=== PATIENT | male | born 1950 | race Caucasian/White ===

== ENCOUNTER 2018-06-12 13:20 | Inpatient (IN) | payer OTHER ==
[2018-06-12] MEDS ORDERED: NA CHLORIDE 0.9% 3,000 ML ONE (13:41)
[2018-06-12] MEDS ORDERED: CEFEPIME 1 GM/100 ML BAG IV ONE (13:42)
[2018-06-12 13:52] LABS: Arterial Blood Carboxyhemoglob 1.3 % (0-1.5); Blood Gas Oxyhemoglobin 92.8 % (94-97); Blood O2 Saturation 94.8 % (92-98.5)
[2018-06-12 14:09] LABS: Absolute Lymphocytes (CBC) 2.7 K/uL (0.7-4.9); Absolute Monocytes 0.5 K/uL (0.1-1.3); Absolute Neutrophil 5.6 K/uL (1.8-8.0); Basophils % 0.5 % (0-1.3); Eosinophils % 4.2 % (0-4.4); Hematocrit 45.5 % (39.6-49.0); Lymphocytes % 28.6 % (15.3-44.8); MCH 26.2 pg (27.0-35.0); MCV 80.4 fL (80-100); MPV 7.3 fL (7.6-11.3); Monocytes % 5.7 % (3.3-12.3); RBC Red Blood Cell Count 5.66 M/uL (4.33-5.43)
--- NOTE | 2018-06-12 14:20 | RAD REPORT ---
EXAM DESCRIPTION: RAD - Chest Single View - 06/12/2018 2:13 pm CLINICAL HISTORY: DYSPNEA Chest pain. COMPARISON: CHEST SINGLE VIEW dated 11/01/2014; CHEST SINGLE VIEW dated 10/29/2014; CHEST SINGLE VIEW dated 03/22/2013; CHEST SINGLE VIEW dated 08/31/2012 FINDINGS: Portable technique limits examination quality. The lungs are grossly clear. Mildly elevated right hemidiaphragm. The heart is normal in size. No dis placed fractures. IMPRESSION: No acute intrathoracic process suspected.
[2018-06-12 14:36] LABS: ALT/SGPT 28 U/L (12-78); AST/SGOT 16 U/L (15-37); Albumin 3.5 g/dL (3.4-5.0); Alkaline Phosphatase 137 U/L (45-117); BUN Blood Urea Nitrogen 11 mg/dL (7-18); Bicarbonate 30 mmol/L (21-32); Bilirubin Direct 0.2 mg/dL (0-0.2); Bilirubin Total 0.3 mg/dL (0.2-1.0); Creatine Phosphokinase 45 U/L (39-308); Glucose Level 231 mg/dL (74-106); Lipase 63 U/L (73-393); Potassium 3.4 mmol/L (3.5-5.1); Protein, Total 8.2 g/dL (6.4-8.2); Sodium Level 138 mmol/L (136-145); Troponin (Emerg Dept Use Only) < 0.02 ng/mL (0.0-0.045)
[2018-06-12 14:44] LABS: Protime INR 1.06
--- NOTE | 2018-06-12 14:54 | EDPHYS ---
Physician Documentation [facility] Name: Kiel Ngo Age: 67 yrs Sex: Male : 1950 Arrival Date: 06/12/2018 Time: 13:29 Bed 4 Private MD: ED Physician Stu Banerjee HPI: 06/12 14:53 This 67 yrs old Male presents to ER via EMS with complaints of High Blood jr8 Sugar. 14:53 Onset: The symptoms/episode began/occurred gradually, 2 day(s) ago. Associated signs jr8 and symptoms: Pertinent positives: shortness of breath. Current symptoms: In the emergency department the patient's symptoms are unchanged from the initial presentation. It is unknown whether or not the patient has had similar symptoms in the past. The patient has not recently seen a physician. EMS called out for hyperglycemic patient. Stated that he has shortness of breath as well. Patient stated that he feels that his heart is racing and has had shortness of breath and fatigue . Historical: - Allergies: 13:33 Demerol; hb - Home Meds: 13:33 Ambien 10 mg Oral tab [Active]; Effexor XR 150 mg Oral cp24 [Active]; tizanidine Oral hb [Active]; - PMHx: 13:33 Diabetes - IDDM; Lymphadema; hb - PSHx: 13:33 Cholecystectomy; hb - Immunization history:: Adult Immunizations up to date. - Social history:: Smoking status: Patient/guardian denies using tobacco. - Ebola Screening: : No symptoms or risks identified at this time. ROS: 15:01 Eyes: Negative for injury, pain, redness, and discharge, ENT: Negative for injury, jr8 pain, and discharge, Neck: Negative for injury, pain, and swelling, Abdomen/GI: Negative for abdominal pain, nausea, vomiting, diarrhea, and constipation, Back: Negative for injury and pain, MS/Extremity: Negative for injury and deformity, Skin: Negative for injury, rash, and discoloration, Neuro: Negative for headache, weakness, numbness, tingling, and seizure. 15:01 Cardiovascular: Positive for palpitations, Negative for chest pain, edema, orthopnea. 15:01 Respiratory: Positive for shortness of breath. Exam: 15:01 Eyes: Pupils equal round and reactive to light, extra-ocular motions intact. Lids and jr8 lashes normal. Conjunctiva and sclera are non-icteric and not injected. Cornea within normal limits. Periorbital areas with no swelling, redness, or edema. ENT: Nares patent. No nasal discharge, no septal abnormalities noted. Tympanic membranes are normal and external auditory canals are clear. Oropharynx with no redness, swelling, or masses, exudates, or evidence of obstruction, uvula midline. Mucous membranes moist. Neck: Trachea midline, no thyromegaly or masses palpated, and no cervical lymphadenopathy. Supple, full range of motion without nuchal rigidity, or vertebral point tenderness. No Meningismus. Respiratory: Lungs have equal breath sounds bilaterally, clear to auscultation and percussion. No rales, rhonchi or wheezes noted. No increased work of breathing, no retractions or nasal flaring. Abdomen/GI: Soft, non-tender, with normal bowel sounds. No distension or tympany. No guarding or rebound. No evidence of tenderness throughout. Back: No spinal tenderness. No costovertebral tenderness. Full range of motion. Skin: Warm, dry with normal turgor. Normal color with no rashes, no lesions, and no evidence of cellulitis. MS/ Extremity: Pulses equal, no cyanosis. Neurovascular intact. Full, normal range of motion. Neuro: Awake and alert, GCS 15, oriented to person, place, time, and situation. Cranial nerves II-XII grossly intact. Motor strength 5/5 in all extremities. Sensory grossly intact. Cerebellar exam normal. Normal gait. 15:01 Cardiovascular: Rate: tachycardic, Rhythm: regular, Pulses: Pulses are 2+ in right radial artery and left radial artery. Heart sounds: normal, normal S1and S2, no S3 or S4, no murmur, no rub, no gallop, Edema: is not appreciated. Vital Signs: 13:25 BP 198 / 106; Pulse 154; Resp 24; Temp 98.8(O); Pulse Ox 95% on R/A; Pain 5/10; hb 13:35 Weight 122.47 kg; Height 5 ft. 11 in. (180.34 cm); hb 13:39 BP 133 / 94; Pulse 139; Resp 18; Pulse Ox 97% on 2 lpm NC; sv 14:20 BP 155 / 78; Pulse 127; Resp 20; Pulse Ox 98% on 2 lpm NC; sv 14:51 BP 159 / 93; Pulse 131; Resp 22; Pulse Ox 98% on 2 lpm NC; sv 15:45 BP 155 / 83; Pulse 121; Resp 21; Pulse Ox 97% on 2 lpm NC; hb 16:34 BP 144 / 91; Pulse 118; Resp 16; Pulse Ox 97% on 2 lpm NC; sv 13:35 Body Mass Index 37.66 (122.47 kg, 180.34 cm) hb MDM: 13:29 Patient medically screened. [facility] 14:52 Data reviewed: vital signs, nurses notes, lab test result(s), EKG, radiologic studies, jr8 plain films. Data interpreted: Pulse oximetry: on room air is 98 %. Interpretation: normal. Counseling: I had a detailed discussion with the patient and/or guardian regarding: the historical points, exam findings, and any diagnostic results supporting the discharge/admit diagnosis, lab results, radiology results, the need for further work-up and treatment in the hospital. Physician consultation: Isai Snow MD was called at 14:52, was contacted at 14:52, regarding admission, to the telemetry unit. consult, patient's condition, and will see patient. 06/12 13:29 Order name: ABG; Complete Time: 14:04 06/12 13:29 Order name: Urine Microscopic Only; Complete Time: 16:33 06/12 13:29 Order name: Basic Metabolic Panel; Complete Time: 14:47 06/12 13:29 Order name: Blood Culture Adult (2) 06/12 13:29 Order name: CBC with Diff; Complete Time: 14:31 06/12 13:29 Order name: CPK; Complete Time: 14:47 06/12 13:29 Order name: Lactate; Complete Time: 14:47 06/12 13:29 Order name: LFT's; Complete Time: 14:47 06/12 13:29 Order name: Lipase; Complete Time: 14:47 06/12 13:29 Order name: Procalcitonin; Complete Time: 14:33 06/12 13:29 Order name: Protime (+inr); Complete Time: 14:47 06/12 13:29 Order name: Ptt, Activated; Complete Time: 14:47 8 06/12 13:29 Order name: Troponin (emerg Dept Use Only); Complete Time: 14:47 [facility] 06/12 13:30 Order name: Glucose, Ancillary Testing; Complete Time: 13:32 EDMS 06/12 13:29 Order name: Chest Single View XRAY; Complete Time: 14:31 8 06/12 13:29 Order name: Accucheck; Complete Time: 13:34 [facility] 06/12 13:29 Order name: Cardiac monitoring; Complete Time: 13:39 8 06/12 13:29 Order name: EKG - Nurse/Tech; Complete Time: 13:39 [facility] 06/12 13:29 Order name: IV Saline Lock - Large Bore; Complete Time: 13:39 [facility] 06/12 13:29 Order name: Labs collected and sent; Complete Time: 13:39 [facility] 06/12 13:29 Order name: O2 Per Protocol; Complete Time: 13:39 [facility] 06/12 14:39 Order name: EKG Electrocardiogram [facility] 06/12 14:45 Order name: Glucose, Ancillary Testing; Complete Time: 14:47 EDMS 06/12 15:43 Order name: Urine Dipstick--Ancillary (enter results) 06/12 15:57 Order name: DD; Complete Time: 16:43 [facility] 06/12 16:43 Order name: CT Chest For PE Angio [facility] 06/12 17:27 Order name: Lactate Sepsis 2 HR Follow-up; Complete Time: 17:28 EDMS 06/12 17:37 Order name: CT; Complete Time: 17:55 EDWA 06/12 13:29 Order name: O2 Sat Monitoring; Complete Time: 13:39 [facility] 06/12 13:29 Order name: Urine Dipstick-Ancillary (obtain specimen); Complete Time: 15:39 jr8 Administered Medications: 13:51 Drug: NS 0.9% (30 ml/kg) 30 ml/kg Route: IV; Rate: bolus; Site: left antecubital; hb 15:30 Follow up: Response: No adverse reaction; IV Status: Completed infusion hb 13:51 Drug: Cefepime 1 grams Route: IVPB; Rate: 200 ml/hr; Infused Over: 30 mins; Site: left hb antecubital; 14:46 Follow up: Response: No adverse reaction; IV Status: Completed infusion; IV Intake: sv 100ml Disposition: 06/12/18 14:53 Hospitalization ordered by Isai Snow for Inpatient Admission. Preliminary diagnosis are Dehydration, Lactic acidosis, Tachycardia, unspecified. - Bed requested for Telemetry/MedSurg (Inpatient). - Status is Inpatient Admission. sv - Condition is Stable. - Problem is new. - Symptoms have improved. UTI on Admission? No Addendum: 06/16/2018 07:41 Co-signature as Attending Physician, Stu Banerjee MD I agree with the assessment and c robbins plan of care. Signatures: Dispatcher [employer] EDCarie Posada RN Stu Bustamante MD MD cha Roszak, Josh, PA PA jr8 Charisma George RN RN Shannan Moraes Corrections: (The following items were deleted from the chart) 06/12 17:11 14:53 Hospitalization Ordered by Isai Snow MD for Inpatient Admission. Preliminary eb diagnosis is Dehydration; Lactic acidosis; Tachycardia, unspecified. Bed requested for Telemetry/MedSurg (Inpatient). Status is Inpatient Admission. Condition is Stable. Problem is new. Symptoms have improved. UTI on Admission? No. jr8 17:43 17:11 06/12/2018 14:53 Hospitalization Ordered by Isai Snow MD for Inpatient sv Admission. Preliminary diagnosis is Dehydration; Lactic acidosis; Tachycardia, unspecified. Bed requested for Telemetry/MedSurg (Inpatient). Status is Inpatient Admission. Condition is Stable. Problem is new. Symptoms have improved. UTI on Admission? No. eb
--- NOTE | 2018-06-12 14:54 | ER ---
Nurse's Notes [facility] Name: Kiel Ngo Age: 67 yrs Sex: Male : 1950 Arrival Date: 06/12/2018 Time: 13:29 Bed 4 Private MD: Diagnosis: Dehydration;Lactic acidosis;Tachycardia, unspecified Presentation: 06/12 13:25 Presenting complaint: EMS states: Called out for high blood sugar 300s and fatigue, pt hb reported BGL was >500 this morning. BP 139/80, HR 219, SpO2 92% on RA, 98% on 4LNC. BGL 390. AFlutter on 12 lead. Transition of care: patient was not received from another setting of care. Onset of symptoms was June 12, 2018. Risk Assessment: Do you want to hurt yourself or someone else? Patient reports no desire to harm self or others. Care prior to arrival: Medication(s) given: Normal saline infusion, 300 ml IV initiated. 20 GA, in the right hand, Glucose check: 390. 13:25 Method Of Arrival: EMS: [facility] hb 13:25 Acuity: JOZEF 2 hb 14:00 Initial Sepsis Screen: Does the patient meet any 2 criteria? Yes Does the patient have hb a suspected source of infection? No. Patient's initial sepsis screen is negative. Historical: - Allergies: 13:33 Demerol; hb - Home Meds: 13:33 Ambien 10 mg Oral tab [Active]; Effexor XR 150 mg Oral cp24 [Active]; tizanidine Oral hb [Active]; - PMHx: 13:33 Diabetes - IDDM; Lymphadema; hb - PSHx: 13:33 Cholecystectomy; hb - Immunization history:: Adult Immunizations up to date. - Social history:: Smoking status: Patient/guardian denies using tobacco. - Ebola Screening: : No symptoms or risks identified at this time. Screenin:30 Abuse screen: Denies threats or abuse. Denies injuries from another. Nutritional hb screening: No deficits noted. Tuberculosis screening: No symptoms or risk factors identified. Fall Risk Total Chow Fall Scale indicates High Risk Score (45 or more points). Fall prevention measures have been instituted. Side Rails Up X 2 Frequent Obs/Assessments Occuring Family Present and informed to notify staff if the need to leave the bedside As available patient and family educated on Fall Prevention Program and Strategies. Assessment: 13:35 General: Appears uncomfortable, ill, obese, Behavior is calm, cooperative. Pain: Pain hb currently is 5 out of 10 on a pain scale. Neuro: Level of Consciousness is awake, alert, obeys commands, Oriented to person, place, time, situation, Pupils are PERRLA. Cardiovascular: Heart tones S1 S2 present Capillary refill < 3 seconds Patient's skin is warm and dry. Rhythm is tachy 150s. Respiratory: Airway is patent Trachea midline Respiratory effort is mildly labored Respiratory pattern is regular, symmetrical, Breath sounds are diminished bilaterally. GI: No signs and/or symptoms were reported involving the gastrointestinal system. : No signs and/or symptoms were reported regarding the genitourinary system. EENT: No signs and/or symptoms were reported regarding the EENT system. Derm: Skin is intact, is healthy with good turgor, BLE edema 2+, yellow crust noted to BLEs. Musculoskeletal: No signs and/or symptoms reported regarding the musculoskeletal system. 14:30 Reassessment: Patient appears in no apparent distress at this time. No changes from hb previously documented assessment. Patient and/or family updated on plan of care and expected duration. Pain level reassessed. 15:45 Reassessment: Patient appears in no apparent distress at this time. Patient and/or hb family updated on plan of care and expected duration. Pain level reassessed. Patient is alert, oriented x 3, equal unlabored respirations, skin warm/dry/pink. Admission ordered, awaiting room assignment and admit orders from hospitalist at this time. 16:45 Reassessment: Patient appears in no apparent distress at this time. Patient and/or hb family updated on plan of care and expected duration. Pain level reassessed. Patient is alert, oriented x 3, equal unlabored respirations, skin warm/dry/pink. Vital Signs: 13:25 BP 198 / 106; Pulse 154; Resp 24; Temp 98.8(O); Pulse Ox 95% on R/A; Pain 5/10; hb 13:35 Weight 122.47 kg; Height 5 ft. 11 in. (180.34 cm); hb 13:39 BP 133 / 94; Pulse 139; Resp 18; Pulse Ox 97% on 2 lpm NC; sv 14:20 BP 155 / 78; Pulse 127; Resp 20; Pulse Ox 98% on 2 lpm NC; sv 14:51 BP 159 / 93; Pulse 131; Resp 22; Pulse Ox 98% on 2 lpm NC; sv 15:45 BP 155 / 83; Pulse 121; Resp 21; Pulse Ox 97% on 2 lpm NC; hb 16:34 BP 144 / 91; Pulse 118; Resp 16; Pulse Ox 97% on 2 lpm NC; sv 13:35 Body Mass Index 37.66 (122.47 kg, 180.34 cm) hb ED Course: 13:29 Patient arrived in ED. jr8 13:29 Abrahan Calero PA is PHCP. jr8 13:29 Stu Banerjee MD is Attending Physician. jr8 13:30 Arm band placed on right wrist. hb 13:31 Patient has correct armband on for positive identification. Placed in gown. Bed in low hb position. Call light in reach. Side rails up X2. case monitor on. Pulse ox on. NIBP on. 13:31 Inserted saline lock: 18 gauge in left antecubital area, using aseptic technique. Blood hb collected. 13:31 Missed attempt(s): 18 gauge in right forearm. Bleeding controlled, band aid applied, mb4 catheter tip intact. 13:44 Charisma George, RN is Primary Nurse. hb 13:49 Triage completed. hb 14:13 Chest Single View XRAY In Process Unspecified. EDMS 14:53 Isai Snow MD is Hospitalizing Provider. jr8 17:30 No provider procedures requiring assistance completed. Patient admitted, IV remains in hb place. Administered Medications: 13:51 Drug: NS 0.9% (30 ml/kg) 30 ml/kg Route: IV; Rate: bolus; Site: left antecubital; hb 15:30 Follow up: Response: No adverse reaction; IV Status: Completed infusion hb 13:51 Drug: Cefepime 1 grams Route: IVPB; Rate: 200 ml/hr; Infused Over: 30 mins; Site: left hb antecubital; 14:46 Follow up: Response: No adverse reaction; IV Status: Completed infusion; IV Intake: sv 100ml Intake: 14:46 IV: 100ml; Total: 100ml. sv Outcome: 14:53 Decision to Hospitalize by Provider. jr8 17:30 Admitted to Med/surg accompanied by tech, family with patient, via stretcher, room 203, hb Report called to DIEGO Lopez 17:30 Condition: stable 17:30 Instructed on the need for admit, Demonstrated understanding of instructions. 17:43 Patient left the ED. sv Signatures: Dispatcher [employer] EDCarie Posada RN RN Abrahan Calero PA PA jr8 Baxter, Heather, RN RN hb Baxter, Mackenzie mb4 Corrections: (The following items were deleted from the chart) 13:40 13:39 Missed attempt(s): 18 gauge in right forearm. Bleeding controlled, band aid mb4 applied, catheter tip intact. mb4 13:45 13:25 BP 98 / 106; Pulse 154bpm; Resp 24bpm; Pulse Ox 95% RA; Temp 98.8F Oral; Pain hb 5/10; hb 14:50 14:30 Reassessment: No changes from previously documented assessment. Patient and/or hb family updated on plan of care and expected duration. Pain level reassessed. hb
[2018-06-12 16:27] LABS: Urine Bacteria <20 /HPF (NONE SEEN); Urine Culture Reflex Order NOT NEEDED; Urine RBC <5 /HPF (NONE SEEN)
[2018-06-12] MEDS: INSULIN -REGULAR HUMAN 50 UNIT/0.5 ML ML SQ SCH ×2 (17:35→21:00)
[2018-06-12] MEDS ORDERED: IPRATROPIUM BROM 0.5MG/2.5ML NEB PRN (17:35)
[2018-06-12] MEDS ORDERED: D50W 25 GM/50 ML SYRINGE IV PRN (17:35)
[2018-06-12] MEDS ORDERED: ACETAMINOPHEN 500 MG TAB PO PRN (17:35)
[2018-06-12] MEDS ORDERED: ALBUTEROL 2.5 MG/3 ML NEB SOL NEB PRN (17:35)
[2018-06-12] MEDS ORDERED: ONDANSETRON 4 MG/2 ML VIAL IV PRN (17:35)
[2018-06-12] MEDS ORDERED: GLUCAGON 1 MG/VIAL IM PRN (17:35)
--- NOTE | 2018-06-12 17:37 | RAD REPORT ---
EXAM DESCRIPTION: CT - Chest For Pe Angio - 06/12/2018 5:16 pm CLINICAL HISTORY: DYSPNEA COMPARISON: CTANGIO CHEST FOR PE dated 10/30/2014; CTANGIO CHEST FOR PE dated 09/15/2010; Chest Single View dated 06/12/2018 TECHNIQUE: Dynamically enhanced axial 3 mm thick images of the chest were obtained during administra tion of <100> mL Isovue 370 IV contrast. Coronal and oblique reconstruction images were generated and reviewed. Exam utilizes a protocol for optimal evaluation of pulmonary arterial tree. Maximum intensity projections 3D imaging was utilized All CT scans are performed using dose optimization technique as appropriate and may include automated exposure control or mA/KV adjustment according to patient size. FINDINGS: A pulmonary embolus is not seen. A thoracic aortic aneurysm is not noted. A pleural effusion is not seen. A pericardial effusion is not seen. Mild right lower lobe atelectasis is present. Fatty infiltration liver is seen. Gynecomastia is noted. A 3 centimeter left thyroid nodule is seen. IMPRESSION: Negative for a pulmonary embolism. 3 centimeter left thyroid nodule. A nonemergent thyroid ultrasound is recommended
[2018-06-12] MEDS: NA CHLORIDE 0.9% 1,000 ML IV SCH (17:58)
[2018-06-12 18:21] VITALS: BMI 36.8
[2018-06-12 20:35] LABS: Urine Appearance CLEAR; Urine Bilirubin NEGATIVE (NEG); Urine Blood NEGATIVE (NEG); Urine Color YELLOW; Urine Glucose NEGATIVE (NEG); Urine Protein NEGATIVE (NEG); Urine Specific Gravity >=1.030 (1.005-1.030); Urine Urobilinogen 0.2 mg/dL (0.2-1.0); Urine pH 6.5 (5.0-7.0)
[2018-06-12 20:40] LABS: Urine Microscopic Reflex NO UMIC
[2018-06-12] MEDS ORDERED: ZOLPIDEM TARTRATE 10 MG TABLET PO PRN (20:56)
--- NOTE | 2018-06-12 21:29 | RAD REPORT ---
EXAM DESCRIPTION: USEXTREM VENOUS W COMPRESS BIL06/12/2018 9:01 pm CLINICAL HISTORY: Bilateral leg swelling COMPARISON: EXT VENOUS W COMPRESSION PATRICIA dated 11/10/2014 FINDINGS: The common femoral, superficial femoral, popliteal and posterior tibial veins bilaterally are compressible and demonstrate augmentation. Doppler demonstrates good flow. IMPRESSION: No evidence of deep venous thrombosis involving either lower extremity.
[2018-06-13] MEDS: NA CHLORIDE 0.9% 1,000 ML IV SCH (05:15)
[2018-06-13 05:31] VITALS: TEMP 97.8
[2018-06-13 05:40] LABS: Absolute Lymphocytes (CBC) 1.8 K/uL (0.7-4.9); Absolute Monocytes 0.4 K/uL (0.1-1.3); Absolute Neutrophil 4.8 K/uL (1.8-8.0); Basophils % 0.8 % (0-1.3); Eosinophils % 4.7 % (0-4.4); Hematocrit 40.8 % (39.6-49.0); Lymphocytes % 24.2 % (15.3-44.8); MCH 25.9 pg (27.0-35.0); MCV 79.8 fL (80-100); MPV 7.2 fL (7.6-11.3); Monocytes % 5.3 % (3.3-12.3); RBC Red Blood Cell Count 5.11 M/uL (4.33-5.43)
[2018-06-13 05:51] LABS: BUN Blood Urea Nitrogen 6 mg/dL (7-18); Bicarbonate 29 mmol/L (21-32); Glucose Level 147 mg/dL (74-106); NT PRO-BNP 178 pg/mL (<125); Potassium 3.7 mmol/L (3.5-5.1); Sodium Level 141 mmol/L (136-145)
--- NOTE | 2018-06-13 06:07 | EKG ---
Test Date: 2018-06-12 Test Time: 13:26:52 Ip Architect: SATHYA MEASUREMENT RESULTS: Intervals: Rate: 141 NH: 104 QRSD: 84 QT: 364 QTc: 557 [place]: P: NH: 104 QRS: 8 T: 33 INTERPRETIVE STATEMENTS: Sinus tachycardia with short NH with fusion complexes Inferior infarct, age undetermined Abnormal ECG Compared to ECG 10/29/2014 16:13:55 Fusion complex(es) now present Short NH interval now present Myocardial infarct finding now present Electronically Signed On 06-13-18 06:06:15 CDT by Ned Allen
[2018-06-13] MEDS ORDERED: PROMETHAZINE 25 MG TABLET PO PRN (07:48)
[2018-06-13] MEDS ORDERED: HYDROMORPHONE ORAL 4 MG TAB PO PRN (07:48)
[2018-06-13] MEDS ORDERED: DIPHENHYDRAMINE 25 MG TAB/CAP PO PRN (07:48)
[2018-06-13] MEDS ORDERED: INSULIN REGULAR SQ SCH (08:00)
[2018-06-13] MEDS ORDERED: INSULIN ISOPHANE SQ SCH (08:00)
[2018-06-13] MEDS: INSULIN -REGULAR HUMAN 50 UNIT/0.5 ML ML SQ SCH ×2 (08:01→12:06)
[2018-06-13] MEDS ORDERED: TIZANIDINE 4 MG TABLET PO SCH (09:00)
[2018-06-13] MEDS ORDERED: HOME MED 1 EA UNK (Venlafaxine Hcl [Effexor Xr] 150 MG) PO SCH (09:00)
[2018-06-13] MEDS ORDERED: ASPIRIN EC 81 MG TAB PO SCH (09:00)
[2018-06-13] MEDS ORDERED: VENLAFAXINE HCL XR 75 MG CAP PO SCH (09:00)
--- NOTE | 2018-06-13 11:12 | P.SSS ---
Patient History Date of Service: 06/13/18 Reason for admission: GLUCOSE WENT HIGH History of Present Illness: MR. KELSEY HAD RAN OUT OF INSULIN. HE WAS LATE AT OFFICE FOR VISIT. I TOLD HIM THAT HIS INSULIN IS OVER THE COUNTER IN [facility] IF HE RUNS OUT. HIS GLUCOSE WAS UP TO 500 AT HOME BUT 200 HERE. HE HAD TACHYCARDIA AND LACTATE WAS HIGH SO THE PA DECIDED TO ADMIT HIM. I HAD HIM DO D DIMER THAT WAS HIGH BUT CT ANGIO AND VENOUS DOPPLER ARE NEGATIVE. HIS D DIMER CAN BE HIGH FROM SEVERE PSORIASIS HE HAS. HE REFUSES TO TAKE INJECTABLES FOR PSORIASIS. HE IS STILL MORBIDLY OBESE AND NOT ABLE TO WALK SINCE COMPLICATIONS OF SURGERIES IN PAST. HE GOES TO PAIN PA TO GET PAIN MEDS AND PUMP FILLED. HE GOES TO PSYCHIATRIST FOR DEPRESSION AND PANIC MEDS. THE PAIN PA QUIT GIVING HIM KLONOPIN SO HE HAD TO GO TO PSYCH MD. HE IS REQUESTING ME TO TAKE CARE OF PSYCH ISSUES. HE IS OFF KLONOPIN AND THAT IS WHY HE MAY HAVE HAD WITHDRAWAL SYMPTOMS THAT MADE HIM COME TO ER. HE IS STABLE FOR DC . THERE ARE NO ACUTE ISSUES. Allergies meperidine HCl [From Demerol] Allergy (Severe, Verified 10/30/14 00:57) Anaphylaxis metformin Allergy (Intermediate, Verified 10/30/14 00:57) Anaphylaxis Clindamycin Allergy (Uncoded 11/10/14 19:03) Unknown Home Medications: Hum Insulin NPH/Reg Insulin Hm [Humulin 70-30 Pen] 50 units SQ DAILY AT SUPPER 10/04/13 Hum Insulin NPH/Reg Insulin Hm [Humulin 70-30 Pen] 55 units SQ BREAKFAST Promethazine HCl 25 mg PO Q6HP PRN 10/04/13 Venlafaxine HCl [Effexor XR] 150 mg PO BID 10/04/13 Zolpidem Tartrate [Ambien] 10 mg PO BEDTIME 10/04/13 Hydromorphone [Dilaudid*] 8 mg PO Q4HP PRN 10/30/14 Diphenhydramine [Benadryl Tab/Cap] 50 mg PO DAILY PRN 06/12/18 Salicylic Acid/Ceramide Cmb #1 [Salicylic Acid 6% Cream Kit] 1 each TP Q6H PRN 06/12/18 Tizanidine [Zanaflex*] 4 mg PO BID 06/12/18 ALPRAZolam [Alprazolam] 0.25 mg PO DAILY PRN #30 tablet 06/13/18 Venlafaxine HCl *Xr* [Effexor XR] 150 mg PO BID #60 cap 06/13/18 Zolpidem Tartrate [Ambien*] 10 mg PO BEDTIME PRN PRN #30 tablet 06/13/18 - Past Medical/Surgical History Has patient received pneumonia vaccine in the past: No Diabetic: Yes -: IDDM -: ANXIETY -: AFIB -: Osteoarthritis -: Pancreatitis -: Lymphedema -: 3 foot surgeries -: PATRICIA knee surgery -: R shoulder surgery -: 3 back surgeries -: CHOLECYSTECTOMY - Family History Father -: Other (see notes) Notes: dementia Mother -: Heart disease - Social History Smoking Status: Never smoker Alcohol use: No CD- Drugs: No Caffeine use: No Place of Residence: Home Review of Systems 10-point ROS is otherwise unremarkable General: Weakness, Malaise Musculoskeletal: Back Pain, Leg Pain, Foot Pain, As per HPI Physical Examination - Vital Signs Temperature: 97.8 F Blood Pressure: 134/77 Pulse: 94 Respirations: 18 Pulse Ox (%): 98 - Physical Exam General: Alert, Mild distress, Obese HEENT: Atraumatic, PERRLA, Mucous membr. moist/pink, EOMI, Sclerae nonicteric Neck: Supple, 2+ carotid pulse no bruit, No LAD, Without JVD or thyroid abnormality Respiratory: Clear to auscultation bilaterally, Normal air movement Cardiovascular: Regular rate/rhythm, Normal S1 S2 Gastrointestinal: Normal bowel sounds, No tenderness Musculoskeletal: No tenderness Integumentary: No rashes Neurological: Normal speech, Other (NOT AMBULATORY, WHEELCHAIR BOUND AND CONTRACTURES IN KNEES AND HIPS.) Lymphatics: No axilla or inguinal lymphadenopathy - Studies Laboratory Data (last 24 hrs) 06/12/18 13:20: PT 12.5, INR 1.06, APTT 35.6 06/12/18 13:20: WBC 9.3, Hgb 14.8, Hct 45.5, Plt Count 458 H 06/12/18 13:20: Sodium 138, Potassium 3.4 L, BUN 11, Creatinine 1.20, Glucose 231 H, Total Bilirubin 0.3, AST 16, ALT 28, Alkaline Phosphatase 137 H, Lipase 63 L - Diagnosis (Problem(s)) (1) Drug withdrawal Current Visit: Yes Status: Acute Plan: CHANGED TO XANAX. HE DOES NOT WANT KLONOPIN AND HE WILL TAKE ONLY PRN XANAX. Qualifiers: Substance type: sedative, hypnotic or anxiolytic Qualified Code(s): F13.239 - Sedative, hypnotic or anxiolytic dependence with withdrawal, unspecified (2) Diabetes mellitus Onset Date: 10/31/14 Current Visit: No Status: Chronic Qualifiers: Diabetes mellitus type: type 2 Diabetes mellitus fdc insulin use: with fdc use Diabetes mellitus complication status: with neurologic complications Diabetes mellitus complication detail: with unspecified neuropathy Qualified Code(s): E11.40 - Type 2 diabetes mellitus with diabetic neuropathy, unspecified; Z79.4 - USP (current) use of insulin - Disposition Disposition: ROUTINE DISCHARGE Condition: FAIR
[2018-06-13 12:03] VITALS: BP 155/75
[2018-06-13 13:27] VITALS: O2SAT 96
[2018-06-13] MEDS ORDERED: INSULIN 70/30 100 UNITS/ML SQ SCH (17:00)
[2018-06-14] MEDS ORDERED: INSULIN 70/30 100 UNITS/ML SQ SCH (08:00)
== END 2018-06-13 13:28 | disposition home or self-care (01) | DRG 897 ==
LOC: ER 13:20 → ERHOLD 16:15 → 2ND 17:27
PROVIDERS: ADMIT Internal Medicine; ATTEND Internal Medicine
DX: F13.239 Sedative, hypnotic or anxiolytic dependence with withdrawal, unspecified (principal); E87.2 Acidosis; R00.0 Tachycardia, unspecified; T42.6X5A Adverse effect of other antiepileptic and sedative-hypnotic drugs, initial encounter; Y92.019 Unspecified place in single-family (private) house as the place of occurrence of the external cause; E11.65 Type 2 diabetes mellitus with hyperglycemia; E11.40 Type 2 diabetes mellitus with diabetic neuropathy, unspecified; Z79.4 Long term (current) use of insulin; E86.0 Dehydration; L40.9 Psoriasis, unspecified; E66.01 Morbid (severe) obesity due to excess calories; Z68.37 Body mass index [BMI] 37.0-37.9, adult; Z88.1 Allergy status to other antibiotic agents; Z88.5 Allergy status to narcotic agent; Z88.8 Allergy status to other drugs, medicaments and biological substances; I48.91 Unspecified atrial fibrillation; M19.90 Unspecified osteoarthritis, unspecified site; Z99.3 Dependence on wheelchair; M24.552 Contracture, left hip; M24.551 Contracture, right hip; M24.562 Contracture, left knee; M24.561 Contracture, right knee; Z91.14 Patient's other noncompliance with medication regimen
CPT/HCPCS: 36415; 71045; 71275; 80048; 80076; 81003; 81015; 82550; 82805; 82962; 83605; 83690; 83880; 84145; 84484; 85025; 85379; 85610; 85730; 87040; 93005; 93970; 96365; 96366; 96368; 99285; J0692; J2405; J7030; Q9967

== ENCOUNTER 2018-06-23 22:57 | Inpatient (IN) | payer OTHER ==
[2018-06-23] MEDS ORDERED: NA CHLORIDE 0.9% 1,000 ML ONE (23:34)
[2018-06-23] MEDS ORDERED: ONDANSETRON 4 MG/2 ML VIAL ONE (23:34)
[2018-06-23] MEDS ORDERED: METOPROLOL TARTRATE 5 MG/5 ML INJ IV ONE (23:34)
[2018-06-23 23:43] LABS: Absolute Lymphocytes (CBC) 0.8 K/uL (0.7-4.9); Absolute Monocytes 0.6 K/uL (0.1-1.3); Absolute Neutrophil 15.3 K/uL (1.8-8.0); Basophils % 0.2 % (0-1.3); Eosinophils % 0.9 % (0-4.4); Hematocrit 40.1 % (39.6-49.0); MCH 26.4 pg (27.0-35.0); MCV 79.8 fL (80-100); MPV 7.2 fL (7.6-11.3); Monocytes % 3.6 % (3.3-12.3); RBC Red Blood Cell Count 5.02 M/uL (4.33-5.43)
[2018-06-23 23:46] LABS: Protime INR 0.97
[2018-06-24 00:02] LABS: Arterial Blood Carboxyhemoglob 1.5 % (0-1.5); Blood Gas Oxyhemoglobin 86.5 % (94-97); Blood O2 Saturation 88.2 % (92-98.5)
[2018-06-24 00:05] LABS: ALT/SGPT 47 U/L (12-78); AST/SGOT 28 U/L (15-37); Albumin 3.3 g/dL (3.4-5.0); Alkaline Phosphatase 136 U/L (45-117); BUN Blood Urea Nitrogen 10 mg/dL (7-18); Bicarbonate 31 mmol/L (21-32); Bilirubin Direct 0.2 mg/dL (0-0.2); Bilirubin Total 0.4 mg/dL (0.2-1.0); CKMB Creatine Kinase MB < 1.0 ng/mL (0.3-3.6); Creatine Phosphokinase 52 U/L (39-308); Glucose Level 173 mg/dL (74-106); NT PRO-BNP 102 pg/mL (<125); Potassium 3.9 mmol/L (3.5-5.1); Sodium Level 137 mmol/L (136-145); Troponin (Emerg Dept Use Only) < 0.02 ng/mL (0.0-0.045)
[2018-06-24 00:13] LABS: Blood Morphology Comment NOT SEEN (NOT SEEN); Platelet Estimate ADEQ
--- NOTE | 2018-06-24 02:44 | EDPHYS ---
Physician Documentation [facility] Name: Kiel Ngo Age: 67 yrs Sex: Male : 1950 Arrival Date: 06/23/2018 Time: 22:58 Bed 23 Private MD: Isai Snow V ED Physician Shankar Lange HPI: 06/23 23:29 This 67 yrs old Male presents to ER via EMS with complaints of Vomiting, High pkl Blood Sugar. 23:29 The patient presents to the emergency department with nausea, vomiting. Onset: The pkl symptoms/episode began/occurred just prior to arrival, 1 hour(s) ago. Associated signs and symptoms: Pertinent positives: Elevated blood sugar. Historical: - Allergies: 23:14 Demerol; jb4 06/24 00:07 metformin; jb4 - Home Meds: 06/23 23:14 Ambien 10 mg Oral tab [Active]; Effexor XR 150 mg Oral cp24 [Active]; tizanidine Oral jb4 [Active]; 06/24 00:07 alprazolam 0.25 mg Oral tab [Active]; venlafaxine 150 mg oral cp24 1 cap twice a day jb4 [Active]; Ambien 10 mg Oral tab 1 tab once daily [Active]; Benadryl 50mg Oral [Active]; Humulin 70/30 55units Sub-Q at breakfast [Active]; Humulin 70/30 50 units Sub-Q at supper [Active]; hydromorphone 8 mg Oral tab 1 tab every 4 hours [Active]; Salicylic Acid/ Ceramide Cmb #1 [Active]; tizanidine 4 mg oral cap [Active]; - PMHx: 06/23 23:14 Diabetes - IDDM; Lymphadema; jb4 06/24 00:07 Atrial Fib; Hypertension; jb4 - PSHx: 06/23 23:14 Cholecystectomy; jb4 06/24 00:07 Back surgery; knee Surgery; Foot surgery; jb4 - Immunization history:: Adult Immunizations unknown, Last tetanus immunization: unknown, Flu vaccine is not up to date. - Social history:: Smoking status: Patient/guardian denies using tobacco. - Ebola Screening: : No symptoms or risks identified at this time. ROS: 06/23 23:32 Eyes: Negative for injury, pain, redness, and discharge, ENT: Negative for injury, pkl pain, and discharge, Neck: Negative for injury, pain, and swelling, Cardiovascular: Negative for chest pain, palpitations, and edema, Respiratory: Negative for shortness of breath, cough, wheezing, and pleuritic chest pain. Abdomen/GI: Positive for nausea and vomiting. Back: Negative for acute changes. : Negative for urinary symptoms. MS/extremity: Negative for acute changes. Skin: Positive for diaphoresis. Neuro: Negative for altered mental status, loss of consciousness. Exam: 23:32 Head/Face: Normocephalic, atraumatic. Eyes: Pupils equal round and reactive to light, pkl extra-ocular motions intact. Lids and lashes normal. Conjunctiva and sclera are non-icteric and not injected. Cornea within normal limits. Periorbital areas with no swelling, redness, or edema. ENT: Nares patent. No nasal discharge, no septal abnormalities noted. Tympanic membranes are normal and external auditory canals are clear. Oropharynx with no redness, swelling, or masses, exudates, or evidence of obstruction, uvula midline. Mucous membranes moist. Neck: Trachea midline, no thyromegaly or masses palpated, and no cervical lymphadenopathy. Supple, full range of motion without nuchal rigidity, or vertebral point tenderness. No Meningismus. Chest/axilla: Normal chest wall appearance and motion. Nontender with no deformity. No lesions are appreciated. Cardiovascular: Regular rate and rhythm with a normal S1 and S2. No gallops, murmurs, or rubs. Normal PMI, no JVD. No pulse deficits. Respiratory: Lungs have equal breath sounds bilaterally, clear to auscultation and percussion. No rales, rhonchi or wheezes noted. No increased work of breathing, no retractions or nasal flaring. Abdomen/GI: Soft, non-tender, with normal bowel sounds. No distension or tympany. No guarding or rebound. No evidence of tenderness throughout. Back: No spinal tenderness. No costovertebral tenderness. Full range of motion. 23:32 Skin: Appearance: diaphoresis is noted. 23:32 Neuro: Exam negative for acute changes, Mentation: is normal, Cranial nerves: grossly normal, Motor: is normal. Vital Signs: 23:15 BP 193 / 74; Pulse 147; Resp 20; Temp 99.2; Pulse Ox 98% on 3 lpm NC; Weight 119.75 kg; jb4 Height 5 ft. 11 in. (180.34 cm) (R); 23:38 BP 171 / 96; Pulse 148; Resp 18; Pulse Ox 91% on 3 lpm NC; jb4 23:43 BP 143 / 86; Pulse 120; Resp 18; Pulse Ox 94% on 3 lpm NC; jb4 23:48 BP 139 / 85; Pulse 116; Resp 18; Pulse Ox 94% on R/A; jb4 06/24 00:45 BP 126 / 70; Pulse 119; Resp 18; Pulse Ox 95% on 3 lpm NC; jb4 02:11 BP 130 / 58; Pulse 114; Resp 18; Pulse Ox 95% on 3 lpm NC; jb4 03:00 BP 133 / 54; Pulse 114; Resp 18 S; Pulse Ox 95% on 3 lpm NC; Pain 9/10; jb4 06/23 23:15 Body Mass Index 36.82 (119.75 kg, 180.34 cm) [facility] MDM: 06/23 23:20 Patient medically screened. pkl 06/24 02:41 Data reviewed: vital signs, nurses notes, lab test result(s), EKG, radiologic studies, pkl CT scan, plain films. 06/23 23:21 Order name: Basic Metabolic Panel; Complete Time: 00:32 lp06/23 23:21 Order name: CBC with Diff; Complete Time: 00:32 lp06/23 23:21 Order name: Ckmb; Complete Time: 00:32 lp06/23 23:21 Order name: CPK; Complete Time: 00:32 lp06/23 23:21 Order name: LFT's; Complete Time: 00:32 lp06/23 23:21 Order name: Magnesium; Complete Time: 00:32 lp06/23 23:21 Order name: NT PRO-BNP; Complete Time: 00:32 lp06/23 23:21 Order name: PT-INR; Complete Time: 00:32 lp06/23 23:21 Order name: Ptt, Activated; Complete Time: 00:32 lp1 06/23 23:21 Order name: Troponin (emerg Dept Use Only); Complete Time: 00:32 lp06/23 23:28 Order name: ABG; Complete Time: 00:32 pkl 06/23 23:44 Order name: Manual Differential; Complete Time: 00:32 EDMS 06/24 02:14 Order name: Urine Dipstick--Ancillary (enter results) ms 06/23 23:21 Order name: XRAY Chest (1 view) 1 06/23 23:21 Order name: EKG; Complete [facility]: [facility]22 [facility] 06/[facility] 23:21 Order name: Cardiac monitoring; Complete Time: 23:21 1 06/23 23:21 Order name: EKG - Nurse/Tech; Complete Time: 23:21 1 06/24 00:38 Order name: CT Chest For PE Angio pkl 06/24 02:53 Order name: Consistent Carb (ADA) [address] EDMS 06/24 02:53 Order name: Basic Metabolic Panel EDMS 06/24 02:54 Order name: Basic Metabolic Panel EDMS 06/24 02:54 Order name: CBC with Automated Diff EDMS 06/24 02:54 Order name: CBC with Automated Diff EDMS 06/23 23:21 Order name: IV Saline Lock; Complete Time: 23:21 1 06/23 23:21 Order name: Labs collected and sent; Complete Time: [facility]:22 [facility] 06/23 23:21 Order name: O2 Per Protocol; Complete Time: 23:22 [facility] 06/23 23:21 Order name: O2 Sat Monitoring; Complete Time: 23:22 [facility] 06/23 23:21 Order name: Urine Dipstick-Ancillary (obtain specimen); Complete Time: 02:16 [facility] 06/23 23:31 Order name: Accucheck: q hourly; Complete Time: 05:12 pkl Administered Medications: 06/23 23:37 Drug: NS 0.9% 1000 ml Route: IV; Rate: 1000 ml; Site: left antecubital; 1 06/24 00:04 Follow up: Changed to IV to R Forearm lp1 00:45 Follow up: Response: No adverse reaction; IV Status: Completed infusion 4 06/23 23:37 Drug: Zofran 4 mg Route: IVP; Site: left antecubital; 1 06/24 00:15 Follow up: Response: No adverse reaction; Nausea is decreased [facility] 06/23 23:38 Drug: Lopressor 5 mg Route: IVP; Site: left antecubital; jb4 23:43 Drug: Lopressor 5 mg Route: IVP; Site: left antecubital; jb4 23:48 Drug: Lopressor 5 mg Route: IVP; Site: left antecubital; jb4 06/24 02:24 Follow up: Response: No adverse reaction jb4 00:26 Not Given (Physician Discretion; BS \T\191): Insulin Regular Human 10 units IVP once jb4 03:13 Drug: Zofran 4 mg Route: IVP; Site: right antecubital; jb4 03:43 Follow up: Response: No adverse reaction jb4 03:15 Drug: morphine 2 mg Route: IVP; Site: right antecubital; jb4 03:43 Follow up: Response: No adverse reaction; Pain is decreased jb4 Point of Care Testing: Blood Glucose: 06/23 23:44 Blood Glucose: 191 mg/dL; lp1 06/24 00:45 Blood Glucose: 140 mg/dL; jb4 02:00 Blood Glucose: 106 mg/dL; jb4 03:00 Blood Glucose: 90 mg/dL; jb4 04:20 Blood Glucose: 92 mg/dL; cc Ranges: Critical Glucose Levels:Adult <50 mg/dl or >400 mg/dl <40 mg/dl or >180 mg/dl Disposition: 06/24/18 02:44 Hospitalization ordered by Isai Snow for Inpatient Admission. Preliminary diagnosis is Acute dyspnea. Pneumonia. Recurrent vomiting. - Bed requested for Telemetry/MedSurg (Inpatient). - Status is Inpatient Admission. ss - Condition is Stable. - Problem is new. - Symptoms have improved. UTI on Admission? No Signatures: Dispatcher [employer] [facility] [place] Rufina Staples, RN RN Shankar Child MD MD pkl [employer], Maria ms Paris Mar RN RN ss Nicole Hammond RN RN lp1 Ankit Hall RN RN jb4 Corrections: (The following items were deleted from the chart) 06/23 23:35 23:34 HEMOGLOBIN A1C+CHEM A1C.LAB.BRZ ordered. [facility] 06/24 03:52 06/23 23:14 Immunization history: Adult Immunizations jb4 [facility] 06/24 05:39 02:44 Hospitalization Ordered by Isai Snow MD for Inpatient Admission. Preliminary ms diagnosis is Acute dyspnea. Pneumonia. Recurrent vomiting. Bed requested for Telemetry/MedSurg (Inpatient). Status is Inpatient Admission. Condition is Stable. Problem is new. Symptoms have improved. UTI on Admission? No. pkl 07:44 05:39 06/24/2018 02:44 Hospitalization Ordered by Isai Snow MD for Inpatient dw Admission. Preliminary diagnosis is Acute dyspnea. Pneumonia. Recurrent vomiting. Bed requested for [facility] ER HOLD. Status is Inpatient Admission. Condition is Stable. Problem is new. Symptoms have improved. UTI on Admission? No. ms 08:32 07:44 06/24/2018 02:44 Hospitalization Ordered by Isai Snow MD for Inpatient ss Admission. Preliminary diagnosis is Acute dyspnea. Pneumonia. Recurrent vomiting. Bed requested for Telemetry/MedSurg (Inpatient). Status is Inpatient Admission. Condition is Stable. Problem is new. Symptoms have improved. UTI on Admission? No. dw
--- NOTE | 2018-06-24 02:44 | ER ---
Nurse's Notes [facility] Name: Kiel Ngo Age: 67 yrs Sex: Male : 1950 Arrival Date: 06/23/2018 Time: 22:58 Bed 23 Private MD: Isai Snow V Diagnosis: Acute dyspnea. Pneumonia. Recurrent vomiting Presentation: 06/23 23:09 Presenting complaint: EMS states: Pt has N/V that started about an hour ago. Pt reports jb4 taken his own BS and reading \T\ 400. Pt took own insulin after checking. Pt was hospitalized last week for dehydration. States having similar symptoms. Transition of care: patient was not received from another setting of care. Onset of symptoms was June 23, 2018 at 22:00. Risk Assessment: Do you want to hurt yourself or someone else? Patient reports no desire to harm self or others. Initial Sepsis Screen: Does the patient meet any 2 criteria? HR > 90 bpm. Yes Does the patient have a suspected source of infection? No. Patient's initial sepsis screen is negative. Care prior to arrival: Glucose check: 191 Oxygen administered. via nasal cannula. 23:09 Method Of Arrival: EMS: [facility] jb4 23:09 Acuity: JOZEF 3 jb4 Triage Assessment: 23:17 General: Appears in no apparent distress. uncomfortable, Behavior is calm, cooperative, jb4 appropriate for age. Pain: Complains of pain in right foot, left foot, anterior aspect of right shoulder, right leg and left leg Pain does not radiate. Pain began years ago. EENT: No signs and/or symptoms were reported regarding the EENT system. Neuro: Level of Consciousness is awake, alert, obeys commands, Oriented to person, place, time, situation. Cardiovascular: Heart tones S1 S2 present Patient's skin is warm and dry. Rhythm is sinus tachycardia. Respiratory: Airway is patent Respiratory effort is even, unlabored, Respiratory pattern is regular, symmetrical. GI: Abdomen is round Pt is actively vomiting bile, Bowel sounds present X 4 quads. Abd is soft and non tender X 4 quads. Reports nausea, vomiting, since 2200 Patient currently denies diarrhea. : No signs and/or symptoms were reported regarding the genitourinary system. Derm: Skin is clammy, Skin is pale, Skin temperature is warm Dry scaly skin generalized to body. Pt reports history of psoriasis and lymphedema. Musculoskeletal: No signs and/or symptoms reported regarding the musculoskeletal system. Historical: - Allergies: 23:14 Demerol; jb4 06/24 00:07 metformin; jb4 - Home Meds: 06/23 23:14 Ambien 10 mg Oral tab [Active]; Effexor XR 150 mg Oral cp24 [Active]; tizanidine Oral jb4 [Active]; 06/24 00:07 alprazolam 0.25 mg Oral tab [Active]; venlafaxine 150 mg oral cp24 1 cap twice a day jb4 [Active]; Ambien 10 mg Oral tab 1 tab once daily [Active]; Benadryl 50mg Oral [Active]; Humulin 70/30 55units Sub-Q at breakfast [Active]; Humulin 70/30 50 units Sub-Q at supper [Active]; hydromorphone 8 mg Oral tab 1 tab every 4 hours [Active]; Salicylic Acid/ Ceramide Cmb #1 [Active]; tizanidine 4 mg oral cap [Active]; - PMHx: 06/23 23:14 Diabetes - IDDM; Lymphadema; jb4 06/24 00:07 Atrial Fib; Hypertension; jb4 - PSHx: 06/23 23:14 Cholecystectomy; jb4 06/24 00:07 Back surgery; knee Surgery; Foot surgery; jb4 - Immunization history:: Adult Immunizations unknown, Last tetanus immunization: unknown, Flu vaccine is not up to date. - Social history:: Smoking status: Patient/guardian denies using tobacco. - Ebola Screening: : No symptoms or risks identified at this time. Screenin/11 23:28 Abuse screen: Denies threats or abuse. Nutritional screening: No deficits noted. jb4 Tuberculosis screening: No symptoms or risk factors identified. Fall Risk IV access (20 points). Gait- Normal/Bed Rest/Wheelchair (0 pts) Total Chow Fall Scale indicates No Risk (0-24 pts). Assessment: 23:27 General: See triage assessment.. GI: Abdomen is round Pt is actively vomiting bile, jb4 Bowel sounds present X 4 quads. Abd is soft and non tender X 4 quads. 06/24 00:54 Reassessment: Patient appears in no apparent distress at this time. Patient and/or jb4 family updated on plan of care and expected duration. Pain level reassessed. Patient is alert, oriented x 3, equal unlabored respirations, skin warm/dry/pink. Radiology at the bedside. 01:00 Reassessment: Pt to CT. jb4 01:45 Reassessment: Patient appears in no apparent distress at this time. Patient and/or jb4 family updated on plan of care and expected duration. Pain level reassessed. Patient is alert, oriented x 3, equal unlabored respirations, skin warm/dry/pink. Pt back from CT. 03:00 Reassessment: Patient appears in no apparent distress at this time. Patient and/or jb4 family updated on plan of care and expected duration. Pain level reassessed. Patient is alert, oriented x 3, equal unlabored respirations, skin warm/dry/pink. Pt reporting pain \T\ /10. Provider notified, see [facility] for order. BGL 90, provider notified, snack provided. 03:53 Reassessment: See [facility] for further assessments. [facility] [place] Vital Signs: 06/23 23:15 BP 193 / 74; Pulse 147; Resp 20; Temp 99.2; Pulse Ox 98% on 3 lpm NC; Weight 119.75 kg; jb4 Height 5 ft. 11 in. (180.34 cm) (R); 23:38 BP 171 / 96; Pulse 148; Resp 18; Pulse Ox 91% on 3 lpm NC; jb4 23:43 BP 143 / 86; Pulse 120; Resp 18; Pulse Ox 94% on 3 lpm NC; jb4 23:48 BP 139 / 85; Pulse 116; Resp 18; Pulse Ox 94% on R/A; jb4 06/24 00:45 BP 126 / 70; Pulse 119; Resp 18; Pulse Ox 95% on 3 lpm NC; jb4 02:11 BP 130 / 58; Pulse 114; Resp 18; Pulse Ox 95% on 3 lpm NC; jb4 03:00 BP 133 / 54; Pulse 114; Resp 18 S; Pulse Ox 95% on 3 lpm NC; Pain 9/10; jb4 06/23 23:15 Body Mass Index 36.82 (119.75 kg, 180.34 cm) [facility] [place] ED Course: 06/23 22:58 Patient arrived in ED. am2 22:58 Isai Snow MD is Private Physician. am2 23:09 Ankit Hall, RN is Primary Nurse. jb4 23:12 Triage completed. jb4 23:20 Shankar Lange MD is Attending Physician. pkl 23:22 Inserted saline lock: 22 gauge in left antecubital area, using aseptic technique. Blood lp1 collected. 23:22 EKG done, by ED staff, reviewed by Shankar Lange MD. jb4 23:28 Patient has correct armband on for positive identification. Placed in gown. Bed in low jb4 position. Call light in reach. Side rails up X2. ekg monitor on. Pulse ox on. NIBP on. 23:52 XRAY Chest (1 view) In Process Unspecified. EDMS 06/24 00:02 Missed attempt(s): 20 gauge in right forearm. Inserted saline lock: 22 gauge in right lp1 forearm, using aseptic technique. 00:02 Arm band placed on right wrist. lp1 00:19 X-ray completed. Portable x-ray completed in exam room. Patient tolerated procedure kw well. 00:55 Radiology exam delayed due to ER nurse doing labs at this time. jg6 01:[address] via stretcher. kw1 01:34 CT Chest For PE Angio In Process Unspecified. EDMS 01:35 CT completed. Patient tolerated procedure well. Patient moved back from CT. kw1 02:42 Isai Snow MD is Hospitalizing Provider. pkl 03:52 No provider procedures requiring assistance completed. Patient admitted, IV remains in jb4 place. Administered Medications: 06/23 23:37 Drug: NS 0.9% 1000 ml Route: IV; Rate: 1000 ml; Site: left antecubital; lp1 06/24 00:04 Follow up: Changed to IV to R Forearm lp1 00:45 Follow up: Response: No adverse reaction; IV Status: Completed infusion jb4 06/23 23:37 Drug: Zofran 4 mg Route: IVP; Site: left antecubital; lp1 06/24 00:15 Follow up: Response: No adverse reaction; Nausea is decreased jb4 06/23 23:38 Drug: Lopressor 5 mg Route: IVP; Site: left antecubital; jb4 23:43 Drug: Lopressor 5 mg Route: IVP; Site: left antecubital; jb4 23:48 Drug: Lopressor 5 mg Route: IVP; Site: left antecubital; jb4 06/24 02:24 Follow up: Response: No adverse reaction jb4 00:26 Not Given (Physician Discretion; BS \T\191): Insulin Regular Human 10 units IVP once jb4 03:13 Drug: Zofran 4 mg Route: IVP; Site: right antecubital; jb4 03:43 Follow up: Response: No adverse reaction jb4 03:15 Drug: morphine 2 mg Route: IVP; Site: right antecubital; jb4 03:43 Follow up: Response: No adverse reaction; Pain is decreased jb4 Point of Care Testing: Blood Glucose: 06/23 23:44 Blood Glucose: 191 mg/dL; lp1 06/24 00:45 Blood Glucose: 140 mg/dL; jb4 02:00 Blood Glucose: 106 mg/dL; jb4 03:00 Blood Glucose: 90 mg/dL; jb4 04:20 Blood Glucose: 92 mg/dL; cc Ranges: Intake: Outcome: 02:44 Decision to Hospitalize by Provider. pk 03:52 Admitted to ER Hold. Please see [facility] for further documentation. jb4 03:52 Condition: stable 03:52 Instructed on the need for admit, Demonstrated understanding of instructions. 08:32 Patient left the ED. ss Signatures: Dispatcher [employer] EDMS Shankar Lange MD MD pkl Paris Mar RN RN ss Toya Suarez [place] cc Nicole Hammond RN RN lp1 Ankit Hall RN RN jb4 Katharine Arthur am2 Letty Ding kw1 Marti Rodríguez jg6 Corrections: (The following items were deleted from the chart) 06/23 23:57 23:09 Presenting complaint: EMS states: Pt has N/V that started about an hour ago. jb4 jb4 06/24 00:06/23 23:17 Cardiovascular: Patient's skin is warm and dry. jb4 jb4 06/24 00:06/23 23:09 Care prior to arrival: None. jb4 jb4 06/24 00:06/23 23:09 Presenting complaint: EMS states: Pt has N/V that started about an hour jb4 ago. Pt reports taken his own BS and reading \T\ 400. We got the BS at 191. jb4 06/24 00:20 06/23 23:17 GI: Abdomen is round Bowel sounds present X 4 quads. Abd is soft and non jb4 tender X 4 quads. Reports nausea, vomiting, since 2199 Patient currently denies diarrhea, jb4 06/24 00:20 06/23 23:27 GI: Abdomen is round Bowel sounds present X 4 quads. Abd is soft and non jb4 tender X 4 quads. jb4 06/24 03:27 03:00 Reassessment: Patient appears in no apparent distress at this time. Patient jb4 and/or family updated on plan of care and expected duration. Pain level reassessed. Patient is alert, oriented x 3, equal unlabored respirations, skin warm/dry/pink. Pt reporting pain \T\ 06/22. Provider notified, see [facility] for order. jb4 03:32 06/23 23:17 Derm: Skin is pink, warm \T\ dry. Dry scaly skin generalized to body. Pt jb4 reports history of psoriasis and lymphedema. 4 06/24 03:52 06/23 23:14 Immunization history: Adult Immunizations jb4 jb4
[2018-06-24] MEDS ORDERED: ALBUTEROL 2.5 MG/3 ML NEB SOL NEB PRN (02:48)
[2018-06-24] MEDS ORDERED: ACETAMINOPHEN 500 MG TAB PO PRN (02:48)
[2018-06-24] MEDS ORDERED: IPRATROPIUM BROM 0.5MG/2.5ML NEB PRN (02:48)
[2018-06-24 03:13] LABS: Urine Blood NEGATIVE (NEG); Urine Glucose NEGATIVE (NEG); Urine Protein NEGATIVE (NEG); Urine Specific Gravity 1.015 (1.005-1.030); Urine pH 6.5 (5.0-7.0)
[2018-06-24] MEDS ORDERED: ONDANSETRON 4 MG/2 ML VIAL ONE (03:18)
[2018-06-24] MEDS ORDERED: MORPHINE 4 MG/ML SYR ONE (03:18)
[2018-06-24] MEDS: Levofloxacin 750mg IV 750 MG/150 ML BAG IV SCH (03:44)
[2018-06-24 03:47] VITALS: BMI 36.8
--- NOTE | 2018-06-24 08:19 | RAD REPORT ---
EXAM DESCRIPTION: RAD - Chest Single View - 06/23/2018 11:52 pm CLINICAL HISTORY: COUGH Chest pain. COMPARISON: Chest Single View dated 06/12/2018; CHEST SINGLE VIEW dated 11/01/2014; CHEST SINGLE VIEW dated 10/29/2014; CHEST SINGLE VIEW dated 03/22/2013; Chest For Pe Angio dated 06/24/2018; Chest For Pe Angio dated 06/12/2018 FINDINGS: Portable technique limits examination quality. Airspace opacity is present in the right lung base with elevated right hemidiaphragm, likely a combin ation of atelectasis and pneumonia. The left lung appears grossly clear. The heart is mildly prominen t in size. No displaced fractures.
--- NOTE | 2018-06-24 08:28 | RAD REPORT ---
EXAM DESCRIPTION: CT - Chest For Pe Angio - 06/24/2018 4:35 am CLINICAL HISTORY: Chest pain. Dyspnea;Fever COMPARISON: Chest For Pe Angio dated 06/12/2018 TECHNIQUE: CT angiogram of the pulmonary arteries was performed with MIP. All CT scans are performed using dose optimization technique as appropriate and may include automated exposure control or mA/KV adjustment according to patient size. FINDINGS: No evidence of pulmonary thromboembolism. No acute aortic finding demonstrated. Bibasilar lung opacities are present, greater on the right likely representing atelectasis or develop ing pneumonia. Poorly defined inflammatory opacities also suspected right middle lobe. No significant pericardial or pleural fluid. No concerning bony finding. IMPRESSION: No evidence of pulmonary thromboembolism. Bibasilar lung opacities, greater on the right, suggesting atelectasis and/or pneumonia. A component of aspiration is also a possibility.
[2018-06-24] MEDS ORDERED: PNEUMOCOCCAL VACCINE 0.5 ML IMVAC ONE (10:00)
--- NOTE | 2018-06-24 12:10 | EKG ---
Test Date: 2018-06-23 Test Time: 23:16:55 Benefits Technician: MIHAI MEASUREMENT RESULTS: Intervals: Rate: 148 MS: 112 QRSD: 88 QT: 338 QTc: 530 [place]: P: MS: 112 QRS: 33 T: 29 INTERPRETIVE STATEMENTS: Sinus tachycardia Otherwise normal ECG Compared to ECG 06/12/2018 13:26:52 Fusion complex(es) no longer present Short MS interval no longer present Myocardial infarct finding no longer present Electronically Signed On 06-24-18 12:08:41 CDT by Ned Allen
[2018-06-24] MEDS ORDERED: ONDANSETRON 4 MG/2 ML VIAL IV PRN (13:11)
[2018-06-24] MEDS ORDERED: PROMETHAZINE 25 MG TABLET PO PRN (13:12)
[2018-06-24] MEDS ORDERED: DIPHENHYDRAMINE 25 MG TAB/CAP PO PRN (13:12)
[2018-06-24] MEDS ORDERED: [UNRECOGNIZED DRUG - OTHER] TP PRN (13:12)
[2018-06-24] MEDS ORDERED: ZOLPIDEM TARTRATE 10 MG TABLET PO PRN (13:12)
[2018-06-24] MEDS ORDERED: SALICYLIC ACID TP PRN (13:12)
[2018-06-24] MEDS: HYDROMORPHONE ORAL 4 MG TAB PO PRN (13:47)
[2018-06-24] MEDS: TIZANIDINE 4 MG TABLET PO SCH (17:26)
[2018-06-24] MEDS: ALPRAZOLAM 0.25 MG TABLET PO PRN (17:27)
--- NOTE | 2018-06-24 17:47 | P.HP ---
Certification for Inpatient Patient admitted to: Observation With expected LOS: <2 Midnights Practitioner: I am a practitioner with admitting privileges, knowledge of patient current condition, hospital course, and medical plan of care. Services: Services provided to patient in accordance with Admission requirements found in Title 42 Section 412.3 of the Code of Federal Regulations Patient History Date of Service: 06/24/18 Reason for admission: NAUSEA , VOMITING AND ABDOMEN PAIN ONE DAY. History of Present Illness: MR. KELSEY COMES WITH ABOVE COMPLAINTS. HE HAS NAUSEA, VOMITING AND UPPER ABDOMEN PAIN. HE WAS GOOD WITH NO COMPLAINTS DAY BEFORE. HE HAS NO COUGH, SPUTUM OR DYSPNEA. Allergies meperidine HCl [From Demerol] Allergy (Severe, Verified 10/30/14 00:57) Anaphylaxis metformin Allergy (Intermediate, Verified 10/30/14 00:57) Anaphylaxis Clindamycin Allergy (Uncoded 11/10/14 19:03) Unknown Home Medications: Hum Insulin NPH/Reg Insulin Hm [Humulin 70-30 Pen] 50 units SQ DAILY AT SUPPER 10/04/13 Hum Insulin NPH/Reg Insulin Hm [Humulin 70-30 Pen] 55 units SQ BREAKFAST Promethazine HCl 25 mg PO Q6HP PRN 10/04/13 Venlafaxine HCl [Effexor XR] 150 mg PO BID 10/04/13 Hydromorphone [Dilaudid*] 8 mg PO Q4HP PRN 10/30/14 Diphenhydramine [Benadryl Tab/Cap] 50 mg PO DAILY PRN 06/12/18 Salicylic Acid/Ceramide Cmb #1 [Salicylic Acid 6% Cream Kit] 1 each TP Q6H PRN 06/12/18 Tizanidine [Zanaflex*] 4 mg PO BID 06/12/18 ALPRAZolam [Alprazolam] 0.25 mg PO DAILY PRN #30 tablet 06/13/18 Zolpidem Tartrate [Ambien*] 10 mg PO BEDTIME PRN PRN #30 tablet 06/13/18 - Past Medical/Surgical History Has patient received pneumonia vaccine in the past: No Diabetic: Yes -: IDDM -: ANXIETY -: AFIB -: Osteoarthritis -: Pancreatitis -: Lymphedema -: 3 foot surgeries -: PATRICIA knee surgery -: R shoulder surgery -: 3 back surgeries -: CHOLECYSTECTOMY - Family History Father -: Other (see notes) Notes: dementia Mother -: Heart disease - Social History Smoking Status: Never smoker Alcohol use: No CD- Drugs: No Caffeine use: Yes Place of Residence: Home Review of Systems 10-point ROS is otherwise unremarkable General: Weakness, Malaise Gastrointestinal: Nausea, Vomiting, Abdominal Pain Physical Examination - Vital Signs Temperature: 97.5 F Blood Pressure: 169/74 Pulse: 97 Respirations: 18 Pulse Ox (%): 98 - Physical Exam General: Alert, In no apparent distress, Obese HEENT: Atraumatic, PERRLA, Mucous membr. moist/pink, EOMI, Sclerae nonicteric Neck: Supple, 2+ carotid pulse no bruit, No LAD, Without JVD or thyroid abnormality Respiratory: Clear to auscultation bilaterally, Normal air movement Cardiovascular: Regular rate/rhythm, Normal S1 S2 Gastrointestinal: Normal bowel sounds, No tenderness Musculoskeletal: No tenderness, Contractures (FROM SURGICAL FAILURE OF KNEES YEARS AGO.) Integumentary: No rashes Neurological: Normal speech, Abnormal gait (NOT ABLE TO WALK.) Lymphatics: No axilla or inguinal lymphadenopathy - Studies Laboratory Data (last 24 hrs) 06/23/18 23:10: PT 11.5, INR 0.97, APTT 32.6 06/23/18 23:10: WBC 17.0 H D, Hgb 13.2 L, Hct 40.1, Plt Count 375 06/23/18 23:10: Sodium 137, Potassium 3.9, BUN 10, Creatinine 1.00, Glucose 173 H, Magnesium 2.0, Total Bilirubin 0.4, AST 28, ALT 47, Alkaline Phosphatase 136 H Assessment and Plan - Problems (Diagnosis) (1) Nausea and vomiting Current Visit: Yes Status: Acute Plan: NEW ISSUE. I AM NOT SURE WHY ER DOCTOR ORDERED CT SCAN OF CHEST. HE HAS NO PNEUMONIA SYMPTOMS AND WHAT WE SEE ON CT IS NOT PNEUMONIA . IT IS ATELACTASIS FROM REDUCED BREATHING FROM MORBID OBESITY. I WILL FU. I ORDERED CT ABDOMEN AND PELVIS NO REPORT READY YET. (2) Diabetes mellitus Onset Date: 10/31/14 Current Visit: No Status: Chronic Plan: NOT WELL CONTROLLED. 'NOT WATCHING DIET. Qualifiers: - Advance Directives Does patient have a Living Will: No Does patient have a Durable POA for Healthcare: No
[2018-06-24] MEDS: NPH (HUMAN) 100 UNITS/ML INSULIN SQ SCH (18:15)
[2018-06-24] MEDS: VENLAFAXINE HCL XR 75 MG CAP PO SCH (21:06)
[2018-06-25] MEDS: HYDROMORPHONE ORAL 4 MG TAB PO PRN ×3 (03:02→18:04)
[2018-06-25] MEDS: Levofloxacin 750mg IV 750 MG/150 ML BAG IV SCH (03:02)
[2018-06-25 04:20] LABS: Absolute Lymphocytes (CBC) 1.5 K/uL (0.7-4.9); Absolute Monocytes 0.5 K/uL (0.1-1.3); Absolute Neutrophil 6.2 K/uL (1.8-8.0); Basophils % 0.5 % (0-1.3); Hematocrit 35.9 % (39.6-49.0); Lymphocytes % 17.1 % (15.3-44.8); MCH 26.3 pg (27.0-35.0); MCV 79.5 fL (80-100); MPV 6.8 fL (7.6-11.3); Monocytes % 6.1 % (3.3-12.3); RBC Red Blood Cell Count 4.51 M/uL (4.33-5.43)
[2018-06-25] MEDS ORDERED: NPH (HUMAN) 100 UNITS/ML INSULIN SQ SCH (08:00)
[2018-06-25 08:32] VITALS: O2SAT 98
[2018-06-25] MEDS: TIZANIDINE 4 MG TABLET PO SCH (08:58)
[2018-06-25] MEDS: VENLAFAXINE HCL XR 75 MG CAP PO SCH (08:58)
[2018-06-25 09:52] VITALS: TEMP 97
[2018-06-25] MEDS: ALPRAZOLAM 0.25 MG TABLET PO PRN (11:14)
[2018-06-25 12:48] VITALS: BP 123/55
[2018-06-25] MEDS: NPH (HUMAN) 100 UNITS/ML INSULIN SQ SCH (17:34)
[2018-06-25] MEDS ORDERED: PNEUMOCOCCAL VACCINE 0.5 ML IMVAC ONE (18:00)
--- NOTE | 2018-06-26 01:05 | DS ---
Date of Discharge: 06/25/2018 Discharge Diagnoses: Atelectasis versus pneumonia, possible withdrawal from narcotics which is given by the pain doctors, diabetes, high blood pressure, contractures of all joints, and chronic psoriati c changes. Hospital Course: The patient is morbidly obese gentleman, who is not able to ambulate any longer bec ause of contractures of his legs and joints after previous surgery years ago. He is 67 years old, mo rbidly obese, diabetic, not eating properly. He comes in with nausea and vomiting and abdominal pain . It turns out to have atelectasis on both sides, most likely because of inability to breathe deep e nough with obesity. He does not have any acute changes in abdominal CAT scan, but had a feeling he i s withdrawing from his drugs given by his pain doctors. Because of more restrictions, the pain docto rs are reducing the drug amount, which they have given him for long time. I will let them decide on the management of drug withdrawal at this point. Unfortunately, these doctors or PAs do not come to hospital to take care of their patient, so he will have to go to their office for followup. He is cu rrently in stable condition. He is on Levaquin for about 7 days just in case he has any conference f ixed, which we do not see actually anything, but some atelectasis. His prognosis remains fair. RYDER/TAMIKA Voice ID: [id number] Report ID: [id number]
== END 2018-06-25 19:38 | disposition home or self-care (01) | DRG 206 ==
LOC: ER 22:57 → ERHOLD 06-24 02:46 → 4TH 06-24 07:46
PROVIDERS: ADMIT Internal Medicine; ATTEND Internal Medicine
DX: J98.11 Atelectasis (principal); F19.939 Other psychoactive substance use, unspecified with withdrawal, unspecified; E11.9 Type 2 diabetes mellitus without complications; F41.9 Anxiety disorder, unspecified; I48.91 Unspecified atrial fibrillation; M19.90 Unspecified osteoarthritis, unspecified site; E11.65 Type 2 diabetes mellitus with hyperglycemia; I10 Essential (primary) hypertension; M24.50 Contracture, unspecified joint; E66.01 Morbid (severe) obesity due to excess calories; Z68.36 Body mass index [BMI] 36.0-36.9, adult; Z23 Encounter for immunization
CPT/HCPCS: 36415; 71045; 71275; 74177; 80048; 80076; 81003; 82550; 82553; 82805; 82962; 83735; 83880; 84484; 85025; 85610; 85730; 90670; 93005; 94760; 99285; G0009; J2405; J7030; Q9967

== ENCOUNTER 2018-11-16 17:16 | Observation (INO) | payer OTHER ==
--- NOTE | 2018-11-16 19:14 | RAD REPORT ---
EXAM DESCRIPTION: CT - Head C Spine Cap Wo Con - 11/16/2018 6:54 pm TECHNIQUE: Computed axial tomography of the head and cervical spine was obtained. Coronal and sagitt al reconstruction was performed Computed axial tomography of the chest, abdomen and pelvis was obtained. Contrast was not requested. All CT scans are performed using dose optimization technique as appropriate and may include automated exposure control or mA/KV adjustment according to patient size. CLINICAL HISTORY: Head and neck injury with chest and abdominal pain status post fall COMPARISON: CT 2014 and 2017 FINDINGS: An intracranial bleed is not seen. The ventricles are normal in caliber. An extra-axial fluid collection is not noted. . Fluid within the sinuses/mastoids is not seen. A cervical fracture is not seen. No dislocation is noted. Spondylosis C3-4 results in moderate to mar ked bilateral foraminal stenosis The evaluation of mediastinum, guillermo, vessels, solid organs and bowel are limited secondary to the lac k of contrast administration. A mediastinal hematoma is not noted. A pleural effusion is not seen. Mild right lung atelectasis. Non displaced fracture involves the right third lateral rib. Mildly displaced fracture involves the fourt h lateral right rib. Nondisplaced fracture involves the fourth right posterior rib. Nondisplaced frac ture involves the fifth posterior right rib. A minimally displaced fracture involves the right 6 post erolateral rib. Nondisplaced fracture involves the seventh right posterior-lateral rib. A pneumothora x is not seen The liver,spleen, pancreas, adrenals,kidneys and bladder do not demonstrate a traumatic injury. Ventral hernia contains fat. A neurostimulator device is in place IMPRESSION: 1. No acute intracranial abnormality is seen. 2. A cervical fracture is not visualized. 3. Nondisplaced and mildly displaced fractures involving the right third through seventh ribs 4. No acute traumatic injury involving the abdomen/pelvis seen
[2018-11-16 19:25] LABS: Protime INR 0.97
[2018-11-16 19:30] LABS: Absolute Monocytes 0.5 K/uL (0.1-1.3); Absolute Neutrophil 10.5 K/uL (1.8-8.0); Basophils % 0.4 % (0-1.3); Hematocrit 43.5 % (39.6-49.0); Lymphocytes % 8.5 % (15.3-44.8); Monocytes % 4.2 % (3.3-12.3); RBC Red Blood Cell Count 5.39 M/uL (4.33-5.43)
[2018-11-16 19:42] LABS: ALT/SGPT 50 U/L (12-78); AST/SGOT 27 U/L (15-37); Albumin 3.4 g/dL (3.4-5.0); Alkaline Phosphatase 144 U/L (45-117); BUN Blood Urea Nitrogen 9 mg/dL (7-18); Bicarbonate 30 mmol/L (21-32); Bilirubin Direct 0.1 mg/dL (0-0.2); Bilirubin Total 0.3 mg/dL (0.2-1.0); Glucose Level 354 mg/dL (74-106); NT PRO-BNP 129 pg/mL (<125); Sodium Level 136 mmol/L (136-145); Troponin (Emerg Dept Use Only) < 0.02 ng/mL (0.0-0.045)
[2018-11-16] MEDS ORDERED: HYDROMORPHONE HCL 1 MG/ML INJ ONE (19:42)
[2018-11-16] MEDS ORDERED: NA CHLORIDE 0.9% 1,000 ML ONE (19:42)
[2018-11-16] MEDS ORDERED: ONDANSETRON 4 MG/2 ML VIAL ONE (19:42)
--- NOTE | 2018-11-16 20:03 | ER ---
Nurse's Notes [facility] Name: Kiel Ngo Age: 68 yrs Sex: Male : 1950 Arrival Date: 11/16/2018 Time: 17:16 Bed 4 Private MD: Diagnosis: Multiple fractures of ribs, right side-6 posterior lateral ;Fall due to bumping against object;Obesity, unspecified;Type 1 diabetes mellitus Presentation: 11/16 17:16 Presenting complaint: EMS states: Slipped off foot of bed and landed on right side on hb ottoman, c/o right shoulder pain 07/22. Denies LOC. Transition of care: patient was not received from another setting of care. Onset of symptoms was November 16, 2018. Risk Assessment: Do you want to hurt yourself or someone else? Patient reports no desire to harm self or others. Initial Sepsis Screen: Does the patient meet any 2 criteria?. Care prior to arrival: None. 17:16 Method Of Arrival: EMS: [facility] 17:16 Acuity: JOZEF 3 hb Historical: - Allergies: 17:21 Demerol; hb 17:21 metformin; hb - Home Meds: 17:21 alprazolam 0.25 mg Oral tab [Active]; Ambien 10 mg Oral tab [Active]; Ambien 10 mg Oral hb tab 1 tab once daily [Active]; Benadryl 50mg Oral [Active]; Effexor XR 150 mg Oral cp24 [Active]; Humulin 70/30 55units Sub-Q at breakfast [Active]; Humulin 70/30 50 units Sub-Q at supper [Active]; hydromorphone 8 mg Oral tab 1 tab every 4 hours [Active]; Salicylic Acid/ Ceramide Cmb #1 [Active]; tizanidine 4 mg Oral cap [Active]; venlafaxine 150 mg Oral cp24 1 cap twice a day [Active]; - PMHx: 17:21 Atrial Fib; Diabetes - IDDM; Hypertension; Lymphadema; hb - PSHx: 17:21 Back surgery; Cholecystectomy; Knee surgery; Foot surgery; hb - Immunization history:: Adult Immunizations up to date. - Social history:: Smoking status: Patient/guardian denies using tobacco. - Ebola Screening: : No symptoms or risks identified at this time. Screenin:22 Abuse screen: Denies threats or abuse. Denies injuries from another. Nutritional hb screening: No deficits noted. Tuberculosis screening: No symptoms or risk factors identified. Fall Risk Total Chow Fall Scale indicates High Risk Score (45 or more points). Fall prevention measures have been instituted. Side Rails Up X 2 Frequent Obs/Assessments Occuring As available patient and family educated on Fall Prevention Program and Strategies. Assessment: 19:39 General: Appears uncomfortable, obese, Behavior is calm, cooperative. Pain: Complains lp1 of pain in right shoulder and chest wall Pain does not radiate. Pain currently is 10 out of 10 on a pain scale. Quality of pain is described as sharp, Pain began 1 hour ago. Is continuous. Neuro: Level of Consciousness is awake, alert, obeys commands, Oriented to person, place, time, situation. Cardiovascular: Denies chest pain, diaphoresis, fatigue, lightheadedness, nausea, palpitations, shortness of breath, syncope, vomiting, Heart tones S1 S2 present. Respiratory: Airway is patent Respiratory effort is even, unlabored, Respiratory pattern is regular, symmetrical, Breath sounds are clear bilaterally. Denies cough, shortness of breath. GI: Abdomen is non-distended, Bowel sounds present X 4 quads. : No signs and/or symptoms were reported regarding the genitourinary system. EENT: No signs and/or symptoms were reported regarding the EENT system. Derm: Skin is intact, is healthy with good turgor, Skin is dry, Skin is normal, Skin temperature is warm. Musculoskeletal: Circulation, motion, and sensation intact. Range of motion: limited in right shoulder. Vital Signs: 17:19 BP 158 / 100; Pulse 125; Resp 20; Temp 97.8; Pulse Ox 93% on 4 lpm NC; Pain 10/10; hb 19:30 BP 141 / 86; Pulse 117; Resp 13; Pulse Ox 97% on 4 lpm NC; lp1 19:39 BP 143 / 88; Pulse 115; Resp 14; Pulse Ox 99% on 4 lpm NC; Pain 10/10; lp1 20:55 BP 146 / 75; Pulse 110; Resp 15; Temp 97.6(O); Pulse Ox 97% on 4 lpm NC; Pain 9/10; ed1 ED Course: 17:16 Patient arrived in ED. hb 17:19 Triage completed. hb 17:19 Arm band placed on. hb 17:29 Stu Banerjee MD is Attending Physician. chetan 18:02 Juanita Mcguire, RN is Primary Nurse. iw 18:[address] via stretcher. jg6 18:54 CT Traumagram (Head C Spine CAP wo con) In Process Unspecified. EDMS 19:16 Initial lab(s) drawn, by me, sent to lab. Inserted saline lock: 20 gauge in left em1 antecubital area, using aseptic technique. Blood collected. 19:37 INCENTIVE SPIROMETRY Sent. lp1 19:39 Patient has correct armband on for positive identification. Bed in low position. Call lp1 light in reach. Side rails up X2. Adult w/ patient. vehicle monitor technician on. Pulse ox on. NIBP on. Warm blanket given. Head of bed elevated. 19:42 Primary Nurse role handed off by Juanita Mcguire, RN lp1 19:42 Sheryl Myles RN is Primary Nurse. lp1 20:01 Isai Snow MD is Hospitalizing Provider. chetna 20:47 Shoulder Right (2 View) XRAY In Process Unspecified. EDMS 22:43 No provider procedures requiring assistance completed. Patient admitted, IV remains in lp1 place. intact, No redness/swelling at site. Administered Medications: 19:37 Drug: NS 0.9% 500 ml Route: IV; Rate: bolus; Site: left antecubital; lp1 20:15 Follow up: IV Status: Completed infusion; IV Intake: 500ml lp1 19:37 Drug: NS 0.9% 1000 ml Route: IV; Rate: 125 ml/hr; Site: left antecubital; lp1 22:44 Follow up: IV Status: Infusion continued upon admission lp1 19:37 Drug: Dilaudid 1 mg Route: IVP; Site: left antecubital; lp1 21:07 Follow up: Response: No adverse reaction; Pain is decreased ed1 19:38 Drug: Zofran 4 mg Route: IVP; Site: left antecubital; lp1 21:07 Follow up: Response: No adverse reaction; Nausea is decreased ed1 21:05 Drug: Lovenox 40 mg Route: Sub-Q; Site: right lower abdomen; ed1 22:45 Follow up: Response: No adverse reaction lp1 21:06 Drug: Insulin Regular Human 8 units {Co-Signature: ak1 (Shelley Rogel RN).} Route: IVP; ed1 Site: left antecubital; 22:45 Follow up: Response: No adverse reaction lp1 21:06 Drug: LanTUS 40 units Route: Sub-Q; Site: left lower abdomen; ed1 22:45 Follow up: Response: No adverse reaction lp1 Intake: 20:15 IV: 500ml; Total: 500ml. lp1 Outcome: 20:02 Decision to Hospitalize by Provider. chetan 22:42 Admitted to Med/surg accompanied by tech, family with patient, via stretcher, room 213, lp1 with chart, Report called to Opal Bates LVN 22:42 Condition: stable 22:42 Discharge instructions given to patient, family, Instructed on the need for admit, Demonstrated understanding of instructions. 22:46 Patient left the ED. lp1 Signatures: Dispatcher [employer] EDStu Allen MD MD cha Williams, Irene, RN Saman Matamoros em1 Sheryl Myles RN RN ed1 Nicole Hammond RN RN lp1 Charisma George, Marti Pantoja RN j6 Shelley Rogel RN ak1
--- NOTE | 2018-11-16 20:04 | EDPHYS ---
Physician Documentation [facility] Name: Kiel Ngo Age: 68 yrs Sex: Male : 1950 Arrival Date: 11/16/2018 Time: 17:16 Bed 4 Private MD: ED Physician Stu Banerjee HPI: 11/16 17:55 This 68 yrs old Male presents to ER via EMS with complaints of Shoulder Pain. chetan 17:55 The patient or guardian complains of decreased range of motion, pain. chetan Historical: - Allergies: 17:21 Demerol; hb 17:21 metformin; hb - Home Meds: 17:21 alprazolam 0.25 mg Oral tab [Active]; Ambien 10 mg Oral tab [Active]; Ambien 10 mg Oral hb tab 1 tab once daily [Active]; Benadryl 50mg Oral [Active]; Effexor XR 150 mg Oral cp24 [Active]; Humulin 70/30 55units Sub-Q at breakfast [Active]; Humulin 70/30 50 units Sub-Q at supper [Active]; hydromorphone 8 mg Oral tab 1 tab every 4 hours [Active]; Salicylic Acid/ Ceramide Cmb #1 [Active]; tizanidine 4 mg Oral cap [Active]; venlafaxine 150 mg Oral cp24 1 cap twice a day [Active]; - PMHx: 17:21 Atrial Fib; Diabetes - IDDM; Hypertension; Lymphadema; hb - PSHx: 17:21 Back surgery; Cholecystectomy; Knee surgery; Foot surgery; hb - Immunization history:: Adult Immunizations up to date. - Social history:: Smoking status: Patient/guardian denies using tobacco. - Ebola Screening: : No symptoms or risks identified at this time. ROS: 17:55 Constitutional: Negative for fever, chills, and weight loss, Eyes: Negative for injury, chetan pain, redness, and discharge, ENT: Negative for injury, pain, and discharge, Neck: Negative for injury, pain, and swelling, Cardiovascular: Negative for chest pain, palpitations, and edema, Respiratory: Negative for shortness of breath, cough, wheezing, and pleuritic chest pain, Abdomen/GI: Negative for abdominal pain, nausea, vomiting, diarrhea, and constipation, : Negative for injury, bleeding, discharge, and swelling, Skin: Negative for injury, rash, and discoloration, Neuro: Negative for headache, weakness, numbness, tingling, and seizure, Psych: Negative for depression, anxiety, suicide ideation, homicidal ideation, and hallucinations, Allergy/Immunology: Negative for hives, rash, and allergies, Endocrine: Negative for neck swelling, polydipsia, polyuria, polyphagia, and marked weight changes, Hematologic/Lymphatic: Negative for swollen nodes, abnormal bleeding, and unusual bruising. 17:55 Back: Positive for decreased range of motion, pain at rest, pain with movement. Exam: 17:55 Constitutional: This is a well developed, well nourished patient who is awake, alert, chetan and in no acute distress. Head/Face: Normocephalic, atraumatic. Eyes: Pupils equal round and reactive to light, extra-ocular motions intact. Lids and lashes normal. Conjunctiva and sclera are non-icteric and not injected. Cornea within normal limits. Periorbital areas with no swelling, redness, or edema. ENT: Nares patent. No nasal discharge, no septal abnormalities noted. Tympanic membranes are normal and external auditory canals are clear. Oropharynx with no redness, swelling, or masses, exudates, or evidence of obstruction, uvula midline. Mucous membranes moist. Neck: Trachea midline, no thyromegaly or masses palpated, and no cervical lymphadenopathy. Supple, full range of motion without nuchal rigidity, or vertebral point tenderness. No Meningismus. Chest/axilla: Normal chest wall appearance and motion. Nontender with no deformity. No lesions are appreciated. Respiratory: Lungs have equal breath sounds bilaterally, clear to auscultation and percussion. No rales, rhonchi or wheezes noted. No increased work of breathing, no retractions or nasal flaring. Abdomen/GI: Soft, non-tender, with normal bowel sounds. No distension or tympany. No guarding or rebound. No evidence of tenderness throughout. Male : Normal genitalia with no discharge or lesions. Neuro: Awake and alert, GCS 15, oriented to person, place, time, and situation. Cranial nerves II-XII grossly intact. Motor strength 5/5 in all extremities. Sensory grossly intact. Cerebellar exam normal. Normal gait. Psych: Awake, alert, with orientation to person, place and time. Behavior, mood, and affect are within normal limits. 17:55 Cardiovascular: Rate: tachycardic, Rhythm: regular, Pulses: Pulses are 4+ in bilateral radial, brachial, femoral, popliteal, posterior tibial and and dorsalis pedis arteries.. Edema: is not appreciated, JVD: is not appreciated. Vital Signs: 17:19 BP 158 / 100; Pulse 125; Resp 20; Temp 97.8; Pulse Ox 93% on 4 lpm NC; Pain 10/10; hb 19:30 BP 141 / 86; Pulse 117; Resp 13; Pulse Ox 97% on 4 lpm NC; lp1 19:39 BP 143 / 88; Pulse 115; Resp 14; Pulse Ox 99% on 4 lpm NC; Pain 10/10; lp1 20:55 BP 146 / 75; Pulse 110; Resp 15; Temp 97.6(O); Pulse Ox 97% on 4 lpm NC; Pain 9/10; ed1 MDM: 17:29 Patient medically screened. [facility] 17:57 Data reviewed: vital signs, nurses notes, lab test result(s), EKG, radiologic studies, chetan CT scan, plain films. 11/16 17:54 Order name: Basic Metabolic Panel; Complete Time: 19:51 chetan 11/16 17:54 Order name: CBC with Diff chetan 11/16 17:54 Order name: LFT's; Complete Time: 19:51 chetan 11/16 17:54 Order name: Magnesium; Complete Time: 19:51 chetan 11/16 17:54 Order name: NT PRO-BNP; Complete Time: 19:51 chetan 11/16 17:54 Order name: PT-INR; Complete Time: 19:51 chetan 11/16 17:54 Order name: Troponin (emerg Dept Use Only); Complete Time: 19:51 chetan 11/16 17:57 Order name: Lipase; Complete Time: 19:51 chetan 11/16 20:13 Order name: Basic Metabolic Panel EDMS 11/16 20:13 Order name: Basic Metabolic Panel EDMS 11/16 20:13 Order name: CBC with Automated Diff EDMS 11/16 20:13 Order name: CBC with Automated Diff EDMS 11/16 20:13 Order name: Troponin I EDMS 11/16 20:13 Order name: Troponin I EDMS 11/16 17:54 Order name: CT Traumagram (Head C Spine CAP wo con); Complete Time: 19:23 [facility] 11/16 19:29 Order name: INCENTIVE SPIROMETRY [facility] 11/16 19:51 Order name: Shoulder Right (2 View) XRAY [facility] 11/16 20:13 Order name: Troponin I EDCT 11/16 20:13 Order name: Chest Single View EDCT 11/16 20:13 Order name: Chest Single View EDCT 11/16 20:16 Order name: Urine Dipstick--Ancillary (enter results) [facility] 11/16 22:16 Order name: CBC Smear Scan EDCT 11/16 17:54 Order name: EKG; Complete Time: 17:55 [facility] 11/16 17:54 Order name: Cardiac monitoring; Complete Time: 19:29 [facility] 11/16 17:54 Order name: EKG - Nurse/Tech; Complete Time: 19:29 [facility] 11/16 17:54 Order name: IV Saline Lock; Complete Time: 19:17 [facility] 11/16 17:54 Order name: Labs collected and sent; Complete Time: 19:17 [facility] 11/16 17:54 Order name: O2 Per Protocol; Complete Time: 19:17 [facility] 11/16 17:54 Order name: O2 Sat Monitoring; Complete Time: 19:17 [facility] 11/16 20:13 Order name: Consistent Carb (ADA) [address] EDCT 11/16 20:13 Order name: EKG Electrocardiogram EDCT 11/16 20:13 Order name: EKG Electrocardiogram EDCT 11/16 20:13 Order name: EKG Electrocardiogram EDCT 11/16 20:13 Order name: EKG Electrocardiogram EDCT Administered Medications: 19:37 Drug: NS 0.9% 500 ml Route: IV; Rate: bolus; Site: left antecubital; lp1 20:15 Follow up: IV Status: Completed infusion; IV Intake: 500ml lp1 19:37 Drug: NS 0.9% 1000 ml Route: IV; Rate: 125 ml/hr; Site: left antecubital; lp1 22:44 Follow up: IV Status: Infusion continued upon admission lp1 19:37 Drug: Dilaudid 1 mg Route: IVP; Site: left antecubital; lp1 21:07 Follow up: Response: No adverse reaction; Pain is decreased ed1 19:38 Drug: Zofran 4 mg Route: IVP; Site: left antecubital; lp1 21:07 Follow up: Response: No adverse reaction; Nausea is decreased ed1 21:05 Drug: Lovenox 40 mg Route: Sub-Q; Site: right lower abdomen; ed1 22:45 Follow up: Response: No adverse reaction lp1 21:06 Drug: Insulin Regular Human 8 units {Co-Signature: ak1 (Shelley Rogel RN).} Route: IVP; ed1 Site: left antecubital; 22:45 Follow up: Response: No adverse reaction lp1 21:06 Drug: LanTUS 40 units Route: Sub-Q; Site: left lower abdomen; ed1 22:45 Follow up: Response: No adverse reaction lp1 Disposition: 11/16/18 20:02 Hospitalization ordered by Isai Snow for Observation. Preliminary diagnosis are Multiple fractures of ribs, right side - 6 posterior lateral , Fall due to bumping against object, Obesity, unspecified, Type 1 diabetes mellitus. - Bed requested for Telemetry/MedSurg (observation). - Status is Observation. lp1 - Condition is Fair. - Problem is new. - Symptoms have improved. UTI on Admission? No Signatures: Dispatcher [employer] EDCT Sandy Ngo RN RN mw Anderson, Corey, MD MD cha Riggs, Erika, RN RN ed1 Nicole Hammond RN RN lp1 Charisma George RN RN Shelley Rogel RN ak1 Corrections: (The following items were deleted from the chart) 19:17 17:55 Chest Single View+RAD.RAD.[email or web address] ordered. EDCT EDCT 20:34 20:02 Hospitalization Ordered by Isai Snow MD for Observation. Preliminary diagnosis mw is Multiple fractures of ribs, right side - 6 posterior lateral ; Fall due to bumping against object; Obesity, unspecified; Type 1 diabetes mellitus. Bed requested for Telemetry/MedSurg (observation). Status is Observation. Condition is Fair. Problem is new. Symptoms have improved. UTI on Admission? No. chetan 21:24 20:34 11/16/2018 20:02 Hospitalization Ordered by Isai Snow MD for Observation. mw Preliminary diagnosis is Multiple fractures of ribs, right side - 6 posterior lateral ; Fall due to bumping against object; Obesity, unspecified; Type 1 diabetes mellitus. Bed requested for Telemetry/MedSurg (observation). Status is Observation. Condition is Fair. Problem is new. Symptoms have improved. UTI on Admission? No. mw 22:46 21:24 11/16/2018 20:02 Hospitalization Ordered by Isai Snow MD for Observation. lp1 Preliminary diagnosis is Multiple fractures of ribs, right side - 6 posterior lateral ; Fall due to bumping against object; Obesity, unspecified; Type 1 diabetes mellitus. Bed requested for Telemetry/MedSurg (observation). Status is Observation. Condition is Fair. Problem is new. Symptoms have improved. UTI on Admission? No. mw
[2018-11-16] MEDS ORDERED: ACETAMINOPHEN 500 MG TAB PO PRN (20:07)
[2018-11-16] MEDS ORDERED: GLUCAGON 1 MG/VIAL IM PRN (20:10)
[2018-11-16] MEDS ORDERED: D50W 25 GM/50 ML SYRINGE IV PRN (20:10)
--- NOTE | 2018-11-16 20:55 | RAD REPORT ---
EXAM DESCRIPTION: RAD - Shoulder Right 2 View - 11/16/2018 8:46 pm CLINICAL HISTORY: Right shoulder pain FINDINGS: No fracture is seen. The evaluation of the acromioclavicular joint is limited secondary to difficulty with patient positioning. Marked osteoarthritis involves the glenohumeral joint The previously described right rib fractures are again noted
[2018-11-16] MEDS: FAMOTIDINE 20 MG/2 ML VIAL IV SCH (21:00)
[2018-11-16] MEDS ORDERED: INSULIN GLARGINE 100 UNITS/ML SQ ONE (21:00)
[2018-11-16] MEDS ORDERED: ENOXAPARIN 40 MG/0.4 ML SQ ONE (21:10)
[2018-11-16] MEDS ORDERED: INSULIN -REGULAR HUMAN 50 UNIT/0.5 ML ML ONE (21:10)
[2018-11-16 21:24] LABS: Urine Blood NEGATIVE (NEG); Urine Glucose 2+ (NEG); Urine Protein NEGATIVE (NEG); Urine Specific Gravity 1.015 (1.005-1.030)
[2018-11-16 22:15] LABS: Blood Morphology Comment NOT SEEN (NOT SEEN); Platelet Estimate ADEQ; Urine White Blood Cell Casts OK
[2018-11-16 22:51] VITALS: BMI 39.4
[2018-11-16] MEDS: INSULIN -REGULAR HUMAN 50 UNIT/0.5 ML ML SQ SCH (23:49)
[2018-11-17] MEDS: MORPHINE 4 MG/ML SYR IV PRN ×4 (00:13→15:07)
[2018-11-17] MEDS: ONDANSETRON 4 MG/2 ML VIAL IV PRN ×2 (00:18→06:50)
[2018-11-17] MEDS ORDERED: DIAZEPAM 10 MG/2 ML INJ SYRINGE ONE (05:03)
[2018-11-17] MEDS: DIAZEPAM 10 MG/2 ML INJ SYRINGE IV SCH ×3 (05:32→13:07)
[2018-11-17 06:31] LABS: Absolute Lymphocytes (CBC) 1.3 K/uL (0.7-4.9); Absolute Monocytes 0.6 K/uL (0.1-1.3); Absolute Neutrophil 7.8 K/uL (1.8-8.0); Basophils % 0.4 % (0-1.3); Eosinophils % 0.7 % (0-4.4); Hematocrit 42.1 % (39.6-49.0); Lymphocytes % 13.4 % (15.3-44.8); MPV 6.9 fL (7.6-11.3); Monocytes % 5.7 % (3.3-12.3); RBC Red Blood Cell Count 5.26 M/uL (4.33-5.43)
[2018-11-17 06:44] LABS: Potassium 4.4 mmol/L (3.5-5.1)
[2018-11-17] MEDS: INSULIN -REGULAR HUMAN 50 UNIT/0.5 ML ML SQ SCH ×2 (07:30→11:30)
--- NOTE | 2018-11-17 07:39 | EKG ---
Test Date: 2018-11-16 Test Time: 19:22:45 Ice Cream Scooper: MIHAI MEASUREMENT RESULTS: Intervals: Rate: 117 MD: 160 QRSD: 88 QT: 328 QTc: 457 [place]: P: 63 MD: 160 QRS: 42 T: 36 INTERPRETIVE STATEMENTS: Sinus tachycardia Otherwise normal ECG Compared to ECG 06/23/2018 23:16:55 No significant changes Electronically Signed On 11-17-18 07:28:03 LIGHT TRUCK DRIVER by Jonathan Huddleston
--- NOTE | 2018-11-17 08:37 | RAD REPORT ---
EXAM DESCRIPTION: Kiaht Single View11/17/2018 6:44 am CLINICAL HISTORY: Chest pain COMPARISON: November 16 CAT scan FINDINGS: Multiple right rib fractures are present. A pneumothorax is not seen. Minimal right basilar atelectasis is suspected. A significant pleural effusion is not noted. Heart is borderline enlarged
[2018-11-17 08:58] VITALS: O2SAT 96
[2018-11-17] MEDS ORDERED: ASPIRIN EC 81 MG TAB PO SCH (09:00)
[2018-11-17] MEDS: FAMOTIDINE 20 MG/2 ML VIAL IV SCH (09:02)
[2018-11-17 09:47] VITALS: BP 155/84; TEMP 98
--- NOTE | 2018-11-17 12:15 | EKG ---
Test Date: 2018-11-17 Test Time: 09:30:47 Schedule Hanger: VON MEASUREMENT RESULTS: Intervals: Rate: 93 WV: 170 QRSD: 90 QT: 388 QTc: 482 [place]: P: 51 WV: 170 QRS: 35 T: 40 INTERPRETIVE STATEMENTS: Normal sinus rhythm Prolonged QT Abnormal ECG Compared to ECG 11/16/2018 19:22:45 Prolonged QT interval now present Sinus tachycardia no longer present Electronically Signed On 11-17-18 12:14:49 GREASE RENDERER by Jonathan Huddleston
--- NOTE | 2018-11-17 12:56 | P.SSS ---
Patient History Date of Service: 11/17/18 Reason for admission: FELL OFF THE COMMODE History of Present Illness: MR. KELSEY IS A LARGE MAN WHO HAS BEEN DISABLED WITH COMPLICATED KNEE SURGERY YEARS AGO, GOT OFF COMMODE AND FELL TO HIT THE SIDE OF A CABINET, BROKE 4 RIBS AND IS NOW IN HOSPITAL FOR OBS. HE HAD MULTIPLE CT SCANS DON BY ER. Allergies meperidine HCl [From Demerol] Allergy (Severe, Verified 11/17/18 00:49) Anaphylaxis metformin Allergy (Intermediate, Verified 11/17/18 00:49) Anaphylaxis Clindamycin Allergy (Uncoded 11/17/18 00:49) Unknown Home Medications: Hum Insulin NPH/Reg Insulin Hm [Humulin 70-30 Pen] 55 units SQ DAILY AT SUPPER 10/04/13 Hum Insulin NPH/Reg Insulin Hm [Humulin 70-30 Pen] 60 units SQ BREAKFAST Promethazine HCl 25 mg PO Q6HP PRN 10/04/13 Venlafaxine HCl [Effexor XR] 150 mg PO BID 10/04/13 Hydromorphone [Dilaudid*] 8 mg PO Q4HP PRN 10/30/14 Diphenhydramine [Benadryl*] 50 mg PO DAILY PRN 06/12/18 Salicylic Acid/Ceramide Cmb #1 [Salicylic Acid 6% Cream Kit] 1 each TP Q6H PRN 06/12/18 Tizanidine [Zanaflex*] 4 mg PO BID 06/12/18 ALPRAZolam [Alprazolam] 0.25 mg PO DAILY PRN #30 tablet 06/13/18 Zolpidem Tartrate [Ambien*] 10 mg PO BEDTIME PRN PRN #30 tablet 06/13/18 Albuterol Sulfate [Proair Hfa] 8.5 gm IH QID PRN 11/17/18 - Past Medical/Surgical History Has patient received pneumonia vaccine in the past: Yes Diabetic: Yes -: IDDM -: ANXIETY -: AFIB -: Osteoarthritis -: Pancreatitis -: Lymphedema -: 3 foot surgeries -: PATRICIA knee surgery -: R shoulder surgery -: 3 back surgeries -: CHOLECYSTECTOMY - Family History Father -: Other (see notes) Notes: dementia Mother -: Heart disease - Social History Smoking Status: Never smoker Alcohol use: No CD- Drugs: No Caffeine use: Yes Place of Residence: Home Review of Systems 10-point ROS is otherwise unremarkable Respiratory: Pleuritic Pain Physical Examination - Vital Signs Temperature: 98.0 F Blood Pressure: 155/84 Pulse: 112 Respirations: 17 Pulse Ox (%): 96 - Physical Exam General: Alert, Moderate distress, Obese HEENT: Atraumatic, PERRLA, Mucous membr. moist/pink, EOMI, Sclerae nonicteric Neck: Supple, 2+ carotid pulse no bruit, No LAD, Without JVD or thyroid abnormality Respiratory: Clear to auscultation bilaterally, Normal air movement Cardiovascular: Regular rate/rhythm, Normal S1 S2 Gastrointestinal: Normal bowel sounds, No tenderness Musculoskeletal: No tenderness Integumentary: No rashes Neurological: Normal speech, Normal tone (NOT WALKED FOR YEARS.) Lymphatics: No axilla or inguinal lymphadenopathy - Studies Laboratory Data (last 24 hrs) 11/16/18 19:00: Lipase 78 11/16/18 19:00: PT 11.5, INR 0.97 11/16/18 19:00: WBC 12.3 H, Hgb 14.1, Hct 43.5, Plt Count 356 11/16/18 19:00: Sodium 136, Potassium 4.0, BUN 9, Creatinine 1.01, Glucose 354 H , Magnesium 2.0, Total Bilirubin 0.3, AST 27, ALT 50, Alkaline Phosphatase 144 H - Diagnosis (Problem(s)) (1) Right rib fracture Current Visit: Yes Status: Acute Plan: MULTIPLE HE IS ALREADY A DR DURBIN PATIENT FOR NARCOTICS. NO CHANGES IN MEDS. Qualifiers: Encounter type: initial encounter (2) Diabetes mellitus Onset Date: 10/31/14 Current Visit: No Status: Chronic Plan: NOT COMPLIANT ABOUT DIET. POOR CONDITION AND WILL HAVE DIABETIC COMPLICATIONS HE IS MORBIDLY OBESE AND NOT WATCHING DIET. Qualifiers: Diabetes mellitus type: type 2 - Disposition Disposition: ROUTINE DISCHARGE Condition: FAIR Patient Discharge Instructions: TAKE THE PAIN PILLS YOU HAVE FROM DR. DURBIN. IT WILL TAKE TWO MONTHS TO HEAL THE BROKEN RIBS. I WILL SEE YOU IN OFFICE IN A WEEK. MUST LOSE WEIGHT. EAT LESS, EAT ORGANIC, AVOID ALL FRIED FOOD, CHEESE, BUTTTER, JUNK FOOD, CHIPS, TORTILLAS, BREAD, PASTA ETC. Diet: ADA
[2018-11-17] MEDS ORDERED: ENOXAPARIN 40 MG/0.4 ML SQ SCH (17:00)
[2018-11-17] MEDS ORDERED: FAMOTIDINE 20 MG TAB PO SCH (21:00)
== END 2018-11-17 15:24 | disposition home or self-care (01) ==
LOC: ER 17:16 → ERHOLD 20:06 → 2ND 21:41
PROVIDERS: ADMIT Internal Medicine; ATTEND Internal Medicine
DX: S22.41XA Multiple fractures of ribs, right side, initial encounter for closed fracture (principal); W18.12XA Fall from or off toilet with subsequent striking against object, initial encounter; Y92.002 Bathroom of unspecified non-institutional (private) residence as the place of occurrence of the external cause; E11.9 Type 2 diabetes mellitus without complications; F41.9 Anxiety disorder, unspecified; I48.91 Unspecified atrial fibrillation; M19.90 Unspecified osteoarthritis, unspecified site
CPT/HCPCS: 36415; 70450; 71045; 71250; 72125; 73030; 80048 ×2; 80076; 81003; 82962 ×3; 83690; 83735; 83880; 84484 ×3; 85025 ×2; 85610; 93005 ×2; 96361; 96372; 96374; 96375; 99285; G0378; G0379; J1170; J1650; J2405 ×3; J3360 ×2; J7030

== ENCOUNTER 2019-04-05 14:49 | Emergency (ER) | payer OTHER ==
[2019-04-05] MEDS ORDERED: ONDANSETRON 4 MG/2 ML VIAL ONE (15:31)
[2019-04-05 15:46] LABS: Basophils % 0.6 % (0-1.3); Eosinophils % 0.9 % (0-4.4); Hematocrit 46.1 % (39.6-49.0); Lymphocytes % 10.5 % (15.3-44.8); MPV 7.1 fL (7.6-11.3); Monocytes % 3.6 % (3.3-12.3); RBC Red Blood Cell Count 5.67 M/uL (4.33-5.43)
[2019-04-05] MEDS ORDERED: MORPHINE 4 MG/ML SYR ONE (16:29)
[2019-04-05] MEDS ORDERED: NA CHLORIDE 0.9% 1,000 ML ONE (16:29)
[2019-04-05 16:34] LABS: Albumin 3.6 g/dL (3.4-5.0); Bilirubin Direct 0.2 mg/dL (0-0.2); Bilirubin Total 0.5 mg/dL (0.2-1.0); Potassium 4.2 mmol/L (3.5-5.1); Protein, Total 8.5 g/dL (6.4-8.2)
[2019-04-05] MEDS ORDERED: HYDROMORPHONE HCL 1 MG/ML INJ ONE (17:35)
--- NOTE | 2019-04-05 17:54 | EDPHYS ---
Physician Documentation [facility] Name: Kiel Ngo Age: 68 yrs Sex: Male : 1950 Arrival Date: 04/05/2019 Time: 14:56 Bed 17 Private MD: ED Physician Calvin Wright HPI: 04/05 21:09 This 68 yrs old Male presents to ER via EMS with complaints of kdr Nausea/Vomiting - Pain pump empty - Opiod withdrawl. 21:09 The patient presents to the emergency department with nausea, that is mild, vomiting, kdr that is intermittent. Onset: The symptoms/episode began/occurred 4 day(s) ago. Possible causes: Pain pump empty. The symptoms are aggravated by nothing. The symptoms are alleviated by nothing. Associated signs and symptoms: Pertinent positives: nausea, vomiting. Severity of symptoms: At their worst the symptoms were mild moderate just prior to arrival, in the emergency department the symptoms are unchanged. The patient has experienced similar episodes in the past, a few times. The patient has not recently seen a physician. . Historical: - Allergies: 15:10 Demerol; ph 15:10 metformin; ph - Home Meds: 15:10 alprazolam 0.25 mg Oral tab [Active]; Benadryl 50mg Oral [Active]; Ambien 10 mg Oral ph tab 1 tab once daily [Active]; Effexor XR 150 mg Oral cp24 [Active]; Humulin 70/30 55units Sub-Q at breakfast [Active]; Humulin 70/30 50 units Sub-Q at supper [Active]; hydromorphone 8 mg Oral tab 1 tab every 4 hours [Active]; Salicylic Acid/ Ceramide Cmb #1 [Active]; tizanidine 4 mg Oral cap [Active]; venlafaxine 150 mg Oral cp24 1 cap twice a day [Active]; - PMHx: 15:10 Atrial Fib; Diabetes - IDDM; Hypertension; Lymphadema; ph - PSHx: 15:10 Back surgery; Cholecystectomy; Knee surgery; Foot surgery; ph - Immunization history:: Adult Immunizations unknown. - Social history:: Smoking status: Patient/guardian denies using tobacco. - Ebola Screening: : No symptoms or risks identified at this time. ROS: 21:09 Constitutional: Negative for fever, chills, and weight loss, Eyes: Negative for injury, kdr pain, redness, and discharge, Neck: Negative for injury, pain, and swelling, Respiratory: Negative for shortness of breath, cough, wheezing, and pleuritic chest pain, Abdomen/GI: Negative for abdominal pain, nausea, vomiting, diarrhea, and constipation, Back: Negative for injury and pain, : Negative for injury, bleeding, discharge, and swelling, MS/Extremity: Negative for injury and deformity, Skin: Negative for injury, rash, and discoloration, Neuro: Negative for headache, weakness, numbness, tingling, and seizure activity. Psych: Negative for depression, anxiety, suicide ideation, homicidal ideation, and hallucinations, Allergy/Immunology: Negative for hives, rash, and allergies, Endocrine: Negative for neck swelling, polydipsia, polyuria, polyphagia, and marked weight changes. 21:09 Cardiovascular: Positive for Negative for chest pain. Exam: 21:09 Constitutional: This is a well developed, well nourished patient who is awake, alert, kdr and in no acute distress. Head/Face: Normocephalic, atraumatic. Eyes: Pupils equal round and reactive to light, extra-ocular motions intact. Lids and lashes normal. Conjunctiva and sclera are non-icteric and not injected. Cornea within normal limits. Periorbital areas with no swelling, redness, or edema. Neck: Trachea midline, no thyromegaly or masses palpated, and no cervical lymphadenopathy. Supple, full range of motion without nuchal rigidity, or vertebral point tenderness. No Meningismus. Chest/axilla: Normal chest wall appearance and motion. Nontender with no deformity. No lesions are appreciated. Cardiovascular: Regular rate and rhythm with a normal S1 and S2. No gallops, murmurs, or rubs. Normal PMI, no JVD. No pulse deficits. Respiratory: Lungs have equal breath sounds bilaterally, clear to auscultation and percussion. No rales, rhonchi or wheezes noted. No increased work of breathing, no retractions or nasal flaring. Abdomen/GI: Soft, non-tender, with normal bowel sounds. No distension or tympany. No guarding or rebound. No evidence of tenderness throughout. Back: No spinal tenderness. No costovertebral tenderness. Full range of motion. Skin: Warm, dry with normal turgor. Normal color with no rashes, no lesions, and no evidence of cellulitis. MS/ Extremity: Pulses equal, no cyanosis. Neurovascular intact. Limited range of motion. Neuro: Awake and alert, GCS 15, oriented to person, place, time, and situation. Cranial nerves II-XII grossly intact. Motor strength 5/5 in all extremities. Sensory grossly intact. Cerebellar exam normal. Normal gait. Psych: Awake, alert, with orientation to person, place and time. Behavior, mood, and affect are within normal limits. Vital Signs: 15:04 BP 160 / 95; Pulse 125; Resp 20; Temp 97.5; Pulse Ox 100% on 4 lpm NC; Weight 129.27 ph kg; Height 5 ft. 6 in. (167.64 cm); 16:19 BP 167 / 78; Pulse 112; Resp 18; Temp 97.9(O); Pulse Ox 100% on 4 lpm NC; ca1 17:41 BP 172 / 97; Pulse 100; Resp 14; Temp 98.3(O); Pulse Ox 100% on 4 lpm NC; mh5 15:04 Body Mass Index 46.00 (129.27 kg, 167.64 cm) ph 15:04 pt on continuous o2 at 4 LPM ph MDM: 17:53 Patient medically screened. kdr 21:09 Data reviewed: vital signs, nurses notes, lab test result(s), radiologic studies. kdr Counseling: I had a detailed discussion with the patient and/or guardian regarding: the historical points, exam findings, and any diagnostic results supporting the discharge/admit diagnosis, lab results, radiology results, the need for outpatient follow up. ED course: Dr. Bruce came to the ED and refilled his pain pump. The patient was feeling much better on discharge from the ED. 04/05 15:06 Order name: Basic Metabolic Panel [facility] 04/05 15:06 Order name: CBC with Diff; Complete Time: 16:21 [facility] 04/05 15:06 Order name: Creatinine for Radiology [facility] 04/05 15:06 Order name: Hepatic Function [facility] 04/05 15:06 Order name: Lipase [facility] 04/05 16:21 Order name: Glucose, Ancillary Testing [facility] 04/05 15:06 Order name: IV Saline Lock; Complete Time: 15:25 kdr 04/05 15:06 Order name: Labs collected and sent; Complete Time: 15: kdr 04/05 15:54 Order name: Labs - recollect needed; Complete Time: 16:10 bd Administered Medications: 15:20 Drug: Zofran 4 mg Route: IVP; Site: right antecubital; ca1 16:11 Follow up: Response: No adverse reaction; Nausea is decreased ca1 17:04 Follow up: Response: No adverse reaction; Nausea is decreased ca1 16:10 Drug: NS 0.9% 500 ml Volume: 500 ml; Route: IV; Rate: 1 bolus; Site: right antecubital; ca1 17:00 Follow up: IV Status: Completed infusion ca1 16:11 Drug: morphine 4 mg Route: IVP; Site: right antecubital; ca1 18:14 Follow up: Response: No adverse reaction; Pain is decreased ca1 17:24 Not Given (Duplicate Order): Dilaudid 2 mg IVP once ca1 17:25 Drug: NS 0.9% 1000 ml Route: IV; Rate: 125 ml/hr; Site: right antecubital; ca1 18:09 Follow up: Response: No adverse reaction; IV Status: Pt discharged ca1 17:25 Drug: Dilaudid 1 mg Route: IVP; Site: right antecubital; ca1 18:14 Follow up: Response: No adverse reaction; Pain is decreased ca1 Disposition: 04/05/19 17:53 Discharged to Home. Impression: Chronic pain, not elsewhere classified, Chronic pain syndrome. - Condition is Stable. - Medication Reconciliation Form, Thank You Letter, Prescription Opioid Use form. - Follow up: Private Physician; When: 2 - 3 days; Reason: If symptoms return, Further diagnostic work-up, Recheck today's complaints, Continuance of care, Re-evaluation by your physician. - Problem is new. - Symptoms have improved. Signatures: Dispatcher [employer] EDMS Karin Solorzano Kevin, MD MD [facility] Prachi Nguyen RN RN Corie Davila RN RN ca1 Corrections: (The following items were deleted from the chart) 18:24 17:53 04/05/2019 17:53 Discharged to Home. Impression: Chronic pain, not elsewhere ca1 classified; Chronic pain syndrome. Condition is Stable. Forms are Medication Reconciliation Form, Thank You Letter, Antibiotic Education, Prescription Opioid Use. Follow up: Private Physician; When: 2 - 3 days; Reason: If symptoms return, Further diagnostic work-up, Recheck today's complaints, Continuance of care, Re-evaluation by your physician. Problem is new. Symptoms have improved. kdr
--- NOTE | 2019-04-05 17:54 | ER ---
Nurse's Notes [facility] Name: Kiel Ngo Age: 68 yrs Sex: Male : 1950 Arrival Date: 04/05/2019 Time: 14:56 Bed 17 Private MD: Diagnosis: Chronic pain, not elsewhere classified;Chronic pain syndrome Presentation: 04/05 14:57 Presenting complaint: EMS states: Pt hx of chronic pain and has morphine pain pump, ph pump ran out on Friday, has appointment w/ Priscila on Fri but is having withdrawal symptoms, c/o nausea and vomiting, BP 180s/100s and HR 120s. Transition of care: patient was not received from another setting of care. Onset of symptoms was April 05, 2019. Risk Assessment: Do you want to hurt yourself or someone else? Patient reports no desire to harm self or others. Initial Sepsis Screen: Does the patient meet any 2 criteria? No. Patient's initial sepsis screen is negative. Does the patient have a suspected source of infection? No. Patient's initial sepsis screen is negative. Care prior to arrival: None. 14:57 Method Of Arrival: EMS: [facility] ph 14:57 Acuity: JOZEF 2 ph Historical: - Allergies: 15:10 Demerol; ph 15:10 metformin; ph - Home Meds: 15:10 alprazolam 0.25 mg Oral tab [Active]; Benadryl 50mg Oral [Active]; Ambien 10 mg Oral ph tab 1 tab once daily [Active]; Effexor XR 150 mg Oral cp24 [Active]; Humulin 70/30 55units Sub-Q at breakfast [Active]; Humulin 70/30 50 units Sub-Q at supper [Active]; hydromorphone 8 mg Oral tab 1 tab every 4 hours [Active]; Salicylic Acid/ Ceramide Cmb #1 [Active]; tizanidine 4 mg Oral cap [Active]; venlafaxine 150 mg Oral cp24 1 cap twice a day [Active]; - PMHx: 15:10 Atrial Fib; Diabetes - IDDM; Hypertension; Lymphadema; ph - PSHx: 15:10 Back surgery; Cholecystectomy; Knee surgery; Foot surgery; ph - Immunization history:: Adult Immunizations unknown. - Social history:: Smoking status: Patient/guardian denies using tobacco. - Ebola Screening: : No symptoms or risks identified at this time. Screenin:26 Abuse screen: Denies threats or abuse. Denies injuries from another. Nutritional ca1 screening: No deficits noted. Tuberculosis screening: No symptoms or risk factors identified. Fall Risk IV access (20 points). Ambulatory Aid- None/Bed Rest/Nurse Assist (0 pts). Gait- Normal/Bed Rest/Wheelchair (0 pts). Assessment: 15:26 General: Appears in no apparent distress. comfortable, Behavior is calm, cooperative, ca1 appropriate for age. Pain: Complains of pain in right leg Pain does not radiate. Pain currently is 8 out of 10 on a pain scale. Is chronic. Neuro: Level of Consciousness is awake, alert, obeys commands, Oriented to person, place, time, situation. Cardiovascular: Heart tones S1 S2 present Capillary refill < 3 seconds Patient's skin is warm and dry. Respiratory: Airway is patent Respiratory effort is even, unlabored, Respiratory pattern is regular, symmetrical, Breath sounds are clear bilaterally. GI: Abdomen is round non-distended, Bowel sounds present X 4 quads. Abd is soft and non tender X 4 quads. Reports nausea, vomiting, since 1100 today. : No deficits noted. No signs and/or symptoms were reported regarding the genitourinary system. EENT: No deficits noted. No signs and/or symptoms were reported regarding the EENT system. Derm: Skin is fragile, is thin, Skin is pink, warm \T\ dry. Musculoskeletal: Circulation, motion, and sensation intact. Capillary refill < 3 seconds, Range of motion: limited in left hip, left knee, right hip and right knee. 16:19 Reassessment: Patient appears in no apparent distress at this time. Patient and/or ca1 family updated on plan of care and expected duration. Pain level reassessed. Patient is alert, oriented x 3, equal unlabored respirations, skin warm/dry/pink. 17:10 Reassessment: Patient appears in no apparent distress at this time. Patient and/or ca1 family updated on plan of care and expected duration. Pain level reassessed. Patient is alert, oriented x 3, equal unlabored respirations, skin warm/dry/pink. 18:03 Reassessment: Patient appears in no apparent distress at this time. Patient is alert, ca1 oriented x 3, equal unlabored respirations, skin warm/dry/pink. Significant other at bedside. 18:07 Reassessment: Pt requested for Taxi for transport to home. Informed CN and Ms. Merida. ca1 Awaiting Taxi. 18:23 Reassessment: Assisted pt to taxi via wheelchair with Sathish. ca1 Vital Signs: 15:04 BP 160 / 95; Pulse 125; Resp 20; Temp 97.5; Pulse Ox 100% on 4 lpm NC; Weight 129.27 ph kg; Height 5 ft. 6 in. (167.64 cm); 16:19 BP 167 / 78; Pulse 112; Resp 18; Temp 97.9(O); Pulse Ox 100% on 4 lpm NC; ca1 17:41 BP 172 / 97; Pulse 100; Resp 14; Temp 98.3(O); Pulse Ox 100% on 4 lpm NC; mh5 15:04 Body Mass Index 46.00 (129.27 kg, 167.64 cm) ph 15:04 pt on continuous o2 at 4 LPM ph ED Course: 14:56 Patient arrived in ED. ph 15:04 Triage completed. ph 15:05 Calvin Wright MD is Attending Physician. kdr 15:06 Corie Davila RN is Primary Nurse. ca1 15:15 Arm band placed on Patient placed in an exam room, on a stretcher, on oxygen, on ph vehicle monitor technician, on pulse oximetry. 15:20 No provider procedures requiring assistance completed. Inserted saline lock: 20 gauge ca1 in right antecubital area, using aseptic technique. Blood collected. 15:26 Patient has correct armband on for positive identification. Placed in gown. Bed in low ca1 position. Call light in reach. Side rails up X2. vehicle monitor technician on. Pulse ox on. NIBP on. Warm blanket given. 16:04 Lab(s) recollected, by me, sent to lab. ca1 18:08 IV discontinued, intact, bleeding controlled, No redness/swelling at site. Pressure ca1 dressing applied. Administered Medications: 15:20 Drug: Zofran 4 mg Route: IVP; Site: right antecubital; ca1 16:11 Follow up: Response: No adverse reaction; Nausea is decreased ca1 17:04 Follow up: Response: No adverse reaction; Nausea is decreased ca1 16:10 Drug: NS 0.9% 500 ml Volume: 500 ml; Route: IV; Rate: 1 bolus; Site: right antecubital; ca1 17:00 Follow up: IV Status: Completed infusion ca1 16:11 Drug: morphine 4 mg Route: IVP; Site: right antecubital; ca1 18:14 Follow up: Response: No adverse reaction; Pain is decreased ca1 17:24 Not Given (Duplicate Order): Dilaudid 2 mg IVP once ca1 17:25 Drug: NS 0.9% 1000 ml Route: IV; Rate: 125 ml/hr; Site: right antecubital; ca1 18:09 Follow up: Response: No adverse reaction; IV Status: Pt discharged ca1 17:25 Drug: Dilaudid 1 mg Route: IVP; Site: right antecubital; ca1 18:14 Follow up: Response: No adverse reaction; Pain is decreased ca1 Outcome: 17:53 Discharge ordered by MD. kdr 18:08 Discharged to home via wheelchair, with significant other. ca1 18:08 Condition: stable 18:08 Discharge instructions given to patient, family, Instructed on discharge instructions, follow up and referral plans. Demonstrated understanding of instructions, follow-up care. 18:24 Patient left the ED. ca1 Signatures: Calvin Wright MD MD kdr Hall, Patricia, RN RN ph Jennifer Suarez [facility] Corie Davila RN RN ca1 Corrections: (The following items were deleted from the chart) 15:04 14:57 Acuity: JOZEF 3 ph ph 15:16 15:04 BP 160 / 95; Pulse 125bpm; Resp 20bpm; Pulse Ox 100% RA; Temp 97.5F; 129.27 kg; ph Height 5 ft. 6 in.; BMI: 46.0; ph 18:04 18:03 Reassessment: Patient appears in no apparent distress at this time. Patient is ca1 alert, oriented x 3, equal unlabored respirations, skin warm/dry/pink. ca1 18:24 18:23 Reassessment: Assisted pt to taxi via sheelchair with Sathish ca1 ca1
[2019-04-05 18:51] VITALS: O2SAT 100
[2019-04-05 18:55] VITALS: BP 172/97; TEMP 98.3
--- NOTE | 2019-04-06 00:45 | HP ---
Date of Admission: 04/05/2019 Mr. Ngo is a 68-year-old male, who has a history of having chronic low back pain. He has an indwell ing intrathecal pump. He had a scheduled appointment in our office last week. He missed the appoint ment because he was unable to get a ride. He was running into what appeared to be withdrawal symptom s. He was taken into the emergency room at [facility]. He is here today with signs and sym ptoms of withdrawal, also to get his intrathecal pump refilled. The telemetry was placed over the in trathecal pump and noted that he had hydromorphone at 4 mg/cc, clonidine bupivacaine at 5 mg/cc, current rate was 0.9 mg of hydromorphone per day, 0.3 cc. The pump was prepped and draped in a sterile fashion. A specialized needle was inserted into the pump. Aspiration revealed less than 0.3 cc of clear fluid. A syringe labelled with Kiel Ngo's name with the same medicatio ns 19 cc was injected into the pump, 1 cc was discarded, rate was kept the same. He is to follow up with us on his next refill date. /TAMIKA Voice ID: [id number]
== END 2019-04-05 18:24 | disposition home or self-care (01) ==
LOC: ER 14:49
DX: G89.29 Other chronic pain (principal); G89.4 Chronic pain syndrome; I10 Essential (primary) hypertension; E11.9 Type 2 diabetes mellitus without complications; I48.91 Unspecified atrial fibrillation; Z79.4 Long term (current) use of insulin; Z88.5 Allergy status to narcotic agent; Z88.8 Allergy status to other drugs, medicaments and biological substances
CPT/HCPCS: 96361; 85025; 80048; 36415; 82962; 80076; 83690; 96375; 96374; 99285; J1170; J7030; J2405

== ENCOUNTER 2020-07-15 19:38 | Emergency (ER) | payer OTHER ==
[2020-07-15 20:29] LABS: Absolute Lymphocytes (CBC) 1.2 K/uL (0.7-4.9); Basophils % 0.7 % (0-1.3); Hematocrit 44.5 % (39.6-49.0); Lymphocytes % 7.9 % (15.3-44.8); RBC Red Blood Cell Count 5.46 M/uL (4.33-5.43)
[2020-07-15 20:30] LABS: Protime INR 1.23
[2020-07-15] MEDS ORDERED: NA CHLORIDE 0.9% 1,000 ML ONE ×2 (20:36→22:59)
[2020-07-15 20:48] LABS: ALT/SGPT 22 U/L (12-78); AST/SGOT 11 U/L (15-37); Albumin 2.4 g/dL (3.4-5.0); Alkaline Phosphatase 291 U/L (45-117); BUN Blood Urea Nitrogen 8 mg/dL (7-18); Bicarbonate 27 mmol/L (21-32); Bilirubin Direct 0.3 mg/dL (0-0.2); Bilirubin Total 0.8 mg/dL (0.2-1.0); Magnesium 2.1 mg/dL (1.8-2.4); NT PRO-BNP 333 pg/mL (<125); Potassium 3.5 mmol/L (3.5-5.1); Protein, Total 6.4 g/dL (6.4-8.2); Sodium Level 133 mmol/L (136-145); Troponin (Emerg Dept Use Only) < 0.02 ng/mL (0.0-0.045)
[2020-07-15 20:49] LABS: Glucose Level 404 mg/dL (74-106)
[2020-07-15 21:07] LABS: Platelet Estimate ADEQ; White Blood Cell Scan OK (OK)
[2020-07-15 21:08] LABS: Blood Morphology Comment NOT SEEN (NOT SEEN)
[2020-07-15] MEDS ORDERED: MORPHINE 4 MG/ML SYR ONE (21:09)
[2020-07-15] MEDS ORDERED: ONDANSETRON 4 MG/2 ML VIAL ONE (21:09)
[2020-07-15] MEDS ORDERED: INSULIN -REGULAR HUMAN 50 UNIT/0.5 ML ML ONE (21:21)
--- NOTE | 2020-07-15 21:54 | RAD REPORT ---
EXAM DESCRIPTION: RAD - Chest Single View - 07/15/2020 9:25 pm CLINICAL HISTORY: Generalized weakness Chest pain. COMPARISON: Chest Single View dated 11/17/2018; Chest Single View dated 06/23/2018; Chest Single View d ated 06/12/2018; CHEST SINGLE VIEW dated 11/01/2014 FINDINGS: Portable technique limits examination quality. Chronic elevation right hemidiaphragm is noted, unchanged. Lungs are grossly clear. The heart is uppe r limit normal in size. No displaced fractures.
[2020-07-15] MEDS ORDERED: DIPHENHYDRAMINE 50 MG/ML VIAL ONE (23:10)
--- NOTE | 2020-07-16 00:03 | EDPHYS ---
Physician Documentation [facility] Name: Kiel Ngo Age: 69 yrs Sex: Male : 1950 Arrival Date: 07/15/2020 Time: 19:47 Bed 8 Private MD: LAURIE Physician Ruben Mendoza HPI: 07/15 21:05 This 69 yrs old Male presents to ER via EMS with complaints of General pm1 Weakness. 21:05 The patient presents to the emergency department with vomiting, 2 times since pm1 yesterday, diarrhea, 5 times since yesterday. Onset: The symptoms/episode began/occurred yesterday. Possible causes: unknown. The symptoms are aggravated by nothing. The symptoms are alleviated by nothing. Associated signs and symptoms: Pertinent negatives: abdominal pain, constipation, dysuria, fever. Severity of symptoms: in the emergency department the symptoms have improved Patient not nauseated and tolerating PO. Requesting water to drink. Patient with psoriasis present diffusely and reports that his rash is itchy and painful. Patient reports generalized weakness that he quantifies as decreased ability to transfer from his bed to bedside commode. Patient is primarily bedbound. Historical: - Allergies: 19:51 Demerol; lp1 19:51 metformin; lp1 - Home Meds: 19:51 alprazolam 0.25 mg Oral tab [Active]; Ambien 10 mg Oral tab [Active]; Ambien 10 mg Oral lp1 tab 1 tab once daily [Active]; Benadryl 50mg Oral [Active]; Effexor XR 150 mg Oral cp24 [Active]; Humulin 70/30 55units Sub-Q at breakfast [Active]; Humulin 70/30 50 units Sub-Q at supper [Active]; hydromorphone 8 mg Oral tab 1 tab every 4 hours [Active]; Salicylic Acid/ Ceramide Cmb #1 [Active]; tizanidine 4 mg Oral cap [Active]; venlafaxine 150 mg Oral cp24 1 cap twice a day [Active]; - PMHx: 19:51 Atrial Fib; Diabetes - IDDM; Hypertension; Lymphadema; psoriasis; Chronic pain; lp1 - PSHx: 19:51 Foor surgery; Pain pump- Dilaudid; lp1 - Immunization history:: Adult Immunizations unknown. - Social history:: Smoking status: Patient denies any tobacco usage or history of. ROS: 21:05 Constitutional: Negative for fever, chills, and weight loss, Eyes: Negative for injury, pm1 pain, redness, and discharge, ENT: Negative for injury, pain, and discharge, Neck: Negative for injury, pain, and swelling, Cardiovascular: Negative for chest pain, palpitations, and edema, Respiratory: Negative for shortness of breath, cough, wheezing, and pleuritic chest pain. 21:05 Back: Negative for injury and pain, : Negative for injury, bleeding, discharge, and swelling, MS/Extremity: Negative for injury and deformity. 21:05 Abdomen/GI: Positive for nausea, vomiting, and diarrhea, Negative for abdominal pain. 21:05 Skin: Positive for rash. 21:05 Neuro: Positive for generalized weakness, Negative for altered mental status, dizziness, headache, focal weakness. Exam: 21:05 Constitutional: This is a well developed, well nourished patient who is awake, alert, pm1 and in no acute distress. Head/Face: Normocephalic, atraumatic. 21:05 Back: No spinal tenderness. No costovertebral tenderness. Full range of motion. 21:05 Cardiovascular: Exam negative for acute changes, Rate: tachycardic, Rhythm: regular, Pulses: no pulse deficits are appreciated. 21:05 Respiratory: Exam negative for acute changes, respiratory distress, shortness of breath, wheezing. 21:05 Abdomen/GI: Inspection: obese Palpation: abdomen is soft and non-tender, in all quadrants. 21:05 Skin: Appearance: normal except for affected area, consistent with psoriasis, and is diffusely located. 21:05 Neuro: Exam negative for acute changes, Motor: moves all fours, Sensation: is normal, no obvious gross deficits. Vital Signs: 19:48 BP 108 / 66; Pulse 128; Resp 16; Temp 97.6(O); Pulse Ox 94% on R/A; Weight 113.4 kg (R);lp1 20:31 BP 113 / 70; Pulse 113; Resp 17; Pulse Ox 99% ; rr5 21:30 BP 126 / 85; Pulse 114; Resp 14; Pulse Ox 98% ; rr5 22:30 BP 113 / 54; Pulse 111; Resp 17; Pulse Ox 100% on R/A; rr5 23:30 BP 102 / 69; Pulse 102; Resp 17; Pulse Ox 99% ; rr5 07/16 00:30 BP 104 / 73; Pulse 95; Resp 20; Pulse Ox 98% ; rr5 01:30 BP 108 / 70; Pulse 99; Resp 16; Pulse Ox 99% ; rr5 MDM: 07/15 20:16 Patient medically screened. pm1 20:16 ED course: No atrial fibrillation present on EKG. Tachycardia at 124. pm1 22:37 Data reviewed: vital signs. Data interpreted: Pulse oximetry: on room air is 99 %. pm1 Interpretation: normal. 23:33 Counseling: I had a detailed discussion with the patient and/or guardian regarding: the pm1 historical points, exam findings, and any diagnostic results supporting the discharge/admit diagnosis, lab results, radiology results, the need for outpatient follow up, to return to the emergency department if symptoms worsen or persist or if there are any questions or concerns that arise at home. 07/15 20:18 Order name: Basic Metabolic Panel pm1 07/15 20:18 Order name: CBC with Diff; Complete Time: 22:02 pm1 07/15 20:18 Order name: LFT's; Complete Time: 21:06 pm1 07/15 20:18 Order name: Magnesium; Complete Time: 21:06 pm1 07/15 20:18 Order name: NT PRO-BNP; Complete Time: 21:06 pm1 07/15 20:18 Order name: PT-INR; Complete Time: 21:06 pm1 07/15 20:18 Order name: Troponin (emerg Dept Use Only); Complete Time: 21:06 pm1 07/15 20:18 Order name: XRAY Chest (1 view); Complete Time: 22:02 pm1 07/15 20:19 Order name: Basic Metabolic Panel; Complete Time: 21:06 EDMS 07/15 20:31 Order name: CBC Smear Scan; Complete Time: 22:02 EDMS 07/15 22:46 Order name: Glucose, Ancillary Testing EDMS 07/15 22:46 Order name: Glucose, Ancillary Testing; Complete Time: 22:46 EDMS 07/15 20:18 Order name: EKG; Complete Time: 20:20 pm1 07/15 20:18 Order name: Cardiac monitoring; Complete Time: 20:21 pm1 07/15 20:18 Order name: EKG - Nurse/Tech; Complete Time: 20:21 pm1 07/15 20:18 Order name: IV Saline Lock; Complete Time: 20:21 pm1 07/15 20:18 Order name: Labs collected and sent; Complete Time: 20:20 pm1 07/15 20:18 Order name: O2 Per Protocol; Complete Time: 20:20 pm1 07/15 20:18 Order name: O2 Sat Monitoring; Complete Time: 20:20 pm1 Administered Medications: 20:27 Drug: NS 0.9% 1000 ml Route: IV; Rate: 1000 ml; Site: right hand; rr5 22:00 Follow up: Response: No adverse reaction; IV Status: Completed infusion; IV Intake: rr5 1000ml 21:00 Drug: Zofran (Ondansetron) 4 mg Route: IVP; Site: right hand; rr5 22:00 Follow up: Response: No adverse reaction rr5 21:02 Drug: morphine 4 mg {Note: rass0.} Route: IVP; Site: right hand; rr5 22:10 Follow up: Response: No adverse reaction; RASS: Alert and Calm (0) rr5 21:10 Drug: Insulin Regular Human 10 units {Co-Signature: rv (Haja Plaza RN).} Route: rr5 IVP; Site: right hand; 22:10 Follow up: Response: No adverse reaction; Blood sugar is lowered rr5 22:49 Drug: NS 0.9% 1000 ml Route: IV; Rate: 1000 ml; Site: right hand; rr5 23:50 Follow up: Response: No adverse reaction; IV Status: Completed infusion; IV Intake: rr5 1000ml 23:00 Drug: Benadryl 12.5 mg Route: IVP; Site: right hand; rr5 07/16 03:08 Follow up: Response: No adverse reaction rr5 Disposition: 05:28 Co-signature as Attending Physician, Ruben Mendoza MD. [email or web address] Disposition: 07/16/20 00:03 Discharged to Home. Impression: Diarrhea, unspecified, Vomiting, Psoriasis, unspecified. - Condition is Stable. - Discharge Instructions: Food Choices to Help Relieve Diarrhea, Adult, Diarrhea, Adult, Nausea and Vomiting, Adult, Psoriasis, Viral Gastroenteritis, Adult. - Medication Reconciliation Form, Thank You Letter, Antibiotic Education, Prescription Opioid Use, SBAR form form. - Follow up: Emergency Department; When: As needed; Reason: Worsening of condition. Follow up: Private Physician; When: 2 - 3 days; Reason: Recheck today's complaints, Continuance of care, Re-evaluation by your physician. - Problem is new. - Symptoms have improved. Signatures: Dispatcher [employer] EDTX Nicole Hammond RN RN lp1 Tay Olsen NP [employer] pm1 Pritesh Lopez RN RN rr5 Ruben Mendoza MD MD 7 Haja Plaza RN rv Corrections: (The following items were deleted from the chart) 01:39 00:03 07/16/2020 00:03 Discharged to Home. Impression: Diarrhea, unspecified; Vomiting; rr5 Psoriasis, unspecified. Condition is Stable. Forms are Medication Reconciliation Form, Thank You Letter, Antibiotic Education, Prescription Opioid Use. Follow up: Emergency Department; When: As needed; Reason: Worsening of condition. Follow up: Private Physician; When: 2 - 3 days; Reason: Recheck today's complaints, Continuance of care, Re-evaluation by your physician. Problem is new. Symptoms have improved. pm1
--- NOTE | 2020-07-16 00:03 | ER ---
Nurse's Notes [facility] Name: Kiel Ngo Age: 69 yrs Sex: Male : 1950 Arrival Date: 07/15/2020 Time: 19:47 Bed 8 Private MD: Diagnosis: Diarrhea, unspecified;Vomiting;Psoriasis, unspecified Presentation: 07/15 19:48 Chief complaint: EMS states: Called for generalized weakness after vomiting and lp1 diarrhea the last 2 days; Patient is bed bound, baseline able to transfer from bed to bsc, patient too weak to transfer today; Rash to general body, hx of psoriasis. Coronavirus screen: Client denies travel out of the [place] in the last 14 days. At this time, the client does not indicate any symptoms associated with coronavirus-19. Ebola Screen: No symptoms or risks identified at this time. Initial Sepsis Screen: Does the patient meet any 2 criteria? HR > 90 bpm. Does the patient have a suspected source of infection? No. Patient's initial sepsis screen is negative. Risk Assessment: Do you want to hurt yourself or someone else? Patient reports no desire to harm self or others. Onset of symptoms was July 15, 2020. 19:48 Acuity: JOZEF 2 lp1 19:48 Method Of Arrival: EMS: [facility] lp1 19:51 Care prior to arrival: IV initiated. 20 GA, in the left antecubital area, Glucose lp1 check: 418. Historical: - Allergies: 19:51 Demerol; lp1 19:51 metformin; lp1 - Home Meds: 19:51 alprazolam 0.25 mg Oral tab [Active]; Ambien 10 mg Oral tab [Active]; Ambien 10 mg Oral lp1 tab 1 tab once daily [Active]; Benadryl 50mg Oral [Active]; Effexor XR 150 mg Oral cp24 [Active]; Humulin 70/30 55units Sub-Q at breakfast [Active]; Humulin 70/30 50 units Sub-Q at supper [Active]; hydromorphone 8 mg Oral tab 1 tab every 4 hours [Active]; Salicylic Acid/ Ceramide Cmb #1 [Active]; tizanidine 4 mg Oral cap [Active]; venlafaxine 150 mg Oral cp24 1 cap twice a day [Active]; - PMHx: 19:51 Atrial Fib; Diabetes - IDDM; Hypertension; Lymphadema; psoriasis; Chronic pain; lp1 - PSHx: 19:51 Foor surgery; Pain pump- Dilaudid; lp1 - Immunization history:: Adult Immunizations unknown. - Social history:: Smoking status: Patient denies any tobacco usage or history of. Screenin:15 Abuse screen: Denies threats or abuse. Denies injuries from another. Nutritional rr5 screening: No deficits noted. Tuberculosis screening: No symptoms or risk factors identified. Fall Risk Secondary diagnosis (15 points) impaired mobility, IV access (20 points). Total Chow Fall Scale indicates Low Risk Score (25-44 pts). Fall prevention measures have been instituted. Side Rails Up X 2 Frequent Obs/Assesments occuring Family Present and informed to notify staff if they need to leave bedside. Assessment: 20:00 General: Appears in no apparent distress. comfortable, Behavior is calm, cooperative, rr5 appropriate for age. Pain: Complains of pain in back. Neuro: Level of Consciousness is awake, alert, obeys commands, Oriented to person, place, time. Cardiovascular: Capillary refill < 3 seconds Patient's skin is warm and dry. Respiratory: Airway is patent Respiratory effort is even, unlabored, Respiratory pattern is regular, symmetrical. GI: Reports diarrhea, nausea, vomiting. : No signs and/or symptoms were reported regarding the genitourinary system. EENT: No signs and/or symptoms were reported regarding the EENT system. Derm: Rash noted that is itchy, papular, red, on chest, abdomen, pelvis, right arm, left arm, right leg, left leg, back of left arm, back of right arm, posterior chest, buttocks, back of left leg, back of right leg and back. 20:00 Musculoskeletal: Capillary refill < 3 seconds. rr5 20:00 Derm: Decubitus located on sacrum bilateral buttocks is stage II. rr5 20:40 Reassessment: Patient appears in no apparent distress at this time. Patient is alert, rr5 oriented x 3, equal unlabored respirations, skin warm/dry/pink. CBG 404 mg/Dl Ed provider aware with order made and carried out. 21:00 Reassessment: complaining of back pain. ED provider aware with order made and carried rr5 out. 22:10 Reassessment: Patient appears in no apparent distress at this time. repeat CB done, ED rr5 provider aware . 23:00 Reassessment: complaints of urticaria all over the body. ED provider aware with order rr5 made and carried out. 07/16 00:00 Reassessment: Patient appears in no apparent distress at this time. Ed provider with rr5 order for discharge. 00:30 Reassessment: mike CORTEZ called multiple times the of the patient to be updated, rr5 did not answer Patient states symptoms have improved. 01:00 Reassessment: Patient appears in no apparent distress at this time. resting eyes closed rr5 breathing spontaneously at room air. vital signs hemodynamically stable.clerk secretary arranging EMS transport going home. 01:30 Reassessment: Patient appears in no apparent distress at this time. report given to rr5 CARL. patient is awake alert, vital signs taken and recorded. clerk secretary informed the of the patient for the discharge Patient states symptoms have improved. Vital Signs: 07/15 19:48 BP 108 / 66; Pulse 128; Resp 16; Temp 97.6(O); Pulse Ox 94% on R/A; Weight 113.4 kg (R);lp1 20:31 BP 113 / 70; Pulse 113; Resp 17; Pulse Ox 99% ; rr5 21:30 BP 126 / 85; Pulse 114; Resp 14; Pulse Ox 98% ; rr5 22:30 BP 113 / 54; Pulse 111; Resp 17; Pulse Ox 100% on R/A; rr5 23:30 BP 102 / 69; Pulse 102; Resp 17; Pulse Ox 99% ; rr5 07/16 00:30 BP 104 / 73; Pulse 95; Resp 20; Pulse Ox 98% ; rr5 01:30 BP 108 / 70; Pulse 99; Resp 16; Pulse Ox 99% ; rr5 ED Course: 07/15 19:35 EKG done, by ED staff, reviewed by Tay Olsen NP. rr5 19:40 Inserted saline lock: 20 gauge in right hand, using aseptic technique. Blood collected. rr5 Maintain EMS IV. Dressing intact. Site clean \T\ dry. Gauge \T\ site: G20 left AC. 19:47 Patient arrived in ED. lp1 19:49 Lopez, Pritesh, RN is Primary Nurse. rr5 19:49 Triage completed. lp1 19:49 Arm band placed on. lp1 19:51 Patient has correct armband on for positive identification. Bed in low position. Call lp1 light in reach. Side rails up X2. hourly team members on. Pulse ox on. NIBP on. 20:11 Tay Olsen NP is PHCP. pm1 20:11 Ruben Mendoza MD is Attending Physician. pm1 21:26 XRAY Chest (1 view) In Process Unspecified. EDMS 07/16 01:35 No provider procedures requiring assistance completed. IV discontinued, intact, rr5 bleeding controlled, No redness/swelling at site. Pressure dressing applied. Administered Medications: 07/15 20:27 Drug: NS 0.9% 1000 ml Route: IV; Rate: 1000 ml; Site: right hand; rr5 22:00 Follow up: Response: No adverse reaction; IV Status: Completed infusion; IV Intake: rr5 1000ml 21:00 Drug: Zofran (Ondansetron) 4 mg Route: IVP; Site: right hand; rr5 22:00 Follow up: Response: No adverse reaction rr5 21:02 Drug: morphine 4 mg {Note: rass0.} Route: IVP; Site: right hand; rr5 22:10 Follow up: Response: No adverse reaction; RASS: Alert and Calm (0) rr5 21:10 Drug: Insulin Regular Human 10 units {Co-Signature: rv (Haja Plaza RN).} Route: rr5 IVP; Site: right hand; 22:10 Follow up: Response: No adverse reaction; Blood sugar is lowered rr5 22:49 Drug: NS 0.9% 1000 ml Route: IV; Rate: 1000 ml; Site: right hand; rr5 23:50 Follow up: Response: No adverse reaction; IV Status: Completed infusion; IV Intake: rr5 1000ml 23:00 Drug: Benadryl 12.5 mg Route: IVP; Site: right hand; rr5 07/16 03:08 Follow up: Response: No adverse reaction rr5 Intake: 07/15 22:00 IV: 1000ml; Total: 1000ml. rr5 23:50 IV: 1000ml; Total: 2000ml. rr5 Outcome: 07/16 00:03 Discharge ordered by . pm1 01:35 Discharged to home via ambulance. rr5 01:35 Condition: stable 01:35 Discharge instructions given to patient, Instructed on discharge instructions, follow up and referral plans. Demonstrated understanding of instructions, follow-up care. 01:39 Patient left the ED. rr5 Signatures: Dispatcher [employer] EDMS Nicole Hammond RN RN lp1 Tay Olsen, AIDE [employer]AKERY WORKER pm1 Pritesh Lopez RN RN rr5 Haja Plaza RN rv
[2020-07-16 02:11] VITALS: TEMP 98.6
[2020-07-16 02:14] VITALS: BP 121/75; O2SAT 97
== END 2020-07-16 01:39 | disposition home or self-care (01) ==
LOC: ER 19:38
DX: R19.7 Diarrhea, unspecified (principal); R11.10 Vomiting, unspecified; L40.9 Psoriasis, unspecified; I10 Essential (primary) hypertension; E11.9 Type 2 diabetes mellitus without complications; I48.91 Unspecified atrial fibrillation; Z79.4 Long term (current) use of insulin; Z88.5 Allergy status to narcotic agent; Z88.8 Allergy status to other drugs, medicaments and biological substances
CPT/HCPCS: 96361; 93005; 85025; 80048; 36415; 83735; 85610; 82947; 80076; 84484; 83880; 71045; 96375; 96374; 99285; J1200; J7030 ×2; J2405

== ENCOUNTER 2020-08-05 14:22 | Inpatient (IN) | payer OTHER ==
[2020-08-05] MEDS ORDERED: NA CHLORIDE 0.9% 1,000 ML ONE (15:22)
[2020-08-05] MEDS ORDERED: PIPER/TAZO/NS 3.375gm 3.375 GM/100 ML BAG ONE ×2 (15:23→23:51)
[2020-08-05] MEDS ORDERED: ONDANSETRON 4 MG/2 ML VIAL ONE (15:35)
[2020-08-05] MEDS ORDERED: MORPHINE 2 MG/ML SYR ONE ×2 (15:35→16:52)
[2020-08-05 15:40] LABS: Absolute Lymphocytes (CBC) 1.6 K/uL (0.7-4.9); Basophils % 0.6 % (0-1.3); Hematocrit 39.9 % (39.6-49.0); Lymphocytes % 11.6 % (15.3-44.8); MPV 6.4 fL (7.6-11.3); Protime INR 1.04; RBC Red Blood Cell Count 5.05 M/uL (4.33-5.43)
--- NOTE | 2020-08-05 15:48 | RAD REPORT ---
EXAM DESCRIPTION: RAD - Chest Single View - 08/05/2020 3:13 pm CLINICAL HISTORY: el;Palpitations Chest pain. COMPARISON: Chest Single View dated 07/15/2020; Chest Single View dated 11/17/2018; Chest Single View d ated 06/23/2018; Chest Single View dated 06/12/2018 FINDINGS: Portable technique limits examination quality. The lungs are grossly clear. The heart is normal in size. No displaced fractures. IMPRESSION: No acute intrathoracic process suspected.
[2020-08-05 15:54] LABS: ALT/SGPT 51 U/L (12-78); AST/SGOT 22 U/L (15-37); Albumin 2.7 g/dL (3.4-5.0); Alkaline Phosphatase 448 U/L (45-117); BUN Blood Urea Nitrogen 8 mg/dL (7-18); Bicarbonate 28 mmol/L (21-32); Bilirubin Direct 0.3 mg/dL (0-0.2); Bilirubin Total 0.8 mg/dL (0.2-1.0); Creatine Phosphokinase 21 U/L (39-308); Glucose Level 269 mg/dL (74-106); Potassium 3.7 mmol/L (3.5-5.1); Protein, Total 7.6 g/dL (6.4-8.2); Sodium Level 134 mmol/L (136-145); Troponin (Emerg Dept Use Only) < 0.02 ng/mL (0.0-0.045)
[2020-08-05] MEDS ORDERED: VANCOMYCIN/NS 1 gm 1 GM/250 ML BAG IVPB ONE (16:00)
--- NOTE | 2020-08-05 16:50 | ER ---
Nurse's Notes [facility] Name: Kiel Ngo Age: 69 yrs Sex: Male : 1950 Arrival Date: 08/05/2020 Time: 14:27 Bed 20 Private MD: Diagnosis: Other sepsis;Cellulitis of buttock;Cellulitis of back [any part except buttock] Presentation: 08/05 14:30 Chief complaint: EMS states: called out for possible scabies rash that has started sv weeping and not improving. On EMS arrival pt had a RH of 140s and pt stated that its normally that high. Coronavirus screen: Client denies travel out of the [place] in the last 14 days. At this time, the client does not indicate any symptoms associated with coronavirus-19. Ebola Screen: No symptoms or risks identified at this time. Risk Assessment: Do you want to hurt yourself or someone else? Patient reports no desire to harm self or others. Onset of symptoms is unknown. 14:30 Method Of Arrival: EMS: [facility] sv 14:30 Acuity: JOZEF 2 sv 14:31 Initial Sepsis Screen: Does the patient meet any 2 criteria? RR > 20 per min. HR > 90 sv bpm. Yes Does the patient have a suspected source of infection? Yes: Skin breakdown/wound. Historical: - Allergies: 14:28 Demerol; rb1 14:28 metformin; rb1 - Home Meds: 14:28 alprazolam 0.25 mg Oral tab [Active]; Ambien 10 mg Oral tab [Active]; Ambien 10 mg Oral rb1 tab 1 tab once daily [Active]; Benadryl 50mg Oral [Active]; Effexor XR 150 mg Oral cp24 [Active]; Humulin 70/30 55units Sub-Q at breakfast [Active]; Humulin 70/30 50 units Sub-Q at supper [Active]; hydromorphone 8 mg Oral tab 1 tab every 4 hours [Active]; Salicylic Acid/ Ceramide Cmb #1 [Active]; tizanidine 4 mg Oral cap [Active]; venlafaxine 150 mg Oral cp24 1 cap twice a day [Active]; - PMHx: 14:28 Atrial Fib; Chronic pain; Diabetes - IDDM; Hypertension; Lymphadema; psoriasis; rb1 - PSHx: 14:28 Foor surgery; Pain pump- Dilaudid; rb1 - Immunization history:: Adult Immunizations up to date. - Social history:: Smoking status: Patient/guardian denies using. Screenin:43 Fall Risk No fall in past 12 months (0 pts). Secondary diagnosis (15 points) impaired rb1 mobility, IV access (20 points). Ambulatory Aid- Crutches/Cane/Walker (15 pts). Gait- Impaired (20 pts.). Mental Status- Oriented to own ability (0 pts). Total Chow Fall Scale indicates High Risk Score (45 or more points). Fall prevention measures have been instituted. Side Rails Up X 2 Placed Close to Nursing Station 1:1 Attendant Assigned Frequent Obs/Assessments Occuring As available patient and family educated on Fall Prevention Program and Strategies. 15:43 Abuse screen: Denies threats or abuse. Nutritional screening: No deficits noted. rb1 Tuberculosis screening: No symptoms or risk factors identified. Assessment: 14:33 Reassessment: Code Sepsis called. sv 14:43 General: Appears in no apparent distress. Behavior is calm, cooperative. Pain: rb1 Complains of pain in buttocks Pain currently is 8 out of 10 on a pain scale. Neuro: Level of Consciousness is awake, alert, obeys commands, Oriented to person, place, time, situation. Cardiovascular: Capillary refill. Respiratory: Airway is patent Respiratory effort is even, unlabored, Respiratory pattern is regular, symmetrical. GI: No signs and/or symptoms were reported involving the gastrointestinal system. : Reports has difficulty urinating. Derm: Rash noted that is red, All over his trunk, arms and legs. 15:41 Reassessment: Patient appears in no apparent distress at this time. No changes from rb1 previously documented assessment. 16:40 Reassessment: Patient appears in no apparent distress at this time. Patient and/or rb1 family updated on plan of care and expected duration. Pain level reassessed. Patient is alert, oriented x 3, equal unlabored respirations, skin warm/dry/pink. Vital Signs: 14:31 BP 124 / 72; Pulse 136; Resp 22; Pulse Ox 99% ; Weight 113 kg; sv 15:29 Temp 97.6(O); ph 15:30 BP 133 / 72; Pulse 127; Resp 19; Pulse Ox 99% ; Pain 8/10; rb1 16:30 BP 117 / 62; Pulse 116; Resp 15; Pulse Ox 97% ; rb1 ED Course: 14:27 Patient arrived in ED. rb1 14:28 Stu Mcarthur PA is PHCP. cp 14:28 Michael Bosch MD is Attending Physician. cp 14:30 Patient has correct armband on for positive identification. Placed in gown. Bed in low rb1 position. Call light in reach. Side rails up X2. Pulse ox on. NIBP on. nut sifter on. Warm blanket given. 14:31 Triage completed. sv 14:31 Arm band placed on. sv 14:34 EKG done, by ED staff, reviewed by Stu AVELAR. dh3 14:46 Linda Samayoa, DIEGO is Primary Nurse. rb1 15:13 Chest Single View XRAY In Process Unspecified. EDMS 16:47 Isai Snow MD is Hospitalizing Provider. cp 16:51 Oxygen administration via nasal cannula \T\ 1L/min. ph 18:34 No provider procedures requiring assistance completed. Patient admitted, IV remains in rb1 place. Administered Medications: 15:28 Drug: NS 0.9% (30 ml/kg) 30 ml/kg Route: IV; Rate: bolus; Site: right hand; ph 15:28 Drug: Zosyn 3.375 grams Route: IVPB; Infused Over: 60 mins; Site: right hand; ph 15:29 Drug: morphine 2 mg Route: IVP; Site: right hand; ph 15:29 Drug: Zofran (Ondansetron) 4 mg Route: IVP; Site: right antecubital; ph 15:45 Follow up: Response: No adverse reaction rb1 16:30 Drug: vancoMYCIN 1 grams Route: IVPB; Infused Over: 2 hrs; Site: right forearm; ph 16:49 Drug: Benadryl 25 mg Route: IVP; Site: right hand; ph 17:03 Follow up: Response: No adverse reaction rb1 16:51 Drug: morphine 2 mg Route: IVP; Site: right hand; ph 17:03 Follow up: Response: No adverse reaction rb1 Outcome: 16:50 Decision to Hospitalize by Provider. cp 18:34 Patient left the ED. eb 18:34 Admitted to Med/surg accompanied by tech, room 206, with chart. rb1 18:34 Condition: stable 18:34 Instructed on the need for admit. Signatures: Dispatcher [employer] Carie Umaña RN RN sv Prachi Nguyen RN RN Stu Mcarthur PA PA cp Barber, Rebecca RN RN [facility] Davey, Johanna 3 Shannan Moraes Corrections: (The following items were deleted from the chart) 14:49 14:31 BP 124 / 72; Pulse 136bpm; Resp 22bpm; Pulse Ox 99%; sv sv 15:51 15:43 General: Appears in no apparent distress. Behavior is calm, cooperative, rb1 rb1 15:51 15:43 Neuro: Level of Consciousness is awake, alert, obeys commands, Oriented to rb1 person, place, time, situation, rb1 15:51 15:43 Pain: Complains of pain in buttocks Pain currently is 8 out of 10 on a pain rb1 scale. rb1 15:51 15:43 Cardiovascular: Capillary refill rb1 rb1 15:51 15:43 Respiratory: Airway is patent Respiratory effort is even, unlabored, Respiratory rb1 pattern is regular, symmetrical, rb1 15:51 15:43 GI: No signs and/or symptoms were reported involving the gastrointestinal system. rb1 rb1 15:51 15:43 : Reports has difficulty urinating rb1 rb1 15:51 15:43 Derm: Rash noted that is red, All over his trunk, arms and legs rb1 rb1
--- NOTE | 2020-08-05 16:50 | EDPHYS ---
Physician Documentation [facility] Name: Kiel Ngo Age: 69 yrs Sex: Male : 1950 Arrival Date: 08/05/2020 Time: 14:27 Bed 20 Private MD: ED Physician Michael Bosch HPI: 08/05 14:40 This 69 yrs old Male presents to ER via EMS with complaints of Rash, cp Tachycardia. 14:40 The patient presents with cellulitis of the back and buttocks. cp 14:40 Description: erythematous. Onset: The symptoms/episode began/occurred 1 week(s) ago. cp Associated signs and symptoms: Pertinent positives: drainage, Pertinent negatives: fever. Historical: - Allergies: 14:28 Demerol; rb1 14:28 metformin; rb1 - Home Meds: 14:28 alprazolam 0.25 mg Oral tab [Active]; Ambien 10 mg Oral tab [Active]; Ambien 10 mg Oral rb1 tab 1 tab once daily [Active]; Benadryl 50mg Oral [Active]; Effexor XR 150 mg Oral cp24 [Active]; Humulin 70/30 55units Sub-Q at breakfast [Active]; Humulin 70/30 50 units Sub-Q at supper [Active]; hydromorphone 8 mg Oral tab 1 tab every 4 hours [Active]; Salicylic Acid/ Ceramide Cmb #1 [Active]; tizanidine 4 mg Oral cap [Active]; venlafaxine 150 mg Oral cp24 1 cap twice a day [Active]; - PMHx: 14:28 Atrial Fib; Chronic pain; Diabetes - IDDM; Hypertension; Lymphadema; psoriasis; rb1 - PSHx: 14:28 Foor surgery; Pain pump- Dilaudid; rb1 - Immunization history:: Adult Immunizations up to date. - Social history:: Smoking status: Patient/guardian denies using. ROS: 14:45 Constitutional: Negative for body aches, chills, fever, poor PO intake. cp 14:45 Eyes: Negative for injury, pain, redness, and discharge. cp 14:45 Cardiovascular: Negative for chest pain. 14:45 Respiratory: Negative for cough, shortness of breath, wheezing. 14:45 Abdomen/GI: Negative for abdominal pain, nausea, vomiting, and diarrhea. 14:45 Skin: Positive for cellulitis, of the back and buttocks. 14:45 Neuro: Negative for altered mental status, headache, weakness. 14:45 All other systems are negative. Exam: 14:37 ECG was reviewed by the Attending Physician. cp 14:48 Constitutional: The patient appears in no acute distress, alert, awake, cp non-diaphoretic, non-toxic, well developed, well nourished. 14:48 Head/Face: Normocephalic, atraumatic. cp 14:48 Eyes: Periorbital structures: appear normal, Conjunctiva: normal, no exudate, no injection, Sclera: no appreciated abnormality, Lids and lashes: appear normal, bilaterally. 14:48 ENT: External ear(s): are unremarkable, Nose: is normal, Mouth: Lips: dry, Oral mucosa: moist, Posterior pharynx: Airway: no evidence of obstruction, patent. 14:48 Neck: ROM/movement: is normal, is supple, no meningismus, no nuchal rigidity. 14:48 Chest/axilla: Inspection: rash, that is moderate, Palpation: is normal, no crepitus, no tenderness. 14:48 Cardiovascular: Rate: tachycardic, Rhythm: regular, Edema: is not appreciated, JVD: is not appreciated. 14:48 Respiratory: the patient does not display signs of respiratory distress, Respirations: normal, no use of accessory muscles, no retractions, labored breathing, is not present, Breath sounds: are clear throughout, no decreased breath sounds. 14:48 Abdomen/GI: Inspection: abdomen appears normal, Palpation: abdomen is soft and non-tender, in all quadrants. 14:48 Back: pain, that is moderate. 14:48 Skin: cellulitis, that is moderate, well demarcated, on the back and buttocks. 14:48 Neuro: Orientation: to person, place \T\ time. Mentation: is normal, Motor: moves all fours, strength is normal, Sensation: no obvious gross deficits. Vital Signs: 14:31 BP 124 / 72; Pulse 136; Resp 22; Pulse Ox 99% ; Weight 113 kg; sv 15:29 Temp 97.6(O); ph 15:30 BP 133 / 72; Pulse 127; Resp 19; Pulse Ox 99% ; Pain 8/10; rb1 16:30 BP 117 / 62; Pulse 116; Resp 15; Pulse Ox 97% ; rb1 MDM: 14:33 Patient medically screened. cp 15:00 Differential diagnosis: abscess, cellulitis, sepsis, pressure ulcer. cp 15:43 Test interpretation: by ED physician or midlevel provider: ECG, chest xray negative for cp infiltrates. 16:39 Physician consultation: Isai Snow MD was called at 16:39, left message on voicemail. 16:40 Data reviewed: vital signs, nurses notes, lab test result(s), EKG, radiologic studies, cp plain films, and as a result, I will admit patient. 17:37 Physician consultation: Isai Snow MD was contacted at 17:42, regarding admission, to the telemetry unit. patient's condition. 08/05 14:32 Order name: Urine Culture 08/05 14:32 Order name: Basic Metabolic Panel; Complete Time: 16:07 08/05 16:07 Interpretation: Normal except: NA 134; CL 96; GLUC 269; GFR 76. 08/05 14:32 Order name: Blood Culture Adult (2) 08/05 14:32 Order name: CBC with Diff; Complete Time: 15:42 08/05 15:42 Interpretation: Normal except: WBC 13.3; HGB 13.3; MCV 78.8; MCH 26.3; PLT 514; RDW cp 15.3; MPV 6.4; DELVIS% 81.7; LYM% 11.6; NEUT A 10.9. 08/05 14:32 Order name: CPK; Complete Time: 16:07 08/05 14:32 Order name: Lactate; Complete Time: 16:07 08/05 16:36 Interpretation: Abnormal: LAC 2.7. 08/05 14:32 Order name: LFT's; Complete Time: 16:07 08/05 16:07 Interpretation: Normal except: ALK 448; BILID 0.3; ALB 2.7; GLOB 4.9; A/G 0.6. 08/05 14:32 Order name: Procalcitonin; Complete Time: 16:07 08/05 14:32 Order name: Protime (+inr); Complete Time: 15:42 08/05 14:32 Order name: Troponin (emerg Dept Use Only); Complete Time: 16:07 cp 08/05 14:32 Order name: Urine Microscopic Only cp 08/05 14:32 Order name: Urine Culture EDMS 08/05 17:49 Order name: Vancomycin Level Trough EDMS 08/05 17:49 Order name: Vancomycin Peak EDMS 08/05 14:32 Order name: Chest Single View XRAY; Complete Time: 16:07 cp 08/05 14:32 Order name: Accucheck; Complete Time: 15:29 cp 08/05 14:32 Order name: Cardiac monitoring; Complete Time: 14:33 cp 08/05 17:49 Order name: CONS Pharmacy Consult EDMS 08/05 17:49 Order name: CONS Pharmacy Consult EDMS 08/05 17:49 Order name: Consistent Carb (ADA) [address] EDMS 08/05 17:49 Order name: Basic Metabolic Panel EDMS 08/05 17:49 Order name: Basic Metabolic Panel EDMS 08/05 17:49 Order name: CBC with Automated Diff EDMS 08/05 17:49 Order name: CBC with Automated Diff EDMS 08/05 14:32 Order name: EKG - Nurse/Tech; Complete Time: 15:16 cp 08/05 14:32 Order name: IV Saline Lock - Large Bore; Complete Time: 15:29 cp 08/05 14:32 Order name: Labs collected and sent; Complete Time: 15:29 cp 08/05 14:32 Order name: O2 Per Protocol; Complete Time: 14:34 cp 08/05 14:32 Order name: O2 Sat Monitoring; Complete Time: 14:34 cp EC:37 Rate is 131 beats/min. Rhythm is regular. OK interval is normal. QRS interval is cp normal. QT interval is normal. Interpreted by me. Reviewed by me. Administered Medications: 15:28 Drug: NS 0.9% (30 ml/kg) 30 ml/kg Route: IV; Rate: bolus; Site: right hand; ph 15:28 Drug: Zosyn 3.375 grams Route: IVPB; Infused Over: 60 mins; Site: right hand; ph 15:29 Drug: morphine 2 mg Route: IVP; Site: right hand; ph 15:29 Drug: Zofran (Ondansetron) 4 mg Route: IVP; Site: right antecubital; ph 15:45 Follow up: Response: No adverse reaction rb1 16:30 Drug: vancoMYCIN 1 grams Route: IVPB; Infused Over: 2 hrs; Site: right forearm; ph 16:49 Drug: Benadryl 25 mg Route: IVP; Site: right hand; ph 17:03 Follow up: Response: No adverse reaction rb1 16:51 Drug: morphine 2 mg Route: IVP; Site: right hand; ph 17:03 Follow up: Response: No adverse reaction rb1 Disposition: 08/06 07:36 Co-signature as Attending Physician, Michael Bosch MD. rn Disposition: 08/05/20 16:50 Hospitalization ordered by Isai Snow for Inpatient Admission. Preliminary diagnosis are Other sepsis, Cellulitis of buttock, Cellulitis of back [any part except buttock]. - Bed requested for Telemetry/MedSurg (Inpatient). - Status is Inpatient Admission. eb - Condition is Stable. - Problem is new. - Symptoms have improved. Signatures: Dispatcher [employer] EDMS Michael Bosch MD MD rn Prachi Nguyen RN RN Stu Mcarthur PA PA Linda Herrera RN RN [facility] Shannan Moraes Corrections: (The following items were deleted from the chart) 08/05 17:42 17:37 Physician consultation: Isai Snow MD cp cp 18:03 16:50 Hospitalization Ordered by Isai Snow MD for Inpatient Admission. Preliminary eb diagnosis is Other sepsis; Cellulitis of buttock; Cellulitis of back [any part except buttock]. Bed requested for Telemetry/MedSurg (Inpatient). Status is Inpatient Admission. Condition is Stable. Problem is new. Symptoms have improved. cp 18:34 18:03 08/05/2020 16:50 Hospitalization Ordered by Isai Snow MD for Inpatient eb Admission. Preliminary diagnosis is Other sepsis; Cellulitis of buttock; Cellulitis of back [any part except buttock]. Bed requested for Telemetry/MedSurg (Inpatient). Status is Inpatient Admission. Condition is Stable. Problem is new. Symptoms have improved. eb
[2020-08-05] MEDS ORDERED: DIPHENHYDRAMINE 50 MG/ML VIAL ONE (16:55)
[2020-08-05] MEDS ORDERED: D50W 25 GM/50 ML SYRINGE/VIAL IV PRN (17:44)
[2020-08-05] MEDS ORDERED: GLUCAGON 1 MG/VIAL IM PRN (17:44)
[2020-08-05] MEDS ORDERED: Pharmacy Consult 1 EA XX PRN (17:45)
[2020-08-05] MEDS ORDERED: ACETAMINOPHEN 500 MG TAB PO PRN (17:47)
[2020-08-05 18:49] VITALS: BMI 31.3
[2020-08-05] MEDS: NA CHLORIDE 0.9% 1,000 ML IV SCH (18:57)
[2020-08-05] MEDS ORDERED: VANCOMYCIN 750 MG in NA CHLORIDE 0.9% 150 ML IVPB ONE (19:15)
[2020-08-05] MEDS ORDERED: NA CHLORIDE 0.9% 250 ML ONE (20:08)
[2020-08-05 20:14] LABS: Urine Bacteria <20 /HPF (NONE SEEN); Urine RBC <5 /HPF (NONE SEEN)
[2020-08-05 20:15] LABS: Urine Culture Reflex Order NOT NEEDED
[2020-08-05] MEDS ORDERED: VANCOMYCIN 1 GM/VIAL ONE (20:25)
[2020-08-05] MEDS: INSULIN -REGULAR HUMAN 50 UNIT/0.5 ML ML SQ SCH (20:49)
[2020-08-05] MEDS: HYDROMORPHONE ORAL 4 MG TAB PO PRN (20:50)
[2020-08-05] MEDS: ONDANSETRON 4 MG/2 ML VIAL IV PRN (20:52)
[2020-08-05] MEDS: ALPRAZOLAM 0.25 MG TABLET PO PRN (22:58)
[2020-08-06] MEDS: PIPER/TAZO/NS 3.375gm 3.375 GM/100 ML BAG IVPB SCH ×2 (01:11→09:36)
[2020-08-06] MEDS: ONDANSETRON 4 MG/2 ML VIAL IV PRN (02:43)
[2020-08-06] MEDS: HYDROMORPHONE ORAL 4 MG TAB PO PRN ×2 (04:03→12:11)
[2020-08-06] MEDS: NA CHLORIDE 0.9% 1,000 ML IV SCH ×2 (04:09→07:27)
[2020-08-06 06:15] LABS: Absolute Lymphocytes (CBC) 1.9 K/uL (0.7-4.9); Basophils % 0.7 % (0-1.3); Lymphocytes % 19.7 % (15.3-44.8); MPV 6.4 fL (7.6-11.3); RBC Red Blood Cell Count 4.84 M/uL (4.33-5.43)
[2020-08-06 06:49] LABS: Potassium 3.8 mmol/L (3.5-5.1)
[2020-08-06] MEDS ORDERED: hydrOXYzine HCL 25 MG TAB PO PRN (07:20)
[2020-08-06] MEDS: ENOXAPARIN 40 MG/0.4 ML SQ SCH (09:36)
[2020-08-06] MEDS: INSULIN -REGULAR HUMAN 50 UNIT/0.5 ML ML SQ SCH ×4 (09:37→21:00)
[2020-08-06] MEDS: TIZANIDINE 4 MG TABLET PO SCH ×2 (09:37→21:24)
[2020-08-06] MEDS: INSULIN 70/30 100 UNITS/ML SQ SCH ×2 (09:37→16:18)
[2020-08-06] MEDS: hydrOXYzine HCL 25 MG TAB PO PRN (09:37)
[2020-08-06] MEDS ORDERED: PNEUMOCOCCAL VACCINE 0.5 ML IMVAC ONE (10:00)
[2020-08-06] MEDS ORDERED: INFLUENZA VACCINE (for 3y+) 0.5 ML DOSE IMVAC ONE (10:00)
--- NOTE | 2020-08-06 10:12 | P.HP ---
Certification for Inpatient Patient admitted to: Inpatient With expected LOS: >2 Midnights Practitioner: I am a practitioner with admitting privileges, knowledge of patient current condition, hospital course, and medical plan of care. Services: Services provided to patient in accordance with Admission requirements found in Title 42 Section 412.3 of the Code of Federal Regulations Patient History Date of Service: 08/06/20 Reason for admission: ITCHING ALL OVER History of Present Illness: MR. KELSEY IS MORBIDLY OBESE, CRIPPLED GENTLEMAN FROM FAILED KNEE SURGERY YEARS AGO, WHO IS IN BED ALL THE TIME, HAS NOT TAKEN BATH OR SHOWER FOR YEARS HIS WHEELCHAIR CAN'T GO INTO BATHROOM AND THERE IS NO ONE TO HELP, COMES WITH ITCHING ALL OVER THAT STARTED FROM R LOWER CHEST IN THE BACK. HIS HAS MANY CATS AND A DOG. HE HAS BEEN TREATED FOR SCABIES, PSORIASIS IN THE PAST. Allergies meperidine HCl [From Demerol] Allergy (Severe, Verified 11/17/18 00:49) Anaphylaxis metformin Allergy (Intermediate, Verified 11/17/18 00:49) Anaphylaxis Clindamycin Allergy (Uncoded 11/17/18 00:49) Unknown Home Medications: Hum Insulin NPH/Reg Insulin Hm [Humulin 70-30 Pen] 55 units SQ DAILY AT SUPPER 10/04/13 Hum Insulin NPH/Reg Insulin Hm [Humulin 70-30 Pen] 60 units SQ BREAKFAST 10/04/13 Venlafaxine HCl [Effexor XR] 300 mg PO BEDTIME 10/04/13 Hydromorphone [Dilaudid*] 8 mg PO BIDP PRN 10/30/14 Tizanidine [Zanaflex*] 4 mg PO BID 06/12/18 ALPRAZolam [Alprazolam] 0.25 mg PO DAILY PRN #30 tablet 06/13/18 hydrOXYzine HCL [Atarax*] 1 tab PO BID PRN 08/05/20 - Past Medical/Surgical History Has patient received pneumonia vaccine in the past: No Diabetic: Yes -: IDDM -: ANXIETY -: AFIB -: Osteoarthritis -: Pancreatitis -: Lymphedema -: 3 foot surgeries -: PATRICIA knee surgery -: R shoulder surgery -: 3 back surgeries -: CHOLECYSTECTOMY - Family History Father -: Other (see notes) Notes: dementia Mother -: Heart disease - Social History Smoking Status: Never smoker Alcohol use: No CD- Drugs: No Caffeine use: No Place of Residence: Home Review of Systems 10-point ROS is otherwise unremarkable Physical Examination - Vital Signs Temperature: 96.9 F Blood Pressure: 150/74 Pulse: 99 Respirations: 20 Pulse Ox (%): 100 - Physical Exam General: Mild distress, Moderate distress, Obese HEENT: Atraumatic, PERRLA, Mucous membr. moist/pink, EOMI, Sclerae nonicteric Neck: Supple, 2+ carotid pulse no bruit, No LAD, Without JVD or thyroid abnormality Respiratory: Clear to auscultation bilaterally, Normal air movement Cardiovascular: Regular rate/rhythm, Normal S1 S2 Gastrointestinal: Normal bowel sounds, No tenderness Integumentary: No rashes, Erythema (WHOLE BACK IS ERYTHEMATOUS), Warmth Neurological: Normal gait, Normal speech, Normal strength at 5/5 x4 extr, Normal tone, Normal affect Lymphatics: No axilla or inguinal lymphadenopathy - Studies Laboratory Data (last 24 hrs) 08/05/20 15:10: PT 12.3, INR 1.04 08/05/20 15:10: WBC 13.3 H, Hgb 13.3 L, Hct 39.9, Plt Count 514 H 08/05/20 15:10: Sodium 134 L, Potassium 3.7, BUN 8, Creatinine 0.98, Glucose 269 H, Total Bilirubin 0.8, AST 22, ALT 51, Alkaline Phosphatase 448 H Assessment and Plan - Problems (Diagnosis) (1) Cellulitis of back [any part except buttock] Current Visit: Yes Status: Acute Plan: CONTINUE VANCOMYCIN STOP ZOSYN HE COULD HAVE MRSA RELATED INFECTION SKIN IS ANGRY ENOUGH. (2) Psoriasiform dermatitis Current Visit: Yes Status: Acute Plan: CHRONIC ISSUES. 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 LAST TIME HE CAME TO OFFICE, HE SLED DOWN FROM CAR TO FLOOR HE COULD NOT MANAGE HIS WHEELCHAIR. ALSO CAN'T HANDLE HIM. BOTH ARE OBESE. (3) H/O knee surgery Current Visit: Yes Status: Acute Plan: HE HAS COMPLICATED KNEE SURGERY. I HOPE ADA CAN HELP HIM FIX HIS BATHROOM. MAY HE HH CAN. HE NEEDS TO TAKE A BATH. HE HAS FILTHY SKIN AND SO PRONE TO INFECTIONS. (4) Diabetes mellitus Onset Date: 10/31/14 Current Visit: No Status: Chronic Plan: NEVER CONTROLLED. NEVER IS ABLE TO CONTROL DIET. EATS CARBS AND FATS. Qualifiers: Diabetes mellitus type: type 2 - Advance Directives Does patient have a Living Will: No Does patient have a Durable POA for Healthcare: No
[2020-08-06] MEDS: ALPRAZOLAM 0.25 MG TABLET PO PRN ×2 (10:20→21:24)
[2020-08-06 11:23] LABS: MPV 6.3 fL (7.6-11.3)
[2020-08-06 11:46] LABS: Platelet Estimate ADEQ
[2020-08-06] MEDS: VANCOMYCIN 1.75 GM in NA CHLORIDE 0.9% 500 ML IVPB SCH (12:13)
[2020-08-06] MEDS: VENLAFAXINE HCL XR 75 MG CAP PO SCH (21:24)
[2020-08-07] MEDS: hydrOXYzine HCL 25 MG TAB PO PRN (02:56)
[2020-08-07] MEDS: NA CHLORIDE 0.9% 1,000 ML IV SCH (03:27)
[2020-08-07] MEDS: HYDROMORPHONE ORAL 4 MG TAB PO PRN ×2 (06:45→22:04)
[2020-08-07] MEDS: VANCOMYCIN 1.75 GM in NA CHLORIDE 0.9% 500 ML IVPB SCH (06:53)
[2020-08-07] MEDS: INSULIN -REGULAR HUMAN 50 UNIT/0.5 ML ML SQ SCH ×4 (07:30→20:36)
[2020-08-07] MEDS: TIZANIDINE 4 MG TABLET PO SCH ×2 (08:32→20:52)
[2020-08-07] MEDS: ENOXAPARIN 40 MG/0.4 ML SQ SCH (08:32)
[2020-08-07] MEDS: INSULIN 70/30 100 UNITS/ML SQ SCH ×2 (08:33→16:35)
[2020-08-07] MEDS: ALPRAZOLAM 0.25 MG TABLET PO PRN (08:33)
[2020-08-07] MEDS: hydrOXYzine HCL 25 MG TAB PO SCH ×2 (11:27→17:57)
[2020-08-07] MEDS: FLUCONAZOLE 100mg IVPB 100 MG/50 ML BAG IV SCH (17:57)
[2020-08-07] MEDS: VENLAFAXINE HCL XR 75 MG CAP PO SCH (20:52)
--- NOTE | 2020-08-07 20:52 | P.PN ---
Subjective Date of Service: 08/07/20 Chief Complaint: ITCHING ALL OVER Subjective: No new changes HE HAS SEVERE RASH AND ITCHING ALL OVER, MAINLY IN THE BACK. Review of Systems 10-point ROS is otherwise unremarkable General: Weakness, Malaise Cardiovascular: As per HPI Physical Examination - Vital Signs Temperature: 97.7 F Blood Pressure: 156/77 Pulse: 96 Respirations: 16 Pulse Ox (%): 100 - Physical Exam General: Alert, Obese HEENT: Atraumatic, PERRLA, EOMI Neck: Supple, JVD not distended Respiratory: Clear to auscultation bilaterally, Normal air movement Cardiovascular: Regular rate/rhythm, Normal S1 S2 Gastrointestinal: Normal bowel sounds, No tenderness Musculoskeletal: No tenderness Integumentary: Rash(es) (PSORIASIS ALL OVER. ), Other (CELLULITIS IN THE BACK. THERE MAY BE SAUD COMPONENT.) Neurological: Normal speech, Normal tone, Normal affect Lymphatics: No axilla or inguinal lymphadenopathy - Studies Medications List Reviewed: Yes Assessment And Plan - Current Problems (Diagnosis) (1) Cellulitis of back [any part except buttock] Current Visit: Yes Status: Acute Plan: CONTINUE VANCOMYCIN STOP ZOSYN HE COULD HAVE MRSA RELATED INFECTION SKIN IS ANGRY ENOUGH. ADD DIFLUCAN HE HAS NOT IMPROVED AND HAS WHITE PATCHES ALONG THE EDGES. (2) Psoriasiform dermatitis Current Visit: Yes Status: Acute Plan: CHRONIC ISSUES. 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 LAST TIME HE CAME TO OFFICE, HE SLED DOWN FROM CAR TO FLOOR HE COULD NOT MANAGE HIS WHEELCHAIR. ALSO CAN'T HANDLE HIM. BOTH ARE OBESE. (3) H/O knee surgery Current Visit: Yes Status: Acute Plan: HE HAS COMPLICATED KNEE SURGERY. I HOPE ADA CAN HELP HIM FIX HIS BATHROOM. MAY HE HH CAN. HE NEEDS TO TAKE A BATH. HE HAS FILTHY SKIN AND SO PRONE TO INFECTIONS. (4) Diabetes mellitus Onset Date: 10/31/14 Current Visit: No Status: Chronic Plan: NEVER CONTROLLED. NEVER IS ABLE TO CONTROL DIET. EATS CARBS AND FATS. Qualifiers: Diabetes mellitus type: type 2
[2020-08-08] MEDS: NA CHLORIDE 0.9% 1,000 ML IV SCH ×2 (00:44→18:03)
[2020-08-08] MEDS: hydrOXYzine HCL 25 MG TAB PO SCH ×4 (00:45→17:29)
[2020-08-08] MEDS: VANCOMYCIN 1.75 GM in NA CHLORIDE 0.9% 500 ML IVPB SCH ×2 (00:45→18:04)
[2020-08-08] MEDS: ALPRAZOLAM 0.25 MG TABLET PO PRN ×2 (02:33→08:42)
[2020-08-08 04:38] LABS: Absolute Lymphocytes (CBC) 2.5 K/uL (0.7-4.9); Basophils % 1.2 % (0-1.3); Hematocrit 34.2 % (39.6-49.0); Lymphocytes % 25.1 % (15.3-44.8); MPV 6.5 fL (7.6-11.3); RBC Red Blood Cell Count 4.27 M/uL (4.33-5.43)
[2020-08-08] MEDS: INSULIN -REGULAR HUMAN 50 UNIT/0.5 ML ML SQ SCH ×4 (07:30→21:00)
[2020-08-08] MEDS: INSULIN 70/30 100 UNITS/ML SQ SCH (08:00)
[2020-08-08] MEDS: TIZANIDINE 4 MG TABLET PO SCH ×2 (08:42→21:20)
[2020-08-08] MEDS: ENOXAPARIN 40 MG/0.4 ML SQ SCH (08:43)
--- NOTE | 2020-08-08 10:11 | EKG ---
Test Date: 2020-08-05 Test Time: 14:34:05 Story Analyst: TYE MEASUREMENT RESULTS: Intervals: Rate: 131 [place]: 152 QRSD: 80 QT: 296 QTc: 437 [place]: P: 63 [place]: 152 QRS: 45 T: 53 INTERPRETIVE STATEMENTS: Sinus tachycardia Possible Left atrial enlargement Borderline ECG Compared to ECG 07/15/2020 20:02:57 Myocardial infarct finding no longer present Electronically Signed On 08-08-20 10:07:04 CDT by Ned Allen
--- NOTE | 2020-08-08 12:41 | P.PN ---
Subjective Date of Service: 08/08/20 Chief Complaint: IMPROVED. HE HAS SEVERE RASH AND ITCHING ALL OVER, MAINLY IN THE BACK. I GAVE HIM DIFLUCAN IV FROM YESTERDAY AND TODAY HE SAYS HE IS FEELING BETTER. Review of Systems 10-point ROS is otherwise unremarkable General: Weakness Musculoskeletal: Neck Pain, Back Pain, Other (KNEE COMPLICATION FROM SURGERY. ) Physical Examination - Vital Signs Temperature: 98.1 F Blood Pressure: 139/65 Pulse: 103 Respirations: 16 Pulse Ox (%): 96 - Physical Exam General: Moderate distress, Obese HEENT: Atraumatic, PERRLA, EOMI Neck: Supple, JVD not distended Respiratory: Clear to auscultation bilaterally, Normal air movement Cardiovascular: Regular rate/rhythm, Normal S1 S2 Gastrointestinal: Normal bowel sounds, No tenderness Musculoskeletal: No tenderness Integumentary: Rash(es) (DIFFUSE SKIN RASH, WHITE,YELLOW EXUDATE FROM THE BACK.) Neurological: Normal speech, Normal tone, Normal affect Lymphatics: No axilla or inguinal lymphadenopathy - Studies Medications List Reviewed: Yes Assessment And Plan - Current Problems (Diagnosis) (1) Cellulitis of back [any part except buttock] Current Visit: Yes Status: Acute Plan: CONTINUE VANCOMYCIN STOP ZOSYN HE COULD HAVE MRSA RELATED INFECTION SKIN IS ANGRY ENOUGH. ADD DIFLUCAN HE HAS NOT IMPROVED AND HAS WHITE PATCHES ALONG THE EDGES. IT HELPED. HE IS BETTER. (2) Psoriasiform dermatitis Current Visit: Yes Status: Acute Plan: CHRONIC ISSUES. 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 LAST TIME HE CAME TO OFFICE, HE SLED DOWN FROM CAR TO FLOOR HE COULD NOT MANAGE HIS WHEELCHAIR. ALSO CAN'T HANDLE HIM. BOTH ARE OBESE. (3) H/O knee surgery Current Visit: Yes Status: Acute Plan: HE HAS COMPLICATED KNEE SURGERY. I HOPE ADA CAN HELP HIM FIX HIS BATHROOM. MAY HE HH CAN. HE NEEDS TO TAKE A BATH. HE HAS FILTHY SKIN AND SO PRONE TO INFECTIONS. (4) Diabetes mellitus Onset Date: 10/31/14 Current Visit: No Status: Chronic Plan: NEVER CONTROLLED. NEVER IS ABLE TO CONTROL DIET. EATS CARBS AND FATS. Qualifiers: Diabetes mellitus type: type 2
[2020-08-08] MEDS ORDERED: INSULIN 70/30 100 UNITS/ML SQ SCH (17:00)
[2020-08-08] MEDS: FLUCONAZOLE 100mg IVPB 100 MG/50 ML BAG IV SCH (17:29)
[2020-08-08] MEDS: HYDROMORPHONE ORAL 4 MG TAB PO PRN (21:20)
[2020-08-08] MEDS: VENLAFAXINE HCL XR 75 MG CAP PO SCH (21:20)
[2020-08-09] MEDS: hydrOXYzine HCL 25 MG TAB PO SCH ×2 (06:00)
[2020-08-09] MEDS: INSULIN 70/30 100 UNITS/ML SQ SCH (08:00)
[2020-08-09] MEDS: ENOXAPARIN 40 MG/0.4 ML SQ SCH (08:09)
[2020-08-09] MEDS: INSULIN -REGULAR HUMAN 50 UNIT/0.5 ML ML SQ SCH (08:10)
[2020-08-09] MEDS: TIZANIDINE 4 MG TABLET PO SCH (08:10)
[2020-08-09] MEDS: ALPRAZOLAM 0.25 MG TABLET PO PRN (08:15)
[2020-08-09 09:13] VITALS: O2SAT 100
[2020-08-09 09:18] VITALS: BP 140/59; TEMP 96.9
--- NOTE | 2020-08-09 21:32 | P.DS ---
Admission Date: 08/05/20 Discharge Date: 08/09/20 Disposition: ROUTINE DISCHARGE Reason for Admission: IMPROVED. - Problems (1) Cellulitis of back [any part except buttock] Status: Acute (2) Psoriasiform dermatitis Status: Acute (3) H/O knee surgery Status: Acute (4) Diabetes mellitus Onset Date: 10/31/14 Status: Chronic Qualifiers: Diabetes mellitus type: type 2 Brief History of Present Illness: MR. KELSEY IS MORBIDLY OBESE, CRIPPLED GENTLEMAN FROM FAILED KNEE SURGERY YEARS AGO, WHO IS IN BED ALL THE TIME, HAS NOT TAKEN BATH OR SHOWER FOR YEARS HIS WHEELCHAIR CAN'T GO INTO BATHROOM AND THERE IS NO ONE TO HELP, COMES WITH ITCHING ALL OVER THAT STARTED FROM R LOWER CHEST IN THE BACK. HIS HAS MANY CATS AND A DOG. HE HAS BEEN TREATED FOR SCABIES, PSORIASIS IN THE PAST. Hospital Course: FRANCISCO IS AN OBESE, DIABETIC WHO IS CRIPPLED FOR YEARS SINCE COMPLICATED KNEE SURGERY. HE CAN'T GO TO HIS BATHROOM AND HAS NOT TAKEN BATH OR SHOWER FOR YEARS. NOW HIS SKIN IS IN VERY POOR CONDITION. HIS WHOLE BACK WAS ERYTHEMATOUS AND DID NOT RESPOND TO VANCOMYCIN OR ZOSYN. I SAW WHITE DISCHARGE IN A DAY OR SO. I CHANGED TO DIFLUCAN AND HE DID BETTER. HE WILL GO HOME ON DIFULCAN. I ALSO ASKE [employer] TO HELP HIM WITH HANDICAP BATHROOM. CALL [facility] FOR HUMANITY FOR HIM. Vital Signs/Physical Exam: Temp Pulse Resp BP Pulse Ox 96.9 F 78 16 140/59 L 100 08/09/20 08:00 08/09/20 08:00 08/09/20 08:00 08/09/20 08:00 08/09/20 08:00 General: Alert, In no apparent distress, Mild distress, Moderate distress, Obese HEENT: Atraumatic, PERRLA, EOMI Neck: Supple, JVD not distended Respiratory: Clear to auscultation bilaterally, Normal air movement Cardiovascular: Regular rate/rhythm, Normal S1 S2 Gastrointestinal: Normal bowel sounds, No tenderness Musculoskeletal: No tenderness Integumentary: No rashes, Rash(es) Neurological: Normal speech, Normal tone, Normal affect Lymphatics: No axilla or inguinal lymphadenopathy Laboratory Data at Discharge: WBC 10.1 K/uL (4.3-10.9) 08/08/20 03:37 Hgb 11.3 g/dL (13.6-17.9) L 08/08/20 03:37 Hct 34.2 % (39.6-49.0) L 08/08/20 03:37 Plt Count Cancelled 08/09/20 10:15 PT 12.3 SECONDS (9.5-12.5) 08/05/20 15:10 INR 1.04 08/05/20 15:10 Sodium 138 mmol/L (136-145) 08/06/20 05:56 Potassium 3.8 mmol/L (3.5-5.1) 08/06/20 05:56 BUN 6 mg/dL (7-18) L 08/06/20 05:56 Creatinine 0.88 mg/dL (0.55-1.3) 08/08/20 18:12 Glucose 208 mg/dL (74-106) H 08/06/20 05:56 Total Bilirubin 0.8 mg/dL (0.2-1.0) 08/05/20 15:10 AST 22 U/L (15-37) 08/05/20 15:10 ALT 51 U/L (12-78) 08/05/20 15:10 Alkaline Phosphatase 448 U/L (45-117) H 08/05/20 15:10 Home Medications: Hum Insulin NPH/Reg Insulin Hm [Humulin 70-30 Pen] 55 units SQ DAILY AT SUPPER 10/04/13 Hum Insulin NPH/Reg Insulin Hm [Humulin 70-30 Pen] 60 units SQ BREAKFAST 10/04/13 Venlafaxine HCl [Effexor XR] 300 mg PO BEDTIME 10/04/13 Hydromorphone [Dilaudid*] 8 mg PO BIDP PRN 10/30/14 Tizanidine [Zanaflex*] 4 mg PO BID 06/12/18 ALPRAZolam [Alprazolam] 0.25 mg PO DAILY PRN #30 tablet 06/13/18 Fluconazole [Diflucan] 100 mg PO DAILY 7 Days #7 tablet 08/09/20 hydrOXYzine HCL [Atarax] 25 mg PO BID 30 Days #60 tab 08/09/20 New Medications: hydrOXYzine HCL [Atarax] 25 mg PO BID 30 Days #60 tab Fluconazole [Diflucan] 100 mg PO DAILY 7 Days #7 tablet Followup: Isai Snow MD [ACTIVE - CAN ADMIT] - Unknown,U [Primary Care Provider] -
== END 2020-08-09 09:33 | disposition home or self-care (01) | DRG 603 ==
LOC: ER 14:22 → 2ND 18:18
PROVIDERS: ADMIT Internal Medicine; ATTEND Internal Medicine
DX: L03.312 Cellulitis of back [any part except buttock and flank] (principal); I10 Essential (primary) hypertension; E11.9 Type 2 diabetes mellitus without complications; L30.8 Other specified dermatitis; E66.01 Morbid (severe) obesity due to excess calories; Z68.31 Body mass index [BMI] 31.0-31.9, adult; Z88.1 Allergy status to other antibiotic agents; Z90.49 Acquired absence of other specified parts of digestive tract; Z88.8 Allergy status to other drugs, medicaments and biological substances; Z79.899 Other long term (current) drug therapy; Z88.5 Allergy status to narcotic agent; Z79.4 Long term (current) use of insulin; Z20.828 Contact with and (suspected) exposure to other viral communicable diseases
CPT/HCPCS: 36415; 71045; 80048; 80076; 80202; 81015; 82550; 82565; 82947; 83605; 84145; 84484; 85025; 85049; 85610; 87040; 87086; 87088; 93005; 99285; J1200; J1450; J1650; J1815; J2270; J2405; J2543; J3370; J7030; J7040; J7050; U0002

== ENCOUNTER 2020-08-20 16:01 | Emergency (ER) | payer OTHER ==
[2020-08-20 16:46] LABS: Absolute Lymphocytes (CBC) 1.3 K/uL (0.7-4.9); Basophils % 0.4 % (0-1.3); Hematocrit 41.2 % (39.6-49.0); Lymphocytes % 11.4 % (15.3-44.8); MPV 6.3 fL (7.6-11.3); RBC Red Blood Cell Count 5.21 M/uL (4.33-5.43)
[2020-08-20 16:47] LABS: Protime INR 1.12
[2020-08-20 17:02] LABS: ALT/SGPT 51 U/L (12-78); AST/SGOT 56 U/L (15-37); Albumin 2.3 g/dL (3.4-5.0); Alkaline Phosphatase 334 U/L (45-117); BUN Blood Urea Nitrogen 10 mg/dL (7-18); Bicarbonate 31 mmol/L (21-32); Bilirubin Direct 0.4 mg/dL (0-0.2); Bilirubin Total 0.8 mg/dL (0.2-1.0); CKMB Creatine Kinase MB < 1.0 ng/mL (0.3-3.6); Creatine Phosphokinase 31 U/L (39-308); Glucose Level 286 mg/dL (74-106); Lipase 15 U/L (73-393); Magnesium 2.1 mg/dL (1.8-2.4); NT PRO-BNP 275 pg/mL (<125); Potassium 4.1 mmol/L (3.5-5.1); Protein, Total 6.8 g/dL (6.4-8.2); Sodium Level 138 mmol/L (136-145); Troponin (Emerg Dept Use Only) < 0.02 ng/mL (0.0-0.045)
[2020-08-20] MEDS ORDERED: NA CHLORIDE 0.9% 2,000 ML ONE ×2 (18:15→21:10)
--- NOTE | 2020-08-20 18:24 | ER ---
Nurse's Notes [facility] Name: Kiel Ngo Age: 69 yrs Sex: Male : 1950 Arrival Date: 08/20/2020 Time: 16:09 Bed 19 Private MD: Diagnosis: Cellulitis and acute lymphangitis of trunk;Dermatitis, unspecified;Tachycardia, unspecified;Type 1 diabetes mellitus;Severe sepsis without septic shock Presentation: 08/20 16:09 Chief complaint: EMS states: Coffee colored urine and decreased urination x 2 days. hb Diffuse rash noted at triage, pt reports it is untreated scabies. Coronavirus screen: At this time, the client does not indicate any symptoms associated with coronavirus-19. Ebola Screen: No symptoms or risks identified at this time. Initial Sepsis Screen: Does the patient meet any 2 criteria? HR > 90 bpm. No. Patient's initial sepsis screen is negative. Does the patient have a suspected source of infection? No. Patient's initial sepsis screen is negative. Risk Assessment: Do you want to hurt yourself or someone else? Patient reports no desire to harm self or others. Onset of symptoms was August 19, 2020. 16:09 Method Of Arrival: EMS: [facility] hb 16:09 Acuity: JOZEF 2 hb Historical: - Allergies: 16:11 Demerol; hb 16:11 metformin; hb - PMHx: 16:56 Atrial Fib; Lymphadema; Hypertension; Diabetes - IDDM; Chronic pain; psoriasis; ll1 - PSHx: 16:56 Pain pump- Dilaudid; Foot surgery; ll1 - Immunization history:: Flu vaccine is up to date. - Social history:: Smoking status: Patient denies any tobacco usage or history of. - Family history:: not pertinent. Screenin:00 Abuse screen: Denies threats or abuse. Nutritional screening: No deficits noted. ll1 Tuberculosis screening: No symptoms or risk factors identified. Fall Risk IV access (20 points). Ambulatory Aid- Crutches/Cane/Walker (15 pts). Gait- Weak (10 pts.). Total Chow Fall Scale indicates High Risk Score (45 or more points). Fall prevention measures have been instituted. Side Rails Up X 2 Frequent Obs/Assessments Occuring As available patient and family educated on Fall Prevention Program and Strategies. Assessment: 16:58 General: Appears uncomfortable, Behavior is calm, cooperative, appropriate for age. ll1 Pain: Complains of pain in buttocks Quality of pain is described as aching, Pain began weeks ago. Neuro: No deficits noted. Cardiovascular: No deficits noted. Respiratory: No deficits noted. GI: No deficits noted. Derm: Rash noted that is red, on bilateral rashes to arms/chest off/on for months. Musculoskeletal: Circulation, motion, and sensation intact. Capillary refill < 3 seconds, Reports pain in buttocks pain. 17:50 Reassessment: Central line setup ordered by Dr. Banerjee. iw 18:00 Reassessment: Patient and/or family updated on plan of care and expected duration. Pain ll1 level reassessed. Patient is alert, oriented x 3, equal unlabored respirations, skin warm/dry/pink. 19:00 Reassessment: Patient and/or family updated on plan of care and expected duration. Pain ll1 level reassessed. Patient is alert, oriented x 3, equal unlabored respirations, skin warm/dry/pink. 20:00 Reassessment: Patient appears in no apparent distress at this time. Patient and/or jb4 family updated on plan of care and expected duration. Pain level reassessed. Patient is alert, oriented x 3, equal unlabored respirations, skin warm/dry/pink. 21:00 Reassessment: Patient appears in no apparent distress at this time. Patient and/or jb4 family updated on plan of care and expected duration. Pain level reassessed. Patient is alert, oriented x 3, equal unlabored respirations, skin warm/dry/pink. 22:00 Reassessment: Patient appears in no apparent distress at this time. Patient and/or jb4 family updated on plan of care and expected duration. Pain level reassessed. Patient is alert, oriented x 3, equal unlabored respirations, skin warm/dry/pink. 23:00 Reassessment: Patient appears in no apparent distress at this time. Patient and/or jb4 family updated on plan of care and expected duration. Pain level reassessed. Patient is alert, oriented x 3, equal unlabored respirations, skin warm/dry/pink. 23:45 Reassessment: Patient appears in no apparent distress at this time. Patient and/or jb4 family updated on plan of care and expected duration. Pain level reassessed. Patient is alert, oriented x 3, equal unlabored respirations, skin warm/dry/pink. Pt reports increased pain prior to transfer, ER physician notified, no new orders at this time. PT transferred. Vital Signs: 16:09 BP 168 / 98; Pulse 133; Resp 15; Temp 98.5; Pulse Ox 93% on R/A; Pain 10/10; hb 17:01 BP 166 / 85; Pulse 118; Resp 18; Pulse Ox 93% on 2 lpm NC; ll1 18:47 Weight 102.06 kg; ll1 19:10 BP 156 / 82; Pulse 120; Resp 18; Pulse Ox 92% on 2 lpm NC; ll1 20:15 BP 158 / 82; Pulse 115; Resp 16; Pulse Ox 98% on 4 lpm NC; jb4 21:15 BP 144 / 73; Pulse 109; Resp 15; Pulse Ox 100% on 4 lpm NC; jb4 21:45 BP 124 / 70; Pulse 100; Resp 16; Pulse Ox 97% on 4 lpm NC; jb4 22:45 BP 142 / 75; Pulse 96; Resp 17; Pulse Ox 95% on 4 lpm NC; jb4 23:30 BP 142 / 64; Pulse 95; Resp 16; Pulse Ox 96% on 4 lpm NC; jb4 20:15 PT states he is on 4L NC at home. jb4 Vitals: 19:10 Cardiac Rhythm Assessment Atrial fibrillation. ll1 ED Course: 16:09 Patient arrived in ED. hb 16:11 Triage completed. hb 16:11 Arm band placed on. hb 16:16 Stu Banerjee MD is Attending Physician. chetan 16:22 Tristian Mccormack, DIEGO is Primary Nurse. ll1 16:45 Radiology exam delayed due to IV insertion attempt and/or patient not having mw3 appropriate IV at this time. PT WANTS PAIN MEDS BEFORE DOING CT EXAM. 16:56 Placed in gown. Bed in low position. Side rails up X2. retail supervisor on. Pulse ox on. ll1 NIBP on. Notified the admitting physician of 198 ml in bladder scan before urination. 16:57 Missed attempt(s): 20 gauge in left antecubital area. Bleeding controlled, band aid ll1 applied, catheter tip intact. 16:57 Missed attempt(s): 22 gauge in left antecubital area. Bleeding controlled, band aid ll1 applied, catheter tip intact. 17:06 Radiology exam delayed due to IV insertion attempt and/or patient not having mw3 appropriate IV at this time. pain meds. pt is hard stick and waiting for someone else to start iv. 18:30 Dr. Banerjee initiated transfer at [facility] with Amanda Baron. tt3 19:09 XRAY Chest (1 view) In Process Unspecified. EDMS 19:11 Inserted central line 3-lumen R femoral. ll1 19:13 Primary Nurse role handed off by Tristian Mccormack, RN jb4 19:13 Ankit Hall, RN is Primary Nurse. jb4 19:40 Mikey Chauhan gave admin approval. The accepting physician is Dr. Grajeda. The pt is going tt3 to room [address] [place] [address]. Report to be called to [phone]. 20:40 CT Aorta for Dissection In Process Unspecified. EDMS 23:45 No provider procedures requiring assistance completed. Patient transferred, IV remains jb4 in place. Administered Medications: Discontinued: NS 0.9% 1000 ml IV at 75 ml/hr continuous 18:08 Drug: NS 0.9% 1000 ml Route: IV; Rate: 75 ml/hr; Site: Other; ll1 18:41 Drug: NS 0.9% (30 ml/kg) 30 ml/kg Route: IV; Rate: bolus; Site: Other; ll1 22:00 Follow up: Response: No adverse reaction; IV Status: Completed infusion; IV Intake: jb4 3000ml 18:48 Drug: SOLU-Medrol 125 mg Route: IVP; Site: Other; ll1 19:20 Follow up: Response: No adverse reaction jb4 18:49 Drug: vancoMYCIN 1 grams Route: IVPB; Infused Over: 2 hrs; Site: Other; ll1 20:49 Follow up: Response: No adverse reaction; IV Status: Completed infusion; IV Intake: jb4 250ml 18:49 Drug: Benadryl 25 mg Route: IVP; Site: Other; ll1 19:20 Follow up: Response: No adverse reaction jb4 18:49 Drug: Pepcid 20 mg Route: IVP; Site: Other; ll1 19:20 Follow up: Response: No adverse reaction jb4 18:50 Drug: Cefepime 2 grams Route: IVPB; Rate: 200 ml/hr; Infused Over: 30 mins; Site: Other;ll1 19:20 Follow up: Response: No adverse reaction; IV Status: Completed infusion; IV Intake: jb4 100ml 18:50 Drug: Dilaudid 1 mg Route: IVP; Site: Other; 1 19:20 Follow up: Response: No adverse reaction; Pain is decreased jb4 18:50 Drug: Zofran (Ondansetron) 4 mg Route: IVP; Site: Other; ll1 19:20 Follow up: Response: No adverse reaction jb4 20:40 Drug: NS 0.9% 1000 ml Route: IV; Rate: 125 ml/hr; Site: right femoral; jb4 23:52 Follow up: Response: No adverse reaction; IV Status: Infusion continued upon transfer jb4 Intake: 19:20 IV: 100ml; Total: 100ml. jb4 20:49 IV: 250ml; Total: 350ml. jb4 22:00 IV: 3000ml; Total: 3350ml. jb4 Outcome: 18:24 ER care complete, transfer ordered by MD. benton 23:45 Transferred by ground EMS to [facility], Transfer form jb4 completed. X-rays sent w/ patient. 23:45 Condition: stable 23:45 Discharge instructions given to patient, family, Instructed on the need for transfer, Demonstrated understanding of instructions. 23:55 Patient left the ED. jb4 Signatures: Dispatcher [employer] EDMS Stu Banerjee MD MD cha Williams, Irene, RN RN iw Baxter, Heather, RN RN hb Bryson, James, RN RN jb4 Sarah Bar 3 Tristian Mccormack RN RN ll1 Aguilar Banegas tt3 Corrections: (The following items were deleted from the chart) 21:39 20:15 BP 129 / 64; Pulse 69bpm; Resp 16bpm; Pulse Ox 99% 4 lpm Nasal Cannula; PT states jb4 he is on 4L NC at home.; jb4 21:39 21:15 BP 112 / 85; Pulse 61bpm; Resp 15bpm; Pulse Ox 100% 4 lpm Nasal Cannula; jb4 jb4
--- NOTE | 2020-08-20 18:24 | EDPHYS ---
Physician Documentation [facility] Name: Kiel Ngo Age: 69 yrs Sex: Male : 1950 Arrival Date: 08/20/2020 Time: 16:09 Bed 19 Private MD: ED Physician Stu Banerjee HPI: 08/20 18:15 This 69 yrs old Male presents to ER via EMS with complaints of Urinary chetan Problem. 18:15 The patient presents with cellulitis of the back, buttocks, chest, right arm and left chetan arm. Description: erythematous, swollen. Onset: The symptoms/episode began/occurred 2 week(s) ago. Possible cause(s): unknown. Associated signs and symptoms: Pertinent positives: erythema, fever, shortness of breath. The patient presents with urinary symptoms, dysuria, urinary frequency. Onset: The symptoms/episode began/occurred 5 day(s) ago. Modifying factors: The symptoms are alleviated by nothing, the symptoms are aggravated by urinating. Associated signs and symptoms: Pertinent positives: anorexia, nausea, skin flushing, near syncope. Historical: - Allergies: 16:11 Demerol; hb 16:11 metformin; hb - PMHx: 16:56 Atrial Fib; Lymphadema; Hypertension; Diabetes - IDDM; Chronic pain; psoriasis; ll1 - PSHx: 16:56 Pain pump- Dilaudid; Foot surgery; ll1 - Immunization history:: Flu vaccine is up to date. - Social history:: Smoking status: Patient denies any tobacco usage or history of. - Family history:: not pertinent. ROS: 18:15 Eyes: Negative for injury, pain, redness, and discharge, ENT: Negative for injury, chetan pain, and discharge, Neck: Negative for injury, pain, and swelling, Cardiovascular: Negative for chest pain, palpitations, and edema, Respiratory: Negative for shortness of breath, cough, wheezing, and pleuritic chest pain, Abdomen/GI: Negative for abdominal pain, nausea, vomiting, diarrhea, and constipation, Back: Negative for injury and pain, Neuro: Negative for headache, weakness, numbness, tingling, and seizure, Psych: Negative for depression, anxiety, suicide ideation, homicidal ideation, and hallucinations, Allergy/Immunology: Negative for hives, rash, and allergies, Endocrine: Negative for neck swelling, polydipsia, polyuria, polyphagia, and marked weight changes, Hematologic/Lymphatic: Negative for swollen nodes, abnormal bleeding, and unusual bruising. 18:15 : Positive for urinary symptoms, flank pain, burning with urination, difficulty urinating. 18:15 Skin: Positive for cellulitis, erythema, rash, swelling, of the back, buttocks, right arm, left arm, right leg and left leg. Exam: 18:15 Head/Face: Normocephalic, atraumatic. Eyes: Pupils equal round and reactive to light, chetan extra-ocular motions intact. Lids and lashes normal. Conjunctiva and sclera are non-icteric and not injected. Cornea within normal limits. Periorbital areas with no swelling, redness, or edema. ENT: Nares patent. No nasal discharge, no septal abnormalities noted. Tympanic membranes are normal and external auditory canals are clear. Oropharynx with no redness, swelling, or masses, exudates, or evidence of obstruction, uvula midline. Mucous membranes moist. Neck: Trachea midline, no thyromegaly or masses palpated, and no cervical lymphadenopathy. Supple, full range of motion without nuchal rigidity, or vertebral point tenderness. No Meningismus. Chest/axilla: Normal chest wall appearance and motion. Nontender with no deformity. No lesions are appreciated. Respiratory: Lungs have equal breath sounds bilaterally, clear to auscultation and percussion. No rales, rhonchi or wheezes noted. No increased work of breathing, no retractions or nasal flaring. Abdomen/GI: Soft, non-tender, with normal bowel sounds. No distension or tympany. No guarding or rebound. No evidence of tenderness throughout. Back: No spinal tenderness. No costovertebral tenderness. Full range of motion. Psych: Awake, alert, with orientation to person, place and time. Behavior, mood, and affect are within normal limits. 18:15 Constitutional: The patient appears in obvious distress, mildly distressed. 18:15 Cardiovascular: Rhythm: regular, Pulses: Pulses are 4+ in bilateral radial, brachial, femoral, popliteal, posterior tibial and and dorsalis pedis arteries.. Heart sounds: normal, normal S1and S2, no S3 or S4, no murmur, no rub, no gallop, Edema: is not appreciated, JVD: is not appreciated. 18:15 Respiratory: the patient does not display signs of respiratory distress, Respirations: no acute changes, Breath sounds: decreased breath sounds, that are mild, that are moderate, are heard in the left posterior upper lobe, right posterior upper lobe, left posterior lower lobe and right posterior middle lobe. 18:15 Back: pain, that is mild, of the left scapular area, right scapular area, left subscapular area, right subscapular area, thoracic area, lumbar area, left low back, left mid back, right mid back and right low back. 18:15 Skin: Appearance: Temperature: warm, hot, flushing, that are moderate, that are marked, abscess, not appreciated, cellulitis, that is moderate, induration, is not appreciated, injury, is not appreciated. 18:37 ECG was reviewed by the Attending Physician. chetan Vital Signs: 16:09 BP 168 / 98; Pulse 133; Resp 15; Temp 98.5; Pulse Ox 93% on R/A; Pain 10/10; hb 17:01 BP 166 / 85; Pulse 118; Resp 18; Pulse Ox 93% on 2 lpm NC; ll1 18:47 Weight 102.06 kg; ll1 19:10 BP 156 / 82; Pulse 120; Resp 18; Pulse Ox 92% on 2 lpm NC; ll1 20:15 BP 158 / 82; Pulse 115; Resp 16; Pulse Ox 98% on 4 lpm NC; jb4 21:15 BP 144 / 73; Pulse 109; Resp 15; Pulse Ox 100% on 4 lpm NC; jb4 21:45 BP 124 / 70; Pulse 100; Resp 16; Pulse Ox 97% on 4 lpm NC; jb4 22:45 BP 142 / 75; Pulse 96; Resp 17; Pulse Ox 95% on 4 lpm NC; jb4 23:30 BP 142 / 64; Pulse 95; Resp 16; Pulse Ox 96% on 4 lpm NC; jb4 20:15 PT states he is on 4L NC at home. jb4 Procedures: 18:24 Central Line: the site was prepped with Betadine, in sterile fashion, a triple lumen chetan catheter was inserted, in the right femoral vein, in 2 attempts. placement was verified, by blood return, the site was dressed with 4X4s, the patient tolerated the procedure, well. MDM: 16:16 Patient medically screened. [facility] 18:21 Differential diagnosis: allergic reaction, cellulitis, UTI, urinary retention, chetan hyperglycemia, hypothyroidism. Data reviewed: vital signs, nurses notes, EMS record, lab test result(s), EKG, radiologic studies, CT scan, plain films. Data interpreted: residential monitor: rate is 118 beats/min, rhythm is regular, Pulse oximetry: on room air is 93 %. Test interpretation: by ED physician or midlevel provider: ECG, plain radiologic studies. Counseling: I had a detailed discussion with the patient and/or guardian regarding: the historical points, exam findings, and any diagnostic results supporting the discharge/admit diagnosis, the presence of at least one elevated blood pressure reading (>120/80) during this emergency department visit, lab results, radiology results, the need to transfer to another facility, for higher level of care, [facility] does not immediately have the required specialist. 08/20 16:18 Order name: Basic Metabolic Panel; Complete Time: 18:14 [facility] 08/20 16:18 Order name: CBC with Diff; Complete Time: 18:14 [facility] 08/20 16:18 Order name: LFT's; Complete Time: 18:14 [facility] 08/20 16:18 Order name: Magnesium; Complete Time: 18:14 [facility] 08/20 16:18 Order name: NT PRO-BNP; Complete Time: 18:14 [facility] 08/20 16:18 Order name: PT-INR; Complete Time: 18:14 [facility] 08/20 16:18 Order name: Troponin (emerg Dept Use Only); Complete Time: 18:14 [facility] 08/20 16:18 Order name: CK; Complete Time: 18:14 [facility] 08/20 16:18 Order name: Ckmb; Complete Time: 18:14 [facility] 08/20 16:18 Order name: Urine Culture [facility] 08/20 16:48 Order name: Lipase; Complete Time: 18:14 EDMS 08/20 19:22 Order name: Urine Dipstick--Ancillary (enter results); Complete Time: 20:09 tt3 08/20 19:53 Order name: Blood Culture Adult (2) [facility] 08/20 16:18 Order name: XRAY Chest (1 view); Complete Time: 20:09 [facility] 08/20 19:00 Order name: CT Aorta for Dissection [facility] 08/20 19:53 Order name: Procalcitonin [facility] 08/20 19:53 Order name: Lactate; Complete Time: 20:09 [facility] 08/20 23:12 Order name: Lactate Sepsis 2 HR Follow-up EDID 08/20 16:18 Order name: EKG; Complete Time: 16:19 [facility] 08/20 16:18 Order name: Cardiac monitoring; Complete Time: 16:23 [facility] 08/20 16:18 Order name: EKG - Nurse/Tech; Complete Time: 18:39 [facility] 08/20 16:18 Order name: IV Saline Lock; Complete Time: 16:33 [facility] 08/20 16:18 Order name: Labs collected and sent; Complete Time: 16:33 [facility] 08/20 16:18 Order name: O2 Per Protocol; Complete Time: 16:23 [facility] 08/20 16:18 Order name: O2 Sat Monitoring; Complete Time: 16:23 [facility] 08/20 16:18 Order name: Urine Dipstick-Ancillary (obtain specimen); Complete Time: 21:19 [facility] 08/20 16:18 Order name: Bladder Scanner: note pvr; Complete Time: 17:39 [facility] EC:37 Rate is 128 beats/min. Rhythm is regular. QRS [place] is Normal. [place] interval is normal. [facility] QRS interval is normal. QT interval is normal. No Q waves. T waves are Normal. No ST changes noted. Clinical impression: Sinus tachycardia. Interpreted by me. Reviewed by me. Administered Medications: Discontinued: NS 0.9% 1000 ml IV at 75 ml/hr continuous 18:08 Drug: NS 0.9% 1000 ml Route: IV; Rate: 75 ml/hr; Site: Other; [facility] 18:41 Drug: NS 0.9% (30 ml/kg) 30 ml/kg Route: IV; Rate: bolus; Site: Other; 1 22:00 Follow up: Response: No adverse reaction; IV Status: Completed infusion; IV Intake: jb4 3000ml 18:48 Drug: SOLU-Medrol 125 mg Route: IVP; Site: Other; 1 19:20 Follow up: Response: No adverse reaction jb4 18:49 Drug: vancoMYCIN 1 grams Route: IVPB; Infused Over: 2 hrs; Site: Other; [facility] 20:49 Follow up: Response: No adverse reaction; IV Status: Completed infusion; IV Intake: jb4 250ml 18:49 Drug: Benadryl 25 mg Route: IVP; Site: Other; ll1 19:20 Follow up: Response: No adverse reaction jb4 18:49 Drug: Pepcid 20 mg Route: IVP; Site: Other; ll1 19:20 Follow up: Response: No adverse reaction jb4 18:50 Drug: Cefepime 2 grams Route: IVPB; Rate: 200 ml/hr; Infused Over: 30 mins; Site: Other;ll1 19:20 Follow up: Response: No adverse reaction; IV Status: Completed infusion; IV Intake: jb4 100ml 18:50 Drug: Dilaudid 1 mg Route: IVP; Site: Other; ll1 19:20 Follow up: Response: No adverse reaction; Pain is decreased jb4 18:50 Drug: Zofran (Ondansetron) 4 mg Route: IVP; Site: Other; 1 19:20 Follow up: Response: No adverse reaction jb4 20:40 Drug: NS 0.9% 1000 ml Route: IV; Rate: 125 ml/hr; Site: right femoral; jb4 23:52 Follow up: Response: No adverse reaction; IV Status: Infusion continued upon transfer jb4 Disposition: 08/20/20 18:24 Transfer ordered to [facility]. Diagnosis are Cellulitis and acute lymphangitis of trunk, Dermatitis, unspecified, Tachycardia, unspecified, Type 1 diabetes mellitus, Severe sepsis without septic shock. - Reason for transfer: Higher level of care. - Accepting physician is to [facility]. - Condition is Fair. - Problem is new. - Symptoms have improved. Signatures: Dispatcher [employer] [facility] Stu Banerjee MD MD cha Baxter, Heather, RN RN hb Bryson, James, RN RN jb4 Tristian Mccormack RN RN ll1 Corrections: (The following items were deleted from the chart) 16:48 16:44 LIPASE+C.LAB.BRZ ordered. [facility] 20:10 18:24 08/20/2020 18:24 Transfer ordered to [facility]. Diagnosis is Cellulitis and chetan acute lymphangitis of trunk; Dermatitis, unspecified; Tachycardia, unspecified; Type 1 diabetes mellitus. Reason for transfer: Higher level of care. [facility]. Condition is Fair. Problem is new. Symptoms have improved. [facility] 20:18 16:19 Stone Protocol+CT.RAD.BRZ ordered. EDMS EDMS 23:55 20:10 08/20/2020 18:24 Transfer ordered to [facility]. Diagnosis is Cellulitis and jb4 acute lymphangitis of trunk; Dermatitis, unspecified; Tachycardia, unspecified; Type 1 diabetes mellitus; Severe sepsis without septic shock. Reason for transfer: Higher level of care. Accepting physician is to [facility]. Condition is Fair. Problem is new. Symptoms have improved. chetan
[2020-08-20] MEDS ORDERED: METHYLPREDNISOLONE 125 MG INJ ONE (18:39)
[2020-08-20] MEDS ORDERED: DIPHENHYDRAMINE 50 MG/ML VIAL ONE (18:39)
[2020-08-20] MEDS ORDERED: CEFEPIME 2 GM/200 ML BAG IV ONE (18:39)
[2020-08-20] MEDS ORDERED: VANCOMYCIN 1 GM/VIAL ONE (18:39)
[2020-08-20] MEDS ORDERED: FAMOTIDINE 20 MG/2 ML VIAL IV ONE (18:39)
[2020-08-20] MEDS ORDERED: NA CHLORIDE 0.9% 250 ML ONE (18:39)
[2020-08-20] MEDS ORDERED: HYDROMORPHONE HCL 1 MG/ML INJ ONE (19:00)
[2020-08-20] MEDS ORDERED: ONDANSETRON 4 MG/2 ML VIAL ONE (19:00)
--- NOTE | 2020-08-20 19:28 | RAD REPORT ---
EXAM DESCRIPTION: RAD - Chest Single View - 08/20/2020 7:09 pm CLINICAL HISTORY: ABDOMINAL DISTENTION Chest pain. COMPARISON: Chest Single View dated 08/05/2020; Chest Single View dated 07/15/2020; Chest Single View dated 11/17/2018; Chest Single View dated 06/23/2018 FINDINGS: Portable technique limits examination quality. The lungs are grossly clear. Elevation of right hemidiaphragm is noted. The heart is upper limit norm al in size.
[2020-08-20 19:35] LABS: Urine Blood NEGATIVE (NEG); Urine Glucose 1+ (NEG); Urine Protein TRACE (NEG); Urine Specific Gravity >1.030 (1.005-1.030); Urine pH 5.5 (5.0-7.0)
--- NOTE | 2020-08-20 21:27 | RAD REPORT ---
EXAM DESCRIPTION: CT - Angio Aorta For Dissection - 08/20/2020 8:40 pm CLINICAL HISTORY: Chest pain radiating to the back. Pain;PE;Dissection COMPARISON: No comparisons TECHNIQUE: CT angiography of the aorta was performed with MIPs. All CT scans are performed using dose optimization technique as appropriate and may include automated exposure control or mA/KV adjustment according to patient size. FINDINGS: A left aortic arch is present with normal branching pattern of the great vessels.No acute aortic finding is seen such as aneurysm, penetrating ulcer or dissection. The celiac axis, SMA, STEPHAN and renal arteries are patent. No evidence of pulmonary embolism. Linear atelectasis is present both lung bases, greater on the right. Early infiltrate in the right ba se is not excluded. The liver demonstrates no focal mass or biliary dilatation.The spleen, pancreas, adrenal glands and k idneys are within normal limits for arterial phase imaging.Benign renal cysts bilaterally. No bowel obstruction, free fluid or abscess.No pathologic enlarged lymphadenopathy identified. No fracture or worrisome bone lesion seen. IMPRESSION: No acute aortic finding is demonstrated.
[2020-08-21 00:38] VITALS: TEMP 98.5
[2020-08-21 00:49] VITALS: BP 142/64; O2SAT 96
--- NOTE | 2020-08-21 07:23 | EKG ---
Test Date: 2020-08-20 Test Time: 18:29:10 Water Plant Operator: CYNTHIA MEASUREMENT RESULTS: Intervals: Rate: 128 ND: 152 QRSD: 84 QT: 308 QTc: 449 Saline: P: 65 ND: 152 QRS: 24 T: 31 INTERPRETIVE STATEMENTS: Sinus tachycardia with occasional premature ventricular complexes Low voltage QRS Possible Inferior infarct, age undetermined Cannot rule out Anterior infarct, age undetermined Abnormal ECG Compared to ECG 08/05/2020 14:34:05 Ventricular premature complex(es) now present Low QRS voltage now present Myocardial infarct finding now present Electronically Signed On 08-21-20 07:22:26 IMPLEMENTATION LEAD by Ned Allen
== END 2020-08-20 23:55 | disposition short-term general hospital (02) ==
LOC: ER 16:01
DX: L03.319 Cellulitis of trunk, unspecified (principal); R65.20 Severe sepsis without septic shock; L03.329 Acute lymphangitis of trunk, unspecified; R00.0 Tachycardia, unspecified; L30.9 Dermatitis, unspecified; I10 Essential (primary) hypertension; I48.91 Unspecified atrial fibrillation; Z88.5 Allergy status to narcotic agent; Z88.8 Allergy status to other drugs, medicaments and biological substances
CPT/HCPCS: 96365; 96367; 96361; 93005; 87040 ×2; 87088; 85025; 87086; 80048; 36415; 83735; 82550; 85610; 80076; 83605 ×2; 81003; 84484; 82553; 83690; 84145; 83880; 71275; 74175; 71045; 96375; 99285; Q9967; J1200; J3370; J1170; J0692; J7050; J7030 ×2; J2930; J2405

== ENCOUNTER 2020-12-27 05:13 | Emergency (ER) | payer OTHER ==
--- OUTSIDE RECORDS SUMMARY | 2020-12-27 05:16 | XMS REPORT | Continuity of Care Document ---
:1950 Author Organization [facility] t Address [address] [place] [address] Care Team Providers Name Role Phone Lorraine CORTEZ Attending Clinician Singer WATTS Attending Clinician Kassie Harrison MD Attending Clinician Nilda Kauffman MD Attending Clinician Doctor Unassigned, Name Attending Clinician Unavailable Wilder VILLAREAL, K.H. Attending Clinician Eliot VILLAREAL Attending Clinician Samantha Washington MD Attending Clinician Kassie Harrison MD Admitting Clinician Kika Grajeda MD Admitting Clinician Problems This patient has no known problems. Allergies, Adverse Reactions, Alerts This patient has no known allergies or adverse reactions. Medications This patient has no known medications. Procedures This patient has no known procedures. Encounters Start End Encounter Admission Attending Care Care Encounter Source Date/Time Date/Time Type Type Clinicians Facility Department ID 2020-12-19 2020-12-19 Transition Tuan Peters [id number] 00:00:00 00:00:00 of Care Ruchi Braswell [id number] [place] [id number] 2020-12-11 2020-12-17 [facility] Paco Lacey [id number] 05:11:00 16:00:00 Encounter Rene Harrison Natty [id number] [facility] Kauffman [facility] [id number] 2020-11-11 2020-11-11 Orders Doctor BASILIA [id number] 00:00:00 00:00:00 Only Unassigned, NATTY [id number] [facility] [id number] 2020-11-07 2020-11-07 Telephone Wilder [facility] [id number] 00:00:00 00:00:00 Angi Tobin [id number] [place] [id number] [facility] [id number] [facility]9 [facility] 2020-10-30 2020-10-30 Orders Doctor CUI [id number] 00:00:00 00:00:00 Only Unassigned, NATTY [id number] [facility] [id number] 2020-09-26 2020-09-26 Telephone STONE Mccabe 1.2.840.114 [id number] 00:00:00 00:00:00 [facility] [id number] [facility] [id number] 2020-09-01 2020-09-01 Orders Doctor CUI [id number] 00:00:00 00:00:00 Only Unassigned, NATTY [id number] [facility] [id number] 2020-08-25 2020-08-25 Transition Tuan Peters [id number] 00:00:00 00:00:00 of Care Ruchi Braswell [id number] [place] [id number] 2020-08-21 2020-08-23 [facility] Ayleen Washington [id number] 01:07:00 18:35:00 Encounter Kelly Amaya [id number] [facility] [id number] Results This patient has no known results.
[2020-12-27] MEDS ORDERED: NA CHLORIDE 0.9% 1,000 ML ONE (06:42)
[2020-12-27] MEDS ORDERED: MORPHINE 2 MG/ML SYR ONE ×2 (06:42→08:10)
[2020-12-27] MEDS ORDERED: ONDANSETRON 4 MG/2 ML VIAL ONE (06:42)
[2020-12-27 06:53] LABS: Absolute Lymphocytes (CBC) 1.5 K/uL (0.7-4.9); Basophils % 0.9 % (0-1.3); Hematocrit 39.7 % (39.6-49.0); Lymphocytes % 15.4 % (15.3-44.8); MPV 6.4 fL (7.6-11.3); RBC Red Blood Cell Count 5.29 M/uL (4.33-5.43)
[2020-12-27 07:05] LABS: Protime INR 1.09
[2020-12-27 07:25] LABS: ALT/SGPT 17 U/L (12-78); AST/SGOT 9 U/L (15-37); Alkaline Phosphatase 219 U/L (45-117); BUN Blood Urea Nitrogen 7 mg/dL (7-18); Bicarbonate 28 mmol/L (21-32); Bilirubin Direct 0.2 mg/dL (0-0.2); Bilirubin Total 0.4 mg/dL (0.2-1.0); Glucose Level 240 mg/dL (74-106); Magnesium 2.3 mg/dL (1.8-2.4); NT PRO-BNP 1866 pg/mL (<125); Potassium 3.3 mmol/L (3.5-5.1); Protein, Total 7.3 g/dL (6.4-8.2); Sodium Level 138 mmol/L (136-145); Troponin (Emerg Dept Use Only) < 0.02 ng/mL (0.0-0.045)
--- NOTE | 2020-12-27 07:54 | EDPHYS ---
Physician Documentation [facility] Name: Kiel Ngo Age: 70 yrs Sex: Male : 1950 Arrival Date: 12/27/2020 Time: 05:14 Bed 19 Private MD: LAURIE Physician Stu Banerjee HPI: 12/27 06:34 This 70 yrs old Male presents to ER via EMS with complaints of Leg Pain. chetan 06:34 The patient presents with decreased range of motion, pain. The complaints affect the [facility] right leg and left leg. Context: The problem was sustained at home. Onset: The symptoms/episode began/occurred 2 day(s) ago. Modifying factors: The symptoms are alleviated by nothing. the symptoms are aggravated by nothing. Associated signs and symptoms: The patient has no apparent associated signs or symptoms. Treatment prior to arrival includes: no previous treatment. The patient has not experienced similar symptoms in the past. Historical: - Allergies: 05:20 Demerol; rr5 05:20 metformin; rr5 - Home Meds: 05:20 alprazolam 0.25 mg Oral tab [Active]; Ambien 10 mg Oral tab [Active]; Benadryl 50mg rr5 Oral [Active]; Ambien 10 mg Oral tab 1 tab once daily [Active]; Effexor XR 150 mg Oral cp24 [Active]; Humulin 70/30 55units Sub-Q at breakfast [Active]; hydromorphone 8 mg Oral tab 1 tab every 4 hours [Active]; Salicylic Acid/ Ceramide Cmb #1 [Active]; Humulin 70/30 50 units Sub-Q at supper [Active]; tizanidine 4 mg Oral cap [Active]; venlafaxine 150 mg Oral cp24 1 cap twice a day [Active]; - PMHx: 05:20 Atrial Fib; Chronic pain; Diabetes - IDDM; Hypertension; Lymphadema; psoriasis; rr5 - PSHx: 05:20 tendon repair foot; rr5 - Immunization history:: Adult Immunizations up to date. - Social history:: Smoking status: unknown. - Family history:: not pertinent. ROS: 06:34 Constitutional: Negative for fever, chills, and weight loss, Eyes: Negative for injury, chetan pain, redness, and discharge, ENT: Negative for injury, pain, and discharge, Neck: Negative for injury, pain, and swelling, Cardiovascular: Negative for chest pain, palpitations, and edema, Respiratory: Negative for shortness of breath, cough, wheezing, and pleuritic chest pain, Abdomen/GI: Negative for abdominal pain, nausea, vomiting, diarrhea, and constipation, Back: Negative for injury and pain, : Negative for injury, bleeding, discharge, and swelling, Skin: Negative for injury, rash, and discoloration, Neuro: Negative for headache, weakness, numbness, tingling, and seizure, Psych: Negative for depression, anxiety, suicide ideation, homicidal ideation, and hallucinations, Allergy/Immunology: Negative for hives, rash, and allergies, Endocrine: Negative for neck swelling, polydipsia, polyuria, polyphagia, and marked weight changes, Hematologic/Lymphatic: Negative for swollen nodes, abnormal bleeding, and unusual bruising. 06:34 MS/extremity: Positive for decreased range of motion, pain, of the right leg and left leg. Exam: 06:34 Constitutional: This is a well developed, well nourished patient who is awake, alert, chetan and in no acute distress. Head/Face: Normocephalic, atraumatic. Eyes: Pupils equal round and reactive to light, extra-ocular motions intact. Lids and lashes normal. Conjunctiva and sclera are non-icteric and not injected. Cornea within normal limits. Periorbital areas with no swelling, redness, or edema. ENT: Nares patent. No nasal discharge, no septal abnormalities noted. Tympanic membranes are normal and external auditory canals are clear. Oropharynx with no redness, swelling, or masses, exudates, or evidence of obstruction, uvula midline. Mucous membranes moist. Neck: Trachea midline, no thyromegaly or masses palpated, and no cervical lymphadenopathy. Supple, full range of motion without nuchal rigidity, or vertebral point tenderness. No Meningismus. Chest/axilla: Normal chest wall appearance and motion. Nontender with no deformity. No lesions are appreciated. Cardiovascular: Regular rate and rhythm with a normal S1 and S2. No gallops, murmurs, or rubs. Normal PMI, no JVD. No pulse deficits. Respiratory: Lungs have equal breath sounds bilaterally, clear to auscultation and percussion. No rales, rhonchi or wheezes noted. No increased work of breathing, no retractions or nasal flaring. Abdomen/GI: Soft, non-tender, with normal bowel sounds. No distension or tympany. No guarding or rebound. No evidence of tenderness throughout. Back: No spinal tenderness. No costovertebral tenderness. Full range of motion. Skin: Warm, dry with normal turgor. Normal color with no rashes, no lesions, and no evidence of cellulitis. Neuro: Awake and alert, GCS 15, oriented to person, place, time, and situation. Cranial nerves II-XII grossly intact. Motor strength 5/5 in all extremities. Sensory grossly intact. Cerebellar exam normal. Normal gait. 06:34 Musculoskeletal/extremity: ROM: limited active range of motion, limited passive range of motion, Circulation is intact in all extremities. Tingling of extremity. numbness, Compartment Syndrome exam of affected extremity: is normal. Joints: All joints appear normal with full range of motion. 06:41 ECG was reviewed by the Attending Physician. [facility] Vital Signs: 05:16 BP 152 / 84; Pulse 122; Resp 19; Temp 97.7; Pulse Ox 99% ; Weight 99.79 kg; Height 5 rr5 ft. 11 in. (180.34 cm); Pain 10/10; 06:45 BP 136 / 92; Pulse 114; Resp 18; Pulse Ox 98% ; rr5 07:34 BP 135 / 87; Pulse 107; Resp 20; Pulse Ox 97% on R/A; tw2 08:50 BP 145 / 93; Pulse 102; Resp 17; Pulse Ox 98% on R/A; tw2 05:16 Body Mass Index 30.68 (99.79 kg, 180.34 cm) rr5 MDM: 05:19 Patient medically screened. [facility] 06:38 Differential diagnosis: closed fracture, contusion, abrasion, tendonitis. Data [facility] reviewed: vital signs, nurses notes, lab test result(s), EKG, radiologic studies, plain films. Data interpreted: gambling monitor: rate is 105 beats/min, Pulse oximetry: on room air is 105 %. Test interpretation: by ED physician or midlevel provider: ECG, plain radiologic studies. Counseling: I had a detailed discussion with the patient and/or guardian regarding: the historical points, exam findings, and any diagnostic results supporting the discharge/admit diagnosis, lab results, radiology results, the need for outpatient follow up, for definitive care, 12/27 06:09 Order name: Basic Metabolic Panel [facility] 12/27 06:09 Order name: CBC with Diff; Complete Time: 07:34 [facility] 12/27 06:09 Order name: LFT's; Complete Time: 07:34 [facility] 12/27 06:09 Order name: Magnesium; Complete Time: 07:34 [facility] 12/27 06:09 Order name: NT PRO-BNP; Complete Time: 07:34 [facility] 12/27 06:09 Order name: PT-INR; Complete Time: 07:34 [facility] 12/27 06:09 Order name: Troponin (emerg Dept Use Only); Complete Time: 07:34 [facility] 12/27 06:09 Order name: XRAY Chest (1 view) [facility] 12/27 06:10 Order name: US Extremity Venous W Compression [place] [facility] 12/27 06:10 Order name: Basic Metabolic Panel; Complete Time: 07:34 EDMS 12/27 06:10 Order name: Lactate; Complete Time: 07:34 [facility] 12/27 06:09 Order name: EKG; Complete Time: 06:10 [facility] 12/27 06:09 Order name: Cardiac monitoring; Complete Time: 06:42 [facility] 12/27 06:09 Order name: EKG - Nurse/Tech; Complete Time: 06:43 [facility] 12/27 06:09 Order name: IV Saline Lock; Complete Time: 06:43 [facility] 12/27 06:09 Order name: Labs collected and sent; Complete Time: 06:43 [facility] 12/27 06:09 Order name: O2 Per Protocol; Complete Time: 06:43 [facility] 12/27 06:09 Order name: O2 Sat Monitoring; Complete Time: 06:43 [facility] EC:41 Rate is 94 beats/min. Rhythm is regular. QRS [place] is Normal. [place] interval is normal. QRS chetan interval is normal. QT interval is prolonged at 412 msec. No Q waves. T waves are Normal. No ST changes noted. Clinical impression: NSR w/ Non-specific ST/T Changes and No evidence of ischemia. Interpreted by me. Reviewed by me. Administered Medications: 06:40 Drug: NS 0.9% 1000 ml Route: IV; Rate: 125 ml/hr; Site: right forearm; rr5 06:42 Drug: Zofran (Ondansetron) 4 mg Route: IVP; Site: right forearm; rr5 08:02 Follow up: Response: No adverse reaction tw2 06:43 Drug: morphine 2 mg Route: IVP; Site: right forearm; rr5 07:48 Drug: Potassium Effervescent Tablet 25 mEq Route: PO; tw2 08:02 Follow up: Response: No adverse reaction tw2 08:02 Drug: morphine 2 mg {Note: rass 0.} Route: IVP; Site: right antecubital; tw2 08:27 Follow up: Response: No adverse reaction; Pain is decreased; RASS: Alert and Calm (0) tw2 Disposition: 12/27/20 07:53 Discharged to Home. Impression: Pain in left leg, Pain in right leg, Hypokalemia, Type 1 diabetes mellitus, Venous insufficiency (chronic) (peripheral). - Condition is Stable. - Discharge Instructions: Potassium Content of Foods, Musculoskeletal Pain, Pain Without a Known Cause, Diabetes Mellitus and Food, Hypokalemia, Type 1 Diabetes Mellitus, Self Care, Adult, Type 1 Diabetes Mellitus, Diagnosis, Adult, [id number]. - Prescriptions for Tylenol- Codeine #3 300-30 mg Oral Tablet - take 2 tablets by ORAL route every 4-6 hours As needed; 15 tablet. - Medication Reconciliation Form, Thank You Letter, Antibiotic Education, Prescription Opioid Use, SBAR form form. - Follow up: Private Physician; When: 2 - 3 days; Reason: Recheck today's complaints, Continuance of care, Re-evaluation by your physician. Follow up: Madhu Francois DO; When: 2 - 3 days; Reason: Recheck today's complaints, Continuance of care, Re-evaluation by your physician. - Problem is new. - Symptoms have improved. Signatures: Dispatcher [employer] EDMS Stu Banerjee MD MD cha Wise, Tara RN RN tw2 Pritesh Lopez RN RN rr5 Corrections: (The following items were deleted from the chart) 07:56 07:53 12/27/2020 07:53 Discharged to Home. Impression: Pain in left leg; Pain in right chetan leg. Condition is Stable. Forms are Medication Reconciliation Form, Thank You Letter, Antibiotic Education, Prescription Opioid Use. Follow up: Private Physician; When: 2 - 3 days; Reason: Recheck today's complaints, Continuance of care, Re-evaluation by your physician. Follow up: Madhu Francois; When: 2 - 3 days; Reason: Recheck today's complaints, Continuance of care, Re-evaluation by your physician. Problem is new. Symptoms have improved. [facility] 08:58 07:56 12/27/2020 07:53 Discharged to Home. Impression: Pain in left leg; Pain in right tw2 leg; Hypokalemia; Type 1 diabetes mellitus; Venous insufficiency (chronic) (peripheral). Condition is Stable. Discharge Instructions: Musculoskeletal Pain, Pain Without a Known Cause, Hypokalemia. Prescriptions for Tylenol-Codeine #3 300-30 mg Oral Tablet - take 2 tablets by ORAL route every 4-6 hours As needed; 15 tablet. and Forms are Medication Reconciliation Form, Thank You Letter, Antibiotic Education, Prescription Opioid Use. Follow up: Private Physician; When: 2 - 3 days; Reason: Recheck today's complaints, Continuance of care, Re-evaluation by your physician. Follow up: Madhu Francois; When: 2 - 3 days; Reason: Recheck today's complaints, Continuance of care, Re-evaluation by your physician. Problem is new. Symptoms have improved. [facility]
--- NOTE | 2020-12-27 07:54 | ER ---
Nurse's Notes [facility] Name: Kiel Ngo Age: 70 yrs Sex: Male : 1950 Arrival Date: 12/27/2020 Time: 05:14 Bed 19 Private MD: Diagnosis: Pain in left leg;Pain in right leg;Hypokalemia;Type 1 diabetes mellitus;Venous insufficiency (chronic) (peripheral) Presentation: 12/27 05:16 Chief complaint: EMS states: call made for a complaint of pain on both feet, history of rr5 surgery tendon repair years ago. bed bound since 1999. feels nauseated because of the pain, patient stated he is out of pain medication. Coronavirus screen: Client denies travel out of the [place] in the last 14 days. At this time, the client does not indicate any symptoms associated with coronavirus-19. Ebola Screen: Patient negative for fever greater than or equal to 101.5 degrees Fahrenheit, and additional compatible Ebola Virus Disease symptoms Patient denies exposure to infectious person. Patient denies travel to an Ebola-affected area in the 21 days before illness onset. Initial Sepsis Screen: Does the patient meet any 2 criteria? HR > 90 bpm. No. Patient's initial sepsis screen is negative. Does the patient have a suspected source of infection? No. Patient's initial sepsis screen is negative. Risk Assessment: Do you want to hurt yourself or someone else? Patient reports no desire to harm self or others. Onset of symptoms was December 25, 2020. 05:16 Method Of Arrival: EMS: [facility] rr5 05:16 Acuity: JOZEF 3 rr5 Historical: - Allergies: 05:20 Demerol; rr5 05:20 metformin; rr5 - Home Meds: 05:20 alprazolam 0.25 mg Oral tab [Active]; Ambien 10 mg Oral tab [Active]; Benadryl 50mg rr5 Oral [Active]; Ambien 10 mg Oral tab 1 tab once daily [Active]; Effexor XR 150 mg Oral cp24 [Active]; Humulin 70/30 55units Sub-Q at breakfast [Active]; hydromorphone 8 mg Oral tab 1 tab every 4 hours [Active]; Salicylic Acid/ Ceramide Cmb #1 [Active]; Humulin 70/30 50 units Sub-Q at supper [Active]; tizanidine 4 mg Oral cap [Active]; venlafaxine 150 mg Oral cp24 1 cap twice a day [Active]; - PMHx: 05:20 Atrial Fib; Chronic pain; Diabetes - IDDM; Hypertension; Lymphadema; psoriasis; rr5 - PSHx: 05:20 tendon repair foot; rr5 - Immunization history:: Adult Immunizations up to date. - Social history:: Smoking status: unknown. - Family history:: not pertinent. Screenin:44 Abuse screen: Denies threats or abuse. Denies injuries from another. Nutritional rr5 screening: No deficits noted. Tuberculosis screening: No symptoms or risk factors identified. Fall Risk Secondary diagnosis (15 points) impaired mobility, IV access (20 points). Gait- Impaired (20 pts.). Total Chow Fall Scale indicates High Risk Score (45 or more points). Fall prevention measures have been instituted. Side Rails Up X 2 Placed Close to Nursing Station Frequent Obs/Assessments Occuring As available patient and family educated on Fall Prevention Program and Strategies. Assessment: 06:00 General: Appears in no apparent distress. comfortable, Behavior is calm, cooperative, rr5 appropriate for age. 06:00 Pain: Complains of pain in right foot, left foot, right leg and left leg Pain currently rr5 is 10 out of 10 on a pain scale. Quality of pain is described as aching, Pain began gradually, Is intermittent. Neuro: Level of Consciousness is awake, alert, obeys commands, Oriented to person, place, time, situation. Cardiovascular: Capillary refill < 3 seconds Patient's skin is warm and dry. Respiratory: Airway is patent Respiratory effort is even, unlabored, Respiratory pattern is regular, symmetrical. GI: No signs and/or symptoms were reported involving the gastrointestinal system. : No signs and/or symptoms were reported regarding the genitourinary system. EENT: No signs and/or symptoms were reported regarding the EENT system. Derm: Skin is intact, Skin temperature is warm Rash noted that is red, on chest, abdomen and right arm. Musculoskeletal: Capillary refill < 3 seconds. 07:34 Reassessment: Patient appears in no apparent distress at this time. Patient and/or tw2 family updated on plan of care and expected duration. Pain level reassessed. Patient is alert, oriented x 3, equal unlabored respirations, skin warm/dry/pink. 08:51 Reassessment: Patient appears in no apparent distress at this time. Patient and/or tw2 family updated on plan of care and expected duration. Pain level reassessed. Patient is alert, oriented x 3, equal unlabored respirations, skin warm/dry/pink. 08:56 Reassessment: Patient appears in no apparent distress at this time. Patient and/or tw2 family updated on plan of care and expected duration. Pain level reassessed. Patient is alert, oriented x 3, equal unlabored respirations, skin warm/dry/pink. Vital Signs: 05:16 BP 152 / 84; Pulse 122; Resp 19; Temp 97.7; Pulse Ox 99% ; Weight 99.79 kg; Height 5 rr5 ft. 11 in. (180.34 cm); Pain 10/10; 06:45 BP 136 / 92; Pulse 114; Resp 18; Pulse Ox 98% ; rr5 07:34 BP 135 / 87; Pulse 107; Resp 20; Pulse Ox 97% on R/A; tw2 08:50 BP 145 / 93; Pulse 102; Resp 17; Pulse Ox 98% on R/A; tw2 05:16 Body Mass Index 30.68 (99.79 kg, 180.34 cm) rr5 ED Course: 05:14 Patient arrived in ED. cl3 05:16 Pritesh Lopez, RN is Primary Nurse. rr5 05:19 Triage completed. rr5 05:19 Stu Banerjee MD is Attending Physician. chetan 06:10 Patient has correct armband on for positive identification. Bed in low position. Call rr5 light in reach. Side rails up X2. surveillance system monitor on. Pulse ox on. Sitter at bedside. 06:10 Arm band placed on right wrist. rr5 06:40 Inserted saline lock: 22 gauge in right forearm, using aseptic technique. Blood rr5 collected. 06:45 EKG done, by ED staff, reviewed by Stu Banerjee MD. rr5 06:53 XRAY Chest (1 view) In Process Unspecified. EDMS 07:00 ultrasound at bedside. rr5 07:03 Primary Nurse role handed off by Pritesh Lopez, RN tw2 07:03 Kortney Franco RN is Primary Nurse. tw2 07:29 US Extremity Venous W Compression [place] In Process Unspecified. EDAL 07:52 Madhu Francois DO is Referral Physician. chetan 08:04 Awaiting transportation, Awaiting: prior to discharge as pt is bedbound. tw2 08:51 No provider procedures requiring assistance completed. IV discontinued, intact, tw2 bleeding controlled, No redness/swelling at site. Pressure dressing applied. Administered Medications: 06:40 Drug: NS 0.9% 1000 ml Route: IV; Rate: 125 ml/hr; Site: right forearm; rr5 06:42 Drug: Zofran (Ondansetron) 4 mg Route: IVP; Site: right forearm; rr5 08:02 Follow up: Response: No adverse reaction tw2 06:43 Drug: morphine 2 mg Route: IVP; Site: right forearm; rr5 07:48 Drug: Potassium Effervescent Tablet 25 mEq Route: PO; tw2 08:02 Follow up: Response: No adverse reaction tw2 08:02 Drug: morphine 2 mg {Note: rass 0.} Route: IVP; Site: right antecubital; tw2 08:27 Follow up: Response: No adverse reaction; Pain is decreased; RASS: Alert and Calm (0) tw2 Outcome: 07:53 Discharge ordered by . chetan 08:53 Discharged to home via ambulance. tw2 08:53 Condition: stable 08:53 Discharge instructions given to patient, Instructed on discharge instructions, follow up and referral plans. Demonstrated understanding of instructions, follow-up care. 08:57 Instructed on no drinking with medication, no driving heavy equipment, medication tw2 usage, Demonstrated understanding of medications, Prescriptions given X 1. 08:58 Patient left the ED. tw2 Signatures: Dispatcher [employer] EDAL Stu Banerjee MD MD cha Wise, Tara, RN RN tw2 Pritesh Lopez RN RN rr5 Angel Mccormack cl3 Corrections: (The following items were deleted from the chart) 07:38 07:34 Reassessment: Patient appears in no apparent distress at this time. Patient tw2 and/or family updated on plan of care and expected duration. Pain level reassessed. Patient is alert, oriented x 3, equal unlabored respirations, skin warm/dry/pink. pt c/o "sore throat and a bit of a headache", pt educated that hospitalist is expected by shortly and we will go over poc and pain soon, pt agreeable and pleasant tw2
[2020-12-27] MEDS ORDERED: POTASSIUM 25 MEQ EFFERV TAB ONE (08:00)
--- NOTE | 2020-12-27 08:26 | RAD REPORT ---
EXAM DESCRIPTION: Reilly Single View12/27/2020 6:53 am CLINICAL HISTORY: Cough COMPARISON: 2019 FINDINGS: The lungs appear clear of acute infiltrate. The heart is borderline enlarged. Right hemid iaphragm remains elevated IMPRESSION: No acute abnormalities displayed
--- NOTE | 2020-12-27 08:27 | RAD REPORT ---
EXAM DESCRIPTION: USExtrem Venous W Compress Bil12/27/2020 7:29 am CLINICAL HISTORY: Leg pain COMPARISON: 2018 FINDINGS: The common femoral, superficial femoral, popliteal and posterior tibial veins bilaterally are compressible and demonstrate augmentation. Doppler demonstrates good flow. IMPRESSION: No evidence of deep venous thrombosis involving either lower extremity.
[2020-12-27 09:20] VITALS: TEMP 97.7
[2020-12-27 09:23] VITALS: BP 145/93; O2SAT 98
== END 2020-12-27 08:58 | disposition home or self-care (01) ==
LOC: ER 05:13
DX: M79.604 Pain in right leg (principal); M79.605 Pain in left leg; E10.9 Type 1 diabetes mellitus without complications; E87.6 Hypokalemia; I87.2 Venous insufficiency (chronic) (peripheral); I48.91 Unspecified atrial fibrillation; G89.29 Other chronic pain; I10 Essential (primary) hypertension; L40.9 Psoriasis, unspecified
CPT/HCPCS: 85025; 80048; 36415; 83735; 85610; 80076; 83605; 84484; 83880; 71045; 93970; 99285; J2270 ×2; J7030; J2405; 93005

== ENCOUNTER 2020-12-29 11:16 | Emergency (ER) | payer OTHER ==
--- OUTSIDE RECORDS SUMMARY | 2020-12-29 11:18 | XMS REPORT | Continuity of Care Document ---
:1950 Author Organization Formerly [facility] t Address [address] [place] [address] Care Team Providers Name Role Phone Lorraine CORTEZ Attending Clinician Singer WATTS Attending Clinician Kassie Harrison MD Attending Clinician Daly VILLAREAL, Nilda Attending Clinician Doctor Unassigned, Name Attending Clinician Unavailable Wilder VILLAREAL, K.H. Attending Clinician Eliot VILLAREAL Attending Clinician Padmini VILLAREAL, Samantha Attending Clinician Kassie Harrison MD Admitting Clinician [...] 2020-12-19 2020-12-19 Transition Tuan Peters 1.2.840.114 [id number] 00:00:00 00:00:00 of Care Ruchi Braswell [id number] [place] [id number] 2020-12-11 2020-12-17 [facility] Paco Lacey 1.2.840.1 [id number] 05:11:00 16:00:00 Encounter Rene Harrison Natty [id number] [facility] [id number] [id number] 2020-11-11 2020-11-11 Orders Doctor BASILIA 1.2.840.114 [id number] 00:00:00 00:00:00 Only Unassigned, NATTY [id number] [facility] 4.2.7.2.686 [id number] 2020-11-07 2020-11-07 Telephone ANNA Hdz [id number] 00:00:00 00:00:00 Angi Tobin 350.1.13.10 [place] 4.2.7.2.686 [facility] [id number] [facility]9 [facility] 2020-10-30 2020-10-30 Orders Doctor BASILIA 1.2.840.114 [id number] 00:00:00 00:00:00 Only Unassigned, NATTY [id number] [place] [facility] 4.2.7.2.686 [id number] 2020-09-26 2020-09-26 Telephone STONE Mccabe 1.2.840.114 [id number] 00:00:00 00:00:00 [facility] [id number] [facility] [id number] [id number] 2020-09-01 2020-09-01 Orders Doctor CUI 1.2.840.114 [id number] 00:00:00 00:00:00 Only Unassigned, NATTY [id number] [facility] 4.2.7.2.686 [id number] 2020-08-25 2020-08-25 Tuan Lora 1.2.840.114 [id number] 00:00:00 00:00:00 of Care Ruchi Braswell [id number] [place] 4.2.7.2.686 [id number] 2020-08-21 2020-08-23 [facility] Ayleen [place] 1.2.840.114 [id number] 01:07:00 18:35:00 Encounter Kelly Amaya [id number] [facility] [id number] Results This patient has no known results.
[2020-12-29] MEDS ORDERED: HYDROMORPHONE HCL 1 MG/ML INJ ONE (12:46)
[2020-12-29] MEDS ORDERED: hydrOXYzine HCL 25 MG TAB ONE (12:46)
[2020-12-29] MEDS ORDERED: NA CHLORIDE 0.9% 0 ML ONE (13:05)
[2020-12-29] MEDS ORDERED: clonazePAM 0.5 MG TAB ONE (13:36)
--- NOTE | 2020-12-29 14:42 | ER ---
Nurse's Notes [facility] Name: Kiel Ngo Age: 70 yrs Sex: Male : 1950 Arrival Date: 12/29/2020 Time: 11:17 Bed 3 Private MD: Diagnosis: Candidiasis;Candidiasis, unspecified;Pain Pump Dysfunction;Chronic pain syndrome Presentation: 12/29 11:18 Chief complaint: EMS states: he has an oozing wound on his back, vs stable, said his tw2 pain pump quit working. Coronavirus screen: At this time, the client does not indicate any symptoms associated with coronavirus-19. Ebola Screen: Patient denies travel to an Ebola-affected area in the 21 days before illness onset. Initial Sepsis Screen: Does the patient meet any 2 criteria? HR > 90 bpm. No. Patient's initial sepsis screen is negative. Does the patient have a suspected source of infection? No. Patient's initial sepsis screen is negative. Initial Sepsis Screen: Does the patient have a suspected source of infection? Yes: Skin breakdown/wound. Risk Assessment: Do you want to hurt yourself or someone else? Patient reports no desire to harm self or others. Onset of symptoms was December 29, 2020. 11:18 Method Of Arrival: EMS: [facility] tw2 11:18 Acuity: JOZEF 3 tw2 11:18 Care prior to arrival: None. tw2 Triage Assessment: 11:21 General: Appears in no apparent distress. uncomfortable, unkempt, Behavior is calm, tw2 cooperative, appropriate for age. General: Smells of urine, and foul smelling wound drainage. Pain: Complains of pain in back and buttocks. EENT: No signs and/or symptoms were reported regarding the EENT system. Neuro: Level of Consciousness is awake, alert, obeys commands, Oriented to person, place, time, situation. Cardiovascular: Patient's skin is warm and dry. Respiratory: Airway is patent Respiratory effort is even, unlabored, Respiratory pattern is regular, symmetrical. GI: Abdomen is round obese. : No signs and/or symptoms were reported regarding the genitourinary system. Derm: Decubitus located on sacrum back or sacrum Reports. Musculoskeletal: Circulation, motion, and sensation intact. Historical: - Allergies: 11:48 Demerol; tw2 11:48 metformin; tw2 - PMHx: 11:48 Atrial Fib; Diabetes - IDDM; Chronic pain; Hypertension; Lymphadema; psoriasis; tw2 - PSHx: 11:48 tendon repair foot; tw2 - Immunization history:: Adult Immunizations. - Social history:: Smoking status: . Screenin:27 Abuse screen: Denies threats or abuse. Nutritional screening: No deficits noted. tw2 Tuberculosis screening: No symptoms or risk factors identified. Fall Risk Secondary diagnosis (15 points) impaired mobility. Assessment: 11:17 Reassessment: see triage assessment. tw2 11:20 Reassessment: provider Dr. Wright, myself and Shelly Davison, at bedside, supplies to tw2 clean and change pt at bedside, no oozing ulcer noted, blanchable redness noted to back and sacrum, no open wounds noted, pt was cleaned, dried and placed on clean paper chux at this time to monitor, pt denies urinating himself or sweating last night. 12:17 Reassessment: Patient appears in no apparent distress at this time. No changes from tw2 previously documented assessment. Patient and/or family updated on plan of care and expected duration. Pain level reassessed. Patient is alert, oriented x 3, equal unlabored respirations, skin warm/dry/pink. 13:10 Reassessment: Patient and/or family updated on plan of care and expected duration. Pain tw2 level reassessed. Patient is alert, oriented x 3, equal unlabored respirations, skin warm/dry/pink. pt states "i always have a high heart rate, i am just anxious and run high and also i am out of my clonazepam can i get some now, that will probably help", provider notified Patient states symptoms have not improved. 14:20 Reassessment: Patient appears in no apparent distress at this time. No changes from tw2 previously documented assessment. Patient and/or family updated on plan of care and expected duration. Pain level reassessed. Patient is alert, oriented x 3, equal unlabored respirations, skin warm/dry/pink. 15:24 Reassessment: Patient appears in no apparent distress at this time. No changes from tw2 previously documented assessment. Patient and/or family updated on plan of care and expected duration. Pain level reassessed. Patient is alert, oriented x 3, equal unlabored respirations, skin warm/dry/pink. Vital Signs: 11:18 BP 159 / 104; Pulse 128; Resp 20; Temp 98.2(O); Pulse Ox 97% on R/A; Weight 90.72 kg tw2 (R); Height 5 ft. 11 in. (180.34 cm) (R); Pain 10/10; 12:37 BP 149 / 107; Pulse 127; Resp 20; Pulse Ox 97% on R/A; Pain 8/10; em1 15:23 BP 154 / 92; Pulse 130; Resp 18; Pulse Ox 97% on R/A; tw2 11:18 Body Mass Index 27.89 (90.72 kg, 180.34 cm) tw2 ED Course: 11:17 Patient arrived in ED. am2 11:17 Bed in low position. Call light in reach. Side rails up X2. residential monitor on. Pulse tw2 ox on. NIBP on. Warm blanket given. 11:18 Kortney Franco RN is Primary Nurse. tw2 11:21 Triage completed. tw2 11:33 Calvin Wright MD is Attending Physician. kdr 11:39 Arm band placed on. tw2 12:35 Inserted saline lock: 22 gauge in right hand, using aseptic technique. em1 14:42 Awaiting transportation. tw2 15:24 No provider procedures requiring assistance completed. IV discontinued, intact, tw2 bleeding controlled, No redness/swelling at site. Pressure dressing applied. Administered Medications: 12:44 Drug: Dilaudid 2 mg {Note: RASS 0.} Route: IVP; Site: right hand; tw2 13:22 Follow up: Response: No adverse reaction; Pain is decreased; RASS: Alert and Calm (0) tw2 12:46 Drug: Atarax 50 mg Route: PO; tw2 13:22 Follow up: Response: No adverse reaction tw2 12:56 Not Given (Duplicate Order): Dilaudid 2 mg IVP once; Place in 100 cc and infuse over 60 tw2 minutes 13:21 Drug: KLONopin (clonazePAM) 0.25 mg Route: PO; tw2 15:15 Follow up: Response: No adverse reaction tw2 15:00 Drug: [place] 10 mg-325 mg 1 tabs Route: PO; tw2 15:22 Follow up: Response: No adverse reaction tw2 Outcome: 14:41 Discharge ordered by . kdr 15:24 Discharged to home via ambulance. tw2 15:24 Condition: stable 15:24 Discharge instructions given to patient, Instructed on discharge instructions, follow up and referral plans. no drinking with medication, no driving heavy equipment, medication usage, Demonstrated understanding of instructions, follow-up care, medications, Prescriptions given X 2. 15:27 Patient left the ED. tw2 Signatures: Calvin Wright MD MD kdr Saman Suarez em1 Kortney Franco RN RN tw2 Katharine Arthur am2 Corrections: (The following items were deleted from the chart) 13: 11:17 Reassessment: Patient appears in no apparent distress at this time. No changes tw2 from previously documented assessment. Patient and/or family updated on plan of care and expected duration. Pain level reassessed. Patient is alert, oriented x 3, equal unlabored respirations, skin warm/dry/pink. tw2 13: 11:17 General: tw2 tw2
--- NOTE | 2020-12-29 14:42 | EDPHYS ---
Physician Documentation [facility] Name: Kiel Ngo Age: 70 yrs Sex: Male : 1950 Arrival Date: 12/29/2020 Time: 11:17 Bed 3 Private MD: ED Physician Calvin Wright HPI: 12/29 12:03 This 70 yrs old Male presents to ER via EMS with complaints of pain pump kdr emty/ \T\ seeping from back. 12:04 The patient was seen here on Friday for bilateral foot pain and skin breakdown on kdr his back. He has a Dilaudid pain pump that has run out and is no longer working. I spoke with Dr. Francois regarding the patient condition and presenting complaint. He indicated that the patient was supposed to get cardiac and ID clearance prior to replacement of the pain pump. . Onset: The symptoms/episode began/occurred at an unknown time. Severity of symptoms: At their worst the symptoms were mild moderate just prior to arrival. The patient has experienced similar episodes in the past, chronically. The patient has been recently seen by a physician: The patient has been recently seen at the [facility] Emergency Department, this week. Historical: - Allergies: 11:48 Demerol; tw2 11:48 metformin; tw2 - PMHx: 11:48 Atrial Fib; Diabetes - IDDM; Chronic pain; Hypertension; Lymphadema; psoriasis; tw2 - PSHx: 11:48 tendon repair foot; tw2 - Immunization history:: Adult Immunizations. - Social history:: Smoking status: . ROS: 12:04 Constitutional: Negative for fever, chills, and weight loss, Eyes: Negative for injury, kdr pain, redness, and discharge, Neck: Negative for injury, pain, and swelling, Cardiovascular: Negative for chest pain, palpitations, and edema, Respiratory: Negative for shortness of breath, cough, wheezing, and pleuritic chest pain, Abdomen/GI: Negative for abdominal pain, nausea, vomiting, diarrhea, and constipation, Back: Negative for injury he does have pain and itiching to back. He feels that he is getting an infection in his back - his sheets are soild : Negative for injury, bleeding, discharge, and swelling, MS/Extremity: Negative for injury and deformity, Neuro: Negative for headache, weakness, numbness, tingling, and seizure activity. Psych: Negative for depression, anxiety, suicide ideation, homicidal ideation, and hallucinations, Allergy/Immunology: Negative for hives, rash, and allergies, Endocrine: Negative for neck swelling, polydipsia, polyuria, polyphagia, and marked weight changes, Hematologic/Lymphatic: Negative for swollen nodes, abnormal bleeding, and unusual bruising. 12:04 Skin: Positive for erythema, of the back. Exam: 12:04 Constitutional: This is a well developed, well nourished patient who is awake, alert, kdr and in no acute distress. Head/Face: Normocephalic, atraumatic. Eyes: Pupils equal round and reactive to light, extra-ocular motions intact. Lids and lashes normal. Conjunctiva and sclera are non-icteric and not injected. Cornea within normal limits. Periorbital areas with no swelling, redness, or edema. Neck: Trachea midline, no thyromegaly or masses palpated, and no cervical lymphadenopathy. Supple, full range of motion without nuchal rigidity, or vertebral point tenderness. No Meningismus. Chest/axilla: Normal chest wall appearance and motion. Nontender with no deformity. No lesions are appreciated. Cardiovascular: Regular rate and rhythm with a normal S1 and S2. No gallops, murmurs, or rubs. Normal PMI, no JVD. No pulse deficits. Respiratory: Lungs have equal breath sounds bilaterally, clear to auscultation and percussion. No rales, rhonchi or wheezes noted. No increased work of breathing, no retractions or nasal flaring. Vital Signs: 11:18 BP 159 / 104; Pulse 128; Resp 20; Temp 98.2(O); Pulse Ox 97% on R/A; Weight 90.72 kg tw2 (R); Height 5 ft. 11 in. (180.34 cm) (R); Pain 10/10; 12:37 BP 149 / 107; Pulse 127; Resp 20; Pulse Ox 97% on R/A; Pain 8/10; em1 15:23 BP 154 / 92; Pulse 130; Resp 18; Pulse Ox 97% on R/A; tw2 11:18 Body Mass Index 27.89 (90.72 kg, 180.34 cm) tw2 MDM: 11:49 Physician consultation:. kdr 12:02 Physician consultation: Madhu Francois DO was called at 12:02, was contacted at 12:02, kdr regarding consult, patient's condition, outpatient follow-up, and will see patient in office, on Friday. next week. 14:41 Patient medically screened. kdr 18:16 Data reviewed: vital signs, nurses notes, lab test result(s), radiologic studies. kdr Counseling: I had a detailed discussion with the patient and/or guardian regarding: the historical points, exam findings, and any diagnostic results supporting the discharge/admit diagnosis, lab results, radiology results, the need for outpatient follow up. 12/29 11:59 Order name: IV; Complete Time: 12:35 tw2 Administered Medications: 12:44 Drug: Dilaudid 2 mg {Note: RASS 0.} Route: IVP; Site: right hand; tw2 13:22 Follow up: Response: No adverse reaction; Pain is decreased; RASS: Alert and Calm (0) tw2 12:46 Drug: Atarax 50 mg Route: PO; tw2 13:22 Follow up: Response: No adverse reaction tw2 12:56 Not Given (Duplicate Order): Dilaudid 2 mg IVP once; Place in 100 cc and infuse over 60 tw2 minutes 13:21 Drug: KLONopin (clonazePAM) 0.25 mg Route: PO; tw2 15:15 Follow up: Response: No adverse reaction tw2 15:00 Drug: [place] 10 mg-325 mg 1 tabs Route: PO; tw2 15:22 Follow up: Response: No adverse reaction tw2 Disposition: 12/29/20 14:41 Discharged to Home. Impression: Candidiasis, Candidiasis, unspecified, Pain Pump Dysfunction, Chronic pain syndrome. - Condition is Stable. - Discharge Instructions: Skin Yeast Infection. - Prescriptions for Nystatin- Triamcinolone 100,000-0.1 unit/g-% Topical Cream - apply 1 application by TOPICAL route 2 times per day; 1 tube. Hydroxyzine HCl 25 mg Oral Tablet - take 1 tablet by ORAL route every 6 hours As needed; 30 tablet. - Medication Reconciliation Form, Thank You Letter, Antibiotic Education form. - Follow up: Private Physician; When: 2 - 3 days; Reason: If symptoms return, Further diagnostic work-up, Recheck today's complaints, Continuance of care, Re-evaluation by your physician. - Problem is an ongoing problem. - Symptoms have improved. - Notes: Call Dr. Francois for further pain medication. You may need to page him through [facility] Signatures: Calvin Wright MD MD kdr Juanita Mcguire RN RN iw Kortney Franco RN RN tw2 Corrections: (The following items were deleted from the chart) 14:43 14:41 12/29/2020 14:41 Discharged to Home. Impression: Candidiasis; Candidiasis, kdr unspecified. Condition is Stable. Forms are Medication Reconciliation Form, Thank You Letter, Antibiotic Education, Prescription Opioid Use. Follow up: Private Physician; When: 2 - 3 days; Reason: If symptoms return, Further diagnostic work-up, Recheck today's complaints, Continuance of care, Re-evaluation by your physician. Problem is an ongoing problem. Symptoms have improved. kdr 15:27 14:43 12/29/2020 14:41 Discharged to Home. Impression: Candidiasis; Candidiasis, tw2 unspecified; Pain Pump Dysfunction; Chronic pain syndrome. Condition is Stable. Discharge Instructions: Skin Yeast Infection. Prescriptions for Nystatin-Triamcinolone 100,000-0.1 unit/g-% Topical Cream - apply 1 application by TOPICAL route 2 times per day; 1 tube. and Forms are Medication Reconciliation Form, Thank You Letter, Antibiotic Education, Prescription Opioid Use. Follow up: Private Physician; When: 2 - 3 days; Reason: If symptoms return, Further diagnostic work-up, Recheck today's complaints, Continuance of care, Re-evaluation by your physician. Problem is an ongoing problem. Symptoms have improved. kdr
[2020-12-29] MEDS ORDERED: HYDROCODONE/APAP 10/325 TAB ONE (15:14)
[2020-12-29 15:36] VITALS: O2SAT 97
[2020-12-29 15:38] VITALS: TEMP 98.2
[2020-12-29 15:39] VITALS: BP 154/92
== END 2020-12-29 15:27 | disposition home or self-care (01) ==
LOC: ER 11:16
DX: G89.4 Chronic pain syndrome (principal); B37.9 Candidiasis, unspecified; I10 Essential (primary) hypertension; Z88.5 Allergy status to narcotic agent; Z88.8 Allergy status to other drugs, medicaments and biological substances
CPT/HCPCS: 96374; 99284; J1170

== ENCOUNTER 2021-01-05 16:11 | Emergency (ER) | payer OTHER ==
--- OUTSIDE RECORDS SUMMARY | 2021-01-05 16:13 | XMS REPORT | Continuity of Care Document ---
:1950 Author Organization [facility] t Address [address] [place] [address] Care Team Providers Name Role Phone Hawa Lagos MD Attending Clinician Lorraine CORTEZ Attending Clinician Singer WATTS Attending [...] Date/Time Type Type Clinicians Facility Department ID 2020-12-28 2020-12-28 Telephone ANNA Lagos 1.2.840.114 [id number] 00:00:00 00:00:00 Calvin Shaikh [facility] [id number] CARE 4.2.7.2.686 [place] [id number] 2020-12-19 2020-12-19 Transition Tuan Peters 1.2.840.114 [id number] 00:00:00 00:00:00 of Care Ruchi Braswell [id number] [place] 4.2.7.2.686 [id number] 2020-12-11 2020-12-17 [facility] Paco Lacey 1.2.840.1 [id number] 05:11:00 16:00:00 Encounter Rene Harrison Natty [id number] [facility] 4.2.7.2.686 [id number] 2020-11-11 2020-11-11 Orders Doctor BASILIA 1.2.840.114 [id number] 00:00:00 00:00:00 Only Unassigned, NATTY [id number] [place] [facility] 4.2.7.2.686 [id number] 2020-11-07 2020-11-07 Telephone Wilder [facility] [id number] 00:00:00 00:00:00 Angi Tobin [id number] [place] 4.2.7.2.686 [facility] [id number] [facility] 059 [facility] 2020-10-30 2020-10-30 Orders Doctor CUI 1.2.840.114 [id number] 00:00:00 00:00:00 Only Unassigned, NATTY [id number] [place] [facility] 4.2.7.2.686 [id number] 2020-09-26 2020-09-26 Telephone STONE Mccabe 1.2.840.114 [id number] 00:00:00 00:00:[address] [facility] [id number] [facility] 4.2.7.2.686 [id number] 2020-09-01 2020-09-01 Orders Doctor CUI 1.2.840.114 [id number] 00:00:00 00:00:00 Only Unassigned, NATTY 350.1.13.10 [place] [facility] 4.2.7.2.686 [id number] 2020-08-25 2020-08-25 Transition Tuan Peters 1.2.840.114 [id number] 00:00:00 00:00:00 of Care Ruchi Braswell [id number] [place] 4.2.7.2.686 [id number] 2020-08-21 2020-08-23 [facility] Ayleen [place] 1.2.840.114 [id number] 01:07:00 18:35:00 Encounter Kelly Amaya [id number] [facility] 4.2.7.2.686 [id number] Results This patient has no known results.
[2021-01-05 17:02] LABS: Absolute Lymphocytes (CBC) 1.7 K/uL (0.7-4.9); Basophils % 0.6 % (0-1.3); Hematocrit 41.2 % (39.6-49.0); Lymphocytes % 19.1 % (15.3-44.8); MPV 6.8 fL (7.6-11.3); RBC Red Blood Cell Count 5.38 M/uL (4.33-5.43)
[2021-01-05] MEDS ORDERED: HYDROMORPHONE HCL 2 MG/ML inj ONE (17:11)
[2021-01-05] MEDS ORDERED: ONDANSETRON 4 MG/2 ML VIAL ONE (17:14)
[2021-01-05 17:23] LABS: ALT/SGPT 30 U/L (12-78); AST/SGOT 15 U/L (15-37); Albumin 3.1 g/dL (3.4-5.0); Alkaline Phosphatase 206 U/L (45-117); BUN Blood Urea Nitrogen 10 mg/dL (7-18); Bicarbonate 30 mmol/L (21-32); Bilirubin Direct 0.2 mg/dL (0-0.2); Bilirubin Total 0.5 mg/dL (0.2-1.0); Glucose Level 258 mg/dL (74-106); Lipase 29 U/L (73-393); Potassium 3.7 mmol/L (3.5-5.1); Protein, Total 7.3 g/dL (6.4-8.2); Sodium Level 140 mmol/L (136-145)
[2021-01-05] MEDS ORDERED: NA CHLORIDE 0.9% 500 ML ONE (17:31)
[2021-01-05] MEDS ORDERED: DIPHENHYDRAMINE 50 MG/ML VIAL ONE (17:47)
[2021-01-05] MEDS ORDERED: LABETALOL 20 MG/4ML SYRINGE IV ONE (18:02)
[2021-01-05] MEDS ORDERED: HYDROMORPHONE HCL 1 MG/ML INJ ONE (18:37)
--- NOTE | 2021-01-05 18:46 | EDPHYS ---
Physician Documentation [facility] Name: Kiel Ngo Age: 70 yrs Sex: Male : 1950 Arrival Date: 01/05/2021 Time: 16:26 Bed 14 Private MD: ED Physician Calvin Wright HPI: 01/05 16:45 This 70 yrs old Male presents to ER via EMS with complaints of Pain. cp 16:45 The patient presents with pain, that is chronic. The complaints affect the right leg cp and left leg. Context: the patient is not able to bear weight, patient reports he is bed bound . 16:45 Associated signs and symptoms: Pertinent negatives fever, numbness, swelling, warmth. cp Patient reports history of chronic bilateral leg pain with pain worsening since pain pump not working. Patient reports he is a patient of DR Francois. Historical: - Allergies: 16:32 Demerol; jd3 16:32 metformin; jd3 - Home Meds: 16:32 alprazolam 0.25 mg Oral tab [Active]; Ambien 10 mg Oral tab 1 tab once daily [Active]; jd3 Benadryl 50mg Oral [Active]; Effexor XR 150 mg Oral cp24 [Active]; Humulin 70/30 50 units Sub-Q at supper [Active]; Ambien 10 mg Oral tab [Active]; Humulin 70/30 55units Sub-Q at breakfast [Active]; hydromorphone 8 mg Oral tab 1 tab every 4 hours [Active]; tizanidine 4 mg Oral cap [Active]; Salicylic Acid/ Ceramide Cmb #1 [Active]; venlafaxine 150 mg Oral cp24 1 cap twice a day [Active]; - PMHx: 16:32 Chronic pain; psoriasis; Diabetes - IDDM; Atrial Fib; Hypertension; Lymphadema; jd3 - PSHx: 16:32 tendon repair foot; jd3 - Immunization history:: Adult Immunizations up to date, Pneumococcal vaccine is not up to date, Flu vaccine is not up to date. - Social history:: Smoking status: Patient denies any tobacco usage or history of. ROS: 16:50 Constitutional: Negative for body aches, chills, fever, poor PO intake. cp 16:50 Eyes: Negative for injury, pain, redness, and discharge. cp 16:50 Cardiovascular: Negative for chest pain, edema. 16:50 Respiratory: Negative for cough, shortness of breath, wheezing. 16:50 Abdomen/GI: Negative for abdominal pain, nausea, vomiting, and diarrhea. 16:50 MS/extremity: Positive for pain, of the right leg and left leg, Negative for injury or acute deformity. 16:50 Skin: Negative for cellulitis. 16:50 Neuro: Negative for altered mental status, headache. 16:50 All other systems are negative. Exam: 16:56 ECG was reviewed by the Attending Physician. cp 16:58 Constitutional: The patient appears in no acute distress, alert, awake, cp non-diaphoretic, non-toxic, well developed, well nourished. 16:58 Head/Face: Normocephalic, atraumatic. cp 16:58 Eyes: Periorbital structures: appear normal, Conjunctiva: normal, no exudate, no injection, Sclera: no appreciated abnormality, Lids and lashes: appear normal, bilaterally. 16:58 Chest/axilla: Inspection: normal, Palpation: is normal, no crepitus, no tenderness. 16:58 Cardiovascular: Rate: tachycardic, Rhythm: regular, Edema: is not appreciated. 16:58 Respiratory: the patient does not display signs of respiratory distress, Respirations: normal, no use of accessory muscles, no retractions, labored breathing, is not present, Breath sounds: are clear throughout, no decreased breath sounds. 16:58 Abdomen/GI: Inspection: abdomen appears normal, Palpation: abdomen is soft and non-tender. 16:58 Musculoskeletal/extremity: Extremities: grossly normal except: noted in the right leg and left leg: pain. 16:58 Skin: cellulitis, is not appreciated. Vital Signs: 16:32 BP 133 / 78; Pulse 122; Resp 16 S; Temp 97.0(TE); Pulse Ox 97% on R/A; Weight 89.81 kg jd3 (R); Height 5 ft. 11 in. (180.34 cm) (R); Pain 10/10; 17:32 BP 142 / 88; Pulse 117; Resp 15 S; Pulse Ox 97% on R/A; jd3 18:07 BP 127 / 80; Pulse 92; Resp 17 S; Pulse Ox 97% on R/A; jd3 20:00 BP 135 / 82; Pulse 90; Resp 20; Temp 98; Pulse Ox 96% ; Pain 4/10; cr4 21:00 BP 125 / 75; Pulse 78; Resp 18; Pulse Ox 98% ; Pain 4/10; cr4 22:00 BP 136 / 76; Pulse 80; Resp 18; Temp 97.8; Pulse Ox 97% ; cr4 16:32 Body Mass Index 27.62 (89.81 kg, 180.34 cm) jd3 MDM: 16:35 Patient medically screened. cp 17:00 Differential diagnosis: DVT, cellulitis, chronic pain. cp 18:30 Data reviewed: vital signs, nurses notes, lab test result(s), I have discussed the cp patient's presentation/case with the attending Emergency Department Physician;. 18:42 Physician consultation: Madhu Francois DO was called at 18:40, was contacted at 18:40, regarding patient's condition, reports patient has prescription for pain medications that was called to pharmacy today. 01/05 16:39 Order name: Basic Metabolic Panel 01/05 16:39 Order name: CBC with Diff; Complete Time: 17:22 01/05 17:22 Interpretation: Normal except: HGB 13.4; MCV 76.5; MCH 25.0; PLT 359; RDW 17.7; MPV 6.8. 01/05 16:39 Order name: Hepatic Function; Complete Time: 17:24 01/05 17:24 Interpretation: Normal except: ALK 206; ALB 3.1; GLOB 4.2; A/G 0.7. 01/05 16:39 Order name: Lipase; Complete Time: 17:24 01/05 16:40 Order name: Basic Metabolic Panel; Complete Time: 17:24 EDMS 01/05 16:39 Order name: EKG; Complete Time: 16:40 01/05 16:39 Order name: EKG - Nurse/Tech; Complete Time: 16:54 cp 01/05 16:39 Order name: IV Saline Lock; Complete Time: 16:54 01/05 16:39 Order name: Labs collected and sent; Complete Time: 17:00 01/05 16:40 Order name: EKG Electrocardiogram; Complete Time: 17:23 EDMS EC:56 Rate is 123 beats/min. Rhythm is regular. NV interval is normal. QRS interval is cp normal. QT interval is normal. Interpreted by me. Reviewed by me. Administered Medications: 17:00 Drug: Dilaudid (HYDROmorphone) 1 mg Route: IVP; Site: right forearm; jd3 18:00 Follow up: Response: No adverse reaction; RASS: Alert and Calm (0) jd3 17:01 Drug: Zofran (Ondansetron) 4 mg Route: IVP; Site: right forearm; jd3 18:00 Follow up: Response: No adverse reaction jd3 17:16 Drug: NS 0.9% 500 ml Route: IV; Rate: 500 ml/hr; Site: right forearm; jd3 18:15 Follow up: Response: No adverse reaction; IV Status: Completed infusion jd3 17:32 Drug: Benadryl (diphenhydrAMINE) 25 mg Route: IVP; Site: right forearm; jd3 18:30 Follow up: Response: No adverse reaction jd3 17:45 Drug: Trandate 10 mg Route: IVP; Site: right forearm; jd3 18:45 Follow up: Response: No adverse reaction jd3 18:23 Drug: Dilaudid (HYDROmorphone) 1 mg Route: IVP; Site: right forearm; jd3 18:54 Follow up: Response: No adverse reaction; RASS: Alert and Calm (0) jd3 19:41 Drug: Hydrocodone-Acetaminophen (10 mg-500 mg) 1 tabs Route: PO; cr4 Disposition: 01/05/21 18:45 Discharged to Home. Impression: Chronic pain syndrome. - Condition is Stable. - Discharge Instructions: Chronic Pain, Pain Medicine Instructions. - Medication Reconciliation Form, Thank You Letter, Antibiotic Education, Prescription Opioid Use, SBAR form form. - Follow up: Madhu Francois DO; When: 2 - 3 days; Reason: Recheck today's complaints. - Problem is chronic. - Symptoms have improved. Addendum: 01/08/2021 08:23 Co-signature as Attending Physician, Calvin Wright MD I agree with the assessment and k dr plan of care. Signatures: Dispatcher [employer] EDKY Calvin Wright MD MD kdr Ruiz, Claudia, RN RN cr4 Stu Mcarthur PA PA cp Robbie Diez, RN RN jd3 Corrections: (The following items were deleted from the chart) 01/05 22:31 18:45 01/05/2021 18:45 Discharged to Home. Impression: Chronic pain syndrome. Condition cr4 is Stable. Forms are Medication Reconciliation Form, Thank You Letter, Antibiotic Education, Prescription Opioid Use. Follow up: Madhu Francois; When: 2 - 3 days; Reason: Recheck today's complaints. Problem is chronic. Symptoms have improved. cp 01/06 00:27 01/05 16:45 Patient reports history of chronic bilateral leg pain with pain worsening cp since pain pump not working. Patient reports he is a patient of DR Alonso. cp
--- NOTE | 2021-01-05 18:46 | ER ---
Nurse's Notes [facility] Name: Kiel Ngo Age: 70 yrs Sex: Male : 1950 Arrival Date: 01/05/2021 Time: 16:26 Bed 14 Private MD: Diagnosis: Chronic pain syndrome Presentation: 01/05 16:26 Chief complaint: EMS states: "pt is reporting worsening leg pain that radiates into his jd3 back. pt is on a Dilaudid pain pump that is currently broken. pt is hoping to get the pain under control today.". Coronavirus screen: At this time, the client does not indicate any symptoms associated with coronavirus-19. Ebola Screen: Patient negative for fever greater than or equal to 101.5 degrees Fahrenheit, and additional compatible Ebola Virus Disease symptoms. Initial Sepsis Screen: Does the patient meet any 2 criteria? No. Patient's initial sepsis screen is negative. Does the patient have a suspected source of infection? No. Patient's initial sepsis screen is negative. Risk Assessment: Do you want to hurt yourself or someone else? Patient reports no desire to harm self or others. Onset of symptoms was January 05, 2021. 16:26 Method Of Arrival: EMS: [facility] jd3 16:26 Acuity: JOZEF 3 jd3 Historical: - Allergies: 16:32 Demerol; jd3 16:32 metformin; jd3 - Home Meds: 16:32 alprazolam 0.25 mg Oral tab [Active]; Ambien 10 mg Oral tab 1 tab once daily [Active]; jd3 Benadryl 50mg Oral [Active]; Effexor XR 150 mg Oral cp24 [Active]; Humulin 70/30 50 units Sub-Q at supper [Active]; Ambien 10 mg Oral tab [Active]; Humulin 70/30 55units Sub-Q at breakfast [Active]; hydromorphone 8 mg Oral tab 1 tab every 4 hours [Active]; tizanidine 4 mg Oral cap [Active]; Salicylic Acid/ Ceramide Cmb #1 [Active]; venlafaxine 150 mg Oral cp24 1 cap twice a day [Active]; - PMHx: 16:32 Chronic pain; psoriasis; Diabetes - IDDM; Atrial Fib; Hypertension; Lymphadema; jd3 - PSHx: 16:32 tendon repair foot; jd3 - Immunization history:: Adult Immunizations up to date, Pneumococcal vaccine is not up to date, Flu vaccine is not up to date. - Social history:: Smoking status: Patient denies any tobacco usage or history of. Screenin:34 Abuse screen: Denies threats or abuse. Nutritional screening: No deficits noted. jd3 Tuberculosis screening: No symptoms or risk factors identified. Fall Risk Ambulatory Aid- None/Bed Rest/Nurse Assist (0 pts). Gait- Normal/Bed Rest/Wheelchair (0 pts) Mental Status- Oriented to own ability (0 pts). Total Chow Fall Scale indicates No Risk (0-24 pts). Assessment: 16:33 General: Appears in no apparent distress. comfortable, Behavior is calm, cooperative, jd3 appropriate for age. Pain: Complains of pain in right leg and left leg Pain radiates to back Quality of pain is described as sharp, shooting. Neuro: Level of Consciousness is awake, alert, obeys commands, Oriented to person, place, time, situation. Cardiovascular: Capillary refill < 3 seconds Patient's skin is warm and dry. Respiratory: Airway is patent Respiratory effort is even, unlabored, Respiratory pattern is regular, symmetrical, Denies cough, shortness of breath. GI: No signs and/or symptoms were reported involving the gastrointestinal system. : No signs and/or symptoms were reported regarding the genitourinary system. EENT: No signs and/or symptoms were reported regarding the EENT system. Derm: Skin is intact, Skin is dry, Skin is normal, Skin temperature is warm. Musculoskeletal: Circulation, motion, and sensation intact. Range of motion: limited in left and right leg. 17:32 Reassessment: Patient appears in no apparent distress at this time. Patient and/or jd3 family updated on plan of care and expected duration. Pain level reassessed. Patient is alert, oriented x 3, equal unlabored respirations, skin warm/dry/pink. Patient states feeling better. 18:56 Reassessment: Patient appears in no apparent distress at this time. Patient and/or jd3 family updated on plan of care and expected duration. Pain level reassessed. Patient is alert, oriented x 3, equal unlabored respirations, skin warm/dry/pink. racing secretary notified of pt's need for transport home via EMS. racing secretary reported it will take time. 20:00 Reassessment: Patient and/or family updated on plan of care and expected duration. Pain cr4 level reassessed. Patient is alert, oriented x 3, equal unlabored respirations, skin warm/dry/pink. received report from Justus CORTEZ.. General: Appears in no apparent distress. comfortable. Pain: Complains of pain in back Pain radiates to left leg and right leg. Neuro: Level of Consciousness is awake, alert, obeys commands, Oriented to person, place, time, situation, Appropriate for age. 21:00 Reassessment: Patient and/or family updated on plan of care and expected duration. Pain cr4 level reassessed. Patient is alert, oriented x 3, equal unlabored respirations, skin warm/dry/pink. Patient states feeling better. 22:00 Reassessment: Patient and/or family updated on plan of care and expected duration. Pain cr4 level reassessed. Patient is alert, oriented x 3, equal unlabored respirations, skin warm/dry/pink. notified the patient [facility] was on their way to take him home. Vital Signs: 16:32 BP 133 / 78; Pulse 122; Resp 16 S; Temp 97.0(TE); Pulse Ox 97% on R/A; Weight 89.81 kg jd3 (R); Height 5 ft. 11 in. (180.34 cm) (R); Pain 10/10; 17:32 BP 142 / 88; Pulse 117; Resp 15 S; Pulse Ox 97% on R/A; jd3 18:07 BP 127 / 80; Pulse 92; Resp 17 S; Pulse Ox 97% on R/A; jd3 20:00 BP 135 / 82; Pulse 90; Resp 20; Temp 98; Pulse Ox 96% ; Pain 4/10; cr4 21:00 BP 125 / 75; Pulse 78; Resp 18; Pulse Ox 98% ; Pain 4/10; cr4 22:00 BP 136 / 76; Pulse 80; Resp 18; Temp 97.8; Pulse Ox 97% ; cr4 16:32 Body Mass Index 27.62 (89.81 kg, 180.34 cm) [facility] ED Course: 16:26 Patient arrived in ED. jd3 16:28 Stu Mcarthur PA is PHCP. cp 16:28 Calvin Wright MD is Attending Physician. cp 16:31 Triage completed. jd3 16:33 Arm band placed on. jd3 16:34 Patient has correct armband on for positive identification. Placed in gown. Bed in low jd3 position. Call light in reach. Side rails up X2. Pulse ox on. NIBP on. 16:54 Robbie Diez RN is Primary Nurse. jd3 17:01 Inserted saline lock: 20 gauge in right forearm, using aseptic technique. Blood jd3 collected. placed by Funmilayo CORTEZ. 17:01 EKG done, by ED staff, reviewed by Stu AVELAR. jp3 18:44 Madhu Francois DO is Referral Physician. cp 19:14 Primary Nurse role handed off by Robbie Diez RN eb 19:26 Justus Juarez, DIEGO is Primary Nurse. fu 20:30 called to inform her the patients medications where called in to the pharmacy cr4 awaiting ambulance for transfer. 21:00 Door closed. Noise minimized. Lights dimmed. PO fluids given. pulled up in bed. cr4 22:20 No provider procedures requiring assistance completed. IV discontinued, intact, cr4 bleeding controlled, No redness/swelling at site. Administered Medications: 17:00 Drug: Dilaudid (HYDROmorphone) 1 mg Route: IVP; Site: right forearm; jd3 18:00 Follow up: Response: No adverse reaction; RASS: Alert and Calm (0) jd3 17:01 Drug: Zofran (Ondansetron) 4 mg Route: IVP; Site: right forearm; jd3 18:00 Follow up: Response: No adverse reaction jd3 17:16 Drug: NS 0.9% 500 ml Route: IV; Rate: 500 ml/hr; Site: right forearm; jd3 18:15 Follow up: Response: No adverse reaction; IV Status: Completed infusion jd3 17:32 Drug: Benadryl (diphenhydrAMINE) 25 mg Route: IVP; Site: right forearm; jd3 18:30 Follow up: Response: No adverse reaction jd3 17:45 Drug: Trandate 10 mg Route: IVP; Site: right forearm; jd3 18:45 Follow up: Response: No adverse reaction jd3 18:23 Drug: Dilaudid (HYDROmorphone) 1 mg Route: IVP; Site: right forearm; jd3 18:54 Follow up: Response: No adverse reaction; RASS: Alert and Calm (0) jd3 19:41 Drug: Hydrocodone-Acetaminophen (10 mg-500 mg) 1 tabs Route: PO; cr4 Outcome: 18:45 Discharge ordered by . nafisa 22:00 Discharge instructions given to patient, Instructed on discharge instructions, follow cr4 up and referral plans. Demonstrated understanding of instructions, follow-up care. 22:31 Patient left the ED. cr4 03 04:02 Discharged to home via ambulance. cr4 Condition: stable Signatures: Raquel Escobar RN RN cr4 Stu Mcarthur PA PA cp Davies, Jonathon, RN RN jd3 Umadhay, Felix RN Shannan Worley Jacob jp3 Corrections: (The following items were deleted from the chart) 05:12 04:06 Reassessment: Patient and/or family updated on plan of care and expected cr4 duration. Pain level reassessed. Patient is alert, oriented x 3, equal unlabored respirations, skin warm/dry/pink. notified the patient [facility] was on their way to take him home. cr4
[2021-01-05] MEDS ORDERED: HYDROCODONE/APAP 10/325 TAB ONE (19:55)
--- NOTE | 2021-01-06 11:12 | EKG ---
Test Date: 2021-01-05 Test Time: 16:50:13 Geodetic Survey Director: RENE MEASUREMENT RESULTS: Intervals: Rate: 123 UT: 144 QRSD: 80 QT: 328 QTc: 469 Flora: P: 63 UT: 144 QRS: -6 T: 29 INTERPRETIVE STATEMENTS: Sinus tachycardia Low voltage QRS Possible Inferior infarct, age undetermined Abnormal ECG Compared to ECG 12/27/2020 05:38:41 Low QRS voltage now present Sinus rhythm no longer present Sinus arrhythmia no longer present Prolonged QT interval no longer present Myocardial infarct finding still present Electronically Signed On 01-06-21 11:11:13 CDT by Ned Allen
[2021-01-06 16:01] VITALS: TEMP 97; O2SAT 97
[2021-01-06 16:03] VITALS: BP 127/80
== END 2021-01-05 22:31 | disposition home or self-care (01) ==
LOC: ER 16:11
DX: G89.4 Chronic pain syndrome (principal); M79.604 Pain in right leg; M79.605 Pain in left leg; L40.9 Psoriasis, unspecified; E11.9 Type 2 diabetes mellitus without complications; Z79.4 Long term (current) use of insulin; I48.91 Unspecified atrial fibrillation; I10 Essential (primary) hypertension
CPT/HCPCS: 96361; 93005; 85025; 80048; 36415; 80076; 83690; 96375; 96374; 99284; J1200; J1170 ×2; J7040; J2405

== ENCOUNTER 2021-01-24 14:20 | Emergency (ER) | payer OTHER ==
--- OUTSIDE RECORDS SUMMARY | 2021-01-24 14:23 | XMS REPORT | Continuity of Care Document ---
:1950 Author Organization [facility] t Address [address] [place] [address] Care Team Providers Name Role Phone Hawa [...] 2020-12-28 2020-12-28 Telephone ANNA Lagos [id number] 00:00:00 00:00:00 Calvin Shaikh [facility] [id number] CARE [id number] [place] [id number] [id number] 2020-12-19 2020-12-19 Transition Tuan Peters [id number] 00:00:00 00:00:00 of Care Ruchi Braswell [id number] [place] [id number] 2020-12-11 2020-12-17 [facility] Paco Lacey [id number] 05:11:00 16:00:00 Encounter Rene Harrison Natty [id number] [facility] [id number] 2020-11-11 2020-11-11 Orders Doctor BASILIA [id number] 00:00:00 00:00:00 Only Unassigned, NATTY [id number] [place] [facility] [id number] 2020-11-07 2020-11-07 Telephone Wilder [facility] [id number] 00:00:00 00:00:00 Angi Tobin [id number] [place] [id number] [facility] [id number] [facility] 059 [facility] 2020-10-30 2020-10-30 Orders Doctor CUI [id number] 00:00:00 00:00:00 Only Unassigned, NATTY [id number] [place] [facility] [id number] 2020-09-26 2020-09-26 Telephone STONE Mccabe 1.2.840.114 [id number] 00:00:00 00:00:00 [facility] [id number] [facility] [id number] 2020-09-01 2020-09-01 Orders Doctor CUI [id number] 00:00:00 00:00:00 Only Unassigned, NATTY [id number] [facility] [id number] 2020-08-25 2020-08-25 Transition Tuan Peters [id number] 00:00:00 00:00:00 of Care Ruchi Braswell [id number] [place] [id number] 2020-08-21 2020-08-23 [facility] Ayleen Washington [id number] 01:07:00 18:35:00 Encounter Kelly Amaya [id number] [facility] [id number] Results This patient has no known results.
[2021-01-24] MEDS ORDERED: FAMOTIDINE 20 MG/2 ML VIAL IV ONE (15:22)
[2021-01-24] MEDS ORDERED: ONDANSETRON 4 MG/2 ML VIAL ONE (15:22)
[2021-01-24] MEDS ORDERED: HYDROMORPHONE HCL 1 MG/ML INJ ONE ×2 (15:22→17:02)
[2021-01-24] MEDS ORDERED: NA CHLORIDE 0.9% 250 ML ONE (15:22)
[2021-01-24 15:27] LABS: Absolute Lymphocytes (CBC) 2.2 K/uL (0.7-4.9); Basophils % 0.8 % (0-1.3); Hematocrit 41.5 % (39.6-49.0); Lymphocytes % 26.4 % (15.3-44.8); MPV 6.8 fL (7.6-11.3); RBC Red Blood Cell Count 5.44 M/uL (4.33-5.43)
[2021-01-24 15:37] LABS: ALT/SGPT 18 U/L (12-78); AST/SGOT 12 U/L (15-37); Albumin 3.2 g/dL (3.4-5.0); Alkaline Phosphatase 164 U/L (45-117); BUN Blood Urea Nitrogen 10 mg/dL (7-18); Bicarbonate 28 mmol/L (21-32); Bilirubin Direct 0.2 mg/dL (0-0.2); Bilirubin Total 0.4 mg/dL (0.2-1.0); Glucose Level 145 mg/dL (74-106); Lipase 110 U/L (73-393); Potassium 3.4 mmol/L (3.5-5.1); Protein, Total 7.9 g/dL (6.4-8.2); Sodium Level 138 mmol/L (136-145)
--- NOTE | 2021-01-24 16:54 | RAD REPORT ---
EXAM DESCRIPTION: CT - Abdomen Pelvis W Contrast - 01/24/2021 4:31 pm CLINICAL HISTORY: Abdominal pain COMPARISON: 2019 TECHNIQUE: Computed axial tomography of the abdomen pelvis was obtained. 100 cc Isovue-300 was admin istered intravenously. Oral contrast was not requested which limits evaluation of bowel. All CT scans are performed using dose optimization technique as appropriate and may include automated exposure control or mA/KV adjustment according to patient size. FINDINGS: Mild fatty liver. Cholecystectomy. Prominence of biliary tree. Spleen, pancreas, and adrenals appear unremarkable. Bilateral renal cysts. There is no evidence of diverticulitis. Neurostimulator device is in place. Postsurgical changes invo lve the lumbar spine Gynecomastia. Small umbilical hernia IMPRESSION: Prominence of the biliary tree. This can be a normal finding in a patient status post ch olecystectomy. Pathology such as a stricture can also result in this appearance. This should correlat ed clinically appropriate lab values
[2021-01-24] MEDS ORDERED: DIAZEPAM 10 MG/2 ML INJ SYRINGE ONE (17:11)
[2021-01-24 17:59] LABS: Urine Blood Negative (Negative); Urine Glucose Negative (Negative); Urine Protein Negative (Negative); Urine Specific Gravity 1.025 (1.005-1.030)
--- NOTE | 2021-01-24 18:03 | EDPHYS ---
Physician Documentation [facility] Name: Kiel Ngo Age: 70 yrs Sex: Male : 1950 Arrival Date: 01/24/2021 Time: 14:36 Bed 5 Private MD: ED Physician Calvin Wright HPI: 01/24 14:54 This 70 yrs old Male presents to ER via EMS with complaints of cp Nausea/Vomiting. 14:54 The patient presents to the emergency department with nausea, that is moderate, cp vomiting, that is intermittent. Onset: The symptoms/episode began/occurred yesterday. 14:55 Possible causes: withdrawal from chronic pain medications. cp 14:55 Associated signs and symptoms: Pertinent negatives: constipation, diarrhea, fever, GI cp bleeding. Patient reports history of chronic leg pain. History of pain pump that is no longer working, so he has been switched to oral pain medications. Patient reports he ran out of prescribed hydromorphone yesterday. Prescribing physician is DR Alonso. Historical: - Allergies: 14:44 Demerol; ld1 14:44 metformin; ld1 - Home Meds: 14:44 alprazolam 0.25 mg Oral tab 1 tab PRN for Anxiety [Active]; Ambien 10 mg Oral tab 1 tab ld1 once daily [Active]; Benadryl 50mg Oral [Active]; Effexor XR 150 mg Oral cp24 [Active]; hydromorphone 8 mg Oral tab 1 tab every 4 hours [Active]; Ambien 10 mg Oral tab 1 tab once daily [Active]; Humulin 70/30 55units Sub-Q at breakfast [Active]; Humulin 70/30 50 units Sub-Q at supper [Active]; Salicylic Acid/ Ceramide Cmb #1 [Active]; tizanidine 4 mg Oral cap [Active]; venlafaxine 150 mg Oral cp24 1 cap twice a day [Active]; - PMHx: 14:44 Atrial Fib; Diabetes - IDDM; Chronic pain; Hypertension; Lymphadema; psoriasis; ld1 - Immunization history:: Adult Immunizations up to date. - Social history:: Smoking status: Patient denies any tobacco usage or history of. Patient/guardian denies using alcohol, IV drugs. ROS: 15:00 Constitutional: Positive for poor PO intake, Negative for body aches, chills, fever. cp 15:00 Eyes: Negative for injury, pain, redness, and discharge. cp 15:00 Cardiovascular: Negative for chest pain, palpitations. 15:00 Respiratory: Negative for cough, shortness of breath, wheezing. 15:00 Abdomen/GI: Positive for nausea and vomiting, Negative for diarrhea, constipation, hematemesis. 15:00 MS/extremity: Positive for pain, of the right leg, chronic. 15:00 Skin: Negative for cellulitis, rash. 15:00 Neuro: Negative for altered mental status, headache, weakness. 15:00 All other systems are negative. Exam: 15:05 Constitutional: The patient appears in no acute distress, alert, awake, cp non-diaphoretic, non-toxic, well developed, well nourished. 15:05 Head/Face: Normocephalic, atraumatic. cp 15:05 Eyes: Periorbital structures: appear normal, Conjunctiva: normal, no exudate, no injection, Sclera: no appreciated abnormality, Lids and lashes: appear normal, bilaterally. 15:05 ENT: External ear(s): are unremarkable, Nose: is normal, Mouth: Lips: moist, Oral mucosa: moist, Posterior pharynx: Airway: no evidence of obstruction, patent. 15:05 Chest/axilla: Inspection: normal, Palpation: is normal, no crepitus, no tenderness. 15:05 Cardiovascular: Rate: tachycardic, Rhythm: regular, Edema: is not appreciated, JVD: is not appreciated. 15:05 Respiratory: the patient does not display signs of respiratory distress, Respirations: normal, no use of accessory muscles, no retractions, labored breathing, is not present, Breath sounds: are clear throughout, no decreased breath sounds, no stridor, no wheezing. 15:05 Abdomen/GI: Inspection: abdomen appears normal, Bowel sounds: active, all quadrants, Palpation: soft, in all quadrants, mild abdominal tenderness, in the epigastric area, rebound tenderness, is not appreciated, involuntary guarding, is not appreciated. 15:05 Back: CVA tenderness, is absent. 15:05 Skin: cellulitis, is not appreciated, no rash present. 15:05 Neuro: Orientation: to person, place \T\ time. Mentation: is normal. Vital Signs: 14:36 BP 145 / 72; Pulse 118; Resp 18; Temp 99.0(O); Pulse Ox 97% on R/A; Weight 83.91 kg; ld1 Height 5 ft. 11 in. (180.34 cm); Pain 0/10; 15:05 BP 138 / 92; Pulse 97; Resp 18; Pulse Ox 99% on R/A; Pain 0/10; ld1 16:36 BP 172 / 94; Pulse 91; Resp 18; Pulse Ox 100% ; Pain 8/10; ld1 14:36 Body Mass Index 25.80 (83.91 kg, 180.34 cm) ld1 MDM: 14:53 Patient medically screened. cp 15:00 Differential diagnosis: gastritis, viral gastroenteritis, gastroenteritis, bowel cp obstruction, dehydration, electrolyte abnormality. 17:25 Physician consultation: Madhu Francois DO was contacted at 17:15, regarding consult, cp patient's condition, reports patient missed appt yesterday and has 7 day prescription for hydromorphone at pharmacy. Would like for me to inform patient that chronic pain meds will be discontinued if he continues to miss scheduled appointments. 18:00 Data reviewed: vital signs, nurses notes, lab test result(s), radiologic studies, CT cp scan, I have discussed the patient's presentation/case with the attending Emergency Department Physician;. 18:00 Counseling: I had a detailed discussion with the patient and/or guardian regarding: the cp historical points, exam findings, and any diagnostic results supporting the discharge/admit diagnosis, lab results, radiology results, the need for outpatient follow up, a touch up painter hand, to return to the emergency department if symptoms worsen or persist or if there are any questions or concerns that arise at home. Response to treatment: the patient's symptoms have markedly improved after treatment, Nausea and pain improved, vomiting resolved, and as a result, I will discharge patient. 01/24 15:31 Order name: CBC with Automated Diff; Complete Time: 15:58 EDMS 01/24 15:59 Interpretation: Normal except: RBC 5.44; HGB 13.5; MCV 76.4; MCH 24.8; PLT 482; RDW cp 17.2; MPV 6.8. 01/24 15:37 Order name: Basic Metabolic Panel; Complete Time: 15:58 EDMS 01/24 15:59 Interpretation: Normal except: K 3.4; GLUC 145. cp 01/24 15:37 Order name: Liver (Hepatic) Function; Complete Time: 15:58 EDMS 01/24 15:37 Order name: Lipase; Complete Time: 15:58 EDMS 01/24 16:00 Order name: CT Abd/Pelvis - IV Contrast Only cp 01/24 16:55 Order name: CT; Complete Time: 17:00 EDMS 01/24 17:03 Order name: Urine Microscopic Only; Complete Time: 18:34 cp 01/24 18:35 Interpretation: Reviewed. cp 01/24 17:59 Order name: Urine Dipstick-Ancillary; Complete Time: 18:01 EDMS 01/24 18:01 Interpretation: Normal except: UKET 3+. cp 01/24 14:54 Order name: IV Saline Lock; Complete Time: 15:11 cp 01/24 14:54 Order name: Labs collected and sent; Complete Time: 15:00 cp Administered Medications: 15:05 Drug: HYDROmorphone 1 mg Route: IVP; Site: left antecubital; ld1 15:40 Follow up: Response: No adverse reaction ld1 15:05 Drug: Zofran (Ondansetron) 4 mg Route: IVP; Site: left antecubital; ld1 15:40 Follow up: Response: No adverse reaction ld1 15:05 Drug: Pepcid (famotidine) 20 mg Route: IVP; Site: left antecubital; ld1 15:40 Follow up: Response: No adverse reaction ld1 15:05 Drug: NS 0.9% 250 ml Route: IV; Rate: bolus; Site: left antecubital; ld1 15:40 Follow up: Response: No adverse reaction ld1 16:49 Drug: HYDROmorphone 1 mg Route: IVP; Site: left antecubital; ld1 18:27 Not Given (Physician Discretion): Diazepam 2 mg IVP once iw Disposition: 01/25 07:24 Co-signature as Attending Physician, Calvin Wright MD I agree with the assessment and kdr plan of care. Disposition: 01/24/21 18:02 Discharged to Home. Impression: Chronic pain syndrome, Nausea and vomiting. - Condition is Stable. - Discharge Instructions: Chronic Pain, Nausea and Vomiting, Adult. - Prescriptions for Zofran 4 mg Oral Tablet - take 1 tablet by ORAL route every 12 hours As needed; 20 tablet. - Medication Reconciliation Form, Thank You Letter, Antibiotic Education, Prescription Opioid Use form. - Follow up: Madhu Francois DO; When: 1 - 2 days; Reason: Recheck today's complaints. - Problem is chronic. - Symptoms have improved. Signatures: Dispatcher [employer] EDNH Calvin Wright MD MD [facility] Juanita Mcguire RN RN iw Stu Mcarthur PA PA cp Danna Moreno, DIEGO RN ld1 Corrections: (The following items were deleted from the chart) 01/24 17:10 17:03 Gutierrez ordered. cp ld1 17:32 17:02 CBC+H.LAB.BRZ ordered. EDNH EDMS 17:33 17:02 BASIC METABOLIC PANEL+C.LAB.BRZ ordered. EDNH EDMS 17:33 17:02 HEPATIC FUNCTION+C.LAB.BRZ ordered. EDNH EDMS 17:33 17:02 LIPASE+C.LAB.BRZ ordered. EDNH EDMS 18:36 18:02 01/24/2021 18:02 Discharged to Home. Impression: Chronic pain syndrome; Nausea iw and vomiting. Condition is Stable. Forms are Medication Reconciliation Form, Thank You Letter, Antibiotic Education, Prescription Opioid Use. Follow up: Madhu Francois; When: 1 - 2 days; Reason: Recheck today's complaints. Problem is chronic. Symptoms have improved. cp
--- NOTE | 2021-01-24 18:03 | ER ---
Nurse's Notes [facility] Name: Kiel Ngo Age: 70 yrs Sex: Male : 1950 Arrival Date: 01/24/2021 Time: 14:36 Bed 5 Private MD: Diagnosis: Chronic pain syndrome;Nausea and vomiting Presentation: 01/24 14:36 Chief complaint:. Chief complaint: EMS states: toned out for N/V. Arrived via [address] Patient states he believes it is due to his pain pump malfunctioning. Coronavirus screen: Client denies travel out of the [place] in the last 14 days. At this time, the client does not indicate any symptoms associated with coronavirus-19. Ebola Screen: No symptoms or risks identified at this time. Initial Sepsis Screen: Does the patient meet any 2 criteria? No. Patient's initial sepsis screen is negative. Does the patient have a suspected source of infection? No. Patient's initial sepsis screen is negative. Risk Assessment: Do you want to hurt yourself or someone else? Patient reports no desire to harm self or others. Onset of symptoms was January 23, 2021. Care prior to arrival: Medication(s) given: zofran 4 mg. 14:36 Method Of Arrival: EMS: [place] [id number] 14:36 Acuity: JOZEF 3 ld1 Triage Assessment: 14:44 General: Appears in no apparent distress. comfortable, Behavior is calm, cooperative, ld1 appropriate for age. Pain: Denies pain. EENT: No signs and/or symptoms were reported regarding the EENT system. Neuro: Level of Consciousness is awake, alert, obeys commands, Oriented to person, place, time, situation. Cardiovascular: Capillary refill < 3 seconds Patient's skin is warm and dry. Respiratory: Airway is patent Respiratory effort is even, unlabored, Respiratory pattern is regular, symmetrical. GI: Abdomen is flat, non-distended, Reports nausea, vomiting. : No signs and/or symptoms were reported regarding the genitourinary system. Derm: No signs and/or symptoms reported regarding the dermatologic system. Musculoskeletal: No signs and/or symptoms reported regarding the musculoskeletal system. Historical: - Allergies: 14:44 Demerol; ld1 14:44 metformin; ld1 - Home Meds: 14:44 alprazolam 0.25 mg Oral tab 1 tab PRN for Anxiety [Active]; Ambien 10 mg Oral tab 1 tab ld1 once daily [Active]; Benadryl 50mg Oral [Active]; Effexor XR 150 mg Oral cp24 [Active]; hydromorphone 8 mg Oral tab 1 tab every 4 hours [Active]; Ambien 10 mg Oral tab 1 tab once daily [Active]; Humulin 70/30 55units Sub-Q at breakfast [Active]; Humulin 70/30 50 units Sub-Q at supper [Active]; Salicylic Acid/ Ceramide Cmb #1 [Active]; tizanidine 4 mg Oral cap [Active]; venlafaxine 150 mg Oral cp24 1 cap twice a day [Active]; - PMHx: 14:44 Atrial Fib; Diabetes - IDDM; Chronic pain; Hypertension; Lymphadema; psoriasis; ld1 - Immunization history:: Adult Immunizations up to date. - Social history:: Smoking status: Patient denies any tobacco usage or history of. Patient/guardian denies using alcohol, IV drugs. Screenin:46 Abuse screen: Denies threats or abuse. Denies injuries from another. Nutritional ld1 screening: No deficits noted. Tuberculosis screening: No symptoms or risk factors identified. Fall Risk Gait-. Assessment: 14:46 Reassessment: See Triage assessment. GI: Abdomen is flat, non-distended. : No signs ld1 and/or symptoms were reported regarding the genitourinary system. EENT: No signs and/or symptoms were reported regarding the EENT system. Derm: No signs and/or symptoms reported regarding the dermatologic system. Musculoskeletal: No signs and/or symptoms reported regarding the musculoskeletal system. 15:00 Pain: Complains of pain in right ankle, medial aspect of right foot, anterior aspect of ld1 right ankle and dorsum of right foot Pain currently is 8 out of 10 on a pain scale. Quality of pain is described as throbbing, Pain began gradually, Is continuous. 15:05 Reassessment: Notified ERP of ankle pain and nausea. See MAR for orders. ld1 16:05 Reassessment: No changes from previously documented assessment. Patient and/or family ld1 updated on plan of care and expected duration. Pain level reassessed. Patient is alert, oriented x 3, equal unlabored respirations, skin warm/dry/pink. 18:28 Reassessment: Patient appears in no apparent distress at this time. Patient and/or iw family updated on plan of care and expected duration. Pain level reassessed. Patient is alert, oriented x 3, equal unlabored respirations, skin warm/dry/pink. Patient states feeling better. Patient states symptoms have improved. Vital Signs: 14:36 BP 145 / 72; Pulse 118; Resp 18; Temp 99.0(O); Pulse Ox 97% on R/A; Weight 83.91 kg; ld1 Height 5 ft. 11 in. (180.34 cm); Pain 0/10; 15:05 BP 138 / 92; Pulse 97; Resp 18; Pulse Ox 99% on R/A; Pain 0/10; ld1 16:36 BP 172 / 94; Pulse 91; Resp 18; Pulse Ox 100% ; Pain 8/10; ld1 14:36 Body Mass Index 25.80 (83.91 kg, 180.34 cm) ld1 ED Course: 14:36 Patient arrived in ED. ll1 14:36 Danna Moreno, RN is Primary Nurse. ld1 14:41 Triage completed. ld1 14:44 Arm band placed on right wrist. Patient placed in an exam room, on a stretcher, on ld1 oxygen, on loss prevention detective, on pulse oximetry. 14:46 Patient has correct armband on for positive identification. Placed in gown. Bed in low ld1 position. Call light in reach. Side rails up X 1. Door closed. Noise minimized. Warm blanket given. 14:46 No provider procedures requiring assistance completed. ld1 14:47 Stu Mcarthur PA is PHCP. cp 14:47 Calvin Wright MD is Attending Physician. cp 15:10 Inserted saline lock: 22 gauge in left antecubital area, using aseptic technique. Blood mt collected. 18:02 Madhu Francois DO is Referral Physician. cp 18:28 IV discontinued, intact, bleeding controlled, No redness/swelling at site. Pressure iw dressing applied. Administered Medications: 15:05 Drug: HYDROmorphone 1 mg Route: IVP; Site: left antecubital; ld1 15:40 Follow up: Response: No adverse reaction ld1 15:05 Drug: Zofran (Ondansetron) 4 mg Route: IVP; Site: left antecubital; ld1 15:40 Follow up: Response: No adverse reaction ld1 15:05 Drug: Pepcid (famotidine) 20 mg Route: IVP; Site: left antecubital; ld1 15:40 Follow up: Response: No adverse reaction ld1 15:05 Drug: NS 0.9% 250 ml Route: IV; Rate: bolus; Site: left antecubital; ld1 15:40 Follow up: Response: No adverse reaction ld1 16:49 Drug: HYDROmorphone 1 mg Route: IVP; Site: left antecubital; ld1 18:27 Not Given (Physician Discretion): Diazepam 2 mg IVP once iw Outcome: 18:02 Discharge ordered by MD. cp 18:36 Discharged to home via ambulance. iw 18:36 Condition: good 18:36 Discharge instructions given to patient, Instructed on discharge instructions, follow up and referral plans. medication usage, Demonstrated understanding of instructions, follow-up care, medications, Prescriptions given X 1. 18:36 Patient left the ED. iw Signatures: Juanita Mcguire, RN RN iw Stu Mcarthur PA PA cp Thompson, Moriah mt Lewis, Lynsay RN RN ll1 Danna Moreno RN RN ld1
[2021-01-24 18:27] LABS: Urine Bacteria <20 /HPF (NONE SEEN); Urine RBC <5 /HPF (NONE SEEN)
[2021-01-24 18:43] VITALS: TEMP 99
[2021-01-24 18:45] VITALS: BP 172/94; O2SAT 100
== END 2021-01-24 18:36 | disposition home or self-care (01) ==
LOC: ER 14:20
DX: G89.4 Chronic pain syndrome (principal); I10 Essential (primary) hypertension; E11.9 Type 2 diabetes mellitus without complications; I48.91 Unspecified atrial fibrillation; Z79.4 Long term (current) use of insulin; Z88.5 Allergy status to narcotic agent; Z88.8 Allergy status to other drugs, medicaments and biological substances
CPT/HCPCS: 85025; 80048; 36415; 80076; 83690; 74177; Q9967; J3360; J1170 ×2; J7050; J2405; 81003; 81015; 96374; 96375; 99284

== ENCOUNTER 2021-01-30 15:35 | Observation (INO) | payer OTHER ==
--- OUTSIDE RECORDS SUMMARY | 2021-01-30 15:37 | XMS REPORT | Continuity of Care Document ---
:1950 Author Organization [facility] t Address [address] [place] [address] Care Team Providers Name Role Phone Hawa Lagos MD Attending Clinician Lorraine CORTEZ Attending Clinician Singer WATTS Attending Clinician Kassie Harrison MD Attending Clinician Nilda Kauffman MD Attending Clinician Doctor Unassigned, Name Attending Clinician Unavailable Wilder VILLAREAL, K.H. Attending Clinician Eliot VILLAREAL Attending Clinician Samantha Washington MD Attending Clinician Kassie Harriosn MD Admitting Clinician Kika Grajeda MD Admitting [...] 2020-12-28 2020-12-28 Telephone ANNA Lagos [id number] 00:00:00 00:00:00 Calvin Shaikh [facility] [id number] CARE [id number] [place] [id number] [id number] 2020-12-19 2020-12-19 Transition Tuan Peters [id number] 00:00:00 00:00:00 of Care Ruchi Braswell [id number] [place] [id number] 2020-12-11 2020-12-17 [facility] Paco Lacey [id number] 05:11:00 16:00:00 Encounter Rene Harrison Natty [id number] [facility] [id number] 2020-11-11 2020-11-11 Orders Doctor BASILIA [id number] 00:00:00 00:00:00 Only Unassigned, NATTY [id number] [place] [facility] [id number] 2020-11-07 2020-11-07 Telephone Wilder [facility] [id number] 00:00:00 00:00:00 Angi Tobin [id number] [place] [id number] [facility] [id number] [facility] 059 [facility] 2020-10-30 2020-10-30 Orders Doctor CUI [id number] 00:00:00 00:00:00 Only Unassigned, NATTY [id number] [place] [facility] [id number] 2020-09-26 2020-09-26 Telephone STONE Mccabe 1.2.840.114 [id number] 00:00:00 00:00:00 [facility] [id number] [facility] [id number] 2020-09-01 2020-09-01 Orders Doctor CUI 1.2.840.114 [id number] 00:00:00 00:00:00 Only Unassigned, NATTY [id number] [facility] [id number] 2020-08-25 2020-08-25 Transition Tuan Peters [id number] 00:00:00 00:00:00 of Care Ruchi Braswell [id number] [place] [id number] 2020-08-21 2020-08-23 [facility] Ayleen Washington [id number] 01:07:00 18:35:00 Encounter Kelly Amaya [id number] [facility] [id number] Results This patient has no known results.
[2021-01-30] MEDS ORDERED: ONDANSETRON 4 MG/2 ML VIAL ONE (16:12)
[2021-01-30] MEDS ORDERED: MORPHINE 4 MG/ML SYR ONE (16:12)
[2021-01-30] MEDS ORDERED: NA CHLORIDE 0.9% 500 ML ONE (16:13)
[2021-01-30 16:16] LABS: Absolute Lymphocytes (CBC) 1.6 K/uL (0.7-4.9); Basophils % 0.9 % (0-1.3); Hematocrit 41.2 % (39.6-49.0); Lymphocytes % 17.1 % (15.3-44.8); MPV 6.7 fL (7.6-11.3)
[2021-01-30 17:14] LABS: SARS-COV-2 RT PCR NEGATIVE (NEGATIVE)
[2021-01-30 17:14] LABS: Albumin 3.1 g/dL (3.4-5.0); Bilirubin Direct 0.2 mg/dL (0-0.2); Bilirubin Total 0.7 mg/dL (0.2-1.0); Potassium 3.7 mmol/L (3.5-5.1); Protein, Total 7.2 g/dL (6.4-8.2)
--- NOTE | 2021-01-30 17:58 | RAD REPORT ---
EXAM DESCRIPTION: CTAbdomen Pelvis W Contrast - 01/30/2021 5:45 pm CLINICAL HISTORY: Abdominal pain. NAUSEA / VOMITING COMPARISON: Abdomen Pelvis W Contrast dated 01/24/2021; Abdomen Pelvis W Contrast dated 06/24/2018 TECHNIQUE: Biphasic CT imaging of the abdomen and pelvis was performed with 100 ml non-ionic IV cont rast. All CT scans are performed using dose optimization technique as appropriate and may include automated exposure control or mA/KV adjustment according to patient size. FINDINGS: Linear subsegmental atelectasis is present in the right lung base. The intra and extrahepatic biliary tree is mildly prominent. The gallbladder appears absent. No liver mass is evident. The spleen, adrenal glands are normal. Bilateral renal cysts are present. The body and tail of the pancreas are not visualized. No bowel obstruction, free air, free fluid or abscess. Small fat containing umbilical hernia. The ofelia endix is normal. No evidence of significant lymphadenopathy. Mild lumbar degenerative changes are present. Prominent degenerative change in both hips, greater on the right. IMPRESSION: Mild prominence of the biliary tree is again seen. This appears similar to the examination. Correlation with appropriate laboratory studies would be suggested. Elsewhere, there is no evidence of acute abnormality.
--- NOTE | 2021-01-30 18:14 | EDPHYS ---
Physician Documentation [facility] Name: Kiel Ngo Age: 70 yrs Sex: Male : 1950 Arrival Date: 01/30/2021 Time: 15:39 Bed 28 Private MD: ED Physician Michael Bosch HPI: 01/30 15:48 This 70 yrs old Male presents to ER via Unassigned with complaints of rn nausea/vomiting. 15:48 The patient presents to the emergency department with nausea, vomiting. Onset: The rn symptoms/episode began/occurred at an unknown time. Possible causes: unknown. The symptoms are aggravated by food , The symptoms are alleviated by nothing. Associated signs and symptoms: Pertinent positives: nausea, vomiting, Pertinent negatives: abdominal pain, fever, GI bleeding. Severity of symptoms: At their worst the symptoms were moderate in the emergency department the symptoms are unchanged. The patient has experienced similar episodes in the past. The patient has not recently seen a physician. Reports nausea/vomiting, not able to keep anything down, no fever, no abd pain. No headache or chest pain. Reports "problems like this for some time". . Historical: - Allergies: 15:40 Demerol; aa5 15:40 metformin; aa5 - PMHx: 15:40 Atrial Fib; Chronic pain; Diabetes - IDDM; Hypertension; Lymphadema; psoriasis; aa5 Dilaudid pain pump (pt reports last refill was December 2020); - Family history:: not pertinent. - Hospitalizations: : No recent hospitalization is reported. ROS: 18:07 Constitutional: Negative for fever, chills, and weight loss, Eyes: Negative for injury, rn pain, redness, and discharge, Neck: Negative for injury, pain, and swelling, Cardiovascular: Negative for chest pain, palpitations, and edema, Respiratory: Negative for shortness of breath, cough, wheezing, and pleuritic chest pain, Abdomen/GI: + nausea/vomiting Back: Negative for injury and pain, MS/Extremity: Negative for injury and deformity, Skin: Negative for injury, rash, and discoloration, Neuro: Negative for headache, numbness, tingling, and seizure. Exam: 15:48 Constitutional: This is a well developed, well nourished patient who is awake, alert, rn and in no acute distress. Head/Face: Normocephalic, atraumatic. Eyes: Pupils equal round and reactive to light, extra-ocular motions intact. Lids and lashes normal. Conjunctiva and sclera are non-icteric and not injected. Cornea within normal limits. Periorbital areas with no swelling, redness, or edema. ENT: dry MM Cardiovascular: Tachycardic, regular Respiratory: No increased work of breathing, no retractions or nasal flaring. Abdomen/GI: soft, non-tender, no masses Skin: Warm, dry MS/ Extremity: Pulses equal, no cyanosis. Neuro: Awake and alert, GCS 15, oriented to person, place, time, and situation. Vital Signs: 15:39 BP 147 / 107; Pulse 126; Resp 18 S; Temp 98.5(O); Pulse Ox 98% on R/A; Pain 10/10; aa5 16:30 BP 180 / 107; Pulse 109; Resp 18 S; Pulse Ox 99% on R/A; aa5 17:30 BP 172 / 105; Pulse 118; Resp 18 S; Pulse Ox 99% on R/A; aa5 18:45 BP 166 / 92; Pulse 122; Resp 16 S; Pulse Ox 97% on R/A; aa5 19:30 BP 163 / 109; Pulse 116; Resp 21; Pulse Ox 97% on R/A; jb4 MDM: 15:41 Patient medically screened. rn 18:07 Differential diagnosis: gastritis, diverticulitis, viral gastroenteritis, rn gastroenteritis, withdrawal. Data reviewed: vital signs, nurses notes, lab test result(s), radiologic studies, CT scan, and as a result, I will admit patient. Counseling: I had a detailed discussion with the patient and/or guardian regarding: the historical points, exam findings, and any diagnostic results supporting the discharge/admit diagnosis, lab results, radiology results, the need for further work-up and treatment in the hospital. Response to treatment: the patient's symptoms have mildly improved after treatment, and as a result, I will admit patient. Admission orders: after a detailed discussion of the patient's condition and case, the admit orders are written by me. ED course: Pt still throwing up, ct no acute findings, possible enteritis vs withdrawal, consulted with Dr. Snow, requests benzos for possible klonopin withdrawal and prn nausea medication. . 01/30 15:47 Order name: Basic Metabolic Panel rn 01/30 15:47 Order name: CBC with Diff rn 01/30 15:47 Order name: Hepatic Function rn 01/30 15:47 Order name: Lipase; Complete Time: 17:18 rn 01/30 15:47 Order name: CT Abd/Pelvis - IV Contrast Only; Complete Time: 18:01 rn 01/30 15:47 Order name: Basic Metabolic Panel; Complete Time: 17:18 EDMS 01/30 15:47 Order name: CBC with Automated Diff; Complete Time: 16:23 EDMS 01/30 15:47 Order name: Liver (Hepatic) Function; Complete Time: 17:18 EDMS 01/30 17:14 Order name: COVID-19/FLU A+B; Complete Time: 17:18 EDMS 01/31 02:16 Order name: Glucose, Ancillary Testing EDMS 01/31 09:11 Order name: Glucose, Ancillary Testing EDMS 01/31 12:27 Order name: Glucose, Ancillary Testing EDMS 01/30 15:47 Order name: IV Saline Lock; Complete Time: 16:28 rn 01/30 15:47 Order name: Labs collected and sent; Complete Time: 16:28 rn 01/30 15:47 Order name: EKG; Complete Time: 15:48 rn 01/30 15:47 Order name: EKG - Nurse/Tech; Complete Time: 16:28 rn Administered Medications: 15:55 Drug: NS 0.9% 1000 ml Route: IV; Rate: 1000 ml; Site: right wrist; aa5 16:28 Follow up: IV Status: Completed infusion; IV Intake: 1000ml aa5 16:00 Drug: morphine 4 mg Route: IVP; Site: left antecubital; aa5 16:07 Drug: Zofran (Ondansetron) 4 mg Route: IVP; Site: left antecubital; aa5 18:10 Drug: Phenergan 12.5 mg Route: IVP; Site: right wrist; aa5 18:10 Drug: Ativan (LORazepam) 1 mg Route: IVP; Site: right wrist; aa5 Disposition: 01/30/21 18:13 Hospitalization ordered by Isai Snow for Observation. Preliminary diagnosis are Vomiting, unspecified, Dehydration. - Bed requested for [facility] ER HOLD. - Status is Observation. aa5 - Condition is Stable. - Problem is new. - Symptoms have improved. Signatures: Dispatcher [employer] EDNC Michael Bosch MD MD rn Calderon, Audri, RN RN aa5 Rocio Rodríguez RN RN cg Corrections: (The following items were deleted from the chart) 16:34 15:48 CORONAVIRUS+MR.LAB.BRZ ordered. EDMS EDMS 16:35 15:48 Influenza Screen (A \\T\\ B)+BA.LAB.BRZ ordered. EDNC EDMS 20:40 18:13 Hospitalization Ordered by Isai Snow MD for Observation. Preliminary diagnosis cg is Vomiting, unspecified; Dehydration. Bed requested for Telemetry/MedSurg (observation). Status is Observation. Condition is Stable. Problem is new. Symptoms have improved. rn 01/31 16:00 01/30 20:40 01/30/2021 18:13 Hospitalization Ordered by Isai Snow MD for aa Observation. Preliminary diagnosis is Vomiting, unspecified; Dehydration. Bed requested for [facility] ER HOLD. Status is Observation. Condition is Stable. Problem is new. Symptoms have improved. cg
--- NOTE | 2021-01-30 18:14 | ER ---
Nurse's Notes [facility] Name: Kiel Ngo Age: 70 yrs Sex: Male : 1950 Arrival Date: 01/30/2021 Time: 15:39 Bed 28 Private MD: Diagnosis: Vomiting, unspecified;Dehydration Presentation: 01/30 15:39 Chief complaint: Patient states: vomiting x 24 hrs, denies diarrhea. Reports chronic aa5 back and right leg pain. Pt states "my pain doctor already told me not to come to the ER but I am hurting too bad". Denies cough. Pt also states "my pulse is always high when I am in pain". 15:39 Coronavirus screen: nausea, vomiting. Ebola Screen: Patient negative for fever greater aa5 than or equal to 101.5 degrees Fahrenheit, and additional compatible Ebola Virus Disease symptoms. Initial Sepsis Screen: Does the patient meet any 2 criteria? HR > 90 bpm. Does the patient have a suspected source of infection? No. Patient's initial sepsis screen is negative. Risk Assessment: Do you want to hurt yourself or someone else? Patient reports no desire to harm self or others. Onset of symptoms was January 2021. 15:39 Acuity: JOZEF 3 aa5 15:39 Method Of Arrival: EMS: [facility] aa5 15:39 Care prior to arrival: Medication(s) given: Normal saline infusion, 500 mL, zofran 4 aa5 mg, IV initiated. 20 GA, in the right wrist. Historical: - Allergies: 15:40 Demerol; aa5 15:40 metformin; aa5 - PMHx: 15:40 Atrial Fib; Chronic pain; Diabetes - IDDM; Hypertension; Lymphadema; psoriasis; aa5 Dilaudid pain pump (pt reports last refill was December 2020); - Family history:: not pertinent. - Hospitalizations: : No recent hospitalization is reported. Screenin:40 Abuse screen: Denies threats or abuse. Nutritional screening: No deficits noted. aa5 Tuberculosis screening: No symptoms or risk factors identified. Fall Risk Secondary diagnosis (15 points) impaired mobility, IV access (20 points). Total Chow Fall Scale indicates Low Risk Score (25-44 pts). Fall prevention measures have been instituted. Side Rails Up X 2 Placed close to Nursing Station. Assessment: 15:40 General: Appears uncomfortable, Behavior is calm, cooperative. Pain: Complains of pain aa5 in right leg and back Pain currently is 10 out of 10 on a pain scale. Pain began is chronic. Neuro: Level of Consciousness is awake, alert, obeys commands, Oriented to person, place, time, situation. Cardiovascular: Patient's skin is warm and dry. Rhythm is sinus tachycardia. Respiratory: Airway is patent Respiratory effort is even, unlabored, Respiratory pattern is regular, symmetrical. GI: Abdomen is round Bowel sounds present X 4 quads. Abd is soft and non tender X 4 quads. Reports nausea, vomiting. : Brief noted. EENT: No signs and/or symptoms were reported regarding the EENT system. Derm: Skin is pink, warm \\T\\ dry. Musculoskeletal: Pt reports he is non-ambulatory. 16:30 Reassessment: Patient is alert, oriented x 3, equal unlabored respirations, skin aa5 warm/dry/pink. Pt requesting more pain medication, MD was notified. . General: Appears comfortable, Pt given extra warm blankets for comfort. . 17:30 Reassessment: Patient is alert, oriented x 3, equal unlabored respirations, skin aa5 warm/dry/pink. Pt requesting more pain medication, MD was notified. . 17:47 Reassessment: Cleaned patient of urinary incontinence. Pt to CT now VIA stretcher. ss 18:40 Reassessment: Pt resting in bed with eyes closed, appears comfortable, equal and aa5 unlabored respirations, skin is pink/warm/dry. . 19:00 Reassessment: PT is resting peacefully in bed with eyes closed, respirations are even jb4 and unlabored with no s/s of pain or distress noted. 19:49 Reassessment: Patient appears in no apparent distress at this time. No changes from jb4 previously documented assessment. Patient and/or family updated on plan of care and expected duration. Pain level reassessed. 20:30 Reassessment: Patient appears in no apparent distress at this time. Patient and/or jb4 family updated on plan of care and expected duration. Pain level reassessed. Patient is alert, oriented x 3, equal unlabored respirations, skin warm/dry/pink. 20:44 Reassessment: PT admitted to ER hold. jb4 Vital Signs: 15:39 BP 147 / 107; Pulse 126; Resp 18 S; Temp 98.5(O); Pulse Ox 98% on R/A; Pain 10/10; aa5 16:30 BP 180 / 107; Pulse 109; Resp 18 S; Pulse Ox 99% on R/A; aa5 17:30 BP 172 / 105; Pulse 118; Resp 18 S; Pulse Ox 99% on R/A; aa5 18:45 BP 166 / 92; Pulse 122; Resp 16 S; Pulse Ox 97% on R/A; aa5 19:30 BP 163 / 109; Pulse 116; Resp 21; Pulse Ox 97% on R/A; jb4 ED Course: 15:39 Patient arrived in ED. aa5 15:39 Arm band placed on Patient placed in an exam room, on a stretcher. aa5 15:40 Patient has correct armband on for positive identification. Placed in gown. Bed in low aa5 position. Call light in reach. Side rails up X2. ekg monitor on. Pulse ox on. NIBP on. 15:41 Michael Bosch MD is Attending Physician. rn 15:49 Nuria Antonio RN is Primary Nurse. aa5 16:00 Initial lab(s) drawn, by me, sent to lab. Inserted saline lock: 20 gauge in left aa5 antecubital area, using aseptic technique. Blood collected. 16:00 Maintain EMS IV. Dressing intact. Good blood return noted. Site clean \\T\\ dry. Gauge \\T\\ aa 5 site: 20G to R wrist . 16:25 EKG done, by ED staff, reviewed by Michael Bosch MD COVID swab sent to lab. aa5 16:31 Triage completed. aa5 17:45 CT Abd/Pelvis - IV Contrast Only In Process Unspecified. EDMS 18:13 Isai Snow MD is Hospitalizing Provider. rn 19:00 Report given to Ankit Sheikh RN. aa5 20:50 No provider procedures requiring assistance completed. Patient admitted, IV remains in jb4 place. Administered Medications: 15:55 Drug: NS 0.9% 1000 ml Route: IV; Rate: 1000 ml; Site: right wrist; aa5 16:28 Follow up: IV Status: Completed infusion; IV Intake: 1000ml aa5 16:00 Drug: morphine 4 mg Route: IVP; Site: left antecubital; aa5 16:07 Drug: Zofran (Ondansetron) 4 mg Route: IVP; Site: left antecubital; aa5 18:10 Drug: Phenergan 12.5 mg Route: IVP; Site: right wrist; aa5 18:10 Drug: Ativan (LORazepam) 1 mg Route: IVP; Site: right wrist; aa5 Intake: 16:28 IV: 1000ml; Total: 1000ml. aa5 Outcome: 18:13 Decision to Hospitalize by Provider. rn 20:50 Admitted to ER Hold. Please see [facility] for further documentation. jb4 20:50 Condition: stable 20:50 Discharge instructions given to patient, Instructed on the need for admit, Demonstrated understanding of instructions. 01/31 16:00 Patient left the ED. aa5 Signatures: Dispatcher [employer] EDMS Michael Bosch MD MD rn Calderon, Audri, RN RN aa5 Paris Mar RN RN ss Bryson, James, RN RN jb4 Corrections: (The following items were deleted from the chart) 01/30 16:32 15:39 Chief complaint: Patient states: vomiting x 24 hrs, denies diarrhea. Reports aa5 chronic back and right leg pain. Pt states "my pain doctor already told me not to come to the ER but I am hurting too bad". Denies cough. aa5 16:43 15:39 BP 129 / 79; Pulse 126bpm; Resp 18bpm; Spontaneous; Pulse Ox 98% RA; Temp 98.5F aa5 Oral; Pain 10/10; aa5 22:57 22:56 No provider procedures requiring assistance completed. jb4 jb4 22:57 22:56 Patient admitted, IV remains in place. jb4 jb4
[2021-01-30] MEDS ORDERED: LORazepam 2 MG/ML VIAL ONE (18:27)
[2021-01-30] MEDS ORDERED: PROMETHAZINE INJ 25 MG/ML AMP ONE (18:28)
[2021-01-30] MEDS: D5 0.45 NS 1,000 ML IV SCH (20:50)
[2021-01-30] MEDS ORDERED: D5 0.45 NS 1,000 ML IV ONE (21:19)
[2021-01-30 22:14] VITALS: BMI 25.7
[2021-01-30] MEDS: ONDANSETRON 4 MG/2 ML VIAL IV PRN (23:50)
[2021-01-31] MEDS ORDERED: ONDANSETRON 4 MG/2 ML VIAL ONE ×3 (00:03→13:58)
[2021-01-31] MEDS: D5 0.45 NS 1,000 ML IV SCH (06:00)
[2021-01-31] MEDS ORDERED: D5 0.45 NS 1,000 ML IV ONE (06:17)
[2021-01-31] MEDS ORDERED: FENTANYL 25 MCG/PATCH TD ONE ×2 (07:56→08:19)
[2021-01-31] MEDS: ONDANSETRON 4 MG/2 ML VIAL IV PRN (08:08)
[2021-01-31] MEDS ORDERED: clonazePAM 0.5 MG TAB PO PRN (08:38)
[2021-01-31] MEDS ORDERED: clonazePAM 0.5 MG TAB ONE (10:21)
[2021-01-31 11:43] VITALS: O2SAT 97
[2021-01-31 12:20] VITALS: TEMP 98
[2021-01-31 13:14] VITALS: BP 163/95
[2021-01-31] MEDS ORDERED: METOCLOPRAMIDE 10MG/10ML UCUP PO ONE (15:50)
[2021-01-31] MEDS ORDERED: METOCLOPRAMIDE 5 MG TAB ONE (16:09)
--- NOTE | 2021-01-31 16:11 | EKG ---
Test Date: 2021-01-30 Test Time: 16:22:09 Field Adjuster: LUIS E MEASUREMENT RESULTS: Intervals: Rate: 101 MS: 148 QRSD: 80 QT: 400 QTc: 518 Cato: P: 54 MS: 148 QRS: 9 T: 36 INTERPRETIVE STATEMENTS: Sinus tachycardia Possible Left atrial enlargement Possible Inferior infarct, age undetermined Abnormal ECG Compared to ECG 01/05/2021 16:50:13 No significant changes Electronically Signed On 01-31-21 16:07:11 CDT by Ned Allen
--- NOTE | 2021-01-31 20:59 | P.SSS ---
Patient History Date of Service: 01/31/21 Reason for admission: NAUSEA AND VOMITING. CHORNIC History of Present Illness: MR. KELSEY IS CRIPPLED GENTLMAN WITH SEVERE COMPLICATED KNEE SURGERY IN PAST THAT LEFT HIM IN WHEELCHAIR. HE CLAIMS HE IS OUT OF PAIN MEDS BUT LATER I FOUND THAT HE VISITED DR. DURBIN IN HIS OFFICE AND WAS GIVEN ONE MONTH SUPPLY OF DILAUDID ABOUT 120 PILLS. HE TOLD ME THAT HIS PUMP IS NOT WORKING FOR 3 MONTHS AND I THOUGHT HE IS IN WITHDRAWAL OF NARCOTICS. HE IS GETTING KLONOPIN FROM ME BID FOR PANIC ATTACKS. I CONFRONTED HIM TO SEE WHY HE RAN OUT WEEKS EARLIER AND HE TOLD ME "I GUESS I TOOK TOO MANY". I TOLD HIM THAT HE CAN'T DO THAT. HE ALSO IS A POORLY CONTROLLED DIABETIC FOR LONG TIME. Allergies meperidine HCl [From Demerol] Allergy (Severe, Verified 11/17/18 00:49) Anaphylaxis metformin Allergy (Intermediate, Verified 11/17/18 00:49) Anaphylaxis Clindamycin Allergy (Uncoded 11/17/18 00:49) Unknown Home medications list reviewed: Yes - Past Medical/Surgical History Has patient received pneumonia vaccine in the past: No Diabetic: Yes -: IDDM -: ANXIETY -: AFIB -: Osteoarthritis -: Pancreatitis -: Lymphedema -: 3 foot surgeries -: PATRICIA knee surgery -: R shoulder surgery -: 3 back surgeries -: CHOLECYSTECTOMY - Family History Father -: Other (see notes) Notes: dementia Mother -: Heart disease - Social History Smoking Status: Never smoker Alcohol use: No CD- Drugs: No Caffeine use: No Place of Residence: Home Review of Systems 10-point ROS is otherwise unremarkable General: Weakness, Malaise Gastrointestinal: Nausea, Vomiting Physical Examination - Vital Signs Temperature: 98.0 F Blood Pressure: 163/95 Pulse: 126 Respirations: 16 Pulse Ox (%): 99 - Physical Exam General: Oriented x3, Mild distress, Obese HEENT: Atraumatic, PERRLA, Mucous membr. moist/pink, EOMI, Sclerae nonicteric Neck: Supple, 2+ carotid pulse no bruit, No LAD, Without JVD or thyroid abnormality Respiratory: Clear to auscultation bilaterally, Normal air movement Cardiovascular: Regular rate/rhythm, Normal S1 S2 Gastrointestinal: Normal bowel sounds, No tenderness Musculoskeletal: No tenderness Integumentary: No rashes Neurological: Normal gait, Normal speech, Normal strength at 5/5 x4 extr, Normal tone, Normal affect Lymphatics: No axilla or inguinal lymphadenopathy - Diagnosis (Problem(s)) (1) Recurrent vomiting Status: Chronic Plan: HE POSSIBLE HAS DIABETIC GASTROPARESIS. I STARTED HIM ON REGLAN. HE IS CRIPPLED AND NOT ABLE TO GO TO DOCTORS LIKE GI DOCTORS OR EVEN COME TO MY OFFICE. HE DOES MANAGE TO GO TO HIS PAIN DOCTOR. CT SHOWS NO ACUTE CHANGES. (2) Diabetic autonomic neuropathy Status: Chronic Qualifiers: Diabetes mellitus type: type 2 Qualified Code(s): E11.43 - Type 2 diabetes mellitus with diabetic autonomic (poly)neuropathy (3) Benzodiazepine withdrawal Status: Acute Plan: HE IS GIVEN 3 DAYS OF KLONOPIN AND THEN HE WILL REFILL FOR A MONTH FROM PREVIOUS REFILL. HE MUST NOT RUN OUT OF MEDS OR HE WILL SUFFER AGAIN. DR DURBIN HAS TOLD HIM NOT TO GO TO ER TO PAIN MEDS. Qualifiers: Complication of substance-induced condition: uncomplicated Qualified Code(s): F13.230 - Sedative, hypnotic or anxiolytic dependence with withdrawal, uncomplicated - Disposition Disposition: ROUTINE DISCHARGE Condition: FAIR
== END 2021-01-31 15:58 | disposition home or self-care (01) ==
LOC: ER 15:35 → ERHOLD 18:14
PROVIDERS: ADMIT Internal Medicine; ATTEND Internal Medicine
DX: R11.2 Nausea with vomiting, unspecified (principal); E11.43 Type 2 diabetes mellitus with diabetic autonomic (poly)neuropathy; F13.239 Sedative, hypnotic or anxiolytic dependence with withdrawal, unspecified; Z79.4 Long term (current) use of insulin; F41.9 Anxiety disorder, unspecified; I48.91 Unspecified atrial fibrillation; Z20.822 Contact with and (suspected) exposure to COVID-19; M19.90 Unspecified osteoarthritis, unspecified site; G89.29 Other chronic pain; L40.9 Psoriasis, unspecified; R94.31 Abnormal electrocardiogram [ECG] [EKG]
CPT/HCPCS: 0240U; 36415; 74177; 80048; 80076; 82947; 83690; 85025; 93005; 99285; G0378; J2405; J2550; J7040; J7799; Q9967

== ENCOUNTER 2021-02-12 20:23 | Emergency (ER) | payer OTHER ==
--- OUTSIDE RECORDS SUMMARY | 2021-02-12 20:26 | XMS REPORT | Continuity of Care Document ---
:1950 Author Organization [facility] t Address [address] [place] [address] Care Team Providers Name Role Phone Hawa Lagos MD Attending Clinician Lorraine CORTEZ Attending Clinician Singer WATTS Attending Clinician Kassie Harrison MD Attending Clinician Nilda Kauffman MD Attending Clinician Doctor Unassigned, Name Attending Clinician Unavailable Wilder VILLAREAL, K.H. Attending Clinician Eliot VILLAREAL Attending Clinician Samantha Washington MD Attending Clinician Hunter VILLAREAL, G Admitting Clinician Kika Grajeda MD Admitting Clinician [...] 2020-12-28 2020-12-28 Telephone ANNA Lagos [id number] 00:00:00 00:00:00 Calvin WILLIAM [id number] CARE [id number] LATASHA [id number] 2020-12-19 2020-12-19 Transition Tuan Peters [id number] 00:00:00 00:00:00 of Care Ruchi Braswell [id number] [place] [id number] 2020-12-11 2020-12-17 [facility] Singer Paco Ayleen [id number] 05:11:00 16:00:00 Encounter Rene Harrison [id number] [facility] [id number] 2020-11-11 2020-11-11 Orders Doctor CUI [id number] 00:00:00 00:00:00 Only Unassigned, NATTY [id number] [place] [id number] 2020-11-07 2020-11-07 Telephone ANNA Hdz [id number] 00:00:00 00:00:00 Angi Tobin [id number] [place] [id number] [facility] [id number] [facility] 2020-10-30 2020-10-30 Orders Doctor CIU [id number] 00:00:00 00:00:00 Only UnassignedNATTY [id number] [place] [id number] 2020-09-26 2020-09-26 Telephone STONE Mccabe [id number] 00:00:00 00:00:00 [facility] [id number] [facility] [id number] 2020-09-01 2020-09-01 Orders Doctor CUI [id number] 00:00:00 00:00:00 Only Unassigned, NATTY [id number] [facility] [id number] 2020-08-25 2020-08-25 Transition LorraineTuan [id number] 00:00:00 00:00:00 of Care Ruchi Braswell [id number] [place] [id number] 2020-08-21 2020-08-23 [facility] Ayleen Washington [id number] 01:07:00 18:35:00 Encounter Kelly Amaya [id number] [facility] [id number] Results This patient has no known results.
[2021-02-12 21:58] LABS: Absolute Lymphocytes (CBC) 1.7 K/uL (0.7-4.9); Basophils % 0.6 % (0-1.3); Hematocrit 38.9 % (39.6-49.0); Lymphocytes % 17.8 % (15.3-44.8); MPV 6.5 fL (7.6-11.3); RBC Red Blood Cell Count 5.08 M/uL (4.33-5.43)
[2021-02-12 22:12] LABS: Urine Blood Negative (Negative); Urine Glucose Negative (Negative); Urine Protein Negative (Negative); Urine Specific Gravity >=1.030 (1.005-1.030); Urine pH 5.5 (5.0-7.0)
[2021-02-12 22:15] LABS: ALT/SGPT 28 U/L (12-78); AST/SGOT 15 U/L (15-37); Alkaline Phosphatase 346 U/L (45-117); BUN Blood Urea Nitrogen 8 mg/dL (7-18); Bicarbonate 29 mmol/L (21-32); Bilirubin Direct 0.2 mg/dL (0-0.2); Bilirubin Total 0.4 mg/dL (0.2-1.0); Glucose Level 150 mg/dL (74-106); Potassium 3.5 mmol/L (3.5-5.1); Protein, Total 7.6 g/dL (6.4-8.2); Sodium Level 141 mmol/L (136-145)
[2021-02-12 22:42] LABS: Barbiturates NEGATIVE (NEGATIVE); Benzodiazepines POSITIVE (NEGATIVE); Cocaine NEGATIVE (NEGATIVE); METHAMPHETAM NEGATIVE (NEGATIVE); Methadone NEGATIVE (NEGATIVE); Opiates POSITIVE (NEGATIVE); Phencyclidine NEGATIVE (NEGATIVE); THC Cannibis NEGATIVE (NEGATIVE)
[2021-02-12 22:53] LABS: Protime INR 0.99
[2021-02-12 22:59] LABS: Blood Morphology Comment NOT SEEN (NOT SEEN); Platelet Estimate INCR; White Blood Cell Scan OK (OK)
[2021-02-13] MEDS ORDERED: ACETAMINOPHEN 325 MG TABLET ONE (03:28)
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
[2021-02-13] MEDS ORDERED: LORazepam 2 MG/ML VIAL ONE (06:38)
[2021-02-13] MEDS ORDERED: ONDANSETRON 4 MG/2 ML VIAL ONE (10:33)
[2021-02-13] MEDS ORDERED: HYDROMORPHONE HCL 2 MG/ML inj ONE (10:33)
[2021-02-13] MEDS ORDERED: HYDROMORPHONE HCL 1 MG/ML INJ ONE (10:37)
[2021-02-13] MEDS ORDERED: HYDROMORPHONE ORAL 4 MG TAB ONE (10:44)
[2021-02-13] MEDS ORDERED: ONDANSETRON 4 MG (ODT) TAB ONE (10:55)
--- NOTE | 2021-02-13 11:17 | EKG ---
Test Date: 2021-02-12 Test Time: 22:17:56 Senior Litigation Paralegal: MARGO MEASUREMENT RESULTS: Intervals: Rate: 120 HI: 120 QRSD: 80 QT: 328 QTc: 463 [place]: P: 72 HI: 120 QRS: -4 T: 9 INTERPRETIVE STATEMENTS: Sinus tachycardia Inferior infarct, age undetermined Cannot rule out Anterior infarct, age undetermined Abnormal ECG Compared to ECG 01/30/2021 16:22:09 No significant changes Electronically Signed On 02-13-21 11:17:00 CDT by Ned Allen
[2021-02-13 13:50] VITALS: TEMP 98.2
[2021-02-13 13:54] VITALS: O2SAT 99
[2021-02-13 13:55] VITALS: BP 136/119
== END 2021-02-13 13:37 | disposition home or self-care (01) ==
LOC: ER 20:23
DX: F33.9 Major depressive disorder, recurrent, unspecified (principal); G89.29 Other chronic pain; G82.20 Paraplegia, unspecified; I10 Essential (primary) hypertension; E11.9 Type 2 diabetes mellitus without complications; I48.91 Unspecified atrial fibrillation; Z20.822 Contact with and (suspected) exposure to COVID-19; Z79.4 Long term (current) use of insulin; Z88.5 Allergy status to narcotic agent; Z88.8 Allergy status to other drugs, medicaments and biological substances
CPT/HCPCS: 93005; 85025; 80048; 36415; 80320; 80329 ×2; 85610; 80076; 80307 ×8; 85730; 81003; U0003; J2405; 96372; 99284; J1170

== ENCOUNTER 2021-02-24 18:29 | Emergency (ER) | payer OTHER ==
--- OUTSIDE RECORDS SUMMARY | 2021-02-24 18:37 | XMS REPORT | Continuity of Care Document ---
:1950 Author Organization [facility] t Address [address] [place] [address] Care Team Providers Name Role Phone Hawa [...] 2020-12-28 2020-12-28 Telephone ANNA Lagos [id number] 00:00:00 00:00:00 Calvin Shaikh [facility] [id number] CARE [id number] [place] [id number] [id number] 2020-12-19 2020-12-19 Transition Tuan Peters [id number] 00:00:00 00:00:00 of Care Ruchi Braswell [id number] [place] [id number] 2020-12-11 2020-12-17 [facility] Paco Lacey [id number] 05:11:00 16:00:00 Encounter Rene Harrison Natty [id number] [facility] [id number] 2020-11-11 2020-11-11 Orders Doctor BASILIA [id number] 00:00:00 00:00:00 Only Unassigned, NATTY [id number] [place] [facility] [id number] 2020-11-07 2020-11-07 Telephone Wilder [facility] [id number] 00:00:00 00:00:00 Angi Tobin [id number] [place] [id number] [facility] [id number] [facility] 059 [facility] 2020-10-30 2020-10-30 Orders Doctor CUI [id number] 00:00:00 00:00:00 Only Unassigned, NATTY [id number] [place] [facility] [id number] 2020-09-26 2020-09-26 Telephone STONE Mccabe [id number] 00:00:00 00:00:00 [facility] [id number] [facility] [id number] 2020-09-01 2020-09-01 Orders Doctor CUI [id number] 00:00:00 00:00:00 Only Unassigned, NATTY [id number] [place] [facility] [id number] 2020-08-25 2020-08-25 Transition Tuan Peters 1.2.840.114 [id number] 00:00:00 00:00:00 of Care Ruchi Braswell [id number] [place] [id number] 2020-08-21 2020-08-23 [facility] Ayleen Washington [id number] 01:07:00 18:35:00 Encounter Kelly Amaya [id number] [facility] [id number] [id number] Results This patient has no known results.
[2021-02-24 19:36] LABS: Absolute Lymphocytes (CBC) 1.4 K/uL (0.7-4.9); Basophils % 0.5 % (0-1.3); Hematocrit 40.1 % (39.6-49.0); Lymphocytes % 15.9 % (15.3-44.8); MPV 6.4 fL (7.6-11.3); RBC Red Blood Cell Count 5.28 M/uL (4.33-5.43)
[2021-02-24 19:41] LABS: Protime INR 0.98
[2021-02-24 19:58] LABS: ALT/SGPT 16 U/L (12-78); AST/SGOT 10 U/L (15-37); Albumin 3.1 g/dL (3.4-5.0); Alkaline Phosphatase 217 U/L (45-117); BUN Blood Urea Nitrogen 9 mg/dL (7-18); Bicarbonate 27 mmol/L (21-32); Bilirubin Direct 0.2 mg/dL (0-0.2); Bilirubin Total 0.6 mg/dL (0.2-1.0); Glucose Level 177 mg/dL (74-106); Potassium 3.4 mmol/L (3.5-5.1); Protein, Total 7.5 g/dL (6.4-8.2); Sodium Level 138 mmol/L (136-145)
[2021-02-24] MEDS ORDERED: NA CHLORIDE 0.9% 1,000 ML ONE (22:28)
[2021-02-24] MEDS ORDERED: ONDANSETRON 4 MG/2 ML VIAL ONE (22:30)
[2021-02-24 23:30] LABS: Urine Blood Negative (Negative); Urine Glucose Negative (Negative); Urine Protein 1+ (Negative); Urine Specific Gravity 1.025 (1.005-1.030)
[2021-02-24 23:52] LABS: Barbiturates NEGATIVE (NEGATIVE); Benzodiazepines NEGATIVE (NEGATIVE); Cocaine NEGATIVE (NEGATIVE); METHAMPHETAM NEGATIVE (NEGATIVE); Methadone NEGATIVE (NEGATIVE); Opiates POSITIVE (NEGATIVE); Phencyclidine NEGATIVE (NEGATIVE); THC Cannibis NEGATIVE (NEGATIVE)
[2021-02-25] MEDS ORDERED: DIPHENHYDRAMINE 50 MG/ML VIAL ONE (00:28)
[2021-02-25] MEDS ORDERED: HYDROMORPHONE HCL 1 MG/ML INJ ONE ×2 (00:28→02:20)
--- NOTE | 2021-02-25 01:54 | ER ---
Nurse's Notes [facility] Name: Kiel Ngo Age: 70 yrs Sex: Male : 1950 Arrival Date: 02/24/2021 Time: 18:31 Bed 8 Private MD: Diagnosis: Depression;Chronic Pain Syndrome Presentation: 02/24 18:57 Chief complaint: EMS states: CHRONIC PAIN. Coronavirus screen: At this time, the client bp does not indicate any symptoms associated with coronavirus-19. Ebola Screen: No symptoms or risks identified at this time. Initial Sepsis Screen: Does the patient meet any 2 criteria? No. Patient's initial sepsis screen is negative. Does the patient have a suspected source of infection? No. Patient's initial sepsis screen is negative. Risk Assessment: Do you want to hurt yourself or someone else? Patient reports no desire to harm self or others. Note PT INTERMITTENTLY COMPLIANT WITH PAIN MGMT F/U, PT OFFERED APPOINTMENT AT PAIN MANAGEMENT BUT OPTED FOR 911 RIDE TO ER. Onset of symptoms is unknown. 18:57 Method Of Arrival: EMS: [facility] bp 18:57 Acuity: JOZEF 2 bp Historical: - Allergies: 19:00 metformin; bp 19:00 Demerol; bp - PMHx: 19:00 Atrial Fib; Chronic pain; Diabetes - IDDM; Dilaudid pain pump (pt reports last refill bp was December 2020); Hypertension; Lymphadema; psoriasis; - Immunization history:: Adult Immunizations up to date. - Social history:: Smoking status: Patient denies any tobacco usage or history of. Screenin:15 Abuse screen: Denies threats or abuse. Nutritional screening: No deficits noted. ea Tuberculosis screening: No symptoms or risk factors identified. Fall Risk None identified. Assessment: 19:00 General: Appears in no apparent distress. Behavior is calm, cooperative, appropriate ea for age. Pain: Complains of pain in generalized. Respiratory: Airway is patent Respiratory effort is even, unlabored, Respiratory pattern is regular, symmetrical. Derm: Skin is pink, warm \T\ dry. Musculoskeletal: Circulation, motion, and sensation intact. 20:00 Reassessment: Patient and/or family updated on plan of care and expected duration. Pain ea level reassessed. Patient is alert, oriented x 3, equal unlabored respirations, skin warm/dry/pink. 21:59 Reassessment: Patient and/or family updated on plan of care and expected duration. Pain ea level reassessed. Patient is alert, oriented x 3, equal unlabored respirations, skin warm/dry/pink. at bedside. 22:30 Reassessment: Patient and/or family updated on plan of care and expected duration. Pain ea level reassessed. Patient is alert, oriented x 3, equal unlabored respirations, skin warm/dry/pink. 23:30 Reassessment: Patient and/or family updated on plan of care and expected duration. Pain ea level reassessed. Patient is alert, oriented x 3, equal unlabored respirations, skin warm/dry/pink. 02/25 00:00 Reassessment: Patient and/or family updated on plan of care and expected duration. Pain ea level reassessed. Patient is alert, oriented x 3, equal unlabored respirations, skin warm/dry/pink. 01:48 Reassessment: Patient and/or family updated on plan of care and expected duration. Pain ea level reassessed. Patient is alert, oriented x 3, equal unlabored respirations, skin warm/dry/pink. Pt spoke with [facility]. 02:01 Reassessment: Patient and/or family updated on plan of care and expected duration. Pain ea level reassessed. Patient is alert, oriented x 3, equal unlabored respirations, skin warm/dry/pink. Discharge instruction given to patient, verbalized the understanding of instruction. Pt awaiting on ambulance for transport home. Vital Signs: 02/24 20:15 BP 135 / 85; Pulse 99; Resp 19; Temp 97.6; Pulse Ox 97% ; ea 21:44 BP 142 / 103; Pulse 109; Resp 19; Pulse Ox 96% ; ea 22:04 BP 171 / 99; Pulse 106; Resp 16; Pulse Ox 95% on R/A; ea 02/25 02:06 BP 159 / 90; Pulse 100; Resp 18; Pulse Ox 97% on R/A; ea ED Course: 02/24 18:31 Patient arrived in ED. em1 18:31 Ruben Mendoza MD is Attending Physician. mh7 18:57 Quoc Demarco, DIEGO is Primary Nurse. bp 18:59 Triage completed. bp 19:10 Inserted saline lock: 20 gauge in right antecubital area, using aseptic technique. ea Blood collected. 20:15 Arm band placed on right wrist. Patient placed in an exam room, on a stretcher, on ea pulse oximetry. 20:15 Patient has correct armband on for positive identification. Bed in low position. Call ea light in reach. Side rails up X2. 02/25 01:54 Mario Reynolds MD is Referral Physician. [facility] 01:56 No provider procedures requiring assistance completed. ea 02:30 IV discontinued, intact, bleeding controlled, No redness/swelling at site. Pressure ea dressing applied. Administered Medications: 02/24 22:16 Drug: NS 0.9% 1000 ml Route: IV; Rate: 1 bolus; Site: right antecubital; ea 02/25 02:04 Follow up: Response: No adverse reaction; IV Status: Completed infusion; IV Intake: ea 1000ml 02/24 22:16 Drug: Zofran (Ondansetron) 4 mg Route: IVP; Site: right antecubital; ea 02/25 02:04 Follow up: Response: No adverse reaction ea 00:11 Drug: Benadryl (diphenhydrAMINE) 25 mg Route: IVP; Site: right antecubital; ea 02:04 Follow up: Response: No adverse reaction ea 00:12 Drug: Dilaudid (HYDROmorphone) 1 mg Route: IVP; Site: right antecubital; ea 02:05 Follow up: Response: No adverse reaction ea 02:30 Drug: Dilaudid (HYDROmorphone) 1 mg Route: IVP; Site: right antecubital; ea 02:30 Follow up: Response: Medication administered at discharge.; RASS: Alert and Calm (0) ea Intake: 02:04 IV: 1000ml; Total: 1000ml. ea Outcome: 01:53 Discharge ordered by . 7 02:01 Discharge instructions given to patient, Instructed on discharge instructions, follow ea up and referral plans. Demonstrated understanding of instructions, follow-up care. 02:30 Discharged to home via ambulance. ea 02:30 Condition: stable 02:31 Patient left the ED. ea Signatures: Saman Suarez em1 Andra Chaparro RN RN Quoc Hagan RN RN bp Holmes, Maurice, MD MD mh7
--- NOTE | 2021-02-25 01:54 | EDPHYS ---
Physician Documentation [facility] Name: Kiel Ngo Age: 70 yrs Sex: Male : 1950 Arrival Date: 02/24/2021 Time: 18:31 Bed 8 Private MD: ED Physician Ruben Mendoza HPI: 02/24 19:04 This 70 yrs old Male presents to ER via EMS with complaints of Depression. mh7 Chronic Pain. 19:04 The patient presents to the emergency department with depression, over a relationship, mh7 Frequent arguments with spouse, Over chronic pain. Onset: The symptoms/episode began/occurred 2 week(s) ago. Past psychiatric history: Prior diagnosis: depression, Psychiatric medications include: Effexor, Primary psychiatric physician: the patient does not have a primary psychiatric physician, the patient has not had a prior suicide gesture, 19:08 Past psychiatric history: the patient does not have a previous inpatient psychiatric 7 history, the patient's last psychiatric treatment was last year. Associated signs and symptoms: Pertinent positives; depression, Pertinent negatives: abdominal pain, anxiety, chest pain, chills, delusions, fever, hallucinations, headache, homicidal ideation, nausea, night sweats, palpitations, paranoia, shortness of breath, substance abuse, suicide ideation, tremor, vomiting. Severity of symptoms: At their worst the symptoms were moderate 7 day(s) ago, in the emergency department the symptoms are unchanged. The patient has experienced similar episodes in the past, multiple times. 19:08 States that he has been feeling depressed due to frequent arguments with his and mh7 also due to his chronic pain. he also states that he ran out of his Hydromorphone and has not followed up with his pain doctor yet. He denies any suicidal or homicidal ideation. He denies any auditory or visual hallucinations.. Historical: - Allergies: 19:00 metformin; bp 19:00 Demerol; bp - PMHx: 19:00 Atrial Fib; Chronic pain; Diabetes - IDDM; Dilaudid pain pump (pt reports last refill bp was December 2020); Hypertension; Lymphadema; psoriasis; - Immunization history:: Adult Immunizations up to date. - Social history:: Smoking status: Patient denies any tobacco usage or history of. ROS: 19:08 Constitutional: Negative for fever, chills, and weight loss, Eyes: Negative for injury, mh7 pain, redness, and discharge, ENT: Negative for injury, pain, and discharge, Neck: Negative for injury, pain, and swelling, Cardiovascular: Negative for chest pain, palpitations, and edema, Respiratory: Negative for shortness of breath, cough, wheezing, and pleuritic chest pain, Abdomen/GI: Negative for abdominal pain, nausea, vomiting, diarrhea, and constipation, Back: Negative for injury and pain, : Negative for injury, bleeding, discharge, and swelling, Skin: Negative for injury, rash, and discoloration, Neuro: Negative for headache, weakness, numbness, tingling, and seizure, Allergy/Immunology: Negative for hives, rash, and allergies, Endocrine: Negative for neck swelling, polydipsia, polyuria, polyphagia, and marked weight changes, Hematologic/Lymphatic: Negative for swollen nodes, abnormal bleeding, and unusual bruising. Exam: 19:08 Constitutional: This is a well developed, well nourished patient who is awake, alert, mh7 and in no acute distress. Head/Face: Normocephalic, atraumatic. Eyes: Pupils equal round and reactive to light, extra-ocular motions intact. Lids and lashes normal. Conjunctiva and sclera are non-icteric and not injected. Cornea within normal limits. Periorbital areas with no swelling, redness, or edema. Neck: Trachea midline, no thyromegaly or masses palpated, and no cervical lymphadenopathy. Supple, full range of motion without nuchal rigidity, or vertebral point tenderness. No Meningismus. Chest/axilla: Normal chest wall appearance and motion. Nontender with no deformity. No lesions are appreciated. Cardiovascular: Regular rate and rhythm with a normal S1 and S2. No gallops, murmurs, or rubs. Normal PMI, no JVD. No pulse deficits. Respiratory: Lungs have equal breath sounds bilaterally, clear to auscultation and percussion. No rales, rhonchi or wheezes noted. No increased work of breathing, no retractions or nasal flaring. Abdomen/GI: Soft, non-tender, with normal bowel sounds. No distension or tympany. No guarding or rebound. No evidence of tenderness throughout. Back: No spinal tenderness. No costovertebral tenderness. Full range of motion. Skin: Warm, dry with normal turgor. Normal color with no rashes, no lesions, and no evidence of cellulitis. 19:08 Musculoskeletal/extremity: Extremities: paraplegia, baseline, Circulation is intact in all extremities. 19:08 Neuro: Orientation: is normal, Mentation: is normal, Memory: is normal, Cranial nerves: grossly normal, Cerebellar function: no acute changes, Motor: no acute changes, baseline paraplegia, Sensation: no acute changes, Gait: not tested. seizure activity, is not displayed by the patient, Abnormal movements: there are no abnormal movements. 19:08 Psych: Behavior/mood is cooperative, depressed, Affect is calm, Oriented to person, place, time, Patient has no thoughts/intents to harm self or others. Judgement / Insight is normal. Memory is normal. Delusions/hallucinations are not present. Vital Signs: 20:15 BP 135 / 85; Pulse 99; Resp 19; Temp 97.6; Pulse Ox 97% ; ea 21:44 BP 142 / 103; Pulse 109; Resp 19; Pulse Ox 96% ; ea 22:04 BP 171 / 99; Pulse 106; Resp 16; Pulse Ox 95% on R/A; ea 05/16 02:06 BP 159 / 90; Pulse 100; Resp 18; Pulse Ox 97% on R/A; ea MDM: 01:51 Differential diagnosis: depression, Suicidal thoughts, Chronic Pain. Data reviewed: [facility] vital signs, nurses notes, EMS record, old medical records, lab test result(s), CBC, drug level(s), electrolytes, urinalysis, urine drug screen, EKG. Data interpreted: Pulse oximetry: on room air is 95 %. Interpretation: normal. Counseling: I had a detailed discussion with the patient and/or guardian regarding: the historical points, exam findings, and any diagnostic results supporting the discharge/admit diagnosis, the presence of at least one elevated blood pressure reading (>120/80) during this emergency department visit, lab results, radiology results, the need for outpatient follow up, to return to the emergency department if symptoms worsen or persist or if there are any questions or concerns that arise at home. Response to treatment: the patient's symptoms have markedly improved after treatment. 01:53 Patient medically screened. [facility] 02/24 18:49 Order name: Acetaminophen [facility] 02/24 18:49 Order name: Basic Metabolic Panel; Complete Time: 20:21 [facility] 02/24 18:49 Order name: CBC with Diff; Complete Time: 19:42 [facility] 02/24 18:49 Order name: ETOH Level; Complete Time: 19:57 [facility] 02/24 18:49 Order name: Hepatic Function; Complete Time: 20:21 [facility] 02/24 18:49 Order name: PT-INR; Complete Time: 19:57 [facility] 02/24 18:49 Order name: Ptt, Activated; Complete Time: 19:57 [facility] 02/24 18:49 Order name: Salicylate; Complete Time: 20:21 [facility] 02/24 18:49 Order name: Urine Drug Screen; Complete Time: 00:05 [facility] 02/24 18:49 Order name: Acetaminophen Level; Complete Time: 20:21 [facility] 02/24 23:31 Order name: Urine Dipstick-Ancillary; Complete Time: 23:51 [facility] 02/24 18:49 Order name: EKG; Complete Time: 18:50 [facility] 02/24 18:49 Order name: EKG - Nurse/Tech; Complete Time: 21:42 [facility] 02/24 18:49 Order name: IV Saline Lock; Complete Time: 20:15 [facility] 02/24 18:49 Order name: Labs collected and sent; Complete Time: 20:15 [facility] 02/24 18:49 Order name: Urine Dipstick-Ancillary (obtain specimen); Complete Time: 00:20 [facility] Administered Medications: 02/24 22:16 Drug: NS 0.9% 1000 ml Route: IV; Rate: 1 bolus; Site: right antecubital; ea 02/25 02:04 Follow up: Response: No adverse reaction; IV Status: Completed infusion; IV Intake: ea 1000ml 02/24 22:16 Drug: Zofran (Ondansetron) 4 mg Route: IVP; Site: right antecubital; ea 02/25 02:04 Follow up: Response: No adverse reaction ea 00:11 Drug: Benadryl (diphenhydrAMINE) 25 mg Route: IVP; Site: right antecubital; ea 02:04 Follow up: Response: No adverse reaction ea 00:12 Drug: Dilaudid (HYDROmorphone) 1 mg Route: IVP; Site: right antecubital; ea 02:05 Follow up: Response: No adverse reaction ea 02:30 Drug: Dilaudid (HYDROmorphone) 1 mg Route: IVP; Site: right antecubital; ea 02:30 Follow up: Response: Medication administered at discharge.; RASS: Alert and Calm (0) ea Disposition: 02/25/21 01:53 Discharged to Home. Impression: Depression, Chronic Pain Syndrome. - Condition is Stable. - Discharge Instructions: Chronic Pain, Major Depressive Disorder. - Medication Reconciliation Form, Thank You Letter, Antibiotic Education, Prescription Opioid Use form. - Follow up: Private Physician; When: 1 - 2 days; Reason: Worsening of condition, Recheck today's complaints, Continuance of care, Re-evaluation by your physician. Follow up: Mario Reynolds MD; When: 1 - 2 days; Reason: Worsening of condition, Recheck today's complaints. - Problem is an ongoing problem. - Symptoms have improved. Signatures: Dispatcher [employer] EDAndra Mcdonnell RN RN ea Peltier, Brian, RN RN bp Holmes, Maurice, MD MD [facility] Corrections: (The following items were deleted from the chart) 01:53 01:53 02/25/2021 01:53 Discharged to Home. Impression: Depression; Chronic Pain mh7 Syndrome. Condition is Stable. Forms are Medication Reconciliation Form, Thank You Letter, Antibiotic Education, Prescription Opioid Use. Follow up: Private Physician; When: 1 - 2 days; Reason: Worsening of condition, Recheck today's complaints, Continuance of care, Re-evaluation by your physician. Problem is an ongoing problem. Symptoms have improved. 7 01:54 01:53 02/25/2021 01:53 Discharged to Home. Impression: Depression; Chronic Pain mh7 Syndrome. Condition is Stable. Forms are Medication Reconciliation Form, Thank You Letter, Antibiotic Education, Prescription Opioid Use. Follow up: Private Physician; When: 1 - 2 days; Reason: Worsening of condition, Recheck today's complaints, Continuance of care, Re-evaluation by your physician. Problem is an ongoing problem. Symptoms have improved. 7 02:31 01:54 02/25/2021 01:53 Discharged to Home. Impression: Depression; Chronic Pain ea Syndrome. Condition is Stable. Discharge Instructions: Chronic Pain, Major Depressive Disorder. Forms are Medication Reconciliation Form, Thank You Letter, Antibiotic Education, Prescription Opioid Use. Follow up: Private Physician; When: 1 - 2 days; Reason: Worsening of condition, Recheck today's complaints, Continuance of care, Re-evaluation by your physician. Follow up: Mario Reynolds; When: 1 - 2 days; Reason: Worsening of condition, Recheck today's complaints. Problem is an ongoing problem. Symptoms have improved. 7
[2021-02-25 02:38] VITALS: TEMP 97.6
[2021-02-25 02:42] VITALS: BP 159/90; O2SAT 97
== END 2021-02-25 02:31 | disposition home or self-care (01) ==
LOC: ER 18:29
DX: G89.4 Chronic pain syndrome (principal); I10 Essential (primary) hypertension; Z88.5 Allergy status to narcotic agent; Z88.8 Allergy status to other drugs, medicaments and biological substances
CPT/HCPCS: 96361; 93005; 85025; 80048; 36415; 80320; 80329 ×2; 85610; 80076; 80307 ×8; 85730; 81003; 96375; 96374; 99284; J1200; J1170 ×2; J7030; J2405

== ENCOUNTER 2021-02-26 06:17 | Emergency (ER) | payer OTHER ==
--- OUTSIDE RECORDS SUMMARY | 2021-02-26 06:20 | XMS REPORT | Continuity of Care Document ---
:1950 Author Organization Formerly [facility] t Address [address] [place] [address] Care Team Providers Name Role Phone Hawa [...] 2020-12-28 2020-12-28 Telephone ANNA Lagos [id number] 00:00:00 00:00:00 Calvin Shaikh [facility] [id number] CARE [id number] [place] [id number] 2020-12-19 2020-12-19 Transition Tuan Peters [id number] 00:00:00 00:00:00 of Care Ruchi Braswell [id number] [place] [id number] 2020-12-11 2020-12-17 [facility] Paco Lacey [id number] 05:11:00 16:00:00 Encounter Rene Harrison Natty [id number] [facility] [id number] [id number] 2020-11-11 2020-11-11 Orders Doctor BASILIA [id number] 00:00:00 00:00:00 Only Unassigned, NATTY [id number] [place] [facility] [id number] 2020-11-07 2020-11-07 Telephone Wilder [facility] [id number] 00:00:00 00:00:00 Angi Tobin [id number] [place] [id number] [facility] [id number] [facility] 059 [facility] 2020-10-30 2020-10-30 Orders Doctor CUI 1.2.840.114 [id number] 00:00:00 00:00:00 Only Unassigned, NATTY [id number] [place] [facility] [id number] 2020-09-26 2020-09-26 Telephone STONE Mccabe 1.2.840.114 [id number] 00:00:00 00:00:00 [facility] [id number] [facility] [id number] 2020-09-01 2020-09-01 Orders Doctor CUI [id number] 00:00:00 00:00:00 Only Unassigned, NATTY [id number] [place] [id number] 2020-08-25 2020-08-25 Transition Tuan Peters [id number] 00:00:00 00:00:00 of Care Ruchi Braswell [id number] [place] [id number] 2020-08-21 2020-08-23 [facility] Ayleen [place] 1.2.840.114 [id number] 01:07:00 18:35:00 Encounter Kelly Amaya [id number] [facility] [id number] Results This patient has no known results.
[2021-02-26 07:28] LABS: Absolute Lymphocytes (CBC) 1.8 K/uL (0.7-4.9); Basophils % 0.6 % (0-1.3); Hematocrit 43.4 % (39.6-49.0); Lymphocytes % 13.6 % (15.3-44.8); MPV 6.7 fL (7.6-11.3); RBC Red Blood Cell Count 5.72 M/uL (4.33-5.43)
[2021-02-26] MEDS ORDERED: HYDROMORPHONE HCL 1 MG/ML INJ ONE ×2 (07:40→09:16)
[2021-02-26] MEDS ORDERED: NA CHLORIDE 0.9% 50 ML ONE (07:40)
[2021-02-26] MEDS ORDERED: NA CHLORIDE 0.9% 500 ML ONE (07:40)
[2021-02-26] MEDS ORDERED: ONDANSETRON 4 MG/2 ML VIAL ONE ×2 (07:40→09:13)
[2021-02-26 07:53] LABS: ALT/SGPT 17 U/L (12-78); Albumin 3.5 g/dL (3.4-5.0); Alkaline Phosphatase 198 U/L (45-117); BUN Blood Urea Nitrogen 9 mg/dL (7-18); Bicarbonate 23 mmol/L (21-32); Bilirubin Direct 0.2 mg/dL (0-0.2); Bilirubin Total 0.9 mg/dL (0.2-1.0); Glucose Level 158 mg/dL (74-106); Lipase 73 U/L (73-393); Protein, Total 8.2 g/dL (6.4-8.2); Sodium Level 137 mmol/L (136-145)
[2021-02-26 07:54] LABS: AST/SGOT 17 U/L (15-37); Potassium 3.7 mmol/L (3.5-5.1)
--- NOTE | 2021-02-26 09:09 | EDPHYS ---
Physician Documentation [facility] Name: Kiel Ngo Age: 70 yrs Sex: Male : 1950 Arrival Date: 02/26/2021 Time: 06:18 Bed 2 Private MD: ED Physician Tonja Kimball HPI: 02/26 07:14 This 70 yrs old Male presents to ER via EMS with complaints of ma2 Nausea/Vomiting. 07:14 The patient presents to the emergency department with nausea, vomiting. Onset: The ma2 symptoms/episode began/occurred gradually, 2 day(s) ago. Associated signs and symptoms: Pertinent negatives: constipation, fever, GI bleeding, nausea. Severity of symptoms: At their worst the symptoms were mild in the emergency department the symptoms have improved. The patient has experienced similar episodes in the past. Historical: - Allergies: 06:23 Demerol; lp1 06:23 metformin; lp1 - Home Meds: 06:23 alprazolam 0.25 mg Oral tab 1 tab PRN for Anxiety [Active]; Ambien 10 mg Oral tab 1 tab lp1 once daily [Active]; Ambien 10 mg Oral tab 1 tab once daily [Active]; Benadryl 50mg Oral [Active]; Effexor XR 150 mg Oral cp24 [Active]; Humulin 70/30 55units Sub-Q at breakfast [Active]; Humulin 70/30 50 units Sub-Q at supper [Active]; hydromorphone 4 mg Oral tab 1 tab every 6 hours for Pain [Active]; Salicylic Acid/ Ceramide Cmb #1 [Active]; tizanidine 4 mg Oral cap [Active]; venlafaxine 150 mg Oral cp24 1 cap twice a day [Active]; - PMHx: 06:23 Atrial Fib; Chronic pain; Diabetes - IDDM; Dilaudid pain pump (pt reports last refill lp1 was December 2020); Hypertension; Lymphadema; psoriasis; - Immunization history:: Adult Immunizations up to date, Adult Immunizations up to date. - Social history:: Smoking status: Patient denies any tobacco usage or history of. Smoking status: Patient denies any tobacco usage or history of. - Family history:: not pertinent. ROS: 07:14 Constitutional: Negative for fever, chills, and weight loss. ma2 07:14 All other systems are negative. Exam: 07:14 Constitutional: This is a well developed, well nourished patient who is awake, alert, ma2 and in no acute distress. Head/Face: Normocephalic, atraumatic. Eyes: Pupils equal round and reactive to light, extra-ocular motions intact. Lids and lashes normal. Conjunctiva and sclera are non-icteric and not injected. Cornea within normal limits. Periorbital areas with no swelling, redness, or edema. ENT: Nares patent. No nasal discharge, no septal abnormalities noted. Tympanic membranes are normal and external auditory canals are clear. Oropharynx with no redness, swelling, or masses, exudates, or evidence of obstruction, uvula midline. Mucous membranes moist. Neck: Trachea midline, no thyromegaly or masses palpated, and no cervical lymphadenopathy. Supple, full range of motion without nuchal rigidity, or vertebral point tenderness. No Meningismus. Chest/axilla: Normal chest wall appearance and motion. Nontender with no deformity. No lesions are appreciated. Cardiovascular: Regular rate and rhythm with a normal S1 and S2. No gallops, murmurs, or rubs. Normal PMI, no JVD. No pulse deficits. Respiratory: Lungs have equal breath sounds bilaterally, clear to auscultation and percussion. No rales, rhonchi or wheezes noted. No increased work of breathing, no retractions or nasal flaring. Abdomen/GI: Soft, non-tender, with normal bowel sounds. No distension or tympany. No guarding or rebound. No evidence of tenderness throughout. MS/ Extremity: Pulses equal, no cyanosis. Neurovascular intact. Full, normal range of motion. Neuro: Awake and alert, GCS 15, oriented to person, place, time, and situation. Cranial nerves II-XII grossly intact. Motor strength 5/5 in all extremities. Sensory grossly intact. Cerebellar exam normal. Normal gait. Vital Signs: 06:20 BP 168 / 110; Pulse 121; Resp 20; Temp 97.6(O); Pulse Ox 98% on R/A; Weight 74.84 kg lp1 (R); Height 5 ft. 11 in. (180.34 cm); Pain 10/10; 07:59 BP 149 / 90; Pulse 122; Resp 15; Pulse Ox 96% ; Pain 6/10; jl7 09:03 BP 147 / 94; Pulse 113; Resp 15; Pulse Ox 97% ; Pain 6/10; jl7 06:20 Body Mass Index 23.01 (74.84 kg, 180.34 cm) lp1 MDM: 07:06 Patient medically screened. ma2 07:14 Differential diagnosis: Nonspecific abd pain, viral gastroenteritis, gastroenteritis. or2 09:07 Data reviewed: vital signs, nurses notes. Counseling: I had a detailed discussion with ma2 the patient and/or guardian regarding: the historical points, exam findings, and any diagnostic results supporting the discharge/admit diagnosis, the presence of at least one elevated blood pressure reading (>120/80) during this emergency department visit, the need for outpatient follow up. Response to treatment: the patient's symptoms have markedly improved after treatment. 02/26 07:10 Order name: Basic Metabolic Panel; Complete Time: 08:53 [facility] 02/26 07:10 Order name: CBC with Diff; Complete Time: 08:53 [facility] 02/26 07:10 Order name: Hepatic Function; Complete Time: 08:53 [facility] 02/26 07:10 Order name: Lipase; Complete Time: 08:53 [facility] 02/26 07:10 Order name: IV Saline Lock; Complete Time: 07:55 [facility] 02/26 07:10 Order name: Labs collected and sent; Complete Time: 07:55 [facility] 02/26 09:25 Order name: EKG Electrocardiogram EDMS Administered Medications: 07:30 Drug: Zofran (Ondansetron) 4 mg Route: IVP; Site: left antecubital; jl7 08:00 Follow up: Response: No adverse reaction; Nausea is decreased jl7 07:35 Drug: NS 0.9% 500 ml Route: IV; Rate: bolus; Site: left antecubital; jl7 08:45 Follow up: Response: No adverse reaction; IV Status: Completed infusion; IV Intake: jl7 500ml 07:40 Drug: Dilaudid (HYDROmorphone) 1 mg Route: IVP; Site: left antecubital; jl7 08:00 Follow up: Response: No adverse reaction; Pain is decreased 7 08:56 Drug: Zofran (Ondansetron) 4 mg Route: IVP; Site: left antecubital; jl7 09:29 Follow up: Response: No adverse reaction; Nausea is decreased jl7 08:58 Drug: Dilaudid (HYDROmorphone) 1 mg Route: IVP; Site: left antecubital; jl7 09:29 Follow up: Response: No adverse reaction; Pain is decreased jl7 Disposition: 02/26/21 09:08 Discharged to Home. Impression: Nausea and vomiting. - Condition is Stable. - Discharge Instructions: Nausea and Vomiting, Adult, [id number]. - Prescriptions for Zofran 4 mg Oral Tablet - take 1 tablet by ORAL route every 12 hours As needed; 20 tablet. - Medication Reconciliation Form, Thank You Letter, Antibiotic Education, Prescription Opioid Use form. - Follow up: Private Physician; When: Tomorrow; Reason: If symptoms return, Continuance of care. Signatures: Dispatcher [employer] EDMS Nicole Hammond RN RN lp1 Mariel Louis RN RN jl7 Andra Chaparro RN RN ea Alzahri, Mohammad, MD MD ma2 Corrections: (The following items were deleted from the chart) 09:30 09:08 02/26/2021 09:08 Discharged to Home. Impression: Nausea and vomiting. Condition jl7 is Stable. Forms are Medication Reconciliation Form, Thank You Letter, Antibiotic Education, Prescription Opioid Use. Follow up: Private Physician; When: Tomorrow; Reason: If symptoms return, Continuance of care. ma2
--- NOTE | 2021-02-26 09:09 | ER ---
Nurse's Notes [facility] Name: Kiel Ngo Age: 70 yrs Sex: Male : 1950 Arrival Date: 02/26/2021 Time: 06:18 Bed 2 Private MD: Diagnosis: Nausea and vomiting Presentation: 02/26 06:20 Chief complaint: EMS states: Called for patient with nausea, vomiting since 0000; lp1 Reports pain pump has not been working since December 2020, medication of Dilaudid; Has appt with Dr. estrella at 1530 for pain pump mgmt; Reports pain to bilateral lower legs. Coronavirus screen: Client denies travel out of the [place] in the last 14 days. At this time, the client does not indicate any symptoms associated with coronavirus-19. Ebola Screen: No symptoms or risks identified at this time. Initial Sepsis Screen: Does the patient meet any 2 criteria? No. Patient's initial sepsis screen is negative. Does the patient have a suspected source of infection? No. Patient's initial sepsis screen is negative. Risk Assessment: Do you want to hurt yourself or someone else? Patient reports no desire to harm self or others. Onset of symptoms was February 26, 2021 at 00:00. 06:20 Method Of Arrival: EMS: [facility] lp1 06:20 Acuity: JOZEF 3 lp1 Historical: - Allergies: 06:23 Demerol; lp1 06:23 metformin; lp1 - Home Meds: 06:23 alprazolam 0.25 mg Oral tab 1 tab PRN for Anxiety [Active]; Ambien 10 mg Oral tab 1 tab lp1 once daily [Active]; Ambien 10 mg Oral tab 1 tab once daily [Active]; Benadryl 50mg Oral [Active]; Effexor XR 150 mg Oral cp24 [Active]; Humulin 70/30 55units Sub-Q at breakfast [Active]; Humulin 70/30 50 units Sub-Q at supper [Active]; hydromorphone 4 mg Oral tab 1 tab every 6 hours for Pain [Active]; Salicylic Acid/ Ceramide Cmb #1 [Active]; tizanidine 4 mg Oral cap [Active]; venlafaxine 150 mg Oral cp24 1 cap twice a day [Active]; - PMHx: 06:23 Atrial Fib; Chronic pain; Diabetes - IDDM; Dilaudid pain pump (pt reports last refill lp1 was December 2020); Hypertension; Lymphadema; psoriasis; - Immunization history:: Adult Immunizations up to date, Adult Immunizations up to date. - Social history:: Smoking status: Patient denies any tobacco usage or history of. Smoking status: Patient denies any tobacco usage or history of. - Family history:: not pertinent. Screenin:19 Abuse screen: Denies threats or abuse. Nutritional screening: No deficits noted. ea Tuberculosis screening: No symptoms or risk factors identified. Fall Risk None identified. Assessment: 06:27 General: Appears in no apparent distress. Behavior is calm, cooperative, appropriate ea for age. Pain: Complains of pain in generalized pain. Neuro: Level of Consciousness is awake, alert, obeys commands, Oriented to person, place, time. Cardiovascular: Patient's skin is warm and dry. Respiratory: Airway is patent Respiratory effort is even, unlabored, Respiratory pattern is regular, symmetrical. GI: Abdomen is obese, Reports nausea, vomiting. Derm: Skin is pink, warm \T\ dry. 07:10 Reassessment: Dr. Kimball at bedside. jl7 07:20 Reassessment: Patient appears in no apparent distress at this time. Patient and/or jl7 family updated on plan of care and expected duration. Pain level reassessed. Patient is alert, oriented x 3, equal unlabored respirations, skin warm/dry/pink. Pain: Complains of pain in right leg and left leg Pain currently is 10 out of 10 on a pain scale. Pain began years ago. Is continuous. GI: Abdomen is non-distended, Reports nausea, vomiting. 09:03 Reassessment: Pt requesting another dose of Zofran and Dilaudid and to be discharged. jl7 ERD notified, VO for 4mg Zofran IVP and 1 mg Dilaudid IVP. 09:28 Reassessment: Patient appears in no apparent distress at this time. Reports decreased jl7 pain and nausea at this time, [facility] at bedside to transport pt home. Vital Signs: 06:20 BP 168 / 110; Pulse 121; Resp 20; Temp 97.6(O); Pulse Ox 98% on R/A; Weight 74.84 kg lp1 (R); Height 5 ft. 11 in. (180.34 cm); Pain 10/10; 07:59 BP 149 / 90; Pulse 122; Resp 15; Pulse Ox 96% ; Pain 6/10; jl7 09:03 BP 147 / 94; Pulse 113; Resp 15; Pulse Ox 97% ; Pain 6/10; jl7 06:20 Body Mass Index 23.01 (74.84 kg, 180.34 cm) lp1 ED Course: 06:18 Patient arrived in ED. ea 06:19 Arm band placed on right wrist. Patient placed in an exam room, on a stretcher, on ea pulse oximetry. 06:19 Patient has correct armband on for positive identification. Bed in low position. Call ea light in reach. Pulse ox on. NIBP on. 06:22 Triage completed. lp1 06:53 Inserted saline lock: 20 gauge in left antecubital area, using aseptic technique. ea ,using aseptic technique. 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 07:06 Tonja Kimball MD is Attending Physician. [facility] 07:15 Mariel Louis RN is Primary Nurse. jl7 07:30 Initial lab(s) drawn, by ED staff, sent to lab. jl7 09:28 No provider procedures requiring assistance completed. IV discontinued, intact, jl7 bleeding controlled, No redness/swelling at site. Pressure dressing applied. Administered Medications: 07:30 Drug: Zofran (Ondansetron) 4 mg Route: IVP; Site: left antecubital; jl7 08:00 Follow up: Response: No adverse reaction; Nausea is decreased jl7 07:35 Drug: NS 0.9% 500 ml Route: IV; Rate: bolus; Site: left antecubital; jl7 08:45 Follow up: Response: No adverse reaction; IV Status: Completed infusion; IV Intake: jl7 500ml 07:40 Drug: Dilaudid (HYDROmorphone) 1 mg Route: IVP; Site: left antecubital; jl7 08:00 Follow up: Response: No adverse reaction; Pain is decreased jl7 08:56 Drug: Zofran (Ondansetron) 4 mg Route: IVP; Site: left antecubital; jl7 09:29 Follow up: Response: No adverse reaction; Nausea is decreased jl7 08:58 Drug: Dilaudid (HYDROmorphone) 1 mg Route: IVP; Site: left antecubital; jl7 09:29 Follow up: Response: No adverse reaction; Pain is decreased jl7 Intake: 08:45 IV: 500ml; Total: 500ml. jl7 Outcome: 09:08 Discharge ordered by MD. castillo 09:28 Discharged to home via ambulance. jl7 09:28 Condition: stable 09:28 Discharge instructions given to patient, Instructed on discharge instructions, follow up and referral plans. medication usage, Demonstrated understanding of instructions, follow-up care, medications, Prescriptions given X 1. 09:30 Patient left the ED. jl7 Signatures: Nicole Hammond RN RN lp1 Mariel Louis RN RN jl7 Andra Chaparro RN RN ea Alzahri, Mohammad, MD MD ma2
[2021-02-26 09:38] VITALS: TEMP 97.6
[2021-02-26 09:41] VITALS: BP 147/94; O2SAT 97
== END 2021-02-26 09:30 | disposition home or self-care (01) ==
LOC: ER 06:17
DX: R11.2 Nausea with vomiting, unspecified (principal); I48.91 Unspecified atrial fibrillation; G89.29 Other chronic pain; E11.9 Type 2 diabetes mellitus without complications; Z79.4 Long term (current) use of insulin; I10 Essential (primary) hypertension; L40.9 Psoriasis, unspecified
CPT/HCPCS: 96361; 93005; 85025; 80048; 36415; 80076; 83690; 96375; 96374; 99284; J1170 ×2; J7040; J2405 ×2

== ENCOUNTER 2021-02-27 02:37 | Emergency (ER) | payer OTHER ==
--- OUTSIDE RECORDS SUMMARY | 2021-02-27 02:38 | XMS REPORT | Continuity of Care Document ---
:1950 Author Organization [facility] t Address [address] [place] [address] Care Team Providers Name Role Phone Hawa [...] 2020-12-28 2020-12-28 Telephone ANNA Lagos [id number] 00:00:00 00:00:00 Calvin Shaikh [facility] [id number] CARE [id number] [place] [id number] [id number] 2020-12-19 2020-12-19 Transition Tuan Peters [id number] 00:00:00 00:00:00 of Care Ruchi Braswell [id number] [place] [id number] 2020-12-11 2020-12-17 [facility] Paco Lacey [id number] 05:11:00 16:00:00 Encounter Rene Harrison Natty [id number] [facility] [id number] 2020-11-11 2020-11-11 Orders Doctor BASILIA [id number] 00:00:00 00:00:00 Only Unassigned, NATTY [id number] [place] [facility] [id number] 2020-11-07 2020-11-07 Telephone Wilder [facility] [id number] 00:00:00 00:00:00 Angi Tobin [id number] [place] [id number] [facility] [phone] [facility] 059 [facility] 2020-10-30 2020-10-30 Orders Doctor CUI [id number] 00:00:00 00:00:00 Only Unassigned, NATTY [id number] [place] [facility] [id number] 2020-09-26 2020-09-26 Telephone STONE Mccabe 1.2.840.114 [id number] 00:00:00 00:00:00 [facility] [id number] [facility] [id number] 2020-09-01 2020-09-01 Orders Doctor CUI [id number] 00:00:00 00:00:00 Only Unassigned, NATTY [id number] [facility] [id number] 2020-08-25 2020-08-25 Transition Tuan Peters [id number] 00:00:00 00:00:00 of Care Ruchi Braswell [id number] [place] [id number] 2020-08-21 2020-08-23 [facility] Ayleen [place] [id number] 01:07:00 18:35:00 Encounter Kelly Amaya [id number] [facility] [phone] [id number] Results This patient has no known results.
--- NOTE | 2021-02-27 03:29 | ER ---
Nurse's Notes [facility] Name: Kiel Ngo Age: 70 yrs Sex: Male : 1950 Arrival Date: 02/27/2021 Time: 02:38 Bed 6 Private MD: Diagnosis: Chronic back pain Presentation: 02/27 02:39 Ebola Screen: No symptoms or risks identified at this time. Initial Sepsis Screen: Does ea the patient meet any 2 criteria? No. Patient's initial sepsis screen is negative. Does the patient have a suspected source of infection? No. Patient's initial sepsis screen is negative. Risk Assessment: Do you want to hurt yourself or someone else? Patient reports no desire to harm self or others. Onset of symptoms was February 27, 2021. 02:39 Acuity: JOZEF 4 ea 02:42 Chief complaint: Patient states: Pt reports his pain pump has not been filled and he is ea in need of pain medication. Coronavirus screen: At this time, the client does not indicate any symptoms associated with coronavirus-19. 02:42 Method Of Arrival: EMS: [facility] ea Historical: - Allergies: 02:41 Demerol; ea 02:41 metformin; ea - PMHx: 02:41 psoriasis; Lymphadema; Hypertension; Dilaudid pain pump (pt reports last refill was ea December 2020); Diabetes - IDDM; Chronic pain; Atrial Fib; - Immunization history:: Adult Immunizations up to date. - Social history:: Smoking status: Patient denies any tobacco usage or history of. Screenin:39 Abuse screen: Denies threats or abuse. Nutritional screening: No deficits noted. ea Tuberculosis screening: No symptoms or risk factors identified. Fall Risk None identified. Assessment: 02:44 General: Appears in no apparent distress. Behavior is calm, cooperative, appropriate ea for age. Pain: Complains of pain in generalized pain. Neuro: Level of Consciousness is awake, alert, obeys commands. Respiratory: Airway is patent Respiratory effort is even, unlabored, Respiratory pattern is regular, symmetrical. Derm: Skin is pink, warm \T\ dry. 03:42 Reassessment: Patient and/or family updated on plan of care and expected duration. Pain ea level reassessed. Patient is alert, oriented x 3, equal unlabored respirations, skin warm/dry/pink. Discharge instruction given to patient verbalized the understanding of instruction. Vital Signs: 02:42 BP 152 / 97; Pulse 110; Resp 20; Temp 98; Pulse Ox 99% ; ea ED Course: 02:38 Patient arrived in ED. ea 02:39 Patient has correct armband on for positive identification. Bed in low position. Call ea light in reach. Side rails up X2. Pulse ox on. NIBP on. 02:40 Triage completed. ea 02:40 Arm band placed on right wrist. Patient placed in an exam room, on a stretcher, on ea pulse oximetry. 02:43 Shankar Lange MD is Attending Physician. henrique 02:51 Andra Chaparro, DIEGO is Primary Nurse. ea 03:32 No provider procedures requiring assistance completed. Patient did not have IV access ea during this emergency room visit. Administered Medications: 03:25 Drug: morphine 4 mg Route: IM; Site: left deltoid; ea 03:44 Follow up: Response: No adverse reaction ea 03:26 Drug: Zofran (ondansetron) 4 mg Route: IM; Site: right deltoid; ea 03:44 Follow up: Response: No adverse reaction ea Outcome: 03:28 Discharge ordered by . pkl 03:43 Discharged to home via ambulance. ea 03:43 Condition: stable 03:43 Discharge instructions given to patient, Instructed on discharge instructions, follow up and referral plans. Demonstrated understanding of instructions, follow-up care. 03:43 Patient left the ED. ea Signatures: Shankar Lange MD MD pkl Antunez, Elena RN RN kimmie
--- NOTE | 2021-02-27 03:29 | EDPHYS ---
Physician Documentation [facility] Name: Kiel Ngo Age: 70 yrs Sex: Male : 1950 Arrival Date: 02/27/2021 Time: 02:38 Bed 6 Private MD: ED Physician Shankar Lange HPI: 02/27 03:21 This 70 yrs old Male presents to ER via EMS with unknown complaint. pkl 03:21 The patient presents with pain that is chronic. The symptoms are located in the low pkl back. Patient said his pain pump broke. Unable to get refill till tomorrow. Historical: - Allergies: 02:41 Demerol; ea 02:41 metformin; ea - PMHx: 02:41 psoriasis; Lymphadema; Hypertension; Dilaudid pain pump (pt reports last refill was ea December 2020); Diabetes - IDDM; Chronic pain; Atrial Fib; - Immunization history:: Adult Immunizations up to date. - Social history:: Smoking status: Patient denies any tobacco usage or history of. ROS: 03:21 Eyes: Negative for injury, pain, redness, and discharge, ENT: Negative for injury, pkl pain, and discharge, Neck: Negative for injury, pain, and swelling, Cardiovascular: Negative for chest pain, palpitations, and edema, Respiratory: Negative for shortness of breath, cough, wheezing, and pleuritic chest pain, Abdomen/GI: Negative for abdominal pain, nausea, vomiting, diarrhea, and constipation. 03:21 Back: Positive for pain with movement. 03:21 : Negative for urinary symptoms. pkl 03:21 MS/extremity: Negative for acute changes. 03:21 Skin: Negative for rash. 03:21 Neuro: Negative for altered mental status. Exam: 03:21 Head/Face: Normocephalic, atraumatic. Eyes: Pupils equal round and reactive to light, pkl extra-ocular motions intact. Lids and lashes normal. Conjunctiva and sclera are non-icteric and not injected. Cornea within normal limits. Periorbital areas with no swelling, redness, or edema. ENT: Nares patent. No nasal discharge, no septal abnormalities noted. Tympanic membranes are normal and external auditory canals are clear. Oropharynx with no redness, swelling, or masses, exudates, or evidence of obstruction, uvula midline. Mucous membranes moist. Neck: Trachea midline, no thyromegaly or masses palpated, and no cervical lymphadenopathy. Supple, full range of motion without nuchal rigidity, or vertebral point tenderness. No Meningismus. Chest/axilla: Normal chest wall appearance and motion. Nontender with no deformity. No lesions are appreciated. Cardiovascular: Regular rate and rhythm with a normal S1 and S2. No gallops, murmurs, or rubs. Normal PMI, no JVD. No pulse deficits. Respiratory: Lungs have equal breath sounds bilaterally, clear to auscultation and percussion. No rales, rhonchi or wheezes noted. No increased work of breathing, no retractions or nasal flaring. Abdomen/GI: Soft, non-tender, with normal bowel sounds. No distension or tympany. No guarding or rebound. No evidence of tenderness throughout. 03:21 Back: pain, that is moderate, of the lower back. 03:21 : Exam negative for acute changes. 03:21 Musculoskeletal/extremity: Exam is negative for acute changes. 03:21 Skin: Exam negative for rash. 03:21 Neuro: Orientation: is normal, Mentation: is normal, Cranial nerves: grossly normal, Motor: is normal. Vital Signs: 02:42 BP 152 / 97; Pulse 110; Resp 20; Temp 98; Pulse Ox 99% ; ea MDM: 02:43 Patient medically screened. pkl 03:27 Data reviewed: vital signs, nurses notes. pkl Administered Medications: 03:25 Drug: morphine 4 mg Route: IM; Site: left deltoid; ea 03:44 Follow up: Response: No adverse reaction ea 03:26 Drug: Zofran (ondansetron) 4 mg Route: IM; Site: right deltoid; ea 03:44 Follow up: Response: No adverse reaction ea Disposition: 02/27/21 03:28 Discharged to Home. Impression: Chronic back pain. - Condition is Stable. - Medication Reconciliation Form, Thank You Letter, Antibiotic Education, Prescription Opioid Use form. - Follow up: Private Physician; When: 2 - 3 days; Reason: Re-evaluation by your physician. - Problem is chronic. - Symptoms are unchanged. Signatures: Shankar Lange MD MD pkl Antunez, Elena, RN RN kimmie Corrections: (The following items were deleted from the chart) 03:43 03:28 02/27/2021 03:28 Discharged to Home. Impression: Chronic back pain. Condition is ea Stable. Forms are Medication Reconciliation Form, Thank You Letter, Antibiotic Education, Prescription Opioid Use. Follow up: Private Physician; When: 2 - 3 days; Reason: Re-evaluation by your physician. Problem is chronic. Symptoms are unchanged. pkl
[2021-02-27] MEDS ORDERED: ONDANSETRON 4 MG/2 ML VIAL ONE (03:42)
[2021-02-27] MEDS ORDERED: MORPHINE 4 MG/ML SYR ONE (03:42)
[2021-02-27 03:48] VITALS: BP 152/97; TEMP 98; O2SAT 99
== END 2021-02-27 03:43 | disposition home or self-care (01) ==
LOC: ER 02:37
DX: G89.29 Other chronic pain (principal); I10 Essential (primary) hypertension; Z88.5 Allergy status to narcotic agent; Z88.8 Allergy status to other drugs, medicaments and biological substances
CPT/HCPCS: 96372; 99283; J2405

== ENCOUNTER 2021-03-10 15:57 | Inpatient (IN) | payer OTHER ==
--- OUTSIDE RECORDS SUMMARY | 2021-03-10 15:59 | XMS REPORT | Continuity of Care Document ---
:1950 Author Organization [facility] t Address [address] [place] [address] Care Team Providers Name Role Phone Hawa [...] 2020-12-28 2020-12-28 Telephone ANNA Lagos [id number] 00:00:00 00:00:[address] [facility] [id number] CARE [id number] [place] [phone] [id number] 2020-12-19 2020-12-19 Transition Tuan Peters [id number] 00:00:00 00:00:00 of Care Ruchi Braswell [id number] [place] [id number] [id number] 2020-12-11 2020-12-17 [facility] Paco Lacey [id number] 05:11:00 16:00:00 Encounter Rene Harrison Natty [id number] [facility] [id number] [id number] 2020-11-11 2020-11-11 Orders Doctor BASILIA [id number] 00:00:00 00:00:00 Only Unassigned, NATTY [id number] [place] [facility] [id number] 2020-11-07 2020-11-07 Telephone Wilder [facility] [id number] 00:00:00 00:00:00 Angi Tobin [id number] [place] [id number] [facility] [id number] community health 059 [facility] 2020-10-30 2020-10-30 Orders Doctor CUI 1.2.840.114 [id number] 00:00:00 00:00:00 Only Unassigned, NATTY [id number] [place] [facility] [id number] 2020-09-26 2020-09-26 Telephone STONE Mccabe 1.2.840.114 [id number] 00:00:00 00:00:00 [facility] [id number] [facility] [id number] 2020-09-01 2020-09-01 Orders Doctor CUI 1.2.840.114 [id number] 00:00:00 00:00:00 Only Unassigned, NATTY [id number] [place] [facility] [id number] 2020-08-25 2020-08-25 Transition Tuan Peters 1.2.840.114 [id number] 00:00:00 00:00:00 of Care Ruchi Braswell [id number] [place] [id number] 2020-08-21 2020-08-23 [facility] Ayleen [place] 1.2.840.114 [id number] 01:07:00 18:35:00 Encounter Kelly Amaya [id number] [facility] [phone] [id number] Results This patient has no known results.
[2021-03-10] MEDS ORDERED: DIPHENHYDRAMINE 50 MG/ML VIAL ONE (17:09)
[2021-03-10] MEDS ORDERED: METHYLPREDNISOLONE 125 MG INJ ONE (17:09)
[2021-03-10] MEDS ORDERED: FAMOTIDINE 20 MG/2 ML VIAL IV ONE (17:10)
[2021-03-10] MEDS ORDERED: ONDANSETRON 4 MG/2 ML VIAL ONE (17:10)
[2021-03-10] MEDS ORDERED: HYDROMORPHONE HCL 1 MG/ML INJ ONE (17:10)
[2021-03-10] MEDS ORDERED: CEFAZOLIN/SWI 1gm 1 GM/10 ML SYR ONE (17:11)
[2021-03-10] MEDS ORDERED: NA CHLORIDE 0.9% 1,000 ML ONE (17:11)
[2021-03-10 17:24] LABS: Absolute Lymphocytes (CBC) 1.8 K/uL (0.7-4.9); Basophils % 0.7 % (0-1.3); Hematocrit 41.1 % (39.6-49.0); Lymphocytes % 12.7 % (15.3-44.8); MPV 6.6 fL (7.6-11.3); RBC Red Blood Cell Count 5.35 M/uL (4.33-5.43)
[2021-03-10 17:26] LABS: Protime INR 1.05
[2021-03-10 17:41] LABS: ALT/SGPT 31 U/L (12-78); AST/SGOT 26 U/L (15-37); Alkaline Phosphatase 338 U/L (45-117); BUN Blood Urea Nitrogen 11 mg/dL (7-18); Bicarbonate 24 mmol/L (21-32); Bilirubin Direct 0.2 mg/dL (0-0.2); Bilirubin Total 0.6 mg/dL (0.2-1.0); Glucose Level 172 mg/dL (74-106); Magnesium 2.3 mg/dL (1.8-2.4); NT PRO-BNP 276 pg/mL (<125); Potassium 3.8 mmol/L (3.5-5.1); Protein, Total 7.2 g/dL (6.4-8.2); Sodium Level 138 mmol/L (136-145); Troponin (Emerg Dept Use Only) < 0.02 ng/mL (0.0-0.045)
--- NOTE | 2021-03-10 17:42 | RAD REPORT ---
EXAM DESCRIPTION: Reilly Single View03/10/2021 5:32 pm CLINICAL HISTORY: Chest pain COMPARISON: December 2020 FINDINGS: The lungs appear clear of acute infiltrate. The heart is normal size IMPRESSION: No acute abnormalities displayed
--- NOTE | 2021-03-10 17:48 | ER ---
Nurse's Notes [facility] Name: Kiel Ngo Age: 70 yrs Sex: Male : 1950 Arrival Date: 03/10/2021 Time: 15:58 Bed 7 Private MD: Diagnosis: Cellulitis and acute lymphangitis of trunk;Cellulitis of back [any part except buttock];Elevated white blood cell count;Type 1 diabetes mellitus;Psoriasis;Other chronic pain Presentation: 03/10 15:58 Chief complaint: EMS states: "pt is reporting chronic back pain that has been worse jd3 over the last 2-3 days. pt has a pain pump in place, but it has not been functioning since December of this year. pt is also bed bound and is not able to walk on his own.". Coronavirus screen: At this time, the client does not indicate any symptoms associated with coronavirus-19. Ebola Screen: Patient negative for fever greater than or equal to 101.5 degrees Fahrenheit, and additional compatible Ebola Virus Disease symptoms. Initial Sepsis Screen: Does the patient meet any 2 criteria? No. Patient's initial sepsis screen is negative. Does the patient have a suspected source of infection? No. Patient's initial sepsis screen is negative. Risk Assessment: Do you want to hurt yourself or someone else? Patient reports no desire to harm self or others. Onset of symptoms was March 08, 2021. 15:58 Method Of Arrival: EMS: [facility] jd3 15:58 Acuity: JOZEF 3 jd3 Historical: - Allergies: 16:01 Demerol; jd3 16:01 metformin; jd3 - Home Meds: 16:01 alprazolam 0.25 mg Oral tab 1 tab PRN for Anxiety [Active]; Ambien 10 mg Oral tab 1 tab jd3 once daily [Active]; Ambien 10 mg Oral tab 1 tab once daily [Active]; Benadryl 50mg Oral [Active]; Humulin 70/30 55units Sub-Q at breakfast [Active]; Effexor XR 150 mg Oral cp24 [Active]; hydromorphone 4 mg Oral tab 1 tab every 6 hours for Pain [Active]; Salicylic Acid/ Ceramide Cmb #1 [Active]; tizanidine 4 mg Oral cap [Active]; Humulin 70/30 50 units Sub-Q at supper [Active]; venlafaxine 150 mg Oral cp24 1 cap twice a day [Active]; - PMHx: 16:01 Dilaudid pain pump (pt reports last refill was December 2020); Hypertension; Diabetes - jd3 IDDM; Lymphadema; Chronic pain; psoriasis; Atrial Fib; - Immunization history:: Adult Immunizations up to date. - Social history:: Smoking status: Patient denies any tobacco usage or history of. - Family history:: not pertinent. Screenin:04 Abuse screen: Denies threats or abuse. Nutritional screening: No deficits noted. jd3 Tuberculosis screening: No symptoms or risk factors identified. Fall Risk Ambulatory Aid- None/Bed Rest/Nurse Assist (0 pts). Gait- Normal/Bed Rest/Wheelchair (0 pts) Mental Status- Oriented to own ability (0 pts). Total Chow Fall Scale indicates No Risk (0-24 pts). Assessment: 16:03 General: Appears in no apparent distress. comfortable, Behavior is calm, cooperative, jd3 appropriate for age. Pain: Complains of pain in back Quality of pain is described as shooting, tender. Neuro: Level of Consciousness is awake, alert, obeys commands, Oriented to person, place, time, situation. Cardiovascular: Denies chest pain, Capillary refill < 3 seconds Patient's skin is warm and dry. Respiratory: Airway is patent Respiratory effort is even, unlabored, Respiratory pattern is regular, symmetrical, Denies cough, shortness of breath. GI: No signs and/or symptoms were reported involving the gastrointestinal system. : No signs and/or symptoms were reported regarding the genitourinary system. EENT: No signs and/or symptoms were reported regarding the EENT system. Derm: Skin is intact, Skin is dry, Skin is normal, Skin temperature is warm Rash noted that is red, on back. Musculoskeletal: Circulation, motion, and sensation intact. Range of motion: intact in all extremities. 17:15 Reassessment: Patient appears in no apparent distress at this time. No changes from jd3 previously documented assessment. Patient and/or family updated on plan of care and expected duration. Pain level reassessed. Patient is alert, oriented x 3, equal unlabored respirations, skin warm/dry/pink. 18:30 Reassessment: Patient appears in no apparent distress at this time. No changes from jd3 previously documented assessment. Patient and/or family updated on plan of care and expected duration. Pain level reassessed. Patient is alert, oriented x 3, equal unlabored respirations, skin warm/dry/pink. 19:49 General: Appears in no apparent distress. Behavior is appropriate for age. Pain: ea Complains of pain in back. Neuro: Level of Consciousness is awake, alert, obeys commands, Oriented to person, place, time, situation. Cardiovascular: Patient's skin is warm and dry. Respiratory: Airway is patent Respiratory effort is even, unlabored, Respiratory pattern is regular, symmetrical. 20:11 Reassessment: Patient and/or family updated on plan of care and expected duration. Pain ea level reassessed. Patient is alert, oriented x 3, equal unlabored respirations, skin warm/dry/pink. 21:28 Reassessment: Patient and/or family updated on plan of care and expected duration. Pain ea level reassessed. Patient is alert, oriented x 3, equal unlabored respirations, skin warm/dry/pink. Pt admitted to second floor, report given to receiving nurse, pt left ED via stretcher tolerating well. Vital Signs: 16:02 BP 154 / 90; Pulse 147; Resp 15 S; Temp 98.9(TE); Pulse Ox 100% on R/A; Weight 68.49 kg jd3 (R); Height 5 ft. 11 in. (180.34 cm) (R); Pain 10/10; 17:53 BP 162 / 103; Pulse 124; Resp 17 S; Pulse Ox 94% on R/A; jd3 18:09 BP 129 / 59; Pulse 130; Resp 19 S; Pulse Ox 95% on R/A; jd3 18:47 BP 102 / 90; Pulse 135; Resp 16 S; Pulse Ox 97% on R/A; jd3 19:55 BP 128 / 76; Pulse 130; Resp 18; Pulse Ox 99% ; ea 21:00 BP 130 / 70; Pulse 132; Resp 19; Temp 98.7; Pulse Ox 100% ; ea 16:02 Body Mass Index 21.06 (68.49 kg, 180.34 cm) j ED Course: 15:58 Patient arrived in ED. jd3 16:00 Triage completed. jd3 16:03 Stu Banerjee MD is Attending Physician. chetan 16:03 Arm band placed on. jd3 16:04 Patient has correct armband on for positive identification. Placed in gown. Bed in low jd3 position. Call light in reach. Side rails up X2. pathological technician on. Pulse ox on. NIBP on. 16:35 Robbie Diez RN is Primary Nurse. jd3 16:58 Inserted saline lock: 22 gauge in left upper arm, using aseptic technique. Blood ds4 collected. 17:32 XRAY Chest (1 view) In Process Unspecified. EDMS 17:44 Isai Snow MD is Hospitalizing Provider. chetan 19:21 Primary Nurse role handed off by Robbie Diez RN tt3 19:49 Andra Chaparro RN is Primary Nurse. ea 19:50 No provider procedures requiring assistance completed. Patient admitted, IV remains in ea place. Administered Medications: 17:22 Drug: NS 0.9% 1000 ml Route: IV; Rate: 1 bolus; Site: left upper arm; jd3 20:15 Follow up: Response: No adverse reaction; IV Status: Completed infusion; IV Intake: ea 1000ml 17:23 Drug: Dilaudid (HYDROmorphone) 1 mg Route: IVP; Site: left upper arm; jd3 20:15 Follow up: Response: No adverse reaction ea 17:23 Drug: Zofran (Ondansetron) 4 mg Route: IVP; Site: left upper arm; jd3 20:15 Follow up: Response: No adverse reaction ea 17:23 Drug: Ancef (cefazolin) 1 grams Route: IVPB; Site: left upper arm; jd3 17:23 Drug: Pepcid (famotidine) 20 mg Route: IVP; Site: left upper arm; jd3 19:16 Follow up: Response: No adverse reaction ea 17:24 Drug: SOLU-Medrol (methylPrednisoLONE) 125 mg Route: IVP; Site: left upper arm; jd3 19:16 Follow up: Response: No adverse reaction ea 17:24 Drug: Benadryl (diphenhydrAMINE) 25 mg Route: IVP; Site: left antecubital; jd3 19:16 Follow up: Response: No adverse reaction ea 18:09 Drug: vancoMYCIN 1 grams Route: IVPB; Infused Over: 2 hrs; Site: left upper arm; jd3 20:14 Follow up: Response: No adverse reaction; IV Status: Completed infusion ea 19:49 Drug: DiFLUcan (fluconazole) 200 mg Route: PO; ea 20:14 Follow up: Response: No adverse reaction ea 19:49 Drug: Dilaudid (HYDROmorphone) 0.5 mg Route: IVP; Site: left upper arm; ea 20:14 Follow up: Response: No adverse reaction; RASS: Alert and Calm (0) ea Intake: 20:15 IV: 1000ml; Total: 1000ml. ea Outcome: 17:48 Decision to Hospitalize by Provider. chetan 19:50 Instructed on the need for admit, Demonstrated understanding of instructions. ea 21:26 Admitted to Med/surg accompanied by tech, via stretcher, room 220, with chart, Report ea called to Receiving nurse on second floor 21:26 Condition: stable 21:29 Patient left the ED. ea Signatures: Dispatcher [employer] EDMS Stu Banerjee MD MD cha Swanson, Donovan ds4 Andra Chaparro RN Robbie Burns ea, RN RN jd3 Trim, Tyler tt3 Corrections: (The following items were deleted from the chart) 16:05 15:58 Chief complaint: EMS states: "pt is reporting chronic back pain that has been jd3 worse over the last 2-3 days. pt has a pain pump in place, but it has not been functioning since December of this year.' jd3 03/11 11:38 03/10 16:03 Derm: Skin is intact, Skin is dry, Skin is normal, Skin temperature is warm jd3 jd3
--- NOTE | 2021-03-10 17:48 | EDPHYS ---
Physician Documentation [facility] Name: Kiel Ngo Age: 70 yrs Sex: Male : 1950 Arrival Date: 03/10/2021 Time: 15:58 Bed 7 Private MD: ED Physician Stu Banerjee HPI: 03/10 16:37 This 70 yrs old Male presents to ER via EMS with complaints of BACK PAIN, chetan SKIN RED. 16:37 The patient presents with cellulitis of the back, the patient presents with a swollen chetan area of the back. Description: erythematous, fluctuant. Onset: The symptoms/episode began/occurred 3 day(s) ago. Possible cause(s): unknown. Associated signs and symptoms: The patient has no apparent associated signs or symptoms. BACK IS RED, HOT TO TOUCH. Modifying factors: the symptoms are alleviated by remaining still, the symptoms are aggravated by movement. Severity of symptoms: At their worst the symptoms were mild, moderate, in the emergency department the symptoms are unchanged. Severity of symptoms: At their worst the symptoms were. Historical: - Allergies: 16:01 Demerol; jd3 16:01 metformin; jd3 - Home Meds: 16:01 alprazolam 0.25 mg Oral tab 1 tab PRN for Anxiety [Active]; Ambien 10 mg Oral tab 1 tab jd3 once daily [Active]; Ambien 10 mg Oral tab 1 tab once daily [Active]; Benadryl 50mg Oral [Active]; Humulin 70/30 55units Sub-Q at breakfast [Active]; Effexor XR 150 mg Oral cp24 [Active]; hydromorphone 4 mg Oral tab 1 tab every 6 hours for Pain [Active]; Salicylic Acid/ Ceramide Cmb #1 [Active]; tizanidine 4 mg Oral cap [Active]; Humulin 70/30 50 units Sub-Q at supper [Active]; venlafaxine 150 mg Oral cp24 1 cap twice a day [Active]; - PMHx: 16:01 Dilaudid pain pump (pt reports last refill was December 2020); Hypertension; Diabetes - jd3 IDDM; Lymphadema; Chronic pain; psoriasis; Atrial Fib; - Immunization history:: Adult Immunizations up to date. - Social history:: Smoking status: Patient denies any tobacco usage or history of. - Family history:: not pertinent. ROS: 16:37 Constitutional: Negative for fever, chills, and weight loss, Eyes: Negative for injury, chetan pain, redness, and discharge, ENT: Negative for injury, pain, and discharge, Neck: Negative for injury, pain, and swelling, Cardiovascular: Negative for chest pain, palpitations, and edema, Respiratory: Negative for shortness of breath, cough, wheezing, and pleuritic chest pain, Abdomen/GI: Negative for abdominal pain, nausea, vomiting, diarrhea, and constipation, : Negative for injury, bleeding, discharge, and swelling, MS/Extremity: Negative for injury and deformity, Neuro: Negative for headache, weakness, numbness, tingling, and seizure, Psych: Negative for depression, anxiety, suicide ideation, homicidal ideation, and hallucinations, Allergy/Immunology: Negative for hives, rash, and allergies, Endocrine: Negative for neck swelling, polydipsia, polyuria, polyphagia, and marked weight changes, Hematologic/Lymphatic: Negative for swollen nodes, abnormal bleeding, and unusual bruising. 16:37 Back: Positive for pain at rest, pain with movement. 16:37 Skin: Positive for swelling, of the back. Exam: 16:37 Constitutional: This is a well developed, well nourished patient who is awake, alert, chetan and in no acute distress. Head/Face: Normocephalic, atraumatic. Eyes: Pupils equal round and reactive to light, extra-ocular motions intact. Lids and lashes normal. Conjunctiva and sclera are non-icteric and not injected. Cornea within normal limits. Periorbital areas with no swelling, redness, or edema. ENT: Nares patent. No nasal discharge, no septal abnormalities noted. Tympanic membranes are normal and external auditory canals are clear. Oropharynx with no redness, swelling, or masses, exudates, or evidence of obstruction, uvula midline. Mucous membranes moist. Neck: Trachea midline, no thyromegaly or masses palpated, and no cervical lymphadenopathy. Supple, full range of motion without nuchal rigidity, or vertebral point tenderness. No Meningismus. Chest/axilla: Normal chest wall appearance and motion. Nontender with no deformity. No lesions are appreciated. Respiratory: Lungs have equal breath sounds bilaterally, clear to auscultation and percussion. No rales, rhonchi or wheezes noted. No increased work of breathing, no retractions or nasal flaring. Abdomen/GI: Soft, non-tender, with normal bowel sounds. No distension or tympany. No guarding or rebound. No evidence of tenderness throughout. Male : Normal genitalia with no discharge or lesions. MS/ Extremity: Pulses equal, no cyanosis. Neurovascular intact. Full, normal range of motion. Neuro: Awake and alert, GCS 15, oriented to person, place, time, and situation. Cranial nerves II-XII grossly intact. Motor strength 5/5 in all extremities. Sensory grossly intact. Cerebellar exam normal. Normal gait. Psych: Awake, alert, with orientation to person, place and time. Behavior, mood, and affect are within normal limits. 16:37 Cardiovascular: Rate: tachycardic, Rhythm: regular, Pulses: Pulses are 4+ in bilateral radial, brachial, femoral, popliteal, posterior tibial and and dorsalis pedis arteries.. Heart sounds: normal, normal S1and S2, no S3 or S4, no murmur, no rub, no gallop, Edema: is not appreciated, JVD: is not appreciated. 16:37 Skin: cellulitis, that is mild, that is moderate, on the back, induration, that is mild is noted, rash a moderate rash is noted, on the back. 17:48 ECG was reviewed by the Attending Physician. chetan Vital Signs: 16:02 BP 154 / 90; Pulse 147; Resp 15 S; Temp 98.9(TE); Pulse Ox 100% on R/A; Weight 68.49 kg jd3 (R); Height 5 ft. 11 in. (180.34 cm) (R); Pain 10/10; 17:53 BP 162 / 103; Pulse 124; Resp 17 S; Pulse Ox 94% on R/A; jd3 18:09 BP 129 / 59; Pulse 130; Resp 19 S; Pulse Ox 95% on R/A; jd3 18:47 BP 102 / 90; Pulse 135; Resp 16 S; Pulse Ox 97% on R/A; jd3 19:55 BP 128 / 76; Pulse 130; Resp 18; Pulse Ox 99% ; ea 21:00 BP 130 / 70; Pulse 132; Resp 19; Temp 98.7; Pulse Ox 100% ; ea 16:02 Body Mass Index 21.06 (68.49 kg, 180.34 cm) jd3 MDM: 16:03 Patient medically screened. [facility] 16:41 Differential diagnosis: allergic reaction, cellulitis. Data reviewed: vital signs, [facility] nurses notes, lab test result(s), EKG, radiologic studies, plain films. Data interpreted: manager monitoring: rate is 147 beats/min, rhythm is regular, Pulse oximetry: on room air is 100 %. Test interpretation: by ED physician or midlevel provider: ECG, plain radiologic studies. Counseling: I had a detailed discussion with the patient and/or guardian regarding: the historical points, exam findings, and any diagnostic results supporting the discharge/admit diagnosis, lab results, radiology results. 03/10 16:36 Order name: Basic Metabolic Panel [facility] 03/10 16:36 Order name: CBC with Diff [facility] 03/10 16:36 Order name: LFT's [facility] 03/10 16:36 Order name: Magnesium [facility] 03/10 16:36 Order name: NT PRO-BNP [facility] 03/10 16:36 Order name: PT-INR; Complete Time: 17:41 [facility] 03/10 16:36 Order name: Troponin (emerg Dept Use Only); Complete Time: 17:42 [facility] 03/10 16:36 Order name: Lactate; Complete Time: 17:41 [facility] 03/10 16:36 Order name: Blood Culture Adult (2) [facility] 03/10 16:36 Order name: Urine Culture [facility] 03/10 16:36 Order name: Basic Metabolic Panel; Complete Time: 17:42 [facility] 03/10 16:36 Order name: CBC with Automated Diff; Complete Time: 17:41 [facility] 03/10 16:36 Order name: Liver (Hepatic) Function; Complete Time: 17:42 [facility] 03/10 16:36 Order name: XRAY Chest (1 view); Complete Time: 17:50 [facility] 03/10 16:36 Order name: EKG; Complete Time: 16:37 [facility] 03/10 16:36 Order name: Cardiac monitoring; Complete Time: 16:37 [facility] 03/10 16:36 Order name: Magnesium; Complete Time: 17:42 [facility] 03/10 16:36 Order name: NT PRO-BNP; Complete Time: 17:42 [facility] 03/10 19:21 Order name: SARS-COV-2 RT PCR; Complete Time: 19:31 [facility] 03/10 16:36 Order name: EKG - Nurse/Tech; Complete Time: 16:58 [facility] 03/10 16:36 Order name: IV Saline Lock; Complete Time: 16:58 [facility] 03/10 16:36 Order name: Labs collected and sent; Complete Time: 16:58 [facility] 03/10 16:36 Order name: O2 Per Protocol; Complete Time: 16:37 [facility] 03/10 16:36 Order name: O2 Sat Monitoring; Complete Time: 16:37 [facility] EC:48 Rate is 148 beats/min. Rhythm is regular. QRS [place] is Normal. [place] interval is shortened chetan at 96 msec. QRS interval is normal. QT interval is normal. No Q waves. T waves are Normal. No ST changes noted. Clinical impression: Sinus tachycardia and No evidence of ischemia. Interpreted by me. Reviewed by me. Administered Medications: 17:22 Drug: NS 0.9% 1000 ml Route: IV; Rate: 1 bolus; Site: left upper arm; jd3 20:15 Follow up: Response: No adverse reaction; IV Status: Completed infusion; IV Intake: ea 1000ml 17:23 Drug: Dilaudid (HYDROmorphone) 1 mg Route: IVP; Site: left upper arm; jd3 20:15 Follow up: Response: No adverse reaction ea 17:23 Drug: Zofran (Ondansetron) 4 mg Route: IVP; Site: left upper arm; jd3 20:15 Follow up: Response: No adverse reaction ea 17:23 Drug: Ancef (cefazolin) 1 grams Route: IVPB; Site: left upper arm; jd3 17:23 Drug: Pepcid (famotidine) 20 mg Route: IVP; Site: left upper arm; jd3 19:16 Follow up: Response: No adverse reaction ea 17:24 Drug: SOLU-Medrol (methylPrednisoLONE) 125 mg Route: IVP; Site: left upper arm; jd3 19:16 Follow up: Response: No adverse reaction ea 17:24 Drug: Benadryl (diphenhydrAMINE) 25 mg Route: IVP; Site: left antecubital; jd3 19:16 Follow up: Response: No adverse reaction ea 18:09 Drug: vancoMYCIN 1 grams Route: IVPB; Infused Over: 2 hrs; Site: left upper arm; jd3 20:14 Follow up: Response: No adverse reaction; IV Status: Completed infusion ea 19:49 Drug: DiFLUcan (fluconazole) 200 mg Route: PO; ea 20:14 Follow up: Response: No adverse reaction ea 19:49 Drug: Dilaudid (HYDROmorphone) 0.5 mg Route: IVP; Site: left upper arm; ea 20:14 Follow up: Response: No adverse reaction; RASS: Alert and Calm (0) ea Disposition: 03/10/21 17:48 Hospitalization ordered by Isai Snow for Inpatient Admission. Preliminary diagnosis are Cellulitis and acute lymphangitis of trunk, Cellulitis of back [any part except buttock], Elevated white blood cell count, Type 1 diabetes mellitus, Psoriasis, Other chronic pain. - Bed requested for Telemetry/MedSurg (Inpatient). - Status is Inpatient Admission. ea - Condition is Fair. - Problem is new. - Symptoms have improved. Signatures: Dispatcher [employer] EDNV Stu Banerjee MD MD cha Attema, Lee, CRANE MANAGER-C CRANE MANAGER-[facility] Rocio Rodríguez, RN RN cg Andra Chaparro RN RN ea Davies, Jonathon, RN RN jQuoc Garza RN RN bp Corrections: (The following items were deleted from the chart) 17:50 17:48 Hospitalization Ordered by Isai Snow MD for Inpatient Admission. Preliminary [facility] diagnosis is Cellulitis and acute lymphangitis of trunk; Cellulitis of back [any part except buttock]; Elevated white blood cell count; Type 1 diabetes mellitus; Psoriasis. Bed requested for Telemetry/MedSurg (Inpatient). Status is Inpatient Admission. Condition is Fair. Problem is new. Symptoms have improved. [facility] 18:36 16:36 CORONAVIRUS+MR.LAB.EMMA ordered. [facility] 20:24 17:50 03/10/2021 17:48 Hospitalization Ordered by Isai Snow MD for Inpatient cg Admission. Preliminary diagnosis is Cellulitis and acute lymphangitis of trunk; Cellulitis of back [any part except buttock]; Elevated white blood cell count; Type 1 diabetes mellitus; Psoriasis; Other chronic pain. Bed requested for Telemetry/MedSurg (Inpatient). Status is Inpatient Admission. Condition is Fair. Problem is new. Symptoms have improved. chetan 21:29 20:24 03/10/2021 17:48 Hospitalization Ordered by Isai Snow MD for Inpatient ea Admission. Preliminary diagnosis is Cellulitis and acute lymphangitis of trunk; Cellulitis of back [any part except buttock]; Elevated white blood cell count; Type 1 diabetes mellitus; Psoriasis; Other chronic pain. Bed requested for Telemetry/MedSurg (Inpatient). Status is Inpatient Admission. Condition is Fair. Problem is new. Symptoms have improved. cg
[2021-03-10] MEDS ORDERED: NA CHLORIDE 0.9% 250 ML ONE ×2 (18:15→23:42)
[2021-03-10] MEDS ORDERED: VANCOMYCIN 1 GM/VIAL ONE ×2 (18:15→23:42)
[2021-03-10] MEDS ORDERED: NA CHLORIDE 0.9% 1,000 ML IV SCH ×2 (19:00→21:56)
[2021-03-10] MEDS ORDERED: FLUCONAZOLE 100 MG TAB ONE (19:32)
[2021-03-10] MEDS ORDERED: HYDROMORPHONE HCL 0.5 MG/0.5 ML INJ ONE (19:33)
--- NOTE | 2021-03-10 20:44 | P.HP ---
Certification for Inpatient Patient admitted to: Inpatient With expected LOS: >2 Midnights Patient will require the following post-hospital care: None Practitioner: I am a practitioner with admitting privileges, knowledge of patient current condition, hospital course, and medical plan of care. Services: Services provided to patient in accordance with Admission requirements found in Title 42 Section 412.3 of the Code of Federal Regulations Patient History Date of Service: 03/10/21 Primary Care Provider: Dr. Snow (out of town) Reason for admission: Cellulitis of the back History of Present Illness: 70-year-old male with history of diabetes mellitus type 2, hypertension, atrial fibrillation, psoriasis, debility presents emergency department for back pain. Patient evaluated in the emergency department, labs significant for white blood cell count 14.5 with left shift glucose 172 alk phos 338 BNP 276 chest x-ray without any acute findings. On exam patient with significant erythema/cellulitis of the back, patient is bed bound and spends most of his time lying on his back, his helps care for him at home. Patient extremely weak, can sometimes get up to wheelchair. ED provider wishes to admit for further evaluation and management. Allergies meperidine HCl [From Demerol] Allergy (Severe, Verified 11/17/18 00:49) Anaphylaxis metformin Allergy (Intermediate, Verified 11/17/18 00:49) Anaphylaxis Clindamycin Allergy (Uncoded 11/17/18 00:49) Unknown - Past Medical/Surgical History Diabetic: Yes -: IDDM -: ANXIETY -: AFIB -: Osteoarthritis -: Pancreatitis -: Lymphedema -: Chronic pain -: 3 foot surgeries -: PATRICIA knee surgery -: R shoulder surgery -: 3 back surgeries -: CHOLECYSTECTOMY Psychosocial/ Personal History: Lives at home with his - Family History Father -: Other (see notes) Notes: dementia Mother -: Heart disease - Social History Smoking Status: Never smoker Alcohol use: No CD- Drugs: No Caffeine use: No Review of Systems 10-point ROS is otherwise unremarkable General: Chills, Weakness, Malaise Musculoskeletal: Back Pain Integumentary: Rash, As per HPI Physical Examination - Physical Exam General: Alert, In no apparent distress, Oriented x3 HEENT: Atraumatic, PERRLA, Mucous membr. moist/pink Neck: Supple, 2+ carotid pulse no bruit, No LAD Respiratory: Clear to auscultation bilaterally, Normal air movement Cardiovascular: No edema, Normal S1 S2, Irregular heart rate/rhythm (Patient t achycardic with a heart rate between 120 and 140 appears to be sinus rhythm, patient reports his heart rate stays around a baseline of 140. Patient denies any chest pain, shortness of breath.) Capillary refill: <2 Seconds Gastrointestinal: Normal bowel sounds, No tenderness Musculoskeletal: Erythema, Tenderness, Warmth Integumentary: Rash(es) (Large area of the erythema covering the majority of patient's back, warm to touch, tender. There is some white discoloration), Tenderness/swelling, Erythema, Warmth Neurological: Normal speech, Normal strength at 5/5 x4 extr, Normal tone, Normal affect - Studies Laboratory Data (last 24 hrs) 03/10/21 17:05: PT 12.1, INR 1.05 03/10/21 17:05: WBC 14.50 H, Hgb 13.3 L, Hct 41.1, Plt Count 447 H D 03/10/21 17:05: Sodium 138, Potassium 3.8, BUN 11, Creatinine 0.72, Glucose 172 H, Magnesium 2.3, Total Bilirubin 0.6, AST 26, ALT 31, Alkaline Phosphatase 338 H Assessment and Plan - Plan Assessment Erythematous rash of the back cellulitis versus fungal infection Diabetes mellitus type 2 Chronic atrial fibrillation-unknown if on anti coagulation therapy Hypertension Chronic pain Psoriasis Medical debility Plan Erythematous rash of the back cellulitis versus fungal infection: Back appears very erythematous, warm, tender to touch. Some white discoloration noted, previously patient had similar episode and was treated with Diflucan successfully, will continue with broad-spectrum antibiotics as well as p.o. Diflucan. Daily labs, pro jose c, blood cultures obtained. DVT prophylaxis with Lovenox 40 mg subcutaneous once daily. Diabetes mellitus type 2: A.c. HS Accu-Cheks, sliding scale insulin therapy. A1c with morning labs. Chronic atrial fibrillation-unknown if on anti coagulation therapy: Will need to obtain and verify home medications, patient unsure what medications he is currently taking. Patient currently in sinus rhythm but tachycardic [id number], patient reports his baseline heart rate is some around the range. Hypertension: Obtain and continue home medications as appropriate adjust as necessary Chronic pain: Patient previously the pain pump but it has stopped working, pain management doctor believes the procedures too risky to replace it, has transition patient to oral Dilaudid at this time. Will continue patient's home medication Dilaudid. Psoriasis: Likely contributing, would benefit from followup with Dermatology. Medical debility: Patient lives at home with his , is pretty much bedbound having to use a diaper, extremely weak. Patient amendable with possible skilled placement once infection has been treated versus discharge with home health/physical therapy. Will consult physical therapy for evaluation. Discharge Plan: Home Plan to discharge in: Greater than 2 days - Advance Directives Does patient have a Living Will: No Does patient have a Durable POA for Healthcare: No - Code Status/Comfort Care Code Status Assessed: Yes Critical Care: No Time Spent Managing Pts Care (In Minutes): 55
[2021-03-10] MEDS ORDERED: VANCOMYCIN/NS 1 gm 1 GM/250 ML BAG IVPB SCH (21:56)
[2021-03-10] MEDS ORDERED: GLUCAGON 1 MG/VIAL IM PRN (21:56)
[2021-03-10] MEDS ORDERED: D50W 25 GM/50 ML SYRINGE IV PRN (21:56)
[2021-03-10] MEDS ORDERED: CEFAZOLIN/NS 1gm 1 GM/50 ML BAG IVPB SCH (21:56)
[2021-03-10 22:28] VITALS: BMI 25.7
[2021-03-10] MEDS ORDERED: VANCOMYCIN 0.25 GM in NA CHLORIDE 0.9% 100 ML IVPB ONE (23:00)
[2021-03-10] MEDS: ONDANSETRON 4 MG/2 ML VIAL IV PRN (23:03)
[2021-03-10] MEDS: HYDROMORPHONE ORAL 4 MG TAB PO PRN (23:03)
[2021-03-10] MEDS: ZOLPIDEM TARTRATE 10 MG TABLET PO PRN (23:16)
[2021-03-10] MEDS: INSULIN -REGULAR HUMAN 50 UNIT/0.5 ML ML SQ SCH (23:18)
[2021-03-11] MEDS: METHYLPREDNISOLONE 40 MG INJ IV SCH ×2 (00:38→05:19)
[2021-03-11] MEDS: CEFAZOLIN/SWI 1gm 1 GM/10 ML SYR IVP SCH ×6 (01:14→23:54)
[2021-03-11] MEDS ORDERED: CEFAZOLIN/SWI 1gm 1 GM/10 ML SYR ONE (01:30)
[2021-03-11] MEDS: HYDROMORPHONE ORAL 4 MG TAB PO PRN ×3 (04:16→16:10)
[2021-03-11] MEDS ORDERED: CEFAZOLIN SODIUM 1 GM/VIAL ONE (04:41)
[2021-03-11 06:07] LABS: Absolute Lymphocytes (CBC) 0.7 K/uL (0.7-4.9); Basophils % 0.2 % (0-1.3); Hematocrit 41.6 % (39.6-49.0); Lymphocytes % 9.4 % (15.3-44.8); RBC Red Blood Cell Count 5.36 M/uL (4.33-5.43)
[2021-03-11 06:18] LABS: C-Reactive Protein 81.6 mg/L (<3.00); Potassium 4.2 mmol/L (3.5-5.1)
--- NOTE | 2021-03-11 07:27 | RAD REPORT ---
EXAM DESCRIPTION: RAD - Chest Single View - 03/11/2021 6:20 am CLINICAL HISTORY: Chest pain COMPARISON: Portable March 10 TECHNIQUE: AP portable chest image was obtained 03/11/2021 6:20 am . FINDINGS: Lung volumes are low but clear of a focal mass or consolidation. Mild prominence of the in terstitial markings matches prior day study. Heart and vasculature are normal. No measurable pleural effusion and no pneumothorax. No acute bony abnormality seen. No acute aortic findings suspected. IMPRESSION: No acute cardiopulmonary process. Stable chest from prior day imaging.
--- NOTE | 2021-03-11 07:59 | P.PN ---
Subjective Date of Service: 03/11/21 Primary Care Provider: Dr. Snow (out of [facility]); Pain management-Dr. Francois Chief Complaint: Cellulitis of the back Subjective: Other (Patient doing well at this time.) Physical Examination - Vital Signs Temperature: 98.8 F Blood Pressure: 146/82 Pulse: 113 Respirations: 18 Pulse Ox (%): 97 - Studies Laboratory Data (last 24 hrs) 03/10/21 17:05: PT 12.1, INR 1.05 03/10/21 17:05: WBC 14.50 H, Hgb 13.3 L, Hct 41.1, Plt Count 447 H D 03/10/21 17:05: Sodium 138, Potassium 3.8, BUN 11, Creatinine 0.72, Glucose 172 H, Magnesium 2.3, Total Bilirubin 0.6, AST 26, ALT 31, Alkaline Phosphatase 338 H Assessment & Plan Discharge Plan: Home Plan to discharge in: 48 Hours Physician Review Additional Text: Physical Exam: GENERAL: [The patient is a well-developed, well-nourished, in no apparent distress. Alert and oriented x3.] VITAL SIGNS: [Reviewed] HEENT: [Head is normocephalic and atraumatic. Extraocular muscles are intact. Pupils are equal, round, and reactive to light and accommodation. Nares appeared normal. Mouth is well hydrated and without lesions. Mucous membranes are moist. ] NECK: [Supple. No carotid bruits. No lymphadenopathy or thyromegaly.] LUNGS: [Clear to auscultation. No crackles or wheezes are heard.] HEART: [Regular rate and rhythm, no appreciable gallops, rubs, murmurs or extra heart sounds] ABDOMEN: [Soft, nontender, and nondistended. Positive bowel sounds. No hepatosplenomegaly was noted.] EXTREMITIES: [Without any cyanosis, clubbing, rash, lesions or peripheral edema.] NEUROLOGIC: [The patient is oriented to person, place and time. Strength and sensation are grossly intact. Face is symmetric.] SKIN: [Normal color, turgor and temperature. No ulcerations or rashes noted.] Impression: Erythematous rash of the back likely cellulitis, suspect fungal versus bacterial infection Diabetes mellitus type 2 Chronic atrial fibrillation-unknown if on anti coagulation therapy Hypertension Chronic pain Psoriasis Medical debility Plan Erythematous rash of the back likely cellulitis, suspect fungal versus bacterial infection: Rash remains slightly erythematous and warm. Consider fungal versus bacterial. Medications reviewed. Will discontinue vancomycin and Solu-Medrol. Continue Unasyn and Diflucan. Will need to keep area dry. Frequent change of position every 2 hours. We will add nystatin powder to the back. Infectious disease consulted to further evaluate. Cultures obtained. DVT prophylaxis in place. Patient with chronic pain. Pain medication restarted. Will monitor closely. Physical therapy to assess ambulation. This is compromised due to his chronic back pain. Await recommendations from infectious disease. Anticipate improvement likely home in the next 48 hours. I will turn the service over to the hospitalist team tomorrow. I will go plan of care with him. Diabetes mellitus type 2: Hemoglobin A1c 6.7. Will need to obtain and verify home medication. Accu-Cheks in place. Will monitor closely. Chronic atrial fibrillation-unknown if on anti coagulation therapy: Patient with sinus tachycardia. DVT prophylaxis in place. Will start metoprolol. Will need to verify and obtain home medication. Hypertension: Obtain and verify home medication. Will start metoprolol. Chronic pain: Patient with history of pain pump. This is nonfunctional. Patient sees pain specialist as an outpatient. Continue with his oral Dilaudid for pain. Physical therapy and Occupational Therapy to assess ambulation. Psoriasis: Patient can see dermatology as an outpatient. Medical debility: Patient lives at home with his , is pretty much bedbound having to use a diaper, extremely weak. Need to consider home with home health and physical therapy. May need additional needs at home. Other option would be skilled placement. We will have social work evaluate this further. Code Status: [Full Code] DVT prophylaxis: [Lovenox] Advanced Care Planning-30 minutes: Anticipate patient going back home with home health and physical therapy with additional needs. We will have social director address this. Other option would include skilled placement.. Time Spent Managing Pts Care (In Minutes): 55
[2021-03-11] MEDS ORDERED: D50W 25 GM/50 ML VIAL IV PRN (08:00)
[2021-03-11 08:05] LABS: Platelet Estimate ADEQ
[2021-03-11 08:06] LABS: Blood Morphology Comment NOT SEEN (NOT SEEN)
[2021-03-11] MEDS ORDERED: FAMOTIDINE 20 MG/2 ML VIAL IV SCH (09:00)
[2021-03-11] MEDS ORDERED: PNEUMOCOCCAL VACCINE 0.5 ML IMVAC ONE (09:00)
[2021-03-11] MEDS: FLUCONAZOLE 100 MG TAB PO SCH (09:53)
[2021-03-11] MEDS: FAMOTIDINE 20 MG TAB PO SCH ×2 (09:53→21:08)
[2021-03-11] MEDS: LACTOBACILLUS/ACIDOPHILUS TAB PO SCH ×3 (09:54→21:08)
[2021-03-11] MEDS: METOPROLOL TAR 25 MG TAB PO SCH ×2 (09:55→13:16)
[2021-03-11] MEDS: INSULIN -REGULAR HUMAN 50 UNIT/0.5 ML ML SQ SCH ×4 (09:56→21:09)
[2021-03-11] MEDS: NYSTATIN PWDR 100000 UNIT/GM TOP SCH ×2 (10:44→21:17)
--- NOTE | 2021-03-11 10:47 | EKG ---
Test Date: 2021-03-10 Test Time: 16:44:21 Associate Attorney: JUAN MEASUREMENT RESULTS: Intervals: Rate: 148 MN: 96 QRSD: 74 QT: 352 QTc: 552 [place]: P: MN: 96 QRS: 12 T: 71 INTERPRETIVE STATEMENTS: Sinus tachycardia with short MN Possible Anterior infarct, age undetermined Abnormal ECG Compared to ECG 02/26/2021 06:26:38 Short MN interval now present Myocardial infarct finding now present Electronically Signed On 03-11-21 10:46:46 CDT by Ned Allen
[2021-03-11] MEDS ORDERED: VANCOMYCIN 1.25 GM in NA CHLORIDE 0.9% 250 ML IVPB SCH (11:00)
[2021-03-11] MEDS ORDERED: VANCOMYCIN 1.5 GM in NA CHLORIDE 0.9% 500 ML IVPB SCH (11:00)
[2021-03-11] MEDS: ONDANSETRON 4 MG/2 ML VIAL IV PRN (13:15)
[2021-03-11] MEDS: ACETAMINOPHEN 500 MG TAB PO PRN (13:15)
[2021-03-11] MEDS ORDERED: hydrOXYzine HCL 25 MG TAB PO PRN (15:09)
[2021-03-11] MEDS ORDERED: TIZANIDINE HCL 4 MG PO PRN (15:09)
[2021-03-11] MEDS ORDERED: TIZANIDINE 4 MG TABLET PO PRN (15:22)
[2021-03-11] MEDS ORDERED: BISACODYL 10 MG RECTAL SUPP PR ONE (15:30)
[2021-03-11] MEDS: clonazePAM 0.5 MG TAB PO PRN (16:51)
[2021-03-11] MEDS: ENOXAPARIN 40 MG/0.4 ML SQ SCH (16:53)
[2021-03-11] MEDS: METOPROLOL TAR 50 MG TAB PO SCH (21:08)
[2021-03-11] MEDS: ZOLPIDEM TARTRATE 10 MG TABLET PO PRN (21:17)
[2021-03-12 04:30] LABS: Basophils % 0.3 % (0-1.3); Hematocrit 36.7 % (39.6-49.0); Lymphocytes % 9.9 % (15.3-44.8); RBC Red Blood Cell Count 4.76 M/uL (4.33-5.43)
[2021-03-12 04:34] LABS: BUN Blood Urea Nitrogen 12 mg/dL (7-18); Bicarbonate 29 mmol/L (21-32); Glucose Level 272 mg/dL (74-106); Magnesium 2.4 mg/dL (1.8-2.4); Potassium 3.6 mmol/L (3.5-5.1); Sodium Level 138 mmol/L (136-145)
[2021-03-12] MEDS: CEFAZOLIN/SWI 1gm 1 GM/10 ML SYR IVP SCH ×3 (05:31→17:25)
[2021-03-12] MEDS: INSULIN -REGULAR HUMAN 50 UNIT/0.5 ML ML SQ SCH ×4 (09:00→21:00)
[2021-03-12] MEDS: DOCUSATE NA 100 MG CAP PO SCH (09:01)
[2021-03-12] MEDS: clonazePAM 0.5 MG TAB PO PRN (09:01)
[2021-03-12] MEDS: FLUCONAZOLE 100 MG TAB PO SCH (09:01)
[2021-03-12] MEDS: LACTOBACILLUS/ACIDOPHILUS TAB PO SCH ×3 (09:01→21:08)
[2021-03-12] MEDS: METOPROLOL TAR 50 MG TAB PO SCH ×2 (09:01→21:08)
[2021-03-12] MEDS: FAMOTIDINE 20 MG TAB PO SCH ×2 (09:01→21:08)
[2021-03-12] MEDS: NYSTATIN PWDR 100000 UNIT/GM TOP SCH ×2 (09:02→21:10)
[2021-03-12] MEDS: ACETAMINOPHEN 500 MG TAB PO PRN (12:11)
--- NOTE | 2021-03-12 13:09 | CON ---
History Of Present Illness: This is a 70-year-old male coming in with cellulitis of upper back. The patient has significant past medical history of diabetes mellitus, hypertension, atrial fibrillation , cellulitis. He is bed-bound since December. The patient denies any headache, nausea, vomiting, chest pain, abdominal pain, constipation, or diarrhea. Complains of upper back pain. Past Medical History: Diabetes mellitus, anxiety, atrial fibrillation, osteoarthritis, pancreatitis, lymphedema, chronic pain, multiple foot surgeries and back surgeries. Social History: Nonsmoker, nondrinker. Family History: Noncontributory. Medications: The patient is currently on cefazolin and Diflucan. Allergies: CLINDAMYCIN, METFORMIN, AND MEPERIDINE. Review of Systems: A 10-point review was performed. Physical Examination: General: This is a 70-year-old male, lying in bed, not in acute cardiopulmonary distress. Vital Signs: Temperature 98, pulse 67, respirations 16, blood pressure 144/68. HEENT: Unremarkable. Neck: Supple Lungs: Basal crackles. Heart: S1, S2. Regular. Abdomen: Soft, nontender. Bowel sounds present. Extremities: Nonpitting edema. Laboratory Data: Shows WBC 10.10 down from 14.5, hemoglobin 9.9, platelets are 401. Chemistry shows sodium 138, potassium 3.6, chloride 104, bicarb 29, BUN 12, creatinine 0.7, glucose . Raffaele rodata shows blood cultures negative since 03/10. Chest x-ray done yesterday shows no acute cardiopu lmonary process. Assessment And Plan: Cellulitis of upper back. Leukocytosis has improved on cefazolin and the patie nt is also on Diflucan for possible fungal rash. The patient remains in bed for long periods of time . Pending culture results. Continue antibiotic and supportive care. Total course should be 14 days . Can be switched to oral antibiotic on discharge. Continue supportive care of diabetes mellitus, a nemia of chronic disease, elevated procalcitonin. Albumin is 3 with moderate protein-calorie malnour ishment. Continue supportive care and antibiotic and keep the patient offloaded from the back. We w ill follow the patient closely. Thank you for consult. NF/MODL Voice ID: [id number] Report ID: [id number]
[2021-03-12] MEDS: ENOXAPARIN 40 MG/0.4 ML SQ SCH (17:00)
[2021-03-12] MEDS: HYDROMORPHONE ORAL 4 MG TAB PO PRN (19:18)
[2021-03-12] MEDS: ZOLPIDEM TARTRATE 10 MG TABLET PO PRN (21:08)
[2021-03-12] MEDS: JUVEN PACKET PO SCH (21:09)
[2021-03-12] MEDS: GLUCERNA SHAKE 237 ML CAN PO SCH (21:10)
[2021-03-13] MEDS: CEFAZOLIN/SWI 1gm 1 GM/10 ML SYR IVP SCH ×4 (00:33→17:42)
[2021-03-13] MEDS: INSULIN -REGULAR HUMAN 50 UNIT/0.5 ML ML SQ SCH ×3 (07:30→15:34)
[2021-03-13] MEDS: GLUCERNA SHAKE 237 ML CAN PO SCH (09:00)
[2021-03-13] MEDS: JUVEN PACKET PO SCH (09:00)
[2021-03-13] MEDS: HYDROMORPHONE ORAL 4 MG TAB PO PRN (09:15)
[2021-03-13] MEDS: NYSTATIN PWDR 100000 UNIT/GM TOP SCH (09:15)
[2021-03-13] MEDS: DOCUSATE NA 100 MG CAP PO SCH (09:16)
[2021-03-13] MEDS: FLUCONAZOLE 100 MG TAB PO SCH (09:16)
[2021-03-13] MEDS: FAMOTIDINE 20 MG TAB PO SCH (09:16)
[2021-03-13] MEDS: METOPROLOL TAR 50 MG TAB PO SCH (09:16)
[2021-03-13] MEDS: LACTOBACILLUS/ACIDOPHILUS TAB PO SCH ×2 (09:16→13:51)
[2021-03-13 10:29] VITALS: O2SAT 96
[2021-03-13] MEDS: clonazePAM 0.5 MG TAB PO PRN (11:59)
--- NOTE | 2021-03-13 12:01 | P.PN ---
Subjective Date of Service: 03/13/21 Primary Care Provider: Dr. Snow (out of town); Pain management-Dr. Francois Chief Complaint: Cellulitis of the back Patient seen examined at bedside, vitals within normal limits. Review of Systems 10-point ROS is otherwise unremarkable Physical Examination - Vital Signs Temperature: 97.4 F Blood Pressure: 145/79 Pulse: 76 Respirations: 16 Pulse Ox (%): 95 - Physical Exam General: Alert, In no apparent distress HEENT: Atraumatic, Normocephalic Neck: Supple, 2+ carotid pulse no bruit Respiratory: Clear to auscultation bilaterally, Normal air movement Cardiovascular: No edema, Normal pulses Capillary refill: <2 Seconds Gastrointestinal: Normal bowel sounds, Soft and benign Integumentary: Other (Rash throughout the upper mid and lower back. Bilateral erythema noted to anterior aspect of both shins.) - Studies Temp Pulse Resp BP Pulse Ox 97.4 F 76 16 145/79 H 95 03/13/21 08:00 03/13/21 09:16 03/13/21 08:00 03/13/21 09:16 03/13/21 08:00 Laboratory Last Values WBC 14.50 K/uL (4.3-10.9) H 03/10/21 17:05 RBC 5.35 M/uL (4.33-5.43) 03/10/21 17:05 Hgb 13.3 g/dL (13.6-17.9) L 03/10/21 17:05 Hct 41.1 % (39.6-49.0) 03/10/21 17:05 MCV 76.8 fL (80-100) L 03/10/21 17:05 MCH 24.9 pg (27.0-35.0) L 03/10/21 17:05 MCHC 32.4 g/dL (32.0-36.0) 03/10/21 17:05 RDW 15.9 % (12.1-15.2) H 03/10/21 17:05 Plt Count 447 K/uL (152-406) H D 03/10/21 17:05 MPV 6.6 fL (7.6-11.3) L 03/10/21 17:05 Neutrophils % 78.4 % (41.7-73.7) H 03/10/21 17:05 Lymphocytes % 12.7 % (15.3-44.8) L 03/10/21 17:05 Monocytes % 5.1 % (3.3-12.3) 03/10/21 17:05 Eosinophils % 3.1 % (0-4.4) 03/10/21 17:05 Basophils % 0.7 % (0-1.3) 03/10/21 17:05 Absolute Neutrophils 11.3 K/uL (1.8-8.0) H 03/10/21 17:05 Absolute Lymphocytes 1.8 K/uL (0.7-4.9) 03/10/21 17:05 Absolute Monocytes 0.7 K/uL (0.1-1.3) 03/10/21 17:05 Absolute Eosinophils 0.4 K/uL (0-0.5) 03/10/21 17:05 Absolute Basophils 0.1 K/uL (0-0.5) 03/10/21 17:05 PT 12.1 SECONDS (9.5-12.5) 03/10/21 17:05 INR 1.05 03/10/21 17:05 Sodium 138 mmol/L (136-145) 03/10/21 17:05 Potassium 3.8 mmol/L (3.5-5.1) 03/10/21 17:05 Chloride 104 mmol/L (98-107) 03/10/21 17:05 Carbon Dioxide 24 mmol/L (21-32) 03/10/21 17:05 BUN 11 mg/dL (7-18) 03/10/21 17:05 Creatinine 0.72 mg/dL (0.55-1.3) 03/10/21 17:05 Estimated GFR > 90 mL/min (=/>90) 03/10/21 17:05 Glucose 172 mg/dL (74-106) H 03/10/21 17:05 Lactic Acid 1.4 mmol/L (0.4-2.0) 03/10/21 17:05 Calcium 9.0 mg/dL (8.5-10.1) 03/10/21 17:05 Magnesium 2.3 mg/dL (1.8-2.4) 03/10/21 17:05 Total Bilirubin 0.6 mg/dL (0.2-1.0) 03/10/21 17:05 Direct Bilirubin 0.2 mg/dL (0-0.2) 03/10/21 17:05 AST 26 U/L (15-37) 03/10/21 17:05 ALT 31 U/L (12-78) 03/10/21 17:05 Alkaline Phosphatase 338 U/L (45-117) H 03/10/21 17:05 Rapid Troponin I < 0.02 ng/mL (0.0-0.045) 03/10/21 17:05 NT-Pro-B Natriuret Pep 276 pg/mL (<125) H 03/10/21 17:05 Serum Total Protein 7.2 g/dL (6.4-8.2) 03/10/21 17:05 Albumin 3.0 g/dL (3.4-5.0) L 03/10/21 17:05 Globulin 4.2 g/dL (2.3-3.5) H 03/10/21 17:05 Albumin/Globulin Ratio 0.7 (1.1-1.8) L 03/10/21 17:05 SARS-CoV-2 RNA (RT-PCR) Negative (NEGATIVE) 03/10/21 18:25 Assessment And Plan - Plan Antibiotics: cefazolin start: 03/11 stop: 03/25 diflucan start: 03/11 stop: 03/25 Assessment/plan: - Cellulitis of upper back. Leukocytosis has improved on cefazolin and the patient is also on Diflucan for possible fungal rash. The patient remains in bed for long periods of time. blood cultures negative. Continue antibiotic and supportive care. Total course should be 14 days. Can be switched to oral antibiotic on discharge. -DM type 2. Continue supportive care of diabetes mellitus, -anemia.supportive care .-moderate protein-calorie malnourishment-albumin of 3. Continue supportive care and antibiotic and keep the patient offloaded from the back. We will follow the patient closely. Thank you for consult.
--- NOTE | 2021-03-13 15:09 | P.PN ---
Subjective Date of Service: 03/12/21 Subjective: No new changes, No C/O voiced, Improving Review of Systems 10-point ROS is otherwise unremarkable Physical Examination - Vital Signs Temperature: 97.4 F Blood Pressure: 145/79 Pulse: 76 Respirations: 16 Pulse Ox (%): 95 - Physical Exam General: Alert, In no apparent distress, Oriented x3 HEENT: Atraumatic, PERRLA, EOMI Neck: Supple, JVD not distended Respiratory: Clear to auscultation bilaterally, Normal air movement Cardiovascular: Regular rate/rhythm, Normal S1 S2 Gastrointestinal: Normal bowel sounds, No tenderness Musculoskeletal: No tenderness Integumentary: Skin breakdown, Erythema Neurological: Normal speech, Normal tone, Normal affect Lymphatics: No axilla or inguinal lymphadenopathy - Studies Medications List Reviewed: Yes Assessment & Plan - Problems (Diagnosis) (1) Cutaneous candidiasis Current Visit: Yes Status: Acute (2) Psoriasiform dermatitis Current Visit: No Status: Acute (3) Diabetes mellitus Onset Date: 10/31/14 Current Visit: No Status: Chronic Qualifiers: Diabetes mellitus type: type 2 - Plan Plan: 1. Continue with antifungal therapy 2. Continue antibiotic therapy 3. Nystatin powder to the back 4. Supportive care and keep that area dry 5. GI and DVT prophylaxis Discharge Plan: Home Plan to discharge in: Greater than 2 days - Advance Directives Does patient have a Living Will: No Does patient have a Durable POA for Healthcare: No - Code Status/Comfort Care Code Status Assessed: Yes Code Status: Full Code Critical Care: No Time Spent Managing PTS Care (In Minutes): 45
--- NOTE | 2021-03-13 15:10 | P.DS ---
Discharge Date: 03/13/21 Primary Care Provider: Dr. Snow (out of [facility]); Pain management-Dr. Francois Disposition: ROUTINE DISCHARGE Discharge Condition: GOOD Reason for Admission: Cellulitis of the back - Problems (1) Cutaneous candidiasis Current Visit: Yes Status: Acute (2) Psoriasiform dermatitis Current Visit: No Status: Acute (3) Diabetes mellitus Onset Date: 10/31/14 Current Visit: No Status: Chronic Qualifiers: Diabetes mellitus type: type 2 Brief History of Present Illness: 70-year-old male with history of diabetes mellitus type 2, h ypertension, atrial fibrillation, psoriasis, debility presents emergency department for back pain. Patient evaluated in the emergency department, labs significant for white blood cell count 14.5 with left shift glucose 172 alk phos 338 BNP 276 chest x-ray without any acute findings. On exam patient with significant erythema/cellulitis of the back, patient is bed bound and spends most of his time lying on his back, his helps care for him at home. Patient extremely weak, can sometimes get up to wheelchair. ED provider wishes to admit for further evaluation and management. Hospital Course: Patient did well during hospital stay. Erythema has improved. Patient feels better. He is advised to keep that area dry as much as possible. Nystatin powder to the back as well. Keep off of the back so the sweat/moisture does not build up. At this time patient is stable for discharge with outpatient follow- up. Vital Signs/Physical Exam: Temp Pulse Resp BP Pulse Ox 97.4 F 76 16 145/79 H 95 03/13/21 15:09 03/13/21 15:09 03/13/21 15:09 03/13/21 15:09 03/13/21 15:09 General: Alert, In no apparent distress, Oriented x3 Laboratory Data at Discharge: WBC 10.10 K/uL (4.3-10.9) D 03/12/21 03:40 Hgb 11.9 g/dL (13.6-17.9) L 03/12/21 03:40 Hct 36.7 % (39.6-49.0) L 03/12/21 03:40 Plt Count 401 K/uL (152-406) 03/12/21 03:40 PT 12.1 SECONDS (9.5-12.5) 03/10/21 17:05 INR 1.05 03/10/21 17:05 Sodium 138 mmol/L (136-145) 03/12/21 03:40 Potassium 3.6 mmol/L (3.5-5.1) 03/12/21 03:40 BUN 12 mg/dL (7-18) 03/12/21 03:40 Creatinine 0.74 mg/dL (0.55-1.3) 03/12/21 03:40 Glucose 272 mg/dL (74-106) H 03/12/21 03:40 Magnesium Cancelled 03/13/21 05:00 Total Bilirubin 0.6 mg/dL (0.2-1.0) 03/10/21 17:05 AST 26 U/L (15-37) 03/10/21 17:05 ALT 31 U/L (12-78) 03/10/21 17:05 Alkaline Phosphatase 338 U/L (45-117) H 03/10/21 17:05 Home Medications: Hydromorphone [Dilaudid*] 4 mg PO Q6H 03/11/21 Tizanidine HCl [Zanaflex] 4 mg PO DAILY 03/11/21 clonazePAM [Clonazepam] 0.5 mg PO BID 03/11/21 hydrOXYzine HCL [Atarax*] 25 mg PO BID 03/11/21 Docusate [Colace Cap*] 100 mg PO DAILY #20 cap 03/13/21 Fluconazole [Diflucan] 100 mg PO DAILY #10 tablet 03/13/21 Glucerna Shake [Glucerna*] 237 ml PO BID #100 can 03/13/21 Valentín [Valentín*] 1 pkt PO BID #60 powd.pack 03/13/21 Metoprolol Tartrate [Lopressor*] 50 mg PO BID #60 tab 03/13/21 Minocycline HCl 100 mg PO DAILY #10 capsule 03/13/21 Nystatin Powder [Mycostatin (Powder)*] 1 appl TOP BID #1 btl 03/13/21 Sulfamethoxazole/Trimethoprim [Bactrim Ds Tablet] 1 each PO DAILY #7 tablet 03/13/21 New Medications: Sulfamethoxazole/Trimethoprim [Bactrim Ds Tablet] 1 each PO DAILY #7 tablet Docusate [Colace Cap*] 100 mg PO DAILY #20 cap Fluconazole [Diflucan] 100 mg PO DAILY #10 tablet Glucerna Shake [Glucerna*] 237 ml PO BID #100 can Valentín [Valnetín*] 1 pkt PO BID #60 powd.pack Metoprolol Tartrate [Lopressor*] 50 mg PO BID #60 tab Minocycline HCl 100 mg PO DAILY #10 capsule Nystatin Powder [Mycostatin (Powder)*] 1 appl TOP BID #1 btl Physician Discharge Instructions: OK TO DC IV AND DC HOME with home health FOLLOW-UP WITH PRIMARY CARE PROVIDER IN 1-2 WEEKS RETURN TO THE ER IF symptoms worsen CALL or TEXT DR. KANG AT [phone] IF ANY QUESTIONS REGARDING HOSPITAL STAY. PLEASE CALL THE FLOOR AT [phone] IF ANY MEDICATION OR NURSING QUESTIONS. Diet: AHA Activity: Fall precautions Followup: Unknown,U [Primary Care Provider] - Time spent managing pt's care (in minutes): 35
[2021-03-13] MEDS: ENOXAPARIN 40 MG/0.4 ML SQ SCH (16:13)
[2021-03-13 16:20] VITALS: BP 141/79; TEMP 97
== END 2021-03-13 18:34 | disposition home or self-care (01) | DRG 603 ==
LOC: ER 15:57 → ERHOLD 18:52 → 2ND 20:53
PROVIDERS: ADMIT Family Medicine; ATTEND Hospitalist
DX: L03.312 Cellulitis of back [any part except buttock and flank] (principal); I48.20 Chronic atrial fibrillation, unspecified; E44.0 Moderate protein-calorie malnutrition; E11.9 Type 2 diabetes mellitus without complications; G89.29 Other chronic pain; M54.9 Dorsalgia, unspecified; D72.829 Elevated white blood cell count, unspecified; L40.8 Other psoriasis; I10 Essential (primary) hypertension; D63.1 Anemia in chronic kidney disease; B37.2 Candidiasis of skin and nail; R53.81 Other malaise; Z88.5 Allergy status to narcotic agent; Z88.8 Allergy status to other drugs, medicaments and biological substances; Z79.4 Long term (current) use of insulin; Z68.25 Body mass index [BMI] 25.0-25.9, adult; Z79.899 Other long term (current) drug therapy; Z88.1 Allergy status to other antibiotic agents; Z90.49 Acquired absence of other specified parts of digestive tract; Z20.822 Contact with and (suspected) exposure to COVID-19
CPT/HCPCS: 36415; 71045; 80048; 80076; 82947; 83036; 83605; 83735; 83880; 84145; 84484; 85025; 85610; 86140; 87040; 93005; 97161; 97530; 99285; J0690; J1170; J1200; J1650; J2405; J2920; J2930; J3370; J7030; J7040; J7050; U0003

== ENCOUNTER 2021-03-14 10:07 | Emergency (ER) | payer OTHER ==
--- OUTSIDE RECORDS SUMMARY | 2021-03-14 10:10 | XMS REPORT | Continuity of Care Document ---
:1950 Author Organization [facility] t Address [address] [place] [address] Care Team Providers Name Role Phone Hawa [...] 2020-12-28 2020-12-28 Telephone ANNA Lagos 1.2.840.114 [id number] 00:00:00 00:00:00 Calvin Shaikh [facility] [id number] CARE 4.2.7.2.686 [place] [id number] [id number] 2020-12-19 2020-12-19 Transition Tuan Peters 1.2.840.114 [id number] 00:00:00 00:00:00 of Care Ruchi Braswell [id number] [place] [id number] [id number] 2020-12-11 2020-12-17 [facility] Paco Lacey 1.2.840.1 [id number] 05:11:00 16:00:00 Encounter Rene Harrison Natty [id number] [facility] 4.2.7.2.686 [id number] 2020-11-11 2020-11-11 Orders Doctor BASILIA 1.2.840.114 [id number] 00:00:00 00:00:00 Only Unassigned, NATTY [id number] [place] [facility] 4.2.7.2.686 [id number] 2020-11-07 2020-11-07 Telephone Wilder [facility] [id number] 00:00:00 00:00:00 Angi Tobin 350.1.13.10 [place] 4.2.7.2.686 [facility] [phone] [facility] 059 [facility] 2020-10-30 2020-10-30 Orders Doctor CUI 1.2.840.114 [id number] 00:00:00 00:00:00 Only Unassigned, NATTY 350.1.13.10 [place] [facility] 4.2.7.2.686 [id number] 2020-09-26 2020-09-26 Telephone STONE Mccabe 1.2.840.114 [id number] 00:00:00 00:00:00 [facility] [id number] [facility] 4.2.7.2.686 [id number] 2020-09-01 2020-09-01 Orders Doctor CUI 1.2.840.114 [id number] 00:00:00 00:00:00 Only Unassigned, NATTY [id number] [place] [facility] 4.2.7.2.686 [id number] 2020-08-25 2020-08-25 Transition Tuan Peters 1.2.840.114 [id number] 00:00:00 00:00:00 of Care Ruchi Braswell [id number] [place] 4.2.7.2.686 [id number] 2020-08-21 2020-08-23 [facility] Ayleen Washington 1.2.840.114 [id number] 01:07:00 18:35:00 Encounter Kelly Amaya [id number] [facility] [id number] Results This patient has no known results.
[2021-03-14 10:49] LABS: Absolute Lymphocytes (CBC) 2.7 K/uL (0.7-4.9); Basophils % 0.6 % (0-1.3); Hematocrit 42.7 % (39.6-49.0); Lymphocytes % 26.1 % (15.3-44.8); MPV 6.6 fL (7.6-11.3); RBC Red Blood Cell Count 5.57 M/uL (4.33-5.43)
[2021-03-14 11:07] LABS: Albumin 3.2 g/dL (3.4-5.0); Bilirubin Direct 0.2 mg/dL (0-0.2); Bilirubin Total 0.5 mg/dL (0.2-1.0); Potassium 3.1 mmol/L (3.5-5.1); Protein, Total 7.1 g/dL (6.4-8.2)
[2021-03-14 11:18] LABS: Blood Morphology Comment NOT SEEN (NOT SEEN); Platelet Estimate ADEQ
--- NOTE | 2021-03-14 11:18 | RAD REPORT ---
EXAM DESCRIPTION: CTAbdomen Pelvis W Contrast - 03/14/2021 10:50 am CLINICAL HISTORY: Abdominal pain. ABD PAIN COMPARISON: Abdomen Pelvis W Contrast dated 01/30/2021; Abdomen Pelvis W Contrast dated 01/24/2021 ; Abdomen Pelvis W Contrast dated 06/24/2018; CT ABD PELVIS W CONTRAST dated 02/12/2014 TECHNIQUE: Biphasic CT imaging of the abdomen and pelvis was performed with 100 ml non-ionic IV cont rast. All CT scans are performed using dose optimization technique as appropriate and may include automated exposure control or mA/KV adjustment according to patient size. FINDINGS: Mild linear atelectasis is present in both lung bases.Gallbladder appears absent. There is mild intrahepatic common bile duct dilatation. This appears chronic. The spleen, adrenal gla nds and kidneys no acute finding. Bilateral renal cysts. The body and tail of the pancreas appears ab sent. No bowel obstruction, free air, free fluid or abscess. Moderate stool is present in the colon. In pa rticular there is a significant amount of fecal retention in the rectum. No evidence of significant lymphadenopathy. Diffuse osteopenia is seen with multilevel lumbar spine degenerative changes. IMPRESSION: Significant fecal retention in the colon with rectal fecal impaction.
[2021-03-14] MEDS ORDERED: NA CHLORIDE 0.9% 1,000 ML ONE (11:19)
[2021-03-14] MEDS ORDERED: LIDOCAINE VISCOUS 2% SOLN 15 ML UDC ONE (13:20)
--- NOTE | 2021-03-14 13:22 | EDPHYS ---
Physician Documentation [facility] Name: Kiel Ngo Age: 70 yrs Sex: Male : 1950 Arrival Date: 03/14/2021 Time: 10:09 Bed 7 Private MD: ED Physician Kane Lorenzo HPI: 03/14 18:15 This 70 yrs old Male presents to ER via EMS with complaints of Constipation. tw4 18:15 The patient presents to the emergency department with pain in the rectal area, that is tw4 moderate. Onset: The symptoms/episode began/occurred last week. Context: the patient constipated. Modifying factors: The symptoms are alleviated by nothing, The symptoms are aggravated by bowel movement. Associate signs and symptoms: The patient has no apparent associated signs or symptoms. The patient has not experienced similar symptoms in the past. Historical: - Allergies: 10:12 Demerol; em 10:12 metformin; em - PMHx: 10:12 Atrial Fib; Chronic pain; Diabetes - IDDM; Dilaudid pain pump (pt reports last refill em was December 2020); Hypertension; Lymphadema; psoriasis; - Immunization history:: Adult Immunizations up to date. - Social history:: Smoking status: Patient denies any tobacco usage or history of. ROS: 18:15 Constitutional: Negative for fever, chills, and weight loss, Cardiovascular: Negative tw4 for chest pain, palpitations, and edema, Respiratory: Negative for shortness of breath, cough, wheezing, and pleuritic chest pain. 18:15 Back: Negative for injury and pain, MS/Extremity: Negative for injury and deformity, Skin: Negative for injury, rash, and discoloration, Neuro: Negative for headache, weakness, numbness, tingling, and seizure. 18:15 Abdomen/GI: Positive for rectal pain, Negative for abdominal pain, nausea and vomiting, nausea, vomiting, and diarrhea, nausea, vomiting, diarrhea, constipation, abdominal cramps, abdominal distension, anorexia, dysphagia, hematemesis. Exam: 18:15 Constitutional: This is a well developed, well nourished patient who is awake, alert, tw4 and in no acute distress. Head/Face: Normocephalic, atraumatic. Chest/axilla: Normal chest wall appearance and motion. Nontender with no deformity. No lesions are appreciated. Cardiovascular: Regular rate and rhythm with a normal S1 and S2. No gallops, murmurs, or rubs. Normal PMI, no JVD. No pulse deficits. Respiratory: Lungs have equal breath sounds bilaterally, clear to auscultation and percussion. No rales, rhonchi or wheezes noted. No increased work of breathing, no retractions or nasal flaring. 18:15 Back: No spinal tenderness. No costovertebral tenderness. Full range of motion. Skin: Warm, dry with normal turgor. Normal color with no rashes, no lesions, and no evidence of cellulitis. MS/ Extremity: Pulses equal, no cyanosis. Neurovascular intact. Full, normal range of motion. Neuro: Awake and alert, GCS 15, oriented to person, place, time, and situation. Cranial nerves II-XII grossly intact. Motor strength 5/5 in all extremities. Sensory grossly intact. Cerebellar exam normal. Normal gait. 18:15 Abdomen/GI: Inspection: abdomen appears normal, Bowel sounds: diminished, Palpation: nontender, Rectal exam: fecal impaction, that is severe. Vital Signs: 10:09 BP 107 / 81; Pulse 116; Resp 20; Temp 98.0; Pulse Ox 98% on R/A; Weight 136.08 kg; em Height 5 ft. 11 in. (180.34 cm); Pain 10/10; 11:51 BP 117 / 72; Pulse 114; Resp 18; Pulse Ox 99% on R/A; Pain 10/10; em 13:00 BP 109 / 75; Pulse 106; Resp 15; Pulse Ox 98% on R/A; em 10:09 Body Mass Index 41.84 (136.08 kg, 180.34 cm) em Procedures: 18:15 Fecal disimpaction: digital disimpaction was performed, with a moderate amount of stool tw4 expressed. The patient tolerated the intervention well. MDM: 10:15 Patient medically screened. tw4 18:15 Differential diagnosis: hemorrhoids. Data reviewed: vital signs, nurses notes. Data tw4 interpreted: Pulse oximetry: Interpretation: normal. Counseling: I had a detailed discussion with the patient and/or guardian regarding: the historical points, exam findings, and any diagnostic results supporting the discharge/admit diagnosis. 18:15 Data reviewed: lab test result(s), CBC, electrolytes, radiologic studies, CT scan. tw4 Special discussion: Based on the patient's Hx, exam, and Dx evaluation, there is no indication for emergent surgery or inpatient Tx. It is understood by the patient/guardian that if the Sx's persist or worsen they need to return immediately for re-evaluation. I discussed with the patient/guardian in detail that at this point there is no indication for admission to the hospital. It is understood, however, that if the symptoms persist or worsen the patient needs to return immediately for re-evaluation. 03/14 10:25 Order name: Basic Metabolic Panel; Complete Time: 11:30 tw4 03/14 11:30 Interpretation: Normal except: BUN 19; K 3.1; GLUC 228; GFR 66. tw03/14 10:25 Order name: CBC with Diff tw4 03/14 10:25 Order name: Hepatic Function; Complete Time: 11:30 [facility] 03/14 11:31 Interpretation: Normal except: ALK 226; ALB 3.2; GLOB 3.9; A/G 0.8. tw4 03/14 10:25 Order name: Lipase; Complete Time: 11:30 tw4 03/14 11:31 Interpretation: Within normal limits: LIP 36. tw4 03/14 11:18 Order name: Manual Differential EDAR 03/14 11:27 Order name: CREATININE WHOLE BLOOD; Complete Time: 11:30 EDMS 03/14 11:31 Interpretation: Within normal limits: CREATININE WB 1.0. [facility] 03/14 10:25 Order name: IV Saline Lock; Complete Time: 10:43 [facility] 03/14 10:25 Order name: Labs collected and sent; Complete Time: 10:43 tw4 03/14 10:25 Order name: CT Abd/Pelvis - IV Contrast Only; Complete Time: 11:30 tw4 03/14 11:31 Interpretation: Abnormal. tw4 Administered Medications: 11: Drug: NS 0.9% 1000 ml Route: IV; Rate: 1 bolus; Site: right antecubital; em 13:25 Follow up: IV Status: Completed infusion; IV Intake: 1000ml em 13:26 Drug: morphine 4 mg Route: IVP; Site: right antecubital; em 14:24 Follow up: Response: No adverse reaction; Marked relief of symptoms; Pain is decreased; em RASS: Alert and Calm (0) Disposition: 03/14/21 13:21 Discharged to Home. Impression: Fecal impaction. - Condition is Stable. - Discharge Instructions: Fecal Impaction. - Prescriptions for Lactulose 10 gram/15 mL Oral Solution - take 30 milliliter by ORAL route once daily; 300 milliliter. - Medication Reconciliation Form, Thank You Letter, Antibiotic Education, Prescription Opioid Use form. - Follow up: Private Physician; When: Upon discharge from the Emergency Department; Reason: Recheck today's complaints, Continuance of care, Re-evaluation by your physician. - Problem is new. - Symptoms have improved. Signatures: Dispatcher [employer] Chepe Brandt RN RN em Wadley, Terrence, MD MD tw4 Corrections: (The following items were deleted from the chart) 14:43 13:21 03/14/2021 13:21 Discharged to Home. Impression: Fecal impaction. Condition is em Stable. Forms are Medication Reconciliation Form, Thank You Letter, Antibiotic Education, Prescription Opioid Use. Follow up: Private Physician; When: Upon discharge from the Emergency Department; Reason: Recheck today's complaints, Continuance of care, Re-evaluation by your physician. Problem is new. Symptoms have improved. tw4
--- NOTE | 2021-03-14 13:22 | ER ---
Nurse's Notes [facility] Name: Kiel Ngo Age: 70 yrs Sex: Male : 1950 Arrival Date: 03/14/2021 Time: 10:09 Bed 7 Private MD: Diagnosis: Fecal impaction Presentation: 03/14 10:09 Chief complaint: EMS states: called out for constipation, was here yesterday for rash em and also prescribed suppository for constipation but has not filled it yet, last BM unknown. Coronavirus screen: Client denies travel out of the [place] in the last 14 days. Ebola Screen: Patient negative for fever greater than or equal to 101.5 degrees Fahrenheit, and additional compatible Ebola Virus Disease symptoms Patient denies exposure to infectious person. Patient denies travel to an Ebola-affected area in the 21 days before illness onset. No symptoms or risks identified at this time. Initial Sepsis Screen: Does the patient meet any 2 criteria? HR > 90 bpm. No. Patient's initial sepsis screen is negative. Does the patient have a suspected source of infection? No. Patient's initial sepsis screen is negative. Risk Assessment: Do you want to hurt yourself or someone else? Patient reports no desire to harm self or others. Onset of symptoms was March 14, 2021. 10:09 Method Of Arrival: EMS: [facility] em 10:09 Acuity: JOZEF 3 em Historical: - Allergies: 10:12 Demerol; em 10:12 metformin; em - PMHx: 10:12 Atrial Fib; Chronic pain; Diabetes - IDDM; Dilaudid pain pump (pt reports last refill em was December 2020); Hypertension; Lymphadema; psoriasis; - Immunization history:: Adult Immunizations up to date. - Social history:: Smoking status: Patient denies any tobacco usage or history of. Screenin:09 Abuse screen: Denies threats or abuse. Nutritional screening: No deficits noted. em Tuberculosis screening: No symptoms or risk factors identified. Fall Risk Fall in past 12 months (25 points). Secondary diagnosis (15 points) TIA. Assessment: 10:09 General: Appears in no apparent distress. uncomfortable, Behavior is calm, cooperative, em appropriate for age. Pain: Complains of pain in abdomen Pain currently is 10 out of 10 on a pain scale. Neuro: Level of Consciousness is awake, alert, obeys commands, Oriented to person, place, time, Appropriate for age. Cardiovascular: Capillary refill < 3 seconds Patient's skin is warm and dry. Rhythm is sinus tachycardia Chest pain is denied. Respiratory: Airway is patent Respiratory effort is even, unlabored, Respiratory pattern is regular, symmetrical. GI: Abdomen is flat, Bowel sounds present X 4 quads. Abd is soft X 4 quads Abdomen is tender to palpation X 4 quads. Derm: Skin is intact, is thin, Skin is red, redness noted to the back. 11:00 Reassessment: Patient appears in no apparent distress at this time. Patient and/or em family updated on plan of care and expected duration. Pain level reassessed. Patient is alert, oriented x 3, equal unlabored respirations, skin warm/dry/pink. 12:00 Reassessment: Patient and/or family updated on plan of care and expected duration. Pain em level reassessed. Patient is alert, oriented x 3, equal unlabored respirations, skin warm/dry/pink. 13:15 Reassessment: assisted Dr. Lorenzo with fecal disimpaction, moderate amount of stool em removed, pt states he feels slightly better, received VO for morphine 4 mg IVP x 1. 13:51 Reassessment: pending EMS transportation to transport back home. em 14:43 Reassessment: Patient appears in no apparent distress at this time. report given to [facility]. Vital Signs: 10:09 BP 107 / 81; Pulse 116; Resp 20; Temp 98.0; Pulse Ox 98% on R/A; Weight 136.08 kg; em Height 5 ft. 11 in. (180.34 cm); Pain 10/10; 11:51 BP 117 / 72; Pulse 114; Resp 18; Pulse Ox 99% on R/A; Pain 10/10; em 13:00 BP 109 / 75; Pulse 106; Resp 15; Pulse Ox 98% on R/A; em 10:09 Body Mass Index 41.84 (136.08 kg, 180.34 cm) em ED Course: 10:09 Patient arrived in ED. em 10:09 Patient has correct armband on for positive identification. Bed in low position. Call em light in reach. Pulse ox on. NIBP on. 10:12 Triage completed. em 10:12 Arm band placed on. em 10:15 Kane Lorenzo MD is Attending Physician. tw4 10:40 Chepe Tan RN is Primary Nurse. em 10:44 Initial lab(s) drawn, by me, sent to lab. Inserted saline lock: 22 gauge in right em1 antecubital area, using aseptic technique. Blood collected. 10:50 CT Abd/Pelvis - IV Contrast Only In Process Unspecified. EDMS 14:23 No provider procedures requiring assistance completed. IV discontinued, intact, em bleeding controlled, No redness/swelling at site. Pressure dressing applied. Administered Medications: 11:02 Drug: NS 0.9% 1000 ml Route: IV; Rate: 1 bolus; Site: right antecubital; em 13:25 Follow up: IV Status: Completed infusion; IV Intake: 1000ml em 13:26 Drug: morphine 4 mg Route: IVP; Site: right antecubital; em 14:24 Follow up: Response: No adverse reaction; Marked relief of symptoms; Pain is decreased; em RASS: Alert and Calm (0) Intake: 13:25 IV: 1000ml; Total: 1000ml. em Outcome: 13:21 Discharge ordered by . tw4 14:37 Discharged to home via ambulance. em 14:37 Condition: stable 14:37 Discharge instructions given to patient, EMS, Instructed on discharge instructions, follow up and referral plans. medication usage, Demonstrated understanding of instructions, follow-up care, medications, Prescriptions given X 1. 14:43 Patient left the ED. em Signatures: Dispatcher [employer] EDDC Chepe Tan RN RN em Erick, Saman em1 Kane Lorenzo MD MD tw4 Corrections: (The following items were deleted from the chart) 10:13 10:09 Chief complaint: EMS states: called out for constipation, was here yesterday for em rash and also prescribed suppository for constipation but has not filled it yet, last unknown BM em 13: 10:09 Derm: Skin is intact, is thin, Skin is pink, warm \T\ dry. em em 13:52 10:09 Musculoskeletal: Capillary refill < 3 seconds, Range of motion: intact in all em extremities, em
[2021-03-14] MEDS ORDERED: MORPHINE 4 MG/ML SYR ONE (13:42)
[2021-03-14 14:50] VITALS: TEMP 98
[2021-03-14 14:53] VITALS: BP 109/75; O2SAT 98
== END 2021-03-14 14:43 | disposition home or self-care (01) ==
LOC: ER 10:07
DX: K56.41 Fecal impaction (principal); I10 Essential (primary) hypertension; Z88.5 Allergy status to narcotic agent; Z88.8 Allergy status to other drugs, medicaments and biological substances
CPT/HCPCS: 96361; 85025; 80048; 36415; 82565; 80076; 83690; 74177; 96374; 99284; Q9967; J7030

== ENCOUNTER 2021-04-09 20:18 | Emergency (ER) | payer OTHER ==
--- OUTSIDE RECORDS SUMMARY | 2021-04-09 20:21 | XMS REPORT | Continuity of Care Document ---
:1950 Author Organization [facility] t Address [address] [place] [address] Care Team Providers Name Role Phone Hawa [...] 2020-12-28 2020-12-28 Telephone ANNA Lagos 1.2.840.114 [id number] 00:00:00 00:00:00 Calvin Shaikh [facility] [id number] CARE 4.2.7.2.686 [place] [id number] 2020-12-19 2020-12-19 Transition Tuan Peters 1.2.840.114 [id number] 00:00:00 00:00:00 of Care Ruchi Braswell 350.1.13.10 [place] 4.2.7.2.686 [id number] 2020-12-11 2020-12-17 [facility] Paco Lacey 1.2.840.1 [id number] 05:11:00 16:00:00 Encounter Rene Harrison Natty 350.1.13.10 [facility] 4.2.7.2.686 [id number] 2020-11-11 2020-11-11 Orders Doctor BASILIA 1.2.840.114 [id number] 00:00:00 00:00:00 Only Unassigned, NATTY 350.1.13.10 [place] [facility] 4.2.7.2.686 [id number] 2020-11-07 2020-11-07 Telephone Wilder [facility] [id number] 00:00:00 00:00:00 Angi Tobin 350.1.13.10 [place] 4.2.7.2.686 [facility] [id number] [facility] 059 [facility] 2020-10-30 2020-10-30 Orders Doctor CUI 1.2.840.114 [id number] 00:00:00 00:00:00 Only Unassigned, NATTY 350.1.13.10 [place] [facility] 4.2.7.2.686 [id number] 2020-09-26 2020-09-26 Telephone STONE Mccabe 1.2.840.114 [id number] 00:00:00 00:00:[address] [facility] [address] [facility] 4.2.7.2.686 [id number] 2020-09-01 2020-09-01 Orders Doctor CUI 1.2.840.114 [id number] 00:00:00 00:00:00 Only Unassigned, NATTY 350.1.13.10 [place] [facility] 4.2.7.2.686 [id number] 2020-08-25 2020-08-25 Transition Tuan Peters 1.2.840.114 [id number] 00:00:00 00:00:00 of Care Ruchi Braswell 350.1.13.10 [place] 4.2.7.2.686 [id number] 2020-08-21 2020-08-23 [facility] Ayleen Washington 1.2.840.114 [id number] 01:07:00 18:35:00 Encounter Kelly Amaya 350.1.13.10 [facility] 4.2.7.2.686 [id number] [id number] Results This patient has no known results.
[2021-04-09 21:45] LABS: Absolute Lymphocytes (CBC) 1.3 K/uL (0.7-4.9); Basophils % 0.3 % (0-1.3); Hematocrit 40.7 % (39.6-49.0); MPV 6.8 fL (7.6-11.3); RBC Red Blood Cell Count 5.21 M/uL (4.33-5.43)
[2021-04-09] MEDS ORDERED: NA CHLORIDE 0.9% 500 ML ONE (22:01)
[2021-04-09 22:03] LABS: Albumin 3.1 g/dL (3.4-5.0); Bilirubin Direct 0.2 mg/dL (0-0.2); Bilirubin Total 0.5 mg/dL (0.2-1.0); Protein, Total 7.5 g/dL (6.4-8.2)
[2021-04-09 22:13] LABS: Blood Morphology Comment NOT SEEN (NOT SEEN); Platelet Estimate ADEQ
--- NOTE | 2021-04-09 23:40 | EDPHYS ---
Physician Documentation [facility] Name: Kiel Ngo Age: 70 yrs Sex: Male : 1950 Arrival Date: 04/09/2021 Time: 20:56 Bed 14 Private MD: ED Physician Shankar Lange Historical: - Allergies: 04/09 21:00 Demerol; jb4 21:00 metformin; jb4 - Home Meds: 21:00 alprazolam 0.25 mg Oral tab 1 tab PRN for Anxiety [Active]; Ambien 10 mg Oral tab 1 tab jb4 once daily [Active]; Effexor XR 150 mg Oral cp24 [Active]; Benadryl 50mg Oral [Active]; Humulin 70/30 50 units Sub-Q at supper [Active]; hydromorphone 4 mg Oral tab 1 tab every 6 hours for Pain [Active]; Ambien 10 mg Oral tab 1 tab once daily [Active]; Humulin 70/30 55units Sub-Q at breakfast [Active]; Salicylic Acid/ Ceramide Cmb #1 [Active]; venlafaxine 150 mg Oral cp24 1 cap twice a day [Active]; tizanidine 4 mg Oral cap [Active]; - PMHx: 21:00 Atrial Fib; Dilaudid pain pump (pt reports last refill was December 2020); Diabetes - jb4 IDDM; Hypertension; Chronic pain; Lymphadema; psoriasis; - Immunization history:: Adult Immunizations unknown. - Social history:: Smoking status: unknown. Vital Signs: 20:56 BP 147 / 89; Pulse 134; Resp 14; Temp 98.1(O); Pulse Ox 97% on R/A; Weight 68.04 kg; jb4 Height 5 ft. 11 in. (180.34 cm); Pain 10/10; 22:08 BP 152 / 94; Pulse 132; Resp 18 S; Pulse Ox 98% on R/A; bb 23:01 BP 147 / 74; Pulse 129; Resp 14 S; Pulse Ox 98% on R/A; bb 23:59 BP 157 / 91; Pulse 132; Resp 20 S; Pulse Ox 96% on R/A; bb 20:56 Body Mass Index 20.92 (68.04 kg, 180.34 cm) jb4 MDM: 21:32 Patient medically screened. pm1 23:32 Data reviewed: vital signs. Data interpreted: Pulse oximetry: on room air is 98 %. pm1 Interpretation: normal. 23:37 ED course: Patient reports baseline tachycardia 120's when relaxing. EKG shows sinus pm1 tachycardia. Patient reports multiple evaluation by importer or exporter and reports that is his baseline and he is ready to go home. 23:37 Counseling: I had a detailed discussion with the patient and/or guardian regarding: the pm1 historical points, exam findings, and any diagnostic results supporting the discharge/admit diagnosis, lab results, radiology results, the need for outpatient follow up, to return to the emergency department if symptoms worsen or persist or if there are any questions or concerns that arise at home. 04/09 21:33 Order name: Basic Metabolic Panel; Complete Time: 23:00 pm1 04/09 21:33 Order name: CBC with Diff; Complete Time: 23:00 pm1 04/09 21:33 Order name: Hepatic Function; Complete Time: 23:00 pm1 04/09 21:33 Order name: Lipase; Complete Time: 23:00 pm1 04/09 21:33 Order name: CT Abd/Pelvis - IV Contrast Only pm1 04/09 21:51 Order name: Manual Differential; Complete Time: 23:00 EDMS 04/09 21:33 Order name: IV Saline Lock; Complete Time: 21:37 pm1 04/09 21:33 Order name: Labs collected and sent; Complete Time: 21:37 pm1 Administered Medications: 21:48 Drug: NS 0.9% 500 ml Volume: 500 ml; Route: IV; Rate: 1 bolus; Site: left antecubital; bb 22:50 Follow up: IV Status: Completed infusion; IV Intake: 500ml bb Disposition: 04/09/21 23:40 Discharged to Home. Impression: Constipation, unspecified. - Condition is Stable. - Discharge Instructions: Constipation, Adult. - Medication Reconciliation Form, Thank You Letter, Antibiotic Education, SBAR form, Prescription Opioid Use form. - Follow up: Emergency Department; When: As needed; Reason: Worsening of condition. Follow up: Private Physician; When: 2 - 3 days; Reason: Recheck today's complaints, Continuance of care, Re-evaluation by your physician. - Problem is new. - Symptoms have improved. Addendum: 04/10/2021 08:14 Co-signature as Attending Physician, Shankar Lange MD. p kl 13:43 Addendum: HPI: This 70 year old male presents to the ED with complaints of p m1 constipation. Onset: The symptoms started about 1 week ago. Associated signs and symptoms: Pertinet positives: diffuse abdominal pain. Pertinet negatives: n/v/d, fever. The symptoms are described as achy and crampy. Modifying factors: the symptoms are alleviated by nothing. The symptoms are aggravated by nothing. Severity of symptoms are worse. Patient has been having bowel movements throughout the week but they don't feel sufficient. 13:51 Addendum: ROS: Constitutional: negative for fever, chills, and weight loss. p m1 Cardiovascular: negative for chest pain, palpitations, and edema. Respiratory: Negative for shortness of breath, cough. Back: Negative for injury and pain, : Negative for injury and deformity. Skin: negative for injury, rash, and discoloration. Neuro: negative for headache, weakness, numbness, and tingling. Abdomen/GI: positive for abdominal pain and constipation. Negative for nausea, vomiting, and diarrhea. All other systems are negative. 13:54 Addendum: Exam: Constitutional: This is a well developed, well nourished patient who is p m1 awake, alert, and in no acute distress. Head/Face: Normocephalic, atraumatic. Eyes: EOMI. No discharge. ENT: Mouth: Lips, normal, oral mucous: normal, pink and intact, moist. Cardiovascular: tachycardia, Regular rhythm. no pulse deficit. Abdomen/GI: Inspection: obese, palpation: soft in all quadrants. No tenderness. Skin: warm, dry, normal color with no rashes. MS/Extremity: Pulses equal no cyanosis. Neurovascular intact. Neuro: Exam negative for acute changes, Orientation is normal. Mentation is normal. Signatures: Dispatcher [employer] EDMS Shankar Lange MD MD pkl Ballard, Brenda, RN RN Tay Hall, SENIOR SHIPPING CLERK SENIOR SHIPPING CLERK pm1 Ankit Hall, RN RN jb4 Corrections: (The following items were deleted from the chart) 04/09 23:33 23:32 Counseling: I had a detailed discussion with the patient and/or guardian pm1 regarding: the historical points, exam findings, and any diagnostic results supporting the discharge/admit diagnosis, lab results, radiology results, the need for outpatient follow up, to return to the emergency department if symptoms worsen or persist or if there are any questions or concerns that arise at home, pm1 04/10 00:09 04/09 23:40 04/09/2021 23:40 Discharged to Home. Impression: Constipation, unspecified. bb Condition is Stable. Forms are Medication Reconciliation Form, Thank You Letter, Antibiotic Education, Prescription Opioid Use. Follow up: Emergency Department; When: As needed; Reason: Worsening of condition. Follow up: Private Physician; When: 2 - 3 days; Reason: Recheck today's complaints, Continuance of care, Re-evaluation by your physician. Problem is new. Symptoms have improved. pm1
--- NOTE | 2021-04-09 23:40 | ER ---
Nurse's Notes [facility] Name: Kiel Ngo Age: 70 yrs Sex: Male : 1950 Arrival Date: 04/09/2021 Time: 20:56 Bed 14 Private MD: Diagnosis: Constipation, unspecified Presentation: 04/09 20:56 Chief complaint: EMS states: Pt called for EMS due to not being able to have a good jb4 bowel movement in over 1week. Initial HR was in the 140's. We started a 20g IV in the LAC and gave a 250ml bolus. Last set of vitals prior to arrival was 119/81, 132, 95% RA, 14, BGL 280. Pt is A-febrile. Coronavirus screen: Client denies travel out of the [place] in the last 14 days. At this time, the client does not indicate any symptoms associated with coronavirus-19. Ebola Screen: No symptoms or risks identified at this time. Initial Sepsis Screen: Does the patient meet any 2 criteria? HR > 90 bpm. Yes Does the patient have a suspected source of infection? No. Patient's initial sepsis screen is negative. Risk Assessment: Do you want to hurt yourself or someone else? Patient reports no desire to harm self or others. Onset of symptoms was April 02, 2021. Transition of care: patient was not received from another setting of care. 20:56 Method Of Arrival: EMS: [facility] jb4 20:56 Acuity: JOZEF 3 jb4 Historical: - Allergies: 21:00 Demerol; jb4 21:00 metformin; jb4 - Home Meds: 21:00 alprazolam 0.25 mg Oral tab 1 tab PRN for Anxiety [Active]; Ambien 10 mg Oral tab 1 tab jb4 once daily [Active]; Effexor XR 150 mg Oral cp24 [Active]; Benadryl 50mg Oral [Active]; Humulin 70/30 50 units Sub-Q at supper [Active]; hydromorphone 4 mg Oral tab 1 tab every 6 hours for Pain [Active]; Ambien 10 mg Oral tab 1 tab once daily [Active]; Humulin 70/30 55units Sub-Q at breakfast [Active]; Salicylic Acid/ Ceramide Cmb #1 [Active]; venlafaxine 150 mg Oral cp24 1 cap twice a day [Active]; tizanidine 4 mg Oral cap [Active]; - PMHx: 21:00 Atrial Fib; Dilaudid pain pump (pt reports last refill was December 2020); Diabetes - jb4 IDDM; Hypertension; Chronic pain; Lymphadema; psoriasis; - Immunization history:: Adult Immunizations unknown. - Social history:: Smoking status: unknown. Screenin:15 Abuse screen: Denies threats or abuse. Nutritional screening: No deficits noted. bb Tuberculosis screening: No symptoms or risk factors identified. Fall Risk None identified. Assessment: 21:15 General: Appears in no apparent distress. obese, Behavior is calm, cooperative. Pain: bb Complains of pain in rectal area Pain currently is 10 out of 10 on a pain scale. Neuro: Level of Consciousness is awake, alert, obeys commands, Oriented to person, place, time, situation. Cardiovascular: Heart tones S1 S2 present Capillary refill < 3 seconds Patient's skin is warm and dry. Rhythm is sinus tachycardia. Respiratory: Airway is patent Respiratory effort is even, unlabored, Respiratory pattern is regular, Breath sounds are clear bilaterally. GI: Abdomen is obese, Bowel sounds present in right upper quadrant, left upper quadrant and right lower quadrant Abd is soft X 4 quads Abdomen is tender to palpation in left lower quadrant Reports constipation. Derm: Skin is pale. Musculoskeletal: Capillary refill < 3 seconds. 22:08 Reassessment: No changes from previously documented assessment. Patient is alert, bb oriented x 3, equal unlabored respirations, skin warm/dry/pink. 23:01 Reassessment: Patient and/or family updated on plan of care and expected duration. Pain bb level reassessed. Patient is alert, oriented x 3, equal unlabored respirations, skin warm/dry/pink. Patient states feeling better. 23:59 Reassessment: Patient is alert, oriented x 3, equal unlabored respirations, skin bb warm/dry/pink. pt verbalized understanding of and agrees to plan of care discharge instructions given pt awaiting EMS for transportation home Patient states feeling better. 04/10 00:08 Reassessment: [facility] at bedside for transportation home. bb Vital Signs: 04/09 20:56 BP 147 / 89; Pulse 134; Resp 14; Temp 98.1(O); Pulse Ox 97% on R/A; Weight 68.04 kg; jb4 Height 5 ft. 11 in. (180.34 cm); Pain 10/10; 22:08 BP 152 / 94; Pulse 132; Resp 18 S; Pulse Ox 98% on R/A; bb 23:01 BP 147 / 74; Pulse 129; Resp 14 S; Pulse Ox 98% on R/A; bb 23:59 BP 157 / 91; Pulse 132; Resp 20 S; Pulse Ox 96% on R/A; bb 20:56 Body Mass Index 20.92 (68.04 kg, 180.34 cm) jb4 ED Course: 20:56 Patient arrived in ED. bb 20:59 Triage completed. jb4 21:00 Arm band placed on right wrist. jb4 21:15 Patient has correct armband on for positive identification. Bed in low position. Call bb light in reach. Side rails up X2. conventional underwriter on. Pulse ox on. NIBP on. Warm blanket given. 21:15 Maintain EMS IV. Dressing intact. Good blood return noted. Site clean \T\ dry. Gauge \T\ bb site: 20 g L AC. 21:32 Tay Olsen NP is PHCP. pm1 21:32 Shankar Lange MD is Attending Physician. pm1 21:36 Elvia Lugo RN is Primary Nurse. bb 22:25 Cleaned of incontinence. pt cleaned of large bowel movement provider notified. bb 22:43 CT Abd/Pelvis - IV Contrast Only In Process Unspecified. EDMS 04/10 00:00 No provider procedures requiring assistance completed. bb 00:08 IV discontinued, intact, bleeding controlled, No redness/swelling at site. Pressure bb dressing applied. Administered Medications: 04/09 21:48 Drug: NS 0.9% 500 ml Volume: 500 ml; Route: IV; Rate: 1 bolus; Site: left antecubital; bb 22:50 Follow up: IV Status: Completed infusion; IV Intake: 500ml bb Intake: 22:50 IV: 500ml; Total: 500ml. bb Outcome: 23:40 Discharge ordered by . pm1 04/10 00:08 Discharged to home via ambulance. bb Condition: stable Discharge instructions given to patient, Instructed on discharge instructions, follow up and referral plans. Demonstrated understanding of instructions, follow-up care. 00:09 Patient left the ED. bb Signatures: Dispatcher [employer] EDElvia Patel RN RN bb Tay Olsen, TUBULAR RIVETER TUBULAR RIVETER pm1 Ankit Hall, RN RN jb4
[2021-04-10 00:31] VITALS: TEMP 98.1
[2021-04-10 00:36] VITALS: BP 157/91; O2SAT 96
--- NOTE | 2021-04-10 12:56 | EKG ---
Test Date: 2021-04-09 Test Time: 21:02:03 Vacuum Metalizing Supervisor: ZULEIKA MEASUREMENT RESULTS: Intervals: Rate: 136 TX: 146 QRSD: 80 QT: 290 QTc: 436 [place]: P: 51 TX: 146 QRS: -9 T: 37 INTERPRETIVE STATEMENTS: Sinus tachycardia Cannot rule out Inferior infarct, age undetermined Abnormal ECG Compared to ECG 03/10/2021 16:44:21 Short TX interval no longer present Myocardial infarct finding still present Electronically Signed On 04-10-21 12:53:52 CDT by Ned Allen
--- NOTE | 2021-04-10 14:30 | RAD REPORT ---
EXAM DESCRIPTION: CT - Abdomen Pelvis W Contrast - 04/10/2021 6:50 am CLINICAL HISTORY: CONSTIPATION. COMPARISON: CT of the abdomen/pelvis from March 14, 2021. TECHNIQUE: CT of the abdomen and pelvis was performed following intravenous administration of iodina ronan contrast. Arterial phase images through the abdomen, and portal venous phase images through the a bdomen and pelvis were obtained. Oral contrast was not administered. Axial, coronal, and sagittal sof t tissue window reconstructions were created and sent to PACS. This exam was performed according to our departmental dose-optimization program, which includes autom ated exposure control, adjustment of the mA and/or kV according to patient size and/or use of iterati ve reconstruction technique. FINDINGS: Thoracic: No significant abnormality. Hepatobiliary: No concerning hepatic lesion identified. The hepatic and portal veins are patent. The gallbladder is surgically absent. Unchanged mild prominence of the common bile duct and central intra hepatic ducts, likely postsurgical and senescent in etiology. Pancreas: Unremarkable. Spleen: Unremarkable. Gastrointestinal: No evidence of bowel obstruction or perienteric inflammation. The appendix is sunny l. Moderate amount of fecal material in the colon and rectum. Adrenals: No abnormality identified in either adrenal gland. Renal: Few small bilateral renal cysts. No concerning parenchymal abnormality in either kidney. No hy dronephrosis or urolithiasis. Bladder/Reproductive: Unremarkable appearance of the urinary bladder by CT technique. Vascular/Lymphatics: No lymphadenopathy identified by CT size criteria. Abdominal aorta is normal in caliber. Mild mixed atherosclerosis. The major visceral vessels are patent. Musculoskeletal: No concerning osseous lesion identified. Mild bilateral gynecomastia. Thoracic spine stimulator catheter in place. Osteopenia. Spinal degenerative changes. Nonspecific diffuse faint scl erosis in the femoral heads, with degenerative subchondral cystic change bilaterally. Fluid / peritoneum: No significant free fluid. No free intraperitoneal air identified. IMPRESSION: 1. Moderate amount of fecal material in the colon and rectum. 2. Unchanged chronic findings. Electronically signed by: Mary Lou Allen MD 04/09/2021 11:02 PM CDT Due to temporary technical issues with the PACS/Fluency reporting system, reports are being signed by the in house radiologists without review as a courtesy to insure prompt reporting. The interpreting radiologist is fully responsible for the content of the report.
== END 2021-04-10 00:09 | disposition home or self-care (01) ==
LOC: ER 20:18
DX: K59.00 Constipation, unspecified (principal); I10 Essential (primary) hypertension; E11.9 Type 2 diabetes mellitus without complications; I48.91 Unspecified atrial fibrillation; Z79.4 Long term (current) use of insulin
CPT/HCPCS: 93005; 85025; 80048; 36415; 80076; 83690; 74177; 96360; 99284; Q9967; J7040

== ENCOUNTER 2021-06-01 05:52 | Emergency (ER) | payer OTHER ==
--- OUTSIDE RECORDS SUMMARY | 2021-06-01 05:55 | XMS REPORT | Continuity of Care Document ---
:1950 Author Organization [facility] t Address [address] [place] [address] Care Team Providers Name Role Phone Hawa [...] 2020-12-28 2020-12-28 Telephone ANNA Lagos [id number] 00:00:00 00:00:00 Calvin Shaikh [facility] [id number] CARE [id number] [place] [id number] [id number] 2020-12-19 2020-12-19 Transition Tuan Peters [id number] 00:00:00 00:00:00 of Care Ruchi Braswell [id number] [place] [id number] 2020-12-11 2020-12-17 [facility] Paco Lacey [id number] 05:11:00 16:00:00 Encounter Rene Harrison Natty [id number] [facility] [id number] 2020-11-11 2020-11-11 Orders Doctor BASILIA [id number] 00:00:00 00:00:00 Only Unassigned, NATTY [id number] [place] [facility] [id number] 2020-11-07 2020-11-07 Telephone Wilder [facility] [id number] 00:00:00 00:00:00 Angi Tobin [id number] [place] [id number] [facility] [id number] [facility] 059 [facility] 2020-10-30 2020-10-30 Orders Doctor CUI [id number] 00:00:00 00:00:00 Only Unassigned, NATTY [id number] [place] [facility] [id number] 2020-09-26 2020-09-26 Telephone STONE Mccabe 1.2.840.114 [id number] 00:00:00 00:00:00 [facility] [id number] [facility] [id number] 2020-09-01 2020-09-01 Orders Doctor CUI 1.2.840.114 [id number] 00:00:00 00:00:00 Only Unassigned, NATTY [id number] [place] [facility] [id number] 2020-08-25 2020-08-25 Transition Tuan Peters [id number] 00:00:00 00:00:00 of Care Ruchi Braswell [id number] [place] [id number] 2020-08-21 2020-08-23 [facility] Ayleen [place] [id number] 01:07:00 18:35:00 Encounter Kelly Amaya [id number] [facility] [id number] Results This patient has no known results.
--- NOTE | 2021-06-01 05:58 | ER ---
Nurse's Notes [facility] Name: Kiel Ngo Age: 70 yrs Sex: Male : 1950 Arrival Date: 06/01/2021 Time: 05:51 Bed DIS2 Private MD: Diagnosis: Chronic pain syndrome Presentation: 06/01 05:51 Chief complaint: EMS states: called out for chronic pain, marisol. foot pain. Coronavirus em screen: Client denies travel out of the [place] in the last 14 days. Ebola Screen: Patient negative for fever greater than or equal to 101.5 degrees Fahrenheit, and additional compatible Ebola Virus Disease symptoms Patient denies exposure to infectious person. Patient denies travel to an Ebola-affected area in the 21 days before illness onset. No symptoms or risks identified at this time. Initial Sepsis Screen: Does the patient meet any 2 criteria? No. Patient's initial sepsis screen is negative. Does the patient have a suspected source of infection? No. Patient's initial sepsis screen is negative. Risk Assessment: Do you want to hurt yourself or someone else? Patient reports no desire to harm self or others. Onset of symptoms was June 01, 2021. 05:51 Method Of Arrival: EMS: [facility] em 05:51 Acuity: JOZEF 5 em Historical: - Allergies: 05:52 Demerol; em 05:52 metformin; em - PMHx: 05:52 Lymphadema; Dilaudid pain pump (pt reports last refill was December 2020); Diabetes - em IDDM; Atrial Fib; Chronic pain; Hypertension; psoriasis; - Immunization history:: Client reports receiving the 2nd dose of the Covid vaccine. - Social history:: Smoking status: Patient denies any tobacco usage or history of. Screenin:56 Abuse screen: Denies threats or abuse. Nutritional screening: No deficits noted. em Tuberculosis screening: No symptoms or risk factors identified. Fall Risk None identified. Assessment: 05:54 General: Appears in no apparent distress. uncomfortable, Behavior is calm, cooperative. em Pain: Complains of pain in right foot and left foot Pain currently is 10 out of 10 on a pain scale. Neuro: Level of Consciousness is awake, alert, obeys commands, Oriented to person, place, time, situation. Cardiovascular: Capillary refill < 3 seconds Patient's skin is warm and dry. Respiratory: Airway is patent Respiratory effort is even, unlabored, Respiratory pattern is regular, symmetrical. Derm: Skin is intact, is healthy with good turgor, Skin is pink, warm \T\ dry. Musculoskeletal: Capillary refill < 3 seconds. Vital Signs: 05:51 BP 130 / 81; Pulse 92; Resp 16; Pulse Ox 97% on R/A; em 05:56 Temp 97.7; em ED Course: 05:51 Patient arrived in ED. em 05:51 Rosa Harrison is Attending Physician. sp3 05:51 Chepe Tan, RN is Primary Nurse. em 05:52 Triage completed. em 05:52 Arm band placed on. em 05:56 Patient has correct armband on for positive identification. em 05:56 No provider procedures requiring assistance completed. Patient did not have IV access em during this emergency room visit. Administered Medications: 05:56 Drug: Dilaudid (HYDROmorphone) 2 mg Route: IM; Site: left deltoid; em 06:01 Follow up: Response: Medication administered at discharge. em Outcome: 05:57 Discharge ordered by . sp3 06:01 Discharged to home via wheelchair. em 06:01 Condition: stable 06:01 Discharge instructions given to patient, Instructed on discharge instructions, follow up and referral plans. Demonstrated understanding of instructions, follow-up care. 06:02 Patient left the ED. em Signatures: Chepe Tan, RN RN em Rosa Harrison sp3
--- NOTE | 2021-06-01 05:58 | EDPHYS ---
Physician Documentation [facility] Name: Kiel Ngo Age: 70 yrs Sex: Male : 1950 Arrival Date: 06/01/2021 Time: 05:51 Bed DIS2 Private MD: ED Physician Rosa Harrison HPI: 06/01 05:52 This 70 yrs old Male presents to ER via Unassigned with complaints of Chronic sp3 pain. 05:52 70-year-old male with history of paroxysmal A. fib, hypertension, diabetes, chronic sp3 pain who is out of his pain medications secondary to his ambulance company missing their appointment to take him to his pain physician. He presents today with generalized acute pain of his lower extremities secondary to being out of his medications. No additional trauma noted. Patient states that he would not of come to the emergency department had he not been out of his medications. Patient denies on ROS fever, headache, neck pain, chest pain, shortness of breath, abdominal pain, nausea, vomiting, diarrhea, syncope new neuro symptoms or any other symptoms as a part of ROS at this time. Remainder of ROS symptoms are negative.. Historical: - Allergies: 05:52 Demerol; em 05:52 metformin; em - PMHx: 05:52 Lymphadema; Dilaudid pain pump (pt reports last refill was December 2020); Diabetes - em IDDM; Atrial Fib; Chronic pain; Hypertension; psoriasis; - Immunization history:: Client reports receiving the 2nd dose of the Covid vaccine. - Social history:: Smoking status: Patient denies any tobacco usage or history of. ROS: 05:54 Constitutional: Negative for fever, chills, and weight loss, Neck: Negative for injury, sp3 pain, and swelling, Cardiovascular: Negative for chest pain, palpitations, and edema, Respiratory: Negative for shortness of breath, cough, wheezing, and pleuritic chest pain, Abdomen/GI: Negative for abdominal pain, nausea, vomiting, diarrhea, and constipation, MS/Extremity: Negative for injury and deformity. 05:54 MS/extremity: Positive for pain, Negative for injury or acute deformity, contusion, deformity, puncture, rash. Exam: 05:54 Constitutional: This is a well developed, well nourished patient who is awake, alert, sp3 and in no acute distress. Cardiovascular: Regular rate and rhythm with a normal S1 and S2. No gallops, murmurs, or rubs. Normal PMI, no JVD. No pulse deficits. Respiratory: Lungs have equal breath sounds bilaterally, clear to auscultation and percussion. No rales, rhonchi or wheezes noted. No increased work of breathing, no retractions or nasal flaring. Psych: Awake, alert, with orientation to person, place and time. Behavior, mood, and affect are within normal limits. 05:54 Neuro: Orientation: is normal, Mentation: is normal, Memory: is normal, Motor: At baseline, Patient with chronic pain to palpation bilateral lower extremities. Patient states that this is his normal pain and there is nothing new about the type or intensity.. Vital Signs: 05:51 BP 130 / 81; Pulse 92; Resp 16; Pulse Ox 97% on R/A; em 05:56 Temp 97.7; em MDM: 05:51 Patient medically screened. sp3 05:55 Data reviewed: vital signs, nurses notes, EMS record. ED course: Will administer 2 mg sp3 of Dilaudid intramuscularly for patient's pain. He states he has an appointment later today that he will be able to make. At this time I am not suspicious for cellulitis, DVT, sepsis, shock, vascular compromise, or any other critical illness at this time. Will discharge home in the same EMS agency that brought him after [facility] observation.. Administered Medications: 05:56 Drug: Dilaudid (HYDROmorphone) 2 mg Route: IM; Site: left deltoid; em 06:01 Follow up: Response: Medication administered at discharge. em Disposition Summary: 06/01/21 05:57 Discharge Ordered Location: Home sp3 Condition: Stable sp3 Diagnosis - Chronic pain syndrome sp3 Followup: sp3 - With: Private Physician - When: - Reason: Re-evaluation by your physician Discharge Instructions: - Discharge Summary Sheet sp3 - Chronic Pain, Adult sp3 Forms: - Medication Reconciliation Form sp3 - Thank You Letter sp3 - Antibiotic Education sp3 - Prescription Opioid Use sp3 Signatures: Chepe Tan, RN RN em Rosa Harrison sp3
[2021-06-01 06:08] VITALS: TEMP 97.7
[2021-06-01] MEDS ORDERED: HYDROMORPHONE HCL 2 MG/ML inj ONE (06:18)
== END 2021-06-01 06:02 | disposition home or self-care (01) ==
LOC: ER 05:52
DX: G89.4 Chronic pain syndrome (principal); I10 Essential (primary) hypertension; Z88.5 Allergy status to narcotic agent; Z88.8 Allergy status to other drugs, medicaments and biological substances
CPT/HCPCS: 96372; 99283; J1170

== ENCOUNTER 2021-06-08 10:11 | Emergency (ER) | payer OTHER ==
--- OUTSIDE RECORDS SUMMARY | 2021-06-08 10:13 | XMS REPORT | Continuity of Care Document ---
:1950 Author Organization [facility] t Address [address] [place] [address] Care Team Providers Name Role Phone Hawa [...] 2020-12-28 2020-12-28 Telephone ANNA Lagos 1.2.840.114 [id number] 00:00:00 00:00:00 Calvin Shaikh [facility] [id number] CARE [id number] [place] [id number] 220 2020-12-19 2020-12-19 Transition Tuan Peters [id number] 00:00:00 00:00:00 of Care Ruchi Braswell [id number] [place] [id number] 2020-12-11 2020-12-17 [facility] Paco Lacey 1.2.840.1 [id number] 05:11:00 16:00:00 Encounter Rene Harrison Natty [id number] [facility] [id number] 2020-11-11 2020-11-11 Orders Doctor BASILIA 1.2.840.114 [id number] 00:00:00 00:00:00 Only Unassigned, NATTY [id number] [place] [facility] [id number] 2020-11-07 2020-11-07 Telephone Wilder [facility] [id number] 00:00:00 00:00:00 Angi Tobin [id number] [place] [id number] [facility] [id number] [facility] 059 [facility] 2020-10-30 2020-10-30 Orders Doctor CUI [id number] 00:00:00 00:00:00 Only Unassigned, NATTY [id number] [place] [facility] [id number] 2020-09-26 2020-09-26 Telephone STONE Mccabe 1.2.840.114 [id number] 00:00:00 00:00:00 [facility] [id number] [facility] [id number] 2020-09-01 2020-09-01 Orders Doctor CUI 1.2.840.114 [id number] 00:00:00 00:00:00 Only Unassigned, NATTY [id number] [place] [facility] [id number] 2020-08-25 2020-08-25 Transition Tuan Peters 1.2.840.114 [id number] 00:00:00 00:00:00 of Care Ruchi Braswell [id number] [place] [id number] 2020-08-21 2020-08-23 [facility] Ayleen [place] 1.2.840.114 [id number] 01:07:00 18:35:00 Encounter Kelly Amaya [id number] [facility] [id number] Results This patient has no known results.
[2021-06-08] MEDS ORDERED: HYDROMORPHONE HCL 1 MG/ML INJ ONE (11:23)
[2021-06-08] MEDS ORDERED: ONDANSETRON 4 MG (ODT) TAB ONE (11:23)
--- NOTE | 2021-06-08 11:25 | RAD REPORT ---
EXAM DESCRIPTION: CT - Spine Lumbar Wo Con - 06/08/2021 11:09 am CLINICAL HISTORY: Radiculopathy. LOWER BACK PAIN COMPARISON: No comparisons TECHNIQUE: Axial noncontrast CT imaging of the lumbar spine was performed with coronal and sagittal re-formatted images. All CT scans are performed using dose optimization technique as appropriate and may include automated exposure control or mA/KV adjustment according to patient size. FINDINGS: No acute lumbar spine fracture seen. No aggressive marrow pattern or malalignment. Osteope darrell. Epidural pain pump. There is fusion of the posterior elements at L4-5 and L5-S1 which may be rel ated to degenerative changes. Multilevel degenerate disc disease is noted primarily with facet arthro yves. Paraspinal tissues are normal in thickness. No paraspinal abscess or hematoma seen. Renal lesions noted which are not well assessed but statistically benign. Intervertebral disc disease assessment is inherently limited by CT. Within these limitations, no high -grade canal stenosis suspected. IMPRESSION: No lumbar spine fracture is identified. Multilevel degenerative disc disease.
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
--- NOTE | 2021-06-08 12:02 | RAD REPORT ---
EXAM DESCRIPTION: RAD - Knee Right 2 View - 06/08/2021 11:55 am CLINICAL HISTORY: PAIN COMPARISON: Knee Right 3 View dated 11/10/2014; Knee Left 3 View dated 06/08/2021 FINDINGS: No right knee fractures identified. Tricompartmental degenerative changes are noted which are not well evaluated on the frontal view due to positioning. Suspect at least moderate degenerative changes are present. Patellofemoral compartment spurring and joint space narrowing is noted. IMPRESSION: No right knee fractures identified.
--- NOTE | 2021-06-08 12:03 | RAD REPORT ---
EXAM DESCRIPTION: RAD - Knee Left 3 View - 06/08/2021 11:55 am CLINICAL HISTORY: PAIN COMPARISON: No comparisons FINDINGS: No left knee fractures identified. Advanced degenerative changes are noted. Lateral transl ation of the tibia with respect to the distal femur history. There is near [id number]-[id number] contact in th e lateral compartment. Moderate medial compartment narrowing is noted. Patellofemoral compartment spu rring. No knee effusion. IMPRESSION: No acute fracture of the left knee. Degenerative changes.
--- NOTE | 2021-06-08 12:04 | RAD REPORT ---
EXAM DESCRIPTION: RAD - Femur Right - 06/08/2021 11:54 am CLINICAL HISTORY: PAIN COMPARISON: No comparisons FINDINGS: Advanced degenerative changes of the right acetabulum. Tricompartmental knee degenerative changes as noted. No femur fracture is seen. No dislocation. IMPRESSION: No right femur fracture identified.
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
[2021-06-08 13:04] VITALS: BP 132/72; O2SAT 100
== END 2021-06-08 12:58 | disposition home or self-care (01) ==
LOC: ER 10:11
DX: M25.562 Pain in left knee (principal); M25.561 Pain in right knee; I10 Essential (primary) hypertension; G89.29 Other chronic pain; E11.9 Type 2 diabetes mellitus without complications; I48.91 Unspecified atrial fibrillation; Z79.4 Long term (current) use of insulin; Z88.5 Allergy status to narcotic agent; Z88.8 Allergy status to other drugs, medicaments and biological substances
CPT/HCPCS: 72131; 72192; 73562; 73560; 73552; 96372; 99283; J1170

== ENCOUNTER 2021-06-11 07:36 | Emergency (ER) | payer OTHER ==
--- OUTSIDE RECORDS SUMMARY | 2021-06-11 07:40 | XMS REPORT | Continuity of Care Document ---
:1950 Author Organization [facility] t Address [address] [place] [address] Care Team Providers Name Role Phone Hawa [...] 2020-12-28 2020-12-28 Telephone ANNA Lagos 1.2.840.114 [id number] 00:00:00 00:00:00 Calvin Shaikh [facility] [id number] CARE [id number] [place] [id number] 2020-12-19 2020-12-19 Transition Tuan Peters 1.2.840.114 [id number] 00:00:00 00:00:00 of Care Ruchi Braswell [id number] [place] [facility] [id number] 2020-12-11 2020-12-17 [facility] Paco Lacey 1.2.840.1 [id number] 05:11:00 16:00:00 Encounter Rene Harrison Natty [id number] [facility] [id number] 2020-11-11 2020-11-11 Orders Doctor BASILIA 1.2.840.114 [id number] 00:00:00 00:00:00 Only Unassigned, NATTY [id number] [place] [facility] [id number] 2020-11-07 2020-11-[address] [facility] [id number] 00:00:00 00:00:00 Angi Tobin [id number] [place] [id number] [facility] [id number] [facility] 059 [facility] 2020-10-30 2020-10-30 Orders Doctor CUI 1.2.840.114 [id number] 00:00:00 00:00:00 Only Unassigned, NATTY [id number] [place] [facility] [id number] 2020-09-26 2020-09-26 Telephone STONE Mccabe 1.2.840.114 [id number] 00:00:00 00:00:00 [facility] [id number] [facility] [id number] 2020-09-01 2020-09-01 Orders Doctor CUI 1.2.840.114 [id number] 00:00:00 00:00:00 Only Unassigned, NATTY [id number] [place] [facility] [id number] 2020-08-25 2020-08-25 Transition Tuan Peters 1.2.840.114 [id number] 00:00:00 00:00:00 of Care Ruchi Braswell [id number] [facility] [id number] 2020-08-21 2020-08-23 [facility] Ayleen [place] 1.2.840.114 [id number] 01:07:00 18:35:00 Encounter Kelly Amaya [id number] [facility] [id number] [id number] Results This patient has no known results.
[2021-06-11 08:21] LABS: Absolute Lymphocytes (CBC) 1.5 K/uL (0.7-4.9); Basophils % 0.4 % (0-1.3); Hematocrit 40.6 % (39.6-49.0); MPV 6.3 fL (7.6-11.3); RBC Red Blood Cell Count 5.08 M/uL (4.33-5.43)
[2021-06-11 08:40] LABS: ALT/SGPT 35 U/L (12-78); AST/SGOT 21 U/L (15-37); Albumin 3.1 g/dL (3.4-5.0); Alkaline Phosphatase 173 U/L (45-117); BUN Blood Urea Nitrogen 9 mg/dL (7-18); Bicarbonate 29 mmol/L (21-32); Bilirubin Total 0.7 mg/dL (0.2-1.0); Glucose Level 181 mg/dL (74-106); Lipase 18 U/L (73-393); Potassium 3.8 mmol/L (3.5-5.1); Protein, Total 7.3 g/dL (6.4-8.2); Sodium Level 138 mmol/L (136-145)
[2021-06-11] MEDS ORDERED: NA CHLORIDE 0.9% 500 ML ONE (08:58)
[2021-06-11] MEDS ORDERED: ONDANSETRON 4 MG/2 ML VIAL ONE ×2 (08:58→11:19)
--- NOTE | 2021-06-11 09:25 | RAD REPORT ---
EXAM DESCRIPTION: CT - Abdomen Pelvis Wo Contrast - 06/11/2021 9:11 am CLINICAL HISTORY: ABD PAIN , vomiting, history of cellulitis COMPARISON: Abdomen Pelvis W Contrast dated 04/09/2021; Abdomen Pelvis W Contrast dated 01/24/2021 TECHNIQUE: Axial [address] imaging of the abdomen and pelvis was performed without IV contrast. No IV contrast was given because of allergy, abnormal renal function, patient refusal or physician re quest. No oral contrast. All CT scans are performed using dose optimization technique as appropriate and may include automated exposure control or mA/KV adjustment according to patient size. FINDINGS: Patient has mild scarring changes in the lung bases. No acute pleural or parenchymal lung base finding. Patient does have very prominent, symmetric gynecomastia pattern matching prior imaging . No pericardial thickening or effusion. Liver and spleen show no suspicious or new finding on noncontrast imaging. Gallbladder is absent. Pro minent biliary tree again noted not outside of normal range for post cholecystectomy status. Subtle hypodensity of the pancreatic head tissue noted and stable. A true mass is not suspected. No c lear change from prior imaging. Patient has very little pancreatic body and tail tissue. This matches prior imaging. No hydronephrosis or suspicious renal mass. Bilateral renal cysts match comparison. No significant ad renal finding. Isodense renal masses and pyelonephritis cannot be excluded in the absence of IV contr ast. The urinary bladder is without significant finding. No gastric dilatation or wall thickening identifiable. No acute small bowel finding. Moderate stool v olume is seen mildly distending the right-side of the colon. Mobile cecum is seen positioned in the u pper right mid abdomen. No appendicitis findings. Left-side of the colon shows a more mild stool volu me with no acute component. No free air, free fluid or inflammatory stranding. No mass or bulky lymphadenopathy. Fat extends in to the origin of each inguinal canal. Patient has left iliopsoas atrophy. Prominent degenerative hip joint changes are seen left greater than right. No acute or pathologic bon e process identified. IMPRESSION: Noncontrast CT abdomen and pelvis study shows no acute or emergent finding. Full assessment is limited is the absence of IV contrast. Chronic, nonacute findings are detailed in the body of the report.
--- NOTE | 2021-06-11 10:48 | ER ---
Nurse's Notes [facility] Name: Kiel Ngo Age: 70 yrs Sex: Male : 1950 Arrival Date: 06/11/2021 Time: 07:41 Bed 20 Private MD: Diagnosis: Low back pain;Chronic pain, not elsewhere classified;Nausea Presentation: 06/11 07:44 Chief complaint: EMS states: chronic back pain, has chronic cellulitis on back , has iw been here multiple times for pain control , has a Dilaudid pump that doesn't work , sees Dr. Francois. Coronavirus screen: At this time, the client does not indicate any symptoms associated with coronavirus-19. Ebola Screen: Patient negative for fever greater than or equal to 101.5 degrees Fahrenheit, and additional compatible Ebola Virus Disease symptoms Patient denies exposure to infectious person. Patient denies travel to an Ebola-affected area in the 21 days before illness onset. No symptoms or risks identified at this time. Initial Sepsis Screen: Does the patient meet any 2 criteria? No. Patient's initial sepsis screen is negative. Does the patient have a suspected source of infection? No. Patient's initial sepsis screen is negative. Risk Assessment: Do you want to hurt yourself or someone else? Patient reports no desire to harm self or others. Onset of symptoms was June 11, 2021. 07:44 Method Of Arrival: EMS: [facility] iw 07:44 Acuity: JOZEF 3 iw Historical: - Allergies: 08:10 Demerol; iw 08:10 metformin; iw - Home Meds: 08:10 alprazolam 0.25 mg Oral tab 1 tab PRN for Anxiety [Active]; Ambien 10 mg Oral tab 1 tab iw once daily [Active]; Benadryl 50mg Oral [Active]; Effexor XR 150 mg Oral cp24 [Active]; Humulin 70/30 55units Sub-Q at breakfast [Active]; Humulin 70/30 50 units Sub-Q at supper [Active]; hydromorphone 4 mg Oral tab 1 tab every 6 hours for Pain [Active]; Salicylic Acid/ Ceramide Cmb #1 [Active]; tizanidine 4 mg Oral cap [Active]; venlafaxine 150 mg Oral cp24 1 cap twice a day [Active]; - PMHx: 08:10 Atrial Fib; Chronic pain; Diabetes - IDDM; Dilaudid pain pump (pt reports last refill iw was December 2020); Hypertension; Lymphadema; psoriasis; - Immunization history:: Adult Immunizations unknown. - Social history:: Smoking status: unknown. - Family history:: not pertinent. Screenin:02 Abuse screen: Denies threats or abuse. Nutritional screening: No deficits noted. jd3 Tuberculosis screening: No symptoms or risk factors identified. Fall Risk Ambulatory Aid- None/Bed Rest/Nurse Assist (0 pts). Gait- Normal/Bed Rest/Wheelchair (0 pts) Mental Status- Oriented to own ability (0 pts). Total Chow Fall Scale indicates No Risk (0-24 pts). Assessment: 10:01 General: Appears in no apparent distress. comfortable, Behavior is calm, cooperative, jd3 appropriate for age. Pain: Quality of pain is described as sharp. Neuro: Level of Consciousness is awake, alert, obeys commands, Oriented to person, place, time, situation. Cardiovascular: Denies chest pain, Capillary refill < 3 seconds Patient's skin is warm and dry. Respiratory: Airway is patent Respiratory effort is even, unlabored, Respiratory pattern is regular, symmetrical, Denies cough, shortness of breath. GI: No signs and/or symptoms were reported involving the gastrointestinal system. : No signs and/or symptoms were reported regarding the genitourinary system. EENT: No signs and/or symptoms were reported regarding the EENT system. Derm: Skin is intact, Skin is dry, Skin is normal, Skin temperature is warm. Musculoskeletal: pt is bed bound. 11:23 Reassessment: Patient appears in no apparent distress at this time. Patient and/or jd3 family updated on plan of care and expected duration. Pain level reassessed. Patient is alert, oriented x 3, equal unlabored respirations, skin warm/dry/pink. awaiting EMS for ride home. pt is bed bound Patient states feeling better. 12:20 Reassessment: Patient appears in no apparent distress at this time. No changes from jd3 previously documented assessment. Patient and/or family updated on plan of care and expected duration. Pain level reassessed. Patient is alert, oriented x 3, equal unlabored respirations, skin warm/dry/pink. Vital Signs: 08:10 BP 139 / 93; Pulse 138; Resp 20; Temp 98.5; Pulse Ox 98% on R/A; iw 09:50 BP 144 / 75; Pulse 135; Resp 20 S; Pulse Ox 99% on R/A; jd3 11:24 BP 145 / 88; Pulse 128; Resp 20 S; Pulse Ox 99% on R/A; jd3 ED Course: 07:41 Patient arrived in ED. iw 07:47 Triage completed. iw 07:47 Arm band placed on. iw 07:51 Stu Banerjee MD is Attending Physician. chetan 08:15 Initial lab(s) drawn, by me, sent to lab. Inserted saline lock: 22 gauge in left em1 forearm, using aseptic technique. Blood collected. 08:23 Juanita Mcguire RN is Primary Nurse. iw 09:11 Primary Nurse role handed off by Juanita Mcguire, DIEGO jd3 09:11 Robbie Diez RN is Primary Nurse. jd3 09:12 CT Abd/Pelvis - Without Contrast In Process Unspecified. EDMS 10:03 Patient has correct armband on for positive identification. Placed in gown. Bed in low jd3 position. Call light in reach. Side rails up X2. Adult w/ patient. child monitor on. Pulse ox on. NIBP on. 12:20 No provider procedures requiring assistance completed. IV discontinued, intact, jd3 bleeding controlled, No redness/swelling at site. Pressure dressing applied. 12:29 Primary Nurse role handed off by Robbie Diez RN bd 12:31 Madhu Francois DO is Referral Physician. chetan Administered Medications: 08:35 Drug: NS 0.9% 500 ml Route: IV; Rate: bolus; Site: left forearm; tr6 12:20 Follow up: Response: No adverse reaction; IV Status: Completed infusion; IV Intake: jd3 500ml 08:35 Drug: Zofran (Ondansetron) 4 mg Route: IVP; Site: left forearm; tr6 12:21 Follow up: Response: No adverse reaction jd3 11:03 Drug: Dilaudid (HYDROmorphone) 1 mg Route: IVP; Site: left forearm; jd3 12:21 Follow up: Response: No adverse reaction; RASS: Alert and Calm (0) jd3 11:03 Drug: Zofran (Ondansetron) 4 mg Route: IVP; Site: left forearm; jd3 12:22 Follow up: Response: No adverse reaction jd3 12:13 Drug: Dilaudid (HYDROmorphone) 1 mg Route: IVP; Site: left antecubital; jd3 12:22 Follow up: Response: No adverse reaction; RASS: Alert and Calm (0) jd3 12:14 Drug: Phenergan (promethazine) 12.5 mg Route: IVP; Site: left antecubital; jd3 12:22 Follow up: Response: No adverse reaction jd3 12:40 Drug: fentaNYL Patch (50 mcg/hr) 1 patches Route: Transdermal; Site: affected area; tr6 Intake: 12:20 IV: 500ml; Total: 500ml. jd3 Outcome: 10:48 Discharge ordered by MD. benton 12:20 Discharged to home via ambulance. jd3 12:20 Condition: stable 12:20 Discharge instructions given to patient, Instructed on discharge instructions, follow up and referral plans. Demonstrated understanding of instructions, follow-up care. 12:22 Patient left the ED. jd3 12:40 Patient left the ED. tr6 Signatures: Dispatcher [employer] EDMS Karin Solorzano Corey, MD MD cha Williams, Irene, Saman Matamoros RN, Jonathon, RN RN jd3 Ramnanan, Tiffany, RN RN tr6 Corrections: (The following items were deleted from the chart) 12:21 12:00 Response: No adverse reaction jd3 jd3
--- NOTE | 2021-06-11 10:48 | EDPHYS ---
Physician Documentation [facility] Name: Kiel Ngo Age: 70 yrs Sex: Male : 1950 Arrival Date: 06/11/2021 Time: 07:41 Bed 20 Private MD: Stu Walsh HPI: 06/11 10:38 This 70 yrs old Male presents to ER via EMS with complaints of Back Pain. chetan 10:38 The patient presents with pain that is acute, that is chronic, with no known mechanism chetan of injury. The symptoms are located in the low back, lumbar area. Onset: The symptoms/episode began/occurred 2 day(s) ago. The pain does not radiate. Associated signs and symptoms: The patient has no apparent associated signs or symptoms. The problem was sustained from a chronic condition, degenerative joint disease, the patient has known disc disease. Modifying factors: The patient symptoms are alleviated by remaining still, the patient symptoms are aggravated by movement. Severity of symptoms: At their worst the symptoms were mild, moderate, in the emergency department the symptoms are unchanged. The patient has not experienced similar symptoms in the past. Historical: - Allergies: 08:10 Demerol; iw 08:10 metformin; iw - Home Meds: 08:10 alprazolam 0.25 mg Oral tab 1 tab PRN for Anxiety [Active]; Ambien 10 mg Oral tab 1 tab iw once daily [Active]; Benadryl 50mg Oral [Active]; Effexor XR 150 mg Oral cp24 [Active]; Humulin 70/30 55units Sub-Q at breakfast [Active]; Humulin 70/30 50 units Sub-Q at supper [Active]; hydromorphone 4 mg Oral tab 1 tab every 6 hours for Pain [Active]; Salicylic Acid/ Ceramide Cmb #1 [Active]; tizanidine 4 mg Oral cap [Active]; venlafaxine 150 mg Oral cp24 1 cap twice a day [Active]; - PMHx: 08:10 Atrial Fib; Chronic pain; Diabetes - IDDM; Dilaudid pain pump (pt reports last refill iw was December 2020); Hypertension; Lymphadema; psoriasis; - Immunization history:: Adult Immunizations unknown. - Social history:: Smoking status: unknown. - Family history:: not pertinent. ROS: 10:38 Constitutional: Negative for fever, chills, and weight loss, Eyes: Negative for injury, chetan pain, redness, and discharge, ENT: Negative for injury, pain, and discharge, Neck: Negative for injury, pain, and swelling, Respiratory: Negative for shortness of breath, cough, wheezing, and pleuritic chest pain, Abdomen/GI: Negative for abdominal pain, nausea, vomiting, diarrhea, and constipation, : Negative for injury, bleeding, discharge, and swelling, MS/Extremity: Negative for injury and deformity, Skin: Negative for injury, rash, and discoloration, Neuro: Negative for headache, weakness, numbness, tingling, and seizure, Psych: Negative for depression, anxiety, suicide ideation, homicidal ideation, and hallucinations, Allergy/Immunology: Negative for hives, rash, and allergies, Endocrine: Negative for neck swelling, polydipsia, polyuria, polyphagia, and marked weight changes, Hematologic/Lymphatic: Negative for swollen nodes, abnormal bleeding, and unusual bruising. 10:38 Cardiovascular: 10:38 Cardiovascular: Negative for chest pain. 10:38 Back: Positive for decreased range of motion, pain at rest, of the lumbar area. 12:30 Cardiovascular: Negative for edema, orthopnea, palpitations, paroxysmal nocturnal chetan dyspnea, acute changes. 12:30 Respiratory: Negative for cough, dyspnea on exertion, hemoptysis, orthopnea, pleurisy, shortness of breath, sputum production, wheezing. 12:30 MS/extremity: Negative for acute changes. Exam: 10:38 Constitutional: This is a well developed, well nourished patient who is awake, alert, chetan and in no acute distress. Head/Face: Normocephalic, atraumatic. Eyes: Pupils equal round and reactive to light, extra-ocular motions intact. Lids and lashes normal. Conjunctiva and sclera are non-icteric and not injected. Cornea within normal limits. Periorbital areas with no swelling, redness, or edema. ENT: Nares patent. No nasal discharge, no septal abnormalities noted. Tympanic membranes are normal and external auditory canals are clear. Oropharynx with no redness, swelling, or masses, exudates, or evidence of obstruction, uvula midline. Mucous membranes moist. Neck: Trachea midline, no thyromegaly or masses palpated, and no cervical lymphadenopathy. Supple, full range of motion without nuchal rigidity, or vertebral point tenderness. No Meningismus. Chest/axilla: Normal chest wall appearance and motion. Nontender with no deformity. No lesions are appreciated. Respiratory: Lungs have equal breath sounds bilaterally, clear to auscultation and percussion. No rales, rhonchi or wheezes noted. No increased work of breathing, no retractions or nasal flaring. Abdomen/GI: Soft, non-tender, with normal bowel sounds. No distension or tympany. No guarding or rebound. No evidence of tenderness throughout. Male : Normal genitalia with no discharge or lesions. Skin: Warm, dry with normal turgor. Normal color with no rashes, no lesions, and no evidence of cellulitis. MS/ Extremity: Pulses equal, no cyanosis. Neurovascular intact. Full, normal range of motion. Neuro: Awake and alert, GCS 15, oriented to person, place, time, and situation. Cranial nerves II-XII grossly intact. Motor strength 5/5 in all extremities. Sensory grossly intact. Cerebellar exam normal. Normal gait. Psych: Awake, alert, with orientation to person, place and time. Behavior, mood, and affect are within normal limits. 10:38 Cardiovascular: Rate: tachycardic, Rhythm: regular, Pulses: Pulses are 4+ in bilateral radial, brachial, femoral, popliteal, posterior tibial and and dorsalis pedis arteries.. Heart sounds: normal, normal S1and S2, no S3 or S4, no murmur, no rub, no gallop, Edema: is not appreciated, JVD: is not appreciated. 10:38 : Male external genitalia: normal. 12:30 Musculoskeletal/extremity: ROM: limited active range of motion, limited passive range chetan of motion, Circulation is intact in all extremities. Sensation intact. Compartment Syndrome exam of affected extremity: is normal. DVT Exam: No signs of deep vein thrombosis. no pain, no swelling, no tenderness, negative Homans' sign noted on exam, no appreciated bluish discoloration, no erythema, no increased warmth. Vital Signs: 08:10 BP 139 / 93; Pulse 138; Resp 20; Temp 98.5; Pulse Ox 98% on R/A; iw 09:50 BP 144 / 75; Pulse 135; Resp 20 S; Pulse Ox 99% on R/A; jd3 11:24 BP 145 / 88; Pulse 128; Resp 20 S; Pulse Ox 99% on R/A; jd3 MDM: 07:51 Patient medically screened. [facility] 10:45 Data reviewed: vital signs, nurses notes, lab test result(s), radiologic studies, CT chetan scan. Data interpreted: quality assurance monitor: rate is 120 beats/min, rhythm is regular, Pulse oximetry: on room air is 99 %. Test interpretation: by ED physician or midlevel provider:. Counseling: I had a detailed discussion with the patient and/or guardian regarding: the historical points, exam findings, and any diagnostic results supporting the discharge/admit diagnosis, lab results, radiology results, the need for outpatient follow up, for definitive care, a family practitioner, a touch up painter. 06/11 07:54 Order name: CBC with Diff; Complete Time: 10:38 [facility] 06/11 07:54 Order name: Comprehensive Metabolic Panel; Complete Time: 10:38 [facility] 06/11 07:54 Order name: Lipase; Complete Time: 10:38 [facility] 06/11 07:54 Order name: CT Abd/Pelvis - Without Contrast; Complete Time: 10:38 [facility] Administered Medications: 08:35 Drug: NS 0.9% 500 ml Route: IV; Rate: bolus; Site: left forearm; tr6 12:20 Follow up: Response: No adverse reaction; IV Status: Completed infusion; IV Intake: jd3 500ml 08:35 Drug: Zofran (Ondansetron) 4 mg Route: IVP; Site: left forearm; tr6 12:21 Follow up: Response: No adverse reaction jd3 11:03 Drug: Dilaudid (HYDROmorphone) 1 mg Route: IVP; Site: left forearm; jd3 12:21 Follow up: Response: No adverse reaction; RASS: Alert and Calm (0) jd3 11:03 Drug: Zofran (Ondansetron) 4 mg Route: IVP; Site: left forearm; jd3 12:22 Follow up: Response: No adverse reaction jd3 12:13 Drug: Dilaudid (HYDROmorphone) 1 mg Route: IVP; Site: left antecubital; jd3 12:22 Follow up: Response: No adverse reaction; RASS: Alert and Calm (0) jd3 12:14 Drug: Phenergan (promethazine) 12.5 mg Route: IVP; Site: left antecubital; jd3 12:22 Follow up: Response: No adverse reaction jd3 12:40 Drug: fentaNYL Patch (50 mcg/hr) 1 patches Route: Transdermal; Site: affected area; tr6 Disposition Summary: 06/11/21 10:48 Discharge Ordered Location: Home chetan Problem: new chetan Symptoms: have improved chetan Condition: Stable chetan Diagnosis - Low back pain chetan - Chronic pain, not elsewhere classified chetan - Nausea chetan Followup: chetan - With: Private Physician - When: 2 - 3 days - Reason: Recheck today's complaints, Continuance of care, Re-evaluation by your physician Followup: chetan - With: Madhu Francois DO - When: 2 - 3 days - Reason: Recheck today's complaints, Continuance of care, Re-evaluation by your physician Discharge Instructions: - Discharge Summary Sheet chetan - Acute Back Pain, Adult chetan - Chronic Back Pain chetan - Musculoskeletal Pain chetan - Back Injury Prevention, [id number] chetan - Nausea, Adult chetan - Chronic Back Pain, [id number] chetan - Nausea, Adult, [id number] chetan Forms: - Medication Reconciliation Form chetan - Thank You Letter chetan - Antibiotic Education chetan - Prescription Opioid Use chetan - SBAR form jd3 Prescriptions: - Zofran 4 mg Oral Tablet - take 1 tablet by ORAL route every 12 hours As needed; 20 tablet; Refills: 0, chetan Product Selection Permitted Signatures: Dispatcher [employer] Stu Vale MD MD cha Williams, Irene, RN RN iw Davies, Jonathon, RN RN jNiesha Garza RN RN tr6
[2021-06-11] MEDS ORDERED: HYDROMORPHONE HCL 1 MG/ML INJ ONE ×2 (11:19→12:32)
[2021-06-11 12:27] VITALS: TEMP 98.5
[2021-06-11] MEDS ORDERED: PROMETHAZINE INJ 25 MG/ML AMP ONE (12:28)
[2021-06-11 12:29] VITALS: O2SAT 99
[2021-06-11 12:30] VITALS: BP 145/88
[2021-06-11] MEDS ORDERED: FENTANYL 25 MCG/PATCH TD ONE (12:54)
== END 2021-06-11 12:40 | disposition home or self-care (01) ==
LOC: ER 07:36
DX: G89.29 Other chronic pain (principal); R11.0 Nausea; E11.9 Type 2 diabetes mellitus without complications; I10 Essential (primary) hypertension; I48.91 Unspecified atrial fibrillation; Z79.4 Long term (current) use of insulin
CPT/HCPCS: 85025; 36415; 83690; 80053; 74176; 99284; J2550; J1170 ×2; J7040; J2405 ×2

== ENCOUNTER 2021-06-29 09:00 | Emergency (ER) | payer OTHER ==
[2021-06-29] MEDS ORDERED: HYDROMORPHONE HCL 1 MG/ML INJ ONE (09:49)
[2021-06-29] MEDS ORDERED: FENTANYL 50 MCG/PATCH TD ONE (10:00)
--- NOTE | 2021-06-29 10:30 | ER ---
Nurse's Notes [facility] Name: Kiel Ngo Age: 70 yrs Sex: Male : 1950 Arrival Date: 06/29/2021 Time: 09: Bed 6 Private MD: Diagnosis: Chronic pain, not elsewhere classified Presentation: 06/29 09:01 Chief complaint: EMS states: Bilateral lower leg pain 10/10. Coronavirus screen: At hb this time, the client does not indicate any symptoms associated with coronavirus-19. Ebola Screen: No symptoms or risks identified at this time. Initial Sepsis Screen: Does the patient meet any 2 criteria? No. Patient's initial sepsis screen is negative. Does the patient have a suspected source of infection? No. Patient's initial sepsis screen is negative. Risk Assessment: Do you want to hurt yourself or someone else? Patient reports no desire to harm self or others. Onset of symptoms was June 29, 2021. 09: Method Of Arrival: EMS: [facility] 09: Acuity: JOZEF 3 hb Triage Assessment: 09:03 General: Appears in no apparent distress. Behavior is calm, cooperative. Pain: Pain hb currently is 10 out of 10 on a pain scale. EENT: No signs and/or symptoms were reported regarding the EENT system. Neuro: Level of Consciousness is awake, alert, obeys commands, Oriented to person, place, time, situation. Cardiovascular: Patient's skin is warm and dry. Respiratory: Respiratory effort is even, unlabored, Respiratory pattern is regular, symmetrical. GI: No signs and/or symptoms were reported involving the gastrointestinal system. : No signs and/or symptoms were reported regarding the genitourinary system. Derm: Skin is pink, warm \T\ dry. Musculoskeletal: Reports bilateral lower leg pain, chronic. Historical: - Allergies: 09:03 Demerol; hb 09:03 metformin; hb - Home Meds: :03 alprazolam 0.25 mg Oral tab 1 tab PRN for Anxiety [Active]; Ambien 10 mg Oral tab 1 tab hb once daily [Active]; Benadryl 50mg Oral [Active]; Effexor XR 150 mg Oral cp24 [Active]; Humulin 70/30 55units Sub-Q at breakfast [Active]; Humulin 70/30 50 units Sub-Q at supper [Active]; hydromorphone 4 mg Oral tab 1 tab every 6 hours for Pain [Active]; Salicylic Acid/ Ceramide Cmb #1 [Active]; tizanidine 4 mg Oral cap [Active]; venlafaxine 150 mg Oral cp24 1 cap twice a day [Active]; - PMHx: 09:03 Atrial Fib; Chronic pain; Diabetes - IDDM; Dilaudid pain pump (pt reports last refill hb was December 2020); Hypertension; Lymphadema; psoriasis; - Immunization history:: Client reports having NOT received the Covid vaccine. - Social history:: Smoking status: Reported history of juuling and/or vaping. Screenin:45 Abuse screen: Denies threats or abuse. Denies injuries from another. Nutritional hb screening: No deficits noted. Tuberculosis screening: No symptoms or risk factors identified. Fall Risk Total Chow Fall Scale indicates High Risk Score (45 or more points). Fall prevention measures have been instituted. Side Rails Up X 2 Frequent Obs/Assessments Occuring As available patient and family educated on Fall Prevention Program and Strategies. Assessment: 09:30 General: see tirage. hb 10:23 Reassessment: Patient appears in no apparent distress at this time. Patient and/or hb family updated on plan of care and expected duration. Pain level reassessed. Patient is alert, oriented x 3, equal unlabored respirations, skin warm/dry/pink. Vital Signs: 09:01 BP 151 / 94; Pulse 114; Resp 16; Temp 98.4; Pulse Ox 97% on R/A; Weight 72.57 kg; hb Height 5 ft. 11 in. (180.34 cm); Pain 10/10; 10:23 BP 142 / 92; Pulse 117; Resp 15; Pulse Ox 95% ; hb 09:01 Body Mass Index 22.32 (72.57 kg, 180.34 cm) ED Course: 09:01 Patient arrived in ED. 1 09:01 Arm band placed on Patient placed in an exam room, on a stretcher. 1 09:03 Triage completed. 09:05 Kirby Short PA is PHCP. [facility] 09:05 Calvin Wright MD is Attending Physician. [facility] 09:15 Patient has correct armband on for positive identification. Call light in reach. hb 09:54 Charisma George, RN is Primary Nurse. hb 11:04 No provider procedures requiring assistance completed. Patient did not have IV access hb during this emergency room visit. Administered Medications: 09:28 Drug: Dilaudid (HYDROmorphone) 2 mg Route: IM; Site: right deltoid; hb 09:54 Drug: fentaNYL Patch (50 mcg/hr) 1 patches Route: Transdermal; Site: anterior chest hb wall; Outcome: 10:30 Discharge ordered by MD. nye 11:04 Discharged to home via ambulance. hb 11:04 Condition: stable 11:04 Discharge instructions given to patient, Instructed on discharge instructions, follow up and referral plans. medication usage, Demonstrated understanding of instructions, follow-up care, medications. 11:04 Patient left the ED. Signatures: Kirby Short PA PA jmm Baxter, Heather, RN RN Tristian Padilla RN RN ll1
--- NOTE | 2021-06-29 10:31 | EDPHYS ---
Physician Documentation [facility] Name: Kiel Ngo Age: 70 yrs Sex: Male : 1950 Arrival Date: 06/29/2021 Time: 09: Bed 6 Private MD: ED Physician Calvin Wright HPI: 06/29 10:22 This 70 yrs old Male presents to ER via EMS with complaints of Leg Pain. jmm 10:22 The patient presents with a history of running out of pain medications, pain, that is jmm chronic. The complaints affect the. Onset: The symptoms/episode began/occurred gradually. Modifying factors: The symptoms are alleviated by nothing. the symptoms are aggravated by movement. Associated signs and symptoms: Pertinent negatives calf tenderness, fever, rash, swelling, tingling, vomiting, warmth, weakness. The patient has experienced similar episodes in the past, chronically. Historical: - Allergies: 09:03 Demerol; hb 09:03 metformin; hb - Home Meds: 09:03 alprazolam 0.25 mg Oral tab 1 tab PRN for Anxiety [Active]; Ambien 10 mg Oral tab 1 tab hb once daily [Active]; Benadryl 50mg Oral [Active]; Effexor XR 150 mg Oral cp24 [Active]; Humulin 70/30 55units Sub-Q at breakfast [Active]; Humulin 70/30 50 units Sub-Q at supper [Active]; hydromorphone 4 mg Oral tab 1 tab every 6 hours for Pain [Active]; Salicylic Acid/ Ceramide Cmb #1 [Active]; tizanidine 4 mg Oral cap [Active]; venlafaxine 150 mg Oral cp24 1 cap twice a day [Active]; - PMHx: 09:03 Atrial Fib; Chronic pain; Diabetes - IDDM; Dilaudid pain pump (pt reports last refill hb was December 2020); Hypertension; Lymphadema; psoriasis; - Immunization history:: Client reports having NOT received the Covid vaccine. - Social history:: Smoking status: Reported history of juuling and/or vaping. ROS: 10:22 Constitutional: Negative for fever, chills, and weight loss, Cardiovascular: Negative jmm for chest pain, palpitations, and edema, Respiratory: Negative for shortness of breath, cough, wheezing, and pleuritic chest pain. 10:22 MS/extremity: Positive for pain. 10:22 All other systems are negative. Exam: 10:22 Constitutional: This is a well developed, well nourished patient who is awake, alert, jmm and in no acute distress. Head/Face: atraumatic. Eyes: EOMI, no conjunctival erythema appreciated ENT: Moist Mucus Membranes Neck: Trachea midline, Supple Chest/axilla: Normal chest wall appearance and motion. Cardiovascular: Regular rate and rhythm. No edema appreciated Respiratory: Normal respirations, no respiratory distress appreciated Abdomen/GI: Non distended, soft Back: Normal ROM Skin: General appearance color normal 10:22 Musculoskeletal/extremity: ROM: intact in all extremities. 10:22 Skin: Appearance: Color: normal in color. 10:22 Neuro: Orientation: is normal, Mentation: is normal, Memory: is normal. 10:22 Psych: Behavior/mood is pleasant, cooperative. Vital Signs: 09:01 BP 151 / 94; Pulse 114; Resp 16; Temp 98.4; Pulse Ox 97% on R/A; Weight 72.57 kg; hb Height 5 ft. 11 in. (180.34 cm); Pain 10/10; 10:23 BP 142 / 92; Pulse 117; Resp 15; Pulse Ox 95% ; hb 09:01 Body Mass Index 22.32 (72.57 kg, 180.34 cm) hb MDM: 09:14 Patient medically screened. the [facility] 10:29 Data reviewed: vital signs, nurses notes. Counseling: I had a detailed discussion with the [facility] the patient and/or guardian regarding: the historical points, exam findings, and any diagnostic results supporting the discharge/admit diagnosis, the need for outpatient follow up, to return to the emergency department if symptoms worsen or persist or if there are any questions or concerns that arise at home. Administered Medications: 09:28 Drug: Dilaudid (HYDROmorphone) 2 mg Route: IM; Site: right deltoid; hb 09:54 Drug: fentaNYL Patch (50 mcg/hr) 1 patches Route: Transdermal; Site: anterior chest hb wall; Disposition: 16:32 Co-signature as Attending Physician, Calvin Wright MD I agree with the assessment and kdr plan of care. Disposition Summary: 06/29/21 10:30 Discharge Ordered Location: Home jmm Condition: Stable jmm Diagnosis - Chronic pain, not elsewhere classified jmm Followup: jmm - With: Private Physician - When: 2 - 3 days - Reason: Recheck today's complaints, Continuance of care, Re-evaluation by your physician Discharge Instructions: - Discharge Summary Sheet jmm - Chronic Pain, Adult jmm Forms: - Medication Reconciliation Form jmm - Thank You Letter jmm - Antibiotic Education jmm - Prescription Opioid Use jmm Signatures: Calvin Wright MD MD kdr Mickail, Joel, PA PA jmm Charisma George, RN RN hb
[2021-06-29 11:09] VITALS: TEMP 98.4
[2021-06-29 11:10] VITALS: BP 142/92; O2SAT 95
== END 2021-06-29 11:04 | disposition home or self-care (01) ==
LOC: ER 09:00
DX: G89.29 Other chronic pain (principal); M79.604 Pain in right leg; I10 Essential (primary) hypertension; E11.9 Type 2 diabetes mellitus without complications; Z79.4 Long term (current) use of insulin; Z88.5 Allergy status to narcotic agent; Z88.8 Allergy status to other drugs, medicaments and biological substances
CPT/HCPCS: 96372; 99283; J1170

== ENCOUNTER 2021-07-04 01:20 | Emergency (ER) | payer OTHER ==
--- NOTE | 2021-07-04 01:58 | EDPHYS ---
Physician Documentation [facility] Name: Kiel Ngo Age: 70 yrs Sex: Male : 1950 Arrival Date: 07/04/2021 Time: :23 Bed 19 Private MD: LAURIE Physician Stu Banerjee HPI: 07/04 01:54 This 70 yrs old Male presents to ER via EMS with complaints of Constipation. jmm 01:54 The patient presents to the emergency department with pain in the rectal area. Onset: jmm The symptoms/episode began/occurred gradually, 1 week(s) ago. Modifying factors: The symptoms are alleviated by nothing, The symptoms are aggravated by nothing. This is this is a 70-year-old male with a history of chronic pain that presents to the emergency department with complaints of rectal pain which occurred after the patient gave him self a suppository to help with constipation. Patient takes pain medication regularly. Denies abdominal pain or vomiting.. Historical: - Allergies: 01:26 Demerol; ms4 01:26 metformin; ms4 - PMHx: 01:26 Atrial Fib; Diabetes - IDDM; Chronic pain; Dilaudid pain pump (pt reports last refill ms4 was December 2020); Hypertension; Lymphadema; psoriasis; - Immunization history:: Adult Immunizations up to date, Client reports having NOT received the Covid vaccine. - Social history:: Smoking status: unknown. ROS: 01:54 Constitutional: Negative for fever, chills, and weight loss, Cardiovascular: Negative jmm for chest pain, palpitations, and edema, Respiratory: Negative for shortness of breath, cough, wheezing, and pleuritic chest pain. 01:54 Abdomen/GI: Positive for rectal pain. 01:54 All other systems are negative. Exam: 01:54 Constitutional: This is a well developed, well nourished patient who is awake, alert, jmm and in no acute distress. Head/Face: atraumatic. Eyes: EOMI, no conjunctival erythema appreciated ENT: Moist Mucus Membranes Neck: Trachea midline, Supple Chest/axilla: Normal chest wall appearance and motion. Cardiovascular: Regular rate and rhythm. No edema appreciated Respiratory: Normal respirations, no respiratory distress appreciated Abdomen/GI: Non distended, soft Back: Normal ROM Skin: General appearance color normal MS/ Extremity: Moves all extremities, no obvious deformities appreciated, no edema noted to the lower extremities Neuro: Awake and alert, normal gait Psych: Behavior is normal, Mood is normal, Patient is cooperative and pleasant 01:54 Abdomen/GI: Rectal exam: fecal impaction, that is moderate. Vital Signs: 01:24 BP 112 / 70; Pulse 87; Resp 18; Temp 97.5; Pulse Ox 98% on R/A; Weight 74.84 kg; Height ms4 5 ft. 11 in. (180.34 cm); Pain 8/10; 02:30 BP 102 / 68; Pulse 88; Resp 18; Temp 98.0; Pulse Ox 98% on R/A; Pain 0/10; bs2 01:24 Body Mass Index 23.01 (74.84 kg, 180.34 cm) ms4 MDM: 01:29 Patient medically screened. [facility] 01:54 Data reviewed: vital signs, nurses notes. Counseling: I had a detailed discussion with parris the patient and/or guardian regarding: the historical points, exam findings, and any diagnostic results supporting the discharge/admit diagnosis, the need for outpatient follow up, to return to the emergency department if symptoms worsen or persist or if there are any questions or concerns that arise at home. ED course: I was able to was able to manually disimpact a large amount of stool. This gave the patient relief of his symptoms. Patient's abdomen is soft, there is no vomiting, I do not currently suspect a bowel obstruction.. Administered Medications: 01:51 Drug: Dilaudid (HYDROmorphone) 1 mg Route: IM; Site: right deltoid; ms4 01:57 Follow up: Response: No adverse reaction ms4 Disposition: 07:19 Co-signature as Attending Physician, Stu Banerjee MD I agree with the assessment and chetan plan of care. Disposition Summary: 07/04/21 01:57 Discharge Ordered Location: Home andrea Condition: Stable andrea Diagnosis - Fecal impaction andrea Followup: andrea - With: Private Physician - When: 2 - 3 days - Reason: Recheck today's complaints, Continuance of care, Re-evaluation by your physician Discharge Instructions: - Discharge Summary Sheet parris - Fecal Impaction andrea Forms: - Medication Reconciliation Form andrea - Thank You Letter parris - Antibiotic Education parris - Prescription Opioid Use parris Signatures: Dispatcher [employer] EDMS Stu Banerjee MD MD cha Mickail, Joel, PA PA jmm Stroud, Mikaela RN RN ms4 Corrections: (The following items were deleted from the chart) 01:42 01:26 Abdomen 1 View (KUB)+RAD.RAD.BRZ ordered. EDMS EDMS
--- NOTE | 2021-07-04 01:58 | ER ---
Nurse's Notes [facility] Name: Kiel Ngo Age: 70 yrs Sex: Male : 1950 Arrival Date: 07/04/2021 Time: 01:23 Bed 19 Private MD: Diagnosis: Fecal impaction Presentation: 07/04 01:24 Chief complaint: Patient states: patient presents via EMS for constipation x 1 week. ms4 patient reports he has intense pain in his rectum. 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 Coronavirus screen: Vaccine status: Patient reports being unvaccinated. Client denies travel out of the [place] in the last 14 days. Ebola Screen: Patient negative for fever greater than or equal to 101.5 degrees Fahrenheit, and additional compatible Ebola Virus Disease symptoms Patient denies exposure to infectious person. Patient denies travel to an Ebola-affected area in the 21 days before illness onset. No symptoms or risks identified at this time. Initial Sepsis Screen: Does the patient meet any 2 criteria? No. Patient's initial sepsis screen is negative. Does the patient have a suspected source of infection? No. Patient's initial sepsis screen is negative. Risk Assessment: Do you want to hurt yourself or someone else? Patient reports no desire to harm self or others. Onset of symptoms was July 04, 2021. 01:24 Method Of Arrival: EMS: [facility] ms4 01:24 Acuity: JOZEF 3 ms4 Triage Assessment: 01:27 General: Appears in no apparent distress. Behavior is calm, cooperative, appropriate ms4 for age. Pain: Complains of pain in rectum. GI: Reports constipation. Historical: - Allergies: 01:26 Demerol; ms4 01:26 metformin; ms4 - PMHx: 01:26 Atrial Fib; Diabetes - IDDM; Chronic pain; Dilaudid pain pump (pt reports last refill ms4 was December 2020); Hypertension; Lymphadema; psoriasis; - Immunization history:: Adult Immunizations up to date, Client reports having NOT received the Covid vaccine. - Social history:: Smoking status: unknown. Screenin:59 Abuse screen: Denies threats or abuse. Denies injuries from another. Nutritional ms4 screening: No deficits noted. Tuberculosis screening: No symptoms or risk factors identified. Fall Risk None identified. Assessment: 01:57 Reassessment: Patient appears in no apparent distress at this time. No changes from ms4 previously documented assessment. Patient and/or family updated on plan of care and expected duration. Pain level reassessed. General: Appears in no apparent distress. Behavior is calm, cooperative. Pain: Complains of pain in abdomen. Cardiovascular: No deficits noted. Respiratory: No deficits noted. GI: Bowel sounds present X 4 quads. Abd is soft and non tender Reports constipation, cramping. Vital Signs: 01:24 BP 112 / 70; Pulse 87; Resp 18; Temp 97.5; Pulse Ox 98% on R/A; Weight 74.84 kg; Height ms4 5 ft. 11 in. (180.34 cm); Pain 8/10; 02:30 BP 102 / 68; Pulse 88; Resp 18; Temp 98.0; Pulse Ox 98% on R/A; Pain 0/10; bs2 01:24 Body Mass Index 23.01 (74.84 kg, 180.34 cm) ms4 ED Course: 01:23 Patient arrived in ED. ms4 01:26 Kirby Short PA is PHCP. [facility] 01:26 Stu Banerjee MD is Attending Physician. jm 01:26 Triage completed. ms4 01:28 Arm band placed on left wrist. 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 disimpaction. Patient did not have IV access ms4 during this emergency room visit. 01:59 Patient has correct armband on for positive identification. ms4 Administered Medications: 01:51 Drug: Dilaudid (HYDROmorphone) 1 mg Route: IM; Site: right deltoid; ms4 01:57 Follow up: Response: No adverse reaction ms4 Outcome: :57 Discharge ordered by . jmm 02:28 Discharged to home via ambulance. bs2 02:28 Condition: improved 02:28 Discharge instructions given to patient, EMS, Instructed on discharge instructions, follow up and referral plans. Demonstrated understanding of instructions, follow-up care. 02:31 Patient left the ED. bs2 Signatures: Kirby Short PA PA jmm Smith, Bridget RN RN bs2 Britni Bagley RN RN ms4
[2021-07-04] MEDS ORDERED: LIDOCAINE VISCOUS 2% SOLN 15 ML UDC ONE (02:01)
[2021-07-04] MEDS ORDERED: FLEET ENEMA ADULT PR ONE (02:01)
[2021-07-04] MEDS ORDERED: HYDROMORPHONE HCL 1 MG/ML INJ ONE (02:15)
[2021-07-04 04:24] VITALS: O2SAT 98
[2021-07-04 04:26] VITALS: BP 102/68; TEMP 98
== END 2021-07-04 02:31 | disposition home or self-care (01) ==
LOC: ER 01:20
DX: K56.41 Fecal impaction (principal); Z88.6 Allergy status to analgesic agent; E11.9 Type 2 diabetes mellitus without complications; G89.29 Other chronic pain
CPT/HCPCS: 96372; 99283; J1170

== ENCOUNTER 2021-07-23 09:24 | Emergency (ER) | payer OTHER ==
[2021-07-23 10:50] LABS: Absolute Lymphocytes (CBC) 1.3 K/uL (0.7-4.9); Basophils % 0.3 % (0-1.3); Hematocrit 38.6 % (39.6-49.0); MPV 6.3 fL (7.6-11.3); RBC Red Blood Cell Count 4.69 M/uL (4.33-5.43)
[2021-07-23] MEDS ORDERED: NA CHLORIDE 0.9% 500 ML ONE (10:58)
[2021-07-23 11:03] LABS: Potassium 4.1 mmol/L (3.5-5.1)
[2021-07-23] MEDS ORDERED: ONDANSETRON 4 MG/2 ML VIAL ONE (11:18)
[2021-07-23] MEDS ORDERED: MORPHINE 4 MG/ML SYR ONE (11:18)
[2021-07-23] MEDS ORDERED: LORAZEPAM 1 MG TABLET ONE (12:05)
--- NOTE | 2021-07-23 13:24 | ER ---
Nurse's Notes [facility] Name: Kiel Ngo Age: 70 yrs Sex: Male : 1950 Arrival Date: 07/23/2021 Time: 09:25 Bed 14 Private MD: Diagnosis: Cellulitis of back [any part except buttock];Tinea corporis Presentation: 07/23 09:26 Chief complaint: EMS states: He states that fungal infection on his back is getting tw5 worse despite Monistat and Diflucan. Coronavirus screen: Vaccine status: Patient reports being unvaccinated. Ebola Screen: Patient negative for fever greater than or equal to 101.5 degrees Fahrenheit, and additional compatible Ebola Virus Disease symptoms. Initial Sepsis Screen: Does the patient meet any 2 criteria? No. Patient's initial sepsis screen is negative. Does the patient have a suspected source of infection? No. Patient's initial sepsis screen is negative. Risk Assessment: Do you want to hurt yourself or someone else? Patient reports no desire to harm self or others. Onset of symptoms is unknown. 09:26 Method Of Arrival: EMS: [facility] tw5 09:26 Acuity: JOZEF 3 tw5 Triage Assessment: :31 General: Appears obese, unkempt, Behavior is calm, cooperative, anxious. Pain: Pain tw5 currently is 10 out of 10 on a pain scale. Historical: - Allergies: 09: Demerol; tw5 09:31 metformin; tw5 - Home Meds: : alprazolam 0.25 mg Oral tab 1 tab PRN for Anxiety [Active]; Benadryl 50mg Oral tw5 [Active]; Effexor XR 150 mg Oral cp24 [Active]; hydromorphone 4 mg Oral tab 1 tab every 6 hours for Pain [Active]; tizanidine 4 mg Oral cap [Active]; venlafaxine 150 mg Oral cp24 1 cap twice a day [Active]; - PMHx: 09: Atrial Fib; Chronic pain; Diabetes - IDDM; Dilaudid pain pump (pt reports last refill tw5 was December 2020); Hypertension; Lymphadema; psoriasis; - Immunization history:: Client reports having NOT received the Covid vaccine. - Social history:: Smoking status: Patient denies any tobacco usage or history of. Screenin:33 Abuse screen: Denies threats or abuse. Denies injuries from another. Nutritional tw5 screening: No deficits noted. Tuberculosis screening: No symptoms or risk factors identified. Fall Risk None identified. Assessment: 09:33 Derm: Skin is fragile, is thin, has lesions on Lesions on the back and coccyx Skin is tw5 red. 10:40 General: Reports 'I am starting to itch again and it is really hurting'. tw5 10:56 General: Reports feeling ill for. GI: Reports nausea. tw5 11:42 Reassessment: Patient states feeling better. Patient states symptoms have improved. tw5 General: Reports anxiety. 13:16 General: Reports " My back is still itching, and the morphine gave me a headache, I tw5 would like some dilauded.'. Pain: Pain currently is 6 out of 10 on a pain scale. 13:45 Pain: Pain currently is 6 out of 10 on a pain scale. tw5 Vital Signs: 09:26 BP 163 / 91; Pulse 122; Resp 16; Temp 98.1; Pulse Ox 98% on R/A; Weight 81.65 kg; tw5 Height 5 ft. 11 in. (180.34 cm); Pain 10/10; 10:40 BP 172 / 93; Pulse 126; Resp 20; Pulse Ox 99% on R/A; Pain 10/10; tw5 11:42 BP 151 / 92; Pulse 119; Resp 17; Pulse Ox 97% on R/A; Pain 6/10; tw5 13:16 BP 157 / 84; Pulse 123; Resp 18; Pulse Ox 100% on R/A; Pain 6/10; tw5 13:45 BP 154 / 91; Pulse 122; Resp 18; Temp 98.6; Pulse Ox 98% on R/A; Pain 6/10; tw5 09:26 Body Mass Index 25.10 (81.65 kg, 180.34 cm) tw5 ED Course: 09:25 Patient arrived in ED. ds1 09:26 Niesha Hsieh is Primary Nurse. tw5 09:30 Triage completed. tw5 09:31 Arm band placed on left wrist. tw5 09:33 No apparent distress. Awaiting ED provider evaluation. tw5 09:33 Patient has correct armband on for positive identification. Bed in low position. Call tw5 light in reach. Side rails up X 1. property assessment monitor on. Pulse ox on. NIBP on. Door closed. Noise minimized. Moved to private room. Verbal reassurance given. 09:33 Initial lab(s) drawn, by ED staff, sent to lab. Inserted saline lock: 22 gauge in right tw5 forearm, using aseptic technique. 09:37 Inserted. ch5 09:53 Calvin Wright MD is Attending Physician. kdr 10:38 Chem 7 Sent. tw5 10:38 CBC with Diff Sent. tw5 10:57 Chem 7 Sent. tw5 10:57 CBC with Diff Sent. tw5 13:16 No provider procedures requiring assistance completed. tw5 13:46 IV discontinued, intact, bleeding controlled, No redness/swelling at site. Pressure tw5 dressing applied. Administered Medications: 10:38 Drug: NS 0.9% 500 ml Route: IV; Rate: bolus; Site: right forearm; tw5 11:42 Follow up: Response: No adverse reaction; IV Status: Completed infusion tw5 10:55 Drug: Zofran (Ondansetron) 4 mg Route: IVP; Site: right forearm; tw5 11:42 Follow up: Response: No adverse reaction tw5 10:58 Drug: morphine 4 mg Route: IVP; Site: right forearm; tw5 11:43 Follow up: Response: No adverse reaction; Pain is decreased; RASS: Alert and Calm (0) tw5 11:44 Drug: Ativan (LORazepam) 1 mg Route: PO; tw5 13:18 Follow up: Response: No adverse reaction; Anxiety decreased tw5 13:43 Drug: Dilaudid (HYDROmorphone) 1 mg Route: IVP; Site: right forearm; tw5 13:48 Follow up: Response: No adverse reaction; Pain is decreased; RASS: Alert and Calm (0) tw5 Outcome: 13:24 Discharge ordered by . rogerio 13:45 Discharged to home via ambulance. tw5 13:45 Condition: good 13:45 Discharge instructions given to patient, Instructed on discharge instructions, follow up and referral plans. Demonstrated understanding of instructions, follow-up care, medications, wound care, Prescriptions given X 2. 13:57 Patient left the ED. tw5 Signatures: Calvin Wright MD MD kdr Sanford, Demi ds1 Carson Mak RN RN ch5 Niesha Hsieh tw5
--- NOTE | 2021-07-23 13:24 | EDPHYS ---
Physician Documentation [facility] Name: Kiel Ngo Age: 70 yrs Sex: Male : 1950 Arrival Date: 07/23/2021 Time: 09:25 Bed 14 Private MD: ED Physician Calvin Wright Historical: - Allergies: 07/23 09:31 Demerol; tw5 09:31 metformin; tw5 - Home Meds: 09:31 alprazolam 0.25 mg Oral tab 1 tab PRN for Anxiety [Active]; Benadryl 50mg Oral tw5 [Active]; Effexor XR 150 mg Oral cp24 [Active]; hydromorphone 4 mg Oral tab 1 tab every 6 hours for Pain [Active]; tizanidine 4 mg Oral cap [Active]; venlafaxine 150 mg Oral cp24 1 cap twice a day [Active]; - PMHx: 09:31 Atrial Fib; Chronic pain; Diabetes - IDDM; Dilaudid pain pump (pt reports last refill tw5 was December 2020); Hypertension; Lymphadema; psoriasis; - Immunization history:: Client reports having NOT received the Covid vaccine. - Social history:: Smoking status: Patient denies any tobacco usage or history of. Vital Signs: 09:26 BP 163 / 91; Pulse 122; Resp 16; Temp 98.1; Pulse Ox 98% on R/A; Weight 81.65 kg; tw5 Height 5 ft. 11 in. (180.34 cm); Pain 10/10; 10:40 BP 172 / 93; Pulse 126; Resp 20; Pulse Ox 99% on R/A; Pain 10/10; tw5 11:42 BP 151 / 92; Pulse 119; Resp 17; Pulse Ox 97% on R/A; Pain 6/10; tw5 13:16 BP 157 / 84; Pulse 123; Resp 18; Pulse Ox 100% on R/A; Pain 6/10; tw5 13:45 BP 154 / 91; Pulse 122; Resp 18; Temp 98.6; Pulse Ox 98% on R/A; Pain 6/10; tw5 09:26 Body Mass Index 25.10 (81.65 kg, 180.34 cm) tw5 MDM: 13:24 Patient medically screened. kdr 13:38 ED course: Patient was stable in the emergency department. He was noted that he kdr continued to be tachycardic. In review of his prior visits, it was noted that he tends to be tachycardic from time to time during his visits. I suspect that this is the result of his discomfort. He otherwise is asymptomatic and does not complain of general malaise and fatigue. I advised the patient that the prescriptions given should help resolve the matter. Further he needs to stay off of his back is much as possible to prevent further skin breakdown. Patient verbalized understanding of the instructions and was happy with the care provided and the plan for discharge with follow. 07/23 10: Order name: CBC with Diff; Complete Time: kdr 07/23 Order name: Chem 7; Complete Time: kdr Administered Medications: 10:38 Drug: NS 0.9% 500 ml Route: IV; Rate: bolus; Site: right forearm; tw5 11:42 Follow up: Response: No adverse reaction; IV Status: Completed infusion tw5 10:55 Drug: Zofran (Ondansetron) 4 mg Route: IVP; Site: right forearm; tw5 11:42 Follow up: Response: No adverse reaction tw5 10:58 Drug: morphine 4 mg Route: IVP; Site: right forearm; tw5 11:43 Follow up: Response: No adverse reaction; Pain is decreased; RASS: Alert and Calm (0) tw5 11:44 Drug: Ativan (LORazepam) 1 mg Route: PO; tw5 13:18 Follow up: Response: No adverse reaction; Anxiety decreased tw5 13:43 Drug: Dilaudid (HYDROmorphone) 1 mg Route: IVP; Site: right forearm; tw5 13:48 Follow up: Response: No adverse reaction; Pain is decreased; RASS: Alert and Calm (0) tw5 Disposition Summary: 07/23/21 13:24 Discharge Ordered Location: Home kdr Condition: Stable kdr Diagnosis - Cellulitis of back [any part except buttock] kdr - Tinea corporis kdr Followup: kdr - With: Private Physician - When: 2 - 3 days - Reason: If symptoms return, Further diagnostic work-up, Recheck today's complaints, Continuance of care, Re-evaluation by your physician Discharge Instructions: - Discharge Summary Sheet kdr - Cellulitis, Adult kdr - Body Ringworm kdr Forms: - Medication Reconciliation Form kdr - Thank You Letter kdr - Antibiotic Education kdr Prescriptions: - terbinafine HCl 1 % Topical cream - apply 1 application by TOPICAL route 2 times per day for 2 weeks; 2 tube; kdr Refills: 0, Product Selection Permitted - Cephalexin 500 mg Oral Capsule - take 1 capsule by ORAL route every 8 hours for 10 days; 30 capsule; Refills: 0, kdr Product Selection Permitted Signatures: Dispatcher [employer] Calvin Velazco MD MD kdr Niesha Hsieh tw5
[2021-07-23] MEDS ORDERED: HYDROMORPHONE HCL 1 MG/ML INJ ONE (14:05)
[2021-07-23 14:08] VITALS: BP 154/91; TEMP 98.6; O2SAT 98
== END 2021-07-23 13:57 | disposition home or self-care (01) ==
LOC: ER 09:24
DX: L03.312 Cellulitis of back [any part except buttock and flank] (principal); B35.4 Tinea corporis; I10 Essential (primary) hypertension; E11.9 Type 2 diabetes mellitus without complications; F41.9 Anxiety disorder, unspecified; I48.91 Unspecified atrial fibrillation; Z88.5 Allergy status to narcotic agent; Z88.8 Allergy status to other drugs, medicaments and biological substances
CPT/HCPCS: 96361; 85025; 80048; 36415; 96375; 96374; 99284; J1170; J7040; J2405

== ENCOUNTER 2021-07-29 12:19 | Emergency (ER) | payer OTHER ==
[2021-07-29 13:19] LABS: Absolute Lymphocytes (CBC) 1.7 K/uL (0.7-4.9); Basophils % 1.4 % (0-1.3); Hematocrit 38.7 % (39.6-49.0); Lymphocytes % 12.4 % (15.3-44.8); MPV 5.8 fL (7.6-11.3); RBC Red Blood Cell Count 4.77 M/uL (4.33-5.43)
[2021-07-29 13:30] LABS: BUN Blood Urea Nitrogen 13 mg/dL (7-18); Bicarbonate 27 mmol/L (21-32); Glucose Level 208 mg/dL (74-106); Potassium 4.3 mmol/L (3.5-5.1); Sodium Level 136 mmol/L (136-145)
[2021-07-29] MEDS ORDERED: INSULIN -REGULAR HUMAN 50 UNIT/0.5 ML ML ONE (13:37)
--- NOTE | 2021-07-29 14:53 | ER ---
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 Coronavirus screen: At this time, the client does not indicate any symptoms associated with coronavirus-19. Ebola Screen: No symptoms or risks identified at this time. Initial Sepsis Screen: Does the patient meet any 2 criteria? HR > 90 bpm. Does the patient have a suspected source of infection? No. Patient's initial sepsis screen is negative. Risk Assessment: Do you want to hurt yourself or someone else? Patient reports no desire to harm self or others. Onset of symptoms was July 29, 2021. Care prior to arrival: Glucose check: 238. 12:41 Method Of Arrival: EMS: [facility] lp1 12:41 Acuity: JOZEF 3 lp1 Historical: - Allergies: 12:44 Demerol; lp1 12:44 metformin; lp1 12:44 Morphine; lp1 - Home Meds: 12:44 alprazolam 0.25 mg Oral tab 1 tab PRN for Anxiety [Active]; Benadryl 50mg Oral lp1 [Active]; Effexor XR 150 mg Oral cp24 [Active]; hydromorphone 4 mg Oral tab 1 tab every 6 hours for Pain [Active]; tizanidine 4 mg Oral cap [Active]; venlafaxine 150 mg Oral cp24 1 cap twice a day [Active]; Insulin SQ [Active]; - PSHx: 12:44 back sx; lp1 - Immunization history:: Adult Immunizations up to date. - Social history:: Smoking status: Patient denies any tobacco usage or history of. Screenin:45 Abuse screen: Denies threats or abuse. Denies injuries from another. Nutritional lp1 screening: No deficits noted. Tuberculosis screening: No symptoms or risk factors identified. Fall Risk Total Chow Fall Scale indicates High Risk Score (45 or more points). Fall prevention measures have been instituted. Side Rails Up X 2 As available patient and family educated on Fall Prevention Program and Strategies. Assessment: 12:45 General: Appears in no apparent distress. Behavior is calm, appropriate for age. Pain: lp1 Complains of pain in right leg and left leg Pain currently is 10 out of 10 on a pain scale. Neuro: Level of Consciousness is awake, alert, obeys commands, Oriented to person, place, situation, Speech is normal, Intact. Cardiovascular: Patient's skin is warm and dry. Respiratory: Respiratory effort is even, unlabored. GI: Abdomen is obese. : No signs and/or symptoms were reported regarding the genitourinary system. EENT: No signs and/or symptoms were reported regarding the EENT system. Derm: Skin is intact, Skin is dry, Skin is normal, Decubitus located on top of right buttock approximately 1.5 cm to 2.5 cm is stage II bed has granulation present. Musculoskeletal: No deficits noted. 14:00 Reassessment: Patient appears in no apparent distress at this time. Patient and/or lp1 family updated on plan of care and expected duration. Pain level reassessed. Patient is alert, oriented x 3, equal unlabored respirations, skin warm/dry/pink. 14:46 Reassessment: Patient reports pain to bilateral legs; Provider notified, verbal order lp1 for Dilaudid 1mg IM. 15:00 Reassessment: Patient drinking apple juice. lp1 15:05 Reassessment: Verbal order from Provider for NS 1L IV now. lp1 15:42 Reassessment: patient reports pain decreased to bilateral legs; [facility] at bedside for lp1 transfer home for discharge. Vital Signs: 12:41 BP 143 / 96; Pulse 119; Resp 20; Temp 98.1(O); Pulse Ox 97% on R/A; Weight 81.65 kg lp1 (R); Height 5 ft. 11 in. (180.34 cm); Pain 10/10; 14:00 BP 165 / 93; Pulse 126; Resp 15; Pulse Ox 100% on R/A; lp1 15:41 BP 147 / 85; Pulse 117; Resp 17; Pulse Ox 98% on R/A; Pain 3/10; lp1 12:41 Body Mass Index 25.10 (81.65 kg, 180.34 cm) lp1 ED Course: 12:22 Patient arrived in ED. eb 12:23 Calvin Wright MD is Attending Physician. kdr 12:41 Nicole Hammond, RN is Primary Nurse. lp1 12:44 Triage completed. lp1 12:44 Arm band placed on. lp1 12:45 Patient has correct armband on for positive identification. Bed in low position. Call lp1 light in reach. Side rails up X2. groundwater monitoring technician on. Pulse ox on. NIBP on. 12:49 Inserted saline lock: 20 gauge in right antecubital area, using aseptic technique. dh4 Blood collected. 14:28 No provider procedures requiring assistance completed. lp1 15:42 IV discontinued, No redness/swelling at site. Pressure dressing applied. lp1 Administered Medications: 13:16 Drug: Insulin Regular Human 2 units {Co-Signature: maria g (Robbie Diez RN).} Route: lp1 Sub-Q; Site: right upper arm; 13:45 Follow up: Response: Blood sugar is lowered lp1 14:47 Not Given (Duplicate Order): Dilaudid (HYDROmorphone) 1 mg IM once; RASS on ADMIN: lp1 Combtv4, Very Agttd3, Agttd2, Rstlss1, AlertClm0, Drwsy-1, Lt Sdtn-2, Mod Sdtn-3, Dp Sdtn-4, UnArsble-5 14:57 Drug: Dilaudid (HYDROmorphone) 1 mg Route: IM; Site: right deltoid; lp1 15:42 Follow up: Response: Pain is decreased lp1 15:08 Drug: NS 0.9% 1000 ml Route: IV; Rate: 1000 ml; Site: right antecubital; lp1 15:42 Follow up: IV Status: IV converted to saline lock; IV Intake: 600ml lp1 Intake: 15:42 IV: 600ml; Total: 600ml. lp1 Outcome: 14:53 Discharge ordered by . kdr 15:42 Discharged to home via ambulance. lp1 15:42 Condition: good 15:42 Discharge instructions given to patient, Instructed on discharge instructions, follow up and referral plans. Demonstrated understanding of instructions, follow-up care. 15:43 Patient left the ED. lp1 Signatures: Calvin Wright MD MD kdr Nicole Hammond RN RN lp1 Shannan Moraes [facility] Robbie Diez RN jd3 Corrections: (The following items were deleted from the chart) 12:45 12:44 PMHx: Diabetes - IDDM; lp1 lp1 12:45 12:44 PMHx: Lymphadema; lp1 lp1 12:45 12:44 PMHx: Atrial Fib; lp1 lp1 12:45 12:44 PMHx: Hypertension; lp1 lp1 12:45 12:44 PMHx: psoriasis; lp1 lp1 12:45 12:44 PMHx: Chronic pain; lp1 lp1 12:45 12:44 PMHx: Dilaudid pain pump (pt reports last refill was December 2020); lp1 lp1 13:54 12:45 Derm: Skin is intact, Skin is dry, Skin is normal, lp1 lp1
--- NOTE | 2021-07-29 14:53 | EDPHYS ---
Physician Documentation [facility] Name: Kiel Ngo Age: 70 yrs Sex: Male : 1950 Arrival Date: 07/29/2021 Time: 12:22 Bed 24 Private MD: ED Physician Calvin Wright HPI: 07/29 13:06 This 70 yrs old Male presents to ER via EMS with complaints of Elevated kdr glucose. 13:06 Patient states that he has been eating relatively normally today but has noticed that kdr his blood glucose level was elevated at 270. Over the period of an hour or more, he took 9 units of insulin and he does not see a corresponding decrease in his glucose level. EMS achieved a value of 234 prior to arrival. On initial arrival in the ED, his glucose level was 204. He otherwise has no new or focal complaints.. Onset: The symptoms/episode began/occurred just prior to arrival, this morning. Severity of symptoms: At their worst the symptoms were mild in the emergency department the symptoms have resolved. The patient has experienced similar episodes in the past, several times. Routine care. Historical: - Allergies: 12:44 Demerol; lp1 12:44 metformin; lp1 12:44 Morphine; lp1 - Home Meds: 12:44 alprazolam 0.25 mg Oral tab 1 tab PRN for Anxiety [Active]; Benadryl 50mg Oral lp1 [Active]; Effexor XR 150 mg Oral cp24 [Active]; hydromorphone 4 mg Oral tab 1 tab every 6 hours for Pain [Active]; tizanidine 4 mg Oral cap [Active]; venlafaxine 150 mg Oral cp24 1 cap twice a day [Active]; Insulin SQ [Active]; - PSHx: 12:44 back sx; lp1 - Immunization history:: Adult Immunizations up to date. - Social history:: Smoking status: Patient denies any tobacco usage or history of. ROS: 13:06 Constitutional: Negative for fever, chills, and weight loss, Eyes: Negative for injury, kdr pain, redness, and discharge, ENT: Negative for injury, pain, and discharge, Neck: Negative for injury, pain, and swelling, Cardiovascular: Negative for chest pain, palpitations, and edema, Respiratory: Negative for shortness of breath, cough, wheezing, and pleuritic chest pain, Abdomen/GI: Negative for abdominal pain, nausea, vomiting, diarrhea, and constipation, Back: Negative for injury and pain, : Negative for injury, bleeding, discharge, and swelling, MS/Extremity: Negative for injury and deformity, Skin: Negative for injury, rash, and discoloration, Neuro: Negative for headache, weakness, numbness, tingling, and seizure activity. Psych: Negative for depression, anxiety, suicide ideation, homicidal ideation, and hallucinations, Allergy/Immunology: Negative for hives, rash, and allergies, Hematologic/Lymphatic: Negative for swollen nodes, abnormal bleeding, and unusual bruising. 13:06 Endocrine: Positive for Hyperglycemia, Negative for heat intolerance, polydipsia, polyphagia, polyuria, weight gain, weight loss. Exam: 13:06 Constitutional: This is a well developed, well nourished patient who is awake, alert, kdr and in no acute distress. Head/Face: Normocephalic, atraumatic. Eyes: Pupils equal round and reactive to light, extra-ocular motions intact. Lids and lashes normal. Conjunctiva and sclera are non-icteric and not injected. Cornea within normal limits. Periorbital areas with no swelling, redness, or edema. Neck: Trachea midline, no thyromegaly or masses palpated, and no cervical lymphadenopathy. Supple, full range of motion without nuchal rigidity, or vertebral point tenderness. No Meningismus. Chest/axilla: Normal chest wall appearance and motion. Nontender with no deformity. No lesions are appreciated. Cardiovascular: Regular rate and rhythm with a normal S1 and S2. No gallops, murmurs, or rubs. Normal PMI, no JVD. No pulse deficits. Respiratory: Lungs have equal breath sounds bilaterally, clear to auscultation and percussion. No rales, rhonchi or wheezes noted. No increased work of breathing, no retractions or nasal flaring. Abdomen/GI: Soft, non-tender, with normal bowel sounds. No distension or tympany. No guarding or rebound. No evidence of tenderness throughout. Back: No spinal tenderness. No costovertebral tenderness. Full range of motion. MS/ Extremity: Pulses equal, no cyanosis. Neurovascular intact. Full, normal range of motion. Neuro: Awake and alert, GCS 15, oriented to person, place, time, and situation. Cranial nerves II-XII grossly intact. Motor strength 5/5 in all extremities. Sensory grossly intact. Cerebellar exam normal. Normal gait. Psych: Awake, alert, with orientation to person, place and time. Behavior, mood, and affect are within normal limits. 13:06 Skin: Patient has a stable deep stage ulcer on his sacrum. This has been noted on prior exams and visits. He does not indicate that he any related complications relative to the decubitus. Vital Signs: 12:41 BP 143 / 96; Pulse 119; Resp 20; Temp 98.1(O); Pulse Ox 97% on R/A; Weight 81.65 kg lp1 (R); Height 5 ft. 11 in. (180.34 cm); Pain 10/10; 14:00 BP 165 / 93; Pulse 126; Resp 15; Pulse Ox 100% on R/A; lp1 15:41 BP 147 / 85; Pulse 117; Resp 17; Pulse Ox 98% on R/A; Pain 3/10; lp1 12:41 Body Mass Index 25.10 (81.65 kg, 180.34 cm) lp1 MDM: 14:53 Patient medically screened. kdr 16:38 Data reviewed: vital signs, nurses notes, lab test result(s), radiologic studies. kdr Counseling: I had a detailed discussion with the patient and/or guardian regarding: the historical points, exam findings, and any diagnostic results supporting the discharge/admit diagnosis, lab results, radiology results, the need for outpatient follow up. 07/29 13:02 Order name: CBC with Diff; Complete Time: 14:03 kdr 07/29 13:02 Order name: Chem 7; Complete Time: 14:03 kdr 07/29 13:05 Order name: Glucose, Ancillary Testing; Complete Time: 14:03 EDMS 07/29 13:52 Order name: Glucose, Ancillary Testing EDMS 07/29 14:46 Order name: Glucose, Ancillary Testing EDMS Administered Medications: 13:16 Drug: Insulin Regular Human 2 units {Co-Signature: [email or web address] (Robbie Diez RN).} Route: lp1 Sub-Q; Site: right upper arm; 13:45 Follow up: Response: Blood sugar is lowered lp1 14:47 Not Given (Duplicate Order): Dilaudid (HYDROmorphone) 1 mg IM once; RASS on ADMIN: lp1 Combtv4, Very Agttd3, Agttd2, Rstlss1, AlertClm0, Drwsy-1, Lt Sdtn-2, Mod Sdtn-3, Dp Sdtn-4, UnArsble-5 14:57 Drug: Dilaudid (HYDROmorphone) 1 mg Route: IM; Site: right deltoid; lp1 15:42 Follow up: Response: Pain is decreased lp1 15:08 Drug: NS 0.9% 1000 ml Route: IV; Rate: 1000 ml; Site: right antecubital; lp1 15:42 Follow up: IV Status: IV converted to saline lock; IV Intake: 600ml lp1 Disposition Summary: 07/29/21 14:53 Discharge Ordered Location: Home kdr Problem: new kdr Symptoms: have improved kdr Condition: Stable kdr Diagnosis - Hyperglycemia, unspecified kdr - Tachycardia, unspecified kdr Followup: kdr - With: Private Physician - When: 2 - 3 days - Reason: If symptoms return, Further diagnostic work-up, Recheck today's complaints, Continuance of care, Re-evaluation by your physician Discharge Instructions: - Discharge Summary Sheet kdr - Hyperglycemia, [id number] kdr - Sinus Tachycardia kdr Forms: - Medication Reconciliation Form kdr - Thank You Letter kdr Signatures: Dispatcher [employer] Calvin Velazco MD MD kdr Nicole Hammond RN RN lp1 Robbie Diez RN jd3 Corrections: (The following items were deleted from the chart) 12:45 12:44 PMHx: Diabetes - IDDM; lp1 lp1 12:45 12:44 PMHx: Lymphadema; lp1 lp1 12:45 12:44 PMHx: Atrial Fib; lp1 lp1 12:45 12:44 PMHx: Hypertension; lp1 lp1 12:45 12:44 PMHx: psoriasis; lp1 lp1 12:45 12:44 PMHx: Chronic pain; lp1 lp1 12:45 12:44 PMHx: Dilaudid pain pump (pt reports last refill was December 2020); lp1 lp1
[2021-07-29] MEDS ORDERED: HYDROMORPHONE HCL 1 MG/ML INJ ONE (15:17)
[2021-07-29] MEDS ORDERED: NA CHLORIDE 0.9% 1,000 ML ONE (15:29)
[2021-07-29 16:01] VITALS: TEMP 98.1
[2021-07-29 16:04] VITALS: BP 147/85; O2SAT 98
== END 2021-07-29 15:43 | disposition home or self-care (01) ==
LOC: ER 12:19
DX: R73.9 Hyperglycemia, unspecified (principal); R00.0 Tachycardia, unspecified; Z88.5 Allergy status to narcotic agent; Z88.8 Allergy status to other drugs, medicaments and biological substances
CPT/HCPCS: 85025; 80048; 36415; 82947 ×3; 96360; 96372; 99284; J1170; J7030

== ENCOUNTER 2021-08-20 22:40 | Emergency (ER) | payer OTHER ==
[2021-08-20] MEDS ORDERED: HYDROMORPHONE HCL 1 MG/ML INJ ONE (23:07)
--- NOTE | 2021-08-20 23:13 | ER ---
Nurse's Notes [facility] Name: Kiel Ngo Age: 70 yrs Sex: Male : 1950 Arrival Date: 08/20/2021 Time: 22:52 Bed 16 Private MD: Diagnosis: Chronic pain syndrome Presentation: 08/20 22:57 Chief complaint: Patient states: My leg pain. Coronavirus screen: Vaccine status: dc2 Patient reports being unvaccinated. Client denies travel out of the [place] in the last 14 days. Ebola Screen: Patient negative for fever greater than or equal to 101.5 degrees Fahrenheit, and additional compatible Ebola Virus Disease symptoms Patient denies exposure to infectious person. Patient denies travel to an Ebola-affected area in the 21 days before illness onset. No symptoms or risks identified at this time. 22:57 Method Of Arrival: EMS: [facility] dc2 22:59 Initial Sepsis Screen: Does the patient meet any 2 criteria? No. Patient's initial dc2 sepsis screen is negative. Does the patient have a suspected source of infection? No. Patient's initial sepsis screen is negative. Risk Assessment: Do you want to hurt yourself or someone else? Patient reports no desire to harm self or others. Note Pt states has had leg pain for many years since back surgery. Onset of symptoms is unknown. 22:59 Acuity: JOZEF 4 dc2 Triage Assessment: 23:00 General: Appears in no apparent distress. obese, well groomed, Behavior is calm, dc2 cooperative. Pain: Complains of pain in bilateral legs and feet. 23:00 Neuro: No deficits noted. Level of Consciousness is awake, alert, obeys commands, dc2 Oriented to person, place, time, situation. Respiratory: No deficits noted. Airway is patent Breath sounds are clear bilaterally. Musculoskeletal: Capillary refill < 3 seconds, in right in bilateral toes. Pt unable to walk due to weakness and pain. States is bedridden " for a long time" legs / feet are internally rotated. Injury Description: has had back surgeries that didn't do so well over the years. Historical: - Allergies: 23:17 Demerol; dc2 23:17 Morphine; dc2 23:17 metformin; dc2 - Home Meds: 23:17 alprazolam 0.25 mg Oral tab 1 tab PRN for Anxiety [Active]; Benadryl 50mg Oral dc2 [Active]; Effexor XR 150 mg Oral cp24 [Active]; insulin SQ [Active]; venlafaxine 150 mg Oral cp24 1 cap twice a day [Active]; tizanidine 4 mg Oral cap [Active]; hydromorphone 4 mg Oral tab 1 tab every 6 hours for Pain (Last Dose: 07/27/2021) [Active]; - PSHx: 23:17 back sx; dc2 - Immunization history:: Adult Immunizations up to date, Client reports having NOT received the Covid vaccine. Last tetanus immunization: unknown. - Family history:: not pertinent. - Social history:: Smoking status: unknown. - Hospitalizations: : No recent hospitalization is reported. Screenin:00 Abuse screen: Denies threats or abuse. Denies injuries from another. Nutritional dc2 screening: No deficits noted. Tuberculosis screening: No symptoms or risk factors identified. Never had TB. Fall Risk None identified. Fall in past 12 months (25 points). Secondary diagnosis (15 points) No IV (0 pts). Ambulatory Aid- None/Bed Rest/Nurse Assist (0 pts). Gait- Impaired (20 pts.). Mental Status- Oriented to own ability (0 pts). Total Chow Fall Scale indicates High Risk Score (45 or more points). Assessment: 23:00 General: Appears in no apparent distress. obese, Behavior is calm, cooperative. Pain: dc2 Complains of pain in left leg and right leg. Neuro: No deficits noted. Level of Consciousness is awake, alert, obeys commands, Oriented to person, place, time, situation. Respiratory: No deficits noted. Airway is patent Breath sounds are clear bilaterally. Musculoskeletal: Reports weakness in left leg and right leg since Many many years ago and hasn't been able to walk in a few years. . 23:20 Reassessment: Pt discharged, [facility] asked to arrange transportation. dc2 Vital Signs: 22:57 BP 135 / 85; Pulse 117; Resp 18; Temp 97.6; Pulse Ox 98% ; Weight 77.11 kg; Height 5 dc2 ft. 9 in. (175.26 cm); Pain 10/10; 23:31 BP 154 / 92; Pulse 117; Resp 18; Temp 97.5(O); Pulse Ox 99% on R/A; Pain 4/10; dc2 22:57 Body Mass Index 25.10 (77.11 kg, 175.26 cm) dc2 ED Course: 22:52 Patient arrived in ED. cc4 22:53 Michael Bosch MD is Attending Physician. rn 22:56 Gloria Wooten RN is Primary Nurse. dc2 23:00 Triage completed. dc2 23:00 Patient has correct armband on for positive identification. Placed in gown. Bed in low dc2 position. Call light in reach. Side rails up X 1. Pulse ox on. NIBP on. 23:00 Patient did not have IV access during this emergency room visit. dc2 23:00 No provider procedures requiring assistance completed. dc2 23:07 Arm band placed on right wrist. dc2 23:35 transfer transportation to receiving facility. dc2 Administered Medications: 23:09 Drug: Dilaudid (HYDROmorphone) 1 mg Route: IM; Site: right deltoid; dc2 23:36 Follow up: Response: Pain is decreased dc2 Outcome: 23:12 Discharge ordered by . rn 23:21 Discharged to home via ambulance. dc2 23:21 Condition: stable 23:21 Discharge instructions given to patient, Instructed on discharge instructions, follow up and referral plans. Demonstrated understanding of instructions, follow-up care. 11 00:01 Patient left the ED. dc2 Signatures: Michael Bosch MD MD rn Cooper, Christie, RN RN cc4 Gloria Wooten RN RN dc2
--- NOTE | 2021-08-20 23:13 | EDPHYS ---
Physician Documentation [facility] Name: Kiel Ngo Age: 70 yrs Sex: Male : 1950 Arrival Date: 08/20/2021 Time: 22:52 Bed 16 Private MD: ED Physician Michael Bosch HPI: 08/20 23:07 This 70 yrs old Male presents to ER via EMS with complaints of Chronic leg rn Pain. 23:07 The patient presents with pain, that is chronic. The complaints affect the right leg rn and left leg. Onset: The symptoms/episode began/occurred at an unknown time. Modifying factors: The symptoms are alleviated by Hydromorphone. Associated signs and symptoms: Pertinent negatives fever, swelling, warmth. Severity of symptoms: At their worst the symptoms were moderate, in the emergency department the symptoms are unchanged. The patient has experienced similar episodes in the past, chronically. The patient has been recently seen by a physician:. Patient states has chronic lower extremity pain that has been getting worse the last few years. States normally gets prescribed hydromorphone by pain management doctor but was taking extra doses so right now and unable to get back in. Denies any new symptoms or injury. States shooting pains up and down legs. States comes in for pain medication shot then goes home and sometimes has to do this twice a week.. Historical: - Allergies: 23:17 Demerol; dc2 23:17 Morphine; dc2 23:17 metformin; dc2 - Home Meds: 23:17 alprazolam 0.25 mg Oral tab 1 tab PRN for Anxiety [Active]; Benadryl 50mg Oral dc2 [Active]; Effexor XR 150 mg Oral cp24 [Active]; insulin SQ [Active]; venlafaxine 150 mg Oral cp24 1 cap twice a day [Active]; tizanidine 4 mg Oral cap [Active]; hydromorphone 4 mg Oral tab 1 tab every 6 hours for Pain (Last Dose: 07/27/2021) [Active]; - PSHx: 23:17 back sx; dc2 - Immunization history:: Adult Immunizations up to date, Client reports having NOT received the Covid vaccine. Last tetanus immunization: unknown. - Family history:: not pertinent. - Social history:: Smoking status: unknown. - Hospitalizations: : No recent hospitalization is reported. ROS: 23:07 Constitutional: Negative for fever, chills, and weight loss, Eyes: Negative for injury, rn pain, redness, and discharge, Neck: Negative for injury, pain, and swelling, Cardiovascular: Negative for chest pain, palpitations, and edema, Respiratory: Negative for shortness of breath, cough, wheezing, and pleuritic chest pain, Abdomen/GI: Negative for abdominal pain, nausea, vomiting, diarrhea, and constipation, : Negative for injury, bleeding, discharge, and swelling, MS/Extremity: Positive for pain to bilateral lower extremities Skin: Negative for injury, rash, and discoloration, Neuro: Negative for headache, and seizure. Exam: 23:07 Constitutional: This is a well developed, well nourished patient who is awake, alert, rn and in no acute distress. Head/Face: Normocephalic, atraumatic. Cardiovascular: Tachycardic, regular, no pulse deficits Respiratory: No increased work of breathing, no retractions or nasal flaring. Abdomen/GI: Soft, non-tender Skin: Warm, dry, no evidence of cellulitis. MS/ Extremity: Pulses equal, no cyanosis. Neurovascular intact. Able to move both feet but obviously deconditioned Neuro: Awake and alert, GCS 15 Vital Signs: 22:57 BP 135 / 85; Pulse 117; Resp 18; Temp 97.6; Pulse Ox 98% ; Weight 77.11 kg; Height 5 dc2 ft. 9 in. (175.26 cm); Pain 10/10; 23:31 BP 154 / 92; Pulse 117; Resp 18; Temp 97.5(O); Pulse Ox 99% on R/A; Pain 4/10; dc2 22:57 Body Mass Index 25.10 (77.11 kg, 175.26 cm) dc2 MDM: 22:53 Patient medically screened. rn 23:07 Differential diagnosis: chronic pain. Data reviewed: vital signs, nurses notes, old rn medical records, and as a result, I will discharge patient. Counseling: I had a detailed discussion with the patient and/or guardian regarding: the historical points, exam findings, and any diagnostic results supporting the discharge/admit diagnosis, the need for outpatient follow up, to return to the emergency department if symptoms worsen or persist or if there are any questions or concerns that arise at home. Response to treatment: the patient's symptoms have mildly improved after treatment, and as a result, I will discharge patient. Special discussion: I discussed with the patient/guardian in detail that at this point there is no indication for admission to the hospital. It is understood, however, that if the symptoms persist or worsen the patient needs to return immediately for re-evaluation. Based on the history and exam findings, there is no indication for further emergent testing or inpatient evaluation. I discussed with the patient/guardian the need to see the statuary painter for further evaluation of the symptoms. ED course: Had long discussion with patient regarding pain management and use of ER for pain management, will f/u with his pain management doctor.. Administered Medications: 23:09 Drug: Dilaudid (HYDROmorphone) 1 mg Route: IM; Site: right deltoid; dc2 23:36 Follow up: Response: Pain is decreased dc2 Disposition Summary: 08/20/21 23:12 Discharge Ordered Location: Home rn Problem: chronic rn Symptoms: have improved rn Condition: Stable rn Diagnosis - Chronic pain syndrome rn Followup: rn - With: Private Physician - When: As needed - Reason: Recheck today's complaints, Re-evaluation by your physician Discharge Instructions: - Discharge Summary Sheet rn - Chronic Pain, Adult rn Forms: - Medication Reconciliation Form rn - Thank You Letter rn - Antibiotic employment law attorney - Prescription Opioid Use rn Signatures: Michael Bosch MD MD rn Gloria Wooten RN RN dc2
[2021-08-21 00:45] VITALS: BP 154/92; TEMP 97.5; O2SAT 99
--- OUTSIDE RECORDS SUMMARY | 2021-08-25 17:35 | XMS REPORT | Continuity of Care Document ---
:1950 Author Organization [facility] t Address [address] [place] [address] [place] [id number] Care Team Providers Name Role Phone Edy Samanta Primary Care Physician CECILIO WASHINGTON Attending Clinician Unavailable GIRISH Attending Clinician Unavailable Girish VILLAREAL Attending Clinician ZAKI Attending Clinician Unavailable Hawa Lagos MD Attending Clinician Lorraine CORTEZ Attending Clinician Singer WATTS Attending Clinician Kassie Harrison MD Attending Clinician Nilda Kauffman MD Attending Clinician Attending Clinician Unavailable Doctor Unassigned, Name Attending Clinician Unavailable Wilder VILLAREAL, K.H. Attending Clinician Eliot VILLAREAL Attending Clinician Cecilio Washington MD Attending Clinician Kika Gallardo MD Attending Clinician KIKA GALLARDO Admitting Clinician Unavailable Kassie Harrison MD Admitting Clinician Kika Gallardo MD Admitting Clinician Payers Payer Name Policy Type Policy Number Effective Date Expiration Date S ource MEDICARE PART A [id number] 2007 \\T\\ B 00:00:00 [employer] INDEMNITY [id number] 2016 00:00:00 MEDICARE PART A [id number] 2014 \\T\\ B - MEDICARE 00:00:00 INDEMNITY/TRADITIO [id number] NAL CHOICE - [employer] 00:00:00 Problems Condition Condition Condition Status Onset Resolution Last Treating Co mments Source Name Details Category Date Date Treatment Clinician Date Elevated Elevated Disease Active Unive rs LFTs LFTs 2-05 ity of 00:00: [place] [facility] Abnormal Abnormal Disease Active Unive rs CXR CXR 2-05 ity of 00:00: Medical Branch Elevated Elevated Disease Active Unive rs LFTs LFTs 2-05 ity of 00:00: [place] 00 Medical Branch Cellulitis Cellulitis Disease Active U nivers 2-04 ity of 00:00: [place] 00 Medical Branch Rash Rash Disease Active 2019- Univers 1-09 ity of 00:00: [place] 00 Medical Branch Allergies, Adverse Reactions, Alerts Allergy Allergy Status Severity Reaction(s) Onset Inactive Treating Comm ents Source Name Type Date Date Clinician [place] Propensi Active Rash 2019- Univers ty to 1-10 ity of adverse 00:00: [place] reaction 00 Medical s Branch PEACH DRUG Active Rash 2019- Univers INGREDI 1-10 ity of 00:00: [place] 00 Medical Branch Lidocain Drug Active Itching 2019- Univers e Allergy -09 ity of 00:00: [place] 00 Medical Branch LIDOCAIN DRUG Active ITCHING 2019- Univers E INGREDI -09 ity of 00:00: [place] 00 Medical Branch Meperidi Propensi Active Anaphylaxis 2011-0 U nivers ne ty to 3-16 ity of adverse 00:00: [place] reaction 00 Medical s Branch Glimepir Propensi Active Hives 0 Univer s efren ty to 3-16 ity of adverse 00:00: [place] reaction 00 Medical s Branch Metformi Propensi Active Itching 0 Unive rs n ty to 3-16 ity of adverse 00:00: [place] reaction 00 Medical s Branch MEPERIDI DRUG Active Anaphylaxis Uni vers NE INGREDI 3-16 ity of 00:00: [place] 00 Medical Branch GLIMEPIR DRUG Active Hives Univers EFREN INGREDI 3-16 ity of 00:00: [place] 00 Medical Branch METFORMI DRUG Active ITCHING Univers N INGREDI 3-16 ity of 00:00: [place] 00 Medical Branch Social History Social Habit Start Date Stop Date Quantity Comments Source Exposure to Not sure University of SARS-CoV-2 [facility] (event) Branch History of Chews Tobacco University of tobacco use [facility] History [facility] 2020-11-17 2020-11-17 5 University o f Financial 00:00:00 00:00:00 [facility] History [facility] Food 2020-11-17 2020-11-17 1 Univers ity of Worry 00:00:00 00:00:00 [facility] History [facility] Food 2020-11-17 2020-11-17 1 Univers ity of Scarcity 00:00:00 00:00:00 [facility] Branch History [facility] 2020-11-17 2020-11-17 1 University o f Transport Med 00:00:00 00:00:00 [place] Medic al Branch History [facility] 2020-11-17 2020-11-17 1 University o f Transport Non-Med 00:00:00 00:00:00 [facility] edical Branch Education 2020-11-16 2020-11-16 21 [facility] 00:00:00 00:00:00 [facility] Alcohol intake 2020-11-16 2020-11-16 Ex-drinker [facility] 00:00:00 00:00:00 (finding) [facility] Tobacco use and 2020-08-21 2020-08-21 Former user Universi ty of exposure 00:00:00 00:00:00 [facility] Tobacco Comment 2020-08-21 2020-08-21 quit 10 years Univer sity of 00:00:00 00:00:00 ago, started in [place] Med ical 2nd year of Branch college (~40 years) Alcohol Comment 2020-08-21 2020-08-21 Used to have 2-3 Uni versity of 00:00:00 00:00:00 six-packs of [place] Medica l beer daily x 20 Branch years, quit 2005 History [facility] 2020-08-21 2020-08-21 99 University o f Alcohol Frequency 00:00:00 00:00:00 [place] M edical Branch History [facility] 2020-08-21 2020-08-21 99 University o f Alcohol Std 00:00:00 00:00:00 [place] Medical Drinks Branch History [facility] 2020-08-21 2020-08-21 99 [place] o f Alcohol Binge 00:00:00 00:00:00 [place] Medic al Branch Sex [birth year] Universit y of 00:00:00 00:00:00 [place] [facility] [place] Smoking Status Start Date Stop Date Source Never smoker [facility] Medications Ordered Filled Start Stop Current Ordering Indication Dosage Frequency Signature Comments Components Source Medication Medication Date Date Medication? Clinician (SIG) Name Name FENTanyl PF 2020-10 No 100ug 100 mcg, Univers (SUBLIMAZE 10-22 Slow IV ity o f (PF)) 13:30: 12:35 Push, [place] injection 00 :00 ONCE, 1 Medical 100 mcg dose, On Branch Fri08/22/21 at 0730, KAHLIL INSULIN Yes 5U inject 5 Univer s ASPART 3-07 Units ity of (NOVOLOG 22:47: [place] FLEXPEN [place]) 18 skin. Medical Branch mirtazapine Yes 7.5mg Take 7.5 U nivers 7.5 mg 3-07 mg by ity of tablet 22:47: mouth at [place] 18 bedtime. Medical Branch HYDROmorpho Yes 4mg Take 4 mg U nivers ne 3-07 by mouth 2 ity of (DILAUDID) 22:47: (two) [place] 2 mg tablet 18 times Medical daily. Branch INSULIN Yes 5U inject 5 Univer s ASPART 3-07 Units ity of (NOVOLOG 22:47: [place] FLEXPEN [place]) 18 skin. Medical Branch mirtazapine Yes 7.5mg Take 7.5 U nivers 7.5 mg 3-07 mg by ity of tablet 22:47: mouth at [place] 18 bedtime. Medical Branch HYDROmorpho Yes 4mg Take 4 mg U nivers ne 3-07 by mouth 2 ity of (DILAUDID) 22:47: (two) [place] 2 mg tablet 18 times Medical daily. Branch INSULIN 2020-0 Yes 5U inject 5 Univer s ASPART 3-07 Units ity of (NOVOLOG 22:47: [place] the [place] FLEXPEN [place]) 18 skin. Medical Branch mirtazapine Yes 7.5mg Take 7.5 U nivers 7.5 mg 3-07 mg by ity of tablet 22:47: mouth at [place] 18 bedtime. Medical Branch HYDROmorpho 0 Yes 4mg Take 4 mg U nivers ne 3-07 by mouth 2 ity of (DILAUDID) 22:47: (two) [place] 2 mg tablet 18 times Medical daily. Branch INSULIN Yes 5U inject 5 Univer s ASPART 3-07 Units ity of (NOVOLOG 16:47: [place] the [place] FLEXPEN SC) 18 skin. Medical Branch mirtazapine Yes 7.5mg Take 7.5 U nivers 7.5 mg 3-07 mg by ity of tablet 16:47: mouth at [place] 18 bedtime. Medical Branch HYDROmorpho Yes 4mg Take 4 mg U nivers ne 3-07 by mouth 2 ity of (DILAUDID) 16:47: (two) [place] 2 mg tablet 18 times Medical daily. Branch NaCl 0.9% Yes 500mL at 100 Unive rs (NS) IV 3-07 mL/hr, IV ity of infusion 14:45: Infusion, [place] 500 mL 00 CONTINUOUS Medical , Starting Branch 12/17/20 at 0845, Until Discontinu ed, Routine amLODIPine Yes [id number] 10mg Take 1 Univers 10 mg 3-07 tablet by ity of tablet 00:00: mouth [place] 00 daily. Medical Branch clotrimazol Yes [id number] Apply to Univers e 1 % 3-07 face/ears, ity of topical 00:00: armpits, [place] cream 00 pannus and Medical back/any Branch other rash twice a day fluocinonid Yes [id number] Apply to Univers e 0.05 % -07 scalp ity of solution 00:00: twice a [place] 00 day Medical Branch triamcinolo Yes [id number] Apply to Univers ne 3-07 back, ity of acetonide 00:00: armpits [place] 0.1 % cream 00 and other Med ical affected Branch areas twice daily, please mix with clotrimazo le hydrOXYzine Yes [id number] 10mg Take 1 Univers 10 mg 3-07 tablet by ity of tablet 00:00: mouth 2 00 (two) Medical times Branch daily. amLODIPine Yes [id number] 10mg Take 1 Univers 10 mg 3-07 tablet by ity of tablet 00:00: mouth [place] 00 daily. Medical Branch clotrimazol 0 Yes [id number] Apply to Univers e 1 % 3-07 face/ears, ity of topical 00:00: armpits, [place] cream 00 pannus and Medical back/any Branch other rash twice a day fluocinonid 0 Yes [id number] Apply to Univers e 0.05 % 3-07 scalp ity of solution 00:00: twice a day Medical Branch triamcinolo Yes [id number] Apply to Univers ne 3-07 back, ity of acetonide 00:00: armpits [place] 0.1 % cream 00 and other Med ical affected Branch areas twice daily, please mix with clotrimazo le hydrOXYzine Yes [id number] 10mg Take 1 Univers 10 mg 3-07 tablet by ity of tablet 00:00: mouth 2 00 (two) Medical times Branch daily. amLODIPine Yes [id number] 10mg Take 1 Univers 10 mg 3-07 tablet by ity of tablet 00:00: mouth 00 daily. Medical Branch clotrimazol 2020-0 Yes [id number] Apply to Univers e 1 % 3-07 face/ears, ity of topical 00:00: armpits, [place] cream 00 pannus and Medical back/any Branch other rash twice a day fluocinonid 2020-0 Yes [id number] Apply to Univers e 0.05 % 3-07 scalp ity of solution 00:00: twice a [place] 00 day Medical Branch triamcinolo 2020-0 Yes [id number] Apply to Univers ne 3-07 back, ity of acetonide 00:00: armpits [place] 0.1 % cream 00 and other Med ical affected Branch areas twice daily, please mix with clotrimazo le hydrOXYzine Yes [id number] 10mg Take 1 Univers 10 mg 3-07 tablet by ity of tablet 00:00: mouth 2 [place] 00 (two) Medical times Branch daily. amLODIPine Yes [id number] 10mg Take 1 Univers 10 mg 3-07 tablet by ity of tablet 00:00: mouth [place] 00 daily. Medical Branch clotrimazol Yes [id number] Apply to Univers e 1 % 3-07 face/ears, ity of topical 00:00: armpits, [place] cream 00 pannus and Medical back/any Branch other rash twice a day fluocinonid Yes [id number] Apply to Univers e 0.05 % 12-17 scalp ity of solution 00:00: twice a [place] 00 day Medical Branch triamcinolo Yes [id number] Apply to Univers ne 3-07 back, ity of acetonide 00:00: armpits [place] 0.1 % cream 00 and other Med ical affected Branch areas twice daily, please mix with clotrimazo le hydrOXYzine Yes [id number] 10mg Take 1 Univers 10 mg 3-07 tablet by ity of tablet 00:00: mouth 2 [place] 00 (two) Medical times Branch daily. cephALEXin 2020- No [id number] 500mg Take 1 Univers 500 mg -04 14- capsule by ity of capsule 00:00: 05:59 mouth [place] 00 :00 every 6 Medical (six) Branch hours for 3 days. cephALEXin 2020-0 2020- No [id number] 500mg Take 1 Univers 500 mg 3-04 14- capsule by ity of capsule 00:00: 05:59 mouth [place] 00 :00 every 6 Medical (six) Branch hours for 3 days. hydrOXYzine 2020-2020- No [id number] 10mg Take 1 Univers 10 mg 3-04 14-07 tablet by ity of tablet 00:00: 00:00 mouth 2 [place] 00 :00 (two) Medical times Branch daily. morpHINE Yes 4mg 4 mg, Slow Uni vers injection 4 - IV Push, ity of mg 22:40: Q6HPRN, [place] 02 Starting Medical 12/16/20 Branch at 1640, Until Discontinu ed, Routine, Pain (scale 7-10) NaCl 0.9% 2020- No 500mL at 999 Univ ers (NS) bolus 12-16 03-06 mL/hr, 500 it y of infusion 19:30: 21:37 mL, IV [place] 500 mL 00 :00 Piggyback, Medical ONCE, 1 Branch dose, 12/16/20 at 1330, KAHLIL metoclopram Yes 10mg 10 mg, IV U nivers efren HCl 12-16 Piggyback, ity of (REGLAN) 10 18:30: Q6HPRN, [place] mg in NaCl 00 Starting Medic al 0.9% (NS) 12/16/20 Bran ch piggyback at 1230, Until Discontinu ed, 50 mL morpHINE 2020- No 4mg 4 mg, Slow Un toi injection 4 12-16 03-06 IV Push, ity of mg 11:15: 10:58 ONCE, 1 [place] 00 :00 dose, Sat Medical 12/16/20 at Branch 0515, Routine lactated 2020- No 1000mL at 125 Univ ers ringers IV 12-16 03-06 mL/hr, ity of infusion 01:00: 00:16 1,000 mL, [place] 1,000 mL 00 :00 IV Medical Infusion, Branch ONCE, 1 dose, 12/15/20 at 1900, Routine iohexol 2020- No 100mL 100 mL, Unive rs (OMNIPAQUE 12-15 Intravenou it y of 350 22:24: 22:24 s, ONCE, 1 [place] BULK-100 00 :00 dose, Fri Medica l mL) 12/15/20 at [place] injection 1645, 100 mL Routine cephALEXin 2020- No 500mg 500 mg, Un toi (KEFLEX) 12-15 03-10 Oral, Q6H, ity of capsule 500 19:00: 17:59 20 doses, [place] mg 00 :00 First dose Medical on Fri Branch 12/15/20 at 1300, Last dose on Fri12/20/20 at 0600, KAHLIL
Re ason for Anti-Infec tive: Documented Infection< br>Documen ronan Infection Site: Skin / Soft Tissue
Duration of Therapy: 7 days NaCl 0.9% 2020- No 500mL at 999 [facility] ers (NS) bolus 12-15 mL/hr, 500 it y of infusion 16:00: 15:26 mL, IV [place] 500 mL 00 :00 Piggyback, [facility] ONCE, 1 Branch dose, Fri12/15/20 at 1000, STAT HYDROmorpho Yes 4mg 4 mg, [facility] ne 12-15 Oral, BID, ity of (DILAUDID) 15:30: First dose [place] tablet 4 mg 00 (after Medica l last Branch modificati on) on Fri12/15/20 at 0930, Until Discontinu ed, Routine amLODIPine 2020- No [id number] 10mg Take 1 Univers 10 mg 12-15 tablet by ity of tablet 00:00: 00:00 mouth [place] 00 :00 daily. Medical Branch HYDROmorpho 2020- No 1mg 1 mg, [facility] ers ne 12-14 Oral, ity of (DILAUDID) 17:35: 15:18 Q6HPRN, [place] tablet 1 mg 30 :[address] [facility] 12/14/20 Branch at 1135, Until Fri12/15/20 at 0918, Routine, Pain (scale 7-10) hydrOXYzine Yes 10mg 10 mg, [facility] ers (ATARAX) 12-14 Oral, BID, ity o f tablet 10 17:30: First dose [place] mg 00 on [facility] 12/14/20 at Branch 1130, Until Discontinu ed, Routine lisinopriL Yes 5mg 5 mg, Univer s (PRINIVIL,Z 12-14 Oral, ity of ESTRIL) 17:30: DAILY, [place] tablet 5 mg 00 First dose Me dical on [facility] 12/14/20 at 1130, Until Discontinu ed, Routine triamcinolo 2020- No [id number] Apply to [facility] 12-14 back, ity of acetonide 00:00: 00:00 armpits [place] 0.1 % cream 00 :00 and other Med ical affected Branch areas twice daily, please mix with clotrimazo le clotrimazol 2020- No [id number] Apply to Univers e 1 % 12-14 face/ears, ity of topical 00:00: 00:00 armpits, [place] cream 00 :00 pannus and Medical back/any Branch other rash twice a day fluocinonid 2020- No [id number] Apply to Univers e 0.05 % 12-14 scalp ity of solution 00:00: 00:00 twice a [place] 00 :00 day Medical Branch hydrOXYzine 2020- No [id number] 10mg Take 1 Univers 10 mg 12-14 tablet by ity of tablet 00:00: 00:00 mouth 2 [place] 00 :00 (two) Medical times Branch daily. metoclopram No 10mg 10 mg, IV Univers efren HCl 12-14 Piggyback, ity o f (REGLAN) 10 00:00: 18:22 Q6H, First [place] mg in NaCl 00 :41 dose on Medica l 0.9% (NS) Fri12/13/20 Bran ch piggyback at 1800, Until Discontinu ed, 50 mL labetaloL No 20mg 20 mg, Unive rs (NORMODYNE) 12-13 Slow IV ity of injection 21:57: 23:52 Push, [place] 20 mg 00 :00 ONCE, 1 Medical dose, Fri Branch 12/13/20 at 1600, Routine amLODIPine Yes 10mg 10 mg, Unive rs (NORVASC) 12-13 Oral, ity of tablet 10 21:00: DAILY, [place] mg 00 First dose Medical on Fri Branch 12/13/20 at 1500, Until Discontinu ed, Routine proMETHazin 2020- No 25mg 25 mg, IV Univers e 12-13 Piggyback, ity of (PHENERGAN) 14:22: 21:56 Q4HPRN, [place] 25 mg in 04 :32 Starting Medical NaCl 0.9% Fri12/13/20 Bran ch (NS) 50 mL at 0822, IV Until Fri piggyback 12/13/20 at 1556, Routine, Nausea and Vomiting (N/V), N/V unresponsi ve to Ondansetro n ondansetron Yes 4mg 4 mg, Slow Univers (ZOFRAN 03 IV Push, ity of (PF)) 10:07: Q6HPRN, [place] injection 4 28 Starting Medi jose c mg 12/13/20 Branch at 0407, Until Discontinu ed, Routine, Nausea and Vomiting (N/V) ondansetron 2020- No 4mg 4 mg, Slow Univers (ZOFRAN 12-13 03-03 IV Push, ity of (PF)) 04:55: 05:44 ONCE, 1 [place] injection 4 00 :00 dose, [facility] ical mg 12/12/20 at Branch 2300, Routine traMADoL 2020- No 50mg 50 mg, Univer s (ULTRAM) 3 03-03 Oral, ity of tablet 50 03:45: 03:34 ONCE, 1 [place] mg 00 :00 dose, [facility] 12/12/20 at Branch 2145, Routine insulin Yes 15U 15 Units, [facility] rs glargine 12-12 Subcutaneo ity o f (LANTUS 15:00: us, DAILY, [place] U-100) 00 First dose Medical injection on [facility] 15 Units 12/12/20 at 0900, Until Discontinu ed hydrOXYzine 2020- No 10mg 10 mg, Uni vers (ATARAX) 3 03-02 Oral, ity of tablet 10 08:15: 07:33 ONCE, 1 [place] mg 00 :00 dose, [facility] 12/12/20 at Branch 0215, Routine mirtazapine Yes 7.5mg 7.5 mg, Un toi (REMERON) 3-02 Oral, QHS, ity of tablet 7.5 03:00: First dose [place] mg 00 on [facility] 12/11/20 at Branch 2100, Until Discontinu ed, Routine venlafaxine Yes 300mg 300 mg, Un toi XR (EFFEXOR 3-02 Oral, QHS, it y of XR) 24 hr 03:00: First dose [place] capsule 300 00 on [facility] Medica l mg 12/11/20 at Branch 2100, Until Discontinu ed, Routine fluocinonid Yes Topical, Un toi e (LIDEX) 12-12 BID, First ity of 0.05 % 02:00: dose on [place] solution 00 Fri12/11/20 Medic al at 2000, Branch Until Discontinu ed, Routine acetaminoph 2020- No 1{tbl} 1 tablet, Univers en-codeine 12-11 03-05 Oral, ity of (TYLENOL 23:23: 13:49 Q6HPRN, [place] #3) 300-30 43 :08 Starting Medic al mg tablet 1 Fri12/11/20 Br anch tablet at 1723, Until Fri12/15/20 at 0749, Routine, Pain (scale 4-6) enoxaparin Yes 40mg 40 mg, Unive rs (LOVENOX) 12-11 Subcutaneo ity of injection 23:00: us, DAILY, [place] 40 mg 00 First dose Medical on Fri [place] 12/11/20 at 1700, Until Discontinu ed, Routine clotrimazol Yes Topical, Un toi e 12-11 BID, First ity of (LOTRIMIN) 19:15: dose on [place] 1 % topical Fri12/11/20 Me dical cream at 1315, Branch Until Discontinu ed, Routine hydrocortis Yes Topical Uni vers one 2.5 % 12-11 (Apply To ity o f cream 19:15: Affected 00 Areas), Medical BID, First Branch dose on Fri12/11/20 at 1315, Until Discontinu ed, Routine triamcinolo Yes Topical, Un toi ne 12-11 BID, First ity of acetonide 19:00: dose [place] (TRIDERM) 00 (after Medical 0.1 % cream last Branch modificati on) on Fri12/11/20 at 1300, Until Discontinu ed, Routine ceFAZolin 2020- No 1000mg 1,000 mg, Univers (ANCEF) 12-11 03-05 IV ity of 1,000 mg in 19:00: 17:35 Piggyback, [place] NaCl 0.9% 00 :26 Q8H ABX, Medica l (NS) 50 mL First dose Bra nch MINI-BAG on Fri12/11/20 at 1300, Until Discontinu ed, 50 mL
R jose armando for Anti-Infec tive: Documented Infection< br>Documen ronan Infection Site: Skin / Soft Tissue
Duration of Therapy: 7 days Sliding Yes Subcutaneo Univ ers Scale 12-11 us, TID ity of Insulin - 18:00: MEALS+HS, [place] as Lispro 00 First dose Medical (HumaLOG) + on Fri Branch Fsbg 12/11/20 at Testing 1200, Until Discontinu ed, Routine insulin Yes 5U 5 Units, [facility] [place] [facility] s lispro 12-11 Subcutaneo ity of (human) 18:00: us, TID [place] (HumaLOG 00 MEALS, Medical U-100) First dose Branch injection 5 on [facility] Units 12/11/20 at 1200, Until Discontinu ed Polyethylen Yes 17g 17 g, [facility] rs e Glycol 12-11 Oral, ity of 3350 17:47: S09LDUP, [place] (MIRALAX) 05 Starting Medica l powder 17 g 12/11/20 Br anch at 1147, Until Discontinu ed, Routine, Constipati on acetaminoph Yes 650mg 650 mg, Un toi en 12-11 Oral, ity of (TYLENOL) 16:51: Q6HPRN, [place] tablet 650 28 Starting Medic al mg Fri12/11/20 Branch at 1051, Until Discontinu ed, Routine, Pain (scale 1-3) FENTanyl PF No 75ug 75 mcg, Un toi (SUBLIMAZE 12-11 Slow IV ity o f (PF)) 15:00: 13:53 Push, [place] injection 00 :00 ONCE, 1 Medical 75 mcg dose, Mon Branch 12/11/20 at 0900, Routine vancomycin No 1000mg 1,000 mg, Univers (VANCOCIN) 12-11 IV ity of injection 14:00: 17:48 Piggyback, [place] 1,000 mg 00 :24 Q12H, Medical First dose Branch on Fri12/11/20 at 0800, Until Discontinu ed, KAHLIL
Re ason for Anti-Infec tive: Empiric Therapy for Suspected Infection< br>Empiric Therapy Site: Skin / Soft tissue
Duration of therapy: 72 hours NaCl 0.9% 2020- No 30mL/kg at 999 Un toi (NS) bolus 12-11 mL/hr, ity of infusion 12:30: 12:05 2,721 mL [place] 2,721 mL 00 :00 (30 mL/kg Medica l ?90.7 kg), Branch IV Piggyback, ONCE, 1 dose, 12/11/20 at 0630, STAT piperacilli 2020- No 3.375g 3.375 g, Univers n-tazobacta 12-11 IV ity of m (ZOSYN) 12:00: 17:48 Piggyback, [place] injection 00 :24 Q6H, First Medi jose c 3.375 g dose on Branch Fri12/11/20 at 0600, Until Discontinu ed, KAHLIL
Re ason for Anti-Infec tive: Empiric Therapy for Suspected Infection< br>Empiric Therapy Site: Skin / Soft tissue
Duration of therapy: 72 hours sennosides- Yes [id number] 1{tbl} Take 1 [facility] docusate 2- tablet by ity of sodium 00:00: mouth 2 [place] 8.6-50 mg 00 (two) Medical per tablet times Branch daily. hydrocortis Yes [id number] Apply to [facility] one 2.5 % 11-21 affected ity of cream 00:00: area(s) 2 [place] 00 (two) Medical times Branch daily. blood sugar 0 Yes [id number] Use to [facility] diagnostic 11-21 check ity of (FREESTYLE 00:00: blood [place] LITE 00 glucose Medical STRIPS) 4-5 times Branch strip daily. Polyethylen Yes [id number] 17g Take 1 Univers e Glycol 2- Packet by ity of 3350 17 00:00: mouth [place] gram powder 00 every 24 Medi jose c (twenty-fo Branch ur) hours as needed for Constipati on. sennosides- 2021-0 Yes [id number] 1{tbl} Take 1 Univers docusate 2-09 tablet by ity of sodium 00:00: mouth 2 [place] 8.6-50 mg 00 (two) Medical per tablet times Branch daily. hydrocortis 2020- Yes [id number] Apply to Univers one 2.5 % 2-09 affected ity of cream 00:00: area(s) 2 [place] 00 (two) Medical times Branch daily. blood sugar Yes [id number] Use to Univers diagnostic 11-21 check ity of (FREESTYLE 00:00: blood [place] LITE 00 glucose Medical STRIPS) 4-5 times Branch strip daily. Polyethylen 2020- Yes [id number] 17g Take 1 Univers e Glycol 2-09 Packet by ity of 3350 17 00:00: mouth [place] gram powder 00 every 24 Medi jose c (twenty-fo Branch ur) hours as needed for Constipati on. sennosides- Yes [id number] 1{tbl} Take 1 Univers docusate 2-09 tablet by ity of sodium 00:00: mouth 2 [place] 8.6-50 mg 00 (two) Medical per tablet times Branch daily. hydrocortis Yes [id number] Apply to Univers one 2.5 % 2- affected ity of cream 00:00: area(s) 2 [place] 00 (two) Medical times Branch daily. blood sugar Yes [id number] Use to [facility] diagnostic 11-21 check ity of (FREESTYLE 00:00: blood [place] LITE 00 glucose Medical STRIPS) 4-5 times Branch strip daily. Polyethylen 2020-0 Yes [id number] 17g Take 1 Univers e Glycol 2-09 Packet by ity of 3350 17 00:00: mouth [place] gram powder 00 every 24 Medi jose c (twenty-fo Branch ur) hours as needed for Constipati on. sennosides- 2020-0 Yes [id number] 1{tbl} Take 1 Univers docusate 2-09 tablet by ity of sodium 00:00: mouth 2 [place] 8.6-50 mg 00 (two) Medical per tablet times Branch daily. hydrocortis 2020-0 Yes [id number] Apply to Univers one 2.5 % 2-09 affected ity of cream 00:00: area(s) 2 [place] 00 (two) Medical times Branch daily. blood sugar Yes [id number] Use to [facility] diagnostic 11-21 check ity of (FREESTYLE 00:00: blood [place] LITE 00 glucose Medical STRIPS) 4-5 times Branch strip daily. Polyethylen Yes [id number] 17g Take 1 Univers e Glycol 11-21 Packet by ity of 3350 17 00:00: mouth [place] gram powder 00 every 24 Medi jose c (twenty-fo Branch ur) hours as needed for Constipati on. Insulin 2020- No [id number] 15U inject 15 Univers Glargine 11-21 Units ity of (LANTUS 00:00: 05:59 under the [place] SOLOSTAR 00 :00 skin every Medic al U-100 morning Branch INSULIN) for 30 100 unit/mL days. (3 mL) injection venlafaxine 2020- No [id number] 150mg Take 1 Univers XR 150 mg 11-21 capsule by ity of 24 hr 00:00: 05:59 mouth 3 [place] capsule 00 :00 (three) Medical times Branch daily for 30 days. Insulin 2020- No [id number] 15U inject 15 Univers Glargine 11-21 Units ity of (LANTUS 00:00: 05:59 under the [place] SOL[place] 00 :00 skin every Medic al U-100 morning Branch INSULIN) for 30 100 unit/mL days. (3 mL) injection venlafaxine 2020- No [id number] 150mg Take 1 Univers XR 150 mg 11-21 capsule by ity of 24 hr 00:00: 05:59 mouth 3 [place] capsule 00 :00 (three) Medical times Branch daily for 30 days. triamcinolo 2020- No [id number] Apply to [facility] ne 11-21- area(s) 2 ity of acetonide 00:00: 00:00 (two) [place] 0.1 % cream 00 :00 times Medical daily. Branch cephALEXin 2020- No [id number] 1000mg Take 2 [facility] 500 mg 11-21- capsules ity of capsule 00:00: 00:00 by mouth 3 [place] 00 :00 (three) Medical times Branch daily. doxycycline 2020- No [id number] 100mg Take 1 Univers hyclate 100 11-21 capsule by i ty of mg capsule 00:00: 00:00 mouth [place] 00 :00 every 12 Medical (twelve) Branch hours. lactobacill 2020- No [id number] 1{tbl} Take 1 [facility] us 11-21 tablet by ity of acidophilus 00:00: 00:00 mouth 2 [place] 25 million 00 :00 (two) Medical cell -100 times Branch mg captab daily. bisacodyL 2020- No [id number] 10mg Insert 1 [facility] 10 mg 11-21 Suppositor ity of suppository 00:00: 00:00 y into [place] 00 :00 rectum at Medical bedtime as Branch needed for Constipati on. ALPRAZolam 2020- No [id number] .25mg Take 1 Univers (XANAX) 11-21 tablet by ity of 0.25 mg 00:00: 00:00 mouth 2 [place] tablet 00 :00 (two) Medical times Branch daily. hydrOXYzine 2020- No [id number] 20mg Take 2 [facility] 10 mg 11-21 tablets by ity of tablet 00:00: 00:00 mouth [place] 00 :00 every 8 Medical (eight) Branch hours as needed for Itching or Anxiety. HYDROmorpho 2019-10 Yes 4mg Take 4 mg U nivers ne 4 mg 1-12 by mouth 2 ity of tablet 01:13: (two) [place] 36 times Medical daily. Branch HYDROMORPHO 2019-10 Yes Inject as Univers NE HCL 1-12 directed. ity of (DILAUDID 01:13: [place] INJECTION) 36 Medical Branch venlafaxine 2019-10 Yes 150mg Take 150 U nivers XR (EFFEXOR 1-12 mg by ity of XR) 150 mg 01:13: mouth 3 [place] 24 [place] 36 (three) Medical capsule times Branch daily. tizanidine 2019-10 Yes 6mg Take 6 mg Un toi (ZANAFLEX) 1-12 by mouth 3 ity of 6 mg 01:13: (three) [place] capsule 36 times Medical daily. Branch Insulin 2019-10 Yes 15U inject 15 Unive rs Glargine 1-12 Units ity of (LANTUS 01:13: under the [place] SOLOSTAR) 36 skin. Medical 100 unit/mL Branch (3 mL) In INSULIN 2019-10 Yes 5U inject 5 Univer s ASPART 1-12 Units ity of (NOVOLOG 01:13: [place] the [place] FLEXPEN [place] 36 skin. Medical Branch ALPRAZolam 2019-10 Yes .25mg Take 0.25 U nivers (XANAX) 1-12 mg by ity of 0.25 mg 01:13: mouth 2 [place] tablet 36 (two) Medical times Branch daily. HYDROmorpho 2019- Yes 4mg Take 4 mg U nivers ne 4 mg 1-12 by mouth 2 ity of tablet 01:13: (two) [place] 36 times Medical daily. Branch HYDROMORPHO 2019-10 Yes Inject as Univers NE HCL 1-12 directed. ity of (DILAUDID 01:13: [place] INJECTION) 36 Medical Branch venlafaxine 2019-10 Yes 150mg Take 150 U nivers XR (EFFEXOR 1-12 mg by ity of XR) 150 mg 01:13: mouth 3 [place] 24 [place] 36 (three) Medical capsule times Branch daily. tizanidine 2019-10 Yes 6mg Take 6 mg Un toi (ZANAFLEX) 1-12 by mouth 3 ity of 6 mg 01:13: (three) [place] capsule 36 times Medical daily. Branch Insulin 2019-10 Yes 15U inject 15 Unive rs Glargine 1-12 Units ity of (LANTUS 01:13: under the [place] SOLOSTAR) 36 skin. Medical 100 unit/mL Branch (3 mL) In INSULIN 2019-10 Yes 5U inject 5 Univer s ASPART 1-12 Units ity of (NOVOLOG 01:13: [place] the [place] FLEXPEN [place] 36 skin. Medical Branch ALPRAZolam 2019-10 Yes .25mg Take 0.25 U nivers (XANAX) 1-12 mg by ity of 0.25 mg 01:13: mouth 2 [place] tablet 36 (two) Medical times Branch daily. HYDROmorpho 2019- Yes 4mg Take 4 mg U nivers ne 4 mg 1-12 by mouth 2 ity of tablet 01:13: (two) [place] 36 times Medical daily. Branch HYDROMORPHO 2019-10 Yes Inject as Univers NE HCL 1-12 directed. ity of (DILAUDID 01:13: [place] INJECTION) 36 Medical Branch venlafaxine 2019-10 Yes 150mg Take 150 U nivers XR (EFFEXOR 1-12 mg by ity of XR) 150 mg 01:13: mouth 3 [place] 24 [place] 36 (three) Medical capsule times Branch daily. tizanidine 2019-10 Yes 6mg Take 6 mg Un toi (ZANAFLEX) 1-12 by mouth 3 ity of 6 mg 01:13: (three) [place] capsule 36 times Medical daily. Branch Insulin 2019-10 Yes 15U inject 15 Unive rs Glargine 1-12 Units ity of (LANTUS 01:13: under the [place] SOLOSTAR) 36 skin. Medical 100 unit/mL Branch (3 mL) InPn INSULIN 2019-10 Yes 5U inject 5 Univer s ASPART 1-12 Units ity of (NOVOLOG 01:13: under the [facility] FLEXPEN SC) 36 skin. Medical Branch ALPRAZolam 2019-10 Yes .25mg Take 0.25 U nivers (XANAX) 1-12 mg by ity of 0.25 mg 01:13: mouth 2 [place] tablet 36 (two) Medical times Branch daily. HYDROmorpho 2019- Yes 4mg Take 4 mg U nivers ne 4 mg 1-12 by mouth 2 ity of tablet 01:13: (two) [place] 36 times Medical daily. Branch HYDROMORPHO 2019-10 Yes Inject as Univers NE HCL 1-12 directed. ity of (DILAUDID 01:13: [place] INJECTION) 36 Medical Branch venlafaxine 2019-10 Yes 150mg Take 150 U nivers XR (EFFEXOR 1-12 mg by ity of XR) 150 mg 01:13: mouth 3 [place] 24 [place] 36 (three) Medical capsule times Branch daily. tizanidine 2019- Yes 6mg Take 6 mg Un toi (ZANAFLEX) 1-12 by mouth 3 ity of 6 mg 01:13: (three) [place] capsule 36 times Medical daily. Branch Insulin 2019- Yes 15U inject 15 Unive rs Glargine 1-12 Units ity of (LANTUS 01:13: under the [place] [facility] 36 skin. Medical 100 unit/mL Branch (3 mL) In INSULIN 2019-10 Yes 5U inject 5 Univer s ASPART 1-12 Units ity of (NOVOLOG 01:13: under the [facility] FLEXPEN SC) 36 skin. Medical Branch ALPRAZolam 2019-10 Yes .25mg Take 0.25 U nivers (XANAX) 1-12 mg by ity of 0.25 mg 01:13: mouth 2 [place] tablet 36 (two) Medical times Branch daily. HYDROmorpho 2019- Yes 4mg Take 4 mg U nivers ne 4 mg 1-12 by mouth 2 ity of tablet 01:13: (two) [place] 36 times Medical daily. Branch HYDROMORPHO 2019-10 Yes Inject as Univers NE HCL 1-12 directed. ity of (DILAUDID 01:13: [place] INJECTION) 36 Medical Branch venlafaxine 2019-10 Yes 150mg Take 150 U nivers XR (EFFEXOR 1-12 mg by ity of XR) 150 mg 01:13: mouth 3 [place] 24 hr 36 (three) Medical capsule times Branch daily. tizanidine 2019-10 Yes 6mg Take 6 mg Un toi (ZANAFLEX) 1-12 by mouth 3 ity of 6 mg 01:13: (three) [place] capsule 36 times Medical daily. Branch Insulin 2019-10 Yes 15U inject 15 Unive rs Glargine 1-12 Units ity of (LANTUS 01:13: under the [facility]) 36 skin. Medical 100 unit/mL Branch (3 mL) In INSULIN 2019-10 Yes 5U inject 5 Univer s ASPART 1-12 Units ity of (NOVOLOG 01:13: under the [facility] FLEXPEN MS) 36 skin. Medical Branch ALPRAZolam 2019- Yes .25mg Take 0.25 U nivers (XANAX) 1-12 mg by ity of 0.25 mg 01:13: mouth 2 [place] tablet 36 (two) Medical times Branch daily. HYDROmorpho 2019- Yes 4mg Take 4 mg U nivers ne 4 mg 1-12 by mouth 2 ity of tablet 01:13: (two) [place] 36 times Medical daily. Branch HYDROMORPHO 2019-10 Yes Inject as Univers NE HCL 1-12 directed. ity of (DILAUDID 01:13: [place] INJECTION) 36 Medical Branch venlafaxine 2019-10 Yes 150mg Take 150 U nivers XR (EFFEXOR 1-12 mg by ity of XR) 150 mg 01:13: mouth 3 [place] 24 hr 36 (three) Medical capsule times Branch daily. tizanidine 2019-10 Yes 6mg Take 6 mg Un toi (ZANAFLEX) 1-12 by mouth 3 ity of 6 mg 01:13: (three) [place] capsule 36 times Medical daily. Branch Insulin 2019-10 Yes 15U inject 15 Unive rs Glargine 1-12 Units ity of (LANTUS 01:13: under the [place] SOLOSTAR) 36 skin. Medical 100 unit/mL Branch (3 mL) InPn INSULIN 2019-10 Yes 5U inject 5 Univer s ASPART 1-12 Units ity of (NOVOLOG 01:13: [place] the [place] FLEXPEN SC[place] 36 skin. Medical Branch ALPRAZolam 2019-10 Yes .25mg Take 0.25 U nivers (XANAX) 1-12 mg by ity of 0.25 mg 01:13: mouth 2 [place] tablet 36 (two) Medical times Branch daily. HYDROmorpho 2019-10 Yes 4mg Take 4 mg U nivers ne 4 mg 1-12 by mouth 2 ity of tablet 01:13: (two) [place] 36 times Medical daily. Branch HYDROMORPHO 2019-10 Yes Inject as Univers NE HCL 1-12 directed. ity of (DILAUDID 01:13: [place] INJECTION) 36 Medical Branch venlafaxine 2019-10 Yes 150mg Take 150 U nivers XR (EFFEXOR 1-12 mg by ity of XR) 150 mg 01:13: mouth 3 [place] 24 hr 36 (three) Medical capsule times Branch daily. tizanidine 2019-10 Yes 6mg Take 6 mg Un toi (ZANAFLEX) 1-12 by mouth 3 ity of 6 mg 01:13: (three) [place] capsule 36 times Medical daily. Branch Insulin 2019-10 Yes 15U inject 15 Unive rs Glargine 1-12 Units ity of (LANTUS 01:13: under the [place] SOLOSTAR) 36 skin. Medical 100 unit/mL Branch (3 mL) InPn INSULIN 2019-10 Yes 5U inject 5 Univer s ASPART 1-12 Units ity of (NOVOLOG 01:13: [place] the [place] FLEXPEN SC[place] 36 skin. Medical Branch ALPRAZolam 2019-10 Yes .25mg Take 0.25 U nivers (XANAX) 1-12 mg by ity of 0.25 mg 01:13: mouth 2 [place] tablet 36 (two) Medical times Branch daily. HYDROXYZINE 2019-10 2020- No 25mg Take 25 mg Univers PAMOATE 1-11 11-11 by mouth ity of ORAL 20:04: 00:00 daily. [place] 34 :00 Medical Branch hydrocortis 2019- Yes [id number] Apply to Univers one 2.5 % 1-11 affected ity of cream 00:00: area(s) 2 [place] 00 (two) Medical times Branch daily. hydrOXYzine 2019-10 Yes [id number] 20mg Take 2 Univers 10 mg 1-11 tablets by ity of tablet 00:00: mouth [place] 00 every 8 Medical (eight) Branch hours as needed for Itching or Anxiety. Polyethylen 2019-10 Yes [id number] 17g Take 1 Univers e Glycol 1-11 Packet by ity of 3350 17 00:00: mouth [place] gram powder 00 every 24 Medi jose c (twenty-fo Branch ur) hours as needed for Constipati on. hydrocortis 2019-10 Yes [id number] Apply to Univers one 2.5 % 1-11 affected ity of cream 00:00: area(s) 2 [place] 00 (two) Medical times Branch daily. hydrOXYzine 2019- Yes [id number] 20mg Take 2 Univers 10 mg 1-11 tablets by ity of tablet 00:00: mouth [place] 00 every 8 Medical (eight) Branch hours as needed for Itching or Anxiety. Polyethylen 2019- Yes [id number] 17g Take 1 Univers e Glycol 1-11 Packet by ity of 3350 17 00:00: mouth [place] gram powder 00 every 24 Medi jose c (twenty-fo Branch ur) hours as needed for Constipati on. hydrocortis 2019-10 Yes [id number] Apply to [facility] one 2.5 % 1-11 affected ity of cream 00:00: area(s) 2 [place] 00 (two) Medical times Branch daily. hydrOXYzine 2019- Yes [id number] 20mg Take 2 Univers 10 mg 1-11 tablets by ity of tablet 00:00: mouth [place] 00 every 8 Medical (eight) Branch hours as needed for Itching or Anxiety. Polyethylen 2019- Yes [id number] 17g Take 1 Univers e Glycol 1-11 Packet by ity of 3350 17 00:00: mouth [place] gram powder 00 every 24 Medi jose c (twenty-fo Branch ur) hours as needed for Constipati on. hydrocortis 2019- Yes [id number] Apply to [facility] one 2.5 % 1-11 affected ity of cream 00:00: area(s) 2 [place] 00 (two) Medical times Branch daily. hydrOXYzine 2019- Yes [id number] 20mg Take 2 Univers 10 mg 1-11 tablets by ity of tablet 00:00: mouth [place] 00 every 8 Medical (eight) Branch hours as needed for Itching or Anxiety. Polyethylen 2019- Yes [id number] 17g Take 1 Univers e Glycol 1-11 Packet by ity of 3350 17 00:00: mouth [place] gram powder 00 every 24 Medi jose c (twenty-fo Branch ur) hours as needed for Constipati on. hydrocortis 2019- Yes [id number] Apply to Univers one 2.5 % 1-11 affected ity of cream 00:00: area(s) 2 [place] 00 (two) Medical times Branch daily. hydrOXYzine 2019- Yes [id number] 20mg Take 2 Univers 10 mg 1-11 tablets by ity of tablet 00:00: mouth [place] 00 every 8 Medical (eight) Branch hours as needed for Itching or Anxiety. Polyethylen 2019- Yes [id number] 17g Take 1 Univers e Glycol 1-11 Packet by ity of 3350 17 00:00: mouth [place] gram powder 00 every 24 Medi jose c (twenty-fo Branch ur) hours as needed for Constipati on. hydrocortis 2019- Yes [id number] Apply to [facility] one 2.5 % 1-11 affected ity of cream 00:00: area(s) 2 [place] 00 (two) Medical times Branch daily. hydrOXYzine 2019- Yes [id number] 20mg Take 2 [facility] 10 mg 1-11 tablets by ity of tablet 00:00: mouth [place] 00 every 8 Medical (eight) Branch hours as needed for Itching or Anxiety. Polyethylen 2019- Yes [id number] 17g Take 1 Univers e Glycol 1-11 Packet by ity of 3350 17 00:00: mouth [place] gram powder 00 every 24 Medi jose c (twenty-fo Branch ur) hours as needed for Constipati on. hydrocortis 2019-10 Yes [id number] Apply to [facility] one 2.5 % 1-11 affected ity of cream 00:00: area(s) 2 [place] 00 (two) Medical times Branch daily. hydrOXYzine 2019-10 Yes [id number] 20mg Take 2 Univers 10 mg 1-11 tablets by ity of tablet 00:00: mouth [place] 00 every 8 Medical (eight) Branch hours as needed for Itching or Anxiety. Polyethylen 2019-10 Yes [id number] 17g Take 1 Univers e Glycol 1-11 Packet by ity of 3350 17 00:00: mouth [place] gram powder 00 every 24 Medi jose c (twenty-fo Branch ur) hours as needed for Constipati on. triamcinolo 2019-10 2020- No [id number] Apply to [facility] 10-23 area(s) 2 ity of acetonide 00:00: 05:59 (two) [place] 0.1 % cream 00 :00 times Medical daily for Branch 14 days. triamcinolo 2019-10 2020- No [id number] Apply to [facility] 10-23 area(s) 2 ity of acetonide 00:00: 05:59 (two) [place] 0.1 % cream 00 :00 times Medical daily for Branch 14 days. triamcinolo 2019-10 2020- No [id number] Apply to [facility] 10-23 area(s) 2 ity of acetonide 00:00: 05:59 (two) [place] 0.1 % cream 00 :00 times Medical daily for Branch 14 days. KCL 2019-10 2020- No 40meq 40 mEq, Univers (KLOR-CON 10-22 11- Oral, ONCE ity of M20) tablet 16:15: 16:23 NOW, 1 [place] 40 mEq 00 :00 dose, [facility] Medical 08/22/20 Branch at 1015, Routine HYDROmorpho 2019-10 Yes 1mg 1 mg, Unive rs ne - Oral, ity of (DILAUDID) 15:07: Q6HPRN, [place] tablet 1 mg 53 Starting Medi jose c Tue Branch 08/22/20 at 0907, Until Discontinu ed, Routine, Pain (scale 7-10) hydrocortis 2019- Yes Topical Uni vers one 2.5 % 1-10 (Apply To ity o f cream 02:00: Affected [place] 00 Areas), Medical BID, First Branch dose on [facility] 08/21/20 at 2000, Until Discontinu ed, Routine triamcinolo 2019- Yes Topical, Un toi ne 1-10 BID, First ity of acetonide 02:00: dose on [place] (TRIDERM) 00 [facility] Medical 0.1 % cream 08/21/20 at Br anch 2000, Until Discontinu ed, Routine hydrOXYzine 2019-10 Yes 20mg 20 mg, Univ ers (ATARAX) 09 Oral, ity of tablet 20 17:39: Q8HPRN, [place] mg 12 Starting Medical [facility] 08/21/20 at 1139, Until Discontinu ed, Routine, Itching, Anxiety sennosides- 2019-10 Yes 1{tbl} 1 tablet, Univers docusate 10-21 Oral, ity of sodium 15:00: DAILY, [place] (SENOKOT-S) 00 First dose Me dical 8.6-50 mg on [facility] per tablet 08/21/20 at 1 tablet 0900, Until Discontinu ed, Routine hydrocortis 2019-10 2020- No Topical Un toi one 1 % 10-21 (Apply To ity of cream 15:00: 22:54 Affected [place] 00 :48 Areas), Medical DAILY, Branch First dose on [facility] 08/21/20 at 0900, Until Discontinu ed, Routine venlafaxine 2019-10 Yes 150mg 150 mg, Un toi XR (EFFEXOR 09 Oral, TID, it y of XR) 24 hr 14:00: First dose [place] capsule 150 00 on [facility] Medica l mg 08/21/20 at Branch 0800, Until Discontinu ed, Routine heparin 2019- Yes 5000U 5,000 Univers (porcine) 1-09 Units, ity of injection 14:00: Subcutaneo [place] 5,000 Units 00 us, Q12H, Med ical First dose Branch on [facility] 08/21/20 at 0800, Until Discontinu ed, Routine diphenhydrA 2019-10 2020- No 25mg 25 mg, Uni vers MINE 10-21 Oral, ity of (BENADRYL) 12:56: 17:39 Q8HPRN, [place] tablet 25 59 :43 Starting Medica l mg [facility] 08/21/20 at 0656, Until [facility] 08/21/20 at 1139, Routine, Itching, Mild Rash, Congestion /Allergies , alternate with hydroxyzin e hydrOXYzine 2019-10- No 10mg 10 mg, Uni vers (ATARAX) 10-21 Oral, ity of tablet 10 10:20: 12:57 Q6HPRN, [place] mg 22 :12 Starting [facility] 08/21/20 at 0420, Until [facility] 08/21/20 at 0657, Routine, Itching, Anxiety Sliding 2019-10 Yes Subcutaneo Univ ers Scale -09 us, Q4H, ity of Insulin - 10:00: First dose [place] Aspart 00 (after Medical (NOVOLOG) + last Branch Fsbg modificati Testing on) on [facility] 08/21/20 at 0400, Until Discontinu ed, Routine lidocaine 5 2019-10 2020- No Topical, U nivers % ointment 10-21 ONCE, 1 ity o f 09:30: 09:14 dose, [facility] 00 :00 08/21/20 at Medical 0330, Branch Routine Polyethylen 2019-10 Yes 17g 17 g, [place] [facility] rs e Glycol 10-21 Oral, ity of 3350 08:29: C59AHOG, [place] (MIRALAX) Starting Medica l powder 17 g [facility] 08/21/20 at 0229, Until Discontinu ed, Routine, Constipati on lanolin 2019-10 Yes Topical, [facility] [place] [facility] s alcohol-mo- 10-21 PRN, ity of w.pet-ceres 08:26: [place] (EUCERIN) 30 [facility] cream 08/21/20 at Branch 0226, Until Discontinu ed, Routine, Dermatitis /Rash ALPRAZolam 2019-10 Yes .25mg 0.25 mg, Un toi (XANAX) 10-21 Oral, ity of tablet 0.25 08:25: BIDPRN, [place] mg 41 Starting [facility] 08/21/20 at 0225, Until Discontinu ed, Routine, anxiety traZODONE 2019-10 2020- No 100mg Take 100 Un toi (DESYREL) 10-21 mg by ity of 100 mg 08:22: 00:00 mouth at [place] tablet 59 :00 bedtime. Medical Branch esomeprazol 2019-10- No 40mg Take 40 mg Univers e (NEXIUM) 10-21 by mouth ity of 40 mg 08:22: 00:00 daily with [place] capsule 59 :00 breakfast. Medica l Branch clonazepam 2019-10- No .25mg Take 0.25 Univers (KLONOPIN) 10-21 mg by ity of 0.25 mg 08:22: 00:00 mouth 2 [place] disintegrat 59 :00 (two) Medical ing tablet times Branch daily as needed. acetaminoph 2019-10 Yes 650mg 650 mg, Un toi en 10-21 Oral, ity of (TYLENOL) 07:45: Q6HPRN, [place] tablet 650 24 Starting Medic al mg [facility] Branch 08/21/20 at 0145, Until Discontinu ed, Routine, Pain (scale 1-3) sotalol 2019-10- No Take by Unive rs (BETAPACE) 10-21 mouth ity of 240 mg 07:43: 00:00 every 12 [place] tablet 30 :00 (twelve) Medical hours. Branch blood sugar Yes Use to [employer] ers diagnostic -25 check ity of (FREESTYLE 00:00: blood [place] LITE 00 glucose Medical STRIPS) 4-5 times Branch strip daily. blood sugar Yes Use to [employer] ers diagnostic -25 check ity of (FREESTYLE 00:00: blood [place] LITE 00 glucose Medical STRIPS) 4-5 times Branch strip daily. blood sugar Yes Use to [employer] ers diagnostic 4-25 check ity of (FREESTYLE 00:00: blood [place] LITE 00 glucose Medical STRIPS) 4-5 times Branch strip daily. blood sugar Yes Use to [employer] ers diagnostic 4-25 check ity of (FREESTYLE 00:00: blood [place] LITE 00 glucose Medical STRIPS) 4-5 times Branch strip daily. blood sugar Yes Use to [employer] ers diagnostic 4-25 check ity of (FREESTYLE 00:00: blood [place] LITE 00 glucose Medical STRIPS) 4-5 times Branch strip daily. blood sugar Yes Use to [facility] ers diagnostic 4-25 check ity of (FREESTYLE 00:00: blood [place] LITE 00 glucose Medical STRIPS) 4-5 times Branch strip daily. blood sugar Yes Use to Univ ers diagnostic 4-25 check ity of (FREESTYLE 00:00: blood [place] LITE 00 glucose Medical STRIPS) 4-5 times Branch strip daily. Vital Signs Vital Name Observation Time Observation Value Comments Source Systolic blood 2021-08-22 13:00:00 148 mm[Hg] Univer sity of pressure [facility] Diastolic blood 2021-08-22 13:00:00 84 mm[Hg] Unive rsity of [facility] Heart rate 2021-08-22 13:00:00 103 /min [facility] Respiratory rate 2021-08-22 13:00:00 18 /min [facility] Oxygen saturation in 2021-08-22 13:00:00 95 /min University of Arterial blood by [facility] Pulse oximetry Branch Body temperature 2021-08-22 12:22:00 36.72 [place] [facility] Systolic blood 2020-12-17 18:35:00 139 mm[Hg] Univer sity of pressure [facility] Diastolic blood 2020-12-17 18:35:00 87 mm[Hg] Unive rsity of [facility] Heart rate 2020-12-17 18:35:00 110 /min [facility] Body temperature 2020-12-17 18:35:00 37.72 [place] [facility] Respiratory rate 2020-12-17 18:35:00 18 /min [facility] O[facility] in 2020-12-17 18:35:00 93 /min University of Arterial blood by [facility] Pulse oximetry Branch Body height 2020-12-12 08:21:00 180.3 cm [facility] Body weight 2020-12-12 08:21:00 103.42 kg [facility] BMI 2020-12-12 08:21:00 31.80 kg/m2 [facility] Systolic blood 2020-12-17 18:35:00 139 mm[Hg] Univer sity of pressure [place] [facility] Diastolic blood 2020-12-17 18:35:00 87 mm[Hg] Unive rsity of pressure [place] [facility] Heart rate 2020-12-17 18:35:00 110 /min [facility]i ty [facility] [place] [facility] Body temperature 2020-12-17 18:35:00 37.72 [place] Univ ersity of [place] [facility] Respiratory rate 2020-12-17 18:35:00 18 /min Univ ersity of [place] [facility] Oxygen saturation in 2020-12-17 18:35:00 93 /min University of Arterial blood by [place] [employer] Pulse oximetry Branch Body height 2020-12-12 08:21:00 180.3 cm [facility] ty [facility] [place] [facility] Body weight 2020-12-12 08:21:00 103.42 kg [facility]i ty [facility] [place] [facility] BMI 2020-12-12 08:21:00 31.80 kg/m2 [facility] [place] [facility] Systolic blood 2020-08-23 19:27:00 140 mm[Hg] Univer sity of pressure [place] [facility] Diastolic blood 2020-08-23 19:27:00 79 mm[Hg] Unive rsity of pressure [place] [facility] Heart rate 2020-08-23 19:27:00 99 /min [facility] [place] [facility] Body temperature 2020-08-23 19:27:00 36 [place] Univ ersity of [place] [facility] Respiratory rate 2020-08-23 19:27:00 18 /min Univ ersity of [place] [facility] Oxygen saturation in 2020-08-23 19:27:00 93 /min University of Arterial blood by [place] [employer] Pulse oximetry Branch Body weight 2020-08-21 07:20:00 104.962 kg [facility]i ty [facility] [place] [facility] BMI 2020-08-21 07:20:00 32.27 kg/m2 [facility] [place] [facility] Systolic blood 2020-08-23 19:27:00 140 mm[Hg] Univer sity of pressure [place] [facility] Diastolic blood 2020-08-23 19:27:00 79 mm[Hg] Unive rsity of pressure [place] [facility] Heart rate 2020-08-23 19:27:00 99 /min [facility] [place] [facility] Body temperature 2020-08-23 19:27:00 36 [facility] Respiratory rate 2020-08-23 19:27:00 18 /min [facility] O[facility] saturation in 2020-08-23 19:27:00 93 /min [facility] Arterial blood by [facility] Pulse oximetry Branch Body weight 2020-08-21 07:20:00 104.962 kg [facility] BMI 2020-08-21 07:20:00 32.27 kg/m2 [facility] Procedures Procedure Date / Time Performing Clinician Source Performed POCT GLUCOSE (AUTOMATED) 2020-12-17 15:42:00 [facility] 2020-12-17 10:45:00 Paul Bean [facility] (NA, K, CL, CO2, GLUCOSE, [place] [facility] Branch BUN, CREATININE, CA) CBC WITH DIFF 2020-12-17 10:45:00 Paul Bean [facility] POCT GLUCOSE (AUTOMATED) 2020-12-17 02:36:00 Harrison[facility] X[facility] TIBIA FIBULA 2 VW LEFT 2020-12-16 23:38:00 Paul Bean [facility] POCT GLUCOSE (AUTOMATED) 2020-12-16 23:20:00 Harrison, [facility] (AUTOMATED) 2020-12-16 20:10:00 Harrison, Premal G Uni versity of [facility] POCT GLUCOSE (AUTOMATED) 2020-12-16 14:43:00 Harrison, Premal G Uni versity [facility] BASIC METABOLIC PANEL 2020-12-16 13:51:00 Paul Bean [facility] (NA, K, CL, CO2, GLUCOSE, [place] [facility] BUN, CREATININE, CA) CBC WITH DIFF 2020-12-16 13:51:00 Paul Bean [facility] POCT GLUCOSE (AUTOMATED) 2020-12-16 04:00:00 Harrison, [facility] (AUTOMATED) 2020-12-16 00:14:00 Harrison, Premal G [facility] CT CHEST PULMONARY 2020-12-15 22:29:38 Paul Bean [facility] ANGIOGRAM [facility] POCT GLUCOSE (AUTOMATED) 2020-12-15 19:26:00 Harrison, Premal G [facility] POCT GLUCOSE (AUTOMATED) 2020-12-15 15:13:00 Hrarison, Premal G [facility] HB ECG ROUTINE & RHYTHM 2020-12-15 14:25:27 Cailin Romo [facility] MAGNESIUM 2020-12-15 12:01:00 Paul Bean [facility] BASIC METABOLIC PANEL 2020-12-15 12:01:00 Paul Bean [facility] (NA, K, CL, CO2, GLUCOSE, [facility] BUN, CREATININE, CA) CBC WITH DIFF 2020-12-15 12:01:00 Paul Bean [facility] POCT GLUCOSE (AUTOMATED) 2020-12-15 03:57:00 Harrison, Premal G [facility] POCT GLUCOSE (AUTOMATED) 2020-12-14 23:31:00 Harrison, Premal G [facility] POCT GLUCOSE (AUTOMATED) 2020-12-14 19:08:00 Harrison, Premal G [facility] POCT GLUCOSE (AUTOMATED) 2020-12-14 15:11:00 Harrison, Premal G [facility] POCT GLUCOSE (AUTOMATED) 2020-12-14 02:36:00 Harrison, Premal G [facility] POCT GLUCOSE (AUTOMATED) 2020-12-13 23:32:00 Harrison, Premal G [facility] POCT GLUCOSE (AUTOMATED) 2020-12-13 18:08:00 Harrison, Premal G [facility] BASIC METABOLIC PANEL 2020-12-13 15:39:00 Paul Bean [facility] (NA, K, CL, CO2, GLUCOSE, [facility] BUN, CREATININE, CA) CBC WITH DIFF 2020-12-13 15:39:00 Paul Bean [facility] POCT GLUCOSE (AUTOMATED) 2020-12-13 14:06:00 Harrison[facility] 2020-12-13 03:07:00 Harrison[facility] ([facility]) 2020-12-12 23:52:00 Harrison[facility] ([facility]ATED) 2020-12-12 20:28:00 Harrison, [facility] ([facility]ATED) 2020-12-12 19:14:00 Harrison, [facility] ([facility]OMATED) 2020-12-12 14:33:00 Harrison, [facility] 2020-12-12 08:58:00 Paul Bean Sivakumar [facility] BASIC METABOLIC PANEL 2020-12-12 08:58:00 Paul Bean [facility] (NA, K, CL, CO2, GLUCOSE, [facility] BUN, CREATININE, CA) CBC WITH DIFF 2020-12-12 08:58:00 Paul Bean Sivakumar [facility] US ABDOMEN LIMITED 2020-12-12 06:32:[address] [facility] POCT GLUCOSE (AUTOMATED) 2020-12-12 03:40:00 Harrison, Premal G Uni [facility] POCT GLUCOSE (AUTOMATED) 2020-12-12 00:06:00 Hunter, Premal Uni [facility] XR HIPS 3 VW LEFT 2020-12-11 20:20:00 Darnell Beanaham Sivakumar [facility] HB ECG ROUTINE & RHYTHM 2020-12-11 20:04:06 Cailin Romo [facility] VITAMIN B6, PLASMA 2020-12-11 19:17:[address] [facility] POCT GLUCOSE (AUTOMATED) 2020-12-11 19:06:00 Rene Harrison [facility] CREATINE KINASE 2020-12-11 18:22:00 Parvez Clarisse [facility] VITAMIN B12, LEVEL 2020-12-11 18:22:[address] [facility] FOLATE 2020-12-11 18:22:00 [facility] THYROID STIMULATING 2020-12-11 18:22:00 Cailin Romo [facility] HORMONE [facility] PROCALCITONIN 2020-12-11 18:22:00 [facility]as [facility] VITAMIN B1 (THIAMINE), 2020-12-11 18:22:00 Paul Bean [facility] WHOLE BLOOD [facility] CT HEAD WO CONTRAST 2020-12-11 14:07:35 Sweetie Stout [facility] URINALYSIS 2020-12-11 13:44:00 Singer [facility] URINE CULTURE 2020-12-11 13:44:00 Singer [facility] COVID-19 (ID NOW RAPID 2020-12-11 12:31:00 Paco [facility] TESTING) [facility] LAB ONLY COVID 2020-12-11 12:31:00 Singer [facility] XR CHEST 1 VW 2020-12-11 12:07:24 Singer [facility] BLOOD CULTURE SCREEN 2020-12-11 12:02:00 Paco Lacey [facility] MAGNESIUM 2020-12-11 12:02:00 Paul Bean [facility] FERRITIN SERUM 2020-12-11 12:02:00 Darnell Beanaham Sivakumar [facility] COMP. METABOLIC PANEL 2020-12-11 12:02:00 Paco [facility] ([id number]) Medical Branch CBC WITH DIFF 2020-12-11 12:02:00 Singer [facility] LACTIC ACID WHOLE BLOOD 2020-12-11 12:02:00 Paco [facility] BLOOD CULTURE SCREEN 2020-12-11 11:42:00 Paco Lacey [facility] EMERGENCY SERVICES 2020-12-11 06:01:00 Doctor Tabitha, [facility] AGREEMENTS AND [place] [facility] AUTHORIZATIONS HOSPITAL ADMISSION 2020-12-11 06:01:00 Doctor Tabitha [facility] Name Medical [place] [facility] - OTHER 2020-11-11 06:01:00 Doctor Tabitha [facility] Name Medical [facility] HEALTH - OTHER 2020-10-30 06:01:00 Doctor Tabitha [facility] Name Medical [place] EXTERNAL PROVIDER RECORDS 2020-09-01 06:01:00 Doctor Tabitha [facility] Name [facility] POCT GLUCOSE (AUTOMATED) 2020-08-23 18:09:00 Kelly Washington [facility] POCT GLUCOSE (AUTOMATED) 2020-08-23 14:14:00 Kelly Washington [facility] MAGNESIUM 2020-08-23 11:18:00 Overgaard [facility] BASIC METABOLIC PANEL 2020-08-23 11:18:00 Overgaard [facility] (NA, K, CL, CO2, GLUCOSE, Medica l Branch BUN, CREATININE, CA) CBC WITH DIFF 2020-08-23 11:18:00 Overgaard [facility] POCT GLUCOSE (AUTOMATED) 2020-08-23 10:21:00 Kelly Washington [facility] POCT GLUCOSE (AUTOMATED) 2020-08-23 05:55:00 Kelly Washington [facility] POCT GLUCOSE (AUTOMATED) 2020-08-23 03:00:00 Kelly Washington [facility] POCT GLUCOSE (AUTOMATED) 2020-08-22 23:38:00 Kelly Washington [facility] POCT GLUCOSE (AUTOMATED) 2020-08-22 19:04:00 Kelly Washington [facility] POCT GLUCOSE (AUTOMATED) 2020-08-22 13:49:00 Kelly Washington Jada [facility] MAGNESIUM 2020-08-22 10:10:00 Overgaard [facility] HEPATIC FUNCTION PANEL 2020-08-22 10:10:00 Aguila Melcohr [facility] ([id number]) (ALB,T.PRO,BILI Medical Branch T,BU/BC,ALT,AST,ALK PHOS) BASIC METABOLIC PANEL 2020-08-22 10:10:00 Overgaard, [facility] (NA, K, CL, CO2, GLUCOSE, Medica l Branch BUN, CREATININE, CA) LIPID PANEL ([id number])(TOTAL 2020-08-22 10:10:00 Overgaard, [facility]LESTEROLU[facility] Health TRIGLYCERIDES, HDL) CBC WITH DIFF 2020-08-22 10:10:00 [facility] POCT GLUCOSE (AUTOMATED) 2020-08-22 10:10:00 Kelly Washington Jada [facility] POCT GLUCOSE (AUTOMATED) 2020-08-22 07:13:00 Kelly Washington [facility] POCT GLUCOSE (AUTOMATED) 2020-08-22 02:24:00 Kelly Washington [facility] POCT GLUCOSE (AUTOMATED) 2020-08-21 23:40:00 Kelly Washington [facility] POCT GLUCOSE (AUTOMATED) 2020-08-21 18:10:00 Kelly Washington [facility] POCT GLUCOSE (AUTOMATED) 2020-08-21 13:39:00 Kelly Washington [facility] ETHANOL 2020-08-21 12:35:00 Jos Quiroz [facility] ACTIVATED PARTIAL 2020-08-21 12:35:00 Padmini Kelly [facility] THRMPLAS [facility] GALV ONLY - SYPHILIS 2020-08-21 12:35:00 Kelly Washington [facility] IGG/IGM [facility] LACTATE DEHYDROGENASE 2020-08-21 10:09:00 Ramya, [facility] GALV/CLC ONLY - URINE 2020-08-21 10:09:00 Jos Quiroz [facility] DRUG (IMMUNOASSAY) - 4 ER Medica l Branch PANEL URINALYSIS 2020-08-21 10:09:00 Ramya, [facility] URINE CULTURE 2020-08-21 10:09:00 Ramya, [facility] PROCALCITONIN 2020-08-21 10:09:00 Overgaard, [facility] POCT GLUCOSE (AUTOMATED) 2020-08-21 09:41:00 Kelly Washington [facility] PROTHROMBIN TIME / INR 2020-08-21 08:32:00 Overgaard, [facility] ACTIVATED PARTIAL 2020-08-21 08:32:00 Overgaard, [facility] PROTEIN 2020-08-21 08:31:00 Overgaard, [facility] HEPATIC FUNCTION PANEL 2020-08-21 08:31:00 Overgaard, [facility] ([id number]) (ALB,T.PRO,BILI Medical Branch T,BU/BC,ALT,AST,ALK PHOS) BASIC METABOLIC PANEL 2020-08-21 08:31:00 Ramya, [facility] (NA, K, CL, CO2, GLUCOSE, Medica l Branch BUN, CREATININE, CA) SEDIMENTATION RATE 2020-08-21 08:31:00 Ramya, [facility] CBC WITH DIFF 2020-08-21 08:31:00 Overgaard, [facility] GLYCOSYLATED HEMOGLOBIN 2020-08-21 08:31:00 Ramya, [facility] (A1C) [facility] HIV 1/2 AG-AB WITH REFLEX 2020-08-21 08:31:00 [facility] (ID NOW RAPID 2020-08-21 08:20:00 Overgaard, [facility] TESTING) Medical Branch LAB ONLY COVID 2020-08-21 08:20:00 Overgaard [facility] o f [facility] Encounters Start End Encounter Admission Attending Care Care Encounter Source Date/Time Date/Time Type Type Clinicians Facility Department ID 2020-08-21 Inpatient Shayy WASHINGTON [facility] [id number] Univers 01:07:00 KELLY cantu [facility] 2021-08-22 2021-08-22 Emergency [facility] [id number] Univers 06:21:00 08:02:00 SWEETIE cantu [facility] 2021-08-22 2021-08-22 [facility] [id number] Univers 06:21:00 08:02:00 Sweetie OREN [id number] i [place] [id number] [facility] 084 Branch 2021-08-09 2021-08-09 Outpatient ZAKI, [facility] [id number] [facility] 10:27:03 10:27:03 ADRIANA lopez of Medicin e 2020-12-28 2020-12-28 Telephone [facility] 1.2.840.114 [id number] 00:00:00 00:00:00 Calvin H PRIMARY [id number] CARE 4.2.7.2.686 PAVILLION [id number] 220 2020-12-28 2020-12-28 Telephone [facility] 1.2.840.114 [id number] Univers 00:00:00 00:00:00 Calvin H PRIMARY [id number] it y [place] [facility] [phone] [place] 220 Branch 2020-12-19 2020-12-19 Transition Tuan Peters 1.2.840.114 [id number] 00:00:00 00:00:00 of Care Ruchi Braswell [id number] [place] 4.2.7.2.686 [id number] 2020-12-19 2020-12-19 Transition Tuan Peters 1.2.840.114 [id number] Univers 00:00:00 00:00:00 of Care Ruchi Braswell [id number] [place] [id number] [facility] 403 Branch 2020-12-11 2020-12-17 [facility] Paco Laceye 1.2.840.1 [id number] 05:11:00 16:00:00 Encounter Rene Harrison Monique [id number] [facility] 4.2.7.2.686 [id number] [facility] 2020-12-11 2020-12-17 [facility] Ayleen 1.2.840.1 [id number] [facility] 05:11:00 16:00:00 Encounter Rene Harrison [place] [id number] ity of [facility] 4.2.7.2.686 [place] [id number] [place] [id number] [place] 2020-12-11 2020-12-11 Emergency [facility] [id number] Univers 05:11:00 05:11:00 [facility] 2020-11-16 2020-11-16 Emergency X [facility] ERT [id number] Univers 09:31:00 09:31:00 [facility] 2020-11-11 2020-11-11 Orders Doctor CUI 1.2.840.114 [id number] 00:00:00 00:00:00 Only Unassigned, MONIQUE 350.1.13.10 [place] [facility] 4.2.7.2.686 [id number] 2020-11-11 2020-11-11 Orders Doctor CUI 1.2.840.114 [id number] Univers 00:00:00 00:00:00 Only Unassigned, MONIQUE 350.1.13.10 ity of [place] [facility] 4.2.7.2.686 Jeff as [id number] [address] 2020-11-07 2020-11-07 Telephone Wilder [facility] [id number] 00:00:00 00:00:00 Angi Tobin 350.1.13.10 [place] 4.2.7.2.686 Professio [id number] [address] 2020-11-07 2020-11-07 Telephone Wilder [facility] [id number] [facility] 00:00:00 00:00:00 Sendsiobhan Tobin 350.1.13.10 ity of [place] [id number] [address] 2020-10-30 2020-10-30 Orders Doctor BASILIA 1.2.840.114 [id number] 00:00:00 00:00:00 Only Unassigned, MONIQUE 350.1.13.10 [place] [facility] 4.2.7.2.686 [id number] [facility] 2020-10-30 2020-10-30 Orders Doctor BASILIA 1.2.840.114 [id number] Univers 00:00:00 00:00:00 Only Unassigned, MONIQUE 350.1.13.10 ity of [place] [facility]OS[facility] 4.2.7.2.686 Jeff as [id number] [address] 2020-09-26 2020-09-26 Telephone [facility] 1.2.840.114 [id number] 00:00:00 00:00:00 [facility] 350.1.13.10 CLINICS 4.2.7.2.686 [id number] [facility] 2020-09-26 2020-09-26 Telephone [facility] 1.2.840.114 [id number] [facility] 00:00:00 00:00:00 [facility] 350.1.13.10 i ty of CL[place] [id number] [address] 2020-09-01 2020-09-01 Orders Doctor CUI 1.2.840.114 [id number] 00:00:00 00:00:00 Only Unassigned, MONIQUE 350.1.13.10 [place] [facility] 4.2.7.2.686 [id number] [facility] 2020-09-01 2020-09-01 Orders Doctor BASILIA 1.2.840.114 [id number] Univers 00:00:00 00:00:00 Only Unassigned, MONIQUE 350.1.13.10 ity of [place] [facility] 4.2.7.2.686 Jeff as [id number] [facility] 009 Branch 2020-08-25 2020-08-25 Transition Tuan Peters 1.2.840.114 [id number] 00:00:00 00:00:00 of Care Ruchi Garciay 350.1.13.10 [place] 4.2.7.2.686 [id number] [facility] 2020-08-25 2020-08-25 Transition Tuan Peters 1.2.840.114 [id number] [facility] 00:00:00 00:00:00 of Care Ruchi Garciay 350.1.13.10 it [place] of [place] [id number] [place] [address] Branch 2020-08-21 2020-08-23 [facility] 1.2.840.114 [id number] 01:07:00 18:35:00 Encounter Kelly Amaya 350.1.13.10 [facility] 4.2.7.2.686 [id number] [facility] 2020-08-21 2020-08-23 [facility] Ayleen 1. 2.840.114 [id number] [facility] 01:07:00 18:35:00 Encounter Mukul Gallardo Mon[place] 350.1.13. 10 ity [facility] 4.2.7.2.686 Jeff as [id number] [address] Results Test Description Test Time Test Comments Results Result Comments Source POCT GLUCOSE (AUTOMATED) 2020-12-17 15:43:35 Test Item Value Reference Range Interpretation Comme nts POCT GLU (test code = 0992856301) 129 mg/dL 70-110 H Lab Interpretation (test code = 92743-8) Abnormal [facility] METABOLIC PANEL (NA, K, CL, CO2, GLUCOSE, BUN, CREATININE, CA)2020-12-17 11:45:07 Test Item Value Reference Range Interpretation Comments NA (test code = 137 mmol/L 135-145 0260510587) K (test code = 3.5 mmol/L 3.5-5.0 3236818496) CL (test code = 103 mmol/L 98-108 7614250132) CO2 TOTAL (test code = 26 mmol/L 23-31 0130874808) AGAP (test code = 2-16 4191849543) BUN (test code = 11 mg/dL 7-23 9728484595) GLUCOSE (test code = 175 mg/dL 70-110 H 6344343908) CREATININE (test code = 0.62 mg/dL 0.60-1.25 5341154878) CALCIUM (test code = 9.0 mg/dL 8.6-10.6 0591157472) eGFR Calculation mL/min/1.73m2 (Non-) (test code = 5761113021) eGFR Calculation mL/min/1.73m2 () (test code = 4929396869) JAMES (test code = JAMES) Association of Glomerular Filtration Rate (GFR) and Staging of Kidney Disease* + --+ --+ ------+| GFR (mL/min/1.73 m2) ?| With Kidney Damage ?| ?Without Kidney Damage+ --------+ --------+ +| ?>90 ?| ?Stage one ?| ? Normal ?+ ---+ ---+ -------+| ?60-89 ?| ?Stage two ?| ? Decreased GFR ? + --+ --+ ------+| ?30-59 ?| ?Stage three ?| ? Stage three ? + --+ --+ ------+| ?15-29 ?| ?Stage four ? | ? Stage four ?+ ---+ ---+ -------+| ?<15 (or dialysis) ? ?| ?Stage five ? | ? Stage five ?+ ---+ ---+ -------+ *Each stage assumes the associated GFR level has been in effect for at least three months. ?Stages 1 to 5, with or without kidney disease, indicate chronic kidney disease. Notes: Determination of stages one and two (with eGFR >59mL/min/1.73 m2) requires estimation of kidney damage for at least three months as defined by structural or functional abnormalities of the kidney, manifested by either:Pathological abnormalities or Markers of kidney damage (including abnormalities in the composition of the blood or urine or abnormalities in imaging tests). Lab Interpretation Abnormal (test code = 06843-4) [facility] WITH [id number] 11:07:27 Test Item Value Reference Range Interpretation Comments WBC (test code = See_Comment H [Automated 6690-2) message] The sy stem which generated this result transmitted reference range : 4.20 - 10.70 10*3/?L. The reference range was not used to interpret this result as normal/abnormal . RBC (test code = See_Comment [Automated 789-8) message] The sy stem which generated this result transmitted reference range : 4.26 - 5.52 10*6/?L. The reference range was not used to interpret this result as normal/abnormal . HGB (test code = 13.3 g/dL 12.2-16.4 718-7) HCT (test code = 41.6 % 38.4-49.3 4544-3) MCV (test code = 76.3 fL 81.7-95.6 L 787-2) MCH (test code = 24.4 pg 26.1-32.7 L 785-6) MCHC (test code = 32.0 g/dL 31.2-35.0 786-4) RDW-SD (test code = 45.2 fL 38.5-51.6 67108-0) RDW-CV (test code = 16.9 % 12.1-15.4 H 788-0) PLT (test code = See_Comment H [Automated 777-3) message] The sy stem which generated this result transmitted reference range : 150 - 328 10*3/ ?L. The reference r torito was not used to interpret this result as normal/abnormal . MPV (test code = 8.1 fL 9.8-13.0 L 93891-8) NRBC/100 WBC (test See_Comment [Automat ed code = 2758114484) message] The system which generated this result transmitted reference range : 0.0 - 10.0 /100 WBCs. The refer ence range was not u sed to interpret th is result as normal/abnormal . NRBC x10^3 (test code <0.01 See_Comment [Auto mated = 5374225626) message] The s ystem which generated this result transmitted reference range : 10*3/?L. The reference range was not used to interpret this result as normal/abnormal . GRAN MAT (NEUT) % 72.8 % (test code = 770-8) IMM GRAN % (test code 0.60 % = 4935895735) LYMPH % (test code = 18.4 % 736-9) MONO % (test code = 5.7 % 5905-5) EOS % (test code = 1.8 % 713-8) BASO % (test code = 0.7 % 706-2) GRAN MAT x10^3(ANC) 8.23 10*3/uL 1.99-6.95 H (test code = 9082768596) IMM GRAN x10^3 (test 0.07 10*3/uL 0.00-0.06 H code = 3601880119) LYMPH x10^3 (test code 2.08 10*3/uL 1.09-3.23 = 731-0) MONO x10^3 (test code 0.65 10*3/uL 0.36-1.02 = 742-7) EOS x10^3 (test code = 0.20 10*3/uL 0.06-0.53 711-2) BASO x10^3 (test code 0.08 10*3/uL 0.01-0.09 = 704-7) Lab Interpretation Abnormal (test code = 07890-9) [facility]17 06:03:38 Test Item Value Reference Range Interpretation Comments POCT GLU (test code = 7376921681) 75 mg/dL 70-110 Lab Interpretation (test code = Normal 56758-6) [facility], [id number] 00:01:00 Test Item Value Reference Range Interpretation Comments VIT B6 (test code = 13.1 nmol/L 20.0-125.0 L INTERPRE TIVE 71611-6) INFORMATION: Vi tamin B6 (Pyridoxal 5-Phosphate) Pyridoxal 5'-phosphate me asured in a specimen collected follo wing an 8-hour or overnight fast accurately clara cates vitamin B6 nutritional sta tus. Non-fasting spe cimen concentration reflects recent vitamin intake. This test was develo ped and its perform ance characteristics determined by [facility]. I t has not been cleare d or approved by the [place] Food and Drug Administration. This test was perfor med in a CLIA certifie d laboratory and is intended for cl inical purposes.Perfor med By: [employer] [place] [address] [id number] Director: Namrata Klein MD Lab Interpretation Abnormal (test code = 23713-5) [facility] TIBIA FIBULA 2 VW [id number] 23:57:09 Tricompartmental knee joint osteoarthrosis.XR TIBIA FIBULA 2 VW LEFT INDICATION: Left lower extremity pain from knee down to ankle COMPARISON: None FINDINGS: Moderate to severe tricompartmental knee joint osteoarthrosis. Diffusemuscle atrophy and osteopenia. No acute fracture or dislocation. [facility], Radiant Results Inft User - 12/16/2020 5:58 PM CSTXR TIBIA FIBULA 2 VW LEFTINDICATION: Left lower extremity pain from knee down to ankle COMPARISON: NoneFINDINGS:Moderate to severe tricompartmental kneejoint osteoarthrosis. Diffusemuscle atrophy and osteopenia. No acute fracture or dislocation.IMPRESSIONTricompartmental knee joint osteoarthrosis.[facility] GLUCOSE (AUTOMATED) 2020-12-16 23:27:00 Test Item Value Reference Range Interpretation Comments POCT GLU (test code = 0732722973) 114 mg/dL 70-110 H Lab Interpretation (test code = Abnormal 15356-5) [facility] GLUCOSE (AUTOMATED)2020-12-16 20:12:00 Test Item Value Reference Range Interpretation Comments POCT GLU (test code = 2725922780) 105 mg/dL 70-110 Lab Interpretation (test code = Normal 48036-8) [facility] GLUCOSE (AUTOMATED)2020-12-16 14:44:00 Test Item Value Reference Range Interpretation Comments POCT GLU (test code = 1816712506) 153 mg/dL 70-110 H Lab Interpretation (test code = Abnormal 97821-3) [facility] METABOLIC [facility] (NA, K, CL, CO2, GLUCOSE, BUN, CREATININE, CA)2020-12-16 14:23:00 Test Item Value Reference Range Interpretation Comments NA (test code = 138 mmol/L 135-145 4709001351) K (test code = 3.4 mmol/L 3.5-5.0 L 1321670303) CL (test code = 100 mmol/L 98-108 1215904603) CO2 TOTAL (test code = 31 mmol/L 23-31 8803083857) AGAP (test code = 2-16 8541661533) BUN (test code = 11 mg/dL 7-23 7124440510) GLUCOSE (test code = 162 mg/dL 70-110 H 7749075414) CREATININE (test code = 0.64 mg/dL 0.60-1.25 0964246087) CALCIUM (test code = 8.9 mg/dL 8.6-10.6 6433227903) eGFR Calculation mL/min/1.73m2 (Non-) (test code = 2865819282) eGFR Calculation mL/min/1.73m2 () (test code = 7796861976) JAMES (test code = JAMES) Association of Glomerular Filtration Rate (GFR) and Staging of Kidney Disease* + --+ --+ ------+| GFR (mL/min/1.73 m2) ?| With Kidney Damage ?| ?Without Kidney Damage+ --------+ --------+ +| ?>90 ?| ?Stage one ?| ? Normal ?+ ---+ ---+ -------+| ?60-89 ?| ?Stage two ?| ? Decreased GFR ? + --+ --+ ------+| ?30-59 ?| ?Stage three ?| ? Stage three ? + --+ --+ ------+| ?15-29 ?| ?Stage four ? | ? Stage four ?+ ---+ ---+ -------+| ?<15 (or dialysis) ? ?| ?Stage five ? | ? Stage five ?+ ---+ ---+ -------+ *Each stage assumes the associated GFR level has been in effect for at least three months. ?Stages 1 to 5, with or without kidney disease, indicate chronic kidney disease. Notes: Determination of stages one and two (with eGFR >59mL/min/1.73 m2) requires estimation of kidney damage for at least three months as defined by structural or functional abnormalities of the kidney, manifested by either:Pathological abnormalities or Markers of kidney damage (including abnormalities in the composition of the blood or urine or abnormalities in imaging tests). Lab Interpretation Abnormal (test code = 47457-2) [facility] [facility] [id number] 14:05:00 Test Item Value Reference Range Interpretation Comments WBC (test code = See_Comment H [Automated 6690-2) message] The sy stem which generated this result transmitted reference range : 4.20 - 10.70 10*3/?L. The reference range was not used to interpret this result as normal/abnormal . RBC (test code = See_Comment [Automated 789-8) message] The sy stem which generated this result transmitted reference range : 4.26 - 5.52 10*6/?L. The reference range was not used to interpret this result as normal/abnormal . HGB (test code = 13.0 g/dL 12.2-16.4 718-7) HCT (test code = 40.8 % 38.4-49.3 4544-3) MCV (test code = 76.4 fL 81.7-95.6 L 787-2) MCH (test code = 24.3 pg 26.1-32.7 L 785-6) MCHC (test code = 31.9 g/dL 31.2-35.0 786-4) RDW-SD (test code = 45.4 fL 38.5-51.6 64080-7) RDW-CV (test code = 17.0 % 12.1-15.4 H 788-0) PLT (test code = See_Comment H [Automated 777-3) message] The sy stem which generated this result transmitted reference range : 150 - 328 10*3/ ?L. The reference r torito was not used to interpret this result as normal/abnormal . MPV (test code = 8.0 fL 9.8-13.0 L 84484-5) NRBC/100 WBC (test See_Comment [Automat ed code = 8193335044) message] The system which generated this result transmitted reference range : 0.0 - 10.0 /100 WBCs. The refer ence range was not u sed to interpret th is result as normal/abnormal . NRBC x10^3 (test code <0.01 See_Comment [Auto mated = 3252556138) message] The s ystem which generated this result transmitted reference range : 10*3/?L. The reference range was not used to interpret this result as normal/abnormal . GRAN MAT (NEUT) % 70.0 % (test code = 770-8) IMM GRAN % (test code 0.70 % = 0869110939) LYMPH % (test code = 20.5 % 736-9) MONO % (test code = 7.1 % 5905-5) EOS % (test code = 1.0 % 713-8) BASO % (test code = 0.7 % 706-2) GRAN MAT x10^3(ANC) 9.44 10*3/uL 1.99-6.95 H (test code = 9170775643) IMM GRAN x10^3 (test 0.09 10*3/uL 0.00-0.06 H code = 3260922146) LYMPH x10^3 (test code 2.76 10*3/uL 1.09-3.23 = 731-0) MONO x10^3 (test code 0.96 10*3/uL 0.36-1.02 = 742-7) EOS x10^3 (test code = 0.13 10*3/uL 0.06-0.53 711-2) BASO x10^3 (test code 0.10 10*3/uL 0.01-0.09 H = 704-7) Lab Interpretation Abnormal (test code = 24281-6) [facility] # [id number] 13:01:00 Test Item Value Reference Range Interpretation Comments Blood Culture-Aerobic No organisms No growth Previo us (test code = 98896-5) isolated prelim inary verified result was Culture In Progress on 12/11/2020 at 100 1 CSTPrevious preliminary verified result was No growth a t 24 hours on 12/12/2020 at 070 1 CSTPrevious preliminary verified result was No growth a t 48 hours on 12/13/2020 at 070 1 CSTPrevious preliminary verified result was No growth a t 72 hours on 12/14/2020 at 070 1 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 Blood No organisms No growth Previous Culture-Anaerobic isolated preliminar y (test code = 74882-5) verifi ed result was Culture In Progress on 12/11/2020 at 100 1 CSTPrevious preliminary verified result was No growth a t 24 hours on 12/12/2020 at 070 1 CSTPrevious preliminary verified result was No growth a t 48 hours on 12/13/2020 at 070 1 CSTPrevious preliminary verified result was No growth a t 72 hours on 12/14/2020 at 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 1 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 Lab Interpretation Normal (test code = 87511-6) [facility] Culture - Peripheral # [id number] 13:01:00 Test Item Value Reference Range Interpretation Comments Blood Culture-Aerobic No organisms No growth Previo us (test code = 47303-0) isolated prelim inary verified result was Culture In Progress on 12/11/2020 at 100 1 CSTPrevious preliminary verified result was No growth a t 24 hours on 12/12/2020 at 070 1 CSTPrevious preliminary verified result was No growth a t 48 hours on 12/13/2020 at 070 1 CSTPrevious preliminary verified result was No growth a t 72 hours on 12/14/2020 at 070 1 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 Blood No organisms No growth Previous Culture-Anaerobic isolated preliminar y (test code = 49107-6) verifi ed result was Culture In Progress on 12/11/2020 at 100 1 CSTPrevious preliminary verified result was No growth a t 24 hours on 12/12/2020 at 070 1 CSTPrevious preliminary verified result was No growth a t 48 hours on 12/13/2020 at 070 1 CSTPrevious preliminary verified result was No growth a t 72 hours on 12/14/2020 at 070 1 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 Lab Interpretation Normal (test code = 21090-6) [facility] GLUCOSE (AUTOMATED)2020-12-16 04:01:00 Test Item Value Reference Range Interpretation Comments POCT GLU (test code = 3232813350) 156 mg/dL 70-110 H Lab Interpretation (test code = Abnormal 81450-6) [facility] GLUCOSE (AUTOMATED)2020-12-16 00:24:00 Test Item Value Reference Range Interpretation Comments POCT GLU (test code = 6386487336) 115 mg/dL 70-110 H Lab Interpretation (test code = Abnormal 73067-5) [facility] [id number] 23:34:55No pulmonary emboli. No interval change in appearance of right hemithorax volume loss, bandshaped scarring with associated bronchiectasis predominantly involvingposterior segment of the right upper lobe and right lower lobe. Left hepatic lobe a trophy, prior cholecystectomy and with a stableappearance of intra and extrahepatic biliary ductal dilatation. CT SCAN OF THE CHEST WITH CONTRAST :16 PM TECHNIQUE: Multidetector helical CT scan of the chest was performedfollowing the intravenousadministration of contrast. Coronal and sagittalreformats as well axial MIPs imaging were acquired. CLINICAL INFORMATION: Sinus tachycardia. PE suspected, intermediate prob,neg D-dimer COMPARISON: Chest CT 11/17/2020 FINDINGS: PULMONARY ARTERIES: The enhancement of the pulmonary artery is adequate. Nopulmonary emboli. A neurostimulator catheter terminates at T7 vertebral body. PULMONARY PARENCHYMA/PLEURA: Unchanged appearance of right hemithorax loss of volume, predominantlyinvolving posterior segment of the right upper lobe and right lower lobewith fibrotic bands predominantly in the right lower lobe and to lesserextent posterior segment of the right upper lobe. Associated tractionbronchiectasis.Scattered fibrotic bands in the left lung and right middlelobe with associated mild bronchiectasis. ?No new consolidation. No pleural effusion. No pneumothorax. LYMPH NODES: No thoracic adenopathy. MED IASTINUM/ LOWER NECK: ?No mediastinal mass is seen mild mucosalthickening of esophagus, nonspecific could be sequela of nondistended lumenor esophagitis.. Heterogeneous thyroid with multiple nodules measuring up to 2.0 cm on theleft. CARDIOVASCULAR: The cardiac size is normal. Mild coronary arterycalcification. No pericardial effusion. The great vessels caliber isnormal. Mild calcified plaque thoracic aorta. UPPER ABDOMEN: Widening of hepatic fissure with a trophy of left hepaticlobe, predominantly segment 4. Absent gallbladder. Stable appearance ofintra and extrahepatic biliary ductal dilatation compared to 08/20/2020. CBDmeasures 1.1 cm. A 3.2 cm exophytic right renal cysts. Atrophic/absence ofpancreatic head and body. BONES/ CHEST WALL: Chronic fracture deformity of right upper ribs.Spondylosis.Bilateral symmetric gynecomastia. [facility], Radiant Results Inft User - 12/15/2020 5:35 PM CSTCT SCAN O F THE CHEST WITH CONTRAST 12/15/2020 4:16 PMTECHNIQUE: Multidetector helical CT scan of the chest was performedfollowing the intravenous administration of contrast. Coronal and sagittalreformats as well axial MIPs imaging were acquired.CLINICAL INFORMATION: Sinus tachycardia. PE suspected, intermediate p rossana,neg D-dimer COMPARISON: Chest CT 11/17/2020FINDINGS: PULMONARY ARTERIES: The enhancement of the pulmonary artery is adequate. Nopulmonary emboli.A neurostimulator catheter terminates at T7 vertebral body.PULMONARY PARENCHYMA/PLEURA: Unchanged appearance of right hemithorax loss of volume, predominantlyinvolving posterior segment of the right upper lobe and right lower lobewith fibrotic bands predominantly in the right lower lobe and to lesserextent posterior segment of the right upper lobe. Associated tractionbronchiectasis. Scattered fibrotic bands in the left lung and right middlelobe with associated mild bronchiectasis. No new consolidation.No pleural effusion. No pneumothorax.LYMPH NODES: No thoracic adenopathy. MEDIASTINUM/ LOWER NECK: No mediastinal mass is seen mild mucosalthickening of esophagus, nonspecific could be sequela of nondistended lumenor esophagitis.. Heterogeneous thyroidwith multiple nodules measuring up to 2.0 cm on theleft.CARDIOVASCULAR: The cardiac size is normal. Mild coronary arterycalcification. No pericardial effusion. The great vessels caliber isnormal. Mild calcified plaque thoracic aorta.UPPER ABDOMEN: Widening of hepatic fissure with a trophy of left hepat iclobe, predominantly segment 4. Absent gallbladder. Stable appearance ofintra and extrahepatic biliary ductal dilatation compared to 08/20/2020. CBDmeasures 1.1 cm. A 3.2 cm exophytic right renal cysts. Atrophic/absence ofpancreatic head and body.BONES/ CHEST WALL: Chronic fracture deformity of right upper ribs.Spondylosis.Bilateral symmetric gynecomastia.IMPRESSIONNo pulmonary emboli. No interval change in appearance of right hemithorax volume loss, bandshaped scarring with associated bronchiectasis predominantly involvingposterior segment of the right upper lobe and right lower lobe. Left hepaticlobe a trophy, prior cholecystectomy and with a stableappearance of intra and extrahepatic biliary du ctal dilatation.[facility] 2020-12-15 19:28:00 Test Item Value Reference Range Interpretation Comments POCT GLU (test code = 8582020356) 140 mg/dL 70-110 H Lab Interpretation (test code = Abnormal 80759-5) [facility] 15:26:00 Test Item Value Reference Range Interpretation Comments MAGNESIUM (test code = 5721071941) 2.2 mg/dL 1.7-2.4 Lab Interpretation (test code = Normal 76661-1) [facility]2020-12-15 15:15:00 Test Item Value Reference Range Interpretation Comments POCT GLU (test code = 0208667802) 181 mg/dL 70-110 H Lab Interpretation (test code = Abnormal 67145-9) [facility] (NA, K, CL, CO2, GLUCOSE, BUN, CREATININE, CA)2020-12-15 13:07:00 Test Item Value Reference Range Interpretation Comments NA (test code = 136 mmol/L 135-145 7520489654) K (test code = 3.6 mmol/L 3.5-5.0 1844100159) CL (test code = 96 mmol/L 98-108 L 1593723894) CO2 TOTAL (test code = 29 mmol/L 23-31 5159150359) AGAP (test code = 2-16 8013543308) BUN (test code = 12 mg/dL 7-23 8016219796) GLUCOSE (test code = 183 mg/dL 70-110 H 8152378176) CREATININE (test code = 0.70 mg/dL 0.60-1.25 2524650882) CALCIUM (test code = 9.2 mg/dL 8.6-10.6 8626655092) eGFR Calculation mL/min/1.73m2 (Non-) (test code = 9350862983) eGFR Calculation mL/min/1.73m2 () (test code = 7022777935) JAMES (test code = JAMES) Association of Glomerular Filtration Rate (GFR) and Staging of Kidney Disease* + --+ --+ ------+| GFR (mL/min/1.73 m2) ?| With Kidney Damage ?| ?Without Kidney Damage+ --------+ --------+ +| ?>90 ?| ?Stage one ?| ? Normal ?+ ---+ ---+ -------+| ?60-89 ?| ?Stage two ?| ? Decreased GFR ? + --+ --+ ------+| ?30-59 ?| ?Stage three ?| ? Stage three ? + --+ --+ ------+| ?15-29 ?| ?Stage four ? | ? Stage four ?+ ---+ ---+ -------+| ?<15 (or dialysis) ? ?| ?Stage five ? | ? Stage five ?+ ---+ ---+ -------+ *Each stage assumes the associated GFR level has been in effect for at least three months. ?Stages 1 to 5, with or without kidney disease, indicate chronic kidney disease. Notes: Determination of stages one and two (with eGFR >59mL/min/1.73 m2) requires estimation of kidney damage for at least three months as defined by structural or functional abnormalities of the kidney, manifested by either:Pathological abnormalities or Markers of kidney damage (including abnormalities in the composition of the blood or urine or abnormalities in imaging tests). Lab Interpretation Abnormal (test code = 72701-2) [facility] WITH [id number] 12:32:00 Test Item Value Reference Range Interpretation Comments WBC (test code = See_Comment H [Automated 3690-2) message] The system which generated this result transmit ronan reference range : 4.20 - 10.70 10*3/?L. The reference range was not used to interpret this result as normal/abnormal . RBC (test code = See_Comment H [Automated 409-8) message] The system which generated this result transmit ronan reference range : 4.26 - 5.52 10*6/?L. The reference range was not used to interpret this result as normal/abnormal . HGB (test code = 14.5 g/dL 12.2-16.4 718-7) HCT (test code = 45.9 % 38.4-49.3 4544-3) MCV (test code = 75.6 fL 81.7-95.6 L 787-2) MCH (test code = 23.9 pg 26.1-32.7 L 785-6) MCHC (test code = 31.6 g/dL 31.2-35.0 786-4) RDW-SD (test code = 44.4 fL 38.5-51.6 00168-3) RDW-CV (test code = 17.7 % 12.1-15.4 H 788-0) PLT (test code = See_Comment H [Automated 777-3) message] The system which generated this result transmit ronan reference range : 150 - 328 10*3/ ?L. The reference range was not u sed to interpret th is result as normal/abnormal . MPV (test code = 8.1 fL 9.8-13.0 L 62780-3) NRBC/100 WBC (test See_Comment [Automat ed code = 5653728745) message] The system which generated this result transmit ronan reference range : 0.0 - 10.0 /100 WBCs. The reference range was not used to interpret this result as normal/abnormal . NRBC x10^3 (test code <0.01 See_Comment [Auto mated = 2887369890) message] The system which generated this result transmit ronan reference range : 10*3/?L. The reference range was not used to interpret this result as normal/abnormal . GRAN MAT (NEUT) % 74.5 % (test code = 770-8) IMM GRAN % (test code 0.70 % = 7648253726) LYMPH % (test code = 17.4 % 736-9) MONO % (test code = 6.8 % 5905-5) EOS % (test code = 0.2 % 713-8) BASO % (test code = 0.4 % 706-2) GRAN MAT x10^3(ANC) 11.99 10*3/uL 1.99-6.95 H (test code = 4304405657) IMM GRAN x10^3 (test 0.11 10*3/uL 0.00-0.06 H code = 2878113111) LYMPH x10^3 (test code 2.80 10*3/uL 1.09-3.23 = 731-0) MONO x10^3 (test code 1.10 10*3/uL 0.36-1.02 H = 742-7) EOS x10^3 (test code = 0.03 10*3/uL 0.06-0.53 L 711-2) BASO x10^3 (test code 0.06 10*3/uL 0.01-0.09 = 704-7) Lab Interpretation Abnormal (test code = 01640-4) [facility] GLUCOSE (AUTOMATED)2020-12-15 04:16:00 Test Item Value Reference Range Interpretation Comments POCT GLU (test code = 8832923671) 200 mg/dL 70-110 H Lab Interpretation (test code = Abnormal 15050-3) [facility]IT[facility] (THIAMINE), WHOLE [id number] 00:30:00 Test Item Value Reference Range Interpretation Comments Vitamin B1, Whole 136 nmol/L 70-180 INTERPRETI VE INFORMATION: Blood (test code = Vitamin B 1, Whole Blood 99126-4) This assay júnior ures the concentration o f thiamine diphosphate (TD P), the primary active form of vitamin B1. Nick roximately 90 percent of v itamin B1 present in whol e blood is TDP. Thiamine a nd thiamine monoph osphate, which comprise the remaining 10 pe rcent, are not measured. T his test was developed a nd its performance characteristics determined by [facility]. I t has not been cleared or approved by the [place] Food and Drug Administration. This test was performed i n a CLIA certified labor atory and is intended for clinical purposes.Perfor med By: DEE [address] [place], [place] [address] aboratory Director: Namrata Klein MD [facility] GLUCOSE (AUTOMATED)2020-12-14 23:35:00 Test Item Value Reference Range Interpretation Comments POCT GLU (test code = 8818469823) 151 mg/dL 70-110 H Lab Interpretation (test code = Abnormal 63743-8) [facility] GLUCOSE (AUTOMATED)2020-12-14 19:19:00 Test Item Value Reference Range Interpretation Comments POCT GLU (test code = 3563954269) 193 mg/dL 70-110 H Lab Interpretation (test code = Abnormal 61607-7) [facility] GLUCOSE (AUTOMATED)2020-12-14 15:22:00 Test Item Value Reference Range Interpretation Comments POCT GLU (test code = 1142485587) 221 mg/dL 70-110 H Lab Interpretation (test code = Abnormal 26961-3) [facility] GLUCOSE (AUTOMATED)2020-12-14 02:37:00 Test Item Value Reference Range Interpretation Comments POCT GLU (test code = 9616262113) 210 mg/dL 70-110 H Lab Interpretation (test code = Abnormal 77852-6) [facility] GLUCOSE (AUTOMATED)2020-12-13 23:33:00 Test Item Value Reference Range Interpretation Comments POCT GLU (test code = 1818213801) 182 mg/dL 70-110 H Lab Interpretation (test code = Abnormal 50600-9) [facility] GLUCOSE (AUTOMATED)2020-12-13 18:09:00 Test Item Value Reference Range Interpretation Comments POCT GLU (test code = 6477305273) 150 mg/dL 70-110 H Lab Interpretation (test code = Abnormal 63181-5) [facility] METABOLIC PANEL (NA, K, CL, CO2, GLUCOSE, BUN, CREATININE, CA)2020-12-13 16:27:00 Test Item Value Reference Range Interpretation Comments NA (test code = 136 mmol/L 135-145 4792781579) K (test code = 3.7 mmol/L 3.5-5.0 8191638463) CL (test code = 96 mmol/L 98-108 L 6133686480) CO2 TOTAL (test code = 29 mmol/L 23-31 1352236130) AGAP (test code = 2-16 6924350680) BUN (test code = 6 mg/dL 7-23 L 7335689427) GLUCOSE (test code = 212 mg/dL 70-110 H 4332622635) CREATININE (test code = 0.61 mg/dL 0.60-1.25 2145605181) CALCIUM (test code = 9.5 mg/dL 8.6-10.6 0511571831) eGFR Calculation mL/min/1.73m2 (Non-) (test code = 1012655891) eGFR Calculation mL/min/1.73m2 () (test code = 7123128639) JAMES (test code = JAMES) Association of Glomerular Filtration Rate (GFR) and Staging of Kidney Disease* + --+ --+ ------+| GFR (mL/min/1.73 m2) ?| With Kidney Damage ?| ?Without Kidney Damage+ --------+ --------+ +| ?>90 ?| ?Stage one ?| ? Normal ?+ ---+ ---+ -------+| ?60-89 ?| ?Stage two ?| ? Decreased GFR ? + --+ --+ ------+| ?30-59 ?| ?Stage three ?| ? Stage three ? + --+ --+ ------+| ?15-29 ?| ?Stage four ? | ? Stage four ?+ ---+ ---+ -------+| ?<15 (or dialysis) ? ?| ?Stage five ? | ? Stage five ?+ ---+ ---+ -------+ *Each stage assumes the associated GFR level has been in effect for at least three months. ?Stages 1 to 5, with or without kidney disease, indicate chronic kidney disease. Notes: Determination of stages one and two (with eGFR >59mL/min/1.73 m2) requires estimation of kidney damage for at least three months as defined by structural or functional abnormalities of the kidney, manifested by either:Pathological abnormalities or Markers of kidney damage (including abnormalities in the composition of the blood or urine or abnormalities in imaging tests). Lab Interpretation Abnormal (test code = 65293-8) [facility] WITH [id number] 16:10:00 Test Item Value Reference Range Interpretation Comments WBC (test code = See_Comment H [Automated 9790-2) message] The sy stem which generated this result transmitted reference range : 4.20 - 10.70 10*3/?L. The reference range was not used to interpret this result as normal/abnormal . RBC (test code = See_Comment H [Automated 799-8) message] The sy stem which generated this result transmitted reference range : 4.26 - 5.52 10*6/?L. The reference range was not used to interpret this result as normal/abnormal . HGB (test code = 13.6 g/dL 12.2-16.4 718-7) HCT (test code = 42.5 % 38.4-49.3 4544-3) MCV (test code = 76.0 fL 81.7-95.6 L 787-2) MCH (test code = 24.3 pg 26.1-32.7 L 785-6) MCHC (test code = 32.0 g/dL 31.2-35.0 786-4) RDW-SD (test code = 43.3 fL 38.5-51.6 26116-1) RDW-CV (test code = 16.2 % 12.1-15.4 H 788-0) PLT (test code = See_Comment H [Automated 777-3) message] The sy stem which generated this result transmitted reference range : 150 - 328 10*3/ ?L. The reference r torito was not used to interpret this result as normal/abnormal . MPV (test code = 8.2 fL 9.8-13.0 L 46292-0) NRBC/100 WBC (test See_Comment [Automat ed code = 5626587424) message] The system which generated this result transmitted reference range : 0.0 - 10.0 /100 WBCs. The refer ence range was not u sed to interpret th is result as normal/abnormal . NRBC x10^3 (test code <0.01 See_Comment [Auto mated = 0564350266) message] The s ystem which generated this result transmitted reference range : 10*3/?L. The reference range was not used to interpret this result as normal/abnormal . GRAN MAT (NEUT) % 86.2 % (test code = 770-8) IMM GRAN % (test code 0.70 % = 8350231114) LYMPH % (test code = 10.2 % 736-9) MONO % (test code = 2.5 % 5905-5) EOS % (test code = 0.1 % 713-8) BASO % (test code = 0.3 % 706-2) GRAN MAT x10^3(ANC) 9.61 10*3/uL 1.99-6.95 H (test code = 4391580747) IMM GRAN x10^3 (test 0.08 10*3/uL 0.00-0.06 H code = 7094103810) LYMPH x10^3 (test code 1.14 10*3/uL 1.09-3.23 = 731-0) MONO x10^3 (test code 0.28 10*3/uL 0.36-1.02 L = 742-7) EOS x10^3 (test code = <0.03 0.06-0.53 L 711-2) BASO x10^3 (test code 0.03 10*3/uL 0.01-0.09 = 704-7) Lab Interpretation Abnormal (test code = 58961-8) [facility] 14:16:00 Test Item Value Reference Range Interpretation Comments POCT GLU (test code = 9520423344) 236 mg/dL 70-110 H Lab Interpretation (test code = Abnormal 15332-8) [facility] COVID [id number] 04:58:00COVID DMT InterpretationInterpretation/Recommendations: Molecular NAAT Tests for Active Infection with the SARS-CoV-2 Virus: The patient has currently tested negative for the SARS-CoV-2 virus that causes COVID-19 illness. This most likely indicates that the patient does not have an active infection with the SARS-CoV-2 virus. However, infection is not completely ruled out as the false negative rate for molecular NAAT testing using a nasopharyngeal sample can be up to 30%, mostly dependent on the timing of sample collection in relation to illness onset and any deficiencies in sampling techniques. If the patient has symptoms concerning for COVID-19 illness, a repeat NAAT test (PCR, Rapid ID Now, etc.) should be performed, at which time the SARS-CoV-2 virus - if present - may have reached a detectable viral load (usually peaking by the end of the first week of symptoms). Tests for IgM and/or IgGAntibodies to the SARS-CoV-2 Virus: If the patient develops COVID-19 illness in the future, testingfor IgM and IgG antibodies approximately 3 weeks after illness onset will likely indicate if the patient has produced antibodies to the SARS-CoV-2 virus. However, some patients may take longer to develop detectable antibodies, while some patients who were infected with SARS-CoV-2 may never develop antibodies. While antibodies to SARS-CoV-2 may provide some degree of immunity, at this time the strength and duration of the antibody response is unknown. Interpretation Result Comments:These interpretation comments are based upon all COVID-19 testing the patient has had at [facility], including molecular NAAT testing (more commonly known as PCR testing and Rapid ID Now testing) and antibody testing. It does not take into account any testing that a patient has had outside of the [facility] medical record. [facility] LABORATORY SERVICESCOVID Resu [id number] Rapid ID NOW (no units) ? ? Date ? Value ? 12/11/2020 ? Not Detected ? ? ? 11/16/2020 ? Not Detected ? ? ? 08/21/2020 ?Not Detected ? [facility] 2020-12-13 03:11:00 Test Item Value Reference Range Interpretation Comments POCT GLU (test code = 1419672766) 171 mg/dL 70-110 H Lab Interpretation (test code = Abnormal 63655-1) [facility] GLUCOSE (AUTOMATED)2020-12-13 00:00:00 Test Item Value Reference Range Interpretation Comments POCT GLU (test code = 5776575983) 118 mg/dL 70-110 H Lab Interpretation (test code = Abnormal 37861-1) [facility] GLUCOSE (AUTOMATED)2020-12-12 20:29:00 Test Item Value Reference Range Interpretation Comments POCT GLU (test code = 3993577268) 173 mg/dL 70-110 H Lab Interpretation (test code = Abnormal 02745-5) [facility] [id number] 19:56:17 1. ?Hepatic steatosis. However, limited evaluation of the liver on theseimages.2. ?CBD is normal and measures 0.5 cm. Preliminary Report Dictated by Resident: Mickey Haro MD.,have reviewed this study and agree with the abovereport.EXAM: US ABDOMEN LIMITED HISTORY: 70 years-old male with RUQ ultrasound to assess for common bileduct dilation . TECHNIQUE: Limited abdominal ultrasound focused on the liver, biliarysystem, pancreas, and spleen was performed. The main portal veinwasevaluated with color Doppler imaging. [facility] images were obtainedfor the record. COMPARISON: Ultrasound abdomen 11/17/2028. And CT chest 11/17/2020. FINDINGS: Exam is limited due to patient's body habitus. PANCREAS: The visualized portions of the pancreas is unremarkable. AORTA:No images wereobtained. LIVER:Length: The liver is normal in size, and measures 15.6 cm in thecraniocaudal dimension.Parenchyma: Echogenic liver parenchyma. No focal lesion is detected.Portal vein: Hepatopetal flowis present in the main portal vein.MPV diameter: measures 0.6 cm in the AP dimension. BILE DUCTS:No intra- or extrahepatic biliary dilatation is visualized.The common bile duct diameter is normal, and measures 0.5 cm. GALLBLADDER:The gallbladder is nonvisualized. IVC:The IVC appears normal where visualized. SPLEEN:No images were obtained. [facility], RadiPosibl. Results Inft User - 12/12/2020 1:57 PM CSTEXAM: US ABDOMEN LIMITEDHISTORY: 70 years-old male with RUQ ultrasound to assess for common bileduct dilation .TECHNIQUE: Limited abdominal ultrasound focused on the liver, biliarysystem, pancreas, and spleen was performed. The main portal vein wasevaluated with color Doppler imaging. [facility] images were obtainedfor the record.COMPARISON: Ultrasound abdomen 11/17/2028. And CT chest 11/17/2020.FINDINGS: Exam is limited due to patient's body habitus.PANCREAS: The visualized portions of the pancreas is unremarkable.AORTA:No images were obtained. LIVER:Length: The liver is normal in size, and measures 15.6 cm in thecraniocaudal dimension.Parenchyma: Echogenic liver parenchyma. No focal lesion is detected.Portal vein: Hepatopetal flow is present in the main portal vein.MPV diameter: measures 0.6 cm inthe AP dimension.BILE DUCTS:No intra- or extrahepatic biliary dilatation is visualized.The common bile duct diameter is normal, and measures 0.5 cm.GALLBLADDER:The gallbladder is nonvisualized. IVC:TheIVC appears normal where visualized. SPLEEN:No images were obtained.IMPRESSION1. Hepatic steatosis. However, limited evaluation of the liver on theseimages.2. CBD is normal and measures 0.5 cm.Preliminary Report Dictated by Resident: Mickey Neal MD., have reviewed this study and agree with the abovereport. [facility]2020-12-12 19:24:00 Test Item Value Reference Range Interpretation Comments POCT GLU (test code = 7361918333) 230 mg/dL 70-110 H Lab Interpretation (test code = Abnormal 73541-7) [facility] CHEST 1 [id number] 15:16:46 Low lung volumes with mild perihilar vascular congestion. No newinfiltrate, pleural effusion, or pneumothorax. Preliminary Report Dictated by Resident: Gabrielle Larry MD., have reviewed this study and agree with theabove report.EXAM: XR CHEST 1 VW 12/11/2020 5:55 AM HISTORY: 70 years-old Male with sepsis COMPARISON: 11/20/2020 TECHNIQUE: AP view of the chest. FINDINGS: Interval removal of the right PICC. Poor inspiratory with decreased lung volumes and resultant pulmonaryvascular congestion. Mild elevation of the right hemidiaphragm isunchanged. No focal airspace opacities are seen in the right lung. Nopleural abnormalities are detected The cardiomediastinal silhouette is mildly enlarged. Calcifications of theaortic knob No acute osseous abnormalities. Severe bilateral glenohumeral jointosteoporosis, partially seen. [facility], Radiant Results Inft User - 12/12/2020 9:17 AM CSTEXAM: XR CHEST 1 VW 12/11/2020 5:55 AMHISTORY: 70 years-old Male with sepsis COMPARISON: 11/20/2020TECHNIQUE: AP view of the chest.FINDINGS:Interval removal of the right PICC.Poor inspiratory with decreased lung volumes and resultant pulmonaryvascular congestion. Mild elevation of the right hemidiaphragm isu nchanged. No focal airspace opacities are seen in the right lung. Nopleural abnormalities are detectedThe cardiomediastinal silhouette is mildly enlarged. Calcifications of theaortic knobNo acute osseous abnormalities. Severe bilateral glenohumeral jointosteoporosis, partially seen.IMPRESSIONLow lung volumes with mild perihilar vascular congestion. No newinfiltrate, pleural effusion, or pneumothorax.Preliminary Report Dictated by Resident: Gabrielle Miller MD., have reviewed thisstudy and agree with theabove report.[facility]2020-12-12 14:34:00 Test Item Value Reference Range Interpretation Comments POCT GLU (test code = 7232387420) 225 mg/dL 70-110 H Lab Interpretation (test code = Abnormal 04389-3) [facility] AustinURINE [id number] 13:28:00 Test Item Value Reference Range Interpretation Comments URINE CULTURE (test < 10,000 CFU/mL mixed code = 630-4) aerobic organisms - suggests endogenous microbial contamination [facility] (NA, K, CL, CO2, GLUCOSE, BUN, CREATININE, CA)2020-12-12 10:05:00 Test Item Value Reference Range Interpretation Comments NA (test code = 136 mmol/L 135-145 5856804659) K (test code = 3.5 mmol/L 3.5-5.0 2050795283) CL (test code = 100 mmol/L 98-108 8657205217) CO2 TOTAL (test code = 31 mmol/L 23-31 0799655231) AGAP (test code = 2-16 6085766206) BUN (test code = 7 mg/dL 7-23 2571235637) GLUCOSE (test code = 259 mg/dL 70-110 H 4456050125) CREATININE (test code = 0.63 mg/dL 0.60-1.25 4294061355) CALCIUM (test code = 8.5 mg/dL 8.6-10.6 L 8847496001) eGFR Calculation mL/min/1.73m2 (Non-) (test code = 8322558038) eGFR Calculation mL/min/1.73m2 () (test code = 1977223882) JAMES (test code = JAMES) Association of Glomerular Filtration Rate (GFR) and Staging of Kidney Disease* + --+ --+ ------+| GFR (mL/min/1.73 m2) ?| With Kidney Damage ?| ?Without Kidney Damage+ --------+ --------+ +| ?>90 ?| ?Stage one ?| ? Normal ?+ ---+ ---+ -------+| ?60-89 ?| ?Stage two ?| ? Decreased GFR ? + --+ --+ ------+| ?30-59 ?| ?Stage three ?| ? Stage three ? + --+ --+ ------+| ?15-29 ?| ?Stage four ? | ? Stage four ?+ ---+ ---+ -------+| ?<15 (or dialysis) ? ?| ?Stage five ? | ? Stage five ?+ ---+ ---+ -------+ *Each stage assumes the associated GFR level has been in effect for at least three months. ?Stages 1 to 5, with or without kidney disease, indicate chronic kidney disease. Notes: Determination of stages one and two (with eGFR >59mL/min/1.73 m2) requires estimation of kidney damage for at least three months as defined by structural or functional abnormalities of the kidney, manifested by either:Pathological abnormalities or Markers of kidney damage (including abnormalities in the composition of the blood or urine or abnormalities in imaging tests). Lab Interpretation Abnormal (test code = 63894-7) [facility] AustinMagnesium [id number] 10:05:00 Test Item Value Reference Range Interpretation Comments MAGNESIUM (test code = 4836452566) 1.9 mg/dL 1.7-2.4 Lab Interpretation (test code = Normal 65639-5) [facility] with [id number] 09:48:00 Test Item Value Reference Range Interpretation Comments WBC (test code = See_Comment [Automated 4690-2) message] The sy stem which generated this result transmitted reference range : 4.20 - 10.70 10*3/?L. The reference range was not used to interpret this result as normal/abnormal . RBC (test code = See_Comment [Automated 188-8) message] The sy stem which generated this result transmitted reference range : 4.26 - 5.52 10*6/?L. The reference range was not used to interpret this result as normal/abnormal . HGB (test code = 10.5 g/dL 12.2-16.4 L 718-7) HCT (test code = 34.6 % 38.4-49.3 L 4544-3) MCV (test code = 79.2 fL 81.7-95.6 L 787-2) MCH (test code = 24.0 pg 26.1-32.7 L 785-6) MCHC (test code = 30.3 g/dL 31.2-35.0 L 786-4) RDW-SD (test code = 46.0 fL 38.5-51.6 04984-0) RDW-CV (test code = 16.1 % 12.1-15.4 H 788-0) PLT (test code = See_Comment H [Automated 777-3) message] The sy stem which generated this result transmitted reference range : 150 - 328 10*3/ ?L. The reference r torito was not used to interpret this result as normal/abnormal . MPV (test code = 8.6 fL 9.8-13.0 L 35292-7) NRBC/100 WBC (test See_Comment [Automat ed code = 7798189455) message] The system which generated this result transmitted reference range : 0.0 - 10.0 /100 WBCs. The refer ence range was not u sed to interpret th is result as normal/abnormal . NRBC x10^3 (test code <0.01 See_Comment [Auto mated = 8224116759) message] The s ystem which generated this result transmitted reference range : 10*3/?L. The reference range was not used to interpret this result as normal/abnormal . GRAN MAT (NEUT) % 70.2 % (test code = 770-8) IMM GRAN % (test code 0.30 % = 4702855129) LYMPH % (test code = 18.8 % 736-9) MONO % (test code = 5.0 % 5905-5) EOS % (test code = 5.2 % 713-8) BASO % (test code = 0.5 % 706-2) GRAN MAT x10^3(ANC) 6.05 10*3/uL 1.99-6.95 (test code = 5824236237) IMM GRAN x10^3 (test 0.03 10*3/uL 0.00-0.06 code = 2089390128) LYMPH x10^3 (test code 1.62 10*3/uL 1.09-3.23 = 731-0) MONO x10^3 (test code 0.43 10*3/uL 0.36-1.02 = 742-7) EOS x10^3 (test code = 0.45 10*3/uL 0.06-0.53 711-2) BASO x10^3 (test code 0.04 10*3/uL 0.01-0.09 = 704-7) Lab Interpretation Abnormal (test code = 15486-9) [facility] GLUCOSE (AUTOMATED)2020-12-12 03:42:00 Test Item Value Reference Range Interpretation Comments POCT GLU (test code = 196 mg/dL 70-110 H Notifi ed Provider [id number]) Lab Interpretation (test Abnormal code = 77065-6) [facility] Austin[facility]OL[facility]2021-[facility]-02 02:24:00 Test Item Value Reference Range Interpretation Comments FOLATE SER (test code = 2009558807) 5.8 ng/mL 3.0-20.0 Lab Interpretation (test code = Normal 60027-4) [facility] AustinVITAMIN B12, [id number] 00:55:00 Test Item Value Reference Range Interpretation Comments VIT B12 (test code = 844 pg/mL 240-930 0123661843) JAMES (test code = JAMES) Biotin has been reported to cause a positive bias, interpret results relative to patient's use of biotin. Lab Interpretation (test Normal code = 65254-2) [facility] GLUCOSE (AUTOMATED)2020-12-12 00:14:00 Test Item Value Reference Range Interpretation Comments POCT GLU (test code = 1337630360) 164 mg/dL 70-110 H Lab Interpretation (test code = Abnormal 66325-7) [facility] AustinCREATINE [id number] 23:42:00 Test Item Value Reference Range Interpretation Comments CK (test code = 0793699987) <20 33-194 L Lab Interpretation (test code = Abnormal 16558-3) [facility] AustinTHYROID STIMULATING [id number] 23:17:00 Test Item Value Reference Range Interpretation Comments TSH (test code = See_Comment Biotin has been 1578343289) reported to cau se a negative bias, interpret resul ts relative to pat ient's use of biotin. [Automated mess age] The system [employer] generated this result transmitted ref erence range: 0.45 - 4 .70 mIU/L. The refe rence range was not u sed to interpret this result as normal/abnor mal. Lab Interpretation (test Normal code = 14689-9) [facility] H[facility] 3 VW [id number] 21:41:53No appreciable fracture lines. RL: 6200 ICAL HISTORY:Pain. COMPARISON:none TECHNIQUE:XR HIPS 3 VW LEFT performed. Technical Quality: Adequate FINDINGS:There are no appreciable fracture lines or subluxations. ?There is grossanatomic alignment. ?No appreciable joint effusion. Moderate to severe hip joint space narrowing, with arthropathy. Marginalosteophytes and subchondral sclerosis. No osseous erosions. [facility], Radiant Results Inft User -12/11/2020 3:43 PM CSTCLINICAL HISTORY:Pain.COMPARISON:noneTECHNIQUE:XR HIPS 3 VW LEFT performed. Technical Quality: AdequateFINDINGS:There are no appreciable fracture lines or subluxations. There isgrossanatomic alignment. No appreciable joint effusion.Moderate to severe hip joint space narrowing, with arthropathy. Marginalosteophytes and subchondral sclerosis. No osseous erosions.IMPRESSIONNo appreciable fracture lines.RL: 6200 [facility] CenterPROCALCITONIN2021-[facility]-01 20:00:00 Test Item Value Reference Range Interpretation Comments Procalcitonin (test 0.13 ng/mL <0.07 H code = 8447720001) JAMES (test code = JAMES) INTERPRETATION OF PROCALCITONIN RESULTS IN ADULTS >= 18 YEARS OF AGE Initiation and discontinuation of antibiotics on patients with suspected or confirmed Lower Respiratory Tract Infection in Adults >= 18 years of age. + +-------- --------+ + -----+|Procalcitonin |Interpretation ?|Antibiotic ? ? |Considerations ? |ng/mL ? | ?|recommendation | ? + +-------- --------+ + -----+| <0.1 ? | Bacterial ? ? ?| Strongly ? ? ?| ? | ?| infection very | discouraged ? | Overruling: ? | ?| unlikely ? ? ? | ? | ? Clinically unstable ? ? ? + +-------- --------+ + ? High risk for adverse ? ? | <0.25 ?| Bacterial ? ? ?| Discouraged ? | ? outcome ? | ?| infection ? ? ?| ? | ? SEE IMPORTANT NOTE ?| ?| unlikely ? ? ? | ? | ? + +-------- --------+ + -----+| >=0.25 ? ? ? | Bacterial ? ? ?| Encouraged ? ?| ? | ?| infection ? ? ?| ? | ? | ?| likely ? | ? | Consider treatment failure ?+ +------- ---------+ -+ if levels does not decrease | >0.5 ? | Bacterial ? ? ?| Strongly ? ? ?| appropriately ? | ?| infection very | encouraged ? ?| ? | ?| likely ? | ? | ? + +-------- --------+ + -----+ Discontinuation of antibiotics in high-acuity patients with suspected or confirmed sepsis in Adults >= 18 years of age. + +-------- --------+ + -----+|Procalcitonin |Interpretation ?|Antibiotic ? ? |Considerations ? |ng/mL ? | ?|recommendation | ? + +-------- --------+ + -----+| <0.25 ?| Bacterial ? ? ?| Strongly ? ? ?| ? | ?| infection very | discouraged ? | Overruling: ? | ?| unlikely ? ? ? | ? | ? Clinically unstable ? ? ? + +-------- --------+ + ? High risk for adverse ? ? | <0.5 or drop | Bacterial ? ? ?| Discouraged ? | ? outcome ? | >80% from ? ?| infection ? ? ?| ? | ? SEE IMPORTANT NOTE ?| highest PCT ?| unlikely ? ? ? | ? | ? | level ?| ?| ? | ? + +-------- --------+ + -----+| >=0.5 ?| Bacterial ? ? ?| Encouraged ? ?| ? | ?| infection ? ? ?| ? | ? | ?| likely ? | ? | Consider treatment failure ?+ +------- ---------+ -+ if levels does not decrease | >1.0 ? | Bacterial ? ? ?| Strongly ? ? ?| appropriately ? | ?| infection very | encouraged ? ?| ? | ?| likely ? | ? | ? + +-------- --------+ + -----+ Percentage of drop of Procalcitonin calculation for Discontinuation of antibiotics in high-acuity patients with suspected or confirmed sepsis in Adults >= 18 years of age. ? Procalcitonin highest{}-Procalcitonin current{}Delta Procalcitonin = x100% ? Procalcitonin current {} IMPORTANT NOTE: Procalcitonin may be elevated without bacterial infection by physiologic stress related to trauma, hodge, chronic dialysis, metastatic cancer, surgery in the past seven days, malaria, some fungal infections, and some forms of vasculitis. The interpretation algorithm may not apply to patients with immunosuppression (equivalent of >10 mg of prednisone daily), HIV with CD4 cell count < 350 cells/mm3, active malignancy on systemic chemotherapy, solid organ transplant or hematopoietic stem cell transplantation, or hospital acquired pneumonia. Additionally, some clinical trials of procalcitonin have excluded patients with shock requiring vasopressor use, acute respiratory failure requiring mechanical ventilation, or those with known lung abscess/empyema. For further information please refer to:[email or web address] Lab Interpretation Abnormal (test code = 95023-9) [facility]2020-12-11 19:07:00 Test Item Value Reference Range Interpretation Comments POCT GLU (test code = 9893377908) 274 mg/dL 70-110 H Lab Interpretation (test code = Abnormal 40207-3) [facility] AustinMAGNESIUM2021-03-01 18:31:00 Test Item Value Reference Range Interpretation Comments MAGNESIUM (test code = 6795171158) 1.9 mg/dL 1.7-2.4 Lab Interpretation (test code = Normal 51224-1) [facility] AustinFERRITIN [id number] 18:31:00 Test Item Value Reference Range Interpretation Comments FERRITIN (test code = 178.0 ng/mL 18.0-464.0 7228460818) JAMES (test code = JAMES) Biotin has been reported to cause a negative bias, interpret results relative to patient's use of biotin. Lab Interpretation (test Normal code = 28641-0) [facility] AustinCT HEAD WO [id number] 14:36:47 No acute intracranial abnormality. Dilated ventricles out of proportion to the caliber of sulci with diffuseproportional enlargement of the subarachnoid spaces, nonspecific findingmay represent central predominant volume loss, however, normal pressurehydrocephalus can potentially have similar appearance in the appropriateclinical setting. Preliminary Report Dictated by Resident: Roxane Wilson I, Katelyn Martin MD., have reviewed this study and agree with the abovereport.CT HEAD WO CONTRAST HISTORY: Motor neuron disease COMPARISON: None TECHNIQUE: Contiguous axial CT images of the head were obtained without theuse of intravenous contrast. Coronal and sagittal reformats were provided. FINDINGS: The ventricles are dilated out of proportion to the caliber of sulciassociated with narrow callosal angle and effacement of the sulci at thevertex. No hydrocephalus, midline shift or pathological extra-axial fluidcollection is present. The basal cisterns are unremarkable. There is no acute intracranial hemorrhage or significant mass effect. Anapproximately 2 mm focus of mineralization is notedin the left hemipons,nonspecific (11:17). The barger-white matter differentiation is preserved. Chronic dehiscence of left lamina papyracea noted. The mastoid air cellsand paranasal air sinuses are clear. The calvarium and central skull baseare unremarkable. [facility], Radiant Results Inft User - 12/11/2020 8:37 AM CSTCT HEAD WO CONTRASTHISTORY: Motor neuron disease COMPARISON: NoneTECHNIQUE: Contiguous axial CT images of the head were obtained without theuse of intravenous contrast. Coronal and sagittal reformats were provided.FINDINGS:The ventricles are dilated out of proportion to the caliber of sulciassociated with narrow callosal angle and effacement of the sulci at thevertex. No hydrocephalus, midline shift or pathological extra-axial fluidcollection is present. The basal cisterns are unremarkable.There is no acute intracranial hemorrhage or significant mass effect. Anapproximately 2 mm focus of mineralization is noted in the left hemipons,nonspecific (11:17). The barger-white matter differentiation is preserved.Chronic dehiscence of left lamina papyracea noted. The mastoid air cellsand paranasal air sinuses are clear. The calvarium and central skull baseare unremarkable.IMPRESSIONNo acute intracranial abnormality.Dilated ventricles out of proportion to the caliber of sulci with diffuseproportional enlargement of the subarachnoid spaces, nonspecific findingmay represent central predominant volume loss, however, normal pressurehydrocephalus can potentially have similar appearance in the appro priateclinical setting.Preliminary Report Dictated by Resident: Roxane Jiang, Katelyn Martin MD., have reviewed this study and agree with the abovereport.[facility] AustinURINALYSIS2021-03-01 14:28:00 Test Item Value Reference Range Interpretation Comments APPEARANCE (test code = Clear Clear 4521291904) COLOR (test code = Yellow Yellow 1658170709) PH (test code = 4.8-8.0 5098551795) SP GRAVITY (test code = 1.003-1.030 9140816368) GLU U QUAL (test code = 500 mg/dL Normal A 0629601100) BLOOD (test code = Negative Negative 3816190053) KETONES (test code = 5 mg/dL Negative A 9980714156) PROTEIN (test code = Negative Negative 2887-8) UROBILIN (test code = Normal Normal 4249055451) BILIRUBIN (test code = Negative Negative 9324585763) NITRITE (test code = Negative Negative 3540171839) LEUK RYAN (test code = Negative Negative 7179671033) RBC/HPF (test code = See_Comment [Autom ated message] 5191661635) The system [employer] generated this result transmit ronan reference range : 0 - 3 HPF. The refe rence range was not u sed to interpret th is result as normal/abnormal . WBC/HPF (test code = See_Comment [Autom ated message] 4383121676) The system [employer] generated this result transmit ronan reference range : 0 - 5 HPF. The refe rence range was not u sed to interpret th is result as normal/abnormal . BACTERIA (test code = Negative Negative 2125118364) MUCOUS (test code = Slight Negative LPF A 0813787869) SQ EPITH (test code = HPF 4255375125) Lab Interpretation (test Abnormal code = 91465-0) [facility] AustinCOVID-[facility] (ID NOW RAPID TESTING)2020-12-11 13:10:00 Test Item Value Reference Range Interpretation Comments SARS-CoV-2 Rapid ID NOW Not Detected Not Detected (test code = 39403-6) JAMES (test code = JAMES) ID NOW COVID-19 Assay is an isothermal nucleic acid amplification test intended for the qualitative detection of nucleic acid from SARS-CoV-2 viral RNA in nasopharyngeal (ENDOCRINOLOGY SPECIALIST) specimens. It is used under Emergency Use Authorization (EUA) by FDA. The limit of detection (LOD) of the assay is 125 Genome Equivalents/mL. A positive result is indicative of the presence of SARS-CoV-2 RNA. ?Clinical correlation with patient history and other diagnostic information is necessary to determine patient infection status. A negative (Not Detected) result does not preclude SARS-CoV-2 infection. In patients with clinical symptoms and other tests that are consistent with SARS-CoV-2 infection, negative results should be treated as presumptive negative and a new specimen should be tested with alternative PCR molecular test. Invalid: Please collect a new specimen for repeat patient testing if clinically indicated. Lab Interpretation Normal (test code = 85987-6) [facility]. METABOLIC PANEL (48180)2020-12-11 12:29:00 Test Item Value Reference Range Interpretation Comments NA (test code = 136 mmol/L 135-145 5026318992) K (test code = 3.5 mmol/L 3.5-5.0 1119116150) CL (test code = 95 mmol/L 98-108 L 1771980807) CO2 TOTAL (test code = 35 mmol/L 23-31 H 1733852605) AGAP (test code = 2-16 2763088146) BUN (test code = 9 mg/dL 7-23 2710477772) GLUCOSE (test code = 329 mg/dL 70-110 H 3529937001) CREATININE (test code = 0.72 mg/dL 0.60-1.25 8807156931) TOTAL BILI (test code = 0.6 mg/dL 0.1-1.4 6522264550) CALCIUM (test code = 9.0 mg/dL 8.6-10.6 9834596132) T PROTEIN (test code = 6.8 g/dL 6.3-8.2 1308649132) ALBUMIN (test code = 3.8 g/dL 3.5-5.0 3243238561) ALK PHOS (test code = 288 U/L 34-122 H 0928239175) ALTv (test code = 46 U/L 5-50 2-6) AST(SGOT) (test code = 38 U/L 13-40 7031260703) eGFR Calculation mL/min/1.73m2 (Non-) (test code = 7028051449) eGFR Calculation mL/min/1.73m2 () (test code = 6930339526) JAMES (test code = JAMES) Association of Glomerular Filtration Rate (GFR) and Staging of Kidney Disease* + --+ --+ ------+| GFR (mL/min/1.73 m2) ?| With Kidney Damage ?| ?Without Kidney Damage+ --------+ --------+ +| ?>90 ?| ?Stage one ?| ? Normal ?+ ---+ ---+ -------+| ?60-89 ?| ?Stage two ?| ? Decreased GFR ? + --+ --+ ------+| ?30-59 ?| ?Stage three ?| ? Stage three ? + --+ --+ ------+| ?15-29 ?| ?Stage four ? | ? Stage four ?+ ---+ ---+ -------+| ?<15 (or dialysis) ? ?| ?Stage five ? | ? Stage five ?+ ---+ ---+ -------+ *Each stage assumes the associated GFR level has been in effect for at least three months. ?Stages 1 to 5, with or without kidney disease, indicate chronic kidney disease. Notes: Determination of stages one and two (with eGFR >59mL/min/1.73 m2) requires estimation of kidney damage for at least three months as defined by structural or functional abnormalities of the kidney, manifested by either:Pathological abnormalities or Markers of kidney damage (including abnormalities in the composition of the blood or urine or abnormalities in imaging tests). Lab Interpretation Abnormal (test code = 76210-8) [facility] Austin[facility] Whole [id number] 12:23:00 Test Item Value Reference Range Interpretation Comments LACTIC ACID (test code = 2.09 mmol/L 0.50-2.20 0250396007) Lab Interpretation (test code = Normal 52729-6) [facility] WITH [id number] 12:17:00 Test Item Value Reference Range Interpretation Comments WBC (test code = See_Comment H [Automated 3790-2) message] The sy stem which generated this result transmitted reference range : 4.20 - 10.70 10*3/?L. The reference range was not used to interpret this result as normal/abnormal . RBC (test code = See_Comment [Automated 789-8) message] The sy stem which generated this result transmitted reference range : 4.26 - 5.52 10*6/?L. The reference range was not used to interpret this result as normal/abnormal . HGB (test code = 12.8 g/dL 12.2-16.4 718-7) HCT (test code = 40.1 % 38.4-49.3 4544-3) MCV (test code = 78.5 fL 81.7-95.6 L 787-2) MCH (test code = 25.0 pg 26.1-32.7 L 785-6) MCHC (test code = 31.9 g/dL 31.2-35.0 786-4) RDW-SD (test code = 44.9 fL 38.5-51.6 69468-3) RDW-CV (test code = 15.9 % 12.1-15.4 H 788-0) PLT (test code = See_Comment H [Automated 777-3) message] The sy stem which generated this result transmitted reference range : 150 - 328 10*3/ ?L. The reference r torito was not used to interpret this result as normal/abnormal . MPV (test code = 8.3 fL 9.8-13.0 L 84774-6) NRBC/100 WBC (test See_Comment [Automat ed code = 1183480610) message] The system which generated this result transmitted reference range : 0.0 - 10.0 /100 WBCs. The refer ence range was not u sed to interpret th is result as normal/abnormal . NRBC x10^3 (test code <0.01 See_Comment [Auto mated = 6658404303) message] The s ystem which generated this result transmitted reference range : 10*3/?L. The reference range was not used to interpret this result as normal/abnormal . GRAN MAT (NEUT) % 77.9 % (test code = 770-8) IMM GRAN % (test code 0.50 % = 3141035778) LYMPH % (test code = 12.2 % 736-9) MONO % (test code = 5.2 % 5905-5) EOS % (test code = 3.7 % 713-8) BASO % (test code = 0.5 % 706-2) GRAN MAT x10^3(ANC) 9.57 10*3/uL 1.99-6.95 H (test code = 8854048616) IMM GRAN x10^3 (test 0.06 10*3/uL 0.00-0.06 code = 5813953322) LYMPH x10^3 (test code 1.50 10*3/uL 1.09-3.23 = 731-0) MONO x10^3 (test code 0.64 10*3/uL 0.36-1.02 = 742-7) EOS x10^3 (test code = 0.46 10*3/uL 0.06-0.53 711-2) BASO x10^3 (test code 0.06 10*3/uL 0.01-0.09 = 704-7) Lab Interpretation Abnormal (test code = 87311-0) [facility] ONLY COVID [id number] 18:43:00COVID DMT InterpretationInterpretation/Recommendations: Molecular NAAT Test Results for Active Infection by SARS-CoV-2 Virus: This result indicates that the patient has tested negative on one occasion for the SARS-CoV-2 virus that causes COVID-19 illness. The most likely interpretation for approximately two-thirds of patients with a negative test is that the patient is truly negative and has not beeninfected with the SARS-CoV-2 virus. However, for those tested using a nasopharyngeal sample, there is approximately a rjw-wv-qnaaa chance that the patient was infected and the result of the first test is a "false" negative. This occurs because the virus is predominantly in the lung and out of reach ofthe nasopharyngeal swab. If the patient continues to have persistent or worsening symptoms, a repeatNAAT test (PCR, Rapid ID Now, etc.) should be performed. Tests for IgM and/or IgG Antibodies to SARS-CoV-2 Virus: Testing for IgM and IgG antibodies 1-3 weeks after illness onset will indicate whetherthe patient has produced antibodies to the virus. At this time, it is not known if the production ofantibodies indicates whether the patient is immune to future infections with the SARS-CoV-2 virus. -- Interpretation Result Comments:These interpretation comments are based upon aggregate data pooled from the [facility] medical record including both current and prior COVID-19 related testing results for the following tests offered at our institution:A. Tests for the Identification of SARS-CoV-2 RNA:SARS-CoV-2 PCR assays including [place] Aptima, [place] Fusion, Barrett RealTime, and Molecular Detection Xpert Xpress. SARS-CoV-2 Rapid ID NOW by the ID NOW assay. ? B. Tests for the Identification of SARS-CoV-2 Antibodies: Chemiluminescent immunoassays including Access SARS-CoV-2 IgM (DXI 600), iExploreS Rirw-FCXE-JcW-2 IgG (Vitros 5600 and Vitros 3600), and Barrett SARS-CoV-2 IgG (SOW MANAGER I System). These interpretation comments assume that only the above testing was utilized and that the approved acceptable specimen type(s) were used for a given test. These interpretations are autopopulated into mobintent based on computerized algorithms matching an interpretation code number to the patient's set of test results. While a clinical pathologist evaluates the combinations for clinical accuracy, clinical correlation is recommended as it may not take into account very remote prior testing. Furthermore, it does not consider testing a patient may have had outside of the [facility] system. Additionally, it should be noted that the computerized algorithm treats the results for PCR testing and Rapid ID NOW testing (also PCR) synonymously, and thus, refers to both testing methodologies as PCR tests. Given that the sensitivity of [facility]'s Rapid ID NOW testingplatform is analogous to PCR-based methods, for most patients this has no significant implications for clinical decision making. However, if a patient with a negative result for Rapid ID NOW continues to have a clinical presentation consistent with COVID-19 infection, negative results should be treated as presumptive negative and a new specimen should be tested with alternative PCR molecular test. If results for COVID-19 infection continue to be negative in the context of a clinical presentation consistent with a viral respiratory illness, it is possible the patient may have an infection with another respiratory virus, such as influenza, rhinovirus, other coronaviruses that cause the common cold,etc. Influenza testing and if clinically indicated a respiratory pathogen panel may be beneficial in this setting. [facility] LABORATORY SERVICESCOVID WujjnwwXPXS-WnI-9 Rapid ID NOW (no units) ? ? Date ? Value ? 08/21/2020 ? Not Detected ? [facility]2020-08-23 18:25:00 Test Item Value Reference Range Interpretation Comments POCT GLU (test code = 7537146453) 297 mg/dL 70-110 H Lab Interpretation (test code = Abnormal 53395-3) [facility] GLUCOSE (AUTOMATED)2020-08-23 14:25:00 Test Item Value Reference Range Interpretation Comments POCT GLU (test code = 6277521953) 181 mg/dL 70-110 H Lab Interpretation (test code = Abnormal 22999-1) [facility] (NA, K, CL, CO2, GLUCOSE, BUN, CREATININE, CA)2020-08-23 11:45:00 Test Item Value Reference Range Interpretation Comments NA (test code = 132 mmol/L 135-145 L 8531047733) K (test code = 4.0 mmol/L 3.5-5 2804464913) CL (test code = 96 mmol/L 98-108 L 5546619161) CO2 TOTAL (test code = 33 mmol/L 23-31 H 8002749011) AGAP (test code = 2-16 7151876089) BUN (test code = 9 mg/dL 7-23 9728424093) GLUCOSE (test code = 176 mg/dL 70-110 H 5280627342) CREATININE (test code = 0.66 mg/dL 0.6-1.25 2584286792) CALCIUM (test code = 8.5 mg/dL 8.6-10.6 L 1523129635) eGFR Calculation mL/min/1.73m2 (Non-) (test code = 2190614410) eGFR Calculation mL/min/1.73m2 () (test code = 7235019874) JAMES (test code = JAMES) Association of Glomerular Filtration Rate (GFR) and Staging of Kidney Disease* + --+ --+ ------+| GFR (mL/min/1.73 m2) ?| With Kidney Damage ?| ?Without Kidney Damage+ --------+ --------+ +| ?>90 ?| ?Stage one ?| ? Normal ?+ ---+ ---+ -------+| ?60-89 ?| ?Stage two ?| ? Decreased GFR ? + --+ --+ ------+| ?30-59 ?| ?Stage three ?| ? Stage three ? + --+ --+ ------+| ?15-29 ?| ?Stage four ? | ? Stage four ?+ ---+ ---+ -------+| ?<15 (or dialysis) ? ?| ?Stage five ? | ? Stage five ?+ ---+ ---+ -------+ *Each stage assumes the associated GFR level has been in effect for at least three months. ?Stages 1 to 5, with or without kidney disease, indicate chronic kidney disease. Notes: Determination of stages one and two (with eGFR >59mL/min/1.73 m2) requires estimation of kidney damage for at least three months as defined by structural or functional abnormalities of the kidney, manifested by either:Pathological abnormalities or Markers of kidney damage (including abnormalities in the composition of the blood or urine or abnormalities in imaging tests). Lab Interpretation Abnormal (test code = 54045-1) [facility] AustinMagnesium [id number] 11:45:00 Test Item Value Reference Range Interpretation Comments MAGNESIUM (test code = 0970502778) 2.0 mg/dL 1.7-2.4 Lab Interpretation (test code = Normal 38950-4) [facility] AustinCB with [id number] 11:38:00 Test Item Value Reference Range Interpretation Comments WBC (test code = See_Comment [Automated 6690-2) message] The sy stem which generated this result transmitted reference range : 4.20 - 10.70 10*3/?L. The reference range was not used to interpret this result as normal/abnormal . RBC (test code = See_Comment [Automated 789-8) message] The sy stem which generated this result transmitted reference range : 4.26 - 5.52 10*6/?L. The reference range was not used to interpret this result as normal/abnormal . HGB (test code = 10.8 g/dL 12.2-16.4 L 718-7) HCT (test code = 34.4 % 38.4-49.3 L 4544-3) MCV (test code = 80.4 fL 81.7-95.6 L 787-2) MCH (test code = 25.2 pg 26.1-32.7 L 785-6) MCHC (test code = 31.4 g/dL 31.2-35 786-4) RDW-SD (test code = 41.8 fL 38.5-51.6 15866-4) RDW-CV (test code = 14.3 % 12.1-15.4 788-0) PLT (test code = See_Comment H [Automated 777-3) message] The sy stem which generated this result transmitted reference range : 150 - 328 10*3/ ?L. The reference r torito was not used to interpret this result as normal/abnormal . MPV (test code = 8.0 fL 9.8-13 L 23922-5) NRBC/100 WBC (test See_Comment [Automat ed code = 2330727194) message] The system which generated this result transmitted reference range : 0.0 - 10.0 /100 WBCs. The refer ence range was not u sed to interpret th is result as normal/abnormal . NRBC x10^3 (test code <0.01 See_Comment [Auto mated = 4220288483) message] The s ystem which generated this result transmitted reference range : 10*3/?L. The reference range was not used to interpret this result as normal/abnormal . GRAN MAT (NEUT) % 61.5 % (test code = 770-8) IMM GRAN % (test code 2.00 % = 2793729341) LYMPH % (test code = 25.5 % 736-9) MONO % (test code = 6.3 % 5905-5) EOS % (test code = 3.7 % 713-8) BASO % (test code = 1.0 % 706-2) GRAN MAT x10^3(ANC) 5.29 10*3/uL 1.99-6.95 (test code = 5516465073) IMM GRAN x10^3 (test 0.17 10*3/uL 0-0.06 H code = 8850913985) LYMPH x10^3 (test code 2.19 10*3/uL 1.09-3.23 = 731-0) MONO x10^3 (test code 0.54 10*3/uL 0.36-1.02 = 742-7) EOS x10^3 (test code = 0.32 10*3/uL 0.06-0.53 711-2) BASO x10^3 (test code 0.09 10*3/uL 0.01-0.09 = 704-7) Lab Interpretation Abnormal (test code = 08576-4) [facility] GLUCOSE (AUTOMATED)2020-08-23 10:22:00 Test Item Value Reference Range Interpretation Comments POCT GLU (test code = 3917392078) 164 mg/dL 70-110 H Lab Interpretation (test code = Abnormal 37764-8) [facility] GLUCOSE (AUTOMATED)2020-08-23 05:56:00 Test Item Value Reference Range Interpretation Comments POCT GLU (test code = 7999898338) 242 mg/dL 70-110 H Lab Interpretation (test code = Abnormal 20346-6) [facility] GLUCOSE (AUTOMATED)2020-08-23 03:02:00 Test Item Value Reference Range Interpretation Comments POCT GLU (test code = 8805613838) 210 mg/dL 70-110 H Lab Interpretation (test code = Abnormal 44836-1) [facility] GLUCOSE (AUTOMATED)2020-08-22 23:40:00 Test Item Value Reference Range Interpretation Comments POCT GLU (test code = 3112734883) 267 mg/dL 70-110 H Lab Interpretation (test code = Abnormal 51902-0) [facility] GLUCOSE (AUTOMATED)2020-08-22 19:08:00 Test Item Value Reference Range Interpretation Comments POCT GLU (test code = 6131185264) 191 mg/dL 70-110 H Lab Interpretation (test code = Abnormal 35311-1) [facility] GLUCOSE (AUTOMATED)2020-08-22 13:50:00 Test Item Value Reference Range Interpretation Comments POCT GLU (test code = 6818483899) 174 mg/dL 70-110 H Lab Interpretation (test code = Abnormal 91901-5) [facility]URINE [id number] 12:59:00 Test Item Value Reference Range Interpretation Comments URINE CULTURE (test No aerobic growth (< code = 630-4) 1000 CFU/mL) [facility] with [id number] 11:28:00 Test Item Value Reference Range Interpretation Comments WBC (test code = See_Comment [Automated 6690-2) message] The sy stem which generated this result transmitted reference range : 4.20 - 10.70 10*3/?L. The reference range was not used to interpret this result as normal/abnormal . RBC (test code = See_Comment L [Automated 789-8) message] The sy stem which generated this result transmitted reference range : 4.26 - 5.52 10*6/?L. The reference range was not used to interpret this result as normal/abnormal . HGB (test code = 10.8 g/dL 12.2-16.4 L 718-7) HCT (test code = 34.4 % 38.4-49.3 L 4544-3) MCV (test code = 81.1 fL 81.7-95.6 L 787-2) MCH (test code = 25.5 pg 26.1-32.7 L 785-6) MCHC (test code = 31.4 g/dL 31.2-35 786-4) RDW-SD (test code = 42.5 fL 38.5-51.6 85641-9) RDW-CV (test code = 14.5 % 12.1-15.4 788-0) PLT (test code = See_Comment H [Automated 777-3) message] The sy stem which generated this result transmitted reference range : 150 - 328 10*3/ ?L. The reference r torito was not used to interpret this result as normal/abnormal . MPV (test code = 8.0 fL 9.8-13 L 28357-6) NRBC/100 WBC (test See_Comment [Automat ed code = 2746601484) message] The system which generated this result transmitted reference range : 0.0 - 10.0 /100 WBCs. The refer ence range was not u sed to interpret th is result as normal/abnormal . NRBC x10^3 (test code <0.01 See_Comment [Auto mated = 8396796994) message] The s ystem which generated this result transmitted reference range : 10*3/?L. The reference range was not used to interpret this result as normal/abnormal . GRAN MAT (NEUT) % 69.1 % (test code = 770-8) IMM GRAN % (test code 2.20 % = 2081862110) LYMPH % (test code = 20.9 % 736-9) MONO % (test code = 5.8 % 5905-5) EOS % (test code = 1.0 % 713-8) BASO % (test code = 1.0 % 706-2) GRAN MAT x10^3(ANC) 6.51 10*3/uL 1.99-6.95 (test code = 4451104359) IMM GRAN x10^3 (test 0.21 10*3/uL 0-0.06 H code = 5438407229) LYMPH x10^3 (test code 1.97 10*3/uL 1.09-3.23 = 731-0) MONO x10^3 (test code 0.55 10*3/uL 0.36-1.02 = 742-7) EOS x10^3 (test code = 0.09 10*3/uL 0.06-0.53 711-2) BASO x10^3 (test code 0.09 10*3/uL 0.01-0.09 = 704-7) BASO STIPPLING (test Present A code = 703-9) BANDS (test code = Increased A 4338172587) TOXIC CHANGES (test Present A code = 803-7) Lab Interpretation Abnormal (test code = 71986-2) [facility] Metabolic Panel (NA, K, CL, CO2, GLUCOSE, BUN, CREATININE, CA)2020-08-22 11:12:00 Test Item Value Reference Range Interpretation Comments NA (test code = 135 mmol/L 135-145 0714731024) K (test code = 3.6 mmol/L 3.5-5 9204113032) CL (test code = 99 mmol/L 98-108 0245759444) CO2 TOTAL (test code = 31 mmol/L 23-31 0689060530) AGAP (test code = 2-16 6374853203) BUN (test code = 9 mg/dL 7-23 4127084872) GLUCOSE (test code = 198 mg/dL 70-110 H 2361058538) CREATININE (test code = 0.72 mg/dL 0.6-1.25 8600264377) CALCIUM (test code = 8.3 mg/dL 8.6-10.6 L 1559047956) eGFR Calculation mL/min/1.73m2 (Non-) (test code = 6268742551) eGFR Calculation mL/min/1.73m2 () (test code = 2927784531) JAMES (test code = JAMES) Association of Glomerular Filtration Rate (GFR) and Staging of Kidney Disease* + --+ --+ ------+| GFR (mL/min/1.73 m2) ?| With Kidney Damage ?| ?Without Kidney Damage+ --------+ --------+ +| ?>90 ?| ?Stage one ?| ? Normal ?+ ---+ ---+ -------+| ?60-89 ?| ?Stage two ?| ? Decreased GFR ? + --+ --+ ------+| ?30-59 ?| ?Stage three ?| ? Stage three ? + --+ --+ ------+| ?15-29 ?| ?Stage four ? | ? Stage four ?+ ---+ ---+ -------+| ?<15 (or dialysis) ? ?| ?Stage five ? | ? Stage five ?+ ---+ ---+ -------+ *Each stage assumes the associated GFR level has been in effect for at least three months. ?Stages 1 to 5, with or without kidney disease, indicate chronic kidney disease. Notes: Determination of stages one and two (with eGFR >59mL/min/1.73 m2) requires estimation of kidney damage for at least three months as defined by structural or functional abnormalities of the kidney, manifested by either:Pathological abnormalities or Markers of kidney damage (including abnormalities in the composition of the blood or urine or abnormalities in imaging tests). Lab Interpretation Abnormal (test code = 52189-9) [facility] [id number] 11:12:00 Test Item Value Reference Range Interpretation Comments MAGNESIUM (test code = 2786067889) 2.0 mg/dL 1.7-2.4 Lab Interpretation (test code = Normal 99305-3) [facility] AustinLipid Panel (Total Cholesterol, Triglycerides, HDL) - [id number] 11:12:00 Test Item Value Reference Range Interpretation Comments CHOL (test code = 155 mg/dL 120-200 1217737894) HDL (test code = 42 mg/dL >40 3142935587) HDLC RATIO (test code = See_Comment [Au tomated message] 9929427694) The system [employer] generated this result transmit ronan reference range : <=5.0. The refe rence range was not u sed to interpret th is result as normal/abnormal . TRIG (test code = 186 mg/dL 30-170 H 7237281223) LDL CHOL (test code = 76 mg/dL See_Comment [Auto mated message] 02829-3) The system [employer] generated this result transmit ronan reference range : <=160. The refe rence range was not u sed to interpret th is result as normal/abnormal . VLDL (test code = 37 mg/dL 5-60 0869610915) Lab Interpretation (test Abnormal code = 93523-7) [facility] AustinHEPATIC FUNCTION PANEL (30277) (ALB,T.PRO,BILI T,BU/BC,ALT,AST,ALK PHOS)2020-08-22 11:12:00 Test Item Value Reference Range Interpretation Comments TOTAL BILI (test code = 3440058404) 0.6 mg/dL 0.1-1.1 BILI UNCON (test code = 7976136750) 0.2 mg/dL 0.1-1.1 BILI CONJ (test code = 7147819185) 0.0 mg/dL 0-0.3 T PROTEIN (test code = 6692612892) 6.0 g/dL 6.3-8.2 L ALBUMIN (test code = 2091082444) 2.8 g/dL 3.5-5 L ALK PHOS (test code = 4943915084) 222 U/L 34-122 H ALTv (test code = 1742-6) 27 U/L 5-50 AST(SGOT) (test code = 0841539610) 30 U/L 13-40 Lab Interpretation (test code = Abnormal 14068-2) [facility] GLUCOSE (AUTOMATED)2020-08-22 10:11:00 Test Item Value Reference Range Interpretation Comments POCT GLU (test code = 3872528242) 196 mg/dL 70-110 H Lab Interpretation (test code = Abnormal 51727-4) [facility] GLUCOSE (AUTOMATED)2020-08-22 07:15:00 Test Item Value Reference Range Interpretation Comments POCT GLU (test code = 9642186191) 183 mg/dL 70-110 H Lab Interpretation (test code = Abnormal 78655-0) [facility] GLUCOSE (AUTOMATED)2020-08-22 02:30:00 Test Item Value Reference Range Interpretation Comments POCT GLU (test code = 1961241761) 295 mg/dL 70-110 H Lab Interpretation (test code = Abnormal 85070-1) [facility] GLUCOSE (AUTOMATED)2020-08-21 23:46:00 Test Item Value Reference Range Interpretation Comments POCT GLU (test code = 2673515672) 258 mg/dL 70-110 H Lab Interpretation (test code = Abnormal 67348-2) [facility] AustinC-REACTIVE [id number] 18:50:00 Test Item Value Reference Range Interpretation Comments CRP (test code = 4022498682) 15.5 mg/dL <0.8 H Lab Interpretation (test code = Abnormal 59208-1) [facility]2020-08-21 18:21:00 Test Item Value Reference Range Interpretation Comments POCT GLU (test code = 7663178679) 297 mg/dL 70-110 H Lab Interpretation (test code = Abnormal 32837-5) [facility] AustinETHANOL2020-11-09 16:24:00 Test Item Value Reference Range Interpretation Comments ALCOHOL (test code = <10 mg/dL 6527631701) JAMES (test code = Toxic Greater than or JAMES) equal to 80 mg/dL. NOTE: Whole blood values are approximately 10% to 15% lower than serum and plasma. [facility] AustinGAL[facility]CLC ONLY - URINE DRUG (IMMUNOASSAY) - 4 ER [id number] 15:36:00 Test Item Value Reference Range Interpretation Comments AMPHET (test code = Negative Negative 8224150258) Cocaine Metabolite (test Negative Negative code = 3258830226) OPIATES (test code = Presumptive Positive Negative A 5556065989) THC (test code = Negative Negative 4632595684) JAMES (test code = JAMES) Urine Drug Cutoff Ranges Amphetamine: ? 1,000 ng/mLCocaine: ? 150 ng/mLOpiates: ? 300 ng/mLCannabinoids: ?50 ng/mL The results are to be used only for medical (i.e., treatment) purposes. Unconfirmed screening results must not be used for non-medical purposes (e.g., employment testing, legal testing). Lab Interpretation (test Abnormal code = 98843-3) [facility] ONLY - SYPHILIS [id number] 15:04:00 Test Item Value Reference Range Interpretation Comments Syphilis IgG/IgM (test Non-reactive Non-reactive code = 22149-1) JAMES (test code = JAMES) Non-reactive - No serologic evidence of T. pallidum infection. Cannot exclude incubating or early syphilis. Submit a second specimen in 2-4 weeks if syphilis is clinically suspected. Equivocal - Further testing to follow. Reactive - Further testing to follow. Lab Interpretation (test Normal code = 23114-9) [facility] AustinUrinalysis2020-11-09 14:52:00 Test Item Value Reference Range Interpretation Comments APPEARANCE (test code = Clear Clear 2340274873) COLOR (test code = Yellow Yellow 5296993510) PH (test code = 4.8-8.0 4358937755) SP GRAVITY (test code = 1.003-1.030 0345291930) GLU U QUAL (test code = 500 mg/dL Normal A 5497167748) BLOOD (test code = Negative Negative 7226861783) KETONES (test code = 20 mg/dL Negative A 9327508857) PROTEIN (test code = Negative Negative 2887-8) UROBILIN (test code = Normal Normal 4957215066) BILIRUBIN (test code = Negative Negative 4644834664) NITRITE (test code = Negative Negative 4056779186) LEUK RYAN (test code = Negative Negative 6333022883) RBC/HPF (test code = <1 See_Comment [Autom ated message] 0976302373) The system [employer] generated this result transmit ronan reference range : 0 - 3 HPF. The refe rence range was not u sed to interpret th is result as normal/abnormal . WBC/HPF (test code = See_Comment [Autom ated message] 5448885764) The system [employer] generated this result transmit ronan reference range : 0 - 5 HPF. The refe rence range was not u sed to interpret th is result as normal/abnormal . BACTERIA (test code = Negative Negative 2525628532) MUCOUS (test code = Slight Negative LPF A 3802284259) Lab Interpretation (test Abnormal code = 08314-8) [facility] AustinACTIVATED PARTIAL THRMPLAS [id number] 13:45:00 Test Item Value Reference Range Interpretation Comments APTT Patient (test code = See_Comment [ Automated message] 3173-2) The system [employer] generated this result transmitted ref erence range: 26 - 36 Seconds. The re ference range was not u sed to interpret this result as normal/abnor mal. Lab Interpretation (test Normal code = 54745-6) [facility]2020-08-21 13:45:00 Test Item Value Reference Range Interpretation Comments POCT GLU (test code = 7447713163) 246 mg/dL 70-110 H Lab Interpretation (test code = Abnormal 80141-4) [facility]2 [facility]-AB WITH [id number] 12:32:00 Test Item Value Reference Range Interpretation Comments HIV Negative Negative Semi-quantitative (test code = 64262-3) JAMES (test code = Non-reactive for HIV-1 JAMES) antigen and HIV-1/HIV-2 antibodies. ?No laboratory evidence of HIV infection. ?Repeat in 2-4 weeks if acute HIV infection is suspected. [facility] WITH [id number] 12:18:00 Test Item Value Reference Range Interpretation Comments WBC (test code = See_Comment [Automated 6690-2) message] The sy stem which generated this result transmitted reference range : 4.20 - 10.70 10*3/?L. The reference range was not used to interpret this result as normal/abnormal . RBC (test code = See_Comment [Automated 789-8) message] The sy stem which generated this result transmitted reference range : 4.26 - 5.52 10*6/?L. The reference range was not used to interpret this result as normal/abnormal . HGB (test code = 11.3 g/dL 12.2-16.4 L 718-7) HCT (test code = 36.8 % 38.4-49.3 L 4544-3) MCV (test code = 83.3 fL 81.7-95.6 787-2) MCH (test code = 25.6 pg 26.1-32.7 L 785-6) MCHC (test code = 30.7 g/dL 31.2-35 L 786-4) RDW-SD (test code = 44.4 fL 38.5-51.6 52822-4) RDW-CV (test code = 14.5 % 12.1-15.4 788-0) PLT (test code = See_Comment H [Automated 777-3) message] The sy stem which generated this result transmitted reference range : 150 - 328 10*3/ ?L. The reference r torito was not used to interpret this result as normal/abnormal . MPV (test code = 8.5 fL 9.8-13 L 68318-9) NRBC/100 WBC (test See_Comment [Automat ed code = 1454918156) message] The system which generated this result transmitted reference range : 0.0 - 10.0 /100 WBCs. The refer ence range was not u sed to interpret th is result as normal/abnormal . NRBC x10^3 (test code <0.01 See_Comment [Auto mated = 4628527186) message] The s ystem which generated this result transmitted reference range : 10*3/?L. The reference range was not used to interpret this result as normal/abnormal . GRAN MAT (NEUT) % 90.4 % (test code = 770-8) IMM GRAN % (test code 1.30 % = 5881723644) LYMPH % (test code = 7.1 % 736-9) MONO % (test code = 0.5 % 5905-5) EOS % (test code = 0.1 % 713-8) BASO % (test code = 0.6 % 706-2) GRAN MAT x10^3(ANC) 7.74 10*3/uL 1.99-6.95 H (test code = 3750288925) IMM GRAN x10^3 (test 0.11 10*3/uL 0-0.06 H code = 4540248995) LYMPH x10^3 (test code 0.61 10*3/uL 1.09-3.23 L = 731-0) MONO x10^3 (test code 0.04 10*3/uL 0.36-1.02 L = 742-7) EOS x10^3 (test code = <0.03 0.06-0.53 L 711-2) BASO x10^3 (test code 0.05 10*3/uL 0.01-0.09 = 704-7) POLYCHROMASIA (test 2+ See_Comment [Automa ronan code = 29743-4) message] The system which generated this result transmitted reference range : 2+. The referen ce range was not u sed to interpret th is result as normal/abnormal . BANDS (test code = Increased A 7059057112) Lab Interpretation Abnormal (test code = 46079-2) [facility]2020-[facility]-09 11:48:00 Test Item Value Reference Range Interpretation Comments Procalcitonin (test 0.36 ng/mL <0.07 H code = 9992386636) JAMES (test code = JAMES) INTERPRETATION OF PROCALCITONIN RESULTS IN ADULTS >= 18 YEARS OF AGE Initiation and discontinuation of antibiotics on patients with suspected or confirmed Lower Respiratory Tract Infection in Adults >= 18 years of age. + +-------- --------+ + -----+|Procalcitonin |Interpretation ?|Antibiotic ? ? |Considerations ? |ng/mL ? | ?|recommendation | ? + +-------- --------+ + -----+| <0.1 ? | Bacterial ? ? ?| Strongly ? ? ?| ? | ?| infection very | discouraged ? | Overruling: ? | ?| unlikely ? ? ? | ? | ? Clinically unstable ? ? ? + +-------- --------+ + ? High risk for adverse ? ? | <0.25 ?| Bacterial ? ? ?| Discouraged ? | ? outcome ? | ?| infection ? ? ?| ? | ? SEE IMPORTANT NOTE ?| ?| unlikely ? ? ? | ? | ? + +-------- --------+ + -----+| >=0.25 ? ? ? | Bacterial ? ? ?| Encouraged ? ?| ? | ?| infection ? ? ?| ? | ? | ?| likely ? | ? | Consider treatment failure ?+ +------- ---------+ -+ if levels does not decrease | >0.5 ? | Bacterial ? ? ?| Strongly ? ? ?| appropriately ? | ?| infection very | encouraged ? ?| ? | ?| likely ? | ? | ? + +-------- --------+ + -----+ Discontinuation of antibiotics in high-acuity patients with suspected or confirmed sepsis in Adults >= 18 years of age. + +-------- --------+ + -----+|Procalcitonin |Interpretation ?|Antibiotic ? ? |Considerations ? |ng/mL ? | ?|recommendation | ? + +-------- --------+ + -----+| <0.25 ?| Bacterial ? ? ?| Strongly ? ? ?| ? | ?| infection very | discouraged ? | Overruling: ? | ?| unlikely ? ? ? | ? | ? Clinically unstable ? ? ? + +-------- --------+ + ? High risk for adverse ? ? | <0.5 or drop | Bacterial ? ? ?| Discouraged ? | ? outcome ? | >80% from ? ?| infection ? ? ?| ? | ? SEE IMPORTANT NOTE ?| highest PCT ?| unlikely ? ? ? | ? | ? | level ?| ?| ? | ? + +-------- --------+ + -----+| >=0.5 ?| Bacterial ? ? ?| Encouraged ? ?| ? | ?| infection ? ? ?| ? | ? | ?| likely ? | ? | Consider treatment failure ?+ +------- ---------+ -+ if levels does not decrease | >1.0 ? | Bacterial ? ? ?| Strongly ? ? ?| appropriately ? | ?| infection very | encouraged ? ?| ? | ?| likely ? | ? | ? + +-------- --------+ + -----+ Percentage of drop of Procalcitonin calculation for Discontinuation of antibiotics in high-acuity patients with suspected or confirmed sepsis in Adults >= 18 years of age. ? Procalcitonin highest{}-Procalcitonin current{}Delta Procalcitonin = x100% ? Procalcitonin current {} IMPORTANT NOTE: Procalcitonin may be elevated without bacterial infection by physiologic stress related to trauma, hodge, chronic dialysis, metastatic cancer, surgery in the past seven days, malaria, some fungal infections, and some forms of vasculitis. The interpretation algorithm may not apply to patients with immunosuppression (equivalent of >10 mg of prednisone daily), HIV with CD4 cell count < 350 cells/mm3, active malignancy on systemic chemotherapy, solid organ transplant or hematopoietic stem cell transplantation, or hospital acquired pneumonia. Additionally, some clinical trials of procalcitonin have excluded patients with shock requiring vasopressor use, acute respiratory failure requiring mechanical ventilation, or those with known lung abscess/empyema. For further information please refer to:[email or web address] Lab Interpretation Abnormal (test code = 17282-2) [facility] AustinLAARATE [id number] 10:53:00 Test Item Value Reference Range Interpretation Comments LDH (test code = 9791498434) 351 U/L 300-600 Lab Interpretation (test code = Normal 09017-7) [facility] AustinSEDIMENTATION [id number] 10:07:00 Test Item Value Reference Range Interpretation Comments ESR (test code = See_Comment H [Automated message] 2000095264) The system [employer] generated this result transmitted ref erence range: 0 - 10 m m/HR. The reference r torito was not used to interpret this result as normal/abnor mal. Lab Interpretation (test Abnormal code = 86695-8) [facility]PO[facility]OMATED[facility]2020-08-21 09:45:00 Test Item Value Reference Range Interpretation Comments POCT GLU (test code = 6414546565) 287 mg/dL 70-110 H Lab Interpretation (test code = Abnormal 14381-6) [facility] AustinGlycosylated Hemoglobin (A1C)2020-08-21 09:29:00 Test Item Value Reference Range Interpretation Comments HGB A1C (test code = 4548-4) 9.8 % 4-6 H Lab Interpretation (test code = Abnormal 83146-5) [facility]COVID[facility] (ID NOW RAPID TESTING)2020-08-21 09:13:00 Test Item Value Reference Range Interpretation Comments SARS-CoV-2 Rapid ID NOW Not Detected Not Detected (test code = 87343-3) JAMES (test code = JAMES) ID NOW COVID-19 Assay is an isothermal nucleic acid amplification test intended for the qualitative detection of nucleic acid from SARS-CoV-2 viral RNA in nasopharyngeal (ENDOCRINOLOGY SPECIALIST) specimens. It is used under Emergency Use Authorization (EUA) by FDA. The limit of detection (LOD) of the assay is 125 Genome Equivalents/mL. A positive result is indicative of the presence of SARS-CoV-2 RNA. ?Clinical correlation with patient history and other diagnostic information is necessary to determine patient infection status. A negative (Not Detected) result does not preclude SARS-CoV-2 infection. In patients with clinical symptoms and other tests that are consistent with SARS-CoV-2 infection, negative results should be treated as presumptive negative and a new specimen should be tested with alternative PCR molecular test. Invalid: Please collect a new specimen for repeat patient testing if clinically indicated. Lab Interpretation Normal (test code = 39539-8) [facility] AustinProthrombin Time / [id number] 08:59:00 Test Item Value Reference Range Interpretation Comments PROTIME PATIENT (test See_Comment H [Auto mated message] code = 5964-2) The system [employer] generated this result transmitted ref erence range: 10.1 - 1 2.6 Seconds. The reference range was not used to int erpret this result as normal/abnormal . INR (test code = 6301-6) Nor mal INR <1.1; Warfarin Therap eutic range 2.0 to 3. 0 or 2.5 to 3.5, dep ending upon the indica tions. Lab Interpretation (test Abnormal code = 17201-7) [facility] AustinaPTT2020-11-09 08:59:00 Test Item Value Reference Range Interpretation Comments APTT Patient (test code = See_Comment [ Automated message] 3173-2) The system [employer] generated this result transmitted ref erence range: 26 - 36 Seconds. The re ference range was not u sed to interpret this result as normal/abnor mal. Lab Interpretation (test Normal code = 94309-4) [facility]BAS[facility] METABOLIC PANEL (NA, K, CL, CO2, GLUCOSE, BUN, CREATININE, CA)2020-08-21 08:52:00 Test Item Value Reference Range Interpretation Comments NA (test code = 136 mmol/L 135-145 3538450135) K (test code = 4.3 mmol/L 3.5-5 4234665884) CL (test code = 104 mmol/L 98-108 9011009214) CO2 TOTAL (test code = 24 mmol/L 23-31 2118289725) AGAP (test code = 2-16 8908894411) BUN (test code = 8 mg/dL 7-23 9322811352) GLUCOSE (test code = 308 mg/dL 70-110 H 7544616000) CREATININE (test code = 0.72 mg/dL 0.6-1.25 9167865149) CALCIUM (test code = 7.8 mg/dL 8.6-10.6 L 5494522128) eGFR Calculation mL/min/1.73m2 (Non-) (test code = 1823306647) eGFR Calculation mL/min/1.73m2 () (test code = 7016753271) JAMES (test code = JAMES) Association of Glomerular Filtration Rate (GFR) and Staging of Kidney Disease* + --+ --+ ------+| GFR (mL/min/1.73 m2) ?| With Kidney Damage ?| ?Without Kidney Damage+ --------+ --------+ +| ?>90 ?| ?Stage one ?| ? Normal ?+ ---+ ---+ -------+| ?60-89 ?| ?Stage two ?| ? Decreased GFR ? + --+ --+ ------+| ?30-59 ?| ?Stage three ?| ? Stage three ? + --+ --+ ------+| ?15-29 ?| ?Stage four ? | ? Stage four ?+ ---+ ---+ -------+| ?<15 (or dialysis) ? ?| ?Stage five ? | ? Stage five ?+ ---+ ---+ -------+ *Each stage assumes the associated GFR level has been in effect for at least three months. ?Stages 1 to 5, with or without kidney disease, indicate chronic kidney disease. Notes: Determination of stages one and two (with eGFR >59mL/min/1.73 m2) requires estimation of kidney damage for at least three months as defined by structural or functional abnormalities of the kidney, manifested by either:Pathological abnormalities or Markers of kidney damage (including abnormalities in the composition of the blood or urine or abnormalities in imaging tests). Lab Interpretation Abnormal (test code = 95040-2) [facility] AustinHEPATIC FUNCTION PANEL (82550) (ALB,T.PRO,BILI T,BU/BC,ALT,AST,ALK PHOS)2020-08-21 08:52:00 Test Item Value Reference Range Interpretation Comments TOTAL BILI (test code = 3532492121) 0.8 mg/dL 0.1-1.1 BILI UNCON (test code = 0972949431) 0.3 mg/dL 0.1-1.1 BILI CONJ (test code = 0013988118) 0.0 mg/dL 0-0.3 T PROTEIN (test code = 2852955185) 5.7 g/dL 6.3-8.2 L ALBUMIN (test code = 4655765244) 2.7 g/dL 3.5-5 L ALK PHOS (test code = 4350900301) 245 U/L 34-122 H ALTv (test code = 1742-6) 37 U/L 5-50 AST(SGOT) (test code = 8418071471) 43 U/L 13-40 H Lab Interpretation (test code = Abnormal 00929-5) [facility]
== END 2021-08-21 00:01 | disposition home or self-care (01) ==
LOC: ER 22:40
DX: G89.4 Chronic pain syndrome (principal); Z88.6 Allergy status to analgesic agent; Z88.8 Allergy status to other drugs, medicaments and biological substances
CPT/HCPCS: 96372; 99283; J1170

== ENCOUNTER 2021-08-28 08:06 | Emergency (ER) | payer OTHER ==
--- OUTSIDE RECORDS SUMMARY | 2021-08-28 08:14 | XMS REPORT | Continuity of Care Document ---
:1950 Author Organization [facility] t Address [address] [place] [address] Dr. Motley [address] [place] [id number] Care Team Providers Name Role Phone Edy England Primary Care Physician CECILIO WASHINGTON Attending Clinician Unavailable GIRISH Attending Clinician Unavailable Girish VILLAREAL Attending Clinician ZAKI Attending Clinician Unavailable Yolis VILLAREAL, Hawa Attending Clinician Lorraine CORTEZ Attending Clinician Singer WATTS Attending Clinician Hunter VILLAREAL, Kassie Attending Clinician Nilda Kauffman MD Attending Clinician [...] Expiration Date S ource MEDICARE PART A [id number] 2007 \\T\\ B 00:00:00 [employer] INDEMNITY [id number] 2016 00:00:00 MEDICARE PART A [id number] 2014 \\T\\ B - MEDICARE 00:00:00 INDEMNITY/TRADITIO [id number] NAL CHOICE - [employer] 00:00:00 Problems Condition [...] ents Source Name Type Date Date Clinician [place] Propensi Active Rash 2020- Univers ty to 1-10 ity of adverse 00:00: [place] reaction 00 Medical s Branch PEACH DRUG Active Rash 2019- Univers INGREDI 1-10 ity of 00:00: [place] 00 Medical Branch Lidocain Drug Active Itching 2019- Univers e Allergy -09 ity of 00:00: [place] 00 Medical Branch LIDOCAIN DRUG Active ITCHING 2020- Univers E INGREDI 1-09 ity of 00:00: [place] 00 Medical Branch Meperidi Propensi Active Anaphylaxis 0 U nivers ne ty to 3-16 ity of adverse 00:00: [place] reaction 00 Medical s Branch Glimepir Propensi Active Hives 0 Univer s efren ty to 3-16 ity of adverse 00:00: [place] reaction 00 Medical s Branch Metformi Propensi Active Itching Unive rs n ty to 3-16 ity of adverse 00:00: [place] reaction 00 Medical s Branch MEPERIDI DRUG Active Anaphylaxis Uni vers NE INGREDI 3-16 ity of 00:00: [place] 00 [facility] Branch GLIMEPIR DRUG Active Hives Univers EFREN INGREDI 3-16 ity of 00:00: [place] 00 Medical Branch METFORMI DRUG Active ITCHING Univers N INGREDI 3-16 ity of 00:00: [place] 00 Medical Branch Social History Social Habit Start Date Stop Date Quantity Comments Source Exposure to Not sure University of SARS-CoV-2 [facility] (event) Branch History of Chews Tobacco University of tobacco use [facility] History [facility] 2020-11-17 2020-11-17 5 University o f Financial 00:00:00 00:00:00 [facility] History [facility] Food 2020-11-17 2020-11-17 1 Univers ity of Worry 00:00:00 00:00:00 [facility] History [facility] Food 2020-11-17 2020-11-17 1 Univers ity of Scarcity 00:00:00 00:00:00 [facility] History [facility] 2020-11-17 2020-11-17 1 University o f Transport Med 00:00:00 00:00:00 [place] Medic al Branch History [facility] 2020-11-17 2020-11-17 1 University o f Transport Non-Med 00:00:00 00:00:00 [facility] edical Branch Education 2020-11-16 2020-11-16 21 [place] of 00:00:00 00:00:00 [facility] Alcohol intake 2020-11-16 2020-11-16 Ex-drinker [place] of 00:00:00 00:00:00 (finding) [facility] Tobacco use and 2020-08-21 2020-08-21 Former user Universi ty of exposure 00:00:00 00:00:00 [facility] Tobacco Comment 2020-08-21 2020-08-21 quit 10 years Univer sity of 00:00:00 00:00:00 ago, started in [place] Med ical 2nd year of Branch college (~40 years) Alcohol Comment 2020-08-21 2020-08-21 Used to have 2-3 Uni versity of 00:00:00 00:00:00 six-packs of [place] Medica l beer daily x 20 Branch years, quit 2005 History [facility] 2020-08-21 2020-08-21 99 University o f Alcohol Frequency 00:00:00 00:00:00 [place] M edical Branch History [facility] 2020-08-21 2020-08-21 99 [place] o f Alcohol Std 00:00:00 00:00:00 [place] Medical Drinks Branch History [facility] 2020-08-21 2020-08-21 99 University o f Alcohol Binge 00:00:00 00:00:00 [place] Medic al Branch Sex [birth year] Universit y of 00:00:00 00:00:00 [facility] Smoking Status Start Date Stop Date Source Never smoker [facility] Medications Ordered Filled Start Stop Current [...] FLEXPEN SC) 18 skin. Medical Branch mirtazapine 2020-0 Yes 7.5mg Take 7.5 U nivers 7.5 mg 3-07 mg by ity of tablet 22:47: mouth at [place] 18 bedtime. Medical Branch HYDROmorpho 2020-0 Yes 4mg Take 4 mg U nivers ne 3-07 by mouth 2 ity of (DILAUDID) 22:47: (two) [place] 2 mg tablet 18 times Medical daily. Branch INSULIN 0 Yes 5U inject 5 Univer s ASPART [...] 0845, Until Discontinu ed, Routine amLODIPine Yes [id number] 10mg Take 1 Univers 10 mg 3-07 tablet by ity of tablet 00:00: mouth [place] 00 daily. Medical Branch clotrimazol Yes [id number] Apply to Univers e 1 % 3-07 face/ears, ity of topical 00:00: armpits, [place] cream 00 pannus and Medical back/any Branch other rash twice a day fluocinonid 0 Yes [id number] Apply to Univers e 0.05 % 3-07 scalp ity of solution 00:00: twice a [place] 00 day Medical Branch triamcinolo 0 Yes [id number] Apply to Univers ne 3-07 back, ity of acetonide 00:00: armpits [place] 0.1 % cream 00 and other Med ical affected Branch areas twice daily, please mix with clotrimazo le hydrOXYzine 0 Yes [id number] 10mg Take 1 Univers 10 mg 3-07 tablet by ity of tablet 00:00: mouth 2 (two) Medical times Branch daily. amLODIPine 2020-0 Yes [id number] 10mg Take 1 Univers 10 mg 3-07 tablet by ity of tablet 00:00: mouth 00 daily. Medical Branch clotrimazol 2020-0 Yes [id number] Apply to Univers e 1 % 3-07 face/ears, ity of topical 00:00: armpits, [place] cream 00 pannus and Medical back/any Branch other rash twice a day fluocinonid 0 Yes [id number] Apply to Univers e 0.05 % 3-07 scalp ity of solution 00:00: twice a day Medical Branch triamcinolo 0 Yes [id number] Apply to Univers ne 3-07 back, ity of acetonide 00:00: armpits [place] 0.1 % cream 00 and other Med ical affected Branch areas twice daily, please mix with clotrimazo le hydrOXYzine 0 Yes [id number] 10mg Take 1 Univers 10 mg 3-07 tablet by ity of tablet 00:00: mouth 2 (two) Medical times Branch daily. amLODIPine Yes [id number] 10mg Take 1 Univers 10 mg 3-07 tablet by ity of tablet 00:00: mouth 00 daily. Medical Branch clotrimazol 0 Yes [id number] Apply to Univers e 1 % 3-07 face/ears, ity of topical 00:00: armpits, [place] cream 00 pannus and Medical back/any Branch other rash twice a day fluocinonid 2020-0 Yes [id number] Apply to Univers e 0.05 % 3-07 scalp ity of solution 00:00: twice a [place] 00 day Medical Branch triamcinolo 2020-0 Yes [id number] Apply to Univers ne 3-07 back, ity of acetonide 00:00: armpits [place] 0.1 % cream 00 and other Med ical affected Branch areas twice daily, please mix with clotrimazo le hydrOXYzine Yes [id number] 10mg Take 1 Univers 10 mg 3-07 tablet by ity of tablet 00:00: mouth 2 [place] 00 (two) Medical times Branch daily. amLODIPine Yes [id number] 10mg Take 1 Univers 10 mg 3-07 tablet by ity of tablet 00:00: mouth [place] 00 daily. Medical Branch clotrimazol Yes [id number] Apply to Univers e 1 % 3-07 face/ears, ity of topical 00:00: armpits, [place] cream 00 pannus and Medical back/any Branch other rash twice a day fluocinonid Yes [id number] Apply to Univers e 0.05 % 307 scalp ity of solution 00:00: twice a [place] 00 day Medical Branch triamcinolo Yes [id number] Apply to Univers ne 3-07 back, ity of acetonide 00:00: armpits [place] 0.1 % cream 00 and other Med ical affected Branch areas twice daily, please mix with clotrimazo le hydrOXYzine Yes [id number] 10mg Take 1 Univers 10 mg 3-07 tablet by ity of tablet 00:00: mouth 2 [place] 00 (two) Medical times Branch daily. cephALEXin 2020-2020- No [id number] 500mg Take 1 Univers 500 mg 3-04 14-11 capsule by ity of capsule 00:00: 05:59 mouth [place] 00 :00 every 6 Medical (six) Branch hours for 3 days. cephALEXin 2020-0 2020- No [id number] 500mg Take 1 Univers 500 mg 3-04 14-11 capsule by ity of capsule 00:00: 05:59 mouth [place] 00 :00 every 6 Medical (six) Branch hours for 3 days. hydrOXYzine 2020-2020- No [id number] 10mg Take 1 Univers 10 mg 3- 03-07 tablet by ity of tablet 00:00: 00:00 mouth 2 [place] 00 :00 (two) Medical times Branch daily. morpHINE Yes 4mg 4 mg, Slow Uni vers injection 4 - IV Push, ity of mg 22:40: Q6HPRN, [place] 02 Starting Medical 12/16/20 Branch at 1640, [...] dose, Fri Medica l mL) 12/15/20 at Branch injection 1645, 100 mL Routine cephALEXin 2020- [...]
Duration of Therapy: 7 days NaCl 0.9% No 500mL at 999 Univ ers (NS) bolus 12-15 mL/hr, 500 it y of infusion 16:00: 15:26 mL, IV [place] 500 mL 00 :00 Piggyback, [facility] ONCE, 1 Branch dose, Fri12/15/20 at 1000, STAT HYDROmorpho Yes 4mg 4 mg, Unive ne 12-15 Oral, BID, ity of (DILAUDID) 15:30: First dose [place] tablet 4 mg 00 (after Medica l last Branch modificati on) on Fri12/15/20 at 0930, Until Discontinu ed, Routine amLODIPine 2020- No [id number] 10mg Take 1 Univers 10 mg 12-15 tablet by ity of tablet 00:00: 00:00 mouth [place] 00 :00 daily. Medical Branch HYDROmorpho No 1mg 1 mg, Univ ers ne 12-14 Oral, ity of (DILAUDID) 17:35: 15:18 Q6HPRN, [place] tablet 1 mg 30 :06 Starting Medi [facility] 12/14/20 Branch at 1135, Until Fri12/15/20 at 0918, Routine, Pain (scale 7-10) hydrOXYzine Yes 10mg 10 mg, [facility] ers (ATARAX) 12-14 Oral, BID, ity o f tablet 10 17:30: First dose [place] mg 00 on [facility] 12/14/20 at Branch 1130, Until Discontinu ed, Routine lisinopriL Yes 5mg 5 mg, Univer s (PRINIVIL,Z 12-14 Oral, ity of ESTRIL) 17:30: DAILY, [place] tablet 5 mg 00 First dose Me dical on [facility] 12/14/20 at 1130, Until Discontinu ed, Routine triamcinolo 2020- No [id number] Apply to [facility] 12-14 back, ity of acetonide 00:00: 00:00 armpits [place] 0.1 % cream 00 :00 and other Med ical affected Branch areas twice daily, please mix with clotrimazo le clotrimazol 2020- No [id number] Apply to Univers e 1 % 12-14 face/ears, ity of topical 00:00: 00:00 armpits, [place] cream 00 :00 pannus and Medical back/any Branch other rash twice a day fluocinonid 2020- No [id number] Apply to Univers e 0.05 % 12-14 scalp ity of solution 00:00: 00:00 twice a [place] 00 :00 day Medical Branch hydrOXYzine 2020- No [id number] 10mg Take 1 Univers 10 mg 12-14 [...] 1800, Until Discontinu ed, 50 mL labetaloL 2020- No 20mg 20 mg, Unive rs (NORMODYNE) [...] Yes 4mg 4 mg, Slow Univers (ZOFRAN 303 IV Push, ity of (PF)) 10:07: Q6HPRN, [place] injection 4 28 Starting Medi jose c mg 12/13/20 Branch at 0407, Until Discontinu ed, Routine, Nausea and Vomiting (N/V) ondansetron 2020- No 4mg 4 mg, Slow Univers (ZOFRAN 12-13-03 IV Push, ity of (PF)) 04:55: 05:44 ONCE, 1 [place] injection 4 00 :00 dose, [facility] ical mg 12/12/20 at Branch 2300, Routine traMADoL 2020- No 50mg 50 mg, Univer s (ULTRAM) 3 03-03 Oral, ity of tablet 50 03:45: 03:34 ONCE, 1 [place] mg 00 :00 dose, [facility] 12/12/20 at Branch 2145, Routine insulin Yes 15U 15 Units, Univ rs glargine 12-12 Subcutaneo ity o f (LANTUS 15:00: us, DAILY, [place] U-100) 00 First dose Medical injection on [facility] 15 Units 12/12/20 at 0900, Until Discontinu ed hydrOXYzine 2020- No 10mg 10 mg, Uni vers (ATARAX) 12-12 03-02 Oral, ity of tablet 10 08:15: 07:33 ONCE, 1 [place] mg 00 :00 dose, [facility] 12/12/20 at Branch 0215, Routine mirtazapine Yes 7.5mg 7.5 mg, Un toi (REMERON) 3-02 Oral, QHS, ity of tablet 7.5 03:00: First dose [place] mg 00 on [facility] 12/11/20 at Branch 2100, Until Discontinu ed, Routine venlafaxine Yes 300mg 300 mg, Un toi XR (EFFEXOR 3-02 Oral, QHS, it y of XR) 24 hr 03:00: First dose [place] capsule 300 00 on [facility] Medica l mg 12/11/20 at Branch 2100, Until Discontinu ed, Routine fluocinonid Yes Topical, Un toi e (LIDEX) 3 BID, First ity of 0.05 % 02:00: dose on [place] solution 00 Fri12/11/20 Medic al at 2000, Branch Until Discontinu ed, Routine acetaminoph 2020- No 1{tbl} 1 tablet, Univers en-codeine 12-11 03-05 Oral, ity of (TYLENOL 23:23: 13:49 Q6HPRN, [place] #3) 300-30 43 :08 Starting Medic al mg tablet 1 Fri12/11/20 Br anch tablet at 1723, Until Fri12/15/20 at 0749, Routine, Pain (scale 4-6) enoxaparin Yes 40mg 40 mg, Unive rs (LOVENOX) 12-11 Subcutaneo ity of injection 23:00: us, DAILY, [place] 40 mg 00 First dose Medical on Fri [place] 12/11/20 at 1700, Until Discontinu ed, Routine [...] ed, Routine insulin Yes 5U 5 Units, [place] [facility] s lispro 12-11 Subcutaneo ity of (human) 18:00: us, TID [place] (HumaLOG 00 MEALS, Medical U-100) First dose Branch injection 5 on [facility] Units 12/11/20 at 1200, Until Discontinu ed Polyethylen Yes 17g 17 g, [facility] rs e Glycol 12-11 Oral, ity of 3350 17:47: [id number], [place] (MIRALAX) 05 Starting Medica l powder 17 g 12/11/20 Br anch at 1147, Until Discontinu ed, Routine, Constipati on acetaminoph Yes 650mg 650 mg, Un toi en 12-11 Oral, ity of (TYLENOL) 16:51: Q6HPRN, [place] tablet 650 28 Starting Medic al mg Fri12/11/20 Branch at 1051, Until Discontinu ed, Routine, Pain (scale 1-3) FENTanyl PF No 75ug 75 mcg, Un toi (SUBLIMAZE 12-11 Slow IV ity o f (PF)) 15:00: 13:53 Push, [place] injection 00 :00 ONCE, 1 Medical 75 mcg dose, Fri Branch 12/11/20 at 0900, Routine vancomycin No [...] kg), Branch IV Piggyback, ONCE, 1 dose, Fri12/11/20 at 0630, STAT piperacilli 2020- No 3.375g [...]
Duration of therapy: 72 hours sennosides- Yes [id number] 1{tbl} Take 1 [facility] docusate 2-09 tablet by ity of sodium 00:00: mouth 2 [place] 8.6-50 mg 00 (two) Medical per tablet times Branch daily. hydrocortis Yes [id number] Apply to [facility] one 2.5 % 11-21 affected ity of cream 00:00: area(s) 2 [place] 00 (two) Medical times Branch daily. blood sugar Yes [id number] Use to [facility] diagnostic 2 check ity of (FREESTYLE 00:00: blood [place] LITE 00 glucose Medical STRIPS) 4-5 times Branch strip daily. Polyethylen Yes [id number] 17g Take 1 Univers e Glycol 2-09 Packet by ity of 3350 17 00:00: mouth [place] gram powder 00 every 24 Medi jose c (twenty-fo Branch ur) hours as needed for Constipati on. sennosides- Yes [id number] 1{tbl} Take 1 Univers docusate 2-09 tablet by ity of sodium 00:00: mouth 2 [place] 8.6-50 mg 00 (two) Medical per tablet times Branch daily. hydrocortis 2020-0 Yes [id number] Apply to Univers one 2.5 % 2-09 affected ity of cream 00:00: area(s) 2 [place] 00 (two) Medical times Branch daily. blood sugar 2020-0 Yes [id number] Use to Univers diagnostic 11-21 check ity of (FREESTYLE 00:00: blood [place] LITE 00 glucose Medical STRIPS) 4-5 times Branch strip daily. Polyethylen 2020-0 Yes [id number] 17g Take 1 Univers e Glycol 2-09 Packet by ity of 3350 17 00:00: mouth [place] gram powder 00 every 24 Medi jose c (twenty-fo Branch ur) hours as needed for Constipati on. sennosides- 2020-0 Yes [id number] 1{tbl} Take 1 Univers docusate 2-09 tablet by ity of sodium 00:00: mouth 2 [place] 8.6-50 mg 00 (two) Medical per tablet times Branch daily. hydrocortis 2020-0 Yes [id number] Apply to Univers one 2.5 % 2-09 affected ity of cream 00:00: area(s) 2 [place] 00 (two) Medical times Branch daily. blood sugar 2020-0 Yes [id number] Use to [facility] diagnostic 11-21 check ity of (FREESTYLE 00:00: blood [place] LITE 00 glucose Medical STRIPS) 4-5 times Branch strip daily. Polyethylen 2020-0 Yes [id number] 17g Take 1 Univers e Glycol 2-09 Packet by ity of 3350 17 00:00: mouth [place] gram powder 00 every 24 Medi jose c (twenty-fo Branch ur) hours as needed for Constipati on. sennosides- 2020-0 Yes [id number] 1{tbl} Take 1 Univers docusate 2-09 tablet by ity of sodium 00:00: mouth 2 [place] 8.6-50 mg 00 (two) Medical per tablet times Branch daily. hydrocortis 2020-0 Yes [id number] Apply to Univers one 2.5 % 2-09 affected ity of cream 00:00: area(s) 2 [place] 00 (two) Medical times Branch daily. blood sugar Yes [id number] Use to [facility] diagnostic 11-21 check ity of (FREESTYLE 00:00: blood [place] LITE 00 glucose Medical STRIPS) 4-5 times Branch strip daily. Polyethylen Yes [id number] 17g Take 1 Univers e Glycol 11-21 Packet by ity of 3350 17 00:00: mouth [place] gram powder 00 every 24 Medi jose c (twenty-fo Branch ur) hours as needed for Constipati on. Insulin 2020- No [id number] 15U inject 15 Univers Glargine 11-21 Units ity of (LANTUS 00:00: 05:59 under the [place] SOLOSTAR 00 :00 skin every Medic al U-100 morning Branch INSULIN) for 30 100 unit/mL days. (3 mL) injection venlafaxine 2020- No [id number] 150mg Take 1 Univers XR 150 mg 11-21 capsule by ity of 24 hr 00:00: 05:59 mouth 3 [place] capsule 00 :00 (three) Medical times Branch daily for 30 days. Insulin 2020- No [id number] 15U inject 15 Univers Glargine 11-2112 Units ity of (LANTUS 00:00: 05:59 under the [place] SOLOSTAR 00 :00 skin every Medic al U-100 morning Branch INSULIN) for 30 100 unit/mL days. (3 mL) injection venlafaxine 2020- No [id number] 150mg Take 1 Univers XR 150 mg 11-21 capsule by ity of 24 hr 00:00: 05:59 mouth 3 [place] capsule 00 :00 (three) Medical times Branch daily for 30 days. triamcinolo 2020- No [id number] Apply to [facility] ne 11-21 area(s) 2 ity of acetonide 00:00: 00:00 (two) [place] 0.1 % cream 00 :00 times Medical daily. Branch cephALEXin 2020- No [id number] 1000mg Take 2 Univers 500 mg 11-21 capsules ity of capsule 00:00: 00:00 by mouth 3 [place] 00 :00 (three) Medical times Branch daily. doxycycline 2020- No [id number] 100mg Take 1 Univers hyclate 100 11-21 capsule by i ty of mg capsule 00:00: 00:00 mouth [place] 00 :00 every 12 Medical (twelve) Branch hours. lactobacill 2020- No [id number] 1{tbl} Take 1 Univers us 11-21 tablet by ity of acidophilus 00:00: 00:00 mouth 2 [place] 25 million 00 :00 (two) Medical cell -100 times Branch mg captab daily. bisacodyL 2020- No [id number] 10mg Insert 1 Univers 10 mg 11-21 Suppositor ity of suppository 00:00: 00:00 y into [place] 00 :00 rectum at Medical bedtime as Branch needed for Constipati on. ALPRAZolam 2020- No [id number] .25mg Take 1 Univers (XANAX) 11-21 tablet by ity of 0.25 mg 00:00: 00:00 mouth 2 [place] tablet 00 :00 (two) Medical times Branch daily. hydrOXYzine 2020- No [id number] 20mg Take 2 Univers 10 mg 11-21 [...] Units ity of (LANTUS 01:13: under the [place] SOLOSTAR) 36 skin. Medical 100 unit/mL Branch (3 mL) In INSULIN 2019-10 Yes 5U inject 5 Univer s ASPART 1-12 Units ity of (NOVOLOG 01:13: under the [place] FLEXPEN SC) 36 skin. Medical Branch ALPRAZolam 2019- Yes [...] Units ity of (LANTUS 01:13: under the [place] [facility] 36 skin. Medical 100 unit/mL Branch (3 mL) InPn INSULIN 2019-10 Yes 5U inject 5 Univer s ASPART 1-12 Units ity of (NOVOLOG 01:13: under the [facility] s FLEXPEN SC) 36 skin. Medical Branch [...] Units ity of (LANTUS 01:13: under the [place] SOLOSTVT) 36 skin. Medical 100 unit/mL Branch (3 mL) In INSULIN 2019- Yes 5U inject 5 Univer s ASPART 1-12 Units ity of (NOVOLOG 01:13: [facility] FLEXPEN [facility]) 36 skin. Medical Branch ALPRAZolam 2019- Yes [...] Units ity of (LANTUS 01:13: under the [place] [facility] 36 skin. Medical 100 unit/mL Branch (3 mL) In INSULIN 2019-10 Yes 5U inject 5 Univer s ASPART 1-12 Units ity of (NOVOLOG 01:13: under the [facility] s FLEXPEN SC) 36 skin. Medical Branch ALPRAZolam 2019- Yes [...] Units ity of (LANTUS 01:13: under the [place] SOLOSTAR) 36 skin. Medical 100 unit/mL Branch (3 mL) InPn INSULIN 2019-10 Yes 5U inject 5 Univer s ASPART 1-12 Units ity of (NOVOLOG 01:13: under the [facility] s FLEXPEN SC) 36 skin. Medical Branch [...] Units ity of (LANTUS 01:13: under the [place] SOLOSTAR) 36 skin. Medical 100 unit/mL Branch [...] mouth ity of ORAL 20:04: 00:00 daily. [place] 34 :00 Medical Branch hydrocortis 2019- Yes [id number] Apply to Univers one 2.5 % 1-11 affected ity of cream 00:00: area(s) 2 [place] (two) Medical times Branch daily. hydrOXYzine 2019-10 Yes [id number] 20mg Take 2 Univers 10 mg 1-11 tablets by ity of tablet 00:00: mouth [place] 00 every 8 Medical (eight) Branch hours as needed for Itching or Anxiety. Polyethylen 2019-10 Yes [id number] 17g Take 1 Univers e Glycol 1-11 Packet by ity of 3350 17 00:00: mouth [place] gram powder 00 every 24 Medi jose c (twenty-fo Branch ur) hours as needed for Constipati on. hydrocortis 2019-10 Yes [id number] Apply to Univers one 2.5 % 1-11 affected ity of cream 00:00: area(s) 2 [place] 00 (two) Medical times Branch daily. hydrOXYzine 2019- Yes [id number] 20mg Take 2 Univers 10 mg 1-11 tablets by ity of tablet 00:00: mouth [place] 00 every 8 Medical (eight) Branch hours as needed for Itching or Anxiety. Polyethylen 2019- Yes [id number] 17g Take 1 Univers e Glycol 1-11 Packet by ity of 3350 17 00:00: mouth [place] gram powder 00 every 24 Medi jose c (twenty-fo Branch ur) hours as needed for Constipati on. hydrocortis 2019- Yes [id number] Apply to Univers one 2.5 % 1-11 affected ity of cream 00:00: area(s) 2 [place] 00 (two) Medical times Branch daily. hydrOXYzine 2019- Yes [id number] 20mg Take 2 Univers 10 mg 1-11 tablets by ity of tablet 00:00: mouth [place] 00 every 8 Medical (eight) Branch hours as needed for Itching or Anxiety. Polyethylen 2020- Yes [id number] 17g Take 1 Univers e Glycol 1-11 Packet by ity of 3350 17 00:00: mouth [place] gram powder 00 every 24 Medi jose c (twenty-fo Branch ur) hours as needed for Constipati on. hydrocortis 2019- Yes [id number] Apply to Univers one 2.5 % 1-11 affected ity of cream 00:00: area(s) 2 [place] 00 (two) Medical times Branch daily. hydrOXYzine 2019- Yes [id number] 20mg Take 2 Univers 10 mg 1-11 tablets by ity of tablet 00:00: mouth [place] 00 every 8 Medical (eight) Branch hours as needed for Itching or Anxiety. Polyethylen 2019- Yes [id number] 17g Take 1 Univers e Glycol 1-11 Packet by ity of 3350 17 00:00: mouth [place] gram powder 00 every 24 Medi jose c (twenty-fo Branch ur) hours as needed for Constipati on. hydrocortis 2019-10 Yes [id number] Apply to Univers one 2.5 % 1-11 affected ity of cream 00:00: area(s) 2 [place] 00 (two) Medical times Branch daily. hydrOXYzine 2019- Yes [id number] 20mg Take 2 Univers 10 mg 1-11 tablets by ity of tablet 00:00: mouth [place] 00 every 8 Medical (eight) Branch hours as needed for Itching or Anxiety. Polyethylen 2019- Yes [id number] 17g Take 1 Univers e Glycol 1-11 Packet by ity of 3350 17 00:00: mouth [place] gram powder 00 every 24 Medi jose c (twenty-fo Branch ur) hours as needed for Constipati on. hydrocortis 2019- Yes [id number] Apply to Univers one 2.5 % 1-11 affected ity of cream 00:00: area(s) 2 [place] 00 (two) Medical times Branch daily. hydrOXYzine 2019- Yes [id number] 20mg Take 2 Univers 10 mg 1-11 tablets by ity of tablet 00:00: mouth [place] 00 every 8 Medical (eight) Branch hours as needed for Itching or Anxiety. Polyethylen 2019- Yes [id number] 17g Take 1 Univers e Glycol 1-11 Packet by ity of 3350 17 00:00: mouth [place] gram powder 00 every 24 Medi jose c (twenty-fo Branch ur) hours as needed for Constipati on. hydrocortis 2019-10 Yes [id number] Apply to Univers one 2.5 % 1-11 affected ity of cream 00:00: area(s) 2 [place] 00 (two) Medical times Branch daily. hydrOXYzine 2019-10 Yes [id number] 20mg Take 2 Univers 10 mg 1-11 tablets by ity of tablet 00:00: mouth [place] 00 every 8 Medical (eight) Branch hours as needed for Itching or Anxiety. Polyethylen 2019-10 Yes [id number] 17g Take 1 Univers e Glycol 1-11 Packet by ity of 3350 17 00:00: mouth [place] gram powder 00 every 24 Medi jose c (twenty-fo Branch ur) hours as needed for Constipati on. triamcinolo 2019-10 2020- No [id number] Apply to [facility] 10-23 area(s) 2 ity of acetonide 00:00: 05:59 (two) [place] 0.1 % cream 00 :00 times Medical daily for Branch 14 days. triamcinolo 2019-10 2020- No [id number] Apply to [facility] 10-23 area(s) 2 ity of acetonide 00:00: 05:59 (two) [place] 0.1 % cream 00 :00 times Medical daily for Branch 14 days. triamcinolo 2019-10 2020- No [id number] Apply to [facility] 10-23 area(s) 2 ity of acetonide 00:00: 05:59 (two) [place] 0.1 % cream 00 :00 times Medical daily for Branch 14 days. KCL 2019-10 2020- No 40meq 40 mEq, Univers (KLOR-CON 10-22- Oral, ONCE ity of M20) tablet 16:15: 16:23 NOW, 1 Jeff as 40 mEq 00 :00 dose, [facility] Medical 08/22/20 Branch at 1015, Routine HYDROmorpho 2019-10 Yes 1mg 1 mg, Unive rs ne - Oral, ity of (DILAUDID) 15:07: Q6HPRN, [place] tablet 1 mg 53 Starting Medi jose c Tue Branch 08/22/20 at 0907, Until Discontinu ed, Routine, Pain (scale 7-10) hydrocortis 2019- Yes Topical Uni vers one 2.5 % 1-10 (Apply To ity o f cream 02:00: Affected [place] 00 Areas), Medical BID, First Branch dose on [facility] 08/21/20 at 2000, Until Discontinu ed, Routine triamcinolo 2019- Yes Topical, Un toi ne 1-10 BID, First ity of acetonide 02:00: dose on [place] (TRIDERM) 00 [facility] Medical 0.1 % cream 08/21/20 at Br anch 2000, Until Discontinu ed, Routine hydrOXYzine 2019-10 Yes 20mg 20 mg, Univ ers (ATARAX) 09 Oral, ity of tablet 20 17:39: Q8HPRN, [place] mg 12 Starting Medical [facility] Branch 08/21/20 at 1139, Until Discontinu ed, Routine, Itching, Anxiety sennosides- 2019-10 Yes 1{tbl} 1 tablet, Univers docusate 10-21 Oral, ity of sodium 15:00: DAILY, [place] (SENOKOT-S) 00 First dose Me dical 8.6-50 mg on [facility] Branch per tablet 08/21/20 at 1 tablet 0900, Until Discontinu ed, Routine hydrocortis 2019-10 2020- No Topical Un toi one 1 % 10-21- (Apply To ity of cream 15:00: 22:54 Affected [place] 00 :48 Areas), Medical DAILY, Branch First dose on [facility] 08/21/20 at 0900, Until Discontinu ed, Routine venlafaxine 2019-10 Yes 150mg 150 mg, Un toi XR (EFFEXOR 09 Oral, TID, it y of XR) 24 hr 14:00: First dose [place] capsule 150 00 on [facility] Medica l mg 08/21/20 at Branch 0800, Until Discontinu ed, Routine heparin 2019-10 Yes 5000U 5,000 Univers (porcine) -09 Units, ity of injection 14:00: Subcutaneo [place] 5,000 Units 00 us, Q12H, Med ical First dose Branch on [facility] 08/21/20 at 0800, Until Discontinu ed, Routine diphenhydrA 2019-10 2020- No 25mg 25 mg, Uni vers MINE 10-21 Oral, ity of (BENADRYL) 12:56: 17:39 Q8HPRN, [place] as tablet 25 59 :43 Starting Medica l mg [facility] 08/21/20 at 0656, Until [facility] 08/21/20 at 1139, Routine, Itching, Mild Rash, Congestion /Allergies , alternate with hydroxyzin e hydrOXYzine 2019-10- No 10mg 10 mg, Uni vers (ATARAX) 10-21 Oral, ity of tablet 10 10:20: 12:57 Q6HPRN, [place] mg 22 :12 Starting [facility] 08/21/20 at 0420, Until [facility] 08/21/20 at 0657, Routine, Itching, Anxiety Sliding 2019-10 Yes Subcutaneo [facility] ers Scale 09 us, Q4H, ity of Insulin - 10:00: First dose [place] Aspart 00 (after Medical (NOVOLOG) + last Branch Fsbg modificati Testing on) on [facility] 08/21/20 at 0400, Until Discontinu ed, Routine lidocaine 5 2019-10 2020- No Topical, U nivers % ointment 10-21 ONCE, 1 ity o f 09:30: 09:14 dose, [facility] 00 :00 08/21/20 at [facility] 0330, Branch Routine Polyethylen 2019-10 Yes 17g 17 g, [facility] rs e Glycol 10-21 Oral, ity of 3350 08:29: [id number], [place] (MIRALAX) Starting Medica l powder 17 g [facility] 08/21/20 at 0229, Until Discontinu ed, Routine, Constipati on lanolin 2019-10 Yes Topical, [facility]-mo- 10-21 PRN, ity of w.pet-ceres 08:26: [place] (EUCERIN) 30 [facility] cream 08/21/20 at Branch 0226, Until Discontinu ed, Routine, Dermatitis /Rash ALPRAZolam 2019-10 Yes .25mg 0.25 mg, Un toi (XANAX) 10-21 Oral, ity of tablet 0.25 08:25: BIDPRN, [place] as mg 41 Starting [facility] 08/21/20 at 0225, Until Discontinu ed, Routine, anxiety traZODONE 2019-10- No 100mg Take 100 Un toi (DESYREL) [...] tablet 650 24 Starting Medic al mg Mon Branch 08/21/20 at 0145, Until Discontinu ed, Routine, Pain (scale 1-3) sotalol 2019-10- No Take by Unive rs (BETAPACE) 10-21 mouth ity of 240 mg 07:43: 00:00 every 12 [place] tablet 30 :00 (twelve) Medical hours. Branch blood sugar Yes Use to DCITS ers diagnostic 4-25 check ity of (FREESTYLE 00:00: blood [place] LITE 00 glucose Medical STRIPS) 4-5 times Branch strip daily. blood sugar Yes Use to DCITS ers diagnostic 4-25 check ity of (FREESTYLE 00:00: blood [place] LITE 00 glucose Medical STRIPS) 4-5 times Branch strip daily. blood sugar Yes Use to Univ ers diagnostic 4-25 check ity of (FREESTYLE 00:00: blood [place] LITE 00 glucose Medical STRIPS) 4-5 times Branch strip daily. blood sugar Yes Use to DCITS ers diagnostic 4-25 check ity of (FREESTYLE 00:00: blood [place] LITE 00 glucose Medical STRIPS) 4-5 times Branch strip daily. blood sugar Yes Use to DCITS ers diagnostic 4-25 check ity of (FREESTYLE 00:00: blood [place] LITE 00 glucose Medical STRIPS) 4-5 times Branch strip daily. blood sugar Yes Use to [facility] ers diagnostic 4-25 check ity of (FREESTYLE [...] 13:00:00 148 mm[Hg] Univer sity of pressure [place] [facility] Diastolic blood 2021-08-22 13:00:00 84 mm[Hg] Unive rsity of pressure [facility] Heart rate 2021-08-22 13:00:00 103 /min [facility] Respiratory rate 2021-08-22 13:00:00 18 /min Univ ersity of [place] [facility] [place] Oxygen saturation in 2021-08-22 13:00:00 95 /min University of Arterial blood by [facility] Pulse oximetry Branch Body temperature 2021-08-22 12:22:00 36.72 [place] Univ ersity of [place] [facility] Systolic blood 2020-12-17 18:35:00 139 mm[Hg] Univer sity of pressure [place] [facility] Diastolic blood 2020-12-17 18:35:00 87 mm[Hg] Unive rsity of pressure [place] [facility] Heart rate 2020-12-17 18:35:00 110 /min [facility] Body temperature 2020-12-17 18:35:00 37.72 [place] Univ ersity of [place] [facility] Respiratory rate 2020-12-17 18:35:00 18 /min Univ ersity of [place] [facility] Oxygen saturation in 2020-12-17 18:35:00 93 /min University of Arterial blood by [facility] Pulse oximetry Branch Body height 2020-12-12 08:21:00 180.3 cm [facility] Body weight 2020-12-12 08:21:00 103.42 kg [facility] BMI 2020-12-12 08:21:00 31.80 kg/m2 [facility] Systolic blood 2020-12-17 18:35:00 139 mm[Hg] Univer sity of pressure [place] [facility] Diastolic blood 2020-12-17 18:35:00 87 mm[Hg] Unive rsity of pressure [place] [facility] Heart rate 2020-12-17 18:35:00 110 /min [facility]i ty [facility] [place] [facility] [place] Body temperature 2020-12-17 18:35:00 37.72 [place] Univ ersity [facility] [place] [facility] Respiratory rate 2020-12-17 18:35:00 18 /min Univ ersity of [place] [facility] Oxygen saturation in 2020-12-17 18:35:00 93 /min University of Arterial blood by [place] [facility] jose [facility] Pulse oximetry Branch Body height 2020-12-12 08:21:00 180.3 cm [facility]i ty [facility] [place] [facility] [place] Body weight 2020-12-12 08:21:00 103.42 kg [facility] [place] [facility] [place] BMI 2020-12-12 08:21:00 31.80 kg/m2 [facility] [place] [facility] Systolic blood 2020-08-23 19:27:00 140 mm[Hg] Univer sity of pressure [place] [facility] Diastolic blood 2020-08-23 19:27:00 79 mm[Hg] Unive rsity of pressure [place] [facility] Heart rate 2020-08-23 19:27:00 99 /min [facility]i ty [facility] [place] [facility] [place] Body temperature 2020-08-23 19:27:00 36 [place] Univ ersity [facility] [place] [facility] Respiratory rate 2020-08-23 19:27:00 18 /min Univ ersity of [place] [facility] Oxygen saturation in 2020-08-23 19:27:00 93 /min University of Arterial blood by [place] [facility] jose c Pulse oximetry Branch Body weight 2020-08-21 07:20:00 104.962 kg [facility]i [facility] [place] [facility] BMI 2020-08-21 07:20:00 32.27 kg/m2 [facility]i ty [facility] [place] [facility] Systolic blood 2020-08-23 19:27:00 140 mm[Hg] Univer sity of pressure [place] [facility] Diastolic blood 2020-08-23 19:27:00 79 mm[Hg] Unive rsity of pressure [place] [facility] Heart rate 2020-08-23 19:27:00 99 /min [facility]i ty [facility] [place] [facility] Body temperature 2020-08-23 19:27:00 36 [place] [facility] Respiratory rate 2020-08-23 19:27:00 18 /min [facility] Oxygen saturation in 2020-08-23 19:27:00 93 /min [facility] Arterial blood by [facility] Pulse oximetry [place] Body weight 2020-08-21 07:20:00 104.962 kg [facility] BMI 2020-08-21 07:20:00 32.27 kg/m2 [facility] Procedures Procedure Date / Time Performing Clinician Source Performed POCT GLUCOSE (AUTOMATED) 2020-12-17 15:42:00 Harrison[facility]EL 2020-12-17 10:45:00 Paul Bean [facility] (NA, K, CL, CO2, GLUCOSE, [place] Medica l Branch BUN, CREATININE, CA) CBC WITH DIFF 2020-12-17 10:45:00 Paul Bean [facility] POCT GLUCOSE (AUTOMATED) 2020-12-17 02:36:00 Harrison, Premal G Uni [facility] XR TIBIA FIBULA 2 VW LEFT 2020-12-16 23:38:00 Paul Baen U [facility] POCT GLUCOSE (AUTOMATED) 2020-12-16 23:20:00 Harrison, [facility] POCT [facility]UCOSE (AUTOMATED) 2020-12-16 20:10:00 Harrison, Premal G Uni versity of [facility] POCT GLUCOSE (AUTOMATED) 2020-12-16 14:43:00 Harrison, [facility] BASIC METABOLIC PANEL 2020-12-16 13:51:00 Paul Bean [facility] (NA, K, CL, CO2, GLUCOSE, [place] [facility] BUN, CREATININE, CA) CBC WITH DIFF 2020-12-16 13:51:00 Paul Bean [facility] POCT GLUCOSE (AUTOMATED) 2020-12-16 04:00:00 Harrison, Premal [facility] POCT GLUCOSE (AUTOMATED) 2020-12-16 00:14:00 Harrison, Premal G Uni versity of [facility] CT CHEST PULMONARY 2020-12-15 22:29:38 Paul Bean [facility] ANGIOGRAM [facility] POCT GLUCOSE (AUTOMATED) 2020-12-15 19:26:00 Harrison, Premal G Uni versity of [facility] POCT GLUCOSE (AUTOMATED) 2020-12-15 15:13:00 Harrison, Premal G Uni versity of [facility] HB ECG ROUTINE & RHYTHM 2020-12-15 14:25:27 Cailin Romo [facility] Branch MAGNESIUM 2020-12-15 12:01:00 Paul Bean Sivakumar [facility] BASIC METABOLIC PANEL 2020-12-15 12:01:00 Paul Bean [facility] (NA, K, CL, CO2, GLUCOSE, [place] [facility] BUN, CREATININE, CA) CBC WITH DIFF 2020-12-15 12:01:00 Paul Bean [facility] POCT GLUCOSE (AUTOMATED) 2020-12-15 03:57:00 Harrison, Premal G Uni versity of [facility] POCT GLUCOSE (AUTOMATED) 2020-12-14 23:31:00 Harrison, Premal G Uni versity of [facility] POCT GLUCOSE (AUTOMATED) 2020-12-14 19:08:00 Harrison, Premal G Uni versity of [facility] POCT GLUCOSE (AUTOMATED) 2020-12-14 15:11:00 Harrison, Premal G Uni versity of [facility] POCT GLUCOSE (AUTOMATED) 2020-12-14 02:36:00 Harrison, Premal G Uni versity of [facility] POCT GLUCOSE (AUTOMATED) 2020-12-13 23:32:00 Harrison, Premal G Uni versity of [facility] POCT GLUCOSE (AUTOMATED) 2020-12-13 18:08:00 Harrison, Premal G Uni versity of [facility] BASIC METABOLIC PANEL 2020-12-13 15:39:00 Paul Bean [facility] (NA, K, CL, CO2, GLUCOSE, [place] [facility] BUN, CREATININE, CA) CBC WITH DIFF 2020-12-13 15:39:00 Paul Bean Sivakumar [facility] POCT GLUCOSE (AUTOMATED) 2020-12-13 14:06:00 Harrison[facility] POCT GLUCOSE (AUTOMATED) 2020-12-13 03:07:00 Harrison, [facility] POCT GLUCOSE (AUTOMATED) 2020-12-12 23:52:00 Harrison, [facility]al [facility] POCT GLUCOSE (AUTOMATED) 2020-12-12 20:28:00 Harrison, Premal [facility] POCT GLUCOSE (AUTOMATED) 2020-12-12 19:14:00 Harrison, Premal [facility] POCT GLUCOSE (AUTOMATED) 2020-12-12 14:33:00 Harrison, Premal [facility] MAGNESIUM 2020-12-12 08:58:00 Paul Bean Sivakumar [facility] BASIC METABOLIC PANEL 2020-12-12 08:58:00 Paul Bean [facility] (NA, K, CL, CO2, GLUCOSE, [place] [facility] BUN, CREATININE, CA) CBC WITH DIFF 2020-12-12 08:58:00 Paul Bean Sivakumar [facility] US ABDOMEN LIMITED 2020-12-12 06:32:26 Paul Bean Sivakumar [facility] POCT GLUCOSE (AUTOMATED) 2020-12-12 03:40:00 Harrison, Premal G Uni [facility] POCT GLUCOSE (AUTOMATED) 2020-12-12 00:06:00 Harrison, Premal G Uni [facility] XR HIPS 3 VW LEFT 2020-12-11 20:20:00 Darnell Beanaham [facility] HB ECG ROUTINE & RHYTHM 2020-12-11 20:04:06 Cailin Romo [facility] VITAMIN B6, PLASMA 2020-12-11 19:17:00 [facility] POCT GLUCOSE (AUTOMATED) 2020-12-11 19:06:00 Rene Harrison [facility] CREATINE KINASE 2020-12-11 18:22:00 Clarisse Hannon [facility] VITAMIN B12, LEVEL 2020-12-11 18:22:00 Paul Bean [facility] FOLATE 2020-12-11 18:22:00 Vikas [facility] THYROID STIMULATING 2020-12-11 18:22:00 Cailin Romo [facility] HORMONE [facility] PROCALCITONIN 2020-12-11 18:22:00 Vikas [facility] VITAMIN B1 (THIAMINE), 2020-12-11 18:22:00 Paul Bean Sivakumar [facility] WHOLE BLOOD [facility] CT HEAD WO CONTRAST 2020-12-11 14:07:35 Sweetie Stout [facility] URINALYSIS 2020-12-11 13:44:00 Singer [facility] URINE CULTURE 2020-12-11 13:44:00 [facility] COVID-19 (ID NOW RAPID 2020-12-11 12:31:00 Paco Lacey [facility] TESTING) [facility] LAB ONLY COVID 2020-12-11 12:31:00 Singer [facility] XR CHEST 1 VW 2020-12-11 12:07:24 Singer [facility] BLOOD CULTURE SCREEN 2020-12-11 12:02:00 Paco Lacey [facility] MAGNESIUM 2020-12-11 12:02:00 Paul Bean Sivakumar [facility] FERRITIN SERUM 2020-12-11 12:02:00 Darnell Beanaham Sivakumar [facility] COMP. METABOLIC PANEL 2020-12-11 12:02:00 Paco Lacey [facility] ([id number]) Medical Branch CBC WITH DIFF 2020-12-11 12:02:00 Singer [facility] LACTIC ACID WHOLE BLOOD 2020-12-11 12:02:00 Paco Lacey [facility] BLOOD CULTURE SCREEN 2020-12-11 11:42:00 Paco Lacey [facility] EMERGENCY SERVICES 2020-12-11 06:01:00 Doctor Tabitha, [facility] AGREEMENTS AND [place] [facility] AUTHORIZATIONS HOSPITAL ADMISSION 2020-12-11 06:01:00 Doctor Tabitha [facility] [place] [facility] HOME HEALTH - OTHER 2020-11-11 06:01:00 Doctor Tabitha [facility] [place] [facility] HEALTH - OTHER 2020-10-30 06:01:00 Doctor Tabitha [facility] Name [facility] EXTERNAL PROVIDER RECORDS 2020-09-01 06:01:00 Doctor Tabitha, [facility] Name [facility] POCT GLUCOSE (AUTOMATED) 2020-08-23 18:09:00 Kelly Washington [facility] POCT GLUCOSE (AUTOMATED) 2020-08-23 14:14:00 Kelly Washington [facility] MAGNESIUM 2020-08-23 11:18:00 [facility] BASIC METABOLIC PANEL 2020-08-23 11:18:00 [facility] (NA, K, CL, CO2, GLUCOSE, Medica l Branch BUN, CREATININE, CA) CBC WITH DIFF 2020-08-23 11:18:00 [facility] POCT GLUCOSE (AUTOMATED) 2020-08-23 10:21:00 [facility] ([facility]) 2020-08-23 05:55:00 Kelly Washington versity [facility] POCT GLUCOSE (AUTOMATED) 2020-08-23 03:00:00 Kelly [place] versity [facility] POCT GLUCOSE (AUTOMATED) 2020-08-22 23:38:00 Kelly Washington Uni versity [facility] POCT GLUCOSE (AUTOMATED) 2020-08-22 19:04:00 Washington, Kelly Uni [facility] POCT GLUCOSE (AUTOMATED) 2020-08-22 13:49:00 Kelly Washington [facility] MAGNESIUM 2020-08-22 10:10:00 [place], [facility] HEPATIC FUNCTION PANEL 2020-08-22 10:10:00 Jill Aguila [facility] ([id number]) (ALB,T.PRO,BILI Medical Branch T,BU/BC,ALT,AST,ALK PHOS) BASIC METABOLIC PANEL 2020-08-22 10:10:00 [place], [facility] (NA, K, CL, CO2, GLUCOSE, Medica l Branch BUN, CREATININE, CA) LIPID PANEL ([id number])(TOTAL 2020-08-22 10:10:00 [place], [facility] TRIGLYCERIDES, HDL) CBC WITH DIFF 2020-08-22 10:10:00 [facility] POCT GLUCOSE (AUTOMATED) 2020-08-22 10:10:00 Kelly Washington [facility] POCT GLUCOSE (AUTOMATED) 2020-08-22 07:13:00 Kelly Washington [facility] POCT GLUCOSE (AUTOMATED) 2020-08-22 02:24:00 Kelly Washington [facility] POCT GLUCOSE (AUTOMATED) 2020-08-21 23:40:00 Kelly Washington [facility] POCT GLUCOSE (AUTOMATED) 2020-08-21 18:10:00 Kelly Washington [facility] POCT GLUCOSE (AUTOMATED) 2020-08-21 13:39:00 Kelly Washington [facility] ETHANOL 2020-08-21 12:35:00 Jos Quiroz [facility] ACTIVATED PARTIAL 2020-08-21 12:35:00 Padmini [facility] THRMPLAS [facility] GALV ONLY - SYPHILIS 2020-08-21 12:35:00 Padmini Kelly [facility] IGG/IGM [facility] LACTATE DEHYDROGENASE 2020-08-21 10:09:00 Ramya, [facility] GALV/CLC ONLY - URINE 2020-08-21 10:09:00 Jos Quiroz [facility] DRUG (IMMUNOASSAY) - 4 ER Medica l Branch PANEL URINALYSIS 2020-08-21 10:09:00 [place], [facility] URINE CULTURE 2020-08-21 10:09:00 Ramya, [facility] PROCALCITONIN 2020-08-21 10:09:00 Ramya, [facility] POCT GLUCOSE (AUTOMATED) 2020-08-21 09:41:00 Kelly Washington [facility] PROTHROMBIN TIME / INR 2020-08-21 08:32:00 [place], [facility] ACTIVATED PARTIAL 2020-08-21 08:32:00 [place], [facility] THRMPLAS [facility] C-REACTIVE PROTEIN 2020-08-21 08:31:00 [place], [facility] HEPATIC FUNCTION PANEL 2020-08-21 08:31:00 [place], [facility] ([id number]) (ALB,T.PRO,BILI Medical Branch T,BU/BC,ALT,AST,ALK PHOS) BASIC METABOLIC PANEL 2020-08-21 08:31:00 Ramya, [facility] (NA, K, CL, CO2, [facility] [place] BUN, CREATININE, CA) SEDIMENTATION RATE 2020-08-21 08:31:00 [place], [facility] CBC WITH DIFF 2020-08-21 08:31:00 Ramya, [facility] GLYCOSYLATED HEMOGLOBIN 2020-08-21 08:31:00 Ramya, [facility] (A1C) [facility] HIV 1/2 AG-AB WITH REFLEX 2020-08-21 08:31:00 [facility] (ID NOW RAPID 2020-08-21 08:20:00 Ramya, [facility] TESTING) Medical Branch LAB ONLY COVID 2020-08-21 08:20:00 [place], [facility] o f [facility] Encounters Start End Encounter Admission Attending Care Care Encounter Source Date/Time Date/Time Type Type Clinicians Facility Department ID 2020-08-21 Inpatient Shayy WASHINGTON [facility] KVNG [id number] Univers 01:07:00 KELLY cantu [facility] 2021-08-22 2021-08-22 [id number] Univers 06:21:00 08:02:00 SWEETIE cantu [facility] 2021-08-22 2021-08-22 [facility] [id number] Univers 06:21:00 08:02:00 Sweetie OREN [id number] i ty of [id number] [id number] [facility] 084 [place] 2021-08-09 2021-08-09 Outpatient ZAKI, [facility] [id number] [facility] 10:27:03 10:27:03 ADRIANA lopez of Medicin e 2020-12-28 2020-12-28 Telephone [facility] [id number] 00:00:00 00:00:00 Calvin H PRIMARY [id number] CARE [id number] PAVILLION [id number] 2020-12-28 2020-12-28 Telephone [facility] [id number] Univers 00:00:00 00:00:00 Calvin H PRIMARY [id number] it y of C[id number] [place] [facility] [id number] Nm dical 220 Branch 2020-12-19 2020-12-19 Transition Tuan Peters [id number] 00:00:00 00:00:00 of Care Ruchi Braswell [id number] [place] [id number] 2020-12-19 2020-12-19 Transition Tuan Peters [id number] Univers 00:00:00 00:00:00 of Care Ruchi Braswell [id number] it y of [id number] [id number] [facility] 403 Branch 2020-12-11 2020-12-17 [facility] Paco Lacey [id number] 05:11:00 16:00:00 Encounter Rene Harrison [place] [id number] [facility] [id number] [id number] [facility] 2020-12-11 2020-12-17 [facility] [id number] [facility] 05:11:00 16:00:00 Encounter Rene Harrison [id number] ity of [facility] [id number] [place] [id number] [place] [id number] [place] 2020-12-11 2020-12-11 Emergency X [facility] ERT [id number] Univers 05:11:00 05:11:00 [facility] 2020-11-16 2020-11-16 Emergency X [facility] ERT [id number] Univers 09:31:00 09:31:00 [facility] 2020-11-11 2020-11-11 Orders Doctor CUI [id number] 00:00:00 00:00:00 Only Unassigned, MONIQUE [id number] [facility] [id number] [id number] 2020-11-11 2020-11-11 Orders Doctor CUI 1.2.840.114 [id number] Univers 00:00:00 00:00:00 Only Unassigned, MONIQUE [id number] ity of [facility] [id number] Jeff as [id number] [facility] 009 [place] 2020-11-07 2020-11-07 Telephone Wilder [facility] [id number] 00:00:00 00:00:00 Angi Tobin [id number] [place] [id number] Professio [id number] [address] 2020-11-07 2020-11-07 Telephone Hdz [facility] [id number] [facility] 00:00:00 00:00:00 Sendil DiegoWongHawaWong Tobin [id number] ity of [place] [id number] Profess[place] [id number] [address] 2020-10-30 2020-10-30 Orders Doctor BASILIA 1.2.840.114 [id number] 00:00:00 00:00:00 Only Unassigned, MONIQUE [id number] [place] [facility] [id number] [id number] [facility] 2020-10-30 2020-10-30 Orders Doctor CUI [id number] Univers 00:00:00 00:00:00 Only Unassigned, MONIQUE [id number] ity of [place] [facility] [id number] Jeff as [id number] [address] 2020-09-26 2020-09-26 Telephone [facility] 1.2.840.114 [id number] 00:00:00 00:00:00 [facility] 350.1.13.10 CLINICS 4.2.7.2.686 [id number] [facility] 2020-09-26 2020-09-26 Telephone [facility] 1.2.840.114 [id number] Univers 00:00:00 00:00:00 [facility] 350.1.13.10 i ty of [id number] [address] 2020-09-01 2020-09-01 Orders Doctor CUI 1.2.840.114 [id number] 00:00:00 00:00:00 Only Unassigned, MONIQUE 350.1.13.10 [facility] 4.2.7.2.686 [id number] 009 2020-09-01 2020-09-01 Orders Doctor BASILIA 1.2.840.114 [id number] Univers 00:00:00 00:00:00 Only Unassigned, MONIQUE 350.1.13.10 ity of [facility] 4.2.7.2.686 Jeff as [phone] [facility] [address] 2020-08-25 2020-08-25 Transition Tuan Peters 1.2.840.114 [id number] 00:00:00 00:00:00 of Care Ruchi Braswell 350.1.13.10 [place] 4.2.7.2.686 [id number] [facility] 2020-08-25 2020-08-25 Transition Tuan Peters 1.2.840.114 [id number] [facility] 00:00:00 00:00:00 of Care Ruchi Braswell 350.1.13.10 it [id number] [address] 2020-08-21 2020-08-23 [facility] Ayleen 1.2.840.114 [id number] 01:07:00 18:35:00 Encounter Kelly Amaya 350.1.13.10 [facility] 4.2.7.2.686 [id number] [facility] 2020-08-21 2020-08-23 [facility] 2.840.114 [id number] [facility] 01:07:00 18:35:00 Encounter Nicci Mukul Kika Monique 350.1.13. 10 ity [facility] 4.2.7.2.686 Jeff as [id number] [address] Results Test Description Test Time Test Comments Results Result Comments Source POCT GLUCOSE (AUTOMATED) 2020-12-17 15:43:35 Test Item Value Reference Range Interpretation Comme nts POCT GLU (test code = 9676524551) 129 mg/dL 70-110 H Lab Interpretation (test code = 91211-0) Abnormal [facility] METABOLIC PANEL (NA, K, CL, CO2, GLUCOSE, BUN, CREATININE, CA)2020-12-17 11:45:07 Test Item Value Reference Range Interpretation Comments NA (test code = 137 mmol/L 135-145 8092695457) K (test code = 3.5 mmol/L 3.5-5.0 7158254187) CL (test code = 103 mmol/L 98-108 1900908744) CO2 TOTAL (test code = 26 mmol/L 23-31 7725704218) AGAP (test code = 2-16 6811368315) BUN (test code = 11 mg/dL 7-23 8768130305) GLUCOSE (test code = 175 mg/dL 70-110 H 9757331378) CREATININE (test code = 0.62 mg/dL 0.60-1.25 1709191311) CALCIUM (test code = 9.0 mg/dL 8.6-10.6 4116820886) eGFR Calculation mL/min/1.73m2 (Non-) (test code = 6721361264) eGFR Calculation mL/min/1.73m2 () (test code = 3473309311) JAMES (test code = JAMES) Association of [...] tests). Lab Interpretation Abnormal (test code = 87198-2) [facility] WITH [id number] 11:07:27 Test Item Value Reference Range Interpretation [...] RDW-SD (test code = 45.2 fL 38.5-51.6 70223-7) RDW-CV (test code = 16.9 % 12.1-15.4 H 788-0) PLT (test code = See_Comment H [Automated 777-3) message] The sy stem which generated this result transmitted reference range : 150 - 328 10*3/ ?L. The reference r torito was not used to interpret this result as normal/abnormal . MPV (test code = 8.1 fL 9.8-13.0 L 98560-4) NRBC/100 WBC (test See_Comment [Automat ed code = 7543654962) message] The system which generated this result transmitted reference range : 0.0 - 10.0 /100 WBCs. The refer ence range was not u sed to interpret th is result as normal/abnormal . NRBC x10^3 (test code <0.01 See_Comment [Auto mated = 4685827781) message] The s y[employer] which generated this result transmitted reference range : 10*3/?L. The reference range was not used to interpret this result as normal/abnormal . GRAN MAT (NEUT) % 72.8 % (test code = 770-8) IMM GRAN % (test code 0.60 % = 2560120579) LYMPH % (test code = 18.4 % 736-9) MONO % (test code = 5.7 % 5905-5) EOS % (test code = 1.8 % 713-8) BASO % (test code = 0.7 % 706-2) GRAN MAT x10^3(ANC) 8.23 10*3/uL 1.99-6.95 H (test code = 6826820767) IMM GRAN x10^3 (test 0.07 10*3/uL 0.00-0.06 H code = 4542413462) LYMPH x10^3 (test code 2.08 10*3/uL 1.09-3.23 = 731-0) MONO x10^3 (test code 0.65 10*3/uL 0.36-1.02 = 742-7) EOS x10^3 (test code = 0.20 10*3/uL 0.06-0.53 711-2) BASO x10^3 (test code 0.08 10*3/uL 0.01-0.09 = 704-7) Lab Interpretation Abnormal (test code = 16253-5) [facility]17 06:03:38 Test Item Value Reference Range Interpretation Comments POCT GLU (test code = 9030280395) 75 mg/dL 70-110 Lab Interpretation (test code = Normal 66407-1) [facility]IT[facility] B6, [id number] 00:01:00 Test Item Value Reference Range Interpretation Comments VIT B6 (test code = 13.1 nmol/L 20.0-125.0 L INTERPRE TIVE 29574-0) INFORMATION: Vi tamin B6 (Pyridoxal 5-Phosphate) Pyridoxal 5'-phosphate me asured in a specimen collected follo wing an 8-hour or overnight fast accurately clara cates vitamin B6 nutritional sta tus. Non-fasting spe cimen concentration reflects recent vitamin intake. This test was develo ped and its perform ance characteristics determined by [facility]. I t has not been cleare d or approved by the [place] Food and Drug Administration. This test was perfor med in a CLIA certifie d laboratory and is intended for cl inical purposes.Perfor med By: [employer] [place] [address] [id number] Director: Namrata Klein MD Lab Interpretation Abnormal (test code = 53447-1) [facility] TIBIA FIBULA 2 VW [id number] 23:57:09 Tricompartmental knee joint osteoarthrosis.XR TIBIA FIBULA [...] No acute fracture or dislocation.IMPRESSIONTricompartmental knee joint osteoarthrosis.[facility] GLUCOSE (AUTOMATED) 2020-12-16 23:27:00 Test Item Value Reference Range Interpretation Comments POCT GLU (test code = 7438092857) 114 mg/dL 70-110 H Lab Interpretation (test code = Abnormal 23159-0) [facility] GLUCOSE (AUTOMATED)2020-12-16 20:12:00 Test Item Value Reference Range Interpretation Comments POCT GLU (test code = 7412157313) 105 mg/dL 70-110 Lab Interpretation (test code = Normal 91944-1) [facility] GLUCOSE (AUTOMATED)2020-12-16 14:44:00 Test Item Value Reference Range Interpretation Comments POCT GLU (test code = 8887132429) 153 mg/dL 70-110 H Lab Interpretation (test code = Abnormal 20538-2) [facility] METABOLIC PANEL (NA, K, CL, CO2, GLUCOSE, BUN, CREATININE, CA)2020-12-16 14:23:00 Test Item Value Reference Range Interpretation Comments NA (test code = 138 mmol/L 135-145 8526596174) K (test code = 3.4 mmol/L 3.5-5.0 L 5061998231) CL (test code = 100 mmol/L 98-108 5905621426) CO2 TOTAL (test code = 31 mmol/L 23-31 4492621223) AGAP (test code = 2-16 9709079417) BUN (test code = 11 mg/dL 7-23 5031114408) GLUCOSE (test code = 162 mg/dL 70-110 H 3623098558) CREATININE (test code = 0.64 mg/dL 0.60-1.25 4020546629) CALCIUM (test code = 8.9 mg/dL 8.6-10.6 0254615382) eGFR Calculation mL/min/1.73m2 (Non-) (test code = 6089952701) eGFR Calculation mL/min/1.73m2 () (test code = 8337349249) JAMES (test code = JAMES) Association of [...] tests). Lab Interpretation Abnormal (test code = 13348-9) [facility] WITH [id number] 14:05:00 Test Item Value Reference Range Interpretation [...] RDW-SD (test code = 45.4 fL 38.5-51.6 43674-2) RDW-CV (test code = 17.0 % 12.1-15.4 H 788-0) PLT (test code = See_Comment H [Automated 777-3) message] The sy stem which generated this result transmitted reference range : 150 - 328 10*3/ ?L. The reference r torito was not used to interpret this result as normal/abnormal . MPV (test code = 8.0 fL 9.8-13.0 L 35138-3) NRBC/100 WBC (test See_Comment [Automat ed code = 2426001170) message] The system which generated this result transmitted reference range : 0.0 - 10.0 /100 WBCs. The refer ence range was not u sed to interpret th is result as normal/abnormal . NRBC x10^3 (test code <0.01 See_Comment [Auto mated = 0307942420) message] The s ystem which generated this result transmitted reference range : 10*3/?L. The reference range was not used to interpret this result as normal/abnormal . GRAN MAT (NEUT) % 70.0 % (test code = 770-8) IMM GRAN % (test code 0.70 % = 1068701493) LYMPH % (test code = 20.5 % 736-9) MONO % (test code = 7.1 % 5905-5) EOS % (test code = 1.0 % 713-8) BASO % (test code = 0.7 % 706-2) GRAN MAT x10^3(ANC) 9.44 10*3/uL 1.99-6.95 H (test code = 4107138864) IMM GRAN x10^3 (test 0.09 10*3/uL 0.00-0.06 H code = 9590060522) LYMPH x10^3 (test code 2.76 10*3/uL 1.09-3.23 = 731-0) MONO x10^3 (test code 0.96 10*3/uL 0.36-1.02 = 742-7) EOS x10^3 (test code = 0.13 10*3/uL 0.06-0.53 711-2) BASO x10^3 (test code 0.10 10*3/uL 0.01-0.09 H = 704-7) Lab Interpretation Abnormal (test code = 77331-5) [facility] - Peripheral # [id number] 13:01:00 Test Item Value Reference Range Interpretation Comments Blood Culture-Aerobic No organisms No growth Previo us (test code = 67978-3) isolated prelim inary verified result was Culture In Progress on 12/11/2020 at 100 1 CSTPrevious preliminary verified result was No growth a t 24 hours on 12/12/2020 at 070 1 CSTPrevious preliminary verified result was No growth a t 48 hours on 12/13/2020 at 070 1 CSTPrevious preliminary verified result was No growth a t 72 hours on 12/14/2020 at 070 1 [employer] Blood No organisms No growth Previous Culture-Anaerobic isolated preliminar y (test code = 84396-0) verifi ed result was Culture In Progress on 12/11/2020 at 100 1 CSTPrevious preliminary verified result was No growth a t 24 hours on 12/12/2020 at 070 1 CSTPrevious preliminary verified result was No growth a t 48 hours on 12/13/2020 at 070 1 CSTPrevious preliminary verified result was No growth a t 72 hours on 12/14/2020 at 070 1 [employer] Lab Interpretation Normal (test code = 90446-6) [facility] # [id number] 13:01:00 Test Item Value Reference Range Interpretation Comments Blood Culture-Aerobic No organisms No growth Previo us (test code = 75183-6) isolated prelim inary verified result was Culture In Progress on 12/11/2020 at 100 1 CSTPrevious preliminary verified result was No growth a t 24 hours on 12/12/2020 at 070 1 CSTPrevious preliminary verified result was No growth a t 48 hours on 12/13/2020 at 070 1 CSTPrevious preliminary verified result was No growth a t 72 hours on 12/14/2020 at 070 1 [employer] Blood No organisms No growth Previous Culture-Anaerobic isolated preliminar y (test code = 20181-1) verifi ed result was Culture In Progress on 12/11/2020 at 100 1 CSTPrevious preliminary verified result was No growth a t 24 hours on 12/12/2020 at 070 1 CSTPrevious preliminary verified result was No growth a t 48 hours on 12/13/2020 at 070 1 CSTPrevious preliminary verified result was No growth a t 72 hours on 12/14/2020 at 070 1 [employer] Lab Interpretation Normal (test code = 88149-9) [facility] GLUCOSE (AUTOMATED)2020-12-16 04:01:00 Test Item Value Reference Range Interpretation Comments POCT GLU (test code = 1313641540) 156 mg/dL 70-110 H Lab Interpretation (test code = Abnormal 78904-9) [facility] GLUCOSE (AUTOMATED)2020-12-16 00:24:00 Test Item Value Reference Range Interpretation Comments POCT GLU (test code = 0120664104) 115 mg/dL 70-110 H Lab Interpretation (test code = Abnormal 50692-9) [facility] CHEST PULMONARY [id number] 23:34:55No pulmonary emboli. No interval change in [...] of intra and extrahepatic biliary du ctal dilatation.[facility] GLUCOSE (AUTOMATED) 2020-12-15 19:28:00 Test Item Value Reference Range Interpretation Comments POCT GLU (test code = 9566475173) 140 mg/dL 70-110 H Lab Interpretation (test code = Abnormal 12885-9) [facility]2021-[facility]-05 15:26:00 Test Item Value Reference Range Interpretation Comments MAGNESIUM (test code = 4826789827) 2.2 mg/dL 1.7-2.4 Lab Interpretation (test code = Normal 45395-4) [facility] GLU[facility]SE (AUTOMATED)2020-12-15 15:15:00 Test Item Value Reference Range Interpretation Comments POCT GLU (test code = 1061068879) 181 mg/dL 70-110 H Lab Interpretation (test code = Abnormal 93421-2) [facility] (NA, K, CL, CO2, GLUCOSE, BUN, CREATININE, CA)2020-12-15 13:07:00 Test Item Value Reference Range Interpretation Comments NA (test code = 136 mmol/L 135-145 1674527100) K (test code = 3.6 mmol/L 3.5-5.0 2223736817) CL (test code = 96 mmol/L 98-108 L 6022082051) CO2 TOTAL (test code = 29 mmol/L 23-31 6691632783) AGAP (test code = 2-16 1620244678) BUN (test code = 12 mg/dL 7-23 4044966862) GLUCOSE (test code = 183 mg/dL 70-110 H 9883856607) CREATININE (test code = 0.70 mg/dL 0.60-1.25 8114682116) CALCIUM (test code = 9.2 mg/dL 8.6-10.6 9026226019) eGFR Calculation mL/min/1.73m2 (Non-) (test code = 8803399645) eGFR Calculation mL/min/1.73m2 () (test code = 5440599072) JAMES (test code = JAMES) Association of [...] tests). Lab Interpretation Abnormal (test code = 50939-8) [facility] WITH [id number] 12:32:00 Test Item Value Reference Range Interpretation Comments WBC (test code = See_Comment H [Automated 9990-2) message] The system which generated this result transmit ronan reference range : 4.20 - 10.70 10*3/?L. The reference range was not used to interpret this result as normal/abnormal . RBC (test code = See_Comment H [Automated 489-8) message] The system which generated this result [...] RDW-SD (test code = 44.4 fL 38.5-51.6 80119-2) RDW-CV (test code = 17.7 % 12.1-15.4 H 788-0) PLT (test code = See_Comment H [Automated 777-3) message] The system which generated this result transmit ronan reference range : 150 - 328 10*3/ ?L. The reference range was not u sed to interpret th is result as normal/abnormal . MPV (test code = 8.1 fL 9.8-13.0 L 95882-3) NRBC/100 WBC (test See_Comment [Automat ed code = 0359189161) message] The system which generated this result transmit ronan reference range : 0.0 - 10.0 /100 WBCs. The reference range was not used to interpret this result as normal/abnormal . NRBC x10^3 (test code <0.01 See_Comment [Auto mated = 3396939617) message] The system which generated this result transmit ronan reference range : 10*3/?L. The reference range was not used to interpret this result as normal/abnormal . GRAN MAT (NEUT) % 74.5 % (test code = 770-8) IMM GRAN % (test code 0.70 % = 9423554134) LYMPH % (test code = 17.4 % 736-9) MONO % (test code = 6.8 % 5905-5) EOS % (test code = 0.2 % 713-8) BASO % (test code = 0.4 % 706-2) GRAN MAT x10^3(ANC) 11.99 10*3/uL 1.99-6.95 H (test code = 9481506553) IMM GRAN x10^3 (test 0.11 10*3/uL 0.00-0.06 H code = 7263642013) LYMPH x10^3 (test code 2.80 10*3/uL 1.09-3.23 = 731-0) MONO x10^3 (test code 1.10 10*3/uL 0.36-1.02 H = 742-7) EOS x10^3 (test code = 0.03 10*3/uL 0.06-0.53 L 711-2) BASO x10^3 (test code 0.06 10*3/uL 0.01-0.09 = 704-7) Lab Interpretation Abnormal (test code = 16534-9) [facility] GLUCOSE (AUTOMATED)2020-12-15 04:16:00 Test Item Value Reference Range Interpretation Comments POCT GLU (test code = 0400310380) 200 mg/dL 70-110 H Lab Interpretation (test code = Abnormal 96799-5) [facility]IT[facility]1 (THIAMINE), WHOLE [id number] 00:30:00 Test Item Value Reference Range Interpretation Comments Vitamin B1, Whole 136 nmol/L 70-180 INTERPRETI VE INFORMATION: Blood (test code = Vitamin B 1, Whole Blood 00973-6) This assay júnior ures the concentration o f thiamine diphosphate (TD P), the primary active form of vitamin B1. Nick roximately 90 percent of v itamin B1 present in whol e blood is TDP. Thiamine a nd thiamine monoph osphate, which comprise the remaining 10 pe rcent, are not measured. T his test was developed a nd its performance characteristics determined by [facility]. I t has not been cleared or approved by the [place] Food and Drug Administration. This test was performed i n a CLIA certified labor atory and is intended for clinical purposes.Perfor med By: [facility] [place] [address] [id number] aboratory Director: Namrata Klein MD [facility] GLUCOSE (AUTOMATED)2020-12-14 23:35:00 Test Item Value Reference Range Interpretation Comments POCT GLU (test code = 4043173184) 151 mg/dL 70-110 H Lab Interpretation (test code = Abnormal 52887-0) [facility] GLUCOSE (AUTOMATED)2020-12-14 19:19:00 Test Item Value Reference Range Interpretation Comments POCT GLU (test code = 3080199763) 193 mg/dL 70-110 H Lab Interpretation (test code = Abnormal 30918-1) [facility] GLUCOSE (AUTOMATED)2020-12-14 15:22:00 Test Item Value Reference Range Interpretation Comments POCT GLU (test code = 2263541033) 221 mg/dL 70-110 H Lab Interpretation (test code = Abnormal 53247-8) [facility] GLUCOSE (AUTOMATED)2020-12-14 02:37:00 Test Item Value Reference Range Interpretation Comments POCT GLU (test code = 8743386276) 210 mg/dL 70-110 H Lab Interpretation (test code = Abnormal 48013-0) [facility] GLUCOSE (AUTOMATED)2020-12-13 23:33:00 Test Item Value Reference Range Interpretation Comments POCT GLU (test code = 4950808792) 182 mg/dL 70-110 H Lab Interpretation (test code = Abnormal 40251-0) [facility] GLUCOSE (AUTOMATED)2020-12-13 18:09:00 Test Item Value Reference Range Interpretation Comments POCT GLU (test code = 5752362020) 150 mg/dL 70-110 H Lab Interpretation (test code = Abnormal 42174-4) [facility] METABOLIC PANEL (NA, K, CL, CO2, GLUCOSE, BUN, CREATININE, CA)2020-12-13 16:27:00 Test Item Value Reference Range Interpretation Comments NA (test code = 136 mmol/L 135-145 9220135951) K (test code = 3.7 mmol/L 3.5-5.0 7945660693) CL (test code = 96 mmol/L 98-108 L 8146768249) CO2 TOTAL (test code = 29 mmol/L 23-31 2649052207) AGAP (test code = 2-16 0364372294) BUN (test code = 6 mg/dL 7-23 L 7976086271) GLUCOSE (test code = 212 mg/dL 70-110 H 5644784495) CREATININE (test code = 0.61 mg/dL 0.60-1.25 3656732713) CALCIUM (test code = 9.5 mg/dL 8.6-10.6 9442834620) eGFR Calculation mL/min/1.73m2 (Non-) (test code = 2553209173) eGFR Calculation mL/min/1.73m2 () (test code = 9106663397) JAMES (test code = JAMES) Association of [...] tests). Lab Interpretation Abnormal (test code = 79423-5) [facility] WITH [id number] 16:10:00 Test Item Value Reference Range Interpretation Comments WBC (test code = See_Comment H [Automated 5290-2) message] The sy stem which generated this result transmitted reference range : 4.20 - 10.70 10*3/?L. The reference range was not used to interpret this result as normal/abnormal . RBC (test code = See_Comment H [Automated 209-8) message] The sy stem which generated this [...] RDW-SD (test code = 43.3 fL 38.5-51.6 11286-2) RDW-CV (test code = 16.2 % 12.1-15.4 H 788-0) PLT (test code = See_Comment H [Automated 777-3) message] The sy stem which generated this result transmitted reference range : 150 - 328 10*3/ ?L. The reference r torito was not used to interpret this result as normal/abnormal . MPV (test code = 8.2 fL 9.8-13.0 L 49524-3) NRBC/100 WBC (test See_Comment [Automat ed code = 0145908542) message] The system which generated this result transmitted reference range : 0.0 - 10.0 /100 WBCs. The refer ence range was not u sed to interpret th is result as normal/abnormal . NRBC x10^3 (test code <0.01 See_Comment [Auto mated = 8705326930) message] The s ystem which generated this result transmitted reference range : 10*3/?L. The reference range was not used to interpret this result as normal/abnormal . GRAN MAT (NEUT) % 86.2 % (test code = 770-8) IMM GRAN % (test code 0.70 % = 3805107975) LYMPH % (test code = 10.2 % 736-9) MONO % (test code = 2.5 % 5905-5) EOS % (test code = 0.1 % 713-8) BASO % (test code = 0.3 % 706-2) GRAN MAT x10^3(ANC) 9.61 10*3/uL 1.99-6.95 H (test code = 2414318397) IMM GRAN x10^3 (test 0.08 10*3/uL 0.00-0.06 H code = 2430962101) LYMPH x10^3 (test code 1.14 10*3/uL 1.09-3.23 = 731-0) MONO x10^3 (test code 0.28 10*3/uL 0.36-1.02 L = 742-7) EOS x10^3 (test code = <0.03 0.06-0.53 L 711-2) BASO x10^3 (test code 0.03 10*3/uL 0.01-0.09 = 704-7) Lab Interpretation Abnormal (test code = 45792-0) [facility]2020-12-13 14:16:00 Test Item Value Reference Range Interpretation Comments POCT GLU (test code = 8564877293) 236 mg/dL 70-110 H Lab Interpretation (test code = Abnormal 13692-2) [facility] COVID [id number] 04:58:00COVID DMT InterpretationInterpretation/Recommendations: Molecular NAAT Tests for [...] COVID-19 testing the patient has had at [facility], including molecular NAAT testing (more commonly known as PCR testing and Rapid ID Now testing) and antibody testing. It does not take into account any testing that a patient has had outside of the [facility] medical record. [facility] LABORATORY SERVICESCOVID Resu cewTWDJ-NlU-9 Rapid ID NOW (no units) ? ? Date ? Value ? 12/11/2020 ? Not Detected ? ? ? 11/16/2020 ? Not Detected ? ? ? 08/21/2020 ?Not Detected ? [facility]UnGeneral [facility] GLU[facility] ([facility] 2020-12-13 03:11:00 Test Item Value Reference Range Interpretation Comments POCT GLU (test code = 8665145384) 171 mg/dL 70-110 H Lab Interpretation (test code = Abnormal 30794-8) [facility] GLUCOSE (AUTOMATED)2020-12-13 00:00:00 Test Item Value Reference Range Interpretation Comments POCT GLU (test code = 6781234097) 118 mg/dL 70-110 H Lab Interpretation (test code = Abnormal 26505-3) [facility] GLUCOSE (AUTOMATED)2020-12-12 20:29:00 Test Item Value Reference Range Interpretation Comments POCT GLU (test code = 4008573142) 173 mg/dL 70-110 H Lab Interpretation (test code = Abnormal 30047-1) [facility]BD[facility]EN [id number] 19:56:17 1. ?Hepatic steatosis. However, limited evaluation [...] main portal veinwasevaluated with color Doppler imaging. Upper And Bottom Lacer Hand images were obtainedfor the record. COMPARISON: Ultrasound [...] normal where visualized. SPLEEN:No images were obtained. [facility], Radiant Results Inft User - 12/12/2020 1:57 PM CSTEXAM: US ABDOMEN LIMITEDHISTORY: 70 years-old male with RUQ ultrasound to assess for common bileduct dilation .TECHNIQUE: Limited abdominal ultrasound focused on the liver, biliarysystem, pancreas, and spleen was performed. The main portal vein wasevaluated with color Doppler imaging. Upper And Bottom Lacer Hand images were obtainedfor the record.COMPARISON: Ultrasound abdomen [...] this study and agree with the abovereport. [facility]2020-12-12 19:24:00 Test Item Value Reference Range Interpretation Comments POCT GLU (test code = 8294829241) 230 mg/dL 70-110 H Lab Interpretation (test code = Abnormal 60149-1) [facility] CHEST 1 [id number] 15:16:46 Low lung volumes with mild perihilar [...] or pneumothorax.Preliminary Report Dictated by Resident: Gabrielle Miller, MD., have reviewed thisstudy and agree with theabove report.[facility]2020-12-12 14:34:00 Test Item Value Reference Range Interpretation Comments POCT GLU (test code = 6321283205) 225 mg/dL 70-110 H Lab Interpretation (test code = Abnormal 06067-2) [facility] [id number] 13:28:00 Test Item Value Reference Range Interpretation Comments URINE CULTURE (test < 10,000 CFU/mL mixed code = 630-4) aerobic organisms - suggests endogenous microbial contamination [facility] (NA, K, CL, CO2, GLUCOSE, BUN, CREATININE, CA)2020-12-12 10:05:00 Test Item Value Reference Range Interpretation Comments NA (test code = 136 mmol/L 135-145 0597988454) K (test code = 3.5 mmol/L 3.5-5.0 2294231430) CL (test code = 100 mmol/L 98-108 9810865641) CO2 TOTAL (test code = 31 mmol/L 23-31 3688754892) AGAP (test code = 2-16 5220758652) BUN (test code = 7 mg/dL 7-23 1169377856) GLUCOSE (test code = 259 mg/dL 70-110 H 0862198237) CREATININE (test code = 0.63 mg/dL 0.60-1.25 6589703122) CALCIUM (test code = 8.5 mg/dL 8.6-10.6 L 8249166801) eGFR Calculation mL/min/1.73m2 (Non-) (test code = 0755234227) eGFR Calculation mL/min/1.73m2 () (test code = 5924039699) JAMES (test code = JAMES) Association of [...] tests). Lab Interpretation Abnormal (test code = 16150-2) [facility] [id number] 10:05:00 Test Item Value Reference Range Interpretation Comments MAGNESIUM (test code = 2119222367) 1.9 mg/dL 1.7-2.4 Lab Interpretation (test code = Normal 36443-8) [facility] with Nisjdohlylif3345-80-20 09:48:00 Test Item Value Reference Range Interpretation Comments WBC (test code = See_Comment [Automated 2207-2) message] The sy stem which generated this result transmitted reference range : 4.20 - 10.70 10*3/?L. The reference range was not used to interpret this result as normal/abnormal . RBC (test code = See_Comment [Automated 935-8) message] The sy stem which generated this [...] RDW-SD (test code = 46.0 fL 38.5-51.6 52202-0) RDW-CV (test code = 16.1 % 12.1-15.4 H 788-0) PLT (test code = See_Comment H [Automated 777-3) message] The sy stem which generated this result transmitted reference range : 150 - 328 10*3/ ?L. The reference r torito was not used to interpret this result as normal/abnormal . MPV (test code = 8.6 fL 9.8-13.0 L 37069-9) NRBC/100 WBC (test See_Comment [Automat ed code = 9759210174) message] The system which generated this result transmitted reference range : 0.0 - 10.0 /100 WBCs. The refer ence range was not u sed to interpret th is result as normal/abnormal . NRBC x10^3 (test code <0.01 See_Comment [Auto mated = 0927270200) message] The s ystem which generated this result transmitted reference range : 10*3/?L. The reference range was not used to interpret this result as normal/abnormal . GRAN MAT (NEUT) % 70.2 % (test code = 770-8) IMM GRAN % (test code 0.30 % = 1612859665) LYMPH % (test code = 18.8 % 736-9) MONO % (test code = 5.0 % 5905-5) EOS % (test code = 5.2 % 713-8) BASO % (test code = 0.5 % 706-2) GRAN MAT x10^3(ANC) 6.05 10*3/uL 1.99-6.95 (test code = 1737199121) IMM GRAN x10^3 (test 0.03 10*3/uL 0.00-0.06 code = 1116780694) LYMPH x10^3 (test code 1.62 10*3/uL 1.09-3.23 = 731-0) MONO x10^3 (test code 0.43 10*3/uL 0.36-1.02 = 742-7) EOS x10^3 (test code = 0.45 10*3/uL 0.06-0.53 711-2) BASO x10^3 (test code 0.04 10*3/uL 0.01-0.09 = 704-7) Lab Interpretation Abnormal (test code = 37515-1) [facility] GLUCOSE (AUTOMATED)2020-12-12 03:42:00 Test Item Value Reference Range Interpretation Comments POCT GLU (test code = 196 mg/dL 70-110 H Notifi ed Provider [id number]) Lab Interpretation (test Abnormal code = 45172-3) [facility]2021-[facility] 02:24:00 Test Item Value Reference Range Interpretation Comments FOLATE SER (test code = 2223109079) 5.8 ng/mL 3.0-20.0 Lab Interpretation (test code = Normal 88894-1) [facility] CampusVITAMIN B12, [id number] 00:55:00 Test Item Value Reference Range Interpretation Comments VIT B12 (test code = 844 pg/mL 240-930 1063078882) JAMES (test code = JAMES) Biotin has been reported to cause a positive bias, interpret results relative to patient's use of biotin. Lab Interpretation (test Normal code = 76705-2) [facility] GLUCOSE (AUTOMATED)2020-12-12 00:14:00 Test Item Value Reference Range Interpretation Comments POCT GLU (test code = 9492598859) 164 mg/dL 70-110 H Lab Interpretation (test code = Abnormal 10805-9) [facility] CampusCREATINE [id number] 23:42:00 Test Item Value Reference Range Interpretation Comments CK (test code = 4943203116) <20 33-194 L Lab Interpretation (test code = Abnormal 64401-5) [facility] CampusTHYROID STIMULATING [id number] 23:17:00 Test Item Value Reference Range Interpretation Comments TSH (test code = See_Comment Biotin has been 7396236478) reported to cau se a negative bias, interpret resul ts relative to pat ient's use of biotin. [Automated mess age] The system [employer] generated this result transmitted ref erence range: 0.45 - 4 .70 mIU/L. The refe rence range was not u sed to interpret this result as normal/abnor mal. Lab Interpretation (test Normal code = 92957-3) [facility] CampusXR HIPS 3 VW [id number] 21:41:53No appreciable fracture lines. RL: 6200 ICAL [...] No osseous erosions.IMPRESSIONNo appreciable fracture lines.RL: 6200 [facility]PROCALCITONIN2021-[facility]-01 20:00:00 Test Item Value Reference Range Interpretation Comments Procalcitonin (test 0.13 ng/mL <0.07 H code = 6558888683) JAMES (test code = JAMES) INTERPRETATION OF [...] lung abscess/empyema. For further information please refer to:[email or web address] Lab Interpretation Abnormal (test code = 03289-3) [facility]PO[facility]SE (AUT[facility]ATED)2020-12-11 19:07:00 Test Item Value Reference Range Interpretation Comments POCT GLU (test code = 7002490200) 274 mg/dL 70-110 H Lab Interpretation (test code = Abnormal 28326-8) [facility] CampusMAGNESIUM2021-03-01 18:31:00 Test Item Value Reference Range Interpretation Comments MAGNESIUM (test code = 2763106547) 1.9 mg/dL 1.7-2.4 Lab Interpretation (test code = Normal 58235-8) [facility] CampusFERRITIN [id number] 18:31:00 Test Item Value Reference Range Interpretation Comments FERRITIN (test code = 178.0 ng/mL 18.0-464.0 0995407999) JAMES (test code = JAMES) Biotin has been reported to cause a negative bias, interpret results relative to patient's use of biotin. Lab Interpretation (test Normal code = 87114-6) [facility] CampusCT HEAD WO [id number] 14:36:47 No acute intracranial abnormality. Dilated ventricles [...] appro priateclinical setting.Preliminary Report Dictated by Resident: Katelyn Cox MD., have reviewed this study and agree with the abovereport.[facility] CampusURINALYSIS2021-03-01 14:28:00 Test Item Value Reference Range Interpretation Comments APPEARANCE (test code = Clear Clear 8925538349) COLOR (test code = Yellow Yellow 1438312839) PH (test code = 4.8-8.0 9345448296) SP GRAVITY (test code = 1.003-1.030 6970348711) GLU U QUAL (test code = 500 mg/dL Normal A 7599122326) BLOOD (test code = Negative Negative 1439620421) KETONES (test code = 5 mg/dL Negative A 6548138844) PROTEIN (test code = Negative Negative 2887-8) UROBILIN (test code = Normal Normal 3977996840) BILIRUBIN (test code = Negative Negative 6357554883) NITRITE (test code = Negative Negative 4253825928) LEUK RYAN (test code = Negative Negative 5137370768) RBC/HPF (test code = See_Comment [Autom ated message] 7193844672) The system [employer] generated this result transmit ronan reference range : 0 - 3 HPF. The refe rence range was not u sed to interpret th is result as normal/abnormal . WBC/HPF (test code = See_Comment [Autom ated message] 8621656007) The system [employer] generated this result transmit ronan reference range : 0 - 5 HPF. The refe rence range was not u sed to interpret th is result as normal/abnormal . BACTERIA (test code = Negative Negative 1847805496) MUCOUS (test code = Slight Negative LPF A 0679319190) SQ EPITH (test code = HPF 7086567532) Lab Interpretation (test Abnormal code = 27354-1) [facility] CampusCOVID-19 (ID NOW RAPID TESTING)2020-12-11 13:10:00 Test Item Value Reference Range Interpretation Comments SARS-CoV-2 Rapid ID NOW Not Detected Not Detected (test code = 92892-3) JAMES (test code = JAMES) ID NOW COVID-19 Assay is an isothermal nucleic acid amplification test intended for the qualitative detection of nucleic acid from SARS-CoV-2 viral RNA in nasopharyngeal (CLINICAL INTERVIEWER) specimens. It is used under Emergency Use [...] indicated. Lab Interpretation Normal (test code = 70533-1) [facility]. METABOLIC PANEL (67380)2020-12-11 12:29:00 Test Item Value Reference Range Interpretation Comments NA (test code = 136 mmol/L 135-145 9887158337) K (test code = 3.5 mmol/L 3.5-5.0 7471892757) CL (test code = 95 mmol/L 98-108 L 7781840786) CO2 TOTAL (test code = 35 mmol/L 23-31 H 7329637698) AGAP (test code = 2-16 2854331995) BUN (test code = 9 mg/dL 7-23 4353534825) GLUCOSE (test code = 329 mg/dL 70-110 H 1120519940) CREATININE (test code = 0.72 mg/dL 0.60-1.25 4875614697) TOTAL BILI (test code = 0.6 mg/dL 0.1-1.3 8791036793) CALCIUM (test code = 9.0 mg/dL 8.6-10.6 0219230894) T PROTEIN (test code = 6.8 g/dL 6.3-8.2 6721129968) ALBUMIN (test code = 3.8 g/dL 3.5-5.0 4160190183) ALK PHOS (test code = 288 U/L 34-122 H 3907050251) ALTv (test code = 46 U/L 5-50 2-6) AST(SGOT) (test code = 38 U/L 13-40 1575143386) eGFR Calculation mL/min/1.73m2 (Non-) (test code = 6089461543) eGFR Calculation mL/min/1.73m2 () (test code = 9743441655) JAMES (test code = JAMES) Association of [...] tests). Lab Interpretation Abnormal (test code = 95949-2) [facility] CampusLactic Acid Whole [id number] 12:23:00 Test Item Value Reference Range Interpretation Comments LACTIC ACID (test code = 2.09 mmol/L 0.50-2.20 9723816968) Lab Interpretation (test code = Normal 83250-0) [facility] CampusCB WITH [id number] 12:17:00 Test Item Value Reference Range Interpretation [...] RDW-SD (test code = 44.9 fL 38.5-51.6 44306-5) RDW-CV (test code = 15.9 % 12.1-15.4 H 788-0) PLT (test code = See_Comment H [Automated 777-3) message] The sy stem which generated this result transmitted reference range : 150 - 328 10*3/ ?L. The reference r torito was not used to interpret this result as normal/abnormal . MPV (test code = 8.3 fL 9.8-13.0 L 80365-8) NRBC/100 WBC (test See_Comment [Automat ed code = 3778017538) message] The system which generated this result transmitted reference range : 0.0 - 10.0 /100 WBCs. The refer ence range was not u sed to interpret th is result as normal/abnormal . NRBC x10^3 (test code <0.01 See_Comment [Auto mated = 1760690038) message] The s ystem which generated this result transmitted reference range : 10*3/?L. The reference range was not used to interpret this result as normal/abnormal . GRAN MAT (NEUT) % 77.9 % (test code = 770-8) IMM GRAN % (test code 0.50 % = 1405416450) LYMPH % (test code = 12.2 % 736-9) MONO % (test code = 5.2 % 5905-5) EOS % (test code = 3.7 % 713-8) BASO % (test code = 0.5 % 706-2) GRAN MAT x10^3(ANC) 9.57 10*3/uL 1.99-6.95 H (test code = 4479385304) IMM GRAN x10^3 (test 0.06 10*3/uL 0.00-0.06 code = 5055800822) LYMPH x10^3 (test code 1.50 10*3/uL 1.09-3.23 = 731-0) MONO x10^3 (test code 0.64 10*3/uL 0.36-1.02 = 742-7) EOS x10^3 (test code = 0.46 10*3/uL 0.06-0.53 711-2) BASO x10^3 (test code 0.06 10*3/uL 0.01-0.09 = 704-7) Lab Interpretation Abnormal (test code = 67462-9) [facility] CampusLAB ONLY COVID HMBWTXRHATXLGE1562-04-17 18:43:00COVID DMT InterpretationInterpretation/Recommendations: Molecular NAAT Test Results [...] a nasopharyngeal sample, there is approximately a aaw-ln-coptb chance that the patient was infected and [...] based upon aggregate data pooled from the [facility] medical record including both current and prior COVID-19 related testing results for the following tests offered at our institution:A. Tests for the Identification of SARS-CoV-2 RNA:SARS-CoV-2 PCR assays including [place] Aptima, [place] Fusion, Barrett RealTime, and [employer] Xpert Xpress. SARS-CoV-2 Rapid ID NOW by the ID NOW assay. ? B. Tests for the Identification of SARS-CoV-2 Antibodies: Chemiluminescent immunoassays including Access SARS-CoV-2 IgM (DXI 600), [employer] Solutions[employer] Riqx-TAKO-AgS-2 IgG (Vitros 5600 and Vitros 3600), and Barrett SARS-CoV-2 IgG (DIE SINKER APPRENTICE I System). These interpretation comments assume that only the above testing was utilized and that the approved acceptable specimen type(s) were used for a given test. These interpretations are autopopulated into [employer] based on computerized algorithms matching an interpretation code number to the patient's set of test results. While a clinical pathologist evaluates the combinations for clinical accuracy, clinical correlation is recommended as it may not take into account very remote prior testing. Furthermore, it does not consider testing a patient may have had outside of the [facility] system. Additionally, it should be noted that the computerized algorithm treats the results for PCR testing and Rapid ID NOW testing (also PCR) synonymously, and thus, refers to both testing methodologies as PCR tests. Given that the sensitivity of [facility]'s Rapid ID NOW testingplatform is analogous to [...] panel may be beneficial in this setting. [facility] LABORATORY SERVICESCOVID IdibgprSWNU-AyF-1 Rapid ID NOW (no units) ? ? Date ? Value ? 08/21/2020 ? Not Detected ? [facility] SERVICESUnGeneral acute hospital GLUCOSE (AUTOMATED)2020-08-23 18:25:00 Test Item Value Reference Range Interpretation Comments POCT GLU (test code = 3333796438) 297 mg/dL 70-110 H Lab Interpretation (test code = Abnormal 62883-3) [facility] GLUCOSE (AUTOMATED)2020-08-23 14:25:00 Test Item Value Reference Range Interpretation Comments POCT GLU (test code = 0418076698) 181 mg/dL 70-110 H Lab Interpretation (test code = Abnormal 62002-5) [facility] CampusBasic Metabolic Panel (NA, K, CL, CO2, GLUCOSE, BUN, CREATININE, CA)2020-08-23 11:45:00 Test Item Value Reference Range Interpretation Comments NA (test code = 132 mmol/L 135-145 L 4607161902) K (test code = 4.0 mmol/L 3.5-5 8153209791) CL (test code = 96 mmol/L 98-108 L 5661932273) CO2 TOTAL (test code = 33 mmol/L 23-31 H 0075599783) AGAP (test code = 2-16 1209750055) BUN (test code = 9 mg/dL 7-23 7403035651) GLUCOSE (test code = 176 mg/dL 70-110 H 6849551891) CREATININE (test code = 0.66 mg/dL 0.6-1.25 8538542769) CALCIUM (test code = 8.5 mg/dL 8.6-10.6 L 0704582469) eGFR Calculation mL/min/1.73m2 (Non-) (test code = 2794868413) eGFR Calculation mL/min/1.73m2 () (test code = 7537471576) JAMES (test code = JAMES) Association of [...] tests). Lab Interpretation Abnormal (test code = 23547-8) [facility] CampusMagnesium [id number] 11:45:00 Test Item Value Reference Range Interpretation Comments MAGNESIUM (test code = 6230785131) 2.0 mg/dL 1.7-2.4 Lab Interpretation (test code = Normal 27519-0) [facility] CampusCB with Lpxnxhluoujl5804-76-87 11:38:00 Test Item Value Reference Range Interpretation [...] RDW-SD (test code = 41.8 fL 38.5-51.6 61012-6) RDW-CV (test code = 14.3 % 12.1-15.4 788-0) PLT (test code = See_Comment H [Automated 777-3) message] The sy stem which generated this result transmitted reference range : 150 - 328 10*3/ ?L. The reference r torito was not used to interpret this result as normal/abnormal . MPV (test code = 8.0 fL 9.8-13 L 77020-5) NRBC/100 WBC (test See_Comment [Automat ed code = 0152473964) message] The system which generated this result transmitted reference range : 0.0 - 10.0 /100 WBCs. The refer ence range was not u sed to interpret th is result as normal/abnormal . NRBC x10^3 (test code <0.01 See_Comment [Auto mated = 8215244554) message] The s ystem which generated this result transmitted reference range : 10*3/?L. The reference range was not used to interpret this result as normal/abnormal . GRAN MAT (NEUT) % 61.5 % (test code = 770-8) IMM GRAN % (test code 2.00 % = 7171568131) LYMPH % (test code = 25.5 % 736-9) MONO % (test code = 6.3 % 5905-5) EOS % (test code = 3.7 % 713-8) BASO % (test code = 1.0 % 706-2) GRAN MAT x10^3(ANC) 5.29 10*3/uL 1.99-6.95 (test code = 8871050128) IMM GRAN x10^3 (test 0.17 10*3/uL 0-0.06 H code = 7478566457) LYMPH x10^3 (test code 2.19 10*3/uL 1.09-3.23 = 731-0) MONO x10^3 (test code 0.54 10*3/uL 0.36-1.02 = 742-7) EOS x10^3 (test code = 0.32 10*3/uL 0.06-0.53 711-2) BASO x10^3 (test code 0.09 10*3/uL 0.01-0.09 = 704-7) Lab Interpretation Abnormal (test code = 83189-7) [facility] GLUCOSE (AUTOMATED)2020-08-23 10:22:00 Test Item Value Reference Range Interpretation Comments POCT GLU (test code = 7319429772) 164 mg/dL 70-110 H Lab Interpretation (test code = Abnormal 04651-2) [facility] GLUCOSE (AUTOMATED)2020-08-23 05:56:00 Test Item Value Reference Range Interpretation Comments POCT GLU (test code = 6477543751) 242 mg/dL 70-110 H Lab Interpretation (test code = Abnormal 90076-1) [facility] GLUCOSE (AUTOMATED)2020-08-23 03:02:00 Test Item Value Reference Range Interpretation Comments POCT GLU (test code = 8220363919) 210 mg/dL 70-110 H Lab Interpretation (test code = Abnormal 48906-1) [facility] GLUCOSE (AUTOMATED)2020-08-22 23:40:00 Test Item Value Reference Range Interpretation Comments POCT GLU (test code = 8216246187) 267 mg/dL 70-110 H Lab Interpretation (test code = Abnormal 27557-8) [facility] GLUCOSE (AUTOMATED)2020-08-22 19:08:00 Test Item Value Reference Range Interpretation Comments POCT GLU (test code = 6269814082) 191 mg/dL 70-110 H Lab Interpretation (test code = Abnormal 20493-6) [facility] GLUCOSE (AUTOMATED)2020-08-22 13:50:00 Test Item Value Reference Range Interpretation Comments POCT GLU (test code = 3932784985) 174 mg/dL 70-110 H Lab Interpretation (test code = Abnormal 90460-4) [facility] CampusURINE [id number] 12:59:00 Test Item Value Reference Range Interpretation Comments URINE CULTURE (test No aerobic growth (< code = 630-4) 1000 CFU/mL) [facility] with Aqgqichhgapi4216-23-93 11:28:00 Test Item Value Reference Range Interpretation Comments WBC (test code = See_Comment [Automated 6690-2) message] The sy stem which generated this result transmitted reference range : 4.20 - 10.70 10*3/?L. The reference range was not used to interpret this result as normal/abnormal . RBC (test code = See_Comment L [Automated 269-8) message] The sy stem which generated this [...] RDW-SD (test code = 42.5 fL 38.5-51.6 61201-1) RDW-CV (test code = 14.5 % 12.1-15.4 788-0) PLT (test code = See_Comment H [Automated 777-3) message] The sy stem which generated this result transmitted reference range : 150 - 328 10*3/ ?L. The reference r torito was not used to interpret this result as normal/abnormal . MPV (test code = 8.0 fL 9.8-13 L 10195-4) NRBC/100 WBC (test See_Comment [Automat ed code = 1146880691) message] The system which generated this result transmitted reference range : 0.0 - 10.0 /100 WBCs. The refer ence range was not u sed to interpret th is result as normal/abnormal . NRBC x10^3 (test code <0.01 See_Comment [Auto mated = 1530628209) message] The s ystem which generated this result transmitted reference range : 10*3/?L. The reference range was not used to interpret this result as normal/abnormal . GRAN MAT (NEUT) % 69.1 % (test code = 770-8) IMM GRAN % (test code 2.20 % = 6222849197) LYMPH % (test code = 20.9 % 736-9) MONO % (test code = 5.8 % 5905-5) EOS % (test code = 1.0 % 713-8) BASO % (test code = 1.0 % 706-2) GRAN MAT x10^3(ANC) 6.51 10*3/uL 1.99-6.95 (test code = 1209303422) IMM GRAN x10^3 (test 0.21 10*3/uL 0-0.06 H code = 1884667351) LYMPH x10^3 (test code 1.97 10*3/uL 1.09-3.23 = 731-0) MONO x10^3 (test code 0.55 10*3/uL 0.36-1.02 = 742-7) EOS x10^3 (test code = 0.09 10*3/uL 0.06-0.53 711-2) BASO x10^3 (test code 0.09 10*3/uL 0.01-0.09 = 704-7) BASO STIPPLING (test Present A code = 703-9) BANDS (test code = Increased A 3206331130) TOXIC CHANGES (test Present A code = 803-7) Lab Interpretation Abnormal (test code = 07611-6) [facility] Metabolic Panel (NA, K, CL, CO2, GLUCOSE, BUN, CREATININE, CA)2020-08-22 11:12:00 Test Item Value Reference Range Interpretation Comments NA (test code = 135 mmol/L 135-145 2920784724) K (test code = 3.6 mmol/L 3.5-5 8107225607) CL (test code = 99 mmol/L 98-108 5604881844) CO2 TOTAL (test code = 31 mmol/L 23-31 2275441112) AGAP (test code = 2-16 5859555511) BUN (test code = 9 mg/dL 7-23 0808625512) GLUCOSE (test code = 198 mg/dL 70-110 H 1221668625) CREATININE (test code = 0.72 mg/dL 0.6-1.25 6916902550) CALCIUM (test code = 8.3 mg/dL 8.6-10.6 L 8964786268) eGFR Calculation mL/min/1.73m2 (Non-) (test code = 4466760057) eGFR Calculation mL/min/1.73m2 () (test code = 0298917842) JAMES (test code = JAMES) Association of [...] tests). Lab Interpretation Abnormal (test code = 16819-3) [facility] CampusMagn[facility] Jovfo9415-47-04 11:12:00 Test Item Value Reference Range Interpretation Comments MAGNESIUM (test code = 1835924185) 2.0 mg/dL 1.7-2.4 Lab Interpretation (test code = Normal 11772-0) [facility] CampusLipid Panel (Total Cholesterol, Triglycerides, HDL) - Vrhqmun2880-70-30 11:12:00 Test Item Value Reference Range Interpretation Comments CHOL (test code = 155 mg/dL 120-200 6444891079) HDL (test code = 42 mg/dL >40 3279541042) HDLC RATIO (test code = See_Comment [Au tomated message] 4582050716) The system [employer] generated this result transmit ronan reference range : <=5.0. The refe rence range was not u sed to interpret th is result as normal/abnormal . TRIG (test code = 186 mg/dL 30-170 H 9222569692) LDL CHOL (test code = 76 mg/dL See_Comment [Auto mated message] 25242-1) The system [employer] generated this result transmit ronan reference range : <=160. The refe rence range was not u sed to interpret th is result as normal/abnormal . VLDL (test code = 37 mg/dL 5-60 9806976135) Lab Interpretation (test Abnormal code = 30576-9) [facility] CampusHEPATIC FUNCTION PANEL (09685) (ALB,T.PRO,BILI T,BU/BC,ALT,AST,ALK PHOS)2020-08-22 11:12:00 Test Item Value Reference Range Interpretation Comments TOTAL BILI (test code = 9721528665) 0.6 mg/dL 0.1-1.1 BILI UNCON (test code = 1615017590) 0.2 mg/dL 0.1-1.1 BILI CONJ (test code = 8454258309) 0.0 mg/dL 0-0.3 T PROTEIN (test code = 9561601900) 6.0 g/dL 6.3-8.2 L ALBUMIN (test code = 0169216355) 2.8 g/dL 3.5-5 L ALK PHOS (test code = 8817290905) 222 U/L 34-122 H ALTv (test code = 1742-6) 27 U/L 5-50 AST(SGOT) (test code = 5628269924) 30 U/L 13-40 Lab Interpretation (test code = Abnormal 74460-5) [facility] GLUCOSE (AUTOMATED)2020-08-22 10:11:00 Test Item Value Reference Range Interpretation Comments POCT GLU (test code = 8036068157) 196 mg/dL 70-110 H Lab Interpretation (test code = Abnormal 46305-3) [facility] GLUCOSE (AUTOMATED)2020-08-22 07:15:00 Test Item Value Reference Range Interpretation Comments POCT GLU (test code = 4946201968) 183 mg/dL 70-110 H Lab Interpretation (test code = Abnormal 86548-0) [facility] GLUCOSE (AUTOMATED)2020-08-22 02:30:00 Test Item Value Reference Range Interpretation Comments POCT GLU (test code = 2712888359) 295 mg/dL 70-110 H Lab Interpretation (test code = Abnormal 11431-4) [facility] GLUCOSE (AUTOMATED)2020-08-21 23:46:00 Test Item Value Reference Range Interpretation Comments POCT GLU (test code = 2137935594) 258 mg/dL 70-110 H Lab Interpretation (test code = Abnormal 72453-8) [facility] CampusC-REACTIVE [id number] 18:50:00 Test Item Value Reference Range Interpretation Comments CRP (test code = 5889361319) 15.5 mg/dL <0.8 H Lab Interpretation (test code = Abnormal 97273-9) [facility]2020-08-21 18:21:00 Test Item Value Reference Range Interpretation Comments POCT GLU (test code = 0248000919) 297 mg/dL 70-110 H Lab Interpretation (test code = Abnormal 94275-6) [facility] CampusETHANOL2020-11-09 16:24:00 Test Item Value Reference Range Interpretation Comments ALCOHOL (test code = <10 mg/dL 9693637932) JAMES (test code = Toxic Greater than or JAMES) equal to 80 mg/dL. NOTE: Whole blood values are approximately 10% to 15% lower than serum and plasma. [facility] URINE [facility] (IMMUNOASSAY) - 4 ER [id number] 15:36:00 Test Item Value Reference Range Interpretation Comments AMPHET (test code = Negative Negative 3363202965) Cocaine Metabolite (test Negative Negative code = 8506964536) OPIATES (test code = Presumptive Positive Negative A 8456429096) THC (test code = Negative Negative 6347279488) JAMES (test code = JAMES) Urine Drug Cutoff Ranges Amphetamine: ? 1,000 ng/mLCocaine: ? 150 ng/mLOpiates: ? 300 ng/mLCannabinoids: ?50 ng/mL The results are to be used only for medical (i.e., treatment) purposes. Unconfirmed screening results must not be used for non-medical purposes (e.g., employment testing, legal testing). Lab Interpretation (test Abnormal code = 14797-9) [facility] ONLY - SYPHILIS [id number] 15:04:00 Test Item Value Reference Range Interpretation Comments Syphilis IgG/IgM (test Non-reactive Non-reactive code = 79073-7) JAMES (test code = JAMES) Non-reactive - No serologic evidence of T. pallidum infection. Cannot exclude incubating or early syphilis. Submit a second specimen in 2-4 weeks if syphilis is clinically suspected. Equivocal - Further testing to follow. Reactive - Further testing to follow. Lab Interpretation (test Normal code = 35481-3) [facility] CampusUrinalysis2020-11-09 14:52:00 Test Item Value Reference Range Interpretation Comments APPEARANCE (test code = Clear Clear 3711318483) COLOR (test code = Yellow Yellow 8721105239) PH (test code = 4.8-8.0 0240904197) SP GRAVITY (test code = 1.003-1.030 7876623445) GLU U QUAL (test code = 500 mg/dL Normal A 5212059177) BLOOD (test code = Negative Negative 3560432727) KETONES (test code = 20 mg/dL Negative A 3488964718) PROTEIN (test code = Negative Negative 2887-8) UROBILIN (test code = Normal Normal 5621231482) BILIRUBIN (test code = Negative Negative 3096539138) NITRITE (test code = Negative Negative 6342783883) LEUK RYAN (test code = Negative Negative 8687153329) RBC/HPF (test code = <1 See_Comment [Autom ated message] 0283108212) The system [employer] generated this result transmit ronan reference range : 0 - 3 HPF. The refe rence range was not u sed to interpret th is result as normal/abnormal . WBC/HPF (test code = See_Comment [Autom ated message] 6391551802) The system [employer] generated this result transmit ronan reference range : 0 - 5 HPF. The refe rence range was not u sed to interpret th is result as normal/abnormal . BACTERIA (test code = Negative Negative 6537404033) MUCOUS (test code = Slight Negative LPF A 7791743105) Lab Interpretation (test Abnormal code = 71867-7) [facility] CampusACTIVATED PARTIAL THRMPLAS [id number] 13:45:00 Test Item Value Reference Range Interpretation Comments APTT Patient (test code = See_Comment [ Automated message] 3173-2) The system [employer] generated this result transmitted ref erence range: 26 - 36 Seconds. The re ference range was not u sed to interpret this result as normal/abnor mal. Lab Interpretation (test Normal code = 85763-3) [facility]PO[facility] GL[facility]COSE (AUTOMATED)2020-08-21 13:45:00 Test Item Value Reference Range Interpretation Comments POCT GLU (test code = 5171795493) 246 mg/dL 70-110 H Lab Interpretation (test code = Abnormal 60655-7) [facility]HIV 1/2 AG-AB WITH [id number] 12:32:00 Test Item Value Reference Range Interpretation Comments HIV Negative Negative Semi-quantitative (test code = 97444-0) JAMES (test code = Non-reactive for HIV-1 JAMES) antigen and HIV-1/HIV-2 antibodies. ?No laboratory evidence of HIV infection. ?Repeat in 2-4 weeks if acute HIV infection is suspected. [facility] WITH [id number] 12:18:00 Test Item Value Reference Range Interpretation Comments WBC (test code = See_Comment [Automated 2890-2) message] The sy stem which generated this [...] RDW-SD (test code = 44.4 fL 38.5-51.6 61191-2) RDW-CV (test code = 14.5 % 12.1-15.4 788-0) PLT (test code = See_Comment H [Automated 777-3) message] The sy stem which generated this result transmitted reference range : 150 - 328 10*3/ ?L. The reference r torito was not used to interpret this result as normal/abnormal . MPV (test code = 8.5 fL 9.8-13 L 79075-8) NRBC/100 WBC (test See_Comment [Automat ed code = 6222164795) message] The system which generated this result transmitted reference range : 0.0 - 10.0 /100 WBCs. The refer ence range was not u sed to interpret th is result as normal/abnormal . NRBC x10^3 (test code <0.01 See_Comment [Auto mated = 8581963343) message] The s ystem which generated this result transmitted reference range : 10*3/?L. The reference range was not used to interpret this result as normal/abnormal . GRAN MAT (NEUT) % 90.4 % (test code = 770-8) IMM GRAN % (test code 1.30 % = 9293350852) LYMPH % (test code = 7.1 % 736-9) MONO % (test code = 0.5 % 5905-5) EOS % (test code = 0.1 % 713-8) BASO % (test code = 0.6 % 706-2) GRAN MAT x10^3(ANC) 7.74 10*3/uL 1.99-6.95 H (test code = 2502139851) IMM GRAN x10^3 (test 0.11 10*3/uL 0-0.06 H code = 9666826461) LYMPH x10^3 (test code 0.61 10*3/uL 1.09-3.23 L = 731-0) MONO x10^3 (test code 0.04 10*3/uL 0.36-1.02 L = 742-7) EOS x10^3 (test code = <0.03 0.06-0.53 L 711-2) BASO x10^3 (test code 0.05 10*3/uL 0.01-0.09 = 704-7) POLYCHROMASIA (test 2+ See_Comment [Automa ronan code = 03224-4) message] The system which generated this result transmitted reference range : 2+. The referen ce range was not u sed to interpret th is result as normal/abnormal . BANDS (test code = Increased A 7936721750) Lab Interpretation Abnormal (test code = 25829-8) [facility] CampusPROCALCITONIN2020-11-09 11:48:00 Test Item Value Reference Range Interpretation Comments Procalcitonin (test 0.36 ng/mL <0.07 H code = 1431683688) JAMES (test code = JAMES) INTERPRETATION OF [...] lung abscess/empyema. For further information please refer to:[email or web address] Lab Interpretation Abnormal (test code = 04883-6) [facility] CampusLALAATE [id number] 10:53:00 Test Item Value Reference Range Interpretation Comments LDH (test code = 7892939726) 351 U/L 300-600 Lab Interpretation (test code = Normal 60560-9) [facility] CampusSEDIMENTATION [id number] 10:07:00 Test Item Value Reference Range Interpretation Comments ESR (test code = See_Comment H [Automated message] 8167505318) The system [employer] generated this result transmitted ref erence range: 0 - 10 m m/HR. The reference r torito was not used to interpret this result as normal/abnor mal. Lab Interpretation (test Abnormal code = 71152-2) [facility] CampusPOLA GLUCOSE (AUTOMATED)2020-08-21 09:45:00 Test Item Value Reference Range Interpretation Comments POCT GLU (test code = 0358739081) 287 mg/dL 70-110 H Lab Interpretation (test code = Abnormal 33991-7) [facility] CampusGlycosylated Hemoglobin (A1C)2020-08-21 09:29:00 Test Item Value Reference Range Interpretation Comments HGB A1C (test code = 4548-4) 9.8 % 4-6 H Lab Interpretation (test code = Abnormal 72540-1) [facility] CampusCOVID-19 (ID NOW RAPID TESTING)2020-08-21 09:13:00 Test Item Value Reference Range Interpretation Comments SARS-CoV-2 Rapid ID NOW Not Detected Not Detected (test code = 65526-3) JAMES (test code = JAMES) ID NOW COVID-19 Assay is an isothermal nucleic acid amplification test intended for the qualitative detection of nucleic acid from SARS-CoV-2 viral RNA in nasopharyngeal (CLINICAL INTERVIEWER) specimens. It is used under Emergency Use [...] indicated. Lab Interpretation Normal (test code = 59031-9) [facility] CampusProthrombin Time / [id number] 08:59:00 Test Item Value Reference Range Interpretation Comments PROTIME PATIENT (test See_Comment H [Auto mated message] code = 5964-2) The system [employer] generated this result transmitted ref erence range: 10.1 - 1 2.6 Seconds. The reference range was not used to int erpret this result as normal/abnormal . INR (test code = 6301-6) Nor mal INR <1.1; Warfarin Therap eutic range 2.0 to 3. 0 or 2.5 to 3.5, dep ending upon the indica tions. Lab Interpretation (test Abnormal code = 76533-0) [facility] CampusaPTT2020-11-09 08:59:00 Test Item Value Reference Range Interpretation Comments APTT Patient (test code = See_Comment [ Automated message] 3173-2) The system [employer] generated this result transmitted ref erence range: 26 - 36 Seconds. The re ference range was not u sed to interpret this result as normal/abnor mal. Lab Interpretation (test Normal code = 51064-4) [facility] CampusBASI METABOLIC PANEL (NA, K, CL, CO2, GLUCOSE, BUN, CREATININE, CA)2020-08-21 08:52:00 Test Item Value Reference Range Interpretation Comments NA (test code = 136 mmol/L 135-145 6446607911) K (test code = 4.3 mmol/L 3.5-5 3238515982) CL (test code = 104 mmol/L 98-108 6784570392) CO2 TOTAL (test code = 24 mmol/L 23-31 3913690370) AGAP (test code = 2-16 6209073211) BUN (test code = 8 mg/dL 7-23 6735615034) GLUCOSE (test code = 308 mg/dL 70-110 H 0704697578) CREATININE (test code = 0.72 mg/dL 0.6-1.25 1185322154) CALCIUM (test code = 7.8 mg/dL 8.6-10.6 L 4490083480) eGFR Calculation mL/min/1.73m2 (Non-) (test code = 2769794473) eGFR Calculation mL/min/1.73m2 () (test code = 0296374246) JAMES (test code = JAMES) Association of [...] tests). Lab Interpretation Abnormal (test code = 19984-5) [facility] CampusHEPATIC FUNCTION PANEL (14779) (ALB,T.PRO,BILI T,BU/BC,ALT,AST,ALK PHOS)2020-08-21 08:52:00 Test Item Value Reference Range Interpretation Comments TOTAL BILI (test code = 9015472504) 0.8 mg/dL 0.1-1.1 BILI UNCON (test code = 4539891546) 0.3 mg/dL 0.1-1.1 BILI CONJ (test code = 8003825890) 0.0 mg/dL 0-0.3 T PROTEIN (test code = 7353080791) 5.7 g/dL 6.3-8.2 L ALBUMIN (test code = 1326500034) 2.7 g/dL 3.5-5 L ALK PHOS (test code = 7682078734) 245 U/L 34-122 H ALTv (test code = 1742-6) 37 U/L 5-50 AST(SGOT) (test code = 4802559505) 43 U/L 13-40 H Lab Interpretation (test code = Abnormal 81847-2) [facility]
--- NOTE | 2021-08-28 08:23 | EDPHYS ---
Physician Documentation [facility] Name: Kiel Ngo Age: 70 yrs Sex: Male : 1950 Arrival Date: 08/28/2021 Time: 08:08 Bed 15 Private MD: ED Physician Michael Bosch HPI: 08/28 08:19 This 70 yrs old Male presents to ER via EMS with complaints of Pain all over. rn 08:19 Patient reports feeling pain all over since last night. States has chronic pain. States rn just saw his pain doctor yesterday and prescribed fentanyl patches but not ready yet in the pharmacy and could not wait. States this pain is identical to his chronic pain and no new symptoms. Denies any fever. Denies any trauma or fall. Reports having normal bowel movements and not constipated today.. Onset: The symptoms/episode began/occurred at an unknown time. Severity of symptoms: At their worst the symptoms were moderate in the emergency department the symptoms are unchanged. The patient has experienced similar episodes in the past, chronically. The patient has been recently seen by a physician:. Historical: - Allergies: 08:25 Demerol; jt3 08:25 metformin; jt3 08:25 Morphine; jt3 - Home Meds: 08:25 alprazolam 0.25 mg Oral tab 1 tab PRN for Anxiety [Active]; Benadryl 50mg Oral jt3 [Active]; Effexor XR 150 mg Oral cp24 [Active]; hydromorphone 4 mg Oral tab 1 tab every 6 hours for Pain [Active]; venlafaxine 150 mg Oral cp24 1 cap twice a day [Active]; tizanidine 4 mg Oral cap [Active]; insulin SQ [Active]; - PSHx: 08:25 back sx; jt3 - Immunization history:: Adult Immunizations up to date. - Family history:: not pertinent. - Social history:: Smoking status: Patient denies any tobacco usage or history of. - Hospitalizations: : No recent hospitalization is reported. ROS: 08:19 Constitutional: Negative for fever, chills, and weight loss, Eyes: Negative for injury, rn pain, redness, and discharge, Neck: Negative for injury, pain, and swelling, Cardiovascular: Negative for chest pain, palpitations, and edema, Respiratory: Negative for shortness of breath, cough, wheezing, and pleuritic chest pain, Abdomen/GI: Negative for abdominal pain, nausea, vomiting, diarrhea, and constipation, Back: Negative for injury and pain, : Negative for injury, bleeding, discharge, and swelling, MS/Extremity: Negative for injury and deformity, Skin: Negative for injury, rash, and discoloration, Neuro: Negative for headache, weakness, numbness, tingling, and seizure. Exam: 08:19 Constitutional: This is a well developed, well nourished patient who is awake, alert, rn and in no acute distress. Head/Face: Normocephalic, atraumatic. ENT: Moist mucous membranes Cardiovascular: Regular rate and rhythm. No pulse deficits. Respiratory: No increased work of breathing, no retractions or nasal flaring. Abdomen/GI: Soft, non-tender Skin: Warm, dry, no evidence of cellulitis MS/ Extremity: Pulses equal, no cyanosis Neuro: Awake and alert, GCS 15 Vital Signs: 08:09 BP 130 / 71; Pulse 95; Resp 18; Temp 97.9(O); Pulse Ox 99% on R/A; sl2 09:19 BP 141 / 77; Pulse 96; Resp 17; Pulse Ox 98% ; Pain 5/10; ll1 MDM: 08:09 Patient medically screened. rn 08:19 Differential Diagnosis Chronic pain. Data reviewed: vital signs, nurses notes, old rn medical records, and as a result, I will discharge patient. Counseling: I had a detailed discussion with the patient and/or guardian regarding: the historical points, exam findings, and any diagnostic results supporting the discharge/admit diagnosis, the need for outpatient follow up, to return to the emergency department if symptoms worsen or persist or if there are any questions or concerns that arise at home. Response to treatment: the patient's symptoms have mildly improved after treatment, and as a result, I will discharge patient. Special discussion: I discussed with the patient/guardian in detail that at this point there is no indication for admission to the hospital. It is understood, however, that if the symptoms persist or worsen the patient needs to return immediately for re-evaluation. Based on the history and exam findings, there is no indication for further emergent testing or inpatient evaluation. 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 ED course: Had long discussion with patient regarding pain management and why he sees pain management doctor. He is not happy with his current pain management and states cannot wait until his fentanyl patches are ready in the pharmacy. No new symptoms. Pain identical to his chronic pain. Patient requesting Dilaudid shot/fentanyl shot/fentanyl patches. Told him that we cannot keep doing this for chronic pain and needs to follow-up with his pain management doctor.. Administered Medications: 08:36 Drug: fentaNYL (PF) 50 mcg Route: IM; Site: left deltoid; jt3 09:19 Follow up: Response: No adverse reaction; Pain is decreased; RASS: Alert and Calm (0) ll1 Disposition Summary: 08/28/21 08:23 Discharge Ordered Location: Home rn Problem: chronic rn Symptoms: have improved rn Condition: Stable rn Diagnosis - Chronic pain syndrome rn Followup: rn - With: Private Physician - When: As needed - Reason: Recheck today's complaints, Re-evaluation by your physician Discharge Instructions: - Discharge Summary Sheet rn - Chronic Pain, Adult rn Forms: - Medication Reconciliation Form rn - Thank You Letter rn - Antibiotic rn stars - Prescription Opioid Use rn Signatures: Michael Bosch MD MD rn TejcRaheel webb RN RN jt3 Tristian Mccormack RN ll1
--- NOTE | 2021-08-28 08:23 | ER ---
Nurse's Notes [facility] Name: Kiel Ngo Age: 70 yrs Sex: Male : 1950 Arrival Date: 08/28/2021 Time: 08:08 Bed 15 Private MD: Diagnosis: Chronic pain syndrome Presentation: 08/28 08:09 Chief complaint: EMS states: Patient JOHN X 3, presents to ED via [facility] - sl2 transferred from home with chief complaint of exacerbation of chronic pain - generalized to entire body. Patient states ran out of his pain medication and has to wait until refill date on 08/30/21 . Chief complaint:. Coronavirus screen: Vaccine status: Patient reports being unvaccinated. Ebola Screen: Patient negative for fever greater than or equal to 101.5 degrees Fahrenheit, and additional compatible Ebola Virus Disease symptoms Patient denies exposure to infectious person. Patient denies travel to an Ebola-affected area in the 21 days before illness onset. Initial Sepsis Screen: Does the patient meet any 2 criteria? No. Patient's initial sepsis screen is negative. Does the patient have a suspected source of infection? No. Patient's initial sepsis screen is negative. Risk Assessment: Do you want to hurt yourself or someone else? Patient reports no desire to harm self or others. Onset of symptoms is unknown. 08:09 Method Of Arrival: EMS: [facility] 08:09 Acuity: JOZEF 3 sl2 Historical: - Allergies: 08:25 Demerol; jt3 08:25 metformin; jt3 08:25 Morphine; jt3 - Home Meds: 08:25 alprazolam 0.25 mg Oral tab 1 tab PRN for Anxiety [Active]; Benadryl 50mg Oral jt3 [Active]; Effexor XR 150 mg Oral cp24 [Active]; hydromorphone 4 mg Oral tab 1 tab every 6 hours for Pain [Active]; venlafaxine 150 mg Oral cp24 1 cap twice a day [Active]; tizanidine 4 mg Oral cap [Active]; insulin SQ [Active]; - PSHx: 08:25 back sx; jt3 - Immunization history:: Adult Immunizations up to date. - Family history:: not pertinent. - Social history:: Smoking status: Patient denies any tobacco usage or history of. - Hospitalizations: : No recent hospitalization is reported. Screenin:25 Abuse screen: Denies threats or abuse. Denies injuries from another. Nutritional jt3 screening: No deficits noted. Tuberculosis screening: No symptoms or risk factors identified. Fall Risk None identified. Assessment: 08:24 Reassessment: Pt. denies chest pain or SOB. General: Appears in no apparent distress. jt3 Behavior is calm, cooperative. Pain: Complains of pain in Generalized pain all over body. Pain currently is 8 out of 10 on a pain scale. Quality of pain is described as throbbing. Neuro: No deficits noted. Cardiovascular: No deficits noted. Respiratory: No deficits noted. GI: No deficits noted. 09:20 Reassessment: No changes from previously documented assessment. Patient and/or family ll1 updated on plan of care and expected duration. Pain level reassessed. Patient is alert, oriented x 3, equal unlabored respirations, skin warm/dry/pink. Patient states feeling better. Vital Signs: 08:09 BP 130 / 71; Pulse 95; Resp 18; Temp 97.9(O); Pulse Ox 99% on R/A; sl2 09:19 BP 141 / 77; Pulse 96; Resp 17; Pulse Ox 98% ; Pain 5/10; ll1 ED Course: 08:08 Patient arrived in ED. sl2 08:09 Michael Bosch MD is Attending Physician. rn 08:14 Triage completed. sl2 08:15 Raheel Wetzel RN is Primary Nurse. jt3 08:25 Patient has correct armband on for positive identification. Placed in gown. Bed in low jt3 position. Side rails up X2. 08:25 No provider procedures requiring assistance completed. Patient did not have IV access jt3 during this emergency room visit. 09:20 Patient n/a. ll1 Administered Medications: 08:36 Drug: fentaNYL (PF) 50 mcg Route: IM; Site: left deltoid; jt3 09:19 Follow up: Response: No adverse reaction; Pain is decreased; RASS: Alert and Calm (0) ll1 Outcome: 08:23 Discharge ordered by . rn 09:20 Discharged to home ambulatory. ll1 09:20 Condition: stable 09:20 Discharge instructions given to patient, Instructed on discharge instructions, follow up and referral plans. Demonstrated understanding of instructions, follow-up care. 09:20 Patient left the ED. ll1 Signatures: Michael Bosch MD MD rn Lewis, Lynsay, RN RN ll1 Cindy Stevens RN RN sl2 Raheel Wetzel RN RN jt3
[2021-08-28] MEDS ORDERED: FENTANYL CITR 100 MCG/2 ML ONE (08:30)
[2021-08-28 09:37] VITALS: BP 130/71; TEMP 97.9; O2SAT 99
--- NOTE | 2021-08-29 17:02 | EKG ---
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
== END 2021-08-28 09:20 | disposition home or self-care (01) ==
LOC: ER 08:06
DX: G89.4 Chronic pain syndrome (principal); Z88.5 Allergy status to narcotic agent; Z88.8 Allergy status to other drugs, medicaments and biological substances
CPT/HCPCS: 93005; 96372; 99283; J3010

== ENCOUNTER 2021-11-02 15:35 | Emergency (ER) | payer OTHER ==
--- OUTSIDE RECORDS SUMMARY | 2021-11-02 15:55 | XMS REPORT | Continuity of Care Document ---
:1950 Author Organization [facility] t Address [address] [place] [address] [place] [id number] Care Team Providers Name Role Phone Edy Samanta Primary Care Physician CECILIO WASHINGTON Attending Clinician Unavailable GIRISH Attending Clinician Unavailable Girish VILLAREAL Attending Clinician ZAKI Attending Clinician Unavailable Hawa Lagos MD Attending Clinician Lorraine CORTEZ Attending Clinician Singer WATTS Attending Clinician Elizabeth Harrison MD Attending Clinician Nilda Kauffman MD Attending Clinician Attending Clinician Unavailable Doctor Unassigned, Name Attending Clinician Unavailable Wilder VILLAREAL, K.H. Attending Clinician Eliot VILLAREAL Attending Clinician Cecilio Washington MD Attending Clinician Kika Gallardo MD Attending Clinician KIKA GALLARDO Admitting Clinician Unavailable Elizabeth Harrison MD Admitting Clinician Kika Gallardo MD Admitting Clinician Payers Payer Name Policy Type Policy Number Effective Date Expiration Date S ource MEDICARE PART A [id number] 2007 \\T\\ B 00:00:00 [employer] INDEMNITY [id number] 2016 00:00:00 MEDICARE PART A [id number] 2014 \\T\\ B - MEDICARE 00:00:00 INDEMNITY/TRADITIO [id number] NAL CHOICE - [employer] 00:00:00 Problems Condition Condition Condition Status Onset Resolution Last Treating Co mments Source Name Details Category Date Date Treatment Clinician Date Elevated Elevated Disease Active Unive rs LFTs LFTs 2-05 ity of 00:00: [place] 00 Medical Branch Abnormal Abnormal Disease Active Unive [...] ents Source Name Type Date Date Clinician Lander Propensi Active Rash 2019- Univers ty to [...] Univers EFREN INGREDI 3-16 ity of 00:00: [place] 00 Medical Branch METFORMI DRUG Active ITCHING Univers N INGREDI 3-16 ity of 00:00: [place] 00 Medical Branch Social History Social Habit Start Date Stop Date Quantity Comments Source Exposure to Not sure [place] of SARS-CoV-2 [facility] (event) Branch History of Chews Tobacco University of tobacco use [facility] History [facility] 2020-11-17 2020-11-17 5 University o f Financial 00:00:00 00:00:00 [facility] History [facility] Food 2020-11-17 2020-11-17 1 Univers ity of Worry 00:00:00 00:00:00 [facility] Branch History [facility] Food 2020-11-17 2020-11-17 1 Univers ity of Scarcity 00:00:00 00:00:00 [facility] Branch History [facility] 2020-11-17 2020-11-17 1 University o f Transport Med 00:00:00 00:00:00 [place] [facility] al Branch History [facility] 2020-11-17 2020-11-17 1 University o f Transport Non-Med 00:00:00 00:00:00 [facility] edical Branch Education 2020-11-16 2020-11-16 21 [place] of 00:00:00 00:00:00 [facility] Alcohol intake 2020-11-16 2020-11-16 Ex-drinker [place] of 00:00:00 00:00:00 (finding) [facility] Tobacco use and 2020-08-21 2020-08-21 Former user Universi ty of exposure 00:00:00 00:00:00 [facility] Tobacco Comment 2020-08-21 2020-08-21 quit 10 years Univer sity of 00:00:00 00:00:00 ago, started in [place] Med ical 2nd year of Branch college (~40 years) Alcohol Comment 2020-08-21 2020-08-21 Used to have 2-3 Uni versity of 00:00:00 00:00:00 six-packs of [place] Medica l beer daily x 20 Branch years, quit 2005 History [facility] 2020-08-21 2020-08-21 99 University o f Alcohol Frequency 00:00:00 00:00:00 [place] M edical Branch History SDNM 2020-08-21 2020-08-21 99 [place] o f Alcohol Std 00:00:00 00:00:00 [place] Medical Drinks Branch History SDNM 2020-08-21 2020-08-21 99 [place] o f Alcohol Binge 00:00:00 00:00:00 [place] Medic al Branch Sex [birth year] Universit y of 00:00:00 00:00:00 [place] [facility] [place] Smoking Status Start Date Stop Date Source Never smoker [facility] Medications Ordered Filled Start Stop Current Ordering [...] by ity of tablet 22:47: mouth at [place] 18 bedtime. Medical Branch HYDROmorpho Yes 4mg [...] FLEXPEN [place]) 18 skin. Medical Branch mirtazapine 0 Yes 7.5mg Take 7.5 U nivers 7.5 [...] 0845, Until Discontinu ed, Routine amLODIPine Yes [id number] 10mg Take 1 Univers 10 mg 3-07 tablet by ity of tablet 00:00: mouth [place] 00 daily. Medical Branch clotrimazol Yes [id number] Apply to Univers e 1 % 3-07 face/ears, ity of topical 00:00: armpits, [place] cream 00 pannus and Medical back/any Branch other rash twice a day fluocinonid 0 Yes [id number] Apply to Univers e 0.05 % 3-07 scalp ity of solution 00:00: twice a [place] 00 day Medical Branch triamcinolo Yes [id number] Apply to Univers ne 3-07 back, ity of acetonide 00:00: armpits [place] 0.1 % cream 00 and other Med ical affected Branch areas twice daily, please mix with clotrimazo le hydrOXYzine 2020-0 Yes [id number] 10mg Take 1 Univers 10 mg 3-07 tablet by ity of tablet 00:00: mouth 2 00 (two) Medical times Branch daily. amLODIPine 2020-0 Yes [id number] 10mg Take 1 Univers 10 mg 3-07 tablet by ity of tablet 00:00: mouth [place] 00 daily. Medical Branch clotrimazol 2020-0 Yes [id number] Apply to Univers e 1 % 3-07 face/ears, ity of topical 00:00: armpits, [place] cream 00 pannus and Medical back/any Branch other rash twice a day fluocinonid 2020-0 Yes [id number] Apply to Univers e 0.05 % 3-07 scalp ity of solution 00:00: twice a day Medical Branch triamcinolo 0 Yes [id number] Apply to Univers ne 3-07 back, ity of acetonide 00:00: armpits [place] 0.1 % cream 00 and other Med ical affected Branch areas twice daily, please mix with clotrimazo le hydrOXYzine Yes [id number] 10mg Take 1 Univers 10 mg 3-07 tablet by ity of tablet 00:00: mouth 2 00 (two) Medical times Branch daily. amLODIPine Yes [id number] 10mg Take 1 Univers 10 mg 3-07 tablet by ity of tablet 00:00: mouth 00 daily. Medical Branch clotrimazol 2020-0 Yes [id number] Apply to Univers e 1 % 3-07 face/ears, ity of topical 00:00: armpits, [place] cream 00 pannus and Medical back/any Branch other rash twice a day fluocinonid 2020-0 Yes [id number] Apply to Univers e 0.05 % 3-07 scalp ity of solution 00:00: twice a [place] 00 day Medical Branch triamcinolo 2020-0 Yes [id number] Apply to Univers ne 3-07 back, ity of acetonide 00:00: armpits [place] 0.1 % cream 00 and other Med ical affected Branch areas twice daily, please mix with clotrimazo le hydrOXYzine Yes [id number] 10mg Take 1 Univers 10 mg 3-07 tablet by ity of tablet 00:00: mouth 2 [place] 00 (two) Medical times Branch daily. amLODIPine Yes [id number] 10mg Take 1 Univers 10 mg 3-07 tablet by ity of tablet 00:00: mouth [place] 00 daily. Medical Branch clotrimazol Yes [id number] Apply to Univers e 1 % 3-07 face/ears, ity of topical 00:00: armpits, [place] cream 00 pannus and Medical back/any Branch other rash twice a day fluocinonid Yes [id number] Apply to Univers e 0.05 % 12-17 scalp ity of solution 00:00: twice a [place] 00 day Medical Branch triamcinolo Yes [id number] Apply to Univers ne 3-07 back, ity of acetonide 00:00: armpits [place] 0.1 % cream 00 and other Med ical affected Branch areas twice daily, please mix with clotrimazo le hydrOXYzine Yes [id number] 10mg Take 1 Univers 10 mg 3-07 tablet by ity of tablet 00:00: mouth 2 [place] 00 (two) Medical times Branch daily. cephALEXin 2020- No [id number] 500mg Take 1 Univers 500 mg -04 14- capsule by ity of capsule 00:00: 05:59 mouth [place] 00 :00 every 6 Medical (six) Branch hours for 3 days. cephALEXin 2020-2020- No [id number] 500mg Take 1 Univers 500 mg 3-04 14-11 capsule by ity of capsule 00:00: 05:59 mouth [place] 00 :00 every 6 Medical (six) Branch hours for 3 days. hydrOXYzine 2020-2020- No [id number] 10mg Take 1 Univers 10 mg 3-04 14-07 tablet by ity of tablet 00:00: 00:00 mouth 2 [place] 00 :00 (two) Medical times Branch daily. morpHINE Yes 4mg 4 mg, Slow Uni vers injection 4 - IV Push, ity of mg 22:40: Q6HPRN, [place] 02 Starting Medical 12/16/20 Branch at 1640, [...] NaCl 0.9% 2020- No 500mL at 999 [facility] ers (NS) bolus 12-15 mL/hr, 500 it y of infusion 16:00: 15:26 mL, IV [place] 500 mL 00 :00 [facility], [facility] ONCE, 1 Branch dose, Fri12/15/20 at 1000, STAT HYDROmorpho Yes 4mg 4 mg, Unive ne 12-15 Oral, BID, ity of (DILAUDID) 15:30: First dose [place] tablet 4 mg 00 (after Medica l last Branch modificati on) on Fri12/15/20 at 0930, Until Discontinu ed, Routine amLODIPine 2020- No [id number] 10mg Take 1 Univers 10 mg 12-15 tablet by ity of tablet 00:00: 00:00 mouth [place] 00 :00 daily. Medical Branch HYDROmorpho 2020- No 1mg 1 mg, [facility] ers ne 12-14 Oral, ity of (DILAUDID) 17:35: 15:18 Q6HPRN, [place] tablet 1 mg 30 :06 Starting Medi [facility] 12/14/20 Branch at 1135, Until Fri12/15/20 at 0918, Routine, Pain (scale 7-10) hydrOXYzine Yes 10mg 10 mg, [facility] ers (ATARAX) 12-14 Oral, BID, ity o f tablet 10 17:30: First dose [place] mg 00 on [facility] 12/14/20 at Branch 1130, Until Discontinu ed, Routine lisinopriL Yes 5mg 5 mg, Univer s (PRINIVIL,Z 12-14 Oral, ity of ESTRIL) 17:30: DAILY, [place] tablet 5 mg 00 First dose Me dical on [facility] 12/14/20 at 1130, Until Discontinu ed, Routine triamcinolo 2020- No [id number] Apply to [facility] 12-14 back, ity of acetonide 00:00: 00:00 armpits [place] 0.1 % cream 00 :00 and other Med ical affected Branch areas twice daily, please mix with clotrimazo le clotrimazol 2020- No [id number] Apply to Univers e 1 % 12-14 face/ears, ity of topical 00:00: 00:00 armpits, [place] cream 00 :00 pannus and Medical back/any Branch other rash twice a day fluocinonid 2020- No [id number] Apply to Univers e 0.05 % 12-14 scalp ity of solution 00:00: 00:00 twice a [place] 00 :00 day Medical Branch hydrOXYzine 2020- No [id number] 10mg Take 1 Univers 10 mg 12-14 [...] IV Push, ity of (PF)) 10:07: Q6HPRN, [place] injection 4 28 Starting Medi jose c mg 12/13/20 Branch at 0407, Until Discontinu ed, Routine, Nausea and Vomiting (N/V) ondansetron 2020- No 4mg 4 mg, Slow Univers (ZOFRAN 12-13 03-03 IV Push, ity of (PF)) 04:55: 05:44 ONCE, 1 [place] injection 4 00 :00 dose, [facility] ical mg 12/12/20 at Branch 2300, Routine traMADoL 2020- No 50mg 50 mg, Univer s (ULTRAM) 12-13 03-03 Oral, ity of tablet 50 03:45: 03:34 ONCE, 1 [place] mg 00 :00 dose, [facility] 12/12/20 at Branch 2145, Routine insulin Yes 15U 15 Units, [facility] glarg[facility] 12-12 Subcutaneo ity o f (LANTUS 15:00: us, DAILY, [place] U-100) 00 First dose Medical injection on [facility] 15 Units 12/12/20 at 0900, Until Discontinu ed hydrOXYzine 2020- No 10mg 10 mg, Uni vers (ATARAX) 3 03-02 Oral, ity of tablet 10 08:15: 07:33 ONCE, 1 [place] mg 00 :00 dose, [facility] 12/12/20 at Branch 0215, Routine mirtazapine Yes 7.5mg 7.5 mg, Un toi (REMERON) 3-02 Oral, QHS, ity of tablet 7.5 03:00: First dose [place] mg 00 on [facility] 12/11/20 at Branch 2100, Until Discontinu ed, Routine venlafaxine Yes 300mg 300 mg, Un toi XR (EFFEXOR 3-02 Oral, QHS, it y of XR) 24 hr 03:00: First dose [place] capsule 300 00 on Fri Medica l mg 12/11/20 at Branch 2100, Until Discontinu ed, Routine fluocinonid Yes Topical, Un toi e (LIDEX) 3 BID, First ity of 0.05 % 02:00: dose on [place] solution 00 Fri12/11/20 Medic al at 2000, Branch Until Discontinu ed, Routine acetaminoph 2020- No 1{tbl} 1 tablet, Univers en-codeine 12-11 03-05 Oral, ity of (TYLENOL 23:23: 13:49 Q6HPRN, [place] #3) 300-30 43 :08 Starting Medic al mg tablet 1 Fri12/11/20 Br anch tablet at 1723, Until Fri12/15/20 at 0749, Routine, Pain (scale 4-6) enoxaparin Yes 40mg 40 mg, Unive rs (LOVENOX) 12-11 Subcutaneo ity of injection 23:00: us, DAILY, [place] 40 mg 00 First dose Medical on Fri [place] 12/11/20 at 1700, Until Discontinu ed, Routine clotrimazol Yes Topical, Un toi e 12-11 BID, First ity of (LOTRIMIN) 19:15: dose on [place] 1 % topical 00 Fri12/11/20 Me dical cream at 1315, Branch Until Discontinu ed, Routine hydrocortis Yes Topical Uni vers one 2.5 % 12-11 (Apply To ity o f cream 19:15: Affected [place] 00 Areas), Medical BID, First Branch dose on Fri12/11/20 at 1315, Until Discontinu ed, Routine triamcinolo Yes Topical, Un toi ne 3 BID, First ity of acetonide 19:00: dose [...] ed, Routine insulin Yes 5U 5 Units, [facility] s lispro 12-11 Subcutaneo ity of (human) 18:00: us, TID [place] (HumaLOG 00 MEALS, Medical U-100) First dose Branch injection 5 on [facility] Units 12/11/20 at 1200, Until Discontinu ed Polyethylen Yes 17g 17 g, [facility] rs e Glycol 12-11 Oral, ity of 3350 17:47: F00ZXOL, [place] (MIRALAX) 05 Starting Medica l powder 17 g 12/11/20 Br anch at 1147, Until Discontinu ed, Routine, Constipati on acetaminoph Yes 650mg 650 mg, Un toi en 12-11 Oral, ity of (TYLENOL) 16:51: Q6HPRN, [place] tablet 650 28 Starting Medic al mg [...]
Duration of therapy: 72 hours sennosides- Yes [id number] 1{tbl} Take 1 [facility] docusate 2-09 tablet by ity of sodium 00:00: mouth 2 [place] 8.6-50 mg 00 (two) Medical per tablet times Branch daily. hydrocortis Yes [id number] Apply to [facility] one 2.5 % 11-21 affected ity of cream 00:00: area(s) 2 [place] 00 (two) Medical times Branch daily. blood sugar 0 Yes [id number] Use to [facility] diagnostic 11-21 check ity of (FREESTYLE 00:00: blood [place] LITE 00 glucose Medical STRIPS) 4-5 times Branch strip daily. Polyethylen Yes [id number] 17g Take 1 Univers e Glycol 2-09 Packet by ity of 3350 17 00:00: mouth [place] gram powder 00 every 24 Medi jose c (twenty-fo Branch ur) hours as needed for Constipati on. sennosides- 2021-0 Yes [id number] 1{tbl} Take 1 Univers docusate 2-09 tablet by ity of sodium 00:00: mouth 2 [place] 8.6-50 mg 00 (two) Medical per tablet times Branch daily. hydrocortis 2020-0 Yes [id number] Apply to Univers one 2.5 % 2-09 affected ity of cream 00:00: area(s) 2 [place] 00 (two) Medical times Branch daily. blood sugar 2020-0 Yes [id number] Use to Univers diagnostic 11-21 check ity of (FREESTYLE 00:00: blood [place] LITE 00 glucose Medical STRIPS) 4-5 times Branch strip daily. Polyethylen 2020-0 Yes [id number] 17g Take 1 Univers e Glycol 2-09 Packet by ity of 3350 17 00:00: mouth [place] gram powder 00 every 24 Medi jose c (twenty-fo Branch ur) hours as needed for Constipati on. sennosides- 0 Yes [id number] 1{tbl} Take 1 Univers docusate 2-09 tablet by ity of sodium 00:00: mouth 2 [place] 8.6-50 mg 00 (two) Medical per tablet times Branch daily. hydrocortis 0 Yes [id number] Apply to Univers one 2.5 % 2- affected ity of cream 00:00: area(s) 2 [place] 00 (two) Medical times Branch daily. blood sugar 0 Yes [id number] Use to [facility] diagnostic 11-21 check ity of (FREESTYLE 00:00: blood [place] LITE 00 glucose Medical STRIPS) 4-5 times Branch strip daily. Polyethylen 2020-0 Yes [id number] 17g Take 1 Univers e Glycol 2-09 Packet by ity of 3350 17 00:00: mouth [place] gram powder 00 every 24 Medi jose c (twenty-fo Branch ur) hours as needed for Constipati on. sennosides- 2020-0 Yes [id number] 1{tbl} Take 1 Univers docusate 2-09 tablet by ity of sodium 00:00: mouth 2 [place] 8.6-50 mg 00 (two) Medical per tablet times Branch daily. hydrocortis 2020-0 Yes [id number] Apply to Univers one 2.5 % 2-09 affected ity of cream 00:00: area(s) 2 [place] 00 (two) Medical times Branch daily. blood sugar Yes [id number] Use to [facility] diagnostic 11-21 check ity of (FREESTYLE 00:00: blood [place] LITE 00 glucose Medical STRIPS) 4-5 times Branch strip daily. Polyethylen Yes [id number] 17g Take 1 Univers e Glycol 11-21 Packet by ity of 3350 17 00:00: mouth [place] gram powder 00 every 24 Medi jose c (twenty-fo Branch ur) hours as needed for Constipati on. Insulin 2020- No [id number] 15U inject 15 Univers Glargine 11-21 Units ity of (LANTUS 00:00: 05:59 under the [place] SOLOSTAR 00 :00 skin every Medic al U-100 morning Branch INSULIN) for 30 100 unit/mL days. (3 mL) injection venlafaxine 2020- No [id number] 150mg Take 1 Univers XR 150 mg 11-21 capsule by ity of 24 hr 00:00: 05:59 mouth 3 [place] capsule 00 :00 (three) Medical times Branch daily for 30 days. Insulin 2020- No [id number] 15U inject 15 Univers Glargine 11-21 Units ity of (LANTUS 00:00: 05:59 under the [place] SOL[place] 00 :00 skin every Medic al U-100 morning Branch INSULIN) for 30 100 unit/mL days. (3 mL) injection venlafaxine 2020- No [id number] 150mg Take 1 Univers XR 150 mg 11-21 capsule by ity of 24 hr 00:00: 05:59 mouth 3 [place] capsule 00 :00 (three) Medical times Branch daily for 30 days. triamcinolo 2020- No [id number] Apply to [facility] ne 11-21 area(s) 2 ity of acetonide 00:00: 00:00 (two) [place] 0.1 % cream 00 :00 times Medical daily. Branch cephALEXin 2020- No [id number] 1000mg Take 2 Univers 500 mg 11-21- capsules ity of capsule 00:00: 00:00 by mouth 3 [place] 00 :00 (three) Medical times Branch daily. doxycycline 2020- No [id number] 100mg Take 1 Univers hyclate 100 11-21 capsule by i ty of mg capsule 00:00: 00:00 mouth [place] 00 :00 every 12 Medical (twelve) Branch hours. lactobacill 2020- No [id number] 1{tbl} Take 1 Univers us 11-21 tablet by ity of acidophilus 00:00: 00:00 mouth 2 [place] 25 million 00 :00 (two) Medical cell -100 times Branch mg captab daily. bisacodyL 2020- No [id number] 10mg Insert 1 Univers 10 mg 11-21 Suppositor ity of suppository 00:00: 00:00 y into [place] 00 :00 rectum at Medical bedtime as Branch needed for Constipati on. ALPRAZolam 2020- No [id number] .25mg Take 1 Univers (XANAX) 11-21 tablet by ity of 0.25 mg 00:00: 00:00 mouth 2 [place] tablet 00 :00 (two) Medical times Branch daily. hydrOXYzine 2020- No [id number] 20mg Take 2 Univers 10 mg 11-21 [...] Units ity of (LANTUS 01:13: under the [place] SOLOSTAR) 36 skin. Medical 100 unit/mL Branch [...] Units ity of (LANTUS 01:13: under the [place] SOLOSTAR) 36 skin. Medical 100 unit/mL Branch (3 mL) InPn INSULIN 2019-10 Yes 5U inject 5 Univer s ASPART 1-12 Units ity of (NOVOLOG 01:13: under the [facility] FLEXPEN SC) 36 skin. Medical Branch ALPRAZolam 2019-10 Yes .25mg Take 0.25 U nivers (XANAX) 1-12 mg by ity of 0.25 mg 01:13: mouth 2 [place] tablet 36 (two) Medical times Branch daily. HYDROmorpho 2019- Yes 4mg Take 4 mg U nivers ne 4 mg 1-12 by mouth 2 ity of tablet 01:13: (two) [place] 36 times Medical daily. Branch HYDROMORPHO 2019-10 [...] Units ity of (LANTUS 01:13: under the [place] SOLOSTAR) 36 skin. Medical 100 unit/mL Branch (3 mL) In INSULIN 2019- Yes 5U inject 5 Univer s ASPART 1-12 Units ity of (NOVOLOG 01:13: under the [facility] FLEXPEN SC) 36 skin. Medical Branch ALPRAZolam [...] 3 ity of 6 mg 01:13: (three) [place] capsule 36 times Medical daily. Branch Insulin 2019-10 Yes 15U inject 15 Unive rs Glargine 1-12 Units ity of (LANTUS 01:13: under the [facility]) 36 skin. Medical 100 unit/mL Branch (3 mL) In INSULIN 2019- Yes 5U inject 5 Univer s ASPART 1-12 Units ity of (NOVOLOG 01:13: under the [facility] FLEXPEN MT) 36 skin. Medical Branch ALPRAZolam 2019- Yes [...] Units ity of (LANTUS 01:13: under the [place] SOLOSTAR) 36 skin. Medical 100 unit/mL Branch [...] Units ity of (LANTUS 01:13: under the [place] SOLOSTAR) 36 skin. Medical 100 unit/mL Branch [...] mouth ity of ORAL 20:04: 00:00 daily. [place] 34 :00 Medical Branch hydrocortis 2019-10 Yes [id number] Apply to Univers one 2.5 % 1-11 affected ity of cream 00:00: area(s) 2 [place] 00 (two) Medical times Branch daily. hydrOXYzine 2019-10 Yes [id number] 20mg Take 2 Univers 10 mg 1-11 tablets by ity of tablet 00:00: mouth [place] 00 every 8 Medical (eight) Branch hours as needed for Itching or Anxiety. Polyethylen 2019-10 Yes [id number] 17g Take 1 Univers e Glycol 1-11 Packet by ity of 3350 17 00:00: mouth [place] gram powder 00 every 24 Medi jose c (twenty-fo Branch ur) hours as needed for Constipati on. hydrocortis 2019-10 Yes [id number] Apply to Univers one 2.5 % 1-11 affected ity of cream 00:00: area(s) 2 [place] 00 (two) Medical times Branch daily. hydrOXYzine 2019-10 Yes [id number] 20mg Take 2 Univers 10 mg 1-11 tablets by ity of tablet 00:00: mouth [place] 00 every 8 Medical (eight) Branch hours as needed for Itching or Anxiety. Polyethylen 2019- Yes [id number] 17g Take 1 Univers e Glycol 1-11 Packet by ity of 3350 17 00:00: mouth [place] gram powder 00 every 24 Medi jose c (twenty-fo Branch ur) hours as needed for Constipati on. hydrocortis 2019-10 Yes [id number] Apply to Univers one 2.5 % 1-11 affected ity of cream 00:00: area(s) 2 [place] 00 (two) Medical times Branch daily. hydrOXYzine 2019- Yes [id number] 20mg Take 2 Univers 10 mg 1-11 tablets by ity of tablet 00:00: mouth [place] 00 every 8 Medical (eight) Branch hours as needed for Itching or Anxiety. Polyethylen 2020- Yes [id number] 17g Take 1 Univers e Glycol 1-11 Packet by ity of 3350 17 00:00: mouth [place] gram powder 00 every 24 Medi jose c (twenty-fo Branch ur) hours as needed for Constipati on. hydrocortis 2019- Yes [id number] Apply to Univers one 2.5 % 1-11 affected ity of cream 00:00: area(s) 2 [place] 00 (two) Medical times Branch daily. hydrOXYzine 2019- Yes [id number] 20mg Take 2 Univers 10 mg 1-11 tablets by ity of tablet 00:00: mouth [place] 00 every 8 Medical (eight) Branch hours as needed for Itching or Anxiety. Polyethylen 2019- Yes [id number] 17g Take 1 Univers e Glycol 1-11 Packet by ity of 3350 17 00:00: mouth [place] gram powder 00 every 24 Medi jose c (twenty-fo Branch ur) hours as needed for Constipati on. hydrocortis 2019- Yes [id number] Apply to Univers one 2.5 % 1-11 affected ity of cream 00:00: area(s) 2 [place] 00 (two) Medical times Branch daily. hydrOXYzine 2019- Yes [id number] 20mg Take 2 Univers 10 mg 1-11 tablets by ity of tablet 00:00: mouth [place] 00 every 8 Medical (eight) Branch hours as needed for Itching or Anxiety. Polyethylen 2019- Yes [id number] 17g Take 1 Univers e Glycol 1-11 Packet by ity of 3350 17 00:00: mouth [place] gram powder 00 every 24 Medi jose c (twenty-fo Branch ur) hours as needed for Constipati on. hydrocortis 2019- Yes [id number] Apply to Univers one 2.5 % 1-11 affected ity of cream 00:00: area(s) 2 [place] 00 (two) Medical times Branch daily. hydrOXYzine 2019- Yes [id number] 20mg Take 2 Univers 10 mg 1-11 tablets by ity of tablet 00:00: mouth [place] 00 every 8 Medical (eight) Branch hours as needed for Itching or Anxiety. Polyethylen 2019-10 Yes [id number] 17g Take 1 Univers e Glycol 1-11 Packet by ity of 3350 17 00:00: mouth [place] gram powder 00 every 24 Medi jose c (twenty-fo Branch ur) hours as needed for Constipati on. hydrocortis 2019-10 Yes [id number] Apply to [facility] one 2.5 % 1-11 affected ity of cream 00:00: area(s) 2 [place] 00 (two) Medical times Branch daily. hydrOXYzine 2019-10 Yes [id number] 20mg Take 2 Univers 10 mg 1-11 tablets by ity of tablet 00:00: mouth [place] 00 every 8 Medical (eight) Branch hours as needed for Itching or Anxiety. Polyethylen 2019-10 Yes [id number] 17g Take 1 Univers e Glycol 1-11 Packet by ity of 3350 17 00:00: mouth [place] gram powder 00 every 24 Medi jose c (twenty-fo Branch ur) hours as needed for Constipati on. triamcinolo 2019-10 2020- No [id number] Apply to [facility] 10-23 area(s) 2 ity of acetonide 00:00: 05:59 (two) [place] 0.1 % cream 00 :00 times Medical daily for Branch 14 days. triamcinolo 2019-10 2020- No [id number] Apply to [facility] 10-23 area(s) 2 ity of acetonide 00:00: 05:59 (two) [place] 0.1 % cream 00 :00 times Medical daily for Branch 14 days. triamcinolo 2019-10 2020- No [id number] Apply to [facility] 10-23 area(s) 2 ity of acetonide 00:00: 05:59 (two) [place] 0.1 % cream 00 :00 times Medical daily for Branch 14 days. KCL 2019-10 2020- No 40meq 40 mEq, Univers (KLOR-CON 1- 11-10 Oral, ONCE ity of M20) tablet 16:15: 16:23 NOW, 1 Jeff as 40 mEq 00 :00 dose, [facility] Medical 08/22/20 Branch at 1015, Routine HYDROmorpho 2019-10 Yes 1mg 1 mg, Unive rs ne 1-10 Oral, ity of (DILAUDID) 15:07: Q6HPRN, [place] tablet 1 mg 53 Starting Medi jose c Tue Branch 08/22/20 at 0907, Until Discontinu ed, Routine, Pain (scale 7-10) hydrocortis 2019- Yes Topical Uni vers one 2.5 % 1-10 (Apply To ity o f cream 02:00: Affected [place] 00 Areas), Medical BID, First Branch dose on [facility] 08/21/20 at 2000, Until Discontinu ed, Routine triamcinolo 2019- Yes Topical, Un toi ne 1-10 BID, First ity of acetonide 02:00: dose on [place] (TRIDERM) 00 [facility] Medical 0.1 % cream 08/21/20 at Br anch 2000, Until Discontinu ed, Routine hydrOXYzine 2019-10 Yes 20mg 20 mg, Univ ers (ATARAX) 09 Oral, ity of tablet 20 17:39: Q8HPRN, [place] mg 12 Starting Medical [facility] 08/21/20 at 1139, Until Discontinu ed, Routine, Itching, Anxiety sennosides- 2019-10 Yes 1{tbl} 1 tablet, Univers docusate 10-21 Oral, ity of sodium 15:00: DAILY, [place] (SENOKOT-S) 00 First dose Me dical 8.6-50 mg on [facility] per tablet 08/21/20 at 1 tablet 0900, Until Discontinu ed, Routine hydrocortis 2019-10 2020- No Topical Un toi one 1 % 10-21 (Apply To ity of cream 15:00: 22:54 Affected [place] 00 :48 Areas), Medical DAILY, Branch First dose on [facility] 08/21/20 at 0900, Until Discontinu ed, Routine venlafaxine 2019-10 Yes 150mg 150 mg, Un toi XR (EFFEXOR 09 Oral, TID, it y of XR) 24 hr 14:00: [place] capsule 150 00 on [facility] Medica l mg 08/21/20 at Branch 0800, Until Discontinu ed, Routine heparin 2019- Yes 5000U 5,000 Univers (porcine) 1-09 Units, ity of injection 14:00: Subcutaneo [place] 5,000 Units 00 us, Q12H, Med ical First dose Branch on [facility] 08/21/20 at 0800, Until Discontinu ed, Routine diphenhydrA 2019-10 2020- No 25mg 25 mg, Uni vers MINE 10-21 Oral, ity of (BENADRYL) 12:56: 17:39 Q8HPRN, [place] tablet 25 59 :43 Starting Medica l mg [facility] 08/21/20 at 0656, Until [facility] 08/21/20 at 1139, Routine, Itching, Mild Rash, Congestion /Allergies , alternate with hydroxyzin e hydrOXYzine 2019-10- No 10mg 10 mg, Uni vers (ATARAX) 10-21 Oral, ity of tablet 10 10:20: 12:57 Q6HPRN, [place] mg 22 :12 Starting [facility] 08/21/20 at 0420, Until [facility] 08/21/20 at 0657, Routine, Itching, Anxiety Sliding 2019-10 Yes Subcutaneo Univ ers Scale -09 us, Q4H, ity of Insulin - 10:00: [place] Aspart 00 (after Medical (NOVOLOG) + last Branch Fsbg modificati Testing on) on [facility] 08/21/20 at 0400, Until Discontinu ed, Routine lidocaine 5 2019-10 2020- No Topical, U nivers % ointment 10-21 ONCE, 1 ity o f 09:30: 09:14 dose, [facility] 00 :00 08/21/20 at [facility] 0330, Branch Routine Polyethylen 2019-10 Yes 17g 17 g, [facility] rs e Glycol 10-21 Oral, ity of 3350 08:29: H90KINU, [place] (MIRALAX) Starting Medica l powder 17 g [facility] 08/21/20 at 0229, Until Discontinu ed, Routine, Constipati on lanolin 2019-10 Yes Topical, [facility]-- 10-21 PRN, ity of w.pet-ceres 08:26: [place] (EUCERIN) 30 [facility] cream 08/21/20 at Branch 0226, Until Discontinu ed, Routine, Dermatitis /Rash ALPRAZolam 2019-10 Yes .25mg 0.25 mg, Un toi (XANAX) 10-21 Oral, ity of tablet 0.25 08:25: BIDPRN, [place] mg 41 Starting [facility] 08/21/20 at 0225, Until Discontinu ed, Routine, [...] tablet 650 24 Starting Medic al mg [facility] Branch 08/21/20 at 0145, Until Discontinu ed, Routine, Pain (scale 1-3) sotalol 2019-10- No Take by Unive rs (BETAPACE) 10-21 mouth ity of 240 mg 07:43: 00:00 every 12 [place] tablet 30 :00 (twelve) Medical hours. Branch blood sugar Yes Use to [place] ers diagnostic -25 check ity of (FREESTYLE 00:00: blood [place] LITE 00 glucose Medical STRIPS) 4-5 times Branch strip daily. blood sugar Yes Use to [place] ers diagnostic 4-25 check ity of (FREESTYLE 00:00: blood [place] LITE 00 glucose Medical STRIPS) 4-5 times Branch strip daily. blood sugar Yes Use to [place] ers diagnostic 4-25 check ity of (FREESTYLE 00:00: blood [place] LITE 00 glucose Medical STRIPS) 4-5 times Branch strip daily. blood sugar Yes Use to [place] ers diagnostic 4-25 check ity of (FREESTYLE 00:00: blood [place] LITE 00 glucose Medical STRIPS) 4-5 times Branch strip daily. blood sugar Yes Use to [place] ers diagnostic 4-25 check ity of (FREESTYLE 00:00: blood [place] LITE 00 glucose Medical STRIPS) 4-5 times Branch strip daily. blood sugar Yes Use to [facility] ers diagnostic 4-25 check [...] 13:00:00 148 mm[Hg] Univer sity of pressure [facility] Diastolic blood 2021-08-22 13:00:00 84 mm[Hg] Unive rsity of [facility] Heart rate 2021-08-22 13:00:00 103 /min [facility] Respiratory rate 2021-08-22 13:00:00 18 /min [facility] Oxygen saturation in 2021-08-22 13:00:00 95 /min University of Arterial blood by [facility] Pulse oximetry Branch Body temperature 2021-08-22 12:22:00 36.72 [place] [facility] Systolic blood 2020-12-17 18:35:00 139 mm[Hg] Univer sity of pressure [facility] Diastolic blood 2020-12-17 18:35:00 87 mm[Hg] Unive rsity of [facility] Heart rate 2020-12-17 18:35:00 110 /min [facility] Body temperature 2020-12-17 18:35:00 37.72 [place] [facility] Respiratory rate 2020-12-17 18:35:00 18 /min [facility] Oxygen saturation in 2020-12-17 18:35:00 93 /min University of Arterial blood by [facility] Pulse oximetry Branch Body height 2020-12-12 08:21:[address] [facility] Body weight 2020-12-12 08:21:[address] [facility] BMI 2020-12-12 08:21:00 31.80 kg/m2 [facility] Systolic blood 2020-12-17 18:35:00 139 mm[Hg] Univer sity of pressure [place] [facility] Diastolic blood 2020-12-17 18:35:00 87 mm[Hg] Unive rsity of pressure [place] [facility] Heart rate 2020-12-17 18:35:00 110 /min Universi ty of [place] [facility] [place] Body temperature 2020-12-17 18:35:00 37.72 [place] Univ ersity of [place] [facility] Respiratory rate 2020-12-17 18:35:00 18 /min Univ ersity of [place] [facility] Oxygen saturation in 2020-12-17 18:35:00 93 /min University of Arterial blood by [facility] Pulse oximetry Branch Body height 2020-12-12 08:21:00 180.3 cm Universi ty of [place] [facility] [place] Body weight 2020-12-12 08:21:00 103.42 kg Universi ty of [place] [facility] BMI 2020-12-12 08:21:00 31.80 kg/m2 Universi ty of [place] [facility] Systolic blood 2020-08-23 19:27:00 140 mm[Hg] Univer sity of pressure [place] [facility] Diastolic blood 2020-08-23 19:27:00 79 mm[Hg] Unive rsity of pressure [place] [facility] Heart rate 2020-08-23 19:27:00 99 /min Universi ty of [place] [facility] Body temperature 2020-08-23 19:27:00 36 [place] Univ ersity of [place] [facility] Respiratory rate 2020-08-23 19:27:00 18 /min Univ ersity of [place] [facility] Oxygen saturation in 2020-08-23 19:27:00 93 /min University of Arterial blood by [place] Tellja jsoe c Pulse oximetry Branch Body weight 2020-08-21 07:20:00 104.962 kg Universi ty of [place] [facility] BMI 2020-08-21 07:20:00 32.27 kg/m2 Universi ty [facility] [place] [facility] Systolic blood 2020-08-23 19:27:00 140 mm[Hg] Univer sity of pressure [place] [facility] Diastolic blood 2020-08-23 19:27:00 79 mm[Hg] Unive rsity of pressure [place] [facility] Heart rate 2020-08-23 19:27:00 99 /min Universi ty [facility] [place] [facility] Body temperature 2020-08-23 19:27:00 36 [facility] Respiratory rate 2020-08-23 19:27:00 18 /min [facility] O[facility] saturation in 2020-08-23 19:27:00 93 /min [facility] Arterial blood by [facility] Pulse oximetry Branch Body weight 2020-08-21 07:20:[address] [facility] BMI 2020-08-21 07:20:00 32.27 kg/m2 [facility] Procedures Procedure Date / Time Performing Clinician Source Performed POCT GLUCOSE (AUTOMATED) 2020-12-17 15:42:00 Harrison[facility] BASIC METABOLIC PANEL 2020-12-17 10:45:00 Paul Bean [facility] (NA, K, CL, CO2, GLUCOSE, [facility] Medica l Branch BUN, CREATININE, CA) CBC WITH DIFF 2020-12-17 10:45:[address] [facility] POCT GLUCOSE (AUTOMATED) 2020-12-17 02:36:00 Harrison, [facility]al [facility] XR TIBIA FIBULA 2 VW LEFT 2020-12-16 23:38:00 [facility] Bean [facility] POCT GLUCOSE (AUTOMATED) 2020-12-16 23:20:00 Harrison, [facility]al [facility] POCT GLUCOSE (AUTOMATED) 2020-12-16 20:10:00 Harrison, Premal G Uni versity of [facility] POCT GLUCOSE (AUTOMATED) 2020-12-16 14:43:00 Harrison, [facility]al [facility] BASIC METABOLIC PANEL 2020-12-16 13:51:00 Paul Bean [facility] (NA, K, CL, CO2, GLUCOSE, [place] [facility] Branch BUN, CREATININE, CA) CBC WITH DIFF 2020-12-16 13:51:[address] [facility] POCT GLUCOSE (AUTOMATED) 2020-12-16 04:00:00 Harrison, [facility] POCT GLUCOSE (AUTOMATED) 2020-12-16 00:14:00 Harrison, Premal G Uni versity of [facility] CT CHEST PULMONARY 2020-12-15 22:29:38 Paul Bean [facility] ANGIOGRAM [facility] POCT GLUCOSE (AUTOMATED) 2020-12-15 19:26:00 Harrison, Premal G Uni versity of [facility] POCT GLUCOSE (AUTOMATED) 2020-12-15 15:13:00 Harrison, Premal G Uni versity of [facility] HB ECG ROUTINE & RHYTHM 2020-12-15 14:25:27 Cailin Romo [facility] Branch MAGNESIUM 2020-12-15 12:01:[address] [facility] BASIC METABOLIC PANEL 2020-12-15 12:01:00 Paul Bean [facility] (NA, K, CL, CO2, GLUCOSE, [place] [facility] BUN, CREATININE, CA) CBC WITH DIFF 2020-12-15 12:01:[address] [facility] POCT GLUCOSE (AUTOMATED) 2020-12-15 03:57:00 Harrison, Premal G Uni versity of [facility] POCT GLUCOSE (AUTOMATED) 2020-12-14 23:31:00 Harrison, Premal G Uni versity of [facility] POCT GLUCOSE (AUTOMATED) 2020-12-14 19:08:00 Harrison, Premal G Uni versity of [facility] POCT GLUCOSE (AUTOMATED) 2020-12-14 15:11:00 Harrison, Premal G Uni versity of [facility] POCT GLUCOSE (AUTOMATED) 2020-12-14 02:36:00 Harrison, Premal G Uni versity of [facility] POCT GLUCOSE (AUTOMATED) 2020-12-13 23:32:00 Harrison, Premal G Uni versity of [facility] POCT GLUCOSE (AUTOMATED) 2020-12-13 18:08:00 Harrison, Premal G Uni versity of [facility] BASIC METABOLIC PANEL 2020-12-13 15:39:00 Paul Bean [facility] (NA, K, CL, CO2, GLUCOSE, [place] [facility] BUN, CREATININE, CA) CBC WITH DIFF 2020-12-13 15:39:[address] [facility] POCT GLUCOSE (AUTOMATED) 2020-12-13 14:06:00 Harrison, [facility]al [facility] POCT GLUCOSE (AUTOMATED) 2020-12-13 03:07:00 Harrison, [facility]al [facility] POCT GLUCOSE (AUTOMATED) 2020-12-12 23:52:00 Harrison, [facility]al [facility] POCT GLUCOSE (AUTOMATED) 2020-12-12 20:28:00 Harrison, [facility]al [facility] POCT GLUCOSE (AUTOMATED) 2020-12-12 19:14:00 Harrison, [facility]al [facility] POCT GLUCOSE (AUTOMATED) 2020-12-12 14:33:00 Harrison, [facility]al [facility] MAGNESIUM 2020-12-12 08:58:[address] [facility] BASIC METABOLIC PANEL 2020-12-12 08:58:00 Paul Bean [facility] (NA, K, CL, CO2, GLUCOSE, [facility] [facility] BUN, CREATININE, CA) CBC WITH DIFF 2020-12-12 08:58:[address] [facility] US ABDOMEN LIMITED 2020-12-12 06:32:26 Paul Bean [facility] POCT GLUCOSE (AUTOMATED) 2020-12-12 03:40:00 Harrison, Premal G Uni [facility] POCT GLUCOSE (AUTOMATED) 2020-12-12 00:06:00 Harrison, Premal Uni [facility] XR HIPS 3 VW LEFT 2020-12-11 20:20:00 Darnell Beanaham Sivakumar [facility] HB ECG ROUTINE & RHYTHM 2020-12-11 20:04:06 Cailin Romo [facility] VITAMIN B6, PLASMA 2020-12-11 19:17:00 [facility] POCT GLUCOSE (AUTOMATED) 2020-12-11 19:06:00 Rene Harrison [facility] CREATINE KINASE 2020-12-11 18:22:00 Clarisse Hannon [facility] VITAMIN B12, LEVEL 2020-12-11 18:22:00 Paul Bean [facility] FOLATE 2020-12-11 18:22:[address] [facility] THYROID STIMULATING 2020-12-11 18:22:00 Cailin Romo [facility] HORMONE [facility] PROCALCITONIN 2020-12-11 18:22:00 Vikas [facility] VITAMIN B1 (THIAMINE), 2020-12-11 18:22:00 Paul Bean Sivakumar [facility] WHOLE BLOOD [facility] CT HEAD WO CONTRAST 2020-12-11 14:07:[address] [facility] URINALYSIS 2020-12-11 13:44:00 Singer [facility] URINE CULTURE 2020-12-11 13:44:00 Singer [facility] COVID-19 (ID NOW RAPID 2020-12-11 12:31:00 Paco Lacey [facility] TESTING) [facility] LAB ONLY COVID 2020-12-11 12:31:00 Singer Located within [facility] XR CHEST 1 VW 2020-12-11 12:07:24 Singer [facility] BLOOD CULTURE SCREEN 2020-12-11 12:02:00 Paco Lacey [facility] MAGNESIUM 2020-12-11 12:02:[address] [facility] FERRITIN SERUM 2020-12-11 12:02:[address] [facility] COMP. METABOLIC PANEL 2020-12-11 12:02:00 [facility] ([id number]) Medical Branch CBC WITH DIFF 2020-12-11 12:02:00 Singer [facility] LACTIC ACID WHOLE BLOOD 2020-12-11 12:02:00 Paco L[facility] BLOOD CULTURE SCREEN 2020-12-11 11:42:00 Paco Lacey [facility] EMERGENCY SERVICES 2020-12-11 06:01:00 Doctor Tabitha, [facility] AGREEMENTS AND [place] [facility] AUTHORIZATIONS HOSPITAL ADMISSION 2020-12-11 06:01:00 Doctor Tabitha [facility] Name Medical [place] [facility] - OTHER 2020-11-11 06:01:00 Doctor Tabitha [facility] Name Medical [facility] HEALTH - OTHER 2020-10-30 06:01:00 Doctor Tabitha [facility] Name Medical [place] EXTERNAL PROVIDER RECORDS 2020-09-01 06:01:00 Doctor Tabitha [facility] Name [facility] POCT GLUCOSE (AUTOMATED) 2020-08-23 18:09:00 [facility] POCT GLUCOSE (AUTOMATED) 2020-08-23 14:14:00 Kelly [facility] MAGNESIUM 2020-08-23 11:18:00 Bartlett [facility] BASIC METABOLIC PANEL 2020-08-23 11:18:00 [facility] (NA, K, CL, CO2, GLUCOSE, Medica l Branch BUN, CREATININE, CA) CBC WITH DIFF 2020-08-23 11:18:00 [facility] POCT GLUCOSE (AUTOMATED) 2020-08-23 10:21:00 Kelly [facility] POCT GLUCOSE (AUTOMATED) 2020-08-23 05:55:00 Kelly [facility] POCT GLUCOSE (AUTOMATED) 2020-08-23 03:00:00 Kelly [facility] POCT GLUCOSE (AUTOMATED) 2020-08-22 23:38:00 Kelly [facility] POCT GLUCOSE (AUTOMATED) 2020-08-22 19:04:00 Kelly [facility] POCT GLUCOSE (AUTOMATED) 2020-08-22 13:49:00 Kelly [facility] MAGNESIUM 2020-08-22 10:10:00 Bartlett [facility] HEPATIC FUNCTION PANEL 2020-08-22 10:10:00 JillAguila [facility] ([id number]) (ALB,T.PRO,BILI Medical Branch T,BU/BC,ALT,AST,ALK PHOS) BASIC METABOLIC PANEL 2020-08-22 10:10:00 Bartlett, [facility] (NA, K, CL, CO2, GLUCOSE, Medica l Branch BUN, CREATININE, CA) LIPID PANEL ([id number])(TOTAL 2020-08-22 10:10:00 Bartlett, [facility] CHOLESTEROL, [facility] TRIGLYCERIDES, HDL) CBC WITH DIFF 2020-08-22 10:10:00 [facility] POCT GLUCOSE (AUTOMATED) 2020-08-22 10:10:00 Kelly [facility] POCT GLUCOSE (AUTOMATED) 2020-08-22 07:13:00 Kelly [facility] POCT GLUCOSE (AUTOMATED) 2020-08-22 02:24:00 Kelly [facility] POCT GLUCOSE (AUTOMATED) 2020-08-21 23:40:00 Kelly [facility] POCT GLUCOSE (AUTOMATED) 2020-08-21 18:10:00 Kelly [facility] POCT GLUCOSE (AUTOMATED) 2020-08-21 13:39:00 Kelly [facility] ETHANOL 2020-08-21 12:35:00 Jos Quiroz [facility] ACTIVATED PARTIAL 2020-08-21 12:35:00 Padmini Kelly [facility] THRMPLAS [facility] GALV ONLY - SYPHILIS 2020-08-21 12:35:00 Kelly [facility] IGG/IGM [facility] LACTATE DEHYDROGENASE 2020-08-21 10:09:00 Bartlett, [facility] GALV/CLC ONLY - URINE 2020-08-21 10:09:00 Jos Quiroz [facility] DRUG (IMMUNOASSAY) - 4 ER Medica l Branch PANEL URINALYSIS 2020-08-21 10:09:00 Ramya, [facility] URINE CULTURE 2020-08-21 10:09:00 Bartlett, [facility] PROCALCITONIN 2020-08-21 10:09:00 Ramya, [facility] POCT GLUCOSE (AUTOMATED) 2020-08-21 09:41:00 Kelly [facility] PROTHROMBIN TIME / INR 2020-08-21 08:32:00 Bartlett, [facility] ACTIVATED PARTIAL 2020-08-21 08:32:00 Ramya, [facility] C-REACTIVE PROTEIN 2020-08-21 08:31:00 Ramya, [facility] HEPATIC FUNCTION PANEL 2020-08-21 08:31:00 Bartlett, [facility] ([id number]) (ALB,T.PRO,BILI Medical Branch T,BU/BC,ALT,AST,ALK PHOS) BASIC METABOLIC PANEL 2020-08-21 08:31:00 Bartlett, [facility] (NA, K, CL, CO2, GLUCOSE, [facility] [place] BUN, CREATININE, CA) SEDIMENTATION RATE 2020-08-21 08:31:00 Ramya, [facility] CBC WITH DIFF 2020-08-21 08:31:00 Bartlett, [facility] GLYCOSYLATED HEMOGLOBIN 2020-08-21 08:31:00 Ramya, [facility] (A1C) [facility] HIV 1/2 AG-AB WITH REFLEX 2020-08-21 08:31:00 [facility] COVID-19 (ID NOW RAPID 2020-08-21 08:20:00 Ramya, [facility] TESTING) Medical Branch LAB ONLY COVID 2020-08-21 08:20:00 Bartlett, Haily [place] [facility] Encounters Start End Encounter Admission Attending Care Care Encounter Source Date/Time Date/Time Type Type Clinicians Facility Department ID 2020-08-21 Inpatient Shayy [facility] [id number] Univers 01:07:00 KELLY cantu [facility] 2021-08-22 2021-08-22 Emergency [id number] Univers 06:21:00 08:02:00 SWEETIE cantu [facility] 2021-08-22 2021-08-22 [facility] [id number] Univers 06:21:00 08:02:00 Sweetie OREN [id number] i ty of [facility] [id number] [id number] [facility] 084 Branch 2021-08-09 2021-08-09 Outpatient JACQUELYN HAINES [facility] [id number] [facility] 10:27:03 10:27:03 ADRIANA lopez of Medicin e 2020-12-28 2020-12-28 Telephone [facility] [id number] 00:00:00 00:00:00 Calvin H PRIMARY [id number] CARE [id number] PAVILLION [id number] 2020-12-28 2020-12-28 Telephone [facility] [id number] Univers 00:00:00 00:00:00 Calvin H PRIMARY [id number] it y of CARE [id number] [place] [facility] [id number] Mo dical 220 Branch 2020-12-19 2020-12-19 Transition Tuan Peters [id number] 00:00:00 00:00:00 of Care Ruchi Braswell [id number] [place] [id number] 2020-12-19 2020-12-19 Transition Tuan Peters [id number] Univers 00:00:00 00:00:00 of Care Ruchi Braswell [id number] it y of [place] [id number] [place] [id number] [facility] 403 Branch 2020-12-11 2020-12-17 [facility] Paco Lacey [id number] 05:11:00 16:00:00 Encounter Rene Harrison [place] [id number] [facility] [id number] [facility] 2020-12-11 2020-12-17 [facility] Paco Ayleen [id number] [facility] 05:11:00 16:00:00 Encounter Rene Harrison Monique [id number] ity of [facility] [id number] [place] [id number] [place] [id number] [place] 2020-12-11 2020-12-11 Emergency [facility] [id number] Univers 05:11:00 05:11:00 [facility] 2020-11-16 2020-11-16 Emergency X [facility] ERT [id number] Univers 09:31:00 09:31:00 [facility] 2020-11-11 2020-11-11 Orders Doctor CUI [id number] 00:00:00 00:00:00 Only Unassigned, MONIQUE [id number] [place] [facility] [id number] [id number] 2020-11-11 2020-11-11 Orders Doctor CUI [id number] Univers 00:00:00 00:00:00 Only Unassigned, MONIQUE [id number] ity of [place] [facility] [id number] Jeff as [id number] [address] 2020-11-07 2020-11-07 Telephone Wilder [facility] [id number] 00:00:00 00:00:00 [facility] [place] [id number] [place] [id number] Professio [id number] [address] 2020-11-07 2020-11-07 Telephone Wilder [facility] [id number] [facility] 00:00:00 00:00:00 Sendsiobhan Tobin [id number] ity of [place] 4.2.7.2.686 [place] Profess[place] [id number] [address] 2020-10-30 2020-10-30 Orders Doctor BASILIA [id number] 00:00:00 00:00:00 Only Unassigned, MONIQUE [id number] [facility] [id number] [id number] [facility] 2020-10-30 2020-10-30 Orders Doctor CUI [id number] Univers 00:00:00 00:00:00 Only Unassigned, MONIQUE [id number] ity of [place] [facility] [id number] Jeff as [id number] [address] 2020-09-26 2020-09-26 Telephone [facility] 1.2.840.114 [id number] 00:00:00 00:00:00 [facility] [id number] CLINICS [id number] [id number] [facility] 2020-09-26 2020-09-26 Telephone [facility] [id number] [facility] 00:00:00 00:00:00 [facility] [id number] i ty of CLINICS [id number] [place] [id number] [address] 2020-09-01 2020-09-01 Orders Doctor CUI 1.2.840.114 [id number] 00:00:00 00:00:00 Only Unassigned, MONIQUE [id number] [facility] 4.2.7.2.686 [id number] [facility] 2020-09-01 2020-09-01 Orders Doctor BASILIA [id number] Univers 00:00:00 00:00:00 Only Unassigned, MONIQUE [id number] ity of [place] [facility] [id number] Jeff as [id number] [facility] 009 Branch 2020-08-25 2020-08-25 Transition Tuan Peters 1.2.840.114 [id number] 00:00:00 00:00:00 of Care Ruchi Garciay 350.1.13.10 [place] 4.2.7.2.686 [id number] [facility] 2020-08-25 2020-08-25 Transition Tuan Peters 1.2.840.114 [id number] [facility] 00:00:00 00:00:00 of Care Ruchi Garciay 350.1.13.10 it y of [place] [id number] [address] 2020-08-21 2020-08-23 [facility] Ayleen 1.2.840.114 [id number] 01:07:00 18:35:00 Encounter Kelly Amaya 350.1.13.10 [facility] 4.2.7.2.686 [id number] [facility] 2020-08-21 2020-08-[address] [facility] 1. 2.840.114 [id number] [facility] 01:07:00 18:35:00 Encounter Mukul Gallardo Monique 350.1.13. 10 ity [facility] 4.2.7.2.686 Jeff as [phone] [address] Results Test Description Test Time Test Comments Results Result Comments Source POCT GLUCOSE (AUTOMATED) 2020-12-17 15:43:35 Test Item Value Reference Range Interpretation Comme nts POCT GLU (test code = 3180611090) 129 mg/dL 70-110 H Lab Interpretation (test code = 57388-7) Abnormal [facility] METABOLIC PANEL (NA, K, CL, CO2, GLUCOSE, BUN, CREATININE, CA)2020-12-17 11:45:07 Test Item Value Reference Range Interpretation Comments NA (test code = 137 mmol/L 135-145 0515021833) K (test code = 3.5 mmol/L 3.5-5.0 5023215847) CL (test code = 103 mmol/L 98-108 2218464136) CO2 TOTAL (test code = 26 mmol/L 23-31 0928514319) AGAP (test code = 2-16 5807657548) BUN (test code = 11 mg/dL 7-23 4272135696) GLUCOSE (test code = 175 mg/dL 70-110 H 5306071474) CREATININE (test code = 0.62 mg/dL 0.60-1.25 4101548926) CALCIUM (test code = 9.0 mg/dL 8.6-10.6 2986679760) eGFR Calculation mL/min/1.73m2 (Non-) (test code = 7758733397) eGFR Calculation mL/min/1.73m2 () (test code = 3988578354) JAMES (test code = JAMES) Association of [...] tests). Lab Interpretation Abnormal (test code = 97566-2) [facility] WITH [id number] 11:07:27 Test Item Value Reference Range Interpretation [...] RDW-SD (test code = 45.2 fL 38.5-51.6 80839-4) RDW-CV (test code = 16.9 % 12.1-15.4 H 788-0) PLT (test code = See_Comment H [Automated 777-3) message] The sy stem which generated this result transmitted reference range : 150 - 328 10*3/ ?L. The reference r torito was not used to interpret this result as normal/abnormal . MPV (test code = 8.1 fL 9.8-13.0 L 39779-6) NRBC/100 WBC (test See_Comment [Automat ed code = 5601657258) message] The system which generated this result transmitted reference range : 0.0 - 10.0 /100 WBCs. The refer ence range was not u sed to interpret th is result as normal/abnormal . NRBC x10^3 (test code <0.01 See_Comment [Auto mated = 6716691599) message] The s [employer] which generated this result transmitted reference range : 10*3/?L. The reference range was not used to interpret this result as normal/abnormal . GRAN MAT (NEUT) % 72.8 % (test code = 770-8) IMM GRAN % (test code 0.60 % = 5147284091) LYMPH % (test code = 18.4 % 736-9) MONO % (test code = 5.7 % 5905-5) EOS % (test code = 1.8 % 713-8) BASO % (test code = 0.7 % 706-2) GRAN MAT x10^3(ANC) 8.23 10*3/uL 1.99-6.95 H (test code = 7978676796) IMM GRAN x10^3 (test 0.07 10*3/uL 0.00-0.06 H code = 1729637969) LYMPH x10^3 (test code 2.08 10*3/uL 1.09-3.23 = 731-0) MONO x10^3 (test code 0.65 10*3/uL 0.36-1.02 = 742-7) EOS x10^3 (test code = 0.20 10*3/uL 0.06-0.53 711-2) BASO x10^3 (test code 0.08 10*3/uL 0.01-0.09 = 704-7) Lab Interpretation Abnormal (test code = 63363-3) [facility]2020-12-17 06:03:38 Test Item Value Reference Range Interpretation Comments POCT GLU (test code = 3556702355) 75 mg/dL 70-110 Lab Interpretation (test code = Normal 24070-5) [facility] HospitalVIT[facility] B6, [id number] 00:01:00 Test Item Value Reference Range Interpretation Comments VIT B6 (test code = 13.1 nmol/L 20.0-125.0 L INTERPRE TIVE 45406-4) INFORMATION: Vi tamin B6 (Pyridoxal 5-Phosphate) Pyridoxal 5'-phosphate me asured in a specimen collected follo wing an 8-hour or overnight fast accurately clara cates vitamin B6 nutritional sta tus. Non-fasting spe cimen concentration reflects recent vitamin intake. This test was develo ped and its perform ance characteristics determined by [facility]. I t has not been cleare d or approved by the [place] Food and Drug Administration. This test was perfor med in a CLIA certifie d laboratory and is intended for cl inical purposes.Perfor med By: Vrvana[address] [place] [address] [id number] Director: Namrata Klein MD Lab Interpretation Abnormal (test code = 14218-5) [facility] TIBIA FIBULA 2 VW [id number] 23:57:09 Tricompartmental knee joint osteoarthrosis.XR TIBIA FIBULA [...] No acute fracture or dislocation.IMPRESSIONTricompartmental knee joint osteoarthrosis.[facility] GLUCOSE (AUTOMATED) 2020-12-16 23:27:00 Test Item Value Reference Range Interpretation Comments POCT GLU (test code = 7598812941) 114 mg/dL 70-110 H Lab Interpretation (test code = Abnormal 93358-5) [facility] GLUCOSE (AUTOMATED)2020-12-16 20:12:00 Test Item Value Reference Range Interpretation Comments POCT GLU (test code = 1517291958) 105 mg/dL 70-110 Lab Interpretation (test code = Normal 24611-4) [facility] GLUCOSE (AUTOMATED)2020-12-16 14:44:00 Test Item Value Reference Range Interpretation Comments POCT GLU (test code = 8024377813) 153 mg/dL 70-110 H Lab Interpretation (test code = Abnormal 99976-3) [facility] (NA, K, CL, CO2, GLUCOSE, BUN, CREATININE, CA)2020-12-16 14:23:00 Test Item Value Reference Range Interpretation Comments NA (test code = 138 mmol/L 135-145 7060340990) K (test code = 3.4 mmol/L 3.5-5.0 L 3477978437) CL (test code = 100 mmol/L 98-108 7788631730) CO2 TOTAL (test code = 31 mmol/L 23-31 2028918016) AGAP (test code = 2-16 3110141520) BUN (test code = 11 mg/dL 7-23 4430176453) GLUCOSE (test code = 162 mg/dL 70-110 H 3900604588) CREATININE (test code = 0.64 mg/dL 0.60-1.25 3824766219) CALCIUM (test code = 8.9 mg/dL 8.6-10.6 7248683234) eGFR Calculation mL/min/1.73m2 (Non-) (test code = 7163900871) eGFR Calculation mL/min/1.73m2 () (test code = 5030569749) JAMES (test code = JAMES) Association of [...] tests). Lab Interpretation Abnormal (test code = 28367-6) [facility] WITH [id number] 14:05:00 Test Item Value Reference Range Interpretation [...] RDW-SD (test code = 45.4 fL 38.5-51.6 64149-4) RDW-CV (test code = 17.0 % 12.1-15.4 H 788-0) PLT (test code = See_Comment H [Automated 777-3) message] The sy stem which generated this result transmitted reference range : 150 - 328 10*3/ ?L. The reference r torito was not used to interpret this result as normal/abnormal . MPV (test code = 8.0 fL 9.8-13.0 L 14603-8) NRBC/100 WBC (test See_Comment [Automat ed code = 5556407299) message] The system which generated this result transmitted reference range : 0.0 - 10.0 /100 WBCs. The refer ence range was not u sed to interpret th is result as normal/abnormal . NRBC x10^3 (test code <0.01 See_Comment [Auto mated = 2682194689) message] The s ystem which generated this result transmitted reference range : 10*3/?L. The reference range was not used to interpret this result as normal/abnormal . GRAN MAT (NEUT) % 70.0 % (test code = 770-8) IMM GRAN % (test code 0.70 % = 4898037064) LYMPH % (test code = 20.5 % 736-9) MONO % (test code = 7.1 % 5905-5) EOS % (test code = 1.0 % 713-8) BASO % (test code = 0.7 % 706-2) GRAN MAT x10^3(ANC) 9.44 10*3/uL 1.99-6.95 H (test code = 5235158968) IMM GRAN x10^3 (test 0.09 10*3/uL 0.00-0.06 H code = 6999536896) LYMPH x10^3 (test code 2.76 10*3/uL 1.09-3.23 = 731-0) MONO x10^3 (test code 0.96 10*3/uL 0.36-1.02 = 742-7) EOS x10^3 (test code = 0.13 10*3/uL 0.06-0.53 711-2) BASO x10^3 (test code 0.10 10*3/uL 0.01-0.09 H = 704-7) Lab Interpretation Abnormal (test code = 31047-5) [facility] HospitalBlood Culture - Peripheral # [id number] 13:01:00 Test Item Value Reference Range Interpretation Comments Blood Culture-Aerobic No organisms No growth Previo us (test code = 32826-7) isolated prelim inary verified result was Culture In Progress on 12/11/2020 at 100 1 CSTPrevious preliminary verified result was No growth a t 24 hours on 12/12/2020 at 070 1 CSTPrevious preliminary verified result was No growth a t 48 hours on 12/13/2020 at 070 1 CSTPrevious preliminary verified result was No growth a t 72 hours on 12/14/2020 at 070 1 [employer] Blood No organisms No growth Previous Culture-Anaerobic isolated preliminar y (test code = 00694-5) verifi ed result was Culture In Progress on 12/11/2020 at 100 1 CSTPrevious preliminary verified result was No growth a t 24 hours on 12/12/2020 at 070 1 CSTPrevious preliminary verified result was No growth a t 48 hours on 12/13/2020 at 070 1 CSTPrevious preliminary verified result was No growth a t 72 hours on 12/14/2020 at 070 1 [employer] Lab Interpretation Normal (test code = 44191-7) [facility] Culture - Peripheral # [id number] 13:01:00 Test Item Value Reference Range Interpretation Comments Blood Culture-Aerobic No organisms No growth Previo us (test code = 90653-3) isolated prelim inary verified result was Culture In Progress on 12/11/2020 at 100 1 CSTPrevious preliminary verified result was No growth a t 24 hours on 12/12/2020 at 070 1 CSTPrevious preliminary verified result was No growth a t 48 hours on 12/13/2020 at 070 1 CSTPrevious preliminary verified result was No growth a t 72 hours on 12/14/2020 at 070 1 [employer] Blood No organisms No growth Previous Culture-Anaerobic isolated preliminar y (test code = 65588-4) verifi ed result was Culture In Progress on 12/11/2020 at 100 1 CSTPrevious preliminary verified result was No growth a t 24 hours on 12/12/2020 at 070 1 CSTPrevious preliminary verified result was No growth a t 48 hours on 12/13/2020 at 070 1 CSTPrevious preliminary verified result was No growth a t 72 hours on 12/14/2020 at 070 1 [employer] Lab Interpretation Normal (test code = 54374-8) [facility] GLUCOSE (AUTOMATED)2020-12-16 04:01:00 Test Item Value Reference Range Interpretation Comments POCT GLU (test code = 7418956810) 156 mg/dL 70-110 H Lab Interpretation (test code = Abnormal 16692-4) [facility] GLUCOSE (AUTOMATED)2020-12-16 00:24:00 Test Item Value Reference Range Interpretation Comments POCT GLU (test code = 4859208184) 115 mg/dL 70-110 H Lab Interpretation (test code = Abnormal 55072-0) [facility] CHEST PULMONARY [id number] 23:34:55No pulmonary emboli. No interval change in [...] of intra and extrahepatic biliary du ctal dilatation.[facility] GLUCOSE (AUTOMATED) 2020-12-15 19:28:00 Test Item Value Reference Range Interpretation Comments POCT GLU (test code = 9965510344) 140 mg/dL 70-110 H Lab Interpretation (test code = Abnormal 68136-7) [facility]2021-03-05 15:26:00 Test Item Value Reference Range Interpretation Comments MAGNESIUM (test code = 8979593307) 2.2 mg/dL 1.7-2.4 Lab Interpretation (test code = Normal 45432-2) [facility] (AUTOMATED)2020-12-15 15:15:00 Test Item Value Reference Range Interpretation Comments POCT GLU (test code = 9879542076) 181 mg/dL 70-110 H Lab Interpretation (test code = Abnormal 87624-2) [facility] (NA, K, CL, CO2, GLUCOSE, BUN, CREATININE, CA)2020-12-15 13:07:00 Test Item Value Reference Range Interpretation Comments NA (test code = 136 mmol/L 135-145 3706146265) K (test code = 3.6 mmol/L 3.5-5.0 5172060443) CL (test code = 96 mmol/L 98-108 L 8963308803) CO2 TOTAL (test code = 29 mmol/L 23-31 0266125870) AGAP (test code = 2-16 4160941287) BUN (test code = 12 mg/dL 7-23 9886869534) GLUCOSE (test code = 183 mg/dL 70-110 H 5928929237) CREATININE (test code = 0.70 mg/dL 0.60-1.25 1366611674) CALCIUM (test code = 9.2 mg/dL 8.6-10.6 6573161172) eGFR Calculation mL/min/1.73m2 (Non-) (test code = 3842990650) eGFR Calculation mL/min/1.73m2 () (test code = 5728159446) JAMES (test code = JAMES) Association of [...] tests). Lab Interpretation Abnormal (test code = 38420-8) [facility] WITH [id number] 12:32:00 Test Item Value Reference Range Interpretation Comments WBC (test code = See_Comment H [Automated 0390-2) message] The system which generated this result transmit ronan reference range : 4.20 - 10.70 10*3/?L. The reference range was not used to interpret this result as normal/abnormal . RBC (test code = See_Comment H [Automated 569-8) message] The system which generated this result [...] RDW-SD (test code = 44.4 fL 38.5-51.6 20671-1) RDW-CV (test code = 17.7 % 12.1-15.4 H 788-0) PLT (test code = See_Comment H [Automated 777-3) message] The system which generated this result transmit ronan reference range : 150 - 328 10*3/ ?L. The reference range was not u sed to interpret th is result as normal/abnormal . MPV (test code = 8.1 fL 9.8-13.0 L 22813-2) NRBC/100 WBC (test See_Comment [Automat ed code = 8979161468) message] The system which generated this result transmit ronan reference range : 0.0 - 10.0 /100 WBCs. The reference range was not used to interpret this result as normal/abnormal . NRBC x10^3 (test code <0.01 See_Comment [Auto mated = 5831618865) message] The system which generated this result transmit ronan reference range : 10*3/?L. The reference range was not used to interpret this result as normal/abnormal . GRAN MAT (NEUT) % 74.5 % (test code = 770-8) IMM GRAN % (test code 0.70 % = 2191986513) LYMPH % (test code = 17.4 % 736-9) MONO % (test code = 6.8 % 5905-5) EOS % (test code = 0.2 % 713-8) BASO % (test code = 0.4 % 706-2) GRAN MAT x10^3(ANC) 11.99 10*3/uL 1.99-6.95 H (test code = 4098716323) IMM GRAN x10^3 (test 0.11 10*3/uL 0.00-0.06 H code = 3470566823) LYMPH x10^3 (test code 2.80 10*3/uL 1.09-3.23 = 731-0) MONO x10^3 (test code 1.10 10*3/uL 0.36-1.02 H = 742-7) EOS x10^3 (test code = 0.03 10*3/uL 0.06-0.53 L 711-2) BASO x10^3 (test code 0.06 10*3/uL 0.01-0.09 = 704-7) Lab Interpretation Abnormal (test code = 35161-7) [facility] GLUCOSE (AUTOMATED)2020-12-15 04:16:00 Test Item Value Reference Range Interpretation Comments POCT GLU (test code = 5162424077) 200 mg/dL 70-110 H Lab Interpretation (test code = Abnormal 78964-3) [facility]IT[facility] B1 (THIAMINE), WHOLE [id number] 00:30:00 Test Item Value Reference Range Interpretation Comments Vitamin B1, Whole 136 nmol/L 70-180 INTERPRETI VE INFORMATION: Blood (test code = Vitamin B 1, Whole Blood 46098-0) This assay júnior ures the concentration o f thiamine diphosphate (TD P), the primary active form of vitamin B1. Nick roximately 90 percent of v itamin B1 present in whol e blood is TDP. Thiamine a nd thiamine monoph osphate, which comprise the remaining 10 pe rcent, are not measured. T his test was developed a nd its performance characteristics determined by [facility]. I t has not been cleared or approved by the [place] Food and Drug Administration. This test was performed i n a CLIA certified labor atory and is intended for clinical purposes.Perfor med By: DEE Perdomoi es[address] [place] [address] [id number] aboratory Director: Namrata Klein MD [facility] GLUCOSE (AUTOMATED)2020-12-14 23:35:00 Test Item Value Reference Range Interpretation Comments POCT GLU (test code = 9350649439) 151 mg/dL 70-110 H Lab Interpretation (test code = Abnormal 83785-9) [facility] GLUCOSE (AUTOMATED)2020-12-14 19:19:00 Test Item Value Reference Range Interpretation Comments POCT GLU (test code = 1933575587) 193 mg/dL 70-110 H Lab Interpretation (test code = Abnormal 36019-4) [facility] GLUCOSE (AUTOMATED)2020-12-14 15:22:00 Test Item Value Reference Range Interpretation Comments POCT GLU (test code = 0218206883) 221 mg/dL 70-110 H Lab Interpretation (test code = Abnormal 72337-3) [facility] GLUCOSE (AUTOMATED)2020-12-14 02:37:00 Test Item Value Reference Range Interpretation Comments POCT GLU (test code = 0101977581) 210 mg/dL 70-110 H Lab Interpretation (test code = Abnormal 67609-7) [facility] GLUCOSE (AUTOMATED)2020-12-13 23:33:00 Test Item Value Reference Range Interpretation Comments POCT GLU (test code = 3753698843) 182 mg/dL 70-110 H Lab Interpretation (test code = Abnormal 78460-6) [facility] GLUCOSE (AUTOMATED)2020-12-13 18:09:00 Test Item Value Reference Range Interpretation Comments POCT GLU (test code = 7883583684) 150 mg/dL 70-110 H Lab Interpretation (test code = Abnormal 69932-2) [facility] METABOLIC PANEL (NA, K, CL, CO2, GLUCOSE, BUN, CREATININE, CA)2020-12-13 16:27:00 Test Item Value Reference Range Interpretation Comments NA (test code = 136 mmol/L 135-145 1939985360) K (test code = 3.7 mmol/L 3.5-5.0 7548654371) CL (test code = 96 mmol/L 98-108 L 6419994920) CO2 TOTAL (test code = 29 mmol/L 23-31 9088484210) AGAP (test code = 2-16 8745733781) BUN (test code = 6 mg/dL 7-23 L 0452779648) GLUCOSE (test code = 212 mg/dL 70-110 H 4253682894) CREATININE (test code = 0.61 mg/dL 0.60-1.25 1145334799) CALCIUM (test code = 9.5 mg/dL 8.6-10.6 2442300306) eGFR Calculation mL/min/1.73m2 (Non-) (test code = 1276675259) eGFR Calculation mL/min/1.73m2 () (test code = 6861297279) JAMES (test code = JAMES) Association of [...] tests). Lab Interpretation Abnormal (test code = 11695-7) [facility] WITH [id number] 16:10:00 Test Item Value Reference Range Interpretation Comments WBC (test code = See_Comment H [Automated 9249-2) message] The sy stem which generated this result transmitted reference range : 4.20 - 10.70 10*3/?L. The reference range was not used to interpret this result as normal/abnormal . RBC (test code = See_Comment H [Automated 609-8) message] The sy stem which generated this [...] RDW-SD (test code = 43.3 fL 38.5-51.6 19315-9) RDW-CV (test code = 16.2 % 12.1-15.4 H 788-0) PLT (test code = See_Comment H [Automated 777-3) message] The sy stem which generated this result transmitted reference range : 150 - 328 10*3/ ?L. The reference r torito was not used to interpret this result as normal/abnormal . MPV (test code = 8.2 fL 9.8-13.0 L 06496-3) NRBC/100 WBC (test See_Comment [Automat ed code = 3532366337) message] The system which generated this result transmitted reference range : 0.0 - 10.0 /100 WBCs. The refer ence range was not u sed to interpret th is result as normal/abnormal . NRBC x10^3 (test code <0.01 See_Comment [Auto mated = 6843828678) message] The s ystem which generated this result transmitted reference range : 10*3/?L. The reference range was not used to interpret this result as normal/abnormal . GRAN MAT (NEUT) % 86.2 % (test code = 770-8) IMM GRAN % (test code 0.70 % = 2859520654) LYMPH % (test code = 10.2 % 736-9) MONO % (test code = 2.5 % 5905-5) EOS % (test code = 0.1 % 713-8) BASO % (test code = 0.3 % 706-2) GRAN MAT x10^3(ANC) 9.61 10*3/uL 1.99-6.95 H (test code = 7098588966) IMM GRAN x10^3 (test 0.08 10*3/uL 0.00-0.06 H code = 8840450899) LYMPH x10^3 (test code 1.14 10*3/uL 1.09-3.23 = 731-0) MONO x10^3 (test code 0.28 10*3/uL 0.36-1.02 L = 742-7) EOS x10^3 (test code = <0.03 0.06-0.53 L 711-2) BASO x10^3 (test code 0.03 10*3/uL 0.01-0.09 = 704-7) Lab Interpretation Abnormal (test code = 52408-0) [facility]2020-12-13 14:16:00 Test Item Value Reference Range Interpretation Comments POCT GLU (test code = 4097963952) 236 mg/dL 70-110 H Lab Interpretation (test code = Abnormal 00452-7) [facility] COVID [id number] 04:58:00COVID DMT InterpretationInterpretation/Recommendations: Molecular NAAT Tests for [...] COVID-19 testing the patient has had at [facility], including molecular NAAT testing (more commonly known as PCR testing and Rapid ID Now testing) and antibody testing. It does not take into account any testing that a patient has had outside of the [facility] medical record. [facility] LABORATORY SERVICESCOVID Resu ghbJWJS-EyS-7 Rapid ID NOW (no units) ? ? Date ? Value ? 12/11/2020 ? Not Detected ? ? ? 11/16/2020 ? Not Detected ? ? ? 08/21/2020 ?Not Detected ? [facility] 2020-12-13 03:11:00 Test Item Value Reference Range Interpretation Comments POCT GLU (test code = 1600597964) 171 mg/dL 70-110 H Lab Interpretation (test code = Abnormal 95626-1) [facility] GLUCOSE (AUTOMATED)2020-12-13 00:00:00 Test Item Value Reference Range Interpretation Comments POCT GLU (test code = 4515550521) 118 mg/dL 70-110 H Lab Interpretation (test code = Abnormal 77068-9) [facility] GLUCOSE (AUTOMATED)2020-12-12 20:29:00 Test Item Value Reference Range Interpretation Comments POCT GLU (test code = 1141627441) 173 mg/dL 70-110 H Lab Interpretation (test code = Abnormal 33571-7) [facility] ABDOMEN [id number] 19:56:17 1. ?Hepatic steatosis. However, limited evaluation [...] main portal veinwasevaluated with color Doppler imaging. [employer] images were obtainedfor the record. COMPARISON: Ultrasound [...] normal where visualized. SPLEEN:No images were obtained. [facility], Radiant Results Inft User - 12/12/2020 1:57 PM CSTEXAM: US ABDOMEN LIMITEDHISTORY: 70 years-old male with RUQ ultrasound to assess for common bileduct dilation .TECHNIQUE: Limited abdominal ultrasound focused on the liver, biliarysystem, pancreas, and spleen was performed. The main portal vein wasevaluated with color Doppler imaging. [employer] images were obtainedfor the record.COMPARISON: Ultrasound abdomen [...] this study and agree with the abovereport. [facility]2020-12-12 19:24:00 Test Item Value Reference Range Interpretation Comments POCT GLU (test code = 2162804177) 230 mg/dL 70-110 H Lab Interpretation (test code = Abnormal 84813-7) [facility] CHEST 1 [id number] 15:16:46 Low lung volumes with mild perihilar [...] have reviewed thisstudy and agree with theabove report.[facility]2020-12-12 14:34:00 Test Item Value Reference Range Interpretation Comments POCT GLU (test code = 5249236859) 225 mg/dL 70-110 H Lab Interpretation (test code = Abnormal 82025-7) [facility] [id number] 13:28:00 Test Item Value Reference Range Interpretation Comments URINE CULTURE (test < 10,000 CFU/mL mixed code = 630-4) aerobic organisms - suggests endogenous microbial contamination [facility] (NA, K, CL, CO2, GLUCOSE, BUN, CREATININE, CA)2020-12-12 10:05:00 Test Item Value Reference Range Interpretation Comments NA (test code = 136 mmol/L 135-145 6875339151) K (test code = 3.5 mmol/L 3.5-5.0 4266888876) CL (test code = 100 mmol/L 98-108 1706195391) CO2 TOTAL (test code = 31 mmol/L 23-31 6841717666) AGAP (test code = 2-16 9993432523) BUN (test code = 7 mg/dL 7-23 7238727293) GLUCOSE (test code = 259 mg/dL 70-110 H 0588728285) CREATININE (test code = 0.63 mg/dL 0.60-1.25 2113840700) CALCIUM (test code = 8.5 mg/dL 8.6-10.6 L 8008279151) eGFR Calculation mL/min/1.73m2 (Non-) (test code = 3827267955) eGFR Calculation mL/min/1.73m2 () (test code = 2578681584) JAMES (test code = JAMES) Association of [...] tests). Lab Interpretation Abnormal (test code = 19576-1) [facility] [id number] 10:05:00 Test Item Value Reference Range Interpretation Comments MAGNESIUM (test code = 1001532961) 1.9 mg/dL 1.7-2.4 Lab Interpretation (test code = Normal 09390-8) [facility] with Yjbwahfmlokd5473-96-25 09:48:00 Test Item Value Reference Range Interpretation Comments WBC (test code = See_Comment [Automated 9990-2) message] The sy stem which generated this result transmitted reference range : 4.20 - 10.70 10*3/?L. The reference range was not used to interpret this result as normal/abnormal . RBC (test code = See_Comment [Automated 215-8) message] The sy stem which generated this [...] RDW-SD (test code = 46.0 fL 38.5-51.6 39901-9) RDW-CV (test code = 16.1 % 12.1-15.4 H 788-0) PLT (test code = See_Comment H [Automated 777-3) message] The sy stem which generated this result transmitted reference range : 150 - 328 10*3/ ?L. The reference r torito was not used to interpret this result as normal/abnormal . MPV (test code = 8.6 fL 9.8-13.0 L 20811-3) NRBC/100 WBC (test See_Comment [Automat ed code = 5776164728) message] The system which generated this result transmitted reference range : 0.0 - 10.0 /100 WBCs. The refer ence range was not u sed to interpret th is result as normal/abnormal . NRBC x10^3 (test code <0.01 See_Comment [Auto mated = 6761351357) message] The s ystem which generated this result transmitted reference range : 10*3/?L. The reference range was not used to interpret this result as normal/abnormal . GRAN MAT (NEUT) % 70.2 % (test code = 770-8) IMM GRAN % (test code 0.30 % = 0778601007) LYMPH % (test code = 18.8 % 736-9) MONO % (test code = 5.0 % 5905-5) EOS % (test code = 5.2 % 713-8) BASO % (test code = 0.5 % 706-2) GRAN MAT x10^3(ANC) 6.05 10*3/uL 1.99-6.95 (test code = 5933072991) IMM GRAN x10^3 (test 0.03 10*3/uL 0.00-0.06 code = 0362766301) LYMPH x10^3 (test code 1.62 10*3/uL 1.09-3.23 = 731-0) MONO x10^3 (test code 0.43 10*3/uL 0.36-1.02 = 742-7) EOS x10^3 (test code = 0.45 10*3/uL 0.06-0.53 711-2) BASO x10^3 (test code 0.04 10*3/uL 0.01-0.09 = 704-7) Lab Interpretation Abnormal (test code = 62316-1) [facility] GLUCOSE (AUTOMATED)2020-12-12 03:42:00 Test Item Value Reference Range Interpretation Comments POCT GLU (test code = 196 mg/dL 70-110 H Notifi ed Provider [id number]) Lab Interpretation (test Abnormal code = 02865-5) [facility]2021-[facility] 02:24:00 Test Item Value Reference Range Interpretation Comments FOLATE SER (test code = 4875420925) 5.8 ng/mL 3.0-20.0 Lab Interpretation (test code = Normal 54366-6) [facility] HospitalVITAMIN B12, [id number] 00:55:00 Test Item Value Reference Range Interpretation Comments VIT B12 (test code = 844 pg/mL 240-930 2343492715) JAMES (test code = JAMES) Biotin has been reported to cause a positive bias, interpret results relative to patient's use of biotin. Lab Interpretation (test Normal code = 08921-0) [facility] GLUCOSE (AUTOMATED)2020-12-12 00:14:00 Test Item Value Reference Range Interpretation Comments POCT GLU (test code = 7561306316) 164 mg/dL 70-110 H Lab Interpretation (test code = Abnormal 18191-2) [facility] HospitalCREATINE [id number] 23:42:00 Test Item Value Reference Range Interpretation Comments CK (test code = 0417033982) <20 33-194 L Lab Interpretation (test code = Abnormal 19626-7) [facility] HospitalTHYROID STIMULATING [id number] 23:17:00 Test Item Value Reference Range Interpretation Comments TSH (test code = See_Comment Biotin has been 1759525703) reported to cau se a negative bias, interpret resul ts relative to pat ient's use of biotin. [Automated mess age] The system [employer] generated this result transmitted ref erence range: 0.45 - 4 .70 mIU/L. The refe rence range was not u sed to interpret this result as normal/abnor mal. Lab Interpretation (test Normal code = 89298-0) [facility] HospitalXR HIPS 3 VW [id number] 21:41:53No appreciable fracture lines. RL: 6200 ICAL [...] osseous erosions.IMPRESSIONNo appreciable fracture lines.RL: 6200 [facility] ChildrenPROCALCITONIN2021-03-01 20:00:00 Test Item Value Reference Range Interpretation Comments Procalcitonin (test 0.13 ng/mL <0.07 H code = 4128244837) JAMES (test code = JAMES) INTERPRETATION OF [...] lung abscess/empyema. For further information please refer to:[email or web address] Lab Interpretation Abnormal (test code = 06212-9) [facility]PO[facility]SE (AUTOMATED)2020-12-11 19:07:00 Test Item Value Reference Range Interpretation Comments POCT GLU (test code = 1667023813) 274 mg/dL 70-110 H Lab Interpretation (test code = Abnormal 22802-4) [facility] HospitalMAGNESIUM2021-03-01 18:31:00 Test Item Value Reference Range Interpretation Comments MAGNESIUM (test code = 3216148400) 1.9 mg/dL 1.7-2.4 Lab Interpretation (test code = Normal 38397-5) [facility] HospitalFERRITIN [id number] 18:31:00 Test Item Value Reference Range Interpretation Comments FERRITIN (test code = 178.0 ng/mL 18.0-464.0 6328233045) JAMSE (test code = JAMES) Biotin has been reported to cause a negative bias, interpret results relative to patient's use of biotin. Lab Interpretation (test Normal code = 06481-4) [facility] HospitalCT HEAD WO [id number] 14:36:47 No acute intracranial abnormality. Dilated ventricles out of proportion to the caliber of sulci with diffuseproportional enlargement of the subarachnoid spaces, nonspecific findingmay represent central predominant volume loss, however, normal pressurehydrocephalus can potentially have similar appearance in the appropriateclinical setting. Preliminary Report Dictated by Resident: Roxane Wilson I, Katelyn Matrin MD., have reviewed this study and agree [...] reviewed this study and agree with the abovereport.[facility] HospitalURINALYSIS2021-03-01 14:28:00 Test Item Value Reference Range Interpretation Comments APPEARANCE (test code = Clear Clear 7246704339) COLOR (test code = Yellow Yellow 3666864516) PH (test code = 4.8-8.0 3363623331) SP GRAVITY (test code = 1.003-1.030 7696167077) GLU U QUAL (test code = 500 mg/dL Normal A 7001650836) BLOOD (test code = Negative Negative 2125052472) KETONES (test code = 5 mg/dL Negative A 2820763179) PROTEIN (test code = Negative Negative 2887-8) UROBILIN (test code = Normal Normal 9587051122) BILIRUBIN (test code = Negative Negative 6953689693) NITRITE (test code = Negative Negative 4832410027) LEUK RYAN (test code = Negative Negative 7514444737) RBC/HPF (test code = See_Comment [Autom ated message] 8712869718) The system [employer] generated this result transmit ronan reference range : 0 - 3 HPF. The refe rence range was not u sed to interpret th is result as normal/abnormal . WBC/HPF (test code = See_Comment [Autom ated message] 5569760411) The system [employer] generated this result transmit ronan reference range : 0 - 5 HPF. The refe rence range was not u sed to interpret th is result as normal/abnormal . BACTERIA (test code = Negative Negative 3868459456) MUCOUS (test code = Slight Negative LPF A 3725340894) SQ EPITH (test code = HPF 8810416055) Lab Interpretation (test Abnormal code = 57916-1) [facility] HospitalCOVID-[facility] (ID NOW RAPID TESTING)2020-12-11 13:10:00 Test Item Value Reference Range Interpretation Comments SARS-CoV-2 Rapid ID NOW Not Detected Not Detected (test code = 42439-1) JAMES (test code = JAMES) ID NOW COVID-19 Assay is an isothermal nucleic acid amplification test intended for the qualitative detection of nucleic acid from SARS-CoV-2 viral RNA in nasopharyngeal (SAP BI ARCHITECT) specimens. It is used under Emergency Use [...] indicated. Lab Interpretation Normal (test code = 63196-5) [facility]. METABOLIC PANEL (03085)2020-12-11 12:29:00 Test Item Value Reference Range Interpretation Comments NA (test code = 136 mmol/L 135-145 6412484839) K (test code = 3.5 mmol/L 3.5-5.0 3130124237) CL (test code = 95 mmol/L 98-108 L 9900260969) CO2 TOTAL (test code = 35 mmol/L 23-31 H 6875915061) AGAP (test code = 2-16 9186629178) BUN (test code = 9 mg/dL 7-23 9467079407) GLUCOSE (test code = 329 mg/dL 70-110 H 7300476325) CREATININE (test code = 0.72 mg/dL 0.60-1.25 7249619137) TOTAL BILI (test code = 0.6 mg/dL 0.1-1.8 9274531880) CALCIUM (test code = 9.0 mg/dL 8.6-10.6 7894495091) T PROTEIN (test code = 6.8 g/dL 6.3-8.2 0579288534) ALBUMIN (test code = 3.8 g/dL 3.5-5.0 4494399889) ALK PHOS (test code = 288 U/L 34-122 H 0706693972) ALTv (test code = 46 U/L 5-50 2-6) AST(SGOT) (test code = 38 U/L 13-40 4688798541) eGFR Calculation mL/min/1.73m2 (Non-) (test code = 5731185485) eGFR Calculation mL/min/1.73m2 () (test code = 7797577895) JAMES (test code = JAMES) Association of [...] tests). Lab Interpretation Abnormal (test code = 47217-8) [facility] HospitalLactic Acid Whole Mjdsm8119-04-29 12:23:00 Test Item Value Reference Range Interpretation Comments LACTIC ACID (test code = 2.09 mmol/L 0.50-2.20 3125575800) Lab Interpretation (test code = Normal 88846-8) [facility] HospitalCB WITH [id number] 12:17:00 Test Item Value Reference Range Interpretation Comments WBC (test code = See_Comment H [Automated 5590-2) message] The sy stem which generated this [...] RDW-SD (test code = 44.9 fL 38.5-51.6 51210-7) RDW-CV (test code = 15.9 % 12.1-15.4 H 788-0) PLT (test code = See_Comment H [Automated 777-3) message] The sy stem which generated this result transmitted reference range : 150 - 328 10*3/ ?L. The reference r torito was not used to interpret this result as normal/abnormal . MPV (test code = 8.3 fL 9.8-13.0 L 25556-9) NRBC/100 WBC (test See_Comment [Automat ed code = 1297358435) message] The system which generated this result transmitted reference range : 0.0 - 10.0 /100 WBCs. The refer ence range was not u sed to interpret th is result as normal/abnormal . NRBC x10^3 (test code <0.01 See_Comment [Auto mated = 8547034732) message] The s ystem which generated this result transmitted reference range : 10*3/?L. The reference range was not used to interpret this result as normal/abnormal . GRAN MAT (NEUT) % 77.9 % (test code = 770-8) IMM GRAN % (test code 0.50 % = 4798974861) LYMPH % (test code = 12.2 % 736-9) MONO % (test code = 5.2 % 5905-5) EOS % (test code = 3.7 % 713-8) BASO % (test code = 0.5 % 706-2) GRAN MAT x10^3(ANC) 9.57 10*3/uL 1.99-6.95 H (test code = 8611962132) IMM GRAN x10^3 (test 0.06 10*3/uL 0.00-0.06 code = 5466018541) LYMPH x10^3 (test code 1.50 10*3/uL 1.09-3.23 = 731-0) MONO x10^3 (test code 0.64 10*3/uL 0.36-1.02 = 742-7) EOS x10^3 (test code = 0.46 10*3/uL 0.06-0.53 711-2) BASO x10^3 (test code 0.06 10*3/uL 0.01-0.09 = 704-7) Lab Interpretation Abnormal (test code = 38071-6) [facility]LAB ONLY COVID [id number] 18:43:00COVID DMT InterpretationInterpretation/Recommendations: Molecular NAAT Test Results [...] a nasopharyngeal sample, there is approximately a bny-hg-zoktd chance that the patient was infected and [...] based upon aggregate data pooled from the [facility] medical record including both current and prior COVID-19 related testing results for the following tests offered at our institution:A. Tests for the Identification of SARS-CoV-2 RNA:SARS-CoV-2 PCR assays including Dale Aptima, Dale Fusion, Barrett RealTime, and [employer]eenworld Xpert Xpress. SARS-CoV-2 Rapid ID NOW by the ID NOW assay. ? B. Tests for the Identification of SARS-CoV-2 Antibodies: Chemiluminescent immunoassays including Access SARS-CoV-2 IgM (DXI 600), LawbitDocsS Grpt-LDKX-OuL-2 IgG (Vitros 5600 and Vitros 3600), and Barrett SARS-CoV-2 IgG (SOAKERS SUPERVISOR I System). These interpretation comments assume that only the above testing was utilized and that the approved acceptable specimen type(s) were used for a given test. These interpretations are autopopulated into [employer]! based on computerized algorithms matching an interpretation code number to the patient's set of test results. While a clinical pathologist evaluates the combinations for clinical accuracy, clinical correlation is recommended as it may not take into account very remote prior testing. Furthermore, it does not consider testing a patient may have had outside of the [facility] system. Additionally, it should be noted that the computerized algorithm treats the results for PCR testing and Rapid ID NOW testing (also PCR) synonymously, and thus, refers to both testing methodologies as PCR tests. Given that the sensitivity of [facility]'s Rapid ID NOW testingplatform is analogous [...] panel may be beneficial in this setting. [facility] LABORATORY SERVICESCOVID KlpkyziNXMH-SqC-4 Rapid ID NOW (no units) ? ? Date ? Value ? 08/21/2020 ? Not Detected ? [facility]Un[facility]2020-08-23 18:25:00 Test Item Value Reference Range Interpretation Comments POCT GLU (test code = 2299203713) 297 mg/dL 70-110 H Lab Interpretation (test code = Abnormal 50868-0) [facility] GLUCOSE (AUTOMATED)2020-08-23 14:25:00 Test Item Value Reference Range Interpretation Comments POCT GLU (test code = 8197727629) 181 mg/dL 70-110 H Lab Interpretation (test code = Abnormal 75077-0) [facility] HospitalBasi Metabolic Panel (NA, K, CL, CO2, GLUCOSE, BUN, CREATININE, CA)2020-08-23 11:45:00 Test Item Value Reference Range Interpretation Comments NA (test code = 132 mmol/L 135-145 L 9841321279) K (test code = 4.0 mmol/L 3.5-5 5895157965) CL (test code = 96 mmol/L 98-108 L 3809818242) CO2 TOTAL (test code = 33 mmol/L 23-31 H 8675575186) AGAP (test code = 2-16 2764603469) BUN (test code = 9 mg/dL 7-23 0410930986) GLUCOSE (test code = 176 mg/dL 70-110 H 0400488329) CREATININE (test code = 0.66 mg/dL 0.6-1.25 4196131390) CALCIUM (test code = 8.5 mg/dL 8.6-10.6 L 8779450116) eGFR Calculation mL/min/1.73m2 (Non-) (test code = 5847649484) eGFR Calculation mL/min/1.73m2 () (test code = 4557469201) JAMES (test code = JAMES) Association of [...] tests). Lab Interpretation Abnormal (test code = 76845-0) [facility] HospitalMagnesium Ancwk5963-66-26 11:45:00 Test Item Value Reference Range Interpretation Comments MAGNESIUM (test code = 1647431044) 2.0 mg/dL 1.7-2.4 Lab Interpretation (test code = Normal 93064-1) [facility] with Csgkkqkfhlkb8970-65-44 11:38:00 Test Item Value Reference Range Interpretation [...] RDW-SD (test code = 41.8 fL 38.5-51.6 28788-1) RDW-CV (test code = 14.3 % 12.1-15.4 788-0) PLT (test code = See_Comment H [Automated 777-3) message] The sy stem which generated this result transmitted reference range : 150 - 328 10*3/ ?L. The reference r torito was not used to interpret this result as normal/abnormal . MPV (test code = 8.0 fL 9.8-13 L 02041-1) NRBC/100 WBC (test See_Comment [Automat ed code = 2421929512) message] The system which generated this result transmitted reference range : 0.0 - 10.0 /100 WBCs. The refer ence range was not u sed to interpret th is result as normal/abnormal . NRBC x10^3 (test code <0.01 See_Comment [Auto mated = 9741161294) message] The s ystem which generated this result transmitted reference range : 10*3/?L. The reference range was not used to interpret this result as normal/abnormal . GRAN MAT (NEUT) % 61.5 % (test code = 770-8) IMM GRAN % (test code 2.00 % = 1748405547) LYMPH % (test code = 25.5 % 736-9) MONO % (test code = 6.3 % 5905-5) EOS % (test code = 3.7 % 713-8) BASO % (test code = 1.0 % 706-2) GRAN MAT x10^3(ANC) 5.29 10*3/uL 1.99-6.95 (test code = 6443893665) IMM GRAN x10^3 (test 0.17 10*3/uL 0-0.06 H code = 3639229390) LYMPH x10^3 (test code 2.19 10*3/uL 1.09-3.23 = 731-0) MONO x10^3 (test code 0.54 10*3/uL 0.36-1.02 = 742-7) EOS x10^3 (test code = 0.32 10*3/uL 0.06-0.53 711-2) BASO x10^3 (test code 0.09 10*3/uL 0.01-0.09 = 704-7) Lab Interpretation Abnormal (test code = 34305-5) [facility] GLUCOSE (AUTOMATED)2020-08-23 10:22:00 Test Item Value Reference Range Interpretation Comments POCT GLU (test code = 3682547370) 164 mg/dL 70-110 H Lab Interpretation (test code = Abnormal 21927-3) [facility] GLUCOSE (AUTOMATED)2020-08-23 05:56:00 Test Item Value Reference Range Interpretation Comments POCT GLU (test code = 8220422985) 242 mg/dL 70-110 H Lab Interpretation (test code = Abnormal 37218-4) [facility] GLUCOSE (AUTOMATED)2020-08-23 03:02:00 Test Item Value Reference Range Interpretation Comments POCT GLU (test code = 6768733039) 210 mg/dL 70-110 H Lab Interpretation (test code = Abnormal 92860-3) [facility] GLUCOSE (AUTOMATED)2020-08-22 23:40:00 Test Item Value Reference Range Interpretation Comments POCT GLU (test code = 4534188887) 267 mg/dL 70-110 H Lab Interpretation (test code = Abnormal 30757-3) [facility] GLUCOSE (AUTOMATED)2020-08-22 19:08:00 Test Item Value Reference Range Interpretation Comments POCT GLU (test code = 1144063186) 191 mg/dL 70-110 H Lab Interpretation (test code = Abnormal 55735-9) [facility] GLUCOSE (AUTOMATED)2020-08-22 13:50:00 Test Item Value Reference Range Interpretation Comments POCT GLU (test code = 8251247002) 174 mg/dL 70-110 H Lab Interpretation (test code = Abnormal 43316-5) [facility] HospitalURINE [id number] 12:59:00 Test Item Value Reference Range Interpretation Comments URINE CULTURE (test No aerobic growth (< code = 630-4) 1000 CFU/mL) [facility] with Hhgnnfvcbvpn1141-36-87 11:28:00 Test Item Value Reference Range Interpretation [...] RDW-SD (test code = 42.5 fL 38.5-51.6 66618-0) RDW-CV (test code = 14.5 % 12.1-15.4 788-0) PLT (test code = See_Comment H [Automated 777-3) message] The sy stem which generated this result transmitted reference range : 150 - 328 10*3/ ?L. The reference r torito was not used to interpret this result as normal/abnormal . MPV (test code = 8.0 fL 9.8-13 L 99560-6) NRBC/100 WBC (test See_Comment [Automat ed code = 0416535027) message] The system which generated this result transmitted reference range : 0.0 - 10.0 /100 WBCs. The refer ence range was not u sed to interpret th is result as normal/abnormal . NRBC x10^3 (test code <0.01 See_Comment [Auto mated = 9625738110) message] The s ystem which generated this result transmitted reference range : 10*3/?L. The reference range was not used to interpret this result as normal/abnormal . GRAN MAT (NEUT) % 69.1 % (test code = 770-8) IMM GRAN % (test code 2.20 % = 3056118922) LYMPH % (test code = 20.9 % 736-9) MONO % (test code = 5.8 % 5905-5) EOS % (test code = 1.0 % 713-8) BASO % (test code = 1.0 % 706-2) GRAN MAT x10^3(ANC) 6.51 10*3/uL 1.99-6.95 (test code = 4209150832) IMM GRAN x10^3 (test 0.21 10*3/uL 0-0.06 H code = 6380034488) LYMPH x10^3 (test code 1.97 10*3/uL 1.09-3.23 = 731-0) MONO x10^3 (test code 0.55 10*3/uL 0.36-1.02 = 742-7) EOS x10^3 (test code = 0.09 10*3/uL 0.06-0.53 711-2) BASO x10^3 (test code 0.09 10*3/uL 0.01-0.09 = 704-7) BASO STIPPLING (test Present A code = 703-9) BANDS (test code = Increased A 1765155317) TOXIC CHANGES (test Present A code = 803-7) Lab Interpretation Abnormal (test code = 50707-5) [facility] Metabolic Panel (NA, K, CL, CO2, GLUCOSE, BUN, CREATININE, CA)2020-08-22 11:12:00 Test Item Value Reference Range Interpretation Comments NA (test code = 135 mmol/L 135-145 6456088284) K (test code = 3.6 mmol/L 3.5-5 8166084006) CL (test code = 99 mmol/L 98-108 8213571731) CO2 TOTAL (test code = 31 mmol/L 23-31 8723394459) AGAP (test code = 2-16 7665852794) BUN (test code = 9 mg/dL 7-23 0191081641) GLUCOSE (test code = 198 mg/dL 70-110 H 6542699256) CREATININE (test code = 0.72 mg/dL 0.6-1.25 5983662444) CALCIUM (test code = 8.3 mg/dL 8.6-10.6 L 5563755758) eGFR Calculation mL/min/1.73m2 (Non-) (test code = 7063918233) eGFR Calculation mL/min/1.73m2 () (test code = 7632990505) JAMES (test code = JAMES) Association of [...] tests). Lab Interpretation Abnormal (test code = 38890-2) [facility] HospitalMagn[facility] Zuxse1876-20-44 11:12:00 Test Item Value Reference Range Interpretation Comments MAGNESIUM (test code = 9530780208) 2.0 mg/dL 1.7-2.4 Lab Interpretation (test code = Normal 68863-8) [facility] HospitalLipid Panel (Total Cholesterol, Triglycerides, HDL) - Xfgxslq7847-00-18 11:12:00 Test Item Value Reference Range Interpretation Comments CHOL (test code = 155 mg/dL 120-200 7841060481) HDL (test code = 42 mg/dL >40 1129136811) HDLC RATIO (test code = See_Comment [Au tomated message] 4466138410) The system [employer] generated this result transmit ronan reference range : <=5.0. The refe rence range was not u sed to interpret th is result as normal/abnormal . TRIG (test code = 186 mg/dL 30-170 H 3639261078) LDL CHOL (test code = 76 mg/dL See_Comment [Auto mated message] 81660-9) The system [employer] generated this result transmit ronan reference range : <=160. The refe rence range was not u sed to interpret th is result as normal/abnormal . VLDL (test code = 37 mg/dL 5-60 9437401420) Lab Interpretation (test Abnormal code = 22773-2) [facility] HospitalHEPATIC FUNCTION PANEL (84838) (ALB,T.PRO,BILI T,BU/BC,ALT,AST,ALK PHOS)2020-08-22 11:12:00 Test Item Value Reference Range Interpretation Comments TOTAL BILI (test code = 7174989317) 0.6 mg/dL 0.1-1.1 BILI UNCON (test code = 5812778144) 0.2 mg/dL 0.1-1.1 BILI CONJ (test code = 3686333759) 0.0 mg/dL 0-0.3 T PROTEIN (test code = 1673188367) 6.0 g/dL 6.3-8.2 L ALBUMIN (test code = 0522228864) 2.8 g/dL 3.5-5 L ALK PHOS (test code = 5827540766) 222 U/L 34-122 H ALTv (test code = 1742-6) 27 U/L 5-50 AST(SGOT) (test code = 2026347119) 30 U/L 13-40 Lab Interpretation (test code = Abnormal 17404-9) [facility] GLUCOSE (AUTOMATED)2020-08-22 10:11:00 Test Item Value Reference Range Interpretation Comments POCT GLU (test code = 3424009400) 196 mg/dL 70-110 H Lab Interpretation (test code = Abnormal 45117-5) [facility] GLUCOSE (AUTOMATED)2020-08-22 07:15:00 Test Item Value Reference Range Interpretation Comments POCT GLU (test code = 4980435171) 183 mg/dL 70-110 H Lab Interpretation (test code = Abnormal 75101-1) [facility] GLUCOSE (AUTOMATED)2020-08-22 02:30:00 Test Item Value Reference Range Interpretation Comments POCT GLU (test code = 6992919812) 295 mg/dL 70-110 H Lab Interpretation (test code = Abnormal 97575-7) [facility] GLUCOSE (AUTOMATED)2020-08-21 23:46:00 Test Item Value Reference Range Interpretation Comments POCT GLU (test code = 9871382300) 258 mg/dL 70-110 H Lab Interpretation (test code = Abnormal 93821-4) [facility] HospitalC-REACTIVE RPMYZSE4743-10-93 18:50:00 Test Item Value Reference Range Interpretation Comments CRP (test code = 8277548981) 15.5 mg/dL <0.8 H Lab Interpretation (test code = Abnormal 12163-1) [facility])2020-08-21 18:21:00 Test Item Value Reference Range Interpretation Comments POCT GLU (test code = 8773744463) 297 mg/dL 70-110 H Lab Interpretation (test code = Abnormal 17034-7) [facility] HospitalETHANOL2020-11-09 16:24:00 Test Item Value Reference Range Interpretation Comments ALCOHOL (test code = <10 mg/dL 1239088436) JAMES (test code = Toxic Greater than or JAMES) equal to 80 mg/dL. NOTE: Whole blood values are approximately 10% to 15% lower than serum and plasma. [facility]GAL/CLC ONLY - URINE DRUG (IMMUNOASSAY) - 4 ER [id number] 15:36:00 Test Item Value Reference Range Interpretation Comments AMPHET (test code = Negative Negative 7574845292) Cocaine Metabolite (test Negative Negative code = 5729027885) OPIATES (test code = Presumptive Positive Negative A 1195515722) THC (test code = Negative Negative 4539578538) JAMES (test code = JAMES) Urine Drug Cutoff Ranges Amphetamine: ? 1,000 ng/mLCocaine: ? 150 ng/mLOpiates: ? 300 ng/mLCannabinoids: ?50 ng/mL The results are to be used only for medical (i.e., treatment) purposes. Unconfirmed screening results must not be used for non-medical purposes (e.g., employment testing, legal testing). Lab Interpretation (test Abnormal code = 99569-2) [facility] ONLY - SYPHILIS [id number] 15:04:00 Test Item Value Reference Range Interpretation Comments Syphilis IgG/IgM (test Non-reactive Non-reactive code = 06890-7) JAMES (test code = JAMES) Non-reactive - No serologic evidence of T. pallidum infection. Cannot exclude incubating or early syphilis. Submit a second specimen in 2-4 weeks if syphilis is clinically suspected. Equivocal - Further testing to follow. Reactive - Further testing to follow. Lab Interpretation (test Normal code = 03487-1) [facility]ysis[facility] 14:52:00 Test Item Value Reference Range Interpretation Comments APPEARANCE (test code = Clear Clear 1496173371) COLOR (test code = Yellow Yellow 6588224814) PH (test code = 4.8-8.0 9578535928) SP GRAVITY (test code = 1.003-1.030 0358836808) GLU U QUAL (test code = 500 mg/dL Normal A 9905253900) BLOOD (test code = Negative Negative 1083716110) KETONES (test code = 20 mg/dL Negative A 8503318025) PROTEIN (test code = Negative Negative 2887-8) UROBILIN (test code = Normal Normal 2715837619) BILIRUBIN (test code = Negative Negative 3625283199) NITRITE (test code = Negative Negative 5926867230) LEUK RYAN (test code = Negative Negative 4890415579) RBC/HPF (test code = <1 See_Comment [Autom ated message] 5746642434) The system [employer] generated this result transmit ronan reference range : 0 - 3 HPF. The refe rence range was not u sed to interpret th is result as normal/abnormal . WBC/HPF (test code = See_Comment [Autom ated message] 1303178015) The system [employer] generated this result transmit ronan reference range : 0 - 5 HPF. The refe rence range was not u sed to interpret th is result as normal/abnormal . BACTERIA (test code = Negative Negative 7112337120) MUCOUS (test code = Slight Negative LPF A 4939757277) Lab Interpretation (test Abnormal code = 83893-9) [facility] HospitalACTIVATED PARTIAL THRMPLAS [id number] 13:45:00 Test Item Value Reference Range Interpretation Comments APTT Patient (test code = See_Comment [ Automated message] 3173-2) The system [employer] generated this result transmitted ref erence range: 26 - 36 Seconds. The re ference range was not u sed to interpret this result as normal/abnor mal. Lab Interpretation (test Normal code = 92810-5) [facility] HospitalPOCT GLUCOSE (AUTOMATED)2020-08-21 13:45:00 Test Item Value Reference Range Interpretation Comments POCT GLU (test code = 8310217809) 246 mg/dL 70-110 H Lab Interpretation (test code = Abnormal 42779-0) [facility] HospitalHIV 1/2 AG-AB WITH [id number] 12:32:00 Test Item Value Reference Range Interpretation Comments HIV Negative Negative Semi-quantitative (test code = 85029-9) JAMES (test code = Non-reactive for HIV-1 JAMES) antigen and HIV-1/HIV-2 antibodies. ?No laboratory evidence of HIV infection. ?Repeat in 2-4 weeks if acute HIV infection is suspected. [facility] HospitalCB WITH [id number] 12:18:00 Test Item Value Reference Range Interpretation Comments WBC (test code = See_Comment [Automated 8890-2) message] The sy stem which generated this [...] RDW-SD (test code = 44.4 fL 38.5-51.6 20237-9) RDW-CV (test code = 14.5 % 12.1-15.4 788-0) PLT (test code = See_Comment H [Automated 777-3) message] The sy stem which generated this result transmitted reference range : 150 - 328 10*3/ ?L. The reference r torito was not used to interpret this result as normal/abnormal . MPV (test code = 8.5 fL 9.8-13 L 99946-1) NRBC/100 WBC (test See_Comment [Automat ed code = 5265383869) message] The system which generated this result transmitted reference range : 0.0 - 10.0 /100 WBCs. The refer ence range was not u sed to interpret th is result as normal/abnormal . NRBC x10^3 (test code <0.01 See_Comment [Auto mated = 4210291288) message] The s ystem which generated this result transmitted reference range : 10*3/?L. The reference range was not used to interpret this result as normal/abnormal . GRAN MAT (NEUT) % 90.4 % (test code = 770-8) IMM GRAN % (test code 1.30 % = 6412496677) LYMPH % (test code = 7.1 % 736-9) MONO % (test code = 0.5 % 5905-5) EOS % (test code = 0.1 % 713-8) BASO % (test code = 0.6 % 706-2) GRAN MAT x10^3(ANC) 7.74 10*3/uL 1.99-6.95 H (test code = 4135098609) IMM GRAN x10^3 (test 0.11 10*3/uL 0-0.06 H code = 5819889519) LYMPH x10^3 (test code 0.61 10*3/uL 1.09-3.23 L = 731-0) MONO x10^3 (test code 0.04 10*3/uL 0.36-1.02 L = 742-7) EOS x10^3 (test code = <0.03 0.06-0.53 L 711-2) BASO x10^3 (test code 0.05 10*3/uL 0.01-0.09 = 704-7) POLYCHROMASIA (test 2+ See_Comment [Automa ronan code = 60213-4) message] The system which generated this result transmitted reference range : 2+. The referen ce range was not u sed to interpret th is result as normal/abnormal . BANDS (test code = Increased A 0661683194) Lab Interpretation Abnormal (test code = 56036-2) [facility] HospitalPROCALCITONIN2020-11-09 11:48:00 Test Item Value Reference Range Interpretation Comments Procalcitonin (test 0.36 ng/mL <0.07 H code = 3345431908) JAMES (test code = JAMES) INTERPRETATION OF [...] lung abscess/empyema. For further information please refer to:[email or web address] Lab Interpretation Abnormal (test code = 75810-1) [facility] HospitalLAALATE [id number] 10:53:00 Test Item Value Reference Range Interpretation Comments LDH (test code = 8319379533) 351 U/L 300-600 Lab Interpretation (test code = Normal 23750-1) [facility] HospitalSEDIMENTATION [id number] 10:07:00 Test Item Value Reference Range Interpretation Comments ESR (test code = See_Comment H [Automated message] 4828812893) The system [employer] generated this result transmitted ref erence range: 0 - 10 m m/HR. The reference r torito was not used to interpret this result as normal/abnor mal. Lab Interpretation (test Abnormal code = 36397-8) [facility] HospitalPOAL GLUCOSE (AUTOMATED)2020-08-21 09:45:00 Test Item Value Reference Range Interpretation Comments POCT GLU (test code = 8238423709) 287 mg/dL 70-110 H Lab Interpretation (test code = Abnormal 33275-1) [facility] HospitalGlycosylated Hemoglobin (A1C)2020-08-21 09:29:00 Test Item Value Reference Range Interpretation Comments HGB A1C (test code = 4548-4) 9.8 % 4-6 H Lab Interpretation (test code = Abnormal 70384-8) [facility] HospitalCOVID-19 (ID NOW RAPID TESTING)2020-08-21 09:13:00 Test Item Value Reference Range Interpretation Comments SARS-CoV-2 Rapid ID NOW Not Detected Not Detected (test code = 86107-1) JAMES (test code = JAMES) ID NOW COVID-19 Assay is an isothermal nucleic acid amplification test intended for the qualitative detection of nucleic acid from SARS-CoV-2 viral RNA in nasopharyngeal (SAP BI ARCHITECT) specimens. It is used under Emergency Use [...] indicated. Lab Interpretation Normal (test code = 74630-5) [facility] HospitalProthrombin Time / [id number] 08:59:00 Test Item Value Reference Range Interpretation Comments PROTIME PATIENT (test See_Comment H [Auto mated message] code = 5964-2) The system [employer] generated this result transmitted ref erence range: 10.1 - 1 2.6 Seconds. The reference range was not used to int erpret this result as normal/abnormal . INR (test code = 6301-6) Nor mal INR <1.1; Warfarin Therap eutic range 2.0 to 3. 0 or 2.5 to 3.5, dep ending upon the indica tions. Lab Interpretation (test Abnormal code = 23014-2) [facility] HospitalaPTT2020-11-09 08:59:00 Test Item Value Reference Range Interpretation Comments APTT Patient (test code = See_Comment [ Automated message] 3173-2) The system [employer] generated this result transmitted ref erence range: 26 - 36 Seconds. The re ference range was not u sed to interpret this result as normal/abnor mal. Lab Interpretation (test Normal code = 37825-9) [facility] HospitalBASI METABOLIC PANEL (NA, K, CL, CO2, GLUCOSE, BUN, CREATININE, CA)2020-08-21 08:52:00 Test Item Value Reference Range Interpretation Comments NA (test code = 136 mmol/L 135-145 3546585809) K (test code = 4.3 mmol/L 3.5-5 9560290816) CL (test code = 104 mmol/L 98-108 8828338922) CO2 TOTAL (test code = 24 mmol/L 23-31 9292197369) AGAP (test code = 2-16 6724380239) BUN (test code = 8 mg/dL 7-23 7543323399) GLUCOSE (test code = 308 mg/dL 70-110 H 9698770852) CREATININE (test code = 0.72 mg/dL 0.6-1.25 0713753027) CALCIUM (test code = 7.8 mg/dL 8.6-10.6 L 3269522094) eGFR Calculation mL/min/1.73m2 (Non-) (test code = 0121857267) eGFR Calculation mL/min/1.73m2 () (test code = 5307175076) JAMES (test code = JAMES) Association of [...] tests). Lab Interpretation Abnormal (test code = 19980-4) [facility] HospitalHEPATIC FUNCTION PANEL (93588) (ALB,T.PRO,BILI T,BU/BC,ALT,AST,ALK PHOS)2020-08-21 08:52:00 Test Item Value Reference Range Interpretation Comments TOTAL BILI (test code = 8543302192) 0.8 mg/dL 0.1-1.1 BILI UNCON (test code = 6745557441) 0.3 mg/dL 0.1-1.1 BILI CONJ (test code = 1194204896) 0.0 mg/dL 0-0.3 T PROTEIN (test code = 3597889830) 5.7 g/dL 6.3-8.2 L ALBUMIN (test code = 9052342990) 2.7 g/dL 3.5-5 L ALK PHOS (test code = 4988449150) 245 U/L 34-122 H ALTv (test code = 1742-6) 37 U/L 5-50 AST(SGOT) (test code = 3586572311) 43 U/L 13-40 H Lab Interpretation (test code = Abnormal 83185-6) [facility]
[2021-11-02] MEDS ORDERED: KETOROLAC 30 MG/ML INJ ONE (16:06)
[2021-11-02 16:41] LABS: Urine Blood Negative (Negative); Urine Glucose Trace (Negative); Urine Protein Negative (Negative); Urine Specific Gravity 1.025 (1.005-1.030); Urine pH 5.5 (5.0-7.0)
[2021-11-02 16:49] LABS: Urine Bacteria NONE SEEN /HPF (NONE SEEN); Urine RBC <5 /HPF (NONE SEEN)
--- NOTE | 2021-11-02 17:11 | RAD REPORT ---
EXAM DESCRIPTION: RAD - Hip Right 2 View - 11/02/2021 4:51 pm CLINICAL HISTORY: PAIN COMPARISON: No comparisons FINDINGS: No acute fracture. No malalignment. Moderate right acetabular degenerative changes. IMPRESSION: No acute osseous abnormality involving the right hip. Moderate right acetabular degenera tive changes.
--- NOTE | 2021-11-02 17:12 | RAD REPORT ---
EXAM DESCRIPTION: RAD - Pelvis - 11/02/2021 4:51 pm CLINICAL HISTORY: right hip pain COMPARISON: Pelvis Wo Cont dated 06/08/2021 FINDINGS: No acute fracture. No malalignment. Moderate right and severe left acetabular degenerative changes. IMPRESSION: No acute osseous abnormality involving the bony pelvis. Moderate right and severe left a cetabular degenerative changes.
--- NOTE | 2021-11-02 17:19 | RAD REPORT ---
EXAM DESCRIPTION: US - Extrem Venous W Compress Otis - 11/02/2021 5:10 pm CLINICAL HISTORY: Pain COMPARISON: None. TECHNIQUE: Real-time sonographic evaluation of the bilateral lower extremity deep venous systems was performed. FINDINGS: Normal compressibility, flow augmentation, phasic flow and spontaneous flow is identified in both the left and right lower extremity deep venous systems. No intraluminal filling defects seen. IMPRESSION: No DVT in either lower extremity.
--- NOTE | 2021-11-02 17:42 | EDPHYS ---
Physician Documentation [facility] Name: Kiel Ngo Age: 71 yrs Sex: Male : 1950 Arrival Date: 11/02/2021 Time: 15:38 Bed 18 Private MD: ED Physician Stu Banerjee HPI: 11/02 15:45 This 71 yrs old Male presents to ER via EMS with complaints of Right Upper Leg Pain. cp 15:45 The patient presents with pain. The complaints affect the right upper thigh. Context: cp resulted from an unknown cause, the patient is not able to ambulate. 15:45 Associated signs and symptoms: Pertinent negatives fever, numbness, swelling, warmth. cp Treatment prior to arrival includes: patient reports applying 2 fentanyl patches for pain. Historical: - Allergies: 16:12 Demerol; ww 16:12 metformin; ww 16:12 Morphine; ww - PMHx: 16:12 Chronic back pain; ww - PSHx: 16:12 back sx; ww - Immunization history:: Adult Immunizations not immunized. - Social history:: Smoking status: Patient denies any tobacco usage or history of. ROS: 15:50 MS/extremity: Positive for pain, of the right upper thigh. cp 15:50 Eyes: Negative for injury, pain, redness, and discharge. cp 15:50 Constitutional: Negative for body aches, chills, fever, poor PO intake. 15:50 Cardiovascular: Negative for chest pain, palpitations. 15:50 Respiratory: Negative for cough, shortness of breath, wheezing. 15:50 Abdomen/GI: Negative for abdominal pain, nausea, vomiting, and diarrhea. 15:50 Skin: Negative for rash. 15:50 Neuro: Negative for altered mental status, headache, weakness. 15:50 All other systems are negative. Exam: 15:55 Constitutional: The patient appears in no acute distress, alert, awake, cp non-diaphoretic, non-toxic, well developed, well nourished. 15:55 Head/Face: Normocephalic, atraumatic. cp 15:55 Eyes: Periorbital structures: appear normal, Conjunctiva: normal, no exudate, no injection, Sclera: no appreciated abnormality, Lids and lashes: appear normal, bilaterally. 15:55 ENT: External ear(s): are unremarkable, Nose: is normal, Mouth: Lips: moist, Oral mucosa: moist, Posterior pharynx: Airway: no evidence of obstruction, patent. 15:55 Chest/axilla: Inspection: normal, Palpation: is normal, no crepitus, no tenderness. 15:55 Cardiovascular: Rate: tachycardic, Rhythm: regular, Pulses: Pulses are 2+ in right dorsalis pedis artery and left dorsalis pedis artery. 15:55 Respiratory: the patient does not display signs of respiratory distress, Respirations: normal, no use of accessory muscles, no retractions, labored breathing, is not present, Breath sounds: are clear throughout, no decreased breath sounds. 15:55 Abdomen/GI: Inspection: abdomen appears normal, Bowel sounds: active, all quadrants, Palpation: abdomen is soft and non-tender, in all quadrants. 15:55 Musculoskeletal/extremity: Extremities: grossly normal except: noted in the right upper thigh: pain, tenderness, There is no evidence of swelling. 15:55 Skin: cellulitis, is not appreciated, no rash present. 15:55 Neuro: Orientation: to person, place \T\ time. Mentation: is normal. Vital Signs: 16:08 BP 133 / 80; Pulse 110; Resp 19; Pulse Ox 96% on R/A; Weight 83.91 kg; Height 5 ft. 11 ww in. (180.34 cm); Pain 10/10; 17:30 BP 127 / 73; Pulse 110; Resp 17; Pulse Ox 98% on R/A; ww 18:34 BP 141 / 82; Pulse 94; Resp 18; Pulse Ox 96% on R/A; ww 16:08 Body Mass Index 25.80 (83.91 kg, 180.34 cm) MDM: 15:43 Patient medically screened. cp 16:00 Differential diagnosis: DVT, chronic pain, cellulitis. cp 17:40 Data reviewed: vital signs, nurses notes, radiologic studies, plain films, ultrasound. ED course: VSS. Patient reports pain to right upper leg markedly improved. Will discharge to home for continued monitoring. 17:41 Counseling: I had a detailed discussion with the patient and/or guardian regarding: the cp historical points, exam findings, and any diagnostic results supporting the discharge/admit diagnosis, radiology results, to return to the emergency department if symptoms worsen or persist or if there are any questions or concerns that arise at home. 17:41 Response to treatment: the patient's symptoms have markedly improved after treatment, cp and as a result, I will discharge patient. 11/02 15:40 Order name: Urine Microscopic Only; Complete Time: 16:50 cp 11/02 16:15 Order name: Glucose, Ancillary Testing; Complete Time: 16:50 EDMS 11/02 16:50 Interpretation: GLUC,ANCIL 211; Reviewed. cp 11/02 15:40 Order name: XRAY Pelvis; Complete Time: 17:37 cp 11/02 17:37 Interpretation: Report reviewed. cp 11/02 15:40 Order name: XRAY Hip RIGHT 2 view; Complete Time: 17:37 cp 11/02 17:37 Interpretation: Report reviewed. cp 11/02 15:40 Order name: US Extremity Venous W Compression Otis; Complete Time: 17:37 cp 11/02 17:38 Interpretation: Report reviewed. cp 11/02 16:41 Order name: Urine Dipstick-Ancillary; Complete Time: 16:50 EDIA 11/02 15:40 Order name: Accucheck Blood Glucose; Complete Time: 16:04 cp 11/02 15:40 Order name: Urine Dipstick-Ancillary (obtain specimen); Complete Time: 16:40 cp Administered Medications: 16:40 Drug: Ketorolac 30 mg Route: IM; Site: left gluteus; ww Disposition Summary: 11/02/21 17:42 Discharge Ordered Location: Home cp Problem: an acute exacerbation cp Symptoms: have improved cp Condition: Stable cp Diagnosis - Pain in right leg cp Followup: cp - With: Private Physician - When: 2 - 3 days - Reason: Recheck today's complaints Discharge Instructions: - Discharge Summary Sheet cp - Musculoskeletal Pain cp Forms: - Medication Reconciliation Form cp - Thank You Letter cp - Antibiotic Education cp - Prescription Opioid Use cp Prescriptions: - Mobic 7.5 mg Oral Tablet - take 1 tablet by ORAL route once daily take with food; 20 tablet; Refills: 0, cp Product Selection Permitted Addendum: 11/04/2021 07:09 Co-signature as Attending Physician, Stu Banerjee MD I agree with the assessment and c robbins plan of care. Signatures: Dispatcher [employer] EDMS Chriss, Stu, MD MD chetan Page, Stu, PA PA cp Wood, Indigo, RN RN ww Corrections: (The following items were deleted from the chart) 11/03 15:28 15:26 MS/extremity: Positive for pain, of the right upper thigh, cp cp
--- NOTE | 2021-11-02 17:42 | ER ---
Nurse's Notes [facility] Name: Kiel Ngo Age: 71 yrs Sex: Male : 1950 Arrival Date: 11/02/2021 Time: 15:38 Bed 18 Private MD: Diagnosis: Pain in right leg Presentation: 11/02 16:08 Chief complaint: Patient states: Right groin and leg pain. Applied 2 Fentanyl patches ww and no relief. Coronavirus screen: Vaccine status: Patient reports being unvaccinated. Client denies travel out of the [place] in the last 14 days. Ebola Screen: Patient negative for fever greater than or equal to 101.5 degrees Fahrenheit, and additional compatible Ebola Virus Disease symptoms Patient denies exposure to infectious person. Patient denies travel to an Ebola-affected area in the 21 days before illness onset. Initial Sepsis Screen: Does the patient meet any 2 criteria? No. Patient's initial sepsis screen is negative. Does the patient have a suspected source of infection? No. Patient's initial sepsis screen is negative. Risk Assessment: Do you want to hurt yourself or someone else? Patient reports no desire to harm self or others. Onset of symptoms was November 02, 2021. 16:08 Method Of Arrival: EMS: [facility] ww 16:08 Acuity: JOZEF 3 ww Triage Assessment: 16:12 General: Appears in no apparent distress. Behavior is calm, cooperative, appropriate ww for age. Pain: Complains of pain in right upper thigh and right quadriceps. EENT: No deficits noted. No signs and/or symptoms were reported regarding the EENT system. Neuro: Level of Consciousness is awake, alert, obeys commands, Oriented to person, place, time, situation, Speech is normal. Cardiovascular: Denies chest pain, shortness of breath, Capillary refill < 3 seconds Patient's skin is warm and dry. Rhythm is sinus tachycardia. Respiratory: No deficits noted. Airway is patent Respiratory effort is even, unlabored, Respiratory pattern is regular, symmetrical. GI: No deficits noted. No signs and/or symptoms were reported involving the gastrointestinal system. : No deficits noted. No signs and/or symptoms were reported regarding the genitourinary system. Derm: Skin is fragile, is thin. Musculoskeletal: Reports pain in right upper thigh and right quadriceps. Historical: - Allergies: 16:12 Demerol; ww 16:12 metformin; ww 16:12 Morphine; ww - PMHx: 16:12 Chronic back pain; ww - PSHx: 16:12 back sx; ww - Immunization history:: Adult Immunizations not immunized. - Social history:: Smoking status: Patient denies any tobacco usage or history of. Screenin:14 Abuse screen: Denies threats or abuse. Denies injuries from another. Nutritional ww screening: No deficits noted. Tuberculosis screening: No symptoms or risk factors identified. Fall Risk None identified. Assessment: 17:25 Reassessment: Patient appears in no apparent distress at this time. No changes from ww previously documented assessment. Patient and/or family updated on plan of care and expected duration. Pain level reassessed. Patient is alert, oriented x 3, equal unlabored respirations, skin warm/dry/pink. ultrasound at bedside. 18:34 Reassessment: Patient appears in no apparent distress at this time. No changes from ww previously documented assessment. Patient and/or family updated on plan of care and expected duration. Pain level reassessed. Patient is alert, oriented x 3, equal unlabored respirations, skin warm/dry/pink. Vital Signs: 16:08 BP 133 / 80; Pulse 110; Resp 19; Pulse Ox 96% on R/A; Weight 83.91 kg; Height 5 ft. 11 ww in. (180.34 cm); Pain 10/10; 17:30 BP 127 / 73; Pulse 110; Resp 17; Pulse Ox 98% on R/A; ww 18:34 BP 141 / 82; Pulse 94; Resp 18; Pulse Ox 96% on R/A; ww 16:08 Body Mass Index 25.80 (83.91 kg, 180.34 cm) ww ED Course: 15:38 Patient arrived in ED. eb 15:39 Stu Mcarthur PA is PHCP. cp 15:39 Stu Banerjee MD is Attending Physician. cp 15:59 Indigo Hsieh, DIEGO is Primary Nurse. ww 16:12 Triage completed. ww 16:14 Arm band placed on right wrist. ww 16:14 Patient has correct armband on for positive identification. Bed in low position. Call ww light in reach. Side rails up X2. 16:14 Pulse ox on. NIBP on. ww 16:40 Urine Microscopic Only Sent. ww 16:50 XRAY Pelvis In Process Unspecified. EDMS 16:51 XRAY Hip RIGHT 2 view In Process Unspecified. EDMS 17:12 US Extremity Venous W Compression Otis In Process Unspecified. EDMS 19:13 No provider procedures requiring assistance completed. Patient did not have IV access ww during this emergency room visit. Administered Medications: 16:40 Drug: Ketorolac 30 mg Route: IM; Site: left gluteus; ww Outcome: 17:42 Discharge ordered by . nafisa 19:12 Discharged to home via ambulance. ww 19:12 Condition: stable 19:12 Discharge instructions given to patient, Instructed on discharge instructions, follow up and referral plans. medication usage, safety practices, Demonstrated understanding of instructions, follow-up care, medications, Prescriptions given X 1. 19:13 Patient left the ED. ww Signatures: Dispatcher [employer] EDMS Stu Mcarthur PA PA cp Botello, Elizabeth eb Wood, Whitney, RN RN ww
[2021-11-02 19:55] VITALS: BP 141/82; O2SAT 96
== END 2021-11-02 19:13 | disposition home or self-care (01) ==
LOC: ER 15:35
DX: M79.651 Pain in right thigh (principal); Z88.5 Allergy status to narcotic agent; Z88.8 Allergy status to other drugs, medicaments and biological substances
CPT/HCPCS: 72170; 81003; 81015; 82947; 93970; 96372; 99284

== ENCOUNTER 2021-11-15 06:11 | Emergency (ER) | payer OTHER ==
--- OUTSIDE RECORDS SUMMARY | 2021-11-15 06:19 | XMS REPORT | Continuity of Care Document ---
:1950 Author Organization [facility] [place] [facility] t Address [address] [place] [address] Dr. Motley [address] [place] [id number] Care Team Providers Name Role Phone Edy [...] Expiration Date S ource MEDICARE PART A [id number] 2007 \\T\\ B 00:00:00 [employer] INDEMNITY [id number] 2016 00:00:00 MEDICARE PART A [id number] 2014 \\T\\ B - MEDICARE 00:00:00 INDEMNITY/TRADITIO [id number] NAL CHOICE - [employer] 00:00:00 Problems Condition [...] ents Source Name Type Date Date Clinician [facility] Propensi Active Rash 2020- Univers ty to [...] NE INGREDI 3-16 ity of 00:00: [place] 00 [facility] Branch GLIMEPIR DRUG Active Hives Univers EFREN INGREDI 3-16 ity of 00:00: [place] 00 Medical Branch METFORMI DRUG Active ITCHING Univers N INGREDI 3-16 ity of 00:00: [place] 00 Medical Branch Social History Social Habit Start Date Stop Date Quantity Comments Source Exposure to Not sure University of SARS-CoV-2 [facility] (event) Branch History of Chews Tobacco University of tobacco use [facility] History FLOH 2020-11-17 2020-11-17 5 University o f Financial 00:00:00 00:00:00 [facility] History [facility] Food 2020-11-17 2020-11-17 1 Univers ity of Worry 00:00:00 00:00:00 [facility] History [facility] Food 2020-11-17 2020-11-17 1 Univers ity of Scarcity 00:00:00 00:00:00 [facility] History [facility] 2020-11-17 2020-11-17 1 University o f Transport Med 00:00:00 00:00:00 [place] Medic al Branch History [facility] 2020-11-17 2020-11-17 1 University o f Transport Non-Med 00:00:00 00:00:00 [facility] edical Branch Education 2020-11-16 2020-11-16 21 [place] of 00:00:00 00:00:00 [facility] Alcohol intake 2020-11-16 2020-11-16 Ex-drinker [place] of 00:00:00 00:00:00 (finding) [facility] Tobacco use and 2020-08-21 2020-08-21 Former user Universi ty of exposure 00:00:00 00:00:00 [facility] Tobacco Comment 2020-08-21 2020-08-21 quit 10 years Univer sity of 00:00:00 00:00:00 ago, started in [place] Med ical 2nd year of Branch college (~40 years) Alcohol Comment 2020-08-21 2020-08-21 Used to have 2-3 Uni versity of 00:00:00 00:00:00 six-packs of [place] Medica l beer daily x 20 Branch years, quit 2005 History [facility] 2020-08-21 2020-08-21 99 University o f Alcohol Frequency 00:00:00 00:00:00 [place] M edical Branch History SDTX 2020-08-21 2020-08-21 99 [place] o f Alcohol Std 00:00:00 00:00:00 [place] Medical Drinks Branch History SDTX 2020-08-21 2020-08-21 99 University o f Alcohol Binge 00:00:00 00:00:00 [place] Medic al Branch Sex [birth year] At [birth year] Universit y of 00:00:00 00:00:00 [facility] Smoking Status Start Date Stop Date Source Never smoker [facility] Medications Ordered Filled Start Stop Current [...] 0845, Until Discontinu ed, Routine amLODIPine Yes [id number] 10mg Take 1 Univers 10 mg 3-07 tablet by ity of tablet 00:00: mouth [place] 00 daily. Medical Branch clotrimazol Yes [id number] Apply to Univers e 1 % 3-07 face/ears, ity of topical 00:00: armpits, [place] cream 00 pannus and Medical back/any Branch other rash twice a day fluocinonid 0 Yes [id number] Apply to Univers e 0.05 % 3-07 scalp ity of solution 00:00: twice a [place] 00 day Medical Branch triamcinolo 0 Yes [id number] Apply to Univers ne 3-07 back, ity of acetonide 00:00: armpits [place] 0.1 % cream 00 and other Med ical affected Branch areas twice daily, please mix with clotrimazo le hydrOXYzine 0 Yes [id number] 10mg Take 1 Univers 10 mg 3-07 tablet by ity of tablet 00:00: mouth 2 (two) Medical times Branch daily. amLODIPine 2020-0 Yes [id number] 10mg Take 1 Univers 10 mg 3-07 tablet by ity of tablet 00:00: mouth 00 daily. Medical Branch clotrimazol 2020-0 Yes [id number] Apply to Univers e 1 % 3-07 face/ears, ity of topical 00:00: armpits, [place] cream 00 pannus and Medical back/any Branch other rash twice a day fluocinonid 0 Yes [id number] Apply to Univers e 0.05 % 3-07 scalp ity of solution 00:00: twice a day Medical Branch triamcinolo 0 Yes [id number] Apply to Univers ne 3-07 back, ity of acetonide 00:00: armpits [place] 0.1 % cream 00 and other Med ical affected Branch areas twice daily, please mix with clotrimazo le hydrOXYzine 0 Yes [id number] 10mg Take 1 Univers 10 mg 3-07 tablet by ity of tablet 00:00: mouth 2 (two) Medical times Branch daily. amLODIPine Yes [id number] 10mg Take 1 Univers 10 mg 3-07 tablet by ity of tablet 00:00: mouth 00 daily. Medical Branch clotrimazol 0 Yes [id number] Apply to Univers e 1 % 3-07 face/ears, ity of topical 00:00: armpits, [place] cream 00 pannus and Medical back/any Branch other rash twice a day fluocinonid 2020-0 Yes [id number] Apply to Univers e 0.05 % 3-07 scalp ity of solution 00:00: twice a [place] 00 day Medical Branch triamcinolo 2020-0 Yes [id number] Apply to Univers ne 3-07 back, ity of acetonide 00:00: armpits [place] 0.1 % cream 00 and other Med ical affected Branch areas twice daily, please mix with clotrimazo le hydrOXYzine Yes [id number] 10mg Take 1 Univers 10 mg 3-07 tablet by ity of tablet 00:00: mouth 2 [place] 00 (two) Medical times Branch daily. amLODIPine Yes [id number] 10mg Take 1 Univers 10 mg 3-07 tablet by ity of tablet 00:00: mouth [place] 00 daily. Medical Branch clotrimazol Yes [id number] Apply to Univers e 1 % 3-07 face/ears, ity of topical 00:00: armpits, [place] cream 00 pannus and Medical back/any Branch other rash twice a day fluocinonid Yes [id number] Apply to Univers e 0.05 % 307 scalp ity of solution 00:00: twice a [place] 00 day Medical Branch triamcinolo Yes [id number] Apply to Univers ne 3-07 back, ity of acetonide 00:00: armpits [place] 0.1 % cream 00 and other Med ical affected Branch areas twice daily, please mix with clotrimazo le hydrOXYzine Yes [id number] 10mg Take 1 Univers 10 mg 3-07 tablet by ity of tablet 00:00: mouth 2 [place] 00 (two) Medical times Branch daily. cephALEXin 2020-2020- No [id number] 500mg Take 1 Univers 500 mg 3-04 14-11 capsule by ity of capsule 00:00: 05:59 mouth [place] 00 :00 every 6 Medical (six) Branch hours for 3 days. cephALEXin 2020-0 2020- No [id number] 500mg Take 1 Univers 500 mg 3-04 14-11 capsule by ity of capsule 00:00: 05:59 mouth [place] 00 :00 every 6 Medical (six) Branch hours for 3 days. hydrOXYzine 2020-2020- No [id number] 10mg Take 1 Univers 10 mg 3- 03-07 tablet by ity of tablet 00:00: 00:00 mouth 2 [place] 00 :00 (two) Medical times Branch daily. morpHINE Yes 4mg 4 mg, Slow Uni vers injection 4 - IV Push, ity of mg 22:40: Q6HPRN, [place] 02 Starting Medical 12/16/20 Branch at 1640, [...] IV [place] 500 mL 00 :00 Piggyback, [facility] ONCE, 1 Branch dose, Fri12/15/20 at 1000, STAT HYDROmorpho Yes 4mg 4 mg, Unive ne 12-15 Oral, BID, ity of (DILAUDID) 15:30: First dose [place] tablet 4 mg 00 (after Medica l last Branch modificati on) on Fri12/15/20 at 0930, Until Discontinu ed, Routine amLODIPine 2020- No [id number] 10mg Take 1 Univers 10 mg 12-15 tablet by ity of tablet 00:00: 00:00 mouth [place] 00 :00 daily. Medical Branch HYDROmorpho No 1mg 1 mg, Univ ers ne 12-14 Oral, ity of (DILAUDID) 17:35: 15:18 Q6HPRN, [place] tablet 1 mg 30 :06 Starting Medi [facility] 12/14/20 Branch at 1135, Until Fri12/15/20 at 0918, Routine, Pain (scale 7-10) hydrOXYzine Yes 10mg 10 mg, [facility] ers (ATARAX) 12-14 Oral, BID, ity o f tablet 10 17:30: First dose [place] mg 00 on [facility] 12/14/20 at Branch 1130, Until Discontinu ed, Routine lisinopriL Yes 5mg 5 mg, Univer s (PRINIVIL,Z 12-14 Oral, ity of ESTRIL) 17:30: DAILY, [place] tablet 5 mg 00 First dose Me dical on [facility] 12/14/20 at 1130, Until Discontinu ed, Routine triamcinolo 2020- No [id number] Apply to [facility] 12-14 back, ity of acetonide 00:00: 00:00 armpits [place] 0.1 % cream 00 :00 and other Med ical affected Branch areas twice daily, please mix with clotrimazo le clotrimazol 2020- No [id number] Apply to Univers e 1 % 12-14 face/ears, ity of topical 00:00: 00:00 armpits, [place] cream 00 :00 pannus and Medical back/any Branch other rash twice a day fluocinonid 2020- No [id number] Apply to Univers e 0.05 % 12-14 scalp ity of solution 00:00: 00:00 twice a [place] 00 :00 day Medical Branch hydrOXYzine 2020- No [id number] 10mg Take 1 Univers 10 mg 12-14 [...] Push, ity of (PF)) 10:07: Q6HPRN, [place] injection 4 28 Starting Medi jose c mg 12/13/20 Branch at 0407, Until Discontinu ed, Routine, Nausea and Vomiting (N/V) ondansetron 2020- No 4mg 4 mg, Slow Univers (ZOFRAN 12-13-03 IV Push, ity of (PF)) 04:55: 05:44 ONCE, 1 [place] injection 4 00 :00 dose, [facility] ical mg 12/12/20 at Branch 2300, Routine traMADoL 2020- No 50mg 50 mg, Univer s (ULTRAM) 3 03-03 Oral, ity of tablet 50 03:45: 03:34 ONCE, 1 [place] mg 00 :00 dose, [facility] 12/12/20 at Branch 2145, Routine insulin Yes 15U 15 Units, Univ rs glargine 12-12 Subcutaneo ity o f (LANTUS 15:00: us, DAILY, [place] U-100) 00 First dose Medical injection on [facility] 15 Units 12/12/20 at 0900, Until Discontinu ed hydrOXYzine 2020- No 10mg 10 mg, Uni vers (ATARAX) 12-12 03-02 Oral, ity of tablet 10 08:15: 07:33 ONCE, 1 [place] mg 00 :00 dose, [facility] 12/12/20 at Branch 0215, Routine mirtazapine Yes 7.5mg 7.5 mg, Un toi (REMERON) 3-02 Oral, QHS, ity of tablet 7.5 03:00: First dose [place] mg 00 on [facility] 12/11/20 at Branch 2100, Until Discontinu ed, Routine venlafaxine Yes 300mg 300 mg, Un toi XR (EFFEXOR 3-02 Oral, QHS, it y of XR) 24 hr 03:00: First dose [place] capsule 300 00 on [facility] Medica l mg 12/11/20 at Branch 2100, Until Discontinu ed, Routine fluocinonid Yes Topical, Un toi e (LIDEX) 3 BID, First ity of 0.05 % 02:00: dose on [place] solution 00 Fri12/11/20 Medic al at 2000, Branch Until Discontinu ed, Routine acetaminoph 2020- No 1{tbl} 1 tablet, Univers en-codeine 12-11 03-05 Oral, ity of (TYLENOL 23:23: 13:49 Q6HPRN, [place] #3) 300-30 43 :08 Starting Medic al mg tablet 1 Fri12/11/20 Br anch tablet at 1723, Until Fri12/15/20 at 0749, Routine, Pain (scale 4-6) enoxaparin Yes 40mg 40 mg, Unive rs (LOVENOX) 12-11 Subcutaneo ity of injection 23:00: us, DAILY, [place] 40 mg 00 First dose Medical on Fri [place] 12/11/20 at 1700, Until Discontinu ed, Routine [...] ed, Routine insulin Yes 5U 5 Units, [facility] s lispro 12-11 Subcutaneo ity of (human) 18:00: us, TID [place] (HumaLOG 00 MEALS, Medical U-100) First dose Branch injection 5 on [facility] Units 12/11/20 at 1200, Until Discontinu ed Polyethylen Yes 17g 17 g, [facility] rs e Glycol 12-11 Oral, ity of 3350 17:47: [id number], [place] (MIRALAX) 05 Starting Medica l powder 17 g 12/11/20 Br anch at 1147, Until Discontinu ed, Routine, Constipati on acetaminoph Yes 650mg 650 mg, Un toi en 12-11 Oral, ity of (TYLENOL) 16:51: Q6HPRN, [place] tablet 650 28 Starting Medic al mg [...]
Duration of therapy: 72 hours sennosides- Yes [id number] 1{tbl} Take 1 [facility] docusate 2-09 tablet by ity of sodium 00:00: mouth 2 [place] 8.6-50 mg 00 (two) Medical per tablet times Branch daily. hydrocortis Yes [id number] Apply to [facility] one 2.5 % 11-21 affected ity of cream 00:00: area(s) 2 [place] 00 (two) Medical times Branch daily. blood sugar Yes [id number] Use to [facility] diagnostic 2 check ity of (FREESTYLE 00:00: blood [place] LITE 00 glucose Medical STRIPS) 4-5 times Branch strip daily. Polyethylen Yes [id number] 17g Take 1 Univers e Glycol 2-09 Packet by ity of 3350 17 00:00: mouth [place] gram powder 00 every 24 Medi jose c (twenty-fo Branch ur) hours as needed for Constipati on. sennosides- Yes [id number] 1{tbl} Take 1 Univers docusate 2-09 tablet by ity of sodium 00:00: mouth 2 [place] 8.6-50 mg 00 (two) Medical per tablet times Branch daily. hydrocortis 2020-0 Yes [id number] Apply to Univers one 2.5 % 2-09 affected ity of cream 00:00: area(s) 2 [place] 00 (two) Medical times Branch daily. blood sugar 2020-0 Yes [id number] Use to Univers diagnostic 11-21 check ity of (FREESTYLE 00:00: blood [place] LITE 00 glucose Medical STRIPS) 4-5 times Branch strip daily. Polyethylen 2020-0 Yes [id number] 17g Take 1 Univers e Glycol 2-09 Packet by ity of 3350 17 00:00: mouth [place] gram powder 00 every 24 Medi jose c (twenty-fo Branch ur) hours as needed for Constipati on. sennosides- 2020-0 Yes [id number] 1{tbl} Take 1 Univers docusate 2-09 tablet by ity of sodium 00:00: mouth 2 [place] 8.6-50 mg 00 (two) Medical per tablet times Branch daily. hydrocortis 2020-0 Yes [id number] Apply to Univers one 2.5 % 2-09 affected ity of cream 00:00: area(s) 2 [place] 00 (two) Medical times Branch daily. blood sugar 2020-0 Yes [id number] Use to [facility] diagnostic 11-21 check ity of (FREESTYLE 00:00: blood [place] LITE 00 glucose Medical STRIPS) 4-5 times Branch strip daily. Polyethylen 2020-0 Yes [id number] 17g Take 1 Univers e Glycol 2-09 Packet by ity of 3350 17 00:00: mouth [place] gram powder 00 every 24 Medi jose c (twenty-fo Branch ur) hours as needed for Constipati on. sennosides- 2020-0 Yes [id number] 1{tbl} Take 1 Univers docusate 2-09 tablet by ity of sodium 00:00: mouth 2 [place] 8.6-50 mg 00 (two) Medical per tablet times Branch daily. hydrocortis 2020-0 Yes [id number] Apply to Univers one 2.5 % 2-09 affected ity of cream 00:00: area(s) 2 [place] 00 (two) Medical times Branch daily. blood sugar Yes [id number] Use to [facility] diagnostic 11-21 check ity of (FREESTYLE 00:00: blood [place] LITE 00 glucose Medical STRIPS) 4-5 times Branch strip daily. Polyethylen Yes [id number] 17g Take 1 Univers e Glycol 11-21 Packet by ity of 3350 17 00:00: mouth [place] gram powder 00 every 24 Medi jose c (twenty-fo Branch ur) hours as needed for Constipati on. Insulin 2020- No [id number] 15U inject 15 Univers Glargine 11-21 Units ity of (LANTUS 00:00: 05:59 under the [place] SOLOSTAR 00 :00 skin every Medic al U-100 morning Branch INSULIN) for 30 100 unit/mL days. (3 mL) injection venlafaxine 2020- No [id number] 150mg Take 1 Univers XR 150 mg 11-21 capsule by ity of 24 hr 00:00: 05:59 mouth 3 [place] capsule 00 :00 (three) Medical times Branch daily for 30 days. Insulin 2020- No [id number] 15U inject 15 Univers Glargine 11-2112 Units ity of (LANTUS 00:00: 05:59 under the [employer] SOLOSTAR 00 :00 skin every Medic al U-100 morning Branch INSULIN) for 30 100 unit/mL days. (3 mL) injection venlafaxine 2020- No [id number] 150mg Take 1 Univers XR 150 mg 11-21 capsule by ity of 24 hr 00:00: 05:59 mouth 3 [place] capsule 00 :00 (three) Medical times Branch daily for 30 days. triamcinolo 2020- No [id number] Apply to [facility] ne 11-21 area(s) 2 ity of acetonide 00:00: 00:00 (two) [place] 0.1 % cream 00 :00 times Medical daily. Branch cephALEXin 2020- No [id number] 1000mg Take 2 Univers 500 mg 11-21 capsules ity of capsule 00:00: 00:00 by mouth 3 [place] 00 :00 (three) Medical times Branch daily. doxycycline 2020- No [id number] 100mg Take 1 Univers hyclate 100 11-21 capsule by i ty of mg capsule 00:00: 00:00 mouth [place] 00 :00 every 12 Medical (twelve) Branch hours. lactobacill 2020- No [id number] 1{tbl} Take 1 Univers us 11-21 tablet by ity of acidophilus 00:00: 00:00 mouth 2 [place] 25 million 00 :00 (two) Medical cell -100 times Branch mg captab daily. bisacodyL 2020- No [id number] 10mg Insert 1 Univers 10 mg 11-21 Suppositor ity of suppository 00:00: 00:00 y into [place] 00 :00 rectum at Medical bedtime as Branch needed for Constipati on. ALPRAZolam 2020- No [id number] .25mg Take 1 Univers (XANAX) 11-21 tablet by ity of 0.25 mg 00:00: 00:00 mouth 2 [place] tablet 00 :00 (two) Medical times Branch daily. hydrOXYzine 2020- No [id number] 20mg Take 2 Univers 10 mg 11-21 [...] ity of (LANTUS 01:13: under the [place] SOLOSTAR) 36 skin. Medical 100 unit/mL Branch [...] ity of (LANTUS 01:13: under the [place] [facility] 36 skin. Medical 100 unit/mL Branch (3 mL) InPn INSULIN 2019-10 Yes 5U inject 5 Univer s ASPART 1-12 Units ity of (NOVOLOG 01:13: under the [facility] s FLEXPEN SC) 36 skin. Medical Branch [...] ity of (LANTUS 01:13: under the [place] SOLOSTVT) 36 skin. Medical 100 unit/mL Branch (3 mL) In INSULIN 2019- Yes 5U inject 5 Univer s ASPART 1-12 Units ity of (NOVOLOG 01:13: [facility] FLEXP[facility]) 36 skin. Medical [...] ity of (LANTUS 01:13: under the [place] [facility]) 36 skin. Medical 100 unit/mL Branch (3 mL) In INSULIN 2019-10 Yes 5U inject 5 Univer s ASPART 1-12 Units ity of (NOVOLOG 01:13: under the [facility] s FLEXPEN SC) 36 skin. Medical Branch [...] ity of (LANTUS 01:13: under the [place] SOLOSTAR) 36 skin. Medical 100 unit/mL Branch (3 mL) InPn INSULIN 2019-10 Yes 5U inject 5 Univer s ASPART 1-12 Units ity of (NOVOLOG 01:13: under the [facility] s FLEXPEN SC) 36 skin. Medical Branch [...] ity of (LANTUS 01:13: under the [place] SOLOSTAR) 36 skin. Medical 100 unit/mL Branch [...] 34 :00 Medical Branch hydrocortis 2019- Yes [id number] Apply to Univers one 2.5 % 1-11 affected ity of cream 00:00: area(s) 2 [place] (two) Medical times Branch daily. hydrOXYzine 2019-10 Yes [id number] 20mg Take 2 Univers 10 mg 1-11 tablets by ity of tablet 00:00: mouth [place] 00 every 8 Medical (eight) Branch hours as needed for Itching or Anxiety. Polyethylen 2019-10 Yes [id number] 17g Take 1 Univers e Glycol 1-11 Packet by ity of 3350 17 00:00: mouth [place] gram powder 00 every 24 Medi jose c (twenty-fo Branch ur) hours as needed for Constipati on. hydrocortis 2019-10 Yes [id number] Apply to Univers one 2.5 % 1-11 affected ity of cream 00:00: area(s) 2 [place] 00 (two) Medical times Branch daily. hydrOXYzine 2019- Yes [id number] 20mg Take 2 Univers 10 mg 1-11 tablets by ity of tablet 00:00: mouth [place] 00 every 8 Medical (eight) Branch hours as needed for Itching or Anxiety. Polyethylen 2019- Yes [id number] 17g Take 1 Univers e Glycol 1-11 Packet by ity of 3350 17 00:00: mouth [place] gram powder 00 every 24 Medi jose c (twenty-fo Branch ur) hours as needed for Constipati on. hydrocortis 2019- Yes [id number] Apply to Univers one 2.5 % 1-11 affected ity of cream 00:00: area(s) 2 [place] 00 (two) Medical times Branch daily. hydrOXYzine 2019- Yes [id number] 20mg Take 2 Univers 10 mg 1-11 tablets by ity of tablet 00:00: mouth [place] 00 every 8 Medical (eight) Branch hours as needed for Itching or Anxiety. Polyethylen 2020- Yes [id number] 17g Take 1 Univers e Glycol 1-11 Packet by ity of 3350 17 00:00: mouth [place] gram powder 00 every 24 Medi jose c (twenty-fo Branch ur) hours as needed for Constipati on. hydrocortis 2019- Yes [id number] Apply to Univers one 2.5 % 1-11 affected ity of cream 00:00: area(s) 2 [place] 00 (two) Medical times Branch daily. hydrOXYzine 2019- Yes [id number] 20mg Take 2 Univers 10 mg 1-11 tablets by ity of tablet 00:00: mouth [place] 00 every 8 Medical (eight) Branch hours as needed for Itching or Anxiety. Polyethylen 2019- Yes [id number] 17g Take 1 Univers e Glycol 1-11 Packet by ity of 3350 17 00:00: mouth [place] gram powder 00 every 24 Medi jose c (twenty-fo Branch ur) hours as needed for Constipati on. hydrocortis 2019-10 Yes [id number] Apply to Univers one 2.5 % 1-11 affected ity of cream 00:00: area(s) 2 [place] 00 (two) Medical times Branch daily. hydrOXYzine 2019- Yes [id number] 20mg Take 2 Univers 10 mg 1-11 tablets by ity of tablet 00:00: mouth [place] 00 every 8 Medical (eight) Branch hours as needed for Itching or Anxiety. Polyethylen 2019- Yes [id number] 17g Take 1 Univers e Glycol 1-11 Packet by ity of 3350 17 00:00: mouth [place] gram powder 00 every 24 Medi jose c (twenty-fo Branch ur) hours as needed for Constipati on. hydrocortis 2019- Yes [id number] Apply to Univers one 2.5 % 1-11 affected ity of cream 00:00: area(s) 2 [place] 00 (two) Medical times Branch daily. hydrOXYzine 2019- Yes [id number] 20mg Take 2 Univers 10 mg 1-11 tablets by ity of tablet 00:00: mouth [place] 00 every 8 Medical (eight) Branch hours as needed for Itching or Anxiety. Polyethylen 2019- Yes [id number] 17g Take 1 Univers e Glycol 1-11 Packet by ity of 3350 17 00:00: mouth [place] gram powder 00 every 24 Medi jose c (twenty-fo Branch ur) hours as needed for Constipati on. hydrocortis 2019-10 Yes [id number] Apply to Univers one 2.5 % 1-11 affected ity of cream 00:00: area(s) 2 [place] 00 (two) Medical times Branch daily. hydrOXYzine 2019-10 Yes [id number] 20mg Take 2 Univers 10 mg 1-11 tablets by ity of tablet 00:00: mouth [place] 00 every 8 Medical (eight) Branch hours as needed for Itching or Anxiety. Polyethylen 2019-10 Yes [id number] 17g Take 1 Univers e Glycol 1-11 Packet by ity of 3350 17 00:00: mouth [place] gram powder 00 every 24 Medi jose c (twenty-fo Branch ur) hours as needed for Constipati on. triamcinolo 2019-10 2020- No [id number] Apply to [facility] 10-23 area(s) 2 ity of acetonide 00:00: 05:59 (two) [place] 0.1 % cream 00 :00 times Medical daily for Branch 14 days. triamcinolo 2019-10 2020- No [id number] Apply to [facility] 10-23 area(s) 2 ity of acetonide 00:00: 05:59 (two) [place] 0.1 % cream 00 :00 times Medical daily for Branch 14 days. triamcinolo 2019-10 2020- No [id number] Apply to [facility] 10-23 area(s) 2 ity of acetonide 00:00: 05:59 (two) [place] 0.1 % cream 00 :00 times Medical daily for Branch 14 days. KCL 2019-10 2020- No 40meq 40 mEq, Univers (KLOR-CON 10-22- Oral, ONCE ity of M20) tablet 16:15: 16:23 NOW, 1 [place] 40 mEq 00 :00 dose, [facility] Medical 08/22/20 Branch at 1015, Routine [...] ity o f cream 02:00: Affected [place] 00 Areas), Medical BID, First Branch dose on [facility] 08/21/20 at 2000, Until Discontinu ed, Routine triamcinolo 2019- Yes Topical, Un toi ne 1-10 BID, First ity of acetonide 02:00: dose on [place] (TRIDERM) 00 [facility] Medical 0.1 % cream 08/21/20 at Br anch 2000, Until Discontinu ed, Routine hydrOXYzine 2019-10 Yes 20mg 20 mg, Univ ers (ATARAX) 09 Oral, ity of tablet 20 17:39: Q8HPRN, [place] mg 12 Starting Medical [facility] Branch 08/21/20 at 1139, Until Discontinu ed, Routine, Itching, Anxiety sennosides- 2019-10 Yes 1{tbl} 1 tablet, Univers docusate 10-21 Oral, ity of sodium 15:00: DAILY, [place] (SENOKOT-S) 00 First dose Me dical 8.6-50 mg on [facility] Branch per tablet 08/21/20 at 1 tablet 0900, Until Discontinu ed, Routine hydrocortis 2019-10 2020- No Topical Un toi one 1 % 10-21- (Apply To ity of cream 15:00: 22:54 Affected [place] 00 :48 Areas), Medical DAILY, Branch First dose on [facility] 08/21/20 at 0900, Until Discontinu ed, Routine venlafaxine 2019-10 Yes 150mg 150 mg, Un toi XR (EFFEXOR 09 Oral, TID, it y of XR) 24 hr 14:00: First dose [place] capsule 150 00 on [facility] Medica l mg 08/21/20 at Branch 0800, Until Discontinu ed, Routine heparin 2019-10 Yes 5000U 5,000 Univers (porcine) -09 Units, ity of injection 14:00: Subcutaneo [place] 5,000 Units 00 us, Q12H, Med ical First dose Branch on [facility] 08/21/20 at 0800, Until Discontinu ed, Routine diphenhydrA 2019-10 2020- No 25mg 25 mg, Uni vers MINE 10-21 Oral, ity of (BENADRYL) 12:56: 17:39 Q8HPRN, [place] tablet 25 59 :43 Starting Medica l mg [facility] 08/21/20 at 0656, Until [facility] 08/21/20 at 1139, Routine, Itching, Mild Rash, Congestion /Allergies , alternate with hydroxyzin e hydrOXYzine 2019-10- No 10mg 10 mg, Uni vers (ATARAX) 10-21 Oral, ity of tablet 10 10:20: 12:57 Q6HPRN, [place] mg 22 :12 Starting [facility] 08/21/20 at 0420, Until [facility] 08/21/20 at 0657, Routine, Itching, Anxiety Sliding 2019-10 Yes Subcutaneo [facility] ers Scale 09 us, Q4H, ity of Insulin - 10:00: First dose [place] Aspart 00 (after Medical (NOVOLOG) + last Branch Fsbg modificati Testing on) on [facility] 08/21/20 at 0400, Until Discontinu ed, Routine lidocaine 5 2019-10 2020- No Topical, U nivers % ointment 10-21 ONCE, 1 ity o f 09:30: 09:14 dose, [facility] 00 :00 08/21/20 at [facility] 0330, Branch Routine Polyethylen 2019-10 Yes 17g 17 g, [facility] rs e Glycol 10-21 Oral, ity of 3350 08:29: [id number], [place] (MIRALAX) Starting Medica l powder 17 g [facility] 08/21/20 at 0229, Until Discontinu ed, Routine, Constipati on lanolin 2019-10 Yes Topical, [facility] alcohol-mo- 10-21 PRN, ity of w.pet-ceres 08:26: [place] (EUCERIN) 30 [facility] cream 08/21/20 at Branch 0226, Until Discontinu ed, Routine, Dermatitis /Rash ALPRAZolam 2019-10 Yes .25mg 0.25 mg, Un toi (XANAX) 10-21 Oral, ity of tablet 0.25 08:25: BIDPRN, Jeff as mg 41 Starting [facility] 08/21/20 at 0225, Until Discontinu [...] hours. Branch blood sugar Yes Use to [employer] ers diagnostic 4-25 check ity of (FREESTYLE 00:00: blood [place] LITE 00 glucose Medical STRIPS) 4-5 times Branch strip daily. blood sugar Yes Use to [employer] ers diagnostic 4-25 check ity of (FREESTYLE 00:00: blood [place] LITE 00 glucose Medical STRIPS) 4-5 times Branch strip daily. blood sugar Yes Use to Univ ers diagnostic 4-25 check ity of (FREESTYLE 00:00: blood [place] LITE 00 glucose Medical STRIPS) 4-5 times Branch strip daily. blood sugar Yes Use to [employer] ers diagnostic 4-25 check ity of (FREESTYLE 00:00: blood [place] LITE 00 glucose Medical STRIPS) 4-5 times Branch strip daily. blood sugar Yes Use to [employer] ers diagnostic 4-25 check ity of (FREESTYLE 00:00: blood [place] LITE 00 glucose Medical STRIPS) 4-5 times Branch strip daily. blood sugar Yes Use to [facility] ers diagnostic 4-25 check ity of (FREESTYLE [...] 148 mm[Hg] Univer sity of pressure [place] [facility] Diastolic blood 2021-08-22 13:00:00 84 mm[Hg] Unive rsity of pressure [facility] Heart rate 2021-08-22 13:00:00 103 /min [facility] Respiratory rate 2021-08-22 13:00:00 18 /min Univ ersity of [place] [facility] [place] Oxygen saturation in 2021-08-22 13:00:00 95 /min University of Arterial blood by [facility] Pulse oximetry Branch Body temperature 2021-08-22 12:22:00 36.72 [place] Univ ersity of [place] [facility] Systolic blood 2020-12-17 18:35:00 139 mm[Hg] Univer sity of pressure [place] [facility] Diastolic blood 2020-12-17 18:35:00 87 mm[Hg] Unive rsity of pressure [place] [facility] Heart rate 2020-12-17 18:35:00 110 /min [facility] Body temperature 2020-12-17 18:35:00 37.72 [place] Univ ersity of [place] [facility] Respiratory rate 2020-12-17 18:35:00 18 /min Univ ersity of [place] [facility] Oxygen saturation in 2020-12-17 18:35:00 93 /min University of Arterial blood by [facility] Pulse oximetry Branch Body height 2020-12-12 08:21:00 180.3 cm [facility] Body weight 2020-12-12 08:21:00 103.42 kg [facility] BMI 2020-12-12 08:21:00 31.80 kg/m2 [facility] Systolic blood 2020-12-17 18:35:00 139 mm[Hg] Univer sity of pressure [place] [facility] Diastolic blood 2020-12-17 18:35:00 87 mm[Hg] Unive rsity of pressure [place] [facility] Heart rate 2020-12-17 18:35:00 110 /min [facility]i ty [facility] [place] [facility] [place] Body temperature 2020-12-17 18:35:00 37.72 [place] Univ ersity of [place] [facility] Respiratory rate 2020-12-17 18:35:00 18 /min Univ ersity of [place] [facility] Oxygen saturation in 2020-12-17 18:35:00 93 /min University of Arterial blood by [place] [employer] jose [facility] Pulse oximetry Branch Body height 2020-12-12 08:21:00 180.3 cm [facility] [place] [facility] [place] Body weight 2020-12-12 08:21:00 103.42 kg [facility] [place] [facility] [place] BMI 2020-12-12 08:21:00 31.80 kg/m2 [facility] [place] [facility] Systolic blood 2020-08-23 19:27:00 140 mm[Hg] Univer sity of pressure [place] [facility] Diastolic blood 2020-08-23 19:27:00 79 mm[Hg] Unive rsity of pressure [place] [facility] Heart rate 2020-08-23 19:27:00 99 /min [facility]i ty [facility] [place] [facility] [place] Body temperature 2020-08-23 19:27:00 36 [place] Univ ersity of [place] [facility] Respiratory rate 2020-08-23 19:27:00 18 /min Univ ersity of [place] [facility] Oxygen saturation in 2020-08-23 19:27:00 93 /min University of Arterial blood by [place] [employer] jose c Pulse oximetry Branch Body weight 2020-08-21 07:20:00 104.962 kg [facility] [place] [facility] BMI 2020-08-21 07:20:00 32.27 kg/m2 [facility] [place] [facility] Systolic blood 2020-08-23 19:27:00 140 mm[Hg] Univer sity of pressure [place] [facility] Diastolic blood 2020-08-23 19:27:00 79 mm[Hg] Unive rsity of pressure [place] [facility] Heart rate 2020-08-23 19:27:00 99 /min [facility] [place] [facility] Body temperature 2020-08-23 19:27:00 36 [place] [facility] Respiratory rate 2020-08-23 19:27:00 18 /min [facility] Oxygen saturation in 2020-08-23 19:27:00 93 /min [facility] Arterial blood by [facility] Pulse oximetry [place] Body weight 2020-08-21 07:20:00 104.962 kg [facility] BMI 2020-08-21 07:20:00 32.27 kg/m2 [facility] Procedures Procedure Date / Time Performing Clinician Source Performed POCT GLUCOSE (AUTOMATED) 2020-12-17 15:42:00 Harrison[facility]OL[facility] PAN[facility] 2020-12-17 10:45:00 Paul Bean [facility] (NA, K, CL, CO2, GLUCOSE, [place] Medica l Branch BUN, CREATININE, CA) CBC WITH DIFF 2020-12-17 10:45:00 Paul Bean [facility] POCT GLUCOSE (AUTOMATED) 2020-12-17 02:36:00 Harrison, Premal G Uni [facility] XR TIBIA FIBULA 2 VW LEFT 2020-12-16 23:38:00 Paul Bean [facility] POCT GLUCOSE (AUTOMATED) 2020-12-16 23:20:00 Harrison, [facility]al [facility] PO[facility]UCOSE (AUTOMATED) 2020-12-16 20:10:00 Harrison, Premal G Uni versity of [facility] POCT GLUCOSE (AUTOMATED) 2020-12-16 14:43:00 Harrison, Premal [facility] METABOLIC PANEL 2020-12-16 13:51:00 Paul Bean [facility] (NA, K, CL, CO2, GLUCOSE, [place] [facility] l Branch BUN, CREATININE, CA) CBC WITH DIFF 2020-12-16 13:51:00 Paul Bean [facility] POCT GLUCOSE (AUTOMATED) 2020-12-16 04:00:00 Harrison, Premal [facility] PO[facility] GLUCOSE (AUTOMATED) 2020-12-16 00:14:00 Harrison, Premal G Uni versity of [facility] CT CHEST PULMONARY 2020-12-15 22:29:38 Paul Bean [facility] ANGIOGRAM [facility] POCT GLUCOSE (AUTOMATED) 2020-12-15 19:26:00 Harrison, Premal G Uni versity of [facility] POCT GLUCOSE (AUTOMATED) 2020-12-15 15:13:00 Harrison, Premal G Uni versity of [facility] HB ECG ROUTINE & RHYTHM 2020-12-15 14:25:27 Cailin Romo [facility] Branch MAGNESIUM 2020-12-15 12:01:00 Paul Bean Sivakumar [facility] BASIC METABOLIC PANEL 2020-12-15 12:01:00 Paul Bean [facility] (NA, K, CL, CO2, GLUCOSE, [place] [facility] BUN, CREATININE, CA) CBC WITH DIFF 2020-12-15 12:01:00 Paul Bean [facility] POCT GLUCOSE (AUTOMATED) 2020-12-15 03:57:00 Harrison, Premal G Uni versity of [facility] POCT GLUCOSE (AUTOMATED) 2020-12-14 23:31:00 Harrison, Premal G Uni versity of [facility] POCT GLUCOSE (AUTOMATED) 2020-12-14 19:08:00 Harrison, Premal G Uni versity of [facility] POCT GLUCOSE (AUTOMATED) 2020-12-14 15:11:00 Harrison, Premal G Uni versity of [facility] POCT GLUCOSE (AUTOMATED) 2020-12-14 02:36:00 Harrison, Premal G Uni versity of [facility] POCT GLUCOSE (AUTOMATED) 2020-12-13 23:32:00 Harrison, Premal G Uni versity of [facility] POCT GLUCOSE (AUTOMATED) 2020-12-13 18:08:00 Harrison, Premal G Uni versity of [facility] BASIC METABOLIC PANEL 2020-12-13 15:39:00 Paul Bean [facility] (NA, K, CL, CO2, GLUCOSE, [place] [facility] BUN, CREATININE, CA) CBC WITH DIFF 2020-12-13 15:39:00 Paul Bean Sivakumar [facility] POCT GLUCOSE (AUTOMATED) 2020-12-13 14:06:00 Harrison, [facility] POCT GLUCOSE (AUTOMATED) 2020-12-13 03:07:00 Harrison, [facility] PO[facility]UCOSE (AUTOMATED) 2020-12-12 23:52:00 Harrison, [facility] POCT GLUCOSE (AUTOMATED) 2020-12-12 20:28:00 Harrison, [facility] PO[facility]UCOSE (AUTOMATED) 2020-12-12 19:14:00 Harrison, Premal [facility] PO[facility] GLUCOSE (AUTOMATED) 2020-12-12 14:33:00 Harrison, Premal [facility]UM 2020-12-12 08:58:00 Paul Bean Sivakumar [facility] BASIC METABOLIC PANEL 2020-12-12 08:58:00 Paul Bean [facility] (NA, K, CL, CO2, GLUCOSE, [place] [facility] BUN, CREATININE, CA) CBC WITH DIFF 2020-12-12 08:58:00 Paul Bean Sivakumar [facility] US ABDOMEN LIMITED 2020-12-12 06:32:26 Paul Bean Sivakumar [facility] POCT GLUCOSE (AUTOMATED) 2020-12-12 03:40:00 Harrison, Premal G Uni [facility] POCT GLUCOSE (AUTOMATED) 2020-12-12 00:06:00 Harrison, Premal G Uni [facility] XR HIPS 3 VW LEFT 2020-12-11 20:20:00 Darnell Beanaham Sivakumar [facility] HB ECG ROUTINE & RHYTHM 2020-12-11 20:04:06 Cailin Romo [facility] VITAMIN B6, PLASMA 2020-12-11 19:17:00 [facility] POCT GLUCOSE (AUTOMATED) 2020-12-11 19:06:00 Rene Harrison [facility] CREATINE KINASE 2020-12-11 18:22:00 Clarisse Hannon [facility] VITAMIN B12, LEVEL 2020-12-11 18:22:00 Paul Bean [facility] FOLATE 2020-12-11 18:22:00 Vikas [facility] THYROID STIMULATING 2020-12-11 18:22:00 Cailin Romo [facility] HORMONE [facility] PROCALCITONIN 2020-12-11 18:22:00 Vikas [facility] VITAMIN B1 (THIAMINE), 2020-12-11 18:22:00 Paul Bean Sivakumar [facility] WHOLE BLOOD [facility] HEAD WO CONTRAST 2020-12-11 14:07:35 Sweetie Stout [facility] URINALYSIS 2020-12-11 13:44:00 Singer [facility] URINE CULTURE 2020-12-11 13:44:00 [facility] COVID-19 (ID NOW RAPID 2020-12-11 12:31:00 Paco Lacey [facility] TESTING) [facility] LAB ONLY COVID 2020-12-11 12:31:00 Singer [facility] XR CHEST 1 VW 2020-12-11 12:07:24 Singer [facility] BLOOD CULTURE SCREEN 2020-12-11 12:02:00 Paco Lacey [facility] MAGNESIUM 2020-12-11 12:02:00 Paul Bean Sivakumar [facility] FERRITIN SERUM 2020-12-11 12:02:00 Darnell Beanaham Sivakumar [facility] COMP. METABOLIC PANEL 2020-12-11 12:02:00 Paco Lacey [facility] ([id number]) Medical Branch CBC WITH DIFF 2020-12-11 12:02:00 Singer [facility] LACTIC ACID WHOLE BLOOD 2020-12-11 12:02:00 Paco Lacey [facility] BLOOD CULTURE SCREEN 2020-12-11 11:42:00 Paco Lacey [facility] EMERGENCY SERVICES 2020-12-11 06:01:00 Doctor Tabitha, [facility] AGREEMENTS AND [place] [facility] AUTHORIZATIONS HOSPITAL ADMISSION 2020-12-11 06:01:00 Doctor Tabitha [facility] [place] [facility] HOME HEALTH - OTHER 2020-11-11 06:01:00 Doctor Tabitha [facility] [place] [facility] HEALTH - OTHER 2020-10-30 06:01:00 Doctor Tabitha [facility] Name [facility] EXTERNAL PROVIDER RECORDS 2020-09-01 06:01:00 Doctor Tabitha, [facility] Name [facility] POCT GLUCOSE (AUTOMATED) 2020-08-23 18:09:00 Kelly [facility] POCT GLUCOSE (AUTOMATED) 2020-08-23 14:14:00 Kelly [facility] MAGNESIUM 2020-08-23 11:18:00 [facility] BASIC METABOLIC PANEL 2020-08-23 11:18:00 [facility] (NA, K, CL, CO2, GLUCOSE, Medica l Branch BUN, CREATININE, CA) CBC WITH DIFF 2020-08-23 11:18:00 [facility] POCT GLUCOSE (AUTOMATED) 2020-08-23 10:21:00 [facility]) 2020-08-23 05:55:00 Kelly [place] versity [facility] POCT GLUCOSE (AUTOMATED) 2020-08-23 03:00:00 Kelly [place] versity [facility] POCT GLUCOSE (AUTOMATED) 2020-08-22 23:38:00 Kelly Washington Uni versity [facility] POCT GLUCOSE (AUTOMATED) 2020-08-22 19:04:00 [place], Kelly Uni [facility] POCT GLUCOSE (AUTOMATED) 2020-08-22 13:49:00 [facility] MAGNESIUM 2020-08-22 10:10:00 Rayma, [facility] HEPATIC FUNCTION PANEL 2020-08-22 10:10:00 Jill Aguila [facility] ([id number]) (ALB,T.PRO,BILI Medical Branch T,BU/BC,ALT,AST,ALK PHOS) BASIC METABOLIC PANEL 2020-08-22 10:10:00 Ramya, [facility] (NA, K, CL, CO2, GLUCOSE, Medica l Branch BUN, CREATININE, CA) LIPID PANEL (50072)(TOTAL 2020-08-22 10:10:00 Courtland, [facility] TRIGLYCERID[facility], HDL) CBC WITH DIFF 2020-08-22 10:10:00 [facility] POCT GLUCOSE (AUTOMATED) 2020-08-22 10:10:00 Kelly [facility] POCT GLUCOSE (AUTOMATED) 2020-08-22 07:13:00 Kelly [facility] POCT GLUCOSE (AUTOMATED) 2020-08-22 02:24:00 Kelly [facility] POCT GLUCOSE (AUTOMATED) 2020-08-21 23:40:00 Kelly [facility] POCT GLUCOSE (AUTOMATED) 2020-08-21 18:10:00 Kelly [facility] POCT GLUCOSE (AUTOMATED) 2020-08-21 13:39:00 Kelly [facility] ETHANOL 2020-08-21 12:35:00 Jos Quiroz [facility] ACTIVATED PARTIAL 2020-08-21 12:35:[address] [facility] THRMPLAS [facility] GALV ONLY - SYPHILIS 2020-08-21 12:35:00 Padmini Kelly [facility] IGG/IGM [facility] LACTATE DEHYDROGENASE 2020-08-21 10:09:00 Courtland, [facility] GALV/CLC ONLY - URINE 2020-08-21 10:09:00 Jos Quiroz [facility] DRUG (IMMUNOASSAY) - 4 ER Medica l Branch PANEL URINALYSIS 2020-08-21 10:09:00 Courtland, [facility] URINE CULTURE 2020-08-21 10:09:00 Courtland, [facility] PROCALCITONIN 2020-08-21 10:09:00 Courtland, [facility] POCT GLUCOSE (AUTOMATED) 2020-08-21 09:41:00 Kelly [facility] PROTHROMBIN TIME / INR 2020-08-21 08:32:00 Courtland, [facility] ACTIVATED PARTIAL 2020-08-21 08:32:00 Courtland, [facility] THRMPLAS [facility] C-REACTIVE PROTEIN 2020-08-21 08:31:00 Ramya, [facility] HEPATIC FUNCTION PANEL 2020-08-21 08:31:00 Courtland, [facility] ([id number]) (ALB,T.PRO,BILI Medical Branch T,BU/BC,ALT,AST,ALK PHOS) BASIC METABOLIC PANEL 2020-08-21 08:31:00 Courtland, [facility] (NA, K, CL, CO2, GLUCOSE, [facility] [place] BUN, CREATININE, CA) SEDIMENTATION RATE 2020-08-21 08:31:00 Courtland, [facility] CBC WITH DIFF 2020-08-21 08:31:00 Courtland, [facility] GLYCOSYLATED HEMOGLOBIN 2020-08-21 08:31:00 Ramya, [facility] (A1C) [facility] HIV 1/2 AG-AB WITH REFLEX 2020-08-21 08:31:00 Kelly [facility] (ID NOW RAPID 2020-08-21 08:20:00 Courtland, [facility] TESTING) Medical Branch LAB ONLY COVID 2020-08-21 08:20:00 Courtland, [facility] o f [facility] Encounters Start End Encounter Admission Attending Care Care Encounter Source Date/Time Date/Time Type Type Clinicians Facility Department ID 2020-08-21 Inpatient Shayy WASHINGTON [facility] KVNG [id number] Univers 01:07:00 KELLY cantu [facility] 2021-08-22 2021-08-22 Emergency X STOUTRUST ERT [id number] Univers 06:21:00 08:02:00 SWEETIE cantu [facility] 2021-08-22 2021-08-22 Emergency StoutRUST [id number] Univers 06:21:00 08:02:00 Sweetie OREN [id number] i ty of [place] [id number] [facility] 084 [place] 2021-08-09 2021-08-09 Outpatient ZAKI, [facility] [id number] [facility] 10:27:03 10:27:03 ADRIANA lopez of Medicin e 2020-12-28 2020-12-28 Telephone [facility] 1.2.840.114 [id number] 00:00:00 00:00:00 Calvin H PRIMARY [id number] CARE 4.2.7.2.686 PAVILLION [id number] 220 2020-12-28 2020-12-28 Telephone [facility] 1.2.840.114 [id number] Univers 00:00:00 00:00:00 Calvin H PRIMARY [id number] it y of C[place]2.[place].2.686 [place] [facility] [id number] Dc dical 220 Branch 2020-12-19 2020-12-19 Transition Tuan Peters 1.2.840.114 [id number] 00:00:00 00:00:00 of Care Ruchi Braswell [id number] [place] 4.2.7.2.686 [id number] 403 2020-12-19 2020-12-19 Transition Tuan Peters 1.2.840.114 [id number] Univers 00:00:00 00:00:00 of Care Ruchi Braswell [id number] it [place] of [place].7.2.[place] [id number] [facility] 403 Branch 2020-12-11 2020-12-17 [facility] Paco Lacey 1.2.840.1 [id number] 05:11:00 16:00:00 Encounter Rene Harrison [place] [id number] [facility] 4.2.7.2.686 [id number] [facility] 2020-12-11 2020-12-17 [facility] 1.2.840.1 [id number] [facility] 05:11:00 16:00:00 Encounter Rene Harrison [id number] [facility] 4.2.7.2.686 [place] [id number] [place] [id number] [place] 2020-12-11 2020-12-11 Emergency X RUST ERT [id number] Univers 05:11:00 05:11:00 [facility] 2020-11-16 2020-11-16 Emergency X [facility] ERT [id number] Univers 09:31:00 09:31:00 [facility] 2020-11-11 2020-11-11 Orders Doctor CUI 1.2.840.114 [id number] 00:00:00 00:00:00 Only Unassigned, MONIQUE [id number] [place] [facility] 4.2.7.2.686 [id number] 2020-11-11 2020-11-11 Orders Doctor CUI 1.2.840.114 [id number] Univers 00:00:00 00:00:00 Only Unassigned, MONIQUE [id number] ity of [place] [facility] 4.2.7.2.686 Jeff as [id number] [facility] 009 [place] 2020-11-07 2020-11-07 Telephone Wilder [facility] [id number] 00:00:00 00:00:00 Angi Tobin 350.1.13.10 [place] 4.2.7.2.686 Professio [id number] [address] 2020-11-07 2020-11-07 Telephone Hdz [facility] [id number] [facility] 00:00:00 00:00:00 Sendil DiegoWongHawaWong Tobin [id number] ity of [place].2.[place] Profess[place] [id number] [address] 2020-10-30 2020-10-30 Orders Doctor BASILIA 1.2.840.114 [id number] 00:00:00 00:00:00 Only Unassigned, MONIQUE 350.1.13.10 [facility] 4.2.7.2.686 [id number] [facility] 2020-10-30 2020-10-30 Orders Doctor CUI 1.2.840.114 [id number] Univers 00:00:00 00:00:00 Only Unassigned, MONIQUE 350.1.13.10 ity of [place] [facility] 4.2.7.2.686 Jeff as [id number] [address] 2020-09-26 2020-09-26 Telephone [facility] 1.2.840.114 [id number] 00:00:00 00:00:00 [facility] [id number] CLINICS [id number] [facility] 2020-09-26 2020-09-26 Telephone [facility] 1.2.840.114 [id number] Univers 00:00:00 00:00:00 [facility] 350.1.13.10 i ty of CLINICS [place]7.2.[place] [id number] [address] 2020-09-01 2020-09-01 Orders Doctor CUI 1.2.840.114 [id number] 00:00:00 00:00:00 Only Unassigned, MONIQUE 350.1.13.10 [facility] 4.2.7.2.686 [id number] 2020-09-01 2020-09-01 Orders Doctor BASILIA 1.2.840.114 [id number] Univers 00:00:00 00:00:00 Only Unassigned, MONIQUE 350.1.13.10 ity of [place] [facility] 4.2.7.2.686 Jeff as [id number] [facility] 009 Branch 2020-08-25 2020-08-25 Transition Tuan Peters 1.2.840.114 [id number] 00:00:00 00:00:00 of Care Ruchi Braswell 350.1.13.10 [place] 4.2.7.2.686 [id number] [facility] 2020-08-25 2020-08-25 Transition Tuan Peters 1.2.840.114 [id number] [facility] 00:00:00 00:00:00 of Care Ruchi Braswell 350.1.13.10 it y of [place] [id number] [address] 2020-08-21 2020-08-23 [facility] Ayleen 1.2.840.114 [id number] 01:07:00 18:35:00 Encounter Kelly Amaya 350.1.13.10 [facility] 4.2.7.2.686 [id number] [facility] 2020-08-21 2020-08-23 [facility]. 2.840.114 [id number] [facility] 01:07:00 18:35:00 Encounter Nicci Mukul Kika Monique 350.1.13. 10 ity [facility] 4.2.7.2.686 Jeff as [phone] [address] Results Test Description Test Time Test Comments Results Result Comments Source POCT GLUCOSE (AUTOMATED) 2020-12-17 15:43:35 Test Item Value Reference Range Interpretation Comme nts POCT GLU (test code = 9058506978) 129 mg/dL 70-110 H Lab Interpretation (test code = 58158-8) Abnormal [facility] METABOLIC PANEL (NA, K, CL, CO2, GLUCOSE, BUN, CREATININE, CA)2020-12-17 11:45:07 Test Item Value Reference Range Interpretation Comments NA (test code = 137 mmol/L 135-145 7217386997) K (test code = 3.5 mmol/L 3.5-5.0 9767988028) CL (test code = 103 mmol/L 98-108 2605374451) CO2 TOTAL (test code = 26 mmol/L 23-31 7855298574) AGAP (test code = 2-16 1255041430) BUN (test code = 11 mg/dL 7-23 7224901354) GLUCOSE (test code = 175 mg/dL 70-110 H 2431669671) CREATININE (test code = 0.62 mg/dL 0.60-1.25 4357574772) CALCIUM (test code = 9.0 mg/dL 8.6-10.6 3715275999) eGFR Calculation mL/min/1.73m2 (Non-) (test code = 0760190376) eGFR Calculation mL/min/1.73m2 () (test code = 3722700391) JAMES (test code = JAMES) Association of [...] tests). Lab Interpretation Abnormal (test code = 86619-5) [facility] WITH [id number] 11:07:27 Test Item Value Reference Range Interpretation [...] RDW-SD (test code = 45.2 fL 38.5-51.6 49766-5) RDW-CV (test code = 16.9 % 12.1-15.4 H 788-0) PLT (test code = See_Comment H [Automated 777-3) message] The sy stem which generated this result transmitted reference range : 150 - 328 10*3/ ?L. The reference r torito was not used to interpret this result as normal/abnormal . MPV (test code = 8.1 fL 9.8-13.0 L 10445-4) NRBC/100 WBC (test See_Comment [Automat ed code = 7759909249) message] The system which generated this result transmitted reference range : 0.0 - 10.0 /100 WBCs. The refer ence range was not u sed to interpret th is result as normal/abnormal . NRBC x10^3 (test code <0.01 See_Comment [Auto mated = 7699269766) message] The s ysteClassBadges which generated this result transmitted reference range : 10*3/?L. The reference range was not used to interpret this result as normal/abnormal . GRAN MAT (NEUT) % 72.8 % (test code = 770-8) IMM GRAN % (test code 0.60 % = 6547210921) LYMPH % (test code = 18.4 % 736-9) MONO % (test code = 5.7 % 5905-5) EOS % (test code = 1.8 % 713-8) BASO % (test code = 0.7 % 706-2) GRAN MAT x10^3(ANC) 8.23 10*3/uL 1.99-6.95 H (test code = 0906584047) IMM GRAN x10^3 (test 0.07 10*3/uL 0.00-0.06 H code = 6610714570) LYMPH x10^3 (test code 2.08 10*3/uL 1.09-3.23 = 731-0) MONO x10^3 (test code 0.65 10*3/uL 0.36-1.02 = 742-7) EOS x10^3 (test code = 0.20 10*3/uL 0.06-0.53 711-2) BASO x10^3 (test code 0.08 10*3/uL 0.01-0.09 = 704-7) Lab Interpretation Abnormal (test code = 38190-1) [facility] 06:03:38 Test Item Value Reference Range Interpretation Comments POCT GLU (test code = 0791323250) 75 mg/dL 70-110 Lab Interpretation (test code = Normal 40015-6) [facility], [id number] 00:01:00 Test Item Value Reference Range Interpretation Comments VIT B6 (test code = 13.1 nmol/L 20.0-125.0 L INTERPRE TIVE 30078-5) INFORMATION: Vi tamin B6 (Pyridoxal 5-Phosphate) Pyridoxal 5'-phosphate me asured in a specimen collected follo wing an 8-hour or overnight fast accurately clara cates vitamin B6 nutritional sta tus. Non-fasting spe cimen concentration reflects recent vitamin intake. This test was develo ped and its perform ance characteristics determined by [facility]. I t has not been cleare d or approved by the [place] Food and Drug Administration. This test was perfor med in a CLIA certifie d laboratory and is intended for cl inical purposes.Perfor med By: [employer] [place] [address] [id number] Director: Namrata Klein MD Lab Interpretation Abnormal (test code = 09390-2) [facility] TIBIA FIBULA 2 VW [id number] 23:57:09 Tricompartmental knee joint osteoarthrosis.XR TIBIA FIBULA [...] No acute fracture or dislocation.IMPRESSIONTricompartmental knee joint osteoarthrosis.[facility] GLUCOSE (AUTOMATED) 2020-12-16 23:27:00 Test Item Value Reference Range Interpretation Comments POCT GLU (test code = 3513616957) 114 mg/dL 70-110 H Lab Interpretation (test code = Abnormal 23572-0) [facility] GLUCOSE (AUTOMATED)2020-12-16 20:12:00 Test Item Value Reference Range Interpretation Comments POCT GLU (test code = 1319657719) 105 mg/dL 70-110 Lab Interpretation (test code = Normal 77747-8) [facility] GLUCOSE (AUTOMATED)2020-12-16 14:44:00 Test Item Value Reference Range Interpretation Comments POCT GLU (test code = 3302709076) 153 mg/dL 70-110 H Lab Interpretation (test code = Abnormal 23165-9) [facility] METABOLIC PANEL (NA, K, CL, CO2, GLUCOSE, BUN, CREATININE, CA)2020-12-16 14:23:00 Test Item Value Reference Range Interpretation Comments NA (test code = 138 mmol/L 135-145 0983033184) K (test code = 3.4 mmol/L 3.5-5.0 L 3968909155) CL (test code = 100 mmol/L 98-108 2952605793) CO2 TOTAL (test code = 31 mmol/L 23-31 0056257685) AGAP (test code = 2-16 0641373806) BUN (test code = 11 mg/dL 7-23 3968628998) GLUCOSE (test code = 162 mg/dL 70-110 H 6973043921) CREATININE (test code = 0.64 mg/dL 0.60-1.25 9514884649) CALCIUM (test code = 8.9 mg/dL 8.6-10.6 0574404739) eGFR Calculation mL/min/1.73m2 (Non-) (test code = 7253644137) eGFR Calculation mL/min/1.73m2 () (test code = 0608485051) JAMES (test code = JAMES) Association of [...] tests). Lab Interpretation Abnormal (test code = 46021-7) [facility] WITH [id number] 14:05:00 Test Item Value Reference Range Interpretation [...] RDW-SD (test code = 45.4 fL 38.5-51.6 22252-0) RDW-CV (test code = 17.0 % 12.1-15.4 H 788-0) PLT (test code = See_Comment H [Automated 777-3) message] The sy stem which generated this result transmitted reference range : 150 - 328 10*3/ ?L. The reference r torito was not used to interpret this result as normal/abnormal . MPV (test code = 8.0 fL 9.8-13.0 L 93901-8) NRBC/100 WBC (test See_Comment [Automat ed code = 4931683828) message] The system which generated this result transmitted reference range : 0.0 - 10.0 /100 WBCs. The refer ence range was not u sed to interpret th is result as normal/abnormal . NRBC x10^3 (test code <0.01 See_Comment [Auto mated = 5483947879) message] The s ystem which generated this result transmitted reference range : 10*3/?L. The reference range was not used to interpret this result as normal/abnormal . GRAN MAT (NEUT) % 70.0 % (test code = 770-8) IMM GRAN % (test code 0.70 % = 4540613421) LYMPH % (test code = 20.5 % 736-9) MONO % (test code = 7.1 % 5905-5) EOS % (test code = 1.0 % 713-8) BASO % (test code = 0.7 % 706-2) GRAN MAT x10^3(ANC) 9.44 10*3/uL 1.99-6.95 H (test code = 5266473909) IMM GRAN x10^3 (test 0.09 10*3/uL 0.00-0.06 H code = 6778651452) LYMPH x10^3 (test code 2.76 10*3/uL 1.09-3.23 = 731-0) MONO x10^3 (test code 0.96 10*3/uL 0.36-1.02 = 742-7) EOS x10^3 (test code = 0.13 10*3/uL 0.06-0.53 711-2) BASO x10^3 (test code 0.10 10*3/uL 0.01-0.09 H = 704-7) Lab Interpretation Abnormal (test code = 35515-6) [facility] - Peripheral # [id number] 13:01:00 Test Item Value Reference Range Interpretation Comments Blood Culture-Aerobic No organisms No growth Previo us (test code = 14789-5) isolated prelim inary verified result was Culture In Progress on 12/11/2020 at 100 1 CSTPrevious preliminary verified result was No growth a t 24 hours on 12/12/2020 at 070 1 CSTPrevious preliminary verified result was No growth a t 48 hours on 12/13/2020 at 070 1 CSTPrevious preliminary verified result was No growth a t 72 hours on 12/14/2020 at 070 1 [employer] TESTER Blood No organisms No growth Previous Culture-Anaerobic isolated preliminar y (test code = 26438-8) verifi ed result was Culture In Progress on 12/11/2020 at 100 1 CSTPrevious preliminary verified result was No growth a t 24 hours on 12/12/2020 at 070 1 CSTPrevious preliminary verified result was No growth a t 48 hours on 12/13/2020 at 070 1 CSTPrevious preliminary verified result was No growth a t 72 hours on 12/14/2020 at 070 1 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 Lab Interpretation Normal (test code = 17492-1) [facility] [id number] 13:01:00 Test Item Value Reference Range Interpretation Comments Blood Culture-Aerobic No organisms No growth Previo us (test code = 77303-3) isolated prelim inary verified result was Culture In Progress on 12/11/2020 at 100 1 CSTPrevious preliminary verified result was No growth a t 24 hours on 12/12/2020 at 070 1 CSTPrevious preliminary verified result was No growth a t 48 hours on 12/13/2020 at 070 1 CSTPrevious preliminary verified result was No growth a t 72 hours on 12/14/2020 at 070 1 SAND TESTER Blood No organisms No growth Previous Culture-Anaerobic isolated preliminar y (test code = 96825-3) verifi ed result was Culture In Progress on 12/11/2020 at 100 1 CSTPrevious preliminary verified result was No growth a t 24 hours on 12/12/2020 at 070 1 CSTPrevious preliminary verified result was No growth a t 48 hours on 12/13/2020 at 070 1 CSTPrevious preliminary verified result was No growth a t 72 hours on 12/14/2020 at 070 1 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 TESTER Lab Interpretation Normal (test code = 63247-8) [facility] GLUCOSE (AUTOMATED)2020-12-16 04:01:00 Test Item Value Reference Range Interpretation Comments POCT GLU (test code = 0934685646) 156 mg/dL 70-110 H Lab Interpretation (test code = Abnormal 82536-4) [facility] GLUCOSE (AUTOMATED)2020-12-16 00:24:00 Test Item Value Reference Range Interpretation Comments POCT GLU (test code = 5545264801) 115 mg/dL 70-110 H Lab Interpretation (test code = Abnormal 00414-7) [facility] CHEST PULMONARY [id number] 23:34:55No pulmonary emboli. No interval change in [...] of intra and extrahepatic biliary du ctal dilatation.[facility] GLUCOSE (AUTOMATED) 2020-12-15 19:28:00 Test Item Value Reference Range Interpretation Comments POCT GLU (test code = 3116824830) 140 mg/dL 70-110 H Lab Interpretation (test code = Abnormal 30906-5) [facility] 15:26:00 Test Item Value Reference Range Interpretation Comments MAGNESIUM (test code = 1134420276) 2.2 mg/dL 1.7-2.4 Lab Interpretation (test code = Normal 92531-5) [facility]2020-12-15 15:15:00 Test Item Value Reference Range Interpretation Comments POCT GLU (test code = 6954378270) 181 mg/dL 70-110 H Lab Interpretation (test code = Abnormal 56999-9) [facility] (NA, K, CL, CO2, GLUCOSE, BUN, CREATININE, CA)2020-12-15 13:07:00 Test Item Value Reference Range Interpretation Comments NA (test code = 136 mmol/L 135-145 5578641159) K (test code = 3.6 mmol/L 3.5-5.0 5197130144) CL (test code = 96 mmol/L 98-108 L 4379895791) CO2 TOTAL (test code = 29 mmol/L 23-31 1550975325) AGAP (test code = 2-16 0638541243) BUN (test code = 12 mg/dL 7-23 1555374190) GLUCOSE (test code = 183 mg/dL 70-110 H 5811138978) CREATININE (test code = 0.70 mg/dL 0.60-1.25 5502479177) CALCIUM (test code = 9.2 mg/dL 8.6-10.6 8842780624) eGFR Calculation mL/min/1.73m2 (Non-) (test code = 0618858896) eGFR Calculation mL/min/1.73m2 () (test code = 8506593250) JAMES (test code = JAMES) Association of [...] tests). Lab Interpretation Abnormal (test code = 92690-4) [facility] WITH [id number] 12:32:00 Test Item Value Reference Range Interpretation Comments WBC (test code = See_Comment H [Automated 7090-2) message] The system which generated this result transmit ronan reference range : 4.20 - 10.70 10*3/?L. The reference range was not used to interpret this result as normal/abnormal . RBC (test code = See_Comment H [Automated 179-8) message] The system which generated this result [...] RDW-SD (test code = 44.4 fL 38.5-51.6 72711-1) RDW-CV (test code = 17.7 % 12.1-15.4 H 788-0) PLT (test code = See_Comment H [Automated 777-3) message] The system which generated this result transmit ronan reference range : 150 - 328 10*3/ ?L. The reference range was not u sed to interpret th is result as normal/abnormal . MPV (test code = 8.1 fL 9.8-13.0 L 81124-7) NRBC/100 WBC (test See_Comment [Automat ed code = 9870128220) message] The system which generated this result transmit ronan reference range : 0.0 - 10.0 /100 WBCs. The reference range was not used to interpret this result as normal/abnormal . NRBC x10^3 (test code <0.01 See_Comment [Auto mated = 1956253467) message] The system which generated this result transmit ronan reference range : 10*3/?L. The reference range was not used to interpret this result as normal/abnormal . GRAN MAT (NEUT) % 74.5 % (test code = 770-8) IMM GRAN % (test code 0.70 % = 1597225874) LYMPH % (test code = 17.4 % 736-9) MONO % (test code = 6.8 % 5905-5) EOS % (test code = 0.2 % 713-8) BASO % (test code = 0.4 % 706-2) GRAN MAT x10^3(ANC) 11.99 10*3/uL 1.99-6.95 H (test code = 4960835665) IMM GRAN x10^3 (test 0.11 10*3/uL 0.00-0.06 H code = 9464263313) LYMPH x10^3 (test code 2.80 10*3/uL 1.09-3.23 = 731-0) MONO x10^3 (test code 1.10 10*3/uL 0.36-1.02 H = 742-7) EOS x10^3 (test code = 0.03 10*3/uL 0.06-0.53 L 711-2) BASO x10^3 (test code 0.06 10*3/uL 0.01-0.09 = 704-7) Lab Interpretation Abnormal (test code = 83251-9) [facility] GLUCOSE (AUTOMATED)2020-12-15 04:16:00 Test Item Value Reference Range Interpretation Comments POCT GLU (test code = 9994730207) 200 mg/dL 70-110 H Lab Interpretation (test code = Abnormal 29358-6) [facility]IT[facility] (THIAMINE), WHOLE [id number] 00:30:00 Test Item Value Reference Range Interpretation Comments Vitamin B1, Whole 136 nmol/L 70-180 INTERPRETI VE INFORMATION: Blood (test code = Vitamin B 1, Whole Blood 62457-9) This assay júnior ures the concentration o f thiamine diphosphate (TD P), the primary active form of vitamin B1. Nick roximately 90 percent of v itamin B1 present in whol e blood is TDP. Thiamine a nd thiamine monoph osphate, which comprise the remaining 10 pe rcent, are not measured. T his test was developed a nd its performance characteristics determined by [facility]. I t has not been cleared or approved by the [place] Food and Drug Administration. This test was performed i n a CLIA certified labor atory and is intended for clinical purposes.Perfor med By: [facility] [place] [address] [id number] aboratory Director: Namrata Klein MD [facility] GLUCOSE (AUTOMATED)2020-12-14 23:35:00 Test Item Value Reference Range Interpretation Comments POCT GLU (test code = 4687976841) 151 mg/dL 70-110 H Lab Interpretation (test code = Abnormal 07627-7) [facility] GLUCOSE (AUTOMATED)2020-12-14 19:19:00 Test Item Value Reference Range Interpretation Comments POCT GLU (test code = 8591684872) 193 mg/dL 70-110 H Lab Interpretation (test code = Abnormal 83962-1) [facility] GLUCOSE (AUTOMATED)2020-12-14 15:22:00 Test Item Value Reference Range Interpretation Comments POCT GLU (test code = 2345920578) 221 mg/dL 70-110 H Lab Interpretation (test code = Abnormal 41880-0) [facility] GLUCOSE (AUTOMATED)2020-12-14 02:37:00 Test Item Value Reference Range Interpretation Comments POCT GLU (test code = 2418125165) 210 mg/dL 70-110 H Lab Interpretation (test code = Abnormal 81793-6) [facility] GLUCOSE (AUTOMATED)2020-12-13 23:33:00 Test Item Value Reference Range Interpretation Comments POCT GLU (test code = 2742072354) 182 mg/dL 70-110 H Lab Interpretation (test code = Abnormal 95152-5) [facility] GLUCOSE (AUTOMATED)2020-12-13 18:09:00 Test Item Value Reference Range Interpretation Comments POCT GLU (test code = 3586902631) 150 mg/dL 70-110 H Lab Interpretation (test code = Abnormal 32235-3) [facility] METABOLIC PANEL (NA, K, CL, CO2, GLUCOSE, BUN, CREATININE, CA)2020-12-13 16:27:00 Test Item Value Reference Range Interpretation Comments NA (test code = 136 mmol/L 135-145 1577523550) K (test code = 3.7 mmol/L 3.5-5.0 3563540270) CL (test code = 96 mmol/L 98-108 L 0602233920) CO2 TOTAL (test code = 29 mmol/L 23-31 5638739786) AGAP (test code = 2-16 4624276356) BUN (test code = 6 mg/dL 7-23 L 3103747644) GLUCOSE (test code = 212 mg/dL 70-110 H 9562830107) CREATININE (test code = 0.61 mg/dL 0.60-1.25 8865246245) CALCIUM (test code = 9.5 mg/dL 8.6-10.6 6158274802) eGFR Calculation mL/min/1.73m2 (Non-) (test code = 7211728605) eGFR Calculation mL/min/1.73m2 () (test code = 9341425891) JAMES (test code = JAMES) Association of [...] tests). Lab Interpretation Abnormal (test code = 90226-2) [facility] WITH [id number] 16:10:00 Test Item Value Reference Range Interpretation Comments WBC (test code = See_Comment H [Automated 1990-2) message] The sy stem which generated this result transmitted reference range : 4.20 - 10.70 10*3/?L. The reference range was not used to interpret this result as normal/abnormal . RBC (test code = See_Comment H [Automated 999-8) message] The sy stem which generated this [...] RDW-SD (test code = 43.3 fL 38.5-51.6 09091-8) RDW-CV (test code = 16.2 % 12.1-15.4 H 788-0) PLT (test code = See_Comment H [Automated 777-3) message] The sy stem which generated this result transmitted reference range : 150 - 328 10*3/ ?L. The reference r torito was not used to interpret this result as normal/abnormal . MPV (test code = 8.2 fL 9.8-13.0 L 24785-4) NRBC/100 WBC (test See_Comment [Automat ed code = 9360415137) message] The system which generated this result transmitted reference range : 0.0 - 10.0 /100 WBCs. The refer ence range was not u sed to interpret th is result as normal/abnormal . NRBC x10^3 (test code <0.01 See_Comment [Auto mated = 1543215713) message] The s ystem which generated this result transmitted reference range : 10*3/?L. The reference range was not used to interpret this result as normal/abnormal . GRAN MAT (NEUT) % 86.2 % (test code = 770-8) IMM GRAN % (test code 0.70 % = 4992952945) LYMPH % (test code = 10.2 % 736-9) MONO % (test code = 2.5 % 5905-5) EOS % (test code = 0.1 % 713-8) BASO % (test code = 0.3 % 706-2) GRAN MAT x10^3(ANC) 9.61 10*3/uL 1.99-6.95 H (test code = 0112269000) IMM GRAN x10^3 (test 0.08 10*3/uL 0.00-0.06 H code = 3033961890) LYMPH x10^3 (test code 1.14 10*3/uL 1.09-3.23 = 731-0) MONO x10^3 (test code 0.28 10*3/uL 0.36-1.02 L = 742-7) EOS x10^3 (test code = <0.03 0.06-0.53 L 711-2) BASO x10^3 (test code 0.03 10*3/uL 0.01-0.09 = 704-7) Lab Interpretation Abnormal (test code = 49015-3) [facility]2020-12-13 14:16:00 Test Item Value Reference Range Interpretation Comments POCT GLU (test code = 2553101696) 236 mg/dL 70-110 H Lab Interpretation (test code = Abnormal 72383-8) [facility] COVID [id number] 04:58:00COVID DMT InterpretationInterpretation/Recommendations: Molecular NAAT Tests for [...] [facility] LABORATORY SERVICESCOVID Resu rhtNZZL-WkA-5 Rapid ID NOW (no units) ? ? Date ? Value ? 12/11/2020 ? Not Detected ? ? ? 11/16/2020 ? Not Detected ? ? ? 08/21/2020 ?Not Detected ? [facility]Un[facility] 2020-12-13 03:11:00 Test Item Value Reference Range Interpretation Comments POCT GLU (test code = 6871111021) 171 mg/dL 70-110 H Lab Interpretation (test code = Abnormal 25190-5) [facility] GLUCOSE (AUTOMATED)2020-12-13 00:00:00 Test Item Value Reference Range Interpretation Comments POCT GLU (test code = 7023497216) 118 mg/dL 70-110 H Lab Interpretation (test code = Abnormal 47792-0) [facility] GLUCOSE (AUTOMATED)2020-12-12 20:29:00 Test Item Value Reference Range Interpretation Comments POCT GLU (test code = 1798177777) 173 mg/dL 70-110 H Lab Interpretation (test code = Abnormal 59547-7) [facility] Hospital[facility]BDOMEN [id number] 19:56:17 1. ?Hepatic steatosis. However, limited evaluation [...] main portal veinwasevaluated with color Doppler imaging. Elevator Worker images were obtainedfor the record. COMPARISON: Ultrasound [...] normal where visualized. SPLEEN:No images were obtained. [facility], Radiant Results Inft User - 12/12/2020 1:57 PM CSTEXAM: US ABDOMEN LIMITEDHISTORY: 70 years-old male with RUQ ultrasound to assess for common bileduct dilation .TECHNIQUE: Limited abdominal ultrasound focused on the liver, biliarysystem, pancreas, and spleen was performed. The main portal vein wasevaluated with color Doppler imaging. Elevator Worker images were obtainedfor the record.COMPARISON: Ultrasound abdomen [...] this study and agree with the abovereport. [facility]2020-12-12 19:24:00 Test Item Value Reference Range Interpretation Comments POCT GLU (test code = 7316829146) 230 mg/dL 70-110 H Lab Interpretation (test code = Abnormal 79978-5) [facility] CHEST 1 [id number] 15:16:46 Low lung volumes with mild perihilar [...] have reviewed thisstudy and agree with theabove report.[facility]2020-12-12 14:34:00 Test Item Value Reference Range Interpretation Comments POCT GLU (test code = 4647252417) 225 mg/dL 70-110 H Lab Interpretation (test code = Abnormal 32089-0) [facility] HospitalURINE [id number] 13:28:00 Test Item Value Reference Range Interpretation Comments URINE CULTURE (test < 10,000 CFU/mL mixed code = 630-4) aerobic organisms - suggests endogenous microbial contamination [facility] (NA, K, CL, CO2, GLUCOSE, BUN, CREATININE, CA)2020-12-12 10:05:00 Test Item Value Reference Range Interpretation Comments NA (test code = 136 mmol/L 135-145 0572120270) K (test code = 3.5 mmol/L 3.5-5.0 8199125825) CL (test code = 100 mmol/L 98-108 1988353375) CO2 TOTAL (test code = 31 mmol/L 23-31 5293292438) AGAP (test code = 2-16 4525485460) BUN (test code = 7 mg/dL 7-23 4663877861) GLUCOSE (test code = 259 mg/dL 70-110 H 0564180919) CREATININE (test code = 0.63 mg/dL 0.60-1.25 5183040366) CALCIUM (test code = 8.5 mg/dL 8.6-10.6 L 7425669310) eGFR Calculation mL/min/1.73m2 (Non-) (test code = 4340037267) eGFR Calculation mL/min/1.73m2 () (test code = 6189264158) JAMES (test code = JAMES) Association of [...] tests). Lab Interpretation Abnormal (test code = 82995-5) [facility] HospitalMagnesium [id number] 10:05:00 Test Item Value Reference Range Interpretation Comments MAGNESIUM (test code = 8556048283) 1.9 mg/dL 1.7-2.4 Lab Interpretation (test code = Normal 65486-2) [facility] with [id number] 09:48:00 Test Item Value Reference Range Interpretation Comments WBC (test code = See_Comment [Automated 5322-2) message] The sy stem which generated this result transmitted reference range : 4.20 - 10.70 10*3/?L. The reference range was not used to interpret this result as normal/abnormal . RBC (test code = See_Comment [Automated 787-8) message] The sy stem which generated this [...] RDW-SD (test code = 46.0 fL 38.5-51.6 61284-2) RDW-CV (test code = 16.1 % 12.1-15.4 H 788-0) PLT (test code = See_Comment H [Automated 777-3) message] The sy stem which generated this result transmitted reference range : 150 - 328 10*3/ ?L. The reference r torito was not used to interpret this result as normal/abnormal . MPV (test code = 8.6 fL 9.8-13.0 L 69259-1) NRBC/100 WBC (test See_Comment [Automat ed code = 0381519603) message] The system which generated this result transmitted reference range : 0.0 - 10.0 /100 WBCs. The refer ence range was not u sed to interpret th is result as normal/abnormal . NRBC x10^3 (test code <0.01 See_Comment [Auto mated = 7978727769) message] The s ystem which generated this result transmitted reference range : 10*3/?L. The reference range was not used to interpret this result as normal/abnormal . GRAN MAT (NEUT) % 70.2 % (test code = 770-8) IMM GRAN % (test code 0.30 % = 6917861981) LYMPH % (test code = 18.8 % 736-9) MONO % (test code = 5.0 % 5905-5) EOS % (test code = 5.2 % 713-8) BASO % (test code = 0.5 % 706-2) GRAN MAT x10^3(ANC) 6.05 10*3/uL 1.99-6.95 (test code = 9416163104) IMM GRAN x10^3 (test 0.03 10*3/uL 0.00-0.06 code = 6449505845) LYMPH x10^3 (test code 1.62 10*3/uL 1.09-3.23 = 731-0) MONO x10^3 (test code 0.43 10*3/uL 0.36-1.02 = 742-7) EOS x10^3 (test code = 0.45 10*3/uL 0.06-0.53 711-2) BASO x10^3 (test code 0.04 10*3/uL 0.01-0.09 = 704-7) Lab Interpretation Abnormal (test code = 83402-0) [facility] GLUCOSE (AUTOMATED)2020-12-12 03:42:00 Test Item Value Reference Range Interpretation Comments POCT GLU (test code = 196 mg/dL 70-110 H Notifi ed Provider [id number]) Lab Interpretation (test Abnormal code = 33311-9) [facility] HospitalFOLATE2021-[facility] 02:24:00 Test Item Value Reference Range Interpretation Comments FOLATE SER (test code = 3591507789) 5.8 ng/mL 3.0-20.0 Lab Interpretation (test code = Normal 67746-3) [facility] HospitalVITAMIN B12, [id number] 00:55:00 Test Item Value Reference Range Interpretation Comments VIT B12 (test code = 844 pg/mL 240-930 7011593546) JAMES (test code = JAMES) Biotin has been reported to cause a positive bias, interpret results relative to patient's use of biotin. Lab Interpretation (test Normal code = 39986-1) [facility] GLUCOSE (AUTOMATED)2020-12-12 00:14:00 Test Item Value Reference Range Interpretation Comments POCT GLU (test code = 9915480306) 164 mg/dL 70-110 H Lab Interpretation (test code = Abnormal 58930-1) [facility]CREAT[facility] [id number] 23:42:00 Test Item Value Reference Range Interpretation Comments CK (test code = 0228057781) <20 33-194 L Lab Interpretation (test code = Abnormal 26731-7) [facility] HospitalTHYROID STIMULATING [id number] 23:17:00 Test Item Value Reference Range Interpretation Comments TSH (test code = See_Comment Biotin has been [id number]) reported to cau se a negative bias, interpret resul ts relative to pat ient's use of biotin. [Automated mess age] The system [employer] generated this result transmitted ref erence range: 0.45 - 4 .70 mIU/L. The refe rence range was not u sed to interpret this result as normal/abnor mal. Lab Interpretation (test Normal code = 26003-5) [facility] HospitalXR HIPS 3 VW [id number] 21:41:53No appreciable fracture lines. RL: 6200 ICAL [...] (test 0.13 ng/mL <0.07 H code = 9977688959) JAMES (test code = JAMES) INTERPRETATION OF [...] lung abscess/empyema. For further information please refer to:[email or web address] Lab Interpretation Abnormal (test code = 07031-1) [facility]ATED)2020-12-11 19:07:00 Test Item Value Reference Range Interpretation Comments POCT GLU (test code = 5167848545) 274 mg/dL 70-110 H Lab Interpretation (test code = Abnormal 98019-5) [facility] HospitalMAGNESIUM2021-03-01 18:31:00 Test Item Value Reference Range Interpretation Comments MAGNESIUM (test code = 9634197524) 1.9 mg/dL 1.7-2.4 Lab Interpretation (test code = Normal 05463-1) [facility] HospitalFERRITIN [id number] 18:31:00 Test Item Value Reference Range Interpretation Comments FERRITIN (test code = 178.0 ng/mL 18.0-464.0 7492035524) JAMES (test code = JAMES) Biotin has been reported to cause a negative bias, interpret results relative to patient's use of biotin. Lab Interpretation (test Normal code = 86262-3) [facility] HospitalCT HEAD WO [id number] 14:36:47 No acute intracranial abnormality. Dilated ventricles [...] reviewed this study and agree with the abovereport.[facility]URINALYSIS2021-03-01 14:28:00 Test Item Value Reference Range Interpretation Comments APPEARANCE (test code = Clear Clear 3732609392) COLOR (test code = Yellow Yellow 4662089761) PH (test code = 4.8-8.0 0589810951) SP GRAVITY (test code = 1.003-1.030 1176410021) GLU U QUAL (test code = 500 mg/dL Normal A 6345293200) BLOOD (test code = Negative Negative 2976441789) KETONES (test code = 5 mg/dL Negative A 6164260033) PROTEIN (test code = Negative Negative 2887-8) UROBILIN (test code = Normal Normal 3406892491) BILIRUBIN (test code = Negative Negative 0841685273) NITRITE (test code = Negative Negative 0361843276) LEUK RYAN (test code = Negative Negative 3205375492) RBC/HPF (test code = See_Comment [Autom ated message] 0253529137) The system [employer] generated this result transmit ronan reference range : 0 - 3 HPF. The refe rence range was not u sed to interpret th is result as normal/abnormal . WBC/HPF (test code = See_Comment [Autom ated message] 4390379914) The system [employer] generated this result transmit ronan reference range : 0 - 5 HPF. The refe rence range was not u sed to interpret th is result as normal/abnormal . BACTERIA (test code = Negative Negative 0773362924) MUCOUS (test code = Slight Negative LPF A 6616927060) SQ EPITH (test code = HPF 6671037474) Lab Interpretation (test Abnormal code = 51168-4) [facility] HospitalCOVID-19 (ID NOW RAPID TESTING)2020-12-11 13:10:00 Test Item Value Reference Range Interpretation Comments SARS-CoV-2 Rapid ID NOW Not Detected Not Detected (test code = 09425-1) JAMES (test code = JAMES) ID NOW COVID-19 Assay is an isothermal nucleic acid amplification test intended for the qualitative detection of nucleic acid from SARS-CoV-2 viral RNA in nasopharyngeal (BAD WORK GATHERER) specimens. It is used under Emergency Use [...] indicated. Lab Interpretation Normal (test code = 05446-3) [facility]. METABOLIC PANEL (49284)2020-12-11 12:29:00 Test Item Value Reference Range Interpretation Comments NA (test code = 136 mmol/L 135-145 7422893800) K (test code = 3.5 mmol/L 3.5-5.0 9952871583) CL (test code = 95 mmol/L 98-108 L 0409726490) CO2 TOTAL (test code = 35 mmol/L 23-31 H 4530684603) AGAP (test code = 2-16 2321834589) BUN (test code = 9 mg/dL 7-23 1125120978) GLUCOSE (test code = 329 mg/dL 70-110 H 4172204317) CREATININE (test code = 0.72 mg/dL 0.60-1.25 6010181347) TOTAL BILI (test code = 0.6 mg/dL 0.1-1.2 9243679388) CALCIUM (test code = 9.0 mg/dL 8.6-10.6 6722628762) T PROTEIN (test code = 6.8 g/dL 6.3-8.2 0804975451) ALBUMIN (test code = 3.8 g/dL 3.5-5.0 0430100211) ALK PHOS (test code = 288 U/L 34-122 H 2038795799) ALTv (test code = 46 U/L 5-50 2-6) AST(SGOT) (test code = 38 U/L 13-40 1922571213) eGFR Calculation mL/min/1.73m2 (Non-) (test code = 9391156092) eGFR Calculation mL/min/1.73m2 () (test code = 2391542474) JAMES (test code = JAMES) Association of [...] tests). Lab Interpretation Abnormal (test code = 93980-6) [facility] HospitalLactic Acid Whole [id number] 12:23:00 Test Item Value Reference Range Interpretation Comments LACTIC ACID (test code = 2.09 mmol/L 0.50-2.20 6784085241) Lab Interpretation (test code = Normal 73354-8) [facility] HospitalCB WITH [id number] 12:17:00 Test Item Value Reference Range Interpretation [...] RDW-SD (test code = 44.9 fL 38.5-51.6 16799-5) RDW-CV (test code = 15.9 % 12.1-15.4 H 788-0) PLT (test code = See_Comment H [Automated 777-3) message] The sy stem which generated this result transmitted reference range : 150 - 328 10*3/ ?L. The reference r torito was not used to interpret this result as normal/abnormal . MPV (test code = 8.3 fL 9.8-13.0 L 20062-7) NRBC/100 WBC (test See_Comment [Automat ed code = 8003557086) message] The system which generated this result transmitted reference range : 0.0 - 10.0 /100 WBCs. The refer ence range was not u sed to interpret th is result as normal/abnormal . NRBC x10^3 (test code <0.01 See_Comment [Auto mated = 9436485575) message] The s ystem which generated this result transmitted reference range : 10*3/?L. The reference range was not used to interpret this result as normal/abnormal . GRAN MAT (NEUT) % 77.9 % (test code = 770-8) IMM GRAN % (test code 0.50 % = 8619264195) LYMPH % (test code = 12.2 % 736-9) MONO % (test code = 5.2 % 5905-5) EOS % (test code = 3.7 % 713-8) BASO % (test code = 0.5 % 706-2) GRAN MAT x10^3(ANC) 9.57 10*3/uL 1.99-6.95 H (test code = 0725333201) IMM GRAN x10^3 (test 0.06 10*3/uL 0.00-0.06 code = 1621853929) LYMPH x10^3 (test code 1.50 10*3/uL 1.09-3.23 = 731-0) MONO x10^3 (test code 0.64 10*3/uL 0.36-1.02 = 742-7) EOS x10^3 (test code = 0.46 10*3/uL 0.06-0.53 711-2) BASO x10^3 (test code 0.06 10*3/uL 0.01-0.09 = 704-7) Lab Interpretation Abnormal (test code = 04287-1) [facility] HospitalLAB ONLY COVID [id number] 18:43:00COVID DMT InterpretationInterpretation/Recommendations: Molecular NAAT Test Results [...] a nasopharyngeal sample, there is approximately a [id number]-kbnfe chance that the patient was infected and [...] based upon aggregate data pooled from the [facility] medical record including both current and prior COVID-19 related testing results for the following tests offered at our institution:A. Tests for the Identification of SARS-CoV-2 RNA:SARS-CoV-2 PCR assays including [place] Aptima, [place] Fusion, Barrett RealTime, and TrackaPhone Xpert Xpress. SARS-CoV-2 Rapid ID NOW by the ID NOW assay. ? B. Tests for the Identification of SARS-CoV-2 Antibodies: Chemiluminescent immunoassays including Access SARS-CoV-2 IgM (DXI 600), Printed PieceS Wzgc-DPOP-CvR-2 IgG (Vitros 5600 and Vitros 3600), and Barrett SARS-CoV-2 IgG (INVESTIGATION [employer]UTENA[employer] I System). These interpretation comments assume that only the above testing was utilized and that the approved acceptable specimen type(s) were used for a given test. These interpretations are autopopulated into [employer] based on computerized algorithms matching an interpretation [...] setting. [facility] LABORATORY SERVICESCOVID ZopenzpYIRY-HeC-8 Rapid ID NOW (no units) ? ? Date ? Value ? 08/21/2020 ? Not Detected ? [facility] SERVICESUnJeff[facility]2020-08-23 18:25:00 Test Item Value Reference Range Interpretation Comments POCT GLU (test code = 5945289939) 297 mg/dL 70-110 H Lab Interpretation (test code = Abnormal 37262-5) [facility] GLUCOSE (AUTOMATED)2020-08-23 14:25:00 Test Item Value Reference Range Interpretation Comments POCT GLU (test code = 7830634045) 181 mg/dL 70-110 H Lab Interpretation (test code = Abnormal 63212-4) [facility] HospitalBasic Metabolic Panel (NA, K, CL, CO2, GLUCOSE, BUN, CREATININE, CA)2020-08-23 11:45:00 Test Item Value Reference Range Interpretation Comments NA (test code = 132 mmol/L 135-145 L 4273390842) K (test code = 4.0 mmol/L 3.5-5 8359221260) CL (test code = 96 mmol/L 98-108 L 8955016790) CO2 TOTAL (test code = 33 mmol/L 23-31 H 5621100015) AGAP (test code = 2-16 6587419458) BUN (test code = 9 mg/dL 7-23 6197511530) GLUCOSE (test code = 176 mg/dL 70-110 H 3858873240) CREATININE (test code = 0.66 mg/dL 0.6-1.25 7925006462) CALCIUM (test code = 8.5 mg/dL 8.6-10.6 L 4826615374) eGFR Calculation mL/min/1.73m2 (Non-) (test code = 6738165461) eGFR Calculation mL/min/1.73m2 () (test code = 6625456420) JAMES (test code = JAMES) Association of [...] tests). Lab Interpretation Abnormal (test code = 06240-3) [facility] HospitalMagnesium [id number] 11:45:00 Test Item Value Reference Range Interpretation Comments MAGNESIUM (test code = 1110989066) 2.0 mg/dL 1.7-2.4 Lab Interpretation (test code = Normal 72058-8) [facility] HospitalCB with [id number] 11:38:00 Test Item Value Reference Range Interpretation [...] RDW-SD (test code = 41.8 fL 38.5-51.6 81235-9) RDW-CV (test code = 14.3 % 12.1-15.4 788-0) PLT (test code = See_Comment H [Automated 777-3) message] The sy stem which generated this result transmitted reference range : 150 - 328 10*3/ ?L. The reference r torito was not used to interpret this result as normal/abnormal . MPV (test code = 8.0 fL 9.8-13 L 81842-2) NRBC/100 WBC (test See_Comment [Automat ed code = 8613901980) message] The system which generated this result transmitted reference range : 0.0 - 10.0 /100 WBCs. The refer ence range was not u sed to interpret th is result as normal/abnormal . NRBC x10^3 (test code <0.01 See_Comment [Auto mated = 1011783811) message] The s ystem which generated this result transmitted reference range : 10*3/?L. The reference range was not used to interpret this result as normal/abnormal . GRAN MAT (NEUT) % 61.5 % (test code = 770-8) IMM GRAN % (test code 2.00 % = 1648836498) LYMPH % (test code = 25.5 % 736-9) MONO % (test code = 6.3 % 5905-5) EOS % (test code = 3.7 % 713-8) BASO % (test code = 1.0 % 706-2) GRAN MAT x10^3(ANC) 5.29 10*3/uL 1.99-6.95 (test code = 9554226261) IMM GRAN x10^3 (test 0.17 10*3/uL 0-0.06 H code = 4351531790) LYMPH x10^3 (test code 2.19 10*3/uL 1.09-3.23 = 731-0) MONO x10^3 (test code 0.54 10*3/uL 0.36-1.02 = 742-7) EOS x10^3 (test code = 0.32 10*3/uL 0.06-0.53 711-2) BASO x10^3 (test code 0.09 10*3/uL 0.01-0.09 = 704-7) Lab Interpretation Abnormal (test code = 17169-4) [facility] GLUCOSE (AUTOMATED)2020-08-23 10:22:00 Test Item Value Reference Range Interpretation Comments POCT GLU (test code = 8724606299) 164 mg/dL 70-110 H Lab Interpretation (test code = Abnormal 72945-4) [facility] GLUCOSE (AUTOMATED)2020-08-23 05:56:00 Test Item Value Reference Range Interpretation Comments POCT GLU (test code = 1750084601) 242 mg/dL 70-110 H Lab Interpretation (test code = Abnormal 52958-1) [facility] GLUCOSE (AUTOMATED)2020-08-23 03:02:00 Test Item Value Reference Range Interpretation Comments POCT GLU (test code = 9181961992) 210 mg/dL 70-110 H Lab Interpretation (test code = Abnormal 76385-5) [facility] GLUCOSE (AUTOMATED)2020-08-22 23:40:00 Test Item Value Reference Range Interpretation Comments POCT GLU (test code = 4252619385) 267 mg/dL 70-110 H Lab Interpretation (test code = Abnormal 00047-1) [facility] GLUCOSE (AUTOMATED)2020-08-22 19:08:00 Test Item Value Reference Range Interpretation Comments POCT GLU (test code = 0360640863) 191 mg/dL 70-110 H Lab Interpretation (test code = Abnormal 23152-0) [facility] GLUCOSE (AUTOMATED)2020-08-22 13:50:00 Test Item Value Reference Range Interpretation Comments POCT GLU (test code = 5980746303) 174 mg/dL 70-110 H Lab Interpretation (test code = Abnormal 65834-9) [facility] HospitalURINE [id number] 12:59:00 Test Item Value Reference Range Interpretation Comments URINE CULTURE (test No aerobic growth (< code = 630-4) 1000 CFU/mL) [facility] with Fdpumlntaghw4004-87-49 11:28:00 Test Item Value Reference Range Interpretation Comments WBC (test code = See_Comment [Automated 6690-2) message] The sy stem which generated this result transmitted reference range : 4.20 - 10.70 10*3/?L. The reference range was not used to interpret this result as normal/abnormal . RBC (test code = See_Comment L [Automated 819-8) message] The sy stem which generated this [...] RDW-SD (test code = 42.5 fL 38.5-51.6 54304-3) RDW-CV (test code = 14.5 % 12.1-15.4 788-0) PLT (test code = See_Comment H [Automated 777-3) message] The sy stem which generated this result transmitted reference range : 150 - 328 10*3/ ?L. The reference r torito was not used to interpret this result as normal/abnormal . MPV (test code = 8.0 fL 9.8-13 L 56953-2) NRBC/100 WBC (test See_Comment [Automat ed code = 4017809275) message] The system which generated this result transmitted reference range : 0.0 - 10.0 /100 WBCs. The refer ence range was not u sed to interpret th is result as normal/abnormal . NRBC x10^3 (test code <0.01 See_Comment [Auto mated = 4839933875) message] The s ystem which generated this result transmitted reference range : 10*3/?L. The reference range was not used to interpret this result as normal/abnormal . GRAN MAT (NEUT) % 69.1 % (test code = 770-8) IMM GRAN % (test code 2.20 % = 0526775040) LYMPH % (test code = 20.9 % 736-9) MONO % (test code = 5.8 % 5905-5) EOS % (test code = 1.0 % 713-8) BASO % (test code = 1.0 % 706-2) GRAN MAT x10^3(ANC) 6.51 10*3/uL 1.99-6.95 (test code = 0108931076) IMM GRAN x10^3 (test 0.21 10*3/uL 0-0.06 H code = 0303889141) LYMPH x10^3 (test code 1.97 10*3/uL 1.09-3.23 = 731-0) MONO x10^3 (test code 0.55 10*3/uL 0.36-1.02 = 742-7) EOS x10^3 (test code = 0.09 10*3/uL 0.06-0.53 711-2) BASO x10^3 (test code 0.09 10*3/uL 0.01-0.09 = 704-7) BASO STIPPLING (test Present A code = 703-9) BANDS (test code = Increased A 5202856721) TOXIC CHANGES (test Present A code = 803-7) Lab Interpretation Abnormal (test code = 98118-3) [facility] Metabolic Panel (NA, K, CL, CO2, GLUCOSE, BUN, CREATININE, CA)2020-08-22 11:12:00 Test Item Value Reference Range Interpretation Comments NA (test code = 135 mmol/L 135-145 4998285594) K (test code = 3.6 mmol/L 3.5-5 5163645796) CL (test code = 99 mmol/L 98-108 3965254862) CO2 TOTAL (test code = 31 mmol/L 23-31 9653883575) AGAP (test code = 2-16 7509796243) BUN (test code = 9 mg/dL 7-23 5839871641) GLUCOSE (test code = 198 mg/dL 70-110 H 9119179435) CREATININE (test code = 0.72 mg/dL 0.6-1.25 1847283875) CALCIUM (test code = 8.3 mg/dL 8.6-10.6 L 2624405563) eGFR Calculation mL/min/1.73m2 (Non-) (test code = 1389012336) eGFR Calculation mL/min/1.73m2 () (test code = 0227601409) JAMES (test code = JAMES) Association of [...] tests). Lab Interpretation Abnormal (test code = 82768-3) [facility] HospitalMagnesium [id number] 11:12:00 Test Item Value Reference Range Interpretation Comments MAGNESIUM (test code = 3157806608) 2.0 mg/dL 1.7-2.4 Lab Interpretation (test code = Normal 75262-5) [facility] HospitalLipid Panel (Total Cholesterol, Triglycerides, HDL) - Cdczezn2729-06-81 11:12:00 Test Item Value Reference Range Interpretation Comments CHOL (test code = 155 mg/dL 120-200 4560972411) HDL (test code = 42 mg/dL >40 9526708545) HDLC RATIO (test code = See_Comment [Au tomated message] 6904819927) The system [employer] generated this result transmit ronan reference range : <=5.0. The refe rence range was not u sed to interpret th is result as normal/abnormal . TRIG (test code = 186 mg/dL 30-170 H 5701570476) LDL CHOL (test code = 76 mg/dL See_Comment [Auto mated message] 19857-5) The system [employer] generated this result transmit ronan reference range : <=160. The refe rence range was not u sed to interpret th is result as normal/abnormal . VLDL (test code = 37 mg/dL 5-60 4989616318) Lab Interpretation (test Abnormal code = 49504-2) [facility] HospitalHEPATIC FUNCTION PANEL (52401) (ALB,T.PRO,BILI T,BU/BC,ALT,AST,ALK PHOS)2020-08-22 11:12:00 Test Item Value Reference Range Interpretation Comments TOTAL BILI (test code = 4181861193) 0.6 mg/dL 0.1-1.1 BILI UNCON (test code = 3427786551) 0.2 mg/dL 0.1-1.1 BILI CONJ (test code = 7016505373) 0.0 mg/dL 0-0.3 T PROTEIN (test code = 6692077552) 6.0 g/dL 6.3-8.2 L ALBUMIN (test code = 6304252778) 2.8 g/dL 3.5-5 L ALK PHOS (test code = 2332602535) 222 U/L 34-122 H ALTv (test code = 1742-6) 27 U/L 5-50 AST(SGOT) (test code = 4013107880) 30 U/L 13-40 Lab Interpretation (test code = Abnormal 34224-9) [facility] GLUCOSE (AUTOMATED)2020-08-22 10:11:00 Test Item Value Reference Range Interpretation Comments POCT GLU (test code = 2731281485) 196 mg/dL 70-110 H Lab Interpretation (test code = Abnormal 05475-6) [facility] GLUCOSE (AUTOMATED)2020-08-22 07:15:00 Test Item Value Reference Range Interpretation Comments POCT GLU (test code = 1966792709) 183 mg/dL 70-110 H Lab Interpretation (test code = Abnormal 62628-5) [facility] GLUCOSE (AUTOMATED)2020-08-22 02:30:00 Test Item Value Reference Range Interpretation Comments POCT GLU (test code = 2620741288) 295 mg/dL 70-110 H Lab Interpretation (test code = Abnormal 59299-3) [facility] GLUCOSE (AUTOMATED)2020-08-21 23:46:00 Test Item Value Reference Range Interpretation Comments POCT GLU (test code = 4562191835) 258 mg/dL 70-110 H Lab Interpretation (test code = Abnormal 27274-8) [facility] HospitalC-REACTIVE [id number] 18:50:00 Test Item Value Reference Range Interpretation Comments CRP (test code = 9776683865) 15.5 mg/dL <0.8 H Lab Interpretation (test code = Abnormal 82789-2) [facility])2020-08-21 18:21:00 Test Item Value Reference Range Interpretation Comments POCT GLU (test code = 8808237025) 297 mg/dL 70-110 H Lab Interpretation (test code = Abnormal 09452-0) [facility] HospitalETHANOL2020-11-09 16:24:00 Test Item Value Reference Range Interpretation Comments ALCOHOL (test code = <10 mg/dL 9201934474) JAMES (test code = Toxic Greater than or JAMES) equal to 80 mg/dL. NOTE: Whole blood values are approximately 10% to 15% lower than serum and plasma. [facility] HospitalGAL/CLC ONLY - URINE DRUG (IMMUNOASSAY) - 4 ER [id number] 15:36:00 Test Item Value Reference Range Interpretation Comments AMPHET (test code = Negative Negative 4960759326) Cocaine Metabolite (test Negative Negative code = 6203117948) OPIATES (test code = Presumptive Positive Negative A 9038173108) THC (test code = Negative Negative 3901272279) JAMES (test code = JAMES) Urine Drug Cutoff Ranges Amphetamine: ? 1,000 ng/mLCocaine: ? 150 ng/mLOpiates: ? 300 ng/mLCannabinoids: ?50 ng/mL The results are to be used only for medical (i.e., treatment) purposes. Unconfirmed screening results must not be used for non-medical purposes (e.g., employment testing, legal testing). Lab Interpretation (test Abnormal code = 13697-2) [facility] ONLY - SYPHILIS [id number] 15:04:00 Test Item Value Reference Range Interpretation Comments Syphilis IgG/IgM (test Non-reactive Non-reactive code = 79817-1) JAMES (test code = JAMES) Non-reactive - No serologic evidence of T. pallidum infection. Cannot exclude incubating or early syphilis. Submit a second specimen in 2-4 weeks if syphilis is clinically suspected. Equivocal - Further testing to follow. Reactive - Further testing to follow. Lab Interpretation (test Normal code = 20042-5) [facility] HospitalUrinalysis2020-11-09 14:52:00 Test Item Value Reference Range Interpretation Comments APPEARANCE (test code = Clear Clear 3371229710) COLOR (test code = Yellow Yellow 8178779464) PH (test code = 4.8-8.0 3375359104) SP GRAVITY (test code = 1.003-1.030 5826451001) GLU U QUAL (test code = 500 mg/dL Normal A 1528322893) BLOOD (test code = Negative Negative 3702344583) KETONES (test code = 20 mg/dL Negative A 5766747380) PROTEIN (test code = Negative Negative 2887-8) UROBILIN (test code = Normal Normal 3972322287) BILIRUBIN (test code = Negative Negative 6943962590) NITRITE (test code = Negative Negative 8849849782) LEUK RYAN (test code = Negative Negative 5556167329) RBC/HPF (test code = <1 See_Comment [Autom ated message] 9961238474) The system [employer] generated this result transmit ronan reference range : 0 - 3 HPF. The refe rence range was not u sed to interpret th is result as normal/abnormal . WBC/HPF (test code = See_Comment [Autom ated message] 7647912386) The system [employer] generated this result transmit ronan reference range : 0 - 5 HPF. The refe rence range was not u sed to interpret th is result as normal/abnormal . BACTERIA (test code = Negative Negative 9155610446) MUCOUS (test code = Slight Negative LPF A 9286966535) Lab Interpretation (test Abnormal code = 55762-6) [facility] HospitalACTIVATED PARTIAL THRMPLAS [id number] 13:45:00 Test Item Value Reference Range Interpretation Comments APTT Patient (test code = See_Comment [ Automated message] 3173-2) The system [employer] generated this result transmitted ref erence range: 26 - 36 Seconds. The re ference range was not u sed to interpret this result as normal/abnor mal. Lab Interpretation (test Normal code = 81252-2) [facility] HospitalPOCT [facility]SE (AUT[facility]ATED)2020-08-21 13:45:00 Test Item Value Reference Range Interpretation Comments POCT GLU (test code = 4423119772) 246 mg/dL 70-110 H Lab Interpretation (test code = Abnormal 23822-8) [facility] HospitalHIV 1/2 AG-AB WITH [id number] 12:32:00 Test Item Value Reference Range Interpretation Comments HIV Negative Negative Semi-quantitative (test code = 86119-0) JAMES (test code = Non-reactive for HIV-1 JAMES) antigen and HIV-1/HIV-2 antibodies. ?No laboratory evidence of HIV infection. ?Repeat in 2-4 weeks if acute HIV infection is suspected. [facility] WITH [id number] 12:18:00 Test Item Value Reference Range Interpretation Comments WBC (test code = See_Comment [Automated 0490-2) message] The sy stem which generated this [...] RDW-SD (test code = 44.4 fL 38.5-51.6 84669-9) RDW-CV (test code = 14.5 % 12.1-15.4 788-0) PLT (test code = See_Comment H [Automated 777-3) message] The sy stem which generated this result transmitted reference range : 150 - 328 10*3/ ?L. The reference r torito was not used to interpret this result as normal/abnormal . MPV (test code = 8.5 fL 9.8-13 L 44836-3) NRBC/100 WBC (test See_Comment [Automat ed code = 6470351941) message] The system which generated this result transmitted reference range : 0.0 - 10.0 /100 WBCs. The refer ence range was not u sed to interpret th is result as normal/abnormal . NRBC x10^3 (test code <0.01 See_Comment [Auto mated = 7022896057) message] The s ystem which generated this result transmitted reference range : 10*3/?L. The reference range was not used to interpret this result as normal/abnormal . GRAN MAT (NEUT) % 90.4 % (test code = 770-8) IMM GRAN % (test code 1.30 % = 8003363150) LYMPH % (test code = 7.1 % 736-9) MONO % (test code = 0.5 % 5905-5) EOS % (test code = 0.1 % 713-8) BASO % (test code = 0.6 % 706-2) GRAN MAT x10^3(ANC) 7.74 10*3/uL 1.99-6.95 H (test code = 0952385063) IMM GRAN x10^3 (test 0.11 10*3/uL 0-0.06 H code = 9980255693) LYMPH x10^3 (test code 0.61 10*3/uL 1.09-3.23 L = 731-0) MONO x10^3 (test code 0.04 10*3/uL 0.36-1.02 L = 742-7) EOS x10^3 (test code = <0.03 0.06-0.53 L 711-2) BASO x10^3 (test code 0.05 10*3/uL 0.01-0.09 = 704-7) POLYCHROMASIA (test 2+ See_Comment [Automa ronan code = 67547-0) message] The system which generated this result transmitted reference range : 2+. The referen ce range was not u sed to interpret th is result as normal/abnormal . BANDS (test code = Increased A 9895564712) Lab Interpretation Abnormal (test code = 76126-4) [facility] 11:48:00 Test Item Value Reference Range Interpretation Comments Procalcitonin (test 0.36 ng/mL <0.07 H code = 6573591340) JAMES (test code = JAMES) INTERPRETATION OF [...] lung abscess/empyema. For further information please refer to:[email or web address] Lab Interpretation Abnormal (test code = 80418-5) [facility] HospitalLAWAATE [id number] 10:53:00 Test Item Value Reference Range Interpretation Comments LDH (test code = 8309136420) 351 U/L 300-600 Lab Interpretation (test code = Normal 17802-2) [facility] HospitalSEDIMENTATION [id number] 10:07:00 Test Item Value Reference Range Interpretation Comments ESR (test code = See_Comment H [Automated message] 6009263564) The system [employer] generated this result transmitted ref erence range: 0 - 10 m m/HR. The reference r torito was not used to interpret this result as normal/abnor mal. Lab Interpretation (test Abnormal code = 53888-4) [facility] GLUCOSE (AUTOMATED)2020-08-21 09:45:00 Test Item Value Reference Range Interpretation Comments POCT GLU (test code = 4584624607) 287 mg/dL 70-110 H Lab Interpretation (test code = Abnormal 84854-0) [facility] HospitalGlycosylated Hemoglobin (A1C)2020-08-21 09:29:00 Test Item Value Reference Range Interpretation Comments HGB A1C (test code = 4548-4) 9.8 % 4-6 H Lab Interpretation (test code = Abnormal 41684-8) [facility]COVID-19 (ID NOW RAPID TESTING)2020-08-21 09:13:00 Test Item Value Reference Range Interpretation Comments SARS-CoV-2 Rapid ID NOW Not Detected Not Detected (test code = 53986-6) JAMES (test code = JAMES) ID NOW COVID-19 Assay is an isothermal nucleic acid amplification test intended for the qualitative detection of nucleic acid from SARS-CoV-2 viral RNA in nasopharyngeal (BAD WORK GATHERER) specimens. It is used under Emergency Use [...] indicated. Lab Interpretation Normal (test code = 47370-4) [facility] HospitalProthrombin Time / [id number] 08:59:00 Test Item Value Reference Range Interpretation Comments PROTIME PATIENT (test See_Comment H [Auto mated message] code = 5964-2) The system [employer] generated this result transmitted ref erence range: 10.1 - 1 2.6 Seconds. The reference range was not used to int erpret this result as normal/abnormal . INR (test code = 6301-6) Nor mal INR <1.1; Warfarin Therap eutic range 2.0 to 3. 0 or 2.5 to 3.5, dep ending upon the indica tions. Lab Interpretation (test Abnormal code = 78600-0) [facility] HospitalaPTT2020-11-09 08:59:00 Test Item Value Reference Range Interpretation Comments APTT Patient (test code = See_Comment [ Automated message] 3173-2) The system [employer] generated this result transmitted ref erence range: 26 - 36 Seconds. The re ference range was not u sed to interpret this result as normal/abnor mal. Lab Interpretation (test Normal code = 74726-1) [facility] HospitalBASI METABOLIC PANEL (NA, K, CL, CO2, GLUCOSE, BUN, CREATININE, CA)2020-08-21 08:52:00 Test Item Value Reference Range Interpretation Comments NA (test code = 136 mmol/L 135-145 9589867870) K (test code = 4.3 mmol/L 3.5-5 9708289379) CL (test code = 104 mmol/L 98-108 5847790844) CO2 TOTAL (test code = 24 mmol/L 23-31 5398477590) AGAP (test code = 2-16 7048262754) BUN (test code = 8 mg/dL 7-23 8898877800) GLUCOSE (test code = 308 mg/dL 70-110 H 1175722199) CREATININE (test code = 0.72 mg/dL 0.6-1.25 5188871022) CALCIUM (test code = 7.8 mg/dL 8.6-10.6 L 1342334437) eGFR Calculation mL/min/1.73m2 (Non-) (test code = 3770275267) eGFR Calculation mL/min/1.73m2 () (test code = 1449028686) JAMES (test code = JAMES) Association of [...] tests). Lab Interpretation Abnormal (test code = 51914-0) [facility] HospitalHEPATIC FUNCTION PANEL (93782) (ALB,T.PRO,BILI T,BU/BC,ALT,AST,ALK PHOS)2020-08-21 08:52:00 Test Item Value Reference Range Interpretation Comments TOTAL BILI (test code = 9583272678) 0.8 mg/dL 0.1-1.1 BILI UNCON (test code = 2266469859) 0.3 mg/dL 0.1-1.1 BILI CONJ (test code = 6332122777) 0.0 mg/dL 0-0.3 T PROTEIN (test code = 9772789414) 5.7 g/dL 6.3-8.2 L ALBUMIN (test code = 4597083596) 2.7 g/dL 3.5-5 L ALK PHOS (test code = 8135163770) 245 U/L 34-122 H ALTv (test code = 1742-6) 37 U/L 5-50 AST(SGOT) (test code = 5549510547) 43 U/L 13-40 H Lab Interpretation (test code = Abnormal 95703-6) [facility]
[2021-11-15] MEDS ORDERED: HYDROCODONE/APAP 10/325 TAB ONE (06:21)
--- NOTE | 2021-11-15 06:27 | EDPHYS ---
Physician Documentation [facility] Name: Kiel Ngo Age: 71 yrs Sex: Male : 1950 Arrival Date: 11/15/2021 Time: 06:12 Bed 19 Private MD: ED Physician Shankar Lange HPI: 11/15 06:14 This 71 yrs old Male presents to ER via Unassigned with complaints of Leg Pain. kb 06:14 The patient presents with pain, that is chronic. The complaints affect the right leg kb and left leg. Context: resulted from a chronic condition. Onset: The symptoms/episode began/occurred 2006. Modifying factors: The symptoms are alleviated by nothing. the symptoms are aggravated by nothing. Associated signs and symptoms: The patient has no apparent associated signs or symptoms. Treatment prior to arrival includes: no previous treatment. Severity of symptoms: At their worst the symptoms were moderate, in the emergency department the symptoms are unchanged. The patient has experienced similar episodes in the past, chronically. The patient has been recently seen by a physician:. Pt reports chronic leg pain that started in 2006. States he couldn't get comfortable last night so he came in today. States he was getting in and out of a car yesterday and pushing with his legs to do so.. Historical: - Allergies: 06:15 Demerol; sf1 06:15 metformin; sf1 06:15 Morphine; sf1 - PMHx: 06:15 chronic back pain; sf1 - PSHx: 06:15 back sx; sf1 - Immunization history:: Flu vaccine is not up to date. - Social history:: Smoking status: Patient denies any tobacco usage or history of. Patient/guardian denies using alcohol, street drugs. ROS: 06:14 Constitutional: Negative for fever, chills, and weight loss. kb 06:14 MS/extremity: Positive for pain, of the right leg and left leg. 06:14 All other systems are negative. Exam: 06:14 Constitutional: This is a well developed, well nourished patient who is awake, alert, kb and in no acute distress. Head/Face: Normocephalic, atraumatic. ENT: Moist Mucous membranes Respiratory: Respirations even and unlabored. No increased work of breathing. Talking in full sentences Skin: Warm, dry with normal turgor. Normal color. MS/ Extremity: Pulses equal, no cyanosis. Neurovascular intact. Full, normal range of motion. Neuro: Awake and alert, GCS 15, oriented to person, place, time, and situation. Moves all extremities. Normal gait. Psych: Awake, alert, with orientation to person, place and time. Behavior, mood, and affect are within normal limits. Vital Signs: 06:12 BP 136 / 54; Pulse 90; Resp 20; Temp 97.9; Pulse Ox 99% on R/A; Weight 88.45 kg; Height sf1 5 ft. 11 in. (180.34 cm); Pain 10/10; 06:12 Body Mass Index 27.20 (88.45 kg, 180.34 cm) sf1 MDM: 06:14 Patient medically screened. kb 06:14 Data reviewed: vital signs, nurses notes. Data interpreted: Pulse oximetry: on room air kb is 100 %. Interpretation: normal. Counseling: I had a detailed discussion with the patient and/or guardian regarding: the historical points, exam findings, and any diagnostic results supporting the discharge/admit diagnosis, the need for outpatient follow up, a family practitioner, to return to the emergency department if symptoms worsen or persist or if there are any questions or concerns that arise at home. ED course: Pt does not want any diagnostic tests. States he needs some pain medicine and a muscle relaxer. . 06:37 ED course: Pt reports he is unable to get into a wheelchair or bear weight. States he kb has to go home via ambulance. Looked through history and pt has gone home via ambulance in the past. . Administered Medications: 06:21 Drug: [place] (HYDROcodone-acetaminophen) 10 mg-325 mg 1 tabs Route: PO; sf1 06:28 Drug: Robaxin (methocarbamol) 500 mg Route: PO; sf1 Disposition: 07:21 Co-signature as Attending Physician, Shankar Lange MD. pkl Disposition Summary: 11/15/21 06:26 Discharge Ordered Location: Home kb Condition: Stable kb Diagnosis - Chronic pain syndrome - bilateral legs kb Followup: kb - With: Emergency Department - When: As needed - Reason: Worsening of condition Followup: kb - With: Private Physician - When: 2 - 3 days - Reason: Recheck today's complaints, Continuance of care, Re-evaluation by your physician Discharge Instructions: - Discharge Summary Sheet kb - Chronic Pain, Adult kb Forms: - Medication Reconciliation Form kb - Thank You Letter kb - Antibiotic Education kb - Prescription Opioid Use kb Prescriptions: - Cyclobenzaprine 10 mg Oral Tablet - take 1 tablet by ORAL route every 8 hours As needed; 21 tablet; Refills: 0, kb Product Selection Permitted - Diclofenac Sodium 75 mg Oral tablet,delayed release (DR/EC) - take 1 tablet by ORAL route 2 times per day As needed; 30 tablet; Refills: 0, kb Product Selection Permitted Signatures: Vera Lee, ROYER PICHARDO-Shankar Finch MD MD pkl Larisa Giles RN RN sf1 Corrections: (The following items were deleted from the chart) 06:33 06:14 Constitutional: This is a well developed, well nourished patient who is awake, kb alert, and in no acute distress. Head/Face: Normocephalic, atraumatic. ENT: Moist Mucous membranes Respiratory: Respirations even and unlabored. No increased work of breathing. Talking in full sentences Skin: Warm, dry with normal turgor. Normal color. MS/ Extremity: Pulses equal, no cyanosis. Neurovascular intact. Full, normal range of motion. Neuro: Awake and alert, GCS 15, oriented to person, place, time, and situation. Moves all extremities. Normal gait. Psych: Awake, alert, with orientation to person, place and time. Behavior, mood, and affect are within normal limits. kb
--- NOTE | 2021-11-15 06:27 | ER ---
Nurse's Notes [facility] Name: Kiel Ngo Age: 71 yrs Sex: Male : 1950 Arrival Date: 11/15/2021 Time: 06:12 Bed 19 Private MD: Diagnosis: Chronic pain syndrome-bilateral legs Presentation: 11/15 06:12 Chief complaint: EMS states: bilateral leg pain starting at the hip down and rash on sf1 the back. Coronavirus screen: Vaccine status: Patient reports being unvaccinated. Client denies travel out of the [place] in the last 14 days. Ebola Screen: Patient negative for fever greater than or equal to 101.5 degrees Fahrenheit, and additional compatible Ebola Virus Disease symptoms Patient denies exposure to infectious person. Patient denies travel to an Ebola-affected area in the 21 days before illness onset. Initial Sepsis Screen: Does the patient meet any 2 criteria? No. Patient's initial sepsis screen is negative. Does the patient have a suspected source of infection? No. Patient's initial sepsis screen is negative. Risk Assessment: Do you want to hurt yourself or someone else? Patient reports no desire to harm self or others. Onset of symptoms was November 15, 2021. 06:12 Method Of Arrival: EMS: [facility] sf1 06:12 Acuity: JOZEF 4 sf1 Triage Assessment: 06:15 General: Appears in no apparent distress. Behavior is calm, cooperative, appropriate sf1 for age. Pain: Complains of pain in right leg and left leg Pain currently is 10 out of 10 on a pain scale. Historical: - Allergies: 06:15 Demerol; sf1 06:15 metformin; sf1 06:15 Morphine; sf1 - PMHx: 06:15 chronic back pain; sf1 - PSHx: 06:15 back sx; sf1 - Immunization history:: Flu vaccine is not up to date. - Social history:: Smoking status: Patient denies any tobacco usage or history of. Patient/guardian denies using alcohol, street drugs. Screenin:43 Abuse screen: Denies threats or abuse. Nutritional screening: No deficits noted. sf1 Tuberculosis screening: No symptoms or risk factors identified. Fall Risk None identified. Assessment: 06:43 Derm: stage 1 pressure ulcer to mid back. sf1 Vital Signs: 06:12 BP 136 / 54; Pulse 90; Resp 20; Temp 97.9; Pulse Ox 99% on R/A; Weight 88.45 kg; Height sf1 5 ft. 11 in. (180.34 cm); Pain 10/10; 06:12 Body Mass Index 27.20 (88.45 kg, 180.34 cm) sf1 ED Course: 06:12 Patient arrived in ED. 06:12 Larisa Giles RN is Primary Nurse. sf1 06:13 Vera Lee FNP-C is PHCP. kb 06:14 Shankar Lange MD is Attending Physician. kb 06:15 Triage completed. sf1 06:15 Arm band placed on right wrist. sf1 06:43 Patient has correct armband on for positive identification. sf1 06:43 No provider procedures requiring assistance completed. Patient did not have IV access sf1 during this emergency room visit. Administered Medications: 06:21 Drug: [place] (HYDROcodone-acetaminophen) 10 mg-325 mg 1 tabs Route: PO; sf1 06:28 Drug: Robaxin (methocarbamol) 500 mg Route: PO; sf1 Outcome: 06:26 Discharge ordered by . kb 06:43 Discharged to home via ambulance. sf1 06:43 Condition: good 06:43 Discharge instructions given to patient, Instructed on discharge instructions, follow up and referral plans. Demonstrated understanding of instructions, follow-up care. 07:16 Patient left the ED. vg1 Signatures: Vera Lee FNP-C FNP-Ckb Garcia, Victoria, RN RN vg1 Myranda Robles Larisa Giles RN RN sf1
[2021-11-15] MEDS ORDERED: methocarbamoL 500 MG TAB ONE (06:29)
[2021-11-15 07:20] VITALS: BP 136/54; TEMP 97.9; O2SAT 99
== END 2021-11-15 07:16 | disposition home or self-care (01) ==
LOC: ER 06:11
DX: G89.4 Chronic pain syndrome (principal); Z88.5 Allergy status to narcotic agent; Z88.8 Allergy status to other drugs, medicaments and biological substances
CPT/HCPCS: 99283

== ENCOUNTER 2021-11-16 06:35 | Emergency (ER) | payer OTHER ==
--- OUTSIDE RECORDS SUMMARY | 2021-11-16 06:43 | XMS REPORT | Continuity of Care Document ---
:1950 Author Organization [facility] t Address [address] [place] [address] Dr. Motley [address] [place] [id number] Care Team Providers Name Role Phone Edy [...] Expiration Date S ource MEDICARE PART A [id number] 2007 \\T\\ B 00:00:00 [employer] INDEMNITY [id number] 2016 00:00:00 MEDICARE PART A [id number] 2014 \\T\\ B - MEDICARE 00:00:00 INDEMNITY/TRADITIO [id number] NAL CHOICE - [employer] 00:00:00 Problems Condition [...] ents Source Name Type Date Date Clinician Stephens Propensi Active Rash 2020- Univers ty to [...] vers NE INGREDI 3-16 ity of 00:00: [place] 00 [facility] Branch GLIMEPIR DRUG Active Hives Univers EFREN INGREDI 3-16 ity of 00:00: [place] 00 Medical Branch METFORMI DRUG Active ITCHING Univers N INGREDI 3-16 ity of 00:00: [place] 00 Medical Branch Social History Social Habit Start Date Stop Date Quantity Comments Source Exposure to Not sure University of SARS-CoV-2 [facility] [place] [facility] (event) Branch History of Chews Tobacco University of tobacco use [facility] History ALOH 2020-11-17 2020-11-17 5 University o f Financial 00:00:00 00:00:00 [facility] History [facility] Food 2020-11-17 2020-11-17 1 Univers ity of Worry 00:00:00 00:00:00 [facility] History [facility] Food 2020-11-17 2020-11-17 1 Univers ity of Scarcity 00:00:00 00:00:00 [facility] History [facility] 2020-11-17 2020-11-17 1 University o f Transport Med 00:00:00 00:00:00 [place] Medic al Branch History [facility] 2020-11-17 2020-11-17 1 University o f Transport Non-Med 00:00:00 00:00:00 [facility] edical Branch Education 2020-11-16 2020-11-16 21 [place] of 00:00:00 00:00:00 [facility] Alcohol intake 2020-11-16 2020-11-16 Ex-drinker [place] of 00:00:00 00:00:00 (finding) [facility] Tobacco use and 2020-08-21 2020-08-21 Former user Universi ty of exposure 00:00:00 00:00:00 [facility] Tobacco Comment 2020-08-21 2020-08-21 quit 10 years Univer sity of 00:00:00 00:00:00 ago, started in [place] Med ical 2nd year of Branch college (~40 years) Alcohol Comment 2020-08-21 2020-08-21 Used to have 2-3 Uni versity of 00:00:00 00:00:00 six-packs of [place] Medica l beer daily x 20 Branch years, quit 2005 History [facility] 2020-08-21 2020-08-21 99 University o f Alcohol Frequency 00:00:00 00:00:00 [place] M edical Branch History SDHI 2020-08-21 2020-08-21 99 [place] o f Alcohol Std 00:00:00 00:00:00 [place] Medical Drinks Branch History SDHI 2020-08-21 2020-08-21 99 University o f Alcohol Binge 00:00:00 00:00:00 [place] Medic al Branch Sex [birth year] Universit y of 00:00:00 00:00:00 [facility] Smoking Status Start Date Stop Date Source Never smoker [facility] Medications Ordered Filled Start Stop Current [...] 0845, Until Discontinu ed, Routine amLODIPine Yes [id number] 10mg Take 1 Univers 10 mg 3-07 tablet by ity of tablet 00:00: mouth [place] 00 daily. Medical Branch clotrimazol Yes [id number] Apply to Univers e 1 % 3-07 face/ears, ity of topical 00:00: armpits, [place] cream 00 pannus and Medical back/any Branch other rash twice a day fluocinonid 0 Yes [id number] Apply to Univers e 0.05 % 3-07 scalp ity of solution 00:00: twice a [place] 00 day Medical Branch triamcinolo 0 Yes [id number] Apply to Univers ne 3-07 back, ity of acetonide 00:00: armpits [place] 0.1 % cream 00 and other Med ical affected Branch areas twice daily, please mix with clotrimazo le hydrOXYzine 0 Yes [id number] 10mg Take 1 Univers 10 mg 3-07 tablet by ity of tablet 00:00: mouth 2 (two) Medical times Branch daily. amLODIPine 2020-0 Yes [id number] 10mg Take 1 Univers 10 mg 3-07 tablet by ity of tablet 00:00: mouth 00 daily. Medical Branch clotrimazol 2020-0 Yes [id number] Apply to Univers e 1 % 3-07 face/ears, ity of topical 00:00: armpits, [place] cream 00 pannus and Medical back/any Branch other rash twice a day fluocinonid 0 Yes [id number] Apply to Univers e 0.05 % 3-07 scalp ity of solution 00:00: twice a day Medical Branch triamcinolo 0 Yes [id number] Apply to Univers ne 3-07 back, ity of acetonide 00:00: armpits [place] 0.1 % cream 00 and other Med ical affected Branch areas twice daily, please mix with clotrimazo le hydrOXYzine 0 Yes [id number] 10mg Take 1 Univers 10 mg 3-07 tablet by ity of tablet 00:00: mouth 2 (two) Medical times Branch daily. amLODIPine Yes [id number] 10mg Take 1 Univers 10 mg 3-07 tablet by ity of tablet 00:00: mouth 00 daily. Medical Branch clotrimazol 0 Yes [id number] Apply to Univers e 1 % 3-07 face/ears, ity of topical 00:00: armpits, [place] cream 00 pannus and Medical back/any Branch other rash twice a day fluocinonid 2020-0 Yes [id number] Apply to Univers e 0.05 % 3-07 scalp ity of solution 00:00: twice a [place] 00 day Medical Branch triamcinolo 2020-0 Yes [id number] Apply to Univers ne 3-07 back, ity of acetonide 00:00: armpits [place] 0.1 % cream 00 and other Med ical affected Branch areas twice daily, please mix with clotrimazo le hydrOXYzine Yes [id number] 10mg Take 1 Univers 10 mg 3-07 tablet by ity of tablet 00:00: mouth 2 [place] 00 (two) Medical times Branch daily. amLODIPine Yes [id number] 10mg Take 1 Univers 10 mg 3-07 tablet by ity of tablet 00:00: mouth [place] 00 daily. Medical Branch clotrimazol Yes [id number] Apply to Univers e 1 % 3-07 face/ears, ity of topical 00:00: armpits, [place] cream 00 pannus and Medical back/any Branch other rash twice a day fluocinonid Yes [id number] Apply to Univers e 0.05 % 307 scalp ity of solution 00:00: twice a [place] 00 day Medical Branch triamcinolo Yes [id number] Apply to Univers ne 3-07 back, ity of acetonide 00:00: armpits [place] 0.1 % cream 00 and other Med ical affected Branch areas twice daily, please mix with clotrimazo le hydrOXYzine Yes [id number] 10mg Take 1 Univers 10 mg 3-07 tablet by ity of tablet 00:00: mouth 2 [place] 00 (two) Medical times Branch daily. cephALEXin 2020-2020- No [id number] 500mg Take 1 Univers 500 mg 3-04 14-11 capsule by ity of capsule 00:00: 05:59 mouth [place] 00 :00 every 6 Medical (six) Branch hours for 3 days. cephALEXin 2020-0 2020- No [id number] 500mg Take 1 Univers 500 mg 3-04 14-11 capsule by ity of capsule 00:00: 05:59 mouth [place] 00 :00 every 6 Medical (six) Branch hours for 3 days. hydrOXYzine 2020-2020- No [id number] 10mg Take 1 Univers 10 mg 3- [...] IV [place] 500 mL 00 :00 Piggyback, [facility] ONCE, 1 Branch dose, Fri12/15/20 at 1000, STAT HYDROmorpho Yes 4mg 4 mg, Unive ne 12-15 Oral, BID, ity of (DILAUDID) 15:30: First dose [place] tablet 4 mg 00 (after Medica l last Branch modificati on) on Fri12/15/20 at 0930, Until Discontinu ed, Routine amLODIPine 2020- No [id number] 10mg Take 1 Univers 10 mg 12-15 tablet by ity of tablet 00:00: 00:00 mouth [place] 00 :00 daily. Medical Branch HYDROmorpho No 1mg 1 mg, Univ ers ne 12-14 Oral, ity of (DILAUDID) 17:35: 15:18 Q6HPRN, [place] tablet 1 mg 30 :06 Starting Medi [facility] 12/14/20 Branch at 1135, Until Fri12/15/20 at 0918, Routine, Pain (scale 7-10) hydrOXYzine Yes 10mg 10 mg, [facility] ers (ATARAX) 12-14 Oral, BID, ity o f tablet 10 17:30: First dose [place] mg 00 on [facility] 12/14/20 at Branch 1130, Until Discontinu ed, Routine lisinopriL Yes 5mg 5 mg, Univer s (PRINIVIL,Z 12-14 Oral, ity of ESTRIL) 17:30: DAILY, [place] tablet 5 mg 00 First dose [facility] 12/14/20 at 1130, Until Discontinu ed, Routine triamcinolo 2020- No [id number] Apply to [facility] 12-14 back, ity of acetonide 00:00: 00:00 armpits [place] 0.1 % cream 00 :00 and other Med ical affected Branch areas twice daily, please mix with clotrimazo le clotrimazol 2020- No [id number] Apply to Univers e 1 % 12-14 face/ears, ity of topical 00:00: 00:00 armpits, [place] cream 00 :00 pannus and Medical back/any Branch other rash twice a day fluocinonid 2020- No [id number] Apply to Univers e 0.05 % 12-14 scalp ity of solution 00:00: 00:00 twice a [place] 00 :00 day Medical Branch hydrOXYzine 2020- No [id number] 10mg Take 1 Univers 10 mg 12-14 [...] 1 [place] injection 4 00 :00 dose, [facility] ical mg 12/12/20 at Branch 2300, Routine traMADoL 2020- No 50mg 50 mg, Univer s (ULTRAM) 3 03-03 Oral, ity of tablet 50 03:45: 03:34 ONCE, 1 [place] mg 00 :00 dose, [facility] 12/12/20 at Branch 2145, Routine insulin Yes 15U 15 Units, Univ rs glargine 12-12 Subcutaneo ity o f (LANTUS 15:00: us, DAILY, [place] U-100) 00 First dose Medical injection on [facility] 15 Units 12/12/20 at 0900, Until Discontinu ed hydrOXYzine 2020- No 10mg 10 mg, Uni vers (ATARAX) 12-12 03-02 Oral, ity of tablet 10 08:15: 07:33 ONCE, 1 [place] mg 00 :00 dose, [facility] 12/12/20 at Branch 0215, Routine mirtazapine [...] dose [place] capsule 300 00 on [facility] Medica l mg 12/11/20 at Branch 2100, [...] mg 00 First dose Medical on Fri [facility] 12/11/20 at 1700, Until Discontinu ed, Routine [...] ed, Routine insulin Yes 5U 5 Units, [facility] s lispro 12-11 Subcutaneo ity of (human) 18:00: us, TID [place] (HumaLOG 00 MEALS, Medical U-100) First dose Branch injection 5 on [facility] Units 12/11/20 at 1200, Until Discontinu ed Polyethylen Yes 17g 17 g, [facility] rs e Glycol 12-11 Oral, ity of 3350 17:47: [id number], [place] (MIRALAX) 05 Starting Medica l powder [...]
Duration of therapy: 72 hours sennosides- Yes [id number] 1{tbl} Take 1 [facility] docusate 2-09 tablet by ity of sodium 00:00: mouth 2 [place] 8.6-50 mg 00 (two) Medical per tablet times Branch daily. hydrocortis Yes [id number] Apply to [facility] one 2.5 % 11-21 affected ity of cream 00:00: area(s) 2 [place] 00 (two) Medical times Branch daily. blood sugar Yes [id number] Use to [facility] diagnostic 2 check ity of (FREESTYLE 00:00: blood [place] LITE 00 glucose Medical STRIPS) 4-5 times Branch strip daily. Polyethylen Yes [id number] 17g Take 1 Univers e Glycol 2-09 Packet by ity of 3350 17 00:00: mouth [place] gram powder 00 every 24 Medi jose c (twenty-fo Branch ur) hours as needed for Constipati on. sennosides- Yes [id number] 1{tbl} Take 1 Univers docusate 2-09 tablet by ity of sodium 00:00: mouth 2 [place] 8.6-50 mg 00 (two) Medical per tablet times Branch daily. hydrocortis 2020-0 Yes [id number] Apply to Univers one 2.5 % 2-09 affected ity of cream 00:00: area(s) 2 [place] 00 (two) Medical times Branch daily. blood sugar 2020-0 Yes [id number] Use to Univers diagnostic 11-21 check ity of (FREESTYLE 00:00: blood [place] LITE 00 glucose Medical STRIPS) 4-5 times Branch strip daily. Polyethylen 2020-0 Yes [id number] 17g Take 1 Univers e Glycol 2-09 Packet by ity of 3350 17 00:00: mouth [place] gram powder 00 every 24 Medi jose c (twenty-fo Branch ur) hours as needed for Constipati on. sennosides- 2020-0 Yes [id number] 1{tbl} Take 1 Univers docusate 2-09 tablet by ity of sodium 00:00: mouth 2 [place] 8.6-50 mg 00 (two) Medical per tablet times Branch daily. hydrocortis 2020-0 Yes [id number] Apply to Univers one 2.5 % 2-09 affected ity of cream 00:00: area(s) 2 [place] 00 (two) Medical times Branch daily. blood sugar 2020-0 Yes [id number] Use to [facility] diagnostic 11-21 check ity of (FREESTYLE 00:00: blood [place] LITE 00 glucose Medical STRIPS) 4-5 times Branch strip daily. Polyethylen 2020-0 Yes [id number] 17g Take 1 Univers e Glycol 2-09 Packet by ity of 3350 17 00:00: mouth [place] gram powder 00 every 24 Medi jose c (twenty-fo Branch ur) hours as needed for Constipati on. sennosides- 2020-0 Yes [id number] 1{tbl} Take 1 Univers docusate 2-09 tablet by ity of sodium 00:00: mouth 2 [place] 8.6-50 mg 00 (two) Medical per tablet times Branch daily. hydrocortis 2020-0 Yes [id number] Apply to Univers one 2.5 % 2-09 affected ity of cream 00:00: area(s) 2 [place] 00 (two) Medical times Branch daily. blood sugar Yes [id number] Use to [facility] diagnostic 11-21 check ity of (FREESTYLE 00:00: blood [place] LITE 00 glucose Medical STRIPS) 4-5 times Branch strip daily. Polyethylen Yes [id number] 17g Take 1 Univers e Glycol 11-21 Packet by ity of 3350 17 00:00: mouth [place] gram powder 00 every 24 Medi jose c (twenty-fo Branch ur) hours as needed for Constipati on. Insulin 2020- No [id number] 15U inject 15 Univers Glargine 11-21 Units ity of (LANTUS 00:00: 05:59 [place] the [place] SOLOSTAR 00 :00 skin every Medic al U-100 morning Branch INSULIN) for 30 100 unit/mL days. (3 mL) injection venlafaxine 2020- No [id number] 150mg Take 1 Univers XR 150 mg 11-21 capsule by ity of 24 hr 00:00: 05:59 mouth 3 [place] capsule 00 :00 (three) Medical times Branch daily for 30 days. Insulin 2020- No [id number] 15U inject 15 Univers Glargine 11-2112 Units ity of (LANTUS 00:00: 05:59 under the [employer] SOLOSTAR 00 :00 skin every Medic al U-100 morning Branch INSULIN) for 30 100 unit/mL days. (3 mL) injection venlafaxine 2020- No [id number] 150mg Take 1 Univers XR 150 mg 11-21 capsule by ity of 24 hr 00:00: 05:59 mouth 3 [place] capsule 00 :00 (three) Medical times Branch daily for 30 days. triamcinolo 2020- No [id number] Apply to [facility] ne 11-21 area(s) 2 ity of acetonide 00:00: 00:00 (two) [place] 0.1 % cream 00 :00 times Medical daily. Branch cephALEXin 2020- No [id number] 1000mg Take 2 Univers 500 mg 11-21 capsules ity of capsule 00:00: 00:00 by mouth 3 [place] 00 :00 (three) Medical times Branch daily. doxycycline 2020- No [id number] 100mg Take 1 Univers hyclate 100 11-21 capsule by i ty of mg capsule 00:00: 00:00 mouth [place] 00 :00 every 12 Medical (twelve) Branch hours. lactobacill 2020- No [id number] 1{tbl} Take 1 Univers us 11-21 tablet by ity of acidophilus 00:00: 00:00 mouth 2 [place] 25 million 00 :00 (two) Medical cell -100 times Branch mg captab daily. bisacodyL 2020- No [id number] 10mg Insert 1 Univers 10 mg 11-21 Suppositor ity of suppository 00:00: 00:00 y into [place] 00 :00 rectum at Medical bedtime as Branch needed for Constipati on. ALPRAZolam 2020- No [id number] .25mg Take 1 Univers (XANAX) 11-21 tablet by ity of 0.25 mg 00:00: 00:00 mouth 2 [place] tablet 00 :00 (two) Medical times Branch daily. hydrOXYzine 2020- No [id number] 20mg Take 2 Univers 10 mg 11-21 [...] ity of (LANTUS 01:13: under the [place] [facility] 36 skin. Medical 100 unit/mL Branch (3 mL) InPn INSULIN 2019-10 Yes 5U inject 5 Univer s ASPART 1-12 Units ity of (NOVOLOG 01:13: under the [facility] s FLEXPEN SC) 36 skin. Medical [...] ity of (LANTUS 01:13: under the [place] SOLOSTID) 36 skin. Medical 100 unit/mL Branch (3 mL) In INSULIN 2019- Yes 5U inject 5 Univer s ASPART 1-12 Units ity of (NOVOLOG [facility]:13[facility] 36 skin. Medical [...] ity of (LANTUS 01:13: under the [place] [facility] 36 skin. Medical 100 unit/mL Branch (3 mL) In INSULIN 2019-10 Yes 5U inject 5 Univer s ASPART 1-12 Units ity of (NOVOLOG 01:13: under the [facility] s FLEXPEN SC) 36 skin. Medical [...] Units ity of (NOVOLOG 01:13: under the [facility] s FLEXPEN SC) 36 skin. Medical [...] 34 :00 Medical Branch hydrocortis 2019- Yes [id number] Apply to Univers one 2.5 % 1-11 affected ity of cream 00:00: area(s) 2 [place] (two) Medical times Branch daily. hydrOXYzine 2019-10 Yes [id number] 20mg Take 2 Univers 10 mg 1-11 tablets by ity of tablet 00:00: mouth [place] 00 every 8 Medical (eight) Branch hours as needed for Itching or Anxiety. Polyethylen 2019-10 Yes [id number] 17g Take 1 Univers e Glycol 1-11 Packet by ity of 3350 17 00:00: mouth [place] gram powder 00 every 24 Medi jose c (twenty-fo Branch ur) hours as needed for Constipati on. hydrocortis 2019-10 Yes [id number] Apply to Univers one 2.5 % 1-11 affected ity of cream 00:00: area(s) 2 [place] 00 (two) Medical times Branch daily. hydrOXYzine 2019- Yes [id number] 20mg Take 2 Univers 10 mg 1-11 tablets by ity of tablet 00:00: mouth [place] 00 every 8 Medical (eight) Branch hours as needed for Itching or Anxiety. Polyethylen 2019- Yes [id number] 17g Take 1 Univers e Glycol 1-11 Packet by ity of 3350 17 00:00: mouth [place] gram powder 00 every 24 Medi jose c (twenty-fo Branch ur) hours as needed for Constipati on. hydrocortis 2019- Yes [id number] Apply to Univers one 2.5 % 1-11 affected ity of cream 00:00: area(s) 2 [place] 00 (two) Medical times Branch daily. hydrOXYzine 2019- Yes [id number] 20mg Take 2 Univers 10 mg 1-11 tablets by ity of tablet 00:00: mouth [place] 00 every 8 Medical (eight) Branch hours as needed for Itching or Anxiety. Polyethylen 2020- Yes [id number] 17g Take 1 Univers e Glycol 1-11 Packet by ity of 3350 17 00:00: mouth [place] gram powder 00 every 24 Medi jose c (twenty-fo Branch ur) hours as needed for Constipati on. hydrocortis 2019- Yes [id number] Apply to Univers one 2.5 % 1-11 affected ity of cream 00:00: area(s) 2 [place] 00 (two) Medical times Branch daily. hydrOXYzine 2019- Yes [id number] 20mg Take 2 Univers 10 mg 1-11 tablets by ity of tablet 00:00: mouth [place] 00 every 8 Medical (eight) Branch hours as needed for Itching or Anxiety. Polyethylen 2019- Yes [id number] 17g Take 1 Univers e Glycol 1-11 Packet by ity of 3350 17 00:00: mouth [place] gram powder 00 every 24 Medi jose c (twenty-fo Branch ur) hours as needed for Constipati on. hydrocortis 2019-10 Yes [id number] Apply to Univers one 2.5 % 1-11 affected ity of cream 00:00: area(s) 2 [place] 00 (two) Medical times Branch daily. hydrOXYzine 2019- Yes [id number] 20mg Take 2 Univers 10 mg 1-11 tablets by ity of tablet 00:00: mouth [place] 00 every 8 Medical (eight) Branch hours as needed for Itching or Anxiety. Polyethylen 2019- Yes [id number] 17g Take 1 Univers e Glycol 1-11 Packet by ity of 3350 17 00:00: mouth [place] gram powder 00 every 24 Medi jose c (twenty-fo Branch ur) hours as needed for Constipati on. hydrocortis 2019- Yes [id number] Apply to Univers one 2.5 % 1-11 affected ity of cream 00:00: area(s) 2 [place] 00 (two) Medical times Branch daily. hydrOXYzine 2019- Yes [id number] 20mg Take 2 Univers 10 mg 1-11 tablets by ity of tablet 00:00: mouth [place] 00 every 8 Medical (eight) Branch hours as needed for Itching or Anxiety. Polyethylen 2019- Yes [id number] 17g Take 1 Univers e Glycol 1-11 Packet by ity of 3350 17 00:00: mouth [place] gram powder 00 every 24 Medi jose c (twenty-fo Branch ur) hours as needed for Constipati on. hydrocortis 2019-10 Yes [id number] Apply to Univers one 2.5 % 1-11 affected ity of cream 00:00: area(s) 2 [place] 00 (two) Medical times Branch daily. hydrOXYzine 2019-10 Yes [id number] 20mg Take 2 Univers 10 mg 1-11 tablets by ity of tablet 00:00: mouth [place] 00 every 8 Medical (eight) Branch hours as needed for Itching or Anxiety. Polyethylen 2019-10 Yes [id number] 17g Take 1 Univers e Glycol 1-11 Packet by ity of 3350 17 00:00: mouth [place] gram powder 00 every 24 Medi jose c (twenty-fo Branch ur) hours as needed for Constipati on. triamcinolo 2019-10 2020- No [id number] Apply to [facility] 10-23 area(s) 2 ity of acetonide 00:00: 05:59 (two) [place] 0.1 % cream 00 :00 times Medical daily for Branch 14 days. triamcinolo 2019-10 2020- No [id number] Apply to [facility] 10-23 area(s) 2 ity of acetonide 00:00: 05:59 (two) [place] 0.1 % cream 00 :00 times Medical daily for Branch 14 days. triamcinolo 2019-10 2020- No [id number] Apply to [facility] 10-23 area(s) 2 ity of acetonide 00:00: 05:59 (two) [place] 0.1 % cream 00 :00 times Medical daily for Branch 14 days. KCL 2019-10 2020- No 40meq 40 mEq, Univers (KLOR-CON 10-22- Oral, ONCE ity of M20) tablet 16:15: 16:23 NOW, 1 [place] 40 mEq 00 :00 dose, [facility] 08/22/20 Branch at 1015, Routine HYDROmorpho [...] Areas), Medical BID, First Branch dose on [facility] 08/21/20 at 2000, Until Discontinu ed, Routine triamcinolo 2019- Yes Topical, Un toi ne 1-10 BID, First ity of acetonide 02:00: dose on [place] (TRIDERM) 00 [facility] Medical 0.1 % cream 08/21/20 at Br anch 2000, Until Discontinu ed, Routine hydrOXYzine 2019-10 Yes 20mg 20 mg, Univ ers (ATARAX) 09 Oral, ity of tablet 20 17:39: Q8HPRN, [place] mg 12 Starting Medical [facility] Branch 08/21/20 at 1139, Until Discontinu ed, Routine, Itching, Anxiety sennosides- 2019-10 Yes 1{tbl} 1 tablet, Univers docusate 10-21 Oral, ity of sodium 15:00: DAILY, [place] (SENOKOT-S) 00 First dose Me dical 8.6-50 mg on [facility] Branch per tablet 08/21/20 at 1 tablet 0900, Until Discontinu ed, Routine hydrocortis 2019-10 2020- No Topical Un toi one 1 % 10-21- (Apply To ity of cream 15:00: 22:54 Affected [place] 00 :48 Areas), Medical DAILY, Branch First dose on [facility] 08/21/20 at 0900, Until Discontinu ed, Routine venlafaxine 2019-10 Yes 150mg 150 mg, Un toi XR (EFFEXOR 09 Oral, TID, it y of XR) 24 hr 14:00: First dose [place] capsule 150 00 on [facility] Medica l mg 08/21/20 at Branch 0800, Until Discontinu ed, Routine heparin 2019-10 Yes 5000U 5,000 Univers (porcine) -09 Units, ity of injection 14:00: Subcutaneo [place] 5,000 Units 00 us, Q12H, Med ical First dose Branch on [facility] 08/21/20 at 0800, Until Discontinu ed, Routine diphenhydrA 2019-10 2020- No 25mg 25 mg, Uni vers MINE 10-21 Oral, ity of (BENADRYL) 12:56: 17:39 Q8HPRN, [place] tablet 25 59 :43 Starting Medica l mg [facility] 08/21/20 at 0656, Until [facility] 08/21/20 at 1139, Routine, Itching, Mild Rash, Congestion /Allergies , alternate with hydroxyzin e hydrOXYzine 2019-10- No 10mg 10 mg, Uni vers (ATARAX) 10-21 Oral, ity of tablet 10 10:20: 12:57 Q6HPRN, [place] mg 22 :12 Starting [facility] 08/21/20 at 0420, Until [facility] 08/21/20 at 0657, Routine, Itching, Anxiety Sliding 2019-10 Yes Subcutaneo [facility] ers Scale 09 us, Q4H, ity of Insulin - 10:00: First dose [place] Aspart 00 (after Medical (NOVOLOG) + last Branch Fsbg modificati Testing on) on [facility] 08/21/20 at 0400, Until Discontinu ed, Routine lidocaine 5 2019-10 2020- No Topical, U nivers % ointment 10-21 ONCE, 1 ity o f 09:30: 09:14 dose, [facility] 00 :00 08/21/20 at [facility] 0330, Branch Routine Polyethylen 2019-10 Yes 17g 17 g, [facility] rs e Glycol 10-21 Oral, ity of 3350 08:29: [id number], [place] (MIRALAX) Starting Medica l powder 17 g [facility] 08/21/20 at 0229, Until Discontinu ed, Routine, Constipati on lanolin 2019-10 Yes Topical, [facility]- 10-21 PRN, ity of w.pet-ceres 08:26: Starting [place] (EUCERIN) 30 [facility] cream 08/21/20 at Branch 0226, Until Discontinu ed, Routine, Dermatitis /Rash ALPRAZolam 2019-10 Yes .25mg 0.25 mg, Un toi (XANAX) 10-21 Oral, ity of tablet 0.25 08:25: BIDPRN, [place] mg 41 Starting [facility] 08/21/20 at 0225, Until Discontinu ed, [...] hours. Branch blood sugar Yes Use to [employer] ers diagnostic 4-25 check ity of (FREESTYLE 00:00: blood [place] LITE 00 glucose Medical STRIPS) 4-5 times Branch strip daily. blood sugar Yes Use to [employer] ers diagnostic 4-25 check ity of (FREESTYLE 00:00: blood [place] LITE 00 glucose Medical STRIPS) 4-5 times Branch strip daily. blood sugar Yes Use to Univ ers diagnostic 4-25 check ity of (FREESTYLE 00:00: blood [place] LITE 00 glucose Medical STRIPS) 4-5 times Branch strip daily. blood sugar Yes Use to [employer] ers diagnostic 4-25 check ity of (FREESTYLE 00:00: blood [place] LITE 00 glucose Medical STRIPS) 4-5 times Branch strip daily. blood sugar Yes Use to [employer] ers diagnostic 4-25 check ity of (FREESTYLE 00:00: blood [place] LITE 00 glucose Medical STRIPS) 4-5 times Branch strip daily. blood sugar Yes Use to [facility] ers diagnostic 4-25 check ity [...] 13:00:00 148 mm[Hg] Univer sity of pressure [place] [facility] Diastolic blood 2021-08-22 13:00:00 84 mm[Hg] Unive rsity of pressure [facility] Heart rate 2021-08-22 13:00:00 103 /min [facility] Respiratory rate 2021-08-22 13:00:00 18 /min Univ ers[facility] [place] [facility] Oxygen saturation in 2021-08-22 13:00:00 95 /min University of Arterial blood by [facility] Pulse oximetry Branch Body temperature 2021-08-22 12:22:00 36.72 [place] Univ [facility] [place] [facility] Systolic blood 2020-12-17 18:35:00 139 mm[Hg] Univer sity of pressure [place] [facility] Diastolic blood 2020-12-17 18:35:00 87 mm[Hg] Unive rsity of pressure [place] [facility] Heart rate 2020-12-17 18:35:00 110 /min [facility] Body temperature 2020-12-17 18:35:00 37.72 [place] Univ [facility] [place] [facility] Respiratory rate 2020-12-17 18:35:00 18 /min Univ [facility] [place] [facility] Oxygen saturation in 2020-12-17 18:35:00 93 /min University of Arterial blood by [facility] Pulse oximetry Branch Body height 2020-12-12 08:21:00 180.3 cm [facility] Body weight 2020-12-12 08:21:00 103.42 kg [facility] BMI 2020-12-12 08:21:00 31.80 kg/m2 [facility] Systolic blood 2020-12-17 18:35:00 139 mm[Hg] Univer sity of pressure [place] [facility] Diastolic blood 2020-12-17 18:35:00 87 mm[Hg] Unive rsity of pressure [facility] Heart rate 2020-12-17 18:35:00 110 /min [facility] [place] [facility] Body temperature 2020-12-17 18:35:00 37.72 [place] [facility] [place] [facility] Respiratory rate 2020-12-17 18:35:00 18 /min Univ [facility] [place] [facility] Oxygen saturation in 2020-12-17 18:35:00 93 /min University of Arterial blood by [place] [facility] jose c Pulse oximetry Branch Body height 2020-12-12 08:21:00 180.3 cm [facility] [place] [facility] Body weight 2020-12-12 08:21:00 103.42 kg [facility] [place] [facility] BMI 2020-12-12 08:21:00 31.80 kg/m2 [facility] [place] [facility] Systolic blood 2020-08-23 19:27:00 140 mm[Hg] Univer sity of pressure [place] [facility] Diastolic blood 2020-08-23 19:27:00 79 mm[Hg] Unive rsity of pressure [facility] Heart rate 2020-08-23 19:27:00 99 /min [facility] [place] [facility] Body temperature 2020-08-23 19:27:00 36 [place] [facility] [place] [facility] Respiratory rate 2020-08-23 19:27:00 18 /min Univ [facility] [place] [facility] Oxygen saturation in 2020-08-23 19:27:00 93 /min University of Arterial blood by [place] [facility] jose c Pulse oximetry Branch Body weight [...] Branch Body temperature 2020-08-23 19:27:00 36 [place] [facility] Respiratory rate 2020-08-23 19:27:00 18 /min [facility] Oxygen saturation in 2020-08-23 19:27:00 93 /min [facility] Arterial blood by [facility] Pulse oximetry [place] Body weight 2020-08-21 07:20:00 104.962 kg [facility] BMI 2020-08-21 07:20:00 32.27 kg/m2 [facility] Procedures Procedure Date / Time Performing Clinician Source Performed POCT GLUCOSE (AUTOMATED) 2020-12-17 15:42:00 [facility]OL[facility] PANEL 2020-12-17 10:45:00 Paul Bean [facility] (NA, K, CL, CO2, GLUCOSE, [facility] BUN, CREATININE, CA) CBC WITH DIFF 2020-12-17 10:45:00 Paul Bean [facility] POCT GLUCOSE (AUTOMATED) 2020-12-17 02:36:00 Harrison, Premal G Uni [facility] XR TIBIA FIBULA 2 VW LEFT 2020-12-16 23:38:00 Paul Bean [facility] POCT GLUCOSE (AUTOMATED) 2020-12-16 23:20:00 Harrison, [facility] PO[facility] GLUCOSE (AUTOMATED) 2020-12-16 20:10:00 Harrison, Premal G Uni versity of [facility] POCT GLUCOSE (AUTOMATED) 2020-12-16 14:43:00 Harrison, [facility] BASIC METABOLIC PANEL 2020-12-16 13:51:00 Paul Bean [facility] (NA, K, CL, CO2, GLUCOSE, [facility] BUN, CREATININE, CA) CBC WITH DIFF 2020-12-16 13:51:00 Paul Bean [facility] POCT GLUCOSE (AUTOMATED) 2020-12-16 04:00:00 Harrison, [facility] POCT GLUCOSE (AUTOMATED) 2020-12-16 00:14:00 Harrison, Premal G Uni versity of [facility] CT CHEST PULMONARY 2020-12-15 22:29:38 Paul Bean [facility] ANGIOGRAM [facility] POCT GLUCOSE (AUTOMATED) 2020-12-15 19:26:00 Harrison, Premal G Uni versity of [facility] POCT GLUCOSE (AUTOMATED) 2020-12-15 15:13:00 Harrison, Premal G Uni versity of [facility] HB ECG ROUTINE & RHYTHM 2020-12-15 14:25:27 Cailin Romo [facility] Branch MAGNESIUM 2020-12-15 12:01:00 Paul Bean [facility] BASIC METABOLIC PANEL 2020-12-15 12:01:00 Paul Bean [facility] (NA, K, CL, CO2, GLUCOSE, [facility] BUN, CREATININE, CA) CBC WITH DIFF 2020-12-15 12:01:00 Paul Bean [facility] POCT GLUCOSE (AUTOMATED) 2020-12-15 03:57:00 Harrison, Premal G Uni versity of [facility] POCT GLUCOSE (AUTOMATED) 2020-12-14 23:31:00 Harrison, Premal G Uni versity of [facility] POCT GLUCOSE (AUTOMATED) 2020-12-14 19:08:00 Harrison, Premal G Uni versity of [facility] POCT GLUCOSE (AUTOMATED) 2020-12-14 15:11:00 Harrison, Premal G Uni versity of [facility] POCT GLUCOSE (AUTOMATED) 2020-12-14 02:36:00 Harrison, Premal G Uni versity of [facility] POCT GLUCOSE (AUTOMATED) 2020-12-13 23:32:00 Harrison, Premal G Uni versity of [facility] POCT GLUCOSE (AUTOMATED) 2020-12-13 18:08:00 Harrison, Premal G Uni versity of [facility] BASIC METABOLIC PANEL 2020-12-13 15:39:00 Paul Bean [facility] (NA, K, CL, CO2, GLUCOSE, [facility] BUN, CREATININE, CA) CBC WITH DIFF 2020-12-13 15:39:00 Paul Bean [facility] POCT GLUCOSE (AUTOMATED) 2020-12-13 14:06:00 Harrison, [facility]al [facility] POCT GLUCOSE (AUTOMATED) 2020-12-13 03:07:00 Harrison, [facility] POCT GLUCOSE (AUTOMATED) 2020-12-12 23:52:00 Harrison, Premal [facility] POCT GLUCOSE (AUTOMATED) 2020-12-12 20:28:00 Harrison, Premal [facility] POCT GLUCOSE (AUTOMATED) 2020-12-12 19:14:00 Harrison, [facility] POCT GLUCOSE (AUTOMATED) 2020-12-12 14:33:00 Harrison, Premal [facility] MAGNESIUM 2020-12-12 08:58:00 Paul Bean [facility] BASIC METABOLIC PANEL 2020-12-12 08:58:00 Paul Bean [facility] (NA, K, CL, CO2, GLUCOSE, [facility] BUN, CREATININE, CA) CBC WITH DIFF 2020-12-12 08:58:00 Paul Bean [facility] US ABDOMEN LIMITED 2020-12-12 06:32:26 Paul Bean Sivakumar [facility] POCT GLUCOSE (AUTOMATED) 2020-12-12 03:40:00 Harrison, Premal G Uni [facility] POCT GLUCOSE (AUTOMATED) 2020-12-12 00:06:00 Harrison, Premal G Uni [facility] XR HIPS 3 VW LEFT 2020-12-11 20:20:00 Darnell Beanaham Sivakumar [facility] HB ECG ROUTINE & RHYTHM 2020-12-11 20:04:06 Cailin Romo [facility] VITAMIN B6, PLASMA 2020-12-11 19:17:00 [facility] POCT GLUCOSE (AUTOMATED) 2020-12-11 19:06:00 Rene Harrison [facility] CREATINE KINASE 2020-12-11 18:22:00 Clarisse Hannon [facility] VITAMIN B12, LEVEL 2020-12-11 18:22:00 Paul Bean [facility] FOLATE 2020-12-11 18:22:00 Vikas [facility] THYROID STIMULATING 2020-12-11 18:22:00 Cailin Romo [facility] HORMONE [facility] PROCALCITONIN 2020-12-11 18:22:00 Vikas [facility] VITAMIN B1 (THIAMINE), 2020-12-11 18:22:00 Paul Bean Sivakumar [facility] WHOLE BLOOD [facility] CT HEAD WO CONTRAST 2020-12-11 14:07:35 Sweetie Stout [facility] URINALYSIS 2020-12-11 13:44:00 Singer [facility] URINE CULTURE 2020-12-11 13:44:00 [facility] COVID-19 (ID NOW RAPID 2020-12-11 12:31:00 Paco Lacey [facility] TESTING) [facility] LAB ONLY COVID 2020-12-11 12:31:00 Singer [facility] XR CHEST 1 VW 2020-12-11 12:07:24 Singer [facility] BLOOD CULTURE SCREEN 2020-12-11 12:02:00 Paco Lacey [facility] MAGNESIUM 2020-12-11 12:02:00 Paul Bean [facility]iv[facility]umar [facility] FERRITIN SERUM 2020-12-11 12:02:00 Darnell Baenaham [facility] COMP. METABOLIC PANEL 2020-12-11 12:02:00 Paco Lacey [facility] ([id number]) Medical Branch CBC WITH DIFF 2020-12-11 12:02:00 Singer [facility] LACTIC ACID WHOLE BLOOD 2020-12-11 12:02:00 Paco Lacey [facility] BLOOD CULTURE SCREEN 2020-12-11 11:42:00 Paco Lacey [facility] EMERGENCY SERVICES 2020-12-11 06:01:00 Doctor Tabitha, [facility] AGREEMENTS AND [place] [facility] AUTHORIZATIONS HOSPITAL ADMISSION 2020-12-11 06:01:00 Doctor Tabitha [facility] [place] [facility] HOME HEALTH - OTHER 2020-11-11 06:01:00 Doctor Tabitha [facility] [place] [facility] HEALTH - OTHER 2020-10-30 06:01:00 Doctor Tabitha [facility] Name [facility] EXTERNAL PROVIDER RECORDS 2020-09-01 06:01:00 Doctor Tabitha, [facility] Name [facility] POCT GLUCOSE (AUTOMATED) 2020-08-23 18:09:00 Kelly [place] [facility] POCT GLUCOSE (AUTOMATED) 2020-08-23 14:14:00 Kelly [place] [facility] MAGNESIUM 2020-08-23 11:18:00 [facility] BASIC METABOLIC PANEL 2020-08-23 11:18:00 [facility] (NA, K, CL, CO2, GLUCOSE, Medica l Branch BUN, CREATININE, CA) CBC WITH DIFF 2020-08-23 11:18:00 [facility] POCT GLUCOSE (AUTOMATED) 2020-08-23 10:21:00 [facility]SE ([facility]OMATED) 2020-08-23 05:55:00 [facility] POCT GLUCOSE (AUTOMATED) 2020-08-23 03:00:00 [facility] POCT GLUCOSE (AUTOMATED) 2020-08-22 23:38:00 Kelly [facility] POCT GLUCOSE (AUTOMATED) 2020-08-22 19:04:00 [place], Kelly Uni [facility] POCT GLUCOSE (AUTOMATED) 2020-08-22 13:49:00 Kelly [place] [facility] MAGNESIUM 2020-08-22 10:10:00 Ramya, [facility] HEPATIC FUNCTION PANEL 2020-08-22 10:10:00 Jill Aguila [facility] ([id number]) (ALB,T.PRO,BILI Medical Branch T,BU/BC,ALT,AST,ALK PHOS) BASIC METABOLIC PANEL 2020-08-22 10:10:00 Ramya, [facility] (NA, K, CL, CO2, GLUCOSE, Medica l Branch BUN, CREATININE, CA) LIPID PANEL ([id number])(TOTAL 2020-08-22 10:10:00 [place], [facility] TRIGLYCERIDES, HDL) CBC WITH DIFF 2020-08-22 10:10:00 [facility] POCT GLUCOSE (AUTOMATED) 2020-08-22 10:10:00 Kelly [place] [facility] POCT GLUCOSE (AUTOMATED) 2020-08-22 07:13:00 Kelly [place] [facility] POCT GLUCOSE (AUTOMATED) 2020-08-22 02:24:00 Kelly [place] [facility] POCT GLUCOSE (AUTOMATED) 2020-08-21 23:40:00 Kelly [place] [facility] POCT GLUCOSE (AUTOMATED) 2020-08-21 18:10:00 Kelly [place] [facility] POCT GLUCOSE (AUTOMATED) 2020-08-21 13:39:00 [place] [facility] ETHANOL 2020-08-21 12:35:00 Jos Quiroz [facility] ACTIVATED PARTIAL 2020-08-21 12:35:00 Padmini [facility] THRMPLAS [facility] GALV ONLY - SYPHILIS 2020-08-21 12:35:00 Padmini Kelly [facility] IGG/IGM [facility] LACTATE DEHYDROGENASE 2020-08-21 10:09:00 [place], [facility] GALV/CLC ONLY - URINE 2020-08-21 10:09:00 Jos Quiroz [facility] DRUG (IMMUNOASSAY) - 4 ER Medica l Branch PANEL URINALYSIS 2020-08-21 10:09:00 [place], [facility] URINE CULTURE 2020-08-21 10:09:00 [place], [facility] PROCALCITONIN 2020-08-21 10:09:00 [place], [facility] POCT GLUCOSE (AUTOMATED) 2020-08-21 09:41:00 Kelly [place] [facility] PROTHROMBIN TIME / INR 2020-08-21 08:32:00 [place], [facility] ACTIVATED PARTIAL 2020-08-21 08:32:00 [place], [facility] THRMPLAS [facility] C-REACTIVE PROTEIN 2020-08-21 08:31:00 Ramya, [facility] HEPATIC FUNCTION PANEL 2020-08-21 08:31:00 [place], [facility] ([id number]) (ALB,T.PRO,BILI Medical Branch T,BU/BC,ALT,AST,ALK PHOS) BASIC METABOLIC PANEL 2020-08-21 08:31:00 [place], [facility] (NA, K, CL, CO2, GLUCOSE, [facility] BUN, CREATININE, CA) SEDIMENTATION RATE 2020-08-21 08:31:00 [place], [facility] CBC WITH DIFF 2020-08-21 08:31:00 [place], [facility] GLYCOSYLATED HEMOGLOBIN 2020-08-21 08:31:00 Ramya, [facility] (A1C) [facility] HIV 1/2 AG-AB WITH REFLEX 2020-08-21 08:31:00 [facility] [place] [facility] COVID-[facility] (ID NOW RAPID 2020-08-21 08:20:00 [place], [facility] TESTING) Medical Branch LAB ONLY COVID 2020-08-21 08:20:00 [place], [facility] o [facility] Encounters Start End Encounter Admission Attending Care Care Encounter Source Date/Time Date/Time Type Type Clinicians Facility Department ID 2020-08-21 Inpatient Shayy WASHINGTON [facility] KVNG [id number] Univers 01:07:00 KELLY cantu [facility] 2021-08-22 2021-08-22 [id number] Univers 06:21:00 08:02:00 SWEETIE cantu [facility] 2021-08-22 2021-08-22 [facility] [id number] Univers 06:21:00 08:02:00 Sweetie OREN [id number] i ty [place] [id number] [facility] 084 [place] 2021-08-09 2021-08-09 Outpatient ZAKI, [facility] [id number] 10:27:03 10:27:03 ADRIANA lopez of Medicin e 2020-12-28 2020-12-28 Telephone [facility] 1.2.840.114 [id number] 00:00:00 00:00:00 Calvin H PRIMARY [id number] CARE 4.2.7.2.686 PAVILLION [id number] 2020-12-28 2020-12-28 Telephone [facility] 1.2.840.114 [id number] Univers 00:00:00 00:00:00 Calvin H PRIMARY [id number] it y of [place] [facility] [id number] Az dical 220 Branch 2020-12-19 2020-12-19 Transition Tuan Peters 1.2.840.114 [id number] 00:00:00 00:00:00 of Care Ruchi Braswell [id number] [place] 4.2.7.2.686 [id number] 2020-12-19 2020-12-19 Transition Tuan Peters 1.2.840.114 [id number] Univers 00:00:00 00:00:00 of Care Ruchi Braswell [id number] it [place] [id number] [facility] 403 Branch 2020-12-11 2020-12-17 [facility] Paco Lacey 1.2.840.1 [id number] 05:11:00 16:00:00 Encounter Rene Harrison [place] [id number] [facility] 4.2.7.2.686 [id number] [facility] 2020-12-11 2020-12-17 [facility] 1.2.840.1 [id number] [facility] 05:11:00 16:00:00 Encounter Rene Harrison [id number] ity of [facility] 4.2.7.2.686 [place] [id number] [place] 520336 [place] 2020-12-11 2020-12-11 Emergency X [facility] ERT [id number] Univers 05:11:00 05:11:00 [facility] 2020-11-16 2020-11-16 Emergency X [facility] ERT [id number] Univers 09:31:00 09:31:00 [facility] 2020-11-11 2020-11-11 Orders Doctor CUI 1.2.840.114 [id number] 00:00:00 00:00:00 Only Unassigned, MONIQUE [id number] [place] [facility] 4.2.7.2.686 [id number] [id number] 2020-11-11 2020-11-11 Orders Doctor CUI 1.2.840.114 [id number] Univers 00:00:00 00:00:00 Only Unassigned, MONIQUE [id number] ity of [place] [facility] 4.2.7.2.686 Jeff as [id number] [facility] 009 [place] 2020-11-07 2020-11-07 Telephone Wilder [facility] [id number] 00:00:00 00:00:00 Angi Tobin 350.1.13.10 [place] 4.2.7.2.686 Professio [id number] [address] 2020-11-07 2020-11-07 Telephone Hdz [facility] [id number] [facility] 00:00:00 00:00:00 Sendil DieogWongHawaWong Tobin 350.1.13.10 ity of [place] Profess[place] [phone] [address] 2020-10-30 2020-10-30 Orders Doctor BASILIA 1.2.840.114 [id number] 00:00:00 00:00:00 Only Unassigned, MONIQUE 350.1.13.10 [place] [facility] 4.2.7.2.[id number] [facility] 2020-10-30 2020-10-30 Orders Doctor CUI 1.2.840.114 [id number] Univers 00:00:00 00:00:00 Only Unassigned, MONIQUE 350.1.13.10 ity of [place] [facility] 4.2.7.2.686 Jeff as [id number] [address] 2020-09-26 2020-09-26 Telephone [facility] 1.2.840.114 [id number] 00:00:00 00:00:00 [facility] [id number] CLINICS 4.2.7.2.686 [id number] [facility] 2020-09-26 2020-09-26 Telephone [facility] 1.2.840.114 [id number] Univers 00:00:00 00:00:00 [facility] 350.1.13.10 i ty of CL[place] [id number] [address] 2020-09-01 2020-09-01 Orders Doctor CUI 1.2.840.114 [id number] 00:00:00 00:00:00 Only Unassigned, MONIQUE 350.1.13.10 [place] [facility] 4.2.7.2.686 [id number] 2020-09-01 2020-09-01 Orders Doctor BASILIA 1.2.840.114 [id number] Univers 00:00:00 00:00:00 Only Unassigned, MONIQUE 350.1.13.10 ity of [place] [facility] 4.2.7.2.686 Jeff as [id number] [facility] 009 Branch 2020-08-25 2020-08-25 Transition Tuan Peters 1.2.840.114 [id number] 00:00:00 00:00:00 of Care Ruchi Brawsell 350.1.13.10 [place] 4.2.7.2.686 [id number] [facility] 2020-08-25 2020-08-25 Transition Tuan Peters 1.2.840.114 [id number] [facility] 00:00:00 00:00:00 of Care Ruchi Braswell 350.1.13.10 it [place] [phone] [address] 2020-08-21 2020-08-23 [facility] Ayleen 1.2.840.114 [id number] 01:07:00 18:35:00 Encounter Kelly Amaya 350.1.13.10 [facility] 4.2.7.2.686 [id number] [facility] 2020-08-21 2020-08-23 [facility] [place]Kelly 1. 2.840.114 [id number] [facility] 01:07:00 18:35:00 Encounter Nicci Mukul Kika Monique 350.1.13. 10 ity [facility] 4.2.7.2.686 Jeff as [id number] [address] Results Test Description Test Time Test Comments Results Result Comments Source POCT GLUCOSE (AUTOMATED) 2020-12-17 15:43:35 Test Item Value Reference Range Interpretation Comme nts POCT GLU (test code = 5473980014) 129 mg/dL 70-110 H Lab Interpretation (test code = 39048-1) Abnormal [facility] METABOLIC PANEL (NA, K, CL, CO2, GLUCOSE, BUN, CREATININE, CA)2020-12-17 11:45:07 Test Item Value Reference Range Interpretation Comments NA (test code = 137 mmol/L 135-145 6584862413) K (test code = 3.5 mmol/L 3.5-5.0 0641909725) CL (test code = 103 mmol/L 98-108 0402304934) CO2 TOTAL (test code = 26 mmol/L 23-31 9505746287) AGAP (test code = 2-16 1132374578) BUN (test code = 11 mg/dL 7-23 9167207207) GLUCOSE (test code = 175 mg/dL 70-110 H 6537173831) CREATININE (test code = 0.62 mg/dL 0.60-1.25 1814785372) CALCIUM (test code = 9.0 mg/dL 8.6-10.6 7080475188) eGFR Calculation mL/min/1.73m2 (Non-) (test code = 0417490839) eGFR Calculation mL/min/1.73m2 () (test code = 7172933475) JAMES (test code = JAMES) Association of [...] tests). Lab Interpretation Abnormal (test code = 90093-0) [facility] WITH [id number] 11:07:27 Test Item Value Reference Range Interpretation [...] RDW-SD (test code = 45.2 fL 38.5-51.6 68053-2) RDW-CV (test code = 16.9 % 12.1-15.4 H 788-0) PLT (test code = See_Comment H [Automated 777-3) message] The sy stem which generated this result transmitted reference range : 150 - 328 10*3/ ?L. The reference r torito was not used to interpret this result as normal/abnormal . MPV (test code = 8.1 fL 9.8-13.0 L 00112-4) NRBC/100 WBC (test See_Comment [Automat ed code = 1780432144) message] The system which generated this result transmitted reference range : 0.0 - 10.0 /100 WBCs. The refer ence range was not u sed to interpret th is result as normal/abnormal . NRBC x10^3 (test code <0.01 See_Comment [Auto mated = 6248249906) message] The s [employer] which generated this result transmitted reference range : 10*3/?L. The reference range was not used to interpret this result as normal/abnormal . GRAN MAT (NEUT) % 72.8 % (test code = 770-8) IMM GRAN % (test code 0.60 % = 7743861451) LYMPH % (test code = 18.4 % 736-9) MONO % (test code = 5.7 % 5905-5) EOS % (test code = 1.8 % 713-8) BASO % (test code = 0.7 % 706-2) GRAN MAT x10^3(ANC) 8.23 10*3/uL 1.99-6.95 H (test code = 6552472266) IMM GRAN x10^3 (test 0.07 10*3/uL 0.00-0.06 H code = 2134375474) LYMPH x10^3 (test code 2.08 10*3/uL 1.09-3.23 = 731-0) MONO x10^3 (test code 0.65 10*3/uL 0.36-1.02 = 742-7) EOS x10^3 (test code = 0.20 10*3/uL 0.06-0.53 711-2) BASO x10^3 (test code 0.08 10*3/uL 0.01-0.09 = 704-7) Lab Interpretation Abnormal (test code = 28565-5) [facility] 06:03:38 Test Item Value Reference Range Interpretation Comments POCT GLU (test code = 8619673993) 75 mg/dL 70-110 Lab Interpretation (test code = Normal 01991-0) [facility]6, [id number] 00:01:00 Test Item Value Reference Range Interpretation Comments VIT B6 (test code = 13.1 nmol/L 20.0-125.0 L INTERPRE TIVE 32771-3) INFORMATION: Vi tamin B6 (Pyridoxal 5-Phosphate) Pyridoxal 5'-phosphate me asured in a specimen collected follo wing an 8-hour or overnight fast accurately clara cates vitamin B6 nutritional sta tus. Non-fasting spe cimen concentration reflects recent vitamin intake. This test was develo ped and its perform ance characteristics determined by [facility]. I t has not been cleare d or approved by the [place] Food and Drug Administration. This test was perfor med in a CLIA certifie d laboratory and is intended for cl inical purposes.Perfor med By: [employer] [place] [address] [id number] Director: Namrata Klein MD Lab Interpretation Abnormal (test code = 67909-1) [facility] TIBIA FIBULA 2 VW [id number] 23:57:09 Tricompartmental knee joint osteoarthrosis.XR TIBIA FIBULA [...] No acute fracture or dislocation.IMPRESSIONTricompartmental knee joint osteoarthrosis.[facility] GLUCOSE (AUTOMATED) 2020-12-16 23:27:00 Test Item Value Reference Range Interpretation Comments POCT GLU (test code = 1755257865) 114 mg/dL 70-110 H Lab Interpretation (test code = Abnormal 53205-0) [facility] GLUCOSE (AUTOMATED)2020-12-16 20:12:00 Test Item Value Reference Range Interpretation Comments POCT GLU (test code = 3574798966) 105 mg/dL 70-110 Lab Interpretation (test code = Normal 00734-8) [facility] GLUCOSE (AUTOMATED)2020-12-16 14:44:00 Test Item Value Reference Range Interpretation Comments POCT GLU (test code = 4032123608) 153 mg/dL 70-110 H Lab Interpretation (test code = Abnormal 54481-4) [facility] METABOLIC PANEL (NA, K, CL, CO2, GLUCOSE, BUN, CREATININE, CA)2020-12-16 14:23:00 Test Item Value Reference Range Interpretation Comments NA (test code = 138 mmol/L 135-145 2415096968) K (test code = 3.4 mmol/L 3.5-5.0 L 8431230076) CL (test code = 100 mmol/L 98-108 5109591667) CO2 TOTAL (test code = 31 mmol/L 23-31 8802979372) AGAP (test code = 2-16 0562484963) BUN (test code = 11 mg/dL 7-23 0358933253) GLUCOSE (test code = 162 mg/dL 70-110 H 4944571680) CREATININE (test code = 0.64 mg/dL 0.60-1.25 0105688713) CALCIUM (test code = 8.9 mg/dL 8.6-10.6 3562143599) eGFR Calculation mL/min/1.73m2 (Non-) (test code = 6578104238) eGFR Calculation mL/min/1.73m2 () (test code = 1049810821) JAMES (test code = JAMES) Association of [...] tests). Lab Interpretation Abnormal (test code = 30354-5) [facility] WITH [id number] 14:05:00 Test Item Value Reference Range Interpretation [...] RDW-SD (test code = 45.4 fL 38.5-51.6 60207-8) RDW-CV (test code = 17.0 % 12.1-15.4 H 788-0) PLT (test code = See_Comment H [Automated 777-3) message] The sy stem which generated this result transmitted reference range : 150 - 328 10*3/ ?L. The reference r torito was not used to interpret this result as normal/abnormal . MPV (test code = 8.0 fL 9.8-13.0 L 39247-5) NRBC/100 WBC (test See_Comment [Automat ed code = 5526891948) message] The system which generated this result transmitted reference range : 0.0 - 10.0 /100 WBCs. The refer ence range was not u sed to interpret th is result as normal/abnormal . NRBC x10^3 (test code <0.01 See_Comment [Auto mated = 4844323499) message] The s ystem which generated this result transmitted reference range : 10*3/?L. The reference range was not used to interpret this result as normal/abnormal . GRAN MAT (NEUT) % 70.0 % (test code = 770-8) IMM GRAN % (test code 0.70 % = 3411771204) LYMPH % (test code = 20.5 % 736-9) MONO % (test code = 7.1 % 5905-5) EOS % (test code = 1.0 % 713-8) BASO % (test code = 0.7 % 706-2) GRAN MAT x10^3(ANC) 9.44 10*3/uL 1.99-6.95 H (test code = 9759385221) IMM GRAN x10^3 (test 0.09 10*3/uL 0.00-0.06 H code = 4771858634) LYMPH x10^3 (test code 2.76 10*3/uL 1.09-3.23 = 731-0) MONO x10^3 (test code 0.96 10*3/uL 0.36-1.02 = 742-7) EOS x10^3 (test code = 0.13 10*3/uL 0.06-0.53 711-2) BASO x10^3 (test code 0.10 10*3/uL 0.01-0.09 H = 704-7) Lab Interpretation Abnormal (test code = 31855-3) [facility] # [id number] 13:01:00 Test Item Value Reference Range Interpretation Comments Blood Culture-Aerobic No organisms No growth Previo us (test code = 69496-5) isolated prelim inary verified result was Culture In Progress on 12/11/2020 at 100 1 CSTPrevious preliminary verified result was No growth a t 24 hours on 12/12/2020 at 070 1 CSTPrevious preliminary verified result was No growth a t 48 hours on 12/13/2020 at 070 1 CSTPrevious preliminary verified result was No growth a t 72 hours on 12/14/2020 at 070 1 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 Blood No organisms No growth Previous Culture-Anaerobic isolated preliminar y (test code = 21747-8) verifi ed result was Culture In Progress on 12/11/2020 at 100 1 CSTPrevious preliminary verified result was No growth a t 24 hours on 12/12/2020 at 070 1 CSTPrevious preliminary verified result was No growth a t 48 hours on 12/13/2020 at 070 1 CSTPrevious preliminary verified result was No growth a t 72 hours on 12/14/2020 at 070 1 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 Lab Interpretation Normal (test code = 20148-5) [facility] [id number] 13:01:00 Test Item Value Reference Range Interpretation Comments Blood Culture-Aerobic No organisms No growth Previo us (test code = 92545-6) isolated prelim inary verified result was Culture In Progress on 12/11/2020 at 100 1 CSTPrevious preliminary verified result was No growth a t 24 hours on 12/12/2020 at 070 1 CSTPrevious preliminary verified result was No growth a t 48 hours on 12/13/2020 at 070 1 CSTPrevious preliminary verified result was No growth a t 72 hours on 12/14/2020 at 070 1 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 Blood No organisms No growth Previous Culture-Anaerobic isolated preliminar y (test code = 18092-7) verifi ed result was Culture In Progress on 12/11/2020 at 100 1 CSTPrevious preliminary verified result was No growth a t 24 hours on 12/12/2020 at 070 1 CSTPrevious preliminary verified result was No growth a t 48 hours on 12/13/2020 at 070 1 CSTPrevious preliminary verified result was No growth a t 72 hours on 12/14/2020 at 070 1 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 Lab Interpretation Normal (test code = 35272-4) [facility] GLUCOSE (AUTOMATED)2020-12-16 04:01:00 Test Item Value Reference Range Interpretation Comments POCT GLU (test code = 6516586292) 156 mg/dL 70-110 H Lab Interpretation (test code = Abnormal 04394-7) [facility] GLUCOSE (AUTOMATED)2020-12-16 00:24:00 Test Item Value Reference Range Interpretation Comments POCT GLU (test code = 5785612372) 115 mg/dL 70-110 H Lab Interpretation (test code = Abnormal 24200-7) [facility] CHEST PULMONARY [id number] 23:34:55No pulmonary emboli. No interval change in [...] of intra and extrahepatic biliary du ctal dilatation.[facility] GLUCOSE (AUTOMATED) 2020-12-15 19:28:00 Test Item Value Reference Range Interpretation Comments POCT GLU (test code = 0771735716) 140 mg/dL 70-110 H Lab Interpretation (test code = Abnormal 23842-5) [facility] 15:26:00 Test Item Value Reference Range Interpretation Comments MAGNESIUM (test code = 0940502174) 2.2 mg/dL 1.7-2.4 Lab Interpretation (test code = Normal 81614-0) [facility]2020-12-15 15:15:00 Test Item Value Reference Range Interpretation Comments POCT GLU (test code = 7109091311) 181 mg/dL 70-110 H Lab Interpretation (test code = Abnormal 04377-5) [facility] (NA, K, CL, CO2, GLUCOSE, BUN, CREATININE, CA)2020-12-15 13:07:00 Test Item Value Reference Range Interpretation Comments NA (test code = 136 mmol/L 135-145 8799501795) K (test code = 3.6 mmol/L 3.5-5.0 3704773049) CL (test code = 96 mmol/L 98-108 L 4540950549) CO2 TOTAL (test code = 29 mmol/L 23-31 9133970457) AGAP (test code = 2-16 7587209857) BUN (test code = 12 mg/dL 7-23 0448470133) GLUCOSE (test code = 183 mg/dL 70-110 H 3334976365) CREATININE (test code = 0.70 mg/dL 0.60-1.25 0307617204) CALCIUM (test code = 9.2 mg/dL 8.6-10.6 9939449137) eGFR Calculation mL/min/1.73m2 (Non-) (test code = 3839533721) eGFR Calculation mL/min/1.73m2 () (test code = 2938612606) JAMES (test code = JAMES) Association of [...] tests). Lab Interpretation Abnormal (test code = 20243-6) [facility] WITH [id number] 12:32:00 Test Item Value Reference Range Interpretation Comments WBC (test code = See_Comment H [Automated 0890-2) message] The system which generated this result transmit ronan reference range : 4.20 - 10.70 10*3/?L. The reference range was not used to interpret this result as normal/abnormal . RBC (test code = See_Comment H [Automated 579-8) message] The system which generated this result [...] RDW-SD (test code = 44.4 fL 38.5-51.6 11724-0) RDW-CV (test code = 17.7 % 12.1-15.4 H 788-0) PLT (test code = See_Comment H [Automated 777-3) message] The system which generated this result transmit ronan reference range : 150 - 328 10*3/ ?L. The reference range was not u sed to interpret th is result as normal/abnormal . MPV (test code = 8.1 fL 9.8-13.0 L 57403-1) NRBC/100 WBC (test See_Comment [Automat ed code = 6101420532) message] The system which generated this result transmit ronan reference range : 0.0 - 10.0 /100 WBCs. The reference range was not used to interpret this result as normal/abnormal . NRBC x10^3 (test code <0.01 See_Comment [Auto mated = 2639198631) message] The system which generated this result transmit ronan reference range : 10*3/?L. The reference range was not used to interpret this result as normal/abnormal . GRAN MAT (NEUT) % 74.5 % (test code = 770-8) IMM GRAN % (test code 0.70 % = 0264619105) LYMPH % (test code = 17.4 % 736-9) MONO % (test code = 6.8 % 5905-5) EOS % (test code = 0.2 % 713-8) BASO % (test code = 0.4 % 706-2) GRAN MAT x10^3(ANC) 11.99 10*3/uL 1.99-6.95 H (test code = 2643288494) IMM GRAN x10^3 (test 0.11 10*3/uL 0.00-0.06 H code = 2528537617) LYMPH x10^3 (test code 2.80 10*3/uL 1.09-3.23 = 731-0) MONO x10^3 (test code 1.10 10*3/uL 0.36-1.02 H = 742-7) EOS x10^3 (test code = 0.03 10*3/uL 0.06-0.53 L 711-2) BASO x10^3 (test code 0.06 10*3/uL 0.01-0.09 = 704-7) Lab Interpretation Abnormal (test code = 92174-6) [facility] GLUCOSE (AUTOMATED)2020-12-15 04:16:00 Test Item Value Reference Range Interpretation Comments POCT GLU (test code = 5178926270) 200 mg/dL 70-110 H Lab Interpretation (test code = Abnormal 38251-9) [facility]IT[facility]1 (THIAMINE), WHOLE [id number] 00:30:00 Test Item Value Reference Range Interpretation Comments Vitamin B1, Whole 136 nmol/L 70-180 INTERPRETI VE INFORMATION: Blood (test code = Vitamin B 1, Whole Blood 82691-2) This assay júnior ures the concentration o [...] its performance characteristics determined by [facility]. I t has not been cleared or approved by the [place] Food and Drug Administration. This test was performed i n a CLIA certified labor atory and is intended for clinical purposes.Perfor med By: [facility] [place] [id number] aboratory Director: Namrata Klein MD [facility] GLUCOSE (AUTOMATED)2020-12-14 23:35:00 Test Item Value Reference Range Interpretation Comments POCT GLU (test code = 6865394984) 151 mg/dL 70-110 H Lab Interpretation (test code = Abnormal 25129-1) [facility] GLUCOSE (AUTOMATED)2020-12-14 19:19:00 Test Item Value Reference Range Interpretation Comments POCT GLU (test code = 8877275731) 193 mg/dL 70-110 H Lab Interpretation (test code = Abnormal 23535-1) [facility] GLUCOSE (AUTOMATED)2020-12-14 15:22:00 Test Item Value Reference Range Interpretation Comments POCT GLU (test code = 9007242348) 221 mg/dL 70-110 H Lab Interpretation (test code = Abnormal 54220-5) [facility] GLUCOSE (AUTOMATED)2020-12-14 02:37:00 Test Item Value Reference Range Interpretation Comments POCT GLU (test code = 7548277909) 210 mg/dL 70-110 H Lab Interpretation (test code = Abnormal 04462-1) [facility] GLUCOSE (AUTOMATED)2020-12-13 23:33:00 Test Item Value Reference Range Interpretation Comments POCT GLU (test code = 4696167235) 182 mg/dL 70-110 H Lab Interpretation (test code = Abnormal 53612-8) [facility] GLUCOSE (AUTOMATED)2020-12-13 18:09:00 Test Item Value Reference Range Interpretation Comments POCT GLU (test code = 6923611534) 150 mg/dL 70-110 H Lab Interpretation (test code = Abnormal 34907-0) [facility] METABOLIC PANEL (NA, K, CL, CO2, GLUCOSE, BUN, CREATININE, CA)2020-12-13 16:27:00 Test Item Value Reference Range Interpretation Comments NA (test code = 136 mmol/L 135-145 8857390817) K (test code = 3.7 mmol/L 3.5-5.0 0483189024) CL (test code = 96 mmol/L 98-108 L 0202457327) CO2 TOTAL (test code = 29 mmol/L 23-31 5181835823) AGAP (test code = 2-16 2621446959) BUN (test code = 6 mg/dL 7-23 L 7070850036) GLUCOSE (test code = 212 mg/dL 70-110 H 2578951077) CREATININE (test code = 0.61 mg/dL 0.60-1.25 1610470827) CALCIUM (test code = 9.5 mg/dL 8.6-10.6 2601878935) eGFR Calculation mL/min/1.73m2 (Non-) (test code = 4849051564) eGFR Calculation mL/min/1.73m2 () (test code = 3958770783) JAMES (test code = JAMES) Association of [...] tests). Lab Interpretation Abnormal (test code = 75744-9) [facility] WITH [id number] 16:10:00 Test Item Value Reference Range Interpretation Comments WBC (test code = See_Comment H [Automated 3990-2) message] The sy stem which generated this result transmitted reference range : 4.20 - 10.70 10*3/?L. The reference range was not used to interpret this result as normal/abnormal . RBC (test code = See_Comment H [Automated 509-8) message] The sy stem which generated this [...] RDW-SD (test code = 43.3 fL 38.5-51.6 31008-8) RDW-CV (test code = 16.2 % 12.1-15.4 H 788-0) PLT (test code = See_Comment H [Automated 777-3) message] The sy stem which generated this result transmitted reference range : 150 - 328 10*3/ ?L. The reference r torito was not used to interpret this result as normal/abnormal . MPV (test code = 8.2 fL 9.8-13.0 L 73646-0) NRBC/100 WBC (test See_Comment [Automat ed code = 5150087828) message] The system which generated this result transmitted reference range : 0.0 - 10.0 /100 WBCs. The refer ence range was not u sed to interpret th is result as normal/abnormal . NRBC x10^3 (test code <0.01 See_Comment [Auto mated = 1602887230) message] The s ystem which generated this result transmitted reference range : 10*3/?L. The reference range was not used to interpret this result as normal/abnormal . GRAN MAT (NEUT) % 86.2 % (test code = 770-8) IMM GRAN % (test code 0.70 % = 8081799876) LYMPH % (test code = 10.2 % 736-9) MONO % (test code = 2.5 % 5905-5) EOS % (test code = 0.1 % 713-8) BASO % (test code = 0.3 % 706-2) GRAN MAT x10^3(ANC) 9.61 10*3/uL 1.99-6.95 H (test code = 8869271320) IMM GRAN x10^3 (test 0.08 10*3/uL 0.00-0.06 H code = 1372602215) LYMPH x10^3 (test code 1.14 10*3/uL 1.09-3.23 = 731-0) MONO x10^3 (test code 0.28 10*3/uL 0.36-1.02 L = 742-7) EOS x10^3 (test code = <0.03 0.06-0.53 L 711-2) BASO x10^3 (test code 0.03 10*3/uL 0.01-0.09 = 704-7) Lab Interpretation Abnormal (test code = 45932-9) [facility]2020-12-13 14:16:00 Test Item Value Reference Range Interpretation Comments POCT GLU (test code = 2131660897) 236 mg/dL 70-110 H Lab Interpretation (test code = Abnormal 69606-6) [facility] COVID [id number] 04:58:00COVID DMT InterpretationInterpretation/Recommendations: Molecular NAAT Tests for [...] COVID-19 testing the patient has had at [facility], including molecular NAAT testing (more commonly known as PCR testing and Rapid ID Now testing) and antibody testing. It does not take into account any testing that a patient has had outside of the [facility] medical record. [facility] LABORATORY SERVICESCOVID Resu [id number]-[id number] Rapid ID NOW (no units) ? ? Date ? Value ? 12/11/2020 ? Not Detected ? ? ? 11/16/2020 ? Not Detected ? ? ? 08/21/2020 ?Not Detected ? [facility]UnReg[facility] 2020-12-13 03:11:00 Test Item Value Reference Range Interpretation Comments POCT GLU (test code = 2663391223) 171 mg/dL 70-110 H Lab Interpretation (test code = Abnormal 36731-0) [facility] GLUCOSE (AUTOMATED)2020-12-13 00:00:00 Test Item Value Reference Range Interpretation Comments POCT GLU (test code = 4195687299) 118 mg/dL 70-110 H Lab Interpretation (test code = Abnormal 26974-4) [facility] GLUCOSE (AUTOMATED)2020-12-12 20:29:00 Test Item Value Reference Range Interpretation Comments POCT GLU (test code = 8562748038) 173 mg/dL 70-110 H Lab Interpretation (test code = Abnormal 32121-3) [facility] Hospital[facility] ABDOMEN [id number] 19:56:17 1. ?Hepatic steatosis. However, limited evaluation [...] main portal veinwasevaluated with color Doppler imaging. Seed Tester images were obtainedfor the record. COMPARISON: Ultrasound [...] normal where visualized. SPLEEN:No images were obtained. [facility], Radiant Results Inft User - 12/12/2020 1:57 PM CSTEXAM: US ABDOMEN LIMITEDHISTORY: 70 years-old male with RUQ ultrasound to assess for common bileduct dilation .TECHNIQUE: Limited abdominal ultrasound focused on the liver, biliarysystem, pancreas, and spleen was performed. The main portal vein wasevaluated with color Doppler imaging. Seed Tester images were obtainedfor the record.COMPARISON: Ultrasound abdomen [...] this study and agree with the abovereport. [facility]2020-12-12 19:24:00 Test Item Value Reference Range Interpretation Comments POCT GLU (test code = 8359680957) 230 mg/dL 70-110 H Lab Interpretation (test code = Abnormal 79604-6) [facility] CHEST 1 [id number] 15:16:46 Low lung volumes with mild perihilar [...] have reviewed thisstudy and agree with theabove report.[facility]2020-12-12 14:34:00 Test Item Value Reference Range Interpretation Comments POCT GLU (test code = 0944779210) 225 mg/dL 70-110 H Lab Interpretation (test code = Abnormal 10872-4) [facility] HospitalURINE [id number] 13:28:00 Test Item Value Reference Range Interpretation Comments URINE CULTURE (test < 10,000 CFU/mL mixed code = 630-4) aerobic organisms - suggests endogenous microbial contamination [facility] (NA, K, CL, CO2, GLUCOSE, BUN, CREATININE, CA)2020-12-12 10:05:00 Test Item Value Reference Range Interpretation Comments NA (test code = 136 mmol/L 135-145 1250622330) K (test code = 3.5 mmol/L 3.5-5.0 0237152963) CL (test code = 100 mmol/L 98-108 6277534222) CO2 TOTAL (test code = 31 mmol/L 23-31 0636764579) AGAP (test code = 2-16 2405146125) BUN (test code = 7 mg/dL 7-23 7421788498) GLUCOSE (test code = 259 mg/dL 70-110 H 0706169723) CREATININE (test code = 0.63 mg/dL 0.60-1.25 6120677995) CALCIUM (test code = 8.5 mg/dL 8.6-10.6 L 6820433311) eGFR Calculation mL/min/1.73m2 (Non-) (test code = 8953995794) eGFR Calculation mL/min/1.73m2 () (test code = 9984385236) JAMES (test code = JAMES) Association of [...] tests). Lab Interpretation Abnormal (test code = 83120-1) [facility] HospitalMagnesium [id number] 10:05:00 Test Item Value Reference Range Interpretation Comments MAGNESIUM (test code = 1793817476) 1.9 mg/dL 1.7-2.4 Lab Interpretation (test code = Normal 99141-1) [facility] with [id number] 09:48:00 Test Item Value Reference Range Interpretation Comments WBC (test code = See_Comment [Automated 8433-2) message] The sy stem which generated this result transmitted reference range : 4.20 - 10.70 10*3/?L. The reference range was not used to interpret this result as normal/abnormal . RBC (test code = See_Comment [Automated 013-8) message] The sy stem which generated this [...] RDW-SD (test code = 46.0 fL 38.5-51.6 03147-8) RDW-CV (test code = 16.1 % 12.1-15.4 H 788-0) PLT (test code = See_Comment H [Automated 777-3) message] The sy stem which generated this result transmitted reference range : 150 - 328 10*3/ ?L. The reference r torito was not used to interpret this result as normal/abnormal . MPV (test code = 8.6 fL 9.8-13.0 L 13823-8) NRBC/100 WBC (test See_Comment [Automat ed code = 0346770700) message] The system which generated this result transmitted reference range : 0.0 - 10.0 /100 WBCs. The refer ence range was not u sed to interpret th is result as normal/abnormal . NRBC x10^3 (test code <0.01 See_Comment [Auto mated = 2644551486) message] The s ystem which generated this result transmitted reference range : 10*3/?L. The reference range was not used to interpret this result as normal/abnormal . GRAN MAT (NEUT) % 70.2 % (test code = 770-8) IMM GRAN % (test code 0.30 % = 5014661346) LYMPH % (test code = 18.8 % 736-9) MONO % (test code = 5.0 % 5905-5) EOS % (test code = 5.2 % 713-8) BASO % (test code = 0.5 % 706-2) GRAN MAT x10^3(ANC) 6.05 10*3/uL 1.99-6.95 (test code = 0255513896) IMM GRAN x10^3 (test 0.03 10*3/uL 0.00-0.06 code = 7399756805) LYMPH x10^3 (test code 1.62 10*3/uL 1.09-3.23 = 731-0) MONO x10^3 (test code 0.43 10*3/uL 0.36-1.02 = 742-7) EOS x10^3 (test code = 0.45 10*3/uL 0.06-0.53 711-2) BASO x10^3 (test code 0.04 10*3/uL 0.01-0.09 = 704-7) Lab Interpretation Abnormal (test code = 13921-1) [facility] GLUCOSE (AUTOMATED)2020-12-12 03:42:00 Test Item Value Reference Range Interpretation Comments POCT GLU (test code = 196 mg/dL 70-110 H Notifi ed Provider 0700918581) Lab Interpretation (test Abnormal code = 45694-4) [facility] HospitalFOLATE2021-[facility] 02:24:00 Test Item Value Reference Range Interpretation Comments FOLATE SER (test code = 1778686383) 5.8 ng/mL 3.0-20.0 Lab Interpretation (test code = Normal 77784-8) [facility] HospitalVITAMIN B12, [id number] 00:55:00 Test Item Value Reference Range Interpretation Comments VIT B12 (test code = 844 pg/mL 240-930 5826242834) JAMES (test code = JAMES) Biotin has been reported to cause a positive bias, interpret results relative to patient's use of biotin. Lab Interpretation (test Normal code = 98954-8) [facility] GLUCOSE (AUTOMATED)2020-12-12 00:14:00 Test Item Value Reference Range Interpretation Comments POCT GLU (test code = 9015251174) 164 mg/dL 70-110 H Lab Interpretation (test code = Abnormal 33508-3) [facility] HospitalCREATINE [id number] 23:42:00 Test Item Value Reference Range Interpretation Comments CK (test code = 7512212659) <20 33-194 L Lab Interpretation (test code = Abnormal 26779-0) [facility] HospitalTHYROID STIMULATING [id number] 23:17:00 Test Item Value Reference Range Interpretation Comments TSH (test code = See_Comment Biotin has been 3536983671) reported to cau se a negative bias, interpret resul ts relative to pat ient's use of biotin. [Automated mess age] The system [employer] generated this result transmitted ref erence range: 0.45 - 4 .70 mIU/L. The refe rence range was not u sed to interpret this result as normal/abnor mal. Lab Interpretation (test Normal code = 21015-6) [facility] HospitalXR HIPS 3 VW [id number] 21:41:53No appreciable fracture lines. RL: 6200 ICAL [...] No osseous erosions.IMPRESSIONNo appreciable fracture lines.RL: 6200 [facility] RockPROCALCITONIN2021-03-01 20:00:00 Test Item Value Reference Range Interpretation Comments Procalcitonin (test 0.13 ng/mL <0.07 H code = 1156278773) JAMES (test code = JAMES) INTERPRETATION OF [...] biotics/default.asp Lab Interpretation Abnormal (test code = 07319-7) [facility]2020-12-11 19:07:00 Test Item Value Reference Range Interpretation Comments POCT GLU (test code = 3366832613) 274 mg/dL 70-110 H Lab Interpretation (test code = Abnormal 39363-8) [facility] HospitalMAGNESIUM2021-03-01 18:31:00 Test Item Value Reference Range Interpretation Comments MAGNESIUM (test code = 8000729003) 1.9 mg/dL 1.7-2.4 Lab Interpretation (test code = Normal 75696-3) [facility] HospitalFERRITIN [id number] 18:31:00 Test Item Value Reference Range Interpretation Comments FERRITIN (test code = 178.0 ng/mL 18.0-464.0 1564196951) JAMES (test code = JAMES) Biotin has been reported to cause a negative bias, interpret results relative to patient's use of biotin. Lab Interpretation (test Normal code = 04955-6) [facility] WO [id number] 14:36:47 No acute intracranial abnormality. Dilated ventricles [...] reviewed this study and agree with the abovereport.[facility]UR[facility]IS2021-[facility] 14:28:00 Test Item Value Reference Range Interpretation Comments APPEARANCE (test code = Clear Clear 6778255115) COLOR (test code = Yellow Yellow 5411436072) PH (test code = 4.8-8.0 1469277629) SP GRAVITY (test code = 1.003-1.030 5422649286) GLU U QUAL (test code = 500 mg/dL Normal A 2180732985) BLOOD (test code = Negative Negative 6217594132) KETONES (test code = 5 mg/dL Negative A 7914331495) PROTEIN (test code = Negative Negative 2887-8) UROBILIN (test code = Normal Normal 4430904397) BILIRUBIN (test code = Negative Negative 3363298512) NITRITE (test code = Negative Negative 1259854006) LEUK RYAN (test code = Negative Negative 8790430640) RBC/HPF (test code = See_Comment [Autom ated message] 0910877848) The system [employer] generated this result transmit ronan reference range : 0 - 3 HPF. The refe rence range was not u sed to interpret th is result as normal/abnormal . WBC/HPF (test code = See_Comment [Autom ated message] 7174491909) The system [employer] generated this result transmit ronan reference range : 0 - 5 HPF. The refe rence range was not u sed to interpret th is result as normal/abnormal . BACTERIA (test code = Negative Negative 9445851130) MUCOUS (test code = Slight Negative LPF A 7605437236) SQ EPITH (test code = HPF 7993267185) Lab Interpretation (test Abnormal code = 22441-8) [facility]OVID[facility] (ID NOW RAPID TESTING)2020-12-11 13:10:00 Test Item Value Reference Range Interpretation Comments SARS-CoV-2 Rapid ID NOW Not Detected Not Detected (test code = 36219-5) JAMES (test code = JAMES) ID NOW COVID-19 Assay is an isothermal nucleic acid amplification test intended for the qualitative detection of nucleic acid from SARS-CoV-2 viral RNA in nasopharyngeal (NURSE REVIEWER) specimens. It is used under Emergency Use [...] indicated. Lab Interpretation Normal (test code = 84924-0) [facility]. METABOLIC PANEL (43679)2020-12-11 12:29:00 Test Item Value Reference Range Interpretation Comments NA (test code = 136 mmol/L 135-145 0328433650) K (test code = 3.5 mmol/L 3.5-5.0 4923390516) CL (test code = 95 mmol/L 98-108 L 0790159396) CO2 TOTAL (test code = 35 mmol/L 23-31 H 6056901727) AGAP (test code = 2-16 4432325523) BUN (test code = 9 mg/dL 7-23 3360986988) GLUCOSE (test code = 329 mg/dL 70-110 H 0374912491) CREATININE (test code = 0.72 mg/dL 0.60-1.25 9117838089) TOTAL BILI (test code = 0.6 mg/dL 0.1-1.2 1056751825) CALCIUM (test code = 9.0 mg/dL 8.6-10.6 2216673049) T PROTEIN (test code = 6.8 g/dL 6.3-8.2 8969535603) ALBUMIN (test code = 3.8 g/dL 3.5-5.0 2369340783) ALK PHOS (test code = 288 U/L 34-122 H 3321025201) ALTv (test code = 46 U/L 5-50 2-6) AST(SGOT) (test code = 38 U/L 13-40 5109759199) eGFR Calculation mL/min/1.73m2 (Non-) (test code = 1678896917) eGFR Calculation mL/min/1.73m2 () (test code = 4150689381) JAMES (test code = JAMES) Association of [...] tests). Lab Interpretation Abnormal (test code = 14211-2) [facility] HospitalLactic Acid Whole [id number] 12:23:00 Test Item Value Reference Range Interpretation Comments LACTIC ACID (test code = 2.09 mmol/L 0.50-2.20 5605168735) Lab Interpretation (test code = Normal 13200-7) [facility] HospitalCB WITH [id number] 12:17:00 Test Item Value Reference Range Interpretation [...] RDW-SD (test code = 44.9 fL 38.5-51.6 56319-7) RDW-CV (test code = 15.9 % 12.1-15.4 H 788-0) PLT (test code = See_Comment H [Automated 777-3) message] The sy stem which generated this result transmitted reference range : 150 - 328 10*3/ ?L. The reference r torito was not used to interpret this result as normal/abnormal . MPV (test code = 8.3 fL 9.8-13.0 L 71121-9) NRBC/100 WBC (test See_Comment [Automat ed code = 1935557359) message] The system which generated this result transmitted reference range : 0.0 - 10.0 /100 WBCs. The refer ence range was not u sed to interpret th is result as normal/abnormal . NRBC x10^3 (test code <0.01 See_Comment [Auto mated = 1070003629) message] The s ystem which generated this result transmitted reference range : 10*3/?L. The reference range was not used to interpret this result as normal/abnormal . GRAN MAT (NEUT) % 77.9 % (test code = 770-8) IMM GRAN % (test code 0.50 % = 1273198307) LYMPH % (test code = 12.2 % 736-9) MONO % (test code = 5.2 % 5905-5) EOS % (test code = 3.7 % 713-8) BASO % (test code = 0.5 % 706-2) GRAN MAT x10^3(ANC) 9.57 10*3/uL 1.99-6.95 H (test code = 4614128622) IMM GRAN x10^3 (test 0.06 10*3/uL 0.00-0.06 code = 9204614644) LYMPH x10^3 (test code 1.50 10*3/uL 1.09-3.23 = 731-0) MONO x10^3 (test code 0.64 10*3/uL 0.36-1.02 = 742-7) EOS x10^3 (test code = 0.46 10*3/uL 0.06-0.53 711-2) BASO x10^3 (test code 0.06 10*3/uL 0.01-0.09 = 704-7) Lab Interpretation Abnormal (test code = 82766-1) [facility] HospitalLAB ONLY COVID [id number] 18:43:00COVID DMT InterpretationInterpretation/Recommendations: Molecular NAAT Test Results [...] a nasopharyngeal sample, there is approximately a kob-is-totqh chance that the patient was infected and [...] aggregate data pooled from the [facility] medical record including both current and prior COVID-19 related testing results for the following tests offered at our institution:A. Tests for the Identification of SARS-CoV-2 RNA:SARS-CoV-2 PCR assays including [place] Aptima, [place] Fusion, Barrett RealTime, and Nexio Xpert Xpress. SARS-CoV-2 Rapid ID NOW by the ID NOW assay. ? B. Tests for the Identification of SARS-CoV-2 Antibodies: Chemiluminescent immunoassays including Access SARS-CoV-2 IgM (DXI 600), Spectrum MobileS Oheq-GDNQ-UeX-2 IgG (Vitros 5600 and Vitros 3600), and Barrett SARS-CoV-2 IgG (STOVE MOUNTER I System). These interpretation comments assume that only the above testing was utilized and that the approved acceptable specimen type(s) were used for a given test. These interpretations are autopopulated into [employer] based on computerized algorithms matching an interpretation code number to the patient's set of test results. While a clinical pathologist evaluates the combinations for clinical accuracy, clinical correlation is recommended as it may not take into account very remote prior testing. Furthermore, it does not consider testing a patient may have had outside of the [facility] system. Additionally, it should be noted that the computerized algorithm treats the results for PCR testing and Rapid ID NOW testing (also PCR) synonymously, and thus, refers to both testing methodologies as PCR tests. Given that the sensitivity of [facility]'s Rapid ID NOW testingplatform is [...] panel may be beneficial in this setting. [facility] LABORATORY SERVICESCOVID MzcgvsnCVXO-NxJ-3 Rapid ID NOW (no units) ? ? Date ? Value ? 08/21/2020 ? Not Detected ? [facility] SERVICESUnReg[facility] (AUTOMATED)2020-08-23 18:25:00 Test Item Value Reference Range Interpretation Comments POCT GLU (test code = 5709466611) 297 mg/dL 70-110 H Lab Interpretation (test code = Abnormal 75713-1) [facility] GLUCOSE (AUTOMATED)2020-08-23 14:25:00 Test Item Value Reference Range Interpretation Comments POCT GLU (test code = 8970994583) 181 mg/dL 70-110 H Lab Interpretation (test code = Abnormal 39439-0) [facility] HospitalBasic Metabolic Panel (NA, K, CL, CO2, GLUCOSE, BUN, CREATININE, CA)2020-08-23 11:45:00 Test Item Value Reference Range Interpretation Comments NA (test code = 132 mmol/L 135-145 L 6657284950) K (test code = 4.0 mmol/L 3.5-5 9904388555) CL (test code = 96 mmol/L 98-108 L 3960306346) CO2 TOTAL (test code = 33 mmol/L 23-31 H 6173013227) AGAP (test code = 2-16 8183014499) BUN (test code = 9 mg/dL 7-23 9036958311) GLUCOSE (test code = 176 mg/dL 70-110 H 9240313814) CREATININE (test code = 0.66 mg/dL 0.6-1.25 6469482101) CALCIUM (test code = 8.5 mg/dL 8.6-10.6 L 6363395457) eGFR Calculation mL/min/1.73m2 (Non-) (test code = 8811651741) eGFR Calculation mL/min/1.73m2 () (test code = 4837491932) JAMES (test code = JAMES) Association of [...] tests). Lab Interpretation Abnormal (test code = 02478-1) [facility] HospitalMagnesium [id number] 11:45:00 Test Item Value Reference Range Interpretation Comments MAGNESIUM (test code = 3735878721) 2.0 mg/dL 1.7-2.4 Lab Interpretation (test code = Normal 77140-3) [facility] HospitalCB with Sqrnbfcljhwm4652-98-66 11:38:00 Test Item Value Reference Range Interpretation [...] RDW-SD (test code = 41.8 fL 38.5-51.6 74021-8) RDW-CV (test code = 14.3 % 12.1-15.4 788-0) PLT (test code = See_Comment H [Automated 777-3) message] The sy stem which generated this result transmitted reference range : 150 - 328 10*3/ ?L. The reference r torito was not used to interpret this result as normal/abnormal . MPV (test code = 8.0 fL 9.8-13 L 74218-4) NRBC/100 WBC (test See_Comment [Automat ed code = 0697606888) message] The system which generated this result transmitted reference range : 0.0 - 10.0 /100 WBCs. The refer ence range was not u sed to interpret th is result as normal/abnormal . NRBC x10^3 (test code <0.01 See_Comment [Auto mated = 1362251818) message] The s ystem which generated this result transmitted reference range : 10*3/?L. The reference range was not used to interpret this result as normal/abnormal . GRAN MAT (NEUT) % 61.5 % (test code = 770-8) IMM GRAN % (test code 2.00 % = 8970520331) LYMPH % (test code = 25.5 % 736-9) MONO % (test code = 6.3 % 5905-5) EOS % (test code = 3.7 % 713-8) BASO % (test code = 1.0 % 706-2) GRAN MAT x10^3(ANC) 5.29 10*3/uL 1.99-6.95 (test code = 7245567286) IMM GRAN x10^3 (test 0.17 10*3/uL 0-0.06 H code = 0228580615) LYMPH x10^3 (test code 2.19 10*3/uL 1.09-3.23 = 731-0) MONO x10^3 (test code 0.54 10*3/uL 0.36-1.02 = 742-7) EOS x10^3 (test code = 0.32 10*3/uL 0.06-0.53 711-2) BASO x10^3 (test code 0.09 10*3/uL 0.01-0.09 = 704-7) Lab Interpretation Abnormal (test code = 05500-2) [facility] GLUCOSE (AUTOMATED)2020-08-23 10:22:00 Test Item Value Reference Range Interpretation Comments POCT GLU (test code = 5122687575) 164 mg/dL 70-110 H Lab Interpretation (test code = Abnormal 56691-5) [facility] GLUCOSE (AUTOMATED)2020-08-23 05:56:00 Test Item Value Reference Range Interpretation Comments POCT GLU (test code = 7517830302) 242 mg/dL 70-110 H Lab Interpretation (test code = Abnormal 35038-5) [facility] GLUCOSE (AUTOMATED)2020-08-23 03:02:00 Test Item Value Reference Range Interpretation Comments POCT GLU (test code = 9014263971) 210 mg/dL 70-110 H Lab Interpretation (test code = Abnormal 61723-6) [facility] GLUCOSE (AUTOMATED)2020-08-22 23:40:00 Test Item Value Reference Range Interpretation Comments POCT GLU (test code = 8266939421) 267 mg/dL 70-110 H Lab Interpretation (test code = Abnormal 22721-9) [facility] GLUCOSE (AUTOMATED)2020-08-22 19:08:00 Test Item Value Reference Range Interpretation Comments POCT GLU (test code = 2455827082) 191 mg/dL 70-110 H Lab Interpretation (test code = Abnormal 42769-1) [facility] GLUCOSE (AUTOMATED)2020-08-22 13:50:00 Test Item Value Reference Range Interpretation Comments POCT GLU (test code = 2583231029) 174 mg/dL 70-110 H Lab Interpretation (test code = Abnormal 99763-1) [facility] HospitalURINE [id number] 12:59:00 Test Item Value Reference Range Interpretation Comments URINE CULTURE (test No aerobic growth (< code = 630-4) 1000 CFU/mL) [facility] with Tbmnprpobulp3945-81-22 11:28:00 Test Item Value Reference Range Interpretation Comments WBC (test code = See_Comment [Automated 6690-2) message] The sy stem which generated this result transmitted reference range : 4.20 - 10.70 10*3/?L. The reference range was not used to interpret this result as normal/abnormal . RBC (test code = See_Comment L [Automated 839-8) message] The sy stem which generated this [...] RDW-SD (test code = 42.5 fL 38.5-51.6 82349-3) RDW-CV (test code = 14.5 % 12.1-15.4 788-0) PLT (test code = See_Comment H [Automated 777-3) message] The sy stem which generated this result transmitted reference range : 150 - 328 10*3/ ?L. The reference r torito was not used to interpret this result as normal/abnormal . MPV (test code = 8.0 fL 9.8-13 L 36015-2) NRBC/100 WBC (test See_Comment [Automat ed code = 6152604304) message] The system which generated this result transmitted reference range : 0.0 - 10.0 /100 WBCs. The refer ence range was not u sed to interpret th is result as normal/abnormal . NRBC x10^3 (test code <0.01 See_Comment [Auto mated = 7045896981) message] The s ystem which generated this result transmitted reference range : 10*3/?L. The reference range was not used to interpret this result as normal/abnormal . GRAN MAT (NEUT) % 69.1 % (test code = 770-8) IMM GRAN % (test code 2.20 % = 8293086989) LYMPH % (test code = 20.9 % 736-9) MONO % (test code = 5.8 % 5905-5) EOS % (test code = 1.0 % 713-8) BASO % (test code = 1.0 % 706-2) GRAN MAT x10^3(ANC) 6.51 10*3/uL 1.99-6.95 (test code = 6244359414) IMM GRAN x10^3 (test 0.21 10*3/uL 0-0.06 H code = 8656357539) LYMPH x10^3 (test code 1.97 10*3/uL 1.09-3.23 = 731-0) MONO x10^3 (test code 0.55 10*3/uL 0.36-1.02 = 742-7) EOS x10^3 (test code = 0.09 10*3/uL 0.06-0.53 711-2) BASO x10^3 (test code 0.09 10*3/uL 0.01-0.09 = 704-7) BASO STIPPLING (test Present A code = 703-9) BANDS (test code = Increased A 1488287399) TOXIC CHANGES (test Present A code = 803-7) Lab Interpretation Abnormal (test code = 67450-0) [facility] Metabolic Panel (NA, K, CL, CO2, GLUCOSE, BUN, CREATININE, CA)2020-08-22 11:12:00 Test Item Value Reference Range Interpretation Comments NA (test code = 135 mmol/L 135-145 8729661250) K (test code = 3.6 mmol/L 3.5-5 4915414076) CL (test code = 99 mmol/L 98-108 8943204350) CO2 TOTAL (test code = 31 mmol/L 23-31 6089093517) AGAP (test code = 2-16 4572233544) BUN (test code = 9 mg/dL 7-23 6517717532) GLUCOSE (test code = 198 mg/dL 70-110 H 1631939664) CREATININE (test code = 0.72 mg/dL 0.6-1.25 5599016130) CALCIUM (test code = 8.3 mg/dL 8.6-10.6 L 8424939799) eGFR Calculation mL/min/1.73m2 (Non-) (test code = 1139583185) eGFR Calculation mL/min/1.73m2 () (test code = 1113618519) JAMES (test code = JAMES) Association of [...] tests). Lab Interpretation Abnormal (test code = 56932-2) [facility] HospitalMagnesium Ksegy6728-22-11 11:12:00 Test Item Value Reference Range Interpretation Comments MAGNESIUM (test code = 8587460187) 2.0 mg/dL 1.7-2.4 Lab Interpretation (test code = Normal 99165-7) [facility] HospitalLipid Panel (Total Cholesterol, Triglycerides, HDL) - [id number] 11:12:00 Test Item Value Reference Range Interpretation Comments CHOL (test code = 155 mg/dL 120-200 1508514632) HDL (test code = 42 mg/dL >40 2917038462) HDLC RATIO (test code = See_Comment [Au tomated message] 2245442900) The system [employer] generated this result transmit ronan reference range : <=5.0. The refe rence range was not u sed to interpret th is result as normal/abnormal . TRIG (test code = 186 mg/dL 30-170 H 7507311999) LDL CHOL (test code = 76 mg/dL See_Comment [Auto mated message] 29099-1) The system [employer] generated this result transmit ronan reference range : <=160. The refe rence range was not u sed to interpret th is result as normal/abnormal . VLDL (test code = 37 mg/dL 5-60 2682987580) Lab Interpretation (test Abnormal code = 92945-8) [facility] HospitalHEPATIC FUNCTION PANEL (80136) (ALB,T.PRO,BILI T,BU/BC,ALT,AST,ALK PHOS)2020-08-22 11:12:00 Test Item Value Reference Range Interpretation Comments TOTAL BILI (test code = 1437778051) 0.6 mg/dL 0.1-1.1 BILI UNCON (test code = 6135851811) 0.2 mg/dL 0.1-1.1 BILI CONJ (test code = 6883403446) 0.0 mg/dL 0-0.3 T PROTEIN (test code = 5247169856) 6.0 g/dL 6.3-8.2 L ALBUMIN (test code = 1333951905) 2.8 g/dL 3.5-5 L ALK PHOS (test code = 0599529698) 222 U/L 34-122 H ALTv (test code = 1742-6) 27 U/L 5-50 AST(SGOT) (test code = 1653472591) 30 U/L 13-40 Lab Interpretation (test code = Abnormal 89084-4) [facility] GLUCOSE (AUTOMATED)2020-08-22 10:11:00 Test Item Value Reference Range Interpretation Comments POCT GLU (test code = 2119525467) 196 mg/dL 70-110 H Lab Interpretation (test code = Abnormal 20067-9) [facility] GLUCOSE (AUTOMATED)2020-08-22 07:15:00 Test Item Value Reference Range Interpretation Comments POCT GLU (test code = 3833138318) 183 mg/dL 70-110 H Lab Interpretation (test code = Abnormal 80726-1) [facility] GLUCOSE (AUTOMATED)2020-08-22 02:30:00 Test Item Value Reference Range Interpretation Comments POCT GLU (test code = 5206528492) 295 mg/dL 70-110 H Lab Interpretation (test code = Abnormal 88049-0) [facility] GLUCOSE (AUTOMATED)2020-08-21 23:46:00 Test Item Value Reference Range Interpretation Comments POCT GLU (test code = 0757005118) 258 mg/dL 70-110 H Lab Interpretation (test code = Abnormal 32387-9) [facility] HospitalC-REACTIVE [id number] 18:50:00 Test Item Value Reference Range Interpretation Comments CRP (test code = 7661093014) 15.5 mg/dL <0.8 H Lab Interpretation (test code = Abnormal 36670-7) [facility])2020-08-21 18:21:00 Test Item Value Reference Range Interpretation Comments POCT GLU (test code = 1388873570) 297 mg/dL 70-110 H Lab Interpretation (test code = Abnormal 35899-8) [facility] HospitalETHANOL2020-11-09 16:24:00 Test Item Value Reference Range Interpretation Comments ALCOHOL (test code = <10 mg/dL 3168721282) JAMES (test code = Toxic Greater than or JAMES) equal to 80 mg/dL. NOTE: Whole blood values are approximately 10% to 15% lower than serum and plasma. [facility] HospitalGAL/CLC ONLY - URINE DRUG (IMMUNOASSAY) - 4 ER [id number] 15:36:00 Test Item Value Reference Range Interpretation Comments AMPHET (test code = Negative Negative 3096615859) Cocaine Metabolite (test Negative Negative code = 1299359369) OPIATES (test code = Presumptive Positive Negative A 7597061975) THC (test code = Negative Negative 4085971397) JAMES (test code = JAMES) Urine Drug Cutoff Ranges Amphetamine: ? 1,000 ng/mLCocaine: ? 150 ng/mLOpiates: ? 300 ng/mLCannabinoids: ?50 ng/mL The results are to be used only for medical (i.e., treatment) purposes. Unconfirmed screening results must not be used for non-medical purposes (e.g., employment testing, legal testing). Lab Interpretation (test Abnormal code = 19797-1) [facility] ONLY - SYPHILIS IGG/[id number] 15:04:00 Test Item Value Reference Range Interpretation Comments Syphilis IgG/IgM (test Non-reactive Non-reactive code = 35093-1) JAMES (test code = JAMES) Non-reactive - No serologic evidence of T. pallidum infection. Cannot exclude incubating or early syphilis. Submit a second specimen in 2-4 weeks if syphilis is clinically suspected. Equivocal - Further testing to follow. Reactive - Further testing to follow. Lab Interpretation (test Normal code = 06972-8) [facility] HospitalUrinalysis2020-11-09 14:52:00 Test Item Value Reference Range Interpretation Comments APPEARANCE (test code = Clear Clear 4976232876) COLOR (test code = Yellow Yellow 9831483241) PH (test code = 4.8-8.0 7641860784) SP GRAVITY (test code = 1.003-1.030 8337678364) GLU U QUAL (test code = 500 mg/dL Normal A 2824497666) BLOOD (test code = Negative Negative 3064326177) KETONES (test code = 20 mg/dL Negative A 3677707532) PROTEIN (test code = Negative Negative 2887-8) UROBILIN (test code = Normal Normal 2739127577) BILIRUBIN (test code = Negative Negative 9468916601) NITRITE (test code = Negative Negative 6073159554) LEUK RYAN (test code = Negative Negative 9812585716) RBC/HPF (test code = <1 See_Comment [Autom ated message] 6420074592) The system [employer] generated this result transmit ronan reference range : 0 - 3 HPF. The refe rence range was not u sed to interpret th is result as normal/abnormal . WBC/HPF (test code = See_Comment [Autom ated message] 7683130447) The system [employer] generated this result transmit ronan reference range : 0 - 5 HPF. The refe rence range was not u sed to interpret th is result as normal/abnormal . BACTERIA (test code = Negative Negative 2803635386) MUCOUS (test code = Slight Negative LPF A 3386036884) Lab Interpretation (test Abnormal code = 37889-5) [facility] HospitalACTIVATED PARTIAL THRMPLAS [id number] 13:45:00 Test Item Value Reference Range Interpretation Comments APTT Patient (test code = See_Comment [ Automated message] 3173-2) The system [employer] generated this result transmitted ref erence range: 26 - 36 Seconds. The re ference range was not u sed to interpret this result as normal/abnor mal. Lab Interpretation (test Normal code = 64512-1) [facility] HospitalPO[facility] (AUT[facility])2020-08-21 13:45:00 Test Item Value Reference Range Interpretation Comments POCT GLU (test code = 8337083814) 246 mg/dL 70-110 H Lab Interpretation (test code = Abnormal 61150-0) [facility] HospitalHIV 1/2 AG-AB WITH [id number] 12:32:00 Test Item Value Reference Range Interpretation Comments HIV Negative Negative Semi-quantitative (test code = 73790-1) JAMES (test code = Non-reactive for HIV-1 JAMES) antigen and HIV-1/HIV-2 antibodies. ?No laboratory evidence of HIV infection. ?Repeat in 2-4 weeks if acute HIV infection is suspected. [facility] WITH [id number] 12:18:00 Test Item Value Reference Range Interpretation Comments WBC (test code = See_Comment [Automated 3690-2) message] The sy stem which generated this [...] RDW-SD (test code = 44.4 fL 38.5-51.6 93422-8) RDW-CV (test code = 14.5 % 12.1-15.4 788-0) PLT (test code = See_Comment H [Automated 777-3) message] The sy stem which generated this result transmitted reference range : 150 - 328 10*3/ ?L. The reference r torito was not used to interpret this result as normal/abnormal . MPV (test code = 8.5 fL 9.8-13 L 01686-5) NRBC/100 WBC (test See_Comment [Automat ed code = 9453064907) message] The system which generated this result transmitted reference range : 0.0 - 10.0 /100 WBCs. The refer ence range was not u sed to interpret th is result as normal/abnormal . NRBC x10^3 (test code <0.01 See_Comment [Auto mated = 1671802438) message] The s ystem which generated this result transmitted reference range : 10*3/?L. The reference range was not used to interpret this result as normal/abnormal . GRAN MAT (NEUT) % 90.4 % (test code = 770-8) IMM GRAN % (test code 1.30 % = 5328168563) LYMPH % (test code = 7.1 % 736-9) MONO % (test code = 0.5 % 5905-5) EOS % (test code = 0.1 % 713-8) BASO % (test code = 0.6 % 706-2) GRAN MAT x10^3(ANC) 7.74 10*3/uL 1.99-6.95 H (test code = 8305375550) IMM GRAN x10^3 (test 0.11 10*3/uL 0-0.06 H code = 1705936269) LYMPH x10^3 (test code 0.61 10*3/uL 1.09-3.23 L = 731-0) MONO x10^3 (test code 0.04 10*3/uL 0.36-1.02 L = 742-7) EOS x10^3 (test code = <0.03 0.06-0.53 L 711-2) BASO x10^3 (test code 0.05 10*3/uL 0.01-0.09 = 704-7) POLYCHROMASIA (test 2+ See_Comment [Automa ronan code = 03766-3) message] The system which generated this result transmitted reference range : 2+. The referen ce range was not u sed to interpret th is result as normal/abnormal . BANDS (test code = Increased A 5425541613) Lab Interpretation Abnormal (test code = 68415-5) [facility] HospitalPROCALCITONIN2020-11-09 11:48:00 Test Item Value Reference Range Interpretation Comments Procalcitonin (test 0.36 ng/mL <0.07 H code = 2512418755) JAMES (test code = JAMES) INTERPRETATION OF [...] biotics/default.asp Lab Interpretation Abnormal (test code = 73240-3) [facility] HospitalLAKYATE [id number] 10:53:00 Test Item Value Reference Range Interpretation Comments LDH (test code = 5625804285) 351 U/L 300-600 Lab Interpretation (test code = Normal 12088-6) [facility] HospitalSEDIMENTATION [id number] 10:07:00 Test Item Value Reference Range Interpretation Comments ESR (test code = See_Comment H [Automated message] 4432114740) The system [employer] generated this result transmitted ref erence range: 0 - 10 m m/HR. The reference r torito was not used to interpret this result as normal/abnor mal. Lab Interpretation (test Abnormal code = 26223-6) [facility] (AUTOMATED)2020-08-21 09:45:00 Test Item Value Reference Range Interpretation Comments POCT GLU (test code = 5067355608) 287 mg/dL 70-110 H Lab Interpretation (test code = Abnormal 03091-6) [facility] HospitalGlycosylated Hemoglobin (A1C)2020-08-21 09:29:00 Test Item Value Reference Range Interpretation Comments HGB A1C (test code = 4548-4) 9.8 % 4-6 H Lab Interpretation (test code = Abnormal 39898-2) [facility] HospitalCOVID-19 (ID NOW RAPID TESTING)2020-08-21 09:13:00 Test Item Value Reference Range Interpretation Comments SARS-CoV-2 Rapid ID NOW Not Detected Not Detected (test code = 45008-5) JAMES (test code = JAMES) ID NOW COVID-19 Assay is an isothermal nucleic acid amplification test intended for the qualitative detection of nucleic acid from SARS-CoV-2 viral RNA in nasopharyngeal (NURSE REVIEWER) specimens. It is used under Emergency Use [...] indicated. Lab Interpretation Normal (test code = 70995-9) [facility] HospitalProthrombin Time / [id number] 08:59:00 Test Item Value Reference Range Interpretation Comments PROTIME PATIENT (test See_Comment H [Auto mated message] code = 5964-2) The system [employer] generated this result transmitted ref erence range: 10.1 - 1 2.6 Seconds. The reference range was not used to int erpret this result as normal/abnormal . INR (test code = 6301-6) Nor mal INR <1.1; Warfarin Therap eutic range 2.0 to 3. 0 or 2.5 to 3.5, dep ending upon the indica tions. Lab Interpretation (test Abnormal code = 78646-9) [facility] HospitalaPTT2020-11-09 08:59:00 Test Item Value Reference Range Interpretation Comments APTT Patient (test code = See_Comment [ Automated message] 3173-2) The system [employer] generated this result transmitted ref erence range: 26 - 36 Seconds. The re ference range was not u sed to interpret this result as normal/abnor mal. Lab Interpretation (test Normal code = 88426-4) [facility] HospitalBASI METABOLIC PANEL (NA, K, CL, CO2, GLUCOSE, BUN, CREATININE, CA)2020-08-21 08:52:00 Test Item Value Reference Range Interpretation Comments NA (test code = 136 mmol/L 135-145 1884022027) K (test code = 4.3 mmol/L 3.5-5 0718690903) CL (test code = 104 mmol/L 98-108 6554437405) CO2 TOTAL (test code = 24 mmol/L 23-31 1145660689) AGAP (test code = 2-16 8323994655) BUN (test code = 8 mg/dL 7-23 1192003754) GLUCOSE (test code = 308 mg/dL 70-110 H 2372403693) CREATININE (test code = 0.72 mg/dL 0.6-1.25 4250303260) CALCIUM (test code = 7.8 mg/dL 8.6-10.6 L 3512259930) eGFR Calculation mL/min/1.73m2 (Non-) (test code = 3777907749) eGFR Calculation mL/min/1.73m2 () (test code = 6831575104) JAMES (test code = JAMES) Association of [...] tests). Lab Interpretation Abnormal (test code = 38453-1) [facility] HospitalHEPATIC FUNCTION PANEL (73271) (ALB,T.PRO,BILI T,BU/BC,ALT,AST,ALK PHOS)2020-08-21 08:52:00 Test Item Value Reference Range Interpretation Comments TOTAL BILI (test code = 9627343633) 0.8 mg/dL 0.1-1.1 BILI UNCON (test code = 8345784345) 0.3 mg/dL 0.1-1.1 BILI CONJ (test code = 9436430683) 0.0 mg/dL 0-0.3 T PROTEIN (test code = 3287736912) 5.7 g/dL 6.3-8.2 L ALBUMIN (test code = 3985347049) 2.7 g/dL 3.5-5 L ALK PHOS (test code = 2401307586) 245 U/L 34-122 H ALTv (test code = 1742-6) 37 U/L 5-50 AST(SGOT) (test code = 2257808553) 43 U/L 13-40 H Lab Interpretation (test code = Abnormal 44939-7) [facility]
[2021-11-16] MEDS ORDERED: HYDROMORPHONE HCL 1 MG/ML INJ ONE (07:17)
--- NOTE | 2021-11-16 07:37 | EDPHYS ---
Physician Documentation [facility] Name: Kiel Ngo Age: 71 yrs Sex: Male : 1950 Arrival Date: 11/16/2021 Time: 06:41 Bed 15 Private MD: ED Physician Rosa Harrison HPI: 11/16 06:53 This 71 yrs old Male presents to ER via EMS with complaints of Leg Pain. pm1 06:53 The patient presents with pain, that is chronic. The complaints affect the Right hip pm1 and right leg. Context: the patient is not able to ambulate. Onset: The symptoms/episode began/occurred Present for many years. Worse the past 1 year since his pain pump has not been working as of October 2020. Patient was supposed to get the pain pump replaced in September 2021 but his out of pocket cost would have been $3000 and he is trying to refinance his house. Currently under the care of Dr. Alonso for pain management. He is currently taking Tylenol for pain. 06:53 Modifying factors: The symptoms are alleviated by Lack of prescribed pain medications. pm1 Associated signs and symptoms: Pertinent negatives calf tenderness, fever, numbness, tingling. Treatment prior to arrival includes: no previous treatment. Severity of symptoms: in the emergency department the symptoms are unchanged. The patient has experienced similar episodes in the past, chronically. The patient has been recently seen at the [facility] Emergency Department, yesterday, for similar complaints given pain medications in the ER. Historical: - Allergies: 06:44 Demerol; bb 06:44 metformin; bb 06:44 Morphine; bb - PMHx: 06:44 chronic back pain; neuropathy; bb - PSHx: 06:44 back sx; bb - Immunization history:: Adult Immunizations unknown, Client reports having NOT received the Covid vaccine. - Social history:: Smoking status: unknown. ROS: 06:53 Constitutional: Negative for fever, chills, and weight loss, Cardiovascular: Negative pm1 for chest pain, palpitations, and edema, Respiratory: Negative for shortness of breath, cough, wheezing, and pleuritic chest pain, Abdomen/GI: Negative for abdominal pain, nausea, vomiting, diarrhea, and constipation, Back: Negative for injury and pain. 06:53 Skin: Negative for injury, rash, and discoloration. 06:53 MS/extremity: Positive for pain, of the right hip area with radiation to right us, Negative for paresthesias. 06:53 All other systems are negative. Exam: 06:53 Constitutional: This is a well developed, well nourished patient who is awake, alert, pm1 and in no acute distress. Head/Face: Normocephalic, atraumatic. 06:53 Skin: Warm, dry with normal turgor. Normal color with no rashes, no lesions, and no evidence of cellulitis. 06:53 Cardiovascular: Exam negative for acute changes, Rate: normal, Rhythm: regular, Pulses: no pulse deficits are appreciated, Edema: is not appreciated. 06:53 Respiratory: Exam negative for acute changes, respiratory distress, shortness of breath. 06:53 Musculoskeletal/extremity: Exam is negative for acute changes, Extremities: all appear grossly normal, with no appreciated pain with palpation, Circulation is intact in all extremities. the right leg and left leg Sensation intact. Calves: are non-tender. 06:53 Neuro: Exam negative for acute changes, Orientation: is normal, Mentation: is normal. Vital Signs: 06:42 BP 146 / 96; Pulse 99; Resp 16 S; Temp 97.7(O); Pulse Ox 99% on R/A; Weight 83.91 kg bb (R); Height 5 ft. 11 in. (180.34 cm) (R); Pain 10/10; 07:26 BP 150 / 86; Pulse 95; Resp 18; Pulse Ox 96% on R/A; ll3 06:42 Body Mass Index 25.80 (83.91 kg, 180.34 cm) bb MDM: 06:53 Patient medically screened. pm1 07:06 Data reviewed: vital signs. Data interpreted: Pulse oximetry: on room air is 99 %. pm1 Interpretation: normal. 07:35 Counseling: I had a detailed discussion with the patient and/or guardian regarding: the pm1 historical points, exam findings, and any diagnostic results supporting the discharge/admit diagnosis, the need for outpatient follow up, a painter set, PCP, to return to the emergency department if symptoms worsen or persist or if there are any questions or concerns that arise at home. Administered Medications: 07:25 Drug: Dilaudid (HYDROmorphone) 1 mg Route: IM; Site: right deltoid; ll3 Disposition Summary: 11/16/21 07:36 Discharge Ordered Location: Home pm1 Problem: chronic pm1 Symptoms: have improved pm1 Condition: Stable pm1 Diagnosis - Other chronic pain pm1 Followup: pm1 - With: Emergency Department - When: As needed - Reason: Worsening of condition Followup: pm1 - With: Madhu Francois DO - When: 2 - 3 days - Reason: Recheck today's complaints, Continuance of care, Re-evaluation by your physician Followup: pm1 - With: Isai Snow MD - When: 2 - 3 days - Reason: Recheck today's complaints, Continuance of care, Re-evaluation by your physician Discharge Instructions: - Discharge Summary Sheet pm1 - Chronic Pain, Adult pm1 Forms: - Medication Reconciliation Form pm1 - Thank You Letter pm1 - Antibiotic Education pm1 - Prescription Opioid Use pm1 Addendum: 11/17/2021 16:10 Co-signature as Attending Physician, Rosa Harrison MD I agree with the assessment and s p3 plan of care. Signatures: Elvia Lugo, RN RN bb Tay Olsen, CIRCULAR KNIFE CUTTER MACHINE CIRCULAR KNIFE CUTTER MACHINE pm1 Rosa Harrison MD MD sp3 Katie Shi RN RN ll3
--- NOTE | 2021-11-16 07:37 | ER ---
Nurse's Notes [facility] Name: Kiel Ngo Age: 71 yrs Sex: Male : 1950 Arrival Date: 11/16/2021 Time: 06:41 Bed 15 Private MD: Diagnosis: Other chronic pain Presentation: 11/16 06:42 Chief complaint: EMS states: they were toned out for report of pt with leg pain pt has bb chronic leg pain was seen here yesterday for the same thing pt states he has a pain pump but it broke last year and he has not been able to get it replaced yet. Coronavirus screen: At this time, the client does not indicate any symptoms associated with coronavirus-19. Ebola Screen: No symptoms or risks identified at this time. Initial Sepsis Screen: Does the patient meet any 2 criteria? No. Patient's initial sepsis screen is negative. Does the patient have a suspected source of infection? No. Patient's initial sepsis screen is negative. Risk Assessment: Do you want to hurt yourself or someone else? Patient reports no desire to harm self or others. Onset of symptoms. 06:42 Method Of Arrival: EMS: [facility] 06:42 Acuity: JOZEF 4 bb Triage Assessment: 06:59 General: Appears in no apparent distress. uncomfortable, Behavior is calm, cooperative. ll3 Pain: Complains of pain in right femoral area Pain radiates to right leg. Neuro: Level of Consciousness is awake, alert, obeys commands, Oriented to person, place, time, situation, Gait is unsteady, Speech is normal. Cardiovascular: Patient's skin is warm and dry. Respiratory: Respiratory effort is even, unlabored, Respiratory pattern is regular, symmetrical. Derm: Skin is pink, warm \T\ dry. Bruising that is on right us. Musculoskeletal:. Historical: - Allergies: 06:44 Demerol; bb 06:44 metformin; bb 06:44 Morphine; bb - PMHx: 06:44 chronic back pain; neuropathy; bb - PSHx: 06:44 back sx; bb - Immunization history:: Adult Immunizations unknown, Client reports having NOT received the Covid vaccine. - Social history:: Smoking status: unknown. Screenin:59 Abuse screen: Denies threats or abuse. Nutritional screening: No deficits noted. ll3 Tuberculosis screening: No symptoms or risk factors identified. Fall Risk Ambulatory Aid- None/Bed Rest/Nurse Assist (0 pts). Gait- Impaired (20 pts.). Mental Status- Oriented to own ability (0 pts). Total Chow Fall Scale indicates No Risk (0-24 pts). Assessment: 06:58 General: See triage assessment. ll3 07:27 Pain: Complains of pain in right leg. Neuro: Level of Consciousness is awake, alert, ll3 obeys commands, Oriented to person, place, situation. Cardiovascular: Denies chest pain. Respiratory: Denies cough, shortness of breath. GI: No deficits noted. : No deficits noted. EENT: No deficits noted. Derm: No deficits noted. Musculoskeletal: No deficits noted. 07:34 Reassessment: Patient appears in no apparent distress at this time. Received pt while ic1 in bed resting. Denies c/o at this time. Vital Signs: 06:42 BP 146 / 96; Pulse 99; Resp 16 S; Temp 97.7(O); Pulse Ox 99% on R/A; Weight 83.91 kg bb (R); Height 5 ft. 11 in. (180.34 cm) (R); Pain 10/10; 07:26 BP 150 / 86; Pulse 95; Resp 18; Pulse Ox 96% on R/A; ll3 06:42 Body Mass Index 25.80 (83.91 kg, 180.34 cm) ED Course: 06:41 Patient arrived in ED. bb 06:42 Tay Olsen NP is PHCP. pm1 06:42 Rosa Harirson MD is Attending Physician. pm1 06:44 Triage completed. bb 06:44 Arm band placed on Patient placed in an exam room, on a stretcher, on bonded structures repairer, bb on pulse oximetry. 07:01 Patient has correct armband on for positive identification. Bed in low position. Call ll3 light in reach. Side rails up X 1. 07:26 Door closed. Noise minimized. Warm blanket given. ll3 07:34 Deisy Navarro, DIEGO is Primary Nurse. ic1 07:35 Madhu Francois DO is Referral Physician. pm1 07:36 Isai Snow MD is Referral Physician. pm1 08:10 IV discontinued, intact, bleeding controlled, No redness/swelling at site. Pressure ic1 dressing applied. Administered Medications: 07:25 Drug: Dilaudid (HYDROmorphone) 1 mg Route: IM; Site: right deltoid; ll3 Outcome: 07:36 Discharge ordered by MD. pm1 07:59 Discharged to home via ambulance. ic1 07:59 Condition: stable 07:59 Discharge instructions given to patient, EMS, Instructed on discharge instructions, follow up and referral plans. Demonstrated understanding of instructions, follow-up care. 08:11 Patient left the ED. ic1 Signatures: Elvia Lugo RN RN bb Tay Olsen NP SEAMSTRESS FITTER pm1 Katie Shi RN RN ll3 Deisy Navarro RN RN ic1 Corrections: (The following items were deleted from the chart) 07:33 07:26 Inserted saline lock: 20 gauge in right antecubital area, using aseptic ll3 technique. ll3
[2021-11-16 08:17] VITALS: TEMP 97.7
[2021-11-16 08:19] VITALS: BP 150/86; O2SAT 96
== END 2021-11-16 08:11 | disposition home or self-care (01) ==
LOC: ER 06:35
DX: G89.29 Other chronic pain (principal); Z88.5 Allergy status to narcotic agent; Z88.8 Allergy status to other drugs, medicaments and biological substances
CPT/HCPCS: 96372; 99283; J1170

== ENCOUNTER 2021-11-16 16:53 | Emergency (ER) | payer OTHER ==
--- OUTSIDE RECORDS SUMMARY | 2021-11-16 17:02 | XMS REPORT | Continuity of Care Document ---
:[address] [facility] t Address [address] [place] [address] Dr. Mot[address] [place] [id number] Care Team Providers Name Role Phone Edy [...] Expiration Date S ource MEDICARE PART A [id number] 2007 \\T\\ B 00:00:00 [employer] INDEMNITY [id number] 2016 00:00:00 MEDICARE PART A [id number] 2014 \\T\\ B - MEDICARE 00:00:00 INDEMNITY/TRADITIO [id number] [id number] NAL CHOICE - [employer] 00:00:00 Problems Condition [...] ents Source Name Type Date Date Clinician Navarro Propensi Active Rash 2020- Univers ty to [...] vers NE INGREDI 3-16 ity of 00:00: [place] 00 [facility] Branch GLIMEPIR DRUG Active Hives Univers EFREN INGREDI 3-16 ity of 00:00: [place] 00 Medical Branch METFORMI DRUG Active ITCHING Univers N INGREDI 3-16 ity of 00:00: [place] 00 Medical Branch Social History Social Habit Start Date Stop Date Quantity Comments Source Exposure to Not sure University of SARS-CoV-2 [facility] (event) Branch History of Chews Tobacco University of tobacco use [facility] [place] [facility] History INOH 2020-11-17 2020-11-17 5 University o f Financial 00:00:00 00:00:00 [facility] [place] [facility] History [facility] Food 2020-11-17 2020-11-17 1 Univers ity of Worry 00:00:00 00:00:00 [facility] [place] [facility] History [facility] Food 2020-11-17 2020-11-17 1 Univers ity of Scarcity 00:00:00 00:00:00 [facility] [place] [facility] History [facility] 2020-11-17 2020-11-17 1 University o f Transport Med 00:00:00 00:00:00 [place] Medic al Branch History [facility] 2020-11-17 2020-11-17 1 University o f Transport Non-Med 00:00:00 00:00:00 [facility] edical Branch Education 2020-11-16 2020-11-16 21 [facility] of 00:00:00 00:00:00 [facility] [place] [facility] Alcohol intake 2020-11-16 2020-11-16 Ex-drinker [facility] of 00:00:00 00:00:00 (finding) [facility] [place] [facility] Tobacco use and 2020-08-21 2020-08-21 Former user Universi ty of exposure 00:00:00 00:00:00 [facility] [place] [facility] Tobacco Comment 2020-08-21 2020-08-21 quit 10 years Univer sity of 00:00:00 00:00:00 ago, started in [place] Med ical 2nd year of Branch college (~40 years) Alcohol Comment 2020-08-21 2020-08-21 Used to have 2-3 Uni versity of 00:00:00 00:00:00 six-packs of [place] Medica l beer daily x 20 Branch years, quit 2005 History [facility] 2020-08-21 2020-08-21 99 University o f Alcohol Frequency 00:00:00 00:00:00 [place] M edical Branch History [facility] 2020-08-21 2020-08-21 99 [facility] o f Alcohol Std 00:00:00 00:00:00 [place] Medical Drinks Branch History [facility] 2020-08-21 2020-08-21 99 University o f Alcohol Binge 00:00:00 00:00:00 [place] Medic al Branch Sex [birth year] Universit y of 00:00:00 00:00:00 [facility] [place] [facility] Smoking Status Start Date Stop Date Source Never smoker [facility] Medications Ordered Filled Start Stop [...] 0845, Until Discontinu ed, Routine amLODIPine Yes [id number] 10mg Take 1 Univers 10 mg 3-07 tablet by ity of tablet 00:00: mouth [place] 00 daily. Medical Branch clotrimazol Yes [id number] Apply to Univers e 1 % 3-07 face/ears, ity of topical 00:00: armpits, [place] cream 00 pannus and Medical back/any Branch other rash twice a day fluocinonid 0 Yes [id number] Apply to Univers e 0.05 % 3-07 scalp ity of solution 00:00: twice a [place] 00 day Medical Branch triamcinolo 0 Yes [id number] Apply to Univers ne 3-07 back, ity of acetonide 00:00: armpits [place] 0.1 % cream 00 and other Med ical affected Branch areas twice daily, please mix with clotrimazo le hydrOXYzine 0 Yes [id number] 10mg Take 1 Univers 10 mg 3-07 tablet by ity of tablet 00:00: mouth 2 (two) Medical times Branch daily. amLODIPine 2020-0 Yes [id number] 10mg Take 1 Univers 10 mg 3-07 tablet by ity of tablet 00:00: mouth 00 daily. Medical Branch clotrimazol 2020-0 Yes [id number] Apply to Univers e 1 % 3-07 face/ears, ity of topical 00:00: armpits, [place] cream 00 pannus and Medical back/any Branch other rash twice a day fluocinonid 0 Yes [id number] Apply to Univers e 0.05 % 3-07 scalp ity of solution 00:00: twice a day Medical Branch triamcinolo 0 Yes [id number] Apply to Univers ne 3-07 back, ity of acetonide 00:00: armpits [place] 0.1 % cream 00 and other Med ical affected Branch areas twice daily, please mix with clotrimazo le hydrOXYzine 0 Yes [id number] 10mg Take 1 Univers 10 mg 3-07 tablet by ity of tablet 00:00: mouth 2 (two) Medical times Branch daily. amLODIPine Yes [id number] 10mg Take 1 Univers 10 mg 3-07 tablet by ity of tablet 00:00: mouth 00 daily. Medical Branch clotrimazol 0 Yes [id number] Apply to Univers e 1 % 3-07 face/ears, ity of topical 00:00: armpits, [place] cream 00 pannus and Medical back/any Branch other rash twice a day fluocinonid 2020-0 Yes [id number] Apply to Univers e 0.05 % 3-07 scalp ity of solution 00:00: twice a [place] 00 day Medical Branch triamcinolo 2020-0 Yes [id number] Apply to Univers ne 3-07 back, ity of acetonide 00:00: armpits [place] 0.1 % cream 00 and other Med ical affected Branch areas twice daily, please mix with clotrimazo le hydrOXYzine Yes [id number] 10mg Take 1 Univers 10 mg 3-07 tablet by ity of tablet 00:00: mouth 2 [place] 00 (two) Medical times Branch daily. amLODIPine Yes [id number] 10mg Take 1 Univers 10 mg 3-07 tablet by ity of tablet 00:00: mouth [place] 00 daily. Medical Branch clotrimazol Yes [id number] Apply to Univers e 1 % 3-07 face/ears, ity of topical 00:00: armpits, [place] cream 00 pannus and Medical back/any Branch other rash twice a day fluocinonid Yes [id number] Apply to Univers e 0.05 % 307 scalp ity of solution 00:00: twice a [place] 00 day Medical Branch triamcinolo Yes [id number] Apply to Univers ne 3-07 back, ity of acetonide 00:00: armpits [place] 0.1 % cream 00 and other Med ical affected Branch areas twice daily, please mix with clotrimazo le hydrOXYzine Yes [id number] 10mg Take 1 Univers 10 mg 3-07 tablet by ity of tablet 00:00: mouth 2 [place] 00 (two) Medical times Branch daily. cephALEXin 2020-2020- No [id number] 500mg Take 1 Univers 500 mg 3-04 14-11 capsule by ity of capsule 00:00: 05:59 mouth [place] 00 :00 every 6 Medical (six) Branch hours for 3 days. cephALEXin 2020-0 2020- No [id number] 500mg Take 1 Univers 500 mg 3-04 14-11 capsule by ity of capsule 00:00: 05:59 mouth [place] 00 :00 every 6 Medical (six) Branch hours for 3 days. hydrOXYzine 2020-2020- No [id number] 10mg Take 1 Univers 10 mg 3- 03-07 tablet by ity of tablet 00:00: 00:00 mouth 2 [place] 00 :00 (two) Medical times Branch daily. morpHINE Yes 4mg 4 mg, Slow Uni vers injection 4 - IV Push, ity of mg 22:40: Q6HPRN, [place] 02 Starting Medical 12/16/20 Branch at 1640, [...] IV [place] 500 mL 00 :00 Piggyback, [facility] ONCE, 1 Branch dose, Fri12/15/20 at 1000, STAT HYDROmorpho Yes 4mg 4 mg, Unive ne 12-15 Oral, BID, ity of (DILAUDID) 15:30: First dose [place] tablet 4 mg 00 (after Medica l last Branch modificati on) on Fri12/15/20 at 0930, Until Discontinu ed, Routine amLODIPine 2020- No [id number] 10mg Take 1 Univers 10 mg 12-15 tablet by ity of tablet 00:00: 00:00 mouth [place] 00 :00 daily. Medical Branch HYDROmorpho No 1mg 1 mg, Univ ers ne 12-14 Oral, ity of (DILAUDID) 17:35: 15:18 Q6HPRN, [place] tablet 1 mg 30 :06 Starting Medi [facility] 12/14/20 Branch at 1135, Until Fri12/15/20 at 0918, Routine, Pain (scale 7-10) hydrOXYzine Yes 10mg 10 mg, [facility] ers (ATARAX) 12-14 Oral, BID, ity o f tablet 10 17:30: First dose [place] mg 00 on [facility] 12/14/20 at Branch 1130, Until Discontinu ed, Routine lisinopriL Yes 5mg 5 mg, Univer s (PRINIVIL,Z 12-14 Oral, ity of ESTRIL) 17:30: DAILY, [place] tablet 5 mg 00 First dose Me dical on [facility] 12/14/20 at 1130, Until Discontinu ed, Routine triamcinolo 2020- No [id number] Apply to [facility] 12-14 back, ity of acetonide 00:00: 00:00 armpits [place] 0.1 % cream 00 :00 and other Med ical affected Branch areas twice daily, please mix with clotrimazo le clotrimazol 2020- No [id number] Apply to Univers e 1 % 12-14 face/ears, ity of topical 00:00: 00:00 armpits, [place] cream 00 :00 pannus and Medical back/any Branch other rash twice a day fluocinonid 2020- No [id number] Apply to Univers e 0.05 % 12-14 scalp ity of solution 00:00: 00:00 twice a [place] 00 :00 day Medical Branch hydrOXYzine 2020- No [id number] 10mg Take 1 Univers 10 mg 12-14 [...] IV Push, ity of (PF)) 10:07: Q6HPRN, [place] injection 4 28 Starting Medi jose c mg 12/13/20 Branch at 0407, Until Discontinu ed, Routine, Nausea and Vomiting (N/V) ondansetron 2020- No 4mg 4 mg, Slow Univers (ZOFRAN 12-13-03 IV Push, ity of (PF)) 04:55: 05:44 ONCE, 1 [place] injection 4 00 :00 dose, [facility] ical mg 12/12/20 at Branch 2300, Routine traMADoL 2020- No 50mg 50 mg, Univer s (ULTRAM) 3 03-03 Oral, ity of tablet 50 03:45: 03:34 ONCE, 1 [place] mg 00 :00 dose, [facility] 12/12/20 at Branch 2145, Routine insulin Yes 15U 15 Units, Univ rs glargine 12-12 Subcutaneo ity o f (LANTUS 15:00: us, DAILY, [place] U-100) 00 First dose Medical injection on [facility] 15 Units 12/12/20 at 0900, Until Discontinu ed hydrOXYzine 2020- No 10mg 10 mg, Uni vers (ATARAX) 12-12 03-02 Oral, ity of tablet 10 08:15: 07:33 ONCE, 1 [place] mg 00 :00 dose, [facility] 12/12/20 at Branch 0215, Routine mirtazapine Yes 7.5mg 7.5 mg, Un toi (REMERON) 3-02 Oral, QHS, ity of tablet 7.5 03:00: First dose [place] mg 00 on [facility] 12/11/20 at Branch 2100, Until Discontinu ed, Routine venlafaxine Yes 300mg 300 mg, Un toi XR (EFFEXOR 3-02 Oral, QHS, it y of XR) 24 hr 03:00: First dose [place] capsule 300 00 on [facility] Medica l mg 12/11/20 at Branch 2100, Until Discontinu ed, Routine fluocinonid Yes Topical, Un toi e (LIDEX) 3 BID, First ity of 0.05 % 02:00: dose on [place] solution 00 Fri12/11/20 Medic al at 2000, Branch Until Discontinu ed, Routine acetaminoph 2020- No 1{tbl} 1 tablet, Univers en-codeine 12-11 03-05 Oral, ity of (TYLENOL 23:23: 13:49 Q6HPRN, [place] #3) 300-30 43 :08 Starting Medic al mg tablet 1 Fri12/11/20 Br anch tablet at 1723, Until Fri12/15/20 at 0749, Routine, Pain (scale 4-6) enoxaparin Yes 40mg 40 mg, Unive rs (LOVENOX) 12-11 Subcutaneo ity of injection 23:00: us, DAILY, [place] 40 mg 00 First dose Medical on Fri [place] 12/11/20 at 1700, Until Discontinu ed, Routine [...] ed, Routine insulin Yes 5U 5 Units, [facility] s lispro 12-11 Subcutaneo ity of (human) 18:00: us, TID [place] (HumaLOG 00 MEALS, Medical U-100) First dose Branch injection 5 on [facility] Units 12/11/20 at 1200, Until Discontinu ed Polyethylen Yes 17g 17 g, [facility] rs e Glycol 12-11 Oral, ity of 3350 17:47: [id number], [place] (MIRALAX) 05 Starting Medica l powder 17 g 12/11/20 Br anch at 1147, Until Discontinu ed, Routine, Constipati on acetaminoph Yes 650mg 650 mg, Un toi en 12-11 Oral, ity of (TYLENOL) 16:51: Q6HPRN, [place] tablet 650 28 Starting Medic al mg [...]
Duration of therapy: 72 hours sennosides- Yes [id number] 1{tbl} Take 1 [facility] docusate 2-09 tablet by ity of sodium 00:00: mouth 2 [place] 8.6-50 mg 00 (two) Medical per tablet times Branch daily. hydrocortis Yes [id number] Apply to [facility] one 2.5 % 11-21 affected ity of cream 00:00: area(s) 2 [place] 00 (two) Medical times Branch daily. blood sugar Yes [id number] Use to [facility] diagnostic 2 check ity of (FREESTYLE 00:00: blood [place] LITE 00 glucose Medical STRIPS) 4-5 times Branch strip daily. Polyethylen Yes [id number] 17g Take 1 Univers e Glycol 2-09 Packet by ity of 3350 17 00:00: mouth [place] gram powder 00 every 24 Medi jose c (twenty-fo Branch ur) hours as needed for Constipati on. sennosides- Yes [id number] 1{tbl} Take 1 Univers docusate 2-09 tablet by ity of sodium 00:00: mouth 2 [place] 8.6-50 mg 00 (two) Medical per tablet times Branch daily. hydrocortis 2020-0 Yes [id number] Apply to Univers one 2.5 % 2-09 affected ity of cream 00:00: area(s) 2 [place] 00 (two) Medical times Branch daily. blood sugar 2020-0 Yes [id number] Use to Univers diagnostic 11-21 check ity of (FREESTYLE 00:00: blood [place] LITE 00 glucose Medical STRIPS) 4-5 times Branch strip daily. Polyethylen 2020-0 Yes [id number] 17g Take 1 Univers e Glycol 2-09 Packet by ity of 3350 17 00:00: mouth [place] gram powder 00 every 24 Medi jose c (twenty-fo Branch ur) hours as needed for Constipati on. sennosides- 2020-0 Yes [id number] 1{tbl} Take 1 Univers docusate 2-09 tablet by ity of sodium 00:00: mouth 2 [place] 8.6-50 mg 00 (two) Medical per tablet times Branch daily. hydrocortis 2020-0 Yes [id number] Apply to Univers one 2.5 % 2-09 affected ity of cream 00:00: area(s) 2 [place] 00 (two) Medical times Branch daily. blood sugar 2020-0 Yes [id number] Use to [facility] diagnostic 11-21 check ity of (FREESTYLE 00:00: blood [place] LITE 00 glucose Medical STRIPS) 4-5 times Branch strip daily. Polyethylen 2020-0 Yes [id number] 17g Take 1 Univers e Glycol 2-09 Packet by ity of 3350 17 00:00: mouth [place] gram powder 00 every 24 Medi jose c (twenty-fo Branch ur) hours as needed for Constipati on. sennosides- 2020-0 Yes [id number] 1{tbl} Take 1 Univers docusate 2-09 tablet by ity of sodium 00:00: mouth 2 [place] 8.6-50 mg 00 (two) Medical per tablet times Branch daily. hydrocortis 2020-0 Yes [id number] Apply to Univers one 2.5 % 2-09 affected ity of cream 00:00: area(s) 2 [place] 00 (two) Medical times Branch daily. blood sugar Yes [id number] Use to [facility] diagnostic 11-21 check ity of (FREESTYLE 00:00: blood [place] LITE 00 glucose Medical STRIPS) 4-5 times Branch strip daily. Polyethylen Yes [id number] 17g Take 1 Univers e Glycol 11-21 Packet by ity of 3350 17 00:00: mouth [place] gram powder 00 every 24 Medi jose c (twenty-fo Branch ur) hours as needed for Constipati on. Insulin 2020- No [id number] 15U inject 15 Univers Glargine 11-21 Units ity of (LANTUS 00:00: 05:59 under the [place] SOLOSTAR 00 :00 skin every Medic al U-100 morning Branch INSULIN) for 30 100 unit/mL days. (3 mL) injection venlafaxine 2020- No [id number] 150mg Take 1 Univers XR 150 mg 11-21 capsule by ity of 24 hr 00:00: 05:59 mouth 3 [place] capsule 00 :00 (three) Medical times Branch daily for 30 days. Insulin 2020- No [id number] 15U inject 15 Univers Glargine 11-2112 Units ity of (LANTUS 00:00: 05:59 under the [employer] SOLOSTAR 00 :00 skin every Medic al U-100 morning Branch INSULIN) for 30 100 unit/mL days. (3 mL) injection venlafaxine 2020- No [id number] 150mg Take 1 Univers XR 150 mg 11-21 capsule by ity of 24 hr 00:00: 05:59 mouth 3 [place] capsule 00 :00 (three) Medical times Branch daily for 30 days. triamcinolo 2020- No [id number] Apply to [facility] ne 11-21 area(s) 2 ity of acetonide 00:00: 00:00 (two) [place] 0.1 % cream 00 :00 times Medical daily. Branch cephALEXin 2020- No [id number] 1000mg Take 2 Univers 500 mg 11-21 capsules ity of capsule 00:00: 00:00 by mouth 3 [place] 00 :00 (three) Medical times Branch daily. doxycycline 2020- No [id number] 100mg Take 1 Univers hyclate 100 11-21 capsule by i ty of mg capsule 00:00: 00:00 mouth [place] 00 :00 every 12 Medical (twelve) Branch hours. lactobacill 2020- No [id number] 1{tbl} Take 1 Univers us 11-21 tablet by ity of acidophilus 00:00: 00:00 mouth 2 [place] 25 million 00 :00 (two) Medical cell -100 times Branch mg captab daily. bisacodyL 2020- No [id number] 10mg Insert 1 Univers 10 mg 11-21 Suppositor ity of suppository 00:00: 00:00 y into [place] 00 :00 rectum at Medical bedtime as Branch needed for Constipati on. ALPRAZolam 2020- No [id number] .25mg Take 1 Univers (XANAX) 11-21 tablet by ity of 0.25 mg 00:00: 00:00 mouth 2 [place] tablet 00 :00 (two) Medical times Branch daily. hydrOXYzine 2020- No [id number] 20mg Take 2 Univers 10 mg 11-21 [...] Units ity of (LANTUS 01:13: under the [place] SOLOSTAR) 36 skin. Medical 100 unit/mL Branch [...] Units ity of (LANTUS 01:13: under the [place] [facility]) 36 skin. Medical 100 unit/mL Branch (3 mL) InPn INSULIN 2019-10 Yes 5U inject 5 Univer s ASPART 1-12 Units ity of (NOVOLOG 01:13: under the [facility] s FLEXPEN SC) 36 skin. Medical Branch [...] Units ity of (LANTUS 01:13: under the [place] SOLOSTND) 36 skin. Medical 100 unit/mL Branch (3 mL) In INSULIN 2019- Yes 5U inject 5 Univer s ASPART 1-12 Units ity of (NOVOLOG 01:13: [facility] the [facility] FLEXPEN SC) 36 skin. Medical Branch [...] Units ity of (LANTUS 01:13: under the [place] [facility]) 36 skin. Medical 100 unit/mL Branch (3 mL) In INSULIN 2019-10 Yes 5U inject 5 Univer s ASPART 1-12 Units ity of (NOVOLOG 01:13: under the [facility] FLEXPEN SC) 36 skin. Medical Branch [...] 2019-10 Yes 6mg Take 6 mg Un oti (ZANAFLEX) 1-12 by mouth 3 ity of 6 mg 01:13: (three) [place] capsule 36 times Medical daily. Branch Insulin 2019-10 Yes 15U inject 15 Unive rs Glargine 1-12 Units ity of (LANTUS 01:13: under the [place] SOLOSTAR) 36 skin. Medical 100 unit/mL Branch (3 mL) InPn INSULIN 2019-10 Yes 5U inject 5 Univer s ASPART 1-12 Units ity of (NOVOLOG 01:13: under the [facility] FLEXPEN SC) 36 skin. Medical Branch [...] Units ity of (LANTUS 01:13: under the [place] SOLOSTAR) 36 skin. Medical 100 unit/mL Branch [...] 34 :00 Medical Branch hydrocortis 2019- Yes [id number] Apply to Univers one 2.5 % 1-11 affected ity of cream 00:00: area(s) 2 [place] (two) Medical times Branch daily. hydrOXYzine 2019-10 Yes [id number] 20mg Take 2 Univers 10 mg 1-11 tablets by ity of tablet 00:00: mouth [place] 00 every 8 Medical (eight) Branch hours as needed for Itching or Anxiety. Polyethylen 2019-10 Yes [id number] 17g Take 1 Univers e Glycol 1-11 Packet by ity of 3350 17 00:00: mouth [place] gram powder 00 every 24 Medi jose c (twenty-fo Branch ur) hours as needed for Constipati on. hydrocortis 2019-10 Yes [id number] Apply to Univers one 2.5 % 1-11 affected ity of cream 00:00: area(s) 2 [place] 00 (two) Medical times Branch daily. hydrOXYzine 2019- Yes [id number] 20mg Take 2 Univers 10 mg 1-11 tablets by ity of tablet 00:00: mouth [place] 00 every 8 Medical (eight) Branch hours as needed for Itching or Anxiety. Polyethylen 2019- Yes [id number] 17g Take 1 Univers e Glycol 1-11 Packet by ity of 3350 17 00:00: mouth [place] gram powder 00 every 24 Medi jose c (twenty-fo Branch ur) hours as needed for Constipati on. hydrocortis 2019- Yes [id number] Apply to Univers one 2.5 % 1-11 affected ity of cream 00:00: area(s) 2 [place] 00 (two) Medical times Branch daily. hydrOXYzine 2019- Yes [id number] 20mg Take 2 Univers 10 mg 1-11 tablets by ity of tablet 00:00: mouth [place] 00 every 8 Medical (eight) Branch hours as needed for Itching or Anxiety. Polyethylen 2020- Yes [id number] 17g Take 1 Univers e Glycol 1-11 Packet by ity of 3350 17 00:00: mouth [place] gram powder 00 every 24 Medi jose c (twenty-fo Branch ur) hours as needed for Constipati on. hydrocortis 2019- Yes [id number] Apply to Univers one 2.5 % 1-11 affected ity of cream 00:00: area(s) 2 [place] 00 (two) Medical times Branch daily. hydrOXYzine 2019- Yes [id number] 20mg Take 2 Univers 10 mg 1-11 tablets by ity of tablet 00:00: mouth [place] 00 every 8 Medical (eight) Branch hours as needed for Itching or Anxiety. Polyethylen 2019- Yes [id number] 17g Take 1 Univers e Glycol 1-11 Packet by ity of 3350 17 00:00: mouth [place] gram powder 00 every 24 Medi jose c (twenty-fo Branch ur) hours as needed for Constipati on. hydrocortis 2019-10 Yes [id number] Apply to Univers one 2.5 % 1-11 affected ity of cream 00:00: area(s) 2 [place] 00 (two) Medical times Branch daily. hydrOXYzine 2019- Yes [id number] 20mg Take 2 Univers 10 mg 1-11 tablets by ity of tablet 00:00: mouth [place] 00 every 8 Medical (eight) Branch hours as needed for Itching or Anxiety. Polyethylen 2019- Yes [id number] 17g Take 1 Univers e Glycol 1-11 Packet by ity of 3350 17 00:00: mouth [place] gram powder 00 every 24 Medi jose c (twenty-fo Branch ur) hours as needed for Constipati on. hydrocortis 2019- Yes [id number] Apply to Univers one 2.5 % 1-11 affected ity of cream 00:00: area(s) 2 [place] 00 (two) Medical times Branch daily. hydrOXYzine 2019- Yes [id number] 20mg Take 2 Univers 10 mg 1-11 tablets by ity of tablet 00:00: mouth [place] 00 every 8 Medical (eight) Branch hours as needed for Itching or Anxiety. Polyethylen 2019- Yes [id number] 17g Take 1 Univers e Glycol 1-11 Packet by ity of 3350 17 00:00: mouth [place] gram powder 00 every 24 Medi jose c (twenty-fo Branch ur) hours as needed for Constipati on. hydrocortis 2019-10 Yes [id number] Apply to Univers one 2.5 % 1-11 affected ity of cream 00:00: area(s) 2 [place] 00 (two) Medical times Branch daily. hydrOXYzine 2019-10 Yes [id number] 20mg Take 2 Univers 10 mg 1-11 tablets by ity of tablet 00:00: mouth [place] 00 every 8 Medical (eight) Branch hours as needed for Itching or Anxiety. Polyethylen 2019-10 Yes [id number] 17g Take 1 Univers e Glycol 1-11 Packet by ity of 3350 17 00:00: mouth [place] gram powder 00 every 24 Medi jose c (twenty-fo Branch ur) hours as needed for Constipati on. triamcinolo 2019-10 2020- No [id number] Apply to [facility] 10-23 area(s) 2 ity of acetonide 00:00: 05:59 (two) [place] 0.1 % cream 00 :00 times Medical daily for Branch 14 days. triamcinolo 2019-10 2020- No [id number] Apply to [facility] 10-23 area(s) 2 ity of acetonide 00:00: 05:59 (two) [place] 0.1 % cream 00 :00 times Medical daily for Branch 14 days. triamcinolo 2019-10 2020- No [id number] Apply to [facility] 10-23 area(s) 2 ity of acetonide 00:00: 05:59 (two) [place] 0.1 % cream 00 :00 times Medical daily for Branch 14 days. KCL 2019-10 2020- No 40meq 40 mEq, Univers (KLOR-CON 10-22- Oral, ONCE ity of M20) tablet 16:15: 16:23 NOW, 1 [place] 40 mEq 00 :00 dose, [facility] Medical 08/22/20 Branch at 1015, Routine HYDROmorpho 2019-10 Yes 1mg 1 mg, Unive rs ne - Oral, ity of (DILAUDID) 15:07: Q6HPRN, [place] tablet 1 mg 53 Starting Medi jose c Tue Branch 08/22/20 at 0907, Until Discontinu ed, Routine, Pain (scale 7-10) hydrocortis 2019- Yes Topical Uni vers one 2.5 % 1-10 (Apply To ity o f cream 02:00: Affected [place] 00 Areas), Medical BID, First Branch dose on [facility] 08/21/20 at 2000, Until Discontinu ed, Routine triamcinolo 2019- Yes Topical, Un toi ne 1-10 BID, First ity of acetonide 02:00: dose on [place] (TRIDERM) 00 [facility] Medical 0.1 % cream 08/21/20 at Br anch 2000, Until Discontinu ed, Routine hydrOXYzine 2019-10 Yes 20mg 20 mg, Univ ers (ATARAX) 09 Oral, ity of tablet 20 17:39: Q8HPRN, [place] mg 12 Starting Medical [facility] Branch 08/21/20 at 1139, Until Discontinu ed, Routine, Itching, Anxiety sennosides- 2019-10 Yes 1{tbl} 1 tablet, Univers docusate 10-21 Oral, ity of sodium 15:00: DAILY, [place] (SENOKOT-S) 00 First dose Me dical 8.6-50 mg on [facility] Branch per tablet 08/21/20 at 1 tablet 0900, Until Discontinu ed, Routine hydrocortis 2019-10 2020- No Topical Un toi one 1 % 10-21- (Apply To ity of cream 15:00: 22:54 Affected [place] 00 :48 Areas), Medical DAILY, Branch First dose on [facility] 08/21/20 at 0900, Until Discontinu ed, Routine venlafaxine 2019-10 Yes 150mg 150 mg, Un toi XR (EFFEXOR 09 Oral, TID, it y of XR) 24 hr 14:00: First dose [place] capsule 150 00 on [facility] Medica l mg 08/21/20 at Branch 0800, Until Discontinu ed, Routine heparin 2019-10 Yes 5000U 5,000 Univers (porcine) -09 Units, ity of injection 14:00: Subcutaneo [place] 5,000 Units 00 us, Q12H, Med ical First dose Branch on [facility] 08/21/20 at 0800, Until Discontinu ed, Routine diphenhydrA 2019-10 2020- No 25mg 25 mg, Uni vers MINE 10-21 Oral, ity of (BENADRYL) 12:56: 17:39 Q8HPRN, Jeff as tablet 25 59 :43 Starting Medica l mg [facility] 08/21/20 at 0656, Until [facility] 08/21/20 at 1139, Routine, Itching, Mild Rash, Congestion /Allergies , alternate with hydroxyzin e hydrOXYzine 2019-10- No 10mg 10 mg, Uni vers (ATARAX) 10-21 Oral, ity of tablet 10 10:20: 12:57 Q6HPRN, [place] mg 22 :12 Starting [facility] 08/21/20 at 0420, Until [facility] 08/21/20 at 0657, Routine, Itching, Anxiety Sliding 2019-10 Yes Subcutaneo [facility] ers Scale 09 us, Q4H, ity of Insulin - 10:00: First dose [place] Aspart 00 (after Medical (NOVOLOG) + last Branch Fsbg modificati Testing on) on [facility] 08/21/20 at 0400, Until Discontinu ed, Routine lidocaine 5 2019-10 2020- No Topical, U nivers % ointment 10-21 ONCE, 1 ity o f 09:30: 09:14 dose, [facility] 00 :00 08/21/20 at [facility] 0330, Branch Routine Polyethylen 2019-10 Yes 17g 17 g, [facility] rs e Glycol 10-21 Oral, ity of 3350 08:29: [id number], [place] (MIRALAX) Starting Medica l powder 17 g [facility] 08/21/20 at 0229, Until Discontinu ed, Routine, Constipati on lanolin 2019-10 Yes Topical, [facility] alcohol-mo- 10-21 PRN, ity of w.pet-ceres 08:26: [place] (EUCERIN) 30 [facility] cream 08/21/20 at Branch 0226, Until Discontinu ed, Routine, Dermatitis /Rash ALPRAZolam 2019-10 Yes .25mg 0.25 mg, Un toi (XANAX) 10-21 Oral, ity of tablet 0.25 08:25: BIDPRN, [place] mg 41 Starting [facility] 08/21/20 at 0225, Until Discontinu [...] hours. Branch blood sugar Yes Use to [employer] ers diagnostic 4-25 check ity of (FREESTYLE 00:00: blood [place] LITE 00 glucose Medical STRIPS) 4-5 times Branch strip daily. blood sugar Yes Use to [employer] ers diagnostic 4-25 check ity of (FREESTYLE 00:00: blood [place] LITE 00 glucose Medical STRIPS) 4-5 times Branch strip daily. blood sugar Yes Use to Univ ers diagnostic 4-25 check ity of (FREESTYLE 00:00: blood [place] LITE 00 glucose Medical STRIPS) 4-5 times Branch strip daily. blood sugar Yes Use to [employer] ers diagnostic 4-25 check ity of (FREESTYLE 00:00: blood [place] LITE 00 glucose Medical STRIPS) 4-5 times Branch strip daily. blood sugar Yes Use to [employer] ers diagnostic 4-25 check ity of (FREESTYLE 00:00: blood [place] LITE 00 glucose Medical STRIPS) 4-5 times Branch strip daily. blood sugar Yes Use to [facility] ers diagnostic 4-25 check ity of (FREESTYLE [...] 13:00:00 148 mm[Hg] Univer sity of pressure [place] [facility] Diastolic blood 2021-08-22 13:00:00 84 mm[Hg] Unive rsity of pressure [facility] Heart rate 2021-08-22 13:00:00 103 /min [facility] Respiratory rate 2021-08-22 13:00:00 18 /min Univ ersity of [place] [facility] [place] Oxygen saturation in 2021-08-22 13:00:00 95 /min University of Arterial blood by [facility] Pulse oximetry Branch Body temperature 2021-08-22 12:22:00 36.72 [place] Univ ersity of [place] [facility] Systolic blood 2020-12-17 18:35:00 139 mm[Hg] Univer sity of pressure [place] [facility] Diastolic blood 2020-12-17 18:35:00 87 mm[Hg] Unive rsity of pressure [place] [facility] Heart rate 2020-12-17 18:35:00 110 /min [facility] Body temperature 2020-12-17 18:35:00 37.72 [place] Univ ersity of [place] [facility] Respiratory rate 2020-12-17 18:35:00 18 /min Univ ersity of [place] [facility] Oxygen saturation in 2020-12-17 18:35:00 93 /min University of Arterial blood by [facility] Pulse oximetry Branch Body height 2020-12-12 08:21:00 180.3 cm [facility] Body weight 2020-12-12 08:21:00 103.42 kg [facility] BMI 2020-12-12 08:21:00 31.80 kg/m2 [facility] Systolic blood 2020-12-17 18:35:00 139 mm[Hg] Univer sity of pressure [place] [facility] Diastolic blood 2020-12-17 18:35:00 87 mm[Hg] Unive rsity of pressure [place] [facility] Heart rate 2020-12-17 18:35:00 110 /min Universi ty of [place] [facility] [place] Body temperature 2020-12-17 18:35:00 37.72 [place] Univ ersity of [place] [facility] Respiratory rate 2020-12-17 18:35:00 18 /min Univ ersity of [place] [facility] Oxygen saturation in 2020-12-17 18:35:00 93 /min University of Arterial blood by [place] [facility] Pulse oximetry Branch Body height 2020-12-12 08:21:00 180.3 cm Universi ty of [place] [facility] [place] Body weight 2020-12-12 08:21:00 103.42 kg Universi ty [facility] [place] [facility] [place] BMI 2020-12-12 08:21:00 31.80 kg/m2 Universi ty [facility] [place] [facility] Systolic blood 2020-08-23 19:27:00 140 mm[Hg] Univer sity of pressure [place] [facility] Diastolic blood 2020-08-23 19:27:00 79 mm[Hg] Unive rsity of pressure [place] [facility] Heart rate 2020-08-23 19:27:00 99 /min Universi ty of [place] [facility] [place] Body temperature 2020-08-23 19:27:00 36 [place] Univ ersity of [place] [facility] Respiratory rate 2020-08-23 19:27:00 18 /min Univ ersity of [place] [facility] Oxygen saturation in 2020-08-23 19:27:00 93 /min University of Arterial blood by [place] [facility] Pulse oximetry Branch Body weight 2020-08-21 07:20:00 104.962 kg Universi ty [facility] [place] [facility] BMI 2020-08-21 07:20:00 32.27 kg/m2 [facility]i ty [facility] [place] [facility] Systolic blood 2020-08-23 19:27:00 140 mm[Hg] Univer sity of pressure [place] [facility] Diastolic blood 2020-08-23 19:27:00 79 mm[Hg] Unive rsity of pressure [place] [facility] Heart rate 2020-08-23 19:27:00 99 /min [facility]i ty [facility] [place] [facility] Body temperature 2020-08-23 19:27:00 36 [place] [facility] Respiratory rate 2020-08-23 19:27:00 18 /min [facility] Oxygen saturation in 2020-08-23 19:27:00 93 /min [facility] Arterial blood by [facility] Pulse oximetry [place] Body weight 2020-08-21 07:20:00 104.962 kg [facility] BMI 2020-08-21 07:20:00 32.27 kg/m2 [facility] Procedures Procedure Date / Time Performing Clinician Source Performed POCT GLUCOSE (AUTOMATED) 2020-12-17 15:42:00 Harrison, Premal [facility] BASIC METABOLIC PANEL 2020-12-17 10:45:00 Paul Bean [facility] (NA, K, CL, CO2, GLUCOSE, Kaley Medica l Branch BUN, CREATININE, CA) CBC WITH DIFF 2020-12-17 10:45:00 Paul Bean [facility] POCT GLUCOSE (AUTOMATED) 2020-12-17 02:36:00 Harrison, Premal G Uni [facility] XR TIBIA FIBULA 2 VW LEFT 2020-12-16 23:38:00 Paul Bean [facility] POCT GLUCOSE (AUTOMATED) 2020-12-16 23:20:00 Harrison, Premal G [facility] POCT GLUCOSE (AUTOMATED) 2020-12-16 20:10:00 Harrison, Premal G Uni [facility] [place] [facility] POCT GLUCOSE (AUTOMATED) 2020-12-16 14:43:00 Harrison, Premal G [facility] BASIC METABOLIC PANEL 2020-12-16 13:51:00 Paul Bean [facility] (NA, K, CL, CO2, GLUCOSE, [place] Med[facility] l Branch BUN, CREATININE, CA) CBC WITH DIFF 2020-12-16 13:51:00 Paul Bean [facility] POCT GLUCOSE (AUTOMATED) 2020-12-16 04:00:00 Harrison, Premal G [facility] POCT GLUCOSE (AUTOMATED) 2020-12-16 00:14:00 Harrison, Premal G Uni versity of [facility] [place] [facility] CT CHEST PULMONARY 2020-12-15 22:29:38 Paul Bean [facility] ANGIOGRAM [facility] POCT GLUCOSE (AUTOMATED) 2020-12-15 19:26:00 Harrison, Premal G Uni vers[facility] [place] [facility] POCT GLUCOSE (AUTOMATED) 2020-12-15 15:13:00 Harrison, Premal G Uni versity [facility] [place] [facility] HB ECG ROUTINE & RHYTHM 2020-12-15 14:25:27 Cailin Romo [facility] Branch MAGNESIUM 2020-12-15 12:01:00 Paul Bean Sivakumar [facility] BASIC METABOLIC PANEL 2020-12-15 12:01:00 Paul Bean [facility] (NA, K, CL, CO2, GLUCOSE, [place] [facility] BUN, CREATININE, CA) CBC WITH DIFF 2020-12-15 12:01:00 Paul Bean [facility] POCT GLUCOSE (AUTOMATED) 2020-12-15 03:57:00 Harrison, Premal G Uni vers[facility] [place] [facility] POCT GLUCOSE (AUTOMATED) 2020-12-14 23:31:00 Harrison, Premal G Uni vers[facility] [place] [facility] POCT GLUCOSE (AUTOMATED) 2020-12-14 19:08:00 Harrison, Premal G Uni vers[facility] [place] [facility] POCT GLUCOSE (AUTOMATED) 2020-12-14 15:11:00 Harrison, Premal G Uni [facility] [place] [facility] POCT GLUCOSE (AUTOMATED) 2020-12-14 02:36:00 Harrison, Premal G Uni [facility] [place] [facility] POCT GLUCOSE (AUTOMATED) 2020-12-13 23:32:00 Harrison, Premal G Uni vers[facility] [place] [facility] POCT GLUCOSE (AUTOMATED) 2020-12-13 18:08:00 Harrison, Premal G Uni vers[facility] [place] [facility] BASIC METABOLIC PANEL 2020-12-13 15:39:00 Paul Bean [facility] (NA, K, CL, CO2, GLUCOSE, [place] [facility] BUN, CREATININE, CA) CBC WITH DIFF 2020-12-13 15:39:00 Paul Bean Sivakumar [facility] POCT GLUCOSE (AUTOMATED) 2020-12-13 14:06:00 Harrison, Premal [facility] [place] [facility] POCT GLUCOSE (AUTOMATED) 2020-12-13 03:07:00 Harrison, Premal G [facility] POCT GLUCOSE (AUTOMATED) 2020-12-12 23:52:00 Harrison, Premal G [facility] [place] [facility] POCT GLUCOSE (AUTOMATED) 2020-12-12 20:28:00 Harrison, Premal G [facility] POCT GLUCOSE (AUTOMATED) 2020-12-12 19:14:00 Harrison, Premal G [facility] POCT GLUCOSE (AUTOMATED) 2020-12-12 14:33:00 Harrison, Premal G [facility] MAGNESIUM 2020-12-12 08:58:00 Paul Bean Sivakumar [facility] BASIC METABOLIC PANEL 2020-12-12 08:58:00 Paul Bean [facility] (NA, K, CL, CO2, GLUCOSE, [place] [facility] BUN, CREATININE, CA) CBC WITH DIFF 2020-12-12 08:58:00 Paul Bean Sivakumar [facility] US ABDOMEN LIMITED 2020-12-12 06:32:26 Paul Bean Sivakumar [facility] POCT GLUCOSE (AUTOMATED) 2020-12-12 03:40:00 Harrison, Premal G Uni [facility] POCT GLUCOSE (AUTOMATED) 2020-12-12 00:06:00 Harrison, Premal G Uni [facility] XR HIPS 3 VW LEFT 2020-12-11 20:20:00 Darnell Beanaham Sivakumar [facility] HB ECG ROUTINE & RHYTHM 2020-12-11 20:04:06 Cailin Romo [facility] VITAMIN B6, PLASMA 2020-12-11 19:17:00 [facility] POCT GLUCOSE (AUTOMATED) 2020-12-11 19:06:00 Rene Harrison [facility] CREATINE KINASE 2020-12-11 18:22:00 Clarisse Hannon [facility] VITAMIN B12, LEVEL 2020-12-11 18:22:00 Paul Bean [facility] FOLATE 2020-12-11 18:22:00 Vikas [facility] THYROID STIMULATING 2020-12-11 18:22:00 Cailin Romo [facility] HORMONE [facility] PROCALCITONIN 2020-12-11 18:22:00 Vikas [facility] VITAMIN B1 (THIAMINE), 2020-12-11 18:22:00 Paul Bean Sivakumar [facility] WHOLE BLOOD [facility] CT HEAD WO CONTRAST 2020-12-11 14:07:35 Sweetie Stout [facility] URINALYSIS 2020-12-11 13:44:00 Singer [facility] URINE CULTURE 2020-12-11 13:44:00 [facility] COVID-19 (ID NOW RAPID 2020-12-11 12:31:00 Paco Lacey [facility] TESTING) [facility] LAB ONLY COVID 2020-12-11 12:31:00 Singer [facility] XR CHEST 1 VW 2020-12-11 12:07:24 Singer [facility] BLOOD CULTURE SCREEN 2020-12-11 12:02:00 Paco Lacey [facility] MAGNESIUM 2020-12-11 12:02:00 Paul Bean Sivakumar [facility] FERRITIN SERUM 2020-12-11 12:02:00 Darnell Beanaham Sivakumar [facility] COMP. METABOLIC PANEL 2020-12-11 12:02:00 Paco Lacey [facility] ([id number]) Medical Branch CBC WITH DIFF 2020-12-11 12:02:00 Singer [facility] LACTIC ACID WHOLE BLOOD 2020-12-11 12:02:00 Paco Lacey [facility] BLOOD CULTURE SCREEN 2020-12-11 11:42:00 Paco Lacey [facility] EMERGENCY SERVICES 2020-12-11 06:01:00 Doctor Tabitha, [facility] AGREEMENTS AND [place] [facility] AUTHORIZATIONS HOSPITAL ADMISSION 2020-12-11 06:01:00 Doctor Tabitha [facility] [place] [facility] HOME HEALTH - OTHER 2020-11-11 06:01:00 Doctor Tabitha [facility] [place] [facility] HEALTH - OTHER 2020-10-30 06:01:00 Doctor Tabitha [facility] Name [facility] EXTERNAL PROVIDER RECORDS 2020-09-01 06:01:00 Doctor Tabitha, [facility] Name [facility] POCT GLUCOSE (AUTOMATED) 2020-08-23 18:09:00 Kelly [facility] POCT GLUCOSE (AUTOMATED) 2020-08-23 14:14:00 Kelly [place] [facility] MAGNESIUM 2020-08-23 11:18:00 [facility] BASIC METABOLIC PANEL 2020-08-23 11:18:00 [facility] (NA, K, CL, CO2, GLUCOSE, Medica l Branch BUN, CREATININE, CA) CBC WITH DIFF 2020-08-23 11:18:00 [facility] POCT GLUCOSE (AUTOMATED) 2020-08-23 10:21:00 [facility] ([facility]) 2020-08-23 05:55:00 Kelly [place] versity [facility] POCT GLUCOSE (AUTOMATED) 2020-08-23 03:00:00 Kelly [place] versity [facility] POCT GLUCOSE (AUTOMATED) 2020-08-22 23:38:00 Kelly [place] Uni versity [facility] POCT GLUCOSE (AUTOMATED) 2020-08-22 19:04:00 [place], Kelly Uni [facility] POCT GLUCOSE (AUTOMATED) 2020-08-22 13:49:00 Kelly [facility] MAGNESIUM 2020-08-22 10:10:00 Ramya, [facility] HEPATIC FUNCTION PANEL 2020-08-22 10:10:00 Jill Aguila [facility] ([id number]) (ALB,T.PRO,BILI Medical Branch T,BU/BC,ALT,AST,ALK PHOS) BASIC METABOLIC PANEL 2020-08-22 10:10:00 Ramya, [facility] (NA, K, CL, CO2, GLUCOSE, Medica l Branch BUN, CREATININE, CA) LIPID PANEL ([id number])(TOTAL 2020-08-22 10:10:00 [place], [facility] TRIGLYCERIDES, HDL) CBC WITH DIFF 2020-08-22 10:10:00 [facility] POCT GLUCOSE (AUTOMATED) 2020-08-22 10:10:00 Kelly [place] [facility] POCT GLUCOSE (AUTOMATED) 2020-08-22 07:13:00 Kelly [place] [facility] POCT GLUCOSE (AUTOMATED) 2020-08-22 02:24:00 Kelly [place] [facility] POCT GLUCOSE (AUTOMATED) 2020-08-21 23:40:00 Kelly [place] [facility] POCT GLUCOSE (AUTOMATED) 2020-08-21 18:10:00 Kelly [place] [facility] POCT GLUCOSE (AUTOMATED) 2020-08-21 13:39:00 Kelly [place] [facility] ETHANOL 2020-08-21 12:35:00 Jos Quiroz [facility] ACTIVATED PARTIAL 2020-08-21 12:35:00 Padmini [facility] THRMPLAS [facility] GALV ONLY - SYPHILIS 2020-08-21 12:35:00 Padmini Kelly [facility] IGG/IGM [facility] LACTATE DEHYDROGENASE 2020-08-21 10:09:00 Florence, [facility] GALV/CLC ONLY - URINE 2020-08-21 10:09:00 Jos Quiroz [facility] DRUG (IMMUNOASSAY) - 4 ER Medica l Branch PANEL URINALYSIS 2020-08-21 10:09:00 Florence, [facility] URINE CULTURE 2020-08-21 10:09:00 Florence, [facility] PROCALCITONIN 2020-08-21 10:09:00 Florence, [facility] POCT GLUCOSE (AUTOMATED) 2020-08-21 09:41:00 Kelly [place] [facility] PROTHROMBIN TIME / INR 2020-08-21 08:32:00 Florence, [facility] ACTIVATED PARTIAL 2020-08-21 08:32:00 Florence, [facility] THRMPLAS [facility] C-REACTIVE PROTEIN 2020-08-21 08:31:00 Ramya, [facility] HEPATIC FUNCTION PANEL 2020-08-21 08:31:00 Florence, [facility] ([id number]) (ALB,T.PRO,BILI Medical Branch T,BU/BC,ALT,AST,ALK PHOS) BASIC METABOLIC PANEL 2020-08-21 08:31:00 Florence, [facility] (NA, K, CL, CO2, GLUCOSE, [facility] [place] BUN, CREATININE, CA) SEDIMENTATION RATE 2020-08-21 08:31:00 Florence, [facility] CBC WITH DIFF 2020-08-21 08:31:00 Florence, [facility] GLYCOSYLATED HEMOGLOBIN 2020-08-21 08:31:00 Ramya, [facility] (A1C) [facility] HIV 1/2 AG-AB WITH REFLEX 2020-08-21 08:31:00 [facility] (ID NOW RAPID 2020-08-21 08:20:00 Florence, [facility] TESTING) Medical Branch LAB ONLY COVID 2020-08-21 08:20:00 Florence, [facility] o f [facility] Encounters Start End Encounter Admission Attending Care Care Encounter Source Date/Time Date/Time Type Type Clinicians Facility Department ID 2020-08-21 Inpatient Shayy W[place] [facility] KVNG [id number] Univers 01:07:00 KELLY cantu [facility] 2021-08-22 2021-08-22 [id number] Univers 06:21:00 08:02:00 SWEETIE cantu [facility] 2021-08-22 2021-08-22 [facility] [id number] Univers 06:21:00 08:02:00 Sweetie OREN [id number] i ty of [place] [id number] [facility] 084 [place] 2021-08-09 2021-08-09 Outpatient ZAKI, [facility] [id number] [facility] 10:27:03 10:27:03 ADRIANA lopez of Medicin e 2020-12-28 2020-12-28 Telephone [facility] [id number] 00:00:00 00:00:00 Calvin H PRIMARY [id number] CARE 4.2.7.2.686 PAVILLION [id number] 220 2020-12-28 2020-12-28 Telephone [facility] 1.2.840.114 [id number] Univers 00:00:00 00:00:00 Calvin H PRIMARY [id number] it y of CARE [id number] [place] [facility] [id number] La dical 220 Branch 2020-12-19 2020-12-19 Transition Tuan Peters 1.2.840.114 [id number] 00:00:00 00:00:00 of Care Ruchi Braswell [id number] [place] 4.2.7.2.686 [id number] 2020-12-19 2020-12-19 Transition Tuan Peters 1.2.840.114 [id number] Univers 00:00:00 00:00:00 of Care Ruchi Braswell [id number] it y of [place] 4[place].2.[place] [id number] [facility] 403 Branch 2020-12-11 2020-12-17 [facility] Paco Lacey 1.2.840.1 [id number] 05:11:00 16:00:00 Encounter Rene Harrison Sh[place] [id number] [facility] 4.2.7.2.686 [id number] [facility] 2020-12-11 2020-12-17 [facility] 1.2.840.1 [id number] [facility] 05:11:00 16:00:00 Encounter Rene Harrison [id number] [facility] 4.2.7.2.686 [place] [id number] [place] [id number] [place] 2020-12-11 2020-12-11 Emergency X [facility] ERT [id number] Univers 05:11:00 05:11:00 [facility] [place] 2020-11-16 2020-11-16 Emergency X [facility] ERT [id number] Univers 09:31:00 09:31:00 [facility] [place] 2020-11-11 2020-11-11 Orders Doctor CUI 1.2.840.114 [id number] 00:00:00 00:00:00 Only Unassigned, MONIQUE [id number] [place] [facility] 4.2.7.2.686 [id number] [id number] 2020-11-11 2020-11-11 Orders Doctor CUI 1.2.840.114 [id number] Univers 00:00:00 00:00:00 Only Unassigned, MONIQUE [id number] ity of [place] [facility] 4.2.7.2.686 Jeff as [id number] [facility] 009 [place] 2020-11-07 2020-11-[address] [facility] [id number] 00:00:00 00:00:00 Angi Tobin [id number] [place] 4.2.7.2.686 Professio [id number] [address] 2020-11-07 2020-11-[address] [facility] [id number] [facility] 00:00:00 00:00:00 Sendil DiegoWongHawaWong Tobin [id number] ity of [place]7.2.[place] Professio [id number] [address] 2020-10-30 2020-10-30 Orders Doctor BASILIA 1.2.840.114 [id number] 00:00:00 00:00:00 Only Unassigned, MONIQUE [id number] [place] [facility] 4.2.7.[id number] [facility] 2020-10-30 2020-10-30 Orders Doctor CUI 1.2.840.114 [id number] Univers 00:00:00 00:00:00 Only Unassigned, MONIQUE [id number] ity of [place] [facility] 4.2.7.2.686 Jeff as [id number] [address] 2020-09-26 2020-09-26 Telephone [facility] 1.2.840.114 [id number] 00:00:00 00:00:00 [facility] [id number] CLINICS 4.2.7.2.686 [id number] [facility] 2020-09-26 2020-09-26 Telephone [facility] 1.2.840.114 [id number] Univers 00:00:00 00:00:00 [facility] [id number] i ty of CLINICS 4[place]2.[place] [id number] [address] 2020-09-01 2020-09-01 Orders Doctor CUI 1.2.840.114 [id number] 00:00:00 00:00:00 Only Unassigned, MONIQUE 350.1.13.10 [place] [facility] 4.2.7.2.686 [id number] [id number] 2020-09-01 2020-09-01 Orders Doctor BASILIA 1.2.840.114 [id number] Univers 00:00:00 00:00:00 Only Unassigned, MONIQUE [id number] ity of [place] [facility] 4.2.7.2.686 Jeff as [id number] [facility] 009 Branch 2020-08-25 2020-08-25 Transition Tuan Peters 1.2.840.114 [id number] 00:00:00 00:00:00 of Care Ruchi Braswell [id number] [place] 4.2.7.2.686 [id number] [facility] 2020-08-25 2020-08-25 Transition Tuan Peters 1.2.840.114 [id number] [facility] 00:00:00 00:00:00 of Care Ruchi Braswell [id number] it y of [place]2.[place] [id number] [address] 2020-08-21 2020-08-23 [facility] Ayleen 1.2.840.114 [id number] 01:07:00 18:35:00 Encounter Kelly Amaya [id number] [facility] 4.2.7.2.[id number] [facility] 2020-08-21 2020-08-23 [facility]. 2.840.114 [id number] [facility] 01:07:00 18:35:00 Encounter Nicci Mukul Kika Monique 350.1.13. 10 ity [facility] 4.2.7.2.686 Jeff as [id number] [address] Results Test Description Test Time Test Comments Results Result Comments Source POCT GLUCOSE (AUTOMATED) 2020-12-17 15:43:35 Test Item Value Reference Range Interpretation Comme nts POCT GLU (test code = 8996065425) 129 mg/dL 70-110 H Lab Interpretation (test code = 59329-9) Abnormal [facility] METABOLIC PANEL (NA, K, CL, CO2, GLUCOSE, BUN, CREATININE, CA)2020-12-17 11:45:07 Test Item Value Reference Range Interpretation Comments NA (test code = 137 mmol/L 135-145 9434580819) K (test code = 3.5 mmol/L 3.5-5.0 4732344503) CL (test code = 103 mmol/L 98-108 3460963945) CO2 TOTAL (test code = 26 mmol/L 23-31 9080910030) AGAP (test code = 2-16 2600289797) BUN (test code = 11 mg/dL 7-23 4694574173) GLUCOSE (test code = 175 mg/dL 70-110 H 7639696584) CREATININE (test code = 0.62 mg/dL 0.60-1.25 5066323697) CALCIUM (test code = 9.0 mg/dL 8.6-10.6 4630380557) eGFR Calculation mL/min/1.73m2 (Non-) (test code = 8896490718) eGFR Calculation mL/min/1.73m2 () (test code = 5701453466) JAMES (test code = JAMES) Association of [...] tests). Lab Interpretation Abnormal (test code = 73058-3) [facility] WITH [id number] 11:07:27 Test Item Value Reference Range Interpretation [...] RDW-SD (test code = 45.2 fL 38.5-51.6 21220-8) RDW-CV (test code = 16.9 % 12.1-15.4 H 788-0) PLT (test code = See_Comment H [Automated 777-3) message] The sy stem which generated this result transmitted reference range : 150 - 328 10*3/ ?L. The reference r torito was not used to interpret this result as normal/abnormal . MPV (test code = 8.1 fL 9.8-13.0 L 93750-3) NRBC/100 WBC (test See_Comment [Automat ed code = 3482964506) message] The system which generated this result transmitted reference range : 0.0 - 10.0 /100 WBCs. The refer ence range was not u sed to interpret th is result as normal/abnormal . NRBC x10^3 (test code <0.01 See_Comment [Auto mated = 0507887723) message] The s ysteAFTER-MOUSE which generated this result transmitted reference range : 10*3/?L. The reference range was not used to interpret this result as normal/abnormal . GRAN MAT (NEUT) % 72.8 % (test code = 770-8) IMM GRAN % (test code 0.60 % = 7557308421) LYMPH % (test code = 18.4 % 736-9) MONO % (test code = 5.7 % 5905-5) EOS % (test code = 1.8 % 713-8) BASO % (test code = 0.7 % 706-2) GRAN MAT x10^3(ANC) 8.23 10*3/uL 1.99-6.95 H (test code = 5386588349) IMM GRAN x10^3 (test 0.07 10*3/uL 0.00-0.06 H code = 7258686276) LYMPH x10^3 (test code 2.08 10*3/uL 1.09-3.23 = 731-0) MONO x10^3 (test code 0.65 10*3/uL 0.36-1.02 = 742-7) EOS x10^3 (test code = 0.20 10*3/uL 0.06-0.53 711-2) BASO x10^3 (test code 0.08 10*3/uL 0.01-0.09 = 704-7) Lab Interpretation Abnormal (test code = 02367-7) [facility]2020-12-17 06:03:38 Test Item Value Reference Range Interpretation Comments POCT GLU (test code = 5890472510) 75 mg/dL 70-110 Lab Interpretation (test code = Normal 35100-8) [facility]IT[facility] B6, [id number] 00:01:00 Test Item Value Reference Range Interpretation Comments VIT B6 (test code = 13.1 nmol/L 20.0-125.0 L INTERPRE TIVE 24485-8) INFORMATION: Vi tamin B6 (Pyridoxal 5-Phosphate) Pyridoxal 5'-phosphate me asured in a specimen collected follo wing an 8-hour or overnight fast accurately clara cates vitamin B6 nutritional sta tus. Non-fasting spe cimen concentration reflects recent vitamin intake. This test was develo ped and its perform ance characteristics determined by [facility]. I t has not been cleare d or approved by the US Food and Drug Administration. This test was perfor med in a CLIA certifie d laboratory and is intended for cl inical purposes.Perfor med By: [employer] [place] [address] [id number] Director: Namrata Klein MD Lab Interpretation Abnormal (test code = 63394-8) [facility] TIBIA FIBULA 2 VW [id number] 23:57:09 Tricompartmental knee joint osteoarthrosis.XR TIBIA FIBULA [...] No acute fracture or dislocation.IMPRESSIONTricompartmental knee joint osteoarthrosis.General acute hospital GLUCOSE (AUTOMATED) 2020-12-16 23:27:00 Test Item Value Reference Range Interpretation Comments POCT GLU (test code = 5702792134) 114 mg/dL 70-110 H Lab Interpretation (test code = Abnormal 01153-2) General acute hospital GLUCOSE (AUTOMATED)2020-12-16 20:12:00 Test Item Value Reference Range Interpretation Comments POCT GLU (test code = 0653062652) 105 mg/dL 70-110 Lab Interpretation (test code = Normal 86509-4) General acute hospital GLUCOSE (AUTOMATED)2020-12-16 14:44:00 Test Item Value Reference Range Interpretation Comments POCT GLU (test code = 4607043867) 153 mg/dL 70-110 H Lab Interpretation (test code = Abnormal 99295-2) [facility] METABOLIC PANEL (NA, K, CL, CO2, GLUCOSE, BUN, CREATININE, CA)2020-12-16 14:23:00 Test Item Value Reference Range Interpretation Comments NA (test code = 138 mmol/L 135-145 7561705987) K (test code = 3.4 mmol/L 3.5-5.0 L 0779715975) CL (test code = 100 mmol/L 98-108 0900675172) CO2 TOTAL (test code = 31 mmol/L 23-31 5365138561) AGAP (test code = 2-16 0663617066) BUN (test code = 11 mg/dL 7-23 5530070848) GLUCOSE (test code = 162 mg/dL 70-110 H 3101276253) CREATININE (test code = 0.64 mg/dL 0.60-1.25 3444485353) CALCIUM (test code = 8.9 mg/dL 8.6-10.6 3956920466) eGFR Calculation mL/min/1.73m2 (Non-) (test code = 4417236148) eGFR Calculation mL/min/1.73m2 () (test code = 4854730907) JAMES (test code = JAMES) Association of [...] tests). Lab Interpretation Abnormal (test code = 41401-2) [facility] WITH [id number] 14:05:00 Test Item Value Reference Range Interpretation [...] RDW-SD (test code = 45.4 fL 38.5-51.6 01665-6) RDW-CV (test code = 17.0 % 12.1-15.4 H 788-0) PLT (test code = See_Comment H [Automated 777-3) message] The sy stem which generated this result transmitted reference range : 150 - 328 10*3/ ?L. The reference r torito was not used to interpret this result as normal/abnormal . MPV (test code = 8.0 fL 9.8-13.0 L 41048-5) NRBC/100 WBC (test See_Comment [Automat ed code = 6362536520) message] The system which generated this result transmitted reference range : 0.0 - 10.0 /100 WBCs. The refer ence range was not u sed to interpret th is result as normal/abnormal . NRBC x10^3 (test code <0.01 See_Comment [Auto mated = 1637467610) message] The s ystem which generated this result transmitted reference range : 10*3/?L. The reference range was not used to interpret this result as normal/abnormal . GRAN MAT (NEUT) % 70.0 % (test code = 770-8) IMM GRAN % (test code 0.70 % = 5572650634) LYMPH % (test code = 20.5 % 736-9) MONO % (test code = 7.1 % 5905-5) EOS % (test code = 1.0 % 713-8) BASO % (test code = 0.7 % 706-2) GRAN MAT x10^3(ANC) 9.44 10*3/uL 1.99-6.95 H (test code = 4208631889) IMM GRAN x10^3 (test 0.09 10*3/uL 0.00-0.06 H code = 1618442702) LYMPH x10^3 (test code 2.76 10*3/uL 1.09-3.23 = 731-0) MONO x10^3 (test code 0.96 10*3/uL 0.36-1.02 = 742-7) EOS x10^3 (test code = 0.13 10*3/uL 0.06-0.53 711-2) BASO x10^3 (test code 0.10 10*3/uL 0.01-0.09 H = 704-7) Lab Interpretation Abnormal (test code = 89033-5) [facility] Dallas[facility] Culture - Peripheral # [id number] 13:01:00 Test Item Value Reference Range Interpretation Comments Blood Culture-Aerobic No organisms No growth Previo us (test code = 18067-2) isolated prelim inary verified result was Culture In Progress on 12/11/2020 at 100 1 CSTPrevious preliminary verified result was No growth a t 24 hours on 12/12/2020 at 070 1 CSTPrevious preliminary verified result was No growth a t 48 hours on 12/13/2020 at 070 1 CSTPrevious preliminary verified result was No growth a t 72 hours on 12/14/2020 at 070 1 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 Blood No organisms No growth Previous Culture-Anaerobic isolated preliminar y (test code = 29100-8) verifi ed result was Culture In Progress on 12/11/2020 at 100 1 CSTPrevious preliminary verified result was No growth a t 24 hours on 12/12/2020 at 070 1 CSTPrevious preliminary verified result was No growth a t 48 hours on 12/13/2020 at 070 1 CSTPrevious preliminary verified result was No growth a t 72 hours on 12/14/2020 at 070 1 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 Lab Interpretation Normal (test code = 17226-1) [facility] [id number] 13:01:00 Test Item Value Reference Range Interpretation Comments Blood Culture-Aerobic No organisms No growth Previo us (test code = 95949-1) isolated prelim inary verified result was Culture In Progress on 12/11/2020 at 100 1 CSTPrevious preliminary verified result was No growth a t 24 hours on 12/12/2020 at 070 1 CSTPrevious preliminary verified result was No growth a t 48 hours on 12/13/2020 at 070 1 CSTPrevious preliminary verified result was No growth a t 72 hours on 12/14/2020 at 070 1 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 Blood No organisms No growth Previous Culture-Anaerobic isolated preliminar y (test code = 90945-2) verifi ed result was Culture In Progress on 12/11/2020 at 100 1 CSTPrevious preliminary verified result was No growth a t 24 hours on 12/12/2020 at 070 1 CSTPrevious preliminary verified result was No growth a t 48 hours on 12/13/2020 at 070 1 CSTPrevious preliminary verified result was No growth a t 72 hours on 12/14/2020 at 070 1 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 No interval change in [...] of intra and extrahepatic biliary du ctal dilatation.General acute hospital GLUCOSE (AUTOMATED) 2020-12-15 19:28:00 Test Item Value Reference Range Interpretation Comments POCT GLU (test code = 9406996700) 140 mg/dL 70-110 H Lab Interpretation (test code = Abnormal 93897-2) [facility]2021-[facility]-05 15:26:00 Test Item Value Reference Range Interpretation Comments MAGNESIUM (test code = 6461966699) 2.2 mg/dL 1.7-2.4 Lab Interpretation (test code = Normal 65841-1) [facility] GLUCOSE (AUTOMATED)2020-12-15 15:15:00 Test Item Value Reference Range Interpretation Comments POCT GLU (test code = 8085658658) 181 mg/dL 70-110 H Lab Interpretation (test code = Abnormal 16529-9) [facility] (NA, K, CL, CO2, GLUCOSE, BUN, CREATININE, CA)2020-12-15 13:07:00 Test Item Value Reference Range Interpretation Comments NA (test code = 136 mmol/L 135-145 2288159812) K (test code = 3.6 mmol/L 3.5-5.0 3435385945) CL (test code = 96 mmol/L 98-108 L 4132317591) CO2 TOTAL (test code = 29 mmol/L 23-31 5971911282) AGAP (test code = 2-16 5610694188) BUN (test code = 12 mg/dL 7-23 8492949850) GLUCOSE (test code = 183 mg/dL 70-110 H 7493408457) CREATININE (test code = 0.70 mg/dL 0.60-1.25 5257259036) CALCIUM (test code = 9.2 mg/dL 8.6-10.6 5972425939) eGFR Calculation mL/min/1.73m2 (Non-) (test code = 6074607054) eGFR Calculation mL/min/1.73m2 () (test code = 7217248499) JAMES (test code = JAMES) Association of [...] tests). Lab Interpretation Abnormal (test code = 33539-8) [facility] WITH [id number] 12:32:00 Test Item Value Reference Range Interpretation Comments WBC (test code = See_Comment H [Automated 4390-2) message] The system which generated this result transmit ronan reference range : 4.20 - 10.70 10*3/?L. The reference range was not used to interpret this result as normal/abnormal . RBC (test code = See_Comment H [Automated 879-8) message] The system which generated this result [...] RDW-SD (test code = 44.4 fL 38.5-51.6 14394-7) RDW-CV (test code = 17.7 % 12.1-15.4 H 788-0) PLT (test code = See_Comment H [Automated 777-3) message] The system which generated this result transmit ronan reference range : 150 - 328 10*3/ ?L. The reference range was not u sed to interpret th is result as normal/abnormal . MPV (test code = 8.1 fL 9.8-13.0 L 45147-8) NRBC/100 WBC (test See_Comment [Automat ed code = 9447859151) message] The system which generated this result transmit ronan reference range : 0.0 - 10.0 /100 WBCs. The reference range was not used to interpret this result as normal/abnormal . NRBC x10^3 (test code <0.01 See_Comment [Auto mated = 2743021115) message] The system which generated this result transmit ronan reference range : 10*3/?L. The reference range was not used to interpret this result as normal/abnormal . GRAN MAT (NEUT) % 74.5 % (test code = 770-8) IMM GRAN % (test code 0.70 % = 7404041032) LYMPH % (test code = 17.4 % 736-9) MONO % (test code = 6.8 % 5905-5) EOS % (test code = 0.2 % 713-8) BASO % (test code = 0.4 % 706-2) GRAN MAT x10^3(ANC) 11.99 10*3/uL 1.99-6.95 H (test code = 2009577888) IMM GRAN x10^3 (test 0.11 10*3/uL 0.00-0.06 H code = 0150827583) LYMPH x10^3 (test code 2.80 10*3/uL 1.09-3.23 = 731-0) MONO x10^3 (test code 1.10 10*3/uL 0.36-1.02 H = 742-7) EOS x10^3 (test code = 0.03 10*3/uL 0.06-0.53 L 711-2) BASO x10^3 (test code 0.06 10*3/uL 0.01-0.09 = 704-7) Lab Interpretation Abnormal (test code = 40482-0) [facility] acute hospital GLUCOSE (AUTOMATED)2020-12-15 04:16:00 Test Item Value Reference Range Interpretation Comments POCT GLU (test code = 3434772207) 200 mg/dL 70-110 H Lab Interpretation (test code = Abnormal 55134-2) [facility] B1 (THIAMINE), WHOLE [id number] 00:30:00 Test Item Value Reference Range Interpretation Comments Vitamin B1, Whole 136 nmol/L 70-180 INTERPRETI VE INFORMATION: Blood (test code = Vitamin B 1, Whole Blood 86550-2) This assay júnior ures the concentration o f thiamine diphosphate (TD P), the primary active form of vitamin B1. Nick roximately 90 percent of v itamin B1 present in whol e blood is TDP. Thiamine a nd thiamine monoph osphate, which comprise the remaining 10 pe rcent, are not measured. T his test was developed a nd its performance characteristics determined by [facility]. I t has not been cleared or approved by the [place] Food and Drug Administration. This test was performed i n a CLIA certified labor atory and is intended for clinical purposes.Perfor med By: [facility] [place] [address] [id number] aboratory Director: Namrata Klein MD General acute hospital GLUCOSE (AUTOMATED)2020-12-14 23:35:00 Test Item Value Reference Range Interpretation Comments POCT GLU (test code = 6015797791) 151 mg/dL 70-110 H Lab Interpretation (test code = Abnormal 63231-9) General acute hospital GLUCOSE (AUTOMATED)2020-12-14 19:19:00 Test Item Value Reference Range Interpretation Comments POCT GLU (test code = 7038943905) 193 mg/dL 70-110 H Lab Interpretation (test code = Abnormal 32920-0) General acute hospital GLUCOSE (AUTOMATED)2020-12-14 15:22:00 Test Item Value Reference Range Interpretation Comments POCT GLU (test code = 5201721692) 221 mg/dL 70-110 H Lab Interpretation (test code = Abnormal 51478-0) General acute hospital GLUCOSE (AUTOMATED)2020-12-14 02:37:00 Test Item Value Reference Range Interpretation Comments POCT GLU (test code = 8411781258) 210 mg/dL 70-110 H Lab Interpretation (test code = Abnormal 16012-8) General acute hospital GLUCOSE (AUTOMATED)2020-12-13 23:33:00 Test Item Value Reference Range Interpretation Comments POCT GLU (test code = 5024642761) 182 mg/dL 70-110 H Lab Interpretation (test code = Abnormal 34050-4) General acute hospital GLUCOSE (AUTOMATED)2020-12-13 18:09:00 Test Item Value Reference Range Interpretation Comments POCT GLU (test code = 3581190577) 150 mg/dL 70-110 H Lab Interpretation (test code = Abnormal 99465-3) [facility] METABOLIC PANEL (NA, K, CL, CO2, GLUCOSE, BUN, CREATININE, CA)2020-12-13 16:27:00 Test Item Value Reference Range Interpretation Comments NA (test code = 136 mmol/L 135-145 4066045844) K (test code = 3.7 mmol/L 3.5-5.0 0469756555) CL (test code = 96 mmol/L 98-108 L 3776942874) CO2 TOTAL (test code = 29 mmol/L 23-31 9197354354) AGAP (test code = 2-16 8077181023) BUN (test code = 6 mg/dL 7-23 L 4474777058) GLUCOSE (test code = 212 mg/dL 70-110 H 1848547940) CREATININE (test code = 0.61 mg/dL 0.60-1.25 6781059497) CALCIUM (test code = 9.5 mg/dL 8.6-10.6 8131391527) eGFR Calculation mL/min/1.73m2 (Non-) (test code = 4116357627) eGFR Calculation mL/min/1.73m2 () (test code = 3499598964) JAMES (test code = JAMES) Association of [...] tests). Lab Interpretation Abnormal (test code = 42133-9) [facility] WITH [id number] 16:10:00 Test Item Value Reference Range Interpretation Comments WBC (test code = See_Comment H [Automated 5190-2) message] The sy stem which generated this result transmitted reference range : 4.20 - 10.70 10*3/?L. The reference range was not used to interpret this result as normal/abnormal . RBC (test code = See_Comment H [Automated 9-8) message] The sy stem which generated this [...] RDW-SD (test code = 43.3 fL 38.5-51.6 20531-3) RDW-CV (test code = 16.2 % 12.1-15.4 H 788-0) PLT (test code = See_Comment H [Automated 777-3) message] The sy stem which generated this result transmitted reference range : 150 - 328 10*3/ ?L. The reference r torito was not used to interpret this result as normal/abnormal . MPV (test code = 8.2 fL 9.8-13.0 L 56816-1) NRBC/100 WBC (test See_Comment [Automat ed code = 1040132532) message] The system which generated this result transmitted reference range : 0.0 - 10.0 /100 WBCs. The refer ence range was not u sed to interpret th is result as normal/abnormal . NRBC x10^3 (test code <0.01 See_Comment [Auto mated = 9868750869) message] The s ystem which generated this result transmitted reference range : 10*3/?L. The reference range was not used to interpret this result as normal/abnormal . GRAN MAT (NEUT) % 86.2 % (test code = 770-8) IMM GRAN % (test code 0.70 % = 8426805240) LYMPH % (test code = 10.2 % 736-9) MONO % (test code = 2.5 % 5905-5) EOS % (test code = 0.1 % 713-8) BASO % (test code = 0.3 % 706-2) GRAN MAT x10^3(ANC) 9.61 10*3/uL 1.99-6.95 H (test code = 9273827977) IMM GRAN x10^3 (test 0.08 10*3/uL 0.00-0.06 H code = 4265414159) LYMPH x10^3 (test code 1.14 10*3/uL 1.09-3.23 = 731-0) MONO x10^3 (test code 0.28 10*3/uL 0.36-1.02 L = 742-7) EOS x10^3 (test code = <0.03 0.06-0.53 L 711-2) BASO x10^3 (test code 0.03 10*3/uL 0.01-0.09 = 704-7) Lab Interpretation Abnormal (test code = 48103-3) [facility]2020-12-13 14:16:00 Test Item Value Reference Range Interpretation Comments POCT GLU (test code = 0762913731) 236 mg/dL 70-110 H Lab Interpretation (test code = Abnormal 10809-0) [facility] COVID [id number] 04:58:00COVID DMT InterpretationInterpretation/Recommendations: Molecular NAAT Tests for [...] COVID-19 testing the patient has had at [facility], including molecular NAAT testing (more commonly known as PCR testing and Rapid ID Now testing) and antibody testing. It does not take into account any testing that a patient has had outside of the [facility] medical record. [facility] LABORATORY SERVICESCOVID Resu [id number]-[id number] Rapid ID NOW (no units) ? ? Date ? Value ? 12/11/2020 ? Not Detected ? ? ? 11/16/2020 ? Not Detected ? ? ? 08/21/2020 ?Not Detected ? [facility]Un[facility] 2020-12-13 03:11:00 Test Item Value Reference Range Interpretation Comments POCT GLU (test code = 8581326648) 171 mg/dL 70-110 H Lab Interpretation (test code = Abnormal 10518-0) General acute hospital GLUCOSE (AUTOMATED)2020-12-13 00:00:00 Test Item Value Reference Range Interpretation Comments POCT GLU (test code = 9803136275) 118 mg/dL 70-110 H Lab Interpretation (test code = Abnormal 47811-8) General acute hospital GLUCOSE (AUTOMATED)2020-12-12 20:29:00 Test Item Value Reference Range Interpretation Comments POCT GLU (test code = 4139875989) 173 mg/dL 70-110 H Lab Interpretation (test code = Abnormal 18065-8) [facility] Dallas[facility] ABDOMEN [id number] 19:56:17 1. ?Hepatic steatosis. However, limited evaluation [...] main portal veinwasevaluated with color Doppler imaging. Skin Former images were obtainedfor the record. COMPARISON: Ultrasound [...] normal where visualized. SPLEEN:No images were obtained. [facility], Radiant Results Inft User - 12/12/2020 1:57 PM CSTEXAM: US ABDOMEN LIMITEDHISTORY: 70 years-old male with RUQ ultrasound to assess for common bileduct dilation .TECHNIQUE: Limited abdominal ultrasound focused on the liver, biliarysystem, pancreas, and spleen was performed. The main portal vein wasevaluated with color Doppler imaging. Skin Former images were obtainedfor the record.COMPARISON: Ultrasound abdomen [...] this study and agree with the abovereport. [facility]2020-12-12 19:24:00 Test Item Value Reference Range Interpretation Comments POCT GLU (test code = 9535388741) 230 mg/dL 70-110 H Lab Interpretation (test code = Abnormal 14418-3) [facility] DallasXR CHEST 1 [id number] 15:16:46 Low lung volumes with mild perihilar [...] have reviewed thisstudy and agree with theabove report.[facility]2020-12-12 14:34:00 Test Item Value Reference Range Interpretation Comments POCT GLU (test code = 5623265019) 225 mg/dL 70-110 H Lab Interpretation (test code = Abnormal 40092-7) [facility] Dallas[facility]INE [id number] 13:28:00 Test Item Value Reference Range Interpretation Comments URINE CULTURE (test < 10,000 CFU/mL mixed code = 630-4) aerobic organisms - suggests endogenous microbial contamination [facility] Dallas[facility] Metabolic Panel (NA, K, CL, CO2, GLUCOSE, BUN, CREATININE, CA)2020-12-12 10:05:00 Test Item Value Reference Range Interpretation Comments NA (test code = 136 mmol/L 135-145 8652998227) K (test code = 3.5 mmol/L 3.5-5.0 1441929300) CL (test code = 100 mmol/L 98-108 5554656868) CO2 TOTAL (test code = 31 mmol/L 23-31 7379043291) AGAP (test code = 2-16 1492159060) BUN (test code = 7 mg/dL 7-23 4420970188) GLUCOSE (test code = 259 mg/dL 70-110 H 5139766103) CREATININE (test code = 0.63 mg/dL 0.60-1.25 3829470350) CALCIUM (test code = 8.5 mg/dL 8.6-10.6 L 3024679406) eGFR Calculation mL/min/1.73m2 (Non-) (test code = 3554815604) eGFR Calculation mL/min/1.73m2 () (test code = 6384193494) JAMES (test code = JAMES) Association of [...] tests). Lab Interpretation Abnormal (test code = 79699-9) [facility] DallasMagnesium [id number] 10:05:00 Test Item Value Reference Range Interpretation Comments MAGNESIUM (test code = 4289142429) 1.9 mg/dL 1.7-2.4 Lab Interpretation (test code = Normal 35508-2) [facility] with [id number] 09:48:00 Test Item Value Reference Range Interpretation Comments WBC (test code = See_Comment [Automated 4787-2) message] The sy stem which generated this result transmitted reference range : 4.20 - 10.70 10*3/?L. The reference range was not used to interpret this result as normal/abnormal . RBC (test code = See_Comment [Automated 045-8) message] The sy stem which generated this [...] RDW-SD (test code = 46.0 fL 38.5-51.6 47056-3) RDW-CV (test code = 16.1 % 12.1-15.4 H 788-0) PLT (test code = See_Comment H [Automated 777-3) message] The sy stem which generated this result transmitted reference range : 150 - 328 10*3/ ?L. The reference r torito was not used to interpret this result as normal/abnormal . MPV (test code = 8.6 fL 9.8-13.0 L 01064-1) NRBC/100 WBC (test See_Comment [Automat ed code = 0172901499) message] The system which generated this result transmitted reference range : 0.0 - 10.0 /100 WBCs. The refer ence range was not u sed to interpret th is result as normal/abnormal . NRBC x10^3 (test code <0.01 See_Comment [Auto mated = 8964491792) message] The s ystem which generated this result transmitted reference range : 10*3/?L. The reference range was not used to interpret this result as normal/abnormal . GRAN MAT (NEUT) % 70.2 % (test code = 770-8) IMM GRAN % (test code 0.30 % = 2063219322) LYMPH % (test code = 18.8 % 736-9) MONO % (test code = 5.0 % 5905-5) EOS % (test code = 5.2 % 713-8) BASO % (test code = 0.5 % 706-2) GRAN MAT x10^3(ANC) 6.05 10*3/uL 1.99-6.95 (test code = 9854757795) IMM GRAN x10^3 (test 0.03 10*3/uL 0.00-0.06 code = 1718336296) LYMPH x10^3 (test code 1.62 10*3/uL 1.09-3.23 = 731-0) MONO x10^3 (test code 0.43 10*3/uL 0.36-1.02 = 742-7) EOS x10^3 (test code = 0.45 10*3/uL 0.06-0.53 711-2) BASO x10^3 (test code 0.04 10*3/uL 0.01-0.09 = 704-7) Lab Interpretation Abnormal (test code = 53961-3) General acute hospital GLUCOSE (AUTOMATED)2020-12-12 03:42:00 Test Item Value Reference Range Interpretation Comments POCT GLU (test code = 196 mg/dL 70-110 H Notifi ed Provider [id number]) Lab Interpretation (test Abnormal code = 59259-1) [facility] 02:24:00 Test Item Value Reference Range Interpretation Comments FOLATE SER (test code = 7283685893) 5.8 ng/mL 3.0-20.0 Lab Interpretation (test code = Normal 34191-4) [facility]ITAMIN B12, [id number] 00:55:00 Test Item Value Reference Range Interpretation Comments VIT B12 (test code = 844 pg/mL 240-930 5869209016) JAMES (test code = JAMES) Biotin has been reported to cause a positive bias, interpret results relative to patient's use of biotin. Lab Interpretation (test Normal code = 98510-7) General acute hospital GLUCOSE (AUTOMATED)2020-12-12 00:14:00 Test Item Value Reference Range Interpretation Comments POCT GLU (test code = 7876898210) 164 mg/dL 70-110 H Lab Interpretation (test code = Abnormal 13704-3) [facility] DallasCREATINE [id number] 23:42:00 Test Item Value Reference Range Interpretation Comments CK (test code = 5747209264) <20 33-194 L Lab Interpretation (test code = Abnormal 96708-1) [facility] DallasTHYROID STIMULATING [id number] 23:17:00 Test Item Value Reference Range Interpretation Comments TSH (test code = See_Comment Biotin has been 0393298166) reported to cau se a negative bias, interpret resul ts relative to pat ient's use of biotin. [Automated mess age] The system Inaika generated this result transmitted ref erence range: 0.45 - 4 .70 mIU/L. The refe rence range was not u sed to interpret this result as normal/abnor mal. Lab Interpretation (test Normal code = 41450-5) [facility] DallasXR HIPS 3 VW [id number] 21:41:53No appreciable fracture lines. RL: 6200 ICAL [...] osseous erosions.IMPRESSIONNo appreciable fracture lines.RL: 6200 [facility]ALCIT[facility]IN2021-[facility]-01 20:00:00 Test Item Value Reference Range Interpretation Comments Procalcitonin (test 0.13 ng/mL <0.07 H code = 6812889064) JAMES (test code = JAMES) INTERPRETATION OF [...] lung abscess/empyema. For further information please refer to:[email or web address] Lab Interpretation Abnormal (test code = 02098-5) [facility]PO[facility] GLUCOSE (AUTOMATED)2020-12-11 19:07:00 Test Item Value Reference Range Interpretation Comments POCT GLU (test code = 0862818171) 274 mg/dL 70-110 H Lab Interpretation (test code = Abnormal 59345-5) [facility]MAGNESIUM2021-03-01 18:31:00 Test Item Value Reference Range Interpretation Comments MAGNESIUM (test code = 7711569741) 1.9 mg/dL 1.7-2.4 Lab Interpretation (test code = Normal 08433-8) [facility] DallasFERRITIN [id number] 18:31:00 Test Item Value Reference Range Interpretation Comments FERRITIN (test code = 178.0 ng/mL 18.0-464.0 4465780202) JAMES (test code = JAMES) Biotin has been reported to cause a negative bias, interpret results relative to patient's use of biotin. Lab Interpretation (test Normal code = 51510-6) [facility] DallasCT HEAD WO [id number] 14:36:47 No acute intracranial abnormality. Dilated ventricles [...] reviewed this study and agree with the abovereport.[facility] DallasURINALYSIS2021-03-01 14:28:00 Test Item Value Reference Range Interpretation Comments APPEARANCE (test code = Clear Clear 0454504338) COLOR (test code = Yellow Yellow 2431857778) PH (test code = 4.8-8.0 2262278536) SP GRAVITY (test code = 1.003-1.030 0675016036) GLU U QUAL (test code = 500 mg/dL Normal A 4174322207) BLOOD (test code = Negative Negative 6369851353) KETONES (test code = 5 mg/dL Negative A 6267939756) PROTEIN (test code = Negative Negative 2887-8) UROBILIN (test code = Normal Normal 7886719289) BILIRUBIN (test code = Negative Negative 6612214932) NITRITE (test code = Negative Negative 8259431708) LEUK RYAN (test code = Negative Negative 2104460516) RBC/HPF (test code = See_Comment [Autom ated message] 9280982005) The system Inaika generated this result transmit ronan reference range : 0 - 3 HPF. The refe rence range was not u sed to interpret th is result as normal/abnormal . WBC/HPF (test code = See_Comment [Autom ated message] 0259294859) The system Inaika generated this result transmit ronan reference range : 0 - 5 HPF. The refe rence range was not u sed to interpret th is result as normal/abnormal . BACTERIA (test code = Negative Negative 0405198529) MUCOUS (test code = Slight Negative LPF A 1691560083) SQ EPITH (test code = HPF 7954051832) Lab Interpretation (test Abnormal code = 42912-9) [facility]COVID-19 (ID NOW RAPID TESTING)2020-12-11 13:10:00 Test Item Value Reference Range Interpretation Comments SARS-CoV-2 Rapid ID NOW Not Detected Not Detected (test code = 51134-8) JAMES (test code = JAMES) ID NOW COVID-19 Assay is an isothermal nucleic acid amplification test intended for the qualitative detection of nucleic acid from SARS-CoV-2 viral RNA in nasopharyngeal (JIRA ADMINISTRATOR) specimens. It is used under Emergency Use [...] indicated. Lab Interpretation Normal (test code = 74684-3) [facility]. METABOLIC PANEL (68829)2020-12-11 12:29:00 Test Item Value Reference Range Interpretation Comments NA (test code = 136 mmol/L 135-145 8885146576) K (test code = 3.5 mmol/L 3.5-5.0 1027467655) CL (test code = 95 mmol/L 98-108 L 7600626467) CO2 TOTAL (test code = 35 mmol/L 23-31 H 7886715201) AGAP (test code = 2-16 4719741369) BUN (test code = 9 mg/dL 7-23 5728824946) GLUCOSE (test code = 329 mg/dL 70-110 H 8880148405) CREATININE (test code = 0.72 mg/dL 0.60-1.25 4804284002) TOTAL BILI (test code = 0.6 mg/dL 0.1-1.3 3904747831) CALCIUM (test code = 9.0 mg/dL 8.6-10.6 6439325367) T PROTEIN (test code = 6.8 g/dL 6.3-8.2 9940138619) ALBUMIN (test code = 3.8 g/dL 3.5-5.0 4478335362) ALK PHOS (test code = 288 U/L 34-122 H 6591739693) ALTv (test code = 46 U/L 5-50 2-6) AST(SGOT) (test code = 38 U/L 13-40 9333284217) eGFR Calculation mL/min/1.73m2 (Non-) (test code = 2372314851) eGFR Calculation mL/min/1.73m2 () (test code = 9478961157) JAMES (test code = JAMES) Association of [...] tests). Lab Interpretation Abnormal (test code = 08496-4) [facility] DallasLactic Acid Whole [id number] 12:23:00 Test Item Value Reference Range Interpretation Comments LACTIC ACID (test code = 2.09 mmol/L 0.50-2.20 7150101457) Lab Interpretation (test code = Normal 75865-3) [facility] DallasCB WITH [id number] 12:17:00 Test Item Value Reference Range Interpretation [...] RDW-SD (test code = 44.9 fL 38.5-51.6 47375-6) RDW-CV (test code = 15.9 % 12.1-15.4 H 788-0) PLT (test code = See_Comment H [Automated 777-3) message] The sy stem which generated this result transmitted reference range : 150 - 328 10*3/ ?L. The reference r torito was not used to interpret this result as normal/abnormal . MPV (test code = 8.3 fL 9.8-13.0 L 64261-4) NRBC/100 WBC (test See_Comment [Automat ed code = 6960849448) message] The system which generated this result transmitted reference range : 0.0 - 10.0 /100 WBCs. The refer ence range was not u sed to interpret th is result as normal/abnormal . NRBC x10^3 (test code <0.01 See_Comment [Auto mated = 2004439766) message] The s ystem which generated this result transmitted reference range : 10*3/?L. The reference range was not used to interpret this result as normal/abnormal . GRAN MAT (NEUT) % 77.9 % (test code = 770-8) IMM GRAN % (test code 0.50 % = 2793865771) LYMPH % (test code = 12.2 % 736-9) MONO % (test code = 5.2 % 5905-5) EOS % (test code = 3.7 % 713-8) BASO % (test code = 0.5 % 706-2) GRAN MAT x10^3(ANC) 9.57 10*3/uL 1.99-6.95 H (test code = 6723342231) IMM GRAN x10^3 (test 0.06 10*3/uL 0.00-0.06 code = 5881804432) LYMPH x10^3 (test code 1.50 10*3/uL 1.09-3.23 = 731-0) MONO x10^3 (test code 0.64 10*3/uL 0.36-1.02 = 742-7) EOS x10^3 (test code = 0.46 10*3/uL 0.06-0.53 711-2) BASO x10^3 (test code 0.06 10*3/uL 0.01-0.09 = 704-7) Lab Interpretation Abnormal (test code = 16618-0) [facility] DallasLAB ONLY COVID [id number] 18:43:00COVID DMT InterpretationInterpretation/Recommendations: Molecular NAAT Test Results [...] a nasopharyngeal sample, there is approximately a oge-wb-sdrxo chance that the patient was infected and [...] based upon aggregate data pooled from the [facility] medical record including both current and prior COVID-19 related testing results for the following tests offered at our institution:A. Tests for the Identification of SARS-CoV-2 RNA:SARS-CoV-2 PCR assays including [place] Aptima, [place] Fusion, Barrett RealTime, and [employer] Xpert Xpress. SARS-CoV-2 Rapid ID NOW by the ID NOW assay. ? B. Tests for the Identification of SARS-CoV-2 Antibodies: Chemiluminescent immunoassays including Access SARS-CoV-2 IgM (DXI 600), PlanbusS Rhsp-SSEI-IjX-2 IgG (Vitros 5600 and Vitros 3600), and Barrett SARS-CoV-2 IgG (CAPACITOR PACK PRESS OPERATOR I System). These interpretation comments assume that only the above testing was utilized and that the approved acceptable specimen type(s) were used for a given test. These interpretations are autopopulated into [employer] based on computerized algorithms matching an interpretation code number to the patient's set of test results. While a clinical pathologist evaluates the combinations for clinical accuracy, clinical correlation is recommended as it may not take into account very remote prior testing. Furthermore, it does not consider testing a patient may have had outside of the [facility] system. Additionally, it should be noted that the computerized algorithm treats the results for PCR testing and Rapid ID NOW testing (also PCR) synonymously, and thus, refers to both testing methodologies as PCR tests. Given that the sensitivity of [facility]'s Rapid ID NOW testingplatform is [...] panel may be beneficial in this setting. [facility] LABORATORY SERVICESCOVID KpemkvzHUSK-YlP-5 Rapid ID NOW (no units) ? ? Date ? Value ? 08/21/2020 ? Not Detected ? [facility]ORATORY SERVICESUnMary [facility]2020-08-23 18:25:00 Test Item Value Reference Range Interpretation Comments POCT GLU (test code = 9104717760) 297 mg/dL 70-110 H Lab Interpretation (test code = Abnormal 43263-6) General acute hospital GLUCOSE (AUTOMATED)2020-08-23 14:25:00 Test Item Value Reference Range Interpretation Comments POCT GLU (test code = 8882476136) 181 mg/dL 70-110 H Lab Interpretation (test code = Abnormal 18647-3) [facility] Dallas[facility] Metabolic Panel (NA, K, CL, CO2, GLUCOSE, BUN, CREATININE, CA)2020-08-23 11:45:00 Test Item Value Reference Range Interpretation Comments NA (test code = 132 mmol/L 135-145 L 4206525148) K (test code = 4.0 mmol/L 3.5-5 9342218494) CL (test code = 96 mmol/L 98-108 L 5174602827) CO2 TOTAL (test code = 33 mmol/L 23-31 H 2029458782) AGAP (test code = 2-16 2031048975) BUN (test code = 9 mg/dL 7-23 8571952738) GLUCOSE (test code = 176 mg/dL 70-110 H 9304287076) CREATININE (test code = 0.66 mg/dL 0.6-1.25 3880585981) CALCIUM (test code = 8.5 mg/dL 8.6-10.6 L 5439553762) eGFR Calculation mL/min/1.73m2 (Non-) (test code = 2588823852) eGFR Calculation mL/min/1.73m2 () (test code = 4783001127) JAMES (test code = JAMES) Association of [...] tests). Lab Interpretation Abnormal (test code = 92549-1) [facility] DallasMagnesium [id number] 11:45:00 Test Item Value Reference Range Interpretation Comments MAGNESIUM (test code = 8052480205) 2.0 mg/dL 1.7-2.4 Lab Interpretation (test code = Normal 14457-4) [facility] with Rgnylsduagse3704-58-32 11:38:00 Test Item Value Reference Range Interpretation [...] RDW-SD (test code = 41.8 fL 38.5-51.6 46832-7) RDW-CV (test code = 14.3 % 12.1-15.4 788-0) PLT (test code = See_Comment H [Automated 777-3) message] The sy stem which generated this result transmitted reference range : 150 - 328 10*3/ ?L. The reference r torito was not used to interpret this result as normal/abnormal . MPV (test code = 8.0 fL 9.8-13 L 43068-7) NRBC/100 WBC (test See_Comment [Automat ed code = 4753420024) message] The system which generated this result transmitted reference range : 0.0 - 10.0 /100 WBCs. The refer ence range was not u sed to interpret th is result as normal/abnormal . NRBC x10^3 (test code <0.01 See_Comment [Auto mated = 9391722623) message] The s ystem which generated this result transmitted reference range : 10*3/?L. The reference range was not used to interpret this result as normal/abnormal . GRAN MAT (NEUT) % 61.5 % (test code = 770-8) IMM GRAN % (test code 2.00 % = 4614890664) LYMPH % (test code = 25.5 % 736-9) MONO % (test code = 6.3 % 5905-5) EOS % (test code = 3.7 % 713-8) BASO % (test code = 1.0 % 706-2) GRAN MAT x10^3(ANC) 5.29 10*3/uL 1.99-6.95 (test code = 9845579374) IMM GRAN x10^3 (test 0.17 10*3/uL 0-0.06 H code = 1744158790) LYMPH x10^3 (test code 2.19 10*3/uL 1.09-3.23 = 731-0) MONO x10^3 (test code 0.54 10*3/uL 0.36-1.02 = 742-7) EOS x10^3 (test code = 0.32 10*3/uL 0.06-0.53 711-2) BASO x10^3 (test code 0.09 10*3/uL 0.01-0.09 = 704-7) Lab Interpretation Abnormal (test code = 89742-7) General acute hospital GLUCOSE (AUTOMATED)2020-08-23 10:22:00 Test Item Value Reference Range Interpretation Comments POCT GLU (test code = 6250571556) 164 mg/dL 70-110 H Lab Interpretation (test code = Abnormal 23200-4) General acute hospital GLUCOSE (AUTOMATED)2020-08-23 05:56:00 Test Item Value Reference Range Interpretation Comments POCT GLU (test code = 9347179561) 242 mg/dL 70-110 H Lab Interpretation (test code = Abnormal 53655-6) General acute hospital GLUCOSE (AUTOMATED)2020-08-23 03:02:00 Test Item Value Reference Range Interpretation Comments POCT GLU (test code = 4620360948) 210 mg/dL 70-110 H Lab Interpretation (test code = Abnormal 27511-0) General acute hospital GLUCOSE (AUTOMATED)2020-08-22 23:40:00 Test Item Value Reference Range Interpretation Comments POCT GLU (test code = 4701541013) 267 mg/dL 70-110 H Lab Interpretation (test code = Abnormal 98229-1) General acute hospital GLUCOSE (AUTOMATED)2020-08-22 19:08:00 Test Item Value Reference Range Interpretation Comments POCT GLU (test code = 0443288102) 191 mg/dL 70-110 H Lab Interpretation (test code = Abnormal 08933-0) General acute hospital GLUCOSE (AUTOMATED)2020-08-22 13:50:00 Test Item Value Reference Range Interpretation Comments POCT GLU (test code = 1703985507) 174 mg/dL 70-110 H Lab Interpretation (test code = Abnormal 67674-0) [facility] DallasURINE [id number] 12:59:00 Test Item Value Reference Range Interpretation Comments URINE CULTURE (test No aerobic growth (< code = 630-4) 1000 CFU/mL) [facility] with Ggijbvennkbm6112-74-33 11:28:00 Test Item Value Reference Range Interpretation Comments WBC (test code = See_Comment [Automated 6690-2) message] The sy stem which generated this result transmitted reference range : 4.20 - 10.70 10*3/?L. The reference range was not used to interpret this result as normal/abnormal . RBC (test code = See_Comment L [Automated 529-8) message] The sy stem which generated this [...] RDW-SD (test code = 42.5 fL 38.5-51.6 40642-3) RDW-CV (test code = 14.5 % 12.1-15.4 788-0) PLT (test code = See_Comment H [Automated 777-3) message] The sy stem which generated this result transmitted reference range : 150 - 328 10*3/ ?L. The reference r torito was not used to interpret this result as normal/abnormal . MPV (test code = 8.0 fL 9.8-13 L 07191-8) NRBC/100 WBC (test See_Comment [Automat ed code = 5450648763) message] The system which generated this result transmitted reference range : 0.0 - 10.0 /100 WBCs. The refer ence range was not u sed to interpret th is result as normal/abnormal . NRBC x10^3 (test code <0.01 See_Comment [Auto mated = 6353728185) message] The s ystem which generated this result transmitted reference range : 10*3/?L. The reference range was not used to interpret this result as normal/abnormal . GRAN MAT (NEUT) % 69.1 % (test code = 770-8) IMM GRAN % (test code 2.20 % = 2961672502) LYMPH % (test code = 20.9 % 736-9) MONO % (test code = 5.8 % 5905-5) EOS % (test code = 1.0 % 713-8) BASO % (test code = 1.0 % 706-2) GRAN MAT x10^3(ANC) 6.51 10*3/uL 1.99-6.95 (test code = 2121379702) IMM GRAN x10^3 (test 0.21 10*3/uL 0-0.06 H code = 5025410964) LYMPH x10^3 (test code 1.97 10*3/uL 1.09-3.23 = 731-0) MONO x10^3 (test code 0.55 10*3/uL 0.36-1.02 = 742-7) EOS x10^3 (test code = 0.09 10*3/uL 0.06-0.53 711-2) BASO x10^3 (test code 0.09 10*3/uL 0.01-0.09 = 704-7) BASO STIPPLING (test Present A code = 703-9) BANDS (test code = Increased A 8678285730) TOXIC CHANGES (test Present A code = 803-7) Lab Interpretation Abnormal (test code = 53189-9) [facility] Metabolic Panel (NA, K, CL, CO2, GLUCOSE, BUN, CREATININE, CA)2020-08-22 11:12:00 Test Item Value Reference Range Interpretation Comments NA (test code = 135 mmol/L 135-145 3036052946) K (test code = 3.6 mmol/L 3.5-5 3522198469) CL (test code = 99 mmol/L 98-108 8734861018) CO2 TOTAL (test code = 31 mmol/L 23-31 9896257492) AGAP (test code = 2-16 1059091352) BUN (test code = 9 mg/dL 7-23 9761437791) GLUCOSE (test code = 198 mg/dL 70-110 H 7839381104) CREATININE (test code = 0.72 mg/dL 0.6-1.25 7214856942) CALCIUM (test code = 8.3 mg/dL 8.6-10.6 L 4607146825) eGFR Calculation mL/min/1.73m2 (Non-) (test code = 7380510267) eGFR Calculation mL/min/1.73m2 () (test code = 2530837945) JAMES (test code = JAMES) Association of [...] tests). Lab Interpretation Abnormal (test code = 25084-1) [facility] DallasMagnesium [id number] 11:12:00 Test Item Value Reference Range Interpretation Comments MAGNESIUM (test code = 0072807137) 2.0 mg/dL 1.7-2.4 Lab Interpretation (test code = Normal 46997-8) [facility] DallasLipid Panel (Total Cholesterol, Triglycerides, HDL) - Yavnblb7864-32-58 11:12:00 Test Item Value Reference Range Interpretation Comments CHOL (test code = 155 mg/dL 120-200 9956728169) HDL (test code = 42 mg/dL >40 9190808662) HDLC RATIO (test code = See_Comment [Au tomated message] 8224812802) The system Inaika generated this result transmit ronan reference range : <=5.0. The refe rence range was not u sed to interpret th is result as normal/abnormal . TRIG (test code = 186 mg/dL 30-170 H 4718105204) LDL CHOL (test code = 76 mg/dL See_Comment [Auto mated message] 61509-9) The system Inaika generated this result transmit ronan reference range : <=160. The refe rence range was not u sed to interpret th is result as normal/abnormal . VLDL (test code = 37 mg/dL 5-60 4558745454) Lab Interpretation (test Abnormal code = 50876-1) [facility] DallasHEPATIC FUNCTION PANEL (17434) (ALB,T.PRO,BILI T,BU/BC,ALT,AST,ALK PHOS)2020-08-22 11:12:00 Test Item Value Reference Range Interpretation Comments TOTAL BILI (test code = 1233457370) 0.6 mg/dL 0.1-1.1 BILI UNCON (test code = 4645998140) 0.2 mg/dL 0.1-1.1 BILI CONJ (test code = 8230581492) 0.0 mg/dL 0-0.3 T PROTEIN (test code = 7050033883) 6.0 g/dL 6.3-8.2 L ALBUMIN (test code = 9667260161) 2.8 g/dL 3.5-5 L ALK PHOS (test code = 9023650856) 222 U/L 34-122 H ALTv (test code = 1742-6) 27 U/L 5-50 AST(SGOT) (test code = 0795253878) 30 U/L 13-40 Lab Interpretation (test code = Abnormal 86007-2) General acute hospital GLUCOSE (AUTOMATED)2020-08-22 10:11:00 Test Item Value Reference Range Interpretation Comments POCT GLU (test code = 1986978817) 196 mg/dL 70-110 H Lab Interpretation (test code = Abnormal 22172-5) General acute hospital GLUCOSE (AUTOMATED)2020-08-22 07:15:00 Test Item Value Reference Range Interpretation Comments POCT GLU (test code = 3378020601) 183 mg/dL 70-110 H Lab Interpretation (test code = Abnormal 85362-8) General acute hospital GLUCOSE (AUTOMATED)2020-08-22 02:30:00 Test Item Value Reference Range Interpretation Comments POCT GLU (test code = 9085833638) 295 mg/dL 70-110 H Lab Interpretation (test code = Abnormal 63780-7) General acute hospital GLUCOSE (AUTOMATED)2020-08-21 23:46:00 Test Item Value Reference Range Interpretation Comments POCT GLU (test code = 6282916417) 258 mg/dL 70-110 H Lab Interpretation (test code = Abnormal 90806-6) [facility] DallasC-REACTIVE [id number] 18:50:00 Test Item Value Reference Range Interpretation Comments CRP (test code = 7287410019) 15.5 mg/dL <0.8 H Lab Interpretation (test code = Abnormal 30908-4) [facility] DallasPO[facility]SE (AUTOMATED)2020-08-21 18:21:00 Test Item Value Reference Range Interpretation Comments POCT GLU (test code = 2852649604) 297 mg/dL 70-110 H Lab Interpretation (test code = Abnormal 90225-4) [facility] DallasETHANOL2020-11-09 16:24:00 Test Item Value Reference Range Interpretation Comments ALCOHOL (test code = <10 mg/dL 2584173029) JAMES (test code = Toxic Greater than or JAMES) equal to 80 mg/dL. NOTE: Whole blood values are approximately 10% to 15% lower than serum and plasma. [facility] DallasGAL/CLC ONLY - URINE DRUG (IMMUNOASSAY) - 4 ER [id number] 15:36:00 Test Item Value Reference Range Interpretation Comments AMPHET (test code = Negative Negative 3482565239) Cocaine Metabolite (test Negative Negative code = 1071373906) OPIATES (test code = Presumptive Positive Negative A 7572063792) THC (test code = Negative Negative 3118603703) JAMES (test code = JAMES) Urine Drug Cutoff Ranges Amphetamine: ? 1,000 ng/mLCocaine: ? 150 ng/mLOpiates: ? 300 ng/mLCannabinoids: ?50 ng/mL The results are to be used only for medical (i.e., treatment) purposes. Unconfirmed screening results must not be used for non-medical purposes (e.g., employment testing, legal testing). Lab Interpretation (test Abnormal code = 80533-3) [facility] ONLY - SYPHILIS IGG/[id number] 15:04:00 Test Item Value Reference Range Interpretation Comments Syphilis IgG/IgM (test Non-reactive Non-reactive code = 53955-0) JAMES (test code = JAMES) Non-reactive - No serologic evidence of T. pallidum infection. Cannot exclude incubating or early syphilis. Submit a second specimen in 2-4 weeks if syphilis is clinically suspected. Equivocal - Further testing to follow. Reactive - Further testing to follow. Lab Interpretation (test Normal code = 44973-0) [facility] [place] 14[place]52:00 Test Item Value Reference Range Interpretation Comments APPEARANCE (test code = Clear Clear 0236464772) COLOR (test code = Yellow Yellow 3815474883) PH (test code = 4.8-8.0 6073126174) SP GRAVITY (test code = 1.003-1.030 0959506155) GLU U QUAL (test code = 500 mg/dL Normal A 0759550902) BLOOD (test code = Negative Negative 5255204324) KETONES (test code = 20 mg/dL Negative A 2796711260) PROTEIN (test code = Negative Negative 2887-8) UROBILIN (test code = Normal Normal 8607286761) BILIRUBIN (test code = Negative Negative 6572003370) NITRITE (test code = Negative Negative 1838348338) LEUK RYAN (test code = Negative Negative 4531056583) RBC/HPF (test code = <1 See_Comment [Autom ated message] 9825541577) The system [employer] generated this result transmit ronan reference range : 0 - 3 HPF. The refe rence range was not u sed to interpret th is result as normal/abnormal . WBC/HPF (test code = See_Comment [Autom ated message] 5483905872) The system [employer] generated this result transmit ronan reference range : 0 - 5 HPF. The refe rence range was not u sed to interpret th is result as normal/abnormal . BACTERIA (test code = Negative Negative 2429661137) MUCOUS (test code = Slight Negative LPF A 9706105678) Lab Interpretation (test Abnormal code = 61931-8) [facility] [place]ACTIV[place] PARTIAL THRMPLAS [id number] 13:45:00 Test Item Value Reference Range Interpretation Comments APTT Patient (test code = See_Comment [ Automated message] 3173-2) The system [employer] generated this result transmitted ref erence range: 26 - 36 Seconds. The re ference range was not u sed to interpret this result as normal/abnor mal. Lab Interpretation (test Normal code = 90497-6) [facility] [place]PO[place] GLUCOSE (AUTOMATED)2020-08-21 13:45:00 Test Item Value Reference Range Interpretation Comments POCT GLU (test code = 4130230671) 246 mg/dL 70-110 H Lab Interpretation (test code = Abnormal 07697-7) [facility] [place]HIV 1/2 AG-AB WITH [id number] 12:32:00 Test Item Value Reference Range Interpretation Comments HIV Negative Negative Semi-quantitative (test code = 07880-9) JAMES (test code = Non-reactive for HIV-1 JAMES) antigen and HIV-1/HIV-2 antibodies. ?No laboratory evidence of HIV infection. ?Repeat in 2-4 weeks if acute HIV infection is suspected. [facility] WITH [id number] 12:18:00 Test Item Value Reference Range Interpretation Comments WBC (test code = See_Comment [Automated 2290-2) message] The sy stem which generated this [...] RDW-SD (test code = 44.4 fL 38.5-51.6 22402-1) RDW-CV (test code = 14.5 % 12.1-15.4 788-0) PLT (test code = See_Comment H [Automated 777-3) message] The sy stem which generated this result transmitted reference range : 150 - 328 10*3/ ?L. The reference r torito was not used to interpret this result as normal/abnormal . MPV (test code = 8.5 fL 9.8-13 L 74064-1) NRBC/100 WBC (test See_Comment [Automat ed code = 4930574925) message] The system which generated this result transmitted reference range : 0.0 - 10.0 /100 WBCs. The refer ence range was not u sed to interpret th is result as normal/abnormal . NRBC x10^3 (test code <0.01 See_Comment [Auto mated = 6979427432) message] The s ystem which generated this result transmitted reference range : 10*3/?L. The reference range was not used to interpret this result as normal/abnormal . GRAN MAT (NEUT) % 90.4 % (test code = 770-8) IMM GRAN % (test code 1.30 % = 3441336834) LYMPH % (test code = 7.1 % 736-9) MONO % (test code = 0.5 % 5905-5) EOS % (test code = 0.1 % 713-8) BASO % (test code = 0.6 % 706-2) GRAN MAT x10^3(ANC) 7.74 10*3/uL 1.99-6.95 H (test code = 9693550156) IMM GRAN x10^3 (test 0.11 10*3/uL 0-0.06 H code = 8510308716) LYMPH x10^3 (test code 0.61 10*3/uL 1.09-3.23 L = 731-0) MONO x10^3 (test code 0.04 10*3/uL 0.36-1.02 L = 742-7) EOS x10^3 (test code = <0.03 0.06-0.53 L 711-2) BASO x10^3 (test code 0.05 10*3/uL 0.01-0.09 = 704-7) POLYCHROMASIA (test 2+ See_Comment [Automa ronan code = 37169-1) message] The system which generated this result transmitted reference range : 2+. The referen ce range was not u sed to interpret th is result as normal/abnormal . BANDS (test code = Increased A 3053737930) Lab Interpretation Abnormal (test code = 83375-7) [facility] DallasPROCALCITONIN2020-11-09 11:48:00 Test Item Value Reference Range Interpretation Comments Procalcitonin (test 0.36 ng/mL <0.07 H code = 8254946694) JAMES (test code = JAMES) INTERPRETATION OF [...] lung abscess/empyema. For further information please refer to:[email or web address] Lab Interpretation Abnormal (test code = 60205-2) [facility] DallasLAPAATE [id number] 10:53:00 Test Item Value Reference Range Interpretation Comments LDH (test code = 1121117294) 351 U/L 300-600 Lab Interpretation (test code = Normal 70209-4) [facility] DallasSEDIMENTATION [id number] 10:07:00 Test Item Value Reference Range Interpretation Comments ESR (test code = See_Comment H [Automated message] 5793310603) The system [employer] generated this result transmitted ref erence range: 0 - 10 m m/HR. The reference r torito was not used to interpret this result as normal/abnor mal. Lab Interpretation (test Abnormal code = 77912-0) [facility] DallasPOPA GLUCOSE (AUTOMATED)2020-08-21 09:45:00 Test Item Value Reference Range Interpretation Comments POCT GLU (test code = 1216812717) 287 mg/dL 70-110 H Lab Interpretation (test code = Abnormal 21723-9) [facility] DallasGlycosylated Hemoglobin (A1C)2020-08-21 09:29:00 Test Item Value Reference Range Interpretation Comments HGB A1C (test code = 4548-4) 9.8 % 4-6 H Lab Interpretation (test code = Abnormal 60844-5) [facility] [place]COVID-19 (ID NOW RAPID TESTING)2020-08-21 09:13:00 Test Item Value Reference Range Interpretation Comments SARS-CoV-2 Rapid ID NOW Not Detected Not Detected (test code = 99405-0) JAMES (test code = JAMES) ID NOW COVID-19 Assay is an isothermal nucleic acid amplification test intended for the qualitative detection of nucleic acid from SARS-CoV-2 viral RNA in nasopharyngeal (JIRA ADMINISTRATOR) specimens. It is used under Emergency Use [...] indicated. Lab Interpretation Normal (test code = 18906-9) [facility] DallasProthrombin Time / [id number] 08:59:00 Test Item Value Reference Range Interpretation Comments PROTIME PATIENT (test See_Comment H [Auto mated message] code = 5964-2) The system [employer] generated this result transmitted ref erence range: 10.1 - 1 2.6 Seconds. The reference range was not used to int erpret this result as normal/abnormal . INR (test code = 6301-6) Nor mal INR <1.1; Warfarin Therap eutic range 2.0 to 3. 0 or 2.5 to 3.5, dep ending upon the indica tions. Lab Interpretation (test Abnormal code = 07367-5) [facility] DallasaPTT2020-11-09 08:59:00 Test Item Value Reference Range Interpretation Comments APTT Patient (test code = See_Comment [ Automated message] 3173-2) The system [employer] generated this result transmitted ref erence range: 26 - 36 Seconds. The re ference range was not u sed to interpret this result as normal/abnor mal. Lab Interpretation (test Normal code = 00648-9) [facility] DallasBASI METABOLIC PANEL (NA, K, CL, CO2, GLUCOSE, BUN, CREATININE, CA)2020-08-21 08:52:00 Test Item Value Reference Range Interpretation Comments NA (test code = 136 mmol/L 135-145 9586662596) K (test code = 4.3 mmol/L 3.5-5 1323438954) CL (test code = 104 mmol/L 98-108 0885438742) CO2 TOTAL (test code = 24 mmol/L 23-31 4472107312) AGAP (test code = 2-16 6950112850) BUN (test code = 8 mg/dL 7-23 5061257569) GLUCOSE (test code = 308 mg/dL 70-110 H 9319624280) CREATININE (test code = 0.72 mg/dL 0.6-1.25 6278562568) CALCIUM (test code = 7.8 mg/dL 8.6-10.6 L 3638837664) eGFR Calculation mL/min/1.73m2 (Non-) (test code = 6219072102) eGFR Calculation mL/min/1.73m2 () (test code = 8731044394) JAMES (test code = JAMES) Association of [...] tests). Lab Interpretation Abnormal (test code = 39986-0) [facility] DallasHEPATIC FUNCTION PANEL (45156) (ALB,T.PRO,BILI T,BU/BC,ALT,AST,ALK PHOS)2020-08-21 08:52:00 Test Item Value Reference Range Interpretation Comments TOTAL BILI (test code = 1219583449) 0.8 mg/dL 0.1-1.1 BILI UNCON (test code = 8413209712) 0.3 mg/dL 0.1-1.1 BILI CONJ (test code = 9895144060) 0.0 mg/dL 0-0.3 T PROTEIN (test code = 4682256545) 5.7 g/dL 6.3-8.2 L ALBUMIN (test code = 6440740140) 2.7 g/dL 3.5-5 L ALK PHOS (test code = 3782526705) 245 U/L 34-122 H ALTv (test code = 1742-6) 37 U/L 5-50 AST(SGOT) (test code = 4582097372) 43 U/L 13-40 H Lab Interpretation (test code = Abnormal 81802-9) [facility] [place]
--- NOTE | 2021-11-16 17:29 | EDPHYS ---
Physician Documentation [facility] Name: Kiel Ngo Age: 71 yrs Sex: Male : 1950 Arrival Date: 11/16/2021 Time: 16:57 Bed 14 Private MD: ED Physician Calvin Wright HPI: 11/16 17:19 This 71 yrs old Male presents to ER via EMS with complaints of right hip and right leg pm1 pain. 17:19 The patient presents with pain, that is chronic. Context: the patient is not able to pm1 ambulate. Onset: The symptoms/episode began/occurred present for many years. Worse the past year since his pain pump stopped working in October of last year. Patient refused replacement of the pump in September 2021. Patient's chronic pain is managed by Dr. Francois. Modifying factors: The symptoms are alleviated by Narcotic pain medication given in the ER . Associated signs and symptoms: The patient has no apparent associated signs or symptoms, Pertinent negatives calf tenderness, swelling. Severity of symptoms: in the emergency department the symptoms are actually worse. The patient has experienced similar episodes in the past, chronically. The patient has been recently seen at the [facility] Emergency Department, for similar complaints treated with narcotic pain medication. Historical: - Allergies: 17:05 Demerol; ic1 17:05 metformin; ic1 17:05 Morphine; ic1 - PMHx: 17:05 chronic back pain; neuropathy; ic1 - PSHx: 17:05 back sx; ic1 - Immunization history:: Adult Immunizations up to date. - Social history:: Smoking status: Patient denies any tobacco usage or history of. ROS: 17:19 Constitutional: Negative for fever, chills, and weight loss, Cardiovascular: Negative pm1 for chest pain, palpitations, and edema, Respiratory: Negative for shortness of breath, cough, wheezing, and pleuritic chest pain. 17:19 Skin: Negative for injury, rash, and discoloration, Neuro: Negative for headache, weakness, numbness, tingling, and seizure. 17:19 MS/extremity: Positive for of the right hip and right leg pain, Negative for decreased range of motion, deformity. 17:19 All other systems are negative. Exam: 17:19 Constitutional: This is a well developed, well nourished patient who is awake, alert, pm1 and in no acute distress. Head/Face: Normocephalic, atraumatic. 17:19 Skin: Warm, dry with normal turgor. Normal color with no rashes, no lesions, and no evidence of cellulitis. MS/ Extremity: Pulses equal, no cyanosis. Neurovascular intact. Full, normal range of motion. 17:19 Cardiovascular: Exam negative for acute changes, Rate: normal, Rhythm: regular, Pulses: no pulse deficits are appreciated. 17:19 Respiratory: Exam negative for acute changes, respiratory distress, shortness of breath. 17:19 Neuro: Exam negative for acute changes, Orientation: is normal, Mentation: is normal, Motor: moves all fours. Vital Signs: 17:01 BP 140 / 84; Pulse 108; Resp 18; Temp 98.0; Pulse Ox 98% on R/A; ic1 MDM: 17:19 Patient medically screened. pm1 17:19 ED course: Patient is presenting to the ER with the same chronic pain complaint from pm1 this morning that was treated with narcotic IM. Patient reports that the pain medication effectiveness ran out 1 hour ago. He reports that Dr. Pimentel, his pain management MD will not treat him unless he has an office visit. Patient reports difficulty with getting to the office. Patient is presenting to the ER with complaints of chronic pain and discussed his presentation with my attending MD. I will not be able to treat his chronic pain in the ER with narcotics. The patient needs to follow up with his PCP and pain management MD for chronic pain management. 17:29 Data reviewed: vital signs. Data interpreted: Pulse oximetry: on room air is 98 %. pm1 Interpretation: normal. 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 Administered Medications: 17:29 CANCELLED (Physician Discretion): Ketorolac 60 mg IM once pm1 17:55 Drug: Lidoderm Patch 5 % (700 mg/patch) 1 patches Route: Topical; Site: right thigh; robbins 17:55 Drug: Ketorolac 30 mg Route: IM; Site: right deltoid; robbins 17:55 Follow up: Response: No adverse reaction robbins Disposition: 19:24 Co-signature as Attending Physician, Calvin Wright MD I agree with the assessment and kdr plan of care. Disposition Summary: 11/16/21 17:28 Discharge Ordered Location: Home pm1 Problem: chronic pm1 Symptoms: are unchanged pm1 Condition: Stable pm1 Diagnosis - Chronic pain syndrome pm1 Followup: pm1 - With: Emergency Department - When: As needed - Reason: Worsening of condition Followup: pm1 - With: Madhu Francois DO - When: 2 - 3 days - Reason: Recheck today's complaints, Continuance of care, Re-evaluation by your physician Followup: pm1 - With: Isai Snow MD - When: 2 - 3 days - Reason: Recheck today's complaints, Continuance of care, Re-evaluation by your physician Forms: - Medication Reconciliation Form pm1 - Thank You Letter pm1 - Antibiotic Education pm1 - Prescription Opioid Use pm1 Signatures: Calvin Wright MD MD kdr Marinas, Patrick, NP MASTER DATA ANALYST pm1 Au-Charisma Collins RN RN robbins Deisy Navarro RN RN ic1 Corrections: (The following items were deleted from the chart) 17:29 17:29 Ketorolac 60 mg IM once ordered. pm1 pm1 17:30 17:19 ED course: Patient is presenting to the ER with the same chronic pain complaint pm1 from this morning that was treated with narcotic IM. Patient reports that the pain medication effectiveness ran out 1 hour ago. He reports that Dr. Pimentel, his pain management MD will not treat him unless he has an office visit. Patient reports difficulty with getting to the office. Patient is presenting to the ER with complaints of chronic pain and discussed his presentation with my attending MD. I will not be able to treat his chronic pain in the ER. The patient needs to follow up with his PCP and pain management MD for chronic pain management. pm1
--- NOTE | 2021-11-16 17:29 | ER ---
Nurse's Notes [facility] Name: Kiel Ngo Age: 71 yrs Sex: Male : 1950 Arrival Date: 11/16/2021 Time: 16:57 Bed 14 Private MD: Diagnosis: Chronic pain syndrome Presentation: 11/16 17:01 Chief complaint: EMS states: Pt is returning to ER for R leg pain. Was seen this AM, ic1 provided with pain meds and discharged. Pt denies any changes since discharge. Coronavirus screen: Vaccine status: Patient reports receiving the 2nd dose of the covid vaccine. Ebola Screen: No symptoms or risks identified at this time. Initial Sepsis Screen: Does the patient meet any 2 criteria? No. Patient's initial sepsis screen is negative. Does the patient have a suspected source of infection? No. Patient's initial sepsis screen is negative. Risk Assessment: Do you want to hurt yourself or someone else? Patient reports no desire to harm self or others. Onset of symptoms is unknown. 17:01 Method Of Arrival: EMS: [facility] ic1 17:01 Acuity: JOZEF 4 ic1 Triage Assessment: 17:05 General: Appears in no apparent distress. comfortable, Behavior is calm, cooperative. ic1 Pain: Complains of pain in right leg. Historical: - Allergies: 17:05 Demerol; ic1 17:05 metformin; ic1 17:05 Morphine; ic1 - PMHx: 17:05 chronic back pain; neuropathy; ic1 - PSHx: 17:05 back sx; ic1 - Immunization history:: Adult Immunizations up to date. - Social history:: Smoking status: Patient denies any tobacco usage or history of. Screenin:08 Abuse screen: Denies threats or abuse. Denies injuries from another. Nutritional ic1 screening: No deficits noted. Tuberculosis screening: No symptoms or risk factors identified. Fall Risk None identified. Assessment: 17:08 Reassessment: See triage. ic1 17:48 Reassessment: APS , Kaya Veras. ic1 Vital Signs: 17:01 BP 140 / 84; Pulse 108; Resp 18; Temp 98.0; Pulse Ox 98% on R/A; ic1 ED Course: 16:57 Patient arrived in ED. iw 17:05 Triage completed. ic1 17:05 Arm band placed on left wrist. ic1 17:08 Patient has correct armband on for positive identification. Bed in low position. Call ic1 light in reach. Side rails up X2. 17:09 Tay Olsen NP is PHCP. pm1 17:09 Calvin Wright MD is Attending Physician. pm1 17:27 Madhu Francois DO is Referral Physician. pm1 17:28 Isai Snow MD is Referral Physician. pm1 18:52 No provider procedures requiring assistance completed. Patient did not have IV access robbins during this emergency room visit. Administered Medications: 17:29 CANCELLED (Physician Discretion): Ketorolac 60 mg IM once pm1 17:55 Drug: Lidoderm Patch 5 % (700 mg/patch) 1 patches Route: Topical; Site: right thigh; robbins 17:55 Drug: Ketorolac 30 mg Route: IM; Site: right deltoid; robbins 17:55 Follow up: Response: No adverse reaction robbins Outcome: 17:28 Discharge ordered by . pm1 18:52 Discharged to home via ambulance. robbins 18:52 Condition: good 18:52 Discharge instructions given to patient. 18:54 Patient left the ED. robbins Signatures: Juanita Mcguire RN RN Tay Olsen NP PERSONNEL ASSOCIATE pm1 Charisma Trimble RN RN ha Creggett, Iesha, RN RN ic1
[2021-11-16] MEDS ORDERED: KETOROLAC 30 MG/ML INJ ONE (17:53)
[2021-11-16] MEDS ORDERED: LIDOCAINE 4% PATCH ONE (17:53)
[2021-11-16 19:02] VITALS: BP 140/84; TEMP 98; O2SAT 98
== END 2021-11-16 18:54 | disposition home or self-care (01) ==
LOC: ER 16:53
DX: G89.4 Chronic pain syndrome (principal); Z88.5 Allergy status to narcotic agent; Z88.8 Allergy status to other drugs, medicaments and biological substances
CPT/HCPCS: 96372; 99283

== ENCOUNTER 2021-11-21 00:17 | Emergency (ER) | payer OTHER ==
--- OUTSIDE RECORDS SUMMARY | 2021-11-21 00:26 | XMS REPORT | Continuity of Care Document ---
:1950 Author Organization [facility] t Address [address] [place] [address] Dr. Motley [address] [place] [id number] Care Team Providers Name Role Phone Edy England Primary Care Physician CECILIO WASHINGTON Attending Clinician Unavailable GIRISH Attending Clinician Unavailable Girish VILLAREAL Attending Clinician ZAKI Attending Clinician Unavailable Yolis IVLLAREAL, Hawa Attending Clinician Lorraine CORTEZ Attending Clinician [...] Expiration Date S ource MEDICARE PART A [id number] 2007 \\T\\ B 00:00:00 [employer] INDEMNITY [id number] 2016 00:00:00 MEDICARE PART A [id number] 2014 \\T\\ B - MEDICARE 00:00:00 INDEMNITY/TRADITIO [id number] NAL CHOICE - [employer] 00:00:00 Problems Condition [...] ents Source Name Type Date Date Clinician Guthrie Propensi Active Rash 2020- Univers ty to [...] vers NE INGREDI 3-16 ity of 00:00: [place] 00 [facility] Branch GLIMEPIR DRUG Active Hives Univers EFREN INGREDI 3-16 ity of 00:00: [place] 00 Medical Branch METFORMI DRUG Active ITCHING Univers N INGREDI 3-16 ity of 00:00: [place] 00 Medical Branch Social History Social Habit Start Date Stop Date Quantity Comments Source Exposure to Not sure University of SARS-CoV-2 [facility] (event) Branch History of Chews Tobacco University of tobacco use [facility] History ILOH 2020-11-17 2020-11-17 5 University o f Financial 00:00:00 00:00:00 [facility] History [facility] Food 2020-11-17 2020-11-17 1 Univers ity of Worry 00:00:00 00:00:00 [facility] History [facility] Food 2020-11-17 2020-11-17 1 Univers ity of Scarcity 00:00:00 00:00:00 [facility] History [facility] 2020-11-17 2020-11-17 1 University o f Transport Med 00:00:00 00:00:00 [place] Medic al Branch History [facility] 2020-11-17 2020-11-17 1 University o f Transport Non-Med 00:00:00 00:00:00 [facility] edical Branch Education 2020-11-16 2020-11-16 21 [place] of 00:00:00 00:00:00 [facility] Alcohol intake 2020-11-16 2020-11-16 Ex-drinker [place] of 00:00:00 00:00:00 (finding) [facility] Tobacco use and 2020-08-21 2020-08-21 Former user Universi ty of exposure 00:00:00 00:00:00 [facility] Tobacco Comment 2020-08-21 2020-08-21 quit 10 years Univer sity of 00:00:00 00:00:00 ago, started in [place] Med ical 2nd year of Branch college (~40 years) Alcohol Comment 2020-08-21 2020-08-21 Used to have 2-3 Uni versity of 00:00:00 00:00:00 six-packs of [place] Medica l beer daily x 20 Branch years, quit 2005 History [facility] 2020-08-21 2020-08-21 99 University o f Alcohol Frequency 00:00:00 00:00:00 [place] M edical Branch History SDKS 2020-08-21 2020-08-21 99 [place] o f Alcohol Std 00:00:00 00:00:00 [place] Medical Drinks Branch History SDKS 2020-08-21 2020-08-21 99 University o f Alcohol Binge 00:00:00 00:00:00 [place] Medic al Branch Sex [birth year] Universit y of 00:00:00 00:00:00 [facility] Smoking Status Start Date Stop Date Source Never smoker [facility] Medications Ordered Filled Start Stop [...] 0845, Until Discontinu ed, Routine amLODIPine Yes [id number] 10mg Take 1 Univers 10 mg 3-07 tablet by ity of tablet 00:00: mouth [place] 00 daily. Medical Branch clotrimazol Yes [id number] Apply to Univers e 1 % 3-07 face/ears, ity of topical 00:00: armpits, [place] cream 00 pannus and Medical back/any Branch other rash twice a day fluocinonid 0 Yes [id number] Apply to Univers e 0.05 % 3-07 scalp ity of solution 00:00: twice a [place] 00 day Medical Branch triamcinolo 0 Yes [id number] Apply to Univers ne 3-07 back, ity of acetonide 00:00: armpits [place] 0.1 % cream 00 and other Med ical affected Branch areas twice daily, please mix with clotrimazo le hydrOXYzine 0 Yes [id number] 10mg Take 1 Univers 10 mg 3-07 tablet by ity of tablet 00:00: mouth 2 (two) Medical times Branch daily. amLODIPine 2020-0 Yes [id number] 10mg Take 1 Univers 10 mg 3-07 tablet by ity of tablet 00:00: mouth 00 daily. Medical Branch clotrimazol 2020-0 Yes [id number] Apply to Univers e 1 % 3-07 face/ears, ity of topical 00:00: armpits, [place] cream 00 pannus and Medical back/any Branch other rash twice a day fluocinonid 0 Yes [id number] Apply to Univers e 0.05 % 3-07 scalp ity of solution 00:00: twice a day Medical Branch triamcinolo 0 Yes [id number] Apply to Univers ne 3-07 back, ity of acetonide 00:00: armpits [place] 0.1 % cream 00 and other Med ical affected Branch areas twice daily, please mix with clotrimazo le hydrOXYzine 0 Yes [id number] 10mg Take 1 Univers 10 mg 3-07 tablet by ity of tablet 00:00: mouth 2 (two) Medical times Branch daily. amLODIPine Yes [id number] 10mg Take 1 Univers 10 mg 3-07 tablet by ity of tablet 00:00: mouth 00 daily. Medical Branch clotrimazol 0 Yes [id number] Apply to Univers e 1 % 3-07 face/ears, ity of topical 00:00: armpits, [place] cream 00 pannus and Medical back/any Branch other rash twice a day fluocinonid 2020-0 Yes [id number] Apply to Univers e 0.05 % 3-07 scalp ity of solution 00:00: twice a [place] 00 day Medical Branch triamcinolo 2020-0 Yes [id number] Apply to Univers ne 3-07 back, ity of acetonide 00:00: armpits [place] 0.1 % cream 00 and other Med ical affected Branch areas twice daily, please mix with clotrimazo le hydrOXYzine Yes [id number] 10mg Take 1 Univers 10 mg 3-07 tablet by ity of tablet 00:00: mouth 2 [place] 00 (two) Medical times Branch daily. amLODIPine Yes [id number] 10mg Take 1 Univers 10 mg 3-07 tablet by ity of tablet 00:00: mouth [place] 00 daily. Medical Branch clotrimazol Yes [id number] Apply to Univers e 1 % 3-07 face/ears, ity of topical 00:00: armpits, [place] cream 00 pannus and Medical back/any Branch other rash twice a day fluocinonid Yes [id number] Apply to Univers e 0.05 % 307 scalp ity of solution 00:00: twice a [place] 00 day Medical Branch triamcinolo Yes [id number] Apply to Univers ne 3-07 back, ity of acetonide 00:00: armpits [place] 0.1 % cream 00 and other Med ical affected Branch areas twice daily, please mix with clotrimazo le hydrOXYzine Yes [id number] 10mg Take 1 Univers 10 mg 3-07 tablet by ity of tablet 00:00: mouth 2 [place] 00 (two) Medical times Branch daily. cephALEXin 2020-2020- No [id number] 500mg Take 1 Univers 500 mg 3-04 14-11 capsule by ity of capsule 00:00: 05:59 mouth [place] 00 :00 every 6 Medical (six) Branch hours for 3 days. cephALEXin 2020-0 2020- No [id number] 500mg Take 1 Univers 500 mg 3-04 14-11 capsule by ity of capsule 00:00: 05:59 mouth [place] 00 :00 every 6 Medical (six) Branch hours for 3 days. hydrOXYzine 2020-2020- No [id number] 10mg Take 1 Univers 10 mg 3- 03-07 tablet by ity of tablet 00:00: 00:00 mouth 2 [place] 00 :00 (two) Medical times Branch daily. morpHINE Yes 4mg 4 mg, Slow Uni vers injection 4 - IV Push, ity of mg 22:40: Q6HPRN, [place] 02 Starting Medical 12/16/20 Branch at 1640, [...] IV [place] 500 mL 00 :00 Piggyback, [facility] ONCE, 1 Branch dose, Fri12/15/20 at 1000, STAT HYDROmorpho Yes 4mg 4 mg, Unive ne 12-15 Oral, BID, ity of (DILAUDID) 15:30: First dose [place] tablet 4 mg 00 (after Medica l last Branch modificati on) on Fri12/15/20 at 0930, Until Discontinu ed, Routine amLODIPine 2020- No [id number] 10mg Take 1 Univers 10 mg 12-15 tablet by ity of tablet 00:00: 00:00 mouth [place] 00 :00 daily. Medical Branch HYDROmorpho No 1mg 1 mg, Univ ers ne 12-14 Oral, ity of (DILAUDID) 17:35: 15:18 Q6HPRN, [place] tablet 1 mg 30 :06 Starting Medi [facility] 12/14/20 Branch at 1135, Until Fri12/15/20 at 0918, Routine, Pain (scale 7-10) hydrOXYzine Yes 10mg 10 mg, [facility] [place] [facility] ers (ATARAX) 12-14 Oral, BID, ity o f tablet 10 17:30: First dose [place] mg 00 on [facility] 12/14/20 at Branch 1130, Until Discontinu ed, Routine lisinopriL Yes 5mg 5 mg, Univer s (PRINIVIL,Z 12-14 Oral, ity of ESTRIL) 17:30: DAILY, [place] tablet 5 mg 00 First dose Me dical on [facility] 12/14/20 at 1130, Until Discontinu ed, Routine triamcinolo 2020- No [id number] Apply to [facility] 12-14 back, ity of acetonide 00:00: 00:00 armpits [place] 0.1 % cream 00 :00 and other Med ical affected Branch areas twice daily, please mix with clotrimazo le clotrimazol 2020- No [id number] Apply to Univers e 1 % 12-14 face/ears, ity of topical 00:00: 00:00 armpits, [place] cream 00 :00 pannus and Medical back/any Branch other rash twice a day fluocinonid 2020- No [id number] Apply to Univers e 0.05 % 12-14 scalp ity of solution 00:00: 00:00 twice a [place] 00 :00 day Medical Branch hydrOXYzine 2020- No [id number] 10mg Take 1 Univers 10 mg 12-14 [...] IV Push, ity of (PF)) 10:07: Q6HPRN, [place] injection 4 28 Starting Medi jose c mg 12/13/20 Branch at 0407, Until Discontinu ed, Routine, Nausea and Vomiting (N/V) ondansetron 2020- No 4mg 4 mg, Slow Univers (ZOFRAN 12-13-03 IV Push, ity of (PF)) 04:55: 05:44 ONCE, 1 [place] injection 4 00 :00 dose, [facility] ical mg 12/12/20 at Branch 2300, Routine traMADoL 2020- No 50mg 50 mg, Univer s (ULTRAM) 3 03-03 Oral, ity of tablet 50 03:45: 03:34 ONCE, 1 [place] mg 00 :00 dose, [facility] 12/12/20 at Branch 2145, Routine insulin Yes 15U 15 Units, Univ rs glargine 12-12 Subcutaneo ity o f (LANTUS 15:00: us, DAILY, [place] U-100) 00 First dose Medical injection on [facility] 15 Units 12/12/20 at 0900, Until Discontinu ed hydrOXYzine 2020- No 10mg 10 mg, Uni vers (ATARAX) 12-12 03-02 Oral, ity of tablet 10 08:15: 07:33 ONCE, 1 [place] mg 00 :00 dose, [facility] 12/12/20 at Branch 0215, Routine mirtazapine Yes 7.5mg 7.5 mg, Un toi (REMERON) 3-02 Oral, QHS, ity of tablet 7.5 03:00: First dose [place] mg 00 on [facility] 12/11/20 at Branch 2100, Until Discontinu ed, Routine venlafaxine Yes 300mg 300 mg, Un toi XR (EFFEXOR 3-02 Oral, QHS, it y of XR) 24 hr 03:00: First dose [place] capsule 300 00 on [facility] Medica l mg 12/11/20 at Branch 2100, Until Discontinu ed, Routine fluocinonid Yes Topical, Un toi e (LIDEX) 3 BID, First ity of 0.05 % 02:00: dose on [place] solution 00 Fri12/11/20 Medic al at 2000, Branch Until Discontinu ed, Routine acetaminoph 2020- No 1{tbl} 1 tablet, Univers en-codeine 12-11 03-05 Oral, ity of (TYLENOL 23:23: 13:49 Q6HPRN, [place] #3) 300-30 43 :08 Starting Medic al mg tablet 1 Fri12/11/20 Br anch tablet at 1723, Until Fri12/15/20 at 0749, Routine, Pain (scale 4-6) enoxaparin Yes 40mg 40 mg, Unive rs (LOVENOX) 12-11 Subcutaneo ity of injection 23:00: us, DAILY, [place] 40 mg 00 First dose Medical on Fri [place] 12/11/20 at 1700, Until Discontinu ed, Routine [...] ed, Routine insulin Yes 5U 5 Units, [facility] s lispro 12-11 Subcutaneo ity of (human) 18:00: us, TID [place] (HumaLOG 00 MEALS, Medical U-100) First dose Branch injection 5 on [facility] Units 12/11/20 at 1200, Until Discontinu ed Polyethylen Yes 17g 17 g, [facility] [place] [facility] rs e Glycol 12-11 Oral, ity of 3350 17:47: [id number], [place] (MIRALAX) 05 Starting Medica l powder 17 g 12/11/20 Br anch at 1147, Until Discontinu ed, Routine, Constipati on acetaminoph Yes 650mg 650 mg, Un toi en 12-11 Oral, ity of (TYLENOL) 16:51: Q6HPRN, [place] tablet 650 28 Starting Medic al mg [...]
Duration of therapy: 72 hours sennosides- Yes [id number] 1{tbl} Take 1 [facility] docusate 2-09 tablet by ity of sodium 00:00: mouth 2 [place] 8.6-50 mg 00 (two) Medical per tablet times Branch daily. hydrocortis Yes [id number] Apply to [facility] one 2.5 % 11-21 affected ity of cream 00:00: area(s) 2 [place] 00 (two) Medical times Branch daily. blood sugar Yes [id number] Use to [facility] diagnostic 2 check ity of (FREESTYLE 00:00: blood [place] LITE 00 glucose Medical STRIPS) 4-5 times Branch strip daily. Polyethylen Yes [id number] 17g Take 1 Univers e Glycol 2-09 Packet by ity of 3350 17 00:00: mouth [place] gram powder 00 every 24 Medi jose c (twenty-fo Branch ur) hours as needed for Constipati on. sennosides- Yes [id number] 1{tbl} Take 1 Univers docusate 2-09 tablet by ity of sodium 00:00: mouth 2 [place] 8.6-50 mg 00 (two) Medical per tablet times Branch daily. hydrocortis 2020-0 Yes [id number] Apply to Univers one 2.5 % 2-09 affected ity of cream 00:00: area(s) 2 [place] 00 (two) Medical times Branch daily. blood sugar 2020-0 Yes [id number] Use to Univers diagnostic 11-21 check ity of (FREESTYLE 00:00: blood [place] LITE 00 glucose Medical STRIPS) 4-5 times Branch strip daily. Polyethylen 2020-0 Yes [id number] 17g Take 1 Univers e Glycol 2-09 Packet by ity of 3350 17 00:00: mouth [place] gram powder 00 every 24 Medi jose c (twenty-fo Branch ur) hours as needed for Constipati on. sennosides- 2020-0 Yes [id number] 1{tbl} Take 1 Univers docusate 2-09 tablet by ity of sodium 00:00: mouth 2 [place] 8.6-50 mg 00 (two) Medical per tablet times Branch daily. hydrocortis 2020-0 Yes [id number] Apply to Univers one 2.5 % 2-09 affected ity of cream 00:00: area(s) 2 [place] 00 (two) Medical times Branch daily. blood sugar 2020-0 Yes [id number] Use to [facility] diagnostic 11-21 check ity of (FREESTYLE 00:00: blood [place] LITE 00 glucose Medical STRIPS) 4-5 times Branch strip daily. Polyethylen 2020-0 Yes [id number] 17g Take 1 Univers e Glycol 2-09 Packet by ity of 3350 17 00:00: mouth [place] gram powder 00 every 24 Medi jose c (twenty-fo Branch ur) hours as needed for Constipati on. sennosides- 2020-0 Yes [id number] 1{tbl} Take 1 Univers docusate 2-09 tablet by ity of sodium 00:00: mouth 2 [place] 8.6-50 mg 00 (two) Medical per tablet times Branch daily. hydrocortis 2020-0 Yes [id number] Apply to Univers one 2.5 % 2-09 affected ity of cream 00:00: area(s) 2 [place] 00 (two) Medical times Branch daily. blood sugar Yes [id number] Use to [facility] diagnostic 11-21 check ity of (FREESTYLE 00:00: blood [place] LITE 00 glucose Medical STRIPS) 4-5 times Branch strip daily. Polyethylen Yes [id number] 17g Take 1 Univers e Glycol 11-21 Packet by ity of 3350 17 00:00: mouth [place] gram powder 00 every 24 Medi jose c (twenty-fo Branch ur) hours as needed for Constipati on. Insulin 2020- No [id number] 15U inject 15 Univers Glargine 11-21 Units ity of (LANTUS 00:00: 05:59 under the [place] SOLOSTAR 00 :00 skin every Medic al U-100 morning Branch INSULIN) for 30 100 unit/mL days. (3 mL) injection venlafaxine 2020- No [id number] 150mg Take 1 Univers XR 150 mg 11-21 capsule by ity of 24 hr 00:00: 05:59 mouth 3 [place] capsule 00 :00 (three) Medical times Branch daily for 30 days. Insulin 2020- No [id number] 15U inject 15 Univers Glargine 11-2112 Units ity of (LANTUS 00:00: 05:59 under the [employer] SOLOSTAR 00 :00 skin every Medic al U-100 morning Branch INSULIN) for 30 100 unit/mL days. (3 mL) injection venlafaxine 2020- No [id number] 150mg Take 1 Univers XR 150 mg 11-21 capsule by ity of 24 hr 00:00: 05:59 mouth 3 [place] capsule 00 :00 (three) Medical times Branch daily for 30 days. triamcinolo 2020- No [id number] Apply to [facility] ne 11-21 area(s) 2 ity of acetonide 00:00: 00:00 (two) [place] 0.1 % cream 00 :00 times Medical daily. Branch cephALEXin 2020- No [id number] 1000mg Take 2 Univers 500 mg 11-21 capsules ity of capsule 00:00: 00:00 by mouth 3 [place] as 00 :00 (three) Medical times Branch daily. doxycycline 2020- No [id number] 100mg Take 1 Univers hyclate 100 11-21 capsule by i ty of mg capsule 00:00: 00:00 mouth [place] 00 :00 every 12 Medical (twelve) Branch hours. lactobacill 2020- No [id number] 1{tbl} Take 1 Univers us 11-21 tablet by ity of acidophilus 00:00: 00:00 mouth 2 [place] 25 million 00 :00 (two) Medical cell -100 times Branch mg captab daily. bisacodyL 2020- No [id number] 10mg Insert 1 Univers 10 mg 11-21 Suppositor ity of suppository 00:00: 00:00 y into [place] 00 :00 rectum at Medical bedtime as Branch needed for Constipati on. ALPRAZolam 2020- No [id number] .25mg Take 1 Univers (XANAX) 11-21 tablet by ity of 0.25 mg 00:00: 00:00 mouth 2 [place] tablet 00 :00 (two) Medical times Branch daily. hydrOXYzine 2020- No [id number] 20mg Take 2 Univers 10 mg 11-21 [...] Units ity of (LANTUS 01:13: under the [place] SOLOSTAR) 36 skin. Medical 100 unit/mL Branch [...] Units ity of (LANTUS 01:13: [facility] the [place] [facility] skin. Medical 100 unit/mL Branch (3 mL) InPn INSULIN 2019-10 Yes 5U inject 5 Univer s ASPART 1-12 Units ity of (NOVOLOG 01:13: under the [facility] s FLEXPEN SC) 36 skin. Medical Branch [...] Units ity of (LANTUS 01:13: under the [place] SOLOSTTX) 36 skin. Medical 100 unit/mL Branch (3 mL) In INSULIN 2019- Yes 5U inject 5 Univer s ASPART 1-12 Units ity of (NOVOLOG 01:13: [facility] FLEXPEN [facility]) 36 skin. Medical [...] Units ity of (LANTUS 01:13: under the [place] [facility] 36 skin. Medical 100 unit/mL Branch (3 mL) In INSULIN 2019-10 Yes 5U inject 5 Univer s ASPART 1-12 Units ity of (NOVOLOG 01:13: under the [facility] s FLEXPEN SC) 36 skin. Medical Branch [...] Units ity of (LANTUS 01:13: under the [place] SOLOSTAR) 36 skin. Medical 100 unit/mL Branch (3 mL) InPn INSULIN 2019-10 Yes 5U inject 5 Univer s ASPART 1-12 Units ity of (NOVOLOG 01:13: under the [facility] s FLEXPEN SC) 36 skin. Medical Branch [...] Units ity of (LANTUS 01:13: under the [place] SOLOSTAR) 36 skin. Medical 100 unit/mL Branch [...] 34 :00 Medical Branch hydrocortis 2019- Yes [id number] Apply to Univers one 2.5 % 1-11 affected ity of cream 00:00: area(s) 2 [place] (two) Medical times Branch daily. hydrOXYzine 2019-10 Yes [id number] 20mg Take 2 Univers 10 mg 1-11 tablets by ity of tablet 00:00: mouth [place] 00 every 8 Medical (eight) Branch hours as needed for Itching or Anxiety. Polyethylen 2019-10 Yes [id number] 17g Take 1 Univers e Glycol 1-11 Packet by ity of 3350 17 00:00: mouth [place] gram powder 00 every 24 Medi jose c (twenty-fo Branch ur) hours as needed for Constipati on. hydrocortis 2019-10 Yes [id number] Apply to Univers one 2.5 % 1-11 affected ity of cream 00:00: area(s) 2 [place] 00 (two) Medical times Branch daily. hydrOXYzine 2019- Yes [id number] 20mg Take 2 Univers 10 mg 1-11 tablets by ity of tablet 00:00: mouth [place] 00 every 8 Medical (eight) Branch hours as needed for Itching or Anxiety. Polyethylen 2019- Yes [id number] 17g Take 1 Univers e Glycol 1-11 Packet by ity of 3350 17 00:00: mouth [place] gram powder 00 every 24 Medi jose c (twenty-fo Branch ur) hours as needed for Constipati on. hydrocortis 2019- Yes [id number] Apply to Univers one 2.5 % 1-11 affected ity of cream 00:00: area(s) 2 [place] 00 (two) Medical times Branch daily. hydrOXYzine 2019- Yes [id number] 20mg Take 2 Univers 10 mg 1-11 tablets by ity of tablet 00:00: mouth [place] 00 every 8 Medical (eight) Branch hours as needed for Itching or Anxiety. Polyethylen 2020- Yes [id number] 17g Take 1 Univers e Glycol 1-11 Packet by ity of 3350 17 00:00: mouth [place] gram powder 00 every 24 Medi jose c (twenty-fo Branch ur) hours as needed for Constipati on. hydrocortis 2019- Yes [id number] Apply to Univers one 2.5 % 1-11 affected ity of cream 00:00: area(s) 2 [place] 00 (two) Medical times Branch daily. hydrOXYzine 2019- Yes [id number] 20mg Take 2 Univers 10 mg 1-11 tablets by ity of tablet 00:00: mouth [place] 00 every 8 Medical (eight) Branch hours as needed for Itching or Anxiety. Polyethylen 2019- Yes [id number] 17g Take 1 Univers e Glycol 1-11 Packet by ity of 3350 17 00:00: mouth [place] gram powder 00 every 24 Medi jose c (twenty-fo Branch ur) hours as needed for Constipati on. hydrocortis 2019-10 Yes [id number] Apply to Univers one 2.5 % 1-11 affected ity of cream 00:00: area(s) 2 [place] 00 (two) Medical times Branch daily. hydrOXYzine 2019- Yes [id number] 20mg Take 2 Univers 10 mg 1-11 tablets by ity of tablet 00:00: mouth [place] 00 every 8 Medical (eight) Branch hours as needed for Itching or Anxiety. Polyethylen 2019- Yes [id number] 17g Take 1 Univers e Glycol 1-11 Packet by ity of 3350 17 00:00: mouth [place] gram powder 00 every 24 Medi jose c (twenty-fo Branch ur) hours as needed for Constipati on. hydrocortis 2019- Yes [id number] Apply to Univers one 2.5 % 1-11 affected ity of cream 00:00: area(s) 2 [place] 00 (two) Medical times Branch daily. hydrOXYzine 2019- Yes [id number] 20mg Take 2 Univers 10 mg 1-11 tablets by ity of tablet 00:00: mouth [place] 00 every 8 Medical (eight) Branch hours as needed for Itching or Anxiety. Polyethylen 2019- Yes [id number] 17g Take 1 Univers e Glycol 1-11 Packet by ity of 3350 17 00:00: mouth [place] gram powder 00 every 24 Medi jose c (twenty-fo Branch ur) hours as needed for Constipati on. hydrocortis 2019-10 Yes [id number] Apply to Univers one 2.5 % 1-11 affected ity of cream 00:00: area(s) 2 [place] 00 (two) Medical times Branch daily. hydrOXYzine 2019-10 Yes [id number] 20mg Take 2 Univers 10 mg 1-11 tablets by ity of tablet 00:00: mouth [place] 00 every 8 Medical (eight) Branch hours as needed for Itching or Anxiety. Polyethylen 2019-10 Yes [id number] 17g Take 1 Univers e Glycol 1-11 Packet by ity of 3350 17 00:00: mouth [place] gram powder 00 every 24 Medi jose c (twenty-fo Branch ur) hours as needed for Constipati on. triamcinolo 2019-10 2020- No [id number] Apply to [facility] 10-23 area(s) 2 ity of acetonide 00:00: 05:59 (two) [place] 0.1 % cream 00 :00 times Medical daily for Branch 14 days. triamcinolo 2019-10 2020- No [id number] Apply to [facility] 10-23 area(s) 2 ity of acetonide 00:00: 05:59 (two) [place] 0.1 % cream 00 :00 times Medical daily for Branch 14 days. triamcinolo 2019-10 2020- No [id number] Apply to [facility] 10-23 area(s) 2 ity of acetonide 00:00: 05:59 (two) [place] 0.1 % cream 00 :00 times Medical daily for Branch 14 days. KCL 2019-10 2020- No 40meq 40 mEq, Univers (KLOR-CON 10-22- Oral, ONCE ity of M20) tablet 16:15: 16:23 NOW, 1 [place] 40 mEq 00 :00 dose, [facility] Medical 08/22/20 Branch at 1015, [...] To ity o f cream 02:00: Affected [place] 00 Areas), Medical BID, First Branch dose on [facility] 08/21/20 at 2000, Until Discontinu ed, Routine triamcinolo 2019- Yes Topical, Un toi ne 1-10 BID, First ity of acetonide 02:00: dose on [place] (TRIDERM) 00 [facility] Medical 0.1 % cream 08/21/20 at Br anch 2000, Until Discontinu ed, Routine hydrOXYzine 2019-10 Yes 20mg 20 mg, Univ ers (ATARAX) 09 Oral, ity of tablet 20 17:39: Q8HPRN, [place] mg 12 Starting Medical [facility] Branch 08/21/20 at 1139, Until Discontinu ed, Routine, Itching, Anxiety sennosides- 2019-10 Yes 1{tbl} 1 tablet, Univers docusate 10-21 Oral, ity of sodium 15:00: DAILY, [place] (SENOKOT-S) 00 First dose Me dical 8.6-50 mg on [facility] Branch per tablet 08/21/20 at 1 tablet 0900, Until Discontinu ed, Routine hydrocortis 2019-10 2020- No Topical Un toi one 1 % 10-21- (Apply To ity of cream 15:00: 22:54 Affected [place] 00 :48 Areas), Medical DAILY, Branch First dose on [facility] 08/21/20 at 0900, Until Discontinu ed, Routine venlafaxine 2019-10 Yes 150mg 150 mg, Un toi XR (EFFEXOR 09 Oral, TID, it y of XR) 24 hr 14:00: First dose [place] capsule 150 00 on [facility] Medica l mg 08/21/20 at Branch 0800, Until Discontinu ed, Routine heparin 2019-10 Yes 5000U 5,000 Univers (porcine) -09 Units, ity of injection 14:00: Subcutaneo [place] 5,000 Units 00 us, Q12H, Med ical First dose Branch on [facility] 08/21/20 at 0800, Until Discontinu ed, Routine diphenhydrA 2019-10 2020- No 25mg 25 mg, Uni vers MINE 10-21 Oral, ity of (BENADRYL) 12:56: 17:39 Q8HPRN, [place] tablet 25 59 :43 Starting Medica l mg [facility] [facility] 08/21/20 at 0656, Until [facility] 08/21/20 at 1139, Routine, Itching, Mild Rash, Congestion /Allergies , alternate with hydroxyzin e hydrOXYzine 2019-10- No 10mg 10 mg, Uni vers (ATARAX) 10-21 Oral, ity of tablet 10 10:20: 12:57 Q6HPRN, [place] mg 22 :12 Starting [facility] 08/21/20 at 0420, Until [facility] 08/21/20 at 0657, Routine, Itching, Anxiety Sliding 2019-10 Yes Subcutaneo [facility] ers Scale 09 us, Q4H, ity of Insulin - 10:00: [place] dose [place] Aspart 00 (after Medical (NOVOLOG) + last Branch Fsbg modificati Testing on) on [facility] 08/21/20 at 0400, Until Discontinu ed, Routine lidocaine 5 2019-10 2020- No Topical, U nivers % ointment 10-21 ONCE, 1 ity o f 09:30: 09:14 dose, [facility] 00 :00 08/21/20 at [facility] 0330, Branch Routine Polyethylen 2019-10 Yes 17g 17 g, [facility] [place] [facility] rs e Glycol 10-21 Oral, ity of 3350 08:29: [id number], [place] (MIRALAX) Starting Medica l powder 17 g [facility] 08/21/20 at 0229, Until Discontinu ed, Routine, Constipati on lanolin 2019-10 Yes Topical, [facility] [place] [facility] alcohol-mo- 10-21 PRN, ity of w.pet-ceres 08:26: [place] (EUCERIN) 30 [facility] cream 08/21/20 at Branch 0226, Until Discontinu ed, Routine, Dermatitis /Rash ALPRAZolam 2019-10 Yes .25mg 0.25 mg, Un toi (XANAX) 10-21 Oral, ity of tablet 0.25 08:25: BIDPRN, [place] as mg 41 Starting [facility] 08/21/20 at 0225, Until Discontinu ed, Routine, [...] hours. Branch blood sugar Yes Use to [employer] ers diagnostic 4-25 check ity of (FREESTYLE 00:00: blood [place] LITE 00 glucose Medical STRIPS) 4-5 times Branch strip daily. blood sugar Yes Use to [employer] ers diagnostic 4-25 check ity of (FREESTYLE 00:00: blood [place] LITE 00 glucose Medical STRIPS) 4-5 times Branch strip daily. blood sugar Yes Use to Univ ers diagnostic 4-25 check ity of (FREESTYLE 00:00: blood [place] LITE 00 glucose Medical STRIPS) 4-5 times Branch strip daily. blood sugar Yes Use to [employer] ers diagnostic 4-25 check ity of (FREESTYLE 00:00: blood [place] LITE 00 glucose Medical STRIPS) 4-5 times Branch strip daily. blood sugar Yes Use to [employer] ers diagnostic 4-25 check ity of (FREESTYLE 00:00: blood [place] LITE 00 glucose Medical STRIPS) 4-5 times Branch strip daily. blood sugar Yes Use to [facility] [place] [facility] ers diagnostic 4-25 check ity of (FREESTYLE [...] 13:00:00 148 mm[Hg] Univer sity of pressure [place] [facility] Diastolic blood 2021-08-22 13:00:00 84 mm[Hg] Unive rsity of pressure [facility] Heart rate 2021-08-22 13:00:00 103 /min [facility] Respiratory rate 2021-08-22 13:00:00 18 /min Univ ersity of [place] [facility] [place] Oxygen saturation in 2021-08-22 13:00:00 95 /min University of Arterial blood by [facility] Pulse oximetry Branch Body temperature 2021-08-22 12:22:00 36.72 [place] Univ ersity of [place] [facility] Systolic blood 2020-12-17 18:35:00 139 mm[Hg] Univer sity of pressure [place] [facility] Diastolic blood 2020-12-17 18:35:00 87 mm[Hg] Unive rsity of pressure [place] [facility] Heart rate 2020-12-17 18:35:00 110 /min [facility] Body temperature 2020-12-17 18:35:00 37.72 [place] Univ ersity of [place] [facility] Respiratory rate 2020-12-17 18:35:00 18 /min Univ ersity of [place] [facility] Oxygen saturation in 2020-12-17 18:35:00 93 /min University of Arterial blood by [facility] Pulse oximetry Branch Body height 2020-12-12 08:21:00 180.3 cm [facility] Body weight 2020-12-12 08:21:00 103.42 kg [facility] BMI 2020-12-12 08:21:00 31.80 kg/m2 [facility] Systolic blood 2020-12-17 18:35:00 139 mm[Hg] Univer sity of pressure [place] [facility] Diastolic blood 2020-12-17 18:35:00 87 mm[Hg] Unive rsity of pressure [place] [facility] Heart rate 2020-12-17 18:35:00 110 /min [facility] [place] [facility] [place] Body temperature 2020-12-17 18:35:00 37.72 [place] Univ ersity [facility] [place] [facility] Respiratory rate 2020-12-17 18:35:00 18 /min Univ ersity of [place] [facility] Oxygen saturation in 2020-12-17 18:35:00 93 /min University of Arterial blood by [place] [employer] [facility] Pulse oximetry Branch Body height 2020-12-12 08:21:00 180.3 cm [facility] [place] [facility] [place] Body weight 2020-12-12 08:21:00 103.42 kg [facility] [place] [facility] [place] BMI 2020-12-12 08:21:00 31.80 kg/m2 [facility] [place] [facility] Systolic blood 2020-08-23 19:27:00 140 mm[Hg] Univer sity of pressure [place] [facility] Diastolic blood 2020-08-23 19:27:00 79 mm[Hg] Unive rsity of pressure [place] [facility] Heart rate 2020-08-23 19:27:00 99 /min [facility] [place] [facility] [place] Body temperature 2020-08-23 19:27:00 36 [place] Univ ersity [facility] [place] [facility] Respiratory rate 2020-08-23 19:27:00 18 /min Univ ersity of [place] [facility] Oxygen saturation in 2020-08-23 19:27:00 93 /min University of Arterial blood by [place] [employer] Pulse oximetry Branch Body weight 2020-08-21 07:20:00 104.962 kg [facility] [place] [facility] BMI 2020-08-21 07:20:00 32.27 kg/m2 [facility] [place] [facility] Systolic blood 2020-08-23 19:27:00 140 mm[Hg] Univer sity of pressure [place] [facility] Diastolic blood 2020-08-23 19:27:00 79 mm[Hg] Unive rsity of pressure [place] [facility] Heart rate 2020-08-23 19:27:00 99 /min [facility] [place] [facility] Body temperature 2020-08-23 19:27:00 36 [place] [facility] Respiratory rate 2020-08-23 19:27:00 18 /min [facility] Oxygen saturation in 2020-08-23 19:27:00 93 /min [facility] Arterial blood by [facility] Pulse oximetry [place] Body weight 2020-08-21 07:20:00 104.962 kg [facility] BMI 2020-08-21 07:20:00 32.27 kg/m2 [facility] Procedures Procedure Date / Time Performing Clinician Source Performed POCT GLUCOSE (AUTOMATED) 2020-12-17 15:42:00 Harrison[facility]OL[facility] 2020-12-17 10:45:00 Paul Bean [facility] (NA, K, CL, CO2, GLUCOSE, [facility] Medica l Branch BUN, CREATININE, CA) CBC WITH DIFF 2020-12-17 10:45:00 Paul Bean [facility] POCT GLUCOSE (AUTOMATED) 2020-12-17 02:36:00 Harrison, Premal G Uni [facility] XR TIBIA FIBULA 2 VW LEFT 2020-12-16 23:38:00 Paul Bean U [facility] POCT GLUCOSE (AUTOMATED) 2020-12-16 23:20:00 Harrison, [facility] PO[facility]UCOSE (AUTOMATED) 2020-12-16 20:10:00 Harrison, Premal G Uni versity of [facility] POCT GLUCOSE (AUTOMATED) 2020-12-16 14:43:00 Harrison, Premal [facility] BASIC METABOLIC PANEL 2020-12-16 13:51:00 Paul Bean [facility] (NA, K, CL, CO2, GLUCOSE, [facility] BUN, CREATININE, CA) CBC WITH DIFF 2020-12-16 13:51:00 Paul Bean [facility] POCT GLUCOSE (AUTOMATED) 2020-12-16 04:00:00 Harrison, Premal [facility] POCT GLUCOSE (AUTOMATED) 2020-12-16 00:14:00 Harrison, Premal G Uni versity of [facility] CT CHEST PULMONARY 2020-12-15 22:29:38 Paul Bean [facility] ANGIOGRAM [facility] POCT GLUCOSE (AUTOMATED) 2020-12-15 19:26:00 Harrison, Premal G Uni versity of [facility] POCT GLUCOSE (AUTOMATED) 2020-12-15 15:13:00 Harrison, Premal G Uni versity of [facility] HB ECG ROUTINE & RHYTHM 2020-12-15 14:25:27 Cailin Romo [facility] Branch MAGNESIUM 2020-12-15 12:01:00 Paul Bean Sivakumar [facility] BASIC METABOLIC PANEL 2020-12-15 12:01:00 Paul Bean [facility] (NA, K, CL, CO2, GLUCOSE, [place] [facility] BUN, CREATININE, CA) CBC WITH DIFF 2020-12-15 12:01:00 Paul Bean [facility] POCT GLUCOSE (AUTOMATED) 2020-12-15 03:57:00 Harrison, Premal G Uni versity of [facility] POCT GLUCOSE (AUTOMATED) 2020-12-14 23:31:00 Harrison, Premal G Uni versity of [facility] POCT GLUCOSE (AUTOMATED) 2020-12-14 19:08:00 Harrison, Premal G Uni versity of [facility] POCT GLUCOSE (AUTOMATED) 2020-12-14 15:11:00 Harrison, Premal G Uni versity of [facility] POCT GLUCOSE (AUTOMATED) 2020-12-14 02:36:00 Harrison, Premal G Uni versity of [facility] POCT GLUCOSE (AUTOMATED) 2020-12-13 23:32:00 Harrison, Premal G Uni versity of [facility] POCT GLUCOSE (AUTOMATED) 2020-12-13 18:08:00 Harrison, Premal G Uni versity of [facility] BASIC METABOLIC PANEL 2020-12-13 15:39:00 Paul Bean [facility] (NA, K, CL, CO2, GLUCOSE, [place] [facility] BUN, CREATININE, CA) CBC WITH DIFF 2020-12-13 15:39:00 Paul Bean Sivakumar [facility] POCT GLUCOSE (AUTOMATED) 2020-12-13 14:06:00 Harrison, [facility]al [facility] POCT GLUCOSE (AUTOMATED) 2020-12-13 03:07:00 Harrison, Premal [facility] POCT GLUCOSE (AUTOMATED) 2020-12-12 23:52:00 Harrison, Premal [facility] POCT GLUCOSE (AUTOMATED) 2020-12-12 20:28:00 Harrison, Premal [facility] POCT GLUCOSE (AUTOMATED) 2020-12-12 19:14:00 Harrison, Premal [facility] POCT GLUCOSE (AUTOMATED) 2020-12-12 14:33:00 Harrison, Premal [facility] MAGNESIUM 2020-12-12 08:58:00 Paul Bean Sivakumar [facility] BASIC METABOLIC PANEL 2020-12-12 08:58:00 Paul Bean [facility] (NA, K, CL, CO2, GLUCOSE, [place] [facility] BUN, CREATININE, CA) CBC WITH DIFF 2020-12-12 08:58:00 Paul Bean Sivakumar [facility] US ABDOMEN LIMITED 2020-12-12 06:32:26 Paul Bean Sivakumar [facility] POCT GLUCOSE (AUTOMATED) 2020-12-12 03:40:00 Harrison, Premal G Uni [facility] POCT GLUCOSE (AUTOMATED) 2020-12-12 00:06:00 Harrison, Premal G Uni [facility] XR HIPS 3 VW LEFT 2020-12-11 20:20:00 Darnell Beanaham Sivakumar [facility] HB ECG ROUTINE & RHYTHM 2020-12-11 20:04:06 Cailin Romo [facility] VITAMIN B6, PLASMA 2020-12-11 19:17:00 [facility] POCT GLUCOSE (AUTOMATED) 2020-12-11 19:06:00 Rene Harrison [facility] CREATINE KINASE 2020-12-11 18:22:00 Clarisse [facility] VITAMIN B12, LEVEL 2020-12-11 18:22:00 Paul Bean [facility] FOLATE 2020-12-11 18:22:00 Vikas [facility] THYROID STIMULATING 2020-12-11 18:22:00 Cailin Romo [facility] HORMONE [facility] PROCALCITONIN 2020-12-11 18:22:00 Vikas [facility] VITAMIN B1 (THIAMINE), 2020-12-11 18:22:00 Paul Bean Sivakumar [facility] WHOLE BLOOD [facility] CT HEAD WO CONTRAST 2020-12-11 14:07:35 Sweetie Stout [facility] URINALYSIS 2020-12-11 13:44:[address] [facility] URINE CULTURE 2020-12-11 13:44:00 [facility] COVID-19 (ID NOW RAPID 2020-12-11 12:31:00 Paco Lacey [facility] TESTING) [facility] LAB ONLY COVID 2020-12-11 12:31:00 Singer [facility] XR CHEST 1 VW 2020-12-11 12:07:[address] [facility] [address] [facility] BLOOD CULTURE SCREEN 2020-12-11 12:02:00 Paco Lacey [facility] MAGNESIUM 2020-12-11 12:02:00 Paul Bean Sivakumar [facility] FERRITIN SERUM 2020-12-11 12:02:00 Darnell Beanaham Sivakumar [facility] COMP. METABOLIC PANEL 2020-12-11 12:02:00 Paco Lacey [facility] ([id number]) Medical Branch CBC WITH DIFF 2020-12-11 12:02:[address] [facility] [address] [facility] LACTIC ACID WHOLE BLOOD 2020-12-11 12:02:00 Paco Lacey [facility] BLOOD CULTURE SCREEN 2020-12-11 11:42:00 Paco Lacey [facility] EMERGENCY SERVICES 2020-12-11 06:01:00 Doctor Tabitha, [facility] AGREEMENTS AND [place] [facility] AUTHORIZATIONS HOSPITAL ADMISSION 2020-12-11 06:01:00 Doctor Tabitha [facility] [place] [facility] HOME HEALTH - OTHER 2020-11-11 06:01:00 Doctor Tabitha [facility] [place] [facility] HEALTH - OTHER 2020-10-30 06:01:00 Doctor Tabitha [facility] Name [facility] EXTERNAL PROVIDER RECORDS 2020-09-01 06:01:00 Doctor Tabitha, [facility] Name [facility] POCT GLUCOSE (AUTOMATED) 2020-08-23 18:09:00 Kelly Washington [facility] POCT GLUCOSE (AUTOMATED) 2020-08-23 14:14:00 Kelly Washington [facility] MAGNESIUM 2020-08-23 11:18:00 [facility] BASIC METABOLIC PANEL 2020-08-23 11:18:00 [facility] (NA, K, CL, CO2, GLUCOSE, Medica l Branch BUN, CREATININE, CA) CBC WITH DIFF 2020-08-23 11:18:00 [facility] POCT GLUCOSE (AUTOMATED) 2020-08-23 10:21:00 [facility] 2020-08-23 05:55:00 Kelly [place] versity [facility] POCT GLUCOSE (AUTOMATED) 2020-08-23 03:00:00 Kelly [place] versity [facility] POCT GLUCOSE (AUTOMATED) 2020-08-22 23:38:00 Kelly Washington Uni versity [facility] POCT GLUCOSE (AUTOMATED) 2020-08-22 19:04:00 Washington, Kelly Uni [facility] POCT GLUCOSE (AUTOMATED) 2020-08-22 13:49:00 Kelly [place] [facility] MAGNESIUM 2020-08-22 10:10:00 Ramya, [facility] HEPATIC FUNCTION PANEL 2020-08-22 10:10:00 Jill Aguila [facility] ([id number]) (ALB,T.PRO,BILI Medical Branch T,BU/BC,ALT,AST,ALK PHOS) BASIC METABOLIC PANEL 2020-08-22 10:10:00 Ramya, [facility] (NA, K, CL, CO2, GLUCOSE, Medica l Branch BUN, CREATININE, CA) LIPID PANEL ([id number])(TOTAL 2020-08-22 10:10:00 [place], [facility] TRIGLYCERIDES, HDL) CBC WITH DIFF 2020-08-22 10:10:00 [facility] POCT GLUCOSE (AUTOMATED) 2020-08-22 10:10:00 Kelly Washington [facility] POCT GLUCOSE (AUTOMATED) 2020-08-22 07:13:00 Kelly Washington [facility] POCT GLUCOSE (AUTOMATED) 2020-08-22 02:24:00 Kelly Washington [facility] POCT GLUCOSE (AUTOMATED) 2020-08-21 23:40:00 Kelly Washington [facility] POCT GLUCOSE (AUTOMATED) 2020-08-21 18:10:00 Kelly Washington [facility] POCT GLUCOSE (AUTOMATED) 2020-08-21 13:39:00 Kelly Washington [facility] ETHANOL 2020-08-21 12:35:00 [facility] ACTIVATED PARTIAL 2020-08-21 12:35:00 Padmini [facility] THRMPLAS [facility] GALV ONLY - SYPHILIS 2020-08-21 12:35:00 Padmini Kelly [facility] IGG/IGM [facility] LACTATE DEHYDROGENASE 2020-08-21 10:09:00 [place], [facility] GALV/CLC ONLY - URINE 2020-08-21 10:09:00 Jos Quiroz [facility] DRUG (IMMUNOASSAY) - 4 ER Medica l Branch PANEL URINALYSIS 2020-08-21 10:09:00 [place], [facility] URINE CULTURE 2020-08-21 10:09:00 [place], [facility] PROCALCITONIN 2020-08-21 10:09:00 [place], [facility] POCT GLUCOSE (AUTOMATED) 2020-08-21 09:41:00 Kelly Washington [facility] PROTHROMBIN TIME / INR 2020-08-21 08:32:00 [place], [facility] ACTIVATED PARTIAL 2020-08-21 08:32:00 [place], [facility] THRMPLAS [facility] C-REACTIVE PROTEIN 2020-08-21 08:31:00 Ramya, [facility] HEPATIC FUNCTION PANEL 2020-08-21 08:31:00 [place], [facility] ([id number]) (ALB,T.PRO,BILI Medical Branch T,BU/BC,ALT,AST,ALK PHOS) BASIC METABOLIC PANEL 2020-08-21 08:31:00 [place], [facility] (NA, K, CL, CO2, GLUCO[facility], [facility] [place] BUN, CREATININE, CA) SEDIMENTATION RATE 2020-08-21 08:31:00 [place], [facility] CBC WITH DIFF 2020-08-21 08:31:00 [place], [facility] GLYCOSYLATED HEMOGLOBIN 2020-08-21 08:31:00 Ramya, [facility] (A1C) [facility] HIV 1/2 AG-AB WITH REFLEX 2020-08-21 08:31:00 Kelly [place] [facility] COVID-[facility] (ID NOW RAPID 2020-08-21 08:20:00 [place], [facility] TESTING) Medical Branch LAB ONLY COVID 2020-08-21 08:20:00 [place], [facility] o f [facility] Encounters Start End Encounter Admission Attending Care Care Encounter Source Date/Time Date/Time Type Type Clinicians Facility Department ID 2020-08-21 Inpatient Shayy [facility] KVNG [id number] Univers 01:07:00 KELLY cantu [facility] 2021-08-22 2021-08-22 Emergency [facility] ERT [id number] Univers 06:21:00 08:02:00 SWEETIE cantu [facility] 2021-08-22 2021-08-22 [facility] [id number] Univers 06:21:00 08:02:00 Sweetie OREN [id number] i ty of [place] [id number] [facility] 084 [place] 2021-08-09 2021-08-09 Outpatient ZAKI, [facility] [id number] [facility] 10:27:03 10:27:03 ADRIANA lopez of Medicin e 2020-12-28 2020-12-28 Telephone [facility] 1.2.840.114 [id number] 00:00:00 00:00:00 Calvin H PRIMARY [id number] CARE 4.2.7.2.686 PAVILLION [id number] 220 2020-12-28 2020-12-28 Telephone [facility] 1.2.840.114 [id number] Univers 00:00:00 00:00:00 Calvin H PRIMARY [id number] it y of CARE 4.2.7.2.686 [place] [facility] [id number] Ok dical 220 Branch 2020-12-19 2020-12-19 Transition Tuan Peters 1.2.840.114 [id number] 00:00:00 00:00:00 of Care Ruchi Braswell [id number] [place] 4.2.7.2.686 [id number] 2020-12-19 2020-12-19 Transition Tuan Peters 1.2.840.114 [id number] Univers 00:00:00 00:00:00 of Care Ruchi Braswell [id number] it [place] of [place] 4[place]2.7.2.686 [place] [id number] [facility] 403 Branch 2020-12-11 2020-12-17 [facility] Paco Lacey 1.2.840.1 [id number] 05:11:00 16:00:[address] [id number] [facility] 4.2.7.2.686 [id number] [facility] 2020-12-11 2020-12-17 [facility] 1.2.840.1 [id number] [facility] 05:11:00 16:00:00 Encounter Rene Harrison [id number] ity of [facility] 4.2.7.2.686 [place] [id number] [place] [id number] [place] 2020-12-11 2020-12-11 Emergency X [facility] ERT [id number] Univers 05:11:00 05:11:00 [facility] 2020-11-16 2020-11-16 Emergency X [facility] ERT [id number] Univers 09:31:00 09:31:00 [facility] 2020-11-11 2020-11-11 Orders Doctor CUI 1.2.840.114 [id number] 00:00:00 00:00:00 Only Unassigned, MONIQUE [id number] [place] [facility] 4.2.7.2.686 [id number] 2020-11-11 2020-11-11 Orders Doctor CUI 1.2.840.114 [id number] Univers 00:00:00 00:00:00 Only Unassigned, MONIQUE [id number] ity of [place] [facility] 4.2.7.2.686 Jeff as [id number] [facility] 009 [place] 2020-11-07 2020-11-07 Telephone Wilder [facility] [id number] 00:00:00 00:00:00 Angi Tobin [id number] [place] 4.2.7.2.686 Professio [id number] [address] 2020-11-07 2020-11-07 Telephone Hdz [facility] [id number] [id number] [facility] 00:00:00 00:00:00 Sendil DiegoWongHawaWong Tobin [id number] ity of [place] 4.2.7.2.686 [place] Professio [id number] [address] 2020-10-30 2020-10-30 Orders Doctor BASILIA 1.2.840.114 [id number] 00:00:00 00:00:00 Only Unassigned, MONIQUE [id number] [place] [facility] 4.2.7.2.686 [id number] [facility] 2020-10-30 2020-10-30 Orders Doctor CUI 1.2.840.114 [id number] Univers 00:00:00 00:00:00 Only Unassigned, MONIQUE [id number] ity of [place] [facility] 4.2.7.2.686 Jeff as [id number] [address] 2020-09-26 2020-09-26 Telephone [facility] 1.2.840.114 [id number] 00:00:00 00:00:00 [place] [id number] CLINICS 4.2.7.2.686 [id number] [facility] 2020-09-26 2020-09-26 Telephone [facility] 1.2.840.114 [id number] Univers 00:00:00 00:00:00 [place] [id number] i ty of CLINICS 4.2.7.2.686 [place] [id number] [address] 2020-09-01 2020-09-01 Orders Doctor CUI 1.2.840.114 [id number] 00:00:00 00:00:00 Only Unassigned, MONIQUE 350.1.13.10 [place] [facility] 4.2.7.2.686 [id number] 009 2020-09-01 2020-09-01 Orders Doctor BASILIA 1.2.840.114 [id number] Univers 00:00:00 00:00:00 Only Unassigned, MONIQUE [id number] ity of [place] [facility] 4.2.7.2.686 Jeff as [id number] [facility] 009 Branch 2020-08-25 2020-08-25 Transition Tuan Peters 1.2.840.114 [id number] 00:00:00 00:00:00 of Care Ruchi Braswell [id number] [place] 4.2.7.2.686 [id number] [facility] 2020-08-25 2020-08-25 Transition Tuan Peters 1.2.840.114 [id number] [facility] 00:00:00 00:00:00 of Care Ruchi Braswell [id number] it [place]7.2.[place] [id number] [address] 2020-08-21 2020-08-23 [facility] Ayleen 1.2.840.114 [id number] 01:07:00 18:35:00 Encounter Kelly Amaya [id number] [facility] 4.2.7.2.686 [id number] [facility] 2020-08-21 2020-08-23 [facility]. 2.840.114 [id number] [facility] 01:07:00 18:35:00 Encounter Nicci Mukul Kika Monique 350.1.13. 10 ity [facility] 4.2.7.2.686 Jeff as [id number] [address] Results Test Description Test Time Test Comments Results Result Comments Source POCT GLUCOSE (AUTOMATED) 2020-12-17 15:43:35 Test Item Value Reference Range Interpretation Comme nts POCT GLU (test code = 7360500085) 129 mg/dL 70-110 H Lab Interpretation (test code = 90425-2) Abnormal [facility] METABOLIC PANEL (NA, K, CL, CO2, GLUCOSE, BUN, CREATININE, CA)2020-12-17 11:45:07 Test Item Value Reference Range Interpretation Comments NA (test code = 137 mmol/L 135-145 1122203901) K (test code = 3.5 mmol/L 3.5-5.0 4161927398) CL (test code = 103 mmol/L 98-108 2414278486) CO2 TOTAL (test code = 26 mmol/L 23-31 3778592393) AGAP (test code = 2-16 7231299054) BUN (test code = 11 mg/dL 7-23 4317483030) GLUCOSE (test code = 175 mg/dL 70-110 H 5217732637) CREATININE (test code = 0.62 mg/dL 0.60-1.25 7115423479) CALCIUM (test code = 9.0 mg/dL 8.6-10.6 4924391798) eGFR Calculation mL/min/1.73m2 (Non-) (test code = 7855499679) eGFR Calculation mL/min/1.73m2 () (test code = 3098847631) JAMES (test code = JAMES) Association of [...] tests). Lab Interpretation Abnormal (test code = 38879-1) [facility] WITH [id number] 11:07:27 Test Item Value Reference Range Interpretation [...] RDW-SD (test code = 45.2 fL 38.5-51.6 27447-7) RDW-CV (test code = 16.9 % 12.1-15.4 H 788-0) PLT (test code = See_Comment H [Automated 777-3) message] The sy stem which generated this result transmitted reference range : 150 - 328 10*3/ ?L. The reference r torito was not used to interpret this result as normal/abnormal . MPV (test code = 8.1 fL 9.8-13.0 L 46107-1) NRBC/100 WBC (test See_Comment [Automat ed code = 5404275322) message] The system which generated this result transmitted reference range : 0.0 - 10.0 /100 WBCs. The refer ence range was not u sed to interpret th is result as normal/abnormal . NRBC x10^3 (test code <0.01 See_Comment [Auto mated = 5949053629) message] The s ysteStribe which generated this result transmitted reference range : 10*3/?L. The reference range was not used to interpret this result as normal/abnormal . GRAN MAT (NEUT) % 72.8 % (test code = 770-8) IMM GRAN % (test code 0.60 % = 1155792895) LYMPH % (test code = 18.4 % 736-9) MONO % (test code = 5.7 % 5905-5) EOS % (test code = 1.8 % 713-8) BASO % (test code = 0.7 % 706-2) GRAN MAT x10^3(ANC) 8.23 10*3/uL 1.99-6.95 H (test code = 5976100903) IMM GRAN x10^3 (test 0.07 10*3/uL 0.00-0.06 H code = 2730087275) LYMPH x10^3 (test code 2.08 10*3/uL 1.09-3.23 = 731-0) MONO x10^3 (test code 0.65 10*3/uL 0.36-1.02 = 742-7) EOS x10^3 (test code = 0.20 10*3/uL 0.06-0.53 711-2) BASO x10^3 (test code 0.08 10*3/uL 0.01-0.09 = 704-7) Lab Interpretation Abnormal (test code = 91579-7) [facility] 06:03:38 Test Item Value Reference Range Interpretation Comments POCT GLU (test code = 7041801004) 75 mg/dL 70-110 Lab Interpretation (test code = Normal 02520-8) [facility], [id number] 00:01:00 Test Item Value Reference Range Interpretation Comments VIT B6 (test code = 13.1 nmol/L 20.0-125.0 L INTERPRE TIVE 30460-6) INFORMATION: Vi tamin B6 (Pyridoxal 5-Phosphate) Pyridoxal [...] intended for cl inical purposes.Perfor med By: [employer] [place] [address] [id number] Director: Namrata Klein MD Lab Interpretation Abnormal (test code = 57748-4) [facility] TIBIA FIBULA 2 VW [id number] 23:57:09 Tricompartmental knee joint osteoarthrosis.XR TIBIA FIBULA [...] No acute fracture or dislocation.IMPRESSIONTricompartmental knee joint osteoarthrosis.[facility] GLUCOSE (AUTOMATED) 2020-12-16 23:27:00 Test Item Value Reference Range Interpretation Comments POCT GLU (test code = 7108586840) 114 mg/dL 70-110 H Lab Interpretation (test code = Abnormal 17414-7) [facility] GLUCOSE (AUTOMATED)2020-12-16 20:12:00 Test Item Value Reference Range Interpretation Comments POCT GLU (test code = 0370508272) 105 mg/dL 70-110 Lab Interpretation (test code = Normal 50173-6) [facility] GLUCOSE (AUTOMATED)2020-12-16 14:44:00 Test Item Value Reference Range Interpretation Comments POCT GLU (test code = 8787295257) 153 mg/dL 70-110 H Lab Interpretation (test code = Abnormal 53086-8) [facility] METABOLIC PANEL (NA, K, CL, CO2, GLUCOSE, BUN, CREATININE, CA)2020-12-16 14:23:00 Test Item Value Reference Range Interpretation Comments NA (test code = 138 mmol/L 135-145 4836476484) K (test code = 3.4 mmol/L 3.5-5.0 L 9947648929) CL (test code = 100 mmol/L 98-108 2369808260) CO2 TOTAL (test code = 31 mmol/L 23-31 1931242732) AGAP (test code = 2-16 2406444987) BUN (test code = 11 mg/dL 7-23 9003596712) GLUCOSE (test code = 162 mg/dL 70-110 H 9318234343) CREATININE (test code = 0.64 mg/dL 0.60-1.25 6163907650) CALCIUM (test code = 8.9 mg/dL 8.6-10.6 6870864222) eGFR Calculation mL/min/1.73m2 (Non-) (test code = 4613537876) eGFR Calculation mL/min/1.73m2 () (test code = 3808787371) JAMES (test code = JAMES) Association of [...] tests). Lab Interpretation Abnormal (test code = 21507-3) [facility] WITH [id number] 14:05:00 Test Item Value Reference Range Interpretation [...] RDW-SD (test code = 45.4 fL 38.5-51.6 07088-7) RDW-CV (test code = 17.0 % 12.1-15.4 H 788-0) PLT (test code = See_Comment H [Automated 777-3) message] The sy stem which generated this result transmitted reference range : 150 - 328 10*3/ ?L. The reference r torito was not used to interpret this result as normal/abnormal . MPV (test code = 8.0 fL 9.8-13.0 L 44259-7) NRBC/100 WBC (test See_Comment [Automat ed code = 7633370303) message] The system which generated this result transmitted reference range : 0.0 - 10.0 /100 WBCs. The refer ence range was not u sed to interpret th is result as normal/abnormal . NRBC x10^3 (test code <0.01 See_Comment [Auto mated = 5095640187) message] The s ystem which generated this result transmitted reference range : 10*3/?L. The reference range was not used to interpret this result as normal/abnormal . GRAN MAT (NEUT) % 70.0 % (test code = 770-8) IMM GRAN % (test code 0.70 % = 2686365354) LYMPH % (test code = 20.5 % 736-9) MONO % (test code = 7.1 % 5905-5) EOS % (test code = 1.0 % 713-8) BASO % (test code = 0.7 % 706-2) GRAN MAT x10^3(ANC) 9.44 10*3/uL 1.99-6.95 H (test code = 3586799217) IMM GRAN x10^3 (test 0.09 10*3/uL 0.00-0.06 H code = 2725046816) LYMPH x10^3 (test code 2.76 10*3/uL 1.09-3.23 = 731-0) MONO x10^3 (test code 0.96 10*3/uL 0.36-1.02 = 742-7) EOS x10^3 (test code = 0.13 10*3/uL 0.06-0.53 711-2) BASO x10^3 (test code 0.10 10*3/uL 0.01-0.09 H = 704-7) Lab Interpretation Abnormal (test code = 90796-0) [facility] District[facility] - Peripheral # [id number] 13:01:00 Test Item Value Reference Range Interpretation Comments Blood Culture-Aerobic No organisms No growth Previo us (test code = 59312-0) isolated prelim inary verified result was Culture In Progress on 12/11/2020 at 100 1 CSTPrevious preliminary verified result was No growth a t 24 hours on 12/12/2020 at 070 1 CSTPrevious preliminary verified result was No growth a t 48 hours on 12/13/2020 at 070 1 CSTPrevious preliminary verified result was No growth a t 72 hours on 12/14/2020 at 070 1 [employer] Blood No organisms No growth Previous Culture-Anaerobic isolated preliminar y (test code = 63523-2) verifi ed result was Culture In Progress on 12/11/2020 at 100 1 CSTPrevious preliminary verified result was No growth a t 24 hours on 12/12/2020 at 070 1 CSTPrevious preliminary verified result was No growth a t 48 hours on 12/13/2020 at 070 1 CSTPrevious preliminary verified result was No growth a t 72 hours on 12/14/2020 at 070 1 [employer] Lab Interpretation Normal (test code = 88593-2) [facility] [id number] 13:01:00 Test Item Value Reference Range Interpretation Comments Blood Culture-Aerobic No organisms No growth Previo us (test code = 45258-7) isolated prelim inary verified result was Culture In Progress on 12/11/2020 at 100 1 CSTPrevious preliminary verified result was No growth a t 24 hours on 12/12/2020 at 070 1 CSTPrevious preliminary verified result was No growth a t 48 hours on 12/13/2020 at 070 1 CSTPrevious preliminary verified result was No growth a t 72 hours on 12/14/2020 at 070 1 [employer] Blood No organisms No growth Previous Culture-Anaerobic isolated preliminar y (test code = 25976-5) verifi ed result was Culture In Progress on 12/11/2020 at 100 1 CSTPrevious preliminary verified result was No growth a t 24 hours on 12/12/2020 at 070 1 CSTPrevious preliminary verified result was No growth a t 48 hours on 12/13/2020 at 070 1 CSTPrevious preliminary verified result was No growth a t 72 hours on 12/14/2020 at 070 1 [employer] Lab Interpretation Normal (test code = 52732-0) [facility] GLUCOSE (AUTOMATED)2020-12-16 04:01:00 Test Item Value Reference Range Interpretation Comments POCT GLU (test code = 3472965708) 156 mg/dL 70-110 H Lab Interpretation (test code = Abnormal 74254-2) [facility] GLUCOSE (AUTOMATED)2020-12-16 00:24:00 Test Item Value Reference Range Interpretation Comments POCT GLU (test code = 8151434735) 115 mg/dL 70-110 H Lab Interpretation (test code = Abnormal 40218-7) [facility] CHEST PULMONARY [id number] 23:34:55No pulmonary emboli. No interval change in [...] of intra and extrahepatic biliary du ctal dilatation.[facility] GLUCOSE (AUTOMATED) 2020-12-15 19:28:00 Test Item Value Reference Range Interpretation Comments POCT GLU (test code = 9079350233) 140 mg/dL 70-110 H Lab Interpretation (test code = Abnormal 74025-0) [facility] 15:26:00 Test Item Value Reference Range Interpretation Comments MAGNESIUM (test code = 1570018500) 2.2 mg/dL 1.7-2.4 Lab Interpretation (test code = Normal 62129-6) [facility]2020-12-15 15:15:00 Test Item Value Reference Range Interpretation Comments POCT GLU (test code = 4511619191) 181 mg/dL 70-110 H Lab Interpretation (test code = Abnormal 47303-4) [facility] (NA, K, CL, CO2, GLUCOSE, BUN, CREATININE, CA)2020-12-15 13:07:00 Test Item Value Reference Range Interpretation Comments NA (test code = 136 mmol/L 135-145 9404216672) K (test code = 3.6 mmol/L 3.5-5.0 3340525105) CL (test code = 96 mmol/L 98-108 L 3063517499) CO2 TOTAL (test code = 29 mmol/L 23-31 4392317218) AGAP (test code = 2-16 8617319078) BUN (test code = 12 mg/dL 7-23 2575306651) GLUCOSE (test code = 183 mg/dL 70-110 H 1657436249) CREATININE (test code = 0.70 mg/dL 0.60-1.25 1055153205) CALCIUM (test code = 9.2 mg/dL 8.6-10.6 8775620752) eGFR Calculation mL/min/1.73m2 (Non-) (test code = 8445248497) eGFR Calculation mL/min/1.73m2 () (test code = 7900140223) JAMES (test code = JAMES) Association of [...] tests). Lab Interpretation Abnormal (test code = 57019-0) [facility] WITH [id number] 12:32:00 Test Item Value Reference Range Interpretation Comments WBC (test code = See_Comment H [Automated 9890-2) message] The system which generated this result transmit ronan reference range : 4.20 - 10.70 10*3/?L. The reference range was not used to interpret this result as normal/abnormal . RBC (test code = See_Comment H [Automated 319-8) message] The system which generated this result [...] RDW-SD (test code = 44.4 fL 38.5-51.6 39605-1) RDW-CV (test code = 17.7 % 12.1-15.4 H 788-0) PLT (test code = See_Comment H [Automated 777-3) message] The system which generated this result transmit ronan reference range : 150 - 328 10*3/ ?L. The reference range was not u sed to interpret th is result as normal/abnormal . MPV (test code = 8.1 fL 9.8-13.0 L 69673-4) NRBC/100 WBC (test See_Comment [Automat ed code = 0145976754) message] The system which generated this result transmit ronan reference range : 0.0 - 10.0 /100 WBCs. The reference range was not used to interpret this result as normal/abnormal . NRBC x10^3 (test code <0.01 See_Comment [Auto mated = 2380904879) message] The system which generated this result transmit ronan reference range : 10*3/?L. The reference range was not used to interpret this result as normal/abnormal . GRAN MAT (NEUT) % 74.5 % (test code = 770-8) IMM GRAN % (test code 0.70 % = 7820947141) LYMPH % (test code = 17.4 % 736-9) MONO % (test code = 6.8 % 5905-5) EOS % (test code = 0.2 % 713-8) BASO % (test code = 0.4 % 706-2) GRAN MAT x10^3(ANC) 11.99 10*3/uL 1.99-6.95 H (test code = 6490046387) IMM GRAN x10^3 (test 0.11 10*3/uL 0.00-0.06 H code = 7417966301) LYMPH x10^3 (test code 2.80 10*3/uL 1.09-3.23 = 731-0) MONO x10^3 (test code 1.10 10*3/uL 0.36-1.02 H = 742-7) EOS x10^3 (test code = 0.03 10*3/uL 0.06-0.53 L 711-2) BASO x10^3 (test code 0.06 10*3/uL 0.01-0.09 = 704-7) Lab Interpretation Abnormal (test code = 63730-9) [facility] GLUCOSE (AUTOMATED)2020-12-15 04:16:00 Test Item Value Reference Range Interpretation Comments POCT GLU (test code = 4362432300) 200 mg/dL 70-110 H Lab Interpretation (test code = Abnormal 03220-3) [facility] (THIAMINE), WHOLE [id number] 00:30:00 Test Item Value Reference Range Interpretation Comments Vitamin B1, Whole 136 nmol/L 70-180 INTERPRETI VE INFORMATION: Blood (test code = Vitamin B 1, Whole Blood 12374-4) This assay júnior ures the concentration o [...] for clinical purposes.Perfor med By: [employer] [place] [address] [id number] aboratory Director: Namrata Klein MD [facility] GLUCOSE (AUTOMATED)2020-12-14 23:35:00 Test Item Value Reference Range Interpretation Comments POCT GLU (test code = 6703674557) 151 mg/dL 70-110 H Lab Interpretation (test code = Abnormal 45635-4) [facility] GLUCOSE (AUTOMATED)2020-12-14 19:19:00 Test Item Value Reference Range Interpretation Comments POCT GLU (test code = 2404956189) 193 mg/dL 70-110 H Lab Interpretation (test code = Abnormal 85377-3) [facility] GLUCOSE (AUTOMATED)2020-12-14 15:22:00 Test Item Value Reference Range Interpretation Comments POCT GLU (test code = 2902378418) 221 mg/dL 70-110 H Lab Interpretation (test code = Abnormal 91764-4) [facility] GLUCOSE (AUTOMATED)2020-12-14 02:37:00 Test Item Value Reference Range Interpretation Comments POCT GLU (test code = 0558449519) 210 mg/dL 70-110 H Lab Interpretation (test code = Abnormal 77230-2) [facility] GLUCOSE (AUTOMATED)2020-12-13 23:33:00 Test Item Value Reference Range Interpretation Comments POCT GLU (test code = 2489808762) 182 mg/dL 70-110 H Lab Interpretation (test code = Abnormal 90243-8) [facility] GLUCOSE (AUTOMATED)2020-12-13 18:09:00 Test Item Value Reference Range Interpretation Comments POCT GLU (test code = 3902499932) 150 mg/dL 70-110 H Lab Interpretation (test code = Abnormal 70793-1) [facility] METABOLIC PANEL (NA, K, CL, CO2, GLUCOSE, BUN, CREATININE, CA)2020-12-13 16:27:00 Test Item Value Reference Range Interpretation Comments NA (test code = 136 mmol/L 135-145 4268329798) K (test code = 3.7 mmol/L 3.5-5.0 5917159095) CL (test code = 96 mmol/L 98-108 L 5240601951) CO2 TOTAL (test code = 29 mmol/L 23-31 3370134237) AGAP (test code = 2-16 3450104735) BUN (test code = 6 mg/dL 7-23 L 9695652311) GLUCOSE (test code = 212 mg/dL 70-110 H 5221224370) CREATININE (test code = 0.61 mg/dL 0.60-1.25 2847194365) CALCIUM (test code = 9.5 mg/dL 8.6-10.6 6415892957) eGFR Calculation mL/min/1.73m2 (Non-) (test code = 2600808000) eGFR Calculation mL/min/1.73m2 () (test code = 9511982430) JAMES (test code = JAMES) Association of [...] tests). Lab Interpretation Abnormal (test code = 48497-3) [facility] WITH [id number] 16:10:00 Test Item Value Reference Range Interpretation Comments WBC (test code = See_Comment H [Automated 1990-2) message] The sy stem which generated this result transmitted reference range : 4.20 - 10.70 10*3/?L. The reference range was not used to interpret this result as normal/abnormal . RBC (test code = See_Comment H [Automated 239-8) message] The sy stem which generated this [...] RDW-SD (test code = 43.3 fL 38.5-51.6 42631-4) RDW-CV (test code = 16.2 % 12.1-15.4 H 788-0) PLT (test code = See_Comment H [Automated 777-3) message] The sy stem which generated this result transmitted reference range : 150 - 328 10*3/ ?L. The reference r torito was not used to interpret this result as normal/abnormal . MPV (test code = 8.2 fL 9.8-13.0 L 95501-0) NRBC/100 WBC (test See_Comment [Automat ed code = 5253394557) message] The system which generated this result transmitted reference range : 0.0 - 10.0 /100 WBCs. The refer ence range was not u sed to interpret th is result as normal/abnormal . NRBC x10^3 (test code <0.01 See_Comment [Auto mated = 9451964278) message] The s ystem which generated this result transmitted reference range : 10*3/?L. The reference range was not used to interpret this result as normal/abnormal . GRAN MAT (NEUT) % 86.2 % (test code = 770-8) IMM GRAN % (test code 0.70 % = 1984064906) LYMPH % (test code = 10.2 % 736-9) MONO % (test code = 2.5 % 5905-5) EOS % (test code = 0.1 % 713-8) BASO % (test code = 0.3 % 706-2) GRAN MAT x10^3(ANC) 9.61 10*3/uL 1.99-6.95 H (test code = 1902123278) IMM GRAN x10^3 (test 0.08 10*3/uL 0.00-0.06 H code = 2951079325) LYMPH x10^3 (test code 1.14 10*3/uL 1.09-3.23 = 731-0) MONO x10^3 (test code 0.28 10*3/uL 0.36-1.02 L = 742-7) EOS x10^3 (test code = <0.03 0.06-0.53 L 711-2) BASO x10^3 (test code 0.03 10*3/uL 0.01-0.09 = 704-7) Lab Interpretation Abnormal (test code = 04892-0) [facility]2020-[facility]13 14:16:00 Test Item Value Reference Range Interpretation Comments POCT GLU (test code = 3325784418) 236 mg/dL 70-110 H Lab Interpretation (test code = Abnormal 44632-7) [facility] COVID [id number] 04:58:00COVID DMT InterpretationInterpretation/Recommendations: Molecular NAAT Tests for [...] COVID-19 testing the patient has had at [facility], including molecular NAAT testing (more commonly known as PCR testing and Rapid ID Now testing) and antibody testing. It does not take into account any testing that a patient has had outside of the [facility] medical record. [facility] LABORATORY SERVICESCOVID Resu prrUNVG-LqG-5 Rapid ID NOW (no units) ? ? Date ? Value ? 12/11/2020 ? Not Detected ? ? ? 11/16/2020 ? Not Detected ? ? ? 08/21/2020 ?Not Detected ? [facility]Un[facility] 2020-12-13 03:11:00 Test Item Value Reference Range Interpretation Comments POCT GLU (test code = 0980107560) 171 mg/dL 70-110 H Lab Interpretation (test code = Abnormal 79542-6) [facility] GLUCOSE (AUTOMATED)2020-12-13 00:00:00 Test Item Value Reference Range Interpretation Comments POCT GLU (test code = 1485179393) 118 mg/dL 70-110 H Lab Interpretation (test code = Abnormal 40820-9) [facility] GLUCOSE (AUTOMATED)2020-12-12 20:29:00 Test Item Value Reference Range Interpretation Comments POCT GLU (test code = 7425555898) 173 mg/dL 70-110 H Lab Interpretation (test code = Abnormal 39325-2) [facility] District[facility] ABDOMEN [id number] 19:56:17 1. ?Hepatic steatosis. However, limited evaluation [...] main portal veinwasevaluated with color Doppler imaging. Clinical Care Leader images were obtainedfor the record. COMPARISON: Ultrasound [...] normal where visualized. SPLEEN:No images were obtained. [facility], Radiant Results Inft User - 12/12/2020 1:57 PM CSTEXAM: US ABDOMEN LIMITEDHISTORY: 70 years-old male with RUQ ultrasound to assess for common bileduct dilation .TECHNIQUE: Limited abdominal ultrasound focused on the liver, biliarysystem, pancreas, and spleen was performed. The main portal vein wasevaluated with color Doppler imaging. Clinical Care Leader images were obtainedfor the record.COMPARISON: Ultrasound abdomen [...] this study and agree with the abovereport. [facility]2020-12-12 19:24:00 Test Item Value Reference Range Interpretation Comments POCT GLU (test code = 5005445988) 230 mg/dL 70-110 H Lab Interpretation (test code = Abnormal 99574-3) [facility] CHEST 1 [id number] 15:16:46 Low lung volumes with mild perihilar [...] have reviewed thisstudy and agree with theabove report.[facility]2020-12-12 14:34:00 Test Item Value Reference Range Interpretation Comments POCT GLU (test code = 6789040368) 225 mg/dL 70-110 H Lab Interpretation (test code = Abnormal 85530-0) [facility] DistrictURINE [id number] 13:28:00 Test Item Value Reference Range Interpretation Comments URINE CULTURE (test < 10,000 CFU/mL mixed code = 630-4) aerobic organisms - suggests endogenous microbial contamination [facility] (NA, K, CL, CO2, GLUCOSE, BUN, CREATININE, CA)2020-12-12 10:05:00 Test Item Value Reference Range Interpretation Comments NA (test code = 136 mmol/L 135-145 0769970779) K (test code = 3.5 mmol/L 3.5-5.0 5958693239) CL (test code = 100 mmol/L 98-108 9133470847) CO2 TOTAL (test code = 31 mmol/L 23-31 5905955199) AGAP (test code = 2-16 7197322541) BUN (test code = 7 mg/dL 7-23 5348019851) GLUCOSE (test code = 259 mg/dL 70-110 H 0339225715) CREATININE (test code = 0.63 mg/dL 0.60-1.25 4753985070) CALCIUM (test code = 8.5 mg/dL 8.6-10.6 L 7045284871) eGFR Calculation mL/min/1.73m2 (Non-) (test code = 9594591166) eGFR Calculation mL/min/1.73m2 () (test code = 9096361312) JAMES (test code = JAMES) Association of [...] tests). Lab Interpretation Abnormal (test code = 01267-5) [facility] DistrictMagnesium [id number] 10:05:00 Test Item Value Reference Range Interpretation Comments MAGNESIUM (test code = 0596071674) 1.9 mg/dL 1.7-2.4 Lab Interpretation (test code = Normal 17470-8) [facility] with [id number] 09:48:00 Test Item Value Reference Range Interpretation Comments WBC (test code = See_Comment [Automated 4313-2) message] The sy stem which generated this result transmitted reference range : 4.20 - 10.70 10*3/?L. The reference range was not used to interpret this result as normal/abnormal . RBC (test code = See_Comment [Automated 084-8) message] The sy stem which generated this [...] RDW-SD (test code = 46.0 fL 38.5-51.6 27046-8) RDW-CV (test code = 16.1 % 12.1-15.4 H 788-0) PLT (test code = See_Comment H [Automated 777-3) message] The sy stem which generated this result transmitted reference range : 150 - 328 10*3/ ?L. The reference r torito was not used to interpret this result as normal/abnormal . MPV (test code = 8.6 fL 9.8-13.0 L 51891-0) NRBC/100 WBC (test See_Comment [Automat ed code = 6970380650) message] The system which generated this result transmitted reference range : 0.0 - 10.0 /100 WBCs. The refer ence range was not u sed to interpret th is result as normal/abnormal . NRBC x10^3 (test code <0.01 See_Comment [Auto mated = 5001767057) message] The s ystem which generated this result transmitted reference range : 10*3/?L. The reference range was not used to interpret this result as normal/abnormal . GRAN MAT (NEUT) % 70.2 % (test code = 770-8) IMM GRAN % (test code 0.30 % = 8188105200) LYMPH % (test code = 18.8 % 736-9) MONO % (test code = 5.0 % 5905-5) EOS % (test code = 5.2 % 713-8) BASO % (test code = 0.5 % 706-2) GRAN MAT x10^3(ANC) 6.05 10*3/uL 1.99-6.95 (test code = 4740881513) IMM GRAN x10^3 (test 0.03 10*3/uL 0.00-0.06 code = 5732881228) LYMPH x10^3 (test code 1.62 10*3/uL 1.09-3.23 = 731-0) MONO x10^3 (test code 0.43 10*3/uL 0.36-1.02 = 742-7) EOS x10^3 (test code = 0.45 10*3/uL 0.06-0.53 711-2) BASO x10^3 (test code 0.04 10*3/uL 0.01-0.09 = 704-7) Lab Interpretation Abnormal (test code = 68601-2) [facility] GLUCOSE (AUTOMATED)2020-12-12 03:42:00 Test Item Value Reference Range Interpretation Comments POCT GLU (test code = 196 mg/dL 70-110 H Notifi ed Provider 3710981200) Lab Interpretation (test Abnormal code = 32980-8) [facility] DistrictF[facility]2021-[facility] 02:24:00 Test Item Value Reference Range Interpretation Comments FOLATE SER (test code = 8833076310) 5.8 ng/mL 3.0-20.0 Lab Interpretation (test code = Normal 23406-3) [facility] DistrictVITAMIN B12, [id number] 00:55:00 Test Item Value Reference Range Interpretation Comments VIT B12 (test code = 844 pg/mL 240-930 9250746136) JAMES (test code = JAMES) Biotin has been reported to cause a positive bias, interpret results relative to patient's use of biotin. Lab Interpretation (test Normal code = 34191-2) [facility] GLUCOSE (AUTOMATED)2020-12-12 00:14:00 Test Item Value Reference Range Interpretation Comments POCT GLU (test code = 4238123814) 164 mg/dL 70-110 H Lab Interpretation (test code = Abnormal 11937-7) [facility] DistrictCREATINE [id number] 23:42:00 Test Item Value Reference Range Interpretation Comments CK (test code = 2796392003) <20 33-194 L Lab Interpretation (test code = Abnormal 40803-0) [facility] DistrictTHYROID STIMULATING [id number] 23:17:00 Test Item Value Reference Range Interpretation Comments TSH (test code = See_Comment Biotin has been [id number]) reported to cau se a negative bias, interpret resul ts relative to pat ient's use of biotin. [Automated mess age] The system Helijia generated this result transmitted ref erence range: 0.45 - 4 .70 mIU/L. The refe rence range was not u sed to interpret this result as normal/abnor mal. Lab Interpretation (test Normal code = 17848-4) [facility] 3 VW [id number] 21:41:53No appreciable fracture lines. RL: 6200 ICAL [...] No osseous erosions.IMPRESSIONNo appreciable fracture lines.RL: 6200 [facility] 20:00:00 Test Item Value Reference Range Interpretation Comments Procalcitonin (test 0.13 ng/mL <0.07 H code = 4896875943) JAMES (test code = JAMES) INTERPRETATION OF [...] lung abscess/empyema. For further information please refer to:[email or web address] Lab Interpretation Abnormal (test code = 25391-1) [facility]2020-12-11 19:07:00 Test Item Value Reference Range Interpretation Comments POCT GLU (test code = 8315641784) 274 mg/dL 70-110 H Lab Interpretation (test code = Abnormal 44107-5) [facility]MAG[facility]2021-03-01 18:31:00 Test Item Value Reference Range Interpretation Comments MAGNESIUM (test code = 6160998387) 1.9 mg/dL 1.7-2.4 Lab Interpretation (test code = Normal 02745-4) [facility]FERRITIN [id number] 18:31:00 Test Item Value Reference Range Interpretation Comments FERRITIN (test code = 178.0 ng/mL 18.0-464.0 9717333709) JAMES (test code = JAMES) Biotin has been reported to cause a negative bias, interpret results relative to patient's use of biotin. Lab Interpretation (test Normal code = 30126-7) [facility]CT HEAD WO [id number] 14:36:47 No acute intracranial abnormality. Dilated ventricles [...] reviewed this study and agree with the abovereport.[facility]URINALYSIS2021-03-01 14:28:00 Test Item Value Reference Range Interpretation Comments APPEARANCE (test code = Clear Clear 8385948086) COLOR (test code = Yellow Yellow 2641031168) PH (test code = 4.8-8.0 4693061109) SP GRAVITY (test code = 1.003-1.030 3696630561) GLU U QUAL (test code = 500 mg/dL Normal A 1807043292) BLOOD (test code = Negative Negative 9177294340) KETONES (test code = 5 mg/dL Negative A 4065843129) PROTEIN (test code = Negative Negative 2887-8) UROBILIN (test code = Normal Normal 0617358450) BILIRUBIN (test code = Negative Negative 9825591637) NITRITE (test code = Negative Negative 3525731073) LEUK RYAN (test code = Negative Negative 2304507914) RBC/HPF (test code = See_Comment [Autom ated message] 3181717215) The system Helijia generated this result transmit ronan reference range : 0 - 3 HPF. The refe rence range was not u sed to interpret th is result as normal/abnormal . WBC/HPF (test code = See_Comment [Autom ated message] 5254219631) The system Helijia generated this result transmit ronan reference range : 0 - 5 HPF. The refe rence range was not u sed to interpret th is result as normal/abnormal . BACTERIA (test code = Negative Negative 5083661961) MUCOUS (test code = Slight Negative LPF A 7388167084) SQ EPITH (test code = HPF 8526635686) Lab Interpretation (test Abnormal code = 71086-0) [facility] (ID NOW RAPID TESTING)2020-12-11 13:10:00 Test Item Value Reference Range Interpretation Comments SARS-CoV-2 Rapid ID NOW Not Detected Not Detected (test code = 75129-1) JAMES (test code = JAMES) ID NOW COVID-19 Assay is an isothermal nucleic acid amplification test intended for the qualitative detection of nucleic acid from SARS-CoV-2 viral RNA in nasopharyngeal (ELDERLY COMPANION) specimens. It is used under Emergency Use [...] indicated. Lab Interpretation Normal (test code = 68207-8) [facility]. METABOLIC PANEL (67582)2020-12-11 12:29:00 Test Item Value Reference Range Interpretation Comments NA (test code = 136 mmol/L 135-145 5819752892) K (test code = 3.5 mmol/L 3.5-5.0 9339799771) CL (test code = 95 mmol/L 98-108 L 1408078757) CO2 TOTAL (test code = 35 mmol/L 23-31 H 9246187721) AGAP (test code = 2-16 7746692206) BUN (test code = 9 mg/dL 7-23 8467976844) GLUCOSE (test code = 329 mg/dL 70-110 H 0173597446) CREATININE (test code = 0.72 mg/dL 0.60-1.25 1647136808) TOTAL BILI (test code = 0.6 mg/dL 0.1-1.5 5388062816) CALCIUM (test code = 9.0 mg/dL 8.6-10.6 1455503535) T PROTEIN (test code = 6.8 g/dL 6.3-8.2 4929119405) ALBUMIN (test code = 3.8 g/dL 3.5-5.0 3389518525) ALK PHOS (test code = 288 U/L 34-122 H 8191509686) ALTv (test code = 46 U/L 5-50 2-6) AST(SGOT) (test code = 38 U/L 13-40 6225501900) eGFR Calculation mL/min/1.73m2 (Non-) (test code = 5332726275) eGFR Calculation mL/min/1.73m2 () (test code = 8689215489) JAMES (test code = JAMES) Association of [...] tests). Lab Interpretation Abnormal (test code = 92706-5) [facility] DistrictL[facility] Acid Whole Yyxtm2171-60-75 12:23:00 Test Item Value Reference Range Interpretation Comments LACTIC ACID (test code = 2.09 mmol/L 0.50-2.20 6676684267) Lab Interpretation (test code = Normal 12393-7) [facility] DistrictCB WITH [id number] 12:17:00 Test Item Value Reference Range Interpretation [...] RDW-SD (test code = 44.9 fL 38.5-51.6 52444-7) RDW-CV (test code = 15.9 % 12.1-15.4 H 788-0) PLT (test code = See_Comment H [Automated 777-3) message] The sy stem which generated this result transmitted reference range : 150 - 328 10*3/ ?L. The reference r torito was not used to interpret this result as normal/abnormal . MPV (test code = 8.3 fL 9.8-13.0 L 64233-3) NRBC/100 WBC (test See_Comment [Automat ed code = 2653162622) message] The system which generated this result transmitted reference range : 0.0 - 10.0 /100 WBCs. The refer ence range was not u sed to interpret th is result as normal/abnormal . NRBC x10^3 (test code <0.01 See_Comment [Auto mated = 1693930265) message] The s ystem which generated this result transmitted reference range : 10*3/?L. The reference range was not used to interpret this result as normal/abnormal . GRAN MAT (NEUT) % 77.9 % (test code = 770-8) IMM GRAN % (test code 0.50 % = 4237587226) LYMPH % (test code = 12.2 % 736-9) MONO % (test code = 5.2 % 5905-5) EOS % (test code = 3.7 % 713-8) BASO % (test code = 0.5 % 706-2) GRAN MAT x10^3(ANC) 9.57 10*3/uL 1.99-6.95 H (test code = 4840958000) IMM GRAN x10^3 (test 0.06 10*3/uL 0.00-0.06 code = 3366192695) LYMPH x10^3 (test code 1.50 10*3/uL 1.09-3.23 = 731-0) MONO x10^3 (test code 0.64 10*3/uL 0.36-1.02 = 742-7) EOS x10^3 (test code = 0.46 10*3/uL 0.06-0.53 711-2) BASO x10^3 (test code 0.06 10*3/uL 0.01-0.09 = 704-7) Lab Interpretation Abnormal (test code = 60574-1) [facility] DistrictLAB ONLY COVID [id number] 18:43:00COVID DMT InterpretationInterpretation/Recommendations: Molecular NAAT Test Results [...] a nasopharyngeal sample, there is approximately a yuc-oi-oopvs chance that the patient was infected and [...] based upon aggregate data pooled from the [facility] medical record including both current and prior COVID-19 related testing results for the following tests offered at our institution:A. Tests for the Identification of SARS-CoV-2 RNA:SARS-CoV-2 PCR assays including Ragland Aptima, Ragland Fusion, Barrett RealTime, and Iscopia Software Xpert Xpress. SARS-CoV-2 Rapid ID NOW by the ID NOW assay. ? B. Tests for the Identification of SARS-CoV-2 Antibodies: Chemiluminescent immunoassays including Access SARS-CoV-2 IgM (DXI 600), LiftagoS Oyti-KUWH-GrH-2 IgG (Vitros 5600 and Vitros 3600), and Barrett SARS-CoV-2 IgG (ONLINE BANKING SPECIALIST I System). These interpretation comments assume that only the above testing was utilized and that the approved acceptable specimen type(s) were used for a given test. These interpretations are autopopulated into registracija vozila based on computerized algorithms matching an interpretation code number to the patient's set of test results. While a clinical pathologist evaluates the combinations for clinical accuracy, clinical correlation is recommended as it may not take into account very remote prior testing. Furthermore, it does not consider testing a patient may have had outside of the [facility] system. Additionally, it should be noted that the computerized algorithm treats the results for PCR testing and Rapid ID NOW testing (also PCR) synonymously, and thus, refers to both testing methodologies as PCR tests. Given that the sensitivity of [facility]'s Rapid ID NOW testingplatform is analogous [...] panel may be beneficial in this setting. [facility] LABORATORY SERVICESCOVID JbakrzwYRKP-AvH-2 Rapid ID NOW (no units) ? ? Date ? Value ? 08/21/2020 ? Not Detected ? [facility] SERVICESUnGeneral [facility] GLU[facility] (AUTOMATED)2020-08-23 18:25:00 Test Item Value Reference Range Interpretation Comments POCT GLU (test code = 5524031220) 297 mg/dL 70-110 H Lab Interpretation (test code = Abnormal 52218-1) [facility] GLUCOSE (AUTOMATED)2020-08-23 14:25:00 Test Item Value Reference Range Interpretation Comments POCT GLU (test code = 5625481029) 181 mg/dL 70-110 H Lab Interpretation (test code = Abnormal 93935-2) [facility] District[facility] Metabolic Panel (NA, K, CL, CO2, GLUCOSE, BUN, CREATININE, CA)2020-08-23 11:45:00 Test Item Value Reference Range Interpretation Comments NA (test code = 132 mmol/L 135-145 L 0114775773) K (test code = 4.0 mmol/L 3.5-5 6265456453) CL (test code = 96 mmol/L 98-108 L 6123769915) CO2 TOTAL (test code = 33 mmol/L 23-31 H 3690277879) AGAP (test code = 2-16 9241174423) BUN (test code = 9 mg/dL 7-23 9643978350) GLUCOSE (test code = 176 mg/dL 70-110 H 1112577835) CREATININE (test code = 0.66 mg/dL 0.6-1.25 2096462069) CALCIUM (test code = 8.5 mg/dL 8.6-10.6 L 7042161330) eGFR Calculation mL/min/1.73m2 (Non-) (test code = 5556337614) eGFR Calculation mL/min/1.73m2 () (test code = 8040821709) JAMES (test code = JAMES) Association of [...] tests). Lab Interpretation Abnormal (test code = 01782-1) [facility] DistrictMagnesium [id number] 11:45:00 Test Item Value Reference Range Interpretation Comments MAGNESIUM (test code = 6066410250) 2.0 mg/dL 1.7-2.4 Lab Interpretation (test code = Normal 34163-8) [facility] with Jslcidtpsdhq3011-26-14 11:38:00 Test Item Value Reference Range Interpretation [...] RDW-SD (test code = 41.8 fL 38.5-51.6 60591-9) RDW-CV (test code = 14.3 % 12.1-15.4 788-0) PLT (test code = See_Comment H [Automated 777-3) message] The sy stem which generated this result transmitted reference range : 150 - 328 10*3/ ?L. The reference r torito was not used to interpret this result as normal/abnormal . MPV (test code = 8.0 fL 9.8-13 L 89611-6) NRBC/100 WBC (test See_Comment [Automat ed code = 3535503325) message] The system which generated this result transmitted reference range : 0.0 - 10.0 /100 WBCs. The refer ence range was not u sed to interpret th is result as normal/abnormal . NRBC x10^3 (test code <0.01 See_Comment [Auto mated = 0612501208) message] The s ystem which generated this result transmitted reference range : 10*3/?L. The reference range was not used to interpret this result as normal/abnormal . GRAN MAT (NEUT) % 61.5 % (test code = 770-8) IMM GRAN % (test code 2.00 % = 8130444298) LYMPH % (test code = 25.5 % 736-9) MONO % (test code = 6.3 % 5905-5) EOS % (test code = 3.7 % 713-8) BASO % (test code = 1.0 % 706-2) GRAN MAT x10^3(ANC) 5.29 10*3/uL 1.99-6.95 (test code = 4066895719) IMM GRAN x10^3 (test 0.17 10*3/uL 0-0.06 H code = 8182974195) LYMPH x10^3 (test code 2.19 10*3/uL 1.09-3.23 = 731-0) MONO x10^3 (test code 0.54 10*3/uL 0.36-1.02 = 742-7) EOS x10^3 (test code = 0.32 10*3/uL 0.06-0.53 711-2) BASO x10^3 (test code 0.09 10*3/uL 0.01-0.09 = 704-7) Lab Interpretation Abnormal (test code = 37240-4) [facility] GLUCOSE (AUTOMATED)2020-08-23 10:22:00 Test Item Value Reference Range Interpretation Comments POCT GLU (test code = 0277899379) 164 mg/dL 70-110 H Lab Interpretation (test code = Abnormal 32695-3) [facility] GLUCOSE (AUTOMATED)2020-08-23 05:56:00 Test Item Value Reference Range Interpretation Comments POCT GLU (test code = 9287077763) 242 mg/dL 70-110 H Lab Interpretation (test code = Abnormal 28087-6) [facility] GLUCOSE (AUTOMATED)2020-08-23 03:02:00 Test Item Value Reference Range Interpretation Comments POCT GLU (test code = 8985296588) 210 mg/dL 70-110 H Lab Interpretation (test code = Abnormal 30040-3) [facility] GLUCOSE (AUTOMATED)2020-08-22 23:40:00 Test Item Value Reference Range Interpretation Comments POCT GLU (test code = 9072966033) 267 mg/dL 70-110 H Lab Interpretation (test code = Abnormal 18983-4) [facility] GLUCOSE (AUTOMATED)2020-08-22 19:08:00 Test Item Value Reference Range Interpretation Comments POCT GLU (test code = 3467847234) 191 mg/dL 70-110 H Lab Interpretation (test code = Abnormal 25616-5) [facility] GLUCOSE (AUTOMATED)2020-08-22 13:50:00 Test Item Value Reference Range Interpretation Comments POCT GLU (test code = 0943866445) 174 mg/dL 70-110 H Lab Interpretation (test code = Abnormal 40086-5) [facility] DistrictURINE [id number] 12:59:00 Test Item Value Reference Range Interpretation Comments URINE CULTURE (test No aerobic growth (< code = 630-4) 1000 CFU/mL) [facility] with Ogyujhvefzqo9892-88-04 11:28:00 Test Item Value Reference Range Interpretation Comments WBC (test code = See_Comment [Automated 6690-2) message] The sy stem which generated this result transmitted reference range : 4.20 - 10.70 10*3/?L. The reference range was not used to interpret this result as normal/abnormal . RBC (test code = See_Comment L [Automated 979-8) message] The sy stem which generated this [...] RDW-SD (test code = 42.5 fL 38.5-51.6 07143-0) RDW-CV (test code = 14.5 % 12.1-15.4 788-0) PLT (test code = See_Comment H [Automated 777-3) message] The sy stem which generated this result transmitted reference range : 150 - 328 10*3/ ?L. The reference r torito was not used to interpret this result as normal/abnormal . MPV (test code = 8.0 fL 9.8-13 L 57784-4) NRBC/100 WBC (test See_Comment [Automat ed code = 2061547507) message] The system which generated this result transmitted reference range : 0.0 - 10.0 /100 WBCs. The refer ence range was not u sed to interpret th is result as normal/abnormal . NRBC x10^3 (test code <0.01 See_Comment [Auto mated = 6403309078) message] The s ystem which generated this result transmitted reference range : 10*3/?L. The reference range was not used to interpret this result as normal/abnormal . GRAN MAT (NEUT) % 69.1 % (test code = 770-8) IMM GRAN % (test code 2.20 % = 6351670635) LYMPH % (test code = 20.9 % 736-9) MONO % (test code = 5.8 % 5905-5) EOS % (test code = 1.0 % 713-8) BASO % (test code = 1.0 % 706-2) GRAN MAT x10^3(ANC) 6.51 10*3/uL 1.99-6.95 (test code = 0784236511) IMM GRAN x10^3 (test 0.21 10*3/uL 0-0.06 H code = 3256873811) LYMPH x10^3 (test code 1.97 10*3/uL 1.09-3.23 = 731-0) MONO x10^3 (test code 0.55 10*3/uL 0.36-1.02 = 742-7) EOS x10^3 (test code = 0.09 10*3/uL 0.06-0.53 711-2) BASO x10^3 (test code 0.09 10*3/uL 0.01-0.09 = 704-7) BASO STIPPLING (test Present A code = 703-9) BANDS (test code = Increased A 3157673677) TOXIC CHANGES (test Present A code = 803-7) Lab Interpretation Abnormal (test code = 31169-1) [facility] Metabolic Panel (NA, K, CL, CO2, GLUCOSE, BUN, CREATININE, CA)2020-08-22 11:12:00 Test Item Value Reference Range Interpretation Comments NA (test code = 135 mmol/L 135-145 2124911834) K (test code = 3.6 mmol/L 3.5-5 6019290352) CL (test code = 99 mmol/L 98-108 4087716599) CO2 TOTAL (test code = 31 mmol/L 23-31 5798619972) AGAP (test code = 2-16 4030164590) BUN (test code = 9 mg/dL 7-23 2087123157) GLUCOSE (test code = 198 mg/dL 70-110 H 4992335252) CREATININE (test code = 0.72 mg/dL 0.6-1.25 0451602272) CALCIUM (test code = 8.3 mg/dL 8.6-10.6 L 4473256749) eGFR Calculation mL/min/1.73m2 (Non-) (test code = 9994154695) eGFR Calculation mL/min/1.73m2 () (test code = 5968865683) JAMES (test code = JAMES) Association of [...] tests). Lab Interpretation Abnormal (test code = 13671-8) [facility] DistrictMagn[facility] Jjvdq0487-49-25 11:12:00 Test Item Value Reference Range Interpretation Comments MAGNESIUM (test code = 4794345807) 2.0 mg/dL 1.7-2.4 Lab Interpretation (test code = Normal 40398-4) [facility] DistrictLipid Panel (Total Cholesterol, Triglycerides, HDL) - [id number] 11:12:00 Test Item Value Reference Range Interpretation Comments CHOL (test code = 155 mg/dL 120-200 7843980000) HDL (test code = 42 mg/dL >40 6469589804) HDLC RATIO (test code = See_Comment [Au tomated message] 9017649685) The system Helijia generated this result transmit ronan reference range : <=5.0. The refe rence range was not u sed to interpret th is result as normal/abnormal . TRIG (test code = 186 mg/dL 30-170 H 4906382408) LDL CHOL (test code = 76 mg/dL See_Comment [Auto mated message] 61650-6) The system Helijia generated this result transmit ronan reference range : <=160. The refe rence range was not u sed to interpret th is result as normal/abnormal . VLDL (test code = 37 mg/dL 5-60 3770819850) Lab Interpretation (test Abnormal code = 23601-7) [facility] DistrictHEPATIC FUNCTION PANEL (00617) (ALB,T.PRO,BILI T,BU/BC,ALT,AST,ALK PHOS)2020-08-22 11:12:00 Test Item Value Reference Range Interpretation Comments TOTAL BILI (test code = 5962509836) 0.6 mg/dL 0.1-1.1 BILI UNCON (test code = 1434834700) 0.2 mg/dL 0.1-1.1 BILI CONJ (test code = 0535247881) 0.0 mg/dL 0-0.3 T PROTEIN (test code = 5896425786) 6.0 g/dL 6.3-8.2 L ALBUMIN (test code = 9326544018) 2.8 g/dL 3.5-5 L ALK PHOS (test code = 8615689702) 222 U/L 34-122 H ALTv (test code = 1742-6) 27 U/L 5-50 AST(SGOT) (test code = 6939651537) 30 U/L 13-40 Lab Interpretation (test code = Abnormal 35625-5) [facility] GLUCOSE (AUTOMATED)2020-08-22 10:11:00 Test Item Value Reference Range Interpretation Comments POCT GLU (test code = 9786827813) 196 mg/dL 70-110 H Lab Interpretation (test code = Abnormal 03738-6) [facility] GLUCOSE (AUTOMATED)2020-08-22 07:15:00 Test Item Value Reference Range Interpretation Comments POCT GLU (test code = 6251101920) 183 mg/dL 70-110 H Lab Interpretation (test code = Abnormal 91356-7) [facility] GLUCOSE (AUTOMATED)2020-08-22 02:30:00 Test Item Value Reference Range Interpretation Comments POCT GLU (test code = 6636079209) 295 mg/dL 70-110 H Lab Interpretation (test code = Abnormal 25174-9) [facility] GLUCOSE (AUTOMATED)2020-08-21 23:46:00 Test Item Value Reference Range Interpretation Comments POCT GLU (test code = 3877812152) 258 mg/dL 70-110 H Lab Interpretation (test code = Abnormal 87213-1) [facility] DistrictC-REACTIVE [id number] 18:50:00 Test Item Value Reference Range Interpretation Comments CRP (test code = 7375583610) 15.5 mg/dL <0.8 H Lab Interpretation (test code = Abnormal 22438-1) [facility]2020-08-21 18:21:00 Test Item Value Reference Range Interpretation Comments POCT GLU (test code = 0599896078) 297 mg/dL 70-110 H Lab Interpretation (test code = Abnormal 48326-6) [facility] DistrictETHANOL2020-11-09 16:24:00 Test Item Value Reference Range Interpretation Comments ALCOHOL (test code = <10 mg/dL 5620523021) JAMES (test code = Toxic Greater than or JAMES) equal to 80 mg/dL. NOTE: Whole blood values are approximately 10% to 15% lower than serum and plasma. [facility] DistrictGAL/CLC ONLY - URINE DRUG (IMMUNOASSAY) - 4 ER [id number] 15:36:00 Test Item Value Reference Range Interpretation Comments AMPHET (test code = Negative Negative 1851737137) Cocaine Metabolite (test Negative Negative code = 7424670813) OPIATES (test code = Presumptive Positive Negative A 2079629134) THC (test code = Negative Negative 5199091114) JAMES (test code = JAMES) Urine Drug Cutoff Ranges Amphetamine: ? 1,000 ng/mLCocaine: ? 150 ng/mLOpiates: ? 300 ng/mLCannabinoids: ?50 ng/mL The results are to be used only for medical (i.e., treatment) purposes. Unconfirmed screening results must not be used for non-medical purposes (e.g., employment testing, legal testing). Lab Interpretation (test Abnormal code = 96256-9) [facility] ONLY - SYPHILIS [id number] 15:04:00 Test Item Value Reference Range Interpretation Comments Syphilis IgG/IgM (test Non-reactive Non-reactive code = 02252-5) JAMES (test code = JAMES) Non-reactive - No serologic evidence of T. pallidum infection. Cannot exclude incubating or early syphilis. Submit a second specimen in 2-4 weeks if syphilis is clinically suspected. Equivocal - Further testing to follow. Reactive - Further testing to follow. Lab Interpretation (test Normal code = 28478-8) [facility] DistrictUrinalysis2020-11-09 14:52:00 Test Item Value Reference Range Interpretation Comments APPEARANCE (test code = Clear Clear 8534313250) COLOR (test code = Yellow Yellow 1593250001) PH (test code = 4.8-8.0 0052634198) SP GRAVITY (test code = 1.003-1.030 1980456074) GLU U QUAL (test code = 500 mg/dL Normal A 7930565835) BLOOD (test code = Negative Negative 0708454176) KETONES (test code = 20 mg/dL Negative A 6964424378) PROTEIN (test code = Negative Negative 2887-8) UROBILIN (test code = Normal Normal 0913683044) BILIRUBIN (test code = Negative Negative 1640091002) NITRITE (test code = Negative Negative 9976950480) LEUK RYAN (test code = Negative Negative 9713999762) RBC/HPF (test code = <1 See_Comment [Autom ated message] 3773357028) The system Helijia generated this result transmit ronan reference range : 0 - 3 HPF. The refe rence range was not u sed to interpret th is result as normal/abnormal . WBC/HPF (test code = See_Comment [Autom ated message] 5861801506) The system Helijia generated this result transmit ronan reference range : 0 - 5 HPF. The refe rence range was not u sed to interpret th is result as normal/abnormal . BACTERIA (test code = Negative Negative 7248847418) MUCOUS (test code = Slight Negative LPF A 0095501840) Lab Interpretation (test Abnormal code = 56668-6) [facility] DistrictACTIVATED PARTIAL THRMPLAS [id number] 13:45:00 Test Item Value Reference Range Interpretation Comments APTT Patient (test code = See_Comment [ Automated message] 3173-2) The system Helijia generated this result transmitted ref erence range: 26 - 36 Seconds. The re ference range was not u sed to interpret this result as normal/abnor mal. Lab Interpretation (test Normal code = 44640-3) [facility]2020-08-21 13:45:00 Test Item Value Reference Range Interpretation Comments POCT GLU (test code = 8844023986) 246 mg/dL 70-110 H Lab Interpretation (test code = Abnormal 98534-0) [facility] DistrictHIV 1/2 AG-AB WITH [id number] 12:32:00 Test Item Value Reference Range Interpretation Comments HIV Negative Negative Semi-quantitative (test code = 74384-1) JAMES (test code = Non-reactive for HIV-1 JAMES) antigen and HIV-1/HIV-2 antibodies. ?No laboratory evidence of HIV infection. ?Repeat in 2-4 weeks if acute HIV infection is suspected. [facility] WITH [id number] 12:18:00 Test Item Value Reference Range Interpretation Comments WBC (test code = See_Comment [Automated 4190-2) message] The sy stem which generated this [...] RDW-SD (test code = 44.4 fL 38.5-51.6 14268-0) RDW-CV (test code = 14.5 % 12.1-15.4 788-0) PLT (test code = See_Comment H [Automated 777-3) message] The sy stem which generated this result transmitted reference range : 150 - 328 10*3/ ?L. The reference r torito was not used to interpret this result as normal/abnormal . MPV (test code = 8.5 fL 9.8-13 L 29216-2) NRBC/100 WBC (test See_Comment [Automat ed code = 0489177240) message] The system which generated this result transmitted reference range : 0.0 - 10.0 /100 WBCs. The refer ence range was not u sed to interpret th is result as normal/abnormal . NRBC x10^3 (test code <0.01 See_Comment [Auto mated = [id number]) message] The s ystem which generated this result transmitted reference range : 10*3/?L. The reference range was not used to interpret this result as normal/abnormal . GRAN MAT (NEUT) % 90.4 % (test code = 770-8) IMM GRAN % (test code 1.30 % = 5874161993) LYMPH % (test code = 7.1 % 736-9) MONO % (test code = 0.5 % 5905-5) EOS % (test code = 0.1 % 713-8) BASO % (test code = 0.6 % 706-2) GRAN MAT x10^3(ANC) 7.74 10*3/uL 1.99-6.95 H (test code = 7068204464) IMM GRAN x10^3 (test 0.11 10*3/uL 0-0.06 H code = 6793146450) LYMPH x10^3 (test code 0.61 10*3/uL 1.09-3.23 L = 731-0) MONO x10^3 (test code 0.04 10*3/uL 0.36-1.02 L = 742-7) EOS x10^3 (test code = <0.03 0.06-0.53 L 711-2) BASO x10^3 (test code 0.05 10*3/uL 0.01-0.09 = 704-7) POLYCHROMASIA (test 2+ See_Comment [Automa ronan code = 50514-8) message] The system which generated this result transmitted reference range : 2+. The referen ce range was not u sed to interpret th is result as normal/abnormal . BANDS (test code = Increased A 1104357476) Lab Interpretation Abnormal (test code = 13354-7) [facility]2020-[facility]-09 11:48:00 Test Item Value Reference Range Interpretation Comments Procalcitonin (test 0.36 ng/mL <0.07 H code = 0297065400) JAMES (test code = JAMES) INTERPRETATION OF [...] lung abscess/empyema. For further information please refer to:[email or web address] Lab Interpretation Abnormal (test code = 85459-9) [facility] DistrictLANCATE [id number] 10:53:00 Test Item Value Reference Range Interpretation Comments LDH (test code = 1701769489) 351 U/L 300-600 Lab Interpretation (test code = Normal 91505-6) [facility] DistrictSEDIMENTATION [id number] 10:07:00 Test Item Value Reference Range Interpretation Comments ESR (test code = See_Comment H [Automated message] 7268285736) The system [employer] generated this result transmitted ref erence range: 0 - 10 m m/HR. The reference r torito was not used to interpret this result as normal/abnor mal. Lab Interpretation (test Abnormal code = 32248-4) [facility] GLUCOSE (AUTOMATED)2020-08-21 09:45:00 Test Item Value Reference Range Interpretation Comments POCT GLU (test code = 7582501544) 287 mg/dL 70-110 H Lab Interpretation (test code = Abnormal 05810-6) [facility] DistrictGlycosylated Hemoglobin (A1C)2020-08-21 09:29:00 Test Item Value Reference Range Interpretation Comments HGB A1C (test code = 4548-4) 9.8 % 4-6 H Lab Interpretation (test code = Abnormal 09400-0) [facility]COVID[facility] (ID NOW RAPID TESTING)2020-08-21 09:13:00 Test Item Value Reference Range Interpretation Comments SARS-CoV-2 Rapid ID NOW Not Detected Not Detected (test code = 74318-4) JAMES (test code = JAMES) ID NOW COVID-19 Assay is an isothermal nucleic acid amplification test intended for the qualitative detection of nucleic acid from SARS-CoV-2 viral RNA in nasopharyngeal (ELDERLY COMPANION) specimens. It is used under Emergency Use [...] indicated. Lab Interpretation Normal (test code = 35065-3) [facility] DistrictProthrombin Time / [id number] 08:59:00 Test Item Value Reference Range Interpretation Comments PROTIME PATIENT (test See_Comment H [Auto mated message] code = 5964-2) The system [employer] generated this result transmitted ref erence range: 10.1 - 1 2.6 Seconds. The reference range was not used to int erpret this result as normal/abnormal . INR (test code = 6301-6) Nor mal INR <1.1; Warfarin Therap eutic range 2.0 to 3. 0 or 2.5 to 3.5, dep ending upon the indica tions. Lab Interpretation (test Abnormal code = 98930-9) [facility]taPTT2020-11-09 08:59:00 Test Item Value Reference Range Interpretation Comments APTT Patient (test code = See_Comment [ Automated message] 3173-2) The system [employer] generated this result transmitted ref erence range: 26 - 36 Seconds. The re ference range was not u sed to interpret this result as normal/abnor mal. Lab Interpretation (test Normal code = 06934-1) [facility] DistrictBASI METABOLIC PANEL (NA, K, CL, CO2, GLUCOSE, BUN, CREATININE, CA)2020-08-21 08:52:00 Test Item Value Reference Range Interpretation Comments NA (test code = 136 mmol/L 135-145 1348046442) K (test code = 4.3 mmol/L 3.5-5 7058380208) CL (test code = 104 mmol/L 98-108 3809326384) CO2 TOTAL (test code = 24 mmol/L 23-31 9783336064) AGAP (test code = 2-16 6198003034) BUN (test code = 8 mg/dL 7-23 4795672154) GLUCOSE (test code = 308 mg/dL 70-110 H 8145956574) CREATININE (test code = 0.72 mg/dL 0.6-1.25 8703265304) CALCIUM (test code = 7.8 mg/dL 8.6-10.6 L 0038823632) eGFR Calculation mL/min/1.73m2 (Non-) (test code = 8543314276) eGFR Calculation mL/min/1.73m2 () (test code = 3674919981) JAMES (test code = JAMES) Association of [...] tests). Lab Interpretation Abnormal (test code = 51222-8) [facility] DistrictHEPATIC FUNCTION PANEL (11959) (ALB,T.PRO,BILI T,BU/BC,ALT,AST,ALK PHOS)2020-08-21 08:52:00 Test Item Value Reference Range Interpretation Comments TOTAL BILI (test code = 7735500884) 0.8 mg/dL 0.1-1.1 BILI UNCON (test code = 6430783140) 0.3 mg/dL 0.1-1.1 BILI CONJ (test code = 3317632261) 0.0 mg/dL 0-0.3 T PROTEIN (test code = 0818289563) 5.7 g/dL 6.3-8.2 L ALBUMIN (test code = 8644524773) 2.7 g/dL 3.5-5 L ALK PHOS (test code = 5678631896) 245 U/L 34-122 H ALTv (test code = 1742-6) 37 U/L 5-50 AST(SGOT) (test code = 3056794181) 43 U/L 13-40 H Lab Interpretation (test code = Abnormal 90724-6) [facility]
--- NOTE | 2021-11-21 00:36 | EDPHYS ---
Physician Documentation [facility] Name: Kiel Ngo Age: 71 yrs Sex: Male : 1950 Arrival Date: 11/21/2021 Time: 00:27 Bed 7 Private MD: ED Physician Michael Bosch HPI: 11/21 00:28 This 71 yrs old Male presents to ER via Unassigned with complaints of groin strain. rn 00:28 The patient presents with an injury, pain, that is chronic. The complaints affect the rn right inner thigh. Onset: The symptoms/episode began/occurred 1 month(s) ago. Modifying factors: The symptoms are alleviated by remaining still, the symptoms are aggravated by movement. Associated signs and symptoms: Pertinent negatives fever, rash, swelling, warmth, weakness. Severity of symptoms: At their worst the symptoms were mild, in the emergency department the symptoms are unchanged. The patient has experienced similar episodes in the past. The patient has been recently seen by a physician:. Pt reports approx 1 month ago was transferring into car for pain management appointment when felt a groin strain/muscle strain of right inner thigh. Reports has had pain since then, thought it would get better, but didn't. Sees pain management, has run out of his pain medication early once again, and came in tonight asking for dilaudid for his groin strain and chronic pain, as well as ativan for "his nerves". Denies more recent injury or fall. No bony tenderness or pain. . Historical: - Allergies: 00:39 Demerol; al4 00:39 metformin; al4 00:39 Morphine; al4 - PMHx: 00:39 chronic back pain; neuropathy; al4 - PSHx: 00:39 back sx; al4 - Immunization history:: Adult Immunizations up to date, Client reports having NOT received the Covid vaccine. Pneumococcal vaccine is not up to date, Flu vaccine is not up to date. - Social history:: Smoking status: Patient denies any tobacco usage or history of. - Family history:: not pertinent. - Hospitalizations: : No recent hospitalization is reported. ROS: 00:28 Constitutional: Negative for fever, chills, and weight loss, Neck: Negative for injury, rn pain, and swelling, Cardiovascular: Negative for chest pain, palpitations, and edema, Respiratory: Negative for shortness of breath, cough, wheezing, and pleuritic chest pain, Abdomen/GI: Negative for abdominal pain, nausea, vomiting, diarrhea, and constipation, : Negative for injury, bleeding, discharge, and swelling, MS/Extremity: + right inner thigh pain Skin: Negative for injury, rash, and discoloration, Neuro: Negative for headache, weakness, numbness, tingling, and seizure. Exam: 00:28 Constitutional: This is a well developed, well nourished patient who is awake, alert, rn and in no acute distress. Cardiovascular: Regular rate and rhythm. No pulse deficits. Abdomen/GI: soft, non-tender, no masses, no inguinal or femoral hernia noted, no masses Male : Normal genitalia, no testicular tenderness or swelling Skin: Warm, dry, no cellulitis MS/ Extremity: Pulses equal, no cyanosis. Neuro: Awake and alert, GCS 15 Vital Signs: 00:28 BP 155 / 78; Pulse 98; Resp 18; Temp 97.4(O); Pulse Ox 99% on R/A; oe 00:52 Weight 88.45 kg; Height 5 ft. 11 in. (180.34 cm); al4 00:52 Body Mass Index 27.20 (88.45 kg, 180.34 cm) al4 MDM: 00:27 Patient medically screened. rn 00:28 Differential diagnosis: chronic pain, MSK pain, strain. Data reviewed: vital signs, rn nurses notes, old medical records, and as a result, I will discharge patient. Counseling: I had a detailed discussion with the patient and/or guardian regarding: the historical points, exam findings, and any diagnostic results supporting the discharge/admit diagnosis, the need for outpatient follow up, to return to the emergency department if symptoms worsen or persist or if there are any questions or concerns that arise at home. Response to treatment: There is no appreciated change of the patient's symptoms at this time, and as a result, I will discharge patient. Special discussion: I discussed with the patient/guardian in detail that at this point there is no indication for admission to the hospital. It is understood, however, that if the symptoms persist or worsen the patient needs to return immediately for re-evaluation. Based on the history and exam findings, there is no indication for further emergent testing or inpatient evaluation. I discussed with the patient/guardian the need to see the house painter for further evaluation of the symptoms. ED course: Pt presents with 1 month old strain of RLE and chronic pain. Had long discussion with him as to why dilaudid and/or ativan is not indicated or recommended at this time or for this type of injury. Also spoke with him regarding importance of pain management and can't be finishing prescriptions early. Stable vitals. Pt not happy with not getting what he wants but states he understands. . Administered Medications: No medications were administered Disposition Summary: 11/21/21 00:35 Discharge Ordered Location: Home rn Problem: an ongoing problem rn Symptoms: are unchanged rn Condition: Stable rn Diagnosis - Strain of other specified muscles, fascia and tendons at thigh level, right thigh rn - Chronic pain, not elsewhere classified rn Followup: rn - With: Madhu Francois DO - When: As needed - Reason: Recheck today's complaints, Re-evaluation by your physician Discharge Instructions: - Discharge Summary Sheet rn - Chronic Pain, Adult rn - Muscle Strain rn Forms: - Medication Reconciliation Form rn - Thank You Letter 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
--- NOTE | 2021-11-21 00:36 | ER ---
Nurse's Notes [facility] Name: Kiel Ngo Age: 71 yrs Sex: Male : 1950 Arrival Date: 11/21/2021 Time: 00:27 Bed 7 Private MD: Diagnosis: Strain of other specified muscles, fascia and tendons at thigh level, right thigh;Chronic pain, not elsewhere classified Presentation: 11/21 00:37 Chief complaint: Patient states: "I have pain in my right groin". Coronavirus screen: al4 Vaccine status: Patient reports being unvaccinated. Ebola Screen: No symptoms or risks identified at this time. Initial Sepsis Screen: Does the patient meet any 2 criteria? No. Patient's initial sepsis screen is negative. Does the patient have a suspected source of infection? No. Patient's initial sepsis screen is negative. Risk Assessment: Do you want to hurt yourself or someone else? Patient reports no desire to harm self or others. Onset of symptoms was November 07, 2021. 00:37 Method Of Arrival: EMS al4 00:37 Acuity: JOZEF 4 al4 Triage Assessment: 00:39 General: Appears in no apparent distress. uncomfortable, Behavior is calm, cooperative, al4 appropriate for age, patient is complaining of pain 10/10 in his right groin area that has been bothering him for three weeks. Pain: Complains of pain in right inner thigh Pain currently is 10 out of 10 on a pain scale. Pain began "about 3 weeks ago". EENT: No signs and/or symptoms were reported regarding the EENT system. Neuro: Level of Consciousness is awake, alert, obeys commands, Oriented to person, place, time, situation. Cardiovascular: Capillary refill < 3 seconds Patient's skin is warm and dry. Respiratory: Airway is patent Respiratory effort is even, unlabored, Respiratory pattern is regular, symmetrical. GI: No signs and/or symptoms were reported involving the gastrointestinal system. : No signs and/or symptoms were reported regarding the genitourinary system. Derm: No signs and/or symptoms reported regarding the dermatologic system. Musculoskeletal: Capillary refill < 3 seconds. Historical: - Allergies: 00:39 Demerol; al4 00:39 metformin; al4 00:39 Morphine; al4 - PMHx: 00:39 chronic back pain; neuropathy; al4 - PSHx: 00:39 back sx; al4 - Immunization history:: Adult Immunizations up to date, Client reports having NOT received the Covid vaccine. Pneumococcal vaccine is not up to date, Flu vaccine is not up to date. - Social history:: Smoking status: Patient denies any tobacco usage or history of. - Family history:: not pertinent. - Hospitalizations: : No recent hospitalization is reported. Screenin:43 Abuse screen: Denies threats or abuse. Nutritional screening: No deficits noted. al4 Tuberculosis screening: No symptoms or risk factors identified. Fall Risk No fall in past 12 months (0 pts). Secondary diagnosis (15 points) impaired mobility, No IV (0 pts). Ambulatory Aid- None/Bed Rest/Nurse Assist (0 pts). Gait- Weak (10 pts.). Mental Status- Oriented to own ability (0 pts). Total Chow Fall Scale indicates Low Risk Score (25-44 pts). Fall prevention measures have been instituted. Side Rails Up X 2 Placed close to Nursing Station Frequent Obs/Assesments occuring As available Patient and Family Educated on Fall Prevention Program and strategies. Assessment: 00:42 General: see triage assessment. al4 00:59 Reassessment: No changes from previously documented assessment. Patient is alert, tk1 oriented x 3, equal unlabored respirations, skin warm/dry/pink. D/C per MD order. Discharge instructions given to patient. Verbalized understanding. EMS notified of transportation need. Patient remains in ED RM 07 awaiting transportation. Vital Signs: 00:28 BP 155 / 78; Pulse 98; Resp 18; Temp 97.4(O); Pulse Ox 99% on R/A; oe 00:52 Weight 88.45 kg; Height 5 ft. 11 in. (180.34 cm); al4 00:52 Body Mass Index 27.20 (88.45 kg, 180.34 cm) al4 ED Course: 00:27 Patient arrived in ED. rn 00:27 Michael Bosch MD is Attending Physician. rn 00:34 Madhu Francois DO is Referral Physician. rn 00:39 Triage completed. al4 00:41 Fatoumata Monaco is Primary Nurse. tk1 00:42 Arm band placed on. al4 00:43 Patient has correct armband on for positive identification. al4 00:43 No provider procedures requiring assistance completed. Patient did not have IV access al4 during this emergency room visit. Administered Medications: No medications were administered Outcome: 00:35 Discharge ordered by . rn 01:47 Discharged to home tk1 01:47 Condition: stable 01:47 Discharge instructions given to patient, Instructed on discharge instructions, follow up and referral plans. Demonstrated understanding of instructions, follow-up care. 01:47 Patient left the ED. tk1 Signatures: Michael Bosch MD MD rn Espinosa, [place] oe Ledbetter, Alexis al4 Fatoumata Monaco tk1 Corrections: (The following items were deleted from the chart) 00:44 00:43 Fall Risk None identified. al4 al4
[2021-11-21 08:54] VITALS: BP 155/78; TEMP 97.4; O2SAT 99
== END 2021-11-21 01:47 | disposition home or self-care (01) ==
LOC: ER 00:17
DX: S76.811A Strain of other specified muscles, fascia and tendons at thigh level, right thigh, initial encounter (principal); G89.29 Other chronic pain; Z88.5 Allergy status to narcotic agent; Z88.8 Allergy status to other drugs, medicaments and biological substances
CPT/HCPCS: 99283

== ENCOUNTER 2021-12-03 07:59 | Observation (INO) | payer OTHER ==
--- OUTSIDE RECORDS SUMMARY | 2021-12-03 08:08 | XMS REPORT | Continuity of Care Document ---
:1950 Author Organization [facility] t Address [address] [place] [address] Dr. Motley [address] [place] [id number] Care Team Providers Name Role Phone Edy [...] Expiration Date S ource MEDICARE PART A [id number] 2007 \\T\\ B 00:00:00 [employer] INDEMNITY [id number] 2016 00:00:00 MEDICARE PART A [id number] 2014 \\T\\ B - MEDICARE 00:00:00 INDEMNITY/TRADITIO [id number] NAL CHOICE - [employer] 00:00:00 Problems Condition [...] ents Source Name Type Date Date Clinician Taney Propensi Active Rash 2020- Univers ty to [...] vers NE INGREDI 3-16 ity of 00:00: [place] 00 [facility] Branch GLIMEPIR DRUG Active Hives Univers EFREN INGREDI 3-16 ity of 00:00: [place] 00 Medical Branch METFORMI DRUG Active ITCHING Univers N INGREDI 3-16 ity of 00:00: [place] 00 Medical Branch Social History Social Habit Start Date Stop Date Quantity Comments Source Exposure to Not sure University of SARS-CoV-2 [facility] (event) Branch History of Chews Tobacco University of tobacco use [facility] History TNOH 2020-11-17 2020-11-17 5 University o f Financial 00:00:00 00:00:00 [facility] History [facility] Food 2020-11-17 2020-11-17 1 Univers ity of Worry 00:00:00 00:00:00 [facility] History [facility] Food 2020-11-17 2020-11-17 1 Univers ity of Scarcity 00:00:00 00:00:00 [facility] History [facility] 2020-11-17 2020-11-17 1 University o f Transport Med 00:00:00 00:00:00 [place] Medic al Branch History [facility] 2020-11-17 2020-11-17 1 University o f Transport Non-Med 00:00:00 00:00:00 [facility] edical Branch Education 2020-11-16 2020-11-16 21 [place] of 00:00:00 00:00:00 [facility] Alcohol intake 2020-11-16 2020-11-16 Ex-drinker [place] of 00:00:00 00:00:00 (finding) [facility] Tobacco use and 2020-08-21 2020-08-21 Former user Universi ty of exposure 00:00:00 00:00:00 [facility] Tobacco Comment 2020-08-21 2020-08-21 quit 10 years Univer sity of 00:00:00 00:00:00 ago, started in [place] Med ical 2nd year of Branch college (~40 years) Alcohol Comment 2020-08-21 2020-08-21 Used to have 2-3 Uni versity of 00:00:00 00:00:00 six-packs of [place] Medica l beer daily x 20 Branch years, quit 2005 History [facility] 2020-08-21 2020-08-21 99 University o f Alcohol Frequency 00:00:00 00:00:00 [place] M edical Branch History SDAR 2020-08-21 2020-08-21 99 [place] o f Alcohol Std 00:00:00 00:00:00 [place] Medical Drinks Branch History SDAR 2020-08-21 2020-08-21 99 University o f Alcohol Binge 00:00:00 00:00:00 [place] Medic al Branch Sex [birth year] Universit y of 00:00:00 00:00:00 [facility] Smoking Status Start Date Stop Date Source Never smoker [facility] Medications Ordered Filled Start Stop Current [...] 0845, Until Discontinu ed, Routine amLODIPine Yes [id number] 10mg Take 1 Univers 10 mg 3-07 tablet by ity of tablet 00:00: mouth [place] 00 daily. Medical Branch clotrimazol Yes [id number] Apply to Univers e 1 % 3-07 face/ears, ity of topical 00:00: armpits, [place] cream 00 pannus and Medical back/any Branch other rash twice a day fluocinonid 0 Yes [id number] Apply to Univers e 0.05 % 3-07 scalp ity of solution 00:00: twice a [place] 00 day Medical Branch triamcinolo 0 Yes [id number] Apply to Univers ne 3-07 back, ity of acetonide 00:00: armpits [place] 0.1 % cream 00 and other Med ical affected Branch areas twice daily, please mix with clotrimazo le hydrOXYzine 0 Yes [id number] 10mg Take 1 Univers 10 mg 3-07 tablet by ity of tablet 00:00: mouth 2 (two) Medical times Branch daily. amLODIPine 2020-0 Yes [id number] 10mg Take 1 Univers 10 mg 3-07 tablet by ity of tablet 00:00: mouth 00 daily. Medical Branch clotrimazol 2020-0 Yes [id number] Apply to Univers e 1 % 3-07 face/ears, ity of topical 00:00: armpits, [place] cream 00 pannus and Medical back/any Branch other rash twice a day fluocinonid 0 Yes [id number] Apply to Univers e 0.05 % 3-07 scalp ity of solution 00:00: twice a day Medical Branch triamcinolo 0 Yes [id number] Apply to Univers ne 3-07 back, ity of acetonide 00:00: armpits [place] 0.1 % cream 00 and other Med ical affected Branch areas twice daily, please mix with clotrimazo le hydrOXYzine 0 Yes [id number] 10mg Take 1 Univers 10 mg 3-07 tablet by ity of tablet 00:00: mouth 2 (two) Medical times Branch daily. amLODIPine Yes [id number] 10mg Take 1 Univers 10 mg 3-07 tablet by ity of tablet 00:00: mouth 00 daily. Medical Branch clotrimazol 0 Yes [id number] Apply to Univers e 1 % 3-07 face/ears, ity of topical 00:00: armpits, [place] cream 00 pannus and Medical back/any Branch other rash twice a day fluocinonid 2020-0 Yes [id number] Apply to Univers e 0.05 % 3-07 scalp ity of solution 00:00: twice a [place] 00 day Medical Branch triamcinolo 2020-0 Yes [id number] Apply to Univers ne 3-07 back, ity of acetonide 00:00: armpits [place] 0.1 % cream 00 and other Med ical affected Branch areas twice daily, please mix with clotrimazo le hydrOXYzine Yes [id number] 10mg Take 1 Univers 10 mg 3-07 tablet by ity of tablet 00:00: mouth 2 [place] 00 (two) Medical times Branch daily. amLODIPine Yes [id number] 10mg Take 1 Univers 10 mg 3-07 tablet by ity of tablet 00:00: mouth [place] 00 daily. Medical Branch clotrimazol Yes [id number] Apply to Univers e 1 % 3-07 face/ears, ity of topical 00:00: armpits, [place] cream 00 pannus and Medical back/any Branch other rash twice a day fluocinonid Yes [id number] Apply to Univers e 0.05 % 307 scalp ity of solution 00:00: twice a [place] 00 day Medical Branch triamcinolo Yes [id number] Apply to Univers ne 3-07 back, ity of acetonide 00:00: armpits [place] 0.1 % cream 00 and other Med ical affected Branch areas twice daily, please mix with clotrimazo le hydrOXYzine Yes [id number] 10mg Take 1 Univers 10 mg 3-07 tablet by ity of tablet 00:00: mouth 2 [place] 00 (two) Medical times Branch daily. cephALEXin 2020-2020- No [id number] 500mg Take 1 Univers 500 mg 3-04 14-11 capsule by ity of capsule 00:00: 05:59 mouth [place] 00 :00 every 6 Medical (six) Branch hours for 3 days. cephALEXin 2020-0 2020- No [id number] 500mg Take 1 Univers 500 mg 3-04 14-11 capsule by ity of capsule 00:00: 05:59 mouth [place] 00 :00 every 6 Medical (six) Branch hours for 3 days. hydrOXYzine 2020-2020- No [id number] 10mg Take 1 Univers 10 mg 3- 03-07 tablet by ity of tablet 00:00: 00:00 mouth 2 [place] 00 :00 (two) Medical times Branch daily. morpHINE Yes 4mg 4 mg, Slow Uni vers injection 4 - IV Push, ity of mg 22:40: Q6HPRN, [place] 02 Starting Medical 12/16/20 Branch at 1640, [...] :00 Piggyback, [facility] ONCE, 1 Branch dose, Fri12/15/20 at 1000, STAT HYDROmorpho Yes 4mg 4 mg, Unive ne 12-15 Oral, BID, ity of (DILAUDID) 15:30: First dose [place] tablet 4 mg 00 (after Medica l last Branch modificati on) on Fri12/15/20 at 0930, Until Discontinu ed, Routine amLODIPine 2020- No [id number] 10mg Take 1 Univers 10 mg 12-15 tablet by ity of tablet 00:00: 00:00 mouth [place] 00 :00 daily. Medical Branch HYDROmorpho No 1mg 1 mg, Univ ers ne 12-14 Oral, ity of (DILAUDID) 17:35: 15:18 Q6HPRN, [place] tablet 1 mg 30 :06 Starting Medi [facility] 12/14/20 Branch at 1135, Until Fri12/15/20 at 0918, Routine, Pain (scale 7-10) hydrOXYzine Yes 10mg 10 mg, [facility] ers (ATARAX) 12-14 Oral, BID, ity o f tablet 10 17:30: First dose [place] mg 00 on [facility] 12/14/20 at Branch 1130, Until Discontinu ed, Routine lisinopriL Yes 5mg 5 mg, Univer s (PRINIVIL,Z 12-14 Oral, ity of ESTRIL) 17:30: DAILY, [place] tablet 5 mg 00 First dose Me dical on [facility] 12/14/20 at 1130, Until Discontinu ed, Routine triamcinolo 2020- No [id number] Apply to [facility] 12-14 back, ity of acetonide 00:00: 00:00 armpits [place] 0.1 % cream 00 :00 and other Med ical affected Branch areas twice daily, please mix with clotrimazo le clotrimazol 2020- No [id number] Apply to Univers e 1 % 12-14 face/ears, ity of topical 00:00: 00:00 armpits, [place] cream 00 :00 pannus and Medical back/any Branch other rash twice a day fluocinonid 2020- No [id number] Apply to Univers e 0.05 % 12-14 scalp ity of solution 00:00: 00:00 twice a [place] 00 :00 day Medical Branch hydrOXYzine 2020- No [id number] 10mg Take 1 Univers 10 mg 12-14 [...] IV Push, ity of (PF)) 10:07: Q6HPRN, [place] injection 4 28 Starting Medi jose c [...] 1 [place] mg 00 :00 dose, [facility] 12/12/20 at Branch 2145, Routine insulin Yes 15U 15 Units, Univ rs glargine 12-12 Subcutaneo ity o f (LANTUS 15:00: us, DAILY, [place] U-100) 00 First dose Medical injection on [facility] 15 Units 12/12/20 at 0900, Until Discontinu ed hydrOXYzine 2020- No 10mg 10 mg, Uni vers (ATARAX) 12-12 03-02 Oral, ity of tablet 10 08:15: 07:33 ONCE, 1 [place] mg 00 :00 dose, [facility] 12/12/20 at Branch 0215, Routine mirtazapine Yes 7.5mg 7.5 mg, Un toi (REMERON) 3-02 Oral, QHS, ity of tablet 7.5 03:00: First dose [place] mg 00 on [facility] 12/11/20 at Branch 2100, Until Discontinu ed, Routine venlafaxine Yes 300mg 300 mg, Un toi XR (EFFEXOR 3-02 Oral, QHS, it y of XR) 24 hr 03:00: First dose [place] capsule [address] [facility] Medica l mg 12/11/20 at Branch 2100, Until Discontinu ed, Routine fluocinonid Yes Topical, Un toi e (LIDEX) 3 BID, First ity of 0.05 % 02:00: dose on [place] solution 00 Fri12/11/20 Medic al at 2000, Branch Until Discontinu ed, Routine acetaminoph 2020- No 1{tbl} 1 tablet, Univers en-codeine 12-11 03-05 Oral, ity of (TYLENOL 23:23: 13:49 Q6HPRN, [place] #3) 300-30 43 :08 Starting Medic al mg tablet 1 Fri12/11/20 Br anch tablet at 1723, Until Fri12/15/20 at 0749, Routine, Pain (scale 4-6) enoxaparin Yes 40mg 40 mg, Unive rs (LOVENOX) 12-11 Subcutaneo ity of injection 23:00: us, DAILY, [place] 40 mg 00 First dose Medical on Fri [place] 12/11/20 at 1700, Until Discontinu ed, Routine [...] ed, Routine insulin Yes 5U 5 Units, [facility] s lispro 12-11 Subcutaneo ity of (human) 18:00: us, TID [place] (HumaLOG 00 MEALS, Medical U-100) First dose Branch injection [address] [facility] Units 12/11/20 at 1200, Until Discontinu ed Polyethylen Yes 17g 17 g, [facility] rs e Glycol 12-11 Oral, ity of 3350 17:47: [id number], [place] (MIRALAX) 05 Starting Medica l powder 17 g 12/11/20 Br anch at 1147, Until Discontinu ed, Routine, Constipati on acetaminoph Yes 650mg 650 mg, Un toi en 12-11 Oral, ity of (TYLENOL) 16:51: Q6HPRN, [place] tablet 650 28 Starting Medic al mg [...]
Duration of therapy: 72 hours sennosides- Yes [id number] 1{tbl} Take 1 [facility] docusate 2-09 tablet by ity of sodium 00:00: mouth 2 [place] 8.6-50 mg 00 (two) Medical per tablet times Branch daily. hydrocortis Yes [id number] Apply to [facility] one 2.5 % 11-21 affected ity of cream 00:00: area(s) 2 [place] 00 (two) Medical times Branch daily. blood sugar Yes [id number] Use to [facility] diagnostic 2 check ity of (FREESTYLE 00:00: blood [place] LITE 00 glucose Medical STRIPS) 4-5 times Branch strip daily. Polyethylen Yes [id number] 17g Take 1 Univers e Glycol 2-09 Packet by ity of 3350 17 00:00: mouth [place] gram powder 00 every 24 Medi jose c (twenty-fo Branch ur) hours as needed for Constipati on. sennosides- Yes [id number] 1{tbl} Take 1 Univers docusate 2-09 tablet by ity of sodium 00:00: mouth 2 [place] 8.6-50 mg 00 (two) Medical per tablet times Branch daily. hydrocortis 2020-0 Yes [id number] Apply to Univers one 2.5 % 2-09 affected ity of cream 00:00: area(s) 2 [place] 00 (two) Medical times Branch daily. blood sugar 2020-0 Yes [id number] Use to Univers diagnostic 11-21 check ity of (FREESTYLE 00:00: blood [place] LITE 00 glucose Medical STRIPS) 4-5 times Branch strip daily. Polyethylen 2020-0 Yes [id number] 17g Take 1 Univers e Glycol 2-09 Packet by ity of 3350 17 00:00: mouth [place] gram powder 00 every 24 Medi jose c (twenty-fo Branch ur) hours as needed for Constipati on. sennosides- 2020-0 Yes [id number] 1{tbl} Take 1 Univers docusate 2-09 tablet by ity of sodium 00:00: mouth 2 [place] 8.6-50 mg 00 (two) Medical per tablet times Branch daily. hydrocortis 2020-0 Yes [id number] Apply to Univers one 2.5 % 2-09 affected ity of cream 00:00: area(s) 2 [place] 00 (two) Medical times Branch daily. blood sugar 2020-0 Yes [id number] Use to [facility] diagnostic 11-21 check ity of (FREESTYLE 00:00: blood [place] LITE 00 glucose Medical STRIPS) 4-5 times Branch strip daily. Polyethylen 2020-0 Yes [id number] 17g Take 1 Univers e Glycol 2-09 Packet by ity of 3350 17 00:00: mouth [place] gram powder 00 every 24 Medi jose c (twenty-fo Branch ur) hours as needed for Constipati on. sennosides- 2020-0 Yes [id number] 1{tbl} Take 1 Univers docusate 2-09 tablet by ity of sodium 00:00: mouth 2 [place] 8.6-50 mg 00 (two) Medical per tablet times Branch daily. hydrocortis 2020-0 Yes [id number] Apply to Univers one 2.5 % 2-09 affected ity of cream 00:00: area(s) 2 [place] 00 (two) Medical times Branch daily. blood sugar Yes [id number] Use to [facility] diagnostic 11-21 check ity of (FREESTYLE 00:00: blood [place] LITE 00 glucose Medical STRIPS) 4-5 times Branch strip daily. Polyethylen Yes [id number] 17g Take 1 Univers e Glycol 11-21 Packet by ity of 3350 17 00:00: mouth [place] gram powder 00 every 24 Medi jose c (twenty-fo Branch ur) hours as needed for Constipati on. Insulin 2020- No [id number] 15U inject 15 Univers Glargine 11-21 Units ity of (LANTUS 00:00: 05:59 under the [place] SOLOSTAR 00 :00 skin every Medic al U-100 morning Branch INSULIN) for 30 100 unit/mL days. (3 mL) injection venlafaxine 2020- No [id number] 150mg Take 1 Univers XR 150 mg 11-21 capsule by ity of 24 hr 00:00: 05:59 mouth 3 [place] capsule 00 :00 (three) Medical times Branch daily for 30 days. Insulin 2020- No [id number] 15U inject 15 Univers Glargine 11-2112 Units ity of (LANTUS 00:00: 05:59 under the [place] SOLOSTAR 00 :00 skin every Medic al U-100 morning Branch INSULIN) for 30 100 unit/mL days. (3 mL) injection venlafaxine 2020- No [id number] 150mg Take 1 Univers XR 150 mg 11-21 capsule by ity of 24 hr 00:00: 05:59 mouth 3 [place] capsule 00 :00 (three) Medical times Branch daily for 30 days. triamcinolo 2020- No [id number] Apply to [facility] ne 11-21 area(s) 2 ity of acetonide 00:00: 00:00 (two) [place] 0.1 % cream 00 :00 times Medical daily. Branch cephALEXin 2020- No [id number] 1000mg Take 2 Univers 500 mg 11-21 capsules ity of capsule 00:00: 00:00 by mouth 3 [place] 00 :00 (three) Medical times Branch daily. doxycycline 2020- No [id number] 100mg Take 1 Univers hyclate 100 11-21 capsule by i ty of mg capsule 00:00: 00:00 mouth [place] 00 :00 every 12 Medical (twelve) Branch hours. lactobacill 2020- No [id number] 1{tbl} Take 1 Univers us 11-21 tablet by ity of acidophilus 00:00: 00:00 mouth 2 [place] 25 million 00 :00 (two) Medical cell -100 times Branch mg captab daily. bisacodyL 2020- No [id number] 10mg Insert 1 Univers 10 mg 11-21 Suppositor ity of suppository 00:00: 00:00 y into [place] 00 :00 rectum at Medical bedtime as Branch needed for Constipati on. ALPRAZolam 2020- No [id number] .25mg Take 1 Univers (XANAX) 11-21 tablet by ity of 0.25 mg 00:00: 00:00 mouth 2 [place] tablet 00 :00 (two) Medical times Branch daily. hydrOXYzine 2020- No [id number] 20mg Take 2 Univers 10 mg 11-21 [...] Units ity of (LANTUS 01:13: under the [place] SOLOSTAR) 36 skin. Medical 100 unit/mL Branch [...] Units ity of (LANTUS 01:13: under the [place] [facility] 36 skin. Medical 100 unit/mL Branch (3 mL) InPn INSULIN 2019-10 Yes 5U inject 5 Univer s ASPART 1-12 Units ity of (NOVOLOG 01:13: under the [facility] s FLEXPEN SC) 36 skin. [...] Units ity of (LANTUS 01:13: under the [place] SOLOSTND) 36 skin. Medical 100 unit/mL Branch (3 mL) In INSULIN 2019- Yes 5U inject 5 Univer s ASPART 1-12 Units ity of (NOVOLOG 01:13: under the [place] [facility] s FLEXPEN SC) 36 skin. Medical Branch [...] Units ity of (LANTUS 01:13: under the [place] [facility]) 36 skin. Medical 100 unit/mL Branch (3 mL) In INSULIN 2019-10 Yes 5U inject 5 Univer s ASPART 1-12 Units ity of (NOVOLOG 01:13: under the [facility] s FLEXPEN SC) 36 skin. [...] Units ity of (LANTUS 01:13: under the [place] SOLOSTAR) 36 skin. Medical 100 unit/mL Branch (3 mL) InPn INSULIN 2019-10 Yes 5U inject 5 Univer s ASPART 1-12 Units ity of (NOVOLOG 01:13: under the [facility] s FLEXPEN SC) 36 skin. [...] Units ity of (LANTUS 01:13: under the [place] SOLOSTAR) 36 skin. Medical 100 unit/mL Branch [...] 34 :00 Medical Branch hydrocortis 2019- Yes [id number] Apply to Univers one 2.5 % 1-11 affected ity of cream 00:00: area(s) 2 [place] (two) Medical times Branch daily. hydrOXYzine 2019-10 Yes [id number] 20mg Take 2 Univers 10 mg 1-11 tablets by ity of tablet 00:00: mouth [place] 00 every 8 Medical (eight) Branch hours as needed for Itching or Anxiety. Polyethylen 2019-10 Yes [id number] 17g Take 1 Univers e Glycol 1-11 Packet by ity of 3350 17 00:00: mouth [place] gram powder 00 every 24 Medi jose c (twenty-fo Branch ur) hours as needed for Constipati on. hydrocortis 2019-10 Yes [id number] Apply to Univers one 2.5 % 1-11 affected ity of cream 00:00: area(s) 2 [place] 00 (two) Medical times Branch daily. hydrOXYzine 2019- Yes [id number] 20mg Take 2 Univers 10 mg 1-11 tablets by ity of tablet 00:00: mouth [place] 00 every 8 Medical (eight) Branch hours as needed for Itching or Anxiety. Polyethylen 2019- Yes [id number] 17g Take 1 Univers e Glycol 1-11 Packet by ity of 3350 17 00:00: mouth [place] gram powder 00 every 24 Medi jose c (twenty-fo Branch ur) hours as needed for Constipati on. hydrocortis 2019- Yes [id number] Apply to Univers one 2.5 % 1-11 affected ity of cream 00:00: area(s) 2 [place] 00 (two) Medical times Branch daily. hydrOXYzine 2019- Yes [id number] 20mg Take 2 Univers 10 mg 1-11 tablets by ity of tablet 00:00: mouth [place] 00 every 8 Medical (eight) Branch hours as needed for Itching or Anxiety. Polyethylen 2020- Yes [id number] 17g Take 1 Univers e Glycol 1-11 Packet by ity of 3350 17 00:00: mouth [place] gram powder 00 every 24 Medi jose c (twenty-fo Branch ur) hours as needed for Constipati on. hydrocortis 2019- Yes [id number] Apply to Univers one 2.5 % 1-11 affected ity of cream 00:00: area(s) 2 [place] 00 (two) Medical times Branch daily. hydrOXYzine 2019- Yes [id number] 20mg Take 2 Univers 10 mg 1-11 tablets by ity of tablet 00:00: mouth [place] 00 every 8 Medical (eight) Branch hours as needed for Itching or Anxiety. Polyethylen 2019- Yes [id number] 17g Take 1 Univers e Glycol 1-11 Packet by ity of 3350 17 00:00: mouth [place] gram powder 00 every 24 Medi jose c (twenty-fo Branch ur) hours as needed for Constipati on. hydrocortis 2019-10 Yes [id number] Apply to Univers one 2.5 % 1-11 affected ity of cream 00:00: area(s) 2 [place] 00 (two) Medical times Branch daily. hydrOXYzine 2019- Yes [id number] 20mg Take 2 Univers 10 mg 1-11 tablets by ity of tablet 00:00: mouth [place] 00 every 8 Medical (eight) Branch hours as needed for Itching or Anxiety. Polyethylen 2019- Yes [id number] 17g Take 1 Univers e Glycol 1-11 Packet by ity of 3350 17 00:00: mouth [place] gram powder 00 every 24 Medi jose c (twenty-fo Branch ur) hours as needed for Constipati on. hydrocortis 2019- Yes [id number] Apply to Univers one 2.5 % 1-11 affected ity of cream 00:00: area(s) 2 [place] 00 (two) Medical times Branch daily. hydrOXYzine 2019- Yes [id number] 20mg Take 2 Univers 10 mg 1-11 tablets by ity of tablet 00:00: mouth [place] 00 every 8 Medical (eight) Branch hours as needed for Itching or Anxiety. Polyethylen 2019- Yes [id number] 17g Take 1 Univers e Glycol 1-11 Packet by ity of 3350 17 00:00: mouth [place] gram powder 00 every 24 Medi jose c (twenty-fo Branch ur) hours as needed for Constipati on. hydrocortis 2019-10 Yes [id number] Apply to Univers one 2.5 % 1-11 affected ity of cream 00:00: area(s) 2 [place] 00 (two) Medical times Branch daily. hydrOXYzine 2019-10 Yes [id number] 20mg Take 2 Univers 10 mg 1-11 tablets by ity of tablet 00:00: mouth [place] 00 every 8 Medical (eight) Branch hours as needed for Itching or Anxiety. Polyethylen 2019-10 Yes [id number] 17g Take 1 Univers e Glycol 1-11 Packet by ity of 3350 17 00:00: mouth [place] gram powder 00 every 24 Medi jose c (twenty-fo Branch ur) hours as needed for Constipati on. triamcinolo 2019-10 2020- No [id number] Apply to [facility] 10-23 area(s) 2 ity of acetonide 00:00: 05:59 (two) [place] 0.1 % cream 00 :00 times Medical daily for Branch 14 days. triamcinolo 2019-10 2020- No [id number] Apply to [facility] 10-23 area(s) 2 ity of acetonide 00:00: 05:59 (two) [place] 0.1 % cream 00 :00 times Medical daily for Branch 14 days. triamcinolo 2019-10 2020- No [id number] Apply to [facility] 10-23 area(s) 2 ity of acetonide 00:00: 05:59 (two) [place] 0.1 % cream 00 :00 times Medical daily for Branch 14 days. KCL 2019-10 2020- No 40meq 40 mEq, Univers (KLOR-CON 10-22- Oral, ONCE ity of M20) tablet 16:15: 16:23 NOW, 1 [place] 40 mEq 00 :00 dose, [facility] 08/22/20 Branch at 1015, Routine HYDROmorpho 2019-10 Yes 1mg 1 mg, Unive rs ne - Oral, ity of (DILAUDID) 15:07: Q6HPRN, [place] tablet 1 mg 53 Starting Medi jose c Tue Branch 08/22/20 at 0907, Until Discontinu ed, Routine, Pain (scale 7-10) hydrocortis 2019- Yes Topical Uni vers one 2.5 % 1-10 (Apply To ity o f cream 02:00: Affected [place] 00 Areas), Medical BID, First Branch dose on [facility] 08/21/20 at 2000, Until Discontinu ed, Routine triamcinolo 2019- Yes Topical, Un toi ne 1-10 BID, First ity of acetonide 02:00: dose on [place] (TRIDERM) 00 [facility] Medical 0.1 % cream 08/21/20 at Br anch 2000, Until Discontinu ed, Routine hydrOXYzine 2019-10 Yes 20mg 20 mg, Univ ers (ATARAX) 09 Oral, ity of tablet 20 17:39: Q8HPRN, [place] mg [address] [facility] Branch 08/21/20 at 1139, Until Discontinu ed, Routine, Itching, Anxiety sennosides- 2019-10 Yes 1{tbl} 1 tablet, Univers docusate 10-21 Oral, ity of sodium 15:00: DAILY, [place] (SENOKOT-S) 00 First dose Me dical 8.6-[address] [facility] Branch per tablet 08/21/20 at 1 tablet 0900, Until Discontinu ed, Routine hydrocortis 2019-10 2020- No Topical Un toi one 1 % 10-21- (Apply To ity of cream 15:00: 22:54 Affected [place] 00 :48 Areas), Medical DAILY, Branch First dose on [facility] 08/21/20 at 0900, Until Discontinu ed, Routine venlafaxine 2019-10 Yes 150mg 150 mg, Un toi XR (EFFEXOR 09 Oral, TID, it y of XR) 24 hr 14:00: First dose [place] capsule [address] [facility] Medica l mg 08/21/20 at Branch 0800, Until Discontinu ed, Routine heparin 2019-10 Yes 5000U 5,000 Univers (porcine) -09 Units, ity of injection 14:00: Subcutaneo [place] 5,000 Units 00 us, Q12H, Med ical First dose Branch on [facility] 08/21/20 at 0800, Until Discontinu ed, Routine diphenhydrA 2019-10 2020- No 25mg 25 mg, Uni vers MINE 10-21 Oral, ity of (BENADRYL) 12:56: 17:39 Q8HPRN, [place] tablet 25 59 :43 Starting Medica l mg [facility] 08/21/20 at 0656, Until [facility] 08/21/20 at 1139, Routine, Itching, Mild Rash, Congestion /Allergies , alternate with hydroxyzin e hydrOXYzine 2019-10- No 10mg 10 mg, Uni vers (ATARAX) 10-21 Oral, ity of tablet 10 10:20: 12:57 Q6HPRN, [place] mg 22 :12 Starting [facility] 08/21/20 at 0420, Until [facility] 08/21/20 at 0657, Routine, Itching, Anxiety Sliding 2019-10 Yes Subcutaneo [facility] ers Scale 09 us, Q4H, ity of Insulin - 10:00: [place] dose [place] Aspart 00 (after Medical (NOVOLOG) + last Branch Fsbg modificati Testing on) on [facility] 08/21/20 at 0400, Until Discontinu ed, Routine lidocaine 5 2019-10 2020- No Topical, U nivers % ointment 10-21 ONCE, 1 ity o f 09:30: 09:14 dose, [facility] 00 :00 08/21/20 at [facility] 0330, Branch Routine Polyethylen 2019-10 Yes 17g 17 g, [facility] rs e Glycol 10-21 Oral, ity of 3350 08:29: [id number], [place] (MIRALAX) Starting Medica l powder 17 g [facility] 08/21/20 at 0229, Until Discontinu ed, Routine, Constipati on lanolin 2019-10 Yes [facility]ical, [facility]- 10-21 PRN, ity of w.pet-ceres 08:26: [place] (EUCERIN) 30 [facility] cream 08/21/20 at Branch 0226, Until Discontinu ed, Routine, Dermatitis /Rash ALPRAZolam 2019-10 Yes .25mg 0.25 mg, Un toi (XANAX) 10-21 Oral, ity of tablet 0.25 08:25: BIDPRN, Ejff as mg 41 Starting [facility] 08/21/20 at 0225, Until Discontinu ed, Routine, [...] hours. Branch blood sugar Yes Use to Telder[facility] ers diagnostic 4-25 check ity of (FREESTYLE 00:00: blood [place] LITE 00 glucose Medical STRIPS) 4-5 times Branch strip daily. blood sugar Yes Use to Tel[place] ers diagnostic 4-25 check ity of (FREESTYLE 00:00: blood [place] LITE 00 glucose Medical STRIPS) 4-5 times Branch strip daily. blood sugar Yes Use to Univ ers diagnostic 4-25 check ity of (FREESTYLE 00:00: blood [place] LITE 00 glucose Medical STRIPS) 4-5 times Branch strip daily. blood sugar Yes Use to Telderi ers diagnostic 4-25 check ity of (FREESTYLE 00:00: blood [place] LITE 00 glucose Medical STRIPS) 4-5 times Branch strip daily. blood sugar Yes Use to Telderi ers diagnostic 4-25 check ity of (FREESTYLE 00:00: blood [place] LITE 00 glucose Medical STRIPS) 4-5 times Branch strip daily. blood sugar Yes Use to [facility] ers diagnostic 4-25 check ity of [...] 13:00:00 148 mm[Hg] Univer sity of pressure [place] [facility] Diastolic blood 2021-08-22 13:00:00 84 mm[Hg] Unive rsity of pressure [facility] Heart rate 2021-08-22 13:00:00 103 /min [facility] Respiratory rate 2021-08-22 13:00:00 18 /min Univ ersity [facility] [place] [facility] [place] Oxygen saturation in 2021-08-22 13:00:00 95 /min University of Arterial blood by [facility] Pulse oximetry Branch Body temperature 2021-08-22 12:22:00 36.72 [place] Univ ersity [facility] [place] [facility] Systolic blood 2020-12-17 18:35:00 139 mm[Hg] Univer sity of pressure [place] [facility] Diastolic blood 2020-12-17 18:35:00 87 mm[Hg] Unive rsity of pressure [place] [facility] Heart rate 2020-12-17 18:35:00 110 /min [facility] Body temperature 2020-12-17 18:35:00 37.72 [place] Univ ersity [facility] [place] [facility] Respiratory rate 2020-12-17 18:35:00 18 /min Univ ersity [facility] [place] [facility] Oxygen saturation in 2020-12-17 18:35:00 93 /min University of Arterial blood by [facility] Pulse oximetry Branch Body height 2020-12-12 08:21:00 180.3 cm [facility] Body weight 2020-12-12 08:21:00 103.42 kg [facility] BMI 2020-12-12 08:21:00 31.80 kg/m2 [facility] Systolic blood 2020-12-17 18:35:00 139 mm[Hg] Univer sity of pressure [place] [facility] Diastolic blood 2020-12-17 18:35:00 87 mm[Hg] Unive rsity of pressure [place] [facility] Heart rate 2020-12-17 18:35:00 110 /min [facility] [place] [facility] [place] Body temperature 2020-12-17 18:35:00 37.72 [place] Univ ers[facility] [place] [facility] Respiratory rate 2020-12-17 18:35:00 18 /min Univ [facility]ity [facility] [place] [facility] Oxygen saturation in 2020-12-17 18:35:00 93 /min University of Arterial blood by [place] [employer] Pulse oximetry Branch Body height 2020-12-12 08:21:00 180.3 cm [facility] [place] [facility] [place] Body weight 2020-12-12 08:21:00 103.42 kg [facility] [place] [facility] [place] BMI 2020-12-12 08:21:00 31.80 kg/m2 [facility] [place] [facility] Systolic blood 2020-08-23 19:27:00 140 mm[Hg] Univer sity of pressure [place] [facility] Diastolic blood 2020-08-23 19:27:00 79 mm[Hg] Unive rsity of pressure [place] [facility] Heart rate 2020-08-23 19:27:00 99 /min [facility] [place] [facility] [place] Body temperature 2020-08-23 19:27:00 36 [place] Univ [facility] [place] [facility] Respiratory rate 2020-08-23 19:27:00 18 /min Univ [facility]ity [facility] [place] [facility] Oxygen saturation in 2020-08-23 19:27:00 93 /min University of Arterial blood by [place] [employer] Pulse oximetry Branch Body weight 2020-08-21 07:20:00 104.962 kg [facility] [place] [facility] BMI 2020-08-21 07:20:00 32.27 kg/m2 [facility] [place] [facility] Systolic blood 2020-08-23 19:27:00 140 mm[Hg] Univer sity of pressure [place] [facility] Diastolic blood 2020-08-23 19:27:00 79 mm[Hg] Unive rsity of pressure [place] [facility] Heart rate 2020-08-23 19:27:00 99 /min [facility] [place] [facility] Body temperature 2020-08-23 19:27:00 36 [place] [facility] Respiratory rate 2020-08-23 19:27:00 18 /min [facility] Oxygen saturation in 2020-08-23 19:27:00 93 /min [facility] Arterial blood by [facility] Pulse oximetry [place] Body weight 2020-08-21 07:20:00 104.962 kg [facility] BMI 2020-08-21 07:20:00 32.27 kg/m2 [facility] Procedures Procedure Date / Time Performing Clinician Source Performed POCT GLUCOSE (AUTOMATED) 2020-12-17 15:42:00 Harrison[facility]OL[facility] PANEL 2020-12-17 10:45:00 Paul Bean [facility] (NA, K, CL, CO2, GLUCOSE, [facility] Medica l Branch BUN, CREATININE, CA) CBC WITH DIFF 2020-12-17 10:45:00 Paul Bean [facility] POCT GLUCOSE (AUTOMATED) 2020-12-17 02:36:00 Harrison, Premal G Uni [facility] XR TIBIA FIBULA 2 VW LEFT 2020-12-16 23:38:00 Paul Bean [facility] POCT GLUCOSE (AUTOMATED) 2020-12-16 23:20:00 Harrison, [facility] PO[facility] GLUCOSE (AUTOMATED) 2020-12-16 20:10:00 Harrison, Premal G Uni versity of [facility] POCT GLUCOSE (AUTOMATED) 2020-12-16 14:43:00 Harrison, [facility] BASIC METABOLIC PANEL 2020-12-16 13:51:00 Paul Bean [facility] (NA, K, CL, CO2, GLUCOSE, [place] [facility] BUN, CREATININE, CA) CBC WITH DIFF 2020-12-16 13:51:00 Paul Bean [facility] POCT GLUCOSE (AUTOMATED) 2020-12-16 04:00:00 Harrison, [facility] POCT GLUCOSE (AUTOMATED) 2020-12-16 00:14:00 Harrison, Premal G Uni versity of [facility] CT CHEST PULMONARY 2020-12-15 22:29:38 Paul Bean [facility] ANGIOGRAM [facility] POCT GLUCOSE (AUTOMATED) 2020-12-15 19:26:00 Harrison, Premal G Uni versity of [facility] POCT GLUCOSE (AUTOMATED) 2020-12-15 15:13:00 Harrison, Premal G Uni versity of [facility] HB ECG ROUTINE & RHYTHM 2020-12-15 14:25:27 Cailin Romo [facility] Branch MAGNESIUM 2020-12-15 12:01:00 Paul Bean Sivakumar [facility] BASIC METABOLIC PANEL 2020-12-15 12:01:00 Paul Bean [facility] (NA, K, CL, CO2, GLUCOSE, [place] [facility] BUN, CREATININE, CA) CBC WITH DIFF 2020-12-15 12:01:00 Paul Bean [facility] POCT GLUCOSE (AUTOMATED) 2020-12-15 03:57:00 Harrison, Premal G Uni versity of [facility] POCT GLUCOSE (AUTOMATED) 2020-12-14 23:31:00 Harrison, Premal G Uni versity of [facility] POCT GLUCOSE (AUTOMATED) 2020-12-14 19:08:00 Harrison, Premal G Uni versity of [facility] POCT GLUCOSE (AUTOMATED) 2020-12-14 15:11:00 Harrison, Premal G Uni versity of [facility] POCT GLUCOSE (AUTOMATED) 2020-12-14 02:36:00 Harrison, Premal G Uni versity of [facility] POCT GLUCOSE (AUTOMATED) 2020-12-13 23:32:00 Harrison, Premal G Uni versity of [facility] POCT GLUCOSE (AUTOMATED) 2020-12-13 18:08:00 Harrison, Premal G Uni versity of [facility] BASIC METABOLIC PANEL 2020-12-13 15:39:00 Paul Bean [facility] (NA, K, CL, CO2, GLUCOSE, [place] [facility] BUN, CREATININE, CA) CBC WITH DIFF 2020-12-13 15:39:00 Paul Bean Sivakumar [facility] POCT GLUCOSE (AUTOMATED) 2020-12-13 14:06:00 Harrison, Premal G [facility] POCT GLUCOSE (AUTOMATED) 2020-12-13 03:07:00 Harrison, Premal [facility] POCT GLUCOSE (AUTOMATED) 2020-12-12 23:52:00 Harrison, Premal G [facility] POCT GLUCOSE (AUTOMATED) 2020-12-12 20:28:00 Harrison, [facility] POCT GLUCOSE (AUTOMATED) 2020-12-12 19:14:00 Harrison, Premal [facility] POCT GLUCOSE (AUTOMATED) 2020-12-12 14:33:00 Harrison, Premal [facility] MAGNESIUM 2020-12-12 08:58:00 Paul Bean Sivakumar [facility] BASIC METABOLIC PANEL 2020-12-12 08:58:00 Paul Bean [facility] (NA, K, CL, CO2, GLUCOSE, [place] [facility] BUN, CREATININE, CA) CBC WITH DIFF 2020-12-12 08:58:00 Paul Bean Sivakumar [facility] US ABDOMEN LIMITED 2020-12-12 06:32:26 Paul Bean Sivakumar [facility] POCT GLUCOSE (AUTOMATED) 2020-12-12 03:40:00 Harrison, Premal G Uni [facility] POCT GLUCOSE (AUTOMATED) 2020-12-12 00:06:00 Harrison, Premal G Uni [facility] XR HIPS 3 VW LEFT 2020-12-11 20:20:00 Darnell Beanaham Sivakumar [facility] HB ECG ROUTINE & RHYTHM 2020-12-11 20:04:06 Cailin Romo [facility] VITAMIN B6, PLASMA 2020-12-11 19:17:00 [facility] POCT GLUCOSE (AUTOMATED) 2020-12-11 19:06:00 Rene Harrison [facility] CREATINE KINASE 2020-12-11 18:22:00 Clarisse Hannon [facility] VITAMIN B12, LEVEL 2020-12-11 18:22:00 Paul Bean [facility] FOLATE 2020-12-11 18:22:00 Vikas [facility] THYROID STIMULATING 2020-12-11 18:22:00 Cailin Romo [facility] HORMONE [facility] PROCALCITONIN 2020-12-11 18:22:00 Vikas [facility] VITAMIN B1 (THIAMINE), 2020-12-11 18:22:00 Paul Bean Sivakumar [facility] WHOLE BLOOD [facility] CT HEAD WO CONTRAST 2020-12-11 14:07:35 Sweetie Stout [facility] URINALYSIS 2020-12-11 13:44:00 Singer [facility] URINE CULTURE 2020-12-11 13:44:00 [facility] COVID-19 (ID NOW RAPID 2020-12-11 12:31:00 Paco Lacey [facility] TESTING) [facility] LAB ONLY COVID 2020-12-11 12:31:00 Singer [facility] XR CHEST 1 VW 2020-12-11 12:07:24 Singer [facility] BLOOD CULTURE SCREEN 2020-12-11 12:02:00 Paco Lacey [facility] MAGNESIUM 2020-12-11 12:02:00 Paul Bean Sivakumar [facility] FERRITIN SERUM 2020-12-11 12:02:00 Darnell Beanaham Sivakumar [facility] COMP. METABOLIC PANEL 2020-12-11 12:02:00 Paco Lacey [facility] ([id number]) Medical Branch CBC WITH DIFF 2020-12-11 12:02:00 Singer [facility] LACTIC ACID WHOLE BLOOD 2020-12-11 12:02:00 Paco Lacey [facility] BLOOD CULTURE SCREEN 2020-12-11 11:42:00 Paco Lacey [facility] EMERGENCY SERVICES 2020-12-11 06:01:00 Doctor Tabitha, [facility] AGREEMENTS AND [facility] [facility] AUTHORIZATIONS HOSPITAL ADMISSION 2020-12-11 06:01:00 Doctor Tabitha [facility] [place] [facility] HOME HEALTH - OTHER 2020-11-11 06:01:00 Doctor Tabitha [facility] [place] [facility] HEALTH - OTHER 2020-10-30 06:01:00 Doctor Tabitha [facility] Name [facility] EXTERNAL PROVIDER RECORDS 2020-09-01 06:01:00 Doctor Tabitha, [facility] Name [facility] POCT GLUCOSE (AUTOMATED) 2020-08-23 18:09:00 Kelly Washington [facility] POCT GLUCOSE (AUTOMATED) 2020-08-23 14:14:00 Kelly Washington [facility] MAGNESIUM 2020-08-23 11:18:00 [facility] BASIC METABOLIC PANEL 2020-08-23 11:18:00 [facility] (NA, K, CL, CO2, GLUCOSE, Medica l Branch BUN, CREATININE, CA) CBC WITH DIFF 2020-08-23 11:18:00 [facility] POCT GLUCOSE (AUTOMATED) 2020-08-23 10:21:00 [facility]) 2020-08-23 05:55:00 Kelly [place] versity [facility] POCT GLUCOSE (AUTOMATED) 2020-08-23 03:00:00 Kelly [place] versity [facility] POCT GLUCOSE (AUTOMATED) 2020-08-22 23:38:00 Kelly Washington Uni versity [facility] POCT GLUCOSE (AUTOMATED) 2020-08-22 19:04:00 Washington, Kelly Uni [facility] POCT GLUCOSE (AUTOMATED) 2020-08-22 13:49:00 Kelly Washington [facility] MAGNESIUM 2020-08-22 10:10:00 Linden, [facility] HEPATIC FUNCTION PANEL 2020-08-22 10:10:00 Jill Aguila [facility] ([id number]) (ALB,T.PRO,BILI Medical Branch T,BU/BC,ALT,AST,ALK PHOS) BASIC METABOLIC PANEL 2020-08-22 10:10:00 Linden, [facility] (NA, K, CL, CO2, GLUCOSE, Medica l Branch BUN, CREATININE, CA) LIPID PANEL ([id number])(TOTAL 2020-08-22 10:10:00 Linden, [facility] TRIGLYCERIDES, HDL) CBC WITH DIFF 2020-08-22 10:10:00 [facility] POCT GLUCOSE (AUTOMATED) 2020-08-22 10:10:00 Kelly Washington [facility] POCT GLUCOSE (AUTOMATED) 2020-08-22 07:13:00 Kelly Washington [facility] POCT GLUCOSE (AUTOMATED) 2020-08-22 02:24:00 Kelly Washington [facility] POCT GLUCOSE (AUTOMATED) 2020-08-21 23:40:00 Kelly Washington [facility] POCT GLUCOSE (AUTOMATED) 2020-08-21 18:10:00 Kelly Washington [facility] POCT GLUCOSE (AUTOMATED) 2020-08-21 13:39:00 Kelly Washington [facility] ETHANOL 2020-08-21 12:35:00 Jos Quiroz [facility] ACTIVATED PARTIAL 2020-08-21 12:35:00 Padmini [facility] THRMPLAS [facility] GALV ONLY - SYPHILIS 2020-08-21 12:35:00 Padmini Kelly [facility] IGG/IGM [facility] LACTATE DEHYDROGENASE 2020-08-21 10:09:00 Ramya, [facility] GALV/CLC ONLY - URINE 2020-08-21 10:09:00 Jos Quiroz [facility] DRUG (IMMUNOASSAY) - 4 ER Medica l Branch PANEL URINALYSIS 2020-08-21 10:09:00 Linden, [facility] URINE CULTURE 2020-08-21 10:09:00 Ramya, [facility] PROCALCITONIN 2020-08-21 10:09:00 Ramya, [facility] POCT GLUCOSE (AUTOMATED) 2020-08-21 09:41:00 Kelly Washington [facility] PROTHROMBIN TIME / INR 2020-08-21 08:32:00 Linden, [facility] ACTIVATED PARTIAL 2020-08-21 08:32:00 Linden, [facility] THRMPLAS [facility] C-REACTIVE PROTEIN 2020-08-21 08:31:00 Linden, [facility] HEPATIC FUNCTION PANEL 2020-08-21 08:31:00 Linden, [facility] ([id number]) (ALB,T.PRO,BILI Medical Branch T,BU/BC,ALT,AST,ALK PHOS) BASIC METABOLIC PANEL 2020-08-21 08:31:00 Ramya, [facility] (NA, K, CL, CO2, GLUCOSE, [facility] [place] BUN, CREATININE, CA) SEDIMENTATION RATE 2020-08-21 08:31:00 Linden, [facility] CBC WITH DIFF 2020-08-21 08:31:00 Ramya, [facility] GLYCOSYLATED HEMOGLOBIN 2020-08-21 08:31:00 Ramya, [facility] (A1C) [facility] HIV 1/2 AG-AB WITH REFLEX 2020-08-21 08:31:00 [facility] (ID NOW RAPID 2020-08-21 08:20:00 Ramya, [facility] TESTING) Medical Branch LAB ONLY COVID 2020-08-21 08:20:00 Linden, [facility] o f [facility] Encounters Start End Encounter Admission Attending Care Care Encounter Source Date/Time Date/Time Type Type Clinicians Facility Department ID 2020-08-21 Inpatient Shayy WASHINGTON [facility] KVNG [id number] Univers 01:07:00 KELLY cantu [facility] 2021-08-22 2021-08-22 Emergency [facility] [id number] Univers 06:21:00 08:02:00 SWEETIE cantu [facility] 2021-08-22 2021-08-22 Emergency [facility] [id number] Univers 06:21:00 08:02:00 Sweetie OREN [id number] i ty of [place] [id number] [facility] 084 [place] 2021-08-09 2021-08-09 Outpatient ZAKI, [facility] [id number] [facility] 10:27:03 10:27:03 ADRIANA lopez of Medicin e 2020-12-28 2020-12-[address] [facility] 1.2.840.114 [id number] 00:00:00 00:00:00 Calvin H PRIMARY [id number] CARE 4.2.7.2.686 PAVILLION [id number] 220 2020-12-28 2020-12-[address] [facility] 1.2.840.114 [id number] Univers 00:00:00 00:00:00 Calvin H PRIMARY [id number] it y of CARE 4[place]2.7.2.686 [place] [facility] [id number] Vt dical 220 Branch 2020-12-19 2020-12-19 Transition Tuan Peters 1.2.840.114 [id number] 00:00:00 00:00:00 of Care Ruchi Braswell [id number] [place] 4.2.7.2.686 [id number] 2020-12-19 2020-12-19 Transition Tuan Peters 1.2.840.114 [id number] Univers 00:00:00 00:00:00 of Care Ruchi Braswell [id number] it y of [place]2.7.2.686 [place] [id number] [facility] 403 Branch 2020-12-11 2020-12-17 [facility] Paco Lacey 1.2.840.1 [id number] 05:11:00 16:00:00 Encounter Rene Harrison [place] [id number] [facility] 4.2.7.2.[id number] [facility] 2020-12-11 2020-12-17 [facility] 1.2.840.1 [id number] [facility] 05:11:00 16:00:00 Encounter Rene Harrison [id number] ity of [facility] 4.2.7.2.686 [place] [id number] [place] [id number] [place] 2020-12-11 2020-12-11 Emergency X [facility] ERT [id number] Univers 05:11:00 05:11:00 [facility] 2020-11-16 2020-11-16 Emergency X [facility] ERT [id number] Univers 09:31:00 09:31:00 [facility] 2020-11-11 2020-11-11 Orders Doctor CUI 1.2.840.114 [id number] 00:00:00 00:00:00 Only Unassigned, MONIQUE [id number] [place] [facility] 4.2.7.2.686 [id number] [id number] 2020-11-11 2020-11-11 Orders Doctor CUI 1.2.840.114 [id number] Univers 00:00:00 00:00:00 Only Unassigned, MONIQUE [id number] ity of [place] [facility] 4.2.7.2.686 Jeff as [id number] [facility] 009 [place] 2020-11-07 2020-11-07 Telephone Wilder [facility] [id number] 00:00:00 00:00:00 Angi Tobin 350.1.13.10 [place] 4.2.7.2.686 Professio [id number] [address] 2020-11-07 2020-11-07 Telephone Hdz [facility] [id number] [facility] 00:00:00 00:00:00 Sendil DiegoWongHawaWong Tobin [id number] ity of [place]2.7.2.686 [place] Professio [id number] [address] 2020-10-30 2020-10-30 Orders Doctor BASILIA 1.2.840.114 [id number] 00:00:00 00:00:00 Only Unassigned, MONIQUE [id number] [facility] 4.2.7.2.686 [id number] [facility] 2020-10-30 2020-10-30 Orders Doctor CUI 1.2.840.114 [id number] Univers 00:00:00 00:00:00 Only Unassigned, MONIQUE [id number] ity of [place] [facility] 4.2.7.2.686 Jeff as [id number] [address] 2020-09-26 2020-09-26 Telephone [facility] 1.2.840.114 [id number] 00:00:00 00:00:00 [facility] [id number] CLINICS 4.2.7.2.686 [id number] [facility] 2020-09-26 2020-09-26 Telephone [facility] 1.2.840.114 [id number] Univers 00:00:00 00:00:00 [facility] 350.1.13.10 i ty of CLINICS 4[place]2.7.2.[place] [id number] [address] 2020-09-01 2020-09-01 Orders Doctor CUI 1.2.840.114 [id number] 00:00:00 00:00:00 Only Unassigned, MONIQUE 350.1.13.10 [facility] [place] 4.2.7.2.686 [id number] [id number] 2020-09-01 2020-09-01 Orders Doctor BASILIA 1.2.840.114 [id number] Univers 00:00:00 00:00:00 Only Unassigned, MONIQUE 350.1.13.10 ity of [place] [facility] 4.2.7.2.686 Jeff as [id number] [facility] 009 Branch 2020-08-25 2020-08-25 Transition Tuan Peters 1.2.840.114 [id number] 00:00:00 00:00:00 of Care Ruchi Braswell [id number] [place] 4.2.7.2.686 [id number] [facility] 2020-08-25 2020-08-25 Transition Tuan Peters 1.2.840.114 [id number] [facility] 00:00:00 00:00:00 of Care Ruchi Braswell [id number] it y of [place]2.[place] [id number] [address] 2020-08-21 2020-08-23 [facility] Ayleen 1.2.840.114 [id number] 01:07:00 18:35:00 Encounter Kelly Amaya [id number] [facility] 4.2.7.2.[id number] [facility] 2020-08-21 2020-08-23 [facility] 1. 2.840.114 [id number] [facility] 01:07:00 18:35:00 Encounter Nicci Mukul Kika Monique 350.1.13. [address] [facility] 4.2.7.2.686 Jeff as [id number] [address] Results Test Description Test Time Test Comments Results Result Comments Source POCT GLUCOSE (AUTOMATED) 2020-12-17 15:43:35 Test Item Value Reference Range Interpretation Comme nts POCT GLU (test code = 5398367180) 129 mg/dL 70-110 H Lab Interpretation (test code = 65448-6) Abnormal [facility] METABOLIC PANEL (NA, K, CL, CO2, GLUCOSE, BUN, CREATININE, CA)2020-12-17 11:45:07 Test Item Value Reference Range Interpretation Comments NA (test code = 137 mmol/L 135-145 1740627256) K (test code = 3.5 mmol/L 3.5-5.0 1715391917) CL (test code = 103 mmol/L 98-108 0881301398) CO2 TOTAL (test code = 26 mmol/L 23-31 7942485453) AGAP (test code = 2-16 9205146983) BUN (test code = 11 mg/dL 7-23 0202361184) GLUCOSE (test code = 175 mg/dL 70-110 H 4746052975) CREATININE (test code = 0.62 mg/dL 0.60-1.25 2224389811) CALCIUM (test code = 9.0 mg/dL 8.6-10.6 6856149769) eGFR Calculation mL/min/1.73m2 (Non-) (test code = 4766607966) eGFR Calculation mL/min/1.73m2 () (test code = 9285994730) JAMES (test code = JAMES) Association of [...] tests). Lab Interpretation Abnormal (test code = 51484-0) [facility] WITH [id number] 11:07:27 Test Item Value Reference Range Interpretation [...] RDW-SD (test code = 45.2 fL 38.5-51.6 87633-3) RDW-CV (test code = 16.9 % 12.1-15.4 H 788-0) PLT (test code = See_Comment H [Automated 777-3) message] The sy stem which generated this result transmitted reference range : 150 - 328 10*3/ ?L. The reference r torito was not used to interpret this result as normal/abnormal . MPV (test code = 8.1 fL 9.8-13.0 L 63937-2) NRBC/100 WBC (test See_Comment [Automat ed code = 7333404467) message] The system which generated this result transmitted reference range : 0.0 - 10.0 /100 WBCs. The refer ence range was not u sed to interpret th is result as normal/abnormal . NRBC x10^3 (test code <0.01 See_Comment [Auto mated = 7392338257) message] The s ysteEmber which generated this result transmitted reference range : 10*3/?L. The reference range was not used to interpret this result as normal/abnormal . GRAN MAT (NEUT) % 72.8 % (test code = 770-8) IMM GRAN % (test code 0.60 % = 1445690040) LYMPH % (test code = 18.4 % 736-9) MONO % (test code = 5.7 % 5905-5) EOS % (test code = 1.8 % 713-8) BASO % (test code = 0.7 % 706-2) GRAN MAT x10^3(ANC) 8.23 10*3/uL 1.99-6.95 H (test code = 9948143718) IMM GRAN x10^3 (test 0.07 10*3/uL 0.00-0.06 H code = 8577478230) LYMPH x10^3 (test code 2.08 10*3/uL 1.09-3.23 = 731-0) MONO x10^3 (test code 0.65 10*3/uL 0.36-1.02 = 742-7) EOS x10^3 (test code = 0.20 10*3/uL 0.06-0.53 711-2) BASO x10^3 (test code 0.08 10*3/uL 0.01-0.09 = 704-7) Lab Interpretation Abnormal (test code = 92533-4) [facility] 06:03:38 Test Item Value Reference Range Interpretation Comments POCT GLU (test code = 5783514854) 75 mg/dL 70-110 Lab Interpretation (test code = Normal 26196-2) [facility], [id number] 00:01:00 Test Item Value Reference Range Interpretation Comments VIT B6 (test code = 13.1 nmol/L 20.0-125.0 L INTERPRE TIVE 96758-7) INFORMATION: Vi tamin B6 (Pyridoxal 5-Phosphate) Pyridoxal 5'-phosphate me asured in a specimen collected follo wing an 8-hour or overnight fast accurately calra cates vitamin B6 nutritional sta tus. Non-fasting spe cimen concentration reflects recent vitamin intake. This test was develo ped and its perform ance characteristics determined by [facility]. I t has not been cleare d or approved by the [place] Food and Drug Administration. This test was perfor med in a CLIA certifie d laboratory and is intended for cl inical purposes.Perfor med By: [employer] [place] [address] [id number] Director: Namrata Klein MD Lab Interpretation Abnormal (test code = 76998-0) [facility] TIBIA FIBULA 2 VW [id number] 23:57:09 Tricompartmental knee joint osteoarthrosis.XR TIBIA FIBULA [...] No acute fracture or dislocation.IMPRESSIONTricompartmental knee joint osteoarthrosis.[facility] GLUCOSE (AUTOMATED) 2020-12-16 23:27:00 Test Item Value Reference Range Interpretation Comments POCT GLU (test code = 8647119744) 114 mg/dL 70-110 H Lab Interpretation (test code = Abnormal 98477-7) [facility] GLUCOSE (AUTOMATED)2020-12-16 20:12:00 Test Item Value Reference Range Interpretation Comments POCT GLU (test code = 2539337275) 105 mg/dL 70-110 Lab Interpretation (test code = Normal 81275-8) [facility] GLUCOSE (AUTOMATED)2020-12-16 14:44:00 Test Item Value Reference Range Interpretation Comments POCT GLU (test code = 9445794001) 153 mg/dL 70-110 H Lab Interpretation (test code = Abnormal 94175-0) [facility] METABOLIC PANEL (NA, K, CL, CO2, GLUCOSE, BUN, CREATININE, CA)2020-12-16 14:23:00 Test Item Value Reference Range Interpretation Comments NA (test code = 138 mmol/L 135-145 8044039930) K (test code = 3.4 mmol/L 3.5-5.0 L 5037058549) CL (test code = 100 mmol/L 98-108 0324180124) CO2 TOTAL (test code = 31 mmol/L 23-31 1614270275) AGAP (test code = 2-16 4855747144) BUN (test code = 11 mg/dL 7-23 4210403145) GLUCOSE (test code = 162 mg/dL 70-110 H 5691327578) CREATININE (test code = 0.64 mg/dL 0.60-1.25 0768515524) CALCIUM (test code = 8.9 mg/dL 8.6-10.6 0885128483) eGFR Calculation mL/min/1.73m2 (Non-) (test code = 6494498675) eGFR Calculation mL/min/1.73m2 () (test code = 4611555191) JAMES (test code = JAMES) Association of [...] tests). Lab Interpretation Abnormal (test code = 78103-9) [facility] WITH [id number] 14:05:00 Test Item Value Reference Range Interpretation [...] RDW-SD (test code = 45.4 fL 38.5-51.6 69271-6) RDW-CV (test code = 17.0 % 12.1-15.4 H 788-0) PLT (test code = See_Comment H [Automated 777-3) message] The sy stem which generated this result transmitted reference range : 150 - 328 10*3/ ?L. The reference r torito was not used to interpret this result as normal/abnormal . MPV (test code = 8.0 fL 9.8-13.0 L 05417-9) NRBC/100 WBC (test See_Comment [Automat ed code = 7974662147) message] The system which generated this result transmitted reference range : 0.0 - 10.0 /100 WBCs. The refer ence range was not u sed to interpret th is result as normal/abnormal . NRBC x10^3 (test code <0.01 See_Comment [Auto mated = 0983456279) message] The s ystem which generated this result transmitted reference range : 10*3/?L. The reference range was not used to interpret this result as normal/abnormal . GRAN MAT (NEUT) % 70.0 % (test code = 770-8) IMM GRAN % (test code 0.70 % = 0090925913) LYMPH % (test code = 20.5 % 736-9) MONO % (test code = 7.1 % 5905-5) EOS % (test code = 1.0 % 713-8) BASO % (test code = 0.7 % 706-2) GRAN MAT x10^3(ANC) 9.44 10*3/uL 1.99-6.95 H (test code = 0120922369) IMM GRAN x10^3 (test 0.09 10*3/uL 0.00-0.06 H code = 8691070928) LYMPH x10^3 (test code 2.76 10*3/uL 1.09-3.23 = 731-0) MONO x10^3 (test code 0.96 10*3/uL 0.36-1.02 = 742-7) EOS x10^3 (test code = 0.13 10*3/uL 0.06-0.53 711-2) BASO x10^3 (test code 0.10 10*3/uL 0.01-0.09 H = 704-7) Lab Interpretation Abnormal (test code = 17825-6) [facility] HospitalBlood Culture - Peripheral # [id number] 13:01:00 Test Item Value Reference Range Interpretation Comments Blood Culture-Aerobic No organisms No growth Previo us (test code = 46557-7) isolated prelim inary verified result was Culture In Progress on 12/11/2020 at 100 1 CSTPrevious preliminary verified result was No growth a t 24 hours on 12/12/2020 at 070 1 CSTPrevious preliminary verified result was No growth a t 48 hours on 12/13/2020 at 070 1 CSTPrevious preliminary verified result was No growth a t 72 hours on 12/14/2020 at 070 1 BIOCHEMIST Blood No organisms No growth Previous Culture-Anaerobic isolated preliminar y (test code = 20951-3) verifi ed result was Culture In Progress on 12/11/2020 at 100 1 CSTPrevious preliminary verified result was No growth a t 24 hours on 12/12/2020 at 070 1 CSTPrevious preliminary verified result was No growth a t 48 hours on 12/13/2020 at 070 1 CSTPrevious preliminary verified result was No growth a t 72 hours on 12/14/2020 at 070 1 BIOCHEMIST Lab Interpretation Normal (test code = 63824-4) [facility] # [id number] 13:01:00 Test Item Value Reference Range Interpretation Comments Blood Culture-Aerobic No organisms No growth Previo us (test code = 45845-5) isolated prelim inary verified result was Culture In Progress on 12/11/2020 at 100 1 CSTPrevious preliminary verified result was No growth a t 24 hours on 12/12/2020 at 070 1 CSTPrevious preliminary verified result was No growth a t 48 hours on 12/13/2020 at 070 1 CSTPrevious preliminary verified result was No growth a t 72 hours on 12/14/2020 at 070 1 BIOCHEMIST Blood No organisms No growth Previous Culture-Anaerobic isolated preliminar y (test code = 32637-1) verifi ed result was Culture In Progress on 12/11/2020 at 100 1 CSTPrevious preliminary verified result was No growth a t 24 hours on 12/12/2020 at 070 1 CSTPrevious preliminary verified result was No growth a t 48 hours on 12/13/2020 at 070 1 CSTPrevious preliminary verified result was No growth a t 72 hours on 12/14/2020 at 070 1 BIOCHEMIST Lab Interpretation Normal (test code = 97802-6) [facility] GLUCOSE (AUTOMATED)2020-12-16 04:01:00 Test Item Value Reference Range Interpretation Comments POCT GLU (test code = 3764410124) 156 mg/dL 70-110 H Lab Interpretation (test code = Abnormal 73678-9) [facility] GLUCOSE (AUTOMATED)2020-12-16 00:24:00 Test Item Value Reference Range Interpretation Comments POCT GLU (test code = 1750909827) 115 mg/dL 70-110 H Lab Interpretation (test code = Abnormal 27826-7) [facility] CHEST PULMONARY [id number] 23:34:55No pulmonary emboli. No interval change in [...] of intra and extrahepatic biliary du ctal dilatation.[facility] GLUCOSE (AUTOMATED) 2020-12-15 19:28:00 Test Item Value Reference Range Interpretation Comments POCT GLU (test code = 2134073475) 140 mg/dL 70-110 H Lab Interpretation (test code = Abnormal 47552-4) [facility]2021-[facility]-05 15:26:00 Test Item Value Reference Range Interpretation Comments MAGNESIUM (test code = 4271551971) 2.2 mg/dL 1.7-2.4 Lab Interpretation (test code = Normal 54494-7) [facility])2020-12-15 15:15:00 Test Item Value Reference Range Interpretation Comments POCT GLU (test code = 2229673668) 181 mg/dL 70-110 H Lab Interpretation (test code = Abnormal 86423-5) [facility] (NA, K, CL, CO2, GLUCOSE, BUN, CREATININE, CA)2020-12-15 13:07:00 Test Item Value Reference Range Interpretation Comments NA (test code = 136 mmol/L 135-145 3130066652) K (test code = 3.6 mmol/L 3.5-5.0 7954700426) CL (test code = 96 mmol/L 98-108 L 6388163493) CO2 TOTAL (test code = 29 mmol/L 23-31 4610543450) AGAP (test code = 2-16 3077073051) BUN (test code = 12 mg/dL 7-23 0490019179) GLUCOSE (test code = 183 mg/dL 70-110 H 9577392037) CREATININE (test code = 0.70 mg/dL 0.60-1.25 5287211071) CALCIUM (test code = 9.2 mg/dL 8.6-10.6 1189397009) eGFR Calculation mL/min/1.73m2 (Non-) (test code = 0784441011) eGFR Calculation mL/min/1.73m2 () (test code = 6698023677) JAMES (test code = JAMES) Association of [...] tests). Lab Interpretation Abnormal (test code = 07313-8) [facility] WITH [id number] 12:32:00 Test Item Value Reference Range Interpretation Comments WBC (test code = See_Comment H [Automated 9890-2) message] The system which generated this result transmit ronan reference range : 4.20 - 10.70 10*3/?L. The reference range was not used to interpret this result as normal/abnormal . RBC (test code = See_Comment H [Automated 819-8) message] The system which generated this result [...] RDW-SD (test code = 44.4 fL 38.5-51.6 90390-1) RDW-CV (test code = 17.7 % 12.1-15.4 H 788-0) PLT (test code = See_Comment H [Automated 777-3) message] The system which generated this result transmit ronan reference range : 150 - 328 10*3/ ?L. The reference range was not u sed to interpret th is result as normal/abnormal . MPV (test code = 8.1 fL 9.8-13.0 L 50549-9) NRBC/100 WBC (test See_Comment [Automat ed code = 0523211560) message] The system which generated this result transmit ronan reference range : 0.0 - 10.0 /100 WBCs. The reference range was not used to interpret this result as normal/abnormal . NRBC x10^3 (test code <0.01 See_Comment [Auto mated = 3746202944) message] The system which generated this result transmit ronan reference range : 10*3/?L. The reference range was not used to interpret this result as normal/abnormal . GRAN MAT (NEUT) % 74.5 % (test code = 770-8) IMM GRAN % (test code 0.70 % = 7541475269) LYMPH % (test code = 17.4 % 736-9) MONO % (test code = 6.8 % 5905-5) EOS % (test code = 0.2 % 713-8) BASO % (test code = 0.4 % 706-2) GRAN MAT x10^3(ANC) 11.99 10*3/uL 1.99-6.95 H (test code = 5966663290) IMM GRAN x10^3 (test 0.11 10*3/uL 0.00-0.06 H code = 7322600494) LYMPH x10^3 (test code 2.80 10*3/uL 1.09-3.23 = 731-0) MONO x10^3 (test code 1.10 10*3/uL 0.36-1.02 H = 742-7) EOS x10^3 (test code = 0.03 10*3/uL 0.06-0.53 L 711-2) BASO x10^3 (test code 0.06 10*3/uL 0.01-0.09 = 704-7) Lab Interpretation Abnormal (test code = 16645-1) [facility] GLUCOSE (AUTOMATED)2020-12-15 04:16:00 Test Item Value Reference Range Interpretation Comments POCT GLU (test code = 9099952339) 200 mg/dL 70-110 H Lab Interpretation (test code = Abnormal 24811-7) [facility]IT[facility] B1 (THIAMINE), WHOLE [id number] 00:30:00 Test Item Value Reference Range Interpretation Comments Vitamin B1, Whole 136 nmol/L 70-180 INTERPRETI VE INFORMATION: Blood (test code = Vitamin B 1, Whole Blood 90845-6) This assay júnior ures the concentration o f thiamine diphosphate (TD P), the primary active form of vitamin B1. Nick roximately 90 percent of v itamin B1 present in whol e blood is TDP. Thiamine a nd thiamine monoph osphate, which comprise the remaining 10 pe rcent, are not measured. T his test was developed a nd its performance characteristics determined by [facility]. I t has not been cleared or approved by the [place] Food and Drug Administration. This test was performed i n a CLIA certified labor atory and is intended for clinical purposes.Perfor med By: [employer] [place] [id number] aboratory Director: Namrata Klein MD [facility] GLUCOSE (AUTOMATED)2020-12-14 23:35:00 Test Item Value Reference Range Interpretation Comments POCT GLU (test code = 6430885367) 151 mg/dL 70-110 H Lab Interpretation (test code = Abnormal 50928-1) [facility] GLUCOSE (AUTOMATED)2020-12-14 19:19:00 Test Item Value Reference Range Interpretation Comments POCT GLU (test code = 9965008272) 193 mg/dL 70-110 H Lab Interpretation (test code = Abnormal 55215-1) [facility] GLUCOSE (AUTOMATED)2020-12-14 15:22:00 Test Item Value Reference Range Interpretation Comments POCT GLU (test code = 8222669384) 221 mg/dL 70-110 H Lab Interpretation (test code = Abnormal 06010-6) [facility] GLUCOSE (AUTOMATED)2020-12-14 02:37:00 Test Item Value Reference Range Interpretation Comments POCT GLU (test code = 4037291238) 210 mg/dL 70-110 H Lab Interpretation (test code = Abnormal 46089-0) [facility] GLUCOSE (AUTOMATED)2020-12-13 23:33:00 Test Item Value Reference Range Interpretation Comments POCT GLU (test code = 8936383029) 182 mg/dL 70-110 H Lab Interpretation (test code = Abnormal 81582-5) [facility] GLUCOSE (AUTOMATED)2020-12-13 18:09:00 Test Item Value Reference Range Interpretation Comments POCT GLU (test code = 1906860848) 150 mg/dL 70-110 H Lab Interpretation (test code = Abnormal 49956-4) [facility] METABOLIC PANEL (NA, K, CL, CO2, GLUCOSE, BUN, CREATININE, CA)2020-12-13 16:27:00 Test Item Value Reference Range Interpretation Comments NA (test code = 136 mmol/L 135-145 6740856761) K (test code = 3.7 mmol/L 3.5-5.0 9148452885) CL (test code = 96 mmol/L 98-108 L 2969824441) CO2 TOTAL (test code = 29 mmol/L 23-31 8575260261) AGAP (test code = 2-16 5436427536) BUN (test code = 6 mg/dL 7-23 L 8348986761) GLUCOSE (test code = 212 mg/dL 70-110 H 2288950960) CREATININE (test code = 0.61 mg/dL 0.60-1.25 5106192357) CALCIUM (test code = 9.5 mg/dL 8.6-10.6 3765350787) eGFR Calculation mL/min/1.73m2 (Non-) (test code = 3450296652) eGFR Calculation mL/min/1.73m2 () (test code = 5658786643) JAMES (test code = JAMES) Association of [...] tests). Lab Interpretation Abnormal (test code = 64367-8) [facility] WITH [id number] 16:10:00 Test Item Value Reference Range Interpretation Comments WBC (test code = See_Comment H [Automated 7590-2) message] The sy stem which generated this result transmitted reference range : 4.20 - 10.70 10*3/?L. The reference range was not used to interpret this result as normal/abnormal . RBC (test code = See_Comment H [Automated 759-8) message] The sy stem which generated this [...] RDW-SD (test code = 43.3 fL 38.5-51.6 33224-9) RDW-CV (test code = 16.2 % 12.1-15.4 H 788-0) PLT (test code = See_Comment H [Automated 777-3) message] The sy stem which generated this result transmitted reference range : 150 - 328 10*3/ ?L. The reference r torito was not used to interpret this result as normal/abnormal . MPV (test code = 8.2 fL 9.8-13.0 L 29857-6) NRBC/100 WBC (test See_Comment [Automat ed code = 1287006734) message] The system which generated this result transmitted reference range : 0.0 - 10.0 /100 WBCs. The refer ence range was not u sed to interpret th is result as normal/abnormal . NRBC x10^3 (test code <0.01 See_Comment [Auto mated = 7149489242) message] The s ystem which generated this result transmitted reference range : 10*3/?L. The reference range was not used to interpret this result as normal/abnormal . GRAN MAT (NEUT) % 86.2 % (test code = 770-8) IMM GRAN % (test code 0.70 % = 9449639083) LYMPH % (test code = 10.2 % 736-9) MONO % (test code = 2.5 % 5905-5) EOS % (test code = 0.1 % 713-8) BASO % (test code = 0.3 % 706-2) GRAN MAT x10^3(ANC) 9.61 10*3/uL 1.99-6.95 H (test code = 5712227714) IMM GRAN x10^3 (test 0.08 10*3/uL 0.00-0.06 H code = 0218913436) LYMPH x10^3 (test code 1.14 10*3/uL 1.09-3.23 = 731-0) MONO x10^3 (test code 0.28 10*3/uL 0.36-1.02 L = 742-7) EOS x10^3 (test code = <0.03 0.06-0.53 L 711-2) BASO x10^3 (test code 0.03 10*3/uL 0.01-0.09 = 704-7) Lab Interpretation Abnormal (test code = 13642-0) [facility]2020-12-13 14:16:00 Test Item Value Reference Range Interpretation Comments POCT GLU (test code = 2263686813) 236 mg/dL 70-110 H Lab Interpretation (test code = Abnormal 68962-5) [facility] COVID [id number] 04:58:00COVID DMT InterpretationInterpretation/Recommendations: Molecular NAAT Tests for [...] COVID-19 testing the patient has had at [facility], including molecular NAAT testing (more commonly known as PCR testing and Rapid ID Now testing) and antibody testing. It does not take into account any testing that a patient has had outside of the [facility] medical record. [facility] LABORATORY SERVICESCOVID Resu ypiUKEJ-OwT-9 Rapid ID NOW (no units) ? ? Date ? Value ? 12/11/2020 ? Not Detected ? ? ? 11/16/2020 ? Not Detected ? ? ? 08/21/2020 ?Not Detected ? [facility]Un[facility] 2020-12-13 03:11:00 Test Item Value Reference Range Interpretation Comments POCT GLU (test code = 4567641270) 171 mg/dL 70-110 H Lab Interpretation (test code = Abnormal 47972-4) [facility] GLUCOSE (AUTOMATED)2020-12-13 00:00:00 Test Item Value Reference Range Interpretation Comments POCT GLU (test code = 5283486779) 118 mg/dL 70-110 H Lab Interpretation (test code = Abnormal 30782-4) [facility] GLUCOSE (AUTOMATED)2020-12-12 20:29:00 Test Item Value Reference Range Interpretation Comments POCT GLU (test code = 2562528777) 173 mg/dL 70-110 H Lab Interpretation (test code = Abnormal 42965-7) [facility] HospitalUS ABDOMEN [id number] 19:56:17 1. ?Hepatic steatosis. However, limited evaluation [...] main portal veinwasevaluated with color Doppler imaging. Publicity Person images were obtainedfor the record. COMPARISON: Ultrasound [...] where visualized. SPLEEN:No images were obtained. [facility], Radiant Results Inft User - 12/12/2020 1:57 PM CSTEXAM: US ABDOMEN LIMITEDHISTORY: 70 years-old male with RUQ ultrasound to assess for common bileduct dilation .TECHNIQUE: Limited abdominal ultrasound focused on the liver, biliarysystem, pancreas, and spleen was performed. The main portal vein wasevaluated with color Doppler imaging. Publicity Person images were obtainedfor the record.COMPARISON: Ultrasound abdomen [...] this study and agree with the abovereport. [facility]2020-12-12 19:24:00 Test Item Value Reference Range Interpretation Comments POCT GLU (test code = 1718197959) 230 mg/dL 70-110 H Lab Interpretation (test code = Abnormal 55820-1) [facility] CHEST 1 [id number] 15:16:46 Low lung volumes with mild perihilar [...] have reviewed thisstudy and agree with theabove report.[facility]2020-12-12 14:34:00 Test Item Value Reference Range Interpretation Comments POCT GLU (test code = 5270262871) 225 mg/dL 70-110 H Lab Interpretation (test code = Abnormal 98883-3) [facility] HospitalURINE [id number] 13:28:00 Test Item Value Reference Range Interpretation Comments URINE CULTURE (test < 10,000 CFU/mL mixed code = 630-4) aerobic organisms - suggests endogenous microbial contamination [facility] Panel (NA, K, CL, CO2, GLUCOSE, BUN, CREATININE, CA)2020-12-12 10:05:00 Test Item Value Reference Range Interpretation Comments NA (test code = 136 mmol/L 135-145 3637462321) K (test code = 3.5 mmol/L 3.5-5.0 5591315796) CL (test code = 100 mmol/L 98-108 1254768586) CO2 TOTAL (test code = 31 mmol/L 23-31 3246793996) AGAP (test code = 2-16 1181827045) BUN (test code = 7 mg/dL 7-23 8861364023) GLUCOSE (test code = 259 mg/dL 70-110 H 2123763546) CREATININE (test code = 0.63 mg/dL 0.60-1.25 8430116277) CALCIUM (test code = 8.5 mg/dL 8.6-10.6 L 1394701250) eGFR Calculation mL/min/1.73m2 (Non-) (test code = 9478701163) eGFR Calculation mL/min/1.73m2 () (test code = 0204626422) JAMES (test code = JAMES) Association of [...] tests). Lab Interpretation Abnormal (test code = 10973-8) [facility] HospitalMagnesium [id number] 10:05:00 Test Item Value Reference Range Interpretation Comments MAGNESIUM (test code = 2319621374) 1.9 mg/dL 1.7-2.4 Lab Interpretation (test code = Normal 85247-3) [facility] with [id number] 09:48:00 Test Item Value Reference Range Interpretation Comments WBC (test code = See_Comment [Automated 4174-2) message] The sy stem which generated this result transmitted reference range : 4.20 - 10.70 10*3/?L. The reference range was not used to interpret this result as normal/abnormal . RBC (test code = See_Comment [Automated 580-8) message] The sy stem which generated this [...] RDW-SD (test code = 46.0 fL 38.5-51.6 52575-7) RDW-CV (test code = 16.1 % 12.1-15.4 H 788-0) PLT (test code = See_Comment H [Automated 777-3) message] The sy stem which generated this result transmitted reference range : 150 - 328 10*3/ ?L. The reference r torito was not used to interpret this result as normal/abnormal . MPV (test code = 8.6 fL 9.8-13.0 L 11521-3) NRBC/100 WBC (test See_Comment [Automat ed code = 4206351614) message] The system which generated this result transmitted reference range : 0.0 - 10.0 /100 WBCs. The refer ence range was not u sed to interpret th is result as normal/abnormal . NRBC x10^3 (test code <0.01 See_Comment [Auto mated = 1401337718) message] The s ystem which generated this result transmitted reference range : 10*3/?L. The reference range was not used to interpret this result as normal/abnormal . GRAN MAT (NEUT) % 70.2 % (test code = 770-8) IMM GRAN % (test code 0.30 % = 1971683252) LYMPH % (test code = 18.8 % 736-9) MONO % (test code = 5.0 % 5905-5) EOS % (test code = 5.2 % 713-8) BASO % (test code = 0.5 % 706-2) GRAN MAT x10^3(ANC) 6.05 10*3/uL 1.99-6.95 (test code = 9458367017) IMM GRAN x10^3 (test 0.03 10*3/uL 0.00-0.06 code = 1599781669) LYMPH x10^3 (test code 1.62 10*3/uL 1.09-3.23 = 731-0) MONO x10^3 (test code 0.43 10*3/uL 0.36-1.02 = 742-7) EOS x10^3 (test code = 0.45 10*3/uL 0.06-0.53 711-2) BASO x10^3 (test code 0.04 10*3/uL 0.01-0.09 = 704-7) Lab Interpretation Abnormal (test code = 18426-6) [facility] GLUCOSE (AUTOMATED)2020-12-12 03:42:00 Test Item Value Reference Range Interpretation Comments POCT GLU (test code = 196 mg/dL 70-110 H Notifi ed Provider 1883538981) Lab Interpretation (test Abnormal code = 38997-1) [facility] HospitalFOLATE2021-[facility] 02:24:00 Test Item Value Reference Range Interpretation Comments FOLATE SER (test code = 8437605474) 5.8 ng/mL 3.0-20.0 Lab Interpretation (test code = Normal 24554-3) [facility], [id number] 00:55:00 Test Item Value Reference Range Interpretation Comments VIT B12 (test code = 844 pg/mL 240-930 4206309461) JAMES (test code = JAMES) Biotin has been reported to cause a positive bias, interpret results relative to patient's use of biotin. Lab Interpretation (test Normal code = 37038-9) [facility] GLUCOSE (AUTOMATED)2020-12-12 00:14:00 Test Item Value Reference Range Interpretation Comments POCT GLU (test code = 9105788050) 164 mg/dL 70-110 H Lab Interpretation (test code = Abnormal 14626-7) [facility] HospitalCREATINE [id number] 23:42:00 Test Item Value Reference Range Interpretation Comments CK (test code = 8334138708) <20 33-194 L Lab Interpretation (test code = Abnormal 20626-2) [facility] HospitalTHYROID STIMULATING [id number] 23:17:00 Test Item Value Reference Range Interpretation Comments TSH (test code = See_Comment Biotin has been 4512364920) reported to cau se a negative bias, interpret resul ts relative to pat ient's use of biotin. [Automated mess age] The system [employer] generated this result transmitted ref erence range: 0.45 - 4 .70 mIU/L. The refe rence range was not u sed to interpret this result as normal/abnor mal. Lab Interpretation (test Normal code = 71178-8) [facility] HospitalXR HIPS 3 VW [id number] 21:41:53No appreciable fracture lines. RL: 6200 ICAL [...] No osseous erosions.IMPRESSIONNo appreciable fracture lines.RL: 6200 [facility] HospitalPROCALCITONIN2021-03-01 20:00:00 Test Item Value Reference Range Interpretation Comments Procalcitonin (test 0.13 ng/mL <0.07 H code = 1581781968) JAMES (test code = JAMES) INTERPRETATION OF [...] lung abscess/empyema. For further information please refer to:[email or web address] Lab Interpretation Abnormal (test code = 22996-0) [facility]PO[facility]SE (AUTOMATED)2020-12-11 19:07:00 Test Item Value Reference Range Interpretation Comments POCT GLU (test code = 9796927467) 274 mg/dL 70-110 H Lab Interpretation (test code = Abnormal 17069-6) [facility] HospitalMAGNESIUM2021-03-01 18:31:00 Test Item Value Reference Range Interpretation Comments MAGNESIUM (test code = 7727417550) 1.9 mg/dL 1.7-2.4 Lab Interpretation (test code = Normal 61227-3) [facility] HospitalFERRITIN [id number] 18:31:00 Test Item Value Reference Range Interpretation Comments FERRITIN (test code = 178.0 ng/mL 18.0-464.0 2213539811) JAMES (test code = JAMES) Biotin has been reported to cause a negative bias, interpret results relative to patient's use of biotin. Lab Interpretation (test Normal code = 46356-2) [facility] HospitalCT HEAD WO [id number] 14:36:47 No acute intracranial abnormality. Dilated ventricles [...] reviewed this study and agree with the abovereport.[facility] HospitalURINALYSIS2021-03-01 14:28:00 Test Item Value Reference Range Interpretation Comments APPEARANCE (test code = Clear Clear 0500092255) COLOR (test code = Yellow Yellow 1385272387) PH (test code = 4.8-8.0 5595375750) SP GRAVITY (test code = 1.003-1.030 2144856972) GLU U QUAL (test code = 500 mg/dL Normal A 3682714655) BLOOD (test code = Negative Negative 9183464889) KETONES (test code = 5 mg/dL Negative A 5140364675) PROTEIN (test code = Negative Negative 2887-8) UROBILIN (test code = Normal Normal 8310741025) BILIRUBIN (test code = Negative Negative 1617112949) NITRITE (test code = Negative Negative 0549679452) LEUK RYAN (test code = Negative Negative 2161334434) RBC/HPF (test code = See_Comment [Autom ated message] 3634342748) The system [employer] generated this result transmit ronan reference range : 0 - 3 HPF. The refe rence range was not u sed to interpret th is result as normal/abnormal . WBC/HPF (test code = See_Comment [Autom ated message] 3809972949) The system [employer] generated this result transmit ronan reference range : 0 - 5 HPF. The refe rence range was not u sed to interpret th is result as normal/abnormal . BACTERIA (test code = Negative Negative 2719766438) MUCOUS (test code = Slight Negative LPF A 7509128931) SQ EPITH (test code = HPF 9822242002) Lab Interpretation (test Abnormal code = 12332-9) [facility] HospitalCOVID-19 (ID NOW RAPID TESTING)2020-12-11 13:10:00 Test Item Value Reference Range Interpretation Comments SARS-CoV-2 Rapid ID NOW Not Detected Not Detected (test code = 25453-7) JAMES (test code = JAMES) ID NOW COVID-19 Assay is an isothermal nucleic acid amplification test intended for the qualitative detection of nucleic acid from SARS-CoV-2 viral RNA in nasopharyngeal (NOTCHING MACHINE OPERATOR) specimens. It is used under Emergency Use [...] indicated. Lab Interpretation Normal (test code = 27441-0) [facility]. METABOLIC PANEL (56216)2020-12-11 12:29:00 Test Item Value Reference Range Interpretation Comments NA (test code = 136 mmol/L 135-145 3536311393) K (test code = 3.5 mmol/L 3.5-5.0 6757153804) CL (test code = 95 mmol/L 98-108 L 3181464838) CO2 TOTAL (test code = 35 mmol/L 23-31 H 1449639731) AGAP (test code = 2-16 7056189704) BUN (test code = 9 mg/dL 7-23 2705535483) GLUCOSE (test code = 329 mg/dL 70-110 H 6950149793) CREATININE (test code = 0.72 mg/dL 0.60-1.25 7728094453) TOTAL BILI (test code = 0.6 mg/dL 0.1-1.6 1845415326) CALCIUM (test code = 9.0 mg/dL 8.6-10.6 1231512636) T PROTEIN (test code = 6.8 g/dL 6.3-8.2 8062776657) ALBUMIN (test code = 3.8 g/dL 3.5-5.0 5566253246) ALK PHOS (test code = 288 U/L 34-122 H 7132640835) ALTv (test code = 46 U/L 5-50 2-6) AST(SGOT) (test code = 38 U/L 13-40 5459617476) eGFR Calculation mL/min/1.73m2 (Non-) (test code = 9730723680) eGFR Calculation mL/min/1.73m2 () (test code = 3193028109) JAMES (test code = JAMES) Association of [...] tests). Lab Interpretation Abnormal (test code = 66453-7) [facility] HospitalLactic Acid Whole [id number] 12:23:00 Test Item Value Reference Range Interpretation Comments LACTIC ACID (test code = 2.09 mmol/L 0.50-2.20 8276789380) Lab Interpretation (test code = Normal 30892-0) [facility] HospitalCB WITH [id number] 12:17:00 Test Item Value Reference Range Interpretation [...] RDW-SD (test code = 44.9 fL 38.5-51.6 07777-6) RDW-CV (test code = 15.9 % 12.1-15.4 H 788-0) PLT (test code = See_Comment H [Automated 777-3) message] The sy stem which generated this result transmitted reference range : 150 - 328 10*3/ ?L. The reference r torito was not used to interpret this result as normal/abnormal . MPV (test code = 8.3 fL 9.8-13.0 L 31141-3) NRBC/100 WBC (test See_Comment [Automat ed code = 0693265118) message] The system which generated this result transmitted reference range : 0.0 - 10.0 /100 WBCs. The refer ence range was not u sed to interpret th is result as normal/abnormal . NRBC x10^3 (test code <0.01 See_Comment [Auto mated = 0642278826) message] The s ystem which generated this result transmitted reference range : 10*3/?L. The reference range was not used to interpret this result as normal/abnormal . GRAN MAT (NEUT) % 77.9 % (test code = 770-8) IMM GRAN % (test code 0.50 % = 2946359885) LYMPH % (test code = 12.2 % 736-9) MONO % (test code = 5.2 % 5905-5) EOS % (test code = 3.7 % 713-8) BASO % (test code = 0.5 % 706-2) GRAN MAT x10^3(ANC) 9.57 10*3/uL 1.99-6.95 H (test code = 7345810149) IMM GRAN x10^3 (test 0.06 10*3/uL 0.00-0.06 code = 9074048952) LYMPH x10^3 (test code 1.50 10*3/uL 1.09-3.23 = 731-0) MONO x10^3 (test code 0.64 10*3/uL 0.36-1.02 = 742-7) EOS x10^3 (test code = 0.46 10*3/uL 0.06-0.53 711-2) BASO x10^3 (test code 0.06 10*3/uL 0.01-0.09 = 704-7) Lab Interpretation Abnormal (test code = 02087-7) [facility] HospitalLAB ONLY COVID [id number] 18:43:00COVID DMT InterpretationInterpretation/Recommendations: Molecular NAAT Test Results [...] a nasopharyngeal sample, there is approximately a dfd-ro-inffo chance that the patient was infected and [...] based upon aggregate data pooled from the [facility] medical record including both current and prior COVID-19 related testing results for the following tests offered at our institution:A. Tests for the Identification of SARS-CoV-2 RNA:SARS-CoV-2 PCR assays including [place] Aptima, Washington Fusion, Barrett RealTime, and [employer] Xpert Xpress. SARS-CoV-2 Rapid ID NOW by the ID NOW assay. ? B. Tests for the Identification of SARS-CoV-2 Antibodies: Chemiluminescent immunoassays including Access SARS-CoV-2 IgM (DXI 600), TripologyS Jfcc-GQOQ-WeX-2 IgG (Vitros 5600 and Vitros 3600), and Barrett SARS-CoV-2 IgG (TRASH COLLECTOR SUPERVISOR I System). These interpretation comments assume that only the above testing was utilized and that the approved acceptable specimen type(s) were used for a given test. These interpretations are autopopulated into [employer] based on computerized algorithms matching an interpretation code number to the patient's set of test results. While a clinical pathologist evaluates the combinations for clinical accuracy, clinical correlation is recommended as it may not take into account very remote prior testing. Furthermore, it does not consider testing a patient may have had outside of the [facility] system. Additionally, it should be noted that the computerized algorithm treats the results for PCR testing and Rapid ID NOW testing (also PCR) synonymously, and thus, refers to both testing methodologies as PCR tests. Given that the sensitivity of [facility]'s Rapid ID NOW testingplatform is analogous [...] panel may be beneficial in this setting. [facility] LABORATORY SERVICESCOVID DpfxwejTHDQ-ZdT-1 Rapid ID NOW (no units) ? ? Date ? Value ? 08/21/2020 ? Not Detected ? [facility] SERVICESUn[facility]2020-08-23 18:25:00 Test Item Value Reference Range Interpretation Comments POCT GLU (test code = 6179119437) 297 mg/dL 70-110 H Lab Interpretation (test code = Abnormal 77473-2) [facility] GLUCOSE (AUTOMATED)2020-08-23 14:25:00 Test Item Value Reference Range Interpretation Comments POCT GLU (test code = 8013995514) 181 mg/dL 70-110 H Lab Interpretation (test code = Abnormal 92703-3) [facility] HospitalBasic Metabolic Panel (NA, K, CL, CO2, GLUCOSE, BUN, CREATININE, CA)2020-08-23 11:45:00 Test Item Value Reference Range Interpretation Comments NA (test code = 132 mmol/L 135-145 L 6447615466) K (test code = 4.0 mmol/L 3.5-5 3300209629) CL (test code = 96 mmol/L 98-108 L 6948874318) CO2 TOTAL (test code = 33 mmol/L 23-31 H 4601121279) AGAP (test code = 2-16 7833485667) BUN (test code = 9 mg/dL 7-23 3740609646) GLUCOSE (test code = 176 mg/dL 70-110 H 7239731286) CREATININE (test code = 0.66 mg/dL 0.6-1.25 7569757325) CALCIUM (test code = 8.5 mg/dL 8.6-10.6 L 7216405859) eGFR Calculation mL/min/1.73m2 (Non-) (test code = 6433958661) eGFR Calculation mL/min/1.73m2 () (test code = 9090101745) JAMES (test code = JAMES) Association of [...] tests). Lab Interpretation Abnormal (test code = 79519-0) [facility] HospitalMagnesium Rtges0334-25-43 11:45:00 Test Item Value Reference Range Interpretation Comments MAGNESIUM (test code = 7761434167) 2.0 mg/dL 1.7-2.4 Lab Interpretation (test code = Normal 71791-6) [facility] HospitalCB with Uezkvckyymoz2546-94-44 11:38:00 Test Item Value Reference Range Interpretation [...] RDW-SD (test code = 41.8 fL 38.5-51.6 84503-1) RDW-CV (test code = 14.3 % 12.1-15.4 788-0) PLT (test code = See_Comment H [Automated 777-3) message] The sy stem which generated this result transmitted reference range : 150 - 328 10*3/ ?L. The reference r torito was not used to interpret this result as normal/abnormal . MPV (test code = 8.0 fL 9.8-13 L 05891-4) NRBC/100 WBC (test See_Comment [Automat ed code = 6492865393) message] The system which generated this result transmitted reference range : 0.0 - 10.0 /100 WBCs. The refer ence range was not u sed to interpret th is result as normal/abnormal . NRBC x10^3 (test code <0.01 See_Comment [Auto mated = 9210121239) message] The s ystem which generated this result transmitted reference range : 10*3/?L. The reference range was not used to interpret this result as normal/abnormal . GRAN MAT (NEUT) % 61.5 % (test code = 770-8) IMM GRAN % (test code 2.00 % = 1943526606) LYMPH % (test code = 25.5 % 736-9) MONO % (test code = 6.3 % 5905-5) EOS % (test code = 3.7 % 713-8) BASO % (test code = 1.0 % 706-2) GRAN MAT x10^3(ANC) 5.29 10*3/uL 1.99-6.95 (test code = 9001075872) IMM GRAN x10^3 (test 0.17 10*3/uL 0-0.06 H code = 0462667619) LYMPH x10^3 (test code 2.19 10*3/uL 1.09-3.23 = 731-0) MONO x10^3 (test code 0.54 10*3/uL 0.36-1.02 = 742-7) EOS x10^3 (test code = 0.32 10*3/uL 0.06-0.53 711-2) BASO x10^3 (test code 0.09 10*3/uL 0.01-0.09 = 704-7) Lab Interpretation Abnormal (test code = 58042-6) [facility] GLUCOSE (AUTOMATED)2020-08-23 10:22:00 Test Item Value Reference Range Interpretation Comments POCT GLU (test code = 6263593225) 164 mg/dL 70-110 H Lab Interpretation (test code = Abnormal 98210-1) [facility] GLUCOSE (AUTOMATED)2020-08-23 05:56:00 Test Item Value Reference Range Interpretation Comments POCT GLU (test code = 7707154159) 242 mg/dL 70-110 H Lab Interpretation (test code = Abnormal 88694-7) [facility] GLUCOSE (AUTOMATED)2020-08-23 03:02:00 Test Item Value Reference Range Interpretation Comments POCT GLU (test code = 1222771553) 210 mg/dL 70-110 H Lab Interpretation (test code = Abnormal 22448-4) [facility] GLUCOSE (AUTOMATED)2020-08-22 23:40:00 Test Item Value Reference Range Interpretation Comments POCT GLU (test code = 5801043164) 267 mg/dL 70-110 H Lab Interpretation (test code = Abnormal 51720-7) [facility] GLUCOSE (AUTOMATED)2020-08-22 19:08:00 Test Item Value Reference Range Interpretation Comments POCT GLU (test code = 3693906157) 191 mg/dL 70-110 H Lab Interpretation (test code = Abnormal 89693-9) [facility] GLUCOSE (AUTOMATED)2020-08-22 13:50:00 Test Item Value Reference Range Interpretation Comments POCT GLU (test code = 8983236831) 174 mg/dL 70-110 H Lab Interpretation (test code = Abnormal 57627-8) [facility] HospitalURINE [id number] 12:59:00 Test Item Value Reference Range Interpretation Comments URINE CULTURE (test No aerobic growth (< code = 630-4) 1000 CFU/mL) [facility] with Fkeriqtfjspy5671-08-55 11:28:00 Test Item Value Reference Range Interpretation Comments WBC (test code = See_Comment [Automated 6690-2) message] The sy stem which generated this result transmitted reference range : 4.20 - 10.70 10*3/?L. The reference range was not used to interpret this result as normal/abnormal . RBC (test code = See_Comment L [Automated 219-8) message] The sy stem which generated this [...] RDW-SD (test code = 42.5 fL 38.5-51.6 00860-2) RDW-CV (test code = 14.5 % 12.1-15.4 788-0) PLT (test code = See_Comment H [Automated 777-3) message] The sy stem which generated this result transmitted reference range : 150 - 328 10*3/ ?L. The reference r torito was not used to interpret this result as normal/abnormal . MPV (test code = 8.0 fL 9.8-13 L 90481-5) NRBC/100 WBC (test See_Comment [Automat ed code = 5149384260) message] The system which generated this result transmitted reference range : 0.0 - 10.0 /100 WBCs. The refer ence range was not u sed to interpret th is result as normal/abnormal . NRBC x10^3 (test code <0.01 See_Comment [Auto mated = 7886839799) message] The s ystem which generated this result transmitted reference range : 10*3/?L. The reference range was not used to interpret this result as normal/abnormal . GRAN MAT (NEUT) % 69.1 % (test code = 770-8) IMM GRAN % (test code 2.20 % = 5550558264) LYMPH % (test code = 20.9 % 736-9) MONO % (test code = 5.8 % 5905-5) EOS % (test code = 1.0 % 713-8) BASO % (test code = 1.0 % 706-2) GRAN MAT x10^3(ANC) 6.51 10*3/uL 1.99-6.95 (test code = 3168940043) IMM GRAN x10^3 (test 0.21 10*3/uL 0-0.06 H code = 2823870697) LYMPH x10^3 (test code 1.97 10*3/uL 1.09-3.23 = 731-0) MONO x10^3 (test code 0.55 10*3/uL 0.36-1.02 = 742-7) EOS x10^3 (test code = 0.09 10*3/uL 0.06-0.53 711-2) BASO x10^3 (test code 0.09 10*3/uL 0.01-0.09 = 704-7) BASO STIPPLING (test Present A code = 703-9) BANDS (test code = Increased A 6900573526) TOXIC CHANGES (test Present A code = 803-7) Lab Interpretation Abnormal (test code = 01733-4) [facility] Metabolic Panel (NA, K, CL, CO2, GLUCOSE, BUN, CREATININE, CA)2020-08-22 11:12:00 Test Item Value Reference Range Interpretation Comments NA (test code = 135 mmol/L 135-145 6261224137) K (test code = 3.6 mmol/L 3.5-5 0384926595) CL (test code = 99 mmol/L 98-108 3318338811) CO2 TOTAL (test code = 31 mmol/L 23-31 1037660780) AGAP (test code = 2-16 9355002505) BUN (test code = 9 mg/dL 7-23 1356109965) GLUCOSE (test code = 198 mg/dL 70-110 H 3439828581) CREATININE (test code = 0.72 mg/dL 0.6-1.25 3718954427) CALCIUM (test code = 8.3 mg/dL 8.6-10.6 L 9922245579) eGFR Calculation mL/min/1.73m2 (Non-) (test code = 0249116296) eGFR Calculation mL/min/1.73m2 () (test code = 5842195334) JAMES (test code = JAMES) Association of [...] tests). Lab Interpretation Abnormal (test code = 00542-7) [facility] HospitalMagnesium Jjakh6189-35-81 11:12:00 Test Item Value Reference Range Interpretation Comments MAGNESIUM (test code = 4410436957) 2.0 mg/dL 1.7-2.4 Lab Interpretation (test code = Normal 97864-6) [facility] HospitalLipid Panel (Total Cholesterol, Triglycerides, HDL) - Xlhpkce4630-01-23 11:12:00 Test Item Value Reference Range Interpretation Comments CHOL (test code = 155 mg/dL 120-200 6258114052) HDL (test code = 42 mg/dL >40 8220886624) HDLC RATIO (test code = See_Comment [Au tomated message] 8663637101) The system [employer] generated this result transmit ronan reference range : <=5.0. The refe rence range was not u sed to interpret th is result as normal/abnormal . TRIG (test code = 186 mg/dL 30-170 H 4256910255) LDL CHOL (test code = 76 mg/dL See_Comment [Auto mated message] 73085-6) The system [employer] generated this result transmit ronan reference range : <=160. The refe rence range was not u sed to interpret th is result as normal/abnormal . VLDL (test code = 37 mg/dL 5-60 4386529159) Lab Interpretation (test Abnormal code = 15783-0) [facility] HospitalHEPATIC FUNCTION PANEL (21662) (ALB,T.PRO,BILI T,BU/BC,ALT,AST,ALK PHOS)2020-08-22 11:12:00 Test Item Value Reference Range Interpretation Comments TOTAL BILI (test code = 1516187408) 0.6 mg/dL 0.1-1.1 BILI UNCON (test code = 9770761974) 0.2 mg/dL 0.1-1.1 BILI CONJ (test code = 6024896064) 0.0 mg/dL 0-0.3 T PROTEIN (test code = 4861300185) 6.0 g/dL 6.3-8.2 L ALBUMIN (test code = 2625103596) 2.8 g/dL 3.5-5 L ALK PHOS (test code = 9920572289) 222 U/L 34-122 H ALTv (test code = 1742-6) 27 U/L 5-50 AST(SGOT) (test code = 1531544368) 30 U/L 13-40 Lab Interpretation (test code = Abnormal 25334-0) [facility] GLUCOSE (AUTOMATED)2020-08-22 10:11:00 Test Item Value Reference Range Interpretation Comments POCT GLU (test code = 0131321972) 196 mg/dL 70-110 H Lab Interpretation (test code = Abnormal 19033-0) [facility] GLUCOSE (AUTOMATED)2020-08-22 07:15:00 Test Item Value Reference Range Interpretation Comments POCT GLU (test code = 7986579104) 183 mg/dL 70-110 H Lab Interpretation (test code = Abnormal 86750-0) [facility] GLUCOSE (AUTOMATED)2020-08-22 02:30:00 Test Item Value Reference Range Interpretation Comments POCT GLU (test code = 8994154623) 295 mg/dL 70-110 H Lab Interpretation (test code = Abnormal 60127-6) [facility] GLUCOSE (AUTOMATED)2020-08-21 23:46:00 Test Item Value Reference Range Interpretation Comments POCT GLU (test code = 8681812938) 258 mg/dL 70-110 H Lab Interpretation (test code = Abnormal 77961-2) [facility] HospitalC-REACTIVE [id number] 18:50:00 Test Item Value Reference Range Interpretation Comments CRP (test code = 7968559231) 15.5 mg/dL <0.8 H Lab Interpretation (test code = Abnormal 19020-1) [facility]PO[facility] (AUTOMATED)2020-08-21 18:21:00 Test Item Value Reference Range Interpretation Comments POCT GLU (test code = 1577911588) 297 mg/dL 70-110 H Lab Interpretation (test code = Abnormal 50031-8) [facility] HospitalETHANOL2020-11-09 16:24:00 Test Item Value Reference Range Interpretation Comments ALCOHOL (test code = <10 mg/dL 3095324601) JAMES (test code = Toxic Greater than or JAMES) equal to 80 mg/dL. NOTE: Whole blood values are approximately 10% to 15% lower than serum and plasma. [facility] HospitalGAL/CLC ONLY - URINE DRUG (IMMUNOASSAY) - 4 ER [id number] 15:36:00 Test Item Value Reference Range Interpretation Comments AMPHET (test code = Negative Negative 8619215383) Cocaine Metabolite (test Negative Negative code = 4319765541) OPIATES (test code = Presumptive Positive Negative A 6695032967) THC (test code = Negative Negative 2827535521) JAMES (test code = JAMES) Urine Drug Cutoff Ranges Amphetamine: ? 1,000 ng/mLCocaine: ? 150 ng/mLOpiates: ? 300 ng/mLCannabinoids: ?50 ng/mL The results are to be used only for medical (i.e., treatment) purposes. Unconfirmed screening results must not be used for non-medical purposes (e.g., employment testing, legal testing). Lab Interpretation (test Abnormal code = 64753-1) [facility] ONLY - SYPHILIS IGG/DVW4625-06-62 15:04:00 Test Item Value Reference Range Interpretation Comments Syphilis IgG/IgM (test Non-reactive Non-reactive code = 76172-1) JAMES (test code = JAMES) Non-reactive - No serologic evidence of T. pallidum infection. Cannot exclude incubating or early syphilis. Submit a second specimen in 2-4 weeks if syphilis is clinically suspected. Equivocal - Further testing to follow. Reactive - Further testing to follow. Lab Interpretation (test Normal code = 24578-8) [facility] HospitalUrinalysis2020-11-09 14:52:00 Test Item Value Reference Range Interpretation Comments APPEARANCE (test code = Clear Clear 4931738120) COLOR (test code = Yellow Yellow 8985147775) PH (test code = 4.8-8.0 4630251854) SP GRAVITY (test code = 1.003-1.030 9620399262) GLU U QUAL (test code = 500 mg/dL Normal A 2252737315) BLOOD (test code = Negative Negative 0291750128) KETONES (test code = 20 mg/dL Negative A 2425410587) PROTEIN (test code = Negative Negative 2887-8) UROBILIN (test code = Normal Normal 4923313548) BILIRUBIN (test code = Negative Negative 0811801293) NITRITE (test code = Negative Negative 0002411291) LEUK RYAN (test code = Negative Negative 4691136888) RBC/HPF (test code = <1 See_Comment [Autom ated message] 6819835428) The system [employer] generated this result transmit ronan reference range : 0 - 3 HPF. The refe rence range was not u sed to interpret th is result as normal/abnormal . WBC/HPF (test code = See_Comment [Autom ated message] 0730124220) The system [employer] generated this result transmit ronan reference range : 0 - 5 HPF. The refe rence range was not u sed to interpret th is result as normal/abnormal . BACTERIA (test code = Negative Negative 9356747362) MUCOUS (test code = Slight Negative LPF A 3236793365) Lab Interpretation (test Abnormal code = 19080-4) [facility] HospitalACTIVATED PARTIAL THRMPLAS [id number] 13:45:00 Test Item Value Reference Range Interpretation Comments APTT Patient (test code = See_Comment [ Automated message] 3173-2) The system [employer] generated this result transmitted ref erence range: 26 - 36 Seconds. The re ference range was not u sed to interpret this result as normal/abnor mal. Lab Interpretation (test Normal code = 25725-7) [facility] HospitalPOCT GLUCOSE (AUTOMATED)2020-08-21 13:45:00 Test Item Value Reference Range Interpretation Comments POCT GLU (test code = 0789768122) 246 mg/dL 70-110 H Lab Interpretation (test code = Abnormal 78352-2) [facility] WITH [id number] 12:32:00 Test Item Value Reference Range Interpretation Comments HIV Negative Negative Semi-quantitative (test code = 65732-8) JAMES (test code = Non-reactive for HIV-1 JAMES) antigen and HIV-1/HIV-2 antibodies. ?No laboratory evidence of HIV infection. ?Repeat in 2-4 weeks if acute HIV infection is suspected. [facility] WITH [id number] 12:18:00 Test Item Value Reference Range Interpretation Comments WBC (test code = See_Comment [Automated 0190-2) message] The sy stem which generated this [...] RDW-SD (test code = 44.4 fL 38.5-51.6 53082-8) RDW-CV (test code = 14.5 % 12.1-15.4 788-0) PLT (test code = See_Comment H [Automated 777-3) message] The sy stem which generated this result transmitted reference range : 150 - 328 10*3/ ?L. The reference r torito was not used to interpret this result as normal/abnormal . MPV (test code = 8.5 fL 9.8-13 L 04570-0) NRBC/100 WBC (test See_Comment [Automat ed code = 7410427513) message] The system which generated this result transmitted reference range : 0.0 - 10.0 /100 WBCs. The refer ence range was not u sed to interpret th is result as normal/abnormal . NRBC x10^3 (test code <0.01 See_Comment [Auto mated = 9344921159) message] The s ystem which generated this result transmitted reference range : 10*3/?L. The reference range was not used to interpret this result as normal/abnormal . GRAN MAT (NEUT) % 90.4 % (test code = 770-8) IMM GRAN % (test code 1.30 % = 2361764176) LYMPH % (test code = 7.1 % 736-9) MONO % (test code = 0.5 % 5905-5) EOS % (test code = 0.1 % 713-8) BASO % (test code = 0.6 % 706-2) GRAN MAT x10^3(ANC) 7.74 10*3/uL 1.99-6.95 H (test code = 7705252473) IMM GRAN x10^3 (test 0.11 10*3/uL 0-0.06 H code = 9637764303) LYMPH x10^3 (test code 0.61 10*3/uL 1.09-3.23 L = 731-0) MONO x10^3 (test code 0.04 10*3/uL 0.36-1.02 L = 742-7) EOS x10^3 (test code = <0.03 0.06-0.53 L 711-2) BASO x10^3 (test code 0.05 10*3/uL 0.01-0.09 = 704-7) POLYCHROMASIA (test 2+ See_Comment [Automa ronan code = 69396-2) message] The system which generated this result transmitted reference range : 2+. The referen ce range was not u sed to interpret th is result as normal/abnormal . BANDS (test code = Increased A 8464163597) Lab Interpretation Abnormal (test code = 00327-5) [facility]PROCALCITONIN2020-11-09 11:48:00 Test Item Value Reference Range Interpretation Comments Procalcitonin (test 0.36 ng/mL <0.07 H code = 6365949760) JAMES (test code = JAMES) INTERPRETATION OF [...] lung abscess/empyema. For further information please refer to:[email or web address] Lab Interpretation Abnormal (test code = 85995-8) [facility] HospitalLAMOATE [id number] 10:53:00 Test Item Value Reference Range Interpretation Comments LDH (test code = 4442667773) 351 U/L 300-600 Lab Interpretation (test code = Normal 10566-8) [facility] HospitalSEDIMENTATION [id number] 10:07:00 Test Item Value Reference Range Interpretation Comments ESR (test code = See_Comment H [Automated message] 7177559629) The system [employer] generated this result transmitted ref erence range: 0 - 10 m m/HR. The reference r torito was not used to interpret this result as normal/abnor mal. Lab Interpretation (test Abnormal code = 26491-4) [facility] HospitalPOM[facility] GLUCOSE (AUTOMATED)2020-08-21 09:45:00 Test Item Value Reference Range Interpretation Comments POCT GLU (test code = 6222355690) 287 mg/dL 70-110 H Lab Interpretation (test code = Abnormal 97478-5) [facility] HospitalGlycosylated Hemoglobin (A1C)2020-08-21 09:29:00 Test Item Value Reference Range Interpretation Comments HGB A1C (test code = 4548-4) 9.8 % 4-6 H Lab Interpretation (test code = Abnormal 57478-6) [facility] HospitalCOVID-19 (ID NOW RAPID TESTING)2020-08-21 09:13:00 Test Item Value Reference Range Interpretation Comments SARS-CoV-2 Rapid ID NOW Not Detected Not Detected (test code = 96592-2) JAMES (test code = JAMES) ID NOW COVID-19 Assay is an isothermal nucleic acid amplification test intended for the qualitative detection of nucleic acid from SARS-CoV-2 viral RNA in nasopharyngeal (NOTCHING MACHINE OPERATOR) specimens. It is used under Emergency Use [...] indicated. Lab Interpretation Normal (test code = 24791-0) [facility] HospitalProthrombin Time / [id number] 08:59:00 Test Item Value Reference Range Interpretation Comments PROTIME PATIENT (test See_Comment H [Auto mated message] code = 5964-2) The system [employer] generated this result transmitted ref erence range: 10.1 - 1 2.6 Seconds. The reference range was not used to int erpret this result as normal/abnormal . INR (test code = 6301-6) Nor mal INR <1.1; Warfarin Therap eutic range 2.0 to 3. 0 or 2.5 to 3.5, dep ending upon the indica tions. Lab Interpretation (test Abnormal code = 80586-6) [facility] HospitalaPTT2020-11-09 08:59:00 Test Item Value Reference Range Interpretation Comments APTT Patient (test code = See_Comment [ Automated message] 3173-2) The system [employer] generated this result transmitted ref erence range: 26 - 36 Seconds. The re ference range was not u sed to interpret this result as normal/abnor mal. Lab Interpretation (test Normal code = 91498-6) [facility] HospitalBASI METABOLIC PANEL (NA, K, CL, CO2, GLUCOSE, BUN, CREATININE, CA)2020-08-21 08:52:00 Test Item Value Reference Range Interpretation Comments NA (test code = 136 mmol/L 135-145 3934223197) K (test code = 4.3 mmol/L 3.5-5 3208866707) CL (test code = 104 mmol/L 98-108 3332606091) CO2 TOTAL (test code = 24 mmol/L 23-31 9575265606) AGAP (test code = 2-16 8450284801) BUN (test code = 8 mg/dL 7-23 8689363102) GLUCOSE (test code = 308 mg/dL 70-110 H 9949710024) CREATININE (test code = 0.72 mg/dL 0.6-1.25 7420665781) CALCIUM (test code = 7.8 mg/dL 8.6-10.6 L 6875599857) eGFR Calculation mL/min/1.73m2 (Non-) (test code = 4418786576) eGFR Calculation mL/min/1.73m2 () (test code = 9125397759) JAMES (test code = JAMES) Association of [...] tests). Lab Interpretation Abnormal (test code = 76317-1) [facility] HospitalHEPATIC FUNCTION PANEL (08204) (ALB,T.PRO,BILI T,BU/BC,ALT,AST,ALK PHOS)2020-08-21 08:52:00 Test Item Value Reference Range Interpretation Comments TOTAL BILI (test code = 0108740163) 0.8 mg/dL 0.1-1.1 BILI UNCON (test code = 5518072153) 0.3 mg/dL 0.1-1.1 BILI CONJ (test code = 4914644386) 0.0 mg/dL 0-0.3 T PROTEIN (test code = 8336423843) 5.7 g/dL 6.3-8.2 L ALBUMIN (test code = 5038391828) 2.7 g/dL 3.5-5 L ALK PHOS (test code = 1824747039) 245 U/L 34-122 H ALTv (test code = 1742-6) 37 U/L 5-50 AST(SGOT) (test code = 5265707789) 43 U/L 13-40 H Lab Interpretation (test code = Abnormal 22882-5) [facility]
[2021-12-03 09:00] LABS: Absolute Lymphocytes (CBC) 1.6 K/uL (0.7-4.9); Lymphocytes % 17.2 % (15.3-44.8); MPV 6.6 fL (7.6-11.3); RBC Red Blood Cell Count 4.64 M/uL (4.33-5.43)
[2021-12-03] MEDS ORDERED: METOPROLOL TAR 50 MG TAB ONE (09:02)
[2021-12-03] MEDS ORDERED: METOPROLOL TARTRATE 5 MG/5 ML INJ IV ONE (09:02)
[2021-12-03] MEDS ORDERED: FAMOTIDINE 20 MG/2 ML VIAL IV ONE (09:02)
[2021-12-03] MEDS ORDERED: NA CHLORIDE 0.9% 1,000 ML ONE (09:02)
[2021-12-03 09:03] LABS: Protime INR 1.12
[2021-12-03] MEDS ORDERED: ONDANSETRON 4 MG/2 ML VIAL ONE ×2 (09:08→11:49)
[2021-12-03] MEDS ORDERED: HYDROMORPHONE HCL 1 MG/ML INJ ONE ×3 (09:08→22:16)
[2021-12-03 09:35] LABS: ALT/SGPT 71 U/L (12-78); AST/SGOT 29 U/L (15-37); Albumin 3.1 g/dL (3.4-5.0); Alkaline Phosphatase 226 U/L (45-117); BUN Blood Urea Nitrogen 8 mg/dL (7-18); Bicarbonate 25 mmol/L (21-32); Bilirubin Direct 0.3 mg/dL (0-0.2); Bilirubin Total 0.8 mg/dL (0.2-1.0); Glucose Level 190 mg/dL (74-106); Lipase 20 U/L (73-393); Magnesium 1.9 mg/dL (1.8-2.4); NT PRO-BNP 1649 pg/mL (<125); Potassium 3.7 mmol/L (3.5-5.1); Sodium Level 139 mmol/L (136-145)
--- NOTE | 2021-12-03 09:43 | RAD REPORT ---
EXAM DESCRIPTION: US - Extrem Venous W Compress Otis - 12/03/2021 9:34 am CLINICAL HISTORY: PAIN COMPARISON: DVT study 11/02/2021 TECHNIQUE: Real-time sonographic evaluation of the bilateral lower extremity common femoral, superfi cial femoral, popliteal and posterior tibial veins was performed. FINDINGS: Normal compressibility, flow augmentation, phasic flow and spontaneous flow are identified in the left and right lower extremity common femoral, superficial femoral, popliteal and posterior t ibial veins. No intraluminal filling defects seen. IMPRESSION: No DVT in either lower extremity.
[2021-12-03] MEDS ORDERED: ENOXAPARIN 100 MG/ML SYR SQ ONE (10:00)
--- NOTE | 2021-12-03 10:27 | RAD REPORT ---
EXAM DESCRIPTION: RAD - Chest Single View - 12/03/2021 10:03 am CLINICAL HISTORY: COUGH COMPARISON: Portable 03/11/2021 TECHNIQUE: AP portable chest image was obtained 12/03/2021 10:03 am . FINDINGS: Lung volumes are low. No peripheral mass consolidation. Interstitial pattern is prominent but not different. Severity could mask minimal interstitial edema or infiltrate. Heart and vasculatur e are normal. No measurable pleural effusion and no pneumothorax. No acute bony abnormality seen. No acute aortic findings suspected. IMPRESSION: No acute cardiopulmonary process. No significant change from comparison study.
--- NOTE | 2021-12-03 10:28 | RAD REPORT ---
EXAM DESCRIPTION: RAD - Pelvis - 12/03/2021 10:03 am CLINICAL HISTORY: PAIN COMPARISON: Pelvis dated 11/02/2021 TECHNIQUE: AP imaging of the pelvis was obtained. FINDINGS: Bowel gas pattern is nonspecific. No obstruction, free air or pneumatosis evident. No abno rmal dilatation of the rectum suspected. Lumbar degenerative changes are present. Degenerative change seen to the bilateral hip joints. No acu te proximal femur finding. SI joints and sacral ala are grossly normal but too obscured by overlying bowel content for full assessment. IMPRESSION: Significant bilateral hip joint degenerative change with no acute proximal femur finding . No abnormal stool volume in the rectum. No significant change from November 02 imaging.
--- NOTE | 2021-12-03 11:27 | ER ---
Nurse's Notes [facility] Name: Kiel Ngo Age: 71 yrs Sex: Male : 1950 Arrival Date: 12/03/2021 Time: 08:12 Bed 27 Private MD: Diagnosis: Tachycardia, unspecified;Weakness;Paroxysmal atrial fibrillation-history of;Diastolic (congestive) heart failure Presentation: 12/03 08:12 Chief complaint: Patient states: right hip pain "for days", poor appetite due to pain, eo2 dilaudid 4mg taken at home for chronic groin pain isn't helping. 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 Coronavirus screen: Vaccine status: Patient reports being unvaccinated. Client denies travel out of the [place] in the last 14 days. Ebola Screen: Patient negative for fever greater than or equal to 101.5 degrees Fahrenheit, and additional compatible Ebola Virus Disease symptoms Patient denies exposure to infectious person. Patient denies travel to an Ebola-affected area in the 21 days before illness onset. Initial Sepsis Screen: Does the patient meet any 2 criteria? HR > 90 bpm. No. Patient's initial sepsis screen is negative. Does the patient have a suspected source of infection? No. Patient's initial sepsis screen is negative. Risk Assessment: Do you want to hurt yourself or someone else? Patient reports no desire to harm self or others. Onset of symptoms is unknown. 08:12 Method Of Arrival: EMS: [facility] eo2 08:12 Acuity: JOZEF 2 eo2 Triage Assessment: 08:17 General: Appears unkempt, Behavior is cooperative. Pain: Complains of pain in Right hip.eo2 Historical: - Allergies: 08:16 Demerol; eo2 08:16 metformin; eo2 08:16 Morphine; eo2 - PMHx: 08:16 chronic back pain; neuropathy; Atrial fibrillation; eo2 - PSHx: 08:16 back sx; eo2 08:17 R. Ankle SX; PANCREAS SX; eo2 - Immunization history:: Adult Immunizations not up to date, Client reports having NOT received the Covid vaccine. - Social history:: Smoking status: Patient denies any tobacco usage or history of. Screenin:18 Abuse screen: Denies threats or abuse. Denies injuries from another. Nutritional eo2 screening: No deficits noted. Tuberculosis screening: No symptoms or risk factors identified. Fall Risk Fall in past 12 months (25 points). Gait- Impaired (20 pts.). Assessment: 08:18 General: Appears unkempt, Behavior is cooperative. Pain: Complains of pain in right eo2 hip/groin. Neuro: Level of Consciousness is awake, alert, obeys commands, Oriented to person, place, time, situation, Denies dizziness, headache. Cardiovascular: Denies chest pain, shortness of breath, Capillary refill < 3 seconds Patient's skin is warm and dry. Rhythm is sinus tachycardia. Respiratory: Airway is patent Trachea midline Respiratory effort is even, unlabored, Respiratory pattern is regular, symmetrical, Breath sounds are clear bilaterally. Denies shortness of breath. GI: Abdomen is round Bowel sounds present X 4 quads. Reports nausea, vomiting, loss of appetite. Musculoskeletal: Reports pain in right hip/groin bedbound. 11:42 Reassessment: pt reports worsening pain and nausea, received order for dilaudid 1mg IV eo2 push once and zofran 4mg IV push once from Dr. Banerjee, orders placed, will carry out. Vital Signs: 08:12 BP 148 / 99; Pulse 149; Resp 18; Temp 98.3; Pulse Ox 95% ; Weight 88.45 kg; Height 5 eo2 ft. 11 in. (180.34 cm); Pain 10/10; 09:28 BP 159 / 88; Pulse 152; Resp 17; Pulse Ox 96% ; Pain 10/10; eo2 10:07 BP 148 / 89; Pulse 105; Resp 16; Pulse Ox 94% ; Pain 9/10; eo2 11:00 BP 156 / 78; Pulse 115; Resp 15; Pulse Ox 95% ; eo2 08:12 Body Mass Index 27.20 (88.45 kg, 180.34 cm) eo2 ED Course: 08:12 Patient arrived in ED. eo2 08:12 Cecilia Cosme, DIEGO is Primary Nurse. eo2 08:14 Stu Banerjee MD is Attending Physician. chetan 08:16 Triage completed. eo2 08:18 Patient has correct armband on for positive identification. socket puller on. Pulse eo2 ox on. NIBP on. Door closed. Warm blanket given. Pillow given. 08:18 No provider procedures requiring assistance completed. Inserted saline lock: 20 gauge eo2 in left hand, using aseptic technique. ,using aseptic technique. 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 08:22 Arm band placed on. eo2 09:34 US Extremity Venous W Compression Otis In Process Unspecified. EDMS 09:42 SARS-COV-2 RT PCR (Document "Date of Onset" if Symptomatic) Sent. eo2 09:42 XRAY Chest (1 view) Sent. eo2 10:03 XRAY Chest (1 view) In Process Unspecified. EDMS 10:03 Pelvis XRAY In Process Unspecified. EDMS 11:26 Tonja Lyle MD is Hospitalizing Provider. chetan Administered Medications: 09:06 CANCELLED (Duplicate Order): NS 0.9% 500 ml IV at bolus once chetan 09:33 Drug: Lopressor (metoprolol) 5 mg Route: IVP; Site: left hand; eo2 10:33 Follow up: Response: No adverse reaction eo2 09:36 Drug: NS 0.9% 1000 ml Route: IV; Rate: 125 ml/hr; Site: left hand; eo2 10:36 Follow up: Response: No adverse reaction; IV Status: Completed infusion; IV Intake: eo2 1000ml 09:37 Drug: Pepcid (famotidine) 20 mg Route: IVP; Site: left hand; eo2 10:37 Follow up: Response: No adverse reaction eo2 09:38 Drug: Dilaudid (HYDROmorphone) 1 mg Route: IVP; Site: left hand; eo2 10:36 Follow up: Response: No adverse reaction; Pain is decreased eo2 09:38 Drug: Zofran (Ondansetron) 4 mg Route: IVP; Site: left hand; eo2 10:36 Follow up: Response: No adverse reaction; Nausea is decreased eo2 09:40 Drug: Lopressor (metoprolol TARTRATE) 50 mg Route: PO; eo2 10:40 Follow up: Response: No adverse reaction eo2 10:04 Drug: Lovenox (enoxaparin) 90 mg Route: Sub-Q; Site: abdomen; eo2 11:00 Follow up: Response: No adverse reaction eo2 11:50 Drug: Zofran (Ondansetron) 4 mg Route: IVP; Site: left hand; eo2 13:00 Follow up: Response: No adverse reaction eo2 11:50 Drug: Dilaudid (HYDROmorphone) 1 mg Route: IVP; Site: left hand; eo2 13:00 Follow up: Response: No adverse reaction; Pain is decreased eo2 Intake: 10:36 IV: 1000ml; Total: 1000ml. eo2 Outcome: 11:27 Decision to Hospitalize by Provider. [facility] 12/04 10:49 Patient left the ED. Signatures: Dispatcher [employer] EDStu Allen MD MD cha Smirch, Shelby RN RN Cecilia Cosme RN RN eo2
--- NOTE | 2021-12-03 11:28 | EDPHYS ---
Physician Documentation [facility] Name: Kiel Ngo Age: 71 yrs Sex: Male : 1950 Arrival Date: 12/03/2021 Time: 08:12 Bed 27 Private MD: LAURIE Physician Stu Banerjee HPI: 12/03 08:48 This 71 yrs old Male presents to ER via EMS with complaints of Hip Pain. chetan 08:48 The patient or guardian reports pain. that occurred at an unknown site. The complaints chetan affect the right hip. Onset: The symptoms/episode began/occurred 3 day(s) ago. Modifying factors: The symptoms are alleviated by remaining still, the symptoms are aggravated by any movement. Associated signs and symptoms: Loss of consciousness: the patient experienced no loss of consciousness. The patient has experienced similar episodes in the past, multiple times. Historical: - Allergies: 08:16 Demerol; eo2 08:16 metformin; eo2 08:16 Morphine; eo2 - PMHx: 08:16 chronic back pain; neuropathy; Atrial fibrillation; eo2 - PSHx: 08:16 back sx; eo2 08:17 R. Ankle SX; PANCREAS SX; eo2 - Immunization history:: Adult Immunizations not up to date, Client reports having NOT received the Covid vaccine. - Social history:: Smoking status: Patient denies any tobacco usage or history of. ROS: 08:51 Constitutional: Negative for fever, chills, and weight loss, Eyes: Negative for injury, chetan pain, redness, and discharge, ENT: Negative for injury, pain, and discharge, Neck: Negative for injury, pain, and swelling, Respiratory: Negative for shortness of breath, cough, wheezing, and pleuritic chest pain, Abdomen/GI: Negative for abdominal pain, nausea, vomiting, diarrhea, and constipation, Back: Negative for injury and pain, : Negative for injury, bleeding, discharge, and swelling, Skin: Negative for injury, rash, and discoloration, Neuro: Negative for headache, weakness, numbness, tingling, and seizure, Psych: Negative for depression, anxiety, suicide ideation, homicidal ideation, and hallucinations, Allergy/Immunology: Negative for hives, rash, and allergies, Endocrine: Negative for neck swelling, polydipsia, polyuria, polyphagia, and marked weight changes, Hematologic/Lymphatic: Negative for swollen nodes, abnormal bleeding, and unusual bruising. 08:51 Cardiovascular: Positive for palpitations. 08:51 MS/extremity: Positive for decreased range of motion, pain, of the right leg. Exam: 08:51 Constitutional: This is a well developed, well nourished patient who is awake, alert, chetan and in no acute distress. Head/Face: Normocephalic, atraumatic. Eyes: Pupils equal round and reactive to light, extra-ocular motions intact. Lids and lashes normal. Conjunctiva and sclera are non-icteric and not injected. Cornea within normal limits. Periorbital areas with no swelling, redness, or edema. ENT: Nares patent. No nasal discharge, no septal abnormalities noted. Tympanic membranes are normal and external auditory canals are clear. Oropharynx with no redness, swelling, or masses, exudates, or evidence of obstruction, uvula midline. Mucous membranes moist. Neck: Trachea midline, no thyromegaly or masses palpated, and no cervical lymphadenopathy. Supple, full range of motion without nuchal rigidity, or vertebral point tenderness. No Meningismus. Chest/axilla: Normal chest wall appearance and motion. Nontender with no deformity. No lesions are appreciated. Respiratory: Lungs have equal breath sounds bilaterally, clear to auscultation and percussion. No rales, rhonchi or wheezes noted. No increased work of breathing, no retractions or nasal flaring. Abdomen/GI: Soft, non-tender, with normal bowel sounds. No distension or tympany. No guarding or rebound. No evidence of tenderness throughout. Back: No spinal tenderness. No costovertebral tenderness. Full range of motion. Male : Normal genitalia with no discharge or lesions. Skin: Warm, dry with normal turgor. Normal color with no rashes, no lesions, and no evidence of cellulitis. MS/ Extremity: Pulses equal, no cyanosis. Neurovascular intact. Full, normal range of motion. Neuro: Awake and alert, GCS 15, oriented to person, place, time, and situation. Cranial nerves II-XII grossly intact. Motor strength 5/5 in all extremities. Sensory grossly intact. Cerebellar exam normal. Normal gait. Psych: Awake, alert, with orientation to person, place and time. Behavior, mood, and affect are within normal limits. 08:51 Cardiovascular: Rate: tachycardic, Rhythm: regular, Pulses: Pulses are 4+ in bilateral radial, brachial, femoral, popliteal, posterior tibial and and dorsalis pedis arteries.. Heart sounds: normal, Edema: is not appreciated, JVD: is not appreciated. 08:51 ECG was reviewed by the Attending Physician. 11:28 ECG was reviewed by the Attending Physician. chetan Vital Signs: 08:12 BP 148 / 99; Pulse 149; Resp 18; Temp 98.3; Pulse Ox 95% ; Weight 88.45 kg; Height 5 eo2 ft. 11 in. (180.34 cm); Pain 10/10; 09:28 BP 159 / 88; Pulse 152; Resp 17; Pulse Ox 96% ; Pain 10/10; eo2 10:07 BP 148 / 89; Pulse 105; Resp 16; Pulse Ox 94% ; Pain 9/10; eo2 11:00 BP 156 / 78; Pulse 115; Resp 15; Pulse Ox 95% ; eo2 08:12 Body Mass Index 27.20 (88.45 kg, 180.34 cm) eo2 MDM: 08:14 Patient medically screened. chetan 08:55 Differential diagnosis: hip fracture, intertrochanteric fracture, femoral neck chetan fracture, bursitis, arthritis. Data reviewed: vital signs, nurses notes, lab test result(s), EKG, radiologic studies, CT scan, plain films. Data interpreted: hall monitor: rate is 149 beats/min, rhythm is regular. 12/03 08:48 Order name: Basic Metabolic Panel; Complete Time: 11: [facility] 12/03 08:48 Order name: CBC with Diff; Complete Time: 09:15 [facility] 12/03 08:48 Order name: LFT's; Complete Time: 11:02 [facility] 12/03 08:48 Order name: Magnesium; Complete Time: 11: [facility] 12/03 08:48 Order name: NT PRO-BNP; Complete Time: 11: [facility] 12/03 08:48 Order name: PT-INR; Complete Time: 09:15 [facility] 12/03 08:48 Order name: Troponin HS; Complete Time: 11:02 [facility] 12/03 08:48 Order name: TSH; Complete Time: 11: [facility] 12/03 08:48 Order name: SARS-COV-2 RT PCR (Document "Date of Onset" if Symptomatic) [facility] 12/03 08:48 Order name: Lipase; Complete Time: 11:02 chetan 12/03 15:47 Order name: Comprehensive Metabolic Panel EDMS 12/03 15:47 Order name: Comprehensive Metabolic Panel EDMS 12/03 15:47 Order name: Magnesium EDMS 12/03 15:47 Order name: Magnesium EDMS 12/03 08:48 Order name: XRAY Chest (1 view); Complete Time: 11:02 [facility] 12/03 08:51 Order name: US Extremity Venous W Compression [place]; Complete Time: 11:02 chetan 12/03 09:12 Order name: Pelvis XRAY; Complete Time: 11:02 [facility] 12/03 15:48 Order name: NT PRO-BNP EDMS 12/03 15:48 Order name: NT PRO-BNP EDMS 12/03 15:48 Order name: Phosphorus EDMS 12/03 15:48 Order name: Phosphorus EDMS 12/03 15:48 Order name: Echo with Doppler EDMS 12/03 15:48 Order name: Echo with Doppler EDMS 12/03 15:48 Order name: CBC with Automated Diff EDMS 12/03 15:48 Order name: CBC with Automated Diff EDMS 12/03 08:48 Order name: EKG; Complete Time: 08:49 [facility] 12/03 08:48 Order name: Cardiac monitoring; Complete Time: 09:42 [facility] 12/03 08:48 Order name: EKG - Nurse/Tech; Complete Time: 09:42 chetan 12/03 08:48 Order name: IV Saline Lock; Complete Time: 09:42 [facility] 12/03 08:48 Order name: Labs collected and sent; Complete Time: 09:42 [facility] 12/03 08:48 Order name: O2 Per Protocol; Complete Time: 09:42 [facility] 12/03 08:48 Order name: O2 Sat Monitoring; Complete Time: 09:42 [facility] 12/03 11:03 Order name: EKG; Complete Time: 11:04 [facility] 12/03 11:03 Order name: EKG - Nurse/Tech; Complete Time: 11:38 [facility] 12/03 15:47 Order name: CONS Physician Consult EDWI 12/03 15:48 Order name: Heart Healthy EDMS EC:51 Rate is 141 beats/min. Rhythm is regular. QRS [place] is Normal. NV interval is normal. chetan QRS interval is normal. QT interval is normal. No Q waves. T waves are Normal. No ST changes noted. Clinical impression: No evidence of ischemia. Interpreted by me. Reviewed by me. 11:28 Rate is 115 beats/min. Rhythm is regular. QRS [place] is Normal. NV interval is normal. chetan QRS interval is normal. QT interval is normal. No Q waves. T waves are Normal. No ST changes noted. Clinical impression: Sinus tachycardia and No evidence of ischemia. Interpreted by me. Reviewed by me. Administered Medications: 09:06 CANCELLED (Duplicate Order): NS 0.9% 500 ml IV at bolus once chetan 09:33 Drug: Lopressor (metoprolol) 5 mg Route: IVP; Site: left hand; eo2 10:33 Follow up: Response: No adverse reaction eo2 09:36 Drug: NS 0.9% 1000 ml Route: IV; Rate: 125 ml/hr; Site: left hand; eo2 10:36 Follow up: Response: No adverse reaction; IV Status: Completed infusion; IV Intake: eo2 1000ml 09:37 Drug: Pepcid (famotidine) 20 mg Route: IVP; Site: left hand; eo2 10:37 Follow up: Response: No adverse reaction eo2 09:38 Drug: Dilaudid (HYDROmorphone) 1 mg Route: IVP; Site: left hand; eo2 10:36 Follow up: Response: No adverse reaction; Pain is decreased eo2 09:38 Drug: Zofran (Ondansetron) 4 mg Route: IVP; Site: left hand; eo2 10:36 Follow up: Response: No adverse reaction; Nausea is decreased eo2 09:40 Drug: Lopressor (metoprolol TARTRATE) 50 mg Route: PO; eo2 10:40 Follow up: Response: No adverse reaction eo2 10:04 Drug: Lovenox (enoxaparin) 90 mg Route: Sub-Q; Site: abdomen; eo2 11:00 Follow up: Response: No adverse reaction eo2 11:50 Drug: Zofran (Ondansetron) 4 mg Route: IVP; Site: left hand; eo2 13:00 Follow up: Response: No adverse reaction eo2 11:50 Drug: Dilaudid (HYDROmorphone) 1 mg Route: IVP; Site: left hand; eo2 13:00 Follow up: Response: No adverse reaction; Pain is decreased eo2 Disposition Summary: 12/03/21 11:27 Hospitalization Ordered Hospitalization Status: Observation chetan Provider: Tonja Lyle cha Condition: Fair chetan Problem: new chetan Symptoms: have improved chetan Bed/Room Type: Standard chetan Location: [facility] ER HOLD(12/03/21 13:13) iw Room Assignment: ERHOLD-(12/03/21 13:13) iw Diagnosis - Tachycardia, unspecified chetan - Weakness chetan - Paroxysmal atrial fibrillation - history of chetan - Diastolic (congestive) heart failure chetan Forms: - Medication Reconciliation Form chetan - SBAR form chetan Signatures: Dispatcher [employer] EDMS Stu Banerjee MD MD cha Williams, Irene RN RN iw Cecilia Cosme RN RN eo2 Corrections: (The following items were deleted from the chart) 09:06 08:48 NS 0.9% 500 ml IV at bolus once ordered. chetan chetan 13:13 11:27 Telemetry/MedSurg (Inpatient) chetan iw 13:13 11:27 chetan iw
[2021-12-03] MEDS ORDERED: ACETAMINOPHEN 500 MG TAB PO PRN (15:44)
[2021-12-03] MEDS ORDERED: ENOXAPARIN 40 MG/0.4 ML SQ ONE (17:00)
[2021-12-03 18:08] VITALS: BMI 27.1
[2021-12-03] MEDS ORDERED: clonazePAM 0.5 MG TAB ONE (20:24)
[2021-12-03] MEDS: clonazePAM 0.5 MG TAB PO SCH (20:40)
--- NOTE | 2021-12-03 22:12 | P.HP ---
Certification for Inpatient Patient admitted to: Observation With expected LOS: <2 Midnights Practitioner: I am a practitioner with admitting privileges, knowledge of patient current condition, hospital course, and medical plan of care. Services: Services provided to patient in accordance with Admission requirements found in Title 42 Section 412.3 of the Code of Federal Regulations Patient History Date of Service: 12/03/21 Reason for admission: Atrial fibrillation and abdominal pain History of Present Illness: Patient is a 71-year-old gentleman who has been in and out of the hospital on the arms occasions who comes into the emergency room with abdominal discomfort. Patient is on chronic pain medication. He takes Dilaudid and tizanidine. Patient's heart rate was elevated. Initially, heart rate was 150s. Currently, heart rate is stable. Patient is clinically doing well. Pain is better. Patient is normally bed down an comes into the hospital repeatedly. His and his stepdaughter takes care of him. He has a motorized wheelchair. The motorized wheelchair helps him get around. However, over the last few months he has only been in the bed mainly. Patient came into the emergency room for further evaluation. Allergies meperidine HCl [From Demerol] Allergy (Severe, Verified 11/17/18 00:49) Anaphylaxis metformin Allergy (Intermediate, Verified 11/17/18 00:49) Anaphylaxis Clindamycin Allergy (Uncoded 11/17/18 00:49) Unknown Home Medications: Hydromorphone [Dilaudid*] 4 mg PO Q6H 03/11/21 Tizanidine HCl [Zanaflex] 4 mg PO DAILY 03/11/21 clonazePAM [Clonazepam] 0.5 mg PO BID 03/11/21 hydrOXYzine HCL [Atarax*] 25 mg PO BID 03/11/21 Docusate [Colace Cap*] 100 mg PO DAILY #20 cap 03/13/21 Fluconazole [Diflucan] 100 mg PO DAILY #10 tablet 03/13/21 Glucerna Shake [Glucerna*] 237 ml PO BID #100 can 03/13/21 Valentín [Valentín*] 1 pkt PO BID #60 powd.pack 03/13/21 Metoprolol Tartrate [Lopressor*] 50 mg PO BID #60 tab 03/13/21 Minocycline HCl 100 mg PO DAILY #10 capsule 03/13/21 Nystatin Powder [Mycostatin (Powder)*] 1 appl TOP BID #1 btl 03/13/21 Sulfamethoxazole/Trimethoprim [Bactrim Ds Tablet] 1 each PO DAILY #7 tablet 03/13/21 Hydromorphone HCl [Dilaudid] 4 mg PO TID 12/03/21 - Past Medical/Surgical History Diabetic: No -: IDDM -: ANXIETY -: AFIB -: Osteoarthritis -: Pancreatitis -: Lymphedema -: Chronic pain -: 3 foot surgeries -: PATRICIA knee surgery -: R shoulder surgery -: 3 back surgeries -: CHOLECYSTECTOMY Psychosocial/ Personal History: Lives at home with his - Family History Father Medical History: Other (see notes) Notes: dementia Mother Medical History: Other (see notes) Notes: Gallstones - Social History Smoking Status: Never smoker Alcohol use: No CD- Drugs: No Caffeine use: No Review of Systems 10-point ROS is otherwise unremarkable Physical Examination - Vital Signs Temperature: 98.7 F Blood Pressure: 162/83 Pulse: 94 Respirations: 17 Pulse Ox (%): 95 - Physical Exam General: Alert, In no apparent distress, Oriented x3 HEENT: Atraumatic, PERRLA, Mucous membr. moist/pink, EOMI, Sclerae nonicteric Neck: Supple, 2+ carotid pulse no bruit, No LAD, Without JVD or thyroid abnormality Respiratory: Clear to auscultation bilaterally, Normal air movement Cardiovascular: Regular rate/rhythm, Normal S1 S2, No murmurs Gastrointestinal: Normal bowel sounds, Soft and benign, Non-distended, Tenderness Musculoskeletal: No clubbing, No swelling, No tenderness Integumentary: No rashes Neurological: Normal speech, Normal tone, Sensation intact, Cranial nerves 3-12 intact, Abnormal gait, Abnormal strength - Studies Laboratory Data (last 24 hrs) 12/03/21 08:52: PT 12.9 H, INR 1.12 12/03/21 08:52: WBC 9.30, Hgb 12.9 L, Hct 39.0 L, Plt Count 349 12/03/21 08:52: Sodium 139, Potassium 3.7, BUN 8, Creatinine 0.75, Glucose 190 H, Magnesium 1.9 D, Total Bilirubin 0.8, AST 29, ALT 71, Alkaline Phosphatase 226 H, Lipase 20 L Assessment & Plan - Problems (Diagnosis) (1) Abdominal pain Current Visit: Yes Status: Acute (2) Atrial fibrillation with rapid ventricular response Current Visit: Yes Status: Acute (3) Dyspnea Onset Date: 10/31/14 Current Visit: No Status: Acute (4) Diabetes mellitus Onset Date: 10/31/14 Current Visit: No Status: Chronic - Plan Plan: 1. Pain control 2. Continue medication for rate control 3. Continue medication for anti coagulation 4. Continue muscle relaxant 5. Home health with physical therapy 6. GI and DVT prophylaxis Discharge Plan: Home Plan to discharge in: 24 Hours - Advance Directives Does patient have a Living Will: No Does patient have a Durable POA for Healthcare: Yes - Code Status/Comfort Care Code Status Assessed: Yes Code Status: Full Code Critical Care: No Time Spent Managing PTS Care (In Minutes): 45
[2021-12-03] MEDS ORDERED: METOPROLOL TARTRATE 5 MG/5 ML INJ IV PRN (22:15)
[2021-12-03] MEDS: HYDROMORPHONE HCL 1 MG/ML INJ IV PRN (22:37)
[2021-12-04] MEDS: HYDROMORPHONE HCL 1 MG/ML INJ IV PRN ×2 (02:42→06:43)
[2021-12-04] MEDS ORDERED: HYDROMORPHONE HCL 1 MG/ML INJ ONE ×2 (02:42→06:38)
[2021-12-04 03:14] LABS: Absolute Lymphocytes (CBC) 2.1 K/uL (0.7-4.9); Hematocrit 38.3 % (39.6-49.0); Lymphocytes % 27.8 % (15.3-44.8); MPV 6.8 fL (7.6-11.3); RBC Red Blood Cell Count 4.57 M/uL (4.33-5.43)
[2021-12-04 03:36] LABS: ALT/SGPT 59 U/L (12-78); AST/SGOT 20 U/L (15-37); Alkaline Phosphatase 193 U/L (45-117); BUN Blood Urea Nitrogen 8 mg/dL (7-18); Bicarbonate 28 mmol/L (21-32); Bilirubin Total 0.8 mg/dL (0.2-1.0); Glucose Level 146 mg/dL (74-106); NT PRO-BNP 2959 pg/mL (<125); Phosphorus 2.2 mg/dL (2.5-4.9); Protein, Total 6.6 g/dL (6.4-8.2); Sodium Level 137 mmol/L (136-145)
[2021-12-04] MEDS ORDERED: POTASS/SODIUM PHOSPHATE 1 PKT POWD.PACK ONE ×2 (05:24→09:17)
[2021-12-04] MEDS: POTASS/SODIUM PHOSPHATE 1 PKT POWD.PACK PO SCH ×3 (05:54→09:21)
[2021-12-04] MEDS ORDERED: FUROSEMIDE 20 MG/ 2ML VIAL IV SCH ×2 (06:00→09:00)
[2021-12-04] MEDS ORDERED: METOPROLOL TAR 50 MG TAB PO SCH ×3 (06:00→09:00)
[2021-12-04] MEDS ORDERED: TIZANIDINE 4 MG TABLET PO SCH (06:00)
--- NOTE | 2021-12-04 07:25 | EKG ---
Test Date: 2021-12-03 Test Time: 11:17:21 Cross Tie Tram Loader: EO MEASUREMENT RESULTS: Intervals: Rate: 115 AK: 162 QRSD: 72 QT: 324 QTc: 448 [place]: P: 35 AK: 162 QRS: -4 T: 5 INTERPRETIVE STATEMENTS: Sinus tachycardia with fusion complexes Possible Left atrial enlargement Low voltage QRS Inferior infarct, age undetermined Abnormal ECG Compared to ECG 08/28/2021 08:13:15 Fusion complex(es) now present Low QRS voltage now present Myocardial infarct finding now present Sinus rhythm no longer present Prolonged QT interval no longer present Electronically Signed On 12-04-21 07:22:44 [employer] by Ned Allen
--- NOTE | 2021-12-04 07:26 | EKG ---
Test Date: 2021-12-03 Test Time: 08:44:22 Yam Curer: KATHY MEASUREMENT RESULTS: Intervals: Rate: 141 MA: QRSD: 76 QT: 360 QTc: 551 [place]: P: MA: QRS: 1 T: 48 INTERPRETIVE STATEMENTS: Supraventricular tachycardia Low voltage QRS Inferior infarct, age undetermined Abnormal ECG Compared to ECG 08/28/2021 08:13:15 Low QRS voltage now present Myocardial infarct finding now present Sinus rhythm no longer present Prolonged QT interval no longer present Electronically Signed On 12-04-21 07:22:48 DIRECTOR PACKAGING by Ned Allen
[2021-12-04] MEDS ORDERED: JUVEN PACKET PO SCH (09:00)
[2021-12-04] MEDS ORDERED: GLUCERNA SHAKE 237 ML CAN PO SCH (09:00)
[2021-12-04] MEDS ORDERED: DOCUSATE NA 100 MG CAP PO SCH (09:00)
[2021-12-04] MEDS ORDERED: ENOXAPARIN 40 MG/0.4 ML SQ SCH ×2 (09:00)
[2021-12-04] MEDS ORDERED: ENOXAPARIN 40 MG/0.4 ML SQ ONE (09:17)
[2021-12-04] MEDS ORDERED: FUROSEMIDE 20 MG/ 2ML VIAL ONE (09:17)
[2021-12-04] MEDS ORDERED: clonazePAM 0.5 MG TAB ONE (09:17)
[2021-12-04] MEDS ORDERED: METOPROLOL TAR 50 MG TAB ONE (09:17)
[2021-12-04] MEDS: clonazePAM 0.5 MG TAB PO SCH (09:21)
[2021-12-04 09:23] VITALS: BP 102/53
[2021-12-04 09:36] VITALS: TEMP 97; O2SAT 95
== END 2021-12-04 10:33 | disposition home health service (06) ==
LOC: ER 07:59 → ERHOLD 15:45 → INTOOBSV 15:45
PROVIDERS: ADMIT Hospitalist; ATTEND Hospitalist
DX: R10.9 Unspecified abdominal pain (principal); I48.91 Unspecified atrial fibrillation; R06.00 Dyspnea, unspecified; E11.9 Type 2 diabetes mellitus without complications; G89.29 Other chronic pain; K85.90 Acute pancreatitis without necrosis or infection, unspecified; M19.90 Unspecified osteoarthritis, unspecified site; I89.0 Lymphedema, not elsewhere classified; F41.9 Anxiety disorder, unspecified; Z99.3 Dependence on wheelchair; Z88.3 Allergy status to other anti-infective agents; Z88.6 Allergy status to analgesic agent; Z88.8 Allergy status to other drugs, medicaments and biological substances; Z90.49 Acquired absence of other specified parts of digestive tract; Z20.822 Contact with and (suspected) exposure to COVID-19; Z82.49 Family history of ischemic heart disease and other diseases of the circulatory system
CPT/HCPCS: 96361; 93005 ×2; 85025 ×2; 80048; 36415; 83735 ×2; 84100; 85610; 80076; 84443; 84484; 83690; 80053; 83880 ×2; 71045; 72170; 93970; 96375; 96372; 96374; 99284; U0003; J1940; J1650 ×2; J1170 ×5; J7030; J2405 ×2; G0378 ×3

== ENCOUNTER 2021-12-10 08:28 | Emergency (ER) | payer OTHER ==
--- OUTSIDE RECORDS SUMMARY | 2021-12-10 08:35 | XMS REPORT | Continuity of Care Document ---
:1950 Author Organization [facility] t Address [address] [place] [address] Dr. Ling[address] [place] [address] Care Team Providers Name Role Phone Edy Samanta Primary Care Physician CECILIO WASHINGTON Attending Clinician Unavailable GIRISH Attending Clinician Unavailable Girish VILLAREAL Attending Clinician ZAKI Attending Clinician Unavailable Yolis VILLAREAL, H Attending Clinician Lorraine CORTEZ Attending Clinician Singer WATTS Attending Clinician Hunter VILLAREAL, Kassie Attending Clinician Nilda Kauffman MD Attending Clinician Attending Clinician Unavailable Doctor Unassigned, Name Attending Clinician Unavailable Wilder VILLAREAL, K.H. Attending Clinician Eliot VILLAREAL Attending Clinician Cecilio Washington MD Attending Clinician Kika Gallardo MD Attending Clinician KIKA GALLARDO Admitting Clinician Unavailable Hunter VILLAREAL, Kassie Admitting Clinician Kika Gallardo MD Admitting Clinician Payers Payer Name Policy Type Policy Number Effective Date Expiration Date S ource MEDICARE PART A [id number] 2007 \\T\\ B 00:00:00 [employer] INDEMNITY [id number] 2016 00:00:00 MEDICARE PART A [id number] 2014 \\T\\ B - MEDICARE 00:00:00 INDEMNITY/TRADITIO [id number] 1315-04-03 NAL CHOICE - [employer] 00:00:00 Problems Condition [...] Active U nivers 2-04 ity of 00:00: 00 Medical Branch Rash Rash Disease Active 2019- Univers 1-09 ity of 00:00: [place] 00 Medical Branch Allergies, Adverse Reactions, Alerts Allergy Allergy Status Severity Reaction(s) Onset Inactive Treating Comm ents Source Name Type Date Date Clinician Bailey Propensi Active Rash 2020- Univers ty to 1-10 ity of adverse 00:00: [place] reaction 00 Medical s Branch PEACH DRUG Active Rash 2019- Univers INGREDI 1-10 ity of 00:00: [place] 00 Medical Branch Lidocain Drug Active Itching 2019- Univers e Allergy - ity of 00:00: [place] 00 Medical Branch LIDOCAIN DRUG Active ITCHING 2020- Univers E INGREDI -09 ity of 00:00: [...] 3-16 ity of 00:00: [place] 00 [facility] Branch GLIMEPIR DRUG Active Hives Univers EFREN INGREDI 3-16 ity of 00:00: [place] 00 Medical Branch METFORMI DRUG Active ITCHING Univers N INGREDI 3-16 ity of 00:00: [place] 00 Medical Branch Social History Social Habit Start Date Stop Date Quantity Comments Source Exposure to Not sure [place] of SARS-CoV-2 [facility] (event) Branch History of Chews Tobacco University of tobacco use [facility] History SDOH 2020-11-17 2020-11-17 5 University o f Financial 00:00:00 00:00:00 [facility] History [facility] Food 2020-11-17 2020-11-17 1 Univers ity of Worry 00:00:00 00:00:00 [facility] History [facility] Food 2020-11-17 2020-11-17 1 Univers ity of Scarcity 00:00:00 00:00:00 [facility] History [facility] 2020-11-17 2020-11-17 1 University o f Transport Med 00:00:00 00:00:00 [facility] al Branch History [facility] 2020-11-17 2020-11-17 1 University o f Transport Non-Med 00:00:00 00:00:00 [facility] edical Branch Education 2020-11-16 2020-11-16 21 [place] of 00:00:00 00:00:00 [facility] Alcohol intake 2020-11-16 2020-11-16 Ex-drinker [place] of 00:00:00 00:00:00 (finding) [facility] Tobacco use and 2020-08-21 2020-08-21 Former user Universi ty of exposure 00:00:00 00:00:00 [facility] Tobacco Comment 2020-08-21 2020-08-21 quit 10 years Univer sity of 00:00:00 00:00:00 ago, started in [place] Med ical 2nd year of Branch college (~40 years) Alcohol Comment 2020-08-21 2020-08-21 Used to have 2-3 Uni versity of 00:00:00 00:00:00 six-packs of [place] Medica l beer daily x 20 Branch years, quit 2005 History [facility] 2020-08-21 2020-08-21 99 University o f Alcohol Frequency 00:00:00 00:00:00 [place] M edical Branch History SDWA 2020-08-21 2020-08-21 99 [place] o f Alcohol Std 00:00:00 00:00:00 [place] Medical Drinks Branch History SDWA 2020-08-21 2020-08-21 99 University o f Alcohol Binge 00:00:00 00:00:00 [place] Medic al Branch Sex [birth year] Universit y of 00:00:00 00:00:00 [place] Medical [place] Smoking Status Start Date Stop Date Source Never smoker [facility] Branch Medications Ordered Filled Start Stop Current Ordering [...] by ity of tablet 16:47: mouth at [place] 18 bedtime. Medical Branch HYDROmorpho Yes 4mg [...] 0845, Until Discontinu ed, Routine amLODIPine Yes [id number] 10mg Take 1 Univers 10 mg 3-07 tablet by ity of tablet 00:00: mouth [place] 00 daily. Medical Branch clotrimazol Yes [id number] Apply to Univers e 1 % 3-07 face/ears, ity of topical 00:00: armpits, [place] cream 00 pannus and Medical back/any Branch other rash twice a day fluocinonid 0 Yes [id number] Apply to Univers e 0.05 % 3-07 scalp ity of solution 00:00: twice a [place] 00 day Medical Branch triamcinolo 0 Yes [id number] Apply to Univers ne 3-07 back, ity of acetonide 00:00: armpits [place] 0.1 % cream 00 and other Med ical affected Branch areas twice daily, please mix with clotrimazo le hydrOXYzine 0 Yes [id number] 10mg Take 1 Univers 10 mg 3-07 tablet by ity of tablet 00:00: mouth 2 00 (two) Medical times Branch daily. amLODIPine Yes [id number] 10mg Take 1 Univers 10 mg 3-07 tablet by ity of tablet 00:00: mouth 00 daily. Medical Branch clotrimazol 0 Yes [id number] Apply to Univers e 1 % 3-07 face/ears, ity of topical 00:00: armpits, [place] cream 00 pannus and Medical back/any Branch other rash twice a day fluocinonid 0 Yes [id number] Apply to Univers e 0.05 % 3-07 scalp ity of solution 00:00: twice a day Medical Branch triamcinolo Yes [id number] Apply to Univers ne 3-07 back, ity of acetonide 00:00: armpits [place] 0.1 % cream 00 and other Med ical affected Branch areas twice daily, please mix with clotrimazo le hydrOXYzine Yes [id number] 10mg Take 1 Univers 10 mg 3-07 tablet by ity of tablet 00:00: mouth 2 (two) Medical times Branch daily. amLODIPine Yes [id number] 10mg Take 1 Univers 10 mg 3-07 tablet by ity of tablet 00:00: mouth 00 daily. Medical Branch clotrimazol 0 Yes [id number] Apply to Univers e 1 % 3-07 face/ears, ity of topical 00:00: armpits, [place] cream 00 pannus and Medical back/any Branch other rash twice a day fluocinonid 2020-0 Yes [id number] Apply to Univers e 0.05 % 3-07 scalp ity of solution 00:00: twice a [place] 00 day Medical Branch triamcinolo 2020-0 Yes [id number] Apply to Univers ne 3-07 back, ity of acetonide 00:00: armpits [place] 0.1 % cream 00 and other Med ical affected Branch areas twice daily, please mix with clotrimazo le hydrOXYzine Yes [id number] 10mg Take 1 Univers 10 mg 3-07 tablet by ity of tablet 00:00: mouth 2 [place] 00 (two) Medical times Branch daily. amLODIPine Yes [id number] 10mg Take 1 Univers 10 mg 3-07 tablet by ity of tablet 00:00: mouth [place] 00 daily. Medical Branch clotrimazol Yes [id number] Apply to Univers e 1 % 3-07 face/ears, ity of topical 00:00: armpits, [place] cream 00 pannus and Medical back/any Branch other rash twice a day fluocinonid Yes [id number] Apply to Univers e 0.05 % 12-17 scalp ity of solution 00:00: twice a [place] 00 day Medical Branch triamcinolo Yes [id number] Apply to Univers ne 3-07 back, ity of acetonide 00:00: armpits [place] 0.1 % cream 00 and other Med ical affected Branch areas twice daily, please mix with clotrimazo le hydrOXYzine Yes [id number] 10mg Take 1 Univers 10 mg 3-07 tablet by ity of tablet 00:00: mouth 2 [place] 00 (two) Medical times Branch daily. cephALEXin 2020-2020- No [id number] 500mg Take 1 Univers 500 mg -04 14- capsule by ity of capsule 00:00: 05:59 mouth [place] 00 :00 every 6 Medical (six) Branch hours for 3 days. cephALEXin 2020-0 2020- No [id number] 500mg Take 1 Univers 500 mg 3-04 14-11 capsule by ity of capsule 00:00: 05:59 mouth [place] 00 :00 every 6 Medical (six) Branch hours for 3 days. hydrOXYzine 2020-2020- No [id number] 10mg Take 1 Univers 10 mg 3-04 [...] 4 mg, Slow Un toi injection 4 12-16-06 IV Push, ity of mg 11:15: 10:58 [...] IV [place] 500 mL 00 :00 Piggyback, [facility] ONCE, 1 Branch dose, Fri12/15/20 at 1000, STAT HYDROmorpho Yes 4mg 4 mg, Unive rs ne 12-15 Oral, BID, ity of (DILAUDID) 15:30: First dose [place] tablet 4 mg 00 (after Medica l last Branch modificati on) on Fri12/15/20 at 0930, Until Discontinu ed, Routine amLODIPine 2020- No [id number] 10mg Take 1 Univers 10 mg 12-15 tablet by ity of tablet 00:00: 00:00 mouth [place] 00 :00 daily. Medical Branch HYDROmorpho No 1mg 1 mg, Univ ers ne 12-14 Oral, ity of (DILAUDID) 17:35: 15:18 Q6HPRN, [place] tablet 1 mg 30 :06 Starting Medi [facility] 12/14/20 Branch at 1135, Until Fri12/15/20 at 0918, Routine, Pain (scale 7-10) hydrOXYzine Yes 10mg 10 mg, [facility] ers (ATARAX) 12-14 Oral, BID, ity o f tablet 10 17:30: First dose [place] mg 00 on [facility] 12/14/20 at Branch 1130, Until Discontinu ed, Routine lisinopriL Yes 5mg 5 mg, Univer s (PRINIVIL,Z 12-14 Oral, ity of ESTRIL) 17:30: DAILY, [place] tablet 5 mg 00 First dose Me dical on [facility] 12/14/20 at 1130, Until Discontinu ed, Routine triamcinolo 2020- No [id number] Apply to [place] [facility] 12-14 back, ity of acetonide 00:00: 00:00 armpits [place] 0.1 % cream 00 :00 and other Med ical affected Branch areas twice daily, please mix with clotrimazo le clotrimazol 2020- No [id number] Apply to Univers e 1 % 12-14 face/ears, ity of topical 00:00: 00:00 armpits, [place] cream 00 :00 pannus and Medical back/any Branch other rash twice a day fluocinonid 2020- No [id number] Apply to Univers e 0.05 % 12-14 scalp ity of solution 00:00: 00:00 twice a [place] 00 :00 day Medical Branch hydrOXYzine 2020- No [id number] 10mg Take 1 Univers 10 mg 12-14 [...] 1 [place] mg 00 :00 dose, [facility] 12/12/20 at Branch 2145, Routine insulin Yes 15U 15 Units, Unive rs glargine 12-12 Subcutaneo ity o f (LANTUS 15:00: us, DAILY, [place] U-100) 00 First dose Medical injection on [facility] 15 Units 12/12/20 at 0900, Until Discontinu ed hydrOXYzine 2020- No 10mg 10 mg, Uni vers (ATARAX) 12-12 03-02 Oral, ity of tablet 10 08:15: 07:33 ONCE, 1 [place] mg 00 :00 dose, [facility] 12/12/20 at Branch 0215, Routine mirtazapine Yes 7.5mg 7.5 mg, Un toi (REMERON) 3-02 Oral, QHS, ity of tablet 7.5 03:00: First dose [place] mg 00 on [facility] 12/11/20 at Branch 2100, Until Discontinu ed, Routine venlafaxine Yes 300mg 300 mg, Un toi XR (EFFEXOR 3-02 Oral, QHS, it y of XR) 24 hr 03:00: First dose [place] capsule 300 00 on [facility] Medica l mg 12/11/20 at Branch [...] mg 00 First dose Medical on Fri [place] 12/11/20 at 1700, Until Discontinu ed, Routine [...] at 1300, Until Discontinu ed, Routine ceFAZolin 0 2020- No 1000mg 1,000 mg, Univers (ANCEF) [...] ed, Routine insulin Yes 5U 5 Units, [facility] s lispro 12-11 Subcutaneo ity of (human) 18:00: us, TID [place] (HumaLOG 00 MEALS, Medical U-100) First dose Branch injection 5 on [facility] Units 12/11/20 at 1200, Until Discontinu ed Polyethylen Yes 17g 17 g, [facility] rs e Glycol 12-11 Oral, ity of 3350 17:47: [id number], [place] (MIRALAX) 05 Starting Medica l powder 17 g 12/11/20 Br anch at 1147, Until Discontinu ed, Routine, Constipati on acetaminoph Yes 650mg 650 mg, Un toi en 12-11 Oral, ity of (TYLENOL) 16:51: Q6HPRN, [place] tablet 650 28 Starting Medic al mg 12/11/20 Branch at 1051, Until Discontinu ed, Routine, Pain (scale 1-3) FENTanyl PF 2020- No 75ug 75 mcg, Un toi (SUBLIMAZE [...]
Duration of therapy: 72 hours sennosides- Yes [id number] 1{tbl} Take [address] [facility] docusate 2-09 tablet by ity of sodium 00:00: mouth 2 [place] 8.6-50 mg 00 (two) Medical per tablet times Branch daily. hydrocortis Yes [id number] Apply to [facility] one 2.5 % 11-21 affected ity of cream 00:00: area(s) 2 [place] 00 (two) Medical times Branch daily. blood sugar Yes [id number] Use to [facility] diagnostic 2 check ity of (FREESTYLE 00:00: blood [place] LITE 00 glucose Medical STRIPS) 4-5 times Branch strip daily. Polyethylen Yes [id number] 17g Take 1 Univers e Glycol 2-09 Packet by ity of 3350 17 00:00: mouth [place] gram powder 00 every 24 Medi jose c (twenty-fo Branch ur) hours as needed for Constipati on. sennosides- Yes [id number] 1{tbl} Take 1 Univers docusate 2-09 tablet by ity of sodium 00:00: mouth 2 [place] 8.6-50 mg 00 (two) Medical per tablet times Branch daily. hydrocortis 2020-0 Yes [id number] Apply to Univers one 2.5 % 2-09 affected ity of cream 00:00: area(s) 2 [place] 00 (two) Medical times Branch daily. blood sugar 2020-0 Yes [id number] Use to Univers diagnostic 11-21 check ity of (FREESTYLE 00:00: blood [place] LITE 00 glucose Medical STRIPS) 4-5 times Branch strip daily. Polyethylen 2020-0 Yes [id number] 17g Take 1 Univers e Glycol 2-09 Packet by ity of 3350 17 00:00: mouth [place] gram powder 00 every 24 Medi jose c (twenty-fo Branch ur) hours as needed for Constipati on. sennosides- 2020-0 Yes [id number] 1{tbl} Take 1 Univers docusate 2-09 tablet by ity of sodium 00:00: mouth 2 [place] 8.6-50 mg 00 (two) Medical per tablet times Branch daily. hydrocortis 2020-0 Yes [id number] Apply to Univers one 2.5 % 2-09 affected ity of cream 00:00: area(s) 2 [place] 00 (two) Medical times Branch daily. blood sugar 2020-0 Yes [id number] Use to [facility] diagnostic 11-21 check ity of (FREESTYLE 00:00: blood [place] LITE 00 glucose Medical STRIPS) 4-5 times Branch strip daily. Polyethylen 2020-0 Yes [id number] 17g Take 1 Univers e Glycol 2-09 Packet by ity of 3350 17 00:00: mouth [place] gram powder 00 every 24 Medi jose c (twenty-fo Branch ur) hours as needed for Constipati on. sennosides- 2020-0 Yes [id number] 1{tbl} Take 1 Univers docusate 2-09 tablet by ity of sodium 00:00: mouth 2 [place] 8.6-50 mg 00 (two) Medical per tablet times Branch daily. hydrocortis 2020-0 Yes [id number] Apply to Univers one 2.5 % 2-09 affected ity of cream 00:00: area(s) 2 [place] 00 (two) Medical times Branch daily. blood sugar Yes [id number] Use to [facility] diagnostic 11-21 check ity of (FREESTYLE 00:00: blood [place] LITE 00 glucose Medical STRIPS) 4-5 times Branch strip daily. Polyethylen Yes [id number] 17g Take 1 Univers e Glycol 11-21 Packet by ity of 3350 17 00:00: mouth [place] gram powder 00 every 24 Medi jose c (twenty-fo Branch ur) hours as needed for Constipati on. Insulin 2020- No [id number] 15U inject 15 Univers Glargine 11-21 Units ity of (LANTUS 00:00: 05:59 under the [place] SOLOSTAR 00 :00 skin every Medic al U-100 morning Branch INSULIN) for 30 100 unit/mL days. (3 mL) injection venlafaxine 2020- No [id number] 150mg Take 1 Univers XR 150 mg 11-21 capsule by ity of 24 hr 00:00: 05:59 mouth 3 [place] capsule 00 :00 (three) Medical times Branch daily for 30 days. Insulin 2020- No [id number] 15U inject 15 Univers Glargine 11-21 Units ity of (LANTUS 00:00: 05:59 under the [employer] SOLOSTAR 00 :00 skin every Medic al U-100 morning Branch INSULIN) for 30 100 unit/mL days. (3 mL) injection venlafaxine 2020- No [id number] 150mg Take 1 Univers XR 150 mg 11-21 capsule by ity of 24 hr 00:00: 05:59 mouth 3 [place] capsule 00 :00 (three) Medical times Branch daily for 30 days. triamcinolo 2020- No [id number] Apply to [facility] ne 11-21 area(s) 2 ity of acetonide 00:00: 00:00 (two) [place] 0.1 % cream 00 :00 times Medical daily. Branch cephALEXin 2020- No [id number] 1000mg Take 2 Univers 500 mg 11-21 capsules ity of capsule 00:00: 00:00 by mouth 3 [place] 00 :00 (three) Medical times Branch daily. doxycycline 2020- No [id number] 100mg Take 1 Univers hyclate 100 11-21 capsule by i ty of mg capsule 00:00: 00:00 mouth [place] 00 :00 every 12 Medical (twelve) Branch hours. lactobacill 2020- No [id number] 1{tbl} Take 1 Univers us 11-21 tablet by ity of acidophilus 00:00: 00:00 mouth 2 [place] 25 million 00 :00 (two) Medical cell -100 times Branch mg captab daily. bisacodyL 2020- No [id number] 10mg Insert 1 Univers 10 mg 11-21 Suppositor ity of suppository 00:00: 00:00 y into [place] 00 :00 rectum at Medical bedtime as Branch needed for Constipati on. ALPRAZolam 2020- No [id number] .25mg Take 1 Univers (XANAX) 11-21 tablet by ity of 0.25 mg 00:00: 00:00 mouth 2 [place] tablet 00 :00 (two) Medical times Branch daily. hydrOXYzine 2020- No [id number] 20mg Take 2 Univers 10 mg 11-21 [...] capsule 36 times Medical daily. Branch Insulin 2020-1 Yes 15U inject 15 Unive rs Glargine [...] of (LANTUS 01:13: under the [place] SOLOSTKS) 36 skin. Medical 100 unit/mL Branch (3 mL) InPn INSULIN 2019-10 Yes 5U inject 5 Univer s ASPART 1-12 Units ity of (NOVOLOG 01:13: under the [facility] s FLEXPEN SC) 36 skin. Medical Branch ALPRAZolam 2019-10 Yes .25mg Take 0.25 U nivers (XANAX) 1-12 mg by ity of 0.25 mg 01:13: mouth 2 [place] tablet 36 (two) Medical times Branch daily. HYDROmorpho 2019-10 Yes 4mg Take 4 mg U nivers ne 4 mg 1-12 by mouth 2 ity of tablet 01:13: (two) [place] 36 times Medical daily. Branch HYDROMORPHO 2019-10 [...] of (LANTUS 01:13: under the [place] SOLOSTKS) 36 skin. Medical 100 unit/mL Branch (3 mL) In INSULIN 2019- Yes 5U inject 5 Univer s ASPART 1-12 Units ity of (NOVOLOG 01:13: under the [facility] FLEXPEN [place]) 36 skin. Medical Branch ALPRAZolam [...] Units ity of (LANTUS 01:13: under the [facility]) 36 skin. Medical 100 unit/mL Branch (3 mL) In INSULIN 2019- Yes 5U inject 5 Univer s ASPART 1-12 Units ity of (NOVOLOG 01:13: under the [facility] FLEXPEN MO) 36 skin. Medical Branch ALPRAZolam 2019- Yes .25mg Take 0.25 U nivers (XANAX) 1-12 mg by ity of 0.25 mg 01:13: mouth 2 [place] tablet 36 (two) Medical times Branch daily. HYDROmorpho 2019- Yes 4mg Take 4 mg U nivers ne 4 mg 1-12 by mouth 2 ity of tablet 01:13: (two) [place] 36 times Medical daily. Branch HYDROMORPHO 2019- Yes Inject as Univers NE HCL 1-12 [...] Units ity of (NOVOLOG 01:13: under the [facility] s FLEXPEN SC) 36 skin. Medical Branch [...] 34 :00 Medical Branch hydrocortis 2019- Yes [id number] Apply to Univers one 2.5 % 1-11 affected ity of cream 00:00: area(s) 2 [place] (two) Medical times Branch daily. hydrOXYzine 2019-10 Yes [id number] 20mg Take 2 Univers 10 mg 1-11 tablets by ity of tablet 00:00: mouth [place] 00 every 8 Medical (eight) Branch hours as needed for Itching or Anxiety. Polyethylen 2019-10 Yes [id number] 17g Take 1 Univers e Glycol 1-11 Packet by ity of 3350 17 00:00: mouth [place] gram powder 00 every 24 Medi jose c (twenty-fo Branch ur) hours as needed for Constipati on. hydrocortis 2019-10 Yes [id number] Apply to Univers one 2.5 % 1-11 affected ity of cream 00:00: area(s) 2 [place] (two) Medical times Branch daily. hydrOXYzine 2019- Yes [id number] 20mg Take 2 Univers 10 mg 1-11 tablets by ity of tablet 00:00: mouth [place] 00 every 8 Medical (eight) Branch hours as needed for Itching or Anxiety. Polyethylen 2019- Yes [id number] 17g Take 1 Univers e Glycol 1-11 Packet by ity of 3350 17 00:00: mouth [place] gram powder 00 every 24 Medi jose c (twenty-fo Branch ur) hours as needed for Constipati on. hydrocortis 2019- Yes [id number] Apply to Univers one 2.5 % 1-11 affected ity of cream 00:00: area(s) 2 [place] 00 (two) Medical times Branch daily. hydrOXYzine 2019- Yes [id number] 20mg Take 2 Univers 10 mg 1-11 tablets by ity of tablet 00:00: mouth [place] 00 every 8 Medical (eight) Branch hours as needed for Itching or Anxiety. Polyethylen 2020- Yes [id number] 17g Take 1 Univers e Glycol 1-11 Packet by ity of 3350 17 00:00: mouth [place] gram powder 00 every 24 Medi jose c (twenty-fo Branch ur) hours as needed for Constipati on. hydrocortis 2019- Yes [id number] Apply to Univers one 2.5 % 1-11 affected ity of cream 00:00: area(s) 2 [place] 00 (two) Medical times Branch daily. hydrOXYzine 2019- Yes [id number] 20mg Take 2 Univers 10 mg 1-11 tablets by ity of tablet 00:00: mouth [place] 00 every 8 Medical (eight) Branch hours as needed for Itching or Anxiety. Polyethylen 2019- Yes [id number] 17g Take 1 Univers e Glycol 1-11 Packet by ity of 3350 17 00:00: mouth [place] gram powder 00 every 24 Medi jose c (twenty-fo Branch ur) hours as needed for Constipati on. hydrocortis 2019- Yes [id number] Apply to Univers one 2.5 % 1-11 affected ity of cream 00:00: area(s) 2 [place] 00 (two) Medical times Branch daily. hydrOXYzine 2019- Yes [id number] 20mg Take 2 Univers 10 mg 1-11 tablets by ity of tablet 00:00: mouth [place] 00 every 8 Medical (eight) Branch hours as needed for Itching or Anxiety. Polyethylen 2019- Yes [id number] 17g Take 1 Univers e Glycol 1-11 Packet by ity of 3350 17 00:00: mouth [place] gram powder 00 every 24 Medi jose c (twenty-fo Branch ur) hours as needed for Constipati on. hydrocortis 2019- Yes [id number] Apply to Univers one 2.5 % 1-11 affected ity of cream 00:00: area(s) 2 [place] 00 (two) Medical times Branch daily. hydrOXYzine 2019- Yes [id number] 20mg Take 2 Univers 10 mg 1-11 tablets by ity of tablet 00:00: mouth [place] 00 every 8 Medical (eight) Branch hours as needed for Itching or Anxiety. Polyethylen 2020- Yes [id number] 17g Take 1 Univers e Glycol 1-11 Packet by ity of 3350 17 00:00: mouth [place] gram powder 00 every 24 Medi jose c (twenty-fo Branch ur) hours as needed for Constipati on. hydrocortis 2019-10 Yes [id number] Apply to [facility] one 2.5 % 1-11 affected ity of cream 00:00: area(s) 2 [place] 00 (two) Medical times Branch daily. hydrOXYzine 2019-10 Yes [id number] 20mg Take 2 Univers 10 mg 1-11 tablets by ity of tablet 00:00: mouth [place] 00 every 8 Medical (eight) Branch hours as needed for Itching or Anxiety. Polyethylen 2019-10 Yes [id number] 17g Take 1 Univers e Glycol 1-11 Packet by ity of 3350 17 00:00: mouth [place] gram powder 00 every 24 Medi jose c (twenty-fo Branch ur) hours as needed for Constipati on. triamcinolo 2019-10 2020- No [id number] Apply to [facility] 10-23 area(s) 2 ity of acetonide 00:00: 05:59 (two) [place] 0.1 % cream 00 :00 times Medical daily for Branch 14 days. triamcinolo 2019-10 2020- No [id number] Apply to [facility] 10-23 area(s) 2 ity of acetonide 00:00: 05:59 (two) [place] 0.1 % cream 00 :00 times Medical daily for Branch 14 days. triamcinolo 2019-10 2020- No [id number] Apply to [facility] 10-23 area(s) 2 ity of acetonide 00:00: 05:59 (two) [place] 0.1 % cream 00 :00 times Medical daily for Branch 14 days. KCL 2019-10 2020- No 40meq 40 mEq, Univers (KLOR-CON -07 23- Oral, ONCE ity of M20) tablet 16:15: 16:23 NOW, 1 [place] 40 mEq 00 :00 dose, Tu Medical 08/22/20 Branch at 1015, Routine HYDROmorpho 2019-10 Yes 1mg 1 mg, Unive rs ne - Oral, ity of (DILAUDID) 15:07: Q6HPRN, [place] tablet 1 mg 53 Starting Medi jose c Tue Branch 08/22/20 at 0907, Until Discontinu ed, Routine, Pain (scale 7-10) hydrocortis 2019- Yes Topical Uni vers one 2.5 % 1-10 (Apply To ity o f cream 02:00: Affected [place] 00 Areas), Medical BID, First Branch dose on [facility] 08/21/20 at 2000, Until Discontinu ed, Routine triamcinolo 2019- Yes Topical, Un toi ne 1-10 BID, First ity of acetonide 02:00: dose on [place] (TRIDERM) 00 [facility] Medical 0.1 % cream 08/21/20 at Br anch 2000, Until Discontinu ed, Routine hydrOXYzine 2019-10 Yes 20mg 20 mg, Univ ers (ATARAX) 09 Oral, ity of tablet 20 17:39: Q8HPRN, [place] mg 12 Starting Medical [facility] Branch 08/21/20 at 1139, Until Discontinu ed, Routine, Itching, Anxiety sennosides- 2019-10 Yes 1{tbl} 1 tablet, Univers docusate 10-21 Oral, ity of sodium 15:00: DAILY, [place] (SENOKOT-S) 00 First dose Me dical 8.6-50 mg on [facility] Branch per tablet 08/21/20 at 1 tablet 0900, Until Discontinu ed, Routine hydrocortis 2019-10 2020- No Topical Un toi one 1 % 10-21 (Apply To ity of cream 15:00: 22:54 Affected [place] 00 :48 Areas), Medical DAILY, Branch First dose on Fri08/21/20 at 0900, Until Discontinu ed, Routine venlafaxine 2019-10 Yes 150mg 150 mg, Un toi XR (EFFEXOR 09 Oral, TID, it y of XR) 24 hr 14:00: [place] capsule 150 00 on [facility] Medica l mg 08/21/20 at Branch 0800, Until Discontinu ed, Routine heparin 2019- Yes 5000U 5,000 Univers (porcine) -09 Units, ity of injection 14:00: Subcutaneo [place] 5,000 Units 00 us, Q12H, Med ical First dose Branch on [facility] 08/21/20 at 0800, Until Discontinu ed, Routine diphenhydrA 2019-10 2020- No 25mg 25 mg, Uni vers MINE 10-21 Oral, ity of (BENADRYL) 12:56: 17:39 Q8HPRN, [place] tablet 25 59 :43 Starting Medica l mg [facility] 08/21/20 at 0656, Until [facility] 08/21/20 at 1139, Routine, Itching, Mild Rash, Congestion /Allergies , alternate with hydroxyzin e hydrOXYzine 2019-10- No 10mg 10 mg, Uni vers (ATARAX) 10-21 Oral, ity of tablet 10 10:20: 12:57 Q6HPRN, [place] mg 22 :12 Starting [facility] 08/21/20 at 0420, Until [facility] 08/21/20 at 0657, Routine, Itching, Anxiety Sliding 2019-10 Yes Subcutaneo Univ ers Scale 09 us, Q4H, ity of Insulin - 10:00: First dose [place] Aspart 00 (after Medical (NOVOLOG) + last Branch Fsbg modificati Testing on) on [facility] 08/21/20 at 0400, Until Discontinu ed, Routine lidocaine 5 2019-10- No Topical, U nivers % ointment 10-21 ONCE, 1 ity o f 09:30: 09:14 dose, [facility] 00 :00 08/21/20 at [facility] 0330, Branch Routine Polyethylen 2019-10 Yes 17g 17 g, [facility] rs e Glycol 10-21 Oral, ity of 3350 08:29: S18QIBS, [place] (MIRALAX) 09 Starting Medica l powder 17 g [facility] 08/21/20 at 0229, Until Discontinu ed, Routine, Constipati on lanolin 2019-10 Yes Topical, Univer s alcohol-mo- 10-21 PRN, ity of w.pet-ceres 08:26: [place] (EUCERIN) 30 [facility] cream 08/21/20 at Branch 0226, Until Discontinu ed, Routine, Dermatitis /Rash ALPRAZolam 2019-10 Yes .25mg 0.25 mg, Un toi (XANAX) 10-21 Oral, ity of tablet 0.25 08:25: BIDPRN, [place] mg 41 Starting [facility] 08/21/20 at 0225, Until Discontinu ed, Routine, [...] 59 :00 breakfast. Medica l Branch clonazepam 2019-10 2020- No .25mg Take 0.25 Univers (KLONOPIN) 10-21 [...] (scale 1-3) sotalol 2019-10- No [facility] (BETAPACE) 10-21 mouth ity of 240 mg 07:43: 00:00 every 12 [place] tablet 30 :00 (twelve) Medical hours. Branch blood sugar Yes Use to Heavy ers diagnostic 4-25 check ity of (FREESTYLE 00:00: blood [place] LITE 00 glucose Medical STRIPS) 4-5 times Branch strip daily. blood sugar Yes Use to Heavy ers diagnostic -25 check ity of (FREESTYLE 00:00: blood [place] LITE 00 glucose Medical STRIPS) 4-5 times Branch strip daily. blood sugar Yes Use to Heavy ers diagnostic -25 check ity of (FREESTYLE 00:00: blood [place] LITE 00 glucose Medical STRIPS) 4-5 times Branch strip daily. blood sugar Yes Use to Heavy ers diagnostic -25 check ity of (FREESTYLE 00:00: blood [place] LITE 00 glucose Medical STRIPS) 4-5 times Branch strip daily. blood sugar Yes Use to Heavy ers diagnostic -25 check ity of (FREESTYLE 00:00: blood [place] LITE 00 glucose Medical STRIPS) 4-5 times Branch strip daily. blood sugar Yes Use to [facility] ers diagnostic 4-25 check ity of (FREESTYLE [...] 13:00:00 84 mm[Hg] Unive rsity of pressure [facility] Heart rate 2021-08-22 13:00:00 103 /min [facility] Respiratory rate 2021-08-22 13:00:00 18 /min Univ ersity of [facility] Oxygen saturation in 2021-08-22 13:00:00 95 /min University of Arterial blood by [facility] Pulse oximetry Branch Body temperature 2021-08-22 12:22:00 36.72 [place] [facility] ersity of [facility] Branch Systolic blood 2020-12-17 18:35:00 139 mm[Hg] Univer sity of pressure [place] [facility] Diastolic blood 2020-12-17 18:35:00 87 mm[Hg] Unive rsity of pressure [place] [facility] [place] Heart rate 2020-12-17 18:35:00 110 /min [facility] Body temperature 2020-12-17 18:35:00 37.72 [place] [facility] ersity of [place] [facility] Respiratory rate 2020-12-17 18:35:00 18 /min Univ ersity of [place] [facility] Oxygen saturation in 2020-12-17 18:35:00 93 /min University of Arterial blood by [facility] Pulse oximetry Branch Body height 2020-12-12 08:21:00 180.3 cm [facility] Body weight 2020-12-12 08:21:00 103.42 kg [facility] BMI 2020-12-12 08:21:00 31.80 kg/m2 [facility] Systolic blood 2020-12-17 18:35:00 139 mm[Hg] Univer sity of pressure [place] [facility] Diastolic blood 2020-12-17 18:35:00 87 mm[Hg] Unive rsity of pressure [place] [facility] Heart rate 2020-12-17 18:35:00 110 /min Universi ty of [place] [facility] [place] Body temperature 2020-12-17 18:35:00 37.72 [place] Univ ersity of [place] [facility] Respiratory rate 2020-12-17 18:35:00 18 /min Univ ersity of [place] [facility] Oxygen saturation in 2020-12-17 18:35:00 93 /min University of Arterial blood by [place] [facility] Pulse oximetry Branch Body height 2020-12-12 08:21:00 180.3 cm Universi ty of [place] [facility] [place] Body weight 2020-12-12 08:21:00 103.42 kg Universi ty of [facility] BMI 2020-12-12 08:21:00 31.80 kg/m2 Universi ty of [place] [facility] Systolic blood 2020-08-23 19:27:00 140 mm[Hg] Univer sity of pressure [place] [facility] Diastolic blood 2020-08-23 19:27:00 79 mm[Hg] Unive rsity of pressure [place] [facility] Heart rate 2020-08-23 19:27:00 99 /min Universi ty of [facility] Body temperature 2020-08-23 19:27:00 36 [place] Univ ersity of [place] [facility] Respiratory rate 2020-08-23 19:27:00 18 /min Univ ersity of [place] [facility] Oxygen saturation in 2020-08-23 19:27:00 93 /min University of Arterial blood by [place] [facility] Pulse oximetry Branch Body weight [...] Branch Body temperature 2020-08-23 19:27:00 36 [place] [facility] Respiratory rate 2020-08-23 19:27:00 18 /min [facility] Oxygen saturation in 2020-08-23 19:27:00 93 /min [facility] Arterial blood by [facility] Pulse oximetry [place] Body weight 2020-08-21 07:20:00 104.962 kg [facility] BMI 2020-08-21 07:20:00 32.27 kg/m2 [facility] Procedures Procedure Date / Time Performing Clinician Source Performed POCT GLUCOSE (AUTOMATED) 2020-12-17 15:42:00 Harrison, [facility]OLIC PANEL 2020-12-17 10:45:00 Paul Bean [facility] (NA, K, CL, CO2, GLUCOSE, [place] Medica l Branch BUN, CREATININE, CA) CBC WITH DIFF 2020-12-17 10:45:00 Paul Bean [facility] POCT GLUCOSE (AUTOMATED) 2020-12-17 02:36:00 Harrison, Premal G Uni [facility] XR TIBIA FIBULA 2 VW LEFT 2020-12-16 23:38:00 Paul Bean [facility] POCT GLUCOSE (AUTOMATED) 2020-12-16 23:20:00 Harrison, Premal [facility] POCT GLUCOSE (AUTOMATED) 2020-12-16 20:10:00 Harrison, Premal [facility] POCT GLUCOSE (AUTOMATED) 2020-12-16 14:43:00 Harrison, Premal [facility] BASIC METABOLIC PANEL 2020-12-16 13:51:00 Paul Bean [facility] (NA, K, CL, CO2, GLUCOSE, [place] Medica l Branch BUN, CREATININE, CA) CBC WITH DIFF 2020-12-16 13:51:00 Paul Bean [facility] POCT GLUCOSE (AUTOMATED) 2020-12-16 04:00:00 Harrison, Premal [facility] POCT GLUCOSE (AUTOMATED) 2020-12-16 00:14:00 Harrison, Premal G Uni versity of [facility] CT CHEST PULMONARY 2020-12-15 22:29:38 Paul Bean [facility] ANGIOGRAM [facility] POCT GLUCOSE (AUTOMATED) 2020-12-15 19:26:00 Harrison, Premal G Uni versity of [facility] POCT GLUCOSE (AUTOMATED) 2020-12-15 15:13:00 Harrison, Premal G Uni versity of [facility] HB ECG ROUTINE & RHYTHM 2020-12-15 14:25:27 Cailin Romo [facility] Branch MAGNESIUM 2020-12-15 12:01:00 Paul Bean Sivakumar [facility] BASIC METABOLIC PANEL 2020-12-15 12:01:00 Paul Bean [facility] (NA, K, CL, CO2, GLUCOSE, [place] Med[facility] l Branch BUN, CREATININE, CA) CBC WITH DIFF 2020-12-15 12:01:00 Paul Bean Sivakumar [facility] POCT GLUCOSE (AUTOMATED) 2020-12-15 03:57:00 Harrison, Premal G Uni versity of [facility] POCT GLUCOSE (AUTOMATED) 2020-12-14 23:31:00 Harrison, Premal G Uni versity of [facility] POCT GLUCOSE (AUTOMATED) 2020-12-14 19:08:00 Harrison, Premal G Uni versity of [facility] POCT GLUCOSE (AUTOMATED) 2020-12-14 15:11:00 Harrison, Premal G Uni versity of [facility] POCT GLUCOSE (AUTOMATED) 2020-12-14 02:36:00 Harrison, Premal G Uni versity of [facility] POCT GLUCOSE (AUTOMATED) 2020-12-13 23:32:00 Harrison, Premal G Uni versity of [facility] POCT GLUCOSE (AUTOMATED) 2020-12-13 18:08:00 Harrison, Premal G Uni versity of [facility] BASIC METABOLIC PANEL 2020-12-13 15:39:00 Paul Bean [facility] (NA, K, CL, CO2, GLUCOSE, [place] [facility] BUN, CREATININE, CA) CBC WITH DIFF 2020-12-13 15:39:00 Paul Bean Sivakumar [facility] POCT GLUCOSE (AUTOMATED) 2020-12-13 14:06:00 Harrison, Premal [facility] POCT GLUCOSE (AUTOMATED) 2020-12-13 03:07:00 Harrison, Premal [facility] POCT GLUCOSE (AUTOMATED) 2020-12-12 23:52:00 Harrison, [facility] POCT GLUCOSE (AUTOMATED) 2020-12-12 20:28:00 Harrison, Premal [facility] POCT GLUCOSE (AUTOMATED) 2020-12-12 19:14:00 Harrison, Premal [facility] POCT GLUCOSE (AUTOMATED) 2020-12-12 14:33:00 Harrison, Premal G [facility] MAGNESIUM 2020-12-12 08:58:00 Paul Bean Sivakumar [facility] BASIC METABOLIC PANEL 2020-12-12 08:58:00 Paul Bean [facility] (NA, K, CL, CO2, GLUCOSE, [place] Med[facility] Branch BUN, CREATININE, CA) CBC WITH DIFF 2020-12-12 08:58:00 Paul Bean Sivakumar [facility] US ABDOMEN LIMITED 2020-12-12 06:32:26 [facility] (AUTOMATED) 2020-12-12 03:40:00 Harrison, Premal G Uni [facility] POCT GLUCOSE (AUTOMATED) 2020-12-12 00:06:00 Harrison, Premal G Uni [facility] XR HIPS 3 VW LEFT 2020-12-11 20:20:00 Darnell Beanaham Sivakumar [facility] HB ECG ROUTINE & RHYTHM 2020-12-11 20:04:06 Cailin Romo [facility] VITAMIN B6, PLASMA 2020-12-11 19:17:00 [facility] POCT GLUCOSE (AUTOMATED) 2020-12-11 19:06:00 Rene Harrison [facility] CREATINE KINASE 2020-12-11 18:22:00 Clarisse Hannon [facility] VITAMIN B12, LEVEL 2020-12-11 18:22:00 Paul Bean [facility] FOLATE 2020-12-11 18:22:00 Vikas [facility] THYROID STIMULATING 2020-12-11 18:22:00 aCilin Romo [facility] HORMONE [facility] PROCALCITONIN 2020-12-11 18:22:00 Vikas [facility] VITAMIN B1 (THIAMINE), 2020-12-11 18:22:00 Paul Bean Sivakumar [facility] WHOLE BLOOD [facility] HEAD WO CONTRAST 2020-12-11 14:07:35 Sweetie Stout [facility] URINALYSIS 2020-12-11 13:44:00 Singer [facility] URINE CULTURE 2020-12-11 13:44:00 [facility] COVID-19 (ID NOW RAPID 2020-12-11 12:31:00 Paco Lacey [facility] TESTING) [facility] LAB ONLY COVID 2020-12-11 12:31:00 Singer [facility] XR CHEST 1 VW 2020-12-11 12:07:24 Singer [facility] BLOOD CULTURE SCREEN 2020-12-11 12:02:00 Paco Lacey [facility] MAGNESIUM 2020-12-11 12:02:00 Paul Bean Sivakumar [facility] FERRITIN SERUM 2020-12-11 12:02:00 Darnell Beanaham Sivakumar [facility] COMP. METABOLIC PANEL 2020-12-11 12:02:00 Paco Lacey [facility] ([id number]) Medical Branch CBC WITH DIFF 2020-12-11 12:02:00 Singer [facility] LACTIC ACID WHOLE BLOOD 2020-12-11 12:02:00 Paco Lacey [facility] BLOOD CULTURE SCREEN 2020-12-11 11:42:00 Paco Lacey [facility] EMERGENCY SERVICES 2020-12-11 06:01:00 Doctor Tabitha [facility] AGREEMENTS AND [place] [facility] AUTHORIZATIONS HOSPITAL ADMISSION 2020-12-11 06:01:00 Doctor Tabitha [facility] Name Medical [facility] HEALTH - OTHER 2020-11-11 06:01:00 Doctor Tabitha [facility] [place] Medical [facility] HEALTH - OTHER 2020-10-30 06:01:00 Doctor Tabitha [facility] Name Medical [place] EXTERNAL PROVIDER RECORDS 2020-09-01 06:01:00 Doctor Tabitha [facility] Name [facility] POCT GLUCOSE (AUTOMATED) 2020-08-23 18:09:00 Kelly Washington [facility] POCT GLUCOSE (AUTOMATED) 2020-08-23 14:14:00 Kelly Washington [facility] MAGNESIUM 2020-08-23 11:18:00 [facility] BASIC METABOLIC PANEL 2020-08-23 11:18:00 [facility] (NA, K, CL, CO2, GLUCOSE, Medica l Branch BUN, CREATININE, CA) CBC WITH DIFF 2020-08-23 11:18:00 [place] [facility] POCT GLUCOSE (AUTOMATED) 2020-08-23 10:21:00 [facility] ([facility]OMATED) 2020-08-23 05:55:00 Kelly Washington [facility] POCT GLUCOSE (AUTOMATED) 2020-08-23 03:00:00 Kelly Washington [facility] POCT GLUCOSE (AUTOMATED) 2020-08-22 23:38:00 Kelly Washington [facility] POCT GLUCOSE (AUTOMATED) 2020-08-22 19:04:00 Kelly Washington [facility] POCT GLUCOSE (AUTOMATED) 2020-08-22 13:49:00 Kelly Washington [facility] MAGNESIUM 2020-08-22 10:10:00 [facility] 2020-08-22 10:10:00 Jill Aguila [facility] ([id number]) (ALB,T.PRO,BILI Medical Branch T,BU/BC,ALT,AST,ALK PHOS) BASIC METABOLIC PANEL 2020-08-22 10:10:00 [place], [facility] (NA, K, CL, CO2, GLUCOSE, Medica l Branch BUN, CREATININE, CA) LIPID PANEL (90184)(TOTAL 2020-08-22 10:10:00 [place], [facility] TRIGLY[facility]ER[facility], HDL) CBC WITH DIFF 2020-08-22 10:10:00 [facility] POCT GLUCOSE (AUTOMATED) 2020-08-22 10:10:00 Kelly Washington [facility] POCT GLUCOSE (AUTOMATED) 2020-08-22 07:13:00 Kelly Washington [facility] POCT GLUCOSE (AUTOMATED) 2020-08-22 02:24:00 Kelly Washington [facility] POCT GLUCOSE (AUTOMATED) 2020-08-21 23:40:00 Kelly Washington [facility] POCT GLUCOSE (AUTOMATED) 2020-08-21 18:10:00 Kelly Washington [facility] POCT GLUCOSE (AUTOMATED) 2020-08-21 13:39:00 Kelly Washington [facility] ETHANOL 2020-08-21 12:35:00 Jos Quiroz [facility] ACTIVATED PARTIAL 2020-08-21 12:35:00 Padmini [facility] THRMPLAS [facility] GALV ONLY - SYPHILIS 2020-08-21 12:35:00 Padmini Kelly [facility] IGG/IGM [facility] LACTATE DEHYDROGENASE 2020-08-21 10:09:00 Ramya, [facility] GALV/CLC ONLY - URINE 2020-08-21 10:09:00 Jos Quiroz [facility] DRUG (IMMUNOASSAY) - 4 ER Medica l Branch PANEL URINALYSIS 2020-08-21 10:09:00 [place], [facility] URINE CULTURE 2020-08-21 10:09:00 Ramya, [facility] PROCALCITONIN 2020-08-21 10:09:00 Ramya, [facility] POCT GLUCOSE (AUTOMATED) 2020-08-21 09:41:00 Kelly Washington [facility] PROTHROMBIN TIME / INR 2020-08-21 08:32:00 [place], [facility] ACTIVATED PARTIAL 2020-08-21 08:32:00 [place], [facility] THRMPLAS [facility] C-REACTIVE PROTEIN 2020-08-21 08:31:00 [place], [facility] HEPATIC FUNCTION PANEL 2020-08-21 08:31:00 [place], [facility] ([id number]) (ALB,T.PRO,BILI [facility] T,BU/BC,ALT,AST,ALK PHOS) BASIC METABOLIC PANEL 2020-08-21 08:31:00 Ramya, [facility] (NA, K, CL, CO2, [facility] [place] BUN, CREATININE, CA) SEDIMENTATION RATE 2020-08-21 08:31:00 [place], [facility] CBC WITH DIFF 2020-08-21 08:31:00 Ramya, [facility] GLYCOSYLATED HEMOGLOBIN 2020-08-21 08:31:00 Ramya, [facility] (A1C) [facility] HIV 1/2 AG-AB WITH REFLEX 2020-08-21 08:31:00 [facility] (ID NOW RAPID 2020-08-21 08:20:00 Ramya, [facility] TESTING) Medical Branch LAB ONLY COVID 2020-08-21 08:20:00 [place], [facility] o f [facility] Encounters Start End Encounter Admission Attending Care Care Encounter Source Date/Time Date/Time Type Type Clinicians Facility Department ID 2020-08-21 Inpatient Shayy WASHINGTON [facility] KVNG [id number] Univers 01:07:00 KELLY cantu [facility] 2021-08-22 2021-08-22 Emergency X [facility] ERT [id number] Univers 06:21:00 08:02:00 SWEETIE cantu [facility] 2021-08-22 2021-08-22 [facility] [id number] Univers 06:21:00 08:02:00 Sweetie OREN [id number] i ty of [place] [id number] [facility] 084 Branch 2021-08-09 2021-08-09 Outpatient ZAKI, [facility] [id number] [facility] 10:27:03 10:27:03 ADRIANA lopez of Medicin e 2020-12-28 2020-12-28 Telephone [facility] 1.2.840.114 [id number] 00:00:00 00:00:00 Calvin H PRIMARY [id number] CARE 4.2.7.2.686 PAVILLION [id number] 220 2020-12-28 2020-12-28 Telephone [facility] [id number] Univers 00:00:00 00:00:00 Calvin H PRIMARY [id number] it y of CARE [id number] [place] [facility] [id number] Ut dical 220 Branch 2020-12-19 2020-12-19 Transition Tuan Peters 1.2.840.114 [id number] 00:00:00 00:00:00 of Care Ruchi Braswell [id number] [place] [id number] [id number] 2020-12-19 2020-12-19 Transition Tuan Peters [id number] Univers 00:00:00 00:00:00 of Care Ruchi Braswell [id number] it y of [place]2.7.2.[place] [id number] [facility] 403 Branch 2020-12-11 2020-12-17 [facility] Paco Lacey 1.2.840.1 [id number] 05:11:00 16:00:00 Encounter Rene Harrisony [id number] [facility] [id number] [id number] [facility] 2020-12-11 2020-12-17 [facility] 1.[facility].840[id number] [facility] 05:11:00 16:00:00 Encounter Rene Harrison [id number] ity of [facility] 4.2.7.2.686 [place] [id number] [facility] 096 [place] 2020-12-11 2020-12-11 Emergency [facility] [id number] Univers 05:11:00 05:11:00 [facility] 2020-11-16 2020-11-16 Emergency X [facility] ERT [id number] Univers 09:31:00 09:31:00 [facility] 2020-11-11 2020-11-11 Orders Doctor BASILIA 1.2.840.114 [id number] 00:00:00 00:00:00 Only Unassigned, NATTY [id number] [place] [facility] 4.2.7.2.686 [id number] 009 2020-11-11 2020-11-11 Orders Doctor BASILIA 1.2.840.114 [id number] Univers 00:00:00 00:00:00 Only Unassigned, NATTY [id number] ity of [place] [facility] 4.2.7.2.686 Jeff as [id number] [facility] 009 [place] 2020-11-07 2020-11-07 Telephone Wilder [facility] [id number] 00:00:00 00:00:00 Angi Bosch [place] [id number] [place] 4.2.7.2.686 Professio [id number] [address] 2020-11-07 2020-11-07 Telephone Hdz [facility] [id number] [facility] 00:00:00 00:00:00 Sendil Danitza [place] [id number] ity of [place] 4[place]2.7.2.686 [place] Profess[place] [id number] [address] 2020-10-30 2020-10-30 Orders Doctor BASILIA 1.2.840.114 [id number] 00:00:00 00:00:00 Only Unassigned, NATTY [id number] [place] [facility] 4.2.7.[id number] [facility] 2020-10-30 2020-10-30 Orders Doctor CUI 1.2.840.114 [id number] Univers 00:00:00 00:00:00 Only Unassigned, NATTY [id number] ity of [place] [facility] 4.2.7.2.686 Jeff as [id number] [address] 2020-09-26 2020-09-26 Telephone [facility] 1.2.840.114 [id number] 00:00:00 00:00:00 [facility] [id number] CLINICS 4.2.7.2.686 [id number] [facility] 2020-09-26 2020-09-26 Telephone [facility] 1.2.840.114 [id number] Univers 00:00:00 00:00:00 [facility] [id number] i ty of CLINICS 4[place]2.7.2.[place] [id number] [address] 2020-09-01 2020-09-01 Orders Doctor CUI 1.2.840.114 [id number] 00:00:00 00:00:00 Only Unassigned, NATTY [id number] [place] [facility] 4.2.7.2.686 [id number] [id number] 2020-09-01 2020-09-01 Orders Doctor BASILIA 1.2.840.114 [id number] Univers 00:00:00 00:00:00 Only Unassigned, NATTY [id number] ity of [place] [facility] 4.2.7.2.686 Jeff as [id number] [facility] 009 Branch 2020-08-25 2020-08-25 Transition Tuan Peters 1.2.840.114 [id number] 00:00:00 00:00:00 of Care Ruchi Braswell [id number] [place] 4.2.7.2.686 [id number] [facility] 2020-08-25 2020-08-25 Transition Tuan Peters 1.2.840.[id number] [facility] 00:00:00 00:00:00 of Care Ruchi Garciay [id number] it y of [place] [id number] [address] 2020-08-21 2020-08-23 [facility] Ayleen 1.2.840.114 [id number] 01:07:00 18:35:00 Encounter Kelly Amaya [id number] [facility] 4.2.7.2.686 [id number] [facility] 2020-08-21 2020-08-23 [facility] 1. 2.840.[id number] [facility] 01:07:00 18:35:00 Encounter Mukul Gallardo BebaSarbjit Amaya 350.1.13. 10 ity [facility] 4.2.7.2.686 Jeff as [phone] [address] Results Test Description Test Time Test Comments Results Result Comments Source POCT GLUCOSE (AUTOMATED) 2020-12-17 15:43:35 Test Item Value Reference Range Interpretation Comme nts POCT GLU (test code = 5198171924) 129 mg/dL 70-110 H Lab Interpretation (test code = 82714-0) Abnormal [facility] METABOLIC PANEL (NA, K, CL, CO2, GLUCOSE, BUN, CREATININE, CA)2020-12-17 11:45:07 Test Item Value Reference Range Interpretation Comments NA (test code = 137 mmol/L 135-145 [id number]) K (test code = 3.5 mmol/L 3.5-5.0 0220564732) CL (test code = 103 mmol/L 98-108 7568485476) CO2 TOTAL (test code = 26 mmol/L 23-31 4688397409) AGAP (test code = 2-16 7941234284) BUN (test code = 11 mg/dL 7-23 6701959646) GLUCOSE (test code = 175 mg/dL 70-110 H 8110721184) CREATININE (test code = 0.62 mg/dL 0.60-1.25 2509412470) CALCIUM (test code = 9.0 mg/dL 8.6-10.6 1030409557) eGFR Calculation mL/min/1.73m2 (Non-) (test code = 1069399984) eGFR Calculation mL/min/1.73m2 () (test code = 5535954562) JAMES (test code = JAMES) Association of [...] tests). Lab Interpretation Abnormal (test code = 91923-3) [facility] WITH [id number] 11:07:27 Test Item Value Reference Range Interpretation [...] RDW-SD (test code = 45.2 fL 38.5-51.6 18885-5) RDW-CV (test code = 16.9 % 12.1-15.4 H 788-0) PLT (test code = See_Comment H [Automated 777-3) message] The sy stem which generated this result transmitted reference range : 150 - 328 10*3/ ?L. The reference r torito was not used to interpret this result as normal/abnormal . MPV (test code = 8.1 fL 9.8-13.0 L 27889-6) NRBC/100 WBC (test See_Comment [Automat ed code = 9667704905) message] The system which generated this result transmitted reference range : 0.0 - 10.0 /100 WBCs. The refer ence range was not u sed to interpret th is result as normal/abnormal . NRBC x10^3 (test code <0.01 See_Comment [Auto mated = 4655569930) message] The s ystem which generated this result transmitted reference range : 10*3/?L. The reference range was not used to interpret this result as normal/abnormal . GRAN MAT (NEUT) % 72.8 % (test code = 770-8) IMM GRAN % (test code 0.60 % = 5753309461) LYMPH % (test code = 18.4 % 736-9) MONO % (test code = 5.7 % 5905-5) EOS % (test code = 1.8 % 713-8) BASO % (test code = 0.7 % 706-2) GRAN MAT x10^3(ANC) 8.23 10*3/uL 1.99-6.95 H (test code = 2626633168) IMM GRAN x10^3 (test 0.07 10*3/uL 0.00-0.06 H code = 6853488260) LYMPH x10^3 (test code 2.08 10*3/uL 1.09-3.23 = 731-0) MONO x10^3 (test code 0.65 10*3/uL 0.36-1.02 = 742-7) EOS x10^3 (test code = 0.20 10*3/uL 0.06-0.53 711-2) BASO x10^3 (test code 0.08 10*3/uL 0.01-0.09 = 704-7) Lab Interpretation Abnormal (test code = 83631-2) [facility] 06:03:38 Test Item Value Reference Range Interpretation Comments POCT GLU (test code = 2269101977) 75 mg/dL 70-110 Lab Interpretation (test code = Normal 24872-1) [facility] [id number] 00:01:00 Test Item Value Reference Range Interpretation Comments VIT B6 (test code = 13.1 nmol/L 20.0-125.0 L INTERPRE TIVE 77983-1) INFORMATION: Vi tamin B6 (Pyridoxal 5-Phosphate) Pyridoxal 5'-phosphate me asured in a specimen collected follo wing an 8-hour or overnight fast accurately clara cates vitamin B6 nutritional sta tus. Non-fasting spe cimen concentration reflects recent vitamin intake. This test was develo ped and its perform ance characteristics determined by [facility]. I t has not been cleare d or approved by the US Food and Drug Administration. This test was perfor med in a CLIA certifie d laboratory and is intended for cl inical purposes.Perfor med By: Mama[address] [place] [address] [id number] Director: Namrata Klein MD Lab Interpretation Abnormal (test code = 70697-5) [facility] TIBIA FIBULA 2 VW [id number] 23:57:09 Tricompartmental knee joint osteoarthrosis.XR TIBIA FIBULA [...] No acute fracture or dislocation.IMPRESSIONTricompartmental knee joint osteoarthrosis.[facility] GLUCOSE (AUTOMATED) 2020-12-16 23:27:00 Test Item Value Reference Range Interpretation Comments POCT GLU (test code = 5195614311) 114 mg/dL 70-110 H Lab Interpretation (test code = Abnormal 36926-3) [facility] GLUCOSE (AUTOMATED)2020-12-16 20:12:00 Test Item Value Reference Range Interpretation Comments POCT GLU (test code = 5636510412) 105 mg/dL 70-110 Lab Interpretation (test code = Normal 26338-0) [facility] GLUCOSE (AUTOMATED)2020-12-16 14:44:00 Test Item Value Reference Range Interpretation Comments POCT GLU (test code = 5993045118) 153 mg/dL 70-110 H Lab Interpretation (test code = Abnormal 13193-1) [facility] (NA, K, CL, CO2, GLUCOSE, BUN, CREATININE, CA)2020-12-16 14:23:00 Test Item Value Reference Range Interpretation Comments NA (test code = 138 mmol/L 135-145 4599183942) K (test code = 3.4 mmol/L 3.5-5.0 L 9826213372) CL (test code = 100 mmol/L 98-108 5308459290) CO2 TOTAL (test code = 31 mmol/L 23-31 2071088024) AGAP (test code = 2-16 0780667770) BUN (test code = 11 mg/dL 7-23 8522866370) GLUCOSE (test code = 162 mg/dL 70-110 H 6851823636) CREATININE (test code = 0.64 mg/dL 0.60-1.25 7201193422) CALCIUM (test code = 8.9 mg/dL 8.6-10.6 1992913555) eGFR Calculation mL/min/1.73m2 (Non-) (test code = 1994926476) eGFR Calculation mL/min/1.73m2 () (test code = 8628423329) JAMES (test code = JAMES) Association of [...] tests). Lab Interpretation Abnormal (test code = 36844-8) [facility] WITH [id number] 14:05:00 Test Item Value Reference Range Interpretation [...] RDW-SD (test code = 45.4 fL 38.5-51.6 07619-9) RDW-CV (test code = 17.0 % 12.1-15.4 H 788-0) PLT (test code = See_Comment H [Automated 777-3) message] The sy stem which generated this result transmitted reference range : 150 - 328 10*3/ ?L. The reference r torito was not used to interpret this result as normal/abnormal . MPV (test code = 8.0 fL 9.8-13.0 L 38449-3) NRBC/100 WBC (test See_Comment [Automat ed code = 9544499150) message] The system which generated this result transmitted reference range : 0.0 - 10.0 /100 WBCs. The refer ence range was not u sed to interpret th is result as normal/abnormal . NRBC x10^3 (test code <0.01 See_Comment [Auto mated = 3192832633) message] The s ystem which generated this result transmitted reference range : 10*3/?L. The reference range was not used to interpret this result as normal/abnormal . GRAN MAT (NEUT) % 70.0 % (test code = 770-8) IMM GRAN % (test code 0.70 % = 7726048696) LYMPH % (test code = 20.5 % 736-9) MONO % (test code = 7.1 % 5905-5) EOS % (test code = 1.0 % 713-8) BASO % (test code = 0.7 % 706-2) GRAN MAT x10^3(ANC) 9.44 10*3/uL 1.99-6.95 H (test code = 9189746048) IMM GRAN x10^3 (test 0.09 10*3/uL 0.00-0.06 H code = 8293343812) LYMPH x10^3 (test code 2.76 10*3/uL 1.09-3.23 = 731-0) MONO x10^3 (test code 0.96 10*3/uL 0.36-1.02 = 742-7) EOS x10^3 (test code = 0.13 10*3/uL 0.06-0.53 711-2) BASO x10^3 (test code 0.10 10*3/uL 0.01-0.09 H = 704-7) Lab Interpretation Abnormal (test code = 22038-7) [facility] # [id number] 13:01:00 Test Item Value Reference Range Interpretation Comments Blood Culture-Aerobic No organisms No growth Previo us (test code = 50091-7) isolated prelim inary verified result was Culture In Progress on 12/11/2020 at 100 1 CSTPrevious preliminary verified result was No growth a t 24 hours on 12/12/2020 at 070 1 CSTPrevious preliminary verified result was No growth a t 48 hours on 12/13/2020 at 070 1 CSTPrevious preliminary verified result was No growth a t 72 hours on 12/14/2020 at 070 1 RN PACU Blood No organisms No growth Previous Culture-Anaerobic isolated preliminar y (test code = 90808-6) verifi ed result was Culture In Progress on 12/11/2020 at 100 1 CSTPrevious preliminary verified result was No growth a t 24 hours on 12/12/2020 at 070 1 CSTPrevious preliminary verified result was No growth a t 48 hours on 12/13/2020 at 070 1 CSTPrevious preliminary verified result was No growth a t 72 hours on 12/14/2020 at 070 1 RN PACU Lab Interpretation Normal (test code = 33702-4) [facility] [id number] 13:01:00 Test Item Value Reference Range Interpretation Comments Blood Culture-Aerobic No organisms No growth Previo us (test code = 92434-6) isolated prelim inary verified result was Culture In Progress on 12/11/2020 at 100 1 CSTPrevious preliminary verified result was No growth a t 24 hours on 12/12/2020 at 070 1 CSTPrevious preliminary verified result was No growth a t 48 hours on 12/13/2020 at 070 1 CSTPrevious preliminary verified result was No growth a t 72 hours on 12/14/2020 at 070 1 RN PACU Blood No organisms No growth Previous Culture-Anaerobic isolated preliminar y (test code = 50536-2) verifi ed result was Culture In Progress on 12/11/2020 at 100 1 CSTPrevious preliminary verified result was No growth a t 24 hours on 12/12/2020 at 070 1 CSTPrevious preliminary verified result was No growth a t 48 hours on 12/13/2020 at 070 1 CSTPrevious preliminary verified result was No growth a t 72 hours on 12/14/2020 at 070 1 RN PACU Lab Interpretation Normal (test code = 58253-7) [facility] GLUCOSE (AUTOMATED)2020-12-16 04:01:00 Test Item Value Reference Range Interpretation Comments POCT GLU (test code = 0591574073) 156 mg/dL 70-110 H Lab Interpretation (test code = Abnormal 19078-5) [facility] GLUCOSE (AUTOMATED)2020-12-16 00:24:00 Test Item Value Reference Range Interpretation Comments POCT GLU (test code = 5554725440) 115 mg/dL 70-110 H Lab Interpretation (test code = Abnormal 05643-9) [facility] CHEST PULMONARY [id number] 23:34:55No pulmonary emboli. No interval change in appearance of right hemithorax volume loss, bandshaped scarring with associated bronchiectasis predominantly involvingposterior segment of the right upper lobe and right lower lobe. Left hepatic lobe a trophy, prior cholecystectomy and with a stableappearance of intra and extrahepatic biliary ductal dilatation. CT SCAN OF THE CHEST WITH CONTRAST 14:16 PM TECHNIQUE: Multidetector helical CT scan of [...] of intra and extrahepatic biliary du ctal dilatation.[facility] GLUCOSE (AUTOMATED) 2020-12-15 19:28:00 Test Item Value Reference Range Interpretation Comments POCT GLU (test code = 9645297057) 140 mg/dL 70-110 H Lab Interpretation (test code = Abnormal 57534-8) [facility] 15:26:00 Test Item Value Reference Range Interpretation Comments MAGNESIUM (test code = 7886802645) 2.2 mg/dL 1.7-2.4 Lab Interpretation (test code = Normal 41447-3) [facility]2020-12-15 15:15:00 Test Item Value Reference Range Interpretation Comments POCT GLU (test code = 9110172059) 181 mg/dL 70-110 H Lab Interpretation (test code = Abnormal 49248-0) [facility] (NA, K, CL, CO2, GLUCOSE, BUN, CREATININE, CA)2020-12-15 13:07:00 Test Item Value Reference Range Interpretation Comments NA (test code = 136 mmol/L 135-145 6851155482) K (test code = 3.6 mmol/L 3.5-5.0 6089802957) CL (test code = 96 mmol/L 98-108 L 4792642712) CO2 TOTAL (test code = 29 mmol/L 23-31 2098940595) AGAP (test code = 2-16 1465772271) BUN (test code = 12 mg/dL 7-23 2115051408) GLUCOSE (test code = 183 mg/dL 70-110 H 3373739038) CREATININE (test code = 0.70 mg/dL 0.60-1.25 3342115952) CALCIUM (test code = 9.2 mg/dL 8.6-10.6 3177371403) eGFR Calculation mL/min/1.73m2 (Non-) (test code = 7578406202) eGFR Calculation mL/min/1.73m2 () (test code = 2764209164) JAMES (test code = JAMES) Association of [...] tests). Lab Interpretation Abnormal (test code = 70050-9) [facility] WITH [id number] 12:32:00 Test Item Value Reference Range Interpretation Comments WBC (test code = See_Comment H [Automated 5390-2) message] The system which generated this result transmit ronan reference range : 4.20 - 10.70 10*3/?L. The reference range was not used to interpret this result as normal/abnormal . RBC (test code = See_Comment H [Automated 9-8) message] The system which generated this result [...] RDW-SD (test code = 44.4 fL 38.5-51.6 95761-5) RDW-CV (test code = 17.7 % 12.1-15.4 H 788-0) PLT (test code = See_Comment H [Automated 777-3) message] The system which generated this result transmit ronan reference range : 150 - 328 10*3/ ?L. The reference range was not u sed to interpret th is result as normal/abnormal . MPV (test code = 8.1 fL 9.8-13.0 L 19553-9) NRBC/100 WBC (test See_Comment [Automat ed code = 7310791465) message] The system which generated this result transmit ronan reference range : 0.0 - 10.0 /100 WBCs. The reference range was not used to interpret this result as normal/abnormal . NRBC x10^3 (test code <0.01 See_Comment [Auto mated = 0563646157) message] The system which generated this result transmit ronan reference range : 10*3/?L. The reference range was not used to interpret this result as normal/abnormal . GRAN MAT (NEUT) % 74.5 % (test code = 770-8) IMM GRAN % (test code 0.70 % = 6179513138) LYMPH % (test code = 17.4 % 736-9) MONO % (test code = 6.8 % 5905-5) EOS % (test code = 0.2 % 713-8) BASO % (test code = 0.4 % 706-2) GRAN MAT x10^3(ANC) 11.99 10*3/uL 1.99-6.95 H (test code = 5868729663) IMM GRAN x10^3 (test 0.11 10*3/uL 0.00-0.06 H code = 5358805874) LYMPH x10^3 (test code 2.80 10*3/uL 1.09-3.23 = 731-0) MONO x10^3 (test code 1.10 10*3/uL 0.36-1.02 H = 742-7) EOS x10^3 (test code = 0.03 10*3/uL 0.06-0.53 L 711-2) BASO x10^3 (test code 0.06 10*3/uL 0.01-0.09 = 704-7) Lab Interpretation Abnormal (test code = 30301-6) [facility] GLUCOSE (AUTOMATED)2020-12-15 04:16:00 Test Item Value Reference Range Interpretation Comments POCT GLU (test code = 9105227683) 200 mg/dL 70-110 H Lab Interpretation (test code = Abnormal 95491-8) [facility] (THIAMINE), WHOLE [id number] 00:30:00 Test Item Value Reference Range Interpretation Comments Vitamin B1, Whole 136 nmol/L 70-180 INTERPRETI VE INFORMATION: Blood (test code = Vitamin B 1, Whole Blood 47759-0) This assay júnior ures the concentration o f thiamine diphosphate (TD P), the primary active form of vitamin B1. Nick roximately 90 percent of v itamin B1 present in whol e blood is TDP. Thiamine a nd thiamine monoph osphate, which comprise the remaining 10 pe rcent, are not measured. T his test was developed a nd its performance characteristics determined by [facility]. I t has not been cleared or approved by the [place] Food and Drug Administration. This test was performed i n a CLIA certified labor atory and is intended for clinical purposes.Perfor med By: [facility] [place] [address] [id number] aboratory Director: Namrtaa Klein MD [facility] GLUCOSE (AUTOMATED)2020-12-14 23:35:00 Test Item Value Reference Range Interpretation Comments POCT GLU (test code = 7403692247) 151 mg/dL 70-110 H Lab Interpretation (test code = Abnormal 32630-2) [facility] GLUCOSE (AUTOMATED)2020-12-14 19:19:00 Test Item Value Reference Range Interpretation Comments POCT GLU (test code = 0117158316) 193 mg/dL 70-110 H Lab Interpretation (test code = Abnormal 27001-9) [facility] GLUCOSE (AUTOMATED)2020-12-14 15:22:00 Test Item Value Reference Range Interpretation Comments POCT GLU (test code = 1873797810) 221 mg/dL 70-110 H Lab Interpretation (test code = Abnormal 05605-3) [facility] GLUCOSE (AUTOMATED)2020-12-14 02:37:00 Test Item Value Reference Range Interpretation Comments POCT GLU (test code = 8410890864) 210 mg/dL 70-110 H Lab Interpretation (test code = Abnormal 37627-9) [facility] GLUCOSE (AUTOMATED)2020-12-13 23:33:00 Test Item Value Reference Range Interpretation Comments POCT GLU (test code = 1236981879) 182 mg/dL 70-110 H Lab Interpretation (test code = Abnormal 26592-2) [facility] GLUCOSE (AUTOMATED)2020-12-13 18:09:00 Test Item Value Reference Range Interpretation Comments POCT GLU (test code = 8303836321) 150 mg/dL 70-110 H Lab Interpretation (test code = Abnormal 41132-8) [facility] METABOLIC PANEL (NA, K, CL, CO2, GLUCOSE, BUN, CREATININE, CA)2020-12-13 16:27:00 Test Item Value Reference Range Interpretation Comments NA (test code = 136 mmol/L 135-145 7699647141) K (test code = 3.7 mmol/L 3.5-5.0 9936264447) CL (test code = 96 mmol/L 98-108 L 9657093607) CO2 TOTAL (test code = 29 mmol/L 23-31 5541472893) AGAP (test code = 2-16 0452391659) BUN (test code = 6 mg/dL 7-23 L 4612848567) GLUCOSE (test code = 212 mg/dL 70-110 H 8716327833) CREATININE (test code = 0.61 mg/dL 0.60-1.25 8251547356) CALCIUM (test code = 9.5 mg/dL 8.6-10.6 4511771922) eGFR Calculation mL/min/1.73m2 (Non-) (test code = 4451496549) eGFR Calculation mL/min/1.73m2 () (test code = 0283545148) JAMES (test code = JAMES) Association of [...] tests). Lab Interpretation Abnormal (test code = 29237-5) [facility] WITH [id number] 16:10:00 Test Item Value Reference Range Interpretation Comments WBC (test code = See_Comment H [Automated 8990-2) message] The sy stem which generated this result transmitted reference range : 4.20 - 10.70 10*3/?L. The reference range was not used to interpret this result as normal/abnormal . RBC (test code = See_Comment H [Automated 249-8) message] The sy stem which generated this [...] RDW-SD (test code = 43.3 fL 38.5-51.6 87111-2) RDW-CV (test code = 16.2 % 12.1-15.4 H 788-0) PLT (test code = See_Comment H [Automated 777-3) message] The sy stem which generated this result transmitted reference range : 150 - 328 10*3/ ?L. The reference r torito was not used to interpret this result as normal/abnormal . MPV (test code = 8.2 fL 9.8-13.0 L 01812-9) NRBC/100 WBC (test See_Comment [Automat ed code = 1438044907) message] The system which generated this result transmitted reference range : 0.0 - 10.0 /100 WBCs. The refer ence range was not u sed to interpret th is result as normal/abnormal . NRBC x10^3 (test code <0.01 See_Comment [Auto mated = 8269301451) message] The s ystem which generated this result transmitted reference range : 10*3/?L. The reference range was not used to interpret this result as normal/abnormal . GRAN MAT (NEUT) % 86.2 % (test code = 770-8) IMM GRAN % (test code 0.70 % = 5509975753) LYMPH % (test code = 10.2 % 736-9) MONO % (test code = 2.5 % 5905-5) EOS % (test code = 0.1 % 713-8) BASO % (test code = 0.3 % 706-2) GRAN MAT x10^3(ANC) 9.61 10*3/uL 1.99-6.95 H (test code = 1735161980) IMM GRAN x10^3 (test 0.08 10*3/uL 0.00-0.06 H code = 9029976549) LYMPH x10^3 (test code 1.14 10*3/uL 1.09-3.23 = 731-0) MONO x10^3 (test code 0.28 10*3/uL 0.36-1.02 L = 742-7) EOS x10^3 (test code = <0.03 0.06-0.53 L 711-2) BASO x10^3 (test code 0.03 10*3/uL 0.01-0.09 = 704-7) Lab Interpretation Abnormal (test code = 62151-4) [facility]2020-[facility] 14:16:00 Test Item Value Reference Range Interpretation Comments POCT GLU (test code = 0026645563) 236 mg/dL 70-110 H Lab Interpretation (test code = Abnormal 57267-2) [facility] COVID [id number] 04:58:00COVID DMT InterpretationInterpretation/Recommendations: Molecular NAAT Tests for [...] COVID-19 testing the patient has had at [facility], including molecular NAAT testing (more commonly known as PCR testing and Rapid ID Now testing) and antibody testing. It does not take into account any testing that a patient has had outside of the [facility] medical record. [facility] LABORATORY SERVICESCOVID Resu dckXNFE-JjN-3 Rapid ID NOW (no units) ? ? Date ? Value ? 12/11/2020 ? Not Detected ? ? ? 11/16/2020 ? Not Detected ? ? ? 08/21/2020 ?Not Detected ? [facility] 2020-12-13 03:11:00 Test Item Value Reference Range Interpretation Comments POCT GLU (test code = 2229282036) 171 mg/dL 70-110 H Lab Interpretation (test code = Abnormal 33698-1) [facility] GLUCOSE (AUTOMATED)2020-12-13 00:00:00 Test Item Value Reference Range Interpretation Comments POCT GLU (test code = 2131263266) 118 mg/dL 70-110 H Lab Interpretation (test code = Abnormal 77455-0) [facility] GLUCOSE (AUTOMATED)2020-12-12 20:29:00 Test Item Value Reference Range Interpretation Comments POCT GLU (test code = 7382810002) 173 mg/dL 70-110 H Lab Interpretation (test code = Abnormal 43249-3) [facility] Center[facility] ABDOMEN [id number] 19:56:17 1. ?Hepatic steatosis. However, limited evaluation [...] main portal veinwasevaluated with color Doppler imaging. Hospice Aide images were obtainedfor the record. COMPARISON: Ultrasound [...] normal where visualized. SPLEEN:No images were obtained. [facility], Radiant Results Inft User - 12/12/2020 1:57 PM CSTEXAM: US ABDOMEN LIMITEDHISTORY: 70 years-old male with RUQ ultrasound to assess for common bileduct dilation .TECHNIQUE: Limited abdominal ultrasound focused on the liver, biliarysystem, pancreas, and spleen was performed. The main portal vein wasevaluated with color Doppler imaging. Hospice Aide images were obtainedfor the record.COMPARISON: Ultrasound abdomen [...] this study and agree with the abovereport. [facility]2020-12-12 19:24:00 Test Item Value Reference Range Interpretation Comments POCT GLU (test code = 6942728944) 230 mg/dL 70-110 H Lab Interpretation (test code = Abnormal 41496-7) [facility] 1 [id number] 15:16:46 Low lung volumes with mild perihilar [...] have reviewed thisstudy and agree with theabove report.[facility]2020-12-12 14:34:00 Test Item Value Reference Range Interpretation Comments POCT GLU (test code = 3740095077) 225 mg/dL 70-110 H Lab Interpretation (test code = Abnormal 34344-8) [facility] CenterURINE [id number] 13:28:00 Test Item Value Reference Range Interpretation Comments URINE CULTURE (test < 10,000 CFU/mL mixed code = 630-4) aerobic organisms - suggests endogenous microbial contamination [facility] (NA, K, CL, CO2, GLUCOSE, BUN, CREATININE, CA)2020-12-12 10:05:00 Test Item Value Reference Range Interpretation Comments NA (test code = 136 mmol/L 135-145 1783305793) K (test code = 3.5 mmol/L 3.5-5.0 0960746034) CL (test code = 100 mmol/L 98-108 0257505162) CO2 TOTAL (test code = 31 mmol/L 23-31 7858198247) AGAP (test code = 2-16 3264606679) BUN (test code = 7 mg/dL 7-23 5360517078) GLUCOSE (test code = 259 mg/dL 70-110 H 8723309149) CREATININE (test code = 0.63 mg/dL 0.60-1.25 3826125041) CALCIUM (test code = 8.5 mg/dL 8.6-10.6 L 4190246684) eGFR Calculation mL/min/1.73m2 (Non-) (test code = 0095809304) eGFR Calculation mL/min/1.73m2 () (test code = 0321485012) JAMES (test code = JAMES) Association of [...] tests). Lab Interpretation Abnormal (test code = 07615-8) [facility] CenterMagnesium [id number] 10:05:00 Test Item Value Reference Range Interpretation Comments MAGNESIUM (test code = 5076382611) 1.9 mg/dL 1.7-2.4 Lab Interpretation (test code = Normal 18542-0) [facility] with [id number] 09:48:00 Test Item Value Reference Range Interpretation Comments WBC (test code = See_Comment [Automated 6057-2) message] The sy stem which generated this result transmitted reference range : 4.20 - 10.70 10*3/?L. The reference range was not used to interpret this result as normal/abnormal . RBC (test code = See_Comment [Automated 293-8) message] The sy stem which generated this [...] RDW-SD (test code = 46.0 fL 38.5-51.6 79802-1) RDW-CV (test code = 16.1 % 12.1-15.4 H 788-0) PLT (test code = See_Comment H [Automated 777-3) message] The sy stem which generated this result transmitted reference range : 150 - 328 10*3/ ?L. The reference r torito was not used to interpret this result as normal/abnormal . MPV (test code = 8.6 fL 9.8-13.0 L 58741-4) NRBC/100 WBC (test See_Comment [Automat ed code = 6426912352) message] The system which generated this result transmitted reference range : 0.0 - 10.0 /100 WBCs. The refer ence range was not u sed to interpret th is result as normal/abnormal . NRBC x10^3 (test code <0.01 See_Comment [Auto mated = 2150645878) message] The s ystem which generated this result transmitted reference range : 10*3/?L. The reference range was not used to interpret this result as normal/abnormal . GRAN MAT (NEUT) % 70.2 % (test code = 770-8) IMM GRAN % (test code 0.30 % = 7452163164) LYMPH % (test code = 18.8 % 736-9) MONO % (test code = 5.0 % 5905-5) EOS % (test code = 5.2 % 713-8) BASO % (test code = 0.5 % 706-2) GRAN MAT x10^3(ANC) 6.05 10*3/uL 1.99-6.95 (test code = 4403060417) IMM GRAN x10^3 (test 0.03 10*3/uL 0.00-0.06 code = 0995893584) LYMPH x10^3 (test code 1.62 10*3/uL 1.09-3.23 = 731-0) MONO x10^3 (test code 0.43 10*3/uL 0.36-1.02 = 742-7) EOS x10^3 (test code = 0.45 10*3/uL 0.06-0.53 711-2) BASO x10^3 (test code 0.04 10*3/uL 0.01-0.09 = 704-7) Lab Interpretation Abnormal (test code = 16613-2) [facility] GLUCOSE (AUTOMATED)2020-12-12 03:42:00 Test Item Value Reference Range Interpretation Comments POCT GLU (test code = 196 mg/dL 70-110 H Notifi ed Provider [id number]) Lab Interpretation (test Abnormal code = 91472-5) [facility]00 Test Item Value Reference Range Interpretation Comments FOLATE SER (test code = 6307843707) 5.8 ng/mL 3.0-20.0 Lab Interpretation (test code = Normal 56086-8) [facility] B12, [id number] 00:55:00 Test Item Value Reference Range Interpretation Comments VIT B12 (test code = 844 pg/mL 240-930 3511725265) JAMES (test code = JAMES) Biotin has been reported to cause a positive bias, interpret results relative to patient's use of biotin. Lab Interpretation (test Normal code = 43100-3) [facility] GLUCOSE (AUTOMATED)2020-12-12 00:14:00 Test Item Value Reference Range Interpretation Comments POCT GLU (test code = 0298927093) 164 mg/dL 70-110 H Lab Interpretation (test code = Abnormal 52492-1) [facility] CenterCREATINE [id number] 23:42:00 Test Item Value Reference Range Interpretation Comments CK (test code = 8847524852) <20 33-194 L Lab Interpretation (test code = Abnormal 19550-1) [facility] CenterTHYROID STIMULATING [id number] 23:17:00 Test Item Value Reference Range Interpretation Comments TSH (test code = See_Comment Biotin has been 8320726293) reported to cau se a negative bias, interpret resul ts relative to pat ient's use of biotin. [Automated mess age] The system [employer] generated this result transmitted ref erence range: 0.45 - 4 .70 mIU/L. The refe rence range was not u sed to interpret this result as normal/abnor mal. Lab Interpretation (test Normal code = 05962-1) [facility] CenterXR HIPS 3 VW [id number] 21:41:53No appreciable fracture lines. RL: 6200 ICAL HISTORY:Pain. COMPARISON:none TECHNIQUE:XR HIPS 3 VW LEFT performed. Technical Quality: Adequate FINDINGS:There are no appreciable fracture lines or subluxations. ?There is grossanatomic alignment. ?No appreciable joint effusion. Moderate to severe hip joint space narrowing, with arthropathy. Marginalosteophytes and subchondral sclerosis. No osseous erosions. Gamb, Radiant Results Inft User -12/11/2020 3:43 PM CSTCLINICAL HISTORY:Pain.COMPARISON:noneTECHNIQUE:XR HIPS 3 VW LEFT performed. Technical Quality: AdequateFINDINGS:There are no appreciable fracture lines or subluxations. There isgrossanatomic alignment. No appreciable joint effusion.Moderate to severe hip joint space narrowing, with arthropathy. Marginalosteophytes and subchondral sclerosis. No osseous erosions.IMPRESSIONNo appreciable fracture lines.RL: 6200 [facility]icsPROCALCITONIN2021-[facility]-01 20:00:00 Test Item Value Reference Range Interpretation Comments Procalcitonin (test 0.13 ng/mL <0.07 H code = 8732041328) JAMES (test code = JAMES) INTERPRETATION OF [...] lung abscess/empyema. For further information please refer to:[email or web address] Lab Interpretation Abnormal (test code = 98374-3) [facility]PO[facility])2020-12-11 19:07:00 Test Item Value Reference Range Interpretation Comments POCT GLU (test code = 0443693746) 274 mg/dL 70-110 H Lab Interpretation (test code = Abnormal 85938-3) [facility] CenterMAGNESIUM2021-03-01 18:31:00 Test Item Value Reference Range Interpretation Comments MAGNESIUM (test code = 3052376423) 1.9 mg/dL 1.7-2.4 Lab Interpretation (test code = Normal 13854-2) [facility] CenterFERRITIN [id number] 18:31:00 Test Item Value Reference Range Interpretation Comments FERRITIN (test code = 178.0 ng/mL 18.0-464.0 4467973578) JAMES (test code = JAMES) Biotin has been reported to cause a negative bias, interpret results relative to patient's use of biotin. Lab Interpretation (test Normal code = 13963-8) [facility] CenterCT HEAD WO [id number] 14:36:47 No acute intracranial abnormality. Dilated ventricles [...] reviewed this study and agree with the abovereport.[facility] CenterURINALYSIS2021-03-01 14:28:00 Test Item Value Reference Range Interpretation Comments APPEARANCE (test code = Clear Clear 5707769335) COLOR (test code = Yellow Yellow 7249404010) PH (test code = 4.8-8.0 3777546794) SP GRAVITY (test code = 1.003-1.030 2487642698) GLU U QUAL (test code = 500 mg/dL Normal A 6115591127) BLOOD (test code = Negative Negative 9835538346) KETONES (test code = 5 mg/dL Negative A 5892496252) PROTEIN (test code = Negative Negative 2887-8) UROBILIN (test code = Normal Normal 4265717862) BILIRUBIN (test code = Negative Negative 9778274659) NITRITE (test code = Negative Negative 4437530975) LEUK RYAN (test code = Negative Negative 3289206718) RBC/HPF (test code = See_Comment [Autom ated message] 5878042005) The system [employer] generated this result transmit ronan reference range : 0 - 3 HPF. The refe rence range was not u sed to interpret th is result as normal/abnormal . WBC/HPF (test code = See_Comment [Autom ated message] 7451576435) The system [employer] generated this result transmit ronan reference range : 0 - 5 HPF. The refe rence range was not u sed to interpret th is result as normal/abnormal . BACTERIA (test code = Negative Negative 5964083362) MUCOUS (test code = Slight Negative LPF A 5339080634) SQ EPITH (test code = HPF 3744834847) Lab Interpretation (test Abnormal code = 52434-6) [facility] CenterCOVID-19 (ID NOW RAPID TESTING)2020-12-11 13:10:00 Test Item Value Reference Range Interpretation Comments SARS-CoV-2 Rapid ID NOW Not Detected Not Detected (test code = 82022-7) JAMES (test code = JAMES) ID NOW COVID-19 Assay is an isothermal nucleic acid amplification test intended for the qualitative detection of nucleic acid from SARS-CoV-2 viral RNA in nasopharyngeal ([employer] TECHNICIAN) specimens. It is used under Emergency Use [...] indicated. Lab Interpretation Normal (test code = 40659-1) [facility] CenterCOM. METABOLIC PANEL (89837)2020-12-11 12:29:00 Test Item Value Reference Range Interpretation Comments NA (test code = 136 mmol/L 135-145 0813603407) K (test code = 3.5 mmol/L 3.5-5.0 4404864540) CL (test code = 95 mmol/L 98-108 L 2718145444) CO2 TOTAL (test code = 35 mmol/L 23-31 H 4731881868) AGAP (test code = 2-16 3775694734) BUN (test code = 9 mg/dL 7-23 0059997371) GLUCOSE (test code = 329 mg/dL 70-110 H 6924724584) CREATININE (test code = 0.72 mg/dL 0.60-1.25 8091341687) TOTAL BILI (test code = 0.6 mg/dL 0.1-1.4 4266082998) CALCIUM (test code = 9.0 mg/dL 8.6-10.6 2023877615) T PROTEIN (test code = 6.8 g/dL 6.3-8.2 0879221705) ALBUMIN (test code = 3.8 g/dL 3.5-5.0 5518626868) ALK PHOS (test code = 288 U/L 34-122 H 7597194937) ALTv (test code = 46 U/L 5-50 2-6) AST(SGOT) (test code = 38 U/L 13-40 4523719614) eGFR Calculation mL/min/1.73m2 (Non-) (test code = 4810689191) eGFR Calculation mL/min/1.73m2 () (test code = 0247656221) JAMES (test code = JAMES) Association of [...] tests). Lab Interpretation Abnormal (test code = 03188-4) [facility] CenterLactic Acid Whole Jkvpg9831-87-29 12:23:00 Test Item Value Reference Range Interpretation Comments LACTIC ACID (test code = 2.09 mmol/L 0.50-2.20 3188236898) Lab Interpretation (test code = Normal 12403-6) [facility] CenterCB WITH [id number] 12:17:00 Test Item Value Reference Range Interpretation [...] RDW-SD (test code = 44.9 fL 38.5-51.6 85269-8) RDW-CV (test code = 15.9 % 12.1-15.4 H 788-0) PLT (test code = See_Comment H [Automated 777-3) message] The sy stem which generated this result transmitted reference range : 150 - 328 10*3/ ?L. The reference r torito was not used to interpret this result as normal/abnormal . MPV (test code = 8.3 fL 9.8-13.0 L 85279-9) NRBC/100 WBC (test See_Comment [Automat ed code = 9253017789) message] The system which generated this result transmitted reference range : 0.0 - 10.0 /100 WBCs. The refer ence range was not u sed to interpret th is result as normal/abnormal . NRBC x10^3 (test code <0.01 See_Comment [Auto mated = 2091398472) message] The s ystem which generated this result transmitted reference range : 10*3/?L. The reference range was not used to interpret this result as normal/abnormal . GRAN MAT (NEUT) % 77.9 % (test code = 770-8) IMM GRAN % (test code 0.50 % = 6189584910) LYMPH % (test code = 12.2 % 736-9) MONO % (test code = 5.2 % 5905-5) EOS % (test code = 3.7 % 713-8) BASO % (test code = 0.5 % 706-2) GRAN MAT x10^3(ANC) 9.57 10*3/uL 1.99-6.95 H (test code = 9869520036) IMM GRAN x10^3 (test 0.06 10*3/uL 0.00-0.06 code = 2342548731) LYMPH x10^3 (test code 1.50 10*3/uL 1.09-3.23 = 731-0) MONO x10^3 (test code 0.64 10*3/uL 0.36-1.02 = 742-7) EOS x10^3 (test code = 0.46 10*3/uL 0.06-0.53 711-2) BASO x10^3 (test code 0.06 10*3/uL 0.01-0.09 = 704-7) Lab Interpretation Abnormal (test code = 32004-6) [facility] CenterLAB ONLY COVID [id number] 18:43:00COVID DMT InterpretationInterpretation/Recommendations: Molecular NAAT Test Results [...] a nasopharyngeal sample, there is approximately a xqo-wn-yfwls chance that the patient was infected and [...] based upon aggregate data pooled from the [facility] medical record including both current and prior COVID-19 related testing results for the following tests offered at our institution:A. Tests for the Identification of SARS-CoV-2 RNA:SARS-CoV-2 PCR assays including [place] Aptima, [place] Fusion, Barrett RealTime, and [employer] Xpert Xpress. SARS-CoV-2 Rapid ID NOW by the ID NOW assay. ? B. Tests for the Identification of SARS-CoV-2 Antibodies: Chemiluminescent immunoassays including Access SARS-CoV-2 IgM (DXI 600), [employer] TechnologiesS Jfsx-CDYS-CzB-2 IgG (Vitros 5600 and Vitros 3600), and Barrett SARS-CoV-2 IgG (UNINDENTURED APPRENTICE I System). These interpretation comments assume that only the above testing was utilized and that the approved acceptable specimen type(s) were used for a given test. These interpretations are autopopulated into [employer] based on computerized algorithms matching an interpretation code number to the patient's set of test results. While a clinical pathologist evaluates the combinations for clinical accuracy, clinical correlation is recommended as it may not take into account very remote prior testing. Furthermore, it does not consider testing a patient may have had outside of the [facility] system. Additionally, it should be noted that the computerized algorithm treats the results for PCR testing and Rapid ID NOW testing (also PCR) synonymously, and thus, refers to both testing methodologies as PCR tests. Given that the sensitivity of [facility]'s Rapid ID NOW testingplatform is analogous to [...] panel may be beneficial in this setting. [facility] LABORATORY SERVICESCOVID YquuewxHSOQ-HfA-0 Rapid ID NOW (no units) ? ? Date ? Value ? 08/21/2020 ? Not Detected ? [facility] SERVICESUnHow[facility]2020-08-23 18:25:00 Test Item Value Reference Range Interpretation Comments POCT GLU (test code = 8102166860) 297 mg/dL 70-110 H Lab Interpretation (test code = Abnormal 13962-6) [facility] GLUCOSE (AUTOMATED)2020-08-23 14:25:00 Test Item Value Reference Range Interpretation Comments POCT GLU (test code = 4096161810) 181 mg/dL 70-110 H Lab Interpretation (test code = Abnormal 56006-0) [facility] CenterBasic Metabolic Panel (NA, K, CL, CO2, GLUCOSE, BUN, CREATININE, CA)2020-08-23 11:45:00 Test Item Value Reference Range Interpretation Comments NA (test code = 132 mmol/L 135-145 L 2463859619) K (test code = 4.0 mmol/L 3.5-5 9993510495) CL (test code = 96 mmol/L 98-108 L 2648070793) CO2 TOTAL (test code = 33 mmol/L 23-31 H 1034144386) AGAP (test code = 2-16 1820153765) BUN (test code = 9 mg/dL 7-23 5688740050) GLUCOSE (test code = 176 mg/dL 70-110 H 5922838657) CREATININE (test code = 0.66 mg/dL 0.6-1.25 6369382472) CALCIUM (test code = 8.5 mg/dL 8.6-10.6 L 0111672281) eGFR Calculation mL/min/1.73m2 (Non-) (test code = 3726466054) eGFR Calculation mL/min/1.73m2 () (test code = 5539252096) JAMES (test code = JAMES) Association of [...] tests). Lab Interpretation Abnormal (test code = 38198-5) [facility] CenterMagnesium Ufhzv7893-74-87 11:45:00 Test Item Value Reference Range Interpretation Comments MAGNESIUM (test code = 0257285030) 2.0 mg/dL 1.7-2.4 Lab Interpretation (test code = Normal 57616-1) [facility] CenterCB with Ewzcyvpojgwa9070-91-81 11:38:00 Test Item Value Reference Range Interpretation [...] RDW-SD (test code = 41.8 fL 38.5-51.6 55777-7) RDW-CV (test code = 14.3 % 12.1-15.4 788-0) PLT (test code = See_Comment H [Automated 777-3) message] The sy stem which generated this result transmitted reference range : 150 - 328 10*3/ ?L. The reference r torito was not used to interpret this result as normal/abnormal . MPV (test code = 8.0 fL 9.8-13 L 09992-7) NRBC/100 WBC (test See_Comment [Automat ed code = 5340427361) message] The system which generated this result transmitted reference range : 0.0 - 10.0 /100 WBCs. The refer ence range was not u sed to interpret th is result as normal/abnormal . NRBC x10^3 (test code <0.01 See_Comment [Auto mated = 3600080574) message] The s ystem which generated this result transmitted reference range : 10*3/?L. The reference range was not used to interpret this result as normal/abnormal . GRAN MAT (NEUT) % 61.5 % (test code = 770-8) IMM GRAN % (test code 2.00 % = 7597648949) LYMPH % (test code = 25.5 % 736-9) MONO % (test code = 6.3 % 5905-5) EOS % (test code = 3.7 % 713-8) BASO % (test code = 1.0 % 706-2) GRAN MAT x10^3(ANC) 5.29 10*3/uL 1.99-6.95 (test code = 4132097351) IMM GRAN x10^3 (test 0.17 10*3/uL 0-0.06 H code = 5620631279) LYMPH x10^3 (test code 2.19 10*3/uL 1.09-3.23 = 731-0) MONO x10^3 (test code 0.54 10*3/uL 0.36-1.02 = 742-7) EOS x10^3 (test code = 0.32 10*3/uL 0.06-0.53 711-2) BASO x10^3 (test code 0.09 10*3/uL 0.01-0.09 = 704-7) Lab Interpretation Abnormal (test code = 58086-6) [facility] GLUCOSE (AUTOMATED)2020-08-23 10:22:00 Test Item Value Reference Range Interpretation Comments POCT GLU (test code = 9580934882) 164 mg/dL 70-110 H Lab Interpretation (test code = Abnormal 36282-6) [facility] GLUCOSE (AUTOMATED)2020-08-23 05:56:00 Test Item Value Reference Range Interpretation Comments POCT GLU (test code = 4795380812) 242 mg/dL 70-110 H Lab Interpretation (test code = Abnormal 57685-0) [facility] GLUCOSE (AUTOMATED)2020-08-23 03:02:00 Test Item Value Reference Range Interpretation Comments POCT GLU (test code = 1252619320) 210 mg/dL 70-110 H Lab Interpretation (test code = Abnormal 84494-9) [facility] GLUCOSE (AUTOMATED)2020-08-22 23:40:00 Test Item Value Reference Range Interpretation Comments POCT GLU (test code = 1230963428) 267 mg/dL 70-110 H Lab Interpretation (test code = Abnormal 09975-5) [facility] GLUCOSE (AUTOMATED)2020-08-22 19:08:00 Test Item Value Reference Range Interpretation Comments POCT GLU (test code = 1223645157) 191 mg/dL 70-110 H Lab Interpretation (test code = Abnormal 65445-1) [facility] GLUCOSE (AUTOMATED)2020-08-22 13:50:00 Test Item Value Reference Range Interpretation Comments POCT GLU (test code = 9976928426) 174 mg/dL 70-110 H Lab Interpretation (test code = Abnormal 53369-4) [facility] CenterURINE [id number] 12:59:00 Test Item Value Reference Range Interpretation Comments URINE CULTURE (test No aerobic growth (< code = 630-4) 1000 CFU/mL) [facility] with Kkkxzguoefmg1415-56-26 11:28:00 Test Item Value Reference Range Interpretation Comments WBC (test code = See_Comment [Automated 3790-2) message] The sy stem which generated this result transmitted reference range : 4.20 - 10.70 10*3/?L. The reference range was not used to interpret this result as normal/abnormal . RBC (test code = See_Comment L [Automated 469-8) message] The sy stem which generated this [...] RDW-SD (test code = 42.5 fL 38.5-51.6 07038-2) RDW-CV (test code = 14.5 % 12.1-15.4 788-0) PLT (test code = See_Comment H [Automated 777-3) message] The sy stem which generated this result transmitted reference range : 150 - 328 10*3/ ?L. The reference r torito was not used to interpret this result as normal/abnormal . MPV (test code = 8.0 fL 9.8-13 L 81712-9) NRBC/100 WBC (test See_Comment [Automat ed code = 0902473678) message] The system which generated this result transmitted reference range : 0.0 - 10.0 /100 WBCs. The refer ence range was not u sed to interpret th is result as normal/abnormal . NRBC x10^3 (test code <0.01 See_Comment [Auto mated = 3314500991) message] The s ystem which generated this result transmitted reference range : 10*3/?L. The reference range was not used to interpret this result as normal/abnormal . GRAN MAT (NEUT) % 69.1 % (test code = 770-8) IMM GRAN % (test code 2.20 % = 7697419799) LYMPH % (test code = 20.9 % 736-9) MONO % (test code = 5.8 % 5905-5) EOS % (test code = 1.0 % 713-8) BASO % (test code = 1.0 % 706-2) GRAN MAT x10^3(ANC) 6.51 10*3/uL 1.99-6.95 (test code = 3055533846) IMM GRAN x10^3 (test 0.21 10*3/uL 0-0.06 H code = 2357914225) LYMPH x10^3 (test code 1.97 10*3/uL 1.09-3.23 = 731-0) MONO x10^3 (test code 0.55 10*3/uL 0.36-1.02 = 742-7) EOS x10^3 (test code = 0.09 10*3/uL 0.06-0.53 711-2) BASO x10^3 (test code 0.09 10*3/uL 0.01-0.09 = 704-7) BASO STIPPLING (test Present A code = 703-9) BANDS (test code = Increased A 5053321656) TOXIC CHANGES (test Present A code = 803-7) Lab Interpretation Abnormal (test code = 67747-0) [facility] Metabolic Panel (NA, K, CL, CO2, GLUCOSE, BUN, CREATININE, CA)2020-08-22 11:12:00 Test Item Value Reference Range Interpretation Comments NA (test code = 135 mmol/L 135-145 2980982641) K (test code = 3.6 mmol/L 3.5-5 1122434021) CL (test code = 99 mmol/L 98-108 2275281466) CO2 TOTAL (test code = 31 mmol/L 23-31 6953998077) AGAP (test code = 2-16 1830085325) BUN (test code = 9 mg/dL 7-23 7036975730) GLUCOSE (test code = 198 mg/dL 70-110 H 3077772760) CREATININE (test code = 0.72 mg/dL 0.6-1.25 1943969981) CALCIUM (test code = 8.3 mg/dL 8.6-10.6 L 0531490985) eGFR Calculation mL/min/1.73m2 (Non-) (test code = 9129438817) eGFR Calculation mL/min/1.73m2 () (test code = 6958511731) JAMES (test code = JAMES) Association of [...] tests). Lab Interpretation Abnormal (test code = 17723-8) [facility] CenterMagnesium Mnrem5088-19-13 11:12:00 Test Item Value Reference Range Interpretation Comments MAGNESIUM (test code = 2567153072) 2.0 mg/dL 1.7-2.4 Lab Interpretation (test code = Normal 67220-6) [facility] CenterLipid Panel (Total Cholesterol, Triglycerides, HDL) - Gzximuh3110-08-65 11:12:00 Test Item Value Reference Range Interpretation Comments CHOL (test code = 155 mg/dL 120-200 3536800782) HDL (test code = 42 mg/dL >40 4100641140) HDLC RATIO (test code = See_Comment [Au tomated message] 1925082608) The system [employer] generated this result transmit ronan reference range : <=5.0. The refe rence range was not u sed to interpret th is result as normal/abnormal . TRIG (test code = 186 mg/dL 30-170 H 2605709427) LDL CHOL (test code = 76 mg/dL See_Comment [Auto mated message] 75827-1) The system [employer] generated this result transmit ronan reference range : <=160. The refe rence range was not u sed to interpret th is result as normal/abnormal . VLDL (test code = 37 mg/dL 5-60 9310553570) Lab Interpretation (test Abnormal code = 60119-8) [facility] CenterHEPATIC FUNCTION PANEL (46028) (ALB,T.PRO,BILI T,BU/BC,ALT,AST,ALK PHOS)2020-08-22 11:12:00 Test Item Value Reference Range Interpretation Comments TOTAL BILI (test code = 6431084820) 0.6 mg/dL 0.1-1.1 BILI UNCON (test code = 2334553101) 0.2 mg/dL 0.1-1.1 BILI CONJ (test code = 3902629983) 0.0 mg/dL 0-0.3 T PROTEIN (test code = 8677441564) 6.0 g/dL 6.3-8.2 L ALBUMIN (test code = 5683387800) 2.8 g/dL 3.5-5 L ALK PHOS (test code = 3498608787) 222 U/L 34-122 H ALTv (test code = 1742-6) 27 U/L 5-50 AST(SGOT) (test code = 4716675021) 30 U/L 13-40 Lab Interpretation (test code = Abnormal 25727-0) [facility] GLUCOSE (AUTOMATED)2020-08-22 10:11:00 Test Item Value Reference Range Interpretation Comments POCT GLU (test code = 3871586629) 196 mg/dL 70-110 H Lab Interpretation (test code = Abnormal 47603-0) [facility] GLUCOSE (AUTOMATED)2020-08-22 07:15:00 Test Item Value Reference Range Interpretation Comments POCT GLU (test code = 8845306246) 183 mg/dL 70-110 H Lab Interpretation (test code = Abnormal 69467-4) [facility] GLUCOSE (AUTOMATED)2020-08-22 02:30:00 Test Item Value Reference Range Interpretation Comments POCT GLU (test code = 8944102225) 295 mg/dL 70-110 H Lab Interpretation (test code = Abnormal 50493-5) [facility] GLUCOSE (AUTOMATED)2020-08-21 23:46:00 Test Item Value Reference Range Interpretation Comments POCT GLU (test code = 7369135189) 258 mg/dL 70-110 H Lab Interpretation (test code = Abnormal 50419-7) [facility] CenterC-REACTIVE STNWDNW6315-57-61 18:50:00 Test Item Value Reference Range Interpretation Comments CRP (test code = 3503563362) 15.5 mg/dL <0.8 H Lab Interpretation (test code = Abnormal 52194-2) [facility]2020-08-21 18:21:00 Test Item Value Reference Range Interpretation Comments POCT GLU (test code = 8350497586) 297 mg/dL 70-110 H Lab Interpretation (test code = Abnormal 20721-0) [facility] CenterETHANOL2020-11-09 16:24:00 Test Item Value Reference Range Interpretation Comments ALCOHOL (test code = <10 mg/dL 1917739091) JAMES (test code = Toxic Greater than or JAMES) equal to 80 mg/dL. NOTE: Whole blood values are approximately 10% to 15% lower than serum and plasma. [facility] CenterGALV/CLC ONLY - URINE DRUG (IMMUNOASSAY) - 4 ER OVTNE3275-17-30 15:36:00 Test Item Value Reference Range Interpretation Comments AMPHET (test code = Negative Negative 9594088912) Cocaine Metabolite (test Negative Negative code = 4465244477) OPIATES (test code = Presumptive Positive Negative A 0931409517) THC (test code = Negative Negative 1536703814) JAMES (test code = JAMES) Urine Drug Cutoff Ranges Amphetamine: ? 1,000 ng/mLCocaine: ? 150 ng/mLOpiates: ? 300 ng/mLCannabinoids: ?50 ng/mL The results are to be used only for medical (i.e., treatment) purposes. Unconfirmed screening results must not be used for non-medical purposes (e.g., employment testing, legal testing). Lab Interpretation (test Abnormal code = 58466-1) [facility] ONLY - SYPHILIS IGG/ZMG3934-61-83 15:04:00 Test Item Value Reference Range Interpretation Comments Syphilis IgG/IgM (test Non-reactive Non-reactive code = 98991-6) JAMES (test code = JAMES) Non-reactive - No serologic evidence of T. pallidum infection. Cannot exclude incubating or early syphilis. Submit a second specimen in 2-4 weeks if syphilis is clinically suspected. Equivocal - Further testing to follow. Reactive - Further testing to follow. Lab Interpretation (test Normal code = 84753-1) [facility] 14[facility]52[facility]00 Test Item Value Reference Range Interpretation Comments APPEARANCE (test code = Clear Clear 0060468670) COLOR (test code = Yellow Yellow 2821721699) PH (test code = 4.8-8.0 0447020641) SP GRAVITY (test code = 1.003-1.030 2713329330) GLU U QUAL (test code = 500 mg/dL Normal A 4755995394) BLOOD (test code = Negative Negative 2245557630) KETONES (test code = 20 mg/dL Negative A 1104584360) PROTEIN (test code = Negative Negative 2887-8) UROBILIN (test code = Normal Normal 1355812532) BILIRUBIN (test code = Negative Negative 5131975317) NITRITE (test code = Negative Negative 7851590534) LEUK RYAN (test code = Negative Negative 7920625000) RBC/HPF (test code = <1 See_Comment [Autom ated message] 2873401693) The system [employer] generated this result transmit ronan reference range : 0 - 3 HPF. The refe rence range was not u sed to interpret th is result as normal/abnormal . WBC/HPF (test code = See_Comment [Autom ated message] 6839384453) The system [employer] generated this result transmit ronan reference range : 0 - 5 HPF. The refe rence range was not u sed to interpret th is result as normal/abnormal . BACTERIA (test code = Negative Negative 6131838003) MUCOUS (test code = Slight Negative LPF A 9759654100) Lab Interpretation (test Abnormal code = 15128-6) [facility] CenterACTIV[facility] PARTIAL THRMPLAS [id number] 13:45:00 Test Item Value Reference Range Interpretation Comments APTT Patient (test code = See_Comment [ Automated message] 3173-2) The system [employer] generated this result transmitted ref erence range: 26 - 36 Seconds. The re ference range was not u sed to interpret this result as normal/abnor mal. Lab Interpretation (test Normal code = 41183-9) [facility] 13:45:00 Test Item Value Reference Range Interpretation Comments POCT GLU (test code = 1485069240) 246 mg/dL 70-110 H Lab Interpretation (test code = Abnormal 19844-0) [facility]V 1/2 AG-AB WITH [id number] 12:32:00 Test Item Value Reference Range Interpretation Comments HIV Negative Negative Semi-quantitative (test code = 10918-9) JAMES (test code = Non-reactive for HIV-1 JAMES) antigen and HIV-1/HIV-2 antibodies. ?No laboratory evidence of HIV infection. ?Repeat in 2-4 weeks if acute HIV infection is suspected. [facility] CenterCB WITH [id number] 12:18:00 Test Item Value Reference Range Interpretation Comments WBC (test code = See_Comment [Automated 9590-2) message] The sy stem which generated this [...] RDW-SD (test code = 44.4 fL 38.5-51.6 36238-9) RDW-CV (test code = 14.5 % 12.1-15.4 788-0) PLT (test code = See_Comment H [Automated 777-3) message] The sy stem which generated this result transmitted reference range : 150 - 328 10*3/ ?L. The reference r torito was not used to interpret this result as normal/abnormal . MPV (test code = 8.5 fL 9.8-13 L 17382-2) NRBC/100 WBC (test See_Comment [Automat ed code = 6266751640) message] The system which generated this result transmitted reference range : 0.0 - 10.0 /100 WBCs. The refer ence range was not u sed to interpret th is result as normal/abnormal . NRBC x10^3 (test code <0.01 See_Comment [Auto mated = 0980536544) message] The s ystem which generated this result transmitted reference range : 10*3/?L. The reference range was not used to interpret this result as normal/abnormal . GRAN MAT (NEUT) % 90.4 % (test code = 770-8) IMM GRAN % (test code 1.30 % = 6522439722) LYMPH % (test code = 7.1 % 736-9) MONO % (test code = 0.5 % 5905-5) EOS % (test code = 0.1 % 713-8) BASO % (test code = 0.6 % 706-2) GRAN MAT x10^3(ANC) 7.74 10*3/uL 1.99-6.95 H (test code = 1702533012) IMM GRAN x10^3 (test 0.11 10*3/uL 0-0.06 H code = 6533296737) LYMPH x10^3 (test code 0.61 10*3/uL 1.09-3.23 L = 731-0) MONO x10^3 (test code 0.04 10*3/uL 0.36-1.02 L = 742-7) EOS x10^3 (test code = <0.03 0.06-0.53 L 711-2) BASO x10^3 (test code 0.05 10*3/uL 0.01-0.09 = 704-7) POLYCHROMASIA (test 2+ See_Comment [Automa ronan code = 42966-2) message] The system which generated this result transmitted reference range : 2+. The referen ce range was not u sed to interpret th is result as normal/abnormal . BANDS (test code = Increased A 4141858038) Lab Interpretation Abnormal (test code = 08323-8) [facility] CenterPROCALCITONIN2020-11-09 11:48:00 Test Item Value Reference Range Interpretation Comments Procalcitonin (test 0.36 ng/mL <0.07 H code = 6784875144) JAMES (test code = JAMES) INTERPRETATION OF [...] lung abscess/empyema. For further information please refer to:[email or web address] Lab Interpretation Abnormal (test code = 00894-0) [facility] CenterLAKSATE [id number] 10:53:00 Test Item Value Reference Range Interpretation Comments LDH (test code = 6289642057) 351 U/L 300-600 Lab Interpretation (test code = Normal 00599-8) [facility] CenterSEDIMENTATION [id number] 10:07:00 Test Item Value Reference Range Interpretation Comments ESR (test code = See_Comment H [Automated message] 7561114767) The system [employer] generated this result transmitted ref erence range: 0 - 10 m m/HR. The reference r torito was not used to interpret this result as normal/abnor mal. Lab Interpretation (test Abnormal code = 89795-0) [facility] CenterPOKS [facility]UCOSE (AUT[facility]ATED)2020-08-21 09:45:00 Test Item Value Reference Range Interpretation Comments POCT GLU (test code = 7866623958) 287 mg/dL 70-110 H Lab Interpretation (test code = Abnormal 47690-7) [facility] CenterGlycosylated Hemoglobin (A1C)2020-08-21 09:29:00 Test Item Value Reference Range Interpretation Comments HGB A1C (test code = 4548-4) 9.8 % 4-6 H Lab Interpretation (test code = Abnormal 47677-8) [facility] CenterCOVID-19 (ID NOW RAPID TESTING)2020-08-21 09:13:00 Test Item Value Reference Range Interpretation Comments SARS-CoV-2 Rapid ID NOW Not Detected Not Detected (test code = 88688-7) JAMES (test code = JAMES) ID NOW COVID-19 Assay is an isothermal nucleic acid amplification test intended for the qualitative detection of nucleic acid from SARS-CoV-2 viral RNA in nasopharyngeal ([employer] TECHNICIAN) specimens. It is used under Emergency Use [...] indicated. Lab Interpretation Normal (test code = 16944-3) [facility] CenterProthrombin Time / [id number] 08:59:00 Test Item Value Reference Range Interpretation Comments PROTIME PATIENT (test See_Comment H [Auto mated message] code = 5964-2) The system [employer] generated this result transmitted ref erence range: 10.1 - 1 2.6 Seconds. The reference range was not used to int erpret this result as normal/abnormal . INR (test code = 6301-6) Nor mal INR <1.1; Warfarin Therap eutic range 2.0 to 3. 0 or 2.5 to 3.5, dep ending upon the indica tions. Lab Interpretation (test Abnormal code = 58673-4) [facility] CenteraPTT2020-11-09 08:59:00 Test Item Value Reference Range Interpretation Comments APTT Patient (test code = See_Comment [ Automated message] 3173-2) The system [employer] generated this result transmitted ref erence range: 26 - 36 Seconds. The re ference range was not u sed to interpret this result as normal/abnor mal. Lab Interpretation (test Normal code = 95316-5) [facility] CenterBASI METABOLIC PANEL (NA, K, CL, CO2, GLUCOSE, BUN, CREATININE, CA)2020-08-21 08:52:00 Test Item Value Reference Range Interpretation Comments NA (test code = 136 mmol/L 135-145 5570889791) K (test code = 4.3 mmol/L 3.5-5 2319848507) CL (test code = 104 mmol/L 98-108 5964016363) CO2 TOTAL (test code = 24 mmol/L 23-31 7158507648) AGAP (test code = 2-16 1552944688) BUN (test code = 8 mg/dL 7-23 3953810110) GLUCOSE (test code = 308 mg/dL 70-110 H 0803379637) CREATININE (test code = 0.72 mg/dL 0.6-1.25 7904920367) CALCIUM (test code = 7.8 mg/dL 8.6-10.6 L 0724000309) eGFR Calculation mL/min/1.73m2 (Non-) (test code = 7409875951) eGFR Calculation mL/min/1.73m2 () (test code = 7863819178) JAMES (test code = JAMES) Association of [...] tests). Lab Interpretation Abnormal (test code = 16517-4) [facility] CenterHEPATIC FUNCTION PANEL (95233) (ALB,T.PRO,BILI T,BU/BC,ALT,AST,ALK PHOS)2020-08-21 08:52:00 Test Item Value Reference Range Interpretation Comments TOTAL BILI (test code = 6119308896) 0.8 mg/dL 0.1-1.1 BILI UNCON (test code = 4804715499) 0.3 mg/dL 0.1-1.1 BILI CONJ (test code = 3068231804) 0.0 mg/dL 0-0.3 T PROTEIN (test code = 1901395801) 5.7 g/dL 6.3-8.2 L ALBUMIN (test code = 4579254015) 2.7 g/dL 3.5-5 L ALK PHOS (test code = 3668371426) 245 U/L 34-122 H ALTv (test code = 1742-6) 37 U/L 5-50 AST(SGOT) (test code = 7219395435) 43 U/L 13-40 H Lab Interpretation (test code = Abnormal 54383-8) [facility]
[2021-12-10] MEDS ORDERED: HYDROMORPHONE HCL 2 MG/ML inj ONE (08:41)
--- NOTE | 2021-12-10 09:04 | ER ---
Nurse's Notes [facility] Name: Kiel Ngo Age: 71 yrs Sex: Male : 1950 Arrival Date: 12/10/2021 Time: 08:29 Bed 7 Private MD: Diagnosis: Chronic pain Presentation: 12/10 08:30 Chief complaint: EMS states: RLE PAIN. Coronavirus screen: At this time, the client bp does not indicate any symptoms associated with coronavirus-19. Ebola Screen: No symptoms or risks identified at this time. Initial Sepsis Screen: Does the patient meet any 2 criteria? No. Patient's initial sepsis screen is negative. Does the patient have a suspected source of infection? No. Patient's initial sepsis screen is negative. Risk Assessment: Do you want to hurt yourself or someone else? Patient reports no desire to harm self or others. Onset of symptoms is unknown. 08:30 Method Of Arrival: EMS: [facility] bp 08:30 Acuity: JOZEF 3 bp Triage Assessment: 08:30 General: Appears distressed, uncomfortable, obese, Behavior is cooperative, appropriate bp for age, anxious. Pain: Complains of pain in right leg. EENT: No deficits noted. Neuro: No deficits noted. Cardiovascular: No deficits noted. Respiratory: No deficits noted. GI: No signs and/or symptoms were reported involving the gastrointestinal system. : No signs and/or symptoms were reported regarding the genitourinary system. Derm: Rash noted that is red, on right leg and left leg. Musculoskeletal: Reports pain in right leg. Historical: - Allergies: 08:29 Demerol; bp 08:29 metformin; bp 08:29 Morphine; bp - PMHx: 08:29 Atrial fibrillation; chronic back pain; neuropathy; bp - PSHx: 08:29 back sx; PANCREAS SX; R. Ankle SX; bp - Immunization history:: Adult Immunizations up to date. - Social history:: Smoking status: Patient denies any tobacco usage or history of. Screenin:30 Abuse screen: Denies threats or abuse. Denies injuries from another. Nutritional bp screening: No deficits noted. Tuberculosis screening: No symptoms or risk factors identified. Fall Risk None identified. Assessment: 08:30 General: SEE TRIAGE NOTE. bp 09:20 Reassessment: PT TBDC, TRANSPORT PENDING. bp 10:24 Reassessment: PT D/C HOME VIA AMBULANCE. bp Vital Signs: 08:30 BP 132 / 67; Pulse 75; Resp 17; Pulse Ox 97% on R/A; bp 08:30 BP 137 / 69; Pulse 68; Resp 18; Temp 97.5; Pulse Ox 100% ; Weight 86.18 kg; Height 5 mb7 ft. 11 in. (180.34 cm); 09:20 BP 124 / 69; Pulse 63; Resp 17; Pulse Ox 96% ; bp 08:30 Body Mass Index 26.50 (86.18 kg, 180.34 cm) mb7 ED Course: 08:29 Patient arrived in ED. bp 08:30 Kirby Short PA is PHCP. parris 08:30 Stu Banerjee MD is Attending Physician. jmm 08:30 Arm band placed on. bp 08:30 Patient has correct armband on for positive identification. Bed in low position. Call bp light in reach. Side rails up X2. 08:31 Triage completed. bp 08:31 Quoc Demarco, RN is Primary Nurse. bp 09:20 No provider procedures requiring assistance completed. Patient did not have IV access bp during this emergency room visit. Administered Medications: 08:42 Drug: Dilaudid (HYDROmorphone) 2 mg Route: IM; Site: right deltoid; bp 09:21 Follow up: Response: Pain is decreased bp Outcome: 09:04 Discharge ordered by . jm 10:24 Discharged to home via ambulance. bp 10:24 Condition: stable 10:24 Discharge instructions given to patient, Instructed on discharge instructions, follow up and referral plans. Demonstrated understanding of instructions, follow-up care. 10:25 Patient left the ED. bp Signatures: Kirby Short PA PA jmm Peltier, Brian, RN RN bp Emelia Beard mb7
--- NOTE | 2021-12-10 09:04 | EDPHYS ---
Physician Documentation [facility] Name: Kiel Ngo Age: 71 yrs Sex: Male : 1950 Arrival Date: 12/10/2021 Time: 08:29 Bed 7 Private MD: ED Physician Stu Banerjee HPI: 12/10 08:31 This 71 yrs old Male presents to ER via EMS with complaints of Leg Pain - RIGHT. jmm 08:31 The patient presents with pain, that is chronic. The complaints affect the right leg. jmm Modifying factors: The symptoms are alleviated by nothing. the symptoms are aggravated by nothing. Associated signs and symptoms: Pertinent negatives calf tenderness, fever, swelling, tingling, vomiting, warmth, weakness. The patient has experienced similar episodes in the past, chronically. Historical: - Allergies: 08:29 Demerol; bp 08:29 metformin; bp 08:29 Morphine; bp - PMHx: 08:29 Atrial fibrillation; chronic back pain; neuropathy; bp - PSHx: 08:29 back sx; PANCREAS SX; R. Ankle SX; bp - Immunization history:: Adult Immunizations up to date. - Social history:: Smoking status: Patient denies any tobacco usage or history of. ROS: 08:31 Constitutional: Negative for fever, chills, and weight loss, Cardiovascular: Negative jmm for chest pain, palpitations, and edema, Respiratory: Negative for shortness of breath, cough, wheezing, and pleuritic chest pain, Abdomen/GI: Negative for abdominal pain, nausea, vomiting, diarrhea, and constipation. 08:31 MS/extremity: Positive for pain. 08:31 All other systems are negative. Exam: 08:31 Constitutional: This is a well developed, well nourished patient who is awake, alert, jmm and in no acute distress. Head/Face: atraumatic. Eyes: EOMI, no conjunctival erythema appreciated ENT: Moist Mucus Membranes Neck: Trachea midline, Supple Chest/axilla: Normal chest wall appearance and motion. Cardiovascular: Regular rate and rhythm. No edema appreciated Respiratory: Normal respirations, no respiratory distress appreciated Abdomen/GI: Non distended, soft Back: Normal ROM Skin: General appearance color normal 08:31 Musculoskeletal/extremity: No swelling or induration appreciated to the right foot, full dorsalis pedis pulse, compartments are soft, no calf tenderness, neurovascular intact. 08:31 Skin: Appearance: Color: normal in color. 08:31 Neuro: Orientation: is normal, Mentation: is normal, Memory: is normal. 08:31 Psych: Behavior/mood is pleasant, cooperative. Vital Signs: 08:30 BP 132 / 67; Pulse 75; Resp 17; Pulse Ox 97% on R/A; bp 08:30 BP 137 / 69; Pulse 68; Resp 18; Temp 97.5; Pulse Ox 100% ; Weight 86.18 kg; Height 5 mb7 ft. 11 in. (180.34 cm); 09:20 BP 124 / 69; Pulse 63; Resp 17; Pulse Ox 96% ; bp 08:30 Body Mass Index 26.50 (86.18 kg, 180.34 cm) mb7 MDM: 08:31 Patient medically screened. [facility] 09:03 Data reviewed: vital signs, nurses notes. Counseling: I had a detailed discussion with [facility] the patient and/or guardian regarding: the historical points, exam findings, and any diagnostic results supporting the discharge/admit diagnosis, the need for outpatient follow up, to return to the emergency department if symptoms worsen or persist or if there are any questions or concerns that arise at home. Administered Medications: 08:42 Drug: Dilaudid (HYDROmorphone) 2 mg Route: IM; Site: right deltoid; bp 09:21 Follow up: Response: Pain is decreased bp Disposition Summary: 12/10/21 09:04 Discharge Ordered Location: Home [facility] Condition: Stable [facility] Diagnosis - Chronic pain [facility] Followup: [facility] - With: Private Physician - When: 2 - 3 days - Reason: Recheck today's complaints, Continuance of care, Re-evaluation by your physician Discharge Instructions: - Discharge Summary Sheet [facility] - Chronic Pain, Adult [facility] Forms: - Medication Reconciliation Form [facility] - Thank You Letter [facility] - Antibiotic Education [facility] - Prescription Opioid Use [facility] Addendum: 12/13/2021 09:16 Co-signature as Attending Physician, Stu Banerjee MD I agree with the assessment and c robbins plan of care. Signatures: Stu Banerjee MD MD cha Mickail, Joel, PA PA Quoc Mendez, RN RN bp
[2021-12-10 10:29] VITALS: TEMP 97.5
[2021-12-10 10:31] VITALS: BP 124/69; O2SAT 96
== END 2021-12-10 10:25 | disposition home or self-care (01) ==
LOC: ER 08:28
DX: G89.29 Other chronic pain (principal); I48.91 Unspecified atrial fibrillation; Z88.5 Allergy status to narcotic agent; Z88.8 Allergy status to other drugs, medicaments and biological substances
CPT/HCPCS: 96372; 99283; J1170

== ENCOUNTER 2021-12-11 07:10 | Emergency (ER) | payer OTHER ==
--- OUTSIDE RECORDS SUMMARY | 2021-12-11 07:18 | XMS REPORT | Continuity of Care Document ---
:1950 Author Organization [facility] t Address [address] [place] [address] Dr. Ling. [address] [place] [address] Care Team Providers Name Role Phone Edy [...] Expiration Date S ource MEDICARE PART A [id number] 2007 \\T\\ B 00:00:00 [employer] INDEMNITY [id number] 2016 00:00:00 MEDICARE PART A [id number] 2014 \\T\\ B - MEDICARE 00:00:00 INDEMNITY/TRADITIO [id number] NAL CHOICE - [employer] 00:00:00 Problems Condition [...] ents Source Name Type Date Date Clinician Gem Propensi Active Rash 2020- Univers ty to [...] vers NE INGREDI 3-16 ity of 00:00: [place] 00 [facility] Branch GLIMEPIR DRUG Active Hives Univers EFREN INGREDI 3-16 ity of 00:00: [place] 00 Medical Branch METFORMI DRUG Active ITCHING Univers N INGREDI 3-16 ity of 00:00: [place] 00 Medical Branch Social History Social Habit Start Date Stop Date Quantity Comments Source Exposure to Not sure [place] of SARS-CoV-2 [facility] (event) Branch History of Chews Tobacco University of tobacco use [facility] History SDOH 2020-11-17 2020-11-17 5 University o f Financial 00:00:00 00:00:00 [facility] History [facility] Food 2020-11-17 2020-11-17 1 Univers ity of Worry 00:00:00 00:00:00 [facility] History [facility] Food 2020-11-17 2020-11-17 1 Univers ity of Scarcity 00:00:00 00:00:00 [facility] History [facility] 2020-11-17 2020-11-17 1 University o f Transport Med 00:00:00 00:00:00 [facility] al Branch History [facility] 2020-11-17 2020-11-17 1 University o f Transport Non-Med 00:00:00 00:00:00 [facility] edical Branch Education 2020-11-16 2020-11-16 21 [place] of 00:00:00 00:00:00 [facility] Alcohol intake 2020-11-16 2020-11-16 Ex-drinker [place] of 00:00:00 00:00:00 (finding) [facility] Tobacco use and 2020-08-21 2020-08-21 Former user Universi ty of exposure 00:00:00 00:00:00 [facility] Tobacco Comment 2020-08-21 2020-08-21 quit 10 years Univer sity of 00:00:00 00:00:00 ago, started in [place] Med ical 2nd year of Branch college (~40 years) Alcohol Comment 2020-08-21 2020-08-21 Used to have 2-3 Uni versity of 00:00:00 00:00:00 six-packs of [place] Medica l beer daily x 20 Branch years, quit 2005 History [facility] 2020-08-21 2020-08-21 99 University o f Alcohol Frequency 00:00:00 00:00:00 [place] M edical Branch History SDMI 2020-08-21 2020-08-21 99 [place] o f Alcohol Std 00:00:00 00:00:00 [place] Medical Drinks Branch History SDMI 2020-08-21 2020-08-21 99 University o f Alcohol Binge 00:00:00 00:00:00 [place] Medic al Branch Sex [birth year] Universit y of 00:00:00 00:00:00 [place] [facility] [place] Smoking Status Start Date Stop Date Source Never smoker [facility] Branch Medications Ordered Filled Start Stop Current [...] by ity of tablet 16:47: mouth at [place] 18 bedtime. Medical Branch HYDROmorpho Yes 4mg [...] 0845, Until Discontinu ed, Routine amLODIPine Yes [id number] 10mg Take 1 Univers 10 mg 3-07 tablet by ity of tablet 00:00: mouth [place] 00 daily. Medical Branch clotrimazol Yes [id number] Apply to Univers e 1 % 3-07 face/ears, ity of topical 00:00: armpits, [place] cream 00 pannus and Medical back/any Branch other rash twice a day fluocinonid 0 Yes [id number] Apply to Univers e 0.05 % 3-07 scalp ity of solution 00:00: twice a [place] 00 day Medical Branch triamcinolo 0 Yes [id number] Apply to Univers ne 3-07 back, ity of acetonide 00:00: armpits [place] 0.1 % cream 00 and other Med ical affected Branch areas twice daily, please mix with clotrimazo le hydrOXYzine 0 Yes [id number] 10mg Take 1 Univers 10 mg 3-07 tablet by ity of tablet 00:00: mouth 2 00 (two) Medical times Branch daily. amLODIPine Yes [id number] 10mg Take 1 Univers 10 mg 3-07 tablet by ity of tablet 00:00: mouth 00 daily. Medical Branch clotrimazol 0 Yes [id number] Apply to Univers e 1 % 3-07 face/ears, ity of topical 00:00: armpits, [place] cream 00 pannus and Medical back/any Branch other rash twice a day fluocinonid 0 Yes [id number] Apply to Univers e 0.05 % 3-07 scalp ity of solution 00:00: twice a day Medical Branch triamcinolo Yes [id number] Apply to Univers ne 3-07 back, ity of acetonide 00:00: armpits [place] 0.1 % cream 00 and other Med ical affected Branch areas twice daily, please mix with clotrimazo le hydrOXYzine Yes [id number] 10mg Take 1 Univers 10 mg 3-07 tablet by ity of tablet 00:00: mouth 2 (two) Medical times Branch daily. amLODIPine Yes [id number] 10mg Take 1 Univers 10 mg 3-07 tablet by ity of tablet 00:00: mouth 00 daily. Medical Branch clotrimazol 0 Yes [id number] Apply to Univers e 1 % 3-07 face/ears, ity of topical 00:00: armpits, [place] cream 00 pannus and Medical back/any Branch other rash twice a day fluocinonid 2020-0 Yes [id number] Apply to Univers e 0.05 % 3-07 scalp ity of solution 00:00: twice a [place] 00 day Medical Branch triamcinolo 2020-0 Yes [id number] Apply to Univers ne 3-07 back, ity of acetonide 00:00: armpits [place] 0.1 % cream 00 and other Med ical affected Branch areas twice daily, please mix with clotrimazo le hydrOXYzine Yes [id number] 10mg Take 1 Univers 10 mg 3-07 tablet by ity of tablet 00:00: mouth 2 [place] 00 (two) Medical times Branch daily. amLODIPine Yes [id number] 10mg Take 1 Univers 10 mg 3-07 tablet by ity of tablet 00:00: mouth [place] 00 daily. Medical Branch clotrimazol Yes [id number] Apply to Univers e 1 % 3-07 face/ears, ity of topical 00:00: armpits, [place] cream 00 pannus and Medical back/any Branch other rash twice a day fluocinonid Yes [id number] Apply to Univers e 0.05 % 12-17 scalp ity of solution 00:00: twice a [place] 00 day Medical Branch triamcinolo Yes [id number] Apply to Univers ne 3-07 back, ity of acetonide 00:00: armpits [place] 0.1 % cream 00 and other Med ical affected Branch areas twice daily, please mix with clotrimazo le hydrOXYzine Yes [id number] 10mg Take 1 Univers 10 mg 3-07 tablet by ity of tablet 00:00: mouth 2 [place] 00 (two) Medical times Branch daily. cephALEXin 2020-2020- No [id number] 500mg Take 1 Univers 500 mg -04 14- capsule by ity of capsule 00:00: 05:59 mouth [place] 00 :00 every 6 Medical (six) Branch hours for 3 days. cephALEXin 2020-0 2020- No [id number] 500mg Take 1 Univers 500 mg 3-04 14-11 capsule by ity of capsule 00:00: 05:59 mouth [place] 00 :00 every 6 Medical (six) Branch hours for 3 days. hydrOXYzine 2020-2020- No [id number] 10mg Take 1 Univers 10 mg 3-04 14-07 tablet by ity of tablet 00:00: 00:00 mouth 2 [place] 00 :00 (two) Medical times Branch daily. morpHINE Yes 4mg 4 mg, Slow Uni vers injection 4 - IV Push, ity of mg 22:40: Q6HPRN, [place] 02 Starting Medical 12/16/20 Branch at 1640, [...] IV [place] 500 mL 00 :00 Piggyback, [facility] ONCE, 1 Branch dose, Fri12/15/20 at 1000, STAT HYDROmorpho Yes 4mg 4 mg, Unive rs ne 12-15 Oral, BID, ity of (DILAUDID) 15:30: First dose [place] tablet 4 mg 00 (after Medica l last Branch modificati on) on Fri12/15/20 at 0930, Until Discontinu ed, Routine amLODIPine 2020- No [id number] 10mg Take 1 Univers 10 mg 12-15 tablet by ity of tablet 00:00: 00:00 mouth [place] 00 :00 daily. Medical Branch HYDROmorpho No 1mg 1 mg, Univ ers ne 12-14 Oral, ity of (DILAUDID) 17:35: 15:18 Q6HPRN, [place] tablet 1 mg 30 :06 Starting Medi [facility] 12/14/20 Branch at 1135, Until Fri12/15/20 at 0918, Routine, Pain (scale 7-10) hydrOXYzine Yes 10mg 10 mg, [facility] ers (ATARAX) 12-14 Oral, BID, ity o f tablet 10 17:30: First dose [place] mg 00 on [facility] 12/14/20 at Branch 1130, Until Discontinu ed, Routine lisinopriL Yes 5mg 5 mg, Univer s (PRINIVIL,Z 12-14 Oral, ity of ESTRIL) 17:30: DAILY, [place] tablet 5 mg 00 First dose Me dical on [facility] 12/14/20 at 1130, Until Discontinu ed, Routine triamcinolo 2020- No [id number] Apply to [facility] 12-14 back, ity of acetonide 00:00: 00:00 armpits [place] 0.1 % cream 00 :00 and other Med ical affected Branch areas twice daily, please mix with clotrimazo le clotrimazol 2020- No [id number] Apply to Univers e 1 % 12-14 face/ears, ity of topical 00:00: 00:00 armpits, [place] cream 00 :00 pannus and Medical back/any Branch other rash twice a day fluocinonid 2020- No [id number] Apply to Univers e 0.05 % 12-14 scalp ity of solution 00:00: 00:00 twice a [place] 00 :00 day Medical Branch hydrOXYzine 2020- No [id number] 10mg Take 1 Univers 10 mg 12-14 [...] IV Push, ity of (PF)) 10:07: Q6HPRN, [place] injection 4 28 Starting Medi jose c [...] 1 [place] mg 00 :00 dose, [facility] 12/12/20 at Branch 2145, Routine insulin Yes 15U 15 Units, Unive rs glargine 12-12 Subcutaneo ity o f (LANTUS 15:00: us, DAILY, [place] U-100) 00 First dose Medical injection on [facility] 15 Units 12/12/20 at 0900, Until Discontinu ed hydrOXYzine 2020- No 10mg 10 mg, Uni vers (ATARAX) 12-12 03-02 Oral, ity of tablet 10 08:15: 07:33 ONCE, 1 [place] mg 00 :00 dose, [facility] 12/12/20 at Branch 0215, Routine mirtazapine Yes 7.5mg 7.5 mg, Un toi (REMERON) 3-02 Oral, QHS, ity of tablet 7.5 03:00: First dose [place] mg 00 on [facility] 12/11/20 at Branch 2100, Until Discontinu ed, Routine venlafaxine Yes 300mg 300 mg, Un toi XR (EFFEXOR 3-02 Oral, QHS, it y of XR) 24 hr 03:00: First dose [place] capsule 300 00 on [facility] Medica l mg 12/11/20 at Branch 2100, Until Discontinu ed, Routine fluocinonid Yes Topical, Un toi e (LIDEX) 3 BID, First ity of 0.05 % 02:00: dose on [place] solution 00 Fri12/11/20 Medic al at 2000, Branch Until Discontinu ed, Routine acetaminoph 2020- No 1{tbl} 1 tablet, Univers en-codeine 12-11 03-05 Oral, ity of (TYLENOL 23:23: 13:49 Q6HPRN, [place] #3) 300-30 43 :08 Starting Medic al mg tablet 1 Fri12/11/20 Br anch tablet at 1723, Until Fri12/15/20 at 0749, Routine, Pain (scale 4-6) enoxaparin Yes 40mg 40 mg, Unive rs (LOVENOX) 12-11 Subcutaneo ity of injection 23:00: us, DAILY, [place] 40 mg 00 First dose Medical on Fri [place] 12/11/20 at 1700, Until Discontinu ed, Routine [...] ed, Routine insulin Yes 5U 5 Units, [facility] s lispro 12-11 Subcutaneo ity of (human) 18:00: us, TID [place] (HumaLOG 00 MEALS, Medical U-100) First dose Branch injection 5 on [facility] Units 12/11/20 at 1200, Until Discontinu ed Polyethylen Yes 17g 17 g, [facility] rs e Glycol 12-11 Oral, ity of 3350 17:47: [id number], [place] (MIRALAX) 05 Starting Medica l powder 17 g 12/11/20 Br anch at 1147, Until Discontinu ed, Routine, Constipati on acetaminoph Yes 650mg 650 mg, Un toi en 12-11 Oral, ity of (TYLENOL) 16:51: Q6HPRN, [place] tablet 650 28 Starting Medic al mg [...]
Duration of therapy: 72 hours sennosides- Yes [id number] 1{tbl} Take 1 [facility] [place] [facility] docusate 2-09 tablet by ity of sodium 00:00: mouth 2 [place] 8.6-50 mg 00 (two) Medical per tablet times Branch daily. hydrocortis Yes [id number] Apply to [facility] [place] [facility] one 2.5 % 11-21 affected ity of cream 00:00: area(s) 2 [place] 00 (two) Medical times Branch daily. blood sugar Yes [id number] Use to [facility] [place] [facility] diagnostic 2 check ity of (FREESTYLE 00:00: blood [place] LITE 00 glucose Medical STRIPS) 4-5 times Branch strip daily. Polyethylen Yes [id number] 17g Take 1 Univers e Glycol 2-09 Packet by ity of 3350 17 00:00: mouth [place] gram powder 00 every 24 Medi jose c (twenty-fo Branch ur) hours as needed for Constipati on. sennosides- Yes [id number] 1{tbl} Take 1 Univers docusate 2-09 tablet by ity of sodium 00:00: mouth 2 [place] 8.6-50 mg 00 (two) Medical per tablet times Branch daily. hydrocortis 2020-0 Yes [id number] Apply to Univers one 2.5 % 2-09 affected ity of cream 00:00: area(s) 2 [place] 00 (two) Medical times Branch daily. blood sugar 2020-0 Yes [id number] Use to Univers diagnostic 11-21 check ity of (FREESTYLE 00:00: blood [place] LITE 00 glucose Medical STRIPS) 4-5 times Branch strip daily. Polyethylen 2020-0 Yes [id number] 17g Take 1 Univers e Glycol 2-09 Packet by ity of 3350 17 00:00: mouth [place] gram powder 00 every 24 Medi jose c (twenty-fo Branch ur) hours as needed for Constipati on. sennosides- 2020-0 Yes [id number] 1{tbl} Take 1 Univers docusate 2-09 tablet by ity of sodium 00:00: mouth 2 [place] 8.6-50 mg 00 (two) Medical per tablet times Branch daily. hydrocortis 2020-0 Yes [id number] Apply to Univers one 2.5 % 2-09 affected ity of cream 00:00: area(s) 2 [place] 00 (two) Medical times Branch daily. blood sugar 2020-0 Yes [id number] Use to [facility] [place] [facility] diagnostic 11-21 check ity of (FREESTYLE 00:00: blood [place] LITE 00 glucose Medical STRIPS) 4-5 times Branch strip daily. Polyethylen 2020-0 Yes [id number] 17g Take 1 Univers e Glycol 2-09 Packet by ity of 3350 17 00:00: mouth [place] gram powder 00 every 24 Medi jose c (twenty-fo Branch ur) hours as needed for Constipati on. sennosides- 2020-0 Yes [id number] 1{tbl} Take 1 Univers docusate 2-09 tablet by ity of sodium 00:00: mouth 2 [place] 8.6-50 mg 00 (two) Medical per tablet times Branch daily. hydrocortis 2020-0 Yes [id number] Apply to Univers one 2.5 % 2-09 affected ity of cream 00:00: area(s) 2 [place] 00 (two) Medical times Branch daily. blood sugar Yes [id number] Use to [facility] [place] [facility] diagnostic 11-21 check ity of (FREESTYLE 00:00: blood [place] LITE 00 glucose Medical STRIPS) 4-5 times Branch strip daily. Polyethylen Yes [id number] 17g Take 1 Univers e Glycol 11-21 Packet by ity of 3350 17 00:00: mouth [place] gram powder 00 every 24 Medi jose c (twenty-fo Branch ur) hours as needed for Constipati on. Insulin 2020- No [id number] 15U inject 15 Univers Glargine 11-21 Units ity of (LANTUS 00:00: 05:59 under the [place] SOLOSTAR 00 :00 skin every Medic al U-100 morning Branch INSULIN) for 30 100 unit/mL days. (3 mL) injection venlafaxine 2020- No [id number] 150mg Take 1 Univers XR 150 mg 11-21 capsule by ity of 24 hr 00:00: 05:59 mouth 3 [place] capsule 00 :00 (three) Medical times Branch daily for 30 days. Insulin 2020- No [id number] 15U inject 15 Univers Glargine 11-21 Units ity of (LANTUS 00:00: 05:59 under the [employer] SOLOSTAR 00 :00 skin every Medic al U-100 morning Branch INSULIN) for 30 100 unit/mL days. (3 mL) injection venlafaxine 2020- No [id number] 150mg Take 1 Univers XR 150 mg 11-21 capsule by ity of 24 hr 00:00: 05:59 mouth 3 [place] capsule 00 :00 (three) Medical times Branch daily for 30 days. triamcinolo 2020- No [id number] Apply to [facility] [place] [facility] ne 11-21 area(s) 2 ity of acetonide 00:00: 00:00 (two) [place] 0.1 % cream 00 :00 times Medical daily. Branch cephALEXin 2020- No [id number] 1000mg Take 2 Univers 500 mg 11-21 capsules ity of capsule 00:00: 00:00 by mouth 3 [place] 00 :00 (three) Medical times Branch daily. doxycycline 2020- No [id number] 100mg Take 1 Univers hyclate 100 11-21 capsule by i ty of mg capsule 00:00: 00:00 mouth [place] 00 :00 every 12 Medical (twelve) Branch hours. lactobacill 2020- No [id number] 1{tbl} Take 1 Univers us 11-21 tablet by ity of acidophilus 00:00: 00:00 mouth 2 [place] 25 million 00 :00 (two) Medical cell -100 times Branch mg captab daily. bisacodyL 2020- No [id number] 10mg Insert 1 Univers 10 mg 11-21 Suppositor ity of suppository 00:00: 00:00 y into [place] 00 :00 rectum at Medical bedtime as Branch needed for Constipati on. ALPRAZolam 2020- No [id number] .25mg Take 1 Univers (XANAX) 11-21 tablet by ity of 0.25 mg 00:00: 00:00 mouth 2 [place] tablet 00 :00 (two) Medical times Branch daily. hydrOXYzine 2020- No [id number] 20mg Take 2 Univers 10 mg 11-21 [...] Units ity of (LANTUS 01:13: under the [place] SOLOSTAR) 36 skin. Medical 100 unit/mL Branch [...] Units ity of (LANTUS 01:13: under the [place] SOLOSTMI) 36 skin. Medical 100 unit/mL Branch (3 mL) InPn INSULIN 2019-10 Yes 5U inject 5 Univer s ASPART 1-12 Units ity of (NOVOLOG 01:13: under the [facility] FLEXPEN [place]) 36 skin. Medical Branch ALPRAZolam 2019-10 Yes .25mg Take 0.25 U nivers (XANAX) 1-12 mg by ity of 0.25 mg 01:13: mouth 2 [place] tablet 36 (two) Medical times Branch daily. HYDROmorpho 2019-10 Yes 4mg Take 4 mg U nivers ne 4 mg 1-12 by mouth 2 ity of tablet 01:13: (two) [place] 36 times Medical daily. Branch HYDROMORPHO 2019-10 [...] Units ity of (LANTUS 01:13: under the [place] SOLOSTMI) 36 skin. Medical 100 unit/mL Branch (3 mL) In INSULIN 2019- Yes 5U inject 5 Univer s ASPART 1-12 Units ity of (NOVOLOG 01:13: under the [facility] FLEXPEN [place]) 36 skin. [...] Units ity of (LANTUS 01:13: under the [facility]) 36 skin. Medical 100 unit/mL Branch (3 mL) In INSULIN 2019- Yes 5U inject 5 Univer s ASPART 1-12 Units ity of (NOVOLOG 01:13: under the [facility] FLEXPEN [place]) 36 skin. Medical Branch ALPRAZolam 2019- Yes [...] Units ity of (LANTUS 01:13: under the [place] SOLOSTAR) 36 skin. Medical 100 unit/mL Branch (3 mL) InPn INSULIN 2019-10 Yes 5U inject 5 Univer s ASPART 1-12 Units ity of (NOVOLOG 01:13: under the [facility] FLEXPEN [place]) 36 skin. Medical Branch [...] Units ity of (LANTUS 01:13: under the [place] SOLOSTAR) 36 skin. Medical 100 unit/mL Branch [...] 34 :00 Medical Branch hydrocortis 2019- Yes [id number] Apply to Univers one 2.5 % 1-11 affected ity of cream 00:00: area(s) 2 [place] (two) Medical times Branch daily. hydrOXYzine 2019-10 Yes [id number] 20mg Take 2 Univers 10 mg 1-11 tablets by ity of tablet 00:00: mouth [place] 00 every 8 Medical (eight) Branch hours as needed for Itching or Anxiety. Polyethylen 2019-10 Yes [id number] 17g Take 1 Univers e Glycol 1-11 Packet by ity of 3350 17 00:00: mouth [place] gram powder 00 every 24 Medi jose c (twenty-fo Branch ur) hours as needed for Constipati on. hydrocortis 2019-10 Yes [id number] Apply to Univers one 2.5 % 1-11 affected ity of cream 00:00: area(s) 2 [place] (two) Medical times Branch daily. hydrOXYzine 2019- Yes [id number] 20mg Take 2 Univers 10 mg 1-11 tablets by ity of tablet 00:00: mouth [place] 00 every 8 Medical (eight) Branch hours as needed for Itching or Anxiety. Polyethylen 2019- Yes [id number] 17g Take 1 Univers e Glycol 1-11 Packet by ity of 3350 17 00:00: mouth [place] gram powder 00 every 24 Medi jose c (twenty-fo Branch ur) hours as needed for Constipati on. hydrocortis 2019- Yes [id number] Apply to Univers one 2.5 % 1-11 affected ity of cream 00:00: area(s) 2 [place] 00 (two) Medical times Branch daily. hydrOXYzine 2019- Yes [id number] 20mg Take 2 Univers 10 mg 1-11 tablets by ity of tablet 00:00: mouth [place] 00 every 8 Medical (eight) Branch hours as needed for Itching or Anxiety. Polyethylen 2020- Yes [id number] 17g Take 1 Univers e Glycol 1-11 Packet by ity of 3350 17 00:00: mouth [place] gram powder 00 every 24 Medi jose c (twenty-fo Branch ur) hours as needed for Constipati on. hydrocortis 2019- Yes [id number] Apply to Univers one 2.5 % 1-11 affected ity of cream 00:00: area(s) 2 [place] 00 (two) Medical times Branch daily. hydrOXYzine 2019- Yes [id number] 20mg Take 2 Univers 10 mg 1-11 tablets by ity of tablet 00:00: mouth [place] 00 every 8 Medical (eight) Branch hours as needed for Itching or Anxiety. Polyethylen 2019- Yes [id number] 17g Take 1 Univers e Glycol 1-11 Packet by ity of 3350 17 00:00: mouth [place] gram powder 00 every 24 Medi jose c (twenty-fo Branch ur) hours as needed for Constipati on. hydrocortis 2019- Yes [id number] Apply to Univers one 2.5 % 1-11 affected ity of cream 00:00: area(s) 2 [place] 00 (two) Medical times Branch daily. hydrOXYzine 2019- Yes [id number] 20mg Take 2 Univers 10 mg 1-11 tablets by ity of tablet 00:00: mouth [place] 00 every 8 Medical (eight) Branch hours as needed for Itching or Anxiety. Polyethylen 2019- Yes [id number] 17g Take 1 Univers e Glycol 1-11 Packet by ity of 3350 17 00:00: mouth [place] gram powder 00 every 24 Medi jose c (twenty-fo Branch ur) hours as needed for Constipati on. hydrocortis 2019- Yes [id number] Apply to Univers one 2.5 % 1-11 affected ity of cream 00:00: area(s) 2 [place] 00 (two) Medical times Branch daily. hydrOXYzine 2019- Yes [id number] 20mg Take 2 Univers 10 mg 1-11 tablets by ity of tablet 00:00: mouth [place] 00 every 8 Medical (eight) Branch hours as needed for Itching or Anxiety. Polyethylen 2020- Yes [id number] 17g Take 1 Univers e Glycol 1-11 Packet by ity of 3350 17 00:00: mouth [place] gram powder 00 every 24 Medi jose c (twenty-fo Branch ur) hours as needed for Constipati on. hydrocortis 2019-10 Yes [id number] Apply to [facility] [place] [facility] one 2.5 % 1-11 affected ity of cream 00:00: area(s) 2 [place] 00 (two) Medical times Branch daily. hydrOXYzine 2019-10 Yes [id number] 20mg Take 2 Univers 10 mg 1-11 tablets by ity of tablet 00:00: mouth [place] 00 every 8 Medical (eight) Branch hours as needed for Itching or Anxiety. Polyethylen 2019-10 Yes [id number] 17g Take 1 Univers e Glycol 1-11 Packet by ity of 3350 17 00:00: mouth [place] gram powder 00 every 24 Medi jose c (twenty-fo Branch ur) hours as needed for Constipati on. triamcinolo 2019-10 2020- No [id number] Apply to [facility] 10-23 area(s) 2 ity of acetonide 00:00: 05:59 (two) [place] 0.1 % cream 00 :00 times Medical daily for Branch 14 days. triamcinolo 2019-10 2020- No [id number] Apply to [facility] 10-23 area(s) 2 ity of acetonide 00:00: 05:59 (two) [place] 0.1 % cream 00 :00 times Medical daily for Branch 14 days. triamcinolo 2019-10 2020- No [id number] Apply to [facility] 10-23 area(s) 2 ity of acetonide 00:00: [...] Areas), Medical BID, First Branch dose on [facility] 08/21/20 at 2000, Until Discontinu ed, Routine triamcinolo 2019- Yes Topical, Un toi ne 1-10 BID, First ity of acetonide 02:00: dose on [place] (TRIDERM) 00 [facility] Medical 0.1 % cream 08/21/20 at Br anch 2000, Until Discontinu ed, Routine hydrOXYzine 2019-10 Yes 20mg 20 mg, Univ ers (ATARAX) 09 Oral, ity of tablet 20 17:39: Q8HPRN, [place] mg 12 Starting Medical [facility] Branch 08/21/20 at 1139, Until Discontinu ed, Routine, Itching, Anxiety sennosides- 2019-10 Yes 1{tbl} 1 tablet, Univers docusate 10-21 Oral, ity of sodium 15:00: DAILY, [place] (SENOKOT-S) 00 First dose Me dical 8.6-50 mg on [facility] Branch per tablet 08/21/20 at 1 tablet 0900, Until Discontinu ed, Routine hydrocortis 2019-10 2020- No Topical Un toi one 1 % 10-21 (Apply To ity of cream 15:00: 22:54 Affected [place] 00 :48 Areas), Medical DAILY, Branch First dose on Fri08/21/20 at 0900, Until Discontinu ed, Routine venlafaxine 2019-10 Yes 150mg 150 mg, Un toi XR (EFFEXOR 09 Oral, TID, it y of XR) 24 hr 14:00: First dose [place] capsule 150 00 on [facility] Medica l mg 08/21/20 at Branch 0800, Until Discontinu ed, Routine heparin 2019- Yes 5000U 5,000 Univers (porcine) -09 Units, ity of injection 14:00: Subcutaneo [place] 5,000 Units 00 us, Q12H, Med ical First dose Branch on [facility] 08/21/20 at 0800, Until Discontinu ed, Routine diphenhydrA 2019-10 2020- No 25mg 25 mg, Uni vers MINE 10-21 Oral, ity of (BENADRYL) 12:56: 17:39 Q8HPRN, [place] tablet 25 59 :43 Starting Medica l mg [facility] 08/21/20 at 0656, Until [facility] 08/21/20 at 1139, Routine, Itching, Mild Rash, Congestion /Allergies , alternate with hydroxyzin e hydrOXYzine 2019-10- No 10mg 10 mg, Uni vers (ATARAX) 10-21 Oral, ity of tablet 10 10:20: 12:57 Q6HPRN, [place] mg 22 :12 Starting [facility] 08/21/20 at 0420, Until [facility] 08/21/20 at 0657, Routine, Itching, Anxiety Sliding 2019-10 Yes Subcutaneo Univ ers Scale 09 us, Q4H, ity of Insulin - 10:00: [place] dose [place] Aspart 00 (after Medical (NOVOLOG) + last Branch Fsbg modificati Testing on) on [facility] 08/21/20 at 0400, Until Discontinu ed, Routine lidocaine 5 2019-10- No Topical, U nivers % ointment 10-21 ONCE, 1 ity o f 09:30: 09:14 dose, [facility] 00 :00 08/21/20 at [facility] 0330, Branch Routine Polyethylen 2019-10 Yes 17g 17 g, [facility] rs e Glycol 10-21 Oral, ity of 3350 08:29: H30STBK, [place] (MIRALAX) 09 Starting Medica l powder 17 g [facility] 08/21/20 at 0229, Until Discontinu ed, Routine, Constipati on lanolin 2019-10 Yes Topical, Univer s alcohol-mo- 10-21 PRN, ity of w.pet-ceres 08:26: [place] (EUCERIN) 30 [facility] cream 08/21/20 at Branch 0226, Until Discontinu ed, Routine, Dermatitis /Rash ALPRAZolam 2019-10 Yes .25mg 0.25 mg, Un to[place] (XANAX) 10-21 Oral, ity of tablet 0.25 08:25: BIDPRN, [place] mg 41 Starting [facility] 08/21/20 at 0225, Until Discontinu [...] (scale 1-3) sotalol 2019-10- No [facility] (BETAPACE) 10-21 mouth ity of 240 mg 07:43: 00:00 every 12 [place] tablet 30 :00 (twelve) Medical hours. Branch blood sugar Yes Use to Se[place] ers diagnostic 4-25 check ity of (FREESTYLE 00:00: blood [place] LITE 00 glucose Medical STRIPS) 4-5 times Branch strip daily. blood sugar Yes Use to [place] ers diagnostic -25 check ity of (FREESTYLE 00:00: blood [place] LITE 00 glucose Medical STRIPS) 4-5 times Branch strip daily. blood sugar Yes Use to [place] ers diagnostic -25 check ity of (FREESTYLE 00:00: blood [place] LITE 00 glucose Medical STRIPS) 4-5 times Branch strip daily. blood sugar Yes Use to [place] ers diagnostic -25 check ity of (FREESTYLE 00:00: blood [place] LITE 00 glucose Medical STRIPS) 4-5 times Branch strip daily. blood sugar Yes Use to [place] ers diagnostic -25 check ity of (FREESTYLE 00:00: blood [place] LITE 00 glucose Medical STRIPS) 4-5 times Branch strip daily. blood sugar Yes Use to [facility] ers diagnostic 4-25 check ity [...] 13:00:00 148 mm[Hg] Univer sity of pressure [place] [facility] Diastolic blood 2021-08-22 13:00:00 84 mm[Hg] Unive rsity of pressure [facility] Heart rate 2021-08-22 13:00:00 103 /min [facility] Respiratory rate 2021-08-22 13:00:00 18 /min Univ ersity of [facility] Oxygen saturation in 2021-08-22 13:00:00 95 /min University of Arterial blood by [facility] Pulse oximetry Branch Body temperature 2021-08-22 12:22:00 36.72 [place] [facility] ersity of [facility] Branch Systolic blood 2020-12-17 18:35:00 139 mm[Hg] Univer sity of pressure [place] [facility] Diastolic blood 2020-12-17 18:35:00 87 mm[Hg] Unive rsity of pressure [place] [facility] [place] Heart rate 2020-12-17 18:35:00 110 /min [facility] Body temperature 2020-12-17 18:35:00 37.72 [place] [facility] ersity of [place] [facility] Respiratory rate 2020-12-17 18:35:00 18 /min Univ ersity of [place] [facility] Oxygen saturation in 2020-12-17 18:35:00 93 /min University of Arterial blood by [facility] Pulse oximetry Branch Body height 2020-12-12 08:21:00 180.3 cm [facility] Body weight 2020-12-12 08:21:00 103.42 kg [facility] BMI 2020-12-12 08:21:00 31.80 kg/m2 [facility] Systolic blood 2020-12-17 18:35:00 139 mm[Hg] Univer sity of pressure [place] [facility] Diastolic blood 2020-12-17 18:35:00 87 mm[Hg] Unive rsity of pressure [place] [facility] Heart rate 2020-12-17 18:35:00 110 /min Universi ty of [place] [facility] [place] Body temperature 2020-12-17 18:35:00 37.72 [place] Univ ersity of [place] [facility] Respiratory rate 2020-12-17 18:35:00 18 /min Univ ersity of [place] [facility] Oxygen saturation in 2020-12-17 18:35:00 93 /min University of Arterial blood by [place] [employer] jose c Pulse oximetry Branch Body height 2020-12-12 08:21:00 180.3 cm Universi ty of [place] [facility] [place] Body weight 2020-12-12 08:21:00 103.42 kg Universi ty of [facility] BMI 2020-12-12 08:21:00 31.80 kg/m2 Universi ty of [place] [facility] Systolic blood 2020-08-23 19:27:00 140 mm[Hg] Univer sity of pressure [place] [facility] Diastolic blood 2020-08-23 19:27:00 79 mm[Hg] Unive rsity of pressure [place] [facility] Heart rate 2020-08-23 19:27:00 99 /min Universi ty of [facility] Body temperature 2020-08-23 19:27:00 36 [place] Univ ersity of [place] [facility] Respiratory rate 2020-08-23 19:27:00 18 /min Univ ersity of [place] [facility] Oxygen saturation in 2020-08-23 19:27:00 93 /min University of Arterial blood by [place] [employer] jose c Pulse oximetry Branch Body weight 2020-08-21 07:20:00 104.962 kg Universi ty of [place] [facility] BMI 2020-08-21 07:20:00 32.27 kg/m2 Universi ty of [place] [facility] Systolic blood 2020-08-23 19:27:00 140 mm[Hg] Univer sity of pressure [place] [facility] Diastolic blood 2020-08-23 19:27:00 79 mm[Hg] Unive rsity of pressure [place] [facility] Heart rate 2020-08-23 19:27:00 99 /min Universi ty of [place] [facility] Body temperature 2020-08-23 19:27:00 36 [facility] Respiratory rate 2020-08-23 19:27:00 18 /min [facility] Oxygen saturation in 2020-08-23 19:27:00 93 /min [facility] Arterial blood by [facility] Pulse oximetry [place] Body weight 2020-08-21 07:20:00 104.962 kg [facility] BMI 2020-08-21 07:20:00 32.27 kg/m2 [facility] Procedures Procedure Date / Time Performing Clinician Source Performed POCT GLUCOSE (AUTOMATED) 2020-12-17 15:42:00 [facility]EL 2020-12-17 10:45:00 Paul Bean [facility] (NA, K, CL, CO2, GLUCOSE, [place] Medica l Branch BUN, CREATININE, CA) CBC WITH DIFF 2020-12-17 10:45:00 Paul Bean [facility] POCT GLUCOSE (AUTOMATED) 2020-12-17 02:36:00 Harrison, Premal G Uni [facility] XR TIBIA FIBULA 2 VW LEFT 2020-12-16 23:38:00 [facility] POCT GLUCOSE (AUTOMATED) 2020-12-16 23:20:00 Harrison, [facility] PO[facility] GLUCOSE (AUTOMATED) 2020-12-16 20:10:00 Harrison, [facility] POCT GLUCOSE (AUTOMATED) 2020-12-16 14:43:00 Harrison, [facility] BASIC METABOLIC PANEL 2020-12-16 13:51:00 Paul Bean [facility] (NA, K, CL, CO2, GLUCOSE, [place] [facility] l Branch BUN, CREATININE, CA) CBC WITH DIFF 2020-12-16 13:51:00 Paul Bean [facility] POCT GLUCOSE (AUTOMATED) 2020-12-16 04:00:00 Harrison, [facility] POCT GLUCOSE (AUTOMATED) 2020-12-16 00:14:00 Harrison, Premal G Uni versity of [facility] CT CHEST PULMONARY 2020-12-15 22:29:38 Paul Bean [facility] ANGIOGRAM [facility] POCT GLUCOSE (AUTOMATED) 2020-12-15 19:26:00 Harrison, Premal G Uni versity of [facility] POCT GLUCOSE (AUTOMATED) 2020-12-15 15:13:00 Harrison, Premal G Uni versity of [facility] HB ECG ROUTINE & RHYTHM 2020-12-15 14:25:27 Cailin Romo [facility] Branch MAGNESIUM 2020-12-15 12:01:00 Paul Bean Sivakumar [facility] BASIC METABOLIC PANEL 2020-12-15 12:01:00 Paul Bean [facility] (NA, K, CL, CO2, GLUCOSE, [place] [facility] BUN, CREATININE, CA) CBC WITH DIFF 2020-12-15 12:01:00 Paul Bean Sivakumar [facility] POCT GLUCOSE (AUTOMATED) 2020-12-15 03:57:00 Harrison, Premal G Uni versity of [facility] POCT GLUCOSE (AUTOMATED) 2020-12-14 23:31:00 Harrison, Premal G Uni versity of [facility] POCT GLUCOSE (AUTOMATED) 2020-12-14 19:08:00 Harrison, Premal G Uni versity of [facility] POCT GLUCOSE (AUTOMATED) 2020-12-14 15:11:00 Harrison, Premal G Uni versity of [facility] POCT GLUCOSE (AUTOMATED) 2020-12-14 02:36:00 Harrison, Premal G Uni versity of [facility] POCT GLUCOSE (AUTOMATED) 2020-12-13 23:32:00 Harrison, Premal G Uni versity of [facility] POCT GLUCOSE (AUTOMATED) 2020-12-13 18:08:00 Harrison, Premal G Uni versity of [facility] BASIC METABOLIC PANEL 2020-12-13 15:39:00 Paul Bean [facility] (NA, K, CL, CO2, GLUCOSE, [place] [facility] BUN, CREATININE, CA) CBC WITH DIFF 2020-12-13 15:39:00 Paul Bean Sivakumar [facility] POCT GLUCOSE (AUTOMATED) 2020-12-13 14:06:00 Harrison, [facility] POCT GLUCOSE (AUTOMATED) 2020-12-13 03:07:00 Harrison, [facility]al [facility] POCT GLUCOSE (AUTOMATED) 2020-12-12 23:52:00 Harrison, [facility] POCT GLUCOSE (AUTOMATED) 2020-12-12 20:28:00 Harrison, [facility]al [facility] POCT GLUCOSE (AUTOMATED) 2020-12-12 19:14:00 Harrison, [facility] POCT GLUCOSE (AUTOMATED) 2020-12-12 14:33:00 Harrison, [facility]al [facility] MAGNESIUM 2020-12-12 08:58:00 Paul Bean Sivakumar [facility] BASIC METABOLIC PANEL 2020-12-12 08:58:00 Paul Bean [facility] (NA, K, CL, CO2, GLUCOSE, [place] [facility] BUN, CREATININE, CA) CBC WITH DIFF 2020-12-12 08:58:00 Paul Bean Sivakumar [facility] US ABDOMEN LIMITED 2020-12-12 06:32:26 [facility] POCT GLUCOSE (AUTOMATED) 2020-12-12 03:40:00 Harrison, Premal G Uni [facility] POCT GLUCOSE (AUTOMATED) 2020-12-12 00:06:00 Harrison, Premal G Uni [facility] XR HIPS 3 VW LEFT 2020-12-11 20:20:00 Darnell Beanaham Sivakumar [facility] HB ECG ROUTINE & RHYTHM 2020-12-11 20:04:06 Cailin Romo [facility] VITAMIN B6, PLASMA 2020-12-11 19:17:00 [facility] POCT GLUCOSE (AUTOMATED) 2020-12-11 19:06:00 Rene Harrison [facility] CREATINE KINASE 2020-12-11 18:22:00 Clarisse Hannon [facility] VITAMIN B12, LEVEL 2020-12-11 18:22:00 Paul Bean [facility] FOLATE 2020-12-11 18:22:00 Vikas [facility] THYROID STIMULATING 2020-12-11 18:22:00 Cailin Romo [facility] HORMONE [facility] PROCALCITONIN 2020-12-11 18:22:00 Vikas [facility] VITAMIN B1 (THIAMINE), 2020-12-11 18:22:00 Paul Bean Sivakumar [facility] WHOLE BLOOD [facility] HEAD WO CONTRAST 2020-12-11 14:07:35 Sweetie Stout [facility] URINALYSIS 2020-12-11 13:44:00 Singer [facility] URINE CULTURE 2020-12-11 13:44:00 [facility] COVID-19 (ID NOW RAPID 2020-12-11 12:31:00 Paco Lacey [facility] TESTING) [facility] LAB ONLY COVID 2020-12-11 12:31:00 Singer [facility] XR CHEST 1 VW 2020-12-11 12:07:24 Singer [facility] BLOOD CULTURE SCREEN 2020-12-11 12:02:00 Paco Lacey [facility] MAGNESIUM 2020-12-11 12:02:00 Paul Bean Sivakumar [facility] FERRITIN SERUM 2020-12-11 12:02:00 Darnell Beanaham Sivakumar [facility] COMP. METABOLIC PANEL 2020-12-11 12:02:00 Paco Lacey [facility] ([id number]) Medical Branch CBC WITH DIFF 2020-12-11 12:02:00 Singer [facility] LACTIC ACID WHOLE BLOOD 2020-12-11 12:02:00 Paco [facility] BLOOD CULTURE SCREEN 2020-12-11 11:42:00 Paco Lacey [facility] EMERGENCY SERVICES 2020-12-11 06:01:00 Doctor Tabitha [facility] AGREEMENTS AND [place] [facility] AUTHORIZATIONS HOSPITAL ADMISSION 2020-12-11 06:01:00 Doctor Tabitha [facility] Name Medical [facility] HEALTH - OTHER 2020-11-11 06:01:00 Doctor Tabitha [facility] [place] [facility] HEALTH - OTHER 2020-10-30 06:01:00 Doctor Tabitha [facility] Name Medical [place] EXTERNAL PROVIDER RECORDS 2020-09-01 06:01:00 Doctor Tabitha [facility] Name [facility] POCT GLUCOSE (AUTOMATED) 2020-08-23 18:09:[address] [facility] POCT GLUCOSE (AUTOMATED) 2020-08-23 14:14:[address] [facility] MAGNESIUM 2020-08-23 11:18:00 [facility] BASIC METABOLIC PANEL 2020-08-23 11:18:00 [facility] (NA, K, CL, CO2, GLUCOSE, Medica l Branch BUN, CREATININE, CA) CBC WITH DIFF 2020-08-23 11:18:00 [facility] POCT GLUCOSE (AUTOMATED) 2020-08-23 10:21:00 [facility]SE ([facility]OM[facility]) 2020-08-23 05:55:[address] [facility] POCT GLUCOSE (AUTOMATED) 2020-08-23 03:00:[address] [facility] POCT GLUCOSE (AUTOMATED) 2020-08-22 23:38:[address] [facility] POCT GLUCOSE (AUTOMATED) 2020-08-22 19:04:[address] [facility] POCT GLUCOSE (AUTOMATED) 2020-08-22 13:49:[address] [facility] MAGNESIUM 2020-08-22 10:10:00 [facility] 2020-08-22 10:10:00 Jill Aguila [facility] ([id number]) (ALB,T.PRO,BILI Medical Branch T,BU/BC,ALT,AST,ALK PHOS) BASIC METABOLIC PANEL 2020-08-22 10:10:00 [place], [facility] (NA, K, CL, CO2, GLUCOSE, Medica l Branch BUN, CREATININE, CA) LIPID PANEL ([id number])(TOTAL 2020-08-22 10:10:00 [place], [facility] TRIGLYCERIDES, HDL) CBC WITH DIFF 2020-08-22 10:10:00 [facility] POCT GLUCOSE (AUTOMATED) 2020-08-22 10:10:[address] [facility] POCT GLUCOSE (AUTOMATED) 2020-08-22 07:13:[address] [facility] POCT GLUCOSE (AUTOMATED) 2020-08-22 02:24:[address] [facility] POCT GLUCOSE (AUTOMATED) 2020-08-21 23:40:[address] [facility] POCT GLUCOSE (AUTOMATED) 2020-08-21 18:10:[address] [facility] POCT GLUCOSE (AUTOMATED) 2020-08-21 13:39:[address] [facility] ETHANOL 2020-08-21 12:35:00 Jos Quiroz [facility] ACTIVATED PARTIAL 2020-08-21 12:35:00 Padmini [facility] THRMPLAS [facility] GALV ONLY - SYPHILIS 2020-08-21 12:35:00 Padmini Kelly [facility] IGG/IGM [facility] LACTATE DEHYDROGENASE 2020-08-21 10:09:00 Ramya, [facility] GALV/CLC ONLY - URINE 2020-08-21 10:09:00 Jos Quiroz [facility] DRUG (IMMUNOASSAY) - 4 ER Medica l Branch PANEL URINALYSIS 2020-08-21 10:09:00 Ramya, [facility] URINE CULTURE 2020-08-21 10:09:00 Ramya, [facility] PROCALCITONIN 2020-08-21 10:09:00 [place], [facility] POCT GLUCOSE (AUTOMATED) 2020-08-21 09:41:[address] [facility] PROTHROMBIN TIME / INR 2020-08-21 08:32:00 Ramya, [facility] ACTIVATED PARTIAL 2020-08-21 08:32:00 Ramya, [facility] THRMPLAS [facility] C-REACTIVE PROTEIN 2020-08-21 08:31:00 [place], [facility] HEPATIC FUNCTION PANEL 2020-08-21 08:31:00 [place], [facility] ([id number]) (ALB,T.PRO,BILI [facility] Branch T,BU/BC,ALT,AST,ALK PHOS) BASIC METABOLIC PANEL 2020-08-21 08:31:00 Ramya, [facility] (NA, K, CL, CO2, GLUCOSE, [facility] [place] BUN, CREATININE, CA) SEDIMENTATION RATE 2020-08-21 08:31:00 [place], [facility] CBC WITH DIFF 2020-08-21 08:31:00 Ramya, [facility] GLYCOSYLATED HEMOGLOBIN 2020-08-21 08:31:00 [place], [facility] (A1C) [facility] HIV 1/2 AG-AB WITH REFLEX 2020-08-21 08:31:00 [facility] (ID NOW RAPID 2020-08-21 08:20:00 Ramya, [facility] TESTING) Medical Branch LAB ONLY COVID 2020-08-21 08:20:00 Ramya, [facility] o f [facility] Encounters Start End Encounter Admission Attending Care Care Encounter Source Date/Time Date/Time Type Type Clinicians Facility Department ID 2020-08-21 Inpatient Shayy WASHINGTON [facility] KVNG [id number] Univers 01:07:00 KELLY cantu [facility] 2021-08-22 2021-08-22 Emergency X [facility] ERT [id number] Univers 06:21:00 08:02:00 SWEETIE cantu [facility] 2021-08-22 2021-08-22 [facility] [id number] Univers 06:21:00 08:02:00 Sweetie OREN [id number] i ty of [place] [id number] [facility] 084 Branch 2021-08-09 2021-08-09 Outpatient ZAKI, [facility] [id number] [facility] 10:27:03 10:27:03 ADRIANA lopez of Medicin e 2020-12-28 2020-12-28 Telephone [facility] [id number] 00:00:00 00:00:00 Calvin H PRIMARY [id number] CARE 4.2.7.2.686 PAVILLION [id number] 220 2020-12-28 2020-12-28 Telephone [facility] [id number] Univers 00:00:00 00:00:00 Calvin H PRIMARY [id number] it y of CARE [id number] [place] [facility] [id number] Nh dical 220 Branch 2020-12-19 2020-12-19 Transition Tuan Peters 1.2.840.114 [id number] 00:00:00 00:00:00 of Care Ruchi Braswell [id number] [place] [id number] [id number] 2020-12-19 2020-12-19 Transition Tuan Peters [id number] Univers 00:00:00 00:00:00 of Care Ruchi Braswell [id number] it y of [place].7.2.[place] [id number] [facility] 403 Branch 2020-12-11 2020-12-17 [facility] Paco Lacey 1.2.840.1 [id number] 05:11:00 16:00:00 Encounter Rene Harrisony [id number] [facility] [id number] [id number] [facility] 2020-12-11 2020-12-17 [facility] 1.2.840.1 [id number] [facility] [place] [facility] 05:11:00 16:00:00 Encounter Rene Harrison [id number] ity of [facility] 4.2.7.2.686 [place] [id number] [facility] 096 [place] 2020-12-11 2020-12-11 Emergency [facility] [id number] Univers 05:11:00 05:11:00 [facility] 2020-11-16 2020-11-16 Emergency X [facility] ERT [id number] Univers 09:31:00 09:31:00 [facility] 2020-11-11 2020-11-11 Orders Doctor BASILIA 1.2.840.114 [id number] 00:00:00 00:00:00 Only Unassigned, NATTY [id number] [place] [facility] 4.2.7.2.686 [id number] 2020-11-11 2020-11-11 Orders Doctor BASILIA 1.2.840.114 [id number] Univers 00:00:00 00:00:00 Only Unassigned, NATTY [id number] ity of [place] [facility] 4.2.7.2.686 Jeff as [id number] [facility] 009 [place] 2020-11-07 2020-11-07 Telephone Wilder [facility] [id number] 00:00:00 00:00:00 Angi Bosch [place] [id number] [place] 4.2.7.2.686 Professio [id number] [address] 2020-11-07 2020-11-07 Telephone Hdz [facility] [id number] [facility] 00:00:00 00:00:00 Sendil Danitza [place] [id number] ity of [place].2.[place] Profess[place] [id number] [address] 2020-10-30 2020-10-30 Orders Doctor BASILIA 1.2.840.114 [id number] 00:00:00 00:00:00 Only Unassigned, NATTY [id number] [facility] [facility] 4.2.7.2.686 [id number] [facility] 2020-10-30 2020-10-30 Orders Doctor CUI 1.2.840.114 [id number] Univers 00:00:00 00:00:00 Only Unassigned, NATTY [id number] ity of [place] [facility] 4.2.7.2.686 Jeff as [id number] [address] 2020-09-26 2020-09-26 Telephone [facility] 1.2.840.114 [id number] 00:00:00 00:00:00 [facility] [id number] CLINICS 4.2.7.2.686 [id number] [facility] 2020-09-26 2020-09-26 Telephone [facility] 1.2.840.114 [id number] Univers 00:00:00 00:00:00 [facility] [id number] i ty of CL[place]ICS [place]2.7.2.[place] [id number] [address] 2020-09-01 2020-09-01 Orders Doctor CUI 1.2.840.114 [id number] 00:00:00 00:00:00 Only Unassigned, NATTY [id number] [facility] 4.2.7.2.686 [id number] [id number] 2020-09-01 2020-09-01 Orders Doctor BASILIA 1.2.840.114 [id number] Univers 00:00:00 00:00:00 Only Unassigned, NATTY [id number] ity of [place] [facility] 4.2.7.2.686 Jeff as [id number] [facility] 009 Branch 2020-08-25 2020-08-25 Transition Tuan Peters 1.2.840.114 [id number] 00:00:00 00:00:00 of Care Ruchi Braswell [id number] [place] 4.2.7.2.686 [id number] [facility] 2020-08-25 2020-08-25 Transition Tuan Peters 1.2.840.114 [id number] [facility] 00:00:00 00:00:00 of Care Ruchi Garciay [id number] it y of [place] [id number] [address] 2020-08-21 2020-08-23 [facility] Ayleen 1.2.840.114 [id number] 01:07:00 18:35:00 Encounter Kelly Amaya [id number] [facility] 4.2.7.2.686 [id number] [facility] 2020-08-21 2020-08-23 [facility] 1. 2.840.114 [id number] [facility] 01:07:00 18:35:00 Encounter Mukul Gallardo BebaSarbjit Amaya 350.1.13. 10 ity [facility] 4.2.7.2.686 Jeff as [id number] [address] Results Test Description Test Time Test Comments Results Result Comments Source POCT GLUCOSE (AUTOMATED) 2020-12-17 15:43:35 Test Item Value Reference Range Interpretation Comme nts POCT GLU (test code = 0091045382) 129 mg/dL 70-110 H Lab Interpretation (test code = 23166-4) Abnormal [facility] METABOLIC PANEL (NA, K, CL, CO2, GLUCOSE, BUN, CREATININE, CA)2020-12-17 11:45:07 Test Item Value Reference Range Interpretation Comments NA (test code = 137 mmol/L 135-145 [id number]) K (test code = 3.5 mmol/L 3.5-5.0 4930065790) CL (test code = 103 mmol/L 98-108 0820510132) CO2 TOTAL (test code = 26 mmol/L 23-31 8119617895) AGAP (test code = 2-16 7805689731) BUN (test code = 11 mg/dL 7-23 8071452706) GLUCOSE (test code = 175 mg/dL 70-110 H 5623419877) CREATININE (test code = 0.62 mg/dL 0.60-1.25 0834299421) CALCIUM (test code = 9.0 mg/dL 8.6-10.6 9467497518) eGFR Calculation mL/min/1.73m2 (Non-) (test code = 3673314018) eGFR Calculation mL/min/1.73m2 () (test code = 7954271838) JAMES (test code = JAMES) Association of [...] tests). Lab Interpretation Abnormal (test code = 55499-1) [facility] WITH [id number] 11:07:27 Test Item Value Reference Range Interpretation [...] RDW-SD (test code = 45.2 fL 38.5-51.6 02154-7) RDW-CV (test code = 16.9 % 12.1-15.4 H 788-0) PLT (test code = See_Comment H [Automated 777-3) message] The sy stem which generated this result transmitted reference range : 150 - 328 10*3/ ?L. The reference r torito was not used to interpret this result as normal/abnormal . MPV (test code = 8.1 fL 9.8-13.0 L 37057-8) NRBC/100 WBC (test See_Comment [Automat ed code = 6363016336) message] The system which generated this result transmitted reference range : 0.0 - 10.0 /100 WBCs. The refer ence range was not u sed to interpret th is result as normal/abnormal . NRBC x10^3 (test code <0.01 See_Comment [Auto mated = 5696322264) message] The s ystem which generated this result transmitted reference range : 10*3/?L. The reference range was not used to interpret this result as normal/abnormal . GRAN MAT (NEUT) % 72.8 % (test code = 770-8) IMM GRAN % (test code 0.60 % = 9546416157) LYMPH % (test code = 18.4 % 736-9) MONO % (test code = 5.7 % 5905-5) EOS % (test code = 1.8 % 713-8) BASO % (test code = 0.7 % 706-2) GRAN MAT x10^3(ANC) 8.23 10*3/uL 1.99-6.95 H (test code = 5400664784) IMM GRAN x10^3 (test 0.07 10*3/uL 0.00-0.06 H code = 1043500205) LYMPH x10^3 (test code 2.08 10*3/uL 1.09-3.23 = 731-0) MONO x10^3 (test code 0.65 10*3/uL 0.36-1.02 = 742-7) EOS x10^3 (test code = 0.20 10*3/uL 0.06-0.53 711-2) BASO x10^3 (test code 0.08 10*3/uL 0.01-0.09 = 704-7) Lab Interpretation Abnormal (test code = 03131-4) [facility] 06:03:38 Test Item Value Reference Range Interpretation Comments POCT GLU (test code = 0020018649) 75 mg/dL 70-110 Lab Interpretation (test code = Normal 75496-6) [facility]IT[facility] B6, [id number] 00:01:00 Test Item Value Reference Range Interpretation Comments VIT B6 (test code = 13.1 nmol/L 20.0-125.0 L INTERPRE TIVE 47132-3) INFORMATION: Vi tamin B6 (Pyridoxal 5-Phosphate) Pyridoxal 5'-phosphate me asured in a specimen collected follo wing an 8-hour or overnight fast accurately clara cates vitamin B6 nutritional sta tus. Non-fasting spe cimen concentration reflects recent vitamin intake. This test was develo ped and its perform ance characteristics determined by A [facility]. I t has not been cleare d or approved by the [place] Food and Drug Administration. This test was perfor med in a CLIA certifie d laboratory and is intended for cl inical purposes.Perfor med By: Dou[employer] [place] [address] [id number] Director: Namrata Klein MD Lab Interpretation Abnormal (test code = 08592-2) [facility] TIBIA FIBULA 2 VW [id number] 23:57:09 Tricompartmental knee joint osteoarthrosis.XR TIBIA FIBULA [...] No acute fracture or dislocation.IMPRESSIONTricompartmental knee joint osteoarthrosis.[facility] GLUCOSE (AUTOMATED) 2020-12-16 23:27:00 Test Item Value Reference Range Interpretation Comments POCT GLU (test code = 2986743758) 114 mg/dL 70-110 H Lab Interpretation (test code = Abnormal 45799-8) [facility] GLUCOSE (AUTOMATED)2020-12-16 20:12:00 Test Item Value Reference Range Interpretation Comments POCT GLU (test code = 8718553348) 105 mg/dL 70-110 Lab Interpretation (test code = Normal 53482-7) [facility] GLUCOSE (AUTOMATED)2020-12-16 14:44:00 Test Item Value Reference Range Interpretation Comments POCT GLU (test code = 2880018407) 153 mg/dL 70-110 H Lab Interpretation (test code = Abnormal 61375-7) [facility] (NA, K, CL, CO2, GLUCOSE, BUN, CREATININE, CA)2020-12-16 14:23:00 Test Item Value Reference Range Interpretation Comments NA (test code = 138 mmol/L 135-145 8330763641) K (test code = 3.4 mmol/L 3.5-5.0 L 8464961752) CL (test code = 100 mmol/L 98-108 8975503717) CO2 TOTAL (test code = 31 mmol/L 23-31 2162801081) AGAP (test code = 2-16 7434242522) BUN (test code = 11 mg/dL 7-23 2488516761) GLUCOSE (test code = 162 mg/dL 70-110 H 4903888266) CREATININE (test code = 0.64 mg/dL 0.60-1.25 0289115232) CALCIUM (test code = 8.9 mg/dL 8.6-10.6 5552794380) eGFR Calculation mL/min/1.73m2 (Non-) (test code = 4392369722) eGFR Calculation mL/min/1.73m2 () (test code = 0197746889) JAMES (test code = JAMES) Association of [...] tests). Lab Interpretation Abnormal (test code = 82596-9) [facility] WITH [id number] 14:05:00 Test Item Value Reference Range Interpretation [...] RDW-SD (test code = 45.4 fL 38.5-51.6 23564-4) RDW-CV (test code = 17.0 % 12.1-15.4 H 788-0) PLT (test code = See_Comment H [Automated 777-3) message] The sy stem which generated this result transmitted reference range : 150 - 328 10*3/ ?L. The reference r torito was not used to interpret this result as normal/abnormal . MPV (test code = 8.0 fL 9.8-13.0 L 01105-0) NRBC/100 WBC (test See_Comment [Automat ed code = 5028414926) message] The system which generated this result transmitted reference range : 0.0 - 10.0 /100 WBCs. The refer ence range was not u sed to interpret th is result as normal/abnormal . NRBC x10^3 (test code <0.01 See_Comment [Auto mated = 3826521077) message] The s ystem which generated this result transmitted reference range : 10*3/?L. The reference range was not used to interpret this result as normal/abnormal . GRAN MAT (NEUT) % 70.0 % (test code = 770-8) IMM GRAN % (test code 0.70 % = 6103911450) LYMPH % (test code = 20.5 % 736-9) MONO % (test code = 7.1 % 5905-5) EOS % (test code = 1.0 % 713-8) BASO % (test code = 0.7 % 706-2) GRAN MAT x10^3(ANC) 9.44 10*3/uL 1.99-6.95 H (test code = 0242741045) IMM GRAN x10^3 (test 0.09 10*3/uL 0.00-0.06 H code = 5971525461) LYMPH x10^3 (test code 2.76 10*3/uL 1.09-3.23 = 731-0) MONO x10^3 (test code 0.96 10*3/uL 0.36-1.02 = 742-7) EOS x10^3 (test code = 0.13 10*3/uL 0.06-0.53 711-2) BASO x10^3 (test code 0.10 10*3/uL 0.01-0.09 H = 704-7) Lab Interpretation Abnormal (test code = 11828-8) [facility] Tyler[facility] Culture - Peripheral # [id number] 13:01:00 Test Item Value Reference Range Interpretation Comments Blood Culture-Aerobic No organisms No growth Previo us (test code = 63546-6) isolated prelim inary verified result was Culture In Progress on 12/11/2020 at 100 1 CSTPrevious preliminary verified result was No growth a t 24 hours on 12/12/2020 at 070 1 CSTPrevious preliminary verified result was No growth a t 48 hours on 12/13/2020 at 070 1 CSTPrevious preliminary verified result was No growth a t 72 hours on 12/14/2020 at 070 1 [employer] Blood No organisms No growth Previous Culture-Anaerobic isolated preliminar y (test code = 79265-1) verifi ed result was Culture In Progress on 12/11/2020 at 100 1 CSTPrevious preliminary verified result was No growth a t 24 hours on 12/12/2020 at 070 1 CSTPrevious preliminary verified result was No growth a t 48 hours on 12/13/2020 at 070 1 CSTPrevious preliminary verified result was No growth a t 72 hours on 12/14/2020 at 070 1 [employer] Lab Interpretation Normal (test code = 81993-3) [facility] [id number] 13:01:00 Test Item Value Reference Range Interpretation Comments Blood Culture-Aerobic No organisms No growth Previo us (test code = 66141-5) isolated prelim inary verified result was Culture In Progress on 12/11/2020 at 100 1 CSTPrevious preliminary verified result was No growth a t 24 hours on 12/12/2020 at 070 1 CSTPrevious preliminary verified result was No growth a t 48 hours on 12/13/2020 at 070 1 CSTPrevious preliminary verified result was No growth a t 72 hours on 12/14/2020 at 070 1 [employer] Blood No organisms No growth Previous Culture-Anaerobic isolated preliminar y (test code = 48076-3) verifi ed result was Culture In Progress on 12/11/2020 at 100 1 CSTPrevious preliminary verified result was No growth a t 24 hours on 12/12/2020 at 070 1 CSTPrevious preliminary verified result was No growth a t 48 hours on 12/13/2020 at 070 1 CSTPrevious preliminary verified result was No growth a t 72 hours on 12/14/2020 at 070 1 [employer] Lab Interpretation Normal (test code = 62157-6) [facility] GLUCOSE (AUTOMATED)2020-12-16 04:01:00 Test Item Value Reference Range Interpretation Comments POCT GLU (test code = 9846083752) 156 mg/dL 70-110 H Lab Interpretation (test code = Abnormal 55134-5) [facility] GLUCOSE (AUTOMATED)2020-12-16 00:24:00 Test Item Value Reference Range Interpretation Comments POCT GLU (test code = 6915108060) 115 mg/dL 70-110 H Lab Interpretation (test code = Abnormal 26651-6) [facility] CHEST PULMONARY [id number] 23:34:55No pulmonary emboli. No interval change in [...] of intra and extrahepatic biliary du ctal dilatation.[facility] GLUCOSE (AUTOMATED) 2020-12-15 19:28:00 Test Item Value Reference Range Interpretation Comments POCT GLU (test code = 7675812971) 140 mg/dL 70-110 H Lab Interpretation (test code = Abnormal 57957-1) [facility]2021-[facility]-05 15:26:00 Test Item Value Reference Range Interpretation Comments MAGNESIUM (test code = 0713697075) 2.2 mg/dL 1.7-2.4 Lab Interpretation (test code = Normal 53665-5) [facility]ATED)2020-12-15 15:15:00 Test Item Value Reference Range Interpretation Comments POCT GLU (test code = 1586608368) 181 mg/dL 70-110 H Lab Interpretation (test code = Abnormal 52469-2) [facility] (NA, K, CL, CO2, GLUCOSE, BUN, CREATININE, CA)2020-12-15 13:07:00 Test Item Value Reference Range Interpretation Comments NA (test code = 136 mmol/L 135-145 8203005417) K (test code = 3.6 mmol/L 3.5-5.0 3298000129) CL (test code = 96 mmol/L 98-108 L 5984669502) CO2 TOTAL (test code = 29 mmol/L 23-31 9323415083) AGAP (test code = 2-16 5848890072) BUN (test code = 12 mg/dL 7-23 1365730549) GLUCOSE (test code = 183 mg/dL 70-110 H 3284263567) CREATININE (test code = 0.70 mg/dL 0.60-1.25 2316271320) CALCIUM (test code = 9.2 mg/dL 8.6-10.6 8168034487) eGFR Calculation mL/min/1.73m2 (Non-) (test code = 2437080484) eGFR Calculation mL/min/1.73m2 () (test code = 4685031594) JAMES (test code = JAMES) Association of [...] tests). Lab Interpretation Abnormal (test code = 32371-8) [facility] WITH [id number] 12:32:00 Test Item Value Reference Range Interpretation Comments WBC (test code = See_Comment H [Automated 6590-2) message] The system which generated this result transmit ronan reference range : 4.20 - 10.70 10*3/?L. The reference range was not used to interpret this result as normal/abnormal . RBC (test code = See_Comment H [Automated 909-8) message] The system which generated this result [...] RDW-SD (test code = 44.4 fL 38.5-51.6 28023-5) RDW-CV (test code = 17.7 % 12.1-15.4 H 788-0) PLT (test code = See_Comment H [Automated 777-3) message] The system which generated this result transmit ronan reference range : 150 - 328 10*3/ ?L. The reference range was not u sed to interpret th is result as normal/abnormal . MPV (test code = 8.1 fL 9.8-13.0 L 16862-5) NRBC/100 WBC (test See_Comment [Automat ed code = 0736488962) message] The system which generated this result transmit ronan reference range : 0.0 - 10.0 /100 WBCs. The reference range was not used to interpret this result as normal/abnormal . NRBC x10^3 (test code <0.01 See_Comment [Auto mated = 0026255798) message] The system which generated this result transmit ronan reference range : 10*3/?L. The reference range was not used to interpret this result as normal/abnormal . GRAN MAT (NEUT) % 74.5 % (test code = 770-8) IMM GRAN % (test code 0.70 % = 8744550634) LYMPH % (test code = 17.4 % 736-9) MONO % (test code = 6.8 % 5905-5) EOS % (test code = 0.2 % 713-8) BASO % (test code = 0.4 % 706-2) GRAN MAT x10^3(ANC) 11.99 10*3/uL 1.99-6.95 H (test code = 9228162895) IMM GRAN x10^3 (test 0.11 10*3/uL 0.00-0.06 H code = 2618444866) LYMPH x10^3 (test code 2.80 10*3/uL 1.09-3.23 = 731-0) MONO x10^3 (test code 1.10 10*3/uL 0.36-1.02 H = 742-7) EOS x10^3 (test code = 0.03 10*3/uL 0.06-0.53 L 711-2) BASO x10^3 (test code 0.06 10*3/uL 0.01-0.09 = 704-7) Lab Interpretation Abnormal (test code = 95722-7) [facility] GLUCOSE (AUTOMATED)2020-12-15 04:16:00 Test Item Value Reference Range Interpretation Comments POCT GLU (test code = 6401389809) 200 mg/dL 70-110 H Lab Interpretation (test code = Abnormal 78197-2) [facility] (THIAMINE), WHOLE [id number] 00:30:00 Test Item Value Reference Range Interpretation Comments Vitamin B1, Whole 136 nmol/L 70-180 INTERPRETI VE INFORMATION: Blood (test code = Vitamin B 1, Whole Blood 39055-8) This assay júnior ures the concentration o [...] its performance characteristics determined by A [facility]. I t has not been cleared or approved by the [place] Food and Drug Administration. This test was performed i n a CLIA certified labor atory and is intended for clinical purposes.Perfor med By: [facility] [place] [address] [id number] aboratory Director: Namrata Klein MD [facility] GLUCOSE (AUTOMATED)2020-12-14 23:35:00 Test Item Value Reference Range Interpretation Comments POCT GLU (test code = 5466958993) 151 mg/dL 70-110 H Lab Interpretation (test code = Abnormal 70551-8) [facility] GLUCOSE (AUTOMATED)2020-12-14 19:19:00 Test Item Value Reference Range Interpretation Comments POCT GLU (test code = 0057103638) 193 mg/dL 70-110 H Lab Interpretation (test code = Abnormal 20337-7) [facility] GLUCOSE (AUTOMATED)2020-12-14 15:22:00 Test Item Value Reference Range Interpretation Comments POCT GLU (test code = 0402500258) 221 mg/dL 70-110 H Lab Interpretation (test code = Abnormal 29321-5) [facility] GLUCOSE (AUTOMATED)2020-12-14 02:37:00 Test Item Value Reference Range Interpretation Comments POCT GLU (test code = 0451776531) 210 mg/dL 70-110 H Lab Interpretation (test code = Abnormal 92929-2) [facility] GLUCOSE (AUTOMATED)2020-12-13 23:33:00 Test Item Value Reference Range Interpretation Comments POCT GLU (test code = 6619120424) 182 mg/dL 70-110 H Lab Interpretation (test code = Abnormal 32749-7) [facility] GLUCOSE (AUTOMATED)2020-12-13 18:09:00 Test Item Value Reference Range Interpretation Comments POCT GLU (test code = 3801000082) 150 mg/dL 70-110 H Lab Interpretation (test code = Abnormal 36135-0) [facility] METABOLIC PANEL (NA, K, CL, CO2, GLUCOSE, BUN, CREATININE, CA)2020-12-13 16:27:00 Test Item Value Reference Range Interpretation Comments NA (test code = 136 mmol/L 135-145 6247793097) K (test code = 3.7 mmol/L 3.5-5.0 5611546094) CL (test code = 96 mmol/L 98-108 L 8319673285) CO2 TOTAL (test code = 29 mmol/L 23-31 9635246269) AGAP (test code = 2-16 1145140659) BUN (test code = 6 mg/dL 7-23 L 3102699430) GLUCOSE (test code = 212 mg/dL 70-110 H 9371239155) CREATININE (test code = 0.61 mg/dL 0.60-1.25 6518179384) CALCIUM (test code = 9.5 mg/dL 8.6-10.6 7712133388) eGFR Calculation mL/min/1.73m2 (Non-) (test code = 4981641515) eGFR Calculation mL/min/1.73m2 () (test code = 3374442156) JAMES (test code = JAMES) Association of [...] tests). Lab Interpretation Abnormal (test code = 86204-2) [facility] WITH [id number] 16:10:00 Test Item Value Reference Range Interpretation Comments WBC (test code = See_Comment H [Automated 8890-2) message] The sy stem which generated this result transmitted reference range : 4.20 - 10.70 10*3/?L. The reference range was not used to interpret this result as normal/abnormal . RBC (test code = See_Comment H [Automated 409-8) message] The sy stem which generated this [...] RDW-SD (test code = 43.3 fL 38.5-51.6 42671-4) RDW-CV (test code = 16.2 % 12.1-15.4 H 788-0) PLT (test code = See_Comment H [Automated 777-3) message] The sy stem which generated this result transmitted reference range : 150 - 328 10*3/ ?L. The reference r torito was not used to interpret this result as normal/abnormal . MPV (test code = 8.2 fL 9.8-13.0 L 96934-4) NRBC/100 WBC (test See_Comment [Automat ed code = 8248223907) message] The system which generated this result transmitted reference range : 0.0 - 10.0 /100 WBCs. The refer ence range was not u sed to interpret th is result as normal/abnormal . NRBC x10^3 (test code <0.01 See_Comment [Auto mated = 7268675511) message] The s ystem which generated this result transmitted reference range : 10*3/?L. The reference range was not used to interpret this result as normal/abnormal . GRAN MAT (NEUT) % 86.2 % (test code = 770-8) IMM GRAN % (test code 0.70 % = 2156223266) LYMPH % (test code = 10.2 % 736-9) MONO % (test code = 2.5 % 5905-5) EOS % (test code = 0.1 % 713-8) BASO % (test code = 0.3 % 706-2) GRAN MAT x10^3(ANC) 9.61 10*3/uL 1.99-6.95 H (test code = 6402173218) IMM GRAN x10^3 (test 0.08 10*3/uL 0.00-0.06 H code = 5117445015) LYMPH x10^3 (test code 1.14 10*3/uL 1.09-3.23 = 731-0) MONO x10^3 (test code 0.28 10*3/uL 0.36-1.02 L = 742-7) EOS x10^3 (test code = <0.03 0.06-0.53 L 711-2) BASO x10^3 (test code 0.03 10*3/uL 0.01-0.09 = 704-7) Lab Interpretation Abnormal (test code = 99323-2) [facility]2020-12-13 14:16:00 Test Item Value Reference Range Interpretation Comments POCT GLU (test code = 0118682122) 236 mg/dL 70-110 H Lab Interpretation (test code = Abnormal 24947-9) [facility] COVID [id number] 04:58:00COVID DMT InterpretationInterpretation/Recommendations: Molecular NAAT Tests for [...] COVID-19 testing the patient has had at [facility], including molecular NAAT testing (more commonly known as PCR testing and Rapid ID Now testing) and antibody testing. It does not take into account any testing that a patient has had outside of the [facility] medical record. [facility] LABORATORY SERVICESCOVID Resu zodDIZZ-BlE-[id number] Rapid ID NOW (no units) ? ? Date ? Value ? 12/11/2020 ? Not Detected ? ? ? 11/16/2020 ? Not Detected ? ? ? 08/21/2020 ?Not Detected ? [facility] 2020-12-13 03:11:00 Test Item Value Reference Range Interpretation Comments POCT GLU (test code = 2232924989) 171 mg/dL 70-110 H Lab Interpretation (test code = Abnormal 86343-9) [facility] GLUCOSE (AUTOMATED)2020-12-13 00:00:00 Test Item Value Reference Range Interpretation Comments POCT GLU (test code = 4035541341) 118 mg/dL 70-110 H Lab Interpretation (test code = Abnormal 58679-1) [facility] GLUCOSE (AUTOMATED)2020-12-12 20:29:00 Test Item Value Reference Range Interpretation Comments POCT GLU (test code = 3056049108) 173 mg/dL 70-110 H Lab Interpretation (test code = Abnormal 77512-6) [facility] ABDOMEN [id number] 19:56:17 1. ?Hepatic steatosis. However, limited evaluation [...] main portal veinwasevaluated with color Doppler imaging. De Icer Installer images were obtainedfor the record. COMPARISON: Ultrasound [...] normal where visualized. SPLEEN:No images were obtained. [facility], Radiant Results Inft User - 12/12/2020 1:57 PM CSTEXAM: US ABDOMEN LIMITEDHISTORY: 70 years-old male with RUQ ultrasound to assess for common bileduct dilation .TECHNIQUE: Limited abdominal ultrasound focused on the liver, biliarysystem, pancreas, and spleen was performed. The main portal vein wasevaluated with color Doppler imaging. De Icer Installer images were obtainedfor the record.COMPARISON: Ultrasound abdomen [...] this study and agree with the abovereport. [facility]2020-12-12 19:24:00 Test Item Value Reference Range Interpretation Comments POCT GLU (test code = 9705608542) 230 mg/dL 70-110 H Lab Interpretation (test code = Abnormal 63578-9) [facility] CHEST 1 [id number] 15:16:46 Low lung volumes with mild perihilar [...] have reviewed thisstudy and agree with theabove report.[facility]2020-12-12 14:34:00 Test Item Value Reference Range Interpretation Comments POCT GLU (test code = 7049137208) 225 mg/dL 70-110 H Lab Interpretation (test code = Abnormal 05427-8) [facility] TylerURINE [id number] 13:28:00 Test Item Value Reference Range Interpretation Comments URINE CULTURE (test < 10,000 CFU/mL mixed code = 630-4) aerobic organisms - suggests endogenous microbial contamination [facility] (NA, K, CL, CO2, GLUCOSE, BUN, CREATININE, CA)2020-12-12 10:05:00 Test Item Value Reference Range Interpretation Comments NA (test code = 136 mmol/L 135-145 3658170101) K (test code = 3.5 mmol/L 3.5-5.0 2593762685) CL (test code = 100 mmol/L 98-108 4362424341) CO2 TOTAL (test code = 31 mmol/L 23-31 2748486938) AGAP (test code = 2-16 3888733574) BUN (test code = 7 mg/dL 7-23 5362509814) GLUCOSE (test code = 259 mg/dL 70-110 H 2540059188) CREATININE (test code = 0.63 mg/dL 0.60-1.25 4219233962) CALCIUM (test code = 8.5 mg/dL 8.6-10.6 L 9601520577) eGFR Calculation mL/min/1.73m2 (Non-) (test code = 1632388652) eGFR Calculation mL/min/1.73m2 () (test code = 5526487336) JAMES (test code = JAMES) Association of [...] tests). Lab Interpretation Abnormal (test code = 69764-6) [facility] TylerMagnesium [id number] 10:05:00 Test Item Value Reference Range Interpretation Comments MAGNESIUM (test code = 5046759033) 1.9 mg/dL 1.7-2.4 Lab Interpretation (test code = Normal 20316-2) [facility] with [id number] 09:48:00 Test Item Value Reference Range Interpretation Comments WBC (test code = See_Comment [Automated 1992-2) message] The sy stem which generated this result transmitted reference range : 4.20 - 10.70 10*3/?L. The reference range was not used to interpret this result as normal/abnormal . RBC (test code = See_Comment [Automated 796-8) message] The sy stem which generated this [...] RDW-SD (test code = 46.0 fL 38.5-51.6 91306-0) RDW-CV (test code = 16.1 % 12.1-15.4 H 788-0) PLT (test code = See_Comment H [Automated 777-3) message] The sy stem which generated this result transmitted reference range : 150 - 328 10*3/ ?L. The reference r torito was not used to interpret this result as normal/abnormal . MPV (test code = 8.6 fL 9.8-13.0 L 16496-0) NRBC/100 WBC (test See_Comment [Automat ed code = 4571980882) message] The system which generated this result transmitted reference range : 0.0 - 10.0 /100 WBCs. The refer ence range was not u sed to interpret th is result as normal/abnormal . NRBC x10^3 (test code <0.01 See_Comment [Auto mated = 1011310279) message] The s ystem which generated this result transmitted reference range : 10*3/?L. The reference range was not used to interpret this result as normal/abnormal . GRAN MAT (NEUT) % 70.2 % (test code = 770-8) IMM GRAN % (test code 0.30 % = 6056314009) LYMPH % (test code = 18.8 % 736-9) MONO % (test code = 5.0 % 5905-5) EOS % (test code = 5.2 % 713-8) BASO % (test code = 0.5 % 706-2) GRAN MAT x10^3(ANC) 6.05 10*3/uL 1.99-6.95 (test code = 9372821574) IMM GRAN x10^3 (test 0.03 10*3/uL 0.00-0.06 code = 3986026174) LYMPH x10^3 (test code 1.62 10*3/uL 1.09-3.23 = 731-0) MONO x10^3 (test code 0.43 10*3/uL 0.36-1.02 = 742-7) EOS x10^3 (test code = 0.45 10*3/uL 0.06-0.53 711-2) BASO x10^3 (test code 0.04 10*3/uL 0.01-0.09 = 704-7) Lab Interpretation Abnormal (test code = 02822-7) [facility] GLUCOSE (AUTOMATED)2020-12-12 03:42:00 Test Item Value Reference Range Interpretation Comments POCT GLU (test code = 196 mg/dL 70-110 H Notifi ed Provider [id number]) Lab Interpretation (test Abnormal code = 04564-8) [facility] 02[facility]24:00 Test Item Value Reference Range Interpretation Comments FOLATE SER (test code = 8598130861) 5.8 ng/mL 3.0-20.0 Lab Interpretation (test code = Normal 18326-3) [facility] TylerVIT[facility] B12, [id number] 00:55:00 Test Item Value Reference Range Interpretation Comments VIT B12 (test code = 844 pg/mL 240-930 0128984516) JAMES (test code = JAMES) Biotin has been reported to cause a positive bias, interpret results relative to patient's use of biotin. Lab Interpretation (test Normal code = 29605-4) [facility] GLUCOSE (AUTOMATED)2020-12-12 00:14:00 Test Item Value Reference Range Interpretation Comments POCT GLU (test code = 9791880419) 164 mg/dL 70-110 H Lab Interpretation (test code = Abnormal 62319-6) [facility] TylerCREATINE [id number] 23:42:00 Test Item Value Reference Range Interpretation Comments CK (test code = 9617601801) <20 33-194 L Lab Interpretation (test code = Abnormal 97623-8) [facility] TylerTHYROID STIMULATING [id number] 23:17:00 Test Item Value Reference Range Interpretation Comments TSH (test code = See_Comment Biotin has been 8644776669) reported to cau se a negative bias, interpret resul ts relative to pat ient's use of biotin. [Automated mess age] The system ticketea generated this result transmitted ref erence range: 0.45 - 4 .70 mIU/L. The refe rence range was not u sed to interpret this result as normal/abnor mal. Lab Interpretation (test Normal code = 17920-6) [facility] TylerXR HIPS 3 VW [id number] 21:41:53No appreciable fracture lines. RL: 6200 ICAL HISTORY:Pain. COMPARISON:none TECHNIQUE:XR HIPS 3 VW LEFT performed. Technical Quality: Adequate FINDINGS:There are no appreciable fracture lines or subluxations. ?There is grossanatomic alignment. ?No appreciable joint effusion. Moderate to severe hip joint space narrowing, with arthropathy. Marginalosteophytes and subchondral sclerosis. No osseous erosions. [facility], Radiant Results Inft User -12/11/2020 3:43 PM CSTCLINICAL HISTORY:Pain.COMPARISON:noneTECHNIQUE:XR HIPS 3 VW LEFT performed. Technical Quality: AdequateFINDINGS:There are no appreciable fracture lines or subluxations. There isgrossanatomic alignment. No appreciable joint effusion.Moderate to severe hip joint space narrowing, with arthropathy. Marginalosteophytes and subchondral sclerosis. No osseous erosions.IMPRESSIONNo appreciable fracture lines.RL: [address] [facility] HospitalPROCALCITONIN2021-03-01 20:00:00 Test Item Value Reference Range Interpretation Comments Procalcitonin (test 0.13 ng/mL <0.07 H code = 5468226422) JAMES (test code = JAMES) INTERPRETATION OF [...] lung abscess/empyema. For further information please refer to:[email or web address] Lab Interpretation Abnormal (test code = 81716-5) [facility] Tyler[facility]AUTOMATED)2020-12-11 19:07:00 Test Item Value Reference Range Interpretation Comments POCT GLU (test code = 8611044603) 274 mg/dL 70-110 H Lab Interpretation (test code = Abnormal 83611-1) [facility] TylerMAGNESIUM2021-03-01 18:31:00 Test Item Value Reference Range Interpretation Comments MAGNESIUM (test code = 7344410155) 1.9 mg/dL 1.7-2.4 Lab Interpretation (test code = Normal 43744-4) [facility] TylerFERRITIN [id number] 18:31:00 Test Item Value Reference Range Interpretation Comments FERRITIN (test code = 178.0 ng/mL 18.0-464.0 1873002526) JAMES (test code = JAMES) Biotin has been reported to cause a negative bias, interpret results relative to patient's use of biotin. Lab Interpretation (test Normal code = 82475-9) [facility] TylerCT HEAD WO [id number] 14:36:47 No acute intracranial abnormality. Dilated ventricles [...] reviewed this study and agree with the abovereport.[facility] TylerURINALYSIS2021-03-01 14:28:00 Test Item Value Reference Range Interpretation Comments APPEARANCE (test code = Clear Clear 1069549768) COLOR (test code = Yellow Yellow 9710155926) PH (test code = 4.8-8.0 0888009557) SP GRAVITY (test code = 1.003-1.030 4084469367) GLU U QUAL (test code = 500 mg/dL Normal A 6289762746) BLOOD (test code = Negative Negative 0479397178) KETONES (test code = 5 mg/dL Negative A 6450538080) PROTEIN (test code = Negative Negative 2887-8) UROBILIN (test code = Normal Normal 1480287261) BILIRUBIN (test code = Negative Negative 3081750202) NITRITE (test code = Negative Negative 2413033978) LEUK RYAN (test code = Negative Negative 6926897391) RBC/HPF (test code = See_Comment [Autom ated message] 5073569239) The system ticketea generated this result transmit ronan reference range : 0 - 3 HPF. The refe rence range was not u sed to interpret th is result as normal/abnormal . WBC/HPF (test code = See_Comment [Autom ated message] 2567914255) The system ticketea generated this result transmit ronan reference range : 0 - 5 HPF. The refe rence range was not u sed to interpret th is result as normal/abnormal . BACTERIA (test code = Negative Negative 3596655274) MUCOUS (test code = Slight Negative LPF A 5968459515) SQ EPITH (test code = HPF 7522208986) Lab Interpretation (test Abnormal code = 14804-4) [facility] TylerCOVID[facility] (ID NOW RAPID TESTING)2020-12-11 13:10:00 Test Item Value Reference Range Interpretation Comments SARS-CoV-2 Rapid ID NOW Not Detected Not Detected (test code = 04674-4) JAMES (test code = JAMES) ID NOW COVID-19 Assay is an isothermal nucleic acid amplification test intended for the qualitative detection of nucleic acid from SARS-CoV-2 viral RNA in nasopharyngeal ([employer]ACITY PLANNING ENGINEER) specimens. It is used under Emergency Use [...] indicated. Lab Interpretation Normal (test code = 41449-8) [facility] TylerCOM. METABOLIC PANEL (79172)2020-12-11 12:29:00 Test Item Value Reference Range Interpretation Comments NA (test code = 136 mmol/L 135-145 5249898351) K (test code = 3.5 mmol/L 3.5-5.0 0284343936) CL (test code = 95 mmol/L 98-108 L 6525393369) CO2 TOTAL (test code = 35 mmol/L 23-31 H 3249670069) AGAP (test code = 2-16 8547488865) BUN (test code = 9 mg/dL 7-23 7560029250) GLUCOSE (test code = 329 mg/dL 70-110 H 8281358847) CREATININE (test code = 0.72 mg/dL 0.60-1.25 1197613803) TOTAL BILI (test code = 0.6 mg/dL 0.1-1.5 1455679111) CALCIUM (test code = 9.0 mg/dL 8.6-10.6 8203099612) T PROTEIN (test code = 6.8 g/dL 6.3-8.2 0371378812) ALBUMIN (test code = 3.8 g/dL 3.5-5.0 8235669324) ALK PHOS (test code = 288 U/L 34-122 H 7195962612) ALTv (test code = 46 U/L 5-50 2-6) AST(SGOT) (test code = 38 U/L 13-40 8585728573) eGFR Calculation mL/min/1.73m2 (Non-) (test code = 3922535440) eGFR Calculation mL/min/1.73m2 () (test code = 4763380759) JAMES (test code = JAMES) Association of [...] tests). Lab Interpretation Abnormal (test code = 00713-4) [facility] TylerLactic Acid Whole [id number] 12:23:00 Test Item Value Reference Range Interpretation Comments LACTIC ACID (test code = 2.09 mmol/L 0.50-2.20 0516945785) Lab Interpretation (test code = Normal 34640-8) [facility] TylerCB WITH [id number] 12:17:00 Test Item Value Reference Range Interpretation [...] RDW-SD (test code = 44.9 fL 38.5-51.6 59064-9) RDW-CV (test code = 15.9 % 12.1-15.4 H 788-0) PLT (test code = See_Comment H [Automated 777-3) message] The sy stem which generated this result transmitted reference range : 150 - 328 10*3/ ?L. The reference r torito was not used to interpret this result as normal/abnormal . MPV (test code = 8.3 fL 9.8-13.0 L 25186-0) NRBC/100 WBC (test See_Comment [Automat ed code = 9592996318) message] The system which generated this result transmitted reference range : 0.0 - 10.0 /100 WBCs. The refer ence range was not u sed to interpret th is result as normal/abnormal . NRBC x10^3 (test code <0.01 See_Comment [Auto mated = 6832639378) message] The s ystem which generated this result transmitted reference range : 10*3/?L. The reference range was not used to interpret this result as normal/abnormal . GRAN MAT (NEUT) % 77.9 % (test code = 770-8) IMM GRAN % (test code 0.50 % = 1671262568) LYMPH % (test code = 12.2 % 736-9) MONO % (test code = 5.2 % 5905-5) EOS % (test code = 3.7 % 713-8) BASO % (test code = 0.5 % 706-2) GRAN MAT x10^3(ANC) 9.57 10*3/uL 1.99-6.95 H (test code = 9576780644) IMM GRAN x10^3 (test 0.06 10*3/uL 0.00-0.06 code = 1815010454) LYMPH x10^3 (test code 1.50 10*3/uL 1.09-3.23 = 731-0) MONO x10^3 (test code 0.64 10*3/uL 0.36-1.02 = 742-7) EOS x10^3 (test code = 0.46 10*3/uL 0.06-0.53 711-2) BASO x10^3 (test code 0.06 10*3/uL 0.01-0.09 = 704-7) Lab Interpretation Abnormal (test code = 27412-0) [facility] TylerLAB ONLY COVID [id number] 18:43:00COVID DMT InterpretationInterpretation/Recommendations: Molecular NAAT Test Results [...] a nasopharyngeal sample, there is approximately a koi-uz-ptfbr chance that the patient was infected and [...] upon aggregate data pooled from the [facility] medical record including both current and prior COVID-19 related testing results for the following tests offered at our institution:A. Tests for the Identification of SARS-CoV-2 RNA:SARS-CoV-2 PCR assays including [place] Aptima, [place] Fusion, Barrett RealTime, and YOHO Xpert Xpress. SARS-CoV-2 Rapid ID NOW by the ID NOW assay. ? B. Tests for the Identification of SARS-CoV-2 Antibodies: Chemiluminescent immunoassays including Access SARS-CoV-2 IgM (DXI 600), GliphoS Sphf-WLRD-BdV-2 IgG (Vitros 5600 and Vitros 3600), and Barrett SARS-CoV-2 IgG (SERVICE CASHIER I System). These interpretation comments assume that only the above testing was utilized and that the approved acceptable specimen type(s) were used for a given test. These interpretations are autopopulated into sliceX based on computerized algorithms matching an interpretation code number to the patient's set of test results. While a clinical pathologist evaluates the combinations for clinical accuracy, clinical correlation is recommended as it may not take into account very remote prior testing. Furthermore, it does not consider testing a patient may have had outside of the [facility] system. Additionally, it should be noted that the computerized algorithm treats the results for PCR testing and Rapid ID NOW testing (also PCR) synonymously, and thus, refers to both testing methodologies as PCR tests. Given that the sensitivity of [facility]'s Rapid ID NOW testingplatform is [...] panel may be beneficial in this setting. [facility] LABORATORY SERVICESCOVID CwaxujvOXFF-HkU-1 Rapid ID NOW (no units) ? ? Date ? Value ? 08/21/2020 ? Not Detected ? [facility]Un[facility]2020-08-23 18:25:00 Test Item Value Reference Range Interpretation Comments POCT GLU (test code = 3530474327) 297 mg/dL 70-110 H Lab Interpretation (test code = Abnormal 31639-3) [facility] GLUCOSE (AUTOMATED)2020-08-23 14:25:00 Test Item Value Reference Range Interpretation Comments POCT GLU (test code = 2058296269) 181 mg/dL 70-110 H Lab Interpretation (test code = Abnormal 96076-6) [facility] TylerBasic Metabolic Panel (NA, K, CL, CO2, GLUCOSE, BUN, CREATININE, CA)2020-08-23 11:45:00 Test Item Value Reference Range Interpretation Comments NA (test code = 132 mmol/L 135-145 L 6569111168) K (test code = 4.0 mmol/L 3.5-5 5244467370) CL (test code = 96 mmol/L 98-108 L 5817400851) CO2 TOTAL (test code = 33 mmol/L 23-31 H 9118895497) AGAP (test code = 2-16 4271092885) BUN (test code = 9 mg/dL 7-23 5742919703) GLUCOSE (test code = 176 mg/dL 70-110 H 3576993944) CREATININE (test code = 0.66 mg/dL 0.6-1.25 3136325946) CALCIUM (test code = 8.5 mg/dL 8.6-10.6 L 6499776011) eGFR Calculation mL/min/1.73m2 (Non-) (test code = 6277088378) eGFR Calculation mL/min/1.73m2 () (test code = 6008218352) JAMES (test code = JAMES) Association of [...] tests). Lab Interpretation Abnormal (test code = 74421-0) [facility] TylerMagnesium [id number] 11:45:00 Test Item Value Reference Range Interpretation Comments MAGNESIUM (test code = 5421358376) 2.0 mg/dL 1.7-2.4 Lab Interpretation (test code = Normal 23462-7) [facility] TylerCB with [id number] 11:38:00 Test Item Value Reference Range Interpretation [...] RDW-SD (test code = 41.8 fL 38.5-51.6 51238-9) RDW-CV (test code = 14.3 % 12.1-15.4 788-0) PLT (test code = See_Comment H [Automated 777-3) message] The sy stem which generated this result transmitted reference range : 150 - 328 10*3/ ?L. The reference r torito was not used to interpret this result as normal/abnormal . MPV (test code = 8.0 fL 9.8-13 L 90056-2) NRBC/100 WBC (test See_Comment [Automat ed code = 6536900658) message] The system which generated this result transmitted reference range : 0.0 - 10.0 /100 WBCs. The refer ence range was not u sed to interpret th is result as normal/abnormal . NRBC x10^3 (test code <0.01 See_Comment [Auto mated = 2820473792) message] The s ystem which generated this result transmitted reference range : 10*3/?L. The reference range was not used to interpret this result as normal/abnormal . GRAN MAT (NEUT) % 61.5 % (test code = 770-8) IMM GRAN % (test code 2.00 % = 5750079869) LYMPH % (test code = 25.5 % 736-9) MONO % (test code = 6.3 % 5905-5) EOS % (test code = 3.7 % 713-8) BASO % (test code = 1.0 % 706-2) GRAN MAT x10^3(ANC) 5.29 10*3/uL 1.99-6.95 (test code = 7995770310) IMM GRAN x10^3 (test 0.17 10*3/uL 0-0.06 H code = 6316026364) LYMPH x10^3 (test code 2.19 10*3/uL 1.09-3.23 = 731-0) MONO x10^3 (test code 0.54 10*3/uL 0.36-1.02 = 742-7) EOS x10^3 (test code = 0.32 10*3/uL 0.06-0.53 711-2) BASO x10^3 (test code 0.09 10*3/uL 0.01-0.09 = 704-7) Lab Interpretation Abnormal (test code = 97011-8) [facility] GLUCOSE (AUTOMATED)2020-08-23 10:22:00 Test Item Value Reference Range Interpretation Comments POCT GLU (test code = 2880044373) 164 mg/dL 70-110 H Lab Interpretation (test code = Abnormal 80374-9) [facility] GLUCOSE (AUTOMATED)2020-08-23 05:56:00 Test Item Value Reference Range Interpretation Comments POCT GLU (test code = 9714599723) 242 mg/dL 70-110 H Lab Interpretation (test code = Abnormal 65886-7) [facility] GLUCOSE (AUTOMATED)2020-08-23 03:02:00 Test Item Value Reference Range Interpretation Comments POCT GLU (test code = 7848863423) 210 mg/dL 70-110 H Lab Interpretation (test code = Abnormal 00251-9) [facility] GLUCOSE (AUTOMATED)2020-08-22 23:40:00 Test Item Value Reference Range Interpretation Comments POCT GLU (test code = 3469273113) 267 mg/dL 70-110 H Lab Interpretation (test code = Abnormal 28448-9) [facility] GLUCOSE (AUTOMATED)2020-08-22 19:08:00 Test Item Value Reference Range Interpretation Comments POCT GLU (test code = 6511036985) 191 mg/dL 70-110 H Lab Interpretation (test code = Abnormal 20303-6) [facility] GLUCOSE (AUTOMATED)2020-08-22 13:50:00 Test Item Value Reference Range Interpretation Comments POCT GLU (test code = 3035274687) 174 mg/dL 70-110 H Lab Interpretation (test code = Abnormal 21263-3) [facility] TylerURINE [id number] 12:59:00 Test Item Value Reference Range Interpretation Comments URINE CULTURE (test No aerobic growth (< code = 630-4) 1000 CFU/mL) [facility] with Pqbkbbjeoizi6573-14-38 11:28:00 Test Item Value Reference Range Interpretation Comments WBC (test code = See_Comment [Automated 7590-2) message] The sy stem which generated this result transmitted reference range : 4.20 - 10.70 10*3/?L. The reference range was not used to interpret this result as normal/abnormal . RBC (test code = See_Comment L [Automated 479-8) message] The sy stem which generated this [...] RDW-SD (test code = 42.5 fL 38.5-51.6 39790-3) RDW-CV (test code = 14.5 % 12.1-15.4 788-0) PLT (test code = See_Comment H [Automated 777-3) message] The sy stem which generated this result transmitted reference range : 150 - 328 10*3/ ?L. The reference r torito was not used to interpret this result as normal/abnormal . MPV (test code = 8.0 fL 9.8-13 L 04254-4) NRBC/100 WBC (test See_Comment [Automat ed code = 8090848713) message] The system which generated this result transmitted reference range : 0.0 - 10.0 /100 WBCs. The refer ence range was not u sed to interpret th is result as normal/abnormal . NRBC x10^3 (test code <0.01 See_Comment [Auto mated = 6377348028) message] The s ystem which generated this result transmitted reference range : 10*3/?L. The reference range was not used to interpret this result as normal/abnormal . GRAN MAT (NEUT) % 69.1 % (test code = 770-8) IMM GRAN % (test code 2.20 % = 7737757329) LYMPH % (test code = 20.9 % 736-9) MONO % (test code = 5.8 % 5905-5) EOS % (test code = 1.0 % 713-8) BASO % (test code = 1.0 % 706-2) GRAN MAT x10^3(ANC) 6.51 10*3/uL 1.99-6.95 (test code = 7231579523) IMM GRAN x10^3 (test 0.21 10*3/uL 0-0.06 H code = 5433964743) LYMPH x10^3 (test code 1.97 10*3/uL 1.09-3.23 = 731-0) MONO x10^3 (test code 0.55 10*3/uL 0.36-1.02 = 742-7) EOS x10^3 (test code = 0.09 10*3/uL 0.06-0.53 711-2) BASO x10^3 (test code 0.09 10*3/uL 0.01-0.09 = 704-7) BASO STIPPLING (test Present A code = 703-9) BANDS (test code = Increased A 4123588476) TOXIC CHANGES (test Present A code = 803-7) Lab Interpretation Abnormal (test code = 90850-5) [facility] Metabolic Panel (NA, K, CL, CO2, GLUCOSE, BUN, CREATININE, CA)2020-08-22 11:12:00 Test Item Value Reference Range Interpretation Comments NA (test code = 135 mmol/L 135-145 2800065815) K (test code = 3.6 mmol/L 3.5-5 7200058319) CL (test code = 99 mmol/L 98-108 2504861077) CO2 TOTAL (test code = 31 mmol/L 23-31 6705971932) AGAP (test code = 2-16 1229580772) BUN (test code = 9 mg/dL 7-23 3675170509) GLUCOSE (test code = 198 mg/dL 70-110 H 9278959426) CREATININE (test code = 0.72 mg/dL 0.6-1.25 7414479867) CALCIUM (test code = 8.3 mg/dL 8.6-10.6 L 8173266378) eGFR Calculation mL/min/1.73m2 (Non-) (test code = 6988512958) eGFR Calculation mL/min/1.73m2 () (test code = 6834926263) JAMES (test code = JAMES) Association of [...] tests). Lab Interpretation Abnormal (test code = 27852-0) [facility] TylerMagnesium [id number] 11:12:00 Test Item Value Reference Range Interpretation Comments MAGNESIUM (test code = 4042674392) 2.0 mg/dL 1.7-2.4 Lab Interpretation (test code = Normal 00304-8) [facility] TylerLipid Panel (Total Cholesterol, Triglycerides, HDL) - [id number] 11:12:00 Test Item Value Reference Range Interpretation Comments CHOL (test code = 155 mg/dL 120-200 3437798919) HDL (test code = 42 mg/dL >40 0880733842) HDLC RATIO (test code = See_Comment [Au tomated message] 3339817219) The system ticketea generated this result transmit ronan reference range : <=5.0. The refe rence range was not u sed to interpret th is result as normal/abnormal . TRIG (test code = 186 mg/dL 30-170 H 3344618088) LDL CHOL (test code = 76 mg/dL See_Comment [Auto mated message] 94040-4) The system ticketea generated this result transmit ronan reference range : <=160. The refe rence range was not u sed to interpret th is result as normal/abnormal . VLDL (test code = 37 mg/dL 5-60 0658922055) Lab Interpretation (test Abnormal code = 40544-3) [facility] TylerHEPATIC FUNCTION PANEL (16173) (ALB,T.PRO,BILI T,BU/BC,ALT,AST,ALK PHOS)2020-08-22 11:12:00 Test Item Value Reference Range Interpretation Comments TOTAL BILI (test code = 4958950217) 0.6 mg/dL 0.1-1.1 BILI UNCON (test code = 4301499697) 0.2 mg/dL 0.1-1.1 BILI CONJ (test code = 1302215910) 0.0 mg/dL 0-0.3 T PROTEIN (test code = 4281780541) 6.0 g/dL 6.3-8.2 L ALBUMIN (test code = 7715598691) 2.8 g/dL 3.5-5 L ALK PHOS (test code = 8678440758) 222 U/L 34-122 H ALTv (test code = 1742-6) 27 U/L 5-50 AST(SGOT) (test code = 1361766279) 30 U/L 13-40 Lab Interpretation (test code = Abnormal 61792-2) [facility] GLUCOSE (AUTOMATED)2020-08-22 10:11:00 Test Item Value Reference Range Interpretation Comments POCT GLU (test code = 1319425505) 196 mg/dL 70-110 H Lab Interpretation (test code = Abnormal 08912-7) [facility] GLUCOSE (AUTOMATED)2020-08-22 07:15:00 Test Item Value Reference Range Interpretation Comments POCT GLU (test code = 7867059871) 183 mg/dL 70-110 H Lab Interpretation (test code = Abnormal 12999-0) [facility] GLUCOSE (AUTOMATED)2020-08-22 02:30:00 Test Item Value Reference Range Interpretation Comments POCT GLU (test code = 3442236251) 295 mg/dL 70-110 H Lab Interpretation (test code = Abnormal 52721-1) [facility] GLUCOSE (AUTOMATED)2020-08-21 23:46:00 Test Item Value Reference Range Interpretation Comments POCT GLU (test code = 7938590242) 258 mg/dL 70-110 H Lab Interpretation (test code = Abnormal 14727-8) [facility] TylerC-REACTIVE [id number] 18:50:00 Test Item Value Reference Range Interpretation Comments CRP (test code = 6168992608) 15.5 mg/dL <0.8 H Lab Interpretation (test code = Abnormal 41675-1) [facility] TylerPO[facility] GLU[facility]SE (AUTOMATED)2020-08-21 18:21:00 Test Item Value Reference Range Interpretation Comments POCT GLU (test code = 7301103206) 297 mg/dL 70-110 H Lab Interpretation (test code = Abnormal 77012-7) [facility] TylerETHANOL2020-11-09 16:24:00 Test Item Value Reference Range Interpretation Comments ALCOHOL (test code = <10 mg/dL 3164533217) JAMES (test code = Toxic Greater than or JAMES) equal to 80 mg/dL. NOTE: Whole blood values are approximately 10% to 15% lower than serum and plasma. [facility] TylerGALV/CLC ONLY - URINE DRUG (IMMUNOASSAY) - 4 ER [id number] 15:36:00 Test Item Value Reference Range Interpretation Comments AMPHET (test code = Negative Negative 2514486112) Cocaine Metabolite (test Negative Negative code = 0343526333) OPIATES (test code = Presumptive Positive Negative A 6730578312) THC (test code = Negative Negative 8424486729) JAMES (test code = JAMES) Urine Drug Cutoff Ranges Amphetamine: ? 1,000 ng/mLCocaine: ? 150 ng/mLOpiates: ? 300 ng/mLCannabinoids: ?50 ng/mL The results are to be used only for medical (i.e., treatment) purposes. Unconfirmed screening results must not be used for non-medical purposes (e.g., employment testing, legal testing). Lab Interpretation (test Abnormal code = 88490-8) [facility] - SYPHILIS IGG/[id number] 15:04:00 Test Item Value Reference Range Interpretation Comments Syphilis IgG/IgM (test Non-reactive Non-reactive code = 10751-5) JAMES (test code = JAMES) Non-reactive - No serologic evidence of T. pallidum infection. Cannot exclude incubating or early syphilis. Submit a second specimen in 2-4 weeks if syphilis is clinically suspected. Equivocal - Further testing to follow. Reactive - Further testing to follow. Lab Interpretation (test Normal code = 82411-4) [facility] [facility]inalysis[facility] 14:52:00 Test Item Value Reference Range Interpretation Comments APPEARANCE (test code = Clear Clear 1425288870) COLOR (test code = Yellow Yellow 6518794290) PH (test code = 4.8-8.0 9028626617) SP GRAVITY (test code = 1.003-1.030 3740719311) GLU U QUAL (test code = 500 mg/dL Normal A 4077246385) BLOOD (test code = Negative Negative 3882405610) KETONES (test code = 20 mg/dL Negative A 7141113708) PROTEIN (test code = Negative Negative 2887-8) UROBILIN (test code = Normal Normal 5648083182) BILIRUBIN (test code = Negative Negative 8750475446) NITRITE (test code = Negative Negative 7796520612) LEUK RYAN (test code = Negative Negative 8765461427) RBC/HPF (test code = <1 See_Comment [Autom ated message] 8540938294) The system ticketea generated this result transmit ronan reference range : 0 - 3 HPF. The refe rence range was not u sed to interpret th is result as normal/abnormal . WBC/HPF (test code = See_Comment [Autom ated message] 6537860494) The system ticketea generated this result transmit ronan reference range : 0 - 5 HPF. The refe rence range was not u sed to interpret th is result as normal/abnormal . BACTERIA (test code = Negative Negative 3982502943) MUCOUS (test code = Slight Negative LPF A 7748545310) Lab Interpretation (test Abnormal code = 30573-3) [facility]ACTIV[facility] THRMPLAS [id number] 13:45:00 Test Item Value Reference Range Interpretation Comments APTT Patient (test code = See_Comment [ Automated message] 3173-2) The system ticketea generated this result transmitted ref erence range: 26 - 36 Seconds. The re ference range was not u sed to interpret this result as normal/abnor mal. Lab Interpretation (test Normal code = 28831-7) [facility] 13:45:00 Test Item Value Reference Range Interpretation Comments POCT GLU (test code = 5918387466) 246 mg/dL 70-110 H Lab Interpretation (test code = Abnormal 40530-9) [facility] WITH [id number] 12:32:00 Test Item Value Reference Range Interpretation Comments HIV Negative Negative Semi-quantitative (test code = 73311-0) JAMES (test code = Non-reactive for HIV-1 JAMES) antigen and HIV-1/HIV-2 antibodies. ?No laboratory evidence of HIV infection. ?Repeat in 2-4 weeks if acute HIV infection is suspected. [facility] TylerCB WITH [id number] 12:18:00 Test Item Value Reference Range Interpretation Comments WBC (test code = See_Comment [Automated 2790-2) message] The sy stem which generated this [...] RDW-SD (test code = 44.4 fL 38.5-51.6 68074-9) RDW-CV (test code = 14.5 % 12.1-15.4 788-0) PLT (test code = See_Comment H [Automated 777-3) message] The sy stem which generated this result transmitted reference range : 150 - 328 10*3/ ?L. The reference r torito was not used to interpret this result as normal/abnormal . MPV (test code = 8.5 fL 9.8-13 L 79639-7) NRBC/100 WBC (test See_Comment [Automat ed code = 0417421887) message] The system which generated this result transmitted reference range : 0.0 - 10.0 /100 WBCs. The refer ence range was not u sed to interpret th is result as normal/abnormal . NRBC x10^3 (test code <0.01 See_Comment [Auto mated = 6271730895) message] The s ystem which generated this result transmitted reference range : 10*3/?L. The reference range was not used to interpret this result as normal/abnormal . GRAN MAT (NEUT) % 90.4 % (test code = 770-8) IMM GRAN % (test code 1.30 % = 6022727074) LYMPH % (test code = 7.1 % 736-9) MONO % (test code = 0.5 % 5905-5) EOS % (test code = 0.1 % 713-8) BASO % (test code = 0.6 % 706-2) GRAN MAT x10^3(ANC) 7.74 10*3/uL 1.99-6.95 H (test code = 5831923458) IMM GRAN x10^3 (test 0.11 10*3/uL 0-0.06 H code = 3393168619) LYMPH x10^3 (test code 0.61 10*3/uL 1.09-3.23 L = 731-0) MONO x10^3 (test code 0.04 10*3/uL 0.36-1.02 L = 742-7) EOS x10^3 (test code = <0.03 0.06-0.53 L 711-2) BASO x10^3 (test code 0.05 10*3/uL 0.01-0.09 = 704-7) POLYCHROMASIA (test 2+ See_Comment [Automa ronan code = 37073-3) message] The system which generated this result transmitted reference range : 2+. The referen ce range was not u sed to interpret th is result as normal/abnormal . BANDS (test code = Increased A 1647197407) Lab Interpretation Abnormal (test code = 61252-2) [facility] TylerPROCALCITONIN2020-11-09 11:48:00 Test Item Value Reference Range Interpretation Comments Procalcitonin (test 0.36 ng/mL <0.07 H code = 8287618515) JAMES (test code = JAMES) INTERPRETATION OF [...] lung abscess/empyema. For further information please refer to:[email or web address] Lab Interpretation Abnormal (test code = 75647-8) [facility] TylerLAWVATE [id number] 10:53:00 Test Item Value Reference Range Interpretation Comments LDH (test code = 1321620407) 351 U/L 300-600 Lab Interpretation (test code = Normal 53892-4) [facility] TylerSEDIMENTATION [id number] 10:07:00 Test Item Value Reference Range Interpretation Comments ESR (test code = See_Comment H [Automated message] 2108464191) The system ticketea generated this result transmitted ref erence range: 0 - 10 m m/HR. The reference r torito was not used to interpret this result as normal/abnor mal. Lab Interpretation (test Abnormal code = 53779-9) [facility] TylerPOWV GLUCOSE (AUTOMATED)2020-08-21 09:45:00 Test Item Value Reference Range Interpretation Comments POCT GLU (test code = 3828532578) 287 mg/dL 70-110 H Lab Interpretation (test code = Abnormal 77448-3) [facility] TylerGlycosylated Hemoglobin (A1C)2020-08-21 09:29:00 Test Item Value Reference Range Interpretation Comments HGB A1C (test code = 4548-4) 9.8 % 4-6 H Lab Interpretation (test code = Abnormal 42768-4) [facility] TylerCOVID-19 (ID NOW RAPID TESTING)2020-08-21 09:13:00 Test Item Value Reference Range Interpretation Comments SARS-CoV-2 Rapid ID NOW Not Detected Not Detected (test code = 97934-0) JAMES (test code = JAMES) ID NOW COVID-19 Assay is an isothermal nucleic acid amplification test intended for the qualitative detection of nucleic acid from SARS-CoV-2 viral RNA in nasopharyngeal (CAPACITY PLANNING ENGINEER) specimens. It is used under Emergency Use [...] indicated. Lab Interpretation Normal (test code = 08536-6) [facility] TylerProthrombin Time / [id number] 08:59:00 Test Item Value Reference Range Interpretation Comments PROTIME PATIENT (test See_Comment H [Auto mated message] code = 5964-2) The system [employer] generated this result transmitted ref erence range: 10.1 - 1 2.6 Seconds. The reference range was not used to int erpret this result as normal/abnormal . INR (test code = 6301-6) Nor mal INR <1.1; Warfarin Therap eutic range 2.0 to 3. 0 or 2.5 to 3.5, dep ending upon the indica tions. Lab Interpretation (test Abnormal code = 59647-6) [facility] TyleraPTT2020-11-09 08:59:00 Test Item Value Reference Range Interpretation Comments APTT Patient (test code = See_Comment [ Automated message] 3173-2) The system ticketea generated this result transmitted ref erence range: 26 - 36 Seconds. The re ference range was not u sed to interpret this result as normal/abnor mal. Lab Interpretation (test Normal code = 86280-4) [facility] TylerBASI METABOLIC PANEL (NA, K, CL, CO2, GLUCOSE, BUN, CREATININE, CA)2020-08-21 08:52:00 Test Item Value Reference Range Interpretation Comments NA (test code = 136 mmol/L 135-145 1007505559) K (test code = 4.3 mmol/L 3.5-5 4605982205) CL (test code = 104 mmol/L 98-108 8500246030) CO2 TOTAL (test code = 24 mmol/L 23-31 8143944021) AGAP (test code = 2-16 1086356907) BUN (test code = 8 mg/dL 7-23 2050324464) GLUCOSE (test code = 308 mg/dL 70-110 H 8291793130) CREATININE (test code = 0.72 mg/dL 0.6-1.25 1089004570) CALCIUM (test code = 7.8 mg/dL 8.6-10.6 L 6952256382) eGFR Calculation mL/min/1.73m2 (Non-) (test code = 1453983127) eGFR Calculation mL/min/1.73m2 () (test code = 8456803003) JAMES (test code = JAMES) Association of [...] tests). Lab Interpretation Abnormal (test code = 78006-6) [facility] TylerHEPATIC FUNCTION PANEL (76364) (ALB,T.PRO,BILI T,BU/BC,ALT,AST,ALK PHOS)2020-08-21 08:52:00 Test Item Value Reference Range Interpretation Comments TOTAL BILI (test code = 0311073718) 0.8 mg/dL 0.1-1.1 BILI UNCON (test code = 9555943635) 0.3 mg/dL 0.1-1.1 BILI CONJ (test code = 2145219164) 0.0 mg/dL 0-0.3 T PROTEIN (test code = 4686303845) 5.7 g/dL 6.3-8.2 L ALBUMIN (test code = 6476085513) 2.7 g/dL 3.5-5 L ALK PHOS (test code = 8094291645) 245 U/L 34-122 H ALTv (test code = 1742-6) 37 U/L 5-50 AST(SGOT) (test code = 7174562285) 43 U/L 13-40 H Lab Interpretation (test code = Abnormal 14052-3) [facility]
--- NOTE | 2021-12-11 07:48 | RAD REPORT ---
EXAM DESCRIPTION: CT - Head Brain Wo Cont - 12/11/2021 7:37 am CLINICAL HISTORY: right sided weakness COMPARISON: HEAD BRAIN W O CONTRAST dated 10/29/2014 TECHNIQUE: All CT scans are performed using dose optimization technique as appropriate and may inclu de automated exposure control or mA/KV adjustment according to patient size. FINDINGS: Medial left frontal lobe hypoattenuation most likely representing a chronic infarct. Chron ic small vessel ischemic changes noted.No mass effect or midline shift. No acute intracranial hemorrh age. Trace left maxillary sinus thickening. The calvarium is intact. 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 Consider MRI for further cl arification.
[2021-12-11] MEDS ORDERED: HYDROCODONE/APAP 7.5/325 MG TAB ONE (07:51)
--- NOTE | 2021-12-11 08:57 | ER ---
Nurse's Notes [facility] Name: Kiel Ngo Age: 71 yrs Sex: Male : 1950 Arrival Date: 12/11/2021 Time: 07:13 Bed 14 Private MD: Diagnosis: Cerebral infarction, unspecified-chronic Presentation: 12/11 07:15 Chief complaint: EMS states: Chronic RLE pain, weaker RUE, Skin tear to right elbow eo2 sustained during EMS transport this morning. Coronavirus screen: Vaccine status: Patient reports being unvaccinated. Ebola Screen: Patient negative for fever greater than or equal to 101.5 degrees Fahrenheit, and additional compatible Ebola Virus Disease symptoms Patient denies exposure to infectious person. Patient denies travel to an Ebola-affected area in the 21 days before illness onset. Initial Sepsis Screen: Does the patient meet any 2 criteria? No. Patient's initial sepsis screen is negative. Does the patient have a suspected source of infection? No. Patient's initial sepsis screen is negative. Risk Assessment: Do you want to hurt yourself or someone else? Patient reports no desire to harm self or others. Onset of symptoms is unknown. 07:15 Method Of Arrival: EMS: [facility] eo2 07:15 Acuity: JOZEF 3 eo2 Triage Assessment: 07:19 General: Appears in no apparent distress. Behavior is cooperative. Pain: Complains of eo2 pain in right arm and right leg. Historical: - Allergies: 07:19 Demerol; eo2 07:19 metformin; eo2 07:19 Morphine; eo2 - PMHx: 07:19 Atrial fibrillation; chronic back pain; neuropathy; chronic right leg pain; eo2 - PSHx: 07:19 back sx; PANCREAS SX; R. Ankle SX; eo2 - Immunization history:: Adult Immunizations not up to date, Client reports having NOT received the Covid vaccine. - Social history:: Smoking status: Patient denies any tobacco usage or history of. Patient/guardian denies using alcohol, street drugs, The patient lives with family. - Family history:: not pertinent. Screenin:20 Abuse screen: Denies threats or abuse. Denies injuries from another. Nutritional eo2 screening: No deficits noted. Tuberculosis screening: No symptoms or risk factors identified. Fall Risk Fall in past 12 months (25 points). Assessment: 07:20 Neuro: Level of Consciousness is awake, alert, obeys commands, Oriented to person, eo2 place, time, situation, Reports weakness right arm and right leg. Cardiovascular: Denies chest pain, shortness of breath. Respiratory: Denies shortness of breath. Derm: Wound noted Other: skin tear to right elbow, skin breakdown to back and buttocks d/t limited mobility. Musculoskeletal: Circulation, motion, and sensation intact. Reports weakness in right leg and right arm Pain is 10 out of 10 on a pain scale. 09:35 Reassessment: Patient transported back home via [facility]. jg9 Vital Signs: 07:15 BP 162 / 78; Pulse 73; Resp 17; Temp 97.2; Pulse Ox 100% ; Weight 83.91 kg; Height 5 eo2 ft. 11 in. (180.34 cm); Pain 10/10; 08:00 BP 168 / 80; Pulse 71; Resp 20 S; Pulse Ox 100% on R/A; jg9 09:00 BP 151 / 66; Pulse 75; Resp 20 S; Pulse Ox 99% on R/A; jg9 07:15 Body Mass Index 25.80 (83.91 kg, 180.34 cm) eo2 ED Course: 07:13 Patient arrived in ED. iw 07:14 Tonja Kimball MD is Attending Physician. ma2 07:15 Cecilia Cosme, DIEGO is Primary Nurse. eo2 07:18 Triage completed. eo2 07:19 Arm band placed on. eo2 07:20 Patient has correct armband on for positive identification. Pulse ox on. NIBP on. Door eo2 closed. Noise minimized. Warm blanket given. 07:20 No provider procedures requiring assistance completed. Patient did not have IV access eo2 during this emergency room visit. 07:37 CT Head Brain wo Cont In Process Unspecified. EDMS 08:56 Pascual Nugent MD is Referral Physician. ma2 09:34 Awaiting transportation, Awaiting: Patient need ambulance to take him back home, jg9 working on transportation at this time. Administered Medications: 07:51 Drug: [place] (HYDROcodone-acetaminophen) (7.5 mg-325 mg) 1 tabs Route: PO; eo2 08:30 Follow up: Response: No adverse reaction; Pain is decreased jg9 09:17 Drug: Aspirin 81 mg Route: PO; jg9 09:34 Follow up: Response: No adverse reaction jg9 Outcome: 08:57 Discharge ordered by . jonathan 09:35 Discharged to home via ambulance. jg9 09:35 Condition: stable 09:35 Discharge instructions given to patient, Instructed on discharge instructions, follow up and referral plans. Demonstrated understanding of instructions, follow-up care, Prescriptions given X 1. 09:36 Patient left the ED. jg9 Signatures: Dispatcher [employer] Juanita Yee, RN RN Tonja Queen MD MD ma2 Gilmore, Jennifer, RN RN jg9 Cecilia Cosme RN RN eo2
--- NOTE | 2021-12-11 08:57 | EDPHYS ---
Physician Documentation [facility] Name: Kiel Ngo Age: 71 yrs Sex: Male : 1950 Arrival Date: 12/11/2021 Time: 07:13 Bed 14 Private MD: ED Physician Tonja Kimball HPI: 12/11 08:52 This 71 yrs old Male presents to ER via EMS with complaints of Right hand and leg pain, ma2 chronic . 08:52 Patient states he had chronic right leg pain he is out of his Dilaudid, sees a pain ma2 doctor, patient would like pain medication,. Historical: - Allergies: 07:19 Demerol; eo2 07:19 metformin; eo2 07:19 Morphine; eo2 - PMHx: 07:19 Atrial fibrillation; chronic back pain; neuropathy; chronic right leg pain; eo2 - PSHx: 07:19 back sx; PANCREAS SX; R. Ankle SX; eo2 - Immunization history:: Adult Immunizations not up to date, Client reports having NOT received the Covid vaccine. - Social history:: Smoking status: Patient denies any tobacco usage or history of. Patient/guardian denies using alcohol, street drugs, The patient lives with family. - Family history:: not pertinent. ROS: 08:52 Constitutional: Negative for fever, chills, and weight loss, Eyes: Negative for injury, ma2 pain, redness, and discharge. 08:52 All other systems are negative. Exam: 08:52 Constitutional: This is a well developed, well nourished patient who is awake, alert, ma2 and in no acute distress. Chest/axilla: Normal chest wall appearance and motion. Nontender with no deformity. No lesions are appreciated. Cardiovascular: Regular rate and rhythm with a normal S1 and S2. No gallops, murmurs, or rubs. Normal PMI, no JVD. No pulse deficits. Respiratory: Lungs have equal breath sounds bilaterally, clear to auscultation and percussion. No rales, rhonchi or wheezes noted. No increased work of breathing, no retractions or nasal flaring. Abdomen/GI: Soft, non-tender, with normal bowel sounds. No distension or tympany. No guarding or rebound. No evidence of tenderness throughout. Skin: Warm, dry with normal turgor. Normal color with no rashes, no lesions, and no evidence of cellulitis. MS/ Extremity: Pulses equal, no cyanosis. Neurovascular intact. Full, normal range of motion. Neuro: Awake and alert, GCS 15, oriented to person, place, time, and situation. Cranial nerves II-XII grossly intact. Motor strength is 4 out of 5 in right upper and lower extremity, motor strength 5/5 in all left extremities. Sensory grossly intact. Cerebellar exam normal. Normal gait. Vital Signs: 07:15 BP 162 / 78; Pulse 73; Resp 17; Temp 97.2; Pulse Ox 100% ; Weight 83.91 kg; Height 5 eo2 ft. 11 in. (180.34 cm); Pain 10/10; 08:00 BP 168 / 80; Pulse 71; Resp 20 S; Pulse Ox 100% on R/A; jg9 09:00 BP 151 / 66; Pulse 75; Resp 20 S; Pulse Ox 99% on R/A; jg9 07:15 Body Mass Index 25.80 (83.91 kg, 180.34 cm) eo2 MDM: 07:14 Patient medically screened. ma2 08:52 Differential diagnosis: contusion, abrasion, Chronic pain, patient also has 4 out of 5 ma2 strength on the right upper and lower extremity. When asked about this, patient states he had this for 1 week. CTh shows chronic stroke,. Patient does not know how he had a stroke in the past, when I reviewed prior H\T\P's in chart it is noted that he had documented weakness in prior hospitalization, given this finding on CT with finding this is unlikely an acute or subacute stroke patient needs to see a neurologist in 1 to 2 days, will start him on aspirin as well. 08:56 Data reviewed: vital signs, nurses notes. Counseling: I had a detailed discussion with ma2 the patient and/or guardian regarding: the historical points, exam findings, and any diagnostic results supporting the discharge/admit diagnosis, the presence of at least one elevated blood pressure reading (>120/80) during this emergency department visit, the need for outpatient follow up. Response to treatment: the patient's symptoms have markedly improved after treatment. 12/11 07:16 Order name: CT Head Brain wo Cont; Complete Time: 08:39 ma2 Administered Medications: 07:51 Drug: [place] (HYDROcodone-acetaminophen) (7.5 mg-325 mg) 1 tabs Route: PO; eo2 08:30 Follow up: Response: No adverse reaction; Pain is decreased jg9 09:17 Drug: Aspirin 81 mg Route: PO; jg9 09:34 Follow up: Response: No adverse reaction jg9 Disposition Summary: 12/11/21 08:57 Discharge Ordered Location: Home ma2 Condition: Stable ma2 Diagnosis - Cerebral infarction, unspecified - chronic ma2 Followup: ma2 - With: Pascual Nugent MD - When: Tomorrow - Reason: Continuance of care Discharge Instructions: - Discharge Summary Sheet ma2 - Stroke Prevention, [id number] ma2 Forms: - Medication Reconciliation Form ma2 - Thank You Letter ma2 - SBAR form bd - Antibiotic Education ma2 - Prescription Opioid Use ma2 Prescriptions: - aspirin 81 mg Oral tablet,chewable - chew 1 tablet by ORAL route once daily; 30 tablet; Refills: 0, Product ma2 Selection Permitted Signatures: Dispatcher [employer] EDTonja Mccrary MD MD ma2 Roxane Sanchez RN RN jg9 Cecilia Cosme RN RN eo2
[2021-12-11] MEDS ORDERED: ASPIRIN EC 81 MG TAB PO ONE (09:19)
[2021-12-11 09:45] VITALS: TEMP 97.2
[2021-12-11 09:48] VITALS: BP 151/66; O2SAT 99
== END 2021-12-11 09:36 | disposition home or self-care (01) ==
LOC: ER 07:10
DX: I63.9 Cerebral infarction, unspecified (principal); Z88.5 Allergy status to narcotic agent; Z88.8 Allergy status to other drugs, medicaments and biological substances
CPT/HCPCS: 70450; 99284

== ENCOUNTER 2021-12-12 02:38 | Emergency (ER) | payer OTHER ==
--- OUTSIDE RECORDS SUMMARY | 2021-12-12 02:45 | XMS REPORT | Continuity of Care Document ---
:1950 Author Organization [facility] t Address [address] [place] [address] Dr. [address] [place] [address] Care Team Providers Name Role Phone Edy [...] Expiration Date S ource MEDICARE PART A [id number] 2007 \\T\\ B 00:00:00 [employer] INDEMNITY [id number] 2016 00:00:00 MEDICARE PART A [id number] 2014 \\T\\ B - MEDICARE 00:00:00 INDEMNITY/TRADITIO [id number] NAL CHOICE - [employer] 00:00:00 Problems Condition [...] ents Source Name Type Date Date Clinician [place] [facility] Active Rash 2020- Univers ty to [...] vers NE INGREDI 3-16 ity of 00:00: [place] 00 [facility] Branch GLIMEPIR DRUG Active Hives Univers EFREN INGREDI 3-16 ity of 00:00: [place] 00 Medical Branch METFORMI DRUG Active ITCHING Univers N INGREDI 3-16 ity of 00:00: [place] 00 Medical Branch Social History Social Habit Start Date Stop Date Quantity Comments Source Exposure to Not sure [place] of SARS-CoV-2 [facility] (event) Branch History of Chews Tobacco University of tobacco use [facility] History SDOH 2020-11-17 2020-11-17 5 University o f Financial 00:00:00 00:00:00 [facility] History [facility] Food 2020-11-17 2020-11-17 1 Univers ity of Worry 00:00:00 00:00:00 [facility] History [facility] Food 2020-11-17 2020-11-17 1 Univers ity of Scarcity 00:00:00 00:00:00 [facility] History [facility] 2020-11-17 2020-11-17 1 University o f Transport Med 00:00:00 00:00:00 [facility] al Branch History [facility] 2020-11-17 2020-11-17 1 University o f Transport Non-Med 00:00:00 00:00:00 [facility] edical Branch Education 2020-11-16 2020-11-16 21 [place] of 00:00:00 00:00:00 [facility] Alcohol intake 2020-11-16 2020-11-16 Ex-drinker [place] of 00:00:00 00:00:00 (finding) [facility] Tobacco use and 2020-08-21 2020-08-21 Former user Universi ty of exposure 00:00:00 00:00:00 [facility] Tobacco Comment 2020-08-21 2020-08-21 quit 10 years Univer sity of 00:00:00 00:00:00 ago, started in [place] Med ical 2nd year of Branch college (~40 years) Alcohol Comment 2020-08-21 2020-08-21 Used to have 2-3 Uni versity of 00:00:00 00:00:00 six-packs of [place] Medica l beer daily x 20 Branch years, quit 2005 History [facility] 2020-08-21 2020-08-21 99 University o f Alcohol Frequency 00:00:00 00:00:00 [place] M edical Branch History SDMT 2020-08-21 2020-08-21 99 [place] o f Alcohol Std 00:00:00 00:00:00 [place] Medical Drinks Branch History SDMT 2020-08-21 2020-08-21 99 University o f Alcohol Binge 00:00:00 00:00:00 [place] Medic al Branch Sex [birth year] Universit y of 00:00:00 00:00:00 [place] [facility] [place] Smoking Status Start Date Stop Date Source Never smoker [facility] Branch Medications Ordered Filled Start [...] by ity of tablet 16:47: mouth at [place] 18 bedtime. Medical Branch HYDROmorpho Yes 4mg [...] 0845, Until Discontinu ed, Routine amLODIPine Yes [id number] 10mg Take 1 Univers 10 mg 3-07 tablet by ity of tablet 00:00: mouth [place] 00 daily. Medical Branch clotrimazol Yes [id number] Apply to Univers e 1 % 3-07 face/ears, ity of topical 00:00: armpits, [place] cream 00 pannus and Medical back/any Branch other rash twice a day fluocinonid 0 Yes [id number] Apply to Univers e 0.05 % 3-07 scalp ity of solution 00:00: twice a [place] 00 day Medical Branch triamcinolo 0 Yes [id number] Apply to Univers ne 3-07 back, ity of acetonide 00:00: armpits [place] 0.1 % cream 00 and other Med ical affected Branch areas twice daily, please mix with clotrimazo le hydrOXYzine 0 Yes [id number] 10mg Take 1 Univers 10 mg 3-07 tablet by ity of tablet 00:00: mouth 2 00 (two) Medical times Branch daily. amLODIPine Yes [id number] 10mg Take 1 Univers 10 mg 3-07 tablet by ity of tablet 00:00: mouth 00 daily. Medical Branch clotrimazol 0 Yes [id number] Apply to Univers e 1 % 3-07 face/ears, ity of topical 00:00: armpits, [place] cream 00 pannus and Medical back/any Branch other rash twice a day fluocinonid 0 Yes [id number] Apply to Univers e 0.05 % 3-07 scalp ity of solution 00:00: twice a day Medical Branch triamcinolo Yes [id number] Apply to Univers ne 3-07 back, ity of acetonide 00:00: armpits [place] 0.1 % cream 00 and other Med ical affected Branch areas twice daily, please mix with clotrimazo le hydrOXYzine Yes [id number] 10mg Take 1 Univers 10 mg 3-07 tablet by ity of tablet 00:00: mouth 2 (two) Medical times Branch daily. amLODIPine Yes [id number] 10mg Take 1 Univers 10 mg 3-07 tablet by ity of tablet 00:00: mouth 00 daily. Medical Branch clotrimazol 0 Yes [id number] Apply to Univers e 1 % 3-07 face/ears, ity of topical 00:00: armpits, [place] cream 00 pannus and Medical back/any Branch other rash twice a day fluocinonid 2020-0 Yes [id number] Apply to Univers e 0.05 % 3-07 scalp ity of solution 00:00: twice a [place] 00 day Medical Branch triamcinolo 2020-0 Yes [id number] Apply to Univers ne 3-07 back, ity of acetonide 00:00: armpits [place] 0.1 % cream 00 and other Med ical affected Branch areas twice daily, please mix with clotrimazo le hydrOXYzine Yes [id number] 10mg Take 1 Univers 10 mg 3-07 tablet by ity of tablet 00:00: mouth 2 [place] 00 (two) Medical times Branch daily. amLODIPine Yes [id number] 10mg Take 1 Univers 10 mg 3-07 tablet by ity of tablet 00:00: mouth [place] 00 daily. Medical Branch clotrimazol Yes [id number] Apply to Univers e 1 % 3-07 face/ears, ity of topical 00:00: armpits, [place] cream 00 pannus and Medical back/any Branch other rash twice a day fluocinonid Yes [id number] Apply to Univers e 0.05 % 12-17 scalp ity of solution 00:00: twice a [place] 00 day Medical Branch triamcinolo Yes [id number] Apply to Univers ne 3-07 back, ity of acetonide 00:00: armpits [place] 0.1 % cream 00 and other Med ical affected Branch areas twice daily, please mix with clotrimazo le hydrOXYzine Yes [id number] 10mg Take 1 Univers 10 mg 3-07 tablet by ity of tablet 00:00: mouth 2 [place] 00 (two) Medical times Branch daily. cephALEXin 2020-2020- No [id number] 500mg Take 1 Univers 500 mg -04 14- capsule by ity of capsule 00:00: 05:59 mouth [place] 00 :00 every 6 Medical (six) Branch hours for 3 days. cephALEXin 2020-0 2020- No [id number] 500mg Take 1 Univers 500 mg 3-04 14-11 capsule by ity of capsule 00:00: 05:59 mouth [place] 00 :00 every 6 Medical (six) Branch hours for 3 days. hydrOXYzine 2020-2020- No [id number] 10mg Take 1 Univers 10 mg 3-04 14-07 tablet by ity of tablet 00:00: 00:00 mouth 2 [place] 00 :00 (two) Medical times Branch daily. morpHINE Yes 4mg 4 mg, Slow Uni vers injection 4 - IV Push, ity of mg 22:40: Q6HPRN, [place] 02 Starting Medical 12/16/20 Branch at 1640, [...] IV [place] 500 mL 00 :00 Piggyback, [facility] ONCE, 1 Branch dose, Fri12/15/20 at 1000, STAT HYDROmorpho Yes 4mg 4 mg, Unive rs ne 12-15 Oral, BID, ity of (DILAUDID) 15:30: First dose [place] tablet 4 mg 00 (after Medica l last Branch modificati on) on Fri12/15/20 at 0930, Until Discontinu ed, Routine amLODIPine 2020- No [id number] 10mg Take 1 Univers 10 mg 12-15 tablet by ity of tablet 00:00: 00:00 mouth [place] 00 :00 daily. Medical Branch HYDROmorpho No 1mg 1 mg, Univ ers ne 12-14 Oral, ity of (DILAUDID) 17:35: 15:18 Q6HPRN, [place] tablet 1 mg 30 :06 Starting Medi [facility] 12/14/20 Branch at 1135, Until Fri12/15/20 at 0918, Routine, Pain (scale 7-10) hydrOXYzine Yes 10mg 10 mg, [facility] ers (ATARAX) 12-14 Oral, BID, ity o f tablet 10 17:30: First dose [place] mg 00 on [facility] 12/14/20 at Branch 1130, Until Discontinu ed, Routine lisinopriL Yes 5mg 5 mg, Univer s (PRINIVIL,Z 12-14 Oral, ity of ESTRIL) 17:30: DAILY, [place] tablet 5 mg 00 First dose Me dical on [facility] 12/14/20 at 1130, Until Discontinu ed, Routine triamcinolo 2020- No [id number] Apply to [facility] 12-14 back, ity of acetonide 00:00: 00:00 armpits [place] 0.1 % cream 00 :00 and other Med ical affected Branch areas twice daily, please mix with clotrimazo le clotrimazol 2020- No [id number] Apply to Univers e 1 % 12-14 face/ears, ity of topical 00:00: 00:00 armpits, [place] cream 00 :00 pannus and Medical back/any Branch other rash twice a day fluocinonid 2020- No [id number] Apply to Univers e 0.05 % 12-14 scalp ity of solution 00:00: 00:00 twice a [place] 00 :00 day Medical Branch hydrOXYzine 2020- No [id number] 10mg Take 1 Univers 10 mg 12-14 [...] IV Push, ity of (PF)) 10:07: Q6HPRN, [place] injection 4 28 Starting Medi jose c mg 12/13/20 Branch at 0407, Until Discontinu ed, Routine, Nausea and Vomiting (N/V) ondansetron 2020- No 4mg 4 mg, Slow Univers (ZOFRAN 12-13-03 IV Push, ity of (PF)) 04:55: 05:44 ONCE, 1 [place] injection 4 00 :00 dose, [facility] ical mg 12/12/20 at Branch 2300, Routine traMADoL 2020- No 50mg 50 mg, Univer s (ULTRAM) 3 03-03 Oral, ity of tablet 50 03:45: 03:34 ONCE, 1 [place] mg 00 :00 dose, [facility] 12/12/20 at Branch 2145, Routine insulin Yes 15U 15 Units, Unive rs glargine 12-12 Subcutaneo ity o f (LANTUS 15:00: us, DAILY, [place] U-100) 00 First dose Medical injection on [facility] 15 Units 12/12/20 at 0900, Until Discontinu ed hydrOXYzine 2020- No 10mg 10 mg, Uni vers (ATARAX) 12-12 03-02 Oral, ity of tablet 10 08:15: 07:33 ONCE, 1 [place] mg 00 :00 dose, [facility] 12/12/20 at Branch 0215, Routine mirtazapine Yes 7.5mg 7.5 mg, Un toi (REMERON) 3-02 Oral, QHS, ity of tablet 7.5 03:00: First dose [place] mg 00 on [facility] 12/11/20 at Branch 2100, Until Discontinu ed, Routine venlafaxine Yes 300mg 300 mg, Un toi XR (EFFEXOR 3-02 Oral, QHS, it y of XR) 24 hr 03:00: First dose [place] capsule 300 00 on [facility] Medica l mg 12/11/20 at Branch 2100, Until Discontinu ed, Routine fluocinonid Yes Topical, Un toi e (LIDEX) 3 BID, First ity of 0.05 % 02:00: dose on [place] solution 00 Fri12/11/20 Medic al at 2000, Branch Until Discontinu ed, Routine acetaminoph 2020- No 1{tbl} 1 tablet, Univers en-codeine 12-11 03-05 Oral, ity of (TYLENOL 23:23: 13:49 Q6HPRN, [place] #3) 300-30 43 :08 Starting Medic al mg tablet 1 Fri12/11/20 Br anch tablet at 1723, Until Fri12/15/20 at 0749, Routine, Pain (scale 4-6) enoxaparin Yes 40mg 40 mg, Unive rs (LOVENOX) 12-11 Subcutaneo ity of injection 23:00: us, DAILY, [place] 40 mg 00 First dose Medical on Fri [place] 12/11/20 at 1700, Until Discontinu ed, Routine [...] 5U 5 Units, [facility] [place] [facility] s lispro 12-11 Subcutaneo ity of (human) 18:00: us, TID [place] (HumaLOG 00 MEALS, Medical U-100) First dose Branch injection 5 on [facility] Units 12/11/20 at 1200, Until Discontinu ed Polyethylen Yes 17g 17 g, [facility] rs e Glycol 12-11 Oral, ity of 3350 17:47: I12HWRK, [place] (MIRALAX) 05 Starting Medica l powder 17 g 12/11/20 Br anch at 1147, Until Discontinu ed, Routine, Constipati on acetaminoph Yes 650mg 650 mg, Un toi en 12-11 Oral, ity of (TYLENOL) 16:51: Q6HPRN, [place] tablet 650 28 Starting Medic al mg [...]
Duration of therapy: 72 hours sennosides- Yes [id number] 1{tbl} Take 1 [facility] docusate 2-09 tablet by ity of sodium 00:00: mouth 2 [place] 8.6-50 mg 00 (two) Medical per tablet times Branch daily. hydrocortis Yes [id number] Apply to [facility] one 2.5 % 11-21 affected ity of cream 00:00: area(s) 2 [place] 00 (two) Medical times Branch daily. blood sugar Yes [id number] Use to [facility] diagnostic 2 check ity of (FREESTYLE 00:00: blood [place] LITE 00 glucose Medical STRIPS) 4-5 times Branch strip daily. Polyethylen Yes [id number] 17g Take 1 Univers e Glycol 2-09 Packet by ity of 3350 17 00:00: mouth [place] gram powder 00 every 24 Medi jose c (twenty-fo Branch ur) hours as needed for Constipati on. sennosides- Yes [id number] 1{tbl} Take 1 Univers docusate 2-09 tablet by ity of sodium 00:00: mouth 2 [place] 8.6-50 mg 00 (two) Medical per tablet times Branch daily. hydrocortis 2020-0 Yes [id number] Apply to Univers one 2.5 % 2-09 affected ity of cream 00:00: area(s) 2 [place] 00 (two) Medical times Branch daily. blood sugar 2020-0 Yes [id number] Use to Univers diagnostic 11-21 check ity of (FREESTYLE 00:00: blood [place] LITE 00 glucose Medical STRIPS) 4-5 times Branch strip daily. Polyethylen 2020-0 Yes [id number] 17g Take 1 Univers e Glycol 2-09 Packet by ity of 3350 17 00:00: mouth [place] gram powder 00 every 24 Medi jose c (twenty-fo Branch ur) hours as needed for Constipati on. sennosides- 2020-0 Yes [id number] 1{tbl} Take 1 Univers docusate 2-09 tablet by ity of sodium 00:00: mouth 2 [place] 8.6-50 mg 00 (two) Medical per tablet times Branch daily. hydrocortis 2020-0 Yes [id number] Apply to Univers one 2.5 % 2-09 affected ity of cream 00:00: area(s) 2 [place] 00 (two) Medical times Branch daily. blood sugar 2020-0 Yes [id number] Use to [facility] diagnostic 11-21 check ity of (FREESTYLE 00:00: blood [place] LITE 00 glucose Medical STRIPS) 4-5 times Branch strip daily. Polyethylen 2020-0 Yes [id number] 17g Take 1 Univers e Glycol 2-09 Packet by ity of 3350 17 00:00: mouth [place] gram powder 00 every 24 Medi jose c (twenty-fo Branch ur) hours as needed for Constipati on. sennosides- 2020-0 Yes [id number] 1{tbl} Take 1 Univers docusate 2-09 tablet by ity of sodium 00:00: mouth 2 [place] 8.6-50 mg 00 (two) Medical per tablet times Branch daily. hydrocortis 2020-0 Yes [id number] Apply to Univers one 2.5 % 2-09 affected ity of cream 00:00: area(s) 2 [place] 00 (two) Medical times Branch daily. blood sugar Yes [id number] Use to [facility] diagnostic 11-21 check ity of (FREESTYLE 00:00: blood [place] LITE 00 glucose Medical STRIPS) 4-5 times Branch strip daily. Polyethylen Yes [id number] 17g Take 1 Univers e Glycol 11-21 Packet by ity of 3350 17 00:00: mouth [place] gram powder 00 every 24 Medi jose c (twenty-fo Branch ur) hours as needed for Constipati on. Insulin 2020- No [id number] 15U inject 15 Univers Glargine 11-21 Units ity of (LANTUS 00:00: 05:59 under the [place] SOLOSTAR 00 :00 skin every Medic al U-100 morning Branch INSULIN) for 30 100 unit/mL days. (3 mL) injection venlafaxine 2020- No [id number] 150mg Take 1 Univers XR 150 mg 11-21 capsule by ity of 24 hr 00:00: 05:59 mouth 3 [place] capsule 00 :00 (three) Medical times Branch daily for 30 days. Insulin 2020- No [id number] 15U inject 15 Univers Glargine 11-21 Units ity of (LANTUS 00:00: 05:59 under the [employer] SOLOSTAR 00 :00 skin every Medic al U-100 morning Branch INSULIN) for 30 100 unit/mL days. (3 mL) injection venlafaxine 2020- No [id number] 150mg Take 1 Univers XR 150 mg 11-21 capsule by ity of 24 hr 00:00: 05:59 mouth 3 [place] capsule 00 :00 (three) Medical times Branch daily for 30 days. triamcinolo 2020- No [id number] Apply to [facility] ne 11-21 area(s) 2 ity of acetonide 00:00: 00:00 (two) [place] 0.1 % cream 00 :00 times Medical daily. Branch cephALEXin 2020- No [id number] 1000mg Take 2 Univers 500 mg 11-21 capsules ity of capsule 00:00: 00:00 by mouth 3 [place] 00 :00 (three) Medical times Branch daily. doxycycline 2020- No [id number] 100mg Take 1 Univers hyclate 100 11-21 capsule by i ty of mg capsule 00:00: 00:00 mouth [place] 00 :00 every 12 Medical (twelve) Branch hours. lactobacill 2020- No [id number] 1{tbl} Take 1 Univers us 11-21 tablet by ity of acidophilus 00:00: 00:00 mouth 2 [place] 25 million 00 :00 (two) Medical cell -100 times Branch mg captab daily. bisacodyL 2020- No [id number] 10mg Insert 1 Univers 10 mg 11-21 Suppositor ity of suppository 00:00: 00:00 y into [place] 00 :00 rectum at Medical bedtime as Branch needed for Constipati on. ALPRAZolam 2020- No [id number] .25mg Take 1 Univers (XANAX) 11-21 tablet by ity of 0.25 mg 00:00: 00:00 mouth 2 [place] tablet 00 :00 (two) Medical times Branch daily. hydrOXYzine 2020- No [id number] 20mg Take 2 Univers 10 mg 11-21 [...] Units ity of (LANTUS 01:13: under the [place] SOLOSTAR) 36 skin. Medical 100 unit/mL Branch [...] Units ity of (LANTUS 01:13: under the [place] SOLOSTOK) 36 skin. Medical 100 unit/mL Branch (3 mL) InPn INSULIN 2019-10 Yes 5U inject 5 Univer s ASPART 1-12 Units ity of (NOVOLOG 01:13: under the [facility] FLEXPEN [place]) 36 skin. Medical Branch ALPRAZolam 2019-10 Yes .25mg Take 0.25 U nivers (XANAX) 1-12 mg by ity of 0.25 mg 01:13: mouth 2 [place] tablet 36 (two) Medical times Branch daily. HYDROmorpho 2019-10 Yes 4mg Take 4 mg U nivers ne 4 mg 1-12 by mouth 2 ity of tablet 01:13: (two) [place] 36 times Medical daily. Branch HYDROMORPHO 2019-10 [...] Units ity of (LANTUS 01:13: under the [place] SOLOSTOK) 36 skin. Medical 100 unit/mL Branch (3 mL) In INSULIN 2019- Yes 5U inject 5 Univer s ASPART 1-12 Units ity of (NOVOLOG 01:13: under the [facility] FLEXPEN [place]) 36 skin. Medical Branch ALPRAZolam [...] Units ity of (LANTUS 01:13: under the [facility]) 36 skin. Medical 100 unit/mL Branch (3 mL) In INSULIN 2019- Yes 5U inject 5 Univer s ASPART 1-12 Units ity of (NOVOLOG 01:13: under the [facility] FLEXPEN [place]) 36 skin. Medical Branch ALPRAZolam 2019- Yes [...] Units ity of (LANTUS 01:13: under the [place] SOLOSTAR) 36 skin. Medical 100 unit/mL Branch (3 mL) InPn INSULIN 2019-10 Yes 5U inject 5 Univer s ASPART 1-12 Units ity of (NOVOLOG 01:13: under the [facility] s FLEXPEN [place]) 36 skin. Medical Branch [...] Units ity of (LANTUS 01:13: under the [place] SOLOSTAR) 36 skin. Medical 100 unit/mL Branch [...] 34 :00 Medical Branch hydrocortis 2019- Yes [id number] Apply to Univers one 2.5 % 1-11 affected ity of cream 00:00: area(s) 2 [place] (two) Medical times Branch daily. hydrOXYzine 2019-10 Yes [id number] 20mg Take 2 Univers 10 mg 1-11 tablets by ity of tablet 00:00: mouth [place] 00 every 8 Medical (eight) Branch hours as needed for Itching or Anxiety. Polyethylen 2019-10 Yes [id number] 17g Take 1 Univers e Glycol 1-11 Packet by ity of 3350 17 00:00: mouth [place] gram powder 00 every 24 Medi jose c (twenty-fo Branch ur) hours as needed for Constipati on. hydrocortis 2019-10 Yes [id number] Apply to Univers one 2.5 % 1-11 affected ity of cream 00:00: area(s) 2 [place] (two) Medical times Branch daily. hydrOXYzine 2019- Yes [id number] 20mg Take 2 Univers 10 mg 1-11 tablets by ity of tablet 00:00: mouth [place] 00 every 8 Medical (eight) Branch hours as needed for Itching or Anxiety. Polyethylen 2019- Yes [id number] 17g Take 1 Univers e Glycol 1-11 Packet by ity of 3350 17 00:00: mouth [place] gram powder 00 every 24 Medi jose c (twenty-fo Branch ur) hours as needed for Constipati on. hydrocortis 2019- Yes [id number] Apply to Univers one 2.5 % 1-11 affected ity of cream 00:00: area(s) 2 [place] 00 (two) Medical times Branch daily. hydrOXYzine 2019- Yes [id number] 20mg Take 2 Univers 10 mg 1-11 tablets by ity of tablet 00:00: mouth [place] 00 every 8 Medical (eight) Branch hours as needed for Itching or Anxiety. Polyethylen 2020- Yes [id number] 17g Take 1 Univers e Glycol 1-11 Packet by ity of 3350 17 00:00: mouth [place] gram powder 00 every 24 Medi jose c (twenty-fo Branch ur) hours as needed for Constipati on. hydrocortis 2019- Yes [id number] Apply to Univers one 2.5 % 1-11 affected ity of cream 00:00: area(s) 2 [place] 00 (two) Medical times Branch daily. hydrOXYzine 2019- Yes [id number] 20mg Take 2 Univers 10 mg 1-11 tablets by ity of tablet 00:00: mouth [place] 00 every 8 Medical (eight) Branch hours as needed for Itching or Anxiety. Polyethylen 2019- Yes [id number] 17g Take 1 Univers e Glycol 1-11 Packet by ity of 3350 17 00:00: mouth [place] gram powder 00 every 24 Medi jose c (twenty-fo Branch ur) hours as needed for Constipati on. hydrocortis 2019- Yes [id number] Apply to Univers one 2.5 % 1-11 affected ity of cream 00:00: area(s) 2 [place] 00 (two) Medical times Branch daily. hydrOXYzine 2019- Yes [id number] 20mg Take 2 Univers 10 mg 1-11 tablets by ity of tablet 00:00: mouth [place] 00 every 8 Medical (eight) Branch hours as needed for Itching or Anxiety. Polyethylen 2019- Yes [id number] 17g Take 1 Univers e Glycol 1-11 Packet by ity of 3350 17 00:00: mouth [place] gram powder 00 every 24 Medi jose c (twenty-fo Branch ur) hours as needed for Constipati on. hydrocortis 2019- Yes [id number] Apply to Univers one 2.5 % 1-11 affected ity of cream 00:00: area(s) 2 [place] 00 (two) Medical times Branch daily. hydrOXYzine 2019- Yes [id number] 20mg Take 2 Univers 10 mg 1-11 tablets by ity of tablet 00:00: mouth [place] 00 every 8 Medical (eight) Branch hours as needed for Itching or Anxiety. Polyethylen 2020- Yes [id number] 17g Take 1 Univers e Glycol 1-11 Packet by ity of 3350 17 00:00: mouth [place] gram powder 00 every 24 Medi jose c (twenty-fo Branch ur) hours as needed for Constipati on. hydrocortis 2019-10 Yes [id number] Apply to [facility] one 2.5 % 1-11 affected ity of cream 00:00: area(s) 2 [place] 00 (two) Medical times Branch daily. hydrOXYzine 2019-10 Yes [id number] 20mg Take 2 Univers 10 mg 1-11 tablets by ity of tablet 00:00: mouth [place] 00 every 8 Medical (eight) Branch hours as needed for Itching or Anxiety. Polyethylen 2019-10 Yes [id number] 17g Take 1 Univers e Glycol 1-11 Packet by ity of 3350 17 00:00: mouth [place] gram powder 00 every 24 Medi jose c (twenty-fo Branch ur) hours as needed for Constipati on. triamcinolo 2019-10 2020- No [id number] Apply to [facility] 10-23 area(s) 2 ity of acetonide 00:00: 05:59 (two) [place] 0.1 % cream 00 :00 times Medical daily for Branch 14 days. triamcinolo 2019-10 2020- No [id number] Apply to [facility] 10-23 area(s) 2 ity of acetonide 00:00: 05:59 (two) [place] 0.1 % cream 00 :00 times Medical daily for Branch 14 days. triamcinolo 2019-10 2020- No [id number] Apply to [facility] 10-23 area(s) 2 ity of acetonide [...] Areas), Medical BID, First Branch dose on [facility] 08/21/20 at 2000, Until Discontinu ed, Routine triamcinolo 2019- Yes Topical, Un toi ne 1-10 BID, First ity of acetonide 02:00: dose on [place] (TRIDERM) 00 [facility] Medical 0.1 % cream 08/21/20 at Br anch 2000, Until Discontinu ed, Routine hydrOXYzine 2019-10 Yes 20mg 20 mg, Univ ers (ATARAX) 09 Oral, ity of tablet 20 17:39: Q8HPRN, [place] mg 12 Starting Medical [facility] Branch 08/21/20 at 1139, Until Discontinu ed, Routine, Itching, Anxiety sennosides- 2019-10 Yes 1{tbl} 1 tablet, Univers docusate 10-21 Oral, ity of sodium 15:00: DAILY, [place] (SENOKOT-S) 00 First dose Me dical 8.6-50 mg on [facility] Branch per tablet 08/21/20 at 1 tablet 0900, Until Discontinu ed, Routine hydrocortis 2019-10 2020- No Topical Un toi one 1 % 10-21 (Apply To ity of cream 15:00: 22:54 Affected [place] 00 :48 Areas), Medical DAILY, Branch First dose on Fri08/21/20 at 0900, Until Discontinu ed, Routine venlafaxine 2019-10 Yes 150mg 150 mg, Un toi XR (EFFEXOR 09 Oral, TID, it y of XR) 24 hr 14:00: First dose [place] capsule 150 00 on [facility] Medica l mg 08/21/20 at Branch 0800, Until Discontinu ed, Routine heparin 2019- Yes 5000U 5,000 Univers (porcine) -09 Units, ity of injection 14:00: Subcutaneo [place] 5,000 Units 00 us, Q12H, Med ical First dose Branch on [facility] 08/21/20 at 0800, Until Discontinu ed, Routine diphenhydrA 2019-10 2020- No 25mg 25 mg, Uni vers MINE 10-21 Oral, ity of (BENADRYL) 12:56: 17:39 Q8HPRN, [place] tablet 25 59 :43 Starting Medica l mg [facility] 08/21/20 at 0656, Until [facility] 08/21/20 at 1139, Routine, Itching, Mild Rash, Congestion /Allergies , alternate with hydroxyzin e hydrOXYzine 2019-10- No 10mg 10 mg, Uni vers (ATARAX) 10-21 Oral, ity of tablet 10 10:20: 12:57 Q6HPRN, [place] mg 22 :12 Starting [facility] Center 08/21/20 at 0420, Until [facility] 08/21/20 at 0657, Routine, Itching, Anxiety Sliding 2019-10 Yes Subcutaneo Univ ers Scale 09 us, Q4H, ity of Insulin - 10:00: [place] dose [place] Aspart 00 (after Medical (NOVOLOG) + last Branch Fsbg modificati Testing on) on [facility] 08/21/20 at 0400, Until Discontinu ed, Routine lidocaine 5 2019-10- No Topical, U nivers % ointment 10-21 ONCE, 1 ity o f 09:30: 09:14 dose, [facility] 00 :00 08/21/20 at [facility] 0330, Branch Routine Polyethylen 2019-10 Yes 17g 17 g, [facility] rs e Glycol 10-21 Oral, ity of 3350 08:29: [id number], [place] (MIRALAX) 09 Starting Medica l powder 17 g [facility] 08/21/20 at 0229, Until Discontinu ed, Routine, Constipati on lanolin 2019-10 Yes Topical, Univer s alcohol-mo- 10-21 PRN, ity of w.pet-ceres 08:26: [place] (EUCERIN) 30 [facility] cream 08/21/20 at Branch 0226, Until Discontinu ed, Routine, Dermatitis /Rash ALPRAZolam 2019-10 Yes .25mg 0.25 mg, Un to[place] (XANAX) 10-21 Oral, ity of tablet 0.25 08:25: BIDPRN, Jeff as mg 41 Starting [facility] 08/21/20 at 0225, Until [...] (scale 1-3) sotalol 2019-10- No [facility] (BETAPACE) 10-21 mouth ity of 240 mg 07:43: 00:00 every 12 [place] tablet 30 :00 (twelve) Medical hours. Branch blood sugar Yes Use to [employer] ers diagnostic 4-25 check ity of (FREESTYLE 00:00: blood [place] LITE 00 glucose Medical STRIPS) 4-5 times Branch strip daily. blood sugar Yes Use to [employer] ers diagnostic -25 check ity of (FREESTYLE 00:00: blood [place] LITE 00 glucose Medical STRIPS) 4-5 times Branch strip daily. blood sugar Yes Use to [employer] ers diagnostic -25 check ity of (FREESTYLE 00:00: blood [place] LITE 00 glucose Medical STRIPS) 4-5 times Branch strip daily. blood sugar Yes Use to [employer] ers diagnostic -25 check ity of (FREESTYLE 00:00: blood [place] LITE 00 glucose Medical STRIPS) 4-5 times Branch strip daily. blood sugar Yes Use to [employer] ers diagnostic -25 check ity of (FREESTYLE 00:00: blood [place] LITE 00 glucose Medical STRIPS) 4-5 times Branch strip daily. blood sugar Yes Use to [facility] ers diagnostic 4-25 check ity [...] 13:00:00 148 mm[Hg] Univer sity of pressure [place] [facility] Diastolic blood 2021-08-22 13:00:00 84 mm[Hg] Unive rsity of pressure [facility] Heart rate 2021-08-22 13:00:00 103 /min [facility] Respiratory rate 2021-08-22 13:00:00 18 /min Univ ersity of [facility] Oxygen saturation in 2021-08-22 13:00:00 95 /min University of Arterial blood by [facility] Pulse oximetry Branch Body temperature 2021-08-22 12:22:00 36.72 [place] [facility] ersity of [facility] Branch Systolic blood 2020-12-17 18:35:00 139 mm[Hg] Univer sity of pressure [place] [facility] Diastolic blood 2020-12-17 18:35:00 87 mm[Hg] Unive rsity of pressure [place] [facility] [place] Heart rate 2020-12-17 18:35:00 110 /min [facility] Body temperature 2020-12-17 18:35:00 37.72 [place] [facility] ersity of [place] [facility] Respiratory rate 2020-12-17 18:35:00 18 /min Univ ersity of [place] [facility] Oxygen saturation in 2020-12-17 18:35:00 93 /min University of Arterial blood by [facility] Pulse oximetry Branch Body height 2020-12-12 08:21:00 180.3 cm [facility] Body weight 2020-12-12 08:21:00 103.42 kg [facility] BMI 2020-12-12 08:21:00 31.80 kg/m2 [facility] Systolic blood 2020-12-17 18:35:00 139 mm[Hg] Univer sity of pressure [place] [facility] Diastolic blood 2020-12-17 18:35:00 87 mm[Hg] Unive rsity of pressure [place] [facility] Heart rate 2020-12-17 18:35:00 110 /min Universi ty of [place] [facility] [place] Body temperature 2020-12-17 18:35:00 37.72 [place] Univ ersity of [place] [facility] Respiratory rate 2020-12-17 18:35:00 18 /min Univ ersity of [place] [facility] Oxygen saturation in 2020-12-17 18:35:00 93 /min University of Arterial blood by [place] Elevaate jose c Pulse oximetry Branch Body height 2020-12-12 08:21:00 180.3 cm Universi ty of [place] [facility] [place] Body weight 2020-12-12 08:21:00 103.42 kg Universi ty of [facility] BMI 2020-12-12 08:21:00 31.80 kg/m2 Universi ty [facility] [place] [facility] Systolic blood 2020-08-23 19:27:00 140 mm[Hg] Univer sity of pressure [place] [facility] Diastolic blood 2020-08-23 19:27:00 79 mm[Hg] Unive rsity of pressure [place] [facility] Heart rate 2020-08-23 19:27:00 99 /min Universi ty of [facility] Body temperature 2020-08-23 19:27:00 36 [place] Univ ersity of [place] [facility] Respiratory rate 2020-08-23 19:27:00 18 /min Univ ersity of [place] [facility] Oxygen saturation in 2020-08-23 19:27:00 93 /min University of Arterial blood by [place] Elevaate jose c Pulse oximetry Branch Body weight 2020-08-21 07:20:00 104.962 kg Universi ty [facility] [place] [facility] BMI 2020-08-21 07:20:00 32.27 kg/m2 Universi ty [facility] [place] [facility] Systolic blood 2020-08-23 19:27:00 140 mm[Hg] Univer sity of pressure [place] [facility] Diastolic blood 2020-08-23 19:27:00 79 mm[Hg] Unive rsity of pressure [place] [facility] Heart rate 2020-08-23 19:27:00 99 /min Universi ty [facility] [place] [facility] Body temperature 2020-08-23 19:27:00 36 [place] [facility] Respiratory rate 2020-08-23 19:27:00 18 /min [facility] Oxygen saturation in 2020-08-23 19:27:00 93 /min [facility] Arterial blood by [facility] Pulse oximetry [place] Body weight 2020-08-21 07:20:00 104.962 kg [facility] BMI 2020-08-21 07:20:00 32.27 kg/m2 [facility] Procedures Procedure Date / Time Performing Clinician Source Performed POCT GLUCOSE (AUTOMATED) 2020-12-17 15:42:00 Harrison[facility]ABOLIC PANEL 2020-12-17 10:45:00 Paul Bean [facility] (NA, K, CL, CO2, GLUCOSE, [facility] Medica l Branch BUN, CREATININE, CA) CBC WITH DIFF 2020-12-17 10:45:00 Paul Bean [facility] POCT GLUCOSE (AUTOMATED) 2020-12-17 02:36:00 Harrison, Premal G Uni [facility] XR TIBIA FIBULA 2 VW LEFT 2020-12-16 23:38:00 Paul Bean [facility] POCT GLUCOSE (AUTOMATED) 2020-12-16 23:20:00 Harrison, Premal [facility] PO[facility] GLUCOSE (AUTOMATED) 2020-12-16 20:10:00 Harrison, Premal [facility] POCT GLUCOSE (AUTOMATED) 2020-12-16 14:43:00 Harrison, Premal [facility] BASIC METABOLIC PANEL 2020-12-16 13:51:00 Paul Bean [facility] (NA, K, CL, CO2, GLUCOSE, [place] [facility] BUN, CREATININE, CA) CBC WITH DIFF 2020-12-16 13:51:00 Paul Bean [facility] POCT GLUCOSE (AUTOMATED) 2020-12-16 04:00:00 Harrison, Premal [facility] POCT GLUCOSE (AUTOMATED) 2020-12-16 00:14:00 Harrison, Premal G Uni versity of [facility] CT CHEST PULMONARY 2020-12-15 22:29:38 Paul Bean [facility] ANGIOGRAM [facility] POCT GLUCOSE (AUTOMATED) 2020-12-15 19:26:00 Harrison, Premal G Uni versity of [facility] POCT GLUCOSE (AUTOMATED) 2020-12-15 15:13:00 Harrison, Premal G Uni versity of [facility] HB ECG ROUTINE & RHYTHM 2020-12-15 14:25:[address] [facility] Branch MAGNESIUM 2020-12-15 12:01:00 Paul Bean Sivakumar [facility] BASIC METABOLIC PANEL 2020-12-15 12:01:00 Paul Bean [facility] (NA, K, CL, CO2, GLUCOSE, [place] [facility] BUN, CREATININE, CA) CBC WITH DIFF 2020-12-15 12:01:00 Paul Bean Sivakumar [facility] POCT GLUCOSE (AUTOMATED) 2020-12-15 03:57:00 Harrison, Premal G Uni versity of [facility] POCT GLUCOSE (AUTOMATED) 2020-12-14 23:31:00 Harrison, Premal G Uni versity of [facility] POCT GLUCOSE (AUTOMATED) 2020-12-14 19:08:00 Harrison, Premal G Uni versity of [facility] POCT GLUCOSE (AUTOMATED) 2020-12-14 15:11:00 Harrison, Premal G Uni versity of [facility] POCT GLUCOSE (AUTOMATED) 2020-12-14 02:36:00 Harrison, Premal G Uni versity of [facility] POCT GLUCOSE (AUTOMATED) 2020-12-13 23:32:00 Harrison, Premal G Uni versity of [facility] POCT GLUCOSE (AUTOMATED) 2020-12-13 18:08:00 Harrison, Premal G Uni versity of [facility] BASIC METABOLIC PANEL 2020-12-13 15:39:00 Paul Bean [facility] (NA, K, CL, CO2, GLUCOSE, [place] [facility] BUN, CREATININE, CA) CBC WITH DIFF 2020-12-13 15:39:00 Paul Bean Sivakumar [facility] POCT GLUCOSE (AUTOMATED) 2020-12-13 14:06:00 Harrison, Premal [facility] PO[facility] GLUCOSE (AUTOMATED) 2020-12-13 03:07:00 Harrison, Premal [facility] POCT GLUCOSE (AUTOMATED) 2020-12-12 23:52:00 Harrison, [facility] POCT GLUCOSE (AUTOMATED) 2020-12-12 20:28:00 Harrison, Premal [facility] PO[facility] GLUCOSE (AUTOMATED) 2020-12-12 19:14:00 Harrison, Premal [facility] POCT GLUCOSE (AUTOMATED) 2020-12-12 14:33:00 Harrison, Premal [facility] MAG[facility]ESIUM 2020-12-12 08:58:00 Paul Bean Sivakumar [facility] BASIC METABOLIC PANEL 2020-12-12 08:58:00 Paul Bean [facility] (NA, K, CL, CO2, GLUCOSE, [place] [facility] BUN, CREATININE, CA) CBC WITH DIFF 2020-12-12 08:58:00 Paul Bean Sivakumar [facility] US ABDOMEN LIMITED 2020-12-12 06:32:26 [facility] POCT GLUCOSE (AUTOMATED) 2020-12-12 03:40:00 Harrison, Premal G Uni [facility] POCT GLUCOSE (AUTOMATED) 2020-12-12 00:06:00 Harrison, Premal G Uni [facility] XR HIPS 3 VW LEFT 2020-12-11 20:20:00 Darnell Beanaham Sivakumar [facility] HB ECG ROUTINE & RHYTHM 2020-12-11 20:04:06 Cailin Romo [facility] VITAMIN B6, PLASMA 2020-12-11 19:17:00 [facility] POCT GLUCOSE (AUTOMATED) 2020-12-11 19:06:00 Rene Harrison [facility] CREATINE KINASE 2020-12-11 18:22:00 Clarisse Hannon [facility] VITAMIN B12, LEVEL 2020-12-11 18:22:00 Paul Bean [facility] FOLATE 2020-12-11 18:22:00 Vikas [facility] THYROID STIMULATING 2020-12-11 18:22:00 Cailin Romo [facility] HORMONE [facility] PROCALCITONIN 2020-12-11 18:22:00 Vikas [facility] VITAMIN B1 (THIAMINE), 2020-12-11 18:22:00 Paul Bean Sivakumar [facility] WHOLE BLOOD [facility] CT HEAD WO CONTRAST 2020-12-11 14:07:35 Sweetie Stout [facility] URINALYSIS 2020-12-11 13:44:00 Singer [facility] URINE CULTURE 2020-12-11 13:44:00 [facility] COVID-19 (ID NOW RAPID 2020-12-11 12:31:00 Paco Lacey [facility] TESTING) [facility] LAB ONLY COVID 2020-12-11 12:31:00 Singer [facility] XR CHEST 1 VW 2020-12-11 12:07:24 Singer [facility] BLOOD CULTURE SCREEN 2020-12-11 12:02:00 Paco Lacey [facility] MAGNESIUM 2020-12-11 12:02:00 Paul Bean Sivakumar [facility] FERRITIN SERUM 2020-12-11 12:02:00 Darnell Beanaham Sivakumar [facility] COMP. METABOLIC PANEL 2020-12-11 12:02:00 Paco Lacey [facility] ([id number]) Medical Branch CBC WITH DIFF 2020-12-11 12:02:00 Singer [facility] LACTIC ACID WHOLE BLOOD 2020-12-11 12:02:00 Paco Lacey [facility] BLOOD CULTURE SCREEN 2020-12-11 11:42:00 Paco Lacey [facility] EMERGENCY SERVICES 2020-12-11 06:01:00 Doctor Tabitha [facility] AGREEMENTS AND [place] [facility] Branch AUTHORIZATIONS HOSPITAL ADMISSION 2020-12-11 06:01:00 Doctor Tabitha [facility] Name Medical [facility] HEALTH - OTHER 2020-11-11 06:01:00 Doctor Tabitha [facility] [place] Medical [facility] HEALTH - OTHER 2020-10-30 06:01:00 Doctor Tabitha [facility] Name Medical [place] EXTERNAL PROVIDER RECORDS 2020-09-01 06:01:00 Doctor Tabitha [facility] Name [facility] POCT GLUCOSE (AUTOMATED) 2020-08-23 18:09:00 Kelly Washington [facility] POCT GLUCOSE (AUTOMATED) 2020-08-23 14:14:00 Kelly Washington [facility] MAGNESIUM 2020-08-23 11:18:00 [facility] BASIC METABOLIC PANEL 2020-08-23 11:18:00 [facility] (NA, K, CL, CO2, GLUCOSE, Medica l Branch BUN, CREATININE, CA) CBC WITH DIFF 2020-08-23 11:18:00 [facility] POCT GLUCOSE (AUTOMATED) 2020-08-23 10:21:00 [facility] PO[facility]SE (AUTOMATED) 2020-08-23 05:55:00 Kelly Washington [facility] POCT GLUCOSE (AUTOMATED) 2020-08-23 03:00:00 Kelly Washington [facility] POCT GLUCOSE (AUTOMATED) 2020-08-22 23:38:00 Kelly Washington [facility] POCT GLUCOSE (AUTOMATED) 2020-08-22 19:04:00 Kelly Washington [facility] POCT GLUCOSE (AUTOMATED) 2020-08-22 13:49:00 Kelly Washington [facility] MAGNESIUM 2020-08-22 10:10:00 [facility] 2020-08-22 10:10:00 Jill Aguila [facility] ([id number]) (ALB,T.PRO,BILI Medical Branch T,BU/BC,ALT,AST,ALK PHOS) BASIC METABOLIC PANEL 2020-08-22 10:10:00 [place], [facility] (NA, K, CL, CO2, GLUCOSE, Medica l Branch BUN, CREATININE, CA) LIPID PANEL ([id number])(TOTAL 2020-08-22 10:10:00 [place], [facility] TRIGLYCERIDES, HDL) CBC WITH DIFF 2020-08-22 10:10:00 [facility] POCT GLUCOSE (AUTOMATED) 2020-08-22 10:10:00 [...] Health Center ETHANOL 2020-08-21 12:35:00 Jos Quiroz [facility] ACTIVATED PARTIAL 2020-08-21 12:35:00 Padmini [facility] THRMPLAS CIH [facility] GALV ONLY - SYPHILIS 2020-08-21 12:35:00 Padmini Kelly [facility] IGG/IGM [facility] LACTATE DEHYDROGENASE 2020-08-21 10:09:00 Ramya, [facility] GALV/CLC ONLY - URINE 2020-08-21 10:09:00 Jos Quiroz [facility] DRUG (IMMUNOASSAY) - 4 ER Medica l Branch PANEL URINALYSIS 2020-08-21 10:09:00 Ramya, [facility] URINE CULTURE 2020-08-21 10:09:00 Ramya, [facility] PROCALCITONIN 2020-08-21 10:09:00 [place], [facility] POCT GLUCOSE (AUTOMATED) 2020-08-21 09:41:00 Kelly Washington [facility] PROTHROMBIN TIME / INR 2020-08-21 08:32:00 Ramya, [facility] ACTIVATED PARTIAL 2020-08-21 08:32:00 Ramya, [facility] THRMPLAS [facility] C-REACTIVE PROTEIN 2020-08-21 08:31:00 [place], [facility] HEPATIC FUNCTION PANEL 2020-08-21 08:31:00 [place], [facility] ([id number]) (ALB,T.PRO,BILI [facility] Branch T,BU/BC,ALT,AST,ALK PHOS) BASIC METABOLIC PANEL 2020-08-21 08:31:00 Ramya, [facility] (NA, K, CL, CO2, [facility] [place] BUN, CREATININE, CA) SEDIMENTATION RATE 2020-08-21 08:31:00 [place], [facility] CBC WITH DIFF 2020-08-21 08:31:00 Ramya, [facility] GLYCOSYLATED HEMOGLOBIN 2020-08-21 08:31:00 [place], [facility] (A1C) [facility] HIV 1/2 AG-AB WITH REFLEX 2020-08-21 08:31:00 [facility] (ID NOW RAPID 2020-08-21 08:20:00 Ramya, [facility] TESTING) Medical Branch LAB ONLY COVID 2020-08-21 08:20:00 Ramya, [facility] o f [facility] Encounters Start End Encounter Admission Attending Care Care Encounter Source Date/Time Date/Time Type Type Clinicians Facility Department ID 2020-08-21 Inpatient Shayy WASHINGTON [facility] KVNG [id number] Univers 01:07:00 KELLY cantu [facility] 2021-08-22 2021-08-22 Emergency X [facility] ERT [id number] Univers 06:21:00 08:02:00 SWEETIE cantu [facility] 2021-08-22 2021-08-22 Emergency [facility] [id number] Univers 06:21:00 08:02:00 Sweetie OREN [id number] i ty of [place] [id number] [facility] 084 Branch 2021-08-09 2021-08-09 Outpatient ZAKI, [facility] [id number] [facility] 10:27:03 10:27:03 ADRIANA lopez of Medicin e 2020-12-28 2020-12-28 Telephone [facility] 1.2.840.114 [id number] 00:00:00 00:00:00 Calvin H PRIMARY [id number] CARE 4.2.7.2.686 PAVILLION [id number] 220 2020-12-28 2020-12-28 Telephone [facility] 1.2.840.114 [id number] Univers 00:00:00 00:00:00 Calvin H PRIMARY [id number] it y of C[place].7.2.686 [place] [facility] [id number] Ga dical 220 Branch 2020-12-19 2020-12-19 Transition Tuan Peters 1.2.840.114 [id number] 00:00:00 00:00:00 of Care Ruchi Braswell [id number] [place] 4.2.7.2.686 [id number] 2020-12-19 2020-12-19 Transition Tuan Peters 1.2.840.114 [id number] Univers 00:00:00 00:00:00 of Care Ruchi Braswell [id number] it y [place]2.[place] [id number] [facility] 403 Branch 2020-12-11 2020-12-17 [facility] Paco Lacey 1.2.840.1 [id number] 05:11:00 16:00:00 Encounter Rene Harrisony [id number] [facility] [id number] [id number] [facility] 2020-12-11 2020-12-17 [facility] 1.2.840.1 [id number] [facility] 05:11:00 16:00:00 Encounter Rene Harrison [id number] ity of [facility] 4.2.7.2.686 [place] [id number] [facility] 096 [place] 2020-12-11 2020-12-11 Emergency X [facility] [id number] Univers 05:11:00 05:11:00 [facility] 2020-11-16 2020-11-16 Emergency X [facility] ERT [id number] Univers 09:31:00 09:31:00 [facility] 2020-11-11 2020-11-11 Orders Doctor BASILIA 1.2.840.114 [id number] 00:00:00 00:00:00 Only Unassigned, NATTY [id number] [place] [facility] 4.2.7.2.686 [id number] 2020-11-11 2020-11-11 Orders Doctor BASILIA 1.2.840.114 [id number] Univers 00:00:00 00:00:00 Only Unassigned, NATTY [id number] ity of [place] [facility] 4.2.7.2.686 Jeff as [id number] [facility] 009 [place] 2020-11-07 2020-11-07 Telephone Wilder [facility] [id number] 00:00:00 00:00:00 Angi Bosch [place] [id number] [place] 4.2.7.2.686 Professio [id number] [address] 2020-11-07 2020-11-07 Telephone Hdz [facility] [id number] [facility] 00:00:00 00:00:00 Sendil Danitza [place] [id number] ity of [place] 4[place]7.2.[place] Profess[place] [id number] [address] 2020-10-30 2020-10-30 Orders Doctor BASILIA 1.2.840.114 [id number] 00:00:00 00:00:00 Only Unassigned, NATTY 350.1.13.10 [place] [facility] 4.2.7.2.686 [id number] [facility] 2020-10-30 2020-10-30 Orders Doctor CUI 1.2.840.114 [id number] Univers 00:00:00 00:00:00 Only Unassigned, NATTY [id number] ity of [place] HOSPITAL 4.2.7.2.686 Jeff as [id number] [address] 2020-09-26 2020-09-26 Telephone [facility] 1.2.840.114 [id number] 00:00:00 00:00:00 [facility] [id number] CLINICS 4.2.7.2.686 [id number] [facility] 2020-09-26 2020-09-26 Telephone [facility] 1.2.840.114 [id number] Univers 00:00:00 00:00:00 [facility] [id number] i ty of CLINICS 4[place]7.2.[place] [id number] [address] 2020-09-01 2020-09-01 Orders Doctor CUI 1.2.840.114 [id number] 00:00:00 00:00:00 Only Unassigned, NATTY 350.1.13.10 [place] [facility] 4.2.7.2.686 [id number] [id number] 2020-09-01 2020-09-01 Orders Doctor BASILIA 1.2.840.114 [id number] Univers 00:00:00 00:00:00 Only Unassigned, NATTY [id number] ity of [place] [facility] 4.2.7.2.686 Jeff as [id number] [facility] 009 Branch 2020-08-25 2020-08-25 Transition Tuan Peters 1.2.840.114 [id number] 00:00:00 00:00:00 of Care Ruchi Braswell [id number] [place] 4.2.7.2.686 [id number] [facility] 2020-08-25 2020-08-25 Transition Tuan Peters 1.2.840.114 [id number] [facility] 00:00:00 00:00:00 of Care Ruchi Garciay [id number] it [place] [id number] [address] 2020-08-21 2020-08-23 [facility] Ayleen 1.2.840.114 [id number] 01:07:00 18:35:00 Encounter Kelly Amaya [id number] [facility] 4.2.7.2.686 [id number] [facility] 2020-08-21 2020-08-23 [facility] 1. 2.840.114 [id number] [facility] 01:07:00 18:35:00 Encounter Mukul Gallardo BebaSarbjit Amaya 350.1.13. 10 ity [facility] 4.2.7.2.686 Jeff as [id number] [address] Results Test Description Test Time Test Comments Results Result Comments Source POCT GLUCOSE (AUTOMATED) 2020-12-17 15:43:35 Test Item Value Reference Range Interpretation Comme nts POCT GLU (test code = 0774598075) 129 mg/dL 70-110 H Lab Interpretation (test code = 65924-0) Abnormal [facility] METABOLIC PANEL (NA, K, CL, CO2, GLUCOSE, BUN, CREATININE, CA)2020-12-17 11:45:07 Test Item Value Reference Range Interpretation Comments NA (test code = 137 mmol/L 135-145 8472998551) K (test code = 3.5 mmol/L 3.5-5.0 9901250030) CL (test code = 103 mmol/L 98-108 5849681906) CO2 TOTAL (test code = 26 mmol/L 23-31 2978309258) AGAP (test code = 2-16 0973544234) BUN (test code = 11 mg/dL 7-23 2762991773) GLUCOSE (test code = 175 mg/dL 70-110 H 1935787950) CREATININE (test code = 0.62 mg/dL 0.60-1.25 3683778436) CALCIUM (test code = 9.0 mg/dL 8.6-10.6 3118332677) eGFR Calculation mL/min/1.73m2 (Non-) (test code = 1948638244) eGFR Calculation mL/min/1.73m2 () (test code = 1601325436) JAMES (test code = JAMES) Association of [...] tests). Lab Interpretation Abnormal (test code = 88959-6) [facility] WITH [id number] 11:07:27 Test Item Value Reference Range Interpretation [...] RDW-SD (test code = 45.2 fL 38.5-51.6 10734-0) RDW-CV (test code = 16.9 % 12.1-15.4 H 788-0) PLT (test code = See_Comment H [Automated 777-3) message] The sy stem which generated this result transmitted reference range : 150 - 328 10*3/ ?L. The reference r torito was not used to interpret this result as normal/abnormal . MPV (test code = 8.1 fL 9.8-13.0 L 04968-3) NRBC/100 WBC (test See_Comment [Automat ed code = 1083643167) message] The system which generated this result transmitted reference range : 0.0 - 10.0 /100 WBCs. The refer ence range was not u sed to interpret th is result as normal/abnormal . NRBC x10^3 (test code <0.01 See_Comment [Auto mated = 5990397652) message] The s ystem which generated this result transmitted reference range : 10*3/?L. The reference range was not used to interpret this result as normal/abnormal . GRAN MAT (NEUT) % 72.8 % (test code = 770-8) IMM GRAN % (test code 0.60 % = 3068999006) LYMPH % (test code = 18.4 % 736-9) MONO % (test code = 5.7 % 5905-5) EOS % (test code = 1.8 % 713-8) BASO % (test code = 0.7 % 706-2) GRAN MAT x10^3(ANC) 8.23 10*3/uL 1.99-6.95 H (test code = 0804320688) IMM GRAN x10^3 (test 0.07 10*3/uL 0.00-0.06 H code = 4652343385) LYMPH x10^3 (test code 2.08 10*3/uL 1.09-3.23 = 731-0) MONO x10^3 (test code 0.65 10*3/uL 0.36-1.02 = 742-7) EOS x10^3 (test code = 0.20 10*3/uL 0.06-0.53 711-2) BASO x10^3 (test code 0.08 10*3/uL 0.01-0.09 = 704-7) Lab Interpretation Abnormal (test code = 58818-0) [facility]17 06:03:38 Test Item Value Reference Range Interpretation Comments POCT GLU (test code = 4971500618) 75 mg/dL 70-110 Lab Interpretation (test code = Normal 40598-1) [facility], [id number] 00:01:00 Test Item Value Reference Range Interpretation Comments VIT B6 (test code = 13.1 nmol/L 20.0-125.0 L INTERPRE TIVE 02082-5) INFORMATION: Vi tamin B6 (Pyridoxal 5-Phosphate) Pyridoxal [...] intended for cl inical purposes.Perfor med By: [employer] [place] [address] [id number] Director: Namrata Klein MD Lab Interpretation Abnormal (test code = 23107-6) [facility] TIBIA FIBULA 2 VW [id number] 23:57:09 Tricompartmental knee joint osteoarthrosis.XR TIBIA FIBULA [...] No acute fracture or dislocation.IMPRESSIONTricompartmental knee joint osteoarthrosis.[facility] GLUCOSE (AUTOMATED) 2020-12-16 23:27:00 Test Item Value Reference Range Interpretation Comments POCT GLU (test code = 5520164823) 114 mg/dL 70-110 H Lab Interpretation (test code = Abnormal 06811-7) [facility] GLUCOSE (AUTOMATED)2020-12-16 20:12:00 Test Item Value Reference Range Interpretation Comments POCT GLU (test code = 2249805598) 105 mg/dL 70-110 Lab Interpretation (test code = Normal 65266-4) [facility] GLUCOSE (AUTOMATED)2020-12-16 14:44:00 Test Item Value Reference Range Interpretation Comments POCT GLU (test code = 1310389344) 153 mg/dL 70-110 H Lab Interpretation (test code = Abnormal 71031-4) [facility] (NA, K, CL, CO2, GLUCOSE, BUN, CREATININE, CA)2020-12-16 14:23:00 Test Item Value Reference Range Interpretation Comments NA (test code = 138 mmol/L 135-145 3014315725) K (test code = 3.4 mmol/L 3.5-5.0 L 7938262118) CL (test code = 100 mmol/L 98-108 7441562537) CO2 TOTAL (test code = 31 mmol/L 23-31 3322245385) AGAP (test code = 2-16 6990129076) BUN (test code = 11 mg/dL 7-23 6045713378) GLUCOSE (test code = 162 mg/dL 70-110 H 1774130441) CREATININE (test code = 0.64 mg/dL 0.60-1.25 8475722831) CALCIUM (test code = 8.9 mg/dL 8.6-10.6 8498046774) eGFR Calculation mL/min/1.73m2 (Non-) (test code = 9781386771) eGFR Calculation mL/min/1.73m2 () (test code = 5369761608) JAMES (test code = JAMES) Association of [...] tests). Lab Interpretation Abnormal (test code = 84919-1) [facility] WITH [id number] 14:05:00 Test Item Value Reference Range Interpretation [...] RDW-SD (test code = 45.4 fL 38.5-51.6 06462-7) RDW-CV (test code = 17.0 % 12.1-15.4 H 788-0) PLT (test code = See_Comment H [Automated 777-3) message] The sy stem which generated this result transmitted reference range : 150 - 328 10*3/ ?L. The reference r torito was not used to interpret this result as normal/abnormal . MPV (test code = 8.0 fL 9.8-13.0 L 59500-4) NRBC/100 WBC (test See_Comment [Automat ed code = 8120264910) message] The system which generated this result transmitted reference range : 0.0 - 10.0 /100 WBCs. The refer ence range was not u sed to interpret th is result as normal/abnormal . NRBC x10^3 (test code <0.01 See_Comment [Auto mated = 5012329479) message] The s ystem which generated this result transmitted reference range : 10*3/?L. The reference range was not used to interpret this result as normal/abnormal . GRAN MAT (NEUT) % 70.0 % (test code = 770-8) IMM GRAN % (test code 0.70 % = 4085944904) LYMPH % (test code = 20.5 % 736-9) MONO % (test code = 7.1 % 5905-5) EOS % (test code = 1.0 % 713-8) BASO % (test code = 0.7 % 706-2) GRAN MAT x10^3(ANC) 9.44 10*3/uL 1.99-6.95 H (test code = 4726273845) IMM GRAN x10^3 (test 0.09 10*3/uL 0.00-0.06 H code = 4874651444) LYMPH x10^3 (test code 2.76 10*3/uL 1.09-3.23 = 731-0) MONO x10^3 (test code 0.96 10*3/uL 0.36-1.02 = 742-7) EOS x10^3 (test code = 0.13 10*3/uL 0.06-0.53 711-2) BASO x10^3 (test code 0.10 10*3/uL 0.01-0.09 H = 704-7) Lab Interpretation Abnormal (test code = 97533-0) [facility]anoBlood Culture - Peripheral # [id number] 13:01:00 Test Item Value Reference Range Interpretation Comments Blood Culture-Aerobic No organisms No growth Previo us (test code = 80426-4) isolated prelim inary verified result was Culture In Progress on 12/11/2020 at 100 1 CSTPrevious preliminary verified result was No growth a t 24 hours on 12/12/2020 at 070 1 CSTPrevious preliminary verified result was No growth a t 48 hours on 12/13/2020 at 070 1 CSTPrevious preliminary verified result was No growth a t 72 hours on 12/14/2020 at 070 1 [employer] Blood No organisms No growth Previous Culture-Anaerobic isolated preliminar y (test code = 39507-3) verifi ed result was Culture In Progress on 12/11/2020 at 100 1 CSTPrevious preliminary verified result was No growth a t 24 hours on 12/12/2020 at 070 1 CSTPrevious preliminary verified result was No growth a t 48 hours on 12/13/2020 at 070 1 CSTPrevious preliminary verified result was No growth a t 72 hours on 12/14/2020 at 070 1 [employer] Lab Interpretation Normal (test code = 74452-2) [facility] [id number] 13:01:00 Test Item Value Reference Range Interpretation Comments Blood Culture-Aerobic No organisms No growth Previo us (test code = 30963-8) isolated prelim inary verified result was Culture In Progress on 12/11/2020 at 100 1 CSTPrevious preliminary verified result was No growth a t 24 hours on 12/12/2020 at 070 1 CSTPrevious preliminary verified result was No growth a t 48 hours on 12/13/2020 at 070 1 CSTPrevious preliminary verified result was No growth a t 72 hours on 12/14/2020 at 070 1 [employer] Blood No organisms No growth Previous Culture-Anaerobic isolated preliminar y (test code = 50368-1) verifi ed result was Culture In Progress on 12/11/2020 at 100 1 CSTPrevious preliminary verified result was No growth a t 24 hours on 12/12/2020 at 070 1 CSTPrevious preliminary verified result was No growth a t 48 hours on 12/13/2020 at 070 1 CSTPrevious preliminary verified result was No growth a t 72 hours on 12/14/2020 at 070 1 [employer] Lab Interpretation Normal (test code = 59041-7) [facility] GLUCOSE (AUTOMATED)2020-12-16 04:01:00 Test Item Value Reference Range Interpretation Comments POCT GLU (test code = 1712087273) 156 mg/dL 70-110 H Lab Interpretation (test code = Abnormal 18878-5) [facility] GLUCOSE (AUTOMATED)2020-12-16 00:24:00 Test Item Value Reference Range Interpretation Comments POCT GLU (test code = 0984357795) 115 mg/dL 70-110 H Lab Interpretation (test code = Abnormal 45402-4) [facility] CHEST PULMONARY [id number] 23:34:55No pulmonary emboli. No interval change in [...] of intra and extrahepatic biliary du ctal dilatation.[facility] GLUCOSE (AUTOMATED) 2020-12-15 19:28:00 Test Item Value Reference Range Interpretation Comments POCT GLU (test code = 6178033927) 140 mg/dL 70-110 H Lab Interpretation (test code = Abnormal 70646-0) [facility]2021[facility]-05 15:26:00 Test Item Value Reference Range Interpretation Comments MAGNESIUM (test code = 4916212240) 2.2 mg/dL 1.7-2.4 Lab Interpretation (test code = Normal 44553-2) [facility]2020-12-15 15:15:00 Test Item Value Reference Range Interpretation Comments POCT GLU (test code = 9095733444) 181 mg/dL 70-110 H Lab Interpretation (test code = Abnormal 08176-4) [facility] (NA, K, CL, CO2, GLUCOSE, BUN, CREATININE, CA)2020-12-15 13:07:00 Test Item Value Reference Range Interpretation Comments NA (test code = 136 mmol/L 135-145 2435010220) K (test code = 3.6 mmol/L 3.5-5.0 7487978379) CL (test code = 96 mmol/L 98-108 L 5348769767) CO2 TOTAL (test code = 29 mmol/L 23-31 6053905387) AGAP (test code = 2-16 4502142164) BUN (test code = 12 mg/dL 7-23 5101611469) GLUCOSE (test code = 183 mg/dL 70-110 H 2284358627) CREATININE (test code = 0.70 mg/dL 0.60-1.25 4226872351) CALCIUM (test code = 9.2 mg/dL 8.6-10.6 4714375735) eGFR Calculation mL/min/1.73m2 (Non-) (test code = 6414051651) eGFR Calculation mL/min/1.73m2 () (test code = 4047513122) JAMES (test code = JAMES) Association of [...] tests). Lab Interpretation Abnormal (test code = 32121-8) [facility] WITH [id number] 12:32:00 Test Item Value Reference Range Interpretation Comments WBC (test code = See_Comment H [Automated 1790-2) message] The system which generated this result transmit ronan reference range : 4.20 - 10.70 10*3/?L. The reference range was not used to interpret this result as normal/abnormal . RBC (test code = See_Comment H [Automated 859-8) message] The system which generated this result [...] RDW-SD (test code = 44.4 fL 38.5-51.6 56989-4) RDW-CV (test code = 17.7 % 12.1-15.4 H 788-0) PLT (test code = See_Comment H [Automated 777-3) message] The system which generated this result transmit ronan reference range : 150 - 328 10*3/ ?L. The reference range was not u sed to interpret th is result as normal/abnormal . MPV (test code = 8.1 fL 9.8-13.0 L 97775-5) NRBC/100 WBC (test See_Comment [Automat ed code = 8398893164) message] The system which generated this result transmit ronan reference range : 0.0 - 10.0 /100 WBCs. The reference range was not used to interpret this result as normal/abnormal . NRBC x10^3 (test code <0.01 See_Comment [Auto mated = 1247005627) message] The system which generated this result transmit ronan reference range : 10*3/?L. The reference range was not used to interpret this result as normal/abnormal . GRAN MAT (NEUT) % 74.5 % (test code = 770-8) IMM GRAN % (test code 0.70 % = 0753000553) LYMPH % (test code = 17.4 % 736-9) MONO % (test code = 6.8 % 5905-5) EOS % (test code = 0.2 % 713-8) BASO % (test code = 0.4 % 706-2) GRAN MAT x10^3(ANC) 11.99 10*3/uL 1.99-6.95 H (test code = 8163515010) IMM GRAN x10^3 (test 0.11 10*3/uL 0.00-0.06 H code = 3659284749) LYMPH x10^3 (test code 2.80 10*3/uL 1.09-3.23 = 731-0) MONO x10^3 (test code 1.10 10*3/uL 0.36-1.02 H = 742-7) EOS x10^3 (test code = 0.03 10*3/uL 0.06-0.53 L 711-2) BASO x10^3 (test code 0.06 10*3/uL 0.01-0.09 = 704-7) Lab Interpretation Abnormal (test code = 33051-9) [facility] GLUCOSE (AUTOMATED)2020-12-15 04:16:00 Test Item Value Reference Range Interpretation Comments POCT GLU (test code = 5157646992) 200 mg/dL 70-110 H Lab Interpretation (test code = Abnormal 42932-2) [facility] (THIAMINE), WHOLE [id number] 00:30:00 Test Item Value Reference Range Interpretation Comments Vitamin B1, Whole 136 nmol/L 70-180 INTERPRETI VE INFORMATION: Blood (test code = Vitamin B 1, Whole Blood 16835-8) This assay júnior ures the concentration o [...] clinical purposes.Perfor med By: [facility] [employer] [place] [address] 13907H aboratory Director: Namrata Klein MD [facility] GLUCOSE (AUTOMATED)2020-12-14 23:35:00 Test Item Value Reference Range Interpretation Comments POCT GLU (test code = 4674630775) 151 mg/dL 70-110 H Lab Interpretation (test code = Abnormal 59374-6) [facility] GLUCOSE (AUTOMATED)2020-12-14 19:19:00 Test Item Value Reference Range Interpretation Comments POCT GLU (test code = 9016324071) 193 mg/dL 70-110 H Lab Interpretation (test code = Abnormal 10262-0) [facility] GLUCOSE (AUTOMATED)2020-12-14 15:22:00 Test Item Value Reference Range Interpretation Comments POCT GLU (test code = 3351575062) 221 mg/dL 70-110 H Lab Interpretation (test code = Abnormal 11272-9) [facility] GLUCOSE (AUTOMATED)2020-12-14 02:37:00 Test Item Value Reference Range Interpretation Comments POCT GLU (test code = 2007388333) 210 mg/dL 70-110 H Lab Interpretation (test code = Abnormal 81332-4) [facility] GLUCOSE (AUTOMATED)2020-12-13 23:33:00 Test Item Value Reference Range Interpretation Comments POCT GLU (test code = 7826238068) 182 mg/dL 70-110 H Lab Interpretation (test code = Abnormal 45834-2) [facility] GLUCOSE (AUTOMATED)2020-12-13 18:09:00 Test Item Value Reference Range Interpretation Comments POCT GLU (test code = 4001264465) 150 mg/dL 70-110 H Lab Interpretation (test code = Abnormal 30099-4) [facility] METABOLIC PANEL (NA, K, CL, CO2, GLUCOSE, BUN, CREATININE, CA)2020-12-13 16:27:00 Test Item Value Reference Range Interpretation Comments NA (test code = 136 mmol/L 135-145 0930567632) K (test code = 3.7 mmol/L 3.5-5.0 4647032866) CL (test code = 96 mmol/L 98-108 L 5229743097) CO2 TOTAL (test code = 29 mmol/L 23-31 5192298796) AGAP (test code = 2-16 3259020434) BUN (test code = 6 mg/dL 7-23 L 2755628600) GLUCOSE (test code = 212 mg/dL 70-110 H 9216840422) CREATININE (test code = 0.61 mg/dL 0.60-1.25 9767167122) CALCIUM (test code = 9.5 mg/dL 8.6-10.6 8286234672) eGFR Calculation mL/min/1.73m2 (Non-) (test code = 7161993771) eGFR Calculation mL/min/1.73m2 () (test code = 8267070424) JAMES (test code = JAMES) Association of [...] tests). Lab Interpretation Abnormal (test code = 27401-3) [facility] WITH [id number] 16:10:00 Test Item Value Reference Range Interpretation Comments WBC (test code = See_Comment H [Automated 5390-2) message] The sy stem which generated this result transmitted reference range : 4.20 - 10.70 10*3/?L. The reference range was not used to interpret this result as normal/abnormal . RBC (test code = See_Comment H [Automated 669-8) message] The sy stem which generated this [...] RDW-SD (test code = 43.3 fL 38.5-51.6 87496-4) RDW-CV (test code = 16.2 % 12.1-15.4 H 788-0) PLT (test code = See_Comment H [Automated 777-3) message] The sy stem which generated this result transmitted reference range : 150 - 328 10*3/ ?L. The reference r torito was not used to interpret this result as normal/abnormal . MPV (test code = 8.2 fL 9.8-13.0 L 95788-7) NRBC/100 WBC (test See_Comment [Automat ed code = 3302177992) message] The system which generated this result transmitted reference range : 0.0 - 10.0 /100 WBCs. The refer ence range was not u sed to interpret th is result as normal/abnormal . NRBC x10^3 (test code <0.01 See_Comment [Auto mated = 2310620092) message] The s ystem which generated this result transmitted reference range : 10*3/?L. The reference range was not used to interpret this result as normal/abnormal . GRAN MAT (NEUT) % 86.2 % (test code = 770-8) IMM GRAN % (test code 0.70 % = 8787778890) LYMPH % (test code = 10.2 % 736-9) MONO % (test code = 2.5 % 5905-5) EOS % (test code = 0.1 % 713-8) BASO % (test code = 0.3 % 706-2) GRAN MAT x10^3(ANC) 9.61 10*3/uL 1.99-6.95 H (test code = 1600688611) IMM GRAN x10^3 (test 0.08 10*3/uL 0.00-0.06 H code = 4088339959) LYMPH x10^3 (test code 1.14 10*3/uL 1.09-3.23 = 731-0) MONO x10^3 (test code 0.28 10*3/uL 0.36-1.02 L = 742-7) EOS x10^3 (test code = <0.03 0.06-0.53 L 711-2) BASO x10^3 (test code 0.03 10*3/uL 0.01-0.09 = 704-7) Lab Interpretation Abnormal (test code = 91035-5) [facility]2020-12-13 14:16:00 Test Item Value Reference Range Interpretation Comments POCT GLU (test code = 4966072653) 236 mg/dL 70-110 H Lab Interpretation (test code = Abnormal 19356-6) [facility] COVID [id number] 04:58:00COVID DMT InterpretationInterpretation/Recommendations: Molecular NAAT Tests for [...] record. [facility] SERVICESCOVID Resu dcoHMJA-[id number] Rapid ID NOW (no units) ? ? Date ? Value ? 12/11/2020 ? Not Detected ? ? ? 11/16/2020 ? Not Detected ? ? ? 08/21/2020 ?Not Detected ? [facility]) 2020-12-13 03:11:00 Test Item Value Reference Range Interpretation Comments POCT GLU (test code = 3201629874) 171 mg/dL 70-110 H Lab Interpretation (test code = Abnormal 81362-3) [facility] GLUCOSE (AUTOMATED)2020-12-13 00:00:00 Test Item Value Reference Range Interpretation Comments POCT GLU (test code = 3687749321) 118 mg/dL 70-110 H Lab Interpretation (test code = Abnormal 77076-3) [facility] GLUCOSE (AUTOMATED)2020-12-12 20:29:00 Test Item Value Reference Range Interpretation Comments POCT GLU (test code = 2418744509) 173 mg/dL 70-110 H Lab Interpretation (test code = Abnormal 58528-9) [facility]anoUS ABDOMEN [id number] 19:56:17 1. ?Hepatic steatosis. However, limited evaluation [...] main portal veinwasevaluated with color Doppler imaging. [employer] images were obtainedfor the record. COMPARISON: Ultrasound [...] where visualized. SPLEEN:No images were obtained. [facility], Radiant Results Inft User - 12/12/2020 1:57 PM CSTEXAM: US ABDOMEN LIMITEDHISTORY: 70 years-old male with RUQ ultrasound to assess for common bileduct dilation .TECHNIQUE: Limited abdominal ultrasound focused on the liver, biliarysystem, pancreas, and spleen was performed. The main portal vein wasevaluated with color Doppler imaging. [employer] images were obtainedfor the record.COMPARISON: Ultrasound abdomen [...] and agree with the abovereport. [facility]2020-12-12 19:24:00 Test Item Value Reference Range Interpretation Comments POCT GLU (test code = 8802690551) 230 mg/dL 70-110 H Lab Interpretation (test code = Abnormal 93478-6) [facility]XR CHEST 1 [id number] 15:16:46 Low lung volumes with mild perihilar [...] thisstudy and agree with theabove report.[facility]2020-12-12 14:34:00 Test Item Value Reference Range Interpretation Comments POCT GLU (test code = 3234697131) 225 mg/dL 70-110 H Lab Interpretation (test code = Abnormal 58920-7) [facility]anoURINE [id number] 13:28:00 Test Item Value Reference Range Interpretation Comments URINE CULTURE (test < 10,000 CFU/mL mixed code = 630-4) aerobic organisms - suggests endogenous microbial contamination [facility] Metabolic Panel (NA, K, CL, CO2, GLUCOSE, BUN, CREATININE, CA)2020-12-12 10:05:00 Test Item Value Reference Range Interpretation Comments NA (test code = 136 mmol/L 135-145 3750010732) K (test code = 3.5 mmol/L 3.5-5.0 9843540554) CL (test code = 100 mmol/L 98-108 1633388492) CO2 TOTAL (test code = 31 mmol/L 23-31 8901786722) AGAP (test code = 2-16 7347514009) BUN (test code = 7 mg/dL 7-23 7888884292) GLUCOSE (test code = 259 mg/dL 70-110 H 5030641388) CREATININE (test code = 0.63 mg/dL 0.60-1.25 2413651443) CALCIUM (test code = 8.5 mg/dL 8.6-10.6 L 1977535153) eGFR Calculation mL/min/1.73m2 (Non-) (test code = 5015863568) eGFR Calculation mL/min/1.73m2 () (test code = 4835714113) JAMES (test code = JAMES) Association of [...] tests). Lab Interpretation Abnormal (test code = 50073-0) [facility] PlanoMagnesium [id number] 10:05:00 Test Item Value Reference Range Interpretation Comments MAGNESIUM (test code = 9015514461) 1.9 mg/dL 1.7-2.4 Lab Interpretation (test code = Normal 30695-2) [facility] with [id number] 09:48:00 Test Item Value Reference Range Interpretation Comments WBC (test code = See_Comment [Automated 8619-2) message] The sy stem which generated this result transmitted reference range : 4.20 - 10.70 10*3/?L. The reference range was not used to interpret this result as normal/abnormal . RBC (test code = See_Comment [Automated 783-8) message] The sy stem which generated this [...] RDW-SD (test code = 46.0 fL 38.5-51.6 10528-9) RDW-CV (test code = 16.1 % 12.1-15.4 H 788-0) PLT (test code = See_Comment H [Automated 777-3) message] The sy stem which generated this result transmitted reference range : 150 - 328 10*3/ ?L. The reference r torito was not used to interpret this result as normal/abnormal . MPV (test code = 8.6 fL 9.8-13.0 L 99497-7) NRBC/100 WBC (test See_Comment [Automat ed code = 9747470512) message] The system which generated this result transmitted reference range : 0.0 - 10.0 /100 WBCs. The refer ence range was not u sed to interpret th is result as normal/abnormal . NRBC x10^3 (test code <0.01 See_Comment [Auto mated = 2384970635) message] The s ystem which generated this result transmitted reference range : 10*3/?L. The reference range was not used to interpret this result as normal/abnormal . GRAN MAT (NEUT) % 70.2 % (test code = 770-8) IMM GRAN % (test code 0.30 % = 7862741466) LYMPH % (test code = 18.8 % 736-9) MONO % (test code = 5.0 % 5905-5) EOS % (test code = 5.2 % 713-8) BASO % (test code = 0.5 % 706-2) GRAN MAT x10^3(ANC) 6.05 10*3/uL 1.99-6.95 (test code = 4528911555) IMM GRAN x10^3 (test 0.03 10*3/uL 0.00-0.06 code = 6364389147) LYMPH x10^3 (test code 1.62 10*3/uL 1.09-3.23 = 731-0) MONO x10^3 (test code 0.43 10*3/uL 0.36-1.02 = 742-7) EOS x10^3 (test code = 0.45 10*3/uL 0.06-0.53 711-2) BASO x10^3 (test code 0.04 10*3/uL 0.01-0.09 = 704-7) Lab Interpretation Abnormal (test code = 73821-8) [facility] GLUCOSE (AUTOMATED)2020-12-12 03:42:00 Test Item Value Reference Range Interpretation Comments POCT GLU (test code = 196 mg/dL 70-110 H Notifi ed Provider [id number]) Lab Interpretation (test Abnormal code = 14448-7) [facility]FOLATE2021-[facility]-02 02:24:00 Test Item Value Reference Range Interpretation Comments FOLATE SER (test code = 9871963410) 5.8 ng/mL 3.0-20.0 Lab Interpretation (test code = Normal 10053-6) [facility]anoVITAMIN B12, [id number] 00:55:00 Test Item Value Reference Range Interpretation Comments VIT B12 (test code = 844 pg/mL 240-930 3635076259) JAMES (test code = JAMES) Biotin has been reported to cause a positive bias, interpret results relative to patient's use of biotin. Lab Interpretation (test Normal code = 04824-1) [facility] GLUCOSE (AUTOMATED)2020-12-12 00:14:00 Test Item Value Reference Range Interpretation Comments POCT GLU (test code = 9526414266) 164 mg/dL 70-110 H Lab Interpretation (test code = Abnormal 15726-2) [facility]anoCREATINE [id number] 23:42:00 Test Item Value Reference Range Interpretation Comments CK (test code = 7820464082) <20 33-194 L Lab Interpretation (test code = Abnormal 58547-4) [facility]anoTHYROID STIMULATING [id number] 23:17:00 Test Item Value Reference Range Interpretation Comments TSH (test code = See_Comment Biotin has been 0866983283) reported to cau se a negative bias, interpret resul ts relative to pat ient's use of biotin. [Automated mess age] The system [employer] generated this result transmitted ref erence range: 0.45 - 4 .70 mIU/L. The refe rence range was not u sed to interpret this result as normal/abnor mal. Lab Interpretation (test Normal code = 29455-7) [facility]XR [facility] VW [id number] 21:41:53No appreciable fracture lines. RL: 6200 ICAL HISTORY:Pain. COMPARISON:none TECHNIQUE:XR HIPS 3 VW LEFT performed. Technical Quality: Adequate FINDINGS:There are no appreciable fracture lines or subluxations. ?There is grossanatomic alignment. ?No appreciable joint effusion. Moderate to severe hip joint space narrowing, with arthropathy. Marginalosteophytes and subchondral sclerosis. No osseous erosions. Tnmb, Radiant Results Inft User -12/11/2020 3:43 PM CSTCLINICAL HISTORY:Pain.COMPARISON:noneTECHNIQUE:XR HIPS 3 VW LEFT performed. Technical Quality: AdequateFINDINGS:There are no appreciable fracture lines or subluxations. There isgrossanatomic alignment. No appreciable joint effusion.Moderate to severe hip joint space narrowing, with arthropathy. Marginalosteophytes and subchondral sclerosis. No osseous erosions.IMPRESSIONNo appreciable fracture lines.RL: 6200 Un[facility] CampusPROCALCITONIN2021-03-01 20:00:00 Test Item Value Reference Range Interpretation Comments Procalcitonin (test 0.13 ng/mL <0.07 H code = 2749855119) JAMES (test code = JAMES) INTERPRETATION OF [...] lung abscess/empyema. For further information please refer to:[email or web address] Lab Interpretation Abnormal (test code = 34362-0) [facility]POCT GLU[facility]SE (AUTOMATED)2020-12-11 19:07:00 Test Item Value Reference Range Interpretation Comments POCT GLU (test code = 5104558298) 274 mg/dL 70-110 H Lab Interpretation (test code = Abnormal 69531-9) [facility]MAGNESIUM2021-03-01 18:31:00 Test Item Value Reference Range Interpretation Comments MAGNESIUM (test code = 4201810691) 1.9 mg/dL 1.7-2.4 Lab Interpretation (test code = Normal 73297-7) [facility]anoFERRITIN [id number] 18:31:00 Test Item Value Reference Range Interpretation Comments FERRITIN (test code = 178.0 ng/mL 18.0-464.0 5652196069) JAMES (test code = JAMES) Biotin has been reported to cause a negative bias, interpret results relative to patient's use of biotin. Lab Interpretation (test Normal code = 72242-3) [facility]anoCT HEAD WO [id number] 14:36:47 No acute intracranial abnormality. Dilated ventricles [...] study and agree with the abovereport.[facility]anoURINALYSIS2021-03-01 14:28:00 Test Item Value Reference Range Interpretation Comments APPEARANCE (test code = Clear Clear 8624139383) COLOR (test code = Yellow Yellow 4507639252) PH (test code = 4.8-8.0 9368559539) SP GRAVITY (test code = 1.003-1.030 7875377611) GLU U QUAL (test code = 500 mg/dL Normal A 4728750194) BLOOD (test code = Negative Negative 9516003225) KETONES (test code = 5 mg/dL Negative A 4124337434) PROTEIN (test code = Negative Negative 2887-8) UROBILIN (test code = Normal Normal 6921316800) BILIRUBIN (test code = Negative Negative 2259129997) NITRITE (test code = Negative Negative 3334002478) LEUK RYAN (test code = Negative Negative 7658821795) RBC/HPF (test code = See_Comment [Autom ated message] 4573587938) The system [employer] generated this result transmit ronan reference range : 0 - 3 HPF. The refe rence range was not u sed to interpret th is result as normal/abnormal . WBC/HPF (test code = See_Comment [Autom ated message] 0206566441) The system [employer] generated this result transmit ronan reference range : 0 - 5 HPF. The refe rence range was not u sed to interpret th is result as normal/abnormal . BACTERIA (test code = Negative Negative 3591461925) MUCOUS (test code = Slight Negative LPF A 6138442147) SQ EPITH (test code = HPF 2482640930) Lab Interpretation (test Abnormal code = 99785-1) [facility]anoCOVID-19 (ID NOW RAPID TESTING)2020-12-11 13:10:00 Test Item Value Reference Range Interpretation Comments SARS-CoV-2 Rapid ID NOW Not Detected Not Detected (test code = 29715-4) JAMES (test code = JAMES) ID NOW COVID-19 Assay is an isothermal nucleic acid amplification test intended for the qualitative detection of nucleic acid from SARS-CoV-2 viral RNA in nasopharyngeal (DIDACTIC INSTRUCTOR) specimens. It is used under Emergency Use [...] indicated. Lab Interpretation Normal (test code = 49858-3) [facility]anoCOM. METABOLIC PANEL (13131)2020-12-11 12:29:00 Test Item Value Reference Range Interpretation Comments NA (test code = 136 mmol/L 135-145 5797130249) K (test code = 3.5 mmol/L 3.5-5.0 0956774569) CL (test code = 95 mmol/L 98-108 L 6438095966) CO2 TOTAL (test code = 35 mmol/L 23-31 H 7166638642) AGAP (test code = 2-16 6329045310) BUN (test code = 9 mg/dL 7-23 5315204987) GLUCOSE (test code = 329 mg/dL 70-110 H 4170226891) CREATININE (test code = 0.72 mg/dL 0.60-1.25 3360292015) TOTAL BILI (test code = 0.6 mg/dL 0.1-1.7 3672907531) CALCIUM (test code = 9.0 mg/dL 8.6-10.6 5673688722) T PROTEIN (test code = 6.8 g/dL 6.3-8.2 4218310688) ALBUMIN (test code = 3.8 g/dL 3.5-5.0 8994722604) ALK PHOS (test code = 288 U/L 34-122 H 3307295261) ALTv (test code = 46 U/L 5-50 2-6) AST(SGOT) (test code = 38 U/L 13-40 9685660755) eGFR Calculation mL/min/1.73m2 (Non-) (test code = 7597702448) eGFR Calculation mL/min/1.73m2 () (test code = 4319569734) JAMES (test code = JAMES) Association of [...] tests). Lab Interpretation Abnormal (test code = 95900-0) [facility] PlanoLactic Acid Whole [id number] 12:23:00 Test Item Value Reference Range Interpretation Comments LACTIC ACID (test code = 2.09 mmol/L 0.50-2.20 3498607454) Lab Interpretation (test code = Normal 55365-7) [facility]anoCB WITH [id number] 12:17:00 Test Item Value Reference Range Interpretation [...] RDW-SD (test code = 44.9 fL 38.5-51.6 26477-3) RDW-CV (test code = 15.9 % 12.1-15.4 H 788-0) PLT (test code = See_Comment H [Automated 777-3) message] The sy stem which generated this result transmitted reference range : 150 - 328 10*3/ ?L. The reference r torito was not used to interpret this result as normal/abnormal . MPV (test code = 8.3 fL 9.8-13.0 L 87666-9) NRBC/100 WBC (test See_Comment [Automat ed code = 3137833682) message] The system which generated this result transmitted reference range : 0.0 - 10.0 /100 WBCs. The refer ence range was not u sed to interpret th is result as normal/abnormal . NRBC x10^3 (test code <0.01 See_Comment [Auto mated = 9778291453) message] The s ystem which generated this result transmitted reference range : 10*3/?L. The reference range was not used to interpret this result as normal/abnormal . GRAN MAT (NEUT) % 77.9 % (test code = 770-8) IMM GRAN % (test code 0.50 % = 2486983757) LYMPH % (test code = 12.2 % 736-9) MONO % (test code = 5.2 % 5905-5) EOS % (test code = 3.7 % 713-8) BASO % (test code = 0.5 % 706-2) GRAN MAT x10^3(ANC) 9.57 10*3/uL 1.99-6.95 H (test code = 1954486029) IMM GRAN x10^3 (test 0.06 10*3/uL 0.00-0.06 code = 8201463334) LYMPH x10^3 (test code 1.50 10*3/uL 1.09-3.23 = 731-0) MONO x10^3 (test code 0.64 10*3/uL 0.36-1.02 = 742-7) EOS x10^3 (test code = 0.46 10*3/uL 0.06-0.53 711-2) BASO x10^3 (test code 0.06 10*3/uL 0.01-0.09 = 704-7) Lab Interpretation Abnormal (test code = 36475-3) [facility]anoLAB ONLY COVID [id number] 18:43:00COVID DMT InterpretationInterpretation/Recommendations: Molecular NAAT Test Results [...] a nasopharyngeal sample, there is approximately a mki-ww-kdcue chance that the patient was infected and [...] based upon aggregate data pooled from the [facility] medical record including both current and prior COVID-19 related testing results for the following tests offered at our institution:A. Tests for the Identification of SARS-CoV-2 RNA:SARS-CoV-2 PCR assays including [place] Aptima, [place] Fusion, Barrett RealTime, and [employer] Xpert Xpress. SARS-CoV-2 Rapid ID NOW by the ID NOW assay. ? B. Tests for the Identification of SARS-CoV-2 Antibodies: Chemiluminescent immunoassays including Access SARS-CoV-2 IgM (DXI 600), [employer] Bzkg-ZXSG-UbJ-2 IgG (Vitros 5600 and Vitros 3600), and Barrett SARS-CoV-2 IgG (BUILDING CONSTRUCTION PROFESSOR I System). These interpretation comments assume that only the above testing was utilized and that the approved acceptable specimen type(s) were used for a given test. These interpretations are autopopulated into [employer] based on computerized algorithms matching an interpretation [...] this setting. [facility] SERVICESCOVID JorecijKYWW-SmW-0 Rapid ID NOW (no units) ? ? Date ? Value ? 08/21/2020 ? Not Detected ? [facility] SERVICESUn[facility]SE (AUTOMATED)2020-08-23 18:25:00 Test Item Value Reference Range Interpretation Comments POCT GLU (test code = 0649137603) 297 mg/dL 70-110 H Lab Interpretation (test code = Abnormal 22722-2) [facility] GLUCOSE (AUTOMATED)2020-08-23 14:25:00 Test Item Value Reference Range Interpretation Comments POCT GLU (test code = 1008550592) 181 mg/dL 70-110 H Lab Interpretation (test code = Abnormal 29605-6) [facility]anoBasic Metabolic Panel (NA, K, CL, CO2, GLUCOSE, BUN, CREATININE, CA)2020-08-23 11:45:00 Test Item Value Reference Range Interpretation Comments NA (test code = 132 mmol/L 135-145 L 8483891074) K (test code = 4.0 mmol/L 3.5-5 4457897176) CL (test code = 96 mmol/L 98-108 L 6380289743) CO2 TOTAL (test code = 33 mmol/L 23-31 H 4243900392) AGAP (test code = 2-16 4834551597) BUN (test code = 9 mg/dL 7-23 0140111786) GLUCOSE (test code = 176 mg/dL 70-110 H 8672037792) CREATININE (test code = 0.66 mg/dL 0.6-1.25 0035609076) CALCIUM (test code = 8.5 mg/dL 8.6-10.6 L 7230996810) eGFR Calculation mL/min/1.73m2 (Non-) (test code = 1164727471) eGFR Calculation mL/min/1.73m2 () (test code = 8016963791) JAMES (test code = JAMES) Association of [...] tests). Lab Interpretation Abnormal (test code = 15838-2) [facility] PlanoMagnesium [id number] 11:45:00 Test Item Value Reference Range Interpretation Comments MAGNESIUM (test code = 1212486088) 2.0 mg/dL 1.7-2.4 Lab Interpretation (test code = Normal 83021-7) [facility]anoCB with [id number] 11:38:00 Test Item Value Reference Range Interpretation [...] RDW-SD (test code = 41.8 fL 38.5-51.6 39674-3) RDW-CV (test code = 14.3 % 12.1-15.4 788-0) PLT (test code = See_Comment H [Automated 777-3) message] The sy stem which generated this result transmitted reference range : 150 - 328 10*3/ ?L. The reference r torito was not used to interpret this result as normal/abnormal . MPV (test code = 8.0 fL 9.8-13 L 95767-5) NRBC/100 WBC (test See_Comment [Automat ed code = 2067075656) message] The system which generated this result transmitted reference range : 0.0 - 10.0 /100 WBCs. The refer ence range was not u sed to interpret th is result as normal/abnormal . NRBC x10^3 (test code <0.01 See_Comment [Auto mated = 3613208344) message] The s ystem which generated this result transmitted reference range : 10*3/?L. The reference range was not used to interpret this result as normal/abnormal . GRAN MAT (NEUT) % 61.5 % (test code = 770-8) IMM GRAN % (test code 2.00 % = 6397416785) LYMPH % (test code = 25.5 % 736-9) MONO % (test code = 6.3 % 5905-5) EOS % (test code = 3.7 % 713-8) BASO % (test code = 1.0 % 706-2) GRAN MAT x10^3(ANC) 5.29 10*3/uL 1.99-6.95 (test code = 9128070764) IMM GRAN x10^3 (test 0.17 10*3/uL 0-0.06 H code = 1401855818) LYMPH x10^3 (test code 2.19 10*3/uL 1.09-3.23 = 731-0) MONO x10^3 (test code 0.54 10*3/uL 0.36-1.02 = 742-7) EOS x10^3 (test code = 0.32 10*3/uL 0.06-0.53 711-2) BASO x10^3 (test code 0.09 10*3/uL 0.01-0.09 = 704-7) Lab Interpretation Abnormal (test code = 43304-8) [facility] GLUCOSE (AUTOMATED)2020-08-23 10:22:00 Test Item Value Reference Range Interpretation Comments POCT GLU (test code = 5785738202) 164 mg/dL 70-110 H Lab Interpretation (test code = Abnormal 01734-4) [facility] GLUCOSE (AUTOMATED)2020-08-23 05:56:00 Test Item Value Reference Range Interpretation Comments POCT GLU (test code = 0104181512) 242 mg/dL 70-110 H Lab Interpretation (test code = Abnormal 49280-4) [facility] GLUCOSE (AUTOMATED)2020-08-23 03:02:00 Test Item Value Reference Range Interpretation Comments POCT GLU (test code = 3431719446) 210 mg/dL 70-110 H Lab Interpretation (test code = Abnormal 12512-6) [facility] GLUCOSE (AUTOMATED)2020-08-22 23:40:00 Test Item Value Reference Range Interpretation Comments POCT GLU (test code = 2103088992) 267 mg/dL 70-110 H Lab Interpretation (test code = Abnormal 72296-3) [facility] GLUCOSE (AUTOMATED)2020-08-22 19:08:00 Test Item Value Reference Range Interpretation Comments POCT GLU (test code = 9548378596) 191 mg/dL 70-110 H Lab Interpretation (test code = Abnormal 57856-6) [facility] GLUCOSE (AUTOMATED)2020-08-22 13:50:00 Test Item Value Reference Range Interpretation Comments POCT GLU (test code = 5292878445) 174 mg/dL 70-110 H Lab Interpretation (test code = Abnormal 20549-9) [facility]anoURINE [id number] 12:59:00 Test Item Value Reference Range Interpretation Comments URINE CULTURE (test No aerobic growth (< code = 630-4) 1000 CFU/mL) [facility] with Eqpkrifodtoi8650-55-16 11:28:00 Test Item Value Reference Range Interpretation Comments WBC (test code = See_Comment [Automated 9990-2) message] The sy stem which generated this result transmitted reference range : 4.20 - 10.70 10*3/?L. The reference range was not used to interpret this result as normal/abnormal . RBC (test code = See_Comment L [Automated 909-8) message] The sy stem which generated this [...] RDW-SD (test code = 42.5 fL 38.5-51.6 00473-2) RDW-CV (test code = 14.5 % 12.1-15.4 788-0) PLT (test code = See_Comment H [Automated 777-3) message] The sy stem which generated this result transmitted reference range : 150 - 328 10*3/ ?L. The reference r torito was not used to interpret this result as normal/abnormal . MPV (test code = 8.0 fL 9.8-13 L 77065-9) NRBC/100 WBC (test See_Comment [Automat ed code = 7311893288) message] The system which generated this result transmitted reference range : 0.0 - 10.0 /100 WBCs. The refer ence range was not u sed to interpret th is result as normal/abnormal . NRBC x10^3 (test code <0.01 See_Comment [Auto mated = 2594830868) message] The s ystem which generated this result transmitted reference range : 10*3/?L. The reference range was not used to interpret this result as normal/abnormal . GRAN MAT (NEUT) % 69.1 % (test code = 770-8) IMM GRAN % (test code 2.20 % = 0696257010) LYMPH % (test code = 20.9 % 736-9) MONO % (test code = 5.8 % 5905-5) EOS % (test code = 1.0 % 713-8) BASO % (test code = 1.0 % 706-2) GRAN MAT x10^3(ANC) 6.51 10*3/uL 1.99-6.95 (test code = 7095337182) IMM GRAN x10^3 (test 0.21 10*3/uL 0-0.06 H code = 0450079452) LYMPH x10^3 (test code 1.97 10*3/uL 1.09-3.23 = 731-0) MONO x10^3 (test code 0.55 10*3/uL 0.36-1.02 = 742-7) EOS x10^3 (test code = 0.09 10*3/uL 0.06-0.53 711-2) BASO x10^3 (test code 0.09 10*3/uL 0.01-0.09 = 704-7) BASO STIPPLING (test Present A code = 703-9) BANDS (test code = Increased A 0838150968) TOXIC CHANGES (test Present A code = 803-7) Lab Interpretation Abnormal (test code = 76093-2) [facility] Metabolic Panel (NA, K, CL, CO2, GLUCOSE, BUN, CREATININE, CA)2020-08-22 11:12:00 Test Item Value Reference Range Interpretation Comments NA (test code = 135 mmol/L 135-145 4005407096) K (test code = 3.6 mmol/L 3.5-5 0347951349) CL (test code = 99 mmol/L 98-108 2513723816) CO2 TOTAL (test code = 31 mmol/L 23-31 8465969168) AGAP (test code = 2-16 7578546762) BUN (test code = 9 mg/dL 7-23 7593484125) GLUCOSE (test code = 198 mg/dL 70-110 H 0806924084) CREATININE (test code = 0.72 mg/dL 0.6-1.25 1439462836) CALCIUM (test code = 8.3 mg/dL 8.6-10.6 L 7692378612) eGFR Calculation mL/min/1.73m2 (Non-) (test code = 0843559113) eGFR Calculation mL/min/1.73m2 () (test code = 5402717142) JAMES (test code = JAMES) Association of [...] tests). Lab Interpretation Abnormal (test code = 55785-4) [facility]anoMagnesium [id number] 11:12:00 Test Item Value Reference Range Interpretation Comments MAGNESIUM (test code = 6754580424) 2.0 mg/dL 1.7-2.4 Lab Interpretation (test code = Normal 09738-3) [facility]anoLipid Panel (Total Cholesterol, Triglycerides, HDL) - [id number] 11:12:00 Test Item Value Reference Range Interpretation Comments CHOL (test code = 155 mg/dL 120-200 7229805233) HDL (test code = 42 mg/dL >40 0362516204) HDLC RATIO (test code = See_Comment [Au tomated message] 1074752401) The system [employer] generated this result transmit ronan reference range : <=5.0. The refe rence range was not u sed to interpret th is result as normal/abnormal . TRIG (test code = 186 mg/dL 30-170 H 6358046990) LDL CHOL (test code = 76 mg/dL See_Comment [Auto mated message] 00170-4) The system [employer] generated this result transmit ronan reference range : <=160. The refe rence range was not u sed to interpret th is result as normal/abnormal . VLDL (test code = 37 mg/dL 5-60 2029776400) Lab Interpretation (test Abnormal code = 41313-4) [facility]anoHEPATIC FUNCTION PANEL (59423) (ALB,T.PRO,BILI T,BU/BC,ALT,AST,ALK PHOS)2020-08-22 11:12:00 Test Item Value Reference Range Interpretation Comments TOTAL BILI (test code = 7433424917) 0.6 mg/dL 0.1-1.1 BILI UNCON (test code = 6513161664) 0.2 mg/dL 0.1-1.1 BILI CONJ (test code = 9900594461) 0.0 mg/dL 0-0.3 T PROTEIN (test code = 8109285546) 6.0 g/dL 6.3-8.2 L ALBUMIN (test code = 3705444279) 2.8 g/dL 3.5-5 L ALK PHOS (test code = 1281209646) 222 U/L 34-122 H ALTv (test code = 1742-6) 27 U/L 5-50 AST(SGOT) (test code = 4376182544) 30 U/L 13-40 Lab Interpretation (test code = Abnormal 15612-1) [facility] GLUCOSE (AUTOMATED)2020-08-22 10:11:00 Test Item Value Reference Range Interpretation Comments POCT GLU (test code = 6318585233) 196 mg/dL 70-110 H Lab Interpretation (test code = Abnormal 69000-6) [facility] GLUCOSE (AUTOMATED)2020-08-22 07:15:00 Test Item Value Reference Range Interpretation Comments POCT GLU (test code = 6616191585) 183 mg/dL 70-110 H Lab Interpretation (test code = Abnormal 68243-9) [facility] GLUCOSE (AUTOMATED)2020-08-22 02:30:00 Test Item Value Reference Range Interpretation Comments POCT GLU (test code = 4968561104) 295 mg/dL 70-110 H Lab Interpretation (test code = Abnormal 92787-5) [facility] GLUCOSE (AUTOMATED)2020-08-21 23:46:00 Test Item Value Reference Range Interpretation Comments POCT GLU (test code = 8088977708) 258 mg/dL 70-110 H Lab Interpretation (test code = Abnormal 19886-7) [facility]anoC-REACTIVE [id number] 18:50:00 Test Item Value Reference Range Interpretation Comments CRP (test code = 0782122118) 15.5 mg/dL <0.8 H Lab Interpretation (test code = Abnormal 75469-7) [facility]POCT [facility]AUTOMATED)2020-08-21 18:21:00 Test Item Value Reference Range Interpretation Comments POCT GLU (test code = 6782068175) 297 mg/dL 70-110 H Lab Interpretation (test code = Abnormal 03738-4) [facility] PlanoETHANOL2020-11-09 16:24:00 Test Item Value Reference Range Interpretation Comments ALCOHOL (test code = <10 mg/dL 3069541839) JAMES (test code = Toxic Greater than or JAMES) equal to 80 mg/dL. NOTE: Whole blood values are approximately 10% to 15% lower than serum and plasma. [facility] PlanoGALV/CLC ONLY - URINE DRUG (IMMUNOASSAY) - 4 ER [id number] 15:36:00 Test Item Value Reference Range Interpretation Comments AMPHET (test code = Negative Negative 5481157251) Cocaine Metabolite (test Negative Negative code = 7713938859) OPIATES (test code = Presumptive Positive Negative A 9974762509) THC (test code = Negative Negative 7094473339) JAMES (test code = JAMES) Urine Drug Cutoff Ranges Amphetamine: ? 1,000 ng/mLCocaine: ? 150 ng/mLOpiates: ? 300 ng/mLCannabinoids: ?50 ng/mL The results are to be used only for medical (i.e., treatment) purposes. Unconfirmed screening results must not be used for non-medical purposes (e.g., employment testing, legal testing). Lab Interpretation (test Abnormal code = 27480-1) [facility] ONLY - SYPHILIS [id number] 15:04:00 Test Item Value Reference Range Interpretation Comments Syphilis IgG/IgM (test Non-reactive Non-reactive code = 10998-3) JAMES (test code = JAMES) Non-reactive - No serologic evidence of T. pallidum infection. Cannot exclude incubating or early syphilis. Submit a second specimen in 2-4 weeks if syphilis is clinically suspected. Equivocal - Further testing to follow. Reactive - Further testing to follow. Lab Interpretation (test Normal code = 02040-1) [facility] PlanoUrinalysis2020-11-09 14:52:00 Test Item Value Reference Range Interpretation Comments APPEARANCE (test code = Clear Clear 7218796864) COLOR (test code = Yellow Yellow 2316141195) PH (test code = 4.8-8.0 6780705141) SP GRAVITY (test code = 1.003-1.030 6851244968) GLU U QUAL (test code = 500 mg/dL Normal A 3918269159) BLOOD (test code = Negative Negative 0525266669) KETONES (test code = 20 mg/dL Negative A 8158413566) PROTEIN (test code = Negative Negative 2887-8) UROBILIN (test code = Normal Normal 3498655155) BILIRUBIN (test code = Negative Negative 0233812291) NITRITE (test code = Negative Negative 9984086175) LEUK RYAN (test code = Negative Negative 4656161995) RBC/HPF (test code = <1 See_Comment [Autom ated message] 8015229019) The system [employer] generated this result transmit ronan reference range : 0 - 3 HPF. The refe rence range was not u sed to interpret th is result as normal/abnormal . WBC/HPF (test code = See_Comment [Autom ated message] 4696850130) The system [employer] generated this result transmit ronan reference range : 0 - 5 HPF. The refe rence range was not u sed to interpret th is result as normal/abnormal . BACTERIA (test code = Negative Negative 8866831370) MUCOUS (test code = Slight Negative LPF A 1601520228) Lab Interpretation (test Abnormal code = 62969-7) [facility]anoACTIVATED PARTIAL THRMPLAS [id number] 13:45:00 Test Item Value Reference Range Interpretation Comments APTT Patient (test code = See_Comment [ Automated message] 3173-2) The system [employer] generated this result transmitted ref erence range: 26 - 36 Seconds. The re ference range was not u sed to interpret this result as normal/abnor mal. Lab Interpretation (test Normal code = 58769-8) [facility] 13:45:00 Test Item Value Reference Range Interpretation Comments POCT GLU (test code = 9443413680) 246 mg/dL 70-110 H Lab Interpretation (test code = Abnormal 33642-9) [facility] [id number] 12:32:00 Test Item Value Reference Range Interpretation Comments HIV Negative Negative Semi-quantitative (test code = 78415-4) JAMES (test code = Non-reactive for HIV-1 JAMES) antigen and HIV-1/HIV-2 antibodies. ?No laboratory evidence of HIV infection. ?Repeat in 2-4 weeks if acute HIV infection is suspected. [facility]CB WITH [id number] 12:18:00 Test Item Value Reference Range Interpretation [...] RDW-SD (test code = 44.4 fL 38.5-51.6 70790-3) RDW-CV (test code = 14.5 % 12.1-15.4 788-0) PLT (test code = See_Comment H [Automated 777-3) message] The sy stem which generated this result transmitted reference range : 150 - 328 10*3/ ?L. The reference r torito was not used to interpret this result as normal/abnormal . MPV (test code = 8.5 fL 9.8-13 L 06971-4) NRBC/100 WBC (test See_Comment [Automat ed code = 6263851117) message] The system which generated this result transmitted reference range : 0.0 - 10.0 /100 WBCs. The refer ence range was not u sed to interpret th is result as normal/abnormal . NRBC x10^3 (test code <0.01 See_Comment [Auto mated = 5974232543) message] The s ystem which generated this result transmitted reference range : 10*3/?L. The reference range was not used to interpret this result as normal/abnormal . GRAN MAT (NEUT) % 90.4 % (test code = 770-8) IMM GRAN % (test code 1.30 % = 9453627626) LYMPH % (test code = 7.1 % 736-9) MONO % (test code = 0.5 % 5905-5) EOS % (test code = 0.1 % 713-8) BASO % (test code = 0.6 % 706-2) GRAN MAT x10^3(ANC) 7.74 10*3/uL 1.99-6.95 H (test code = 8081519666) IMM GRAN x10^3 (test 0.11 10*3/uL 0-0.06 H code = 9540133714) LYMPH x10^3 (test code 0.61 10*3/uL 1.09-3.23 L = 731-0) MONO x10^3 (test code 0.04 10*3/uL 0.36-1.02 L = 742-7) EOS x10^3 (test code = <0.03 0.06-0.53 L 711-2) BASO x10^3 (test code 0.05 10*3/uL 0.01-0.09 = 704-7) POLYCHROMASIA (test 2+ See_Comment [Automa ronan code = 53197-9) message] The system which generated this result transmitted reference range : 2+. The referen ce range was not u sed to interpret th is result as normal/abnormal . BANDS (test code = Increased A 7570152210) Lab Interpretation Abnormal (test code = 85454-5) [facility] 11:48:00 Test Item Value Reference Range Interpretation Comments Procalcitonin (test 0.36 ng/mL <0.07 H code = 8885878906) JAMES (test code = JAMES) INTERPRETATION OF [...] lung abscess/empyema. For further information please refer to:[email or web address] Lab Interpretation Abnormal (test code = 38255-6) [facility]LAWVATE [id number] 10:53:00 Test Item Value Reference Range Interpretation Comments LDH (test code = 3918517792) 351 U/L 300-600 Lab Interpretation (test code = Normal 20348-0) [facility]SEDIMENTATION [id number] 10:07:00 Test Item Value Reference Range Interpretation Comments ESR (test code = See_Comment H [Automated message] 2103744033) The system [employer] generated this result transmitted ref erence range: 0 - 10 m m/HR. The reference r torito was not used to interpret this result as normal/abnor mal. Lab Interpretation (test Abnormal code = 54384-6) [facility]POWV GLUCOSE (AUTOMATED)2020-08-21 09:45:00 Test Item Value Reference Range Interpretation Comments POCT GLU (test code = 0377953918) 287 mg/dL 70-110 H Lab Interpretation (test code = Abnormal 98461-8) [facility]Glycosylated Hemoglobin (A1C)2020-08-21 09:29:00 Test Item Value Reference Range Interpretation Comments HGB A1C (test code = 4548-4) 9.8 % 4-6 H Lab Interpretation (test code = Abnormal 79985-8) [facility]COVID-19 (ID NOW RAPID TESTING)2020-08-21 09:13:00 Test Item Value Reference Range Interpretation Comments SARS-CoV-2 Rapid ID NOW Not Detected Not Detected (test code = 14611-5) JAMES (test code = JAMES) ID NOW COVID-19 Assay is an isothermal nucleic acid amplification test intended for the qualitative detection of nucleic acid from SARS-CoV-2 viral RNA in nasopharyngeal (DIDACTIC INSTRUCTOR) specimens. It is used under Emergency Use [...] indicated. Lab Interpretation Normal (test code = 75026-0) [facility]anoProthrombin Time / [id number] 08:59:00 Test Item Value Reference Range Interpretation Comments PROTIME PATIENT (test See_Comment H [Auto mated message] code = 5964-2) The system [employer] generated this result transmitted ref erence range: 10.1 - 1 2.6 Seconds. The reference range was not used to int erpret this result as normal/abnormal . INR (test code = 6301-6) Nor mal INR <1.1; Warfarin Therap eutic range 2.0 to 3. 0 or 2.5 to 3.5, dep ending upon the indica tions. Lab Interpretation (test Abnormal code = 24842-7) [facility]anoaPTT2020-11-09 08:59:00 Test Item Value Reference Range Interpretation Comments APTT Patient (test code = See_Comment [ Automated message] 3173-2) The system [employer] generated this result transmitted ref erence range: 26 - 36 Seconds. The re ference range was not u sed to interpret this result as normal/abnor mal. Lab Interpretation (test Normal code = 45883-5) [facility]BAS[facility] METABOLIC PANEL (NA, K, CL, CO2, GLUCOSE, BUN, CREATININE, CA)2020-08-21 08:52:00 Test Item Value Reference Range Interpretation Comments NA (test code = 136 mmol/L 135-145 6741548137) K (test code = 4.3 mmol/L 3.5-5 5949988480) CL (test code = 104 mmol/L 98-108 3493214484) CO2 TOTAL (test code = 24 mmol/L 23-31 1912851402) AGAP (test code = 2-16 0485012257) BUN (test code = 8 mg/dL 7-23 9865974105) GLUCOSE (test code = 308 mg/dL 70-110 H 8055857701) CREATININE (test code = 0.72 mg/dL 0.6-1.25 9807873726) CALCIUM (test code = 7.8 mg/dL 8.6-10.6 L 9691371258) eGFR Calculation mL/min/1.73m2 (Non-) (test code = 2994597386) eGFR Calculation mL/min/1.73m2 () (test code = 2006586817) JAMES (test code = JAMES) Association of [...] tests). Lab Interpretation Abnormal (test code = 67494-2) [facility]anoHEPATIC FUNCTION PANEL (09729) (ALB,T.PRO,BILI T,BU/BC,ALT,AST,ALK PHOS)2020-08-21 08:52:00 Test Item Value Reference Range Interpretation Comments TOTAL BILI (test code = 1562939883) 0.8 mg/dL 0.1-1.1 BILI UNCON (test code = 5340139000) 0.3 mg/dL 0.1-1.1 BILI CONJ (test code = 2354216884) 0.0 mg/dL 0-0.3 T PROTEIN (test code = 1522838876) 5.7 g/dL 6.3-8.2 L ALBUMIN (test code = 1613871771) 2.7 g/dL 3.5-5 L ALK PHOS (test code = 2407639781) 245 U/L 34-122 H ALTv (test code = 1742-6) 37 U/L 5-50 AST(SGOT) (test code = 4870078795) 43 U/L 13-40 H Lab Interpretation (test code = Abnormal 06634-9) [facility]
[2021-12-12] MEDS ORDERED: HYDROCODONE/APAP 5/325 MG TAB ONE (02:58)
--- NOTE | 2021-12-12 02:58 | EDPHYS ---
Physician Documentation [facility] Name: Kiel Ngo Age: 71 yrs Sex: Male : 1950 Arrival Date: 12/12/2021 Time: 02:40 Bed 20 Private MD: ED Physician Michael Bosch HPI: 12/12 02:44 This 71 yrs old Male presents to ER via EMS with complaints of Leg Pain, Arm Pain. rn 02:44 Pt reports came in for increased pain to right arm and right leg, chronic, no acute rn injury. Reports sees pain management and has increased his dilaudid frequency so running out early. We have had multiple discussions in past regarding pain management. Pt also reports seen here yesterday, told had chronic stroke on CT of unknown age, told to f/u with Dr. Nugent and take aspirin, patient asks if he can be admitted to hospital for neurology consultation because he has difficulty with transport to clinics. Denies any new focal weakness or neurological deficits. . Onset: The symptoms/episode began/occurred at an unknown time. Severity of symptoms: At their worst the symptoms were moderate in the emergency department the symptoms are unchanged. The patient has experienced similar episodes in the past, chronically. The patient has been recently seen at the [facility] Emergency Department. Historical: - Allergies: 02:43 Demerol; sf1 02:43 metformin; sf1 02:43 Morphine; sf1 - PMHx: 02:43 Atrial fibrillation; chronic back pain; Chronic right leg pain; neuropathy; sf1 - PSHx: 02:43 back sx; PANCREAS SX; R. Ankle SX; sf1 - Immunization history:: Flu vaccine is not up to date. - Social history:: Smoking status: Patient denies any tobacco usage or history of. Patient/guardian denies using alcohol, street drugs. - Family history:: not pertinent. - Hospitalizations: : No recent hospitalization is reported. ROS: 02:44 Constitutional: Negative for fever, chills, and weight loss, Eyes: Negative for injury, rn pain, redness, and discharge, Neck: Negative for injury, pain, and swelling, Cardiovascular: Negative for chest pain, palpitations, and edema, Respiratory: Negative for shortness of breath, cough, wheezing, and pleuritic chest pain, Abdomen/GI: Negative for abdominal pain, nausea, vomiting, diarrhea, and constipation, Back: Negative for injury and pain, MS/Extremity: + chronic right arm and leg pain Skin: Negative for injury, rash, and discoloration, Neuro: Negative for headache, weakness, numbness, tingling, and seizure. Exam: 02:44 Constitutional: This is a well developed, well nourished patient who is awake, alert, rn and in no acute distress. Head/Face: Normocephalic, atraumatic. Eyes: Periorbital areas with no swelling, redness, or edema. Cardiovascular: Regular rate and rhythm. No pulse deficits. Respiratory: No increased work of breathing, no retractions or nasal flaring. Abdomen/GI: Soft, non-tender Skin: Warm, dry, small healing skin tears to right mid arm. MS/ Extremity: Pulses equal, no cyanosis. Neurovascular intact. Full, normal range of motion. Equal circumference. Neuro: Awake and alert, GCS 15, oriented to person, place, time, and situation. Cranial nerves II-XII grossly intact. Motor strength 5/5 bilateral upper ext. Sensory grossly intact. Motor strength 3+/5 bilateral lower ext and equal. Vital Signs: 02:41 BP 136 / 73; Pulse 72; Resp 18; Temp 97.9(T); Pulse Ox 99% ; Pain 10/10; sf1 02:45 Weight 83.91 kg; Height 5 ft. 11 in. (180.34 cm); sf1 03:04 BP 155 / 83; Pulse 71; Pulse Ox 100% ; sf1 02:45 Body Mass Index 25.80 (83.91 kg, 180.34 cm) sf1 MDM: 02:40 Patient medically screened. rn 02:54 Differential Diagnosis chronic pain, subacute infarction, chronic infarction. Data rn reviewed: vital signs, nurses notes, old medical records, and as a result, I will discharge patient. Counseling: I had a detailed discussion with the patient and/or guardian regarding: the historical points, exam findings, and any diagnostic results supporting the discharge/admit diagnosis, the need for outpatient follow up, to return to the emergency department if symptoms worsen or persist or if there are any questions or concerns that arise at home. Special discussion: I discussed with the patient/guardian in detail that at this point there is no indication for admission to the hospital. It is understood, however, that if the symptoms persist or worsen the patient needs to return immediately for re-evaluation. Based on the history and exam findings, there is no indication for further emergent testing or inpatient evaluation. I discussed with the patient/guardian the need to see the neurologist for further evaluation of the symptoms. ED course: NO acute neurological symptoms, ct yesterday shows most likely chronic frontal CVA, no indication for emergent admission, patient was wanting to be admitted for simplicity of seeing neurology without transport. Already taking anticoagulation. Will dc home. Gave norco for pain but told him would not give IV narcotic meds. . Administered Medications: 02:58 Drug: [place] (HYDROcodone-acetaminophen) 5 mg-325 mg 1 tabs Route: PO; sf1 Disposition Summary: 12/12/21 02:57 Discharge Ordered Location: Home rn Problem: chronic rn Symptoms: are unchanged rn Condition: Stable rn Diagnosis - Chronic pain, not elsewhere classified rn Followup: rn - With: Pascual Nugent MD - When: As needed - Reason: Recheck today's complaints, Re-evaluation by your physician Discharge Instructions: - Discharge Summary Sheet rn - Chronic Pain, Adult rn Forms: - Medication Reconciliation Form rn - Thank You Letter rn - Antibiotic intelligence intern - Prescription Opioid Use rn Signatures: Michael Bosch MD MD rn Fillers, Samantha, RN RN sf1
--- NOTE | 2021-12-12 02:58 | ER ---
Nurse's Notes [facility] Name: Kiel Ngo Age: 71 yrs Sex: Male : 1950 Arrival Date: 12/12/2021 Time: 02:40 Bed 20 Private MD: Diagnosis: Chronic pain, not elsewhere classified Presentation: 12/12 02:41 Chief complaint: Patient states: pain to right leg and right arm, chronic pain. sf1 Coronavirus screen: Vaccine status: Patient reports being unvaccinated. Ebola Screen: Patient negative for fever greater than or equal to 101.5 degrees Fahrenheit, and additional compatible Ebola Virus Disease symptoms Patient denies exposure to infectious person. Patient denies travel to an Ebola-affected area in the 21 days before illness onset. Initial Sepsis Screen: Does the patient meet any 2 criteria? No. Patient's initial sepsis screen is negative. Does the patient have a suspected source of infection? No. Patient's initial sepsis screen is negative. Risk Assessment: Do you want to hurt yourself or someone else? Patient reports no desire to harm self or others. Onset of symptoms was December 12, 2021. 02:41 Method Of Arrival: EMS: [facility] sf1 02:41 Acuity: JOZEF 4 sf1 Triage Assessment: 02:43 General: Appears in no apparent distress. Behavior is calm, cooperative, appropriate sf1 for age. Pain: Complains of pain in right arm and right leg Pain currently is 10 out of 10 on a pain scale. Historical: - Allergies: 02:43 Demerol; sf1 02:43 metformin; sf1 02:43 Morphine; sf1 - PMHx: 02:43 Atrial fibrillation; chronic back pain; Chronic right leg pain; neuropathy; sf1 - PSHx: 02:43 back sx; PANCREAS SX; R. Ankle SX; sf1 - Immunization history:: Flu vaccine is not up to date. - Social history:: Smoking status: Patient denies any tobacco usage or history of. Patient/guardian denies using alcohol, street drugs. - Family history:: not pertinent. - Hospitalizations: : No recent hospitalization is reported. Screenin:03 Abuse screen: Denies threats or abuse. Nutritional screening: No deficits noted. sf1 Tuberculosis screening: No symptoms or risk factors identified. Fall Risk None identified. Assessment: 03:03 Reassessment: No changes from previously documented assessment. sf1 Vital Signs: 02:41 BP 136 / 73; Pulse 72; Resp 18; Temp 97.9(T); Pulse Ox 99% ; Pain 10/10; sf1 02:45 Weight 83.91 kg; Height 5 ft. 11 in. (180.34 cm); sf1 03:04 BP 155 / 83; Pulse 71; Pulse Ox 100% ; sf1 02:45 Body Mass Index 25.80 (83.91 kg, 180.34 cm) sf1 ED Course: 02:40 Patient arrived in ED. rn 02:40 Michael Bosch MD is Attending Physician. rn 02:41 Larisa Giles RN is Primary Nurse. sf1 02:43 Triage completed. sf1 02:43 Arm band placed on right wrist. sf1 02:56 Pascual Nugent MD is Referral Physician. rn 03:03 No provider procedures requiring assistance completed. Patient did not have IV access sf1 during this emergency room visit. Administered Medications: 02:58 Drug: [place] (HYDROcodone-acetaminophen) 5 mg-325 mg 1 tabs Route: PO; sf1 Outcome: 02:57 Discharge ordered by . rn 03:38 Patient left the ED. sf1 Signatures: Michael Bosch MD MD rn Fillers, Samantha, RN RN sf1
[2021-12-12 03:43] VITALS: TEMP 97.9
[2021-12-12 03:44] VITALS: BP 155/83; O2SAT 100
== END 2021-12-12 03:38 | disposition home or self-care (01) ==
LOC: ER 02:38
DX: G89.29 Other chronic pain (principal); I48.91 Unspecified atrial fibrillation; Z88.5 Allergy status to narcotic agent; Z88.8 Allergy status to other drugs, medicaments and biological substances
CPT/HCPCS: 99283

== ENCOUNTER 2021-12-14 09:10 | Emergency (ER) | payer OTHER ==
--- OUTSIDE RECORDS SUMMARY | 2021-12-14 09:19 | XMS REPORT | Continuity of Care Document ---
:1950 Author Organization [facility] t Address [address] [place] [address] Dr. [address]. [address] [place] [address] Care Team Providers Name Role Phone Edy [...] Expiration Date S ource MEDICARE PART A [id number] 2007 \\T\\ B 00:00:00 [employer] INDEMNITY [id number] 2016 00:00:00 MEDICARE PART A [id number] 2014 \\T\\ B - MEDICARE 00:00:00 INDEMNITY/TRADITIO [id number] NAL CHOICE - [employer] 00:00:00 Problems Condition [...] ents Source Name Type Date Date Clinician [place] Prop[facility] Active Rash 2020- Univers ty to [...] vers NE INGREDI 3-16 ity of 00:00: [place] 00 [facility] Branch GLIMEPIR DRUG Active Hives Univers EFREN INGREDI 3-16 ity of 00:00: [place] 00 Medical Branch METFORMI DRUG Active ITCHING Univers N INGREDI 3-16 ity of 00:00: [place] 00 Medical Branch Social History Social Habit Start Date Stop Date Quantity Comments Source Exposure to Not sure [place] of SARS-CoV-2 [facility] (event) Branch History of Chews Tobacco University of tobacco use [facility] History SDOH 2020-11-17 2020-11-17 5 University o f Financial 00:00:00 00:00:00 [facility] History [facility] Food 2020-11-17 2020-11-17 1 Univers ity of Worry 00:00:00 00:00:00 [facility] History [facility] Food 2020-11-17 2020-11-17 1 Univers ity of Scarcity 00:00:00 00:00:00 [facility] History [facility] 2020-11-17 2020-11-17 1 University o f Transport Med 00:00:00 00:00:00 [facility] al Branch History [facility] 2020-11-17 2020-11-17 1 University o f Transport Non-Med 00:00:00 00:00:00 [facility] edical Branch Education 2020-11-16 2020-11-16 21 [place] of 00:00:00 00:00:00 [facility] Alcohol intake 2020-11-16 2020-11-16 Ex-drinker [place] of 00:00:00 00:00:00 (finding) [facility] Tobacco use and 2020-08-21 2020-08-21 Former user Universi ty of exposure 00:00:00 00:00:00 [facility] Tobacco Comment 2020-08-21 2020-08-21 quit 10 years Univer sity of 00:00:00 00:00:00 ago, started in [place] Med ical 2nd year of Branch college (~40 years) Alcohol Comment 2020-08-21 2020-08-21 Used to have 2-3 Uni versity of 00:00:00 00:00:00 six-packs of [place] Medica l beer daily x 20 Branch years, quit 2005 History [facility] 2020-08-21 2020-08-21 99 University o f Alcohol Frequency 00:00:00 00:00:00 [place] M edical Branch History SDSC 2020-08-21 2020-08-21 99 [place] o f Alcohol Std 00:00:00 00:00:00 [place] Medical Drinks Branch History SDSC 2020-08-21 2020-08-21 99 University o f Alcohol Binge 00:00:00 00:00:00 [place] Medic al Branch Sex [birth year] Universit y of 00:00:00 00:00:00 [place] [facility] [place] Smoking Status Start Date Stop Date Source Never smoker [facility] Branch Medications Ordered Filled Start [...] by ity of tablet 16:47: mouth at [place] 18 bedtime. Medical Branch HYDROmorpho Yes 4mg [...] 0845, Until Discontinu ed, Routine amLODIPine Yes [id number] 10mg Take 1 Univers 10 mg 3-07 tablet by ity of tablet 00:00: mouth [place] 00 daily. Medical Branch clotrimazol Yes [id number] Apply to Univers e 1 % 3-07 face/ears, ity of topical 00:00: armpits, [place] cream 00 pannus and Medical back/any Branch other rash twice a day fluocinonid 0 Yes [id number] Apply to Univers e 0.05 % 3-07 scalp ity of solution 00:00: twice a [place] 00 day Medical Branch triamcinolo 0 Yes [id number] Apply to Univers ne 3-07 back, ity of acetonide 00:00: armpits [place] 0.1 % cream 00 and other Med ical affected Branch areas twice daily, please mix with clotrimazo le hydrOXYzine 0 Yes [id number] 10mg Take 1 Univers 10 mg 3-07 tablet by ity of tablet 00:00: mouth 2 00 (two) Medical times Branch daily. amLODIPine Yes [id number] 10mg Take 1 Univers 10 mg 3-07 tablet by ity of tablet 00:00: mouth 00 daily. Medical Branch clotrimazol 0 Yes [id number] Apply to Univers e 1 % 3-07 face/ears, ity of topical 00:00: armpits, [place] cream 00 pannus and Medical back/any Branch other rash twice a day fluocinonid 0 Yes [id number] Apply to Univers e 0.05 % 3-07 scalp ity of solution 00:00: twice a day Medical Branch triamcinolo Yes [id number] Apply to Univers ne 3-07 back, ity of acetonide 00:00: armpits [place] 0.1 % cream 00 and other Med ical affected Branch areas twice daily, please mix with clotrimazo le hydrOXYzine Yes [id number] 10mg Take 1 Univers 10 mg 3-07 tablet by ity of tablet 00:00: mouth 2 (two) Medical times Branch daily. amLODIPine Yes [id number] 10mg Take 1 Univers 10 mg 3-07 tablet by ity of tablet 00:00: mouth 00 daily. Medical Branch clotrimazol 0 Yes [id number] Apply to Univers e 1 % 3-07 face/ears, ity of topical 00:00: armpits, [place] cream 00 pannus and Medical back/any Branch other rash twice a day fluocinonid 2020-0 Yes [id number] Apply to Univers e 0.05 % 3-07 scalp ity of solution 00:00: twice a [place] 00 day Medical Branch triamcinolo 2020-0 Yes [id number] Apply to Univers ne 3-07 back, ity of acetonide 00:00: armpits [place] 0.1 % cream 00 and other Med ical affected Branch areas twice daily, please mix with clotrimazo le hydrOXYzine Yes [id number] 10mg Take 1 Univers 10 mg 3-07 tablet by ity of tablet 00:00: mouth 2 [place] 00 (two) Medical times Branch daily. amLODIPine Yes [id number] 10mg Take 1 Univers 10 mg 3-07 tablet by ity of tablet 00:00: mouth [place] 00 daily. Medical Branch clotrimazol Yes [id number] Apply to Univers e 1 % 3-07 face/ears, ity of topical 00:00: armpits, [place] cream 00 pannus and Medical back/any Branch other rash twice a day fluocinonid Yes [id number] Apply to Univers e 0.05 % 12-17 scalp ity of solution 00:00: twice a [place] 00 day Medical Branch triamcinolo Yes [id number] Apply to Univers ne 3-07 back, ity of acetonide 00:00: armpits [place] 0.1 % cream 00 and other Med ical affected Branch areas twice daily, please mix with clotrimazo le hydrOXYzine Yes [id number] 10mg Take 1 Univers 10 mg 3-07 tablet by ity of tablet 00:00: mouth 2 [place] 00 (two) Medical times Branch daily. cephALEXin 2020-2020- No [id number] 500mg Take 1 Univers 500 mg -04 14- capsule by ity of capsule 00:00: 05:59 mouth [place] 00 :00 every 6 Medical (six) Branch hours for 3 days. cephALEXin 2020-0 2020- No [id number] 500mg Take 1 Univers 500 mg 3-04 14-11 capsule by ity of capsule 00:00: 05:59 mouth [place] 00 :00 every 6 Medical (six) Branch hours for 3 days. hydrOXYzine 2020-2020- No [id number] 10mg Take 1 Univers 10 mg 3-04 14-07 tablet by ity of tablet 00:00: 00:00 mouth 2 [place] 00 :00 (two) Medical times Branch daily. morpHINE Yes 4mg 4 mg, Slow Uni vers injection 4 - IV Push, ity of mg 22:40: Q6HPRN, [place] 02 Starting Medical 12/16/20 Branch at 1640, [...] Until Discontinu ed, Routine amLODIPine 2020- No [id number] 10mg Take 1 Univers 10 mg 12-15 tablet by ity of tablet 00:00: 00:00 mouth [place] 00 :00 daily. Medical Branch HYDROmorpho No 1mg 1 mg, Univ ers ne 12-14 Oral, ity of (DILAUDID) 17:35: 15:18 Q6HPRN, [place] tablet 1 mg 30 :06 Starting Medi [facility] 12/14/20 Branch at 1135, Until Fri12/15/20 at 0918, Routine, Pain (scale 7-10) hydrOXYzine Yes 10mg 10 mg, [facility] ers (ATARAX) 12-14 Oral, BID, ity o f tablet 10 17:30: First dose [place] mg 00 on [facility] 12/14/20 at Branch 1130, Until Discontinu ed, Routine lisinopriL Yes 5mg 5 mg, Univer s (PRINIVIL,Z 12-14 Oral, ity of ESTRIL) 17:30: DAILY, [place] tablet 5 mg 00 First dose Me dical on [facility] 12/14/20 at 1130, Until Discontinu ed, Routine triamcinolo 2020- No [id number] Apply to [facility] [place] [facility] 12-14 back, ity of acetonide 00:00: 00:00 armpits [place] 0.1 % cream 00 :00 and other Med ical affected Branch areas twice daily, please mix with clotrimazo le clotrimazol 2020- No [id number] Apply to Univers e 1 % 12-14 face/ears, ity of topical 00:00: 00:00 armpits, [place] cream 00 :00 pannus and Medical back/any Branch other rash twice a day fluocinonid 2020- No [id number] Apply to Univers e 0.05 % 12-14 scalp ity of solution 00:00: 00:00 twice a [place] 00 :00 day Medical Branch hydrOXYzine 2020- No [id number] 10mg Take 1 Univers 10 mg 12-14 [...] IV Push, ity of (PF)) 10:07: Q6HPRN, [place] injection 4 28 Starting Medi jose c mg 12/13/20 Branch at 0407, Until Discontinu ed, Routine, Nausea and Vomiting (N/V) ondansetron 2020- No 4mg 4 mg, Slow Univers (ZOFRAN 12-13-03 IV Push, ity of (PF)) 04:55: 05:44 ONCE, 1 [place] injection 4 00 :00 dose, [facility] ical mg 12/12/20 at Branch 2300, Routine traMADoL 2020- No 50mg 50 mg, Univer s (ULTRAM) 3 03-03 Oral, ity of tablet 50 03:45: 03:34 ONCE, 1 [place] mg 00 :00 dose, [facility] 12/12/20 at Branch 2145, Routine insulin Yes 15U 15 Units, Unive rs glargine 12-12 Subcutaneo ity o f (LANTUS 15:00: us, DAILY, [place] U-100) 00 First dose Medical injection on [facility] 15 Units 12/12/20 at 0900, Until Discontinu ed hydrOXYzine 2020- No 10mg 10 mg, Uni vers (ATARAX) 12-12 03-02 Oral, ity of tablet 10 08:15: 07:33 ONCE, 1 [place] mg 00 :00 dose, [facility] 12/12/20 at Branch 0215, Routine mirtazapine Yes 7.5mg 7.5 mg, Un toi (REMERON) 3-02 Oral, QHS, ity of tablet 7.5 03:00: First dose [place] mg 00 on [facility] 12/11/20 at Branch 2100, Until Discontinu ed, Routine venlafaxine Yes 300mg 300 mg, Un toi XR (EFFEXOR 3-02 Oral, QHS, it y of XR) 24 hr 03:00: First dose [place] capsule 300 00 on [facility] Medica l mg 12/11/20 at Branch 2100, Until Discontinu ed, Routine fluocinonid Yes Topical, Un toi e (LIDEX) 3 BID, First ity of 0.05 % 02:00: dose on [place] solution 00 Fri12/11/20 Medic al at 2000, Branch Until Discontinu ed, Routine acetaminoph 2020- No 1{tbl} 1 tablet, Univers en-codeine 12-11 03-05 Oral, ity of (TYLENOL 23:23: 13:49 Q6HPRN, [place] #3) 300-30 43 :08 Starting Medic al mg tablet 1 Fri12/11/20 Br anch tablet at 1723, Until Fri12/15/20 at 0749, Routine, Pain (scale 4-6) enoxaparin Yes 40mg 40 mg, Unive rs (LOVENOX) 12-11 Subcutaneo ity of injection 23:00: us, DAILY, [place] 40 mg 00 First dose Medical on Fri [place] 12/11/20 at 1700, Until Discontinu ed, Routine [...] ed, Routine insulin Yes 5U 5 Units, [facility] s lispro 12-11 Subcutaneo ity of (human) 18:00: us, TID [place] (HumaLOG 00 MEALS, Medical U-100) First dose Branch injection 5 on [facility] Units 12/11/20 at 1200, Until Discontinu ed Polyethylen Yes 17g 17 g, [facility] [place] rs e Glycol 12-11 Oral, ity of 3350 17:47: [id number], [place] (MIRALAX) 05 Starting Medica l powder 17 g 12/11/20 Br anch at 1147, Until Discontinu ed, Routine, Constipati on acetaminoph Yes 650mg 650 mg, Un toi en 12-11 Oral, ity of (TYLENOL) 16:51: Q6HPRN, [place] tablet 650 28 Starting Medic al mg [...]
Duration of therapy: 72 hours sennosides- Yes [id number] 1{tbl} Take 1 [facility] docusate 2-09 tablet by ity of sodium 00:00: mouth 2 [place] 8.6-50 mg 00 (two) Medical per tablet times Branch daily. hydrocortis Yes [id number] Apply to [facility] one 2.5 % 11-21 affected ity of cream 00:00: area(s) 2 [place] 00 (two) Medical times Branch daily. blood sugar Yes [id number] Use to [facility] diagnostic 2 check ity of (FREESTYLE 00:00: blood [place] LITE 00 glucose Medical STRIPS) 4-5 times Branch strip daily. Polyethylen Yes [id number] 17g Take 1 Univers e Glycol 2-09 Packet by ity of 3350 17 00:00: mouth [place] gram powder 00 every 24 Medi jose c (twenty-fo Branch ur) hours as needed for Constipati on. sennosides- Yes [id number] 1{tbl} Take 1 Univers docusate 2-09 tablet by ity of sodium 00:00: mouth 2 [place] 8.6-50 mg 00 (two) Medical per tablet times Branch daily. hydrocortis 2020-0 Yes [id number] Apply to Univers one 2.5 % 2-09 affected ity of cream 00:00: area(s) 2 [place] 00 (two) Medical times Branch daily. blood sugar 2020-0 Yes [id number] Use to Univers diagnostic 11-21 check ity of (FREESTYLE 00:00: blood [place] LITE 00 glucose Medical STRIPS) 4-5 times Branch strip daily. Polyethylen 2020-0 Yes [id number] 17g Take 1 Univers e Glycol 2-09 Packet by ity of 3350 17 00:00: mouth [place] gram powder 00 every 24 Medi jose c (twenty-fo Branch ur) hours as needed for Constipati on. sennosides- 2020-0 Yes [id number] 1{tbl} Take 1 Univers docusate 2-09 tablet by ity of sodium 00:00: mouth 2 [place] 8.6-50 mg 00 (two) Medical per tablet times Branch daily. hydrocortis 2020-0 Yes [id number] Apply to Univers one 2.5 % 2-09 affected ity of cream 00:00: area(s) 2 [place] 00 (two) Medical times Branch daily. blood sugar 2020-0 Yes [id number] Use to [facility] diagnostic 11-21 check ity of (FREESTYLE 00:00: blood [place] LITE 00 glucose Medical STRIPS) 4-5 times Branch strip daily. Polyethylen 2020-0 Yes [id number] 17g Take 1 Univers e Glycol 2-09 Packet by ity of 3350 17 00:00: mouth [place] gram powder 00 every 24 Medi jose c (twenty-fo Branch ur) hours as needed for Constipati on. sennosides- 2020-0 Yes [id number] 1{tbl} Take 1 Univers docusate 2-09 tablet by ity of sodium 00:00: mouth 2 [place] 8.6-50 mg 00 (two) Medical per tablet times Branch daily. hydrocortis 2020-0 Yes [id number] Apply to Univers one 2.5 % 2-09 affected ity of cream 00:00: area(s) 2 [place] 00 (two) Medical times Branch daily. blood sugar Yes [id number] Use to [facility] diagnostic 11-21 check ity of (FREESTYLE 00:00: blood [place] LITE 00 glucose Medical STRIPS) 4-5 times Branch strip daily. Polyethylen Yes [id number] 17g Take 1 Univers e Glycol 11-21 Packet by ity of 3350 17 00:00: mouth [place] gram powder 00 every 24 Medi jose c (twenty-fo Branch ur) hours as needed for Constipati on. Insulin 2020- No [id number] 15U inject 15 Univers Glargine 11-21 Units ity of (LANTUS 00:00: 05:59 under the [place] SOLOSTAR 00 :00 skin every Medic al U-100 morning Branch INSULIN) for 30 100 unit/mL days. (3 mL) injection venlafaxine 2020- No [id number] 150mg Take 1 Univers XR 150 mg 11-21 capsule by ity of 24 hr 00:00: 05:59 mouth 3 [place] capsule 00 :00 (three) Medical times Branch daily for 30 days. Insulin 2020- No [id number] 15U inject 15 Univers Glargine 11-21 Units ity of (LANTUS 00:00: 05:59 under the [employer] SOLOSTAR 00 :00 skin every Medic al U-100 morning Branch INSULIN) for 30 100 unit/mL days. (3 mL) injection venlafaxine 2020- No [id number] 150mg Take 1 Univers XR 150 mg 11-21 capsule by ity of 24 hr 00:00: 05:59 mouth 3 [place] capsule 00 :00 (three) Medical times Branch daily for 30 days. triamcinolo 2020- No [id number] Apply to [facility] ne 11-21 area(s) 2 ity of acetonide 00:00: 00:00 (two) [place] 0.1 % cream 00 :00 times Medical daily. Branch cephALEXin 2020- No [id number] 1000mg Take 2 Univers 500 mg 11-21 capsules ity of capsule 00:00: 00:00 by mouth 3 [place] 00 :00 (three) Medical times Branch daily. doxycycline 2020- No [id number] 100mg Take 1 Univers hyclate 100 11-21 capsule by i ty of mg capsule 00:00: 00:00 mouth [place] 00 :00 every 12 Medical (twelve) Branch hours. lactobacill 2020- No [id number] 1{tbl} Take 1 Univers us 11-21 tablet by ity of acidophilus 00:00: 00:00 mouth 2 [place] 25 million 00 :00 (two) Medical cell -100 times Branch mg captab daily. bisacodyL 2020- No [id number] 10mg Insert 1 Univers 10 mg 11-21 Suppositor ity of suppository 00:00: 00:00 y into [place] 00 :00 rectum at Medical bedtime as Branch needed for Constipati on. ALPRAZolam 2020- No [id number] .25mg Take 1 Univers (XANAX) 11-21 tablet by ity of 0.25 mg 00:00: 00:00 mouth 2 [place] tablet 00 :00 (two) Medical times Branch daily. hydrOXYzine 2020- No [id number] 20mg Take 2 Univers 10 mg 11-21 [...] Units ity of (LANTUS 01:13: under the [place] SOLOSTAR) 36 skin. Medical 100 unit/mL Branch [...] Units ity of (LANTUS 01:13: under the [place] SOLOSTME) 36 skin. Medical 100 unit/mL Branch (3 mL) InPn INSULIN 2019-10 Yes 5U inject 5 Univer s ASPART 1-12 Units ity of (NOVOLOG 01:13: under the [facility] s FLEXPEN SC) 36 skin. Medical Branch ALPRAZolam 2019-10 Yes .25mg Take 0.25 U nivers (XANAX) 1-12 mg by ity of 0.25 mg 01:13: mouth 2 [place] tablet 36 (two) Medical times Branch daily. HYDROmorpho 2019-10 Yes 4mg Take 4 mg U nivers ne 4 mg 1-12 by mouth 2 ity of tablet 01:13: (two) [place] 36 times Medical daily. Branch HYDROMORPHO 2019-10 [...] Units ity of (LANTUS 01:13: under the [place] SOLOSTME) 36 skin. Medical 100 unit/mL Branch (3 mL) In INSULIN 2019- Yes 5U inject 5 Univer s ASPART 1-12 Units ity of (NOVOLOG 01:13: under the [facility] [place] [facility] FLEXPEN [place]) 36 skin. Medical Branch ALPRAZolam [...] Units ity of (LANTUS 01:13: under the [facility]) 36 skin. Medical 100 unit/mL Branch (3 mL) In INSULIN 2019- Yes 5U inject 5 Univer s ASPART 1-12 Units ity of (NOVOLOG 01:13: under the [facility] [place] [facility] FLEXPEN [place]) 36 skin. Medical Branch ALPRAZolam 2019- Yes [...] Units ity of (LANTUS 01:13: under the [place] SOLOSTAR) 36 skin. Medical 100 unit/mL Branch (3 mL) InPn INSULIN 2019-10 Yes 5U inject 5 Univer s ASPART 1-12 Units ity of (NOVOLOG 01:13: under the [facility] s FLEXPEN SC) 36 skin. Medical [...] Units ity of (LANTUS 01:13: under the [place] SOLOSTAR) 36 skin. Medical 100 unit/mL Branch [...] 34 :00 Medical Branch hydrocortis 2019- Yes [id number] Apply to Univers one 2.5 % 1-11 affected ity of cream 00:00: area(s) 2 [place] (two) Medical times Branch daily. hydrOXYzine 2019-10 Yes [id number] 20mg Take 2 Univers 10 mg 1-11 tablets by ity of tablet 00:00: mouth [place] 00 every 8 Medical (eight) Branch hours as needed for Itching or Anxiety. Polyethylen 2019-10 Yes [id number] 17g Take 1 Univers e Glycol 1-11 Packet by ity of 3350 17 00:00: mouth [place] gram powder 00 every 24 Medi jose c (twenty-fo Branch ur) hours as needed for Constipati on. hydrocortis 2019-10 Yes [id number] Apply to Univers one 2.5 % 1-11 affected ity of cream 00:00: area(s) 2 [place] (two) Medical times Branch daily. hydrOXYzine 2019- Yes [id number] 20mg Take 2 Univers 10 mg 1-11 tablets by ity of tablet 00:00: mouth [place] 00 every 8 Medical (eight) Branch hours as needed for Itching or Anxiety. Polyethylen 2019- Yes [id number] 17g Take 1 Univers e Glycol 1-11 Packet by ity of 3350 17 00:00: mouth [place] gram powder 00 every 24 Medi jose c (twenty-fo Branch ur) hours as needed for Constipati on. hydrocortis 2019- Yes [id number] Apply to Univers one 2.5 % 1-11 affected ity of cream 00:00: area(s) 2 [place] 00 (two) Medical times Branch daily. hydrOXYzine 2019- Yes [id number] 20mg Take 2 Univers 10 mg 1-11 tablets by ity of tablet 00:00: mouth [place] 00 every 8 Medical (eight) Branch hours as needed for Itching or Anxiety. Polyethylen 2020- Yes [id number] 17g Take 1 Univers e Glycol 1-11 Packet by ity of 3350 17 00:00: mouth [place] gram powder 00 every 24 Medi jose c (twenty-fo Branch ur) hours as needed for Constipati on. hydrocortis 2019- Yes [id number] Apply to Univers one 2.5 % 1-11 affected ity of cream 00:00: area(s) 2 [place] 00 (two) Medical times Branch daily. hydrOXYzine 2019- Yes [id number] 20mg Take 2 Univers 10 mg 1-11 tablets by ity of tablet 00:00: mouth [place] 00 every 8 Medical (eight) Branch hours as needed for Itching or Anxiety. Polyethylen 2019- Yes [id number] 17g Take 1 Univers e Glycol 1-11 Packet by ity of 3350 17 00:00: mouth [place] gram powder 00 every 24 Medi jose c (twenty-fo Branch ur) hours as needed for Constipati on. hydrocortis 2019- Yes [id number] Apply to Univers one 2.5 % 1-11 affected ity of cream 00:00: area(s) 2 [place] 00 (two) Medical times Branch daily. hydrOXYzine 2019- Yes [id number] 20mg Take 2 Univers 10 mg 1-11 tablets by ity of tablet 00:00: mouth [place] 00 every 8 Medical (eight) Branch hours as needed for Itching or Anxiety. Polyethylen 2019- Yes [id number] 17g Take 1 Univers e Glycol 1-11 Packet by ity of 3350 17 00:00: mouth [place] gram powder 00 every 24 Medi jose c (twenty-fo Branch ur) hours as needed for Constipati on. hydrocortis 2019- Yes [id number] Apply to Univers one 2.5 % 1-11 affected ity of cream 00:00: area(s) 2 [place] 00 (two) Medical times Branch daily. hydrOXYzine 2019- Yes [id number] 20mg Take 2 Univers 10 mg 1-11 tablets by ity of tablet 00:00: mouth [place] 00 every 8 Medical (eight) Branch hours as needed for Itching or Anxiety. Polyethylen 2020- Yes [id number] 17g Take 1 Univers e Glycol 1-11 Packet by ity of 3350 17 00:00: mouth [place] gram powder 00 every 24 Medi jose c (twenty-fo Branch ur) hours as needed for Constipati on. hydrocortis 2019-10 Yes [id number] Apply to [facility] one 2.5 % 1-11 affected ity of cream 00:00: area(s) 2 [place] 00 (two) Medical times Branch daily. hydrOXYzine 2019-10 Yes [id number] 20mg Take 2 Univers 10 mg 1-11 tablets by ity of tablet 00:00: mouth [place] 00 every 8 Medical (eight) Branch hours as needed for Itching or Anxiety. Polyethylen 2019-10 Yes [id number] 17g Take 1 Univers e Glycol 1-11 Packet by ity of 3350 17 00:00: mouth [place] gram powder 00 every 24 Medi jose c (twenty-fo Branch ur) hours as needed for Constipati on. triamcinolo 2019-10 2020- No [id number] Apply to [facility] [place] [facility] 10-23 area(s) 2 ity of acetonide 00:00: 05:59 (two) [place] 0.1 % cream 00 :00 times Medical daily for Branch 14 days. triamcinolo 2019-10 2020- No [id number] Apply to [facility] [place] [facility] 10-23 area(s) 2 ity of acetonide 00:00: 05:59 (two) [place] 0.1 % cream 00 :00 times Medical daily for Branch 14 days. triamcinolo 2019-10 2020- No [id number] Apply to [facility] [place] [facility] 10-23 area(s) 2 ity of acetonide 00:00: [...] Areas), Medical BID, First Branch dose on [facility] 08/21/20 at 2000, Until Discontinu ed, Routine triamcinolo 2019- Yes Topical, Un toi ne 1-10 BID, First ity of acetonide 02:00: dose on [place] (TRIDERM) 00 [facility] Medical 0.1 % cream 08/21/20 at Br anch 2000, Until Discontinu ed, Routine hydrOXYzine 2019-10 Yes 20mg 20 mg, Univ ers (ATARAX) 09 Oral, ity of tablet 20 17:39: Q8HPRN, [place] mg 12 Starting Medical [facility] Branch 08/21/20 at 1139, Until Discontinu ed, Routine, Itching, Anxiety sennosides- 2019-10 Yes 1{tbl} 1 tablet, Univers docusate 10-21 Oral, ity of sodium 15:00: DAILY, [place] (SENOKOT-S) 00 First dose Me dical 8.6-50 mg on [facility] Branch per tablet 08/21/20 at 1 tablet 0900, Until Discontinu ed, Routine hydrocortis 2019-10 2020- No Topical Un toi one 1 % 10-21 (Apply To ity of cream 15:00: 22:54 Affected [place] 00 :48 Areas), Medical DAILY, Branch First dose on Fri08/21/20 at 0900, Until Discontinu ed, Routine venlafaxine 2019-10 Yes 150mg 150 mg, Un toi XR (EFFEXOR 09 Oral, TID, it y of XR) 24 hr 14:00: First dose [place] capsule 150 00 on [facility] Medica l mg 08/21/20 at Branch 0800, Until Discontinu ed, Routine heparin 2019- Yes 5000U 5,000 Univers (porcine) -09 Units, ity of injection 14:00: Subcutaneo [place] 5,000 Units 00 us, Q12H, Med ical First dose Branch on [facility] 08/21/20 at 0800, Until Discontinu ed, Routine diphenhydrA 2019-10 2020- No 25mg 25 mg, Uni vers MINE 10-21 Oral, ity of (BENADRYL) 12:56: 17:39 Q8HPRN, [place] tablet 25 59 :43 Starting Medica l mg [facility] 08/21/20 at 0656, Until [facility] 08/21/20 at 1139, Routine, Itching, Mild Rash, Congestion /Allergies , alternate with hydroxyzin e hydrOXYzine 2019-10- No 10mg 10 mg, Uni vers (ATARAX) 10-21 Oral, ity of tablet 10 10:20: 12:57 Q6HPRN, [place] mg 22 :12 Starting [facility] 08/21/20 at 0420, Until [facility] 08/21/20 at 0657, Routine, Itching, Anxiety Sliding 2019-10 Yes Subcutaneo Univ ers Scale 09 us, Q4H, ity of Insulin - 10:00: First dose [place] Aspart 00 (after Medical (NOVOLOG) + last Branch Fsbg modificati Testing on) on [facility] 08/21/20 at 0400, Until Discontinu ed, Routine lidocaine 5 2019-10- No Topical, U nivers % ointment 10-21 ONCE, 1 ity o f 09:30: 09:14 dose, [facility] 00 :00 08/21/20 at [facility] 0330, Branch Routine Polyethylen 2019-10 Yes 17g 17 g, [facility] [place] rs e Glycol 10-21 Oral, ity of 3350 08:29: [id number], [place] (MIRALAX) 09 Starting Medica l powder 17 g [facility] 08/21/20 at 0229, Until Discontinu ed, Routine, Constipati on lanolin 2019-10 Yes Topical, Univer s alcohol-mo- 10-21 PRN, ity of w.pet-ceres 08:26: [place] (EUCERIN[place] 30 [facility] cream 08/21/20 at Branch 0226, Until Discontinu ed, Routine, Dermatitis /Rash ALPRAZolam 2019-10 Yes .25mg 0.25 mg, Un toi (XANAX) 10-21 Oral, ity of tablet 0.25 08:25: BIDPRN, Jeff as mg 41 Starting [facility] 08/21/20 at 0225, Until Discontinu ed, [...] (scale 1-3) sotalol 2019-10- No Take by [facility] rs (BETAPACE) 10-21 mouth ity of 240 mg 07:43: 00:00 every 12 [place] tablet 30 :00 (twelve) Medical hours. Branch blood sugar Yes Use to [employer] ers diagnostic 4-25 check ity of (FREESTYLE 00:00: blood [place] LITE 00 glucose Medical STRIPS) 4-5 times Branch strip daily. blood sugar Yes Use to [employer] [facility] diagnostic -25 check ity of (FREESTYLE 00:00: blood [place] LITE 00 glucose Medical STRIPS) 4-5 times Branch strip daily. blood sugar Yes Use to [employer] [place] [place] [facility] diagnostic -25 check ity of (FREESTYLE 00:00: blood [place] LITE 00 glucose Medical STRIPS) 4-5 times Branch strip daily. blood sugar Yes Use to [place] [place] [place] diagnostic -25 check ity of (FREESTYLE 00:00: blood [place] LITE 00 glucose Medical STRIPS) 4-5 times Branch strip daily. blood sugar Yes Use to [place] [place] [place] diagnostic -25 check ity of (FREESTYLE 00:00: blood [place] LITE 00 glucose Medical STRIPS) 4-5 times Branch strip daily. blood sugar Yes Use to [facility] ers diagnostic 4-25 check ity of (FREESTYLE [...] 13:00:00 148 mm[Hg] Univer sity of pressure [place] [facility] Diastolic blood 2021-08-22 13:00:00 84 mm[Hg] Unive rsity of pressure [facility] Heart rate 2021-08-22 13:00:00 103 /min [facility] Respiratory rate 2021-08-22 13:00:00 18 /min Univ ersity of [facility] Oxygen saturation in 2021-08-22 13:00:00 95 /min University of Arterial blood by [facility] Pulse oximetry Branch Body temperature 2021-08-22 12:22:00 36.72 [place] [facility] ersity of [facility] Branch Systolic blood 2020-12-17 18:35:00 139 mm[Hg] Univer sity of pressure [place] [facility] Diastolic blood 2020-12-17 18:35:00 87 mm[Hg] Unive rsity of pressure [place] [facility] [place] Heart rate 2020-12-17 18:35:00 110 /min [facility] Body temperature 2020-12-17 18:35:00 37.72 [place] [facility] ersity of [place] [facility] Respiratory rate 2020-12-17 18:35:00 18 /min Univ ersity of [place] [facility] Oxygen saturation in 2020-12-17 18:35:00 93 /min University of Arterial blood by [facility] Pulse oximetry Branch Body height 2020-12-12 08:21:00 180.3 cm [facility] Body weight 2020-12-12 08:21:00 103.42 kg [facility] BMI 2020-12-12 08:21:00 31.80 kg/m2 [facility] Systolic blood 2020-12-17 18:35:00 139 mm[Hg] Univer sity of pressure [place] [facility] Diastolic blood 2020-12-17 18:35:00 87 mm[Hg] Unive rsity of pressure [place] [facility] Heart rate 2020-12-17 18:35:00 110 /min Universi ty of [place] [facility] [place] Body temperature 2020-12-17 18:35:00 37.72 [place] Univ ersity of [place] [facility] Respiratory rate 2020-12-17 18:35:00 18 /min Univ ersity of [place] [facility] Oxygen saturation in 2020-12-17 18:35:00 93 /min University of Arterial blood by [place] [facility] Pulse oximetry Branch Body height 2020-12-12 08:21:00 180.3 cm Universi ty of [place] [facility] [place] Body weight 2020-12-12 08:21:00 103.42 kg Universi ty of [facility] BMI 2020-12-12 08:21:00 31.80 kg/m2 Universi ty of [place] [facility] Systolic blood 2020-08-23 19:27:00 140 mm[Hg] Univer sity of pressure [place] [facility] Diastolic blood 2020-08-23 19:27:00 79 mm[Hg] Unive rsity of pressure [place] [facility] Heart rate 2020-08-23 19:27:00 99 /min Universi ty of [facility] Body temperature 2020-08-23 19:27:00 36 [place] Univ ersity of [place] [facility] Respiratory rate 2020-08-23 19:27:00 18 /min Univ ersity of [place] [facility] Oxygen saturation in 2020-08-23 19:27:00 93 /min University of Arterial blood by [place] [facility] Pulse oximetry Branch Body weight 2020-08-21 07:20:00 104.962 kg Universi ty [facility] [place] [facility] BMI 2020-08-21 07:20:00 32.27 kg/m2 Universi ty [facility] [place] [facility] Systolic blood 2020-08-23 19:27:00 140 mm[Hg] Univer sity of pressure [place] [facility] Diastolic blood 2020-08-23 19:27:00 79 mm[Hg] Unive rsity of pressure [place] [facility] Heart rate 2020-08-23 19:27:00 99 /min Universi ty [facility] [place] [facility] Body temperature 2020-08-23 19:27:00 36 [place] [facility] Respiratory rate 2020-08-23 19:27:00 18 /min [facility] Oxygen saturation in 2020-08-23 19:27:00 93 /min [facility] Arterial blood by [facility] Pulse oximetry [place] Body weight 2020-08-21 07:20:00 104.962 kg [facility] BMI 2020-08-21 07:20:00 32.27 kg/m2 [facility] Procedures Procedure Date / Time Performing Clinician Source Performed POCT GLUCOSE (AUTOMATED) 2020-12-17 15:42:00 Harrison[facility]OLIC PANEL 2020-12-17 10:45:00 Paul Bean [facility] (NA, K, CL, CO2, GLUCOSE, [facility] Medica l Branch BUN, CREATININE, CA) CBC WITH DIFF 2020-12-17 10:45:00 Paul Bean [facility] POCT GLUCOSE (AUTOMATED) 2020-12-17 02:36:00 Harrison, Premal G Uni [facility] XR TIBIA FIBULA 2 VW LEFT 2020-12-16 23:38:00 Paul Bean U [facility] POCT GLUCOSE (AUTOMATED) 2020-12-16 23:20:00 Harrison, [facility]al [facility] PO[facility] GLUCOSE (AUTOMATED) 2020-12-16 20:10:00 Harrison, [facility] PO[facility] GLUCOSE (AUTOMATED) 2020-12-16 14:43:00 Harrison, [facility]al [facility] BASIC METABOLIC PANEL 2020-12-16 13:51:00 Paul Bean [facility] (NA, K, CL, CO2, GLUCOSE, [place] BUN, CREATININE, CA) CBC WITH DIFF 2020-12-16 13:51:00 Paul Bean [facility] POCT GLUCOSE (AUTOMATED) 2020-12-16 04:00:00 Harrison, Premal [facility] PO[facility] GLUCOSE (AUTOMATED) 2020-12-16 00:14:00 Harrison, Premal G Uni versity of [facility] CT CHEST PULMONARY 2020-12-15 22:29:38 Paul Bean [facility] ANGIOGRAM [facility] POCT GLUCOSE (AUTOMATED) 2020-12-15 19:26:00 Harrison, Premal G Uni versity of [facility] POCT GLUCOSE (AUTOMATED) 2020-12-15 15:13:00 Harrison, Premal G Uni versity of [facility] HB ECG ROUTINE & RHYTHM 2020-12-15 14:25:27 Cailin Romo [facility] Branch MAGNESIUM 2020-12-15 12:01:00 Paul Bean Sivakumar [facility] BASIC METABOLIC PANEL 2020-12-15 12:01:00 Paul Bean [facility] (NA, K, CL, CO2, GLUCOSE, [place] [facility] BUN, CREATININE, CA) CBC WITH DIFF 2020-12-15 12:01:00 Paul Bean Sivakumar [facility] POCT GLUCOSE (AUTOMATED) 2020-12-15 03:57:00 Harrison, Premal G Uni versity of [facility] POCT GLUCOSE (AUTOMATED) 2020-12-14 23:31:00 Harrison, Premal G Uni versity of [facility] POCT GLUCOSE (AUTOMATED) 2020-12-14 19:08:00 Harrison, Premal G Uni versity of [facility] POCT GLUCOSE (AUTOMATED) 2020-12-14 15:11:00 Harrison, Premal G Uni versity of [facility] POCT GLUCOSE (AUTOMATED) 2020-12-14 02:36:00 Harrison, Premal G Uni versity of [facility] POCT GLUCOSE (AUTOMATED) 2020-12-13 23:32:00 Harrison, Premal G Uni versity of [facility] POCT GLUCOSE (AUTOMATED) 2020-12-13 18:08:00 Harrison, Premal G Uni versity of [facility] BASIC METABOLIC PANEL 2020-12-13 15:39:00 Paul Bean [facility] (NA, K, CL, CO2, GLUCOSE, [place] [facility] BUN, CREATININE, CA) CBC WITH DIFF 2020-12-13 15:39:00 Paul Bean Sivakumar [facility] POCT GLUCOSE (AUTOMATED) 2020-12-13 14:06:00 Harrison, [facility] PO[facility] GLUCOSE (AUTOMATED) 2020-12-13 03:07:00 Harrison, [facility]al [facility] POCT GLUCOSE (AUTOMATED) 2020-12-12 23:52:00 Harrison, [facility]al [facility] POCT GLUCOSE (AUTOMATED) 2020-12-12 20:28:00 Harrison, [facility]al [facility] POCT GLUCOSE (AUTOMATED) 2020-12-12 19:14:00 Harrison, Premal [facility] POCT GLUCOSE (AUTOMATED) 2020-12-12 14:33:00 Harrison, Premal [facility] MAGNESIUM 2020-12-12 08:58:00 Paul Bean Sivakumar [facility] BASIC METABOLIC PANEL 2020-12-12 08:58:00 Paul Bean [facility] (NA, K, CL, CO2, GLUCOSE, [place] [facility] BUN, CREATININE, CA) CBC WITH DIFF 2020-12-12 08:58:00 Paul Bean Sivakumar [facility] US ABDOMEN LIMITED 2020-12-12 06:32:26 [facility] PO[facility] GLUCOSE (AUTOMATED) 2020-12-12 03:40:00 Harrison, Premal G Uni [facility] POCT GLUCOSE (AUTOMATED) 2020-12-12 00:06:00 Harrison, Premal G Uni [facility] XR HIPS 3 VW LEFT 2020-12-11 20:20:00 Darnell Beanaham Sivakumar [facility] HB ECG ROUTINE & RHYTHM 2020-12-11 20:04:06 Cailin Romo [facility] VITAMIN B6, PLASMA 2020-12-11 19:17:00 [facility] POCT GLUCOSE (AUTOMATED) 2020-12-11 19:06:00 Rene Harrison [facility] CREATINE KINASE 2020-12-11 18:22:00 Clarisse Hannon [facility] VITAMIN B12, LEVEL 2020-12-11 18:22:00 Paul Bean [facility] FOLATE 2020-12-11 18:22:00 Vikas [facility] THYROID STIMULATING 2020-12-11 18:22:00 Cailin Romo [facility] HORMONE [facility] PROCALCITONIN 2020-12-11 18:22:00 Vikas [facility] VITAMIN B1 (THIAMINE), 2020-12-11 18:22:00 Paul Bean Sivakumar [facility] WHOLE BLOOD [facility] CT HEAD WO CONTRAST 2020-12-11 14:07:35 Sweetie Stout [facility] URINALYSIS 2020-12-11 13:44:00 Singer [facility] URINE CULTURE 2020-12-11 13:44:00 [facility] COVID-19 (ID NOW RAPID 2020-12-11 12:31:00 Paco Lacey [facility] TESTING) [facility] LAB ONLY COVID 2020-12-11 12:31:00 Singer [facility] XR CHEST 1 VW 2020-12-11 12:07:24 Singer [facility] BLOOD CULTURE SCREEN 2020-12-11 12:02:00 Paco Lacey [facility] MAGNESIUM 2020-12-11 12:02:00 Paul Bean Sivakumar [facility] FERRITIN SERUM 2020-12-11 12:02:00 Darnell Beanaham Sivakumar [facility] COMP. METABOLIC PANEL 2020-12-11 12:02:00 Paco Lacey [facility] ([id number]) Medical Branch CBC WITH DIFF 2020-12-11 12:02:00 Singer [facility] LACTIC ACID WHOLE BLOOD 2020-12-11 12:02:00 Paco Lacey [facility] BLOOD CULTURE SCREEN 2020-12-11 11:42:00 Paco Lacey [facility] EMERGENCY SERVICES 2020-12-11 06:01:00 Doctor Tabitha [facility] AGREEMENTS AND [place] [facility] AUTHORIZATIONS HOSPITAL ADMISSION 2020-12-11 06:01:00 Doctor Tabitha [facility] Name [facility] HEALTH - OTHER 2020-11-11 06:01:00 Doctor Tabitha [facility] HEALTH - OTHER 2020-10-30 06:01:[address] [facility] Name Medical [place] EXTERNAL PROVIDER RECORDS 2020-09-01 06:01:00 Doctor Tabitha [facility] Name [facility] POCT GLUCOSE (AUTOMATED) 2020-08-23 18:09:00 Kelly Washington [facility] POCT GLUCOSE (AUTOMATED) 2020-08-23 14:14:00 Kelly Washington [facility] MAGNESIUM 2020-08-23 11:18:00 [facility] BASIC METABOLIC PANEL 2020-08-23 11:18:00 [facility] (NA, K, CL, CO2, GLUCOSE, Medica l Branch BUN, CREATININE, CA) CBC WITH DIFF 2020-08-23 11:18:00 [facility] POCT GLUCOSE (AUTOMATED) 2020-08-23 10:21:00 [facility] ([facility]) 2020-08-23 05:55:00 Kelly Washington [facility] POCT GLUCOSE (AUTOMATED) 2020-08-23 03:00:00 Kelly Washington [facility] POCT GLUCOSE (AUTOMATED) 2020-08-22 23:38:00 Kelly Washington [facility] POCT GLUCOSE (AUTOMATED) 2020-08-22 19:04:00 Kelly Washington [facility] POCT GLUCOSE (AUTOMATED) 2020-08-22 13:49:00 Kelly Washington [facility] MAGNESIUM 2020-08-22 10:10:00 [facility] 2020-08-22 10:10:00 Jill Aguila [facility] ([id number]) (ALB,T.PRO,BILI Medical Branch T,BU/BC,ALT,AST,ALK PHOS) BASIC METABOLIC PANEL 2020-08-22 10:10:00 [place], [facility] (NA, K, CL, CO2, GLUCOSE, Medica l Branch BUN, CREATININE, CA) LIPID PANEL ([id number])(TOTAL 2020-08-22 10:10:00 [place], [facility], HDL) CBC WITH DIFF 2020-08-22 10:10:00 [facility] POCT GLUCOSE (AUTOMATED) 2020-08-22 10:10:00 Kelly Washington [facility] POCT GLUCOSE (AUTOMATED) 2020-08-22 07:13:00 Kelly Washington [facility] POCT GLUCOSE (AUTOMATED) 2020-08-22 02:24:00 Kelly Washington [facility] POCT GLUCOSE (AUTOMATED) 2020-08-21 23:40:00 Kelly Washington [facility] POCT GLUCOSE (AUTOMATED) 2020-08-21 18:10:00 Kelly Washington [facility] POCT GLUCOSE (AUTOMATED) 2020-08-21 13:39:00 Kelly Washington [facility] ETHANOL 2020-08-21 12:35:00 Jos Quiroz [facility] ACTIVATED PARTIAL 2020-08-21 12:35:00 Padmini [facility] THRMPLAS [facility] GALV ONLY - SYPHILIS 2020-08-21 12:35:00 Padmini [facility] IGG/IGM [facility] LACTATE DEHYDROGENASE 2020-08-21 10:09:00 Ramya, [facility] GALV/CLC ONLY - URINE 2020-08-21 10:09:00 Jos Quiroz [facility] DRUG (IMMUNOASSAY) - 4 ER Medica l Branch PANEL URINALYSIS 2020-08-21 10:09:00 Ramya, [facility] URINE CULTURE 2020-08-21 10:09:00 Ramya, [facility] PROCALCITONIN 2020-08-21 10:09:00 [place], [facility] POCT GLUCOSE (AUTOMATED) 2020-08-21 09:41:00 Kelly Washington [facility] PROTHROMBIN TIME / INR 2020-08-21 08:32:00 Ramya, [facility] ACTIVATED PARTIAL 2020-08-21 08:32:00 Ramya, [facility] THRMPLAS [facility] C-REACTIVE PROTEIN 2020-08-21 08:31:00 [place], [facility] HEPATIC FUNCTION PANEL 2020-08-21 08:31:00 [place], [facility] ([id number]) (ALB,T.PRO,BILI [facility] Branch T,BU/BC,ALT,AST,ALK PHOS) BASIC METABOLIC PANEL 2020-08-21 08:31:00 Ramya, [facility] (NA, K, CL, CO2, GLU[facility] [place] BUN, CREATININE, CA) SEDIMENTATION RATE 2020-08-21 08:31:00 [place], [facility] CBC WITH DIFF 2020-08-21 08:31:00 Ramya, [facility] GLYCOSYLATED HEMOGLOBIN 2020-08-21 08:31:00 [place], [facility] (A1C) [facility] HIV 1/2 AG-AB WITH REFLEX 2020-08-21 08:31:00 [facility] (ID NOW RAPID 2020-08-21 08:20:00 Ramya, [facility] TESTING) Medical Branch LAB ONLY COVID 2020-08-21 08:20:00 Ramya, [facility] o f [facility] Encounters Start End Encounter Admission Attending Care Care Encounter Source Date/Time Date/Time Type Type Clinicians Facility Department ID 2020-08-21 Inpatient Shayy WASHINGTON [facility] KVNG [id number] Univers 01:07:00 KELLY cantu [facility] 2021-08-22 2021-08-22 Emergency X [facility] ERT [id number] Univers 06:21:00 08:02:00 SWEETIE cantu [facility] 2021-08-22 2021-08-22 [facility] [id number] Univers 06:21:00 08:02:00 Sweetie OREN [id number] i ty of [place] [id number] [facility] 084 Branch 2021-08-09 2021-08-09 Outpatient ZAKI, [facility] [id number] [facility] 10:27:03 10:27:03 ADRIANA lopez of Medicin e 2020-12-28 2020-12-28 Telephone [facility] [id number] 00:00:00 00:00:00 Calvin H PRIMARY [id number] CARE 4.2.7.2.686 PAVILLION [id number] 220 2020-12-28 2020-12-28 Telephone [facility] 1.2.840.114 [id number] Univers 00:00:00 00:00:00 Calvin H PRIMARY [id number] it y of C[place]2.7.2.686 [place] [facility] [id number] Hi dical 220 Branch 2020-12-19 2020-12-19 Transition Tuan Peters 1.2.840.114 [id number] 00:00:00 00:00:00 of Care Ruchi Braswell [id number] [place] 4.2.7.2.686 [id number] 403 2020-12-19 2020-12-19 Transition Tuan Peters 1.2.840.114 [id number] Univers 00:00:00 00:00:00 of Care Ruchi Braswell [id number] it y of [place]2.7.2.686 [place] [id number] [facility] 403 Branch 2020-12-11 2020-12-17 [facility] Paco Lacey 1.2.840.1 [id number] 05:11:00 16:00:00 Encounter Rene Harrisony [id number] [facility] 4.2.7.2.686 [id number] [facility] 2020-12-11 2020-12-17 [facility] 1.2.840.1 [id number] [facility] 05:11:00 16:00:00 Encounter Rene Harrison [id number] ity of [facility] 4.2.7.2.686 [place] [id number] [facility] 096 [place] 2020-12-11 2020-12-11 Emergency [facility] [id number] Univers 05:11:00 05:11:00 [facility] 2020-11-16 2020-11-16 Emergency X [facility] ERT [id number] Univers 09:31:00 09:31:00 [facility] 2020-11-11 2020-11-11 Orders Doctor BASILIA 1.2.840.114 [id number] 00:00:00 00:00:00 Only Unassigned, NATTY [id number] [place] 4.2.7.2.686 [id number] 009 2020-11-11 2020-11-11 Orders Doctor BASILIA 1.2.840.114 [id number] Univers 00:00:00 00:00:00 Only Unassigned, NATTY [id number] ity of [place] [facility] 4.2.7.2.686 Jeff as [id number] [facility] 009 [place] 2020-11-07 2020-11-07 Telephone Wilder [facility] [id number] 00:00:00 00:00:00 Angi Bosch [place] 350.1.13.10 [place] 4.2.7.2.686 Professio [id number] [address] 2020-11-07 2020-11-07 Telephone Hdz [facility] [id number] [facility] 00:00:00 00:00:00 Sendil Danitza [place] [id number] ity of [place].2.[place] Profess[place] [id number] [address] 2020-10-30 2020-10-30 Orders Doctor BASILIA 1.2.840.114 [id number] 00:00:00 00:00:00 Only Unassigned, NATTY [id number] [facility] 4.2.7.2.686 [id number] [facility] 2020-10-30 2020-10-30 Orders Doctor CUI 1.2.840.114 [id number] Univers 00:00:00 00:00:00 Only Unassigned, NATTY [id number] ity of [facility] [place] 4.2.7.2.686 Jeff as [id number] [address] 2020-09-26 2020-09-26 Telephone [facility] 1.2.840.114 [id number] 00:00:00 00:00:00 [facility] [id number] CLINICS 4.2.7.2.686 [id number] [facility] 2020-09-26 2020-09-26 Telephone [facility] 1.2.840.114 [id number] Univers 00:00:00 00:00:00 [facility] [id number] i ty of CL[place].2.[place] [phone] [address] 2020-09-01 2020-09-01 Orders Doctor CUI 1.2.840.114 [id number] 00:00:00 00:00:00 Only Unassigned, NATTY 350.1.13.10 [facility] 4.2.7.2.686 [id number] [id number] 2020-09-01 2020-09-01 Orders Doctor BASILIA 1.2.840.114 [id number] Univers 00:00:00 00:00:00 Only Unassigned, NATTY [id number] ity of [place] [facility] 4.2.7.2.686 Jeff as [id number] [facility] 009 Branch 2020-08-25 2020-08-25 Transition Tuan Peters 1.2.840.114 [id number] 00:00:00 00:00:00 of Care Ruchi Braswell [id number] [place] 4.2.7.2.686 [id number] [facility] 2020-08-25 2020-08-25 Transition Tuan Peters 1.2.840.114 [id number] [facility] 00:00:00 00:00:00 of Care Ruchi Garciay 350.1.13.10 it y of [place] [id number] [address] 2020-08-21 2020-08-23 [facility] Ayleen 1.2.840.114 [id number] 01:07:00 18:35:00 Encounter Kelly Amaya [id number] [facility] 4.2.7.2.686 [id number] [facility] 2020-08-21 2020-08-23 [facility] 1. 2.840.114 [id number] [facility] 01:07:00 18:35:00 Encounter Mukul Gallardo BebaSarbjit Amaya 350.1.13. 10 ity [facility] 4.2.7.2.686 Jeff as [phone] [address] Results Test Description Test Time Test Comments Results Result Comments Source POCT GLUCOSE (AUTOMATED) 2020-12-17 15:43:35 Test Item Value Reference Range Interpretation Comme nts POCT GLU (test code = 0742781926) 129 mg/dL 70-110 H Lab Interpretation (test code = 35979-1) Abnormal [facility] METABOLIC PANEL (NA, K, CL, CO2, GLUCOSE, BUN, CREATININE, CA)2020-12-17 11:45:07 Test Item Value Reference Range Interpretation Comments NA (test code = 137 mmol/L 135-145 8344559515) K (test code = 3.5 mmol/L 3.5-5.0 9097484874) CL (test code = 103 mmol/L 98-108 7358577223) CO2 TOTAL (test code = 26 mmol/L 23-31 6230700943) AGAP (test code = 2-16 9789659646) BUN (test code = 11 mg/dL 7-23 8233245740) GLUCOSE (test code = 175 mg/dL 70-110 H 1910978734) CREATININE (test code = 0.62 mg/dL 0.60-1.25 2934455548) CALCIUM (test code = 9.0 mg/dL 8.6-10.6 5580199402) eGFR Calculation mL/min/1.73m2 (Non-) (test code = 8787743819) eGFR Calculation mL/min/1.73m2 () (test code = 8597763496) JAMES (test code = JAMES) Association of [...] tests). Lab Interpretation Abnormal (test code = 42317-0) [facility] WITH [id number] 11:07:27 Test Item Value Reference Range Interpretation [...] RDW-SD (test code = 45.2 fL 38.5-51.6 58914-4) RDW-CV (test code = 16.9 % 12.1-15.4 H 788-0) PLT (test code = See_Comment H [Automated 777-3) message] The sy stem which generated this result transmitted reference range : 150 - 328 10*3/ ?L. The reference r torito was not used to interpret this result as normal/abnormal . MPV (test code = 8.1 fL 9.8-13.0 L 66427-9) NRBC/100 WBC (test See_Comment [Automat ed code = 7313851437) message] The system which generated this result transmitted reference range : 0.0 - 10.0 /100 WBCs. The refer ence range was not u sed to interpret th is result as normal/abnormal . NRBC x10^3 (test code <0.01 See_Comment [Auto mated = [id number]) message] The s ystem which generated this result transmitted reference range : 10*3/?L. The reference range was not used to interpret this result as normal/abnormal . GRAN MAT (NEUT) % 72.8 % (test code = 770-8) IMM GRAN % (test code 0.60 % = 1048608831) LYMPH % (test code = 18.4 % 736-9) MONO % (test code = 5.7 % 5905-5) EOS % (test code = 1.8 % 713-8) BASO % (test code = 0.7 % 706-2) GRAN MAT x10^3(ANC) 8.23 10*3/uL 1.99-6.95 H (test code = 9891132733) IMM GRAN x10^3 (test 0.07 10*3/uL 0.00-0.06 H code = 8150488707) LYMPH x10^3 (test code 2.08 10*3/uL 1.09-3.23 = 731-0) MONO x10^3 (test code 0.65 10*3/uL 0.36-1.02 = 742-7) EOS x10^3 (test code = 0.20 10*3/uL 0.06-0.53 711-2) BASO x10^3 (test code 0.08 10*3/uL 0.01-0.09 = 704-7) Lab Interpretation Abnormal (test code = 21940-6) [facility] 06:03:38 Test Item Value Reference Range Interpretation Comments POCT GLU (test code = 0662853711) 75 mg/dL 70-110 Lab Interpretation (test code = Normal 90377-5) [facility]6, [id number] 00:01:00 Test Item Value Reference Range Interpretation Comments VIT B6 (test code = 13.1 nmol/L 20.0-125.0 L INTERPRE TIVE 95006-4) INFORMATION: Vi tamin B6 (Pyridoxal 5-Phosphate) Pyridoxal 5'-phosphate me asured in a specimen collected follo wing an 8-hour or overnight fast accurately clara cates vitamin B6 nutritional sta tus. Non-fasting spe cimen concentration reflects recent vitamin intake. This test was develo ped and its perform ance characteristics determined by [facility]. I t has not been cleare d or approved by the [place] Food and Drug Administration. This test was perfor med in a CLIA certifie d laboratory and is intended for cl inical purposes.Perfor med By: Research Journalist[address] [place] [address] [id number] Director: Namrata Klein MD Lab Interpretation Abnormal (test code = 10030-6) [facility] TIBIA FIBULA 2 VW [id number] 23:57:09 Tricompartmental knee joint osteoarthrosis.XR TIBIA FIBULA [...] No acute fracture or dislocation.IMPRESSIONTricompartmental knee joint osteoarthrosis.[facility] GLUCOSE (AUTOMATED) 2020-12-16 23:27:00 Test Item Value Reference Range Interpretation Comments POCT GLU (test code = 0057367372) 114 mg/dL 70-110 H Lab Interpretation (test code = Abnormal 11046-8) [facility] GLUCOSE (AUTOMATED)2020-12-16 20:12:00 Test Item Value Reference Range Interpretation Comments POCT GLU (test code = 4794131725) 105 mg/dL 70-110 Lab Interpretation (test code = Normal 01475-5) [facility] GLUCOSE (AUTOMATED)2020-12-16 14:44:00 Test Item Value Reference Range Interpretation Comments POCT GLU (test code = 4619169816) 153 mg/dL 70-110 H Lab Interpretation (test code = Abnormal 12094-9) [facility] (NA, K, CL, CO2, GLUCOSE, BUN, CREATININE, CA)2020-12-16 14:23:00 Test Item Value Reference Range Interpretation Comments NA (test code = 138 mmol/L 135-145 6284298404) K (test code = 3.4 mmol/L 3.5-5.0 L 7940852647) CL (test code = 100 mmol/L 98-108 5074860701) CO2 TOTAL (test code = 31 mmol/L 23-31 8701099905) AGAP (test code = 2-16 1046703332) BUN (test code = 11 mg/dL 7-23 4400960674) GLUCOSE (test code = 162 mg/dL 70-110 H 6230984754) CREATININE (test code = 0.64 mg/dL 0.60-1.25 6853614718) CALCIUM (test code = 8.9 mg/dL 8.6-10.6 8664232903) eGFR Calculation mL/min/1.73m2 (Non-) (test code = 6481641074) eGFR Calculation mL/min/1.73m2 () (test code = 3397610668) JAMES (test code = JAMES) Association of [...] tests). Lab Interpretation Abnormal (test code = 78688-4) [facility] WITH [id number] 14:05:00 Test Item Value Reference Range Interpretation [...] RDW-SD (test code = 45.4 fL 38.5-51.6 56127-2) RDW-CV (test code = 17.0 % 12.1-15.4 H 788-0) PLT (test code = See_Comment H [Automated 777-3) message] The sy stem which generated this result transmitted reference range : 150 - 328 10*3/ ?L. The reference r torito was not used to interpret this result as normal/abnormal . MPV (test code = 8.0 fL 9.8-13.0 L 92298-1) NRBC/100 WBC (test See_Comment [Automat ed code = 5052278806) message] The system which generated this result transmitted reference range : 0.0 - 10.0 /100 WBCs. The refer ence range was not u sed to interpret th is result as normal/abnormal . NRBC x10^3 (test code <0.01 See_Comment [Auto mated = 8026990566) message] The s ystem which generated this result transmitted reference range : 10*3/?L. The reference range was not used to interpret this result as normal/abnormal . GRAN MAT (NEUT) % 70.0 % (test code = 770-8) IMM GRAN % (test code 0.70 % = 5265307074) LYMPH % (test code = 20.5 % 736-9) MONO % (test code = 7.1 % 5905-5) EOS % (test code = 1.0 % 713-8) BASO % (test code = 0.7 % 706-2) GRAN MAT x10^3(ANC) 9.44 10*3/uL 1.99-6.95 H (test code = 7446845019) IMM GRAN x10^3 (test 0.09 10*3/uL 0.00-0.06 H code = 8680505976) LYMPH x10^3 (test code 2.76 10*3/uL 1.09-3.23 = 731-0) MONO x10^3 (test code 0.96 10*3/uL 0.36-1.02 = 742-7) EOS x10^3 (test code = 0.13 10*3/uL 0.06-0.53 711-2) BASO x10^3 (test code 0.10 10*3/uL 0.01-0.09 H = 704-7) Lab Interpretation Abnormal (test code = 45789-8) [facility] - Peripheral # [id number] 13:01:00 Test Item Value Reference Range Interpretation Comments Blood Culture-Aerobic No organisms No growth Previo us (test code = 34934-5) isolated prelim inary verified result was Culture In Progress on 12/11/2020 at 100 1 CSTPrevious preliminary verified result was No growth a t 24 hours on 12/12/2020 at 070 1 CSTPrevious preliminary verified result was No growth a t 48 hours on 12/13/2020 at 070 1 CSTPrevious preliminary verified result was No growth a t 72 hours on 12/14/2020 at 070 1 BUS PERSON Blood No organisms No growth Previous Culture-Anaerobic isolated preliminar y (test code = 08317-2) verifi ed result was Culture In Progress on 12/11/2020 at 100 1 CSTPrevious preliminary verified result was No growth a t 24 hours on 12/12/2020 at 070 1 CSTPrevious preliminary verified result was No growth a t 48 hours on 12/13/2020 at 070 1 CSTPrevious preliminary verified result was No growth a t 72 hours on 12/14/2020 at 070 1 BUS PERSON Lab Interpretation Normal (test code = 42925-0) [facility] [id number] 13:01:00 Test Item Value Reference Range Interpretation Comments Blood Culture-Aerobic No organisms No growth Previo us (test code = 77490-7) isolated prelim inary verified result was Culture In Progress on 12/11/2020 at 100 1 CSTPrevious preliminary verified result was No growth a t 24 hours on 12/12/2020 at 070 1 CSTPrevious preliminary verified result was No growth a t 48 hours on 12/13/2020 at 070 1 CSTPrevious preliminary verified result was No growth a t 72 hours on 12/14/2020 at 070 1 BUS PERSON Blood No organisms No growth Previous Culture-Anaerobic isolated preliminar y (test code = 91734-0) verifi ed result was Culture In Progress on 12/11/2020 at 100 1 CSTPrevious preliminary verified result was No growth a t 24 hours on 12/12/2020 at 070 1 CSTPrevious preliminary verified result was No growth a t 48 hours on 12/13/2020 at 070 1 CSTPrevious preliminary verified result was No growth a t 72 hours on 12/14/2020 at 070 1 BUS PERSON Lab Interpretation Normal (test code = 12178-9) [facility] GLUCOSE (AUTOMATED)2020-12-16 04:01:00 Test Item Value Reference Range Interpretation Comments POCT GLU (test code = 8594038378) 156 mg/dL 70-110 H Lab Interpretation (test code = Abnormal 42823-5) [facility] GLUCOSE (AUTOMATED)2020-12-16 00:24:00 Test Item Value Reference Range Interpretation Comments POCT GLU (test code = 0601123366) 115 mg/dL 70-110 H Lab Interpretation (test code = Abnormal 56367-9) [facility] CHEST PULMONARY [id number] 23:34:55No pulmonary emboli. No interval change in [...] of intra and extrahepatic biliary du ctal dilatation.[facility] GLUCOSE (AUTOMATED) 2020-12-15 19:28:00 Test Item Value Reference Range Interpretation Comments POCT GLU (test code = 3334744954) 140 mg/dL 70-110 H Lab Interpretation (test code = Abnormal 28112-2) [facility]2021-[facility]-05 15:26:00 Test Item Value Reference Range Interpretation Comments MAGNESIUM (test code = 6870769449) 2.2 mg/dL 1.7-2.4 Lab Interpretation (test code = Normal 85822-0) [facility]2020-12-15 15:15:00 Test Item Value Reference Range Interpretation Comments POCT GLU (test code = 1297047488) 181 mg/dL 70-110 H Lab Interpretation (test code = Abnormal 09787-8) [facility] (NA, K, CL, CO2, GLUCOSE, BUN, CREATININE, CA)2020-12-15 13:07:00 Test Item Value Reference Range Interpretation Comments NA (test code = 136 mmol/L 135-145 0693410546) K (test code = 3.6 mmol/L 3.5-5.0 3092855715) CL (test code = 96 mmol/L 98-108 L 6252812063) CO2 TOTAL (test code = 29 mmol/L 23-31 1938984927) AGAP (test code = 2-16 4802683256) BUN (test code = 12 mg/dL 7-23 2916463778) GLUCOSE (test code = 183 mg/dL 70-110 H 5983358218) CREATININE (test code = 0.70 mg/dL 0.60-1.25 0795423949) CALCIUM (test code = 9.2 mg/dL 8.6-10.6 7945617139) eGFR Calculation mL/min/1.73m2 (Non-) (test code = 3215323653) eGFR Calculation mL/min/1.73m2 () (test code = 0262845073) JAMES (test code = JAMES) Association of [...] tests). Lab Interpretation Abnormal (test code = 12981-9) [facility] WITH [id number] 12:32:00 Test Item Value Reference Range Interpretation Comments WBC (test code = See_Comment H [Automated 9890-2) message] The system which generated this result transmit ronan reference range : 4.20 - 10.70 10*3/?L. The reference range was not used to interpret this result as normal/abnormal . RBC (test code = See_Comment H [Automated 279-8) message] The system which generated this result [...] RDW-SD (test code = 44.4 fL 38.5-51.6 88836-1) RDW-CV (test code = 17.7 % 12.1-15.4 H 788-0) PLT (test code = See_Comment H [Automated 777-3) message] The system which generated this result transmit ronan reference range : 150 - 328 10*3/ ?L. The reference range was not u sed to interpret th is result as normal/abnormal . MPV (test code = 8.1 fL 9.8-13.0 L 93113-5) NRBC/100 WBC (test See_Comment [Automat ed code = 0486862321) message] The system which generated this result transmit ronan reference range : 0.0 - 10.0 /100 WBCs. The reference range was not used to interpret this result as normal/abnormal . NRBC x10^3 (test code <0.01 See_Comment [Auto mated = 7205425137) message] The system which generated this result transmit ronan reference range : 10*3/?L. The reference range was not used to interpret this result as normal/abnormal . GRAN MAT (NEUT) % 74.5 % (test code = 770-8) IMM GRAN % (test code 0.70 % = 9653671291) LYMPH % (test code = 17.4 % 736-9) MONO % (test code = 6.8 % 5905-5) EOS % (test code = 0.2 % 713-8) BASO % (test code = 0.4 % 706-2) GRAN MAT x10^3(ANC) 11.99 10*3/uL 1.99-6.95 H (test code = 8517581719) IMM GRAN x10^3 (test 0.11 10*3/uL 0.00-0.06 H code = 1657105100) LYMPH x10^3 (test code 2.80 10*3/uL 1.09-3.23 = 731-0) MONO x10^3 (test code 1.10 10*3/uL 0.36-1.02 H = 742-7) EOS x10^3 (test code = 0.03 10*3/uL 0.06-0.53 L 711-2) BASO x10^3 (test code 0.06 10*3/uL 0.01-0.09 = 704-7) Lab Interpretation Abnormal (test code = 65670-0) [facility] GLUCOSE (AUTOMATED)2020-12-15 04:16:00 Test Item Value Reference Range Interpretation Comments POCT GLU (test code = 6231176850) 200 mg/dL 70-110 H Lab Interpretation (test code = Abnormal 41402-3) [facility]ITAMIN B1 (THIAMINE), WHOLE [id number] 00:30:00 Test Item Value Reference Range Interpretation Comments Vitamin B1, Whole 136 nmol/L 70-180 INTERPRETI VE INFORMATION: Blood (test code = Vitamin B 1, Whole Blood 80750-3) This assay júnior ures the concentration o [...] its performance characteristics determined by [facility]. I t has not been cleared or approved by the [place] Food and Drug Administration. This test was performed i n a CLIA certified labor atory and is intended for clinical purposes.Perfor med By: [facility] es[address] [place] [address] [id number] aboratory Director: Namrata Klein MD [facility] GLUCOSE (AUTOMATED)2020-12-14 23:35:00 Test Item Value Reference Range Interpretation Comments POCT GLU (test code = 7024028988) 151 mg/dL 70-110 H Lab Interpretation (test code = Abnormal 13718-9) [facility] GLUCOSE (AUTOMATED)2020-12-14 19:19:00 Test Item Value Reference Range Interpretation Comments POCT GLU (test code = 1818405173) 193 mg/dL 70-110 H Lab Interpretation (test code = Abnormal 94286-2) [facility] GLUCOSE (AUTOMATED)2020-12-14 15:22:00 Test Item Value Reference Range Interpretation Comments POCT GLU (test code = 2501856127) 221 mg/dL 70-110 H Lab Interpretation (test code = Abnormal 50652-1) [facility] GLUCOSE (AUTOMATED)2020-12-14 02:37:00 Test Item Value Reference Range Interpretation Comments POCT GLU (test code = 8828473537) 210 mg/dL 70-110 H Lab Interpretation (test code = Abnormal 44851-7) [facility] GLUCOSE (AUTOMATED)2020-12-13 23:33:00 Test Item Value Reference Range Interpretation Comments POCT GLU (test code = 9837880420) 182 mg/dL 70-110 H Lab Interpretation (test code = Abnormal 74396-7) [facility] GLUCOSE (AUTOMATED)2020-12-13 18:09:00 Test Item Value Reference Range Interpretation Comments POCT GLU (test code = 0918199706) 150 mg/dL 70-110 H Lab Interpretation (test code = Abnormal 01713-7) [facility] METABOLIC PANEL (NA, K, CL, CO2, GLUCOSE, BUN, CREATININE, CA)2020-12-13 16:27:00 Test Item Value Reference Range Interpretation Comments NA (test code = 136 mmol/L 135-145 5119284342) K (test code = 3.7 mmol/L 3.5-5.0 7572167717) CL (test code = 96 mmol/L 98-108 L 1262203935) CO2 TOTAL (test code = 29 mmol/L 23-31 7505300311) AGAP (test code = 2-16 5023847098) BUN (test code = 6 mg/dL 7-23 L 9973377517) GLUCOSE (test code = 212 mg/dL 70-110 H 7869738276) CREATININE (test code = 0.61 mg/dL 0.60-1.25 3969565087) CALCIUM (test code = 9.5 mg/dL 8.6-10.6 8516070823) eGFR Calculation mL/min/1.73m2 (Non-) (test code = 9951832026) eGFR Calculation mL/min/1.73m2 () (test code = 6051414096) JAMES (test code = JAMES) Association of [...] tests). Lab Interpretation Abnormal (test code = 13442-0) [facility] WITH [id number] 16:10:00 Test Item Value Reference Range Interpretation Comments WBC (test code = See_Comment H [Automated 5090-2) message] The sy stem which generated this [...] RDW-SD (test code = 43.3 fL 38.5-51.6 59729-6) RDW-CV (test code = 16.2 % 12.1-15.4 H 788-0) PLT (test code = See_Comment H [Automated 777-3) message] The sy stem which generated this result transmitted reference range : 150 - 328 10*3/ ?L. The reference r torito was not used to interpret this result as normal/abnormal . MPV (test code = 8.2 fL 9.8-13.0 L 63943-6) NRBC/100 WBC (test See_Comment [Automat ed code = 3223607710) message] The system which generated this result transmitted reference range : 0.0 - 10.0 /100 WBCs. The refer ence range was not u sed to interpret th is result as normal/abnormal . NRBC x10^3 (test code <0.01 See_Comment [Auto mated = 4870039889) message] The s ystem which generated this result transmitted reference range : 10*3/?L. The reference range was not used to interpret this result as normal/abnormal . GRAN MAT (NEUT) % 86.2 % (test code = 770-8) IMM GRAN % (test code 0.70 % = 2672483582) LYMPH % (test code = 10.2 % 736-9) MONO % (test code = 2.5 % 5905-5) EOS % (test code = 0.1 % 713-8) BASO % (test code = 0.3 % 706-2) GRAN MAT x10^3(ANC) 9.61 10*3/uL 1.99-6.95 H (test code = 9428135924) IMM GRAN x10^3 (test 0.08 10*3/uL 0.00-0.06 H code = 3322734013) LYMPH x10^3 (test code 1.14 10*3/uL 1.09-3.23 = 731-0) MONO x10^3 (test code 0.28 10*3/uL 0.36-1.02 L = 742-7) EOS x10^3 (test code = <0.03 0.06-0.53 L 711-2) BASO x10^3 (test code 0.03 10*3/uL 0.01-0.09 = 704-7) Lab Interpretation Abnormal (test code = 64092-8) [facility]2020-[facility]13 14:16:00 Test Item Value Reference Range Interpretation Comments POCT GLU (test code = 4741115379) 236 mg/dL 70-110 H Lab Interpretation (test code = Abnormal 19630-2) [facility] COVID [id number] 04:58:00COVID DMT InterpretationInterpretation/Recommendations: Molecular NAAT Tests for [...] COVID-19 testing the patient has had at [facility], including molecular NAAT testing (more commonly known as PCR testing and Rapid ID Now testing) and antibody testing. It does not take into account any testing that a patient has had outside of the [facility] medical record. [facility] LABORATORY SERVICESCOVID Resu [id number] Rapid ID NOW (no units) ? ? Date ? Value ? 12/11/2020 ? Not Detected ? ? ? 11/16/2020 ? Not Detected ? ? ? 08/21/2020 ?Not Detected ? [facility] 2020-12-13 03:11:00 Test Item Value Reference Range Interpretation Comments POCT GLU (test code = 7058679497) 171 mg/dL 70-110 H Lab Interpretation (test code = Abnormal 75833-6) [facility] GLUCOSE (AUTOMATED)2020-12-13 00:00:00 Test Item Value Reference Range Interpretation Comments POCT GLU (test code = 2451819182) 118 mg/dL 70-110 H Lab Interpretation (test code = Abnormal 10984-4) [facility] GLUCOSE (AUTOMATED)2020-12-12 20:29:00 Test Item Value Reference Range Interpretation Comments POCT GLU (test code = 4763725386) 173 mg/dL 70-110 H Lab Interpretation (test code = Abnormal 92094-7) [facility] ABDOMEN [id number] 19:56:17 1. ?Hepatic steatosis. However, limited evaluation [...] main portal veinwasevaluated with color Doppler imaging. Wood Drill Operator images were obtainedfor the record. COMPARISON: Ultrasound [...] portal vein wasevaluated with color Doppler imaging. Wood Drill Operator images were obtainedfor the record.COMPARISON: Ultrasound abdomen [...] study and agree with the abovereport. [facility]2020-12-12 19:24:00 Test Item Value Reference Range Interpretation Comments POCT GLU (test code = 4959752557) 230 mg/dL 70-110 H Lab Interpretation (test code = Abnormal 82588-1) [facility] CHEST 1 [id number] 15:16:46 Low lung volumes with mild perihilar [...] reviewed thisstudy and agree with theabove report.[facility]2020-12-12 14:34:00 Test Item Value Reference Range Interpretation Comments POCT GLU (test code = 0972206047) 225 mg/dL 70-110 H Lab Interpretation (test code = Abnormal 09640-1) [facility]URINE [id number] 13:28:00 Test Item Value Reference Range Interpretation Comments URINE CULTURE (test < 10,000 CFU/mL mixed code = 630-4) aerobic organisms - suggests endogenous microbial contamination [facility] (NA, K, CL, CO2, GLUCOSE, BUN, CREATININE, CA)2020-12-12 10:05:00 Test Item Value Reference Range Interpretation Comments NA (test code = 136 mmol/L 135-145 6578764330) K (test code = 3.5 mmol/L 3.5-5.0 9931083359) CL (test code = 100 mmol/L 98-108 9750389196) CO2 TOTAL (test code = 31 mmol/L 23-31 7311798887) AGAP (test code = 2-16 8503555288) BUN (test code = 7 mg/dL 7-23 8216158237) GLUCOSE (test code = 259 mg/dL 70-110 H 8971542007) CREATININE (test code = 0.63 mg/dL 0.60-1.25 3067001163) CALCIUM (test code = 8.5 mg/dL 8.6-10.6 L 2560777975) eGFR Calculation mL/min/1.73m2 (Non-) (test code = 2410109145) eGFR Calculation mL/min/1.73m2 () (test code = 6831987504) JAMES (test code = JAMES) Association of [...] tests). Lab Interpretation Abnormal (test code = 16380-4) [facility]oundMagnesium [id number] 10:05:00 Test Item Value Reference Range Interpretation Comments MAGNESIUM (test code = 0160254532) 1.9 mg/dL 1.7-2.4 Lab Interpretation (test code = Normal 62289-6) [facility] with [id number] 09:48:00 Test Item Value Reference Range Interpretation Comments WBC (test code = See_Comment [Automated 3756-2) message] The sy stem which generated this result transmitted reference range : 4.20 - 10.70 10*3/?L. The reference range was not used to interpret this result as normal/abnormal . RBC (test code = See_Comment [Automated 065-8) message] The sy stem which generated this [...] RDW-SD (test code = 46.0 fL 38.5-51.6 48716-9) RDW-CV (test code = 16.1 % 12.1-15.4 H 788-0) PLT (test code = See_Comment H [Automated 777-3) message] The sy stem which generated this result transmitted reference range : 150 - 328 10*3/ ?L. The reference r torito was not used to interpret this result as normal/abnormal . MPV (test code = 8.6 fL 9.8-13.0 L 71938-6) NRBC/100 WBC (test See_Comment [Automat ed code = 6843026521) message] The system which generated this result transmitted reference range : 0.0 - 10.0 /100 WBCs. The refer ence range was not u sed to interpret th is result as normal/abnormal . NRBC x10^3 (test code <0.01 See_Comment [Auto mated = 0392592437) message] The s ystem which generated this result transmitted reference range : 10*3/?L. The reference range was not used to interpret this result as normal/abnormal . GRAN MAT (NEUT) % 70.2 % (test code = 770-8) IMM GRAN % (test code 0.30 % = 8155054380) LYMPH % (test code = 18.8 % 736-9) MONO % (test code = 5.0 % 5905-5) EOS % (test code = 5.2 % 713-8) BASO % (test code = 0.5 % 706-2) GRAN MAT x10^3(ANC) 6.05 10*3/uL 1.99-6.95 (test code = 2767181097) IMM GRAN x10^3 (test 0.03 10*3/uL 0.00-0.06 code = 6367887538) LYMPH x10^3 (test code 1.62 10*3/uL 1.09-3.23 = 731-0) MONO x10^3 (test code 0.43 10*3/uL 0.36-1.02 = 742-7) EOS x10^3 (test code = 0.45 10*3/uL 0.06-0.53 711-2) BASO x10^3 (test code 0.04 10*3/uL 0.01-0.09 = 704-7) Lab Interpretation Abnormal (test code = 07358-5) [facility] GLUCOSE (AUTOMATED)2020-12-12 03:42:00 Test Item Value Reference Range Interpretation Comments POCT GLU (test code = 196 mg/dL 70-110 H Notifi ed Provider 2171819338) Lab Interpretation (test Abnormal code = 44079-3) [facility]OLATE2021-[facility] 02:24:00 Test Item Value Reference Range Interpretation Comments FOLATE SER (test code = 1723125250) 5.8 ng/mL 3.0-20.0 Lab Interpretation (test code = Normal 63615-8) [facility]oundVITAMIN B12, [id number] 00:55:00 Test Item Value Reference Range Interpretation Comments VIT B12 (test code = 844 pg/mL 240-930 3414646675) JAMES (test code = JAMES) Biotin has been reported to cause a positive bias, interpret results relative to patient's use of biotin. Lab Interpretation (test Normal code = 57582-2) [facility] GLUCOSE (AUTOMATED)2020-12-12 00:14:00 Test Item Value Reference Range Interpretation Comments POCT GLU (test code = 0174406033) 164 mg/dL 70-110 H Lab Interpretation (test code = Abnormal 69313-4) [facility]oundCREATINE [id number] 23:42:00 Test Item Value Reference Range Interpretation Comments CK (test code = 1779102633) <20 33-194 L Lab Interpretation (test code = Abnormal 99173-6) [facility] [place]YROID STIMULATING [id number] 23:17:00 Test Item Value Reference Range Interpretation Comments TSH (test code = See_Comment Biotin has been [id number]) reported to cau se a negative bias, interpret resul ts relative to pat ient's use of biotin. [Automated mess age] The system Clipik generated this result transmitted ref erence range: 0.45 - 4 .70 mIU/L. The refe rence range was not u sed to interpret this result as normal/abnor mal. Lab Interpretation (test Normal code = 34064-4) [facility] [place] [place] VW [id number] 21:41:53No appreciable fracture lines. RL: 6200 ICAL HISTORY:Pain. COMPARISON:none TECHNIQUE:XR HIPS 3 VW LEFT performed. Technical Quality: Adequate FINDINGS:There are no appreciable fracture lines or subluxations. ?There is grossanatomic alignment. ?No appreciable joint effusion. Moderate to severe hip joint space narrowing, with arthropathy. Marginalosteophytes and subchondral sclerosis. No osseous erosions. Vtmb, Radiant Results Inft User -12/11/2020 3:43 PM CSTCLINICAL HISTORY:Pain.COMPARISON:noneTECHNIQUE:XR HIPS 3 VW LEFT performed. Technical Quality: AdequateFINDINGS:There are no appreciable fracture lines or subluxations. There isgrossanatomic alignment. No appreciable joint effusion.Moderate to severe hip joint space narrowing, with arthropathy. Marginalosteophytes and subchondral sclerosis. No osseous erosions.IMPRESSIONNo appreciable fracture lines.RL: 6200 [facility] TexasPROCALCITONIN2021-03-01 20:00:00 Test Item Value Reference Range Interpretation Comments Procalcitonin (test 0.13 ng/mL <0.07 H code = 3813593195) JAMES (test code = JAMES) INTERPRETATION OF [...] lung abscess/empyema. For further information please refer to:[email or web address] Lab Interpretation Abnormal (test code = 48251-1) [facility]PO[facility] (AUTOMATED)2020-12-11 19:07:00 Test Item Value Reference Range Interpretation Comments POCT GLU (test code = 7658847930) 274 mg/dL 70-110 H Lab Interpretation (test code = Abnormal 90923-6) [facility] [place]MAGNESIUM2021-03-01 18:31:00 Test Item Value Reference Range Interpretation Comments MAGNESIUM (test code = 3406078939) 1.9 mg/dL 1.7-2.4 Lab Interpretation (test code = Normal 53197-9) [facility] [place]oundFERRITIN [id number] 18:31:00 Test Item Value Reference Range Interpretation Comments FERRITIN (test code = 178.0 ng/mL 18.0-464.0 5135752972) JAMES (test code = JAMES) Biotin has been reported to cause a negative bias, interpret results relative to patient's use of biotin. Lab Interpretation (test Normal code = 79269-4) [facility] [place]CT HEAD WO [id number] 14:36:47 No acute intracranial abnormality. Dilated ventricles [...] this study and agree with the abovereport.[facility] [place]oundURINALYSIS2021-03-01 14:28:00 Test Item Value Reference Range Interpretation Comments APPEARANCE (test code = Clear Clear 2470061882) COLOR (test code = Yellow Yellow 0932757686) PH (test code = 4.8-8.0 1371168677) SP GRAVITY (test code = 1.003-1.030 7166351813) GLU U QUAL (test code = 500 mg/dL Normal A 9508235287) BLOOD (test code = Negative Negative 0276339245) KETONES (test code = 5 mg/dL Negative A 6873846585) PROTEIN (test code = Negative Negative 2887-8) UROBILIN (test code = Normal Normal 9943550297) BILIRUBIN (test code = Negative Negative 7042133463) NITRITE (test code = Negative Negative 7142517721) LEUK YRAN (test code = Negative Negative 2122686972) RBC/HPF (test code = See_Comment [Autom ated message] 2119574649) The system Clipik generated this result transmit ronan reference range : 0 - 3 HPF. The refe rence range was not u sed to interpret th is result as normal/abnormal . WBC/HPF (test code = See_Comment [Autom ated message] 3215828860) The system Clipik generated this result transmit ronan reference range : 0 - 5 HPF. The refe rence range was not u sed to interpret th is result as normal/abnormal . BACTERIA (test code = Negative Negative 8420570559) MUCOUS (test code = Slight Negative LPF A 4323083490) SQ EPITH (test code = HPF 2362002864) Lab Interpretation (test Abnormal code = 06738-3) [facility]COVID-[facility] (ID NOW RAPID TESTING)2020-12-11 13:10:00 Test Item Value Reference Range Interpretation Comments SARS-CoV-2 Rapid ID NOW Not Detected Not Detected (test code = 38000-6) JAMES (test code = JAMES) ID NOW COVID-19 Assay is an isothermal nucleic acid amplification test intended for the qualitative detection of nucleic acid from SARS-CoV-2 viral RNA in nasopharyngeal (HIM CODER) specimens. It is used under Emergency Use [...] indicated. Lab Interpretation Normal (test code = 55706-5) [facility] [place]oundCOM. METABOLIC PANEL (02628)2020-12-11 12:29:00 Test Item Value Reference Range Interpretation Comments NA (test code = 136 mmol/L 135-145 4412829489) K (test code = 3.5 mmol/L 3.5-5.0 4544478203) CL (test code = 95 mmol/L 98-108 L 5247110450) CO2 TOTAL (test code = 35 mmol/L 23-31 H 9974906216) AGAP (test code = 2-16 1503176499) BUN (test code = 9 mg/dL 7-23 9036341940) GLUCOSE (test code = 329 mg/dL 70-110 H 4650912173) CREATININE (test code = 0.72 mg/dL 0.60-1.25 6486517742) TOTAL BILI (test code = 0.6 mg/dL 0.1-1.1 3325094799) CALCIUM (test code = 9.0 mg/dL 8.6-10.6 5699176437) T PROTEIN (test code = 6.8 g/dL 6.3-8.2 2657723846) ALBUMIN (test code = 3.8 g/dL 3.5-5.0 5869252965) ALK PHOS (test code = 288 U/L 34-122 H 8415328014) ALTv (test code = 46 U/L 5-50 2-6) AST(SGOT) (test code = 38 U/L 13-40 7572381013) eGFR Calculation mL/min/1.73m2 (Non-) (test code = 3875957907) eGFR Calculation mL/min/1.73m2 () (test code = 1661922395) JAMES (test code = JAMES) Association of [...] tests). Lab Interpretation Abnormal (test code = 66480-5) [facility] [place]oundLactic Acid Whole [id number] 12:23:00 Test Item Value Reference Range Interpretation Comments LACTIC ACID (test code = 2.09 mmol/L 0.50-2.20 5382019381) Lab Interpretation (test code = Normal 95904-7) [facility] [place]CB WITH [id number] 12:17:00 Test Item Value Reference Range Interpretation [...] RDW-SD (test code = 44.9 fL 38.5-51.6 41441-0) RDW-CV (test code = 15.9 % 12.1-15.4 H 788-0) PLT (test code = See_Comment H [Automated 777-3) message] The sy stem which generated this result transmitted reference range : 150 - 328 10*3/ ?L. The reference r torito was not used to interpret this result as normal/abnormal . MPV (test code = 8.3 fL 9.8-13.0 L 81084-3) NRBC/100 WBC (test See_Comment [Automat ed code = 1426588390) message] The system which generated this result transmitted reference range : 0.0 - 10.0 /100 WBCs. The refer ence range was not u sed to interpret th is result as normal/abnormal . NRBC x10^3 (test code <0.01 See_Comment [Auto mated = 7185206788) message] The s ystem which generated this result transmitted reference range : 10*3/?L. The reference range was not used to interpret this result as normal/abnormal . GRAN MAT (NEUT) % 77.9 % (test code = 770-8) IMM GRAN % (test code 0.50 % = 3466344061) LYMPH % (test code = 12.2 % 736-9) MONO % (test code = 5.2 % 5905-5) EOS % (test code = 3.7 % 713-8) BASO % (test code = 0.5 % 706-2) GRAN MAT x10^3(ANC) 9.57 10*3/uL 1.99-6.95 H (test code = 9360915364) IMM GRAN x10^3 (test 0.06 10*3/uL 0.00-0.06 code = 9851078525) LYMPH x10^3 (test code 1.50 10*3/uL 1.09-3.23 = 731-0) MONO x10^3 (test code 0.64 10*3/uL 0.36-1.02 = 742-7) EOS x10^3 (test code = 0.46 10*3/uL 0.06-0.53 711-2) BASO x10^3 (test code 0.06 10*3/uL 0.01-0.09 = 704-7) Lab Interpretation Abnormal (test code = 43318-0) [facility] [place]LAB ONLY COVID [id number] 18:43:00COVID DMT InterpretationInterpretation/Recommendations: Molecular NAAT Test Results [...] a nasopharyngeal sample, there is approximately a zye-pf-tgqzr chance that the patient was infected and [...] based upon aggregate data pooled from the [facility] medical record including both current and prior COVID-19 related testing results for the following tests offered at our institution:A. Tests for the Identification of SARS-CoV-2 RNA:SARS-CoV-2 PCR assays including [place] Aptima, [place] Fusion, Barrett RealTime, and [place] Xpert Xpress. SARS-CoV-2 Rapid ID NOW by the ID NOW assay. ? B. Tests for the Identification of SARS-CoV-2 Antibodies: Chemiluminescent immunoassays including Access SARS-CoV-2 IgM (DXI 600), CivolutionS Sdiw-RRMB-FrD-2 IgG (Vitros 5600 and Vitros 3600), and Barrett SARS-CoV-2 IgG (BUTTON CLAMPER I System). These interpretation comments assume that only the above testing was utilized and that the approved acceptable specimen type(s) were used for a given test. These interpretations are autopopulated into [employer] based on computerized algorithms matching an interpretation code number to the patient's set of test results. While a clinical pathologist evaluates the combinations for clinical accuracy, clinical correlation is recommended as it may not take into account very remote prior testing. Furthermore, it does not consider testing a patient may have had outside of the [facility] system. Additionally, it should be noted that the computerized algorithm treats the results for PCR testing and Rapid ID NOW testing (also PCR) synonymously, and thus, refers to both testing methodologies as PCR tests. Given that the sensitivity of [facility]'s Rapid ID NOW testingplatform is [...] panel may be beneficial in this setting. [facility] LABORATORY SERVICESCOVID RaheejxTJTI-JoK-1 Rapid ID NOW (no units) ? ? Date ? Value ? 08/21/2020 ? Not Detected ? [facility]2020-08-23 18:25:00 Test Item Value Reference Range Interpretation Comments POCT GLU (test code = 6663816031) 297 mg/dL 70-110 H Lab Interpretation (test code = Abnormal 34118-0) [facility] GLUCOSE (AUTOMATED)2020-08-23 14:25:00 Test Item Value Reference Range Interpretation Comments POCT GLU (test code = 3850549799) 181 mg/dL 70-110 H Lab Interpretation (test code = Abnormal 52379-3) [facility] [place]Basic Metabolic Panel (NA, K, CL, CO2, GLUCOSE, BUN, CREATININE, CA)2020-08-23 11:45:00 Test Item Value Reference Range Interpretation Comments NA (test code = 132 mmol/L 135-145 L 0839446189) K (test code = 4.0 mmol/L 3.5-5 5578424023) CL (test code = 96 mmol/L 98-108 L 0133875104) CO2 TOTAL (test code = 33 mmol/L 23-31 H 8678678635) AGAP (test code = 2-16 9828151730) BUN (test code = 9 mg/dL 7-23 2902329527) GLUCOSE (test code = 176 mg/dL 70-110 H 3681026375) CREATININE (test code = 0.66 mg/dL 0.6-1.25 3893143107) CALCIUM (test code = 8.5 mg/dL 8.6-10.6 L 9214773271) eGFR Calculation mL/min/1.73m2 (Non-) (test code = 3444967849) eGFR Calculation mL/min/1.73m2 () (test code = 6795947256) JAMES (test code = JAMES) Association of [...] tests). Lab Interpretation Abnormal (test code = 39084-2) [facility] [place]oundMagnesium [id number] 11:45:00 Test Item Value Reference Range Interpretation Comments MAGNESIUM (test code = 0617404340) 2.0 mg/dL 1.7-2.4 Lab Interpretation (test code = Normal 83245-7) [facility] [place] with [id number] 11:38:00 Test Item Value Reference Range Interpretation [...] RDW-SD (test code = 41.8 fL 38.5-51.6 94717-0) RDW-CV (test code = 14.3 % 12.1-15.4 788-0) PLT (test code = See_Comment H [Automated 777-3) message] The sy stem which generated this result transmitted reference range : 150 - 328 10*3/ ?L. The reference r torito was not used to interpret this result as normal/abnormal . MPV (test code = 8.0 fL 9.8-13 L 57941-8) NRBC/100 WBC (test See_Comment [Automat ed code = 4788586246) message] The system which generated this result transmitted reference range : 0.0 - 10.0 /100 WBCs. The refer ence range was not u sed to interpret th is result as normal/abnormal . NRBC x10^3 (test code <0.01 See_Comment [Auto mated = 8340172449) message] The s ystem which generated this result transmitted reference range : 10*3/?L. The reference range was not used to interpret this result as normal/abnormal . GRAN MAT (NEUT) % 61.5 % (test code = 770-8) IMM GRAN % (test code 2.00 % = 9511017840) LYMPH % (test code = 25.5 % 736-9) MONO % (test code = 6.3 % 5905-5) EOS % (test code = 3.7 % 713-8) BASO % (test code = 1.0 % 706-2) GRAN MAT x10^3(ANC) 5.29 10*3/uL 1.99-6.95 (test code = 6498508486) IMM GRAN x10^3 (test 0.17 10*3/uL 0-0.06 H code = 2654252984) LYMPH x10^3 (test code 2.19 10*3/uL 1.09-3.23 = 731-0) MONO x10^3 (test code 0.54 10*3/uL 0.36-1.02 = 742-7) EOS x10^3 (test code = 0.32 10*3/uL 0.06-0.53 711-2) BASO x10^3 (test code 0.09 10*3/uL 0.01-0.09 = 704-7) Lab Interpretation Abnormal (test code = 51300-3) [facility] GLUCOSE (AUTOMATED)2020-08-23 10:22:00 Test Item Value Reference Range Interpretation Comments POCT GLU (test code = 0594762142) 164 mg/dL 70-110 H Lab Interpretation (test code = Abnormal 04852-0) [facility] GLUCOSE (AUTOMATED)2020-08-23 05:56:00 Test Item Value Reference Range Interpretation Comments POCT GLU (test code = 7040384886) 242 mg/dL 70-110 H Lab Interpretation (test code = Abnormal 99537-8) [facility] GLUCOSE (AUTOMATED)2020-08-23 03:02:00 Test Item Value Reference Range Interpretation Comments POCT GLU (test code = 0593553276) 210 mg/dL 70-110 H Lab Interpretation (test code = Abnormal 72183-0) [facility] GLUCOSE (AUTOMATED)2020-08-22 23:40:00 Test Item Value Reference Range Interpretation Comments POCT GLU (test code = 1763231317) 267 mg/dL 70-110 H Lab Interpretation (test code = Abnormal 24691-5) [facility] GLUCOSE (AUTOMATED)2020-08-22 19:08:00 Test Item Value Reference Range Interpretation Comments POCT GLU (test code = 5346217672) 191 mg/dL 70-110 H Lab Interpretation (test code = Abnormal 82140-7) [facility] GLUCOSE (AUTOMATED)2020-08-22 13:50:00 Test Item Value Reference Range Interpretation Comments POCT GLU (test code = 9124569894) 174 mg/dL 70-110 H Lab Interpretation (test code = Abnormal 18460-2) [facility] [place]oundURINE [id number] 12:59:00 Test Item Value Reference Range Interpretation Comments URINE CULTURE (test No aerobic growth (< code = 630-4) 1000 CFU/mL) [facility] with Ropaaftocmgk9142-63-11 11:28:00 Test Item Value Reference Range Interpretation Comments WBC (test code = See_Comment [Automated 7990-2) message] The sy stem which generated this result transmitted reference range : 4.20 - 10.70 10*3/?L. The reference range was not used to interpret this result as normal/abnormal . RBC (test code = See_Comment L [Automated 509-8) message] The sy stem which [...] RDW-SD (test code = 42.5 fL 38.5-51.6 03442-3) RDW-CV (test code = 14.5 % 12.1-15.4 788-0) PLT (test code = See_Comment H [Automated 777-3) message] The sy stem which generated this result transmitted reference range : 150 - 328 10*3/ ?L. The reference r torito was not used to interpret this result as normal/abnormal . MPV (test code = 8.0 fL 9.8-13 L 98170-0) NRBC/100 WBC (test See_Comment [Automat ed code = 6912762931) message] The system which generated this result transmitted reference range : 0.0 - 10.0 /100 WBCs. The refer ence range was not u sed to interpret th is result as normal/abnormal . NRBC x10^3 (test code <0.01 See_Comment [Auto mated = 5226355399) message] The s ystem which generated this result transmitted reference range : 10*3/?L. The reference range was not used to interpret this result as normal/abnormal . GRAN MAT (NEUT) % 69.1 % (test code = 770-8) IMM GRAN % (test code 2.20 % = 6789316277) LYMPH % (test code = 20.9 % 736-9) MONO % (test code = 5.8 % 5905-5) EOS % (test code = 1.0 % 713-8) BASO % (test code = 1.0 % 706-2) GRAN MAT x10^3(ANC) 6.51 10*3/uL 1.99-6.95 (test code = 1440461353) IMM GRAN x10^3 (test 0.21 10*3/uL 0-0.06 H code = 8623738417) LYMPH x10^3 (test code 1.97 10*3/uL 1.09-3.23 = 731-0) MONO x10^3 (test code 0.55 10*3/uL 0.36-1.02 = 742-7) EOS x10^3 (test code = 0.09 10*3/uL 0.06-0.53 711-2) BASO x10^3 (test code 0.09 10*3/uL 0.01-0.09 = 704-7) BASO STIPPLING (test Present A code = 703-9) BANDS (test code = Increased A 9291630497) TOXIC CHANGES (test Present A code = 803-7) Lab Interpretation Abnormal (test code = 46342-4) [facility] Metabolic Panel (NA, K, CL, CO2, GLUCOSE, BUN, CREATININE, CA)2020-08-22 11:12:00 Test Item Value Reference Range Interpretation Comments NA (test code = 135 mmol/L 135-145 1634354033) K (test code = 3.6 mmol/L 3.5-5 5051803042) CL (test code = 99 mmol/L 98-108 8740122104) CO2 TOTAL (test code = 31 mmol/L 23-31 7297405347) AGAP (test code = 2-16 3032492992) BUN (test code = 9 mg/dL 7-23 9043758250) GLUCOSE (test code = 198 mg/dL 70-110 H 4615304136) CREATININE (test code = 0.72 mg/dL 0.6-1.25 3240468469) CALCIUM (test code = 8.3 mg/dL 8.6-10.6 L 7425596093) eGFR Calculation mL/min/1.73m2 (Non-) (test code = 6557269097) eGFR Calculation mL/min/1.73m2 () (test code = 2429803009) JAMES (test code = JAMES) Association of [...] tests). Lab Interpretation Abnormal (test code = 69128-6) [facility]oundMagnesium [id number] 11:12:00 Test Item Value Reference Range Interpretation Comments MAGNESIUM (test code = 4995186329) 2.0 mg/dL 1.7-2.4 Lab Interpretation (test code = Normal 30372-9) [facility]oundLipid Panel (Total Cholesterol, Triglycerides, HDL) - [id number] 11:12:00 Test Item Value Reference Range Interpretation Comments CHOL (test code = 155 mg/dL 120-200 0191283511) HDL (test code = 42 mg/dL >40 9742253447) HDLC RATIO (test code = See_Comment [Au tomated message] 6735338060) The system Clipik generated this result transmit ronan reference range : <=5.0. The refe rence range was not u sed to interpret th is result as normal/abnormal . TRIG (test code = 186 mg/dL 30-170 H 8111057336) LDL CHOL (test code = 76 mg/dL See_Comment [Auto mated message] 25276-5) The system Clipik generated this result transmit ronan reference range : <=160. The refe rence range was not u sed to interpret th is result as normal/abnormal . VLDL (test code = 37 mg/dL 5-60 8880737760) Lab Interpretation (test Abnormal code = 47417-1) [facility] [place]oundHEPATIC FUNCTION PANEL (27317) (ALB,T.PRO,BILI T,BU/BC,ALT,AST,ALK PHOS)2020-08-22 11:12:00 Test Item Value Reference Range Interpretation Comments TOTAL BILI (test code = 8458633792) 0.6 mg/dL 0.1-1.1 BILI UNCON (test code = 4190853695) 0.2 mg/dL 0.1-1.1 BILI CONJ (test code = 6055323613) 0.0 mg/dL 0-0.3 T PROTEIN (test code = 1630143956) 6.0 g/dL 6.3-8.2 L ALBUMIN (test code = 8730742141) 2.8 g/dL 3.5-5 L ALK PHOS (test code = 4705536008) 222 U/L 34-122 H ALTv (test code = 1742-6) 27 U/L 5-50 AST(SGOT) (test code = 2418765884) 30 U/L 13-40 Lab Interpretation (test code = Abnormal 42926-2) [facility] GLUCOSE (AUTOMATED)2020-08-22 10:11:00 Test Item Value Reference Range Interpretation Comments POCT GLU (test code = 6119287155) 196 mg/dL 70-110 H Lab Interpretation (test code = Abnormal 69728-9) [facility] GLUCOSE (AUTOMATED)2020-08-22 07:15:00 Test Item Value Reference Range Interpretation Comments POCT GLU (test code = 3932636509) 183 mg/dL 70-110 H Lab Interpretation (test code = Abnormal 62091-8) [facility] GLUCOSE (AUTOMATED)2020-08-22 02:30:00 Test Item Value Reference Range Interpretation Comments POCT GLU (test code = 2226341476) 295 mg/dL 70-110 H Lab Interpretation (test code = Abnormal 83992-2) [facility] GLUCOSE (AUTOMATED)2020-08-21 23:46:00 Test Item Value Reference Range Interpretation Comments POCT GLU (test code = 9183311494) 258 mg/dL 70-110 H Lab Interpretation (test code = Abnormal 52196-3) [facility]oundC-REACTIVE ZYTMHVO1911-20-05 18:50:00 Test Item Value Reference Range Interpretation Comments CRP (test code = 2167653972) 15.5 mg/dL <0.8 H Lab Interpretation (test code = Abnormal 76052-4) [facility] ([facility]ATED[facility]2020-08-21 18:21:00 Test Item Value Reference Range Interpretation Comments POCT GLU (test code = 0398568231) 297 mg/dL 70-110 H Lab Interpretation (test code = Abnormal 00367-0) [facility]oundETHANOL2020-11-09 16:24:00 Test Item Value Reference Range Interpretation Comments ALCOHOL (test code = <10 mg/dL 4614019489) JAMES (test code = Toxic Greater than or JAMES) equal to 80 mg/dL. NOTE: Whole blood values are approximately 10% to 15% lower than serum and plasma. [facility]oundGALV/CLC ONLY - URINE DRUG (IMMUNOASSAY) - 4 ER [id number] 15:36:00 Test Item Value Reference Range Interpretation Comments AMPHET (test code = Negative Negative 6990822372) Cocaine Metabolite (test Negative Negative code = 0925161645) OPIATES (test code = Presumptive Positive Negative A 9627683048) THC (test code = Negative Negative 5965548506) JAMES (test code = JAMES) Urine Drug Cutoff Ranges Amphetamine: ? 1,000 ng/mLCocaine: ? 150 ng/mLOpiates: ? 300 ng/mLCannabinoids: ?50 ng/mL The results are to be used only for medical (i.e., treatment) purposes. Unconfirmed screening results must not be used for non-medical purposes (e.g., employment testing, legal testing). Lab Interpretation (test Abnormal code = 69045-6) [facility] ONLY - SYPHILIS [id number]/[id number] 15:04:00 Test Item Value Reference Range Interpretation Comments Syphilis IgG/IgM (test Non-reactive Non-reactive code = 27995-1) JAMES (test code = JAMES) Non-reactive - No serologic evidence of T. pallidum infection. Cannot exclude incubating or early syphilis. Submit a second specimen in 2-4 weeks if syphilis is clinically suspected. Equivocal - Further testing to follow. Reactive - Further testing to follow. Lab Interpretation (test Normal code = 51660-3) [facility]oundUrinalysis2020-11-09 14:52:00 Test Item Value Reference Range Interpretation Comments APPEARANCE (test code = Clear Clear 6892554207) COLOR (test code = Yellow Yellow 0017171805) PH (test code = 4.8-8.0 6336598910) SP GRAVITY (test code = 1.003-1.030 6477666797) GLU U QUAL (test code = 500 mg/dL Normal A 2927499586) BLOOD (test code = Negative Negative 2110732636) KETONES (test code = 20 mg/dL Negative A 8556624642) PROTEIN (test code = Negative Negative 2887-8) UROBILIN (test code = Normal Normal 0910402344) BILIRUBIN (test code = Negative Negative 0569417705) NITRITE (test code = Negative Negative 9939488465) LEUK RYAN (test code = Negative Negative 8891712525) RBC/HPF (test code = <1 See_Comment [Autom ated message] 5017771005) The system [employer] generated this result transmit ronan reference range : 0 - 3 HPF. The refe rence range was not u sed to interpret th is result as normal/abnormal . WBC/HPF (test code = See_Comment [Autom ated message] 7844158582) The system [employer] generated this result transmit ronan reference range : 0 - 5 HPF. The refe rence range was not u sed to interpret th is result as normal/abnormal . BACTERIA (test code = Negative Negative 4135154212) MUCOUS (test code = Slight Negative LPF A 3988475111) Lab Interpretation (test Abnormal code = 56072-2) [facility]oundACTIVATED PARTIAL THRMPLAS [id number] 13:45:00 Test Item Value Reference Range Interpretation Comments APTT Patient (test code = See_Comment [ Automated message] 3173-2) The system [employer] generated this result transmitted ref erence range: 26 - 36 Seconds. The re ference range was not u sed to interpret this result as normal/abnor mal. Lab Interpretation (test Normal code = 13623-5) [facility] 13:45:00 Test Item Value Reference Range Interpretation Comments POCT GLU (test code = 1988872667) 246 mg/dL 70-110 H Lab Interpretation (test code = Abnormal 77336-7) [facility] WITH [id number] 12:32:00 Test Item Value Reference Range Interpretation Comments HIV Negative Negative Semi-quantitative (test code = 16441-7) JAMES (test code = Non-reactive for HIV-1 JAMES) antigen and HIV-1/HIV-2 antibodies. ?No laboratory evidence of HIV infection. ?Repeat in 2-4 weeks if acute HIV infection is suspected. [facility] [id number] 12:18:00 Test Item Value Reference Range Interpretation Comments WBC (test code = See_Comment [Automated 4090-2) message] The sy stem which generated this [...] RDW-SD (test code = 44.4 fL 38.5-51.6 18267-5) RDW-CV (test code = 14.5 % 12.1-15.4 788-0) PLT (test code = See_Comment H [Automated 777-3) message] The sy stem which generated this result transmitted reference range : 150 - 328 10*3/ ?L. The reference r torito was not used to interpret this result as normal/abnormal . MPV (test code = 8.5 fL 9.8-13 L 26161-8) NRBC/100 WBC (test See_Comment [Automat ed code = 5318795403) message] The system which generated this result transmitted reference range : 0.0 - 10.0 /100 WBCs. The refer ence range was not u sed to interpret th is result as normal/abnormal . NRBC x10^3 (test code <0.01 See_Comment [Auto mated = 0684268716) message] The s ystem which generated this result transmitted reference range : 10*3/?L. The reference range was not used to interpret this result as normal/abnormal . GRAN MAT (NEUT) % 90.4 % (test code = 770-8) IMM GRAN % (test code 1.30 % = 2383513948) LYMPH % (test code = 7.1 % 736-9) MONO % (test code = 0.5 % 5905-5) EOS % (test code = 0.1 % 713-8) BASO % (test code = 0.6 % 706-2) GRAN MAT x10^3(ANC) 7.74 10*3/uL 1.99-6.95 H (test code = 8416544974) IMM GRAN x10^3 (test 0.11 10*3/uL 0-0.06 H code = 7853424304) LYMPH x10^3 (test code 0.61 10*3/uL 1.09-3.23 L = 731-0) MONO x10^3 (test code 0.04 10*3/uL 0.36-1.02 L = 742-7) EOS x10^3 (test code = <0.03 0.06-0.53 L 711-2) BASO x10^3 (test code 0.05 10*3/uL 0.01-0.09 = 704-7) POLYCHROMASIA (test 2+ See_Comment [Automa ronan code = 40370-4) message] The system which generated this result transmitted reference range : 2+. The referen ce range was not u sed to interpret th is result as normal/abnormal . BANDS (test code = Increased A 0997856281) Lab Interpretation Abnormal (test code = 91568-6) [facility]AL[facility]IN2020-[facility] 11:48:00 Test Item Value Reference Range Interpretation Comments Procalcitonin (test 0.36 ng/mL <0.07 H code = 0202594115) JAMES (test code = JAMES) INTERPRETATION OF [...] lung abscess/empyema. For further information please refer to:[email or web address] Lab Interpretation Abnormal (test code = 16432-4) [facility]oundLAFLATE [id number] 10:53:00 Test Item Value Reference Range Interpretation Comments LDH (test code = 4131600798) 351 U/L 300-600 Lab Interpretation (test code = Normal 74552-6) [facility]oundSEDIMENTATION [id number] 10:07:00 Test Item Value Reference Range Interpretation Comments ESR (test code = See_Comment H [Automated message] 3394484490) The system [employer] generated this result transmitted ref erence range: 0 - 10 m m/HR. The reference r torito was not used to interpret this result as normal/abnor mal. Lab Interpretation (test Abnormal code = 70794-4) [facility]FL GLU[facility]SE (AUTOMATED)2020-08-21 09:45:00 Test Item Value Reference Range Interpretation Comments POCT GLU (test code = 3760038916) 287 mg/dL 70-110 H Lab Interpretation (test code = Abnormal 44618-0) [facility]oundGlycosylated Hemoglobin (A1C)2020-08-21 09:29:00 Test Item Value Reference Range Interpretation Comments HGB A1C (test code = 4548-4) 9.8 % 4-6 H Lab Interpretation (test code = Abnormal 08608-9) [facility]OVID-[facility] (ID NOW RAPID TESTING)2020-08-21 09:13:00 Test Item Value Reference Range Interpretation Comments SARS-CoV-2 Rapid ID NOW Not Detected Not Detected (test code = 72036-3) JAMES (test code = JAMES) ID NOW COVID-19 Assay is an isothermal nucleic acid amplification test intended for the qualitative detection of nucleic acid from SARS-CoV-2 viral RNA in nasopharyngeal (HIM CODER) specimens. It is used under Emergency Use [...] indicated. Lab Interpretation Normal (test code = 62184-4) [facility]oundProthrombin Time / [id number] 08:59:00 Test Item Value Reference Range Interpretation Comments PROTIME PATIENT (test See_Comment H [Auto mated message] code = 5964-2) The system [employer] generated this result transmitted ref erence range: 10.1 - 1 2.6 Seconds. The reference range was not used to int erpret this result as normal/abnormal . INR (test code = 6301-6) Nor mal INR <1.1; Warfarin Therap eutic range 2.0 to 3. 0 or 2.5 to 3.5, dep ending upon the indica tions. Lab Interpretation (test Abnormal code = 96768-3) [facility]oundaPTT2020-11-09 08:59:00 Test Item Value Reference Range Interpretation Comments APTT Patient (test code = See_Comment [ Automated message] 3173-2) The system [employer] generated this result transmitted ref erence range: 26 - 36 Seconds. The re ference range was not u sed to interpret this result as normal/abnor mal. Lab Interpretation (test Normal code = 81046-7) [facility]oundBASI METABOLIC PANEL (NA, K, CL, CO2, GLUCOSE, BUN, CREATININE, CA)2020-08-21 08:52:00 Test Item Value Reference Range Interpretation Comments NA (test code = 136 mmol/L 135-145 2041482843) K (test code = 4.3 mmol/L 3.5-5 4629663924) CL (test code = 104 mmol/L 98-108 5730573773) CO2 TOTAL (test code = 24 mmol/L 23-31 4931932902) AGAP (test code = 2-16 0345564065) BUN (test code = 8 mg/dL 7-23 2896428767) GLUCOSE (test code = 308 mg/dL 70-110 H 4247078450) CREATININE (test code = 0.72 mg/dL 0.6-1.25 7137252557) CALCIUM (test code = 7.8 mg/dL 8.6-10.6 L 8712739152) eGFR Calculation mL/min/1.73m2 (Non-) (test code = 1412799676) eGFR Calculation mL/min/1.73m2 () (test code = 0158670180) JAMES (test code = JAMES) Association of [...] tests). Lab Interpretation Abnormal (test code = 22127-0) [facility]oundHEPATIC FUNCTION PANEL (49603) (ALB,T.PRO,BILI T,BU/BC,ALT,AST,ALK PHOS)2020-08-21 08:52:00 Test Item Value Reference Range Interpretation Comments TOTAL BILI (test code = 4513249519) 0.8 mg/dL 0.1-1.1 BILI UNCON (test code = 4235752354) 0.3 mg/dL 0.1-1.1 BILI CONJ (test code = 5497113211) 0.0 mg/dL 0-0.3 T PROTEIN (test code = 4209419731) 5.7 g/dL 6.3-8.2 L ALBUMIN (test code = 5445601446) 2.7 g/dL 3.5-5 L ALK PHOS (test code = 6222812431) 245 U/L 34-122 H ALTv (test code = 1742-6) 37 U/L 5-50 AST(SGOT) (test code = 1035800713) 43 U/L 13-40 H Lab Interpretation (test code = Abnormal 22320-9) [facility]
[2021-12-14] MEDS ORDERED: ONDANSETRON 4 MG/2 ML VIAL ONE (09:36)
[2021-12-14] MEDS ORDERED: HYDROMORPHONE HCL 2 MG/ML inj ONE (09:36)
[2021-12-14] MEDS ORDERED: NA CHLORIDE 0.9% 500 ML ONE (09:36)
--- NOTE | 2021-12-14 09:43 | ER ---
Nurse's Notes [facility] Name: Kiel Ngo Age: 71 yrs Sex: Male : 1950 Arrival Date: 12/14/2021 Time: 09:12 Bed 19 Private MD: Diagnosis: Pain in right hip;Chronic pain, not elsewhere classified Presentation: 12/14 09:18 Chief complaint: EMS states: chronic right hip and leg pain, states dilaudid is the only thing that works. Coronavirus screen: At this time, the client does not indicate any symptoms associated with coronavirus-19. Ebola Screen: Patient negative for fever greater than or equal to 101.5 degrees Fahrenheit, and additional compatible Ebola Virus Disease symptoms Patient denies exposure to infectious person. Patient denies travel to an Ebola-affected area in the 21 days before illness onset. No symptoms or risks identified at this time. Initial Sepsis Screen: Does the patient meet any 2 criteria? No. Patient's initial sepsis screen is negative. Does the patient have a suspected source of infection? No. Patient's initial sepsis screen is negative. Risk Assessment: Do you want to hurt yourself or someone else? Patient reports no desire to harm self or others. Onset of symptoms was December 14, 2021. 09:18 Method Of Arrival: EMS: [facility] iw 09:18 Acuity: JOZEF 4 iw 09:26 Acuity: JOZEF 3 iw Triage Assessment: : General: Behavior is calm, cooperative. robbins Historical: - Allergies: 09:18 Demerol; iw 09:18 metformin; iw 09:18 Morphine; iw - PMHx: 09:18 Atrial fibrillation; chronic back pain; Chronic right leg pain; neuropathy; iw - PSHx: 09:18 back sx; PANCREAS SX; R. Ankle SX; iw - Immunization history:: Adult Immunizations up to date. - Social history:: Smoking status: Patient denies any tobacco usage or history of. - Family history:: not pertinent. Screenin:25 Abuse screen: Denies threats or abuse. Denies injuries from another. Nutritional robbins screening: No deficits noted. Tuberculosis screening: No symptoms or risk factors identified. Fall Risk None identified. Assessment: :25 General: Appears in no apparent distress. Pain: Complains of pain in right leg. robbins Musculoskeletal: Reports pain in right hip and right leg Pain is 9 out of 10 on a pain scale. 11:01 Reassessment: EMS at bedside, report given. Pt stable at time of discharge. ab2 Vital Signs: 09:23 BP 161 / 96; Pulse 93; Resp 18 S; Temp 97.7(TE); Pulse Ox 98% on R/A; iw 11:00 BP 130 / 73; Pulse 88; Resp 18; Pulse Ox 97% on R/A; ab2 ED Course: 09:12 Patient arrived in ED. eb 09:18 Triage completed. iw 09:20 Arm band placed on. iw 09:23 Stu Banerjee MD is Attending Physician. chetan 09:25 Patient has correct armband on for positive identification. Bed in low position. robbins 09:25 No provider procedures requiring assistance completed. robbins 09:40 Dontae Miguel MD is Referral Physician. chetan 09:50 Inserted saline lock: 20 gauge in right hand, using aseptic technique. robbins 10:02 Eliazar Brennan is Primary Nurse. ab2 10:29 Hip Right 2 View XRAY In Process Unspecified. EDMS 11:01 IV discontinued, intact, bleeding controlled, No redness/swelling at site. Pressure ab2 dressing applied. Administered Medications: 09:49 Drug: Zofran (Ondansetron) 4 mg Route: IVP; Site: right hand; robbins 09:50 Follow up: Response: No adverse reaction robbins 09:50 Drug: NS 0.9% 500 ml Route: IV; Rate: bolus; Site: right hand; robbins 11:00 Follow up: Response: No adverse reaction; IV Status: Completed infusion ab2 09:50 Drug: Dilaudid (HYDROmorphone) 2 mg Route: IVP; Site: right hand; robbins 09:50 Follow up: Response: No adverse reaction robbins Outcome: 09:43 Discharge ordered by . chetan 11:01 Discharged to home via ambulance. ab2 11:01 Condition: good 11:01 Discharge instructions given to patient, Instructed on discharge instructions, follow up and referral plans. Demonstrated understanding of instructions, follow-up care. 11:01 Patient left the ED. ab2 Signatures: Dispatcher [employer] EDMS Stu Banerjee MD MD cha Williams, Irene, DIEGO RN Shannan Moraes Heather RN RN Eliazar Dennis2 Corrections: (The following items were deleted from the chart) 09:25 09:23 BP 161 / 96; Pulse 93bpm; Resp 18bpm; Spontaneous; Pulse Ox 98% RA; iw iw
--- NOTE | 2021-12-14 09:43 | EDPHYS ---
Physician Documentation [facility] Name: Kiel Ngo Age: 71 yrs Sex: Male : 1950 Arrival Date: 12/14/2021 Time: 09:12 Bed 19 Private MD: ED Physician Stu Banerjee HPI: 12/14 09:33 This 71 yrs old Male presents to ER via EMS with complaints of Hip Pain, Leg chetan Pain. 09:33 The patient or guardian reports decreased range of motion, pain. that occurred at an [facility] unknown site. The complaints affect the right hip. Onset: The symptoms/episode began/occurred 2 month(s) ago. Modifying factors: The symptoms are alleviated by remaining still, the symptoms are aggravated by any movement. Associated signs and symptoms: Loss of consciousness: the patient experienced no loss of consciousness, Pertinent positives: None. Pertinent negatives: weakness. Severity of symptoms: At their worst the symptoms were moderate, in the emergency department the symptoms are unchanged. The patient has experienced similar episodes in the past, multiple times, chronically. Historical: - Allergies: 09:18 Demerol; iw 09:18 metformin; iw 09:18 Morphine; iw - PMHx: 09:18 Atrial fibrillation; chronic back pain; Chronic right leg pain; neuropathy; iw - PSHx: 09:18 back sx; PANCREAS SX; R. Ankle SX; iw - Immunization history:: Adult Immunizations up to date. - Social history:: Smoking status: Patient denies any tobacco usage or history of. - Family history:: not pertinent. ROS: 09:33 Constitutional: Negative for fever, chills, and weight loss, Eyes: Negative for injury, chetan pain, redness, and discharge, ENT: Negative for injury, pain, and discharge, Neck: Negative for injury, pain, and swelling, Cardiovascular: Negative for chest pain, palpitations, and edema, Respiratory: Negative for shortness of breath, cough, wheezing, and pleuritic chest pain, Abdomen/GI: Negative for abdominal pain, nausea, vomiting, diarrhea, and constipation, Back: Negative for injury and pain, : Negative for injury, bleeding, discharge, and swelling, Skin: Negative for injury, rash, and discoloration, Neuro: Negative for headache, weakness, numbness, tingling, and seizure, Psych: Negative for depression, anxiety, suicide ideation, homicidal ideation, and hallucinations, Allergy/Immunology: Negative for hives, rash, and allergies, Endocrine: Negative for neck swelling, polydipsia, polyuria, polyphagia, and marked weight changes, Hematologic/Lymphatic: Negative for swollen nodes, abnormal bleeding, and unusual bruising. 09:33 MS/extremity: Positive for decreased range of motion, pain, of the right hip. Exam: 09:33 Constitutional: This is a well developed, well nourished patient who is awake, alert, chetan and in no acute distress. Head/Face: Normocephalic, atraumatic. Eyes: Pupils equal round and reactive to light, extra-ocular motions intact. Lids and lashes normal. Conjunctiva and sclera are non-icteric and not injected. Cornea within normal limits. Periorbital areas with no swelling, redness, or edema. ENT: Nares patent. No nasal discharge, no septal abnormalities noted. Tympanic membranes are normal and external auditory canals are clear. Oropharynx with no redness, swelling, or masses, exudates, or evidence of obstruction, uvula midline. Mucous membranes moist. Neck: Trachea midline, no thyromegaly or masses palpated, and no cervical lymphadenopathy. Supple, full range of motion without nuchal rigidity, or vertebral point tenderness. No Meningismus. Chest/axilla: Normal chest wall appearance and motion. Nontender with no deformity. No lesions are appreciated. Cardiovascular: Regular rate and rhythm with a normal S1 and S2. No gallops, murmurs, or rubs. Normal PMI, no JVD. No pulse deficits. Respiratory: Lungs have equal breath sounds bilaterally, clear to auscultation and percussion. No rales, rhonchi or wheezes noted. No increased work of breathing, no retractions or nasal flaring. Abdomen/GI: Soft, non-tender, with normal bowel sounds. No distension or tympany. No guarding or rebound. No evidence of tenderness throughout. Back: No spinal tenderness. No costovertebral tenderness. Full range of motion. Male : Normal genitalia with no discharge or lesions. Skin: Warm, dry with normal turgor. Normal color with no rashes, no lesions, and no evidence of cellulitis. Neuro: Awake and alert, GCS 15, oriented to person, place, time, and situation. Cranial nerves II-XII grossly intact. Motor strength 5/5 in all extremities. Sensory grossly intact. Cerebellar exam normal. Normal gait. Psych: Awake, alert, with orientation to person, place and time. Behavior, mood, and affect are within normal limits. 09:33 Musculoskeletal/extremity: Extremities: grossly normal except: noted in the left hip and left upper thigh: decreased ROM, pain. Vital Signs: 09:23 BP 161 / 96; Pulse 93; Resp 18 S; Temp 97.7(TE); Pulse Ox 98% on R/A; iw 11:00 BP 130 / 73; Pulse 88; Resp 18; Pulse Ox 97% on R/A; ab2 MDM: 09:23 Patient medically screened. chetan 09:39 Differential diagnosis: bursitis, arthritis. Data reviewed: vital signs, nurses notes, chetan lab test result(s), radiologic studies, plain films. Data interpreted: ekg monitor: rate is 93 beats/min, rhythm is regular, Pulse oximetry: on room air is 98 %. Test interpretation: by ED physician or midlevel provider: plain radiologic studies. Counseling: I had a detailed discussion with the patient and/or guardian regarding: the historical points, exam findings, and any diagnostic results supporting the discharge/admit diagnosis, lab results, radiology results, the need for outpatient follow up, for definitive care, a orthopedic surgeon, a senior painter. 12/14 09:26 Order name: CBC with Diff; Complete Time: 10:42 [facility] 12/14 09:26 Order name: BMP; Complete Time: 10:42 [facility] 12/14 09:26 Order name: Hip Right 2 View XRAY chetan Administered Medications: 09:49 Drug: Zofran (Ondansetron) 4 mg Route: IVP; Site: right hand; robbins 09:50 Follow up: Response: No adverse reaction robbins 09:50 Drug: NS 0.9% 500 ml Route: IV; Rate: bolus; Site: right hand; robbins 11:00 Follow up: Response: No adverse reaction; IV Status: Completed infusion ab2 09:50 Drug: Dilaudid (HYDROmorphone) 2 mg Route: IVP; Site: right hand; robbins 09:50 Follow up: Response: No adverse reaction robbins Disposition Summary: 12/14/21 09:43 Discharge Ordered Location: Home chetan Problem: new chetan Symptoms: have improved chetan Condition: Stable chetan Diagnosis - Pain in right hip chetan - Chronic pain, not elsewhere classified chetan Followup: chetan - With: Private Physician - When: 2 - 3 days - Reason: Recheck today's complaints, Continuance of care, Re-evaluation by your physician Followup: chetan - With: Dontae Miguel MD - When: 2 - 3 days - Reason: Recheck today's complaints, Re-evaluation by your physician Discharge Instructions: - Discharge Summary Sheet chetan - Joint Pain chetan - Arthritis chetan - Musculoskeletal Pain chetan - Hip Pain chetan - Arthritis, Orwe-ay-Zmot chetan - Joint Pain, Uthb-gt-Bsln chetan Forms: - Medication Reconciliation Form chetan - Thank You Letter chetan - Antibiotic Education chetan - Prescription Opioid Use chetan Signatures: Dispatcher [employer] Stu Vale MD MD cha Williams, Irene RN RN Charisma Fernandez RN RN ha Bleininger, Alexis ab2
[2021-12-14 10:12] LABS: Absolute Lymphocytes (CBC) 2.5 K/uL (0.7-4.9); Hematocrit 41.6 % (39.6-49.0); Lymphocytes % 28.1 % (15.3-44.8); MPV 6.6 fL (7.6-11.3); RBC Red Blood Cell Count 5.03 M/uL (4.33-5.43)
[2021-12-14 10:27] LABS: Potassium 3.8 mmol/L (3.5-5.1)
--- NOTE | 2021-12-14 11:04 | RAD REPORT ---
EXAM DESCRIPTION: RAD - Hip Right 2 View - 12/14/2021 10:29 am CLINICAL HISTORY: PAIN COMPARISON: Hip Right 2 View dated 11/02/2021 FINDINGS: No acute fracture. No malalignment. Right hip degenerative changes. IMPRESSION: No acute osseous abnormality involving the right hip.
[2021-12-14 11:08] VITALS: TEMP 97.7
[2021-12-14 11:09] VITALS: BP 130/73; O2SAT 97
== END 2021-12-14 11:01 | disposition home or self-care (01) ==
LOC: ER 09:10
DX: G89.29 Other chronic pain (principal); Z88.5 Allergy status to narcotic agent; Z88.8 Allergy status to other drugs, medicaments and biological substances
CPT/HCPCS: 96361; 85025; 80048; 36415; 73502; 96375; 96374; 99284; J1170; J7040; J2405

== ENCOUNTER 2021-12-17 15:01 | Emergency (ER) | payer OTHER ==
--- OUTSIDE RECORDS SUMMARY | 2021-12-17 15:08 | XMS REPORT | Continuity of Care Document ---
:1950 Author Organization [facility] t Address [address] [place] [address] [address] [place] [address] Care Team Providers Name Role Phone Edy [...] Expiration Date S ource MEDICARE PART A [id number] 2007 \\T\\ B 00:00:00 [employer] INDEMNITY [id number] 2016 00:00:00 MEDICARE PART A [id number] 2014 \\T\\ B - MEDICARE 00:00:00 INDEMNITY/TRADITIO [id number] 1478-04-03 NAL CHOICE - [employer] 00:00:00 Problems Condition [...] ents Source Name Type Date Date Clinician Wilbarger [employer] Active Rash 2020- Univers ty to [...] INGREDI 3-16 ity of 00:00: [place] 00 [facility] Branch GLIMEPIR DRUG Active Hives Univers EFREN INGREDI 3-16 ity of 00:00: [place] 00 Medical Branch METFORMI DRUG Active ITCHING Univers N INGREDI 3-16 ity of 00:00: [place] 00 Medical Branch Social History Social Habit Start Date Stop Date Quantity Comments Source Exposure to Not sure [place] of SARS-CoV-2 [facility] (event) Branch History of Chews Tobacco University of tobacco use [facility] History SDOH 2020-11-17 2020-11-17 5 University o f Financial 00:00:00 00:00:00 [facility] History [facility] Food 2020-11-17 2020-11-17 1 Univers ity of Worry 00:00:00 00:00:00 [facility] History [facility] Food 2020-11-17 2020-11-17 1 Univers ity of Scarcity 00:00:00 00:00:00 [facility] History [facility] 2020-11-17 2020-11-17 1 University o f Transport Med 00:00:00 00:00:00 [facility] al Branch History [facility] 2020-11-17 2020-11-17 1 University o f Transport Non-Med 00:00:00 00:00:00 [facility] edical Branch Education 2020-11-16 2020-11-16 21 [place] of 00:00:00 00:00:00 [facility] Alcohol intake 2020-11-16 2020-11-16 Ex-drinker [place] of 00:00:00 00:00:00 (finding) [facility] Tobacco use and 2020-08-21 2020-08-21 Former user Universi ty of exposure 00:00:00 00:00:00 [facility] Tobacco Comment 2020-08-21 2020-08-21 quit 10 years Univer sity of 00:00:00 00:00:00 ago, started in [place] Med ical 2nd year of Branch college (~40 years) Alcohol Comment 2020-08-21 2020-08-21 Used to have 2-3 Uni versity of 00:00:00 00:00:00 six-packs of [place] Medica l beer daily x 20 Branch years, quit 2005 History [facility] 2020-08-21 2020-08-21 99 University o f Alcohol Frequency 00:00:00 00:00:00 [place] M edical Branch History SDMS 2020-08-21 2020-08-21 99 [place] o f Alcohol Std 00:00:00 00:00:00 [place] [facility] Drinks Branch History SDMS 2020-08-21 2020-08-21 99 University o f Alcohol Binge 00:00:00 00:00:00 [place] [facility] al Branch Sex [birth year] Universit y of 00:00:00 00:00:00 [place] [facility] [place] Smoking Status Start Date Stop Date Source Never smoker [facility] Branch Medications Ordered Filled Start Stop Current [...] 0845, Until Discontinu ed, Routine amLODIPine Yes [id number] 10mg Take 1 Univers 10 mg 3-07 tablet by ity of tablet 00:00: mouth [place] 00 daily. Medical Branch clotrimazol Yes [id number] Apply to Univers e 1 % 3-07 face/ears, ity of topical 00:00: armpits, [place] cream 00 pannus and Medical back/any Branch other rash twice a day fluocinonid 0 Yes [id number] Apply to Univers e 0.05 % 3-07 scalp ity of solution 00:00: twice a [place] 00 day Medical Branch triamcinolo 0 Yes [id number] Apply to Univers ne 3-07 back, ity of acetonide 00:00: armpits [place] 0.1 % cream 00 and other Med ical affected Branch areas twice daily, please mix with clotrimazo le hydrOXYzine 0 Yes [id number] 10mg Take 1 Univers 10 mg 3-07 tablet by ity of tablet 00:00: mouth 2 00 (two) Medical times Branch daily. amLODIPine Yes [id number] 10mg Take 1 Univers 10 mg 3-07 tablet by ity of tablet 00:00: mouth 00 daily. Medical Branch clotrimazol 0 Yes [id number] Apply to Univers e 1 % 3-07 face/ears, ity of topical 00:00: armpits, [place] cream 00 pannus and Medical back/any Branch other rash twice a day fluocinonid 0 Yes [id number] Apply to Univers e 0.05 % 3-07 scalp ity of solution 00:00: twice a day Medical Branch triamcinolo Yes [id number] Apply to Univers ne 3-07 back, ity of acetonide 00:00: armpits [place] 0.1 % cream 00 and other Med ical affected Branch areas twice daily, please mix with clotrimazo le hydrOXYzine Yes [id number] 10mg Take 1 Univers 10 mg 3-07 tablet by ity of tablet 00:00: mouth 2 (two) Medical times Branch daily. amLODIPine Yes [id number] 10mg Take 1 Univers 10 mg 3-07 tablet by ity of tablet 00:00: mouth 00 daily. Medical Branch clotrimazol 0 Yes [id number] Apply to Univers e 1 % 3-07 face/ears, ity of topical 00:00: armpits, [place] cream 00 pannus and Medical back/any Branch other rash twice a day fluocinonid 2020-0 Yes [id number] Apply to Univers e 0.05 % 3-07 scalp ity of solution 00:00: twice a [place] 00 day Medical Branch triamcinolo 2020-0 Yes [id number] Apply to Univers ne 3-07 back, ity of acetonide 00:00: armpits [place] 0.1 % cream 00 and other Med ical affected Branch areas twice daily, please mix with clotrimazo le hydrOXYzine Yes [id number] 10mg Take 1 Univers 10 mg 3-07 tablet by ity of tablet 00:00: mouth 2 [place] 00 (two) Medical times Branch daily. amLODIPine Yes [id number] 10mg Take 1 Univers 10 mg 3-07 tablet by ity of tablet 00:00: mouth [place] 00 daily. Medical Branch clotrimazol Yes [id number] Apply to Univers e 1 % 3-07 face/ears, ity of topical 00:00: armpits, [place] cream 00 pannus and Medical back/any Branch other rash twice a day fluocinonid Yes [id number] Apply to Univers e 0.05 % 12-17 scalp ity of solution 00:00: twice a [place] 00 day Medical Branch triamcinolo Yes [id number] Apply to Univers ne 3-07 back, ity of acetonide 00:00: armpits [place] 0.1 % cream 00 and other Med ical affected Branch areas twice daily, please mix with clotrimazo le hydrOXYzine Yes [id number] 10mg Take 1 Univers 10 mg 3-07 tablet by ity of tablet 00:00: mouth 2 [place] 00 (two) Medical times Branch daily. cephALEXin 2020-2020- No [id number] 500mg Take 1 Univers 500 mg -04 14- capsule by ity of capsule 00:00: 05:59 mouth [place] 00 :00 every 6 Medical (six) Branch hours for 3 days. cephALEXin 2020-0 2020- No [id number] 500mg Take 1 Univers 500 mg 3-04 14-11 capsule by ity of capsule 00:00: 05:59 mouth [place] 00 :00 every 6 Medical (six) Branch hours for 3 days. hydrOXYzine 2020-2020- No [id number] 10mg Take 1 Univers 10 mg 3-04 [...] IV [place] 500 mL 00 :00 Piggyback, [facility] ONCE, 1 Branch dose, Fri12/15/20 at 1000, STAT HYDROmorpho Yes 4mg 4 mg, Unive rs ne 12-15 Oral, BID, ity of (DILAUDID) 15:30: First dose [place] tablet 4 mg 00 (after Medica l last Branch modificati on) on Fri12/15/20 at 0930, Until Discontinu ed, Routine amLODIPine 2020- No [id number] 10mg Take 1 Univers 10 mg 12-15 tablet by ity of tablet 00:00: 00:00 mouth [place] 00 :00 daily. Medical Branch HYDROmorpho No 1mg 1 mg, Univ ers ne 12-14 Oral, ity of (DILAUDID) 17:35: 15:18 Q6HPRN, [place] tablet 1 mg 30 :06 Starting Medi [facility] 12/14/20 Branch at 1135, Until Fri12/15/20 at 0918, Routine, Pain (scale 7-10) hydrOXYzine Yes 10mg 10 mg, [facility] ers (ATARAX) 12-14 Oral, BID, ity o f tablet 10 17:30: First dose [place] mg 00 on [facility] 12/14/20 at Branch 1130, Until Discontinu ed, Routine lisinopriL Yes 5mg 5 mg, Univer s (PRINIVIL,Z 12-14 Oral, ity of ESTRIL) 17:30: DAILY, [place] tablet 5 mg 00 First dose Me dical on [facility] 12/14/20 at 1130, Until Discontinu ed, Routine triamcinolo 2020- No [id number] Apply to [facility] 12-14 back, ity of acetonide 00:00: 00:00 armpits [place] 0.1 % cream 00 :00 and other Med ical affected Branch areas twice daily, please mix with clotrimazo le clotrimazol 2020- No [id number] Apply to Univers e 1 % 12-14 face/ears, ity of topical 00:00: 00:00 armpits, [place] cream 00 :00 pannus and Medical back/any Branch other rash twice a day fluocinonid 2020- No [id number] Apply to Univers e 0.05 % 12-14 scalp ity of solution 00:00: 00:00 twice a [place] 00 :00 day Medical Branch hydrOXYzine 2020- No [id number] 10mg Take 1 Univers 10 mg 12-14 [...] 1 [place] mg 00 :00 dose, [facility] 12/12/20 at Branch 2145, Routine insulin Yes 15U 15 Units, Unive rs glargine 12-12 Subcutaneo ity o f (LANTUS 15:00: [place], DAILY, [place] U-100) 00 First dose Medical injection on [facility] 15 Units 12/12/20 at 0900, Until Discontinu ed hydrOXYzine 2020- No 10mg 10 mg, Uni vers (ATARAX) 12-12 03-02 Oral, ity of tablet 10 08:15: 07:33 ONCE, 1 [place] mg 00 :00 dose, [facility] 12/12/20 at Branch 0215, Routine mirtazapine Yes 7.5mg 7.5 mg, Un toi (REMERON) 3-02 Oral, QHS, ity of tablet 7.5 03:00: First dose [place] mg 00 on [facility] 12/11/20 at Branch 2100, Until Discontinu ed, Routine venlafaxine Yes 300mg 300 mg, Un toi XR (EFFEXOR 3-02 Oral, QHS, it y of XR) 24 hr 03:00: First dose [place] capsule 300 00 on [facility] Medica l mg 12/11/20 at [...] mg 00 First dose Medical on Fri [place] 12/11/20 at 1700, Until Discontinu ed, Routine [...] Yes 5U 5 Units, [facility] s lispro 12-11 Subcutaneo ity of (human) 18:00: us, TID [place] (HumaLOG 00 MEALS, Medical U-100) First dose Branch injection 5 on [facility] Units 12/11/20 at 1200, Until Discontinu ed Polyethylen Yes 17g 17 g, [facility] rs e Glycol 12-11 Oral, ity of 3350 17:47: [id number], [place] (MIRALAX) 05 Starting Medica l powder [...]
Duration of therapy: 72 hours sennosides- Yes [id number] 1{tbl} Take 1 [facility] docusate 2-09 tablet by ity of sodium 00:00: mouth 2 [place] 8.6-50 mg 00 (two) Medical per tablet times Branch daily. hydrocortis Yes [id number] Apply to [facility] one 2.5 % 11-21 affected ity of cream 00:00: area(s) 2 [place] 00 (two) Medical times Branch daily. blood sugar Yes [id number] Use to [facility] diagnostic 2 check ity of (FREESTYLE 00:00: blood [place] LITE 00 glucose Medical STRIPS) 4-5 times Branch strip daily. Polyethylen Yes [id number] 17g Take 1 Univers e Glycol 2-09 Packet by ity of 3350 17 00:00: mouth [place] gram powder 00 every 24 Medi jose c (twenty-fo Branch ur) hours as needed for Constipati on. sennosides- Yes [id number] 1{tbl} Take 1 Univers docusate 2-09 tablet by ity of sodium 00:00: mouth 2 [place] 8.6-50 mg 00 (two) Medical per tablet times Branch daily. hydrocortis 2020-0 Yes [id number] Apply to Univers one 2.5 % 2-09 affected ity of cream 00:00: area(s) 2 [place] 00 (two) Medical times Branch daily. blood sugar 2020-0 Yes [id number] Use to Univers diagnostic 11-21 check ity of (FREESTYLE 00:00: blood [place] LITE 00 glucose Medical STRIPS) 4-5 times Branch strip daily. Polyethylen 2020-0 Yes [id number] 17g Take 1 Univers e Glycol 2-09 Packet by ity of 3350 17 00:00: mouth [place] gram powder 00 every 24 Medi jose c (twenty-fo Branch ur) hours as needed for Constipati on. sennosides- 2020-0 Yes [id number] 1{tbl} Take 1 Univers docusate 2-09 tablet by ity of sodium 00:00: mouth 2 [place] 8.6-50 mg 00 (two) Medical per tablet times Branch daily. hydrocortis 2020-0 Yes [id number] Apply to Univers one 2.5 % 2-09 affected ity of cream 00:00: area(s) 2 [place] 00 (two) Medical times Branch daily. blood sugar 2020-0 Yes [id number] Use to [facility] diagnostic 11-21 check ity of (FREESTYLE 00:00: blood [place] LITE 00 glucose Medical STRIPS) 4-5 times Branch strip daily. Polyethylen 2020-0 Yes [id number] 17g Take 1 Univers e Glycol 2-09 Packet by ity of 3350 17 00:00: mouth [place] gram powder 00 every 24 Medi jose c (twenty-fo Branch ur) hours as needed for Constipati on. sennosides- 2020-0 Yes [id number] 1{tbl} Take 1 Univers docusate 2-09 tablet by ity of sodium 00:00: mouth 2 [place] 8.6-50 mg 00 (two) Medical per tablet times Branch daily. hydrocortis 2020-0 Yes [id number] Apply to Univers one 2.5 % 2-09 affected ity of cream 00:00: area(s) 2 [place] 00 (two) Medical times Branch daily. blood sugar Yes [id number] Use to [facility] diagnostic 11-21 check ity of (FREESTYLE 00:00: blood [place] LITE 00 glucose Medical STRIPS) 4-5 times Branch strip daily. Polyethylen Yes [id number] 17g Take 1 Univers e Glycol 11-21 Packet by ity of 3350 17 00:00: mouth [place] gram powder 00 every 24 Medi jose c (twenty-fo Branch ur) hours as needed for Constipati on. Insulin 2020- No [id number] 15U inject 15 Univers Glargine 11-21 Units ity of (LANTUS 00:00: 05:59 under the [place] SOLOSTAR 00 :00 skin every Medic al U-100 morning Branch INSULIN) for 30 100 unit/mL days. (3 mL) injection venlafaxine 2020- No [id number] 150mg Take 1 Univers XR 150 mg 11-21 capsule by ity of 24 hr 00:00: 05:59 mouth 3 [place] capsule 00 :00 (three) Medical times Branch daily for 30 days. Insulin 2020- No [id number] 15U inject 15 Univers Glargine 11-21 Units ity of (LANTUS 00:00: 05:59 under the [employer] SOLOSTAR 00 :00 skin every Medic al U-100 morning Branch INSULIN) for 30 100 unit/mL days. (3 mL) injection venlafaxine 2020- No [id number] 150mg Take 1 Univers XR 150 mg 11-21 capsule by ity of 24 hr 00:00: 05:59 mouth 3 [place] capsule 00 :00 (three) Medical times Branch daily for 30 days. triamcinolo 2020- No [id number] Apply to [facility] ne 11-21 area(s) 2 ity of acetonide 00:00: 00:00 (two) [place] 0.1 % cream 00 :00 times Medical daily. Branch cephALEXin 2020- No [id number] 1000mg Take 2 Univers 500 mg 11-21 capsules ity of capsule 00:00: 00:00 by mouth 3 [place] 00 :00 (three) Medical times Branch daily. doxycycline 2020- No [id number] 100mg Take 1 Univers hyclate 100 11-21 capsule by i ty of mg capsule 00:00: 00:00 mouth [place] 00 :00 every 12 Medical (twelve) Branch hours. lactobacill 2020- No [id number] 1{tbl} Take 1 Univers us 11-21 tablet by ity of acidophilus 00:00: 00:00 mouth 2 [place] 25 million 00 :00 (two) Medical cell -100 times Branch mg captab daily. bisacodyL 2020- No [id number] 10mg Insert 1 Univers 10 mg 11-21 Suppositor ity of suppository 00:00: 00:00 y into [place] 00 :00 rectum at Medical bedtime as Branch needed for Constipati on. ALPRAZolam 2020- No [id number] .25mg Take 1 Univers (XANAX) 11-21 tablet by ity of 0.25 mg 00:00: 00:00 mouth 2 [place] tablet 00 :00 (two) Medical times Branch daily. hydrOXYzine 2020- No [id number] 20mg Take 2 Univers 10 mg 11-21 [...] ity of (LANTUS 01:13: under the [place] SOLOSTPR) 36 skin. Medical 100 unit/mL Branch (3 mL) InPn INSULIN 2019-10 Yes 5U inject 5 Univer s ASPART 1-12 Units ity of (NOVOLOG 01:13: under the [facility] s FLEXPEN SC) 36 skin. Medical [...] ity of (LANTUS 01:13: under the [place] SOLOSTPR) 36 skin. Medical 100 unit/mL Branch (3 mL) In INSULIN 2019- Yes 5U inject 5 Univer s ASPART 1-12 Units ity of (NOVOLOG 01:13: under the [facility] FLEXPEN SC) 36 skin. Medical [...] Units ity of (LANTUS 01:13: under the [facility]) 36 skin. Medical 100 unit/mL Branch (3 mL) In INSULIN 2019- Yes 5U inject 5 Univer s ASPART 1-12 Units ity of (NOVOLOG 01:13: under the [facility] FLEXPEN DE) 36 skin. Medical Branch ALPRAZolam 2019- Yes [...] Units ity of (NOVOLOG 01:13: under the [facility] s FLEXPEN SC) 36 skin. Medical [...] 34 :00 Medical Branch hydrocortis 2019- Yes [id number] Apply to Univers one 2.5 % 1-11 affected ity of cream 00:00: area(s) 2 [place] (two) Medical times Branch daily. hydrOXYzine 2019-10 Yes [id number] 20mg Take 2 Univers 10 mg 1-11 tablets by ity of tablet 00:00: mouth [place] 00 every 8 Medical (eight) Branch hours as needed for Itching or Anxiety. Polyethylen 2019-10 Yes [id number] 17g Take 1 Univers e Glycol 1-11 Packet by ity of 3350 17 00:00: mouth [place] gram powder 00 every 24 Medi jose c (twenty-fo Branch ur) hours as needed for Constipati on. hydrocortis 2019-10 Yes [id number] Apply to Univers one 2.5 % 1-11 affected ity of cream 00:00: area(s) 2 [place] (two) Medical times Branch daily. hydrOXYzine 2019- Yes [id number] 20mg Take 2 Univers 10 mg 1-11 tablets by ity of tablet 00:00: mouth [place] 00 every 8 Medical (eight) Branch hours as needed for Itching or Anxiety. Polyethylen 2019- Yes [id number] 17g Take 1 Univers e Glycol 1-11 Packet by ity of 3350 17 00:00: mouth [place] gram powder 00 every 24 Medi jose c (twenty-fo Branch ur) hours as needed for Constipati on. hydrocortis 2019- Yes [id number] Apply to Univers one 2.5 % 1-11 affected ity of cream 00:00: area(s) 2 [place] 00 (two) Medical times Branch daily. hydrOXYzine 2019- Yes [id number] 20mg Take 2 Univers 10 mg 1-11 tablets by ity of tablet 00:00: mouth [place] 00 every 8 Medical (eight) Branch hours as needed for Itching or Anxiety. Polyethylen 2020- Yes [id number] 17g Take 1 Univers e Glycol 1-11 Packet by ity of 3350 17 00:00: mouth [place] gram powder 00 every 24 Medi jose c (twenty-fo Branch ur) hours as needed for Constipati on. hydrocortis 2019- Yes [id number] Apply to Univers one 2.5 % 1-11 affected ity of cream 00:00: area(s) 2 [place] 00 (two) Medical times Branch daily. hydrOXYzine 2019- Yes [id number] 20mg Take 2 Univers 10 mg 1-11 tablets by ity of tablet 00:00: mouth [place] 00 every 8 Medical (eight) Branch hours as needed for Itching or Anxiety. Polyethylen 2019- Yes [id number] 17g Take 1 Univers e Glycol 1-11 Packet by ity of 3350 17 00:00: mouth [place] gram powder 00 every 24 Medi jose c (twenty-fo Branch ur) hours as needed for Constipati on. hydrocortis 2019- Yes [id number] Apply to Univers one 2.5 % 1-11 affected ity of cream 00:00: area(s) 2 [place] 00 (two) Medical times Branch daily. hydrOXYzine 2019- Yes [id number] 20mg Take 2 Univers 10 mg 1-11 tablets by ity of tablet 00:00: mouth [place] 00 every 8 Medical (eight) Branch hours as needed for Itching or Anxiety. Polyethylen 2019- Yes [id number] 17g Take 1 Univers e Glycol 1-11 Packet by ity of 3350 17 00:00: mouth [place] gram powder 00 every 24 Medi jose c (twenty-fo Branch ur) hours as needed for Constipati on. hydrocortis 2019- Yes [id number] Apply to Univers one 2.5 % 1-11 affected ity of cream 00:00: area(s) 2 [place] 00 (two) Medical times Branch daily. hydrOXYzine 2019- Yes [id number] 20mg Take 2 Univers 10 mg 1-11 tablets by ity of tablet 00:00: mouth [place] 00 every 8 Medical (eight) Branch hours as needed for Itching or Anxiety. Polyethylen 2020- Yes [id number] 17g Take 1 Univers e Glycol 1-11 Packet by ity of 3350 17 00:00: mouth [place] gram powder 00 every 24 Medi jose c (twenty-fo Branch ur) hours as needed for Constipati on. hydrocortis 2019-10 Yes [id number] Apply to [facility] one 2.5 % 1-11 affected ity of cream 00:00: area(s) 2 [place] 00 (two) Medical times Branch daily. hydrOXYzine 2019-10 Yes [id number] 20mg Take 2 Univers 10 mg 1-11 tablets by ity of tablet 00:00: mouth [place] 00 every 8 Medical (eight) Branch hours as needed for Itching or Anxiety. Polyethylen 2019-10 Yes [id number] 17g Take 1 Univers e Glycol 1-11 Packet by ity of 3350 17 00:00: mouth [place] gram powder 00 every 24 Medi jose c (twenty-fo Branch ur) hours as needed for Constipati on. triamcinolo 2019-10 2020- No [id number] Apply to [facility] 10-23 area(s) 2 ity of acetonide 00:00: 05:59 (two) [place] 0.1 % cream 00 :00 times Medical daily for Branch 14 days. triamcinolo 2019-10 2020- No [id number] Apply to [facility] 10-23 area(s) 2 ity of acetonide 00:00: 05:59 (two) [place] 0.1 % cream 00 :00 times Medical daily for Branch 14 days. triamcinolo 2019-10 2020- No [id number] Apply to [facility] 10-23 area(s) 2 ity of [...] s tablet 1 mg 53 Starting Medi ojse c Tue Branch 08/22/20 at 0907, Until Discontinu ed, Routine, Pain (scale 7-10) hydrocortis 2019- Yes Topical Uni vers one 2.5 % 1-10 (Apply To ity o f cream 02:00: Affected [place] 00 Areas), Medical BID, First Branch dose on [facility] 08/21/20 at 2000, Until Discontinu ed, Routine triamcinolo 2019- Yes Topical, Un toi ne 1-10 BID, First ity of acetonide 02:00: dose on [place] (TRIDERM) 00 [facility] Medical 0.1 % cream 08/21/20 at Br anch 2000, Until Discontinu ed, Routine hydrOXYzine 2019-10 Yes 20mg 20 mg, Univ ers (ATARAX) 09 Oral, ity of tablet 20 17:39: Q8HPRN, [place] mg 12 Starting Medical [facility] Branch 08/21/20 at 1139, Until Discontinu ed, Routine, Itching, Anxiety sennosides- 2019-10 Yes 1{tbl} 1 tablet, Univers docusate 10-21 Oral, ity of sodium 15:00: DAILY, [place] (SENOKOT-S) 00 First dose Me dical 8.6-50 mg on [facility] Branch per tablet 08/21/20 at 1 [...] dose [place] capsule 150 00 on [facility] Medica l mg 08/21/20 at Branch 0800, Until Discontinu ed, Routine heparin 2019- Yes 5000U 5,000 Univers (porcine) -09 Units, ity of injection 14:00: Subcutaneo [place] 5,000 Units 00 us, Q12H, Med ical First dose Branch on [facility] 08/21/20 at 0800, Until Discontinu ed, Routine diphenhydrA 2019-10 2020- No 25mg 25 mg, Uni vers MINE 10-21 Oral, ity of (BENADRYL) 12:56: 17:39 Q8HPRN, [place] tablet 25 59 :43 Starting Medica l mg [facility] 08/21/20 at 0656, Until [facility] 08/21/20 at 1139, Routine, Itching, Mild Rash, Congestion /Allergies , alternate with hydroxyzin e hydrOXYzine 2019-10- No 10mg 10 mg, Uni vers (ATARAX) 10-21 Oral, ity of tablet 10 10:20: 12:57 Q6HPRN, [place] mg 22 :12 Starting [facility] 08/21/20 at 0420, Until [facility] 08/21/20 at 0657, Routine, Itching, Anxiety Sliding 2019-10 Yes Subcutaneo Univ ers Scale 09 us, Q4H, ity of Insulin - 10:00: First dose [place] Aspart 00 (after Medical (NOVOLOG) + last Branch Fsbg modificati Testing on) on [facility] 08/21/20 at 0400, Until Discontinu ed, Routine lidocaine 5 2019-10- No Topical, U nivers % ointment 10-21 ONCE, 1 ity o f 09:30: 09:14 dose, [facility] 00 :00 08/21/20 at [facility] 0330, Branch Routine Polyethylen 2019-10 Yes 17g 17 g, [facility] rs e Glycol 10-21 Oral, ity of 3350 08:29: [id number], [place] (MIRALAX) 09 Starting Medica l powder 17 g [facility] 08/21/20 at 0229, Until Discontinu ed, Routine, Constipati on lanolin 2019-10 Yes Topical, Univer s alcohol-mo- 10-21 PRN, ity of w.pet-ceres 08:26: Starting [place] (EUCERIN) 30 [facility] cream 08/21/20 at Branch 0226, Until Discontinu ed, Routine, Dermatitis /Rash ALPRAZolam 2019-10 Yes .25mg 0.25 mg, Un toi (XANAX) 10-21 Oral, ity of tablet 0.25 08:25: BIDPRN, [place] mg 41 Starting [facility] 08/21/20 at 0225, Until Discontinu ed, Routine, [...] (scale 1-3) sotalol 2019-10- No Take by [facility] (BETAPACE) 10-21 mouth ity of 240 mg 07:43: 00:00 every 12 [place] tablet 30 :00 (twelve) Medical hours. Branch blood sugar Yes Use to [employer] [employer] diagnostic 4-25 check ity of (FREESTYLE 00:00: blood [place] LITE 00 glucose Medical STRIPS) 4-5 times Branch strip daily. blood sugar Yes Use to [employer] [employer] diagnostic -25 check ity of (FREESTYLE 00:00: blood [place] LITE 00 glucose Medical STRIPS) 4-5 times Branch strip daily. blood sugar Yes Use to [employer] diagnostic -25 check ity of (FREESTYLE 00:00: blood [place] LITE 00 glucose Medical STRIPS) 4-5 times Branch strip daily. blood sugar Yes Use to [employer] [facility] diagnostic -25 check ity of (FREESTYLE 00:00: blood [place] LITE 00 glucose Medical STRIPS) 4-5 times Branch strip daily. blood sugar Yes Use to [employer] diagnostic -25 check ity of (FREESTYLE 00:00: blood [place] LITE 00 glucose Medical STRIPS) 4-5 times Branch strip daily. blood sugar Yes Use to [facility] [facility] ers diagnostic 4-25 check ity of (FREESTYLE [...] 13:00:00 84 mm[Hg] Unive rsity of pressure [facility] Heart rate 2021-08-22 13:00:00 103 /min [facility] Respiratory rate 2021-08-22 13:00:00 18 /min Univ ersity of [facility] Oxygen saturation in 2021-08-22 13:00:00 95 /min University of Arterial blood by [facility] Pulse oximetry Branch Body temperature 2021-08-22 12:22:00 36.72 [place] [facility] ersity of [facility] Systolic blood 2020-12-17 18:35:00 139 mm[Hg] Univer sity of pressure [facility] Diastolic blood 2020-12-17 18:35:00 87 mm[Hg] Unive rsity of pressure [facility] [place] Heart rate 2020-12-17 18:35:00 110 /min [facility] Body temperature 2020-12-17 18:35:00 37.72 [place] [facility] ersity of [facility] Respiratory rate 2020-12-17 18:35:00 18 /min Univ ersity of [facility] Oxygen saturation in 2020-12-17 18:35:00 93 /min University of Arterial blood by [facility] Pulse oximetry Branch Body height 2020-12-12 08:21:00 180.3 cm [facility] Body weight 2020-12-12 08:21:00 103.42 kg [facility] BMI 2020-12-12 08:21:00 31.80 kg/m2 [facility] Systolic blood 2020-12-17 18:35:00 139 mm[Hg] Univer sity of pressure [facility] Diastolic blood 2020-12-17 18:35:00 87 mm[Hg] Unive rsity of pressure [facility] Heart rate 2020-12-17 18:35:00 110 /min Universi ty [facility] [place] Body temperature 2020-12-17 18:35:00 37.72 [place] Univ ersity of [facility] Respiratory rate 2020-12-17 18:35:00 18 /min Univ ersity of [facility] Oxygen saturation in 2020-12-17 18:35:00 93 /min University of Arterial blood by [place] [employer] [facility] Pulse oximetry Branch Body height 2020-12-12 08:21:00 180.3 cm [facility]i ty [facility] [place] Body weight 2020-12-12 08:21:00 103.42 kg Universi ty of [facility] BMI 2020-12-12 08:21:00 31.80 kg/m2 [facility] ty [facility] Systolic blood 2020-08-23 19:27:00 140 mm[Hg] Univer sity of pressure [facility] Diastolic blood 2020-08-23 19:27:00 79 mm[Hg] Unive rsity of pressure [facility] Heart rate 2020-08-23 19:27:00 99 /min Universi ty of [facility] Body temperature 2020-08-23 19:27:00 36 [place] Univ ersity of [facility] Respiratory rate 2020-08-23 19:27:00 18 /min Univ ersity of [facility] Oxygen saturation in 2020-08-23 19:27:00 93 /min University of Arterial blood by [place] [employer] [facility] Pulse oximetry Branch Body weight [...] Body temperature 2020-08-23 19:27:00 36 [place] [facility] Respiratory rate 2020-08-23 19:27:00 18 /min [facility] Oxygen saturation in 2020-08-23 19:27:00 93 /min [facility] Arterial blood by [facility] Pulse oximetry [place] Body weight 2020-08-21 07:20:00 104.962 kg [facility] BMI 2020-08-21 07:20:00 32.27 kg/m2 [facility] Procedures Procedure Date / Time Performing Clinician Source Performed POCT GLUCOSE (AUTOMATED) 2020-12-17 15:42:00 Harrison[facility]OL[facility] PANEL 2020-12-17 10:45:[address] [facility] (NA, K, CL, CO2, GLUCOSE, [facility] BUN, CREATININE, CA) CBC WITH DIFF 2020-12-17 10:45:00 Paul Bean [facility] POCT GLUCOSE (AUTOMATED) 2020-12-17 02:36:00 Harrison, Premal G Uni [facility] XR TIBIA FIBULA 2 VW LEFT 2020-12-16 23:38:00 Paul Bean [facility] POCT GLUCOSE (AUTOMATED) 2020-12-16 23:20:00 Harrison, [facility] PO[facility]UCOSE (AUTOMATED) 2020-12-16 20:10:00 Harrison, [facility] PO[facility]UCOSE (AUTOMATED) 2020-12-16 14:43:00 Harrison, [facility]al [facility] BASIC METABOLIC PANEL 2020-12-16 13:51:[address] [facility] (NA, K, CL, CO2, GLUCOSE, [facility] BUN, CREATININE, CA) CBC WITH DIFF 2020-12-16 13:51:00 Paul Bean [facility] POCT GLUCOSE (AUTOMATED) 2020-12-16 04:00:00 Harrison, [facility]al [facility] POCT GLUCOSE (AUTOMATED) 2020-12-16 00:14:00 Harrison, Premal G Uni versity of [facility] CT CHEST PULMONARY 2020-12-15 22:29:38 Paul Bean [facility] ANGIOGRAM [facility] POCT GLUCOSE (AUTOMATED) 2020-12-15 19:26:00 Harrison, Premal G Uni versity of [facility] POCT GLUCOSE (AUTOMATED) 2020-12-15 15:13:00 Harrison, Premal G Uni versity of [facility] HB ECG ROUTINE & RHYTHM 2020-12-15 14:25:27 Cailin Romo [facility] Branch MAGNESIUM 2020-12-15 12:01:00 Paul Bean Sivakumar [facility] BASIC METABOLIC PANEL 2020-12-15 12:01:[address] [facility] (NA, K, CL, CO2, GLUCOSE, [facility] BUN, CREATININE, CA) CBC WITH DIFF 2020-12-15 12:01:00 Paul Bean Sivakumar [facility] POCT GLUCOSE (AUTOMATED) 2020-12-15 03:57:00 Harrison, Premal G Uni versity of [facility] POCT GLUCOSE (AUTOMATED) 2020-12-14 23:31:00 Harrison, Premal G Uni versity of [facility] POCT GLUCOSE (AUTOMATED) 2020-12-14 19:08:00 Harrison, Premal G Uni versity of [facility] POCT GLUCOSE (AUTOMATED) 2020-12-14 15:11:00 Harrison, Premal G Uni versity of [facility] POCT GLUCOSE (AUTOMATED) 2020-12-14 02:36:00 Harrison, Premal G Uni versity of [facility] POCT GLUCOSE (AUTOMATED) 2020-12-13 23:32:00 Harrison, Premal G Uni versity of [facility] POCT GLUCOSE (AUTOMATED) 2020-12-13 18:08:00 Harrison, Premal G Uni versity of [facility] BASIC METABOLIC PANEL 2020-12-13 15:39:[address] [facility] (NA, K, CL, CO2, GLUCOSE, [facility] BUN, CREATININE, CA) CBC WITH DIFF 2020-12-13 15:39:00 Paul Bean Sivakumar [facility] POCT GLUCOSE (AUTOMATED) 2020-12-13 14:06:00 Harrison, [facility] POCT GLUCOSE (AUTOMATED) 2020-12-13 03:07:00 Harrison, [facility]al [facility] POCT GLUCOSE (AUTOMATED) 2020-12-12 23:52:00 Harrison, Premal [facility] POCT GLUCOSE (AUTOMATED) 2020-12-12 20:28:00 Harrison, [facility]al [facility] POCT GLUCOSE (AUTOMATED) 2020-12-12 19:14:00 Harrison, Premal [facility] POCT GLUCOSE (AUTOMATED) 2020-12-12 14:33:00 Harrison, Premal [facility] MAGNESIUM 2020-12-12 08:58:00 Paul Bean Sivakumar [facility] BASIC METABOLIC PANEL 2020-12-12 08:58:[address] [facility] (NA, K, CL, CO2, GLUCOSE, [facility] BUN, CREATININE, CA) CBC WITH DIFF 2020-12-12 08:58:00 Paul Bean Sivakumar [facility] US ABDOMEN LIMITED 2020-12-12 06:32:26 [facility] POCT GLUCOSE (AUTOMATED) 2020-12-12 03:40:00 Harrison, Premal G Uni [facility] POCT GLUCOSE (AUTOMATED) 2020-12-12 00:06:00 Harrison, Premal G Uni [facility] XR HIPS 3 VW LEFT 2020-12-11 20:20:00 Darnell Beanaham Sivakumar [facility] HB ECG ROUTINE & RHYTHM 2020-12-11 20:04:06 Cailin Romo [facility] VITAMIN B6, PLASMA 2020-12-11 19:17:00 [facility] POCT GLUCOSE (AUTOMATED) 2020-12-11 19:06:00 Rene Harrison [facility] CREATINE KINASE 2020-12-11 18:22:00 Clarisse Hannon [facility] VITAMIN B12, LEVEL 2020-12-11 18:22:00 Paul Bean [facility] FOLATE 2020-12-11 18:22:00 Vikas [facility] THYROID STIMULATING 2020-12-11 18:22:00 Cailin Romo [facility] HORMONE [facility] PROCALCITONIN 2020-12-11 18:22:00 Vikas [facility] VITAMIN B1 (THIAMINE), 2020-12-11 18:22:00 Paul Bean Sivakumar [facility] WHOLE BLOOD [facility] CT HEAD WO CONTRAST 2020-12-11 14:07:35 Sweetie [facility] URINALYSIS 2020-12-11 13:44:00 [facility] URINE CULTURE 2020-12-11 13:44:00 [facility] COVID-19 (ID NOW RAPID 2020-12-11 12:31:[address] [facility] TESTING) [facility] LAB ONLY COVID 2020-12-11 12:31:00 [facility] XR CHEST 1 VW 2020-12-11 12:07:24 [facility] BLOOD CULTURE SCREEN 2020-12-11 12:02:00 Paco Lacey [facility] MAGNESIUM 2020-12-11 12:02:00 Paul Bean Sivakumar [facility] FERRITIN SERUM 2020-12-11 12:02:00 Darnell Beanaham Sivakumar [facility] COMP. METABOLIC PANEL 2020-12-11 12:02:00 Paco Lacey [facility] ([id number]) Medical Branch CBC WITH DIFF 2020-12-11 12:02:00 [facility] LACTIC ACID WHOLE BLOOD 2020-12-11 12:02:00 Paco Lacey [facility] BLOOD CULTURE SCREEN 2020-12-11 11:42:00 Paco Lacey [facility] EMERGENCY SERVICES 2020-12-11 06:01:00 Doctor Tabitha [facility] AGREEMENTS AND [place] [facility] AUTHORIZATIONS HOSPITAL ADMISSION 2020-12-11 06:01:00 Doctor Tabitha [facility] Name [facility] HEALTH - OTHER 2020-11-11 06:01:[address] [facility] [place] [facility] HEALTH - OTHER 2020-10-30 06:01:00 Doctor Tabitha [facility] Name Medical [place] EXTERNAL PROVIDER RECORDS 2020-09-01 06:01:00 Doctor Tabitha [facility] Name [facility] POCT GLUCOSE (AUTOMATED) 2020-08-23 18:09:00 Kelly Washington [facility] POCT GLUCOSE (AUTOMATED) 2020-08-23 14:14:00 Kelly Washington [facility] MAGNESIUM 2020-08-23 11:18:[address] [facility] BASIC METABOLIC PANEL 2020-08-23 11:18:00 [facility] (NA, K, CL, CO2, GLUCOSE, Medica l Branch BUN, CREATININE, CA) CBC WITH DIFF 2020-08-23 11:18:[address] [facility] POCT GLUCOSE (AUTOMATED) 2020-08-23 10:21:00 [facility] ([facility]ATED) 2020-08-23 05:55:00 Kelly Washington [facility] POCT GLUCOSE (AUTOMATED) 2020-08-23 03:00:00 Kelly Washington [facility] POCT GLUCOSE (AUTOMATED) 2020-08-22 23:38:00 Kelly Washington [facility] POCT GLUCOSE (AUTOMATED) 2020-08-22 19:04:00 Kelly Washington [facility] POCT GLUCOSE (AUTOMATED) 2020-08-22 13:49:00 Kelly Washington [facility] MAGNESIUM 2020-08-22 10:10:00 [facility] 2020-08-22 10:10:00 Jill Aguila [facility] ([id number]) (ALB,T.PRO,BILI Medical Branch T,BU/BC,ALT,AST,ALK PHOS) BASIC METABOLIC PANEL 2020-08-22 10:10:00 [place], [facility] (NA, K, CL, CO2, GLUCOSE, Medica l Branch BUN, CREATININE, CA) LIPID PANEL ([id number])(TOTAL 2020-08-22 10:10:00 [place], [facility] TRIGLYCERIDES, HDL) CBC WITH DIFF 2020-08-22 10:10:[address] [facility] POCT GLUCOSE (AUTOMATED) 2020-08-22 10:10:00 Kelly Washington [facility] POCT GLUCOSE (AUTOMATED) 2020-08-22 07:13:00 Kelly Washington [facility] POCT GLUCOSE (AUTOMATED) 2020-08-22 02:24:00 Kelly Washington [facility] POCT GLUCOSE (AUTOMATED) 2020-08-21 23:40:00 Kelly Washington [facility] POCT GLUCOSE (AUTOMATED) 2020-08-21 18:10:00 Kelly Washington [facility] POCT GLUCOSE (AUTOMATED) 2020-08-21 13:39:00 Kelly Washington [facility] ETHANOL 2020-08-21 12:35:00 Jos Quiroz [facility] ACTIVATED PARTIAL 2020-08-21 12:35:00 Padmini [facility] THRMPLAS [facility] GALV ONLY - SYPHILIS 2020-08-21 12:35:00 Padmini Kelly [facility] IGG/IGM [facility] LACTATE DEHYDROGENASE 2020-08-21 10:09:00 Ramya, [facility] GALV/CLC ONLY - URINE 2020-08-21 10:09:00 Jos Quiroz [facility] DRUG (IMMUNOASSAY) - 4 ER Medica l Branch PANEL URINALYSIS 2020-08-21 10:09:00 Ramya, [facility] URINE CULTURE 2020-08-21 10:09:00 Ramya, [facility] PROCALCITONIN 2020-08-21 10:09:00 [place], [facility] POCT GLUCOSE (AUTOMATED) 2020-08-21 09:41:00 Kelly Washington [facility] PROTHROMBIN TIME / INR 2020-08-21 08:32:00 Ramya, [facility] ACTIVATED PARTIAL 2020-08-21 08:32:00 Ramya, [facility] THRMPLAS [facility] C-REACTIVE PROTEIN 2020-08-21 08:31:00 [place], [facility] HEPATIC FUNCTION PANEL 2020-08-21 08:31:00 [place], [facility] ([id number]) (ALB,T.PRO,BILI [facility] Branch T,BU/BC,ALT,AST,ALK PHOS) BASIC METABOLIC PANEL 2020-08-21 08:31:00 Ramya, [facility] (NA, K, CL, CO2, GLUCOSE, [facility] [place] BUN, CREATININE, CA) SEDIMENTATION RATE 2020-08-21 08:31:00 [place], [facility] CBC WITH DIFF 2020-08-21 08:31:00 Ramya, [facility] GLYCOSYLATED HEMOGLOBIN 2020-08-21 08:31:00 [place], [facility] (A1C) [facility] HIV 1/2 AG-AB WITH REFLEX 2020-08-21 08:31:00 [facility] (ID NOW RAPID 2020-08-21 08:20:00 Ramya, [facility] TESTING) Medical Branch LAB ONLY COVID 2020-08-21 08:20:00 Ramya, [facility] o f [facility] Encounters Start End Encounter Admission Attending Care Care Encounter Source Date/Time Date/Time Type Type Clinicians Facility Department ID 2020-08-21 Inpatient Shayy WASHINGTON [facility] KVNG [id number] Univers 01:07:00 KELLY cantu [facility] 2021-08-22 2021-08-22 Emergency X [facility] ERT [id number] Univers 06:21:00 08:02:00 SWEETIE cantu [facility] 2021-08-22 2021-08-22 [facility] [id number] Univers 06:21:00 08:02:00 Sweetie OREN [id number] i ty of [place] [id number] [facility] 084 Branch 2021-08-09 2021-08-09 Outpatient ZAKI, [facility] [id number] [facility] 10:27:03 10:27:03 ADRIANA lopez of Medicin e 2020-12-28 2020-12-28 Telephone [facility] 1.2.840.114 [id number] 00:00:00 00:00:00 Calvin H PRIMARY [id number] CARE 4.2.7.2.686 PAVILLION [id number] 220 2020-12-28 2020-12-28 Telephone [facility] 1.2.840.114 [id number] Univers 00:00:00 00:00:00 Calvin H PRIMARY [id number] it y of CARE 4.2.7.2.[address] [facility] [id number] Pr dical 220 Branch 2020-12-19 2020-12-19 Transition Tuan Peters 1.2.840.114 [id number] 00:00:00 00:00:00 of Care Ruchi Braswell [id number] [place] 4.2.7.2.686 [id number] 2020-12-19 2020-12-19 Transition Tuan Peters 1.2.840.114 [id number] Univers 00:00:00 00:00:00 of Care Ruchi Braswell [id number] [place] [id number] [facility] 403 Branch 2020-12-11 2020-12-17 [facility] Paco Lacey 1.2.840.1 [id number] 05:11:00 16:00:00 Encounter Rene Harrisony [id number] [facility] 4.2.7.2.686 [id number] [facility] 2020-12-11 2020-12-17 [facility] 1.2.840.1 [id number] [facility] 05:11:00 16:00:00 Encounter Rene Harrison [id number] ity of [facility] 4.2.7.2.686 [place] [id number] [facility] 096 [place] 2020-12-11 2020-12-11 [facility] [id number] Univers 05:11:00 05:11:00 [facility] 2020-11-16 2020-11-16 Emergency X [facility] ERT [id number] Univers 09:31:00 09:31:00 [facility] 2020-11-11 2020-11-11 Orders Doctor [place]IL[place] 1.2.840.114 [id number] 00:00:00 00:00:00 Only Unassigned, NATTY [id number] [place] [facility] 4.2.7.2.686 [id number] 009 2020-11-11 2020-11-11 Orders Doctor BASILIA 1.2.840.114 [id number] Univers 00:00:00 00:00:00 Only Unassigned, NATTY [id number] ity of [place] [facility] 4.2.7.2.686 Jeff as [id number] [facility] 009 [place] 2020-11-07 2020-11-07 Telephone Wilder [facility] [id number] 00:00:00 00:00:00 Angi Bosch [place] 350.1.13.10 [place] 4.2.7.2.686 Professio [id number] [address] 2020-11-07 2020-11-07 Telephone Hdz [facility] [id number] [facility] 00:00:00 00:00:00 Sendil Danitza [place] 350.1.13.10 ity of [place]2.[place] Profess[place] [id number] [address] 2020-10-30 2020-10-30 Orders Doctor BASILIA 1.2.840.114 [id number] 00:00:00 00:00:00 Only Unassigned, NATTY 350.1.13.10 [place] [facility] 4.2.7.2.686 [id number] [facility] 2020-10-30 2020-10-30 Orders Doctor CUI 1.2.840.114 [id number] Univers 00:00:00 00:00:00 Only Unassigned, NATTY 350.1.13.10 ity of [place] [facility] 4.2.7.2.686 Jeff as [id number] [address] 2020-09-26 2020-09-26 Telephone [facility] 1.2.840.114 [id number] 00:00:00 00:00:00 [facility] 350.1.13.10 CLINICS 4.2.7.2.686 [id number] [facility] 2020-09-26 2020-09-26 Telephone [facility] 1.2.840.114 [id number] Univers 00:00:00 00:00:00 [facility] 350.1.13.10 i ty of CL[place] [id number] [address] 2020-09-01 2020-09-01 Orders Doctor CUI 1.2.840.114 [id number] 00:00:00 00:00:00 Only Unassigned, NATTY 350.1.13.10 [place] [facility] 4.2.7.2.686 [id number] [id number] 2020-09-01 2020-09-01 Orders Doctor BASILIA 1.2.840.114 [id number] Univers 00:00:00 00:00:00 Only Unassigned, NATTY 350.1.13.10 ity of [place] [facility] 4.2.7.2.686 Jeff as [id number] [facility] 009 Branch 2020-08-25 2020-08-25 Transition Tuan Peters 1.2.840.114 [id number] 00:00:00 00:00:00 of Care Ruchi Braswell 350.1.13.10 [place] 4.2.7.2.686 [id number] [facility] 2020-08-25 2020-08-25 Transition Tuan Peters 1.2.840.114 [id number] [facility] 00:00:00 00:00:00 of Care Ruchi Garciay 350.1.13.10 it [place] [id number] [address] 2020-08-21 2020-08-23 [facility] Ayleen 1.2.840.114 [id number] 01:07:00 18:35:00 Encounter Kelly Amaya 350.1.13.10 [facility] 4.2.7.2.686 [id number] [facility] 2020-08-21 2020-08-23 [facility] 1. 2.840.114 [id number] [facility] 01:07:00 18:35:00 Encounter Mukul Gallardo BebaSarbjit Amaya 350.1.13. 10 ity [facility] 4.2.7.2.686 Jeff as [id number] [address] Results Test Description Test Time Test Comments Results Result Comments Source POCT GLUCOSE (AUTOMATED) 2020-12-17 15:43:35 Test Item Value Reference Range Interpretation Comme nts POCT GLU (test code = 8178690396) 129 mg/dL 70-110 H Lab Interpretation (test code = 45658-8) Abnormal [facility] METABOLIC PANEL (NA, K, CL, CO2, GLUCOSE, BUN, CREATININE, CA)2020-12-17 11:45:07 Test Item Value Reference Range Interpretation Comments NA (test code = 137 mmol/L 135-145 3262401504) K (test code = 3.5 mmol/L 3.5-5.0 9158773141) CL (test code = 103 mmol/L 98-108 0338334504) CO2 TOTAL (test code = 26 mmol/L 23-31 8378323654) AGAP (test code = 2-16 0316860023) BUN (test code = 11 mg/dL 7-23 4984563911) GLUCOSE (test code = 175 mg/dL 70-110 H 5671264658) CREATININE (test code = 0.62 mg/dL 0.60-1.25 1967993816) CALCIUM (test code = 9.0 mg/dL 8.6-10.6 2044030468) eGFR Calculation mL/min/1.73m2 (Non-) (test code = 6151864251) eGFR Calculation mL/min/1.73m2 () (test code = 5179620376) JAMES (test code = JAMES) Association of [...] tests). Lab Interpretation Abnormal (test code = 28692-8) General acute hospital WITH [id number] 11:07:27 Test Item Value Reference Range Interpretation [...] RDW-SD (test code = 45.2 fL 38.5-51.6 27460-6) RDW-CV (test code = 16.9 % 12.1-15.4 H 788-0) PLT (test code = See_Comment H [Automated 777-3) message] The sy stem which generated this result transmitted reference range : 150 - 328 10*3/ ?L. The reference r torito was not used to interpret this result as normal/abnormal . MPV (test code = 8.1 fL 9.8-13.0 L 67322-3) NRBC/100 WBC (test See_Comment [Automat ed code = 6819954402) message] The system which generated this result transmitted reference range : 0.0 - 10.0 /100 WBCs. The refer ence range was not u sed to interpret th is result as normal/abnormal . NRBC x10^3 (test code <0.01 See_Comment [Auto mated = 3912762880) message] The s ystem which generated this result transmitted reference range : 10*3/?L. The reference range was not used to interpret this result as normal/abnormal . GRAN MAT (NEUT) % 72.8 % (test code = 770-8) IMM GRAN % (test code 0.60 % = 7550783769) LYMPH % (test code = 18.4 % 736-9) MONO % (test code = 5.7 % 5905-5) EOS % (test code = 1.8 % 713-8) BASO % (test code = 0.7 % 706-2) GRAN MAT x10^3(ANC) 8.23 10*3/uL 1.99-6.95 H (test code = 3387876037) IMM GRAN x10^3 (test 0.07 10*3/uL 0.00-0.06 H code = 6022664577) LYMPH x10^3 (test code 2.08 10*3/uL 1.09-3.23 = 731-0) MONO x10^3 (test code 0.65 10*3/uL 0.36-1.02 = 742-7) EOS x10^3 (test code = 0.20 10*3/uL 0.06-0.53 711-2) BASO x10^3 (test code 0.08 10*3/uL 0.01-0.09 = 704-7) Lab Interpretation Abnormal (test code = 51766-1) [facility]17 06:03:38 Test Item Value Reference Range Interpretation Comments POCT GLU (test code = 7679489437) 75 mg/dL 70-110 Lab Interpretation (test code = Normal 59289-2) [facility], [id number] 00:01:00 Test Item Value Reference Range Interpretation Comments VIT B6 (test code = 13.1 nmol/L 20.0-125.0 L INTERPRE TIVE 83336-5) INFORMATION: Vi tamin B6 (Pyridoxal 5-Phosphate) Pyridoxal 5'-phosphate me asured in a specimen collected follo wing an 8-hour or overnight fast accurately clara cates vitamin B6 nutritional sta tus. Non-fasting spe cimen concentration reflects recent vitamin intake. This test was develo ped and its perform ance characteristics determined by [facility]. I t has not been cleare d or approved by the [place] Food and Drug Administration. This test was perfor med in a CLIA certifie d laboratory and is intended for cl inical purposes.Perfor med By: [employer] [address] [place] [address] [id number] Director: Namrata Klein MD Lab Interpretation Abnormal (test code = 14120-1) [facility] TIBIA FIBULA 2 VW [id number] 23:57:09 Tricompartmental knee joint osteoarthrosis.XR TIBIA FIBULA [...] acute fracture or dislocation.IMPRESSIONTricompartmental knee joint osteoarthrosis.[facility] GLUCOSE (AUTOMATED) 2020-12-16 23:27:00 Test Item Value Reference Range Interpretation Comments POCT GLU (test code = 6238082369) 114 mg/dL 70-110 H Lab Interpretation (test code = Abnormal 02363-7) [facility] GLUCOSE (AUTOMATED)2020-12-16 20:12:00 Test Item Value Reference Range Interpretation Comments POCT GLU (test code = 8680111731) 105 mg/dL 70-110 Lab Interpretation (test code = Normal 02009-1) [facility] GLUCOSE (AUTOMATED)2020-12-16 14:44:00 Test Item Value Reference Range Interpretation Comments POCT GLU (test code = 0083362849) 153 mg/dL 70-110 H Lab Interpretation (test code = Abnormal 96035-6) [facility] (NA, K, CL, CO2, GLUCOSE, BUN, CREATININE, CA)2020-12-16 14:23:00 Test Item Value Reference Range Interpretation Comments NA (test code = 138 mmol/L 135-145 9994019825) K (test code = 3.4 mmol/L 3.5-5.0 L 6608296669) CL (test code = 100 mmol/L 98-108 9570354155) CO2 TOTAL (test code = 31 mmol/L 23-31 1708239969) AGAP (test code = 2-16 7088552724) BUN (test code = 11 mg/dL 7-23 8391547073) GLUCOSE (test code = 162 mg/dL 70-110 H 3318552840) CREATININE (test code = 0.64 mg/dL 0.60-1.25 4395369751) CALCIUM (test code = 8.9 mg/dL 8.6-10.6 3888276534) eGFR Calculation mL/min/1.73m2 (Non-) (test code = 9491751583) eGFR Calculation mL/min/1.73m2 () (test code = 0803790539) JAMES (test code = JAMES) Association of [...] tests). Lab Interpretation Abnormal (test code = 39235-2) General acute hospital WITH [id number] 14:05:00 Test Item Value Reference Range Interpretation [...] RDW-SD (test code = 45.4 fL 38.5-51.6 43101-2) RDW-CV (test code = 17.0 % 12.1-15.4 H 788-0) PLT (test code = See_Comment H [Automated 777-3) message] The sy stem which generated this result transmitted reference range : 150 - 328 10*3/ ?L. The reference r torito was not used to interpret this result as normal/abnormal . MPV (test code = 8.0 fL 9.8-13.0 L 94808-5) NRBC/100 WBC (test See_Comment [Automat ed code = 9223519493) message] The system which generated this result transmitted reference range : 0.0 - 10.0 /100 WBCs. The refer ence range was not u sed to interpret th is result as normal/abnormal . NRBC x10^3 (test code <0.01 See_Comment [Auto mated = 1378536577) message] The s ystem which generated this result transmitted reference range : 10*3/?L. The reference range was not used to interpret this result as normal/abnormal . GRAN MAT (NEUT) % 70.0 % (test code = 770-8) IMM GRAN % (test code 0.70 % = 6837980153) LYMPH % (test code = 20.5 % 736-9) MONO % (test code = 7.1 % 5905-5) EOS % (test code = 1.0 % 713-8) BASO % (test code = 0.7 % 706-2) GRAN MAT x10^3(ANC) 9.44 10*3/uL 1.99-6.95 H (test code = 8942858237) IMM GRAN x10^3 (test 0.09 10*3/uL 0.00-0.06 H code = 4924162830) LYMPH x10^3 (test code 2.76 10*3/uL 1.09-3.23 = 731-0) MONO x10^3 (test code 0.96 10*3/uL 0.36-1.02 = 742-7) EOS x10^3 (test code = 0.13 10*3/uL 0.06-0.53 711-2) BASO x10^3 (test code 0.10 10*3/uL 0.01-0.09 H = 704-7) Lab Interpretation Abnormal (test code = 71858-1) [facility] Center[facility] - Peripheral # [id number] 13:01:00 Test Item Value Reference Range Interpretation Comments Blood Culture-Aerobic No organisms No growth Previo us (test code = 85078-1) isolated prelim inary verified result was Culture In Progress on 12/11/2020 at 100 1 CSTPrevious preliminary verified result was No growth a t 24 hours on 12/12/2020 at 070 1 CSTPrevious preliminary verified result was No growth a t 48 hours on 12/13/2020 at 070 1 CSTPrevious preliminary verified result was No growth a t 72 hours on 12/14/2020 at 070 1 [employer] Blood No organisms No growth Previous Culture-Anaerobic isolated preliminar y (test code = 49409-1) verifi ed result was Culture In Progress on 12/11/2020 at 100 1 CSTPrevious preliminary verified result was No growth a t 24 hours on 12/12/2020 at 070 1 CSTPrevious preliminary verified result was No growth a t 48 hours on 12/13/2020 at 070 1 CSTPrevious preliminary verified result was No growth a t 72 hours on 12/14/2020 at 070 1 [employer] Lab Interpretation Normal (test code = 24896-4) [facility] # [id number] 13:01:00 Test Item Value Reference Range Interpretation Comments Blood Culture-Aerobic No organisms No growth Previo us (test code = 66672-9) isolated prelim inary verified result was Culture In Progress on 12/11/2020 at 100 1 CSTPrevious preliminary verified result was No growth a t 24 hours on 12/12/2020 at 070 1 CSTPrevious preliminary verified result was No growth a t 48 hours on 12/13/2020 at 070 1 CSTPrevious preliminary verified result was No growth a t 72 hours on 12/14/2020 at 070 1 [employer] Blood No organisms No growth Previous Culture-Anaerobic isolated preliminar y (test code = 73506-1) verifi ed result was Culture In Progress on 12/11/2020 at 100 1 CSTPrevious preliminary verified result was No growth a t 24 hours on 12/12/2020 at 070 1 CSTPrevious preliminary verified result was No growth a t 48 hours on 12/13/2020 at 070 1 CSTPrevious preliminary verified result was No growth a t 72 hours on 12/14/2020 at 070 1 [employer] Lab Interpretation Normal (test code = 98903-7) [facility] GLUCOSE (AUTOMATED)2020-12-16 04:01:00 Test Item Value Reference Range Interpretation Comments POCT GLU (test code = 9027921034) 156 mg/dL 70-110 H Lab Interpretation (test code = Abnormal 97596-2) [facility] GLUCOSE (AUTOMATED)2020-12-16 00:24:00 Test Item Value Reference Range Interpretation Comments POCT GLU (test code = 0546426564) 115 mg/dL 70-110 H Lab Interpretation (test code = Abnormal 35491-9) [facility] CHEST PULMONARY [id number] 23:34:55No pulmonary emboli. No interval change in [...] intra and extrahepatic biliary du ctal dilatation.[facility] GLUCOSE (AUTOMATED) 2020-12-15 19:28:00 Test Item Value Reference Range Interpretation Comments POCT GLU (test code = 4862835181) 140 mg/dL 70-110 H Lab Interpretation (test code = Abnormal 18763-6) [facility] 15:26:00 Test Item Value Reference Range Interpretation Comments MAGNESIUM (test code = 7662692847) 2.2 mg/dL 1.7-2.4 Lab Interpretation (test code = Normal 58342-3) [facility]2020-12-15 15:15:00 Test Item Value Reference Range Interpretation Comments POCT GLU (test code = 0860376652) 181 mg/dL 70-110 H Lab Interpretation (test code = Abnormal 40430-5) [facility] (NA, K, CL, CO2, GLUCOSE, BUN, CREATININE, CA)2020-12-15 13:07:00 Test Item Value Reference Range Interpretation Comments NA (test code = 136 mmol/L 135-145 3762653965) K (test code = 3.6 mmol/L 3.5-5.0 8742359928) CL (test code = 96 mmol/L 98-108 L 2970823770) CO2 TOTAL (test code = 29 mmol/L 23-31 4316997554) AGAP (test code = 2-16 1284715798) BUN (test code = 12 mg/dL 7-23 3510466188) GLUCOSE (test code = 183 mg/dL 70-110 H 3048779361) CREATININE (test code = 0.70 mg/dL 0.60-1.25 6040873503) CALCIUM (test code = 9.2 mg/dL 8.6-10.6 6280239672) eGFR Calculation mL/min/1.73m2 (Non-) (test code = 8013157399) eGFR Calculation mL/min/1.73m2 () (test code = 2551368204) JAMES (test code = JAMES) Association of [...] tests). Lab Interpretation Abnormal (test code = 05820-6) General acute hospital WITH [id number] 12:32:00 Test Item Value Reference Range Interpretation Comments WBC (test code = See_Comment H [Automated 7190-2) message] The system which generated this result transmit ronan reference range : 4.20 - 10.70 10*3/?L. The reference range was not used to interpret this result as normal/abnormal . RBC (test code = See_Comment H [Automated 899-8) message] The system which generated this result [...] RDW-SD (test code = 44.4 fL 38.5-51.6 04540-3) RDW-CV (test code = 17.7 % 12.1-15.4 H 788-0) PLT (test code = See_Comment H [Automated 777-3) message] The system which generated this result transmit ronan reference range : 150 - 328 10*3/ ?L. The reference range was not u sed to interpret th is result as normal/abnormal . MPV (test code = 8.1 fL 9.8-13.0 L 53389-2) NRBC/100 WBC (test See_Comment [Automat ed code = 7079812679) message] The system which generated this result transmit ronan reference range : 0.0 - 10.0 /100 WBCs. The reference range was not used to interpret this result as normal/abnormal . NRBC x10^3 (test code <0.01 See_Comment [Auto mated = 0882840604) message] The system which generated this result transmit ronan reference range : 10*3/?L. The reference range was not used to interpret this result as normal/abnormal . GRAN MAT (NEUT) % 74.5 % (test code = 770-8) IMM GRAN % (test code 0.70 % = 1432844162) LYMPH % (test code = 17.4 % 736-9) MONO % (test code = 6.8 % 5905-5) EOS % (test code = 0.2 % 713-8) BASO % (test code = 0.4 % 706-2) GRAN MAT x10^3(ANC) 11.99 10*3/uL 1.99-6.95 H (test code = 2866048170) IMM GRAN x10^3 (test 0.11 10*3/uL 0.00-0.06 H code = 8111994346) LYMPH x10^3 (test code 2.80 10*3/uL 1.09-3.23 = 731-0) MONO x10^3 (test code 1.10 10*3/uL 0.36-1.02 H = 742-7) EOS x10^3 (test code = 0.03 10*3/uL 0.06-0.53 L 711-2) BASO x10^3 (test code 0.06 10*3/uL 0.01-0.09 = 704-7) Lab Interpretation Abnormal (test code = 81921-7) [facility] GLUCOSE (AUTOMATED)2020-12-15 04:16:00 Test Item Value Reference Range Interpretation Comments POCT GLU (test code = 9127893729) 200 mg/dL 70-110 H Lab Interpretation (test code = Abnormal 47164-5) [facility] Center[facility]IT[facility]IN B1 (THIAMINE), WHOLE [id number] 00:30:00 Test Item Value Reference Range Interpretation Comments Vitamin B1, Whole 136 nmol/L 70-180 INTERPRETI VE INFORMATION: Blood (test code = Vitamin B 1, Whole Blood 62444-4) This assay júnior ures the concentration o f thiamine diphosphate (TD P), the primary active form of vitamin B1. Nick roximately 90 percent of v itamin B1 present in whol e blood is TDP. Thiamine a nd thiamine monoph osphate, which comprise the remaining 10 pe rcent, are not measured. T his test was developed a nd its performance characteristics determined by [facility]. I t has not been cleared or approved by the US Food and Drug Administration. This test was performed i n a CLIA certified labor atory and is intended for clinical purposes.Perfor med By: [facility] [place] [address] [id number] aboratory Director: Namrata Klein MD [facility] GLUCOSE (AUTOMATED)2020-12-14 23:35:00 Test Item Value Reference Range Interpretation Comments POCT GLU (test code = 5922068776) 151 mg/dL 70-110 H Lab Interpretation (test code = Abnormal 39935-8) [facility] GLUCOSE (AUTOMATED)2020-12-14 19:19:00 Test Item Value Reference Range Interpretation Comments POCT GLU (test code = 8505018199) 193 mg/dL 70-110 H Lab Interpretation (test code = Abnormal 97566-1) [facility] GLUCOSE (AUTOMATED)2020-12-14 15:22:00 Test Item Value Reference Range Interpretation Comments POCT GLU (test code = 6038841096) 221 mg/dL 70-110 H Lab Interpretation (test code = Abnormal 61647-8) [facility] GLUCOSE (AUTOMATED)2020-12-14 02:37:00 Test Item Value Reference Range Interpretation Comments POCT GLU (test code = 6643808626) 210 mg/dL 70-110 H Lab Interpretation (test code = Abnormal 86645-2) [facility] GLUCOSE (AUTOMATED)2020-12-13 23:33:00 Test Item Value Reference Range Interpretation Comments POCT GLU (test code = 8659479367) 182 mg/dL 70-110 H Lab Interpretation (test code = Abnormal 54829-7) [facility] GLUCOSE (AUTOMATED)2020-12-13 18:09:00 Test Item Value Reference Range Interpretation Comments POCT GLU (test code = 6778307106) 150 mg/dL 70-110 H Lab Interpretation (test code = Abnormal 90909-6) [facility] METABOLIC PANEL (NA, K, CL, CO2, GLUCOSE, BUN, CREATININE, CA)2020-12-13 16:27:00 Test Item Value Reference Range Interpretation Comments NA (test code = 136 mmol/L 135-145 3538357956) K (test code = 3.7 mmol/L 3.5-5.0 8944623797) CL (test code = 96 mmol/L 98-108 L 5617012647) CO2 TOTAL (test code = 29 mmol/L 23-31 2827463004) AGAP (test code = 2-16 2022404795) BUN (test code = 6 mg/dL 7-23 L 5981167053) GLUCOSE (test code = 212 mg/dL 70-110 H 5383507953) CREATININE (test code = 0.61 mg/dL 0.60-1.25 9011068486) CALCIUM (test code = 9.5 mg/dL 8.6-10.6 4379034565) eGFR Calculation mL/min/1.73m2 (Non-) (test code = 3704678264) eGFR Calculation mL/min/1.73m2 () (test code = 7888436495) JAMES (test code = JAMES) Association of [...] tests). Lab Interpretation Abnormal (test code = 94893-5) General acute hospital WITH [id number] 16:10:00 Test Item Value Reference Range Interpretation Comments WBC (test code = See_Comment H [Automated 0890-2) message] The sy stem which generated this result transmitted reference range : 4.20 - 10.70 10*3/?L. The reference range was not used to interpret this result as normal/abnormal . RBC (test code = See_Comment H [Automated 159-8) message] The sy stem which generated this [...] RDW-SD (test code = 43.3 fL 38.5-51.6 36969-8) RDW-CV (test code = 16.2 % 12.1-15.4 H 788-0) PLT (test code = See_Comment H [Automated 777-3) message] The sy stem which generated this result transmitted reference range : 150 - 328 10*3/ ?L. The reference r torito was not used to interpret this result as normal/abnormal . MPV (test code = 8.2 fL 9.8-13.0 L 58638-4) NRBC/100 WBC (test See_Comment [Automat ed code = 2601382106) message] The system which generated this result transmitted reference range : 0.0 - 10.0 /100 WBCs. The refer ence range was not u sed to interpret th is result as normal/abnormal . NRBC x10^3 (test code <0.01 See_Comment [Auto mated = 4183114262) message] The s ystem which generated this result transmitted reference range : 10*3/?L. The reference range was not used to interpret this result as normal/abnormal . GRAN MAT (NEUT) % 86.2 % (test code = 770-8) IMM GRAN % (test code 0.70 % = 2399591300) LYMPH % (test code = 10.2 % 736-9) MONO % (test code = 2.5 % 5905-5) EOS % (test code = 0.1 % 713-8) BASO % (test code = 0.3 % 706-2) GRAN MAT x10^3(ANC) 9.61 10*3/uL 1.99-6.95 H (test code = 0880382748) IMM GRAN x10^3 (test 0.08 10*3/uL 0.00-0.06 H code = 0413474588) LYMPH x10^3 (test code 1.14 10*3/uL 1.09-3.23 = 731-0) MONO x10^3 (test code 0.28 10*3/uL 0.36-1.02 L = 742-7) EOS x10^3 (test code = <0.03 0.06-0.53 L 711-2) BASO x10^3 (test code 0.03 10*3/uL 0.01-0.09 = 704-7) Lab Interpretation Abnormal (test code = 93775-1) [facility]2020-[facility]-13 14:16:00 Test Item Value Reference Range Interpretation Comments POCT GLU (test code = 0194699305) 236 mg/dL 70-110 H Lab Interpretation (test code = Abnormal 32317-6) [facility] CenterLAB ONLY COVID [id number] 04:58:00COVID DMT InterpretationInterpretation/Recommendations: Molecular NAAT Tests for [...] COVID-19 testing the patient has had at [facility], including molecular NAAT testing (more commonly known as PCR testing and Rapid ID Now testing) and antibody testing. It does not take into account any testing that a patient has had outside of the [facility] medical record. [facility] LABORATORY SERVICESCOVID Resu ksiEIMN-VvA-5 Rapid ID NOW (no units) ? ? Date ? Value ? 12/11/2020 ? Not Detected ? ? ? 11/16/2020 ? Not Detected ? ? ? 08/21/2020 ?Not Detected ? [facility]Un[facility] 2020-12-13 03:11:00 Test Item Value Reference Range Interpretation Comments POCT GLU (test code = 9022607944) 171 mg/dL 70-110 H Lab Interpretation (test code = Abnormal 35470-5) [facility] GLUCOSE (AUTOMATED)2020-12-13 00:00:00 Test Item Value Reference Range Interpretation Comments POCT GLU (test code = 7646359366) 118 mg/dL 70-110 H Lab Interpretation (test code = Abnormal 97811-8) [facility] GLUCOSE (AUTOMATED)2020-12-12 20:29:00 Test Item Value Reference Range Interpretation Comments POCT GLU (test code = 3005362625) 173 mg/dL 70-110 H Lab Interpretation (test code = Abnormal 70878-0) [facility] CenterUS ABDOMEN [id number] 19:56:17 1. ?Hepatic steatosis. However, limited evaluation [...] main portal veinwasevaluated with color Doppler imaging. Sewer Tapper images were obtainedfor the record. COMPARISON: Ultrasound [...] normal where visualized. SPLEEN:No images were obtained. [facility], Radiant Results Inft User - 12/12/2020 1:57 PM CSTEXAM: US ABDOMEN LIMITEDHISTORY: 70 years-old male with RUQ ultrasound to assess for common bileduct dilation .TECHNIQUE: Limited abdominal ultrasound focused on the liver, biliarysystem, pancreas, and spleen was performed. The main portal vein wasevaluated with color Doppler imaging. Sewer Tapper images were obtainedfor the record.COMPARISON: Ultrasound abdomen [...] this study and agree with the abovereport. [facility]2020-12-12 19:24:00 Test Item Value Reference Range Interpretation Comments POCT GLU (test code = 5490488185) 230 mg/dL 70-110 H Lab Interpretation (test code = Abnormal 42596-1) [facility] CenterXR CHEST 1 [id number] 15:16:46 Low lung volumes with mild perihilar [...] have reviewed thisstudy and agree with theabove report.[facility]2020-12-12 14:34:00 Test Item Value Reference Range Interpretation Comments POCT GLU (test code = 9582857426) 225 mg/dL 70-110 H Lab Interpretation (test code = Abnormal 86569-8) [facility] CenterURINE [id number] 13:28:00 Test Item Value Reference Range Interpretation Comments URINE CULTURE (test < 10,000 CFU/mL mixed code = 630-4) aerobic organisms - suggests endogenous microbial contamination [facility] Center[facility] (NA, K, CL, CO2, GLUCOSE, BUN, CREATININE, CA)2020-12-12 10:05:00 Test Item Value Reference Range Interpretation Comments NA (test code = 136 mmol/L 135-145 7510189358) K (test code = 3.5 mmol/L 3.5-5.0 2697875157) CL (test code = 100 mmol/L 98-108 1132865811) CO2 TOTAL (test code = 31 mmol/L 23-31 0853649838) AGAP (test code = 2-16 9304877981) BUN (test code = 7 mg/dL 7-23 5910681439) GLUCOSE (test code = 259 mg/dL 70-110 H 5223065863) CREATININE (test code = 0.63 mg/dL 0.60-1.25 1157638307) CALCIUM (test code = 8.5 mg/dL 8.6-10.6 L 4640699089) eGFR Calculation mL/min/1.73m2 (Non-) (test code = 9326847948) eGFR Calculation mL/min/1.73m2 () (test code = 3292298752) JAMES (test code = JAMES) Association of [...] tests). Lab Interpretation Abnormal (test code = 18168-4) [facility] CenterMagnesium [id number] 10:05:00 Test Item Value Reference Range Interpretation Comments MAGNESIUM (test code = 6454601969) 1.9 mg/dL 1.7-2.4 Lab Interpretation (test code = Normal 53403-1) General acute hospital with [id number] 09:48:00 Test Item Value Reference Range Interpretation Comments WBC (test code = See_Comment [Automated 3771-2) message] The sy stem which generated this result transmitted reference range : 4.20 - 10.70 10*3/?L. The reference range was not used to interpret this result as normal/abnormal . RBC (test code = See_Comment [Automated 682-8) message] The sy stem which generated this [...] RDW-SD (test code = 46.0 fL 38.5-51.6 23240-5) RDW-CV (test code = 16.1 % 12.1-15.4 H 788-0) PLT (test code = See_Comment H [Automated 777-3) message] The sy stem which generated this result transmitted reference range : 150 - 328 10*3/ ?L. The reference r torito was not used to interpret this result as normal/abnormal . MPV (test code = 8.6 fL 9.8-13.0 L 57738-1) NRBC/100 WBC (test See_Comment [Automat ed code = 7025345085) message] The system which generated this result transmitted reference range : 0.0 - 10.0 /100 WBCs. The refer ence range was not u sed to interpret th is result as normal/abnormal . NRBC x10^3 (test code <0.01 See_Comment [Auto mated = 3633289774) message] The s ystem which generated this result transmitted reference range : 10*3/?L. The reference range was not used to interpret this result as normal/abnormal . GRAN MAT (NEUT) % 70.2 % (test code = 770-8) IMM GRAN % (test code 0.30 % = 1915391537) LYMPH % (test code = 18.8 % 736-9) MONO % (test code = 5.0 % 5905-5) EOS % (test code = 5.2 % 713-8) BASO % (test code = 0.5 % 706-2) GRAN MAT x10^3(ANC) 6.05 10*3/uL 1.99-6.95 (test code = 7615707678) IMM GRAN x10^3 (test 0.03 10*3/uL 0.00-0.06 code = 1890232729) LYMPH x10^3 (test code 1.62 10*3/uL 1.09-3.23 = 731-0) MONO x10^3 (test code 0.43 10*3/uL 0.36-1.02 = 742-7) EOS x10^3 (test code = 0.45 10*3/uL 0.06-0.53 711-2) BASO x10^3 (test code 0.04 10*3/uL 0.01-0.09 = 704-7) Lab Interpretation Abnormal (test code = 89188-2) [facility] GLUCOSE (AUTOMATED)2020-12-12 03:42:00 Test Item Value Reference Range Interpretation Comments POCT GLU (test code = 196 mg/dL 70-110 H Notifi ed Provider 0345255151) Lab Interpretation (test Abnormal code = 49663-5) [facility] CenterFOLATE2021-03-02 02:24:00 Test Item Value Reference Range Interpretation Comments FOLATE SER (test code = 2263868992) 5.8 ng/mL 3.0-20.0 Lab Interpretation (test code = Normal 40820-2) [facility] CenterVITAMIN B12, [id number] 00:55:00 Test Item Value Reference Range Interpretation Comments VIT B12 (test code = 844 pg/mL 240-930 3706499656) JAMES (test code = JAMES) Biotin has been reported to cause a positive bias, interpret results relative to patient's use of biotin. Lab Interpretation (test Normal code = 75180-7) [facility] GLUCOSE (AUTOMATED)2020-12-12 00:14:00 Test Item Value Reference Range Interpretation Comments POCT GLU (test code = 6135096648) 164 mg/dL 70-110 H Lab Interpretation (test code = Abnormal 43999-2) [facility] CenterCREATINE [id number] 23:42:00 Test Item Value Reference Range Interpretation Comments CK (test code = 4302892635) <20 33-194 L Lab Interpretation (test code = Abnormal 19040-6) [facility] CenterTHYROID STIMULATING [id number] 23:17:00 Test Item Value Reference Range Interpretation Comments TSH (test code = See_Comment Biotin has been 0794323650) reported to cau se a negative bias, interpret resul ts relative to pat ient's use of biotin. [Automated mess age] The system [employer] generated this result transmitted ref erence range: 0.45 - 4 .70 mIU/L. The refe rence range was not u sed to interpret this result as normal/abnor mal. Lab Interpretation (test Normal code = 75212-4) [facility] CenterXR HIPS 3 VW [id number] 21:41:53No appreciable fracture lines. RL: 6200 ICAL HISTORY:Pain. COMPARISON:none TECHNIQUE:XR HIPS 3 VW LEFT performed. Technical Quality: Adequate FINDINGS:There are no appreciable fracture lines or subluxations. ?There is grossanatomic alignment. ?No appreciable joint effusion. Moderate to severe hip joint space narrowing, with arthropathy. Marginalosteophytes and subchondral sclerosis. No osseous erosions. [facility], Radiant Results Inft User -12/11/2020 3:43 PM CSTCLINICAL HISTORY:Pain.COMPARISON:noneTECHNIQUE:XR HIPS 3 VW LEFT performed. Technical Quality: AdequateFINDINGS:There are no appreciable fracture lines or subluxations. There isgrossanatomic alignment. No appreciable joint effusion.Moderate to severe hip joint space narrowing, with arthropathy. Marginalosteophytes and subchondral sclerosis. No osseous erosions.IMPRESSIONNo appreciable fracture lines.RL: 6200 [facility]PROCALCITONIN2021-03-01 20:00:00 Test Item Value Reference Range Interpretation Comments Procalcitonin (test 0.13 ng/mL <0.07 H code = 5271913630) JAMES (test code = JAMES) INTERPRETATION OF [...] lung abscess/empyema. For further information please refer to:[email or web address] biotics/default.asp Lab Interpretation Abnormal (test code = 79317-3) [facility]2020-12-11 19:07:00 Test Item Value Reference Range Interpretation Comments POCT GLU (test code = 7442795312) 274 mg/dL 70-110 H Lab Interpretation (test code = Abnormal 49190-9) [facility]MAGNESIUM2021-03-01 18:31:00 Test Item Value Reference Range Interpretation Comments MAGNESIUM (test code = 0113946148) 1.9 mg/dL 1.7-2.4 Lab Interpretation (test code = Normal 31972-1) [facility] CenterFERRITIN [id number] 18:31:00 Test Item Value Reference Range Interpretation Comments FERRITIN (test code = 178.0 ng/mL 18.0-464.0 0421020258) JAMES (test code = JAMES) Biotin has been reported to cause a negative bias, interpret results relative to patient's use of biotin. Lab Interpretation (test Normal code = 27702-4) [facility] CenterCT HEAD WO [id number] 14:36:47 No acute intracranial abnormality. Dilated ventricles [...] reviewed this study and agree with the abovereport.[facility] CenterURINALYSIS2021-03-01 14:28:00 Test Item Value Reference Range Interpretation Comments APPEARANCE (test code = Clear Clear 1997343634) COLOR (test code = Yellow Yellow 6778015368) PH (test code = 4.8-8.0 7710705596) SP GRAVITY (test code = 1.003-1.030 8630685820) GLU U QUAL (test code = 500 mg/dL Normal A 6137553216) BLOOD (test code = Negative Negative 2291353199) KETONES (test code = 5 mg/dL Negative A 5999119045) PROTEIN (test code = Negative Negative 2887-8) UROBILIN (test code = Normal Normal 9081860944) BILIRUBIN (test code = Negative Negative 8889947502) NITRITE (test code = Negative Negative 0348471663) LEUK RYAN (test code = Negative Negative 3445077725) RBC/HPF (test code = See_Comment [Autom ated message] 3990386072) The system [employer] generated this result transmit ronan reference range : 0 - 3 HPF. The refe rence range was not u sed to interpret th is result as normal/abnormal . WBC/HPF (test code = See_Comment [Autom ated message] 8212516621) The system [employer] generated this result transmit ronan reference range : 0 - 5 HPF. The refe rence range was not u sed to interpret th is result as normal/abnormal . BACTERIA (test code = Negative Negative 2263729504) MUCOUS (test code = Slight Negative LPF A 8929743598) SQ EPITH (test code = HPF 0947622698) Lab Interpretation (test Abnormal code = 97292-7) [facility] CenterCOVID[facility] (ID NOW RAPID TESTING)2020-12-11 13:10:00 Test Item Value Reference Range Interpretation Comments SARS-CoV-2 Rapid ID NOW Not Detected Not Detected (test code = 21843-9) JAMES (test code = JAMES) ID NOW COVID-19 Assay is an isothermal nucleic acid amplification test intended for the qualitative detection of nucleic acid from SARS-CoV-2 viral RNA in nasopharyngeal (RELIGIOUS EDUCATOR) specimens. It is used under Emergency Use [...] indicated. Lab Interpretation Normal (test code = 63816-5) [facility] CenterCOM. METABOLIC PANEL (08420)2020-12-11 12:29:00 Test Item Value Reference Range Interpretation Comments NA (test code = 136 mmol/L 135-145 0362019926) K (test code = 3.5 mmol/L 3.5-5.0 9806016831) CL (test code = 95 mmol/L 98-108 L 2166252430) CO2 TOTAL (test code = 35 mmol/L 23-31 H 5961378474) AGAP (test code = 2-16 5822354785) BUN (test code = 9 mg/dL 7-23 7337193065) GLUCOSE (test code = 329 mg/dL 70-110 H 2128261036) CREATININE (test code = 0.72 mg/dL 0.60-1.25 9024286457) TOTAL BILI (test code = 0.6 mg/dL 0.1-1.3 8271625775) CALCIUM (test code = 9.0 mg/dL 8.6-10.6 8110415487) T PROTEIN (test code = 6.8 g/dL 6.3-8.2 4814691539) ALBUMIN (test code = 3.8 g/dL 3.5-5.0 8167739921) ALK PHOS (test code = 288 U/L 34-122 H 4908474217) ALTv (test code = 46 U/L 5-50 2-6) AST(SGOT) (test code = 38 U/L 13-40 2158127959) eGFR Calculation mL/min/1.73m2 (Non-) (test code = 1635586546) eGFR Calculation mL/min/1.73m2 () (test code = 8487584646) JAMES (test code = JAMES) Association of [...] tests). Lab Interpretation Abnormal (test code = 31948-0) [facility] CenterLactic Acid Whole [id number] 12:23:00 Test Item Value Reference Range Interpretation Comments LACTIC ACID (test code = 2.09 mmol/L 0.50-2.20 1281327375) Lab Interpretation (test code = Normal 18641-5) [facility] CenterCB WITH [id number] 12:17:00 Test Item Value Reference Range Interpretation [...] RDW-SD (test code = 44.9 fL 38.5-51.6 47831-6) RDW-CV (test code = 15.9 % 12.1-15.4 H 788-0) PLT (test code = See_Comment H [Automated 777-3) message] The sy stem which generated this result transmitted reference range : 150 - 328 10*3/ ?L. The reference r torito was not used to interpret this result as normal/abnormal . MPV (test code = 8.3 fL 9.8-13.0 L 69694-4) NRBC/100 WBC (test See_Comment [Automat ed code = 8795435412) message] The system which generated this result transmitted reference range : 0.0 - 10.0 /100 WBCs. The refer ence range was not u sed to interpret th is result as normal/abnormal . NRBC x10^3 (test code <0.01 See_Comment [Auto mated = 4363879975) message] The s ystem which generated this result transmitted reference range : 10*3/?L. The reference range was not used to interpret this result as normal/abnormal . GRAN MAT (NEUT) % 77.9 % (test code = 770-8) IMM GRAN % (test code 0.50 % = 3877631805) LYMPH % (test code = 12.2 % 736-9) MONO % (test code = 5.2 % 5905-5) EOS % (test code = 3.7 % 713-8) BASO % (test code = 0.5 % 706-2) GRAN MAT x10^3(ANC) 9.57 10*3/uL 1.99-6.95 H (test code = 1981609349) IMM GRAN x10^3 (test 0.06 10*3/uL 0.00-0.06 code = 0575606201) LYMPH x10^3 (test code 1.50 10*3/uL 1.09-3.23 = 731-0) MONO x10^3 (test code 0.64 10*3/uL 0.36-1.02 = 742-7) EOS x10^3 (test code = 0.46 10*3/uL 0.06-0.53 711-2) BASO x10^3 (test code 0.06 10*3/uL 0.01-0.09 = 704-7) Lab Interpretation Abnormal (test code = 13497-8) [facility] CenterLAB ONLY COVID [id number] 18:43:00COVID DMT InterpretationInterpretation/Recommendations: Molecular NAAT Test Results [...] a nasopharyngeal sample, there is approximately a you-gn-igano chance that the patient was infected and [...] based upon aggregate data pooled from the [facility] medical record including both current and prior COVID-19 related testing results for the following tests offered at our institution:A. Tests for the Identification of SARS-CoV-2 RNA:SARS-CoV-2 PCR assays including [place] Aptima, [place] Fusion, Barrett RealTime, and Going[employer] Xpert Xpress. SARS-CoV-2 Rapid ID NOW by the ID NOW assay. ? B. Tests for the Identification of SARS-CoV-2 Antibodies: Chemiluminescent immunoassays including Access SARS-CoV-2 IgM (DXI 600), [facility] CenterS Ogen-SLWO-OvK-2 IgG (Vitros 5600 and Vitros 3600), and Barrett SARS-CoV-2 IgG (VARNISHING UNIT OPERATOR I System). These interpretation comments assume that only the above testing was utilized and that the approved acceptable specimen type(s) were used for a given test. These interpretations are autopopulated into [employer] based on computerized algorithms matching an interpretation code number to the patient's set of test results. While a clinical pathologist evaluates the combinations for clinical accuracy, clinical correlation is recommended as it may not take into account very remote prior testing. Furthermore, it does not consider testing a patient may have had outside of the [facility] system. Additionally, it should be noted that the computerized algorithm treats the results for PCR testing and Rapid ID NOW testing (also PCR) synonymously, and thus, refers to both testing methodologies as PCR tests. Given that the sensitivity of [facility]'s Rapid ID NOW testingplatform is analogous to [...] panel may be beneficial in this setting. [facility] LABORATORY SERVICESCOVID OhymhisSOLZ-VoA-4 Rapid ID NOW (no units) ? ? Date ? Value ? 08/21/2020 ? Not Detected ? [facility] SERVICESUnH[facility]2020-08-23 18:25:00 Test Item Value Reference Range Interpretation Comments POCT GLU (test code = 0629778694) 297 mg/dL 70-110 H Lab Interpretation (test code = Abnormal 52692-0) [facility] GLUCOSE (AUTOMATED)2020-08-23 14:25:00 Test Item Value Reference Range Interpretation Comments POCT GLU (test code = 8595540594) 181 mg/dL 70-110 H Lab Interpretation (test code = Abnormal 95359-1) [facility] CenterBasic Metabolic Panel (NA, K, CL, CO2, GLUCOSE, BUN, CREATININE, CA)2020-08-23 11:45:00 Test Item Value Reference Range Interpretation Comments NA (test code = 132 mmol/L 135-145 L 9562308700) K (test code = 4.0 mmol/L 3.5-5 4095202790) CL (test code = 96 mmol/L 98-108 L 3546817088) CO2 TOTAL (test code = 33 mmol/L 23-31 H 5163848953) AGAP (test code = 2-16 7614921446) BUN (test code = 9 mg/dL 7-23 8976705859) GLUCOSE (test code = 176 mg/dL 70-110 H 0365491425) CREATININE (test code = 0.66 mg/dL 0.6-1.25 9877265542) CALCIUM (test code = 8.5 mg/dL 8.6-10.6 L 8352260975) eGFR Calculation mL/min/1.73m2 (Non-) (test code = 1596552482) eGFR Calculation mL/min/1.73m2 () (test code = 2907511760) JAMES (test code = JAMES) Association of [...] tests). Lab Interpretation Abnormal (test code = 25449-4) [facility] CenterMagnesium [id number] 11:45:00 Test Item Value Reference Range Interpretation Comments MAGNESIUM (test code = 6527715183) 2.0 mg/dL 1.7-2.4 Lab Interpretation (test code = Normal 37705-1) [facility] CenterCB with [id number] 11:38:00 Test Item Value Reference Range Interpretation [...] RDW-SD (test code = 41.8 fL 38.5-51.6 96606-5) RDW-CV (test code = 14.3 % 12.1-15.4 788-0) PLT (test code = See_Comment H [Automated 777-3) message] The sy stem which generated this result transmitted reference range : 150 - 328 10*3/ ?L. The reference r torito was not used to interpret this result as normal/abnormal . MPV (test code = 8.0 fL 9.8-13 L 68622-4) NRBC/100 WBC (test See_Comment [Automat ed code = 4219677894) message] The system which generated this result transmitted reference range : 0.0 - 10.0 /100 WBCs. The refer ence range was not u sed to interpret th is result as normal/abnormal . NRBC x10^3 (test code <0.01 See_Comment [Auto mated = 6904123851) message] The s ystem which generated this result transmitted reference range : 10*3/?L. The reference range was not used to interpret this result as normal/abnormal . GRAN MAT (NEUT) % 61.5 % (test code = 770-8) IMM GRAN % (test code 2.00 % = 1976925661) LYMPH % (test code = 25.5 % 736-9) MONO % (test code = 6.3 % 5905-5) EOS % (test code = 3.7 % 713-8) BASO % (test code = 1.0 % 706-2) GRAN MAT x10^3(ANC) 5.29 10*3/uL 1.99-6.95 (test code = 6679054438) IMM GRAN x10^3 (test 0.17 10*3/uL 0-0.06 H code = 8439419430) LYMPH x10^3 (test code 2.19 10*3/uL 1.09-3.23 = 731-0) MONO x10^3 (test code 0.54 10*3/uL 0.36-1.02 = 742-7) EOS x10^3 (test code = 0.32 10*3/uL 0.06-0.53 711-2) BASO x10^3 (test code 0.09 10*3/uL 0.01-0.09 = 704-7) Lab Interpretation Abnormal (test code = 73765-8) [facility] GLUCOSE (AUTOMATED)2020-08-23 10:22:00 Test Item Value Reference Range Interpretation Comments POCT GLU (test code = 1070806475) 164 mg/dL 70-110 H Lab Interpretation (test code = Abnormal 25281-0) [facility] GLUCOSE (AUTOMATED)2020-08-23 05:56:00 Test Item Value Reference Range Interpretation Comments POCT GLU (test code = 7187527201) 242 mg/dL 70-110 H Lab Interpretation (test code = Abnormal 40293-7) [facility] GLUCOSE (AUTOMATED)2020-08-23 03:02:00 Test Item Value Reference Range Interpretation Comments POCT GLU (test code = 2614533953) 210 mg/dL 70-110 H Lab Interpretation (test code = Abnormal 17973-8) [facility] GLUCOSE (AUTOMATED)2020-08-22 23:40:00 Test Item Value Reference Range Interpretation Comments POCT GLU (test code = 7594026382) 267 mg/dL 70-110 H Lab Interpretation (test code = Abnormal 82216-4) [facility] GLUCOSE (AUTOMATED)2020-08-22 19:08:00 Test Item Value Reference Range Interpretation Comments POCT GLU (test code = 0583733171) 191 mg/dL 70-110 H Lab Interpretation (test code = Abnormal 76264-3) [facility] GLUCOSE (AUTOMATED)2020-08-22 13:50:00 Test Item Value Reference Range Interpretation Comments POCT GLU (test code = 5557409953) 174 mg/dL 70-110 H Lab Interpretation (test code = Abnormal 49370-5) [facility] CenterURINE [id number] 12:59:00 Test Item Value Reference Range Interpretation Comments URINE CULTURE (test No aerobic growth (< code = 630-4) 1000 CFU/mL) General acute hospital with [id number] 11:28:00 Test Item Value Reference Range Interpretation Comments WBC (test code = See_Comment [Automated 3090-2) message] The sy stem which generated this result transmitted reference range : 4.20 - 10.70 10*3/?L. The reference range was not used to interpret this result as normal/abnormal . RBC (test code = See_Comment L [Automated 309-8) message] The sy stem which generated this [...] RDW-SD (test code = 42.5 fL 38.5-51.6 26735-2) RDW-CV (test code = 14.5 % 12.1-15.4 788-0) PLT (test code = See_Comment H [Automated 777-3) message] The sy stem which generated this result transmitted reference range : 150 - 328 10*3/ ?L. The reference r torito was not used to interpret this result as normal/abnormal . MPV (test code = 8.0 fL 9.8-13 L 56834-5) NRBC/100 WBC (test See_Comment [Automat ed code = 8295855499) message] The system which generated this result transmitted reference range : 0.0 - 10.0 /100 WBCs. The refer ence range was not u sed to interpret th is result as normal/abnormal . NRBC x10^3 (test code <0.01 See_Comment [Auto mated = 0958511590) message] The s ystem which generated this result transmitted reference range : 10*3/?L. The reference range was not used to interpret this result as normal/abnormal . GRAN MAT (NEUT) % 69.1 % (test code = 770-8) IMM GRAN % (test code 2.20 % = 8413926617) LYMPH % (test code = 20.9 % 736-9) MONO % (test code = 5.8 % 5905-5) EOS % (test code = 1.0 % 713-8) BASO % (test code = 1.0 % 706-2) GRAN MAT x10^3(ANC) 6.51 10*3/uL 1.99-6.95 (test code = 0387234435) IMM GRAN x10^3 (test 0.21 10*3/uL 0-0.06 H code = 2551795969) LYMPH x10^3 (test code 1.97 10*3/uL 1.09-3.23 = 731-0) MONO x10^3 (test code 0.55 10*3/uL 0.36-1.02 = 742-7) EOS x10^3 (test code = 0.09 10*3/uL 0.06-0.53 711-2) BASO x10^3 (test code 0.09 10*3/uL 0.01-0.09 = 704-7) BASO STIPPLING (test Present A code = 703-9) BANDS (test code = Increased A 5929843658) TOXIC CHANGES (test Present A code = 803-7) Lab Interpretation Abnormal (test code = 07240-2) [facility] Metabolic Panel (NA, K, CL, CO2, GLUCOSE, BUN, CREATININE, CA)2020-08-22 11:12:00 Test Item Value Reference Range Interpretation Comments NA (test code = 135 mmol/L 135-145 5302098785) K (test code = 3.6 mmol/L 3.5-5 0240533406) CL (test code = 99 mmol/L 98-108 0629633433) CO2 TOTAL (test code = 31 mmol/L 23-31 9763773661) AGAP (test code = 2-16 2003266815) BUN (test code = 9 mg/dL 7-23 4570725415) GLUCOSE (test code = 198 mg/dL 70-110 H 0217037258) CREATININE (test code = 0.72 mg/dL 0.6-1.25 0383397452) CALCIUM (test code = 8.3 mg/dL 8.6-10.6 L 2613704946) eGFR Calculation mL/min/1.73m2 (Non-) (test code = 1656951602) eGFR Calculation mL/min/1.73m2 () (test code = 0077684193) JAMES (test code = JAMES) Association of [...] tests). Lab Interpretation Abnormal (test code = 77897-6) [facility] CenterMagnesium Fmdyz8464-04-27 11:12:00 Test Item Value Reference Range Interpretation Comments MAGNESIUM (test code = 7148831554) 2.0 mg/dL 1.7-2.4 Lab Interpretation (test code = Normal 34685-7) [facility] CenterLipid Panel (Total Cholesterol, Triglycerides, HDL) - [id number] 11:12:00 Test Item Value Reference Range Interpretation Comments CHOL (test code = 155 mg/dL 120-200 0162673426) HDL (test code = 42 mg/dL >40 1551143672) HDLC RATIO (test code = See_Comment [Au tomated message] 9863724380) The system [employer] generated this result transmit ronan reference range : <=5.0. The refe rence range was not u sed to interpret th is result as normal/abnormal . TRIG (test code = 186 mg/dL 30-170 H 1876586804) LDL CHOL (test code = 76 mg/dL See_Comment [Auto mated message] 48467-1) The system [employer] generated this result transmit ronan reference range : <=160. The refe rence range was not u sed to interpret th is result as normal/abnormal . VLDL (test code = 37 mg/dL 5-60 5740718389) Lab Interpretation (test Abnormal code = 84031-9) [facility] CenterHEPATIC FUNCTION PANEL (36052) (ALB,T.PRO,BILI T,BU/BC,ALT,AST,ALK PHOS)2020-08-22 11:12:00 Test Item Value Reference Range Interpretation Comments TOTAL BILI (test code = 4976467671) 0.6 mg/dL 0.1-1.1 BILI UNCON (test code = 2245844774) 0.2 mg/dL 0.1-1.1 BILI CONJ (test code = 1828664081) 0.0 mg/dL 0-0.3 T PROTEIN (test code = 3010809767) 6.0 g/dL 6.3-8.2 L ALBUMIN (test code = 0556917175) 2.8 g/dL 3.5-5 L ALK PHOS (test code = 7795437832) 222 U/L 34-122 H ALTv (test code = 1742-6) 27 U/L 5-50 AST(SGOT) (test code = 2442765983) 30 U/L 13-40 Lab Interpretation (test code = Abnormal 11345-0) [facility] GLUCOSE (AUTOMATED)2020-08-22 10:11:00 Test Item Value Reference Range Interpretation Comments POCT GLU (test code = 4037719582) 196 mg/dL 70-110 H Lab Interpretation (test code = Abnormal 68441-7) [facility] GLUCOSE (AUTOMATED)2020-08-22 07:15:00 Test Item Value Reference Range Interpretation Comments POCT GLU (test code = 2793807727) 183 mg/dL 70-110 H Lab Interpretation (test code = Abnormal 30896-3) [facility] GLUCOSE (AUTOMATED)2020-08-22 02:30:00 Test Item Value Reference Range Interpretation Comments POCT GLU (test code = 6512174815) 295 mg/dL 70-110 H Lab Interpretation (test code = Abnormal 75990-6) [facility] GLUCOSE (AUTOMATED)2020-08-21 23:46:00 Test Item Value Reference Range Interpretation Comments POCT GLU (test code = 6562811328) 258 mg/dL 70-110 H Lab Interpretation (test code = Abnormal 41675-7) [facility] CenterC-REACTIVE [id number] 18:50:00 Test Item Value Reference Range Interpretation Comments CRP (test code = 8535173677) 15.5 mg/dL <0.8 H Lab Interpretation (test code = Abnormal 15691-1) [facility]PO[facility]2020-08-21 18:21:00 Test Item Value Reference Range Interpretation Comments POCT GLU (test code = 9142950630) 297 mg/dL 70-110 H Lab Interpretation (test code = Abnormal 04701-1) [facility] CenterETHANOL2020-11-09 16:24:00 Test Item Value Reference Range Interpretation Comments ALCOHOL (test code = <10 mg/dL 4100952195) JAMES (test code = Toxic Greater than or JAMES) equal to 80 mg/dL. NOTE: Whole blood values are approximately 10% to 15% lower than serum and plasma. [facility] CenterGALV/CLC ONLY - URINE DRUG (IMMUNOASSAY) - 4 ER [id number] 15:36:00 Test Item Value Reference Range Interpretation Comments AMPHET (test code = Negative Negative 4010870861) Cocaine Metabolite (test Negative Negative code = 1963423248) OPIATES (test code = Presumptive Positive Negative A 1562350496) THC (test code = Negative Negative 9979865468) JAMES (test code = JAMES) Urine Drug Cutoff Ranges Amphetamine: ? 1,000 ng/mLCocaine: ? 150 ng/mLOpiates: ? 300 ng/mLCannabinoids: ?50 ng/mL The results are to be used only for medical (i.e., treatment) purposes. Unconfirmed screening results must not be used for non-medical purposes (e.g., employment testing, legal testing). Lab Interpretation (test Abnormal code = 20167-9) [facility] ONLY - SYPHILIS [id number] 15:04:00 Test Item Value Reference Range Interpretation Comments Syphilis IgG/IgM (test Non-reactive Non-reactive code = 19737-1) JAMES (test code = JAMES) Non-reactive - No serologic evidence of T. pallidum infection. Cannot exclude incubating or early syphilis. Submit a second specimen in 2-4 weeks if syphilis is clinically suspected. Equivocal - Further testing to follow. Reactive - Further testing to follow. Lab Interpretation (test Normal code = 02095-0) [facility] CenterUrinalysis2020-11-09 14:52:00 Test Item Value Reference Range Interpretation Comments APPEARANCE (test code = Clear Clear 3062177699) COLOR (test code = Yellow Yellow 9152016177) PH (test code = 4.8-8.0 5127756619) SP GRAVITY (test code = 1.003-1.030 1963476611) GLU U QUAL (test code = 500 mg/dL Normal A 7130250504) BLOOD (test code = Negative Negative 6863927937) KETONES (test code = 20 mg/dL Negative A 3766847359) PROTEIN (test code = Negative Negative 2887-8) UROBILIN (test code = Normal Normal 5037973159) BILIRUBIN (test code = Negative Negative 5554095077) NITRITE (test code = Negative Negative 8398847987) LEUK RYAN (test code = Negative Negative 9021450157) RBC/HPF (test code = <1 See_Comment [Autom ated message] 9237317283) The system [employer] generated this result transmit ronan reference range : 0 - 3 HPF. The refe rence range was not u sed to interpret th is result as normal/abnormal . WBC/HPF (test code = See_Comment [Autom ated message] 6299765762) The system [employer] generated this result transmit ronan reference range : 0 - 5 HPF. The refe rence range was not u sed to interpret th is result as normal/abnormal . BACTERIA (test code = Negative Negative 7914162207) MUCOUS (test code = Slight Negative LPF A 9421079482) Lab Interpretation (test Abnormal code = 95455-6) [facility] CenterACTIVATED PARTIAL THRMPLAS [id number] 13:45:00 Test Item Value Reference Range Interpretation Comments APTT Patient (test code = See_Comment [ Automated message] 3173-2) The system [employer] generated this result transmitted ref erence range: 26 - 36 Seconds. The re ference range was not u sed to interpret this result as normal/abnor mal. Lab Interpretation (test Normal code = 13009-6) [facility] 13:45:00 Test Item Value Reference Range Interpretation Comments POCT GLU (test code = 6075946522) 246 mg/dL 70-110 H Lab Interpretation (test code = Abnormal 58108-1) [facility] [id number] 12:32:00 Test Item Value Reference Range Interpretation Comments HIV Negative Negative Semi-quantitative (test code = 48335-5) JAMES (test code = Non-reactive for HIV-1 JAMES) antigen and HIV-1/HIV-2 antibodies. ?No laboratory evidence of HIV infection. ?Repeat in 2-4 weeks if acute HIV infection is suspected. [facility]CB WITH [id number] 12:18:00 Test Item Value Reference Range Interpretation Comments WBC (test code = See_Comment [Automated 0590-2) message] The sy stem which generated this [...] RDW-SD (test code = 44.4 fL 38.5-51.6 60366-1) RDW-CV (test code = 14.5 % 12.1-15.4 788-0) PLT (test code = See_Comment H [Automated 777-3) message] The sy stem which generated this result transmitted reference range : 150 - 328 10*3/ ?L. The reference r torito was not used to interpret this result as normal/abnormal . MPV (test code = 8.5 fL 9.8-13 L 75575-9) NRBC/100 WBC (test See_Comment [Automat ed code = 2775778060) message] The system which generated this result transmitted reference range : 0.0 - 10.0 /100 WBCs. The refer ence range was not u sed to interpret th is result as normal/abnormal . NRBC x10^3 (test code <0.01 See_Comment [Auto mated = 1500901641) message] The s ystem which generated this result transmitted reference range : 10*3/?L. The reference range was not used to interpret this result as normal/abnormal . GRAN MAT (NEUT) % 90.4 % (test code = 770-8) IMM GRAN % (test code 1.30 % = 4840103920) LYMPH % (test code = 7.1 % 736-9) MONO % (test code = 0.5 % 5905-5) EOS % (test code = 0.1 % 713-8) BASO % (test code = 0.6 % 706-2) GRAN MAT x10^3(ANC) 7.74 10*3/uL 1.99-6.95 H (test code = [id number]) IMM GRAN x10^3 (test 0.11 10*3/uL 0-0.06 H code = 5987107283) LYMPH x10^3 (test code 0.61 10*3/uL 1.09-3.23 L = 731-0) MONO x10^3 (test code 0.04 10*3/uL 0.36-1.02 L = 742-7) EOS x10^3 (test code = <0.03 0.06-0.53 L 711-2) BASO x10^3 (test code 0.05 10*3/uL 0.01-0.09 = 704-7) POLYCHROMASIA (test 2+ See_Comment [Automa ronan code = 26951-9) message] The system which generated this result transmitted reference range : 2+. The referen ce range was not u sed to interpret th is result as normal/abnormal . BANDS (test code = Increased A 6572566565) Lab Interpretation Abnormal (test code = 34217-0) [facility] 11:48:00 Test Item Value Reference Range Interpretation Comments Procalcitonin (test 0.36 ng/mL <0.07 H code = 1729284378) JAMES (test code = JAMES) INTERPRETATION OF [...] lung abscess/empyema. For further information please refer to:[email or web address] Lab Interpretation Abnormal (test code = 90028-0) [facility] CenterLACAATE [id number] 10:53:00 Test Item Value Reference Range Interpretation Comments LDH (test code = 5388055160) 351 U/L 300-600 Lab Interpretation (test code = Normal 25239-6) [facility] CenterSEDIMENTATION [id number] 10:07:00 Test Item Value Reference Range Interpretation Comments ESR (test code = See_Comment H [Automated message] 4765353531) The system [employer] generated this result transmitted ref erence range: 0 - 10 m m/HR. The reference r torito was not used to interpret this result as normal/abnor mal. Lab Interpretation (test Abnormal code = 27822-6) [facility] CenterP[facility] GLUCOSE (AUTOMATED)2020-08-21 09:45:00 Test Item Value Reference Range Interpretation Comments POCT GLU (test code = 1779291432) 287 mg/dL 70-110 H Lab Interpretation (test code = Abnormal 14720-4) [facility] CenterGlycosylated Hemoglobin (A1C)2020-08-21 09:29:00 Test Item Value Reference Range Interpretation Comments HGB A1C (test code = 4548-4) 9.8 % 4-6 H Lab Interpretation (test code = Abnormal 36741-9) [facility] CenterCOVID-19 (ID NOW RAPID TESTING)2020-08-21 09:13:00 Test Item Value Reference Range Interpretation Comments SARS-CoV-2 Rapid ID NOW Not Detected Not Detected (test code = 34213-8) JAMES (test code = AJMES) ID NOW COVID-19 Assay is an isothermal nucleic acid amplification test intended for the qualitative detection of nucleic acid from SARS-CoV-2 viral RNA in nasopharyngeal (RELIGIOUS EDUCATOR) specimens. It is used under Emergency Use [...] indicated. Lab Interpretation Normal (test code = 22575-9) [facility] CenterProthrombin Time / [id number] 08:59:00 Test Item Value Reference Range Interpretation Comments PROTIME PATIENT (test See_Comment H [Auto mated message] code = 5964-2) The system [employer] generated this result transmitted ref erence range: 10.1 - 1 2.6 Seconds. The reference range was not used to int erpret this result as normal/abnormal . INR (test code = 6301-6) Nor mal INR <1.1; Warfarin Therap eutic range 2.0 to 3. 0 or 2.5 to 3.5, dep ending upon the indica tions. Lab Interpretation (test Abnormal code = 19735-8) [facility] CenteraPTT2020-11-09 08:59:00 Test Item Value Reference Range Interpretation Comments APTT Patient (test code = See_Comment [ Automated message] 3173-2) The system [employer] generated this result transmitted ref erence range: 26 - 36 Seconds. The re ference range was not u sed to interpret this result as normal/abnor mal. Lab Interpretation (test Normal code = 49728-5) [facility] CenterBASI METABOLIC PANEL (NA, K, CL, CO2, GLUCOSE, BUN, CREATININE, CA)2020-08-21 08:52:00 Test Item Value Reference Range Interpretation Comments NA (test code = 136 mmol/L 135-145 2219647260) K (test code = 4.3 mmol/L 3.5-5 4434321004) CL (test code = 104 mmol/L 98-108 3135366743) CO2 TOTAL (test code = 24 mmol/L 23-31 1665474555) AGAP (test code = 2-16 6281988747) BUN (test code = 8 mg/dL 7-23 3964264563) GLUCOSE (test code = 308 mg/dL 70-110 H 0471516678) CREATININE (test code = 0.72 mg/dL 0.6-1.25 7837872502) CALCIUM (test code = 7.8 mg/dL 8.6-10.6 L 1885374516) eGFR Calculation mL/min/1.73m2 (Non-) (test code = 0705476497) eGFR Calculation mL/min/1.73m2 () (test code = 4323946372) JAMES (test code = JAMES) Association of [...] tests). Lab Interpretation Abnormal (test code = 25222-2) [facility] CenterHEPATIC FUNCTION PANEL (00120) (ALB,T.PRO,BILI T,BU/BC,ALT,AST,ALK PHOS)2020-08-21 08:52:00 Test Item Value Reference Range Interpretation Comments TOTAL BILI (test code = 5638853628) 0.8 mg/dL 0.1-1.1 BILI UNCON (test code = 9442099184) 0.3 mg/dL 0.1-1.1 BILI CONJ (test code = 0905549473) 0.0 mg/dL 0-0.3 T PROTEIN (test code = 0577251533) 5.7 g/dL 6.3-8.2 L ALBUMIN (test code = 1158248049) 2.7 g/dL 3.5-5 L ALK PHOS (test code = 5532202003) 245 U/L 34-122 H ALTv (test code = 1742-6) 37 U/L 5-50 AST(SGOT) (test code = 5244944984) 43 U/L 13-40 H Lab Interpretation (test code = Abnormal 14677-8) [facility]
--- NOTE | 2021-12-17 15:36 | EDPHYS ---
Physician Documentation [facility] Name: Kiel Ngo Age: 71 yrs Sex: Male : 1950 Arrival Date: 12/17/2021 Time: 15:05 Bed 17 Private MD: ED Physician Rosa Harrison HPI: 12/17 15:35 This 71 yrs old Male presents to ER via EMS with complaints of Leg Pain. pm1 15:35 The patient presents with pain, that is chronic. The complaints affect the right leg. pm1 Context: resulted from a chronic condition. Modifying factors: The symptoms are alleviated by nothing. taking ibuprofen and tylenol at home without any relief. the symptoms are aggravated by movement. Associated signs and symptoms: Pertinent negatives calf tenderness, numbness, swelling, tingling, warmth. Treatment prior to arrival includes: over the counter medications, NSAIDS, Tylenol. Severity of symptoms: in the emergency department the symptoms are unchanged. The patient has experienced similar episodes in the past, chronically. The patient has been recently seen at the [facility] Emergency Department, last week, for similar complaints. Historical: - Allergies: 15:18 Demerol; eo2 15:18 metformin; eo2 15:18 Morphine; eo2 - PMHx: 15:18 Atrial fibrillation; chronic back pain; Chronic right leg pain; neuropathy; eo2 - PSHx: 15:18 back sx; PANCREAS SX; R. Ankle SX; eo2 - Immunization history:: Client reports having NOT received the Covid vaccine. - Social history:: Smoking status: Patient denies any tobacco usage or history of. ROS: 15:35 Constitutional: Negative for fever, chills, and weight loss, Cardiovascular: Negative pm1 for chest pain, palpitations, and edema, Respiratory: Negative for shortness of breath, cough, wheezing, and pleuritic chest pain, Abdomen/GI: Negative for abdominal pain, nausea, vomiting, diarrhea, and constipation, Back: Negative for injury and pain. 15:35 Neuro: Negative for headache, weakness, numbness, tingling, and seizure. 15:35 MS/extremity: Positive for pain, of the right leg. 15:35 All other systems are negative. Exam: 15:35 Constitutional: This is a well developed, well nourished patient who is awake, alert, pm1 and in no acute distress. Head/Face: Normocephalic, atraumatic. 15:35 Skin: Warm, dry with normal turgor. Normal color with no rashes, no lesions, and no evidence of cellulitis. 15:35 Eyes: Exam is negative for acute changes, Extraocular movements: no acute changes, Conjunctiva: no acute changes, no injection. 15:35 ENT: Exam is negative for acute changes, Mouth: no acute changes, Lips: normal, moist, Oral mucosa: normal, pink and intact, moist. 15:35 Cardiovascular: Exam negative for acute changes, Rate: normal, Pulses: no pulse deficits are appreciated, Edema: is not appreciated. 15:35 Respiratory: Exam negative for acute changes, respiratory distress, shortness of breath. 15:35 Musculoskeletal/extremity: Exam is negative for acute changes, calf tenderness, edema, Sensation intact. 15:35 Neuro: Exam negative for acute changes, Orientation: is normal, Mentation: is normal, Motor: is normal, moves all fours. Vital Signs: 15:07 BP 149 / 86 LA (/lg); Pulse 96; Resp 18; Temp 97.8(O); Pulse Ox 98% ; Weight 83.91 kg; mb7 Height 5 ft. 11 in. (180.34 cm); 15:22 BP 166 / 97; Pulse 94; Resp 15; Pulse Ox 95% ; Pain 10/10; eo2 16:18 BP 157 / 94; Pulse 97; Resp 17; Pulse Ox 97% ; Pain 9/10; eo2 15:07 Body Mass Index 25.80 (83.91 kg, 180.34 cm) [facility] MDM: 15:32 Data reviewed: vital signs. Data interpreted: Pulse oximetry: on room air is 95 %. pm1 Interpretation: normal. 15:35 Counseling: I had a detailed discussion with the patient and/or guardian regarding: the pm1 historical points, exam findings, and any diagnostic results supporting the discharge/admit diagnosis, the need for outpatient follow up, for definitive care, a painter airbrush, to return to the emergency department if symptoms worsen or persist or if there are any questions or concerns that arise at home. 15:35 Patient medically screened. pm1 15:51 Special discussion: Based on the history and exam findings, there is no indication for pm1 further emergent testing or inpatient evaluation. I discussed with the patient/guardian the need to see the painter airbrush for further evaluation of the symptoms. Patient well known to the ER for multiple visits to treat his chronic pain to right hip and leg. Patient is currently under the management of Dr. Alonso for pain management and the patient reports appointment scheduled with him at the end of this week. Informed the patient that I discussed his case with my attending and we can not treat his chronic pain in the ER with narcotics. He needs to follow up with his pain management MD for further treatment and repair/replacement of his pain pump. Administered Medications: 15:51 Drug: Ketorolac 30 mg Route: IM; Site: right deltoid; eo2 16:17 Follow up: Response: No adverse reaction eo2 15:51 Drug: Flexeril (cyclobenzaprine) 10 mg Route: PO; eo2 16:17 Follow up: Response: No adverse reaction eo2 16:17 Not Given (Patient Refused): Lidoderm Patch 5 % (700 mg/patch) 1 patches Topical once; eo2 leave on for 12 hours; cover most painful area; may cut into smaller pieces Disposition Summary: 12/17/21 15:35 Discharge Ordered Location: Home pm1 Problem: new pm1 Symptoms: have improved pm1 Condition: Stable pm1 Diagnosis - Chronic pain syndrome pm1 Followup: pm1 - With: Emergency Department - When: As needed - Reason: Worsening of condition Followup: pm1 - With: Madhu Francois DO - When: 2 - 3 days - Reason: Recheck today's complaints, Continuance of care, Re-evaluation by your physician Discharge Instructions: - Discharge Summary Sheet pm1 - Chronic Back Pain pm1 Forms: - Medication Reconciliation Form pm1 - Thank You Letter pm1 - Antibiotic Education pm1 - Prescription Opioid Use pm1 Signatures: Tay Olsen NP [employer] ADMINISTRATOR pm1 Cecilia Cosme RN RN eo2
--- NOTE | 2021-12-17 15:36 | ER ---
Nurse's Notes [facility] Name: Kiel Ngo Age: 71 yrs Sex: Male : 1950 Arrival Date: 12/17/2021 Time: 15:05 Bed 17 Private MD: Diagnosis: Chronic pain syndrome Presentation: 12/17 15:15 Chief complaint: Patient states: Right leg pain onset 3am, "it's curled up, I can't eo2 straighten it out" per pt, took Tylenol, motrin, ASA this morning- no relief, 10/10 pain. Coronavirus screen: Vaccine status: Patient reports being unvaccinated. Ebola Screen: Patient negative for fever greater than or equal to 101.5 degrees Fahrenheit, and additional compatible Ebola Virus Disease symptoms Patient denies exposure to infectious person. Patient denies travel to an Ebola-affected area in the 21 days before illness onset. Initial Sepsis Screen: Does the patient meet any 2 criteria? No. Patient's initial sepsis screen is negative. Does the patient have a suspected source of infection? No. Patient's initial sepsis screen is negative. Risk Assessment: Do you want to hurt yourself or someone else? Patient reports no desire to harm self or others. Onset of symptoms is unknown. 15:15 Method Of Arrival: EMS: [facility] eo2 15:15 Acuity: JOZEF 3 eo2 Triage Assessment: 15:18 General: Appears in no apparent distress. comfortable, Behavior is calm, cooperative. eo2 Pain: Complains of pain in right leg. Historical: - Allergies: 15:18 Demerol; eo2 15:18 metformin; eo2 15:18 Morphine; eo2 - PMHx: 15:18 Atrial fibrillation; chronic back pain; Chronic right leg pain; neuropathy; eo2 - PSHx: 15:18 back sx; PANCREAS SX; R. Ankle SX; eo2 - Immunization history:: Client reports having NOT received the Covid vaccine. - Social history:: Smoking status: Patient denies any tobacco usage or history of. Screenin:22 Abuse screen: Denies threats or abuse. Denies injuries from another. Nutritional eo2 screening: No deficits noted. Tuberculosis screening: No symptoms or risk factors identified. Fall Risk Fall in past 12 months (25 points). Assessment: 15:22 General: Appears in no apparent distress. comfortable, Behavior is calm, cooperative. eo2 Pain: Complains of pain in right leg. Neuro: Level of Consciousness is awake, alert, obeys commands, Oriented to person, place, time, situation, Denies dizziness, headache. Cardiovascular: Denies chest pain, shortness of breath, Capillary refill < 3 seconds. Respiratory: Airway is patent Trachea midline Respiratory effort is even, unlabored, Respiratory pattern is regular, symmetrical, Breath sounds are clear bilaterally. GI: Abdomen is round non-distended, Bowel sounds present X 4 quads. Musculoskeletal: Reports pain in right leg. Vital Signs: 15:07 BP 149 / 86 LA (/lg); Pulse 96; Resp 18; Temp 97.8(O); Pulse Ox 98% ; Weight 83.91 kg; mb7 Height 5 ft. 11 in. (180.34 cm); 15:22 BP 166 / 97; Pulse 94; Resp 15; Pulse Ox 95% ; Pain 10/10; eo2 16:18 BP 157 / 94; Pulse 97; Resp 17; Pulse Ox 97% ; Pain 9/10; eo2 15:07 Body Mass Index 25.80 (83.91 kg, 180.34 cm) mb7 ED Course: 15:05 Patient arrived in ED. ds1 15:05 Cecilia Cosme, DIEGO is Primary Nurse. eo2 15:10 Tay Olsen NP is PHCP. pm1 15:10 Rosa Harrison MD is Attending Physician. pm1 15:18 Triage completed. eo2 15:21 Arm band placed on. eo2 15:22 Patient has correct armband on for positive identification. Pulse ox on. NIBP on. Door eo2 closed. Noise minimized. 15:22 No provider procedures requiring assistance completed. eo2 15:35 Madhu Francois DO is Referral Physician. pm1 16:26 Patient did not have IV access during this emergency room visit. eo2 Administered Medications: 15:51 Drug: Ketorolac 30 mg Route: IM; Site: right deltoid; eo2 16:17 Follow up: Response: No adverse reaction eo2 15:51 Drug: Flexeril (cyclobenzaprine) 10 mg Route: PO; eo2 16:17 Follow up: Response: No adverse reaction eo2 16:17 Not Given (Patient Refused): Lidoderm Patch 5 % (700 mg/patch) 1 patches Topical once; eo2 leave on for 12 hours; cover most painful area; may cut into smaller pieces Outcome: 15:35 Discharge ordered by MD. pm1 16:26 Discharged to home via ambulance. eo2 16:26 Condition: stable 16:26 Discharge instructions given to patient, Instructed on discharge instructions, follow up and referral plans. Demonstrated understanding of instructions, follow-up care. 16:26 Patient left the ED. eo2 Signatures: Ann Vallejo ds1 Tay Olsen NP BANKER MASON pm1 Emelia Beard mb7 Cecilia Cosme RN RN eo2
[2021-12-17] MEDS ORDERED: CYCLOBENZAPRINE 10 MG TAB ONE (15:45)
[2021-12-17] MEDS ORDERED: KETOROLAC 30 MG/ML INJ ONE (15:45)
[2021-12-17 17:03] VITALS: TEMP 97.8
[2021-12-17 17:05] VITALS: BP 157/94; O2SAT 97
== END 2021-12-17 16:26 | disposition home or self-care (01) ==
LOC: ER 15:01
DX: G89.4 Chronic pain syndrome (principal); Z88.5 Allergy status to narcotic agent; Z88.8 Allergy status to other drugs, medicaments and biological substances
CPT/HCPCS: 96372; 99283

== ENCOUNTER 2022-01-05 23:55 | Emergency (ER) | payer OTHER ==
--- OUTSIDE RECORDS SUMMARY | 2022-01-06 00:03 | XMS REPORT | Continuity of Care Document ---
:1950 Author Organization [facility] t Address [address] [place] [address] [place] [id number] Care Team Providers Name Role Phone Edy [...] Expiration Date S ource MEDICARE PART A [id number] 2007 \\T\\ B 00:00:00 [employer] INDEMNITY [id number] 2016 00:00:00 MEDICARE PART A [id number] 2014 \\T\\ B - MEDICARE 00:00:00 INDEMNITY/TRADITIO [id number] NAL CHOICE - [employer] 00:00:00 Problems Condition [...] ents Source Name Type Date Date Clinician [place] Propensi Active Rash 2019- Univers ty to 1-10 ity of adverse 00:00: [place] reaction 00 Medical s Branch PEACH DRUG Active Rash 2019- Univers INGREDI 1-10 ity of 00:00: [place] 00 Medical Branch Lidocain Drug Active Itching 2019- Univers e Allergy -09 ity of 00:00: [place] 00 Medical Branch LIDOCAIN DRUG Active ITCHING 2019- Univers E INGREDI 1-09 ity of 00:00: [place] 00 Medical Branch Meperidi Propensi Active Anaphylaxis 2011-0 U nivers ne ty to 3-16 ity of adverse 00:00: [place] reaction 00 Medical s Branch Glimepir Propensi Active Hives 2011-0 Univer s efren ty to 3-16 ity of adverse 00:00: [place] reaction 00 Medical s Branch Metformi Propensi Active Itching 0 Unive rs n ty to 3-16 ity of adverse 00:00: [place] reaction 00 Medical s Branch MEPERIDI DRUG Active Anaphylaxis Uni vers NE INGREDI 3-16 ity of 00:00: [place] 00 Medical Branch GLIMEPIR DRUG Active Hives Univers EFREN INGREDI 3-16 ity of 00:00: [place] 00 Medical Branch METFORMI DRUG Active ITCHING Univers N INGREDI 3-16 ity of 00:00: [place] 00 Medical Branch Social History Social Habit Start Date Stop Date Quantity Comments Source Exposure to Not sure [place] of SARS-CoV-2 [facility] (event) Branch History of Chews Tobacco University of tobacco use [facility] [place] [facility] History [facility] 2020-11-17 2020-11-17 5 University o f Financial 00:00:00 00:00:00 [facility] [place] [facility] History [facility] Food 2020-11-17 2020-11-17 1 Univers ity of Worry 00:00:00 00:00:00 [facility] [place] [facility] History [facility] Food 2020-11-17 2020-11-17 1 Univers ity of Scarcity 00:00:00 00:00:00 [facility] Branch History [facility] 2020-11-17 2020-11-17 1 University o f Transport Med 00:00:00 00:00:00 [place] Medic al Branch History [facility] 2020-11-17 2020-11-17 1 University o f Transport Non-Med 00:00:00 00:00:00 [facility] edical Branch Education 2020-11-16 2020-11-16 21 [place] of 00:00:00 00:00:00 [facility] [place] [facility] Alcohol intake 2020-11-16 2020-11-16 Ex-drinker [place] of 00:00:00 00:00:00 (finding) [facility] [place] [facility] Tobacco use and 2020-08-21 2020-08-21 Former user Universi ty of exposure 00:00:00 00:00:00 [facility] [place] [facility] Tobacco Comment 2020-08-21 2020-08-21 quit 10 years Univer sity of 00:00:00 00:00:00 ago, started in [place] Med ica 2nd year of Branch college (~40 years) Alcohol Comment 2020-08-21 2020-08-21 Used to have 2-3 Uni versity of 00:00:00 00:00:00 six-packs of [place] Medica l beer daily x 20 Branch years, quit 2005 History [facility] 2020-08-21 2020-08-21 99 University o f Alcohol Frequency 00:00:00 00:00:00 [place] M edical Branch History SDOK 2020-08-21 2020-08-21 99 University o f Alcohol Std 00:00:00 00:00:00 [place] Medical Drinks Branch History SDOK 2020-08-21 2020-08-21 99 [place] o f Alcohol Binge 00:00:00 00:00:00 [place] Medic al Branch Sex [birth year] Universit y of 00:00:00 00:00:00 [facility] [place] [facility] Smoking Status Start Date Stop Date Source Never smoker [facility] Medications Ordered Filled Start Stop Current Ordering [...] by ity of tablet 22:47: mouth at [place] 18 bedtime. Medical Branch [...] 0845, Until Discontinu ed, Routine amLODIPine Yes [id number] 10mg Take 1 Univers 10 mg 3-07 tablet by ity of tablet 00:00: mouth [place] 00 daily. Medical Branch clotrimazol Yes [id number] Apply to Univers e 1 % 3-07 face/ears, ity of topical 00:00: armpits, [place] cream 00 pannus and Medical back/any Branch other rash twice a day fluocinonid 0 Yes [id number] Apply to Univers e 0.05 % 3-07 scalp ity of solution 00:00: twice a [place] 00 day Medical Branch triamcinolo 0 Yes [id number] Apply to Univers ne 3-07 back, ity of acetonide 00:00: armpits [place] 0.1 % cream 00 and other Med ical affected Branch areas twice daily, please mix with clotrimazo le hydrOXYzine 2020-0 Yes [id number] 10mg Take 1 Univers 10 mg 3-07 tablet by ity of tablet 00:00: mouth 2 00 (two) Medical times Branch daily. amLODIPine 2020-0 Yes [id number] 10mg Take 1 Univers 10 mg 3-07 tablet by ity of tablet 00:00: mouth [place] 00 daily. Medical Branch clotrimazol 2020-0 Yes [id number] Apply to Univers e 1 % 3-07 face/ears, ity of topical 00:00: armpits, [place] cream 00 pannus and Medical back/any Branch other rash twice a day fluocinonid 2020-0 Yes [id number] Apply to Univers e 0.05 % 3-07 scalp ity of solution 00:00: twice a day Medical Branch triamcinolo 2020-0 Yes [id number] Apply to Univers ne 3-07 back, ity of acetonide 00:00: armpits [place] 0.1 % cream 00 and other Med ical affected Branch areas twice daily, please mix with clotrimazo le hydrOXYzine 2020-0 Yes [id number] 10mg Take 1 Univers 10 mg 3-07 tablet by ity of tablet 00:00: mouth 2 00 (two) Medical times Branch daily. amLODIPine 2020-0 Yes [id number] 10mg Take 1 Univers 10 mg 3-07 tablet by ity of tablet 00:00: mouth 00 daily. Medical Branch clotrimazol 2020-0 Yes [id number] Apply to Univers e 1 % 3-07 face/ears, ity of topical 00:00: armpits, [place] cream 00 pannus and Medical back/any Branch other rash twice a day fluocinonid 2020-0 Yes [id number] Apply to Univers e 0.05 % 3-07 scalp ity of solution 00:00: twice a [place] 00 day Medical Branch triamcinolo 2020-0 Yes [id number] Apply to Univers ne 3-07 back, ity of acetonide 00:00: armpits [place] 0.1 % cream 00 and other Med ical affected Branch areas twice daily, please mix with clotrimazo le hydrOXYzine Yes [id number] 10mg Take 1 Univers 10 mg 3-07 tablet by ity of tablet 00:00: mouth 2 [place] 00 (two) Medical times Branch daily. amLODIPine Yes [id number] 10mg Take 1 Univers 10 mg 3-07 tablet by ity of tablet 00:00: mouth [place] 00 daily. Medical Branch clotrimazol Yes [id number] Apply to Univers e 1 % 3-07 face/ears, ity of topical 00:00: armpits, [place] cream 00 pannus and Medical back/any Branch other rash twice a day fluocinonid Yes [id number] Apply to Univers e 0.05 % 12-17 scalp ity of solution 00:00: twice a [place] 00 day Medical Branch triamcinolo Yes [id number] Apply to Univers ne 3-07 back, ity of acetonide 00:00: armpits [place] 0.1 % cream 00 and other Med ical affected Branch areas twice daily, please mix with clotrimazo le hydrOXYzine Yes [id number] 10mg Take 1 Univers 10 mg 3-07 tablet by ity of tablet 00:00: mouth 2 [place] 00 (two) Medical times Branch daily. cephALEXin 2020-2020- No [id number] 500mg Take 1 Univers 500 mg 3-04 14- capsule by ity of capsule 00:00: 05:59 mouth [place] 00 :00 every 6 Medical (six) Branch hours for 3 days. cephALEXin 2020-0 2020- No [id number] 500mg Take 1 Univers 500 mg 3-04 14-11 capsule by ity of capsule 00:00: 05:59 mouth [place] 00 :00 every 6 Medical (six) Branch hours for 3 days. hydrOXYzine 2020-2020- No [id number] 10mg Take 1 Univers 10 mg 3-04 14-07 tablet by ity of tablet 00:00: 00:00 mouth 2 [place] 00 :00 (two) Medical times Branch daily. morpHINE Yes 4mg 4 mg, Slow Uni vers injection 4 12-16 IV Push, ity of mg 22:40: Q6HPRN, [...] NaCl 0.9% 2020- No 500mL at 999 [facility] ers (NS) bolus 12-15 mL/hr, 500 it y of infusion 16:00: 15:26 mL, IV [place] 500 mL 00 :00 Piggyback, Medical ONCE, 1 Branch dose, Fri12/15/20 at 1000, STAT HYDROmorpho Yes 4mg 4 mg, Unive ne 12-15 Oral, BID, ity of (DILAUDID) 15:30: First dose [place] tablet 4 mg 00 (after Medica l last Branch modificati on) on Fri12/15/20 at 0930, Until Discontinu ed, Routine amLODIPine 2020- No [id number] 10mg Take 1 Univers 10 mg 12-15 tablet by ity of tablet 00:00: 00:00 mouth [place] 00 :00 daily. Medical Branch HYDROmorpho 2020- No 1mg 1 mg, [facility] ne 12-14 Oral, ity of (DILAUDID) 17:35: 15:18 Q6HPRN, [place] tablet 1 mg 30 :06 Starting Medi [facility] 12/14/20 Branch at 1135, Until Fri12/15/20 at 0918, Routine, Pain (scale 7-10) hydrOXYzine Yes 10mg 10 mg, [facility] ers (ATARAX) 12-14 Oral, BID, ity o f tablet 10 17:30: First dose [place] mg 00 on [facility] 12/14/20 at Branch 1130, Until Discontinu ed, Routine lisinopriL Yes 5mg 5 mg, Univer s (PRINIVIL,Z 12-14 Oral, ity of ESTRIL) 17:30: DAILY, [place] tablet 5 mg 00 First dose Me dical on [facility] 12/14/20 at 1130, Until Discontinu ed, Routine triamcinolo 2020- No [id number] Apply to [facility] 12-14 back, ity of acetonide 00:00: 00:00 armpits [place] 0.1 % cream 00 :00 and other Med ical affected Branch areas twice daily, please mix with clotrimazo le clotrimazol 2020- No [id number] Apply to Univers e 1 % 12-14 face/ears, ity of topical 00:00: 00:00 armpits, [place] cream 00 :00 pannus and Medical back/any Branch other rash twice a day fluocinonid 2020- No [id number] Apply to Univers e 0.05 % 12-14 scalp ity of solution 00:00: 00:00 twice a [place] 00 :00 day Medical Branch hydrOXYzine 2020- No [id number] 10mg Take 1 Univers 10 mg 12-14 [...] (NS) 50 mL at 0822, IV Until Wed piggyback 12/13/20 at 1556, Routine, Nausea and [...] 1 [place] injection 4 00 :00 dose, [facility] ical mg 12/12/20 at Branch 2300, Routine traMADoL 2020- No 50mg 50 mg, Univer s (ULTRAM) 3 03-03 Oral, ity of tablet 50 03:45: 03:34 ONCE, 1 [place] mg 00 :00 dose, [facility] 12/12/20 at Branch 2145, Routine insulin Yes 15U 15 Units, [facility] glargine 12-12 Subcutaneo ity o f (LANTUS 15:00: us, DAILY, [place] U-100) 00 First dose Medical injection on [facility] 15 Units 12/12/20 at 0900, Until Discontinu ed hydrOXYzine 2020- No 10mg 10 mg, Uni vers (ATARAX) 3 03-02 Oral, ity of tablet 10 08:15: 07:33 ONCE, 1 [place] mg 00 :00 dose, [facility] 12/12/20 at Branch 0215, Routine mirtazapine Yes [...] dose [place] capsule 300 00 on Mon Medica l mg 12/11/20 at Branch 2100, Until Discontinu ed, Routine fluocinonid Yes Topical, Un toi e (LIDEX) 3 BID, First ity of 0.05 % 02:00: dose on [place] solution 00 Fri12/11/20 Medic al at 2000, Branch Until Discontinu ed, Routine acetaminoph 2020- No 1{tbl} 1 tablet, Univers en-codeine 12-11 03-05 Oral, ity of (TYLENOL 23:23: 13:49 Q6HPRN, [place] #3) 300-30 43 :08 Starting Medic al mg tablet 1 Fri12/11/20 Br anch tablet at 1723, Until Fri12/15/20 at 0749, Routine, Pain (scale 4-6) enoxaparin Yes 40mg 40 mg, Unive rs (LOVENOX) 12-11 Subcutaneo ity of injection 23:00: us, DAILY, [place] 40 mg 00 First dose Medical on Fri [place] 12/11/20 at 1700, Until Discontinu ed, Routine [...] U-100) First dose Branch injection 5 on [facility] Units 12/11/20 at 1200, Until Discontinu ed Polyethylen Yes 17g 17 g, [facility] rs e Glycol 12-11 Oral, ity of 3350 17:47: [id number], [place] (MIRALAX) 05 Starting Medica l powder [...] STAT piperacilli 2020- No 3.375g 3.375 g, [facility] n-tazobacta 12-11 IV ity of m (ZOSYN) 12:00: 17:48 Piggyback, [place] injection 00 :24 Q6H, First Medi jose c 3.375 g dose on Branch Fri12/11/20 at 0600, Until Discontinu ed, KAHLIL
Re ason for Anti-Infec tive: Empiric Therapy for Suspected Infection< br>Empiric Therapy Site: Skin / Soft tissue
Duration of therapy: 72 hours sennosides- Yes [id number] 1{tbl} Take 1 [facility] docusate 2- tablet by ity of sodium 00:00: mouth 2 [place] 8.6-50 mg 00 (two) Medical per tablet times Branch daily. hydrocortis Yes [id number] Apply to [facility] one 2.5 % 11-21 affected ity of cream 00:00: area(s) 2 [place] 00 (two) Medical times Branch daily. blood sugar Yes [id number] Use to [facility] diagnostic 11-21 check ity of (FREESTYLE 00:00: blood [place] LITE 00 glucose Medical STRIPS) 4-5 times Branch strip daily. Polyethylen Yes [id number] 17g Take 1 [facility] e Glycol 2-09 Packet by ity of 3350 17 00:00: mouth [place] gram powder 00 every 24 Medi jose c (twenty-fo Branch ur) hours as needed for Constipati on. sennosides- Yes [id number] 1{tbl} Take 1 Univers docusate 2-09 tablet by ity of sodium 00:00: mouth 2 [place] 8.6-50 mg 00 (two) Medical per tablet times Branch daily. hydrocortis 2020-0 Yes [id number] Apply to Univers one 2.5 % 2-09 affected ity of cream 00:00: area(s) 2 [place] 00 (two) Medical times Branch daily. blood sugar 2020-0 Yes [id number] Use to Univers diagnostic 11-21 check ity of (FREESTYLE 00:00: blood [place] LITE 00 glucose Medical STRIPS) 4-5 times Branch strip daily. Polyethylen 2020-0 Yes [id number] 17g Take 1 Univers e Glycol 2-09 Packet by ity of 3350 17 00:00: mouth [place] gram powder 00 every 24 Medi jose c (twenty-fo Branch ur) hours as needed for Constipati on. sennosides- 2020-0 Yes [id number] 1{tbl} Take 1 Univers docusate 2-09 tablet by ity of sodium 00:00: mouth 2 [place] 8.6-50 mg 00 (two) Medical per tablet times Branch daily. hydrocortis 2020-0 Yes [id number] Apply to Univers one 2.5 % 2-09 affected ity of cream 00:00: area(s) 2 [place] 00 (two) Medical times Branch daily. blood sugar 2020-0 Yes [id number] Use to [facility] diagnostic 11-21 check ity of (FREESTYLE 00:00: blood [place] LITE 00 glucose Medical STRIPS) 4-5 times Branch strip daily. Polyethylen 2020-0 Yes [id number] 17g Take 1 Univers e Glycol 2-09 Packet by ity of 3350 17 00:00: mouth [place] gram powder 00 every 24 Medi jose c (twenty-fo Branch ur) hours as needed for Constipati on. sennosides- 2020-0 Yes [id number] 1{tbl} Take 1 Univers docusate 2-09 tablet by ity of sodium 00:00: mouth 2 [place] 8.6-50 mg 00 (two) Medical per tablet times Branch daily. hydrocortis 2020-0 Yes [id number] Apply to Univers one 2.5 % 2-09 affected ity of cream 00:00: area(s) 2 [place] 00 (two) Medical times Branch daily. blood sugar Yes [id number] Use to [facility] diagnostic 11-21 check ity of (FREESTYLE 00:00: blood [place] LITE 00 glucose Medical STRIPS) 4-5 times Branch strip daily. Polyethylen Yes [id number] 17g Take 1 Univers e Glycol 11-21 Packet by ity of 3350 17 00:00: mouth [place] gram powder 00 every 24 Medi jose c (twenty-fo Branch ur) hours as needed for Constipati on. Insulin 2020- No [id number] 15U inject 15 Univers Glargine 11-21 Units ity of (LANTUS 00:00: 05:59 under the [place] SOLOSTAR 00 :00 skin every Medic al U-100 morning Branch INSULIN) for 30 100 unit/mL days. (3 mL) injection venlafaxine 2020- No [id number] 150mg Take 1 Univers XR 150 mg 11-21 capsule by ity of 24 hr 00:00: 05:59 mouth 3 [place] capsule 00 :00 (three) Medical times Branch daily for 30 days. Insulin 2020- No [id number] 15U inject 15 Univers Glargine 11-21 Units ity of (LANTUS 00:00: 05:59 under the [place] SOL[place]AR 00 :00 skin every Medic al U-100 morning Branch INSULIN) for 30 100 unit/mL days. (3 mL) injection venlafaxine 2020- No [id number] 150mg Take 1 Univers XR 150 mg 11-21 capsule by ity of 24 hr 00:00: 05:59 mouth 3 [place] capsule 00 :00 (three) Medical times Branch daily for 30 days. triamcinolo 2020- No [id number] Apply to [facility] ne 11-21 area(s) 2 ity of acetonide 00:00: 00:00 (two) [place] 0.1 % cream 00 :00 times Medical daily. Branch cephALEXin 2020- No [id number] 1000mg Take 2 Univers 500 mg 11-21 capsules ity of capsule 00:00: 00:00 by mouth 3 [place] 00 :00 (three) Medical times Branch daily. doxycycline 2020- No [id number] 100mg Take 1 Univers hyclate 100 11-21 capsule by i ty of mg capsule 00:00: 00:00 mouth [place] 00 :00 every 12 Medical (twelve) Branch hours. lactobacill 2020- No [id number] 1{tbl} Take 1 Univers us 11-21 tablet by ity of acidophilus 00:00: 00:00 mouth 2 [place] 25 million 00 :00 (two) Medical cell -100 times Branch mg captab daily. bisacodyL 2020- No [id number] 10mg Insert 1 Univers 10 mg 11-21 Suppositor ity of suppository 00:00: 00:00 y into [place] 00 :00 rectum at Medical bedtime as Branch needed for Constipati on. ALPRAZolam 2020- No [id number] .25mg Take 1 Univers (XANAX) 11-21 tablet by ity of 0.25 mg 00:00: 00:00 mouth 2 [place] tablet 00 :00 (two) Medical times Branch daily. hydrOXYzine 2020- No [id number] 20mg Take 2 Univers 10 mg 11-21 [...] Units ity of (LANTUS 01:13: under the [facility]) 36 skin. Medical 100 unit/mL Branch (3 mL) InPn INSULIN 2019-10 Yes 5U inject 5 Univer s ASPART 1-12 Units ity of (NOVOLOG 01:13: under the [facility] [place] [facility] FLEXPEN SC) 36 skin. Medical Branch ALPRAZolam [...] ity of (LANTUS 01:13: under the [place] [facility]) 36 skin. Medical 100 unit/mL Branch (3 mL) In INSULIN 2019- Yes 5U inject 5 Univer s ASPART 1-12 Units ity of (NOVOLOG 01:13: under the [facility] [place] [facility] FLEXPEN [place]) 36 skin. Medical Branch ALPRAZolam [...] Units ity of (LANTUS 01:13: under the [facility]) 36 skin. Medical 100 unit/mL Branch (3 mL) In INSULIN 2019- Yes 5U inject 5 Univer s ASPART 1-12 Units ity of (NOVOLOG 01:13: under the [facility] [place] [facility] FLEXPEN [place]) 36 skin. Medical Branch ALPRAZolam [...] 100 unit/mL Branch (3 mL) InPn INSULIN 2020-1 Yes 5U inject 5 Univer s ASPART [...] mouth ity of ORAL 20:04: 00:00 daily. [place] 34 :00 Medical Branch hydrocortis 2019- Yes [id number] Apply to Univers one 2.5 % 1-11 affected ity of cream 00:00: area(s) 2 [place] 00 (two) Medical times Branch daily. hydrOXYzine 2019- Yes [id number] 20mg Take 2 Univers 10 mg 1-11 tablets by ity of tablet 00:00: mouth [place] 00 every 8 Medical (eight) Branch hours as needed for Itching or Anxiety. Polyethylen 2019- Yes [id number] 17g Take 1 Univers e Glycol 1-11 Packet by ity of 3350 17 00:00: mouth [place] gram powder 00 every 24 Medi jose c (twenty-fo Branch ur) hours as needed for Constipati on. hydrocortis 2019-10 Yes [id number] Apply to Univers one 2.5 % 1-11 affected ity of cream 00:00: area(s) 2 [place] 00 (two) Medical times Branch daily. hydrOXYzine 2019- Yes [id number] 20mg Take 2 Univers 10 mg 1-11 tablets by ity of tablet 00:00: mouth [place] 00 every 8 Medical (eight) Branch hours as needed for Itching or Anxiety. Polyethylen 2019- Yes [id number] 17g Take 1 Univers e Glycol 1-11 Packet by ity of 3350 17 00:00: mouth [place] gram powder 00 every 24 Medi jose c (twenty-fo Branch ur) hours as needed for Constipati on. hydrocortis 2019- Yes [id number] Apply to Univers one 2.5 % 1-11 affected ity of cream 00:00: area(s) 2 [place] 00 (two) Medical times Branch daily. hydrOXYzine 2019- Yes [id number] 20mg Take 2 Univers 10 mg 1-11 tablets by ity of tablet 00:00: mouth [place] 00 every 8 Medical (eight) Branch hours as needed for Itching or Anxiety. Polyethylen 2020- Yes [id number] 17g Take 1 Univers e Glycol 1-11 Packet by ity of 3350 17 00:00: mouth [place] gram powder 00 every 24 Medi jose c (twenty-fo Branch ur) hours as needed for Constipati on. hydrocortis 2019- Yes [id number] Apply to Univers one 2.5 % 1-11 affected ity of cream 00:00: area(s) 2 [place] 00 (two) Medical times Branch daily. hydrOXYzine 2019- Yes [id number] 20mg Take 2 Univers 10 mg 1-11 tablets by ity of tablet 00:00: mouth [place] 00 every 8 Medical (eight) Branch hours as needed for Itching or Anxiety. Polyethylen 2019- Yes [id number] 17g Take 1 Univers e Glycol 1-11 Packet by ity of 3350 17 00:00: mouth [place] gram powder 00 every 24 Medi jose c (twenty-fo Branch ur) hours as needed for Constipati on. hydrocortis 2019- Yes [id number] Apply to Univers one 2.5 % 1-11 affected ity of cream 00:00: area(s) 2 [place] 00 (two) Medical times Branch daily. hydrOXYzine 2019- Yes [id number] 20mg Take 2 Univers 10 mg 1-11 tablets by ity of tablet 00:00: mouth [place] 00 every 8 Medical (eight) Branch hours as needed for Itching or Anxiety. Polyethylen 2019- Yes [id number] 17g Take 1 Univers e Glycol 1-11 Packet by ity of 3350 17 00:00: mouth [place] gram powder 00 every 24 Medi jose c (twenty-fo Branch ur) hours as needed for Constipati on. hydrocortis 2019- Yes [id number] Apply to Univers one 2.5 % 1-11 affected ity of cream 00:00: area(s) 2 [place] 00 (two) Medical times Branch daily. hydrOXYzine 2019- Yes [id number] 20mg Take 2 Univers 10 mg 1-11 tablets by ity of tablet 00:00: mouth [place] 00 every 8 Medical (eight) Branch hours as needed for Itching or Anxiety. Polyethylen 2020- Yes [id number] 17g Take 1 Univers e Glycol 1-11 Packet by ity of 3350 17 00:00: mouth [place] gram powder 00 every 24 Medi jose c (twenty-fo Branch ur) hours as needed for Constipati on. hydrocortis 2019-10 Yes [id number] Apply to [facility] one 2.5 % 1-11 affected ity of cream 00:00: area(s) 2 [place] 00 (two) Medical times Branch daily. hydrOXYzine 2019-10 Yes [id number] 20mg Take 2 Univers 10 mg 1-11 tablets by ity of tablet 00:00: mouth [place] 00 every 8 Medical (eight) Branch hours as needed for Itching or Anxiety. Polyethylen 2019-10 Yes [id number] 17g Take 1 Univers e Glycol 1-11 Packet by ity of 3350 17 00:00: mouth [place] gram powder 00 every 24 Medi jose c (twenty-fo Branch ur) hours as needed for Constipati on. triamcinolo 2019-10 2020- No [id number] Apply to [facility] 10-23 area(s) 2 ity of acetonide 00:00: 05:59 (two) [place] 0.1 % cream 00 :00 times Medical daily for Branch 14 days. triamcinolo 2019-10 2020- No [id number] Apply to [facility] 10-23 area(s) 2 ity of acetonide 00:00: 05:59 (two) [place] 0.1 % cream 00 :00 times Medical daily for Branch 14 days. triamcinolo 2019-10 2020- No [id number] Apply to [facility] 10-23 area(s) 2 ity of acetonide 00:00: 05:59 (two) [place] 0.1 % cream 00 :00 times Medical daily for Branch 14 days. KCL 2019-10 2020- No 40meq 40 mEq, Univers (KLOR-CON 1- 11-10 Oral, ONCE ity of M20) tablet 16:15: 16:23 NOW, 1 [place] 40 mEq 00 :00 dose, [facility] 08/22/20 Branch at 1015, Routine HYDROmorpho 2019-10 Yes 1mg 1 mg, Unive rs ne 1-10 Oral, ity of (DILAUDID) 15:07: Q6HPRN, [place] tablet 1 mg 53 Starting Medi jose c Tue Branch 08/22/20 at 0907, Until Discontinu ed, Routine, Pain (scale 7-10) hydrocortis 2019- Yes Topical Uni vers one 2.5 % 1-10 (Apply To ity o f cream 02:00: Affected [place] 00 Areas), Medical BID, First Branch dose on [facility] 08/21/20 at 2000, Until Discontinu ed, Routine triamcinolo 2019- Yes Topical, Un toi ne 1-10 BID, First ity of acetonide 02:00: dose on [place] (TRIDERM) 00 [facility] Medical 0.1 % cream 08/21/20 at Br anch 2000, Until Discontinu ed, Routine hydrOXYzine 2019- Yes 20mg 20 mg, Univ ers (ATARAX) 09 Oral, ity of tablet 20 17:39: Q8HPRN, [place] mg 12 Starting Medical [facility] 08/21/20 at 1139, Until Discontinu ed, Routine, Itching, Anxiety sennosides- 2019-10 Yes 1{tbl} 1 tablet, Univers docusate 10-21 Oral, ity of sodium 15:00: DAILY, [place] (SENOKOT-S) 00 First dose Me dical 8.6-50 mg [address] [facility] per tablet 08/21/20 at 1 tablet 0900, Until Discontinu ed, Routine hydrocortis 2019-10 2020- No Topical Un toi one 1 % 10-21 (Apply To ity of cream 15:00: 22:54 Affected [place] 00 :48 Areas), Medical DAILY, Branch First dose on Fri08/21/20 at 0900, Until Discontinu ed, Routine venlafaxine 2019- Yes 150mg 150 mg, Un toi XR (EFFEXOR -09 Oral, TID, it y of XR) 24 hr 14:00: First dose [place] capsule 150 00 on [facility] Medica l mg 08/21/20 at Branch 0800, Until Discontinu ed, Routine heparin 2019- Yes 5000U 5,000 Univers (porcine) -09 Units, ity of injection 14:00: Subcutaneo [place] 5,000 Units 00 us, Q12H, Med ical First dose Branch on [facility] 08/21/20 at 0800, Until Discontinu ed, Routine diphenhydrA 2019-10 2020- No 25mg 25 mg, Uni vers MINE 10-21 Oral, ity of (BENADRYL) 12:56: 17:39 Q8HPRN, Jeff as tablet 25 59 :43 Starting Medica l mg [facility] 08/21/20 at 0656, Until [facility] 08/21/20 at 1139, Routine, Itching, Mild Rash, Congestion /Allergies , alternate with hydroxyzin e hydrOXYzine 2019-10- No 10mg 10 mg, Uni vers (ATARAX) 10-21 Oral, ity of tablet 10 10:20: 12:57 Q6HPRN, [place] mg 22 :12 Starting [facility] 08/21/20 at 0420, Until [facility] 08/21/20 at 0657, Routine, Itching, Anxiety Sliding 2019-10 Yes Subcutaneo Univ ers Scale 09 us, Q4H, ity of Insulin - 10:00: [place] Aspart 00 (after Medical (NOVOLOG) + last Branch Fsbg modificati Testing on) on [facility] 08/21/20 at 0400, Until Discontinu ed, Routine lidocaine 5 2019-10 2020- No Topical, U nivers % ointment 10-21 ONCE, 1 ity o f 09:30: 09:14 dose, [facility] 00 :00 08/21/20 at [facility] 0330, Branch Routine Polyethylen 2019-10 Yes 17g 17 g, [facility] rs e Glycol 10-21 Oral, ity of 3350 08:29: T99QACE, [place] (MIRALAX) Starting Medica l powder [address] [facility] 08/21/20 at 0229, Until Discontinu ed, Routine, Constipati on lanolin 2019-10 Yes Topical, [facility] alcohol-- 10-21 PRN, ity of w.pet-ceres 08:26: [place] (EUCERIN) 30 [facility] cream 08/21/20 at Branch 0226, Until Discontinu ed, Routine, Dermatitis /Rash ALPRAZolam 2019-10 Yes .25mg 0.25 mg, Un toi (XANAX) 10-21 Oral, ity of tablet 0.25 08:25: BIDPRN, [place] as mg 41 Starting [facility] 08/21/20 at 0225, Until Discontinu ed, Routine, [...] tablet 650 24 Starting Medic al mg [facility] Branch 08/21/20 at 0145, Until Discontinu ed, Routine, Pain (scale 1-3) sotalol 2019-10 2020- No Take by Unive rs (BETAPACE) 10-21 mouth ity of 240 mg 07:43: 00:00 every 12 [place] tablet 30 :00 (twelve) Medical hours. Branch blood sugar Yes Use to Kickit With ers diagnostic -25 check ity of (FREESTYLE 00:00: blood [place] LITE 00 glucose Medical STRIPS) 4-5 times Branch strip daily. blood sugar Yes Use to Kickit With ers diagnostic 4-25 check ity of (FREESTYLE 00:00: blood [place] LITE 00 glucose Medical STRIPS) 4-5 times Branch strip daily. blood sugar Yes Use to Kickit With ers diagnostic 4-25 check ity of (FREESTYLE 00:00: blood [place] LITE 00 glucose Medical STRIPS) 4-5 times Branch strip daily. blood sugar Yes Use to Kickit With ers diagnostic 4-25 check ity of (FREESTYLE 00:00: blood [place] LITE 00 glucose Medical STRIPS) 4-5 times Branch strip daily. blood sugar Yes Use to Kick[facility] With ers diagnostic 4-25 check ity of (FREESTYLE 00:00: blood [place] LITE 00 glucose Medical STRIPS) 4-5 times Branch strip daily. blood sugar Yes Use to [facility] ers diagnostic 4-25 check ity of (FREESTYLE [...] 13:00:00 148 mm[Hg] Univer sity of pressure [facility] [place] [facility] Diastolic blood 2021-08-22 13:00:00 84 mm[Hg] Unive rsity of [facility] Heart rate 2021-08-22 13:00:00 103 /min [facility] Respiratory rate 2021-08-22 13:00:00 18 /min [facility] [place] [facility] Oxygen saturation in 2021-08-22 13:00:00 95 /min University of Arterial blood by [facility] Pulse oximetry Branch Body temperature 2021-08-22 12:22:00 36.72 [place] [facility] ersohiohealth of [facility] [place] [facility] Systolic blood 2020-12-17 18:35:00 139 mm[Hg] Univer sity of pressure [place] [facility] Diastolic blood 2020-12-17 18:35:00 87 mm[Hg] Unive rsity of [facility] Heart rate 2020-12-17 18:35:00 110 /min [facility] Body temperature 2020-12-17 18:35:00 37.72 [place] [facility] ersity of [facility] Branch Respiratory rate 2020-12-17 18:35:00 18 /min Univ ersity [facility] Branch Oxygen saturation in 2020-12-17 18:35:00 93 /min University of Arterial blood by [facility] Pulse oximetry Branch Body height 2020-12-12 08:21:00 180.3 cm [facility] Body weight 2020-12-12 08:21:00 103.42 kg [facility] BMI 2020-12-12 08:21:00 31.80 kg/m2 [facility] Systolic blood 2020-12-17 18:35:00 139 mm[Hg] Univer sity of pressure [place] [facility] Diastolic blood 2020-12-17 18:35:00 87 mm[Hg] Unive rsity of pressure [place] [facility] Heart rate 2020-12-17 18:35:00 110 /min Universi ty of [place] [facility] Body temperature 2020-12-17 18:35:00 37.72 [place] Univ ersity of [place] [facility] Respiratory rate 2020-12-17 18:35:00 18 /min Univ ersity of [place] [facility] Oxygen saturation in 2020-12-17 18:35:00 93 /min University of Arterial blood by [employer] Pulse oximetry Branch Body height 2020-12-12 08:21:00 180.3 cm Universi ty of [place] [facility] [place] Body weight 2020-12-12 08:21:00 103.42 kg Universi ty of [place] [facility] BMI 2020-12-12 08:21:00 31.80 kg/m2 [...] /min University of Arterial blood by [place] [employer] [facility] Pulse oximetry Branch Body weight [...] Branch Body temperature 2020-08-23 19:27:00 36 [facility] Respiratory rate 2020-08-23 19:27:00 18 /min [facility] Oxygen saturation in 2020-08-23 19:27:00 93 /min [facility] Arterial blood by [facility] Pulse oximetry [place] Body weight 2020-08-21 07:20:00 104.962 kg [facility] BMI 2020-08-21 07:20:00 32.27 kg/m2 [facility] Procedures Procedure Date / Time Performing Clinician Source Performed POCT GLUCOSE (AUTOMATED) 2020-12-17 15:42:00 Harrison, Premal [facility] [place] [facility] BASIC METABOLIC PANEL 2020-12-17 10:45:00 Paul Bean [facility] (NA, K, CL, CO2, GLUCOSE, Kaley Medica l Branch BUN, CREATININE, CA) CBC WITH DIFF 2020-12-17 10:45:00 Paul Bean [facility] POCT GLUCOSE (AUTOMATED) 2020-12-17 02:36:00 Harrison, Premal G [facility] [place] [facility] XR TIBIA FIBULA 2 VW LEFT 2020-12-16 23:38:[address] [facility] POCT GLUCOSE (AUTOMATED) 2020-12-16 23:20:00 Harrison, Premal [facility] [place] [facility] POCT GLUCOSE (AUTOMATED) 2020-12-16 20:10:00 Harrison, Premal G Uni versity of [facility] [place] [facility] POCT GLUCOSE (AUTOMATED) 2020-12-16 14:43:00 Harrison, Premal G [facility] [place] [facility] BASIC METABOLIC PANEL 2020-12-16 13:51:00 Paul Bean [facility] (NA, K, CL, CO2, GLUCOSE, [place] Medica l Branch BUN, CREATININE, CA) CBC WITH DIFF 2020-12-16 13:51:00 Paul Bean [facility] POCT GLUCOSE (AUTOMATED) 2020-12-16 04:00:00 Harrison, Premal [facility] [place] [facility] POCT GLUCOSE (AUTOMATED) 2020-12-16 00:14:00 Harrison, Premal G Uni versity of [facility] [place] [facility] CT CHEST PULMONARY 2020-12-15 22:29:38 Paul Bean [facility] ANGIOGRAM [facility] POCT GLUCOSE (AUTOMATED) 2020-12-15 19:26:00 Harrison, Premal G Uni versity of [facility] [place] [facility] POCT GLUCOSE (AUTOMATED) 2020-12-15 15:13:00 Harrison, Premal G Uni versity of [facility] [place] [facility] HB ECG ROUTINE & RHYTHM 2020-12-15 14:25:27 Cailin Romo [facility] Branch MAGNESIUM 2020-12-15 12:01:00 Paul Bean [facility] BASIC METABOLIC PANEL 2020-12-15 12:01:00 Paul Bean [facility] (NA, K, CL, CO2, GLUCOSE, [place] Medica l Branch BUN, CREATININE, CA) CBC WITH DIFF 2020-12-15 12:01:00 Paul Bean [facility] POCT GLUCOSE (AUTOMATED) 2020-12-15 03:57:00 Harrison, Premal G Uni versity of [facility] [place] [facility] POCT GLUCOSE (AUTOMATED) 2020-12-14 23:31:00 Harrison, Premal G Uni versity of [facility] [place] [facility] POCT GLUCOSE (AUTOMATED) 2020-12-14 19:08:00 Harrison, Premal G Uni versity of [facility] [place] [facility] POCT GLUCOSE (AUTOMATED) 2020-12-14 15:11:00 Harrison, Premal G Uni versity of [facility] Branch POCT GLUCOSE (AUTOMATED) 2020-12-14 02:36:00 Harrison, Premal G Uni versity of [facility] [place] [facility] POCT GLUCOSE (AUTOMATED) 2020-12-13 23:32:00 Hrarison, Premal G Uni versity of [facility] [place] [facility] POCT GLUCOSE (AUTOMATED) 2020-12-13 18:08:00 Harrison, Premal G Uni versity of [facility] [place] [facility] BASIC METABOLIC PANEL 2020-12-13 15:39:00 Paul Bean [facility] (NA, K, CL, CO2, GLUCOSE, [place] Medica l Branch BUN, CREATININE, CA) CBC WITH DIFF 2020-12-13 15:39:00 Paul Bean [facility] POCT GLUCOSE (AUTOMATED) 2020-12-13 14:06:00 Harrison, Premal G [facility] [place] [facility] POCT GLUCOSE (AUTOMATED) 2020-12-13 03:07:00 Harrison, Premal G [facility] [place] [facility] POCT GLUCOSE (AUTOMATED) 2020-12-12 23:52:00 Harrison, Premal G Uni versohiohealth of [facility] [place] [facility] POCT GLUCOSE (AUTOMATED) 2020-12-12 20:28:00 Harrison, Premal G [facility] [place] [facility] POCT GLUCOSE (AUTOMATED) 2020-12-12 19:14:00 Harrison, Premal G [facility] [place] [facility] POCT GLUCOSE (AUTOMATED) 2020-12-12 14:33:00 Harrison, Premal G [facility] [place] [facility] MAGNESIUM 2020-12-12 08:58:00 Paul Bean Sivakumar [facility] BASIC METABOLIC PANEL 2020-12-12 08:58:00 Paul Bean [facility] (NA, K, CL, CO2, GLUCOSE, [facility]aley [facility] BUN, CREATININE, CA) CBC WITH DIFF 2020-12-12 08:58:00 Paul Bean Sivakumar [facility] US ABDOMEN LIMITED 2020-12-12 06:32:26 Paul Bean [facility] POCT GLUCOSE (AUTOMATED) 2020-12-12 03:40:00 Harrison, Premal G Uni [facility] POCT GLUCOSE (AUTOMATED) 2020-12-12 00:06:00 Harrison, Premal G Uni [facility] XR HIPS 3 VW LEFT 2020-12-11 20:20:[address] [facility] HB ECG ROUTINE & RHYTHM 2020-12-11 20:04:06 Cailin Romo [facility] VITAMIN B6, PLASMA 2020-12-11 19:17:00 Darnell Beanaham Sivakumar [facility] POCT GLUCOSE (AUTOMATED) 2020-12-11 19:06:00 Rene Harrison [facility] CREATINE KINASE 2020-12-11 18:22:00 Parvez Clarisse [facility] VITAMIN B12, LEVEL 2020-12-11 18:22:00 Paul Bean [facility] FOLATE 2020-12-11 18:22:00 [facility] THYROID STIMULATING 2020-12-11 18:22:00 Cailin Romo [facility] HORMONE [facility] PROCALCITONIN 2020-12-11 18:22:00 Vikas [facility] VITAMIN B1 (THIAMINE), 2020-12-11 18:22:00 Paul Bean Sivakumar [facility] WHOLE BLOOD [facility] CT HEAD WO CONTRAST 2020-12-11 14:07:35 Sweetie Stout [facility] URINALYSIS 2020-12-11 13:44:00 Singer [facility] URINE CULTURE 2020-12-11 13:44:00 Singer [facility] COVID-19 (ID NOW RAPID 2020-12-11 12:31:00 Paco Lacey [facility] TESTING) Medical [place] LAB ONLY COVID 2020-12-11 12:31:00 Singer [facility] XR CHEST 1 VW 2020-12-11 12:07:24 Singer [facility] BLOOD CULTURE SCREEN 2020-12-11 12:02:00 Paco Lacey [facility] MAGNESIUM 2020-12-11 12:02:00 Paul Bean [facility] FERRITIN SERUM 2020-12-11 12:02:00 Darnell Beanaham Sivakumar [facility] COMP. METABOLIC PANEL 2020-12-11 12:02:00 Paco Lacey [facility] ([id number]) Medical Branch CBC WITH DIFF 2020-12-11 12:02:00 Singer [facility] LACTIC ACID WHOLE BLOOD 2020-12-11 12:02:00 Paco Lacey [facility] BLOOD CULTURE SCREEN 2020-12-11 11:42:00 Paco Lacey [facility] EMERGENCY SERVICES 2020-12-11 06:01:00 Doctor Tabitha, [facility] AGREEMENTS AND [place] [facility] AUTHORIZATIONS HOSPITAL ADMISSION 2020-12-11 06:01:00 Doctor Tabitha [facility] Name Medical [place] HOME HEALTH - OTHER 2020-11-11 06:01:00 Doctor Tabitha [facility] Name Medical [facility] HEALTH - OTHER 2020-10-30 06:01:00 Doctor Tabitha [facility] Name [facility] EXTERNAL PROVIDER RECORDS 2020-09-01 06:01:00 Doctor Tabitha, [facility] Name [facility] POCT GLUCOSE (AUTOMATED) 2020-08-23 18:09:00 Kelly [place] [facility] POCT GLUCOSE (AUTOMATED) 2020-08-23 14:14:00 Kelly [place] [facility] MAGNESIUM 2020-08-23 11:18:00 [facility] BASIC METABOLIC PANEL 2020-08-23 11:18:00 [facility] (NA, K, CL, CO2, GLUCOSE, Medica l Branch BUN, CREATININE, CA) CBC WITH DIFF 2020-08-23 11:18:00 [facility] POCT GLUCOSE (AUTOMATED) 2020-08-23 10:21:00 Kelly Washington [facility] POCT GLUCOSE (AUTOMATED) 2020-08-23 05:55:00 Kelly Washington [facility] POCT GLUCOSE (AUTOMATED) 2020-08-23 03:00:00 Kelly Washington [facility] POCT GLUCOSE (AUTOMATED) 2020-08-22 23:38:00 Kelly Washington [facility] POCT GLUCOSE (AUTOMATED) 2020-08-22 19:04:00 Kelly Washington [facility] POCT GLUCOSE (AUTOMATED) 2020-08-22 13:49:00 Kelly Washington [facility] MAGNESIUM 2020-08-22 10:10:[address] [place] [facility] HEPATIC FUNCTION PANEL 2020-08-22 10:10:00 Aguila Melchor [facility] ([id number]) (ALB,T.PRO,BILI Medical Branch T,BU/BC,ALT,AST,ALK PHOS) BASIC METABOLIC PANEL 2020-08-22 10:10:00 [place], [facility] (NA, K, CL, CO2, GLUCOSE, Medica l Branch BUN, CREATININE, CA) LIPID PANEL ([id number])(TOTAL 2020-08-22 10:10:00 [place], [facility] CHOLESTEROL, [facility] TRIGLYCERIDES, HDL) CBC WITH DIFF 2020-08-22 10:10:00 [facility] POCT GLUCOSE (AUTOMATED) 2020-08-22 10:10:00 Kelly Washington [facility] POCT GLUCOSE (AUTOMATED) 2020-08-22 07:13:00 Kelly Washington [facility] POCT GLUCOSE (AUTOMATED) 2020-08-22 02:24:00 Kelly Washington [facility] POCT GLUCOSE (AUTOMATED) 2020-08-21 23:40:00 Kelly Washington [facility] POCT GLUCOSE (AUTOMATED) 2020-08-21 18:10:00 Kelly Washington [facility] POCT GLUCOSE (AUTOMATED) 2020-08-21 13:39:00 Kelly [place] [facility] ETHANOL 2020-08-21 12:35:00 Jos Quiroz [facility] ACTIVATED PARTIAL 2020-08-21 12:35:00 Padmini Kelly [facility] THRMPLAS [facility] GALV ONLY - SYPHILIS 2020-08-21 12:35:00 Kelly Washington [facility] IGG/IGM [facility] LACTATE DEHYDROGENASE 2020-08-21 10:09:00 [place], [facility] GALV/CLC ONLY - URINE 2020-08-21 10:09:00 Jos Quiroz [facility] DRUG (IMMUNOASSAY) - 4 ER Medica l Branch PANEL URINALYSIS 2020-08-21 10:09:00 [place], [facility] URINE CULTURE 2020-08-21 10:09:00 [place], [facility] PROCALCITONIN 2020-08-21 10:09:00 Ramya, [facility] POCT GLUCOSE (AUTOMATED) 2020-08-21 09:41:00 Kelly Washington [facility] PROTHROMBIN TIME / INR 2020-08-21 08:32:00 Ramya, [facility] ACTIVATED PARTIAL 2020-08-21 08:32:00 Ramya, [facility] C-REACTIVE PROTEIN 2020-08-21 08:31:00 [place], [facility] HEPATIC FUNCTION PANEL 2020-08-21 08:31:00 Ramya, [facility] ([id number]) (ALB,T.PRO,BILI Medical Branch T,BU/BC,ALT,AST,ALK PHOS) BASIC METABOLIC PANEL 2020-08-21 08:31:00 [place], [facility] (NA, K, CL, CO2, GLUCOSE, [facility] [place] BUN, CREATININE, CA) SEDIMENTATION RATE 2020-08-21 08:31:00 [place], [facility] CBC WITH DIFF 2020-08-21 08:31:00 Ramya, [facility] GLYCOSYLATED HEMOGLOBIN 2020-08-21 08:31:00 [place], [facility] (A1C) [facility] HIV 1/2 AG-AB WITH REFLEX 2020-08-21 08:31:00 [facility] (ID NOW RAPID 2020-08-21 08:20:00 Ramya, [facility] TESTING) Medical Branch LAB ONLY COVID 2020-08-21 08:20:00 [place], [facility] Encounters Start End Encounter Admission Attending Care Care Encounter Source Date/Time Date/Time Type Type Clinicians Facility Department ID 2020-08-21 Inpatient Sh[facility]y [facility] [id number] Univers 01:07:00 KELLY cantu [facility] 2021-08-22 2021-08-22 Emergency [facility] [id number] Univers 06:21:00 08:02:00 SWEETIE cantu [facility] 2021-08-22 2021-08-22 [facility] [id number] Univers 06:21:00 08:02:00 Sweetie OREN [id number] [address] [id number] [id number] [facility] 084 Branch 2021-08-09 2021-08-09 Outpatient [facility] [id number] [facility] 10:27:03 10:27:03 ADRIANA lopez of Medicin e 2020-12-28 2020-12-28 Telephone [facility]ly [facility] [id number] 00:00:00 00:00:00 Calvin H PRIMARY [id number] CARE [id number] PAVILLION [id number] 220 2020-12-28 2020-12-28 Telephone Formerly [facility] [id number] Univers 00:00:00 00:00:00 Calvin H PRIMARY [id number] it y of CARE [id number] [place] [facility] [id number] Ak dical 220 Branch 2020-12-19 2020-12-19 Transition Tuan Peters [id number] 00:00:00 00:00:00 of Care Ruchi Bras[place] [id number] [place] [id number] [id number] 2020-12-19 2020-12-19 Transition Tuan Peters 1.2.840.114 [id number] Univers 00:00:00 00:00:00 of Care Ruchi [place] [id number] it y of [place] 4.2.7.2.686 [place] [id number] [facility] 403 Branch 2020-12-11 2020-12-17 [facility] Paco Lacey 1.2.840.1 [id number] 05:11:00 16:00:00 Encounter Rene Harrison Monique [id number] [facility] [id number] [id number] [facility] 2020-12-11 2020-12-17 [facility] Ayleen 1.2.840.1 [id number] [facility] 05:11:00 16:00:00 Encounter Rene Harrisony [id number] ity of [facility] 4.2.7.2.686 [place] [id number] [facility] 096 [place] 2020-12-11 2020-12-11 Emergency [facility] [id number] Univers 05:11:00 05:11:00 [facility] 2020-11-16 2020-11-16 Emergency X [facility] ERT [id number] Univers 09:31:00 09:31:00 [facility] 2020-11-11 2020-11-11 Orders Doctor CUI 1.2.840.114 [id number] 00:00:00 00:00:00 Only Unassigned, MONIQUE [id number] [place] [facility] 4.2.7.2.686 [id number] 2020-11-11 2020-11-11 Orders Doctor CUI 1.2.840.114 [id number] Univers 00:00:00 00:00:00 Only Unassigned, MONIQUE [id number] ity of [place] [facility] 4.2.7.2.686 Jeff as [id number] [facility] 009 [place] 2020-11-07 2020-11-07 Telephone Wilder [facility] [id number] 00:00:00 00:00:00 [facility] [id number] [place] 4.2.7.2.686 Professio [id number] [address] 2020-11-07 2020-11-07 Telephone Wilder [facility] [id number] [facility] 00:00:00 00:00:00 Sendil Danitza Tobin [id number] ity of [place] 4.2.7.2.686 [place] Profess[place] [id number] [address] 2020-10-30 2020-10-30 Orders Doctor BASILIA 1.2.840.114 [id number] 00:00:00 00:00:00 Only Unassigned, MONIQUE [id number] [place] 4.2.7.2.686 [id number] [facility] 2020-10-30 2020-10-30 Orders Doctor CUI 1.2.840.114 [id number] Univers 00:00:00 00:00:00 Only Unassigned, MONIQUE [id number] ity of [place] [facility] 4.2.7.2.686 Jeff as [id number] [address] 2020-09-26 2020-09-26 Telephone [facility] 1.2.840.114 [id number] 00:00:00 00:00:00 [facility] [id number] CLINICS 4.2.7.2.686 [id number] [facility] 2020-09-26 2020-09-26 Telephone [facility] 1.2.840.114 [id number] [facility] 00:00:00 00:00:00 [facility] [id number] i ty of CLINICS 4.2.7.2.686 [place] [id number] [address] 2020-09-01 2020-09-01 Orders Doctor CUI 1.2.840.114 [id number] 00:00:00 00:00:00 Only Unassigned, MONIQUE 350.1.13.10 [facility] 4.2.7.2.686 [id number] [facility] 2020-09-01 2020-09-01 Orders Doctor BASILIA 1.2.840.114 [id number] Univers 00:00:00 00:00:00 Only Unassigned, MONIQUE 350.1.13.10 ity of [place] [facility] 4.2.7.2.686 Jeff as [id number] [facility] 009 Branch 2020-08-25 2020-08-25 Transition Tuan Peters 1.2.840.114 [id number] 00:00:00 00:00:00 of Care Ruchi Garciay [id number] [place] 4.2.7.2.686 [id number] [facility] 2020-08-25 2020-08-25 Transition Tuan Peters 1.2.840.114 [id number] [facility] 00:00:00 00:00:00 of Care Ruchi Garciay [id number] it y of [place]2.7.[place] [id number] [address] 2020-08-21 2020-08-23 [facility] Ayleen 1.2.840.114 [id number] 01:07:00 18:35:00 Encounter Kelly Amaya [id number] [facility] 4.2.7.2.686 [id number] [facility] 2020-08-21 2020-08-23 [place] 1. 2.840.114 [id number] [facility] 01:07:00 18:35:00 Encounter Mukul Gallardo Monique 350.1.13. 10 ity [facility] 4.2.7.2.686 Jeff as [phone] [address] Results Test Description Test Time Test Comments Results Result Comments Source POCT GLUCOSE (AUTOMATED) 2020-12-17 15:43:35 Test Item Value Reference Range Interpretation Comme nts POCT GLU (test code = 9959232877) 129 mg/dL 70-110 H Lab Interpretation (test code = 88880-1) Abnormal [facility] METABOLIC PANEL (NA, K, CL, CO2, GLUCOSE, BUN, CREATININE, CA)2020-12-17 11:45:07 Test Item Value Reference Range Interpretation Comments NA (test code = 137 mmol/L 135-145 9750015260) K (test code = 3.5 mmol/L 3.5-5.0 3388452618) CL (test code = 103 mmol/L 98-108 7214490902) CO2 TOTAL (test code = 26 mmol/L 23-31 7863665458) AGAP (test code = 2-16 9306182065) BUN (test code = 11 mg/dL 7-23 8554040678) GLUCOSE (test code = 175 mg/dL 70-110 H 0564642558) CREATININE (test code = 0.62 mg/dL 0.60-1.25 4996103374) CALCIUM (test code = 9.0 mg/dL 8.6-10.6 8634611247) eGFR Calculation mL/min/1.73m2 (Non-) (test code = 0959796805) eGFR Calculation mL/min/1.73m2 () (test code = 7270516387) JAMES (test code = JAMES) Association of [...] tests). Lab Interpretation Abnormal (test code = 32446-8) [facility] WITH [id number] 11:07:27 Test Item Value Reference Range Interpretation [...] RDW-SD (test code = 45.2 fL 38.5-51.6 13214-8) RDW-CV (test code = 16.9 % 12.1-15.4 H 788-0) PLT (test code = See_Comment H [Automated 777-3) message] The sy stem which generated this result transmitted reference range : 150 - 328 10*3/ ?L. The reference r torito was not used to interpret this result as normal/abnormal . MPV (test code = 8.1 fL 9.8-13.0 L 97559-5) NRBC/100 WBC (test See_Comment [Automat ed code = 5790574069) message] The system which generated this result transmitted reference range : 0.0 - 10.0 /100 WBCs. The refer ence range was not u sed to interpret th is result as normal/abnormal . NRBC x10^3 (test code <0.01 See_Comment [Auto mated = 3482525106) message] The s [employer] which generated this result transmitted reference range : 10*3/?L. The reference range was not used to interpret this result as normal/abnormal . GRAN MAT (NEUT) % 72.8 % (test code = 770-8) IMM GRAN % (test code 0.60 % = 7305997644) LYMPH % (test code = 18.4 % 736-9) MONO % (test code = 5.7 % 5905-5) EOS % (test code = 1.8 % 713-8) BASO % (test code = 0.7 % 706-2) GRAN MAT x10^3(ANC) 8.23 10*3/uL 1.99-6.95 H (test code = 8986647849) IMM GRAN x10^3 (test 0.07 10*3/uL 0.00-0.06 H code = 9549051184) LYMPH x10^3 (test code 2.08 10*3/uL 1.09-3.23 = 731-0) MONO x10^3 (test code 0.65 10*3/uL 0.36-1.02 = 742-7) EOS x10^3 (test code = 0.20 10*3/uL 0.06-0.53 711-2) BASO x10^3 (test code 0.08 10*3/uL 0.01-0.09 = 704-7) Lab Interpretation Abnormal (test code = 25967-6) [facility] 06:03:38 Test Item Value Reference Range Interpretation Comments POCT GLU (test code = 3432840197) 75 mg/dL 70-110 Lab Interpretation (test code = Normal 74061-7) [facility], [id number] 00:01:00 Test Item Value Reference Range Interpretation Comments VIT B6 (test code = 13.1 nmol/L 20.0-125.0 L INTERPRE TIVE 10348-3) INFORMATION: Vi tamin B6 (Pyridoxal 5-Phosphate) Pyridoxal 5'-phosphate me asured in a specimen collected follo wing an 8-hour or overnight fast accurately clara cates vitamin B6 nutritional sta tus. Non-fasting spe cimen concentration reflects recent vitamin intake. This test was develo ped and its perform ance characteristics determined by [facility]. I t has not been cleare d or approved by the [place] Food and Drug Administration. This test was perfor med in a CLIA certifie d laboratory and is intended for cl inical purposes.Perfor med By: [email or web address] [place] [address] [id number] Director: Namrata Klein MD Lab Interpretation Abnormal (test code = 60761-3) [facility] TIBIA FIBULA 2 VW [id number] 23:57:09 Tricompartmental knee joint osteoarthrosis.XR TIBIA FIBULA [...] No acute fracture or dislocation.IMPRESSIONTricompartmental knee joint osteoarthrosis.[facility] GLUCOSE (AUTOMATED) 2020-12-16 23:27:00 Test Item Value Reference Range Interpretation Comments POCT GLU (test code = 0954331089) 114 mg/dL 70-110 H Lab Interpretation (test code = Abnormal 79953-1) [facility] GLUCOSE (AUTOMATED)2020-12-16 20:12:00 Test Item Value Reference Range Interpretation Comments POCT GLU (test code = 9530718757) 105 mg/dL 70-110 Lab Interpretation (test code = Normal 63291-1) [facility] GLUCOSE (AUTOMATED)2020-12-16 14:44:00 Test Item Value Reference Range Interpretation Comments POCT GLU (test code = 4330640268) 153 mg/dL 70-110 H Lab Interpretation (test code = Abnormal 06519-0) [facility] (NA, K, CL, CO2, GLUCOSE, BUN, CREATININE, CA)2020-12-16 14:23:00 Test Item Value Reference Range Interpretation Comments NA (test code = 138 mmol/L 135-145 8847056641) K (test code = 3.4 mmol/L 3.5-5.0 L 8082970634) CL (test code = 100 mmol/L 98-108 7730235795) CO2 TOTAL (test code = 31 mmol/L 23-31 8279151489) AGAP (test code = 2-16 0004940802) BUN (test code = 11 mg/dL 7-23 6748490930) GLUCOSE (test code = 162 mg/dL 70-110 H 0448205003) CREATININE (test code = 0.64 mg/dL 0.60-1.25 1534166581) CALCIUM (test code = 8.9 mg/dL 8.6-10.6 5152822558) eGFR Calculation mL/min/1.73m2 (Non-) (test code = 5132246979) eGFR Calculation mL/min/1.73m2 () (test code = 7630581422) JAMES (test code = JAMES) Association of [...] tests). Lab Interpretation Abnormal (test code = 86702-3) [facility] WITH [id number] 14:05:00 Test Item Value Reference Range Interpretation [...] RDW-SD (test code = 45.4 fL 38.5-51.6 70916-0) RDW-CV (test code = 17.0 % 12.1-15.4 H 788-0) PLT (test code = See_Comment H [Automated 777-3) message] The sy stem which generated this result transmitted reference range : 150 - 328 10*3/ ?L. The reference r torito was not used to interpret this result as normal/abnormal . MPV (test code = 8.0 fL 9.8-13.0 L 30355-3) NRBC/100 WBC (test See_Comment [Automat ed code = 1694650508) message] The system which generated this result transmitted reference range : 0.0 - 10.0 /100 WBCs. The refer ence range was not u sed to interpret th is result as normal/abnormal . NRBC x10^3 (test code <0.01 See_Comment [Auto mated = 0628583255) message] The s ystem which generated this result transmitted reference range : 10*3/?L. The reference range was not used to interpret this result as normal/abnormal . GRAN MAT (NEUT) % 70.0 % (test code = 770-8) IMM GRAN % (test code 0.70 % = 6906482430) LYMPH % (test code = 20.5 % 736-9) MONO % (test code = 7.1 % 5905-5) EOS % (test code = 1.0 % 713-8) BASO % (test code = 0.7 % 706-2) GRAN MAT x10^3(ANC) 9.44 10*3/uL 1.99-6.95 H (test code = 7955829050) IMM GRAN x10^3 (test 0.09 10*3/uL 0.00-0.06 H code = 5504889646) LYMPH x10^3 (test code 2.76 10*3/uL 1.09-3.23 = 731-0) MONO x10^3 (test code 0.96 10*3/uL 0.36-1.02 = 742-7) EOS x10^3 (test code = 0.13 10*3/uL 0.06-0.53 711-2) BASO x10^3 (test code 0.10 10*3/uL 0.01-0.09 H = 704-7) Lab Interpretation Abnormal (test code = 10803-4) [facility] CenterBlood [facility] - Per[facility] # [id number] 13:01:00 Test Item Value Reference Range Interpretation Comments Blood Culture-Aerobic No organisms No growth Previo us (test code = 25407-8) isolated prelim inary verified result was Culture In Progress on 12/11/2020 at 100 1 CSTPrevious preliminary verified result was No growth a t 24 hours on 12/12/2020 at 070 1 CSTPrevious preliminary verified result was No growth a t 48 hours on 12/13/2020 at 070 1 CSTPrevious preliminary verified result was No growth a t 72 hours on 12/14/2020 at 070 1 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 Blood No organisms No growth Previous Culture-Anaerobic isolated preliminar y (test code = 33759-2) verifi ed result was Culture In Progress on 12/11/2020 at 100 1 CSTPrevious preliminary verified result was No growth a t 24 hours on 12/12/2020 at 070 1 CSTPrevious preliminary verified result was No growth a t 48 hours on 12/13/2020 at 070 1 CSTPrevious preliminary verified result was No growth a t 72 hours on 12/14/2020 at 070 1 BODY SHOP ESTIMATOR Lab Interpretation Normal (test code = 33324-5) [facility] Culture - Peripheral # [id number] 13:01:00 Test Item Value Reference Range Interpretation Comments Blood Culture-Aerobic No organisms No growth Previo us (test code = 57989-2) isolated prelim inary verified result was Culture In Progress on 12/11/2020 at 100 1 CSTPrevious preliminary verified result was No growth a t 24 hours on 12/12/2020 at 070 1 CSTPrevious preliminary verified result was No growth a t 48 hours on 12/13/2020 at 070 1 CSTPrevious preliminary verified result was No growth a t 72 hours on 12/14/2020 at 070 1 BODY SHOP ESTIMATOR Blood No organisms No growth Previous Culture-Anaerobic isolated preliminar y (test code = 66387-3) verifi ed result was Culture In Progress on 12/11/2020 at 100 1 CSTPrevious preliminary verified result was No growth a t 24 hours on 12/12/2020 at 070 1 CSTPrevious preliminary verified result was No growth a t 48 hours on 12/13/2020 at 070 1 CSTPrevious preliminary verified result was No growth a t 72 hours on 12/14/2020 at 070 1 BODY SHOP ESTIMATOR Lab Interpretation Normal (test code = 95579-6) [facility] GLUCOSE (AUTOMATED)2020-12-16 04:01:00 Test Item Value Reference Range Interpretation Comments POCT GLU (test code = 8148381374) 156 mg/dL 70-110 H Lab Interpretation (test code = Abnormal 99774-0) [facility] GLUCOSE (AUTOMATED)2020-12-16 00:24:00 Test Item Value Reference Range Interpretation Comments POCT GLU (test code = 6237592978) 115 mg/dL 70-110 H Lab Interpretation (test code = Abnormal 95517-3) [facility] CHEST PULMONARY [id number] 23:34:55No pulmonary emboli. No interval change in [...] of intra and extrahepatic biliary du ctal dilatation.[facility] GLUCOSE (AUTOMATED) 2020-12-15 19:28:00 Test Item Value Reference Range Interpretation Comments POCT GLU (test code = 1193971992) 140 mg/dL 70-110 H Lab Interpretation (test code = Abnormal 24618-2) [facility] 15:26:00 Test Item Value Reference Range Interpretation Comments MAGNESIUM (test code = 6238779445) 2.2 mg/dL 1.7-2.4 Lab Interpretation (test code = Normal 49016-0) [facility]2020-12-15 15:15:00 Test Item Value Reference Range Interpretation Comments POCT GLU (test code = 1952808337) 181 mg/dL 70-110 H Lab Interpretation (test code = Abnormal 14602-3) [facility] (NA, K, CL, CO2, GLUCOSE, BUN, CREATININE, CA)2020-12-15 13:07:00 Test Item Value Reference Range Interpretation Comments NA (test code = 136 mmol/L 135-145 8561094176) K (test code = 3.6 mmol/L 3.5-5.0 2307501161) CL (test code = 96 mmol/L 98-108 L 4229179193) CO2 TOTAL (test code = 29 mmol/L 23-31 5140597965) AGAP (test code = 2-16 5031689526) BUN (test code = 12 mg/dL 7-23 0022409073) GLUCOSE (test code = 183 mg/dL 70-110 H 6030482963) CREATININE (test code = 0.70 mg/dL 0.60-1.25 3775516966) CALCIUM (test code = 9.2 mg/dL 8.6-10.6 8802256606) eGFR Calculation mL/min/1.73m2 (Non-) (test code = 9963092978) eGFR Calculation mL/min/1.73m2 () (test code = 6317813066) JAMES (test code = JAMES) Association of [...] tests). Lab Interpretation Abnormal (test code = 57751-0) [facility] WITH [id number] 12:32:00 Test Item Value Reference Range Interpretation Comments WBC (test code = See_Comment H [Automated 2799-2) message] The system which generated this result transmit ronan reference range : 4.20 - 10.70 10*3/?L. The reference range was not used to interpret this result as normal/abnormal . RBC (test code = See_Comment H [Automated 919-8) message] The system which generated this result [...] RDW-SD (test code = 44.4 fL 38.5-51.6 31383-0) RDW-CV (test code = 17.7 % 12.1-15.4 H 788-0) PLT (test code = See_Comment H [Automated 777-3) message] The system which generated this result transmit ronan reference range : 150 - 328 10*3/ ?L. The reference range was not u sed to interpret th is result as normal/abnormal . MPV (test code = 8.1 fL 9.8-13.0 L 75911-6) NRBC/100 WBC (test See_Comment [Automat ed code = 7648690113) message] The system which generated this result transmit ronan reference range : 0.0 - 10.0 /100 WBCs. The reference range was not used to interpret this result as normal/abnormal . NRBC x10^3 (test code <0.01 See_Comment [Auto mated = 1168669325) message] The system which generated this result transmit ronan reference range : 10*3/?L. The reference range was not used to interpret this result as normal/abnormal . GRAN MAT (NEUT) % 74.5 % (test code = 770-8) IMM GRAN % (test code 0.70 % = 8903277279) LYMPH % (test code = 17.4 % 736-9) MONO % (test code = 6.8 % 5905-5) EOS % (test code = 0.2 % 713-8) BASO % (test code = 0.4 % 706-2) GRAN MAT x10^3(ANC) 11.99 10*3/uL 1.99-6.95 H (test code = 6730303579) IMM GRAN x10^3 (test 0.11 10*3/uL 0.00-0.06 H code = 6688524419) LYMPH x10^3 (test code 2.80 10*3/uL 1.09-3.23 = 731-0) MONO x10^3 (test code 1.10 10*3/uL 0.36-1.02 H = 742-7) EOS x10^3 (test code = 0.03 10*3/uL 0.06-0.53 L 711-2) BASO x10^3 (test code 0.06 10*3/uL 0.01-0.09 = 704-7) Lab Interpretation Abnormal (test code = 34958-2) [facility] GLUCOSE (AUTOMATED)2020-12-15 04:16:00 Test Item Value Reference Range Interpretation Comments POCT GLU (test code = 2710837321) 200 mg/dL 70-110 H Lab Interpretation (test code = Abnormal 38061-3) [facility]IT[facility] (THIAMINE), WHOLE [id number] 00:30:00 Test Item Value Reference Range Interpretation Comments Vitamin B1, Whole 136 nmol/L 70-180 INTERPRETI VE INFORMATION: Blood (test code = Vitamin B 1, Whole Blood 50739-0) This assay júnior ures the concentration o f thiamine diphosphate (TD P), the primary active form of vitamin B1. Nick roximately 90 percent of v itamin B1 present in whol e blood is TDP. Thiamine a nd thiamine monoph osphate, which comprise the remaining 10 pe rcent, are not measured. T his test was developed a nd its performance characteristics determined by [facility]. I t has not been cleared or approved by the [place] Food and Drug Administration. This test was performed i n a CLIA certified labor atory and is intended for clinical purposes.Perfor med By: DEE Perdomoi es[address] [place] [address] [id number] aboratory Director: Namrata Klein MD [facility] GLUCOSE (AUTOMATED)2020-12-14 23:35:00 Test Item Value Reference Range Interpretation Comments POCT GLU (test code = 9256579221) 151 mg/dL 70-110 H Lab Interpretation (test code = Abnormal 38817-7) [facility] GLUCOSE (AUTOMATED)2020-12-14 19:19:00 Test Item Value Reference Range Interpretation Comments POCT GLU (test code = 8942356181) 193 mg/dL 70-110 H Lab Interpretation (test code = Abnormal 69671-3) [facility] GLUCOSE (AUTOMATED)2020-12-14 15:22:00 Test Item Value Reference Range Interpretation Comments POCT GLU (test code = 1698816127) 221 mg/dL 70-110 H Lab Interpretation (test code = Abnormal 91210-8) [facility] GLUCOSE (AUTOMATED)2020-12-14 02:37:00 Test Item Value Reference Range Interpretation Comments POCT GLU (test code = 3747757908) 210 mg/dL 70-110 H Lab Interpretation (test code = Abnormal 39366-3) [facility] GLUCOSE (AUTOMATED)2020-12-13 23:33:00 Test Item Value Reference Range Interpretation Comments POCT GLU (test code = 6789885705) 182 mg/dL 70-110 H Lab Interpretation (test code = Abnormal 03520-1) [facility] GLUCOSE (AUTOMATED)2020-12-13 18:09:00 Test Item Value Reference Range Interpretation Comments POCT GLU (test code = 1103674527) 150 mg/dL 70-110 H Lab Interpretation (test code = Abnormal 41919-4) [facility] METABOLIC PANEL (NA, K, CL, CO2, GLUCOSE, BUN, CREATININE, CA)2020-12-13 16:27:00 Test Item Value Reference Range Interpretation Comments NA (test code = 136 mmol/L 135-145 0240366544) K (test code = 3.7 mmol/L 3.5-5.0 5198324223) CL (test code = 96 mmol/L 98-108 L 2346950602) CO2 TOTAL (test code = 29 mmol/L 23-31 3567137128) AGAP (test code = 2-16 6659961116) BUN (test code = 6 mg/dL 7-23 L 0686080869) GLUCOSE (test code = 212 mg/dL 70-110 H 8056849409) CREATININE (test code = 0.61 mg/dL 0.60-1.25 2811671721) CALCIUM (test code = 9.5 mg/dL 8.6-10.6 0886145515) eGFR Calculation mL/min/1.73m2 (Non-) (test code = 0418699717) eGFR Calculation mL/min/1.73m2 () (test code = 4828362029) JAMES (test code = JAMES) Association of [...] tests). Lab Interpretation Abnormal (test code = 71391-9) [facility] WITH [id number] 16:10:00 Test Item Value Reference Range Interpretation Comments WBC (test code = See_Comment H [Automated 0136-2) message] The sy stem which generated this result transmitted reference range : 4.20 - 10.70 10*3/?L. The reference range was not used to interpret this result as normal/abnormal . RBC (test code = See_Comment H [Automated 449-8) message] The sy stem which generated this [...] RDW-SD (test code = 43.3 fL 38.5-51.6 38076-3) RDW-CV (test code = 16.2 % 12.1-15.4 H 788-0) PLT (test code = See_Comment H [Automated 777-3) message] The sy stem which generated this result transmitted reference range : 150 - 328 10*3/ ?L. The reference r torito was not used to interpret this result as normal/abnormal . MPV (test code = 8.2 fL 9.8-13.0 L 33913-5) NRBC/100 WBC (test See_Comment [Automat ed code = 3357739474) message] The system which generated this result transmitted reference range : 0.0 - 10.0 /100 WBCs. The refer ence range was not u sed to interpret th is result as normal/abnormal . NRBC x10^3 (test code <0.01 See_Comment [Auto mated = 1721869474) message] The s ystem which generated this result transmitted reference range : 10*3/?L. The reference range was not used to interpret this result as normal/abnormal . GRAN MAT (NEUT) % 86.2 % (test code = 770-8) IMM GRAN % (test code 0.70 % = 7945920155) LYMPH % (test code = 10.2 % 736-9) MONO % (test code = 2.5 % 5905-5) EOS % (test code = 0.1 % 713-8) BASO % (test code = 0.3 % 706-2) GRAN MAT x10^3(ANC) 9.61 10*3/uL 1.99-6.95 H (test code = 5483090322) IMM GRAN x10^3 (test 0.08 10*3/uL 0.00-0.06 H code = 7443869741) LYMPH x10^3 (test code 1.14 10*3/uL 1.09-3.23 = 731-0) MONO x10^3 (test code 0.28 10*3/uL 0.36-1.02 L = 742-7) EOS x10^3 (test code = <0.03 0.06-0.53 L 711-2) BASO x10^3 (test code 0.03 10*3/uL 0.01-0.09 = 704-7) Lab Interpretation Abnormal (test code = 68389-4) [facility]2020-12[facility]13 14:16:00 Test Item Value Reference Range Interpretation Comments POCT GLU (test code = 2890718224) 236 mg/dL 70-110 H Lab Interpretation (test code = Abnormal 84974-2) [facility] CenterLAB ONLY COVID [id number] 04:58:00COVID DMT InterpretationInterpretation/Recommendations: Molecular NAAT Tests for [...] [facility] LABORAT[facility] SERVICESCOVID Resu [id number] Rapid ID NOW (no units) ? ? Date ? Value ? 12/11/2020 ? Not Detected ? ? ? 11/16/2020 ? Not Detected ? ? ? 08/21/2020 ?Not Detected ? [facility] 2020-12-13 03:11:00 Test Item Value Reference Range Interpretation Comments POCT GLU (test code = 5321488716) 171 mg/dL 70-110 H Lab Interpretation (test code = Abnormal 31123-0) [facility] GLUCOSE (AUTOMATED)2020-12-13 00:00:00 Test Item Value Reference Range Interpretation Comments POCT GLU (test code = 0920478271) 118 mg/dL 70-110 H Lab Interpretation (test code = Abnormal 03834-5) [facility] GLUCOSE (AUTOMATED)2020-12-12 20:29:00 Test Item Value Reference Range Interpretation Comments POCT GLU (test code = 1683929057) 173 mg/dL 70-110 H Lab Interpretation (test code = Abnormal 42772-9) [facility] CenterUS ABDOMEN [id number] 19:56:17 1. ?Hepatic steatosis. However, limited evaluation [...] main portal veinwasevaluated with color Doppler imaging. Office Rep images were obtainedfor the record. COMPARISON: Ultrasound [...] normal where visualized. SPLEEN:No images were obtained. Vtmb, Radiant Results Inft User - 12/12/2020 1:57 PM CSTEXAM: US ABDOMEN LIMITEDHISTORY: 70 years-old male with RUQ ultrasound to assess for common bileduct dilation .TECHNIQUE: Limited abdominal ultrasound focused on the liver, biliarysystem, pancreas, and spleen was performed. The main portal vein wasevaluated with color Doppler imaging. Office Rep images were obtainedfor the record.COMPARISON: Ultrasound abdomen [...] this study and agree with the abovereport. [facility]2020-12-12 19:24:00 Test Item Value Reference Range Interpretation Comments POCT GLU (test code = 4195178677) 230 mg/dL 70-110 H Lab Interpretation (test code = Abnormal 51049-9) [facility]XR CHEST 1 [id number] 15:16:46 Low lung volumes with mild perihilar [...] have reviewed thisstudy and agree with theabove report.[facility]2020-12-12 14:34:00 Test Item Value Reference Range Interpretation Comments POCT GLU (test code = 5100507814) 225 mg/dL 70-110 H Lab Interpretation (test code = Abnormal 61675-7) [facility] CenterURINE [id number] 13:28:00 Test Item Value Reference Range Interpretation Comments URINE CULTURE (test < 10,000 CFU/mL mixed code = 630-4) aerobic organisms - suggests endogenous microbial contamination [facility] (NA, K, CL, CO2, GLUCOSE, BUN, CREATININE, CA)2020-12-12 10:05:00 Test Item Value Reference Range Interpretation Comments NA (test code = 136 mmol/L 135-145 4070249285) K (test code = 3.5 mmol/L 3.5-5.0 9827072969) CL (test code = 100 mmol/L 98-108 7275354002) CO2 TOTAL (test code = 31 mmol/L 23-31 4649450390) AGAP (test code = 2-16 2402227301) BUN (test code = 7 mg/dL 7-23 1849293961) GLUCOSE (test code = 259 mg/dL 70-110 H 6869056675) CREATININE (test code = 0.63 mg/dL 0.60-1.25 0562153349) CALCIUM (test code = 8.5 mg/dL 8.6-10.6 L 8601686919) eGFR Calculation mL/min/1.73m2 (Non-) (test code = 4010643295) eGFR Calculation mL/min/1.73m2 () (test code = 4833695858) JAMES (test code = JAMES) Association of [...] tests). Lab Interpretation Abnormal (test code = 68750-3) [facility] CenterMagnesium [id number] 10:05:00 Test Item Value Reference Range Interpretation Comments MAGNESIUM (test code = 7274640053) 1.9 mg/dL 1.7-2.4 Lab Interpretation (test code = Normal 10733-7) [facility] with [id number] 09:48:00 Test Item Value Reference Range Interpretation Comments WBC (test code = See_Comment [Automated 5953-2) message] The sy stem which generated this result transmitted reference range : 4.20 - 10.70 10*3/?L. The reference range was not used to interpret this result as normal/abnormal . RBC (test code = See_Comment [Automated 312-8) message] The sy stem which generated this [...] RDW-SD (test code = 46.0 fL 38.5-51.6 57752-6) RDW-CV (test code = 16.1 % 12.1-15.4 H 788-0) PLT (test code = See_Comment H [Automated 777-3) message] The sy stem which generated this result transmitted reference range : 150 - 328 10*3/ ?L. The reference r torito was not used to interpret this result as normal/abnormal . MPV (test code = 8.6 fL 9.8-13.0 L 59360-9) NRBC/100 WBC (test See_Comment [Automat ed code = 0476281604) message] The system which generated this result transmitted reference range : 0.0 - 10.0 /100 WBCs. The refer ence range was not u sed to interpret th is result as normal/abnormal . NRBC x10^3 (test code <0.01 See_Comment [Auto mated = 4833786445) message] The s ystem which generated this result transmitted reference range : 10*3/?L. The reference range was not used to interpret this result as normal/abnormal . GRAN MAT (NEUT) % 70.2 % (test code = 770-8) IMM GRAN % (test code 0.30 % = 4969818329) LYMPH % (test code = 18.8 % 736-9) MONO % (test code = 5.0 % 5905-5) EOS % (test code = 5.2 % 713-8) BASO % (test code = 0.5 % 706-2) GRAN MAT x10^3(ANC) 6.05 10*3/uL 1.99-6.95 (test code = 0899502408) IMM GRAN x10^3 (test 0.03 10*3/uL 0.00-0.06 code = 5031162189) LYMPH x10^3 (test code 1.62 10*3/uL 1.09-3.23 = 731-0) MONO x10^3 (test code 0.43 10*3/uL 0.36-1.02 = 742-7) EOS x10^3 (test code = 0.45 10*3/uL 0.06-0.53 711-2) BASO x10^3 (test code 0.04 10*3/uL 0.01-0.09 = 704-7) Lab Interpretation Abnormal (test code = 09122-5) [facility] GLUCOSE (AUTOMATED)2020-12-12 03:42:00 Test Item Value Reference Range Interpretation Comments POCT GLU (test code = 196 mg/dL 70-110 H Notifi ed Provider 9877836314) Lab Interpretation (test Abnormal code = 68738-0) [facility] CenterFOLATE2021-[facility] 02:24:00 Test Item Value Reference Range Interpretation Comments FOLATE SER (test code = 0571600277) 5.8 ng/mL 3.0-20.0 Lab Interpretation (test code = Normal 37064-9) [facility] CenterVITAMIN B12, [id number] 00:55:00 Test Item Value Reference Range Interpretation Comments VIT B12 (test code = 844 pg/mL 240-930 6542810947) JAMES (test code = JAMES) Biotin has been reported to cause a positive bias, interpret results relative to patient's use of biotin. Lab Interpretation (test Normal code = 89063-9) [facility] GLUCOSE (AUTOMATED)2020-12-12 00:14:00 Test Item Value Reference Range Interpretation Comments POCT GLU (test code = 7574938838) 164 mg/dL 70-110 H Lab Interpretation (test code = Abnormal 03763-3) [facility] CenterCREATINE [id number] 23:42:00 Test Item Value Reference Range Interpretation Comments CK (test code = [id number]) <20 33-194 L Lab Interpretation (test code = Abnormal 53766-9) [facility]THY[facility] STIMULATING [id number] 23:17:00 Test Item Value Reference Range Interpretation Comments TSH (test code = See_Comment Biotin has been [id number]) reported to cau se a negative bias, interpret resul ts relative to pat ient's use of biotin. [Automated mess age] The system [employer] generated this result transmitted ref erence range: 0.45 - 4 .70 mIU/L. The refe rence range was not u sed to interpret this result as normal/abnor mal. Lab Interpretation (test Normal code = 02732-5) [facility] CenterXR HIPS 3 VW [id number] 21:41:53No appreciable fracture lines. RL: 6200 ICAL [...] No osseous erosions.IMPRESSIONNo appreciable fracture lines.RL: 6200 [facility] CenterPROCALCITONIN2021-03-01 20:00:00 Test Item Value Reference Range Interpretation Comments Procalcitonin (test 0.13 ng/mL <0.07 H code = 1803935588) JAMES (test code = JAMES) INTERPRETATION OF [...] lung abscess/empyema. For further information please refer to:[email or web address] Lab Interpretation Abnormal (test code = 45974-7) [facility]PO[facility]AUT[facility]ATED)2020-12-11 19:07:00 Test Item Value Reference Range Interpretation Comments POCT GLU (test code = 8639132004) 274 mg/dL 70-110 H Lab Interpretation (test code = Abnormal 06110-6) [facility] CenterMAGNESIUM2021-03-01 18:31:00 Test Item Value Reference Range Interpretation Comments MAGNESIUM (test code = 2880086458) 1.9 mg/dL 1.7-2.4 Lab Interpretation (test code = Normal 17251-9) [facility] CenterFERRITIN [id number] 18:31:00 Test Item Value Reference Range Interpretation Comments FERRITIN (test code = 178.0 ng/mL 18.0-464.0 9943180849) JAMES (test code = JAMES) Biotin has been reported to cause a negative bias, interpret results relative to patient's use of biotin. Lab Interpretation (test Normal code = 87524-0) [facility] CenterCT HEAD WO [id number] 14:36:47 No acute intracranial abnormality. Dilated ventricles [...] setting.Preliminary Report Dictated by Resident: Roxane Jiang, Katelny Martin MD., have reviewed this study and agree with the abovereport.[facility] CenterURINALYSIS2021-03-01 14:28:00 Test Item Value Reference Range Interpretation Comments APPEARANCE (test code = Clear Clear 9663946012) COLOR (test code = Yellow Yellow 2562914545) PH (test code = 4.8-8.0 2418608026) SP GRAVITY (test code = 1.003-1.030 0838413454) GLU U QUAL (test code = 500 mg/dL Normal A 7225076653) BLOOD (test code = Negative Negative 5604735042) KETONES (test code = 5 mg/dL Negative A 8704285533) PROTEIN (test code = Negative Negative 2887-8) UROBILIN (test code = Normal Normal 8087639477) BILIRUBIN (test code = Negative Negative 8631392287) NITRITE (test code = Negative Negative 2746098966) LEUK RYAN (test code = Negative Negative 1852081665) RBC/HPF (test code = See_Comment [Autom ated message] 4428135300) The system [employer] generated this result transmit ronan reference range : 0 - 3 HPF. The refe rence range was not u sed to interpret th is result as normal/abnormal . WBC/HPF (test code = See_Comment [Autom ated message] 7512937206) The system [employer] generated this result transmit ronan reference range : 0 - 5 HPF. The refe rence range was not u sed to interpret th is result as normal/abnormal . BACTERIA (test code = Negative Negative 0138004309) MUCOUS (test code = Slight Negative LPF A 2334001403) SQ EPITH (test code = HPF 0677354975) Lab Interpretation (test Abnormal code = 93581-9) [facility] CenterCOVID-19 (ID NOW RAPID TESTING)2020-12-11 13:10:00 Test Item Value Reference Range Interpretation Comments SARS-CoV-2 Rapid ID NOW Not Detected Not Detected (test code = 79996-6) JAMES (test code = JAMES) ID NOW COVID-19 Assay is an isothermal nucleic acid amplification test intended for the qualitative detection of nucleic acid from SARS-CoV-2 viral RNA in nasopharyngeal ([employer]ULT [employer]CHO[employer] COUNSELOR) specimens. It is used under Emergency Use [...] indicated. Lab Interpretation Normal (test code = 78379-9) [facility]. METABOLIC PANEL (24076)2020-12-11 12:29:00 Test Item Value Reference Range Interpretation Comments NA (test code = 136 mmol/L 135-145 2508992805) K (test code = 3.5 mmol/L 3.5-5.0 8787444982) CL (test code = 95 mmol/L 98-108 L 0853421186) CO2 TOTAL (test code = 35 mmol/L 23-31 H 4143392903) AGAP (test code = 2-16 2923918836) BUN (test code = 9 mg/dL 7-23 8727197161) GLUCOSE (test code = 329 mg/dL 70-110 H 0967289369) CREATININE (test code = 0.72 mg/dL 0.60-1.25 5675318942) TOTAL BILI (test code = 0.6 mg/dL 0.1-1.9 4860957617) CALCIUM (test code = 9.0 mg/dL 8.6-10.6 1722795670) T PROTEIN (test code = 6.8 g/dL 6.3-8.2 6276910080) ALBUMIN (test code = 3.8 g/dL 3.5-5.0 2521368445) ALK PHOS (test code = 288 U/L 34-122 H 3451732392) ALTv (test code = 46 U/L 5-50 2-6) AST(SGOT) (test code = 38 U/L 13-40 4929832289) eGFR Calculation mL/min/1.73m2 (Non-) (test code = 9454553531) eGFR Calculation mL/min/1.73m2 () (test code = 5686107886) JAMES (test code = JAMES) Association of [...] tests). Lab Interpretation Abnormal (test code = 34031-5) [facility] CenterLactic Acid Whole [id number] 12:23:00 Test Item Value Reference Range Interpretation Comments LACTIC ACID (test code = 2.09 mmol/L 0.50-2.20 2329762859) Lab Interpretation (test code = Normal 41332-0) [facility] CenterCB WITH [id number] 12:17:00 Test Item Value Reference Range Interpretation Comments WBC (test code = See_Comment H [Automated 6190-2) message] The sy stem which generated this [...] RDW-SD (test code = 44.9 fL 38.5-51.6 87631-5) RDW-CV (test code = 15.9 % 12.1-15.4 H 788-0) PLT (test code = See_Comment H [Automated 777-3) message] The sy stem which generated this result transmitted reference range : 150 - 328 10*3/ ?L. The reference r torito was not used to interpret this result as normal/abnormal . MPV (test code = 8.3 fL 9.8-13.0 L 03641-7) NRBC/100 WBC (test See_Comment [Automat ed code = 9233400541) message] The system which generated this result transmitted reference range : 0.0 - 10.0 /100 WBCs. The refer ence range was not u sed to interpret th is result as normal/abnormal . NRBC x10^3 (test code <0.01 See_Comment [Auto mated = 1438029893) message] The s ystem which generated this result transmitted reference range : 10*3/?L. The reference range was not used to interpret this result as normal/abnormal . GRAN MAT (NEUT) % 77.9 % (test code = 770-8) IMM GRAN % (test code 0.50 % = 1368190632) LYMPH % (test code = 12.2 % 736-9) MONO % (test code = 5.2 % 5905-5) EOS % (test code = 3.7 % 713-8) BASO % (test code = 0.5 % 706-2) GRAN MAT x10^3(ANC) 9.57 10*3/uL 1.99-6.95 H (test code = 4617123033) IMM GRAN x10^3 (test 0.06 10*3/uL 0.00-0.06 code = 5023305434) LYMPH x10^3 (test code 1.50 10*3/uL 1.09-3.23 = 731-0) MONO x10^3 (test code 0.64 10*3/uL 0.36-1.02 = 742-7) EOS x10^3 (test code = 0.46 10*3/uL 0.06-0.53 711-2) BASO x10^3 (test code 0.06 10*3/uL 0.01-0.09 = 704-7) Lab Interpretation Abnormal (test code = 61584-4) [facility] CenterLAB ONLY COVID [id number] 18:43:00COVID DMT InterpretationInterpretation/Recommendations: Molecular NAAT Test Results [...] a nasopharyngeal sample, there is approximately a wix-nu-lyskc chance that the patient was infected and [...] based upon aggregate data pooled from the [facility] medical record including both current and prior COVID-19 related testing results for the following tests offered at our institution:A. Tests for the Identification of SARS-CoV-2 RNA:SARS-CoV-2 PCR assays including [place] Aptima, [place] Fusion, Barrett RealTime, and inEarth Xpert Xpress. SARS-CoV-2 Rapid ID NOW by the ID NOW assay. ? B. Tests for the Identification of SARS-CoV-2 Antibodies: Chemiluminescent immunoassays including Access SARS-CoV-2 IgM (DXI 600), CaprizaS Iesu-LSBQ-RiR-2 IgG (Vitros 5600 and Vitros 3600), and Barrett SARS-CoV-2 IgG (STEM TEACHER I System). These interpretation comments assume that only the above testing was utilized and that the approved acceptable specimen type(s) were used for a given test. These interpretations are autopopulated into [employer] based on computerized algorithms matching an interpretation [...] setting. [facility] LABORATORY SERVICESCOVID IujjrjkEAEB-LiP-8 Rapid ID NOW (no units) ? ? Date ? Value ? 08/21/2020 ? Not Detected ? [facility]Un[facility]2020-08-23 18:25:00 Test Item Value Reference Range Interpretation Comments POCT GLU (test code = 4511281751) 297 mg/dL 70-110 H Lab Interpretation (test code = Abnormal 40919-9) [facility] GLUCOSE (AUTOMATED)2020-08-23 14:25:00 Test Item Value Reference Range Interpretation Comments POCT GLU (test code = 4531369950) 181 mg/dL 70-110 H Lab Interpretation (test code = Abnormal 67562-6) [facility] CenterBasi Metabolic Panel (NA, K, CL, CO2, GLUCOSE, BUN, CREATININE, CA)2020-08-23 11:45:00 Test Item Value Reference Range Interpretation Comments NA (test code = 132 mmol/L 135-145 L 8022445068) K (test code = 4.0 mmol/L 3.5-5 6980223435) CL (test code = 96 mmol/L 98-108 L 2322124348) CO2 TOTAL (test code = 33 mmol/L 23-31 H 2926966905) AGAP (test code = 2-16 0421508702) BUN (test code = 9 mg/dL 7-23 3535764123) GLUCOSE (test code = 176 mg/dL 70-110 H 3063664622) CREATININE (test code = 0.66 mg/dL 0.6-1.25 5965017292) CALCIUM (test code = 8.5 mg/dL 8.6-10.6 L 9582509613) eGFR Calculation mL/min/1.73m2 (Non-) (test code = 1007784899) eGFR Calculation mL/min/1.73m2 () (test code = 8878586858) JAMES (test code = JAMES) Association of [...] tests). Lab Interpretation Abnormal (test code = 03007-1) [facility] CenterMagnesium [id number] 11:45:00 Test Item Value Reference Range Interpretation Comments MAGNESIUM (test code = 9981370149) 2.0 mg/dL 1.7-2.4 Lab Interpretation (test code = Normal 17171-6) [facility] CenterCB with Uyrbmomwygjz5562-61-15 11:38:00 Test Item Value Reference Range Interpretation [...] RDW-SD (test code = 41.8 fL 38.5-51.6 03152-7) RDW-CV (test code = 14.3 % 12.1-15.4 788-0) PLT (test code = See_Comment H [Automated 777-3) message] The sy stem which generated this result transmitted reference range : 150 - 328 10*3/ ?L. The reference r torito was not used to interpret this result as normal/abnormal . MPV (test code = 8.0 fL 9.8-13 L 94325-9) NRBC/100 WBC (test See_Comment [Automat ed code = 2135539481) message] The system which generated this result transmitted reference range : 0.0 - 10.0 /100 WBCs. The refer ence range was not u sed to interpret th is result as normal/abnormal . NRBC x10^3 (test code <0.01 See_Comment [Auto mated = 5733804711) message] The s ystem which generated this result transmitted reference range : 10*3/?L. The reference range was not used to interpret this result as normal/abnormal . GRAN MAT (NEUT) % 61.5 % (test code = 770-8) IMM GRAN % (test code 2.00 % = 7406944599) LYMPH % (test code = 25.5 % 736-9) MONO % (test code = 6.3 % 5905-5) EOS % (test code = 3.7 % 713-8) BASO % (test code = 1.0 % 706-2) GRAN MAT x10^3(ANC) 5.29 10*3/uL 1.99-6.95 (test code = 8221884791) IMM GRAN x10^3 (test 0.17 10*3/uL 0-0.06 H code = 5364253984) LYMPH x10^3 (test code 2.19 10*3/uL 1.09-3.23 = 731-0) MONO x10^3 (test code 0.54 10*3/uL 0.36-1.02 = 742-7) EOS x10^3 (test code = 0.32 10*3/uL 0.06-0.53 711-2) BASO x10^3 (test code 0.09 10*3/uL 0.01-0.09 = 704-7) Lab Interpretation Abnormal (test code = 72140-7) [facility] GLUCOSE (AUTOMATED)2020-08-23 10:22:00 Test Item Value Reference Range Interpretation Comments POCT GLU (test code = 9891038103) 164 mg/dL 70-110 H Lab Interpretation (test code = Abnormal 17464-3) [facility] GLUCOSE (AUTOMATED)2020-08-23 05:56:00 Test Item Value Reference Range Interpretation Comments POCT GLU (test code = 5258878241) 242 mg/dL 70-110 H Lab Interpretation (test code = Abnormal 21806-6) [facility] GLUCOSE (AUTOMATED)2020-08-23 03:02:00 Test Item Value Reference Range Interpretation Comments POCT GLU (test code = 8487883068) 210 mg/dL 70-110 H Lab Interpretation (test code = Abnormal 27731-2) [facility] GLUCOSE (AUTOMATED)2020-08-22 23:40:00 Test Item Value Reference Range Interpretation Comments POCT GLU (test code = 3879607411) 267 mg/dL 70-110 H Lab Interpretation (test code = Abnormal 85257-6) [facility] GLUCOSE (AUTOMATED)2020-08-22 19:08:00 Test Item Value Reference Range Interpretation Comments POCT GLU (test code = 6560494571) 191 mg/dL 70-110 H Lab Interpretation (test code = Abnormal 63456-5) [facility] GLUCOSE (AUTOMATED)2020-08-22 13:50:00 Test Item Value Reference Range Interpretation Comments POCT GLU (test code = 0309463704) 174 mg/dL 70-110 H Lab Interpretation (test code = Abnormal 50592-5) [facility] CenterURINE [id number] 12:59:00 Test Item Value Reference Range Interpretation Comments URINE CULTURE (test No aerobic growth (< code = 630-4) 1000 CFU/mL) [facility] with Vltxmdrtfcmy9073-19-87 11:28:00 Test Item Value Reference Range Interpretation [...] RDW-SD (test code = 42.5 fL 38.5-51.6 23463-7) RDW-CV (test code = 14.5 % 12.1-15.4 788-0) PLT (test code = See_Comment H [Automated 777-3) message] The sy stem which generated this result transmitted reference range : 150 - 328 10*3/ ?L. The reference r torito was not used to interpret this result as normal/abnormal . MPV (test code = 8.0 fL 9.8-13 L 87471-0) NRBC/100 WBC (test See_Comment [Automat ed code = 8111759548) message] The system which generated this result transmitted reference range : 0.0 - 10.0 /100 WBCs. The refer ence range was not u sed to interpret th is result as normal/abnormal . NRBC x10^3 (test code <0.01 See_Comment [Auto mated = 3722192248) message] The s ystem which generated this result transmitted reference range : 10*3/?L. The reference range was not used to interpret this result as normal/abnormal . GRAN MAT (NEUT) % 69.1 % (test code = 770-8) IMM GRAN % (test code 2.20 % = 9091112105) LYMPH % (test code = 20.9 % 736-9) MONO % (test code = 5.8 % 5905-5) EOS % (test code = 1.0 % 713-8) BASO % (test code = 1.0 % 706-2) GRAN MAT x10^3(ANC) 6.51 10*3/uL 1.99-6.95 (test code = 0795918181) IMM GRAN x10^3 (test 0.21 10*3/uL 0-0.06 H code = 7621012279) LYMPH x10^3 (test code 1.97 10*3/uL 1.09-3.23 = 731-0) MONO x10^3 (test code 0.55 10*3/uL 0.36-1.02 = 742-7) EOS x10^3 (test code = 0.09 10*3/uL 0.06-0.53 711-2) BASO x10^3 (test code 0.09 10*3/uL 0.01-0.09 = 704-7) BASO STIPPLING (test Present A code = 703-9) BANDS (test code = Increased A 3831667142) TOXIC CHANGES (test Present A code = 803-7) Lab Interpretation Abnormal (test code = 99526-4) [facility] Metabolic Panel (NA, K, CL, CO2, GLUCOSE, BUN, CREATININE, CA)2020-08-22 11:12:00 Test Item Value Reference Range Interpretation Comments NA (test code = 135 mmol/L 135-145 3407314523) K (test code = 3.6 mmol/L 3.5-5 1840489069) CL (test code = 99 mmol/L 98-108 5046074848) CO2 TOTAL (test code = 31 mmol/L 23-31 9940097867) AGAP (test code = 2-16 8835705345) BUN (test code = 9 mg/dL 7-23 4830189344) GLUCOSE (test code = 198 mg/dL 70-110 H 9533334451) CREATININE (test code = 0.72 mg/dL 0.6-1.25 6112768604) CALCIUM (test code = 8.3 mg/dL 8.6-10.6 L 1564127263) eGFR Calculation mL/min/1.73m2 (Non-) (test code = 5711700688) eGFR Calculation mL/min/1.73m2 () (test code = 7904546880) JAMES (test code = JAMES) Association of [...] tests). Lab Interpretation Abnormal (test code = 73099-9) [facility] CenterMagnesium [id number] 11:12:00 Test Item Value Reference Range Interpretation Comments MAGNESIUM (test code = 0519216078) 2.0 mg/dL 1.7-2.4 Lab Interpretation (test code = Normal 47859-6) [facility] CenterLipid Panel (Total Cholesterol, Triglycerides, HDL) - [id number] 11:12:00 Test Item Value Reference Range Interpretation Comments CHOL (test code = 155 mg/dL 120-200 1056090974) HDL (test code = 42 mg/dL >40 2325644332) HDLC RATIO (test code = See_Comment [Au tomated message] 5436665025) The system [employer] generated this result transmit ronan reference range : <=5.0. The refe rence range was not u sed to interpret th is result as normal/abnormal . TRIG (test code = 186 mg/dL 30-170 H 0977726927) LDL CHOL (test code = 76 mg/dL See_Comment [Auto mated message] 32114-5) The system [employer] generated this result transmit ronan reference range : <=160. The refe rence range was not u sed to interpret th is result as normal/abnormal . VLDL (test code = 37 mg/dL 5-60 1617988124) Lab Interpretation (test Abnormal code = 37480-0) [facility] CenterHEPATIC FUNCTION PANEL (23669) (ALB,T.PRO,BILI T,BU/BC,ALT,AST,ALK PHOS)2020-08-22 11:12:00 Test Item Value Reference Range Interpretation Comments TOTAL BILI (test code = 4137471944) 0.6 mg/dL 0.1-1.1 BILI UNCON (test code = 8801590134) 0.2 mg/dL 0.1-1.1 BILI CONJ (test code = 8501600727) 0.0 mg/dL 0-0.3 T PROTEIN (test code = 8989747600) 6.0 g/dL 6.3-8.2 L ALBUMIN (test code = 8466473661) 2.8 g/dL 3.5-5 L ALK PHOS (test code = 3798088597) 222 U/L 34-122 H ALTv (test code = 1742-6) 27 U/L 5-50 AST(SGOT) (test code = 3716904954) 30 U/L 13-40 Lab Interpretation (test code = Abnormal 42125-2) [facility] GLUCOSE (AUTOMATED)2020-08-22 10:11:00 Test Item Value Reference Range Interpretation Comments POCT GLU (test code = 6008636709) 196 mg/dL 70-110 H Lab Interpretation (test code = Abnormal 59422-7) [facility] GLUCOSE (AUTOMATED)2020-08-22 07:15:00 Test Item Value Reference Range Interpretation Comments POCT GLU (test code = 0502648111) 183 mg/dL 70-110 H Lab Interpretation (test code = Abnormal 69786-7) [facility] GLUCOSE (AUTOMATED)2020-08-22 02:30:00 Test Item Value Reference Range Interpretation Comments POCT GLU (test code = 4083567992) 295 mg/dL 70-110 H Lab Interpretation (test code = Abnormal 28739-9) [facility] GLUCOSE (AUTOMATED)2020-08-21 23:46:00 Test Item Value Reference Range Interpretation Comments POCT GLU (test code = 7781317411) 258 mg/dL 70-110 H Lab Interpretation (test code = Abnormal 25766-5) [facility] CenterC-REACTIVE [id number] 18:50:00 Test Item Value Reference Range Interpretation Comments CRP (test code = 7453092532) 15.5 mg/dL <0.8 H Lab Interpretation (test code = Abnormal 60343-6) [facility]PO[facility]2020-08-21 18:21:00 Test Item Value Reference Range Interpretation Comments POCT GLU (test code = 3175310249) 297 mg/dL 70-110 H Lab Interpretation (test code = Abnormal 79925-2) [facility] CenterETHANOL2020-11-09 16:24:00 Test Item Value Reference Range Interpretation Comments ALCOHOL (test code = <10 mg/dL 7989228168) JAMES (test code = Toxic Greater than or JAMES) equal to 80 mg/dL. NOTE: Whole blood values are approximately 10% to 15% lower than serum and plasma. [facility] CenterGAL/CLC ONLY - URINE DRUG (IMMUNOASSAY) - 4 ER [id number] 15:36:00 Test Item Value Reference Range Interpretation Comments AMPHET (test code = Negative Negative 8504598655) Cocaine Metabolite (test Negative Negative code = 7874867889) OPIATES (test code = Presumptive Positive Negative A 3411054202) THC (test code = Negative Negative 0440146526) JAMES (test code = JAMES) Urine Drug Cutoff Ranges Amphetamine: ? 1,000 ng/mLCocaine: ? 150 ng/mLOpiates: ? 300 ng/mLCannabinoids: ?50 ng/mL The results are to be used only for medical (i.e., treatment) purposes. Unconfirmed screening results must not be used for non-medical purposes (e.g., employment testing, legal testing). Lab Interpretation (test Abnormal code = 52631-9) [facility] ONLY - SYPHILIS [id number] 15:04:00 Test Item Value Reference Range Interpretation Comments Syphilis IgG/IgM (test Non-reactive Non-reactive code = 34620-5) JAMES (test code = JAMES) Non-reactive - No serologic evidence of T. pallidum infection. Cannot exclude incubating or early syphilis. Submit a second specimen in 2-4 weeks if syphilis is clinically suspected. Equivocal - Further testing to follow. Reactive - Further testing to follow. Lab Interpretation (test Normal code = 21322-4) [facility] CenterUrinalysis2020-11-09 14:52:00 Test Item Value Reference Range Interpretation Comments APPEARANCE (test code = Clear Clear 1811090101) COLOR (test code = Yellow Yellow 0699967230) PH (test code = 4.8-8.0 2461366074) SP GRAVITY (test code = 1.003-1.030 0663560405) GLU U QUAL (test code = 500 mg/dL Normal A 0713497467) BLOOD (test code = Negative Negative 4563341891) KETONES (test code = 20 mg/dL Negative A 2218184151) PROTEIN (test code = Negative Negative 2887-8) UROBILIN (test code = Normal Normal 0958734604) BILIRUBIN (test code = Negative Negative 8237859229) NITRITE (test code = Negative Negative 6710283278) LEUK RYAN (test code = Negative Negative 5854855230) RBC/HPF (test code = <1 See_Comment [Autom ated message] 6590955613) The system [employer] generated this result transmit ronan reference range : 0 - 3 HPF. The refe rence range was not u sed to interpret th is result as normal/abnormal . WBC/HPF (test code = See_Comment [Autom ated message] 7006151425) The system [employer] generated this result transmit ronan reference range : 0 - 5 HPF. The refe rence range was not u sed to interpret th is result as normal/abnormal . BACTERIA (test code = Negative Negative 3454965961) MUCOUS (test code = Slight Negative LPF A 9122375753) Lab Interpretation (test Abnormal code = 54652-8) [facility] CenterACTIVATED PARTIAL THRMPLAS [id number] 13:45:00 Test Item Value Reference Range Interpretation Comments APTT Patient (test code = See_Comment [ Automated message] 3173-2) The system [employer] generated this result transmitted ref erence range: 26 - 36 Seconds. The re ference range was not u sed to interpret this result as normal/abnor mal. Lab Interpretation (test Normal code = 30793-7) [facility] CenterPOCT [facility]SE (AUT[facility]ATED)2020-08-21 13:45:00 Test Item Value Reference Range Interpretation Comments POCT GLU (test code = 8096138251) 246 mg/dL 70-110 H Lab Interpretation (test code = Abnormal 76997-2) [facility] CenterHIV 1/2 AG-AB WITH [id number] 12:32:00 Test Item Value Reference Range Interpretation Comments HIV Negative Negative Semi-quantitative (test code = 27835-4) JAMES (test code = Non-reactive for HIV-1 JAMES) antigen and HIV-1/HIV-2 antibodies. ?No laboratory evidence of HIV infection. ?Repeat in 2-4 weeks if acute HIV infection is suspected. [facility] CenterCB WITH [id number] 12:18:00 Test Item Value Reference Range Interpretation [...] RDW-SD (test code = 44.4 fL 38.5-51.6 97811-6) RDW-CV (test code = 14.5 % 12.1-15.4 788-0) PLT (test code = See_Comment H [Automated 777-3) message] The sy stem which generated this result transmitted reference range : 150 - 328 10*3/ ?L. The reference r torito was not used to interpret this result as normal/abnormal . MPV (test code = 8.5 fL 9.8-13 L 95011-5) NRBC/100 WBC (test See_Comment [Automat ed code = 3724908302) message] The system which generated this result transmitted reference range : 0.0 - 10.0 /100 WBCs. The refer ence range was not u sed to interpret th is result as normal/abnormal . NRBC x10^3 (test code <0.01 See_Comment [Auto mated = 2898744585) message] The s ystem which generated this result transmitted reference range : 10*3/?L. The reference range was not used to interpret this result as normal/abnormal . GRAN MAT (NEUT) % 90.4 % (test code = 770-8) IMM GRAN % (test code 1.30 % = 3305018079) LYMPH % (test code = 7.1 % 736-9) MONO % (test code = 0.5 % 5905-5) EOS % (test code = 0.1 % 713-8) BASO % (test code = 0.6 % 706-2) GRAN MAT x10^3(ANC) 7.74 10*3/uL 1.99-6.95 H (test code = 9002176178) IMM GRAN x10^3 (test 0.11 10*3/uL 0-0.06 H code = 6225224790) LYMPH x10^3 (test code 0.61 10*3/uL 1.09-3.23 L = 731-0) MONO x10^3 (test code 0.04 10*3/uL 0.36-1.02 L = 742-7) EOS x10^3 (test code = <0.03 0.06-0.53 L 711-2) BASO x10^3 (test code 0.05 10*3/uL 0.01-0.09 = 704-7) POLYCHROMASIA (test 2+ See_Comment [Automa ronan code = 13715-8) message] The system which generated this result transmitted reference range : 2+. The referen ce range was not u sed to interpret th is result as normal/abnormal . BANDS (test code = Increased A 2965476873) Lab Interpretation Abnormal (test code = 93771-3) [facility] 11:48:00 Test Item Value Reference Range Interpretation Comments Procalcitonin (test 0.36 ng/mL <0.07 H code = 7907942408) JAMES (test code = JAMES) INTERPRETATION OF [...] lung abscess/empyema. For further information please refer to:[email or web address] Lab Interpretation Abnormal (test code = 68266-2) [facility] CenterLATNATE [id number] 10:53:00 Test Item Value Reference Range Interpretation Comments LDH (test code = 8726627878) 351 U/L 300-600 Lab Interpretation (test code = Normal 67993-9) [facility] CenterSEDIMENTATION [id number] 10:07:00 Test Item Value Reference Range Interpretation Comments ESR (test code = See_Comment H [Automated message] 7024455126) The system [employer] generated this result transmitted ref erence range: 0 - 10 m m/HR. The reference r torito was not used to interpret this result as normal/abnor mal. Lab Interpretation (test Abnormal code = 55359-4) [facility] GLUCOSE (AUTOMATED)2020-08-21 09:45:00 Test Item Value Reference Range Interpretation Comments POCT GLU (test code = 7662489640) 287 mg/dL 70-110 H Lab Interpretation (test code = Abnormal 41925-5) [facility] CenterGlycosylated Hemoglobin (A1C)2020-08-21 09:29:00 Test Item Value Reference Range Interpretation Comments HGB A1C (test code = 4548-4) 9.8 % 4-6 H Lab Interpretation (test code = Abnormal 20390-9) [facility] CenterCOVID-19 (ID NOW RAPID TESTING)2020-08-21 09:13:00 Test Item Value Reference Range Interpretation Comments SARS-CoV-2 Rapid ID NOW Not Detected Not Detected (test code = 55199-1) JAMES (test code = JAMES) ID NOW COVID-19 Assay is an isothermal nucleic acid amplification test intended for the qualitative detection of nucleic acid from SARS-CoV-2 viral RNA in nasopharyngeal (ADULT SCHOOL COUNSELOR) specimens. It is used under Emergency Use [...] indicated. Lab Interpretation Normal (test code = 95166-1) [facility] CenterProthrombin Time / [id number] 08:59:00 Test Item Value Reference Range Interpretation Comments PROTIME PATIENT (test See_Comment H [Auto mated message] code = 5964-2) The system [employer] generated this result transmitted ref erence range: 10.1 - 1 2.6 Seconds. The reference range was not used to int erpret this result as normal/abnormal . INR (test code = 6301-6) Nor mal INR <1.1; Warfarin Therap eutic range 2.0 to 3. 0 or 2.5 to 3.5, dep ending upon the indica tions. Lab Interpretation (test Abnormal code = 72560-8) [facility] CenteraPTT2020-11-09 08:59:00 Test Item Value Reference Range Interpretation Comments APTT Patient (test code = See_Comment [ Automated message] 3173-2) The system [employer] generated this result transmitted ref erence range: 26 - 36 Seconds. The re ference range was not u sed to interpret this result as normal/abnor mal. Lab Interpretation (test Normal code = 66171-9) [facility] CenterBASI METABOLIC PANEL (NA, K, CL, CO2, GLUCOSE, BUN, CREATININE, CA)2020-08-21 08:52:00 Test Item Value Reference Range Interpretation Comments NA (test code = 136 mmol/L 135-145 8405081933) K (test code = 4.3 mmol/L 3.5-5 1007531110) CL (test code = 104 mmol/L 98-108 2995399013) CO2 TOTAL (test code = 24 mmol/L 23-31 6396623267) AGAP (test code = 2-16 5231076162) BUN (test code = 8 mg/dL 7-23 2950564854) GLUCOSE (test code = 308 mg/dL 70-110 H 0427862435) CREATININE (test code = 0.72 mg/dL 0.6-1.25 8703467055) CALCIUM (test code = 7.8 mg/dL 8.6-10.6 L 0615151685) eGFR Calculation mL/min/1.73m2 (Non-) (test code = 9116623887) eGFR Calculation mL/min/1.73m2 () (test code = 9921048455) JAMES (test code = JAMES) Association of [...] tests). Lab Interpretation Abnormal (test code = 66144-7) [facility] CenterHEPATIC FUNCTION PANEL (11823) (ALB,T.PRO,BILI T,BU/BC,ALT,AST,ALK PHOS)2020-08-21 08:52:00 Test Item Value Reference Range Interpretation Comments TOTAL BILI (test code = 4421036709) 0.8 mg/dL 0.1-1.1 BILI UNCON (test code = 4918982524) 0.3 mg/dL 0.1-1.1 BILI CONJ (test code = 7567573146) 0.0 mg/dL 0-0.3 T PROTEIN (test code = 8434124247) 5.7 g/dL 6.3-8.2 L ALBUMIN (test code = 2405432101) 2.7 g/dL 3.5-5 L ALK PHOS (test code = 6652914255) 245 U/L 34-122 H ALTv (test code = 1742-6) 37 U/L 5-50 AST(SGOT) (test code = 8632819040) 43 U/L 13-40 H Lab Interpretation (test code = Abnormal 22388-1) [facility]
--- NOTE | 2022-01-06 00:17 | ER ---
Nurse's Notes [facility] Name: Kiel Ngo Age: 71 yrs Sex: Male : 1950 Arrival Date: 01/06/2022 Time: 00:01 Bed 18 Private MD: Diagnosis: Chronic pain syndrome Presentation: 01/06 00:02 Chief complaint: EMS states: pt has been having R upper leg and groin pain, unable to sm5 straighten leg out due to pain. pt is bed bound. seen here a couple weeks ago for same issue. Coronavirus screen: Vaccine status: Patient reports being unvaccinated. Ebola Screen: No symptoms or risks identified at this time. Initial Sepsis Screen: Does the patient meet any 2 criteria? No. Patient's initial sepsis screen is negative. Does the patient have a suspected source of infection? No. Patient's initial sepsis screen is negative. Risk Assessment: Do you want to hurt yourself or someone else? Patient reports no desire to harm self or others. Onset of symptoms was December 20, 2021. 00:02 Method Of Arrival: [facility] 00:02 Acuity: JOZEF 4 sm5 Triage Assessment: 00:04 General: Appears in no apparent distress. Behavior is cooperative. Pain: Complains of sm5 pain in right inner thigh and groin. Neuro: No deficits noted. Level of Consciousness is awake, alert, obeys commands, Oriented to person, place, time, situation. Cardiovascular: No deficits noted. Capillary refill < 3 seconds Patient's skin is warm and dry. Respiratory: No deficits noted. Airway is patent Trachea midline Respiratory effort is even, unlabored. Musculoskeletal: Range of motion: limited in right hip due to pain. Historical: - Allergies: 00:03 Demerol; sm5 00:03 metformin; sm5 00:03 Morphine; sm5 - PMHx: 00:03 Atrial fibrillation; chronic back pain; Chronic right leg pain; neuropathy; sm5 - PSHx: 00:03 back sx; PANCREAS SX; R. Ankle SX; sm5 - Immunization history:: Client reports having NOT received the Covid vaccine. Flu vaccine is not up to date. - Social history:: Smoking status: Patient denies any tobacco usage or history of. Screenin:06 Abuse screen: Denies threats or abuse. Denies injuries from another. Nutritional 5 screening: No deficits noted. Tuberculosis screening: No symptoms or risk factors identified. Fall Risk None identified. Assessment: 00:08 Reassessment: see triage assessment. 5 00:56 Reassessment: Patient states symptoms have improved. [facility] Vital Signs: 00:02 BP 169 / 89; Pulse 90; Resp 18; Temp 98.0(O); Pulse Ox 99% on R/A; Weight 83.91 kg; sm5 Height 5 ft. 11 in. (180.34 cm); Pain 10/10; 00:56 BP 166 / 95; Pulse 93; Resp 17; Pulse Ox 97% on R/A; sm5 00:02 Body Mass Index 25.80 (83.91 kg, 180.34 cm) [facility] ED Course: 00:01 Patient arrived in ED. 5 00:03 Triage completed. 5 00:04 Arm band placed on right wrist. [facility] 00:05 Vera Lee FNP-C [facility]. kb 00:05 Ruben Mendoza MD is Attending Physician. kb 00:07 Patient has correct armband on for positive identification. Bed in low position. Call [facility] light in reach. Side rails up X2. Pulse ox on. NIBP on. 00:11 Kelly Truong, DIEGO is Primary Nurse. [facility] 00:57 No provider procedures requiring assistance completed. Patient did not have IV access [facility] during this emergency room visit. Administered Medications: 00:24 Not Given (Patient Refused): Ketorolac 30 mg IM once [facility] 00:24 Drug: Flexeril (cyclobenzaprine) 10 mg Route: PO; 5 00:57 Follow up: Response: Pain is decreased [facility] Outcome: 00:16 Discharge ordered by . kb 00:57 Discharged to home via ambulance. 5 00:57 Condition: stable 00:57 Discharge instructions given to patient, Instructed on discharge instructions, follow up and referral plans. Demonstrated understanding of instructions, follow-up care. 00:58 Patient left the ED. [facility] Signatures: Vera Lee FNP-C FNP-Kelly Nam RN RN [facility]
--- NOTE | 2022-01-06 00:17 | EDPHYS ---
Physician Documentation [facility] Name: Kiel Ngo Age: 71 yrs Sex: Male : 1950 Arrival Date: 01/06/2022 Time: 00:01 Bed 18 Private MD: ED Physician Ruben Mendoza HPI: 01/06 00:12 This 71 yrs old Male presents to ER via EMS with complaints of chronic leg pain. kb 00:12 The patient presents with pain, that is chronic. The complaints affect the right leg. kb Context: resulted from a chronic condition, the patient is not able to bear weight, the patient is not able to ambulate, pt is bed bound. Onset: The symptoms/episode began/occurred long ago. Modifying factors: The symptoms are alleviated by nothing. the symptoms are aggravated by nothing. Associated signs and symptoms: The patient has no apparent associated signs or symptoms. Treatment prior to arrival includes: prescription medications. Severity of symptoms: At their worst the symptoms were moderate, in the emergency department the symptoms are unchanged. The patient has experienced similar episodes in the past, chronically. The patient has not recently seen a physician. Pt came in for exacerbation of chronic right leg pain. States he has been taking 4mg dilaudid po 3 times a day and Dr Alonso is going to increase it to 4 times a day at the next appt in January. States there is no new pain today, no injury. States they have been unable to find cause of pain. Sensation intact. Pulses wnl. . Historical: - Allergies: 00:03 Demerol; sm5 00:03 metformin; sm5 00:03 Morphine; sm5 - PMHx: 00:03 Atrial fibrillation; chronic back pain; Chronic right leg pain; neuropathy; sm5 - PSHx: 00:03 back sx; PANCREAS SX; R. Ankle SX; sm5 - Immunization history:: Client reports having NOT received the Covid vaccine. Flu vaccine is not up to date. - Social history:: Smoking status: Patient denies any tobacco usage or history of. ROS: 00:11 Constitutional: Negative for fever, chills, and weight loss. kb 00:11 MS/extremity: Positive for pain, of the right leg. 00:11 All other systems are negative. Exam: 00:11 Constitutional: This is a well developed, well nourished patient who is awake, alert, kb and in no acute distress. Head/Face: Normocephalic, atraumatic. ENT: Moist Mucous membranes Respiratory: Respirations even and unlabored. No increased work of breathing. Talking in full sentences Skin: Warm, dry with normal turgor. Normal color. Neuro: Awake and alert, GCS 15, oriented to person, place, time, and situation. Moves all extremities. Normal gait. Psych: Awake, alert, with orientation to person, place and time. Behavior, mood, and affect are within normal limits. 00:11 Musculoskeletal/extremity: Extremities: grossly normal except: noted in the right leg: ROM: limited passive range of motion due to pain, Circulation is intact in all extremities. Sensation intact. Weight bearing: is unable to bear weight. Vital Signs: 00:02 BP 169 / 89; Pulse 90; Resp 18; Temp 98.0(O); Pulse Ox 99% on R/A; Weight 83.91 kg; sm5 Height 5 ft. 11 in. (180.34 cm); Pain 10/10; 00:56 BP 166 / 95; Pulse 93; Resp 17; Pulse Ox 97% on R/A; sm5 00:02 Body Mass Index 25.80 (83.91 kg, 180.34 cm) 5 MDM: 00:05 Patient medically screened. kb 00:11 Data reviewed: vital signs, nurses notes. Data interpreted: Pulse oximetry: on room air kb is 99 %. Interpretation: normal. 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 Administered Medications: 00:24 Not Given (Patient Refused): Ketorolac 30 mg IM once sm5 00:24 Drug: Flexeril (cyclobenzaprine) 10 mg Route: PO; sm5 00:57 Follow up: Response: Pain is decreased 5 Disposition: 01:17 Co-signature as Attending Physician, Ruben Mendoza MD. [email or web address] Disposition Summary: 01/06/22 00:16 Discharge Ordered Location: Home kb Condition: Stable kb Diagnosis - Chronic pain syndrome kb Followup: kb - With: Emergency Department - When: As needed - Reason: Worsening of condition Followup: kb - With: Private Physician - When: 2 - 3 days - Reason: Recheck today's complaints, Continuance of care, Re-evaluation by your physician Discharge Instructions: - Discharge Summary Sheet kb - Chronic Pain, Adult kb Forms: - Medication Reconciliation Form kb - Thank You Letter kb - Antibiotic Education kb - Prescription Opioid Use kb Signatures: Vera Lee, KYLEE-C KYLEE-Ruben Edwards MD MD 7 Kelly Truong RN RN sm5
[2022-01-06] MEDS ORDERED: CYCLOBENZAPRINE 10 MG TAB ONE (00:20)
[2022-01-06] MEDS ORDERED: KETOROLAC 30 MG/ML INJ ONE (00:20)
[2022-01-06 01:32] VITALS: TEMP 98
[2022-01-06 01:37] VITALS: BP 166/95; O2SAT 97
== END 2022-01-06 00:58 | disposition home or self-care (01) ==
LOC: ER 23:55
DX: G89.29 Other chronic pain (principal); Z88.6 Allergy status to analgesic agent; Z88.8 Allergy status to other drugs, medicaments and biological substances; I48.91 Unspecified atrial fibrillation; G62.9 Polyneuropathy, unspecified
CPT/HCPCS: 99283

== ENCOUNTER 2022-01-08 09:04 | Emergency (ER) | payer OTHER ==
--- OUTSIDE RECORDS SUMMARY | 2022-01-08 09:11 | XMS REPORT | Continuity of Care Document ---
:1950 Author Organization [facility] t Address [address] [place] [address] Dr. [address]. [address] [place] [address] Care Team Providers Name Role Phone Edy [...] Expiration Date S ource MEDICARE PART A [id number] 2007 \\T\\ B 00:00:00 [employer] INDEMNITY [id number] 2016 00:00:00 MEDICARE PART A [id number] 2014 \\T\\ B - MEDICARE 00:00:00 INDEMNITY/TRADITIO [id number] NAL CHOICE - [employer] 00:00:00 Problems Condition [...] ents Source Name Type Date Date Clinician [place] [facility] Active Rash 2020- Univers ty to [...] vers NE INGREDI 3-16 ity of 00:00: [place] 00 [facility] Branch GLIMEPIR DRUG Active Hives Univers EFREN INGREDI 3-16 ity of 00:00: [place] 00 Medical Branch METFORMI DRUG Active ITCHING Univers N INGREDI 3-16 ity of 00:00: [place] 00 Medical Branch Social History Social Habit Start Date Stop Date Quantity Comments Source Exposure to Not sure [place] of SARS-CoV-2 [facility] (event) Branch History of Chews Tobacco University of tobacco use [facility] History SDOH 2020-11-17 2020-11-17 5 University o f Financial 00:00:00 00:00:[address] [facility] History [facility] Food 2020-11-17 2020-11-17 1 Univers ity of Worry 00:00:00 00:00:[address] [facility] History [facility] Food 2020-11-17 2020-11-17 1 Univers ity of Scarcity 00:00:00 00:00:[address] [facility] History [facility] 2020-11-17 2020-11-17 1 University o f Transport Med 00:00:00 00:00:00 [facility] Branch History [facility] 2020-11-17 2020-11-17 1 University o f Transport Non-Med 00:00:00 00:00:00 [facility] edical Branch Education 2020-11-16 2020-11-16 21 [place] of 00:00:00 00:00:[address] [facility] Alcohol intake 2020-11-16 2020-11-16 Ex-drinker [place] of 00:00:00 00:00:00 (finding) [facility] Tobacco use and 2020-08-21 2020-08-21 Former user Universi ty of exposure 00:00:00 00:00:[address] [facility] Tobacco Comment 2020-08-21 2020-08-21 quit 10 years Univer sity of 00:00:00 00:00:00 ago, started in [place] Med ical 2nd year of Branch college (~40 years) Alcohol Comment 2020-08-21 2020-08-21 Used to have 2-3 Uni versity of 00:00:00 00:00:00 six-packs of [place] Medica l beer daily x 20 Branch years, quit 2005 History [facility] 2020-08-21 2020-08-21 99 University o f Alcohol Frequency 00:00:00 00:00:00 [place] M edical Branch History SDME 2020-08-21 2020-08-21 99 [place] o f Alcohol Std 00:00:00 00:00:00 [place] Medical Drinks Branch History SDME 2020-08-21 2020-08-21 99 University o f Alcohol Binge 00:00:00 00:00:00 [place] [facility] al Branch Sex [birth year] Universit y of 00:00:00 00:00:00 [place] [facility] [place] Smoking Status Start Date Stop Date Source Never smoker [facility] Branch Medications Ordered Filled Start Stop [...] by ity of tablet 16:47: mouth at [place] 18 bedtime. Medical Branch HYDROmorpho Yes 4mg [...] 0845, Until Discontinu ed, Routine amLODIPine Yes [id number] 10mg Take 1 Univers 10 mg 3-07 tablet by ity of tablet 00:00: mouth [place] 00 daily. Medical Branch clotrimazol Yes [id number] Apply to Univers e 1 % 3-07 face/ears, ity of topical 00:00: armpits, [place] cream 00 pannus and Medical back/any Branch other rash twice a day fluocinonid 0 Yes [id number] Apply to Univers e 0.05 % 3-07 scalp ity of solution 00:00: twice a [place] 00 day Medical Branch triamcinolo 0 Yes [id number] Apply to Univers ne 3-07 back, ity of acetonide 00:00: armpits [place] 0.1 % cream 00 and other Med ical affected Branch areas twice daily, please mix with clotrimazo le hydrOXYzine 0 Yes [id number] 10mg Take 1 Univers 10 mg 3-07 tablet by ity of tablet 00:00: mouth 2 00 (two) Medical times Branch daily. amLODIPine Yes [id number] 10mg Take 1 Univers 10 mg 3-07 tablet by ity of tablet 00:00: mouth 00 daily. Medical Branch clotrimazol 0 Yes [id number] Apply to Univers e 1 % 3-07 face/ears, ity of topical 00:00: armpits, [place] cream 00 pannus and Medical back/any Branch other rash twice a day fluocinonid 0 Yes [id number] Apply to Univers e 0.05 % 3-07 scalp ity of solution 00:00: twice a day Medical Branch triamcinolo Yes [id number] Apply to Univers ne 3-07 back, ity of acetonide 00:00: armpits [place] 0.1 % cream 00 and other Med ical affected Branch areas twice daily, please mix with clotrimazo le hydrOXYzine Yes [id number] 10mg Take 1 Univers 10 mg 3-07 tablet by ity of tablet 00:00: mouth 2 (two) Medical times Branch daily. amLODIPine Yes [id number] 10mg Take 1 Univers 10 mg 3-07 tablet by ity of tablet 00:00: mouth 00 daily. Medical Branch clotrimazol 0 Yes [id number] Apply to Univers e 1 % 3-07 face/ears, ity of topical 00:00: armpits, [place] cream 00 pannus and Medical back/any Branch other rash twice a day fluocinonid 2020-0 Yes [id number] Apply to Univers e 0.05 % 3-07 scalp ity of solution 00:00: twice a [place] 00 day Medical Branch triamcinolo 2020-0 Yes [id number] Apply to Univers ne 3-07 back, ity of acetonide 00:00: armpits [place] 0.1 % cream 00 and other Med ical affected Branch areas twice daily, please mix with clotrimazo le hydrOXYzine Yes [id number] 10mg Take 1 Univers 10 mg 3-07 tablet by ity of tablet 00:00: mouth 2 [place] 00 (two) Medical times Branch daily. amLODIPine Yes [id number] 10mg Take 1 Univers 10 mg 3-07 tablet by ity of tablet 00:00: mouth [place] 00 daily. Medical Branch clotrimazol Yes [id number] Apply to Univers e 1 % 3-07 face/ears, ity of topical 00:00: armpits, [place] cream 00 pannus and Medical back/any Branch other rash twice a day fluocinonid Yes [id number] Apply to Univers e 0.05 % 12-17 scalp ity of solution 00:00: twice a [place] 00 day Medical Branch triamcinolo Yes [id number] Apply to Univers ne 3-07 back, ity of acetonide 00:00: armpits [place] 0.1 % cream 00 and other Med ical affected Branch areas twice daily, please mix with clotrimazo le hydrOXYzine Yes [id number] 10mg Take 1 Univers 10 mg 3-07 tablet by ity of tablet 00:00: mouth 2 [place] 00 (two) Medical times Branch daily. cephALEXin 2020-2020- No [id number] 500mg Take 1 Univers 500 mg -04 14- capsule by ity of capsule 00:00: 05:59 mouth [place] 00 :00 every 6 Medical (six) Branch hours for 3 days. cephALEXin 2020-0 2020- No [id number] 500mg Take 1 Univers 500 mg 3-04 14-11 capsule by ity of capsule 00:00: 05:59 mouth [place] 00 :00 every 6 Medical (six) Branch hours for 3 days. hydrOXYzine 2020-2020- No [id number] 10mg Take 1 Univers 10 mg 3-04 14-07 tablet by ity of tablet 00:00: 00:00 mouth 2 [place] 00 :00 (two) Medical times Branch daily. morpHINE Yes 4mg 4 mg, Slow Uni vers injection 4 - IV Push, ity of mg 22:40: Q6HPRN, [place] 02 Starting Medical 12/16/20 Branch at 1640, [...] IV [place] 500 mL 00 :00 Piggyback, [facility] ONCE, 1 Branch dose, Fri12/15/20 at 1000, STAT HYDROmorpho Yes 4mg 4 mg, Unive rs ne 12-15 Oral, BID, ity of (DILAUDID) 15:30: First dose [place] tablet 4 mg 00 (after Medica l last Branch modificati on) on Fri12/15/20 at 0930, Until Discontinu ed, Routine amLODIPine 2020- No [id number] 10mg Take 1 Univers 10 mg 12-15 tablet by ity of tablet 00:00: 00:00 mouth [place] 00 :00 daily. Medical Branch HYDROmorpho No 1mg 1 mg, Univ ers ne 12-14 Oral, ity of (DILAUDID) 17:35: 15:18 Q6HPRN, [place] tablet 1 mg 30 :06 Starting Medi [facility] 12/14/20 Branch at 1135, Until Fri12/15/20 at 0918, Routine, Pain (scale 7-10) hydrOXYzine Yes 10mg 10 mg, [facility] ers (ATARAX) 12-14 Oral, BID, ity o f tablet 10 17:30: First dose [place] mg 00 on [facility] 12/14/20 at Branch 1130, Until Discontinu ed, Routine lisinopriL Yes 5mg 5 mg, Univer s (PRINIVIL,Z 12-14 Oral, ity of ESTRIL) 17:30: DAILY, [place] tablet 5 mg 00 First dose Me dical on [facility] 12/14/20 at 1130, Until Discontinu ed, Routine triamcinolo 2020- No [id number] Apply to [facility] 12-14 back, ity of acetonide 00:00: 00:00 armpits [place] 0.1 % cream 00 :00 and other Med ical affected Branch areas twice daily, please mix with clotrimazo le clotrimazol 2020- No [id number] Apply to Univers e 1 % 12-14 face/ears, ity of topical 00:00: 00:00 armpits, [place] cream 00 :00 pannus and Medical back/any Branch other rash twice a day fluocinonid 2020- No [id number] Apply to Univers e 0.05 % 12-14 scalp ity of solution 00:00: 00:00 twice a [place] 00 :00 day Medical Branch hydrOXYzine 2020- No [id number] 10mg Take 1 Univers 10 mg 12-14 [...] IV Push, ity of (PF)) 10:07: Q6HPRN, [place] injection 4 28 Starting Medi jose c mg 12/13/20 Branch at 0407, Until Discontinu ed, Routine, Nausea and Vomiting (N/V) ondansetron 2020- No 4mg 4 mg, Slow Univers (ZOFRAN 12-13-03 IV Push, ity of (PF)) 04:55: 05:44 ONCE, 1 [place] injection 4 00 :00 dose, [facility] ical mg 12/12/20 at Branch 2300, Routine traMADoL 2020- No 50mg 50 mg, Univer s (ULTRAM) 3 03-03 Oral, ity of tablet 50 03:45: 03:34 ONCE, 1 [place] mg 00 :00 dose, [facility] 12/12/20 at Branch 2145, Routine insulin Yes 15U 15 Units, Unive rs glargine 12-12 Subcutaneo ity o f (LANTUS 15:00: us, DAILY, [place] U-100) 00 First dose Medical injection on [facility] 15 Units 12/12/20 at 0900, Until Discontinu ed hydrOXYzine 2020- No 10mg 10 mg, Uni vers (ATARAX) 12-12 03-02 Oral, ity of tablet 10 08:15: 07:33 ONCE, 1 [place] mg 00 :00 dose, [facility] 12/12/20 at Branch 0215, Routine mirtazapine Yes 7.5mg 7.5 mg, Un toi (REMERON) 3-02 Oral, QHS, ity of tablet 7.5 03:00: First dose [place] mg 00 on [facility] 12/11/20 at Branch 2100, Until Discontinu ed, Routine venlafaxine Yes 300mg 300 mg, Un toi XR (EFFEXOR 3-02 Oral, QHS, it y of XR) 24 hr 03:00: First dose [place] capsule 300 00 on [facility] Medica l mg 12/11/20 at Branch 2100, Until Discontinu ed, Routine fluocinonid Yes Topical, Un toi e (LIDEX) 3 BID, First ity of 0.05 % 02:00: dose on [place] solution 00 Fri12/11/20 Medic al at 2000, Branch Until Discontinu ed, Routine acetaminoph 2020- No 1{tbl} 1 tablet, Univers en-codeine 12-11 03-05 Oral, ity of (TYLENOL 23:23: 13:49 Q6HPRN, [place] #3) 300-30 43 :08 Starting Medic al mg tablet 1 Fri12/11/20 Br anch tablet at 1723, Until Fri12/15/20 at 0749, Routine, Pain (scale 4-6) enoxaparin Yes 40mg 40 mg, Unive rs (LOVENOX) 12-11 Subcutaneo ity of injection 23:00: us, DAILY, [place] 40 mg 00 First dose Medical on Fri [place] 12/11/20 at 1700, Until Discontinu ed, Routine [...] insulin Yes 5U 5 Units, [facility] s lispro 12-11 Subcutaneo ity of (human) 18:00: us, TID [place] (HumaLOG 00 MEALS, Medical U-100) First dose Branch injection 5 on [facility] Units 12/11/20 at 1200, Until Discontinu ed Polyethylen Yes 17g 17 g, [facility] rs e Glycol 12-11 Oral, ity of 3350 17:47: [id number], [place] (MIRALAX) 05 Starting Medica l powder 17 g 12/11/20 Br anch at 1147, Until Discontinu ed, Routine, Constipati on acetaminoph Yes 650mg 650 mg, Un toi en 12-11 Oral, ity of (TYLENOL) 16:51: Q6HPRN, [place] tablet 650 28 Starting Medic al mg [...]
Duration of therapy: 72 hours sennosides- Yes [id number] 1{tbl} Take 1 [facility] docusate 2-09 tablet by ity of sodium 00:00: mouth 2 [place] 8.6-50 mg 00 (two) Medical per tablet times Branch daily. hydrocortis Yes [id number] Apply to [facility] one 2.5 % 11-21 affected ity of cream 00:00: area(s) 2 [place] 00 (two) Medical times Branch daily. blood sugar Yes [id number] Use to [facility] diagnostic 2 check ity of (FREESTYLE 00:00: blood [place] LITE 00 glucose Medical STRIPS) 4-5 times Branch strip daily. Polyethylen Yes [id number] 17g Take 1 Univers e Glycol 2-09 Packet by ity of 3350 17 00:00: mouth [place] gram powder 00 every 24 Medi jose c (twenty-fo Branch ur) hours as needed for Constipati on. sennosides- Yes [id number] 1{tbl} Take 1 Univers docusate 2-09 tablet by ity of sodium 00:00: mouth 2 [place] 8.6-50 mg 00 (two) Medical per tablet times Branch daily. hydrocortis 2020-0 Yes [id number] Apply to Univers one 2.5 % 2-09 affected ity of cream 00:00: area(s) 2 [place] 00 (two) Medical times Branch daily. blood sugar 2020-0 Yes [id number] Use to Univers diagnostic 11-21 check ity of (FREESTYLE 00:00: blood [place] LITE 00 glucose Medical STRIPS) 4-5 times Branch strip daily. Polyethylen 2020-0 Yes [id number] 17g Take 1 Univers e Glycol 2-09 Packet by ity of 3350 17 00:00: mouth [place] gram powder 00 every 24 Medi jose c (twenty-fo Branch ur) hours as needed for Constipati on. sennosides- 2020-0 Yes [id number] 1{tbl} Take 1 Univers docusate 2-09 tablet by ity of sodium 00:00: mouth 2 [place] 8.6-50 mg 00 (two) Medical per tablet times Branch daily. hydrocortis 2020-0 Yes [id number] Apply to Univers one 2.5 % 2-09 affected ity of cream 00:00: area(s) 2 [place] 00 (two) Medical times Branch daily. blood sugar 2020-0 Yes [id number] Use to [facility] diagnostic 11-21 check ity of (FREESTYLE 00:00: blood [place] LITE 00 glucose Medical STRIPS) 4-5 times Branch strip daily. Polyethylen 2020-0 Yes [id number] 17g Take 1 Univers e Glycol 2-09 Packet by ity of 3350 17 00:00: mouth [place] gram powder 00 every 24 Medi jose c (twenty-fo Branch ur) hours as needed for Constipati on. sennosides- 2020-0 Yes [id number] 1{tbl} Take 1 Univers docusate 2-09 tablet by ity of sodium 00:00: mouth 2 [place] 8.6-50 mg 00 (two) Medical per tablet times Branch daily. hydrocortis 2020-0 Yes [id number] Apply to Univers one 2.5 % 2-09 affected ity of cream 00:00: area(s) 2 [place] 00 (two) Medical times Branch daily. blood sugar Yes [id number] Use to [facility] diagnostic 11-21 check ity of (FREESTYLE 00:00: blood [place] LITE 00 glucose Medical STRIPS) 4-5 times Branch strip daily. Polyethylen Yes [id number] 17g Take 1 Univers e Glycol 11-21 Packet by ity of 3350 17 00:00: mouth [place] gram powder 00 every 24 Medi jose c (twenty-fo Branch ur) hours as needed for Constipati on. Insulin 2020- No [id number] 15U inject 15 Univers Glargine 11-21 Units ity of (LANTUS 00:00: 05:59 under the [place] SOLOSTAR 00 :00 skin every Medic al U-100 morning Branch INSULIN) for 30 100 unit/mL days. (3 mL) injection venlafaxine 2020- No [id number] 150mg Take 1 Univers XR 150 mg 11-21 capsule by ity of 24 hr 00:00: 05:59 mouth 3 [place] capsule 00 :00 (three) Medical times Branch daily for 30 days. Insulin 2020- No [id number] 15U inject 15 Univers Glargine 11-21 Units ity of (LANTUS 00:00: 05:59 under the [employer] SOLOSTAR 00 :00 skin every Medic al U-100 morning Branch INSULIN) for 30 100 unit/mL days. (3 mL) injection venlafaxine 2020- No [id number] 150mg Take 1 Univers XR 150 mg 11-21 capsule by ity of 24 hr 00:00: 05:59 mouth 3 [place] capsule 00 :00 (three) Medical times Branch daily for 30 days. triamcinolo 2020- No [id number] Apply to [facility] ne 11-21 area(s) 2 ity of acetonide 00:00: 00:00 (two) [place] 0.1 % cream 00 :00 times Medical daily. Branch cephALEXin 2020- No [id number] 1000mg Take 2 Univers 500 mg 11-21 capsules ity of capsule 00:00: 00:00 by mouth 3 [place] 00 :00 (three) Medical times Branch daily. doxycycline 2020- No [id number] 100mg Take 1 Univers hyclate 100 11-21 capsule by i ty of mg capsule 00:00: 00:00 mouth [place] 00 :00 every 12 Medical (twelve) Branch hours. lactobacill 2020- No [id number] 1{tbl} Take 1 Univers us 11-21 tablet by ity of acidophilus 00:00: 00:00 mouth 2 [place] 25 million 00 :00 (two) Medical cell -100 times Branch mg captab daily. bisacodyL 2020- No [id number] 10mg Insert 1 Univers 10 mg 11-21 Suppositor ity of suppository 00:00: 00:00 y into [place] 00 :00 rectum at Medical bedtime as Branch needed for Constipati on. ALPRAZolam 2020- No [id number] .25mg Take 1 Univers (XANAX) 11-21 tablet by ity of 0.25 mg 00:00: 00:00 mouth 2 [place] tablet 00 :00 (two) Medical times Branch daily. hydrOXYzine 2020- No [id number] 20mg Take 2 Univers 10 mg 11-21 [...] Units ity of (LANTUS 01:13: under the [place] SOLOSTAR) 36 skin. Medical 100 unit/mL Branch [...] Units ity of (LANTUS 01:13: under the [place] SOLOSTIN) 36 skin. Medical 100 unit/mL Branch (3 mL) InPn INSULIN 2019-10 Yes 5U inject 5 Univer s ASPART 1-12 Units ity of (NOVOLOG 01:13: under the [facility] s FLEXPEN SC) 36 skin. Medical Branch ALPRAZolam 2019-10 Yes .25mg Take 0.25 U nivers (XANAX) 1-12 mg by ity of 0.25 mg 01:13: mouth 2 [place] tablet 36 (two) Medical times Branch daily. HYDROmorpho 2019-10 Yes 4mg Take 4 mg U nivers ne 4 mg 1-12 by mouth 2 ity of tablet 01:13: (two) [place] 36 times Medical daily. Branch HYDROMORPHO 2019-10 [...] Units ity of (LANTUS 01:13: under the [place] SOLOSTIN) 36 skin. Medical 100 unit/mL Branch (3 mL) In INSULIN 2019- Yes 5U inject 5 Univer s ASPART 1-12 Units ity of (NOVOLOG 01:13: under the [facility] FLEXPEN SC) 36 skin. Medical Branch [...] 01:13: under the [facility]) 36 skin. Medical 100 unit/mL Branch (3 mL) In INSULIN 2019- Yes 5U inject 5 Univer s ASPART 1-12 Units ity of (NOVOLOG 01:13: under the [facility] FLEXPEN MT) 36 skin. Medical Branch ALPRAZolam [...] Units ity of (LANTUS 01:13: under the [place] SOLOSTAR) 36 skin. Medical 100 unit/mL Branch (3 mL) InPn INSULIN 2019-10 Yes 5U inject 5 Univer s ASPART 1-12 Units ity of (NOVOLOG 01:13: under the [facility] s FLEXPEN SC) 36 skin. [...] Units ity of (LANTUS 01:13: under the [place] SOLOSTAR) 36 skin. Medical 100 unit/mL Branch [...] 34 :00 Medical Branch hydrocortis 2019- Yes [id number] Apply to Univers one 2.5 % 1-11 affected ity of cream 00:00: area(s) 2 [place] (two) Medical times Branch daily. hydrOXYzine 2019-10 Yes [id number] 20mg Take 2 Univers 10 mg 1-11 tablets by ity of tablet 00:00: mouth [place] 00 every 8 Medical (eight) Branch hours as needed for Itching or Anxiety. Polyethylen 2019-10 Yes [id number] 17g Take 1 Univers e Glycol 1-11 Packet by ity of 3350 17 00:00: mouth [place] gram powder 00 every 24 Medi jose c (twenty-fo Branch ur) hours as needed for Constipati on. hydrocortis 2019-10 Yes [id number] Apply to Univers one 2.5 % 1-11 affected ity of cream 00:00: area(s) 2 [place] (two) Medical times Branch daily. hydrOXYzine 2019- Yes [id number] 20mg Take 2 Univers 10 mg 1-11 tablets by ity of tablet 00:00: mouth [place] 00 every 8 Medical (eight) Branch hours as needed for Itching or Anxiety. Polyethylen 2019- Yes [id number] 17g Take 1 Univers e Glycol 1-11 Packet by ity of 3350 17 00:00: mouth [place] gram powder 00 every 24 Medi jose c (twenty-fo Branch ur) hours as needed for Constipati on. hydrocortis 2019- Yes [id number] Apply to Univers one 2.5 % 1-11 affected ity of cream 00:00: area(s) 2 [place] 00 (two) Medical times Branch daily. hydrOXYzine 2019- Yes [id number] 20mg Take 2 Univers 10 mg 1-11 tablets by ity of tablet 00:00: mouth [place] 00 every 8 Medical (eight) Branch hours as needed for Itching or Anxiety. Polyethylen 2020- Yes [id number] 17g Take 1 Univers e Glycol 1-11 Packet by ity of 3350 17 00:00: mouth [place] gram powder 00 every 24 Medi jose c (twenty-fo Branch ur) hours as needed for Constipati on. hydrocortis 2019- Yes [id number] Apply to Univers one 2.5 % 1-11 affected ity of cream 00:00: area(s) 2 [place] 00 (two) Medical times Branch daily. hydrOXYzine 2019- Yes [id number] 20mg Take 2 Univers 10 mg 1-11 tablets by ity of tablet 00:00: mouth [place] 00 every 8 Medical (eight) Branch hours as needed for Itching or Anxiety. Polyethylen 2019- Yes [id number] 17g Take 1 Univers e Glycol 1-11 Packet by ity of 3350 17 00:00: mouth [place] gram powder 00 every 24 Medi jose c (twenty-fo Branch ur) hours as needed for Constipati on. hydrocortis 2019- Yes [id number] Apply to Univers one 2.5 % 1-11 affected ity of cream 00:00: area(s) 2 [place] 00 (two) Medical times Branch daily. hydrOXYzine 2019- Yes [id number] 20mg Take 2 Univers 10 mg 1-11 tablets by ity of tablet 00:00: mouth [place] 00 every 8 Medical (eight) Branch hours as needed for Itching or Anxiety. Polyethylen 2019- Yes [id number] 17g Take 1 Univers e Glycol 1-11 Packet by ity of 3350 17 00:00: mouth [place] gram powder 00 every 24 Medi jose c (twenty-fo Branch ur) hours as needed for Constipati on. hydrocortis 2019- Yes [id number] Apply to Univers one 2.5 % 1-11 affected ity of cream 00:00: area(s) 2 [place] 00 (two) Medical times Branch daily. hydrOXYzine 2019- Yes [id number] 20mg Take 2 Univers 10 mg 1-11 tablets by ity of tablet 00:00: mouth [place] 00 every 8 Medical (eight) Branch hours as needed for Itching or Anxiety. Polyethylen 2020- Yes [id number] 17g Take 1 Univers e Glycol 1-11 Packet by ity of 3350 17 00:00: mouth [place] gram powder 00 every 24 Medi jose c (twenty-fo Branch ur) hours as needed for Constipati on. hydrocortis 2019-10 Yes [id number] Apply to [facility] one 2.5 % 1-11 affected ity of cream 00:00: area(s) 2 [place] 00 (two) Medical times Branch daily. hydrOXYzine 2019-10 Yes [id number] 20mg Take 2 Univers 10 mg 1-11 tablets by ity of tablet 00:00: mouth [place] 00 every 8 Medical (eight) Branch hours as needed for Itching or Anxiety. Polyethylen 2019-10 Yes [id number] 17g Take 1 Univers e Glycol 1-11 Packet by ity of 3350 17 00:00: mouth [place] gram powder 00 every 24 Medi jose c (twenty-fo Branch ur) hours as needed for Constipati on. triamcinolo 2019-10 2020- No [id number] Apply to [facility] 10-23 area(s) 2 ity of acetonide 00:00: 05:59 (two) [place] 0.1 % cream 00 :00 times Medical daily for Branch 14 days. triamcinolo 2019-10 2020- No [id number] Apply to [facility] 10-23 area(s) 2 ity of acetonide 00:00: 05:59 (two) [place] 0.1 % cream 00 :00 times Medical daily for Branch 14 days. triamcinolo 2019-10 2020- No [id number] Apply to [facility] 10-23 area(s) 2 ity of acetonide [...] Areas), Medical BID, First Branch dose on [facility] 08/21/20 at 2000, Until Discontinu ed, Routine triamcinolo 2019- Yes Topical, Un toi ne 1-10 BID, First ity of acetonide 02:00: dose on [place] (TRIDERM) 00 [facility] Medical 0.1 % cream 08/21/20 at Br anch 2000, Until Discontinu ed, Routine hydrOXYzine 2019-10 Yes 20mg 20 mg, Univ ers (ATARAX) 09 Oral, ity of tablet 20 17:39: Q8HPRN, [place] mg 12 Starting Medical [facility] Branch 08/21/20 at 1139, Until Discontinu ed, Routine, Itching, Anxiety sennosides- 2019-10 Yes 1{tbl} 1 tablet, Univers docusate 10-21 Oral, ity of sodium 15:00: DAILY, [place] (SENOKOT-S) 00 First dose Me dical 8.6-50 mg on [facility] Branch per tablet 08/21/20 at 1 tablet 0900, Until Discontinu ed, Routine hydrocortis 2019-10 2020- No Topical Un toi one 1 % 10-21 (Apply To ity of cream 15:00: 22:54 Affected [place] 00 :48 Areas), Medical DAILY, Branch First dose on Fri08/21/20 at 0900, Until Discontinu ed, Routine venlafaxine 2019-10 Yes 150mg 150 mg, Un toi XR (EFFEXOR 09 Oral, TID, it y of XR) 24 hr 14:00: First dose [place] capsule 150 00 on [facility] Medica l mg 08/21/20 at Branch 0800, Until Discontinu ed, Routine heparin 2019- Yes 5000U 5,000 Univers (porcine) -09 Units, ity of injection 14:00: Subcutaneo [place] 5,000 Units 00 us, Q12H, Med ical First dose Branch on [facility] 08/21/20 at 0800, Until Discontinu ed, Routine diphenhydrA 2019-10 2020- No 25mg 25 mg, Uni vers MINE 10-21 Oral, ity of (BENADRYL) 12:56: 17:39 Q8HPRN, [place] tablet 25 59 :43 Starting Medica l mg [facility] 08/21/20 at 0656, Until [facility] 08/21/20 at 1139, Routine, Itching, Mild Rash, Congestion /Allergies , alternate with hydroxyzin e hydrOXYzine 2019-10- No 10mg 10 mg, Uni vers (ATARAX) 10-21 Oral, ity of tablet 10 10:20: 12:57 Q6HPRN, [place] mg 22 :12 Starting [facility] 08/21/20 at 0420, Until [facility] 08/21/20 at 0657, Routine, Itching, Anxiety Sliding 2019-10 Yes Subcutaneo Univ ers Scale 09 us, Q4H, ity of Insulin - 10:00: [place] Aspart 00 (after Medical (NOVOLOG) + last Branch Fsbg modificati Testing on) on [facility] 08/21/20 at 0400, Until Discontinu ed, Routine lidocaine 5 2019-10- No Topical, U nivers % ointment 10-21 ONCE, 1 ity o f 09:30: 09:14 dose, [facility] 00 :00 08/21/20 at [facility] 0330, Branch Routine Polyethylen 2019-10 Yes 17g 17 g, [facility] rs e Glycol 10-21 Oral, ity of 3350 08:29: P40ZUGU, [place] (MIRALAX) 09 Starting Medica l powder [address] [facility] 08/21/20 at 0229, Until Discontinu ed, Routine, Constipati on lanolin 2019-10 Yes Topical, Univer s alcohol-mo- 10-21 PRN, ity of w.pet-ceres 08:26: [place] (EUCERIN[place] 30 [facility] cream 08/21/20 at Branch 0226, Until Discontinu ed, Routine, Dermatitis /Rash ALPRAZolam 2019-10 Yes .25mg 0.25 mg, Un toi (XANAX) 10-21 Oral, ity of tablet 0.25 08:25: BIDPRN, [place] as mg 41 Starting [facility] 08/21/20 at 0225, Until Discontinu [...] (scale 1-3) sotalol 2019-10- No [facility] (BETAPACE) 10-21 mouth ity of 240 mg 07:43: 00:00 every 12 [place] tablet 30 :00 (twelve) Medical hours. Branch blood sugar Yes Use to [employer] ers diagnostic 4-25 check ity of (FREESTYLE 00:00: blood [place] LITE 00 glucose Medical STRIPS) 4-5 times Branch strip daily. blood sugar Yes Use to [employer] ers diagnostic -25 check ity of (FREESTYLE 00:00: blood [place] LITE 00 glucose Medical STRIPS) 4-5 times Branch strip daily. blood sugar Yes Use to [employer] ers diagnostic -25 check ity of (FREESTYLE 00:00: blood [place] LITE 00 glucose Medical STRIPS) 4-5 times Branch strip daily. blood sugar Yes Use to [employer] ers diagnostic -25 check ity of (FREESTYLE 00:00: blood [place] LITE 00 glucose Medical STRIPS) 4-5 times Branch strip daily. blood sugar Yes Use to [employer] ers diagnostic -25 check ity of (FREESTYLE 00:00: blood [place] LITE 00 glucose Medical STRIPS) 4-5 times Branch strip daily. blood sugar Yes Use to [facility] ers diagnostic 4-25 check ity [...] 13:00:00 148 mm[Hg] Univer sity of pressure [place] [facility] Diastolic blood 2021-08-22 13:00:00 84 mm[Hg] Unive rsity of pressure [facility] Heart rate 2021-08-22 13:00:00 103 /min [facility] Respiratory rate 2021-08-22 13:00:00 18 /min Univ ersity of [facility] Oxygen saturation in 2021-08-22 13:00:00 95 /min University of Arterial blood by [facility] Pulse oximetry Branch Body temperature 2021-08-22 12:22:00 36.72 [place] [facility] ersity of [facility] Branch Systolic blood 2020-12-17 18:35:00 139 mm[Hg] Univer sity of pressure [place] [facility] Diastolic blood 2020-12-17 18:35:00 87 mm[Hg] Unive rsity of pressure [place] [facility] [place] Heart rate 2020-12-17 18:35:00 110 /min [facility] Body temperature 2020-12-17 18:35:00 37.72 [place] [facility] ersity of [place] [facility] Respiratory rate 2020-12-17 18:35:00 18 /min Univ ersity of [place] [facility] Oxygen saturation in 2020-12-17 18:35:00 93 /min University of Arterial blood by [facility] Pulse oximetry Branch Body height 2020-12-12 08:21:00 180.3 cm [facility] Body weight 2020-12-12 08:21:00 103.42 kg [facility] BMI 2020-12-12 08:21:00 31.80 kg/m2 [facility] Systolic blood 2020-12-17 18:35:00 139 mm[Hg] Univer sity of pressure [place] [facility] Diastolic blood 2020-12-17 18:35:00 87 mm[Hg] Unive rsity of pressure [place] [facility] Heart rate 2020-12-17 18:35:00 110 /min Universi ty of [place] [facility] [place] Body temperature 2020-12-17 18:35:00 37.72 [place] Univ ersity of [place] [facility] Respiratory rate 2020-12-17 18:35:00 18 /min Univ ersity of [place] [facility] Oxygen saturation in 2020-12-17 18:35:00 93 /min University of Arterial blood by [place] Dr [employer] jose [facility] Pulse oximetry Branch Body height 2020-12-12 08:21:00 180.3 cm Universi ty of [place] [facility] [place] Body weight 2020-12-12 08:21:[address] [facility] BMI 2020-12-12 08:21:00 31.80 kg/m2 Universi ty of [place] [facility] Systolic blood 2020-08-23 19:27:00 140 mm[Hg] Univer sity of pressure [place] [facility] Diastolic blood 2020-08-23 19:27:00 79 mm[Hg] Unive rsity of pressure [place] [facility] Heart rate 2020-08-23 19:27:00 99 /min Universi ty of [facility] Body temperature 2020-08-23 19:27:00 36 [place] Univ ersity of [place] [facility] Respiratory rate 2020-08-23 19:27:00 18 /min Univ ersity of [place] [facility] Oxygen saturation in 2020-08-23 19:27:00 93 /min University of Arterial blood by [place] Dr [employer] jose [facility] Pulse oximetry Branch Body weight 2020-08-21 07:20:00 104.962 kg Universi ty of [place] [facility] BMI 2020-08-21 07:20:00 32.27 kg/m2 Universi ty of [place] [facility] Systolic blood 2020-08-23 19:27:00 140 mm[Hg] Univer sity of pressure [place] [facility] Diastolic blood 2020-08-23 19:27:00 79 mm[Hg] Unive rsity of pressure [place] [facility] Heart rate 2020-08-23 19:27:00 99 /min Universi ty of [place] [facility] Body temperature 2020-08-23 19:27:00 36 [place] [facility] Respiratory rate 2020-08-23 19:27:00 18 /min [facility] Oxygen saturation in 2020-08-23 19:27:00 93 /min [facility] Arterial blood by [facility] Pulse oximetry [place] Body weight 2020-08-21 07:20:00 104.962 kg [facility] BMI 2020-08-21 07:20:00 32.27 kg/m2 [facility] Procedures Procedure Date / Time Performing Clinician Source Performed POCT GLUCOSE (AUTOMATED) 2020-12-17 15:42:00 Harrison, [facility] METABOLIC PANEL 2020-12-17 10:45:00 Paul Bean [facility] (NA, K, CL, CO2, GLUCOSE, [facility] Medica l Branch BUN, CREATININE, CA) CBC WITH DIFF 2020-12-17 10:45:00 Paul Bean [facility] POCT GLUCOSE (AUTOMATED) 2020-12-17 02:36:00 Harrison, Premal G Uni [facility] XR TIBIA FIBULA 2 VW LEFT 2020-12-16 23:38:[address] [facility] POCT GLUCOSE (AUTOMATED) 2020-12-16 23:20:00 Harrison, Premal [facility] POCT GLUCOSE (AUTOMATED) 2020-12-16 20:10:00 Harrison, Premal [facility] POCT GLUCOSE (AUTOMATED) 2020-12-16 14:43:00 Harrison, Premal [facility] BASIC METABOLIC PANEL 2020-12-16 13:51:00 Paul Bean [facility] (NA, K, CL, CO2, GLUCOSE, [place] [facility] Branch BUN, CREATININE, CA) CBC WITH DIFF 2020-12-16 13:51:00 Paul Bean [facility] POCT GLUCOSE (AUTOMATED) 2020-12-16 04:00:00 Harrison, Premal [facility] POCT GLUCOSE (AUTOMATED) 2020-12-16 00:14:00 Harrison, Premal G Uni versity of [facility] CT CHEST PULMONARY 2020-12-15 22:29:38 Paul Bean [facility] ANGIOGRAM [facility] POCT GLUCOSE (AUTOMATED) 2020-12-15 19:26:00 Harrison, Premal G Uni versity of [facility] POCT GLUCOSE (AUTOMATED) 2020-12-15 15:13:00 Harrison, Premal G Uni versity of [facility] HB ECG ROUTINE & RHYTHM 2020-12-15 14:25:27 Cailin Romo [facility] Branch MAGNESIUM 2020-12-15 12:01:00 Paul Bean Sivakumar [facility] BASIC METABOLIC PANEL 2020-12-15 12:01:00 Paul Bean [facility] (NA, K, CL, CO2, GLUCOSE, [place] [facility] BUN, CREATININE, CA) CBC WITH DIFF 2020-12-15 12:01:00 Paul Bean Sivakumar [facility] POCT GLUCOSE (AUTOMATED) 2020-12-15 03:57:00 Harrison, Premal G Uni versity of [facility] POCT GLUCOSE (AUTOMATED) 2020-12-14 23:31:00 Harrison, Premal G Uni versity of [facility] POCT GLUCOSE (AUTOMATED) 2020-12-14 19:08:00 Harrison, Premal G Uni versity of [facility] POCT GLUCOSE (AUTOMATED) 2020-12-14 15:11:00 Harrison, Premal G Uni versity of [facility] POCT GLUCOSE (AUTOMATED) 2020-12-14 02:36:00 Harrison, Premal G Uni versity of [facility] POCT GLUCOSE (AUTOMATED) 2020-12-13 23:32:00 Harrison, Premal G Uni versity of [facility] POCT GLUCOSE (AUTOMATED) 2020-12-13 18:08:00 Harrison, Premal G Uni versity of [facility] BASIC METABOLIC PANEL 2020-12-13 15:39:00 Paul Bean [facility] (NA, K, CL, CO2, GLUCOSE, [place] [facility] BUN, CREATININE, CA) CBC WITH DIFF 2020-12-13 15:39:00 Paul Bean Sivakumar [facility] POCT GLUCOSE (AUTOMATED) 2020-12-13 14:06:00 Harrison, Premal [facility] POCT GLUCOSE (AUTOMATED) 2020-12-13 03:07:00 Harrison, Premal [facility] POCT GLUCOSE (AUTOMATED) 2020-12-12 23:52:00 Harrison, Premal G [facility] POCT GLUCOSE (AUTOMATED) 2020-12-12 20:28:00 Harrison, Premal [facility] POCT GLUCOSE (AUTOMATED) 2020-12-12 19:14:00 Harrison, Premal G [facility] POCT GLUCOSE (AUTOMATED) 2020-12-12 14:33:00 Harrison, Premal G [facility] MAGNESIUM 2020-12-12 08:58:00 Paul Bean Sivakumar [facility] BASIC METABOLIC PANEL 2020-12-12 08:58:00 Paul Bean [facility] (NA, K, CL, CO2, GLUCOSE, [place] Medica l Branch BUN, CREATININE, CA) CBC WITH DIFF 2020-12-12 08:58:00 Paul Bean Sivakumar [facility] US ABDOMEN LIMITED 2020-12-12 06:32:26 [facility] POCT GLUCOSE (AUTOMATED) 2020-12-12 03:40:00 Harrison, Premal G Uni [facility] POCT GLUCOSE (AUTOMATED) 2020-12-12 00:06:00 Harrison, Premal G Uni [facility] XR HIPS 3 VW LEFT 2020-12-11 20:20:00 Darnell Beanaham Sivakumar [facility] HB ECG ROUTINE & RHYTHM 2020-12-11 20:04:06 Cailin Romo [facility] VITAMIN B6, PLASMA 2020-12-11 19:17:00 [facility] POCT GLUCOSE (AUTOMATED) 2020-12-11 19:06:00 Rene Harrison [facility] CREATINE KINASE 2020-12-11 18:22:00 Clarisse Hannon [facility] VITAMIN B12, LEVEL 2020-12-11 18:22:00 Paul Bean [facility] FOLATE 2020-12-11 18:22:[address] [facility] THYROID STIMULATING 2020-12-11 18:22:00 Cailin Romo [facility] HORMONE [facility] PROCALCITONIN 2020-12-11 18:22:[address] [facility] VITAMIN B1 (THIAMINE), 2020-12-11 18:22:00 Paul Bean Sivakumar [facility] WHOLE BLOOD [facility] CT HEAD WO CONTRAST 2020-12-11 14:07:35 Sweetie Stout [facility] URINALYSIS 2020-12-11 13:44:00 Singer [facility] URINE CULTURE 2020-12-11 13:44:00 [facility] COVID-19 (ID NOW RAPID 2020-12-11 12:31:00 Paco Lacey [facility] TESTING) [facility] LAB ONLY COVID 2020-12-11 12:31:00 Singer [facility] XR CHEST 1 VW 2020-12-11 12:07:24 Singer [facility] BLOOD CULTURE SCREEN 2020-12-11 12:02:00 Paco Lacey [facility] MAGNESIUM 2020-12-11 12:02:00 Paul Bean Sivakumar [facility] FERRITIN SERUM 2020-12-11 12:02:00 Darnell Beanaham Sivakumar [facility] COMP. METABOLIC PANEL 2020-12-11 12:02:[address] [facility] ([id number]) Medical Branch CBC WITH DIFF 2020-12-11 12:02:00 Singer [facility] LACTIC ACID WHOLE BLOOD 2020-12-11 12:02:00 Paco Lacey [facility] BLOOD CULTURE SCREEN 2020-12-11 11:42:00 Paco Lacey [facility] EMERGENCY SERVICES 2020-12-11 06:01:[address] [facility] AGREEMENTS AND [place] [facility] AUTHORIZATIONS HOSPITAL ADMISSION 2020-12-11 06:01:00 Doctor Tabitha [facility] Name Medical [facility] HEALTH - OTHER 2020-11-11 06:01:00 Doctor Tabitha [facility] [place] Medical [facility] HEALTH - OTHER 2020-10-30 06:01:00 Doctor Tabitha [facility] Name Medical [place] EXTERNAL PROVIDER RECORDS 2020-09-01 06:01:00 Doctor Tabitha [facility] Name [facility] POCT GLUCOSE (AUTOMATED) 2020-08-23 18:09:00 Kelly Washington [facility] POCT GLUCOSE (AUTOMATED) 2020-08-23 14:14:00 Kelly Washington [facility] MAGNESIUM 2020-08-23 11:18:00 [facility] BASIC METABOLIC PANEL 2020-08-23 11:18:00 [facility] (NA, K, CL, CO2, GLUCOSE, Medica l Branch BUN, CREATININE, CA) CBC WITH DIFF 2020-08-23 11:18:00 [facility] POCT GLUCOSE (AUTOMATED) 2020-08-23 10:21:00 [facility] PO[facility] ([facility]OMATED) 2020-08-23 05:55:00 Kelly Washington [facility] POCT GLUCOSE (AUTOMATED) 2020-08-23 03:00:00 Kelly Washington [facility] POCT GLUCOSE (AUTOMATED) 2020-08-22 23:38:00 Kelly Washington [facility] POCT GLUCOSE (AUTOMATED) 2020-08-22 19:04:00 Kelly Washington [facility] POCT GLUCOSE (AUTOMATED) 2020-08-22 13:49:00 Kelly Washington [facility] MAGNESIUM 2020-08-22 10:10:00 [facility] 2020-08-22 10:10:00 Jill Aguila [facility] ([id number]) (ALB,T.PRO,BILI Medical Branch T,BU/BC,ALT,AST,ALK PHOS) BASIC METABOLIC PANEL 2020-08-22 10:10:00 [place], [facility] (NA, K, CL, CO2, GLUCOSE, Medica l Branch BUN, CREATININE, CA) LIPID PANEL ([id number])(TOTAL 2020-08-22 10:10:00 [place], [facility] TRIGLYCERIDES, HDL) CBC WITH DIFF 2020-08-22 10:10:00 [facility] POCT GLUCOSE (AUTOMATED) 2020-08-22 10:10:00 Kelly [facility] ETH[facility]OL 2020-08-21 12:35:00 Jos Quiroz [facility] ACTIVATED PARTIAL 2020-08-21 12:35:00 Padmini [facility] THRMPLAS [facility] GALV ONLY - SYPHILIS 2020-08-21 12:35:00 Padmini Kelly [facility] IGG/IGM [facility] LACTATE DEHYDROGENASE 2020-08-21 10:09:00 Ramya, [facility] GALV/CLC ONLY - URINE 2020-08-21 10:09:[address] [facility] DRUG (IMMUNOASSAY) - 4 ER Medica l Branch PANEL URINALYSIS 2020-08-21 10:09:00 [place], [facility] URINE CULTURE 2020-08-21 10:09:00 [place], [facility] PROCALCITONIN 2020-08-21 10:09:00 [place], [facility] POCT GLUCOSE (AUTOMATED) 2020-08-21 09:41:00 Kelly Washington [facility] PROTHROMBIN TIME / INR 2020-08-21 08:32:00 Ramya, [facility] ACTIVATED PARTIAL 2020-08-21 08:32:00 [place], [facility] THRMPLAS [facility] C-REACTIVE PROTEIN 2020-08-21 08:31:00 Ramya, [facility] HEPATIC FUNCTION PANEL 2020-08-21 08:31:00 [place], [facility] ([id number]) (ALB,T.PRO,BILI [facility] Branch T,BU/BC,ALT,AST,ALK PHOS) BASIC METABOLIC PANEL 2020-08-21 08:31:00 Ramya, [facility] (NA, K, CL, CO2, GLU[facility]SE, [facility] [place] BUN, CREATININE, CA) SEDIMENTATION RATE 2020-08-21 08:31:00 Ramya, [facility] CBC WITH DIFF 2020-08-21 08:31:00 [place], [facility] GLYCOSYLATED HEMOGLOBIN 2020-08-21 08:31:00 [place], [facility] (A1C) [facility] HIV 1/2 AG-AB WITH REFLEX 2020-08-21 08:31:00 [facility] (ID NOW RAPID 2020-08-21 08:20:00 [place], [facility] TESTING) Medical Branch LAB ONLY COVID 2020-08-21 08:20:00 Ramya, [facility] o f [facility] Encounters Start End Encounter Admission Attending Care Care Encounter Source Date/Time Date/Time Type Type Clinicians Facility Department ID 2020-08-21 Inpatient Shayy WASHINGTON [facility] KVNG [id number] Univers 01:07:00 KELLY cantu [facility] 2021-08-22 2021-08-22 Emergency X [facility] ERT [id number] Univers 06:21:00 08:02:00 SWEETIE cantu [facility] 2021-08-22 2021-08-22 Emergency [facility] [id number] Univers 06:21:00 08:02:00 Sweetie OREN [id number] i ty of [place] 4[place]2.7.2.[place] [id number] [facility] 084 Branch 2021-08-09 2021-08-09 Outpatient ZAK[facility] [id number] [facility] 10:27:03 10:27:03 ADRIANA lopez of Medicin e 2020-12-28 2020-12-[address] [facility] [id number] 00:00:00 00:00:00 Calvin H PRIMARY [id number] CARE [id number] PAVILLION [id number] 2020-12-28 2020-12-[address] [facility] [id number] Univers 00:00:00 00:00:00 Calvin H PRIMARY [id number] it y of CARE [id number] [place] [facility] [id number] Fl dical 220 Branch 2020-12-19 2020-12-19 Transition Tuan Peters 1.2.840.114 [id number] 00:00:00 00:00:00 of Care Ruchi Braswell [id number] [place] 4.2.7.2.686 [id number] 2020-12-19 2020-12-19 Transition Tuan Peters 1.2.840.114 [id number] Univers 00:00:00 00:00:00 of Care Ruchi Braswell [id number] it y of [place] 4[place]2.7.2.686 [place] [id number] [facility] 403 Branch 2020-12-11 2020-12-17 [facility] Paco Lacey 1.2.840.1 [id number] 05:11:00 16:00:00 Encounter Rene Harrisony [id number] [facility] 4.2.7.2.686 [id number] [facility] 2020-12-11 2020-12-17 [facility] 1.2.840.1 [id number] [facility] 05:11:00 16:00:00 Encounter Rene Harrison [id number] ity of [facility] 4.2.7.2.686 [place] [id number] [facility] 096 [place] 2020-12-11 2020-12-11 Emergency X [facility]RT [id number] Univers 05:11:00 05:11:00 [facility] 2020-11-16 2020-11-16 Emergency X [facility] ERT [id number] Univers 09:31:00 09:31:00 [facility] 2020-11-11 2020-11-11 Orders Doctor BASILIA 1.2.840.114 [id number] 00:00:00 00:00:00 Only Unassigned, MONIQUE [id number] [place] [facility] 4.2.7.2.686 [id number] 009 2020-11-11 2020-11-11 Orders Doctor BASILIA 1.2.840.114 [id number] Univers 00:00:00 00:00:00 Only Unassigned, MONIQUE [id number] ity of [place] [facility] 4.2.7.2.686 Jeff as [id number] [facility] 009 [place] 2020-11-07 2020-11-07 Telephone Wilder [facility] [id number] 00:00:00 00:00:00 Angi Bosch [place] [id number] [place] 4.2.7.2.686 Professio [id number] [address] 2020-11-07 2020-11-07 Telephone Hdz [facility] [id number] [facility] 00:00:00 00:00:00 Sendil Danitza [place] [id number] ity of [place] 4.2.7.2.686 [place] Professio [id number] [address] 2020-10-30 2020-10-30 Orders Doctor BASILIA 1.2.840.114 [id number] 00:00:00 00:00:00 Only Unassigned, MONIQUE [id number] [place] [facility] 4.2.7.2.686 [id number] [facility] 2020-10-30 2020-10-30 Orders Doctor CUI 1.2.840.114 [id number] Univers 00:00:00 00:00:00 Only Unassigned, MONIQUE [id number] ity of [place] [facility] 4.2.7.2.686 Jeff as [phone] [address] 2020-09-26 2020-09-26 Telephone [facility] 1.2.840.114 [id number] 00:00:00 00:00:00 [facility] [id number] CLINICS 4.2.7.2.686 [id number] [facility] 2020-09-26 2020-09-26 Telephone [facility] 1.2.840.114 [id number] Univers 00:00:00 00:00:00 [facility] [id number] i ty of CLINICS 4[place]2.7.2.[place] [phone] [address] 2020-09-01 2020-09-01 Orders Doctor CUI 1.2.840.114 [id number] 00:00:00 00:00:00 Only Unassigned, MONIQUE 350.1.13.10 [place] [facility] 4.2.7.2.686 [id number] [id number] 2020-09-01 2020-09-01 Orders Doctor BASILIA 1.2.840.114 [id number] Univers 00:00:00 00:00:00 Only Unassigned, MONIQUE [id number] ity of [place] [facility] 4.2.7.2.686 Jeff as [id number] [facility] 009 Branch 2020-08-25 2020-08-25 Transition Tuan Peters 1.2.840.114 [id number] 00:00:00 00:00:00 of Care Ruchi Braswell 350.1.13.10 [place] [id number] [facility] 2020-08-25 2020-08-25 Transition Tuan Peters 1.2.840.114 [id number] [facility] 00:00:00 00:00:00 of Care Ruchi Garciay [id number] it y of [place]2.7.2.686 [place] [id number] [address] 2020-08-21 2020-08-23 [facility] Ayleen 1.2.840.114 [id number] 01:07:00 18:35:00 Encounter Kelly Amaya [id number] [facility] 4.2.7.2.686 [id number] [facility] 2020-08-21 2020-08-23 [facility]yleen 1. 2.840.114 [id number] [facility] 01:07:00 18:35:00 Encounter Mukul Gallardo BebaSarbjit Amaya 350.1.13. 10 ity [facility] 4.2.7.2.686 Jeff as [id number] [address] Results Test Description Test Time Test Comments Results Result Comments Source POCT GLUCOSE (AUTOMATED) 2020-12-17 15:43:35 Test Item Value Reference Range Interpretation Comme nts POCT GLU (test code = 9865082602) 129 mg/dL 70-110 H Lab Interpretation (test code = 04617-0) Abnormal [facility] [place] [facility] METABOLIC PANEL (NA, K, CL, CO2, GLUCOSE, BUN, CREATININE, CA)2020-12-17 11:45:07 Test Item Value Reference Range Interpretation Comments NA (test code = 137 mmol/L 135-145 7560883212) K (test code = 3.5 mmol/L 3.5-5.0 6684215112) CL (test code = 103 mmol/L 98-108 0117659388) CO2 TOTAL (test code = 26 mmol/L 23-31 4695697747) AGAP (test code = 2-16 7712770088) BUN (test code = 11 mg/dL 7-23 7420659776) GLUCOSE (test code = 175 mg/dL 70-110 H 1470490656) CREATININE (test code = 0.62 mg/dL 0.60-1.25 7359379496) CALCIUM (test code = 9.0 mg/dL 8.6-10.6 3115262269) eGFR Calculation mL/min/1.73m2 (Non-) (test code = 0575808898) eGFR Calculation mL/min/1.73m2 () (test code = 6970664767) JAMES (test code = JAMES) Association of [...] tests). Lab Interpretation Abnormal (test code = 75790-7) [facility] WITH [id number] 11:07:27 Test Item Value Reference Range Interpretation [...] RDW-SD (test code = 45.2 fL 38.5-51.6 44662-1) RDW-CV (test code = 16.9 % 12.1-15.4 H 788-0) PLT (test code = See_Comment H [Automated 777-3) message] The sy stem which generated this result transmitted reference range : 150 - 328 10*3/ ?L. The reference r torito was not used to interpret this result as normal/abnormal . MPV (test code = 8.1 fL 9.8-13.0 L 45721-2) NRBC/100 WBC (test See_Comment [Automat ed code = 7184747445) message] The system which generated this result transmitted reference range : 0.0 - 10.0 /100 WBCs. The refer ence range was not u sed to interpret th is result as normal/abnormal . NRBC x10^3 (test code <0.01 See_Comment [Auto mated = 8521160941) message] The s ystem which generated this result transmitted reference range : 10*3/?L. The reference range was not used to interpret this result as normal/abnormal . GRAN MAT (NEUT) % 72.8 % (test code = 770-8) IMM GRAN % (test code 0.60 % = 4629414971) LYMPH % (test code = 18.4 % 736-9) MONO % (test code = 5.7 % 5905-5) EOS % (test code = 1.8 % 713-8) BASO % (test code = 0.7 % 706-2) GRAN MAT x10^3(ANC) 8.23 10*3/uL 1.99-6.95 H (test code = 2150209621) IMM GRAN x10^3 (test 0.07 10*3/uL 0.00-0.06 H code = 9631225332) LYMPH x10^3 (test code 2.08 10*3/uL 1.09-3.23 = 731-0) MONO x10^3 (test code 0.65 10*3/uL 0.36-1.02 = 742-7) EOS x10^3 (test code = 0.20 10*3/uL 0.06-0.53 711-2) BASO x10^3 (test code 0.08 10*3/uL 0.01-0.09 = 704-7) Lab Interpretation Abnormal (test code = 75177-7) [facility]17 06:03:38 Test Item Value Reference Range Interpretation Comments POCT GLU (test code = 3994311666) 75 mg/dL 70-110 Lab Interpretation (test code = Normal 82623-3) [facility], [id number] 00:01:00 Test Item Value Reference Range Interpretation Comments VIT B6 (test code = 13.1 nmol/L 20.0-125.0 L INTERPRE TIVE 73805-1) INFORMATION: Vi tamin B6 (Pyridoxal 5-Phosphate) Pyridoxal 5'-phosphate me asured in a specimen collected follo wing an 8-hour or overnight fast accurately clara cates vitamin B6 nutritional sta tus. Non-fasting spe cimen concentration reflects recent vitamin intake. This test was develo ped and its perform ance characteristics determined by [facility]. I t has not been cleare d or approved by the [place] Food and Drug Administration. This test was perfor med in a CLIA certifie d laboratory and is intended for cl inical purposes.Perfor med By: [facility] [place] [address] [id number] Director: Namrata Klein MD Lab Interpretation Abnormal (test code = 84864-3) [facility] TIBIA FIBULA 2 VW [id number] 23:57:09 Tricompartmental knee joint osteoarthrosis.XR TIBIA FIBULA [...] No acute fracture or dislocation.IMPRESSIONTricompartmental knee joint osteoarthrosis.[facility] GLUCOSE (AUTOMATED) 2020-12-16 23:27:00 Test Item Value Reference Range Interpretation Comments POCT GLU (test code = 2571515358) 114 mg/dL 70-110 H Lab Interpretation (test code = Abnormal 82227-9) [facility] GLUCOSE (AUTOMATED)2020-12-16 20:12:00 Test Item Value Reference Range Interpretation Comments POCT GLU (test code = 8202996202) 105 mg/dL 70-110 Lab Interpretation (test code = Normal 25427-8) [facility] GLUCOSE (AUTOMATED)2020-12-16 14:44:00 Test Item Value Reference Range Interpretation Comments POCT GLU (test code = 3921593545) 153 mg/dL 70-110 H Lab Interpretation (test code = Abnormal 19516-4) [facility] (NA, K, CL, CO2, GLUCOSE, BUN, CREATININE, CA)2020-12-16 14:23:00 Test Item Value Reference Range Interpretation Comments NA (test code = 138 mmol/L 135-145 9789991853) K (test code = 3.4 mmol/L 3.5-5.0 L 9550412248) CL (test code = 100 mmol/L 98-108 5731720006) CO2 TOTAL (test code = 31 mmol/L 23-31 0487123630) AGAP (test code = 2-16 7466556913) BUN (test code = 11 mg/dL 7-23 5882286613) GLUCOSE (test code = 162 mg/dL 70-110 H 3069072253) CREATININE (test code = 0.64 mg/dL 0.60-1.25 2612274620) CALCIUM (test code = 8.9 mg/dL 8.6-10.6 5759227011) eGFR Calculation mL/min/1.73m2 (Non-) (test code = 5147819838) eGFR Calculation mL/min/1.73m2 () (test code = 8422151749) JAMES (test code = JAMES) Association of [...] tests). Lab Interpretation Abnormal (test code = 88235-7) [facility] WITH [id number] 14:05:00 Test Item Value Reference Range Interpretation [...] RDW-SD (test code = 45.4 fL 38.5-51.6 89205-9) RDW-CV (test code = 17.0 % 12.1-15.4 H 788-0) PLT (test code = See_Comment H [Automated 777-3) message] The sy stem which generated this result transmitted reference range : 150 - 328 10*3/ ?L. The reference r torito was not used to interpret this result as normal/abnormal . MPV (test code = 8.0 fL 9.8-13.0 L 21443-8) NRBC/100 WBC (test See_Comment [Automat ed code = 2094705626) message] The system which generated this result transmitted reference range : 0.0 - 10.0 /100 WBCs. The refer ence range was not u sed to interpret th is result as normal/abnormal . NRBC x10^3 (test code <0.01 See_Comment [Auto mated = 8167407444) message] The s ystem which generated this result transmitted reference range : 10*3/?L. The reference range was not used to interpret this result as normal/abnormal . GRAN MAT (NEUT) % 70.0 % (test code = 770-8) IMM GRAN % (test code 0.70 % = 6163952062) LYMPH % (test code = 20.5 % 736-9) MONO % (test code = 7.1 % 5905-5) EOS % (test code = 1.0 % 713-8) BASO % (test code = 0.7 % 706-2) GRAN MAT x10^3(ANC) 9.44 10*3/uL 1.99-6.95 H (test code = 8531812855) IMM GRAN x10^3 (test 0.09 10*3/uL 0.00-0.06 H code = 3445334506) LYMPH x10^3 (test code 2.76 10*3/uL 1.09-3.23 = 731-0) MONO x10^3 (test code 0.96 10*3/uL 0.36-1.02 = 742-7) EOS x10^3 (test code = 0.13 10*3/uL 0.06-0.53 711-2) BASO x10^3 (test code 0.10 10*3/uL 0.01-0.09 H = 704-7) Lab Interpretation Abnormal (test code = 26163-2) [facility] HospitalBlood Culture - Peripheral # [id number] 13:01:00 Test Item Value Reference Range Interpretation Comments Blood Culture-Aerobic No organisms No growth Previo us (test code = 56919-0) isolated prelim inary verified result was Culture In Progress on 12/11/2020 at 100 1 CSTPrevious preliminary verified result was No growth a t 24 hours on 12/12/2020 at 070 1 CSTPrevious preliminary verified result was No growth a t 48 hours on 12/13/2020 at 070 1 CSTPrevious preliminary verified result was No growth a t 72 hours on 12/14/2020 at 070 1 [employer] Blood No organisms No growth Previous Culture-Anaerobic isolated preliminar y (test code = 96990-6) verifi ed result was Culture In Progress on 12/11/2020 at 100 1 CSTPrevious preliminary verified result was No growth a t 24 hours on 12/12/2020 at 070 1 CSTPrevious preliminary verified result was No growth a t 48 hours on 12/13/2020 at 070 1 CSTPrevious preliminary verified result was No growth a t 72 hours on 12/14/2020 at 070 1 [employer] Lab Interpretation Normal (test code = 31298-7) [facility]ood Culture - Peripheral # [id number] 13:01:00 Test Item Value Reference Range Interpretation Comments Blood Culture-Aerobic No organisms No growth Previo us (test code = 93668-0) isolated prelim inary verified result was Culture In Progress on 12/11/2020 at 100 1 CSTPrevious preliminary verified result was No growth a t 24 hours on 12/12/2020 at 070 1 CSTPrevious preliminary verified result was No growth a t 48 hours on 12/13/2020 at 070 1 CSTPrevious preliminary verified result was No growth a t 72 hours on 12/14/2020 at 070 1 [employer] Blood No organisms No growth Previous Culture-Anaerobic isolated preliminar y (test code = 51767-5) verifi ed result was Culture In Progress on 12/11/2020 at 100 1 CSTPrevious preliminary verified result was No growth a t 24 hours on 12/12/2020 at 070 1 CSTPrevious preliminary verified result was No growth a t 48 hours on 12/13/2020 at 070 1 CSTPrevious preliminary verified result was No growth a t 72 hours on 12/14/2020 at 070 1 [employer] Lab Interpretation Normal (test code = 04540-1) [facility] GLUCOSE (AUTOMATED)2020-12-16 04:01:00 Test Item Value Reference Range Interpretation Comments POCT GLU (test code = 5089647736) 156 mg/dL 70-110 H Lab Interpretation (test code = Abnormal 55214-6) [facility] GLUCOSE (AUTOMATED)2020-12-16 00:24:00 Test Item Value Reference Range Interpretation Comments POCT GLU (test code = 8529270915) 115 mg/dL 70-110 H Lab Interpretation (test code = Abnormal 67252-5) [facility] CHEST PULMONARY [id number] 23:34:55No pulmonary emboli. No interval change in [...] of intra and extrahepatic biliary du ctal dilatation.[facility] GLUCOSE (AUTOMATED) 2020-12-15 19:28:00 Test Item Value Reference Range Interpretation Comments POCT GLU (test code = 2013471082) 140 mg/dL 70-110 H Lab Interpretation (test code = Abnormal 08468-7) [facility]2021-[facility]-05 15:26:00 Test Item Value Reference Range Interpretation Comments MAGNESIUM (test code = 6008329475) 2.2 mg/dL 1.7-2.4 Lab Interpretation (test code = Normal 93705-5) [facility])2020-12-15 15:15:00 Test Item Value Reference Range Interpretation Comments POCT GLU (test code = 6368108807) 181 mg/dL 70-110 H Lab Interpretation (test code = Abnormal 25910-3) [facility] (NA, K, CL, CO2, GLUCOSE, BUN, CREATININE, CA)2020-12-15 13:07:00 Test Item Value Reference Range Interpretation Comments NA (test code = 136 mmol/L 135-145 7524546460) K (test code = 3.6 mmol/L 3.5-5.0 2945226567) CL (test code = 96 mmol/L 98-108 L 9127690672) CO2 TOTAL (test code = 29 mmol/L 23-31 8054868347) AGAP (test code = 2-16 1568340402) BUN (test code = 12 mg/dL 7-23 6826469197) GLUCOSE (test code = 183 mg/dL 70-110 H 5885231461) CREATININE (test code = 0.70 mg/dL 0.60-1.25 8613151543) CALCIUM (test code = 9.2 mg/dL 8.6-10.6 2116958861) eGFR Calculation mL/min/1.73m2 (Non-) (test code = 1882782919) eGFR Calculation mL/min/1.73m2 () (test code = 2253025967) JAMES (test code = JAMES) Association of [...] tests). Lab Interpretation Abnormal (test code = 56115-9) [facility] WITH [id number] 12:32:00 Test Item Value Reference Range Interpretation Comments WBC (test code = See_Comment H [Automated 1290-2) message] The system which generated this result transmit ronan reference range : 4.20 - 10.70 10*3/?L. The reference range was not used to interpret this result as normal/abnormal . RBC (test code = See_Comment H [Automated 419-8) message] The system which generated this result [...] RDW-SD (test code = 44.4 fL 38.5-51.6 65909-4) RDW-CV (test code = 17.7 % 12.1-15.4 H 788-0) PLT (test code = See_Comment H [Automated 777-3) message] The system which generated this result transmit ronan reference range : 150 - 328 10*3/ ?L. The reference range was not u sed to interpret th is result as normal/abnormal . MPV (test code = 8.1 fL 9.8-13.0 L 05942-7) NRBC/100 WBC (test See_Comment [Automat ed code = 9100099872) message] The system which generated this result transmit ronan reference range : 0.0 - 10.0 /100 WBCs. The reference range was not used to interpret this result as normal/abnormal . NRBC x10^3 (test code <0.01 See_Comment [Auto mated = 4854122270) message] The system which generated this result transmit ronan reference range : 10*3/?L. The reference range was not used to interpret this result as normal/abnormal . GRAN MAT (NEUT) % 74.5 % (test code = 770-8) IMM GRAN % (test code 0.70 % = 3775672065) LYMPH % (test code = 17.4 % 736-9) MONO % (test code = 6.8 % 5905-5) EOS % (test code = 0.2 % 713-8) BASO % (test code = 0.4 % 706-2) GRAN MAT x10^3(ANC) 11.99 10*3/uL 1.99-6.95 H (test code = 5160652597) IMM GRAN x10^3 (test 0.11 10*3/uL 0.00-0.06 H code = 8847309973) LYMPH x10^3 (test code 2.80 10*3/uL 1.09-3.23 = 731-0) MONO x10^3 (test code 1.10 10*3/uL 0.36-1.02 H = 742-7) EOS x10^3 (test code = 0.03 10*3/uL 0.06-0.53 L 711-2) BASO x10^3 (test code 0.06 10*3/uL 0.01-0.09 = 704-7) Lab Interpretation Abnormal (test code = 90026-0) [facility] GLUCOSE (AUTOMATED)2020-12-15 04:16:00 Test Item Value Reference Range Interpretation Comments POCT GLU (test code = 9050180161) 200 mg/dL 70-110 H Lab Interpretation (test code = Abnormal 83465-3) [facility] B[facility] (THIAMINE), WHOLE [id number] 00:30:00 Test Item Value Reference Range Interpretation Comments Vitamin B1, Whole 136 nmol/L 70-180 INTERPRETI VE INFORMATION: Blood (test code = Vitamin B 1, Whole Blood 45338-0) This assay júnior ures the concentration o f thiamine diphosphate (TD P), the primary active form of vitamin B1. Nick roximately 90 percent of v itamin B1 present in whol e blood is TDP. Thiamine a nd thiamine monoph osphate, which comprise the remaining 10 pe rcent, are not measured. T his test was developed a nd its performance characteristics determined by [facility]. I t has not been cleared or approved by the [place] Food and Drug Administration. This test was performed i n a CLIA certified labor atory and is intended for clinical purposes.Perfor med By: [facility] [place] [address] [id number] aboratory Director: Namrata Klein MD [facility] GLUCOSE (AUTOMATED)2020-12-14 23:35:00 Test Item Value Reference Range Interpretation Comments POCT GLU (test code = 2558559757) 151 mg/dL 70-110 H Lab Interpretation (test code = Abnormal 42030-2) [facility] GLUCOSE (AUTOMATED)2020-12-14 19:19:00 Test Item Value Reference Range Interpretation Comments POCT GLU (test code = 0795272240) 193 mg/dL 70-110 H Lab Interpretation (test code = Abnormal 80737-3) [facility] GLUCOSE (AUTOMATED)2020-12-14 15:22:00 Test Item Value Reference Range Interpretation Comments POCT GLU (test code = 5258962411) 221 mg/dL 70-110 H Lab Interpretation (test code = Abnormal 55832-3) [facility] GLUCOSE (AUTOMATED)2020-12-14 02:37:00 Test Item Value Reference Range Interpretation Comments POCT GLU (test code = 0875543964) 210 mg/dL 70-110 H Lab Interpretation (test code = Abnormal 17870-3) [facility] GLUCOSE (AUTOMATED)2020-12-13 23:33:00 Test Item Value Reference Range Interpretation Comments POCT GLU (test code = 3901097577) 182 mg/dL 70-110 H Lab Interpretation (test code = Abnormal 12193-7) [facility] GLUCOSE (AUTOMATED)2020-12-13 18:09:00 Test Item Value Reference Range Interpretation Comments POCT GLU (test code = 3756186202) 150 mg/dL 70-110 H Lab Interpretation (test code = Abnormal 89618-6) [facility] METABOLIC PANEL (NA, K, CL, CO2, GLUCOSE, BUN, CREATININE, CA)2020-12-13 16:27:00 Test Item Value Reference Range Interpretation Comments NA (test code = 136 mmol/L 135-145 3926294226) K (test code = 3.7 mmol/L 3.5-5.0 0615122411) CL (test code = 96 mmol/L 98-108 L 5220578467) CO2 TOTAL (test code = 29 mmol/L 23-31 8809479107) AGAP (test code = 2-16 8089732432) BUN (test code = 6 mg/dL 7-23 L 1798367498) GLUCOSE (test code = 212 mg/dL 70-110 H 2513942823) CREATININE (test code = 0.61 mg/dL 0.60-1.25 3837147779) CALCIUM (test code = 9.5 mg/dL 8.6-10.6 0125442062) eGFR Calculation mL/min/1.73m2 (Non-) (test code = 2293535966) eGFR Calculation mL/min/1.73m2 () (test code = 8743974859) JAMES (test code = JAMES) Association of [...] tests). Lab Interpretation Abnormal (test code = 96119-7) [facility] WITH [id number] 16:10:00 Test Item Value Reference Range Interpretation Comments WBC (test code = See_Comment H [Automated 3290-2) message] The sy stem which generated this result transmitted reference range : 4.20 - 10.70 10*3/?L. The reference range was not used to interpret this result as normal/abnormal . RBC (test code = See_Comment H [Automated 589-8) message] The sy stem which generated this [...] RDW-SD (test code = 43.3 fL 38.5-51.6 13131-3) RDW-CV (test code = 16.2 % 12.1-15.4 H 788-0) PLT (test code = See_Comment H [Automated 777-3) message] The sy stem which generated this result transmitted reference range : 150 - 328 10*3/ ?L. The reference r torito was not used to interpret this result as normal/abnormal . MPV (test code = 8.2 fL 9.8-13.0 L 52468-7) NRBC/100 WBC (test See_Comment [Automat ed code = 6441858948) message] The system which generated this result transmitted reference range : 0.0 - 10.0 /100 WBCs. The refer ence range was not u sed to interpret th is result as normal/abnormal . NRBC x10^3 (test code <0.01 See_Comment [Auto mated = 1909492397) message] The s ystem which generated this result transmitted reference range : 10*3/?L. The reference range was not used to interpret this result as normal/abnormal . GRAN MAT (NEUT) % 86.2 % (test code = 770-8) IMM GRAN % (test code 0.70 % = 1875154624) LYMPH % (test code = 10.2 % 736-9) MONO % (test code = 2.5 % 5905-5) EOS % (test code = 0.1 % 713-8) BASO % (test code = 0.3 % 706-2) GRAN MAT x10^3(ANC) 9.61 10*3/uL 1.99-6.95 H (test code = 9419538999) IMM GRAN x10^3 (test 0.08 10*3/uL 0.00-0.06 H code = 0260640983) LYMPH x10^3 (test code 1.14 10*3/uL 1.09-3.23 = 731-0) MONO x10^3 (test code 0.28 10*3/uL 0.36-1.02 L = 742-7) EOS x10^3 (test code = <0.03 0.06-0.53 L 711-2) BASO x10^3 (test code 0.03 10*3/uL 0.01-0.09 = 704-7) Lab Interpretation Abnormal (test code = 10238-7) [facility]2020-12-13 14:16:00 Test Item Value Reference Range Interpretation Comments POCT GLU (test code = 9670947450) 236 mg/dL 70-110 H Lab Interpretation (test code = Abnormal 77823-2) [facility] ONLY COVID [id number] 04:58:00COVID DMT InterpretationInterpretation/Recommendations: Molecular NAAT Tests for [...] testing the patient has had at [facility], including molecular NAAT testing (more commonly known as PCR testing and Rapid ID Now testing) and antibody testing. It does not take into account any testing that a patient has had outside of the [facility] medical record. [facility] LABORATORY SERVICESCOVID Resu uptHHFM-CvZ-0 Rapid ID NOW (no units) ? ? Date ? Value ? 12/11/2020 ? Not Detected ? ? ? 11/16/2020 ? Not Detected ? ? ? 08/21/2020 ?Not Detected ? [facility] 2020-12-13 03:11:00 Test Item Value Reference Range Interpretation Comments POCT GLU (test code = 7849947445) 171 mg/dL 70-110 H Lab Interpretation (test code = Abnormal 67068-7) [facility] GLUCOSE (AUTOMATED)2020-12-13 00:00:00 Test Item Value Reference Range Interpretation Comments POCT GLU (test code = 6220038414) 118 mg/dL 70-110 H Lab Interpretation (test code = Abnormal 57594-4) [facility] GLUCOSE (AUTOMATED)2020-12-12 20:29:00 Test Item Value Reference Range Interpretation Comments POCT GLU (test code = 6148666757) 173 mg/dL 70-110 H Lab Interpretation (test code = Abnormal 79560-6) [facility] HospitalUS ABDOMEN [id number] 19:56:17 1. ?Hepatic steatosis. However, limited evaluation [...] main portal veinwasevaluated with color Doppler imaging. Furniture Mechanic images were obtainedfor the record. COMPARISON: Ultrasound [...] normal where visualized. SPLEEN:No images were obtained. [facility], Radiant Results Inft User - 12/12/2020 1:57 PM CSTEXAM: US ABDOMEN LIMITEDHISTORY: 70 years-old male with RUQ ultrasound to assess for common bileduct dilation .TECHNIQUE: Limited abdominal ultrasound focused on the liver, biliarysystem, pancreas, and spleen was performed. The main portal vein wasevaluated with color Doppler imaging. Furniture Mechanic images were obtainedfor the record.COMPARISON: Ultrasound abdomen [...] this study and agree with the abovereport. [facility]2020-12-12 19:24:00 Test Item Value Reference Range Interpretation Comments POCT GLU (test code = 1588248894) 230 mg/dL 70-110 H Lab Interpretation (test code = Abnormal 39198-2) [facility] HospitalXR CHEST 1 [id number] 15:16:46 Low lung volumes with mild perihilar [...] have reviewed thisstudy and agree with theabove report.[facility]2020-12-12 14:34:00 Test Item Value Reference Range Interpretation Comments POCT GLU (test code = 2441775617) 225 mg/dL 70-110 H Lab Interpretation (test code = Abnormal 92271-3) [facility] HospitalURINE [id number] 13:28:00 Test Item Value Reference Range Interpretation Comments URINE CULTURE (test < 10,000 CFU/mL mixed code = 630-4) aerobic organisms - suggests endogenous microbial contamination [facility] HospitalBasic Metabolic Panel (NA, K, CL, CO2, GLUCOSE, BUN, CREATININE, CA)2020-12-12 10:05:00 Test Item Value Reference Range Interpretation Comments NA (test code = 136 mmol/L 135-145 7910117610) K (test code = 3.5 mmol/L 3.5-5.0 9660180277) CL (test code = 100 mmol/L 98-108 3238596671) CO2 TOTAL (test code = 31 mmol/L 23-31 3181638900) AGAP (test code = 2-16 5105536598) BUN (test code = 7 mg/dL 7-23 6504822032) GLUCOSE (test code = 259 mg/dL 70-110 H 6204907909) CREATININE (test code = 0.63 mg/dL 0.60-1.25 9691773014) CALCIUM (test code = 8.5 mg/dL 8.6-10.6 L 3698843394) eGFR Calculation mL/min/1.73m2 (Non-) (test code = 1797982865) eGFR Calculation mL/min/1.73m2 () (test code = 1981484174) JAMES (test code = JAMES) Association of [...] tests). Lab Interpretation Abnormal (test code = 92252-5) [facility] HospitalMagnesium [id number] 10:05:00 Test Item Value Reference Range Interpretation Comments MAGNESIUM (test code = 1924944621) 1.9 mg/dL 1.7-2.4 Lab Interpretation (test code = Normal 80781-6) [facility] with [id number] 09:48:00 Test Item Value Reference Range Interpretation Comments WBC (test code = See_Comment [Automated 7333-2) message] The sy stem which generated this result transmitted reference range : 4.20 - 10.70 10*3/?L. The reference range was not used to interpret this result as normal/abnormal . RBC (test code = See_Comment [Automated 495-8) message] The sy stem which generated this [...] RDW-SD (test code = 46.0 fL 38.5-51.6 95966-7) RDW-CV (test code = 16.1 % 12.1-15.4 H 788-0) PLT (test code = See_Comment H [Automated 777-3) message] The sy stem which generated this result transmitted reference range : 150 - 328 10*3/ ?L. The reference r torito was not used to interpret this result as normal/abnormal . MPV (test code = 8.6 fL 9.8-13.0 L 86463-9) NRBC/100 WBC (test See_Comment [Automat ed code = 0882036283) message] The system which generated this result transmitted reference range : 0.0 - 10.0 /100 WBCs. The refer ence range was not u sed to interpret th is result as normal/abnormal . NRBC x10^3 (test code <0.01 See_Comment [Auto mated = 8566599148) message] The s ystem which generated this result transmitted reference range : 10*3/?L. The reference range was not used to interpret this result as normal/abnormal . GRAN MAT (NEUT) % 70.2 % (test code = 770-8) IMM GRAN % (test code 0.30 % = 9983944857) LYMPH % (test code = 18.8 % 736-9) MONO % (test code = 5.0 % 5905-5) EOS % (test code = 5.2 % 713-8) BASO % (test code = 0.5 % 706-2) GRAN MAT x10^3(ANC) 6.05 10*3/uL 1.99-6.95 (test code = 1004800712) IMM GRAN x10^3 (test 0.03 10*3/uL 0.00-0.06 code = 9524202292) LYMPH x10^3 (test code 1.62 10*3/uL 1.09-3.23 = 731-0) MONO x10^3 (test code 0.43 10*3/uL 0.36-1.02 = 742-7) EOS x10^3 (test code = 0.45 10*3/uL 0.06-0.53 711-2) BASO x10^3 (test code 0.04 10*3/uL 0.01-0.09 = 704-7) Lab Interpretation Abnormal (test code = 18670-0) [facility] GLUCOSE (AUTOMATED)2020-12-12 03:42:00 Test Item Value Reference Range Interpretation Comments POCT GLU (test code = 196 mg/dL 70-110 H Notifi ed Provider [id number]) Lab Interpretation (test Abnormal code = 92199-5) [facility] HospitalFOLATE2021-[facility] 02:24:00 Test Item Value Reference Range Interpretation Comments FOLATE SER (test code = 5779725822) 5.8 ng/mL 3.0-20.0 Lab Interpretation (test code = Normal 28459-0) [facility] HospitalVITAMIN B12, [id number] 00:55:00 Test Item Value Reference Range Interpretation Comments VIT B12 (test code = 844 pg/mL 240-930 [id number]) JAMES (test code = JAMES) Biotin has been reported to cause a positive bias, interpret results relative to patient's use of biotin. Lab Interpretation (test Normal code = 12066-6) [facility] GLUCOSE (AUTOMATED)2020-12-12 00:14:00 Test Item Value Reference Range Interpretation Comments POCT GLU (test code = 5000314320) 164 mg/dL 70-110 H Lab Interpretation (test code = Abnormal 02706-5) [facility] HospitalCREATINE [id number] 23:42:00 Test Item Value Reference Range Interpretation Comments CK (test code = 0675494753) <20 33-194 L Lab Interpretation (test code = Abnormal 66206-0) [facility] HospitalTHYROID STIMULATING [id number] 23:17:00 Test Item Value Reference Range Interpretation Comments TSH (test code = See_Comment Biotin has been 0451659966) reported to cau se a negative bias, interpret resul ts relative to pat ient's use of biotin. [Automated mess age] The system [employer] generated this result transmitted ref erence range: 0.45 - 4 .70 mIU/L. The refe rence range was not u sed to interpret this result as normal/abnor mal. Lab Interpretation (test Normal code = 03033-3) [facility] HospitalXR HIPS 3 VW [id number] 21:41:53No appreciable fracture lines. RL: 6200 ICAL HISTORY:Pain. COMPARISON:none TECHNIQUE:XR HIPS 3 VW LEFT performed. Technical Quality: Adequate FINDINGS:There are no appreciable fracture lines or subluxations. ?There is grossanatomic alignment. ?No appreciable joint effusion. Moderate to severe hip joint space narrowing, with arthropathy. Marginalosteophytes and subchondral sclerosis. No osseous erosions. Inmb, Radiant Results Inft User -12/11/2020 3:43 PM CSTCLINICAL HISTORY:Pain.COMPARISON:noneTECHNIQUE:XR HIPS 3 VW LEFT performed. Technical Quality: AdequateFINDINGS:There are no appreciable fracture lines or subluxations. There isgrossanatomic alignment. No appreciable joint effusion.Moderate to severe hip joint space narrowing, with arthropathy. Marginalosteophytes and subchondral sclerosis. No osseous erosions.IMPRESSIONNo appreciable fracture lines.RL: 6200 [facility]PROCALCITONIN2021-[facility]-01 20:00:00 Test Item Value Reference Range Interpretation Comments Procalcitonin (test 0.13 ng/mL <0.07 H code = 7121725027) JAMES (test code = JAMES) INTERPRETATION OF [...] lung abscess/empyema. For further information please refer to:[email or web address] Lab Interpretation Abnormal (test code = 53716-2) [facility] HospitalPO[facility]SE (AUTOMATED)2020-12-11 19:07:00 Test Item Value Reference Range Interpretation Comments POCT GLU (test code = 7571905074) 274 mg/dL 70-110 H Lab Interpretation (test code = Abnormal 64812-9) [facility] HospitalMAGNESIUM2021-03-01 18:31:00 Test Item Value Reference Range Interpretation Comments MAGNESIUM (test code = 1778506183) 1.9 mg/dL 1.7-2.4 Lab Interpretation (test code = Normal 27885-0) [facility] HospitalFERRITIN [id number] 18:31:00 Test Item Value Reference Range Interpretation Comments FERRITIN (test code = 178.0 ng/mL 18.0-464.0 9938022613) JAMES (test code = JAMES) Biotin has been reported to cause a negative bias, interpret results relative to patient's use of biotin. Lab Interpretation (test Normal code = 25855-3) [facility] HospitalCT HEAD WO [id number] 14:36:47 No acute intracranial abnormality. Dilated ventricles [...] reviewed this study and agree with the abovereport.[facility] HospitalURINALYSIS2021-03-01 14:28:00 Test Item Value Reference Range Interpretation Comments APPEARANCE (test code = Clear Clear 2602824641) COLOR (test code = Yellow Yellow 8742822926) PH (test code = 4.8-8.0 3639313024) SP GRAVITY (test code = 1.003-1.030 8577612938) GLU U QUAL (test code = 500 mg/dL Normal A 3628949207) BLOOD (test code = Negative Negative 5255740171) KETONES (test code = 5 mg/dL Negative A 9947487392) PROTEIN (test code = Negative Negative 2887-8) UROBILIN (test code = Normal Normal 3053123418) BILIRUBIN (test code = Negative Negative 5796342802) NITRITE (test code = Negative Negative 9519261342) LEUK RYAN (test code = Negative Negative 6372690778) RBC/HPF (test code = See_Comment [Autom ated message] 1340572593) The system [employer] generated this result transmit ronan reference range : 0 - 3 HPF. The refe rence range was not u sed to interpret th is result as normal/abnormal . WBC/HPF (test code = See_Comment [Autom ated message] 8924345155) The system [employer] generated this result transmit ronan reference range : 0 - 5 HPF. The refe rence range was not u sed to interpret th is result as normal/abnormal . BACTERIA (test code = Negative Negative 2672020587) MUCOUS (test code = Slight Negative LPF A 3250851123) SQ EPITH (test code = HPF 8967742446) Lab Interpretation (test Abnormal code = 33144-6) [facility] HospitalCOVID-19 (ID NOW RAPID TESTING)2020-12-11 13:10:00 Test Item Value Reference Range Interpretation Comments SARS-CoV-2 Rapid ID NOW Not Detected Not Detected (test code = 96894-8) JAMES (test code = JAMES) ID NOW COVID-19 Assay is an isothermal nucleic acid amplification test intended for the qualitative detection of nucleic acid from SARS-CoV-2 viral RNA in nasopharyngeal (CARDIOVASCULAR TECHNOLOGIST) specimens. It is used under Emergency Use [...] indicated. Lab Interpretation Normal (test code = 32482-2) [facility] HospitalCOM. METABOLIC PANEL (13364)2020-12-11 12:29:00 Test Item Value Reference Range Interpretation Comments NA (test code = 136 mmol/L 135-145 7012002122) K (test code = 3.5 mmol/L 3.5-5.0 4084813469) CL (test code = 95 mmol/L 98-108 L 7323230591) CO2 TOTAL (test code = 35 mmol/L 23-31 H 9436129163) AGAP (test code = 2-16 0963434293) BUN (test code = 9 mg/dL 7-23 3045720257) GLUCOSE (test code = 329 mg/dL 70-110 H 8484170682) CREATININE (test code = 0.72 mg/dL 0.60-1.25 4711221172) TOTAL BILI (test code = 0.6 mg/dL 0.1-1.0 4296963567) CALCIUM (test code = 9.0 mg/dL 8.6-10.6 1814643999) T PROTEIN (test code = 6.8 g/dL 6.3-8.2 7384222187) ALBUMIN (test code = 3.8 g/dL 3.5-5.0 0451196521) ALK PHOS (test code = 288 U/L 34-122 H 8364748269) ALTv (test code = 46 U/L 5-50 2-6) AST(SGOT) (test code = 38 U/L 13-40 3751210091) eGFR Calculation mL/min/1.73m2 (Non-) (test code = 9929272279) eGFR Calculation mL/min/1.73m2 () (test code = 4771361185) JAMES (test code = JAMES) Association of [...] tests). Lab Interpretation Abnormal (test code = 32593-4) [facility] HospitalLactic Acid Whole [id number] 12:23:00 Test Item Value Reference Range Interpretation Comments LACTIC ACID (test code = 2.09 mmol/L 0.50-2.20 2225870153) Lab Interpretation (test code = Normal 72368-0) [facility] HospitalCB WITH [id number] 12:17:00 Test Item Value Reference Range Interpretation [...] RDW-SD (test code = 44.9 fL 38.5-51.6 61213-1) RDW-CV (test code = 15.9 % 12.1-15.4 H 788-0) PLT (test code = See_Comment H [Automated 777-3) message] The sy stem which generated this result transmitted reference range : 150 - 328 10*3/ ?L. The reference r torito was not used to interpret this result as normal/abnormal . MPV (test code = 8.3 fL 9.8-13.0 L 13313-0) NRBC/100 WBC (test See_Comment [Automat ed code = 6351276923) message] The system which generated this result transmitted reference range : 0.0 - 10.0 /100 WBCs. The refer ence range was not u sed to interpret th is result as normal/abnormal . NRBC x10^3 (test code <0.01 See_Comment [Auto mated = 6673684581) message] The s ystem which generated this result transmitted reference range : 10*3/?L. The reference range was not used to interpret this result as normal/abnormal . GRAN MAT (NEUT) % 77.9 % (test code = 770-8) IMM GRAN % (test code 0.50 % = 7519715015) LYMPH % (test code = 12.2 % 736-9) MONO % (test code = 5.2 % 5905-5) EOS % (test code = 3.7 % 713-8) BASO % (test code = 0.5 % 706-2) GRAN MAT x10^3(ANC) 9.57 10*3/uL 1.99-6.95 H (test code = 3408904730) IMM GRAN x10^3 (test 0.06 10*3/uL 0.00-0.06 code = 4470314398) LYMPH x10^3 (test code 1.50 10*3/uL 1.09-3.23 = 731-0) MONO x10^3 (test code 0.64 10*3/uL 0.36-1.02 = 742-7) EOS x10^3 (test code = 0.46 10*3/uL 0.06-0.53 711-2) BASO x10^3 (test code 0.06 10*3/uL 0.01-0.09 = 704-7) Lab Interpretation Abnormal (test code = 08963-2) [facility] HospitalLAB ONLY COVID [id number] 18:43:00COVID DMT InterpretationInterpretation/Recommendations: Molecular NAAT Test Results [...] a nasopharyngeal sample, there is approximately a bto-pc-ukwxb chance that the patient was infected and [...] based upon aggregate data pooled from the [facility] medical record including both current and prior COVID-19 related testing results for the following tests offered at our institution:A. Tests for the Identification of SARS-CoV-2 RNA:SARS-CoV-2 PCR assays including [place] Aptima, [place] Fusion, Barrett RealTime, and [employer] Xpert Xpress. SARS-CoV-2 Rapid ID NOW by the ID NOW assay. ? B. Tests for the Identification of SARS-CoV-2 Antibodies: Chemiluminescent immunoassays including Access SARS-CoV-2 IgM (DXI 600), [employer] Ebvn-KJAM-QbW-2 IgG (Vitros 5600 and Vitros 3600), and Barrett SARS-CoV-2 IgG (SSIS SSRS DEVELOPER I System). These interpretation comments assume that only the above testing was utilized and that the approved acceptable specimen type(s) were used for a given test. These interpretations are autopopulated into [employer] based on computerized algorithms matching an interpretation code number to the patient's set of test results. While a clinical pathologist evaluates the combinations for clinical accuracy, clinical correlation is recommended as it may not take into account very remote prior testing. Furthermore, it does not consider testing a patient may have had outside of the [facility] system. Additionally, it should be noted that the computerized algorithm treats the results for PCR testing and Rapid ID NOW testing (also PCR) synonymously, and thus, refers to both testing methodologies as PCR tests. Given that the sensitivity of [facility]'s Rapid ID NOW testingplatform is analogous [...] may be beneficial in this setting. [facility] LABORATORY SERVICESCOVID ZfcjipcFIWE-MrT-5 Rapid ID NOW (no units) ? ? Date ? Value ? 08/21/2020 ? Not Detected ? [facility] SERVICESUnAnt[facility]2020-08-23 18:25:00 Test Item Value Reference Range Interpretation Comments POCT GLU (test code = 2378303824) 297 mg/dL 70-110 H Lab Interpretation (test code = Abnormal 86312-5) [facility] GLUCOSE (AUTOMATED)2020-08-23 14:25:00 Test Item Value Reference Range Interpretation Comments POCT GLU (test code = 1319962624) 181 mg/dL 70-110 H Lab Interpretation (test code = Abnormal 08478-3) [facility] HospitalBasic Metabolic Panel (NA, K, CL, CO2, GLUCOSE, BUN, CREATININE, CA)2020-08-23 11:45:00 Test Item Value Reference Range Interpretation Comments NA (test code = 132 mmol/L 135-145 L 3631817430) K (test code = 4.0 mmol/L 3.5-5 9443252990) CL (test code = 96 mmol/L 98-108 L 0825339930) CO2 TOTAL (test code = 33 mmol/L 23-31 H 6921490512) AGAP (test code = 2-16 5969738037) BUN (test code = 9 mg/dL 7-23 0847865536) GLUCOSE (test code = 176 mg/dL 70-110 H 8478768321) CREATININE (test code = 0.66 mg/dL 0.6-1.25 9262191094) CALCIUM (test code = 8.5 mg/dL 8.6-10.6 L 6772037830) eGFR Calculation mL/min/1.73m2 (Non-) (test code = 1217108785) eGFR Calculation mL/min/1.73m2 () (test code = 2675971942) JAMES (test code = JAMES) Association of [...] tests). Lab Interpretation Abnormal (test code = 48248-6) [facility] HospitalMagnesium [id number] 11:45:00 Test Item Value Reference Range Interpretation Comments MAGNESIUM (test code = 2382503446) 2.0 mg/dL 1.7-2.4 Lab Interpretation (test code = Normal 67337-7) [facility] HospitalCB with Ugyzpiggcvdt3476-36-81 11:38:00 Test Item Value Reference Range Interpretation [...] RDW-SD (test code = 41.8 fL 38.5-51.6 17261-6) RDW-CV (test code = 14.3 % 12.1-15.4 788-0) PLT (test code = See_Comment H [Automated 777-3) message] The sy stem which generated this result transmitted reference range : 150 - 328 10*3/ ?L. The reference r torito was not used to interpret this result as normal/abnormal . MPV (test code = 8.0 fL 9.8-13 L 35506-0) NRBC/100 WBC (test See_Comment [Automat ed code = 4057418574) message] The system which generated this result transmitted reference range : 0.0 - 10.0 /100 WBCs. The refer ence range was not u sed to interpret th is result as normal/abnormal . NRBC x10^3 (test code <0.01 See_Comment [Auto mated = 9954724193) message] The s ystem which generated this result transmitted reference range : 10*3/?L. The reference range was not used to interpret this result as normal/abnormal . GRAN MAT (NEUT) % 61.5 % (test code = 770-8) IMM GRAN % (test code 2.00 % = 4320478470) LYMPH % (test code = 25.5 % 736-9) MONO % (test code = 6.3 % 5905-5) EOS % (test code = 3.7 % 713-8) BASO % (test code = 1.0 % 706-2) GRAN MAT x10^3(ANC) 5.29 10*3/uL 1.99-6.95 (test code = 9363565486) IMM GRAN x10^3 (test 0.17 10*3/uL 0-0.06 H code = 3263858429) LYMPH x10^3 (test code 2.19 10*3/uL 1.09-3.23 = 731-0) MONO x10^3 (test code 0.54 10*3/uL 0.36-1.02 = 742-7) EOS x10^3 (test code = 0.32 10*3/uL 0.06-0.53 711-2) BASO x10^3 (test code 0.09 10*3/uL 0.01-0.09 = 704-7) Lab Interpretation Abnormal (test code = 38070-6) [facility] GLUCOSE (AUTOMATED)2020-08-23 10:22:00 Test Item Value Reference Range Interpretation Comments POCT GLU (test code = 9516646700) 164 mg/dL 70-110 H Lab Interpretation (test code = Abnormal 59764-5) [facility] GLUCOSE (AUTOMATED)2020-08-23 05:56:00 Test Item Value Reference Range Interpretation Comments POCT GLU (test code = 7763380695) 242 mg/dL 70-110 H Lab Interpretation (test code = Abnormal 39802-3) [facility] GLUCOSE (AUTOMATED)2020-08-23 03:02:00 Test Item Value Reference Range Interpretation Comments POCT GLU (test code = 2207577359) 210 mg/dL 70-110 H Lab Interpretation (test code = Abnormal 01178-9) [facility] GLUCOSE (AUTOMATED)2020-08-22 23:40:00 Test Item Value Reference Range Interpretation Comments POCT GLU (test code = 5982664572) 267 mg/dL 70-110 H Lab Interpretation (test code = Abnormal 21390-0) [facility] GLUCOSE (AUTOMATED)2020-08-22 19:08:00 Test Item Value Reference Range Interpretation Comments POCT GLU (test code = 6441697735) 191 mg/dL 70-110 H Lab Interpretation (test code = Abnormal 81705-4) [facility] GLUCOSE (AUTOMATED)2020-08-22 13:50:00 Test Item Value Reference Range Interpretation Comments POCT GLU (test code = 8542279300) 174 mg/dL 70-110 H Lab Interpretation (test code = Abnormal 01543-1) [facility] HospitalURINE [id number] 12:59:00 Test Item Value Reference Range Interpretation Comments URINE CULTURE (test No aerobic growth (< code = 630-4) 1000 CFU/mL) [facility] with [id number] 11:28:00 Test Item Value Reference Range Interpretation Comments WBC (test code = See_Comment [Automated 7690-2) message] The sy stem which generated this result transmitted reference range : 4.20 - 10.70 10*3/?L. The reference range was not used to interpret this result as normal/abnormal . RBC (test code = See_Comment L [Automated 779-8) message] The sy stem which generated this [...] RDW-SD (test code = 42.5 fL 38.5-51.6 24494-1) RDW-CV (test code = 14.5 % 12.1-15.4 788-0) PLT (test code = See_Comment H [Automated 777-3) message] The sy stem which generated this result transmitted reference range : 150 - 328 10*3/ ?L. The reference r torito was not used to interpret this result as normal/abnormal . MPV (test code = 8.0 fL 9.8-13 L 14854-0) NRBC/100 WBC (test See_Comment [Automat ed code = 0998767497) message] The system which generated this result transmitted reference range : 0.0 - 10.0 /100 WBCs. The refer ence range was not u sed to interpret th is result as normal/abnormal . NRBC x10^3 (test code <0.01 See_Comment [Auto mated = 7293933776) message] The s ystem which generated this result transmitted reference range : 10*3/?L. The reference range was not used to interpret this result as normal/abnormal . GRAN MAT (NEUT) % 69.1 % (test code = 770-8) IMM GRAN % (test code 2.20 % = 9590707978) LYMPH % (test code = 20.9 % 736-9) MONO % (test code = 5.8 % 5905-5) EOS % (test code = 1.0 % 713-8) BASO % (test code = 1.0 % 706-2) GRAN MAT x10^3(ANC) 6.51 10*3/uL 1.99-6.95 (test code = 0694957348) IMM GRAN x10^3 (test 0.21 10*3/uL 0-0.06 H code = 9357710010) LYMPH x10^3 (test code 1.97 10*3/uL 1.09-3.23 = 731-0) MONO x10^3 (test code 0.55 10*3/uL 0.36-1.02 = 742-7) EOS x10^3 (test code = 0.09 10*3/uL 0.06-0.53 711-2) BASO x10^3 (test code 0.09 10*3/uL 0.01-0.09 = 704-7) BASO STIPPLING (test Present A code = 703-9) BANDS (test code = Increased A 4538615745) TOXIC CHANGES (test Present A code = 803-7) Lab Interpretation Abnormal (test code = 81830-2) [facility] Metabolic Panel (NA, K, CL, CO2, GLUCOSE, BUN, CREATININE, CA)2020-08-22 11:12:00 Test Item Value Reference Range Interpretation Comments NA (test code = 135 mmol/L 135-145 3747651784) K (test code = 3.6 mmol/L 3.5-5 9929298053) CL (test code = 99 mmol/L 98-108 9499067086) CO2 TOTAL (test code = 31 mmol/L 23-31 8398446855) AGAP (test code = 2-16 7888272188) BUN (test code = 9 mg/dL 7-23 0489498165) GLUCOSE (test code = 198 mg/dL 70-110 H 6884546364) CREATININE (test code = 0.72 mg/dL 0.6-1.25 7231448752) CALCIUM (test code = 8.3 mg/dL 8.6-10.6 L 0920546119) eGFR Calculation mL/min/1.73m2 (Non-) (test code = 8731910719) eGFR Calculation mL/min/1.73m2 () (test code = 0232529209) JAMES (test code = JAMES) Association of [...] tests). Lab Interpretation Abnormal (test code = 07532-5) [facility] HospitalMagnesium Broep8400-54-18 11:12:00 Test Item Value Reference Range Interpretation Comments MAGNESIUM (test code = 0932936086) 2.0 mg/dL 1.7-2.4 Lab Interpretation (test code = Normal 40719-3) [facility] HospitalLipid Panel (Total Cholesterol, Triglycerides, HDL) - Codeeec5000-74-56 11:12:00 Test Item Value Reference Range Interpretation Comments CHOL (test code = 155 mg/dL 120-200 7704071731) HDL (test code = 42 mg/dL >40 6178471174) HDLC RATIO (test code = See_Comment [Au tomated message] 2539346434) The system [employer] generated this result transmit ronan reference range : <=5.0. The refe rence range was not u sed to interpret th is result as normal/abnormal . TRIG (test code = 186 mg/dL 30-170 H 7976703677) LDL CHOL (test code = 76 mg/dL See_Comment [Auto mated message] 19352-5) The system [employer] generated this result transmit ronan reference range : <=160. The refe rence range was not u sed to interpret th is result as normal/abnormal . VLDL (test code = 37 mg/dL 5-60 8609959176) Lab Interpretation (test Abnormal code = 53932-9) [facility] HospitalHEPATIC FUNCTION PANEL (20250) (ALB,T.PRO,BILI T,BU/BC,ALT,AST,ALK PHOS)2020-08-22 11:12:00 Test Item Value Reference Range Interpretation Comments TOTAL BILI (test code = 5127891941) 0.6 mg/dL 0.1-1.1 BILI UNCON (test code = 1337159311) 0.2 mg/dL 0.1-1.1 BILI CONJ (test code = 5306015434) 0.0 mg/dL 0-0.3 T PROTEIN (test code = 9191758468) 6.0 g/dL 6.3-8.2 L ALBUMIN (test code = 2331194272) 2.8 g/dL 3.5-5 L ALK PHOS (test code = 5230874831) 222 U/L 34-122 H ALTv (test code = 1742-6) 27 U/L 5-50 AST(SGOT) (test code = 5969347156) 30 U/L 13-40 Lab Interpretation (test code = Abnormal 29098-3) [facility] GLUCOSE (AUTOMATED)2020-08-22 10:11:00 Test Item Value Reference Range Interpretation Comments POCT GLU (test code = 8465399897) 196 mg/dL 70-110 H Lab Interpretation (test code = Abnormal 99497-0) [facility] GLUCOSE (AUTOMATED)2020-08-22 07:15:00 Test Item Value Reference Range Interpretation Comments POCT GLU (test code = 5402615899) 183 mg/dL 70-110 H Lab Interpretation (test code = Abnormal 78309-0) [facility] GLUCOSE (AUTOMATED)2020-08-22 02:30:00 Test Item Value Reference Range Interpretation Comments POCT GLU (test code = 0815623853) 295 mg/dL 70-110 H Lab Interpretation (test code = Abnormal 41102-8) [facility] GLUCOSE (AUTOMATED)2020-08-21 23:46:00 Test Item Value Reference Range Interpretation Comments POCT GLU (test code = 6654023085) 258 mg/dL 70-110 H Lab Interpretation (test code = Abnormal 17760-4) [facility] HospitalC-REACTIVE [id number] 18:50:00 Test Item Value Reference Range Interpretation Comments CRP (test code = 4254525296) 15.5 mg/dL <0.8 H Lab Interpretation (test code = Abnormal 10024-3) [facility]PO[facility] (AUTOMATED)2020-08-21 18:21:00 Test Item Value Reference Range Interpretation Comments POCT GLU (test code = 7740175920) 297 mg/dL 70-110 H Lab Interpretation (test code = Abnormal 19670-5) [facility] HospitalETHANOL2020-11-09 16:24:00 Test Item Value Reference Range Interpretation Comments ALCOHOL (test code = <10 mg/dL 4274461319) JAMES (test code = Toxic Greater than or JAMES) equal to 80 mg/dL. NOTE: Whole blood values are approximately 10% to 15% lower than serum and plasma. [facility] HospitalGALV/CLC ONLY - URINE DRUG (IMMUNOASSAY) - 4 ER [id number] 15:36:00 Test Item Value Reference Range Interpretation Comments AMPHET (test code = Negative Negative 5339807982) Cocaine Metabolite (test Negative Negative code = 5639149134) OPIATES (test code = Presumptive Positive Negative A 6919555176) THC (test code = Negative Negative 5411724557) JAMES (test code = JAMES) Urine Drug Cutoff Ranges Amphetamine: ? 1,000 ng/mLCocaine: ? 150 ng/mLOpiates: ? 300 ng/mLCannabinoids: ?50 ng/mL The results are to be used only for medical (i.e., treatment) purposes. Unconfirmed screening results must not be used for non-medical purposes (e.g., employment testing, legal testing). Lab Interpretation (test Abnormal code = 71869-7) [facility] ONLY - SYPHILIS IGG/[id number] 15:04:00 Test Item Value Reference Range Interpretation Comments Syphilis IgG/IgM (test Non-reactive Non-reactive code = 67984-8) JAMES (test code = JAMES) Non-reactive - No serologic evidence of T. pallidum infection. Cannot exclude incubating or early syphilis. Submit a second specimen in 2-4 weeks if syphilis is clinically suspected. Equivocal - Further testing to follow. Reactive - Further testing to follow. Lab Interpretation (test Normal code = 97157-3) [facility] HospitalUrinalysis2020-11-09 14:52:00 Test Item Value Reference Range Interpretation Comments APPEARANCE (test code = Clear Clear 0590584037) COLOR (test code = Yellow Yellow 3587869146) PH (test code = 4.8-8.0 6451378681) SP GRAVITY (test code = 1.003-1.030 3071399892) GLU U QUAL (test code = 500 mg/dL Normal A 8320159220) BLOOD (test code = Negative Negative 8653084209) KETONES (test code = 20 mg/dL Negative A 7424505098) PROTEIN (test code = Negative Negative 2887-8) UROBILIN (test code = Normal Normal 8720821817) BILIRUBIN (test code = Negative Negative 9170185461) NITRITE (test code = Negative Negative 3137528168) LEUK RYAN (test code = Negative Negative 7661787062) RBC/HPF (test code = <1 See_Comment [Autom ated message] 5926490547) The system [employer] generated this result transmit ronan reference range : 0 - 3 HPF. The refe rence range was not u sed to interpret th is result as normal/abnormal . WBC/HPF (test code = See_Comment [Autom ated message] 0329272814) The system [employer] generated this result transmit ronan reference range : 0 - 5 HPF. The refe rence range was not u sed to interpret th is result as normal/abnormal . BACTERIA (test code = Negative Negative 0723697708) MUCOUS (test code = Slight Negative LPF A 2929626494) Lab Interpretation (test Abnormal code = 34565-5) [facility]ACTIV[facility] PARTIAL THRMPLAS [id number] 13:45:00 Test Item Value Reference Range Interpretation Comments APTT Patient (test code = See_Comment [ Automated message] 3173-2) The system [employer] generated this result transmitted ref erence range: 26 - 36 Seconds. The re ference range was not u sed to interpret this result as normal/abnor mal. Lab Interpretation (test Normal code = 80415-9) [facility] 13:45:00 Test Item Value Reference Range Interpretation Comments POCT GLU (test code = 6896240398) 246 mg/dL 70-110 H Lab Interpretation (test code = Abnormal 95682-2) [facility] WITH [id number] 12:32:00 Test Item Value Reference Range Interpretation Comments HIV Negative Negative Semi-quantitative (test code = 06362-8) JAMES (test code = Non-reactive for HIV-1 JAMES) antigen and HIV-1/HIV-2 antibodies. ?No laboratory evidence of HIV infection. ?Repeat in 2-4 weeks if acute HIV infection is suspected. [facility] WITH [id number] 12:18:00 Test Item Value Reference Range Interpretation Comments WBC (test code = See_Comment [Automated 5090-2) message] The sy stem which [...] RDW-SD (test code = 44.4 fL 38.5-51.6 79144-5) RDW-CV (test code = 14.5 % 12.1-15.4 788-0) PLT (test code = See_Comment H [Automated 777-3) message] The sy stem which generated this result transmitted reference range : 150 - 328 10*3/ ?L. The reference r torito was not used to interpret this result as normal/abnormal . MPV (test code = 8.5 fL 9.8-13 L 10921-1) NRBC/100 WBC (test See_Comment [Automat ed code = 4824815484) message] The system which generated this result transmitted reference range : 0.0 - 10.0 /100 WBCs. The refer ence range was not u sed to interpret th is result as normal/abnormal . NRBC x10^3 (test code <0.01 See_Comment [Auto mated = 7258209190) message] The s ystem which generated this result transmitted reference range : 10*3/?L. The reference range was not used to interpret this result as normal/abnormal . GRAN MAT (NEUT) % 90.4 % (test code = 770-8) IMM GRAN % (test code 1.30 % = 3122668199) LYMPH % (test code = 7.1 % 736-9) MONO % (test code = 0.5 % 5905-5) EOS % (test code = 0.1 % 713-8) BASO % (test code = 0.6 % 706-2) GRAN MAT x10^3(ANC) 7.74 10*3/uL 1.99-6.95 H (test code = 5971026947) IMM GRAN x10^3 (test 0.11 10*3/uL 0-0.06 H code = 7494158247) LYMPH x10^3 (test code 0.61 10*3/uL 1.09-3.23 L = 731-0) MONO x10^3 (test code 0.04 10*3/uL 0.36-1.02 L = 742-7) EOS x10^3 (test code = <0.03 0.06-0.53 L 711-2) BASO x10^3 (test code 0.05 10*3/uL 0.01-0.09 = 704-7) POLYCHROMASIA (test 2+ See_Comment [Automa ronan code = 22324-3) message] The system which generated this result transmitted reference range : 2+. The referen ce range was not u sed to interpret th is result as normal/abnormal . BANDS (test code = Increased A 8505208714) Lab Interpretation Abnormal (test code = 09716-2) [facility] HospitalPROCALCITONIN2020-11-09 11:48:00 Test Item Value Reference Range Interpretation Comments Procalcitonin (test 0.36 ng/mL <0.07 H code = 3412269292) JAMES (test code = JAMES) INTERPRETATION OF [...] lung abscess/empyema. For further information please refer to:[email or web address] Lab Interpretation Abnormal (test code = 16926-2) [facility] HospitalLAGAATE [id number] 10:53:00 Test Item Value Reference Range Interpretation Comments LDH (test code = 1010958539) 351 U/L 300-600 Lab Interpretation (test code = Normal 53993-0) [facility] HospitalSEDIMENTATION [id number] 10:07:00 Test Item Value Reference Range Interpretation Comments ESR (test code = See_Comment H [Automated message] 3199167754) The system [employer] generated this result transmitted ref erence range: 0 - 10 m m/HR. The reference r torito was not used to interpret this result as normal/abnor mal. Lab Interpretation (test Abnormal code = 90781-5) [facility] HospitalPOGA GLUCOSE (AUTOMATED)2020-08-21 09:45:00 Test Item Value Reference Range Interpretation Comments POCT GLU (test code = 0303617269) 287 mg/dL 70-110 H Lab Interpretation (test code = Abnormal 61950-8) [facility] HospitalGlycosylated Hemoglobin (A1C)2020-08-21 09:29:00 Test Item Value Reference Range Interpretation Comments HGB A1C (test code = 4548-4) 9.8 % 4-6 H Lab Interpretation (test code = Abnormal 95641-6) [facility] HospitalCOVID-19 (ID NOW RAPID TESTING)2020-08-21 09:13:00 Test Item Value Reference Range Interpretation Comments SARS-CoV-2 Rapid ID NOW Not Detected Not Detected (test code = 81046-3) JAMES (test code = JAMES) ID NOW COVID-19 Assay is an isothermal nucleic acid amplification test intended for the qualitative detection of nucleic acid from SARS-CoV-2 viral RNA in nasopharyngeal (CARDIOVASCULAR TECHNOLOGIST) specimens. It is used under Emergency Use [...] indicated. Lab Interpretation Normal (test code = 18179-3) [facility] HospitalProthrombin Time / [id number] 08:59:00 Test Item Value Reference Range Interpretation Comments PROTIME PATIENT (test See_Comment H [Auto mated message] code = 5964-2) The system [employer] generated this result transmitted ref erence range: 10.1 - 1 2.6 Seconds. The reference range was not used to int erpret this result as normal/abnormal . INR (test code = 6301-6) Nor mal INR <1.1; Warfarin Therap eutic range 2.0 to 3. 0 or 2.5 to 3.5, dep ending upon the indica tions. Lab Interpretation (test Abnormal code = 31275-9) [facility] HospitalaPTT2020-11-09 08:59:00 Test Item Value Reference Range Interpretation Comments APTT Patient (test code = See_Comment [ Automated message] 3173-2) The system [employer] generated this result transmitted ref erence range: 26 - 36 Seconds. The re ference range was not u sed to interpret this result as normal/abnor mal. Lab Interpretation (test Normal code = 76456-3) [facility] HospitalBASI METABOLIC PANEL (NA, K, CL, CO2, GLUCOSE, BUN, CREATININE, CA)2020-08-21 08:52:00 Test Item Value Reference Range Interpretation Comments NA (test code = 136 mmol/L 135-145 9284741690) K (test code = 4.3 mmol/L 3.5-5 4601035124) CL (test code = 104 mmol/L 98-108 2485214794) CO2 TOTAL (test code = 24 mmol/L 23-31 2836768598) AGAP (test code = 2-16 4963566192) BUN (test code = 8 mg/dL 7-23 9661547057) GLUCOSE (test code = 308 mg/dL 70-110 H 6612363610) CREATININE (test code = 0.72 mg/dL 0.6-1.25 4475918203) CALCIUM (test code = 7.8 mg/dL 8.6-10.6 L 9282784313) eGFR Calculation mL/min/1.73m2 (Non-) (test code = 0364637013) eGFR Calculation mL/min/1.73m2 () (test code = 0052892099) JAMES (test code = JAMES) Association of [...] tests). Lab Interpretation Abnormal (test code = 85011-9) [facility] HospitalHEPATIC FUNCTION PANEL (37866) (ALB,T.PRO,BILI T,BU/BC,ALT,AST,ALK PHOS)2020-08-21 08:52:00 Test Item Value Reference Range Interpretation Comments TOTAL BILI (test code = 9857781182) 0.8 mg/dL 0.1-1.1 BILI UNCON (test code = 3518088036) 0.3 mg/dL 0.1-1.1 BILI CONJ (test code = 0695290752) 0.0 mg/dL 0-0.3 T PROTEIN (test code = 5783032543) 5.7 g/dL 6.3-8.2 L ALBUMIN (test code = 8548915086) 2.7 g/dL 3.5-5 L ALK PHOS (test code = 3313535147) 245 U/L 34-122 H ALTv (test code = 1742-6) 37 U/L 5-50 AST(SGOT) (test code = 5625351566) 43 U/L 13-40 H Lab Interpretation (test code = Abnormal 92889-8) [facility]
[2022-01-08] MEDS ORDERED: CYCLOBENZAPRINE 10 MG TAB ONE (09:21)
[2022-01-08] MEDS ORDERED: NA CHLORIDE 0.9% 500 ML ONE ×2 (09:21→10:45)
[2022-01-08] MEDS ORDERED: HYDROMORPHONE HCL 1 MG/ML INJ ONE (09:34)
--- NOTE | 2022-01-08 09:51 | RAD REPORT ---
EXAM DESCRIPTION: US - Extremity Venous Uni Ltd - 01/08/2022 9:44 am CLINICAL HISTORY: Swelling COMPARISON: None. TECHNIQUE: Real-time sonographic evaluation of the right lower extremity deep venous system was perf ormed. FINDINGS: Normal compressibility, flow augmentation, phasic flow and spontaneous flow is identified in the right lower extremity deep venous system. No intraluminal filling defects seen. IMPRESSION: No DVT in the right lower extremity.
[2022-01-08 10:06] LABS: Absolute Lymphocytes (CBC) 1.8 K/uL (0.7-4.9); Hematocrit 42.5 % (39.6-49.0); MPV 6.5 fL (7.6-11.3); RBC Red Blood Cell Count 5.16 M/uL (4.33-5.43)
[2022-01-08 10:20] LABS: Potassium 3.8 mmol/L (3.5-5.1)
--- NOTE | 2022-01-08 11:20 | EDPHYS ---
Physician Documentation [facility] Name: Kiel Ngo Age: 71 yrs Sex: Male : 1950 Arrival Date: 01/08/2022 Time: 09:08 Bed 17 Private MD: ED Physician Scotty Guzman HPI: 01/08 09:13 This 71 yrs old Male presents to ER via EMS with complaints of Right groin/ leg pain. ms3 09:13 The patient presents with pain. The complaints affect the medial aspect of right thigh. ms3 Context: The problem was sustained at home, resulted from a chronic condition, the patient is not able to bear weight, the patient is not able to ambulate, Problem is a result from a previous injury:. Onset: The symptoms/episode began/occurred and became worse 3 month(s) ago. Modifying factors: The symptoms are alleviated by nothing. the symptoms are aggravated by nothing. Associated signs and symptoms: The patient has no apparent associated signs or symptoms. 71-year-old male with past medical history of atrial fibrillation, chronic back pain, chronic right leg pain, presents for right groin pain that has been ongoing for months. Patient states he is currently out of his home Dilaudid. Patient denies alleviating or inciting factors. Patient states his pain is a 10/10 and describable.. Historical: - Allergies: 09:12 Demerol; jg9 09:12 metformin; jg9 09:12 Morphine; jg9 - PMHx: 09:12 Atrial fibrillation; chronic back pain; Chronic right leg pain; neuropathy; jg9 - PSHx: 09:12 back sx; PANCREAS SX; R. Ankle SX; jg9 - Immunization history:: Adult Immunizations not up to date. - Social history:: Smoking status: Patient denies any tobacco usage or history of. ROS: 09:13 Constitutional: Negative for fever, and chills. Eyes: Negative for injury, pain, ms3 redness, and discharge, Neck: Negative for injury, pain, and swelling, Cardiovascular: Negative for chest pain, and palpitations. Respiratory: Negative for shortness of breath, cough, wheezing, and pleuritic chest pain, Abdomen/GI: Negative for abdominal pain, nausea, vomiting, diarrhea, and constipation, Skin: Negative for injury, rash, and discoloration, Neuro: Negative for headache, weakness, numbness, tingling. Psych: Negative for depression, anxiety, suicide ideation, homicidal ideation, and hallucinations. 09:13 MS/extremity: Positive for pain. Exam: 09:13 Constitutional: This is a well developed, well nourished patient who is awake, alert, ms3 and in no acute distress. Eyes: Pupils equal round and reactive to light, extra-ocular motions intact. Lids and lashes normal. Conjunctiva and sclera are non-icteric and not injected. Periorbital areas with no swelling, redness, or edema. Chest/axilla: Normal chest wall appearance and motion. Nontender with no deformity. Cardiovascular: Regular rate and rhythm with a normal S1 and S2. No gallops, murmurs, or rubs. Normal PMI, no JVD. No pulse deficits. Respiratory: Lungs have equal breath sounds bilaterally, clear to auscultation and percussion. No rales, rhonchi or wheezes noted. No increased work of breathing, no retractions or nasal flaring. Abdomen/GI: Soft, non-tender, with normal bowel sounds. No distension or tympany. No guarding or rebound. No evidence of tenderness throughout. Skin: Warm, dry with normal turgor. Normal color with no rashes, no lesions, and no evidence of cellulitis. MS/ Extremity: Pulses equal, no cyanosis. Neurovascular intact. Full, normal range of motion. Psych: Awake, alert, with orientation to person, place and time. Behavior, mood, and affect are within normal limits. Vital Signs: 09:00 BP 161 / 93; Pulse 131; Resp 20 S; Temp 97.7(O); Pulse Ox 96% on R/A; Weight 83.91 kg jg9 (R); Height 5 ft. 11 in. (180.34 cm) (R); Pain 10/10; 09:30 BP 147 / 84; Pulse 133; Resp 18 S; Pulse Ox 96% on R/A; aa5 10:30 BP 166 / 87; Pulse 125; Resp 16 S; Pulse Ox 95% on R/A; aa5 11:30 BP 163 / 91; Pulse 113; Resp 16 S; Pulse Ox 95% on R/A; aa5 12:00 Pulse 107; Pulse Ox 96% on R/A; aa5 12:30 BP 165 / 88; Pulse 99; Resp 16 S; Pulse Ox 96% on R/A; aa5 09:00 Body Mass Index 25.80 (83.91 kg, 180.34 cm) jg9 MDM: 09:08 Patient medically screened. ms3 09:13 Differential diagnosis: Muscle spasm vs DVT vs msk pain. ms3 10:32 ED course: Patient with tachycardia and elevated WBC. Patient states pain improved. HR ms3 improved to 110 at this time. Patient denies fevers, chills, nausea, abdominal pain, cough. Will obtain lactate.. 11:20 Data reviewed: vital signs, nurses notes, lab test result(s). Counseling: I had a ms3 detailed discussion with the patient and/or guardian regarding: the historical points, exam findings, and any diagnostic results supporting the discharge/admit diagnosis, lab results, the need for outpatient follow up, to return to the emergency department if symptoms worsen or persist or if there are any questions or concerns that arise at home. ED course: No source of infection found. Patient states he is feeling better and agrees with discharge. Patient denies abdominal pain, headache, fevers, chills. Strict return precautions given. Patient states he did not take his metoprolol this AM. Metoprolol given in the ED. Patient to follow up with his physician as discussed. All questions answered. On re-evaluation patient is a/o x4, nad, non-toxic, speaking full sentences.. 01/08 09:12 Order name: CBC with Diff; Complete Time: 10:22 01/08 09:12 Order name: BMP; Complete Time: 10:22 01/08 09:11 Order name: Extremity Venous Uni Ltd US; Complete Time: 09:57 01/08 10:31 Order name: Lactate; Complete Time: 11:18 01/08 10:50 Order name: COVID-19/FLU A+B (Document "Date of Onset" if Symptomatic); Complete Time: 11:51 Administered Medications: 09:40 Drug: Flexeril (cyclobenzaprine) 10 mg Route: PO; aa5 10:50 Follow up: Response: No adverse reaction; Pain is decreased aa5 09:40 Drug: NS 0.9% 1000 ml Route: IV; Rate: 500 ml/hr; Site: right forearm; aa5 10:50 Follow up: IV Status: Completed infusion; IV Intake: 500ml aa5 09:40 Drug: Dilaudid (HYDROmorphone) 1 mg Route: IVP; Site: right forearm; aa5 10:50 Follow up: Response: No adverse reaction; Pain is decreased aa5 10:50 Drug: NS 0.9% 500 ml Route: IV; Rate: bolus; Site: right antecubital; jg9 11:30 Follow up: IV Status: Completed infusion; IV Intake: 500ml aa5 11:30 Drug: Metoprolol TARTRATE 50 mg Route: PO; aa5 12:30 Follow up: Response: No adverse reaction aa5 Disposition Summary: 01/08/22 11:20 Discharge Ordered Location: Home ms3 Condition: Stable ms3 Diagnosis - right groin pain ms3 - leukocytosis ms3 - tachycardia ms3 Followup: ms3 - With: Madhu Francois DO - When: 1 - 2 days - Reason: Recheck today's complaints Discharge Instructions: - Discharge Summary Sheet ms3 - Musculoskeletal Pain ms3 Forms: - Medication Reconciliation Form ms3 - Thank You Letter ms3 - Antibiotic Education ms3 - Prescription Opioid Use ms3 Signatures: Dispatcher [employer] Nuria Walker, RN RN aa5 Scotty Guzman DO DO ms3 Roxane Sanchez RN RN jg9
--- NOTE | 2022-01-08 11:20 | ER ---
Nurse's Notes [facility] Name: Kiel Ngo Age: 71 yrs Sex: Male : 1950 Arrival Date: 01/08/2022 Time: 09:08 Bed 17 Private MD: Diagnosis: right groin pain;leukocytosis;tachycardia Presentation: 01/08 09:00 Chief complaint: Patient states: Patient reports acute pain to the r groin radiating jg9 down the leg since October, patient is on Dilaudid PO at home but has been out of meds for a few days, patient also has a pain pump in [facility] region that has not been filled in over a year due to it breaking. Coronavirus screen: Vaccine status: Patient reports being unvaccinated. Ebola Screen: Patient negative for fever greater than or equal to 101.5 degrees Fahrenheit, and additional compatible Ebola Virus Disease symptoms Patient denies exposure to infectious person. Patient denies travel to an Ebola-affected area in the 21 days before illness onset. Initial Sepsis Screen: Does the patient meet any 2 criteria? HR > 90 bpm. Does the patient have a suspected source of infection? No. Patient's initial sepsis screen is negative. Risk Assessment: Do you want to hurt yourself or someone else? Patient reports no desire to harm self or others. Onset of symptoms was October 13, 2021. 09:00 Method Of Arrival: EMS: [facility] jg9 09:00 Acuity: JOZEF 4 jg9 Triage Assessment: 09:13 General: Appears in no apparent distress. Behavior is calm, cooperative. Pain: jg9 Complains of pain in pelvis and right leg-r groin radiating down the r leg Pain radiates to right leg Pain currently is 10 out of 10 on a pain scale. Historical: - Allergies: 09:12 Demerol; jg9 09:12 metformin; jg9 09:12 Morphine; jg9 - PMHx: 09:12 Atrial fibrillation; chronic back pain; Chronic right leg pain; neuropathy; jg9 - PSHx: 09:12 back sx; PANCREAS SX; R. Ankle SX; jg9 - Immunization history:: Adult Immunizations not up to date. - Social history:: Smoking status: Patient denies any tobacco usage or history of. Screenin:13 Abuse screen: Denies threats or abuse. Denies injuries from another. Nutritional jg9 screening: No deficits noted. Tuberculosis screening: No symptoms or risk factors identified. Fall Risk None identified. Assessment: 09:30 General: Appears uncomfortable, Behavior is calm, cooperative. Pain: Complains of pain aa5 in right groin Pain radiates to right leg Pain currently is 10 out of 10 on a pain scale. Quality of pain is described as sharp, shooting, tender, Pain began 3 months ago Is intermittent. Neuro: Level of Consciousness is awake, alert, obeys commands, Oriented to person, place, time, situation. Cardiovascular: Heart tones S1 S2 present Rhythm is sinus tachycardia. Respiratory: Airway is patent Respiratory effort is even, unlabored, Respiratory pattern is regular, symmetrical. GI: Abdomen is round non-distended, Bowel sounds present X 4 quads. Abd is soft and non tender X 4 quads. Reports nausea/vomiting yesterday Patient currently denies diarrhea. : No signs and/or symptoms were reported regarding the genitourinary system. EENT: No signs and/or symptoms were reported regarding the EENT system. Derm: Skin is pink, warm \T\ dry. Musculoskeletal: Pt is non-ambulatory. 09:40 Reassessment: Patient is alert, oriented x 3, equal unlabored respirations, skin aa5 warm/dry/pink. 10:50 Reassessment: Patient is alert, oriented x 3, equal unlabored respirations, skin aa5 warm/dry/pink. Patient states feeling better. General: Appears comfortable. Pain: Pain currently is 8 out of 10 on a pain scale. 12:50 Reassessment: Patient is alert, oriented x 3, equal unlabored respirations, skin aa5 warm/dry/pink. Vital Signs: 09:00 BP 161 / 93; Pulse 131; Resp 20 S; Temp 97.7(O); Pulse Ox 96% on R/A; Weight 83.91 kg jg9 (R); Height 5 ft. 11 in. (180.34 cm) (R); Pain 10/10; 09:30 BP 147 / 84; Pulse 133; Resp 18 S; Pulse Ox 96% on R/A; aa5 10:30 BP 166 / 87; Pulse 125; Resp 16 S; Pulse Ox 95% on R/A; aa5 11:30 BP 163 / 91; Pulse 113; Resp 16 S; Pulse Ox 95% on R/A; aa5 12:00 Pulse 107; Pulse Ox 96% on R/A; aa5 12:30 BP 165 / 88; Pulse 99; Resp 16 S; Pulse Ox 96% on R/A; aa5 09:00 Body Mass Index 25.80 (83.91 kg, 180.34 cm) jg9 ED Course: 09:08 Patient arrived in ED. bd 09:08 Scotty Guzman DO is Attending Physician. ms3 09:12 Triage completed. jg9 09:13 Nuria Antonio, RN is Primary Nurse. aa5 09:13 Arm band placed on right wrist. jg9 09:30 Patient has correct armband on for positive identification. Placed in gown. Bed in low aa5 position. Call light in reach. Side rails up X2. bus driver/monitor on. Pulse ox on. NIBP on. 09:39 Extremity Venous Uni Ltd US In Process Unspecified. EDMS 09:40 Initial lab(s) drawn, by me, sent to lab. Inserted saline lock: 22 gauge in right aa5 forearm, using aseptic technique. Blood collected. 11:19 Madhu Francois DO is Referral Physician. ms3 12:50 No provider procedures requiring assistance completed. IV discontinued, intact, aa5 bleeding controlled, No redness/swelling at site. Pressure dressing applied. Administered Medications: 09:40 Drug: Flexeril (cyclobenzaprine) 10 mg Route: PO; aa5 10:50 Follow up: Response: No adverse reaction; Pain is decreased aa5 09:40 Drug: NS 0.9% 1000 ml Route: IV; Rate: 500 ml/hr; Site: right forearm; aa5 10:50 Follow up: IV Status: Completed infusion; IV Intake: 500ml aa5 09:40 Drug: Dilaudid (HYDROmorphone) 1 mg Route: IVP; Site: right forearm; aa5 10:50 Follow up: Response: No adverse reaction; Pain is decreased aa5 10:50 Drug: NS 0.9% 500 ml Route: IV; Rate: bolus; Site: right antecubital; jg9 11:30 Follow up: IV Status: Completed infusion; IV Intake: 500ml aa5 11:30 Drug: Metoprolol TARTRATE 50 mg Route: PO; aa5 12:30 Follow up: Response: No adverse reaction aa5 Intake: 10:50 IV: 500ml; Total: 500ml. aa5 11:30 IV: 500ml; Total: 1000ml. aa5 Outcome: 11:20 Discharge ordered by ms3 12:50 Discharged to home via [facility] aa5 12:50 Condition: stable 12:50 Discharge instructions given to patient, EMS, Instructed on discharge instructions, follow up and referral plans. Demonstrated understanding of instructions, follow-up care. 12:54 Patient left the ED. dw3 Signatures: Dispatcher [employer] EDMS Karin Solorzano Audri, RN RN aa5 Scotty Guzman DO DO ms3 Roxane Sanchez, RN RN jg9 Graciela Louis RN RN dw3 Corrections: (The following items were deleted from the chart) 13:03 12:55 No provider procedures requiring assistance completed. aa5 aa5 13:03 12:55 IV discontinued, intact, bleeding controlled, No redness/swelling at site. aa5 Pressure dressing applied, aa5
[2022-01-08] MEDS ORDERED: METOPROLOL TAR 50 MG TAB ONE (11:29)
[2022-01-08 11:51] LABS: SARS-COV-2 RT PCR NEGATIVE (NEGATIVE)
[2022-01-08 13:10] VITALS: O2SAT 95
[2022-01-08 13:11] VITALS: BP 163/91
== END 2022-01-08 12:54 | disposition home or self-care (01) ==
LOC: ER 09:04
DX: D72.829 Elevated white blood cell count, unspecified (principal); R00.0 Tachycardia, unspecified; I48.91 Unspecified atrial fibrillation; Z20.822 Contact with and (suspected) exposure to COVID-19; Z88.5 Allergy status to narcotic agent; Z88.8 Allergy status to other drugs, medicaments and biological substances
CPT/HCPCS: 96361; 85025; 80048; 36415; 83605; 0240U; 93971; 96374; 99284; J1170; J7040 ×2

== ENCOUNTER 2022-01-11 20:08 | Emergency (ER) | payer OTHER ==
--- OUTSIDE RECORDS SUMMARY | 2022-01-11 20:18 | XMS REPORT | Continuity of Care Document ---
:1950 Author Organization [facility] t Address [address] [place] [address] Dr. Motley [address] [place] [id number] Care Team Providers Name Role Phone DIOGENES Primary Care Physician Unavailable CECILIO [place] Attending Clinician Unavailable GIRISH Attending [...] Policy Number Effective Date Expiration Date S [facility] MEDICARE PART A [id number] 2007 \\T\\ B 00:00:00 [employer] INDEMNITY [id number] 2016 00:00:00 MEDICARE PART A [id number] 2014 \\T\\ B - MEDICARE 00:00:00 INDEMNITY/TRADITIO [id number] NAL CHOICE - [employer] 00:00:00 Problems Condition [...] ents Source Name Type Date Date Clinician [place] Propensi Active Rash 2019- Univers ty to 1-10 ity of adverse 00:00: [place] reaction 00 Medical s Branch PEACH DRUG Active Rash 2019- Univers INGREDI 1-10 ity of 00:00: [place] 00 Medical Branch Lidocain Drug Active Itching 2020- Univers e Allergy -09 ity of 00:00: [...] vers NE INGREDI 3-16 ity of 00:00: [place] 00 [facility] Branch GLIMEPIR DRUG Active Hives Univers EFREN INGREDI 3-16 ity of 00:00: [place] 00 Medical Branch METFORMI DRUG Active ITCHING Univers N INGREDI 3-16 ity of 00:00: [place] [address] Medical Branch Social History Social Habit Start Date Stop Date Quantity Comments Source Exposure to Not sure University of SARS-CoV-2 [facility] (event) Branch History of Chews Tobacco University of tobacco use [facility] History SDFL 2020-11-17 2020-11-17 5 University o f Financial 00:00:00 00:00:00 [facility] Branch History SDFL Food 2020-11-17 2020-11-17 1 Univers ity of Worry 00:00:00 00:00:00 [facility] History [facility] Food 2020-11-17 2020-11-17 1 Univers ity of Scarcity 00:00:00 00:00:00 [facility] History [facility] 2020-11-17 2020-11-17 1 University o f Transport Med 00:00:00 00:00:00 [facility] al Branch History [facility] 2020-11-17 2020-11-17 1 University o f Transport Non-Med 00:00:00 00:00:00 [facility] edical Branch Education 2020-11-16 2020-11-16 21 [place] of 00:00:00 00:00:00 [facility] Alcohol intake 2020-11-16 2020-11-16 Ex-drinker [facility] 00:00:00 00:00:00 (finding) [facility] Tobacco use and 2020-08-21 2020-08-21 Former user Universi ty of exposure 00:00:00 00:00:00 [facility] Tobacco Comment 2020-08-21 2020-08-21 quit 10 years Univer sity of 00:00:00 00:00:00 ago, started in [place] Med ica 2nd year of Branch college (~40 years) Alcohol Comment 2020-08-21 2020-08-21 Used to have 2-3 Uni versity of 00:00:00 00:00:00 six-packs of [place] Medica l beer daily x 20 Branch years, quit 2005 History SDFL 2020-08-21 2020-08-21 99 University o f Alcohol Frequency 00:00:00 00:00:00 [place] M edical Branch History SDFL 2020-08-21 2020-08-21 99 [place] o f Alcohol Std 00:00:00 00:00:00 [place] Medical Drinks Branch History [facility] 2020-08-21 2020-08-21 99 [place] o f Alcohol Binge 00:00:00 00:00:00 [facility] al Branch Sex [birth year] Universit y of 00:00:00 00:00:00 [place] [facility] Smoking Status Start Date Stop Date Source Never smoker [facility] Branch Medications Ordered Filled Start Stop Current Ordering Indication Dosage Frequency Signature Comments Components Source Medication Medication Date Date Medication? Clinician (SIG) Name Name FENTanyl PF 2020-10 100ug 100 mcg, Univers (SUBLIMAZE 10-22 Slow [...] tablet 18 times Medical daily. Branch INSULIN 2021-0 Yes 5U inject 5 Univer s ASPART [...] by ity of tablet 16:47: mouth at [place] 18 bedtime. Medical Branch HYDROmorpho Yes 4mg [...] 0845, Until Discontinu ed, Routine amLODIPine Yes [id number] 10mg Take 1 Univers 10 mg 3-07 tablet by ity of tablet 00:00: mouth [place] 00 daily. Medical Branch clotrimazol 0 Yes [id number] Apply to Univers e 1 % 3-07 face/ears, ity of topical 00:00: armpits, [place] cream 00 pannus and Medical back/any Branch other rash twice a day fluocinonid 0 Yes [id number] Apply to Univers e 0.05 % 3-07 scalp ity of solution 00:00: twice a [place] 00 day Medical Branch triamcinolo 0 Yes [id number] Apply to Univers ne 3-07 back, ity of acetonide 00:00: armpits [place] 0.1 % cream 00 and other Med ical affected Branch areas twice daily, please mix with clotrimazo le hydrOXYzine 0 Yes [id number] 10mg Take 1 Univers 10 mg 3-07 tablet by ity of tablet 00:00: mouth 2 00 (two) Medical times Branch daily. amLODIPine Yes [id number] 10mg Take 1 Univers 10 mg 3-07 tablet by ity of tablet 00:00: mouth 00 daily. Medical Branch clotrimazol 2020-0 Yes [id number] Apply to Univers e 1 % 3-07 face/ears, ity of topical 00:00: armpits, [place] cream 00 pannus and Medical back/any Branch other rash twice a day fluocinonid 2020-0 Yes [id number] Apply to Univers e 0.05 % 3-07 scalp ity of solution 00:00: twice a day Medical Branch triamcinolo 2020-0 Yes [id number] Apply to Univers ne 3-07 back, ity of acetonide 00:00: armpits [place] 0.1 % cream 00 and other Med ical affected Branch areas twice daily, please mix with clotrimazo le hydrOXYzine Yes [id number] 10mg Take 1 Univers 10 mg 3-07 tablet by ity of tablet 00:00: mouth 2 (two) Medical times Branch daily. amLODIPine Yes [id number] 10mg Take 1 Univers 10 mg 3-07 tablet by ity of tablet 00:00: mouth 00 daily. Medical Branch clotrimazol 0 Yes [id number] Apply to Univers e 1 % 3-07 face/ears, ity of topical 00:00: armpits, [place] cream 00 pannus and Medical back/any Branch other rash twice a day fluocinonid 2020-0 Yes [id number] Apply to Univers e 0.05 % 3-07 scalp ity of solution 00:00: twice a [place] 00 day Medical Branch triamcinolo 2020-0 Yes [id number] Apply to Univers ne 3-07 back, ity of acetonide 00:00: armpits [place] 0.1 % cream 00 and other Med ical affected Branch areas twice daily, please mix with clotrimazo le hydrOXYzine 2021-0 Yes [id number] 10mg Take 1 Univers 10 mg 3-07 tablet by ity of tablet 00:00: mouth 2 [place] 00 (two) Medical times Branch daily. amLODIPine Yes [id number] 10mg Take 1 Univers 10 mg 3-07 tablet by ity of tablet 00:00: mouth [place] 00 daily. Medical Branch clotrimazol Yes [id number] Apply to Univers e 1 % 3-07 face/ears, ity of topical 00:00: armpits, [place] cream 00 pannus and Medical back/any Branch other rash twice a day fluocinonid 0 Yes [id number] Apply to Univers e 0.05 % - scalp ity of solution 00:00: twice a [place] 00 day Medical Branch triamcinolo Yes [id number] Apply to Univers ne 3-07 back, ity of acetonide 00:00: armpits [place] 0.1 % cream 00 and other Med ical affected Branch areas twice daily, please mix with clotrimazo le hydrOXYzine Yes [id number] 10mg Take 1 Univers 10 mg 3-07 tablet by ity of tablet 00:00: mouth 2 [place] 00 (two) Medical times Branch daily. cephALEXin 2020-2020- No [id number] 500mg Take 1 Univers 500 mg 3-04 14- capsule by ity of capsule 00:00: 05:59 mouth [place] 00 :00 every 6 Medical (six) Branch hours for 3 days. cephALEXin 2020-0 202- No [id number] 500mg Take 1 Univers 500 mg 3-04 14-11 capsule by ity of capsule 00:00: 05:59 mouth [place] 00 :00 every 6 Medical (six) Branch hours for 3 days. hydrOXYzine 2020-0 2020- No [id number] 10mg Take 1 Univers 10 mg 3-04 14-07 tablet by ity of tablet 00:00: 00:00 mouth 2 [place] 00 :00 (two) Medical times Branch daily. morpHINE Yes 4mg 4 mg, Slow Uni vers injection 4 - IV Push, ity of mg 22:40: Q6HPRN, [place] 02 Starting Medical 12/16/20 Branch at 1640, [...] 4 mg, Slow Un toi injection 4 12-1606 IV Push, ity of mg 11:15: 10:58 [...] No 100mL 100 mL, Unive rs (OMNIPAQUE 12-1505 Intravenou it y of 350 22:24: 22:24 [...] IV [place] 500 mL 00 :00 Piggyback, [facility] ONCE, 1 Branch dose, Fri12/15/20 at 1000, STAT HYDROmorpho Yes 4mg 4 mg, Unive rs ne 12-15 Oral, BID, ity of (DILAUDID) 15:30: First dose [place] tablet 4 mg 00 (after Medica l last Branch modificati on) on Fri12/15/20 at 0930, Until Discontinu ed, Routine amLODIPine 2020- No [id number] 10mg Take 1 Univers 10 mg 12-15 tablet by ity of tablet 00:00: 00:00 mouth [place] 00 :00 daily. Medical Branch HYDROmorpho 2020- No 1mg 1 mg, Univ ers ne 12-14 Oral, ity of (DILAUDID) 17:35: 15:18 Q6HPRN, [place] tablet 1 mg 30 :06 Starting Medi jose c [facility] 12/14/20 Branch at 1135, Until Fri12/15/20 at 0918, Routine, Pain (scale 7-10) hydrOXYzine Yes 10mg 10 mg, Univ ers (ATARAX) 12-14 Oral, BID, ity o f tablet 10 17:30: First dose [place] mg 00 on [facility] Medical 12/14/20 at Branch 1130, Until Discontinu ed, Routine lisinopriL Yes 5mg 5 mg, Univer s (PRINIVIL,Z 12-14 Oral, ity of ESTRIL) 17:30: DAILY, [place] tablet 5 mg 00 First dose Me dical on [facility] Branch 12/14/20 at 1130, Until Discontinu ed, Routine triamcinolo 2020- No [id number] Apply to [facility] ne 12-14 back, ity of acetonide 00:00: 00:00 armpits [place] 0.1 % cream 00 :00 and other Med ical affected Branch areas twice daily, please mix with clotrimazo le clotrimazol 2020- No [id number] Apply to Univers e 1 % 12-14 face/ears, ity of topical 00:00: 00:00 armpits, [place] cream 00 :00 pannus and Medical back/any Branch other rash twice a day fluocinonid 2020- No [id number] Apply to Univers e 0.05 % 12-14 scalp ity of solution 00:00: 00:00 twice a [place] 00 :00 day Medical Branch hydrOXYzine 2020- No [id number] 10mg Take 1 Univers 10 mg 12-14 [...] IV Push, ity of (PF)) 10:07: Q6HPRN, [place] injection 4 28 Starting Medi jose c mg 12/13/20 Branch at 0407, Until Discontinu ed, Routine, Nausea and Vomiting (N/V) ondansetron 2020- No 4mg 4 mg, Slow Univers (ZOFRAN 12-13-03 IV Push, ity of (PF)) 04:55: 05:44 ONCE, 1 [place] injection 4 00 :00 dose, [facility] ical mg 12/12/20 at Branch 2300, Routine traMADoL 2020- No 50mg 50 mg, Univer s (ULTRAM) 12-13 03-03 Oral, ity of tablet 50 03:45: 03:34 ONCE, 1 [place] mg 00 :00 dose, [facility] 12/12/20 at Branch 2145, Routine insulin Yes 15U 15 Units, [facility] rs glargine 12-12 Subcutaneo ity o f (LANTUS 15:00: us, DAILY, [place] U-100) 00 First dose Medical injection on [facility] 15 Units 12/12/20 at 0900, Until [...] First dose [place] mg 00 on [facility] 12/11/20 at Branch 2100, Until Discontinu ed, Routine venlafaxine Yes 300mg 300 mg, Un toi XR (EFFEXOR 3-02 Oral, QHS, it y of XR) 24 hr 03:00: First dose [place] capsule 300 00 on [facility] Medica l mg 12/11/20 at Branch 2100, Until Discontinu ed, Routine fluocinonid Yes Topical, Un toi e (LIDEX) 12-12 BID, First ity of 0.05 % 02:00: dose on [place] solution 00 Fri12/11/20 Medic al at 2000, Branch Until Discontinu ed, Routine acetaminoph 2020- No 1{tbl} 1 tablet, Univers en-codeine 12-1105 Oral, ity of (TYLENOL 23:23: 13:49 Q6HPRN, [place] #3) 300-30 43 :08 Starting Medic al mg tablet 1 Fri12/11/20 Br anch tablet at 1723, Until Fri12/15/20 at 0749, Routine, Pain (scale 4-6) enoxaparin Yes 40mg 40 mg, Unive rs (LOVENOX) 12-11 Subcutaneo ity of injection 23:00: us, DAILY, [place] 40 mg 00 First dose Medical on Fri12/11/20 at 1700, Until Discontinu ed, Routine clotrimazol [...] of 1,000 mg in 19:00: 17:35 Piggyback, [place] NaCl 0.9% 00 :26 Q8H ABX, Medica [...] ed, Routine insulin Yes 5U 5 Units, [facility] s lispro 12-11 Subcutaneo ity of (human) 18:00: us, TID [place] (HumaLOG 00 MEALS, Medical U-100) First dose Branch injection 5 on Fri Units 12/11/20 at 1200, Until Discontinu ed Polyethylen Yes 17g 17 g, [facility] rs e Glycol 12-11 Oral, ity of 3350 17:47: Q21YOYU, [place] (MIRALAX) 05 Starting Medica l powder 17 g Fri12/11/20 Br anch at 1147, Until Discontinu ed, Routine, Constipati on acetaminoph Yes 650mg 650 mg, Un toi en 12-11 Oral, ity of (TYLENOL) 16:51: Q6HPRN, [place] tablet 650 28 Starting Medic al mg [...]
Duration of therapy: 72 hours sennosides- Yes [id number] 1{tbl} Take 1 Univers docusate 2-09 tablet by ity of sodium 00:00: mouth 2 [place] 8.6-50 mg 00 (two) Medical per tablet times Branch daily. hydrocortis Yes [id number] Apply to [facility] one 2.5 % 11-21 affected ity of cream 00:00: area(s) 2 [place] 00 (two) Medical times Branch daily. blood sugar Yes [id number] Use to [facility] diagnostic 11-21 check ity of (FREESTYLE 00:00: blood [place] LITE 00 glucose Medical STRIPS) 4-5 times Branch strip daily. Polyethylen Yes [id number] 17g Take 1 Univers e Glycol 2-09 Packet by ity of 3350 17 00:00: mouth [place] gram powder 00 every 24 Medi jose c (twenty-fo Branch ur) hours as needed for Constipati on. sennosides- Yes [id number] 1{tbl} Take 1 Univers docusate 2-09 tablet by ity of sodium 00:00: mouth 2 [place] 8.6-50 mg 00 (two) Medical per tablet times Branch daily. hydrocortis 2020-0 Yes [id number] Apply to Univers one 2.5 % 2-09 affected ity of cream 00:00: area(s) 2 [place] 00 (two) Medical times Branch daily. blood sugar 2020-0 Yes [id number] Use to [facility] diagnostic 11-21 check ity of (FREESTYLE 00:00: blood [place] LITE 00 glucose Medical STRIPS) 4-5 times Branch strip daily. Polyethylen 2020-0 Yes [id number] 17g Take 1 Univers e Glycol 2-09 Packet by ity of 3350 17 00:00: mouth [place] gram powder 00 every 24 Medi jose c (twenty-fo Branch ur) hours as needed for Constipati on. sennosides- 2020-0 Yes [id number] 1{tbl} Take 1 Univers docusate 2-09 tablet by ity of sodium 00:00: mouth 2 [place] 8.6-50 mg 00 (two) Medical per tablet times Branch daily. hydrocortis 2020-0 Yes [id number] Apply to Univers one 2.5 % 2-09 affected ity of cream 00:00: area(s) 2 [place] 00 (two) Medical times Branch daily. blood sugar 2020-0 Yes [id number] Use to [facility] diagnostic 11-21 check ity of (FREESTYLE 00:00: blood [place] LITE 00 glucose Medical STRIPS) 4-5 times Branch strip daily. Polyethylen 2020-0 Yes [id number] 17g Take 1 Univers e Glycol 2-09 Packet by ity of 3350 17 00:00: mouth [place] gram powder 00 every 24 Medi jose c (twenty-fo Branch ur) hours as needed for Constipati on. sennosides- 2020-0 Yes [id number] 1{tbl} Take 1 Univers docusate 2-09 tablet by ity of sodium 00:00: mouth 2 [place] 8.6-50 mg 00 (two) Medical per tablet times Branch daily. hydrocortis 2020-0 Yes [id number] Apply to Univers one 2.5 % 2-09 affected ity of cream 00:00: area(s) 2 [place] 00 (two) Medical times Branch daily. blood sugar Yes [id number] Use to [facility] diagnostic 11-21 check ity of (FREESTYLE 00:00: blood [place] LITE 00 glucose Medical STRIPS) 4-5 times Branch strip daily. Polyethylen Yes [id number] 17g Take 1 Univers e Glycol 11-21 Packet by ity of 3350 17 00:00: mouth [place] gram powder 00 every 24 Medi jose c (twenty-fo Branch ur) hours as needed for Constipati on. Insulin 2020- No [id number] 15U inject 15 Univers Glargine 11-21 Units ity of (LANTUS 00:00: 05:59 under the [place] SOLOSTAR 00 :00 skin every Medic al U-100 morning Branch INSULIN) for 30 100 unit/mL days. (3 mL) injection venlafaxine 2020- No [id number] 150mg Take 1 Univers XR 150 mg 11-21 capsule by ity of 24 hr 00:00: 05:59 mouth 3 [place] capsule 00 :00 (three) Medical times Branch daily for 30 days. Insulin 2020- No [id number] 15U inject 15 Univers Glargine 11-21 Units ity of (LANTUS 00:00: 05:59 under the [place] SOLOSTAR 00 :00 skin every Medic al U-100 morning Branch INSULIN) for 30 100 unit/mL days. (3 mL) injection venlafaxine 2020- No [id number] 150mg Take 1 Univers XR 150 mg 11-21 capsule by ity of 24 hr 00:00: 05:59 mouth 3 [place] capsule 00 :00 (three) Medical times Branch daily for 30 days. triamcinolo 2020- No [id number] Apply to [facility] ne 11-21 area(s) 2 ity of acetonide 00:00: 00:00 (two) [place] 0.1 % cream 00 :00 times Medical daily. Branch cephALEXin 2020- No [id number] 1000mg Take 2 Univers 500 mg 11-21 capsules ity of capsule 00:00: 00:00 by mouth 3 [place] 00 :00 (three) Medical times Branch daily. doxycycline 2020- No [id number] 100mg Take 1 Univers hyclate 100 11-21 capsule by i ty of mg capsule 00:00: 00:00 mouth [place] 00 :00 every 12 Medical (twelve) Branch hours. lactobacill 2020- No [id number] 1{tbl} Take 1 Univers us 11-21 tablet by ity of acidophilus 00:00: 00:00 mouth 2 [place] 25 million 00 :00 (two) Medical cell -100 times Branch mg captab daily. bisacodyL 2020- No [id number] 10mg Insert 1 Univers 10 mg 11-21 Suppositor ity of suppository 00:00: 00:00 y into [place] 00 :00 rectum at Medical bedtime as Branch needed for Constipati on. ALPRAZolam 2020- No [id number] .25mg Take 1 Univers (XANAX) 11-21 tablet by ity of 0.25 mg 00:00: 00:00 mouth 2 [place] tablet 00 :00 (two) Medical times Branch daily. hydrOXYzine 2020- No [id number] 20mg Take 2 Univers 10 mg 11-21 [...] 01:13: [place] INJECTION) 36 Medical Branch venlafaxine 2019- Yes 150mg Take 150 U nivers XR [...] Units ity of (LANTUS 01:13: under the [place] SOLOSTIA) 36 skin. Medical 100 unit/mL Branch (3 [...] Units ity of (LANTUS 01:13: under the [place] SOLOSTAR) 36 skin. Medical 100 unit/mL Branch [...] Units ity of (LANTUS 01:13: under the [place] SOLOSTAR) 36 skin. Medical 100 unit/mL Branch (3 mL) InPn INSULIN 2019- Yes 5U inject 5 Univer [...] Units ity of (LANTUS 01:13: under the [place] SOLOSTAR) 36 skin. Medical 100 unit/mL Branch (3 mL) InPn INSULIN 2019-10 Yes 5U inject 5 Univer s ASPART 1-12 Units ity of (NOVOLOG 01:13: under the [facility] s FLEXPEN SC) 36 skin. Medical [...] Units ity of (LANTUS 01:13: under the [place] SOLOSTAR) 36 skin. Medical 100 unit/mL Branch [...] 34 :00 Medical Branch hydrocortis 2019- Yes [id number] Apply to Univers one 2.5 % 1-11 affected ity of cream 00:00: area(s) 2 [place] 00 (two) Medical times Branch daily. hydrOXYzine 2019- Yes [id number] 20mg Take 2 Univers 10 mg 1-11 tablets by ity of tablet 00:00: mouth [place] 00 every 8 Medical (eight) Branch hours as needed for Itching or Anxiety. Polyethylen 2019- Yes [id number] 17g Take 1 Univers e Glycol 1-11 Packet by ity of 3350 17 00:00: mouth [place] gram powder 00 every 24 Medi jose c (twenty-fo Branch ur) hours as needed for Constipati on. hydrocortis 2019- Yes [id number] Apply to Univers one 2.5 % 1-11 affected ity of cream 00:00: area(s) 2 [place] 00 (two) Medical times Branch daily. hydrOXYzine 2019- Yes [id number] 20mg Take 2 Univers 10 mg 1-11 tablets by ity of tablet 00:00: mouth [place] 00 every 8 Medical (eight) Branch hours as needed for Itching or Anxiety. Polyethylen 2019- Yes [id number] 17g Take 1 Univers e Glycol 1-11 Packet by ity of 3350 17 00:00: mouth [place] gram powder 00 every 24 Medi jose c (twenty-fo Branch ur) hours as needed for Constipati on. hydrocortis 2019- Yes [id number] Apply to Univers one 2.5 % 1-11 affected ity of cream 00:00: area(s) 2 [place] 00 (two) Medical times Branch daily. hydrOXYzine 2019- Yes [id number] 20mg Take 2 Univers 10 mg 1-11 tablets by ity of tablet 00:00: mouth [place] 00 every 8 Medical (eight) Branch hours as needed for Itching or Anxiety. Polyethylen 2020- Yes [id number] 17g Take 1 Univers e Glycol 1-11 Packet by ity of 3350 17 00:00: mouth [place] gram powder 00 every 24 Medi jose c (twenty-fo Branch ur) hours as needed for Constipati on. hydrocortis 2019- Yes [id number] Apply to Univers one 2.5 % 1-11 affected ity of cream 00:00: area(s) 2 [place] 00 (two) Medical times Branch daily. hydrOXYzine 2019- Yes [id number] 20mg Take 2 Univers 10 mg 1-11 tablets by ity of tablet 00:00: mouth [place] 00 every 8 Medical (eight) Branch hours as needed for Itching or Anxiety. Polyethylen 2019- Yes [id number] 17g Take 1 Univers e Glycol 1-11 Packet by ity of 3350 17 00:00: mouth [place] gram powder 00 every 24 Medi jose c (twenty-fo Branch ur) hours as needed for Constipati on. hydrocortis 2019- Yes [id number] Apply to Univers one 2.5 % 1-11 affected ity of cream 00:00: area(s) 2 [place] (two) Medical times Branch daily. hydrOXYzine 2019- Yes [id number] 20mg Take 2 Univers 10 mg 1-11 tablets by ity of tablet 00:00: mouth [place] 00 every 8 Medical (eight) Branch hours as needed for Itching or Anxiety. Polyethylen 2019- Yes [id number] 17g Take 1 Univers e Glycol 1-11 Packet by ity of 3350 17 00:00: mouth [place] gram powder 00 every 24 Medi jose c (twenty-fo Branch ur) hours as needed for Constipati on. hydrocortis 2019- Yes [id number] Apply to Univers one 2.5 % 1-11 affected ity of cream 00:00: area(s) 2 [place] 00 (two) Medical times Branch daily. hydrOXYzine 2019- Yes [id number] 20mg Take 2 Univers 10 mg 1-11 tablets by ity of tablet 00:00: mouth [place] 00 every 8 Medical (eight) Branch hours as needed for Itching or Anxiety. Polyethylen 2020- Yes [id number] 17g Take 1 Univers e Glycol 1-11 Packet by ity of 3350 17 00:00: mouth [place] gram powder 00 every 24 Medi jose c (twenty-fo Branch ur) hours as needed for Constipati on. hydrocortis 2019-10 Yes [id number] Apply to Univers one 2.5 % 1-11 affected ity of cream 00:00: area(s) 2 [place] 00 (two) Medical times Branch daily. hydrOXYzine 2019-10 Yes [id number] 20mg Take 2 Univers 10 mg 1-11 tablets by ity of tablet 00:00: mouth [place] 00 every 8 Medical (eight) Branch hours as needed for Itching or Anxiety. Polyethylen 2019-10 Yes [id number] 17g Take 1 Univers e Glycol 1-11 Packet by ity of 3350 17 00:00: mouth [place] gram powder 00 every 24 Medi jose c (twenty-fo Branch ur) hours as needed for Constipati on. triamcinolo 2019-10 2020- No [id number] Apply to [facility] 10-23 area(s) 2 ity of acetonide 00:00: 05:59 (two) [place] 0.1 % cream 00 :00 times Medical daily for Branch 14 days. triamcinolo 2019-10 2020- No [id number] Apply to [facility] 10-23 area(s) 2 ity of acetonide 00:00: 05:59 (two) [place] 0.1 % cream 00 :00 times Medical daily for Branch 14 days. triamcinolo 2019-10 2020- No [id number] Apply to [facility] 10-23 area(s) 2 ity of acetonide 00:00: 05:59 (two) [place] 0.1 % cream 00 :00 times Medical daily for Branch 14 days. KCL 2019-10 2020- No 40meq 40 mEq, Univers (KLOR-CON 1- 11-10 Oral, ONCE ity of M20) tablet 16:15: 16:23 NOW, 1 [place] 40 mEq 00 :00 dose, [facility] 08/22/20 Branch at 1015, Routine HYDROmorpho 2019-10 Yes 1mg 1 mg, Unive rs ne 1- Oral, ity of (DILAUDID) 15:07: Q6HPRN, [place] tablet 1 mg 53 Starting Medi jose c [facility] Branch 08/22/20 at 0907, Until Discontinu ed, Routine, Pain (scale 7-10) hydrocortis 2019- Yes Topical Uni vers one 2.5 % 1-10 (Apply To ity o f cream 02:00: Affected [place] 00 Areas), Medical BID, First Branch dose on 08/21/20 at 2000, Until Discontinu ed, Routine triamcinolo 2019- Yes Topical, Un toi ne 1-10 BID, First ity of acetonide 02:00: dose on [place] (TRIDERM) 00 Mon Medical 0.1 % cream 08/21/20 at Br anch 2000, Until Discontinu ed, Routine hydrOXYzine 2019-10 Yes 20mg 20 mg, Univ ers (ATARAX) 09 Oral, ity of tablet 20 17:39: Q8HPRN, [place] mg 12 Starting Medical [facility] Branch 08/21/20 at 1139, Until Discontinu ed, Routine, Itching, Anxiety sennosides- 2019-10 Yes 1{tbl} 1 tablet, Univers docusate 10-21 Oral, ity of sodium 15:00: DAILY, [place] (SENOKOT-S) 00 First dose Me dical 8.6-50 mg on Fri Branch per tablet 08/21/20 at 1 tablet 0900, Until Discontinu ed, Routine hydrocortis 2019-10 2020- No Topical Un toi one 1 % 10-21 (Apply To ity of cream 15:00: 22:54 Affected [place] 00 :48 Areas), Medical DAILY, Branch First dose on Fri08/21/20 at 0900, Until Discontinu ed, Routine venlafaxine 2019-10 Yes 150mg 150 mg, Un toi XR (EFFEXOR 09 Oral, TID, it y of XR) 24 hr 14:00: First dose [place] capsule 150 00 on Mon Medica l mg 08/21/20 at Branch 0800, Until Discontinu ed, Routine heparin 2019-10 Yes 5000U 5,000 Univers (porcine) 10-21 Units, ity of injection 14:00: Subcutaneo [place] 5,000 Units 00 us, Q12H, Med ical First dose Branch on Fri08/21/20 at 0800, Until Discontinu ed, Routine diphenhydrA 2019-10 2020- No 25mg 25 mg, Uni vers MINE 10-21 Oral, ity of (BENADRYL) 12:56: 17:39 Q8HPRN, Jeff as tablet 25 59 :43 Starting Medica l mg [facility] 08/21/20 at 0656, Until [facility] 08/21/20 at 1139, Routine, Itching, Mild Rash, Congestion /Allergies , alternate with hydroxyzin e hydrOXYzine 2019-10 2020- No 10mg 10 mg, Uni vers (ATARAX) 10-21 Oral, ity of tablet 10 10:20: 12:57 Q6HPRN, [place] mg 22 :12 Starting [facility] 08/21/20 at 0420, Until [facility] 08/21/20 at 0657, Routine, Itching, Anxiety Sliding 2019-10 Yes Subcutaneo Univ ers Scale 10-21 us, Q4H, ity of Insulin - 10:00: First dose [place] Aspart 00 (after Medical (NOVOLOG) + last Branch Fsbg modificati Testing on) on [facility] 08/21/20 at 0400, Until Discontinu ed, Routine lidocaine 5 2019-10 2020- No Topical, U nivers % ointment 10-21 ONCE, 1 ity o f 09:30: 09:14 dose, [facility] 00 :00 08/21/20 at [facility] 0330, Branch Routine Polyethylen 2019-10 Yes 17g 17 g, [facility] rs e Glycol 10-21 Oral, ity of 3350 08:29: T23MAHW, [place] (MIRALAX) 09 Starting Medica l powder 17 g [facility] 08/21/20 at 0229, Until Discontinu ed, Routine, Constipati on lanolin 2019-10 Yes Topical, [facility] alcohol-mo- 10-21 PRN, ity of w.pet-ceres 08:26: [place] (EUCERIN) 30 [facility] cream 08/21/20 at Branch 0226, Until Discontinu ed, Routine, Dermatitis /Rash ALPRAZolam 2019-10 Yes .25mg 0.25 mg, Un toi (XANAX) 10-21 Oral, ity of tablet 0.25 08:25: BIDPRN, [place] as mg 41 Starting [facility] 08/21/20 at 0225, Until Discontinu ed, Routine, [...] hours. Branch blood sugar Yes Use to [facility] ers diagnostic -25 check ity of (FREESTYLE [...] [facility] ers diagnostic -25 check ity of (FREESTYLE [...] 13:00:00 148 mm[Hg] Univer sity of pressure [facility] Branch Diastolic blood 2021-08-22 13:00:00 84 mm[Hg] Unive rsity of pressure [facility] Heart rate 2021-08-22 13:00:00 103 /min [facility] Respiratory rate 2021-08-22 13:00:00 18 /min Univ ersity of [facility] Oxygen saturation in 2021-08-22 13:00:00 95 /min University of Arterial blood by [facility] Pulse oximetry Branch Body temperature 2021-08-22 12:22:00 36.72 [place] [facility] ersity of [facility] Branch Systolic blood 2020-12-17 18:35:00 139 mm[Hg] Univer sity of pressure [facility] Diastolic blood 2020-12-17 18:35:00 87 mm[Hg] Unive rsity of pressure [facility] [place] Heart rate 2020-12-17 18:35:00 110 /min [facility] Body temperature 2020-12-17 18:35:00 37.72 [place] Univ ersity of [facility] Respiratory rate 2020-12-17 18:35:00 18 /min Univ ersity of [facility] Oxygen saturation in 2020-12-17 18:35:00 93 /min University of Arterial blood by [email or web address] [facility] Pulse oximetry Branch Body height 2020-12-12 08:21:00 180.3 cm [facility] Body weight 2020-12-12 08:21:00 103.42 kg [facility] BMI 2020-12-12 08:21:00 31.80 kg/m2 [facility] Systolic blood 2020-12-17 18:35:00 139 mm[Hg] Univer sity of pressure [facility] Diastolic blood 2020-12-17 18:35:00 87 mm[Hg] Unive rsity of pressure [facility] Heart rate 2020-12-17 18:35:00 110 /min Universi ty of [facility] Body temperature 2020-12-17 18:35:00 37.72 [place] Univ ersity of [facility] Respiratory rate 2020-12-17 18:35:00 18 /min Univ ersity of [facility] Oxygen saturation in 2020-12-17 18:35:00 93 /min University of Arterial blood by [email or web address] jose c Pulse oximetry Branch Body height 2020-12-12 08:21:00 180.3 cm Universi ty [facility] [place] [facility] Body weight 2020-12-12 08:21:00 103.42 kg Universi ty [facility] BMI 2020-12-12 08:21:00 31.80 kg/m2 Universi ty [facility] Systolic blood 2020-08-23 19:27:00 140 mm[Hg] Univer sity of pressure [facility] Diastolic blood 2020-08-23 19:27:00 79 mm[Hg] Unive rsity of pressure [facility] Heart rate 2020-08-23 19:27:00 99 /min Universi ty [facility] Body temperature 2020-08-23 19:27:00 36 [place] Univ ersity of [facility] Respiratory rate 2020-08-23 19:27:00 18 /min Univ ersity of [facility] Oxygen saturation in 2020-08-23 19:27:00 93 /min University of Arterial blood by [email or web address] jose c Pulse oximetry Branch Body weight 2020-08-21 07:20:00 104.962 kg Universi ty of [facility] BMI 2020-08-21 07:20:00 32.27 kg/m2 [facility]i ty [facility] Systolic blood 2020-08-23 19:27:00 140 mm[Hg] Univer sity of pressure [facility] Diastolic blood 2020-08-23 19:27:00 79 mm[Hg] Unive rsity of pressure [facility] Heart rate 2020-08-23 19:27:00 99 /min Universi ty [facility] [place] [facility] Body temperature 2020-08-23 19:27:00 36 [place] Univ ersity of [place] [facility] Respiratory rate 2020-08-23 19:27:00 18 /min [facility] Oxygen saturation in 2020-08-23 19:27:00 93 /min University Arterial blood by [facility] Pulse oximetry [place] Body weight 2020-08-21 07:20:00 104.962 kg [facility] BMI 2020-08-21 07:20:00 32.27 kg/m2 [facility] Procedures Procedure Date / Time Performing Clinician Source Performed POCT GLUCOSE (AUTOMATED) 2020-12-17 15:42:00 Harrison, [facility]al [facility]ABOLIC PANEL 2020-12-17 10:45:00 Paul Bean [facility] (NA, K, CL, CO2, GLUCOSE, [place] Medica l Branch BUN, CREATININE, CA) CBC WITH DIFF 2020-12-17 10:45:00 Paul Bean [facility] POCT GLUCOSE (AUTOMATED) 2020-12-17 02:36:00 HarrisonFavio davisonal [facility] XR TIBIA FIBULA 2 VW LEFT 2020-12-16 23:38:00 [facility]SE (AUTOMATED) 2020-12-16 23:20:00 Harrison, Premal G Uni versity of [facility] POCT GLUCOSE (AUTOMATED) 2020-12-16 20:10:00 Harrison, Premal G Uni versity of [facility] POCT GLUCOSE (AUTOMATED) 2020-12-16 14:43:00 Harrison, Premal [facility] BASIC METABOLIC PANEL 2020-12-16 13:51:00 Paul Bean [facility] (NA, K, CL, CO2, GLUCOSE, [place] [facility] l Branch BUN, CREATININE, CA) CBC WITH DIFF 2020-12-16 13:51:00 Paul Bean [facility] POCT GLUCOSE (AUTOMATED) 2020-12-16 04:00:00 Harrison, Premal G Uni versity of [facility] POCT GLUCOSE (AUTOMATED) 2020-12-16 00:14:00 Harrison, Premal G Uni versity of [facility] CT CHEST PULMONARY 2020-12-15 22:29:38 Paul Bean [facility] ANGIOGRAM [facility] POCT GLUCOSE (AUTOMATED) 2020-12-15 19:26:00 Harrison, Premal G Uni versity of [facility] POCT GLUCOSE (AUTOMATED) 2020-12-15 15:13:00 Harrison, Premal G Uni versity of [facility] HB ECG ROUTINE & RHYTHM 2020-12-15 14:25:27 Cailin Romo [facility] Branch MAGNESIUM 2020-12-15 12:01:00 Paul Bean Sivakumar [facility] BASIC METABOLIC PANEL 2020-12-15 12:01:00 Paul Bean [facility] (NA, K, CL, CO2, GLUCOSE, [place] [facility] BUN, CREATININE, CA) CBC WITH DIFF 2020-12-15 12:01:00 Paul Bean Sivakumar [facility] POCT GLUCOSE (AUTOMATED) 2020-12-15 03:57:00 Harrison, Premal G Uni versity of [facility] POCT GLUCOSE (AUTOMATED) 2020-12-14 23:31:00 Harrison, Premal G Uni versity of [facility] POCT GLUCOSE (AUTOMATED) 2020-12-14 19:08:00 Harrison, Premal G Uni versity of [facility] POCT GLUCOSE (AUTOMATED) 2020-12-14 15:11:00 Harrison, Premal G Uni versity of [facility] POCT GLUCOSE (AUTOMATED) 2020-12-14 02:36:00 Harrison, Premal G Uni versity of [facility] POCT GLUCOSE (AUTOMATED) 2020-12-13 23:32:00 Harrison, Premal G Uni versity of [facility] POCT GLUCOSE (AUTOMATED) 2020-12-13 18:08:00 Harrison, Premal G Uni versity of [facility] BASIC METABOLIC PANEL 2020-12-13 15:39:00 Paul Bean [facility] (NA, K, CL, CO2, GLUCOSE, [place] [facility] BUN, CREATININE, CA) CBC WITH DIFF 2020-12-13 15:39:00 Paul Bean [facility] POCT GLUCOSE (AUTOMATED) 2020-12-13 14:06:00 Harrison, [facility]al [facility] PO[facility] GLUCOSE (AUTOMATED) 2020-12-13 03:07:00 Harrison, [facility] POCT GLUCOSE (AUTOMATED) 2020-12-12 23:52:00 Harrison, [facility] POCT GLUCOSE (AUTOMATED) 2020-12-12 20:28:00 Harrison, [facility]al [facility] POCT GLUCOSE (AUTOMATED) 2020-12-12 19:14:00 Harrison, Premal [facility] POCT GLUCOSE (AUTOMATED) 2020-12-12 14:33:00 Harrison, Premal [facility] MAGNESIUM 2020-12-12 08:58:00 Paul Bean Sivakumar [facility] BASIC METABOLIC PANEL 2020-12-12 08:58:00 Paul Bean [facility] (NA, K, CL, CO2, GLUCOSE, [place] [facility] BUN, CREATININE, CA) CBC WITH DIFF 2020-12-12 08:58:00 Paul Bean [facility] US ABDOMEN LIMITED 2020-12-12 06:32:26 Paul Bean [facility] POCT GLUCOSE (AUTOMATED) 2020-12-12 03:40:00 Hunter, Premal G Uni [facility] POCT GLUCOSE (AUTOMATED) 2020-12-12 00:06:00 Hunter, Premal G Uni [facility] XR HIPS 3 VW LEFT 2020-12-11 20:20:00 Paul Bean [facility] HB ECG ROUTINE & RHYTHM 2020-12-11 20:04:06 Cailin Romo [facility] VITAMIN B6, PLASMA 2020-12-11 19:17:00 Paul Bean [facility] POCT GLUCOSE (AUTOMATED) 2020-12-11 19:06:00 Rene Harrison [facility] CREATINE KINASE 2020-12-11 18:22:00 Clarisse Hannon [facility] VITAMIN B12, LEVEL 2020-12-11 18:22:00 Paul Bean [facility] FOLATE 2020-12-11 18:22:00 [facility] THYROID STIMULATING 2020-12-11 18:22:00 Cailin Romo [facility] HORMONE [facility] PROCALCITONIN 2020-12-11 18:22:00 [facility] VITAMIN B1 (THIAMINE), 2020-12-11 18:22:00 Paul Bean Sivakumar [facility] WHOLE BLOOD [facility] CT HEAD WO CONTRAST 2020-12-11 14:07:35 Sweetie [facility] URINALYSIS 2020-12-11 13:44:00 Singer [facility] URINE CULTURE 2020-12-11 13:44:00 Singer [facility] COVID-19 (ID NOW RAPID 2020-12-11 12:31:00 Paco Lacey [facility] TESTING) [facility] LAB ONLY COVID 2020-12-11 12:31:00 Singer [facility] XR CHEST 1 VW 2020-12-11 12:07:24 Singer [facility] BLOOD CULTURE SCREEN 2020-12-11 12:02:00 Paco Lacey [facility] Medical [place] MAGNESIUM 2020-12-11 12:02:00 Paul Bean Sivakumar [facility] FERRITIN SERUM 2020-12-11 12:02:00 Darnell Beanaham Sivakumar [facility] COMP. METABOLIC PANEL 2020-12-11 12:02:00 Paco Lacey [facility] ([id number]) Medical Branch CBC WITH DIFF 2020-12-11 12:02:00 Singer [facility] LACTIC ACID WHOLE BLOOD 2020-12-11 12:02:00 Paco Lacey [facility] BLOOD CULTURE SCREEN 2020-12-11 11:42:[address] [facility] EMERGENCY SERVICES 2020-12-11 06:01:00 Doctor Tabitha [facility] AGREEMENTS AND [place] [facility] AUTHORIZATIONS HOSPITAL ADMISSION 2020-12-11 06:01:00 Doctor Tabitha [facility] Name [facility] HEALTH - OTHER 2020-11-11 06:01:00 Doctor Tabitha [facility] Name Medical [facility] HEALTH - [facility] 2020-10-30 06:01:00 Doctor Tabitha [facility] Name [facility] EXTERNAL PROVIDER RECORDS 2020-09-01 06:01:00 Doctor Tabitha [facility] POCT GLUCOSE (AUTOMATED) 2020-08-23 18:09:00 Kelly [place] [facility] POCT GLUCOSE (AUTOMATED) 2020-08-23 14:14:00 Kelly [place] [facility] MAGNESIUM 2020-08-23 11:18:00 Ramya, [facility] BASIC METABOLIC PANEL 2020-08-23 11:18:00 [facility] (NA, K, CL, CO2, GLUCOSE, Medica l Branch BUN, CREATININE, CA) CBC WITH DIFF 2020-08-23 11:18:00 [facility] POCT GLUCOSE (AUTOMATED) 2020-08-23 10:21:00 [facility]SE (AUTOMATED) 2020-08-23 05:55:00 Kelly [facility] POCT GLUCOSE (AUTOMATED) 2020-08-23 03:00:00 Kelly [facility] POCT GLUCOSE (AUTOMATED) 2020-08-22 23:38:00 Kelly [facility] PO[facility]UCOSE (AUTOMATED) 2020-08-22 19:04:00 [facility] POCT GLUCOSE (AUTOMATED) 2020-08-22 13:49:00 Kelly [place] [facility] MAGNESIUM 2020-08-22 10:10:00 Ramya [facility] HEPATIC FUNCTION PANEL 2020-08-22 10:10:00 Jill Aguila [facility] ([id number]) (ALB,T.PRO,BILI Medical Branch T,BU/BC,ALT,AST,ALK PHOS) BASIC METABOLIC PANEL 2020-08-22 10:10:00 Lankin [facility] (NA, K, CL, CO2, GLUCOSE, Medica l Branch BUN, CREATININE, CA) LIPID PANEL ([id number])(TOTAL 2020-08-22 10:10:00 Lankin [facility] TRIGLYCERIDES, HDL) CBC WITH DIFF 2020-08-22 10:10:00 Lankin [facility] POCT GLUCOSE (AUTOMATED) 2020-08-22 10:10:00 Kelly [place] [facility] POCT GLUCOSE (AUTOMATED) 2020-08-22 07:13:00 Kelly [place] [facility] POCT GLUCOSE (AUTOMATED) 2020-08-22 02:24:00 Kelly [place] [facility] POCT GLUCOSE (AUTOMATED) 2020-08-21 23:40:00 Kelly [place] [facility] POCT GLUCOSE (AUTOMATED) 2020-08-21 18:10:00 Kelly [place] [facility] POCT GLUCOSE (AUTOMATED) 2020-08-21 13:39:00 Kelly [place] [facility] ETHANOL 2020-08-21 12:35:00 Jos Quiroz [facility] ACTIVATED PARTIAL 2020-08-21 12:35:[address] [facility] THRMPLAS [facility] GALV ONLY - SYPHILIS 2020-08-21 12:35:[address] IGG/IGM [facility] LACTATE DEHYDROGENASE 2020-08-21 10:09:00 Ramya, [facility] GALV/CLC ONLY - URINE 2020-08-21 10:09:00 Jos Quiroz [facility] DRUG (IMMUNOASSAY) - 4 ER Medica l Branch PANEL URINALYSIS 2020-08-21 10:09:00 Ramya, [facility] URINE CULTURE 2020-08-21 10:09:00 Lankin, [facility] PROCALCITONIN 2020-08-21 10:09:00 Ramya, [facility] POCT GLUCOSE (AUTOMATED) 2020-08-21 09:41:00 Kelly [place] [facility] PROTHROMBIN TIME / INR 2020-08-21 08:32:00 Lankin, [facility] ACTIVATED PARTIAL 2020-08-21 08:32:00 Lankin, [facility] THRMPLAS [facility] C-REACTIVE PROTEIN 2020-08-21 08:31:00 Lankin, [facility] HEPATIC FUNCTION PANEL 2020-08-21 08:31:00 Lankin, [facility] ([id number]) (ALB,T.PRO,BILI Medical [place] T,BU/BC,ALT,AST,ALK PHOS) BASIC METABOLIC PANEL 2020-08-21 08:31:00 Ramya, [facility] (NA, K, CL, CO2, GLU[facility] [place] BUN, CREATININE, CA) SEDIMENTATION RATE 2020-08-21 08:31:00 Lankin, [facility] CBC WITH DIFF 2020-08-21 08:31:00 Ramya, [facility] GLYCOSYLATED HEMOGLOBIN 2020-08-21 08:31:00 Lankin, [facility] (A1C) [facility] HIV 1/2 AG-AB WITH REFLEX 2020-08-21 08:31:00 Kelly [place] [facility] COVID-19 (ID NOW RAPID 2020-08-21 08:20:00 Lankin, [facility] TESTING) Medical Branch LAB ONLY COVID 2020-08-21 08:20:00 Ramya, H[facility] Encounters Start End Encounter Admission Attending Care Care Encounter Source Date/Time Date/Time Type Type Clinicians Facility Department ID 2020-08-21 Inpatient Shayy [place] [facility] [id number] Univers 01:07:[address] [facility] 2021-08-22 2021-08-22 [id number] Univers 06:21:00 08:02:[address] [facility] 2021-08-22 2021-08-22 Emergency [facility] [id number] Univers 06:21:00 08:02:00 Sweetie OREN [id number] i ty of [place] [id number] [facility] 084 [place] 2021-08-09 2021-08-09 Outpatient ZAKI, [facility] [id number] [facility] [place] 10:27:03 10:27:03 ADRIANA lopez of Medicin e 2020-12-28 2020-12-28 Telephone [facility] 1.2.840.114 [id number] 00:00:00 00:00:00 Calvin H PRIMARY [id number] CARE 4.2.7.2.686 PAVILLION [id number] 220 2020-12-28 2020-12-28 Telephone [facility] [place] 1.2.840.114 [id number] Univers 00:00:00 00:00:00 Calvin H PRIMARY [id number] it y of CARE 4.2.7.2.686 [facility] [id number] Mt dical 220 Branch 2020-12-19 2020-12-19 Transition Tuan Peters 1.2.840.114 [id number] 00:00:00 00:00:00 of Care Ruchi Braswell [id number] [place] 4.2.7.2.686 [id number] 2020-12-19 2020-12-19 Transition Tuan Peters 1.2.840.114 [id number] Univers 00:00:00 00:00:00 of Care Ruchi Braswell [id number] it y of [place].7.2.[place] [id number] [facility] 403 Branch 2020-12-11 2020-12-17 [facility] Paco Lacey 1.2.840.1 [id number] 05:11:00 16:00:00 Encounter Rene Harrison Monique [id number] [facility] [id number] [id number] [facility] 2020-12-11 2020-12-17 [facility] 1.2.840.1 [id number] [facility] 05:11:00 16:00:00 Encounter Rene Harrison [place] [id number] [facility] 4.2.7.2.686 [place] [id number] [place] [id number] [place] 2020-12-11 2020-12-11 Emergency X [facility] ERT [id number] Univers 05:11:00 05:11:00 [facility] 2020-11-16 2020-11-16 Emergency X [facility] ERT [id number] Univers 09:31:00 09:31:00 [facility] 2020-11-11 2020-11-11 Orders Doctor BAISLIA 1.2.840.114 [id number] 00:00:00 00:00:00 Only Unassigned, MONIQUE [id number] [place] [facility] 4.2.7.2.686 [id number] 2020-11-11 2020-11-11 Orders Doctor BASILIA 1.2.840.114 [id number] Univers 00:00:00 00:00:00 Only Unassigned, MONIQUE [id number] ity of [place] [facility] 4.2.7.2.686 Jeff as [phone] [facility] 009 Branch 2020-11-07 2020-11-07 Telephone Wilder [facility] [id number] 00:00:00 00:00:00 Angi Tobin [id number] [place] 4.2.7.2.686 Professio [id number] [facility] 2020-11-07 2020-11-07 Telephone [facility] [id number] [facility] 00:00:00 00:00:00 Angi Tobin [id number] ity of [place].7.2.[place] Professio [phone] [place] 845219 [facility] 2020-10-30 2020-10-30 Orders Doctor BASILIA 1.2.840.114 [id number] 00:00:00 00:00:00 Only Unassigned, MONIQUE [id number] [place] [facility] 4.2.7.2.686 [id number] [facility] 2020-10-30 2020-10-30 Orders Doctor BASILIA 1.2.840.114 [id number] Univers 00:00:00 00:00:00 Only Unassigned, MONIQUE [id number] ity of [place] [facility] 4.2.7.2.686 Jeff as [id number] [address] 2020-09-26 2020-09-26 [facility]phone [facility] 1.2.840.114 [id number] 00:00:00 00:00:00 [facility] [id number] CLINICS 4.2.7.2.686 [id number] [facility] 2020-09-26 2020-09-26 [facility]phone [facility] 1.2.840.114 [id number] Univers 00:00:00 00:00:00 [facility] [id number] i ty of CLINICS [place].2.[place] [id number] [address] 2020-09-01 2020-09-01 Orders Doctor BASILIA 1.2.840.114 [id number] 00:00:00 00:00:00 Only Unassigned, MONIQUE 350.1.13.10 [facility] [facility] 4.2.7.2.686 [id number] [id number] 2020-09-01 2020-09-01 Orders Doctor CUI 1.2.840.114 [id number] Univers 00:00:00 00:00:00 Only Unassigned, MONIQUE 350.1.13.10 ity of [facility] 4.2.7.2.686 Jeff as [phone] [facility] 009 Branch 2020-08-25 2020-08-25 Transition Tuan Peters 1.2.840.114 [id number] 00:00:00 00:00:00 of Care Ruchi Braswell [id number] [place] 4.2.7.2.686 [id number] [facility] 2020-08-25 2020-08-25 Transition Tuan Peters 1.2.840.114 [id number] [facility] 00:00:00 00:00:00 of Care Ruchi Garciay [id number] it y of [place] [id number] [place] [address] Branch 2020-08-21 2020-08-23 [facility] Ayleen 1.2.840.114 [id number] 01:07:00 18:35:00 Encounter Kelly Amaya [id number] [facility] 4.2.7.2.686 [id number] [facility] 2020-08-21 2020-08-23 [facility] 1. 2.840.114 [id number] [facility] 01:07:00 18:35:00 Encounter Mukul Gallardo 350.1.13. 10 ity [facility] 4.2.7.2.686 Jeff as [phone] [address] Results Test Description Test Time Test Comments Results Result Comments Source POCT GLUCOSE (AUTOMATED) 2020-12-17 15:43:35 Test Item Value Reference Range Interpretation Comme nts POCT GLU (test code = 5547496340) 129 mg/dL 70-110 H Lab Interpretation (test code = 39077-3) Abnormal [facility] METABOLIC PANEL (NA, K, CL, CO2, GLUCOSE, BUN, CREATININE, CA)2020-12-17 11:45:07 Test Item Value Reference Range Interpretation Comments NA (test code = 137 mmol/L 135-145 1929865150) K (test code = 3.5 mmol/L 3.5-5.0 1620411659) CL (test code = 103 mmol/L 98-108 0882607702) CO2 TOTAL (test code = 26 mmol/L 23-31 6511841297) AGAP (test code = 2-16 8235038072) BUN (test code = 11 mg/dL 7-23 8391302545) GLUCOSE (test code = 175 mg/dL 70-110 H [id number]) CREATININE (test code = 0.62 mg/dL 0.60-1.25 8948967671) CALCIUM (test code = 9.0 mg/dL 8.6-10.6 4154995825) eGFR Calculation mL/min/1.73m2 (Non-) (test code = 7391821138) eGFR Calculation mL/min/1.73m2 () (test code = 3226125037) JAMES (test code = JAMES) Association of [...] tests). Lab Interpretation Abnormal (test code = 55414-5) [facility] WITH [id number] 11:07:27 Test Item Value Reference Range Interpretation [...] RDW-SD (test code = 45.2 fL 38.5-51.6 42781-1) RDW-CV (test code = 16.9 % 12.1-15.4 H 788-0) PLT (test code = See_Comment H [Automated 777-3) message] The sy stem which generated this result transmitted reference range : 150 - 328 10*3/ ?L. The reference r torito was not used to interpret this result as normal/abnormal . MPV (test code = 8.1 fL 9.8-13.0 L 46608-9) NRBC/100 WBC (test See_Comment [Automat ed code = 6242628683) message] The system which generated this result transmitted reference range : 0.0 - 10.0 /100 WBCs. The refer ence range was not u sed to interpret th is result as normal/abnormal . NRBC x10^3 (test code <0.01 See_Comment [Auto mated = 6017642972) message] The s ystem which generated this result transmitted reference range : 10*3/?L. The reference range was not used to interpret this result as normal/abnormal . GRAN MAT (NEUT) % 72.8 % (test code = 770-8) IMM GRAN % (test code 0.60 % = 5122539990) LYMPH % (test code = 18.4 % 736-9) MONO % (test code = 5.7 % 5905-5) EOS % (test code = 1.8 % 713-8) BASO % (test code = 0.7 % 706-2) GRAN MAT x10^3(ANC) 8.23 10*3/uL 1.99-6.95 H (test code = 8146443735) IMM GRAN x10^3 (test 0.07 10*3/uL 0.00-0.06 H code = 4296484831) LYMPH x10^3 (test code 2.08 10*3/uL 1.09-3.23 = 731-0) MONO x10^3 (test code 0.65 10*3/uL 0.36-1.02 = 742-7) EOS x10^3 (test code = 0.20 10*3/uL 0.06-0.53 711-2) BASO x10^3 (test code 0.08 10*3/uL 0.01-0.09 = 704-7) Lab Interpretation Abnormal (test code = 45038-0) [facility] 06:03:38 Test Item Value Reference Range Interpretation Comments POCT GLU (test code = 4276777726) 75 mg/dL 70-110 Lab Interpretation (test code = Normal 67752-7) [facility], [id number] 00:01:00 Test Item Value Reference Range Interpretation Comments VIT B6 (test code = 13.1 nmol/L 20.0-125.0 L INTERPRE TIVE 42437-2) INFORMATION: Vi tamin B6 (Pyridoxal 5-Phosphate) Pyridoxal 5'-phosphate me asured in a specimen collected follo wing an 8-hour or overnight fast accurately clara cates vitamin B6 nutritional sta tus. Non-fasting spe cimen concentration reflects recent vitamin intake. This test was develo ped and its perform ance characteristics determined by [facility]. I t has not been cleare d or approved by the [place] Food and Drug Administration. This test was perfor med in a CLIA certifie d laboratory and is intended for cl inical purposes.Perfor med By: [employer] [address] [place] [address] [id number] Director: Namrata Klein MD Lab Interpretation Abnormal (test code = 69302-0) [facility] TIBIA FIBULA 2 VW [id number] 23:57:09 Tricompartmental knee joint osteoarthrosis.XR TIBIA FIBULA [...] No acute fracture or dislocation.IMPRESSIONTricompartmental knee joint osteoarthrosis.[facility] GLUCOSE (AUTOMATED) 2020-12-16 23:27:00 Test Item Value Reference Range Interpretation Comments POCT GLU (test code = 5327742438) 114 mg/dL 70-110 H Lab Interpretation (test code = Abnormal 19560-1) [facility] GLUCOSE (AUTOMATED)2020-12-16 20:12:00 Test Item Value Reference Range Interpretation Comments POCT GLU (test code = 9727944889) 105 mg/dL 70-110 Lab Interpretation (test code = Normal 05244-6) [facility] GLUCOSE (AUTOMATED)2020-12-16 14:44:00 Test Item Value Reference Range Interpretation Comments POCT GLU (test code = 5826076882) 153 mg/dL 70-110 H Lab Interpretation (test code = Abnormal 36412-2) [facility] METABOLIC PANEL (NA, K, CL, CO2, GLUCOSE, BUN, CREATININE, CA)2020-12-16 14:23:00 Test Item Value Reference Range Interpretation Comments NA (test code = 138 mmol/L 135-145 9657186562) K (test code = 3.4 mmol/L 3.5-5.0 L 5714881669) CL (test code = 100 mmol/L 98-108 6169491848) CO2 TOTAL (test code = 31 mmol/L 23-31 8382116580) AGAP (test code = 2-16 4641233366) BUN (test code = 11 mg/dL 7-23 5425549253) GLUCOSE (test code = 162 mg/dL 70-110 H 4349178157) CREATININE (test code = 0.64 mg/dL 0.60-1.25 5887779790) CALCIUM (test code = 8.9 mg/dL 8.6-10.6 0999711806) eGFR Calculation mL/min/1.73m2 (Non-) (test code = 2942567100) eGFR Calculation mL/min/1.73m2 () (test code = 6937551999) JAMES (test code = JAMES) Association of [...] tests). Lab Interpretation Abnormal (test code = 13607-7) [facility] WITH [id number] 14:05:00 Test Item Value Reference Range Interpretation [...] RDW-SD (test code = 45.4 fL 38.5-51.6 32441-6) RDW-CV (test code = 17.0 % 12.1-15.4 H 788-0) PLT (test code = See_Comment H [Automated 777-3) message] The sy stem which generated this result transmitted reference range : 150 - 328 10*3/ ?L. The reference r torito was not used to interpret this result as normal/abnormal . MPV (test code = 8.0 fL 9.8-13.0 L 17981-7) NRBC/100 WBC (test See_Comment [Automat ed code = 5190471242) message] The system which generated this result transmitted reference range : 0.0 - 10.0 /100 WBCs. The refer ence range was not u sed to interpret th is result as normal/abnormal . NRBC x10^3 (test code <0.01 See_Comment [Auto mated = 2763351974) message] The s ystem which generated this result transmitted reference range : 10*3/?L. The reference range was not used to interpret this result as normal/abnormal . GRAN MAT (NEUT) % 70.0 % (test code = 770-8) IMM GRAN % (test code 0.70 % = 9263751129) LYMPH % (test code = 20.5 % 736-9) MONO % (test code = 7.1 % 5905-5) EOS % (test code = 1.0 % 713-8) BASO % (test code = 0.7 % 706-2) GRAN MAT x10^3(ANC) 9.44 10*3/uL 1.99-6.95 H (test code = 0945308359) IMM GRAN x10^3 (test 0.09 10*3/uL 0.00-0.06 H code = 7383969778) LYMPH x10^3 (test code 2.76 10*3/uL 1.09-3.23 = 731-0) MONO x10^3 (test code 0.96 10*3/uL 0.36-1.02 = 742-7) EOS x10^3 (test code = 0.13 10*3/uL 0.06-0.53 711-2) BASO x10^3 (test code 0.10 10*3/uL 0.01-0.09 H = 704-7) Lab Interpretation Abnormal (test code = 43342-0) [facility] - Peripheral # [id number] 13:01:00 Test Item Value Reference Range Interpretation Comments Blood Culture-Aerobic No organisms No growth Previo us (test code = 05582-3) isolated prelim inary verified result was Culture In Progress on 12/11/2020 at 100 1 CSTPrevious preliminary verified result was No growth a t 24 hours on 12/12/2020 at 070 1 CSTPrevious preliminary verified result was No growth a t 48 hours on 12/13/2020 at 070 1 CSTPrevious preliminary verified result was No growth a t 72 hours on 12/14/2020 at 070 1 [employer]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 Blood No organisms No growth Previous Culture-Anaerobic isolated preliminar y (test code = 08556-6) verifi ed result was Culture In Progress on 12/11/2020 at 100 1 CSTPrevious preliminary verified result was No growth a t 24 hours on 12/12/2020 at 070 1 CSTPrevious preliminary verified result was No growth a t 48 hours on 12/13/2020 at 070 1 CSTPrevious preliminary verified result was No growth a t 72 hours on 12/14/2020 at 070 1 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 CHEST PULMONARY [id number] 23:34:55No pulmonary emboli. No interval change in [...] and extrahepatic biliary du ctal dilatation.[facility] 19:28:00 Test Item Value Reference Range Interpretation Comments POCT GLU (test code = 7462684536) 140 mg/dL 70-110 H Lab Interpretation (test code = Abnormal 86685-3) [facility] 15:26:00 Test Item Value Reference Range Interpretation Comments MAGNESIUM (test code = 7557940210) 2.2 mg/dL 1.7-2.4 Lab Interpretation (test code = Normal 80972-1) [facility]2020-12-15 15:15:00 Test Item Value Reference Range Interpretation Comments POCT GLU (test code = 5738352524) 181 mg/dL 70-110 H Lab Interpretation (test code = Abnormal 31579-9) [facility] (NA, K, CL, CO2, GLUCOSE, BUN, CREATININE, CA)2020-12-15 13:07:00 Test Item Value Reference Range Interpretation Comments NA (test code = 136 mmol/L 135-145 3459951972) K (test code = 3.6 mmol/L 3.5-5.0 1537815233) CL (test code = 96 mmol/L 98-108 L 1351935184) CO2 TOTAL (test code = 29 mmol/L 23-31 5386528837) AGAP (test code = 2-16 8819208558) BUN (test code = 12 mg/dL 7-23 8264357675) GLUCOSE (test code = 183 mg/dL 70-110 H 1655161081) CREATININE (test code = 0.70 mg/dL 0.60-1.25 4899196504) CALCIUM (test code = 9.2 mg/dL 8.6-10.6 0368959685) eGFR Calculation mL/min/1.73m2 (Non-) (test code = 1175199488) eGFR Calculation mL/min/1.73m2 () (test code = 9638125613) JAMES (test code = JAMES) Association of [...] tests). Lab Interpretation Abnormal (test code = 36998-6) [facility] WITH [id number] 12:32:00 Test Item Value Reference Range Interpretation Comments WBC (test code = See_Comment H [Automated 6690-2) message] The system which generated this result transmit ronan reference range : 4.20 - 10.70 10*3/?L. The reference range was not used to interpret this result as normal/abnormal . RBC (test code = See_Comment H [Automated 789-8) message] The system which generated this result [...] RDW-SD (test code = 44.4 fL 38.5-51.6 24516-1) RDW-CV (test code = 17.7 % 12.1-15.4 H 788-0) PLT (test code = See_Comment H [Automated 777-3) message] The system which generated this result transmit ronan reference range : 150 - 328 10*3/ ?L. The reference range was not u sed to interpret th is result as normal/abnormal . MPV (test code = 8.1 fL 9.8-13.0 L 48289-7) NRBC/100 WBC (test See_Comment [Automat ed code = 1157328756) message] The system which generated this result transmit ronan reference range : 0.0 - 10.0 /100 WBCs. The reference range was not used to interpret this result as normal/abnormal . NRBC x10^3 (test code <0.01 See_Comment [Auto mated = 8257760236) message] The system which generated this result transmit ronan reference range : 10*3/?L. The reference range was not used to interpret this result as normal/abnormal . GRAN MAT (NEUT) % 74.5 % (test code = 770-8) IMM GRAN % (test code 0.70 % = 6971515693) LYMPH % (test code = 17.4 % 736-9) MONO % (test code = 6.8 % 5905-5) EOS % (test code = 0.2 % 713-8) BASO % (test code = 0.4 % 706-2) GRAN MAT x10^3(ANC) 11.99 10*3/uL 1.99-6.95 H (test code = 4239811037) IMM GRAN x10^3 (test 0.11 10*3/uL 0.00-0.06 H code = 1432952290) LYMPH x10^3 (test code 2.80 10*3/uL 1.09-3.23 = 731-0) MONO x10^3 (test code 1.10 10*3/uL 0.36-1.02 H = 742-7) EOS x10^3 (test code = 0.03 10*3/uL 0.06-0.53 L 711-2) BASO x10^3 (test code 0.06 10*3/uL 0.01-0.09 = 704-7) Lab Interpretation Abnormal (test code = 18382-7) [facility] GLUCOSE (AUTOMATED)2020-12-15 04:16:00 Test Item Value Reference Range Interpretation Comments POCT GLU (test code = 5400769771) 200 mg/dL 70-110 H Lab Interpretation (test code = Abnormal 80612-7) [facility] (THIAMINE), WHOLE [id number] 00:30:00 Test Item Value Reference Range Interpretation Comments Vitamin B1, Whole 136 nmol/L 70-180 INTERPRETI VE INFORMATION: Blood (test code = Vitamin B 1, Whole Blood 40417-8) This assay júnior ures the concentration o f thiamine diphosphate (TD P), the primary active form of vitamin B1. Nick roximately 90 percent of v itamin B1 present in whol e blood is TDP. Thiamine a nd thiamine monoph osphate, which comprise the remaining 10 pe rcent, are not measured. T his test was developed a nd its performance characteristics determined by [facility]. I t has not been cleared or approved by the [place] Food and Drug Administration. This test was performed i n a CLIA certified labor atory and is intended for clinical purposes.Perfor med By: [facility] [place] [address] [id number] aboratory Director: Namrata Klein MD [facility] GLUCOSE (AUTOMATED)2020-12-14 23:35:00 Test Item Value Reference Range Interpretation Comments POCT GLU (test code = 9993273940) 151 mg/dL 70-110 H Lab Interpretation (test code = Abnormal 41721-4) [facility] GLUCOSE (AUTOMATED)2020-12-14 19:19:00 Test Item Value Reference Range Interpretation Comments POCT GLU (test code = 6302747060) 193 mg/dL 70-110 H Lab Interpretation (test code = Abnormal 50755-3) [facility] GLUCOSE (AUTOMATED)2020-12-14 15:22:00 Test Item Value Reference Range Interpretation Comments POCT GLU (test code = 7001000191) 221 mg/dL 70-110 H Lab Interpretation (test code = Abnormal 20343-0) [facility] GLUCOSE (AUTOMATED)2020-12-14 02:37:00 Test Item Value Reference Range Interpretation Comments POCT GLU (test code = 3741715505) 210 mg/dL 70-110 H Lab Interpretation (test code = Abnormal 62583-4) [facility] GLUCOSE (AUTOMATED)2020-12-13 23:33:00 Test Item Value Reference Range Interpretation Comments POCT GLU (test code = 4352581355) 182 mg/dL 70-110 H Lab Interpretation (test code = Abnormal 96282-7) [facility] GLUCOSE (AUTOMATED)2020-12-13 18:09:00 Test Item Value Reference Range Interpretation Comments POCT GLU (test code = 3362189819) 150 mg/dL 70-110 H Lab Interpretation (test code = Abnormal 33890-9) [facility] METABOLIC PANEL (NA, K, CL, CO2, GLUCOSE, BUN, CREATININE, CA)2020-12-13 16:27:00 Test Item Value Reference Range Interpretation Comments NA (test code = 136 mmol/L 135-145 1029645821) K (test code = 3.7 mmol/L 3.5-5.0 2808507768) CL (test code = 96 mmol/L 98-108 L 6568069806) CO2 TOTAL (test code = 29 mmol/L 23-31 6619203052) AGAP (test code = 2-16 5428858425) BUN (test code = 6 mg/dL 7-23 L 3664425783) GLUCOSE (test code = 212 mg/dL 70-110 H 9166481835) CREATININE (test code = 0.61 mg/dL 0.60-1.25 2753155627) CALCIUM (test code = 9.5 mg/dL 8.6-10.6 0176570687) eGFR Calculation mL/min/1.73m2 (Non-) (test code = 4562074360) eGFR Calculation mL/min/1.73m2 () (test code = 7925522419) JAMES (test code = JAMES) Association of [...] tests). Lab Interpretation Abnormal (test code = 87906-1) [facility] WITH [id number] 16:10:00 Test Item Value Reference Range Interpretation Comments WBC (test code = See_Comment H [Automated 3190-2) message] The sy stem which generated this result transmitted reference range : 4.20 - 10.70 10*3/?L. The reference range was not used to interpret this result as normal/abnormal . RBC (test code = See_Comment H [Automated 219-8) message] The sy stem which [...] RDW-SD (test code = 43.3 fL 38.5-51.6 28474-1) RDW-CV (test code = 16.2 % 12.1-15.4 H 788-0) PLT (test code = See_Comment H [Automated 777-3) message] The sy stem which generated this result transmitted reference range : 150 - 328 10*3/ ?L. The reference r torito was not used to interpret this result as normal/abnormal . MPV (test code = 8.2 fL 9.8-13.0 L 36761-3) NRBC/100 WBC (test See_Comment [Automat ed code = 7963414465) message] The system which generated this result transmitted reference range : 0.0 - 10.0 /100 WBCs. The refer ence range was not u sed to interpret th is result as normal/abnormal . NRBC x10^3 (test code <0.01 See_Comment [Auto mated = 5499225027) message] The s ystem which generated this result transmitted reference range : 10*3/?L. The reference range was not used to interpret this result as normal/abnormal . GRAN MAT (NEUT) % 86.2 % (test code = 770-8) IMM GRAN % (test code 0.70 % = 6160966792) LYMPH % (test code = 10.2 % 736-9) MONO % (test code = 2.5 % 5905-5) EOS % (test code = 0.1 % 713-8) BASO % (test code = 0.3 % 706-2) GRAN MAT x10^3(ANC) 9.61 10*3/uL 1.99-6.95 H (test code = 4294446691) IMM GRAN x10^3 (test 0.08 10*3/uL 0.00-0.06 H code = 3313332826) LYMPH x10^3 (test code 1.14 10*3/uL 1.09-3.23 = 731-0) MONO x10^3 (test code 0.28 10*3/uL 0.36-1.02 L = 742-7) EOS x10^3 (test code = <0.03 0.06-0.53 L 711-2) BASO x10^3 (test code 0.03 10*3/uL 0.01-0.09 = 704-7) Lab Interpretation Abnormal (test code = 59111-7) [facility]2020-[facility]13 14:16:00 Test Item Value Reference Range Interpretation Comments POCT GLU (test code = 2700551788) 236 mg/dL 70-110 H Lab Interpretation (test code = Abnormal 59841-2) [facility] COVID [id number] 04:58:00COVID DMT InterpretationInterpretation/Recommendations: Molecular NAAT Tests for [...] COVID-19 testing the patient has had at [facility], including molecular NAAT testing (more commonly known as PCR testing and Rapid ID Now testing) and antibody testing. It does not take into account any testing that a patient has had outside of the [facility] medical record. [facility] LABORATORY SERVICESCOVID Resu [id number]-[id number]-7 Rapid ID NOW (no units) ? ? Date ? Value ? 12/11/2020 ? Not Detected ? ? ? 11/16/2020 ? Not Detected ? ? ? 08/21/2020 ?Not Detected ? [facility]Un[facility] 2020-12-13 03:11:00 Test Item Value Reference Range Interpretation Comments POCT GLU (test code = 7705402787) 171 mg/dL 70-110 H Lab Interpretation (test code = Abnormal 06400-4) [facility] GLUCOSE (AUTOMATED)2020-12-13 00:00:00 Test Item Value Reference Range Interpretation Comments POCT GLU (test code = 5098070116) 118 mg/dL 70-110 H Lab Interpretation (test code = Abnormal 64323-0) [facility] GLUCOSE (AUTOMATED)2020-12-12 20:29:00 Test Item Value Reference Range Interpretation Comments POCT GLU (test code = 7483272126) 173 mg/dL 70-110 H Lab Interpretation (test code = Abnormal 06800-7) [facility] [id number] 19:56:17 1. ?Hepatic steatosis. However, limited evaluation [...] main portal veinwasevaluated with color Doppler imaging. Beater Worker Helper images were obtainedfor the record. COMPARISON: Ultrasound [...] normal where visualized. SPLEEN:No images were obtained. [facility], Radiant Results Inft User - 12/12/2020 1:57 PM CSTEXAM: US ABDOMEN LIMITEDHISTORY: 70 years-old male with RUQ ultrasound to assess for common bileduct dilation .TECHNIQUE: Limited abdominal ultrasound focused on the liver, biliarysystem, pancreas, and spleen was performed. The main portal vein wasevaluated with color Doppler imaging. Beater Worker Helper images were obtainedfor the record.COMPARISON: Ultrasound abdomen [...] this study and agree with the abovereport. [facility]2020-12-12 19:24:00 Test Item Value Reference Range Interpretation Comments POCT GLU (test code = 7368734698) 230 mg/dL 70-110 H Lab Interpretation (test code = Abnormal 98317-1) [facility] CHEST 1 [id number] 15:16:46 Low lung volumes with mild perihilar [...] have reviewed thisstudy and agree with theabove report.[facility]2020-12-12 14:34:00 Test Item Value Reference Range Interpretation Comments POCT GLU (test code = 2870070865) 225 mg/dL 70-110 H Lab Interpretation (test code = Abnormal 31441-8) [facility]INE [id number] 13:28:00 Test Item Value Reference Range Interpretation Comments URINE CULTURE (test < 10,000 CFU/mL mixed code = 630-4) aerobic organisms - suggests endogenous microbial contamination [facility] (NA, K, CL, CO2, GLUCOSE, BUN, CREATININE, CA)2020-12-12 10:05:00 Test Item Value Reference Range Interpretation Comments NA (test code = 136 mmol/L 135-145 9770489300) K (test code = 3.5 mmol/L 3.5-5.0 7545750856) CL (test code = 100 mmol/L 98-108 5671782829) CO2 TOTAL (test code = 31 mmol/L 23-31 3643298297) AGAP (test code = 2-16 4948653656) BUN (test code = 7 mg/dL 7-23 6876706430) GLUCOSE (test code = 259 mg/dL 70-110 H 4741501039) CREATININE (test code = 0.63 mg/dL 0.60-1.25 9397104038) CALCIUM (test code = 8.5 mg/dL 8.6-10.6 L 9768612260) eGFR Calculation mL/min/1.73m2 (Non-) (test code = 6915193396) eGFR Calculation mL/min/1.73m2 () (test code = 2051070514) JAMES (test code = JAMES) Association of [...] tests). Lab Interpretation Abnormal (test code = 63682-3) [facility]AllenMagnesium [id number] 10:05:00 Test Item Value Reference Range Interpretation Comments MAGNESIUM (test code = 5936764994) 1.9 mg/dL 1.7-2.4 Lab Interpretation (test code = Normal 17212-6) [facility] with [id number] 09:48:00 Test Item Value Reference Range Interpretation Comments WBC (test code = See_Comment [Automated 5296-2) message] The sy stem which generated this result transmitted reference range : 4.20 - 10.70 10*3/?L. The reference range was not used to interpret this result as normal/abnormal . RBC (test code = See_Comment [Automated 521-8) message] The sy stem which generated this [...] RDW-SD (test code = 46.0 fL 38.5-51.6 54464-7) RDW-CV (test code = 16.1 % 12.1-15.4 H 788-0) PLT (test code = See_Comment H [Automated 777-3) message] The sy stem which generated this result transmitted reference range : 150 - 328 10*3/ ?L. The reference r torito was not used to interpret this result as normal/abnormal . MPV (test code = 8.6 fL 9.8-13.0 L 87810-6) NRBC/100 WBC (test See_Comment [Automat ed code = 4396735132) message] The system which generated this result transmitted reference range : 0.0 - 10.0 /100 WBCs. The refer ence range was not u sed to interpret th is result as normal/abnormal . NRBC x10^3 (test code <0.01 See_Comment [Auto mated = 5324223897) message] The s ystem which generated this result transmitted reference range : 10*3/?L. The reference range was not used to interpret this result as normal/abnormal . GRAN MAT (NEUT) % 70.2 % (test code = 770-8) IMM GRAN % (test code 0.30 % = 1527652760) LYMPH % (test code = 18.8 % 736-9) MONO % (test code = 5.0 % 5905-5) EOS % (test code = 5.2 % 713-8) BASO % (test code = 0.5 % 706-2) GRAN MAT x10^3(ANC) 6.05 10*3/uL 1.99-6.95 (test code = 1408112888) IMM GRAN x10^3 (test 0.03 10*3/uL 0.00-0.06 code = 3700549193) LYMPH x10^3 (test code 1.62 10*3/uL 1.09-3.23 = 731-0) MONO x10^3 (test code 0.43 10*3/uL 0.36-1.02 = 742-7) EOS x10^3 (test code = 0.45 10*3/uL 0.06-0.53 711-2) BASO x10^3 (test code 0.04 10*3/uL 0.01-0.09 = 704-7) Lab Interpretation Abnormal (test code = 25986-0) [facility] GLUCOSE (AUTOMATED)2020-12-12 03:42:00 Test Item Value Reference Range Interpretation Comments POCT GLU (test code = 196 mg/dL 70-110 H Notifi ed Provider 6597833989) Lab Interpretation (test Abnormal code = 82908-1) [facility] 02:24:00 Test Item Value Reference Range Interpretation Comments FOLATE SER (test code = 4415056063) 5.8 ng/mL 3.0-20.0 Lab Interpretation (test code = Normal 23083-9) [facility] [facility] McAllenVITAMIN B12, [id number] 00:55:00 Test Item Value Reference Range Interpretation Comments VIT B12 (test code = 844 pg/mL 240-930 9819178782) JAMES (test code = JAMES) Biotin has been reported to cause a positive bias, interpret results relative to patient's use of biotin. Lab Interpretation (test Normal code = 33543-4) [facility] GLUCOSE (AUTOMATED)2020-12-12 00:14:00 Test Item Value Reference Range Interpretation Comments POCT GLU (test code = 8377136334) 164 mg/dL 70-110 H Lab Interpretation (test code = Abnormal 26252-6) [facility]AllenCREATINE [id number] 23:42:00 Test Item Value Reference Range Interpretation Comments CK (test code = 7632937482) <20 33-194 L Lab Interpretation (test code = Abnormal 27435-8) [facility] McAllenTHYROID STIMULATING [id number] 23:17:00 Test Item Value Reference Range Interpretation Comments TSH (test code = See_Comment Biotin has been [id number]) reported to cau se a negative bias, interpret resul ts relative to pat ient's use of biotin. [Automated mess age] The system whic h generated this result transmitted ref erence range: 0.45 - 4 .70 mIU/L. The refe rence range was not u sed to interpret this result as normal/abnor mal. Lab Interpretation (test Normal code = 53216-7) [facility] McAllenXR HIPS 3 VW [id number] 21:41:53No appreciable fracture lines. RL: 6200 ICAL [...] No osseous erosions.IMPRESSIONNo appreciable fracture lines.RL: 6200 [facility] 20:00:00 Test Item Value Reference Range Interpretation Comments Procalcitonin (test 0.13 ng/mL <0.07 H code = 2882961658) JAMES (test code = JAMES) INTERPRETATION OF [...] lung abscess/empyema. For further information please refer to:[email or web address] Lab Interpretation Abnormal (test code = 11930-9) [facility] GLU[facility]SE (AUTOMATED)2020-12-11 19:07:00 Test Item Value Reference Range Interpretation Comments POCT GLU (test code = 4679733439) 274 mg/dL 70-110 H Lab Interpretation (test code = Abnormal 86945-3) [facility]AllenMAGNESIUM2021-03-01 18:31:00 Test Item Value Reference Range Interpretation Comments MAGNESIUM (test code = 9247589810) 1.9 mg/dL 1.7-2.4 Lab Interpretation (test code = Normal 68361-8) [facility] McAllenFERRITIN [id number] 18:31:00 Test Item Value Reference Range Interpretation Comments FERRITIN (test code = 178.0 ng/mL 18.0-464.0 4938295745) JAMES (test code = JAMES) Biotin has been reported to cause a negative bias, interpret results relative to patient's use of biotin. Lab Interpretation (test Normal code = 72668-7) [facility] McAllenCT HEAD WO [id number] 14:36:47 No acute intracranial abnormality. Dilated ventricles [...] reviewed this study and agree with the abovereport.[facility]AllenURINALYSIS2021-03-01 14:28:00 Test Item Value Reference Range Interpretation Comments APPEARANCE (test code = Clear Clear 4694336291) COLOR (test code = Yellow Yellow 3112197810) PH (test code = 4.8-8.0 6841726224) SP GRAVITY (test code = 1.003-1.030 1451908079) GLU U QUAL (test code = 500 mg/dL Normal A 8439574826) BLOOD (test code = Negative Negative 1711716425) KETONES (test code = 5 mg/dL Negative A 5262457304) PROTEIN (test code = Negative Negative 2887-8) UROBILIN (test code = Normal Normal 4624946149) BILIRUBIN (test code = Negative Negative 8401022363) NITRITE (test code = Negative Negative 2708027111) LEUK RYAN (test code = Negative Negative 9500151054) RBC/HPF (test code = See_Comment [Autom ated message] 6269376241) The system [employer] generated this result transmit ronan reference range : 0 - 3 HPF. The refe rence range was not u sed to interpret th is result as normal/abnormal . WBC/HPF (test code = See_Comment [Autom ated message] 0450687633) The system [employer] generated this result transmit ronan reference range : 0 - 5 HPF. The refe rence range was not u sed to interpret th is result as normal/abnormal . BACTERIA (test code = Negative Negative 9876783386) MUCOUS (test code = Slight Negative LPF A 0582734417) SQ EPITH (test code = HPF 3487111389) Lab Interpretation (test Abnormal code = 36880-7) [facility]AllenCOVID[facility] (ID NOW RAPID TESTING)2020-12-11 13:10:00 Test Item Value Reference Range Interpretation Comments SARS-CoV-2 Rapid ID NOW Not Detected Not Detected (test code = 56858-2) JAMES (test code = JAMES) ID NOW COVID-19 Assay is an isothermal nucleic acid amplification test intended for the qualitative detection of nucleic acid from SARS-CoV-2 viral RNA in nasopharyngeal (CASE BRIEFER) specimens. It is used under Emergency Use [...] indicated. Lab Interpretation Normal (test code = 07675-6) [facility] McAllenCOMP. METABOLIC PANEL (72180)2020-12-11 12:29:00 Test Item Value Reference Range Interpretation Comments NA (test code = 136 mmol/L 135-145 6002388181) K (test code = 3.5 mmol/L 3.5-5.0 5245010366) CL (test code = 95 mmol/L 98-108 L 8890065543) CO2 TOTAL (test code = 35 mmol/L 23-31 H 9555848193) AGAP (test code = 2-16 8234846909) BUN (test code = 9 mg/dL 7-23 3485992632) GLUCOSE (test code = 329 mg/dL 70-110 H 2166831960) CREATININE (test code = 0.72 mg/dL 0.60-1.25 0832452181) TOTAL BILI (test code = 0.6 mg/dL 0.1-1.7 4117793701) CALCIUM (test code = 9.0 mg/dL 8.6-10.6 7815662319) T PROTEIN (test code = 6.8 g/dL 6.3-8.2 2560809378) ALBUMIN (test code = 3.8 g/dL 3.5-5.0 8280891665) ALK PHOS (test code = 288 U/L 34-122 H 4554869126) ALTv (test code = 46 U/L -50 1741-6) AST(SGOT) (test code = 38 U/L 13-40 6172254348) eGFR Calculation mL/min/1.73m2 (Non-) (test code = 6544857105) eGFR Calculation mL/min/1.73m2 () (test code = 6801831154) JAMES (test code = JAMES) Association of [...] tests). Lab Interpretation Abnormal (test code = 32445-4) [facility] McAllenLactic Acid Whole [id number] 12:23:00 Test Item Value Reference Range Interpretation Comments LACTIC ACID (test code = 2.09 mmol/L 0.50-2.20 2513790168) Lab Interpretation (test code = Normal 44012-6) [facility]AllenCB WITH [id number] 12:17:00 Test Item Value Reference Range Interpretation [...] RDW-SD (test code = 44.9 fL 38.5-51.6 24471-8) RDW-CV (test code = 15.9 % 12.1-15.4 H 788-0) PLT (test code = See_Comment H [Automated 777-3) message] The sy stem which generated this result transmitted reference range : 150 - 328 10*3/ ?L. The reference r torito was not used to interpret this result as normal/abnormal . MPV (test code = 8.3 fL 9.8-13.0 L 77618-6) NRBC/100 WBC (test See_Comment [Automat ed code = 3190082615) message] The system which generated this result transmitted reference range : 0.0 - 10.0 /100 WBCs. The refer ence range was not u sed to interpret th is result as normal/abnormal . NRBC x10^3 (test code <0.01 See_Comment [Auto mated = 7868126110) message] The s ystem which generated this result transmitted reference range : 10*3/?L. The reference range was not used to interpret this result as normal/abnormal . GRAN MAT (NEUT) % 77.9 % (test code = 770-8) IMM GRAN % (test code 0.50 % = 9213288519) LYMPH % (test code = 12.2 % 736-9) MONO % (test code = 5.2 % 5905-5) EOS % (test code = 3.7 % 713-8) BASO % (test code = 0.5 % 706-2) GRAN MAT x10^3(ANC) 9.57 10*3/uL 1.99-6.95 H (test code = 0839240697) IMM GRAN x10^3 (test 0.06 10*3/uL 0.00-0.06 code = 6711402292) LYMPH x10^3 (test code 1.50 10*3/uL 1.09-3.23 = 731-0) MONO x10^3 (test code 0.64 10*3/uL 0.36-1.02 = 742-7) EOS x10^3 (test code = 0.46 10*3/uL 0.06-0.53 711-2) BASO x10^3 (test code 0.06 10*3/uL 0.01-0.09 = 704-7) Lab Interpretation Abnormal (test code = 34600-9) [facility]AllenLAB ONLY COVID [id number] 18:43:00COVID DMT InterpretationInterpretation/Recommendations: Molecular NAAT Test Results [...] a nasopharyngeal sample, there is approximately a cmk-zp-tugyj chance that the patient was infected and [...] based upon aggregate data pooled from the [facility] medical record including both current and prior COVID-19 related testing results for the following tests offered at our institution:A. Tests for the Identification of SARS-CoV-2 RNA:SARS-CoV-2 PCR assays including [place] Aptima, [place] Fusion, Barrett RealTime, and [employer] Xpert Xpress. SARS-CoV-2 Rapid ID NOW by the ID NOW assay. ? B. Tests for the Identification of SARS-CoV-2 Antibodies: Chemiluminescent immunoassays including Access SARS-CoV-2 IgM (DXI 600), [employer] Nyat-GFPL-DjK-2 IgG (Vitros 5600 and Vitros 3600), and Barrett SARS-CoV-2 IgG (CLINICAL DIETICIAN I System). These interpretation comments assume that only the above testing was utilized and that the approved acceptable specimen type(s) were used for a given test. These interpretations are autopopulated into [facility] based on computerized algorithms matching an interpretation code number to the patient's set of test results. While a clinical pathologist evaluates the combinations for clinical accuracy, clinical correlation is recommended as it may not take into account very remote prior testing. Furthermore, it does not consider testing a patient may have had outside of the [facility] system. Additionally, it should be noted that the computerized algorithm treats the results for PCR testing and Rapid ID NOW testing (also PCR) synonymously, and thus, refers to both testing methodologies as PCR tests. Given that the sensitivity of [facility]'s Rapid ID NOW testingplatform [...] panel may be beneficial in this setting. [facility] LABORATORY SERVICESCOVID NjkrfabPFSQ-CcO-6 Rapid ID NOW (no units) ? ? Date ? Value ? 08/21/2020 ? Not Detected ? [facility] SERVICESUnK[facility]2020-08-23 18:25:00 Test Item Value Reference Range Interpretation Comments POCT GLU (test code = 6283814441) 297 mg/dL 70-110 H Lab Interpretation (test code = Abnormal 59948-6) [facility] GLUCOSE (AUTOMATED)2020-08-23 14:25:00 Test Item Value Reference Range Interpretation Comments POCT GLU (test code = 1018968853) 181 mg/dL 70-110 H Lab Interpretation (test code = Abnormal 73428-1) [facility] McAllenBasi Metabolic Panel (NA, K, CL, CO2, GLUCOSE, BUN, CREATININE, CA)2020-08-23 11:45:00 Test Item Value Reference Range Interpretation Comments NA (test code = 132 mmol/L 135-145 L 3978998219) K (test code = 4.0 mmol/L 3.5-5 4263860360) CL (test code = 96 mmol/L 98-108 L 7426529300) CO2 TOTAL (test code = 33 mmol/L 23-31 H 8973898717) AGAP (test code = 2-16 6077223349) BUN (test code = 9 mg/dL 7-23 2166807920) GLUCOSE (test code = 176 mg/dL 70-110 H 1444986340) CREATININE (test code = 0.66 mg/dL 0.6-1.25 9182870798) CALCIUM (test code = 8.5 mg/dL 8.6-10.6 L 2057672487) eGFR Calculation mL/min/1.73m2 (Non-) (test code = 2923943170) eGFR Calculation mL/min/1.73m2 () (test code = 5986595225) JAMES (test code = JAMES) Association of [...] tests). Lab Interpretation Abnormal (test code = 91521-5) [facility] McAllenMagnesium [id number] 11:45:00 Test Item Value Reference Range Interpretation Comments MAGNESIUM (test code = 6671174839) 2.0 mg/dL 1.7-2.4 Lab Interpretation (test code = Normal 25068-0) [facility] with [id number] 11:38:00 Test Item Value Reference Range Interpretation [...] RDW-SD (test code = 41.8 fL 38.5-51.6 45230-0) RDW-CV (test code = 14.3 % 12.1-15.4 788-0) PLT (test code = See_Comment H [Automated 777-3) message] The sy stem which generated this result transmitted reference range : 150 - 328 10*3/ ?L. The reference r torito was not used to interpret this result as normal/abnormal . MPV (test code = 8.0 fL 9.8-13 L 77138-3) NRBC/100 WBC (test See_Comment [Automat ed code = 4525316850) message] The system which generated this result transmitted reference range : 0.0 - 10.0 /100 WBCs. The refer ence range was not u sed to interpret th is result as normal/abnormal . NRBC x10^3 (test code <0.01 See_Comment [Auto mated = 6559450850) message] The s ystem which generated this result transmitted reference range : 10*3/?L. The reference range was not used to interpret this result as normal/abnormal . GRAN MAT (NEUT) % 61.5 % (test code = 770-8) IMM GRAN % (test code 2.00 % = 1802914567) LYMPH % (test code = 25.5 % 736-9) MONO % (test code = 6.3 % 5905-5) EOS % (test code = 3.7 % 713-8) BASO % (test code = 1.0 % 706-2) GRAN MAT x10^3(ANC) 5.29 10*3/uL 1.99-6.95 (test code = 3945955239) IMM GRAN x10^3 (test 0.17 10*3/uL 0-0.06 H code = 6875797588) LYMPH x10^3 (test code 2.19 10*3/uL 1.09-3.23 = 731-0) MONO x10^3 (test code 0.54 10*3/uL 0.36-1.02 = 742-7) EOS x10^3 (test code = 0.32 10*3/uL 0.06-0.53 711-2) BASO x10^3 (test code 0.09 10*3/uL 0.01-0.09 = 704-7) Lab Interpretation Abnormal (test code = 21876-3) [facility] GLUCOSE (AUTOMATED)2020-08-23 10:22:00 Test Item Value Reference Range Interpretation Comments POCT GLU (test code = 6990965902) 164 mg/dL 70-110 H Lab Interpretation (test code = Abnormal 37955-6) [facility] GLUCOSE (AUTOMATED)2020-08-23 05:56:00 Test Item Value Reference Range Interpretation Comments POCT GLU (test code = 9693884434) 242 mg/dL 70-110 H Lab Interpretation (test code = Abnormal 91774-4) [facility] GLUCOSE (AUTOMATED)2020-08-23 03:02:00 Test Item Value Reference Range Interpretation Comments POCT GLU (test code = 2961919266) 210 mg/dL 70-110 H Lab Interpretation (test code = Abnormal 92707-7) [facility] GLUCOSE (AUTOMATED)2020-08-22 23:40:00 Test Item Value Reference Range Interpretation Comments POCT GLU (test code = 3351242025) 267 mg/dL 70-110 H Lab Interpretation (test code = Abnormal 87210-2) [facility] GLUCOSE (AUTOMATED)2020-08-22 19:08:00 Test Item Value Reference Range Interpretation Comments POCT GLU (test code = 4115948280) 191 mg/dL 70-110 H Lab Interpretation (test code = Abnormal 99426-9) [facility] GLUCOSE (AUTOMATED)2020-08-22 13:50:00 Test Item Value Reference Range Interpretation Comments POCT GLU (test code = 6748572937) 174 mg/dL 70-110 H Lab Interpretation (test code = Abnormal 79096-0) [facility]AllenURINE [id number] 12:59:00 Test Item Value Reference Range Interpretation Comments URINE CULTURE (test No aerobic growth (< code = 630-4) 1000 CFU/mL) [facility] with Cxeexvtffczv6095-18-34 11:28:00 Test Item Value Reference Range Interpretation Comments WBC (test code = See_Comment [Automated 6690-2) message] The sy stem which generated this result transmitted reference range : 4.20 - 10.70 10*3/?L. The reference range was not used to interpret this result as normal/abnormal . RBC (test code = See_Comment L [Automated 149-8) message] The sy stem which generated this [...] RDW-SD (test code = 42.5 fL 38.5-51.6 42631-4) RDW-CV (test code = 14.5 % 12.1-15.4 788-0) PLT (test code = See_Comment H [Automated 777-3) message] The sy stem which generated this result transmitted reference range : 150 - 328 10*3/ ?L. The reference r torito was not used to interpret this result as normal/abnormal . MPV (test code = 8.0 fL 9.8-13 L 88575-7) NRBC/100 WBC (test See_Comment [Automat ed code = 2760286107) message] The system which generated this result transmitted reference range : 0.0 - 10.0 /100 WBCs. The refer ence range was not u sed to interpret th is result as normal/abnormal . NRBC x10^3 (test code <0.01 See_Comment [Auto mated = 4044453263) message] The s ystem which generated this result transmitted reference range : 10*3/?L. The reference range was not used to interpret this result as normal/abnormal . GRAN MAT (NEUT) % 69.1 % (test code = 770-8) IMM GRAN % (test code 2.20 % = 0467325105) LYMPH % (test code = 20.9 % 736-9) MONO % (test code = 5.8 % 5905-5) EOS % (test code = 1.0 % 713-8) BASO % (test code = 1.0 % 706-2) GRAN MAT x10^3(ANC) 6.51 10*3/uL 1.99-6.95 (test code = 0184165411) IMM GRAN x10^3 (test 0.21 10*3/uL 0-0.06 H code = 8849870227) LYMPH x10^3 (test code 1.97 10*3/uL 1.09-3.23 = 731-0) MONO x10^3 (test code 0.55 10*3/uL 0.36-1.02 = 742-7) EOS x10^3 (test code = 0.09 10*3/uL 0.06-0.53 711-2) BASO x10^3 (test code 0.09 10*3/uL 0.01-0.09 = 704-7) BASO STIPPLING (test Present A code = 703-9) BANDS (test code = Increased A 3541065464) TOXIC CHANGES (test Present A code = 803-7) Lab Interpretation Abnormal (test code = 10878-3) [facility] Metabolic Panel (NA, K, CL, CO2, GLUCOSE, BUN, CREATININE, CA)2020-08-22 11:12:00 Test Item Value Reference Range Interpretation Comments NA (test code = 135 mmol/L 135-145 1595179596) K (test code = 3.6 mmol/L 3.5-5 7182348092) CL (test code = 99 mmol/L 98-108 9646866390) CO2 TOTAL (test code = 31 mmol/L 23-31 1359755972) AGAP (test code = 2-16 5180836072) BUN (test code = 9 mg/dL 7-23 1537065622) GLUCOSE (test code = 198 mg/dL 70-110 H 6620294066) CREATININE (test code = 0.72 mg/dL 0.6-1.25 1361884373) CALCIUM (test code = 8.3 mg/dL 8.6-10.6 L 4330945363) eGFR Calculation mL/min/1.73m2 (Non-) (test code = 4010715268) eGFR Calculation mL/min/1.73m2 () (test code = 3041748861) JAMES (test code = JAMES) Association of [...] tests). Lab Interpretation Abnormal (test code = 01536-3) [facility]AllenMagnesium [id number] 11:12:00 Test Item Value Reference Range Interpretation Comments MAGNESIUM (test code = 0341011308) 2.0 mg/dL 1.7-2.4 Lab Interpretation (test code = Normal 94177-3) [facility] McAllenLipid Panel (Total Cholesterol, Triglycerides, HDL) - [id number] 11:12:00 Test Item Value Reference Range Interpretation Comments CHOL (test code = 155 mg/dL 120-200 1697886537) HDL (test code = 42 mg/dL >40 7388954976) HDLC RATIO (test code = See_Comment [Au tomated message] 6629422048) The system [employer] generated this result transmit ronan reference range : <=5.0. The refe rence range was not u sed to interpret th is result as normal/abnormal . TRIG (test code = 186 mg/dL 30-170 H 4746152131) LDL CHOL (test code = 76 mg/dL See_Comment [Auto mated message] 98287-1) The system [employer] generated this result transmit ronan reference range : <=160. The refe rence range was not u sed to interpret th is result as normal/abnormal . VLDL (test code = 37 mg/dL 5-60 1655860463) Lab Interpretation (test Abnormal code = 72815-2) [facility] McAllenHEPATIC FUNCTION PANEL (36789) (ALB,T.PRO,BILI T,BU/BC,ALT,AST,ALK PHOS)2020-08-22 11:12:00 Test Item Value Reference Range Interpretation Comments TOTAL BILI (test code = 9693732709) 0.6 mg/dL 0.1-1.1 BILI UNCON (test code = 7466790661) 0.2 mg/dL 0.1-1.1 BILI CONJ (test code = 5070868179) 0.0 mg/dL 0-0.3 T PROTEIN (test code = 0935166863) 6.0 g/dL 6.3-8.2 L ALBUMIN (test code = 6087652925) 2.8 g/dL 3.5-5 L ALK PHOS (test code = 0688072013) 222 U/L 34-122 H ALTv (test code = 1742-6) 27 U/L 5-50 AST(SGOT) (test code = 7212793398) 30 U/L 13-40 Lab Interpretation (test code = Abnormal 77432-8) [facility] GLUCOSE (AUTOMATED)2020-08-22 10:11:00 Test Item Value Reference Range Interpretation Comments POCT GLU (test code = 4486747966) 196 mg/dL 70-110 H Lab Interpretation (test code = Abnormal 25464-0) [facility] GLUCOSE (AUTOMATED)2020-08-22 07:15:00 Test Item Value Reference Range Interpretation Comments POCT GLU (test code = 5976829219) 183 mg/dL 70-110 H Lab Interpretation (test code = Abnormal 17253-6) [facility] GLUCOSE (AUTOMATED)2020-08-22 02:30:00 Test Item Value Reference Range Interpretation Comments POCT GLU (test code = 0882202744) 295 mg/dL 70-110 H Lab Interpretation (test code = Abnormal 70263-8) [facility] GLUCOSE (AUTOMATED)2020-08-21 23:46:00 Test Item Value Reference Range Interpretation Comments POCT GLU (test code = 7804257863) 258 mg/dL 70-110 H Lab Interpretation (test code = Abnormal 63132-5) [facility] McAllenC-REACTIVE [id number] 18:50:00 Test Item Value Reference Range Interpretation Comments CRP (test code = 3010263721) 15.5 mg/dL <0.8 H Lab Interpretation (test code = Abnormal 31499-5) [facility] GLU[facility]SE (AUTOMATED)2020-08-21 18:21:00 Test Item Value Reference Range Interpretation Comments POCT GLU (test code = 0002309442) 297 mg/dL 70-110 H Lab Interpretation (test code = Abnormal 25714-6) [facility] McAllenETHANOL2020-11-09 16:24:00 Test Item Value Reference Range Interpretation Comments ALCOHOL (test code = <10 mg/dL 5999477199) JAMES (test code = Toxic Greater than or JAMES) equal to 80 mg/dL. NOTE: Whole blood values are approximately 10% to 15% lower than serum and plasma. [facility] McAllenGAL/CLC ONLY - URINE DRUG (IMMUNOASSAY) - 4 ER [id number] 15:36:00 Test Item Value Reference Range Interpretation Comments AMPHET (test code = Negative Negative 4782037713) Cocaine Metabolite (test Negative Negative code = 4262778080) OPIATES (test code = Presumptive Positive Negative A 2061689453) THC (test code = Negative Negative 9926946753) JAMES (test code = JAMES) Urine Drug Cutoff Ranges Amphetamine: ? 1,000 ng/mLCocaine: ? 150 ng/mLOpiates: ? 300 ng/mLCannabinoids: ?50 ng/mL The results are to be used only for medical (i.e., treatment) purposes. Unconfirmed screening results must not be used for non-medical purposes (e.g., employment testing, legal testing). Lab Interpretation (test Abnormal code = 98098-3) [facility] ONLY - SYPHILIS [id number]/[id number] 15:04:00 Test Item Value Reference Range Interpretation Comments Syphilis IgG/IgM (test Non-reactive Non-reactive code = 57402-4) JAMES (test code = JAMES) Non-reactive - No serologic evidence of T. pallidum infection. Cannot exclude incubating or early syphilis. Submit a second specimen in 2-4 weeks if syphilis is clinically suspected. Equivocal - Further testing to follow. Reactive - Further testing to follow. Lab Interpretation (test Normal code = 91365-8) [facility] McAllenUrinalysis2020-11-09 14:52:00 Test Item Value Reference Range Interpretation Comments APPEARANCE (test code = Clear Clear 8333331136) COLOR (test code = Yellow Yellow 8907596566) PH (test code = 4.8-8.0 5982403670) SP GRAVITY (test code = 1.003-1.030 4784376459) GLU U QUAL (test code = 500 mg/dL Normal A 5728716081) BLOOD (test code = Negative Negative 8922987550) KETONES (test code = 20 mg/dL Negative A 4381154861) PROTEIN (test code = Negative Negative 2887-8) UROBILIN (test code = Normal Normal 9319793806) BILIRUBIN (test code = Negative Negative 1820848480) NITRITE (test code = Negative Negative 2752306443) LEUK RYAN (test code = Negative Negative 0990829240) RBC/HPF (test code = <1 See_Comment [Autom ated message] 7440877770) The system [employer] generated this result transmit ronan reference range : 0 - 3 HPF. The refe rence range was not u sed to interpret th is result as normal/abnormal . WBC/HPF (test code = See_Comment [Autom ated message] 5606981761) The system [employer] generated this result transmit ronan reference range : 0 - 5 HPF. The refe rence range was not u sed to interpret th is result as normal/abnormal . BACTERIA (test code = Negative Negative 8406244199) MUCOUS (test code = Slight Negative LPF A 9665594432) Lab Interpretation (test Abnormal code = 24039-2) [facility] McAllenACTIVATED PARTIAL THRMPLAS [id number] 13:45:00 Test Item Value Reference Range Interpretation Comments APTT Patient (test code = See_Comment [ Automated message] 3173-2) The system [employer] generated this result transmitted ref erence range: 26 - 36 Seconds. The re ference range was not u sed to interpret this result as normal/abnor mal. Lab Interpretation (test Normal code = 20512-0) [facility] [place]2020-08-21 13:45:00 Test Item Value Reference Range Interpretation Comments POCT GLU (test code = 1348044763) 246 mg/dL 70-110 H Lab Interpretation (test code = Abnormal 13058-4) [facility]2 AG-AB WITH [id number] 12:32:00 Test Item Value Reference Range Interpretation Comments HIV Negative Negative Semi-quantitative (test code = 39164-8) JAMES (test code = Non-reactive for HIV-1 JAMES) antigen and HIV-1/HIV-2 antibodies. ?No laboratory evidence of HIV infection. ?Repeat in 2-4 weeks if acute HIV infection is suspected. [facility] WITH [id number] 12:18:00 Test Item Value Reference Range Interpretation Comments WBC (test code = See_Comment [Automated 7090-2) message] The sy stem which generated this [...] RDW-SD (test code = 44.4 fL 38.5-51.6 78322-5) RDW-CV (test code = 14.5 % 12.1-15.4 788-0) PLT (test code = See_Comment H [Automated 777-3) message] The sy stem which generated this result transmitted reference range : 150 - 328 10*3/ ?L. The reference r torito was not used to interpret this result as normal/abnormal . MPV (test code = 8.5 fL 9.8-13 L 17741-1) NRBC/100 WBC (test See_Comment [Automat ed code = 4445171774) message] The system which generated this result transmitted reference range : 0.0 - 10.0 /100 WBCs. The refer ence range was not u sed to interpret th is result as normal/abnormal . NRBC x10^3 (test code <0.01 See_Comment [Auto mated = 8190607768) message] The s ystem which generated this result transmitted reference range : 10*3/?L. The reference range was not used to interpret this result as normal/abnormal . GRAN MAT (NEUT) % 90.4 % (test code = 770-8) IMM GRAN % (test code 1.30 % = 4099055953) LYMPH % (test code = 7.1 % 736-9) MONO % (test code = 0.5 % 5905-5) EOS % (test code = 0.1 % 713-8) BASO % (test code = 0.6 % 706-2) GRAN MAT x10^3(ANC) 7.74 10*3/uL 1.99-6.95 H (test code = 9115380326) IMM GRAN x10^3 (test 0.11 10*3/uL 0-0.06 H code = 3356760501) LYMPH x10^3 (test code 0.61 10*3/uL 1.09-3.23 L = 731-0) MONO x10^3 (test code 0.04 10*3/uL 0.36-1.02 L = 742-7) EOS x10^3 (test code = <0.03 0.06-0.53 L 711-2) BASO x10^3 (test code 0.05 10*3/uL 0.01-0.09 = 704-7) POLYCHROMASIA (test 2+ See_Comment [Automa ronan code = 84238-0) message] The system which generated this result transmitted reference range : 2+. The referen ce range was not u sed to interpret th is result as normal/abnormal . BANDS (test code = Increased A 2426782796) Lab Interpretation Abnormal (test code = 06192-1) [facility] [place]PROCALCITONIN2020-11-09 11:48:00 Test Item Value Reference Range Interpretation Comments Procalcitonin (test 0.36 ng/mL <0.07 H code = 3627362031) JAMES (test code = JAMES) INTERPRETATION OF [...] lung abscess/empyema. For further information please refer to:[email or web address] Lab Interpretation Abnormal (test code = 42129-6) [facility] McAllenLACTATE [id number] 10:53:00 Test Item Value Reference Range Interpretation Comments LDH (test code = 3279792982) 351 U/L 300-600 Lab Interpretation (test code = Normal 98403-2) [facility] McAllenSEDIMENTATION [id number] 10:07:00 Test Item Value Reference Range Interpretation Comments ESR (test code = See_Comment H [Automated message] 3357810064) The system [employer] generated this result transmitted ref erence range: 0 - 10 m m/HR. The reference r torito was not used to interpret this result as normal/abnor mal. Lab Interpretation (test Abnormal code = 71850-0) [facility] [place]AllenPONE GLUCOSE (AUTOMATED)2020-08-21 09:45:00 Test Item Value Reference Range Interpretation Comments POCT GLU (test code = 0567455635) 287 mg/dL 70-110 H Lab Interpretation (test code = Abnormal 41935-9) [facility] [place]AllenGlycosylated Hemoglobin (A1C)2020-08-21 09:29:00 Test Item Value Reference Range Interpretation Comments HGB A1C (test code = 4548-4) 9.8 % 4-6 H Lab Interpretation (test code = Abnormal 12780-1) [facility] [place]COVID-19 (ID NOW RAPID TESTING)2020-08-21 09:13:00 Test Item Value Reference Range Interpretation Comments SARS-CoV-2 Rapid ID NOW Not Detected Not Detected (test code = 41694-2) JAMES (test code = JAMES) ID NOW COVID-19 Assay is an isothermal nucleic acid amplification test intended for the qualitative detection of nucleic acid from SARS-CoV-2 viral RNA in nasopharyngeal (CASE BRIEFER) specimens. It is used under Emergency Use [...] indicated. Lab Interpretation Normal (test code = 82623-3) [facility] McAllenProthrombin Time / [id number] 08:59:00 Test Item Value Reference Range Interpretation Comments PROTIME PATIENT (test See_Comment H [Auto mated message] code = 5964-2) The system [employer] generated this result transmitted ref erence range: 10.1 - 1 2.6 Seconds. The reference range was not used to int erpret this result as normal/abnormal . INR (test code = 6301-6) Nor mal INR <1.1; Warfarin Therap eutic range 2.0 to 3. 0 or 2.5 to 3.5, dep ending upon the indica tions. Lab Interpretation (test Abnormal code = 31099-4) [facility] McAllenaPTT2020-11-09 08:59:00 Test Item Value Reference Range Interpretation Comments APTT Patient (test code = See_Comment [ Automated message] 3173-2) The system [employer] generated this result transmitted ref erence range: 26 - 36 Seconds. The re ference range was not u sed to interpret this result as normal/abnor mal. Lab Interpretation (test Normal code = 06722-4) [facility] [place]AllenBASI METABOLIC PANEL (NA, K, CL, CO2, GLUCOSE, BUN, CREATININE, CA)2020-08-21 08:52:00 Test Item Value Reference Range Interpretation Comments NA (test code = 136 mmol/L 135-145 6220739388) K (test code = 4.3 mmol/L 3.5-5 0214117779) CL (test code = 104 mmol/L 98-108 4064760100) CO2 TOTAL (test code = 24 mmol/L 23-31 2673138067) AGAP (test code = 2-16 6752813931) BUN (test code = 8 mg/dL 7-23 7957038605) GLUCOSE (test code = 308 mg/dL 70-110 H 8395860265) CREATININE (test code = 0.72 mg/dL 0.6-1.25 1511377677) CALCIUM (test code = 7.8 mg/dL 8.6-10.6 L 3935115380) eGFR Calculation mL/min/1.73m2 (Non-) (test code = 9952072680) eGFR Calculation mL/min/1.73m2 () (test code = 3890924251) JAMES (test code = JAMES) Association of [...] tests). Lab Interpretation Abnormal (test code = 51007-3) [facility] [place]AllenHEPATIC FUNCTION PANEL (14280) (ALB,T.PRO,BILI T,BU/BC,ALT,AST,ALK PHOS)2020-08-21 08:52:00 Test Item Value Reference Range Interpretation Comments TOTAL BILI (test code = 1727763306) 0.8 mg/dL 0.1-1.1 BILI UNCON (test code = 6162797462) 0.3 mg/dL 0.1-1.1 BILI CONJ (test code = 0277460692) 0.0 mg/dL 0-0.3 T PROTEIN (test code = 6625203342) 5.7 g/dL 6.3-8.2 L ALBUMIN (test code = 3105534806) 2.7 g/dL 3.5-5 L ALK PHOS (test code = 5486004512) 245 U/L 34-122 H ALTv (test code = 1742-6) 37 U/L 5-50 AST(SGOT) (test code = 0296893382) 43 U/L 13-40 H Lab Interpretation (test code = Abnormal 44453-0) [facility] [place]
[2022-01-11] MEDS ORDERED: HYDROMORPHONE HCL 1 MG/ML INJ ONE (20:55)
[2022-01-11] MEDS ORDERED: CYCLOBENZAPRINE 10 MG TAB ONE (22:43)
--- NOTE | 2022-01-11 23:12 | ER ---
Nurse's Notes [facility] Name: Kiel Ngo Age: 71 yrs Sex: Male : 1950 Arrival Date: 01/11/2022 Time: 20:15 Bed 16 Private MD: Diagnosis: Right Shoulder Pain, Right Hip Pain, Chronic Pain Presentation: 01/11 20:16 Chief complaint:. ab2 20:16 Chief complaint: Patient states: "40 years ago I hurt my right shoulder and my right ab2 hip and it didn't start bothering me until today when I was trying to move myself over in bed." Pt c/o right shoulder and right hip pain. Denies any recent injury or trauma. Coronavirus screen: Vaccine status: Patient reports being unvaccinated. Client denies travel out of the [place] in the last 14 days. At this time, the client does not indicate any symptoms associated with coronavirus-19. Ebola Screen: Patient negative for fever greater than or equal to 101.5 degrees Fahrenheit, and additional compatible Ebola Virus Disease symptoms Patient denies exposure to infectious person. Patient denies travel to an Ebola-affected area in the 21 days before illness onset. No symptoms or risks identified at this time. Initial Sepsis Screen: Does the patient meet any 2 criteria? No. Patient's initial sepsis screen is negative. Does the patient have a suspected source of infection? No. Patient's initial sepsis screen is negative. Risk Assessment: Do you want to hurt yourself or someone else?. Onset of symptoms is unknown. 20:16 Method Of Arrival: EMS: [facility] ab2 20:21 Acuity: JOZEF 3 ab2 Triage Assessment: 20:20 General: Appears in no apparent distress. comfortable, Behavior is calm, cooperative, ab2 appropriate for age. Pain: Complains of pain in right arm Pain currently is 10 out of 10 on a pain scale. Neuro: Level of Consciousness is awake, alert, obeys commands, Oriented to person, place, time, situation, Appropriate for age. Historical: - Allergies: 20:20 Demerol; ab2 20:20 metformin; ab2 20:20 Morphine; ab2 - PMHx: 20:20 Atrial fibrillation; chronic back pain; Chronic right leg pain; neuropathy; ab2 - PSHx: 20:20 back sx; PANCREAS SX; R. Ankle SX; ab2 - Immunization history:: Adult Immunizations up to date. - Social history:: Smoking status: Patient denies any tobacco usage or history of. Screenin:26 Abuse screen: Denies threats or abuse. Denies injuries from another. Nutritional baudilio screening: No deficits noted. Tuberculosis screening: No symptoms or risk factors identified. Fall Risk None identified. Assessment: 20:23 Reassessment: No changes from previously documented assessment. baudilio 21:27 Reassessment: It should be noted that the MD verbally dc'd labs and any "cardiac" baudilio orders. The pt has recv'd his xray and his meds. 21:52 Reassessment: The charge nurse left word that the ambulance is coming to take the pt baudilio back home. 22:44 Reassessment: The charge said her computer "glitched" and the pt is not up for dc. baudilio Awaiting dispo. 23:22 Reassessment: EMS is here to take the pt back home. Report, albeit brief, was given. baudilio Vital Signs: 20:16 BP 117 / 64; Pulse 98; Resp 17; Temp 98.7(O); Pulse Ox 99% on R/A; Weight 81.65 kg; ab2 Height 5 ft. 11 in. (180.34 cm); Pain 10/10; 20:24 BP 136 / 78; Pulse 94; Resp 18; Temp 98.5; Pulse Ox 97% on R/A; Pain 5/10; baudilio 20:48 BP 144 / 79; Pulse 93; Resp 16; Pulse Ox 97% on R/A; Pain 6/10; baudilio 21:51 BP 141 / 68; Pulse 85; Resp 18; Pulse Ox 96% on R/A; Pain 2/10; baudilio 23:21 BP 112 / 59; Pulse 89; Resp 16; Pulse Ox 96% on R/A; Pain 0/10; baudilio 20:16 Body Mass Index 25.10 (81.65 kg, 180.34 cm) ab2 ED Course: 20:15 Patient arrived in ED. ab2 20:20 Triage completed. ab2 20:21 Arm band placed on right wrist. ab2 20:23 Elvia Galloway, RN is Primary Nurse. baudilio 20:26 No provider procedures requiring assistance completed. baudilio 20:37 Ruben Mendoza MD is Attending Physician. [facility] 20:48 Patient has correct armband on for positive identification. Placed in gown. Bed in low baudilio position. Call light in reach. Side rails up X2. 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 Pulse ox on. NIBP on. 22:23 Shoulder Right (2 View) XRAY In Process Unspecified. EDMS 22:23 Hip Right 2 View XRAY In Process Unspecified. EDMS 23:12 Dontae Miguel MD is Referral Physician. [facility] Administered Medications: 21:02 Drug: Dilaudid (HYDROmorphone) 1 mg Route: IM; Site: left gluteus; baudilio 22:42 Drug: Flexeril (cyclobenzaprine) 10 mg Route: PO; baudilio Outcome: 20:48 Condition: stable baudilio 23:11 Discharge ordered by . [facility] 23:31 Patient left the ED. baudilio Signatures: Dispatcher [employer] EDRuben Pacheco MD MD [facility] Elvia Galloway RN RN Eliazar Quinn ab2 Corrections: (The following items were deleted from the chart) 20:22 20:16 Acuity: JOZEF 4 ab2 ab2
--- NOTE | 2022-01-11 23:12 | EDPHYS ---
Physician Documentation [facility] [place], [place] Name: Kiel Ngo Age: 71 yrs Sex: Male : 1950 Arrival Date: 01/11/2022 Time: 20:15 Bed 16 Private MD: ED Physician Ruben Mendoza HPI: 01/11 21:06 This 71 yrs old Male presents to ER via EMS with complaints of Right shoulder pain. mh7 Right hip pain. 21:06 The patient or guardian complains of pain, that is chronic. right shoulder, right hip. mh7 Context: The problem was sustained at home, resulted from pulling himself up in bed, The patient reports no decreased range of motion. The patient reports no obvious deformity. Onset: The symptoms/episode began/occurred this morning, today. Modifying factors: the symptoms are alleviated by nothing. The symptoms are aggravated by movement. Associated signs and symptoms: Pertinent negatives: abdominal pain, chest pain, diaphoresis, dyspnea, neck pain, shortness of breath, tingling. Severity of symptoms: At their worst the symptoms were moderate, this morning, in the emergency department the symptoms have improved, mildly. Treatment prior to arrival includes: no previous treatment. The patient has experienced similar episodes in the past, multiple times. Bed bound and history of chronic pain. States that pain started when he was trying to pull himself up in bed today. Also states that he ran out of his prescribed Dilaudid pills a few days ago and has not followed up or contacted his doctor. He denies any other complaints.. Historical: - Allergies: 20:20 Demerol; ab2 20:20 metformin; ab2 20:20 Morphine; ab2 - PMHx: 20:20 Atrial fibrillation; chronic back pain; Chronic right leg pain; neuropathy; ab2 - PSHx: 20:20 back sx; PANCREAS SX; R. Ankle SX; ab2 - Immunization history:: Adult Immunizations up to date. - Social history:: Smoking status: Patient denies any tobacco usage or history of. ROS: 21:06 Constitutional: Negative for fever, chills, and weight loss, Eyes: Negative for injury, mh7 pain, redness, and discharge, ENT: Negative for injury, pain, and discharge, Neck: Negative for injury, pain, and swelling, Cardiovascular: Negative for chest pain, palpitations, and edema, Respiratory: Negative for shortness of breath, cough, wheezing, and pleuritic chest pain, Abdomen/GI: Negative for abdominal pain, nausea, vomiting, diarrhea, and constipation, Back: Negative for injury and pain, : Negative for injury, bleeding, discharge, and swelling, Skin: Negative for injury, rash, and discoloration, Neuro: Negative for headache, weakness, numbness, tingling, and seizure, Psych: Negative for depression, anxiety, suicide ideation, homicidal ideation, and hallucinations, Allergy/Immunology: Negative for hives, rash, and allergies, Endocrine: Negative for neck swelling, polydipsia, polyuria, polyphagia, and marked weight changes, Hematologic/Lymphatic: Negative for swollen nodes, abnormal bleeding, and unusual bruising. Exam: 21:06 Head/Face: Normocephalic, atraumatic. Eyes: Pupils equal round and reactive to light, mh7 extra-ocular motions intact. Lids and lashes normal. Conjunctiva and sclera are non-icteric and not injected. Cornea within normal limits. Periorbital areas with no swelling, redness, or edema. Neck: Trachea midline, no thyromegaly or masses palpated, and no cervical lymphadenopathy. Supple, full range of motion without nuchal rigidity, or vertebral point tenderness. No Meningismus. Chest/axilla: Normal chest wall appearance and motion. Nontender with no deformity. No lesions are appreciated. Cardiovascular: Regular rate and rhythm with a normal S1 and S2. No gallops, murmurs, or rubs. Normal PMI, no JVD. No pulse deficits. Respiratory: Lungs have equal breath sounds bilaterally, clear to auscultation and percussion. No rales, rhonchi or wheezes noted. No increased work of breathing, no retractions or nasal flaring. Abdomen/GI: Soft, non-tender, with normal bowel sounds. No distension or tympany. No guarding or rebound. No evidence of tenderness throughout. Back: No spinal tenderness. No costovertebral tenderness. Full range of motion. Skin: Warm, dry with normal turgor. Normal color with no rashes, no lesions, and no evidence of cellulitis. Psych: Awake, alert, with orientation to person, place and time. Behavior, mood, and affect are within normal limits. 21:06 Constitutional: The patient appears in no acute distress, alert, awake, uncomfortable. 21:06 Musculoskeletal/extremity: Extremities: noted in the right shoulder: decreased ROM, mh7 tenderness, noted in the right hip: decreased ROM, tenderness, Circulation is intact in all extremities. Sensation intact. Compartment Syndrome exam of affected extremity: is normal. no numbness, no tingling, no sensation deficit, no palor, no weak pulses, Joints: the right shoulder displays limited range of motion, tenderness, the right hip displays limited range of motion, tenderness, Tendon exam: specific tendon testing normal through active and passive range of motion 21:06 Neuro: Orientation: is normal, Mentation: is normal, Memory: is normal, Cranial nerves: mh7 grossly normal, Cerebellar function: is grossly normal, Motor: no acute changes, Sensation: no obvious gross deficits, Gait: not tested. seizure activity, is not displayed by the patient, Abnormal movements: there are no abnormal movements. Vital Signs: 20:16 BP 117 / 64; Pulse 98; Resp 17; Temp 98.7(O); Pulse Ox 99% on R/A; Weight 81.65 kg; ab2 Height 5 ft. 11 in. (180.34 cm); Pain 10/10; 20:24 BP 136 / 78; Pulse 94; Resp 18; Temp 98.5; Pulse Ox 97% on R/A; Pain 5/10; baudilio 20:48 BP 144 / 79; Pulse 93; Resp 16; Pulse Ox 97% on R/A; Pain 6/10; baudilio 21:51 BP 141 / 68; Pulse 85; Resp 18; Pulse Ox 96% on R/A; Pain 2/10; baudilio 23:21 BP 112 / 59; Pulse 89; Resp 16; Pulse Ox 96% on R/A; Pain 0/10; baudilio 20:16 Body Mass Index 25.10 (81.65 kg, 180.34 cm) ab2 MDM: 23:02 Differential diagnosis: Anterior dislocation without fracture, Posterior dislocation mh7 without fracture, DJD, tendonitis, arthritis. Data reviewed: vital signs, nurses notes, EMS record, old medical records, radiologic studies, plain films. Data interpreted: Pulse oximetry: on room air is 97 %. Interpretation: normal. Counseling: I had a detailed discussion with the patient and/or guardian regarding: the historical points, exam findings, and any diagnostic results supporting the discharge/admit diagnosis, the presence of at least one elevated blood pressure reading (>120/80) during this emergency department visit, radiology results, to return to the emergency department if symptoms worsen or persist or if there are any questions or concerns that arise at home. Response to treatment: the patient's symptoms have resolved after treatment, the patient's blood pressure is in an acceptable range, mental status has returned to baseline, the patient no longer shows bradycardia, the patient is not short of breath, the patient is not tachycardic, the patient's pain is gone, the patient's temperature has normalized. 23:11 Patient medically screened. [facility] 01/11 20:51 Order name: EKG; Complete Time: 20:52 [facility] 01/11 20:55 Order name: Shoulder Right (2 View) XRAY [facility] 01/11 20:55 Order name: Hip Right 2 View XRAY [facility] Administered Medications: 21:02 Drug: Dilaudid (HYDROmorphone) 1 mg Route: IM; Site: left gluteus; baudilio 22:42 Drug: Flexeril (cyclobenzaprine) 10 mg Route: PO; baudilio Disposition Summary: 01/11/22 23:11 Discharge Ordered Location: Home [facility] Problem: chronic [facility] Symptoms: have improved [facility] Condition: Stable [facility] Diagnosis - Right Shoulder Pain, Right Hip Pain, Chronic Pain [facility] Followup: [facility] - With: Private Physician - When: 1 - 2 days - Reason: Worsening of condition, Recheck today's complaints, Continuance of care, Re-evaluation by your physician Followup: [facility] - With: Dontae Miguel MD - When: 5 - 6 days - Reason: Worsening of condition, Recheck today's complaints Discharge Instructions: - Discharge Summary Sheet [facility] - Chronic Pain, Adult mh7 - Shoulder Pain, [id number] [facility] - Hip Pain [facility] Forms: - Medication Reconciliation Form [facility] - Thank You Letter [facility] - Antibiotic Education [facility] - Prescription Opioid Use [facility] Signatures: Dispatcher [employer] Ruben Tenorio MD MD [facility] Elvia Galloway RN RN bo Bleininger, Alexis ab2 Corrections: (The following items were deleted from the chart) 20:51 20:51 Urine Dipstick-Ancillary ordered. [place] [id number] 20:52 20:51 Cardiac monitoring ordered. [place] [address] : 20:51 EKG - Nurse/Tech ordered. [place] [id number] 20:55 20:51 IV Saline Lock ordered. [place] [address] 20:56 20:51 Labs collected and sent ordered. [place] [address] 20:56 20:51 Oxygen Per Protocol ordered. [place] [address] : 20:51 O2 Sat Monitoring ordered. [place] [address] 21:02 20:52 Head Brain Wo Cont+CT.RAD.BRZ ordered. EDMS EDMS 21:12 20:52 Chest Single View+RAD.RAD.BRZ ordered. EDMS EDMS
[2022-01-12 00:47] VITALS: TEMP 98.5
[2022-01-12 00:50] VITALS: O2SAT 96
[2022-01-12 00:51] VITALS: BP 112/59
--- NOTE | 2022-01-12 13:27 | RAD REPORT ---
EXAM DESCRIPTION: Shoulder Right 2 View - 01/11/2022 10:21 pm CLINICAL HISTORY: 71 years, Male, PAIN Shoulder Right 2 View COMPARISON: None. FINDINGS: 2 X-ray views of the Right shoulder (internal rotation and external rotation views) were p erformed. There is no evidence for fracture or dislocation. There is spur formation, minimal subchondral cyst w ithin the glenohumeral joint corresponding to moderate osteoarthritis. There are no gross intraosse ous lesions. The AC joint demonstrate minimal spur formation. There is no evidence for separation. IMPRESSION: Moderate osteoarthritis of the glenohumeral joint and AC joint. No evidence for acute bony injuries. Electronically signed by: Curt Gallo MD 01/11/2022 10:52 PM CDT Due to temporary technical issues with the PACS/Fluency reporting system, reports are being signed by the in house radiologists without review as a courtesy to insure prompt reporting. The interpreting radiologist is fully responsible for the content of the report.
--- NOTE | 2022-01-12 13:31 | RAD REPORT ---
EXAM DESCRIPTION: RAD - Hip Right 2 View - 01/11/2022 10:22 pm CLINICAL HISTORY: 71 years, Male, PAIN Hip Right 2 View COMPARISON: None. FINDINGS: 2 views of the hip (frontal view of the right hip and gross lateral view of the right hip) were obtained. There is mild bony osteopenia. No areas of acute bony injuries were demonstrated. N o gross soft tissue abnormality is identified. There are no gross intraosseous lesions. No perios teal reaction were seen. The right hip joint demonstrate moderate degenerative changes. There is a battery reservoir of a most likely epidural neurostimulator along the right lower quadrant. IMPRESSION: Moderate degenerative changes of the right hip joint. No evidence for acute bony injuries. Electronically signed by: uCrt Gallo MD 01/11/2022 10:53 PM CDT Due to temporary technical issues with the PACS/Fluency reporting system, reports are being signed by the in house radiologists without review as a courtesy to insure prompt reporting. The interpreting radiologist is fully responsible for the content of the report.
== END 2022-01-11 23:31 | disposition home or self-care (01) ==
LOC: ER 20:08
DX: M25.511 Pain in right shoulder (principal); M25.551 Pain in right hip; G89.29 Other chronic pain; I48.91 Unspecified atrial fibrillation; Z88.5 Allergy status to narcotic agent; Z88.8 Allergy status to other drugs, medicaments and biological substances
CPT/HCPCS: 73502; 73030; 96372; 99284; J1170

== ENCOUNTER 2022-01-15 07:11 | Emergency (ER) | payer OTHER ==
--- OUTSIDE RECORDS SUMMARY | 2022-01-15 07:19 | XMS REPORT | Continuity of Care Document ---
:1950 Author Organization [facility] t Address [address] [place] [address] Dr. Motley [address] [place] [id number] Care Team Providers Name Role Phone DIOGENES [...] Policy Number Effective Date Expiration Date S [facility] MEDIC[place] PART A [id number] 2007 \\T\\ B 00:00:00 [employer] INDEMNITY [id number] 2016 00:00:00 MEDICARE PART A [id number] 2014 \\T\\ B - MEDICARE 00:00:00 INDEMNITY/TRADITIO [id number] NAL CHOICE - [employer] 00:00:00 Problems Condition [...] ents Source Name Type Date Date Clinician [place] [facility] Active Rash 2019- Univers ty to [...] vers NE INGREDI 3-16 ity of 00:00: [place] 00 [facility] Branch GLIMEPIR DRUG Active Hives Univers EFREN INGREDI 3-16 ity of 00:00: [place] 00 Medical Branch METFORMI DRUG Active ITCHING Univers N INGREDI 3-16 ity of 00:00: [place] [id number] Medical Branch Social History Social Habit Start Date Stop Date Quantity Comments Source Exposure to Not sure University of SARS-CoV-2 [facility] (event) Branch History of Chews Tobacco University of tobacco use [facility] [place] [facility] History SDSD 2020-11-17 2020-11-17 5 University o f Financial 00:00:00 00:00:00 [facility] Branch History SDSD Food 2020-11-17 2020-11-17 1 Univers ity of Worry 00:00:00 00:00:00 [facility] [place] [facility] History [facility] Food 2020-11-17 2020-11-17 1 Univers ity of Scarcity 00:00:00 00:00:00 [facility] [place] [facility] History [facility] 2020-11-17 2020-11-17 1 University o f Transport Med 00:00:00 00:00:00 [facility] al Branch History [facility] 2020-11-17 2020-11-17 1 University o f Transport Non-Med 00:00:00 00:00:00 [facility] edical Branch Education 2020-11-16 2020-11-16 21 [place] of 00:00:00 00:00:00 [facility] [place] [facility] Alcohol intake 2020-11-16 2020-11-16 Ex-drinker [facility] 00:00:00 00:00:00 (finding) [facility] [place] [facility] Tobacco use and 2020-08-21 2020-08-21 Former user Universi ty of exposure 00:00:00 00:00:00 [facility] [place] [facility] Tobacco Comment 2020-08-21 2020-08-21 quit 10 years Univer sity of 00:00:00 00:00:00 ago, started in [place] Med ica 2nd year of Branch college (~40 years) Alcohol Comment 2020-08-21 2020-08-21 Used to have 2-3 Uni versity of 00:00:00 00:00:00 six-packs of [place] Medica l beer daily x 20 Branch years, quit 2005 History SDSD 2020-08-21 2020-08-21 99 University o f Alcohol Frequency 00:00:00 00:00:00 [place] M edical Branch History SDSD 2020-08-21 2020-08-21 99 [place] o f Alcohol Std 00:00:00 00:00:00 [place] Medical Drinks Branch History [facility] 2020-08-21 2020-08-21 99 [place] o f Alcohol Binge 00:00:00 00:00:00 [facility] al Branch Sex [birth year] Universit y of 00:00:00 00:00:00 [place] [facility] Smoking Status Start Date Stop Date Source Never smoker [facility] Branch Medications Ordered Filled Start [...] by ity of tablet 16:47: mouth at [place] 18 bedtime. Medical Branch HYDROmorpho Yes 4mg [...] 0845, Until Discontinu ed, Routine amLODIPine Yes [id number] 10mg Take 1 Univers 10 mg 3-07 tablet by ity of tablet 00:00: mouth [place] 00 daily. Medical Branch clotrimazol 0 Yes [id number] Apply to Univers e 1 % 3-07 face/ears, ity of topical 00:00: armpits, [place] cream 00 pannus and Medical back/any Branch other rash twice a day fluocinonid 0 Yes [id number] Apply to Univers e 0.05 % 3-07 scalp ity of solution 00:00: twice a [place] 00 day Medical Branch triamcinolo 0 Yes [id number] Apply to Univers ne 3-07 back, ity of acetonide 00:00: armpits [place] 0.1 % cream 00 and other Med ical affected Branch areas twice daily, please mix with clotrimazo le hydrOXYzine 0 Yes [id number] 10mg Take 1 Univers 10 mg 3-07 tablet by ity of tablet 00:00: mouth 2 00 (two) Medical times Branch daily. amLODIPine Yes [id number] 10mg Take 1 Univers 10 mg 3-07 tablet by ity of tablet 00:00: mouth 00 daily. Medical Branch clotrimazol 2020-0 Yes [id number] Apply to Univers e 1 % 3-07 face/ears, ity of topical 00:00: armpits, [place] cream 00 pannus and Medical back/any Branch other rash twice a day fluocinonid 2020-0 Yes [id number] Apply to Univers e 0.05 % 3-07 scalp ity of solution 00:00: twice a day Medical Branch triamcinolo 2020-0 Yes [id number] Apply to Univers ne 3-07 back, ity of acetonide 00:00: armpits [place] 0.1 % cream 00 and other Med ical affected Branch areas twice daily, please mix with clotrimazo le hydrOXYzine Yes [id number] 10mg Take 1 Univers 10 mg 3-07 tablet by ity of tablet 00:00: mouth 2 (two) Medical times Branch daily. amLODIPine Yes [id number] 10mg Take 1 Univers 10 mg 3-07 tablet by ity of tablet 00:00: mouth 00 daily. Medical Branch clotrimazol 0 Yes [id number] Apply to Univers e 1 % 3-07 face/ears, ity of topical 00:00: armpits, [place] cream 00 pannus and Medical back/any Branch other rash twice a day fluocinonid 2020-0 Yes [id number] Apply to Univers e 0.05 % 3-07 scalp ity of solution 00:00: twice a [place] 00 day Medical Branch triamcinolo 2020-0 Yes [id number] Apply to Univers ne 3-07 back, ity of acetonide 00:00: armpits [place] 0.1 % cream 00 and other Med ical affected Branch areas twice daily, please mix with clotrimazo le hydrOXYzine 2021-0 Yes [id number] 10mg Take 1 Univers 10 mg 3-07 tablet by ity of tablet 00:00: mouth 2 [place] 00 (two) Medical times Branch daily. amLODIPine Yes [id number] 10mg Take 1 Univers 10 mg 3-07 tablet by ity of tablet 00:00: mouth [place] 00 daily. Medical Branch clotrimazol Yes [id number] Apply to Univers e 1 % 3-07 face/ears, ity of topical 00:00: armpits, [place] cream 00 pannus and Medical back/any Branch other rash twice a day fluocinonid 0 Yes [id number] Apply to Univers e 0.05 % - scalp ity of solution 00:00: twice a [place] 00 day Medical Branch triamcinolo Yes [id number] Apply to Univers ne 3-07 back, ity of acetonide 00:00: armpits [place] 0.1 % cream 00 and other Med ical affected Branch areas twice daily, please mix with clotrimazo le hydrOXYzine Yes [id number] 10mg Take 1 Univers 10 mg 3-07 tablet by ity of tablet 00:00: mouth 2 [place] 00 (two) Medical times Branch daily. cephALEXin 2020-2020- No [id number] 500mg Take 1 Univers 500 mg 3-04 14- capsule by ity of capsule 00:00: 05:59 mouth [place] 00 :00 every 6 Medical (six) Branch hours for 3 days. cephALEXin 2020-0 202- No [id number] 500mg Take 1 Univers 500 mg 3-04 14-11 capsule by ity of capsule 00:00: 05:59 mouth [place] 00 :00 every 6 Medical (six) Branch hours for 3 days. hydrOXYzine 2020-0 2020- No [id number] 10mg Take 1 Univers 10 mg 3-04 14-07 tablet by ity of tablet 00:00: 00:00 mouth 2 [place] 00 :00 (two) Medical times Branch daily. morpHINE Yes 4mg 4 mg, Slow Uni vers injection 4 - IV Push, ity of mg 22:40: Q6HPRN, [place] 02 Starting Medical 12/16/20 Branch at 1640, [...] Until Discontinu ed, Routine amLODIPine 2020- No [id number] 10mg Take 1 Univers 10 mg 12-15 tablet by ity of tablet 00:00: 00:00 mouth [place] 00 :00 daily. Medical Branch HYDROmorpho 2020- No 1mg 1 mg, Univ ers ne 12-14 Oral, ity of (DILAUDID) 17:35: 15:18 Q6HPRN, [place] tablet 1 mg 30 :06 Starting Medi jose c [facility] 12/14/20 Branch at 1135, Until Fri12/15/20 at 0918, Routine, Pain (scale 7-10) hydrOXYzine Yes 10mg 10 mg, Univ ers (ATARAX) 12-14 Oral, BID, ity o f tablet 10 17:30: First dose [place] mg 00 on [facility] Medical 12/14/20 at Branch 1130, Until Discontinu ed, Routine lisinopriL Yes 5mg 5 mg, Univer s (PRINIVIL,Z 12-14 Oral, ity of ESTRIL) 17:30: DAILY, [place] tablet 5 mg 00 First dose Me dical on [facility] Branch 12/14/20 at 1130, Until Discontinu ed, Routine triamcinolo 2020- No [id number] Apply to [facility] ne 12-14 back, ity of acetonide 00:00: 00:00 armpits [place] 0.1 % cream 00 :00 and other Med ical affected Branch areas twice daily, please mix with clotrimazo le clotrimazol 2020- No [id number] Apply to Univers e 1 % 12-14 face/ears, ity of topical 00:00: 00:00 armpits, [place] cream 00 :00 pannus and Medical back/any Branch other rash twice a day fluocinonid 2020- No [id number] Apply to Univers e 0.05 % 12-14 scalp ity of solution 00:00: 00:00 twice a [place] 00 :00 day Medical Branch hydrOXYzine 2020- No [id number] 10mg Take 1 Univers 10 mg 12-14 [...] 1 [place] injection 4 00 :00 dose, [facility] ical mg 12/12/20 at Branch 2300, Routine traMADoL 2020- No 50mg 50 mg, Univer s (ULTRAM) 12-13 03-03 Oral, ity of tablet 50 03:45: 03:34 ONCE, 1 [place] mg 00 :00 dose, [facility] 12/12/20 at Branch 2145, Routine insulin Yes 15U 15 Units, [facility] rs glargine 12-12 Subcutaneo ity o f (LANTUS 15:00: us, DAILY, [place] U-100) 00 First dose Medical injection on [facility] 15 Units 12/12/20 at 0900, Until Discontinu ed hydrOXYzine 2020- No 10mg 10 mg, Uni vers (ATARAX) 12-12 03-02 Oral, ity of tablet 10 08:15: 07:33 ONCE, 1 [place] mg 00 :00 dose, [facility] 12/12/20 at Branch 0215, Routine mirtazapine Yes 7.5mg 7.5 mg, Un toi (REMERON) 3-02 Oral, QHS, ity of tablet 7.5 03:00: First dose [place] mg 00 on [facility] 12/11/20 at Branch 2100, Until Discontinu ed, Routine venlafaxine Yes 300mg 300 mg, Un toi XR (EFFEXOR 3-02 Oral, QHS, it y of XR) 24 hr 03:00: First dose [place] capsule 300 00 on [facility] mg 12/11/20 at Branch 2100, Until Discontinu ed, Routine fluocinonid Yes Topical, Un toi e (LIDEX) 12-12 BID, First ity of 0.05 % 02:00: dose on [place] solution 00 Fri12/11/20 Medic al at 2000, Branch Until Discontinu ed, Routine acetaminoph 2020- No 1{tbl} 1 tablet, Univers en-codeine 12-1105 Oral, ity of (TYLENOL 23:23: 13:49 Q6HPRN, [place] #3) 300-30 43 :08 Starting Medic al [...] of 1,000 mg in 19:00: 17:35 Piggyback, [place] NaCl 0.9% 00 :26 Q8H ABX, Medica [...] ed, Routine insulin Yes 5U [address], [facility] s lispro 12-11 Subcutaneo ity of (human) 18:00: us, TID [place] (HumaLOG 00 MEALS, Medical U-100) First dose Branch injection 5 on Fri Units 12/11/20 at 1200, Until Discontinu ed Polyethylen Yes 17g 17 g, [facility] rs e Glycol 12-11 Oral, ity of 3350 17:47: I16ARDA, [place] (MIRALAX) 05 Starting Medica l powder 17 g Fri12/11/20 Br anch at 1147, Until Discontinu ed, Routine, Constipati on acetaminoph Yes 650mg 650 mg, Un toi en 12-11 Oral, ity of (TYLENOL) 16:51: Q6HPRN, [place] tablet 650 28 Starting Medic al mg [...]
Duration of therapy: 72 hours sennosides- Yes [id number] 1{tbl} Take 1 Univers docusate 2-09 tablet by ity of sodium 00:00: mouth 2 [place] 8.6-50 mg 00 (two) Medical per tablet times Branch daily. hydrocortis Yes [id number] Apply to [facility] one 2.5 % 11-21 affected ity of cream 00:00: area(s) 2 [place] 00 (two) Medical times Branch daily. blood sugar Yes [id number] Use to [facility] diagnostic 11-21 check ity of (FREESTYLE 00:00: blood [place] LITE 00 glucose Medical STRIPS) 4-5 times Branch strip daily. Polyethylen Yes [id number] 17g Take 1 Univers e Glycol 2-09 Packet by ity of 3350 17 00:00: mouth [place] gram powder 00 every 24 Medi jose c (twenty-fo Branch ur) hours as needed for Constipati on. sennosides- Yes [id number] 1{tbl} Take 1 Univers docusate 2-09 tablet by ity of sodium 00:00: mouth 2 [place] 8.6-50 mg 00 (two) Medical per tablet times Branch daily. hydrocortis 2020-0 Yes [id number] Apply to Univers one 2.5 % 2-09 affected ity of cream 00:00: area(s) 2 [place] 00 (two) Medical times Branch daily. blood sugar 2020-0 Yes [id number] Use to [facility] diagnostic 11-21 check ity of (FREESTYLE 00:00: blood [place] LITE 00 glucose Medical STRIPS) 4-5 times Branch strip daily. Polyethylen 2020-0 Yes [id number] 17g Take 1 Univers e Glycol 2-09 Packet by ity of 3350 17 00:00: mouth [place] gram powder 00 every 24 Medi jose c (twenty-fo Branch ur) hours as needed for Constipati on. sennosides- 2020-0 Yes [id number] 1{tbl} Take 1 Univers docusate 2-09 tablet by ity of sodium 00:00: mouth 2 [place] 8.6-50 mg 00 (two) Medical per tablet times Branch daily. hydrocortis 2020-0 Yes [id number] Apply to Univers one 2.5 % 2-09 affected ity of cream 00:00: area(s) 2 [place] 00 (two) Medical times Branch daily. blood sugar 2020-0 Yes [id number] Use to [facility] diagnostic 11-21 check ity of (FREESTYLE 00:00: blood [place] LITE 00 glucose Medical STRIPS) 4-5 times Branch strip daily. Polyethylen 2020-0 Yes [id number] 17g Take 1 Univers e Glycol 2-09 Packet by ity of 3350 17 00:00: mouth [place] gram powder 00 every 24 Medi jose c (twenty-fo Branch ur) hours as needed for Constipati on. sennosides- 2020-0 Yes [id number] 1{tbl} Take 1 Univers docusate 2-09 tablet by ity of sodium 00:00: mouth 2 [place] 8.6-50 mg 00 (two) Medical per tablet times Branch daily. hydrocortis 2020-0 Yes [id number] Apply to Univers one 2.5 % 2-09 affected ity of cream 00:00: area(s) 2 [place] 00 (two) Medical times Branch daily. blood sugar Yes [id number] Use to [facility] diagnostic 11-21 check ity of (FREESTYLE 00:00: blood [place] LITE 00 glucose Medical STRIPS) 4-5 times Branch strip daily. Polyethylen Yes [id number] 17g Take 1 Univers e Glycol 11-21 Packet by ity of 3350 17 00:00: mouth [place] gram powder 00 every 24 Medi jose c (twenty-fo Branch ur) hours as needed for Constipati on. Insulin 2020- No [id number] 15U inject 15 Univers Glargine 11-21 Units ity of (LANTUS 00:00: 05:59 under the [place] SOLOSTAR 00 :00 skin every Medic al U-100 morning Branch INSULIN) for 30 100 unit/mL days. (3 mL) injection venlafaxine 2020- No [id number] 150mg Take 1 Univers XR 150 mg 11-21 capsule by ity of 24 hr 00:00: 05:59 mouth 3 [place] capsule 00 :00 (three) Medical times Branch daily for 30 days. Insulin 2020- No [id number] 15U inject 15 Univers Glargine 11-21 Units ity of (LANTUS 00:00: 05:59 under the [place] SOLOSTAR 00 :00 skin every Medic al U-100 morning Branch INSULIN) for 30 100 unit/mL days. (3 mL) injection venlafaxine 2020- No [id number] 150mg Take 1 Univers XR 150 mg 11-21 capsule by ity of 24 hr 00:00: 05:59 mouth 3 [place] capsule 00 :00 (three) Medical times Branch daily for 30 days. triamcinolo 2020- No [id number] Apply to [facility] ne 11-21 area(s) 2 ity of acetonide 00:00: 00:00 (two) [place] 0.1 % cream 00 :00 times Medical daily. Branch cephALEXin 2020- No [id number] 1000mg Take 2 Univers 500 mg 11-21 capsules ity of capsule 00:00: 00:00 by mouth 3 [place] 00 :00 (three) Medical times Branch daily. doxycycline 2020- No [id number] 100mg Take 1 Univers hyclate 100 11-21 capsule by i ty of mg capsule 00:00: 00:00 mouth [place] 00 :00 every 12 Medical (twelve) Branch hours. lactobacill 2020- No [id number] 1{tbl} Take 1 Univers us 11-21 tablet by ity of acidophilus 00:00: 00:00 mouth 2 [place] 25 million 00 :00 (two) Medical cell -100 times Branch mg captab daily. bisacodyL 2020- No [id number] 10mg Insert 1 Univers 10 mg 11-21 Suppositor ity of suppository 00:00: 00:00 y into [place] 00 :00 rectum at Medical bedtime as Branch needed for Constipati on. ALPRAZolam 2020- No [id number] .25mg Take 1 Univers (XANAX) 11-21 tablet by ity of 0.25 mg 00:00: 00:00 mouth 2 [place] tablet 00 :00 (two) Medical times Branch daily. hydrOXYzine 2020- No [id number] 20mg Take 2 Univers 10 mg 11-21 [...] Units ity of (LANTUS 01:13: under the [place] SOLOSTSC) 36 skin. Medical 100 unit/mL Branch (3 [...] Units ity of (LANTUS 01:13: under the [place] SOLOSTAR) 36 skin. Medical 100 unit/mL Branch [...] Units ity of (LANTUS 01:13: under the [place] SOLOSTAR) 36 skin. Medical 100 unit/mL Branch [...] Units ity of (LANTUS 01:13: under the [place] SOLOSTAR) 36 skin. Medical 100 unit/mL Branch (3 mL) InPn INSULIN 2019-10 Yes 5U inject 5 Univer s ASPART 1-12 Units ity of (NOVOLOG 01:13: under the [facility] s FLEXPEN SC) 36 skin. Medical [...] Units ity of (LANTUS 01:13: under the [place] SOLOSTAR) 36 skin. Medical 100 unit/mL Branch [...] 34 :00 Medical Branch hydrocortis 2019- Yes [id number] Apply to Univers one 2.5 % 1-11 affected ity of cream 00:00: area(s) 2 [place] 00 (two) Medical times Branch daily. hydrOXYzine 2019- Yes [id number] 20mg Take 2 Univers 10 mg 1-11 tablets by ity of tablet 00:00: mouth [place] 00 every 8 Medical (eight) Branch hours as needed for Itching or Anxiety. Polyethylen 2019- Yes [id number] 17g Take 1 Univers e Glycol 1-11 Packet by ity of 3350 17 00:00: mouth [place] gram powder 00 every 24 Medi jose c (twenty-fo Branch ur) hours as needed for Constipati on. hydrocortis 2019- Yes [id number] Apply to Univers one 2.5 % 1-11 affected ity of cream 00:00: area(s) 2 [place] 00 (two) Medical times Branch daily. hydrOXYzine 2019- Yes [id number] 20mg Take 2 Univers 10 mg 1-11 tablets by ity of tablet 00:00: mouth [place] 00 every 8 Medical (eight) Branch hours as needed for Itching or Anxiety. Polyethylen 2019- Yes [id number] 17g Take 1 Univers e Glycol 1-11 Packet by ity of 3350 17 00:00: mouth [place] gram powder 00 every 24 Medi jose c (twenty-fo Branch ur) hours as needed for Constipati on. hydrocortis 2019- Yes [id number] Apply to Univers one 2.5 % 1-11 affected ity of cream 00:00: area(s) 2 [place] 00 (two) Medical times Branch daily. hydrOXYzine 2019- Yes [id number] 20mg Take 2 Univers 10 mg 1-11 tablets by ity of tablet 00:00: mouth [place] 00 every 8 Medical (eight) Branch hours as needed for Itching or Anxiety. Polyethylen 2020- Yes [id number] 17g Take 1 Univers e Glycol 1-11 Packet by ity of 3350 17 00:00: mouth [place] gram powder 00 every 24 Medi jose c (twenty-fo Branch ur) hours as needed for Constipati on. hydrocortis 2019- Yes [id number] Apply to Univers one 2.5 % 1-11 affected ity of cream 00:00: area(s) 2 [place] 00 (two) Medical times Branch daily. hydrOXYzine 2019- Yes [id number] 20mg Take 2 Univers 10 mg 1-11 tablets by ity of tablet 00:00: mouth [place] 00 every 8 Medical (eight) Branch hours as needed for Itching or Anxiety. Polyethylen 2019- Yes [id number] 17g Take 1 Univers e Glycol 1-11 Packet by ity of 3350 17 00:00: mouth [place] gram powder 00 every 24 Medi jose c (twenty-fo Branch ur) hours as needed for Constipati on. hydrocortis 2019- Yes [id number] Apply to Univers one 2.5 % 1-11 affected ity of cream 00:00: area(s) 2 [place] (two) Medical times Branch daily. hydrOXYzine 2019- Yes [id number] 20mg Take 2 Univers 10 mg 1-11 tablets by ity of tablet 00:00: mouth [place] 00 every 8 Medical (eight) Branch hours as needed for Itching or Anxiety. Polyethylen 2019- Yes [id number] 17g Take 1 Univers e Glycol 1-11 Packet by ity of 3350 17 00:00: mouth [place] gram powder 00 every 24 Medi jose c (twenty-fo Branch ur) hours as needed for Constipati on. hydrocortis 2019- Yes [id number] Apply to Univers one 2.5 % 1-11 affected ity of cream 00:00: area(s) 2 [place] 00 (two) Medical times Branch daily. hydrOXYzine 2019- Yes [id number] 20mg Take 2 Univers 10 mg 1-11 tablets by ity of tablet 00:00: mouth [place] 00 every 8 Medical (eight) Branch hours as needed for Itching or Anxiety. Polyethylen 2020- Yes [id number] 17g Take 1 Univers e Glycol 1-11 Packet by ity of 3350 17 00:00: mouth [place] gram powder 00 every 24 Medi jose c (twenty-fo Branch ur) hours as needed for Constipati on. hydrocortis 2019-10 Yes [id number] Apply to Univers one 2.5 % 1-11 affected ity of cream 00:00: area(s) 2 [place] 00 (two) Medical times Branch daily. hydrOXYzine 2019-10 Yes [id number] 20mg Take 2 Univers 10 mg 1-11 tablets by ity of tablet 00:00: mouth [place] 00 every 8 Medical (eight) Branch hours as needed for Itching or Anxiety. Polyethylen 2019-10 Yes [id number] 17g Take 1 Univers e Glycol 1-11 Packet by ity of 3350 17 00:00: mouth [place] gram powder 00 every 24 Medi jose c (twenty-fo Branch ur) hours as needed for Constipati on. triamcinolo 2019-10 2020- No [id number] Apply to [facility] 10-23 area(s) 2 ity of acetonide 00:00: 05:59 (two) [place] 0.1 % cream 00 :00 times Medical daily for Branch 14 days. triamcinolo 2019-10 2020- No [id number] Apply to [facility] 10-23 area(s) 2 ity of acetonide 00:00: 05:59 (two) [place] 0.1 % cream 00 :00 times Medical daily for Branch 14 days. triamcinolo 2019-10 2020- No [id number] Apply to [facility] 10-23 area(s) 2 ity of acetonide 00:00: 05:59 (two) [place] 0.1 % cream 00 :00 times Medical daily for Branch 14 days. KCL 2019-10 2020- No 40meq 40 mEq, Univers (KLOR-CON 1- 11-10 Oral, ONCE ity of M20) tablet 16:15: 16:23 NOW, 1 [place] 40 mEq 00 :00 dose, [facility] 08/22/20 Branch at 1015, Routine HYDROmorpho 2019-10 Yes 1mg 1 mg, Unive rs ne 1- Oral, ity of (DILAUDID) 15:07: Q6HPRN, [place] tablet 1 mg 53 Starting Medi jose c [facility] Branch 08/22/20 at 0907, Until Discontinu ed, Routine, Pain (scale 7-10) hydrocortis 2019- Yes Topical Uni vers one 2.5 % 1-10 (Apply To ity o f cream 02:00: Affected [place] 00 Areas), Medical BID, First Branch dose on 08/21/20 at 2000, Until Discontinu ed, Routine triamcinolo 2019- Yes Topical, Un toi ne 1-10 BID, First ity of acetonide 02:00: dose on [place] (TRIDERM) 00 Mon Medical 0.1 % cream 08/21/20 at Br anch 2000, Until Discontinu ed, Routine hydrOXYzine 2019-10 Yes 20mg 20 mg, Univ ers (ATARAX) 09 Oral, ity of tablet 20 17:39: Q8HPRN, [place] mg 12 Starting Medical [facility] Branch 08/21/20 at 1139, Until Discontinu ed, Routine, Itching, Anxiety sennosides- 2019-10 Yes 1{tbl} 1 tablet, Univers docusate 10-21 Oral, ity of sodium 15:00: DAILY, [place] (SENOKOT-S) 00 First dose Me dical 8.6-50 mg on Fri Branch per tablet 08/21/20 at 1 tablet 0900, Until Discontinu ed, Routine hydrocortis 2019-10 2020- No Topical Un toi one 1 % 10-21 (Apply To ity of cream 15:00: 22:54 Affected [place] 00 :48 Areas), Medical DAILY, Branch First [...] [facility] 08/21/20 at 0656, Until [facility] 08/21/20 at 1139, Routine, Itching, Mild Rash, Congestion /Allergies , alternate with hydroxyzin e hydrOXYzine 2019-10 2020- No 10mg 10 mg, Uni vers (ATARAX) 10-21 Oral, ity of tablet 10 10:20: 12:57 Q6HPRN, [place] mg 22 :12 Starting [facility] 08/21/20 at 0420, Until [facility] 08/21/20 at 0657, Routine, Itching, Anxiety Sliding 2019-10 Yes Subcutaneo Univ ers Scale 10-21 us, Q4H, ity of Insulin - 10:00: First dose [place] Aspart 00 (after Medical (NOVOLOG) + last Branch Fsbg modificati Testing on) on [facility] 08/21/20 at 0400, Until Discontinu ed, Routine lidocaine 5 2019-10 2020- No Topical, U nivers % ointment 10-21 ONCE, 1 ity o f 09:30: 09:14 dose, [facility] 00 :00 08/21/20 at [facility] 0330, Branch Routine Polyethylen 2019-10 Yes 17g 17 g, [facility] rs e Glycol 10-21 Oral, ity of 3350 08:29: [id number], [place] (MIRALAX) 09 Starting Medica l powder 17 g [facility] 08/21/20 at 0229, Until Discontinu ed, Routine, Constipati on lanolin 2019-10 Yes Topical, [facility]- 10-21 PRN, ity of w.pet-ceres 08:26: Starting [place] (EUCERIN) 30 [facility] cream 08/21/20 at Branch 0226, Until [...] hours. Branch blood sugar Yes Use to [facility] ers diagnostic -25 check ity of (FREESTYLE 00:00: blood [place] LITE 00 glucose Medical STRIPS) 4-5 times Branch strip daily. blood sugar Yes Use to [facility] ers diagnostic 4-25 check ity of (FREESTYLE 00:00: blood [place] LITE 00 glucose Medical STRIPS) 4-5 times Branch strip daily. blood sugar Yes Use to [facility] ers diagnostic -25 check ity of (FREESTYLE 00:00: blood [place] LITE 00 glucose Medical STRIPS) 4-5 times Branch strip daily. blood sugar Yes Use to [facility] ers diagnostic 4-25 check ity of (FREESTYLE 00:00: blood [place] LITE 00 glucose Medical STRIPS) 4-5 times Branch strip daily. blood sugar Yes Use to [facility] ers diagnostic 4-25 check ity [...] 13:00:00 148 mm[Hg] Univer sity of pressure [facility] Branch Diastolic blood 2021-08-22 13:00:00 84 mm[Hg] Unive rsity of pressure [facility] Heart rate 2021-08-22 13:00:00 103 /min [facility] Respiratory rate 2021-08-22 13:00:00 18 /min Univ ersity of [facility] Oxygen saturation in 2021-08-22 13:00:00 95 /min University of Arterial blood by [facility] Pulse oximetry Branch Body temperature 2021-08-22 12:22:00 36.72 [place] [facility] ersity of [facility] Branch Systolic blood 2020-12-17 18:35:00 139 mm[Hg] Univer sity of pressure [facility] Diastolic blood 2020-12-17 18:35:00 87 mm[Hg] Unive rsity of pressure [place] [facility] [place] Heart rate 2020-12-17 18:35:00 110 /min [facility] Body temperature 2020-12-17 18:35:00 37.72 [place] Univ ersity of [place] [facility] Respiratory rate 2020-12-17 18:35:00 18 /min Univ ersity of [place] [facility] Oxygen saturation in 2020-12-17 18:35:00 93 /min University of Arterial blood by [place] [employer] [facility] Pulse oximetry Branch Body height 2020-12-12 08:21:00 180.3 cm [facility] Body weight 2020-12-12 08:21:00 103.42 kg [facility] BMI 2020-12-12 08:21:00 31.80 kg/m2 [facility] Systolic blood 2020-12-17 18:35:00 139 mm[Hg] Univer sity of pressure [facility] Diastolic blood 2020-12-17 18:35:00 87 mm[Hg] Unive rsity of pressure [facility] Heart rate 2020-12-17 18:35:00 110 /min [facility] ty [facility] [place] [facility] Body temperature 2020-12-17 18:35:00 37.72 [place] Univ ersity of [place] [facility] Respiratory rate 2020-12-17 18:35:00 18 /min Univ ersity of [place] [facility] Oxygen saturation in 2020-12-17 18:35:00 93 /min University of Arterial blood by [place] [employer] jose c Pulse oximetry Branch Body height 2020-12-12 08:21:00 180.3 cm [facility] [place] [facility] Body weight 2020-12-12 08:21:00 103.42 kg [facility] [place] [facility] BMI 2020-12-12 08:21:00 31.80 kg/m2 [facility] [place] [facility] Systolic blood 2020-08-23 19:27:00 140 mm[Hg] Univer sity of pressure [facility] Diastolic blood 2020-08-23 19:27:00 79 mm[Hg] Unive rsity of pressure [facility] Heart rate 2020-08-23 19:27:00 99 /min [facility] [place] [facility] Body temperature 2020-08-23 19:27:00 36 [place] Univ [facility]ity [facility] [place] [facility] Respiratory rate 2020-08-23 19:27:00 18 /min Univ ersity of [place] [facility] Oxygen saturation in 2020-08-23 19:27:00 93 /min University of Arterial blood by [place] [employer] jose c Pulse oximetry Branch Body weight 2020-08-21 07:20:00 104.962 kg [facility] [place] [facility] BMI 2020-08-21 07:20:00 32.27 kg/m2 [facility] [place] [facility] Systolic blood 2020-08-23 19:27:00 140 mm[Hg] Univer sity of pressure [facility] Diastolic blood 2020-08-23 19:27:00 79 mm[Hg] Unive rsity of pressure [facility] Heart rate 2020-08-23 19:27:00 99 /min [facility] [place] [facility] Body temperature 2020-08-23 19:27:00 36 [place] Univ [facility]ity [facility] [place] [facility] Respiratory rate 2020-08-23 19:27:00 18 /min [facility] Oxygen saturation in 2020-08-23 19:27:00 93 /min University Arterial blood by [facility] Pulse oximetry [place] Body weight 2020-08-21 07:20:00 104.962 kg [facility] BMI 2020-08-21 07:20:00 32.27 kg/m2 [facility] Procedures Procedure Date / Time Performing Clinician Source Performed POCT GLUCOSE (AUTOMATED) 2020-12-17 15:42:00 [facility]OL[facility] PANEL 2020-12-17 10:45:[address] [facility] (NA, K, CL, CO2, GLUCOSE, [facility] BUN, CREATININE, CA) CBC WITH DIFF 2020-12-17 10:45:00 Paul Bean [facility] POCT GLUCOSE (AUTOMATED) 2020-12-17 02:36:00 HarrisonFavio davisonal [facility] XR TIBIA FIBULA 2 VW LEFT 2020-12-16 23:38:00 [facility] ([facility]) 2020-12-16 23:20:00 Harrison, Premal G Uni versity of [facility] POCT GLUCOSE (AUTOMATED) 2020-12-16 20:10:00 Harrison, Premal G Uni versity of [facility] POCT GLUCOSE (AUTOMATED) 2020-12-16 14:43:00 Harrison, [facility]al [facility] BASIC METABOLIC PANEL 2020-12-16 13:51:[address] [facility] (NA, K, CL, CO2, GLUCOSE, [facility] BUN, CREATININE, CA) CBC WITH DIFF 2020-12-16 13:51:00 Paul Bean [facility] POCT GLUCOSE (AUTOMATED) 2020-12-16 04:00:00 Harrison, Premal G Uni versity of [facility] POCT GLUCOSE (AUTOMATED) 2020-12-16 00:14:00 Harrison, Premal G Uni versity of [facility] CT CHEST PULMONARY 2020-12-15 22:29:38 Paul Bean [facility] ANGIOGRAM [facility] POCT GLUCOSE (AUTOMATED) 2020-12-15 19:26:00 Harrison, Premal G Uni versity of [facility] POCT GLUCOSE (AUTOMATED) 2020-12-15 15:13:00 Harrison, Premal G Uni versity of [facility] HB ECG ROUTINE & RHYTHM 2020-12-15 14:25:27 Cailin Romo [facility] Branch MAGNESIUM 2020-12-15 12:01:00 Paul Bean Sivakumar [facility] BASIC METABOLIC PANEL 2020-12-15 12:01:[address] [facility] (NA, K, CL, CO2, GLUCOSE, [facility] BUN, CREATININE, CA) CBC WITH DIFF 2020-12-15 12:01:00 Paul Bean Sivakumar [facility] POCT GLUCOSE (AUTOMATED) 2020-12-15 03:57:00 Harrison, Premal G Uni versity of [facility] POCT GLUCOSE (AUTOMATED) 2020-12-14 23:31:00 Harrison, Premal G Uni versity of [facility] POCT GLUCOSE (AUTOMATED) 2020-12-14 19:08:00 Harrison, Premal G Uni versity of [facility] POCT GLUCOSE (AUTOMATED) 2020-12-14 15:11:00 Harrison, Premal G Uni versity of [facility] POCT GLUCOSE (AUTOMATED) 2020-12-14 02:36:00 Harrison, Premal G Uni versity of [facility] POCT GLUCOSE (AUTOMATED) 2020-12-13 23:32:00 Harrison, Premal G Uni versity of [facility] POCT GLUCOSE (AUTOMATED) 2020-12-13 18:08:00 Harrison, Premal G Uni versity of [facility] BASIC METABOLIC PANEL 2020-12-13 15:39:[address] [facility] (NA, K, CL, CO2, GLUCOSE, [facility] BUN, CREATININE, CA) CBC WITH DIFF 2020-12-13 15:39:00 Paul Bean [facility] POCT GLUCOSE (AUTOMATED) 2020-12-13 14:06:00 Harrison, [facility] POCT GLUCOSE (AUTOMATED) 2020-12-13 03:07:00 Harrison, Premal [facility] POCT GLUCOSE (AUTOMATED) 2020-12-12 23:52:00 Harrison, Premal [facility] POCT GLUCOSE (AUTOMATED) 2020-12-12 20:28:00 Harrison, Premal [facility] POCT GLUCOSE (AUTOMATED) 2020-12-12 19:14:00 Harrison, Premal [facility] POCT GLUCOSE (AUTOMATED) 2020-12-12 14:33:00 Harrison, Premal [facility] MAGNESIUM 2020-12-12 08:58:00 Paul Bean Sivakumar [facility] BASIC METABOLIC PANEL 2020-12-12 08:58:[address] [facility] (NA, K, CL, CO2, GLUCOSE, [facility] BUN, CREATININE, CA) CBC WITH DIFF 2020-12-12 08:58:00 Paul Bean [facility] US ABDOMEN LIMITED 2020-12-12 06:32:26 Paul Bean [facility] POCT GLUCOSE (AUTOMATED) 2020-12-12 03:40:00 Hunter, Premal G Uni [facility] POCT GLUCOSE (AUTOMATED) 2020-12-12 00:06:00 Hunter, Premal G Uni [facility] XR HIPS 3 VW LEFT 2020-12-11 20:20:00 Paul Bean [facility] HB ECG ROUTINE & RHYTHM 2020-12-11 20:04:06 Cailin Romo [facility] VITAMIN B6, PLASMA 2020-12-11 19:17:00 Paul Bean [facility] POCT GLUCOSE (AUTOMATED) 2020-12-11 19:06:00 Rene Harrison [facility] CREATINE KINASE 2020-12-11 18:22:00 Clarisse Hannon [facility] VITAMIN B12, LEVEL 2020-12-11 18:22:00 Paul Bean [facility] FOLATE 2020-12-11 18:22:00 [facility] THYROID STIMULATING 2020-12-11 18:22:00 Cailin Romo [facility] HORMONE [facility] PROCALCITONIN 2020-12-11 18:22:00 [facility] VITAMIN B1 (THIAMINE), 2020-12-11 18:22:00 Paul Bean Sivakumar [facility] WHOLE BLOOD [facility] CT HEAD WO CONTRAST 2020-12-11 14:07:35 Sweetie Stout [facility] URINALYSIS 2020-12-11 13:44:[address] [facility] URINE CULTURE 2020-12-11 13:44:[address] [facility] COVID-19 (ID NOW RAPID 2020-12-11 12:31:[address] [facility] TESTING) [facility] LAB ONLY COVID 2020-12-11 12:31:00 Singer [facility] XR CHEST 1 VW 2020-12-11 12:07:[address] [facility] BLOOD CULTURE SCREEN 2020-12-11 12:02:00 Paco Lacey [facility] [place] MAGNESIUM 2020-12-11 12:02:00 Paul Bean Sivakumar [facility] FERRITIN SERUM 2020-12-11 12:02:00 Darnell Beanaham Sivakumar [facility] COMP. METABOLIC PANEL 2020-12-11 12:02:00 Paco Lacey [facility] ([id number]) Medical Branch CBC WITH DIFF 2020-12-11 12:02:[address] [facility] LACTIC ACID WHOLE BLOOD 2020-12-11 12:02:00 Paco Lacey [facility] BLOOD CULTURE SCREEN 2020-12-11 11:42:00 Paco Lacey [facility] EMERGENCY SERVICES 2020-12-11 06:01:00 Doctor Tabitha [facility] AGREEMENTS AND [place] [facility] AUTHORIZATIONS HOSPITAL ADMISSION 2020-12-11 06:01:[address] [facility] Name [facility] HEALTH - OTHER 2020-11-11 06:01:00 Doctor Tabitha [facility] Name [facility] [employer] [facility] 2020-10-30 06:01:00 Doctor Tabitha [facility] Name [facility] EXTERNAL PROVIDER RECORDS 2020-09-01 06:01:00 Doctor Tabitha [facility] POCT GLUCOSE (AUTOMATED) 2020-08-23 18:09:00 Kelly Washington [facility] POCT GLUCOSE (AUTOMATED) 2020-08-23 14:14:00 Kelly Washington [facility] MAGNESIUM 2020-08-23 11:18:00 Ramya, [facility] BASIC METABOLIC PANEL 2020-08-23 11:18:00 [facility] (NA, K, CL, CO2, GLUCOSE, Medica l Branch BUN, CREATININE, CA) CBC WITH DIFF 2020-08-23 11:18:00 [facility] POCT GLUCOSE (AUTOMATED) 2020-08-23 10:21:00 [facility] ([facility]OMATED) 2020-08-23 05:55:00 Kelly [facility] POCT GLUCOSE (AUTOMATED) 2020-08-23 03:00:00 Kelly Washington[facility] POCT GLUCOSE (AUTOMATED) 2020-08-22 23:38:00 [facility] PO[facility]SE (AUTOMATED) 2020-08-22 19:04:00 [facility] PO[facility]SE (AUTOMATED) 2020-08-22 13:49:00 Kelly Washington [facility] MAGNESIUM 2020-08-22 10:10:00 Ramya [facility] HEPATIC FUNCTION PANEL 2020-08-22 10:10:00 Jill Aguila [facility] ([id number]) (ALB,T.PRO,BILI Medical Branch T,BU/BC,ALT,AST,ALK PHOS) BASIC METABOLIC PANEL 2020-08-22 10:10:00 Fessenden [facility] (NA, K, CL, CO2, GLUCOSE, Medica l Branch BUN, CREATININE, CA) LIPID PANEL (74000)(TOTAL 2020-08-22 10:10:00 Fessenden [facility] TRIGLYCERIDES, HDL) CBC WITH DIFF 2020-08-22 10:10:00 Fessenden [facility] POCT GLUCOSE (AUTOMATED) 2020-08-22 10:10:00 Kelly Washington [facility] POCT GLUCOSE (AUTOMATED) 2020-08-22 07:13:00 Kelly Washington [facility] POCT GLUCOSE (AUTOMATED) 2020-08-22 02:24:00 Kelly Washington [facility] POCT GLUCOSE (AUTOMATED) 2020-08-21 23:40:00 Kelly Washington [facility] POCT GLUCOSE (AUTOMATED) 2020-08-21 18:10:00 Kelly Washington [facility] POCT GLUCOSE (AUTOMATED) 2020-08-21 13:39:00 Kelly Washington [facility] ETHANOL 2020-08-21 12:35:00 [facility] ACTIVATED PARTIAL 2020-08-21 12:35:00 Padmini [facility] THRMPLAS [facility] GALV ONLY - SYPHILIS 2020-08-21 12:35:00 Padmini [facility] IGG/IGM [facility] LACTATE DEHYDROGENASE 2020-08-21 10:09:00 Ramya, [facility] GALV/CLC ONLY - URINE 2020-08-21 10:09:00 Jos Quiroz [facility] DRUG (IMMUNOASSAY) - 4 ER Medica l Branch PANEL URINALYSIS 2020-08-21 10:09:00 Ramya, [facility] URINE CULTURE 2020-08-21 10:09:00 Fessenden, [facility] PROCALCITONIN 2020-08-21 10:09:00 Ramya, [facility] POCT GLUCOSE (AUTOMATED) 2020-08-21 09:41:00 Kelly Washington [facility] PROTHROMBIN TIME / INR 2020-08-21 08:32:00 Fessenden, [facility] ACTIVATED PARTIAL 2020-08-21 08:32:00 Fessenden, [facility] THRMPLAS [facility] C-REACTIVE PROTEIN 2020-08-21 08:31:00 Fessenden, [facility] HEPATIC FUNCTION PANEL 2020-08-21 08:31:00 Fessenden, [facility] ([id number]) (ALB,T.PRO,BILI Medical [place] T,BU/BC,ALT,AST,ALK PHOS) BASIC METABOLIC PANEL 2020-08-21 08:31:00 Ramya, [facility] (NA, K, CL, CO2, GLUCOSE, [facility] [place] BUN, CREATININE, CA) SEDIMENTATION RATE 2020-08-21 08:31:00 Fessenden, [facility] CBC WITH DIFF 2020-08-21 08:31:00 Ramya, [facility] GLYCOSYLATED HEMOGLOBIN 2020-08-21 08:31:00 Fessenden, [facility] (A1C) [facility] HIV 1/2 AG-AB WITH REFLEX 2020-08-21 08:31:00 Kelly Washington [facility] COVID-19 (ID NOW RAPID 2020-08-21 08:20:00 Fessenden, [facility] TESTING) Medical Branch LAB ONLY COVID 2020-08-21 08:20:00 Ramya, [facility] Encounters Start End Encounter Admission Attending Care Care Encounter Source Date/Time Date/Time Type Type Clinicians Facility Department ID 2020-08-21 Inpatient Shayy [facility] [id number] Univers 01:07:00 KELLY cantu [facility] 2021-08-22 2021-08-22 Emergency [facility] [id number] Univers 06:21:00 08:02:00 SWEETIE cantu [facility] 2021-08-22 2021-08-22 [facility] [id number] Univers 06:21:00 08:02:00 Sweetie OREN [id number] i ty of [place] [id number] [facility] 084 [place] 2021-08-09 2021-08-09 Outpatient ZAKI, [facility] [id number] [facility] 10:27:03 10:27:03 ADRIANA lopez of Medicin e 2020-12-28 2020-12-28 Telephone [facility] [id number] 00:00:00 00:00:00 Calvin H PRIMARY [id number] CARE 4.2.7.2.686 PAVILLION [id number] 2020-12-28 2020-12-28 Telephone [facility] 1.2.840.114 [id number] Univers 00:00:00 00:00:00 Calvin H PRIMARY [id number] it y of CARE 4.2.7.2.686 [facility] [id number] [place] dical 220 Branch 2020-12-19 2020-12-19 Transition Tuan Peters 1.2.840.114 [id number] 00:00:00 00:00:00 of Care Ruchi Braswell [id number] [place] 4.2.7.2.686 [id number] 2020-12-19 2020-12-19 Transition Tuan Peters 1.2.840.114 [id number] Univers 00:00:00 00:00:00 of Care Ruchi Braswell [id number] it y of [place] [id number] [facility] 403 Branch 2020-12-11 2020-12-17 [facility] Paco Lacey 1.2.840.1 [id number] 05:11:00 16:00:00 Encounter Rene Harrison Monique [id number] [facility] 4.2.7.2.686 [id number] [facility] 2020-12-11 2020-12-17 [facility] 1.2.840.1 [id number] [facility] 05:11:00 16:00:00 Encounter Rene Harrison [place] [id number] ity of [facility] 4.2.7.2.686 [place] [id number] [place] [address] [place] 2020-12-11 2020-12-11 Emergency X [facility] ERT [id number] Univers 05:11:00 05:11:00 [facility] 2020-11-16 2020-11-16 Emergency X [facility] ERT [id number] Univers 09:31:00 09:31:00 [facility] 2020-11-11 2020-11-11 Orders Doctor BASILIA 1.2.840.114 [id number] 00:00:00 00:00:00 Only Unassigned, MONIQUE [id number] [place] [facility] 4.2.7.2.686 [id number] 2020-11-11 2020-11-11 Orders Doctor BASILIA 1.2.840.114 [id number] Univers 00:00:00 00:00:00 Only Unassigned, MONIQUE [id number] ity of [place] [facility] 4.2.7.2.686 Jeff as [id number] [facility] 009 Branch 2020-11-07 2020-11-[address] [facility] [id number] 00:00:00 00:00:00 Angi Tobin 350.1.13.10 [place] 4.2.7.2.686 Professio [id number] [facility] 2020-11-07 2020-11-07 Telephone [facility] [id number] [facility] 00:00:00 00:00:00 Angi Tobin 350.1.13.10 ity of [place] Profess[place] [id number] [place] [id number] [facility] 2020-10-30 2020-10-30 Orders Doctor BASILIA 1.2.840.114 [id number] 00:00:00 00:00:00 Only Unassigned, MONIQUE 350.1.13.10 [place] [facility] 4.2.7.2.686 [id number] [facility] 2020-10-30 2020-10-30 Orders Doctor BASILIA 1.2.840.114 [id number] Univers 00:00:00 00:00:00 Only Unassigned, MONIQUE 350.1.13.10 ity of [place] [facility] 4.2.7.2.686 Jeff as [id number] [address] 2020-09-26 2020-09-26 [facility] 1.2.840.114 [id number] 00:00:00 00:00:00 [facility] 350.1.13.10 CLINICS 4.2.7.2.686 [id number] [facility] 2020-09-26 2020-09-26 Telephone [facility] 1.2.840.114 [id number] Univers 00:00:00 00:00:00 [facility] 350.1.13.10 i ty of CL[place] [id number] [address] 2020-09-01 2020-09-01 Orders Doctor BASILIA 1.2.840.114 [id number] 00:00:00 00:00:00 Only Unassigned, MONIQUE 350.1.13.10 [place] [facility] 4.2.7.2.686 [id number] 2020-09-01 2020-09-01 Orders Doctor CUI 1.2.840.114 [id number] Univers 00:00:00 00:00:00 Only Unassigned, MONIQUE 350.1.13.10 ity of [facility] 4.2.7.2.686 Jeff as [id number] [facility] 009 Branch 2020-08-25 2020-08-25 Transition Tuan Peters 1.2.840.114 [id number] 00:00:00 00:00:00 of Care Ruchi Braswell 350.1.13.10 [place] 4.2.7.[id number] [facility] 2020-08-25 2020-08-25 Transition Tuan Peters 1.2.840.114 [id number] [facility] 00:00:00 00:00:00 of Care Ruchi Garciay 350.1.13.10 it y of [place]2.[place] [id number] [place] [address] Branch 2020-08-21 2020-08-23 [facility] Ayleen 1.2.840.114 [id number] 01:07:00 18:35:00 Encounter Kelly Amaya 350.1.13.10 [facility] 4.2.7.2.686 [id number] [facility] 2020-08-21 2020-08-23 [facility] 1. 2.840.114 [id number] [facility] 01:07:00 18:35:00 Encounter Mukul Gallardo 350.1.13. 10 ity [facility] 4.2.7.2.686 Jeff as [id number] [address] Results Test Description Test Time Test Comments Results Result Comments Source POCT GLUCOSE (AUTOMATED) 2020-12-17 15:43:35 Test Item Value Reference Range Interpretation Comme nts POCT GLU (test code = 9924098697) 129 mg/dL 70-110 H Lab Interpretation (test code = 66979-0) Abnormal [facility] METABOLIC PANEL (NA, K, CL, CO2, GLUCOSE, BUN, CREATININE, CA)2020-12-17 11:45:07 Test Item Value Reference Range Interpretation Comments NA (test code = 137 mmol/L 135-145 8135885370) K (test code = 3.5 mmol/L 3.5-5.0 4495807850) CL (test code = 103 mmol/L 98-108 2068845944) CO2 TOTAL (test code = 26 mmol/L 23-31 9790069561) AGAP (test code = 2-16 1035789900) BUN (test code = 11 mg/dL 7-23 2465976957) GLUCOSE (test code = 175 mg/dL 70-110 H 1846165631) CREATININE (test code = 0.62 mg/dL 0.60-1.25 3613530726) CALCIUM (test code = 9.0 mg/dL 8.6-10.6 4683638953) eGFR Calculation mL/min/1.73m2 (Non-) (test code = 0328615812) eGFR Calculation mL/min/1.73m2 () (test code = 1278289971) JAMES (test code = JAMES) Association of [...] tests). Lab Interpretation Abnormal (test code = 92004-3) [facility] WITH [id number] 11:07:27 Test Item Value Reference Range Interpretation [...] RDW-SD (test code = 45.2 fL 38.5-51.6 82446-8) RDW-CV (test code = 16.9 % 12.1-15.4 H 788-0) PLT (test code = See_Comment H [Automated 777-3) message] The sy stem which generated this result transmitted reference range : 150 - 328 10*3/ ?L. The reference r torito was not used to interpret this result as normal/abnormal . MPV (test code = 8.1 fL 9.8-13.0 L 76677-6) NRBC/100 WBC (test See_Comment [Automat ed code = 7414350763) message] The system which generated this result transmitted reference range : 0.0 - 10.0 /100 WBCs. The refer ence range was not u sed to interpret th is result as normal/abnormal . NRBC x10^3 (test code <0.01 See_Comment [Auto mated = 8934018868) message] The s ystem which generated this result transmitted reference range : 10*3/?L. The reference range was not used to interpret this result as normal/abnormal . GRAN MAT (NEUT) % 72.8 % (test code = 770-8) IMM GRAN % (test code 0.60 % = 8864009800) LYMPH % (test code = 18.4 % 736-9) MONO % (test code = 5.7 % 5905-5) EOS % (test code = 1.8 % 713-8) BASO % (test code = 0.7 % 706-2) GRAN MAT x10^3(ANC) 8.23 10*3/uL 1.99-6.95 H (test code = 1097281245) IMM GRAN x10^3 (test 0.07 10*3/uL 0.00-0.06 H code = 6540992265) LYMPH x10^3 (test code 2.08 10*3/uL 1.09-3.23 = 731-0) MONO x10^3 (test code 0.65 10*3/uL 0.36-1.02 = 742-7) EOS x10^3 (test code = 0.20 10*3/uL 0.06-0.53 711-2) BASO x10^3 (test code 0.08 10*3/uL 0.01-0.09 = 704-7) Lab Interpretation Abnormal (test code = 05505-6) [facility] 06:03:38 Test Item Value Reference Range Interpretation Comments POCT GLU (test code = 8727523787) 75 mg/dL 70-110 Lab Interpretation (test code = Normal 44742-2) [facility] [id number] 00:01:00 Test Item Value Reference Range Interpretation Comments VIT B6 (test code = 13.1 nmol/L 20.0-125.0 L INTERPRE TIVE 10422-7) INFORMATION: Vi tamin B6 (Pyridoxal 5-Phosphate) Pyridoxal 5'-phosphate me asured in a specimen collected follo wing an 8-hour or overnight fast accurately clara cates vitamin B6 nutritional sta tus. Non-fasting spe cimen concentration reflects recent vitamin intake. This test was develo ped and its perform ance characteristics determined by A [facility]. I t has not been cleare d or approved by the [place] Food and Drug Administration. This test was perfor med in a CLIA certifie d laboratory and is intended for cl inical purposes.Perfor med By: Aligo[address] [place] [address] [id number] Director: Namrata Klein MD Lab Interpretation Abnormal (test code = 03954-9) [facility] 2 VW [id number] 23:57:09 Tricompartmental knee joint osteoarthrosis.XR TIBIA FIBULA [...] No acute fracture or dislocation.IMPRESSIONTricompartmental knee joint osteoarthrosis.[facility] GLUCOSE (AUTOMATED) 2020-12-16 23:27:00 Test Item Value Reference Range Interpretation Comments POCT GLU (test code = 4540979452) 114 mg/dL 70-110 H Lab Interpretation (test code = Abnormal 58687-9) [facility] GLUCOSE (AUTOMATED)2020-12-16 20:12:00 Test Item Value Reference Range Interpretation Comments POCT GLU (test code = 8764043853) 105 mg/dL 70-110 Lab Interpretation (test code = Normal 60690-4) [facility] GLUCOSE (AUTOMATED)2020-12-16 14:44:00 Test Item Value Reference Range Interpretation Comments POCT GLU (test code = 0421004282) 153 mg/dL 70-110 H Lab Interpretation (test code = Abnormal 19205-3) [facility] METABOLIC PANEL (NA, K, CL, CO2, GLUCOSE, BUN, CREATININE, CA)2020-12-16 14:23:00 Test Item Value Reference Range Interpretation Comments NA (test code = 138 mmol/L 135-145 1506076360) K (test code = 3.4 mmol/L 3.5-5.0 L 4210656799) CL (test code = 100 mmol/L 98-108 6147295719) CO2 TOTAL (test code = 31 mmol/L 23-31 5090731178) AGAP (test code = 2-16 1467080219) BUN (test code = 11 mg/dL 7-23 9982101692) GLUCOSE (test code = 162 mg/dL 70-110 H 0737544535) CREATININE (test code = 0.64 mg/dL 0.60-1.25 8742380426) CALCIUM (test code = 8.9 mg/dL 8.6-10.6 1444321813) eGFR Calculation mL/min/1.73m2 (Non-) (test code = 3676071802) eGFR Calculation mL/min/1.73m2 () (test code = 1445858987) JAMES (test code = JAMES) Association of [...] tests). Lab Interpretation Abnormal (test code = 26091-0) [facility] WITH [id number] 14:05:00 Test Item Value Reference Range Interpretation [...] RDW-SD (test code = 45.4 fL 38.5-51.6 28645-1) RDW-CV (test code = 17.0 % 12.1-15.4 H 788-0) PLT (test code = See_Comment H [Automated 777-3) message] The sy stem which generated this result transmitted reference range : 150 - 328 10*3/ ?L. The reference r torito was not used to interpret this result as normal/abnormal . MPV (test code = 8.0 fL 9.8-13.0 L 47681-5) NRBC/100 WBC (test See_Comment [Automat ed code = 9453155291) message] The system which generated this result transmitted reference range : 0.0 - 10.0 /100 WBCs. The refer ence range was not u sed to interpret th is result as normal/abnormal . NRBC x10^3 (test code <0.01 See_Comment [Auto mated = 9285762511) message] The s ystem which generated this result transmitted reference range : 10*3/?L. The reference range was not used to interpret this result as normal/abnormal . GRAN MAT (NEUT) % 70.0 % (test code = 770-8) IMM GRAN % (test code 0.70 % = 6738539692) LYMPH % (test code = 20.5 % 736-9) MONO % (test code = 7.1 % 5905-5) EOS % (test code = 1.0 % 713-8) BASO % (test code = 0.7 % 706-2) GRAN MAT x10^3(ANC) 9.44 10*3/uL 1.99-6.95 H (test code = 6879938697) IMM GRAN x10^3 (test 0.09 10*3/uL 0.00-0.06 H code = 7959381200) LYMPH x10^3 (test code 2.76 10*3/uL 1.09-3.23 = 731-0) MONO x10^3 (test code 0.96 10*3/uL 0.36-1.02 = 742-7) EOS x10^3 (test code = 0.13 10*3/uL 0.06-0.53 711-2) BASO x10^3 (test code 0.10 10*3/uL 0.01-0.09 H = 704-7) Lab Interpretation Abnormal (test code = 50133-6) [facility] - [facility] # [id number] 13:01:00 Test Item Value Reference Range Interpretation Comments Blood Culture-Aerobic No organisms No growth Previo us (test code = 78946-6) isolated prelim inary verified result was Culture In Progress on 12/11/2020 at 100 1 CSTPrevious preliminary verified result was No growth a t 24 hours on 12/12/2020 at 070 1 CSTPrevious preliminary verified result was No growth a t 48 hours on 12/13/2020 at 070 1 CSTPrevious preliminary verified result was No growth a t 72 hours on 12/14/2020 at 070 1 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 INSPECTOR Blood No organisms No growth Previous Culture-Anaerobic isolated preliminar y (test code = 60586-8) verifi ed result was Culture In Progress on 12/11/2020 at 100 1 CSTPrevious preliminary verified result was No growth a t 24 hours on 12/12/2020 at 070 1 CSTPrevious preliminary verified result was No growth a t 48 hours on 12/13/2020 at 070 1 CSTPrevious preliminary verified result was No growth a t 72 hours on 12/14/2020 at 070 1 CABLE INSPECTOR Lab Interpretation Normal (test code = 86934-9) [facility] Culture - Peripheral # [id number] 13:01:00 Test Item Value Reference Range Interpretation Comments Blood Culture-Aerobic No organisms No growth Previo us (test code = 26944-7) isolated prelim inary verified result was Culture In Progress on 12/11/2020 at 100 1 CSTPrevious preliminary verified result was No growth a t 24 hours on 12/12/2020 at 070 1 CSTPrevious preliminary verified result was No growth a t 48 hours on 12/13/2020 at 070 1 CSTPrevious preliminary verified result was No growth a t 72 hours on 12/14/2020 at 070 1 CABLE INSPECTOR Blood No organisms No growth Previous Culture-Anaerobic isolated preliminar y (test code = 70356-7) verifi ed result was Culture In Progress on 12/11/2020 at 100 1 CSTPrevious preliminary verified result was No growth a t 24 hours on 12/12/2020 at 070 1 CSTPrevious preliminary verified result was No growth a t 48 hours on 12/13/2020 at 070 1 CSTPrevious preliminary verified result was No growth a t 72 hours on 12/14/2020 at 070 1 CABLE INSPECTOR Lab Interpretation Normal (test code = 01714-6) [facility] GLUCOSE (AUTOMATED)2020-12-16 04:01:00 Test Item Value Reference Range Interpretation Comments POCT GLU (test code = 3032176583) 156 mg/dL 70-110 H Lab Interpretation (test code = Abnormal 04628-4) [facility] GLUCOSE (AUTOMATED)2020-12-16 00:24:00 Test Item Value Reference Range Interpretation Comments POCT GLU (test code = 3718395881) 115 mg/dL 70-110 H Lab Interpretation (test code = Abnormal 82742-7) [facility] CHEST PULMONARY [id number] 23:34:55No pulmonary emboli. No interval change in [...] of intra and extrahepatic biliary du ctal dilatation.[facility] 2020-12-15 19:28:00 Test Item Value Reference Range Interpretation Comments POCT GLU (test code = 8181782296) 140 mg/dL 70-110 H Lab Interpretation (test code = Abnormal 32298-2) [facility] 15:26:00 Test Item Value Reference Range Interpretation Comments MAGNESIUM (test code = 8914909298) 2.2 mg/dL 1.7-2.4 Lab Interpretation (test code = Normal 01490-4) [facility]2020-12-15 15:15:00 Test Item Value Reference Range Interpretation Comments POCT GLU (test code = 4214727000) 181 mg/dL 70-110 H Lab Interpretation (test code = Abnormal 27836-3) [facility] (NA, K, CL, CO2, GLUCOSE, BUN, CREATININE, CA)2020-12-15 13:07:00 Test Item Value Reference Range Interpretation Comments NA (test code = 136 mmol/L 135-145 0790439311) K (test code = 3.6 mmol/L 3.5-5.0 7817200251) CL (test code = 96 mmol/L 98-108 L 1841174011) CO2 TOTAL (test code = 29 mmol/L 23-31 0254273478) AGAP (test code = 2-16 4443429449) BUN (test code = 12 mg/dL 7-23 0495450554) GLUCOSE (test code = 183 mg/dL 70-110 H 2179014685) CREATININE (test code = 0.70 mg/dL 0.60-1.25 9893220099) CALCIUM (test code = 9.2 mg/dL 8.6-10.6 8389945545) eGFR Calculation mL/min/1.73m2 (Non-) (test code = 2738316380) eGFR Calculation mL/min/1.73m2 () (test code = 7653654020) JAMES (test code = JAMES) Association of [...] tests). Lab Interpretation Abnormal (test code = 04081-3) [facility] WITH [id number] 12:32:00 Test Item Value Reference Range Interpretation [...] RDW-SD (test code = 44.4 fL 38.5-51.6 90554-5) RDW-CV (test code = 17.7 % 12.1-15.4 H 788-0) PLT (test code = See_Comment H [Automated 777-3) message] The system which generated this result transmit ronan reference range : 150 - 328 10*3/ ?L. The reference range was not u sed to interpret th is result as normal/abnormal . MPV (test code = 8.1 fL 9.8-13.0 L 03924-2) NRBC/100 WBC (test See_Comment [Automat ed code = 6014406894) message] The system which generated this result transmit ronan reference range : 0.0 - 10.0 /100 WBCs. The reference range was not used to interpret this result as normal/abnormal . NRBC x10^3 (test code <0.01 See_Comment [Auto mated = 6894411914) message] The system which generated this result transmit ronan reference range : 10*3/?L. The reference range was not used to interpret this result as normal/abnormal . GRAN MAT (NEUT) % 74.5 % (test code = 770-8) IMM GRAN % (test code 0.70 % = 8212455735) LYMPH % (test code = 17.4 % 736-9) MONO % (test code = 6.8 % 5905-5) EOS % (test code = 0.2 % 713-8) BASO % (test code = 0.4 % 706-2) GRAN MAT x10^3(ANC) 11.99 10*3/uL 1.99-6.95 H (test code = 8562743477) IMM GRAN x10^3 (test 0.11 10*3/uL 0.00-0.06 H code = 4105108775) LYMPH x10^3 (test code 2.80 10*3/uL 1.09-3.23 = 731-0) MONO x10^3 (test code 1.10 10*3/uL 0.36-1.02 H = 742-7) EOS x10^3 (test code = 0.03 10*3/uL 0.06-0.53 L 711-2) BASO x10^3 (test code 0.06 10*3/uL 0.01-0.09 = 704-7) Lab Interpretation Abnormal (test code = 75948-8) [facility] GLUCOSE (AUTOMATED)2020-12-15 04:16:00 Test Item Value Reference Range Interpretation Comments POCT GLU (test code = 0750325581) 200 mg/dL 70-110 H Lab Interpretation (test code = Abnormal 97356-0) [facility] (THIAMINE), WHOLE [id number] 00:30:00 Test Item Value Reference Range Interpretation Comments Vitamin B1, Whole 136 nmol/L 70-180 INTERPRETI VE INFORMATION: Blood (test code = Vitamin B 1, Whole Blood 69206-6) This assay júnior ures the concentration o f thiamine diphosphate (TD P), the primary active form of vitamin B1. Nick roximately 90 percent of v itamin B1 present in whol e blood is TDP. Thiamine a nd thiamine monoph osphate, which comprise the remaining 10 pe rcent, are not measured. T his test was developed a nd its performance characteristics determined by A [facility]. I t has not been cleared or approved by the [place] Food and Drug Administration. This test was performed i n a CLIA certified labor atory and is intended for clinical purposes.Perfor med By: [facility] [place] [address] [id number] aboratory Director: Namrata Klein MD [facility] GLUCOSE (AUTOMATED)2020-12-14 23:35:00 Test Item Value Reference Range Interpretation Comments POCT GLU (test code = 6431133122) 151 mg/dL 70-110 H Lab Interpretation (test code = Abnormal 55936-4) [facility] GLUCOSE (AUTOMATED)2020-12-14 19:19:00 Test Item Value Reference Range Interpretation Comments POCT GLU (test code = 4923088452) 193 mg/dL 70-110 H Lab Interpretation (test code = Abnormal 38435-1) [facility] GLUCOSE (AUTOMATED)2020-12-14 15:22:00 Test Item Value Reference Range Interpretation Comments POCT GLU (test code = 1185956989) 221 mg/dL 70-110 H Lab Interpretation (test code = Abnormal 42042-6) [facility] GLUCOSE (AUTOMATED)2020-12-14 02:37:00 Test Item Value Reference Range Interpretation Comments POCT GLU (test code = 6996540153) 210 mg/dL 70-110 H Lab Interpretation (test code = Abnormal 62981-0) [facility] GLUCOSE (AUTOMATED)2020-12-13 23:33:00 Test Item Value Reference Range Interpretation Comments POCT GLU (test code = 2666991462) 182 mg/dL 70-110 H Lab Interpretation (test code = Abnormal 76045-3) [facility] GLUCOSE (AUTOMATED)2020-12-13 18:09:00 Test Item Value Reference Range Interpretation Comments POCT GLU (test code = 6697504152) 150 mg/dL 70-110 H Lab Interpretation (test code = Abnormal 21784-8) [facility] METABOLIC PANEL (NA, K, CL, CO2, GLUCOSE, BUN, CREATININE, CA)2020-12-13 16:27:00 Test Item Value Reference Range Interpretation Comments NA (test code = 136 mmol/L 135-145 2625810895) K (test code = 3.7 mmol/L 3.5-5.0 3984063222) CL (test code = 96 mmol/L 98-108 L 3983774078) CO2 TOTAL (test code = 29 mmol/L 23-31 9610592792) AGAP (test code = 2-16 0771540814) BUN (test code = 6 mg/dL 7-23 L 2198528154) GLUCOSE (test code = 212 mg/dL 70-110 H 7231168247) CREATININE (test code = 0.61 mg/dL 0.60-1.25 5987371643) CALCIUM (test code = 9.5 mg/dL 8.6-10.6 2987868240) eGFR Calculation mL/min/1.73m2 (Non-) (test code = 8684202968) eGFR Calculation mL/min/1.73m2 () (test code = 4382321411) JAMES (test code = JAMES) Association of [...] tests). Lab Interpretation Abnormal (test code = 92617-2) [facility] WITH [id number] 16:10:00 Test Item Value Reference Range Interpretation Comments WBC (test code = See_Comment H [Automated 7390-2) message] The sy stem which generated this result transmitted reference range : 4.20 - 10.70 10*3/?L. The reference range was not used to interpret this result as normal/abnormal . RBC (test code = See_Comment H [Automated 389-8) message] The sy stem which generated this [...] RDW-SD (test code = 43.3 fL 38.5-51.6 02095-3) RDW-CV (test code = 16.2 % 12.1-15.4 H 788-0) PLT (test code = See_Comment H [Automated 777-3) message] The sy stem which generated this result transmitted reference range : 150 - 328 10*3/ ?L. The reference r torito was not used to interpret this result as normal/abnormal . MPV (test code = 8.2 fL 9.8-13.0 L 06419-5) NRBC/100 WBC (test See_Comment [Automat ed code = 4177648194) message] The system which generated this result transmitted reference range : 0.0 - 10.0 /100 WBCs. The refer ence range was not u sed to interpret th is result as normal/abnormal . NRBC x10^3 (test code <0.01 See_Comment [Auto mated = 1643119317) message] The s ystem which generated this result transmitted reference range : 10*3/?L. The reference range was not used to interpret this result as normal/abnormal . GRAN MAT (NEUT) % 86.2 % (test code = 770-8) IMM GRAN % (test code 0.70 % = 1970511952) LYMPH % (test code = 10.2 % 736-9) MONO % (test code = 2.5 % 5905-5) EOS % (test code = 0.1 % 713-8) BASO % (test code = 0.3 % 706-2) GRAN MAT x10^3(ANC) 9.61 10*3/uL 1.99-6.95 H (test code = 3564559924) IMM GRAN x10^3 (test 0.08 10*3/uL 0.00-0.06 H code = 4758544624) LYMPH x10^3 (test code 1.14 10*3/uL 1.09-3.23 = 731-0) MONO x10^3 (test code 0.28 10*3/uL 0.36-1.02 L = 742-7) EOS x10^3 (test code = <0.03 0.06-0.53 L 711-2) BASO x10^3 (test code 0.03 10*3/uL 0.01-0.09 = 704-7) Lab Interpretation Abnormal (test code = 63542-8) [facility] 14:16:00 Test Item Value Reference Range Interpretation Comments POCT GLU (test code = 9744400137) 236 mg/dL 70-110 H Lab Interpretation (test code = Abnormal 59369-4) [facility] COVID [id number] 04:58:00COVID DMT InterpretationInterpretation/Recommendations: Molecular NAAT Tests for [...] [facility] SERVICESCOVID Resu awfJYXF-WcW-9 Rapid ID NOW (no units) ? ? Date ? Value ? 12/11/2020 ? Not Detected ? ? ? 11/16/2020 ? Not Detected ? ? ? 08/21/2020 ?Not Detected ? [facility] SERVICESUnHow[facility] 2020-12-13 03:11:00 Test Item Value Reference Range Interpretation Comments POCT GLU (test code = 1334785293) 171 mg/dL 70-110 H Lab Interpretation (test code = Abnormal 69363-2) [facility] GLUCOSE (AUTOMATED)2020-12-13 00:00:00 Test Item Value Reference Range Interpretation Comments POCT GLU (test code = 3103514983) 118 mg/dL 70-110 H Lab Interpretation (test code = Abnormal 75061-9) [facility] GLUCOSE (AUTOMATED)2020-12-12 20:29:00 Test Item Value Reference Range Interpretation Comments POCT GLU (test code = 7923342546) 173 mg/dL 70-110 H Lab Interpretation (test code = Abnormal 05286-1) [facility] [id number] 19:56:17 1. ?Hepatic steatosis. However, limited evaluation [...] main portal veinwasevaluated with color Doppler imaging. Bilingual Teacher Assistant images were obtainedfor the record. COMPARISON: Ultrasound [...] normal where visualized. SPLEEN:No images were obtained. Rust, Radiant Results Inft User - 12/12/2020 1:57 PM CSTEXAM: US ABDOMEN LIMITEDHISTORY: 70 years-old male with RUQ ultrasound to assess for common bileduct dilation .TECHNIQUE: Limited abdominal ultrasound focused on the liver, biliarysystem, pancreas, and spleen was performed. The main portal vein wasevaluated with color Doppler imaging. Bilingual Teacher Assistant images were obtainedfor the record.COMPARISON: Ultrasound abdomen [...] this study and agree with the abovereport. [facility]2020-12-12 19:24:00 Test Item Value Reference Range Interpretation Comments POCT GLU (test code = 5643673153) 230 mg/dL 70-110 H Lab Interpretation (test code = Abnormal 64352-0) [facility] CHEST 1 [id number] 15:16:46 Low lung volumes with mild perihilar [...] have reviewed thisstudy and agree with theabove report.[facility]2020-12-12 14:34:00 Test Item Value Reference Range Interpretation Comments POCT GLU (test code = 5103292940) 225 mg/dL 70-110 H Lab Interpretation (test code = Abnormal 93045-4) [facility]URINE [id number] 13:28:00 Test Item Value Reference Range Interpretation Comments URINE CULTURE (test < 10,000 CFU/mL mixed code = 630-4) aerobic organisms - suggests endogenous microbial contamination [facility] (NA, K, CL, CO2, GLUCOSE, BUN, CREATININE, CA)2020-12-12 10:05:00 Test Item Value Reference Range Interpretation Comments NA (test code = 136 mmol/L 135-145 3846824051) K (test code = 3.5 mmol/L 3.5-5.0 4447986797) CL (test code = 100 mmol/L 98-108 2819288727) CO2 TOTAL (test code = 31 mmol/L 23-31 0176754760) AGAP (test code = 2-16 2117432508) BUN (test code = 7 mg/dL 7-23 4564259428) GLUCOSE (test code = 259 mg/dL 70-110 H 4807830954) CREATININE (test code = 0.63 mg/dL 0.60-1.25 0019757749) CALCIUM (test code = 8.5 mg/dL 8.6-10.6 L 1717398723) eGFR Calculation mL/min/1.73m2 (Non-) (test code = 0715686014) eGFR Calculation mL/min/1.73m2 () (test code = 4430444702) JAMES (test code = JAMES) Association of [...] tests). Lab Interpretation Abnormal (test code = 65595-6) [facility] HospitalMagnesium [id number] 10:05:00 Test Item Value Reference Range Interpretation Comments MAGNESIUM (test code = 4440518931) 1.9 mg/dL 1.7-2.4 Lab Interpretation (test code = Normal 93505-1) [facility] with Lwfeuymggblc9367-20-95 09:48:00 Test Item Value Reference Range Interpretation Comments WBC (test code = See_Comment [Automated 7562-2) message] The sy stem which generated this result transmitted reference range : 4.20 - 10.70 10*3/?L. The reference range was not used to interpret this result as normal/abnormal . RBC (test code = See_Comment [Automated 706-8) message] The sy stem which generated this [...] RDW-SD (test code = 46.0 fL 38.5-51.6 47692-7) RDW-CV (test code = 16.1 % 12.1-15.4 H 788-0) PLT (test code = See_Comment H [Automated 777-3) message] The sy stem which generated this result transmitted reference range : 150 - 328 10*3/ ?L. The reference r torito was not used to interpret this result as normal/abnormal . MPV (test code = 8.6 fL 9.8-13.0 L 33371-8) NRBC/100 WBC (test See_Comment [Automat ed code = 5692166820) message] The system which generated this result transmitted reference range : 0.0 - 10.0 /100 WBCs. The refer ence range was not u sed to interpret th is result as normal/abnormal . NRBC x10^3 (test code <0.01 See_Comment [Auto mated = 5394091599) message] The s ystem which generated this result transmitted reference range : 10*3/?L. The reference range was not used to interpret this result as normal/abnormal . GRAN MAT (NEUT) % 70.2 % (test code = 770-8) IMM GRAN % (test code 0.30 % = 5311562829) LYMPH % (test code = 18.8 % 736-9) MONO % (test code = 5.0 % 5905-5) EOS % (test code = 5.2 % 713-8) BASO % (test code = 0.5 % 706-2) GRAN MAT x10^3(ANC) 6.05 10*3/uL 1.99-6.95 (test code = 7402926257) IMM GRAN x10^3 (test 0.03 10*3/uL 0.00-0.06 code = 5595645973) LYMPH x10^3 (test code 1.62 10*3/uL 1.09-3.23 = 731-0) MONO x10^3 (test code 0.43 10*3/uL 0.36-1.02 = 742-7) EOS x10^3 (test code = 0.45 10*3/uL 0.06-0.53 711-2) BASO x10^3 (test code 0.04 10*3/uL 0.01-0.09 = 704-7) Lab Interpretation Abnormal (test code = 37224-0) [facility] GLUCOSE (AUTOMATED)2020-12-12 03:42:00 Test Item Value Reference Range Interpretation Comments POCT GLU (test code = 196 mg/dL 70-110 H Notifi ed Provider 3366003960) Lab Interpretation (test Abnormal code = 40995-0) [facility] 02:24:00 Test Item Value Reference Range Interpretation Comments FOLATE SER (test code = 0766180487) 5.8 ng/mL 3.0-20.0 Lab Interpretation (test code = Normal 69847-3) [facility]VIT[facility]IN B12, [id number] 00:55:00 Test Item Value Reference Range Interpretation Comments VIT B12 (test code = 844 pg/mL 240-930 5268353176) JAMES (test code = JAEMS) Biotin has been reported to cause a positive bias, interpret results relative to patient's use of biotin. Lab Interpretation (test Normal code = 34094-9) [facility] GLUCOSE (AUTOMATED)2020-12-12 00:14:00 Test Item Value Reference Range Interpretation Comments POCT GLU (test code = 4863820224) 164 mg/dL 70-110 H Lab Interpretation (test code = Abnormal 76938-0) [facility] HospitalCREATINE [id number] 23:42:00 Test Item Value Reference Range Interpretation Comments CK (test code = 9814205111) <20 33-194 L Lab Interpretation (test code = Abnormal 38721-9) [facility] HospitalTHYROID STIMULATING [id number] 23:17:00 Test Item Value Reference Range Interpretation Comments TSH (test code = See_Comment Biotin has been 1376333652) reported to cau se a negative bias, interpret resul ts relative to pat ient's use of biotin. [Automated mess age] The system whic h generated this result transmitted ref erence range: 0.45 - 4 .70 mIU/L. The refe rence range was not u sed to interpret this result as normal/abnor mal. Lab Interpretation (test Normal code = 66999-0) [facility]XR HIPS 3 VW [id number] 21:41:53No appreciable fracture lines. RL: 6200 ICAL [...] No osseous erosions.IMPRESSIONNo appreciable fracture lines.RL: 6200 [facility] CenterPROCALCITONIN2021-03-01 20:00:00 Test Item Value Reference Range Interpretation Comments Procalcitonin (test 0.13 ng/mL <0.07 H code = 0367979201) JAMES (test code = JAMES) INTERPRETATION OF [...] lung abscess/empyema. For further information please refer to:[email or web address] Lab Interpretation Abnormal (test code = 87844-0) [facility]2020-12-11 19:07:00 Test Item Value Reference Range Interpretation Comments POCT GLU (test code = 1674601838) 274 mg/dL 70-110 H Lab Interpretation (test code = Abnormal 14679-2) [facility]2021-[facility]-01 18:31:00 Test Item Value Reference Range Interpretation Comments MAGNESIUM (test code = 6853663006) 1.9 mg/dL 1.7-2.4 Lab Interpretation (test code = Normal 07585-8) [facility] HospitalFERRITIN [id number] 18:31:00 Test Item Value Reference Range Interpretation Comments FERRITIN (test code = 178.0 ng/mL 18.0-464.0 5926839093) JAMES (test code = JAMES) Biotin has been reported to cause a negative bias, interpret results relative to patient's use of biotin. Lab Interpretation (test Normal code = 13607-8) [facility] HospitalCT HEAD WO [id number] 14:36:47 No acute intracranial abnormality. Dilated ventricles out of proportion to the caliber of sulci with diffuseproportional enlargement of the subarachnoid spaces, nonspecific findingmay represent central predominant volume loss, however, normal pressurehydrocephalus can potentially have similar appearance in the appropriateclinical setting. Preliminary Report Dictated by Resident: Roxane Wilson I, Katelyn Maritn MD., have reviewed this study and agree [...] reviewed this study and agree with the abovereport.[facility]IS[facility] 14:28:00 Test Item Value Reference Range Interpretation Comments APPEARANCE (test code = Clear Clear 4336875237) COLOR (test code = Yellow Yellow 5559888574) PH (test code = 4.8-8.0 6102860467) SP GRAVITY (test code = 1.003-1.030 2791715418) GLU U QUAL (test code = 500 mg/dL Normal A 1231373099) BLOOD (test code = Negative Negative 2284751636) KETONES (test code = 5 mg/dL Negative A 4274493537) PROTEIN (test code = Negative Negative 2887-8) UROBILIN (test code = Normal Normal 8244685494) BILIRUBIN (test code = Negative Negative 3727455498) NITRITE (test code = Negative Negative 4297603890) LEUK RYAN (test code = Negative Negative 0380107822) RBC/HPF (test code = See_Comment [Autom ated message] 5412612934) The system [employer] generated this result transmit ronan reference range : 0 - 3 HPF. The refe rence range was not u sed to interpret th is result as normal/abnormal . WBC/HPF (test code = See_Comment [Autom ated message] 1548358082) The system [employer] generated this result transmit ronan reference range : 0 - 5 HPF. The refe rence range was not u sed to interpret th is result as normal/abnormal . BACTERIA (test code = Negative Negative 6194095877) MUCOUS (test code = Slight Negative LPF A 8622688152) SQ EPITH (test code = HPF 0567919134) Lab Interpretation (test Abnormal code = 24602-3) [facility] ([facility] NOW RAPID TESTING)2020-12-11 13:10:00 Test Item Value Reference Range Interpretation Comments SARS-CoV-2 Rapid ID NOW Not Detected Not Detected (test code = 88325-8) JAMES (test code = JAMES) ID NOW COVID-19 Assay is an isothermal nucleic acid amplification test intended for the qualitative detection of nucleic acid from SARS-CoV-2 viral RNA in nasopharyngeal (CONSTRUCTION GRIP) specimens. It is used under Emergency Use [...] indicated. Lab Interpretation Normal (test code = 88598-3) [facility]COMP. METABOLIC PANEL (74309)2020-12-11 12:29:00 Test Item Value Reference Range Interpretation Comments NA (test code = 136 mmol/L 135-145 6455117502) K (test code = 3.5 mmol/L 3.5-5.0 9924286676) CL (test code = 95 mmol/L 98-108 L 4025224605) CO2 TOTAL (test code = 35 mmol/L 23-31 H 2571447277) AGAP (test code = 2-16 3026846429) BUN (test code = 9 mg/dL 7-23 8178157158) GLUCOSE (test code = 329 mg/dL 70-110 H 9075062125) CREATININE (test code = 0.72 mg/dL 0.60-1.25 5705677456) TOTAL BILI (test code = 0.6 mg/dL 0.1-1.3 3995410424) CALCIUM (test code = 9.0 mg/dL 8.6-10.6 2072184915) T PROTEIN (test code = 6.8 g/dL 6.3-8.2 7224013134) ALBUMIN (test code = 3.8 g/dL 3.5-5.0 0375795189) ALK PHOS (test code = 288 U/L 34-122 H 4168138188) ALTv (test code = 46 U/L -50 1741-6) AST(SGOT) (test code = 38 U/L 13-40 3773905668) eGFR Calculation mL/min/1.73m2 (Non-) (test code = 5874403724) eGFR Calculation mL/min/1.73m2 () (test code = 0904803854) JAMES (test code = JAMES) Association of [...] tests). Lab Interpretation Abnormal (test code = 62116-7) [facility] HospitalLactic Acid Whole [id number] 12:23:00 Test Item Value Reference Range Interpretation Comments LACTIC ACID (test code = 2.09 mmol/L 0.50-2.20 6138555953) Lab Interpretation (test code = Normal 26757-2) [facility]CB WITH [id number] 12:17:00 Test Item Value Reference Range Interpretation [...] RDW-SD (test code = 44.9 fL 38.5-51.6 98479-9) RDW-CV (test code = 15.9 % 12.1-15.4 H 788-0) PLT (test code = See_Comment H [Automated 777-3) message] The sy stem which generated this result transmitted reference range : 150 - 328 10*3/ ?L. The reference r torito was not used to interpret this result as normal/abnormal . MPV (test code = 8.3 fL 9.8-13.0 L 54956-4) NRBC/100 WBC (test See_Comment [Automat ed code = 8388764865) message] The system which generated this result transmitted reference range : 0.0 - 10.0 /100 WBCs. The refer ence range was not u sed to interpret th is result as normal/abnormal . NRBC x10^3 (test code <0.01 See_Comment [Auto mated = 9039879717) message] The s ystem which generated this result transmitted reference range : 10*3/?L. The reference range was not used to interpret this result as normal/abnormal . GRAN MAT (NEUT) % 77.9 % (test code = 770-8) IMM GRAN % (test code 0.50 % = 7593916648) LYMPH % (test code = 12.2 % 736-9) MONO % (test code = 5.2 % 5905-5) EOS % (test code = 3.7 % 713-8) BASO % (test code = 0.5 % 706-2) GRAN MAT x10^3(ANC) 9.57 10*3/uL 1.99-6.95 H (test code = 4259690360) IMM GRAN x10^3 (test 0.06 10*3/uL 0.00-0.06 code = 1306773904) LYMPH x10^3 (test code 1.50 10*3/uL 1.09-3.23 = 731-0) MONO x10^3 (test code 0.64 10*3/uL 0.36-1.02 = 742-7) EOS x10^3 (test code = 0.46 10*3/uL 0.06-0.53 711-2) BASO x10^3 (test code 0.06 10*3/uL 0.01-0.09 = 704-7) Lab Interpretation Abnormal (test code = 70863-7) [facility]LAB ONLY COVID [id number] 18:43:00COVID DMT InterpretationInterpretation/Recommendations: Molecular NAAT Test Results [...] a nasopharyngeal sample, there is approximately a djf-vo-yyhbx chance that the patient was infected and [...] based upon aggregate data pooled from the [facility] medical record including both current and prior COVID-19 related testing results for the following tests offered at our institution:A. Tests for the Identification of SARS-CoV-2 RNA:SARS-CoV-2 PCR assays including [place] Aptima, [place] Fusion, Barrett RealTime, and [place] Graph[place] Xpert Xpress. SARS-CoV-2 Rapid ID NOW by the ID NOW assay. ? B. Tests for the Identification of SARS-CoV-2 Antibodies: Chemiluminescent immunoassays including Access SARS-CoV-2 IgM (DXI 600), [employer] Dzdm-AEXI-CeZ-2 IgG (Vitros 5600 and Vitros 3600), and Barrett SARS-CoV-2 IgG (CAR MOVER I System). These interpretation comments assume that only the above testing was utilized and that the approved acceptable specimen type(s) were used for a given test. These interpretations are autopopulated into [employer] based on computerized algorithms matching an interpretation [...] [facility] SERVICESCOVID SdfojmtACVN-OcI-2 Rapid ID NOW (no units) ? ? Date ? Value ? 08/21/2020 ? Not Detected ? [facility] SERVICESUnHoward [facility]2020-08-23 18:25:00 Test Item Value Reference Range Interpretation Comments POCT GLU (test code = 8275550674) 297 mg/dL 70-110 H Lab Interpretation (test code = Abnormal 66345-7) [facility] GLUCOSE (AUTOMATED)2020-08-23 14:25:00 Test Item Value Reference Range Interpretation Comments POCT GLU (test code = 8467570496) 181 mg/dL 70-110 H Lab Interpretation (test code = Abnormal 30912-5) [facility] HospitalBasi Metabolic Panel (NA, K, CL, CO2, GLUCOSE, BUN, CREATININE, CA)2020-08-23 11:45:00 Test Item Value Reference Range Interpretation Comments NA (test code = 132 mmol/L 135-145 L 8058510662) K (test code = 4.0 mmol/L 3.5-5 2220241256) CL (test code = 96 mmol/L 98-108 L 1950680449) CO2 TOTAL (test code = 33 mmol/L 23-31 H 6887685697) AGAP (test code = 2-16 4235904469) BUN (test code = 9 mg/dL 7-23 4654764519) GLUCOSE (test code = 176 mg/dL 70-110 H 4518566871) CREATININE (test code = 0.66 mg/dL 0.6-1.25 2101810744) CALCIUM (test code = 8.5 mg/dL 8.6-10.6 L 0054001147) eGFR Calculation mL/min/1.73m2 (Non-) (test code = 6553091096) eGFR Calculation mL/min/1.73m2 () (test code = 4160520946) JAMES (test code = JAMES) Association of [...] tests). Lab Interpretation Abnormal (test code = 91406-4) [facility] HospitalMagnesium [id number] 11:45:00 Test Item Value Reference Range Interpretation Comments MAGNESIUM (test code = 7781905601) 2.0 mg/dL 1.7-2.4 Lab Interpretation (test code = Normal 53907-1) [facility]CB with Vtvwzvqlbdvl2485-92-18 11:38:00 Test Item Value Reference Range Interpretation [...] RDW-SD (test code = 41.8 fL 38.5-51.6 29493-1) RDW-CV (test code = 14.3 % 12.1-15.4 788-0) PLT (test code = See_Comment H [Automated 777-3) message] The sy stem which generated this result transmitted reference range : 150 - 328 10*3/ ?L. The reference r torito was not used to interpret this result as normal/abnormal . MPV (test code = 8.0 fL 9.8-13 L 33349-8) NRBC/100 WBC (test See_Comment [Automat ed code = 8760825439) message] The system which generated this result transmitted reference range : 0.0 - 10.0 /100 WBCs. The refer ence range was not u sed to interpret th is result as normal/abnormal . NRBC x10^3 (test code <0.01 See_Comment [Auto mated = 2691708890) message] The s ystem which generated this result transmitted reference range : 10*3/?L. The reference range was not used to interpret this result as normal/abnormal . GRAN MAT (NEUT) % 61.5 % (test code = 770-8) IMM GRAN % (test code 2.00 % = 9130676425) LYMPH % (test code = 25.5 % 736-9) MONO % (test code = 6.3 % 5905-5) EOS % (test code = 3.7 % 713-8) BASO % (test code = 1.0 % 706-2) GRAN MAT x10^3(ANC) 5.29 10*3/uL 1.99-6.95 (test code = 4289585673) IMM GRAN x10^3 (test 0.17 10*3/uL 0-0.06 H code = 2160363293) LYMPH x10^3 (test code 2.19 10*3/uL 1.09-3.23 = 731-0) MONO x10^3 (test code 0.54 10*3/uL 0.36-1.02 = 742-7) EOS x10^3 (test code = 0.32 10*3/uL 0.06-0.53 711-2) BASO x10^3 (test code 0.09 10*3/uL 0.01-0.09 = 704-7) Lab Interpretation Abnormal (test code = 81438-6) [facility] GLUCOSE (AUTOMATED)2020-08-23 10:22:00 Test Item Value Reference Range Interpretation Comments POCT GLU (test code = 6445682150) 164 mg/dL 70-110 H Lab Interpretation (test code = Abnormal 72598-7) [facility] GLUCOSE (AUTOMATED)2020-08-23 05:56:00 Test Item Value Reference Range Interpretation Comments POCT GLU (test code = 2634848409) 242 mg/dL 70-110 H Lab Interpretation (test code = Abnormal 86099-2) [facility] GLUCOSE (AUTOMATED)2020-08-23 03:02:00 Test Item Value Reference Range Interpretation Comments POCT GLU (test code = 7405069954) 210 mg/dL 70-110 H Lab Interpretation (test code = Abnormal 33210-3) [facility] GLUCOSE (AUTOMATED)2020-08-22 23:40:00 Test Item Value Reference Range Interpretation Comments POCT GLU (test code = 7092032966) 267 mg/dL 70-110 H Lab Interpretation (test code = Abnormal 88545-8) [facility] GLUCOSE (AUTOMATED)2020-08-22 19:08:00 Test Item Value Reference Range Interpretation Comments POCT GLU (test code = 0549753684) 191 mg/dL 70-110 H Lab Interpretation (test code = Abnormal 90775-1) [facility] GLUCOSE (AUTOMATED)2020-08-22 13:50:00 Test Item Value Reference Range Interpretation Comments POCT GLU (test code = 2657120361) 174 mg/dL 70-110 H Lab Interpretation (test code = Abnormal 83846-2) [facility] HospitalURINE [id number] 12:59:00 Test Item Value Reference Range Interpretation Comments URINE CULTURE (test No aerobic growth (< code = 630-4) 1000 CFU/mL) [facility] with Ervqpyxlpgwj3052-61-87 11:28:00 Test Item Value Reference Range Interpretation Comments WBC (test code = See_Comment [Automated 6690-2) message] The sy stem which generated this result transmitted reference range : 4.20 - 10.70 10*3/?L. The reference range was not used to interpret this result as normal/abnormal . RBC (test code = See_Comment L [Automated 409-8) message] The sy stem which [...] RDW-SD (test code = 42.5 fL 38.5-51.6 76974-9) RDW-CV (test code = 14.5 % 12.1-15.4 788-0) PLT (test code = See_Comment H [Automated 777-3) message] The sy stem which generated this result transmitted reference range : 150 - 328 10*3/ ?L. The reference r torito was not used to interpret this result as normal/abnormal . MPV (test code = 8.0 fL 9.8-13 L 55609-9) NRBC/100 WBC (test See_Comment [Automat ed code = 4201944147) message] The system which generated this result transmitted reference range : 0.0 - 10.0 /100 WBCs. The refer ence range was not u sed to interpret th is result as normal/abnormal . NRBC x10^3 (test code <0.01 See_Comment [Auto mated = 6440412595) message] The s ystem which generated this result transmitted reference range : 10*3/?L. The reference range was not used to interpret this result as normal/abnormal . GRAN MAT (NEUT) % 69.1 % (test code = 770-8) IMM GRAN % (test code 2.20 % = 1693891559) LYMPH % (test code = 20.9 % 736-9) MONO % (test code = 5.8 % 5905-5) EOS % (test code = 1.0 % 713-8) BASO % (test code = 1.0 % 706-2) GRAN MAT x10^3(ANC) 6.51 10*3/uL 1.99-6.95 (test code = 8462904718) IMM GRAN x10^3 (test 0.21 10*3/uL 0-0.06 H code = 6265634902) LYMPH x10^3 (test code 1.97 10*3/uL 1.09-3.23 = 731-0) MONO x10^3 (test code 0.55 10*3/uL 0.36-1.02 = 742-7) EOS x10^3 (test code = 0.09 10*3/uL 0.06-0.53 711-2) BASO x10^3 (test code 0.09 10*3/uL 0.01-0.09 = 704-7) BASO STIPPLING (test Present A code = 703-9) BANDS (test code = Increased A 2459338489) TOXIC CHANGES (test Present A code = 803-7) Lab Interpretation Abnormal (test code = 35122-6) [facility] Metabolic Panel (NA, K, CL, CO2, GLUCOSE, BUN, CREATININE, CA)2020-08-22 11:12:00 Test Item Value Reference Range Interpretation Comments NA (test code = 135 mmol/L 135-145 2249196419) K (test code = 3.6 mmol/L 3.5-5 9642942266) CL (test code = 99 mmol/L 98-108 9967409890) CO2 TOTAL (test code = 31 mmol/L 23-31 6511837637) AGAP (test code = 2-16 5317890516) BUN (test code = 9 mg/dL 7-23 7523695795) GLUCOSE (test code = 198 mg/dL 70-110 H 9310335823) CREATININE (test code = 0.72 mg/dL 0.6-1.25 0375446299) CALCIUM (test code = 8.3 mg/dL 8.6-10.6 L 4563218193) eGFR Calculation mL/min/1.73m2 (Non-) (test code = 5061975726) eGFR Calculation mL/min/1.73m2 () (test code = 4482432537) JAMES (test code = JAMES) Association of [...] tests). Lab Interpretation Abnormal (test code = 00973-7) [facility] HospitalMagnesium [id number] 11:12:00 Test Item Value Reference Range Interpretation Comments MAGNESIUM (test code = 0933690726) 2.0 mg/dL 1.7-2.4 Lab Interpretation (test code = Normal 04688-0) [facility] HospitalLipid Panel (Total Cholesterol, Triglycerides, HDL) - [id number] 11:12:00 Test Item Value Reference Range Interpretation Comments CHOL (test code = 155 mg/dL 120-200 2952831640) HDL (test code = 42 mg/dL >40 4363430571) HDLC RATIO (test code = See_Comment [Au tomated message] 5182441588) The system [employer] generated this result transmit ronan reference range : <=5.0. The refe rence range was not u sed to interpret th is result as normal/abnormal . TRIG (test code = 186 mg/dL 30-170 H 6808299454) LDL CHOL (test code = 76 mg/dL See_Comment [Auto mated message] 40678-9) The system [employer] generated this result transmit ronan reference range : <=160. The refe rence range was not u sed to interpret th is result as normal/abnormal . VLDL (test code = 37 mg/dL 5-60 2837846469) Lab Interpretation (test Abnormal code = 19459-3) [facility]HEPATIC FUNCTION PANEL (83911[facility] (ALB,T.PRO,BILI T,BU/BC,ALT,AST,ALK PHOS)2020-08-22 11:12:00 Test Item Value Reference Range Interpretation Comments TOTAL BILI (test code = 7553192559) 0.6 mg/dL 0.1-1.1 BILI UNCON (test code = 2872578027) 0.2 mg/dL 0.1-1.1 BILI CONJ (test code = 6341358749) 0.0 mg/dL 0-0.3 T PROTEIN (test code = 9573883894) 6.0 g/dL 6.3-8.2 L ALBUMIN (test code = 9393915538) 2.8 g/dL 3.5-5 L ALK PHOS (test code = 5184175771) 222 U/L 34-122 H ALTv (test code = 1742-6) 27 U/L 5-50 AST(SGOT) (test code = 4147749300) 30 U/L 13-40 Lab Interpretation (test code = Abnormal 94390-0) [facility] GLUCOSE (AUTOMATED)2020-08-22 10:11:00 Test Item Value Reference Range Interpretation Comments POCT GLU (test code = 7337197982) 196 mg/dL 70-110 H Lab Interpretation (test code = Abnormal 00607-0) [facility] GLUCOSE (AUTOMATED)2020-08-22 07:15:00 Test Item Value Reference Range Interpretation Comments POCT GLU (test code = 1656972025) 183 mg/dL 70-110 H Lab Interpretation (test code = Abnormal 75894-1) [facility] GLUCOSE (AUTOMATED)2020-08-22 02:30:00 Test Item Value Reference Range Interpretation Comments POCT GLU (test code = 7111740543) 295 mg/dL 70-110 H Lab Interpretation (test code = Abnormal 56057-4) [facility] GLUCOSE (AUTOMATED)2020-08-21 23:46:00 Test Item Value Reference Range Interpretation Comments POCT GLU (test code = 4174232317) 258 mg/dL 70-110 H Lab Interpretation (test code = Abnormal 27454-5) [facility] HospitalC-REACTIVE [id number] 18:50:00 Test Item Value Reference Range Interpretation Comments CRP (test code = 6560580603) 15.5 mg/dL <0.8 H Lab Interpretation (test code = Abnormal 63499-4) [facility]2020-08-21 18:21:00 Test Item Value Reference Range Interpretation Comments POCT GLU (test code = 9290196808) 297 mg/dL 70-110 H Lab Interpretation (test code = Abnormal 48125-6) [facility]ETHANOL2020-11-09 16:24:00 Test Item Value Reference Range Interpretation Comments ALCOHOL (test code = <10 mg/dL 9068634156) JAMES (test code = Toxic Greater than or JAMES) equal to 80 mg/dL. NOTE: Whole blood values are approximately 10% to 15% lower than serum and plasma. [facility]GAL/CLC ONLY - URINE DRUG (IMMUNOASSAY) - 4 ER [id number] 15:36:00 Test Item Value Reference Range Interpretation Comments AMPHET (test code = Negative Negative 2822914241) Cocaine Metabolite (test Negative Negative code = 0545238250) OPIATES (test code = Presumptive Positive Negative A 5502120269) THC (test code = Negative Negative 1046180274) JAMES (test code = JAMES) Urine Drug Cutoff Ranges Amphetamine: ? 1,000 ng/mLCocaine: ? 150 ng/mLOpiates: ? 300 ng/mLCannabinoids: ?50 ng/mL The results are to be used only for medical (i.e., treatment) purposes. Unconfirmed screening results must not be used for non-medical purposes (e.g., employment testing, legal testing). Lab Interpretation (test Abnormal code = 28792-8) [facility] ONLY - SYPHILIS IGG/[id number] 15:04:00 Test Item Value Reference Range Interpretation Comments Syphilis IgG/IgM (test Non-reactive Non-reactive code = 37304-7) JAMES (test code = JAMES) Non-reactive - No serologic evidence of T. pallidum infection. Cannot exclude incubating or early syphilis. Submit a second specimen in 2-4 weeks if syphilis is clinically suspected. Equivocal - Further testing to follow. Reactive - Further testing to follow. Lab Interpretation (test Normal code = 00750-5) [facility] HospitalUrinalysis2020-11-09 14:52:00 Test Item Value Reference Range Interpretation Comments APPEARANCE (test code = Clear Clear 3723043114) COLOR (test code = Yellow Yellow 1593146808) PH (test code = 4.8-8.0 0936346813) SP GRAVITY (test code = 1.003-1.030 2941684346) GLU U QUAL (test code = 500 mg/dL Normal A 1930256750) BLOOD (test code = Negative Negative 3865890456) KETONES (test code = 20 mg/dL Negative A 6394386319) PROTEIN (test code = Negative Negative 2887-8) UROBILIN (test code = Normal Normal 0145313101) BILIRUBIN (test code = Negative Negative 8373317830) NITRITE (test code = Negative Negative 3912101068) LEUK RYAN (test code = Negative Negative 2092651361) RBC/HPF (test code = <1 See_Comment [Autom ated message] 1229116524) The system [employer] generated this result transmit ronan reference range : 0 - 3 HPF. The refe rence range was not u sed to interpret th is result as normal/abnormal . WBC/HPF (test code = See_Comment [Autom ated message] 1179394258) The system [employer] generated this result transmit ronan reference range : 0 - 5 HPF. The refe rence range was not u sed to interpret th is result as normal/abnormal . BACTERIA (test code = Negative Negative 7408183372) MUCOUS (test code = Slight Negative LPF A 4520766129) Lab Interpretation (test Abnormal code = 18223-3) [facility] HospitalACTIVATED PARTIAL THRMPLAS [id number] 13:45:00 Test Item Value Reference Range Interpretation Comments APTT Patient (test code = See_Comment [ Automated message] 3173-2) The system [employer] generated this result transmitted ref erence range: 26 - 36 Seconds. The re ference range was not u sed to interpret this result as normal/abnor mal. Lab Interpretation (test Normal code = 76129-7) [facility]PO[facility]2020-08-21 13:45:00 Test Item Value Reference Range Interpretation Comments POCT GLU (test code = 2143931430) 246 mg/dL 70-110 H Lab Interpretation (test code = Abnormal 22055-8) [facility] HospitalHIV 1/2 AG-AB WITH [id number] 12:32:00 Test Item Value Reference Range Interpretation Comments HIV Negative Negative Semi-quantitative (test code = 30768-8) JAMES (test code = Non-reactive for HIV-1 JAMES) antigen and HIV-1/HIV-2 antibodies. ?No laboratory evidence of HIV infection. ?Repeat in 2-4 weeks if acute HIV infection is suspected. [facility] WITH [id number] 12:18:00 Test Item Value Reference Range Interpretation Comments WBC (test code = See_Comment [Automated 5790-2) message] The sy stem which generated this [...] RDW-SD (test code = 44.4 fL 38.5-51.6 25861-7) RDW-CV (test code = 14.5 % 12.1-15.4 788-0) PLT (test code = See_Comment H [Automated 777-3) message] The sy stem which generated this result transmitted reference range : 150 - 328 10*3/ ?L. The reference r torito was not used to interpret this result as normal/abnormal . MPV (test code = 8.5 fL 9.8-13 L 98608-9) NRBC/100 WBC (test See_Comment [Automat ed code = 5220983203) message] The system which generated this result transmitted reference range : 0.0 - 10.0 /100 WBCs. The refer ence range was not u sed to interpret th is result as normal/abnormal . NRBC x10^3 (test code <0.01 See_Comment [Auto mated = 3366459795) message] The s ystem which generated this result transmitted reference range : 10*3/?L. The reference range was not used to interpret this result as normal/abnormal . GRAN MAT (NEUT) % 90.4 % (test code = 770-8) IMM GRAN % (test code 1.30 % = 2942116237) LYMPH % (test code = 7.1 % 736-9) MONO % (test code = 0.5 % 5905-5) EOS % (test code = 0.1 % 713-8) BASO % (test code = 0.6 % 706-2) GRAN MAT x10^3(ANC) 7.74 10*3/uL 1.99-6.95 H (test code = 6015968952) IMM GRAN x10^3 (test 0.11 10*3/uL 0-0.06 H code = 7318035459) LYMPH x10^3 (test code 0.61 10*3/uL 1.09-3.23 L = 731-0) MONO x10^3 (test code 0.04 10*3/uL 0.36-1.02 L = 742-7) EOS x10^3 (test code = <0.03 0.06-0.53 L 711-2) BASO x10^3 (test code 0.05 10*3/uL 0.01-0.09 = 704-7) POLYCHROMASIA (test 2+ See_Comment [Automa ronan code = 60203-4) message] The system which generated this result transmitted reference range : 2+. The referen ce range was not u sed to interpret th is result as normal/abnormal . BANDS (test code = Increased A 2306176605) Lab Interpretation Abnormal (test code = 13927-9) [facility] HospitalPROCALCITONIN2020-11-09 11:48:00 Test Item Value Reference Range Interpretation Comments Procalcitonin (test 0.36 ng/mL <0.07 H code = 3699541686) JAMES (test code = JAMES) INTERPRETATION OF [...] lung abscess/empyema. For further information please refer to:[email or web address] Lab Interpretation Abnormal (test code = 57993-5) [facility] HospitalLACTATE [id number] 10:53:00 Test Item Value Reference Range Interpretation Comments LDH (test code = 0513524947) 351 U/L 300-600 Lab Interpretation (test code = Normal 23839-3) [facility] HospitalSEDIMENTATION [id number] 10:07:00 Test Item Value Reference Range Interpretation Comments ESR (test code = See_Comment H [Automated message] 6266077400) The system [employer] [employer] generated this result transmitted ref erence range: 0 - 10 m m/HR. The reference r torito was not used to interpret this result as normal/abnor mal. Lab Interpretation (test Abnormal code = 76053-3) [facility]2020-08-21 09:45:00 Test Item Value Reference Range Interpretation Comments POCT GLU (test code = 7978676434) 287 mg/dL 70-110 H Lab Interpretation (test code = Abnormal 87628-5) [facility]1C)2020-08-21 09:29:00 Test Item Value Reference Range Interpretation Comments HGB A1C (test code = 4548-4) 9.8 % 4-6 H Lab Interpretation (test code = Abnormal 62875-7) [facility] NOW RAPID TESTING)2020-08-21 09:13:00 Test Item Value Reference Range Interpretation Comments SARS-CoV-2 Rapid ID NOW Not Detected Not Detected (test code = 32654-1) JAMES (test code = JAMES) ID NOW COVID-19 Assay is an isothermal nucleic acid amplification test intended for the qualitative detection of nucleic acid from SARS-CoV-2 viral RNA in nasopharyngeal (CONSTRUCTION GRIP) specimens. It is used under Emergency Use [...] indicated. Lab Interpretation Normal (test code = 38648-1) [facility] / [id number] 08:59:00 Test Item Value Reference Range Interpretation Comments PROTIME PATIENT (test See_Comment H [Auto mated message] code = 5964-2) The system [employer] generated this result transmitted ref erence range: 10.1 - 1 2.6 Seconds. The reference range was not used to int erpret this result as normal/abnormal . INR (test code = 6301-6) Nor mal INR <1.1; Warfarin Therap eutic range 2.0 to 3. 0 or 2.5 to 3.5, dep ending upon the indica tions. Lab Interpretation (test Abnormal code = 99471-5) [facility] 08:59:00 Test Item Value Reference Range Interpretation Comments APTT Patient (test code = See_Comment [ Automated message] 3173-2) The system [employer] generated this result transmitted ref erence range: 26 - 36 Seconds. The re ference range was not u sed to interpret this result as normal/abnor mal. Lab Interpretation (test Normal code = 65980-7) [facility] (NA, K, CL, CO2, GLUCOSE, BUN, CREATININE, CA)2020-08-21 08:52:00 Test Item Value Reference Range Interpretation Comments NA (test code = 136 mmol/L 135-145 5392091529) K (test code = 4.3 mmol/L 3.5-5 6129725640) CL (test code = 104 mmol/L 98-108 1129419499) CO2 TOTAL (test code = 24 mmol/L 23-31 4329517370) AGAP (test code = 2-16 2284465701) BUN (test code = 8 mg/dL 7-23 4165965321) GLUCOSE (test code = 308 mg/dL 70-110 H 1300191156) CREATININE (test code = 0.72 mg/dL 0.6-1.25 9710164597) CALCIUM (test code = 7.8 mg/dL 8.6-10.6 L 9926785608) eGFR Calculation mL/min/1.73m2 (Non-) (test code = 2718730228) eGFR Calculation mL/min/1.73m2 () (test code = 9780599508) JAMES (test code = JAMES) Association of [...] tests). Lab Interpretation Abnormal (test code = 10643-0) [facility] PAN[facility] (11512) (ALB,T.PRO,BILI T,BU/BC,ALT,AST,ALK PHOS)2020-08-21 08:52:00 Test Item Value Reference Range Interpretation Comments TOTAL BILI (test code = 3295523787) 0.8 mg/dL 0.1-1.1 BILI UNCON (test code = 4728588991) 0.3 mg/dL 0.1-1.1 BILI CONJ (test code = 8586104397) 0.0 mg/dL 0-0.3 T PROTEIN (test code = 0007248343) 5.7 g/dL 6.3-8.2 L ALBUMIN (test code = 9162977619) 2.7 g/dL 3.5-5 L ALK PHOS (test code = 6262671583) 245 U/L 34-122 H ALTv (test code = 1742-6) 37 U/L 5-50 AST(SGOT) (test code = 9916535534) 43 U/L 13-40 H Lab Interpretation (test code = Abnormal 07474-4) [facility]
--- NOTE | 2022-01-15 08:58 | RAD REPORT ---
EXAM DESCRIPTION: CTSpine Lumbar Wo Con01/15/2022 8:43 am CLINICAL HISTORY: Radiculopathy/back pain COMPARISON: None TECHNIQUE: Computed axial tomography lumbar spine was obtained with coronal and sagittal reconstruct ion. All CT scans are performed using dose optimization technique as appropriate and may include automated exposure control or mA/KV adjustment according to patient size. FINDINGS: A neurostimulator device within the thoracic spinal canal. The tip is not included the fie ld view. No fracture or dislocation seen. Mild spondylosis L1-2 Disc bulge and facet hypertrophy L2-3. Mild narrowing of the neural foramina bilaterally Disc bulge and facet hypertrophy L3-4. Moderate narrowing of the right and mild moderate narrowing le ft neural foramina Hemilaminectomy L4-5. Thecal sac normal caliber. Neural foramina are patent. Slight posterior subluxation L5 on S1. Mild spondylosis. Posterior fusion lower lumbar spine. Narrowing of sacroiliac joints. IMPRESSION: Negative for a lumbar fracture. 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
[2022-01-15] MEDS ORDERED: HYDROCODONE/APAP 10/325 TAB ONE (09:39)
--- NOTE | 2022-01-15 10:35 | ER ---
Nurse's Notes [facility] Name: Kiel Ngo Age: 71 yrs Sex: Male : 1950 Arrival Date: 01/15/2022 Time: 07:20 Bed 30 Private MD: Diagnosis: Pain in right hip Presentation: 01/15 07:41 Chief complaint: Patient states: he is here for pain to his right groin and right ap3 thigh. Patient is requesting medication for pain, due to a reported nonfunctioning pain pump. Coronavirus screen: At this time, the client does not indicate any symptoms associated with coronavirus-19. Ebola Screen: No symptoms or risks identified at this time. Initial Sepsis Screen: Does the patient meet any 2 criteria? No. Patient's initial sepsis screen is negative. Does the patient have a suspected source of infection? No. Patient's initial sepsis screen is negative. Risk Assessment: Do you want to hurt yourself or someone else? Patient reports no desire to harm self or others. Onset of symptoms is unknown. 07:41 Method Of Arrival: EMS: [facility] ap3 07:41 Acuity: JOZEF 4 ap3 Triage Assessment: 07:45 General: Appears in no apparent distress. comfortable, Behavior is calm, cooperative, ap3 appropriate for age. Pain: Complains of pain in right femoral area, right inguinal area, right iliac crest and right hip Pain currently is 10 out of 10 on a pain scale. Neuro: Level of Consciousness is awake, alert, obeys commands, Oriented to person, place, time, situation. Respiratory: Airway is patent Respiratory effort is even, unlabored. Musculoskeletal: Range of motion: limited in all. Historical: - Allergies: 07:43 Demerol; ap3 07:43 metformin; ap3 07:43 Morphine; ap3 - Home Meds: 07:43 Metoprolol Tartrate Oral [Active]; ap3 - PMHx: 07:43 Atrial fibrillation; chronic back pain; Chronic right leg pain; neuropathy; ap3 - PSHx: 07:43 back sx; PANCREAS SX; R. Ankle SX; ap3 - Immunization history:: Adult Immunizations unknown, Client reports having NOT received the Covid vaccine. Flu vaccine is not up to date. - Social history:: Smoking status: Patient denies any tobacco usage or history of. Screenin:46 Abuse screen: Denies threats or abuse. Nutritional screening: No deficits noted. ap3 Tuberculosis screening: No symptoms or risk factors identified. Fall Risk. Assessment: 08:35 General: Appears in no apparent distress. uncomfortable, Behavior is calm, appropriate vg1 for age. Pain: Complains of pain in right leg and right hip Pain currently is 10 out of 10 on a pain scale. Quality of pain is described as sharp, Pain began 'since October'. Neuro: Level of Consciousness is awake, alert, obeys commands, Oriented to person, place, time, situation. Cardiovascular: Patient's skin is warm and dry. Respiratory: Airway is patent Respiratory effort is even, unlabored. GI: No signs and/or symptoms were reported involving the gastrointestinal system. : No signs and/or symptoms were reported regarding the genitourinary system. EENT: No signs and/or symptoms were reported regarding the EENT system. Derm: Skin is intact, Skin is PATRICIA lower extremities appear to be reddish/purple. Musculoskeletal: Reports weakness in right leg and left leg. 09:36 Reassessment: received VO from Galilea AVELAR to administer [place] 10 mg PO x1. vg1 09:39 Reassessment: Patient appears in no apparent distress at this time. No changes from vg1 previously documented assessment. Patient and/or family updated on plan of care and expected duration. Pain level reassessed. Patient is alert, oriented x 3, equal unlabored respirations, skin warm/dry/pink. 10:39 Reassessment: Patient appears in no apparent distress at this time. Patient and/or vg1 family updated on plan of care and expected duration. Pain level reassessed. Patient is alert, oriented x 3, equal unlabored respirations, skin warm/dry/pink. Rated pain 8/10. 10:53 Reassessment: Pt awaiting for EMS transportation. vg1 Vital Signs: 07:41 BP 127 / 76; Pulse 116; Resp 17; Temp 98.1; Pulse Ox 97% ; Weight 81.65 kg; Height 5 ap3 ft. 11 in. (180.34 cm); Pain 10/10; 08:51 BP 133 / 92; Pulse 105; Resp 16; Pulse Ox 97% on R/A; vg1 09:39 BP 136 / 86; Pulse 105; Resp 16; Pulse Ox 97% on R/A; vg1 10:39 BP 135 / 89; Pulse 105; Resp 16; Pulse Ox 96% on R/A; vg1 07:41 Body Mass Index 25.10 (81.65 kg, 180.34 cm) ap3 Gayathri Coma Score: 09:33 Eye Response: spontaneous(4). Verbal Response: oriented(5). Motor Response: obeys jr8 commands(6). Total: 15. ED Course: 07:20 Patient arrived in ED. ds1 07:43 Triage completed. ap3 07:45 Arm band placed on left wrist. ap3 08:06 Jaimie Rodríguez, RN is Primary Nurse. vg1 08:06 Abrahan Calero PA is PHCP. jr8 08:07 Abrahan Calero PA is PHCP. jr8 08:07 Rosa Harrison MD is Attending Physician. jr8 08:37 Patient has correct armband on for positive identification. Bed in low position. Call vg1 light in reach. Side rails up X2. 08:45 CT Lumbar Spine Wo Con In Process Unspecified. EDMS 10:37 XRAY Hip RIGHT 2 view In Process Unspecified. EDMS 10:53 No provider procedures requiring assistance completed. Patient did not have IV access vg1 during this emergency room visit. Administered Medications: 09:39 Drug: [place] (HYDROcodone-acetaminophen) 10 mg-325 mg 1 tabs Route: PO; vg1 10:39 Follow up: Response: No adverse reaction; Pain is decreased vg1 Outcome: 10:34 Discharge ordered by . jr8 10:53 Discharged to home via ambulance. vg1 10:53 Condition: good 10:53 Discharge instructions given to patient, Instructed on discharge instructions, follow up and referral plans. Demonstrated understanding of instructions, follow-up care. 11:02 Patient left the ED. vg1 Signatures: Dispatcher [employer] EDWI Ann Vallejo ds1 Abrahan Calero PA PA jrKatharine Hargrove RN RN ap3 Jaimie Rodríguez, RN RN vg1
--- NOTE | 2022-01-15 10:35 | EDPHYS ---
Physician Documentation [facility] Name: Kiel Ngo Age: 71 yrs Sex: Male : 1950 Arrival Date: 01/15/2022 Time: 07:20 Bed 30 Private MD: ED Physician Rosa Harrison HPI: 01/15 09:33 This 71 yrs old Male presents to ER via EMS with complaints of Thigh Pain. jr8 09:33 The patient presents with pain, that is chronic. Onset: The symptoms/episode jr8 began/occurred 4 month(s) ago. 71-year-old male presents with right hip and thigh pain for the past 4 months. He states that the pain is worsened within the past month. The pain starts at his hip and radiates down his right lower extremity. He reports that he has arthritis in his right hip. He denies any trauma or injury.. Historical: - Allergies: 07:43 Demerol; ap3 07:43 metformin; ap3 07:43 Morphine; ap3 - Home Meds: 07:43 Metoprolol Tartrate Oral [Active]; ap3 - PMHx: 07:43 Atrial fibrillation; chronic back pain; Chronic right leg pain; neuropathy; ap3 - PSHx: 07:43 back sx; PANCREAS SX; R. Ankle SX; ap3 - Immunization history:: Adult Immunizations unknown, Client reports having NOT received the Covid vaccine. Flu vaccine is not up to date. - Social history:: Smoking status: Patient denies any tobacco usage or history of. ROS: 09:33 Constitutional: Negative for fever, chills, and weight loss, Cardiovascular: Negative jr8 for chest pain, palpitations, and edema, Respiratory: Negative for shortness of breath, cough, wheezing, and pleuritic chest pain, Back: Negative for injury and pain. 09:33 MS/extremity: Positive for pain. jr8 Exam: 09:33 Constitutional: This is a well developed, well nourished patient who is awake, alert, jr8 and in no acute distress. Cardiovascular: Regular rate and rhythm with a normal S1 and S2. No gallops, murmurs, or rubs. Normal PMI, no JVD. No pulse deficits. Respiratory: Lungs have equal breath sounds bilaterally, clear to auscultation and percussion. No rales, rhonchi or wheezes noted. No increased work of breathing, no retractions or nasal flaring. 09:33 Musculoskeletal/extremity: Extremities: ROM: no acute changes, The patient is bed bound and has limited active ROM., Pulses: noted to be 1+ in the right dorsalis pedis artery and left dorsalis pedis artery, Perfusion: the extremity is noted to have sluggish capillary refill, Calf tenderness, is absent, Edema, 1+ to the left ankle, left foot, right ankle and right foot is noted, Sensation intact. Weight bearing: is unable to bear weight, DVT Exam: no pain, no swelling, no tenderness, no erythema, no increased warmth, No asymmetry of bilateral lower extremities. No tenderness to palpation over hip or thigh.. 09:33 Skin: venous stasis present in bilateral ankles/feet.. Vital Signs: 07:41 BP 127 / 76; Pulse 116; Resp 17; Temp 98.1; Pulse Ox 97% ; Weight 81.65 kg; Height 5 ap3 ft. 11 in. (180.34 cm); Pain 10/10; 08:51 BP 133 / 92; Pulse 105; Resp 16; Pulse Ox 97% on R/A; vg1 09:39 BP 136 / 86; Pulse 105; Resp 16; Pulse Ox 97% on R/A; vg1 10:39 BP 135 / 89; Pulse 105; Resp 16; Pulse Ox 96% on R/A; vg1 07:41 Body Mass Index 25.10 (81.65 kg, 180.34 cm) ap3 Gayathri Coma Score: 09:33 Eye Response: spontaneous(4). Verbal Response: oriented(5). Motor Response: obeys jr8 commands(6). Total: 15. MDM: 08:07 Patient medically screened. jr8 10:32 Data reviewed: vital signs, nurses notes, radiologic studies, CT scan, plain films. jr8 Data interpreted: Pulse oximetry: on room air is 97 %. Interpretation: normal. 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 Response to treatment: the patient's symptoms have mildly improved after treatment. ED course: Patient remains hemodynamically stable, pain well controlled at this point. Discussed with him that there is mild spinal changes but no acute cord compression. Patient does not exhibit any signs and symptoms of acute cord compression on physical exam as well. Right hip shows arthritis present but no acute fracture. Patient is to follow-up with pain management which she has an appointment for already. Knows to come back if any worsening point time. Patient good with plan at this time.. 01/15 08:23 Order name: CT Lumbar Spine Wo Con; Complete Time: 09:07 jr8 01/15 08:23 Order name: XRAY Hip RIGHT 2 view; Complete Time: 10:52 jr8 Administered Medications: 09:39 Drug: [place] (HYDROcodone-acetaminophen) 10 mg-325 mg 1 tabs Route: PO; vg1 10:39 Follow up: Response: No adverse reaction; Pain is decreased vg1 Disposition Summary: 01/15/22 10:34 Discharge Ordered Location: Home jr8 Problem: new jr8 Symptoms: have improved jr8 Condition: Stable jr8 Diagnosis - Pain in right hip jr8 Followup: jr8 - With: Private Physician - When: 2 - 3 days - Reason: Recheck today's complaints, Continuance of care, Re-evaluation by your physician Discharge Instructions: - Discharge Summary Sheet jr8 - Arthritis jr8 - Hip Pain jr8 Forms: - Medication Reconciliation Form jr8 - Thank You Letter jr8 - Antibiotic Education jr8 - Prescription Opioid Use jr8 Signatures: Dispatcher [employer] EDMS Abrahan Calero PA PA jr8 Katharine Boogie RN RN ap3 Jaimie Rodríguez RN RN vg1 Corrections: (The following items were deleted from the chart) 09:36 09:33 71-year-old male presents with right hip and thigh pain for the past 4 months. He jr8 states that the pain is worsened within the past month. The pain starts at his hip and radiates down his right lower extremity. He reports that he has arthritis in his right hip.. jr8
--- NOTE | 2022-01-15 10:50 | RAD REPORT ---
EXAM DESCRIPTION: RAD - Hip Right 2 View - 01/15/2022 10:35 am CLINICAL HISTORY: Right hip pain FINDINGS: No fracture or dislocation is seen. Moderate osteoarthritis mainly consisting joint space narrowing, osteophytes and subchondral sclerosi s. Bones are osteoporotic.
[2022-01-15 14:47] VITALS: TEMP 98.1
[2022-01-15 14:51] VITALS: BP 135/89; O2SAT 96
== END 2022-01-15 11:02 | disposition home or self-care (01) ==
LOC: ER 07:11
DX: M25.551 Pain in right hip (principal); I48.91 Unspecified atrial fibrillation; Z88.5 Allergy status to narcotic agent
CPT/HCPCS: 72131; 99284

== ENCOUNTER 2022-01-16 04:37 | Emergency (ER) | payer OTHER ==
--- OUTSIDE RECORDS SUMMARY | 2022-01-16 04:44 | XMS REPORT | Continuity of Care Document ---
:1950 Author Organization [facility] t Address [address] [place] [address] Dr. Motley [address] [place] [id number] Care Team Providers Name Role Phone DIOGENES [...] Policy Number Effective Date Expiration Date [facility] MEDICARE PART A [id number] 2007 \\T\\ B 00:00:00 [employer] INDEMNITY [id number] 2016 00:00:00 MEDICARE PART A [id number] 2014 \\T\\ B - MEDICARE 00:00:00 INDEMNITY/TRADITIO [id number] [id number] NAL CHOICE - [employer] 00:00:00 Problems Condition [...] ents Source Name Type Date Date Clinician Telfair Propensi Active Rash 2019- Univers ty to [...] vers NE INGREDI 3-16 ity of 00:00: [place] 00 [facility] Branch GLIMEPIR DRUG Active Hives Univers EFREN INGREDI 3-16 ity of 00:00: [place] 00 Medical Branch METFORMI DRUG Active ITCHING Univers N INGREDI 3-16 ity of 00:00: [place] [id number] Medical Branch Social History Social Habit Start Date Stop Date Quantity Comments Source Exposure to Not sure University of SARS-CoV-2 [facility] (event) Branch History of Chews Tobacco University of tobacco use [facility] History SDKS 2020-11-17 2020-11-17 5 University o f Financial 00:00:00 00:00:00 [facility] Branch History SDKS Food 2020-11-17 2020-11-17 1 Univers ity of Worry 00:00:00 00:00:00 [facility] History [facility] Food 2020-11-17 2020-11-17 1 Univers ity of Scarcity 00:00:00 00:00:00 [facility] History [facility] 2020-11-17 2020-11-17 1 University o f Transport Med 00:00:00 00:00:00 [facility] Branch History [facility] 2020-11-17 2020-11-17 1 University o f Transport Non-Med 00:00:00 00:00:00 [facility] edical Branch Education 2020-11-16 2020-11-16 21 [place] of 00:00:00 00:00:00 [facility] Alcohol intake 2020-11-16 2020-11-16 Ex-drinker [facility] 00:00:00 00:00:00 (finding) [facility] Tobacco use and 2020-08-21 2020-08-21 Former user Universi ty of exposure 00:00:00 00:00:00 [facility] Tobacco Comment 2020-08-21 2020-08-21 quit 10 years Univer sity of 00:00:00 00:00:00 ago, started in [place] Med ica 2nd year of Branch college (~40 years) Alcohol Comment 2020-08-21 2020-08-21 Used to have 2-3 Uni versity of 00:00:00 00:00:00 six-packs of [place] Medica l beer daily x 20 Branch years, quit 2005 History SDKS 2020-08-21 2020-08-21 99 University o f Alcohol Frequency 00:00:00 00:00:00 [place] M edical Branch History SDKS 2020-08-21 2020-08-21 99 [place] o f Alcohol Std 00:00:00 00:00:00 [place] Medical Drinks Branch History [facility] 2020-08-21 2020-08-21 99 [place] o f Alcohol Binge 00:00:00 00:00:00 [facility] Branch Sex Ass[birth year] At [birth year] Universit y of 00:00:00 00:00:00 [place] [facility] Branch Smoking Status Start Date Stop Date Source Never smoker [facility] Branch Medications Ordered Filled Start Stop [...] by ity of tablet 16:47: mouth at [place] 18 bedtime. Medical Branch HYDROmorpho Yes 4mg [...] 0845, Until Discontinu ed, Routine amLODIPine Yes [id number] 10mg Take 1 Univers 10 mg 3-07 tablet by ity of tablet 00:00: mouth [place] 00 daily. Medical Branch clotrimazol 0 Yes [id number] Apply to Univers e 1 % 3-07 face/ears, ity of topical 00:00: armpits, [place] cream 00 pannus and Medical back/any Branch other rash twice a day fluocinonid 0 Yes [id number] Apply to Univers e 0.05 % 3-07 scalp ity of solution 00:00: twice a [place] 00 day Medical Branch triamcinolo 0 Yes [id number] Apply to Univers ne 3-07 back, ity of acetonide 00:00: armpits [place] 0.1 % cream 00 and other Med ical affected Branch areas twice daily, please mix with clotrimazo le hydrOXYzine 0 Yes [id number] 10mg Take 1 Univers 10 mg 3-07 tablet by ity of tablet 00:00: mouth 2 00 (two) Medical times Branch daily. amLODIPine Yes [id number] 10mg Take 1 Univers 10 mg 3-07 tablet by ity of tablet 00:00: mouth 00 daily. Medical Branch clotrimazol 2020-0 Yes [id number] Apply to Univers e 1 % 3-07 face/ears, ity of topical 00:00: armpits, [place] cream 00 pannus and Medical back/any Branch other rash twice a day fluocinonid 2020-0 Yes [id number] Apply to Univers e 0.05 % 3-07 scalp ity of solution 00:00: twice a day Medical Branch triamcinolo 2020-0 Yes [id number] Apply to Univers ne 3-07 back, ity of acetonide 00:00: armpits [place] 0.1 % cream 00 and other Med ical affected Branch areas twice daily, please mix with clotrimazo le hydrOXYzine Yes [id number] 10mg Take 1 Univers 10 mg 3-07 tablet by ity of tablet 00:00: mouth 2 (two) Medical times Branch daily. amLODIPine Yes [id number] 10mg Take 1 Univers 10 mg 3-07 tablet by ity of tablet 00:00: mouth 00 daily. Medical Branch clotrimazol 0 Yes [id number] Apply to Univers e 1 % 3-07 face/ears, ity of topical 00:00: armpits, [place] cream 00 pannus and Medical back/any Branch other rash twice a day fluocinonid 2020-0 Yes [id number] Apply to Univers e 0.05 % 3-07 scalp ity of solution 00:00: twice a [place] 00 day Medical Branch triamcinolo 2020-0 Yes [id number] Apply to Univers ne 3-07 back, ity of acetonide 00:00: armpits [place] 0.1 % cream 00 and other Med ical affected Branch areas twice daily, please mix with clotrimazo le hydrOXYzine 2021-0 Yes [id number] 10mg Take 1 Univers 10 mg 3-07 tablet by ity of tablet 00:00: mouth 2 [place] 00 (two) Medical times Branch daily. amLODIPine Yes [id number] 10mg Take 1 Univers 10 mg 3-07 tablet by ity of tablet 00:00: mouth [place] 00 daily. Medical Branch clotrimazol Yes [id number] Apply to Univers e 1 % 3-07 face/ears, ity of topical 00:00: armpits, [place] cream 00 pannus and Medical back/any Branch other rash twice a day fluocinonid 0 Yes [id number] Apply to Univers e 0.05 % - scalp ity of solution 00:00: twice a [place] 00 day Medical Branch triamcinolo Yes [id number] Apply to Univers ne 3-07 back, ity of acetonide 00:00: armpits [place] 0.1 % cream 00 and other Med ical affected Branch areas twice daily, please mix with clotrimazo le hydrOXYzine Yes [id number] 10mg Take 1 Univers 10 mg 3-07 tablet by ity of tablet 00:00: mouth 2 [place] 00 (two) Medical times Branch daily. cephALEXin 2020-2020- No [id number] 500mg Take 1 Univers 500 mg 3-04 14- capsule by ity of capsule 00:00: 05:59 mouth [place] 00 :00 every 6 Medical (six) Branch hours for 3 days. cephALEXin 2020-0 202- No [id number] 500mg Take 1 Univers 500 mg 3-04 14-11 capsule by ity of capsule 00:00: 05:59 mouth [place] 00 :00 every 6 Medical (six) Branch hours for 3 days. hydrOXYzine 2020-0 2020- No [id number] 10mg Take 1 Univers 10 mg 3-04 14-07 tablet by ity of tablet 00:00: 00:00 mouth 2 [place] 00 :00 (two) Medical times Branch daily. morpHINE Yes 4mg 4 mg, Slow Uni vers injection 4 - IV Push, ity of mg 22:40: Q6HPRN, [place] 02 Starting Medical 12/16/20 Branch at 1640, [...] IV [place] 500 mL 00 :00 Piggyback, [facility] ONCE, 1 Branch dose, Fri12/15/20 at 1000, STAT HYDROmorpho Yes 4mg 4 mg, Unive rs ne 12-15 Oral, BID, ity of (DILAUDID) 15:30: First dose [place] tablet 4 mg 00 (after Medica l last Branch modificati on) on Fri12/15/20 at 0930, Until Discontinu ed, Routine amLODIPine 2020- No [id number] 10mg Take 1 Univers 10 mg 12-15 tablet by ity of tablet 00:00: 00:00 mouth [place] 00 :00 daily. Medical Branch HYDROmorpho 2020- No 1mg 1 mg, Univ ers ne 12-14 Oral, ity of (DILAUDID) 17:35: 15:18 Q6HPRN, [place] tablet 1 mg 30 :06 Starting Medi jose c [facility] 12/14/20 Branch at 1135, Until Fri12/15/20 at 0918, Routine, Pain (scale 7-10) hydrOXYzine Yes 10mg 10 mg, Univ ers (ATARAX) 12-14 Oral, BID, ity o f tablet 10 17:30: First dose [place] mg 00 on [facility] Medical 12/14/20 at Branch 1130, Until Discontinu ed, Routine lisinopriL Yes 5mg 5 mg, Univer s (PRINIVIL,Z 12-14 Oral, ity of ESTRIL) 17:30: DAILY, [place] tablet 5 mg 00 First dose Me dical on [facility] Branch 12/14/20 at 1130, Until Discontinu ed, Routine triamcinolo 2020- No [id number] Apply to [facility] ne 12-14 back, ity of acetonide 00:00: 00:00 armpits [place] 0.1 % cream 00 :00 and other Med ical affected Branch areas twice daily, please mix with clotrimazo le clotrimazol 2020- No [id number] Apply to Univers e 1 % 12-14 face/ears, ity of topical 00:00: 00:00 armpits, [place] cream 00 :00 pannus and Medical back/any Branch other rash twice a day fluocinonid 2020- No [id number] Apply to Univers e 0.05 % 12-14 scalp ity of solution 00:00: 00:00 twice a [place] 00 :00 day Medical Branch hydrOXYzine 2020- No [id number] 10mg Take 1 Univers 10 mg 12-14 [...] injection 4 00 :00 dose, [facility] ical mg 12/12/20 at Branch 2300, Routine traMADoL 2020- No 50mg 50 mg, Univer s (ULTRAM) 12-13 03-03 Oral, ity of tablet 50 03:45: 03:34 ONCE, 1 [place] mg 00 :00 dose, [facility] 12/12/20 at Branch 2145, Routine insulin Yes 15U 15 Units, [facility] rs glargine 12-12 Subcutaneo ity o f (LANTUS 15:00: us, DAILY, [place] U-100) 00 First dose Medical injection on [facility] 15 Units 12/12/20 at 0900, Until Discontinu ed hydrOXYzine 2020- No 10mg 10 mg, Uni vers (ATARAX) 12-12 03-02 Oral, ity of tablet 10 08:15: 07:33 ONCE, 1 [place] mg 00 :00 dose, [facility] 12/12/20 at Branch 0215, Routine mirtazapine Yes 7.5mg 7.5 mg, Un toi (REMERON) 3-02 Oral, QHS, ity of tablet 7.5 03:00: First dose [place] mg 00 on [facility] 12/11/20 at Branch 2100, Until Discontinu ed, Routine venlafaxine Yes 300mg 300 mg, Un toi XR (EFFEXOR 3-02 Oral, QHS, it y of XR) 24 hr 03:00: First dose [place] capsule 300 00 on [facility] Medica l mg 12/11/20 at Branch 2100, Until Discontinu ed, Routine fluocinonid Yes Topical, Un toi e (LIDEX) 12-12 BID, First ity of 0.05 % 02:00: dose on [place] solution 00 Fri12/11/20 Medic al at 2000, Branch Until Discontinu ed, Routine acetaminoph 2020- No 1{tbl} 1 tablet, Univers en-codeine 12-1105 Oral, ity of (TYLENOL 23:23: 13:49 Q6HPRN, [place] #3) 300-30 43 :08 Starting Medic al [...] of 1,000 mg in 19:00: 17:35 Piggyback, [place] NaCl 0.9% 00 :26 Q8H ABX, Medica [...] Routine insulin Yes 5U 5 Units, [facility] s lispro 12-11 Subcutaneo ity of (human) 18:00: us, TID [place] (HumaLOG 00 MEALS, Medical U-100) First dose Branch injection 5 on Fri Units 12/11/20 at 1200, Until Discontinu ed Polyethylen Yes 17g 17 g, [facility] rs e Glycol 12-11 Oral, ity of 3350 17:47: N40PCNT, [place] (MIRALAX) 05 Starting Medica l powder 17 g Fri12/11/20 Br anch at 1147, Until Discontinu ed, Routine, Constipati on acetaminoph Yes 650mg 650 mg, Un toi en 12-11 Oral, ity of (TYLENOL) 16:51: Q6HPRN, [place] tablet 650 28 Starting Medic al mg [...]
Duration of therapy: 72 hours sennosides- Yes [id number] 1{tbl} Take 1 Univers docusate 2-09 tablet by ity of sodium 00:00: mouth 2 [place] 8.6-50 mg 00 (two) Medical per tablet times Branch daily. hydrocortis Yes [id number] Apply to [facility] one 2.5 % 11-21 affected ity of cream 00:00: area(s) 2 [place] 00 (two) Medical times Branch daily. blood sugar Yes [id number] Use to [facility] diagnostic 11-21 check ity of (FREESTYLE 00:00: blood [place] LITE 00 glucose Medical STRIPS) 4-5 times Branch strip daily. Polyethylen Yes [id number] 17g Take 1 Univers e Glycol 2-09 Packet by ity of 3350 17 00:00: mouth [place] gram powder 00 every 24 Medi jose c (twenty-fo Branch ur) hours as needed for Constipati on. sennosides- Yes [id number] 1{tbl} Take 1 Univers docusate 2-09 tablet by ity of sodium 00:00: mouth 2 [place] 8.6-50 mg 00 (two) Medical per tablet times Branch daily. hydrocortis 2020-0 Yes [id number] Apply to Univers one 2.5 % 2-09 affected ity of cream 00:00: area(s) 2 [place] 00 (two) Medical times Branch daily. blood sugar 2020-0 Yes [id number] Use to [facility] diagnostic 11-21 check ity of (FREESTYLE 00:00: blood [place] LITE 00 glucose Medical STRIPS) 4-5 times Branch strip daily. Polyethylen 2020-0 Yes [id number] 17g Take 1 Univers e Glycol 2-09 Packet by ity of 3350 17 00:00: mouth [place] gram powder 00 every 24 Medi jose c (twenty-fo Branch ur) hours as needed for Constipati on. sennosides- 2020-0 Yes [id number] 1{tbl} Take 1 Univers docusate 2-09 tablet by ity of sodium 00:00: mouth 2 [place] 8.6-50 mg 00 (two) Medical per tablet times Branch daily. hydrocortis 2020-0 Yes [id number] Apply to Univers one 2.5 % 2-09 affected ity of cream 00:00: area(s) 2 [place] 00 (two) Medical times Branch daily. blood sugar 2020-0 Yes [id number] Use to [facility] diagnostic 11-21 check ity of (FREESTYLE 00:00: blood [place] LITE 00 glucose Medical STRIPS) 4-5 times Branch strip daily. Polyethylen 2020-0 Yes [id number] 17g Take 1 Univers e Glycol 2-09 Packet by ity of 3350 17 00:00: mouth [place] gram powder 00 every 24 Medi jose c (twenty-fo Branch ur) hours as needed for Constipati on. sennosides- 2020-0 Yes [id number] 1{tbl} Take 1 Univers docusate 2-09 tablet by ity of sodium 00:00: mouth 2 [place] 8.6-50 mg 00 (two) Medical per tablet times Branch daily. hydrocortis 2020-0 Yes [id number] Apply to Univers one 2.5 % 2-09 affected ity of cream 00:00: area(s) 2 [place] 00 (two) Medical times Branch daily. blood sugar Yes [id number] Use to [facility] diagnostic 11-21 check ity of (FREESTYLE 00:00: blood [place] LITE 00 glucose Medical STRIPS) 4-5 times Branch strip daily. Polyethylen Yes [id number] 17g Take 1 Univers e Glycol 11-21 Packet by ity of 3350 17 00:00: mouth [place] gram powder 00 every 24 Medi jose c (twenty-fo Branch ur) hours as needed for Constipati on. Insulin 2020- No [id number] 15U inject 15 Univers Glargine 11-21 Units ity of (LANTUS 00:00: 05:59 [place] SOLOSTAR 00 :00 skin every Medic al U-100 morning Branch INSULIN) for 30 100 unit/mL days. (3 mL) injection venlafaxine 2020- No [id number] 150mg Take 1 Univers XR 150 mg 11-21 capsule by ity of 24 hr 00:00: 05:59 mouth 3 [place] capsule 00 :00 (three) Medical times Branch daily for 30 days. Insulin 2020- No [id number] 15U inject 15 Univers Glargine 11-21 Units ity of (LANTUS 00:00: 05:59 under the [place] SOLOSTAR 00 :00 skin every Medic al U-100 morning Branch INSULIN) for 30 100 unit/mL days. (3 mL) injection venlafaxine 2020- No [id number] 150mg Take 1 Univers XR 150 mg 11-21 capsule by ity of 24 hr 00:00: 05:59 mouth 3 [place] capsule 00 :00 (three) Medical times Branch daily for 30 days. triamcinolo 2020- No [id number] Apply to [facility] ne 11-21 area(s) 2 ity of acetonide 00:00: 00:00 (two) [place] 0.1 % cream 00 :00 times Medical daily. Branch cephALEXin 2020- No [id number] 1000mg Take 2 Univers 500 mg 11-21 capsules ity of capsule 00:00: 00:00 by mouth 3 [place] 00 :00 (three) Medical times Branch daily. doxycycline 2020- No [id number] 100mg Take 1 Univers hyclate 100 11-21 capsule by i ty of mg capsule 00:00: 00:00 mouth [place] 00 :00 every 12 Medical (twelve) Branch hours. lactobacill 2020- No [id number] 1{tbl} Take 1 Univers us 11-21 tablet by ity of acidophilus 00:00: 00:00 mouth 2 [place] 25 million 00 :00 (two) Medical cell -100 times Branch mg captab daily. bisacodyL 2020- No [id number] 10mg Insert 1 Univers 10 mg 11-21 Suppositor ity of suppository 00:00: 00:00 y into [place] 00 :00 rectum at Medical bedtime as Branch needed for Constipati on. ALPRAZolam 2020- No [id number] .25mg Take 1 Univers (XANAX) 11-21 tablet by ity of 0.25 mg 00:00: 00:00 mouth 2 [place] tablet 00 :00 (two) Medical times Branch daily. hydrOXYzine 2020- No [id number] 20mg Take 2 Univers 10 mg 11-21 [...] Units ity of (LANTUS 01:13: under the [place] SOLOSTVT) 36 skin. Medical 100 unit/mL Branch [...] Units ity of (LANTUS 01:13: under the [place] SOLOSTAR) 36 skin. Medical 100 unit/mL Branch [...] Units ity of (LANTUS 01:13: under the [place] SOLOSTAR) 36 skin. Medical 100 unit/mL Branch [...] Units ity of (LANTUS 01:13: under the [place] SOLOSTAR) 36 skin. Medical 100 unit/mL Branch (3 mL) InPn INSULIN 2019-10 Yes 5U inject 5 Univer s ASPART 1-12 Units ity of (NOVOLOG 01:13: under the [facility] s FLEXPEN SC) 36 skin. [...] Units ity of (LANTUS 01:13: under the [place] SOLOSTAR) 36 skin. Medical 100 unit/mL Branch [...] 34 :00 Medical Branch hydrocortis 2019- Yes [id number] Apply to Univers one 2.5 % 1-11 affected ity of cream 00:00: area(s) 2 [place] 00 (two) Medical times Branch daily. hydrOXYzine 2019- Yes [id number] 20mg Take 2 Univers 10 mg 1-11 tablets by ity of tablet 00:00: mouth [place] 00 every 8 Medical (eight) Branch hours as needed for Itching or Anxiety. Polyethylen 2019- Yes [id number] 17g Take 1 Univers e Glycol 1-11 Packet by ity of 3350 17 00:00: mouth [place] gram powder 00 every 24 Medi jose c (twenty-fo Branch ur) hours as needed for Constipati on. hydrocortis 2019- Yes [id number] Apply to Univers one 2.5 % 1-11 affected ity of cream 00:00: area(s) 2 [place] 00 (two) Medical times Branch daily. hydrOXYzine 2019- Yes [id number] 20mg Take 2 Univers 10 mg 1-11 tablets by ity of tablet 00:00: mouth [place] 00 every 8 Medical (eight) Branch hours as needed for Itching or Anxiety. Polyethylen 2019- Yes [id number] 17g Take 1 Univers e Glycol 1-11 Packet by ity of 3350 17 00:00: mouth [place] gram powder 00 every 24 Medi jose c (twenty-fo Branch ur) hours as needed for Constipati on. hydrocortis 2019- Yes [id number] Apply to Univers one 2.5 % 1-11 affected ity of cream 00:00: area(s) 2 [place] 00 (two) Medical times Branch daily. hydrOXYzine 2019- Yes [id number] 20mg Take 2 Univers 10 mg 1-11 tablets by ity of tablet 00:00: mouth [place] 00 every 8 Medical (eight) Branch hours as needed for Itching or Anxiety. Polyethylen 2020- Yes [id number] 17g Take 1 Univers e Glycol 1-11 Packet by ity of 3350 17 00:00: mouth [place] gram powder 00 every 24 Medi jose c (twenty-fo Branch ur) hours as needed for Constipati on. hydrocortis 2019- Yes [id number] Apply to Univers one 2.5 % 1-11 affected ity of cream 00:00: area(s) 2 [place] 00 (two) Medical times Branch daily. hydrOXYzine 2019- Yes [id number] 20mg Take 2 Univers 10 mg 1-11 tablets by ity of tablet 00:00: mouth [place] 00 every 8 Medical (eight) Branch hours as needed for Itching or Anxiety. Polyethylen 2019- Yes [id number] 17g Take 1 Univers e Glycol 1-11 Packet by ity of 3350 17 00:00: mouth [place] gram powder 00 every 24 Medi jose c (twenty-fo Branch ur) hours as needed for Constipati on. hydrocortis 2019- Yes [id number] Apply to Univers one 2.5 % 1-11 affected ity of cream 00:00: area(s) 2 [place] (two) Medical times Branch daily. hydrOXYzine 2019- Yes [id number] 20mg Take 2 Univers 10 mg 1-11 tablets by ity of tablet 00:00: mouth [place] 00 every 8 Medical (eight) Branch hours as needed for Itching or Anxiety. Polyethylen 2019- Yes [id number] 17g Take 1 Univers e Glycol 1-11 Packet by ity of 3350 17 00:00: mouth [place] gram powder 00 every 24 Medi jose c (twenty-fo Branch ur) hours as needed for Constipati on. hydrocortis 2019- Yes [id number] Apply to Univers one 2.5 % 1-11 affected ity of cream 00:00: area(s) 2 [place] 00 (two) Medical times Branch daily. hydrOXYzine 2019- Yes [id number] 20mg Take 2 Univers 10 mg 1-11 tablets by ity of tablet 00:00: mouth [place] 00 every 8 Medical (eight) Branch hours as needed for Itching or Anxiety. Polyethylen 2020- Yes [id number] 17g Take 1 Univers e Glycol 1-11 Packet by ity of 3350 17 00:00: mouth [place] gram powder 00 every 24 Medi jose c (twenty-fo Branch ur) hours as needed for Constipati on. hydrocortis 2019-10 Yes [id number] Apply to Univers one 2.5 % 1-11 affected ity of cream 00:00: area(s) 2 [place] 00 (two) Medical times Branch daily. hydrOXYzine 2019-10 Yes [id number] 20mg Take 2 Univers 10 mg 1-11 tablets by ity of tablet 00:00: mouth [place] 00 every 8 Medical (eight) Branch hours as needed for Itching or Anxiety. Polyethylen 2019-10 Yes [id number] 17g Take 1 Univers e Glycol 1-11 Packet by ity of 3350 17 00:00: mouth [place] gram powder 00 every 24 Medi jose c (twenty-fo Branch ur) hours as needed for Constipati on. triamcinolo 2019-10 2020- No [id number] Apply to [facility] 10-23 area(s) 2 ity of acetonide 00:00: 05:59 (two) [place] 0.1 % cream 00 :00 times Medical daily for Branch 14 days. triamcinolo 2019-10 2020- No [id number] Apply to [facility] 10-23 area(s) 2 ity of acetonide 00:00: 05:59 (two) [place] 0.1 % cream 00 :00 times Medical daily for Branch 14 days. triamcinolo 2019-10 2020- No [id number] Apply to [facility] 10-23 area(s) 2 ity of acetonide 00:00: 05:59 (two) [place] 0.1 % cream 00 :00 times Medical daily for Branch 14 days. KCL 2019-10 2020- No 40meq 40 mEq, Univers (KLOR-CON 1- 11-10 Oral, ONCE ity of M20) tablet 16:15: 16:23 NOW, 1 [place] 40 mEq 00 :00 dose, [facility] 08/22/20 Branch at 1015, Routine HYDROmorpho 2019-10 Yes 1mg 1 mg, Unive rs ne 1- Oral, ity of (DILAUDID) 15:07: Q6HPRN, [place] tablet 1 mg 53 Starting Medi jose c [facility] Branch 08/22/20 at 0907, Until Discontinu ed, Routine, Pain (scale 7-10) hydrocortis 2019- Yes Topical Uni vers one 2.5 % 1-10 (Apply To ity o f cream 02:00: Affected [place] 00 Areas), Medical BID, First Branch dose on 08/21/20 at 2000, Until Discontinu ed, Routine triamcinolo 2019- Yes Topical, Un toi ne 1-10 BID, First ity of acetonide 02:00: dose on [place] (TRIDERM) 00 Mon Medical 0.1 % cream 08/21/20 at Br anch 2000, Until Discontinu ed, Routine hydrOXYzine 2019-10 Yes 20mg 20 mg, Univ ers (ATARAX) 09 Oral, ity of tablet 20 17:39: Q8HPRN, [place] mg 12 Starting Medical [facility] Branch 08/21/20 at 1139, Until Discontinu ed, Routine, Itching, Anxiety sennosides- 2019-10 Yes 1{tbl} 1 tablet, Univers docusate 10-21 Oral, ity of sodium 15:00: DAILY, [place] (SENOKOT-S) 00 First dose Me dical 8.6-50 mg on Fri Branch per tablet 08/21/20 at 1 tablet 0900, Until Discontinu ed, Routine hydrocortis 2019-10 2020- No Topical Un toi one 1 % 10-21 (Apply To ity of cream 15:00: 22:54 Affected [place] 00 :48 Areas), Medical DAILY, Branch First [...] 25 59 :43 Starting Medica l mg [facility] 08/21/20 at 0656, Until [facility] 08/21/20 at 1139, Routine, Itching, Mild Rash, Congestion /Allergies , alternate with hydroxyzin e hydrOXYzine 2019-10 2020- No 10mg 10 mg, Uni vers (ATARAX) 10-21 Oral, ity of tablet 10 10:20: 12:57 Q6HPRN, [place] mg 22 :12 Starting [facility] 08/21/20 at 0420, Until [facility] 08/21/20 at 0657, Routine, Itching, Anxiety Sliding 2019-10 Yes Subcutaneo Univ ers Scale 10-21 us, Q4H, ity of Insulin - 10:00: First dose [place] Aspart 00 (after Medical (NOVOLOG) + last Branch Fsbg modificati Testing on) on [facility] 08/21/20 at 0400, Until Discontinu ed, Routine lidocaine 5 2019-10 2020- No Topical, U nivers % ointment 10-21 ONCE, 1 ity o f 09:30: 09:14 dose, [facility] 00 :00 08/21/20 at [facility] 0330, Branch Routine Polyethylen 2019-10 Yes 17g 17 g, [facility] rs e Glycol 10-21 Oral, ity of 3350 08:29: [id number], [place] (MIRALAX) 09 Starting Medica l powder 17 g [facility] 08/21/20 at 0229, Until Discontinu ed, Routine, Constipati on lanolin 2019-10 [facility] PRN, ity of w.pet-ceres 08:26: Starting [place] (EUCERIN) 30 [facility] cream 08/21/20 at Branch 0226, Until [...] hours. Branch blood sugar Yes Use to [facility] ers diagnostic -25 check ity of (FREESTYLE 00:00: blood [place] LITE 00 glucose Medical STRIPS) 4-5 times Branch strip daily. blood sugar Yes Use to [facility] ers diagnostic 4-25 check ity of (FREESTYLE 00:00: blood [place] LITE 00 glucose Medical STRIPS) 4-5 times Branch strip daily. blood sugar Yes Use to [facility] ers diagnostic -25 check ity of (FREESTYLE 00:00: blood [place] LITE 00 glucose Medical STRIPS) 4-5 times Branch strip daily. blood sugar Yes Use to [facility] ers diagnostic 4-25 check ity of (FREESTYLE 00:00: blood [place] LITE 00 glucose Medical STRIPS) 4-5 times Branch strip daily. blood sugar Yes Use to [facility] ers diagnostic 4-25 check ity of [...] mm[Hg] Univer sity of pressure [facility] Branch Diastolic blood 2021-08-22 13:00:00 84 mm[Hg] Unive rsity of pressure [facility] Heart rate 2021-08-22 13:00:00 103 /min [facility] Respiratory rate 2021-08-22 13:00:00 18 /min Univ ersity of [facility] Oxygen saturation in 2021-08-22 13:00:00 95 /min University of Arterial blood by [facility] Pulse oximetry Branch Body temperature 2021-08-22 12:22:00 36.72 [place] [facility] ersity of [facility] Branch Systolic blood 2020-12-17 18:35:00 139 mm[Hg] Univer sity of pressure [place] [facility] Diastolic blood 2020-12-17 18:35:00 87 mm[Hg] Unive rsity of pressure [place] [facility] [place] Heart rate 2020-12-17 18:35:00 110 /min [facility] Body temperature 2020-12-17 18:35:00 37.72 [place] Univ ersity of [place] [facility] Respiratory rate 2020-12-17 18:35:00 18 /min Univ ersity of [place] [facility] Oxygen saturation in 2020-12-17 18:35:00 93 /min University of Arterial blood by [place] [employer] [facility] Pulse oximetry Branch Body height 2020-12-12 08:21:00 180.3 cm [facility] Body weight 2020-12-12 08:21:00 103.42 kg [facility] BMI 2020-12-12 08:21:00 31.80 kg/m2 [facility] Systolic blood 2020-12-17 18:35:00 139 mm[Hg] Univer sity of pressure [place] [facility] Diastolic blood 2020-12-17 18:35:00 87 mm[Hg] Unive rsity of pressure [place] [facility] Heart rate 2020-12-17 18:35:00 110 /min Universi ty of [place] [facility] Body temperature 2020-12-17 18:35:00 37.72 [place] Univ ersity of [place] [facility] Respiratory rate 2020-12-17 18:35:00 18 /min Univ ersity of [place] [facility] Oxygen saturation in 2020-12-17 18:35:00 93 /min University of Arterial blood by [place] [employer] j[facility] Pulse oximetry Branch Body height 2020-12-12 08:21:00 180.3 cm [facility] ty [facility] [place] [facility] Body weight 2020-12-12 08:21:00 103.42 kg [facility] [place] [facility] BMI 2020-12-12 08:21:00 31.80 kg/m2 [facility] [place] [facility] Systolic blood 2020-08-23 19:27:00 140 mm[Hg] Univer sity of pressure [place] [facility] Diastolic blood 2020-08-23 19:27:00 79 mm[Hg] Unive rsity of pressure [place] [facility] Heart rate 2020-08-23 19:27:00 99 /min [facility]i ty [facility] [place] [facility] Body temperature 2020-08-23 19:27:00 36 [place] Univ ersity of [place] [facility] Respiratory rate 2020-08-23 19:27:00 18 /min Univ ersity of [place] [facility] Oxygen saturation in 2020-08-23 19:27:00 93 /min University of Arterial blood by [place] [employer] j[facility] Pulse oximetry Branch Body weight 2020-08-21 07:20:00 104.962 kg [facility] [place] [facility] BMI 2020-08-21 07:20:00 32.27 kg/m2 [facility] [place] [facility] Systolic blood 2020-08-23 19:27:00 140 mm[Hg] Univer sity of pressure [place] [facility] Diastolic blood 2020-08-23 19:27:00 79 mm[Hg] Unive rsity of pressure [place] [facility] Heart rate 2020-08-23 19:27:00 99 /min [facility] ty [facility] [place] [facility] Body temperature 2020-08-23 19:27:00 36 [place] Univ ersity of [place] [facility] Respiratory rate 2020-08-23 19:27:00 18 /min [facility] Oxygen saturation in 2020-08-23 19:27:00 93 /min University Arterial blood by [facility] Pulse oximetry [place] Body weight 2020-08-21 07:20:00 104.962 kg [facility] BMI 2020-08-21 07:20:00 32.27 kg/m2 [facility] Procedures Procedure Date / Time Performing Clinician Source Performed POCT GLUCOSE (AUTOMATED) 2020-12-17 15:42:00 [facility]OL[facility] PANEL 2020-12-17 10:45:00 Paul Bean [facility] (NA, K, CL, CO2, GLUCOSE, [facility] BUN, CREATININE, CA) CBC WITH DIFF 2020-12-17 10:45:00 Paul Bean [facility] POCT GLUCOSE (AUTOMATED) 2020-12-17 02:36:00 HarrisonFavio davisonal [facility] TIBIA FIBULA 2 VW LEFT 2020-12-16 23:38:00 [facility]SE (AUTOMATED) 2020-12-16 23:20:00 Harrison, Premal G Uni versity of [facility] POCT GLUCOSE (AUTOMATED) 2020-12-16 20:10:00 Harrison, Premal G Uni versity of [facility] POCT GLUCOSE (AUTOMATED) 2020-12-16 14:43:00 Harrison, Premal [facility] BASIC METABOLIC PANEL 2020-12-16 13:51:00 Paul Bean [facility] (NA, K, CL, CO2, GLUCOSE, [facility] BUN, CREATININE, CA) CBC WITH DIFF 2020-12-16 13:51:00 Paul Bean [facility] POCT GLUCOSE (AUTOMATED) 2020-12-16 04:00:00 Harrison, Premal G Uni versity of [facility] POCT GLUCOSE (AUTOMATED) 2020-12-16 00:14:00 Harrison, Premal G Uni versity of [facility] CT CHEST PULMONARY 2020-12-15 22:29:38 Paul Bean [facility] ANGIOGRAM [facility] POCT GLUCOSE (AUTOMATED) 2020-12-15 19:26:00 Harrison, Premal G Uni versity of [facility] POCT GLUCOSE (AUTOMATED) 2020-12-15 15:13:00 Harrison, Premal G Uni versity of [facility] HB ECG ROUTINE & RHYTHM 2020-12-15 14:25:27 Cailin Romo [facility] Branch MAGNESIUM 2020-12-15 12:01:00 Paul Bean Sivakumar [facility] BASIC METABOLIC PANEL 2020-12-15 12:01:00 Paul Bean [facility] (NA, K, CL, CO2, GLUCOSE, [facility] BUN, CREATININE, CA) CBC WITH DIFF 2020-12-15 12:01:00 Paul Bean Sivakumar [facility] POCT GLUCOSE (AUTOMATED) 2020-12-15 03:57:00 Harrison, Premal G Uni versity of [facility] POCT GLUCOSE (AUTOMATED) 2020-12-14 23:31:00 Harrison, Premal G Uni versity of [facility] POCT GLUCOSE (AUTOMATED) 2020-12-14 19:08:00 Harrison, Premal G Uni versity of [facility] POCT GLUCOSE (AUTOMATED) 2020-12-14 15:11:00 Harrison, Premal G Uni versity of [facility] POCT GLUCOSE (AUTOMATED) 2020-12-14 02:36:00 Harrison, Premal G Uni versity of [facility] POCT GLUCOSE (AUTOMATED) 2020-12-13 23:32:00 Harrison, Premal G Uni versity of [facility] POCT GLUCOSE (AUTOMATED) 2020-12-13 18:08:00 Harrison, Premal G Uni versity of [facility] BASIC METABOLIC PANEL 2020-12-13 15:39:00 Paul Bean [facility] (NA, K, CL, CO2, GLUCOSE, [facility] BUN, CREATININE, CA) CBC WITH DIFF 2020-12-13 15:39:00 Paul Bean [facility] POCT GLUCOSE (AUTOMATED) 2020-12-13 14:06:00 Harrison, [facility] PO[facility] GLUCOSE (AUTOMATED) 2020-12-13 03:07:00 Harrison, Premal [facility] POCT GLUCOSE (AUTOMATED) 2020-12-12 23:52:00 Harrison, Premal [facility] POCT GLUCOSE (AUTOMATED) 2020-12-12 20:28:00 Harrison, Premal [facility] POCT GLUCOSE (AUTOMATED) 2020-12-12 19:14:00 Harrison, Premal [facility] POCT GLUCOSE (AUTOMATED) 2020-12-12 14:33:00 Harrison, Premal [facility] MAGNESIUM 2020-12-12 08:58:00 Paul Bean Sivakumar [facility] BASIC METABOLIC PANEL 2020-12-12 08:58:00 Paul Bean [facility] (NA, K, CL, CO2, GLUCOSE, [facility] BUN, CREATININE, CA) CBC WITH DIFF 2020-12-12 08:58:00 Paul Bean [facility] US ABDOMEN LIMITED 2020-12-12 06:32:26 Paul Bean [facility] POCT GLUCOSE (AUTOMATED) 2020-12-12 03:40:00 Hunter, Premal G Uni [facility] POCT GLUCOSE (AUTOMATED) 2020-12-12 00:06:00 Hunter, Premal G Uni [facility] XR HIPS 3 VW LEFT 2020-12-11 20:20:00 Paul Bean [facility] HB ECG ROUTINE & RHYTHM 2020-12-11 20:04:06 Cailin Romo [facility] VITAMIN B6, PLASMA 2020-12-11 19:17:00 Paul Bean [facility] POCT GLUCOSE (AUTOMATED) 2020-12-11 19:06:[address] [facility] CREATINE KINASE 2020-12-11 18:22:00 Clarisse [facility] VITAMIN B12, LEVEL 2020-12-11 18:22:00 Paul Bean [facility] FOLATE 2020-12-11 18:22:00 [facility] THYROID STIMULATING 2020-12-11 18:22:00 Cailin Romo [facility] HORMONE [facility] PROCALCITONIN 2020-12-11 18:22:00 [facility] VITAMIN B1 (THIAMINE), 2020-12-11 18:22:00 Paul Bean Sivakumar [facility] WHOLE BLOOD [facility] HEAD WO CONTRAST 2020-12-11 14:07:35 Sweetie Stout [facility] URINALYSIS 2020-12-11 13:44:00 Singer [facility] URINE CULTURE 2020-12-11 13:44:00 Singer [facility] COVID-19 (ID NOW RAPID 2020-12-11 12:31:00 Paco Lacey [facility] TESTING) [facility] LAB ONLY COVID 2020-12-11 12:31:00 Singer [facility] XR CHEST 1 VW 2020-12-11 12:07:24 Singer [facility] BLOOD CULTURE SCREEN 2020-12-11 12:02:00 Paco Lacey [facility] [place] MAGNESIUM 2020-12-11 12:02:00 Paul Bean Sivakumar [facility] FERRITIN SERUM 2020-12-11 12:02:00 Darnell Beanaham Sivakumar [facility] COMP. METABOLIC PANEL 2020-12-11 12:02:00 Paco Lacey [facility] ([id number]) Medical Branch CBC WITH DIFF 2020-12-11 12:02:00 Singer [facility] LACTIC ACID WHOLE BLOOD 2020-12-11 12:02:00 Paco Lacey [facility] BLOOD CULTURE SCREEN 2020-12-11 11:42:[address] [facility] EMERGENCY SERVICES 2020-12-11 06:01:00 Doctor Tabitha [facility] AGREEMENTS AND [place] [facility] AUTHORIZATIONS HOSPITAL ADMISSION 2020-12-11 06:01:00 Doctor Tabitha [facility] Name [facility] HEALTH - OTHER 2020-11-11 06:01:00 Doctor Tabitha [facility] Name [facility] HEALTH - [facility] 2020-10-30 06:01:00 Doctor Tabitha [facility] Name [facility] EXTERNAL PROVIDER RECORDS 2020-09-01 06:01:00 Doctor Tabitha [facility] POCT GLUCOSE (AUTOMATED) 2020-08-23 18:09:[address] [facility] POCT GLUCOSE (AUTOMATED) 2020-08-23 14:14:[address] [facility] MAGNESIUM 2020-08-23 11:18:00 Ramya, [facility] BASIC METABOLIC PANEL 2020-08-23 11:18:00 [facility] (NA, K, CL, CO2, GLUCOSE, Medica l Branch BUN, CREATININE, CA) CBC WITH DIFF 2020-08-23 11:18:00 [facility] [place] [facility] POCT GLUCOSE (AUTOMATED) 2020-08-23 10:21:00 [facility] ([facility]) 2020-08-23 05:55:00 Kelly Washingtonity [facility] POCT GLUCOSE (AUTOMATED) 2020-08-23 03:00:00 Kelly Washingtonity [facility] POCT GLUCOSE (AUTOMATED) 2020-08-22 23:38:00 [facility] PO[facility] GLUCOSE (AUTOMATED) 2020-08-22 19:04:00 [facility] POCT GLUCOSE (AUTOMATED) 2020-08-22 13:49:[address] [facility] MAGNESIUM 2020-08-22 10:10:00 Ramya [facility] HEPATIC FUNCTION PANEL 2020-08-22 10:10:00 Jill Gauila [facility] ([id number]) (ALB,T.PRO,BILI Medical Branch T,BU/BC,ALT,AST,ALK PHOS) BASIC METABOLIC PANEL 2020-08-22 10:10:00 Shiloh [facility] (NA, K, CL, CO2, GLUCOSE, Medica l Branch BUN, CREATININE, CA) LIPID PANEL ([id number])(TOTAL 2020-08-22 10:10:00 Shiloh [facility] TRIGLYCERIDES, HDL) CBC WITH DIFF 2020-08-22 10:10:00 Shiloh [facility] POCT GLUCOSE (AUTOMATED) 2020-08-22 10:10:00 Kelly [place] [...] [facility] ETHANOL 2020-08-21 12:35:00 [facility] ACTIVATED PARTIAL 2020-08-21 12:35:00 Padmini [facility] THRMPLAS [facility] GALV ONLY - SYPHILIS 2020-08-21 12:35:00 Padmini [facility] IGG/IGM [facility] LACTATE DEHYDROGENASE 2020-08-21 10:09:00 Ramya, [facility] GALV/CLC ONLY - URINE 2020-08-21 10:09:00 Jos Quiroz [facility] DRUG (IMMUNOASSAY) - 4 ER Medica l Branch PANEL URINALYSIS 2020-08-21 10:09:00 Ramya, [facility] URINE CULTURE 2020-08-21 10:09:00 Shiloh, [facility] PROCALCITONIN 2020-08-21 10:09:00 Ramya, [facility] POCT GLUCOSE (AUTOMATED) 2020-08-21 09:41:[address] [facility] PROTHROMBIN TIME / INR 2020-08-21 08:32:00 [place], [facility] ACTIVATED PARTIAL 2020-08-21 08:32:00 Sh[place], [facility] THRMPLAS [facility] C-REACTIVE PROTEIN 2020-08-21 08:31:00 Shil[place], [facility] HEPATIC FUNCTION PANEL 2020-08-21 08:31:00 Shiloh, [facility] ([id number]) (ALB,T.PRO,BILI Medical [place] T,BU/BC,ALT,AST,ALK PHOS) BASIC METABOLIC PANEL 2020-08-21 08:31:00 Ramya, [facility] (NA, K, CL, CO2, GLUCOSE, [facility] [place] BUN, CREATININE, CA) SEDIMENTATION RATE 2020-08-21 08:31:00 [place]il[place], [facility] CBC WITH DIFF 2020-08-21 08:31:00 Ramya, [facility] GLYCOSYLATED HEMOGLOBIN 2020-08-21 08:31:00 [place], [facility] (A1C) [facility] HIV 1/2 AG-AB WITH REFLEX 2020-08-21 08:31:00 Kelly [facility] COVID-19 (ID NOW RAPID 2020-08-21 08:20:00 [place], [facility] TESTING) Medical Branch LAB ONLY COVID 2020-08-21 08:20:00 Ramya, [facility] Encounters Start End Encounter Admission Attending Care Care Encounter Source Date/Time Date/Time Type Type Clinicians Facility Department ID 2020-08-21 Inpatient Shayy [facility] [id number] Univers 01:07:00 KELLY cantu [facility] 2021-08-22 2021-08-22 Emergency [id number] Univers 06:21:00 08:02:00 SWEETIE cantu [facility] 2021-08-22 2021-08-22 Emergency [facility] [id number] Univers 06:21:00 08:02:00 Sweetie OREN [id number] i ty [place] [id number] [facility] 084 [place] 2021-08-09 2021-08-09 Outpatient ZAKI, [facility] [id number] [facility] 10:27:03 10:27:03 ADRIANA lopez of Medicin e 2020-12-28 2020-12-28 Telephone [facility] [id number] 00:00:00 00:00:00 Calvin H PRIMARY [id number] CARE 4.2.7.2.686 PAVILLION [id number] 2020-12-28 2020-12-28 Telephone [facility] 1.2.840.114 [id number] Univers 00:00:00 00:00:00 Calvin H PRIMARY [id number] it y of CARE [id number] [facility] [id number] Ga dical 220 Branch 2020-12-19 2020-12-19 Transition Tuan Peters 1.2.840.114 [id number] 00:00:00 00:00:00 of Care Ruchi Braswell [id number] [place] 4.2.7.2.686 [id number] 2020-12-19 2020-12-19 Transition Tuan Peters 1.2.840.114 [id number] Univers 00:00:00 00:00:00 of Care Ruchi Braswell [id number] it y [place] [id number] [facility] 403 Branch 2020-12-11 2020-12-17 [facility] Paco Lacey 1.2.840.1 [id number] 05:11:00 16:00:00 Encounter Rene Harrison Monique [id number] [facility] 4.2.7.2.686 [id number] [facility] 2020-12-11 2020-12-17 [facility] 1.2.840.1 [id number] [facility] 05:11:00 16:00:00 Encounter Rene Harrison [place] [id number] ity of [facility] 4.2.7.2.686 [place] [id number] [place] 497846 [place] 2020-12-11 2020-12-11 Emergency X [facility] ERT [id number] Univers 05:11:00 05:11:00 [facility] 2020-11-16 2020-11-16 Emergency X [facility] ERT [id number] Univers 09:31:00 09:31:00 [facility] 2020-11-11 2020-11-11 Orders Doctor BASILIA 1.2.840.114 [id number] 00:00:00 00:00:00 Only Unassigned, MONIQUE [id number] [place] [facility] 4.2.7.2.686 [id number] 2020-11-11 2020-11-11 Orders Doctor BASILIA 1.2.840.114 [id number] Univers 00:00:00 00:00:00 Only Unassigned, MONIQUE 350.1.13.10 ity of [place] [facility] 4.2.7.2.686 Jeff as [id number] [facility] 009 Branch 2020-11-07 2020-11-07 Telephone Wilder [facility] [id number] 00:00:00 00:00:00 Angi Tobin 350.1.13.10 [place] 4.2.7.2.686 Professio [id number] [facility] 2020-11-07 2020-11-07 Telephone [facility] [id number] [facility] 00:00:00 00:00:00 Angi Tobin 350.1.13.10 ity of [place]2.7.2.[place] Profess[place] [phone] [place] 408469 [facility] 2020-10-30 2020-10-30 Orders Doctor BASILIA 1.2.840.114 [id number] 00:00:00 00:00:00 Only Unassigned, MONIQUE 350.1.13.10 [place] [facility] 4.2.7.2.686 [id number] [facility] 2020-10-30 2020-10-30 Orders Doctor BASILIA 1.2.840.114 [id number] Univers 00:00:00 00:00:00 Only Unassigned, MONIQUE 350.1.13.10 ity of [place] [facility] 4.2.7.2.686 Jeff as [id number] [address] 2020-09-26 2020-09-26 [facility] 1.2.840.114 [id number] 00:00:00 00:00:00 [facility] [id number] CLINICS 4.2.7.2.686 [id number] [facility] 2020-09-26 2020-09-26 [facility] 1.2.840.114 [id number] Univers 00:00:00 00:00:00 [facility] 350.1.13.10 i ty of CLINICS [place].2.[place] [id number] [address] 2020-09-01 2020-09-01 Orders Doctor BASILIA 1.2.840.114 [id number] 00:00:00 00:00:00 Only Unassigned, MONIQUE 350.1.13.10 [place] [facility] 4.2.7.2.686 [id number] [id number] 2020-09-01 2020-09-01 Orders Doctor CUI 1.2.840.114 [id number] Univers 00:00:00 00:00:00 Only Unassigned, MONIQUE 350.1.13.10 ity of [facility] 4.2.7.2.686 Jeff as [phone] [facility] 009 Branch 2020-08-25 2020-08-25 Transition Tuan Peters 1.2.840.114 [id number] 00:00:00 00:00:00 of Care Ruchi Braswell 350.1.13.10 [place] 4.2.7.2.686 [id number] [facility] 2020-08-25 2020-08-25 Transition Tuan Peters 1.2.840.114 [id number] [facility] 00:00:00 00:00:00 of Care Ruchi Garciay 350.1.13.10 it y of [place]2.7.2.[place] [id number] [address] Branch 2020-08-21 2020-08-23 [facility] Ayleen 1.2.840.114 [id number] 01:07:00 18:35:00 Encounter Kelly Amaya 350.1.13.10 [facility] 4.2.7.2.686 [id number] [facility] 2020-08-21 2020-08-23 [facility] 1. 2.840.114 [id number] [facility] 01:07:00 18:35:00 Encounter Mukul Gallardo 350.1.13. [address] [facility] 4.2.7.2.686 [place] as [id number] [address] Results Test Description Test Time Test Comments Results Result Comments Source POCT GLUCOSE (AUTOMATED) 2020-12-17 15:43:35 Test Item Value Reference Range Interpretation Comme nts POCT GLU (test code = 8501540579) 129 mg/dL 70-110 H Lab Interpretation (test code = 36272-1) Abnormal [facility] METABOLIC PANEL (NA, K, CL, CO2, GLUCOSE, BUN, CREATININE, CA)2020-12-17 11:45:07 Test Item Value Reference Range Interpretation Comments NA (test code = 137 mmol/L 135-145 5194231015) K (test code = 3.5 mmol/L 3.5-5.0 8349366004) CL (test code = 103 mmol/L 98-108 5513108359) CO2 TOTAL (test code = 26 mmol/L 23-31 3251909112) AGAP (test code = 2-16 3767508745) BUN (test code = 11 mg/dL 7-23 2739765450) GLUCOSE (test code = 175 mg/dL 70-110 H 3708009253) CREATININE (test code = 0.62 mg/dL 0.60-1.25 1696626133) CALCIUM (test code = 9.0 mg/dL 8.6-10.6 4720805748) eGFR Calculation mL/min/1.73m2 (Non-) (test code = 6592261581) eGFR Calculation mL/min/1.73m2 () (test code = 8377137708) JAMES (test code = JAMES) Association of [...] tests). Lab Interpretation Abnormal (test code = 34209-5) [facility] WITH [id number] 11:07:27 Test Item Value Reference Range Interpretation [...] RDW-SD (test code = 45.2 fL 38.5-51.6 39401-9) RDW-CV (test code = 16.9 % 12.1-15.4 H 788-0) PLT (test code = See_Comment H [Automated 777-3) message] The sy stem which generated this result transmitted reference range : 150 - 328 10*3/ ?L. The reference r torito was not used to interpret this result as normal/abnormal . MPV (test code = 8.1 fL 9.8-13.0 L 10603-2) NRBC/100 WBC (test See_Comment [Automat ed code = 0380932993) message] The system which generated this result transmitted reference range : 0.0 - 10.0 /100 WBCs. The refer ence range was not u sed to interpret th is result as normal/abnormal . NRBC x10^3 (test code <0.01 See_Comment [Auto mated = 5174230538) message] The s ystem which generated this result transmitted reference range : 10*3/?L. The reference range was not used to interpret this result as normal/abnormal . GRAN MAT (NEUT) % 72.8 % (test code = 770-8) IMM GRAN % (test code 0.60 % = 7815213368) LYMPH % (test code = 18.4 % 736-9) MONO % (test code = 5.7 % 5905-5) EOS % (test code = 1.8 % 713-8) BASO % (test code = 0.7 % 706-2) GRAN MAT x10^3(ANC) 8.23 10*3/uL 1.99-6.95 H (test code = 3948959742) IMM GRAN x10^3 (test 0.07 10*3/uL 0.00-0.06 H code = 0313341641) LYMPH x10^3 (test code 2.08 10*3/uL 1.09-3.23 = 731-0) MONO x10^3 (test code 0.65 10*3/uL 0.36-1.02 = 742-7) EOS x10^3 (test code = 0.20 10*3/uL 0.06-0.53 711-2) BASO x10^3 (test code 0.08 10*3/uL 0.01-0.09 = 704-7) Lab Interpretation Abnormal (test code = 26584-7) [facility]17 06:03:38 Test Item Value Reference Range Interpretation Comments POCT GLU (test code = 9735118242) 75 mg/dL 70-110 Lab Interpretation (test code = Normal 97966-8) [facility], [id number] 00:01:00 Test Item Value Reference Range Interpretation Comments VIT B6 (test code = 13.1 nmol/L 20.0-125.0 L INTERPRE TIVE 70814-4) INFORMATION: Vi tamin B6 (Pyridoxal 5-Phosphate) Pyridoxal 5'-phosphate me asured in a specimen collected follo wing an 8-hour or overnight fast accurately clara cates vitamin B6 nutritional sta tus. Non-fasting spe cimen concentration reflects recent vitamin intake. This test was develo ped and its perform ance characteristics determined by [facility]. I t has not been cleare d or approved by the [place] Food and Drug Administration. This test was perfor med in a CLIA certifie d laboratory and is intended for cl inical purposes.Perfor med By: [employer] [place] [address] [id number] Director: Namraat Klein MD Lab Interpretation Abnormal (test code = 48431-5) [facility] TIB[facility] FIBUL[facility] 2 VW [id number] 23:57:09 Tricompartmental knee joint osteoarthrosis.XR TIBIA FIBULA [...] Interpretation Comments POCT GLU (test code = 4753164942) 114 mg/dL 70-110 H Lab Interpretation (test code = Abnormal 93534-5) General acute hospital GLUCOSE (AUTOMATED)2020-12-16 20:12:00 Test Item Value Reference Range Interpretation Comments POCT GLU (test code = 1204311412) 105 mg/dL 70-110 Lab Interpretation (test code = Normal 60040-6) General acute hospital GLUCOSE (AUTOMATED)2020-12-16 14:44:00 Test Item Value Reference Range Interpretation Comments POCT GLU (test code = 2574868841) 153 mg/dL 70-110 H Lab Interpretation (test code = Abnormal 03635-5) [facility] METABOLIC PANEL (NA, K, CL, CO2, GLUCOSE, BUN, CREATININE, CA)2020-12-16 14:23:00 Test Item Value Reference Range Interpretation Comments NA (test code = 138 mmol/L 135-145 2256147547) K (test code = 3.4 mmol/L 3.5-5.0 L 7471734218) CL (test code = 100 mmol/L 98-108 2765159686) CO2 TOTAL (test code = 31 mmol/L 23-31 6104884661) AGAP (test code = 2-16 6171743613) BUN (test code = 11 mg/dL 7-23 6473224266) GLUCOSE (test code = 162 mg/dL 70-110 H 7644941265) CREATININE (test code = 0.64 mg/dL 0.60-1.25 4865245575) CALCIUM (test code = 8.9 mg/dL 8.6-10.6 9675276404) eGFR Calculation mL/min/1.73m2 (Non-) (test code = 8928513564) eGFR Calculation mL/min/1.73m2 () (test code = 7300372561) JAMES (test code = JAMES) Association of [...] tests). Lab Interpretation Abnormal (test code = 20728-6) [facility] WITH [id number] 14:05:00 Test Item Value Reference Range Interpretation [...] RDW-SD (test code = 45.4 fL 38.5-51.6 44325-4) RDW-CV (test code = 17.0 % 12.1-15.4 H 788-0) PLT (test code = See_Comment H [Automated 777-3) message] The sy stem which generated this result transmitted reference range : 150 - 328 10*3/ ?L. The reference r torito was not used to interpret this result as normal/abnormal . MPV (test code = 8.0 fL 9.8-13.0 L 01303-6) NRBC/100 WBC (test See_Comment [Automat ed code = 2187499727) message] The system which generated this result transmitted reference range : 0.0 - 10.0 /100 WBCs. The refer ence range was not u sed to interpret th is result as normal/abnormal . NRBC x10^3 (test code <0.01 See_Comment [Auto mated = 7215265481) message] The s ystem which generated this result transmitted reference range : 10*3/?L. The reference range was not used to interpret this result as normal/abnormal . GRAN MAT (NEUT) % 70.0 % (test code = 770-8) IMM GRAN % (test code 0.70 % = 4790891074) LYMPH % (test code = 20.5 % 736-9) MONO % (test code = 7.1 % 5905-5) EOS % (test code = 1.0 % 713-8) BASO % (test code = 0.7 % 706-2) GRAN MAT x10^3(ANC) 9.44 10*3/uL 1.99-6.95 H (test code = 8640813169) IMM GRAN x10^3 (test 0.09 10*3/uL 0.00-0.06 H code = 2866646771) LYMPH x10^3 (test code 2.76 10*3/uL 1.09-3.23 = 731-0) MONO x10^3 (test code 0.96 10*3/uL 0.36-1.02 = 742-7) EOS x10^3 (test code = 0.13 10*3/uL 0.06-0.53 711-2) BASO x10^3 (test code 0.10 10*3/uL 0.01-0.09 H = 704-7) Lab Interpretation Abnormal (test code = 50945-3) [facility] Center[facility] - Peripheral # [id number] 13:01:00 Test Item Value Reference Range Interpretation Comments Blood Culture-Aerobic No organisms No growth Previo us (test code = 58585-2) isolated prelim inary verified result was Culture In Progress on 12/11/2020 at 100 1 CSTPrevious preliminary verified result was No growth a t 24 hours on 12/12/2020 at 070 1 CSTPrevious preliminary verified result was No growth a t 48 hours on 12/13/2020 at 070 1 CSTPrevious preliminary verified result was No growth a t 72 hours on 12/14/2020 at 070 1 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 Blood No organisms No growth Previous Culture-Anaerobic isolated preliminar y (test code = 56035-6) verifi ed result was Culture In Progress on 12/11/2020 at 100 1 CSTPrevious preliminary verified result was No growth a t 24 hours on 12/12/2020 at 070 1 CSTPrevious preliminary verified result was No growth a t 48 hours on 12/13/2020 at 070 1 CSTPrevious preliminary verified result was No growth a t 72 hours on 12/14/2020 at 070 1 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 Lab Interpretation Normal (test code = 78646-1) [facility] Culture - Peripheral # [id number] 13:01:00 Test Item Value Reference Range Interpretation Comments Blood Culture-Aerobic No organisms No growth Previo us (test code = 93615-3) isolated prelim inary verified result was Culture In Progress on 12/11/2020 at 100 1 CSTPrevious preliminary verified result was No growth a t 24 hours on 12/12/2020 at 070 1 CSTPrevious preliminary verified result was No growth a t 48 hours on 12/13/2020 at 070 1 CSTPrevious preliminary verified result was No growth a t 72 hours on 12/14/2020 at 070 1 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 Blood No organisms No growth Previous Culture-Anaerobic isolated preliminar y (test code = 97977-7) verifi ed result was Culture In Progress on 12/11/2020 at 100 1 CSTPrevious preliminary verified result was No growth a t 24 hours on 12/12/2020 at 070 1 CSTPrevious preliminary verified result was No growth a t 48 hours on 12/13/2020 at 070 1 CSTPrevious preliminary verified result was No growth a t 72 hours on 12/14/2020 at 070 1 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 No interval change in [...] of intra and extrahepatic biliary du ctal dilatation.[facility] 2020-[facility]15 19:28:00 Test Item Value Reference Range Interpretation Comments POCT GLU (test code = 0896035657) 140 mg/dL 70-110 H Lab Interpretation (test code = Abnormal 66189-6) [facility]2021-[facility] 15:26:00 Test Item Value Reference Range Interpretation Comments MAGNESIUM (test code = 0580772585) 2.2 mg/dL 1.7-2.4 Lab Interpretation (test code = Normal 09811-6) [facility]2020-12-15 15:15:00 Test Item Value Reference Range Interpretation Comments POCT GLU (test code = 9896048286) 181 mg/dL 70-110 H Lab Interpretation (test code = Abnormal 71107-2) [facility] (NA, K, CL, CO2, GLUCOSE, BUN, CREATININE, CA)2020-12-15 13:07:00 Test Item Value Reference Range Interpretation Comments NA (test code = 136 mmol/L 135-145 3965533615) K (test code = 3.6 mmol/L 3.5-5.0 1622714687) CL (test code = 96 mmol/L 98-108 L 2161963137) CO2 TOTAL (test code = 29 mmol/L 23-31 5963214460) AGAP (test code = 2-16 9883197697) BUN (test code = 12 mg/dL 7-23 7699828266) GLUCOSE (test code = 183 mg/dL 70-110 H 2819219869) CREATININE (test code = 0.70 mg/dL 0.60-1.25 8753479380) CALCIUM (test code = 9.2 mg/dL 8.6-10.6 2549697752) eGFR Calculation mL/min/1.73m2 (Non-) (test code = 6119682638) eGFR Calculation mL/min/1.73m2 () (test code = 7257756397) JAMES (test code = JAMES) Association of [...] tests). Lab Interpretation Abnormal (test code = 95179-0) [facility] WITH [id number] 12:32:00 Test Item Value Reference Range Interpretation [...] RDW-SD (test code = 44.4 fL 38.5-51.6 24977-7) RDW-CV (test code = 17.7 % 12.1-15.4 H 788-0) PLT (test code = See_Comment H [Automated 777-3) message] The system which generated this result transmit ronan reference range : 150 - 328 10*3/ ?L. The reference range was not u sed to interpret th is result as normal/abnormal . MPV (test code = 8.1 fL 9.8-13.0 L 62026-8) NRBC/100 WBC (test See_Comment [Automat ed code = 9102763860) message] The system which generated this result transmit ronan reference range : 0.0 - 10.0 /100 WBCs. The reference range was not used to interpret this result as normal/abnormal . NRBC x10^3 (test code <0.01 See_Comment [Auto mated = 9255567483) message] The system which generated this result transmit ronan reference range : 10*3/?L. The reference range was not used to interpret this result as normal/abnormal . GRAN MAT (NEUT) % 74.5 % (test code = 770-8) IMM GRAN % (test code 0.70 % = 4642490664) LYMPH % (test code = 17.4 % 736-9) MONO % (test code = 6.8 % 5905-5) EOS % (test code = 0.2 % 713-8) BASO % (test code = 0.4 % 706-2) GRAN MAT x10^3(ANC) 11.99 10*3/uL 1.99-6.95 H (test code = 5495885961) IMM GRAN x10^3 (test 0.11 10*3/uL 0.00-0.06 H code = 5680091773) LYMPH x10^3 (test code 2.80 10*3/uL 1.09-3.23 = 731-0) MONO x10^3 (test code 1.10 10*3/uL 0.36-1.02 H = 742-7) EOS x10^3 (test code = 0.03 10*3/uL 0.06-0.53 L 711-2) BASO x10^3 (test code 0.06 10*3/uL 0.01-0.09 = 704-7) Lab Interpretation Abnormal (test code = 26491-7) General acute hospital GLUCOSE (AUTOMATED)2020-12-15 04:16:00 Test Item Value Reference Range Interpretation Comments POCT GLU (test code = 9838939531) 200 mg/dL 70-110 H Lab Interpretation (test code = Abnormal 96781-2) [facility] CenterVITAMIN B1 (THIAMINE), WHOLE [id number] 00:30:00 Test Item Value Reference Range Interpretation Comments Vitamin B1, Whole 136 nmol/L 70-180 INTERPRETI VE INFORMATION: Blood (test code = Vitamin B 1, Whole Blood 59029-7) This assay júnoir ures the concentration o f thiamine diphosphate (TD P), the primary active form of vitamin B1. Nick roximately 90 percent of v itamin B1 present in whol e blood is TDP. Thiamine a nd thiamine monoph osphate, which comprise the remaining 10 pe rcent, are not measured. T his test was developed a nd its performance characteristics determined by [facility]. I t has not been cleared or approved by the [place] Food and Drug Administration. This test was performed i n a CLIA certified labor atory and is intended for clinical purposes.Perfor med By: [facility] [place] [address] [id number] aboratory Director: Namrata Klein MD General acute hospital GLUCOSE (AUTOMATED)2020-12-14 23:35:00 Test Item Value Reference Range Interpretation Comments POCT GLU (test code = 5270637596) 151 mg/dL 70-110 H Lab Interpretation (test code = Abnormal 36255-1) General acute hospital GLUCOSE (AUTOMATED)2020-12-14 19:19:00 Test Item Value Reference Range Interpretation Comments POCT GLU (test code = 6573517869) 193 mg/dL 70-110 H Lab Interpretation (test code = Abnormal 27351-2) General acute hospital GLUCOSE (AUTOMATED)2020-12-14 15:22:00 Test Item Value Reference Range Interpretation Comments POCT GLU (test code = 5244645363) 221 mg/dL 70-110 H Lab Interpretation (test code = Abnormal 24917-1) General acute hospital GLUCOSE (AUTOMATED)2020-12-14 02:37:00 Test Item Value Reference Range Interpretation Comments POCT GLU (test code = 7133260652) 210 mg/dL 70-110 H Lab Interpretation (test code = Abnormal 86887-5) General acute hospital GLUCOSE (AUTOMATED)2020-12-13 23:33:00 Test Item Value Reference Range Interpretation Comments POCT GLU (test code = 9854147519) 182 mg/dL 70-110 H Lab Interpretation (test code = Abnormal 87466-4) General acute hospital GLUCOSE (AUTOMATED)2020-12-13 18:09:00 Test Item Value Reference Range Interpretation Comments POCT GLU (test code = 3537637092) 150 mg/dL 70-110 H Lab Interpretation (test code = Abnormal 53862-1) [facility] METABOLIC PANEL (NA, K, CL, CO2, GLUCOSE, BUN, CREATININE, CA)2020-12-13 16:27:00 Test Item Value Reference Range Interpretation Comments NA (test code = 136 mmol/L 135-145 5350563603) K (test code = 3.7 mmol/L 3.5-5.0 9930179620) CL (test code = 96 mmol/L 98-108 L 2008109313) CO2 TOTAL (test code = 29 mmol/L 23-31 2498990089) AGAP (test code = 2-16 1579566261) BUN (test code = 6 mg/dL 7-23 L 5551777634) GLUCOSE (test code = 212 mg/dL 70-110 H 3528558318) CREATININE (test code = 0.61 mg/dL 0.60-1.25 5576556117) CALCIUM (test code = 9.5 mg/dL 8.6-10.6 3857292213) eGFR Calculation mL/min/1.73m2 (Non-) (test code = 0840226836) eGFR Calculation mL/min/1.73m2 () (test code = 2720731011) JAMES (test code = JAMES) Association of [...] tests). Lab Interpretation Abnormal (test code = 04282-2) [facility] WITH [id number] 16:10:00 Test Item Value Reference Range Interpretation Comments WBC (test code = See_Comment H [Automated 7790-2) message] The sy stem which generated this result transmitted reference range : 4.20 - 10.70 10*3/?L. The reference range was not used to interpret this result as normal/abnormal . RBC (test code = See_Comment H [Automated 889-8) message] The sy stem which generated this [...] RDW-SD (test code = 43.3 fL 38.5-51.6 47332-3) RDW-CV (test code = 16.2 % 12.1-15.4 H 788-0) PLT (test code = See_Comment H [Automated 777-3) message] The sy stem which generated this result transmitted reference range : 150 - 328 10*3/ ?L. The reference r torito was not used to interpret this result as normal/abnormal . MPV (test code = 8.2 fL 9.8-13.0 L 45059-6) NRBC/100 WBC (test See_Comment [Automat ed code = 4430642854) message] The system which generated this result transmitted reference range : 0.0 - 10.0 /100 WBCs. The refer ence range was not u sed to interpret th is result as normal/abnormal . NRBC x10^3 (test code <0.01 See_Comment [Auto mated = 9565673282) message] The s ystem which generated this result transmitted reference range : 10*3/?L. The reference range was not used to interpret this result as normal/abnormal . GRAN MAT (NEUT) % 86.2 % (test code = 770-8) IMM GRAN % (test code 0.70 % = 5080194901) LYMPH % (test code = 10.2 % 736-9) MONO % (test code = 2.5 % 5905-5) EOS % (test code = 0.1 % 713-8) BASO % (test code = 0.3 % 706-2) GRAN MAT x10^3(ANC) 9.61 10*3/uL 1.99-6.95 H (test code = 4696803915) IMM GRAN x10^3 (test 0.08 10*3/uL 0.00-0.06 H code = 7562098400) LYMPH x10^3 (test code 1.14 10*3/uL 1.09-3.23 = 731-0) MONO x10^3 (test code 0.28 10*3/uL 0.36-1.02 L = 742-7) EOS x10^3 (test code = <0.03 0.06-0.53 L 711-2) BASO x10^3 (test code 0.03 10*3/uL 0.01-0.09 = 704-7) Lab Interpretation Abnormal (test code = 44265-2) [facility]2020-12-13 14:16:00 Test Item Value Reference Range Interpretation Comments POCT GLU (test code = 4903130774) 236 mg/dL 70-110 H Lab Interpretation (test code = Abnormal 66190-9) [facility] Center[facility] ONLY COVID [id number] 04:58:00COVID DMT InterpretationInterpretation/Recommendations: Molecular NAAT Tests for [...] COVID-19 testing the patient has had at [facility], including molecular NAAT testing (more commonly known as PCR testing and Rapid ID Now testing) and antibody testing. It does not take into account any testing that a patient has had outside of the [facility] medical record. [facility] LABORATORY SERVICESCOVID Resu rywDFWV-UvW-0 Rapid ID NOW (no units) ? ? Date ? Value ? 12/11/2020 ? Not Detected ? ? ? 11/16/2020 ? Not Detected ? ? ? 08/21/2020 ?Not Detected ? [facility] 2020-12-13 03:11:00 Test Item Value Reference Range Interpretation Comments POCT GLU (test code = 0548086719) 171 mg/dL 70-110 H Lab Interpretation (test code = Abnormal 76072-0) General acute hospital GLUCOSE (AUTOMATED)2020-12-13 00:00:00 Test Item Value Reference Range Interpretation Comments POCT GLU (test code = 4291384657) 118 mg/dL 70-110 H Lab Interpretation (test code = Abnormal 58871-4) General acute hospital GLUCOSE (AUTOMATED)2020-12-12 20:29:00 Test Item Value Reference Range Interpretation Comments POCT GLU (test code = 5509320912) 173 mg/dL 70-110 H Lab Interpretation (test code = Abnormal 62351-8) [facility] CenterUS ABDOMEN [id number] 19:56:17 1. ?Hepatic steatosis. However, limited evaluation [...] main portal veinwasevaluated with color Doppler imaging. Manager Field Service images were obtainedfor the record. COMPARISON: Ultrasound [...] normal where visualized. SPLEEN:No images were obtained. [facility], Radiant Results Inft User - 12/12/2020 1:57 PM CSTEXAM: US ABDOMEN LIMITEDHISTORY: 70 years-old male with RUQ ultrasound to assess for common bileduct dilation .TECHNIQUE: Limited abdominal ultrasound focused on the liver, biliarysystem, pancreas, and spleen was performed. The main portal vein wasevaluated with color Doppler imaging. Manager Field Service images were obtainedfor the record.COMPARISON: Ultrasound abdomen [...] this study and agree with the abovereport. [facility]2020-12-12 19:24:00 Test Item Value Reference Range Interpretation Comments POCT GLU (test code = 8619433449) 230 mg/dL 70-110 H Lab Interpretation (test code = Abnormal 93447-1) [facility]XR CHEST 1 [id number] 15:16:46 Low lung volumes with mild perihilar [...] have reviewed thisstudy and agree with theabove report.[facility]2020-12-12 14:34:00 Test Item Value Reference Range Interpretation Comments POCT GLU (test code = 7425926602) 225 mg/dL 70-110 H Lab Interpretation (test code = Abnormal 23026-1) [facility] CenterURINE [id number] 13:28:00 Test Item Value Reference Range Interpretation Comments URINE CULTURE (test < 10,000 CFU/mL mixed code = 630-4) aerobic organisms - suggests endogenous microbial contamination [facility] (NA, K, CL, CO2, GLUCOSE, BUN, CREATININE, CA)2020-12-12 10:05:00 Test Item Value Reference Range Interpretation Comments NA (test code = 136 mmol/L 135-145 4965022033) K (test code = 3.5 mmol/L 3.5-5.0 5064940503) CL (test code = 100 mmol/L 98-108 2290977043) CO2 TOTAL (test code = 31 mmol/L 23-31 1995881571) AGAP (test code = 2-16 6648201888) BUN (test code = 7 mg/dL 7-23 5368126487) GLUCOSE (test code = 259 mg/dL 70-110 H 3625406471) CREATININE (test code = 0.63 mg/dL 0.60-1.25 5720314044) CALCIUM (test code = 8.5 mg/dL 8.6-10.6 L 6008837093) eGFR Calculation mL/min/1.73m2 (Non-) (test code = 0022761550) eGFR Calculation mL/min/1.73m2 () (test code = 3044994791) JAMES (test code = JAMES) Association of [...] tests). Lab Interpretation Abnormal (test code = 47148-6) [facility] CenterMagnesium [id number] 10:05:00 Test Item Value Reference Range Interpretation Comments MAGNESIUM (test code = 9971584445) 1.9 mg/dL 1.7-2.4 Lab Interpretation (test code = Normal 53044-6) [facility] with [id number] 09:48:00 Test Item Value Reference Range Interpretation Comments WBC (test code = See_Comment [Automated 2012-2) message] The sy stem which generated this result transmitted reference range : 4.20 - 10.70 10*3/?L. The reference range was not used to interpret this result as normal/abnormal . RBC (test code = See_Comment [Automated 012-8) message] The sy stem which generated this [...] RDW-SD (test code = 46.0 fL 38.5-51.6 31131-5) RDW-CV (test code = 16.1 % 12.1-15.4 H 788-0) PLT (test code = See_Comment H [Automated 777-3) message] The sy stem which generated this result transmitted reference range : 150 - 328 10*3/ ?L. The reference r torito was not used to interpret this result as normal/abnormal . MPV (test code = 8.6 fL 9.8-13.0 L 97700-6) NRBC/100 WBC (test See_Comment [Automat ed code = 7034121090) message] The system which generated this result transmitted reference range : 0.0 - 10.0 /100 WBCs. The refer ence range was not u sed to interpret th is result as normal/abnormal . NRBC x10^3 (test code <0.01 See_Comment [Auto mated = 9876928285) message] The s ystem which generated this result transmitted reference range : 10*3/?L. The reference range was not used to interpret this result as normal/abnormal . GRAN MAT (NEUT) % 70.2 % (test code = 770-8) IMM GRAN % (test code 0.30 % = 8005421790) LYMPH % (test code = 18.8 % 736-9) MONO % (test code = 5.0 % 5905-5) EOS % (test code = 5.2 % 713-8) BASO % (test code = 0.5 % 706-2) GRAN MAT x10^3(ANC) 6.05 10*3/uL 1.99-6.95 (test code = 4075841141) IMM GRAN x10^3 (test 0.03 10*3/uL 0.00-0.06 code = 3289381603) LYMPH x10^3 (test code 1.62 10*3/uL 1.09-3.23 = 731-0) MONO x10^3 (test code 0.43 10*3/uL 0.36-1.02 = 742-7) EOS x10^3 (test code = 0.45 10*3/uL 0.06-0.53 711-2) BASO x10^3 (test code 0.04 10*3/uL 0.01-0.09 = 704-7) Lab Interpretation Abnormal (test code = 40426-4) [facility] acute hospital GLUCOSE (AUTOMATED)2020-12-12 03:42:00 Test Item Value Reference Range Interpretation Comments POCT GLU (test code = 196 mg/dL 70-110 H Notifi ed Provider 4833104662) Lab Interpretation (test Abnormal code = 92069-1) [facility] CenterFOLATE2021-[facility] 02:24:00 Test Item Value Reference Range Interpretation Comments FOLATE SER (test code = 8763665219) 5.8 ng/mL 3.0-20.0 Lab Interpretation (test code = Normal 51485-7) [facility] CenterVITAMIN B12, [id number] 00:55:00 Test Item Value Reference Range Interpretation Comments VIT B12 (test code = 844 pg/mL 240-930 3958475419) JAMES (test code = JAMES) Biotin has been reported to cause a positive bias, interpret results relative to patient's use of biotin. Lab Interpretation (test Normal code = 26081-6) General acute hospital GLUCOSE (AUTOMATED)2020-12-12 00:14:00 Test Item Value Reference Range Interpretation Comments POCT GLU (test code = 3666480784) 164 mg/dL 70-110 H Lab Interpretation (test code = Abnormal 46906-9) [facility] CenterCREATINE [id number] 23:42:00 Test Item Value Reference Range Interpretation Comments CK (test code = 3981514287) <20 33-194 L Lab Interpretation (test code = Abnormal 14677-7) [facility] CenterTHYROID STIMULATING [id number] 23:17:00 Test Item Value Reference Range Interpretation Comments TSH (test code = See_Comment Biotin has been 8848728532) reported to cau se a negative bias, interpret resul ts relative to pat ient's use of biotin. [Automated mess age] The system whic h generated this result transmitted ref erence range: 0.45 - 4 .70 mIU/L. The refe rence range was not u sed to interpret this result as normal/abnor mal. Lab Interpretation (test Normal code = 13351-9) [facility] CenterXR HIPS 3 VW [id number] 21:41:53No appreciable fracture lines. RL: 6200 ICAL [...] osseous erosions.IMPRESSIONNo appreciable fracture lines.RL: 6200 [facility]PROCALCITONIN2021-03-01 20:00:00 Test Item Value Reference Range Interpretation Comments Procalcitonin (test 0.13 ng/mL <0.07 H code = 5899376362) JAMES (test code = JAMES) INTERPRETATION OF [...] lung abscess/empyema. For further information please refer to:[email or web address] Lab Interpretation Abnormal (test code = 77000-4) [facility]2020-12-11 19:07:00 Test Item Value Reference Range Interpretation Comments POCT GLU (test code = 1374808660) 274 mg/dL 70-110 H Lab Interpretation (test code = Abnormal 37542-2) [facility] CenterMAGNESIUM2021-03-01 18:31:00 Test Item Value Reference Range Interpretation Comments MAGNESIUM (test code = 2208892317) 1.9 mg/dL 1.7-2.4 Lab Interpretation (test code = Normal 54120-2) [facility] CenterFERRITIN [id number] 18:31:00 Test Item Value Reference Range Interpretation Comments FERRITIN (test code = 178.0 ng/mL 18.0-464.0 8333680658) JAMES (test code = JAMES) Biotin has been reported to cause a negative bias, interpret results relative to patient's use of biotin. Lab Interpretation (test Normal code = 88406-0) [facility] CenterCT HEAD WO [id number] 14:36:47 No acute intracranial abnormality. Dilated ventricles [...] reviewed this study and agree with the abovereport.[facility] CenterURINALYSIS2021-03-01 14:28:00 Test Item Value Reference Range Interpretation Comments APPEARANCE (test code = Clear Clear 4925142653) COLOR (test code = Yellow Yellow 0213480507) PH (test code = 4.8-8.0 9077119928) SP GRAVITY (test code = 1.003-1.030 0660050687) GLU U QUAL (test code = 500 mg/dL Normal A 2060212691) BLOOD (test code = Negative Negative 5131675690) KETONES (test code = 5 mg/dL Negative A 8707819146) PROTEIN (test code = Negative Negative 2887-8) UROBILIN (test code = Normal Normal 6298159417) BILIRUBIN (test code = Negative Negative 3572609889) NITRITE (test code = Negative Negative 0728683655) LEUK RYAN (test code = Negative Negative 2222690689) RBC/HPF (test code = See_Comment [Autom ated message] 2297384879) The system DocSend generated this result transmit ronan reference range : 0 - 3 HPF. The refe rence range was not u sed to interpret th is result as normal/abnormal . WBC/HPF (test code = See_Comment [Autom ated message] 1871198656) The system DocSend generated this result transmit ronan reference range : 0 - 5 HPF. The refe rence range was not u sed to interpret th is result as normal/abnormal . BACTERIA (test code = Negative Negative 9324035831) MUCOUS (test code = Slight Negative LPF A 0556546038) SQ EPITH (test code = HPF 5319287588) Lab Interpretation (test Abnormal code = 29683-4) [facility] CenterCOVID-19 (ID NOW RAPID TESTING)2020-12-11 13:10:00 Test Item Value Reference Range Interpretation Comments SARS-CoV-2 Rapid ID NOW Not Detected Not Detected (test code = 57776-9) JAMES (test code = JAMES) ID NOW COVID-19 Assay is an isothermal nucleic acid amplification test intended for the qualitative detection of nucleic acid from SARS-CoV-2 viral RNA in nasopharyngeal (RESIDENTIAL PEST CONTROL TECHNICIAN) specimens. It is used under Emergency [...] indicated. Lab Interpretation Normal (test code = 65090-7) [facility] CenterCOMP. METABOLIC PANEL (73103)2020-12-11 12:29:00 Test Item Value Reference Range Interpretation Comments NA (test code = 136 mmol/L 135-145 2216312533) K (test code = 3.5 mmol/L 3.5-5.0 0267238805) CL (test code = 95 mmol/L 98-108 L 0225435075) CO2 TOTAL (test code = 35 mmol/L 23-31 H 5847105855) AGAP (test code = 2-16 9325943502) BUN (test code = 9 mg/dL 7-23 3726077598) GLUCOSE (test code = 329 mg/dL 70-110 H 8453682813) CREATININE (test code = 0.72 mg/dL 0.60-1.25 3360711239) TOTAL BILI (test code = 0.6 mg/dL 0.1-1.3 8659817772) CALCIUM (test code = 9.0 mg/dL 8.6-10.6 8516835477) T PROTEIN (test code = 6.8 g/dL 6.3-8.2 5142990244) ALBUMIN (test code = 3.8 g/dL 3.5-5.0 6505547482) ALK PHOS (test code = 288 U/L 34-122 H 7464658978) ALTv (test code = 46 U/L -50 1741-6) AST(SGOT) (test code = 38 U/L 13-40 7036604073) eGFR Calculation mL/min/1.73m2 (Non-) (test code = 2130252198) eGFR Calculation mL/min/1.73m2 () (test code = 0192602442) JAMES (test code = JAMES) Association of [...] tests). Lab Interpretation Abnormal (test code = 91367-7) [facility] CenterLactic Acid Whole [id number] 12:23:00 Test Item Value Reference Range Interpretation Comments LACTIC ACID (test code = 2.09 mmol/L 0.50-2.20 7679255650) Lab Interpretation (test code = Normal 39555-9) [facility] CenterCB WITH [id number] 12:17:00 Test Item Value Reference Range Interpretation [...] RDW-SD (test code = 44.9 fL 38.5-51.6 83394-0) RDW-CV (test code = 15.9 % 12.1-15.4 H 788-0) PLT (test code = See_Comment H [Automated 777-3) message] The sy stem which generated this result transmitted reference range : 150 - 328 10*3/ ?L. The reference r torito was not used to interpret this result as normal/abnormal . MPV (test code = 8.3 fL 9.8-13.0 L 10942-9) NRBC/100 WBC (test See_Comment [Automat ed code = 3444580652) message] The system which generated this result transmitted reference range : 0.0 - 10.0 /100 WBCs. The refer ence range was not u sed to interpret th is result as normal/abnormal . NRBC x10^3 (test code <0.01 See_Comment [Auto mated = 4227062382) message] The s ystem which generated this result transmitted reference range : 10*3/?L. The reference range was not used to interpret this result as normal/abnormal . GRAN MAT (NEUT) % 77.9 % (test code = 770-8) IMM GRAN % (test code 0.50 % = 8890074787) LYMPH % (test code = 12.2 % 736-9) MONO % (test code = 5.2 % 5905-5) EOS % (test code = 3.7 % 713-8) BASO % (test code = 0.5 % 706-2) GRAN MAT x10^3(ANC) 9.57 10*3/uL 1.99-6.95 H (test code = 2949689122) IMM GRAN x10^3 (test 0.06 10*3/uL 0.00-0.06 code = 7291872543) LYMPH x10^3 (test code 1.50 10*3/uL 1.09-3.23 = 731-0) MONO x10^3 (test code 0.64 10*3/uL 0.36-1.02 = 742-7) EOS x10^3 (test code = 0.46 10*3/uL 0.06-0.53 711-2) BASO x10^3 (test code 0.06 10*3/uL 0.01-0.09 = 704-7) Lab Interpretation Abnormal (test code = 30805-1) [facility] CenterLAB ONLY COVID [id number] 18:43:00COVID DMT InterpretationInterpretation/Recommendations: Molecular NAAT Test Results [...] a nasopharyngeal sample, there is approximately a sdr-xe-kbnrk chance that the patient was infected and [...] based upon aggregate data pooled from the [facility] medical record including both current and prior COVID-19 related testing results for the following tests offered at our institution:A. Tests for the Identification of SARS-CoV-2 RNA:SARS-CoV-2 PCR assays including [place] Aptima, [place] Fusion, Barrett RealTime, and [employer] Xpert Xpress. SARS-CoV-2 Rapid ID NOW by the ID NOW assay. ? B. Tests for the Identification of SARS-CoV-2 Antibodies: Chemiluminescent immunoassays including Access SARS-CoV-2 IgM (DXI 600), KenguruS Ojoa-ZRFJ-NmZ-2 IgG (Vitros 5600 and Vitros 3600), and Barrett SARS-CoV-2 IgG (MERCANTILE REPORTER I System). These interpretation comments assume that only the above testing was utilized and that the approved acceptable specimen type(s) were used for a given test. These interpretations are autopopulated into [employer] based on computerized algorithms matching an interpretation code number to the patient's set of test results. While a clinical pathologist evaluates the combinations for clinical accuracy, clinical correlation is recommended as it may not take into account very remote prior testing. Furthermore, it does not consider testing a patient may have had outside of the [facility] system. Additionally, it should be noted that the computerized algorithm treats the results for PCR testing and Rapid ID NOW testing (also PCR) synonymously, and thus, refers to both testing methodologies as PCR tests. Given that the sensitivity of [facility]'s Rapid ID NOW testingplatform is [...] panel may be beneficial in this setting. [facility] LABORATORY SERVICESCOVID UizlswtUHLI-DwA-9 Rapid ID NOW (no units) ? ? Date ? Value ? 08/21/2020 ? Not Detected ? [facility]2020-08-23 18:25:00 Test Item Value Reference Range Interpretation Comments POCT GLU (test code = 0106463471) 297 mg/dL 70-110 H Lab Interpretation (test code = Abnormal 98983-4) General acute hospital GLUCOSE (AUTOMATED)2020-08-23 14:25:00 Test Item Value Reference Range Interpretation Comments POCT GLU (test code = 1927927223) 181 mg/dL 70-110 H Lab Interpretation (test code = Abnormal 46994-3) [facility] CenterBasi Metabolic Panel (NA, K, CL, CO2, GLUCOSE, BUN, CREATININE, CA)2020-08-23 11:45:00 Test Item Value Reference Range Interpretation Comments NA (test code = 132 mmol/L 135-145 L 1579700471) K (test code = 4.0 mmol/L 3.5-5 7423940695) CL (test code = 96 mmol/L 98-108 L 6316824685) CO2 TOTAL (test code = 33 mmol/L 23-31 H 3260180889) AGAP (test code = 2-16 1223079398) BUN (test code = 9 mg/dL 7-23 0858016089) GLUCOSE (test code = 176 mg/dL 70-110 H 7300096478) CREATININE (test code = 0.66 mg/dL 0.6-1.25 8519591453) CALCIUM (test code = 8.5 mg/dL 8.6-10.6 L 7867803629) eGFR Calculation mL/min/1.73m2 (Non-) (test code = 8637772559) eGFR Calculation mL/min/1.73m2 () (test code = 0108746555) JAMES (test code = JAMES) Association of [...] tests). Lab Interpretation Abnormal (test code = 35596-7) [facility] CenterMagnesium Ascsi9348-59-04 11:45:00 Test Item Value Reference Range Interpretation Comments MAGNESIUM (test code = 0241121499) 2.0 mg/dL 1.7-2.4 Lab Interpretation (test code = Normal 45538-5) [facility] CenterCB with [id number] 11:38:00 Test Item Value Reference Range Interpretation [...] RDW-SD (test code = 41.8 fL 38.5-51.6 20709-0) RDW-CV (test code = 14.3 % 12.1-15.4 788-0) PLT (test code = See_Comment H [Automated 777-3) message] The sy stem which generated this result transmitted reference range : 150 - 328 10*3/ ?L. The reference r torito was not used to interpret this result as normal/abnormal . MPV (test code = 8.0 fL 9.8-13 L 88386-0) NRBC/100 WBC (test See_Comment [Automat ed code = 9173518342) message] The system which generated this result transmitted reference range : 0.0 - 10.0 /100 WBCs. The refer ence range was not u sed to interpret th is result as normal/abnormal . NRBC x10^3 (test code <0.01 See_Comment [Auto mated = 7861674479) message] The s ystem which generated this result transmitted reference range : 10*3/?L. The reference range was not used to interpret this result as normal/abnormal . GRAN MAT (NEUT) % 61.5 % (test code = 770-8) IMM GRAN % (test code 2.00 % = 8477277676) LYMPH % (test code = 25.5 % 736-9) MONO % (test code = 6.3 % 5905-5) EOS % (test code = 3.7 % 713-8) BASO % (test code = 1.0 % 706-2) GRAN MAT x10^3(ANC) 5.29 10*3/uL 1.99-6.95 (test code = 4010433461) IMM GRAN x10^3 (test 0.17 10*3/uL 0-0.06 H code = 0478042812) LYMPH x10^3 (test code 2.19 10*3/uL 1.09-3.23 = 731-0) MONO x10^3 (test code 0.54 10*3/uL 0.36-1.02 = 742-7) EOS x10^3 (test code = 0.32 10*3/uL 0.06-0.53 711-2) BASO x10^3 (test code 0.09 10*3/uL 0.01-0.09 = 704-7) Lab Interpretation Abnormal (test code = 25419-3) General acute hospital GLUCOSE (AUTOMATED)2020-08-23 10:22:00 Test Item Value Reference Range Interpretation Comments POCT GLU (test code = 6211439620) 164 mg/dL 70-110 H Lab Interpretation (test code = Abnormal 59155-6) General acute hospital GLUCOSE (AUTOMATED)2020-08-23 05:56:00 Test Item Value Reference Range Interpretation Comments POCT GLU (test code = 8427490129) 242 mg/dL 70-110 H Lab Interpretation (test code = Abnormal 20930-9) General acute hospital GLUCOSE (AUTOMATED)2020-08-23 03:02:00 Test Item Value Reference Range Interpretation Comments POCT GLU (test code = 6599077071) 210 mg/dL 70-110 H Lab Interpretation (test code = Abnormal 80115-8) General acute hospital GLUCOSE (AUTOMATED)2020-08-22 23:40:00 Test Item Value Reference Range Interpretation Comments POCT GLU (test code = 9012979827) 267 mg/dL 70-110 H Lab Interpretation (test code = Abnormal 03638-1) General acute hospital GLUCOSE (AUTOMATED)2020-08-22 19:08:00 Test Item Value Reference Range Interpretation Comments POCT GLU (test code = 3782983118) 191 mg/dL 70-110 H Lab Interpretation (test code = Abnormal 88243-9) General acute hospital GLUCOSE (AUTOMATED)2020-08-22 13:50:00 Test Item Value Reference Range Interpretation Comments POCT GLU (test code = 2743637478) 174 mg/dL 70-110 H Lab Interpretation (test code = Abnormal 86652-6) [facility] CenterURINE [id number] 12:59:00 Test Item Value Reference Range Interpretation Comments URINE CULTURE (test No aerobic growth (< code = 630-4) 1000 CFU/mL) [facility] with [id number] 11:28:00 Test Item Value Reference Range Interpretation Comments WBC (test code = See_Comment [Automated 6690-2) message] The sy stem which generated this result transmitted reference range : 4.20 - 10.70 10*3/?L. The reference range was not used to interpret this result as normal/abnormal . RBC (test code = See_Comment L [Automated 299-8) message] The sy stem which generated this [...] RDW-SD (test code = 42.5 fL 38.5-51.6 86059-9) RDW-CV (test code = 14.5 % 12.1-15.4 788-0) PLT (test code = See_Comment H [Automated 777-3) message] The sy stem which generated this result transmitted reference range : 150 - 328 10*3/ ?L. The reference r torito was not used to interpret this result as normal/abnormal . MPV (test code = 8.0 fL 9.8-13 L 42277-6) NRBC/100 WBC (test See_Comment [Automat ed code = 8504506670) message] The system which generated this result transmitted reference range : 0.0 - 10.0 /100 WBCs. The refer ence range was not u sed to interpret th is result as normal/abnormal . NRBC x10^3 (test code <0.01 See_Comment [Auto mated = 3285505625) message] The s ystem which generated this result transmitted reference range : 10*3/?L. The reference range was not used to interpret this result as normal/abnormal . GRAN MAT (NEUT) % 69.1 % (test code = 770-8) IMM GRAN % (test code 2.20 % = 3903669096) LYMPH % (test code = 20.9 % 736-9) MONO % (test code = 5.8 % 5905-5) EOS % (test code = 1.0 % 713-8) BASO % (test code = 1.0 % 706-2) GRAN MAT x10^3(ANC) 6.51 10*3/uL 1.99-6.95 (test code = 6966004778) IMM GRAN x10^3 (test 0.21 10*3/uL 0-0.06 H code = 7832399203) LYMPH x10^3 (test code 1.97 10*3/uL 1.09-3.23 = 731-0) MONO x10^3 (test code 0.55 10*3/uL 0.36-1.02 = 742-7) EOS x10^3 (test code = 0.09 10*3/uL 0.06-0.53 711-2) BASO x10^3 (test code 0.09 10*3/uL 0.01-0.09 = 704-7) BASO STIPPLING (test Present A code = 703-9) BANDS (test code = Increased A 6616666655) TOXIC CHANGES (test Present A code = 803-7) Lab Interpretation Abnormal (test code = 78267-8) [facility] Metabolic Panel (NA, K, CL, CO2, GLUCOSE, BUN, CREATININE, CA)2020-08-22 11:12:00 Test Item Value Reference Range Interpretation Comments NA (test code = 135 mmol/L 135-145 5438305309) K (test code = 3.6 mmol/L 3.5-5 7703380337) CL (test code = 99 mmol/L 98-108 7154331606) CO2 TOTAL (test code = 31 mmol/L 23-31 5796284141) AGAP (test code = 2-16 7557517866) BUN (test code = 9 mg/dL 7-23 9877437626) GLUCOSE (test code = 198 mg/dL 70-110 H 9275475341) CREATININE (test code = 0.72 mg/dL 0.6-1.25 3325987661) CALCIUM (test code = 8.3 mg/dL 8.6-10.6 L 5693660456) eGFR Calculation mL/min/1.73m2 (Non-) (test code = 4684281553) eGFR Calculation mL/min/1.73m2 () (test code = 8116079406) JAMES (test code = JAMES) Association of [...] tests). Lab Interpretation Abnormal (test code = 96844-3) [facility] CenterMagnesium Mukam9590-71-21 11:12:00 Test Item Value Reference Range Interpretation Comments MAGNESIUM (test code = 7768316007) 2.0 mg/dL 1.7-2.4 Lab Interpretation (test code = Normal 23371-1) [facility] CenterLipid Panel (Total Cholesterol, Triglycerides, HDL) - [id number] 11:12:00 Test Item Value Reference Range Interpretation Comments CHOL (test code = 155 mg/dL 120-200 0423874569) HDL (test code = 42 mg/dL >40 9395920151) HDLC RATIO (test code = See_Comment [Au tomated message] 4907755766) The system DocSend generated this result transmit ronan reference range : <=5.0. The refe rence range was not u sed to interpret th is result as normal/abnormal . TRIG (test code = 186 mg/dL 30-170 H 5977194413) LDL CHOL (test code = 76 mg/dL See_Comment [Auto mated message] 47700-8) The system DocSend generated this result transmit ronan reference range : <=160. The refe rence range was not u sed to interpret th is result as normal/abnormal . VLDL (test code = 37 mg/dL 5-60 2702703650) Lab Interpretation (test Abnormal code = 39423-9) [facility] CenterHEPATIC FUNCTION PANEL (42460) (ALB,T.PRO,BILI T,BU/BC,ALT,AST,ALK PHOS)2020-08-22 11:12:00 Test Item Value Reference Range Interpretation Comments TOTAL BILI (test code = 6519365833) 0.6 mg/dL 0.1-1.1 BILI UNCON (test code = 2193799808) 0.2 mg/dL 0.1-1.1 BILI CONJ (test code = 9542505706) 0.0 mg/dL 0-0.3 T PROTEIN (test code = 6616826511) 6.0 g/dL 6.3-8.2 L ALBUMIN (test code = 6754802568) 2.8 g/dL 3.5-5 L ALK PHOS (test code = 7201203210) 222 U/L 34-122 H ALTv (test code = 1742-6) 27 U/L 5-50 AST(SGOT) (test code = 7609212642) 30 U/L 13-40 Lab Interpretation (test code = Abnormal 47921-7) General acute hospital GLUCOSE (AUTOMATED)2020-08-22 10:11:00 Test Item Value Reference Range Interpretation Comments POCT GLU (test code = 6465465373) 196 mg/dL 70-110 H Lab Interpretation (test code = Abnormal 87524-4) General acute hospital GLUCOSE (AUTOMATED)2020-08-22 07:15:00 Test Item Value Reference Range Interpretation Comments POCT GLU (test code = 5823810271) 183 mg/dL 70-110 H Lab Interpretation (test code = Abnormal 29716-2) General acute hospital GLUCOSE (AUTOMATED)2020-08-22 02:30:00 Test Item Value Reference Range Interpretation Comments POCT GLU (test code = 9580077474) 295 mg/dL 70-110 H Lab Interpretation (test code = Abnormal 72998-6) General acute hospital GLUCOSE (AUTOMATED)2020-08-21 23:46:00 Test Item Value Reference Range Interpretation Comments POCT GLU (test code = 7182043119) 258 mg/dL 70-110 H Lab Interpretation (test code = Abnormal 56294-3) [facility] CenterC-REACTIVE [id number] 18:50:00 Test Item Value Reference Range Interpretation Comments CRP (test code = 1503451414) 15.5 mg/dL <0.8 H Lab Interpretation (test code = Abnormal 04593-3) [facility] CenterPOCT [facility])2020-08-21 18:21:00 Test Item Value Reference Range Interpretation Comments POCT GLU (test code = 7656582103) 297 mg/dL 70-110 H Lab Interpretation (test code = Abnormal 45276-2) [facility] CenterETHANOL2020-11-09 16:24:00 Test Item Value Reference Range Interpretation Comments ALCOHOL (test code = <10 mg/dL 6401190319) JAMES (test code = Toxic Greater than or JAMES) equal to 80 mg/dL. NOTE: Whole blood values are approximately 10% to 15% lower than serum and plasma. [facility] CenterGAL/CLC ONLY - URINE DRUG (IMMUNOASSAY) - 4 ER [id number] 15:36:00 Test Item Value Reference Range Interpretation Comments AMPHET (test code = Negative Negative 2942679319) Cocaine Metabolite (test Negative Negative code = 9531617438) OPIATES (test code = Presumptive Positive Negative A 3316835226) THC (test code = Negative Negative 2465373436) JAMES (test code = JAMES) Urine Drug Cutoff Ranges Amphetamine: ? 1,000 ng/mLCocaine: ? 150 ng/mLOpiates: ? 300 ng/mLCannabinoids: ?50 ng/mL The results are to be used only for medical (i.e., treatment) purposes. Unconfirmed screening results must not be used for non-medical purposes (e.g., employment testing, legal testing). Lab Interpretation (test Abnormal code = 78456-3) [facility] ONLY - SYPHILIS [id number] 15:04:00 Test Item Value Reference Range Interpretation Comments Syphilis IgG/IgM (test Non-reactive Non-reactive code = 56490-9) JAMES (test code = JAMES) Non-reactive - No serologic evidence of T. pallidum infection. Cannot exclude incubating or early syphilis. Submit a second specimen in 2-4 weeks if syphilis is clinically suspected. Equivocal - Further testing to follow. Reactive - Further testing to follow. Lab Interpretation (test Normal code = 45486-4) [facility] CenterUrinalysis2020-11-09 14:52:00 Test Item Value Reference Range Interpretation Comments APPEARANCE (test code = Clear Clear 4255179763) COLOR (test code = Yellow Yellow 5170143303) PH (test code = 4.8-8.0 2956934189) SP GRAVITY (test code = 1.003-1.030 5760763959) GLU U QUAL (test code = 500 mg/dL Normal A 0511158844) BLOOD (test code = Negative Negative 9137017388) KETONES (test code = 20 mg/dL Negative A 2586235156) PROTEIN (test code = Negative Negative 2887-8) UROBILIN (test code = Normal Normal 4916408314) BILIRUBIN (test code = Negative Negative 9500163696) NITRITE (test code = Negative Negative 3455204419) LEUK RYAN (test code = Negative Negative 1553861832) RBC/HPF (test code = <1 See_Comment [Autom ated message] 5013206154) The system DocSend generated this result transmit ronan reference range : 0 - 3 HPF. The refe rence range was not u sed to interpret th is result as normal/abnormal . WBC/HPF (test code = See_Comment [Autom ated message] 3722374691) The system DocSend generated this result transmit ronan reference range : 0 - 5 HPF. The refe rence range was not u sed to interpret th is result as normal/abnormal . BACTERIA (test code = Negative Negative 8217423716) MUCOUS (test code = Slight Negative LPF A 3011925534) Lab Interpretation (test Abnormal code = 25665-1) [facility] CenterACTIVATED PARTIAL THRMPLAS [id number] 13:45:00 Test Item Value Reference Range Interpretation Comments APTT Patient (test code = See_Comment [ Automated message] 3173-2) The system DocSend generated this result transmitted ref erence range: 26 - 36 Seconds. The re ference range was not u sed to interpret this result as normal/abnor mal. Lab Interpretation (test Normal code = 24537-2) [facility] CenterPOCT GLUCOSE (AUT[facility]ATED)2020-08-21 13:45:00 Test Item Value Reference Range Interpretation Comments POCT GLU (test code = 7979792604) 246 mg/dL 70-110 H Lab Interpretation (test code = Abnormal 02961-9) [facility] CenterHIV 1/2 AG-AB WITH [id number] 12:32:00 Test Item Value Reference Range Interpretation Comments HIV Negative Negative Semi-quantitative (test code = 46411-9) JAMES (test code = Non-reactive for HIV-1 JAMES) antigen and HIV-1/HIV-2 antibodies. ?No laboratory evidence of HIV infection. ?Repeat in 2-4 weeks if acute HIV infection is suspected. [facility] WITH [id number] 12:18:00 Test Item Value Reference Range Interpretation Comments WBC (test code = See_Comment [Automated 6090-2) message] The sy stem which generated this [...] RDW-SD (test code = 44.4 fL 38.5-51.6 13883-5) RDW-CV (test code = 14.5 % 12.1-15.4 788-0) PLT (test code = See_Comment H [Automated 777-3) message] The sy stem which generated this result transmitted reference range : 150 - 328 10*3/ ?L. The reference r torito was not used to interpret this result as normal/abnormal . MPV (test code = 8.5 fL 9.8-13 L 26548-4) NRBC/100 WBC (test See_Comment [Automat ed code = 6416485239) message] The system which generated this result transmitted reference range : 0.0 - 10.0 /100 WBCs. The refer ence range was not u sed to interpret th is result as normal/abnormal . NRBC x10^3 (test code <0.01 See_Comment [Auto mated = 3327744740) message] The s ystem which generated this result transmitted reference range : 10*3/?L. The reference range was not used to interpret this result as normal/abnormal . GRAN MAT (NEUT) % 90.4 % (test code = 770-8) IMM GRAN % (test code 1.30 % = 6248116153) LYMPH % (test code = 7.1 % 736-9) MONO % (test code = 0.5 % 5905-5) EOS % (test code = 0.1 % 713-8) BASO % (test code = 0.6 % 706-2) GRAN MAT x10^3(ANC) 7.74 10*3/uL 1.99-6.95 H (test code = 8803934373) IMM GRAN x10^3 (test 0.11 10*3/uL 0-0.06 H code = 9557252974) LYMPH x10^3 (test code 0.61 10*3/uL 1.09-3.23 L = 731-0) MONO x10^3 (test code 0.04 10*3/uL 0.36-1.02 L = 742-7) EOS x10^3 (test code = <0.03 0.06-0.53 L 711-2) BASO x10^3 (test code 0.05 10*3/uL 0.01-0.09 = 704-7) POLYCHROMASIA (test 2+ See_Comment [Automa ronan code = 17956-9) message] The system which generated this result transmitted reference range : 2+. The referen ce range was not u sed to interpret th is result as normal/abnormal . BANDS (test code = Increased A 8387214640) Lab Interpretation Abnormal (test code = 77684-6) [facility] [facility]AL[facility]ONIN2020[facility]09 11:48:00 Test Item Value Reference Range Interpretation Comments Procalcitonin (test 0.36 ng/mL <0.07 H code = 0594801359) JAMES (test code = JAMES) INTERPRETATION OF [...] lung abscess/empyema. For further information please refer to:[email or web address] Lab Interpretation Abnormal (test code = 48357-9) [facility] CenterLACT[facility] [id number] 10:53:00 Test Item Value Reference Range Interpretation Comments LDH (test code = 0993631714) 351 U/L 300-600 Lab Interpretation (test code = Normal 56967-6) [facility] CenterSEDIMENTATION [id number] 10:07:00 Test Item Value Reference Range Interpretation Comments ESR (test code = See_Comment H [Automated message] 0337980563) The system [employer] generated this result transmitted ref erence range: 0 - 10 m m/HR. The reference r torito was not used to interpret this result as normal/abnor mal. Lab Interpretation (test Abnormal code = 45895-8) [facility] CenterPOC[facility] GLUCOSE (AUTOMATED)2020-08-21 09:45:00 Test Item Value Reference Range Interpretation Comments POCT GLU (test code = 9859499185) 287 mg/dL 70-110 H Lab Interpretation (test code = Abnormal 29829-8) [facility] CenterGlycosylated Hemoglobin (A1C)2020-08-21 09:29:00 Test Item Value Reference Range Interpretation Comments HGB A1C (test code = 4548-4) 9.8 % 4-6 H Lab Interpretation (test code = Abnormal 28168-3) [facility] CenterCOVID-19 (ID NOW RAPID TESTING)2020-08-21 09:13:00 Test Item Value Reference Range Interpretation Comments SARS-CoV-2 Rapid ID NOW Not Detected Not Detected (test code = 91052-0) JAMES (test code = JAMES) ID NOW COVID-19 Assay is an isothermal nucleic acid amplification test intended for the qualitative detection of nucleic acid from SARS-CoV-2 viral RNA in nasopharyngeal (RESIDENTIAL PEST CONTROL TECHNICIAN) specimens. It is used under Emergency [...] indicated. Lab Interpretation Normal (test code = 45617-1) [facility] CenterProthrombin Time / [id number] 08:59:00 Test Item Value Reference Range Interpretation Comments PROTIME PATIENT (test See_Comment H [Auto mated message] code = 5964-2) The system [employer] generated this result transmitted ref erence range: 10.1 - 1 2.6 Seconds. The reference range was not used to int erpret this result as normal/abnormal . INR (test code = 6301-6) Nor mal INR <1.1; Warfarin Therap eutic range 2.0 to 3. 0 or 2.5 to 3.5, dep ending upon the indica tions. Lab Interpretation (test Abnormal code = 37652-0) [facility] CenteraPTT2020-11-09 08:59:00 Test Item Value Reference Range Interpretation Comments APTT Patient (test code = See_Comment [ Automated message] 3173-2) The system [employer] generated this result transmitted ref erence range: 26 - 36 Seconds. The re ference range was not u sed to interpret this result as normal/abnor mal. Lab Interpretation (test Normal code = 70697-7) [facility] CenterBASI METABOLIC PANEL (NA, K, CL, CO2, GLUCOSE, BUN, CREATININE, CA)2020-08-21 08:52:00 Test Item Value Reference Range Interpretation Comments NA (test code = 136 mmol/L 135-145 6772369332) K (test code = 4.3 mmol/L 3.5-5 2995368962) CL (test code = 104 mmol/L 98-108 6945580285) CO2 TOTAL (test code = 24 mmol/L 23-31 7202488947) AGAP (test code = 2-16 8960977199) BUN (test code = 8 mg/dL 7-23 1804170953) GLUCOSE (test code = 308 mg/dL 70-110 H 8425651071) CREATININE (test code = 0.72 mg/dL 0.6-1.25 2140446856) CALCIUM (test code = 7.8 mg/dL 8.6-10.6 L 5430372184) eGFR Calculation mL/min/1.73m2 (Non-) (test code = 6152404147) eGFR Calculation mL/min/1.73m2 () (test code = 3348495807) JAMES (test code = JAMES) Association of [...] tests). Lab Interpretation Abnormal (test code = 39344-5) [facility] CenterHEPATIC FUNCTION PANEL (00040) (ALB,T.PRO,BILI T,BU/BC,ALT,AST,ALK PHOS)2020-08-21 08:52:00 Test Item Value Reference Range Interpretation Comments TOTAL BILI (test code = 6766472089) 0.8 mg/dL 0.1-1.1 BILI UNCON (test code = 6948536492) 0.3 mg/dL 0.1-1.1 BILI CONJ (test code = 4678185233) 0.0 mg/dL 0-0.3 T PROTEIN (test code = 9933273070) 5.7 g/dL 6.3-8.2 L ALBUMIN (test code = 7678809106) 2.7 g/dL 3.5-5 L ALK PHOS (test code = 5388393624) 245 U/L 34-122 H ALTv (test code = 1742-6) 37 U/L 5-50 AST(SGOT) (test code = 5867727451) 43 U/L 13-40 H Lab Interpretation (test code = Abnormal 40374-1) [facility]
--- NOTE | 2022-01-16 05:13 | EDPHYS ---
Physician Documentation [facility] Name: Kiel Ngo Age: 71 yrs Sex: Male : 1950 Arrival Date: 01/16/2022 Time: 04:39 Bed 5 Private MD: ED Physician Stu Banerjee HPI: 01/16 05:06 This 71 yrs old Male presents to ER via EMS with complaints of Groin Pain. chetan 05:06 The patient or guardian reports decreased range of motion, pain. that occurred at an [facility] unknown site, sustained from chronic pain. The complaints affect the right hip. Onset: The symptoms/episode began/occurred 2 day(s) ago. Modifying factors: The symptoms are alleviated by nothing, remaining still, the symptoms are aggravated by any movement. Associated signs and symptoms: Pertinent positives: None. Severity of symptoms: At their worst the symptoms were moderate, in the emergency department the symptoms are unchanged. The patient has not experienced similar symptoms in the past. Historical: - Allergies: 04:46 Demerol; lp1 04:46 metformin; lp1 04:46 Morphine; lp1 - Home Meds: 04:46 Metoprolol Tartrate Oral [Active]; Dilaudid [Active]; lp1 - PMHx: 04:46 Atrial fibrillation; chronic back pain; Chronic right leg pain; neuropathy; lp1 - PSHx: 04:46 back sx; PANCREAS SX; R. Ankle SX; lp1 - Immunization history:: Adult Immunizations up to date. - Social history:: Smoking status: Patient denies any tobacco usage or history of. - Family history:: not pertinent. ROS: 05:06 Constitutional: Negative for fever, chills, and weight loss, Eyes: Negative for injury, chetan pain, redness, and discharge, ENT: Negative for injury, pain, and discharge, Neck: Negative for injury, pain, and swelling, Cardiovascular: Negative for chest pain, palpitations, and edema, Respiratory: Negative for shortness of breath, cough, wheezing, and pleuritic chest pain, Abdomen/GI: Negative for abdominal pain, nausea, vomiting, diarrhea, and constipation, Back: Negative for injury and pain, : Negative for injury, bleeding, discharge, and swelling, Skin: Negative for injury, rash, and discoloration, Neuro: Negative for headache, weakness, numbness, tingling, and seizure, Psych: Negative for depression, anxiety, suicide ideation, homicidal ideation, and hallucinations, Allergy/Immunology: Negative for hives, rash, and allergies, Endocrine: Negative for neck swelling, polydipsia, polyuria, polyphagia, and marked weight changes, Hematologic/Lymphatic: Negative for swollen nodes, abnormal bleeding, and unusual bruising. 05:06 MS/extremity: Positive for decreased range of motion, pain, of the right hip. Exam: 05:06 Constitutional: This is a well developed, well nourished patient who is awake, alert, chetan and in no acute distress. Head/Face: Normocephalic, atraumatic. Eyes: Pupils equal round and reactive to light, extra-ocular motions intact. Lids and lashes normal. Conjunctiva and sclera are non-icteric and not injected. Cornea within normal limits. Periorbital areas with no swelling, redness, or edema. ENT: Nares patent. No nasal discharge, no septal abnormalities noted. Tympanic membranes are normal and external auditory canals are clear. Oropharynx with no redness, swelling, or masses, exudates, or evidence of obstruction, uvula midline. Mucous membranes moist. Neck: Trachea midline, no thyromegaly or masses palpated, and no cervical lymphadenopathy. Supple, full range of motion without nuchal rigidity, or vertebral point tenderness. No Meningismus. Chest/axilla: Normal chest wall appearance and motion. Nontender with no deformity. No lesions are appreciated. Cardiovascular: Regular rate and rhythm with a normal S1 and S2. No gallops, murmurs, or rubs. Normal PMI, no JVD. No pulse deficits. Respiratory: Lungs have equal breath sounds bilaterally, clear to auscultation and percussion. No rales, rhonchi or wheezes noted. No increased work of breathing, no retractions or nasal flaring. Abdomen/GI: Soft, non-tender, with normal bowel sounds. No distension or tympany. No guarding or rebound. No evidence of tenderness throughout. Back: No spinal tenderness. No costovertebral tenderness. Full range of motion. Male : Normal genitalia with no discharge or lesions. Skin: Warm, dry with normal turgor. Normal color with no rashes, no lesions, and no evidence of cellulitis. Neuro: Awake and alert, GCS 15, oriented to person, place, time, and situation. Cranial nerves II-XII grossly intact. Motor strength 5/5 in all extremities. Sensory grossly intact. Cerebellar exam normal. Normal gait. Psych: Awake, alert, with orientation to person, place and time. Behavior, mood, and affect are within normal limits. 05:06 Musculoskeletal/extremity: ROM: limited active range of motion, limited passive range of motion, limited active range of motion due to pain, limited passive range of motion due to pain, Circulation is intact in all extremities. Sensation intact. Compartment Syndrome exam of affected extremity: is normal. Weight bearing: is unable to bear weight, DVT Exam: no swelling, negative Homans' sign noted on exam, no appreciated bluish discoloration, no erythema, no increased warmth, pain, swelling. Vital Signs: 04:44 BP 127 / 84; Pulse 115; Resp 20; Temp 98.2(O); Pulse Ox 95% on R/A; Weight 81.65 kg lp1 (R); Height 5 ft. 11 in. (180.34 cm); Pain 10/10; 05:33 BP 153 / 84; Pulse 106; Resp 22 S; Pulse Ox 95% on R/A; as6 04:44 Body Mass Index 25.10 (81.65 kg, 180.34 cm) lp1 MDM: 04:42 Patient medically screened. [facility] 05:10 Differential diagnosis: bursitis, arthritis. Data reviewed: vital signs, nurses notes, [facility] EMS record, radiologic studies, CT scan, plain films. Data interpreted: Pulse oximetry: on room air is 95 %. Test interpretation: by ED physician or midlevel provider: plain radiologic studies. 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 Administered Medications: 05:32 Drug: Dilaudid 3 mg Route: IM; Site: right vastus lateralis; as6 05:46 Follow up: Response: No adverse reaction; RASS: Alert and Calm (0) as6 05:32 Drug: Phenergan (promethazine) 25 mg Route: IM; Site: right vastus lateralis; as6 05:47 Follow up: Response: No adverse reaction as6 Disposition Summary: 01/16/22 05:12 Discharge Ordered Location: Home chetan Problem: new chetan Symptoms: have improved chetan Condition: Stable chetan Diagnosis - Pain in right hip chetan - Chronic pain, not elsewhere classified chetan Followup: chetan - With: Private Physician - When: 2 - 3 days - Reason: Recheck today's complaints, Continuance of care, Re-evaluation by your physician Followup: chetan - With: Madhu Francois DO - When: 2 - 3 days - Reason: Recheck today's complaints, Re-evaluation by your physician Discharge Instructions: - Discharge Summary Sheet chetan - Arthritis chetan - Musculoskeletal Pain chetan - Hip Pain chetan - Arthritis, [id number] chetan - Joint Pain, Jcyo-kb-Hfik chetan Forms: - Medication Reconciliation Form chetan - Thank You Letter chetan - Antibiotic Education chetan - Prescription Opioid Use chetan Signatures: Stu Banerjee MD MD cha Pena, Laura RN RN lp1 Adrian López RN RN as6
--- NOTE | 2022-01-16 05:13 | ER ---
Nurse's Notes [facility] Name: Kiel Ngo Age: 71 yrs Sex: Male : 1950 Arrival Date: 01/16/2022 Time: 04:39 Bed 5 Private MD: Diagnosis: Pain in right hip;Chronic pain, not elsewhere classified Presentation: 01/16 04:44 Chief complaint: EMS states: Called for patient with right groin pain since October, denies any injury to site, seen in ER yesterday for same complaint; Patient reports "I'm out of my Dilaudid". Coronavirus screen: At this time, the client does not indicate any symptoms associated with coronavirus-19. Ebola Screen: No symptoms or risks identified at this time. Initial Sepsis Screen: Does the patient meet any 2 criteria? HR > 90 bpm. Does the patient have a suspected source of infection? No. Patient's initial sepsis screen is negative. Risk Assessment: Do you want to hurt yourself or someone else? Patient reports no desire to harm self or others. Onset of symptoms was January 16, 2022. 04:44 Method Of Arrival: EMS: [facility] lp1 04:44 Acuity: JOZEF 4 lp1 Triage Assessment: 05:47 General: Behavior is calm, cooperative. as6 Historical: - Allergies: 04:46 Demerol; lp1 04:46 metformin; lp1 04:46 Morphine; lp1 - Home Meds: 04:46 Metoprolol Tartrate Oral [Active]; Dilaudid [Active]; lp1 - PMHx: 04:46 Atrial fibrillation; chronic back pain; Chronic right leg pain; neuropathy; lp1 - PSHx: 04:46 back sx; PANCREAS SX; R. Ankle SX; lp1 - Immunization history:: Adult Immunizations up to date. - Social history:: Smoking status: Patient denies any tobacco usage or history of. - Family history:: not pertinent. Screenin:46 Abuse screen: Denies threats or abuse. Denies injuries from another. Nutritional lp1 screening: No deficits noted. Tuberculosis screening: No symptoms or risk factors identified. Fall Risk Total Chow Fall Scale indicates High Risk Score (45 or more points). Fall prevention measures have been instituted. Side Rails Up X 2 Frequent Obs/Assessments Occuring. Assessment: 05:32 General: Appears in no apparent distress. Pain: Complains of pain in right femoral area as6 and right inguinal area. Vital Signs: 04:44 BP 127 / 84; Pulse 115; Resp 20; Temp 98.2(O); Pulse Ox 95% on R/A; Weight 81.65 kg lp1 (R); Height 5 ft. 11 in. (180.34 cm); Pain 10/10; 05:33 BP 153 / 84; Pulse 106; Resp 22 S; Pulse Ox 95% on R/A; as6 04:44 Body Mass Index 25.10 (81.65 kg, 180.34 cm) lp1 ED Course: 04:39 Patient arrived in ED. mw2 04:39 Stu Banerjee MD is Attending Physician. [facility] 04:45 Triage completed. lp1 04:46 Arm band placed on. lp1 04:46 Patient has correct armband on for positive identification. value stream coach on. Pulse lp1 ox on. NIBP on. 05:12 Madhu Francois DO is Referral Physician. chetan 05:16 Adrian López, DIEGO is Primary Nurse. as6 05:47 No provider procedures requiring assistance completed. Patient did not have IV access as6 during this emergency room visit. Administered Medications: 05:32 Drug: Dilaudid 3 mg Route: IM; Site: right vastus lateralis; as6 05:46 Follow up: Response: No adverse reaction; RASS: Alert and Calm (0) as6 05:32 Drug: Phenergan (promethazine) 25 mg Route: IM; Site: right vastus lateralis; as6 05:47 Follow up: Response: No adverse reaction as6 Outcome: 05:12 Discharge ordered by . chetan 05:47 Discharged to home via ambulance. as6 05:47 Condition: stable 05:47 Discharge instructions given to patient, Instructed on discharge instructions, follow up and referral plans. Demonstrated understanding of instructions, follow-up care. 05:47 Patient left the ED. as6 Signatures: Stu Banerjee MD MD cha Pena, Laura, RN RN lp1 Redd Alan mw2 Adrian López, DEIGO RN as6
[2022-01-16] MEDS ORDERED: PROMETHAZINE INJ 25 MG/ML AMP ONE (05:22)
[2022-01-16] MEDS ORDERED: HYDROMORPHONE HCL 1 MG/ML INJ ONE (05:22)
[2022-01-16 18:53] VITALS: TEMP 98.2; O2SAT 95
[2022-01-16 18:55] VITALS: BP 153/84
== END 2022-01-16 05:47 | disposition home or self-care (01) ==
LOC: ER 04:37
DX: G89.29 Other chronic pain (principal); I48.91 Unspecified atrial fibrillation; Z88.5 Allergy status to narcotic agent; Z88.8 Allergy status to other drugs, medicaments and biological substances
CPT/HCPCS: 96372; 99284; J2550; J1170

== ENCOUNTER 2022-01-16 22:09 | Emergency (ER) | payer OTHER ==
--- OUTSIDE RECORDS SUMMARY | 2022-01-16 22:17 | XMS REPORT | Continuity of Care Document ---
:1950 Author Organization [facility] t Address [address] [place] [address] Dr. Motley [address] [place] [id number] Care Team Providers Name Role Phone DIOGENES [...] Policy Number Effective Date Expiration Date S [facility] MEDICARE PART A [id number] 2007 \\T\\ B 00:00:00 [employer] INDEMNITY [id number] 2016 00:00:00 MEDICARE PART A [id number] 2014 \\T\\ B - MEDICARE 00:00:00 INDEMNITY/TRADITIO [id number] NAL CHOICE - [employer] 00:00:00 Problems Condition [...] rs LFTs LFTs 2-05 ity of 00:00: [place] 00 Medical Branch Cellulitis Cellulitis Disease Active U nivers 2-04 ity of 00:00: Medical Branch Rash Rash Disease Active 2019- Univers 1-09 ity of 00:00: [place] 00 Medical Branch Allergies, Adverse Reactions, Alerts Allergy Allergy Status Severity Reaction(s) Onset Inactive Treating Comm ents Source Name Type Date Date Clinician Drew Propensi Active Rash 2020- Univers ty to 1-10 ity of adverse 00:00: [place] reaction 00 Medical s Branch PEACH DRUG Active Rash 2019- Univers INGREDI 1-10 ity of 00:00: [place] 00 Medical Branch Lidocain Drug Active Itching 2020- Univers e Allergy - ity of 00:00: [...] ity of 00:00: [place] 00 Medical Branch GLIMEPIR DRUG Active Hives Univers EFREN INGREDI 3-16 ity of 00:00: [place] 00 Medical Branch METFORMI DRUG Active ITCHING Univers N INGREDI 3-16 ity of 00:00: [place] [address] Medical Branch Social History Social Habit Start Date Stop Date Quantity Comments Source Exposure to Not sure University of SARS-CoV-2 [facility] (event) Branch History of Chews Tobacco University of tobacco use [facility] History SDOH 2020-11-17 2020-11-17 5 University o f Financial 00:00:00 00:00:00 [facility] Branch History [facility] Food 2020-11-17 2020-11-17 1 Univers ity of Worry 00:00:00 00:00:00 [facility] History SDOH Food 2020-11-17 2020-11-17 1 Univers ity of Scarcity 00:00:00 00:00:00 [facility] History [facility] 2020-11-17 2020-11-17 1 University o f Transport Med 00:00:00 00:00:00 [facility] al Branch History [facility] 2020-11-17 2020-11-17 1 University o f Transport Non-Med 00:00:00 00:00:00 [facility] edical Branch Education 2020-11-16 2020-11-16 21 [place] of 00:00:00 00:00:00 [facility] Alcohol intake 2020-11-16 2020-11-16 Ex-drinker [place] of 00:00:00 00:00:00 (finding) [facility] Tobacco use and 2020-08-21 2020-08-21 Former user Universi ty of exposure 00:00:00 00:00:00 [facility] Tobacco Comment 2020-08-21 2020-08-21 quit 10 years Univer sity of 00:00:00 00:00:00 ago, started in [place] Med ica 2nd year of Branch college (~40 years) Alcohol Comment 2020-08-21 2020-08-21 Used to have 2-3 Uni versity of 00:00:00 00:00:00 six-packs of [place] Medica l beer daily x 20 Branch years, quit 2005 History [facility] 2020-08-21 2020-08-21 99 University o f Alcohol Frequency 00:00:00 00:00:00 [place] M edical Branch History [facility] 2020-08-21 2020-08-21 99 [place] o f Alcohol Std 00:00:00 00:00:00 [place] Medical Drinks Branch History [facility] 2020-08-21 2020-08-21 99 [place] o f Alcohol Binge 00:00:00 00:00:00 [facility] al Branch Sex [birth year] Universit y of 00:00:00 00:00:00 [facility] Smoking Status Start Date Stop Date Source Never smoker [facility] Medications Ordered Filled Start Stop [...] by ity of tablet 22:47: mouth at [place] 18 bedtime. Medical Branch [...] 0845, Until Discontinu ed, Routine amLODIPine Yes [id number] 10mg Take 1 Univers 10 mg 3-07 tablet by ity of tablet 00:00: mouth [place] 00 daily. Medical Branch clotrimazol 0 Yes [id number] Apply to Univers e 1 % 3-07 face/ears, ity of topical 00:00: armpits, [place] cream 00 pannus and Medical back/any Branch other rash twice a day fluocinonid 2020-0 Yes [id number] Apply to Univers e 0.05 % 3-07 scalp ity of solution 00:00: twice a [place] 00 day Medical Branch triamcinolo 2020-0 Yes [id number] Apply to Univers ne 3-07 back, ity of acetonide 00:00: armpits [place] 0.1 % cream 00 and other Med ical affected Branch areas twice daily, please mix with clotrimazo le hydrOXYzine 2020-0 Yes [id number] 10mg Take 1 Univers 10 mg 3-07 tablet by ity of tablet 00:00: mouth 2 00 (two) Medical times Branch daily. amLODIPine 2020-0 Yes [id number] 10mg Take 1 Univers 10 mg 3-07 tablet by ity of tablet 00:00: mouth 00 daily. Medical Branch clotrimazol 2020-0 Yes [id number] Apply to Univers e 1 % 3-07 face/ears, ity of topical 00:00: armpits, [place] cream 00 pannus and Medical back/any Branch other rash twice a day fluocinonid 2020-0 Yes [id number] Apply to Univers e 0.05 % 3-07 scalp ity of solution 00:00: twice a day Medical Branch triamcinolo 2020-0 Yes [id number] Apply to Univers ne 3-07 back, ity of acetonide 00:00: armpits [place] 0.1 % cream 00 and other Med ical affected Branch areas twice daily, please mix with clotrimazo le hydrOXYzine 0 Yes [id number] 10mg Take 1 Univers 10 mg 3-07 tablet by ity of tablet 00:00: mouth 2 (two) Medical times Branch daily. amLODIPine 0 Yes [id number] 10mg Take 1 Univers 10 mg 3-07 tablet by ity of tablet 00:00: mouth 00 daily. Medical Branch clotrimazol 2020-0 Yes [id number] Apply to Univers e 1 % 3-07 face/ears, ity of topical 00:00: armpits, [place] cream 00 pannus and Medical back/any Branch other rash twice a day fluocinonid 2020-0 Yes [id number] Apply to Univers e 0.05 % 3-07 scalp ity of solution 00:00: twice a [place] 00 day Medical Branch triamcinolo 2020-0 Yes [id number] Apply to Univers ne 3-07 back, ity of acetonide 00:00: armpits [place] 0.1 % cream 00 and other Med ical affected Branch areas twice daily, please mix with clotrimazo le hydrOXYzine Yes [id number] 10mg Take 1 Univers 10 mg 3-07 tablet by ity of tablet 00:00: mouth 2 [place] 00 (two) Medical times Branch daily. amLODIPine Yes [id number] 10mg Take 1 Univers 10 mg 3-07 tablet by ity of tablet 00:00: mouth [place] 00 daily. Medical Branch clotrimazol Yes [id number] Apply to Univers e 1 % 3-07 face/ears, ity of topical 00:00: armpits, [place] cream 00 pannus and Medical back/any Branch other rash twice a day fluocinonid Yes [id number] Apply to Univers e 0.05 % 12-17 scalp ity of solution 00:00: twice a [place] 00 day Medical Branch triamcinolo Yes [id number] Apply to Univers ne 3-07 back, ity of acetonide 00:00: armpits [place] 0.1 % cream 00 and other Med ical affected Branch areas twice daily, please mix with clotrimazo le hydrOXYzine Yes [id number] 10mg Take 1 Univers 10 mg 3-07 tablet by ity of tablet 00:00: mouth 2 [place] 00 (two) Medical times Branch daily. cephALEXin 2020-2020- No [id number] 500mg Take 1 Univers 500 mg 3-04 14- capsule by ity of capsule 00:00: 05:59 mouth [place] 00 :00 every 6 Medical (six) Branch hours for 3 days. cephALEXin 2020-0 2020- No [id number] 500mg Take 1 Univers 500 mg 3-04 14-11 capsule by ity of capsule 00:00: 05:59 mouth [place] 00 :00 every 6 Medical (six) Branch hours for 3 days. hydrOXYzine 2020- No [id number] 10mg Take 1 Univers 10 mg 3-04 14-07 tablet by ity of tablet 00:00: 00:00 mouth 2 [place] 00 :00 (two) Medical times Branch daily. morpHINE Yes 4mg 4 mg, Slow Uni vers injection 4 3- IV Push, ity of mg 22:40: Q6HPRN, [place] 02 Starting Medical 12/16/20 Branch at 1640, Until Discontinu ed, Routine, Pain (scale 7-10) NaCl 0.9% 2020- No 500mL at 999 Univ ers (NS) bolus 12-16-06 mL/hr, 500 it y of infusion 19:30: [...] 1000mL at 125 Univ ers ringers IV 12-16-06 mL/hr, ity of infusion 01:00: 00:16 1,000 [...] Until Discontinu ed, Routine amLODIPine 2020- No [id number] 10mg Take 1 Univers 10 mg 12-15 tablet by ity of tablet 00:00: 00:00 mouth [place] 00 :00 daily. Medical Branch HYDROmorpho 2020- No 1mg 1 mg, Univ ers ne 12-14 Oral, ity of (DILAUDID) 17:35: 15:18 Q6HPRN, [place] tablet 1 mg 30 :06 Starting Medi jose c [facility] 12/14/20 Branch at 1135, Until Fri12/15/20 at 0918, Routine, Pain (scale 7-10) hydrOXYzine Yes 10mg 10 mg, [facility] ers (ATARAX) 12-14 Oral, BID, ity o f tablet 10 17:30: First dose [place] mg 00 on [facility] Medical 12/14/20 at Branch 1130, Until Discontinu ed, Routine lisinopriL Yes 5mg 5 mg, Univer s (PRINIVIL,Z 12-14 Oral, ity of ESTRIL) 17:30: DAILY, [place] tablet 5 mg 00 First dose Me dical on [facility] Branch 12/14/20 at 1130, Until Discontinu ed, Routine triamcinolo 2020- No [id number] Apply to [facility] 12-14 back, ity of acetonide 00:00: 00:00 armpits [place] 0.1 % cream 00 :00 and other Med ical affected Branch areas twice daily, please mix with clotrimazo le clotrimazol 2020- No [id number] Apply to Univers e 1 % 12-14 face/ears, ity of topical 00:00: 00:00 armpits, [place] cream 00 :00 pannus and Medical back/any Branch other rash twice a day fluocinonid 2020- No [id number] Apply to Univers e 0.05 % 12-14 scalp ity of solution 00:00: 00:00 twice a [place] 00 :00 day Medical Branch hydrOXYzine 2020- No [id number] 10mg Take 1 Univers 10 mg 12-14 [...] [place] mg 00 First dose Medical on [facility] Branch 12/13/20 at 1500, Until Discontinu ed, [...] IV Push, ity of (PF)) 10:07: Q6HPRN, [place] injection 4 28 Starting Medi jose c mg 12/13/20 Branch at 0407, Until Discontinu ed, Routine, Nausea and Vomiting (N/V) ondansetron 2020- No 4mg 4 mg, Slow Univers (ZOFRAN 12-1303 IV Push, ity of (PF)) 04:55: 05:44 ONCE, 1 [place] injection 4 00 :00 dose, [facility] ical mg 12/12/20 at Branch 2300, Routine traMADoL 2020- No 50mg 50 mg, Univer s (ULTRAM) 12-13 03-03 Oral, ity of tablet 50 03:45: 03:34 ONCE, 1 [place] mg 00 :00 dose, [facility] 12/12/20 at Branch 2145, Routine insulin Yes 15U 15 Units, [facility] rs glargine 12-12 Subcutaneo ity o f (LANTUS 15:00: us, DAILY, [place] U-100) 00 First dose Medical injection on [facility] 15 Units 12/12/20 at 0900, Until Discontinu ed hydrOXYzine 2020- No 10mg 10 mg, Uni vers (ATARAX) 3 03-02 Oral, ity of tablet 10 08:15: 07:33 ONCE, 1 [place] mg 00 :00 dose, [facility] 12/12/20 at Branch 0215, Routine mirtazapine Yes 7.5mg 7.5 mg, Un toi (REMERON) 3-02 Oral, QHS, ity of tablet 7.5 03:00: First dose [place] mg 00 on [facility] 12/11/20 at Branch 2100, Until Discontinu ed, Routine venlafaxine Yes 300mg 300 mg, Un toi XR (EFFEXOR 3-02 Oral, QHS, it y of XR) 24 hr 03:00: First dose [place] capsule 300 00 on [facility] Medica l mg 12/11/20 at Branch 2100, Until Discontinu ed, Routine fluocinonid Yes Topical, Un toi e (LIDEX) 12-12 BID, First ity of 0.05 % 02:00: dose on [place] solution 00 Fri12/11/20 Medic al at 2000, Branch Until Discontinu ed, Routine acetaminoph 2020- No 1{tbl} 1 tablet, Univers en-codeine 12-11 Oral, ity of (TYLENOL 23:23: 13:49 Q6HPRN, [...] l (NS) 50 mL First dose [facility] MINI-BAG on Fri12/11/20 at 1300, Until Discontinu [...] ed, Routine insulin Yes 5U 5 Units, [facility] s lispro 12-11 Subcutaneo ity of (human) 18:00: us, TID [place] (HumaLOG 00 MEALS, Medical U-100) First dose Branch injection 5 on Fri Units 12/11/20 at 1200, Until Discontinu ed Polyethylen Yes 17g 17 g, [facility] rs e Glycol 12-11 Oral, ity of 3350 17:47: [id number], [place] (MIRALAX) 05 Starting Medica l powder [...]
Duration of therapy: 72 hours sennosides- Yes [id number] 1{tbl} Take 1 Univers docusate 2-09 tablet by ity of sodium 00:00: mouth 2 [place] 8.6-50 mg 00 (two) Medical per tablet times Branch daily. hydrocortis Yes [id number] Apply to [facility] one 2.5 % 11-21 affected ity of cream 00:00: area(s) 2 [place] 00 (two) Medical times Branch daily. blood sugar Yes [id number] Use to [facility] diagnostic 11-21 check ity of (FREESTYLE 00:00: blood [place] LITE 00 glucose Medical STRIPS) 4-5 times Branch strip daily. Polyethylen Yes [id number] 17g Take 1 Univers e Glycol 2-09 Packet by ity of 3350 17 00:00: mouth [place] gram powder 00 every 24 Medi jose c (twenty-fo Branch ur) hours as needed for Constipati on. sennosides- Yes [id number] 1{tbl} Take 1 Univers docusate 2-09 tablet by ity of sodium 00:00: mouth 2 [place] 8.6-50 mg 00 (two) Medical per tablet times Branch daily. hydrocortis 2020-0 Yes [id number] Apply to Univers one 2.5 % 2-09 affected ity of cream 00:00: area(s) 2 [place] 00 (two) Medical times Branch daily. blood sugar 2020-0 Yes [id number] Use to Univers diagnostic 11-21 check ity of (FREESTYLE 00:00: blood [place] LITE 00 glucose Medical STRIPS) 4-5 times Branch strip daily. Polyethylen 2020-0 Yes [id number] 17g Take 1 Univers e Glycol 2-09 Packet by ity of 3350 17 00:00: mouth [place] gram powder 00 every 24 Medi jose c (twenty-fo Branch ur) hours as needed for Constipati on. sennosides- 2020-0 Yes [id number] 1{tbl} Take 1 Univers docusate 2-09 tablet by ity of sodium 00:00: mouth 2 [place] 8.6-50 mg 00 (two) Medical per tablet times Branch daily. hydrocortis 2020-0 Yes [id number] Apply to Univers one 2.5 % 2-09 affected ity of cream 00:00: area(s) 2 [place] 00 (two) Medical times Branch daily. blood sugar 2020-0 Yes [id number] Use to [facility] diagnostic 11-21 check ity of (FREESTYLE 00:00: blood [place] LITE 00 glucose Medical STRIPS) 4-5 times Branch strip daily. Polyethylen 2020-0 Yes [id number] 17g Take 1 Univers e Glycol 2-09 Packet by ity of 3350 17 00:00: mouth [place] gram powder 00 every 24 Medi jose c (twenty-fo Branch ur) hours as needed for Constipati on. sennosides- 2020-0 Yes [id number] 1{tbl} Take 1 Univers docusate 2-09 tablet by ity of sodium 00:00: mouth 2 [place] 8.6-50 mg 00 (two) Medical per tablet times Branch daily. hydrocortis 2020-0 Yes [id number] Apply to Univers one 2.5 % 2-09 affected ity of cream 00:00: area(s) 2 [place] 00 (two) Medical times Branch daily. blood sugar Yes [id number] Use to [facility] diagnostic 11-21 check ity of (FREESTYLE 00:00: blood [place] LITE 00 glucose Medical STRIPS) 4-5 times Branch strip daily. Polyethylen Yes [id number] 17g Take 1 Univers e Glycol 11-21 Packet by ity of 3350 17 00:00: mouth [place] gram powder 00 every 24 Medi jose c (twenty-fo Branch ur) hours as needed for Constipati on. Insulin 2020- No [id number] 15U inject 15 Univers Glargine 11-21 Units ity of (LANTUS 00:00: 05:59 under the [place] SOLOSTAR 00 :00 skin every Medic al U-100 morning Branch INSULIN) for 30 100 unit/mL days. (3 mL) injection venlafaxine 2020- No [id number] 150mg Take 1 Univers XR 150 mg 11-21 capsule by ity of 24 hr 00:00: 05:59 mouth 3 [place] capsule 00 :00 (three) Medical times Branch daily for 30 days. Insulin 2020- No [id number] 15U inject 15 Univers Glargine 11-21 Units ity of (LANTUS 00:00: 05:59 under the [place] SOLOSTAR 00 :00 skin every Medic al U-100 morning Branch INSULIN) for 30 100 unit/mL days. (3 mL) injection venlafaxine 2020- No [id number] 150mg Take 1 Univers XR 150 mg 11-21 capsule by ity of 24 hr 00:00: 05:59 mouth 3 [place] capsule 00 :00 (three) Medical times Branch daily for 30 days. triamcinolo 2020- No [id number] Apply to [facility] ne 11-21 area(s) 2 ity of acetonide 00:00: 00:00 (two) [place] 0.1 % cream 00 :00 times Medical daily. Branch cephALEXin 2020- No [id number] 1000mg Take 2 Univers 500 mg 11-21 capsules ity of capsule 00:00: 00:00 by mouth 3 [place] 00 :00 (three) Medical times Branch daily. doxycycline 2020- No [id number] 100mg Take 1 Univers hyclate 100 11-21 capsule by i ty of mg capsule 00:00: 00:00 mouth [place] 00 :00 every 12 Medical (twelve) Branch hours. lactobacill 2020- No [id number] 1{tbl} Take 1 Univers us 11-21 tablet by ity of acidophilus 00:00: 00:00 mouth 2 [place] 25 million 00 :00 (two) Medical cell -100 times Branch mg captab daily. bisacodyL 2020- No [id number] 10mg Insert 1 Univers 10 mg 11-21 Suppositor ity of suppository 00:00: 00:00 y into [place] 00 :00 rectum at Medical bedtime as Branch needed for Constipati on. ALPRAZolam 2020- No [id number] .25mg Take 1 Univers (XANAX) 11-21 tablet by ity of 0.25 mg 00:00: 00:00 mouth 2 [place] tablet 00 :00 (two) Medical times Branch daily. hydrOXYzine 2020- No [id number] 20mg Take 2 Univers 10 mg 11-21 [...] ity of (NOVOLOG 01:13: under the [facility] FLEXPEN SC) 36 skin. Medical Branch [...] 34 :00 Medical Branch hydrocortis 2019- Yes [id number] Apply to Univers one 2.5 % 1-11 affected ity of cream 00:00: area(s) 2 [place] 00 (two) Medical times Branch daily. hydrOXYzine 2019- Yes [id number] 20mg Take 2 Univers 10 mg 1-11 tablets by ity of tablet 00:00: mouth [place] 00 every 8 Medical (eight) Branch hours as needed for Itching or Anxiety. Polyethylen 2019- Yes [id number] 17g Take 1 Univers e Glycol 1-11 Packet by ity of 3350 17 00:00: mouth [place] gram powder 00 every 24 Medi jose c (twenty-fo Branch ur) hours as needed for Constipati on. hydrocortis 2019-10 Yes [id number] Apply to Univers one 2.5 % 1-11 affected ity of cream 00:00: area(s) 2 [place] 00 (two) Medical times Branch daily. hydrOXYzine 2019- Yes [id number] 20mg Take 2 Univers 10 mg 1-11 tablets by ity of tablet 00:00: mouth [place] 00 every 8 Medical (eight) Branch hours as needed for Itching or Anxiety. Polyethylen 2019- Yes [id number] 17g Take 1 Univers e Glycol 1-11 Packet by ity of 3350 17 00:00: mouth [place] gram powder 00 every 24 Medi jose c (twenty-fo Branch ur) hours as needed for Constipati on. hydrocortis 2019- Yes [id number] Apply to Univers one 2.5 % 1-11 affected ity of cream 00:00: area(s) 2 [place] 00 (two) Medical times Branch daily. hydrOXYzine 2019- Yes [id number] 20mg Take 2 Univers 10 mg 1-11 tablets by ity of tablet 00:00: mouth [place] 00 every 8 Medical (eight) Branch hours as needed for Itching or Anxiety. Polyethylen 2020- Yes [id number] 17g Take 1 Univers e Glycol 1-11 Packet by ity of 3350 17 00:00: mouth [place] gram powder 00 every 24 Medi jose c (twenty-fo Branch ur) hours as needed for Constipati on. hydrocortis 2019- Yes [id number] Apply to Univers one 2.5 % 1-11 affected ity of cream 00:00: area(s) 2 [place] 00 (two) Medical times Branch daily. hydrOXYzine 2019- Yes [id number] 20mg Take 2 Univers 10 mg 1-11 tablets by ity of tablet 00:00: mouth [place] 00 every 8 Medical (eight) Branch hours as needed for Itching or Anxiety. Polyethylen 2019- Yes [id number] 17g Take 1 Univers e Glycol 1-11 Packet by ity of 3350 17 00:00: mouth [place] gram powder 00 every 24 Medi jose c (twenty-fo Branch ur) hours as needed for Constipati on. hydrocortis 2019- Yes [id number] Apply to Univers one 2.5 % 1-11 affected ity of cream 00:00: area(s) 2 [place] 00 (two) Medical times Branch daily. hydrOXYzine 2019- Yes [id number] 20mg Take 2 Univers 10 mg 1-11 tablets by ity of tablet 00:00: mouth [place] 00 every 8 Medical (eight) Branch hours as needed for Itching or Anxiety. Polyethylen 2020- Yes [id number] 17g Take 1 Univers e Glycol 1-11 Packet by ity of 3350 17 00:00: mouth [place] gram powder 00 every 24 Medi jose c (twenty-fo Branch ur) hours as needed for Constipati on. hydrocortis 2019- Yes [id number] Apply to Univers one 2.5 % 1-11 affected ity of cream 00:00: area(s) 2 [place] 00 (two) Medical times Branch daily. hydrOXYzine 2020- Yes [id number] 20mg Take 2 Univers 10 mg 1-11 tablets by ity of tablet 00:00: mouth [place] 00 every 8 Medical (eight) Branch hours as needed for Itching or Anxiety. Polyethylen 2020- Yes [id number] 17g Take 1 Univers e Glycol 1-11 Packet by ity of 3350 17 00:00: mouth [place] gram powder 00 every 24 Medi jose c (twenty-fo Branch ur) hours as needed for Constipati on. hydrocortis 2019-10 Yes [id number] Apply to Univers one 2.5 % 1-11 affected ity of cream 00:00: area(s) 2 [place] 00 (two) Medical times Branch daily. hydrOXYzine 2019-10 Yes [id number] 20mg Take 2 Univers 10 mg 1-11 tablets by ity of tablet 00:00: mouth [place] 00 every 8 Medical (eight) Branch hours as needed for Itching or Anxiety. Polyethylen 2019-10 Yes [id number] 17g Take 1 Univers e Glycol 1-11 Packet by ity of 3350 17 00:00: mouth [place] gram powder 00 every 24 Medi jose c (twenty-fo Branch ur) hours as needed for Constipati on. triamcinolo 2019-10 2020- No [id number] Apply to [facility] 10-23 area(s) 2 ity of acetonide 00:00: 05:59 (two) [place] 0.1 % cream 00 :00 times Medical daily for Branch 14 days. triamcinolo 2019-10 2020- No [id number] Apply to [facility] 10-23 area(s) 2 ity of acetonide 00:00: 05:59 (two) [place] 0.1 % cream 00 :00 times Medical daily for Branch 14 days. triamcinolo 2019-10 2020- No [id number] Apply to [facility] 10-23 area(s) 2 ity of acetonide [...] 1 mg 53 Starting Medi jose c [facility] Branch 08/22/20 at 0907, Until Discontinu ed, [...] 17:39: Q8HPRN, [place] mg 12 Starting Medical [facility] Branch 08/21/20 at 1139, Until Discontinu ed, Routine, Itching, Anxiety sennosides- 2019-10 Yes 1{tbl} 1 tablet, Univers docusate 10-21 Oral, ity of sodium 15:00: DAILY, [place] (SENOKOT-S) 00 First dose Me dical 8.6-50 mg on [facility] Branch per tablet 08/21/20 at 1 tablet [...] dose [place] capsule 150 00 on [facility] Medica l mg 08/21/20 at Branch 0800, Until Discontinu ed, Routine heparin 2019-10 Yes 5000U 5,000 Univers (porcine) 09 Units, ity of injection 14:00: Subcutaneo [place] 5,000 Units 00 us, Q12H, Med ical First dose Branch on Fri08/21/20 at 0800, Until Discontinu ed, Routine diphenhydrA 2019-10 2020- No 25mg 25 mg, Uni vers MINE 10-21 Oral, ity of (BENADRYL) 12:56: 17:39 Q8HPRN, [place] tablet 25 59 :43 Starting Medica l mg [facility] 08/21/20 at 0656, Until [facility] 08/21/20 at 1139, Routine, Itching, Mild Rash, Congestion /Allergies , alternate with hydroxyzin e hydrOXYzine 2019-10- No 10mg 10 mg, Uni vers (ATARAX) 10-21 Oral, ity of tablet 10 10:20: 12:57 Q6HPRN, [place] mg 22 :12 Starting [facility] 08/21/20 at 0420, Until [facility] 08/21/20 at 0657, Routine, Itching, Anxiety Sliding 2019-10 Yes Subcutaneo Univ ers Scale 10-21 us, Q4H, ity of Insulin - 10:00: First dose [place] Aspart 00 (after Medical (NOVOLOG) + last Branch Fsbg modificati Testing on) on [facility] 08/21/20 at 0400, Until Discontinu ed, Routine lidocaine 5 2019-10- No Topical, U nivers % ointment 10-21 ONCE, 1 ity o f 09:30: 09:14 dose, [facility] 00 :00 08/21/20 at [facility] 0330, Branch Routine Polyethylen 2019-10 Yes 17g 17 g, [facility] rs e Glycol 10-21 Oral, ity of 3350 08:29: [id number], [place] (MIRALAX) Starting Medica l powder [address] [facility] 08/21/20 at 0229, Until Discontinu ed, Routine, Constipati on lanolin 2019-10 Yes Topical, Univer s alcohol-mo- 10-21 PRN, ity of w.pet-ceres 08:26: Starting [place] (EUCERIN) 30 [facility] cream 08/21/20 at Branch 0226, Until Discontinu ed, Routine, Dermatitis /Rash ALPRAZolam 2019-10 Yes .25mg 0.25 mg, Un toi (XANAX) 10-21 Oral, ity of tablet 0.25 08:25: BIDPRN, [place] mg 41 Starting [facility] 08/21/20 at 0225, Until Discontinu ed, [...] Branch blood sugar Yes Use to [employer] ers diagnostic 4-25 check ity of (FREESTYLE 00:00: blood [place] LITE 00 glucose Medical STRIPS) 4-5 times Branch strip daily. blood sugar Yes Use to [employer] ers diagnostic 4-25 check ity of (FREESTYLE 00:00: blood [place] LITE 00 glucose Medical STRIPS) 4-5 times Branch strip daily. blood sugar Yes Use to [employer] ers diagnostic 4-25 check ity of (FREESTYLE 00:00: blood [place] LITE 00 glucose Medical STRIPS) 4-5 times Branch strip daily. blood sugar Yes Use to [employer] ers diagnostic 4-25 check ity of (FREESTYLE 00:00: blood [place] LITE 00 glucose Medical STRIPS) 4-5 times Branch strip daily. blood sugar Yes Use to [employer] ers diagnostic 4-25 check ity of (FREESTYLE [...] 13:00:00 148 mm[Hg] Univer sity of pressure [facility] Diastolic blood 2021-08-22 13:00:00 84 mm[Hg] Unive rsity of pressure [facility] Heart rate 2021-08-22 13:00:00 103 /min [facility] Respiratory rate 2021-08-22 13:00:00 18 /min Univ ersity of [facility] Oxygen saturation in 2021-08-22 13:00:00 95 /min University of Arterial blood by [facility] Pulse oximetry Branch Body temperature 2021-08-22 12:22:00 36.72 [facility] ersity of [place] [facility] Systolic blood 2020-12-17 18:35:00 139 mm[Hg] Univer sity of pressure [facility] Diastolic blood 2020-12-17 18:35:00 87 mm[Hg] Unive rsity of pressure [facility] Heart rate 2020-12-17 18:35:00 110 /min [facility] Body temperature 2020-12-17 18:35:00 37.72 [facility] ersity of [facility] Respiratory rate 2020-12-17 18:35:00 18 /min Univ ersity of [facility] Oxygen saturation in 2020-12-17 18:35:00 93 /min University of Arterial blood by [place] [employer] [facility] Pulse oximetry Branch Body height 2020-12-12 [...] /min University of Arterial blood by [place] [employer] jose c Pulse oximetry Branch Body height 2020-12-12 08:21:00 180.3 cm Universi ty [facility] [place] [facility] [place] Body weight 2020-12-12 08:21:00 103.42 kg Universi [...] /min University of Arterial blood by [place] [employer] jose c Pulse oximetry Branch Body weight [...] Branch Body temperature 2020-08-23 19:27:00 36 [place] Respiratory rate 2020-08-23 19:27:00 18 /min [facility] Oxygen saturation in 2020-08-23 19:27:00 93 /min [facility] Arterial blood by [facility] Pulse oximetry [place] Body weight 2020-08-21 07:20:00 104.962 kg [facility] BMI 2020-08-21 07:20:00 32.27 kg/m2 [facility] Procedures Procedure Date / Time Performing Clinician Source Performed POCT GLUCOSE (AUTOMATED) 2020-12-17 15:42:00 [facility]EL 2020-12-17 10:45:00 Paul Bean [facility] (NA, K, CL, CO2, GLUCOSE, [facility] BUN, CREATININE, CA) CBC WITH DIFF 2020-12-17 10:45:00 Paul Bean [facility] POCT GLUCOSE (AUTOMATED) 2020-12-17 02:36:00 Harrison, Favioal G Uni [facility] XR TIBIA FIBULA 2 VW LEFT 2020-12-16 23:38:00 Paul Bean U [facility] POCT GLUCOSE (AUTOMATED) 2020-12-16 23:20:00 Harrison, Premal G Uni [facility] POCT GLUCOSE (AUTOMATED) 2020-12-16 20:10:00 Harrison[facility]SE (AUTOMATED) 2020-12-16 14:43:00 Harrison, Premal G Uni [facility] BASIC METABOLIC PANEL 2020-12-16 13:51:00 Paul Bean [facility] (NA, K, CL, CO2, GLUCOSE, [facility] BUN, CREATININE, CA) CBC WITH DIFF 2020-12-16 13:51:00 Paul Bean [facility] POCT GLUCOSE (AUTOMATED) 2020-12-16 04:00:00 Harrison, [facility] PO[facility] GLUCOSE (AUTOMATED) 2020-12-16 00:14:00 Harrison, Premal G Uni versity of [facility] CT CHEST PULMONARY 2020-12-15 22:29:38 Paul Bean [facility] ([facility]) 2020-12-15 19:26:00 Harrison, Premal G Uni versity of [facility] POCT GLUCOSE (AUTOMATED) 2020-12-15 15:13:00 Harrison, Premal G Uni versity of [facility] HB ECG ROUTINE & RHYTHM 2020-12-15 14:25:[address] [facility] MAGNESIUM 2020-12-15 12:01:00 Paul Bean Sivakumar [facility] BASIC METABOLIC PANEL 2020-12-15 12:01:00 Paul Bean [facility] (NA, K, CL, CO2, GLUCOSE, [facility] BUN, CREATININE, CA) CBC WITH DIFF 2020-12-15 12:01:00 Paul Bean [facility] POCT GLUCOSE (AUTOMATED) 2020-12-15 03:57:00 Harrison, Premal G Uni versity of [facility] POCT GLUCOSE (AUTOMATED) 2020-12-14 23:31:00 Harrison, Premal G Uni versity of [facility] POCT GLUCOSE (AUTOMATED) 2020-12-14 19:08:00 Harrison, Premal G Uni versity of [facility] POCT GLUCOSE (AUTOMATED) 2020-12-14 15:11:00 Harrison, Premal G Uni versity of [facility] POCT GLUCOSE (AUTOMATED) 2020-12-14 02:36:00 Harrison, Premal G Uni versity of [facility] POCT GLUCOSE (AUTOMATED) 2020-12-13 23:32:00 Harrison, Premal G Uni versity of [facility] POCT GLUCOSE (AUTOMATED) 2020-12-13 18:08:00 Harrison, Premal G Uni versity of [facility] BASIC METABOLIC PANEL 2020-12-13 15:39:00 Paul Bean [facility] (NA, K, CL, CO2, GLUCOSE, [facility] BUN, CREATININE, CA) CBC WITH DIFF 2020-12-13 15:39:00 Paul Bean Sivakumar [facility] POCT GLUCOSE (AUTOMATED) 2020-12-13 14:06:00 Harrison[facility] POCT GLUCOSE (AUTOMATED) 2020-12-13 03:07:00 Harrison, [facility] POCT GLUCOSE (AUTOMATED) 2020-12-12 23:52:00 Harrison, [facility]al [facility] POCT GLUCOSE (AUTOMATED) 2020-12-12 20:28:00 Harrison[facility] PO[facility]SE (AUTOMATED) 2020-12-12 19:14:00 Harrison, [facility]al [facility] POCT GLUCOSE (AUTOMATED) 2020-12-12 14:33:00 Harrison, [facility]al [facility] MAGNESIUM 2020-12-12 08:58:00 [facility] BASIC METABOLIC PANEL 2020-12-12 08:58:00 [facility] (NA, K, CL, CO2, GLUCOSE, [facility] BUN, CREATININE, CA) CBC WITH DIFF 2020-12-12 08:58:00 Paul Bean Sivakumar [facility] US ABDOMEN LIMITED 2020-12-12 06:32:26 [facility] POCT GLUCOSE (AUTOMATED) 2020-12-12 03:40:00 Harrison, Premal G Uni [facility] POCT GLUCOSE (AUTOMATED) 2020-12-12 00:06:00 Harrison, Premal G Uni [facility] XR HIPS 3 VW LEFT 2020-12-11 20:20:00 [facility] HB ECG ROUTINE & RHYTHM 2020-12-11 20:04:06 Cailin Romo [facility] VITAMIN B6, PLASMA 2020-12-11 19:17:00 [facility] POCT GLUCOSE (AUTOMATED) 2020-12-11 19:06:00 Rene Harrison [facility] CREATINE KINASE 2020-12-11 18:22:00 Clarisse Hannon [facility] VITAMIN B12, LEVEL 2020-12-11 18:22:00 Paul Bean [facility] FOLATE 2020-12-11 18:22:00 Vikas [facility] THYROID STIMULATING 2020-12-11 18:22:00 Cailin Romo [facility] HORMONE [facility] PROCALCITONIN 2020-12-11 18:22:00 Vikas [facility] VITAMIN B1 (THIAMINE), 2020-12-11 18:22:00 Paul Bean Sivakumar [facility] WHOLE BLOOD [facility] HEAD WO CONTRAST 2020-12-11 14:07:35 Sweetie Stout [facility] URINALYSIS 2020-12-11 13:44:00 Singer [facility] URINE CULTURE 2020-12-11 13:44:00 Singer [facility] COVID-19 (ID NOW RAPID 2020-12-11 12:31:00 Paco Lacey [facility] TESTING) [facility] LAB ONLY COVID 2020-12-11 12:31:00 Paco Lacey [facility] XR CHEST 1 VW 2020-12-11 12:07:24 Singer [facility] BLOOD CULTURE SCREEN 2020-12-11 12:02:00 Paco Lacey [facility] MAGNESIUM 2020-12-11 12:02:00 Paul Bean [facility] FERRITIN SERUM 2020-12-11 12:02:00 Darnell Beanaham Sivakumar [facility] COMP. METABOLIC PANEL 2020-12-11 12:02:00 Paco Lacey [facility] ([id number]) [facility] CBC WITH DIFF 2020-12-11 12:02:00 Singer [facility] LACTIC ACID WHOLE BLOOD 2020-12-11 12:02:00 Paco Lacey [facility] BLOOD CULTURE SCREEN 2020-12-11 11:42:00 Paco Lacey [facility] EMERGENCY SERVICES 2020-12-11 06:01:00 Doctor Tabitha [facility] AGREEMENTS AND [facility] AUTHORIZATIONS HOSPITAL ADMISSION 2020-12-11 06:01:00 Doctor Tabitha [facility] Name [facility] HOME HEALTH - OTHER 2020-11-11 06:01:00 Doctor Tabitha [facility] Name Medical [facility] HEALTH - OTHER 2020-10-30 06:01:00 Doctor Tabitha [facility] Name [facility] EXTERNAL PROVIDER RECORDS 2020-09-01 06:01:00 Doctor Tabitha [facility] POCT GLUCOSE (AUTOMATED) 2020-08-23 18:09:00 [facility] ([facility]) 2020-08-23 14:14:00 Kelly Washington [facility] MAGNESIUM 2020-08-23 11:18:00 Gentry, [facility] BASIC METABOLIC PANEL 2020-08-23 11:18:00 [facility] (NA, K, CL, CO2, GLUCOSE, Medica l Branch BUN, CREATININE, CA) CBC WITH DIFF 2020-08-23 11:18:00 [facility] POCT GLUCOSE (AUTOMATED) 2020-08-23 10:21:00 Kelly Wasihngtonity [facility] POCT GLUCOSE (AUTOMATED) 2020-08-23 05:55:00 Kelly Washingtonity [facility] POCT GLUCOSE (AUTOMATED) 2020-08-23 03:00:00 Kelly Washingtonity of [facility] POCT GLUCOSE (AUTOMATED) 2020-08-22 23:38:00 Kelly Washington versity [facility] POCT GLUCOSE (AUTOMATED) 2020-08-22 19:04:00 Washington, Kelly Uni [facility] POCT GLUCOSE (AUTOMATED) 2020-08-22 13:49:00 Kelly Washington versity [facility] MAGNESIUM 2020-08-22 10:10:00 Ramya [facility] HEPATIC FUNCTION PANEL 2020-08-22 10:10:00 Jill Aguila [facility] ([id number]) (ALB,T.PRO,BILI Medical Branch T,BU/BC,ALT,AST,ALK PHOS) BASIC METABOLIC PANEL 2020-08-22 10:10:00 Gentry, [facility] (NA, K, CL, CO2, GLUCOSE, Medica l Branch BUN, CREATININE, CA) LIPID PANEL ([id number])(TOTAL 2020-08-22 10:10:00 Gentry, [facility] TRIGLYCERID[facility], HDL) CBC WITH DIFF 2020-08-22 10:10:00 Gentry [facility] POCT GLUCOSE (AUTOMATED) 2020-08-22 10:10:00 Kelly Washington [facility] POCT GLUCOSE (AUTOMATED) 2020-08-22 07:13:00 Kelly Washington [facility] POCT GLUCOSE (AUTOMATED) 2020-08-22 02:24:00 Kelly Washington [facility] POCT GLUCOSE (AUTOMATED) 2020-08-21 23:40:00 Kelly Washington [facility] POCT GLUCOSE (AUTOMATED) 2020-08-21 18:10:00 Kelly Washington [facility] POCT GLUCOSE (AUTOMATED) 2020-08-21 13:39:00 Kelly Washington [facility] ETHANOL 2020-08-21 12:35:00 Jos Quiroz [facility] ACTIVATED PARTIAL 2020-08-21 12:35:00 Padmini [facility] THRMPLAS [facility] GALV ONLY - SYPHILIS 2020-08-21 12:35:00 Padmini [facility] IGG/IGM [facility] LACTATE DEHYDROGENASE 2020-08-21 10:09:00 Gentry, [facility] GALV/CLC ONLY - URINE 2020-08-21 10:09:00 Jos Quiroz [facility] DRUG (IMMUNOASSAY) - 4 ER Medica l Branch PANEL URINALYSIS 2020-08-21 10:09:00 Ramya, [facility] URINE CULTURE 2020-08-21 10:09:00 Ramya, [facility] PROCALCITONIN 2020-08-21 10:09:00 Ramya, [facility] POCT GLUCOSE (AUTOMATED) 2020-08-21 09:41:00 Kelly Washington [facility] PROTHROMBIN TIME / INR 2020-08-21 08:32:00 Ramya, [facility] ACTIVATED PARTIAL 2020-08-21 08:32:00 Gentry, [facility] THRMPLAS [facility] C-REACTIVE PROTEIN 2020-08-21 08:31:00 Gentry, [facility] HEPATIC FUNCTION PANEL 2020-08-21 08:31:00 Ramya, [facility] ([id number]) (ALB,T.PRO,BILI [facility] T,BU/BC,ALT,AST,ALK PHOS) BASIC METABOLIC PANEL 2020-08-21 08:31:00 Gentry, [facility] (NA, K, CL, CO2, GLUCOSE, [facility] BUN, CREATININE, CA) SEDIMENTATION RATE 2020-08-21 08:31:00 Gentry, [facility] CBC WITH DIFF 2020-08-21 08:31:00 Gentry, [facility] GLYCOSYLATED HEMOGLOBIN 2020-08-21 08:31:00 Gentry, [facility] (A1C) [facility] HIV 1/2 AG-AB WITH REFLEX 2020-08-21 08:31:00 Kelly [facility] COVID-[facility] (ID NOW RAPID 2020-08-21 08:20:00 Gentry, [facility] TESTING) Medical Branch LAB ONLY COVID 2020-08-21 08:20:00 Ramya, [facility] Encounters Start End Encounter Admission Attending Care Care Encounter Source Date/Time Date/Time Type Type Clinicians Facility Department ID 2020-08-21 Inpatient Shayy WASHINGTON [facility] [id number] Univers 01:07:00 KELLY cantu [facility] 2021-08-22 2021-08-22 [facility] [id number] Univers 06:21:00 08:02:00 SWEETIE cantu [facility] 2021-08-22 2021-08-22 [facility] [id number] Univers 06:21:00 08:02:00 Sweetie LOTT [id number] i ty [place] [id number] [facility] [address] [place] 2021-08-09 2021-08-09 Outpatient ZAKI, [facility] [id number] [facility] 10:27:03 10:27:03 ADRIANA lopez of Medicin e 2020-12-28 2020-12-28 Telephone [facility] 1.2.840.114 [id number] 00:00:00 00:00:00 Calvin H PRIMARY [id number] CARE 4.2.7.2.686 PAVILLION [id number] 220 2020-12-28 2020-12-28 Telephone [facility] 1.2.840.114 [id number] Univers 00:00:00 00:00:00 Calvin H PRIMARY [id number] it y of CARE 4.2.7.2.686 [facility] [id number] Ok dical 220 Branch 2020-12-19 2020-12-19 Transition Tuan Peters 1.2.840.114 [id number] 00:00:00 00:00:00 of Care Ruchi Braswell [id number] [place] 4.2.7.2.686 [id number] 2020-12-19 2020-12-19 Transition Tuan Peters 1.2.840.114 [id number] Univers 00:00:00 00:00:00 of Care Ruchi Braswell [id number] it y [place] [id number] [facility] 403 Branch 2020-12-11 2020-12-17 [facility] Paco Lacey 1.2.840.1 [id number] 05:11:00 16:00:00 Encounter Rene [place] [id number] [facility] ([place], [place]) 4.2.7.2.686 [id number] [facility] 2020-12-11 2020-12-17 [facility] 1.2.840.[id number] [facility] 05:11:00 16:00:00 Encounter Rene Harrison Monique [id number] [facility] ([place], [place]) 4.2.7.2.686 [place] [id number] [facility] [place] 2020-12-11 2020-12-11 Emergency X [facility] ERT [id number] Univers 05:11:00 05:11:00 [facility] 2020-11-16 2020-11-16 Emergency X [facility] ERT [id number] Univers 09:31:00 09:31:00 [facility] 2020-11-11 2020-11-11 Orders Doctor CUI 1.2.840.114 [id number] 00:00:00 00:00:00 Only UnassignedMONIQUE 350.1.13.10 [place] [facility] 4.2.7.2.686 [id number] 009 2020-11-11 2020-11-11 Orders Doctor CUI 1.2.840.114 [id number] Univers 00:00:00 00:00:00 Only UnassignedMONIQUE 350.1.13.10 ity of [place] [facility] 4.2.7.2.686 Jeff as [phone] [facility] 009 Branch 2020-11-07 2020-11-07 Telephone Wilder [facility] [id number] 00:00:00 00:00:00 Angi Lott 350.1.13.10 [place] 4.2.7.2.686 Professio [phone] [address] 2020-11-07 2020-11-07 Telephone Wilder [facility] [id number] [facility] 00:00:00 00:00:00 Sendsiobhna CortezWongHawaWong Lott 350.1.13.10 ity of [place] Profess[place] [phone] [place] 877459 [facility] 2020-10-30 2020-10-30 Orders Doctor BASILIA 1.2.840.114 [id number] 00:00:00 00:00:00 Only Unassigned, MONIQUE 350.1.13.10 [place] [facility] 4.2.7.2.686 [id number] [facility] 2020-10-30 2020-10-30 Orders Doctor BASILIA 1.2.840.114 [id number] Univers 00:00:00 00:00:00 Only Unassigned, MONIQUE 350.1.13.10 ity of [place] [facility] 4.2.7.2.686 Jeff as [phone] [address] 2020-09-26 2020-09-26 [facility]phone [facility] 1.2.840.114 [id number] 00:00:00 00:00:00 [facility] 350.1.13.10 CLINICS 4.2.7.2.686 [id number] [facility] 2020-09-26 2020-09-26 Telephone [facility] 1.2.840.114 [id number] Univers 00:00:00 00:00:00 [facility] 350.1.13.10 i ty of CL[place] [phone] [address] 2020-09-01 2020-09-01 Orders Doctor BASILIA 1.2.840.114 [id number] 00:00:00 00:00:00 Only Unassigned, MONIQUE 350.1.13.10 [place] [facility] 4.2.7.2.686 [id number] 009 2020-09-01 2020-09-01 Orders Doctor BASILIA 1.2.840.114 [id number] Univers 00:00:00 00:00:00 Only Unassigned, MONIQUE 350.1.13.10 [facility] 4.2.7.2.686 Jeff as [id number] [facility] 009 Branch 2020-08-25 2020-08-25 Transition Tuan Peters 1.2.840.114 [id number] 00:00:00 00:00:00 of Care Ruchiliban Garciay 350.1.13.10 [place] 4.2.7.2.686 [phone] [facility] 2020-08-25 2020-08-25 Transition Tuan Peters 1.2.840.[id number] [facility] 00:00:00 00:00:00 of Care Ruchiliban Garciay 350.1.13.10 it y of [place] [phone] [address] 2020-08-21 2020-08-23 [facility] Ayleen 1.2.840.114 [id number] 01:07:00 18:35:00 Encounter Kelly Amaya 350.1.13.10 [facility] 4.2.7.2.686 [id number] [facility] 2020-08-21 2020-08-23 [facility] [id number] [facility] 01:07:00 18:35:00 Encounter Mukul Gallardo 350.1.13. 10 ity of [facility] 4.2.7.2.686 Jeff as [phone] [address] Results Test Description Test Time Test Comments Results Result Comments Source POCT GLUCOSE (AUTOMATED) 2020-12-17 15:43:35 Test Item Value Reference Range Interpretation Comme nts POCT GLU (test code = 6963976905) 129 mg/dL 70-110 H Lab Interpretation (test code = 58633-7) Abnormal [facility] METABOLIC PANEL (NA, K, CL, CO2, GLUCOSE, BUN, CREATININE, CA)2020-12-17 11:45:07 Test Item Value Reference Range Interpretation Comments NA (test code = 137 mmol/L 135-145 5671714922) K (test code = 3.5 mmol/L 3.5-5.0 1789153682) CL (test code = 103 mmol/L 98-108 0113102660) CO2 TOTAL (test code = 26 mmol/L 23-31 4767261661) AGAP (test code = 2-16 6774249265) BUN (test code = 11 mg/dL 7-23 6123743016) GLUCOSE (test code = 175 mg/dL 70-110 H 7225656988) CREATININE (test code = 0.62 mg/dL 0.60-1.25 3516293571) CALCIUM (test code = 9.0 mg/dL 8.6-10.6 3537823019) eGFR Calculation mL/min/1.73m2 (Non-) (test code = 5702707333) eGFR Calculation mL/min/1.73m2 () (test code = 4303701723) JAMES (test code = JAMES) Association of [...] tests). Lab Interpretation Abnormal (test code = 40302-3) [facility] WITH [id number] 11:07:27 Test Item Value Reference Range Interpretation [...] RDW-SD (test code = 45.2 fL 38.5-51.6 84133-8) RDW-CV (test code = 16.9 % 12.1-15.4 H 788-0) PLT (test code = See_Comment H [Automated 777-3) message] The sy stem which generated this result transmitted reference range : 150 - 328 10*3/ ?L. The reference r tortio was not used to interpret this result as normal/abnormal . MPV (test code = 8.1 fL 9.8-13.0 L 28480-2) NRBC/100 WBC (test See_Comment [Automat ed code = 6986233245) message] The system which generated this result transmitted reference range : 0.0 - 10.0 /100 WBCs. The refer ence range was not u sed to interpret th is result as normal/abnormal . NRBC x10^3 (test code <0.01 See_Comment [Auto mated = 6630650077) message] The s ystem which generated this result transmitted reference range : 10*3/?L. The reference range was not used to interpret this result as normal/abnormal . GRAN MAT (NEUT) % 72.8 % (test code = 770-8) IMM GRAN % (test code 0.60 % = 3193920736) LYMPH % (test code = 18.4 % 736-9) MONO % (test code = 5.7 % 5905-5) EOS % (test code = 1.8 % 713-8) BASO % (test code = 0.7 % 706-2) GRAN MAT x10^3(ANC) 8.23 10*3/uL 1.99-6.95 H (test code = 0123876888) IMM GRAN x10^3 (test 0.07 10*3/uL 0.00-0.06 H code = 3480836348) LYMPH x10^3 (test code 2.08 10*3/uL 1.09-3.23 = 731-0) MONO x10^3 (test code 0.65 10*3/uL 0.36-1.02 = 742-7) EOS x10^3 (test code = 0.20 10*3/uL 0.06-0.53 711-2) BASO x10^3 (test code 0.08 10*3/uL 0.01-0.09 = 704-7) Lab Interpretation Abnormal (test code = 74970-0) [facility] 06:03:38 Test Item Value Reference Range Interpretation Comments POCT GLU (test code = 7595039191) 75 mg/dL 70-110 Lab Interpretation (test code = Normal 32005-8) [facility], [id number] 00:01:00 Test Item Value Reference Range Interpretation Comments VIT B6 (test code = 13.1 nmol/L 20.0-125.0 L INTERPRE TIVE 80951-4) INFORMATION: Vi tamin B6 (Pyridoxal 5-Phosphate) Pyridoxal 5'-phosphate me asured in a specimen collected follo wing an 8-hour or overnight fast accurately clara cates vitamin B6 nutritional sta tus. Non-fasting spe cimen concentration reflects recent vitamin intake. This test was develo ped and its perform ance characteristics determined by [facility]. I t has not been cleare d or approved by the [place] Food and Drug Administration. This test was perfor med in a CLIA certifie d laboratory and is intended for cl inical purposes.Perfor med By: [address] [place] [address] [id number] Director: Namrata Klein MD Lab Interpretation Abnormal (test code = 22173-3) [facility] TIBIA FIBULA 2 VW [id number] 23:57:09 Tricompartmental knee joint osteoarthrosis.XR TIBIA FIBULA [...] No acute fracture or dislocation.IMPRESSIONTricompartmental knee joint osteoarthrosis.[facility] GLUCOSE (AUTOMATED) 2020-12-16 23:27:00 Test Item Value Reference Range Interpretation Comments POCT GLU (test code = 2641137249) 114 mg/dL 70-110 H Lab Interpretation (test code = Abnormal 58323-3) [facility] GLUCOSE (AUTOMATED)2020-12-16 20:12:00 Test Item Value Reference Range Interpretation Comments POCT GLU (test code = 6476978780) 105 mg/dL 70-110 Lab Interpretation (test code = Normal 19079-4) [facility] GLUCOSE (AUTOMATED)2020-12-16 14:44:00 Test Item Value Reference Range Interpretation Comments POCT GLU (test code = 1337973128) 153 mg/dL 70-110 H Lab Interpretation (test code = Abnormal 67474-3) [facility] METABOLIC PANEL (NA, K, CL, CO2, GLUCOSE, BUN, CREATININE, CA)2020-12-16 14:23:00 Test Item Value Reference Range Interpretation Comments NA (test code = 138 mmol/L 135-145 9299128987) K (test code = 3.4 mmol/L 3.5-5.0 L 9713040255) CL (test code = 100 mmol/L 98-108 9555823538) CO2 TOTAL (test code = 31 mmol/L 23-31 5307048233) AGAP (test code = 2-16 9151837544) BUN (test code = 11 mg/dL 7-23 4183640816) GLUCOSE (test code = 162 mg/dL 70-110 H 3466119531) CREATININE (test code = 0.64 mg/dL 0.60-1.25 9938380951) CALCIUM (test code = 8.9 mg/dL 8.6-10.6 9978052767) eGFR Calculation mL/min/1.73m2 (Non-) (test code = 4793217504) eGFR Calculation mL/min/1.73m2 () (test code = 7658888133) JAMES (test code = JAMES) Association of [...] tests). Lab Interpretation Abnormal (test code = 78005-2) [facility] WITH [id number] 14:05:00 Test Item Value Reference Range Interpretation [...] RDW-SD (test code = 45.4 fL 38.5-51.6 45066-7) RDW-CV (test code = 17.0 % 12.1-15.4 H 788-0) PLT (test code = See_Comment H [Automated 777-3) message] The sy stem which generated this result transmitted reference range : 150 - 328 10*3/ ?L. The reference r torito was not used to interpret this result as normal/abnormal . MPV (test code = 8.0 fL 9.8-13.0 L 29345-0) NRBC/100 WBC (test See_Comment [Automat ed code = 5943586861) message] The system which generated this result transmitted reference range : 0.0 - 10.0 /100 WBCs. The refer ence range was not u sed to interpret th is result as normal/abnormal . NRBC x10^3 (test code <0.01 See_Comment [Auto mated = 2854709519) message] The s ystem which generated this result transmitted reference range : 10*3/?L. The reference range was not used to interpret this result as normal/abnormal . GRAN MAT (NEUT) % 70.0 % (test code = 770-8) IMM GRAN % (test code 0.70 % = 7761503106) LYMPH % (test code = 20.5 % 736-9) MONO % (test code = 7.1 % 5905-5) EOS % (test code = 1.0 % 713-8) BASO % (test code = 0.7 % 706-2) GRAN MAT x10^3(ANC) 9.44 10*3/uL 1.99-6.95 H (test code = 6909442244) IMM GRAN x10^3 (test 0.09 10*3/uL 0.00-0.06 H code = 9232759632) LYMPH x10^3 (test code 2.76 10*3/uL 1.09-3.23 = 731-0) MONO x10^3 (test code 0.96 10*3/uL 0.36-1.02 = 742-7) EOS x10^3 (test code = 0.13 10*3/uL 0.06-0.53 711-2) BASO x10^3 (test code 0.10 10*3/uL 0.01-0.09 H = 704-7) Lab Interpretation Abnormal (test code = 80406-6) [facility] # [id number] 13:01:00 Test Item Value Reference Range Interpretation Comments Blood Culture-Aerobic No organisms No growth Previo us (test code = 83325-8) isolated prelim inary verified result was Culture In Progress on 12/11/2020 at 100 1 CSTPrevious preliminary verified result was No growth a t 24 hours on 12/12/2020 at 070 1 CSTPrevious preliminary verified result was No growth a t 48 hours on 12/13/2020 at 070 1 CSTPrevious preliminary verified result was No growth a t 72 hours on 12/14/2020 at 070 1 [employer] Blood No organisms No growth Previous Culture-Anaerobic isolated preliminar y (test code = 04285-2) verifi ed result was Culture In Progress on 12/11/2020 at 100 1 CSTPrevious preliminary verified result was No growth a t 24 hours on 12/12/2020 at 070 1 CSTPrevious preliminary verified result was No growth a t 48 hours on 12/13/2020 at 070 1 CSTPrevious preliminary verified result was No growth a t 72 hours on 12/14/2020 at 070 1 [employer] Lab Interpretation Normal (test code = 35209-8) [facility] [id number] 13:01:00 Test Item Value Reference Range Interpretation Comments Blood Culture-Aerobic No organisms No growth Previo us (test code = 14114-9) isolated prelim inary verified result was Culture In Progress on 12/11/2020 at 100 1 CSTPrevious preliminary verified result was No growth a t 24 hours on 12/12/2020 at 070 1 CSTPrevious preliminary verified result was No growth a t 48 hours on 12/13/2020 at 070 1 CSTPrevious preliminary verified result was No growth a t 72 hours on 12/14/2020 at 070 1 [employer] Blood No organisms No growth Previous Culture-Anaerobic isolated preliminar y (test code = 61001-1) verifi ed result was Culture In Progress on 12/11/2020 at 100 1 CSTPrevious preliminary verified result was No growth a t 24 hours on 12/12/2020 at 070 1 CSTPrevious preliminary verified result was No growth a t 48 hours on 12/13/2020 at 070 1 CSTPrevious preliminary verified result was No growth a t 72 hours on 12/14/2020 at 070 1 [employer] Lab Interpretation Normal (test code = 32923-1) [facility] GLUCOSE (AUTOMATED)2020-12-16 04:01:00 Test Item Value Reference Range Interpretation Comments POCT GLU (test code = 1546892242) 156 mg/dL 70-110 H Lab Interpretation (test code = Abnormal 38549-7) [facility] GLUCOSE (AUTOMATED)2020-12-16 00:24:00 Test Item Value Reference Range Interpretation Comments POCT GLU (test code = 6333002900) 115 mg/dL 70-110 H Lab Interpretation (test code = Abnormal 25645-6) [facility] CHEST PULMONARY [id number] 23:34:55No pulmonary emboli. No interval change in [...] of intra and extrahepatic biliary du ctal dilatation.[facility] GLUCOSE (AUTOMATED) 2020-12-15 19:28:00 Test Item Value Reference Range Interpretation Comments POCT GLU (test code = 5318689865) 140 mg/dL 70-110 H Lab Interpretation (test code = Abnormal 50616-8) [facility] 15:26:00 Test Item Value Reference Range Interpretation Comments MAGNESIUM (test code = 5167851409) 2.2 mg/dL 1.7-2.4 Lab Interpretation (test code = Normal 65921-2) [facility]2020-12-15 15:15:00 Test Item Value Reference Range Interpretation Comments POCT GLU (test code = 2352247697) 181 mg/dL 70-110 H Lab Interpretation (test code = Abnormal 37053-1) [facility] (NA, K, CL, CO2, GLUCOSE, BUN, CREATININE, CA)2020-12-15 13:07:00 Test Item Value Reference Range Interpretation Comments NA (test code = 136 mmol/L 135-145 4009491675) K (test code = 3.6 mmol/L 3.5-5.0 2015064777) CL (test code = 96 mmol/L 98-108 L 0332143790) CO2 TOTAL (test code = 29 mmol/L 23-31 1398575969) AGAP (test code = 2-16 5491607707) BUN (test code = 12 mg/dL 7-23 5622963594) GLUCOSE (test code = 183 mg/dL 70-110 H 1571857345) CREATININE (test code = 0.70 mg/dL 0.60-1.25 5385522248) CALCIUM (test code = 9.2 mg/dL 8.6-10.6 6276642858) eGFR Calculation mL/min/1.73m2 (Non-) (test code = 3603618459) eGFR Calculation mL/min/1.73m2 () (test code = 6976646186) JAMES (test code = JAMES) Association of [...] tests). Lab Interpretation Abnormal (test code = 64590-0) [facility] WITH [id number] 12:32:00 Test Item Value Reference Range Interpretation Comments WBC (test code = See_Comment H [Automated 0390-2) message] The system which generated this result transmit rnoan reference range : 4.20 - 10.70 10*3/?L. The reference range was not used to interpret this result as normal/abnormal . RBC (test code = See_Comment H [Automated 839-8) message] The system which generated this result [...] RDW-SD (test code = 44.4 fL 38.5-51.6 10280-0) RDW-CV (test code = 17.7 % 12.1-15.4 H 788-0) PLT (test code = See_Comment H [Automated 777-3) message] The system which generated this result transmit ronan reference range : 150 - 328 10*3/ ?L. The reference range was not u sed to interpret th is result as normal/abnormal . MPV (test code = 8.1 fL 9.8-13.0 L 88448-2) NRBC/100 WBC (test See_Comment [Automat ed code = 0599506985) message] The system which generated this result transmit ronan reference range : 0.0 - 10.0 /100 WBCs. The reference range was not used to interpret this result as normal/abnormal . NRBC x10^3 (test code <0.01 See_Comment [Auto mated = 7461556443) message] The system which generated this result transmit ronan reference range : 10*3/?L. The reference range was not used to interpret this result as normal/abnormal . GRAN MAT (NEUT) % 74.5 % (test code = 770-8) IMM GRAN % (test code 0.70 % = 9926837738) LYMPH % (test code = 17.4 % 736-9) MONO % (test code = 6.8 % 5905-5) EOS % (test code = 0.2 % 713-8) BASO % (test code = 0.4 % 706-2) GRAN MAT x10^3(ANC) 11.99 10*3/uL 1.99-6.95 H (test code = 9233877164) IMM GRAN x10^3 (test 0.11 10*3/uL 0.00-0.06 H code = 4014695413) LYMPH x10^3 (test code 2.80 10*3/uL 1.09-3.23 = 731-0) MONO x10^3 (test code 1.10 10*3/uL 0.36-1.02 H = 742-7) EOS x10^3 (test code = 0.03 10*3/uL 0.06-0.53 L 711-2) BASO x10^3 (test code 0.06 10*3/uL 0.01-0.09 = 704-7) Lab Interpretation Abnormal (test code = 06453-1) [facility] GLUCOSE (AUTOMATED)2020-12-15 04:16:00 Test Item Value Reference Range Interpretation Comments POCT GLU (test code = 6472785335) 200 mg/dL 70-110 H Lab Interpretation (test code = Abnormal 62391-9) [facility]IT[facility] B[facility] (THIAMINE), WHOLE [id number] 00:30:00 Test Item Value Reference Range Interpretation Comments Vitamin B1, Whole 136 nmol/L 70-180 INTERPRETI VE INFORMATION: Blood (test code = Vitamin B 1, Whole Blood 63819-2) This assay júnior ures the concentration o f thiamine diphosphate (TD P), the primary active form of vitamin B1. Nick roximately 90 percent of v itamin B1 present in whol e blood is TDP. Thiamine a nd thiamine monoph osphate, which comprise the remaining 10 pe rcent, are not measured. T his test was developed a nd its performance characteristics determined by [facility]. I t has not been cleared or approved by the US Food and Drug Administration. This test was performed i n a CLIA certified labor atory and is intended for clinical purposes.Perfor med By: [facility] [place] [address] [id number] aboratory Director: Namrata Klein MD [facility] GLUCOSE (AUTOMATED)2020-12-14 23:35:00 Test Item Value Reference Range Interpretation Comments POCT GLU (test code = 0973959363) 151 mg/dL 70-110 H Lab Interpretation (test code = Abnormal 10916-9) [facility] GLUCOSE (AUTOMATED)2020-12-14 19:19:00 Test Item Value Reference Range Interpretation Comments POCT GLU (test code = 8707616514) 193 mg/dL 70-110 H Lab Interpretation (test code = Abnormal 94685-5) [facility] GLUCOSE (AUTOMATED)2020-12-14 15:22:00 Test Item Value Reference Range Interpretation Comments POCT GLU (test code = 9312182182) 221 mg/dL 70-110 H Lab Interpretation (test code = Abnormal 96266-3) [facility] GLUCOSE (AUTOMATED)2020-12-14 02:37:00 Test Item Value Reference Range Interpretation Comments POCT GLU (test code = 0874551623) 210 mg/dL 70-110 H Lab Interpretation (test code = Abnormal 28916-3) [facility] GLUCOSE (AUTOMATED)2020-12-13 23:33:00 Test Item Value Reference Range Interpretation Comments POCT GLU (test code = 2986124723) 182 mg/dL 70-110 H Lab Interpretation (test code = Abnormal 59792-7) [facility] GLUCOSE (AUTOMATED)2020-12-13 18:09:00 Test Item Value Reference Range Interpretation Comments POCT GLU (test code = 7623086615) 150 mg/dL 70-110 H Lab Interpretation (test code = Abnormal 15711-4) [facility] METABOLIC PANEL (NA, K, CL, CO2, GLUCOSE, BUN, CREATININE, CA)2020-12-13 16:27:00 Test Item Value Reference Range Interpretation Comments NA (test code = 136 mmol/L 135-145 6453507367) K (test code = 3.7 mmol/L 3.5-5.0 6408838952) CL (test code = 96 mmol/L 98-108 L 9001469451) CO2 TOTAL (test code = 29 mmol/L 23-31 5549767840) AGAP (test code = 2-16 6400366071) BUN (test code = 6 mg/dL 7-23 L 1932459394) GLUCOSE (test code = 212 mg/dL 70-110 H 0464822842) CREATININE (test code = 0.61 mg/dL 0.60-1.25 1074232026) CALCIUM (test code = 9.5 mg/dL 8.6-10.6 8779666579) eGFR Calculation mL/min/1.73m2 (Non-) (test code = 2637370043) eGFR Calculation mL/min/1.73m2 () (test code = 8802270435) JAMES (test code = JAMES) Association of [...] tests). Lab Interpretation Abnormal (test code = 65217-3) [facility] WITH [id number] 16:10:00 Test Item Value Reference Range Interpretation Comments WBC (test code = See_Comment H [Automated 9490-2) message] The sy stem which generated this result transmitted reference range : 4.20 - 10.70 10*3/?L. The reference range was not used to interpret this result as normal/abnormal . RBC (test code = See_Comment H [Automated 199-8) message] The sy stem which generated this [...] RDW-SD (test code = 43.3 fL 38.5-51.6 48479-3) RDW-CV (test code = 16.2 % 12.1-15.4 H 788-0) PLT (test code = See_Comment H [Automated 777-3) message] The sy stem which generated this result transmitted reference range : 150 - 328 10*3/ ?L. The reference r torito was not used to interpret this result as normal/abnormal . MPV (test code = 8.2 fL 9.8-13.0 L 00805-7) NRBC/100 WBC (test See_Comment [Automat ed code = 2067250380) message] The system which generated this result transmitted reference range : 0.0 - 10.0 /100 WBCs. The refer ence range was not u sed to interpret th is result as normal/abnormal . NRBC x10^3 (test code <0.01 See_Comment [Auto mated = 8384750289) message] The s ystem which generated this result transmitted reference range : 10*3/?L. The reference range was not used to interpret this result as normal/abnormal . GRAN MAT (NEUT) % 86.2 % (test code = 770-8) IMM GRAN % (test code 0.70 % = 4372027937) LYMPH % (test code = 10.2 % 736-9) MONO % (test code = 2.5 % 5905-5) EOS % (test code = 0.1 % 713-8) BASO % (test code = 0.3 % 706-2) GRAN MAT x10^3(ANC) 9.61 10*3/uL 1.99-6.95 H (test code = 2557875482) IMM GRAN x10^3 (test 0.08 10*3/uL 0.00-0.06 H code = 8658362679) LYMPH x10^3 (test code 1.14 10*3/uL 1.09-3.23 = 731-0) MONO x10^3 (test code 0.28 10*3/uL 0.36-1.02 L = 742-7) EOS x10^3 (test code = <0.03 0.06-0.53 L 711-2) BASO x10^3 (test code 0.03 10*3/uL 0.01-0.09 = 704-7) Lab Interpretation Abnormal (test code = 32596-1) [facility]2020-12-13 14:16:00 Test Item Value Reference Range Interpretation Comments POCT GLU (test code = 3400004638) 236 mg/dL 70-110 H Lab Interpretation (test code = Abnormal 79635-7) [facility] COVID [id number] 04:58:00COVID DMT InterpretationInterpretation/Recommendations: Molecular NAAT Tests for [...] COVID-19 testing the patient has had at [facility], including molecular NAAT testing (more commonly known as PCR testing and Rapid ID Now testing) and antibody testing. It does not take into account any testing that a patient has had outside of the [facility] medical record. [facility] LABORATORY SERVICESCOVID Resu [id number]-[id number] Rapid ID NOW (no units) ? ? Date ? Value ? 12/11/2020 ? Not Detected ? ? ? 11/16/2020 ? Not Detected ? ? ? 08/21/2020 ?Not Detected ? [facility] 2020-12-13 03:11:00 Test Item Value Reference Range Interpretation Comments POCT GLU (test code = 9892140481) 171 mg/dL 70-110 H Lab Interpretation (test code = Abnormal 77564-0) [facility] GLUCOSE (AUTOMATED)2020-12-13 00:00:00 Test Item Value Reference Range Interpretation Comments POCT GLU (test code = 8048706216) 118 mg/dL 70-110 H Lab Interpretation (test code = Abnormal 50272-6) [facility] GLUCOSE (AUTOMATED)2020-12-12 20:29:00 Test Item Value Reference Range Interpretation Comments POCT GLU (test code = 0162763721) 173 mg/dL 70-110 H Lab Interpretation (test code = Abnormal 60900-5) [facility] ABDOMEN [id number] 19:56:17 1. ?Hepatic steatosis. However, limited evaluation [...] main portal veinwasevaluated with color Doppler imaging. [employer] Farm[employer] images were obtainedfor the record. COMPARISON: Ultrasound [...] normal where visualized. SPLEEN:No images were obtained. [facility], Radiant Results Inft User - 12/12/2020 1:57 PM CSTEXAM: US ABDOMEN LIMITEDHISTORY: 70 years-old male with RUQ ultrasound to assess for common bileduct dilation .TECHNIQUE: Limited abdominal ultrasound focused on the liver, biliarysystem, pancreas, and spleen was performed. The main portal vein wasevaluated with color Doppler imaging. [employer] images were obtainedfor the record.COMPARISON: Ultrasound abdomen [...] this study and agree with the abovereport. [facility]2020-12-12 19:24:00 Test Item Value Reference Range Interpretation Comments POCT GLU (test code = 7013088978) 230 mg/dL 70-110 H Lab Interpretation (test code = Abnormal 39367-0) [facility] CHEST 1 [id number] 15:16:46 Low lung volumes with mild perihilar [...] have reviewed thisstudy and agree with theabove report.[facility]2020-12-12 14:34:00 Test Item Value Reference Range Interpretation Comments POCT GLU (test code = 5375143898) 225 mg/dL 70-110 H Lab Interpretation (test code = Abnormal 42780-8) [facility] BrookURINE [id number] 13:28:00 Test Item Value Reference Range Interpretation Comments URINE CULTURE (test < 10,000 CFU/mL mixed code = 630-4) aerobic organisms - suggests endogenous microbial contamination [facility] (NA, K, CL, CO2, GLUCOSE, BUN, CREATININE, CA)2020-12-12 10:05:00 Test Item Value Reference Range Interpretation Comments NA (test code = 136 mmol/L 135-145 3207399789) K (test code = 3.5 mmol/L 3.5-5.0 3637387257) CL (test code = 100 mmol/L 98-108 8797104360) CO2 TOTAL (test code = 31 mmol/L 23-31 4966784424) AGAP (test code = 2-16 2436050363) BUN (test code = 7 mg/dL 7-23 7807440983) GLUCOSE (test code = 259 mg/dL 70-110 H 6668016967) CREATININE (test code = 0.63 mg/dL 0.60-1.25 5978064904) CALCIUM (test code = 8.5 mg/dL 8.6-10.6 L 2061419800) eGFR Calculation mL/min/1.73m2 (Non-) (test code = 6995747107) eGFR Calculation mL/min/1.73m2 () (test code = 2051340617) JAMES (test code = JAMES) Association of [...] tests). Lab Interpretation Abnormal (test code = 36961-1) [facility] BrookMagnesium [id number] 10:05:00 Test Item Value Reference Range Interpretation Comments MAGNESIUM (test code = 0058710931) 1.9 mg/dL 1.7-2.4 Lab Interpretation (test code = Normal 77998-0) [facility] with [id number] 09:48:00 Test Item Value Reference Range Interpretation Comments WBC (test code = See_Comment [Automated 1187-2) message] The sy stem which generated this result transmitted reference range : 4.20 - 10.70 10*3/?L. The reference range was not used to interpret this result as normal/abnormal . RBC (test code = See_Comment [Automated 555-8) message] The sy stem which generated this [...] RDW-SD (test code = 46.0 fL 38.5-51.6 78405-4) RDW-CV (test code = 16.1 % 12.1-15.4 H 788-0) PLT (test code = See_Comment H [Automated 777-3) message] The sy stem which generated this result transmitted reference range : 150 - 328 10*3/ ?L. The reference r torito was not used to interpret this result as normal/abnormal . MPV (test code = 8.6 fL 9.8-13.0 L 30441-1) NRBC/100 WBC (test See_Comment [Automat ed code = 1287348793) message] The system which generated this result transmitted reference range : 0.0 - 10.0 /100 WBCs. The refer ence range was not u sed to interpret th is result as normal/abnormal . NRBC x10^3 (test code <0.01 See_Comment [Auto mated = 5226017181) message] The s ystem which generated this result transmitted reference range : 10*3/?L. The reference range was not used to interpret this result as normal/abnormal . GRAN MAT (NEUT) % 70.2 % (test code = 770-8) IMM GRAN % (test code 0.30 % = 0198494339) LYMPH % (test code = 18.8 % 736-9) MONO % (test code = 5.0 % 5905-5) EOS % (test code = 5.2 % 713-8) BASO % (test code = 0.5 % 706-2) GRAN MAT x10^3(ANC) 6.05 10*3/uL 1.99-6.95 (test code = 6174921117) IMM GRAN x10^3 (test 0.03 10*3/uL 0.00-0.06 code = 6184321920) LYMPH x10^3 (test code 1.62 10*3/uL 1.09-3.23 = 731-0) MONO x10^3 (test code 0.43 10*3/uL 0.36-1.02 = 742-7) EOS x10^3 (test code = 0.45 10*3/uL 0.06-0.53 711-2) BASO x10^3 (test code 0.04 10*3/uL 0.01-0.09 = 704-7) Lab Interpretation Abnormal (test code = 06947-1) [facility] GLUCOSE (AUTOMATED)2020-12-12 03:42:00 Test Item Value Reference Range Interpretation Comments POCT GLU (test code = 196 mg/dL 70-110 H Notifi ed Provider 9258240274) Lab Interpretation (test Abnormal code = 06707-4) [facility] Brook[facility]OLATE2021-03-02 02:24:00 Test Item Value Reference Range Interpretation Comments FOLATE SER (test code = 6601358952) 5.8 ng/mL 3.0-20.0 Lab Interpretation (test code = Normal 28161-6) [facility] BrookVITAMIN B12, [id number] 00:55:00 Test Item Value Reference Range Interpretation Comments VIT B12 (test code = 844 pg/mL 240-930 5532797339) JAMES (test code = JAMES) Biotin has been reported to cause a positive bias, interpret results relative to patient's use of biotin. Lab Interpretation (test Normal code = 50736-9) [facility] GLUCOSE (AUTOMATED)2020-12-12 00:14:00 Test Item Value Reference Range Interpretation Comments POCT GLU (test code = 1196973597) 164 mg/dL 70-110 H Lab Interpretation (test code = Abnormal 92311-5) [facility] BrookCREATINE [id number] 23:42:00 Test Item Value Reference Range Interpretation Comments CK (test code = 8595884879) <20 33-194 L Lab Interpretation (test code = Abnormal 40619-7) [facility] BrookTHYROID STIMULATING [id number] 23:17:00 Test Item Value Reference Range Interpretation Comments TSH (test code = See_Comment Biotin has been 1344587537) reported to cau se a negative bias, interpret resul ts relative to pat ient's use of biotin. [Automated mess age] The system whic h generated this result transmitted ref erence range: 0.45 - 4 .70 mIU/L. The refe rence range was not u sed to interpret this result as normal/abnor mal. Lab Interpretation (test Normal code = 95415-2) [facility] BrookXR HIPS 3 VW [id number] 21:41:53No appreciable fracture lines. RL: 6200 ICAL [...] No osseous erosions.IMPRESSIONNo appreciable fracture lines.RL: 6[facility]PROCALCITONIN2021-[facility]-01 20:00:00 Test Item Value Reference Range Interpretation Comments Procalcitonin (test 0.13 ng/mL <0.07 H code = 1424710834) JAMES (test code = JAMES) INTERPRETATION OF [...] lung abscess/empyema. For further information please refer to:[email or web address] Lab Interpretation Abnormal (test code = 68585-2) [facility]AUT[facility]2020-12-11 19:07:00 Test Item Value Reference Range Interpretation Comments POCT GLU (test code = 4092192671) 274 mg/dL 70-110 H Lab Interpretation (test code = Abnormal 15448-8) [facility] BrookMAGNESIUM2021-03-01 18:31:00 Test Item Value Reference Range Interpretation Comments MAGNESIUM (test code = 9035197735) 1.9 mg/dL 1.7-2.4 Lab Interpretation (test code = Normal 54184-2) [facility] BrookFERRITIN [id number] 18:31:00 Test Item Value Reference Range Interpretation Comments FERRITIN (test code = 178.0 ng/mL 18.0-464.0 6929547292) JAMES (test code = JAMES) Biotin has been reported to cause a negative bias, interpret results relative to patient's use of biotin. Lab Interpretation (test Normal code = 30090-5) [facility] BrookCT HEAD WO [id number] 14:36:47 No acute intracranial abnormality. Dilated ventricles [...] reviewed this study and agree with the abovereport.[facility] BrookURINALYSIS2021-03-01 14:28:00 Test Item Value Reference Range Interpretation Comments APPEARANCE (test code = Clear Clear 8970283185) COLOR (test code = Yellow Yellow 3197879181) PH (test code = 4.8-8.0 8182196527) SP GRAVITY (test code = 1.003-1.030 5687470021) GLU U QUAL (test code = 500 mg/dL Normal A 0784750557) BLOOD (test code = Negative Negative 8263863200) KETONES (test code = 5 mg/dL Negative A 3220479794) PROTEIN (test code = Negative Negative 2887-8) UROBILIN (test code = Normal Normal 1780183827) BILIRUBIN (test code = Negative Negative 9132454357) NITRITE (test code = Negative Negative 9539280233) LEUK RYAN (test code = Negative Negative 3303803305) RBC/HPF (test code = See_Comment [Autom ated message] 8276592058) The system [employer] generated this result transmit ronan reference range : 0 - 3 HPF. The refe rence range was not u sed to interpret th is result as normal/abnormal . WBC/HPF (test code = See_Comment [Autom ated message] 7347038844) The system [employer] generated this result transmit ronan reference range : 0 - 5 HPF. The refe rence range was not u sed to interpret th is result as normal/abnormal . BACTERIA (test code = Negative Negative 7635282702) MUCOUS (test code = Slight Negative LPF A 9842298048) SQ EPITH (test code = HPF 6206259120) Lab Interpretation (test Abnormal code = 81392-8) [facility] [facility] (ID NOW RAPID TESTING)2020-12-11 13:10:00 Test Item Value Reference Range Interpretation Comments SARS-CoV-2 Rapid ID NOW Not Detected Not Detected (test code = 32880-7) JAMES (test code = JAMES) ID NOW COVID-19 Assay is an isothermal nucleic acid amplification test intended for the qualitative detection of nucleic acid from SARS-CoV-2 viral RNA in nasopharyngeal (SIEBEL CRM DEVELOPER) specimens. It is used under Emergency Use [...] indicated. Lab Interpretation Normal (test code = 66045-4) [facility] METABOLIC PANEL (17441)2020-12-11 12:29:00 Test Item Value Reference Range Interpretation Comments NA (test code = 136 mmol/L 135-145 9107692463) K (test code = 3.5 mmol/L 3.5-5.0 0441613191) CL (test code = 95 mmol/L 98-108 L 2675503471) CO2 TOTAL (test code = 35 mmol/L 23-31 H 9979112144) AGAP (test code = 2-16 5579920618) BUN (test code = 9 mg/dL 7-23 8730906233) GLUCOSE (test code = 329 mg/dL 70-110 H 0267748521) CREATININE (test code = 0.72 mg/dL 0.60-1.25 9024400909) TOTAL BILI (test code = 0.6 mg/dL 0.1-1.4 5145915651) CALCIUM (test code = 9.0 mg/dL 8.6-10.6 1921961507) T PROTEIN (test code = 6.8 g/dL 6.3-8.2 2299206833) ALBUMIN (test code = 3.8 g/dL 3.5-5.0 1821270646) ALK PHOS (test code = 288 U/L 34-122 H 8927788336) ALTv (test code = 46 U/L 5-50 1741-6) AST(SGOT) (test code = 38 U/L 13-40 9495408438) eGFR Calculation mL/min/1.73m2 (Non-) (test code = 6262907871) eGFR Calculation mL/min/1.73m2 () (test code = 9901567421) JAMES (test code = JAMES) Association of [...] tests). Lab Interpretation Abnormal (test code = 59588-8) [facility] BrookLactic Acid Whole [id number] 12:23:00 Test Item Value Reference Range Interpretation Comments LACTIC ACID (test code = 2.09 mmol/L 0.50-2.20 3173330359) Lab Interpretation (test code = Normal 50094-4) [facility] BrookCB WITH [id number] 12:17:00 Test Item Value Reference Range Interpretation [...] RDW-SD (test code = 44.9 fL 38.5-51.6 71773-2) RDW-CV (test code = 15.9 % 12.1-15.4 H 788-0) PLT (test code = See_Comment H [Automated 777-3) message] The sy stem which generated this result transmitted reference range : 150 - 328 10*3/ ?L. The reference r torito was not used to interpret this result as normal/abnormal . MPV (test code = 8.3 fL 9.8-13.0 L 12335-2) NRBC/100 WBC (test See_Comment [Automat ed code = 7191329502) message] The system which generated this result transmitted reference range : 0.0 - 10.0 /100 WBCs. The refer ence range was not u sed to interpret th is result as normal/abnormal . NRBC x10^3 (test code <0.01 See_Comment [Auto mated = 0621162839) message] The s ystem which generated this result transmitted reference range : 10*3/?L. The reference range was not used to interpret this result as normal/abnormal . GRAN MAT (NEUT) % 77.9 % (test code = 770-8) IMM GRAN % (test code 0.50 % = 3159695084) LYMPH % (test code = 12.2 % 736-9) MONO % (test code = 5.2 % 5905-5) EOS % (test code = 3.7 % 713-8) BASO % (test code = 0.5 % 706-2) GRAN MAT x10^3(ANC) 9.57 10*3/uL 1.99-6.95 H (test code = 4904034580) IMM GRAN x10^3 (test 0.06 10*3/uL 0.00-0.06 code = 1751691674) LYMPH x10^3 (test code 1.50 10*3/uL 1.09-3.23 = 731-0) MONO x10^3 (test code 0.64 10*3/uL 0.36-1.02 = 742-7) EOS x10^3 (test code = 0.46 10*3/uL 0.06-0.53 711-2) BASO x10^3 (test code 0.06 10*3/uL 0.01-0.09 = 704-7) Lab Interpretation Abnormal (test code = 27769-5) [facility] ONLY COVID [id number] 18:43:00COVID DMT InterpretationInterpretation/Recommendations: Molecular NAAT Test Results [...] a nasopharyngeal sample, there is approximately a kgw-ik-gpxdc chance that the patient was infected and [...] upon aggregate data pooled from the [facility] medical record including both current and prior COVID-19 related testing results for the following tests offered at our institution:A. Tests for the Identification of SARS-CoV-2 RNA:SARS-CoV-2 PCR assays including Cascade Aptima, Cascade Fusion, Barrett RealTime, and Popset Xpert Xpress. SARS-CoV-2 Rapid ID NOW by the ID NOW assay. ? B. Tests for the Identification of SARS-CoV-2 Antibodies: Chemiluminescent immunoassays including Access SARS-CoV-2 IgM (DXI 600), TradeTools FXS Eoaw-AGUO-MjI-2 IgG (Vitros 5600 and Vitros 3600), and Barrett SARS-CoV-2 IgG (WALLPAPER PRINTER I System). These interpretation comments assume that only the above testing was utilized and that the approved acceptable specimen type(s) were used for a given test. These interpretations are autopopulated into [employer] based on computerized algorithms matching an interpretation code number to the patient's set of test results. While a clinical pathologist evaluates the combinations for clinical accuracy, clinical correlation is recommended as it may not take into account very remote prior testing. Furthermore, it does not consider testing a patient may have had outside of the [facility] system. Additionally, it should be noted that the computerized algorithm treats the results for PCR testing and Rapid ID NOW testing (also PCR) synonymously, and thus, refers to both testing methodologies as PCR tests. Given that the sensitivity of [facility]'s Rapid ID NOW testingplatform [...] panel may be beneficial in this setting. [facility] LABORATORY SERVICESCOVID LdvdmbiUQFI-GdH-2 Rapid ID NOW (no units) ? ? Date ? Value ? 08/21/2020 ? Not Detected ? [facility]Un[facility]2020-08-23 18:25:00 Test Item Value Reference Range Interpretation Comments POCT GLU (test code = 2657449288) 297 mg/dL 70-110 H Lab Interpretation (test code = Abnormal 23956-7) [facility] GLUCOSE (AUTOMATED)2020-08-23 14:25:00 Test Item Value Reference Range Interpretation Comments POCT GLU (test code = 3452941354) 181 mg/dL 70-110 H Lab Interpretation (test code = Abnormal 39122-4) [facility] BrookBasi Metabolic Panel (NA, K, CL, CO2, GLUCOSE, BUN, CREATININE, CA)2020-08-23 11:45:00 Test Item Value Reference Range Interpretation Comments NA (test code = 132 mmol/L 135-145 L 0230480712) K (test code = 4.0 mmol/L 3.5-5 3114340470) CL (test code = 96 mmol/L 98-108 L 4412910231) CO2 TOTAL (test code = 33 mmol/L 23-31 H 1321354114) AGAP (test code = 2-16 7979177448) BUN (test code = 9 mg/dL 7-23 6874451766) GLUCOSE (test code = 176 mg/dL 70-110 H 3659396130) CREATININE (test code = 0.66 mg/dL 0.6-1.25 3263369435) CALCIUM (test code = 8.5 mg/dL 8.6-10.6 L 3446907011) eGFR Calculation mL/min/1.73m2 (Non-) (test code = 1289158319) eGFR Calculation mL/min/1.73m2 () (test code = 5644569357) JAMES (test code = JAMES) Association of [...] tests). Lab Interpretation Abnormal (test code = 60742-7) [facility] BrookMagnesium [id number] 11:45:00 Test Item Value Reference Range Interpretation Comments MAGNESIUM (test code = 6241241355) 2.0 mg/dL 1.7-2.4 Lab Interpretation (test code = Normal 00265-3) [facility] with Ggmwypujcoam1375-19-48 11:38:00 Test Item Value Reference Range Interpretation [...] RDW-SD (test code = 41.8 fL 38.5-51.6 04970-2) RDW-CV (test code = 14.3 % 12.1-15.4 788-0) PLT (test code = See_Comment H [Automated 777-3) message] The sy stem which generated this result transmitted reference range : 150 - 328 10*3/ ?L. The reference r torito was not used to interpret this result as normal/abnormal . MPV (test code = 8.0 fL 9.8-13 L 75433-2) NRBC/100 WBC (test See_Comment [Automat ed code = 9204788711) message] The system which generated this result transmitted reference range : 0.0 - 10.0 /100 WBCs. The refer ence range was not u sed to interpret th is result as normal/abnormal . NRBC x10^3 (test code <0.01 See_Comment [Auto mated = 7009879747) message] The s ystem which generated this result transmitted reference range : 10*3/?L. The reference range was not used to interpret this result as normal/abnormal . GRAN MAT (NEUT) % 61.5 % (test code = 770-8) IMM GRAN % (test code 2.00 % = 1406533662) LYMPH % (test code = 25.5 % 736-9) MONO % (test code = 6.3 % 5905-5) EOS % (test code = 3.7 % 713-8) BASO % (test code = 1.0 % 706-2) GRAN MAT x10^3(ANC) 5.29 10*3/uL 1.99-6.95 (test code = 7402544252) IMM GRAN x10^3 (test 0.17 10*3/uL 0-0.06 H code = 2029391013) LYMPH x10^3 (test code 2.19 10*3/uL 1.09-3.23 = 731-0) MONO x10^3 (test code 0.54 10*3/uL 0.36-1.02 = 742-7) EOS x10^3 (test code = 0.32 10*3/uL 0.06-0.53 711-2) BASO x10^3 (test code 0.09 10*3/uL 0.01-0.09 = 704-7) Lab Interpretation Abnormal (test code = 10581-7) [facility] GLUCOSE (AUTOMATED)2020-08-23 10:22:00 Test Item Value Reference Range Interpretation Comments POCT GLU (test code = 5261222833) 164 mg/dL 70-110 H Lab Interpretation (test code = Abnormal 91454-3) [facility] GLUCOSE (AUTOMATED)2020-08-23 05:56:00 Test Item Value Reference Range Interpretation Comments POCT GLU (test code = 6847763495) 242 mg/dL 70-110 H Lab Interpretation (test code = Abnormal 16972-6) [facility] GLUCOSE (AUTOMATED)2020-08-23 03:02:00 Test Item Value Reference Range Interpretation Comments POCT GLU (test code = 0190389573) 210 mg/dL 70-110 H Lab Interpretation (test code = Abnormal 11786-2) [facility] GLUCOSE (AUTOMATED)2020-08-22 23:40:00 Test Item Value Reference Range Interpretation Comments POCT GLU (test code = 4686008754) 267 mg/dL 70-110 H Lab Interpretation (test code = Abnormal 87289-8) [facility] GLUCOSE (AUTOMATED)2020-08-22 19:08:00 Test Item Value Reference Range Interpretation Comments POCT GLU (test code = 0910754787) 191 mg/dL 70-110 H Lab Interpretation (test code = Abnormal 88410-0) [facility] GLUCOSE (AUTOMATED)2020-08-22 13:50:00 Test Item Value Reference Range Interpretation Comments POCT GLU (test code = 1907266995) 174 mg/dL 70-110 H Lab Interpretation (test code = Abnormal 05557-5) [facility] BrookURINE [id number] 12:59:00 Test Item Value Reference Range Interpretation Comments URINE CULTURE (test No aerobic growth (< code = 630-4) 1000 CFU/mL) [facility] with Kznsdejlpuuv0139-13-13 11:28:00 Test Item Value Reference Range Interpretation [...] RDW-SD (test code = 42.5 fL 38.5-51.6 94736-4) RDW-CV (test code = 14.5 % 12.1-15.4 788-0) PLT (test code = See_Comment H [Automated 777-3) message] The sy stem which generated this result transmitted reference range : 150 - 328 10*3/ ?L. The reference r torito was not used to interpret this result as normal/abnormal . MPV (test code = 8.0 fL 9.8-13 L 89597-0) NRBC/100 WBC (test See_Comment [Automat ed code = 2814335663) message] The system which generated this result transmitted reference range : 0.0 - 10.0 /100 WBCs. The refer ence range was not u sed to interpret th is result as normal/abnormal . NRBC x10^3 (test code <0.01 See_Comment [Auto mated = 1205013857) message] The s ystem which generated this result transmitted reference range : 10*3/?L. The reference range was not used to interpret this result as normal/abnormal . GRAN MAT (NEUT) % 69.1 % (test code = 770-8) IMM GRAN % (test code 2.20 % = 5222196513) LYMPH % (test code = 20.9 % 736-9) MONO % (test code = 5.8 % 5905-5) EOS % (test code = 1.0 % 713-8) BASO % (test code = 1.0 % 706-2) GRAN MAT x10^3(ANC) 6.51 10*3/uL 1.99-6.95 (test code = 2855692879) IMM GRAN x10^3 (test 0.21 10*3/uL 0-0.06 H code = 7018773761) LYMPH x10^3 (test code 1.97 10*3/uL 1.09-3.23 = 731-0) MONO x10^3 (test code 0.55 10*3/uL 0.36-1.02 = 742-7) EOS x10^3 (test code = 0.09 10*3/uL 0.06-0.53 711-2) BASO x10^3 (test code 0.09 10*3/uL 0.01-0.09 = 704-7) BASO STIPPLING (test Present A code = 703-9) BANDS (test code = Increased A 4736810492) TOXIC CHANGES (test Present A code = 803-7) Lab Interpretation Abnormal (test code = 17707-1) [facility] Metabolic Panel (NA, K, CL, CO2, GLUCOSE, BUN, CREATININE, CA)2020-08-22 11:12:00 Test Item Value Reference Range Interpretation Comments NA (test code = 135 mmol/L 135-145 1558248090) K (test code = 3.6 mmol/L 3.5-5 3885594056) CL (test code = 99 mmol/L 98-108 8910992953) CO2 TOTAL (test code = 31 mmol/L 23-31 7263321473) AGAP (test code = 2-16 3946826528) BUN (test code = 9 mg/dL 7-23 0646627430) GLUCOSE (test code = 198 mg/dL 70-110 H 9633237020) CREATININE (test code = 0.72 mg/dL 0.6-1.25 2143777424) CALCIUM (test code = 8.3 mg/dL 8.6-10.6 L 3222383023) eGFR Calculation mL/min/1.73m2 (Non-) (test code = 3993259626) eGFR Calculation mL/min/1.73m2 () (test code = 9042124127) JAMES (test code = JAMES) Association of [...] tests). Lab Interpretation Abnormal (test code = 59538-6) [facility] BrookMagnesium Rmdks3243-36-15 11:12:00 Test Item Value Reference Range Interpretation Comments MAGNESIUM (test code = 8546087531) 2.0 mg/dL 1.7-2.4 Lab Interpretation (test code = Normal 19422-8) [facility] BrookLipid Panel (Total Cholesterol, Triglycerides, HDL) - [id number] 11:12:00 Test Item Value Reference Range Interpretation Comments CHOL (test code = 155 mg/dL 120-200 0141885251) HDL (test code = 42 mg/dL >40 2122144785) HDLC RATIO (test code = See_Comment [Au tomated message] 5188475280) The system [employer] generated this result transmit ronan reference range : <=5.0. The refe rence range was not u sed to interpret th is result as normal/abnormal . TRIG (test code = 186 mg/dL 30-170 H 1567650221) LDL CHOL (test code = 76 mg/dL See_Comment [Auto mated message] 90652-2) The system [employer] generated this result transmit ronan reference range : <=160. The refe rence range was not u sed to interpret th is result as normal/abnormal . VLDL (test code = 37 mg/dL 5-60 8288223308) Lab Interpretation (test Abnormal code = 94205-6) [facility] BrookHEPATIC FUNCTION PANEL (33504) (ALB,T.PRO,BILI T,BU/BC,ALT,AST,ALK PHOS)2020-08-22 11:12:00 Test Item Value Reference Range Interpretation Comments TOTAL BILI (test code = 5636068885) 0.6 mg/dL 0.1-1.1 BILI UNCON (test code = 0297083195) 0.2 mg/dL 0.1-1.1 BILI CONJ (test code = 4393543037) 0.0 mg/dL 0-0.3 T PROTEIN (test code = 7951607319) 6.0 g/dL 6.3-8.2 L ALBUMIN (test code = 7649575177) 2.8 g/dL 3.5-5 L ALK PHOS (test code = 1566262837) 222 U/L 34-122 H ALTv (test code = 1742-6) 27 U/L 5-50 AST(SGOT) (test code = 0669326727) 30 U/L 13-40 Lab Interpretation (test code = Abnormal 21882-3) [facility] GLUCOSE (AUTOMATED)2020-08-22 10:11:00 Test Item Value Reference Range Interpretation Comments POCT GLU (test code = 8433089659) 196 mg/dL 70-110 H Lab Interpretation (test code = Abnormal 08517-6) [facility] GLUCOSE (AUTOMATED)2020-08-22 07:15:00 Test Item Value Reference Range Interpretation Comments POCT GLU (test code = 0240635501) 183 mg/dL 70-110 H Lab Interpretation (test code = Abnormal 30134-6) [facility] GLUCOSE (AUTOMATED)2020-08-22 02:30:00 Test Item Value Reference Range Interpretation Comments POCT GLU (test code = 6228807104) 295 mg/dL 70-110 H Lab Interpretation (test code = Abnormal 88943-3) [facility] GLUCOSE (AUTOMATED)2020-08-21 23:46:00 Test Item Value Reference Range Interpretation Comments POCT GLU (test code = 5836874873) 258 mg/dL 70-110 H Lab Interpretation (test code = Abnormal 72690-3) [facility] BrookC-REACTIVE [id number] 18:50:00 Test Item Value Reference Range Interpretation Comments CRP (test code = 8394509631) 15.5 mg/dL <0.8 H Lab Interpretation (test code = Abnormal 75855-4) [facility] BrookPOCT GLUCOSE (AUTOMATED)2020-08-21 18:21:00 Test Item Value Reference Range Interpretation Comments POCT GLU (test code = 6426286373) 297 mg/dL 70-110 H Lab Interpretation (test code = Abnormal 97316-2) [facility] BrookETHANOL2020-11-09 16:24:00 Test Item Value Reference Range Interpretation Comments ALCOHOL (test code = <10 mg/dL 5552282125) JAMES (test code = Toxic Greater than or JAMES) equal to 80 mg/dL. NOTE: Whole blood values are approximately 10% to 15% lower than serum and plasma. [facility] BrookGALV/CLC ONLY - URINE DRUG (IMMUNOASSAY) - 4 ER [id number] 15:36:00 Test Item Value Reference Range Interpretation Comments AMPHET (test code = Negative Negative 7524214998) Cocaine Metabolite (test Negative Negative code = 0940524072) OPIATES (test code = Presumptive Positive Negative A 5954732206) THC (test code = Negative Negative 3518189236) JAMES (test code = JAMES) Urine Drug Cutoff Ranges Amphetamine: ? 1,000 ng/mLCocaine: ? 150 ng/mLOpiates: ? 300 ng/mLCannabinoids: ?50 ng/mL The results are to be used only for medical (i.e., treatment) purposes. Unconfirmed screening results must not be used for non-medical purposes (e.g., employment testing, legal testing). Lab Interpretation (test Abnormal code = 23663-5) [facility] SYPHILIS [id number] 15:04:00 Test Item Value Reference Range Interpretation Comments Syphilis IgG/IgM (test Non-reactive Non-reactive code = 39965-0) JAMES (test code = JAMES) Non-reactive - No serologic evidence of T. pallidum infection. Cannot exclude incubating or early syphilis. Submit a second specimen in 2-4 weeks if syphilis is clinically suspected. Equivocal - Further testing to follow. Reactive - Further testing to follow. Lab Interpretation (test Normal code = 51358-7) [facility] BrookUrinalysis2020-11-09 14:52:00 Test Item Value Reference Range Interpretation Comments APPEARANCE (test code = Clear Clear 7875575372) COLOR (test code = Yellow Yellow 8027020853) PH (test code = 4.8-8.0 3531667547) SP GRAVITY (test code = 1.003-1.030 8846619018) GLU U QUAL (test code = 500 mg/dL Normal A 0383325377) BLOOD (test code = Negative Negative 5586542644) KETONES (test code = 20 mg/dL Negative A 0109336104) PROTEIN (test code = Negative Negative 2887-8) UROBILIN (test code = Normal Normal 1088249969) BILIRUBIN (test code = Negative Negative 8744901394) NITRITE (test code = Negative Negative 8214026709) LEUK RYAN (test code = Negative Negative 3050566618) RBC/HPF (test code = <1 See_Comment [Autom ated message] 4433470629) The system [employer] generated this result transmit ronan reference range : 0 - 3 HPF. The refe rence range was not u sed to interpret th is result as normal/abnormal . WBC/HPF (test code = See_Comment [Autom ated message] 1561441856) The system [employer] generated this result transmit ronan reference range : 0 - 5 HPF. The refe rence range was not u sed to interpret th is result as normal/abnormal . BACTERIA (test code = Negative Negative 7829416468) MUCOUS (test code = Slight Negative LPF A 3661216164) Lab Interpretation (test Abnormal code = 97495-0) [facility] BrookACTIVATED PARTIAL THRMPLAS [id number] 13:45:00 Test Item Value Reference Range Interpretation Comments APTT Patient (test code = See_Comment [ Automated message] 3173-2) The system [employer] generated this result transmitted ref erence range: 26 - 36 Seconds. The re ference range was not u sed to interpret this result as normal/abnor mal. Lab Interpretation (test Normal code = 43283-6) [facility] BrookPOCT GLUCOSE (AUTOMATED)2020-08-21 13:45:00 Test Item Value Reference Range Interpretation Comments POCT GLU (test code = 3701888470) 246 mg/dL 70-110 H Lab Interpretation (test code = Abnormal 61993-5) [facility] BrookHIV 1/2 AG-AB WITH [id number] 12:32:00 Test Item Value Reference Range Interpretation Comments HIV Negative Negative Semi-quantitative (test code = 67045-2) JAMES (test code = Non-reactive for HIV-1 JAMES) antigen and HIV-1/HIV-2 antibodies. ?No laboratory evidence of HIV infection. ?Repeat in 2-4 weeks if acute HIV infection is suspected. [facility] WITH [id number] 12:18:00 Test Item Value Reference Range Interpretation Comments WBC (test code = See_Comment [Automated 4890-2) message] The sy stem which generated this [...] RDW-SD (test code = 44.4 fL 38.5-51.6 51912-7) RDW-CV (test code = 14.5 % 12.1-15.4 788-0) PLT (test code = See_Comment H [Automated 777-3) message] The sy stem which generated this result transmitted reference range : 150 - 328 10*3/ ?L. The reference r torito was not used to interpret this result as normal/abnormal . MPV (test code = 8.5 fL 9.8-13 L 11525-1) NRBC/100 WBC (test See_Comment [Automat ed code = 9681495674) message] The system which generated this result transmitted reference range : 0.0 - 10.0 /100 WBCs. The refer ence range was not u sed to interpret th is result as normal/abnormal . NRBC x10^3 (test code <0.01 See_Comment [Auto mated = 3786102276) message] The s ystem which generated this result transmitted reference range : 10*3/?L. The reference range was not used to interpret this result as normal/abnormal . GRAN MAT (NEUT) % 90.4 % (test code = 770-8) IMM GRAN % (test code 1.30 % = 1417738831) LYMPH % (test code = 7.1 % 736-9) MONO % (test code = 0.5 % 5905-5) EOS % (test code = 0.1 % 713-8) BASO % (test code = 0.6 % 706-2) GRAN MAT x10^3(ANC) 7.74 10*3/uL 1.99-6.95 H (test code = 8909103443) IMM GRAN x10^3 (test 0.11 10*3/uL 0-0.06 H code = 6931141452) LYMPH x10^3 (test code 0.61 10*3/uL 1.09-3.23 L = 731-0) MONO x10^3 (test code 0.04 10*3/uL 0.36-1.02 L = 742-7) EOS x10^3 (test code = <0.03 0.06-0.53 L 711-2) BASO x10^3 (test code 0.05 10*3/uL 0.01-0.09 = 704-7) POLYCHROMASIA (test 2+ See_Comment [Automa ronan code = 91759-8) message] The system which generated this result transmitted reference range : 2+. The referen ce range was not u sed to interpret th is result as normal/abnormal . BANDS (test code = Increased A 3794121319) Lab Interpretation Abnormal (test code = 42910-1) [facility] BrookPROCALCITONIN2020-11-09 11:48:00 Test Item Value Reference Range Interpretation Comments Procalcitonin (test 0.36 ng/mL <0.07 H code = 2481972653) JAMES (test code = JAMES) INTERPRETATION OF [...] lung abscess/empyema. For further information please refer to:[email or web address] Lab Interpretation Abnormal (test code = 16707-4) [facility] BrookLAMAATE [id number] 10:53:00 Test Item Value Reference Range Interpretation Comments LDH (test code = 8735132601) 351 U/L 300-600 Lab Interpretation (test code = Normal 85612-5) [facility] BrookSEDIMENTATION [id number] 10:07:00 Test Item Value Reference Range Interpretation Comments ESR (test code = See_Comment H [Automated message] 0111925606) The system [employer] generated this result transmitted ref erence range: 0 - 10 m m/HR. The reference r torito was not used to interpret this result as normal/abnor mal. Lab Interpretation (test Abnormal code = 63808-0) [facility] BrookPOMA GLUCOSE (AUTOMATED)2020-08-21 09:45:00 Test Item Value Reference Range Interpretation Comments POCT GLU (test code = 7185152526) 287 mg/dL 70-110 H Lab Interpretation (test code = Abnormal 29806-9) [facility] BrookGlycosylated Hemoglobin (A1C)2020-08-21 09:29:00 Test Item Value Reference Range Interpretation Comments HGB A1C (test code = 4548-4) 9.8 % 4-6 H Lab Interpretation (test code = Abnormal 26780-3) [facility] BrookCOVID-19 (ID NOW RAPID TESTING)2020-08-21 09:13:00 Test Item Value Reference Range Interpretation Comments SARS-CoV-2 Rapid ID NOW Not Detected Not Detected (test code = 10583-6) JAMES (test code = JAMES) ID NOW COVID-19 Assay is an isothermal nucleic acid amplification test intended for the qualitative detection of nucleic acid from SARS-CoV-2 viral RNA in nasopharyngeal ([employer] DEVELOPER) specimens. It is used under Emergency Use [...] indicated. Lab Interpretation Normal (test code = 33696-4) [facility] BrookProthrombin Time / [id number] 08:59:00 Test Item Value Reference Range Interpretation Comments PROTIME PATIENT (test See_Comment H [Auto mated message] code = 5964-2) The system [employer] generated this result transmitted ref erence range: 10.1 - 1 2.6 Seconds. The reference range was not used to int erpret this result as normal/abnormal . INR (test code = 6301-6) Nor mal INR <1.1; Warfarin Therap eutic range 2.0 to 3. 0 or 2.5 to 3.5, dep ending upon the indica tions. Lab Interpretation (test Abnormal code = 47165-8) [facility] Test Item Value Reference Range Interpretation Comments APTT Patient (test code = See_Comment [ Automated message] 3173-2) The system [employer] generated this result transmitted ref erence range: 26 - 36 Seconds. The re ference range was not u sed to interpret this result as normal/abnor mal. Lab Interpretation (test Normal code = 69840-6) [facility] (NA, K, CL, CO2, GLUCOSE, BUN, CREATININE, CA)2020-08-21 08:52:00 Test Item Value Reference Range Interpretation Comments NA (test code = 136 mmol/L 135-145 9787874209) K (test code = 4.3 mmol/L 3.5-5 8787758020) CL (test code = 104 mmol/L 98-108 4513982106) CO2 TOTAL (test code = 24 mmol/L 23-31 4309054048) AGAP (test code = 2-16 6695980771) BUN (test code = 8 mg/dL 7-23 9610112576) GLUCOSE (test code = 308 mg/dL 70-110 H 6980550789) CREATININE (test code = 0.72 mg/dL 0.6-1.25 2854443494) CALCIUM (test code = 7.8 mg/dL 8.6-10.6 L 9491567461) eGFR Calculation mL/min/1.73m2 (Non-) (test code = 8756234090) eGFR Calculation mL/min/1.73m2 () (test code = 3918050709) JAMES (test code = JAMES) Association of [...] tests). Lab Interpretation Abnormal (test code = 13569-9) [facility] (88948[facility] (ALB,T.PRO,BILI T,BU/BC,ALT,AST,ALK PHOS)2020-08-21 08:52:00 Test Item Value Reference Range Interpretation Comments TOTAL BILI (test code = 5631827598) 0.8 mg/dL 0.1-1.1 BILI UNCON (test code = 6531985720) 0.3 mg/dL 0.1-1.1 BILI CONJ (test code = 5634866954) 0.0 mg/dL 0-0.3 T PROTEIN (test code = 4195931944) 5.7 g/dL 6.3-8.2 L ALBUMIN (test code = 2371329254) 2.7 g/dL 3.5-5 L ALK PHOS (test code = 4699629833) 245 U/L 34-122 H ALTv (test code = 1742-6) 37 U/L 5-50 AST(SGOT) (test code = 4822871760) 43 U/L 13-40 H Lab Interpretation (test code = Abnormal 63896-7) [facility]
--- NOTE | 2022-01-16 23:56 | EDPHYS ---
Physician Documentation [facility] Name: Kiel Ngo Age: 71 yrs Sex: Male : 1950 Arrival Date: 01/16/2022 Time: 22:12 Bed 13 Private MD: LAURIE Physician Stu Banerjee HPI: 01/16 23:50 This 71 yrs old Male presents to ER via EMS with complaints of chronic right chetan hip pain. 23:50 The patient or guardian reports decreased range of motion. sustained from unknown chetan reason, There is no obvious deformity, The patient is not able to ambulate. Patient is not able to bear weight. There is no radiation of the patient's discomfort. The complaints affect the right upper thigh. Onset: The symptoms/episode began/occurred chronic. The patient presents with decreased range of motion, pain, that is acute. The complaints affect the right hip and right quadriceps. Context: The problem was sustained at an unknown site, resulted from an unknown cause, the patient is not able to bear weight, the patient is not able to ambulate, Problem is a result from a previous injury: No. Historical: - Allergies: 22:19 Demerol; ld1 22:19 metformin; ld1 22:19 Morphine; ld1 - PMHx: 22:19 Atrial fibrillation; Chronic right leg pain; neuropathy; chronic back pain; ld1 - PSHx: 22:19 back sx; PANCREAS SX; R. Ankle SX; ld1 - Immunization history:: Adult Immunizations up to date, Client reports having NOT received the Covid vaccine. - Social history:: Smoking status: Patient denies any tobacco usage or history of. Patient/guardian denies using alcohol. - Family history:: not pertinent. ROS: 23:50 Constitutional: Negative for fever, chills, and weight loss, Eyes: Negative for injury, chetan pain, redness, and discharge, ENT: Negative for injury, pain, and discharge, Neck: Negative for injury, pain, and swelling, Cardiovascular: Negative for chest pain, palpitations, and edema, Respiratory: Negative for shortness of breath, cough, wheezing, and pleuritic chest pain, Abdomen/GI: Negative for abdominal pain, nausea, vomiting, diarrhea, and constipation, Back: Negative for injury and pain, : Negative for injury, bleeding, discharge, and swelling, Skin: Negative for injury, rash, and discoloration, Neuro: Negative for headache, weakness, numbness, tingling, and seizure, Psych: Negative for depression, anxiety, suicide ideation, homicidal ideation, and hallucinations, Allergy/Immunology: Negative for hives, rash, and allergies, Endocrine: Negative for neck swelling, polydipsia, polyuria, polyphagia, and marked weight changes, Hematologic/Lymphatic: Negative for swollen nodes, abnormal bleeding, and unusual bruising. 23:50 MS/extremity: Positive for deformity, pain, of the right hip and right upper thigh. Exam: 23:50 Constitutional: This is a well developed, well nourished patient who is awake, alert, chetan and in no acute distress. Head/Face: Normocephalic, atraumatic. Eyes: Pupils equal round and reactive to light, extra-ocular motions intact. Lids and lashes normal. Conjunctiva and sclera are non-icteric and not injected. Cornea within normal limits. Periorbital areas with no swelling, redness, or edema. ENT: Nares patent. No nasal discharge, no septal abnormalities noted. Tympanic membranes are normal and external auditory canals are clear. Oropharynx with no redness, swelling, or masses, exudates, or evidence of obstruction, uvula midline. Mucous membranes moist. Neck: Trachea midline, no thyromegaly or masses palpated, and no cervical lymphadenopathy. Supple, full range of motion without nuchal rigidity, or vertebral point tenderness. No Meningismus. Chest/axilla: Normal chest wall appearance and motion. Nontender with no deformity. No lesions are appreciated. Cardiovascular: Regular rate and rhythm with a normal S1 and S2. No gallops, murmurs, or rubs. Normal PMI, no JVD. No pulse deficits. Respiratory: Lungs have equal breath sounds bilaterally, clear to auscultation and percussion. No rales, rhonchi or wheezes noted. No increased work of breathing, no retractions or nasal flaring. Abdomen/GI: Soft, non-tender, with normal bowel sounds. No distension or tympany. No guarding or rebound. No evidence of tenderness throughout. Back: No spinal tenderness. No costovertebral tenderness. Full range of motion. Male : Normal genitalia with no discharge or lesions. Skin: Warm, dry with normal turgor. Normal color with no rashes, no lesions, and no evidence of cellulitis. Neuro: Awake and alert, GCS 15, oriented to person, place, time, and situation. Cranial nerves II-XII grossly intact. Motor strength 5/5 in all extremities. Sensory grossly intact. Cerebellar exam normal. Normal gait. Psych: Awake, alert, with orientation to person, place and time. Behavior, mood, and affect are within normal limits. 23:50 Musculoskeletal/extremity: ROM: limited active range of motion due to pain, limited passive range of motion due to pain, Circulation is intact in all extremities. Sensation intact. Compartment Syndrome exam of affected extremity: no pain, DVT Exam: no swelling, no tenderness, negative Homans' sign noted on exam, no appreciated bluish discoloration, no erythema, no increased warmth, pain. Vital Signs: 22:17 BP 131 / 78; Pulse 87; Resp 18; Temp 97.9(TE); Pulse Ox 98% on R/A; Weight 85.73 kg; ld1 Height 5 ft. 10 in. (177.80 cm); Pain 9/10; 22:17 Body Mass Index 27.12 (85.73 kg, 177.80 cm) ld1 MDM: 22:31 Patient medically screened. chetan 23:54 Differential diagnosis: bursitis, arthritis. Data reviewed: vital signs, nurses notes. chetan Data interpreted: manager monitoring: rate is 87 beats/min, rhythm is regular, Pulse oximetry: on room air is 98 %. 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 Administered Medications: 01/17 00:10 Drug: Phenergan (promethazine) 25 mg Route: IM; Site: right vastus lateralis; ll3 00:30 Follow up: Response: No adverse reaction ll3 00:11 Drug: HYDROmorphone 3 mg Route: IM; Site: left vastus lateralis; ll3 00:30 Follow up: Response: No adverse reaction ll3 Disposition Summary: 01/16/22 23:56 Discharge Ordered Location: Home chetan Problem: new chetan Symptoms: have improved chetan Condition: Stable chetan Diagnosis - Other chronic pain - right hip chetan Followup: chetan - With: Private Physician - When: 2 - 3 days - Reason: Recheck today's complaints, Continuance of care, Re-evaluation by your physician Followup: chetan - With: Madhu Francois DO - When: Tomorrow - Reason: Recheck today's complaints, Continuance of care, Re-evaluation by your physician Discharge Instructions: - Discharge Summary Sheet chetan - Chronic Pain, Adult chetan Forms: - Medication Reconciliation Form chetan - Thank You Letter chetan - Antibiotic Education chetan - Prescription Opioid Use chetan Signatures: Stu Banerjee MD MD cha Dibbern, Lauren RN RN ld1 Katie Shi RN RN ll3
--- NOTE | 2022-01-16 23:56 | ER ---
Nurse's Notes [facility] Name: Kiel Ngo Age: 71 yrs Sex: Male : 1950 Arrival Date: 01/16/2022 Time: 22:12 Bed 13 Private MD: Diagnosis: Other chronic pain-right hip Presentation: 01/16 22:17 Chief complaint: EMS states: toned out to pt home for pain. Pt c/o pain - states "I was ld1 here this morning, they gave me some shots of Dilaudid and it worked pretty well. I have an appointment tomorrow with my pain management clinic and I get a refill on Dilaudid for home use." Pt requesting Dilaudid. Coronavirus screen: At this time, the client does not indicate any symptoms associated with coronavirus-19. Ebola Screen: No symptoms or risks identified at this time. Initial Sepsis Screen: Does the patient meet any 2 criteria? No. Patient's initial sepsis screen is negative. Does the patient have a suspected source of infection? No. Patient's initial sepsis screen is negative. Risk Assessment: Do you want to hurt yourself or someone else? Patient reports no desire to harm self or others. Onset of symptoms was January 16, 2022. 22:17 Method Of Arrival: EMS: [facility] ld1 22:17 Acuity: JOZEF 4 ld1 Triage Assessment: 22:19 General: Appears in no apparent distress. comfortable, Behavior is calm, cooperative, ld1 appropriate for age. Pain: Complains of pain in back Pain does not radiate. Pain currently is 9 out of 10 on a pain scale. EENT: No signs and/or symptoms were reported regarding the EENT system. Neuro: Level of Consciousness is awake, alert, obeys commands, Oriented to person, place, time, situation. Respiratory: Airway is patent Respiratory effort is even, unlabored. Musculoskeletal: Reports pain in back. Historical: - Allergies: 22:19 Demerol; ld1 22:19 metformin; ld1 22:19 Morphine; ld1 - PMHx: 22:19 Atrial fibrillation; Chronic right leg pain; neuropathy; chronic back pain; ld1 - PSHx: 22:19 back sx; PANCREAS SX; R. Ankle SX; ld1 - Immunization history:: Adult Immunizations up to date, Client reports having NOT received the Covid vaccine. - Social history:: Smoking status: Patient denies any tobacco usage or history of. Patient/guardian denies using alcohol. - Family history:: not pertinent. Screenin/07 00:31 Abuse screen: Denies threats or abuse. Nutritional screening: No deficits noted. ll3 Tuberculosis screening: No symptoms or risk factors identified. Fall Risk No fall in past 12 months (0 pts). No secondary diagnosis (0 pts). No IV (0 pts). Ambulatory Aid- None/Bed Rest/Nurse Assist (0 pts). Gait- Normal/Bed Rest/Wheelchair (0 pts) Mental Status- Oriented to own ability (0 pts). Total Chow Fall Scale indicates No Risk (0-24 pts). Assessment: 01/16 22:20 General: Appears uncomfortable, Behavior is calm, cooperative. Pain: Complains of pain ll3 in right inguinal area Pain currently is 10 out of 10 on a pain scale. Neuro: Level of Consciousness is awake, alert, obeys commands, Oriented to person, place, time, situation. Cardiovascular: Patient's skin is warm and dry. Respiratory: Respiratory effort is even, unlabored, Respiratory pattern is regular, symmetrical. Vital Signs: 22:17 BP 131 / 78; Pulse 87; Resp 18; Temp 97.9(TE); Pulse Ox 98% on R/A; Weight 85.73 kg; ld1 Height 5 ft. 10 in. (177.80 cm); Pain 9/10; 22:17 Body Mass Index 27.12 (85.73 kg, 177.80 cm) ld1 ED Course: 22:12 Patient arrived in ED. mw2 22:19 Triage completed. ld1 22:19 Arm band placed on right wrist. ld1 22:31 Stu Banerjee MD is Attending Physician. chetan 23:55 Madhu Francois DO is Referral Physician. [facility] 01/17 00:31 No provider procedures requiring assistance completed. Patient did not have IV access ll3 during this emergency room visit. 00:32 Patient has correct armband on for positive identification. Bed in low position. Call ll3 light in reach. Side rails up X2. Administered Medications: 00:10 Drug: Phenergan (promethazine) 25 mg Route: IM; Site: right vastus lateralis; ll3 00:30 Follow up: Response: No adverse reaction ll3 00:11 Drug: HYDROmorphone 3 mg Route: IM; Site: left vastus lateralis; ll3 00:30 Follow up: Response: No adverse reaction ll3 Outcome: 01/16 23:56 Discharge ordered by MD. benton 04 00:31 Discharged to home via ambulance. ll3 Condition: stable Discharge instructions given to patient, Instructed on discharge instructions, follow up and referral plans. Demonstrated understanding of instructions, follow-up care. 00:32 Patient left the ED. ll3 Signatures: Stu Banerjee MD MD cha [place], MyKena mw2 Danna Moreno RN RN ld1 Katie Shi RN RN ll3
[2022-01-17] MEDS ORDERED: PROMETHAZINE INJ 25 MG/ML AMP ONE (00:01)
[2022-01-17] MEDS ORDERED: HYDROMORPHONE HCL 2 MG/ML inj ONE (00:01)
[2022-01-17] MEDS ORDERED: HYDROMORPHONE HCL 1 MG/ML INJ ONE (00:01)
[2022-01-17] MEDS ORDERED: LIDOCAINE 1% MPF 2 ML AMPULE ONE (00:02)
[2022-01-17 10:08] VITALS: BP 131/78; TEMP 97.9; O2SAT 98
== END 2022-01-17 00:32 | disposition home or self-care (01) ==
LOC: ER 22:09
DX: G89.29 Other chronic pain (principal); M79.651 Pain in right thigh; G62.9 Polyneuropathy, unspecified; I48.91 Unspecified atrial fibrillation; Z88.5 Allergy status to narcotic agent; Z88.8 Allergy status to other drugs, medicaments and biological substances
CPT/HCPCS: 96372; 99283

== ENCOUNTER 2022-02-17 15:54 | Emergency (ER) | payer OTHER ==
--- OUTSIDE RECORDS SUMMARY | 2022-02-17 16:05 | XMS REPORT | Continuity of Care Document ---
:1950 Author Organization [facility] t Address [address] [place] [address] Dr. Motley [address] [place] [id number] Care Team Providers Name Role Phone DIOGENES [...] Policy Number Effective Date Expiration Date S [facility] MEDICARE PART A [id number] 2007 \\T\\ B 00:00:00 [employer] INDEMNITY [id number] 2016 00:00:00 MEDICARE PART A [id number] 2014 \\T\\ B - MEDICARE 00:00:00 INDEMNITY/TRADITIO [id number] 3532-04-03 NAL CHOICE - [employer] 00:00:00 Problems Condition Condition Condition Status Onset Resolution Last Treating Co mments Source Name Details Category Date Date Treatment Clinician Date Elevated Elevated Disease Active NPI:1 83 LFTs LFTs 11-17 [id number] 00:00: 00 Abnormal Abnormal Disease Active NPI:1 83 CXR CXR 11-17 [id number] 00:00: 00 Elevated Elevated Disease Active NPI:1 83 LFTs LFTs 11-17 [id number] 00:00: 00 Cellulitis Cellulitis Disease Active N PI:183 2- [id number] 00:00: 00 Rash Rash Disease Active 2019-10 NPI:183 10-21 [id number] 00:00: 00 Allergies, Adverse Reactions, Alerts Allergy Allergy Status Severity Reaction(s) Onset Inactive Treating Comm ents Source Name Type Date Date Clinician Mckinley Propensi Active Rash 2019-10 NPI:183 ty to 1-10 [id number] adverse 00:00: reaction 00 s PEACH DRUG Active Rash 2019-10 NPI:183 INGREDI -10 [id number] 00:00: 00 Lidocain Drug Active Itching 2019-10 NPI:183 e Allergy 10-21 [id number] 00:00: 00 LIDOCAIN DRUG Active ITCHING 2019-10 NPI:183 E INGREDI 10-21 [id number] 00:00: 00 Meperidi Propensi Active Anaphylaxis N PI:183 ne ty to 3-16 [id number] adverse 00:00: reaction 00 s Glimepir Propensi Active Hives NPI:18 3 samantha ty to 3-16 [id number] adverse 00:00: reaction 00 s Metformi Propensi Active Itching NPI:1 83 n ty to 3-16 [id number] adverse 00:00: reaction 00 s MEPERIDI DRUG Active Anaphylaxis NPI :183 NE INGREDI 3-16 [id number] 00:00: 00 GLIMEPIR DRUG Active Hives NPI:183 SAMANTHA INGREDI 3-16 [id number] 00:00: 00 METFORMI DRUG Active ITCHING NPI:183 N INGREDI -16 [id number] 00:00: 00 Social History Social Habit Start Date Stop Date Quantity Comments Source Exposure to Not sure NPI:[id number] 1 SARS-CoV-2 (event) History of tobacco Chews Tobacco NPI :[id number] use History [facility] 2020-11-17 2020-11-17 5 NPI:[id number] Financial 00:00:00 00:00:00 History [facility] Food 2020-11-17 2020-11-17 1 NPI:639 [id number] Worry 00:00:00 00:00:00 History [facility] Food 2020-11-17 2020-11-17 1 NPI:881 [id number] Scarcity 00:00:00 00:00:00 History [facility] 2020-11-17 2020-11-17 1 NPI:[id number] Transport Med 00:00:00 00:00:00 History [facility] 2020-11-17 2020-11-17 1 NPI:[id number] 81 Transport Non-Med 00:00:00 00:00:00 Education 2020-11-16 2020-11-16 21 00:00:00 00:00:00 Alcohol intake 2020-11-16 2020-11-16 Ex-drinker NPI:[id number] 00:00:00 00:00:00 (finding) Tobacco use and 2020-08-21 2020-08-21 Former user NPI:1831 [id number] exposure 00:00:00 00:00:00 Tobacco Comment 2020-08-21 2020-08-21 quit 10 years NPI:18 [id number] 00:00:00 00:00:00 ago, started in 2nd year of college (~40 years) Alcohol Comment 2020-08-21 2020-08-21 Used to have 2-3 NPI :[id number] 00:00:00 00:00:00 six-packs of beer daily x 20 years, quit 2005 History [facility] 2020-08-21 2020-08-21 99 NPI:[id number] 81 Alcohol Frequency 00:00:00 00:00:00 History [facility] 2020-08-21 2020-08-21 99 NPI:[id number] 81 Alcohol Std Drinks 00:00:00 00:00:00 History [facility] 2020-08-21 2020-08-21 99 NPI:[id number] 81 Alcohol Binge 00:00:00 00:00:00 [birth year] NPI:[id number] 00:00:00 00:00:00 Smoking Status Start Date Stop Date Source Never smoker Medications Ordered Filled Start Stop Current Ordering Indication Dosage Frequency Signature Comments Components Source Medication Medication Date Date Medication? Clinician (SIG) Name Name FENTanyl PF 2020-10- No 100ug 100 mcg, NPI:183 (SUBLIMAZE -10 [place] [id number] 81 (PF)) 13:30: 12:35 Push, injection 00 :00 ONCE, 1 100 mcg dose, On Fri08/22/21 at 0730, KAHLIL INSULIN 2020-0 Yes 5U inject 5 NPI:18 3 ASPART 3-07 Units [id number] (NOVOLOG 22:47: under the FLEXPEN SC) 18 skin. mirtazapine 2020-0 Yes 7.5mg Take 7.5 N PI:183 7.5 mg 3-07 mg by [id number] tablet 22:47: mouth at 18 bedtime. HYDROmorpho 2020-0 Yes 4mg Take 4 mg N PI:183 ne 3-07 by mouth 2 [id number] (DILAUDID) 22:47: (two) 2 mg tablet 18 times daily. INSULIN 2020-0 Yes 5U inject 5 NPI:18 3 ASPART 3-07 Units [id number] (NOVOLOG 22:47: under the FLEXPEN SC) 18 skin. mirtazapine 202-0 Yes 7.5mg Take 7.5 N PI:183 7.5 mg 3-07 mg by [id number] tablet 22:47: mouth at 18 bedtime. HYDROmorpho 2021-0 Yes 4mg Take 4 mg N PI:183 ne 3-07 by mouth 2 [id number] (DILAUDID) 22:47: (two) 2 mg tablet 18 times daily. INSULIN 202-0 Yes 5U inject 5 NPI:18 3 ASPART 3-07 Units [id number] (NOVOLOG 22:47: under the FLEXPEN SC) 18 skin. mirtazapine 2021-0 Yes 7.5mg Take 7.5 N PI:183 7.5 mg 3-07 mg by [id number] tablet 22:47: mouth at 18 bedtime. HYDROmorpho 2021-0 Yes 4mg Take 4 mg N PI:183 ne 3-07 by mouth 2 [id number] (DILAUDID) 22:47: (two) 2 mg tablet 18 times daily. INSULIN 2021-0 Yes 5U inject 5 NPI:18 3 ASPART 3-07 Units [id number] (NOVOLOG 16:47: under the FLEXPEN SC) 18 skin. mirtazapine 2021-0 Yes 7.5mg Take 7.5 N PI:183 7.5 mg 3-07 mg by [id number] tablet 16:47: mouth at 18 bedtime. HYDROmorpho 2021-0 Yes 4mg Take 4 mg N PI:183 ne 3-07 by mouth 2 [id number] (DILAUDID) 16:47: (two) 2 mg tablet 18 times daily. NaCl 0.9% 0 Yes 500mL at 100 NPI:1 83 (NS) IV 3-07 mL/hr, IV [id number] infusion 14:45: Infusion, 500 mL 00 CONTINUOUS , Starting 12/17/20 at 0845, Until Discontinu ed, Routine amLODIPine 2020-0 Yes [id number] 10mg Take 1 NPI:183 10 mg 3-07 tablet by [id number] tablet 00:00: mouth 00 daily. clotrimazol 2020-0 Yes [id number] Apply to NPI:183 e 1 % 3-07 face/ears, [id number] topical 00:00: armpits, cream 00 pannus and back/any other rash twice a day fluocinonid 2020-0 Yes [id number] Apply to NPI:183 e 0.05 % 3-07 scalp [id number] solution 00:00: twice a 00 day triamcinolo 2020-0 Yes [id number] Apply to NPI:183 ne 3-07 back, [id number] acetonide 00:00: armpits 0.1 % cream 00 and other affected areas twice daily, please mix with clotrimazo le hydrOXYzine 2021-0 Yes [id number] 10mg Take 1 NPI:183 10 mg 3-07 tablet by [id number] tablet 00:00: mouth 2 00 (two) times daily. amLODIPine 2020-0 Yes [id number] 10mg Take 1 NPI:183 10 mg 3-07 tablet by [id number] tablet 00:00: mouth 00 daily. clotrimazol 2020-0 Yes [id number] Apply to NPI:183 e 1 % 3-07 face/ears, [id number] topical 00:00: armpits, cream 00 pannus and back/any other rash twice a day fluocinonid 2020-0 Yes [id number] Apply to NPI:183 e 0.05 % 3-07 scalp [id number] solution 00:00: twice a 00 day triamcinolo 2020-0 Yes [id number] Apply to NPI:183 ne 3-07 back, [id number] acetonide 00:00: armpits 0.1 % cream 00 and other affected areas twice daily, please mix with clotrimazo le hydrOXYzine 2020-0 Yes [id number] 10mg Take 1 NPI:183 10 mg 3-07 tablet by [id number] tablet 00:00: mouth 2 00 (two) times daily. amLODIPine 0 Yes [id number] 10mg Take 1 NPI:183 10 mg 3-07 tablet by [id number] tablet 00:00: mouth 00 daily. clotrimazol 2020-0 Yes [id number] Apply to NPI:183 e 1 % 3-07 face/ears, [id number] topical 00:00: armpits, cream 00 pannus and back/any other rash twice a day fluocinonid 2020-0 Yes [id number] Apply to NPI:183 e 0.05 % 3-07 scalp [id number] solution 00:00: twice a 00 day triamcinolo 202-0 Yes [id number] Apply to NPI:183 ne 3-07 back, [id number] acetonide 00:00: armpits 0.1 % cream 00 and other affected areas twice daily, please mix with clotrimazo le hydrOXYzine 2020-0 Yes [id number] 10mg Take 1 NPI:183 10 mg 3-07 tablet by [id number] tablet 00:00: mouth 2 00 (two) times daily. amLODIPine 2021-0 Yes [id number] 10mg Take 1 NPI:183 10 mg - tablet by [id number] tablet 00:00: mouth 00 daily. clotrimazol Yes [id number] Apply to NPI:183 e 1 % 07 face/ears, [id number] topical 00:00: armpits, cream 00 pannus and back/any other rash twice a day fluocinonid Yes [id number] Apply to NPI:183 e 0.05 % 12-17 scalp [id number] solution 00:00: twice a 00 day triamcinolo Yes [id number] Apply to NPI:183 ne 3-07 back, [id number] acetonide 00:00: armpits 0.1 % cream 00 and other affected areas twice daily, please mix with clotrimazo le hydrOXYzine Yes [id number] 10mg Take 1 NPI:183 10 mg 12-17 tablet by [id number] tablet 00:00: mouth 2 00 (two) times daily. cephALEXin 2020- No [id number] 500mg Take 1 NPI:183 500 mg 12-17 capsule by [id number] 1 capsule 00:00: 05:59 mouth 00 :00 every 6 (six) hours for 3 days. cephALEXin 2020- No [id number] 500mg Take 1 NPI:183 500 mg 12-17- capsule by [id number] 1 capsule 00:00: 05:59 mouth 00 :00 every 6 (six) hours for 3 days. hydrOXYzine 2020- No [id number] 10mg Take 1 NPI:183 10 mg 12-17- tablet by [id number] tablet 00:00: 00:00 mouth 2 00 :00 (two) times daily. 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 I:183 injection 4 12-16-06 IV Push, 131 8781 mg 11:15: 10:58 ONCE, 1 00 :00 dose, 12/16/20 at 0515, Routine lactated 2020- No 1000mL at 125 NPI: 183 ringers IV 12-16 03-06 mL/hr, [id number] 1 infusion 01:00: 00:16 1,000 mL, 1,000 mL 00 :00 IV Infusion, ONCE, 1 dose, 12/15/20 at 1900, Routine iohexol 2020- No 100mL 100 mL, NPI:1 83 (OMNIPAQUE 12-15-05 Intravenou 13 [id number] 350 22:24: 22:24 s, ONCE, 1 BULK-100 00 :00 dose, Fri mL) 12/15/20 at injection 1645, 100 mL Routine cephALEXin 2020- No 500mg 500 mg, CHEMISTRY [employer]ACULTY MEMBER I:183 (KEFLEX) 12-15 03-10 Oral, Q6H, 1318 781 capsule 500 19:00: 17:59 20 doses, mg 00 :00 First dose on Fri12/15/20 at 1300, Last dose on Fri12/20/20 at 0600, KAHLIL
Re ason for Anti-Infec tive: Documented Infection< br>Documen ronan Infection Site: Skin / Soft Tissue
Duration of Therapy: 7 days NaCl 0.9% 2020- No 500mL at 999 NPI: 183 (NS) bolus 12-15 03-05 mL/hr, 500 13 [id number] infusion 16:00: 15:26 mL, IV 500 mL 00 :00 Piggyback, ONCE, 1 dose, Fri12/15/20 at 1000, STAT HYDROmorpho 0 Yes 4mg 4 mg, NPI:1 83 ne 3-05 Oral, BID, [id number] (DILAUDID) 15:30: First dose tablet 4 mg 00 (after last modificati on) on Fri12/15/20 at 0930, Until Discontinu ed, Routine amLODIPine 2020- No [id number] 10mg Take 1 NPI:183 10 mg 12-15 tablet by [id number] tablet 00:00: 00:00 mouth 00 :00 daily. HYDROmorpho 2020- No 1mg 1 mg, NPI: 183 ne 12-14- Oral, [id number] (DILAUDID) 17:35: 15:18 Q6HPRN, tablet 1 mg 30 :06 Starting Fri12/14/20 at 1135, Until Fri12/15/20 at 0918, Routine, Pain (scale 7-10) hydrOXYzine Yes 10mg 10 mg, NPI: 183 (ATARAX) 3-04 Oral, BID, [id number] 81 tablet 10 17:30: First dose mg 00 on Fri12/14/20 at 1130, Until Discontinu ed, Routine lisinopriL Yes 5mg 5 mg, NPI:18 3 (PRINIVIL,Z 3-04 Oral, [id number] ESTRIL) 17:30: DAILY, tablet 5 mg 00 First dose on Fri12/14/20 at 1130, Until Discontinu ed, Routine triamcinolo 2020- No [id number] Apply to NPI:183 ne 12-14 back, [id number] acetonide 00:00: 00:00 armpits 0.1 % cream 00 :00 and other affected areas twice daily, please mix with clotrimazo le clotrimazol 2020- No [id number] Apply to NPI:183 e 1 % 12-14 face/ears, [id number] topical 00:00: 00:00 armpits, cream 00 :00 pannus and back/any other rash twice a day fluocinonid 2020- No [id number] Apply to NPI:183 e 0.05 % 12-14- scalp [id number] solution 00:00: 00:00 twice a 00 :00 day hydrOXYzine 2020- No [id number] 10mg Take 1 NPI:183 10 mg 12-14- tablet by [id number] tablet 00:00: 00:00 mouth 2 00 :00 (two) times daily. metoclopram No 10mg 10 mg, IV NPI:183 samantha HCl 12-14-06 Piggyback, [id number] 81 (REGLAN) 10 00:00: 18:22 Q6H, First mg in NaCl 00 :41 dose on 0.9% (NS) Fri12/13/20 piggyback at 1800, Until Discontinu ed, 50 mL labetaloL No 20mg 20 mg, NPI:1 83 (NORMODYNE) 12-13 03-03 Slow IV [id number] 781 injection 21:57: 23:52 Push, 20 mg 00 :00 ONCE, 1 dose, Fri12/13/20 at 1600, Routine amLODIPine Yes 10mg 10 mg, NPI:1 83 (NORVASC) 3-03 Oral, [id number] tablet 10 21:00: DAILY, mg 00 First dose on Fri12/13/20 at 1500, Until Discontinu ed, Routine proMETHazin 2020- No 25mg 25 mg, IV NPI:183 e 12-13- Piggyback, [id number] (PHENERGAN) 14:22: 21:56 Q4HPRN, 25 mg in 04 :32 Starting NaCl 0.9% Fri12/13/20 (NS) 50 mL at 0822, IV Until Fri piggyback 12/13/20 at 1556, Routine, Nausea and Vomiting (N/V), N/V unresponsi ve to Ondansetro n ondansetron Yes 4mg 4 mg, Slow NPI:183 (ZOFRAN 3-03 IV Push, [id number] (PF)) 10:07: Q6HPRN, injection 4 28 Starting mg Fri12/13/20 at 0407, Until Discontinu ed, Routine, Nausea and Vomiting (N/V) ondansetron 2020- No 4mg 4 mg, Slow NPI:183 (ZOFRAN 12-13- IV Push, [id number] (PF)) 04:55: 05:44 ONCE, 1 injection 4 00 :00 dose, Tue mg 12/12/20 at 2300, Routine traMADoL 2020- No 50mg 50 mg, NPI:18 3 (ULTRAM) 12-13-03 Oral, [id number] tablet 50 03:45: 03:34 ONCE, 1 mg 00 :00 dose, 12/12/20 at 2145, Routine insulin Yes 15U 15 Units, NPI:1 83 glargine 12-12 Subcutaneo [id number] 81 (LANTUS 15:00: us, DAILY, U-100) 00 First dose injection on Tue 15 Units 12/12/20 at 0900, Until Discontinu ed hydrOXYzine 2020- No 10mg 10 mg, NPI :183 (ATARAX) 12-12- Oral, [id number] tablet 10 08:15: 07:33 ONCE, 1 mg 00 :00 dose, 12/12/20 at 0215, Routine mirtazapine Yes 7.5mg 7.5 mg, CHEMISTRY [employer]ACULTY MEMBER I:183 (REMERON) 3- Oral, QHS, 1318 781 tablet 7.5 03:00: First dose mg 00 on Fri12/11/20 at 2100, Until Discontinu ed, Routine venlafaxine Yes 300mg 300 mg, CHEMISTRY FACULTY MEMBER I:183 XR (EFFEXOR 3-02 Oral, QHS, 13 63379 XR) 24 hr 03:00: First dose capsule 300 00 on Fri mg 12/11/20 at 2100, Until Discontinu ed, Routine fluocinonid Yes Topical, CHEMISTRY FACULTY MEMBER I:183 e (LIDEX) 3-02 BID, First 1318 781 0.05 % 02:00: dose on solution 00 Fri12/11/20 at 2000, Until Discontinu ed, Routine acetaminoph 2020-2020- No 1{tbl} 1 tablet, NPI:183 en-codeine 12-11 03-05 Oral, [id number] (TYLENOL 23:23: 13:49 Q6HPRN, #3) 300-30 43 :08 Starting mg tablet 1 Fri12/11/20 tablet at 1723, Until Fri12/15/20 at 0749, Routine, Pain (scale 4-6) enoxaparin Yes 40mg 40 mg, NPI:1 83 (LOVENOX) 12-11 Subcutaneo 1318 781 injection 23:00: us, DAILY, 40 mg 00 First dose on Fri12/11/20 at 1700, Until Discontinu ed, Routine clotrimazol Yes Topical, CHEMISTRY FACULTY MEMBER I:183 e 12-11 BID, First [id number] (LOTRIMIN) 19:15: dose on 1 % topical Fri12/11/20 cream at 1315, Until Discontinu ed, Routine hydrocortis Yes Topical NPI :183 one 2.5 % 12-11 ([place] [id number] 81 cream 19:15: Affected 00 Areas), BID, First dose on Fri12/11/20 at 1315, Until Discontinu ed, Routine triamcinolo Yes Topical, CHEMISTRY FACULTY MEMBER I:183 ne 12-11 BID, First [id number] acetonide 19:00: dose (TRIDERM) 00 (after 0.1 % cream last modificati on) on Fri12/11/20 at 1300, Until Discontinu ed, Routine ceFAZolin 2020- No 1000mg 1,000 mg, NPI:183 (ANCEF) 12-11 03-05 IV [id number] 1,000 mg in 19:00: 17:35 Piggyback, NaCl 0.9% 00 :26 Q8H ABX, (NS) 50 mL First dose MINI-BAG on Fri12/11/20 at 1300, Until Discontinu ed, 50 mL
R jose armando for Anti-Infec tive: Documented Infection< br>Documen ronan Infection Site: Skin / Soft Tissue
Duration of Therapy: 7 days Sliding Yes Subcutaneo NPI: 183 Scale 12-11 us, TID [id number] Insulin - 18:00: MEALS+HS, Lispro 00 First dose (HumaLOG) + on Fri Fsbg 12/11/20 at Testing 1200, Until Discontinu ed, Routine insulin Yes 5U 5 Units, NPI:18 3 lispro 12-11 Subcutaneo [id number] (human) 18:00: us, TID (HumaLOG 00 MEALS, U-100) First dose injection 5 on Mon Units 12/11/20 at 1200, Until Discontinu ed Polyethylen Yes 17g 17 g, NPI:1 83 e Glycol 12-11 Oral, [id number] 8463 17:47: X30MELO, (MIRALAX) 05 Starting powder 17 g 12/11/20 at 1147, Until Discontinu ed, Routine, Constipati on acetaminoph Yes 650mg 650 mg, CHEMISTRY [employer]ACULTY MEMBER I:183 en 12-11 Oral, [id number] (TYLENOL) 16:51: Q6HPRN, tablet 650 28 Starting mg 12/11/20 at 1051, Until Discontinu ed, Routine, Pain (scale 1-3) FENTanyl PF 2020- No 75ug 75 mcg, CHEMISTRY FACULTY MEMBER I:183 (SUBLIMAZE 12-[place] [address] 81 (PF)) 15:00: 13:53 Push, injection 00 :00 ONCE, 1 75 mcg dose, 12/11/20 at 0900, Routine vancomycin 2020- No 1000mg 1,000 mg, NPI:183 (VANCOCIN) 12-11 IV [id number] injection 14:00: 17:48 Piggyback, 1,000 mg 00 :24 Q12H, First dose on 12/11/20 at 0800, Until Discontinu ed, KAHLIL
Re ason for Anti-Infec tive: Empiric Therapy for Suspected Infection< br>Empiric Therapy Site: Skin / Soft tissue
Duration of therapy: 72 hours NaCl 0.9% 2020- No 30mL/kg at 999 CHEMISTRY FACULTY MEMBER I:183 (NS) bolus 12-11 mL/hr, [id number] 1 infusion 12:30: 12:05 2,721 mL 2,721 mL 00 :00 (30 mL/kg ?90.7 kg), IV Piggyback, ONCE, 1 dose, Fri12/11/20 at 0630, STAT piperacilli 2020- No 3.375g 3.375 g, NPI:183 n-tazobacta 312-11 IV [id number] m (ZOSYN) 12:00: 17:48 Piggyback, injection 00 :24 Q6H, First 3.375 g dose on Fri12/11/20 at 0600, Until Discontinu ed, KAHLIL
Re ason for Anti-Infec tive: Empiric Therapy for Suspected Infection< br>Empiric Therapy Site: Skin / Soft tissue
Duration of therapy: 72 hours sennosides- 2020- Yes [id number] 1{tbl} Take 1 NPI:183 docusate 2-09 tablet by [id number] 1 sodium 00:00: mouth 2 8.6-50 mg 00 (two) per tablet times daily. hydrocortis 2020- Yes [id number] Apply to NPI:183 one 2.5 % 2-09 affected [id number] 1 cream 00:00: area(s) 2 00 (two) times daily. blood sugar Yes [id number] Use to NPI:183 diagnostic 2- check 5202371 (FREESTYLE 00:00: blood LITE 00 glucose STRIPS) 4-5 times strip daily. Polyethylen Yes [id number] 17g Take 1 NPI:183 e Glycol 2-09 Packet by [id number] 1 3350 17 00:00: mouth gram powder 00 every 24 (twenty-fo ur) hours as needed for Constipati on. sennosides- 0 Yes [id number] 1{tbl} Take 1 NPI:183 docusate 2-09 tablet by [id number] 1 sodium 00:00: mouth 2 8.6-50 mg 00 (two) per tablet times daily. hydrocortis 2020-0 Yes [id number] Apply to NPI:183 one 2.5 % 2-09 affected [id number] 1 cream 00:00: area(s) 2 00 (two) times daily. blood sugar Yes [id number] Use to NPI:183 diagnostic 2-09 check [id number] (FREESTYLE 00:00: blood LITE 00 glucose STRIPS) 4-5 times strip daily. Polyethylen 2020-0 Yes [id number] 17g Take 1 NPI:183 e Glycol 2-09 Packet by [id number] 1 3350 17 00:00: mouth gram powder 00 every 24 (twenty-fo ur) hours as needed for Constipati on. sennosides- Yes [id number] 1{tbl} Take 1 NPI:183 docusate 2-09 tablet by [id number] 1 sodium 00:00: mouth 2 8.6-50 mg 00 (two) per tablet times daily. hydrocortis Yes [id number] Apply to NPI:183 one 2.5 % 2-09 affected [id number] 1 cream 00:00: area(s) 2 00 (two) times daily. blood sugar Yes [id number] Use to NPI:183 diagnostic 2- check [id number] (FREESTYLE 00:00: blood LITE 00 glucose STRIPS) 4-5 times strip daily. Polyethylen Yes [id number] 17g Take 1 NPI:183 e Glycol 2-09 Packet by [id number] 1 3350 17 00:00: mouth gram powder 00 every 24 (twenty-fo ur) hours as needed for Constipati on. sennosides- Yes [id number] 1{tbl} Take 1 NPI:183 docusate 2-09 tablet by 519541 1 sodium 00:00: mouth 2 8.6-50 mg 00 (two) per tablet times daily. hydrocortis Yes [id number] Apply to NPI:183 one 2.5 % 2-09 affected [id number] 1 cream 00:00: area(s) 2 00 (two) times daily. blood sugar Yes [id number] Use to NPI:183 diagnostic 2- check [id number] (FREESTYLE 00:00: blood LITE 00 glucose STRIPS) 4-5 times strip daily. Polyethylen Yes [id number] 17g Take 1 NPI:183 e Glycol 2-09 Packet by [id number] 1 3350 17 00:00: mouth gram powder 00 every 24 (twenty-fo ur) hours as needed for Constipati on. Insulin 2020- No [id number] 15U inject 15 NPI:183 Glargine 2- 03-12 Units [id number] (LANTUS 00:00: 05:59 under the SOLOSTAR 00 :00 skin every U-100 morning INSULIN) for 30 100 unit/mL days. (3 mL) injection venlafaxine 2020- No [id number] 150mg Take 1 NPI:183 XR 150 mg 11-21 capsule by 131 8781 24 hr 00:00: 05:59 mouth 3 capsule 00 :00 (three) times daily for 30 days. Insulin 2020- No [id number] 15U inject 15 NPI:183 Glargine 11-21 Units [id number] (LANTUS 00:00: 05:59 under the SOLOSTAR 00 :00 skin every U-100 morning INSULIN) for 30 100 unit/mL days. (3 mL) injection venlafaxine No [id number] 150mg Take 1 NPI:183 XR 150 mg 11-21 capsule by 131 8781 24 hr 00:00: 05:59 mouth 3 capsule 00 :00 (three) times daily for 30 days. triamcinolo 2020- No [id number] Apply to NPI:183 ne 11-21 area(s) 2 [id number] acetonide 00:00: 00:00 (two) 0.1 % cream 00 :00 times daily. cephALEXin No [id number] 1000mg Take 2 NPI:183 500 mg 11-21 capsules [id number] capsule 00:00: 00:00 by mouth 3 00 :00 (three) times daily. doxycycline 2020- No [id number] 100mg Take 1 NPI:183 hyclate 100 11-21 capsule by 1 [id number] mg capsule 00:00: 00:00 mouth 00 :00 every 12 (twelve) hours. lactobacill 2020- No [id number] 1{tbl} Take 1 NPI:183 us 11-21 tablet by [id number] acidophilus 00:00: 00:00 mouth 2 25 million 00 :00 (two) cell -100 times mg captab daily. bisacodyL 2020- No [id number] 10mg Insert 1 NPI:183 10 mg 11-21 Suppositor [id number] suppository 00:00: 00:00 y into 00 :00 rectum at bedtime as needed for Constipati on. ALPRAZolam 2020- No [id number] .25mg Take 1 NPI:183 (XANAX) 11-21 tablet by 925952 1 0.25 mg 00:00: 00:00 mouth 2 tablet 00 :00 (two) times daily. hydrOXYzine 2020- No [id number] 20mg Take 2 NPI:183 10 mg 11-21 tablets by [id number] tablet 00:00: 00:00 mouth 00 :00 every 8 (eight) hours as needed for Itching or Anxiety. HYDROmorpho 2019-10 Yes 4mg Take 4 mg N PI:183 ne 4 mg 1-12 by mouth 2 [id number] 1 tablet 01:13: (two) 36 times daily. HYDROMORPHO 2019-10 Yes Inject as NPI:183 NE HCL 1-12 directed. [id number] (DILAUDID 01:13: INJECTION) 36 venlafaxine 2019-10 Yes 150mg Take 150 N PI:183 XR (EFFEXOR 1-12 mg by [id number] XR) 150 mg 01:13: mouth 3 24 hr 36 (three) capsule times daily. tizanidine 2019-10 Yes 6mg Take 6 mg CHEMISTRY FACULTY MEMBER I:183 (ZANAFLEX) 1-12 by mouth 3 131 8781 6 mg 01:13: (three) capsule 36 times daily. Insulin 2019-10 Yes 15U inject 15 NPI:1 83 Glargine 1-12 Units [id number] (LANTUS 01:13: under the SOLOSTAR) 36 skin. 100 unit/mL (3 mL) InPn INSULIN 2019-10 Yes 5U inject 5 NPI:18 3 ASPART 1-12 Units [id number] (NOVOLOG 01:13: under the FLEXPEN SC) 36 skin. ALPRAZolam 2019-10 Yes .25mg Take 0.25 N PI:183 (XANAX) 1-12 mg by [id number] 0.25 mg 01:13: mouth 2 tablet 36 (two) times daily. HYDROmorpho 2019-10 Yes 4mg Take 4 mg N PI:183 ne 4 mg 1-12 by mouth 2 [id number] 1 tablet 01:13: (two) 36 times daily. HYDROMORPHO 2019- Yes Inject as NPI:183 NE HCL 1-12 directed. [id number] (DILAUDID 01:13: INJECTION) 36 venlafaxine 2019-10 Yes 150mg Take 150 N PI:183 XR (EFFEXOR 1-12 mg by [id number] XR) 150 mg 01:13: mouth 3 24 hr 36 (three) capsule times daily. tizanidine 2019-10 Yes 6mg Take 6 mg CHEMISTRY FACULTY MEMBER I:183 (ZANAFLEX) 1-12 by mouth 3 131 8781 6 mg 01:13: (three) capsule 36 times daily. Insulin 2019-10 Yes 15U inject 15 NPI:1 83 Glargine 1-12 Units [id number] (LANTUS 01:13: under the SOLOSTAR) 36 skin. 100 unit/mL (3 mL) InPn INSULIN 2019-10 Yes 5U inject 5 NPI:18 3 ASPART 1-12 Units [id number] (NOVOLOG 01:13: under the FLEXPEN SC) 36 skin. ALPRAZolam 2019-10 Yes .25mg Take 0.25 N PI:183 (XANAX) 1-12 mg by [id number] 0.25 mg 01:13: mouth 2 tablet 36 (two) times daily. HYDROmorpho 2019-10 Yes 4mg Take 4 mg N PI:183 ne 4 mg 1-12 by mouth 2 [id number] 1 tablet 01:13: (two) 36 times daily. HYDROMORPHO 2019-10 Yes Inject as NPI:183 NE HCL 1-12 directed. [id number] (DILAUDID 01:13: INJECTION) 36 venlafaxine 2019-10 Yes 150mg Take 150 N PI:183 XR (EFFEXOR 1-12 mg by [id number] XR) 150 mg 01:13: mouth 3 24 hr 36 (three) capsule times daily. tizanidine 2019-10 Yes 6mg Take 6 mg CHEMISTRY FACULTY MEMBER I:183 (ZANAFLEX) 1-12 by mouth 3 131 8781 6 mg 01:13: (three) capsule 36 times daily. Insulin 2019- Yes 15U inject 15 NPI:1 83 Glargine 1-12 Units [id number] (LANTUS 01:13: under the SOLOSTAR) 36 skin. 100 unit/mL (3 mL) InPn INSULIN Yes 5U inject 5 NPI:18 3 ASPART 1-12 Units [id number] (NOVOLOG 01:13: under the FLEXPEN SC) 36 skin. ALPRAZolam 2019- Yes .25mg Take 0.25 N PI:183 (XANAX) 1-12 mg by [id number] 0.25 mg 01:13: mouth 2 tablet 36 (two) times daily. HYDROmorpho 2019- Yes 4mg Take 4 mg N PI:183 ne 4 mg 1-12 by mouth 2 [id number] 1 tablet 01:13: (two) 36 times daily. HYDROMORPHO 2019- Yes Inject as NPI:183 NE HCL 1-12 directed. [id number] (DILAUDID 01:13: INJECTION) 36 venlafaxine 2019-10 Yes 150mg Take 150 N PI:183 XR (EFFEXOR 1-12 mg by [id number] XR) 150 mg 01:13: mouth 3 24 hr 36 (three) capsule times daily. tizanidine 2019-10 Yes 6mg Take 6 mg CHEMISTRY FACULTY MEMBER I:183 (ZANAFLEX) 1-12 by mouth 3 131 8781 6 mg 01:13: (three) capsule 36 times daily. Insulin 2019-10 Yes 15U inject 15 NPI:1 83 Glargine 1-12 Units [id number] (LANTUS 01:13: under the SOLOSTAR) 36 skin. 100 unit/mL (3 mL) InPn INSULIN 2019- Yes 5U inject 5 NPI:18 3 ASPART 1-12 Units [id number] (NOVOLOG 01:13: under the FLEXPEN SC) 36 skin. ALPRAZolam 2019- Yes .25mg Take 0.25 N PI:183 (XANAX) 1-12 mg by [id number] 0.25 mg 01:13: mouth 2 tablet 36 (two) times daily. HYDROmorpho 2019- Yes 4mg Take 4 mg N PI:183 ne 4 mg 1-12 by mouth 2 [id number] 1 tablet 01:13: (two) 36 times daily. HYDROMORPHO 2019- Yes Inject as NPI:183 NE HCL 1-12 directed. [id number] (DILAUDID 01:13: INJECTION) 36 venlafaxine 2019- Yes 150mg Take 150 N PI:183 XR (EFFEXOR 1-12 mg by [id number] XR) 150 mg 01:13: mouth 3 24 hr 36 (three) capsule times daily. tizanidine 2019-10 Yes 6mg Take 6 mg CHEMISTRY FACULTY MEMBER I:183 (ZANAFLEX) 1-12 by mouth 3 131 8781 6 mg 01:13: (three) capsule 36 times daily. Insulin 2019-10 Yes 15U inject 15 NPI:1 83 Glargine 1-12 Units [id number] (LANTUS 01:13: under the SOLOSTAR) 36 skin. 100 unit/mL (3 mL) InPn INSULIN 2019-10 Yes 5U inject 5 NPI:18 3 ASPART 1-12 Units [id number] (NOVOLOG 01:13: under the FLEXPEN SC) 36 skin. ALPRAZolam 2019-10 Yes .25mg Take 0.25 N PI:183 (XANAX) 1-12 mg by [id number] 0.25 mg 01:13: mouth 2 tablet 36 (two) times daily. HYDROmorpho 2019-10 Yes 4mg Take 4 mg N PI:183 ne 4 mg 1-12 by mouth 2 [id number] 1 tablet 01:13: (two) 36 times daily. HYDROMORPHO 2019-10 Yes Inject as NPI:183 NE HCL 1-12 directed. [id number] (DILAUDID 01:13: INJECTION) 36 venlafaxine 2019-10 Yes 150mg Take 150 N PI:183 XR (EFFEXOR 1-12 mg by [id number] XR) 150 mg 01:13: mouth 3 24 hr 36 (three) capsule times daily. tizanidine 2019-10 Yes 6mg Take 6 mg CHEMISTRY FACULTY MEMBER I:183 (ZANAFLEX) 1-12 by mouth 3 131 8781 6 mg 01:13: (three) capsule 36 times daily. Insulin 2019-10 Yes 15U inject 15 NPI:1 83 Glargine 1-12 Units [id number] (LANTUS 01:13: under the SOLOSTAR) 36 skin. 100 unit/mL (3 mL) InPn INSULIN 2019-10 Yes 5U inject 5 NPI:18 3 ASPART 1-12 Units [id number] (NOVOLOG 01:13: under the FLEXPEN SC) 36 skin. ALPRAZolam 2019-10 Yes .25mg Take 0.25 N PI:183 (XANAX) 1-12 mg by [id number] 0.25 mg 01:13: mouth 2 tablet 36 (two) times daily. HYDROmorpho 2019-10 Yes 4mg Take 4 mg N PI:183 ne 4 mg 1-12 by mouth 2 [id number] 1 tablet 01:13: (two) 36 times daily. HYDROMORPHO 2019-10 Yes Inject as NPI:183 NE HCL 1-12 directed. [id number] (DILAUDID 01:13: INJECTION) 36 venlafaxine 2019-10 Yes 150mg Take 150 N PI:183 XR (EFFEXOR 1-12 mg by [id number] XR) 150 mg 01:13: mouth 3 24 hr 36 (three) capsule times daily. tizanidine 2019-10 Yes 6mg Take 6 mg CHEMISTRY FACULTY MEMBER I:183 (ZANAFLEX) 1-12 by mouth 3 131 8781 6 mg 01:13: (three) capsule 36 times daily. Insulin 2019-10 Yes 15U inject 15 NPI:1 83 Glargine 1-12 Units [id number] (LANTUS 01:13: under the SOLOSTAR) 36 skin. 100 unit/mL (3 mL) InPn INSULIN 2019-10 Yes 5U inject 5 NPI:18 3 ASPART 1-12 Units [id number] (NOVOLOG 01:13: under the FLEXPEN SC) 36 skin. ALPRAZolam 2019-10 Yes .25mg Take 0.25 N PI:183 (XANAX) 1-12 mg by [id number] 0.25 mg 01:13: mouth 2 tablet 36 (two) times daily. HYDROXYZINE 2019-10 2020- No 25mg Take 25 mg NPI:183 PAMOATE 1-11 11-11 by mouth [id number] ORAL 20:04: 00:00 daily. 34 :00 hydrocortis 2019- Yes [id number] Apply to NPI:183 one 2.5 % 1-11 affected [id number] 1 cream 00:00: area(s) 2 00 (two) times daily. hydrOXYzine 2019-10 Yes [id number] 20mg Take 2 NPI:183 10 mg 1-11 tablets by [id number] tablet 00:00: mouth 00 every 8 (eight) hours as needed for Itching or Anxiety. Polyethylen 2019-10 Yes [id number] 17g Take 1 NPI:183 e Glycol 1-11 Packet by [id number] 1 3350 17 00:00: mouth gram powder 00 every 24 (twenty-fo ur) hours as needed for Constipati on. hydrocortis 2019-10 Yes [id number] Apply to NPI:183 one 2.5 % 1-11 affected [id number] 1 cream 00:00: area(s) 2 00 (two) times daily. hydrOXYzine 2019-10 Yes [id number] 20mg Take 2 NPI:183 10 mg 1-11 tablets by [id number] tablet 00:00: mouth 00 every 8 (eight) hours as needed for Itching or Anxiety. Polyethylen 2019-10 Yes [id number] 17g Take 1 NPI:183 e Glycol 1-11 Packet by [id number] 1 3350 17 00:00: mouth gram powder 00 every 24 (twenty-fo ur) hours as needed for Constipati on. hydrocortis 2019-10 Yes [id number] Apply to NPI:183 one 2.5 % 1-11 affected [id number] 1 cream 00:00: area(s) 2 00 (two) times daily. hydrOXYzine 2019-10 Yes [id number] 20mg Take 2 NPI:183 10 mg 1-11 tablets by [id number] tablet 00:00: mouth 00 every 8 (eight) hours as needed for Itching or Anxiety. Polyethylen 2019-10 Yes [id number] 17g Take 1 NPI:183 e Glycol 1-11 Packet by [id number] 1 3350 17 00:00: mouth gram powder 00 every 24 (twenty-fo ur) hours as needed for Constipati on. hydrocortis 2019-10 Yes [id number] Apply to NPI:183 one 2.5 % 1-11 affected [id number] 1 cream 00:00: area(s) 2 00 (two) times daily. hydrOXYzine 2019-10 Yes [id number] 20mg Take 2 NPI:183 10 mg 1-11 tablets by [id number] tablet 00:00: mouth 00 every 8 (eight) hours as needed for Itching or Anxiety. Polyethylen 2019-10 Yes [id number] 17g Take 1 NPI:183 e Glycol 1-11 Packet by [id number] 1 3350 17 00:00: mouth gram powder 00 every 24 (twenty-fo ur) hours as needed for Constipati on. hydrocortis 2019-10 Yes [id number] Apply to NPI:183 one 2.5 % 1-11 affected [id number] 1 cream 00:00: area(s) 2 00 (two) times daily. hydrOXYzine 2019-10 Yes [id number] 20mg Take 2 NPI:183 10 mg 1-11 tablets by [id number] tablet 00:00: mouth 00 every 8 (eight) hours as needed for Itching or Anxiety. Polyethylen 2019-10 Yes [id number] 17g Take 1 NPI:183 e Glycol 1-11 Packet by [id number] 1 3350 17 00:00: mouth gram powder 00 every 24 (twenty-fo ur) hours as needed for Constipati on. hydrocortis 2019-10 Yes [id number] Apply to NPI:183 one 2.5 % 1-11 affected [id number] 1 cream 00:00: area(s) 2 00 (two) times daily. hydrOXYzine 2019-10 Yes [id number] 20mg Take 2 NPI:183 10 mg 1-11 tablets by [id number] tablet 00:00: mouth 00 every 8 (eight) hours as needed for Itching or Anxiety. Polyethylen 2019-10 Yes [id number] 17g Take 1 NPI:183 e Glycol 1-11 Packet by [id number] 1 3350 17 00:00: mouth gram powder 00 every 24 (twenty-fo ur) hours as needed for Constipati on. hydrocortis 2019-10 Yes [id number] Apply to NPI:183 one 2.5 % 1-11 affected [id number] 1 cream 00:00: area(s) 2 00 (two) times daily. hydrOXYzine 2019-10 Yes [id number] 20mg Take 2 NPI:183 10 mg 1-11 tablets by [id number] tablet 00:00: mouth 00 every 8 (eight) hours as needed for Itching or Anxiety. Polyethylen 2019-10 Yes [id number] 17g Take 1 NPI:183 e Glycol 1-11 Packet by [id number] 1 3350 17 00:00: mouth gram powder 00 every 24 (twenty-fo ur) hours as needed for Constipati on. triamcinolo 2019-10 2020- No [id number] Apply to NPI:183 ne 1-11 11-26 area(s) 2 [id number] acetonide 00:00: 05:59 (two) 0.1 % cream 00 :00 times daily for 14 days. triamcinolo 2019-10 2020- No [id number] Apply to NPI:183 ne 10-23- area(s) 2 [id number] acetonide 00:00: 05:59 (two) 0.1 % cream 00 :00 times daily for 14 days. triamcinolo 2019-10 2020- No [id number] Apply to NPI:183 ne 10-23 area(s) 2 [id number] acetonide 00:00: 05:59 (two) 0.1 % cream 00 :00 times daily for 14 days. KCL 2019-10 2020- No 40meq 40 mEq, NPI:183 (KLOR-CON 1-10 11-10 Oral, ONCE 131 8781 M20) tablet 16:15: 16:23 NOW, 1 40 mEq 00 :00 dose, Fri08/22/20 at 1015, Routine HYDROmorpho 2019-10 Yes 1mg 1 mg, NPI:1 83 ne 1-10 Oral, [id number] (DILAUDID) 15:07: Q6HPRN, tablet 1 mg 53 Starting Fri08/22/20 at 0907, Until Discontinu ed, Routine, Pain (scale 7-10) hydrocortis 2019-10 Yes Topical NPI :183 one 2.5 % 1-10 ([place] [id number] 81 cream 02:00: Affected 00 Areas), BID, First dose on Fri08/21/20 at 1999, Until Discontinu ed, Routine triamcinolo 2019-10 Yes Topical, CHEMISTRY FACULTY MEMBER I:183 ne 1-10 BID, First [id number] acetonide 02:00: dose on (TRIDERM) 00 Mon 0.1 % cream 08/21/20 at 2000, Until Discontinu ed, Routine hydrOXYzine 2019-10 Yes 20mg 20 mg, NPI: 183 (ATARAX) 1-09 Oral, [id number] tablet 20 17:39: Q8HPRN, mg 12 Starting Fri08/21/20 at 1139, Until Discontinu ed, Routine, Itching, Anxiety sennosides- 2020- Yes 1{tbl} 1 tablet, NPI:183 docusate 1-09 Oral, [id number] sodium 15:00: DAILY, (SENOKOT-S) 00 First dose 8.6-50 mg on Fri per tablet 08/21/20 at 1 tablet 0900, Until Discontinu ed, Routine hydrocortis 2019-10 2020- No Topical CHEMISTRY FACULTY MEMBER I:183 one 1 % 10-21 (Apply To [id number] 1 cream 15:00: 22:54 Affected 00 :48 Areas), DAILY, First dose on Fri08/21/20 at 0900, Until Discontinu ed, Routine venlafaxine 2019-10 Yes 150mg 150 mg, CHEMISTRY FACULTY MEMBER I:183 XR (EFFEXOR 10-21 Oral, TID, 13 29459 XR) 24 hr 14:00: First dose capsule 150 00 on Fri mg 08/21/20 at 0800, Until Discontinu ed, Routine heparin 2019-10 Yes 5000U 5,000 NPI:183 (porcine) 10-21 Units, [id number] injection 14:00: Subcutaneo 5,000 Units 00 us, Q12H, First dose on Fri08/21/20 at 0800, Until Discontinu ed, Routine diphenhydrA 2019-10 2020- No 25mg 25 mg, NPI :183 MINE 10-21 Oral, [id number] (BENADRYL) 12:56: 17:39 Q8HPRN, tablet 25 59 :43 Starting mg Fri08/21/20 at 0656, Until Fri08/21/20 at 1139, Routine, Itching, Mild Rash, Congestion /Allergies , alternate with hydroxyzin e hydrOXYzine 2019-10 2020- No 10mg 10 mg, NPI :183 (ATARAX) 10-21 Oral, [id number] tablet 10 10:20: 12:57 Q6HPRN, mg 22 :12 Starting Fri08/21/20 at 0420, Until Fri08/21/20 at 0657, Routine, Itching, Anxiety Sliding 2019-10 Yes Subcutaneo NPI: 183 Scale 10-21 us, Q4H, [id number] Insulin - 10:00: First dose Aspart 00 (after (NOVOLOG) + last Fsbg modificati Testing on) on Fri08/21/20 at 0400, Until Discontinu ed, Routine lidocaine 5 2019-10 2020- No Topical, N PI:183 % ointment 10-21 ONCE, 1 52795 81 09:30: 09:14 dose, Mon 00 :00 08/21/20 at 0330, Routine Polyethylen 2019-10 Yes 17g 17 g, NPI:1 83 e Glycol 10-21 Oral, [id number] 4462 08:29: H21ADOH, (MIRALAX) 09 Starting powder 17 g 08/21/20 at 0229, Until Discontinu ed, Routine, Constipati on lanolin 2019-10 Yes Topical, NPI:18 3 alcohol-mo- 10-21 PRN, [id number] w.pet-ceres 08:26: Starting (EUCERIN) 30 Mon cream 08/21/20 at 0226, Until Discontinu ed, Routine, Dermatitis /Rash ALPRAZolam 2019-10 Yes .25mg 0.25 mg, CHEMISTRY FACULTY MEMBER I:183 (XANAX) 10-21 Oral, [id number] tablet 0.25 08:25: BIDPRN, mg 41 Starting 08/21/20 at 0225, Until Discontinu ed, Routine, anxiety traZODONE 2019-10 2020- No 100mg Take 100 CHEMISTRY FACULTY MEMBER I:183 (DESYREL) 10-21 mg by [id number] 100 mg 08:22: 00:00 mouth at tablet 59 :00 bedtime. esomeprazol 2019-10 2020- No 40mg Take 40 mg NPI:183 e (NEXIUM) 10-21 by mouth [id number] 40 mg 08:22: 00:00 daily with capsule 59 :00 breakfast. clonazepam 2019-10 2020- No .25mg Take 0.25 NPI:183 (KLONOPIN) 10-21 mg by [id number] 0.25 mg 08:22: 00:00 mouth 2 disintegrat 59 :00 (two) ing tablet times daily as needed. acetaminoph 2019-10 Yes 650mg 650 mg, CHEMISTRY FACULTY MEMBER I:183 en 10-21 Oral, [id number] (TYLENOL) 07:45: Q6HPRN, tablet 650 24 Starting mg 08/21/20 at 0145, Until Discontinu ed, Routine, Pain (scale 1-3) sotalol 2019-10 2020- No Take by NPI:1 83 (BETAPACE) 10-21 mouth [id number] 240 mg 07:43: 00:00 every 12 tablet 30 :00 (twelve) hours. blood sugar Yes Use to NPI: 183 diagnostic 4-25 check [id number] (FREESTYLE 00:00: blood LITE 00 glucose STRIPS) 4-5 times strip daily. blood sugar Yes Use to NPI: 183 diagnostic 4-25 check [id number] (FREESTYLE 00:00: blood LITE 00 glucose STRIPS) 4-5 times strip daily. blood sugar Yes Use to NPI: 183 diagnostic 4-25 check [id number] (FREESTYLE 00:00: blood LITE 00 glucose STRIPS) 4-5 times strip daily. blood sugar Yes Use to NPI: 183 diagnostic 4-25 check [id number] (FREESTYLE 00:00: blood LITE 00 glucose STRIPS) 4-5 times strip daily. blood sugar Yes Use to NPI: 183 diagnostic 4-25 check [id number] (FREESTYLE 00:00: blood LITE 00 glucose STRIPS) 4-5 times strip daily. blood sugar Yes Use to NPI: 183 diagnostic 4-25 check [id number] (FREESTYLE 00:00: blood LITE 00 glucose STRIPS) 4-5 times strip daily. blood sugar Yes Use to NPI: 183 diagnostic 4-25 check [id number] (FREESTYLE 00:00: blood LITE 00 glucose STRIPS) 4-5 times strip daily. Vital Signs Vital Name Observation Time Observation Value Comments Source Systolic blood pressure 2021-08-22 13:00:00 148 mm[Hg] Diastolic blood 2021-08-22 13:00:00 84 mm[Hg] NPI:1 [id number] pressure Heart rate 2021-08-22 13:00:00 103 /min NPI:1831 [id number] Respiratory rate 2021-08-22 13:00:00 18 /min Oxygen saturation in 2021-08-22 13:00:00 95 /min Arterial blood by Pulse oximetry Body temperature 2021-08-22 12:22:00 36.72 [place] Systolic blood pressure 2020-12-17 18:35:00 139 mm[Hg] Diastolic blood 2020-12-17 18:35:00 87 mm[Hg] NPI:1 [id number] pressure Heart rate 2020-12-17 18:35:00 110 /min NPI:1831 [id number] Body temperature 2020-12-17 18:35:00 37.72 [place] Respiratory rate 2020-12-17 18:35:00 18 /min Oxygen saturation in 2020-12-17 18:35:00 93 /min Arterial blood by Pulse oximetry Body height 2020-12-12 08:21:00 180.3 cm NPI:1831 [id number] Body weight 2020-12-12 08:21:00 103.42 kg NPI:1831 [id number] BMI 2020-12-12 08:21:00 31.80 kg/m2 NPI:1831 [id number] Systolic blood pressure 2020-12-17 18:35:00 139 mm[Hg] Diastolic blood 2020-12-17 18:35:00 87 mm[Hg] NPI:1 [id number] pressure Heart rate 2020-12-17 18:35:00 110 /min NPI:1831 [id number] Body temperature 2020-12-17 18:35:00 37.72 [place] Respiratory rate 2020-12-17 18:35:00 18 /min Oxygen saturation in 2020-12-17 18:35:00 93 /min Arterial blood by Pulse oximetry Body height 2020-12-12 08:21:00 180.3 cm NPI:1831 [id number] Body weight 2020-12-12 08:21:00 103.42 kg NPI:1831 [id number] BMI 2020-12-12 08:21:00 31.80 kg/m2 NPI:1831 [id number] Systolic blood pressure 2020-08-23 19:27:00 140 mm[Hg] Diastolic blood 2020-08-23 19:27:00 79 mm[Hg] NPI:1 [id number] pressure Heart rate 2020-08-23 19:27:00 99 /min NPI:1831 [id number] Body temperature 2020-08-23 19:27:00 36 [place] Respiratory rate 2020-08-23 19:27:00 18 /min Oxygen saturation in 2020-08-23 19:27:00 93 /min Arterial blood by Pulse oximetry Body weight 2020-08-21 07:20:00 104.962 kg NPI:1831 [id number] BMI 2020-08-21 07:20:00 32.27 kg/m2 NPI:1831 [id number] Systolic blood pressure 2020-08-23 19:27:00 140 mm[Hg] Diastolic blood 2020-08-23 19:27:00 79 mm[Hg] NPI:1 [id number] pressure Heart rate 2020-08-23 19:27:00 99 /min NPI:1831 [id number] Body temperature 2020-08-23 19:27:00 36 [place] Respiratory rate 2020-08-23 19:27:00 18 /min Oxygen saturation in 2020-08-23 19:27:00 93 /min Arterial blood by Pulse oximetry Body weight 2020-08-21 07:20:00 104.962 kg NPI:1831 [id number] BMI 2020-08-21 07:20:00 32.27 kg/m2 NPI:1831 [id number] Procedures Procedure Date / Time Performed Performing Clinician [facility] e POCT GLUCOSE (AUTOMATED) 2020-12-17 15:42:00 Harrison, Premal G NPI :[id number] BASIC METABOLIC PANEL (NA, 2020-12-17 10:45:00 Paul Bean K, CL, CO2, GLUCOSE, BUN, CREATININE, CA) CBC WITH DIFF 2020-12-17 10:45:00 Paul Bean NPI:18 [id number] POCT GLUCOSE (AUTOMATED) 2020-12-17 02:36:00 Harrison, Premal G NPI :[id number] XR TIBIA FIBULA 2 VW LEFT 2020-12-16 23:38:00 Paul Bean POCT GLUCOSE (AUTOMATED) 2020-12-16 23:20:00 Harrison, Premal G NPI :[id number] POCT GLUCOSE (AUTOMATED) 2020-12-16 20:10:00 Harrison, Premal G NPI :[id number] POCT GLUCOSE (AUTOMATED) 2020-12-16 14:43:00 Harrison, Premal G NPI :[id number] BASIC METABOLIC PANEL (NA, 2020-12-16 13:51:00 Paul Bean K, CL, CO2, GLUCOSE, BUN, CREATININE, CA) CBC WITH DIFF 2020-12-16 13:51:00 Paul Bean NPI:18 [id number] POCT GLUCOSE (AUTOMATED) 2020-12-16 04:00:00 Harrison, Premal G NPI :[id number] POCT GLUCOSE (AUTOMATED) 2020-12-16 00:14:00 Harrison, Premal G NPI :[id number] CT CHEST PULMONARY 2020-12-15 22:29:38 Paul Bean NPI :[id number] ANGIOGRAM POCT GLUCOSE (AUTOMATED) 2020-12-15 19:26:00 Harrison, Premal G NPI :[id number] POCT GLUCOSE (AUTOMATED) 2020-12-15 15:13:00 Harrison, Premal G NPI :[id number] HB ECG ROUTINE & RHYTHM 2020-12-15 14:25:27 Cailin Romo STRIP MAGNESIUM 2020-12-15 12:01:00 Paul Bean NPI:18 [id number] BASIC METABOLIC PANEL (NA, 2020-12-15 12:01:00 Paul Bean K, CL, CO2, GLUCOSE, BUN, CREATININE, CA) CBC WITH DIFF 2020-12-15 12:01:00 Paul Bean NPI:18 [id number] POCT GLUCOSE (AUTOMATED) 2020-12-15 03:57:00 Harrison, Premal G NPI :[id number] POCT GLUCOSE (AUTOMATED) 2020-12-14 23:31:00 Harrison, Premal G NPI :[id number] POCT GLUCOSE (AUTOMATED) 2020-12-14 19:08:00 Harrison, Premal G NPI :[id number] POCT GLUCOSE (AUTOMATED) 2020-12-14 15:11:00 Harrison, Premal G NPI :[id number] POCT GLUCOSE (AUTOMATED) 2020-12-14 02:36:00 Harrison, Premal G NPI :[id number] POCT GLUCOSE (AUTOMATED) 2020-12-13 23:32:00 Harrison, Premal G NPI :[id number] POCT GLUCOSE (AUTOMATED) 2020-12-13 18:08:00 Harrison, Premal G NPI :[id number] BASIC METABOLIC PANEL (NA, 2020-12-13 15:39:00 VikasPaul K, CL, CO2, GLUCOSE, BUN, CREATININE, CA) CBC WITH DIFF 2020-12-13 15:39:00 Vikas Paul Shaver Kaley NPI:18 [id number] POCT GLUCOSE (AUTOMATED) 2020-12-13 14:06:00 Harrison, Premal G NPI :[id number] POCT GLUCOSE (AUTOMATED) 2020-12-13 03:07:00 Harrison, Premal G NPI :[id number] POCT GLUCOSE (AUTOMATED) 2020-12-12 23:52:00 Harrison, Premal G NPI :[id number] POCT GLUCOSE (AUTOMATED) 2020-12-12 20:28:00 Harrison, Premal G NPI :[id number] POCT GLUCOSE (AUTOMATED) 2020-12-12 19:14:00 Harrison, Premal G NPI :[id number] POCT GLUCOSE (AUTOMATED) 2020-12-12 14:33:00 Harrison, Premal G NPI :[id number] MAGNESIUM 2020-12-12 08:58:00 Paul Bean NPI:18 [id number] BASIC METABOLIC PANEL (NA, 2020-12-12 08:58:00 Darnell Beanahclotilde Roche K, CL, CO2, GLUCOSE, BUN, CREATININE, CA) CBC WITH DIFF 2020-12-12 08:58:00 Paul Bean NPI:18 [id number] US ABDOMEN LIMITED 2020-12-12 06:32:26 Paul Bean NPI :[id number] POCT GLUCOSE (AUTOMATED) 2020-12-12 03:40:00 Harrison, Premal G NPI :[id number] POCT GLUCOSE (AUTOMATED) 2020-12-12 00:06:00 Harrison, Premal G NPI :[id number] XR HIPS 3 VW LEFT 2020-12-11 20:20:00 Paul Bean HB ECG ROUTINE & RHYTHM 2020-12-11 20:04:06 Cailin Romo STRIP VITAMIN B6, PLASMA 2020-12-11 19:17:00 Paul Bean NPI :[id number] POCT GLUCOSE (AUTOMATED) 2020-12-11 19:06:00 Harrison, Premal G NPI :[id number] CREATINE KINASE 2020-12-11 18:22:00 Clarisse Hannon NPI:[id number] VITAMIN B12, LEVEL 2020-12-11 18:22:00 Paul Bean NPI :[id number] FOLATE 2020-12-11 18:22:00 Paul Bean NPI:18 [id number] THYROID STIMULATING HORMONE 2020-12-11 18:22:00 Cailin Romo PROCALCITONIN 2020-12-11 18:22:00 Paul Bean NPI:18 [id number] VITAMIN B1 (THIAMINE), 2020-12-11 18:22:00 Paul Bean WHOLE BLOOD CT HEAD WO CONTRAST 2020-12-11 14:07:35 Sweetie Stout NPI:[id number] URINALYSIS 2020-12-11 13:44:00 Jessie Lacey NPI:[id number] URINE CULTURE 2020-12-11 13:44:00 Jessie Lacey NPI:[id number] COVID-19 (ID NOW RAPID 2020-12-11 12:31:00 Jessie Lacey NPI:1 [id number] TESTING) LAB ONLY COVID 2020-12-11 12:31:00 Jessie Lacey NPI:[id number] INTERPRETATION XR CHEST 1 VW 2020-12-11 12:07:24 Jessie Lacey NPI:[id number] BLOOD CULTURE SCREEN 2020-12-11 12:02:00 Jessie Lacey NPI:[id number] MAGNESIUM 2020-12-11 12:02:00 Paul Bean NPI:18 [id number] FERRITIN SERUM 2020-12-11 12:02:00 Paul Bean NPI:18 [id number] COMP. METABOLIC PANEL 2020-12-11 12:02:00 Jessie Lacey NPI:18 [id number] ([id number]) CBC WITH DIFF 2020-12-11 12:02:00 Jessie Lacey NPI:[id number] LACTIC ACID WHOLE BLOOD 2020-12-11 12:02:00 Jessie Lacey BLOOD CULTURE SCREEN 2020-12-11 11:42:00 Jessie Lacey NPI:[id number] EMERGENCY SERVICES 2020-12-11 06:01:00 Doctor Unassigned, No NPI :[id number] AGREEMENTS AND Name AUTHORIZATIONS HOSPITAL ADMISSION 2020-12-11 06:01:00 Doctor Unassigned, No NPI :[id number] Name HOME HEALTH - OTHER 2020-11-11 06:01:00 Doctor Unassigned, No CHEMISTRY FACULTY MEMBER I:[id number] Name HOME HEALTH - OTHER 2020-10-30 06:01:00 Doctor Unassigned, No CHEMISTRY FACULTY MEMBER I:[id number] Name EXTERNAL PROVIDER RECORDS 2020-09-01 06:01:00 Doctor Unassigned, No Name POCT GLUCOSE (AUTOMATED) 2020-08-23 18:09:00 Deepak Washington POCT GLUCOSE (AUTOMATED) 2020-08-23 14:14:00 Deepak Washington MAGNESIUM 2020-08-23 11:18:00 Haily Bui NPI:[id number] BASIC METABOLIC PANEL (NA, 2020-08-23 11:18:00 Haily Bui PI:[id number] K, CL, CO2, GLUCOSE, BUN, CREATININE, CA) CBC WITH DIFF 2020-08-23 11:18:00 Haily Bui NPI:[id number] POCT GLUCOSE (AUTOMATED) 2020-08-23 10:21:00 Deepak Washington ool POCT GLUCOSE (AUTOMATED) 2020-08-23 05:55:00 WashingtonDeepak braswell Bat ool POCT GLUCOSE (AUTOMATED) 2020-08-23 03:00:00 Deepak Washington ool POCT GLUCOSE (AUTOMATED) 2020-08-22 23:38:00 Deepak Washington ool POCT GLUCOSE (AUTOMATED) 2020-08-22 19:04:00 Deepak Washingtonol POCT GLUCOSE (AUTOMATED) 2020-08-22 13:49:00 Deepak Washingtonol MAGNESIUM 2020-08-22 10:10:00 Haily Bui NPI:[id number] HEPATIC FUNCTION PANEL 2020-08-22 10:10:00 Aguila Melchor NPI :[id number] ([id number]) (ALB,T.PRO,BILI T,BU/BC,ALT,AST,ALK PHOS) BASIC METABOLIC PANEL (NA, 2020-08-22 10:10:00 Haily Bui PI:[id number] K, CL, CO2, GLUCOSE, BUN, CREATININE, CA) LIPID PANEL ([id number])(TOTAL 2020-08-22 10:10:00 Haily Bui CHEMISTRY FACULTY MEMBER I:[id number] CHOLESTEROL, TRIGLYCERIDES, HDL) CBC WITH DIFF 2020-08-22 10:10:00 Haily Bui NPI:[id number] POCT GLUCOSE (AUTOMATED) 2020-08-22 10:10:00 Deepak Washingtonol POCT GLUCOSE (AUTOMATED) 2020-08-22 07:13:00 Deepak Washingtonol POCT GLUCOSE (AUTOMATED) 2020-08-22 02:24:00 Deepak Washington ool POCT GLUCOSE (AUTOMATED) 2020-08-21 23:40:00 Deepak Washingtonol POCT GLUCOSE (AUTOMATED) 2020-08-21 18:10:00 Deepak Washington ool POCT GLUCOSE (AUTOMATED) 2020-08-21 13:39:00 Deepak Washington ool ETHANOL 2020-08-21 12:35:00 Jos Quiroz NPI:[id number] ACTIVATED PARTIAL THRMPLAS 2020-08-21 12:35:00 Deepak Washington atool CHI GALV ONLY - SYPHILIS 2020-08-21 12:35:00 Deepak Washingtonool IGG/IGM LACTATE DEHYDROGENASE 2020-08-21 10:09:00 RamyaHaily NPI:[id number] GALV/CLC ONLY - URINE DRUG 2020-08-21 10:09:00 Jos Quiroz PI:[id number] (IMMUNOASSAY) - 4 ER PANEL URINALYSIS 2020-08-21 10:09:00 Haily Bui NPI:[id number] URINE CULTURE 2020-08-21 10:09:00 Haily Bui NPI:[id number] PROCALCITONIN 2020-08-21 10:09:00 Haily Bui NPI:[id number] POCT GLUCOSE (AUTOMATED) 2020-08-21 09:41:00 Deepak Washington ool PROTHROMBIN TIME / INR 2020-08-21 08:32:00 Haily Bui NPI:1 [id number] ACTIVATED PARTIAL THRMPLAS 2020-08-21 08:32:00 Haily Bui PI:[id number] CHI C-REACTIVE PROTEIN 2020-08-21 08:31:00 Haily Bui NPI:[id number] HEPATIC FUNCTION PANEL 2020-08-21 08:31:00 Ramya Haily NPI:1 [id number] ([id number]) (ALB,T.PRO,BILI T,BU/BC,ALT,AST,ALK PHOS) BASIC METABOLIC PANEL (NA, 2020-08-21 08:31:00 Haily Bui PI:[id number] K, CL, CO2, GLUCOSE, BUN, CREATININE, CA) SEDIMENTATION RATE 2020-08-21 08:31:00 Haily Bui NPI:[id number] CBC WITH DIFF 2020-08-21 08:31:00 Haily Bui NPI:[id number] GLYCOSYLATED HEMOGLOBIN 2020-08-21 08:31:00 Haily Bui (A1C) HIV 1/2 AG-AB WITH REFLEX 2020-08-21 08:31:00 Deepak Washington Ba tool COVID-19 (ID NOW RAPID 2020-08-21 08:20:00 Haily Bui NPI:1 [id number] TESTING) LAB ONLY COVID 2020-08-21 08:20:00 Haily Bui NPI:[id number] INTERPRETATION Encounters Start End Encounter Admission Attending Care Care Encounter Source Date/Time Date/Time Type Type Clinicians Facility Department ID 2020-08-21 Inpatient U ST[facility]ANIA [facility] [id number] NPI:[id number] 01:07:00 DEEPAK [id number] 2021-08-22 Emergency X [facility] ERT [id number] NPI:183 06:21:00 08:02:00 SWEETIE [id number] 2021-08-22 2021-08-22 Emergency [facility] [id number] NPI:[id number] 06:21:00 08:02:00 Sweetie LOTT [id number] KELVIN [id number] [place] [id number] 2021-08-09 2021-08-09 Outpatient [facility] [id number] [facility] 10:27:03 10:27:03 ADRIANA lopez of Medicin e 2020-12-28 2020-12-28 Telephone [facility] [id number] 00:00:00 00:00:00 Calvin H PRIMARY [id number] CARE [id number] [facility] [id number] 2020-12-28 2020-12-28 [place] [facility] FACILITY 1.2.840.114 [id number] NPI:183 00:00:00 00:00:00 Calvin [facility] PRIMARY 350.1.13.10 13 [id number] CARE 4.2.7.2.686 PAVILLION [id number] 2020-12-19 2020-12-19 Transition Lorraine Ronaldosteven 1.2.840.114 [id number] 00:00:00 00:00:00 of Care Ruchi Braswell 350.1.13.10 [place] 4.2.7.2.686 [id number] 403 2020-12-19 2020-12-19 Transition Tuan Peters 1.2.840.114 823 21229 NPI:183 00:00:00 00:00:00 of Care Ruchi Braswell 350.1.13.10 13 25432 [place] 4.2.7.2.686 [id number] 403 2020-12-11 2020-12-17 [facility] Jessie Lacey 1.2.840.1 14 [id number] 05:11:00 16:00:00 Encounter Harrison, Premal G Natty 350.1.13.10 [facility] 4.2.7.2.686 [id number] 096 2020-12-11 2020-12-17 [facility] Jessie Lacey 1.2.840.1 14 [id number] NPI:183 05:11:00 16:00:00 Encounter Harrison, Premal G Natty 350.1.13.10 [id number] [facility] 4.2.7.2.686 [id number] 096 2020-12-11 2020-12-11 Emergency X [facility] ERT [id number] NPI:183 05:11:00 05:11:00 JSESIE [id number] 1 2020-11-16 2020-11-16 Emergency X , [facility] ERT [id number] NPI:183 09:31:00 09:31:00 JESSIE [id number] 1 2020-11-11 2020-11-11 Orders Doctor BASILIA 1.2.840.114 [id number] 00:00:00 00:00:00 Only Unassigned, NATTY 350.1.13.10 [facility] 4.2.7.2.686 [id number] 009 2020-11-11 2020-11-11 Orders Doctor BASILIA 1.2.840.114 [id number] NPI:183 00:00:00 00:00:00 Only Unassigned, NATTY 350.1.13.10 [id number] [facility] 4.2.7.2.686 [id number] 009 2020-11-07 2020-11-07 Telephone [facility] 1.2.201.978 1411 1214 00:00:00 00:00:00 Angi Lott 350.1.13.10 [place] 4.2.7.2.686 Professio [id number] [address] 2020-11-07 2020-11-07 Telephone [facility] 1.2.255.633 [id number] 1214 NPI:183 00:00:00 00:00:00 Angi Lott 350.1.13.10 [id number] [place] 4.2.7.2.686 Professio [id number] [address] 2020-10-30 2020-10-30 Orders Doctor BASILIA 1.2.840.114 [id number] 00:00:00 00:00:00 Only Unassigned, NATTY 350.1.13.10 [facility] 4.2.7.2.686 [id number] 009 2020-10-30 2020-10-30 Orders Doctor BASILIA 1.2.840.114 [id number] NPI:183 00:00:00 00:00:00 Only Unassigned, NATTY 350.1.13.10 [id number] [facility] 4.2.7.2.686 [id number] 009 2020-09-26 2020-09-26 Telephone Eliot [facility] 1.2.840.114 [id number] 00:00:00 00:00:00 Jl [facility] 350.1.13.10 CLINICS 4.2.7.2.686 [id number] 027 2020-09-26 2020-09-26 Telephone Eliot [facility] 1.2.840.114 80 [id number] NPI:183 00:00:00 00:00:00 [facility] HEALTH 350.1.13.10 1 [id number] CLINICS 4.2.7.2.686 [id number] 027 2020-09-01 2020-09-01 Orders Doctor CUI 1.2.840.114 [id number] 00:00:00 00:00:00 Only Unassigned, NATTY 350.1.13.10 [facility] 4.2.7.2.686 [id number] 009 2020-09-01 2020-09-01 Orders Doctor CUI 1.2.840.114 [id number] NPI:183 00:00:00 00:00:00 Only Unassigned, NATTY 350.1.13.10 [id number] [facility] 4.2.7.2.686 [id number] 009 2020-08-25 2020-08-25 Transition Tuan Peters 1.2.840.114 795 [id number] 00:00:00 00:00:00 of Care Ruchi Braswell 350.1.13.10 [place] 4.2.7.2.686 [id number] 403 2020-08-25 2020-08-25 Transition Tuan Peters 1.2.840.114 795 91214 NPI:183 00:00:00 00:00:00 of Care Ruchi Braswell 350.1.13.10 13 56899 [place] 4.2.7.2.686 [id number] 403 2020-08-21 2020-08-23 [facility] Ayleen [place] 1.2.840.114 794 [id number] 01:07:00 18:35:00 Encounter Deepak Amaya 350.1.13.10 [facility] 4.2.7.2.686 [id number] 095 2020-08-21 2020-08-23 [facility] Deepak [place] 1. 2.840.114 [id number] NPI:183 01:07:00 18:35:00 Mukul Arcos 350.1.13. 10 [id number] [facility] 4.2.7.2.686 [id number] 095 Results Test Description Test Time Test Comments Results Result Comments Source POCT GLUCOSE (AUTOMATED) 2020-12-17 15:43:35 Test Item Value Reference Range Interpretation Comme nts POCT GLU (test code = 7886314818) 129 mg/dL 70-110 H Lab Interpretation (test code = 23829-8) Abnormal NPI:[id number] METABOLIC PANEL (NA, K, CL, CO2, GLUCOSE, BUN, CREATININE, CA)2020-12-17 11:45:07 Test Item Value Reference Range Interpretation Comments NA (test code = 137 mmol/L 135-145 1189403381) K (test code = 3.5 mmol/L 3.5-5.0 9415989919) CL (test code = 103 mmol/L 98-108 5010643805) CO2 TOTAL (test code = 26 mmol/L 23-31 7909750454) AGAP (test code = 2-16 1814626686) BUN (test code = 11 mg/dL 7-23 0528328816) GLUCOSE (test code = 175 mg/dL 70-110 H 2055268478) CREATININE (test code = 0.62 mg/dL 0.60-1.25 2486500174) CALCIUM (test code = 9.0 mg/dL 8.6-10.6 1665209824) eGFR Calculation mL/min/1.73m2 (Non-) (test code = 4371646224) eGFR Calculation mL/min/1.73m2 () (test code = 2599380267) JAMES (test code = JAMES) Association of [...] tests). Lab Interpretation Abnormal (test code = 48790-0) NPI:[id number] WITH [id number] 11:07:27 Test Item Value Reference Range Interpretation Comments WBC (test code = See_Comment H [Automated 2025-2) message] The sy stem which generated this result transmitted reference range : 4.20 - 10.70 10*3/?L. The reference range was not used to interpret this result as normal/abnormal . RBC (test code = See_Comment [Automated 429-8) message] The sy stem which generated this [...] RDW-SD (test code = 45.2 fL 38.5-51.6 91547-4) RDW-CV (test code = 16.9 % 12.1-15.4 H 788-0) PLT (test code = See_Comment H [Automated 777-3) message] The sy stem which generated this result transmitted reference range : 150 - 328 10*3/ ?L. The reference r torito was not used to interpret this result as normal/abnormal . MPV (test code = 8.1 fL 9.8-13.0 L 19672-2) NRBC/100 WBC (test See_Comment [Automat ed code = 9685321403) message] The system which generated this result transmitted reference range : 0.0 - 10.0 /100 WBCs. The refer ence range was not u sed to interpret th is result as normal/abnormal . NRBC x10^3 (test code <0.01 See_Comment [Auto mated = 7271643845) message] The s ystem which generated this result transmitted reference range : 10*3/?L. The reference range was not used to interpret this result as normal/abnormal . GRAN MAT (NEUT) % 72.8 % (test code = 770-8) IMM GRAN % (test code 0.60 % = 0657350494) LYMPH % (test code = 18.4 % 736-9) MONO % (test code = 5.7 % 5905-5) EOS % (test code = 1.8 % 713-8) BASO % (test code = 0.7 % 706-2) GRAN MAT x10^3(ANC) 8.23 10*3/uL 1.99-6.95 H (test code = 6392994533) IMM GRAN x10^3 (test 0.07 10*3/uL 0.00-0.06 H code = 6701570431) LYMPH x10^3 (test code 2.08 10*3/uL 1.09-3.23 = 731-0) MONO x10^3 (test code 0.65 10*3/uL 0.36-1.02 = 742-7) EOS x10^3 (test code = 0.20 10*3/uL 0.06-0.53 711-2) BASO x10^3 (test code 0.08 10*3/uL 0.01-0.09 = 704-7) Lab Interpretation Abnormal (test code = 17161-3) NPI:[id number] GLUCOSE (AUTOMATED)2020-12-17 06:03:38 Test Item Value Reference Range Interpretation Comments POCT GLU (test code = 8919009245) 75 mg/dL 70-110 Lab Interpretation (test code = Normal 84612-5) NPI:[id number] B6, [id number] 00:01:00 Test Item Value Reference Range Interpretation Comments VIT B6 (test code = 13.1 nmol/L 20.0-125.0 L INTERPRE TIVE 37897-2) INFORMATION: Vi tamin B6 (Pyridoxal 5-Phosphate) Pyridoxal 5'-phosphate me asured in a specimen collected follo wing an 8-hour or overnight fast accurately clara cates vitamin B6 nutritional sta tus. Non-fasting spe cimen concentration reflects recent vitamin intake. This test was develo ped and its perform ance characteristics determined by [facility]. I t has not been cleare d or approved by the [place] Food and Drug Administration. This test was perfor med in a CLIA certifie d laboratory and is intended for cl inical purposes.Perfor med By: [employer] [place] [address] [id number] Director: Namrata Klein MD Lab Interpretation Abnormal (test code = 62009-3) NPI:[id number] TIBIA FIBULA 2 VW [id number] 23:57:09 Tricompartmental knee joint osteoarthrosis.XR TIBIA FIBULA [...] No acute fracture or dislocation.IMPRESSIONTricompartmental knee joint osteoarthrosis.NPI:[id number] GLUCOSE (AUTOMATED)2020-12-16 23:27:00 Test Item Value Reference Range Interpretation Comments POCT GLU (test code = 2952131028) 114 mg/dL 70-110 H Lab Interpretation (test code = Abnormal 12775-0) NPI:[id number] GLUCOSE (AUTOMATED)2020-12-16 20:12:00 Test Item Value Reference Range Interpretation Comments POCT GLU (test code = 7256457516) 105 mg/dL 70-110 Lab Interpretation (test code = Normal 93726-8) NPI:[id number] GLUCOSE (AUTOMATED)2020-12-16 14:44:00 Test Item Value Reference Range Interpretation Comments POCT GLU (test code = 8211560226) 153 mg/dL 70-110 H Lab Interpretation (test code = Abnormal 85011-3) NPI:[id number] METABOLIC PANEL (NA, K, CL, CO2, GLUCOSE, BUN, CREATININE, CA)2020-12-16 14:23:00 Test Item Value Reference Range Interpretation Comments NA (test code = 138 mmol/L 135-145 9534614456) K (test code = 3.4 mmol/L 3.5-5.0 L 6575322727) CL (test code = 100 mmol/L 98-108 4372549314) CO2 TOTAL (test code = 31 mmol/L 23-31 1353095711) AGAP (test code = 2-16 6630481421) BUN (test code = 11 mg/dL 7-23 2614499231) GLUCOSE (test code = 162 mg/dL 70-110 H 9571851793) CREATININE (test code = 0.64 mg/dL 0.60-1.25 0575195400) CALCIUM (test code = 8.9 mg/dL 8.6-10.6 2775278607) eGFR Calculation mL/min/1.73m2 (Non-) (test code = 8522630718) eGFR Calculation mL/min/1.73m2 () (test code = 6930948445) JAMES (test code = JAMES) Association of [...] tests). Lab Interpretation Abnormal (test code = 67516-0) NPI:[id number] WITH [id number] 14:05:00 Test Item Value Reference Range Interpretation Comments WBC (test code = See_Comment H [Automated 5044-2) message] The sy stem which generated this result transmitted reference range : 4.20 - 10.70 10*3/?L. The reference range was not used to interpret this result as normal/abnormal . RBC (test code = See_Comment [Automated 821-8) message] The sy stem which generated this [...] RDW-SD (test code = 45.4 fL 38.5-51.6 59447-3) RDW-CV (test code = 17.0 % 12.1-15.4 H 788-0) PLT (test code = See_Comment H [Automated 777-3) message] The sy stem which generated this result transmitted reference range : 150 - 328 10*3/ ?L. The reference r torito was not used to interpret this result as normal/abnormal . MPV (test code = 8.0 fL 9.8-13.0 L 86663-8) NRBC/100 WBC (test See_Comment [Automat ed code = 4805014261) message] The system which generated this result transmitted reference range : 0.0 - 10.0 /100 WBCs. The refer ence range was not u sed to interpret th is result as normal/abnormal . NRBC x10^3 (test code <0.01 See_Comment [Auto mated = 0403278959) message] The s ystem which generated this result transmitted reference range : 10*3/?L. The reference range was not used to interpret this result as normal/abnormal . GRAN MAT (NEUT) % 70.0 % (test code = 770-8) IMM GRAN % (test code 0.70 % = 2682953573) LYMPH % (test code = 20.5 % 736-9) MONO % (test code = 7.1 % 5905-5) EOS % (test code = 1.0 % 713-8) BASO % (test code = 0.7 % 706-2) GRAN MAT x10^3(ANC) 9.44 10*3/uL 1.99-6.95 H (test code = 9086661379) IMM GRAN x10^3 (test 0.09 10*3/uL 0.00-0.06 H code = 8055213043) LYMPH x10^3 (test code 2.76 10*3/uL 1.09-3.23 = 731-0) MONO x10^3 (test code 0.96 10*3/uL 0.36-1.02 = 742-7) EOS x10^3 (test code = 0.13 10*3/uL 0.06-0.53 711-2) BASO x10^3 (test code 0.10 10*3/uL 0.01-0.09 H = 704-7) Lab Interpretation Abnormal (test code = 41439-4) NPI:[id number] Culture - Peripheral # [id number] 13:01:00 Test Item Value Reference Range Interpretation Comments Blood Culture-Aerobic No organisms No growth Previo us (test code = 34217-1) isolated prelim inary verified result was Culture In Progress on 12/11/2020 at 100 1 CSTPrevious preliminary verified result was No growth a t 24 hours on 12/12/2020 at 070 1 CSTPrevious preliminary verified result was No growth a t 48 hours on 12/13/2020 at 070 1 CSTPrevious preliminary verified result was No growth a t 72 hours on 12/14/2020 at 070 1 [employer] Blood No organisms No growth Previous Culture-Anaerobic isolated preliminar y (test code = 41099-9) verifi ed result was Culture In Progress on 12/11/2020 at 100 1 CSTPrevious preliminary verified result was No growth a t 24 hours on 12/12/2020 at 070 1 CSTPrevious preliminary verified result was No growth a t 48 hours on 12/13/2020 at 070 1 CSTPrevious preliminary verified result was No growth a t 72 hours on 12/14/2020 at 070 1 [employer] Lab Interpretation Normal (test code = 31559-8) NPI:[id number] Culture - Peripheral # [id number] 13:01:00 Test Item Value Reference Range Interpretation Comments Blood Culture-Aerobic No organisms No growth Previo us (test code = 15441-1) isolated prelim inary verified result was Culture In Progress on 12/11/2020 at 100 1 CSTPrevious preliminary verified result was No growth a t 24 hours on 12/12/2020 at 070 1 CSTPrevious preliminary verified result was No growth a t 48 hours on 12/13/2020 at 070 1 CSTPrevious preliminary verified result was No growth a t 72 hours on 12/14/2020 at 070 1 [employer] Blood No organisms No growth Previous Culture-Anaerobic isolated preliminar y (test code = 39688-2) verifi ed result was Culture In Progress on 12/11/2020 at 100 1 CSTPrevious preliminary verified result was No growth a t 24 hours on 12/12/2020 at 070 1 CSTPrevious preliminary verified result was No growth a t 48 hours on 12/13/2020 at 070 1 CSTPrevious preliminary verified result was No growth a t 72 hours on 12/14/2020 at 070 1 [employer] Lab Interpretation Normal (test code = 87654-2) NPI:[id number] GLUCOSE (AUTOMATED)2020-12-16 04:01:00 Test Item Value Reference Range Interpretation Comments POCT GLU (test code = 9912266724) 156 mg/dL 70-110 H Lab Interpretation (test code = Abnormal 07047-5) NPI:[id number] GLUCOSE (AUTOMATED)2020-12-16 00:24:00 Test Item Value Reference Range Interpretation Comments POCT GLU (test code = 3512458163) 115 mg/dL 70-110 H Lab Interpretation (test code = Abnormal 56733-3) NPI:[id number] CHEST PULMONARY [id number] 23:34:55No pulmonary emboli. No interval change in [...] No pneumothorax. LYMPH NODES: No thoracic adenopathy. MEDIASTINUM/ LOWER NECK: ?No mediastinal mass is seen [...] of intra and extrahepatic biliary du ctal dilatation.NPI:[id number] GLUCOSE (AUTOMATED)2020-12-15 19:28:00 Test Item Value Reference Range Interpretation Comments POCT GLU (test code = 0491454444) 140 mg/dL 70-110 H Lab Interpretation (test code = Abnormal 84226-7) NPI:[id number] 15:26:00 Test Item Value Reference Range Interpretation Comments MAGNESIUM (test code = 8489624037) 2.2 mg/dL 1.7-2.4 Lab Interpretation (test code = Normal 99248-4) NPI:[id number] GLUCOSE (AUTOMATED)2020-12-15 15:15:00 Test Item Value Reference Range Interpretation Comments POCT GLU (test code = 9132515624) 181 mg/dL 70-110 H Lab Interpretation (test code = Abnormal 83640-3) NPI:[id number] METABOLIC PANEL (NA, K, CL, CO2, GLUCOSE, BUN, CREATININE, CA)2020-12-15 13:07:00 Test Item Value Reference Range Interpretation Comments NA (test code = 136 mmol/L 135-145 3500062600) K (test code = 3.6 mmol/L 3.5-5.0 2680194106) CL (test code = 96 mmol/L 98-108 L 6229663416) CO2 TOTAL (test code = 29 mmol/L 23-31 8111821720) AGAP (test code = 2-16 2824153034) BUN (test code = 12 mg/dL 7-23 5558138554) GLUCOSE (test code = 183 mg/dL 70-110 H 2727540349) CREATININE (test code = 0.70 mg/dL 0.60-1.25 5810919682) CALCIUM (test code = 9.2 mg/dL 8.6-10.6 2446063670) eGFR Calculation mL/min/1.73m2 (Non-) (test code = 3248630397) eGFR Calculation mL/min/1.73m2 () (test code = 1541319627) JAMES (test code = JAMES) Association of [...] tests). Lab Interpretation Abnormal (test code = 68232-9) NPI:[id number] WITH [id number] 12:32:00 Test Item Value Reference Range Interpretation [...] RDW-SD (test code = 44.4 fL 38.5-51.6 92037-4) RDW-CV (test code = 17.7 % 12.1-15.4 H 788-0) PLT (test code = See_Comment H [Automated 777-3) message] The system which generated this result transmit ronan reference range : 150 - 328 10*3/ ?L. The reference range was not u sed to interpret th is result as normal/abnormal . MPV (test code = 8.1 fL 9.8-13.0 L 61628-4) NRBC/100 WBC (test See_Comment [Automat ed code = 2346882095) message] The system which generated this result transmit ronan reference range : 0.0 - 10.0 /100 WBCs. The reference range was not used to interpret this result as normal/abnormal . NRBC x10^3 (test code <0.01 See_Comment [Auto mated = 4662758036) message] The system which generated this result transmit ronan reference range : 10*3/?L. The reference range was not used to interpret this result as normal/abnormal . GRAN MAT (NEUT) % 74.5 % (test code = 770-8) IMM GRAN % (test code 0.70 % = 3662530827) LYMPH % (test code = 17.4 % 736-9) MONO % (test code = 6.8 % 5905-5) EOS % (test code = 0.2 % 713-8) BASO % (test code = 0.4 % 706-2) GRAN MAT x10^3(ANC) 11.99 10*3/uL 1.99-6.95 H (test code = 9171820558) IMM GRAN x10^3 (test 0.11 10*3/uL 0.00-0.06 H code = 2856287368) LYMPH x10^3 (test code 2.80 10*3/uL 1.09-3.23 = 731-0) MONO x10^3 (test code 1.10 10*3/uL 0.36-1.02 H = 742-7) EOS x10^3 (test code = 0.03 10*3/uL 0.06-0.53 L 711-2) BASO x10^3 (test code 0.06 10*3/uL 0.01-0.09 = 704-7) Lab Interpretation Abnormal (test code = 75128-7) NPI:[id number] GLUCOSE (AUTOMATED)2020-12-15 04:16:00 Test Item Value Reference Range Interpretation Comments POCT GLU (test code = 7959568525) 200 mg/dL 70-110 H Lab Interpretation (test code = Abnormal 35923-7) NPI:[id number] B1 (THIAMINE), WHOLE [id number] 00:30:00 Test Item Value Reference Range Interpretation Comments Vitamin B1, Whole 136 nmol/L 70-180 INTERPRETI VE INFORMATION: Blood (test code = Vitamin B 1, Whole Blood 90268-8) This assay júnior ures the concentration o f thiamine diphosphate (TD P), the primary active form of vitamin B1. Nick roximately 90 percent of v itamin B1 present in whol e blood is TDP. Thiamine a nd thiamine monoph osphate, which comprise the remaining 10 pe rcent, are not measured. T his test was developed a nd its performance characteristics determined by [facility]. I t has not been cleared or approved by the [place] Food and Drug Administration. This test was performed i n a CLIA certified labor atory and is intended for clinical purposes.Perfor med By: DEE Perdomoi [address] [place] [address] [id number] aboratory Director: Namrata Klein MD NPI:[id number] GLUCOSE (AUTOMATED)2020-12-14 23:35:00 Test Item Value Reference Range Interpretation Comments POCT GLU (test code = 3351444420) 151 mg/dL 70-110 H Lab Interpretation (test code = Abnormal 70819-9) NPI:[id number] GLUCOSE (AUTOMATED)2020-12-14 19:19:00 Test Item Value Reference Range Interpretation Comments POCT GLU (test code = 9539809985) 193 mg/dL 70-110 H Lab Interpretation (test code = Abnormal 46547-7) NPI:[id number] GLUCOSE (AUTOMATED)2020-12-14 15:22:00 Test Item Value Reference Range Interpretation Comments POCT GLU (test code = 8372755496) 221 mg/dL 70-110 H Lab Interpretation (test code = Abnormal 54656-7) NPI:[id number] GLUCOSE (AUTOMATED)2020-12-14 02:37:00 Test Item Value Reference Range Interpretation Comments POCT GLU (test code = 0036414212) 210 mg/dL 70-110 H Lab Interpretation (test code = Abnormal 94110-7) NPI:[id number] GLUCOSE (AUTOMATED)2020-12-13 23:33:00 Test Item Value Reference Range Interpretation Comments POCT GLU (test code = 7503763470) 182 mg/dL 70-110 H Lab Interpretation (test code = Abnormal 48828-5) NPI:[id number] GLUCOSE (AUTOMATED)2020-12-13 18:09:00 Test Item Value Reference Range Interpretation Comments POCT GLU (test code = 9611007024) 150 mg/dL 70-110 H Lab Interpretation (test code = Abnormal 99302-5) NPI:[id number] METABOLIC PANEL (NA, K, CL, CO2, GLUCOSE, BUN, CREATININE, CA)2020-12-13 16:27:00 Test Item Value Reference Range Interpretation Comments NA (test code = 136 mmol/L 135-145 3152841922) K (test code = 3.7 mmol/L 3.5-5.0 2234903932) CL (test code = 96 mmol/L 98-108 L 9855817234) CO2 TOTAL (test code = 29 mmol/L 23-31 3387371878) AGAP (test code = 2-16 6950555898) BUN (test code = 6 mg/dL 7-23 L 6257880145) GLUCOSE (test code = 212 mg/dL 70-110 H 7506167784) CREATININE (test code = 0.61 mg/dL 0.60-1.25 4980535602) CALCIUM (test code = 9.5 mg/dL 8.6-10.6 1473290369) eGFR Calculation mL/min/1.73m2 (Non-) (test code = 3007052942) eGFR Calculation mL/min/1.73m2 () (test code = 1587321043) JAMES (test code = JAMES) Association of [...] tests). Lab Interpretation Abnormal (test code = 73677-0) NPI:[id number] WITH [id number] 16:10:00 Test Item Value Reference Range Interpretation Comments WBC (test code = See_Comment H [Automated 6690-2) message] The sy stem which generated this result transmitted reference range : 4.20 - 10.70 10*3/?L. The reference range was not used to interpret this result as normal/abnormal . RBC (test code = See_Comment H [Automated 789-8) message] The sy stem which [...] RDW-SD (test code = 43.3 fL 38.5-51.6 23928-9) RDW-CV (test code = 16.2 % 12.1-15.4 H 788-0) PLT (test code = See_Comment H [Automated 777-3) message] The sy stem which generated this result transmitted reference range : 150 - 328 10*3/ ?L. The reference r torito was not used to interpret this result as normal/abnormal . MPV (test code = 8.2 fL 9.8-13.0 L 85641-5) NRBC/100 WBC (test See_Comment [Automat ed code = 0769557885) message] The system which generated this result transmitted reference range : 0.0 - 10.0 /100 WBCs. The refer ence range was not u sed to interpret th is result as normal/abnormal . NRBC x10^3 (test code <0.01 See_Comment [Auto mated = 9342530693) message] The s [employer] which generated this result transmitted reference range : 10*3/?L. The reference range was not used to interpret this result as normal/abnormal . GRAN MAT (NEUT) % 86.2 % (test code = 770-8) IMM GRAN % (test code 0.70 % = 4597181524) LYMPH % (test code = 10.2 % 736-9) MONO % (test code = 2.5 % 5905-5) EOS % (test code = 0.1 % 713-8) BASO % (test code = 0.3 % 706-2) GRAN MAT x10^3(ANC) 9.61 10*3/uL 1.99-6.95 H (test code = 1528839830) IMM GRAN x10^3 (test 0.08 10*3/uL 0.00-0.06 H code = 7108212272) LYMPH x10^3 (test code 1.14 10*3/uL 1.09-3.23 = 731-0) MONO x10^3 (test code 0.28 10*3/uL 0.36-1.02 L = 742-7) EOS x10^3 (test code = <0.03 0.06-0.53 L 711-2) BASO x10^3 (test code 0.03 10*3/uL 0.01-0.09 = 704-7) Lab Interpretation Abnormal (test code = 21371-2) NPI:[id number] GLUCOSE (AUTOMATED)2020-12-13 14:16:00 Test Item Value Reference Range Interpretation Comments POCT GLU (test code = 8581518161) 236 mg/dL 70-110 H Lab Interpretation (test code = Abnormal 07905-9) NPI:[id number] ONLY COVID [id number] 04:58:00COVID DMT InterpretationInterpretation/Recommendations: Molecular NAAT Tests for [...] COVID-19 testing the patient has had at [facility], including molecular NAAT testing (more commonly known as PCR testing and Rapid ID Now testing) and antibody testing. It does not take into account any testing that a patient has had outside of the [facility] medical record. [facility] LAB[facility] SERVICESCOVID Resu [id number] Rapid ID NOW (no units) ? ? Date ? Value ? 12/11/2020 ? Not Detected ? ? ? 11/16/2020 ? Not Detected ? ? ? 08/21/2020 ?Not Detected ? [facility] LABORATORY SERVICESNPI:[id number] GLUCOSE (AUTOMATED)2020-12-13 03:11:00 Test Item Value Reference Range Interpretation Comments POCT GLU (test code = 8912722090) 171 mg/dL 70-110 H Lab Interpretation (test code = Abnormal 24389-7) NPI:[id number] GLUCOSE (AUTOMATED)2020-12-13 00:00:00 Test Item Value Reference Range Interpretation Comments POCT GLU (test code = [id number]) 118 mg/dL 70-110 H Lab Interpretation (test code = Abnormal 17222-5) NPI:[id number] GLUCOSE (AUTOMATED)2020-12-12 20:29:00 Test Item Value Reference Range Interpretation Comments POCT GLU (test code = 6519841411) 173 mg/dL 70-110 H Lab Interpretation (test code = Abnormal 41190-1) NPI:[id number] ABDOMEN [id number] 19:56:17 1. ?Hepatic steatosis. However, limited evaluation [...] main portal veinwasevaluated with color Doppler imaging. Financial Management Analyst images were obtainedfor the record. COMPARISON: Ultrasound [...] normal where visualized. SPLEEN:No images were obtained. [facility], Radiant Results Inft User - 12/12/2020 1:57 PM CSTEXAM: US ABDOMEN LIMITEDHISTORY: 70 years-old male with RUQ ultrasound to assess for common bileduct dilation .TECHNIQUE: Limited abdominal ultrasound focused on the liver, biliarysystem, pancreas, and spleen was performed. The main portal vein wasevaluated with color Doppler imaging. Financial Management Analyst images were obtainedfor the record.COMPARISON: Ultrasound abdomen [...] this study and agree with the abovereport. NPI:[id number] GLUCOSE (AUTOMATED)2020-12-12 19:24:00 Test Item Value Reference Range Interpretation Comments POCT GLU (test code = 3467669299) 230 mg/dL 70-110 H Lab Interpretation (test code = Abnormal 27741-8) NPI:[id number] CHEST 1 DZ4044-10-02 15:16:46 Low lung volumes with mild perihilar vascular congestion. No newinfiltrate, pleural effusion, or pne umothorax. Preliminary Report Dictated by Resident: Gabrielle Larry [...] pneumothorax. Preliminary Report Dictated by Resident: Gabrielle Miller MD., have reviewed thisstudy and agree with theove report.NPI:[id number] GLUCOSE (AUTOMATED)2020-12-12 14:34:00 Test Item Value Reference Range Interpretation Comments POCT GLU (test code = 9190303239) 225 mg/dL 70-110 H Lab Interpretation (test code = Abnormal 14735-1) NPI:[id number] [id number] 13:28:00 Test Item Value Reference Range Interpretation Comments URINE CULTURE (test < 10,000 CFU/mL mixed code = 630-4) aerobic organisms - suggests endogenous microbial contamination NPI:[id number] Metabolic Panel (NA, K, CL, CO2, GLUCOSE, BUN, CREATININE, CA)2020-12-12 10:05:00 Test Item Value Reference Range Interpretation Comments NA (test code = 136 mmol/L 135-145 7135058300) K (test code = 3.5 mmol/L 3.5-5.0 2538613468) CL (test code = 100 mmol/L 98-108 7529292071) CO2 TOTAL (test code = 31 mmol/L 23-31 0483963197) AGAP (test code = 2-16 4188269100) BUN (test code = 7 mg/dL 7-23 4209781691) GLUCOSE (test code = 259 mg/dL 70-110 H 8720217242) CREATININE (test code = 0.63 mg/dL 0.60-1.25 9567265121) CALCIUM (test code = 8.5 mg/dL 8.6-10.6 L 0709233585) eGFR Calculation mL/min/1.73m2 (Non-) (test code = 8041784824) eGFR Calculation mL/min/1.73m2 () (test code = 3011698177) JAMES (test code = JAMES) Association of [...] tests). Lab Interpretation Abnormal (test code = 46260-4) NPI:[id number] Yovnm0324-72-02 10:05:00 Test Item Value Reference Range Interpretation Comments MAGNESIUM (test code = 1783978600) 1.9 mg/dL 1.7-2.4 Lab Interpretation (test code = Normal 97980-3) NPI:[id number] with Epkoggzxluwf7846-81-15 09:48:00 Test Item Value Reference Range Interpretation [...] RDW-SD (test code = 46.0 fL 38.5-51.6 80579-7) RDW-CV (test code = 16.1 % 12.1-15.4 H 788-0) PLT (test code = See_Comment H [Automated 777-3) message] The sy stem which generated this result transmitted reference range : 150 - 328 10*3/ ?L. The reference r torito was not used to interpret this result as normal/abnormal . MPV (test code = 8.6 fL 9.8-13.0 L 46935-0) NRBC/100 WBC (test See_Comment [Automat ed code = 3572544324) message] The system which generated this result transmitted reference range : 0.0 - 10.0 /100 WBCs. The refer ence range was not u sed to interpret th is result as normal/abnormal . NRBC x10^3 (test code <0.01 See_Comment [Auto mated = 8122873316) message] The s ystem which generated this result transmitted reference range : 10*3/?L. The reference range was not used to interpret this result as normal/abnormal . GRAN MAT (NEUT) % 70.2 % (test code = 770-8) IMM GRAN % (test code 0.30 % = 2658688489) LYMPH % (test code = 18.8 % 736-9) MONO % (test code = 5.0 % 5905-5) EOS % (test code = 5.2 % 713-8) BASO % (test code = 0.5 % 706-2) GRAN MAT x10^3(ANC) 6.05 10*3/uL 1.99-6.95 (test code = 8380850955) IMM GRAN x10^3 (test 0.03 10*3/uL 0.00-0.06 code = 3847866789) LYMPH x10^3 (test code 1.62 10*3/uL 1.09-3.23 = 731-0) MONO x10^3 (test code 0.43 10*3/uL 0.36-1.02 = 742-7) EOS x10^3 (test code = 0.45 10*3/uL 0.06-0.53 711-2) BASO x10^3 (test code 0.04 10*3/uL 0.01-0.09 = 704-7) Lab Interpretation Abnormal (test code = 44002-4) NPI:[id number] GLUCOSE (AUTOMATED)2020-12-12 03:42:00 Test Item Value Reference Range Interpretation Comments POCT GLU (test code = 196 mg/dL 70-110 H Notifi ed Provider 9079952498) Lab Interpretation (test Abnormal code = 50613-3) NPI:[id number] 02:24:00 Test Item Value Reference Range Interpretation Comments FOLATE SER (test code = 9814682035) 5.8 ng/mL 3.0-20.0 Lab Interpretation (test code = Normal 62116-3) NPI:[id number] B12, UIOKV5656-30-31 00:55:00 Test Item Value Reference Range Interpretation Comments VIT B12 (test code = 844 pg/mL 240-930 3963573627) JAMES (test code = JAMES) Biotin has been reported to cause a positive bias, interpret results relative to patient's use of biotin. Lab Interpretation (test Normal code = 07114-3) NPI:[id number] GLUCOSE (AUTOMATED)2020-12-12 00:14:00 Test Item Value Reference Range Interpretation Comments POCT GLU (test code = 9712215979) 164 mg/dL 70-110 H Lab Interpretation (test code = Abnormal 63232-9) NPI:[id number] [id number] 23:42:00 Test Item Value Reference Range Interpretation Comments CK (test code = 4946636537) <20 33-194 L Lab Interpretation (test code = Abnormal 88492-9) NPI:[id number] STIMULATING RLBWPUB1666-40-77 23:17:00 Test Item Value Reference Range Interpretation Comments TSH (test code = See_Comment Biotin has been 0442069991) reported to cau se a negative bias, interpret resul ts relative to pat ient's use of biotin. [Automated mess age] The system V[employer] generated this result transmitted ref erence range: 0.45 - 4 .70 mIU/L. The refe rence range was not u sed to interpret this result as normal/abnor mal. Lab Interpretation (test Normal code = 50820-0) NPI:[id number] HIPS 3 VW [id number] 21:41:53No appreciable fracture lines. RL: 6200 ICAL HISTORY:Pain. COMPARISON:none TECHNIQUE:XR HIPS 3 VW LEFT performed. Technical Quality: Adequate FINDINGS:There are no appreciable fracture lines or subluxations. ?There is grossanatomic alignment. ?No appreciable joint effusion. Moderate to severe hip joint space narrowing, with arthropathy. M arginalosteophytes and subchondral sclerosis. No osseous erosions. [facility], Radiant Results Inft User -12/11/2020 3:43 PM CSTCLINICAL HISTORY:Pain.COMPARISON:noneTECHNIQUE:XR HIPS 3 VW LEFT performed. Technical Quality: AdequateFINDINGS:There are no appreciable fracture lines or subluxations. There isgrossanatomic alignment. No appreciable joint effusion.Moderate to severe hip joint space narrowing, with arthropathy. Marginalosteophytes and subchondral sclerosis. No osseous erosions.IMPRESSIONNo appreciable fracture lines.RL: 6200 NPI:[id number] 20:00:00 Test Item Value Reference Range Interpretation Comments Procalcitonin (test 0.13 ng/mL <0.07 H code = 1838300534) JAMES (test code = JAMES) INTERPRETATION OF [...] lung abscess/empyema. For further information please refer to:[email or web address] Lab Interpretation Abnormal (test code = 88389-3) NPI:[id number] GLUCOSE (AUTOMATED)2020-12-11 19:07:00 Test Item Value Reference Range Interpretation Comments POCT GLU (test code = 9135469570) 274 mg/dL 70-110 H Lab Interpretation (test code = Abnormal 18827-8) NPI:[id number] 18:31:00 Test Item Value Reference Range Interpretation Comments MAGNESIUM (test code = 7340365898) 1.9 mg/dL 1.7-2.4 Lab Interpretation (test code = Normal 80409-0) NPI:[id number] [id number] 18:31:00 Test Item Value Reference Range Interpretation Comments FERRITIN (test code = 178.0 ng/mL 18.0-464.0 0647605208) JAMES (test code = JAMES) Biotin has been reported to cause a negative bias, interpret results relative to patient's use of biotin. Lab Interpretation (test Normal code = 24235-7) NPI:[id number] HEAD WO NYTXAVUW7083-88-10 14:36:47 No acute intracranial abnormality. Dilated ventricles [...] without theuse of intravenous contrast. Coronal and sagittalreformats were provided.FINDINGS:The ventricles are dilated out of [...] reviewed this study and agree with the abovereport.NPI:[id number] 14:28:00 Test Item Value Reference Range Interpretation Comments APPEARANCE (test code = Clear Clear 6237505624) COLOR (test code = Yellow Yellow 7249384656) PH (test code = 4.8-8.0 3528253967) SP GRAVITY (test code = 1.003-1.030 7226438812) GLU U QUAL (test code = 500 mg/dL Normal A 9651143339) BLOOD (test code = Negative Negative 8924432174) KETONES (test code = 5 mg/dL Negative A 2116200198) PROTEIN (test code = Negative Negative 2887-8) UROBILIN (test code = Normal Normal 0444427483) BILIRUBIN (test code = Negative Negative 0929126774) NITRITE (test code = Negative Negative 5854379043) LEUK RYAN (test code = Negative Negative 0201321080) RBC/HPF (test code = See_Comment [Autom ated message] 2879509327) The system Vad[employer] generated this result transmit ronan reference range : 0 - 3 HPF. The refe rence range was not u sed to interpret th is result as normal/abnormal . WBC/HPF (test code = See_Comment [Autom ated message] 8849310682) The system Vad[employer] generated this result transmit ronan reference range : 0 - 5 HPF. The refe rence range was not u sed to interpret th is result as normal/abnormal . BACTERIA (test code = Negative Negative 6186483018) MUCOUS (test code = Slight Negative LPF A 1707331908) SQ EPITH (test code = HPF 0663500070) Lab Interpretation (test Abnormal code = 98545-8) NPI:[id number] (ID NOW RAPID TESTING)2020-12-11 13:10:00 Test Item Value Reference Range Interpretation Comments SARS-CoV-2 Rapid ID NOW Not Detected Not Detected (test code = 00306-2) JAMES (test code = JAMES) ID NOW COVID-19 Assay is an isothermal nucleic acid amplification test intended for the qualitative detection of nucleic acid from SARS-CoV-2 viral RNA in nasopharyngeal (CHEMISTRY FACULTY MEMBER) specimens. It is used under Emergency Use [...] indicated. Lab Interpretation Normal (test code = 22759-0) NPI:[id number]. METABOLIC PANEL (09884)2020-12-11 12:29:00 Test Item Value Reference Range Interpretation Comments NA (test code = 136 mmol/L 135-145 0456197688) K (test code = 3.5 mmol/L 3.5-5.0 0292448297) CL (test code = 95 mmol/L 98-108 L 8005465769) CO2 TOTAL (test code = 35 mmol/L 23-31 H 1806853023) AGAP (test code = 2-16 1068443073) BUN (test code = 9 mg/dL 7-23 4903098684) GLUCOSE (test code = 329 mg/dL 70-110 H 6748234446) CREATININE (test code = 0.72 mg/dL 0.60-1.25 8194387717) TOTAL BILI (test code = 0.6 mg/dL 0.1-1.4 0854651582) CALCIUM (test code = 9.0 mg/dL 8.6-10.6 7990657695) T PROTEIN (test code = 6.8 g/dL 6.3-8.2 4404776677) ALBUMIN (test code = 3.8 g/dL 3.5-5.0 6244495924) ALK PHOS (test code = 288 U/L 34-122 H 9820850449) ALTv (test code = 46 U/L 5-50 1742-6) AST(SGOT) (test code = 38 U/L 13-40 5507702833) eGFR Calculation mL/min/1.73m2 (Non-) (test code = 9579026786) eGFR Calculation mL/min/1.73m2 () (test code = 3001171602) JAMES (test code = JAMES) Association of [...] tests). Lab Interpretation Abnormal (test code = 04602-2) NPI:[id number] Acid Whole Rsmiw4605-25-48 12:23:00 Test Item Value Reference Range Interpretation Comments LACTIC ACID (test code = 2.09 mmol/L 0.50-2.20 7432943538) Lab Interpretation (test code = Normal 21200-3) NPI:[id number] WITH [id number] 12:17:00 Test Item Value Reference Range Interpretation [...] RDW-SD (test code = 44.9 fL 38.5-51.6 77156-0) RDW-CV (test code = 15.9 % 12.1-15.4 H 788-0) PLT (test code = See_Comment H [Automated 777-3) message] The sy stem which generated this result transmitted reference range : 150 - 328 10*3/ ?L. The reference r torito was not used to interpret this result as normal/abnormal . MPV (test code = 8.3 fL 9.8-13.0 L 04050-9) NRBC/100 WBC (test See_Comment [Automat ed code = 2735967145) message] The system which generated this result transmitted reference range : 0.0 - 10.0 /100 WBCs. The refer ence range was not u sed to interpret th is result as normal/abnormal . NRBC x10^3 (test code <0.01 See_Comment [Auto mated = 8357254825) message] The s ystem which generated this result transmitted reference range : 10*3/?L. The reference range was not used to interpret this result as normal/abnormal . GRAN MAT (NEUT) % 77.9 % (test code = 770-8) IMM GRAN % (test code 0.50 % = 8445465871) LYMPH % (test code = 12.2 % 736-9) MONO % (test code = 5.2 % 5905-5) EOS % (test code = 3.7 % 713-8) BASO % (test code = 0.5 % 706-2) GRAN MAT x10^3(ANC) 9.57 10*3/uL 1.99-6.95 H (test code = 0139486275) IMM GRAN x10^3 (test 0.06 10*3/uL 0.00-0.06 code = 7718768234) LYMPH x10^3 (test code 1.50 10*3/uL 1.09-3.23 = 731-0) MONO x10^3 (test code 0.64 10*3/uL 0.36-1.02 = 742-7) EOS x10^3 (test code = 0.46 10*3/uL 0.06-0.53 711-2) BASO x10^3 (test code 0.06 10*3/uL 0.01-0.09 = 704-7) Lab Interpretation Abnormal (test code = 90866-3) NPI:[id number] ONLY COVID NEUPTMLGOBOXCG9220-58-93 18:43:00COVID DMT InterpretationInterpretation/Recommendations: Molecular NAAT Test Results for Active Infection by SARS-CoV-2 Virus: This result indicates that the patient has tested negative on one occasion for the SARS-CoV-2 virus that causes COVID-19 illness. The most likely interpretation for approximately two-thirds of patients with a negative test is that the patient is truly negative and has not been infected with the SARS-CoV-2 virus. However, for those tested using a nasopharyngeal sample, there is approximately a oqr-dm-gfsqc chance that the patient was infected and the result of the first test is a "false" negative. This occurs because the virus is predominantly in the lung and out of reach of the nasopharyngeal swab. If the patient continues to [...] upon aggregate data pooled from the [facility] medical record including both current and prior COVID-19 related testing results for the following tests offered at our institution:A. Tests for the Identification of SARS-CoV-2 RNA:SARS-CoV-2 PCR assays including Ada Aptima, Ada Fusion, Barrett RealTime, and FamilyLeaf Xpert Xpress. SARS-CoV-2 Rapid ID NOW by the ID NOW assay. ? B. Tests for the Identification of SARS-CoV-2 Antibodies: Chemiluminescent immunoassays including Access SARS-CoV-2 IgM (DXI 600), BioCryst PharmaceuticalsS Kojg-FWHP-InB-2 IgG (Vitros 5600 and Vitros 3600), and Barrett SARS-CoV-2 IgG (YARDAGE CONTROL OPERATOR FORMING I System). These interpretation comments assume that only the above testing was utilized and that the approved acceptable specimen type(s) were used for a given test. These interpretations are autopopulated into [employer] based on computerized algorithms matching an interpretation code number to the patient's set of test results. While a clinical pathologist evaluates the combinations for clinical accuracy, clinical correlation is recommended as it may not take into account very remote prior testing. Furthermore, it does not consider testing a patient may have had outside of the [facility] system. Additionally, it should be noted that the computerized algorithm treats the results for PCR testing and Rapid ID NOW testing (also PCR) synonymously, and thus, refers to both testing methodologies as PCR tests. Given that the sensitivity of [facility]'s Rapid ID NOW testingplatform is analogous [...] panel may be beneficial in this setting. [facility] LABORATORY SERVICESCOVID FdwysrqXIQT-DhR-5 Rapid ID NOW (no units) ? ? Date ? Value ? 08/21/2020 ? Not Detected ? [facility] LABORATORY SERVICESNPI:[id number] GLUCOSE (AUTOMATED)2020-08-23 18:25:00 Test Item Value Reference Range Interpretation Comments POCT GLU (test code = 5490341459) 297 mg/dL 70-110 H Lab Interpretation (test code = Abnormal 27295-7) NPI:[id number] GLUCOSE (AUTOMATED)2020-08-23 14:25:00 Test Item Value Reference Range Interpretation Comments POCT GLU (test code = 2277557832) 181 mg/dL 70-110 H Lab Interpretation (test code = Abnormal 30370-8) NPI:[id number] Metabolic Panel (NA, K, CL, CO2, GLUCOSE, BUN, CREATININE, CA)2020-08-23 11:45:00 Test Item Value Reference Range Interpretation Comments NA (test code = 132 mmol/L 135-145 L 9206114180) K (test code = 4.0 mmol/L 3.5-5 3646339684) CL (test code = 96 mmol/L 98-108 L 7755051078) CO2 TOTAL (test code = 33 mmol/L 23-31 H 2219681734) AGAP (test code = 2-16 2735002439) BUN (test code = 9 mg/dL 7-23 0821510017) GLUCOSE (test code = 176 mg/dL 70-110 H 8672091864) CREATININE (test code = 0.66 mg/dL 0.6-1.25 7297021423) CALCIUM (test code = 8.5 mg/dL 8.6-10.6 L 5982638465) eGFR Calculation mL/min/1.73m2 (Non-) (test code = 9965299930) eGFR Calculation mL/min/1.73m2 () (test code = 5262153135) AJMES (test code = JAMES) Association of Glomerular [...] tests). Lab Interpretation Abnormal (test code = 63612-1) NPI:[id number] Xyomg6576-43-80 11:45:00 Test Item Value Reference Range Interpretation Comments MAGNESIUM (test code = 2852314750) 2.0 mg/dL 1.7-2.4 Lab Interpretation (test code = Normal 94900-9) NPI:[id number] with Xaufausyyjdk9246-62-16 11:38:00 Test Item Value Reference Range Interpretation Comments WBC (test code = See_Comment [Automated 8390-2) message] The sy stem which generated this [...] RDW-SD (test code = 41.8 fL 38.5-51.6 80174-4) RDW-CV (test code = 14.3 % 12.1-15.4 788-0) PLT (test code = See_Comment H [Automated 777-3) message] The sy stem which generated this result transmitted reference range : 150 - 328 10*3/ ?L. The reference r torito was not used to interpret this result as normal/abnormal . MPV (test code = 8.0 fL 9.8-13 L 13606-5) NRBC/100 WBC (test See_Comment [Automat ed code = 9965588729) message] The system which generated this result transmitted reference range : 0.0 - 10.0 /100 WBCs. The refer ence range was not u sed to interpret th is result as normal/abnormal . NRBC x10^3 (test code <0.01 See_Comment [Auto mated = 5799712590) message] The s ystem which generated this result transmitted reference range : 10*3/?L. The reference range was not used to interpret this result as normal/abnormal . GRAN MAT (NEUT) % 61.5 % (test code = 770-8) IMM GRAN % (test code 2.00 % = 7132902283) LYMPH % (test code = 25.5 % 736-9) MONO % (test code = 6.3 % 5905-5) EOS % (test code = 3.7 % 713-8) BASO % (test code = 1.0 % 706-2) GRAN MAT x10^3(ANC) 5.29 10*3/uL 1.99-6.95 (test code = 1618638917) IMM GRAN x10^3 (test 0.17 10*3/uL 0-0.06 H code = 2991344063) LYMPH x10^3 (test code 2.19 10*3/uL 1.09-3.23 = 731-0) MONO x10^3 (test code 0.54 10*3/uL 0.36-1.02 = 742-7) EOS x10^3 (test code = 0.32 10*3/uL 0.06-0.53 711-2) BASO x10^3 (test code 0.09 10*3/uL 0.01-0.09 = 704-7) Lab Interpretation Abnormal (test code = 44115-2) NPI:[id number] GLUCOSE (AUTOMATED)2020-08-23 10:22:00 Test Item Value Reference Range Interpretation Comments POCT GLU (test code = 9012627758) 164 mg/dL 70-110 H Lab Interpretation (test code = Abnormal 32720-9) NPI:[id number] GLUCOSE (AUTOMATED)2020-08-23 05:56:00 Test Item Value Reference Range Interpretation Comments POCT GLU (test code = 7273283483) 242 mg/dL 70-110 H Lab Interpretation (test code = Abnormal 50154-3) NPI:[id number] GLUCOSE (AUTOMATED)2020-08-23 03:02:00 Test Item Value Reference Range Interpretation Comments POCT GLU (test code = 0620431365) 210 mg/dL 70-110 H Lab Interpretation (test code = Abnormal 09732-9) NPI:[id number] GLUCOSE (AUTOMATED)2020-08-22 23:40:00 Test Item Value Reference Range Interpretation Comments POCT GLU (test code = 5185945932) 267 mg/dL 70-110 H Lab Interpretation (test code = Abnormal 32621-9) NPI:[id number] GLUCOSE (AUTOMATED)2020-08-22 19:08:00 Test Item Value Reference Range Interpretation Comments POCT GLU (test code = 6228550374) 191 mg/dL 70-110 H Lab Interpretation (test code = Abnormal 62779-5) NPI:[id number] GLUCOSE (AUTOMATED)2020-08-22 13:50:00 Test Item Value Reference Range Interpretation Comments POCT GLU (test code = 5873555294) 174 mg/dL 70-110 H Lab Interpretation (test code = Abnormal 70966-6) NPI:[id number] HYYPXWQ1808-28-48 12:59:00 Test Item Value Reference Range Interpretation Comments URINE CULTURE (test No aerobic growth (< code = 630-4) 1000 CFU/mL) NPI:[id number] with Lgtorfhmlvmz0371-88-45 11:28:00 Test Item Value Reference Range Interpretation [...] RDW-SD (test code = 42.5 fL 38.5-51.6 76002-2) RDW-CV (test code = 14.5 % 12.1-15.4 788-0) PLT (test code = See_Comment H [Automated 777-3) message] The sy stem which generated this result transmitted reference range : 150 - 328 10*3/ ?L. The reference r torito was not used to interpret this result as normal/abnormal . MPV (test code = 8.0 fL 9.8-13 L 36494-1) NRBC/100 WBC (test See_Comment [Automat ed code = 7650616402) message] The system which generated this result transmitted reference range : 0.0 - 10.0 /100 WBCs. The refer ence range was not u sed to interpret th is result as normal/abnormal . NRBC x10^3 (test code <0.01 See_Comment [Auto mated = 2297455277) message] The s ystem which generated this result transmitted reference range : 10*3/?L. The reference range was not used to interpret this result as normal/abnormal . GRAN MAT (NEUT) % 69.1 % (test code = 770-8) IMM GRAN % (test code 2.20 % = 4734428420) LYMPH % (test code = 20.9 % 736-9) MONO % (test code = 5.8 % 5905-5) EOS % (test code = 1.0 % 713-8) BASO % (test code = 1.0 % 706-2) GRAN MAT x10^3(ANC) 6.51 10*3/uL 1.99-6.95 (test code = 4132491785) IMM GRAN x10^3 (test 0.21 10*3/uL 0-0.06 H code = 0803376680) LYMPH x10^3 (test code 1.97 10*3/uL 1.09-3.23 = 731-0) MONO x10^3 (test code 0.55 10*3/uL 0.36-1.02 = 742-7) EOS x10^3 (test code = 0.09 10*3/uL 0.06-0.53 711-2) BASO x10^3 (test code 0.09 10*3/uL 0.01-0.09 = 704-7) BASO STIPPLING (test Present A code = 703-9) BANDS (test code = Increased A 5409300218) TOXIC CHANGES (test Present A code = 803-7) Lab Interpretation Abnormal (test code = 90601-7) NPI:[id number] Metabolic Panel (NA, K, CL, CO2, GLUCOSE, BUN, CREATININE, CA)2020-08-22 11:12:00 Test Item Value Reference Range Interpretation Comments NA (test code = 135 mmol/L 135-145 2069986999) K (test code = 3.6 mmol/L 3.5-5 7952688797) CL (test code = 99 mmol/L 98-108 8143606010) CO2 TOTAL (test code = 31 mmol/L 23-31 6210216235) AGAP (test code = 2-16 9796526726) BUN (test code = 9 mg/dL 7-23 1139675951) GLUCOSE (test code = 198 mg/dL 70-110 H 9731155432) CREATININE (test code = 0.72 mg/dL 0.6-1.25 0669618304) CALCIUM (test code = 8.3 mg/dL 8.6-10.6 L 3360996467) eGFR Calculation mL/min/1.73m2 (Non-) (test code = 5714933091) eGFR Calculation mL/min/1.73m2 () (test code = 9013995671) JAMES (test code = JAMES) Association of [...] tests). Lab Interpretation Abnormal (test code = 43742-8) NPI:[id number] Vilop4591-37-31 11:12:00 Test Item Value Reference Range Interpretation Comments MAGNESIUM (test code = 6202188755) 2.0 mg/dL 1.7-2.4 Lab Interpretation (test code = Normal 18040-0) NPI:[id number] Panel (Total Cholesterol, Triglycerides, HDL) - Fasting 2020-08-22 11:12:00 Test Item Value Reference Range Interpretation Comments CHOL (test code = 155 mg/dL 120-200 5604066237) HDL (test code = 42 mg/dL >40 1916834602) HDLC RATIO (test code = See_Comment [Au tomated message] 3576820795) The system [employer] generated this result transmit ronan reference range : <=5.0. The refe rence range was not u sed to interpret th is result as normal/abnormal . TRIG (test code = 186 mg/dL 30-170 H 7643609910) LDL CHOL (test code = 76 mg/dL See_Comment [Auto mated message] 77408-4) The system [employer] generated this result transmit ronan reference range : <=160. The refe rence range was not u sed to interpret th is result as normal/abnormal . VLDL (test code = 37 mg/dL 5-60 3346489410) Lab Interpretation (test Abnormal code = 63907-7) NPI:[id number] FUNCTION PANEL ([id number]) (ALB,T.PRO,BILI T,BU/BC,ALT,AST,ALK PHOS)2020-08-22 11:12:00 Test Item Value Reference Range Interpretation Comments TOTAL BILI (test code = 1127729964) 0.6 mg/dL 0.1-1.1 BILI UNCON (test code = 7504852717) 0.2 mg/dL 0.1-1.1 BILI CONJ (test code = 9532434513) 0.0 mg/dL 0-0.3 T PROTEIN (test code = 4761834932) 6.0 g/dL 6.3-8.2 L ALBUMIN (test code = 4672185063) 2.8 g/dL 3.5-5 L ALK PHOS (test code = 7840903049) 222 U/L 34-122 H ALTv (test code = 1742-6) 27 U/L 5-50 AST(SGOT) (test code = 9117937355) 30 U/L 13-40 Lab Interpretation (test code = Abnormal 72960-9) NPI:[id number] GLUCOSE (AUTOMATED)2020-08-22 10:11:00 Test Item Value Reference Range Interpretation Comments POCT GLU (test code = 4796768421) 196 mg/dL 70-110 H Lab Interpretation (test code = Abnormal 71132-9) NPI:[id number] GLUCOSE (AUTOMATED)2020-08-22 07:15:00 Test Item Value Reference Range Interpretation Comments POCT GLU (test code = 4985220880) 183 mg/dL 70-110 H Lab Interpretation (test code = Abnormal 67951-6) NPI:[id number] GLUCOSE (AUTOMATED)2020-08-22 02:30:00 Test Item Value Reference Range Interpretation Comments POCT GLU (test code = 1619834057) 295 mg/dL 70-110 H Lab Interpretation (test code = Abnormal 79748-4) NPI:[id number] GLUCOSE (AUTOMATED)2020-08-21 23:46:00 Test Item Value Reference Range Interpretation Comments POCT GLU (test code = 6060482887) 258 mg/dL 70-110 H Lab Interpretation (test code = Abnormal 90887-9) NPI:[id number]-TUIRFHKL [id number] 18:50:00 Test Item Value Reference Range Interpretation Comments CRP (test code = 8473077198) 15.5 mg/dL <0.8 H Lab Interpretation (test code = Abnormal 58618-5) NPI:[id number] GLUCOSE (AUTOMATED)2020-08-21 18:21:00 Test Item Value Reference Range Interpretation Comments POCT GLU (test code = 1935036653) 297 mg/dL 70-110 H Lab Interpretation (test code = Abnormal 02265-4) NPI:[id number] 16:24:00 Test Item Value Reference Range Interpretation Comments ALCOHOL (test code = <10 mg/dL 1082312683) JAMES (test code = Toxic Greater than or JAMES) equal to 80 mg/dL. NOTE: Whole blood values are approximately 10% to 15% lower than serum and plasma. NPI:[id number] ONLY - URINE DRUG (IMMUNOASSAY) - 4 ER [id number] 15:36:00 Test Item Value Reference Range Interpretation Comments AMPHET (test code = Negative Negative 2395218066) Cocaine Metabolite (test Negative Negative code = 1496677542) OPIATES (test code = Presumptive Positive Negative A 1969910966) THC (test code = Negative Negative 4356866536) JAMES (test code = JAMES) Urine Drug Cutoff Ranges Amphetamine: ? 1,000 ng/mLCocaine: ? 150 ng/mLOpiates: ? 300 ng/mLCannabinoids: ?50 ng/mL The results are to be used only for medical (i.e., treatment) purposes. Unconfirmed screening results must not be used for non-medical purposes (e.g., employment testing, legal testing). Lab Interpretation (test Abnormal code = 72857-7) NPI:[id number] ONLY - SYPHILIS [id number] 15:04:00 Test Item Value Reference Range Interpretation Comments Syphilis IgG/IgM (test Non-reactive Non-reactive code = 20980-5) JAMES (test code = JAMES) Non-reactive - No serologic evidence of T. pallidum infection. Cannot exclude incubating or early syphilis. Submit a second specimen in 2-4 weeks if syphilis is clinically suspected. Equivocal - Further testing to follow. Reactive - Further testing to follow. Lab Interpretation (test Normal code = 75550-1) NPI:[id number] 14:52:00 Test Item Value Reference Range Interpretation Comments APPEARANCE (test code = Clear Clear 4753110489) COLOR (test code = Yellow Yellow 5883468858) PH (test code = 4.8-8.0 0466383115) SP GRAVITY (test code = 1.003-1.030 9804077599) GLU U QUAL (test code = 500 mg/dL Normal A 2823177933) BLOOD (test code = Negative Negative 7002844053) KETONES (test code = 20 mg/dL Negative A 7518846529) PROTEIN (test code = Negative Negative 2887-8) UROBILIN (test code = Normal Normal 6194118321) BILIRUBIN (test code = Negative Negative 1467228804) NITRITE (test code = Negative Negative 4960603761) LEUK RYAN (test code = Negative Negative 0876550789) RBC/HPF (test code = <1 See_Comment [Autom ated message] 0680706660) The system [employer] generated this result transmit ronan reference range : 0 - 3 HPF. The refe rence range was not u sed to interpret th is result as normal/abnormal . WBC/HPF (test code = See_Comment [Autom ated message] 1859963870) The system [employer] generated this result transmit ronan reference range : 0 - 5 HPF. The refe rence range was not u sed to interpret th is result as normal/abnormal . BACTERIA (test code = Negative Negative 2382218740) MUCOUS (test code = Slight Negative LPF A 7814332640) Lab Interpretation (test Abnormal code = 09936-3) NPI:[id number] PARTIAL THRMPLAS [id number] 13:45:00 Test Item Value Reference Range Interpretation Comments APTT Patient (test code = See_Comment [ Automated message] 3173-2) The system [employer] generated this result transmitted ref erence range: 26 - 36 Seconds. The re ference range was not u sed to interpret this result as normal/abnor mal. Lab Interpretation (test Normal code = 72461-5) NPI:[id number] GLUCOSE (AUTOMATED)2020-08-21 13:45:00 Test Item Value Reference Range Interpretation Comments POCT GLU (test code = 9550377783) 246 mg/dL 70-110 H Lab Interpretation (test code = Abnormal 48231-7) NPI:[id number] 1/2 AG-AB WITH [id number] 12:32:00 Test Item Value Reference Range Interpretation Comments HIV Negative Negative Semi-quantitative (test code = 59648-9) JAMES (test code = Non-reactive for HIV-1 JAMES) antigen and HIV-1/HIV-2 antibodies. ?No laboratory evidence of HIV infection. ?Repeat in 2-4 weeks if acute HIV infection is suspected. NPI:[id number] WITH [id number] 12:18:00 Test Item Value Reference Range Interpretation [...] RDW-SD (test code = 44.4 fL 38.5-51.6 91398-1) RDW-CV (test code = 14.5 % 12.1-15.4 788-0) PLT (test code = See_Comment H [Automated 777-3) message] The sy stem which generated this result transmitted reference range : 150 - 328 10*3/ ?L. The reference r torito was not used to interpret this result as normal/abnormal . MPV (test code = 8.5 fL 9.8-13 L 66245-3) NRBC/100 WBC (test See_Comment [Automat ed code = 9920092892) message] The system which generated this result transmitted reference range : 0.0 - 10.0 /100 WBCs. The refer ence range was not u sed to interpret th is result as normal/abnormal . NRBC x10^3 (test code <0.01 See_Comment [Auto mated = 6624461146) message] The s ystem which generated this result transmitted reference range : 10*3/?L. The reference range was not used to interpret this result as normal/abnormal . GRAN MAT (NEUT) % 90.4 % (test code = 770-8) IMM GRAN % (test code 1.30 % = 0024249575) LYMPH % (test code = 7.1 % 736-9) MONO % (test code = 0.5 % 5905-5) EOS % (test code = 0.1 % 713-8) BASO % (test code = 0.6 % 706-2) GRAN MAT x10^3(ANC) 7.74 10*3/uL 1.99-6.95 H (test code = 5195403188) IMM GRAN x10^3 (test 0.11 10*3/uL 0-0.06 H code = 4256747207) LYMPH x10^3 (test code 0.61 10*3/uL 1.09-3.23 L = 731-0) MONO x10^3 (test code 0.04 10*3/uL 0.36-1.02 L = 742-7) EOS x10^3 (test code = <0.03 0.06-0.53 L 711-2) BASO x10^3 (test code 0.05 10*3/uL 0.01-0.09 = 704-7) POLYCHROMASIA (test 2+ See_Comment [Automa ronan code = 46139-0) message] The system which generated this result transmitted reference range : 2+. The referen ce range was not u sed to interpret th is result as normal/abnormal . BANDS (test code = Increased A 1730637519) Lab Interpretation Abnormal (test code = 17781-2) NPI:[id number] 11:48:00 Test Item Value Reference Range Interpretation Comments Procalcitonin (test 0.36 ng/mL <0.07 H code = 5155728937) JAMES (test code = JAMES) INTERPRETATION OF [...] lung abscess/empyema. For further information please refer to:[email or web address] Lab Interpretation Abnormal (test code = 36676-3) NPI:[id number] [id number] 10:53:00 Test Item Value Reference Range Interpretation Comments LDH (test code = 2738679326) 351 U/L 300-600 Lab Interpretation (test code = Normal 40064-5) NPI:[id number] [id number] 10:07:00 Test Item Value Reference Range Interpretation Comments ESR (test code = See_Comment H [Automated message] 2641141564) The system [employer] generated this result transmitted ref erence range: 0 - 10 m m/HR. The reference r torito was not used to interpret this result as normal/abnor mal. Lab Interpretation (test Abnormal code = 11959-2) NPI:[id number] GLUCOSE (AUTOMATED)2020-08-21 09:45:00 Test Item Value Reference Range Interpretation Comments POCT GLU (test code = 0927741995) 287 mg/dL 70-110 H Lab Interpretation (test code = Abnormal 53763-0) NPI:[id number] Hemoglobin (A1C)2020-08-21 09:29:00 Test Item Value Reference Range Interpretation Comments HGB A1C (test code = 4548-4) 9.8 % 4-6 H Lab Interpretation (test code = Abnormal 96205-5) NPI:[id number] (ID NOW RAPID TESTING)2020-08-21 09:13:00 Test Item Value Reference Range Interpretation Comments SARS-CoV-2 Rapid ID NOW Not Detected Not Detected (test code = 75208-1) JAMES (test code = JAMES) ID NOW COVID-19 Assay is an isothermal nucleic acid amplification test intended for the qualitative detection of nucleic acid from SARS-CoV-2 viral RNA in nasopharyngeal (CHEMISTRY FACULTY MEMBER) specimens. It is used under Emergency Use [...] indicated. Lab Interpretation Normal (test code = 01586-5) NPI:[id number] Time / [id number] 08:59:00 Test Item Value Reference Range Interpretation Comments PROTIME PATIENT (test See_Comment H [Auto mated message] code = 5964-2) The system [employer] generated this result transmitted ref erence range: 10.1 - 1 2.6 Seconds. The reference range was not used to int erpret this result as normal/abnormal . INR (test code = 6301-6) Nor mal INR <1.1; Warfarin Therap eutic range 2.0 to 3. 0 or 2.5 to 3.5, dep ending upon the indica tions. Lab Interpretation (test Abnormal code = 08135-4) NPI:[id number] 08:59:00 Test Item Value Reference Range Interpretation Comments APTT Patient (test code = See_Comment [ Automated message] 3173-2) The system [employer] generated this result transmitted ref erence range: 26 - 36 Seconds. The re ference range was not u sed to interpret this result as normal/abnor mal. Lab Interpretation (test Normal code = 14830-5) NPI:[id number] METABOLIC PANEL (NA, K, CL, CO2, GLUCOSE, BUN, CREATININE, CA)2020-08-21 08:52:00 Test Item Value Reference Range Interpretation Comments NA (test code = 136 mmol/L 135-145 8495975166) K (test code = 4.3 mmol/L 3.5-5 8271723558) CL (test code = 104 mmol/L 98-108 2694087312) CO2 TOTAL (test code = 24 mmol/L 23-31 8358011154) AGAP (test code = 2-16 5378019153) BUN (test code = 8 mg/dL 7-23 6472506119) GLUCOSE (test code = 308 mg/dL 70-110 H 5955086047) CREATININE (test code = 0.72 mg/dL 0.6-1.25 2221921027) CALCIUM (test code = 7.8 mg/dL 8.6-10.6 L 4159656407) eGFR Calculation mL/min/1.73m2 (Non-) (test code = 0207608263) eGFR Calculation mL/min/1.73m2 () (test code = 4468940105) JAMES (test code = JAMES) Association of [...] tests). Lab Interpretation Abnormal (test code = 44142-8) NPI:[id number] FUNCTION PANEL (19897) (ALB,T.PRO,BILI T,BU/BC,ALT,AST,ALK PHOS)2020-08-21 08:52:00 Test Item Value Reference Range Interpretation Comments TOTAL BILI (test code = 8753175223) 0.8 mg/dL 0.1-1.1 BILI UNCON (test code = 7377375169) 0.3 mg/dL 0.1-1.1 BILI CONJ (test code = 1622529632) 0.0 mg/dL 0-0.3 T PROTEIN (test code = 0348504775) 5.7 g/dL 6.3-8.2 L ALBUMIN (test code = 8608416463) 2.7 g/dL 3.5-5 L ALK PHOS (test code = 8952519969) 245 U/L 34-122 H ALTv (test code = 1742-6) 37 U/L 5-50 AST(SGOT) (test code = 5208489129) 43 U/L 13-40 H Lab Interpretation (test code = Abnormal 81312-2)
--- NOTE | 2022-02-17 16:45 | EDPHYS ---
Physician Documentation [facility] Name: Kiel Ngo Age: 71 yrs Sex: Male : 1950 Arrival Date: 02/17/2022 Time: 16:00 Bed 16 Private MD: ED Physician Stu Banerjee HPI: 02/17 16:36 This 71 yrs old Male presents to ER via EMS with complaints of Back Pain. chetan 16:36 The patient presents with pain that is chronic, with no known mechanism of injury. The chetan symptoms are located in the low back, BILATERAL HIPS. Onset: The symptoms/episode began/occurred 3 day(s) ago. The pain does not radiate. Associated signs and symptoms: The patient has no apparent associated signs or symptoms. The problem was sustained BEDRIDDEN. Modifying factors: The patient symptoms are alleviated by remaining still, the patient symptoms are aggravated by movement. Severity of symptoms: At their worst the symptoms were mild, in the emergency department the symptoms are unchanged. The patient has experienced similar episodes in the past, multiple times. Historical: - Allergies: 16:05 Demerol; ld1 16:05 metformin; ld1 16:05 Morphine; ld1 - PMHx: 16:05 chronic back pain; Atrial fibrillation; neuropathy; Chronic right leg pain; ld1 - PSHx: 16:05 PANCREAS SX; back sx; R. Ankle SX; ld1 - Immunization history:: Adult Immunizations up to date, Client reports receiving the 2nd dose of the Covid vaccine. - Social history:: Smoking status: Patient denies any tobacco usage or history of. Patient/guardian denies using alcohol. - Family history:: not pertinent. ROS: 16:36 Constitutional: Negative for fever, chills, and weight loss, Eyes: Negative for injury, chetan pain, redness, and discharge, ENT: Negative for injury, pain, and discharge, Neck: Negative for injury, pain, and swelling, Cardiovascular: Negative for chest pain, palpitations, and edema, Respiratory: Negative for shortness of breath, cough, wheezing, and pleuritic chest pain, Abdomen/GI: Negative for abdominal pain, nausea, vomiting, diarrhea, and constipation, Back: Negative for injury and pain, : Negative for injury, bleeding, discharge, and swelling, Skin: Negative for injury, rash, and discoloration, Neuro: Negative for headache, weakness, numbness, tingling, and seizure, Psych: Negative for depression, anxiety, suicide ideation, homicidal ideation, and hallucinations, Allergy/Immunology: Negative for hives, rash, and allergies, Endocrine: Negative for neck swelling, polydipsia, polyuria, polyphagia, and marked weight changes, Hematologic/Lymphatic: Negative for swollen nodes, abnormal bleeding, and unusual bruising. 16:36 MS/extremity: Positive for decreased range of motion, pain. Exam: 16:36 Constitutional: This is a well developed, well nourished patient who is awake, alert, chetan and in no acute distress. Head/Face: Normocephalic, atraumatic. Eyes: Pupils equal round and reactive to light, extra-ocular motions intact. Lids and lashes normal. Conjunctiva and sclera are non-icteric and not injected. Cornea within normal limits. Periorbital areas with no swelling, redness, or edema. ENT: Nares patent. No nasal discharge, no septal abnormalities noted. Tympanic membranes are normal and external auditory canals are clear. Oropharynx with no redness, swelling, or masses, exudates, or evidence of obstruction, uvula midline. Mucous membranes moist. Neck: Trachea midline, no thyromegaly or masses palpated, and no cervical lymphadenopathy. Supple, full range of motion without nuchal rigidity, or vertebral point tenderness. No Meningismus. Chest/axilla: Normal chest wall appearance and motion. Nontender with no deformity. No lesions are appreciated. Cardiovascular: Regular rate and rhythm with a normal S1 and S2. No gallops, murmurs, or rubs. Normal PMI, no JVD. No pulse deficits. Respiratory: Lungs have equal breath sounds bilaterally, clear to auscultation and percussion. No rales, rhonchi or wheezes noted. No increased work of breathing, no retractions or nasal flaring. Abdomen/GI: Soft, non-tender, with normal bowel sounds. No distension or tympany. No guarding or rebound. No evidence of tenderness throughout. Back: No spinal tenderness. No costovertebral tenderness. Full range of motion. Skin: Warm, dry with normal turgor. Normal color with no rashes, no lesions, and no evidence of cellulitis. Neuro: Awake and alert, GCS 15, oriented to person, place, time, and situation. Cranial nerves II-XII grossly intact. Motor strength 5/5 in all extremities. Sensory grossly intact. Cerebellar exam normal. Normal gait. Psych: Awake, alert, with orientation to person, place and time. Behavior, mood, and affect are within normal limits. 16:36 Musculoskeletal/extremity: DVT Exam: No signs of deep vein thrombosis. no swelling, no tenderness, negative Homans' sign noted on exam, no appreciated bluish discoloration, no erythema, no increased warmth, pain. Vital Signs: 16:03 BP 155 / 109; Pulse 101; Resp 18; Temp 98.3(TE); Pulse Ox 94% on R/A; Weight 104.33 kg; ld1 Height 5 ft. 8 in. (172.72 cm); Pain 8/10; 16:03 Body Mass Index 34.97 (104.33 kg, 172.72 cm) ld1 MDM: 16:00 Patient medically screened. chetan 16:42 Differential diagnosis: arthritis, chronic back pain, Fatigue Osteoarthritis chetan Osteoporosis sprain. Data reviewed: vital signs, nurses notes, EMS record. Data interpreted: sign erector: rate is 101 beats/min, rhythm is regular, Pulse oximetry: on room air is 94 %. Counseling: I had a detailed discussion with the patient and/or guardian regarding: the historical points, exam findings, and any diagnostic results supporting the discharge/admit diagnosis, the need for outpatient follow up, for definitive care, a family practitioner, a painter hand. Administered Medications: 16:47 Drug: Dilaudid (HYDROmorphone) 2 mg Route: IM; Site: left deltoid; ld1 16:48 Follow up: Response: No adverse reaction ld1 16:47 Drug: Phenergan (promethazine) 25 mg Route: IM; Site: left deltoid; ld1 16:47 Follow up: Response: No adverse reaction ld1 Disposition Summary: 02/17/22 16:44 Discharge Ordered Location: Home chetan Problem: new chetan Symptoms: have improved chetan Condition: Stable chetan Diagnosis - Other chronic pain chetan Followup: chetan - With: Private Physician - When: 2 - 3 days - Reason: Recheck today's complaints, Continuance of care, Re-evaluation by your physician Followup: chetan - With: Madhu Francois DO - When: 2 - 3 days - Reason: Recheck today's complaints, Re-evaluation by your physician Discharge Instructions: - Discharge Summary Sheet chetan - Chronic Back Pain chetan - Chronic Pain, Adult chetan - Chronic Back Pain, Vefy-wb-Xvar chetan Forms: - Medication Reconciliation Form chetan - Thank You Letter chetan - Antibiotic Education chetan - Prescription Opioid Use chetan Signatures: Stu Banerjee MD MD cha Dibbern, Lauren, RN RN ld1
--- NOTE | 2022-02-17 16:45 | ER ---
Nurse's Notes [facility] Name: Kiel Ngo Age: 71 yrs Sex: Male : 1950 Arrival Date: 02/17/2022 Time: 16:00 Bed 16 Private MD: Diagnosis: Other chronic pain Presentation: 02/17 16:03 Chief complaint: Patient states: "I ran out of my Dilaudid today, I can get a refill on ld1 ." Pt reporting back and leg pain. Coronavirus screen: At this time, the client does not indicate any symptoms associated with coronavirus-19. Ebola Screen: No symptoms or risks identified at this time. Initial Sepsis Screen: Does the patient meet any 2 criteria? No. Patient's initial sepsis screen is negative. Does the patient have a suspected source of infection? No. Patient's initial sepsis screen is negative. Risk Assessment: Do you want to hurt yourself or someone else? Patient reports no desire to harm self or others. Onset of symptoms was February 17, 2022. 16:03 Method Of Arrival: EMS: [facility] ld1 16:03 Acuity: JOZEF 4 ld1 Triage Assessment: 16:05 General: Appears in no apparent distress. comfortable, Behavior is calm, cooperative, ld1 appropriate for age. Pain: Complains of pain in back, right leg and left leg Pain does not radiate. Pain currently is 8 out of 10 on a pain scale. Quality of pain is described as sharp, shooting, throbbing, Pain began gradually. EENT: No signs and/or symptoms were reported regarding the EENT system. Neuro: Level of Consciousness is awake, alert, obeys commands, Oriented to person, place, time, situation. Cardiovascular: Capillary refill < 3 seconds Patient's skin is warm and dry. Respiratory: Airway is patent Respiratory effort is even, unlabored. GI: Abdomen is round non-distended. : No signs and/or symptoms were reported regarding the genitourinary system. Derm: No signs and/or symptoms reported regarding the dermatologic system. Musculoskeletal: No signs and/or symptoms reported regarding the musculoskeletal system. Historical: - Allergies: 16:05 Demerol; ld1 16:05 metformin; ld1 16:05 Morphine; ld1 - PMHx: 16:05 chronic back pain; Atrial fibrillation; neuropathy; Chronic right leg pain; ld1 - PSHx: 16:05 PANCREAS SX; back sx; R. Ankle SX; ld1 - Immunization history:: Adult Immunizations up to date, Client reports receiving the 2nd dose of the Covid vaccine. - Social history:: Smoking status: Patient denies any tobacco usage or history of. Patient/guardian denies using alcohol. - Family history:: not pertinent. Screenin:06 Abuse screen: Denies threats or abuse. Denies injuries from another. Nutritional ld1 screening: No deficits noted. Tuberculosis screening: No symptoms or risk factors identified. Fall Risk None identified. Assessment: 16:06 Reassessment: See triage assessment. ld1 Vital Signs: 16:03 BP 155 / 109; Pulse 101; Resp 18; Temp 98.3(TE); Pulse Ox 94% on R/A; Weight 104.33 kg; ld1 Height 5 ft. 8 in. (172.72 cm); Pain 8/10; 16:03 Body Mass Index 34.97 (104.33 kg, 172.72 cm) ld1 ED Course: 16:00 Patient arrived in ED. chetan 16:00 Stu Banerjee MD is Attending Physician. [facility] 16:03 Danna Moreno, DIEGO is Primary Nurse. ld1 16:05 Triage completed. ld1 16:05 Arm band placed on right wrist. ld1 16:06 Patient has correct armband on for positive identification. Placed in gown. Bed in low ld1 position. Call light in reach. Side rails up X2. color television console monitor on. Pulse ox on. NIBP on. Door closed. Noise minimized. Warm blanket given. 16:06 No provider procedures requiring assistance completed. ld1 16:44 Madhu Francois DO is Referral Physician. chetan 17:06 Patient did not have IV access during this emergency room visit. ld1 Administered Medications: 16:47 Drug: Dilaudid (HYDROmorphone) 2 mg Route: IM; Site: left deltoid; ld1 16:48 Follow up: Response: No adverse reaction ld1 16:47 Drug: Phenergan (promethazine) 25 mg Route: IM; Site: left deltoid; ld1 16:47 Follow up: Response: No adverse reaction ld1 Outcome: 16:44 Discharge ordered by . chetan 17:04 Discharged to home via ambulance. ld1 17:04 Condition: stable 17:04 Discharge instructions given to patient, EMS, Instructed on discharge instructions, follow up and referral plans. Demonstrated understanding of instructions, follow-up care. 17:06 Patient left the ED. ld1 Signatures: Stu Banerjee MD MD cha Dibbern, Lauren, RN RN ld1
[2022-02-17] MEDS ORDERED: PROMETHAZINE INJ 25 MG/ML AMP ONE (16:46)
[2022-02-17] MEDS ORDERED: HYDROMORPHONE HCL 2 MG/ML inj ONE (16:46)
[2022-02-17 17:20] VITALS: BP 155/109; TEMP 98.3; O2SAT 94
== END 2022-02-17 17:06 | disposition home or self-care (01) ==
LOC: ER 15:54
DX: G89.29 Other chronic pain (principal); Z88.5 Allergy status to narcotic agent; Z88.8 Allergy status to other drugs, medicaments and biological substances
CPT/HCPCS: 96372; 99284; J2550; J1170

== ENCOUNTER 2022-03-04 13:51 | Emergency (ER) | payer OTHER ==
--- OUTSIDE RECORDS SUMMARY | 2022-03-04 13:58 | XMS REPORT | Continuity of Care Document ---
:1950 Author Organization [facility] t Address [address] [place] [address] Dr. [address] [place] [id number] Care Team Providers Name Role Phone DIOGENES [...] Policy Number Effective Date Expiration Date S [facility] [place]IC[place] PART A [id number] 2007 \\T\\ B 00:00:00 [employer] INDEMNITY [id number] 2016 00:00:00 MEDICARE PART A [id number] 2014 \\T\\ B - MEDICARE 00:00:00 INDEMNITY/TRADITIO [id number] NAL CHOICE - [employer] 00:00:00 Problems Condition [...] ents Source Name Type Date Date Clinician Lynn Propensi Active Rash 2019- Univers ty to [...] INGREDI 3-16 ity of 00:00: [place] 00 [facility] Branch GLIMEPIR DRUG Active Hives Univers EFREN INGREDI 3-16 ity of 00:00: [place] 00 Medical Branch METFORMI DRUG Active ITCHING Univers N INGREDI 3-16 ity of 00:00: [place] [address] Medical Branch Social History Social Habit Start Date Stop Date Quantity Comments Source Exposure to Not sure University of SARS-CoV-2 [facility] (event) Branch History of Chews Tobacco University of tobacco use [facility] History SDOK 2020-11-17 2020-11-17 5 University o f Financial 00:00:00 00:00:00 [facility] Branch History SDOK Food 2020-11-17 2020-11-17 1 Univers ity of Worry 00:00:00 00:00:00 [facility] History [facility] Food 2020-11-17 2020-11-17 1 Univers ity of Scarcity 00:00:00 00:00:00 [facility] History [facility] 2020-11-17 2020-11-17 1 University o f Transport Med 00:00:00 00:00:00 [facility] al Branch History [facility] 2020-11-17 2020-11-17 1 University o f Transport Non-Med 00:00:00 00:00:00 [place] [facility] edical Branch Education 2020-11-16 2020-11-16 21 [place] of 00:00:00 00:00:00 [facility] Alcohol intake 2020-11-16 2020-11-16 Ex-drinker [facility] 00:00:00 00:00:00 (finding) [facility] Tobacco use and 2020-08-21 2020-08-21 Former user Universi ty of exposure 00:00:00 00:00:00 [facility] Tobacco Comment 2020-08-21 2020-08-21 quit 10 years Univer sity of 00:00:00 00:00:00 ago, started in [place] Med ica 2nd year of Branch college (~40 years) Alcohol Comment 2020-08-21 2020-08-21 Used to have 2-3 Uni versity of 00:00:00 00:00:00 six-packs of [place] Medica l beer daily x 20 Branch years, quit 2005 History SDOK 2020-08-21 2020-08-21 99 University o f Alcohol Frequency 00:00:00 00:00:00 [place] M edical Branch History SDOK 2020-08-21 2020-08-21 99 [place] o f Alcohol Std 00:00:00 00:00:00 [place] Medical Drinks Branch History [facility] 2020-08-21 2020-08-21 99 [place] o f Alcohol Binge 00:00:00 00:00:00 [facility] al Branch Sex [birth year] At [birth year] Universit y of 00:00:00 00:00:00 [place] [facility] Smoking Status Start Date Stop Date Source Never smoker [facility] Branch Medications Ordered Filled Start [...] 0845, Until Discontinu ed, Routine amLODIPine Yes [id number] 10mg Take 1 Univers 10 mg 3-07 tablet by ity of tablet 00:00: mouth [place] 00 daily. Medical Branch clotrimazol 0 Yes [id number] Apply to Univers e 1 % 3-07 face/ears, ity of topical 00:00: armpits, [place] cream 00 pannus and Medical back/any Branch other rash twice a day fluocinonid 0 Yes [id number] Apply to Univers e 0.05 % 3-07 scalp ity of solution 00:00: twice a [place] 00 day Medical Branch triamcinolo 0 Yes [id number] Apply to Univers ne 3-07 back, ity of acetonide 00:00: armpits [place] 0.1 % cream 00 and other Med ical affected Branch areas twice daily, please mix with clotrimazo le hydrOXYzine 0 Yes [id number] 10mg Take 1 Univers 10 mg 3-07 tablet by ity of tablet 00:00: mouth 2 00 (two) Medical times Branch daily. amLODIPine Yes [id number] 10mg Take 1 Univers 10 mg 3-07 tablet by ity of tablet 00:00: mouth 00 daily. Medical Branch clotrimazol 2020-0 Yes [id number] Apply to Univers e 1 % 3-07 face/ears, ity of topical 00:00: armpits, [place] cream 00 pannus and Medical back/any Branch other rash twice a day fluocinonid 2020-0 Yes [id number] Apply to Univers e 0.05 % 3-07 scalp ity of solution 00:00: twice a day Medical Branch triamcinolo 2020-0 Yes [id number] Apply to Univers ne 3-07 back, ity of acetonide 00:00: armpits [place] 0.1 % cream 00 and other Med ical affected Branch areas twice daily, please mix with clotrimazo le hydrOXYzine Yes [id number] 10mg Take 1 Univers 10 mg 3-07 tablet by ity of tablet 00:00: mouth 2 (two) Medical times Branch daily. amLODIPine Yes [id number] 10mg Take 1 Univers 10 mg 3-07 tablet by ity of tablet 00:00: mouth 00 daily. Medical Branch clotrimazol 0 Yes [id number] Apply to Univers e 1 % 3-07 face/ears, ity of topical 00:00: armpits, [place] cream 00 pannus and Medical back/any Branch other rash twice a day fluocinonid 2020-0 Yes [id number] Apply to Univers e 0.05 % 3-07 scalp ity of solution 00:00: twice a [place] 00 day Medical Branch triamcinolo 2020-0 Yes [id number] Apply to Univers ne 3-07 back, ity of acetonide 00:00: armpits [place] 0.1 % cream 00 and other Med ical affected Branch areas twice daily, please mix with clotrimazo le hydrOXYzine 2021-0 Yes [id number] 10mg Take 1 Univers 10 mg 3-07 tablet by ity of tablet 00:00: mouth 2 [place] 00 (two) Medical times Branch daily. amLODIPine Yes [id number] 10mg Take 1 Univers 10 mg 3-07 tablet by ity of tablet 00:00: mouth [place] 00 daily. Medical Branch clotrimazol Yes [id number] Apply to Univers e 1 % 3-07 face/ears, ity of topical 00:00: armpits, [place] cream 00 pannus and Medical back/any Branch other rash twice a day fluocinonid 0 Yes [id number] Apply to Univers e 0.05 % - scalp ity of solution 00:00: twice a [place] 00 day Medical Branch triamcinolo Yes [id number] Apply to Univers ne 3-07 back, ity of acetonide 00:00: armpits [place] 0.1 % cream 00 and other Med ical affected Branch areas twice daily, please mix with clotrimazo le hydrOXYzine Yes [id number] 10mg Take 1 Univers 10 mg 3-07 tablet by ity of tablet 00:00: mouth 2 [place] 00 (two) Medical times Branch daily. cephALEXin 2020-2020- No [id number] 500mg Take 1 Univers 500 mg 3-04 14- capsule by ity of capsule 00:00: 05:59 mouth [place] 00 :00 every 6 Medical (six) Branch hours for 3 days. cephALEXin 2020-0 202- No [id number] 500mg Take 1 Univers 500 mg 3-04 14-11 capsule by ity of capsule 00:00: 05:59 mouth [place] 00 :00 every 6 Medical (six) Branch hours for 3 days. hydrOXYzine 2020-0 2020- No [id number] 10mg Take 1 Univers 10 mg 3-04 [...] IV [place] 500 mL 00 :00 Piggyback, [facility] ONCE, 1 Branch dose, Fri12/15/20 at 1000, STAT HYDROmorpho Yes 4mg 4 mg, Unive rs ne 12-15 Oral, BID, ity of (DILAUDID) 15:30: First dose [place] tablet 4 mg 00 (after Medica l last Branch modificati on) on Fri12/15/20 at 0930, Until Discontinu ed, Routine amLODIPine 2020- No [id number] 10mg Take 1 Univers 10 mg 12-15 tablet by ity of tablet 00:00: 00:00 mouth [place] 00 :00 daily. Medical Branch HYDROmorpho 2020- No 1mg 1 mg, Univ ers ne 12-14 Oral, ity of (DILAUDID) 17:35: 15:18 Q6HPRN, [place] tablet 1 mg 30 :06 Starting Medi jose c [facility] 12/14/20 Branch at 1135, Until Fri12/15/20 at 0918, Routine, Pain (scale 7-10) hydrOXYzine Yes 10mg 10 mg, Univ ers (ATARAX) 12-14 Oral, BID, ity o f tablet 10 17:30: First dose [place] mg 00 on [facility] Medical 12/14/20 at Branch 1130, Until Discontinu ed, Routine lisinopriL Yes 5mg 5 mg, Univer s (PRINIVIL,Z 12-14 Oral, ity of ESTRIL) 17:30: DAILY, [place] tablet 5 mg 00 First dose Me dical on [facility] Branch 12/14/20 at 1130, Until Discontinu ed, Routine triamcinolo 2020- No [id number] Apply to [facility] ne 12-14 back, ity of acetonide 00:00: 00:00 armpits [place] 0.1 % cream 00 :00 and other Med ical affected Branch areas twice daily, please mix with clotrimazo le clotrimazol 2020- No [id number] Apply to Univers e 1 % 12-14 face/ears, ity of topical 00:00: 00:00 armpits, [place] cream 00 :00 pannus and Medical back/any Branch other rash twice a day fluocinonid 2020- No [id number] Apply to Univers e 0.05 % 12-14 scalp ity of solution 00:00: 00:00 twice a [place] 00 :00 day Medical Branch hydrOXYzine 2020- No [id number] 10mg Take 1 Univers 10 mg 12-14 [...] 1 [place] injection 4 00 :00 dose, [facility] ical mg 12/12/20 at Branch 2300, Routine traMADoL 2020- No 50mg 50 mg, Univer s (ULTRAM) 12-13 03-03 Oral, ity of tablet 50 03:45: 03:34 ONCE, 1 [place] mg 00 :00 dose, [facility] 12/12/20 at Branch 2145, Routine insulin Yes 15U 15 Units, [facility] rs glargine 12-12 Subcutaneo ity o f (LANTUS 15:00: [place], DAILY, [place] U-100) 00 First dose Medical injection on [facility] 15 Units 12/12/20 at 0900, Until Discontinu ed hydrOXYzine 2020- No 10mg 10 mg, Uni vers (ATARAX) 12-12 03-02 Oral, ity of tablet 10 08:15: 07:33 ONCE, 1 [place] mg 00 :00 dose, [facility] 12/12/20 at Branch 0215, Routine mirtazapine Yes 7.5mg 7.5 mg, Un toi (REMERON) 3-02 Oral, QHS, ity of tablet 7.5 03:00: First dose [place] mg 00 on [facility] 12/11/20 at Branch 2100, Until Discontinu ed, Routine venlafaxine Yes 300mg 300 mg, Un toi XR (EFFEXOR 3-02 Oral, QHS, it y of XR) 24 hr 03:00: First dose [place] capsule 300 00 on [facility] Medica l mg 12/11/20 at [...] ed, Routine insulin Yes 5U 5 Units, [facility] s lispro 12-11 Subcutaneo ity of (human) 18:00: us, TID [place] (HumaLOG 00 MEALS, Medical U-100) First dose Branch injection 5 on Fri Units 12/11/20 at 1200, Until Discontinu ed Polyethylen Yes 17g 17 g, [facility] rs e Glycol 12-11 Oral, ity of 3350 17:47: [id number], [place] (MIRALAX) 05 Starting Medica l powder [...]
Duration of therapy: 72 hours sennosides- Yes [id number] 1{tbl} Take 1 Univers docusate 2-09 tablet by ity of sodium 00:00: mouth 2 [place] 8.6-50 mg 00 (two) Medical per tablet times Branch daily. hydrocortis Yes [id number] Apply to [facility] one 2.5 % 11-21 affected ity of cream 00:00: area(s) 2 [place] 00 (two) Medical times Branch daily. blood sugar Yes [id number] Use to [facility] diagnostic 11-21 check ity of (FREESTYLE 00:00: blood [place] LITE 00 glucose Medical STRIPS) 4-5 times Branch strip daily. Polyethylen Yes [id number] 17g Take 1 Univers e Glycol 2-09 Packet by ity of 3350 17 00:00: mouth [place] gram powder 00 every 24 Medi jose c (twenty-fo Branch ur) hours as needed for Constipati on. sennosides- Yes [id number] 1{tbl} Take 1 Univers docusate 2-09 tablet by ity of sodium 00:00: mouth 2 [place] 8.6-50 mg 00 (two) Medical per tablet times Branch daily. hydrocortis 2020-0 Yes [id number] Apply to Univers one 2.5 % 2-09 affected ity of cream 00:00: area(s) 2 [place] 00 (two) Medical times Branch daily. blood sugar 2020-0 Yes [id number] Use to [facility] diagnostic 11-21 check ity of (FREESTYLE 00:00: blood [place] LITE 00 glucose Medical STRIPS) 4-5 times Branch strip daily. Polyethylen 2020-0 Yes [id number] 17g Take 1 Univers e Glycol 2-09 Packet by ity of 3350 17 00:00: mouth [place] gram powder 00 every 24 Medi jose c (twenty-fo Branch ur) hours as needed for Constipati on. sennosides- 2020-0 Yes [id number] 1{tbl} Take 1 Univers docusate 2-09 tablet by ity of sodium 00:00: mouth 2 [place] 8.6-50 mg 00 (two) Medical per tablet times Branch daily. hydrocortis 2020-0 Yes [id number] Apply to Univers one 2.5 % 2-09 affected ity of cream 00:00: area(s) 2 [place] 00 (two) Medical times Branch daily. blood sugar 2020-0 Yes [id number] Use to [facility] diagnostic 11-21 check ity of (FREESTYLE 00:00: blood [place] LITE 00 glucose Medical STRIPS) 4-5 times Branch strip daily. Polyethylen 2020-0 Yes [id number] 17g Take 1 Univers e Glycol 2-09 Packet by ity of 3350 17 00:00: mouth [place] gram powder 00 every 24 Medi jose c (twenty-fo Branch ur) hours as needed for Constipati on. sennosides- 2020-0 Yes [id number] 1{tbl} Take 1 Univers docusate 2-09 tablet by ity of sodium 00:00: mouth 2 [place] 8.6-50 mg 00 (two) Medical per tablet times Branch daily. hydrocortis 2020-0 Yes [id number] Apply to Univers one 2.5 % 2-09 affected ity of cream 00:00: area(s) 2 [place] 00 (two) Medical times Branch daily. blood sugar Yes [id number] Use to [facility] diagnostic 11-21 check ity of (FREESTYLE 00:00: blood [place] LITE 00 glucose Medical STRIPS) 4-5 times Branch strip daily. Polyethylen Yes [id number] 17g Take 1 Univers e Glycol 11-21 Packet by ity of 3350 17 00:00: mouth [place] gram powder 00 every 24 Medi jose c (twenty-fo Branch ur) hours as needed for Constipati on. Insulin 2020- No [id number] 15U inject 15 Univers Glargine 11-21 Units ity of (LANTUS 00:00: 05:59 [place] SOLOSTAR 00 :00 skin every Medic al U-100 morning Branch INSULIN) for 30 100 unit/mL days. (3 mL) injection venlafaxine 2020- No [id number] 150mg Take 1 Univers XR 150 mg 11-21 capsule by ity of 24 hr 00:00: 05:59 mouth 3 [place] capsule 00 :00 (three) Medical times Branch daily for 30 days. Insulin 2020- No [id number] 15U inject 15 Univers Glargine 11-21 Units ity of (LANTUS 00:00: 05:59 [place] the [place] SOLOSTAR 00 :00 skin every Medic al U-100 morning Branch INSULIN) for 30 100 unit/mL days. (3 mL) injection venlafaxine 2020- No [id number] 150mg Take 1 Univers XR 150 mg 11-21 capsule by ity of 24 hr 00:00: 05:59 mouth 3 [place] capsule 00 :00 (three) Medical times Branch daily for 30 days. triamcinolo 2020- No [id number] Apply to [facility] ne 11-21 area(s) 2 ity of acetonide 00:00: 00:00 (two) [place] 0.1 % cream 00 :00 times Medical daily. Branch cephALEXin 2020- No [id number] 1000mg Take 2 Univers 500 mg 11-21 capsules ity of capsule 00:00: 00:00 by mouth 3 [place] 00 :00 (three) Medical times Branch daily. doxycycline 2020- No [id number] 100mg Take 1 Univers hyclate 100 11-21 capsule by i ty of mg capsule 00:00: 00:00 mouth [place] 00 :00 every 12 Medical (twelve) Branch hours. lactobacill 2020- No [id number] 1{tbl} Take 1 Univers us 11-21 tablet by ity of acidophilus 00:00: 00:00 mouth 2 [place] 25 million 00 :00 (two) Medical cell -100 times Branch mg captab daily. bisacodyL 2020- No [id number] 10mg Insert 1 Univers 10 mg 11-21 Suppositor ity of suppository 00:00: 00:00 y into [place] as 00 :00 rectum at Medical bedtime as Branch needed for Constipati on. ALPRAZolam 2020- No [id number] .25mg Take 1 Univers (XANAX) 11-21 tablet by ity of 0.25 mg 00:00: 00:00 mouth 2 [place] tablet 00 :00 (two) Medical times Branch daily. hydrOXYzine 2020- No [id number] 20mg Take 2 Univers 10 mg 11-21 [...] ity of (LANTUS 01:13: under the [place] SOLOSTPA) 36 skin. Medical 100 unit/mL Branch (3 [...] Units ity of (NOVOLOG 01:13: under the [facility] s FLEXPEN SC) 36 skin. Medical Branch [...] 34 :00 Medical Branch hydrocortis 2019- Yes [id number] Apply to Univers one 2.5 % 1-11 affected ity of cream 00:00: area(s) 2 [place] 00 (two) Medical times Branch daily. hydrOXYzine 2019- Yes [id number] 20mg Take 2 Univers 10 mg 1-11 tablets by ity of tablet 00:00: mouth [place] 00 every 8 Medical (eight) Branch hours as needed for Itching or Anxiety. Polyethylen 2019- Yes [id number] 17g Take 1 Univers e Glycol 1-11 Packet by ity of 3350 17 00:00: mouth [place] gram powder 00 every 24 Medi jose c (twenty-fo Branch ur) hours as needed for Constipati on. hydrocortis 2019- Yes [id number] Apply to Univers one 2.5 % 1-11 affected ity of cream 00:00: area(s) 2 [place] 00 (two) Medical times Branch daily. hydrOXYzine 2019- Yes [id number] 20mg Take 2 Univers 10 mg 1-11 tablets by ity of tablet 00:00: mouth [place] 00 every 8 Medical (eight) Branch hours as needed for Itching or Anxiety. Polyethylen 2019- Yes [id number] 17g Take 1 Univers e Glycol 1-11 Packet by ity of 3350 17 00:00: mouth [place] gram powder 00 every 24 Medi jose c (twenty-fo Branch ur) hours as needed for Constipati on. hydrocortis 2019- Yes [id number] Apply to Univers one 2.5 % 1-11 affected ity of cream 00:00: area(s) 2 [place] 00 (two) Medical times Branch daily. hydrOXYzine 2019- Yes [id number] 20mg Take 2 Univers 10 mg 1-11 tablets by ity of tablet 00:00: mouth [place] 00 every 8 Medical (eight) Branch hours as needed for Itching or Anxiety. Polyethylen 2020- Yes [id number] 17g Take 1 Univers e Glycol 1-11 Packet by ity of 3350 17 00:00: mouth [place] gram powder 00 every 24 Medi jose c (twenty-fo Branch ur) hours as needed for Constipati on. hydrocortis 2019- Yes [id number] Apply to Univers one 2.5 % 1-11 affected ity of cream 00:00: area(s) 2 [place] 00 (two) Medical times Branch daily. hydrOXYzine 2019- Yes [id number] 20mg Take 2 Univers 10 mg 1-11 tablets by ity of tablet 00:00: mouth [place] 00 every 8 Medical (eight) Branch hours as needed for Itching or Anxiety. Polyethylen 2019- Yes [id number] 17g Take 1 Univers e Glycol 1-11 Packet by ity of 3350 17 00:00: mouth [place] gram powder 00 every 24 Medi jose c (twenty-fo Branch ur) hours as needed for Constipati on. hydrocortis 2019- Yes [id number] Apply to Univers one 2.5 % 1-11 affected ity of cream 00:00: area(s) 2 [place] (two) Medical times Branch daily. hydrOXYzine 2019- Yes [id number] 20mg Take 2 Univers 10 mg 1-11 tablets by ity of tablet 00:00: mouth [place] 00 every 8 Medical (eight) Branch hours as needed for Itching or Anxiety. Polyethylen 2019- Yes [id number] 17g Take 1 Univers e Glycol 1-11 Packet by ity of 3350 17 00:00: mouth [place] gram powder 00 every 24 Medi jose c (twenty-fo Branch ur) hours as needed for Constipati on. hydrocortis 2019- Yes [id number] Apply to Univers one 2.5 % 1-11 affected ity of cream 00:00: area(s) 2 [place] 00 (two) Medical times Branch daily. hydrOXYzine 2019- Yes [id number] 20mg Take 2 Univers 10 mg 1-11 tablets by ity of tablet 00:00: mouth [place] 00 every 8 Medical (eight) Branch hours as needed for Itching or Anxiety. Polyethylen 2020- Yes [id number] 17g Take 1 Univers e Glycol 1-11 Packet by ity of 3350 17 00:00: mouth [place] gram powder 00 every 24 Medi jose c (twenty-fo Branch ur) hours as needed for Constipati on. hydrocortis 2019-10 Yes [id number] Apply to Univers one 2.5 % 1-11 affected ity of cream 00:00: area(s) 2 [place] 00 (two) Medical times Branch daily. hydrOXYzine 2019-10 Yes [id number] 20mg Take 2 Univers 10 mg 1-11 tablets by ity of tablet 00:00: mouth [place] 00 every 8 Medical (eight) Branch hours as needed for Itching or Anxiety. Polyethylen 2019-10 Yes [id number] 17g Take 1 Univers e Glycol 1-11 Packet by ity of 3350 17 00:00: mouth [place] gram powder 00 every 24 Medi jose c (twenty-fo Branch ur) hours as needed for Constipati on. triamcinolo 2019-10 2020- No [id number] Apply to [facility] 10-23 area(s) 2 ity of acetonide 00:00: 05:59 (two) [place] 0.1 % cream 00 :00 times Medical daily for Branch 14 days. triamcinolo 2019-10 2020- No [id number] Apply to [facility] 10-23 area(s) 2 ity of acetonide 00:00: 05:59 (two) [place] 0.1 % cream 00 :00 times Medical daily for Branch 14 days. triamcinolo 2019-10 2020- No [id number] Apply to [facility] 10-23 area(s) 2 ity of acetonide 00:00: 05:59 (two) [place] 0.1 % cream 00 :00 times Medical daily for Branch 14 days. KCL 2019-10 2020- No 40meq 40 mEq, Univers (KLOR-CON 1- 11-10 Oral, ONCE ity of M20) tablet 16:15: 16:23 NOW, 1 [place] 40 mEq 00 :00 dose, [facility] 08/22/20 Branch at 1015, Routine HYDROmorpho 2019-10 Yes 1mg 1 mg, Unive rs ne 1- Oral, ity of (DILAUDID) 15:07: Q6HPRN, [place] tablet 1 mg 53 Starting Medi jose c [facility] Branch 08/22/20 at 0907, Until Discontinu ed, [...] 17:39: Q8HPRN, [place] mg 12 Starting Medical [facility] Branch 08/21/20 at 1139, Until [...] 25 59 :43 Starting Medica l mg [facility] 08/21/20 at 0656, Until [facility] 08/21/20 at 1139, Routine, Itching, Mild Rash, Congestion /Allergies , alternate with hydroxyzin e hydrOXYzine 2019-10 2020- No 10mg 10 mg, Uni vers (ATARAX) 10-21 Oral, ity of tablet 10 10:20: 12:57 Q6HPRN, [place] mg 22 :12 Starting [facility] 08/21/20 at 0420, Until [facility] 08/21/20 at 0657, Routine, Itching, Anxiety Sliding 2019-10 Yes Subcutaneo Univ ers Scale 10-21 us, Q4H, ity of Insulin - 10:00: First dose [place] Aspart 00 (after Medical (NOVOLOG) + last Branch Fsbg modificati Testing on) on [facility] 08/21/20 at 0400, Until Discontinu ed, Routine lidocaine 5 2019-10 2020- No Topical, U nivers % ointment 10-21 ONCE, 1 ity o f 09:30: 09:14 dose, [facility] 00 :00 08/21/20 at [facility] 0330, Branch Routine Polyethylen 2019-10 Yes 17g 17 g, [facility] rs e Glycol 10-21 Oral, ity of 3350 08:29: [id number], [place] (MIRALAX) 09 Starting Medica l powder 17 g [facility] 08/21/20 at 0229, Until Discontinu ed, Routine, Constipati on lanolin 2019-10 Yes Topical, [facility] alcohol-mo- 10-21 PRN, ity of w.pet-ceres 08:26: Starting [place] (EUCERIN) 30 [facility] cream 08/21/20 at Branch 0226, Until Discontinu ed, Routine, Dermatitis /Rash ALPRAZolam 2019-10 Yes .25mg 0.25 mg, Un toi (XANAX) 10-21 Oral, ity of tablet 0.25 08:25: BIDPRN, [place] mg 41 Starting [facility] 08/21/20 at 0225, Until Discontinu ed, Routine, [...] hours. Branch blood sugar Yes Use to [facility] [place] ers diagnostic -25 check ity of (FREESTYLE 00:00: blood [place] LITE 00 glucose Medical STRIPS) 4-5 times Branch strip daily. blood sugar Yes Use to [facility] [place] ers diagnostic 4-25 check ity of (FREESTYLE 00:00: blood [place] LITE 00 glucose Medical STRIPS) 4-5 times Branch strip daily. blood sugar Yes Use to [facility] [place] ers diagnostic -25 check ity of (FREESTYLE 00:00: blood [place] LITE 00 glucose Medical STRIPS) 4-5 times Branch strip daily. blood sugar Yes Use to [facility] [place] ers diagnostic 4-25 check ity of (FREESTYLE 00:00: blood [place] LITE 00 glucose Medical STRIPS) 4-5 times Branch strip daily. blood sugar Yes Use to [facility] [place] ers diagnostic 4-25 check ity of (FREESTYLE [...] 148 mm[Hg] Univer sity of pressure [facility] Branch Diastolic blood 2021-08-22 13:00:00 84 mm[Hg] Unive rsity of pressure [facility] Heart rate 2021-08-22 13:00:00 103 /min [facility] Respiratory rate 2021-08-22 13:00:00 18 /min Univ ersity of [facility] Oxygen saturation in 2021-08-22 13:00:00 95 /min University of Arterial blood by [facility] Pulse oximetry Branch Body temperature 2021-08-22 12:22:00 36.72 [facility] [place] ersity of [facility] Branch Systolic blood 2020-12-17 18:35:00 139 mm[Hg] Univer sity of pressure [place] [facility] Diastolic blood 2020-12-17 18:35:00 87 mm[Hg] Unive rsity of pressure [place] [facility] [place] Heart rate 2020-12-17 18:35:00 110 /min [facility] Body temperature 2020-12-17 18:35:00 37.72 [place] Univ ersity of [place] [facility] Respiratory rate 2020-12-17 18:35:00 18 /min Univ ersity of [place] [facility] Oxygen saturation in 2020-12-17 18:35:00 93 /min University of Arterial blood by [place] [facility] Pulse oximetry Branch Body height 2020-12-12 08:21:00 180.3 cm [facility] Body weight 2020-12-12 08:21:00 103.42 kg [facility] BMI 2020-12-12 08:21:00 31.80 kg/m2 [facility] Systolic blood 2020-12-17 18:35:00 139 [...] /min [facility] by [facility] jose c Pulse oximetry Branch Body height [...] /min [facility] blood by [facility] jose c Pulse oximetry Branch Body weight [...] Branch Respiratory rate 2020-08-23 19:27:00 18 /min [facility] Oxygen saturation in 2020-08-23 19:27:00 93 /min University Arterial blood by [facility] Pulse oximetry [place] Body weight 2020-08-21 07:20:00 104.962 kg [facility] BMI 2020-08-21 07:20:00 32.27 kg/m2 [facility] Procedures Procedure Date / Time Performing Clinician Source Performed POCT GLUCOSE (AUTOMATED) 2020-12-17 15:42:00 [facility]OL[facility] PANEL 2020-12-17 10:45:00 Paul Bean [facility] (NA, K, CL, CO2, GLUCOSE, [facility] BUN, CREATININE, CA) CBC WITH DIFF 2020-12-17 10:45:00 Paul Bean [facility] POCT GLUCOSE (AUTOMATED) 2020-12-17 02:36:00 HarrisonFavio davisonal [facility] TIBIA FIBULA 2 VW LEFT 2020-12-16 23:38:00 [facility] PO[facility]SE (AUTOMATED) 2020-12-16 23:20:00 Harrison, Premal G Uni versity of [facility] POCT GLUCOSE (AUTOMATED) 2020-12-16 20:10:00 Harrison, Premal G Uni versity of [facility] POCT GLUCOSE (AUTOMATED) 2020-12-16 14:43:00 Harrison[facility] METABOLIC PANEL 2020-12-16 13:51:00 Paul Bean [facility] (NA, K, CL, CO2, GLUCOSE, [facility] BUN, CREATININE, CA) CBC WITH DIFF 2020-12-16 13:51:00 Paul Bean [facility] POCT GLUCOSE (AUTOMATED) 2020-12-16 04:00:00 Harrison, Premal G Uni versity of [facility] POCT GLUCOSE (AUTOMATED) 2020-12-16 00:14:00 Harrison, Premal G Uni versity of [facility] CT CHEST PULMONARY 2020-12-15 22:29:38 Paul Bean [facility] ANGIOGRAM [facility] POCT GLUCOSE (AUTOMATED) 2020-12-15 19:26:00 Harrison, Premal G Uni versity of [facility] POCT GLUCOSE (AUTOMATED) 2020-12-15 15:13:00 Harrison, Premal G Uni versity of [facility] HB ECG ROUTINE & RHYTHM 2020-12-15 14:25:27 Cailin Romo [facility] MAGNESIUM 2020-12-15 12:01:00 Paul Bean Sivakumar [facility] BASIC METABOLIC PANEL 2020-12-15 12:01:00 Paul Bean [facility] (NA, K, CL, CO2, GLUCOSE, [facility] BUN, CREATININE, CA) CBC WITH DIFF 2020-12-15 12:01:00 Paul Bean Sivakumar [facility] POCT GLUCOSE (AUTOMATED) 2020-12-15 03:57:00 Harrison, Premal G Uni versity of [facility] POCT GLUCOSE (AUTOMATED) 2020-12-14 23:31:00 Harrison, Premal G Uni versity of [facility] POCT GLUCOSE (AUTOMATED) 2020-12-14 19:08:00 Harrison, Premal G Uni versity of [facility] POCT GLUCOSE (AUTOMATED) 2020-12-14 15:11:00 Harrison, Premal G Uni versity of [facility] POCT GLUCOSE (AUTOMATED) 2020-12-14 02:36:00 Harrison, Premal G Uni versity of [facility] POCT GLUCOSE (AUTOMATED) 2020-12-13 23:32:00 Harrison, Premal G Uni versity of [facility] POCT GLUCOSE (AUTOMATED) 2020-12-13 18:08:00 Harrison, Premal G Uni versity of [facility] BASIC METABOLIC PANEL 2020-12-13 15:39:00 Paul Bean [facility] (NA, K, CL, CO2, GLUCOSE, [facility] BUN, CREATININE, CA) CBC WITH DIFF 2020-12-13 15:39:00 Paul Bean [facility] POCT GLUCOSE (AUTOMATED) 2020-12-13 14:06:00 Harrison[facility]UCOSE (AUTOMATED) 2020-12-13 03:07:00 Harrison, [facility] POCT GLUCOSE (AUTOMATED) 2020-12-12 23:52:00 Harrison, [facility] POCT GLUCOSE (AUTOMATED) 2020-12-12 20:28:00 Harrison, [facility]al [facility] POCT GLUCOSE (AUTOMATED) 2020-12-12 19:14:00 Harrison, [facility] PO[facility] GLUCOSE (AUTOMATED) 2020-12-12 14:33:00 Harrison, [facility]UM 2020-12-12 08:58:00 Paul Bean Sivakumar [facility] BASIC METABOLIC PANEL 2020-12-12 08:58:00 Paul Bean [facility] (NA, K, CL, CO2, GLUCOSE, [facility] BUN, CREATININE, CA) CBC WITH DIFF 2020-12-12 08:58:00 Paul Bean [facility] US ABDOMEN LIMITED 2020-12-12 06:32:26 Paul Bean [facility] POCT GLUCOSE (AUTOMATED) 2020-12-12 03:40:00 Hunter, Premal G Uni [facility] POCT GLUCOSE (AUTOMATED) 2020-12-12 00:06:00 Hunter, Premal G Uni [facility] XR HIPS 3 VW LEFT 2020-12-11 20:20:00 Paul Bean [facility] HB ECG ROUTINE & RHYTHM 2020-12-11 20:04:06 Cailin Romo [facility] VITAMIN B6, PLASMA 2020-12-11 19:17:00 Paul Bean [facility] POCT GLUCOSE (AUTOMATED) 2020-12-11 19:06:00 Rene Harrison [facility] CREATINE KINASE 2020-12-11 18:22:00 Clarisse Hannon [facility] VITAMIN B12, LEVEL 2020-12-11 18:22:00 Paul Bean [facility] FOLATE 2020-12-11 18:22:00 [facility] THYROID STIMULATING 2020-12-11 18:22:00 Cailin Romo [facility] HORMONE [facility] PROCALCITONIN 2020-12-11 18:22:00 [facility] VITAMIN B1 (THIAMINE), 2020-12-11 18:22:00 Paul Bean Sivakumar [facility] WHOLE BLOOD [facility] CT HEAD WO CONTRAST 2020-12-11 14:07:35 Sweetie Stout [facility] URINALYSIS 2020-12-11 13:44:00 Singer [facility] URINE CULTURE 2020-12-11 13:44:00 Singer [facility] COVID-19 (ID NOW RAPID 2020-12-11 12:31:00 Paco Lacey [facility] TESTING) [facility] LAB ONLY COVID 2020-12-11 12:31:00 Singer [facility] XR CHEST 1 VW 2020-12-11 12:07:24 Singer [facility] BLOOD CULTURE SCREEN 2020-12-11 12:02:00 Paco Lacey [facility] Medical [place] MAGNESIUM 2020-12-11 12:02:00 Paul Bean Sivakumar [facility] FERRITIN SERUM 2020-12-11 12:02:00 Darnell Beanaham Sivakumar [facility] COMP. METABOLIC PANEL 2020-12-11 12:02:00 Paco Lacey [facility] ([id number]) Medical Branch CBC WITH DIFF 2020-12-11 12:02:00 Singer [facility] LACTIC ACID WHOLE BLOOD 2020-12-11 12:02:00 Paco Lacey [facility] BLOOD CULTURE SCREEN 2020-12-11 11:42:00 Paco Lacey [facility] EMERGENCY SERVICES 2020-12-11 06:01:00 Doctor Tabitha [facility] AGREEMENTS AND [place] [facility] AUTHORIZATIONS HOSPITAL ADMISSION 2020-12-11 06:01:00 Doctor Tabitha [facility] Name [facility] HEALTH - OTHER 2020-11-11 06:01:[address] [facility] Name Medical [facility] HEALTH - [facility] 2020-10-30 06:01:[address] [facility] Name [facility] EXTERNAL PROVIDER RECORDS 2020-09-01 06:01:00 Doctor Tabitha [facility] POCT GLUCOSE (AUTOMATED) 2020-08-23 18:09:00 Kelly Washington [facility] POCT GLUCOSE (AUTOMATED) 2020-08-23 14:14:00 Kelly Washington [facility] MAGNESIUM 2020-08-23 11:18:00 Allen, [facility] BASIC METABOLIC PANEL 2020-08-23 11:18:00 [facility] (NA, K, CL, CO2, GLUCOSE, Medica l Branch BUN, CREATININE, CA) CBC WITH DIFF 2020-08-23 11:18:00 [facility] POCT GLUCOSE (AUTOMATED) 2020-08-23 10:21:00 [facility] ([facility]OMATED) 2020-08-23 05:55:00 Kelly Washingtonity [facility] POCT GLUCOSE (AUTOMATED) 2020-08-23 03:00:00 Kelly Washingtonity [facility] POCT GLUCOSE (AUTOMATED) 2020-08-22 23:38:00 Kelly [facility] POCT [facility]UCOSE (AUTOMATED) 2020-08-22 19:04:00 [facility] POCT GLUCOSE (AUTOMATED) 2020-08-22 13:49:00 Kelly Washington [facility] MAGNESIUM 2020-08-22 10:10:00 Allen [facility] HEPATIC FUNCTION PANEL 2020-08-22 10:10:00 Jill Aguila [facility] ([id number]) (ALB,T.PRO,BILI Medical Branch T,BU/BC,ALT,AST,ALK PHOS) BASIC METABOLIC PANEL 2020-08-22 10:10:00 Allen [facility] (NA, K, CL, CO2, GLUCOSE, Medica l Branch BUN, CREATININE, CA) LIPID PANEL ([id number])(TOTAL 2020-08-22 10:10:00 Allen [facility] TRIGLYCERID[facility], HDL) CBC WITH DIFF 2020-08-22 10:10:00 Allen [facility] POCT GLUCOSE (AUTOMATED) 2020-08-22 10:10:00 Kelly Washington [facility] POCT GLUCOSE (AUTOMATED) 2020-08-22 07:13:00 Kelly Washington [facility] POCT GLUCOSE (AUTOMATED) 2020-08-22 02:24:00 Kelly Washington [facility] POCT GLUCOSE (AUTOMATED) 2020-08-21 23:40:00 Kelly Washington [facility] POCT GLUCOSE (AUTOMATED) 2020-08-21 18:10:00 Kelly Washington [facility] POCT GLUCOSE (AUTOMATED) 2020-08-21 13:39:00 Kelly Washington [facility] ETHANOL 2020-08-21 12:35:00 Jos Quiroz [facility] ACTIVATED PARTIAL 2020-08-21 12:35:00 Padmini [facility] THRMPLAS [facility] GALV ONLY - SYPHILIS 2020-08-21 12:35:[address] [facility] IGG/IGM [facility] LACTATE DEHYDROGENASE 2020-08-21 10:09:00 Ramya, [facility] GALV/CLC ONLY - URINE 2020-08-21 10:09:00 Jos Quiroz [facility] DRUG (IMMUNOASSAY) - 4 ER Medica l Branch PANEL URINALYSIS 2020-08-21 10:09:00 Ramya, [facility] URINE CULTURE 2020-08-21 10:09:00 Allen, [facility] PROCALCITONIN 2020-08-21 10:09:00 Ramya, [facility] POCT GLUCOSE (AUTOMATED) 2020-08-21 09:41:00 eKlly Washington [facility] PROTHROMBIN TIME / INR 2020-08-21 08:32:00 [facility] ACTIVATED PARTIAL 2020-08-21 08:32:00 Allen, [facility] THRMPLAS [facility] C-REACTIVE PROTEIN 2020-08-21 08:31:00 Allen, [facility] HEPATIC FUNCTION PANEL 2020-08-21 08:31:00 Ramya, [facility] ([id number]) (ALB,T.PRO,BILI Medical [place] T,BU/BC,ALT,AST,ALK PHOS) BASIC METABOLIC PANEL 2020-08-21 08:31:00 Allen, [facility] (NA, K, CL, CO2, [facility] [place] BUN, CREATININE, CA) SEDIMENTATION RATE 2020-08-21 08:31:00 Allen, [facility] CBC WITH DIFF 2020-08-21 08:31:00 Ramya, [facility] GLYCOSYLATED HEMOGLOBIN 2020-08-21 08:31:00 Allen, [facility] (A1C) [facility] HIV 1/2 AG-AB WITH REFLEX 2020-08-21 08:31:00 Kelly Washington [facility] COVID-19 (ID NOW RAPID 2020-08-21 08:20:00 Ramya, [facility] TESTING) Medical Branch LAB ONLY COVID 2020-08-21 08:20:00 Ramya, [facility] Encounters Start End Encounter Admission Attending Care Care Encounter Source Date/Time Date/Time Type Type Clinicians Facility Department ID 2020-08-21 Inpatient Shayy WASHINGTON [facility] [id number] Univers 01:07:00 KELLY cantu [facility] 2021-08-22 2021-08-22 [id number] Univers 06:21:00 08:02:00 SWEETIE cantu [facility] 2021-08-22 2021-08-22 [facility] [id number] Univers 06:21:00 08:02:00 Sweetie OREN [id number] i ty of [place] [id number] [facility] 084 [place] 2021-08-09 2021-08-09 Outpatient ZAKI, [facility] [id number] [facility] 10:27:03 10:27:03 ADRIANA lopez of Medicin e 2020-12-28 2020-12-28 Telephone [facility] [id number] 00:00:00 00:00:00 Calvin H PRIMARY [id number] CARE 4.2.7.2.686 PAVILLION [id number] 2020-12-28 2020-12-28 Telephone [facility] [id number] Univers 00:00:00 00:00:00 Calvin H PRIMARY [id number] it y of CARE 4.2.7.2.686 [facility] [id number] In dical 220 Branch 2020-12-19 2020-12-19 Transition Tuan Peters 1.2.840.114 [id number] 00:00:00 00:00:00 of Care Ruchi Braswell [id number] [place] 4.2.7.2.686 [id number] 2020-12-19 2020-12-19 Transition Tuan Peters 1.2.840.114 [id number] Univers 00:00:00 00:00:00 of Care Ruchi Braswell [id number] it y of [place] [id number] [facility] 403 Branch 2020-12-11 2020-12-17 [facility] Paco Lacey 1.2.840.1 [id number] 05:11:00 16:00:00 Encounter Rene Harrison Monique [id number] [facility] 4.2.7.2.686 [id number] [facility] 2020-12-11 2020-12-17 [facility] 1.2.840.[id number] [facility] 05:11:00 16:00:00 Encounter Rene Harrison Monique [id number] ity of [facility] 4.2.7.2.686 [place] [id number] [place] 813926 [place] 2020-12-11 2020-12-11 Emergency X [facility] ERT [id number] Univers 05:11:00 05:11:00 [facility] 2020-11-16 2020-11-16 Emergency X [facility] ERT [id number] Univers 09:31:00 09:31:00 [facility] 2020-11-11 2020-11-11 Orders Doctor BASILIA 1.2.840.114 [id number] 00:00:00 00:00:00 Only Unassigned, MONIQUE [id number] [place] [facility] 4.2.7.2.686 [id number] 2020-11-11 2020-11-11 Orders Doctor BASILIA 1.2.840.114 [id number] Univers 00:00:00 00:00:00 Only Unassigned, MONIQUE [id number] ity of [place] [facility] 4.2.7.2.686 Jeff as [id number] [facility] 009 Branch 2020-11-07 2020-11-07 Telephone Wilder [facility] [id number] 00:00:00 00:00:00 Angi Tobin 350.1.13.10 [place] 4.2.7.2.686 Professio [id number] [facility]9 [facility] 2020-11-07 2020-11-07 [facility] [id number] [facility] 00:00:00 00:00:00 Angi Tobin [id number] ity of [place] [phone] [place] 654329 [facility] 2020-10-30 2020-10-30 Orders Doctor BASILIA 1.2.840.114 [id number] 00:00:00 00:00:00 Only Unassigned, MONIQUE 350.1.13.10 [place] [facility] 4.2.7.2.686 [id number] [facility] 2020-10-30 2020-10-30 Orders Doctor BASILIA 1.2.840.114 [id number] Univers 00:00:00 00:00:00 Only Unassigned, MONIQUE 350.1.13.10 ity of [place] [facility] 4.2.7.2.686 Jeff as [id number] [address] 2020-09-26 2020-09-26 Telephone [facility] 1.2.840.114 [id number] 00:00:00 00:00:00 [facility] 350.1.13.10 CLINICS 4.2.7.2.686 [id number] [facility] 2020-09-26 2020-09-26 Telephone [facility] 1.2.840.114 [id number] Univers 00:00:00 00:00:00 [facility] 350.1.13.10 i ty of CLIN[place].2.[place] [id number] [address] 2020-09-01 2020-09-01 Orders Doctor BASILIA 1.2.840.114 [id number] 00:00:00 00:00:00 Only Unassigned, MONIQUE 350.1.13.10 [place] [facility] 4.2.7.2.686 [id number] [id number] 2020-09-01 2020-09-01 Orders Doctor CUI 1.2.840.114 [id number] Univers 00:00:00 00:00:00 Only Unassigned, MONIQUE 350.1.13.10 ity of [facility] 4.2.7.2.686 Jeff as [id number] [facility] 009 Branch 2020-08-25 2020-08-25 Transition Tuan Peters 1.2.840.114 [id number] 00:00:00 00:00:00 of Care Ruchi Braswell [id number] [place] 4.2.7.2.686 [id number] [facility] 2020-08-25 2020-08-25 Transition Tuan Peters 1.2.840.[id number] [facility] 00:00:00 00:00:00 of Care Ruchi Garciay 350.1.13.10 it y of [place]2.[place] [id number] [place] [address] Branch 2020-08-21 2020-08-23 [facility] Alyeen 1.2.840.114 [id number] 01:07:00 18:35:00 Encounter Kelly Amaya 350.1.13.10 [facility] 4.2.7.2.686 [id number] [facility] 2020-08-21 2020-08-23 [facility] 1. 2.840.[id number] [facility] 01:07:00 18:35:00 Encounter Mukul Gallardo 350.1.13. 10 ity [facility] 4.2.7.2.686 Jeff as [id number] [address] Results Test Description Test Time Test Comments Results Result Comments Source POCT GLUCOSE (AUTOMATED) 2020-12-17 15:43:35 Test Item Value Reference Range Interpretation Comme nts POCT GLU (test code = 3914213591) 129 mg/dL 70-110 H Lab Interpretation (test code = 11771-6) Abnormal [facility] METABOLIC PANEL (NA, K, CL, CO2, GLUCOSE, BUN, CREATININE, CA)2020-12-17 11:45:07 Test Item Value Reference Range Interpretation Comments NA (test code = 137 mmol/L 135-145 6682135756) K (test code = 3.5 mmol/L 3.5-5.0 8021341808) CL (test code = 103 mmol/L 98-108 5847981531) CO2 TOTAL (test code = 26 mmol/L 23-31 7985998640) AGAP (test code = 2-16 0880477831) BUN (test code = 11 mg/dL 7-23 2434339303) GLUCOSE (test code = 175 mg/dL 70-110 H 0919556509) CREATININE (test code = 0.62 mg/dL 0.60-1.25 7902746547) CALCIUM (test code = 9.0 mg/dL 8.6-10.6 9860320753) eGFR Calculation mL/min/1.73m2 (Non-) (test code = 9091408714) eGFR Calculation mL/min/1.73m2 () (test code = 3460227363) JAMES (test code = JAMES) Association of [...] tests). Lab Interpretation Abnormal (test code = 87733-8) [facility] WITH [id number] 11:07:27 Test Item Value Reference Range Interpretation [...] RDW-SD (test code = 45.2 fL 38.5-51.6 95256-2) RDW-CV (test code = 16.9 % 12.1-15.4 H 788-0) PLT (test code = See_Comment H [Automated 777-3) message] The sy stem which generated this result transmitted reference range : 150 - 328 10*3/ ?L. The reference r torito was not used to interpret this result as normal/abnormal . MPV (test code = 8.1 fL 9.8-13.0 L 60276-2) NRBC/100 WBC (test See_Comment [Automat ed code = 3100938704) message] The system which generated this result transmitted reference range : 0.0 - 10.0 /100 WBCs. The refer ence range was not u sed to interpret th is result as normal/abnormal . NRBC x10^3 (test code <0.01 See_Comment [Auto mated = 7112150015) message] The s ystem which generated this result transmitted reference range : 10*3/?L. The reference range was not used to interpret this result as normal/abnormal . GRAN MAT (NEUT) % 72.8 % (test code = 770-8) IMM GRAN % (test code 0.60 % = 8583235730) LYMPH % (test code = 18.4 % 736-9) MONO % (test code = 5.7 % 5905-5) EOS % (test code = 1.8 % 713-8) BASO % (test code = 0.7 % 706-2) GRAN MAT x10^3(ANC) 8.23 10*3/uL 1.99-6.95 H (test code = 9341451805) IMM GRAN x10^3 (test 0.07 10*3/uL 0.00-0.06 H code = 7675986155) LYMPH x10^3 (test code 2.08 10*3/uL 1.09-3.23 = 731-0) MONO x10^3 (test code 0.65 10*3/uL 0.36-1.02 = 742-7) EOS x10^3 (test code = 0.20 10*3/uL 0.06-0.53 711-2) BASO x10^3 (test code 0.08 10*3/uL 0.01-0.09 = 704-7) Lab Interpretation Abnormal (test code = 67630-5) [facility] 06:03:38 Test Item Value Reference Range Interpretation Comments POCT GLU (test code = 7644263635) 75 mg/dL 70-110 Lab Interpretation (test code = Normal 54575-8) [facility], [id number] 00:01:00 Test Item Value Reference Range Interpretation Comments VIT B6 (test code = 13.1 nmol/L 20.0-125.0 L INTERPRE TIVE 70777-7) INFORMATION: Vi tamin B6 (Pyridoxal 5-Phosphate) Pyridoxal 5'-phosphate me asured in a specimen collected follo wing an 8-hour or overnight fast accurately clara cates vitamin B6 nutritional sta tus. Non-fasting spe cimen concentration reflects recent vitamin intake. This test was develo ped and its perform ance characteristics determined by A [facility]. I t has not been cleare d or approved by the [place] Food and Drug Administration. This test was perfor med in a CLIA certifie d laboratory and is intended for cl inical purposes.Perfor med By: [address] [place] [id number] Director: Namrata Klein MD Lab Interpretation Abnormal (test code = 77399-6) [facility] TIBIA FIBULA 2 VW [id number] 23:57:09 Tricompartmental knee joint osteoarthrosis.XR TIBIA FIBULA [...] No acute fracture or dislocation.IMPRESSIONTricompartmental knee joint osteoarthrosis.[facility] GLUCOSE (AUTOMATED) 2020-12-16 23:27:00 Test Item Value Reference Range Interpretation Comments POCT GLU (test code = 1051197692) 114 mg/dL 70-110 H Lab Interpretation (test code = Abnormal 68835-6) [facility] GLUCOSE (AUTOMATED)2020-12-16 20:12:00 Test Item Value Reference Range Interpretation Comments POCT GLU (test code = 4995390790) 105 mg/dL 70-110 Lab Interpretation (test code = Normal 33607-6) [facility] GLUCOSE (AUTOMATED)2020-12-16 14:44:00 Test Item Value Reference Range Interpretation Comments POCT GLU (test code = 3147744206) 153 mg/dL 70-110 H Lab Interpretation (test code = Abnormal 64279-4) [facility] METABOLIC PANEL (NA, K, CL, CO2, GLUCOSE, BUN, CREATININE, CA)2020-12-16 14:23:00 Test Item Value Reference Range Interpretation Comments NA (test code = 138 mmol/L 135-145 7414192272) K (test code = 3.4 mmol/L 3.5-5.0 L 3898314649) CL (test code = 100 mmol/L 98-108 7456095924) CO2 TOTAL (test code = 31 mmol/L 23-31 9107057617) AGAP (test code = 2-16 6252554150) BUN (test code = 11 mg/dL 7-23 6190633839) GLUCOSE (test code = 162 mg/dL 70-110 H 0504960040) CREATININE (test code = 0.64 mg/dL 0.60-1.25 0510623748) CALCIUM (test code = 8.9 mg/dL 8.6-10.6 0606060940) eGFR Calculation mL/min/1.73m2 (Non-) (test code = 0000248505) eGFR Calculation mL/min/1.73m2 () (test code = 1467947514) JAMES (test code = JAMES) Association of [...] tests). Lab Interpretation Abnormal (test code = 80304-5) [facility] WITH [id number] 14:05:00 Test Item Value Reference Range Interpretation [...] RDW-SD (test code = 45.4 fL 38.5-51.6 63435-6) RDW-CV (test code = 17.0 % 12.1-15.4 H 788-0) PLT (test code = See_Comment H [Automated 777-3) message] The sy stem which generated this result transmitted reference range : 150 - 328 10*3/ ?L. The reference r torito was not used to interpret this result as normal/abnormal . MPV (test code = 8.0 fL 9.8-13.0 L 82520-8) NRBC/100 WBC (test See_Comment [Automat ed code = 9716874618) message] The system which generated this result transmitted reference range : 0.0 - 10.0 /100 WBCs. The refer ence range was not u sed to interpret th is result as normal/abnormal . NRBC x10^3 (test code <0.01 See_Comment [Auto mated = 1742658411) message] The s ystem which generated this result transmitted reference range : 10*3/?L. The reference range was not used to interpret this result as normal/abnormal . GRAN MAT (NEUT) % 70.0 % (test code = 770-8) IMM GRAN % (test code 0.70 % = 3015753794) LYMPH % (test code = 20.5 % 736-9) MONO % (test code = 7.1 % 5905-5) EOS % (test code = 1.0 % 713-8) BASO % (test code = 0.7 % 706-2) GRAN MAT x10^3(ANC) 9.44 10*3/uL 1.99-6.95 H (test code = 6537120628) IMM GRAN x10^3 (test 0.09 10*3/uL 0.00-0.06 H code = 5113851311) LYMPH x10^3 (test code 2.76 10*3/uL 1.09-3.23 = 731-0) MONO x10^3 (test code 0.96 10*3/uL 0.36-1.02 = 742-7) EOS x10^3 (test code = 0.13 10*3/uL 0.06-0.53 711-2) BASO x10^3 (test code 0.10 10*3/uL 0.01-0.09 H = 704-7) Lab Interpretation Abnormal (test code = 41272-9) [facility] # [id number] 13:01:00 Test Item Value Reference Range Interpretation Comments Blood Culture-Aerobic No organisms No growth Previo us (test code = 10870-8) isolated prelim inary verified result was Culture In Progress on 12/11/2020 at 100 1 CSTPrevious preliminary verified result was No growth a t 24 hours on 12/12/2020 at 070 1 CSTPrevious preliminary verified result was No growth a t 48 hours on 12/13/2020 at 070 1 CSTPrevious preliminary verified result was No growth a t 72 hours on 12/14/2020 at 070 1 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 Blood No organisms No growth Previous Culture-Anaerobic isolated preliminar y (test code = 20174-9) verifi ed result was Culture In Progress on 12/11/2020 at 100 1 CSTPrevious preliminary verified result was No growth a t 24 hours on 12/12/2020 at 070 1 CSTPrevious preliminary verified result was No growth a t 48 hours on 12/13/2020 at 070 1 CSTPrevious preliminary verified result was No growth a t 72 hours on 12/14/2020 at 070 1 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 Lab Interpretation Normal (test code = 76199-3) [facility] Culture - Peripheral # [id number] 13:01:00 Test Item Value Reference Range Interpretation Comments Blood Culture-Aerobic No organisms No growth Previo us (test code = 09567-8) isolated prelim inary verified result was Culture In Progress on 12/11/2020 at 100 1 CSTPrevious preliminary verified result was No growth a t 24 hours on 12/12/2020 at 070 1 CSTPrevious preliminary verified result was No growth a t 48 hours on 12/13/2020 at 070 1 CSTPrevious preliminary verified result was No growth a t 72 hours on 12/14/2020 at 070 1 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 Blood No organisms No growth Previous Culture-Anaerobic isolated preliminar y (test code = 45112-5) verifi ed result was Culture In Progress on 12/11/2020 at 100 1 CSTPrevious preliminary verified result was No growth a t 24 hours on 12/12/2020 at 070 1 CSTPrevious preliminary verified result was No growth a t 48 hours on 12/13/2020 at 070 1 CSTPrevious preliminary verified result was No growth a t 72 hours on 12/14/2020 at 070 1 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 No interval change in [...] and extrahepatic biliary du ctal dilatation.[facility] 2020-12-15 19:28:00 Test Item Value Reference Range Interpretation Comments POCT GLU (test code = 1722831550) 140 mg/dL 70-110 H Lab Interpretation (test code = Abnormal 93966-0) [facility]2021-[facility] 15:26:00 Test Item Value Reference Range Interpretation Comments MAGNESIUM (test code = 2443954108) 2.2 mg/dL 1.7-2.4 Lab Interpretation (test code = Normal 09058-5) [facility]2020-12-15 15:15:00 Test Item Value Reference Range Interpretation Comments POCT GLU (test code = 8920549629) 181 mg/dL 70-110 H Lab Interpretation (test code = Abnormal 07224-2) [facility] (NA, K, CL, CO2, GLUCOSE, BUN, CREATININE, CA)2020-12-15 13:07:00 Test Item Value Reference Range Interpretation Comments NA (test code = 136 mmol/L 135-145 0556714007) K (test code = 3.6 mmol/L 3.5-5.0 8123308879) CL (test code = 96 mmol/L 98-108 L 8471527015) CO2 TOTAL (test code = 29 mmol/L 23-31 1241704777) AGAP (test code = 2-16 4265359079) BUN (test code = 12 mg/dL 7-23 8247481810) GLUCOSE (test code = 183 mg/dL 70-110 H 4528771278) CREATININE (test code = 0.70 mg/dL 0.60-1.25 6209663720) CALCIUM (test code = 9.2 mg/dL 8.6-10.6 5581766954) eGFR Calculation mL/min/1.73m2 (Non-) (test code = 2534933446) eGFR Calculation mL/min/1.73m2 () (test code = 1070631516) JAMES (test code = JAMES) Association of [...] tests). Lab Interpretation Abnormal (test code = 60030-8) [facility] WITH [id number] 12:32:00 Test Item Value Reference Range Interpretation [...] RDW-SD (test code = 44.4 fL 38.5-51.6 35855-2) RDW-CV (test code = 17.7 % 12.1-15.4 H 788-0) PLT (test code = See_Comment H [Automated 777-3) message] The system which generated this result transmit ronan reference range : 150 - 328 10*3/ ?L. The reference range was not u sed to interpret th is result as normal/abnormal . MPV (test code = 8.1 fL 9.8-13.0 L 28051-6) NRBC/100 WBC (test See_Comment [Automat ed code = 7276315804) message] The system which generated this result transmit ronan reference range : 0.0 - 10.0 /100 WBCs. The reference range was not used to interpret this result as normal/abnormal . NRBC x10^3 (test code <0.01 See_Comment [Auto mated = 0854423820) message] The system which generated this result transmit ronan reference range : 10*3/?L. The reference range was not used to interpret this result as normal/abnormal . GRAN MAT (NEUT) % 74.5 % (test code = 770-8) IMM GRAN % (test code 0.70 % = 0429632179) LYMPH % (test code = 17.4 % 736-9) MONO % (test code = 6.8 % 5905-5) EOS % (test code = 0.2 % 713-8) BASO % (test code = 0.4 % 706-2) GRAN MAT x10^3(ANC) 11.99 10*3/uL 1.99-6.95 H (test code = 3306134751) IMM GRAN x10^3 (test 0.11 10*3/uL 0.00-0.06 H code = 9058923355) LYMPH x10^3 (test code 2.80 10*3/uL 1.09-3.23 = 731-0) MONO x10^3 (test code 1.10 10*3/uL 0.36-1.02 H = 742-7) EOS x10^3 (test code = 0.03 10*3/uL 0.06-0.53 L 711-2) BASO x10^3 (test code 0.06 10*3/uL 0.01-0.09 = 704-7) Lab Interpretation Abnormal (test code = 13728-7) [facility] GLUCOSE (AUTOMATED)2020-12-15 04:16:00 Test Item Value Reference Range Interpretation Comments POCT GLU (test code = 8100136245) 200 mg/dL 70-110 H Lab Interpretation (test code = Abnormal 57875-7) [facility] CenterVITAMIN B1 (THIAMINE), WHOLE [id number] 00:30:00 Test Item Value Reference Range Interpretation Comments Vitamin B1, Whole 136 nmol/L 70-180 INTERPRETI VE INFORMATION: Blood (test code = Vitamin B 1, Whole Blood 53522-1) This assay júnior ures the concentration o f thiamine diphosphate (TD P), the primary active form of vitamin B1. Nick roximately 90 percent of v itamin B1 present in whol e blood is TDP. Thiamine a nd thiamine monoph osphate, which comprise the remaining 10 pe rcent, are not measured. T his test was developed a nd its performance characteristics determined by [facility]. I t has not been cleared or approved by the [place] Food and Drug Administration. This test was performed i n a CLIA certified labor atory and is intended for clinical purposes.Perfor med By: [facility] [place] [id number] aboratory Director: Namrata Klein MD [facility] GLUCOSE (AUTOMATED)2020-12-14 23:35:00 Test Item Value Reference Range Interpretation Comments POCT GLU (test code = 1284065739) 151 mg/dL 70-110 H Lab Interpretation (test code = Abnormal 28507-3) [facility] GLUCOSE (AUTOMATED)2020-12-14 19:19:00 Test Item Value Reference Range Interpretation Comments POCT GLU (test code = 9328815054) 193 mg/dL 70-110 H Lab Interpretation (test code = Abnormal 78302-8) [facility] GLUCOSE (AUTOMATED)2020-12-14 15:22:00 Test Item Value Reference Range Interpretation Comments POCT GLU (test code = 4632952652) 221 mg/dL 70-110 H Lab Interpretation (test code = Abnormal 40435-9) [facility] GLUCOSE (AUTOMATED)2020-12-14 02:37:00 Test Item Value Reference Range Interpretation Comments POCT GLU (test code = 6200750573) 210 mg/dL 70-110 H Lab Interpretation (test code = Abnormal 35280-1) [facility] GLUCOSE (AUTOMATED)2020-12-13 23:33:00 Test Item Value Reference Range Interpretation Comments POCT GLU (test code = 7171111341) 182 mg/dL 70-110 H Lab Interpretation (test code = Abnormal 18173-4) [facility] GLUCOSE (AUTOMATED)2020-12-13 18:09:00 Test Item Value Reference Range Interpretation Comments POCT GLU (test code = 3555859772) 150 mg/dL 70-110 H Lab Interpretation (test code = Abnormal 05579-4) [facility] METABOLIC PANEL (NA, K, CL, CO2, GLUCOSE, BUN, CREATININE, CA)2020-12-13 16:27:00 Test Item Value Reference Range Interpretation Comments NA (test code = 136 mmol/L 135-145 1037770389) K (test code = 3.7 mmol/L 3.5-5.0 3258528300) CL (test code = 96 mmol/L 98-108 L 5511141611) CO2 TOTAL (test code = 29 mmol/L 23-31 5543693943) AGAP (test code = 2-16 9767482593) BUN (test code = 6 mg/dL 7-23 L 4967652132) GLUCOSE (test code = 212 mg/dL 70-110 H 8220506494) CREATININE (test code = 0.61 mg/dL 0.60-1.25 6352510797) CALCIUM (test code = 9.5 mg/dL 8.6-10.6 2459223618) eGFR Calculation mL/min/1.73m2 (Non-) (test code = 3211393210) eGFR Calculation mL/min/1.73m2 () (test code = 0757884973) JAMES (test code = JAMES) Association of [...] tests). Lab Interpretation Abnormal (test code = 27938-0) [facility] WITH [id number] 16:10:00 Test Item Value Reference Range Interpretation Comments WBC (test code = See_Comment H [Automated 7690-2) message] The sy stem which [...] RDW-SD (test code = 43.3 fL 38.5-51.6 78827-3) RDW-CV (test code = 16.2 % 12.1-15.4 H 788-0) PLT (test code = See_Comment H [Automated 777-3) message] The sy stem which generated this result transmitted reference range : 150 - 328 10*3/ ?L. The reference r torito was not used to interpret this result as normal/abnormal . MPV (test code = 8.2 fL 9.8-13.0 L 32291-2) NRBC/100 WBC (test See_Comment [Automat ed code = 5651544278) message] The system which generated this result transmitted reference range : 0.0 - 10.0 /100 WBCs. The refer ence range was not u sed to interpret th is result as normal/abnormal . NRBC x10^3 (test code <0.01 See_Comment [Auto mated = 8947283508) message] The s ystem which generated this result transmitted reference range : 10*3/?L. The reference range was not used to interpret this result as normal/abnormal . GRAN MAT (NEUT) % 86.2 % (test code = 770-8) IMM GRAN % (test code 0.70 % = 3597241068) LYMPH % (test code = 10.2 % 736-9) MONO % (test code = 2.5 % 5905-5) EOS % (test code = 0.1 % 713-8) BASO % (test code = 0.3 % 706-2) GRAN MAT x10^3(ANC) 9.61 10*3/uL 1.99-6.95 H (test code = 7393583658) IMM GRAN x10^3 (test 0.08 10*3/uL 0.00-0.06 H code = 6309256670) LYMPH x10^3 (test code 1.14 10*3/uL 1.09-3.23 = 731-0) MONO x10^3 (test code 0.28 10*3/uL 0.36-1.02 L = 742-7) EOS x10^3 (test code = <0.03 0.06-0.53 L 711-2) BASO x10^3 (test code 0.03 10*3/uL 0.01-0.09 = 704-7) Lab Interpretation Abnormal (test code = 04800-1) [facility]2020-12-13 14:16:00 Test Item Value Reference Range Interpretation Comments POCT GLU (test code = 9216942301) 236 mg/dL 70-110 H Lab Interpretation (test code = Abnormal 31406-1) [facility] CenterLAB ONLY COVID [id number] 04:58:00COVID DMT InterpretationInterpretation/Recommendations: Molecular NAAT Tests for [...] [facility]OR[facility] SERVICESCOVID Resu kduKEUI-PsC-3 Rapid ID NOW (no units) ? ? Date ? Value ? 12/11/2020 ? Not Detected ? ? ? 11/16/2020 ? Not Detected ? ? ? 08/21/2020 ?Not Detected ? [facility] 2020-12-13 03:11:00 Test Item Value Reference Range Interpretation Comments POCT GLU (test code = 9289686287) 171 mg/dL 70-110 H Lab Interpretation (test code = Abnormal 54465-4) [facility] GLUCOSE (AUTOMATED)2020-12-13 00:00:00 Test Item Value Reference Range Interpretation Comments POCT GLU (test code = 3969004845) 118 mg/dL 70-110 H Lab Interpretation (test code = Abnormal 09065-1) [facility] GLUCOSE (AUTOMATED)2020-12-12 20:29:00 Test Item Value Reference Range Interpretation Comments POCT GLU (test code = 6246398994) 173 mg/dL 70-110 H Lab Interpretation (test code = Abnormal 98179-4) [facility] CenterUS ABDOMEN [id number] 19:56:17 1. ?Hepatic steatosis. However, limited evaluation [...] main portal veinwasevaluated with color Doppler imaging. [employer] images were obtainedfor the record. COMPARISON: Ultrasound [...] normal where visualized. SPLEEN:No images were obtained. [facility], Radiant Results Inft User - 12/12/2020 1:57 PM CSTEXAM: US ABDOMEN LIMITEDHISTORY: 70 years-old male with RUQ ultrasound to assess for common bileduct dilation .TECHNIQUE: Limited abdominal ultrasound focused on the liver, biliarysystem, pancreas, and spleen was performed. The main portal vein wasevaluated with color Doppler imaging. [employer] images were obtainedfor the record.COMPARISON: Ultrasound abdomen [...] this study and agree with the abovereport. [facility]2020-12-12 19:24:00 Test Item Value Reference Range Interpretation Comments POCT GLU (test code = 6991553483) 230 mg/dL 70-110 H Lab Interpretation (test code = Abnormal 37180-6) [facility] CenterXR CHEST 1 [id number] 15:16:46 Low lung volumes with mild perihilar [...] have reviewed thisstudy and agree with theabove report.[facility]2020-12-12 14:34:00 Test Item Value Reference Range Interpretation Comments POCT GLU (test code = 3286608436) 225 mg/dL 70-110 H Lab Interpretation (test code = Abnormal 52726-0) [facility] CenterURINE [id number] 13:28:00 Test Item Value Reference Range Interpretation Comments URINE CULTURE (test < 10,000 CFU/mL mixed code = 630-4) aerobic organisms - suggests endogenous microbial contamination [facility]Basic Metabolic Panel (NA, K, CL, CO2, GLUCOSE, BUN, CREATININE, CA)2020-12-12 10:05:00 Test Item Value Reference Range Interpretation Comments NA (test code = 136 mmol/L 135-145 8604920708) K (test code = 3.5 mmol/L 3.5-5.0 5892147038) CL (test code = 100 mmol/L 98-108 4883510390) CO2 TOTAL (test code = 31 mmol/L 23-31 7431814087) AGAP (test code = 2-16 3730208337) BUN (test code = 7 mg/dL 7-23 8226823367) GLUCOSE (test code = 259 mg/dL 70-110 H 6857420922) CREATININE (test code = 0.63 mg/dL 0.60-1.25 4595903677) CALCIUM (test code = 8.5 mg/dL 8.6-10.6 L 7438850436) eGFR Calculation mL/min/1.73m2 (Non-) (test code = 2380456063) eGFR Calculation mL/min/1.73m2 () (test code = 6213337249) JAMES (test code = JAMES) Association of [...] tests). Lab Interpretation Abnormal (test code = 21649-5) [facility] CenterMagnesium [id number] 10:05:00 Test Item Value Reference Range Interpretation Comments MAGNESIUM (test code = 9524473694) 1.9 mg/dL 1.7-2.4 Lab Interpretation (test code = Normal 29419-0) [facility] with [id number] 09:48:00 Test Item Value Reference Range Interpretation Comments WBC (test code = See_Comment [Automated 1246-2) message] The sy stem which generated this result transmitted reference range : 4.20 - 10.70 10*3/?L. The reference range was not used to interpret this result as normal/abnormal . RBC (test code = See_Comment [Automated 736-8) message] The sy stem which generated this [...] RDW-SD (test code = 46.0 fL 38.5-51.6 79140-8) RDW-CV (test code = 16.1 % 12.1-15.4 H 788-0) PLT (test code = See_Comment H [Automated 777-3) message] The sy stem which generated this result transmitted reference range : 150 - 328 10*3/ ?L. The reference r torito was not used to interpret this result as normal/abnormal . MPV (test code = 8.6 fL 9.8-13.0 L 50729-4) NRBC/100 WBC (test See_Comment [Automat ed code = 6737540935) message] The system which generated this result transmitted reference range : 0.0 - 10.0 /100 WBCs. The refer ence range was not u sed to interpret th is result as normal/abnormal . NRBC x10^3 (test code <0.01 See_Comment [Auto mated = 7401722850) message] The s ystem which generated this result transmitted reference range : 10*3/?L. The reference range was not used to interpret this result as normal/abnormal . GRAN MAT (NEUT) % 70.2 % (test code = 770-8) IMM GRAN % (test code 0.30 % = 9992716468) LYMPH % (test code = 18.8 % 736-9) MONO % (test code = 5.0 % 5905-5) EOS % (test code = 5.2 % 713-8) BASO % (test code = 0.5 % 706-2) GRAN MAT x10^3(ANC) 6.05 10*3/uL 1.99-6.95 (test code = 2527391787) IMM GRAN x10^3 (test 0.03 10*3/uL 0.00-0.06 code = 0210876431) LYMPH x10^3 (test code 1.62 10*3/uL 1.09-3.23 = 731-0) MONO x10^3 (test code 0.43 10*3/uL 0.36-1.02 = 742-7) EOS x10^3 (test code = 0.45 10*3/uL 0.06-0.53 711-2) BASO x10^3 (test code 0.04 10*3/uL 0.01-0.09 = 704-7) Lab Interpretation Abnormal (test code = 84890-9) [facility] GLUCOSE (AUTOMATED)2020-12-12 03:42:00 Test Item Value Reference Range Interpretation Comments POCT GLU (test code = 196 mg/dL 70-110 H Notifi ed Provider 7026818102) Lab Interpretation (test Abnormal code = 18321-2) [facility] CenterFOLATE2021-03-02 02:24:00 Test Item Value Reference Range Interpretation Comments FOLATE SER (test code = 9732979356) 5.8 ng/mL 3.0-20.0 Lab Interpretation (test code = Normal 20000-5) [facility] CenterVITAMIN B12, [id number] 00:55:00 Test Item Value Reference Range Interpretation Comments VIT B12 (test code = 844 pg/mL 240-930 7284499686) JAMES (test code = JAMES) Biotin has been reported to cause a positive bias, interpret results relative to patient's use of biotin. Lab Interpretation (test Normal code = 39453-6) [facility] GLUCOSE (AUTOMATED)2020-12-12 00:14:00 Test Item Value Reference Range Interpretation Comments POCT GLU (test code = 9498089198) 164 mg/dL 70-110 H Lab Interpretation (test code = Abnormal 73613-8) [facility] CenterCREATINE [id number] 23:42:00 Test Item Value Reference Range Interpretation Comments CK (test code = 0212911082) <20 33-194 L Lab Interpretation (test code = Abnormal 40194-0) [facility] CenterTHYROID STIMULATING [id number] 23:17:00 Test Item Value Reference Range Interpretation Comments TSH (test code = See_Comment Biotin has been 6873513831) reported to cau se a negative bias, interpret resul ts relative to pat ient's use of biotin. [Automated mess age] The system whic h generated this result transmitted ref erence range: 0.45 - 4 .70 mIU/L. The refe rence range was not u sed to interpret this result as normal/abnor mal. Lab Interpretation (test Normal code = 42145-0) [facility] CenterXR HIPS 3 VW [id number] 21:41:53No appreciable fracture lines. RL: 6200 ICAL [...] No osseous erosions.IMPRESSIONNo appreciable fracture lines.RL: 6200 [facility] HospitalPROCALCITONIN2021-03-01 20:00:00 Test Item Value Reference Range Interpretation Comments Procalcitonin (test 0.13 ng/mL <0.07 H code = 2070517054) JAMES (test code = JAMES) INTERPRETATION OF [...] lung abscess/empyema. For further information please refer to:[email or web address] Lab Interpretation Abnormal (test code = 60043-9) [facility]PO[facility])2020-12-11 19:07:00 Test Item Value Reference Range Interpretation Comments POCT GLU (test code = 1788161935) 274 mg/dL 70-110 H Lab Interpretation (test code = Abnormal 31355-2) [facility] CenterMAGNESIUM2021-03-01 18:31:00 Test Item Value Reference Range Interpretation Comments MAGNESIUM (test code = 3655173761) 1.9 mg/dL 1.7-2.4 Lab Interpretation (test code = Normal 59164-9) [facility] CenterFERRITIN [id number] 18:31:00 Test Item Value Reference Range Interpretation Comments FERRITIN (test code = 178.0 ng/mL 18.0-464.0 9931264628) JAMES (test code = JAMES) Biotin has been reported to cause a negative bias, interpret results relative to patient's use of biotin. Lab Interpretation (test Normal code = 40421-6) [facility] CenterCT HEAD WO [id number] 14:36:47 No acute intracranial abnormality. Dilated ventricles [...] reviewed this study and agree with the abovereport.[facility] CenterURINALYSIS2021-03-01 14:28:00 Test Item Value Reference Range Interpretation Comments APPEARANCE (test code = Clear Clear 0154200504) COLOR (test code = Yellow Yellow 8884193952) PH (test code = 4.8-8.0 4177687949) SP GRAVITY (test code = 1.003-1.030 0817285531) GLU U QUAL (test code = 500 mg/dL Normal A 7190827391) BLOOD (test code = Negative Negative 4560050888) KETONES (test code = 5 mg/dL Negative A 7936709508) PROTEIN (test code = Negative Negative 2887-8) UROBILIN (test code = Normal Normal 2184030376) BILIRUBIN (test code = Negative Negative 3805853746) NITRITE (test code = Negative Negative 7375455274) LEUK RYAN (test code = Negative Negative 6894414688) RBC/HPF (test code = See_Comment [Autom ated message] 1705679046) The system [employer] generated this result transmit ronan reference range : 0 - 3 HPF. The refe rence range was not u sed to interpret th is result as normal/abnormal . WBC/HPF (test code = See_Comment [Autom ated message] 7550320077) The system [employer] generated this result transmit ronan reference range : 0 - 5 HPF. The refe rence range was not u sed to interpret th is result as normal/abnormal . BACTERIA (test code = Negative Negative 2223257682) MUCOUS (test code = Slight Negative LPF A 2562707399) SQ EPITH (test code = HPF 5251224121) Lab Interpretation (test Abnormal code = 60616-7) [facility] CenterCOVID-19 (ID NOW RAPID TESTING)2020-12-11 13:10:00 Test Item Value Reference Range Interpretation Comments SARS-CoV-2 Rapid ID NOW Not Detected Not Detected (test code = 64919-2) JAMES (test code = JAMES) ID NOW COVID-19 Assay is an isothermal nucleic acid amplification test intended for the qualitative detection of nucleic acid from SARS-CoV-2 viral RNA in nasopharyngeal (HAND PAINTER) specimens. It is used under Emergency Use [...] indicated. Lab Interpretation Normal (test code = 73088-7) [facility] CenterCOMP. METABOLIC PANEL (17927)2020-12-11 12:29:00 Test Item Value Reference Range Interpretation Comments NA (test code = 136 mmol/L 135-145 7669462918) K (test code = 3.5 mmol/L 3.5-5.0 8807016071) CL (test code = 95 mmol/L 98-108 L 4151951103) CO2 TOTAL (test code = 35 mmol/L 23-31 H 2693075768) AGAP (test code = 2-16 8404435187) BUN (test code = 9 mg/dL 7-23 6202888034) GLUCOSE (test code = 329 mg/dL 70-110 H 6190397837) CREATININE (test code = 0.72 mg/dL 0.60-1.25 5575810494) TOTAL BILI (test code = 0.6 mg/dL 0.1-1.4 9018347644) CALCIUM (test code = 9.0 mg/dL 8.6-10.6 6039320978) T PROTEIN (test code = 6.8 g/dL 6.3-8.2 3949876387) ALBUMIN (test code = 3.8 g/dL 3.5-5.0 3489459310) ALK PHOS (test code = 288 U/L 34-122 H 9481601600) ALTv (test code = 46 U/L -50 1741-6) AST(SGOT) (test code = 38 U/L 13-40 8292564023) eGFR Calculation mL/min/1.73m2 (Non-) (test code = 4306233808) eGFR Calculation mL/min/1.73m2 () (test code = 5475815830) JAMES (test code = JAMES) Association of [...] tests). Lab Interpretation Abnormal (test code = 06445-9) [facility] CenterLactic Acid Whole [id number] 12:23:00 Test Item Value Reference Range Interpretation Comments LACTIC ACID (test code = 2.09 mmol/L 0.50-2.20 0947531372) Lab Interpretation (test code = Normal 07055-4) [facility] CenterCB WITH [id number] 12:17:00 Test Item Value Reference Range Interpretation [...] RDW-SD (test code = 44.9 fL 38.5-51.6 68803-8) RDW-CV (test code = 15.9 % 12.1-15.4 H 788-0) PLT (test code = See_Comment H [Automated 777-3) message] The sy stem which generated this result transmitted reference range : 150 - 328 10*3/ ?L. The reference r torito was not used to interpret this result as normal/abnormal . MPV (test code = 8.3 fL 9.8-13.0 L 24387-5) NRBC/100 WBC (test See_Comment [Automat ed code = 6011819595) message] The system which generated this result transmitted reference range : 0.0 - 10.0 /100 WBCs. The refer ence range was not u sed to interpret th is result as normal/abnormal . NRBC x10^3 (test code <0.01 See_Comment [Auto mated = 1104854772) message] The s ystem which generated this result transmitted reference range : 10*3/?L. The reference range was not used to interpret this result as normal/abnormal . GRAN MAT (NEUT) % 77.9 % (test code = 770-8) IMM GRAN % (test code 0.50 % = 0012238400) LYMPH % (test code = 12.2 % 736-9) MONO % (test code = 5.2 % 5905-5) EOS % (test code = 3.7 % 713-8) BASO % (test code = 0.5 % 706-2) GRAN MAT x10^3(ANC) 9.57 10*3/uL 1.99-6.95 H (test code = 9837852154) IMM GRAN x10^3 (test 0.06 10*3/uL 0.00-0.06 code = 5701268633) LYMPH x10^3 (test code 1.50 10*3/uL 1.09-3.23 = 731-0) MONO x10^3 (test code 0.64 10*3/uL 0.36-1.02 = 742-7) EOS x10^3 (test code = 0.46 10*3/uL 0.06-0.53 711-2) BASO x10^3 (test code 0.06 10*3/uL 0.01-0.09 = 704-7) Lab Interpretation Abnormal (test code = 77218-9) [facility] [id number] 18:43:00COVID DMT InterpretationInterpretation/Recommendations: Molecular NAAT Test Results [...] a nasopharyngeal sample, there is approximately a meb-zw-fevwt chance that the patient was infected and [...] upon aggregate data pooled from the [facility] medical record including both current and prior COVID-19 related testing results for the following tests offered at our institution:A. Tests for the Identification of SARS-CoV-2 RNA:SARS-CoV-2 PCR assays including [employer] Aptima, Jefferson Fusion, Barrett RealTime, and [employer] Xpert Xpress. SARS-CoV-2 Rapid ID NOW by the ID NOW assay. ? B. Tests for the Identification of SARS-CoV-2 Antibodies: Chemiluminescent immunoassays including Access SARS-CoV-2 IgM (DXI 600), [employer]-JDSV-SeD-2 IgG (Vitros 5600 and Vitros 3600), and Barrett SARS-CoV-2 IgG (WASTE DUSTER I System). These interpretation comments assume that only the above testing was utilized and that the approved acceptable specimen type(s) were used for a given test. These interpretations are autopopulated into [employer] based on computerized algorithms matching an interpretation [...] setting. [facility] LABORATORY SERVICESCOVID OwljtfuOXDN-NiF-5 Rapid ID NOW (no units) ? ? Date ? Value ? 08/21/2020 ? Not Detected ? [facility]-08[facility]23 18:25:00 Test Item Value Reference Range Interpretation Comments POCT GLU (test code = 9497621640) 297 mg/dL 70-110 H Lab Interpretation (test code = Abnormal 19257-5) [facility] GLUCOSE (AUTOMATED)2020-08-23 14:25:00 Test Item Value Reference Range Interpretation Comments POCT GLU (test code = 4429155657) 181 mg/dL 70-110 H Lab Interpretation (test code = Abnormal 09964-4) [facility] CenterBasi [facility] (NA, K, CL, CO2, GLUCOSE, BUN, CREATININE, CA)2020-08-23 11:45:00 Test Item Value Reference Range Interpretation Comments NA (test code = 132 mmol/L 135-145 L 4771792639) K (test code = 4.0 mmol/L 3.5-5 1080818060) CL (test code = 96 mmol/L 98-108 L 5609356643) CO2 TOTAL (test code = 33 mmol/L 23-31 H 8176944663) AGAP (test code = 2-16 8793269555) BUN (test code = 9 mg/dL 7-23 0023184554) GLUCOSE (test code = 176 mg/dL 70-110 H 2442177410) CREATININE (test code = 0.66 mg/dL 0.6-1.25 4842083728) CALCIUM (test code = 8.5 mg/dL 8.6-10.6 L 7412437554) eGFR Calculation mL/min/1.73m2 (Non-) (test code = 8139100955) eGFR Calculation mL/min/1.73m2 () (test code = 0642161163) JAMES (test code = JAMES) Association of [...] tests). Lab Interpretation Abnormal (test code = 10284-1) [facility] CenterMagnesium [id number] 11:45:00 Test Item Value Reference Range Interpretation Comments MAGNESIUM (test code = 7795192878) 2.0 mg/dL 1.7-2.4 Lab Interpretation (test code = Normal 67258-1) [facility] CenterCB with Aqhzmtepkjec5725-42-48 11:38:00 Test Item Value Reference Range Interpretation [...] RDW-SD (test code = 41.8 fL 38.5-51.6 99155-0) RDW-CV (test code = 14.3 % 12.1-15.4 788-0) PLT (test code = See_Comment H [Automated 777-3) message] The sy stem which generated this result transmitted reference range : 150 - 328 10*3/ ?L. The reference r torito was not used to interpret this result as normal/abnormal . MPV (test code = 8.0 fL 9.8-13 L 99155-3) NRBC/100 WBC (test See_Comment [Automat ed code = 7151951719) message] The system which generated this result transmitted reference range : 0.0 - 10.0 /100 WBCs. The refer ence range was not u sed to interpret th is result as normal/abnormal . NRBC x10^3 (test code <0.01 See_Comment [Auto mated = 6658612919) message] The s ystem which generated this result transmitted reference range : 10*3/?L. The reference range was not used to interpret this result as normal/abnormal . GRAN MAT (NEUT) % 61.5 % (test code = 770-8) IMM GRAN % (test code 2.00 % = 2786268848) LYMPH % (test code = 25.5 % 736-9) MONO % (test code = 6.3 % 5905-5) EOS % (test code = 3.7 % 713-8) BASO % (test code = 1.0 % 706-2) GRAN MAT x10^3(ANC) 5.29 10*3/uL 1.99-6.95 (test code = 3681127162) IMM GRAN x10^3 (test 0.17 10*3/uL 0-0.06 H code = 9264728790) LYMPH x10^3 (test code 2.19 10*3/uL 1.09-3.23 = 731-0) MONO x10^3 (test code 0.54 10*3/uL 0.36-1.02 = 742-7) EOS x10^3 (test code = 0.32 10*3/uL 0.06-0.53 711-2) BASO x10^3 (test code 0.09 10*3/uL 0.01-0.09 = 704-7) Lab Interpretation Abnormal (test code = 96337-9) [facility] GLUCOSE (AUTOMATED)2020-08-23 10:22:00 Test Item Value Reference Range Interpretation Comments POCT GLU (test code = 4201554369) 164 mg/dL 70-110 H Lab Interpretation (test code = Abnormal 41922-7) [facility] GLUCOSE (AUTOMATED)2020-08-23 05:56:00 Test Item Value Reference Range Interpretation Comments POCT GLU (test code = 7288191642) 242 mg/dL 70-110 H Lab Interpretation (test code = Abnormal 09165-4) [facility] GLUCOSE (AUTOMATED)2020-08-23 03:02:00 Test Item Value Reference Range Interpretation Comments POCT GLU (test code = 6669065888) 210 mg/dL 70-110 H Lab Interpretation (test code = Abnormal 96714-3) [facility] GLUCOSE (AUTOMATED)2020-08-22 23:40:00 Test Item Value Reference Range Interpretation Comments POCT GLU (test code = 9208023498) 267 mg/dL 70-110 H Lab Interpretation (test code = Abnormal 93946-4) [facility] GLUCOSE (AUTOMATED)2020-08-22 19:08:00 Test Item Value Reference Range Interpretation Comments POCT GLU (test code = 7354032805) 191 mg/dL 70-110 H Lab Interpretation (test code = Abnormal 09470-4) [facility] GLUCOSE (AUTOMATED)2020-08-22 13:50:00 Test Item Value Reference Range Interpretation Comments POCT GLU (test code = 4530377254) 174 mg/dL 70-110 H Lab Interpretation (test code = Abnormal 74402-6) [facility] CenterURINE [id number] 12:59:00 Test Item Value Reference Range Interpretation Comments URINE CULTURE (test No aerobic growth (< code = 630-4) 1000 CFU/mL) [facility] with Tanzvehwmlwn4076-23-84 11:28:00 Test Item Value Reference Range Interpretation Comments WBC (test code = See_Comment [Automated 6690-2) message] The sy stem which generated this result transmitted reference range : 4.20 - 10.70 10*3/?L. The reference range was not used to interpret this result as normal/abnormal . RBC (test code = See_Comment L [Automated 559-8) message] The sy stem which generated this [...] RDW-SD (test code = 42.5 fL 38.5-51.6 95101-1) RDW-CV (test code = 14.5 % 12.1-15.4 788-0) PLT (test code = See_Comment H [Automated 777-3) message] The sy stem which generated this result transmitted reference range : 150 - 328 10*3/ ?L. The reference r torito was not used to interpret this result as normal/abnormal . MPV (test code = 8.0 fL 9.8-13 L 66071-2) NRBC/100 WBC (test See_Comment [Automat ed code = 3756825767) message] The system which generated this result transmitted reference range : 0.0 - 10.0 /100 WBCs. The refer ence range was not u sed to interpret th is result as normal/abnormal . NRBC x10^3 (test code <0.01 See_Comment [Auto mated = 3078018286) message] The s ystem which generated this result transmitted reference range : 10*3/?L. The reference range was not used to interpret this result as normal/abnormal . GRAN MAT (NEUT) % 69.1 % (test code = 770-8) IMM GRAN % (test code 2.20 % = 7528786436) LYMPH % (test code = 20.9 % 736-9) MONO % (test code = 5.8 % 5905-5) EOS % (test code = 1.0 % 713-8) BASO % (test code = 1.0 % 706-2) GRAN MAT x10^3(ANC) 6.51 10*3/uL 1.99-6.95 (test code = 2249570017) IMM GRAN x10^3 (test 0.21 10*3/uL 0-0.06 H code = 8164779241) LYMPH x10^3 (test code 1.97 10*3/uL 1.09-3.23 = 731-0) MONO x10^3 (test code 0.55 10*3/uL 0.36-1.02 = 742-7) EOS x10^3 (test code = 0.09 10*3/uL 0.06-0.53 711-2) BASO x10^3 (test code 0.09 10*3/uL 0.01-0.09 = 704-7) BASO STIPPLING (test Present A code = 703-9) BANDS (test code = Increased A 9952477577) TOXIC CHANGES (test Present A code = 803-7) Lab Interpretation Abnormal (test code = 09972-5) [facility] Metabolic Panel (NA, K, CL, CO2, GLUCOSE, BUN, CREATININE, CA)2020-08-22 11:12:00 Test Item Value Reference Range Interpretation Comments NA (test code = 135 mmol/L 135-145 4230870847) K (test code = 3.6 mmol/L 3.5-5 3320608751) CL (test code = 99 mmol/L 98-108 4141694784) CO2 TOTAL (test code = 31 mmol/L 23-31 4299519031) AGAP (test code = 2-16 1295256271) BUN (test code = 9 mg/dL 7-23 8145205825) GLUCOSE (test code = 198 mg/dL 70-110 H 9397240404) CREATININE (test code = 0.72 mg/dL 0.6-1.25 2252162209) CALCIUM (test code = 8.3 mg/dL 8.6-10.6 L 3519235635) eGFR Calculation mL/min/1.73m2 (Non-) (test code = 0482761638) eGFR Calculation mL/min/1.73m2 () (test code = 7318028839) JAMES (test code = JAMES) Association of [...] tests). Lab Interpretation Abnormal (test code = 95914-6) [facility] CenterMagnesium Duvpw2919-06-23 11:12:00 Test Item Value Reference Range Interpretation Comments MAGNESIUM (test code = 3346306350) 2.0 mg/dL 1.7-2.4 Lab Interpretation (test code = Normal 02049-6) [facility] CenterLipid Panel (Total Cholesterol, Triglycerides, HDL) - [id number] 11:12:00 Test Item Value Reference Range Interpretation Comments CHOL (test code = 155 mg/dL 120-200 1980174872) HDL (test code = 42 mg/dL >40 7853532106) HDLC RATIO (test code = See_Comment [Au tomated message] 3214913302) The system [employer] generated this result transmit ronan reference range : <=5.0. The refe rence range was not u sed to interpret th is result as normal/abnormal . TRIG (test code = 186 mg/dL 30-170 H 4912111319) LDL CHOL (test code = 76 mg/dL See_Comment [Auto mated message] 89542-6) The system [employer] generated this result transmit ronan reference range : <=160. The refe rence range was not u sed to interpret th is result as normal/abnormal . VLDL (test code = 37 mg/dL 5-60 6819687097) Lab Interpretation (test Abnormal code = 78395-7) [facility] CenterHEPATIC FUNCTION PANEL (30846) (ALB,T.PRO,BILI T,BU/BC,ALT,AST,ALK PHOS)2020-08-22 11:12:00 Test Item Value Reference Range Interpretation Comments TOTAL BILI (test code = 8285057294) 0.6 mg/dL 0.1-1.1 BILI UNCON (test code = 7614026234) 0.2 mg/dL 0.1-1.1 BILI CONJ (test code = 1903193874) 0.0 mg/dL 0-0.3 T PROTEIN (test code = 2376485220) 6.0 g/dL 6.3-8.2 L ALBUMIN (test code = 9117804095) 2.8 g/dL 3.5-5 L ALK PHOS (test code = 3805718580) 222 U/L 34-122 H ALTv (test code = 1742-6) 27 U/L 5-50 AST(SGOT) (test code = 8730158371) 30 U/L 13-40 Lab Interpretation (test code = Abnormal 05233-0) [facility] GLUCOSE (AUTOMATED)2020-08-22 10:11:00 Test Item Value Reference Range Interpretation Comments POCT GLU (test code = 1527690657) 196 mg/dL 70-110 H Lab Interpretation (test code = Abnormal 20450-2) [facility] GLUCOSE (AUTOMATED)2020-08-22 07:15:00 Test Item Value Reference Range Interpretation Comments POCT GLU (test code = 4644155512) 183 mg/dL 70-110 H Lab Interpretation (test code = Abnormal 79496-2) [facility] GLUCOSE (AUTOMATED)2020-08-22 02:30:00 Test Item Value Reference Range Interpretation Comments POCT GLU (test code = 3789809255) 295 mg/dL 70-110 H Lab Interpretation (test code = Abnormal 21021-0) [facility] GLUCOSE (AUTOMATED)2020-08-21 23:46:00 Test Item Value Reference Range Interpretation Comments POCT GLU (test code = 7307161609) 258 mg/dL 70-110 H Lab Interpretation (test code = Abnormal 57712-9) [facility] CenterC-REACTIVE [id number] 18:50:00 Test Item Value Reference Range Interpretation Comments CRP (test code = 2735471657) 15.5 mg/dL <0.8 H Lab Interpretation (test code = Abnormal 28435-1) [facility]PO[facility]2020-08-21 18:21:00 Test Item Value Reference Range Interpretation Comments POCT GLU (test code = 4419344977) 297 mg/dL 70-110 H Lab Interpretation (test code = Abnormal 31520-5) [facility] CenterETHANOL2020-11-09 16:24:00 Test Item Value Reference Range Interpretation Comments ALCOHOL (test code = <10 mg/dL 8589163906) JAMES (test code = Toxic Greater than or JAMES) equal to 80 mg/dL. NOTE: Whole blood values are approximately 10% to 15% lower than serum and plasma. [facility] CenterGAL/CLC ONLY - URINE DRUG (IMMUNOASSAY) - 4 ER [id number] 15:36:00 Test Item Value Reference Range Interpretation Comments AMPHET (test code = Negative Negative 3869678514) Cocaine Metabolite (test Negative Negative code = 6614308553) OPIATES (test code = Presumptive Positive Negative A 0117803123) THC (test code = Negative Negative 3036209613) JAMES (test code = JAMES) Urine Drug Cutoff Ranges Amphetamine: ? 1,000 ng/mLCocaine: ? 150 ng/mLOpiates: ? 300 ng/mLCannabinoids: ?50 ng/mL The results are to be used only for medical (i.e., treatment) purposes. Unconfirmed screening results must not be used for non-medical purposes (e.g., employment testing, legal testing). Lab Interpretation (test Abnormal code = 90961-9) [facility] ONLY - SYPHILIS [id number] 15:04:00 Test Item Value Reference Range Interpretation Comments Syphilis IgG/IgM (test Non-reactive Non-reactive code = 87854-8) JAMES (test code = JAMES) Non-reactive - No serologic evidence of T. pallidum infection. Cannot exclude incubating or early syphilis. Submit a second specimen in 2-4 weeks if syphilis is clinically suspected. Equivocal - Further testing to follow. Reactive - Further testing to follow. Lab Interpretation (test Normal code = 44134-0) [facility] CenterUrinalysis2020-11-09 14:52:00 Test Item Value Reference Range Interpretation Comments APPEARANCE (test code = Clear Clear 4171526133) COLOR (test code = Yellow Yellow 6892927788) PH (test code = 4.8-8.0 3136949579) SP GRAVITY (test code = 1.003-1.030 1035202426) GLU U QUAL (test code = 500 mg/dL Normal A 9155805387) BLOOD (test code = Negative Negative 5837256207) KETONES (test code = 20 mg/dL Negative A 7228627425) PROTEIN (test code = Negative Negative 2887-8) UROBILIN (test code = Normal Normal 9079395337) BILIRUBIN (test code = Negative Negative 8680152834) NITRITE (test code = Negative Negative 6189463510) LEUK RYAN (test code = Negative Negative 2015299660) RBC/HPF (test code = <1 See_Comment [Autom ated message] 6464329368) The system [employer] generated this result transmit ronan reference range : 0 - 3 HPF. The refe rence range was not u sed to interpret th is result as normal/abnormal . WBC/HPF (test code = See_Comment [Autom ated message] 0210371403) The system [employer] generated this result transmit ronan reference range : 0 - 5 HPF. The refe rence range was not u sed to interpret th is result as normal/abnormal . BACTERIA (test code = Negative Negative 2756077044) MUCOUS (test code = Slight Negative LPF A 3238603897) Lab Interpretation (test Abnormal code = 38137-7) [facility] CenterACTIVATED PARTIAL THRMPLAS [id number] 13:45:00 Test Item Value Reference Range Interpretation Comments APTT Patient (test code = See_Comment [ Automated message] 3173-2) The system [employer] generated this result transmitted ref erence range: 26 - 36 Seconds. The re ference range was not u sed to interpret this result as normal/abnor mal. Lab Interpretation (test Normal code = 30663-4) [facility] CenterPOCT [facility]SE (AUT[facility]ATED)2020-08-21 13:45:00 Test Item Value Reference Range Interpretation Comments POCT GLU (test code = 4943614020) 246 mg/dL 70-110 H Lab Interpretation (test code = Abnormal 62397-6) [facility] CenterHIV 1/2 AG-AB WITH [id number] 12:32:00 Test Item Value Reference Range Interpretation Comments HIV Negative Negative Semi-quantitative (test code = 42953-5) JAMES (test code = Non-reactive for HIV-1 JAMES) antigen and HIV-1/HIV-2 antibodies. ?No laboratory evidence of HIV infection. ?Repeat in 2-4 weeks if acute HIV infection is suspected. [facility] WITH [id number] 12:18:00 Test Item Value Reference Range Interpretation [...] RDW-SD (test code = 44.4 fL 38.5-51.6 09871-7) RDW-CV (test code = 14.5 % 12.1-15.4 788-0) PLT (test code = See_Comment H [Automated 777-3) message] The sy stem which generated this result transmitted reference range : 150 - 328 10*3/ ?L. The reference r torito was not used to interpret this result as normal/abnormal . MPV (test code = 8.5 fL 9.8-13 L 44991-3) NRBC/100 WBC (test See_Comment [Automat ed code = 4136352774) message] The system which generated this result transmitted reference range : 0.0 - 10.0 /100 WBCs. The refer ence range was not u sed to interpret th is result as normal/abnormal . NRBC x10^3 (test code <0.01 See_Comment [Auto mated = 1458532716) message] The s ystem which generated this result transmitted reference range : 10*3/?L. The reference range was not used to interpret this result as normal/abnormal . GRAN MAT (NEUT) % 90.4 % (test code = 770-8) IMM GRAN % (test code 1.30 % = 0485062067) LYMPH % (test code = 7.1 % 736-9) MONO % (test code = 0.5 % 5905-5) EOS % (test code = 0.1 % 713-8) BASO % (test code = 0.6 % 706-2) GRAN MAT x10^3(ANC) 7.74 10*3/uL 1.99-6.95 H (test code = 3360612979) IMM GRAN x10^3 (test 0.11 10*3/uL 0-0.06 H code = 2365776948) LYMPH x10^3 (test code 0.61 10*3/uL 1.09-3.23 L = 731-0) MONO x10^3 (test code 0.04 10*3/uL 0.36-1.02 L = 742-7) EOS x10^3 (test code = <0.03 0.06-0.53 L 711-2) BASO x10^3 (test code 0.05 10*3/uL 0.01-0.09 = 704-7) POLYCHROMASIA (test 2+ See_Comment [Automa ronan code = 05016-3) message] The system which generated this result transmitted reference range : 2+. The referen ce range was not u sed to interpret th is result as normal/abnormal . BANDS (test code = Increased A 8477685124) Lab Interpretation Abnormal (test code = 54722-3) [facility] CenterPROCALCITONIN2020-11-09 11:48:00 Test Item Value Reference Range Interpretation Comments Procalcitonin (test 0.36 ng/mL <0.07 H code = 8137567255) JAMES (test code = JAMES) INTERPRETATION OF [...] lung abscess/empyema. For further information please refer to:[email or web address] Lab Interpretation Abnormal (test code = 47647-9) [facility] CenterLACTATE [id number] 10:53:00 Test Item Value Reference Range Interpretation Comments LDH (test code = 1186375367) 351 U/L 300-600 Lab Interpretation (test code = Normal 79743-0) [facility] CenterSEDIMENTATION [id number] 10:07:00 Test Item Value Reference Range Interpretation Comments ESR (test code = See_Comment H [Automated message] 7573649160) The system [employer] generated this result transmitted ref erence range: 0 - 10 m m/HR. The reference r torito was not used to interpret this result as normal/abnor mal. Lab Interpretation (test Abnormal code = 06286-0) [facility] CenterPOPR GLUCOSE (AUTOMATED)2020-08-21 09:45:00 Test Item Value Reference Range Interpretation Comments POCT GLU (test code = 0948016496) 287 mg/dL 70-110 H Lab Interpretation (test code = Abnormal 58083-9) [facility] CenterGlycosylated Hemoglobin (A1C)2020-08-21 09:29:00 Test Item Value Reference Range Interpretation Comments HGB A1C (test code = 4548-4) 9.8 % 4-6 H Lab Interpretation (test code = Abnormal 61178-7) [facility] CenterCOVID-19 (ID NOW RAPID TESTING)2020-08-21 09:13:00 Test Item Value Reference Range Interpretation Comments SARS-CoV-2 Rapid ID NOW Not Detected Not Detected (test code = 17849-7) JAMES (test code = JAMES) ID NOW COVID-19 Assay is an isothermal nucleic acid amplification test intended for the qualitative detection of nucleic acid from SARS-CoV-2 viral RNA in nasopharyngeal (HAND PAINTER) specimens. It is used under Emergency Use [...] indicated. Lab Interpretation Normal (test code = 95267-6) [facility] CenterProthrombin Time / [id number] 08:59:00 Test Item Value Reference Range Interpretation Comments PROTIME PATIENT (test See_Comment H [Auto mated message] code = 5964-2) The system [employer] generated this result transmitted ref erence range: 10.1 - 1 2.6 Seconds. The reference range was not used to int erpret this result as normal/abnormal . INR (test code = 6301-6) Nor mal INR <1.1; Warfarin Therap eutic range 2.0 to 3. 0 or 2.5 to 3.5, dep ending upon the indica tions. Lab Interpretation (test Abnormal code = 24048-5) [facility] CenteraPTT2020-11-09 08:59:00 Test Item Value Reference Range Interpretation Comments APTT Patient (test code = See_Comment [ Automated message] 3173-2) The system [employer] generated this result transmitted ref erence range: 26 - 36 Seconds. The re ference range was not u sed to interpret this result as normal/abnor mal. Lab Interpretation (test Normal code = 22308-7) [facility] CenterBASI METABOLIC PANEL (NA, K, CL, CO2, GLUCOSE, BUN, CREATININE, CA)2020-08-21 08:52:00 Test Item Value Reference Range Interpretation Comments NA (test code = 136 mmol/L 135-145 2828329435) K (test code = 4.3 mmol/L 3.5-5 6583796354) CL (test code = 104 mmol/L 98-108 7639796875) CO2 TOTAL (test code = 24 mmol/L 23-31 4000455708) AGAP (test code = 2-16 5660957120) BUN (test code = 8 mg/dL 7-23 5098695191) GLUCOSE (test code = 308 mg/dL 70-110 H 4038610172) CREATININE (test code = 0.72 mg/dL 0.6-1.25 0962784406) CALCIUM (test code = 7.8 mg/dL 8.6-10.6 L 1895445291) eGFR Calculation mL/min/1.73m2 (Non-) (test code = 6106351171) eGFR Calculation mL/min/1.73m2 () (test code = 4239633897) JAMES (test code = JAMES) Association of [...] tests). Lab Interpretation Abnormal (test code = 03275-1) [facility] CenterHEPATIC FUNCTION PANEL (22484) (ALB,T.PRO,BILI T,BU/BC,ALT,AST,ALK PHOS)2020-08-21 08:52:00 Test Item Value Reference Range Interpretation Comments TOTAL BILI (test code = 0239859242) 0.8 mg/dL 0.1-1.1 BILI UNCON (test code = 2987172746) 0.3 mg/dL 0.1-1.1 BILI CONJ (test code = 5930551762) 0.0 mg/dL 0-0.3 T PROTEIN (test code = 6510701779) 5.7 g/dL 6.3-8.2 L ALBUMIN (test code = 8739288855) 2.7 g/dL 3.5-5 L ALK PHOS (test code = 1894478414) 245 U/L 34-122 H ALTv (test code = 1742-6) 37 U/L 5-50 AST(SGOT) (test code = 4221497223) 43 U/L 13-40 H Lab Interpretation (test code = Abnormal 56072-7) [facility]
[2022-03-04 14:32] LABS: Absolute Lymphocytes (CBC) 1.5 K/uL (0.7-4.9); Hematocrit 38.4 % (39.6-49.0); MPV 6.3 fL (7.6-11.3); RBC Red Blood Cell Count 4.57 M/uL (4.33-5.43)
[2022-03-04 14:43] LABS: Potassium 3.6 mmol/L (3.5-5.1); Troponin High Sensitivity 12.9 pg/mL (<58.9)
[2022-03-04] MEDS ORDERED: METOCLOPRAMIDE 10 MG/2mL INJ ONE (15:12)
[2022-03-04] MEDS ORDERED: LORazepam 2 MG/ML VIAL ONE (15:13)
[2022-03-04] MEDS ORDERED: NA CHLORIDE 0.9% 250 ML ONE (15:13)
[2022-03-04] MEDS ORDERED: DIPHENHYDRAMINE 50 MG/ML VIAL ONE (15:13)
[2022-03-04] MEDS ORDERED: HYDROMORPHONE HCL 0.5 MG/0.5 ML INJ ONE (17:09)
--- NOTE | 2022-03-04 19:06 | EDPHYS ---
Physician Documentation [facility] Name: Kiel Ngo Age: 71 yrs Sex: Male : 1950 Arrival Date: 03/04/2022 Time: 13:54 Bed 19 Private MD: ED Physician Scotty Guzman HPI: 03/04 13:55 This 71 yrs old Male presents to ER via EMS with complaints of Vomiting. jmm 13:55 The patient presents to the emergency department with nausea, vomiting. Onset: The jmm symptoms/episode began/occurred acutely, this morning. Possible causes: unknown. The symptoms are aggravated by nothing. The symptoms are alleviated by nothing. This is a 71-year-old male with history of atrial fibrillation, chronic back pain that presents emerged department with complaints of acute onset vomiting beginning earlier this morning. Patient states he does not have any abdominal pain, diarrhea, fever, chills.. Historical: - Allergies: 13:57 Demerol; ap3 13:57 metformin; ap3 13:57 Morphine; ap3 - PMHx: 13:57 Atrial fibrillation; chronic back pain; Chronic right leg pain; neuropathy; ap3 - PSHx: 13:57 back sx; PANCREAS SX; R. Ankle SX; ap3 - Immunization history:: Adult Immunizations up to date. - Social history:: Smoking status: Patient denies any tobacco usage or history of. ROS: 13:55 Constitutional: Negative for fever, chills, and weight loss, Cardiovascular: Negative jmm for chest pain, palpitations, and edema, Respiratory: Negative for shortness of breath, cough, wheezing, and pleuritic chest pain. 13:55 Abdomen/GI: Positive for vomiting, Negative for abdominal pain, diarrhea. 13:55 All other systems are negative. Exam: 13:55 Constitutional: This is a well developed, well nourished patient who is awake, alert, jmm and in no acute distress. Head/Face: atraumatic. Eyes: EOMI, no conjunctival erythema appreciated ENT: Moist Mucus Membranes Neck: Trachea midline, Supple Chest/axilla: Normal chest wall appearance and motion. Cardiovascular: Regular rate and rhythm. No edema appreciated Respiratory: Normal respirations, no respiratory distress appreciated 13:55 Back: Normal ROM Skin: General appearance color normal MS/ Extremity: Moves all extremities, no obvious deformities appreciated, no edema noted to the lower extremities Neuro: Awake and alert Psych: Behavior is normal, Mood is normal, Patient is cooperative and pleasant 13:55 Abdomen/GI: Inspection: abdomen appears normal, Bowel sounds: normal, Palpation: soft, nontender, in all quadrants. Vital Signs: 13:54 BP 147 / 98; Pulse 141; Temp 98(O); Weight 90.72 kg; Height 5 ft. 11 in. (180.34 cm); ap3 14:25 BP 129 / 76; Pulse 126; Pulse Ox 97% on R/A; ap3 15:16 BP 122 / 77; Pulse 128; ap3 16:10 BP 152 / 85; Pulse 133; Pulse Ox 99% ; ap3 17:02 BP 109 / 75; Pulse 119; ap3 18:07 BP 154 / 89; Pulse 117; Pulse Ox 98% on R/A; ap3 18:46 BP 167 / 95; Pulse 114; Pulse Ox 98% on R/A; ap3 19:02 Pulse 108; iw 13:54 Body Mass Index 27.89 (90.72 kg, 180.34 cm) ap3 MDM: 13:55 Patient medically screened. [facility] 19:05 Data reviewed: vital signs, nurses notes. Counseling: I had a detailed discussion with parris the patient and/or guardian regarding: the historical points, exam findings, and any diagnostic results supporting the discharge/admit diagnosis, lab results, the need for outpatient follow up, to return to the emergency department if symptoms worsen or persist or if there are any questions or concerns that arise at home. ED course: Patient states he feels much better. Patient able to tolerate p.o. in the ED. Abdomen is nontender to palpation. Patient otherwise given strict return precautions. Patient understood agrees plan of care.. 03/04 13:56 Order name: Basic Metabolic Panel; Complete Time: 14:46 [facility] 03/04 13:56 Order name: CBC with Diff; Complete Time: 14:46 [facility] 03/04 13:56 Order name: Troponin HS; Complete Time: 14:46 [facility] 03/04 13:57 Order name: Lipase; Complete Time: 14:46 [facility] 03/04 14:00 Order name: Procalcitonin; Complete Time: 14:54 [facility] 03/04 14:00 Order name: Lactate; Complete Time: 14:46 [facility] 03/04 13:56 Order name: EKG; Complete Time: 13:57 [facility] 03/04 14:00 Order name: Blood Culture Adult (2) [facility] 03/04 13:56 Order name: Cardiac monitoring; Complete Time: 14:00 [facility] 03/04 13:56 Order name: EKG - Nurse/Tech; Complete Time: 14:28 [facility] 03/04 13:56 Order name: IV Saline Lock; Complete Time: 14:00 [facility] 03/04 13:56 Order name: Labs collected and sent; Complete Time: 14:22 [facility] 03/04 13:56 Order name: O2 Per Protocol; Complete Time: 14:00 [facility] 03/04 13:56 Order name: O2 Sat Monitoring; Complete Time: 14:00 [facility] Administered Medications: 15:23 Drug: NS 0.9% 250 ml Route: IV; Rate: bolus; Site: right hand; ap3 17:09 Follow up: IV Status: Completed infusion ap3 15:23 Drug: Reglan (metoCLOPramide) 20 mg Route: IVP; Site: right hand; ap3 17:09 Follow up: Response: No adverse reaction ap3 15:23 Drug: diphenhydrAMINE 25 mg Route: IVP; Site: right hand; ap3 17:09 Follow up: Response: No adverse reaction ap3 15:23 Drug: Ativan (LORazepam) 1 mg Route: IVP; Site: right hand; ap3 17:09 Follow up: Response: No adverse reaction ap3 17:09 Drug: Dilaudid (HYDROmorphone) 0.5 mg Route: IVP; Site: right hand; ap3 18:08 Follow up: Response: No adverse reaction ap3 18:11 Drug: NS 0.9% 1000 ml Route: IV; Rate: 1 bolus; Site: right hand; ap3 20:05 Follow up: IV Status: Completed infusion; IV Intake: 1000ml sm5 Disposition: 19:05 Co-signature as Attending Physician, Scotty BENITO was immediately available on-site ms3 in the Emergency Department for consultation in the care of the patient.. Disposition Summary: 03/04/22 19:06 Discharge Ordered Location: Home [facility] Condition: Stable [facility] Diagnosis - Vomiting [facility] Followup: jmm - With: Private Physician - When: 2 - 3 days - Reason: Recheck today's complaints, Continuance of care, Re-evaluation by your physician Discharge Instructions: - Discharge Summary Sheet parris - Vomiting, Adult [facility] Forms: - Medication Reconciliation Form rachel - Thank You Letter parris - Antibiotic Education parris - Prescription Opioid Use parris Prescriptions: - ondansetron 4 mg Oral tablet,disintegrating - take 1 tablet by ORAL route every 4-6 hours As needed; 20 tablet; Refills: 0, [facility] Product Selection Permitted - Pepcid 20 mg Oral Tablet - take 1 tablet by ORAL route every 12 hours for 10 days; 20 tablet; Refills: 0, [facility] Product Selection Permitted Signatures: Dispatcher [employer] Kirby Castro PA PA jmm Prokisch, Amanda, RN RN ap3 Scotty Guzman DO DO ms3 Kelly Truong RN sm5
--- NOTE | 2022-03-04 19:06 | ER ---
Nurse's Notes [facility] Name: Kiel Ngo Age: 71 yrs Sex: Male : 1950 Arrival Date: 03/04/2022 Time: 13:54 Bed 19 Private MD: Diagnosis: Vomiting Presentation: 03/04 13:54 Chief complaint: Patient states: he has been "throwing up green stuff" for a few days ap3 now. patient denies any pain at this time, and states he has not been around anyone sick. Coronavirus screen: At this time, the client does not indicate any symptoms associated with coronavirus-19. Ebola Screen: No symptoms or risks identified at this time. Initial Sepsis Screen: Does the patient meet any 2 criteria? HR > 90 bpm. Does the patient have a suspected source of infection? No. Patient's initial sepsis screen is negative. Risk Assessment: Do you want to hurt yourself or someone else? Patient reports no desire to harm self or others. Onset of symptoms was March 01, 2022. 13:54 Method Of Arrival: EMS: [facility] ap3 13:54 Acuity: JOZEF 2 ap3 Triage Assessment: 13:59 General: Appears in no apparent distress. Behavior is calm, cooperative. Pain: Denies ap3 pain. Neuro: Level of Consciousness is awake, alert, obeys commands, Oriented to person, place, time, situation, Appropriate for age Speech is normal. Cardiovascular: Patient's skin is warm and dry. Cardiovascular:. Respiratory: Airway is patent Respiratory effort is even, unlabored. Historical: - Allergies: 13:57 Demerol; ap3 13:57 metformin; ap3 13:57 Morphine; ap3 - PMHx: 13:57 Atrial fibrillation; chronic back pain; Chronic right leg pain; neuropathy; ap3 - PSHx: 13:57 back sx; PANCREAS SX; R. Ankle SX; ap3 - Immunization history:: Adult Immunizations up to date. - Social history:: Smoking status: Patient denies any tobacco usage or history of. Screenin:57 Abuse screen: Denies threats or abuse. Nutritional screening: No deficits noted. ap3 Tuberculosis screening: No symptoms or risk factors identified. 13:59 Fall Risk Fall in past 12 months (25 points). Secondary diagnosis (15 points) impaired ap3 mobility, IV access (20 points). Ambulatory Aid- None/Bed Rest/Nurse Assist (0 pts). Gait- Impaired (20 pts.). Mental Status- Oriented to own ability (0 pts). Total Chow Fall Scale indicates High Risk Score (45 or more points). Fall prevention measures have been instituted. Side Rails Up X 2 Placed Close to Nursing Station Frequent Obs/Assessments Occuring As available patient and family educated on Fall Prevention Program and Strategies. Assessment: 16:10 Reassessment: Patient and/or family updated on plan of care and expected duration. Pain ap3 level reassessed. Patient is alert, oriented x 3, equal unlabored respirations, skin warm/dry/pink. Patient states symptoms have not improved. 16:36 Reassessment: Patient and/or family updated on plan of care and expected duration. Pain ap3 level reassessed. Patient is alert, oriented x 3, equal unlabored respirations, skin warm/dry/pink. 18:12 Reassessment: Patient and/or family updated on plan of care and expected duration. Pain ap3 level reassessed. Patient is alert, oriented x 3, equal unlabored respirations, skin warm/dry/pink. Patient states feeling better. Patient states symptoms have improved. 20:04 Reassessment: Patient and/or family updated on plan of care and expected duration. Pain sm5 level reassessed. Patient is alert, oriented x 3, equal unlabored respirations, skin warm/dry/pink. Vital Signs: 13:54 BP 147 / 98; Pulse 141; Temp 98(O); Weight 90.72 kg; Height 5 ft. 11 in. (180.34 cm); ap3 14:25 BP 129 / 76; Pulse 126; Pulse Ox 97% on R/A; ap3 15:16 BP 122 / 77; Pulse 128; ap3 16:10 BP 152 / 85; Pulse 133; Pulse Ox 99% ; ap3 17:02 BP 109 / 75; Pulse 119; ap3 18:07 BP 154 / 89; Pulse 117; Pulse Ox 98% on R/A; ap3 18:46 BP 167 / 95; Pulse 114; Pulse Ox 98% on R/A; ap3 19:02 Pulse 108; iw 13:54 Body Mass Index 27.89 (90.72 kg, 180.34 cm) ap3 ED Course: 13:54 Patient arrived in ED. ap3 13:55 [facility] 13:55 Scotty Guzman DO is Attending Physician. [facility] 13:57 Triage completed. ap3 13:57 Arm band placed on right wrist. ap3 14:22 Katharine Boogie RN is Primary Nurse. ap3 14:25 Patient has correct armband on for positive identification. Bed in low position. Call ap3 light in reach. Side rails up X2. artificial intelligence specialist on. Pulse ox on. NIBP on. Door closed. Noise minimized. 14:32 EKG done, by ED staff, reviewed by Kirby AVELAR. em1 14:32 Maintain EMS IV. Dressing intact. Good blood return noted. Site clean \\T\\ dry. Gauge \\T\\ ap 3 site: 20g right hand. 16:36 Nurse Practitioner and/or Physician Channeler Outsole to see patient. ap3 19:11 Primary Nurse role handed off by Katharine Boogie, RN mw2 20:05 No provider procedures requiring assistance completed. IV discontinued, intact, sm5 bleeding controlled, No redness/swelling at site. Pressure dressing applied. Administered Medications: 15:23 Drug: NS 0.9% 250 ml Route: IV; Rate: bolus; Site: right hand; ap3 17:09 Follow up: IV Status: Completed infusion ap3 15:23 Drug: Reglan (metoCLOPramide) 20 mg Route: IVP; Site: right hand; ap3 17:09 Follow up: Response: No adverse reaction ap3 15:23 Drug: diphenhydrAMINE 25 mg Route: IVP; Site: right hand; ap3 17:09 Follow up: Response: No adverse reaction ap3 15:23 Drug: Ativan (LORazepam) 1 mg Route: IVP; Site: right hand; ap3 17:09 Follow up: Response: No adverse reaction ap3 17:09 Drug: Dilaudid (HYDROmorphone) 0.5 mg Route: IVP; Site: right hand; ap3 18:08 Follow up: Response: No adverse reaction ap3 18:11 Drug: NS 0.9% 1000 ml Route: IV; Rate: 1 bolus; Site: right hand; ap3 20:05 Follow up: IV Status: Completed infusion; IV Intake: 1000ml 5 Medication: 13:58 VIS not applicable for this client. ap3 Intake: 20:05 IV: 1000ml; Total: 1000ml. 5 Outcome: 19:06 Discharge ordered by . parris 20:05 Discharged to home via ambulance. 5 20:05 Condition: stable 20:05 Discharge instructions given to patient, Instructed on discharge instructions, follow up and referral plans. medication usage, Demonstrated understanding of instructions, follow-up care, medications, Prescriptions given X 2. 20:05 Patient left the ED. 5 Signatures: Kirby Short PA PA jmm Williams, Irene, RN RN Saman Owen em1 Katharine Boogie RN RN ap3 Redd Alan 2 Kelly Truong RN RN 5
[2022-03-04 20:10] VITALS: TEMP 98
[2022-03-04 20:16] VITALS: O2SAT 98
[2022-03-04 20:18] VITALS: BP 167/95
--- NOTE | 2022-03-05 09:11 | EKG ---
Test Date: 2022-03-04 Test Time: 14:25:36 Embossing Clerk: [place] MEASUREMENT RESULTS: Intervals: Rate: 126 [place]: 144 QRSD: 70 QT: 322 QTc: 466 [place]: P: 43 [place]: 144 QRS: 16 T: 31 INTERPRETIVE STATEMENTS: Sinus tachycardia with premature atrial complexes Low voltage QRS Borderline ECG Compared to ECG 12/03/2021 11:17:21 Atrial premature complex(es) now present Fusion complex(es) no longer present Myocardial infarct finding no longer present Electronically Signed On 03-05-22 09:08:15 CDT by Ned Allen
== END 2022-03-04 20:05 | disposition home or self-care (01) ==
LOC: ER 13:51
DX: R11.10 Vomiting, unspecified (principal); I48.91 Unspecified atrial fibrillation; Z88.6 Allergy status to analgesic agent
CPT/HCPCS: 96365; 96361; 93005; 87040 ×2; 85025; 80048; 36415; 87205; 83605; 84484; 83690; 84145; 96375; 99284; 96366; J2765; J1200; J1170; J7050

== ENCOUNTER 2022-03-13 17:39 | Emergency (ER) | payer OTHER ==
--- OUTSIDE RECORDS SUMMARY | 2022-03-13 17:46 | XMS REPORT | Continuity of Care Document ---
:1950 Author Organization [facility] [place] t Address [address] [place] [address] [place] [id number] Care Team Providers Name Role Phone DIOGENES [...] Policy Number Effective Date Expiration Date S [facility] MEDICARE PART A [id number] 2007 \\T\\ B 00:00:00 [employer] INDEMNITY [id number] 2016 00:00:00 MEDICARE PART A [id number] 2014 \\T\\ B - MEDICARE 00:00:00 INDEMNITY/TRADITIO [id number] NAL CHOICE - [employer] 00:00:00 Problems Condition [...] rs LFTs LFTs 2-05 ity of 00:00: [place] 00 Medical Branch Cellulitis Cellulitis Disease Active U nivers 2-04 ity of 00:00: Medical Branch Rash Rash Disease Active 2019- Univers 1-09 ity of 00:00: [place] 00 Medical Branch Allergies, Adverse Reactions, Alerts Allergy Allergy Status Severity Reaction(s) Onset Inactive Treating Comm ents Source Name Type Date Date Clinician Garza Propensi Active Rash 2020- Univers ty to [...] vers NE INGREDI 3-16 ity of 00:00: [place] 00 [facility] Branch GLIMEPIR DRUG Active Hives Univers EFREN INGREDI 3-16 ity of 00:00: [place] [address] Medical Branch METFORMI DRUG Active ITCHING Univers N INGREDI 3-16 ity of 00:00: [place] [address] Medical Branch Social History Social Habit Start Date Stop Date Quantity Comments Source Exposure to Not sure University of SARS-CoV-2 [facility] (event) Branch History of Chews Tobacco University of tobacco use [facility] History NDOH 2020-11-17 2020-11-17 5 University o f Financial 00:00:00 00:00:00 [facility] Branch History [facility] Food 2020-11-17 2020-11-17 1 Univers ity of Worry 00:00:00 00:00:00 [facility] History [facility] Food 2020-11-17 2020-11-17 1 Univers ity of Scarcity 00:00:00 00:00:00 [facility] History [facility] 2020-11-17 2020-11-17 1 University o f Transport Med 00:00:00 00:00:00 [facility] al Branch History [facility] 2020-11-17 2020-11-17 1 University o f Transport Non-Med 00:00:00 00:00:00 [facility] edical Branch Education 2020-11-16 2020-11-16 21 [place] of 00:00:00 00:00:00 [facility] Alcohol intake 2020-11-16 2020-11-16 Ex-drinker [place] of 00:00:00 00:00:00 (finding) [facility] Tobacco use and 2020-08-21 2020-08-21 Former user Universi ty of exposure 00:00:00 00:00:00 [facility] Tobacco Comment 2020-08-21 2020-08-21 quit 10 years Univer sity of 00:00:00 00:00:00 ago, started in [place] Med ical 2nd year of Branch college (~40 years) Alcohol Comment 2020-08-21 2020-08-21 Used to have 2-3 Uni versity of 00:00:00 00:00:00 six-packs of [place] Medica l beer daily x 20 Branch years, quit 2005 History [facility] 2020-08-21 2020-08-21 99 University o f Alcohol Frequency 00:00:00 00:00:00 [place] M edical Branch History [facility] 2020-08-21 2020-08-21 99 [place] o f Alcohol Std 00:00:00 00:00:00 [place] Medical Drinks Branch History [facility] 2020-08-21 2020-08-21 99 [place] o f Alcohol Binge 00:00:00 00:00:00 [facility] al Branch Sex [birth year] Universit y of 00:00:00 00:00:00 [facility] Smoking Status Start Date Stop [...] 0845, Until Discontinu ed, Routine amLODIPine Yes [id number] 10mg Take 1 Univers 10 mg 3-07 tablet by ity of tablet 00:00: mouth [place] 00 daily. Medical Branch clotrimazol 0 Yes [id number] Apply to Univers e 1 % 3-07 face/ears, ity of topical 00:00: armpits, [place] cream 00 pannus and Medical back/any Branch other rash twice a day fluocinonid 0 Yes [id number] Apply to Univers e 0.05 % 3-07 scalp ity of solution 00:00: twice a [place] 00 day Medical Branch triamcinolo 2020-0 Yes [id number] Apply to Univers ne 3-07 back, ity of acetonide 00:00: armpits [place] 0.1 % cream 00 and other Med ical affected Branch areas twice daily, please mix with clotrimazo le hydrOXYzine Yes [id number] 10mg Take 1 Univers 10 mg 3-07 tablet by ity of tablet 00:00: mouth 2 00 (two) Medical times Branch daily. amLODIPine 0 Yes [id number] 10mg Take 1 Univers 10 mg 3-07 tablet by ity of tablet 00:00: mouth 00 daily. Medical Branch clotrimazol 2020-0 Yes [id number] Apply to Univers e 1 % 3-07 face/ears, ity of topical 00:00: armpits, [place] cream 00 pannus and Medical back/any Branch other rash twice a day fluocinonid 2020-0 Yes [id number] Apply to Univers e 0.05 % 3-07 scalp ity of solution 00:00: twice a day Medical Branch triamcinolo 0 Yes [id number] Apply to Univers ne 3-07 back, ity of acetonide 00:00: armpits [place] 0.1 % cream 00 and other Med ical affected Branch areas twice daily, please mix with clotrimazo le hydrOXYzine Yes [id number] 10mg Take 1 Univers 10 mg 3-07 tablet by ity of tablet 00:00: mouth 2 (two) Medical times Branch daily. amLODIPine Yes [id number] 10mg Take 1 Univers 10 mg 3-07 tablet by ity of tablet 00:00: mouth 00 daily. Medical Branch clotrimazol 0 Yes [id number] Apply to Univers e 1 % 3-07 face/ears, ity of topical 00:00: armpits, [place] cream 00 pannus and Medical back/any Branch other rash twice a day fluocinonid 2020-0 Yes [id number] Apply to Univers e 0.05 % 3-07 scalp ity of solution 00:00: twice a [place] 00 day Medical Branch triamcinolo 2020-0 Yes [id number] Apply to Univers ne 3-07 back, ity of acetonide 00:00: armpits [place] 0.1 % cream 00 and other Med ical affected Branch areas twice daily, please mix with clotrimazo le hydrOXYzine Yes [id number] 10mg Take 1 Univers 10 mg 3-07 tablet by ity of tablet 00:00: mouth 2 [place] 00 (two) Medical times Branch daily. amLODIPine Yes [id number] 10mg Take 1 Univers 10 mg 3-07 tablet by ity of tablet 00:00: mouth [place] 00 daily. Medical Branch clotrimazol Yes [id number] Apply to Univers e 1 % 3-07 face/ears, ity of topical 00:00: armpits, [place] cream 00 pannus and Medical back/any Branch other rash twice a day fluocinonid Yes [id number] Apply to Univers e 0.05 % 12-17 scalp ity of solution 00:00: twice a [place] 00 day Medical Branch triamcinolo Yes [id number] Apply to Univers ne 3-07 back, ity of acetonide 00:00: armpits [place] 0.1 % cream 00 and other Med ical affected Branch areas twice daily, please mix with clotrimazo le hydrOXYzine Yes [id number] 10mg Take 1 Univers 10 mg 3-07 tablet by ity of tablet 00:00: mouth 2 [place] 00 (two) Medical times Branch daily. cephALEXin 2020-2020- No [id number] 500mg Take 1 Univers 500 mg 3-04 14- capsule by ity of capsule 00:00: 05:59 mouth [place] 00 :00 every 6 Medical (six) Branch hours for 3 days. cephALEXin 2020-0 2020- No [id number] 500mg Take 1 Univers 500 mg 3-04 14-11 capsule by ity of capsule 00:00: 05:59 mouth [place] 00 :00 every 6 Medical (six) Branch hours for 3 days. hydrOXYzine 2020-0 2020- No [id number] 10mg Take 1 Univers 10 mg 3-04 14-07 tablet by ity of tablet 00:00: 00:00 mouth 2 [place] 00 :00 (two) Medical times Branch daily. morpHINE Yes 4mg 4 mg, Slow Uni vers injection 4 - IV Push, ity of mg 22:40: Q6HPRN, [place] 02 Starting Medical 12/16/20 Branch at 1640, [...] IV [place] 500 mL 00 :00 Piggyback, [facility] ONCE, 1 Branch dose, Fri12/15/20 at 1000, STAT HYDROmorpho Yes 4mg 4 mg, Unive rs ne 12-15 Oral, BID, ity of (DILAUDID) 15:30: First dose [place] tablet 4 mg 00 (after Medica l last Branch modificati on) on Fri12/15/20 at 0930, Until Discontinu ed, Routine amLODIPine 2020- No [id number] 10mg Take 1 Univers 10 mg 12-15 tablet by ity of tablet 00:00: 00:00 mouth [place] 00 :00 daily. Medical Branch HYDROmorpho No 1mg 1 mg, Univ ers ne 12-14 Oral, ity of (DILAUDID) 17:35: 15:18 Q6HPRN, [place] tablet 1 mg 30 :06 Starting Medi jose c [facility] 12/14/20 Branch at 1135, Until Fri12/15/20 at 0918, Routine, Pain (scale 7-10) hydrOXYzine Yes 10mg 10 mg, Univ ers (ATARAX) 12-14 Oral, BID, ity o f tablet 10 17:30: First dose [place] mg 00 on [facility] Medical 12/14/20 at Branch 1130, Until Discontinu ed, Routine lisinopriL Yes 5mg 5 mg, Univer s (PRINIVIL,Z 12-14 Oral, ity of ESTRIL) 17:30: DAILY, [place] tablet 5 mg 00 First dose Me dical on [facility] Branch 12/14/20 at 1130, Until Discontinu ed, Routine triamcinolo 2020- No [id number] Apply to [facility] ne 12-14 back, ity of acetonide 00:00: 00:00 armpits [place] 0.1 % cream 00 :00 and other Med ical affected Branch areas twice daily, please mix with clotrimazo le clotrimazol 2020- No [id number] Apply to Univers e 1 % 12-14 face/ears, ity of topical 00:00: 00:00 armpits, [place] cream 00 :00 pannus and Medical back/any Branch other rash twice a day fluocinonid 2020- No [id number] Apply to Univers e 0.05 % 12-14 scalp ity of solution 00:00: 00:00 twice a [place] 00 :00 day Medical Branch hydrOXYzine 2020- No [id number] 10mg Take 1 Univers 10 mg 12-14 [...] IV Push, ity of (PF)) 10:07: Q6HPRN, [place] injection 4 28 Starting Medi jose c mg 12/13/20 Branch at 0407, Until Discontinu ed, Routine, Nausea and Vomiting (N/V) ondansetron 2020- No 4mg 4 mg, Slow Univers (ZOFRAN 12-13 03-03 IV Push, ity of (PF)) 04:55: 05:44 ONCE, 1 [place] injection 4 00 :00 dose, [facility] ical mg 12/12/20 at Branch 2300, Routine traMADoL 2020- No 50mg 50 mg, Univer s (ULTRAM) 3 03-03 Oral, ity of tablet 50 03:45: 03:34 ONCE, 1 [place] mg 00 :00 dose, [facility] 12/12/20 at Branch 2145, Routine insulin Yes 15U 15 Units, [facility] gl[facility] 12-12 Subcutaneo ity o f (LANTUS 15:00: us, DAILY, [place] U-100) 00 First dose Medical injection on [facility] 15 Units 12/12/20 at 0900, Until Discontinu ed hydrOXYzine 2020- No 10mg 10 mg, Uni vers (ATARAX) 12-12 03-02 Oral, ity of tablet 10 08:15: 07:33 ONCE, 1 [place] mg 00 :00 dose, [facility] 12/12/20 at Branch 0215, Routine mirtazapine Yes 7.5mg 7.5 mg, Un toi (REMERON) 3-02 Oral, QHS, ity of tablet 7.5 03:00: First dose [place] mg 00 on [facility] 12/11/20 at Branch 2100, Until [...] Oral, ity of (TYLENOL 23:23: 13:49 Q6HPRN, [place] #3) 300-30 43 :08 Starting Medic al [...] of 1,000 mg in 19:00: 17:35 Piggyback, [place] NaCl 0.9% 00 :26 Q8H ABX, Medica [...] ed, Routine insulin Yes 5U 5 Units, [facility] s lispro 12-11 Subcutaneo ity of (human) 18:00: us, TID [place] (HumaLOG 00 MEALS, Medical U-100) First dose Branch injection 5 on Fri Units 12/11/20 at 1200, Until Discontinu ed Polyethylen Yes 17g 17 g, [facility] rs e Glycol 12-11 Oral, ity of 3350 17:47: [id number], [place] (MIRALAX) 05 Starting Medica l powder 17 g Fri12/11/20 Br anch at 1147, Until Discontinu ed, Routine, Constipati on acetaminoph Yes 650mg 650 mg, Un toi en 12-11 Oral, ity of (TYLENOL) 16:51: Q6HPRN, [place] tablet 650 28 Starting Medic al mg [...]
Duration of therapy: 72 hours sennosides- Yes [id number] 1{tbl} Take 1 Univers docusate 2- tablet by ity of sodium 00:00: mouth 2 [place] 8.6-50 mg 00 (two) Medical per tablet times Branch daily. hydrocortis Yes [id number] Apply to [facility] one 2.5 % 11-21 affected ity of cream 00:00: area(s) 2 [place] 00 (two) Medical times Branch daily. blood sugar Yes [id number] Use to [facility] diagnostic 11-21 check ity of (FREESTYLE 00:00: blood [place] LITE 00 glucose Medical STRIPS) 4-5 times Branch strip daily. Polyethylen Yes [id number] 17g Take 1 Univers e Glycol 11-21 Packet by ity of 3350 17 00:00: mouth [place] gram powder 00 every 24 Medi jose c (twenty-fo Branch ur) hours as needed for Constipati on. sennosides- Yes [id number] 1{tbl} Take 1 Univers docusate 2-09 tablet by ity of sodium 00:00: mouth 2 [place] 8.6-50 mg 00 (two) Medical per tablet times Branch daily. hydrocortis 2020-0 Yes [id number] Apply to Univers one 2.5 % 2-09 affected ity of cream 00:00: area(s) 2 [place] 00 (two) Medical times Branch daily. blood sugar 2020-0 Yes [id number] Use to Univers diagnostic 11-21 check ity of (FREESTYLE 00:00: blood [place] LITE 00 glucose Medical STRIPS) 4-5 times Branch strip daily. Polyethylen 2020-0 Yes [id number] 17g Take 1 Univers e Glycol 2-09 Packet by ity of 3350 17 00:00: mouth [place] gram powder 00 every 24 Medi jose c (twenty-fo Branch ur) hours as needed for Constipati on. sennosides- 0 Yes [id number] 1{tbl} Take 1 Univers docusate 2-09 tablet by ity of sodium 00:00: mouth 2 [place] 8.6-50 mg 00 (two) Medical per tablet times Branch daily. hydrocortis 2020- Yes [id number] Apply to Univers one 2.5 % 2-09 affected ity of cream 00:00: area(s) 2 [place] 00 (two) Medical times Branch daily. blood sugar 2020- Yes [id number] Use to [facility] diagnostic 11-21 check ity of (FREESTYLE 00:00: blood [place] LITE 00 glucose Medical STRIPS) 4-5 times Branch strip daily. Polyethylen 2020-0 Yes [id number] 17g Take 1 Univers e Glycol 2-09 Packet by ity of 3350 17 00:00: mouth [place] gram powder 00 every 24 Medi jose c (twenty-fo Branch ur) hours as needed for Constipati on. sennosides- 2020-0 Yes [id number] 1{tbl} Take 1 Univers docusate 2-09 tablet by ity of sodium 00:00: mouth 2 [place] 8.6-50 mg 00 (two) Medical per tablet times Branch daily. hydrocortis 2020-0 Yes [id number] Apply to Univers one 2.5 % 2-09 affected ity of cream 00:00: area(s) 2 [place] 00 (two) Medical times Branch daily. blood sugar Yes [id number] Use to [facility] diagnostic 11-21 check ity of (FREESTYLE 00:00: blood [place] LITE 00 glucose Medical STRIPS) 4-5 times Branch strip daily. Polyethylen Yes [id number] 17g Take 1 Univers e Glycol 11-21 Packet by ity of 3350 17 00:00: mouth [place] gram powder 00 every 24 Medi jose c (twenty-fo Branch ur) hours as needed for Constipati on. Insulin 2020- No [id number] 15U inject 15 Univers Glargine 11-21 Units ity of (LANTUS 00:00: 05:59 under the [place] SOLOSTAR 00 :00 skin every Medic al U-100 morning Branch INSULIN) for 30 100 unit/mL days. (3 mL) injection venlafaxine 2020- No [id number] 150mg Take 1 Univers XR 150 mg 11-21 capsule by ity of 24 hr 00:00: 05:59 mouth 3 [place] capsule 00 :00 (three) Medical times Branch daily for 30 days. Insulin 2020- No [id number] 15U inject 15 Univers Glargine 11-21 Units ity of (LANTUS 00:00: 05:59 under the [place] SOLOSTAR 00 :00 skin every Medic al U-100 morning Branch INSULIN) for 30 100 unit/mL days. (3 mL) injection venlafaxine 2020- No [id number] 150mg Take 1 Univers XR 150 mg 11-21 capsule by ity of 24 hr 00:00: 05:59 mouth 3 [place] capsule 00 :00 (three) Medical times Branch daily for 30 days. triamcinolo 2020- No [id number] Apply to [facility] ne 11-21 area(s) 2 ity of acetonide 00:00: 00:00 (two) [place] 0.1 % cream 00 :00 times Medical daily. Branch cephALEXin 2020- No [id number] 1000mg Take 2 Univers 500 mg 11-21 capsules ity of capsule 00:00: 00:00 by mouth 3 [place] 00 :00 (three) Medical times Branch daily. doxycycline 2020- No [id number] 100mg Take 1 Univers hyclate 100 11-21 capsule by i ty of mg capsule 00:00: 00:00 mouth [place] 00 :00 every 12 Medical (twelve) Branch hours. lactobacill 2020- No [id number] 1{tbl} Take 1 Univers us 11-21 tablet by ity of acidophilus 00:00: 00:00 mouth 2 [place] 25 million 00 :00 (two) Medical cell -100 times Branch mg captab daily. bisacodyL 2020- No [id number] 10mg Insert 1 Univers 10 mg 11-21 Suppositor ity of suppository 00:00: 00:00 y into [place] 00 :00 rectum at Medical bedtime as Branch needed for Constipati on. ALPRAZolam 2020- No [id number] .25mg Take 1 Univers (XANAX) 11-21 tablet by ity of 0.25 mg 00:00: 00:00 mouth 2 [place] tablet 00 :00 (two) Medical times Branch daily. hydrOXYzine 2020- No [id number] 20mg Take 2 Univers 10 mg 11-21 [...] Units ity of (LANTUS 01:13: under the [place] SOLOSTAR) 36 skin. Medical 100 unit/mL Branch [...] Units ity of (LANTUS 01:13: under the [place] SOLOSTAR) 36 skin. Medical 100 unit/mL Branch [...] Units ity of (LANTUS 01:13: under the [place] SOLOSTAR) 36 skin. Medical 100 unit/mL Branch [...] Units ity of (LANTUS 01:13: under the [place] SOLOSTAR) 36 skin. Medical 100 unit/mL Branch [...] Units ity of (LANTUS 01:13: under the [place] SOLOSTAR) 36 skin. Medical 100 unit/mL Branch (3 mL) InPn INSULIN 2019-10 Yes 5U inject 5 Univer s ASPART 1-12 Units ity of (NOVOLOG 01:13: under the [facility] FLEXPEN SC) 36 skin. Medical Branch ALPRAZolam [...] Units ity of (LANTUS 01:13: under the [place] SOLOSTAR) 36 skin. Medical 100 unit/mL Branch [...] 34 :00 Medical Branch hydrocortis 2019- Yes [id number] Apply to Univers one 2.5 % 1-11 affected ity of cream 00:00: area(s) 2 [place] 00 (two) Medical times Branch daily. hydrOXYzine 2019- Yes [id number] 20mg Take 2 Univers 10 mg 1-11 tablets by ity of tablet 00:00: mouth [place] 00 every 8 Medical (eight) Branch hours as needed for Itching or Anxiety. Polyethylen 2019- Yes [id number] 17g Take 1 Univers e Glycol 1-11 Packet by ity of 3350 17 00:00: mouth [place] gram powder 00 every 24 Medi jose c (twenty-fo Branch ur) hours as needed for Constipati on. hydrocortis 2019-10 Yes [id number] Apply to Univers one 2.5 % 1-11 affected ity of cream 00:00: area(s) 2 [place] 00 (two) Medical times Branch daily. hydrOXYzine 2019- Yes [id number] 20mg Take 2 Univers 10 mg 1-11 tablets by ity of tablet 00:00: mouth [place] 00 every 8 Medical (eight) Branch hours as needed for Itching or Anxiety. Polyethylen 2019- Yes [id number] 17g Take 1 Univers e Glycol 1-11 Packet by ity of 3350 17 00:00: mouth [place] gram powder 00 every 24 Medi jose c (twenty-fo Branch ur) hours as needed for Constipati on. hydrocortis 2019- Yes [id number] Apply to Univers one 2.5 % 1-11 affected ity of cream 00:00: area(s) 2 [place] 00 (two) Medical times Branch daily. hydrOXYzine 2019- Yes [id number] 20mg Take 2 Univers 10 mg 1-11 tablets by ity of tablet 00:00: mouth [place] 00 every 8 Medical (eight) Branch hours as needed for Itching or Anxiety. Polyethylen 2020- Yes [id number] 17g Take 1 Univers e Glycol 1-11 Packet by ity of 3350 17 00:00: mouth [place] gram powder 00 every 24 Medi jose c (twenty-fo Branch ur) hours as needed for Constipati on. hydrocortis 2019- Yes [id number] Apply to Univers one 2.5 % 1-11 affected ity of cream 00:00: area(s) 2 [place] (two) Medical times Branch daily. hydrOXYzine 2019- Yes [id number] 20mg Take 2 Univers 10 mg 1-11 tablets by ity of tablet 00:00: mouth [place] 00 every 8 Medical (eight) Branch hours as needed for Itching or Anxiety. Polyethylen 2019- Yes [id number] 17g Take 1 Univers e Glycol 1-11 Packet by ity of 3350 17 00:00: mouth [place] gram powder 00 every 24 Medi jose c (twenty- Branch ur) hours as needed for Constipati on. hydrocortis 2019- Yes [id number] Apply to Univers one 2.5 % 1-11 affected ity of cream 00:00: area(s) 2 [place] 00 (two) Medical times Branch daily. hydrOXYzine 2019- Yes [id number] 20mg Take 2 Univers 10 mg 1-11 tablets by ity of tablet 00:00: mouth [place] 00 every 8 Medical (eight) Branch hours as needed for Itching or Anxiety. Polyethylen 2020- Yes [id number] 17g Take 1 Univers e Glycol 1-11 Packet by ity of 3350 17 00:00: mouth [place] gram powder 00 every 24 Medi jose c (twenty-fo Branch ur) hours as needed for Constipati on. hydrocortis 2019- Yes [id number] Apply to Univers one 2.5 % 1-11 affected ity of cream 00:00: area(s) 2 [place] 00 (two) Medical times Branch daily. hydrOXYzine 2019- Yes [id number] 20mg Take 2 Univers 10 mg 1-11 tablets by ity of tablet 00:00: mouth [place] 00 every 8 Medical (eight) Branch hours as needed for Itching or Anxiety. Polyethylen 2020- Yes [id number] 17g Take 1 Univers e Glycol 1-11 Packet by ity of 3350 17 00:00: mouth [place] gram powder 00 every 24 Medi jose c (twenty-fo Branch ur) hours as needed for Constipati on. hydrocortis 2019-10 Yes [id number] Apply to Univers one 2.5 % 1-11 affected ity of cream 00:00: area(s) 2 [place] 00 (two) Medical times Branch daily. hydrOXYzine 2019-10 Yes [id number] 20mg Take 2 Univers 10 mg 1-11 tablets by ity of tablet 00:00: mouth [place] 00 every 8 Medical (eight) Branch hours as needed for Itching or Anxiety. Polyethylen 2019-10 Yes [id number] 17g Take 1 Univers e Glycol 1-11 Packet by ity of 3350 17 00:00: mouth [place] gram powder 00 every 24 Medi jose c (twenty-fo Branch ur) hours as needed for Constipati on. triamcinolo 2019-10 2020- No [id number] Apply to [facility] 10-23 area(s) 2 ity of acetonide 00:00: 05:59 (two) [place] 0.1 % cream 00 :00 times Medical daily for Branch 14 days. triamcinolo 2019-10 2020- No [id number] Apply to [facility] 10-23 area(s) 2 ity of acetonide 00:00: 05:59 (two) [place] 0.1 % cream 00 :00 times Medical daily for Branch 14 days. triamcinolo 2019-10 2020- No [id number] Apply to [facility] 10-23 area(s) 2 ity of acetonide 00:00: 05:59 (two) [place] 0.1 % cream 00 :00 times Medical daily for Branch 14 days. KCL 2019-10 2020- No 40meq 40 mEq, Univers (KLOR-CON -07 23- Oral, ONCE ity of M20) tablet 16:15: 16:23 NOW, 1 [place] 40 mEq 00 :00 dose, [facility] Medical 08/22/20 Branch at 1015, Routine HYDROmorpho 2019-10 Yes 1mg 1 mg, Unive rs ne 1- Oral, ity of (DILAUDID) 15:07: Q6HPRN, [place] tablet 1 mg 53 Starting Medi jose c [facility] Branch 08/22/20 at 0907, Until Discontinu ed, Routine, Pain (scale 7-10) hydrocortis 2019- Yes Topical Uni vers one 2.5 % 1-10 (Apply To ity o f cream 02:00: Affected [place] 00 Areas), Medical BID, First Branch dose on 08/21/20 at 2000, Until Discontinu ed, Routine triamcinolo 2019- Yes Topical, Un toi ne 1-10 BID, First ity of acetonide 02:00: dose on [place] (TRIDERM) 00 Mon Medical 0.1 % cream [...] First dose Me dical 8.6-50 mg on [facility] Branch per tablet 08/21/20 at 1 tablet 0900, Until Discontinu ed, Routine hydrocortis 2019-10 2020- No Topical Un toi one 1 % 10-21- (Apply To ity of cream 15:00: 22:54 Affected [place] 00 :48 Areas), Medical DAILY, Branch First dose on Fri08/21/20 at 0900, Until Discontinu ed, Routine venlafaxine 2019-10 Yes 150mg 150 mg, Un toi XR (EFFEXOR 09 Oral, TID, it y of XR) 24 hr 14:00: First dose [place] capsule 150 00 on [facility] Medica l mg 08/21/20 at Branch 0800, Until Discontinu ed, Routine heparin 2019-10 Yes 5000U 5,000 Univers (porcine) 10-21 Units, ity of injection 14:00: Subcutaneo [place] 5,000 Units 00 us, Q12H, Med ical First dose Branch on Fri08/21/20 at 0800, Until Discontinu ed, Routine diphenhydrA 2019-10 2020- No 25mg 25 mg, Uni vers MINE 1-09 11-09 Oral, ity of (BENADRYL) 12:56: 17:39 Q8HPRN, [place] tablet 25 59 :43 Starting Medica l mg [facility] 08/21/20 at 0656, Until [facility] 08/21/20 at 1139, Routine, Itching, Mild Rash, Congestion /Allergies , alternate with hydroxyzin e hydrOXYzine 2019-10- No 10mg 10 mg, Uni vers (ATARAX) 10-21 Oral, ity of tablet 10 10:20: 12:57 Q6HPRN, [place] mg 22 :12 Starting [facility] 08/21/20 at 0420, Until [facility] [...] 1 ity o f 09:30: 09:14 dose, [facility] 00 :00 08/21/20 at [facility] 0330, Branch Routine Polyethylen 2019-10 Yes 17g 17 g, [facility] rs e Glycol 10-21 Oral, ity of 3350 08:29: [id number], [place] (MIRALAX) Starting Medica l powder 17 g [facility] 08/21/20 at 0229, Until Discontinu ed, Routine, Constipati on lanolin 2019-10 Yes Topical, Univer s alcohol-mo- 10-21 PRN, ity of w.pet-ceres 08:26: Starting [place] (EUCERIN) 30 [facility] cream 08/21/20 at Branch 0226, Until Discontinu ed, Routine, Dermatitis /Rash ALPRAZolam 2019-10 Yes .25mg 0.25 mg, Un toi (XANAX) 10-21 Oral, ity of tablet 0.25 08:25: BIDPRN, [place] mg 41 Starting [facility] 08/21/20 at 0225, Until Discontinu ed, [...] hours. Branch blood sugar Yes Use to [employer] [facility] diagnostic 4-25 check ity of (FREESTYLE 00:00: blood [place] LITE 00 glucose Medical STRIPS) 4-5 times Branch strip daily. blood sugar Yes Use to [employer] [facility] diagnostic 4-25 check ity of (FREESTYLE 00:00: blood [place] LITE 00 glucose Medical STRIPS) 4-5 times Branch strip daily. blood sugar Yes Use to [employer] ers diagnostic 4-25 check ity of (FREESTYLE 00:00: blood [place] LITE 00 glucose Medical STRIPS) 4-5 times Branch strip daily. blood sugar Yes Use to [employer] ers diagnostic 4-25 check ity of (FREESTYLE 00:00: blood [place] LITE 00 glucose Medical STRIPS) 4-5 times Branch strip daily. blood sugar Yes Use to [employer] ers diagnostic 4-25 check ity of (FREESTYLE [...] 13:00:00 148 mm[Hg] Univer sity of pressure [place] [facility] Diastolic blood 2021-08-22 13:00:00 84 mm[Hg] Unive rsity of pressure [place] [facility] Heart rate 2021-08-22 13:00:00 103 /min [facility] Respiratory rate 2021-08-22 13:00:00 18 /min Univ ersity of [facility] Branch Oxygen saturation in 2021-08-22 13:00:00 95 /min University of Arterial blood by [facility] Pulse oximetry Branch Body temperature 2021-08-22 12:22:00 36.72 [facility] ersity of [place] [facility] Systolic blood 2020-12-17 18:35:00 139 mm[Hg] Univer sity of pressure [place] [facility] Diastolic blood 2020-12-17 18:35:00 87 mm[Hg] Unive rsity of pressure [place] [facility] Heart rate 2020-12-17 18:35:00 110 /min [facility] Body temperature 2020-12-17 18:35:00 37.72 [facility] ersity of [place] [facility] Respiratory rate 2020-12-17 18:35:00 18 /min Univ ersity of [place] [facility] Oxygen saturation in 2020-12-17 18:35:00 93 /min University of Arterial blood by [place] [facility] [employer] [facility] Pulse oximetry Branch Body height 2020-12-12 08:21:00 180.3 cm [facility] Body weight 2020-12-12 08:21:00 103.42 kg [facility] BMI 2020-12-12 08:21:00 31.80 kg/m2 [facility] Systolic blood 2020-12-17 18:35:00 139 mm[Hg] Univer sity of pressure [place] [facility] Diastolic blood 2020-12-17 18:35:00 87 mm[Hg] Unive rsity of pressure [place] [facility] Heart rate 2020-12-17 18:35:00 110 /min Universi ty of [place] [facility] Body temperature 2020-12-17 18:35:00 37.72 [facility] Univ ersity of [place] [facility] Respiratory rate 2020-12-17 18:35:00 18 /min Univ ersity of [place] [facility] Oxygen saturation in 2020-12-17 18:35:00 93 /min University of Arterial blood by [place] [facility] [employer] [facility] jose c Pulse oximetry Branch Body height 2020-12-12 08:21:00 180.3 cm Universi ty of [place] [facility] [place] Body weight 2020-12-12 08:21:00 103.42 kg Universi ty [facility] [place] [facility] BMI 2020-12-12 08:21:00 31.80 kg/m2 Universi ty [facility] [place] [facility] Systolic blood 2020-08-23 19:27:00 140 mm[Hg] Univer sity of pressure [place] [facility] Diastolic blood 2020-08-23 19:27:00 79 mm[Hg] Unive rsity of pressure [place] [facility] Heart rate 2020-08-23 19:27:00 99 /min Universi ty of [place] [facility] Body temperature 2020-08-23 19:27:00 36 [place] Univ ersity of [place] [facility] Respiratory rate 2020-08-23 19:27:00 18 /min Univ ersity of [place] [facility] Oxygen saturation in 2020-08-23 19:27:00 93 /min University of Arterial blood by [place] [facility] [employer] jose c Pulse oximetry Branch Body weight 2020-08-21 07:20:00 104.962 kg Universi ty of [place] [facility] BMI 2020-08-21 07:20:00 32.27 kg/m2 Universi ty [facility] [place] [facility] Systolic blood 2020-08-23 19:27:00 140 mm[Hg] Univer sity of pressure [place] [facility] Diastolic blood 2020-08-23 19:27:00 79 mm[Hg] Unive rsity of pressure [place] [facility] Heart rate 2020-08-23 19:27:00 99 /min Universi ty of [place] [facility] Body temperature 2020-08-23 19:27:00 36 [facility] Respiratory rate 2020-08-23 19:27:00 18 /min [facility] Oxygen saturation in 2020-08-23 19:27:00 93 /min University Arterial blood by [facility] Pulse oximetry [place] Body weight 2020-08-21 07:20:00 104.962 kg [facility] BMI 2020-08-21 07:20:00 32.27 kg/m2 [facility] Procedures Procedure Date / Time Performing Clinician Source Performed POCT GLUCOSE (AUTOMATED) 2020-12-17 15:42:00 [facility]EL 2020-12-17 10:45:00 Paul Bean [facility] (NA, K, CL, CO2, GLUCOSE, [facility] Branch BUN, CREATININE, CA) CBC WITH DIFF 2020-12-17 10:45:00 Paul Bean [facility] POCT GLUCOSE (AUTOMATED) 2020-12-17 02:36:00 HarrisonFavio davisonal G Uni [facility] XR TIBIA FIBULA 2 VW LEFT 2020-12-16 23:38:00 Paul Bean [facility] POCT GLUCOSE (AUTOMATED) 2020-12-16 23:20:00 Harrison, Premal G Uni [facility] POCT GLUCOSE (AUTOMATED) 2020-12-16 20:10:00 Harrison[facility] PO[facility]UCOSE (AUTOMATED) 2020-12-16 14:43:00 Harrison, Premal G Uni [facility] BASIC METABOLIC PANEL 2020-12-16 13:51:00 Paul Bean [facility] (NA, K, CL, CO2, GLUCOSE, [facility] BUN, CREATININE, CA) CBC WITH DIFF 2020-12-16 13:51:00 Paul Bean [facility] POCT GLUCOSE (AUTOMATED) 2020-12-16 04:00:00 Harrison, [facility] PO[facility] GLUCOSE (AUTOMATED) 2020-12-16 00:14:00 Harrison, Premal G Uni versity of [facility] CT CHEST PULMONARY 2020-12-15 22:29:38 Paul Bean [facility] ANGIOGRAM [facility] POCT GLUCOSE (AUTOMATED) 2020-12-15 19:26:00 Harrison, Premal G Uni versity of [facility] POCT GLUCOSE (AUTOMATED) 2020-12-15 15:13:00 Harrison, Premal G Uni versity of [facility] HB ECG ROUTINE & RHYTHM 2020-12-15 14:25:27 Cailin Romo [facility] Branch MAGNESIUM 2020-12-15 12:01:00 Paul Bean Sivakumar [facility] BASIC METABOLIC PANEL 2020-12-15 12:01:00 Paul Bean [facility] (NA, K, CL, CO2, GLUCOSE, [facility] BUN, CREATININE, CA) CBC WITH DIFF 2020-12-15 12:01:00 Paul Bean [facility] POCT GLUCOSE (AUTOMATED) 2020-12-15 03:57:00 Harrison, Premal G Uni versity of [facility] POCT GLUCOSE (AUTOMATED) 2020-12-14 23:31:00 Harrison, Premal G Uni versity of [facility] POCT GLUCOSE (AUTOMATED) 2020-12-14 19:08:00 Harrison, Premal G Uni versity of [facility] POCT GLUCOSE (AUTOMATED) 2020-12-14 15:11:00 Harrison, Premal G Uni versity of [facility] POCT GLUCOSE (AUTOMATED) 2020-12-14 02:36:00 Harrison, Premal G Uni versity of [facility] POCT GLUCOSE (AUTOMATED) 2020-12-13 23:32:00 Harrison, Premal G Uni versity of [facility] POCT GLUCOSE (AUTOMATED) 2020-12-13 18:08:00 Harrison, Premal G Uni versity of [facility] BASIC METABOLIC PANEL 2020-12-13 15:39:00 Paul Bean [facility] (NA, K, CL, CO2, GLUCOSE, [facility] BUN, CREATININE, CA) CBC WITH DIFF 2020-12-13 15:39:00 Paul Bean Sivakumar [facility] POCT GLUCOSE (AUTOMATED) 2020-12-13 14:06:00 Harrison, [facility] PO[facility] GLUCOSE (AUTOMATED) 2020-12-13 03:07:00 Harrison, [facility] PO[facility] GLUCOSE (AUTOMATED) 2020-12-12 23:52:00 Harrison, Premal [facility] POCT GLUCOSE (AUTOMATED) 2020-12-12 20:28:00 Harrison[facility] PO[facility] GLUCOSE (AUTOMATED) 2020-12-12 19:14:00 Harrison, [facility] POCT GLUCOSE (AUTOMATED) 2020-12-12 14:33:00 Harrison, [facility]al [facility] MAGNESIUM 2020-12-12 08:58:00 Darnell Beanaham Sivakumar [facility] BASIC METABOLIC PANEL 2020-12-12 08:58:00 [facility] (NA, K, CL, CO2, GLUCOSE, [facility] BUN, CREATININE, CA) CBC WITH DIFF 2020-12-12 08:58:00 Paul Bean Sivakumar [facility] US ABDOMEN LIMITED 2020-12-12 06:32:26 [facility] POCT GLUCOSE (AUTOMATED) 2020-12-12 03:40:00 Harrison, Premal G Uni [facility] POCT GLUCOSE (AUTOMATED) 2020-12-12 00:06:00 Harrison, Premal G Uni [facility] XR HIPS 3 VW LEFT 2020-12-11 20:20:00 [facility] HB ECG ROUTINE & RHYTHM 2020-12-11 20:04:06 Cailin Romo [facility] VITAMIN B6, PLASMA 2020-12-11 19:17:00 [facility] POCT GLUCOSE (AUTOMATED) 2020-12-11 19:06:00 Rene Harrison [facility] CREATINE KINASE 2020-12-11 18:22:00 Clarisse Hannon [facility] VITAMIN B12, LEVEL 2020-12-11 18:22:00 Paul Bean [facility] FOLATE 2020-12-11 18:22:00 [facility] THYROID STIMULATING 2020-12-11 18:22:00 Cailin Romo [facility] HORMONE [facility] PROCALCITONIN 2020-12-11 18:22:00 Vikas [facility] VITAMIN B1 (THIAMINE), 2020-12-11 18:22:00 Paul Bean Sivakumar [facility] WHOLE BLOOD [facility] CT HEAD WO CONTRAST 2020-12-11 14:07:35 Sweetie Stout [facility] URINALYSIS 2020-12-11 13:44:00 Singer [facility] URINE CULTURE 2020-12-11 13:44:00 Singer [facility] COVID-19 (ID NOW RAPID 2020-12-11 12:31:00 Paco Lacey [facility] TESTING) [facility] LAB ONLY COVID 2020-12-11 12:31:00 Singer Paco [facility] XR CHEST 1 VW 2020-12-11 12:07:24 Singer [facility] BLOOD CULTURE SCREEN 2020-12-11 12:02:00 Paco Lacey [facility] MAGNESIUM 2020-12-11 12:02:00 Paul Bean [facility] FERRITIN SERUM 2020-12-11 12:02:00 Darnell Beanaham Sivakumar [facility] COMP. METABOLIC PANEL 2020-12-11 12:02:00 Paco Lacey [facility] ([id number]) [facility] Branch CBC WITH DIFF 2020-12-11 12:02:00 Singer [facility] LACTIC ACID WHOLE BLOOD 2020-12-11 12:02:00 Paco Lacey [facility] BLOOD CULTURE SCREEN 2020-12-11 11:42:00 Paco Lacey [facility] EMERGENCY SERVICES 2020-12-11 06:01:00 Doctor Tabitha [facility] AGREEMENTS AND [facility] AUTHORIZATIONS HOSPITAL ADMISSION 2020-12-11 06:01:00 Doctor Tabitha [facility] Name [facility] HOME HEALTH - OTHER 2020-11-11 06:01:00 Doctor Tabitha [facility] HEALTH - OTHER 2020-10-30 06:01:00 Doctor Tabitha [facility] Name [facility] EXTERNAL PROVIDER RECORDS 2020-09-01 06:01:00 Doctor Tabitha [facility] POCT GLUCOSE (AUTOMATED) 2020-08-23 18:09:00 Kelly Washington [facility] POCT GLUCOSE (AUTOMATED) 2020-08-23 14:14:00 Kelly Washington [facility] MAGNESIUM 2020-08-23 11:18:00 Ramya, [facility] BASIC METABOLIC PANEL 2020-08-23 11:18:00 [facility] (NA, K, CL, CO2, GLUCOSE, Medica l Branch BUN, CREATININE, CA) CBC WITH DIFF 2020-08-23 11:18:00 [facility] POCT GLUCOSE (AUTOMATED) 2020-08-23 10:21:00 Kelly Washingtonity [facility] POCT GLUCOSE (AUTOMATED) 2020-08-23 05:55:00 Kelly Washingtonity [facility] POCT GLUCOSE (AUTOMATED) 2020-08-23 03:00:00 Kelly Washingtonity of [facility] POCT GLUCOSE (AUTOMATED) 2020-08-22 23:38:00 Kelly Washington versity [facility] POCT GLUCOSE (AUTOMATED) 2020-08-22 19:04:00 Kelly Washington [facility] POCT GLUCOSE (AUTOMATED) 2020-08-22 13:49:00 Kelly Washington versity [facility] MAGNESIUM 2020-08-22 10:10:00 [place] [facility] HEPATIC FUNCTION PANEL 2020-08-22 10:10:00 Jill Aguila Elias [facility] ([id number]) (ALB,T.PRO,BILI Medical Branch T,BU/BC,ALT,AST,ALK PHOS) BASIC METABOLIC PANEL 2020-08-22 10:10:00 Ramya, [facility] (NA, K, CL, CO2, GLUCOSE, Medica l Branch BUN, CREATININE, CA) LIPID PANEL ([id number])(TOTAL 2020-08-22 10:10:00 [place], [facility] TRIGLYCERIDES, HDL) CBC WITH DIFF 2020-08-22 10:10:00 [facility] POCT GLUCOSE (AUTOMATED) 2020-08-22 10:10:00 Kelly Washington [facility] POCT GLUCOSE (AUTOMATED) 2020-08-22 07:13:00 Kelly Washington [facility] POCT GLUCOSE (AUTOMATED) 2020-08-22 02:24:00 Kelly Washington [facility] POCT GLUCOSE (AUTOMATED) 2020-08-21 23:40:00 Kelly Washington [facility] POCT GLUCOSE (AUTOMATED) 2020-08-21 18:10:00 Kelly Washington [facility] POCT GLUCOSE (AUTOMATED) 2020-08-21 13:39:00 Kelly Washington [facility] ETHANOL 2020-08-21 12:35:00 Jos Quiroz [facility] ACTIVATED PARTIAL 2020-08-21 12:35:00 Padmini Kelly [facility] THRMPLAS [facility] GALV ONLY - SYPHILIS 2020-08-21 12:35:00 Padmini Kelly [facility] IGG/IGM [facility] LACTATE DEHYDROGENASE 2020-08-21 10:09:00 [place], [facility] GALV/CLC ONLY - URINE 2020-08-21 10:09:00 Jos Quiroz [facility] DRUG (IMMUNOASSAY) - 4 ER Medica l Branch PANEL URINALYSIS 2020-08-21 10:09:00 [place], [facility] URINE CULTURE 2020-08-21 10:09:00 [place], [facility] PROCALCITONIN 2020-08-21 10:09:00 Ramya, [facility] POCT GLUCOSE (AUTOMATED) 2020-08-21 09:41:00 Kelly Washington [facility] PROTHROMBIN TIME / INR 2020-08-21 08:32:00 Ramya, [facility] ACTIVATED PARTIAL 2020-08-21 08:32:00 Ramya, [facility] THRMPLAS [facility] C-REACTIVE PROTEIN 2020-08-21 08:31:00 Ramya, [facility] HEPATIC FUNCTION PANEL 2020-08-21 08:31:00 Ramya, [facility] ([id number]) (ALB,T.PRO,BILI Medical [place] T,BU/BC,ALT,AST,ALK PHOS) BASIC METABOLIC PANEL 2020-08-21 08:31:00 [place], [facility] (NA, K, CL, CO2, GLUCOSE, [facility] [place] BUN, CREATININE, CA) SEDIMENTATION RATE 2020-08-21 08:31:00 Ramya, [facility] CBC WITH DIFF 2020-08-21 08:31:00 Ramya, [facility] GLYCOSYLATED HEMOGLOBIN 2020-08-21 08:31:00 Ramya, [facility] (A1C) [facility] HIV 1/2 AG-AB WITH REFLEX 2020-08-21 08:31:00 [facility] (ID NOW RAPID 2020-08-21 08:20:00 Ramya, [facility] TESTING) Medical Branch LAB ONLY COVID 2020-08-21 08:20:00 Ramya, Haily [facility] Encounters Start End Encounter Admission Attending Care Care Encounter Source Date/Time Date/Time Type Type Clinicians Facility Department ID 2020-08-21 Inpatient Shayy [facility] [id number] Univers 01:07:00 KELLY cantu [facility] 2021-08-22 2021-08-[address] [facility] [id number] Univers 06:21:00 08:02:00 SWEETIE cantu [facility] 2021-08-22 2021-08-[address] [facility] [id number] Univers 06:21:00 08:02:00 Sweetie LOTT [id number] i ty of [place] [id number] [facility] 084 [place] 2021-08-09 2021-08-09 Outpatient ZAKI, KAWEAH [facility] [id number] [facility] 10:27:03 10:27:03 ADRIANA lopez of Medicin e 2020-12-28 2020-12-28 Telephone [facility] [id number] 00:00:00 00:00:00 Calvin H PRIMARY [id number] CARE 4.2.7.2.686 PAVILLION [id number] 2020-12-28 2020-12-28 Telephone [facility] [id number] Univers 00:00:00 00:00:00 Calvin H PRIMARY [id number] it y of CARE 4.2.7.2.686 [facility] [id number] Nh dical 220 Branch 2020-12-19 2020-12-19 Transition Tuan Peters 1.2.840.114 [id number] 00:00:00 00:00:00 of Care Ruchi Braswell [id number] [place] 4.2.7.2.686 [id number] 2020-12-19 2020-12-19 Transition Tuan Peters [id number] Univers 00:00:00 00:00:00 of Care Ruchi Braswell [id number] it y of [place] [id number] [facility] 403 Branch 2020-12-11 2020-12-17 [facility] Paco Lacey 1.2.840.1 [id number] 05:11:00 16:00:00 Encounter Rene Harrison Monique [id number] [facility] 4.2.7.2.686 [id number] [facility] 2020-12-11 2020-12-17 [facility] 1.2.840.1 [id number] [facility] 05:11:00 16:00:00 Encounter Rene Harrison Monique [id number] ity of [facility] 4.2.7.2.686 [place] [id number] [facility] 096 [place] 2020-12-11 2020-12-11 Emergency X [facility] ERT [id number] Univers 05:11:00 05:11:00 [facility] 2020-11-16 2020-11-16 Emergency X [facility] ERT [id number] Univers 09:31:00 09:31:00 [facility] 2020-11-11 2020-11-11 Orders Doctor CUI 1.2.840.114 [id number] 00:00:00 00:00:00 Only Unassigned, MONIQUE [id number] [facility] 4.2.7.2.686 [id number] 009 2020-11-11 2020-11-11 Orders Doctor CUI 1.2.840.114 [id number] Univers 00:00:00 00:00:00 Only Unassigned, MONIQUE 350.1.13.10 ity of [facility] 4.2.7.2.686 Jeff as [id number] [facility] 009 Branch 2020-11-07 2020-11-07 Telephone Wilder [facility] [id number] 00:00:00 00:00:00 Angi Lott 350.1.13.10 [employer] 4.2.7.2.686 Professio [id number] [facility]9 [facility] 2020-11-07 2020-11-07 Telephone Hdz [facility] [id number] [facility] 00:00:00 00:00:00 Sendil DiegoAshely Lott 350.1.13.10 ity of [employer] [place] Profess[place] [id number] [place] [id number] [facility] 2020-10-30 2020-10-30 Orders Doctor BASILIA 1.2.840.114 [id number] 00:00:00 00:00:00 Only Unassigned, MONIQUE 350.1.13.10 [facility] 4.2.7.2.[id number] [facility] 2020-10-30 2020-10-30 Orders Doctor BASILIA 1.2.840.114 [id number] Univers 00:00:00 00:00:00 Only Unassigned, MONIQUE 350.1.13.10 ity of [facility] 4.2.7.2.686 Jeff as [id number] [address] 2020-09-26 2020-09-26 Telephone [facility] 1.2.840.114 [id number] 00:00:00 00:00:00 [facility] [id number] CLINICS 4.2.7.2.[id number] [facility] 2020-09-26 2020-09-26 Telephone [facility] 1.2.840.114 [id number] Univers 00:00:00 00:00:00 [facility] 350.1.13.10 i ty of CLINICS [place] [id number] [address] 2020-09-01 2020-09-01 Orders Doctor BASILIA 1.2.840.114 [id number] 00:00:00 00:00:00 Only Unassigned, MONIQUE 350.1.13.10 [facility] 4.2.7.2.686 [id number] [id number] 2020-09-01 2020-09-01 Orders Doctor BASILIA 1.2.840.114 [id number] Univers 00:00:00 00:00:00 Only Unassigned, MONIQUE 350.1.13.10 ity [facility] 4.2.7.2.686 Jeff as [id number] [facility] 009 Branch 2020-08-25 2020-08-25 Transition Tuan Peters 1.2.840.114 [id number] 00:00:00 00:00:00 of Care Ruchi Garciay 350.1.13.10 [place] 4.2.7.2.686 [id number] [facility] 2020-08-25 2020-08-25 Transition Tuan Peters 1.2.840.114 [id number] Univers 00:00:00 00:00:00 of Care Ruchi Garciay 350.1.13.10 it y of [place] [id number] [address] 2020-08-21 2020-08-23 [facility] Ayleen 1.2.840.114 [id number] 01:07:00 18:35:00 Encounter Kelly Amaya 350.1.13.10 [facility] 4.2.7.2.686 [id number] [facility] 2020-08-21 2020-08-23 [facility] 1. 2.840.114 [id number] [facility] 01:07:00 18:35:00 Encounter Mukul Gallardo 350.1.13. 10 ity of [facility] 4.2.7.2.686 Jeff as [phone] [address] Results Test Description Test Time Test Comments Results Result Comments Source POCT GLUCOSE (AUTOMATED) 2020-12-17 15:43:35 Test Item Value Reference Range Interpretation Comme nts POCT GLU (test code = 0998140643) 129 mg/dL 70-110 H Lab Interpretation (test code = 89449-3) Abnormal [facility] METABOLIC PANEL (NA, K, CL, CO2, GLUCOSE, BUN, CREATININE, CA)2020-12-17 11:45:07 Test Item Value Reference Range Interpretation Comments NA (test code = 137 mmol/L 135-145 8871188894) K (test code = 3.5 mmol/L 3.5-5.0 4756548231) CL (test code = 103 mmol/L 98-108 7070846456) CO2 TOTAL (test code = 26 mmol/L 23-31 1742533987) AGAP (test code = 2-16 6526338616) BUN (test code = 11 mg/dL 7-23 8906630914) GLUCOSE (test code = 175 mg/dL 70-110 H 2401516405) CREATININE (test code = 0.62 mg/dL 0.60-1.25 0791821323) CALCIUM (test code = 9.0 mg/dL 8.6-10.6 5034620860) eGFR Calculation mL/min/1.73m2 (Non-) (test code = 8927962438) eGFR Calculation mL/min/1.73m2 () (test code = 6935357407) JAMES (test code = JAMES) Association of [...] tests). Lab Interpretation Abnormal (test code = 57029-4) [facility] WITH [id number] 11:07:27 Test Item Value Reference Range Interpretation [...] RDW-SD (test code = 45.2 fL 38.5-51.6 90712-0) RDW-CV (test code = 16.9 % 12.1-15.4 H 788-0) PLT (test code = See_Comment H [Automated 777-3) message] The sy stem which generated this result transmitted reference range : 150 - 328 10*3/ ?L. The reference r torito was not used to interpret this result as normal/abnormal . MPV (test code = 8.1 fL 9.8-13.0 L 65106-3) NRBC/100 WBC (test See_Comment [Automat ed code = 5036769241) message] The system which generated this result transmitted reference range : 0.0 - 10.0 /100 WBCs. The refer ence range was not u sed to interpret th is result as normal/abnormal . NRBC x10^3 (test code <0.01 See_Comment [Auto mated = 3862285097) message] The s ystem which generated this result transmitted reference range : 10*3/?L. The reference range was not used to interpret this result as normal/abnormal . GRAN MAT (NEUT) % 72.8 % (test code = 770-8) IMM GRAN % (test code 0.60 % = 0135395311) LYMPH % (test code = 18.4 % 736-9) MONO % (test code = 5.7 % 5905-5) EOS % (test code = 1.8 % 713-8) BASO % (test code = 0.7 % 706-2) GRAN MAT x10^3(ANC) 8.23 10*3/uL 1.99-6.95 H (test code = 4200480805) IMM GRAN x10^3 (test 0.07 10*3/uL 0.00-0.06 H code = 0702922360) LYMPH x10^3 (test code 2.08 10*3/uL 1.09-3.23 = 731-0) MONO x10^3 (test code 0.65 10*3/uL 0.36-1.02 = 742-7) EOS x10^3 (test code = 0.20 10*3/uL 0.06-0.53 711-2) BASO x10^3 (test code 0.08 10*3/uL 0.01-0.09 = 704-7) Lab Interpretation Abnormal (test code = 66939-8) [facility]2020-12-17 06:03:38 Test Item Value Reference Range Interpretation Comments POCT GLU (test code = 0264582694) 75 mg/dL 70-110 Lab Interpretation (test code = Normal 24835-6) [facility], [id number] 00:01:00 Test Item Value Reference Range Interpretation Comments VIT B6 (test code = 13.1 nmol/L 20.0-125.0 L INTERPRE TIVE 02601-8) INFORMATION: Vi tamin B6 (Pyridoxal 5-Phosphate) Pyridoxal [...] intended for cl inical purposes.Perfor med By: [employer] [place] [address] [id number] Director: Namrata Klein MD Lab Interpretation Abnormal (test code = 08273-6) [facility] TIBIA FIBULA 2 VW [id number] 23:57:09 Tricompartmental knee joint osteoarthrosis.XR TIBIA FIBULA [...] No acute fracture or dislocation.IMPRESSIONTricompartmental knee joint osteoarthrosis.[facility] GLUCOSE (AUTOMATED) 2020-12-16 23:27:00 Test Item Value Reference Range Interpretation Comments POCT GLU (test code = 7873403530) 114 mg/dL 70-110 H Lab Interpretation (test code = Abnormal 38507-7) [facility] GLUCOSE (AUTOMATED)2020-12-16 20:12:00 Test Item Value Reference Range Interpretation Comments POCT GLU (test code = 6687556372) 105 mg/dL 70-110 Lab Interpretation (test code = Normal 18783-1) [facility] GLUCOSE (AUTOMATED)2020-12-16 14:44:00 Test Item Value Reference Range Interpretation Comments POCT GLU (test code = 2987033455) 153 mg/dL 70-110 H Lab Interpretation (test code = Abnormal 91141-9) [facility] METABOLIC PANEL (NA, K, CL, CO2, GLUCOSE, BUN, CREATININE, CA)2020-12-16 14:23:00 Test Item Value Reference Range Interpretation Comments NA (test code = 138 mmol/L 135-145 5373644602) K (test code = 3.4 mmol/L 3.5-5.0 L 9205871658) CL (test code = 100 mmol/L 98-108 8383269703) CO2 TOTAL (test code = 31 mmol/L 23-31 1651742750) AGAP (test code = 2-16 3031583896) BUN (test code = 11 mg/dL 7-23 0377784435) GLUCOSE (test code = 162 mg/dL 70-110 H 8833021462) CREATININE (test code = 0.64 mg/dL 0.60-1.25 5344822122) CALCIUM (test code = 8.9 mg/dL 8.6-10.6 9208165077) eGFR Calculation mL/min/1.73m2 (Non-) (test code = 8761865877) eGFR Calculation mL/min/1.73m2 () (test code = 8344941992) JAMES (test code = JAMES) Association of [...] tests). Lab Interpretation Abnormal (test code = 08981-6) [facility] WITH [id number] 14:05:00 Test Item Value Reference Range Interpretation [...] RDW-SD (test code = 45.4 fL 38.5-51.6 46782-4) RDW-CV (test code = 17.0 % 12.1-15.4 H 788-0) PLT (test code = See_Comment H [Automated 777-3) message] The sy stem which generated this result transmitted reference range : 150 - 328 10*3/ ?L. The reference r torito was not used to interpret this result as normal/abnormal . MPV (test code = 8.0 fL 9.8-13.0 L 84788-0) NRBC/100 WBC (test See_Comment [Automat ed code = 3401234107) message] The system which generated this result transmitted reference range : 0.0 - 10.0 /100 WBCs. The refer ence range was not u sed to interpret th is result as normal/abnormal . NRBC x10^3 (test code <0.01 See_Comment [Auto mated = 2004888046) message] The s ystem which generated this result transmitted reference range : 10*3/?L. The reference range was not used to interpret this result as normal/abnormal . GRAN MAT (NEUT) % 70.0 % (test code = 770-8) IMM GRAN % (test code 0.70 % = 9772175153) LYMPH % (test code = 20.5 % 736-9) MONO % (test code = 7.1 % 5905-5) EOS % (test code = 1.0 % 713-8) BASO % (test code = 0.7 % 706-2) GRAN MAT x10^3(ANC) 9.44 10*3/uL 1.99-6.95 H (test code = 9780350039) IMM GRAN x10^3 (test 0.09 10*3/uL 0.00-0.06 H code = 8695917925) LYMPH x10^3 (test code 2.76 10*3/uL 1.09-3.23 = 731-0) MONO x10^3 (test code 0.96 10*3/uL 0.36-1.02 = 742-7) EOS x10^3 (test code = 0.13 10*3/uL 0.06-0.53 711-2) BASO x10^3 (test code 0.10 10*3/uL 0.01-0.09 H = 704-7) Lab Interpretation Abnormal (test code = 75594-7) [facility] - [facility] # [id number] 13:01:00 Test Item Value Reference Range Interpretation Comments Blood Culture-Aerobic No organisms No growth Previo us (test code = 82860-4) isolated prelim inary verified result was Culture In Progress on 12/11/2020 at 100 1 CSTPrevious preliminary verified result was No growth a t 24 hours on 12/12/2020 at 070 1 CSTPrevious preliminary verified result was No growth a t 48 hours on 12/13/2020 at 070 1 CSTPrevious preliminary verified result was No growth a t 72 hours on 12/14/2020 at 070 1 COKE INSPECTOR Blood No organisms No growth Previous Culture-Anaerobic isolated preliminar y (test code = 62938-1) verifi ed result was Culture In Progress on 12/11/2020 at 100 1 CSTPrevious preliminary verified result was No growth a t 24 hours on 12/12/2020 at 070 1 CSTPrevious preliminary verified result was No growth a t 48 hours on 12/13/2020 at 070 1 CSTPrevious preliminary verified result was No growth a t 72 hours on 12/14/2020 at 070 1 COKE INSPECTOR Lab Interpretation Normal (test code = 08195-9) [facility] # [id number] 13:01:00 Test Item Value Reference Range Interpretation Comments Blood Culture-Aerobic No organisms No growth Previo us (test code = 41701-6) isolated prelim inary verified result was Culture In Progress on 12/11/2020 at 100 1 CSTPrevious preliminary verified result was No growth a t 24 hours on 12/12/2020 at 070 1 CSTPrevious preliminary verified result was No growth a t 48 hours on 12/13/2020 at 070 1 CSTPrevious preliminary verified result was No growth a t 72 hours on 12/14/2020 at 070 1 COKE INSPECTOR Blood No organisms No growth Previous Culture-Anaerobic isolated preliminar y (test code = 37472-3) verifi ed result was Culture In Progress on 12/11/2020 at 100 1 CSTPrevious preliminary verified result was No growth a t 24 hours on 12/12/2020 at 070 1 CSTPrevious preliminary verified result was No growth a t 48 hours on 12/13/2020 at 070 1 CSTPrevious preliminary verified result was No growth a t 72 hours on 12/14/2020 at 070 1 COKE INSPECTOR Lab Interpretation Normal (test code = 28781-9) [facility] GLUCOSE (AUTOMATED)2020-12-16 04:01:00 Test Item Value Reference Range Interpretation Comments POCT GLU (test code = 0844307787) 156 mg/dL 70-110 H Lab Interpretation (test code = Abnormal 67118-4) [facility] GLUCOSE (AUTOMATED)2020-12-16 00:24:00 Test Item Value Reference Range Interpretation Comments POCT GLU (test code = 9709259354) 115 mg/dL 70-110 H Lab Interpretation (test code = Abnormal 89822-0) [facility] CHEST PULMONARY [id number] 23:34:55No pulmonary emboli. No interval change in [...] of intra and extrahepatic biliary du ctal dilatation.[facility] GLUCOSE (AUTOMATED) 2020-12-15 19:28:00 Test Item Value Reference Range Interpretation Comments POCT GLU (test code = 2402689125) 140 mg/dL 70-110 H Lab Interpretation (test code = Abnormal 07766-1) [facility]MAG[facility]UM2021-[facility]-05 15:26:00 Test Item Value Reference Range Interpretation Comments MAGNESIUM (test code = 8586997307) 2.2 mg/dL 1.7-2.4 Lab Interpretation (test code = Normal 70138-7) [facility]2020-12-15 15:15:00 Test Item Value Reference Range Interpretation Comments POCT GLU (test code = 8934974345) 181 mg/dL 70-110 H Lab Interpretation (test code = Abnormal 66373-9) [facility] (NA, K, CL, CO2, GLUCOSE, BUN, CREATININE, CA)2020-12-15 13:07:00 Test Item Value Reference Range Interpretation Comments NA (test code = 136 mmol/L 135-145 2832373878) K (test code = 3.6 mmol/L 3.5-5.0 2429270411) CL (test code = 96 mmol/L 98-108 L 5961071748) CO2 TOTAL (test code = 29 mmol/L 23-31 1586724425) AGAP (test code = 2-16 4808328466) BUN (test code = 12 mg/dL 7-23 0614477471) GLUCOSE (test code = 183 mg/dL 70-110 H 6859160631) CREATININE (test code = 0.70 mg/dL 0.60-1.25 3883831242) CALCIUM (test code = 9.2 mg/dL 8.6-10.6 9619641629) eGFR Calculation mL/min/1.73m2 (Non-) (test code = 6508676622) eGFR Calculation mL/min/1.73m2 () (test code = 3734912346) JAMES (test code = JAMES) Association of [...] tests). Lab Interpretation Abnormal (test code = 09366-2) [facility] WITH [id number] 12:32:00 Test Item Value Reference Range Interpretation Comments WBC (test code = See_Comment H [Automated 8490-2) message] The system which generated this result transmit ronan reference range : 4.20 - 10.70 10*3/?L. The reference range was not used to interpret this result as normal/abnormal . RBC (test code = See_Comment H [Automated 339-8) message] The system which generated this result [...] RDW-SD (test code = 44.4 fL 38.5-51.6 05537-3) RDW-CV (test code = 17.7 % 12.1-15.4 H 788-0) PLT (test code = See_Comment H [Automated 777-3) message] The system which generated this result transmit roann reference range : 150 - 328 10*3/ ?L. The reference range was not u sed to interpret th is result as normal/abnormal . MPV (test code = 8.1 fL 9.8-13.0 L 00675-8) NRBC/100 WBC (test See_Comment [Automat ed code = 8819679088) message] The system which generated this result transmit ronan reference range : 0.0 - 10.0 /100 WBCs. The reference range was not used to interpret this result as normal/abnormal . NRBC x10^3 (test code <0.01 See_Comment [Auto mated = 8205833670) message] The system which generated this result transmit ronan reference range : 10*3/?L. The reference range was not used to interpret this result as normal/abnormal . GRAN MAT (NEUT) % 74.5 % (test code = 770-8) IMM GRAN % (test code 0.70 % = 8750666853) LYMPH % (test code = 17.4 % 736-9) MONO % (test code = 6.8 % 5905-5) EOS % (test code = 0.2 % 713-8) BASO % (test code = 0.4 % 706-2) GRAN MAT x10^3(ANC) 11.99 10*3/uL 1.99-6.95 H (test code = 9377703191) IMM GRAN x10^3 (test 0.11 10*3/uL 0.00-0.06 H code = 5206807022) LYMPH x10^3 (test code 2.80 10*3/uL 1.09-3.23 = 731-0) MONO x10^3 (test code 1.10 10*3/uL 0.36-1.02 H = 742-7) EOS x10^3 (test code = 0.03 10*3/uL 0.06-0.53 L 711-2) BASO x10^3 (test code 0.06 10*3/uL 0.01-0.09 = 704-7) Lab Interpretation Abnormal (test code = 78100-6) [facility] GLUCOSE (AUTOMATED)2020-12-15 04:16:00 Test Item Value Reference Range Interpretation Comments POCT GLU (test code = 7939202703) 200 mg/dL 70-110 H Lab Interpretation (test code = Abnormal 36198-2) [facility] CenterVITAMIN B1 (THIAMINE), WHOLE [id number] 00:30:00 Test Item Value Reference Range Interpretation Comments Vitamin B1, Whole 136 nmol/L 70-180 INTERPRETI VE INFORMATION: Blood (test code = Vitamin B 1, Whole Blood 27046-5) This assay júnior ures the concentration o [...] performance characteristics determined by A [facility]. I t has not been cleared or approved by the US Food and Drug Administration. This test was performed i n a CLIA certified labor atory and is intended for clinical purposes.Perfor med By: [facility] Laboratori [address] [place] [id number] aboratory Director: Namrata Klein MD [facility] GLUCOSE (AUTOMATED)2020-12-14 23:35:00 Test Item Value Reference Range Interpretation Comments POCT GLU (test code = 1316644282) 151 mg/dL 70-110 H Lab Interpretation (test code = Abnormal 23515-0) [facility] GLUCOSE (AUTOMATED)2020-12-14 19:19:00 Test Item Value Reference Range Interpretation Comments POCT GLU (test code = 1912142962) 193 mg/dL 70-110 H Lab Interpretation (test code = Abnormal 88824-7) [facility] GLUCOSE (AUTOMATED)2020-12-14 15:22:00 Test Item Value Reference Range Interpretation Comments POCT GLU (test code = 2015201653) 221 mg/dL 70-110 H Lab Interpretation (test code = Abnormal 68751-4) [facility] GLUCOSE (AUTOMATED)2020-12-14 02:37:00 Test Item Value Reference Range Interpretation Comments POCT GLU (test code = 9568811136) 210 mg/dL 70-110 H Lab Interpretation (test code = Abnormal 99874-7) [facility] GLUCOSE (AUTOMATED)2020-12-13 23:33:00 Test Item Value Reference Range Interpretation Comments POCT GLU (test code = 8385098068) 182 mg/dL 70-110 H Lab Interpretation (test code = Abnormal 13303-9) [facility] GLUCOSE (AUTOMATED)2020-12-13 18:09:00 Test Item Value Reference Range Interpretation Comments POCT GLU (test code = 7235034703) 150 mg/dL 70-110 H Lab Interpretation (test code = Abnormal 21578-3) [facility] METABOLIC PANEL (NA, K, CL, CO2, GLUCOSE, BUN, CREATININE, CA)2020-12-13 16:27:00 Test Item Value Reference Range Interpretation Comments NA (test code = 136 mmol/L 135-145 1261156022) K (test code = 3.7 mmol/L 3.5-5.0 2575889442) CL (test code = 96 mmol/L 98-108 L 5172226933) CO2 TOTAL (test code = 29 mmol/L 23-31 3414560448) AGAP (test code = 2-16 8885678673) BUN (test code = 6 mg/dL 7-23 L 1650967969) GLUCOSE (test code = 212 mg/dL 70-110 H 1007694507) CREATININE (test code = 0.61 mg/dL 0.60-1.25 3439758575) CALCIUM (test code = 9.5 mg/dL 8.6-10.6 0290826929) eGFR Calculation mL/min/1.73m2 (Non-) (test code = 3223105562) eGFR Calculation mL/min/1.73m2 () (test code = 9815369675) JAMES (test code = JAMES) Association of [...] tests). Lab Interpretation Abnormal (test code = 20391-3) [facility] WITH [id number] 16:10:00 Test Item Value Reference Range Interpretation Comments WBC (test code = See_Comment H [Automated 5890-2) message] The sy stem which generated this result transmitted reference range : 4.20 - 10.70 10*3/?L. The reference range was not used to interpret this result as normal/abnormal . RBC (test code = See_Comment H [Automated 969-8) message] The sy stem which generated this [...] RDW-SD (test code = 43.3 fL 38.5-51.6 60447-3) RDW-CV (test code = 16.2 % 12.1-15.4 H 788-0) PLT (test code = See_Comment H [Automated 777-3) message] The sy stem which generated this result transmitted reference range : 150 - 328 10*3/ ?L. The reference r torito was not used to interpret this result as normal/abnormal . MPV (test code = 8.2 fL 9.8-13.0 L 09627-1) NRBC/100 WBC (test See_Comment [Automat ed code = 7942314395) message] The system which generated this result transmitted reference range : 0.0 - 10.0 /100 WBCs. The refer ence range was not u sed to interpret th is result as normal/abnormal . NRBC x10^3 (test code <0.01 See_Comment [Auto mated = 2484857948) message] The s ystem which generated this result transmitted reference range : 10*3/?L. The reference range was not used to interpret this result as normal/abnormal . GRAN MAT (NEUT) % 86.2 % (test code = 770-8) IMM GRAN % (test code 0.70 % = 8029706531) LYMPH % (test code = 10.2 % 736-9) MONO % (test code = 2.5 % 5905-5) EOS % (test code = 0.1 % 713-8) BASO % (test code = 0.3 % 706-2) GRAN MAT x10^3(ANC) 9.61 10*3/uL 1.99-6.95 H (test code = 1273169635) IMM GRAN x10^3 (test 0.08 10*3/uL 0.00-0.06 H code = 9524777922) LYMPH x10^3 (test code 1.14 10*3/uL 1.09-3.23 = 731-0) MONO x10^3 (test code 0.28 10*3/uL 0.36-1.02 L = 742-7) EOS x10^3 (test code = <0.03 0.06-0.53 L 711-2) BASO x10^3 (test code 0.03 10*3/uL 0.01-0.09 = 704-7) Lab Interpretation Abnormal (test code = 35211-3) [facility]2020-12-13 14:16:00 Test Item Value Reference Range Interpretation Comments POCT GLU (test code = 3478478108) 236 mg/dL 70-110 H Lab Interpretation (test code = Abnormal 83619-7) [facility] CenterLAB ONLY COVID [id number] 04:58:00COVID DMT InterpretationInterpretation/Recommendations: Molecular NAAT Tests for [...] COVID-19 testing the patient has had at [facility], including molecular NAAT testing (more commonly known as PCR testing and Rapid ID Now testing) and antibody testing. It does not take into account any testing that a patient has had outside of the [facility] medical record. [facility] LABORATORY SERVICESCOVID Resu spnAYBW-QgA-2 Rapid ID NOW (no units) ? ? Date ? Value ? 12/11/2020 ? Not Detected ? ? ? 11/16/2020 ? Not Detected ? ? ? 08/21/2020 ?Not Detected ? [facility] 2020-12-13 03:11:00 Test Item Value Reference Range Interpretation Comments POCT GLU (test code = 4732981286) 171 mg/dL 70-110 H Lab Interpretation (test code = Abnormal 91621-3) [facility] GLUCOSE (AUTOMATED)2020-12-13 00:00:00 Test Item Value Reference Range Interpretation Comments POCT GLU (test code = 4944005042) 118 mg/dL 70-110 H Lab Interpretation (test code = Abnormal 45817-7) [facility] GLUCOSE (AUTOMATED)2020-12-12 20:29:00 Test Item Value Reference Range Interpretation Comments POCT GLU (test code = 8814426805) 173 mg/dL 70-110 H Lab Interpretation (test code = Abnormal 44567-4) [facility] CenterUS ABDOMEN [id number] 19:56:17 1. ?Hepatic steatosis. However, limited evaluation [...] main portal veinwasevaluated with color Doppler imaging. Field Installation Technician images were obtainedfor the record. COMPARISON: Ultrasound [...] normal where visualized. SPLEEN:No images were obtained. [facility], Radiant Results Inft User - 12/12/2020 1:57 PM CSTEXAM: US ABDOMEN LIMITEDHISTORY: 70 years-old male with RUQ ultrasound to assess for common bileduct dilation .TECHNIQUE: Limited abdominal ultrasound focused on the liver, biliarysystem, pancreas, and spleen was performed. The main portal vein wasevaluated with color Doppler imaging. Field Installation Technician images were obtainedfor the record.COMPARISON: Ultrasound abdomen [...] this study and agree with the abovereport. [facility]2020-12-12 19:24:00 Test Item Value Reference Range Interpretation Comments POCT GLU (test code = 1028554710) 230 mg/dL 70-110 H Lab Interpretation (test code = Abnormal 96263-1) [facility] CenterXR CHEST 1 [id number] 15:16:46 Low lung volumes with mild perihilar [...] have reviewed thisstudy and agree with theabove report.[facility]2020-12-12 14:34:00 Test Item Value Reference Range Interpretation Comments POCT GLU (test code = 6818126732) 225 mg/dL 70-110 H Lab Interpretation (test code = Abnormal 72365-1) [facility] CenterURINE [id number] 13:28:00 Test Item Value Reference Range Interpretation Comments URINE CULTURE (test < 10,000 CFU/mL mixed code = 630-4) aerobic organisms - suggests endogenous microbial contamination [facility] CenterBasic Metabolic Panel (NA, K, CL, CO2, GLUCOSE, BUN, CREATININE, CA)2020-12-12 10:05:00 Test Item Value Reference Range Interpretation Comments NA (test code = 136 mmol/L 135-145 1635235324) K (test code = 3.5 mmol/L 3.5-5.0 4690004679) CL (test code = 100 mmol/L 98-108 2583757482) CO2 TOTAL (test code = 31 mmol/L 23-31 3638399983) AGAP (test code = 2-16 8602862320) BUN (test code = 7 mg/dL 7-23 9534421315) GLUCOSE (test code = 259 mg/dL 70-110 H 6511844646) CREATININE (test code = 0.63 mg/dL 0.60-1.25 5078122100) CALCIUM (test code = 8.5 mg/dL 8.6-10.6 L 6611039190) eGFR Calculation mL/min/1.73m2 (Non-) (test code = 9020118234) eGFR Calculation mL/min/1.73m2 () (test code = 2523929398) JAMES (test code = JAMES) Association of [...] tests). Lab Interpretation Abnormal (test code = 71242-3) [facility] CenterMagnesium [id number] 10:05:00 Test Item Value Reference Range Interpretation Comments MAGNESIUM (test code = 3006652869) 1.9 mg/dL 1.7-2.4 Lab Interpretation (test code = Normal 13136-5) [facility] with [id number] 09:48:00 Test Item Value Reference Range Interpretation Comments WBC (test code = See_Comment [Automated 8155-2) message] The sy stem which generated this result transmitted reference range : 4.20 - 10.70 10*3/?L. The reference range was not used to interpret this result as normal/abnormal . RBC (test code = See_Comment [Automated 181-8) message] The sy stem which generated this [...] RDW-SD (test code = 46.0 fL 38.5-51.6 28229-3) RDW-CV (test code = 16.1 % 12.1-15.4 H 788-0) PLT (test code = See_Comment H [Automated 777-3) message] The sy stem which generated this result transmitted reference range : 150 - 328 10*3/ ?L. The reference r torito was not used to interpret this result as normal/abnormal . MPV (test code = 8.6 fL 9.8-13.0 L 02108-2) NRBC/100 WBC (test See_Comment [Automat ed code = 1624302790) message] The system which generated this result transmitted reference range : 0.0 - 10.0 /100 WBCs. The refer ence range was not u sed to interpret th is result as normal/abnormal . NRBC x10^3 (test code <0.01 See_Comment [Auto mated = 8494062707) message] The s ystem which generated this result transmitted reference range : 10*3/?L. The reference range was not used to interpret this result as normal/abnormal . GRAN MAT (NEUT) % 70.2 % (test code = 770-8) IMM GRAN % (test code 0.30 % = 3490695250) LYMPH % (test code = 18.8 % 736-9) MONO % (test code = 5.0 % 5905-5) EOS % (test code = 5.2 % 713-8) BASO % (test code = 0.5 % 706-2) GRAN MAT x10^3(ANC) 6.05 10*3/uL 1.99-6.95 (test code = 6083756596) IMM GRAN x10^3 (test 0.03 10*3/uL 0.00-0.06 code = 3365537088) LYMPH x10^3 (test code 1.62 10*3/uL 1.09-3.23 = 731-0) MONO x10^3 (test code 0.43 10*3/uL 0.36-1.02 = 742-7) EOS x10^3 (test code = 0.45 10*3/uL 0.06-0.53 711-2) BASO x10^3 (test code 0.04 10*3/uL 0.01-0.09 = 704-7) Lab Interpretation Abnormal (test code = 20162-3) [facility] GLUCOSE (AUTOMATED)2020-12-12 03:42:00 Test Item Value Reference Range Interpretation Comments POCT GLU (test code = 196 mg/dL 70-110 H Notifi ed Provider [id number]) Lab Interpretation (test Abnormal code = 07552-8) [facility] CenterFOLATE2021-03-02 02:24:00 Test Item Value Reference Range Interpretation Comments FOLATE SER (test code = 8430940433) 5.8 ng/mL 3.0-20.0 Lab Interpretation (test code = Normal 13809-4) [facility] CenterVITAMIN B12, [id number] 00:55:00 Test Item Value Reference Range Interpretation Comments VIT B12 (test code = 844 pg/mL 240-930 6302711538) JAMES (test code = JAMES) Biotin has been reported to cause a positive bias, interpret results relative to patient's use of biotin. Lab Interpretation (test Normal code = 22346-6) [facility] GLUCOSE (AUTOMATED)2020-12-12 00:14:00 Test Item Value Reference Range Interpretation Comments POCT GLU (test code = 7271882509) 164 mg/dL 70-110 H Lab Interpretation (test code = Abnormal 23957-4) [facility] CenterCREATINE [id number] 23:42:00 Test Item Value Reference Range Interpretation Comments CK (test code = 0501610050) <20 33-194 L Lab Interpretation (test code = Abnormal 64749-8) [facility] CenterTHYROID STIMULATING [id number] 23:17:00 Test Item Value Reference Range Interpretation Comments TSH (test code = See_Comment Biotin has been 7355840768) reported to cau se a negative bias, interpret resul ts relative to pat ient's use of biotin. [Automated mess age] The system whic h generated this result transmitted ref erence range: 0.45 - 4 .70 mIU/L. The refe rence range was not u sed to interpret this result as normal/abnor mal. Lab Interpretation (test Normal code = 24104-3) [facility] CenterXR HIPS 3 VW [id number] 21:41:53No appreciable fracture lines. RL: 6200 ICAL [...] No osseous erosions.IMPRESSIONNo appreciable fracture lines.RL: 6200 [facility] SystemPROCALCITONIN2021-03-01 20:00:00 Test Item Value Reference Range Interpretation Comments Procalcitonin (test 0.13 ng/mL <0.07 H code = 1067552512) JAMES (test code = JAMES) INTERPRETATION OF [...] For further information please refer to:[email or web address] Lab Interpretation Abnormal (test code = 23435-2) [facility]PO[facility])2020-12-11 19:07:00 Test Item Value Reference Range Interpretation Comments POCT GLU (test code = 2651819366) 274 mg/dL 70-110 H Lab Interpretation (test code = Abnormal 29177-0) [facility] CenterMAGNESIUM2021-03-01 18:31:00 Test Item Value Reference Range Interpretation Comments MAGNESIUM (test code = 9541947129) 1.9 mg/dL 1.7-2.4 Lab Interpretation (test code = Normal 26022-1) [facility] CenterFERRITIN [id number] 18:31:00 Test Item Value Reference Range Interpretation Comments FERRITIN (test code = 178.0 ng/mL 18.0-464.0 5974129436) JAMES (test code = JAMES) Biotin has been reported to cause a negative bias, interpret results relative to patient's use of biotin. Lab Interpretation (test Normal code = 51219-1) [facility]CT [facility] WO [id number] 14:36:47 No acute intracranial abnormality. Dilated ventricles [...] reviewed this study and agree with the abovereport.[facility] CenterURINALYSIS2021-03-01 14:28:00 Test Item Value Reference Range Interpretation Comments APPEARANCE (test code = Clear Clear 8615547186) COLOR (test code = Yellow Yellow 0214267483) PH (test code = 4.8-8.0 7087662171) SP GRAVITY (test code = 1.003-1.030 3977260819) GLU U QUAL (test code = 500 mg/dL Normal A 1708161908) BLOOD (test code = Negative Negative 8234145215) KETONES (test code = 5 mg/dL Negative A 2177715069) PROTEIN (test code = Negative Negative 2887-8) UROBILIN (test code = Normal Normal 0206511281) BILIRUBIN (test code = Negative Negative 8630502261) NITRITE (test code = Negative Negative 8612405068) LEUK RYAN (test code = Negative Negative 0334649769) RBC/HPF (test code = See_Comment [Autom ated message] 7324665800) The system Leadspace generated this result transmit ronan reference range : 0 - 3 HPF. The refe rence range was not u sed to interpret th is result as normal/abnormal . WBC/HPF (test code = See_Comment [Autom ated message] 0887389740) The system Leadspace generated this result transmit ronan reference range : 0 - 5 HPF. The refe rence range was not u sed to interpret th is result as normal/abnormal . BACTERIA (test code = Negative Negative 7548675947) MUCOUS (test code = Slight Negative LPF A 0728435038) SQ EPITH (test code = HPF 1136803916) Lab Interpretation (test Abnormal code = 23075-7) [facility] CenterCOVID-[facility] (ID NOW RAPID TESTING)2020-12-11 13:10:00 Test Item Value Reference Range Interpretation Comments SARS-CoV-2 Rapid ID NOW Not Detected Not Detected (test code = 13611-0) JAMES (test code = JAMES) ID NOW COVID-19 Assay is an isothermal nucleic acid amplification test intended for the qualitative detection of nucleic acid from SARS-CoV-2 viral RNA in nasopharyngeal ([employer]) specimens. It is used under Emergency Use [...] indicated. Lab Interpretation Normal (test code = 19038-8) [facility] CenterCOMP. METABOLIC PANEL (39277)2020-12-11 12:29:00 Test Item Value Reference Range Interpretation Comments NA (test code = 136 mmol/L 135-145 5556935577) K (test code = 3.5 mmol/L 3.5-5.0 9213485423) CL (test code = 95 mmol/L 98-108 L 6332221242) CO2 TOTAL (test code = 35 mmol/L 23-31 H 2416305084) AGAP (test code = 2-16 8897659970) BUN (test code = 9 mg/dL 7-23 6464870200) GLUCOSE (test code = 329 mg/dL 70-110 H 3688988502) CREATININE (test code = 0.72 mg/dL 0.60-1.25 7036268988) TOTAL BILI (test code = 0.6 mg/dL 0.1-1.9 9904608078) CALCIUM (test code = 9.0 mg/dL 8.6-10.6 1597302939) T PROTEIN (test code = 6.8 g/dL 6.3-8.2 8192783474) ALBUMIN (test code = 3.8 g/dL 3.5-5.0 5387156627) ALK PHOS (test code = 288 U/L 34-122 H 7122737070) ALTv (test code = 46 U/L 5-50 1741-6) AST(SGOT) (test code = 38 U/L 13-40 7114350409) eGFR Calculation mL/min/1.73m2 (Non-) (test code = 2657167356) eGFR Calculation mL/min/1.73m2 () (test code = 6177565975) JAMES (test code = JAMES) Association of [...] tests). Lab Interpretation Abnormal (test code = 65241-6) [facility] CenterLactic Acid Whole [id number] 12:23:00 Test Item Value Reference Range Interpretation Comments LACTIC ACID (test code = 2.09 mmol/L 0.50-2.20 3488281929) Lab Interpretation (test code = Normal 06536-1) [facility] CenterCB WITH [id number] 12:17:00 Test Item Value Reference Range Interpretation [...] RDW-SD (test code = 44.9 fL 38.5-51.6 65714-4) RDW-CV (test code = 15.9 % 12.1-15.4 H 788-0) PLT (test code = See_Comment H [Automated 777-3) message] The sy stem which generated this result transmitted reference range : 150 - 328 10*3/ ?L. The reference r torito was not used to interpret this result as normal/abnormal . MPV (test code = 8.3 fL 9.8-13.0 L 88629-7) NRBC/100 WBC (test See_Comment [Automat ed code = 3574189724) message] The system which generated this result transmitted reference range : 0.0 - 10.0 /100 WBCs. The refer ence range was not u sed to interpret th is result as normal/abnormal . NRBC x10^3 (test code <0.01 See_Comment [Auto mated = 1477998598) message] The s ystem which generated this result transmitted reference range : 10*3/?L. The reference range was not used to interpret this result as normal/abnormal . GRAN MAT (NEUT) % 77.9 % (test code = 770-8) IMM GRAN % (test code 0.50 % = 5671219801) LYMPH % (test code = 12.2 % 736-9) MONO % (test code = 5.2 % 5905-5) EOS % (test code = 3.7 % 713-8) BASO % (test code = 0.5 % 706-2) GRAN MAT x10^3(ANC) 9.57 10*3/uL 1.99-6.95 H (test code = 0107843725) IMM GRAN x10^3 (test 0.06 10*3/uL 0.00-0.06 code = 1802344716) LYMPH x10^3 (test code 1.50 10*3/uL 1.09-3.23 = 731-0) MONO x10^3 (test code 0.64 10*3/uL 0.36-1.02 = 742-7) EOS x10^3 (test code = 0.46 10*3/uL 0.06-0.53 711-2) BASO x10^3 (test code 0.06 10*3/uL 0.01-0.09 = 704-7) Lab Interpretation Abnormal (test code = 81063-0) [facility] CenterLAB ONLY COVID [id number] 18:43:00COVID DMT InterpretationInterpretation/Recommendations: Molecular NAAT Test Results [...] a nasopharyngeal sample, there is approximately a [id number]-[id number] chance that the patient was infected and [...] based upon aggregate data pooled from the [facility] medical record including both current and prior COVID-19 related testing results for the following tests offered at our institution:A. Tests for the Identification of SARS-CoV-2 RNA:SARS-CoV-2 PCR assays including [employer] Aptima, Braidwood Fusion, Barrett RealTime, and MindSumo Xpert Xpress. SARS-CoV-2 Rapid ID NOW by the ID NOW assay. ? B. Tests for the Identification of SARS-CoV-2 Antibodies: Chemiluminescent immunoassays including Access SARS-CoV-2 IgM (DXI 600), FMS HauppaugeS Yhkg-EGIM-YgH-2 IgG (Vitros 5600 and Vitros 3600), and Barrett SARS-CoV-2 IgG (PUBLIC RELATIONS STUDIES DIRECTOR I System). These interpretation comments assume that only the above testing was utilized and that the approved acceptable specimen type(s) were used for a given test. These interpretations are autopopulated into [employer] based on computerized algorithms matching an interpretation code number to the patient's set of test results. While a clinical pathologist evaluates the combinations for clinical accuracy, clinical correlation is recommended as it may not take into account very remote prior testing. Furthermore, it does not consider testing a patient may have had outside of the [facility] system. Additionally, it should be noted that the computerized algorithm treats the results for PCR testing and Rapid ID NOW testing (also PCR) synonymously, and thus, refers to both testing methodologies as PCR tests. Given that the sensitivity of [facility]'s Rapid ID NOW testingplatform is analogous [...] panel may be beneficial in this setting. [facility] LABORATORY SERVICESCOVID VxexfxhQYEL-ElH-0 Rapid ID NOW (no units) ? ? Date ? Value ? 08/21/2020 ? Not Detected ? [facility] SERVICESUn[facility]2020-08-23 18:25:00 Test Item Value Reference Range Interpretation Comments POCT GLU (test code = 6164771959) 297 mg/dL 70-110 H Lab Interpretation (test code = Abnormal 24303-3) [facility] GLUCOSE (AUTOMATED)2020-08-23 14:25:00 Test Item Value Reference Range Interpretation Comments POCT GLU (test code = 7674090562) 181 mg/dL 70-110 H Lab Interpretation (test code = Abnormal 33738-4) [facility] CenterBasi Metabolic Panel (NA, K, CL, CO2, GLUCOSE, BUN, CREATININE, CA)2020-08-23 11:45:00 Test Item Value Reference Range Interpretation Comments NA (test code = 132 mmol/L 135-145 L 4663323315) K (test code = 4.0 mmol/L 3.5-5 0824805176) CL (test code = 96 mmol/L 98-108 L 0333877667) CO2 TOTAL (test code = 33 mmol/L 23-31 H 5807970123) AGAP (test code = 2-16 1272536761) BUN (test code = 9 mg/dL 7-23 7053432999) GLUCOSE (test code = 176 mg/dL 70-110 H 8189628044) CREATININE (test code = 0.66 mg/dL 0.6-1.25 0543339448) CALCIUM (test code = 8.5 mg/dL 8.6-10.6 L 8846401784) eGFR Calculation mL/min/1.73m2 (Non-) (test code = 9174307978) eGFR Calculation mL/min/1.73m2 () (test code = 6783920809) JAMES (test code = JAMES) Association of [...] tests). Lab Interpretation Abnormal (test code = 77600-3) [facility] CenterMagnesium [id number] 11:45:00 Test Item Value Reference Range Interpretation Comments MAGNESIUM (test code = 1462053164) 2.0 mg/dL 1.7-2.4 Lab Interpretation (test code = Normal 80607-7) [facility] CenterCB with [id number] 11:38:00 Test Item Value Reference Range Interpretation [...] RDW-SD (test code = 41.8 fL 38.5-51.6 62977-1) RDW-CV (test code = 14.3 % 12.1-15.4 788-0) PLT (test code = See_Comment H [Automated 777-3) message] The sy stem which generated this result transmitted reference range : 150 - 328 10*3/ ?L. The reference r torito was not used to interpret this result as normal/abnormal . MPV (test code = 8.0 fL 9.8-13 L 98581-0) NRBC/100 WBC (test See_Comment [Automat ed code = 8572868675) message] The system which generated this result transmitted reference range : 0.0 - 10.0 /100 WBCs. The refer ence range was not u sed to interpret th is result as normal/abnormal . NRBC x10^3 (test code <0.01 See_Comment [Auto mated = 1907637526) message] The s ystem which generated this result transmitted reference range : 10*3/?L. The reference range was not used to interpret this result as normal/abnormal . GRAN MAT (NEUT) % 61.5 % (test code = 770-8) IMM GRAN % (test code 2.00 % = 0492888342) LYMPH % (test code = 25.5 % 736-9) MONO % (test code = 6.3 % 5905-5) EOS % (test code = 3.7 % 713-8) BASO % (test code = 1.0 % 706-2) GRAN MAT x10^3(ANC) 5.29 10*3/uL 1.99-6.95 (test code = 5885536206) IMM GRAN x10^3 (test 0.17 10*3/uL 0-0.06 H code = 7140963186) LYMPH x10^3 (test code 2.19 10*3/uL 1.09-3.23 = 731-0) MONO x10^3 (test code 0.54 10*3/uL 0.36-1.02 = 742-7) EOS x10^3 (test code = 0.32 10*3/uL 0.06-0.53 711-2) BASO x10^3 (test code 0.09 10*3/uL 0.01-0.09 = 704-7) Lab Interpretation Abnormal (test code = 43303-9) [facility] GLUCOSE (AUTOMATED)2020-08-23 10:22:00 Test Item Value Reference Range Interpretation Comments POCT GLU (test code = 1225038075) 164 mg/dL 70-110 H Lab Interpretation (test code = Abnormal 15215-8) [facility] GLUCOSE (AUTOMATED)2020-08-23 05:56:00 Test Item Value Reference Range Interpretation Comments POCT GLU (test code = 8649771237) 242 mg/dL 70-110 H Lab Interpretation (test code = Abnormal 71343-1) [facility] GLUCOSE (AUTOMATED)2020-08-23 03:02:00 Test Item Value Reference Range Interpretation Comments POCT GLU (test code = 1815643326) 210 mg/dL 70-110 H Lab Interpretation (test code = Abnormal 05652-0) [facility] GLUCOSE (AUTOMATED)2020-08-22 23:40:00 Test Item Value Reference Range Interpretation Comments POCT GLU (test code = 2940452202) 267 mg/dL 70-110 H Lab Interpretation (test code = Abnormal 48709-8) [facility] GLUCOSE (AUTOMATED)2020-08-22 19:08:00 Test Item Value Reference Range Interpretation Comments POCT GLU (test code = 3570517517) 191 mg/dL 70-110 H Lab Interpretation (test code = Abnormal 10240-3) [facility] GLUCOSE (AUTOMATED)2020-08-22 13:50:00 Test Item Value Reference Range Interpretation Comments POCT GLU (test code = 0586668851) 174 mg/dL 70-110 H Lab Interpretation (test code = Abnormal 40721-4) [facility] CenterURINE [id number] 12:59:00 Test Item Value Reference Range Interpretation Comments URINE CULTURE (test No aerobic growth (< code = 630-4) 1000 CFU/mL) [facility] with Sowmhsbjkqlv1145-97-78 11:28:00 Test Item Value Reference Range Interpretation [...] RDW-SD (test code = 42.5 fL 38.5-51.6 51935-1) RDW-CV (test code = 14.5 % 12.1-15.4 788-0) PLT (test code = See_Comment H [Automated 777-3) message] The sy stem which generated this result transmitted reference range : 150 - 328 10*3/ ?L. The reference r torito was not used to interpret this result as normal/abnormal . MPV (test code = 8.0 fL 9.8-13 L 80853-8) NRBC/100 WBC (test See_Comment [Automat ed code = 0718128752) message] The system which generated this result transmitted reference range : 0.0 - 10.0 /100 WBCs. The refer ence range was not u sed to interpret th is result as normal/abnormal . NRBC x10^3 (test code <0.01 See_Comment [Auto mated = 1571031234) message] The s ystem which generated this result transmitted reference range : 10*3/?L. The reference range was not used to interpret this result as normal/abnormal . GRAN MAT (NEUT) % 69.1 % (test code = 770-8) IMM GRAN % (test code 2.20 % = 6935377761) LYMPH % (test code = 20.9 % 736-9) MONO % (test code = 5.8 % 5905-5) EOS % (test code = 1.0 % 713-8) BASO % (test code = 1.0 % 706-2) GRAN MAT x10^3(ANC) 6.51 10*3/uL 1.99-6.95 (test code = 5169242900) IMM GRAN x10^3 (test 0.21 10*3/uL 0-0.06 H code = 4994946067) LYMPH x10^3 (test code 1.97 10*3/uL 1.09-3.23 = 731-0) MONO x10^3 (test code 0.55 10*3/uL 0.36-1.02 = 742-7) EOS x10^3 (test code = 0.09 10*3/uL 0.06-0.53 711-2) BASO x10^3 (test code 0.09 10*3/uL 0.01-0.09 = 704-7) BASO STIPPLING (test Present A code = 703-9) BANDS (test code = Increased A 1602697937) TOXIC CHANGES (test Present A code = 803-7) Lab Interpretation Abnormal (test code = 35661-7) [facility] Metabolic Panel (NA, K, CL, CO2, GLUCOSE, BUN, CREATININE, CA)2020-08-22 11:12:00 Test Item Value Reference Range Interpretation Comments NA (test code = 135 mmol/L 135-145 4195342663) K (test code = 3.6 mmol/L 3.5-5 8954276606) CL (test code = 99 mmol/L 98-108 1442156460) CO2 TOTAL (test code = 31 mmol/L 23-31 2392561000) AGAP (test code = 2-16 3206040810) BUN (test code = 9 mg/dL 7-23 3330106613) GLUCOSE (test code = 198 mg/dL 70-110 H 9857243045) CREATININE (test code = 0.72 mg/dL 0.6-1.25 1435135166) CALCIUM (test code = 8.3 mg/dL 8.6-10.6 L 5702458446) eGFR Calculation mL/min/1.73m2 (Non-) (test code = 8556906373) eGFR Calculation mL/min/1.73m2 () (test code = 7706923572) JAMES (test code = JAMES) Association of [...] tests). Lab Interpretation Abnormal (test code = 93684-4) [facility] CenterMagnesium [id number] 11:12:00 Test Item Value Reference Range Interpretation Comments MAGNESIUM (test code = 2817058527) 2.0 mg/dL 1.7-2.4 Lab Interpretation (test code = Normal 82619-5) [facility] CenterLipid Panel (Total Cholesterol, Triglycerides, HDL) - [id number] 11:12:00 Test Item Value Reference Range Interpretation Comments CHOL (test code = 155 mg/dL 120-200 3583193548) HDL (test code = 42 mg/dL >40 3838786869) HDLC RATIO (test code = See_Comment [Au tomated message] 4600938016) The system Leadspace generated this result transmit ronan reference range : <=5.0. The refe rence range was not u sed to interpret th is result as normal/abnormal . TRIG (test code = 186 mg/dL 30-170 H 4650812294) LDL CHOL (test code = 76 mg/dL See_Comment [Auto mated message] 17768-3) The system [employer]space generated this result transmit ronan reference range : <=160. The refe rence range was not u sed to interpret th is result as normal/abnormal . VLDL (test code = 37 mg/dL 5-60 9990172970) Lab Interpretation (test Abnormal code = 04187-6) [facility] CenterHEPATIC FUNCTION PANEL (02500) (ALB,T.PRO,BILI T,BU/BC,ALT,AST,ALK PHOS)2020-08-22 11:12:00 Test Item Value Reference Range Interpretation Comments TOTAL BILI (test code = 2608481710) 0.6 mg/dL 0.1-1.1 BILI UNCON (test code = 9538784356) 0.2 mg/dL 0.1-1.1 BILI CONJ (test code = 5752972355) 0.0 mg/dL 0-0.3 T PROTEIN (test code = 2243888038) 6.0 g/dL 6.3-8.2 L ALBUMIN (test code = 2476756308) 2.8 g/dL 3.5-5 L ALK PHOS (test code = 9868212763) 222 U/L 34-122 H ALTv (test code = 1742-6) 27 U/L 5-50 AST(SGOT) (test code = 4869993456) 30 U/L 13-40 Lab Interpretation (test code = Abnormal 58406-7) [facility] GLUCOSE (AUTOMATED)2020-08-22 10:11:00 Test Item Value Reference Range Interpretation Comments POCT GLU (test code = 0474254644) 196 mg/dL 70-110 H Lab Interpretation (test code = Abnormal 06769-7) [facility] GLUCOSE (AUTOMATED)2020-08-22 07:15:00 Test Item Value Reference Range Interpretation Comments POCT GLU (test code = 1192865325) 183 mg/dL 70-110 H Lab Interpretation (test code = Abnormal 99836-5) [facility] GLUCOSE (AUTOMATED)2020-08-22 02:30:00 Test Item Value Reference Range Interpretation Comments POCT GLU (test code = 3782051701) 295 mg/dL 70-110 H Lab Interpretation (test code = Abnormal 95013-8) [facility] GLUCOSE (AUTOMATED)2020-08-21 23:46:00 Test Item Value Reference Range Interpretation Comments POCT GLU (test code = 5553039363) 258 mg/dL 70-110 H Lab Interpretation (test code = Abnormal 58769-0) [facility] CenterC-REACTIVE [id number] 18:50:00 Test Item Value Reference Range Interpretation Comments CRP (test code = 3932835936) 15.5 mg/dL <0.8 H Lab Interpretation (test code = Abnormal 76316-7) [facility] CenterPOCT [facility]UCOSE (AUTOMATED)2020-08-21 18:21:00 Test Item Value Reference Range Interpretation Comments POCT GLU (test code = 5670633445) 297 mg/dL 70-110 H Lab Interpretation (test code = Abnormal 68786-9) [facility] CenterETHANOL2020-11-09 16:24:00 Test Item Value Reference Range Interpretation Comments ALCOHOL (test code = <10 mg/dL 7538581499) JAMES (test code = Toxic Greater than or JAMES) equal to 80 mg/dL. NOTE: Whole blood values are approximately 10% to 15% lower than serum and plasma. [facility] CenterGALV/CLC ONLY - URINE DRUG (IMMUNOASSAY) - 4 ER [id number] 15:36:00 Test Item Value Reference Range Interpretation Comments AMPHET (test code = Negative Negative 8626016490) Cocaine Metabolite (test Negative Negative code = 3731867986) OPIATES (test code = Presumptive Positive Negative A 9584795276) THC (test code = Negative Negative 2903688417) JAMES (test code = JAMES) Urine Drug Cutoff Ranges Amphetamine: ? 1,000 ng/mLCocaine: ? 150 ng/mLOpiates: ? 300 ng/mLCannabinoids: ?50 ng/mL The results are to be used only for medical (i.e., treatment) purposes. Unconfirmed screening results must not be used for non-medical purposes (e.g., employment testing, legal testing). Lab Interpretation (test Abnormal code = 48269-3) [facility] SYPHILIS [id number] 15:04:00 Test Item Value Reference Range Interpretation Comments Syphilis IgG/IgM (test Non-reactive Non-reactive code = 17817-6) JAMES (test code = JAMES) Non-reactive - No serologic evidence of T. pallidum infection. Cannot exclude incubating or early syphilis. Submit a second specimen in 2-4 weeks if syphilis is clinically suspected. Equivocal - Further testing to follow. Reactive - Further testing to follow. Lab Interpretation (test Normal code = 57021-1) [facility] CenterUrinalysis2020-11-09 14:52:00 Test Item Value Reference Range Interpretation Comments APPEARANCE (test code = Clear Clear 2525075599) COLOR (test code = Yellow Yellow 3639391654) PH (test code = 4.8-8.0 0309557361) SP GRAVITY (test code = 1.003-1.030 6878533018) GLU U QUAL (test code = 500 mg/dL Normal A 5910864215) BLOOD (test code = Negative Negative 2028554014) KETONES (test code = 20 mg/dL Negative A 3782280295) PROTEIN (test code = Negative Negative 2887-8) UROBILIN (test code = Normal Normal 4271635718) BILIRUBIN (test code = Negative Negative 8640996780) NITRITE (test code = Negative Negative 3054528037) LEUK RYAN (test code = Negative Negative 1388545160) RBC/HPF (test code = <1 See_Comment [Autom ated message] 0955567727) The system [employer] generated this result transmit ronan reference range : 0 - 3 HPF. The refe rence range was not u sed to interpret th is result as normal/abnormal . WBC/HPF (test code = See_Comment [Autom ated message] 5303113878) The system [employer]space generated this result transmit ronan reference range : 0 - 5 HPF. The refe rence range was not u sed to interpret th is result as normal/abnormal . BACTERIA (test code = Negative Negative 5003631810) MUCOUS (test code = Slight Negative LPF A 0349805935) Lab Interpretation (test Abnormal code = 17914-7) [facility] CenterACTIVATED PARTIAL THRMPLAS [id number] 13:45:00 Test Item Value Reference Range Interpretation Comments APTT Patient (test code = See_Comment [ Automated message] 3173-2) The system [employer] generated this result transmitted ref erence range: 26 - 36 Seconds. The re ference range was not u sed to interpret this result as normal/abnor mal. Lab Interpretation (test Normal code = 38456-1) [facility] CenterPOCT GLUCOSE (AUTOMATED)2020-08-21 13:45:00 Test Item Value Reference Range Interpretation Comments POCT GLU (test code = 1212180878) 246 mg/dL 70-110 H Lab Interpretation (test code = Abnormal 41767-1) [facility] CenterHIV 1/2 AG-AB WITH [id number] 12:32:00 Test Item Value Reference Range Interpretation Comments HIV Negative Negative Semi-quantitative (test code = 30159-1) JAMES (test code = Non-reactive for HIV-1 JAMES) antigen and HIV-1/HIV-2 antibodies. ?No laboratory evidence of HIV infection. ?Repeat in 2-4 weeks if acute HIV infection is suspected. [facility] WITH [id number] 12:18:00 Test Item Value Reference Range Interpretation [...] RDW-SD (test code = 44.4 fL 38.5-51.6 61310-0) RDW-CV (test code = 14.5 % 12.1-15.4 788-0) PLT (test code = See_Comment H [Automated 777-3) message] The sy stem which generated this result transmitted reference range : 150 - 328 10*3/ ?L. The reference r torito was not used to interpret this result as normal/abnormal . MPV (test code = 8.5 fL 9.8-13 L 12827-7) NRBC/100 WBC (test See_Comment [Automat ed code = 7924702729) message] The system which generated this result transmitted reference range : 0.0 - 10.0 /100 WBCs. The refer ence range was not u sed to interpret th is result as normal/abnormal . NRBC x10^3 (test code <0.01 See_Comment [Auto mated = 4105600853) message] The s ystem which generated this result transmitted reference range : 10*3/?L. The reference range was not used to interpret this result as normal/abnormal . GRAN MAT (NEUT) % 90.4 % (test code = 770-8) IMM GRAN % (test code 1.30 % = 5226649105) LYMPH % (test code = 7.1 % 736-9) MONO % (test code = 0.5 % 5905-5) EOS % (test code = 0.1 % 713-8) BASO % (test code = 0.6 % 706-2) GRAN MAT x10^3(ANC) 7.74 10*3/uL 1.99-6.95 H (test code = 2217614691) IMM GRAN x10^3 (test 0.11 10*3/uL 0-0.06 H code = 7029754445) LYMPH x10^3 (test code 0.61 10*3/uL 1.09-3.23 L = 731-0) MONO x10^3 (test code 0.04 10*3/uL 0.36-1.02 L = 742-7) EOS x10^3 (test code = <0.03 0.06-0.53 L 711-2) BASO x10^3 (test code 0.05 10*3/uL 0.01-0.09 = 704-7) POLYCHROMASIA (test 2+ See_Comment [Automa ronan code = 01837-8) message] The system which generated this result transmitted reference range : 2+. The referen ce range was not u sed to interpret th is result as normal/abnormal . BANDS (test code = Increased A 1485300430) Lab Interpretation Abnormal (test code = 30352-3) [facility] CenterPROCALCITONIN2020-11-09 11:48:00 Test Item Value Reference Range Interpretation Comments Procalcitonin (test 0.36 ng/mL <0.07 H code = 7644384008) JAMES (test code = JAMES) INTERPRETATION OF [...] For further information please refer to:[email or web address] Lab Interpretation Abnormal (test code = 99089-2) [facility] CenterLANVATE [id number] 10:53:00 Test Item Value Reference Range Interpretation Comments LDH (test code = 3496994569) 351 U/L 300-600 Lab Interpretation (test code = Normal 94778-7) [facility]ED[facility]ENTATION [id number] 10:07:00 Test Item Value Reference Range Interpretation Comments ESR (test code = See_Comment H [Automated message] 7789230653) The system [employer] generated this result transmitted ref erence range: 0 - 10 m m/HR. The reference r torito was not used to interpret this result as normal/abnor mal. Lab Interpretation (test Abnormal code = 86981-1) [facility] (AUTOMATED)2020-08-21 09:45:00 Test Item Value Reference Range Interpretation Comments POCT GLU (test code = 7211244137) 287 mg/dL 70-110 H Lab Interpretation (test code = Abnormal 27088-0) [facility] CenterGlycosylated Hemoglobin (A1C)2020-08-21 09:29:00 Test Item Value Reference Range Interpretation Comments HGB A1C (test code = 4548-4) 9.8 % 4-6 H Lab Interpretation (test code = Abnormal 91184-1) [facility] CenterCOVID-19 (ID NOW RAPID TESTING)2020-08-21 09:13:00 Test Item Value Reference Range Interpretation Comments SARS-CoV-2 Rapid ID NOW Not Detected Not Detected (test code = 62474-7) JAMES (test code = JAMES) ID NOW COVID-19 Assay is an isothermal nucleic acid amplification test intended for the qualitative detection of nucleic acid from SARS-CoV-2 viral RNA in nasopharyngeal ([employer]) specimens. It is used under Emergency Use [...] indicated. Lab Interpretation Normal (test code = 64807-5) [facility] CenterProthrombin Time / [id number] 08:59:00 Test Item Value Reference Range Interpretation Comments PROTIME PATIENT (test See_Comment H [Auto mated message] code = 5964-2) The system [employer] generated this result transmitted ref erence range: 10.1 - 1 2.6 Seconds. The reference range was not used to int erpret this result as normal/abnormal . INR (test code = 6301-6) Nor mal INR <1.1; Warfarin Therap eutic range 2.0 to 3. 0 or 2.5 to 3.5, dep ending upon the indica tions. Lab Interpretation (test Abnormal code = 44943-3) [facility]eraPTT2020-11-09 08:59:00 Test Item Value Reference Range Interpretation Comments APTT Patient (test code = See_Comment [ Automated message] 3173-2) The system [employer] generated this result transmitted ref erence range: 26 - 36 Seconds. The re ference range was not u sed to interpret this result as normal/abnor mal. Lab Interpretation (test Normal code = 87505-9) [facility] CenterBASI METABOLIC PANEL (NA, K, CL, CO2, GLUCOSE, BUN, CREATININE, CA)2020-08-21 08:52:00 Test Item Value Reference Range Interpretation Comments NA (test code = 136 mmol/L 135-145 3881145712) K (test code = 4.3 mmol/L 3.5-5 6874033218) CL (test code = 104 mmol/L 98-108 6549523280) CO2 TOTAL (test code = 24 mmol/L 23-31 7755461541) AGAP (test code = 2-16 6914796139) BUN (test code = 8 mg/dL 7-23 2552657555) GLUCOSE (test code = 308 mg/dL 70-110 H 8585573536) CREATININE (test code = 0.72 mg/dL 0.6-1.25 1253563990) CALCIUM (test code = 7.8 mg/dL 8.6-10.6 L 5138607981) eGFR Calculation mL/min/1.73m2 (Non-) (test code = 8495572749) eGFR Calculation mL/min/1.73m2 () (test code = 1728650195) JAMES (test code = JAMES) Association of [...] tests). Lab Interpretation Abnormal (test code = 83468-8) [facility] CenterHEPATIC FUNCTION PANEL (32558) (ALB,T.PRO,BILI T,BU/BC,ALT,AST,ALK PHOS)2020-08-21 08:52:00 Test Item Value Reference Range Interpretation Comments TOTAL BILI (test code = 7603197473) 0.8 mg/dL 0.1-1.1 BILI UNCON (test code = 6877824172) 0.3 mg/dL 0.1-1.1 BILI CONJ (test code = 8334218100) 0.0 mg/dL 0-0.3 T PROTEIN (test code = 4397092673) 5.7 g/dL 6.3-8.2 L ALBUMIN (test code = 0245019392) 2.7 g/dL 3.5-5 L ALK PHOS (test code = 3197594396) 245 U/L 34-122 H ALTv (test code = 1742-6) 37 U/L 5-50 AST(SGOT) (test code = 7667509247) 43 U/L 13-40 H Lab Interpretation (test code = Abnormal 62378-0) [facility]
[2022-03-13] MEDS ORDERED: KETOROLAC 30 MG/ML INJ ONE (18:52)
[2022-03-13 19:03] LABS: Urine Blood Negative (Negative); Urine Glucose Negative (Negative); Urine Protein Negative (Negative)
[2022-03-13 19:15] LABS: Urine Bacteria <20 /HPF (NONE SEEN); Urine RBC <5 /HPF (NONE SEEN)
--- NOTE | 2022-03-13 19:39 | EDPHYS ---
Physician Documentation [facility] Name: Kiel Ngo Age: 71 yrs Sex: Male : 1950 Arrival Date: 03/13/2022 Time: 17:41 Bed 16 Private MD: ED Physician Calvin Wright HPI: 03/13 18:00 This 71 yrs old Male presents to ER via EMS with complaints of Altered Mental Status - cp patient was arguing with and throwing things around the house per the , EMS report possible UTI-strong odor in the home.. 18:00 The patient or guardian reports pain. cp 18:00 The complaints affect the right hip. Onset: The symptoms/episode began/occurred cp chronic. Associated signs and symptoms: Pertinent negatives: abdominal pain, chest pain, fever. EMS reports they were called to home of patient for reported AMS. Patient reported threw objects in home at . Patient presents alert times 3 with complaints of right hip pain. Patient has chronic hip pain and denies any recent injury. Historical: - Allergies: 17:48 Morphine; tw2 17:48 metformin; tw2 17:48 Demerol; tw2 - PMHx: 17:48 Atrial fibrillation; chronic back pain; Chronic right leg pain; neuropathy; tw2 - PSHx: 17:48 back sx; PANCREAS SX; R. Ankle SX; tw2 - Immunization history:: Adult Immunizations. - Social history:: Smoking status: . ROS: 18:05 Constitutional: Negative for body aches, chills, fever, poor PO intake. cp 18:05 Eyes: Negative for injury, pain, redness, and discharge. cp 18:05 ENT: Negative for drainage from ear(s), ear pain, sore throat, difficulty swallowing, difficulty handling secretions. 18:05 Cardiovascular: Negative for chest pain. 18:05 Respiratory: Negative for cough, shortness of breath, wheezing. 18:05 Abdomen/GI: Negative for abdominal pain, vomiting, diarrhea, constipation. 18:05 : Positive for foul smelling urine, Negative for testicular pain 18:05 MS/extremity: Positive for pain, of the right hip. 18:05 Neuro: Negative for altered mental status, syncope, weakness. 18:05 All other systems are negative. Exam: 18:10 Constitutional: The patient appears in no acute distress, alert, awake, comfortable, cp non-toxic, well developed, well nourished. 18:10 Head/Face: Normocephalic, atraumatic. cp 18:10 Eyes: Periorbital structures: appear normal, Pupils: equal, round, and reactive to light and accomodation, Extraocular movements: intact throughout, Conjunctiva: normal, no exudate, no injection, Sclera: no appreciated abnormality, Lids and lashes: appear normal, bilaterally. 18:10 ENT: External ear(s): are unremarkable, Nose: is normal, Mouth: Lips: moist, Oral mucosa: moist, Posterior pharynx: Airway: no evidence of obstruction, patent. 18:10 Chest/axilla: Inspection: normal. 18:10 Cardiovascular: Rate: tachycardic, Edema: is not appreciated, JVD: is not appreciated. 18:10 Respiratory: the patient does not display signs of respiratory distress, Respirations: normal, no use of accessory muscles, no retractions, labored breathing, is not present. 18:10 Abdomen/GI: Inspection: abdomen appears normal, Palpation: abdomen is soft and non-tender, in all quadrants. 18:10 Musculoskeletal/extremity: Extremities: grossly normal except: noted in the right hip: pain, tenderness. Vital Signs: 17:30 BP 150 / 90; Pulse 108; Resp 22; Temp 98.5(O); Pulse Ox 98% on R/A; Weight 88.45 kg; jg9 Height 5 ft. 8 in. (172.72 cm); 18:30 BP 161 / 95; Pulse 110; Resp 20 S; Pulse Ox 100% on R/A; jg9 20:08 BP 142 / 92; Pulse 100; Resp 18; Pulse Ox 100% on R/A; tw5 17:30 Body Mass Index 29.65 (88.45 kg, 172.72 cm) jg9 MDM: 17:53 Patient medically screened. cp 18:00 Differential diagnosis: intertrochanteric fracture, femoral neck fracture, femoral cp shaft fracture, bursitis, UTI, sepsis, chronic pain. 19:37 Data reviewed: vital signs, nurses notes, lab test result(s). cp 19:37 Counseling: I had a detailed discussion with the patient and/or guardian regarding: the cp historical points, exam findings, and any diagnostic results supporting the discharge/admit diagnosis, lab results, to return to the emergency department if symptoms worsen or persist or if there are any questions or concerns that arise at home. Response to treatment: the patient's symptoms have mildly improved after treatment, and as a result, I will discharge patient. 03/13 17:53 Order name: Urine Microscopic Only; Complete Time: 19:24 cp 03/13 19:04 Order name: Urine Dipstick-Ancillary; Complete Time: 19:24 EDMS 03/13 19:29 Interpretation: UKET 2+; Reviewed. cp 03/13 17:53 Order name: Urine Dipstick-Ancillary (obtain specimen); Complete Time: 19:08 cp Administered Medications: 18:58 Drug: TORadol (ketorolac) 30 mg Route: IM; Site: right vastus lateralis; jg9 Disposition Summary: 03/13/22 19:38 Discharge Ordered Location: Home cp Problem: chronic cp Symptoms: have improved cp Condition: Stable cp Diagnosis - Pain in hip - chronic cp Followup: cp - With: Private Physician - When: 1 - 2 days - Reason: Recheck today's complaints Discharge Instructions: - Discharge Summary Sheet cp - Hip Pain cp Forms: - Medication Reconciliation Form cp - Thank You Letter cp - Antibiotic Education cp - Prescription Opioid Use cp Signatures: Dispatcher [employer] EDAZ Stu Mcarthur PA PA cp Wise, Tara, RN RN tw2 Roxane Sanchez RN RN jg9 Cindy Shook PA PA sb3
--- NOTE | 2022-03-13 19:39 | ER ---
Nurse's Notes [facility] Name: Kiel Ngo Age: 71 yrs Sex: Male : 1950 Arrival Date: 03/13/2022 Time: 17:41 Bed 16 Private MD: Diagnosis: Pain in hip-chronic Presentation: 03/13 17:30 Chief complaint: EMS states: Patient not acting himself, throwing things around the [facility] house, possible UTI. Coronavirus screen: Vaccine status: Patient reports being unvaccinated. Ebola Screen: Patient negative for fever greater than or equal to 101.5 degrees Fahrenheit, and additional compatible Ebola Virus Disease symptoms Patient denies exposure to infectious person. Patient denies travel to an Ebola-affected area in the 21 days before illness onset. Initial Sepsis Screen: Does the patient meet any 2 criteria? No. Patient's initial sepsis screen is negative. Does the patient have a suspected source of infection? No. Patient's initial sepsis screen is negative. Risk Assessment: Do you want to hurt yourself or someone else? Patient reports no desire to harm self or others. Onset of symptoms is unknown. 17:30 Method Of Arrival: EMS: [facility] 17:30 Acuity: JOZEF 3 g9 Triage Assessment: 17:48 General: Appears in no apparent distress. obese, Behavior is calm, cooperative, tw2 appropriate for age. Pain: Complains of pain in back. Historical: - Allergies: 17:48 Morphine; tw2 17:48 metformin; tw2 17:48 Demerol; tw2 - PMHx: 17:48 Atrial fibrillation; chronic back pain; Chronic right leg pain; neuropathy; tw2 - PSHx: 17:48 back sx; PANCREAS SX; R. Ankle SX; tw2 - Immunization history:: Adult Immunizations. - Social history:: Smoking status: . Screenin:47 Abuse screen: Denies threats or abuse. Nutritional screening: No deficits noted. tw2 Tuberculosis screening: No symptoms or risk factors identified. Fall Risk Secondary diagnosis (15 points). Assessment: 18:43 Reassessment: No changes from previously documented assessment. Patient and/or family [facility] updated on plan of care and expected duration. Pain level reassessed. Patient is alert, oriented x 3, equal unlabored respirations, skin warm/dry/pink. 20:08 General: Appears in no apparent distress. Behavior is appropriate for age. tw5 Vital Signs: 17:30 BP 150 / 90; Pulse 108; Resp 22; Temp 98.5(O); Pulse Ox 98% on R/A; Weight 88.45 kg; jg9 Height 5 ft. 8 in. (172.72 cm); 18:30 BP 161 / 95; Pulse 110; Resp 20 S; Pulse Ox 100% on R/A; jg9 20:08 BP 142 / 92; Pulse 100; Resp 18; Pulse Ox 100% on R/A; tw5 17:30 Body Mass Index 29.65 (88.45 kg, 172.72 cm) jg9 ED Course: 17:41 Patient arrived in ED. jg9 17:47 Side rails up X2. Pulse ox on. NIBP on. tw2 17:48 Stu Mcarthur PA is PHCP. cp 17:48 Calvin Wright MD is Attending Physician. cp 17:48 Arm band placed on. tw2 18:40 Roxane Sanchez, DIEGO is Primary Nurse. jg9 18:43 Triage completed. jg9 20:08 No provider procedures requiring assistance completed. Patient did not have IV access tw5 during this emergency room visit. Administered Medications: 18:58 Drug: TORadol (ketorolac) 30 mg Route: IM; Site: right vastus lateralis; jg9 Medication: 18:43 VIS not applicable for this client. jg9 Outcome: 19:38 Discharge ordered by . cp 20:08 Discharged to home via ambulance. tw5 20:08 Condition: stable 20:08 Discharge instructions given to patient, Instructed on discharge instructions, Demonstrated understanding of instructions. 20:09 Patient left the ED. tw5 Signatures: Stu Mcarthur PA PA cp Wise, Tara, RN RN tw2 Niesha Hsieh tw5 Roxane Sanchez RN RN jg9
[2022-03-13 20:14] VITALS: O2SAT 100
[2022-03-13 20:16] VITALS: BP 142/92
== END 2022-03-13 20:09 | disposition home or self-care (01) ==
LOC: ER 17:39
DX: M25.551 Pain in right hip (principal); R41.82 Altered mental status, unspecified; G89.29 Other chronic pain; I48.91 Unspecified atrial fibrillation; Z88.5 Allergy status to narcotic agent; Z88.8 Allergy status to other drugs, medicaments and biological substances
CPT/HCPCS: 81003; 81015; 96372; 99283

== ENCOUNTER 2022-04-25 04:12 | Observation (INO) | payer OTHER ==
[2022-04-25 05:25] LABS: Absolute Lymphocytes (CBC) 1.2 K/uL (0.7-4.9); Hematocrit 41.7 % (39.6-49.0); Lymphocytes % 13.5 % (15.3-44.8); MCV 82.8 fL (80-100); MPV 6.3 fL (7.6-11.3); RBC Red Blood Cell Count 5.04 M/uL (4.33-5.43)
[2022-04-25 05:36] LABS: Protime INR 1.04
[2022-04-25 05:45] LABS: Albumin 3.5 g/dL (3.4-5.0); Bilirubin Total 0.7 mg/dL (0.2-1.0); Potassium 3.8 mmol/L (3.5-5.1); Protein, Total 7.3 g/dL (6.4-8.2)
[2022-04-25] MEDS ORDERED: NA CHLORIDE 0.9% 1,000 ML ONE ×2 (06:02→12:55)
[2022-04-25 06:19] LABS: Urine Blood 2+ (Negative); Urine Glucose Negative (Negative); Urine Protein 2+ (Negative)
--- NOTE | 2022-04-25 06:38 | ER ---
Nurse's Notes [facility] Name: Kiel Ngo Age: 71 yrs Sex: Male : 1950 Arrival Date: 04/25/2022 Time: 04:15 Bed 8 Private MD: Diagnosis: Pyelonephritis acute;Tachycardia, unspecified;Penile lesion Presentation: 04/25 04:15 Chief complaint: EMS states: pt reports nausea, vomiting x2 days, pt also reports as6 painful urination. Coronavirus screen: At this time, the client does not indicate any symptoms associated with coronavirus-19. Ebola Screen: No symptoms or risks identified at this time. Initial Sepsis Screen: Does the patient meet any 2 criteria? HR > 90 bpm. Does the patient have a suspected source of infection? No. Patient's initial sepsis screen is negative. Risk Assessment: Do you want to hurt yourself or someone else? Patient reports no desire to harm self or others. Onset of symptoms was April 23, 2022. 04:15 Method Of Arrival: EMS: [facility] as6 04:15 Acuity: JOZEF 3 as6 Historical: - Allergies: 04:31 Demerol; as6 04:31 metformin; as6 04:31 Morphine; as6 - PMHx: 04:31 Atrial fibrillation; chronic back pain; Chronic right leg pain; neuropathy; as6 - PSHx: 04:31 back sx; PANCREAS SX; R. Ankle SX; as6 - Immunization history:: Client reports having NOT received the Covid vaccine. - Social history:: Smoking status: Patient denies any tobacco usage or history of. Screenin:13 Abuse screen: Denies threats or abuse. Denies injuries from another. Nutritional as6 screening: No deficits noted. Tuberculosis screening: No symptoms or risk factors identified. Fall Risk None identified. Assessment: 04:15 General: Appears in no apparent distress. Behavior is calm, cooperative. Pain: as6 Complains of pain in back and groin. Neuro: Level of Consciousness is awake, alert, obeys commands, Oriented to person, place, time, situation. Cardiovascular: Rhythm is sinus tachycardia. Respiratory: Respiratory effort is even, unlabored. : Reports burning with urination, pain with urination. Derm: Wound noted meatus Wound is lesion. 07:05 Reassessment: Report received from date night caregiver RN. ll1 07:20 Reassessment: No changes from previously documented assessment. Patient and/or family ll1 updated on plan of care and expected duration. Pain level reassessed. Patient is alert, oriented x 3, equal unlabored respirations, skin warm/dry/pink. Patient states feeling better. Vital Signs: 04:15 BP 163 / 102; Pulse 128; Resp 14 S; Temp 97.7(O); Pulse Ox 95% on R/A; Weight 90.72 kg as6 (R); Height 5 ft. 11 in. (180.34 cm) (R); Pain 10/10; 05:53 BP 154 / 90; Pulse 139; Resp 13 S; Pulse Ox 98% on R/A; as6 06:54 BP 177 / 99; Pulse 127; Resp 12 S; Pulse Ox 98% on R/A; as6 07:27 BP 165 / 88; Pulse 112; ll1 20:02 BP 114 / 61; Pulse 82; Resp 18; Pulse Ox 97% on R/A; ld1 04:15 Body Mass Index 27.89 (90.72 kg, 180.34 cm) as6 ED Course: 04:15 Patient arrived in ED. as6 04:22 Scotty Guzman DO is Attending Physician. ms3 04:31 Triage completed. as6 04:32 Arm band placed on. as6 04:45 Chest Single View XRAY In Process Unspecified. EDMS 05:13 Adrian López, DIEGO is Primary Nurse. as6 05:14 Bed in low position. Call light in reach. Side rails up X2. Client placed on continuous as6 cardiac and pulse oximetry monitoring. NIBP monitoring applied. 05:14 Inserted saline lock: 22 gauge in right hand, using aseptic technique. Blood collected. as6 06:36 Isai Snow MD is Hospitalizing Provider. ms3 07:16 Primary Nurse role handed off by Adrian López, DIEGO eb 10:23 Tristian Mccormack, DIEGO is Primary Nurse. ll1 19:39 No provider procedures requiring assistance completed. Patient admitted, IV remains in as6 place. Administered Medications: 06:05 Drug: NS 0.9% 1000 ml Route: IV; Rate: 1000 ml; Site: right hand; as6 10:03 Follow up: Response: No adverse reaction; IV Status: Completed infusion; IV Intake: ll1 1000ml 06:53 Drug: Rocephin (cefTRIAXone) 1 grams Route: IV; Rate: calculated rate; Site: right hand;as6 08:00 Follow up: Response: No adverse reaction; IV Status: Completed infusion; IV Intake: 64vpxn4 06:53 Drug: Zofran (Ondansetron) 4 mg Route: IVP; Site: right hand; as6 07:28 Follow up: Response: No adverse reaction; RASS: Alert and Calm (0) ll1 06:53 Drug: morphine 4 mg Route: IVP; Infused Over: 4 mins; Site: right hand; as6 07:27 Follow up: Response: No adverse reaction; Pain is decreased; RASS: Alert and Calm (0) ll1 Medication: 05:14 VIS not applicable for this client. as6 Intake: 08:00 IV: 10ml; Total: 10ml. ll1 10:03 IV: 1000ml; Total: 1010ml. ll1 Outcome: 06:37 Decision to Hospitalize by Provider. ms3 19:39 Admitted to Med/surg accompanied by tech, via stretcher, room 223, with chart. as6 19:39 Condition: stable 19:39 Instructed on the need for admit. 20:13 Patient left the ED. as6 Signatures: Dispatcher [employer] EDMS Shannan Moraes Lynsay RN RN ll1 Scotty Guzman DO DO ms3 Danna Moreno RN RN ld1 Adrian López RN RN as6
--- NOTE | 2022-04-25 06:38 | EDPHYS ---
Physician Documentation [facility] Name: Kiel Ngo Age: 71 yrs Sex: Male : 1950 Arrival Date: 04/25/2022 Time: 04:15 Bed 8 Private MD: ED Physician Scotty Guzman HPI: 04/25 04:48 This 71 yrs old Male presents to ER via EMS with complaints of nausea and vomiting. ms3 04:48 The patient presents to the emergency department with nausea, that is moderate, ms3 vomiting. Onset: The symptoms/episode began/occurred 2 day(s) ago. Possible causes: unknown. The symptoms are aggravated by nothing. The symptoms are alleviated by nothing. Associated signs and symptoms: Pertinent positives: dysuria, nausea, vomiting, Pertinent negatives: fever. Historical: - Allergies: 04:31 Demerol; as6 04:31 metformin; as6 04:31 Morphine; as6 - PMHx: 04:31 Atrial fibrillation; chronic back pain; Chronic right leg pain; neuropathy; as6 - PSHx: 04:31 back sx; PANCREAS SX; R. Ankle SX; as6 - Immunization history:: Client reports having NOT received the Covid vaccine. - Social history:: Smoking status: Patient denies any tobacco usage or history of. ROS: 04:48 Constitutional: Negative for fever, and chills. Neck: Negative for injury, pain, and ms3 swelling, Cardiovascular: Negative for chest pain, and palpitations. Respiratory: Negative for shortness of breath, cough, wheezing, and pleuritic chest pain. 04:48 Skin: Negative for injury, rash, and discoloration, Neuro: Negative for headache, weakness, numbness, tingling. 04:48 Abdomen/GI: Positive for nausea and vomiting. 04:48 : Positive for hematuria, burning with urination. 04:48 All other systems are negative. Exam: 04:47 ECG was reviewed by the Attending Physician. ms3 04:48 Constitutional: This is a well developed, well nourished patient who is awake, alert, ms3 and in no acute distress. Head/Face: Normocephalic, atraumatic. Neck: Trachea midline, no cervical lymphadenopathy. Supple, full range of motion without nuchal rigidity, or vertebral point tenderness. No Meningismus. Chest/axilla: Normal chest wall appearance and motion. Nontender with no deformity. Cardiovascular: Regular rate and rhythm with a normal S1 and S2. No gallops, murmurs, or rubs. Normal PMI, no JVD. No pulse deficits. Respiratory: Lungs have equal breath sounds bilaterally, clear to auscultation and percussion. No rales, rhonchi or wheezes noted. No increased work of breathing, no retractions or nasal flaring. Abdomen/GI: Soft, non-tender, with normal bowel sounds. No distension or tympany. No guarding or rebound. No evidence of tenderness throughout. Skin: Warm, dry with normal turgor. Normal color with no rashes, no lesions, and no evidence of cellulitis. MS/ Extremity: Pulses equal, no cyanosis. Neurovascular intact. Full, normal range of motion. Psych: Awake, alert, with orientation to person, place and time. Behavior, mood, and affect are within normal limits. Vital Signs: 04:15 BP 163 / 102; Pulse 128; Resp 14 S; Temp 97.7(O); Pulse Ox 95% on R/A; Weight 90.72 kg as6 (R); Height 5 ft. 11 in. (180.34 cm) (R); Pain 10/10; 05:53 BP 154 / 90; Pulse 139; Resp 13 S; Pulse Ox 98% on R/A; as6 06:54 BP 177 / 99; Pulse 127; Resp 12 S; Pulse Ox 98% on R/A; as6 07:27 BP 165 / 88; Pulse 112; ll1 20:02 BP 114 / 61; Pulse 82; Resp 18; Pulse Ox 97% on R/A; ld1 04:15 Body Mass Index 27.89 (90.72 kg, 180.34 cm) as6 MDM: 04:48 Patient medically screened. ms3 04:48 Differential diagnosis: Nonspecific abd pain, sepsis vs pyelonephritis. ms3 06:36 Data reviewed: vital signs, nurses notes, lab test result(s), radiologic studies, plain ms3 films, and as a result, I will admit patient. Data interpreted: business consult: rate is 124 beats/min, rhythm is sinus tachycardia, with no ectopy, Interpretation: normal rhythm, tachycardia. Counseling: I had a detailed discussion with the patient and/or guardian regarding: the historical points, exam findings, and any diagnostic results supporting the discharge/admit diagnosis, lab results, radiology results, the need for further work-up and treatment in the hospital. ED course: Discussed case with Dr Snow and he accepts patient as admission. Would like consult for Dr Nnamdi solares. Discussed plan with patient and he understands/ agrees with plan.. 04/25 04:28 Order name: Blood Culture Adult (2) 04/25 04:28 Order name: CBC with Diff; Complete Time: 05:32 ms3 04/25 04:28 Order name: CMP; Complete Time: 06:18 ms3 04/25 04:28 Order name: Lactate; Complete Time: 06:18 ms3 04/25 04:28 Order name: Protime (+inr); Complete Time: 06:18 ms3 04/25 04:28 Order name: Ptt, Activated; Complete Time: 06:18 ms3 04/25 04:28 Order name: Urine Microscopic Only 3 04/25 04:28 Order name: Chest Single View XRAY 3 04/25 05:18 Order name: Glucose, Ancillary Testing; Complete Time: 05:31 EDMS 04/25 06:19 Order name: Urine Dipstick-Ancillary; Complete Time: 06:24 EDMS 04/25 06:43 Order name: Urine Culture EDMS 04/25 07:00 Order name: COVID-19 SARS RT PCR (Document "Date of Onset" if Symptomatic) 5 04/25 10:04 Order name: SARS-COV-2 RT PCR EDMS 04/25 04:28 Order name: Accucheck; Complete Time: 05:13 3 04/25 04:28 Order name: Cardiac monitoring; Complete Time: 04:32 04/25 04:28 Order name: EKG - Nurse/Tech; Complete Time: 05:13 ms04/25 04:28 Order name: IV Saline Lock - Large Bore; Complete Time: 05:13 ms04/25 04:28 Order name: Labs collected and sent; Complete Time: 05:13 ms04/25 04:28 Order name: O2 Per Protocol; Complete Time: 04:32 ms04/25 04:28 Order name: O2 Sat Monitoring; Complete Time: 04:32 ms04/25 04:28 Order name: Urine Dipstick-Ancillary (obtain specimen); Complete Time: 06:19 ms3 04/25 06:46 Order name: CONS Physician Consult EDMS EC:47 Rate is 126 beats/min. Rhythm is regular. QRS [place] is Normal. Clinical impression: ms3 Sinus tachycardia. Interpreted by me. Reviewed by me. Administered Medications: 06:05 Drug: NS 0.9% 1000 ml Route: IV; Rate: 1000 ml; Site: right hand; as6 10:03 Follow up: Response: No adverse reaction; IV Status: Completed infusion; IV Intake: ll1 1000ml 06:53 Drug: Rocephin (cefTRIAXone) 1 grams Route: IV; Rate: calculated rate; Site: right hand;as6 08:00 Follow up: Response: No adverse reaction; IV Status: Completed infusion; IV Intake: [id number] 06:53 Drug: Zofran (Ondansetron) 4 mg Route: IVP; Site: right hand; as6 07:28 Follow up: Response: No adverse reaction; RASS: Alert and Calm (0) ll1 06:53 Drug: morphine 4 mg Route: IVP; Infused Over: 4 mins; Site: right hand; as6 07:27 Follow up: Response: No adverse reaction; Pain is decreased; RASS: Alert and Calm (0) ll1 Disposition Summary: 04/25/22 06:37 Hospitalization Ordered Hospitalization Status: Inpatient Admission ms3 Provider: Isai Snow ms3 Condition: Stable ms3 Problem: new ms3 Symptoms: are unchanged ms3 Bed/Room Type: Standard ms3 Location: Telemetry/MedSurg (Inpatient)(04/25/22 19:32) Room Assignment: 223(04/25/22 19:32) Diagnosis - Pyelonephritis acute ms3 - Tachycardia, unspecified ms3 - Penile lesion ms3 Forms: - Medication Reconciliation Form ms3 - SBAR form ms3 Signatures: Dispatcher [facility] EDLA Sandy Ngo RN RN Dayday Olivares ds4 Scotty Guzman DO DO ms3 Adrian López RN RN as6 Tristian Mccormack RN ll1 Corrections: (The following items were deleted from the chart) 18:11 06:37 Telemetry/MedSurg (Inpatient) ms3 ds4 18:11 06:37 ms3 ds4 18:12 18:11 ds4 ds4 19:32 18:11 [facility] ER HOLD ds4 mw 19:32 18:12 ERHOLD- ds4 mw
[2022-04-25 06:39] LABS: Urine Bacteria >50 /HPF (NONE SEEN); Urine RBC <5 /HPF (NONE SEEN)
[2022-04-25] MEDS ORDERED: ACETAMINOPHEN 500 MG TAB PO PRN (06:49)
[2022-04-25] MEDS ORDERED: CEFTRIAXONE 1000 MG/VIAL ONE (06:49)
[2022-04-25] MEDS ORDERED: MORPHINE 4 MG/ML SYR ONE ×2 (06:49→10:36)
[2022-04-25] MEDS ORDERED: ONDANSETRON 4 MG/2 ML VIAL ONE ×2 (06:53→09:25)
[2022-04-25 07:39] VITALS: BMI 25.0
[2022-04-25] MEDS ORDERED: VANCOMYCIN 1 GM in NA CHLORIDE 0.9% 250 ML IVPB SCH (09:00)
[2022-04-25] MEDS: VANCOMYCIN 1.5 GM in NA CHLORIDE 0.9% 500 ML IVPB SCH (09:00)
[2022-04-25] MEDS: ONDANSETRON 4 MG/2 ML VIAL IV PRN ×2 (09:21→15:00)
[2022-04-25] MEDS: MORPHINE 4 MG/ML SYR IV PRN ×2 (10:54→15:00)
--- NOTE | 2022-04-25 12:52 | RAD REPORT ---
EXAM DESCRIPTION: RAD - Chest Single View - 04/25/2022 4:43 am CLINICAL HISTORY: The patient is 71 years old and is Male; dysuria TECHNIQUE: Single view of the chest. COMPARISON: No relevant prior studies available. FINDINGS: Lungs: No pulmonary vascular congestion or consolidation. Pleural space: Unremarkable. No pneumothorax. Heart: Unremarkable. No cardiomegaly. Mediastinum: Unremarkable. Bones/joints: Old right rib fractures. Degenerative changes in the right shoulder. Distal right clavicle resection. IMPRESSION: No acute cardiopulmonary process identified. Electronically signed by: Carie Alegria MD 04/25/2022 5:05 AM CDT Due to temporary technical issues with the PACS/Fluency reporting system, reports are being signed by the in house radiologists without review as a courtesy to insure prompt reporting. The interpreting radiologist is fully responsible for the content of the report.
[2022-04-25] MEDS: NA CHLORIDE 0.9% 1,000 ML IV SCH ×2 (12:53→22:19)
--- NOTE | 2022-04-25 13:04 | EKG ---
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
[2022-04-25] MEDS: DIPHENHYDRAMINE 25 MG TAB/CAP PO PRN ×2 (15:45→22:22)
[2022-04-25] MEDS: TIZANIDINE 4 MG TABLET PO PRN ×2 (15:45→22:22)
[2022-04-25 20:25] VITALS: O2SAT 97
--- NOTE | 2022-04-25 21:31 | P.HP ---
Certification for Inpatient Patient admitted to: Observation With expected LOS: <2 Midnights Practitioner: I am a practitioner with admitting privileges, knowledge of patient current condition, hospital course, and medical plan of care. Services: Services provided to patient in accordance with Admission requirements found in Title 42 Section 412.3 of the Code of Federal Regulations Patient History Date of Service: 04/25/22 Reason for admission: BURNING AT URINATION AND PENILE PUS POCKET AT THE TIP History of Present Illness: FRANCISCO IS A DIABETIC WHO IS BED BOUND FROM KNEE SURGERY COMPLICATION WHO IS POSSIBLY ADDICTED TO NARCOTICS AND KLONOPIN COMES WITH ABOVE SS. HE LOOKS COMFORTABLE TO ME AT ER VISIT. HE LATER ASKED NURSE TO CALL ME FOR KLONOPIN AND NARCOTICS. HE WAS ON KLONOPIN BEFORE. I QUIT GIVING HIM THAT HE ABUSED IT. HE WAS ASKED TO GO TO PSYCHIATRIST. SAME FOR NARCOTICS. HE GOES TO PAIN DOCTOR. HE IS NOT ABLE TO BATHE OR CLEAN WELL. Allergies meperidine HCl [From Demerol] Allergy (Severe, Verified 11/17/18 00:49) Anaphylaxis metformin Allergy (Intermediate, Verified 11/17/18 00:49) Anaphylaxis Clindamycin Allergy (Uncoded 11/17/18 00:49) Unknown Home medications list reviewed: Yes Home Medications: Tizanidine HCl [Zanaflex] 4 mg PO DAILY 03/11/21 clonazePAM [Clonazepam] 0.5 mg PO BID 03/11/21 hydrOXYzine HCL [Atarax*] 25 mg PO BID 03/11/21 Docusate [Colace Cap*] 100 mg PO DAILY #20 cap 03/13/21 Fluconazole [Diflucan] 100 mg PO DAILY #10 tablet 03/13/21 Glucerna Shake [Glucerna*] 237 ml PO BID #100 can 03/13/21 Valentín [Valentín*] 1 pkt PO BID #60 powd.pack 03/13/21 Metoprolol Tartrate [Lopressor*] 50 mg PO BID #60 tab 03/13/21 Minocycline HCl 100 mg PO DAILY #10 capsule 03/13/21 Nystatin Powder [Mycostatin (Powder)*] 1 appl TOP BID #1 btl 03/13/21 Sulfamethoxazole/Trimethoprim [Bactrim Ds Tablet] 1 each PO DAILY #7 tablet 03/13/21 Hydromorphone HCl [Dilaudid] 4 mg PO TID 12/03/21 clonazePAM [Klonopin Rapdis Tab] 0.25 mg PO DAILY PRN #30 tab.rapdis 12/04/21 - Past Medical/Surgical History Has patient received pneumonia vaccine in the past: Yes Diabetic: No -: IDDM -: ANXIETY -: AFIB -: Osteoarthritis -: Pancreatitis -: Lymphedema -: Chronic pain -: 3 foot surgeries -: PATRICIA knee surgery -: R shoulder surgery -: 3 back surgeries -: CHOLECYSTECTOMY Psychosocial/ Personal History: Lives at home with his - Family History Father -: Other (see notes) Notes: dementia Mother -: Other (see notes) Notes: Gallstones - Social History Smoking Status: Never smoker Alcohol use: No CD- Drugs: No Caffeine use: No Review of Systems 10-point ROS is otherwise unremarkable Physical Examination - Vital Signs Temperature: 97.2 F Blood Pressure: 114/61 Pulse: 82 Respirations: 18 Pulse Ox (%): 95 - Physical Exam General: Alert, In no apparent distress, Oriented x3, Obese HEENT: Atraumatic, PERRLA, Mucous membr. moist/pink, EOMI, Sclerae nonicteric Neck: Supple, 2+ carotid pulse no bruit, No LAD, Without JVD or thyroid abnormality Respiratory: Clear to auscultation bilaterally, Normal air movement Cardiovascular: Regular rate/rhythm, Normal S1 S2 Gastrointestinal: Normal bowel sounds, No tenderness Musculoskeletal: No tenderness, Contractures (KNEES.) Integumentary: No rashes, Other (PUSTULE AT THE TIP OF PENIS. INFLAMED. ) Neurological: Normal gait, Normal speech, Normal strength at 5/5 x4 extr, Normal tone, Normal affect Lymphatics: No axilla or inguinal lymphadenopathy - Studies Laboratory Data (last 24 hrs) 04/25/22 05:07: PT 11.4, INR 1.04, APTT 35.1 04/25/22 05:07: Sodium 136, Potassium 3.8, BUN 13, Creatinine 0.95, Glucose 152 H, Total Bilirubin 0.7, AST 13 L, ALT 27, Alkaline Phosphatase 248 H 04/25/22 05:07: WBC 9.1, Hgb 14.2, Hct 41.7, Plt Count 446 H Assessment and Plan - Problems (Diagnosis) (1) UTI (urinary tract infection) Current Visit: Yes Status: Acute Plan: WITH PUSTULE AT TIP OF PENIS. ADD VANCOMYCIN MAY BE ABLE TO GO HOME IN AM. DR. GARCIA CONSULTED. (2) H/O knee surgery Current Visit: No Status: Acute (3) Diabetes mellitus Onset Date: 10/31/14 Current Visit: No Status: Chronic (4) Controlled drug dependence Current Visit: Yes Status: Chronic Plan: HE WILL NOT GET CONTROLLED RX FROM ME. HE HAS TO BE WITH PAIN DOCTORS. I DON'T SEE ANY RECORD OF DRUGS SINCE DECEMBER IN PDMP. HE WAS OVERUSING DILAUDID ALSO. - Advance Directives Does patient have a Living Will: No Does patient have a Durable POA for Healthcare: No
[2022-04-25] MEDS: TRAMADOL HCL 50 MG TAB PO PRN (22:21)
[2022-04-26] MEDS: HYDROMORPHONE ORAL 2 MG TAB PO PRN ×2 (01:39→09:40)
[2022-04-26] MEDS: ONDANSETRON 4 MG/2 ML VIAL IV PRN ×2 (01:40→09:30)
[2022-04-26] MEDS: VANCOMYCIN 1.5 GM in NA CHLORIDE 0.9% 500 ML IVPB SCH (03:00)
[2022-04-26] MEDS: NA CHLORIDE 0.9% 1,000 ML IV SCH (03:00)
[2022-04-26] MEDS ORDERED: VANCOMYCIN 500 MG/VIAL ONE (04:35)
[2022-04-26] MEDS ORDERED: VANCOMYCIN 1 GM/VIAL ONE (04:35)
[2022-04-26] MEDS ORDERED: NA CHLORIDE 0.9% 500 ML ONE (04:36)
[2022-04-26] MEDS: TRAMADOL HCL 50 MG TAB PO PRN (04:37)
[2022-04-26] MEDS ORDERED: SMZ./TMP. 800/160 MG TABLET PO SCH (09:00)
[2022-04-26 12:19] VITALS: BP 148/76; TEMP 98.5
--- NOTE | 2022-04-26 15:45 | P.DS ---
Admission Date: 04/25/22 Discharge Date: 04/26/22 Disposition: ROUTINE DISCHARGE Discharge Condition: GOOD Reason for Admission: BURNING AT URINATION AND PENILE PUS POCKET AT THE TIP - Problems (1) UTI (urinary tract infection) Status: Acute (2) H/O knee surgery Status: Acute (3) Diabetes mellitus Onset Date: 10/31/14 Status: Chronic (4) Controlled drug dependence Status: Chronic Brief History of Present Illness: FRANCISCO IS A DIABETIC WHO IS BED BOUND FROM KNEE SURGERY COMPLICATION WHO IS POSSIBLY ADDICTED TO NARCOTICS AND KLONOPIN COMES WITH ABOVE SS. HE LOOKS COMFORTABLE TO ME AT ER VISIT. HE LATER ASKED NURSE TO CALL ME FOR KLONOPIN AND NARCOTICS. HE WAS ON KLONOPIN BEFORE. I QUIT GIVING HIM THAT HE ABUSED IT. HE WAS ASKED TO GO TO PSYCHIATRIST. SAME FOR NARCOTICS. HE GOES TO PAIN DOCTOR. HE IS NOT ABLE TO BATHE OR CLEAN WELL. Hospital Course: LINN IS DOING GREAT. HE DOES NOT HAVE PAIN ANY LONGER. HE WILL TAKE BACTRIM DS THE PENILE LESION LOOKS LIKE MRSA IN ORIGIN. Vital Signs/Physical Exam: Temp Pulse Resp BP Pulse Ox 98.5 F 95 H 16 148/76 H 98 04/26/22 12:00 04/26/22 12:00 04/26/22 12:00 04/26/22 12:00 04/26/22 12:00 General: In no apparent distress, Oriented x3, Obese HEENT: Atraumatic, PERRLA, EOMI Neck: Supple, JVD not distended Respiratory: Clear to auscultation bilaterally, Normal air movement Cardiovascular: Regular rate/rhythm, Normal S1 S2 Gastrointestinal: Normal bowel sounds, No tenderness Musculoskeletal: No tenderness, Contractures Integumentary: No rashes Neurological: Normal speech, Normal tone, Normal affect Lymphatics: No axilla or inguinal lymphadenopathy Laboratory Data at Discharge: WBC 9.1 K/uL (4.3-10.9) 04/25/22 05:07 Hgb 14.2 g/dL (13.6-17.9) 04/25/22 05:07 Hct 41.7 % (39.6-49.0) 04/25/22 05:07 Plt Count 446 K/uL (152-406) H 04/25/22 05:07 PT 11.4 SECONDS (9.5-12.5) 04/25/22 05:07 INR 1.04 04/25/22 05:07 APTT 35.1 SECONDS (24.3-36.9) 04/25/22 05:07 Sodium 136 mmol/L (136-145) 04/25/22 05:07 Potassium 3.8 mmol/L (3.5-5.1) 04/25/22 05:07 BUN 13 mg/dL (7-18) 04/25/22 05:07 Creatinine 0.95 mg/dL (0.55-1.3) 04/25/22 05:07 Glucose 152 mg/dL (74-106) H 04/25/22 05:07 Total Bilirubin 0.7 mg/dL (0.2-1.0) 04/25/22 05:07 AST 13 U/L (15-37) L 04/25/22 05:07 ALT 27 U/L (12-78) 04/25/22 05:07 Alkaline Phosphatase 248 U/L (45-117) H 04/25/22 05:07 Home Medications: Tizanidine HCl [Zanaflex] 4 mg PO DAILY 03/11/21 hydrOXYzine HCL [Atarax*] 25 mg PO BID 03/11/21 Docusate [Colace Cap*] 100 mg PO DAILY #20 cap 03/13/21 Metoprolol Tartrate [Lopressor*] 50 mg PO BID #60 tab 03/13/21 Nystatin Powder [Mycostatin (Powder)*] 1 appl TOP BID #1 btl 03/13/21 Hydromorphone HCl [Dilaudid] 4 mg PO TID 12/03/21 clonazePAM [Klonopin Rapdis Tab] 0.25 mg PO DAILY PRN #30 tab.rapdis 12/04/21 Smz./Tmp. [Bactrim Ds 800 MG/160 MG*] 1 tab PO BID #20 tab 04/26/22 New Medications: Smz./Tmp. [Bactrim Ds 800 MG/160 MG*] 1 tab PO BID #20 tab Followup: Isai Snow MD [ACTIVE - CAN ADMIT] - Unknown,U [Primary Care Provider] -
--- OUTSIDE RECORDS SUMMARY | 2022-05-02 04:31 | XMS REPORT | Continuity of Care Document ---
:1950 Author Organization [facility] t Address [address] [place] [address] [place] [id number] Care Team Providers Name Role Phone DIOGENES [...] Policy Number Effective Date Expiration Date S [facility] MEDICARE PART A [id number] 2007 \\T\\ B 00:00:00 [employer] INDEMNITY [id number] 2016 00:00:00 MEDICARE PART A [id number] 2014 \\T\\ B - MEDICARE 00:00:00 INDEMNITY/TRADITIO [id number] NAL CHOICE - [employer] 00:00:00 Problems Condition [...] rs LFTs LFTs 2-05 ity of 00:00: [place] 00 Medical Branch Cellulitis Cellulitis Disease Active U nivers 2-04 ity of 00:00: Medical Branch Rash Rash Disease Active 2019- Univers 1-09 ity of 00:00: [place] 00 Medical Branch Allergies, Adverse Reactions, Alerts Allergy Allergy Status Severity Reaction(s) Onset Inactive Treating Comm ents Source Name Type Date Date Clinician [place] Prop[facility] Active Rash 2020- Univers ty to [...] INGREDI 3-16 ity of 00:00: [place] 00 [facility] Branch GLIMEPIR DRUG Active Hives Univers EFREN INGREDI 3-16 ity of 00:00: [place] [address] Medical Branch METFORMI DRUG Active ITCHING Univers N INGREDI 3-16 ity of 00:00: [place] [address] Medical Branch Social History Social Habit Start Date Stop Date Quantity Comments Source Exposure to Not sure University of SARS-CoV-2 [place] [facility] (event) Branch History of Chews Tobacco University of tobacco use [facility] History [facility] 2020-11-17 2020-11-17 5 University o f Financial 00:00:00 00:00:00 [facility] Branch History [facility] Food 2020-11-17 2020-11-17 1 Univers ity of Worry 00:00:00 00:00:00 [facility] History [facility] Food 2020-11-17 2020-11-17 1 Univers ity of Scarcity 00:00:00 00:00:00 [facility] History [facility] 2020-11-17 2020-11-17 1 University o f Transport Med 00:00:00 00:00:00 [facility] al Branch History [facility] 2020-11-17 2020-11-17 1 University o f Transport Non-Med 00:00:00 00:00:00 [facility] edical Branch Education 2020-11-16 2020-11-16 21 [place] of 00:00:00 00:00:00 [facility] Alcohol intake 2020-11-16 2020-11-16 Ex-drinker [place] of 00:00:00 00:00:00 (finding) [facility] Tobacco use and 2020-08-21 2020-08-21 Former user Universi ty of exposure 00:00:00 00:00:00 [facility] Tobacco Comment 2020-08-21 2020-08-21 quit 10 years Univer sity of 00:00:00 00:00:00 ago, started in [place] Med ical 2nd year of Branch college (~40 years) Alcohol Comment 2020-08-21 2020-08-21 Used to have 2-3 Uni versity of 00:00:00 00:00:00 six-packs of [place] Medica l beer daily x 20 Branch years, quit 2005 History [facility] 2020-08-21 2020-08-21 99 University o f Alcohol Frequency 00:00:00 00:00:00 [place] M edical Branch History [facility] 2020-08-21 2020-08-21 99 [place] o f Alcohol Std 00:00:00 00:00:00 [place] Medical Drinks Branch History [facility] 2020-08-21 2020-08-21 99 [place] o f Alcohol Binge 00:00:00 00:00:00 [facility] al Branch Sex [birth year] Universit y of 00:00:00 00:00:00 [facility] Smoking Status Start Date Stop Date Source Never smoker [facility] Medications Ordered Filled Start Stop Current Ordering [...] 0845, Until Discontinu ed, Routine amLODIPine Yes [id number] 10mg Take 1 Univers 10 mg 3-07 tablet by ity of tablet 00:00: mouth [place] 00 daily. Medical Branch clotrimazol 0 Yes [id number] Apply to Univers e 1 % 3-07 face/ears, ity of topical 00:00: armpits, [place] cream 00 pannus and Medical back/any Branch other rash twice a day fluocinonid 0 Yes [id number] Apply to Univers e 0.05 % 3-07 scalp ity of solution 00:00: twice a [place] 00 day Medical Branch triamcinolo 2020-0 Yes [id number] Apply to Univers ne 3-07 back, ity of acetonide 00:00: armpits [place] 0.1 % cream 00 and other Med ical affected Branch areas twice daily, please mix with clotrimazo le hydrOXYzine Yes [id number] 10mg Take 1 Univers 10 mg 3-07 tablet by ity of tablet 00:00: mouth 2 00 (two) Medical times Branch daily. amLODIPine 0 Yes [id number] 10mg Take 1 Univers 10 mg 3-07 tablet by ity of tablet 00:00: mouth 00 daily. Medical Branch clotrimazol 2020-0 Yes [id number] Apply to Univers e 1 % 3-07 face/ears, ity of topical 00:00: armpits, [place] cream 00 pannus and Medical back/any Branch other rash twice a day fluocinonid 2020-0 Yes [id number] Apply to Univers e 0.05 % 3-07 scalp ity of solution 00:00: twice a day Medical Branch triamcinolo 0 Yes [id number] Apply to Univers ne 3-07 back, ity of acetonide 00:00: armpits [place] 0.1 % cream 00 and other Med ical affected Branch areas twice daily, please mix with clotrimazo le hydrOXYzine Yes [id number] 10mg Take 1 Univers 10 mg 3-07 tablet by ity of tablet 00:00: mouth 2 (two) Medical times Branch daily. amLODIPine Yes [id number] 10mg Take 1 Univers 10 mg 3-07 tablet by ity of tablet 00:00: mouth 00 daily. Medical Branch clotrimazol 0 Yes [id number] Apply to Univers e 1 % 3-07 face/ears, ity of topical 00:00: armpits, [place] cream 00 pannus and Medical back/any Branch other rash twice a day fluocinonid 2020-0 Yes [id number] Apply to Univers e 0.05 % 3-07 scalp ity of solution 00:00: twice a [place] 00 day Medical Branch triamcinolo 2020-0 Yes [id number] Apply to Univers ne 3-07 back, ity of acetonide 00:00: armpits [place] 0.1 % cream 00 and other Med ical affected Branch areas twice daily, please mix with clotrimazo le hydrOXYzine Yes [id number] 10mg Take 1 Univers 10 mg 3-07 tablet by ity of tablet 00:00: mouth 2 [place] 00 (two) Medical times Branch daily. amLODIPine Yes [id number] 10mg Take 1 Univers 10 mg 3-07 tablet by ity of tablet 00:00: mouth [place] 00 daily. Medical Branch clotrimazol Yes [id number] Apply to Univers e 1 % 3-07 face/ears, ity of topical 00:00: armpits, [place] cream 00 pannus and Medical back/any Branch other rash twice a day fluocinonid Yes [id number] Apply to Univers e 0.05 % 12-17 scalp ity of solution 00:00: twice a [place] 00 day Medical Branch triamcinolo Yes [id number] Apply to Univers ne 3-07 back, ity of acetonide 00:00: armpits [place] 0.1 % cream 00 and other Med ical affected Branch areas twice daily, please mix with clotrimazo le hydrOXYzine Yes [id number] 10mg Take 1 Univers 10 mg 3-07 tablet by ity of tablet 00:00: mouth 2 [place] 00 (two) Medical times Branch daily. cephALEXin 2020-2020- No [id number] 500mg Take 1 Univers 500 mg 3-04 14- capsule by ity of capsule 00:00: 05:59 mouth [place] 00 :00 every 6 Medical (six) Branch hours for 3 days. cephALEXin 2020-0 2020- No [id number] 500mg Take 1 Univers 500 mg 3-04 14-11 capsule by ity of capsule 00:00: 05:59 mouth [place] 00 :00 every 6 Medical (six) Branch hours for 3 days. hydrOXYzine 2020-0 2020- No [id number] 10mg Take 1 Univers 10 mg 3-04 [...] IV [place] 500 mL 00 :00 Piggyback, [facility] ONCE, 1 Branch dose, Fri12/15/20 at 1000, STAT HYDROmorpho Yes 4mg 4 mg, Unive rs ne 12-15 Oral, BID, ity of (DILAUDID) 15:30: First dose [place] tablet 4 mg 00 (after Medica l last Branch modificati on) on Fri12/15/20 at 0930, Until Discontinu ed, Routine amLODIPine 2020- No [id number] 10mg Take 1 Univers 10 mg 12-15 tablet by ity of tablet 00:00: 00:00 mouth [place] 00 :00 daily. Medical Branch HYDROmorpho No 1mg 1 mg, Univ ers ne 12-14 Oral, ity of (DILAUDID) 17:35: 15:18 Q6HPRN, [place] tablet 1 mg 30 :06 Starting Medi jose c [facility] 12/14/20 Branch at 1135, Until Fri12/15/20 at 0918, Routine, Pain (scale 7-10) hydrOXYzine Yes 10mg 10 mg, Univ ers (ATARAX) 12-14 Oral, BID, ity o f tablet 10 17:30: First dose [place] mg 00 on [facility] Medical 12/14/20 at Branch 1130, Until Discontinu ed, Routine lisinopriL Yes 5mg 5 mg, Univer s (PRINIVIL,Z 12-14 Oral, ity of ESTRIL) 17:30: DAILY, [place] tablet 5 mg 00 First dose Me dical on [facility] Branch 12/14/20 at 1130, Until Discontinu ed, Routine triamcinolo 2020- No [id number] Apply to [facility] ne 12-14 back, ity of acetonide 00:00: 00:00 armpits [place] 0.1 % cream 00 :00 and other Med ical affected Branch areas twice daily, please mix with clotrimazo le clotrimazol 2020- No [id number] Apply to Univers e 1 % 12-14 face/ears, ity of topical 00:00: 00:00 armpits, [place] cream 00 :00 pannus and Medical back/any Branch other rash twice a day fluocinonid 2020- No [id number] Apply to Univers e 0.05 % 12-14 scalp ity of solution 00:00: 00:00 twice a [place] 00 :00 day Medical Branch hydrOXYzine 2020- No [id number] 10mg Take 1 Univers 10 mg 12-14 [...] mg 00 :00 dose, [facility] 12/12/20 at Branch 2145, Routine insulin Yes 15U 15 Units, [facility] [place] [facility] rs glargine 12-12 Subcutaneo ity o f (LANTUS 15:00: us, DAILY, [place] U-100) 00 First dose Medical injection on [facility] 15 Units 12/12/20 at 0900, Until Discontinu ed hydrOXYzine 2020- No 10mg 10 mg, Uni vers (ATARAX) 12-12 03-02 Oral, ity of tablet 10 08:15: 07:33 ONCE, 1 [place] mg 00 :00 dose, [facility] 12/12/20 at Branch 0215, Routine mirtazapine Yes 7.5mg 7.5 mg, Un toi (REMERON) 3-02 Oral, QHS, ity of tablet 7.5 03:00: First dose [place] mg 00 on [facility] 12/11/20 at Branch 2100, Until Discontinu ed, Routine venlafaxine Yes 300mg 300 mg, Un toi XR (EFFEXOR 3-02 Oral, QHS, it y of XR) 24 hr 03:00: First dose [place] capsule 300 00 on [facility] Medica l mg 12/11/20 at Branch [...] of 1,000 mg in 19:00: 17:35 Piggyback, [place] NaCl 0.9% 00 :26 Q8H ABX, Medica [...] ed, Routine insulin Yes 5U 5 Units, [facility] s lispro 12-11 Subcutaneo ity of (human) 18:00: us, TID [place] (HumaLOG 00 MEALS, Medical U-100) First dose Branch injection 5 on Fri Units 12/11/20 at 1200, Until Discontinu ed Polyethylen Yes 17g 17 g, [facility] rs e Glycol 12-11 Oral, ity of 3350 17:47: L12MEER, [place] (MIRALAX) 05 Starting Medica l powder [...]
Duration of therapy: 72 hours sennosides- Yes [id number] 1{tbl} Take 1 Univers docusate 2- tablet by ity of sodium 00:00: mouth 2 [place] 8.6-50 mg 00 (two) Medical per tablet times Branch daily. hydrocortis Yes [id number] Apply to [facility] one 2.5 % 11-21 affected ity of cream 00:00: area(s) 2 [place] 00 (two) Medical times Branch daily. blood sugar Yes [id number] Use to [facility] diagnostic 11-21 check ity of (FREESTYLE 00:00: blood [place] LITE 00 glucose Medical STRIPS) 4-5 times Branch strip daily. Polyethylen Yes [id number] 17g Take 1 Univers e Glycol 11-21 Packet by ity of 3350 17 00:00: mouth [place] gram powder 00 every 24 Medi jose c (twenty-fo Branch ur) hours as needed for Constipati on. sennosides- Yes [id number] 1{tbl} Take 1 Univers docusate 2-09 tablet by ity of sodium 00:00: mouth 2 [place] 8.6-50 mg 00 (two) Medical per tablet times Branch daily. hydrocortis 2020-0 Yes [id number] Apply to Univers one 2.5 % 2-09 affected ity of cream 00:00: area(s) 2 [place] 00 (two) Medical times Branch daily. blood sugar 2020-0 Yes [id number] Use to Univers diagnostic 11-21 check ity of (FREESTYLE 00:00: blood [place] LITE 00 glucose Medical STRIPS) 4-5 times Branch strip daily. Polyethylen 2020-0 Yes [id number] 17g Take 1 Univers e Glycol 2-09 Packet by ity of 3350 17 00:00: mouth [place] gram powder 00 every 24 Medi jose c (twenty-fo Branch ur) hours as needed for Constipati on. sennosides- 0 Yes [id number] 1{tbl} Take 1 Univers docusate 2-09 tablet by ity of sodium 00:00: mouth 2 [place] 8.6-50 mg 00 (two) Medical per tablet times Branch daily. hydrocortis 2020- Yes [id number] Apply to Univers one 2.5 % 2-09 affected ity of cream 00:00: area(s) 2 [place] 00 (two) Medical times Branch daily. blood sugar 2020- Yes [id number] Use to [facility] diagnostic 11-21 check ity of (FREESTYLE 00:00: blood [place] LITE 00 glucose Medical STRIPS) 4-5 times Branch strip daily. Polyethylen 2020-0 Yes [id number] 17g Take 1 Univers e Glycol 2-09 Packet by ity of 3350 17 00:00: mouth [place] gram powder 00 every 24 Medi jose c (twenty-fo Branch ur) hours as needed for Constipati on. sennosides- 2020-0 Yes [id number] 1{tbl} Take 1 Univers docusate 2-09 tablet by ity of sodium 00:00: mouth 2 [place] 8.6-50 mg 00 (two) Medical per tablet times Branch daily. hydrocortis 2020-0 Yes [id number] Apply to Univers one 2.5 % 2-09 affected ity of cream 00:00: area(s) 2 [place] 00 (two) Medical times Branch daily. blood sugar Yes [id number] Use to [facility] diagnostic 11-21 check ity of (FREESTYLE 00:00: blood [place] LITE 00 glucose Medical STRIPS) 4-5 times Branch strip daily. Polyethylen Yes [id number] 17g Take 1 Univers e Glycol 11-21 Packet by ity of 3350 17 00:00: mouth [place] gram powder 00 every 24 Medi jose c (twenty-fo Branch ur) hours as needed for Constipati on. Insulin 2020- No [id number] 15U inject 15 Univers Glargine 11-21 Units ity of (LANTUS 00:00: 05:59 [place] the [place] SOLOSTAR 00 :00 skin every Medic al U-100 morning Branch INSULIN) for 30 100 unit/mL days. (3 mL) injection venlafaxine 2020- No [id number] 150mg Take 1 Univers XR 150 mg 11-21 capsule by ity of 24 hr 00:00: 05:59 mouth 3 [place] capsule 00 :00 (three) Medical times Branch daily for 30 days. Insulin 2020- No [id number] 15U inject 15 Univers Glargine 11-21 Units ity of (LANTUS 00:00: 05:59 [place] the [place] SOLOSTAR 00 :00 skin every Medic al U-100 morning Branch INSULIN) for 30 100 unit/mL days. (3 mL) injection venlafaxine 2020- No [id number] 150mg Take 1 Univers XR 150 mg 11-21 capsule by ity of 24 hr 00:00: 05:59 mouth 3 [place] capsule 00 :00 (three) Medical times Branch daily for 30 days. triamcinolo 2020- No [id number] Apply to [facility] ne 11-21 area(s) 2 ity of acetonide 00:00: 00:00 (two) [place] 0.1 % cream 00 :00 times Medical daily. Branch cephALEXin 2020- No [id number] 1000mg Take 2 Univers 500 mg 11-21 capsules ity of capsule 00:00: 00:00 by mouth 3 [place] 00 :00 (three) Medical times Branch daily. doxycycline 2020- No [id number] 100mg Take 1 Univers hyclate 100 11-21 capsule by i ty of mg capsule 00:00: 00:00 mouth [place] 00 :00 every 12 Medical (twelve) Branch hours. lactobacill 2020- No [id number] 1{tbl} Take 1 Univers us 11-21 tablet by ity of acidophilus 00:00: 00:00 mouth 2 [place] 25 million 00 :00 (two) Medical cell -100 times Branch mg captab daily. bisacodyL 2020- No [id number] 10mg Insert 1 Univers 10 mg 11-21 Suppositor ity of suppository 00:00: 00:00 y into [place] 00 :00 rectum at Medical bedtime as Branch needed for Constipati on. ALPRAZolam 2020- No [id number] .25mg Take 1 Univers (XANAX) 11-21 tablet by ity of 0.25 mg 00:00: 00:00 mouth 2 [place] tablet 00 :00 (two) Medical times Branch daily. hydrOXYzine 2020- No [id number] 20mg Take 2 Univers 10 mg 11-21 [...] (NOVOLOG 01:13: under the [facility] FLEXPEN SC) 36 skin. Medical Branch ALPRAZolam [...] 34 :00 Medical Branch hydrocortis 2019- Yes [id number] Apply to Univers one 2.5 % 1-11 affected ity of cream 00:00: area(s) 2 [place] 00 (two) Medical times Branch daily. hydrOXYzine 2019- Yes [id number] 20mg Take 2 Univers 10 mg 1-11 tablets by ity of tablet 00:00: mouth [place] 00 every 8 Medical (eight) Branch hours as needed for Itching or Anxiety. Polyethylen 2019- Yes [id number] 17g Take 1 Univers e Glycol 1-11 Packet by ity of 3350 17 00:00: mouth [place] gram powder 00 every 24 Medi jose c (twenty-fo Branch ur) hours as needed for Constipati on. hydrocortis 2019-10 Yes [id number] Apply to Univers one 2.5 % 1-11 affected ity of cream 00:00: area(s) 2 [place] 00 (two) Medical times Branch daily. hydrOXYzine 2019- Yes [id number] 20mg Take 2 Univers 10 mg 1-11 tablets by ity of tablet 00:00: mouth [place] 00 every 8 Medical (eight) Branch hours as needed for Itching or Anxiety. Polyethylen 2019- Yes [id number] 17g Take 1 Univers e Glycol 1-11 Packet by ity of 3350 17 00:00: mouth [place] gram powder 00 every 24 Medi jose c (twenty-fo Branch ur) hours as needed for Constipati on. hydrocortis 2019- Yes [id number] Apply to Univers one 2.5 % 1-11 affected ity of cream 00:00: area(s) 2 [place] 00 (two) Medical times Branch daily. hydrOXYzine 2019- Yes [id number] 20mg Take 2 Univers 10 mg 1-11 tablets by ity of tablet 00:00: mouth [place] 00 every 8 Medical (eight) Branch hours as needed for Itching or Anxiety. Polyethylen 2020- Yes [id number] 17g Take 1 Univers e Glycol 1-11 Packet by ity of 3350 17 00:00: mouth [place] gram powder 00 every 24 Medi jose c (twenty-fo Branch ur) hours as needed for Constipati on. hydrocortis 2019- Yes [id number] Apply to Univers one 2.5 % 1-11 affected ity of cream 00:00: area(s) 2 [place] (two) Medical times Branch daily. hydrOXYzine 2019- Yes [id number] 20mg Take 2 Univers 10 mg 1-11 tablets by ity of tablet 00:00: mouth [place] 00 every 8 Medical (eight) Branch hours as needed for Itching or Anxiety. Polyethylen 2019- Yes [id number] 17g Take 1 Univers e Glycol 1-11 Packet by ity of 3350 17 00:00: mouth [place] gram powder 00 every 24 Medi jose c (twenty- Branch ur) hours as needed for Constipati on. hydrocortis 2019- Yes [id number] Apply to Univers one 2.5 % 1-11 affected ity of cream 00:00: area(s) 2 [place] 00 (two) Medical times Branch daily. hydrOXYzine 2019- Yes [id number] 20mg Take 2 Univers 10 mg 1-11 tablets by ity of tablet 00:00: mouth [place] 00 every 8 Medical (eight) Branch hours as needed for Itching or Anxiety. Polyethylen 2020- Yes [id number] 17g Take 1 Univers e Glycol 1-11 Packet by ity of 3350 17 00:00: mouth [place] gram powder 00 every 24 Medi jose c (twenty-fo Branch ur) hours as needed for Constipati on. hydrocortis 2019- Yes [id number] Apply to Univers one 2.5 % 1-11 affected ity of cream 00:00: area(s) 2 [place] 00 (two) Medical times Branch daily. hydrOXYzine 2019- Yes [id number] 20mg Take 2 Univers 10 mg 1-11 tablets by ity of tablet 00:00: mouth [place] 00 every 8 Medical (eight) Branch hours as needed for Itching or Anxiety. Polyethylen 2020- Yes [id number] 17g Take 1 Univers e Glycol 1-11 Packet by ity of 3350 17 00:00: mouth [place] gram powder 00 every 24 Medi jose c (twenty-fo Branch ur) hours as needed for Constipati on. hydrocortis 2019-10 Yes [id number] Apply to Univers one 2.5 % 1-11 affected ity of cream 00:00: area(s) 2 [place] 00 (two) Medical times Branch daily. hydrOXYzine 2019-10 Yes [id number] 20mg Take 2 Univers 10 mg 1-11 tablets by ity of tablet 00:00: mouth [place] 00 every 8 Medical (eight) Branch hours as needed for Itching or Anxiety. Polyethylen 2019-10 Yes [id number] 17g Take 1 Univers e Glycol 1-11 Packet by ity of 3350 17 00:00: mouth [place] gram powder 00 every 24 Medi jose c (twenty-fo Branch ur) hours as needed for Constipati on. triamcinolo 2019-10 2020- No [id number] Apply to [facility] 10-23 area(s) 2 ity of acetonide 00:00: 05:59 (two) [place] 0.1 % cream 00 :00 times Medical daily for Branch 14 days. triamcinolo 2019-10 2020- No [id number] Apply to [facility] 10-23 area(s) 2 ity of acetonide 00:00: 05:59 (two) [place] 0.1 % cream 00 :00 times Medical daily for Branch 14 days. triamcinolo 2019-10 2020- No [id number] Apply to [facility] 10-23 area(s) 2 ity of acetonide 00:00: 05:59 (two) [place] 0.1 % cream 00 :00 times Medical daily for Branch 14 days. KCL 2019-10 2020- No 40meq 40 mEq, Univers (KLOR-CON -07 23- Oral, ONCE ity of M20) tablet 16:15: 16:23 NOW, 1 [place] 40 mEq 00 :00 dose, [facility] Medical 08/22/20 Branch at 1015, Routine HYDROmorpho 2019-10 Yes 1mg 1 mg, Unive rs ne 1- Oral, ity of (DILAUDID) 15:07: Q6HPRN, [place] tablet 1 mg 53 Starting Medi jose c [facility] Branch 08/22/20 at 0907, Until Discontinu ed, [...] acetonide 02:00: dose on [place] (TRIDERM) 00 Mon Medical 0.1 % cream 08/21/20 at Br anch 2000, Until Discontinu ed, Routine hydrOXYzine 2019-10 Yes 20mg 20 mg, Univ ers (ATARAX) 09 Oral, ity of tablet 20 17:39: Q8HPRN, [place] mg 12 Starting Medical [facility] Branch 08/21/20 at 1139, Until Discontinu ed, Routine, Itching, Anxiety sennosides- 2019-10 Yes 1{tbl} 1 tablet, Univers docusate 10-21 Oral, ity of sodium 15:00: DAILY, [place] (SENOKOT-S) 00 First dose Me dical 8.6-50 mg on [facility] Branch per tablet 08/21/20 at 1 [...] [place] capsule 150 00 on [facility] Medica l mg 08/21/20 at Branch [...] 25 59 :43 Starting Medica l mg [facility] 08/21/20 at 0656, Until [facility] 08/21/20 at 1139, Routine, Itching, Mild Rash, Congestion /Allergies , alternate with hydroxyzin e hydrOXYzine 2019-10- No 10mg 10 mg, Uni vers (ATARAX) 10-21 Oral, ity of tablet 10 10:20: 12:57 Q6HPRN, [place] mg 22 :12 Starting [facility] 08/21/20 at 0420, Until [facility] 08/21/20 at 0657, Routine, Itching, Anxiety Sliding 2019-10 Yes Subcutaneo Univ ers Scale 10-21 us, Q4H, ity of Insulin - 10:00: First dose [place] Aspart 00 (after Medical (NOVOLOG) + last Branch Fsbg modificati Testing on) on [facility] 08/21/20 at 0400, Until Discontinu ed, Routine lidocaine 5 2019-10- No Topical, U nivers % ointment 10-21 ONCE, 1 ity o f 09:30: 09:14 dose, [facility] 00 :00 08/21/20 at [facility] 0330, Branch Routine Polyethylen 2019-10 Yes 17g 17 g, [facility] rs e Glycol 10-21 Oral, ity of 3350 08:29: [id number], [place] (MIRALAX) Starting Medica l powder 17 g [facility] 08/21/20 at 0229, Until Discontinu ed, Routine, Constipati on lanolin 2019-10 Yes Topical, Univer s alcohol-mo- 10-21 PRN, ity of w.pet-ceres 08:26: Starting [place] (EUCERIN) 30 [facility] cream 08/21/20 at Branch 0226, Until Discontinu ed, Routine, Dermatitis /Rash ALPRAZolam 2019-10 Yes .25mg 0.25 mg, Un toi (XANAX) 10-21 Oral, ity of tablet 0.25 08:25: BIDPRN, [place] mg 41 Starting [facility] 08/21/20 at 0225, Until Discontinu ed, [...] hours. Branch blood sugar Yes Use to [employer] ers diagnostic 4-25 check ity of (FREESTYLE 00:00: blood [place] LITE 00 glucose Medical STRIPS) 4-5 times Branch strip daily. blood sugar Yes Use to [employer] ers diagnostic 4-25 check ity of (FREESTYLE 00:00: blood [place] LITE 00 glucose Medical STRIPS) 4-5 times Branch strip daily. blood sugar Yes Use to [employer] ers diagnostic 4-25 check ity of (FREESTYLE 00:00: blood [place] LITE 00 glucose Medical STRIPS) 4-5 times Branch strip daily. blood sugar Yes Use to [employer] ers diagnostic 4-25 check ity of (FREESTYLE 00:00: blood [place] LITE 00 glucose Medical STRIPS) 4-5 times Branch strip daily. blood sugar Yes Use to [employer] ers diagnostic 4-25 check ity of (FREESTYLE [...] 13:00:00 84 mm[Hg] Unive rsity of pressure [place] Medical Branch Heart rate 2021-08-22 13:00:00 103 /min [facility] of [facility] Respiratory rate 2021-08-22 13:00:00 18 /min Univ ersity of [place] [facility] Branch Oxygen saturation in 2021-08-22 13:00:00 95 /min University of Arterial blood by [facility] Pulse oximetry Branch Body temperature 2021-08-22 12:22:00 36.72 [place] [facility] [place] [facility] ersity of [place] Medical Branch Systolic blood 2020-12-17 18:35:00 139 mm[Hg] Univer sity of pressure [place] [facility] Diastolic blood 2020-12-17 18:35:00 87 mm[Hg] Unive rsity of pressure [place] Medical Branch Heart rate 2020-12-17 18:35:00 110 /min [facility] Body temperature 2020-12-17 18:35:00 37.72 [place] [facility] [place] [facility] Respiratory rate 2020-12-17 18:35:00 18 /min Univ [facility] [place] [facility] Oxygen saturation in 2020-12-17 18:35:00 93 /min University of Arterial blood by [place] [employer] [facility] Pulse oximetry Branch Body height 2020-12-12 08:21:00 180.3 cm [facility] Body weight 2020-12-12 08:21:00 103.42 kg [facility] BMI 2020-12-12 08:21:00 31.80 kg/m2 [facility] Systolic blood 2020-12-17 18:35:00 139 mm[Hg] Univer sity of pressure [place] [facility] Diastolic blood 2020-12-17 18:35:00 87 mm[Hg] Unive rsity of pressure [place] [facility] Heart rate 2020-12-17 18:35:00 110 /min [facility] [place] [facility] Body temperature 2020-12-17 18:35:00 37.72 [place] Univ [facility] [place] [facility] Respiratory rate 2020-12-17 18:35:00 18 /min Univ [facility] [place] [facility] Oxygen saturation in 2020-12-17 18:35:00 93 /min University of Arterial blood by [place] [employer] jose c Pulse oximetry Branch Body height 2020-12-12 08:21:00 180.3 cm [facility] [place] [facility] [place] Body weight 2020-12-12 08:21:00 103.42 kg [facility] [place] [facility] BMI 2020-12-12 08:21:00 31.80 kg/m2 [...] /min University of Arterial blood by [place] [employer] jose c Pulse oximetry Branch Body weight [...] Branch Body temperature 2020-08-23 19:27:00 36 [place] [facility] Respiratory rate 2020-08-23 19:27:00 18 /min [facility] Oxygen saturation in 2020-08-23 19:27:00 93 /min University Arterial blood by [facility] Pulse oximetry [place] Body weight 2020-08-21 07:20:00 104.962 kg [facility] BMI 2020-08-21 07:20:00 32.27 kg/m2 [facility] Procedures Procedure Date / Time Performing Clinician Source Performed POCT GLUCOSE (AUTOMATED) 2020-12-17 15:42:00 Harrison[facility] BAS[facility] METABOLIC PANEL 2020-12-17 10:45:00 Paul Bean [facility] (NA, K, CL, CO2, GLUCOSE, [facility] BUN, CREATININE, CA) CBC WITH DIFF 2020-12-17 10:45:00 Paul Bean [facility] POCT GLUCOSE (AUTOMATED) 2020-12-17 02:36:00 HarrisonFavio davisonal G Uni [facility] XR TIBIA FIBULA 2 VW LEFT 2020-12-16 23:38:00 Paul Bean [facility] POCT GLUCOSE (AUTOMATED) 2020-12-16 23:20:00 Harrison, Premal G Uni [facility] POCT GLUCOSE (AUTOMATED) 2020-12-16 20:10:00 Harrison, Premal [facility] POCT GLUCOSE (AUTOMATED) 2020-12-16 14:43:00 Harrison, Premal G Uni [facility] BASIC METABOLIC PANEL 2020-12-16 13:51:00 Paul Bean [facility] (NA, K, CL, CO2, GLUCOSE, [facility] BUN, CREATININE, CA) CBC WITH DIFF 2020-12-16 13:51:00 Paul Bean [facility] POCT GLUCOSE (AUTOMATED) 2020-12-16 04:00:00 Harrison, Premal [facility] POCT GLUCOSE (AUTOMATED) 2020-12-16 00:14:00 Harrison, Premal G Uni versity of [facility] CT CHEST PULMONARY 2020-12-15 22:29:38 Paul Bean [facility] ANGIOGRAM [facility] POCT GLUCOSE (AUTOMATED) 2020-12-15 19:26:00 Harrison, Premal G Uni versity of [facility] POCT GLUCOSE (AUTOMATED) 2020-12-15 15:13:00 Harrison, Premal G Uni versity of [facility] HB ECG ROUTINE & RHYTHM 2020-12-15 14:25:27 Cailin [facility]o [facility] MAGNESIUM 2020-12-15 12:01:00 Paul Bean Sivakumar [facility] BASIC METABOLIC PANEL 2020-12-15 12:01:00 Paul Bean [facility] (NA, K, CL, CO2, GLUCOSE, [facility] BUN, CREATININE, CA) CBC WITH DIFF 2020-12-15 12:01:00 Paul Bean [facility] POCT GLUCOSE (AUTOMATED) 2020-12-15 03:57:00 Harrison, Premal G Uni versity of [facility] POCT GLUCOSE (AUTOMATED) 2020-12-14 23:31:00 Harrison, Premal G Uni versity of [facility] POCT GLUCOSE (AUTOMATED) 2020-12-14 19:08:00 Harrison, Premal G Uni versity of [facility] POCT GLUCOSE (AUTOMATED) 2020-12-14 15:11:00 Harrison, Premal G Uni versity of [facility] POCT GLUCOSE (AUTOMATED) 2020-12-14 02:36:00 Harrison, Premal G Uni versity of [facility] POCT GLUCOSE (AUTOMATED) 2020-12-13 23:32:00 Harrison, Premal G Uni versity of [facility] POCT GLUCOSE (AUTOMATED) 2020-12-13 18:08:00 Harrison, Premal G Uni versity of [facility] BASIC METABOLIC PANEL 2020-12-13 15:39:00 Paul Bean [facility] (NA, K, CL, CO2, GLUCOSE, [facility] BUN, CREATININE, CA) CBC WITH DIFF 2020-12-13 15:39:00 Paul Bean Sivakumar [facility] POCT GLUCOSE (AUTOMATED) 2020-12-13 14:06:00 Harrison, Premal [facility] POCT GLUCOSE (AUTOMATED) 2020-12-13 03:07:00 Harrison, Premal [facility] POCT GLUCOSE (AUTOMATED) 2020-12-12 23:52:00 Harrison, Premal [facility] POCT GLUCOSE (AUTOMATED) 2020-12-12 20:28:00 Harrison, Premal [facility] POCT GLUCOSE (AUTOMATED) 2020-12-12 19:14:00 Harrison, Premal [facility] POCT GLUCOSE (AUTOMATED) 2020-12-12 14:33:00 Harrison, Premal [facility] MAGNESIUM 2020-12-12 08:58:00 Darnell Beanaham Sivakumar [facility] BASIC METABOLIC PANEL 2020-12-12 08:58:00 [facility] (NA, K, CL, CO2, GLUCOSE, [facility] BUN, CREATININE, CA) CBC WITH DIFF 2020-12-12 08:58:00 Paul Bean Sivakumar [facility] US ABDOMEN LIMITED 2020-12-12 06:32:26 [facility] POCT GLUCOSE (AUTOMATED) 2020-12-12 03:40:00 Harrison, Premal G Uni [facility] POCT GLUCOSE (AUTOMATED) 2020-12-12 00:06:00 Harrison, Premal G Uni [facility] XR HIPS 3 VW LEFT 2020-12-11 20:20:00 [facility]as [facility] HB ECG ROUTINE & RHYTHM 2020-12-11 20:04:06 Cailin Romo [facility] VITAMIN B6, PLASMA 2020-12-11 19:17:00 [facility] POCT GLUCOSE (AUTOMATED) 2020-12-11 19:06:00 Rene Harrison [facility] CREATINE KINASE 2020-12-11 18:22:00 Clarisse Hannon [facility] VITAMIN B12, LEVEL 2020-12-11 18:22:00 Paul Bean [facility] FOLATE 2020-12-11 18:22:00 [facility] THYROID STIMULATING 2020-12-11 18:22:00 Cailin Romo [facility] HORMONE [facility] PROCALCITONIN 2020-12-11 18:22:00 Vikas [facility] VITAMIN B1 (THIAMINE), 2020-12-11 18:22:00 Paul Bean Sivakumar [facility] WHOLE BLOOD [facility] HEAD WO CONTRAST 2020-12-11 14:07:35 Sweetie Stout [facility] URINALYSIS 2020-12-11 13:44:00 Singer [facility] URINE CULTURE 2020-12-11 13:44:00 Singer [facility] COVID-19 (ID NOW RAPID 2020-12-11 12:31:00 Paco Lacey [facility] TESTING) [facility] LAB ONLY COVID 2020-12-11 12:31:00 Singer Paco [facility] XR CHEST 1 VW 2020-12-11 12:07:24 Singer [facility] BLOOD CULTURE SCREEN 2020-12-11 12:02:00 Paco Lacey [facility] MAGNESIUM 2020-12-11 12:02:00 Paul Bean [facility] FERRITIN SERUM 2020-12-11 12:02:00 Darnell Beanaham Sivakumar [facility] COMP. METABOLIC PANEL 2020-12-11 12:02:00 Paco Lacey [facility] ([id number]) [facility] Branch CBC WITH DIFF 2020-12-11 12:02:00 Singer [facility] LACTIC ACID WHOLE BLOOD 2020-12-11 12:02:00 Paco Lacey [facility] BLOOD CULTURE SCREEN 2020-12-11 11:42:00 Paco Lacey [facility] EMERGENCY SERVICES 2020-12-11 06:01:00 Doctor aTbitha [facility] AGREEMENTS AND [place] [facility] AUTHORIZATIONS HOSPITAL ADMISSION 2020-12-11 06:01:00 Doctor Tabitha [facility] Name [facility] HOME HEALTH - OTHER 2020-11-11 06:01:00 Doctor Tabitha [facility] [place] [facility] HEALTH - OTHER 2020-10-30 06:01:00 Doctor Tabitha [facility] Name [facility] EXTERNAL PROVIDER RECORDS 2020-09-01 06:01:00 Doctor Tabitha [facility] POCT GLUCOSE (AUTOMATED) 2020-08-23 18:09:00 Kelly Washington [facility] POCT GLUCOSE (AUTOMATED) 2020-08-23 14:14:00 Kelly Washington [facility] MAGNESIUM 2020-08-23 11:18:00 Minerva, [facility] BASIC METABOLIC PANEL 2020-08-23 11:18:00 [facility] (NA, K, CL, CO2, GLUCOSE, Medica l Branch BUN, CREATININE, CA) CBC WITH DIFF 2020-08-23 11:18:00 [facility] POCT GLUCOSE (AUTOMATED) 2020-08-23 10:21:00 Kelly Washingtonity [facility] POCT GLUCOSE (AUTOMATED) 2020-08-23 05:55:00 Kelly Washingtonity [facility] POCT GLUCOSE (AUTOMATED) 2020-08-23 03:00:00 Kelly [facility]ity [facility] POCT GLUCOSE (AUTOMATED) 2020-08-22 23:38:00 Kelly Washington versity [facility] POCT GLUCOSE (AUTOMATED) 2020-08-22 19:04:00 Kelly Washington [facility] POCT GLUCOSE (AUTOMATED) 2020-08-22 13:49:00 Kelly Washington versity [facility] MAGNESIUM 2020-08-22 10:10:00 Ramya [facility] HEPATIC FUNCTION PANEL 2020-08-22 10:10:00 Jill Aguila Elias [facility] ([id number]) (ALB,T.PRO,BILI Medical Branch T,BU/BC,ALT,AST,ALK PHOS) BASIC METABOLIC PANEL 2020-08-22 10:10:00 Minerva, [facility] (NA, K, CL, CO2, GLUCOSE, Medica l Branch BUN, CREATININE, CA) LIPID PANEL ([id number])(TOTAL 2020-08-22 10:10:00 Minerva, [facility] TRIGLYCERID[facility], HDL) CBC WITH DIFF 2020-08-22 10:10:00 [facility] POCT GLUCOSE (AUTOMATED) 2020-08-22 10:10:00 Kelly Washington [facility] POCT GLUCOSE (AUTOMATED) 2020-08-22 07:13:00 Kelly Washington [facility] POCT GLUCOSE (AUTOMATED) 2020-08-22 02:24:00 Kelly Washington [facility] POCT GLUCOSE (AUTOMATED) 2020-08-21 23:40:00 Kelly Washington [facility] POCT GLUCOSE (AUTOMATED) 2020-08-21 18:10:00 Kelly Washington [facility] POCT GLUCOSE (AUTOMATED) 2020-08-21 13:39:00 Kelly Washington [facility] ETHANOL 2020-08-21 12:35:00 Jos Quiroz [facility] ACTIVATED PARTIAL 2020-08-21 12:35:00 Padmini [facility] THRMPLAS [facility] GALV ONLY - SYPHILIS 2020-08-21 12:35:00 Padmini [facility] IGG/IGM [facility] LACTATE DEHYDROGENASE 2020-08-21 10:09:00 Minerva, [facility] GALV/CLC ONLY - URINE 2020-08-21 10:09:00 Jos Quiroz [facility] DRUG (IMMUNOASSAY) - 4 ER Medica l Branch PANEL URINALYSIS 2020-08-21 10:09:00 Ramya, [facility] URINE CULTURE 2020-08-21 10:09:00 Ramya, [facility] PROCALCITONIN 2020-08-21 10:09:00 Ramya, [facility] POCT GLUCOSE (AUTOMATED) 2020-08-21 09:41:00 Kelly Washington [facility] PROTHROMBIN TIME / INR 2020-08-21 08:32:00 Ramya, [facility] ACTIVATED PARTIAL 2020-08-21 08:32:00 Minerva, [facility] THRMPLAS [facility] C-REACTIVE PROTEIN 2020-08-21 08:31:00 Minerva, [facility] HEPATIC FUNCTION PANEL 2020-08-21 08:31:00 Ramya, [facility] ([id number]) (ALB,T.PRO,BILI Medical [place] T,BU/BC,ALT,AST,ALK PHOS) BASIC METABOLIC PANEL 2020-08-21 08:31:00 Minerva, [facility] (NA, K, CL, CO2, GLUCOSE, [facility] [place] BUN, CREATININE, CA) SEDIMENTATION RATE 2020-08-21 08:31:00 Minerva, [facility] CBC WITH DIFF 2020-08-21 08:31:00 Minerva, [facility] GLYCOSYLATED HEMOGLOBIN 2020-08-21 08:31:00 Minerva, [facility] (A1C) [facility] HIV 1/2 AG-AB WITH REFLEX 2020-08-21 08:31:00 [facility] (ID NOW RAPID 2020-08-21 08:20:00 Minerva, [facility] TESTING) Medical Branch LAB ONLY COVID 2020-08-21 08:20:00 Ramya, H[facility] Encounters Start End Encounter Admission Attending Care Care Encounter Source Date/Time Date/Time Type Type Clinicians Facility Department ID 2020-08-21 Inpatient Shayy WASHINGTON [facility] [id number] Univers 01:07:00 KELLY cantu [facility] 2021-08-22 2021-08-22 Emergency [id number] Univers 06:21:00 08:02:00 SWEETIE cantu [facility] 2021-08-22 2021-08-22 [facility] [id number] Univers 06:21:00 08:02:00 Sweetie LOTT [id number] i [place] [id number] [facility] 084 [place] 2021-08-09 2021-08-09 Outpatient ZAKI, [facility] [id number] [facility] 10:27:03 10:27:03 ADRIANA lopez of Medicin e 2020-12-28 2020-12-28 Telephone [facility] [id number] 00:00:00 00:00:00 Calvin H PRIMARY [id number] CARE 4.2.7.2.686 [place] [id number] 220 2020-12-28 2020-12-28 Telephone [facility] 1.2.840.114 [id number] Univers 00:00:00 00:00:00 Calvin H PRIMARY [id number] it y of CARE 4.2.7.2.686 [facility] [id number] Md dical 220 Branch 2020-12-19 2020-12-19 Transition Tuan Peters 1.2.840.114 [id number] 00:00:00 00:00:00 of Care Ruchi Braswell [id number] [place] 4.2.7.2.686 [id number] 2020-12-19 2020-12-19 Transition Tuan Peters 1.2.840.114 [id number] Univers 00:00:00 00:00:00 of Care Ruchi Braswell [id number] it y of [place] [id number] [facility] 403 Branch 2020-12-11 2020-12-17 [facility] Paco Lacey 1.2.840.1 [id number] 05:11:00 16:00:00 Encounter Rene Harrison [place] [id number] [facility] 4.2.7.2.686 [id number] [facility] 2020-12-11 2020-12-17 [facility] 1.2.840.1 [id number] [facility] 05:11:00 16:00:00 Encounter Rene Harrison Monique [id number] ity of [facility] 4.2.7.2.686 [place] [id number] [facility] 096 [place] 2020-12-11 2020-12-11 Emergency X [facility] ERT [id number] Univers 05:11:00 05:11:00 [facility] 2020-11-16 2020-11-16 Emergency X [facility] ERT [id number] Univers 09:31:00 09:31:00 [facility] 2020-11-11 2020-11-11 Orders Doctor CUI 1.2.840.114 [id number] 00:00:00 00:00:00 Only Unassigned, MONIQUE 350.1.13.10 [place] [facility] 4.2.7.2.686 [id number] 2020-11-11 2020-11-11 Orders Doctor CUI 1.2.840.114 [id number] Univers 00:00:00 00:00:00 Only Unassigned, MONIQUE 350.1.13.10 ity of [place] [facility] 4.2.7.2.686 Jeff as [id number] [facility] 009 Branch 2020-11-07 2020-11-07 Telephone Wilder [facility] [id number] 00:00:00 00:00:00 Angi Lott 350.1.13.10 [place] 4.2.7.2.686 Professio [id number] [facility] 2020-11-07 2020-11-07 Telephone Hdz [facility] [id number] [facility] 00:00:00 00:00:00 Sendil DiegoAshely Lott 350.1.13.10 ity of [place] Profess[place] [id number] [place] [id number] [facility] 2020-10-30 2020-10-30 Orders Doctor BASILIA 1.2.840.114 [id number] 00:00:00 00:00:00 Only Unassigned, MONIQUE 350.1.13.10 [place] [facility] 4.2.7.2.686 [id number] Formerly named [facility] 2020-10-30 2020-10-30 Orders Doctor BASILIA 1.2.840.114 [id number] Univers 00:00:00 00:00:00 Only Unassigned, MONIQUE 350.1.13.10 ity of [place] [facility] 4.2.7.2.686 Jeff as [id number] [address] 2020-09-26 2020-09-26 Telephone [facility] 1.2.840.114 [id number] 00:00:00 00:00:00 [facility] 350.1.13.10 CLINICS 4.2.7.2.686 [id number] [facility] 2020-09-26 2020-09-26 Telephone [facility] 1.2.840.114 [id number] Univers 00:00:00 00:00:00 [facility] 350.1.13.10 i ty of CL[place] [id number] [address] 2020-09-01 2020-09-01 Orders Doctor BASILIA 1.2.840.114 [id number] 00:00:00 00:00:00 Only Unassigned, MONIQUE 350.1.13.10 [place] [facility] 4.2.7.2.686 [id number] 2020-09-01 2020-09-01 Orders Doctor BASILIA 1.2.840.114 [id number] Univers 00:00:00 00:00:00 Only Unassigned, MONIQUE 350.1.13.10 [facility] 4.2.7.2.686 Jeff as [id number] [facility] 009 Branch 2020-08-25 2020-08-25 Transition Tuan Peters 1.2.840.114 [id number] 00:00:00 00:00:00 of Care Ruchi Garciay 350.1.13.10 [place] 4.2.7.2.686 [id number] [facility] 2020-08-25 2020-08-25 Transition Tuan Peters 1.2.840.114 [id number] Univers 00:00:00 00:00:00 of Care Ruchi Garciay 350.1.13.10 it y of [place] [id number] [address] 2020-08-21 2020-08-23 [facility] Ayleen 1.2.840.114 [id number] 01:07:00 18:35:00 Encounter Kelly Amaya 350.1.13.10 [facility] 4.2.7.2.686 [id number] [facility] 2020-08-21 2020-08-23 [facility] 1. 2.840.114 [id number] [facility] 01:07:00 18:35:00 Encounter Mukul Gallardo 350.1.13. 10 ity of [facility] 4.2.7.2.686 Jeff as [id number] [address] Results Test Description Test Time Test Comments Results Result Comments Source POCT GLUCOSE (AUTOMATED) 2020-12-17 15:43:35 Test Item Value Reference Range Interpretation Comme nts POCT GLU (test code = 8324504615) 129 mg/dL 70-110 H Lab Interpretation (test code = 17790-4) Abnormal [facility] METABOLIC PANEL (NA, K, CL, CO2, GLUCOSE, BUN, CREATININE, CA)2020-12-17 11:45:07 Test Item Value Reference Range Interpretation Comments NA (test code = 137 mmol/L 135-145 4110000416) K (test code = 3.5 mmol/L 3.5-5.0 9541917002) CL (test code = 103 mmol/L 98-108 0611805717) CO2 TOTAL (test code = 26 mmol/L 23-31 8232745338) AGAP (test code = 2-16 9727469320) BUN (test code = 11 mg/dL 7-23 6848325833) GLUCOSE (test code = 175 mg/dL 70-110 H 4527437516) CREATININE (test code = 0.62 mg/dL 0.60-1.25 4470929870) CALCIUM (test code = 9.0 mg/dL 8.6-10.6 1278008938) eGFR Calculation mL/min/1.73m2 (Non-) (test code = 1619460305) eGFR Calculation mL/min/1.73m2 () (test code = 1315581774) JAMES (test code = JAMES) Association of [...] tests). Lab Interpretation Abnormal (test code = 03482-2) [facility] WITH [id number] 11:07:27 Test Item Value Reference Range Interpretation [...] RDW-SD (test code = 45.2 fL 38.5-51.6 05551-9) RDW-CV (test code = 16.9 % 12.1-15.4 H 788-0) PLT (test code = See_Comment H [Automated 777-3) message] The sy stem which generated this result transmitted reference range : 150 - 328 10*3/ ?L. The reference r torito was not used to interpret this result as normal/abnormal . MPV (test code = 8.1 fL 9.8-13.0 L 07875-0) NRBC/100 WBC (test See_Comment [Automat ed code = 4671943516) message] The system which generated this result transmitted reference range : 0.0 - 10.0 /100 WBCs. The refer ence range was not u sed to interpret th is result as normal/abnormal . NRBC x10^3 (test code <0.01 See_Comment [Auto mated = 0839862534) message] The s ystem which generated this result transmitted reference range : 10*3/?L. The reference range was not used to interpret this result as normal/abnormal . GRAN MAT (NEUT) % 72.8 % (test code = 770-8) IMM GRAN % (test code 0.60 % = 7959811834) LYMPH % (test code = 18.4 % 736-9) MONO % (test code = 5.7 % 5905-5) EOS % (test code = 1.8 % 713-8) BASO % (test code = 0.7 % 706-2) GRAN MAT x10^3(ANC) 8.23 10*3/uL 1.99-6.95 H (test code = 7377891805) IMM GRAN x10^3 (test 0.07 10*3/uL 0.00-0.06 H code = 9085877461) LYMPH x10^3 (test code 2.08 10*3/uL 1.09-3.23 = 731-0) MONO x10^3 (test code 0.65 10*3/uL 0.36-1.02 = 742-7) EOS x10^3 (test code = 0.20 10*3/uL 0.06-0.53 711-2) BASO x10^3 (test code 0.08 10*3/uL 0.01-0.09 = 704-7) Lab Interpretation Abnormal (test code = 16850-0) [facility]2020-12[facility]17 06:03:38 Test Item Value Reference Range Interpretation Comments POCT GLU (test code = 0088007121) 75 mg/dL 70-110 Lab Interpretation (test code = Normal 39077-9) [facility]6, [id number] 00:01:00 Test Item Value Reference Range Interpretation Comments VIT B6 (test code = 13.1 nmol/L 20.0-125.0 L INTERPRE TIVE 26471-1) INFORMATION: Vi tamin B6 (Pyridoxal 5-Phosphate) Pyridoxal [...] intended for cl inical purposes.Perfor med By: [employer] [place] [id number] Director: Namrata Klein MD Lab Interpretation Abnormal (test code = 64561-3) [facility] TIBIA FIBULA 2 VW [id number] 23:57:09 Tricompartmental knee joint osteoarthrosis.XR TIBIA FIBULA [...] No acute fracture or dislocation.IMPRESSIONTricompartmental knee joint osteoarthrosis.[facility] GLUCOSE (AUTOMATED) 2020-12-16 23:27:00 Test Item Value Reference Range Interpretation Comments POCT GLU (test code = 6260677926) 114 mg/dL 70-110 H Lab Interpretation (test code = Abnormal 84005-7) [facility] GLUCOSE (AUTOMATED)2020-12-16 20:12:00 Test Item Value Reference Range Interpretation Comments POCT GLU (test code = 4354821146) 105 mg/dL 70-110 Lab Interpretation (test code = Normal 53628-8) [facility] GLUCOSE (AUTOMATED)2020-12-16 14:44:00 Test Item Value Reference Range Interpretation Comments POCT GLU (test code = 5486551294) 153 mg/dL 70-110 H Lab Interpretation (test code = Abnormal 78087-6) [facility] METABOLIC PANEL (NA, K, CL, CO2, GLUCOSE, BUN, CREATININE, CA)2020-12-16 14:23:00 Test Item Value Reference Range Interpretation Comments NA (test code = 138 mmol/L 135-145 7901757571) K (test code = 3.4 mmol/L 3.5-5.0 L 4274140903) CL (test code = 100 mmol/L 98-108 9852303921) CO2 TOTAL (test code = 31 mmol/L 23-31 1851579916) AGAP (test code = 2-16 0010761525) BUN (test code = 11 mg/dL 7-23 8825978885) GLUCOSE (test code = 162 mg/dL 70-110 H 3493160370) CREATININE (test code = 0.64 mg/dL 0.60-1.25 1835572551) CALCIUM (test code = 8.9 mg/dL 8.6-10.6 7848558875) eGFR Calculation mL/min/1.73m2 (Non-) (test code = 5853062939) eGFR Calculation mL/min/1.73m2 () (test code = 0068152852) JAMES (test code = JAMES) Association of [...] tests). Lab Interpretation Abnormal (test code = 71205-3) [facility] WITH [id number] 14:05:00 Test Item Value Reference Range Interpretation [...] RDW-SD (test code = 45.4 fL 38.5-51.6 65289-7) RDW-CV (test code = 17.0 % 12.1-15.4 H 788-0) PLT (test code = See_Comment H [Automated 777-3) message] The sy stem which generated this result transmitted reference range : 150 - 328 10*3/ ?L. The reference r torito was not used to interpret this result as normal/abnormal . MPV (test code = 8.0 fL 9.8-13.0 L 70174-5) NRBC/100 WBC (test See_Comment [Automat ed code = 8554673656) message] The system which generated this result transmitted reference range : 0.0 - 10.0 /100 WBCs. The refer ence range was not u sed to interpret th is result as normal/abnormal . NRBC x10^3 (test code <0.01 See_Comment [Auto mated = 0442140329) message] The s ystem which generated this result transmitted reference range : 10*3/?L. The reference range was not used to interpret this result as normal/abnormal . GRAN MAT (NEUT) % 70.0 % (test code = 770-8) IMM GRAN % (test code 0.70 % = 4498525291) LYMPH % (test code = 20.5 % 736-9) MONO % (test code = 7.1 % 5905-5) EOS % (test code = 1.0 % 713-8) BASO % (test code = 0.7 % 706-2) GRAN MAT x10^3(ANC) 9.44 10*3/uL 1.99-6.95 H (test code = 4802853088) IMM GRAN x10^3 (test 0.09 10*3/uL 0.00-0.06 H code = 4608475873) LYMPH x10^3 (test code 2.76 10*3/uL 1.09-3.23 = 731-0) MONO x10^3 (test code 0.96 10*3/uL 0.36-1.02 = 742-7) EOS x10^3 (test code = 0.13 10*3/uL 0.06-0.53 711-2) BASO x10^3 (test code 0.10 10*3/uL 0.01-0.09 H = 704-7) Lab Interpretation Abnormal (test code = 58484-1) [facility] # [id number] 13:01:00 Test Item Value Reference Range Interpretation Comments Blood Culture-Aerobic No organisms No growth Previo us (test code = 09220-0) isolated prelim inary verified result was Culture In Progress on 12/11/2020 at 100 1 CSTPrevious preliminary verified result was No growth a t 24 hours on 12/12/2020 at 070 1 CSTPrevious preliminary verified result was No growth a t 48 hours on 12/13/2020 at 070 1 CSTPrevious preliminary verified result was No growth a t 72 hours on 12/14/2020 at 070 1 [employer]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 Blood No organisms No growth Previous Culture-Anaerobic isolated preliminar y (test code = 81417-0) verifi ed result was Culture In Progress on 12/11/2020 at 100 1 CSTPrevious preliminary verified result was No growth a t 24 hours on 12/12/2020 at 070 1 CSTPrevious preliminary verified result was No growth a t 48 hours on 12/13/2020 at 070 1 CSTPrevious preliminary verified result was No growth a t 72 hours on 12/14/2020 at 070 1 S[employer]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 Lab Interpretation Normal (test code = 20852-2) [facility] - Peripheral # [id number] 13:01:00 Test Item Value Reference Range Interpretation Comments Blood Culture-Aerobic No organisms No growth Previo us (test code = 37030-2) isolated prelim inary verified result was Culture In Progress on 12/11/2020 at 100 1 CSTPrevious preliminary verified result was No growth a t 24 hours on 12/12/2020 at 070 1 CSTPrevious preliminary verified result was No growth a t 48 hours on 12/13/2020 at 070 1 CSTPrevious preliminary verified result was No growth a t 72 hours on 12/14/2020 at 070 1 SEN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 Blood No organisms No growth Previous Culture-Anaerobic isolated preliminar y (test code = 12091-3) verifi ed result was Culture In Progress on 12/11/2020 at 100 1 CSTPrevious preliminary verified result was No growth a t 24 hours on 12/12/2020 at 070 1 CSTPrevious preliminary verified result was No growth a t 48 hours on 12/13/2020 at 070 1 CSTPrevious preliminary verified result was No growth a t 72 hours on 12/14/2020 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 No interval change in [...] of intra and extrahepatic biliary du ctal dilatation.[facility] GLUCOSE (AUTOMATED) 2020-12-15 19:28:00 Test Item Value Reference Range Interpretation Comments POCT GLU (test code = 1086870868) 140 mg/dL 70-110 H Lab Interpretation (test code = Abnormal 24227-8) [facility] 15:26:00 Test Item Value Reference Range Interpretation Comments MAGNESIUM (test code = 7860460083) 2.2 mg/dL 1.7-2.4 Lab Interpretation (test code = Normal 14517-9) [facility]2020-12-15 15:15:00 Test Item Value Reference Range Interpretation Comments POCT GLU (test code = 7161186906) 181 mg/dL 70-110 H Lab Interpretation (test code = Abnormal 99897-9) [facility] (NA, K, CL, CO2, GLUCOSE, BUN, CREATININE, CA)2020-12-15 13:07:00 Test Item Value Reference Range Interpretation Comments NA (test code = 136 mmol/L 135-145 2044866340) K (test code = 3.6 mmol/L 3.5-5.0 8958513008) CL (test code = 96 mmol/L 98-108 L 5849940943) CO2 TOTAL (test code = 29 mmol/L 23-31 5610956505) AGAP (test code = 2-16 5316623691) BUN (test code = 12 mg/dL 7-23 6144249687) GLUCOSE (test code = 183 mg/dL 70-110 H 3257437410) CREATININE (test code = 0.70 mg/dL 0.60-1.25 6789536240) CALCIUM (test code = 9.2 mg/dL 8.6-10.6 6767875217) eGFR Calculation mL/min/1.73m2 (Non-) (test code = 0068239247) eGFR Calculation mL/min/1.73m2 () (test code = 8333913281) JAMES (test code = JAMES) Association of [...] tests). Lab Interpretation Abnormal (test code = 63154-0) [facility] WITH [id number] 12:32:00 Test Item Value Reference Range Interpretation Comments WBC (test code = See_Comment H [Automated 2890-2) message] The system which generated this result transmit ronan reference range : 4.20 - 10.70 10*3/?L. The reference range was not used to interpret this result as normal/abnormal . RBC (test code = See_Comment H [Automated 049-8) message] The system which generated this result [...] RDW-SD (test code = 44.4 fL 38.5-51.6 92937-4) RDW-CV (test code = 17.7 % 12.1-15.4 H 788-0) PLT (test code = See_Comment H [Automated 777-3) message] The system which generated this result transmit ronan reference range : 150 - 328 10*3/ ?L. The reference range was not u sed to interpret th is result as normal/abnormal . MPV (test code = 8.1 fL 9.8-13.0 L 79374-3) NRBC/100 WBC (test See_Comment [Automat ed code = 8905134154) message] The system which generated this result transmit ronan reference range : 0.0 - 10.0 /100 WBCs. The reference range was not used to interpret this result as normal/abnormal . NRBC x10^3 (test code <0.01 See_Comment [Auto mated = 4927447741) message] The system which generated this result transmit ronan reference range : 10*3/?L. The reference range was not used to interpret this result as normal/abnormal . GRAN MAT (NEUT) % 74.5 % (test code = 770-8) IMM GRAN % (test code 0.70 % = 2308507019) LYMPH % (test code = 17.4 % 736-9) MONO % (test code = 6.8 % 5905-5) EOS % (test code = 0.2 % 713-8) BASO % (test code = 0.4 % 706-2) GRAN MAT x10^3(ANC) 11.99 10*3/uL 1.99-6.95 H (test code = 4380622553) IMM GRAN x10^3 (test 0.11 10*3/uL 0.00-0.06 H code = 2934443210) LYMPH x10^3 (test code 2.80 10*3/uL 1.09-3.23 = 731-0) MONO x10^3 (test code 1.10 10*3/uL 0.36-1.02 H = 742-7) EOS x10^3 (test code = 0.03 10*3/uL 0.06-0.53 L 711-2) BASO x10^3 (test code 0.06 10*3/uL 0.01-0.09 = 704-7) Lab Interpretation Abnormal (test code = 79193-1) [facility] GLUCOSE (AUTOMATED)2020-12-15 04:16:00 Test Item Value Reference Range Interpretation Comments POCT GLU (test code = 9310886597) 200 mg/dL 70-110 H Lab Interpretation (test code = Abnormal 79908-9) [facility] (THIAMINE), WHOLE [id number] 00:30:00 Test Item Value Reference Range Interpretation Comments Vitamin B1, Whole 136 nmol/L 70-180 INTERPRETI VE INFORMATION: Blood (test code = Vitamin B 1, Whole Blood 08728-3) This assay júnior ures the concentration o [...] is intended for clinical purposes.Perfor med By: [facility] [address] [place] [address] [id number] aboratory Director: Namrata Klein MD [facility] GLUCOSE (AUTOMATED)2020-12-14 23:35:00 Test Item Value Reference Range Interpretation Comments POCT GLU (test code = 3676805811) 151 mg/dL 70-110 H Lab Interpretation (test code = Abnormal 34353-8) [facility] GLUCOSE (AUTOMATED)2020-12-14 19:19:00 Test Item Value Reference Range Interpretation Comments POCT GLU (test code = 2775005130) 193 mg/dL 70-110 H Lab Interpretation (test code = Abnormal 93956-9) [facility] GLUCOSE (AUTOMATED)2020-12-14 15:22:00 Test Item Value Reference Range Interpretation Comments POCT GLU (test code = 7114967124) 221 mg/dL 70-110 H Lab Interpretation (test code = Abnormal 84392-7) [facility] GLUCOSE (AUTOMATED)2020-12-14 02:37:00 Test Item Value Reference Range Interpretation Comments POCT GLU (test code = 7869335279) 210 mg/dL 70-110 H Lab Interpretation (test code = Abnormal 37568-4) [facility] GLUCOSE (AUTOMATED)2020-12-13 23:33:00 Test Item Value Reference Range Interpretation Comments POCT GLU (test code = 2417722889) 182 mg/dL 70-110 H Lab Interpretation (test code = Abnormal 78942-2) [facility] GLUCOSE (AUTOMATED)2020-12-13 18:09:00 Test Item Value Reference Range Interpretation Comments POCT GLU (test code = 2368839552) 150 mg/dL 70-110 H Lab Interpretation (test code = Abnormal 59119-6) [facility] METABOLIC PANEL (NA, K, CL, CO2, GLUCOSE, BUN, CREATININE, CA)2020-12-13 16:27:00 Test Item Value Reference Range Interpretation Comments NA (test code = 136 mmol/L 135-145 2750747748) K (test code = 3.7 mmol/L 3.5-5.0 1501331382) CL (test code = 96 mmol/L 98-108 L 8493177288) CO2 TOTAL (test code = 29 mmol/L 23-31 0777865156) AGAP (test code = 2-16 4399535079) BUN (test code = 6 mg/dL 7-23 L 5463093426) GLUCOSE (test code = 212 mg/dL 70-110 H 2946713157) CREATININE (test code = 0.61 mg/dL 0.60-1.25 8744844103) CALCIUM (test code = 9.5 mg/dL 8.6-10.6 9952004738) eGFR Calculation mL/min/1.73m2 (Non-) (test code = 6054325699) eGFR Calculation mL/min/1.73m2 () (test code = 2069115840) JAMES (test code = JAMES) Association of [...] tests). Lab Interpretation Abnormal (test code = 70451-7) [facility] WITH [id number] 16:10:00 Test Item Value Reference Range Interpretation Comments WBC (test code = See_Comment H [Automated 6090-2) message] The sy stem which generated this result transmitted reference range : 4.20 - 10.70 10*3/?L. The reference range was not used to interpret this result as normal/abnormal . RBC (test code = See_Comment H [Automated 169-8) message] The sy stem which generated this [...] RDW-SD (test code = 43.3 fL 38.5-51.6 21177-3) RDW-CV (test code = 16.2 % 12.1-15.4 H 788-0) PLT (test code = See_Comment H [Automated 777-3) message] The sy stem which generated this result transmitted reference range : 150 - 328 10*3/ ?L. The reference r torito was not used to interpret this result as normal/abnormal . MPV (test code = 8.2 fL 9.8-13.0 L 85597-6) NRBC/100 WBC (test See_Comment [Automat ed code = 9475652500) message] The system which generated this result transmitted reference range : 0.0 - 10.0 /100 WBCs. The refer ence range was not u sed to interpret th is result as normal/abnormal . NRBC x10^3 (test code <0.01 See_Comment [Auto mated = 3638616297) message] The s ystem which generated this result transmitted reference range : 10*3/?L. The reference range was not used to interpret this result as normal/abnormal . GRAN MAT (NEUT) % 86.2 % (test code = 770-8) IMM GRAN % (test code 0.70 % = 1629245730) LYMPH % (test code = 10.2 % 736-9) MONO % (test code = 2.5 % 5905-5) EOS % (test code = 0.1 % 713-8) BASO % (test code = 0.3 % 706-2) GRAN MAT x10^3(ANC) 9.61 10*3/uL 1.99-6.95 H (test code = 4710776905) IMM GRAN x10^3 (test 0.08 10*3/uL 0.00-0.06 H code = 2778913994) LYMPH x10^3 (test code 1.14 10*3/uL 1.09-3.23 = 731-0) MONO x10^3 (test code 0.28 10*3/uL 0.36-1.02 L = 742-7) EOS x10^3 (test code = <0.03 0.06-0.53 L 711-2) BASO x10^3 (test code 0.03 10*3/uL 0.01-0.09 = 704-7) Lab Interpretation Abnormal (test code = 87966-2) [facility]2020-12-13 14:16:00 Test Item Value Reference Range Interpretation Comments POCT GLU (test code = 0500390313) 236 mg/dL 70-110 H Lab Interpretation (test code = Abnormal 91443-9) [facility] ONLY COVID [id number] 04:58:00COVID DMT InterpretationInterpretation/Recommendations: Molecular NAAT Tests for [...] COVID-19 testing the patient has had at [facility], including molecular NAAT testing (more commonly known as PCR testing and Rapid ID Now testing) and antibody testing. It does not take into account any testing that a patient has had outside of the [facility] medical record. [facility] LABORATORY SERVICESCOVID Resu grsOBWQ-KzW-0 Rapid ID NOW (no units) ? ? Date ? Value ? 12/11/2020 ? Not Detected ? ? ? 11/16/2020 ? Not Detected ? ? ? 08/21/2020 ?Not Detected ? [facility] 2020-12-13 03:11:00 Test Item Value Reference Range Interpretation Comments POCT GLU (test code = 3292721441) 171 mg/dL 70-110 H Lab Interpretation (test code = Abnormal 85109-5) [facility] GLUCOSE (AUTOMATED)2020-12-13 00:00:00 Test Item Value Reference Range Interpretation Comments POCT GLU (test code = 4290557927) 118 mg/dL 70-110 H Lab Interpretation (test code = Abnormal 84653-9) [facility] GLUCOSE (AUTOMATED)2020-12-12 20:29:00 Test Item Value Reference Range Interpretation Comments POCT GLU (test code = 5450537037) 173 mg/dL 70-110 H Lab Interpretation (test code = Abnormal 03821-3) [facility] ABDOMEN [id number] 19:56:17 1. ?Hepatic steatosis. However, limited evaluation [...] main portal veinwasevaluated with color Doppler imaging. Flight Test Supervisor images were obtainedfor the record. COMPARISON: Ultrasound [...] portal vein wasevaluated with color Doppler imaging. Flight Test Supervisor images were obtainedfor the record.COMPARISON: Ultrasound abdomen [...] measures 0.5 cm.Preliminary Report Dictated by Resident: iMckey Neal MD., have reviewed this study and agree with the abovereport. [facility]2020-12-12 19:24:00 Test Item Value Reference Range Interpretation Comments POCT GLU (test code = 9924200855) 230 mg/dL 70-110 H Lab Interpretation (test code = Abnormal 87266-6) [facility]XR CHEST 1 [id number] 15:16:46 Low lung volumes with mild perihilar [...] thisstudy and agree with theabove report.[facility]2020-12-12 14:34:00 Test Item Value Reference Range Interpretation Comments POCT GLU (test code = 9246427159) 225 mg/dL 70-110 H Lab Interpretation (test code = Abnormal 99810-0) [facility] HospitalURINE [id number] 13:28:00 Test Item Value Reference Range Interpretation Comments URINE CULTURE (test < 10,000 CFU/mL mixed code = 630-4) aerobic organisms - suggests endogenous microbial contamination [facility] Met[facility] Panel (NA, K, CL, CO2, GLUCOSE, BUN, CREATININE, CA)2020-12-12 10:05:00 Test Item Value Reference Range Interpretation Comments NA (test code = 136 mmol/L 135-145 8811374932) K (test code = 3.5 mmol/L 3.5-5.0 5538067501) CL (test code = 100 mmol/L 98-108 8676469010) CO2 TOTAL (test code = 31 mmol/L 23-31 7018370081) AGAP (test code = 2-16 0399348137) BUN (test code = 7 mg/dL 7-23 9687683922) GLUCOSE (test code = 259 mg/dL 70-110 H 6834750143) CREATININE (test code = 0.63 mg/dL 0.60-1.25 0975804557) CALCIUM (test code = 8.5 mg/dL 8.6-10.6 L 2848306215) eGFR Calculation mL/min/1.73m2 (Non-) (test code = 9137015741) eGFR Calculation mL/min/1.73m2 () (test code = 1956751707) JAMES (test code = JAMES) Association of [...] tests). Lab Interpretation Abnormal (test code = 13116-8) [facility] HospitalMagnesium [id number] 10:05:00 Test Item Value Reference Range Interpretation Comments MAGNESIUM (test code = 0844655888) 1.9 mg/dL 1.7-2.4 Lab Interpretation (test code = Normal 53705-6) [facility] with [id number] 09:48:00 Test Item Value Reference Range Interpretation Comments WBC (test code = See_Comment [Automated 9546-2) message] The sy stem which generated this result transmitted reference range : 4.20 - 10.70 10*3/?L. The reference range was not used to interpret this result as normal/abnormal . RBC (test code = See_Comment [Automated 702-0) message] The sy stem which generated this [...] RDW-SD (test code = 46.0 fL 38.5-51.6 08679-2) RDW-CV (test code = 16.1 % 12.1-15.4 H 788-0) PLT (test code = See_Comment H [Automated 777-3) message] The sy stem which generated this result transmitted reference range : 150 - 328 10*3/ ?L. The reference r torito was not used to interpret this result as normal/abnormal . MPV (test code = 8.6 fL 9.8-13.0 L 12132-2) NRBC/100 WBC (test See_Comment [Automat ed code = 4644026283) message] The system which generated this result transmitted reference range : 0.0 - 10.0 /100 WBCs. The refer ence range was not u sed to interpret th is result as normal/abnormal . NRBC x10^3 (test code <0.01 See_Comment [Auto mated = 4713912496) message] The s ystem which generated this result transmitted reference range : 10*3/?L. The reference range was not used to interpret this result as normal/abnormal . GRAN MAT (NEUT) % 70.2 % (test code = 770-8) IMM GRAN % (test code 0.30 % = 1999064941) LYMPH % (test code = 18.8 % 736-9) MONO % (test code = 5.0 % 5905-5) EOS % (test code = 5.2 % 713-8) BASO % (test code = 0.5 % 706-2) GRAN MAT x10^3(ANC) 6.05 10*3/uL 1.99-6.95 (test code = 8812249872) IMM GRAN x10^3 (test 0.03 10*3/uL 0.00-0.06 code = 0366667068) LYMPH x10^3 (test code 1.62 10*3/uL 1.09-3.23 = 731-0) MONO x10^3 (test code 0.43 10*3/uL 0.36-1.02 = 742-7) EOS x10^3 (test code = 0.45 10*3/uL 0.06-0.53 711-2) BASO x10^3 (test code 0.04 10*3/uL 0.01-0.09 = 704-7) Lab Interpretation Abnormal (test code = 93072-7) [facility] GLUCOSE (AUTOMATED)2020-12-12 03:42:00 Test Item Value Reference Range Interpretation Comments POCT GLU (test code = 196 mg/dL 70-110 H Notifi ed Provider 3847303441) Lab Interpretation (test Abnormal code = 66959-2) [facility] HospitalFOLATE2021-03-[facility] 02:24:00 Test Item Value Reference Range Interpretation Comments FOLATE SER (test code = 2520144352) 5.8 ng/mL 3.0-20.0 Lab Interpretation (test code = Normal 53531-6) [facility] HospitalVITAMIN B12, [id number] 00:55:00 Test Item Value Reference Range Interpretation Comments VIT B12 (test code = 844 pg/mL 240-930 9659158392) JAMES (test code = JAMES) Biotin has been reported to cause a positive bias, interpret results relative to patient's use of biotin. Lab Interpretation (test Normal code = 95657-6) [facility] GLUCOSE (AUTOMATED)2020-12-12 00:14:00 Test Item Value Reference Range Interpretation Comments POCT GLU (test code = 7827319681) 164 mg/dL 70-110 H Lab Interpretation (test code = Abnormal 16126-6) [facility] HospitalCREATINE [id number] 23:42:00 Test Item Value Reference Range Interpretation Comments CK (test code = 1230273918) <20 33-194 L Lab Interpretation (test code = Abnormal 22542-9) [facility] HospitalTHYROID STIMULATING [id number] 23:17:00 Test Item Value Reference Range Interpretation Comments TSH (test code = See_Comment Biotin has been 5767647837) reported to cau se a negative bias, interpret resul ts relative to pat ient's use of biotin. [Automated mess age] The system whic h generated this result transmitted ref erence range: 0.45 - 4 .70 mIU/L. The refe rence range was not u sed to interpret this result as normal/abnor mal. Lab Interpretation (test Normal code = 88628-2) [facility] HospitalXR HIPS 3 VW [id number] 21:41:53No appreciable fracture lines. RL: 6200 ICAL [...] No osseous erosions.IMPRESSIONNo appreciable fracture lines.RL: 6200 [facility] CenterPROCALCITONIN2021-[facility]-01 20:00:00 Test Item Value Reference Range Interpretation Comments Procalcitonin (test 0.13 ng/mL <0.07 H code = 5269543170) JAMES (test code = JAMES) INTERPRETATION OF [...] biotics/default.asp Lab Interpretation Abnormal (test code = 03287-2) [facility])2020-12-11 19:07:00 Test Item Value Reference Range Interpretation Comments POCT GLU (test code = 0870663871) 274 mg/dL 70-110 H Lab Interpretation (test code = Abnormal 19825-9) [facility] HospitalMAGNESIUM2021-03-01 18:31:00 Test Item Value Reference Range Interpretation Comments MAGNESIUM (test code = 7213832872) 1.9 mg/dL 1.7-2.4 Lab Interpretation (test code = Normal 26887-0) [facility] HospitalFERRITIN [id number] 18:31:00 Test Item Value Reference Range Interpretation Comments FERRITIN (test code = 178.0 ng/mL 18.0-464.0 1886462219) JAMES (test code = JAMES) Biotin has been reported to cause a negative bias, interpret results relative to patient's use of biotin. Lab Interpretation (test Normal code = 80017-0) [facility] HospitalCT HEAD WO [id number] 14:36:47 No acute intracranial abnormality. Dilated ventricles [...] study and agree with the abovereport.[facility] HospitalURINALYSIS2021-03-01 14:28:00 Test Item Value Reference Range Interpretation Comments APPEARANCE (test code = Clear Clear 5598810785) COLOR (test code = Yellow Yellow 9638961345) PH (test code = 4.8-8.0 8510999747) SP GRAVITY (test code = 1.003-1.030 1989154036) GLU U QUAL (test code = 500 mg/dL Normal A 5104936588) BLOOD (test code = Negative Negative 0472196861) KETONES (test code = 5 mg/dL Negative A 3400463245) PROTEIN (test code = Negative Negative 2887-8) UROBILIN (test code = Normal Normal 6143066484) BILIRUBIN (test code = Negative Negative 0678400566) NITRITE (test code = Negative Negative 6311349274) LEUK RYAN (test code = Negative Negative 8463352438) RBC/HPF (test code = See_Comment [Autom ated message] 4402337644) The system Pickie generated this result transmit ronan reference range : 0 - 3 HPF. The refe rence range was not u sed to interpret th is result as normal/abnormal . WBC/HPF (test code = See_Comment [Autom ated message] 4420493320) The system Pickie generated this result transmit ronan reference range : 0 - 5 HPF. The refe rence range was not u sed to interpret th is result as normal/abnormal . BACTERIA (test code = Negative Negative 5292125840) MUCOUS (test code = Slight Negative LPF A 8277417990) SQ EPITH (test code = HPF 0973783761) Lab Interpretation (test Abnormal code = 69871-7) [facility] HospitalCOVID-[facility] (ID NOW RAPID TESTING)2020-12-11 13:10:00 Test Item Value Reference Range Interpretation Comments SARS-CoV-2 Rapid ID NOW Not Detected Not Detected (test code = 84616-3) JAMES (test code = JAMES) ID NOW COVID-19 Assay is an isothermal nucleic acid amplification test intended for the qualitative detection of nucleic acid from SARS-CoV-2 viral RNA in nasopharyngeal ([employer]) specimens. It is used under Emergency Use [...] indicated. Lab Interpretation Normal (test code = 52595-1) [facility] (13613)2020-12-11 12:29:00 Test Item Value Reference Range Interpretation Comments NA (test code = 136 mmol/L 135-145 0403593617) K (test code = 3.5 mmol/L 3.5-5.0 2395434919) CL (test code = 95 mmol/L 98-108 L 2500897233) CO2 TOTAL (test code = 35 mmol/L 23-31 H 8404385581) AGAP (test code = 2-16 5206843621) BUN (test code = 9 mg/dL 7-23 9013848426) GLUCOSE (test code = 329 mg/dL 70-110 H 9630761146) CREATININE (test code = 0.72 mg/dL 0.60-1.25 3439195948) TOTAL BILI (test code = 0.6 mg/dL 0.1-1.8 2848194282) CALCIUM (test code = 9.0 mg/dL 8.6-10.6 4585319611) T PROTEIN (test code = 6.8 g/dL 6.3-8.2 5377628845) ALBUMIN (test code = 3.8 g/dL 3.5-5.0 5387286131) ALK PHOS (test code = 288 U/L 34-122 H 7143598952) ALTv (test code = 46 U/L 5-50 1741-6) AST(SGOT) (test code = 38 U/L 13-40 0378345057) eGFR Calculation mL/min/1.73m2 (Non-) (test code = 6156085246) eGFR Calculation mL/min/1.73m2 () (test code = 0252890103) JAMES (test code = JAMES) Association of [...] tests). Lab Interpretation Abnormal (test code = 22518-8) [facility] HospitalLactic Acid Whole [id number] 12:23:00 Test Item Value Reference Range Interpretation Comments LACTIC ACID (test code = 2.09 mmol/L 0.50-2.20 1258002185) Lab Interpretation (test code = Normal 10513-8) [facility]CB WITH [id number] 12:17:00 Test Item Value Reference Range Interpretation [...] RDW-SD (test code = 44.9 fL 38.5-51.6 61333-1) RDW-CV (test code = 15.9 % 12.1-15.4 H 788-0) PLT (test code = See_Comment H [Automated 777-3) message] The sy stem which generated this result transmitted reference range : 150 - 328 10*3/ ?L. The reference r torito was not used to interpret this result as normal/abnormal . MPV (test code = 8.3 fL 9.8-13.0 L 31969-4) NRBC/100 WBC (test See_Comment [Automat ed code = 4368865617) message] The system which generated this result transmitted reference range : 0.0 - 10.0 /100 WBCs. The refer ence range was not u sed to interpret th is result as normal/abnormal . NRBC x10^3 (test code <0.01 See_Comment [Auto mated = 2193507521) message] The s ystem which generated this result transmitted reference range : 10*3/?L. The reference range was not used to interpret this result as normal/abnormal . GRAN MAT (NEUT) % 77.9 % (test code = 770-8) IMM GRAN % (test code 0.50 % = 4270402776) LYMPH % (test code = 12.2 % 736-9) MONO % (test code = 5.2 % 5905-5) EOS % (test code = 3.7 % 713-8) BASO % (test code = 0.5 % 706-2) GRAN MAT x10^3(ANC) 9.57 10*3/uL 1.99-6.95 H (test code = 5153753626) IMM GRAN x10^3 (test 0.06 10*3/uL 0.00-0.06 code = 9494986443) LYMPH x10^3 (test code 1.50 10*3/uL 1.09-3.23 = 731-0) MONO x10^3 (test code 0.64 10*3/uL 0.36-1.02 = 742-7) EOS x10^3 (test code = 0.46 10*3/uL 0.06-0.53 711-2) BASO x10^3 (test code 0.06 10*3/uL 0.01-0.09 = 704-7) Lab Interpretation Abnormal (test code = 36776-7) [facility] ONLY COVID [id number] 18:43:00COVID DMT InterpretationInterpretation/Recommendations: Molecular NAAT Test Results [...] a nasopharyngeal sample, there is approximately a krk-er-cjqzy chance that the patient was infected and [...] based upon aggregate data pooled from the [facility] medical record including both current and prior COVID-19 related testing results for the following tests offered at our institution:A. Tests for the Identification of SARS-CoV-2 RNA:SARS-CoV-2 PCR assays including [place] Aptima, [place] Fusion, Barrett RealTime, and [employer] Xpert Xpress. SARS-CoV-2 Rapid ID NOW by the ID NOW assay. ? B. Tests for the Identification of SARS-CoV-2 Antibodies: Chemiluminescent immunoassays including Access SARS-CoV-2 IgM (DXI 600), AvneraS Aitt-JQAR-MlD-2 IgG (Vitros 5600 and Vitros 3600), and Barrett SARS-CoV-2 IgG (EXCEPTIONAL STUDENT EDUCATION TEACHER I System). These interpretation comments assume that only the above testing was utilized and that the approved acceptable specimen type(s) were used for a given test. These interpretations are autopopulated into [employer] based on computerized algorithms matching an interpretation code number to the patient's set of test results. While a clinical pathologist evaluates the combinations for clinical accuracy, clinical correlation is recommended as it may not take into account very remote prior testing. Furthermore, it does not consider testing a patient may have had outside of the [facility] system. Additionally, it should be noted that the computerized algorithm treats the results for PCR testing and Rapid ID NOW testing (also PCR) synonymously, and thus, refers to both testing methodologies as PCR tests. Given that the sensitivity of [facility]'s Rapid ID NOW testingplatform is analogous to [...] panel may be beneficial in this setting. [facility] LABORATORY SERVICESCOVID PacjksnAHRC-ZlL-4 Rapid ID NOW (no units) ? ? Date ? Value ? 08/21/2020 ? Not Detected ? [facility]2020-08-23 18:25:00 Test Item Value Reference Range Interpretation Comments POCT GLU (test code = 2764426080) 297 mg/dL 70-110 H Lab Interpretation (test code = Abnormal 80868-9) [facility] GLUCOSE (AUTOMATED)2020-08-23 14:25:00 Test Item Value Reference Range Interpretation Comments POCT GLU (test code = 8326990946) 181 mg/dL 70-110 H Lab Interpretation (test code = Abnormal 85590-6) [facility] HospitalBasi Metabolic Panel (NA, K, CL, CO2, GLUCOSE, BUN, CREATININE, CA)2020-08-23 11:45:00 Test Item Value Reference Range Interpretation Comments NA (test code = 132 mmol/L 135-145 L 1483302060) K (test code = 4.0 mmol/L 3.5-5 0602513660) CL (test code = 96 mmol/L 98-108 L 6206756419) CO2 TOTAL (test code = 33 mmol/L 23-31 H 6977846591) AGAP (test code = 2-16 2928930441) BUN (test code = 9 mg/dL 7-23 4872086311) GLUCOSE (test code = 176 mg/dL 70-110 H 8779788695) CREATININE (test code = 0.66 mg/dL 0.6-1.25 1817553945) CALCIUM (test code = 8.5 mg/dL 8.6-10.6 L 0763895053) eGFR Calculation mL/min/1.73m2 (Non-) (test code = 1791673139) eGFR Calculation mL/min/1.73m2 () (test code = 0950067855) JAMES (test code = JAMES) Association of [...] tests). Lab Interpretation Abnormal (test code = 19016-8) [facility] HospitalMagnesium [id number] 11:45:00 Test Item Value Reference Range Interpretation Comments MAGNESIUM (test code = 8796991934) 2.0 mg/dL 1.7-2.4 Lab Interpretation (test code = Normal 59524-0) [facility]CB with [id number] 11:38:00 Test Item Value Reference Range Interpretation [...] RDW-SD (test code = 41.8 fL 38.5-51.6 15893-6) RDW-CV (test code = 14.3 % 12.1-15.4 788-0) PLT (test code = See_Comment H [Automated 777-3) message] The sy stem which generated this result transmitted reference range : 150 - 328 10*3/ ?L. The reference r torito was not used to interpret this result as normal/abnormal . MPV (test code = 8.0 fL 9.8-13 L 56504-2) NRBC/100 WBC (test See_Comment [Automat ed code = 2011653046) message] The system which generated this result transmitted reference range : 0.0 - 10.0 /100 WBCs. The refer ence range was not u sed to interpret th is result as normal/abnormal . NRBC x10^3 (test code <0.01 See_Comment [Auto mated = 2397923794) message] The s ystem which generated this result transmitted reference range : 10*3/?L. The reference range was not used to interpret this result as normal/abnormal . GRAN MAT (NEUT) % 61.5 % (test code = 770-8) IMM GRAN % (test code 2.00 % = 6153686848) LYMPH % (test code = 25.5 % 736-9) MONO % (test code = 6.3 % 5905-5) EOS % (test code = 3.7 % 713-8) BASO % (test code = 1.0 % 706-2) GRAN MAT x10^3(ANC) 5.29 10*3/uL 1.99-6.95 (test code = 5007304379) IMM GRAN x10^3 (test 0.17 10*3/uL 0-0.06 H code = 0227834914) LYMPH x10^3 (test code 2.19 10*3/uL 1.09-3.23 = 731-0) MONO x10^3 (test code 0.54 10*3/uL 0.36-1.02 = 742-7) EOS x10^3 (test code = 0.32 10*3/uL 0.06-0.53 711-2) BASO x10^3 (test code 0.09 10*3/uL 0.01-0.09 = 704-7) Lab Interpretation Abnormal (test code = 62051-6) [facility] GLUCOSE (AUTOMATED)2020-08-23 10:22:00 Test Item Value Reference Range Interpretation Comments POCT GLU (test code = 0026709781) 164 mg/dL 70-110 H Lab Interpretation (test code = Abnormal 24797-6) [facility] GLUCOSE (AUTOMATED)2020-08-23 05:56:00 Test Item Value Reference Range Interpretation Comments POCT GLU (test code = 3798732508) 242 mg/dL 70-110 H Lab Interpretation (test code = Abnormal 19087-6) [facility] GLUCOSE (AUTOMATED)2020-08-23 03:02:00 Test Item Value Reference Range Interpretation Comments POCT GLU (test code = 7880431996) 210 mg/dL 70-110 H Lab Interpretation (test code = Abnormal 59189-5) [facility] GLUCOSE (AUTOMATED)2020-08-22 23:40:00 Test Item Value Reference Range Interpretation Comments POCT GLU (test code = 1190217104) 267 mg/dL 70-110 H Lab Interpretation (test code = Abnormal 88652-1) [facility] GLUCOSE (AUTOMATED)2020-08-22 19:08:00 Test Item Value Reference Range Interpretation Comments POCT GLU (test code = 5479377274) 191 mg/dL 70-110 H Lab Interpretation (test code = Abnormal 25515-0) [facility] GLUCOSE (AUTOMATED)2020-08-22 13:50:00 Test Item Value Reference Range Interpretation Comments POCT GLU (test code = 4316547557) 174 mg/dL 70-110 H Lab Interpretation (test code = Abnormal 54992-6) [facility] HospitalURINE [id number] 12:59:00 Test Item Value Reference Range Interpretation Comments URINE CULTURE (test No aerobic growth (< code = 630-4) 1000 CFU/mL) [facility] with Uwodtdgobjgp1151-86-54 11:28:00 Test Item Value Reference Range Interpretation [...] RDW-SD (test code = 42.5 fL 38.5-51.6 07825-8) RDW-CV (test code = 14.5 % 12.1-15.4 788-0) PLT (test code = See_Comment H [Automated 777-3) message] The sy stem which generated this result transmitted reference range : 150 - 328 10*3/ ?L. The reference r torito was not used to interpret this result as normal/abnormal . MPV (test code = 8.0 fL 9.8-13 L 97038-1) NRBC/100 WBC (test See_Comment [Automat ed code = 9641387485) message] The system which generated this result transmitted reference range : 0.0 - 10.0 /100 WBCs. The refer ence range was not u sed to interpret th is result as normal/abnormal . NRBC x10^3 (test code <0.01 See_Comment [Auto mated = 4988808758) message] The s ystem which generated this result transmitted reference range : 10*3/?L. The reference range was not used to interpret this result as normal/abnormal . GRAN MAT (NEUT) % 69.1 % (test code = 770-8) IMM GRAN % (test code 2.20 % = 5740799227) LYMPH % (test code = 20.9 % 736-9) MONO % (test code = 5.8 % 5905-5) EOS % (test code = 1.0 % 713-8) BASO % (test code = 1.0 % 706-2) GRAN MAT x10^3(ANC) 6.51 10*3/uL 1.99-6.95 (test code = 8355386543) IMM GRAN x10^3 (test 0.21 10*3/uL 0-0.06 H code = 7985802507) LYMPH x10^3 (test code 1.97 10*3/uL 1.09-3.23 = 731-0) MONO x10^3 (test code 0.55 10*3/uL 0.36-1.02 = 742-7) EOS x10^3 (test code = 0.09 10*3/uL 0.06-0.53 711-2) BASO x10^3 (test code 0.09 10*3/uL 0.01-0.09 = 704-7) BASO STIPPLING (test Present A code = 703-9) BANDS (test code = Increased A 5719629829) TOXIC CHANGES (test Present A code = 803-7) Lab Interpretation Abnormal (test code = 64868-9) [facility] Metabolic Panel (NA, K, CL, CO2, GLUCOSE, BUN, CREATININE, CA)2020-08-22 11:12:00 Test Item Value Reference Range Interpretation Comments NA (test code = 135 mmol/L 135-145 4913893641) K (test code = 3.6 mmol/L 3.5-5 5407029576) CL (test code = 99 mmol/L 98-108 8012405747) CO2 TOTAL (test code = 31 mmol/L 23-31 1245995449) AGAP (test code = 2-16 5130695079) BUN (test code = 9 mg/dL 7-23 3161504133) GLUCOSE (test code = 198 mg/dL 70-110 H 2595272517) CREATININE (test code = 0.72 mg/dL 0.6-1.25 6220991504) CALCIUM (test code = 8.3 mg/dL 8.6-10.6 L 4859904146) eGFR Calculation mL/min/1.73m2 (Non-) (test code = 2945202657) eGFR Calculation mL/min/1.73m2 () (test code = 9851898556) JAMES (test code = JAMES) Association of [...] tests). Lab Interpretation Abnormal (test code = 56398-1) [facility] HospitalMagnesium Ktjis4375-94-86 11:12:00 Test Item Value Reference Range Interpretation Comments MAGNESIUM (test code = 9448949145) 2.0 mg/dL 1.7-2.4 Lab Interpretation (test code = Normal 78788-2) [facility] HospitalLipid Panel (Total Cholesterol, Triglycerides, HDL) - [id number] 11:12:00 Test Item Value Reference Range Interpretation Comments CHOL (test code = 155 mg/dL 120-200 3709265868) HDL (test code = 42 mg/dL >40 4263364552) HDLC RATIO (test code = See_Comment [Au tomated message] 5288830437) The system Pickie generated this result transmit ronan reference range : <=5.0. The refe rence range was not u sed to interpret th is result as normal/abnormal . TRIG (test code = 186 mg/dL 30-170 H 9562976493) LDL CHOL (test code = 76 mg/dL See_Comment [Auto mated message] 22032-3) The system Pickie generated this result transmit ronan reference range : <=160. The refe rence range was not u sed to interpret th is result as normal/abnormal . VLDL (test code = 37 mg/dL 5-60 9292467912) Lab Interpretation (test Abnormal code = 37381-1) [facility] HospitalHEPATIC FUNCTION PANEL (21034) (ALB,T.PRO,BILI T,BU/BC,ALT,AST,ALK PHOS)2020-08-22 11:12:00 Test Item Value Reference Range Interpretation Comments TOTAL BILI (test code = 7453515892) 0.6 mg/dL 0.1-1.1 BILI UNCON (test code = 3324577864) 0.2 mg/dL 0.1-1.1 BILI CONJ (test code = 6764119695) 0.0 mg/dL 0-0.3 T PROTEIN (test code = 7807424258) 6.0 g/dL 6.3-8.2 L ALBUMIN (test code = 8789895958) 2.8 g/dL 3.5-5 L ALK PHOS (test code = 7680325371) 222 U/L 34-122 H ALTv (test code = 1742-6) 27 U/L 5-50 AST(SGOT) (test code = 9438133838) 30 U/L 13-40 Lab Interpretation (test code = Abnormal 77897-8) [facility] GLUCOSE (AUTOMATED)2020-08-22 10:11:00 Test Item Value Reference Range Interpretation Comments POCT GLU (test code = 9496269308) 196 mg/dL 70-110 H Lab Interpretation (test code = Abnormal 97130-3) [facility] GLUCOSE (AUTOMATED)2020-08-22 07:15:00 Test Item Value Reference Range Interpretation Comments POCT GLU (test code = 5341322200) 183 mg/dL 70-110 H Lab Interpretation (test code = Abnormal 92640-1) [facility] GLUCOSE (AUTOMATED)2020-08-22 02:30:00 Test Item Value Reference Range Interpretation Comments POCT GLU (test code = 3482463979) 295 mg/dL 70-110 H Lab Interpretation (test code = Abnormal 99775-3) [facility] GLUCOSE (AUTOMATED)2020-08-21 23:46:00 Test Item Value Reference Range Interpretation Comments POCT GLU (test code = 0561838022) 258 mg/dL 70-110 H Lab Interpretation (test code = Abnormal 17195-5) [facility] HospitalC-REACTIVE [id number] 18:50:00 Test Item Value Reference Range Interpretation Comments CRP (test code = 5714653091) 15.5 mg/dL <0.8 H Lab Interpretation (test code = Abnormal 33005-2) [facility] HospitalPOCT [facility]SE (AUTOMATED)2020-08-21 18:21:00 Test Item Value Reference Range Interpretation Comments POCT GLU (test code = 9433169672) 297 mg/dL 70-110 H Lab Interpretation (test code = Abnormal 60440-1) [facility] HospitalETHANOL2020-11-09 16:24:00 Test Item Value Reference Range Interpretation Comments ALCOHOL (test code = <10 mg/dL 3247591154) JAMES (test code = Toxic Greater than or JAMES) equal to 80 mg/dL. NOTE: Whole blood values are approximately 10% to 15% lower than serum and plasma. [facility] HospitalGALV/CLC ONLY - URINE DRUG (IMMUNOASSAY) - 4 ER [id number] 15:36:00 Test Item Value Reference Range Interpretation Comments AMPHET (test code = Negative Negative 3456446623) Cocaine Metabolite (test Negative Negative code = 4538524956) OPIATES (test code = Presumptive Positive Negative A 3938384701) THC (test code = Negative Negative 5241571346) JAMES (test code = JAMES) Urine Drug Cutoff Ranges Amphetamine: ? 1,000 ng/mLCocaine: ? 150 ng/mLOpiates: ? 300 ng/mLCannabinoids: ?50 ng/mL The results are to be used only for medical (i.e., treatment) purposes. Unconfirmed screening results must not be used for non-medical purposes (e.g., employment testing, legal testing). Lab Interpretation (test Abnormal code = 23666-8) [facility] SYPHILIS [id number] 15:04:00 Test Item Value Reference Range Interpretation Comments Syphilis IgG/IgM (test Non-reactive Non-reactive code = 26772-0) JAMES (test code = JAMES) Non-reactive - No serologic evidence of T. pallidum infection. Cannot exclude incubating or early syphilis. Submit a second specimen in 2-4 weeks if syphilis is clinically suspected. Equivocal - Further testing to follow. Reactive - Further testing to follow. Lab Interpretation (test Normal code = 61062-9) [facility] HospitalUrinalysis2020-11-09 14:52:00 Test Item Value Reference Range Interpretation Comments APPEARANCE (test code = Clear Clear 3423786353) COLOR (test code = Yellow Yellow 0236864017) PH (test code = 4.8-8.0 7448050395) SP GRAVITY (test code = 1.003-1.030 2201436928) GLU U QUAL (test code = 500 mg/dL Normal A 2609022174) BLOOD (test code = Negative Negative 2717612518) KETONES (test code = 20 mg/dL Negative A 7360061061) PROTEIN (test code = Negative Negative 2887-8) UROBILIN (test code = Normal Normal 4127460121) BILIRUBIN (test code = Negative Negative 2778578223) NITRITE (test code = Negative Negative 2560003931) LEUK RYAN (test code = Negative Negative 4036717664) RBC/HPF (test code = <1 See_Comment [Autom ated message] 5630121531) The system Pickie generated this result transmit ronan reference range : 0 - 3 HPF. The refe rence range was not u sed to interpret th is result as normal/abnormal . WBC/HPF (test code = See_Comment [Autom ated message] 0728204660) The system Pick[employer] generated this result transmit ronan reference range : 0 - 5 HPF. The refe rence range was not u sed to interpret th is result as normal/abnormal . BACTERIA (test code = Negative Negative 3175195733) MUCOUS (test code = Slight Negative LPF A 2261216791) Lab Interpretation (test Abnormal code = 05001-3) [facility] HospitalACTIVATED PARTIAL THRMPLAS [id number] 13:45:00 Test Item Value Reference Range Interpretation Comments APTT Patient (test code = See_Comment [ Automated message] 3173-2) The system Pickie generated this result transmitted ref erence range: 26 - 36 Seconds. The re ference range was not u sed to interpret this result as normal/abnor mal. Lab Interpretation (test Normal code = 57510-7) [facility] HospitalPOCT GLUCOSE (AUTOMATED)2020-08-21 13:45:00 Test Item Value Reference Range Interpretation Comments POCT GLU (test code = 6523332071) 246 mg/dL 70-110 H Lab Interpretation (test code = Abnormal 04709-1) [facility] HospitalHIV 1/2 AG-AB WITH [id number] 12:32:00 Test Item Value Reference Range Interpretation Comments HIV Negative Negative Semi-quantitative (test code = 12290-6) JAMES (test code = Non-reactive for HIV-1 JAMES) antigen and HIV-1/HIV-2 antibodies. ?No laboratory evidence of HIV infection. ?Repeat in 2-4 weeks if acute HIV infection is suspected. [facility] WITH [id number] 12:18:00 Test Item Value Reference Range Interpretation [...] RDW-SD (test code = 44.4 fL 38.5-51.6 93093-3) RDW-CV (test code = 14.5 % 12.1-15.4 788-0) PLT (test code = See_Comment H [Automated 777-3) message] The sy stem which generated this result transmitted reference range : 150 - 328 10*3/ ?L. The reference r torito was not used to interpret this result as normal/abnormal . MPV (test code = 8.5 fL 9.8-13 L 38510-0) NRBC/100 WBC (test See_Comment [Automat ed code = 9687808522) message] The system which generated this result transmitted reference range : 0.0 - 10.0 /100 WBCs. The refer ence range was not u sed to interpret th is result as normal/abnormal . NRBC x10^3 (test code <0.01 See_Comment [Auto mated = 5990278676) message] The s ystem which generated this result transmitted reference range : 10*3/?L. The reference range was not used to interpret this result as normal/abnormal . GRAN MAT (NEUT) % 90.4 % (test code = 770-8) IMM GRAN % (test code 1.30 % = 5227271557) LYMPH % (test code = 7.1 % 736-9) MONO % (test code = 0.5 % 5905-5) EOS % (test code = 0.1 % 713-8) BASO % (test code = 0.6 % 706-2) GRAN MAT x10^3(ANC) 7.74 10*3/uL 1.99-6.95 H (test code = 8993212712) IMM GRAN x10^3 (test 0.11 10*3/uL 0-0.06 H code = 6611473742) LYMPH x10^3 (test code 0.61 10*3/uL 1.09-3.23 L = 731-0) MONO x10^3 (test code 0.04 10*3/uL 0.36-1.02 L = 742-7) EOS x10^3 (test code = <0.03 0.06-0.53 L 711-2) BASO x10^3 (test code 0.05 10*3/uL 0.01-0.09 = 704-7) POLYCHROMASIA (test 2+ See_Comment [Automa ronan code = 49724-8) message] The system which generated this result transmitted reference range : 2+. The referen ce range was not u sed to interpret th is result as normal/abnormal . BANDS (test code = Increased A 5690245730) Lab Interpretation Abnormal (test code = 57468-1) [facility] HospitalPROCALCITONIN2020-11-09 11:48:00 Test Item Value Reference Range Interpretation Comments Procalcitonin (test 0.36 ng/mL <0.07 H code = 1625483015) JAMES (test code = JAMES) INTERPRETATION OF [...] biotics/default.asp Lab Interpretation Abnormal (test code = 37597-7) [facility] HospitalLAPAATE [id number] 10:53:00 Test Item Value Reference Range Interpretation Comments LDH (test code = 1087282812) 351 U/L 300-600 Lab Interpretation (test code = Normal 42325-9) [facility] HospitalSEDIMENTATION [id number] 10:07:00 Test Item Value Reference Range Interpretation Comments ESR (test code = See_Comment H [Automated message] 3959031262) The system Pickie generated this result transmitted ref erence range: 0 - 10 m m/HR. The reference r torito was not used to interpret this result as normal/abnor mal. Lab Interpretation (test Abnormal code = 53615-3) [facility] HospitalPOPA GLUCOSE (AUTOMATED)2020-08-21 09:45:00 Test Item Value Reference Range Interpretation Comments POCT GLU (test code = 8232908646) 287 mg/dL 70-110 H Lab Interpretation (test code = Abnormal 67756-9) [facility] HospitalGlycosylated Hemoglobin (A1C)2020-08-21 09:29:00 Test Item Value Reference Range Interpretation Comments HGB A1C (test code = 4548-4) 9.8 % 4-6 H Lab Interpretation (test code = Abnormal 61565-9) [facility] HospitalCOVID-19 (ID NOW RAPID TESTING)2020-08-21 09:13:00 Test Item Value Reference Range Interpretation Comments SARS-CoV-2 Rapid ID NOW Not Detected Not Detected (test code = 78783-3) JAMES (test code = JAMES) ID NOW COVID-19 Assay is an isothermal nucleic acid amplification test intended for the qualitative detection of nucleic acid from SARS-CoV-2 viral RNA in nasopharyngeal ([employer]IST) specimens. It is used under Emergency Use [...] indicated. Lab Interpretation Normal (test code = 67385-4) [facility] HospitalProthrombin Time / [id number] 08:59:00 Test Item Value Reference Range Interpretation Comments PROTIME PATIENT (test See_Comment H [Auto mated message] code = 5964-2) The system [employer] generated this result transmitted ref erence range: 10.1 - 1 2.6 Seconds. The reference range was not used to int erpret this result as normal/abnormal . INR (test code = 6301-6) Nor mal INR <1.1; Warfarin Therap eutic range 2.0 to 3. 0 or 2.5 to 3.5, dep ending upon the indica tions. Lab Interpretation (test Abnormal code = 62956-7) [facility] HospitalaPTT2020-11-09 08:59:00 Test Item Value Reference Range Interpretation Comments APTT Patient (test code = See_Comment [ Automated message] 3173-2) The system [employer] generated this result transmitted ref erence range: 26 - 36 Seconds. The re ference range was not u sed to interpret this result as normal/abnor mal. Lab Interpretation (test Normal code = 95395-1) [facility]NA, K, CL, CO2, GLUCOSE, BUN, CREATININE, CA)2020-08-21 08:52:00 Test Item Value Reference Range Interpretation Comments NA (test code = 136 mmol/L 135-145 1090840811) K (test code = 4.3 mmol/L 3.5-5 3867322524) CL (test code = 104 mmol/L 98-108 7701495346) CO2 TOTAL (test code = 24 mmol/L 23-31 6411422617) AGAP (test code = 2-16 6434825917) BUN (test code = 8 mg/dL 7-23 4983254883) GLUCOSE (test code = 308 mg/dL 70-110 H 0376152089) CREATININE (test code = 0.72 mg/dL 0.6-1.25 8285662330) CALCIUM (test code = 7.8 mg/dL 8.6-10.6 L 5005515587) eGFR Calculation mL/min/1.73m2 (Non-) (test code = 8042812384) eGFR Calculation mL/min/1.73m2 () (test code = 3351625632) JAMES (test code = JAMES) Association of [...] tests). Lab Interpretation Abnormal (test code = 65859-2) [facility]97254[facility] (ALB,T.PRO,BILI T,BU/BC,ALT,AST,ALK PHOS)2020-08-21 08:52:00 Test Item Value Reference Range Interpretation Comments TOTAL BILI (test code = 5225151149) 0.8 mg/dL 0.1-1.1 BILI UNCON (test code = 5228175952) 0.3 mg/dL 0.1-1.1 BILI CONJ (test code = 3477373391) 0.0 mg/dL 0-0.3 T PROTEIN (test code = 8003501564) 5.7 g/dL 6.3-8.2 L ALBUMIN (test code = 7773918058) 2.7 g/dL 3.5-5 L ALK PHOS (test code = 8818505737) 245 U/L 34-122 H ALTv (test code = 1742-6) 37 U/L 5-50 AST(SGOT) (test code = 4479602147) 43 U/L 13-40 H Lab Interpretation (test code = Abnormal 78430-6) [facility]
== END 2022-04-26 12:30 | disposition home or self-care (01) ==
LOC: ER 04:12 → ERHOLD 06:40 → INTOOBSV 06:40 → 2ND 19:59
PROVIDERS: ADMIT Internal Medicine; ATTEND Internal Medicine
DX: N39.0 Urinary tract infection, site not specified (principal); E11.9 Type 2 diabetes mellitus without complications; N48.89 Other specified disorders of penis; U07.1 COVID-19; I48.91 Unspecified atrial fibrillation; G89.29 Other chronic pain; M54.9 Dorsalgia, unspecified; K85.90 Acute pancreatitis without necrosis or infection, unspecified; I89.0 Lymphedema, not elsewhere classified; R00.0 Tachycardia, unspecified; M19.90 Unspecified osteoarthritis, unspecified site; F41.9 Anxiety disorder, unspecified; Z98.890 Other specified postprocedural states; Z74.01 Bed confinement status; Z28.310 Unvaccinated for COVID-19; Z88.3 Allergy status to other anti-infective agents; Z88.5 Allergy status to narcotic agent; Z88.8 Allergy status to other drugs, medicaments and biological substances; Z90.49 Acquired absence of other specified parts of digestive tract; Z82.0 Family history of epilepsy and other diseases of the nervous system; R20.8 Other disturbances of skin sensation
CPT/HCPCS: 36415; 71045; 80053; 81003; 81015; 82947; 83605; 85025; 85610; 85730; 87040; 87077; 87086; 87088; 87186; 93005; 96361; 96365; 96375; 99285; G0378; J2405; J3370; J7030; J7040; U0003

== ENCOUNTER 2022-04-28 17:04 | Observation (INO) | payer OTHER ==
[2022-04-28] MEDS ORDERED: PROMETHAZINE INJ 25 MG/ML AMP ONE (17:17)
[2022-04-28] MEDS ORDERED: NA CHLORIDE 0.9% 1,000 ML ONE (17:33)
[2022-04-28] MEDS ORDERED: PANTOPRAZOLE 40 MG INJ ONE ×3 (17:34→18:08)
[2022-04-28 17:46] LABS: Absolute Lymphocytes (CBC) 1.1 K/uL (0.7-4.9); Hematocrit 38.1 % (39.6-49.0); Lymphocytes % 12.3 % (15.3-44.8); MCV 83.5 fL (80-100); MPV 6.3 fL (7.6-11.3); RBC Red Blood Cell Count 4.57 M/uL (4.33-5.43)
[2022-04-28 17:47] LABS: Protime INR 1.14
--- NOTE | 2022-04-28 18:04 | RAD REPORT ---
EXAM DESCRIPTION: RAD - Chest Single View - 04/28/2022 5:52 pm CLINICAL HISTORY: ABDOMINAL DISTENTION Chest pain. COMPARISON: Chest Single View dated 04/25/2022; Chest Single View dated 12/03/2021; Chest Single View dated 03/11/2021; Chest Single View dated 03/10/2021 FINDINGS: Portable technique limits examination quality. The lungs are mildly emphysematous but grossly clear. The heart is normal in size. No displaced fract ures. IMPRESSION: Mild COPD.
[2022-04-28 18:06] LABS: Albumin 3.2 g/dL (3.4-5.0); Bilirubin Direct 0.2 mg/dL (0-0.2); Bilirubin Total 0.4 mg/dL (0.2-1.0); Potassium 3.4 mmol/L (3.5-5.1); Protein, Total 6.7 g/dL (6.4-8.2); Troponin High Sensitivity 7.2 pg/mL (<58.9)
[2022-04-28] MEDS ORDERED: NA CHLORIDE 0.9% 250 ML ONE (18:09)
--- NOTE | 2022-04-28 18:51 | RAD REPORT ---
EXAM DESCRIPTION: CT - Abdomen Pelvis Wo Contrast - 04/28/2022 6:42 pm CLINICAL HISTORY: Abdominal pain. Epigastric pain COMPARISON: Abdomen Pelvis Wo Contrast dated 06/11/2021 TECHNIQUE: CT imaging of the abdomen and pelvis was performed without contrast. Solid organ, bowel a nd vascular assessment is limited due to lack of IV and oral contrast. All CT scans are performed using dose optimization technique as appropriate and may include automated exposure control or mA/KV adjustment according to patient size. FINDINGS: Mild atelectasis is seen in the right lung base with trace right pleural fluid. The liver, spleen, adrenal glands are within normal limits for a limited non-contrast examination.The majority of the pancreatic parenchyma appears absent or highly atrophic. Renal cysts bilaterally. No bowel obstruction, free air, free fluid or abscess. Significant fecal retention is noted. The appe ndix is normal. Moderate lumbar degenerative changes. IMPRESSION: No acute intra-abdominal or pelvic findings. Significant fecal retention. A limited non-contrast examination was performed as detailed.
--- NOTE | 2022-04-28 18:56 | ER ---
Nurse's Notes [facility] Name: Kiel Ngo Age: 71 yrs Sex: Male : 1950 Arrival Date: 04/28/2022 Time: 17:06 Bed 25 Private MD: Diagnosis: Acute gastritis with bleeding;Tachycardia, unspecified;Essential (primary) hypertension;Anemia, unspecified;Coronavirus infection, unspecified;SARS-associated coronavirus as the cause of diseases classified elsewhere Presentation: 04/28 17:16 Chief complaint: Patient states: C/O vomiting coffee ground emesis since 1400 today. Pt ld1 denies abdominal pain. Coronavirus screen: Client presents with at least one sign or symptom that may indicate coronavirus-19. Standard/surgical mask placed on the client. Ebola Screen: No symptoms or risks identified at this time. Initial Sepsis Screen: Does the patient meet any 2 criteria? No. Patient's initial sepsis screen is negative. Does the patient have a suspected source of infection? No. Patient's initial sepsis screen is negative. Risk Assessment: Do you want to hurt yourself or someone else? Patient reports no desire to harm self or others. Onset of symptoms was April 28, 2022. 17:16 Method Of Arrival: EMS: [facility] ld1 17:16 Acuity: JOZEF 3 ld1 Triage Assessment: 17:17 General: Appears in no apparent distress. comfortable, Behavior is calm, cooperative, ld1 appropriate for age. Pain: Denies pain. EENT: No signs and/or symptoms were reported regarding the EENT system. Neuro: Level of Consciousness is awake, alert, obeys commands, Oriented to person, place, time, situation. Cardiovascular: Capillary refill < 3 seconds Patient's skin is warm and dry. Rhythm is sinus tachycardia. Respiratory: Airway is patent Respiratory effort is even, unlabored. GI: Abdomen is round non-distended. GI: No signs and/or symptoms were reported involving the gastrointestinal system. Pt is actively vomiting coffee ground emesis Reports nausea, vomiting. : No signs and/or symptoms were reported regarding the genitourinary system. Derm: No signs and/or symptoms reported regarding the dermatologic system. Musculoskeletal: No signs and/or symptoms reported regarding the musculoskeletal system. Historical: - Allergies: 17:17 Demerol; ld1 17:17 metformin; ld1 17:17 Morphine; ld1 - PMHx: 17:17 Atrial fibrillation; chronic back pain; Chronic right leg pain; neuropathy; ld1 - PSHx: 17:17 back sx; PANCREAS SX; R. Ankle SX; ld1 - Immunization history:: Adult Immunizations up to date, Client reports receiving the 2nd dose of the Covid vaccine. - Social history:: Smoking status: Patient denies any tobacco usage or history of. Patient/guardian denies using alcohol. - Family history:: not pertinent. Screenin:19 Abuse screen: Denies threats or abuse. Denies injuries from another. Nutritional ld1 screening: No deficits noted. Tuberculosis screening: No symptoms or risk factors identified. Fall Risk None identified. Assessment: 17:19 Reassessment: See triage assessment. ld1 Vital Signs: 17:16 BP 187 / 104; Pulse 141; Resp 27; Temp 97.8(TE); Pulse Ox 95% on R/A; Weight 86.18 kg; ld1 Height 5 ft. 11 in. (180.34 cm); Pain 0/10; 18:27 BP 146 / 83; Pulse 123; Resp 17; Pulse Ox 97% ; ld1 19:30 BP 141 / 88; Pulse 115; Resp 24; Pulse Ox 98% on R/A; eh3 20:19 BP 145 / 98; Pulse 96; Resp 19; Pulse Ox 99% on R/A; eh3 17:16 Body Mass Index 26.50 (86.18 kg, 180.34 cm) ld1 ED Course: 17:06 Patient arrived in ED. eb 17:06 Stu Banerjee MD is Attending Physician. chetan 17:16 Danna Moreno, DIEGO is Primary Nurse. ld1 17:17 Triage completed. ld1 17:17 Arm band placed on right wrist. ld1 17:19 Patient has correct armband on for positive identification. Placed in gown. Bed in low ld1 position. Call light in reach. Side rails up X2. manager books on. Pulse ox on. NIBP on. Door closed. Noise minimized. Warm blanket given. 17:19 No provider procedures requiring assistance completed. Maintain EMS IV. Dressing ld1 intact. Good blood return noted. Site clean \\T\\ dry. Gauge \\T\\ site: 20G RFA. 17:34 SARS-COV-2 RT PCR (Document "Date of Onset" if Symptomatic) Sent. ld1 17:54 XRAY Chest (1 view) In Process Unspecified. EDMS 18:39 SARS-COV-2 RT PCR (Document "Date of Onset" if Symptomatic) Sent. ld1 18:44 CT Abd/Pelvis - Without Contrast In Process Unspecified. EDMS 18:55 Isai Snow MD is Hospitalizing Provider. [facility] 04/29 00:06 Primary Nurse role handed off by Danna Moreno, DIEGO tw 00:06 Niesha Hsieh is Primary Nurse. tw5 19:00 Patient admitted, IV remains in place. vc1 Administered Medications: 04/28 19:14 Discontinued: NS 0.9% 1000 ml IV at 125 ml/hr continuous [facility] 17:20 Drug: NS 0.9% 500 ml Route: IV; Rate: bolus; Site: right forearm; [facility] 04/29 00:10 Follow up: IV Status: Completed infusion; IV Intake: 500ml [facility] 04/28 17:20 Drug: Phenergan (promethazine) 12.5 mg Route: IVP; Site: right forearm; 1 04/29 00:11 Follow up: Response: No adverse reaction [facility] 04/28 17:25 Drug: ProTONIX (pantoprazole) 40 mg Route: IVP; Site: right antecubital; [facility] 04/29 00:11 Follow up: Response: No adverse reaction [facility] 04/28 18:15 Drug: ProTONIX (pantoprazole) 40 mg Route: IVP; Site: right antecubital; [facility] 04/29 00:09 Follow up: Response: No adverse reaction [facility] 04/28 18:20 Drug: ProTONIX (pantoprazole) 8 mg/hr Route: IV; Rate: 25 ml/hr; Site: right 3 antecubital; 04/29 00:10 Follow up: IV Status: Infusion continued upon admission [facility] 04/28 19:12 Drug: NS 0.9% 1000 ml Route: IV; Rate: 125 ml/hr; Site: right forearm; 1 19:13 Drug: NS 0.9% 500 ml Route: IV; Rate: bolus; Site: right forearm; 1 04/29 00:10 Follow up: IV Status: Completed infusion; IV Intake: 500ml 04/28 20:00 Drug: NS 0.9% with KCl 20 mEq/L 1000 ml Route: IV; Rate: 100 ml/hr; Site: right forearm;1 04/29 00:10 Follow up: IV Status: Infusion continued upon admission 04/28 20:01 Drug: Lopressor (metoprolol) 5 mg Route: IVP; Site: right antecubital; [facility] 04/29 00:10 Follow up: Response: No adverse reaction 04/28 20:01 Drug: Lopressor (metoprolol TARTRATE) 50 mg Route: PO; [facility] 04/29 00:10 Follow up: Response: No adverse reaction 04/28 20:01 Drug: Dulcolax (bisacodyl) Suppository 10 mg Route: NC; [facility] 04/29 00:10 Follow up: Response: No adverse reaction [facility] 04/28 20:01 Drug: Lactulose 30 grams Volume: 45 ml; Route: PO; [facility] 04/29 00:09 Follow up: Response: No adverse reaction Medication: 04/28 17:19 VIS not applicable for this client. ld1 Intake: 04/29 00:10 IV: 500ml; Total: 500ml. tw 00:10 IV: 500ml; Total: 1000ml. Outcome: 04/28 18:56 Decision to Hospitalize by Provider. [facility] 04/29 19:00 Admitted to ER Hold. Please see [facility] for further documentation. vc1 Condition: good Instructed on the need for admit. 04/30 09:52 Patient left the ED. [email or web address] Signatures: Dispatcher [employer] EDStu Allen MD MD cha Leal, Jahala RN RN [id number] Shannan Moraes Lauren, RN RN [email or web address] Niesha Hsieh 5 Coral Sumner RN RN 1 Cher Nguyen [facility]
--- NOTE | 2022-04-28 18:57 | EDPHYS ---
Physician Documentation [facility] Name: Kiel Ngo Age: 71 yrs Sex: Male : 1950 Arrival Date: 04/28/2022 Time: 17:06 Bed 25 Private MD: LAURIE Physician Stu Banerjee HPI: 04/28 17:51 This 71 yrs old Male presents to ER via EMS with complaints of abdominal chetan pain, vomiting, dark brown emesis. 17:51 The patient presents with abdominal pain in the epigastric area. Onset: The chetan symptoms/episode began/occurred 1 day(s) ago. The patient presents to the emergency department with nausea, vomiting, that is intermittent. Onset: The symptoms/episode began/occurred today. Possible causes: unknown. The symptoms are aggravated by nothing. The symptoms are alleviated by nothing. The patient presents to the emergency department vomiting blood, dark, no blood. Abdominal pain: described as crampy. Modifying factors: The symptoms are alleviated by nothing, the symptoms are aggravated by nothing. Associated signs and symptoms: Pertinent positives: vomiting. Historical: - Allergies: 17:17 Demerol; ld1 17:17 metformin; ld1 17:17 Morphine; ld1 - PMHx: 17:17 Atrial fibrillation; chronic back pain; Chronic right leg pain; neuropathy; ld1 - PSHx: 17:17 back sx; PANCREAS SX; R. Ankle SX; ld1 - Immunization history:: Adult Immunizations up to date, Client reports receiving the 2nd dose of the Covid vaccine. - Social history:: Smoking status: Patient denies any tobacco usage or history of. Patient/guardian denies using alcohol. - Family history:: not pertinent. ROS: 17:51 Constitutional: Negative for fever, chills, and weight loss, Eyes: Negative for injury, chetan pain, redness, and discharge, ENT: Negative for injury, pain, and discharge, Neck: Negative for injury, pain, and swelling, Cardiovascular: Negative for chest pain, palpitations, and edema, Respiratory: Negative for shortness of breath, cough, wheezing, and pleuritic chest pain, Back: Negative for injury and pain, : Negative for injury, bleeding, discharge, and swelling, MS/Extremity: Negative for injury and deformity, Skin: Negative for injury, rash, and discoloration, Neuro: Negative for headache, weakness, numbness, tingling, and seizure, Psych: Negative for depression, anxiety, suicide ideation, homicidal ideation, and hallucinations, Allergy/Immunology: Negative for hives, rash, and allergies, Endocrine: Negative for neck swelling, polydipsia, polyuria, polyphagia, and marked weight changes, Hematologic/Lymphatic: Negative for swollen nodes, abnormal bleeding, and unusual bruising. 17:51 Abdomen/GI: Positive for abdominal pain, nausea and vomiting, vomiting. Exam: 17:51 Constitutional: This is a well developed, well nourished patient who is awake, alert, chetan and in no acute distress. Head/Face: Normocephalic, atraumatic. Eyes: Pupils equal round and reactive to light, extra-ocular motions intact. Lids and lashes normal. Conjunctiva and sclera are non-icteric and not injected. Cornea within normal limits. Periorbital areas with no swelling, redness, or edema. ENT: Nares patent. No nasal discharge, no septal abnormalities noted. Tympanic membranes are normal and external auditory canals are clear. Oropharynx with no redness, swelling, or masses, exudates, or evidence of obstruction, uvula midline. Mucous membranes moist. Neck: Trachea midline, no thyromegaly or masses palpated, and no cervical lymphadenopathy. Supple, full range of motion without nuchal rigidity, or vertebral point tenderness. No Meningismus. Chest/axilla: Normal chest wall appearance and motion. Nontender with no deformity. No lesions are appreciated. Respiratory: Lungs have equal breath sounds bilaterally, clear to auscultation and percussion. No rales, rhonchi or wheezes noted. No increased work of breathing, no retractions or nasal flaring. Abdomen/GI: Soft, non-tender, with normal bowel sounds. No distension or tympany. No guarding or rebound. No evidence of tenderness throughout. Back: No spinal tenderness. No costovertebral tenderness. Full range of motion. Male : Normal genitalia with no discharge or lesions. Skin: Warm, dry with normal turgor. Normal color with no rashes, no lesions, and no evidence of cellulitis. MS/ Extremity: Pulses equal, no cyanosis. Neurovascular intact. Full, normal range of motion. Neuro: Awake and alert, GCS 15, oriented to person, place, time, and situation. Cranial nerves II-XII grossly intact. Motor strength 5/5 in all extremities. Sensory grossly intact. Cerebellar exam normal. Normal gait. Psych: Awake, alert, with orientation to person, place and time. Behavior, mood, and affect are within normal limits. 17:51 Cardiovascular: Rate: tachycardic, actual rate is 141 bpm, Rhythm: regular, Pulses: Pulses are 4+ in bilateral radial, brachial, femoral, popliteal, posterior tibial and and dorsalis pedis arteries.. Heart sounds: normal, normal S1and S2, no S3 or S4, no murmur, no rub, no gallop, Edema: is not appreciated, JVD: is not appreciated. 17:51 ECG was reviewed by the Attending Physician. 19:12 Abdomen/GI: Palpation: abdomen is soft and non-tender, Rectal exam: Prostate: normal, chetan rectal tone normal, Stool: normal, guaiac negative, hemorrhoid(s), are not appreciated, mass, is not appreciated, swelling, is not appreciated, tenderness, is not appreciated, fecal impaction, that is mild, Liver: no appreciated palpable abnormalities, Hernia: not appreciated, Gastroccult positive , no coffee, only brown,guaiac positive. Vital Signs: 17:16 BP 187 / 104; Pulse 141; Resp 27; Temp 97.8(TE); Pulse Ox 95% on R/A; Weight 86.18 kg; ld1 Height 5 ft. 11 in. (180.34 cm); Pain 0/10; 18:27 BP 146 / 83; Pulse 123; Resp 17; Pulse Ox 97% ; ld1 19:30 BP 141 / 88; Pulse 115; Resp 24; Pulse Ox 98% on R/A; eh3 20:19 BP 145 / 98; Pulse 96; Resp 19; Pulse Ox 99% on R/A; eh3 17:16 Body Mass Index 26.50 (86.18 kg, 180.34 cm) ld1 MDM: 17:06 Patient medically screened. chetan 17:55 Differential diagnosis: Nonspecific abd pain, gastritis, pancreatitis, diverticulitis, chetan viral gastroenteritis, gastroenteritis, varices, bowel obstruction, cholecystitis, Cholelithiasis, diverticulitis, gastritis, gastroesophageal reflux disease, GI Bleed, Irritable bowel syndrome, Mesenteric ischemia or infarction, non-specific abd pain, pancreatitis, Peptic Ulcer Disease, Perf. Duodenal Ulcer, urinary tract infection. Data reviewed: vital signs, nurses notes, EMS record, lab test result(s), EKG, radiologic studies, CT scan, plain films. Data interpreted: engine monitor: rate is 141 beats/min, rhythm is regular, Pulse oximetry: on room air is 95 %. Test interpretation: by ED physician or midlevel provider: ECG, plain radiologic studies. Counseling: I had a detailed discussion with the patient and/or guardian regarding: the historical points, exam findings, and any diagnostic results supporting the discharge/admit diagnosis, lab results, radiology results. 04/28 17:13 Order name: Basic Metabolic Panel; Complete Time: 18:14 [facility] 04/28 17:13 Order name: CBC with Diff; Complete Time: 18:02 [facility] 04/28 17:13 Order name: LFT's; Complete Time: 18:14 [facility] 04/28 17:13 Order name: Magnesium; Complete Time: 18:14 [facility] 04/28 17:13 Order name: NT PRO-BNP; Complete Time: 18:14 [facility] 04/28 17:13 Order name: PT-INR; Complete Time: 18:02 [facility] 04/28 17:13 Order name: Troponin HS; Complete Time: 18:14 [facility] 04/28 17:13 Order name: Lipase; Complete Time: 18:14 [facility] 04/28 17:13 Order name: Type And Screen; Complete Time: 18:33 [facility] 04/28 17:14 Order name: SARS-COV-2 RT PCR (Document "Date of Onset" if Symptomatic); Complete Time: [facility] :04/28 18:49 Order name: ABO/RH no charge; Complete Time: 19:19 [facility] 04/28 21:07 Order name: Potassium [facility] 04/29 02:41 Order name: CBC with Automated Diff [facility] 04/29 02:49 Order name: Basic Metabolic Panel [facility] 04/28 17:13 Order name: XRAY Chest (1 view); Complete Time: 18:14 [facility] 04/28 17:50 Order name: CT Abd/Pelvis - Without Contrast; Complete Time: 19:19 [facility] 04/29 02:49 Order name: NT PRO-BNP [facility] 04/29 13:11 Order name: Hemoglobin [facility] 04/29 13:11 Order name: Hematocrit [facility] 04/29 19:16 Order name: Hemoglobin [facility] 04/29 19:16 Order name: Hematocrit [facility] 04/30 00:30 Order name: Hemoglobin [facility]SC 04/30 00:30 Order name: Hematocrit [facility] 04/28 17:13 Order name: EKG; Complete Time: 17:13 [facility] 04/28 17:13 Order name: Cardiac monitoring; Complete Time: 17:21 04/28 17:13 Order name: EKG - Nurse/Tech; Complete Time: 17:39 [facility] 04/28 17:13 Order name: IV Saline Lock; Complete Time: 17:34 [facility] 04/28 17:13 Order name: Labs collected and sent; Complete Time: 17:34 [facility] 04/28 17:13 Order name: O2 Per Protocol; Complete Time: 17:21 [facility] 04/28 17:13 Order name: O2 Sat Monitoring; Complete Time: 17:21 [facility] EC:51 Rate is 126 beats/min. Rhythm is regular. QRS [place] is Normal. IN interval is normal. [facility] QRS interval is normal. QT interval is normal. No Q waves. T waves are Normal. No ST changes noted. Clinical impression: Sinus tachycardia and No evidence of ischemia. Interpreted by me. Reviewed by me. Administered Medications: 19:14 Discontinued: NS 0.9% 1000 ml IV at 125 ml/hr continuous [facility] 17:20 Drug: NS 0.9% 500 ml Route: IV; Rate: bolus; Site: right forearm; 1 04/29 00:10 Follow up: IV Status: Completed infusion; IV Intake: 500ml 04/28 17:20 Drug: Phenergan (promethazine) 12.5 mg Route: IVP; Site: right forearm; 1 04/29 00:11 Follow up: Response: No adverse reaction 04/28 17:25 Drug: ProTONIX (pantoprazole) 40 mg Route: IVP; Site: right antecubital; 3 04/29 00:11 Follow up: Response: No adverse reaction 04/28 18:15 Drug: ProTONIX (pantoprazole) 40 mg Route: IVP; Site: right antecubital; 3 04/29 00:09 Follow up: Response: No adverse reaction 04/28 18:20 Drug: ProTONIX (pantoprazole) 8 mg/hr Route: IV; Rate: 25 ml/hr; Site: right eh3 antecubital; 04/29 00:10 Follow up: IV Status: Infusion continued upon admission [facility] 04/28 19:12 Drug: NS 0.9% 1000 ml Route: IV; Rate: 125 ml/hr; Site: right forearm; 1 19:13 Drug: NS 0.9% 500 ml Route: IV; Rate: bolus; Site: right forearm; [facility] 04/29 00:10 Follow up: IV Status: Completed infusion; IV Intake: 500ml 04/28 20:00 Drug: NS 0.9% with KCl 20 mEq/L 1000 ml Route: IV; Rate: 100 ml/hr; Site: right forearm;[facility] 04/29 00:10 Follow up: IV Status: Infusion continued upon admission 04/28 20:01 Drug: Lopressor (metoprolol) 5 mg Route: IVP; Site: right antecubital; [facility] 04/29 00:10 Follow up: Response: No adverse reaction [facility] 04/28 20:01 Drug: Lopressor (metoprolol TARTRATE) 50 mg Route: PO; [facility] 04/29 00:10 Follow up: Response: No adverse reaction [facility] 04/28 20:01 Drug: Dulcolax (bisacodyl) Suppository 10 mg Route: IN; [facility] 04/29 00:10 Follow up: Response: No adverse reaction [facility] 04/28 20:01 Drug: Lactulose 30 grams Volume: 45 ml; Route: PO; [facility] 04/29 00:09 Follow up: Response: No adverse reaction [facility] Disposition Summary: 04/28/22 18:56 Hospitalization Ordered Hospitalization Status: Observation chetan Provider: Isai Snow chetan Condition: Stable chetan Problem: new chetan Symptoms: have improved chetan Bed/Room Type: Standard chetan [facility]04[facility]28[facility]22 19:06[facility] Room Assignment: ERHOLD-(04/28/22 19:06) Diagnosis - Acute gastritis with bleeding chetan - Tachycardia, unspecified chetan - Essential (primary) hypertension chetan - Anemia, unspecified chetan - Coronavirus infection, unspecified chetan - SARS-associated coronavirus as the cause of diseases classified elsewhere chetan Forms: - Medication Reconciliation Form chetan - SBAR form chetan Signatures: Dispatcher [employer] EDMS Beverly, Rufina, Stu Keane RN, MD MD cha Dibbern, Lauren, RN RN ld1 Patrick, Cher 3 Niesha Hsieh 5 Corrections: (The following items were deleted from the chart) 04/28 19: 18:56 Telemetry/MedSurg (observation) chetan pink 18:56 chetan pink
[2022-04-28] MEDS ORDERED: METOPROLOL TAR 25 MG TAB ONE (19:37)
[2022-04-28] MEDS ORDERED: BISACODYL 10 MG RECTAL SUPP ONE (19:37)
[2022-04-28] MEDS ORDERED: METOPROLOL TARTRATE 5 MG/5 ML INJ IV ONE (19:38)
[2022-04-28] MEDS ORDERED: KCL 20 MEQ/100 mL IVPB 0 ML IV ONE (19:38)
[2022-04-28] MEDS ORDERED: LACTULOSE 20 GM/30 ML UCUP ONE (19:39)
[2022-04-28] MEDS ORDERED: NS KCL 20MEQ 1,000 ML IV ONE (19:48)
[2022-04-28] MEDS: PANTOPRAZOLE INJ 80 MG in NA CHLORIDE 0.9% 250 ML IV SCH (20:14)
[2022-04-28] MEDS ORDERED: MORPHINE 4 MG/ML SYR IV PRN (20:14)
[2022-04-28] MEDS ORDERED: ALBUTEROL 2.5 MG/3 ML NEB SOL NEB PRN (20:14)
[2022-04-28] MEDS ORDERED: ACETAMINOPHEN 500 MG TAB PO PRN (20:14)
[2022-04-28] MEDS ORDERED: IPRATROPIUM BROM 0.5MG/2.5ML NEB PRN (20:14)
[2022-04-28] MEDS: NS KCL 20MEQ 20 MEQ/1,000 ML BAG IV SCH (20:14)
[2022-04-28] MEDS: METOPROLOL TAR 50 MG TAB PO SCH (20:17)
[2022-04-28] MEDS: TIZANIDINE 4 MG TABLET PO SCH (21:00)
[2022-04-29 02:38] LABS: Absolute Lymphocytes (CBC) 1.3 K/uL (0.7-4.9); Hematocrit 33.4 % (39.6-49.0); Lymphocytes % 19.4 % (15.3-44.8); MCV 82.6 fL (80-100); MPV 6.2 fL (7.6-11.3); RBC Red Blood Cell Count 4.04 M/uL (4.33-5.43)
[2022-04-29 02:49] LABS: Potassium 4.1 mmol/L (3.5-5.1)
[2022-04-29] MEDS: PANTOPRAZOLE INJ 80 MG in NA CHLORIDE 0.9% 250 ML IV SCH ×2 (06:47→15:33)
[2022-04-29] MEDS: NS KCL 20MEQ 20 MEQ/1,000 ML BAG IV SCH ×2 (06:47→15:35)
[2022-04-29] MEDS ORDERED: NA CHLORIDE 0.9% 250 ML ONE (06:50)
[2022-04-29] MEDS ORDERED: PANTOPRAZOLE 40 MG INJ ONE (06:50)
[2022-04-29] MEDS ORDERED: NS KCL 20MEQ 1,000 ML IV ONE ×2 (06:51→15:42)
[2022-04-29] MEDS: ONDANSETRON 4 MG/2 ML VIAL IV PRN ×3 (07:15→19:45)
[2022-04-29] MEDS ORDERED: ONDANSETRON 4 MG/2 ML VIAL ONE ×3 (07:18→19:44)
[2022-04-29] MEDS: METOPROLOL TAR 50 MG TAB PO SCH ×2 (09:00→21:00)
[2022-04-29] MEDS: TIZANIDINE 4 MG TABLET PO SCH ×2 (09:00→21:00)
[2022-04-29] MEDS ORDERED: HYDROMORPHONE HCL 0.5 MG/0.5 ML INJ IV PRN (09:09)
[2022-04-29] MEDS ORDERED: HYDROMORPHONE HCL 0.5 MG/0.5 ML INJ ONE (09:30)
[2022-04-29] MEDS ORDERED: HYDROMORPHONE ORAL 2 MG TAB PO PRN (09:33)
--- NOTE | 2022-04-29 09:34 | P.HP ---
Certification for Inpatient Patient admitted to: Observation With expected LOS: <2 Midnights Patient will require the following post-hospital care: None Practitioner: I am a practitioner with admitting privileges, knowledge of patient current condition, hospital course, and medical plan of care. Services: Services provided to patient in accordance with Admission requirements found in Title 42 Section 412.3 of the Code of Federal Regulations Patient History Date of Service: 04/29/22 Primary Care Provider: Dr. Isai Snow Reason for admission: Gastritis History of Present Illness: Mr. Kiel Ngo is a 71 year old bed-bound male who has a past medical history of atrial fibrillation, anxiety, type II diabetes mellitus, hypertension, chronic pain syndrome complicated by substance use disorder (narcotics, benzodiazepines) who presents to the [facility] Emergency Department for nausea and vomiting. He was accepted for admission by Dr. Snow yesterday evening. Our service is covering Dr. Snow today, so I was asked this morning to evaluate at admit Mr. Ngo. It appears that he was recently admitted to our hospital from 04/25/2022 to 04/26/2022 for a penile pustule. During that admission, he was noted to have been exhibiting drug-seeking behavior, for which Dr. Snow advised that he visit a Psychiatrist and a Pain specialist. Please refer to Dr. Snow's discharge summary for further details on that hospitalization. He reports that, around 02:00 AM, he awoke from sleep with intractable nausea and vomiting. He denies any obvious inciting or alleviating factors. He has not tried taking any medications for his symptoms. He reports that he has had too many episodes of vomiting to keep count. He denies any emiliano bleeding, but reports that his vomit was dark brown in color. He denies any NSAID use. On review of systems, he denies any fevers, chills, headaches, dizziness, syncope, weakness, chest pain, palpitations, shortness of breath, wheezing, cough, abdominal pain, hematemesis, diarrhea, constipation, hematochezia, melena, dysuria, hematuria, myalgia, or any other symptoms. He presented to the Emergency Department for further evaluation. Upon presentation, his vital signs were stable. His laboratory studies were notable for a hemoglobin of 12.6 and an INR of 1.14. EKG revealed sinus tachycardia without STEMI criteria. Chest x-ray revealed, "mild COPD." CT abdomen/pelvis revealed, "no acute intra-abdominal or pelvic findings. Significant fecal retention." There was concern from the ED provider that he may have acute gastritis with bleeding. In the Emergency Department, he was given promethazine, 500 mL Normal Saline, and started on a pantoprazole drip. He was admitted to the General Internal Medicine service for further evaluation. Allergies meperidine HCl [From Demerol] Allergy (Severe, Verified 11/17/18 00:49) Anaphylaxis metformin Allergy (Intermediate, Verified 11/17/18 00:49) Anaphylaxis morphine Allergy (Verified 04/28/22 20:14) Rash Clindamycin Allergy (Uncoded 11/17/18 00:49) Unknown Home medications list reviewed: Yes Home Medications: Tizanidine HCl [Zanaflex] 4 mg PO DAILY 03/11/21 hydrOXYzine HCL [Atarax*] 25 mg PO BID 03/11/21 Docusate [Colace Cap*] 100 mg PO DAILY #20 cap 03/13/21 Metoprolol Tartrate [Lopressor*] 50 mg PO BID #60 tab 03/13/21 Nystatin Powder [Mycostatin (Powder)*] 1 appl TOP BID #1 btl 03/13/21 Hydromorphone HCl [Dilaudid] 4 mg PO TID 12/03/21 clonazePAM [Klonopin Rapdis Tab] 0.25 mg PO DAILY PRN #30 tab.rapdis 12/04/21 Smz./Tmp. [Bactrim Ds 800 MG/160 MG*] 1 tab PO BID #20 tab 04/26/22 - Past Medical/Surgical History Has patient received pneumonia vaccine in the past: No Diabetic: No -: IDDM -: ANXIETY -: AFIB -: Osteoarthritis -: Pancreatitis -: Lymphedema -: Chronic pain -: 3 foot surgeries -: PATRICIA knee surgery -: R shoulder surgery -: 3 back surgeries -: CHOLECYSTECTOMY Psychosocial/ Personal History: Lives at home with his - Family History Father -: Other (see notes) Notes: dementia Mother -: Other (see notes) Notes: Gallstones - Social History Smoking Status: Never smoker Alcohol use: No CD- Drugs: No Caffeine use: No Review of Systems General: Unremarkable Eyes: Unremarkable ENT: Unremarkable Respiratory: Unremarkable Cardiovascular: Unremarkable Gastrointestinal: Nausea, Vomiting Genitourinary: Unremarkable Musculoskeletal: Unremarkable Neurological: Other (bed-bound at baseline) Lymphatics: Unremarkable Physical Examination - Vital Signs Temperature: 97.9 F Blood Pressure: 150/83 Pulse: 84 Respirations: 16 Pulse Ox (%): 96 - Physical Exam General: Alert, In no apparent distress, Oriented x3 HEENT: Atraumatic, Mucous membr. moist/pink, EOMI, Sclerae nonicteric Neck: Supple, Without JVD or thyroid abnormality Respiratory: Clear to auscultation bilaterally, Normal air movement Cardiovascular: Regular rate/rhythm, Normal S1 S2, No gallops, No rubs, No murmurs Gastrointestinal: Normal bowel sounds, Soft and benign, No tenderness, No rebound, No guarding Musculoskeletal: No clubbing Integumentary: No rashes Neurological: Other (lower extremity atrophy - bedbound at baseline) - Studies Laboratory Data (last 24 hrs) 04/28/22 17:28: PT 12.6 H, INR 1.14 04/28/22 17:28: WBC 8.7, Hgb 12.6 L, Hct 38.1 L, Plt Count 367 04/28/22 17:28: Sodium 136, Potassium 3.4 L, BUN 9, Creatinine 0.82, Glucose 184 H, Magnesium 2.0, Total Bilirubin 0.4, AST 7 L, ALT 16, Alkaline Phosphatase 154 H, Lipase 69 L Assessment and Plan - Plan # Concern for Acute Upper Gastrointestinal Bleed Per ED note, there was concern for hematemesis. Upon my interview, he declines any hematemesis, hemoptysis, hematochezia, or melena. - Gastroenterology consulted and spoke with Dr. Allen - recommendations appr eciated - Plan for serial H&H and discharge tomorrow if stable - Post-discharge, he will follow-up in Dr. Allen's office in the afternoon for possible EGD - [address] [place] [address] - Type & Screen = A-positive - INR = 1.14 - q6hr H&H - Hgb trend: 12.6 -> 11.3 - Transfuse for Hgb < 7.0 - 2 large bore IVs - Pantoprazole drip - IV fluids with Lactated Ringers' at 75 mL/hr - NPO # Chronic Pain Syndrome complicated by Substance Use Disorder (Narcotics, Benzodiazepines) No evidence of acute pain to justify change in medications. - [place] [employer] Review: - He has received 62 controlled prescriptions from 6 prescribers to 4 pharmacies over the last 2 years - Last prescriptions: - 03/26/2022: Hydromorphone 4 mg, 112 tabs - 03/06/2022: Clonazepam 0.25 mg, 90 tabs - Continue home medications # Type II Diabetes Mellitus # Anxiety # Atrial Fibrillation, currently sinus # Hypertension - Resume home medications once verified Karson Linder MD Discharge Plan: Home Plan to discharge in: 24 Hours - Advance Directives Does patient have a Living Will: No Does patient have a Durable POA for Healthcare: No
[2022-04-29] MEDS ORDERED: clonazePAM 0.5 MG TAB PO PRN ×2 (09:35→12:31)
--- NOTE | 2022-04-29 12:42 | EKG ---
Test Date: 2022-04-28 Test Time: 17:36:50 Carroting Machine Offbearer: JENNY MEASUREMENT RESULTS: Intervals: Rate: 126 CO: 150 QRSD: 82 QT: 414 QTc: 599 [place]: P: 60 CO: 150 QRS: 32 T: 40 INTERPRETIVE STATEMENTS: Sinus tachycardia Low voltage QRS Nonspecific ST and T wave abnormality Abnormal ECG Compared to ECG 04/25/2022 04:47:03 Low QRS voltage now present Atrial premature complex(es) no longer present Aberrant conduction of supraventricular beat(s) no longer present ST (T wave) deviation still present Electronically Signed On 04-29-22 12:39:52 CDT by Óscar Holman
[2022-04-29 13:07] LABS: Hematocrit 38.1 % (39.6-49.0)
[2022-04-29] MEDS: HYDROMORPHONE ORAL 2 MG TAB PO PRN ×2 (13:12→19:07)
[2022-04-29] MEDS ORDERED: HYDROMORPHONE ORAL 2 MG TAB ONE ×2 (13:12→19:13)
[2022-04-29] MEDS ORDERED: ACETAMINOPHEN 325 MG TABLET ONE (14:25)
[2022-04-29] MEDS ORDERED: clonazePAM 0.5 MG TAB ONE (14:28)
[2022-04-29] MEDS ORDERED: ACETAMINOPHEN 500 MG TAB ONE (14:30)
[2022-04-29] MEDS ORDERED: ACETAMINOPHEN 325 MG TABLET PO PRN (15:09)
[2022-04-29] MEDS ORDERED: ALBUTEROL 2.5 MG/3 ML NEB SOL NEB PRN (16:00)
[2022-04-29] MEDS ORDERED: IPRATROPIUM BROM 0.5MG/2.5ML NEB SCH (16:00)
[2022-04-29] MEDS ORDERED: IPRATROPIUM BROM 0.5MG/2.5ML ONE (16:40)
[2022-04-29] MEDS ORDERED: PANTOPRAZOLE INJ 80 MG in NA CHLORIDE 0.9% 250 ML IV SCH (17:00)
[2022-04-29 19:12] LABS: Hematocrit 37.1 % (39.6-49.0)
[2022-04-29] MEDS ORDERED: METOPROLOL TAR 50 MG TAB ONE (21:47)
[2022-04-30] MEDS ORDERED: HYDROMORPHONE ORAL 2 MG TAB ONE ×2 (00:21→07:52)
[2022-04-30 00:28] LABS: Hematocrit 34.8 % (39.6-49.0)
[2022-04-30 00:42] VITALS: BMI 27.2
[2022-04-30] MEDS: HYDROMORPHONE ORAL 2 MG TAB PO PRN ×2 (01:40→07:46)
[2022-04-30] MEDS: PANTOPRAZOLE INJ 80 MG in NA CHLORIDE 0.9% 250 ML IV SCH (02:00)
[2022-04-30] MEDS: NS KCL 20MEQ 20 MEQ/1,000 ML BAG IV SCH (02:14)
[2022-04-30] MEDS ORDERED: NS KCL 20MEQ 1,000 ML IV ONE (03:05)
[2022-04-30] MEDS ORDERED: PANTOPRAZOLE 40 MG INJ ONE (03:05)
[2022-04-30] MEDS ORDERED: NA CHLORIDE 0.9% 250 ML ONE (03:05)
[2022-04-30 05:51] VITALS: O2SAT 99
--- NOTE | 2022-04-30 06:57 | P.DS ---
Admission Date: 04/28/22 Discharge Date: 04/30/22 Primary Care Provider: Dr. Isai Snow Disposition: ROUTINE DISCHARGE Discharge Condition: GOOD Reason for Admission: Gastritis Consultations: 1. Gastroenterology Hospital Course: DIAGNOSES: # Concern for Acute Upper Gastrointestinal Bleed # Presumed Asymptomatic COVID-19 Infection # Chronic Pain Syndrome complicated by Substance Use Disorder (Narcotics, Benzodiazepines) # Type II Diabetes Mellitus # Anxiety # Atrial Fibrillation, currently sinus # Hypertension HOSPITAL COURSE: Mr. Kiel Ngo is a 71 year old bed-bound male who has a past medical history of atrial fibrillation, anxiety, type II diabetes mellitus, hypertension, chronic pain syndrome complicated by substance use disorder (narcotics, benzodiazepines) who was admitted to the [facility] on 04/29/2022 for nausea and vomiting. Although he never reported hematemesis, hemoptysis, hematochezia, or melena to me, there was concern from the ED provider that he may have acute gastritis with bleeding. Gastroenterology was consulted and I spoke with Dr. Washington. He recommended serial H&H and discharge to follow-up in his clinic later today for an outpatient EGD. This was verbalized to Mr. Ngo and he was provided information (phone number and address) to Dr. Allen's office. Over his hospit al course, his H&H remained stable and he did not have any episode of bleeding. On 04/30/2022, he was seen on morning rounds and deemed medically stable for discharge. He was discharged with instructions to present directly to Dr. Allen's office today and to schedule a follow-up appointment with Dr. Snow's office in 3- 5 days. He was provided a prescriptions for pantoprazole. He was given the opportunity to ask questions and reported no further questions. Furthermore, all questions were answered to the best of my ability. Today, I personally spent 20 minutes on his case, of which greater than 50% of the time was spent in patient education, counseling, and coordination of care as described above. PHYSICAL EXAM: General: Alert, In no apparent distress, Oriented x3 HEENT: Atraumatic, Mucous membr. moist/pink, EOMI, Sclerae nonicteric Neck: Supple, Without JVD or thyroid abnormality Respiratory: Clear to auscultation bilaterally, Normal air movement Cardiovascular: Regular rate/rhythm, Normal S1 S2, No gallops, No rubs, No murmurs Gastrointestinal: Normal bowel sounds, Soft and benign, No tenderness, No rebound, No guarding Musculoskeletal: No clubbing Integumentary: No rashes Neurological: Other (lower extremity atrophy - bedbound at baseline) Vital Signs/Physical Exam: Temp Pulse Resp BP Pulse Ox 97.8 F 56 14 138/75 93 04/30/22 04:00 04/30/22 04:00 04/30/22 04:00 04/30/22 04:00 04/30/22 04:00 Laboratory Data at Discharge: WBC 6.7 K/uL (4.3-10.9) D 04/29/22 02:16 Hgb 11.4 g/dL (13.6-17.9) L 04/30/22 00:16 Hct 34.8 % (39.6-49.0) L 04/30/22 00:16 Plt Count 308 K/uL (152-406) 04/29/22 02:16 PT 12.6 SECONDS (9.5-12.5) H 04/28/22 17:28 INR 1.14 04/28/22 17:28 Sodium 140 mmol/L (136-145) 04/29/22 02:16 Potassium 4.1 mmol/L (3.5-5.1) 04/29/22 02:16 BUN 8 mg/dL (7-18) 04/29/22 02:16 Creatinine 0.86 mg/dL (0.55-1.3) 04/29/22 02:16 Glucose 125 mg/dL (74-106) H 04/29/22 02:16 Magnesium 2.0 mg/dL (1.8-2.4) 04/28/22 17:28 Total Bilirubin 0.4 mg/dL (0.2-1.0) 04/28/22 17:28 AST 7 U/L (15-37) L 04/28/22 17:28 ALT 16 U/L (12-78) 04/28/22 17:28 Alkaline Phosphatase 154 U/L (45-117) H 04/28/22 17:28 Lipase 69 U/L (73-393) L 04/28/22 17:28 Home Medications: Tizanidine HCl [Zanaflex] 4 mg PO DAILY 03/11/21 hydrOXYzine HCL [Atarax*] 25 mg PO BID 03/11/21 Docusate [Colace Cap*] 100 mg PO DAILY #20 cap 03/13/21 Metoprolol Tartrate [Lopressor*] 50 mg PO BID #60 tab 03/13/21 Nystatin Powder [Mycostatin (Powder)*] 1 appl TOP BID #1 btl 03/13/21 Hydromorphone HCl [Dilaudid] 4 mg PO TID 12/03/21 clonazePAM [Klonopin Rapdis Tab] 0.25 mg PO DAILY PRN #30 tab.rapdis 12/04/21 Smz./Tmp. [Bactrim Ds 800 MG/160 MG*] 1 tab PO BID #20 tab 04/26/22 Pantoprazole [Protonix Tab*] 40 mg PO BID 30 Days #60 tab 04/30/22 New Medications: Pantoprazole [Protonix Tab*] 40 mg PO BID 30 Days #60 tab Physician Discharge Instructions: 1. Please go directly to the Gastroenterology Clinic at: [address] [place] [address] - Ask for Dr. Washington, he is expecting you - Do not eat anything prior to this appointment as he may schedule you for an upper endoscopy this afternoon 2. Please schedule follow-up appointment with your PCP in 3-5 days. Diet: NPO Activity: Fall precautions Followup: NONE,NONE [Primary Care Provider] - Clayton Washington MD [ACTIVE - CAN ADMIT] -
[2022-04-30] MEDS: METOPROLOL TAR 50 MG TAB PO SCH (07:46)
[2022-04-30] MEDS ORDERED: METOPROLOL TAR 25 MG TAB ONE (07:52)
[2022-04-30 08:54] VITALS: BP 173/93; TEMP 98
--- OUTSIDE RECORDS SUMMARY | 2022-05-02 10:52 | XMS REPORT | Continuity of Care Document ---
:[address] [facility] t Address [address] [place] [address] [place] [id number] Care Team Providers Name Role Phone DIOGENES [...] Policy Number Effective Date Expiration Date S [facility] MEDICARE PART A [id number] 2007 \\T\\ B 00:00:00 [employer] INDEMNITY [id number] 2016 00:00:00 MEDICARE PART A [id number] 2014 \\T\\ B - MEDICARE 00:00:00 INDEMNITY/TRADITIO [id number] NAL CHOICE - [employer] 00:00:00 Problems Condition [...] rs LFTs LFTs 2-05 ity of 00:00: [place] 00 Medical Branch Cellulitis Cellulitis Disease Active U nivers 2-04 ity of 00:00: Medical Branch Rash Rash Disease Active 2019- Univers 1-09 ity of 00:00: [place] 00 Medical Branch Allergies, Adverse Reactions, Alerts Allergy Allergy Status Severity Reaction(s) Onset Inactive Treating Comm ents Source Name Type Date Date Clinician Grimes Propensi Active Rash 2020- Univers ty to [...] INGREDI 3-16 ity of 00:00: [place] 00 [facility] Branch GLIMEPIR DRUG Active Hives Univers EFREN INGREDI 3-16 ity of 00:00: [place] [address] Medical Branch METFORMI DRUG Active ITCHING Univers N INGREDI 3-16 ity of 00:00: [place] [address] Medical Branch Social History Social Habit Start Date Stop Date Quantity Comments Source Exposure to Not sure University of SARS-CoV-2 [facility] (event) Branch History of Chews Tobacco University of tobacco use [facility] History GAOH 2020-11-17 2020-11-17 5 University o f Financial 00:00:00 00:00:00 [facility] Branch History [facility] Food 2020-11-17 2020-11-17 1 Univers ity of Worry 00:00:00 00:00:00 [facility] History [facility] Food 2020-11-17 2020-11-17 1 Univers ity of Scarcity 00:00:00 00:00:00 [facility] History [facility] 2020-11-17 2020-11-17 1 University o f Transport Med 00:00:00 00:00:00 [facility] al Branch History [facility] 2020-11-17 2020-11-17 1 University o f Transport Non-Med 00:00:00 00:00:00 [facility] edical Branch Education 2020-11-16 2020-11-16 21 [place] of 00:00:00 00:00:00 [facility] Alcohol intake 2020-11-16 2020-11-16 Ex-drinker [place] of 00:00:00 00:00:00 (finding) [facility] Tobacco use and 2020-08-21 2020-08-21 Former user Universi ty of exposure 00:00:00 00:00:00 [facility] Tobacco Comment 2020-08-21 2020-08-21 quit 10 years Univer sity of 00:00:00 00:00:00 ago, started in [place] Med ical 2nd year of Branch college (~40 years) Alcohol Comment 2020-08-21 2020-08-21 Used to have 2-3 Uni versity of 00:00:00 00:00:00 six-packs of [place] Medica l beer daily x 20 Branch years, quit 2005 History [facility] 2020-08-21 2020-08-21 99 University o f Alcohol Frequency 00:00:00 00:00:00 [place] M edical Branch History [facility] 2020-08-21 2020-08-21 99 [place] o f Alcohol Std 00:00:00 00:00:00 [place] Medical Drinks Branch History [facility] 2020-08-21 2020-08-21 99 [place] o f Alcohol Binge 00:00:00 00:00:00 [facility] al Branch Sex [birth year] Universit y of 00:00:00 00:00:00 [facility] Smoking Status Start Date Stop Date Source Never smoker [facility] Medications Ordered Filled Start Stop [...] 0845, Until Discontinu ed, Routine amLODIPine Yes [id number] 10mg Take 1 Univers 10 mg 3-07 tablet by ity of tablet 00:00: mouth [place] 00 daily. Medical Branch clotrimazol 0 Yes [id number] Apply to Univers e 1 % 3-07 face/ears, ity of topical 00:00: armpits, [place] cream 00 pannus and Medical back/any Branch other rash twice a day fluocinonid 0 Yes [id number] Apply to Univers e 0.05 % 3-07 scalp ity of solution 00:00: twice a [place] 00 day Medical Branch triamcinolo 2020-0 Yes [id number] Apply to Univers ne 3-07 back, ity of acetonide 00:00: armpits [place] 0.1 % cream 00 and other Med ical affected Branch areas twice daily, please mix with clotrimazo le hydrOXYzine Yes [id number] 10mg Take 1 Univers 10 mg 3-07 tablet by ity of tablet 00:00: mouth 2 00 (two) Medical times Branch daily. amLODIPine 0 Yes [id number] 10mg Take 1 Univers 10 mg 3-07 tablet by ity of tablet 00:00: mouth 00 daily. Medical Branch clotrimazol 2020-0 Yes [id number] Apply to Univers e 1 % 3-07 face/ears, ity of topical 00:00: armpits, [place] cream 00 pannus and Medical back/any Branch other rash twice a day fluocinonid 2020-0 Yes [id number] Apply to Univers e 0.05 % 3-07 scalp ity of solution 00:00: twice a day Medical Branch triamcinolo 0 Yes [id number] Apply to Univers ne 3-07 back, ity of acetonide 00:00: armpits [place] 0.1 % cream 00 and other Med ical affected Branch areas twice daily, please mix with clotrimazo le hydrOXYzine Yes [id number] 10mg Take 1 Univers 10 mg 3-07 tablet by ity of tablet 00:00: mouth 2 (two) Medical times Branch daily. amLODIPine Yes [id number] 10mg Take 1 Univers 10 mg 3-07 tablet by ity of tablet 00:00: mouth 00 daily. Medical Branch clotrimazol 0 Yes [id number] Apply to Univers e 1 % 3-07 face/ears, ity of topical 00:00: armpits, [place] cream 00 pannus and Medical back/any Branch other rash twice a day fluocinonid 2020-0 Yes [id number] Apply to Univers e 0.05 % 3-07 scalp ity of solution 00:00: twice a [place] 00 day Medical Branch triamcinolo 2020-0 Yes [id number] Apply to Univers ne 3-07 back, ity of acetonide 00:00: armpits [place] 0.1 % cream 00 and other Med ical affected Branch areas twice daily, please mix with clotrimazo le hydrOXYzine Yes [id number] 10mg Take 1 Univers 10 mg 3-07 tablet by ity of tablet 00:00: mouth 2 [place] 00 (two) Medical times Branch daily. amLODIPine Yes [id number] 10mg Take 1 Univers 10 mg 3-07 tablet by ity of tablet 00:00: mouth [place] 00 daily. Medical Branch clotrimazol Yes [id number] Apply to Univers e 1 % 3-07 face/ears, ity of topical 00:00: armpits, [place] cream 00 pannus and Medical back/any Branch other rash twice a day fluocinonid Yes [id number] Apply to Univers e 0.05 % 12-17 scalp ity of solution 00:00: twice a [place] 00 day Medical Branch triamcinolo Yes [id number] Apply to Univers ne 3-07 back, ity of acetonide 00:00: armpits [place] 0.1 % cream 00 and other Med ical affected Branch areas twice daily, please mix with clotrimazo le hydrOXYzine Yes [id number] 10mg Take 1 Univers 10 mg 3-07 tablet by ity of tablet 00:00: mouth 2 [place] 00 (two) Medical times Branch daily. cephALEXin 2020-2020- No [id number] 500mg Take 1 Univers 500 mg 3-04 14- capsule by ity of capsule 00:00: 05:59 mouth [place] 00 :00 every 6 Medical (six) Branch hours for 3 days. cephALEXin 2020-0 2020- No [id number] 500mg Take 1 Univers 500 mg 3-04 14-11 capsule by ity of capsule 00:00: 05:59 mouth [place] 00 :00 every 6 Medical (six) Branch hours for 3 days. hydrOXYzine 2020-0 2020- No [id number] 10mg Take 1 Univers 10 mg 3-04 [...] IV [place] 500 mL 00 :00 Piggyback, [facility] ONCE, 1 Branch dose, Fri12/15/20 at 1000, STAT HYDROmorpho Yes 4mg 4 mg, Unive rs ne 12-15 Oral, BID, ity of (DILAUDID) 15:30: First dose [place] tablet 4 mg 00 (after Medica l last Branch modificati on) on Fri12/15/20 at 0930, Until Discontinu ed, Routine amLODIPine 2020- No [id number] 10mg Take 1 Univers 10 mg 12-15 tablet by ity of tablet 00:00: 00:00 mouth [place] 00 :00 daily. Medical Branch HYDROmorpho No 1mg 1 mg, Univ ers ne 12-14 Oral, ity of (DILAUDID) 17:35: 15:18 Q6HPRN, [place] tablet 1 mg 30 :06 Starting Medi jose c [facility] 12/14/20 Branch at 1135, Until Fri12/15/20 at 0918, Routine, Pain (scale 7-10) hydrOXYzine Yes 10mg 10 mg, Univ ers (ATARAX) 12-14 Oral, BID, ity o f tablet 10 17:30: First dose [place] mg 00 on [facility] Medical 12/14/20 at Branch 1130, Until Discontinu ed, Routine lisinopriL Yes 5mg 5 mg, Univer s (PRINIVIL,Z 12-14 Oral, ity of ESTRIL) 17:30: DAILY, [place] tablet 5 mg 00 First dose Me dical on [facility] Branch 12/14/20 at 1130, Until Discontinu ed, Routine triamcinolo 2020- No [id number] Apply to [facility] ne 12-14 back, ity of acetonide 00:00: 00:00 armpits [place] 0.1 % cream 00 :00 and other Med ical affected Branch areas twice daily, please mix with clotrimazo le clotrimazol 2020- No [id number] Apply to Univers e 1 % 12-14 face/ears, ity of topical 00:00: 00:00 armpits, [place] cream 00 :00 pannus and Medical back/any Branch other rash twice a day fluocinonid 2020- No [id number] Apply to Univers e 0.05 % 12-14 scalp ity of solution 00:00: 00:00 twice a [place] 00 :00 day Medical Branch hydrOXYzine 2020- No [id number] 10mg Take 1 Univers 10 mg 12-14 [...] 1 [place] injection 4 00 :00 dose, [facility] ical mg 12/12/20 at Branch 2300, Routine traMADoL 2020- No 50mg 50 mg, Univer s (ULTRAM) 3 03-03 Oral, ity of tablet 50 03:45: 03:34 ONCE, 1 [place] mg 00 :00 dose, [facility] 12/12/20 at Branch 2145, Routine insulin Yes [facility]U [facility] 12-12 Subcutaneo ity o f (LANTUS 15:00: us, DAILY, [place] U-100) 00 First dose Medical injection on [facility] 15 Units 12/12/20 at 0900, Until Discontinu ed hydrOXYzine 2020- No 10mg 10 mg, Uni vers (ATARAX) 12-12 03-02 Oral, ity of tablet 10 08:15: 07:33 ONCE, 1 [place] mg 00 :00 dose, [facility] 12/12/20 at Branch 0215, Routine mirtazapine Yes 7.5mg 7.5 mg, Un toi (REMERON) 3-02 Oral, QHS, ity of tablet 7.5 03:00: First dose [place] mg 00 on [facility] 12/11/20 at Branch 2100, Until Discontinu ed, Routine venlafaxine Yes 300mg 300 mg, Un toi XR (EFFEXOR 3-02 Oral, QHS, it y of XR) 24 hr 03:00: First dose [place] capsule [address] [facility] Medica l mg 12/11/20 at [...] of 1,000 mg in 19:00: 17:35 Piggyback, [place] NaCl 0.9% 00 :26 Q8H ABX, Medica [...] insulin Yes 5U 5 Units, [facility] s lispro 12-11 Subcutaneo ity of (human) 18:00: us, TID [place] (HumaLOG 00 MEALS, Medical U-100) First dose Branch injection 5 on Fri Units 12/11/20 at 1200, Until Discontinu ed Polyethylen Yes 17g 17 g, [facility] rs e Glycol 12-11 Oral, ity of 3350 17:47: [id number], [place] (MIRALAX) 05 Starting Medica l powder [...] 0.9% 2020- No 30mL/kg at 999 Un oti (NS) bolus 12-11 mL/hr, ity of infusion [...]
Duration of therapy: 72 hours sennosides- Yes [id number] 1{tbl} Take 1 Univers docusate 2- tablet by ity of sodium 00:00: mouth 2 [place] 8.6-50 mg 00 (two) Medical per tablet times Branch daily. hydrocortis Yes [id number] Apply to [facility] one 2.5 % 11-21 affected ity of cream 00:00: area(s) 2 [place] 00 (two) Medical times Branch daily. blood sugar Yes [id number] Use to [facility] diagnostic 11-21 check ity of (FREESTYLE 00:00: blood [place] LITE 00 glucose Medical STRIPS) 4-5 times Branch strip daily. Polyethylen Yes [id number] 17g Take 1 Univers e Glycol 11-21 Packet by ity of 3350 17 00:00: mouth [place] gram powder 00 every 24 Medi jose c (twenty-fo Branch ur) hours as needed for Constipati on. sennosides- Yes [id number] 1{tbl} Take 1 Univers docusate 2-09 tablet by ity of sodium 00:00: mouth 2 [place] 8.6-50 mg 00 (two) Medical per tablet times Branch daily. hydrocortis 2020-0 Yes [id number] Apply to Univers one 2.5 % 2-09 affected ity of cream 00:00: area(s) 2 [place] 00 (two) Medical times Branch daily. blood sugar 2020-0 Yes [id number] Use to Univers diagnostic 11-21 check ity of (FREESTYLE 00:00: blood [place] LITE 00 glucose Medical STRIPS) 4-5 times Branch strip daily. Polyethylen 2020-0 Yes [id number] 17g Take 1 Univers e Glycol 2-09 Packet by ity of 3350 17 00:00: mouth [place] gram powder 00 every 24 Medi jose c (twenty-fo Branch ur) hours as needed for Constipati on. sennosides- 0 Yes [id number] 1{tbl} Take 1 Univers docusate 2-09 tablet by ity of sodium 00:00: mouth 2 [place] 8.6-50 mg 00 (two) Medical per tablet times Branch daily. hydrocortis 2020- Yes [id number] Apply to Univers one 2.5 % 2-09 affected ity of cream 00:00: area(s) 2 [place] 00 (two) Medical times Branch daily. blood sugar 2020- Yes [id number] Use to [facility] diagnostic 11-21 check ity of (FREESTYLE 00:00: blood [place] LITE 00 glucose Medical STRIPS) 4-5 times Branch strip daily. Polyethylen 2020-0 Yes [id number] 17g Take 1 Univers e Glycol 2-09 Packet by ity of 3350 17 00:00: mouth [place] gram powder 00 every 24 Medi jose c (twenty-fo Branch ur) hours as needed for Constipati on. sennosides- 2020-0 Yes [id number] 1{tbl} Take 1 Univers docusate 2-09 tablet by ity of sodium 00:00: mouth 2 [place] 8.6-50 mg 00 (two) Medical per tablet times Branch daily. hydrocortis 2020-0 Yes [id number] Apply to Univers one 2.5 % 2-09 affected ity of cream 00:00: area(s) 2 [place] 00 (two) Medical times Branch daily. blood sugar Yes [id number] Use to [facility] diagnostic 11-21 check ity of (FREESTYLE 00:00: blood [place] LITE 00 glucose Medical STRIPS) 4-5 times Branch strip daily. Polyethylen Yes [id number] 17g Take 1 Univers e Glycol 11-21 Packet by ity of 3350 17 00:00: mouth [place] gram powder 00 every 24 Medi jose c (twenty-fo Branch ur) hours as needed for Constipati on. Insulin 2020- No [id number] 15U inject 15 Univers Glargine 11-21 Units ity of (LANTUS 00:00: 05:59 under the [place] SOLOSTAR 00 :00 skin every Medic al U-100 morning Branch INSULIN) for 30 100 unit/mL days. (3 mL) injection venlafaxine 2020- No [id number] 150mg Take 1 Univers XR 150 mg 11-21 capsule by ity of 24 hr 00:00: 05:59 mouth 3 [place] capsule 00 :00 (three) Medical times Branch daily for 30 days. Insulin 2020- No [id number] 15U inject 15 Univers Glargine 11-21 Units ity of (LANTUS 00:00: 05:59 under the [place] SOLOSTAR 00 :00 skin every Medic al U-100 morning Branch INSULIN) for 30 100 unit/mL days. (3 mL) injection venlafaxine 2020- No [id number] 150mg Take 1 Univers XR 150 mg 11-21 capsule by ity of 24 hr 00:00: 05:59 mouth 3 [place] capsule 00 :00 (three) Medical times Branch daily for 30 days. triamcinolo 2020- No [id number] Apply to [facility] ne 11-21 area(s) 2 ity of acetonide 00:00: 00:00 (two) [place] 0.1 % cream 00 :00 times Medical daily. Branch cephALEXin 2020- No [id number] 1000mg Take 2 Univers 500 mg 11-21 capsules ity of capsule 00:00: 00:00 by mouth 3 [place] 00 :00 (three) Medical times Branch daily. doxycycline 2020- No [id number] 100mg Take 1 Univers hyclate 100 11-21 capsule by i ty of mg capsule 00:00: 00:00 mouth [place] 00 :00 every 12 Medical (twelve) Branch hours. lactobacill 2020- No [id number] 1{tbl} Take 1 Univers us 11-21 tablet by ity of acidophilus 00:00: 00:00 mouth 2 [place] 25 million 00 :00 (two) Medical cell -100 times Branch mg captab daily. bisacodyL 2020- No [id number] 10mg Insert 1 Univers 10 mg 11-21 Suppositor ity of suppository 00:00: 00:00 y into [place] 00 :00 rectum at Medical bedtime as Branch needed for Constipati on. ALPRAZolam 2020- No [id number] .25mg Take 1 Univers (XANAX) 11-21 tablet by ity of 0.25 mg 00:00: 00:00 mouth 2 [place] tablet 00 :00 (two) Medical times Branch daily. hydrOXYzine 2020- No [id number] 20mg Take 2 Univers 10 mg 11-21 [...] ity of (NOVOLOG 01:13: under the [place] [facility] FLEXPEN SC) 36 skin. Medical Branch ALPRAZolam [...] 34 :00 Medical Branch hydrocortis 2019- Yes [id number] Apply to Univers one 2.5 % 1-11 affected ity of cream 00:00: area(s) 2 [place] 00 (two) Medical times Branch daily. hydrOXYzine 2019- Yes [id number] 20mg Take 2 Univers 10 mg 1-11 tablets by ity of tablet 00:00: mouth [place] 00 every 8 Medical (eight) Branch hours as needed for Itching or Anxiety. Polyethylen 2019- Yes [id number] 17g Take 1 Univers e Glycol 1-11 Packet by ity of 3350 17 00:00: mouth [place] gram powder 00 every 24 Medi jose c (twenty-fo Branch ur) hours as needed for Constipati on. hydrocortis 2019-10 Yes [id number] Apply to Univers one 2.5 % 1-11 affected ity of cream 00:00: area(s) 2 [place] 00 (two) Medical times Branch daily. hydrOXYzine 2019- Yes [id number] 20mg Take 2 Univers 10 mg 1-11 tablets by ity of tablet 00:00: mouth [place] 00 every 8 Medical (eight) Branch hours as needed for Itching or Anxiety. Polyethylen 2019- Yes [id number] 17g Take 1 Univers e Glycol 1-11 Packet by ity of 3350 17 00:00: mouth [place] gram powder 00 every 24 Medi jose c (twenty-fo Branch ur) hours as needed for Constipati on. hydrocortis 2019- Yes [id number] Apply to Univers one 2.5 % 1-11 affected ity of cream 00:00: area(s) 2 [place] 00 (two) Medical times Branch daily. hydrOXYzine 2019- Yes [id number] 20mg Take 2 Univers 10 mg 1-11 tablets by ity of tablet 00:00: mouth [place] 00 every 8 Medical (eight) Branch hours as needed for Itching or Anxiety. Polyethylen 2020- Yes [id number] 17g Take 1 Univers e Glycol 1-11 Packet by ity of 3350 17 00:00: mouth [place] gram powder 00 every 24 Medi jose c (twenty-fo Branch ur) hours as needed for Constipati on. hydrocortis 2019- Yes [id number] Apply to Univers one 2.5 % 1-11 affected ity of cream 00:00: area(s) 2 [place] (two) Medical times Branch daily. hydrOXYzine 2019- Yes [id number] 20mg Take 2 Univers 10 mg 1-11 tablets by ity of tablet 00:00: mouth [place] 00 every 8 Medical (eight) Branch hours as needed for Itching or Anxiety. Polyethylen 2019- Yes [id number] 17g Take 1 Univers e Glycol 1-11 Packet by ity of 3350 17 00:00: mouth [place] gram powder 00 every 24 Medi jose c (twenty- Branch ur) hours as needed for Constipati on. hydrocortis 2019- Yes [id number] Apply to Univers one 2.5 % 1-11 affected ity of cream 00:00: area(s) 2 [place] 00 (two) Medical times Branch daily. hydrOXYzine 2019- Yes [id number] 20mg Take 2 Univers 10 mg 1-11 tablets by ity of tablet 00:00: mouth [place] 00 every 8 Medical (eight) Branch hours as needed for Itching or Anxiety. Polyethylen 2020- Yes [id number] 17g Take 1 Univers e Glycol 1-11 Packet by ity of 3350 17 00:00: mouth [place] gram powder 00 every 24 Medi jose c (twenty-fo Branch ur) hours as needed for Constipati on. hydrocortis 2019- Yes [id number] Apply to Univers one 2.5 % 1-11 affected ity of cream 00:00: area(s) 2 [place] 00 (two) Medical times Branch daily. hydrOXYzine 2019- Yes [id number] 20mg Take 2 Univers 10 mg 1-11 tablets by ity of tablet 00:00: mouth [place] 00 every 8 Medical (eight) Branch hours as needed for Itching or Anxiety. Polyethylen 2020- Yes [id number] 17g Take 1 Univers e Glycol 1-11 Packet by ity of 3350 17 00:00: mouth [place] gram powder 00 every 24 Medi jose c (twenty-fo Branch ur) hours as needed for Constipati on. hydrocortis 2019-10 Yes [id number] Apply to Univers one 2.5 % 1-11 affected ity of cream 00:00: area(s) 2 [place] 00 (two) Medical times Branch daily. hydrOXYzine 2019-10 Yes [id number] 20mg Take 2 Univers 10 mg 1-11 tablets by ity of tablet 00:00: mouth [place] 00 every 8 Medical (eight) Branch hours as needed for Itching or Anxiety. Polyethylen 2019-10 Yes [id number] 17g Take 1 Univers e Glycol 1-11 Packet by ity of 3350 17 00:00: mouth [place] gram powder 00 every 24 Medi jose c (twenty-fo Branch ur) hours as needed for Constipati on. triamcinolo 2019-10 2020- No [id number] Apply to [facility] 10-23 area(s) 2 ity of acetonide 00:00: 05:59 (two) [place] 0.1 % cream 00 :00 times Medical daily for Branch 14 days. triamcinolo 2019-10 2020- No [id number] Apply to [facility] 10-23 area(s) 2 ity of acetonide 00:00: 05:59 (two) [place] 0.1 % cream 00 :00 times Medical daily for Branch 14 days. triamcinolo 2019-10 2020- No [id number] Apply to [facility] 10-23 area(s) 2 ity of acetonide 00:00: 05:59 (two) [place] 0.1 % cream 00 :00 times Medical daily for Branch 14 days. KCL 2019-10 2020- No 40meq 40 mEq, Univers (KLOR-CON -07 23- Oral, ONCE ity of M20) tablet 16:15: 16:23 NOW, 1 [place] 40 mEq 00 :00 dose, [facility] Medical 08/22/20 Branch at 1015, Routine HYDROmorpho 2019-10 Yes 1mg 1 mg, Unive rs ne 1- Oral, ity of (DILAUDID) 15:07: Q6HPRN, [place] tablet 1 mg 53 Starting Medi jose c [facility] Branch 08/22/20 at 0907, Until [...] acetonide 02:00: dose on [place] (TRIDERM) 00 Mon Medical 0.1 % cream 08/21/20 at Br anch 2000, Until Discontinu ed, Routine hydrOXYzine 2019-10 Yes 20mg 20 mg, Univ ers (ATARAX) 09 Oral, ity of tablet 20 17:39: Q8HPRN, [place] mg [address] [facility] Branch 08/21/20 at 1139, Until Discontinu ed, Routine, Itching, Anxiety sennosides- 2019-10 Yes 1{tbl} 1 tablet, Univers docusate 10-21 Oral, ity of sodium 15:00: DAILY, [place] (SENOKOT-S) 00 First dose Me dical 8.6-[address] [facility] Branch per tablet 08/21/20 at [...] [place] capsule [address] [facility] Medica l mg 08/21/20 at [...] 25 59 :43 Starting Medica l mg [facility] 08/21/20 at 0656, Until [facility] 08/21/20 at 1139, Routine, Itching, Mild Rash, Congestion /Allergies , alternate with hydroxyzin e hydrOXYzine 2019-10- No 10mg 10 mg, Uni vers (ATARAX) 10-21 Oral, ity of tablet 10 10:20: 12:57 Q6HPRN, [place] mg 22 :12 Starting [facility] 08/21/20 at 0420, Until [facility] 08/21/20 at 0657, Routine, Itching, Anxiety Sliding 2019-10 Yes Subcutaneo Univ ers Scale 10-21 us, Q4H, ity of Insulin - 10:00: First dose [place] Aspart 00 (after Medical (NOVOLOG) + last Branch Fsbg modificati Testing on) on [facility] 08/21/20 at 0400, Until Discontinu ed, Routine lidocaine 5 2019-10- No Topical, U nivers % ointment 10-21 ONCE, 1 ity o f 09:30: 09:14 dose, [facility] 00 :00 08/21/20 at [facility] 0330, Branch Routine Polyethylen 2019-10 Yes 17g 17 g, [facility] rs e Glycol 10-21 Oral, ity of 3350 08:29: [id number], [place] (MIRALAX) Starting Medica l powder 17 g [facility] 08/21/20 at 0229, Until Discontinu ed, Routine, Constipati on lanolin 2019-10 Yes Topical, Univer s alcohol-mo- 10-21 PRN, ity of w.pet-ceres 08:26: Starting [place] (EUCERIN) 30 [facility] cream 08/21/20 at Branch 0226, Until Discontinu ed, Routine, Dermatitis /Rash ALPRAZolam 2019-10 Yes .25mg 0.25 mg, Un toi (XANAX) 10-21 Oral, ity of tablet 0.25 08:25: BIDPRN, [place] mg 41 Starting [facility] 08/21/20 at 0225, Until Discontinu ed, [...] hours. Branch blood sugar Yes Use to [facility] ers diagnostic 4-25 check ity of (FREESTYLE 00:00: blood [place] LITE 00 glucose Medical STRIPS) 4-5 times Branch strip daily. blood sugar Yes Use to [facility] ers diagnostic 4-25 check ity of (FREESTYLE 00:00: blood [place] LITE 00 glucose Medical STRIPS) 4-5 times Branch strip daily. blood sugar Yes Use to [facility] ers diagnostic 4-25 check ity of (FREESTYLE 00:00: blood [place] LITE 00 glucose Medical STRIPS) 4-5 times Branch strip daily. blood sugar Yes Use to [facility] ers diagnostic 4-25 check ity of (FREESTYLE 00:00: blood [place] LITE 00 glucose Medical STRIPS) 4-5 times Branch strip daily. blood sugar Yes Use to [facility] ers diagnostic 4-25 check ity of (FREESTYLE [...] 13:00:00 84 mm[Hg] Unive rsity of pressure [place] Medical Branch Heart rate 2021-08-22 13:00:00 103 /min [facility] Respiratory rate 2021-08-22 13:00:00 18 /min Univ ersity of [facility] Branch Oxygen saturation in 2021-08-22 13:00:00 95 /min University of Arterial blood by [facility] Pulse oximetry Branch Body temperature 2021-08-22 12:22:00 36.72 [facility] ersity of [place] [facility] Systolic blood 2020-12-17 18:35:00 139 mm[Hg] Univer sity of pressure [place] [facility] Diastolic blood 2020-12-17 18:35:00 87 mm[Hg] Unive rsity of pressure [place] Medical Branch Heart rate 2020-12-17 18:35:00 110 /min [facility] Body temperature 2020-12-17 18:35:00 37.72 [facility] [place] [facility] Respiratory rate 2020-12-17 18:35:00 18 /min [facility] [place] [facility] Oxygen saturation in 2020-12-17 18:35:00 93 /min [facility] [place] [facility] Pulse oximetry Branch Body height 2020-12-12 08:21:00 [...] /min [facility] [place] inFreeDA jose c Pulse oximetry Branch Body height 2020-12-12 08:21:00 180.3 cm [facility] [place] [facility] [place] Body weight 2020-12-12 08:21:00 103.42 kg Universi [...] /min University of Arterial blood by [place] inFreeDA jose c Pulse oximetry Branch Body weight [...] Branch Body temperature 2020-08-23 19:27:00 36 [facility] Respiratory rate 2020-08-23 19:27:00 18 /min [facility] Oxygen saturation in 2020-08-23 19:27:00 93 /min University Arterial blood by [facility] Pulse oximetry [place] Body weight 2020-08-21 07:20:00 104.962 kg [facility] BMI 2020-08-21 07:20:00 32.27 kg/m2 [facility] Procedures Procedure Date / Time Performing Clinician Source Performed POCT GLUCOSE (AUTOMATED) 2020-12-17 15:42:00 Harrison[facility] BAS[facility] METABOLIC PANEL 2020-12-17 10:45:00 Paul Bean [facility] (NA, K, CL, CO2, GLUCOSE, [facility] BUN, CREATININE, CA) CBC WITH DIFF 2020-12-17 10:45:[address] [facility] POCT GLUCOSE (AUTOMATED) 2020-12-17 02:36:00 HarrisonFavio davisonal G Uni [facility] XR TIBIA FIBULA 2 VW LEFT 2020-12-16 23:38:00 Paul Bean U [facility] POCT GLUCOSE (AUTOMATED) 2020-12-16 23:20:00 Harrison, Premal G Uni [facility] POCT GLUCOSE (AUTOMATED) 2020-12-16 20:10:00 Harrison, Premal [facility] POCT GLUCOSE (AUTOMATED) 2020-12-16 14:43:00 Harrison, Premal G Uni [facility] BASIC METABOLIC PANEL 2020-12-16 13:51:00 Paul Bean [facility] (NA, K, CL, CO2, GLUCOSE, [facility] BUN, CREATININE, CA) CBC WITH DIFF 2020-12-16 13:51:[address] [facility] POCT GLUCOSE (AUTOMATED) 2020-12-16 04:00:00 Harrison, Premal [facility] POCT GLUCOSE (AUTOMATED) 2020-12-16 00:14:00 Harrison, Premal G Uni versity of [facility] CT CHEST PULMONARY 2020-12-15 22:29:38 Paul Bean [facility] ANGIOGRAM [facility] POCT GLUCOSE (AUTOMATED) 2020-12-15 19:26:00 Harrison, Premal G Uni vers[facility] POCT GLUCOSE (AUTOMATED) 2020-12-15 15:13:00 Harrison, Premal G Uni versity of [facility] HB ECG ROUTINE & RHYTHM 2020-12-15 14:25:27 Cailin Romo [facility] MAGNESIUM 2020-12-15 12:01:[address] [facility] BASIC METABOLIC PANEL 2020-12-15 12:01:00 Paul Bean [facility] (NA, K, CL, CO2, GLUCOSE, [facility] BUN, CREATININE, CA) CBC WITH DIFF 2020-12-15 12:01:[address] [facility] POCT GLUCOSE (AUTOMATED) 2020-12-15 03:57:00 Harrison, Premal G Uni [facility] POCT GLUCOSE (AUTOMATED) 2020-12-14 23:31:00 Harrison, Premal G Uni [facility] POCT GLUCOSE (AUTOMATED) 2020-12-14 19:08:00 Harrison, Premal G Uni [facility] POCT GLUCOSE (AUTOMATED) 2020-12-14 15:11:00 Harrison, Premal G Uni [facility] POCT GLUCOSE (AUTOMATED) 2020-12-14 02:36:00 Harrison, Premal G Uni [facility] POCT GLUCOSE (AUTOMATED) 2020-12-13 23:32:00 Harrison, Premal G Uni [facility] POCT GLUCOSE (AUTOMATED) 2020-12-13 18:08:00 Harrison, Premal G Uni [facility] BASIC METABOLIC PANEL 2020-12-13 15:39:00 Paul Bean [facility] (NA, K, CL, CO2, GLUCOSE, [facility] BUN, CREATININE, CA) CBC WITH DIFF 2020-12-13 15:39:[address] [facility] POCT GLUCOSE (AUTOMATED) 2020-12-13 14:06:00 Harrison, Premal [facility] POCT GLUCOSE (AUTOMATED) 2020-12-13 03:07:00 Harrison, Premal [facility] POCT GLUCOSE (AUTOMATED) 2020-12-12 23:52:00 Harrison, [facility]al [facility] POCT GLUCOSE (AUTOMATED) 2020-12-12 20:28:00 Harrison, Premal [facility] POCT GLUCOSE (AUTOMATED) 2020-12-12 19:14:00 Harrison, Premal [facility] POCT GLUCOSE (AUTOMATED) 2020-12-12 14:33:00 Harrison, Premal [facility] MAGNESIUM 2020-12-12 08:58:[address] [facility] BASIC METABOLIC PANEL 2020-12-12 08:58:00 [facility] (NA, K, CL, CO2, GLUCOSE, [facility] BUN, CREATININE, CA) CBC WITH DIFF 2020-12-12 08:58:[address] [facility] US ABDOMEN LIMITED 2020-12-12 06:32:26 [facility]SE (AUTOMATED) 2020-12-12 03:40:00 Harrison, Premal G Uni [facility] POCT GLUCOSE (AUTOMATED) 2020-12-12 00:06:00 Harrison, Premal G Uni [facility] XR HIPS 3 VW LEFT 2020-12-11 20:20:00 Vikas [facility] HB ECG ROUTINE & RHYTHM 2020-12-11 20:04:06 Cailin Romo [facility] VITAMIN B6, PLASMA 2020-12-11 19:17:00 [facility] PO[facility] GLUCOSE (AUTOMATED) 2020-12-11 19:06:00 Rene Harrison [facility] CREATINE KINASE 2020-12-11 18:22:00 Clarisse Hannon [facility] VITAMIN B12, LEVEL 2020-12-11 18:22:00 Paul [facility] FOLATE 2020-12-11 18:22:[address] THYROID STIMULATING 2020-12-11 18:22:00 Cailin Romo [facility] HORMONE [facility] PROCALCITONIN 2020-12-11 18:22:00 Vikas [facility] VITAMIN B1 (THIAMINE), 2020-12-11 18:22:00 Paul Bean Sivakumar [facility] WHOLE BLOOD [facility] CT HEAD WO CONTRAST 2020-12-11 14:07:35 Sweetie Stout [facility] URINALYSIS 2020-12-11 13:44:00 Singer [facility] URINE CULTURE 2020-12-11 13:44:00 Singer [facility] COVID-19 (ID NOW RAPID 2020-12-11 12:31:00 Paco Lacey [facility] TESTING) [facility] LAB ONLY COVID 2020-12-11 12:31:00 Singer Paco [facility] XR CHEST 1 VW 2020-12-11 12:07:24 Singer [facility] BLOOD CULTURE SCREEN 2020-12-11 12:02:00 Paco Lacey [facility] MAGNESIUM 2020-12-11 12:02:[address] [facility] FERRITIN SERUM 2020-12-11 12:02:[address] [facility] COMP. METABOLIC PANEL 2020-12-11 12:02:00 Paco Lacey [facility] ([id number]) [facility] Branch CBC WITH DIFF 2020-12-11 12:02:00 Singer [facility] LACTIC ACID WHOLE BLOOD 2020-12-11 12:02:00 Paco Lacey [facility] BLOOD CULTURE SCREEN 2020-12-11 11:42:00 Paco Lacey [facility] EMERGENCY SERVICES 2020-12-11 06:01:00 Doctor Tabitha [facility] AGREEMENTS AND [facility] AUTHORIZATIONS HOSPITAL ADMISSION 2020-12-11 06:01:00 Doctor Tabitha [facility] Name [facility] HOME HEALTH - OTHER 2020-11-11 06:01:00 Doctor Tabitha [facility] HEALTH - OTHER 2020-10-30 06:01:00 Doctor Tabitha [facility] Name [facility] EXTERNAL PROVIDER RECORDS 2020-09-01 06:01:00 Doctor Tabitha [facility] POCT GLUCOSE (AUTOMATED) 2020-08-23 18:09:00 [facility] POCT GLUCOSE (AUTOMATED) 2020-08-23 14:14:00 [facility] MAGNESIUM 2020-08-23 11:18:00 Crozier, [facility] BASIC METABOLIC PANEL 2020-08-23 11:18:00 [facility] (NA, K, CL, CO2, GLUCOSE, Medica l Branch BUN, CREATININE, CA) CBC WITH DIFF 2020-08-23 11:18:00 [facility] POCT GLUCOSE (AUTOMATED) 2020-08-23 10:21:00 Kelly Washingtonity [facility] POCT GLUCOSE (AUTOMATED) 2020-08-23 05:55:00 Kelly Washingtonity [facility] POCT GLUCOSE (AUTOMATED) 2020-08-23 03:00:00 [facility] POCT GLUCOSE (AUTOMATED) 2020-08-22 23:38:00 Kelly Washington versity [facility] POCT GLUCOSE (AUTOMATED) 2020-08-22 19:04:00 Kelly [facility] POCT GLUCOSE (AUTOMATED) 2020-08-22 13:49:00 Kelly Washington versity [facility] MAGNESIUM 2020-08-22 10:10:00 Ramya [facility] HEPATIC FUNCTION PANEL 2020-08-22 10:10:[address] [facility] ([id number]) (ALB,T.PRO,BILI Medical Branch T,BU/BC,ALT,AST,ALK PHOS) BASIC METABOLIC PANEL 2020-08-22 10:10:00 Crozier, [facility] (NA, K, CL, CO2, GLUCOSE, Medica l Branch BUN, CREATININE, CA) LIPID PANEL ([id number])(TOTAL 2020-08-22 10:10:00 Crozier, [facility] TRIGLY[facility], HDL) CBC WITH DIFF 2020-08-22 10:10:00 [facility] POCT GLUCOSE (AUTOMATED) 2020-08-22 10:10:00 [facility] POCT GLUCOSE (AUTOMATED) 2020-08-22 07:13:00 [facility] POCT GLUCOSE (AUTOMATED) 2020-08-22 02:24:00 [facility] POCT GLUCOSE (AUTOMATED) 2020-08-21 23:40:00 [facility] POCT GLUCOSE (AUTOMATED) 2020-08-21 18:10:00 [facility] POCT GLUCOSE (AUTOMATED) 2020-08-21 13:39:00 [facility] ETHANOL 2020-08-21 12:35:00 Jos Quiroz [facility] ACTIVATED PARTIAL 2020-08-21 12:35:00 Padmini Kelly [facility] THRMPLAS [facility] GALV ONLY - SYPHILIS 2020-08-21 12:35:00 Padmini Kelly [facility] IGG/IGM [facility] LACTATE DEHYDROGENASE 2020-08-21 10:09:00 Crozier, [facility] GALV/CLC ONLY - URINE 2020-08-21 10:09:00 Jos Quiroz [facility] DRUG (IMMUNOASSAY) - 4 ER Medica l Branch PANEL URINALYSIS 2020-08-21 10:09:00 Ramya, [facility] URINE CULTURE 2020-08-21 10:09:00 Ramya, [facility] PROCALCITONIN 2020-08-21 10:09:00 Armya, [facility] POCT GLUCOSE (AUTOMATED) 2020-08-21 09:41:00 [facility] PROTHROMBIN TIME / INR 2020-08-21 08:32:00 Ramya, [facility] ACTIVATED PARTIAL 2020-08-21 08:32:00 Crozier, [facility] THRMPLAS [facility] C-REACTIVE PROTEIN 2020-08-21 08:31:00 Crozier, [facility] HEPATIC FUNCTION PANEL 2020-08-21 08:31:00 Ramya, [facility] ([id number]) (ALB,T.PRO,BILI Medical [place] T,BU/BC,ALT,AST,ALK PHOS) BASIC METABOLIC PANEL 2020-08-21 08:31:00 Crozier, [facility] (NA, K, CL, CO2, GLUCOSE, [facility] [place] BUN, CREATININE, CA) SEDIMENTATION RATE 2020-08-21 08:31:00 Crozier, [facility] CBC WITH DIFF 2020-08-21 08:31:00 Crozier, [facility] GLYCOSYLATED HEMOGLOBIN 2020-08-21 08:31:00 Crozier, [facility] (A1C) [facility] HIV 1/2 AG-AB WITH REFLEX 2020-08-21 08:31:00 [facility] (ID NOW RAPID 2020-08-21 08:20:00 Crozier, [facility] TESTING) Medical Branch LAB ONLY COVID 2020-08-21 08:20:00 Ramya, [facility] Encounters Start End Encounter Admission Attending Care Care Encounter Source Date/Time Date/Time Type Type Clinicians Facility Department ID 2020-08-21 Inpatient Shayy [facility] [id number] Univers 01:07:00 KELLY cantu [facility] 2021-08-22 2021-08-22 [facility] [id number] Univers 06:21:00 08:02:00 SWEETIE cantu [facility] 2021-08-22 2021-08-22 [facility] [id number] Univers 06:21:00 08:02:00 Sweetie LOTT [id number] i [place] [phone] [facility] 084 [place] 2021-08-09 2021-08-09 Outpatient ZAKI, [facility] [id number] [facility] 10:27:03 10:27:03 ADRIANA lopez of Medicin e 2020-12-28 2020-12-28 Telephone [facility] 1.2.840.114 [id number] 00:00:00 00:00:00 Calvin H PRIMARY [id number] CARE 4.2.7.2.686 PAVILLION [id number] 220 2020-12-28 2020-12-28 Telephone [facility] 1.2.840.114 [id number] Univers 00:00:00 00:00:00 Calvin H PRIMARY [id number] it y of CARE 4.2.7.2.686 [facility] [id number] Nh dical 220 Branch 2020-12-19 2020-12-19 Transition Tuan Peters 1.2.840.114 [id number] 00:00:00 00:00:00 of Care Ruchi Braswell [id number] [place] 4.2.7.2.686 [id number] 2020-12-19 2020-12-19 Transition Tuan Peters 1.2.840.114 [id number] Univers 00:00:00 00:00:00 of Care Ruchi Braswell [id number] [place] [id number] [facility] 403 Branch 2020-12-11 2020-12-17 [facility] Paco Lacey 1.2.840.1 14 [id number] 05:11:00 16:00:00 Encounter Rene Harrison [place] [id number] [facility] 4.2.7.2.686 [id number] [facility] 2020-12-11 2020-12-17 [facility] 1.2.840.1 14 [id number] [facility] 05:11:00 16:00:00 Encounter Rene Harrison Monique [id number] ity of [facility] 4.2.7.2.686 [place] [id number] [facility] 096 [place] 2020-12-11 2020-12-11 Emergency X [facility] ERT [id number] Univers 05:11:00 05:11:00 [facility] 2020-11-16 2020-11-16 Emergency X [facility] ERT [id number] Univers 09:31:00 09:31:00 [facility] 2020-11-11 2020-11-11 Orders Doctor CUI 1.2.840.114 [id number] 00:00:00 00:00:00 Only Unassigned, MONIQUE 350.1.13.10 [place] [facility] 4.2.7.2.686 [id number] 2020-11-11 2020-11-11 Orders Doctor CUI 1.2.840.114 [id number] Univers 00:00:00 00:00:00 Only Unassigned, MONIQUE 350.1.13.10 ity of [place] [facility] 4.2.7.2.686 Jeff as [id number] [facility] 009 Branch 2020-11-07 2020-11-07 Telephone Wilder [facility] [id number] 00:00:00 00:00:00 Angi Lott 350.1.13.10 [place] 4.2.7.2.686 Professio [id number] [facility] 2020-11-07 2020-11-07 Telephone Hdz [facility] [id number] [facility] 00:00:00 00:00:00 Sendil DiegoAshely Lott 350.1.13.10 ity of [place] Profess[place] [id number] [place] [id number] [facility] 2020-10-30 2020-10-30 Orders Doctor BASILIA 1.2.840.114 [id number] 00:00:00 00:00:00 Only Unassigned, MONIQUE 350.1.13.10 [facility] 4.2.7.2.[id number] [facility] 2020-10-30 2020-10-30 Orders Doctor BASILIA 1.2.840.114 [id number] Univers 00:00:00 00:00:00 Only Unassigned, MONIQUE 350.1.13.10 ity of [facility] 4.2.7.2.686 Jeff as [id number] [address] 2020-09-26 2020-09-26 Telephone [facility] 1.2.840.114 [id number] 00:00:00 00:00:00 [facility] 350.1.13.10 CLINICS 4.2.7.2.686 [id number] [facility] 2020-09-26 2020-09-26 Telephone [facility] 1.2.840.114 [id number] Univers 00:00:00 00:00:00 [facility] 350.1.13.10 i ty of CL[place] [phone] [address] 2020-09-01 2020-09-01 Orders Doctor BASILIA 1.2.840.114 [id number] 00:00:00 00:00:00 Only Unassigned, MONIQUE 350.1.13.10 [facility] 4.2.7.2.686 [id number] 2020-09-01 2020-09-01 Orders Doctor BASILIA 1.2.840.114 [id number] Univers 00:00:00 00:00:00 Only Unassigned, MONIQUE 350.1.13.10 [facility] 4.2.7.2.686 Jeff as [id number] [facility] 009 Branch 2020-08-25 2020-08-25 Transition Tuan Peters 1.2.840.114 [id number] 00:00:00 00:00:00 of Care Ruchi Garciay 350.1.13.10 [place] 4.2.7.2.686 [id number] [facility] 2020-08-25 2020-08-25 Transition Tuan Peters 1.2.840.114 [id number] Univers 00:00:00 00:00:00 of Care Ruchi Garciay 350.1.13.10 it y [place] [id number] [address] 2020-08-21 2020-08-23 [facility] Ayleen 1.2.840.114 [id number] 01:07:00 18:35:00 Encounter Kelly Amaya 350.1.13.10 [facility] 4.2.7.2.686 [id number] [facility] 2020-08-21 2020-08-23 [facility] 1. 2.840.114 [id number] [facility] 01:07:00 18:35:00 Encounter Mukul Gallardo 350.1.13. 10 ity of [facility] 4.2.7.2.686 Jeff as [phone] [address] Results Test Description Test Time Test Comments Results Result Comments Source POCT GLUCOSE (AUTOMATED) 2020-12-17 15:43:35 Test Item Value Reference Range Interpretation Comme nts POCT GLU (test code = 8756453470) 129 mg/dL 70-110 H Lab Interpretation (test code = 94328-8) Abnormal [facility] METABOLIC PANEL (NA, K, CL, CO2, GLUCOSE, BUN, CREATININE, CA)2020-12-17 11:45:07 Test Item Value Reference Range Interpretation Comments NA (test code = 137 mmol/L 135-145 0009922687) K (test code = 3.5 mmol/L 3.5-5.0 6393238078) CL (test code = 103 mmol/L 98-108 7642331250) CO2 TOTAL (test code = 26 mmol/L 23-31 4313430402) AGAP (test code = 2-16 0892534966) BUN (test code = 11 mg/dL 7-23 6636594119) GLUCOSE (test code = 175 mg/dL 70-110 H 0666154631) CREATININE (test code = 0.62 mg/dL 0.60-1.25 1684901653) CALCIUM (test code = 9.0 mg/dL 8.6-10.6 0108420776) eGFR Calculation mL/min/1.73m2 (Non-) (test code = 6225143673) eGFR Calculation mL/min/1.73m2 () (test code = 6414916896) JAMES (test code = JAMES) Association of [...] tests). Lab Interpretation Abnormal (test code = 04960-4) [facility] WITH [id number] 11:07:27 Test Item Value Reference Range Interpretation [...] RDW-SD (test code = 45.2 fL 38.5-51.6 30213-7) RDW-CV (test code = 16.9 % 12.1-15.4 H 788-0) PLT (test code = See_Comment H [Automated 777-3) message] The sy stem which generated this result transmitted reference range : 150 - 328 10*3/ ?L. The reference r torito was not used to interpret this result as normal/abnormal . MPV (test code = 8.1 fL 9.8-13.0 L 05017-7) NRBC/100 WBC (test See_Comment [Automat ed code = 5610346597) message] The system which generated this result transmitted reference range : 0.0 - 10.0 /100 WBCs. The refer ence range was not u sed to interpret th is result as normal/abnormal . NRBC x10^3 (test code <0.01 See_Comment [Auto mated = 0268444169) message] The s ystem which generated this result transmitted reference range : 10*3/?L. The reference range was not used to interpret this result as normal/abnormal . GRAN MAT (NEUT) % 72.8 % (test code = 770-8) IMM GRAN % (test code 0.60 % = 7998593448) LYMPH % (test code = 18.4 % 736-9) MONO % (test code = 5.7 % 5905-5) EOS % (test code = 1.8 % 713-8) BASO % (test code = 0.7 % 706-2) GRAN MAT x10^3(ANC) 8.23 10*3/uL 1.99-6.95 H (test code = 6244875557) IMM GRAN x10^3 (test 0.07 10*3/uL 0.00-0.06 H code = 2927535164) LYMPH x10^3 (test code 2.08 10*3/uL 1.09-3.23 = 731-0) MONO x10^3 (test code 0.65 10*3/uL 0.36-1.02 = 742-7) EOS x10^3 (test code = 0.20 10*3/uL 0.06-0.53 711-2) BASO x10^3 (test code 0.08 10*3/uL 0.01-0.09 = 704-7) Lab Interpretation Abnormal (test code = 50211-1) [facility]2020-12-17 06:03:38 Test Item Value Reference Range Interpretation Comments POCT GLU (test code = 9102025015) 75 mg/dL 70-110 Lab Interpretation (test code = Normal 72385-5) [facility]IT[facility] B6, [id number] 00:01:00 Test Item Value Reference Range Interpretation Comments VIT B6 (test code = 13.1 nmol/L 20.0-125.0 L INTERPRE TIVE 40291-7) INFORMATION: Vi tamin B6 (Pyridoxal 5-Phosphate) Pyridoxal [...] intended for cl inical purposes.Perfor med By: [employer] [place] [address] [id number] Director: Namrata Klein MD Lab Interpretation Abnormal (test code = 66536-6) [facility] TIBIA FIBULA 2 VW [id number] 23:57:09 Tricompartmental knee joint osteoarthrosis.XR TIBIA FIBULA [...] No acute fracture or dislocation.IMPRESSIONTricompartmental knee joint osteoarthrosis.[facility] GLUCOSE (AUTOMATED) 2020-12-16 23:27:00 Test Item Value Reference Range Interpretation Comments POCT GLU (test code = 2371180251) 114 mg/dL 70-110 H Lab Interpretation (test code = Abnormal 37468-3) [facility] GLUCOSE (AUTOMATED)2020-12-16 20:12:00 Test Item Value Reference Range Interpretation Comments POCT GLU (test code = 4358971409) 105 mg/dL 70-110 Lab Interpretation (test code = Normal 28459-9) [facility] GLUCOSE (AUTOMATED)2020-12-16 14:44:00 Test Item Value Reference Range Interpretation Comments POCT GLU (test code = 7697442960) 153 mg/dL 70-110 H Lab Interpretation (test code = Abnormal 33453-2) [facility] METABOLIC PANEL (NA, K, CL, CO2, GLUCOSE, BUN, CREATININE, CA)2020-12-16 14:23:00 Test Item Value Reference Range Interpretation Comments NA (test code = 138 mmol/L 135-145 1988079481) K (test code = 3.4 mmol/L 3.5-5.0 L 8899141517) CL (test code = 100 mmol/L 98-108 7276583876) CO2 TOTAL (test code = 31 mmol/L 23-31 8406722781) AGAP (test code = 2-16 7248152301) BUN (test code = 11 mg/dL 7-23 7790530615) GLUCOSE (test code = 162 mg/dL 70-110 H 8950173729) CREATININE (test code = 0.64 mg/dL 0.60-1.25 4461890735) CALCIUM (test code = 8.9 mg/dL 8.6-10.6 3565442910) eGFR Calculation mL/min/1.73m2 (Non-) (test code = 0326828642) eGFR Calculation mL/min/1.73m2 () (test code = 7727903861) JAMES (test code = JAMES) Association of [...] tests). Lab Interpretation Abnormal (test code = 30072-3) [facility] WITH [id number] 14:05:00 Test Item Value Reference Range Interpretation [...] RDW-SD (test code = 45.4 fL 38.5-51.6 87533-1) RDW-CV (test code = 17.0 % 12.1-15.4 H 788-0) PLT (test code = See_Comment H [Automated 777-3) message] The sy stem which generated this result transmitted reference range : 150 - 328 10*3/ ?L. The reference r torito was not used to interpret this result as normal/abnormal . MPV (test code = 8.0 fL 9.8-13.0 L 02683-4) NRBC/100 WBC (test See_Comment [Automat ed code = 8650860948) message] The system which generated this result transmitted reference range : 0.0 - 10.0 /100 WBCs. The refer ence range was not u sed to interpret th is result as normal/abnormal . NRBC x10^3 (test code <0.01 See_Comment [Auto mated = 2580196502) message] The s ystem which generated this result transmitted reference range : 10*3/?L. The reference range was not used to interpret this result as normal/abnormal . GRAN MAT (NEUT) % 70.0 % (test code = 770-8) IMM GRAN % (test code 0.70 % = 5423931230) LYMPH % (test code = 20.5 % 736-9) MONO % (test code = 7.1 % 5905-5) EOS % (test code = 1.0 % 713-8) BASO % (test code = 0.7 % 706-2) GRAN MAT x10^3(ANC) 9.44 10*3/uL 1.99-6.95 H (test code = 8409882465) IMM GRAN x10^3 (test 0.09 10*3/uL 0.00-0.06 H code = 5427242058) LYMPH x10^3 (test code 2.76 10*3/uL 1.09-3.23 = 731-0) MONO x10^3 (test code 0.96 10*3/uL 0.36-1.02 = 742-7) EOS x10^3 (test code = 0.13 10*3/uL 0.06-0.53 711-2) BASO x10^3 (test code 0.10 10*3/uL 0.01-0.09 H = 704-7) Lab Interpretation Abnormal (test code = 04310-8) [facility] Culture - Peripheral # [id number] 13:01:00 Test Item Value Reference Range Interpretation Comments Blood Culture-Aerobic No organisms No growth Previo us (test code = 63731-3) isolated prelim inary verified result was Culture In Progress on 12/11/2020 at 100 1 CSTPrevious preliminary verified result was No growth a t 24 hours on 12/12/2020 at 070 1 CSTPrevious preliminary verified result was No growth a t 48 hours on 12/13/2020 at 070 1 CSTPrevious preliminary verified result was No growth a t 72 hours on 12/14/2020 at 070 1 [employer] Blood No organisms No growth Previous Culture-Anaerobic isolated preliminar y (test code = 33990-3) verifi ed result was Culture In Progress on 12/11/2020 at 100 1 CSTPrevious preliminary verified result was No growth a t 24 hours on 12/12/2020 at 070 1 CSTPrevious preliminary verified result was No growth a t 48 hours on 12/13/2020 at 070 1 CSTPrevious preliminary verified result was No growth a t 72 hours on 12/14/2020 at 070 1 [employer] LE[employer] Lab Interpretation Normal (test code = 95097-9) [facility] # [id number] 13:01:00 Test Item Value Reference Range Interpretation Comments Blood Culture-Aerobic No organisms No growth Previo us (test code = 18211-9) isolated prelim inary verified result was Culture In Progress on 12/11/2020 at 100 1 CSTPrevious preliminary verified result was No growth a t 24 hours on 12/12/2020 at 070 1 CSTPrevious preliminary verified result was No growth a t 48 hours on 12/13/2020 at 070 1 CSTPrevious preliminary verified result was No growth a t 72 hours on 12/14/2020 at 070 1 [employer] Blood No organisms No growth Previous Culture-Anaerobic isolated preliminar y (test code = 59994-5) verifi ed result was Culture In Progress on 12/11/2020 at 100 1 CSTPrevious preliminary verified result was No growth a t 24 hours on 12/12/2020 at 070 1 CSTPrevious preliminary verified result was No growth a t 48 hours on 12/13/2020 at 070 1 CSTPrevious preliminary verified result was No growth a t 72 hours on 12/14/2020 at 070 1 SAL[employer] LE[employer] Lab Interpretation Normal (test code = 31448-5) [facility] GLUCOSE (AUTOMATED)2020-12-16 04:01:00 Test Item Value Reference Range Interpretation Comments POCT GLU (test code = 3267749228) 156 mg/dL 70-110 H Lab Interpretation (test code = Abnormal 55346-2) [facility] GLUCOSE (AUTOMATED)2020-12-16 00:24:00 Test Item Value Reference Range Interpretation Comments POCT GLU (test code = 8419419409) 115 mg/dL 70-110 H Lab Interpretation (test code = Abnormal 14648-4) [facility] CHEST PULMONARY [id number] 23:34:55No pulmonary emboli. No interval change in [...] of intra and extrahepatic biliary du ctal dilatation.[facility] GLUCOSE (AUTOMATED) 2020-12-15 19:28:00 Test Item Value Reference Range Interpretation Comments POCT GLU (test code = 2010984454) 140 mg/dL 70-110 H Lab Interpretation (test code = Abnormal 08171-4) [facility] FallsMAGNESIUM2021-03-05 15:26:00 Test Item Value Reference Range Interpretation Comments MAGNESIUM (test code = 6426408417) 2.2 mg/dL 1.7-2.4 Lab Interpretation (test code = Normal 36611-6) [facility]PO[facility]2020-12-15 15:15:00 Test Item Value Reference Range Interpretation Comments POCT GLU (test code = 8122753966) 181 mg/dL 70-110 H Lab Interpretation (test code = Abnormal 71280-1) [facility] (NA, K, CL, CO2, GLUCOSE, BUN, CREATININE, CA)2020-12-15 13:07:00 Test Item Value Reference Range Interpretation Comments NA (test code = 136 mmol/L 135-145 6945209484) K (test code = 3.6 mmol/L 3.5-5.0 5587137002) CL (test code = 96 mmol/L 98-108 L 2433141622) CO2 TOTAL (test code = 29 mmol/L 23-31 0078056719) AGAP (test code = 2-16 5671105703) BUN (test code = 12 mg/dL 7-23 1447541077) GLUCOSE (test code = 183 mg/dL 70-110 H 6339164300) CREATININE (test code = 0.70 mg/dL 0.60-1.25 2445260939) CALCIUM (test code = 9.2 mg/dL 8.6-10.6 3594651996) eGFR Calculation mL/min/1.73m2 (Non-) (test code = 6582316795) eGFR Calculation mL/min/1.73m2 () (test code = 3872008419) JAMES (test code = JAMES) Association of [...] tests). Lab Interpretation Abnormal (test code = 06378-3) [facility] WITH [id number] 12:32:00 Test Item Value Reference Range Interpretation Comments WBC (test code = See_Comment H [Automated 8590-2) message] The system which generated this result transmit ronan reference range : 4.20 - 10.70 10*3/?L. The reference range was not used to interpret this result as normal/abnormal . RBC (test code = See_Comment H [Automated 749-8) message] The system which generated this result [...] RDW-SD (test code = 44.4 fL 38.5-51.6 43779-3) RDW-CV (test code = 17.7 % 12.1-15.4 H 788-0) PLT (test code = See_Comment H [Automated 777-3) message] The system which generated this result transmit ronan reference range : 150 - 328 10*3/ ?L. The reference range was not u sed to interpret th is result as normal/abnormal . MPV (test code = 8.1 fL 9.8-13.0 L 36382-8) NRBC/100 WBC (test See_Comment [Automat ed code = 1082340453) message] The system which generated this result transmit ronan reference range : 0.0 - 10.0 /100 WBCs. The reference range was not used to interpret this result as normal/abnormal . NRBC x10^3 (test code <0.01 See_Comment [Auto mated = 0764887064) message] The system which generated this result transmit ronan reference range : 10*3/?L. The reference range was not used to interpret this result as normal/abnormal . GRAN MAT (NEUT) % 74.5 % (test code = 770-8) IMM GRAN % (test code 0.70 % = 7341791240) LYMPH % (test code = 17.4 % 736-9) MONO % (test code = 6.8 % 5905-5) EOS % (test code = 0.2 % 713-8) BASO % (test code = 0.4 % 706-2) GRAN MAT x10^3(ANC) 11.99 10*3/uL 1.99-6.95 H (test code = 4104690636) IMM GRAN x10^3 (test 0.11 10*3/uL 0.00-0.06 H code = 1742666575) LYMPH x10^3 (test code 2.80 10*3/uL 1.09-3.23 = 731-0) MONO x10^3 (test code 1.10 10*3/uL 0.36-1.02 H = 742-7) EOS x10^3 (test code = 0.03 10*3/uL 0.06-0.53 L 711-2) BASO x10^3 (test code 0.06 10*3/uL 0.01-0.09 = 704-7) Lab Interpretation Abnormal (test code = 45220-7) [facility] GLUCOSE (AUTOMATED)2020-12-15 04:16:00 Test Item Value Reference Range Interpretation Comments POCT GLU (test code = 4228519590) 200 mg/dL 70-110 H Lab Interpretation (test code = Abnormal 38033-6) [facility] FallsVITAMIN B1 (THIAMINE), WHOLE [id number] 00:30:00 Test Item Value Reference Range Interpretation Comments Vitamin B1, Whole 136 nmol/L 70-180 INTERPRETI VE INFORMATION: Blood (test code = Vitamin B 1, Whole Blood 64920-2) This assay júnior ures the concentration o f thiamine diphosphate (TD P), the primary active form of vitamin B1. Nick roximately 90 percent of v itamin B1 present in whol e blood is TDP. Thiamine a nd thiamine monoph osphate, which comprise the remaining 10 pe rcent, are not measured. T his test was developed a nd its performance characteristics determined by [facility]. I t has not been cleared or approved by the [place] Food and Drug Administration. This test was performed i n a CLIA certified labor atory and is intended for clinical purposes.Perfor med By: [facility] [place] [address] [id number] aboratory Director: Namrata Klein MD [facility] GLUCOSE (AUTOMATED)2020-12-14 23:35:00 Test Item Value Reference Range Interpretation Comments POCT GLU (test code = 4420585319) 151 mg/dL 70-110 H Lab Interpretation (test code = Abnormal 70964-5) [facility] GLUCOSE (AUTOMATED)2020-12-14 19:19:00 Test Item Value Reference Range Interpretation Comments POCT GLU (test code = 5056626585) 193 mg/dL 70-110 H Lab Interpretation (test code = Abnormal 77085-1) [facility] GLUCOSE (AUTOMATED)2020-12-14 15:22:00 Test Item Value Reference Range Interpretation Comments POCT GLU (test code = 1336132028) 221 mg/dL 70-110 H Lab Interpretation (test code = Abnormal 73013-7) [facility] GLUCOSE (AUTOMATED)2020-12-14 02:37:00 Test Item Value Reference Range Interpretation Comments POCT GLU (test code = 8367284814) 210 mg/dL 70-110 H Lab Interpretation (test code = Abnormal 44231-9) [facility] GLUCOSE (AUTOMATED)2020-12-13 23:33:00 Test Item Value Reference Range Interpretation Comments POCT GLU (test code = 3059820049) 182 mg/dL 70-110 H Lab Interpretation (test code = Abnormal 91511-5) [facility] GLUCOSE (AUTOMATED)2020-12-13 18:09:00 Test Item Value Reference Range Interpretation Comments POCT GLU (test code = 8466662788) 150 mg/dL 70-110 H Lab Interpretation (test code = Abnormal 66721-3) [facility] METABOLIC PANEL (NA, K, CL, CO2, GLUCOSE, BUN, CREATININE, CA)2020-12-13 16:27:00 Test Item Value Reference Range Interpretation Comments NA (test code = 136 mmol/L 135-145 0052200097) K (test code = 3.7 mmol/L 3.5-5.0 1609950986) CL (test code = 96 mmol/L 98-108 L 9440252953) CO2 TOTAL (test code = 29 mmol/L 23-31 0071337361) AGAP (test code = 2-16 0708305987) BUN (test code = 6 mg/dL 7-23 L 4550845069) GLUCOSE (test code = 212 mg/dL 70-110 H 9225868646) CREATININE (test code = 0.61 mg/dL 0.60-1.25 5926644026) CALCIUM (test code = 9.5 mg/dL 8.6-10.6 7582996172) eGFR Calculation mL/min/1.73m2 (Non-) (test code = 7610324623) eGFR Calculation mL/min/1.73m2 () (test code = 3930237197) JAMES (test code = JAMES) Association of [...] tests). Lab Interpretation Abnormal (test code = 40860-6) [facility] WITH [id number] 16:10:00 Test Item Value Reference Range Interpretation Comments WBC (test code = See_Comment H [Automated 0190-2) message] The sy stem which generated this result transmitted reference range : 4.20 - 10.70 10*3/?L. The reference range was not used to interpret this result as normal/abnormal . RBC (test code = See_Comment H [Automated 939-8) message] The sy stem which generated this [...] RDW-SD (test code = 43.3 fL 38.5-51.6 70749-3) RDW-CV (test code = 16.2 % 12.1-15.4 H 788-0) PLT (test code = See_Comment H [Automated 777-3) message] The sy stem which generated this result transmitted reference range : 150 - 328 10*3/ ?L. The reference r torito was not used to interpret this result as normal/abnormal . MPV (test code = 8.2 fL 9.8-13.0 L 83108-9) NRBC/100 WBC (test See_Comment [Automat ed code = 1597425274) message] The system which generated this result transmitted reference range : 0.0 - 10.0 /100 WBCs. The refer ence range was not u sed to interpret th is result as normal/abnormal . NRBC x10^3 (test code <0.01 See_Comment [Auto mated = 6292593991) message] The s ystem which generated this result transmitted reference range : 10*3/?L. The reference range was not used to interpret this result as normal/abnormal . GRAN MAT (NEUT) % 86.2 % (test code = 770-8) IMM GRAN % (test code 0.70 % = 7197313896) LYMPH % (test code = 10.2 % 736-9) MONO % (test code = 2.5 % 5905-5) EOS % (test code = 0.1 % 713-8) BASO % (test code = 0.3 % 706-2) GRAN MAT x10^3(ANC) 9.61 10*3/uL 1.99-6.95 H (test code = 4872171253) IMM GRAN x10^3 (test 0.08 10*3/uL 0.00-0.06 H code = 9261692577) LYMPH x10^3 (test code 1.14 10*3/uL 1.09-3.23 = 731-0) MONO x10^3 (test code 0.28 10*3/uL 0.36-1.02 L = 742-7) EOS x10^3 (test code = <0.03 0.06-0.53 L 711-2) BASO x10^3 (test code 0.03 10*3/uL 0.01-0.09 = 704-7) Lab Interpretation Abnormal (test code = 22593-7) [facility] GLUCOSE (AUTOMATED)2020-12-13 14:16:00 Test Item Value Reference Range Interpretation Comments POCT GLU (test code = 1088095637) 236 mg/dL 70-110 H Lab Interpretation (test code = Abnormal 51133-1) [facility] FallsLAB ONLY COVID [id number] 04:58:00COVID DMT InterpretationInterpretation/Recommendations: Molecular NAAT Tests for [...] COVID-19 testing the patient has had at [facility], including molecular NAAT testing (more commonly known as PCR testing and Rapid ID Now testing) and antibody testing. It does not take into account any testing that a patient has had outside of the [facility] medical record. [facility] LABORATORY SERVICESCOVID Resu [id number] Rapid ID NOW (no units) ? ? Date ? Value ? 12/11/2020 ? Not Detected ? ? ? 11/16/2020 ? Not Detected ? ? ? 08/21/2020 ?Not Detected ? [facility] 2020-12-13 03:11:00 Test Item Value Reference Range Interpretation Comments POCT GLU (test code = 4345182685) 171 mg/dL 70-110 H Lab Interpretation (test code = Abnormal 83872-0) [facility] GLUCOSE (AUTOMATED)2020-12-13 00:00:00 Test Item Value Reference Range Interpretation Comments POCT GLU (test code = 3942183269) 118 mg/dL 70-110 H Lab Interpretation (test code = Abnormal 34618-5) [facility] GLUCOSE (AUTOMATED)2020-12-12 20:29:00 Test Item Value Reference Range Interpretation Comments POCT GLU (test code = 9361499417) 173 mg/dL 70-110 H Lab Interpretation (test code = Abnormal 81675-4) [facility] FallsUS ABDOMEN [id number] 19:56:17 1. ?Hepatic steatosis. However, limited evaluation [...] main portal veinwasevaluated with color Doppler imaging. Crm Specialist images were obtainedfor the record. COMPARISON: Ultrasound [...] normal where visualized. SPLEEN:No images were obtained. [facility], Radiant Results Inft User - 12/12/2020 1:57 PM CSTEXAM: US ABDOMEN LIMITEDHISTORY: 70 years-old male with RUQ ultrasound to assess for common bileduct dilation .TECHNIQUE: Limited abdominal ultrasound focused on the liver, biliarysystem, pancreas, and spleen was performed. The main portal vein wasevaluated with color Doppler imaging. Crm Specialist images were obtainedfor the record.COMPARISON: Ultrasound abdomen [...] with the abovereport. [facility]PO[facility] GLU[facility]SE (AUTOMATED)2020-12-12 19:24:00 Test Item Value Reference Range Interpretation Comments POCT GLU (test code = 3712209670) 230 mg/dL 70-110 H Lab Interpretation (test code = Abnormal 66453-6) [facility] FallsXR CHEST 1 [id number] 15:16:46 Low lung volumes with mild perihilar [...] agree with theabove report.[facility] FallsPOCT GLU[facility]SE (AUTOMATED)2020-12-12 14:34:00 Test Item Value Reference Range Interpretation Comments POCT GLU (test code = 4831416450) 225 mg/dL 70-110 H Lab Interpretation (test code = Abnormal 76010-1) [facility] FallsURINE [id number] 13:28:00 Test Item Value Reference Range Interpretation Comments URINE CULTURE (test < 10,000 CFU/mL mixed code = 630-4) aerobic organisms - suggests endogenous microbial contamination [facility] FallsBasic Metabolic Panel (NA, K, CL, CO2, GLUCOSE, BUN, CREATININE, CA)2020-12-12 10:05:00 Test Item Value Reference Range Interpretation Comments NA (test code = 136 mmol/L 135-145 8146497055) K (test code = 3.5 mmol/L 3.5-5.0 9659145674) CL (test code = 100 mmol/L 98-108 0483361866) CO2 TOTAL (test code = 31 mmol/L 23-31 0426186851) AGAP (test code = 2-16 1016283238) BUN (test code = 7 mg/dL 7-23 9155460232) GLUCOSE (test code = 259 mg/dL 70-110 H 2272524956) CREATININE (test code = 0.63 mg/dL 0.60-1.25 6008542372) CALCIUM (test code = 8.5 mg/dL 8.6-10.6 L 7620438182) eGFR Calculation mL/min/1.73m2 (Non-) (test code = 8873757366) eGFR Calculation mL/min/1.73m2 () (test code = 9225111168) JAMES (test code = JAMES) Association of [...] tests). Lab Interpretation Abnormal (test code = 84937-7) [facility] FallsMagnesium [id number] 10:05:00 Test Item Value Reference Range Interpretation Comments MAGNESIUM (test code = 7691551718) 1.9 mg/dL 1.7-2.4 Lab Interpretation (test code = Normal 51695-9) [facility] with [id number] 09:48:00 Test Item Value Reference Range Interpretation Comments WBC (test code = See_Comment [Automated 0334-2) message] The sy stem which generated this result transmitted reference range : 4.20 - 10.70 10*3/?L. The reference range was not used to interpret this result as normal/abnormal . RBC (test code = See_Comment [Automated 613-0) message] The sy stem which generated this [...] RDW-SD (test code = 46.0 fL 38.5-51.6 57839-6) RDW-CV (test code = 16.1 % 12.1-15.4 H 788-0) PLT (test code = See_Comment H [Automated 777-3) message] The sy stem which generated this result transmitted reference range : 150 - 328 10*3/ ?L. The reference r torito was not used to interpret this result as normal/abnormal . MPV (test code = 8.6 fL 9.8-13.0 L 29355-4) NRBC/100 WBC (test See_Comment [Automat ed code = 3135697653) message] The system which generated this result transmitted reference range : 0.0 - 10.0 /100 WBCs. The refer ence range was not u sed to interpret th is result as normal/abnormal . NRBC x10^3 (test code <0.01 See_Comment [Auto mated = 0377738242) message] The s ystem which generated this result transmitted reference range : 10*3/?L. The reference range was not used to interpret this result as normal/abnormal . GRAN MAT (NEUT) % 70.2 % (test code = 770-8) IMM GRAN % (test code 0.30 % = 9771798127) LYMPH % (test code = 18.8 % 736-9) MONO % (test code = 5.0 % 5905-5) EOS % (test code = 5.2 % 713-8) BASO % (test code = 0.5 % 706-2) GRAN MAT x10^3(ANC) 6.05 10*3/uL 1.99-6.95 (test code = 2367632621) IMM GRAN x10^3 (test 0.03 10*3/uL 0.00-0.06 code = 4258212906) LYMPH x10^3 (test code 1.62 10*3/uL 1.09-3.23 = 731-0) MONO x10^3 (test code 0.43 10*3/uL 0.36-1.02 = 742-7) EOS x10^3 (test code = 0.45 10*3/uL 0.06-0.53 711-2) BASO x10^3 (test code 0.04 10*3/uL 0.01-0.09 = 704-7) Lab Interpretation Abnormal (test code = 08471-0) [facility] GLUCOSE (AUTOMATED)2020-12-12 03:42:00 Test Item Value Reference Range Interpretation Comments POCT GLU (test code = 196 mg/dL 70-110 H Notifi ed Provider 9878298073) Lab Interpretation (test Abnormal code = 11090-5) [facility] FallsFOLATE2021-03-02 02:24:00 Test Item Value Reference Range Interpretation Comments FOLATE SER (test code = 7675035150) 5.8 ng/mL 3.0-20.0 Lab Interpretation (test code = Normal 82805-5) [facility] FallsVITAMIN B12, [id number] 00:55:00 Test Item Value Reference Range Interpretation Comments VIT B12 (test code = 844 pg/mL 240-930 8385677670) JAMES (test code = JAMES) Biotin has been reported to cause a positive bias, interpret results relative to patient's use of biotin. Lab Interpretation (test Normal code = 20989-2) [facility] GLUCOSE (AUTOMATED)2020-12-12 00:14:00 Test Item Value Reference Range Interpretation Comments POCT GLU (test code = 3388395820) 164 mg/dL 70-110 H Lab Interpretation (test code = Abnormal 93812-7) [facility] FallsCREATINE [id number] 23:42:00 Test Item Value Reference Range Interpretation Comments CK (test code = 8979148147) <20 33-194 L Lab Interpretation (test code = Abnormal 14187-1) [facility] FallsTHYROID STIMULATING [id number] 23:17:00 Test Item Value Reference Range Interpretation Comments TSH (test code = See_Comment Biotin has been 5061025560) reported to cau se a negative bias, interpret resul ts relative to pat ient's use of biotin. [Automated mess age] The system whic h generated this result transmitted ref erence range: 0.45 - 4 .70 mIU/L. The refe rence range was not u sed to interpret this result as normal/abnor mal. Lab Interpretation (test Normal code = 09071-3) [facility] FallsXR HIPS 3 VW [id number] 21:41:53No appreciable fracture lines. RL: 6200 ICAL [...] fracture lines.RL: 6200 [facility] CenterPROCALCITONIN2021-03-01 20:00:00 Test Item Value Reference Range Interpretation Comments Procalcitonin (test 0.13 ng/mL <0.07 H code = 4779446405) JAMES (test code = JAMES) INTERPRETATION OF [...] lung abscess/empyema. For further information please refer to:[email or web address] Lab Interpretation Abnormal (test code = 08554-6) [facility] FallsPOCT GLUCOSE (AUTOMATED)2020-12-11 19:07:00 Test Item Value Reference Range Interpretation Comments POCT GLU (test code = 9129952294) 274 mg/dL 70-110 H Lab Interpretation (test code = Abnormal 43672-4) [facility] FallsMAGNESIUM2021-03-01 18:31:00 Test Item Value Reference Range Interpretation Comments MAGNESIUM (test code = 0101650495) 1.9 mg/dL 1.7-2.4 Lab Interpretation (test code = Normal 88030-1) [facility] FallsFERRITIN [id number] 18:31:00 Test Item Value Reference Range Interpretation Comments FERRITIN (test code = 178.0 ng/mL 18.0-464.0 6883778241) JAMES (test code = JAMES) Biotin has been reported to cause a negative bias, interpret results relative to patient's use of biotin. Lab Interpretation (test Normal code = 47838-7) [facility] FallsCT HEAD WO [id number] 14:36:47 No acute intracranial abnormality. Dilated ventricles [...] agree with the abovereport.[facility] FallsURINALYSIS2021-03-01 14:28:00 Test Item Value Reference Range Interpretation Comments APPEARANCE (test code = Clear Clear 5555519680) COLOR (test code = Yellow Yellow 6687711594) PH (test code = 4.8-8.0 5675626758) SP GRAVITY (test code = 1.003-1.030 0757214004) GLU U QUAL (test code = 500 mg/dL Normal A 1153326561) BLOOD (test code = Negative Negative 9389562040) KETONES (test code = 5 mg/dL Negative A 3182684453) PROTEIN (test code = Negative Negative 2887-8) UROBILIN (test code = Normal Normal 1359597282) BILIRUBIN (test code = Negative Negative 7486996902) NITRITE (test code = Negative Negative 3494618644) LEUK RYAN (test code = Negative Negative 8743362202) RBC/HPF (test code = See_Comment [Autom ated message] 8497502901) The system [employer] generated this result transmit ronan reference range : 0 - 3 HPF. The refe rence range was not u sed to interpret th is result as normal/abnormal . WBC/HPF (test code = See_Comment [Autom ated message] 5893376873) The system [employer] generated this result transmit ronan reference range : 0 - 5 HPF. The refe rence range was not u sed to interpret th is result as normal/abnormal . BACTERIA (test code = Negative Negative 3642256740) MUCOUS (test code = Slight Negative LPF A 9983750479) SQ EPITH (test code = HPF 0510805466) Lab Interpretation (test Abnormal code = 68693-5) [facility] FallsCOVID-19 (ID NOW RAPID TESTING)2020-12-11 13:10:00 Test Item Value Reference Range Interpretation Comments SARS-CoV-2 Rapid ID NOW Not Detected Not Detected (test code = 65467-0) JAMES (test code = JAMES) ID NOW COVID-19 Assay is an isothermal nucleic acid amplification test intended for the qualitative detection of nucleic acid from SARS-CoV-2 viral RNA in nasopharyngeal (MAINTENANCE TECH) specimens. It is used under Emergency Use [...] indicated. Lab Interpretation Normal (test code = 96432-9) [facility] FallsCOMP. METABOLIC PANEL (97993)2020-12-11 12:29:00 Test Item Value Reference Range Interpretation Comments NA (test code = 136 mmol/L 135-145 2626067097) K (test code = 3.5 mmol/L 3.5-5.0 0517737789) CL (test code = 95 mmol/L 98-108 L 9298092584) CO2 TOTAL (test code = 35 mmol/L 23-31 H 2948236820) AGAP (test code = 2-16 5511098928) BUN (test code = 9 mg/dL 7-23 4366962960) GLUCOSE (test code = 329 mg/dL 70-110 H 5357925637) CREATININE (test code = 0.72 mg/dL 0.60-1.25 3675640557) TOTAL BILI (test code = 0.6 mg/dL 0.1-1.3 1973108927) CALCIUM (test code = 9.0 mg/dL 8.6-10.6 5804925359) T PROTEIN (test code = 6.8 g/dL 6.3-8.2 9300316752) ALBUMIN (test code = 3.8 g/dL 3.5-5.0 8831739724) ALK PHOS (test code = 288 U/L 34-122 H 6702709797) ALTv (test code = 46 U/L 5-50 1741-6) AST(SGOT) (test code = 38 U/L 13-40 3437373119) eGFR Calculation mL/min/1.73m2 (Non-) (test code = 4869207655) eGFR Calculation mL/min/1.73m2 () (test code = 6091134189) JAMES (test code = JAMES) Association of [...] tests). Lab Interpretation Abnormal (test code = 92344-4) [facility] FallsLactic Acid Whole [id number] 12:23:00 Test Item Value Reference Range Interpretation Comments LACTIC ACID (test code = 2.09 mmol/L 0.50-2.20 5198354038) Lab Interpretation (test code = Normal 11431-4) [facility] FallsCB WITH [id number] 12:17:00 Test Item Value Reference Range Interpretation [...] RDW-SD (test code = 44.9 fL 38.5-51.6 45394-7) RDW-CV (test code = 15.9 % 12.1-15.4 H 788-0) PLT (test code = See_Comment H [Automated 777-3) message] The sy stem which generated this result transmitted reference range : 150 - 328 10*3/ ?L. The reference r torito was not used to interpret this result as normal/abnormal . MPV (test code = 8.3 fL 9.8-13.0 L 51508-7) NRBC/100 WBC (test See_Comment [Automat ed code = 0930916002) message] The system which generated this result transmitted reference range : 0.0 - 10.0 /100 WBCs. The refer ence range was not u sed to interpret th is result as normal/abnormal . NRBC x10^3 (test code <0.01 See_Comment [Auto mated = 1990454628) message] The s ystem which generated this result transmitted reference range : 10*3/?L. The reference range was not used to interpret this result as normal/abnormal . GRAN MAT (NEUT) % 77.9 % (test code = 770-8) IMM GRAN % (test code 0.50 % = 5514947610) LYMPH % (test code = 12.2 % 736-9) MONO % (test code = 5.2 % 5905-5) EOS % (test code = 3.7 % 713-8) BASO % (test code = 0.5 % 706-2) GRAN MAT x10^3(ANC) 9.57 10*3/uL 1.99-6.95 H (test code = 3126202435) IMM GRAN x10^3 (test 0.06 10*3/uL 0.00-0.06 code = 5480286909) LYMPH x10^3 (test code 1.50 10*3/uL 1.09-3.23 = 731-0) MONO x10^3 (test code 0.64 10*3/uL 0.36-1.02 = 742-7) EOS x10^3 (test code = 0.46 10*3/uL 0.06-0.53 711-2) BASO x10^3 (test code 0.06 10*3/uL 0.01-0.09 = 704-7) Lab Interpretation Abnormal (test code = 97656-6) [facility] FallsLAB ONLY COVID [id number] 18:43:00COVID DMT InterpretationInterpretation/Recommendations: Molecular NAAT Test Results [...] a nasopharyngeal sample, there is approximately a ocp-em-piscp chance that the patient was infected and [...] based upon aggregate data pooled from the [facility] medical record including both current and prior COVID-19 related testing results for the following tests offered at our institution:A. Tests for the Identification of SARS-CoV-2 RNA:SARS-CoV-2 PCR assays including [place] Aptima, [place] Fusion, Barrett RealTime, and PolySuite Xpert Xpress. SARS-CoV-2 Rapid ID NOW by the ID NOW assay. ? B. Tests for the Identification of SARS-CoV-2 Antibodies: Chemiluminescent immunoassays including Access SARS-CoV-2 IgM (DXI 600), LinkCloudS Xmnh-IRJZ-DdK-2 IgG (Vitros 5600 and Vitros 3600), and Barrett SARS-CoV-2 IgG (J[employer] INSTALLER I System). These interpretation comments assume that only the above testing was utilized and that the approved acceptable specimen type(s) were used for a given test. These interpretations are autopopulated into [employer] based on computerized algorithms matching an interpretation code number to the patient's set of test results. While a clinical pathologist evaluates the combinations for clinical accuracy, clinical correlation is recommended as it may not take into account very remote prior testing. Furthermore, it does not consider testing a patient may have had outside of the [facility] system. Additionally, it should be noted that the computerized algorithm treats the results for PCR testing and Rapid ID NOW testing (also PCR) synonymously, and thus, refers to both testing methodologies as PCR tests. Given that the sensitivity of [facility]'s Rapid ID NOW testingplatform is analogous to [...] panel may be beneficial in this setting. [facility] LABORATORY SERVICESCOVID PhehovaXMPE-DsN-6 Rapid ID NOW (no units) ? ? Date ? Value ? 08/21/2020 ? Not Detected ? [facility] SERVICESUn[facility]2020-08-23 18:25:00 Test Item Value Reference Range Interpretation Comments POCT GLU (test code = 3552503495) 297 mg/dL 70-110 H Lab Interpretation (test code = Abnormal 07547-5) [facility] GLUCOSE (AUTOMATED)2020-08-23 14:25:00 Test Item Value Reference Range Interpretation Comments POCT GLU (test code = 0209821747) 181 mg/dL 70-110 H Lab Interpretation (test code = Abnormal 19571-9) [facility] FallsBasi Metabolic Panel (NA, K, CL, CO2, GLUCOSE, BUN, CREATININE, CA)2020-08-23 11:45:00 Test Item Value Reference Range Interpretation Comments NA (test code = 132 mmol/L 135-145 L 5399600198) K (test code = 4.0 mmol/L 3.5-5 2113653389) CL (test code = 96 mmol/L 98-108 L 9402315507) CO2 TOTAL (test code = 33 mmol/L 23-31 H 0059452285) AGAP (test code = 2-16 5297560045) BUN (test code = 9 mg/dL 7-23 2780823037) GLUCOSE (test code = 176 mg/dL 70-110 H 3046003508) CREATININE (test code = 0.66 mg/dL 0.6-1.25 5164986874) CALCIUM (test code = 8.5 mg/dL 8.6-10.6 L 0629168859) eGFR Calculation mL/min/1.73m2 (Non-) (test code = 0385402895) eGFR Calculation mL/min/1.73m2 () (test code = 1222790633) JAMES (test code = JAMES) Association of [...] tests). Lab Interpretation Abnormal (test code = 26776-4) [facility] FallsMagnesium [id number] 11:45:00 Test Item Value Reference Range Interpretation Comments MAGNESIUM (test code = 4834664149) 2.0 mg/dL 1.7-2.4 Lab Interpretation (test code = Normal 12096-3) [facility] FallsCB with Dactnksgvust1947-34-27 11:38:00 Test Item Value Reference Range Interpretation [...] RDW-SD (test code = 41.8 fL 38.5-51.6 80861-9) RDW-CV (test code = 14.3 % 12.1-15.4 788-0) PLT (test code = See_Comment H [Automated 777-3) message] The sy stem which generated this result transmitted reference range : 150 - 328 10*3/ ?L. The reference r torito was not used to interpret this result as normal/abnormal . MPV (test code = 8.0 fL 9.8-13 L 41256-8) NRBC/100 WBC (test See_Comment [Automat ed code = 4567327591) message] The system which generated this result transmitted reference range : 0.0 - 10.0 /100 WBCs. The refer ence range was not u sed to interpret th is result as normal/abnormal . NRBC x10^3 (test code <0.01 See_Comment [Auto mated = 2846396680) message] The s ystem which generated this result transmitted reference range : 10*3/?L. The reference range was not used to interpret this result as normal/abnormal . GRAN MAT (NEUT) % 61.5 % (test code = 770-8) IMM GRAN % (test code 2.00 % = 5713018215) LYMPH % (test code = 25.5 % 736-9) MONO % (test code = 6.3 % 5905-5) EOS % (test code = 3.7 % 713-8) BASO % (test code = 1.0 % 706-2) GRAN MAT x10^3(ANC) 5.29 10*3/uL 1.99-6.95 (test code = 3874817012) IMM GRAN x10^3 (test 0.17 10*3/uL 0-0.06 H code = 8196781935) LYMPH x10^3 (test code 2.19 10*3/uL 1.09-3.23 = 731-0) MONO x10^3 (test code 0.54 10*3/uL 0.36-1.02 = 742-7) EOS x10^3 (test code = 0.32 10*3/uL 0.06-0.53 711-2) BASO x10^3 (test code 0.09 10*3/uL 0.01-0.09 = 704-7) Lab Interpretation Abnormal (test code = 42608-5) [facility] GLUCOSE (AUTOMATED)2020-08-23 10:22:00 Test Item Value Reference Range Interpretation Comments POCT GLU (test code = 9273376526) 164 mg/dL 70-110 H Lab Interpretation (test code = Abnormal 40661-2) [facility] GLUCOSE (AUTOMATED)2020-08-23 05:56:00 Test Item Value Reference Range Interpretation Comments POCT GLU (test code = 6887943602) 242 mg/dL 70-110 H Lab Interpretation (test code = Abnormal 83461-4) [facility] GLUCOSE (AUTOMATED)2020-08-23 03:02:00 Test Item Value Reference Range Interpretation Comments POCT GLU (test code = 2328872123) 210 mg/dL 70-110 H Lab Interpretation (test code = Abnormal 31833-8) [facility] GLUCOSE (AUTOMATED)2020-08-22 23:40:00 Test Item Value Reference Range Interpretation Comments POCT GLU (test code = 4773220791) 267 mg/dL 70-110 H Lab Interpretation (test code = Abnormal 38119-1) [facility] GLUCOSE (AUTOMATED)2020-08-22 19:08:00 Test Item Value Reference Range Interpretation Comments POCT GLU (test code = 2901458637) 191 mg/dL 70-110 H Lab Interpretation (test code = Abnormal 58553-0) [facility] GLUCOSE (AUTOMATED)2020-08-22 13:50:00 Test Item Value Reference Range Interpretation Comments POCT GLU (test code = 3135830545) 174 mg/dL 70-110 H Lab Interpretation (test code = Abnormal 31999-5) [facility] FallsURINE [id number] 12:59:00 Test Item Value Reference Range Interpretation Comments URINE CULTURE (test No aerobic growth (< code = 630-4) 1000 CFU/mL) [facility] with Ktzxqbddzfvs8558-28-44 11:28:00 Test Item Value Reference Range Interpretation [...] RDW-SD (test code = 42.5 fL 38.5-51.6 51183-8) RDW-CV (test code = 14.5 % 12.1-15.4 788-0) PLT (test code = See_Comment H [Automated 777-3) message] The sy stem which generated this result transmitted reference range : 150 - 328 10*3/ ?L. The reference r torito was not used to interpret this result as normal/abnormal . MPV (test code = 8.0 fL 9.8-13 L 63783-2) NRBC/100 WBC (test See_Comment [Automat ed code = 7299625350) message] The system which generated this result transmitted reference range : 0.0 - 10.0 /100 WBCs. The refer ence range was not u sed to interpret th is result as normal/abnormal . NRBC x10^3 (test code <0.01 See_Comment [Auto mated = 7160212219) message] The s ystem which generated this result transmitted reference range : 10*3/?L. The reference range was not used to interpret this result as normal/abnormal . GRAN MAT (NEUT) % 69.1 % (test code = 770-8) IMM GRAN % (test code 2.20 % = 1043593750) LYMPH % (test code = 20.9 % 736-9) MONO % (test code = 5.8 % 5905-5) EOS % (test code = 1.0 % 713-8) BASO % (test code = 1.0 % 706-2) GRAN MAT x10^3(ANC) 6.51 10*3/uL 1.99-6.95 (test code = 0033356207) IMM GRAN x10^3 (test 0.21 10*3/uL 0-0.06 H code = 8333014039) LYMPH x10^3 (test code 1.97 10*3/uL 1.09-3.23 = 731-0) MONO x10^3 (test code 0.55 10*3/uL 0.36-1.02 = 742-7) EOS x10^3 (test code = 0.09 10*3/uL 0.06-0.53 711-2) BASO x10^3 (test code 0.09 10*3/uL 0.01-0.09 = 704-7) BASO STIPPLING (test Present A code = 703-9) BANDS (test code = Increased A 6278802083) TOXIC CHANGES (test Present A code = 803-7) Lab Interpretation Abnormal (test code = 88903-2) [facility] Metabolic Panel (NA, K, CL, CO2, GLUCOSE, BUN, CREATININE, CA)2020-08-22 11:12:00 Test Item Value Reference Range Interpretation Comments NA (test code = 135 mmol/L 135-145 3112627061) K (test code = 3.6 mmol/L 3.5-5 1036919070) CL (test code = 99 mmol/L 98-108 7125484962) CO2 TOTAL (test code = 31 mmol/L 23-31 1180425968) AGAP (test code = 2-16 3953305923) BUN (test code = 9 mg/dL 7-23 4816800486) GLUCOSE (test code = 198 mg/dL 70-110 H 2805652520) CREATININE (test code = 0.72 mg/dL 0.6-1.25 9010120298) CALCIUM (test code = 8.3 mg/dL 8.6-10.6 L 0854189051) eGFR Calculation mL/min/1.73m2 (Non-) (test code = 1957315602) eGFR Calculation mL/min/1.73m2 () (test code = 8271080799) JAMES (test code = JAMES) Association of [...] tests). Lab Interpretation Abnormal (test code = 37674-9) [facility] FallsMagnesium [id number] 11:12:00 Test Item Value Reference Range Interpretation Comments MAGNESIUM (test code = 9713288254) 2.0 mg/dL 1.7-2.4 Lab Interpretation (test code = Normal 41342-6) [facility] FallsLipid Panel (Total Cholesterol, Triglycerides, HDL) - [id number] 11:12:00 Test Item Value Reference Range Interpretation Comments CHOL (test code = 155 mg/dL 120-200 0746339860) HDL (test code = 42 mg/dL >40 2512274684) HDLC RATIO (test code = See_Comment [Au tomated message] 5802556667) The system [employer] generated this result transmit ronan reference range : <=5.0. The refe rence range was not u sed to interpret th is result as normal/abnormal . TRIG (test code = 186 mg/dL 30-170 H 1244700984) LDL CHOL (test code = 76 mg/dL See_Comment [Auto mated message] 52492-7) The system [employer] generated this result transmit ronan reference range : <=160. The refe rence range was not u sed to interpret th is result as normal/abnormal . VLDL (test code = 37 mg/dL 5-60 6360715813) Lab Interpretation (test Abnormal code = 32631-2) [facility] FallsHEPATIC FUNCTION PANEL (28214) (ALB,T.PRO,BILI T,BU/BC,ALT,AST,ALK PHOS)2020-08-22 11:12:00 Test Item Value Reference Range Interpretation Comments TOTAL BILI (test code = 5163274172) 0.6 mg/dL 0.1-1.1 BILI UNCON (test code = 0289324479) 0.2 mg/dL 0.1-1.1 BILI CONJ (test code = 9872957999) 0.0 mg/dL 0-0.3 T PROTEIN (test code = 0176334903) 6.0 g/dL 6.3-8.2 L ALBUMIN (test code = 4452663283) 2.8 g/dL 3.5-5 L ALK PHOS (test code = 5463848715) 222 U/L 34-122 H ALTv (test code = 1742-6) 27 U/L 5-50 AST(SGOT) (test code = 1546403920) 30 U/L 13-40 Lab Interpretation (test code = Abnormal 45852-7) [facility] GLUCOSE (AUTOMATED)2020-08-22 10:11:00 Test Item Value Reference Range Interpretation Comments POCT GLU (test code = 9934059657) 196 mg/dL 70-110 H Lab Interpretation (test code = Abnormal 45654-4) [facility] GLUCOSE (AUTOMATED)2020-08-22 07:15:00 Test Item Value Reference Range Interpretation Comments POCT GLU (test code = 2674229391) 183 mg/dL 70-110 H Lab Interpretation (test code = Abnormal 00605-9) [facility] GLUCOSE (AUTOMATED)2020-08-22 02:30:00 Test Item Value Reference Range Interpretation Comments POCT GLU (test code = 3769580052) 295 mg/dL 70-110 H Lab Interpretation (test code = Abnormal 50040-6) [facility] GLUCOSE (AUTOMATED)2020-08-21 23:46:00 Test Item Value Reference Range Interpretation Comments POCT GLU (test code = 1261758548) 258 mg/dL 70-110 H Lab Interpretation (test code = Abnormal 25063-4) [facility] FallsC-REACTIVE [id number] 18:50:00 Test Item Value Reference Range Interpretation Comments CRP (test code = 4584311996) 15.5 mg/dL <0.8 H Lab Interpretation (test code = Abnormal 91131-8) [facility] FallsPOCT GLUCOSE (AUTOMATED)2020-08-21 18:21:00 Test Item Value Reference Range Interpretation Comments POCT GLU (test code = 4282097127) 297 mg/dL 70-110 H Lab Interpretation (test code = Abnormal 43623-8) [facility] FallsETHANOL2020-11-09 16:24:00 Test Item Value Reference Range Interpretation Comments ALCOHOL (test code = <10 mg/dL 2817140684) JAMES (test code = Toxic Greater than or JAMES) equal to 80 mg/dL. NOTE: Whole blood values are approximately 10% to 15% lower than serum and plasma. [facility] FallsGALV/CLC ONLY - URINE DRUG (IMMUNOASSAY) - 4 ER [id number] 15:36:00 Test Item Value Reference Range Interpretation Comments AMPHET (test code = Negative Negative 0155382582) Cocaine Metabolite (test Negative Negative code = 3109513893) OPIATES (test code = Presumptive Positive Negative A 3854586363) THC (test code = Negative Negative 2310994285) JAMES (test code = JAMES) Urine Drug Cutoff Ranges Amphetamine: ? 1,000 ng/mLCocaine: ? 150 ng/mLOpiates: ? 300 ng/mLCannabinoids: ?50 ng/mL The results are to be used only for medical (i.e., treatment) purposes. Unconfirmed screening results must not be used for non-medical purposes (e.g., employment testing, legal testing). Lab Interpretation (test Abnormal code = 65569-5) [facility] - SYPHILIS [id number]/[id number] 15:04:00 Test Item Value Reference Range Interpretation Comments Syphilis IgG/IgM (test Non-reactive Non-reactive code = 03942-0) JAMES (test code = JAMES) Non-reactive - No serologic evidence of T. pallidum infection. Cannot exclude incubating or early syphilis. Submit a second specimen in 2-4 weeks if syphilis is clinically suspected. Equivocal - Further testing to follow. Reactive - Further testing to follow. Lab Interpretation (test Normal code = 29491-1) [facility] FallsUrinalysis2020-11-09 14:52:00 Test Item Value Reference Range Interpretation Comments APPEARANCE (test code = Clear Clear 3603895538) COLOR (test code = Yellow Yellow 8450528879) PH (test code = 4.8-8.0 9250796901) SP GRAVITY (test code = 1.003-1.030 4175725272) GLU U QUAL (test code = 500 mg/dL Normal A 3346121064) BLOOD (test code = Negative Negative 1186747284) KETONES (test code = 20 mg/dL Negative A 2122499520) PROTEIN (test code = Negative Negative 2887-8) UROBILIN (test code = Normal Normal 5406974510) BILIRUBIN (test code = Negative Negative 7125848811) NITRITE (test code = Negative Negative 2864563968) LEUK RYAN (test code = Negative Negative 3065077612) RBC/HPF (test code = <1 See_Comment [Autom ated message] 0504617757) The system [employer] generated this result transmit ronan reference range : 0 - 3 HPF. The refe rence range was not u sed to interpret th is result as normal/abnormal . WBC/HPF (test code = See_Comment [Autom ated message] 5211515119) The system [employer] generated this result transmit ronan reference range : 0 - 5 HPF. The refe rence range was not u sed to interpret th is result as normal/abnormal . BACTERIA (test code = Negative Negative 9853091585) MUCOUS (test code = Slight Negative LPF A 9050983162) Lab Interpretation (test Abnormal code = 71649-0) [facility] FallsACTIVATED PARTIAL THRMPLAS [id number] 13:45:00 Test Item Value Reference Range Interpretation Comments APTT Patient (test code = See_Comment [ Automated message] 3173-2) The system [employer] generated this result transmitted ref erence range: 26 - 36 Seconds. The re ference range was not u sed to interpret this result as normal/abnor mal. Lab Interpretation (test Normal code = 18290-1) [facility] FallsPOCT GLUCOSE (AUTOMATED)2020-08-21 13:45:00 Test Item Value Reference Range Interpretation Comments POCT GLU (test code = 8101274403) 246 mg/dL 70-110 H Lab Interpretation (test code = Abnormal 25669-3) [facility] FallsHIV 1/2 AG-AB WITH [id number] 12:32:00 Test Item Value Reference Range Interpretation Comments HIV Negative Negative Semi-quantitative (test code = 11530-3) JAMES (test code = Non-reactive for HIV-1 JAMES) antigen and HIV-1/HIV-2 antibodies. ?No laboratory evidence of HIV infection. ?Repeat in 2-4 weeks if acute HIV infection is suspected. [facility] WITH [id number] 12:18:00 Test Item Value Reference Range Interpretation [...] RDW-SD (test code = 44.4 fL 38.5-51.6 69717-0) RDW-CV (test code = 14.5 % 12.1-15.4 788-0) PLT (test code = See_Comment H [Automated 777-3) message] The sy stem which generated this result transmitted reference range : 150 - 328 10*3/ ?L. The reference r torito was not used to interpret this result as normal/abnormal . MPV (test code = 8.5 fL 9.8-13 L 42085-7) NRBC/100 WBC (test See_Comment [Automat ed code = 1714789538) message] The system which generated this result transmitted reference range : 0.0 - 10.0 /100 WBCs. The refer ence range was not u sed to interpret th is result as normal/abnormal . NRBC x10^3 (test code <0.01 See_Comment [Auto mated = 4575821459) message] The s ystem which generated this result transmitted reference range : 10*3/?L. The reference range was not used to interpret this result as normal/abnormal . GRAN MAT (NEUT) % 90.4 % (test code = 770-8) IMM GRAN % (test code 1.30 % = 2748516851) LYMPH % (test code = 7.1 % 736-9) MONO % (test code = 0.5 % 5905-5) EOS % (test code = 0.1 % 713-8) BASO % (test code = 0.6 % 706-2) GRAN MAT x10^3(ANC) 7.74 10*3/uL 1.99-6.95 H (test code = 4347787585) IMM GRAN x10^3 (test 0.11 10*3/uL 0-0.06 H code = 0714409932) LYMPH x10^3 (test code 0.61 10*3/uL 1.09-3.23 L = 731-0) MONO x10^3 (test code 0.04 10*3/uL 0.36-1.02 L = 742-7) EOS x10^3 (test code = <0.03 0.06-0.53 L 711-2) BASO x10^3 (test code 0.05 10*3/uL 0.01-0.09 = 704-7) POLYCHROMASIA (test 2+ See_Comment [Automa ronan code = 86398-1) message] The system which generated this result transmitted reference range : 2+. The referen ce range was not u sed to interpret th is result as normal/abnormal . BANDS (test code = Increased A 7894636268) Lab Interpretation Abnormal (test code = 05931-7) [facility] FallsPROCALCITONIN2020-11-09 11:48:00 Test Item Value Reference Range Interpretation Comments Procalcitonin (test 0.36 ng/mL <0.07 H code = 0777822566) JAMES (test code = JAMES) INTERPRETATION OF [...] lung abscess/empyema. For further information please refer to:[email or web address] Lab Interpretation Abnormal (test code = 28821-2) [facility] FallsLASCATE [id number] 10:53:00 Test Item Value Reference Range Interpretation Comments LDH (test code = 7589049500) 351 U/L 300-600 Lab Interpretation (test code = Normal 71633-7) [facility] FallsSEDIMENTATION [id number] 10:07:00 Test Item Value Reference Range Interpretation Comments ESR (test code = See_Comment H [Automated message] 6660877137) The system [employer] generated this result transmitted ref erence range: 0 - 10 m m/HR. The reference r torito was not used to interpret this result as normal/abnor mal. Lab Interpretation (test Abnormal code = 45002-7) [facility] FallsPOSC GLUCOSE (AUTOMATED)2020-08-21 09:45:00 Test Item Value Reference Range Interpretation Comments POCT GLU (test code = 0208003517) 287 mg/dL 70-110 H Lab Interpretation (test code = Abnormal 32011-5) [facility] FallsGlycosylated Hemoglobin (A1C)2020-08-21 09:29:00 Test Item Value Reference Range Interpretation Comments HGB A1C (test code = 4548-4) 9.8 % 4-6 H Lab Interpretation (test code = Abnormal 03209-3) [facility] FallsCOVID-19 (ID NOW RAPID TESTING)2020-08-21 09:13:00 Test Item Value Reference Range Interpretation Comments SARS-CoV-2 Rapid ID NOW Not Detected Not Detected (test code = 33449-4) JAMES (test code = JAMES) ID NOW COVID-19 Assay is an isothermal nucleic acid amplification test intended for the qualitative detection of nucleic acid from SARS-CoV-2 viral RNA in nasopharyngeal (MAINTENANCE TECH) specimens. It is used under Emergency Use [...] indicated. Lab Interpretation Normal (test code = 06182-2) [facility] [facility] FallsProthrombin Time / [id number] 08:59:00 Test Item Value Reference Range Interpretation Comments PROTIME PATIENT (test See_Comment H [Auto mated message] code = 5964-2) The system [employer] generated this result transmitted ref erence range: 10.1 - 1 2.6 Seconds. The reference range was not used to int erpret this result as normal/abnormal . INR (test code = 6301-6) Nor mal INR <1.1; Warfarin Therap eutic range 2.0 to 3. 0 or 2.5 to 3.5, dep ending upon the indica tions. Lab Interpretation (test Abnormal code = 22526-3) [facility]2020-[facility]-09 08:59:00 Test Item Value Reference Range Interpretation Comments APTT Patient (test code = See_Comment [ Automated message] 3173-2) The system [employer] generated this result transmitted ref erence range: 26 - 36 Seconds. The re ference range was not u sed to interpret this result as normal/abnor mal. Lab Interpretation (test Normal code = 80973-4) [facility]OL[facility] PANEL (NA, K, CL, CO2, GLUCOSE, BUN, CREATININE, CA)2020-08-21 08:52:00 Test Item Value Reference Range Interpretation Comments NA (test code = 136 mmol/L 135-145 8093394467) K (test code = 4.3 mmol/L 3.5-5 2540888354) CL (test code = 104 mmol/L 98-108 1520557721) CO2 TOTAL (test code = 24 mmol/L 23-31 7210359118) AGAP (test code = 2-16 5218701800) BUN (test code = 8 mg/dL 7-23 1108469236) GLUCOSE (test code = 308 mg/dL 70-110 H 6843782126) CREATININE (test code = 0.72 mg/dL 0.6-1.25 0901730092) CALCIUM (test code = 7.8 mg/dL 8.6-10.6 L 9116048340) eGFR Calculation mL/min/1.73m2 (Non-) (test code = 3534342249) eGFR Calculation mL/min/1.73m2 () (test code = 2959331145) JAMES (test code = JAMES) Association of [...] tests). Lab Interpretation Abnormal (test code = 69925-7) [facility] FallsHEPATIC FUNCTION PANEL (05000) (ALB,T.PRO,BILI T,BU/BC,ALT,AST,ALK PHOS)2020-08-21 08:52:00 Test Item Value Reference Range Interpretation Comments TOTAL BILI (test code = 0211400813) 0.8 mg/dL 0.1-1.1 BILI UNCON (test code = 6605085990) 0.3 mg/dL 0.1-1.1 BILI CONJ (test code = 2194132976) 0.0 mg/dL 0-0.3 T PROTEIN (test code = 1447176956) 5.7 g/dL 6.3-8.2 L ALBUMIN (test code = 1611069349) 2.7 g/dL 3.5-5 L ALK PHOS (test code = 9576146472) 245 U/L 34-122 H ALTv (test code = 1742-6) 37 U/L 5-50 AST(SGOT) (test code = 0681348946) 43 U/L 13-40 H Lab Interpretation (test code = Abnormal 46756-3) [facility] [place] [facility]
== END 2022-04-30 09:09 | disposition home or self-care (01) ==
LOC: ER 17:04 → ERHOLD 19:04
PROVIDERS: ADMIT Internal Medicine; ATTEND Internal Medicine
DX: R11.2 Nausea with vomiting, unspecified (principal); E11.9 Type 2 diabetes mellitus without complications; G89.4 Chronic pain syndrome; I48.91 Unspecified atrial fibrillation; I10 Essential (primary) hypertension; F41.9 Anxiety disorder, unspecified; F11.90 Opioid use, unspecified, uncomplicated; F13.90 Sedative, hypnotic, or anxiolytic use, unspecified, uncomplicated; R00.0 Tachycardia, unspecified; K59.00 Constipation, unspecified; J44.9 Chronic obstructive pulmonary disease, unspecified; D64.9 Anemia, unspecified; M19.90 Unspecified osteoarthritis, unspecified site; I89.0 Lymphedema, not elsewhere classified; Z74.01 Bed confinement status; Z79.899 Other long term (current) drug therapy; Z88.8 Allergy status to other drugs, medicaments and biological substances; Z88.6 Allergy status to analgesic agent; Z88.5 Allergy status to narcotic agent; Z88.3 Allergy status to other anti-infective agents; Z90.49 Acquired absence of other specified parts of digestive tract; Z82.0 Family history of epilepsy and other diseases of the nervous system
CPT/HCPCS: 93005; 85025 ×2; 80048 ×2; 36415 ×2; 86900; 83735; 86850; 84132; 85610; 86901; 80076; 85018 ×3; 85014 ×3; 84484; 83690; 83880 ×2; 74176; 71045; 99285; U0003; J2550; C9113 ×5; J1170; J7050 ×3; J7030; J2405 ×3; J3480 ×4; G0378 ×4

== ENCOUNTER 2022-06-06 04:01 | Emergency (ER) | payer OTHER ==
--- OUTSIDE RECORDS SUMMARY | 2022-06-06 04:11 | XMS REPORT | Continuity of Care Document ---
:1950 Author Organization [facility] t Address [address] [place] [address] Care Team Providers Name Role Phone JESSE SHETTY Primary Care Physician Unavailable KELLY WASHINGTON Attending Clinician Unavailable SWEETIE STOUT Attending Clinician Unavailable Sweetie Stout MD Attending Clinician ADRIANA HAINES Attending Clinician Unavailable Yolis VILLAREAL, Calvin Shaikh Attending Clinician Ruchi Peters RN Attending Clinician Paco Lacey DO Attending Clinician Rene Harrison MD Attending Clinician Alvarez Kauffman MD Attending Clinician PACO LACEY Attending Clinician Unavailable Doctor Unassigned, [place] Attending Clinician Unavailable Wilder VILLAREAL, Angi K.H. Attending Clinician Jl Mccabe MD Attending Clinician Kelly [place] MD Attending Clinician [phone] Mukul Gaines MD Attending Clinician MUKUL GALLARDO Admitting Clinician Unavailable Rene Harrison MD Admitting Clinician Nicci VILLAREAL Mukul Anand Admitting Clinician Payers Payer Name Policy Type Policy Number Effective Date Expiration Date Tony doe MEDICARE PART A [id number] 2007 \\T\\ B 00:00:00 [employer] INDEMNITY [id number] 2016 00:00:00 MEDICARE PART A [id number] 2014 \\T\\ B - MEDICARE 00:00:00 INDEMNITY/TRADITIO [id number] NAL CHOICE - [employer] 00:00:00 Problems Condition Condition Condition Status Onset Resolution Last Treating Co mments Source Name Details Category Date Date Treatment Clinician Date Elevated Elevated Disease Active Unive rs LFTs LFTs 2-05 ity of 00:00: [place] 00 Medical Branch Abnormal Abnormal Disease Active Unive rs CXR CXR 2-05 ity of 00:00: Medical Branch Elevated Elevated Disease Active 2020-0 Unive rs LFTs LFTs 2-05 ity of 00:00: [place] 00 Medical Branch Cellulitis Cellulitis Disease Active 2020-0 U nivers 2-04 ity of 00:00: 00 Medical Branch Rash Rash Disease Active 2019- Univers 1-09 ity of 00:00: 00 Medical Branch Allergies, Adverse Reactions, Alerts Allergy Allergy Status Severity Reaction(s) Onset Inactive Treating Comm ents Source Name Type Date Date Clinician [place] Propensi Active Rash 2019- Univers ty to 1-10 ity of adverse 00:00: [place] reaction 00 Medical [facility] PEACH DRUG Active Rash 2019- Univers INGREDI [...] of adverse 00:00: [place] reaction 00 Medical [facility] Glimepir Propensi Active Hives 2011-0 Univer s efren ty to 3-16 ity of adverse 00:00: [place] reaction 00 Medical [facility] Metformi Propensi Active Itching Unive rs n ty to 3-16 ity of adverse 00:00: [place] reaction 00 Medical s Branch MEPERIDI DRUG Active Anaphylaxis Uni vers NE INGREDI -16 ity of 00:00: [place] 00 Medical Branch GLIMEPIR DRUG Active Hives Univers EFREN INGREDI -16 ity of 00:00: [place] 00 Medical Branch METFORMI DRUG Active ITCHING Univers N INGREDI -16 ity of 00:00: [place] 00 Medical Branch Social History Social Habit Start Date Stop Date Quantity Comments Source Exposure to Not sure [place] of SARS-CoV-2 [place] [facility] (event) Branch History of Chews Tobacco University of tobacco use [place] [facility] History SDOH 2020-11-17 2020-11-17 5 University o f Financial 00:00:00 00:00:00 [place] [facility] History SDOH Food 2020-11-17 2020-11-17 1 Univers ity of Worry 00:00:00 00:00:00 [place] [facility] History SDNC Food 2020-11-17 2020-11-17 1 Univers ity of Scarcity 00:00:00 00:00:00 [place] [facility] History SDOH 2020-11-17 2020-11-17 1 University o f Transport Med 00:00:00 00:00:00 [place] Medic al Branch History SDOH 2020-11-17 2020-11-17 1 University o f Transport Non-Med 00:00:00 00:00:00 [facility] edical Branch Education 2020-11-16 2020-11-16 21 [place] of 00:00:00 00:00:00 [facility] Alcohol intake 2020-11-16 2020-11-16 Ex-drinker [facility] 00:00:00 00:00:00 (finding) [facility] Tobacco use and 2020-08-21 2020-08-21 Former user Universi ty of exposure 00:00:00 00:00:00 [facility] Tobacco Comment 2020-08-21 2020-08-21 quit 10 years Univer sity of 00:00:00 00:00:00 ago, started in [place] Med ical 2nd year of Branch college (~40 years) Alcohol Comment 2020-08-21 2020-08-21 Used to have 2-3 Uni versity of 00:00:00 00:00:00 six-packs of [place] Medica l beer daily x 20 Branch years, quit 2005 History [facility] 2020-08-21 2020-08-21 99 University o f Alcohol Frequency 00:00:00 00:00:00 [place] M edical Branch History [facility] 2020-08-21 2020-08-21 99 University o f Alcohol Std 00:00:00 00:00:00 [place] Medical Drinks Branch History [facility] 2020-08-21 2020-08-21 99 [place] o f Alcohol Binge 00:00:00 00:00:00 [facility] al Branch Sex Assigned [birth year] Universit y of 00:00:00 00:00:00 [facility] Smoking Status Start Date Stop Date Source Never smoker [facility] Medications Ordered Filled Start Stop Current [...] by ity of tablet 22:47: mouth at [place] 18 bedtime. Medical Branch HYDROmorpho Yes 4mg [...] by ity of tablet 22:47: mouth at [place] 18 bedtime. Medical Branch HYDROmorpho 2020-0 Yes [...] 0845, Until Discontinu ed, Routine amLODIPine Yes [id number] 10mg Take 1 Univers 10 mg 3-07 tablet by ity of tablet 00:00: mouth [place] 00 daily. Medical Branch clotrimazol 0 Yes [id number] Apply to Univers e 1 % 3-07 face/ears, ity of topical 00:00: armpits, [place] cream 00 pannus and Medical back/any Branch other rash twice a day fluocinonid 2020-0 Yes [id number] Apply to Univers e 0.05 % 3-07 scalp ity of solution 00:00: twice a day Medical Branch triamcinolo Yes [id number] Apply to Univers ne 3-07 back, ity of acetonide 00:00: armpits [place] 0.1 % cream 00 and other Med ical affected Branch areas twice daily, please mix with clotrimazo le hydrOXYzine Yes [id number] 10mg Take 1 Univers 10 mg 3-07 tablet by ity of tablet 00:00: mouth 2 (two) Medical times Branch daily. amLODIPine 0 Yes [id number] 10mg Take 1 Univers 10 mg 3-07 tablet by ity of tablet 00:00: mouth [place] 00 daily. Medical Branch clotrimazol Yes [id number] Apply to Univers e 1 % 3-07 face/ears, ity of topical 00:00: armpits, [place] cream 00 pannus and Medical back/any Branch other rash twice a day fluocinonid 0 Yes [id number] Apply to Univers e 0.05 % 3-07 scalp ity of solution 00:00: twice a day Medical Branch triamcinolo Yes [id number] Apply to Univers ne 3-07 back, ity of acetonide 00:00: armpits [place] 0.1 % cream 00 and other Med ical affected Branch areas twice daily, please mix with clotrimazo le hydrOXYzine Yes [id number] 10mg Take 1 Univers 10 mg 3-07 tablet by ity of tablet 00:00: mouth 2 (two) Medical times Branch daily. amLODIPine 2020-0 Yes [id number] 10mg Take 1 Univers 10 mg 3-07 tablet by ity of tablet 00:00: mouth [place] 00 daily. Medical Branch clotrimazol 2020-0 Yes [id number] Apply to Univers e 1 % 3-07 face/ears, ity of topical 00:00: armpits, [place] cream 00 pannus and Medical back/any Branch other rash twice a day fluocinonid 2020-0 Yes [id number] Apply to Univers e 0.05 % 3-07 scalp ity of solution 00:00: twice a day Medical Branch triamcinolo 2021-0 Yes [id number] Apply to Univers ne 3-07 back, ity of acetonide 00:00: armpits [place] 0.1 % cream 00 and other Med ical affected Branch areas twice daily, please mix with clotrimazo le hydrOXYzine Yes [id number] 10mg Take 1 Univers 10 mg 3-07 tablet by ity of tablet 00:00: mouth 2 [place] 00 (two) Medical times Branch daily. amLODIPine Yes [id number] 10mg Take 1 Univers 10 mg 3-07 tablet by ity of tablet 00:00: mouth [place] 00 daily. Medical Branch clotrimazol Yes [id number] Apply to Univers e 1 % 3-07 face/ears, ity of topical 00:00: armpits, [place] cream 00 pannus and Medical back/any Branch other rash twice a day fluocinonid Yes [id number] Apply to Univers e 0.05 % 3-07 scalp ity of solution 00:00: twice a [place] 00 day Medical Branch triamcinolo Yes [id number] Apply to Univers ne 3-07 back, ity of acetonide 00:00: armpits [place] 0.1 % cream 00 and other Med ical affected Branch areas twice daily, please mix with clotrimazo le hydrOXYzine Yes [id number] 10mg Take 1 Univers 10 mg 3-07 tablet by ity of tablet 00:00: mouth 2 [place] 00 (two) Medical times Branch daily. cephALEXin 2020-2020- No [id number] 500mg Take 1 Univers 500 mg 3-04 14-11 capsule by ity of capsule 00:00: 05:59 mouth [place] 00 :00 every 6 Medical (six) Branch hours for 3 days. cephALEXin 2020-2020- No [id number] 500mg Take 1 Univers 500 mg 3-04 14-11 capsule by ity of capsule 00:00: 05:59 mouth [place] 00 :00 every 6 Medical (six) Branch hours for 3 days. hydrOXYzine 2020-2020- No [id number] 10mg Take 1 Univers 10 mg 3-07 03-07 tablet by ity of tablet 00:00: 00:00 mouth 2 [place] 00 :00 (two) Medical times Branch daily. morpHINE Yes 4mg 4 mg, Slow Uni vers injection 4 06 IV Push, ity of mg 22:40: Q6HPRN, [place] 02 Starting Medical 12/16/20 Branch at 1640, [...] Medical 12/16/20 at Branch 0515, Routine lactated No 1000mL at 125 Univ ers ringers IV 12-16 03-06 mL/hr, ity of infusion 01:00: 00:16 1,000 mL, [place] 1,000 mL 00 :00 IV Medical Infusion, Branch ONCE, 1 dose, 12/15/20 at 1900, Routine iohexol No 100mL 100 mL, Unive rs (OMNIPAQUE 12-15-05 Intravenou it y of 350 22:24: 22:24 [...] days NaCl 0.9% No 500mL at 999 [facility] ers (NS) bolus 12-15 mL/hr, 500 it y of infusion 16:00: 15:26 mL, IV [place] 500 mL 00 :00 Piggyback, [facility] ONCE, 1 Branch dose, Fri12/15/20 at 1000, STAT HYDROmorpho Yes 4mg 4 mg, [facility] 12[facility] Oral, BID, ity of (DILAUDID) 15:30: First dose [place] tablet 4 mg 00 (after Medica l last Branch modificati on) on Fri12/15/20 at 0930, Until Discontinu ed, Routine amLODIPine 2020- No [id number] 10mg Take 1 Univers 10 mg 12-15 tablet by ity of tablet 00:00: 00:00 mouth [place] 00 :00 daily. Medical Branch HYDROmorpho No 1mg 1 mg, [facility] ers ne 12-14 Oral, ity of (DILAUDID) 17:35: 15:18 Q6HPRN, [place] tablet 1 mg 30 :06 Starting Medi [facility] 12/14/20 Branch at 1135, Until Fri12/15/20 at 0918, Routine, Pain (scale 7-10) hydrOXYzine Yes 10mg 10 mg, [facility] ers (ATARAX) 12-14 Oral, BID, ity o f tablet 10 17:30: First dose [place] mg 00 on [facility] 12/14/20 at Branch 1130, Until Discontinu ed, Routine lisinopriL Yes 5mg 5 mg, Univer s (PRINIVIL,Z 12-14 Oral, ity of ESTRIL) 17:30: DAILY, [place] tablet 5 mg 00 First dose Me dical on [facility] 12/14/20 at 1130, Until Discontinu ed, Routine triamcinolo 2020- No [id number] Apply to [facility] 12-14 back, ity of acetonide 00:00: 00:00 armpits [place] 0.1 % cream 00 :00 and other Med ical affected Branch areas twice daily, please mix with clotrimazo le clotrimazol 2020- No [id number] Apply to Univers e 1 % 12-14 face/ears, ity of topical 00:00: 00:00 armpits, [place] cream 00 :00 pannus and Medical back/any Branch other rash twice a day fluocinonid 2020- No [id number] Apply to Univers e 0.05 % 12-14 scalp ity of solution 00:00: 00:00 twice a [place] 00 :00 day Medical Branch hydrOXYzine 2020- No [id number] 10mg Take 1 Univers 10 mg 12-14 [...] IV Push, ity of (PF)) 10:07: Q6HPRN, [place] injection 4 28 Starting Medi jose c mg Fri12/13/20 Branch at 0407, Until Discontinu ed, Routine, Nausea and Vomiting (N/V) ondansetron 2020- No 4mg 4 mg, Slow Univers (ZOFRAN 12-13- IV Push, ity of (PF)) 04:55: 05:44 ONCE, 1 [place] injection 4 00 :00 dose, [facility] ical mg 12/12/20 at Branch 2300, Routine traMADoL 2020- No 50mg 50 mg, Univer s (ULTRAM) 12-1303 Oral, ity of tablet 50 03:45: 03:34 ONCE, 1 [place] mg 00 :00 dose, [facility] 12/12/20 at Branch 2145, Routine insulin Yes 15U 15 Units, Unive rs glargine 12-12 Subcutaneo ity o f (LANTUS 15:00: us, DAILY, [place] U-100) 00 First dose Medical injection on [facility] 15 Units 12/12/20 at 0900, Until Discontinu ed hydrOXYzine 2020- No 10mg 10 mg, Uni vers (ATARAX) 12-12 0302 Oral, ity of tablet 10 08:15: 07:33 ONCE, 1 [place] mg 00 :00 dose, [facility] 12/12/20 at Branch 0215, Routine mirtazapine Yes 7.5mg 7.5 mg, Un toi (REMERON) 3 Oral, QHS, ity of tablet 7.5 03:00: First dose [place] mg 00 on [facility] 12/11/20 at Branch 2100, Until Discontinu ed, Routine venlafaxine 2021-0 Yes 300mg 300 mg, Un toi XR (EFFEXOR 3-02 Oral, QHS, it y of XR) 24 hr 03:00: First dose [place] capsule 300 00 on Fri Medica l mg 12/11/20 at Branch 2100, Until Discontinu ed, Routine fluocinonid 0 Yes Topical, Un toi e (LIDEX) 3-02 BID, First ity of 0.05 % 02:00: dose on [place] solution 00 Fri12/11/20 Medic al at 2000, Branch Until Discontinu ed, Routine acetaminoph 2020- No 1{tbl} 1 tablet, Univers en-codeine 12-11 03-05 Oral, ity of (TYLENOL 23:23: 13:49 Q6HPRN, [place] #3) 300-30 43 :08 Starting Medic al mg tablet 1 Fri12/11/20 Br anch tablet at 1723, Until Fri12/15/20 at 0749, Routine, Pain (scale 4-6) enoxaparin 0 Yes 40mg 40 mg, Unive rs (LOVENOX) [...] at 1315, Until Discontinu ed, Routine triamcinolo 2020-0 Yes Topical, Un toi ne 12-11 BID, First ity of acetonide 19:00: dose [place] (TRIDERM) 00 (after Medical 0.1 % cream last Branch modificati on) on Fri12/11/20 at 1300, Until Discontinu ed, Routine ceFAZolin 2020- No 1000mg 1,000 mg, Univers (ANCEF) 12-11 IV ity of 1,000 mg in 19:00: 17:[facility] [place] NaCl 0.9% 00 :26 Q8H ABX, Medica l (NS) 50 mL First dose [facility] MINI-BAG on Fri12/11/20 at 1300, Until Discontinu ed, 50 mL
R jose armando for Anti-Infec tive: Documented Infection< br>Documen ronan Infection Site: Skin / Soft Tissue
Duration of Therapy: 7 days Sliding Yes Subcutaneo Univ ers Scale - us, TID ity of Insulin - 18:00: MEALS+HS, [place] Lispro 00 First dose Medical (HumaLOG) + on Fri Branch Fsbg 12/11/20 at Testing 1200, Until Discontinu ed, Routine insulin Yes 5U 5 Units, [facility] lispro 12-11 Subcutaneo ity of (human) 18:00: , TID [place] (HumaLOG 00 MEALS, Medical U-100) First dose Branch injection 5 on Fri Units 12/11/20 at 1200, Until Discontinu ed Polyethylen Yes 17g 17 g, [facility] rs e Glycol 12-11 Oral, ity of 3350 17:47: [id number], [place] (MIRALAX) 05 Starting Medica l powder 17 g 12/11/20 Br anch at 1147, Until Discontinu ed, Routine, Constipati on acetaminoph Yes 650mg 650 mg, Un toi en 12-11 Oral, ity of (TYLENOL) 16:51: Q6HPRN, [place] tablet 650 28 Starting Medic al mg Fri12/11/20 Branch at 1051, Until Discontinu ed, Routine, Pain (scale 1-3) FENTanyl PF 2020- No 75ug 75 mcg, Un toi (SUBLIMAZE 12-11 Slow IV ity o f (PF)) 15:00: 13:53 Push, [place] injection 00 :00 ONCE, 1 Medical 75 mcg dose, Mon Branch 12/11/20 at 0900, Routine vancomycin 2020- No 1000mg 1,000 mg, Univers (VANCOCIN) 12-11 IV ity of injection 14:00: 17:48 Piggyback, [place] 1,000 mg 00 :24 Q12H, Medical First dose Branch on Fri12/11/20 at 0800, Until Discontinu ed, KAHLIL
Re ason for Anti-Infec tive: Empiric Therapy for Suspected Infection< br>Empiric Therapy Site: Skin / Soft tissue
Duration of therapy: 72 hours NaCl 0.9% 202- No 30mL/kg at 999 Un toi (NS) [...]
Duration of therapy: 72 hours sennosides- Yes [id number] 1{tbl} Take 1 [facility] docusate 2- tablet by ity of sodium 00:00: mouth 2 [place] 8.6-50 mg 00 (two) Medical per tablet times Branch daily. hydrocortis Yes [id number] Apply to [facility] one 2.5 % 11-21 affected ity of cream 00:00: area(s) 2 [place] 00 (two) Medical times Branch daily. blood sugar Yes [id number] Use to Univers diagnostic 11-21 check ity of (FREESTYLE 00:00: blood [place] LITE 00 glucose Medical STRIPS) 4-5 times Branch strip daily. Polyethylen Yes [id number] 17g Take 1 Univers e Glycol 11-21 Packet by ity of 3350 17 00:00: mouth [place] gram powder 00 every 24 Medi jose c (twenty-fo Branch ur) hours as needed for Constipati on. sennosides- 2020- Yes [id number] 1{tbl} Take 1 Univers docusate 2-09 tablet by ity of sodium 00:00: mouth 2 [place] 8.6-50 mg 00 (two) Medical per tablet times Branch daily. hydrocortis 2020- Yes [id number] Apply to Univers one 2.5 % 2-09 affected ity of cream 00:00: area(s) 2 [place] 00 (two) Medical times Branch daily. blood sugar 2020- Yes [id number] Use to [facility] diagnostic 11-21 check ity of (FREESTYLE 00:00: blood [place] LITE 00 glucose Medical STRIPS) 4-5 times Branch strip daily. Polyethylen 2020- Yes [id number] 17g Take 1 Univers e Glycol 2-09 Packet by ity of 3350 17 00:00: mouth [place] gram powder 00 every 24 Medi jose c (twenty-fo Branch ur) hours as needed for Constipati on. sennosides- Yes [id number] 1{tbl} Take 1 Univers docusate 2-09 tablet by ity of sodium 00:00: mouth 2 [place] 8.6-50 mg 00 (two) Medical per tablet times Branch daily. hydrocortis 2020- Yes [id number] Apply to Univers one 2.5 % 2-09 affected ity of cream 00:00: area(s) 2 [place] 00 (two) Medical times Branch daily. blood sugar 2020- Yes [id number] Use to [facility] diagnostic 11-21 check ity of (FREESTYLE 00:00: blood [place] LITE 00 glucose Medical STRIPS) 4-5 times Branch strip daily. Polyethylen 2020-0 Yes [id number] 17g Take 1 Univers e Glycol 2-09 Packet by ity of 3350 17 00:00: mouth [place] gram powder 00 every 24 Medi jose c (twenty-fo Branch ur) hours as needed for Constipati on. sennosides- 2020- Yes [id number] 1{tbl} Take 1 Univers docusate 2-09 tablet by ity of sodium 00:00: mouth 2 [place] 8.6-50 mg 00 (two) Medical per tablet times Branch daily. hydrocortis Yes [id number] Apply to [facility] one 2.5 % 11-21 affected ity of cream 00:00: area(s) 2 [place] 00 (two) Medical times Branch daily. blood sugar Yes [id number] Use to [facility] diagnostic 11-21 check ity of (FREESTYLE 00:00: blood [place] LITE 00 glucose Medical STRIPS) 4-5 times Branch strip daily. Polyethylen Yes [id number] 17g Take 1 Univers e Glycol 11-21 Packet by ity of 3350 17 00:00: mouth [place] gram powder 00 every 24 Medi jose c (twenty-fo Branch ur) hours as needed for Constipati on. Insulin 2020- No [id number] 15U inject 15 Univers Glargine 11-21 Units ity of (LANTUS 00:00: 05:59 under the [place] SOLOSTAR 00 :00 skin every Medic al U-100 morning Branch INSULIN) for 30 100 unit/mL days. (3 mL) injection venlafaxine 2020- No [id number] 150mg Take 1 Univers XR 150 mg 11-21 capsule by ity of 24 hr 00:00: 05:59 mouth 3 [place] capsule 00 :00 (three) Medical times Branch daily for 30 days. Insulin 2020- No [id number] 15U inject 15 Univers Glargine 11-21 Units ity of (LANTUS 00:00: 05:59 under the [place] SOLOSTAR 00 :00 skin every Medic al U-100 morning Branch INSULIN) for 30 100 unit/mL days. (3 mL) injection venlafaxine 2020- No [id number] 150mg Take 1 Univers XR 150 mg 11-21 capsule by ity of 24 hr 00:00: 05:59 mouth 3 [place] capsule 00 :00 (three) Medical times Branch daily for 30 days. triamcinolo 2020- No [id number] Apply to [facility] ne 11-21-04 area(s) 2 ity of acetonide 00:00: 00:00 (two) [place] 0.1 % cream 00 :00 times Medical daily. Branch cephALEXin 2020- No [id number] 1000mg Take 2 Univers 500 mg 11-21 capsules ity of capsule 00:00: 00:00 by mouth 3 [place] 00 :00 (three) Medical times Branch daily. doxycycline 2020- No [id number] 100mg Take 1 Univers hyclate 100 11-21 capsule by i ty of mg capsule 00:00: 00:00 mouth [place] 00 :00 every 12 Medical (twelve) Branch hours. lactobacill 2020- No [id number] 1{tbl} Take 1 Univers us 11-21 tablet by ity of acidophilus 00:00: 00:00 mouth 2 [place] 25 million 00 :00 (two) Medical cell -100 times Branch mg captab daily. bisacodyL 2020- No [id number] 10mg Insert 1 Univers 10 mg 11-21 Suppositor ity of suppository 00:00: 00:00 y into [place] 00 :00 rectum at Medical bedtime as Branch needed for Constipati on. ALPRAZolam 2020- No [id number] .25mg Take 1 Univers (XANAX) 11-21 tablet by ity of 0.25 mg 00:00: 00:00 mouth 2 [place] tablet 00 :00 (two) Medical times Branch daily. hydrOXYzine 2020- No [id number] 20mg Take 2 Univers 10 mg 11-21 tablets by ity of tablet 00:00: 00:00 mouth [place] 00 :00 every 8 Medical (eight) Branch hours as needed for Itching or Anxiety. HYDROmorpho 2019-10 Yes 4mg Take 4 mg U nivers ne 4 mg 1-12 by mouth 2 ity of tablet 01:13: (two) [place] 36 times Medical daily. Branch HYDROMORPHO 2019-10 Yes Inject as U nivers NE HCL 1-12 directed. ity of (DILAUDID [...] daily. Branch HYDROMORPHO 2019-10 Yes Inject as U nivers NE HCL 1-12 directed. ity of (DILAUDID [...] daily. Branch HYDROMORPHO 2019-10 Yes Inject as U nivers NE HCL 1-12 directed. ity of (DILAUDID [...] 3 ity of 6 mg 01:13: (three) [place] capsule 36 times Medical daily. Branch Insulin 2019-10 Yes 15U inject 15 Unive rs Glargine 1-12 Units ity of (LANTUS 01:13: under the [place] SOLOSTAR) 36 skin. Medical 100 unit/mL Branch (3 mL) InPn INSULIN 2019-10 Yes 5U inject 5 Univer s ASPART 1-12 Units ity of (NOVOLOG 01:13: under the [facility] FLEXPEN [place]) 36 skin. Medical Branch [...] daily. Branch HYDROMORPHO 2019-10 Yes Inject as U nivers NE HCL 1-12 directed. ity of (DILAUDID [...] Units ity of (LANTUS 01:13: under the [place] SOLOSTAR) 36 skin. Medical 100 unit/mL Branch [...] daily. Branch HYDROMORPHO 2019-10 Yes Inject as U nivers NE HCL 1-12 directed. ity of (DILAUDID [...] Units ity of (LANTUS 01:13: under the [place] SOLOSTAR) 36 skin. Medical 100 unit/mL Branch [...] daily. Branch HYDROMORPHO 2019-10 Yes Inject as U nivers NE HCL 1-12 directed. ity of (DILAUDID [...] Units ity of (LANTUS 01:13: under the [place] SOLOSTAR) 36 skin. Medical 100 unit/mL Branch (3 mL) InPn INSULIN 2019-10 Yes 5U inject 5 Univer s ASPART 1-12 Units ity of (NOVOLOG 01:13: under the [facility] FLEXPEN [place]) 36 skin. Medical Branch [...] daily. Branch HYDROMORPHO 2019-10 Yes Inject as U nivers NE HCL 1-12 directed. ity of (DILAUDID [...] Units ity of (LANTUS 01:13: under the [place] SOLOSTAR) 36 skin. Medical 100 unit/mL Branch (3 mL) InPn INSULIN 2019-10 Yes 5U inject 5 Univer s ASPART 1-12 Units ity of (NOVOLOG 01:13: under the [facility] s FLEXPEN [place]) 36 skin. Medical Branch ALPRAZolam 2019-10 Yes .25mg Take 0.25 U nivers (XANAX) 1-12 mg by ity of 0.25 mg 01:13: mouth 2 [place] tablet 36 (two) Medical times Branch daily. HYDROXYZINE 2019-10 2020- No 25mg Take 25 mg Univers PAMOATE 1-11 11-11 by mouth ity of ORAL 20:04: 00:00 daily. [place] 34 :00 Medical Branch hydrocortis 2019-10 Yes [id number] Apply to Univers one 2.5 % 1-11 affected ity of cream 00:00: area(s) 2 [place] 00 (two) Medical times Branch daily. hydrOXYzine 2019- Yes [id number] 20mg Take 2 Univers 10 mg 1-11 tablets by ity of tablet 00:00: mouth [place] 00 every 8 Medical (eight) Branch hours as needed for Itching or Anxiety. Polyethylen 2019- Yes [id number] 17g Take 1 Univers e Glycol 1-11 Packet by ity of 3350 17 00:00: mouth [place] gram powder 00 every 24 Medi jose c (twenty-fo Branch ur) hours as needed for Constipati on. hydrocortis 2019-10 Yes [id number] Apply to Univers one 2.5 % 1-11 affected ity of cream 00:00: area(s) 2 [place] 00 (two) Medical times Branch daily. hydrOXYzine 2019- Yes [id number] 20mg Take 2 Univers 10 mg 1-11 tablets by ity of tablet 00:00: mouth [place] 00 every 8 Medical (eight) Branch hours as needed for Itching or Anxiety. Polyethylen 2019- Yes [id number] 17g Take 1 Univers e Glycol 1-11 Packet by ity of 3350 17 00:00: mouth [place] gram powder 00 every 24 Medi jose c (twenty-fo Branch ur) hours as needed for Constipati on. hydrocortis 2019- Yes [id number] Apply to Univers one 2.5 % 1-11 affected ity of cream 00:00: area(s) 2 [place] (two) Medical times Branch daily. hydrOXYzine 2019- Yes [id number] 20mg Take 2 Univers 10 mg 1-11 tablets by ity of tablet 00:00: mouth [place] 00 every 8 Medical (eight) Branch hours as needed for Itching or Anxiety. Polyethylen 2019- Yes [id number] 17g Take 1 Univers e Glycol 1-11 Packet by ity of 3350 17 00:00: mouth [place] gram powder 00 every 24 Medi jose c (twenty-fo Branch ur) hours as needed for Constipati on. hydrocortis 2019-10 Yes [id number] Apply to Univers one 2.5 % 1-11 affected ity of cream 00:00: area(s) 2 [place] (two) Medical times Branch daily. hydrOXYzine 2019-10 Yes [id number] 20mg Take 2 Univers 10 mg 1-11 tablets by ity of tablet 00:00: mouth [place] 00 every 8 Medical (eight) Branch hours as needed for Itching or Anxiety. Polyethylen 2019-10 Yes [id number] 17g Take 1 Univers e Glycol 1-11 Packet by ity of 3350 17 00:00: mouth [place] gram powder 00 every 24 Medi jose c (twenty-fo Branch ur) hours as needed for Constipati on. hydrocortis 2019-10 Yes [id number] Apply to Univers one 2.5 % 1-11 affected ity of cream 00:00: area(s) 2 [place] (two) Medical times Branch daily. hydrOXYzine 2019-10 Yes [id number] 20mg Take 2 Univers 10 mg 1-11 tablets by ity of tablet 00:00: mouth [place] 00 every 8 Medical (eight) Branch hours as needed for Itching or Anxiety. Polyethylen 2019- Yes [id number] 17g Take 1 Univers e Glycol 1-11 Packet by ity of 3350 17 00:00: mouth [place] gram powder 00 every 24 Medi jose c (twenty-fo Branch ur) hours as needed for Constipati on. hydrocortis 2019-10 Yes [id number] Apply to Univers one 2.5 % 1-11 affected ity of cream 00:00: area(s) 2 [place] (two) Medical times Branch daily. hydrOXYzine 2019-10 Yes [id number] 20mg Take 2 Univers 10 mg 1-11 tablets by ity of tablet 00:00: mouth [place] 00 every 8 Medical (eight) Branch hours as needed for Itching or Anxiety. Polyethylen 2019- Yes [id number] 17g Take 1 Univers e Glycol 1-11 Packet by ity of 3350 17 00:00: mouth [place] gram powder 00 every 24 Medi jose c (twenty-fo Branch ur) hours as needed for Constipati on. hydrocortis 2019- Yes [id number] Apply to Univers one 2.5 % 1-11 affected ity of cream 00:00: area(s) 2 [place] 00 (two) Medical times Branch daily. hydrOXYzine 2019-10 Yes [id number] 20mg Take 2 Univers 10 mg 1-11 tablets by ity of tablet 00:00: mouth [place] 00 every 8 Medical (eight) Branch hours as needed for Itching or Anxiety. Polyethylen 2019-10 Yes [id number] 17g Take 1 Univers e Glycol 1-11 Packet by ity of 3350 17 00:00: mouth [place] gram powder 00 every 24 Medi jose c (twenty-fo Branch ur) hours as needed for Constipati on. triamcinolo 2019- 2020- No [id number] Apply to [facility] 10-23 area(s) 2 ity of acetonide 00:00: 05:59 (two) [place] 0.1 % cream 00 :00 times Medical daily for Branch 14 days. triamcinolo 2019- 2020- No [id number] Apply to [facility] 10-23 area(s) 2 ity of acetonide 00:00: 05:59 (two) [place] 0.1 % cream 00 :00 times Medical daily for Branch 14 days. triamcinolo 2019- 2020- No [id number] Apply to [facility] 10-23 area(s) 2 ity of acetonide 00:00: 05:59 (two) [place] 0.1 % cream 00 :00 times Medical daily for Branch 14 days. KCL 2019- 2020- No 40meq 40 mEq, Univers (KLOR-CON - 11-10 Oral, ONCE ity of M20) tablet 16:15: 16:23 NOW, 1 Jeff as 40 mEq 00 :00 dose, [facility] 08/22/20 Branch at 1015, Routine HYDROmorpho 2019-10 Yes 1mg 1 mg, Unive rs ne 1-10 Oral, ity of (DILAUDID) 15:07: Q6HPRN, [place] tablet 1 mg 53 Starting [facility] 08/22/20 at 0907, Until Discontinu ed, Routine, Pain (scale 7-10) hydrocortis 2019-10 Yes Topical Uni vers one 2.5 % 1-10 (Apply To ity o f cream 02:00: Affected [place] 00 Areas), Medical BID, First Branch dose on [facility] 08/21/20 at 2000, Until Discontinu ed, Routine triamcinolo 2019-10 Yes Topical, Un toi ne 1-10 BID, First ity of acetonide 02:00: dose on [place] (TRIDERM) 00 [facility] Medical 0.1 % cream 08/21/20 at Br anch 2000, Until Discontinu ed, Routine hydrOXYzine 2019-10 Yes 20mg 20 mg, Univ ers (ATARAX) 09 Oral, ity of tablet 20 17:39: Q8HPRN, [place] mg 12 Starting Medical [facility] 08/21/20 at 1139, Until Discontinu ed, Routine, Itching, Anxiety sennosides- 2019-10 Yes 1{tbl} 1 tablet, Univers docusate 10-21 Oral, ity of sodium 15:00: DAILY, [place] (SENOKOT-S) 00 First dose Me dical 8.6-50 mg on [facility] per tablet 08/21/20 at 1 tablet 0900, Until Discontinu ed, Routine hydrocortis 2019-10 2020- No Topical Un toi one 1 % 10-21 (Apply To ity of cream 15:00: 22:54 Affected [place] 00 :48 Areas), Medical DAILY, Branch First dose on [facility] 08/21/20 at 0900, Until Discontinu ed, Routine venlafaxine 2019-10 Yes 150mg 150 mg, Un toi XR (EFFEXOR 09 Oral, TID, it y of XR) 24 hr 14:00: First [place] capsule 150 00 on [facility] Medica l mg 08/21/20 at Branch 0800, Until Discontinu ed, Routine heparin 2019-10 Yes 5000U 5,000 Univers (porcine) 1-09 Units, ity of injection 14:00: Subcutaneo [place] 5,000 Units 00 us, Q12H, Med ical First dose Branch on Fri08/21/20 at 0800, Until Discontinu ed, Routine diphenhydrA 2019-10- No 25mg 25 mg, Uni vers MINE 10-21 Oral, ity of (BENADRYL) 12:56: 17:39 Q8HPRN, [place] tablet 25 59 :43 Starting Medica l mg [facility] 08/21/20 at 0656, Until Fri08/21/20 at 1139, Routine, Itching, Mild Rash, Congestion /Allergies , alternate with hydroxyzin e hydrOXYzine 2019-10 No 10mg 10 mg, Uni vers (ATARAX) 10-21 Oral, ity of tablet 10 10:20: 12:57 Q6HPRN, [place] mg 22 :12 Starting Medical [facility] 08/21/20 at 0420, Until Fri08/21/20 at 0657, Routine, Itching, Anxiety Sliding 2019-10 Yes Subcutaneo Univ ers Scale -09 us, Q4H, ity of Insulin - 10:00: First [place] Aspart 00 (after Medical (NOVOLOG) + last Branch Fsbg modificati Testing on) on Fri08/21/20 at 0400, Until Discontinu ed, Routine lidocaine 5 2019-10- No Topical, U nivers % ointment 10-21 ONCE, 1 ity o f 09:30: 09:14 dose, [facility] 00 :00 08/21/20 at [facility] 0330, Branch Routine Polyethylen 2019-10 Yes 17g 17 g, Unive rs e Glycol 10-21 Oral, ity of 3350 08:29: [id number], [place] (MIRALAX) 09 Starting Medica l powder 17 g [facility] 08/21/20 at 0229, Until Discontinu ed, Routine, Constipati on lanolin 2019-10 Yes Topical, Univer s alcohol-mo- 10-21 PRN, ity of w.pet-ceres 08:26: [place] (EUCERIN) 30 [facility] Medical cream 08/21/20 at Branch 0226, Until Discontinu ed, Routine, Dermatitis /Rash ALPRAZolam 2019-10 Yes .25mg 0.25 mg, Un toi (XANAX) 10-21 Oral, ity of tablet 0.25 08:25: BIDPRN, [place] mg 41 Starting Medical Mon Branch 08/21/20 at 0225, Until Discontinu ed, Routine, anxiety traZODONE 2019-10- No 100mg Take 100 Un toi (DESYREL) 10-21 mg by ity of 100 mg 08:22: 00:00 mouth at [place] tablet 59 :00 bedtime. Medical Branch esomeprazol 2019-10- No 40mg Take 40 mg Univers e (NEXIUM) 10-21 by mouth ity of 40 mg 08:22: 00:00 daily with [place] capsule 59 :00 breakfast. Medica l Branch [...] 1-3) sotalol 2019-10 2020- No [facility] (B[facility] 10-21 mouth ity of 240 mg 07:43: 00:00 every 12 [place] tablet 30 :00 (twelve) Medical hours. Branch blood sugar Yes Use to [facility] ers diagnostic 4-25 check ity of (FREESTYLE 00:00: blood [place] LITE 00 glucose Medical STRIPS) 4-5 times Branch strip daily. blood sugar Yes Use to [facility] ers diagnostic 4-25 check ity of (FREESTYLE 00:00: blood [place] LITE 00 glucose Medical STRIPS) 4-5 times Branch strip daily. blood sugar Yes Use to [facility] ers diagnostic 4-25 check ity of (FREESTYLE 00:00: blood [place] LITE 00 glucose Medical STRIPS) 4-5 times Branch strip daily. blood sugar Yes Use to [facility] ers diagnostic 4-25 check ity of (FREESTYLE [...] 13:00:00 148 mm[Hg] Univer sity of pressure [place] Medical Branch Diastolic blood 2021-08-22 13:00:00 84 mm[Hg] Unive rsity of pressure [place] [facility] Heart rate 2021-08-22 13:00:00 103 /min [facility] Respiratory rate 2021-08-22 13:00:00 18 /min Univ ersity of [facility] Branch Oxygen saturation in 2021-08-22 13:00:00 95 /min University of Arterial blood by [facility] Pulse oximetry Branch Body temperature 2021-08-22 12:22:00 36.72 [place] Univ ersity of [facility] Branch Systolic blood 2020-12-17 18:35:00 139 mm[Hg] Univer sity of pressure [place] [facility] Diastolic blood 2020-12-17 18:35:00 87 mm[Hg] Unive rsity of pressure [place] [facility] Heart rate 2020-12-17 18:35:00 110 /min [facility] Body temperature 2020-12-17 18:35:00 37.72 [place] [facility] ersity of [facility] Branch Respiratory rate 2020-12-17 18:35:00 18 /min Univ ersity of [facility] Branch Oxygen saturation in 2020-12-17 18:35:00 93 /min University of Arterial blood by [facility] Pulse oximetry Branch Body height 2020-12-12 08:21:00 180.3 cm Universi ty of [place] [facility] Body weight 2020-12-12 08:21:00 103.42 kg Universi ty of [place] [facility] BMI 2020-12-12 08:21:00 31.80 kg/m2 Universi ty of [place] [facility] Systolic blood 2020-12-17 18:35:00 139 mm[Hg] Univer sity of pressure [place] [facility] Diastolic blood 2020-12-17 18:35:00 87 mm[Hg] Unive rsity of pressure [place] [facility] Heart rate 2020-12-17 18:35:00 110 /min Universi ty of [place] [facility] Body temperature 2020-12-17 18:35:00 37.72 [place] Univ ersity of [place] [facility] Respiratory rate 2020-12-17 18:35:00 18 /min Univ ersity of [place] [facility] Oxygen saturation in 2020-12-17 18:35:00 93 /min University of Arterial blood by [email or web address] jose c Pulse oximetry Branch Body height 2020-12-12 08:21:00 180.3 cm Universi ty of [place] [facility] Body weight 2020-12-12 08:21:00 103.42 kg Universi ty of [place] [facility] BMI 2020-12-12 08:21:00 31.80 kg/m2 Universi ty of [place] [facility] Systolic blood 2020-08-23 19:27:00 140 mm[Hg] Univer sity of pressure [place] [facility] Diastolic blood 2020-08-23 19:27:00 79 mm[Hg] Unive rsity of pressure [place] [facility] Heart rate 2020-08-23 19:27:00 99 /min Universi ty of [place] [facility] Body temperature 2020-08-23 19:27:00 36 [place] Univ ersity of [place] [facility] Respiratory rate 2020-08-23 19:27:00 18 /min Univ ersity of [place] [facility] Oxygen saturation in 2020-08-23 19:27:00 93 /min University of Arterial blood by [email or web address] jose c Pulse oximetry Branch Body weight 2020-08-21 07:20:00 104.962 kg Universi ty of [place] [facility] BMI 2020-08-21 07:20:00 32.27 kg/m2 Universi ty of [place] [facility] Systolic blood 2020-08-23 19:27:00 140 mm[Hg] Univer sity of pressure [place] [facility] Diastolic blood 2020-08-23 19:27:00 79 mm[Hg] [facility] of pressure [facility] Heart rate 2020-08-23 19:27:00 99 /min [facility] Body temperature 2020-08-23 19:27:00 36 [place] [facility] 2020-08-23 19:27:00 18 /min [facility] Oxygen saturation in 2020-08-23 19:27:00 93 /min [facility] Arterial blood by [facility] Pulse oximetry [place] Body weight 2020-08-21 07:20:00 104.962 kg [facility] BMI 2020-08-21 07:20:00 32.27 kg/m2 [facility] Procedures Procedure Date / Time Performing Clinician Source Performed POCT GLUCOSE (AUTOMATED) 2020-12-17 15:42:00 Harrison, Premal G Uni [facility] BASIC METABOLIC PANEL 2020-12-17 10:45:00 Paul Bean [facility] (NA, K, CL, CO2, GLUCOSE, [place] Medica l Branch BUN, CREATININE, CA) CBC WITH DIFF 2020-12-17 10:45:00 Paul Bean [facility] POCT GLUCOSE (AUTOMATED) 2020-12-17 02:36:00 [facility] XR TIBIA FIBULA 2 VW LEFT 2020-12-16 23:38:00 Paul Bean [facility] POCT GLUCOSE (AUTOMATED) 2020-12-16 23:20:00 Harrison, [facility] ([facility]OMATED) 2020-12-16 20:10:00 Harrison, [facility] PO[facility]SE (AUTOMATED) 2020-12-16 14:43:00 Harrison, [facility] BASIC METABOLIC PANEL 2020-12-16 13:51:00 Paul Bean [facility] (NA, K, CL, CO2, GLUCOSE, [place] [facility] BUN, CREATININE, CA) CBC WITH DIFF 2020-12-16 13:51:00 Paul Bean [facility] POCT GLUCOSE (AUTOMATED) 2020-12-16 04:00:00 Harrisno, Premal G Uni versity of [facility] POCT GLUCOSE (AUTOMATED) 2020-12-16 00:14:00 Harrison, Premal G Uni versity of [facility] CT CHEST PULMONARY 2020-12-15 22:29:38 Paul Bean [facility] ANGIOGRAM [facility] POCT GLUCOSE (AUTOMATED) 2020-12-15 19:26:00 Harrison, Premal G Uni versity of [facility] POCT GLUCOSE (AUTOMATED) 2020-12-15 15:13:00 Hunter, [facility] ROUTINE & RHYTHM 2020-12-15 14:25:27 Cailin Romo [facility] STRIP [facility] Branch MAGNESIUM 2020-12-15 12:01:00 Paul Bean Sivakumar [facility] BASIC METABOLIC PANEL 2020-12-15 12:01:00 Paul Bean [facility] (NA, K, CL, CO2, GLUCOSE, [place] [facility] BUN, CREATININE, CA) CBC WITH DIFF 2020-12-15 12:01:00 Paul Bean [facility] POCT GLUCOSE (AUTOMATED) 2020-12-15 03:57:00 Harrison, Premal G Uni versity of [facility] POCT GLUCOSE (AUTOMATED) 2020-12-14 23:31:00 Harrison, Premal G Uni versity of [facility] POCT GLUCOSE (AUTOMATED) 2020-12-14 19:08:00 Harrison, Premal G Uni versity of [facility] POCT GLUCOSE (AUTOMATED) 2020-12-14 15:11:00 Harrison, Premal G Uni versity of [facility] POCT GLUCOSE (AUTOMATED) 2020-12-14 02:36:00 Harirson, Premal G Uni versity of [facility] POCT GLUCOSE (AUTOMATED) 2020-12-13 23:32:00 Harrison, Premal G Uni versity of [facility] POCT GLUCOSE (AUTOMATED) 2020-12-13 18:08:00 Harrison, Premal G Uni versity of [facility] BASIC METABOLIC PANEL 2020-12-13 15:39:00 Paul Bean [facility] (NA, K, CL, CO2, GLUCOSE, [place] [facility] BUN, CREATININE, CA) CBC WITH DIFF 2020-12-13 15:39:00 Paul Bean [facility] POCT GLUCOSE (AUTOMATED) 2020-12-13 14:06:00 Harrison, Premal G Uni versity of [facility] POCT GLUCOSE (AUTOMATED) 2020-12-13 03:07:00 Harrison, Premal G Uni versity of [facility] POCT GLUCOSE (AUTOMATED) 2020-12-12 23:52:00 Harrison, Premal G Uni versity of [facility] POCT GLUCOSE (AUTOMATED) 2020-12-12 20:28:00 Harrison, Premal G Uni versity of [facility] POCT GLUCOSE (AUTOMATED) 2020-12-12 19:14:00 Harrison, Premal G Uni versity of [facility] POCT GLUCOSE (AUTOMATED) 2020-12-12 14:33:00 Harrison, Premal G Uni versity of [facility] MAGNESIUM 2020-12-12 08:58:00 Paul Bean [facility] BASIC METABOLIC PANEL 2020-12-12 08:58:00 Paul Bean [facility] (NA, K, CL, CO2, GLUCOSE, [place] [facility] BUN, CREATININE, CA) CBC WITH DIFF 2020-12-12 08:58:00 Paul Bean [facility] US ABDOMEN LIMITED 2020-12-12 06:32:26 Paul Bean [facility] POCT GLUCOSE (AUTOMATED) 2020-12-12 03:40:00 Harrison, Premal G Uni versity of [facility] POCT GLUCOSE (AUTOMATED) 2020-12-12 00:06:00 Harrison, Premal G Uni versity [facility] XR HIPS 3 VW LEFT 2020-12-11 20:20:00 Paul Bean [facility] HB ECG ROUTINE & RHYTHM 2020-12-11 20:04:06 Demertius [facility] STRIP [facility] VITAMIN B6, PLASMA 2020-12-11 19:17:00 Vikas [facility] POCT GLUCOSE (AUTOMATED) 2020-12-11 19:06:00 Rene Harrison [facility] CREATINE KINASE 2020-12-11 18:22:00 Parvez Clarisse [facility] VITAMIN B12, LEVEL 2020-12-11 18:22:00 Vikas [facility] FOLATE 2020-12-11 18:22:[address] [facility] THYROID STIMULATING 2020-12-11 18:22:00 [facility] PROCALCITONIN 2020-12-11 18:22:[address] [facility] VITAMIN B1 (THIAMINE), 2020-12-11 18:22:00 Vikas [facility] WHOLE BLOOD [facility] CT HEAD WO CONTRAST 2020-12-11 14:07:35 Sweetie Stout [facility] URINALYSIS 2020-12-11 13:44:00 Singer Paco [facility] URINE CULTURE 2020-12-11 13:44:00 Singer [facility] COVID-19 (ID NOW RAPID 2020-12-11 12:31:00 Paco Lacey [facility] TESTING) [facility] LAB ONLY COVID 2020-12-11 12:31:00 Paco Lacey [facility] XR CHEST 1 VW 2020-12-11 12:07:24 Singer [facility] BLOOD CULTURE SCREEN 2020-12-11 12:02:00 Paco Lacey [facility] MAGNESIUM 2020-12-11 12:02:00 [facility] 2020-12-11 12:02:[address] [facility] COMP. METABOLIC PANEL 2020-12-11 12:02:[address] [facility] ([id number]) Medical Branch CBC WITH DIFF 2020-12-11 12:02:00 Singer [facility] LACTIC ACID WHOLE BLOOD 2020-12-11 12:02:00 Singer Paco [facility] BLOOD CULTURE SCREEN 2020-12-11 11:42:00 Paco Lacey [facility] EMERGENCY SERVICES 2020-12-11 06:01:00 Doctor Unassnadya, [facility] AGREEMENTS AND [place] [facility] AUTHORIZATIONS HOSPITAL ADMISSION 2020-12-11 06:01:00 Doctor Tabitha [facility] - OTHER 2020-11-11 06:01:00 Doctor Tabitha [facility] [place] [facility] - OTHER 2020-10-30 06:01:[address] [facility] EXTERNAL PROVIDER RECORDS 2020-09-01 06:01:00 Doctor Tabitha [facility] POCT GLUCOSE (AUTOMATED) 2020-08-23 18:09:00 Kelly [place] [facility] POCT GLUCOSE (AUTOMATED) 2020-08-23 14:14:00 Kelly [place] [facility] MAGNESIUM 2020-08-23 11:18:00 [place] [facility] BASIC METABOLIC PANEL 2020-08-23 11:18:00 [place] [facility] (NA, K, CL, CO2, GLUCOSE, Medica l Branch BUN, CREATININE, CA) CBC WITH DIFF 2020-08-23 11:18:00 [place] [facility] POCT GLUCOSE (AUTOMATED) 2020-08-23 10:21:00 Kelly [place] [facility] POCT GLUCOSE (AUTOMATED) 2020-08-23 05:55:00 Kelly [place] [facility] POCT GLUCOSE (AUTOMATED) 2020-08-23 03:00:00 Kelly [place] [facility] POCT GLUCOSE (AUTOMATED) 2020-08-22 23:38:00 Stefania Kelly Elias versity [facility] POCT GLUCOSE (AUTOMATED) 2020-08-22 19:04:00 [facility] ([facility]OMATED) 2020-08-22 13:49:00 Bety [place] Elias versity [facility] MAGNESIUM 2020-08-22 10:10:00 [facility] 2020-08-22 10:10:00 Aguila Melchor [facility] ([id number]) (ALB,T.PRO[facility] T,BU/BC,ALT,AST,ALK PHOS) BASIC METABOLIC PANEL 2020-08-22 10:10:00 [place], [facility] (NA, K, CL, CO2, GLUCOSE, Medica l Branch BUN, CREATININE, CA) LIPID PANEL ([id number])(TOTAL 2020-08-22 10:10:00 [place], [facility] TRIGLY[facility]ER[facility], HDL) CBC WITH DIFF 2020-08-22 10:10:00 [facility] POCT GLUCOSE (AUTOMATED) 2020-08-22 10:10:00 Stefania Kelly Elias [facility] POCT GLUCOSE (AUTOMATED) 2020-08-22 07:13:00 Stefania Kelly Elias [facility] POCT GLUCOSE (AUTOMATED) 2020-08-22 02:24:00 Stefaina Kelly Elias [facility] POCT GLUCOSE (AUTOMATED) 2020-08-21 23:40:00 Stefania Kelly Elias versity [facility] POCT GLUCOSE (AUTOMATED) 2020-08-21 18:10:00 Stefania Kelly Elias [facility] POCT GLUCOSE (AUTOMATED) 2020-08-21 13:39:00 Stefania [facility] ETHANOL 2020-08-21 12:35:00 Jos Quiroz [facility] ACTIVATED PARTIAL 2020-08-21 12:35:00 Stefania [facility] GALV ONLY - SYPHILIS 2020-08-21 12:35:00 Stefania [facility] IGG/IGM [facility] LACTATE DEHYDROGENASE 2020-08-21 10:09:00 [place], [facility] GALV/CLC ONLY - URINE 2020-08-21 10:09:[address] [facility] DRUG (IMMUNOASSAY) - 4 ER Medica l Branch PANEL URINALYSIS 2020-08-21 10:09:00 Ramya, [facility] URINE CULTURE 2020-08-21 10:09:00 [place], [facility] PROCALCITONIN 2020-08-21 10:09:00 Ramya, [facility] POCT GLUCOSE (AUTOMATED) 2020-08-21 09:41:00 Stefania [facility] PROTHROMBIN TIME / INR 2020-08-21 08:32:00 Ramya, [facility] ACTIVATED PARTIAL 2020-08-21 08:32:00 Ramya, [facility] C-REACTIVE PROTEIN 2020-08-21 08:31:00 [place], [facility] HEPATIC FUNCTION PANEL 2020-08-21 08:31:00 [place], [facility] ([id number]) (ALB,T.PRO,BILI [facility] T,BU/BC,ALT,AST,ALK PHOS) BASIC METABOLIC PANEL 2020-08-21 08:31:00 [place], [facility] (NA, K, CL, CO2, [facility] BUN, CREATININE, CA) SEDIMENTATION RATE 2020-08-21 08:31:00 [place], [facility] CBC WITH DIFF 2020-08-21 08:31:00 Ramya, [facility] GLYCOSYLATED HEMOGLOBIN 2020-08-21 08:31:00 [place], [facility] (A1C) [facility] HIV 1/2 AG-AB WITH REFLEX 2020-08-21 08:31:00 [place], Sarah [facility] [place] [facility] (ID NOW RAPID 2020-08-21 08:20:00 [facility] Medical Branch LAB ONLY COVID 2020-08-21 08:20:00 Haily Bui [place] [facility] Encounters Start End Encounter Admission Attending Care Care Encounter Source Date/Time Date/Time Type Type Clinicians Facility Department ID 2020-08-21 Inpatient U [facility]IA [facility] [id number] Univers 01:07:00 KELLY cantu [facility] 2021-08-22 2021-08-22 [id number] Univers 06:21:00 08:02:00 SWEETIE cantu [facility] 2021-08-22 2021-08-22 Emergency [facility] [id number] Univers 06:21:00 08:02:00 Sweetie LOTT [id number] i ty of [facility] [id number] [facility] [id number] [facility] 084 Branch 2021-08-09 2021-08-09 Outpatient ZAKI, [facility] [id number] [facility] 10:27:03 10:27:03 ADRIANA lopez of Medicin e 2020-12-28 2020-12-28 Telephone [facility] [id number] 00:00:00 00:00:00 Calvin H PRIMARY [id number] CARE [id number] [facility] [id number] 2020-12-28 2020-12-28 Telephone [facility] [id number] Univers 00:00:00 00:00:00 Calvin H PRIMARY 350.1.13.10 it y of CARE 4.2.7.2.686 [facility] [phone] Id dical [address] 2020-12-19 2020-12-19 Transition Tuan Peters 1.2.840.114 [id number] 00:00:00 00:00:00 of Care Ruchi Braswell 350.1.13.10 [place] 4.2.7.2.686 [id number] 403 2020-12-19 2020-12-19 Transition Tuan Peters 1.2.840.114 [id number] Univers 00:00:00 00:00:00 of Care Ruchi Braswell 350.1.13.10 it y of [place] 4.2.7.2.686 Jennifer pelletier [phone] [facility] [address] 2020-12-11 2020-12-17 [facility] Paco Lacey Ayleen 1.2.840.1 14 [id number] 05:11:00 16:00:00 Encounter Rene Harrison Monique 350.1.13.10 [facility] 4.2.[id number] [facility] 2020-12-11 2020-12-17 [facility] Paco Lacey 1.2.840.1 14 [id number] [facility] 05:11:00 16:00:00 Encounter Rene Harrison Vowinckel 350.1.13.[address] [facility] 4.2.7.2.686 [place] [phone] [place] 306806 [facility] 2020-12-11 2020-12-11 Emergency X [facility] ERT [id number] Univers 05:11:00 05:11:00 PACO [facility] 2020-11-16 2020-11-16 Emergency X [facility] ERT [id number] Univers 09:31:00 09:31:00 PACO cantu [facility] 2020-11-11 2020-11-11 Orders Doctor CUI 1.2.840.114 [id number] 00:00:00 00:00:00 Only UnassignedMONIQUE 350.1.13.10 [place] [facility] 4.2.7.2.686 [id number] 009 2020-11-11 2020-11-11 Orders Doctor CUI 1.2.840.114 [id number] Univers 00:00:00 00:00:00 Only UnassignedMONIQUE 350.1.13.10 ity of [place] [facility] 4.2.7.2.686 Jeff as [phone] [address] 2020-11-07 2020-11-07 [facility] 1.2.350.527 1700 1214 00:00:00 00:00:00 Sendsiobahn Lott 350.1.13.10 [place] 4.2.7.2.686 Professio [phone] [address] 2020-11-07 2020-11-07 [facility] [id number] 1214 Univers 00:00:00 00:00:00 Sendil Danitza Lott 350.1.13.10 ity of [place]2.[place] [phone] [address] 2020-10-30 2020-10-30 Orders Doctor CUI 1.2.840.114 [id number] 00:00:00 00:00:00 Only Unassigned, MONIQUE 350.1.13.10 [place] [facility] 4.2.7.2.686 [id number] [facility] 2020-10-30 2020-10-30 Orders Doctor BASILIA 1.2.840.114 [id number] Univers 00:00:00 00:00:00 Only Unassigned, MONIQUE 350.1.13.10 ity of [place] [facility] 4.2.7.2.686 Jeff as [phone] [address] 2020-09-26 2020-09-26 Telephone STONE Mccabe 1.2.840.114 80 [id number] 00:00:00 00:00:00 [facility] 350.1.13.10 CLINICS 4.2.7.2.686 [id number] 027 2020-09-26 2020-09-26 Telephone STONE Mccabe 1.2.840.114 80 [id number] Univers 00:00:00 00:00:00 [facility] 350.1.13.10 i ty of CLIN[place] [phone] [address] 2020-09-01 2020-09-01 Orders Doctor BASILIA 1.2.840.114 [id number] 00:00:00 00:00:00 Only Unassigned, MONIQUE 350.1.13.10 [place] [facility] 4.2.7.2.686 [id number] 009 2020-09-01 2020-09-01 Orders Doctor BASILIA 1.2.840.114 [id number] Univers 00:00:00 00:00:00 Only Unassigned, MONIQUE 350.1.13.10 ity of [place] [facility] 4.2.7.2.686 Jeff as [id number] [facility] [address] 2020-08-25 2020-08-25 Transition Tuan Peters 1.2.840.114 795 [id number] 00:00:00 00:00:00 of Care Ruchiliban Garciay 350.1.13.10 [place] 4.2.7.2.686 [id number] 403 2020-08-25 2020-08-25 Transition Tuan Peters 1.2.840.114 795 [id number] Univers 00:00:00 00:00:00 of Care Ruchi Garciay 350.1.13.10 it y [place] [id number] [facility] [address] 2020-08-21 2020-08-23 [facility] Ayleen 1.2.840.114 [id number] 01:07:00 18:35:00 Encounter Kelly Amaya 350.1.13.10 [facility] 4.2.7.2.686 [id number] [facility] 2020-08-21 2020-08-23 [facility] Kelly [facility] Ayleen 1. 2.840.114 [id number] [facility] 01:07:00 18:35:00 Encounter Mukul Gallardo ErynKimmy Dorany 350.1.13. 10 ity of [facility] 4.2.7.2.686 [place] [phone] [address] Results Test Description Test Time Test Comments Results Result Comments Source POCT GLUCOSE (AUTOMATED) 2020-12-17 15:43:35 Test Item Value Reference Range Interpretation Comme nts POCT GLU (test code = 4387617786) 129 mg/dL 70-110 H Lab Interpretation (test code = 69620-3) Abnormal [facility] (NA, K, CL, CO2, GLUCOSE, BUN, CREATININE, CA)2020-12-17 11:45:07 Test Item Value Reference Range Interpretation Comments NA (test code = 137 mmol/L 135-145 1321731023) K (test code = 3.5 mmol/L 3.5-5.0 6533991043) CL (test code = 103 mmol/L 98-108 0071997052) CO2 TOTAL (test code = 26 mmol/L 23-31 8052155480) AGAP (test code = 2-16 0314319125) BUN (test code = 11 mg/dL 7-23 8347767548) GLUCOSE (test code = 175 mg/dL 70-110 H 5124633764) CREATININE (test code = 0.62 mg/dL 0.60-1.25 7385981870) CALCIUM (test code = 9.0 mg/dL 8.6-10.6 7358662587) eGFR Calculation mL/min/1.73m2 (Non-) (test code = 0944283868) eGFR Calculation mL/min/1.73m2 () (test code = 5929904085) JAMES (test code = JAMES) Association of [...] tests). Lab Interpretation Abnormal (test code = 54504-9) [facility] WITH [id number] 11:07:27 Test Item Value Reference Range Interpretation [...] RDW-SD (test code = 45.2 fL 38.5-51.6 48125-5) RDW-CV (test code = 16.9 % 12.1-15.4 H 788-0) PLT (test code = See_Comment H [Automated 777-3) message] The sy stem which generated this result transmitted reference range : 150 - 328 10*3/ ?L. The reference r torito was not used to interpret this result as normal/abnormal . MPV (test code = 8.1 fL 9.8-13.0 L 96451-2) NRBC/100 WBC (test See_Comment [Automat ed code = 9311657778) message] The system which generated this result transmitted reference range : 0.0 - 10.0 /100 WBCs. The refer ence range was not u sed to interpret th is result as normal/abnormal . NRBC x10^3 (test code <0.01 See_Comment [Auto mated = 3002964005) message] The s ystem which generated this result transmitted reference range : 10*3/?L. The reference range was not used to interpret this result as normal/abnormal . GRAN MAT (NEUT) % 72.8 % (test code = 770-8) IMM GRAN % (test code 0.60 % = 0342517350) LYMPH % (test code = 18.4 % 736-9) MONO % (test code = 5.7 % 5905-5) EOS % (test code = 1.8 % 713-8) BASO % (test code = 0.7 % 706-2) GRAN MAT x10^3(ANC) 8.23 10*3/uL 1.99-6.95 H (test code = 1403999715) IMM GRAN x10^3 (test 0.07 10*3/uL 0.00-0.06 H code = 2723704578) LYMPH x10^3 (test code 2.08 10*3/uL 1.09-3.23 = 731-0) MONO x10^3 (test code 0.65 10*3/uL 0.36-1.02 = 742-7) EOS x10^3 (test code = 0.20 10*3/uL 0.06-0.53 711-2) BASO x10^3 (test code 0.08 10*3/uL 0.01-0.09 = 704-7) Lab Interpretation Abnormal (test code = 11265-5) [facility]2020-12-17 06:03:38 Test Item Value Reference Range Interpretation Comments POCT GLU (test code = 3103503594) 75 mg/dL 70-110 Lab Interpretation (test code = Normal 22307-8) [facility], [id number] 00:01:00 Test Item Value Reference Range Interpretation Comments VIT B6 (test code = 13.1 nmol/L 20.0-125.0 L INTERPRE TIVE 61517-6) INFORMATION: Vi tamin B6 (Pyridoxal 5-Phosphate) Pyridoxal 5'-phosphate me asured in a specimen collected follo wing an 8-hour or overnight fast accurately clara keene vitamin B6 nutritional sta tus. Non-fasting spe cimen concentration reflects recent vitamin intake. This test was develo ped and its perform ance characteristics determined by [facility]. I t has not been cleare d or approved by the [place] Food and Drug Administration. This test was perfor med in a CLIA certifie d laboratory and is intended for cl inical purposes.Perfor med By: [facility] [place] [address] [id number] Director: Namrata Klein MD Lab Interpretation Abnormal (test code = 29659-3) [facility] TIBIA FIBULA 2 VW [id number] 23:57:09 Tricompartmental knee joint osteoarthrosis.XR TIBIA FIBULA [...] to ankle COMPARISON: NoneFINDINGS:Moderate to severe tricompartmental knee joint osteoarthrosis. Diffusemuscle atrophy and osteopenia. No acute fracture or dislocation.IMPRESSIONTricompartmental knee joint osteoarthrosis.[facility] GLUCOSE (AUTOMATED) 2020-12-16 23:27:00 Test Item Value Reference Range Interpretation Comments POCT GLU (test code = 1556169921) 114 mg/dL 70-110 H Lab Interpretation (test code = Abnormal 91015-3) [facility] GLUCOSE (AUTOMATED)2020-12-16 20:12:00 Test Item Value Reference Range Interpretation Comments POCT GLU (test code = 3816471032) 105 mg/dL 70-110 Lab Interpretation (test code = Normal 62753-7) [facility] GLUCOSE (AUTOMATED)2020-12-16 14:44:00 Test Item Value Reference Range Interpretation Comments POCT GLU (test code = 3383144604) 153 mg/dL 70-110 H Lab Interpretation (test code = Abnormal 03607-7) [facility] (NA, K, CL, CO2, GLUCOSE, BUN, CREATININE, CA)2020-12-16 14:23:00 Test Item Value Reference Range Interpretation Comments NA (test code = 138 mmol/L 135-145 4426154547) K (test code = 3.4 mmol/L 3.5-5.0 L 7171938957) CL (test code = 100 mmol/L 98-108 4170954297) CO2 TOTAL (test code = 31 mmol/L 23-31 8426588937) AGAP (test code = 2-16 1519910973) BUN (test code = 11 mg/dL 7-23 2977373669) GLUCOSE (test code = 162 mg/dL 70-110 H 0565799813) CREATININE (test code = 0.64 mg/dL 0.60-1.25 7157180753) CALCIUM (test code = 8.9 mg/dL 8.6-10.6 4630705464) eGFR Calculation mL/min/1.73m2 (Non-) (test code = 9825158659) eGFR Calculation mL/min/1.73m2 () (test code = 4086923501) JAMES (test code = JAMES) Association of [...] tests). Lab Interpretation Abnormal (test code = 98144-0) [facility] WITH [id number] 14:05:00 Test Item Value Reference Range Interpretation [...] RDW-SD (test code = 45.4 fL 38.5-51.6 08396-0) RDW-CV (test code = 17.0 % 12.1-15.4 H 788-0) PLT (test code = See_Comment H [Automated 777-3) message] The sy stem which generated this result transmitted reference range : 150 - 328 10*3/ ?L. The reference r torito was not used to interpret this result as normal/abnormal . MPV (test code = 8.0 fL 9.8-13.0 L 53097-7) NRBC/100 WBC (test See_Comment [Automat ed code = 0440886349) message] The system which generated this result transmitted reference range : 0.0 - 10.0 /100 WBCs. The refer ence range was not u sed to interpret th is result as normal/abnormal . NRBC x10^3 (test code <0.01 See_Comment [Auto mated = 8139615295) message] The s ystem which generated this result transmitted reference range : 10*3/?L. The reference range was not used to interpret this result as normal/abnormal . GRAN MAT (NEUT) % 70.0 % (test code = 770-8) IMM GRAN % (test code 0.70 % = 0066780615) LYMPH % (test code = 20.5 % 736-9) MONO % (test code = 7.1 % 5905-5) EOS % (test code = 1.0 % 713-8) BASO % (test code = 0.7 % 706-2) GRAN MAT x10^3(ANC) 9.44 10*3/uL 1.99-6.95 H (test code = 5660398284) IMM GRAN x10^3 (test 0.09 10*3/uL 0.00-0.06 H code = 8289681849) LYMPH x10^3 (test code 2.76 10*3/uL 1.09-3.23 = 731-0) MONO x10^3 (test code 0.96 10*3/uL 0.36-1.02 = 742-7) EOS x10^3 (test code = 0.13 10*3/uL 0.06-0.53 711-2) BASO x10^3 (test code 0.10 10*3/uL 0.01-0.09 H = 704-7) Lab Interpretation Abnormal (test code = 93761-7) [facility] - Peripheral # [id number] 13:01:00 Test Item Value Reference Range Interpretation Comments Blood Culture-Aerobic No organisms No growth Previo us (test code = 20653-5) isolated prelim inary verified result was Culture In Progress on 12/11/2020 at 100 1 CSTPrevious preliminary verified result was No growth a t 24 hours on 12/12/2020 at 070 1 CSTPrevious preliminary verified result was No growth a t 48 hours on 12/13/2020 at 070 1 CSTPrevious preliminary verified result was No growth a t 72 hours on 12/14/2020 at 070 1 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 Blood No organisms No growth Previous Culture-Anaerobic isolated preliminar y (test code = 13638-2) verifi ed result was Culture In Progress on 12/11/2020 at 100 1 CSTPrevious preliminary verified result was No growth a t 24 hours on 12/12/2020 at 070 1 CSTPrevious preliminary verified result was No growth a t 48 hours on 12/13/2020 at 070 1 CSTPrevious preliminary verified result was No growth a t 72 hours on 12/14/2020 at 070 1 [employer]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 Lab Interpretation Normal (test code = 81996-5) [facility] Culture - Peripheral # [id number] 13:01:00 Test Item Value Reference Range Interpretation Comments Blood Culture-Aerobic No organisms No growth Previo us (test code = 47716-5) isolated prelim inary verified result was Culture In Progress on 12/11/2020 at 100 1 CSTPrevious preliminary verified result was No growth a t 24 hours on 12/12/2020 at 070 1 CSTPrevious preliminary verified result was No growth a t 48 hours on 12/13/2020 at 070 1 CSTPrevious preliminary verified result was No growth a t 72 hours on 12/14/2020 at 070 1 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 Blood No organisms No growth Previous Culture-Anaerobic isolated preliminar y (test code = 55765-8) verifi ed result was Culture In Progress on 12/11/2020 at 100 1 CSTPrevious preliminary verified result was No growth a t 24 hours on 12/12/2020 at 070 1 CSTPrevious preliminary verified result was No growth a t 48 hours on 12/13/2020 at 070 1 CSTPrevious preliminary verified result was No growth a t 72 hours on 12/14/2020 at 070 1 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 Lab Interpretation Normal (test code = 45180-8) [facility] GLUCOSE (AUTOMATED)2020-12-16 04:01:00 Test Item Value Reference Range Interpretation Comments POCT GLU (test code = 0518251448) 156 mg/dL 70-110 H Lab Interpretation (test code = Abnormal 03057-7) [facility] GLUCOSE (AUTOMATED)2020-12-16 00:24:00 Test Item Value Reference Range Interpretation Comments POCT GLU (test code = 9908560612) 115 mg/dL 70-110 H Lab Interpretation (test code = Abnormal 92562-8) [facility] CHEST PULMONARY [id number] 23:34:55No pulmonary emboli. No interval change in appearance of right hemithorax volume loss, bandshaped scarring with associated bronchiectasis predominantly involvingposterior segment of the right upper lobe and right lower lobe. Left hepatic lobe a trophy, prior cholecystectomy and with a stableappearanceof intra and extrahepatic biliary ductal dilatation. CT SCAN OF THE CHEST WITH CONTRAST 12/15/2020 4:16 PM TECHNIQUE: Multidetector helical CT scan of the chest was performedfollowing the intravenous administration of contrast. Coronal and sagittalreformats as well axial MIPs imaging were acquired. CLINICAL INFORMATION: Sinus tachycardia. PE suspected, intermediate prob,neg D-dimer COMPARISON: Chest CT11/17/2020 FINDINGS: PULMONARY ARTERIES: The enhancement of the [...] lumenor esophagitis.. Heterogeneous thyroid with multiple nodules measuringup to 2.0 cm on theleft. CARDIOVASCULAR: The cardiac size is normal. Mild coronary arterycalcification. No pericardial effusion. The great vessels caliber isnormal. Mild calcified plaque thoracic aorta. UPPER ABDOMEN: Widening of hepatic fissure with a trophy of left hepaticlobe, predominantly segment4. Absent gallbladder. Stable appearance ofintra and extrahepatic biliary ductal dilatation comparedto 08/20/2020. CBDmeasures 1.1 cm. A 3.2 cm exophytic right renal cysts. Atrophic/absence ofpancreatic head and body. BONES/ CHEST WALL: Chronic fracture deformity of right upper ribs.Spondylosis.Bilateral symmetric gynecomastia. [facility], Radiant Results Inft User - 12/15/2020 5:35 PM CSTCT SCAN OF THE CHEST WITH CONTRAST 12/15/2020 4:16 PMTECHNIQUE: Multidetector helical CT scan of the chest was performedfollowing the intravenous administration of contrast. Coronal and sagittalreformats as well axial MIPs imaging were acquired.CLINICAL INFORMATION: Sinus tachycardia. PE suspected, intermediate prob,neg D-dimer COMPARISON: Chest CT 11/17/2020FINDINGS: PULMONARY ARTERIES: [...] consolidation.No pleural effusion. No pneumothorax.LYMPH NODES: No thoracicadenopathy. MEDIASTINUM/ LOWER NECK: No mediastinal mass is [...] Stable appearance ofintra and extrahepatic biliary ductal d ilatation compared to 08/20/2020. CBDmeasures 1.1 cm. A [...] stableappearance of intra and extrahepatic biliary ductal dilatation.[facility] GLUCOSE (AUTOMATED)2020-12-15 19:28:00 Test Item Value Reference Range Interpretation Comments POCT GLU (test code = 1893781071) 140 mg/dL 70-110 H Lab Interpretation (test code = Abnormal 14262-9) [facility]2021-[facility]-05 15:26:00 Test Item Value Reference Range Interpretation Comments MAGNESIUM (test code = 3045874650) 2.2 mg/dL 1.7-2.4 Lab Interpretation (test code = Normal 86471-7) [facility] GLUCOSE (AUTOMATED)2020-12-15 15:15:00 Test Item Value Reference Range Interpretation Comments POCT GLU (test code = 4591184487) 181 mg/dL 70-110 H Lab Interpretation (test code = Abnormal 66953-6) [facility] METABOLIC PANEL (NA, K, CL, CO2, GLUCOSE, BUN, CREATININE, CA)2020-12-15 13:07:00 Test Item Value Reference Range Interpretation Comments NA (test code = 136 mmol/L 135-145 4663876625) K (test code = 3.6 mmol/L 3.5-5.0 0561873333) CL (test code = 96 mmol/L 98-108 L 6288196989) CO2 TOTAL (test code = 29 mmol/L 23-31 6509767219) AGAP (test code = 2-16 8344212310) BUN (test code = 12 mg/dL 7-23 2751277915) GLUCOSE (test code = 183 mg/dL 70-110 H 7804470989) CREATININE (test code = 0.70 mg/dL 0.60-1.25 5150473622) CALCIUM (test code = 9.2 mg/dL 8.6-10.6 3307226596) eGFR Calculation mL/min/1.73m2 (Non-) (test code = 7672194618) eGFR Calculation mL/min/1.73m2 () (test code = 5707259377) JAMES (test code = JAMES) Association of [...] tests). Lab Interpretation Abnormal (test code = 70117-3) [facility] WITH [id number] 12:32:00 Test Item Value Reference Range Interpretation Comments WBC (test code = See_Comment H [Automated 1090-2) message] The system which generated this result [...] RDW-SD (test code = 44.4 fL 38.5-51.6 07830-5) RDW-CV (test code = 17.7 % 12.1-15.4 H 788-0) PLT (test code = See_Comment H [Automated 777-3) message] The system which generated this result transmit ronan reference range : 150 - 328 10*3/ ?L. The reference range was not u sed to interpret th is result as normal/abnormal . MPV (test code = 8.1 fL 9.8-13.0 L 17007-3) NRBC/100 WBC (test See_Comment [Automat ed code = 4157076525) message] The system which generated this result transmit ronan reference range : 0.0 - 10.0 /100 WBCs. The reference range was not used to interpret this result as normal/abnormal . NRBC x10^3 (test code <0.01 See_Comment [Auto mated = 6400266338) message] The system which generated this result transmit ronan reference range : 10*3/?L. The reference range was not used to interpret this result as normal/abnormal . GRAN MAT (NEUT) % 74.5 % (test code = 770-8) IMM GRAN % (test code 0.70 % = 7664657729) LYMPH % (test code = 17.4 % 736-9) MONO % (test code = 6.8 % 5905-5) EOS % (test code = 0.2 % 713-8) BASO % (test code = 0.4 % 706-2) GRAN MAT x10^3(ANC) 11.99 10*3/uL 1.99-6.95 H (test code = 1887665170) IMM GRAN x10^3 (test 0.11 10*3/uL 0.00-0.06 H code = 2527609072) LYMPH x10^3 (test code 2.80 10*3/uL 1.09-3.23 = 731-0) MONO x10^3 (test code 1.10 10*3/uL 0.36-1.02 H = 742-7) EOS x10^3 (test code = 0.03 10*3/uL 0.06-0.53 L 711-2) BASO x10^3 (test code 0.06 10*3/uL 0.01-0.09 = 704-7) Lab Interpretation Abnormal (test code = 09892-1) [facility] GLUCOSE (AUTOMATED)2020-12-15 04:16:00 Test Item Value Reference Range Interpretation Comments POCT GLU (test code = 1049710736) 200 mg/dL 70-110 H Lab Interpretation (test code = Abnormal 98691-8) [facility] (THIAMINE), WHOLE [id number] 00:30:00 Test Item Value Reference Range Interpretation Comments Vitamin B1, Whole 136 nmol/L 70-180 INTERPRETI VE INFORMATION: Blood (test code = Vitamin B 1, Whole Blood 16374-5) This assay júnior ures the concentration o f thiamine diphosphate (TD P), the primary active form of vitamin B1. Nick roximately 90 percent of v itamin B1 present in whol e blood is TDP. Thiamine a nd thiamine monoph osphate, which comprise the remaining 10 pe rcent, are not measured. T his test was developed a nd its performance characteristics determined by [facility]. I t has not been cleared or approved by the [place] Food and Drug Administration. This test was performed i n a CLIA certified labor atory and is intended for clinical purposes.Perfor med By: [facility] [place] [address] [id number] aboratory Director: Namrata Klein MD [facility] GLUCOSE (AUTOMATED)2020-12-14 23:35:00 Test Item Value Reference Range Interpretation Comments POCT GLU (test code = 7335910634) 151 mg/dL 70-110 H Lab Interpretation (test code = Abnormal 76219-0) [facility] GLUCOSE (AUTOMATED)2020-12-14 19:19:00 Test Item Value Reference Range Interpretation Comments POCT GLU (test code = 5461987834) 193 mg/dL 70-110 H Lab Interpretation (test code = Abnormal 88649-5) [facility] GLUCOSE (AUTOMATED)2020-12-14 15:22:00 Test Item Value Reference Range Interpretation Comments POCT GLU (test code = 3643204192) 221 mg/dL 70-110 H Lab Interpretation (test code = Abnormal 31472-4) [facility] GLUCOSE (AUTOMATED)2020-12-14 02:37:00 Test Item Value Reference Range Interpretation Comments POCT GLU (test code = 3527805489) 210 mg/dL 70-110 H Lab Interpretation (test code = Abnormal 54154-8) [facility] GLUCOSE (AUTOMATED)2020-12-13 23:33:00 Test Item Value Reference Range Interpretation Comments POCT GLU (test code = 9894639566) 182 mg/dL 70-110 H Lab Interpretation (test code = Abnormal 30779-6) [facility] GLUCOSE (AUTOMATED)2020-12-13 18:09:00 Test Item Value Reference Range Interpretation Comments POCT GLU (test code = 2282685265) 150 mg/dL 70-110 H Lab Interpretation (test code = Abnormal 41097-3) [facility] METABOLIC PANEL (NA, K, CL, CO2, GLUCOSE, BUN, CREATININE, CA)2020-12-13 16:27:00 Test Item Value Reference Range Interpretation Comments NA (test code = 136 mmol/L 135-145 5471658901) K (test code = 3.7 mmol/L 3.5-5.0 3946124708) CL (test code = 96 mmol/L 98-108 L 2393151006) CO2 TOTAL (test code = 29 mmol/L 23-31 6626152742) AGAP (test code = 2-16 3438070723) BUN (test code = 6 mg/dL 7-23 L 6335511814) GLUCOSE (test code = 212 mg/dL 70-110 H 6892362988) CREATININE (test code = 0.61 mg/dL 0.60-1.25 0803962931) CALCIUM (test code = 9.5 mg/dL 8.6-10.6 9272950896) eGFR Calculation mL/min/1.73m2 (Non-) (test code = 2824683075) eGFR Calculation mL/min/1.73m2 () (test code = 4793130059) JAMES (test code = JAMES) Association of [...] tests). Lab Interpretation Abnormal (test code = 75080-9) [facility] WITH [id number] 16:10:00 Test Item Value Reference Range Interpretation Comments WBC (test code = See_Comment H [Automated 4178-2) message] The sy stem which generated this [...] RDW-SD (test code = 43.3 fL 38.5-51.6 57144-7) RDW-CV (test code = 16.2 % 12.1-15.4 H 788-0) PLT (test code = See_Comment H [Automated 777-3) message] The sy stem which generated this result transmitted reference range : 150 - 328 10*3/ ?L. The reference r torito was not used to interpret this result as normal/abnormal . MPV (test code = 8.2 fL 9.8-13.0 L 19674-5) NRBC/100 WBC (test See_Comment [Automat ed code = 9060595891) message] The system which generated this result transmitted reference range : 0.0 - 10.0 /100 WBCs. The refer ence range was not u sed to interpret th is result as normal/abnormal . NRBC x10^3 (test code <0.01 See_Comment [Auto mated = 6009067908) message] The s ystem which generated this result transmitted reference range : 10*3/?L. The reference range was not used to interpret this result as normal/abnormal . GRAN MAT (NEUT) % 86.2 % (test code = 770-8) IMM GRAN % (test code 0.70 % = 6667813165) LYMPH % (test code = 10.2 % 736-9) MONO % (test code = 2.5 % 5905-5) EOS % (test code = 0.1 % 713-8) BASO % (test code = 0.3 % 706-2) GRAN MAT x10^3(ANC) 9.61 10*3/uL 1.99-6.95 H (test code = 4947924094) IMM GRAN x10^3 (test 0.08 10*3/uL 0.00-0.06 H code = 4308209939) LYMPH x10^3 (test code 1.14 10*3/uL 1.09-3.23 = 731-0) MONO x10^3 (test code 0.28 10*3/uL 0.36-1.02 L = 742-7) EOS x10^3 (test code = <0.03 0.06-0.53 L 711-2) BASO x10^3 (test code 0.03 10*3/uL 0.01-0.09 = 704-7) Lab Interpretation Abnormal (test code = 49432-0) [facility]2020-[facility]-13 14:16:00 Test Item Value Reference Range Interpretation Comments POCT GLU (test code = 6932635288) 236 mg/dL 70-110 H Lab Interpretation (test code = Abnormal 95925-7) [facility] COVID [id number] 04:58:00COVID DMT InterpretationInterpretation/Recommendations: Molecular NAAT Tests for [...] week of symptoms). Tests for IgM and/or IgG Antibodies to the SARS-CoV-2 Virus: If the patient develops COVID-19 illness in the future, testing for IgM and IgG antibodies approximately 3 weeks [...] COVID-19 testing the patient has had at [facility], including molecular NAAT testing (more commonly known as PCR testing and Rapid ID Now testing) and antibody testing. It does not take into account any testingthat a patient has had outside of the [facility] medical record. [facility] LABORATORY SERVICESCOVID PfwbxxiJLDF-EpE-4 Rapid ID NOW (no units) ? ? Date ? Value ? 12/11/2020 ? Not Detected ? ? ? 11/16/2020 ? Not Detected ? ? ? 08/21/2020 ? Not Detected ? [facility]Un[facility] 2020-12-13 03:11:00 Test Item Value Reference Range Interpretation Comments POCT GLU (test code = 1589642035) 171 mg/dL 70-110 H Lab Interpretation (test code = Abnormal 39860-9) [facility] GLUCOSE (AUTOMATED)2020-12-13 00:00:00 Test Item Value Reference Range Interpretation Comments POCT GLU (test code = 1756438519) 118 mg/dL 70-110 H Lab Interpretation (test code = Abnormal 93755-6) [facility] GLUCOSE (AUTOMATED)2020-12-12 20:29:00 Test Item Value Reference Range Interpretation Comments POCT GLU (test code = 2105100338) 173 mg/dL 70-110 H Lab Interpretation (test code = Abnormal 03037-9) [facility] ABDOMEN [id number] 19:56:17 1. ?Hepatic steatosis. However, limited evaluation [...] main portal veinwasevaluated with color Doppler imaging. Stock Mover images were obtainedfor the record. COMPARISON: Ultrasound abdomen 11/17/2028. And CT chest 11/17/2020. FINDINGS: Exam is limited due to patient's body habitus. PANCREAS: The visualized portions of the pancreas is unremarkable. AORTA:No images were obtained. LIVER:Length: The liver is [...] normal where visualized. SPLEEN:No images were obtained. [facility], Radiant Results Inft User - 12/12/2020 1:57 PM CSTEXAM: US ABDOMEN LIMITEDHISTORY: 70 years-old male with RUQ ultrasound to assess for common bileduct dilation .TECHNIQUE: Limited abdominal ultrasound focused on the liver, biliarysystem, pancreas, and spleen was performed. The main portal vein wasevaluated with color Doppler imaging. Stock Mover images wereobtainedfor the record.COMPARISON: Ultrasound abdomen 11/17/2028. And CT chest 11/17/2020.FINDINGS: Examis limited due to patient's body habitus.PANCREAS: The visualized portions of the pancreas is unremar kable.AORTA:No images were obtained. LIVER:Length: The liver is normal in size, and measures 15.6 cmin thecraniocaudal dimension.Parenchyma: Echogenic liver parenchyma. No focal lesion is detected.Portal vein: Hepatopetal flow is present in the main portal vein.MPV diameter: measures 0.6 cm in the APdimension.BILE DUCTS:No intra- or extrahepatic biliary dilatation is visualized.The common bile ductdiameter is normal, and measures 0.5 cm.GALLBLADDER:The gallbladder is nonvisualized. IVC:The IVC appears normal where visualized. SPLEEN:No images were obtained.IMPRESSION1. Hepatic steatosis. However, limited evaluation of the liver on theseimages.2. CBD is normal and measures 0.5 cm.Preliminary Report Dictated by Resident: Mickey Neal MD., have reviewed this study and agree with the abovereport.[facility]2020-12-12 19:24:00 Test Item Value Reference Range Interpretation Comments POCT GLU (test code = 3328838817) 230 mg/dL 70-110 H Lab Interpretation (test code = Abnormal 62055-4) [facility] 1 [id number] 15:16:46 Low lung volumes with mild perihilar [...] abnormalities are detected The cardiomediastinal silhouette is mildlyenlarged. Calcifications of theaortic knob No acute osseous abnormalities. Severe bilateral glenohumeral jointosteoporosis, partially seen. [facility], Radiant Results Inft User - 12/12/2020 9:17 AM CSTEXAM:XR CHEST 1 VW 12/11/2020 5:55 AMHISTORY: 70 years-old Male with sepsis COMPARISON: 11/20/2020TECHNIQUE: AP view of the chest.FINDINGS:Interval removal of the right PICC.Poor inspiratory with decreased lungvolumes and resultant pulmonaryvascular congestion. Mild elevation of [...] by Resident: Gabrielle Miller MD., have reviewed this study and agree with theabove report.[facility]2020-12-12 14:34:00 Test Item Value Reference Range Interpretation Comments POCT GLU (test code = 2802984117) 225 mg/dL 70-110 H Lab Interpretation (test code = Abnormal 16574-9) [facility]wayURINE [id number] 13:28:00 Test Item Value Reference Range Interpretation Comments URINE CULTURE (test < 10,000 CFU/mL mixed code = 630-4) aerobic organisms - suggests endogenous microbial contamination [facility] Metabolic Panel (NA, K, CL, CO2, GLUCOSE, BUN, CREATININE, CA)2020-12-12 10:05:00 Test Item Value Reference Range Interpretation Comments NA (test code = 136 mmol/L 135-145 6537074790) K (test code = 3.5 mmol/L 3.5-5.0 6834047908) CL (test code = 100 mmol/L 98-108 8123027562) CO2 TOTAL (test code = 31 mmol/L 23-31 1580384730) AGAP (test code = 2-16 2108419518) BUN (test code = 7 mg/dL 7-23 0965185763) GLUCOSE (test code = 259 mg/dL 70-110 H 8063582793) CREATININE (test code = 0.63 mg/dL 0.60-1.25 8664696753) CALCIUM (test code = 8.5 mg/dL 8.6-10.6 L 6829426991) eGFR Calculation mL/min/1.73m2 (Non-) (test code = 4669035616) eGFR Calculation mL/min/1.73m2 () (test code = 6698643501) JAMES (test code = JAMES) Association of [...] tests). Lab Interpretation Abnormal (test code = 96041-0) [facility] ParkwayMagnesium [id number] 10:05:00 Test Item Value Reference Range Interpretation Comments MAGNESIUM (test code = 1283452190) 1.9 mg/dL 1.7-2.4 Lab Interpretation (test code = Normal 29232-5) [facility] with [id number] 09:48:00 Test Item Value Reference Range Interpretation Comments WBC (test code = See_Comment [Automated 3960-2) message] The sy stem which generated this result transmitted reference range : 4.20 - 10.70 10*3/?L. The reference range was not used to interpret this result as normal/abnormal . RBC (test code = See_Comment [Automated 732-7) message] The sy stem which generated this [...] RDW-SD (test code = 46.0 fL 38.5-51.6 13756-2) RDW-CV (test code = 16.1 % 12.1-15.4 H 788-0) PLT (test code = See_Comment H [Automated 777-3) message] The sy stem which generated this result transmitted reference range : 150 - 328 10*3/ ?L. The reference r torito was not used to interpret this result as normal/abnormal . MPV (test code = 8.6 fL 9.8-13.0 L 26718-7) NRBC/100 WBC (test See_Comment [Automat ed code = 5330765597) message] The system which generated this result transmitted reference range : 0.0 - 10.0 /100 WBCs. The refer ence range was not u sed to interpret th is result as normal/abnormal . NRBC x10^3 (test code <0.01 See_Comment [Auto mated = 8984047697) message] The s ystem which generated this result transmitted reference range : 10*3/?L. The reference range was not used to interpret this result as normal/abnormal . GRAN MAT (NEUT) % 70.2 % (test code = 770-8) IMM GRAN % (test code 0.30 % = 0549715792) LYMPH % (test code = 18.8 % 736-9) MONO % (test code = 5.0 % 5905-5) EOS % (test code = 5.2 % 713-8) BASO % (test code = 0.5 % 706-2) GRAN MAT x10^3(ANC) 6.05 10*3/uL 1.99-6.95 (test code = 7621985880) IMM GRAN x10^3 (test 0.03 10*3/uL 0.00-0.06 code = 0726015451) LYMPH x10^3 (test code 1.62 10*3/uL 1.09-3.23 = 731-0) MONO x10^3 (test code 0.43 10*3/uL 0.36-1.02 = 742-7) EOS x10^3 (test code = 0.45 10*3/uL 0.06-0.53 711-2) BASO x10^3 (test code 0.04 10*3/uL 0.01-0.09 = 704-7) Lab Interpretation Abnormal (test code = 99371-4) [facility] GLUCOSE (AUTOMATED)2020-12-12 03:42:00 Test Item Value Reference Range Interpretation Comments POCT GLU (test code = 196 mg/dL 70-110 H Notifi ed Provider [id number]) Lab Interpretation (test Abnormal code = 15492-3) [facility]wayFOLATE2021-03-02 02:24:00 Test Item Value Reference Range Interpretation Comments FOLATE SER (test code = 1327578191) 5.8 ng/mL 3.0-20.0 Lab Interpretation (test code = Normal 56925-6) [facility]wayVITAMIN B12, [id number] 00:55:00 Test Item Value Reference Range Interpretation Comments VIT B12 (test code = 844 pg/mL 240-930 2169609786) JAMES (test code = JAMES) Biotin has been reported to cause a positive bias, interpret results relative to patient's use of biotin. Lab Interpretation (test Normal code = 78355-1) [facility] GLUCOSE (AUTOMATED)2020-12-12 00:14:00 Test Item Value Reference Range Interpretation Comments POCT GLU (test code = 1195013556) 164 mg/dL 70-110 H Lab Interpretation (test code = Abnormal 10288-1) [facility]wayCREATINE [id number] 23:42:00 Test Item Value Reference Range Interpretation Comments CK (test code = 9717773214) <20 33-194 L Lab Interpretation (test code = Abnormal 96525-0) [facility]wayTHYROID STIMULATING [id number] 23:17:00 Test Item Value Reference Range Interpretation Comments TSH (test code = See_Comment Biotin has been 0050253375) reported to cau se a negative bias, interpret resul ts relative to johnny bills's use of biotin. [Automated mess age] The system [employer] generated this result transmitted ref erence range: 0.45 - 4 .70 mIU/L. The refe rence range was not u sed to interpret this result as normal/abnor mal. Lab Interpretation (test Normal code = 31609-0) [facility] HIPS 3 VW [id number] 21:41:53No appreciable fracture lines. RL: 6200 ICAL HISTORY:Pain. COMPARISON:none TECHNIQUE:XR HIPS 3 VW LEFT performed. Technical Quality: Adequate FINDINGS:There are no appreciable fracture lines or subluxations. ?There is grossanatomic alignment. ?No appreciable joint effusion. Moderate to severe hip joint space narrowing, with arthropathy. Marginalosteophytes and subchondral sclerosis. No osseous erosions. [facility], Radiant Results Inft User - 12/11/2020 3:43 PM CSTCLINICAL HISTORY:Pain.COMPARISON:noneTECHNIQUE:XR HIPS 3 VW LEFT performed. Technical Quality: AdequateFINDINGS:There are no appreciable fracture lines or subluxations. There is grossanatomic alignment. No appreciable joint effusion.Moderate to severe hip joint space narrowing, with arthropathy. Marginalosteophytes and subchondral sclerosis. No osseous erosions.IMPRESSIONNo appreciable fracture lines.RL: 6200 [facility] CenterPROCALCITONIN2021-03-01 20:00:00 Test Item Value Reference Range Interpretation Comments Procalcitonin (test 0.13 ng/mL <0.07 H code = 7722405040) JAMES (test code = JAMES) INTERPRETATION OF [...] lung abscess/empyema. For further information please refer to:[email or web address] Lab Interpretation Abnormal (test code = 63893-0) [facility]2020-12-11 19:07:00 Test Item Value Reference Range Interpretation Comments POCT GLU (test code = 6328036427) 274 mg/dL 70-110 H Lab Interpretation (test code = Abnormal 81467-7) [facility]wayMAGNESIUM2021-03-01 18:31:00 Test Item Value Reference Range Interpretation Comments MAGNESIUM (test code = 5379057255) 1.9 mg/dL 1.7-2.4 Lab Interpretation (test code = Normal 02664-8) [facility]wayFERRITIN [id number] 18:31:00 Test Item Value Reference Range Interpretation Comments FERRITIN (test code = 178.0 ng/mL 18.0-464.0 9133688521) JAMES (test code = JAMES) Biotin has been reported to cause a negative bias, interpret results relative to patient's use of biotin. Lab Interpretation (test Normal code = 74957-1) [facility] HEAD WO [id number] 14:36:47 No acute intracranial abnormality. Dilated ventricles out of proportion to the caliber of sulci with diffuseproportional enlargement of the subarachnoid spaces, nonspecific findingmay represent central predominant volume loss, however, normal pressurehydrocephalus can potentially have similar appearance in the appropriateclinical setting. Preliminary Report Dictated by Resident: Roxane Wilson I, Katelyn Martin MD., have reviewed this study and agree with the abovereport.CT HEAD WO CONTRASTHISTORY: Motor neuron disease COMPARISON: None TECHNIQUE: Contiguous [...] CONTRASTHISTORY: Motor neuron disease COMPARISON: NoneTECHNIQUE: Contiguous axialCT images of the head were obtained without theuse of intravenous contrast. Coronal and sagittal refo rmats were provided.FINDINGS:The ventricles are dilated out of [...] the left hemipons,nonspecific (11:17). The barger-white matter differentiationis preserved.Chronic dehiscence of left lamina papyracea noted. The mastoid air cellsand paranasal air sinuses are clear. The calvarium and central skull baseare unremarkable.IMPRESSIONNo acute intracranial abnormality.Dilated ventricles out of proportion to the caliber of sulci with diffuseproportional enlargement of the subarachnoid spaces, nonspecific findingmay represent central predominant volume loss, however, normal pressurehydrocephalus can potentially have similar appearance in the appropria teclinical setting.Preliminary Report Dictated by Resident: Katelyn Cox MD., have reviewed this study and agree with the abovereport.[facility]URINALYSIS2021-03-01 14:28:00 Test Item Value Reference Range Interpretation Comments APPEARANCE (test code = Clear Clear 4131463813) COLOR (test code = Yellow Yellow 0580153051) PH (test code = 4.8-8.0 0433718179) SP GRAVITY (test code = 1.003-1.030 2942860943) GLU U QUAL (test code = 500 mg/dL Normal A 5177332810) BLOOD (test code = Negative Negative 0295051306) KETONES (test code = 5 mg/dL Negative A 3596591307) PROTEIN (test code = Negative Negative 2887-8) UROBILIN (test code = Normal Normal 6295043623) BILIRUBIN (test code = Negative Negative 2546109171) NITRITE (test code = Negative Negative 0547819048) LEUK RYAN (test code = Negative Negative 1993598666) RBC/HPF (test code = See_Comment [Autom ated message] 3488312885) The system [employer] generated this result transmit ronan reference range : 0 - 3 HPF. The refe rence range was not u sed to interpret th is result as normal/abnormal . WBC/HPF (test code = See_Comment [Autom ated message] 4053985681) The system [employer] generated this result transmit ronan reference range : 0 - 5 HPF. The refe rence range was not u sed to interpret th is result as normal/abnormal . BACTERIA (test code = Negative Negative 6833306381) MUCOUS (test code = Slight Negative LPF A 0642536307) SQ EPITH (test code = HPF 2518843577) Lab Interpretation (test Abnormal code = 92739-4) [facility] (ID NOW RAPID TESTING)2020-12-11 13:10:00 Test Item Value Reference Range Interpretation Comments SARS-CoV-2 Rapid ID NOW Not Detected Not Detected (test code = 45950-3) JAMES (test code = JAMES) ID NOW COVID-19 Assay is an isothermal nucleic acid amplification test intended for the qualitative detection of nucleic acid from SARS-CoV-2 viral RNA in nasopharyngeal ([employer]) specimens. It is used under Emergency Use [...] indicated. Lab Interpretation Normal (test code = 35312-4) [facility]. METABOLIC PANEL (61525)2020-12-11 12:29:00 Test Item Value Reference Range Interpretation Comments NA (test code = 136 mmol/L 135-145 6854272934) K (test code = 3.5 mmol/L 3.5-5.0 9740661424) CL (test code = 95 mmol/L 98-108 L 7446799445) CO2 TOTAL (test code = 35 mmol/L 23-31 H 6210391012) AGAP (test code = 2-16 6660441758) BUN (test code = 9 mg/dL 7-23 0478087110) GLUCOSE (test code = 329 mg/dL 70-110 H 8827417286) CREATININE (test code = 0.72 mg/dL 0.60-1.25 3904667521) TOTAL BILI (test code = 0.6 mg/dL 0.1-1.8 1154592938) CALCIUM (test code = 9.0 mg/dL 8.6-10.6 4565523166) T PROTEIN (test code = 6.8 g/dL 6.3-8.2 1967710208) ALBUMIN (test code = 3.8 g/dL 3.5-5.0 6592843388) ALK PHOS (test code = 288 U/L 34-122 H 2692860716) ALTv (test code = 46 U/L 5-50 1742-6) AST(SGOT) (test code = 38 U/L 13-40 1565889630) eGFR Calculation mL/min/1.73m2 (Non-) (test code = 6844457713) eGFR Calculation mL/min/1.73m2 () (test code = 1060527304) JAMES (test code = JAMES) Association of [...] tests). Lab Interpretation Abnormal (test code = 85525-7) [facility] ParkwayLactic Acid Whole [id number] 12:23:00 Test Item Value Reference Range Interpretation Comments LACTIC ACID (test code = 2.09 mmol/L 0.50-2.20 7522393123) Lab Interpretation (test code = Normal 12159-2) [facility] WITH [id number] 12:17:00 Test Item Value Reference Range Interpretation [...] RDW-SD (test code = 44.9 fL 38.5-51.6 46881-6) RDW-CV (test code = 15.9 % 12.1-15.4 H 788-0) PLT (test code = See_Comment H [Automated 777-3) message] The sy stem which generated this result transmitted reference range : 150 - 328 10*3/ ?L. The reference r torito was not used to interpret this result as normal/abnormal . MPV (test code = 8.3 fL 9.8-13.0 L 57717-9) NRBC/100 WBC (test See_Comment [Automat ed code = 2598659529) message] The system which generated this result transmitted reference range : 0.0 - 10.0 /100 WBCs. The refer ence range was not u sed to interpret th is result as normal/abnormal . NRBC x10^3 (test code <0.01 See_Comment [Auto mated = 2673859833) message] The s ystem which generated this result transmitted reference range : 10*3/?L. The reference range was not used to interpret this result as normal/abnormal . GRAN MAT (NEUT) % 77.9 % (test code = 770-8) IMM GRAN % (test code 0.50 % = 9856346114) LYMPH % (test code = 12.2 % 736-9) MONO % (test code = 5.2 % 5905-5) EOS % (test code = 3.7 % 713-8) BASO % (test code = 0.5 % 706-2) GRAN MAT x10^3(ANC) 9.57 10*3/uL 1.99-6.95 H (test code = 6615431831) IMM GRAN x10^3 (test 0.06 10*3/uL 0.00-0.06 code = 0534597864) LYMPH x10^3 (test code 1.50 10*3/uL 1.09-3.23 = 731-0) MONO x10^3 (test code 0.64 10*3/uL 0.36-1.02 = 742-7) EOS x10^3 (test code = 0.46 10*3/uL 0.06-0.53 711-2) BASO x10^3 (test code 0.06 10*3/uL 0.01-0.09 = 704-7) Lab Interpretation Abnormal (test code = 34501-2) [facility] ONLY COVID [id number] 18:43:00COVID DMT InterpretationInterpretation/Recommendations: Molecular NAAT Test Results [...] a nasopharyngeal sample, there is approximately a vjq-sr-hagjb chance that the patient was infected and [...] 1-3 weeks after illness onset will indicate whether the patient has produced antibodies to the virus. At this time, it is not known if the production of antibodies indicates whether the patient is immune to future infections with the SARS-CoV-2 virus. --- Interpretation Result Comments:These interpretation comments are based upon aggregate data pooled from the [facility] medical recordincluding both current and prior COVID-19 related testing results for the following [facility]:A. Tests for the Identification of SARS-CoV-2 RNA:SARS-CoV-2 PCR assays including United Aptima, United Fusion, Barrett RealTime, and WatchDox Xpert Xpress. SARS-CoV-2 Rapid ID NOW by the ID NOW assay. ? B. Tests for the Identification of SARS-CoV-2 Antibodies: Chemiluminescent immunoassays including Access SARS-CoV-2 IgM (DXI 600), Attune RTDS Zwmx-LHXN-AmX-2 IgG (Vitros 5600 and Vitros 3600), and Barrett SARS-CoV-2 IgG (DIRECTOR OF OUTREACH I System). These interpretation comments assume that only the above testing was utilized and that the approved acceptable specimen type(s) were used for a given test. These interpretations are autopopulated into [employer] based on computerized algorithms matching an interpretation code number to the patient's set of test results. While a clinical pathologist evaluates the combinations for clinical accuracy, clinical correlation is recommended as it may not take into account very remote prior testing. Furthermore, it does not consider testing a patient may have had outside of the [facility] system. Additionally, it should be noted that the computerized algorithm treats the results for PCR testing and Rapid ID NOW testing (also PCR) synonymously, and thus, refers to both testing methodologies as PCR tests. Given that the sensitivity of [facility]'s Rapid ID NOW testing platform is analogous to PCR-based methods, for most patients this has no significant implications for clinical decision making. However, if a patient with a negative result for Rapid ID NOW continues to have a clinical presentation consistent with COVID-19 infection, negative results should be treated aspresumptive negative and a new specimen should be tested with alternative PCR molecular test. If results for COVID-19 infection continue to be negative in the context of a clinical presentation consistent with a viral respiratory illness, it is possible the patient may have an infection with another respiratory virus, such as influenza, rhinovirus, other coronaviruses that cause the common cold, etc. Influenza testing and if clinically indicated a respiratory pathogen panel may be beneficialin this setting. [facility] LABORATORY SERVICESCOVID TqptcubMSNP-EkD-2 Rapid ID NOW (no units) ? ? Date ? Value ? 08/21/2020 ? Not Detected ? [facility] SERVICESUnBox [facility]2020-08-23 18:25:00 Test Item Value Reference Range Interpretation Comments POCT GLU (test code = 1000587630) 297 mg/dL 70-110 H Lab Interpretation (test code = Abnormal 65314-9) [facility] GLUCOSE (AUTOMATED)2020-08-23 14:25:00 Test Item Value Reference Range Interpretation Comments POCT GLU (test code = 5541222532) 181 mg/dL 70-110 H Lab Interpretation (test code = Abnormal 45989-7) [facility] Metabolic Panel (NA, K, CL, CO2, GLUCOSE, BUN, CREATININE, CA)2020-08-23 11:45:00 Test Item Value Reference Range Interpretation Comments NA (test code = 132 mmol/L 135-145 L 2931794356) K (test code = 4.0 mmol/L 3.5-5 8396754179) CL (test code = 96 mmol/L 98-108 L 0124175586) CO2 TOTAL (test code = 33 mmol/L 23-31 H 3876799619) AGAP (test code = 2-16 6763837317) BUN (test code = 9 mg/dL 7-23 2492550269) GLUCOSE (test code = 176 mg/dL 70-110 H 2482817980) CREATININE (test code = 0.66 mg/dL 0.6-1.25 1168985599) CALCIUM (test code = 8.5 mg/dL 8.6-10.6 L 6290996326) eGFR Calculation mL/min/1.73m2 (Non-) (test code = 2893690989) eGFR Calculation mL/min/1.73m2 () (test code = 5984572217) JAMES (test code = JAMES) Association of [...] tests). Lab Interpretation Abnormal (test code = 66277-5) [facility] [employer] [id number] 11:45:00 Test Item Value Reference Range Interpretation Comments MAGNESIUM (test code = 2245839989) 2.0 mg/dL 1.7-2.4 Lab Interpretation (test code = Normal 49843-3) [facility] with [id number] 11:38:00 Test Item Value Reference Range Interpretation Comments WBC (test code = See_Comment [Automated 0190-2) message] The sy stem which generated this result transmitted reference range : 4.20 - 10.70 10*3/?L. The reference range was not used to interpret this result as normal/abnormal . RBC (test code = See_Comment [Automated 229-8) message] The sy stem which generated this [...] RDW-SD (test code = 41.8 fL 38.5-51.6 69951-2) RDW-CV (test code = 14.3 % 12.1-15.4 788-0) PLT (test code = See_Comment H [Automated 777-3) message] The sy stem which generated this result transmitted reference range : 150 - 328 10*3/ ?L. The reference r torito was not used to interpret this result as normal/abnormal . MPV (test code = 8.0 fL 9.8-13 L 33092-6) NRBC/100 WBC (test See_Comment [Automat ed code = 0566131079) message] The system which generated this result transmitted reference range : 0.0 - 10.0 /100 WBCs. The refer ence range was not u sed to interpret th is result as normal/abnormal . NRBC x10^3 (test code <0.01 See_Comment [Auto mated = 5905214250) message] The s ystem which generated this result transmitted reference range : 10*3/?L. The reference range was not used to interpret this result as normal/abnormal . GRAN MAT (NEUT) % 61.5 % (test code = 770-8) IMM GRAN % (test code 2.00 % = 1982057026) LYMPH % (test code = 25.5 % 736-9) MONO % (test code = 6.3 % 5905-5) EOS % (test code = 3.7 % 713-8) BASO % (test code = 1.0 % 706-2) GRAN MAT x10^3(ANC) 5.29 10*3/uL 1.99-6.95 (test code = 3267682111) IMM GRAN x10^3 (test 0.17 10*3/uL 0-0.06 H code = 7416015459) LYMPH x10^3 (test code 2.19 10*3/uL 1.09-3.23 = 731-0) MONO x10^3 (test code 0.54 10*3/uL 0.36-1.02 = 742-7) EOS x10^3 (test code = 0.32 10*3/uL 0.06-0.53 711-2) BASO x10^3 (test code 0.09 10*3/uL 0.01-0.09 = 704-7) Lab Interpretation Abnormal (test code = 47807-8) [facility] GLUCOSE (AUTOMATED)2020-08-23 10:22:00 Test Item Value Reference Range Interpretation Comments POCT GLU (test code = 6597343419) 164 mg/dL 70-110 H Lab Interpretation (test code = Abnormal 45781-7) [facility] GLUCOSE (AUTOMATED)2020-08-23 05:56:00 Test Item Value Reference Range Interpretation Comments POCT GLU (test code = 2090957308) 242 mg/dL 70-110 H Lab Interpretation (test code = Abnormal 95807-3) [facility] GLUCOSE (AUTOMATED)2020-08-23 03:02:00 Test Item Value Reference Range Interpretation Comments POCT GLU (test code = 5881551183) 210 mg/dL 70-110 H Lab Interpretation (test code = Abnormal 12214-8) [facility] GLUCOSE (AUTOMATED)2020-08-22 23:40:00 Test Item Value Reference Range Interpretation Comments POCT GLU (test code = 4471415457) 267 mg/dL 70-110 H Lab Interpretation (test code = Abnormal 63511-5) [facility] GLUCOSE (AUTOMATED)2020-08-22 19:08:00 Test Item Value Reference Range Interpretation Comments POCT GLU (test code = 1928640886) 191 mg/dL 70-110 H Lab Interpretation (test code = Abnormal 38758-2) [facility] GLUCOSE (AUTOMATED)2020-08-22 13:50:00 Test Item Value Reference Range Interpretation Comments POCT GLU (test code = 0055996482) 174 mg/dL 70-110 H Lab Interpretation (test code = Abnormal 93102-0) [facility] [id number] 12:59:00 Test Item Value Reference Range Interpretation Comments URINE CULTURE (test No aerobic growth (< code = 630-4) 1000 CFU/mL) [facility] with [id number] 11:28:00 Test Item Value Reference Range Interpretation [...] RDW-SD (test code = 42.5 fL 38.5-51.6 89120-2) RDW-CV (test code = 14.5 % 12.1-15.4 788-0) PLT (test code = See_Comment H [Automated 777-3) message] The sy stem which generated this result transmitted reference range : 150 - 328 10*3/ ?L. The reference r torito was not used to interpret this result as normal/abnormal . MPV (test code = 8.0 fL 9.8-13 L 56816-8) NRBC/100 WBC (test See_Comment [Automat ed code = 2742725364) message] The system which generated this result transmitted reference range : 0.0 - 10.0 /100 WBCs. The refer ence range was not u sed to interpret th is result as normal/abnormal . NRBC x10^3 (test code <0.01 See_Comment [Auto mated = 2765413964) message] The s ystem which generated this result transmitted reference range : 10*3/?L. The reference range was not used to interpret this result as normal/abnormal . GRAN MAT (NEUT) % 69.1 % (test code = 770-8) IMM GRAN % (test code 2.20 % = 0390114176) LYMPH % (test code = 20.9 % 736-9) MONO % (test code = 5.8 % 5905-5) EOS % (test code = 1.0 % 713-8) BASO % (test code = 1.0 % 706-2) GRAN MAT x10^3(ANC) 6.51 10*3/uL 1.99-6.95 (test code = 2922306726) IMM GRAN x10^3 (test 0.21 10*3/uL 0-0.06 H code = 4223380855) LYMPH x10^3 (test code 1.97 10*3/uL 1.09-3.23 = 731-0) MONO x10^3 (test code 0.55 10*3/uL 0.36-1.02 = 742-7) EOS x10^3 (test code = 0.09 10*3/uL 0.06-0.53 711-2) BASO x10^3 (test code 0.09 10*3/uL 0.01-0.09 = 704-7) BASO STIPPLING (test Present A code = 703-9) BANDS (test code = Increased A 4949847897) TOXIC CHANGES (test Present A code = 803-7) Lab Interpretation Abnormal (test code = 11310-6) [facility] Metabolic Panel (NA, K, CL, CO2, GLUCOSE, BUN, CREATININE, CA)2020-08-22 11:12:00 Test Item Value Reference Range Interpretation Comments NA (test code = 135 mmol/L 135-145 6573510388) K (test code = 3.6 mmol/L 3.5-5 2655927149) CL (test code = 99 mmol/L 98-108 0897142060) CO2 TOTAL (test code = 31 mmol/L 23-31 3192573708) AGAP (test code = 2-16 9653515774) BUN (test code = 9 mg/dL 7-23 8673777166) GLUCOSE (test code = 198 mg/dL 70-110 H 9699000145) CREATININE (test code = 0.72 mg/dL 0.6-1.25 0960125561) CALCIUM (test code = 8.3 mg/dL 8.6-10.6 L 5023867971) eGFR Calculation mL/min/1.73m2 (Non-) (test code = 7808169613) eGFR Calculation mL/min/1.73m2 () (test code = 9862103146) JAMES (test code = JAMES) Association of [...] tests). Lab Interpretation Abnormal (test code = 55954-3) [facility] [id number] 11:12:00 Test Item Value Reference Range Interpretation Comments MAGNESIUM (test code = 0211609960) 2.0 mg/dL 1.7-2.4 Lab Interpretation (test code = Normal 44533-7) [facility]wayLipid [facility] (Total Cholesterol, Triglycerides, HDL) - [id number] 11:12:00 Test Item Value Reference Range Interpretation Comments CHOL (test code = 155 mg/dL 120-200 7542403943) HDL (test code = 42 mg/dL >40 2475586581) HDLC RATIO (test code = See_Comment [Au tomated message] 6476108756) The system [email or web address] generated this result transmit ronan reference range : <=5.0. The refe rence range was not u sed to interpret th is result as normal/abnormal . TRIG (test code = 186 mg/dL 30-170 H 1792075521) LDL CHOL (test code = 76 mg/dL See_Comment [Auto mated message] 95631-3) The system [email or web address] generated this result transmit ronan reference range : <=160. The refe rence range was not u sed to interpret th is result as normal/abnormal . VLDL (test code = 37 mg/dL 5-60 7637794210) Lab Interpretation (test Abnormal code = 39573-1) [facility]wayHEPAT[facility] FUN[facility] PAN[facility] (91108) (ALB,T.PRO,BILI T,BU/BC,ALT,AST,ALK PHOS)2020-08-22 11:12:00 Test Item Value Reference Range Interpretation Comments TOTAL BILI (test code = 8028964513) 0.6 mg/dL 0.1-1.1 BILI UNCON (test code = 7770347294) 0.2 mg/dL 0.1-1.1 BILI CONJ (test code = 4831222638) 0.0 mg/dL 0-0.3 T PROTEIN (test code = 6394073024) 6.0 g/dL 6.3-8.2 L ALBUMIN (test code = 8959028648) 2.8 g/dL 3.5-5 L ALK PHOS (test code = 6864668722) 222 U/L 34-122 H ALTv (test code = 1742-6) 27 U/L 5-50 AST(SGOT) (test code = 6716730291) 30 U/L 13-40 Lab Interpretation (test code = Abnormal 14782-0) [facility] GLUCOSE (AUTOMATED)2020-08-22 10:11:00 Test Item Value Reference Range Interpretation Comments POCT GLU (test code = 6781814180) 196 mg/dL 70-110 H Lab Interpretation (test code = Abnormal 73575-6) [facility] GLUCOSE (AUTOMATED)2020-08-22 07:15:00 Test Item Value Reference Range Interpretation Comments POCT GLU (test code = 6292216949) 183 mg/dL 70-110 H Lab Interpretation (test code = Abnormal 76836-9) [facility] GLUCOSE (AUTOMATED)2020-08-22 02:30:00 Test Item Value Reference Range Interpretation Comments POCT GLU (test code = 2773505691) 295 mg/dL 70-110 H Lab Interpretation (test code = Abnormal 02250-5) [facility] GLUCOSE (AUTOMATED)2020-08-21 23:46:00 Test Item Value Reference Range Interpretation Comments POCT GLU (test code = 1514680784) 258 mg/dL 70-110 H Lab Interpretation (test code = Abnormal 97378-4) [facility]wayC-REACTIVE [id number] 18:50:00 Test Item Value Reference Range Interpretation Comments CRP (test code = 8110385046) 15.5 mg/dL <0.8 H Lab Interpretation (test code = Abnormal 71245-8) [facility])2020-08-21 18:21:00 Test Item Value Reference Range Interpretation Comments POCT GLU (test code = 0984114504) 297 mg/dL 70-110 H Lab Interpretation (test code = Abnormal 00907-8) [facility] ParkwayETHANOL2020-11-09 16:24:00 Test Item Value Reference Range Interpretation Comments ALCOHOL (test code = <10 mg/dL 5124528961) JAMES (test code = Toxic Greater than or JAMES) equal to 80 mg/dL. NOTE: Whole blood values are approximately 10% to 15% lower than serum and plasma. [facility] ParkwayGAL/CLC ONLY - URINE DRUG (IMMUNOASSAY) - 4 ER [id number] 15:36:00 Test Item Value Reference Range Interpretation Comments AMPHET (test code = Negative Negative 4030474865) Cocaine Metabolite (test Negative Negative code = 1973480506) OPIATES (test code = Presumptive Positive Negative A 1352414733) THC (test code = Negative Negative 3935073707) JAMES (test code = JAMES) Urine Drug Cutoff Ranges Amphetamine: ? 1,000 ng/mLCocaine: ? 150 ng/mLOpiates: ? 300 ng/mLCannabinoids: ?50 ng/mL The results are to be used only for medical (i.e., treatment) purposes. Unconfirmed screening results must not be used for non-medical purposes (e.g., employment testing, legal testing). Lab Interpretation (test Abnormal code = 78326-7) [facility] ONLY - SYPHILIS [id number] 15:04:00 Test Item Value Reference Range Interpretation Comments Syphilis IgG/IgM (test Non-reactive Non-reactive code = 89963-0) JAMES (test code = JAMES) Non-reactive - No serologic evidence of T. pallidum infection. Cannot exclude incubating or early syphilis. Submit a second specimen in 2-4 weeks if syphilis is clinically suspected. Equivocal - Further testing to follow. Reactive - Further testing to follow. Lab Interpretation (test Normal code = 89042-6) [facility] ParkwayUrinalysis2020-11-09 14:52:00 Test Item Value Reference Range Interpretation Comments APPEARANCE (test code = Clear Clear 7057566631) COLOR (test code = Yellow Yellow 0260591679) PH (test code = 4.8-8.0 0246345272) SP GRAVITY (test code = 1.003-1.030 6825200471) GLU U QUAL (test code = 500 mg/dL Normal A 4387310857) BLOOD (test code = Negative Negative 2408578835) KETONES (test code = 20 mg/dL Negative A 7181990350) PROTEIN (test code = Negative Negative 2887-8) UROBILIN (test code = Normal Normal 3561051567) BILIRUBIN (test code = Negative Negative 6486072524) NITRITE (test code = Negative Negative 6117100385) LEUK RYAN (test code = Negative Negative 5539244271) RBC/HPF (test code = <1 See_Comment [Autom ated message] 7234000516) The system [email or web address] generated this result transmit ronan reference range : 0 - 3 HPF. The refe rence range was not u sed to interpret th is result as normal/abnormal . WBC/HPF (test code = See_Comment [Autom ated message] 0802927595) The system [email or web address] generated this result transmit ronan reference range : 0 - 5 HPF. The refe rence range was not u sed to interpret th is result as normal/abnormal . BACTERIA (test code = Negative Negative 8607993118) MUCOUS (test code = Slight Negative LPF A 1661607082) Lab Interpretation (test Abnormal code = 34601-9) [facility] ParkwayACTIVATED PARTIAL THRMPLAS [id number] 13:45:00 Test Item Value Reference Range Interpretation Comments APTT Patient (test code = See_Comment [ Automated message] 3173-2) The system [email or web address] generated this result transmitted ref erence range: 26 - 36 Seconds. The re ference range was not u sed to interpret this result as normal/abnor mal. Lab Interpretation (test Normal code = 70836-8) [facility]wayPO[facility]SE [facility]AUTOMATED)2020-08-21 13:45:00 Test Item Value Reference Range Interpretation Comments POCT GLU (test code = 6727772890) 246 mg/dL 70-110 H Lab Interpretation (test code = Abnormal 30959-2) [facility] ParkwayHIV 1/2 AG-AB WITH [id number] 12:32:00 Test Item Value Reference Range Interpretation Comments HIV Negative Negative Semi-quantitative (test code = 92581-3) JAMES (test code = Non-reactive for HIV-1 JAMES) antigen and HIV-1/HIV-2 antibodies. ?No laboratory evidence of HIV infection. ?Repeat in 2-4 weeks if acute HIV infection is suspected. [facility] ParkwayCBC WITH [id number] 12:18:00 Test Item Value Reference Range Interpretation [...] RDW-SD (test code = 44.4 fL 38.5-51.6 05211-6) RDW-CV (test code = 14.5 % 12.1-15.4 788-0) PLT (test code = See_Comment H [Automated 777-3) message] The sy stem which generated this result transmitted reference range : 150 - 328 10*3/ ?L. The reference r torito was not used to interpret this result as normal/abnormal . MPV (test code = 8.5 fL 9.8-13 L 67159-2) NRBC/100 WBC (test See_Comment [Automat ed code = 0219880554) message] The system which generated this result transmitted reference range : 0.0 - 10.0 /100 WBCs. The refer ence range was not u sed to interpret th is result as normal/abnormal . NRBC x10^3 (test code <0.01 See_Comment [Auto mated = 5020410636) message] The s ystem which generated this result transmitted reference range : 10*3/?L. The reference range was not used to interpret this result as normal/abnormal . GRAN MAT (NEUT) % 90.4 % (test code = 770-8) IMM GRAN % (test code 1.30 % = 3686754794) LYMPH % (test code = 7.1 % 736-9) MONO % (test code = 0.5 % 5905-5) EOS % (test code = 0.1 % 713-8) BASO % (test code = 0.6 % 706-2) GRAN MAT x10^3(ANC) 7.74 10*3/uL 1.99-6.95 H (test code = 3752769600) IMM GRAN x10^3 (test 0.11 10*3/uL 0-0.06 H code = 3789717733) LYMPH x10^3 (test code 0.61 10*3/uL 1.09-3.23 L = 731-0) MONO x10^3 (test code 0.04 10*3/uL 0.36-1.02 L = 742-7) EOS x10^3 (test code = <0.03 0.06-0.53 L 711-2) BASO x10^3 (test code 0.05 10*3/uL 0.01-0.09 = 704-7) POLYCHROMASIA (test 2+ See_Comment [Automa ronan code = 23978-4) message] The system which generated this result transmitted reference range : 2+. The referen ce range was not u sed to interpret th is result as normal/abnormal . BANDS (test code = Increased A 5355751079) Lab Interpretation Abnormal (test code = 72655-0) [facility] ParkwayPROCALCITONIN2020-11-09 11:48:00 Test Item Value Reference Range Interpretation Comments Procalcitonin (test 0.36 ng/mL <0.07 H code = 8753381651) JAMES (test code = JAMES) INTERPRETATION OF [...] lung abscess/empyema. For further information please refer to:[email or web address] Lab Interpretation Abnormal (test code = 07021-7) [facility] ParkwayLANVATE [id number] 10:53:00 Test Item Value Reference Range Interpretation Comments LDH (test code = 9111725919) 351 U/L 300-600 Lab Interpretation (test code = Normal 09490-5) [facility] ParkwaySEDIMENTATION [id number] 10:07:00 Test Item Value Reference Range Interpretation Comments ESR (test code = See_Comment H [Automated message] 2096078501) The system [email or web address] generated this result transmitted ref erence range: 0 - 10 m m/HR. The reference r torito was not used to interpret this result as normal/abnor mal. Lab Interpretation (test Abnormal code = 15902-3) [facility]wayPONV GLUCOSE (AUTOMATED)2020-08-21 09:45:00 Test Item Value Reference Range Interpretation Comments POCT GLU (test code = 0408381064) 287 mg/dL 70-110 H Lab Interpretation (test code = Abnormal 49467-5) [facility] ParkwayGlycosylated Hemoglobin (A1C)2020-08-21 09:29:00 Test Item Value Reference Range Interpretation Comments HGB A1C (test code = 4548-4) 9.8 % 4-6 H Lab Interpretation (test code = Abnormal 14063-3) [facility]wayCOVID-19 (ID NOW RAPID TESTING)2020-08-21 09:13:00 Test Item Value Reference Range Interpretation Comments SARS-CoV-2 Rapid ID NOW Not Detected Not Detected (test code = 63407-2) JAMES (test code = JAMES) ID NOW COVID-19 Assay is an isothermal nucleic acid amplification test intended for the qualitative detection of nucleic acid from SARS-CoV-2 viral RNA in nasopharyngeal ([employer]) specimens. It is used under Emergency Use [...] indicated. Lab Interpretation Normal (test code = 26124-5) [facility] ParkwayProthrombin Time / [id number] 08:59:00 Test Item Value Reference Range Interpretation Comments PROTIME PATIENT (test See_Comment H [Auto mated message] code = 5964-2) The system [employer] generated this result transmitted ref erence range: 10.1 - 1 2.6 Seconds. The reference range was not used to int erpret this result as normal/abnormal . INR (test code = 6301-6) Nor mal INR <1.1; Warfarin Therap eutic range 2.0 to 3. 0 or 2.5 to 3.5, dep ending upon the indica tions. Lab Interpretation (test Abnormal code = 18061-3) [facility] ParkwayaPTT2020-11-09 08:59:00 Test Item Value Reference Range Interpretation Comments APTT Patient (test code = See_Comment [ Automated message] 3173-2) The system [email or web address] generated this result transmitted ref erence range: 26 - 36 Seconds. The re ference range was not u sed to interpret this result as normal/abnor mal. Lab Interpretation (test Normal code = 39433-8) [facility]wayBASI METABOLIC PANEL (NA, K, CL, CO2, GLUCOSE, BUN, CREATININE, CA)2020-08-21 08:52:00 Test Item Value Reference Range Interpretation Comments NA (test code = 136 mmol/L 135-145 2624428236) K (test code = 4.3 mmol/L 3.5-5 3439017367) CL (test code = 104 mmol/L 98-108 5540503793) CO2 TOTAL (test code = 24 mmol/L 23-31 5435473085) AGAP (test code = 2-16 3636248303) BUN (test code = 8 mg/dL 7-23 0167479404) GLUCOSE (test code = 308 mg/dL 70-110 H 2074694025) CREATININE (test code = 0.72 mg/dL 0.6-1.25 8044755396) CALCIUM (test code = 7.8 mg/dL 8.6-10.6 L 0413647212) eGFR Calculation mL/min/1.73m2 (Non-) (test code = 4936164182) eGFR Calculation mL/min/1.73m2 () (test code = 4873422509) JAMES (test code = JAMES) Association of [...] tests). Lab Interpretation Abnormal (test code = 10725-4) [facility] ParkwayHEPATIC FUNCTION PANEL (03236) (ALB,T.PRO,BILI T,BU/BC,ALT,AST,ALK PHOS)2020-08-21 08:52:00 Test Item Value Reference Range Interpretation Comments TOTAL BILI (test code = 3066245633) 0.8 mg/dL 0.1-1.1 BILI UNCON (test code = 1916643711) 0.3 mg/dL 0.1-1.1 BILI CONJ (test code = 9890512278) 0.0 mg/dL 0-0.3 T PROTEIN (test code = 1963219847) 5.7 g/dL 6.3-8.2 L ALBUMIN (test code = 5690658598) 2.7 g/dL 3.5-5 L ALK PHOS (test code = 1737811419) 245 U/L 34-122 H ALTv (test code = 1742-6) 37 U/L 5-50 AST(SGOT) (test code = 3701293007) 43 U/L 13-40 H Lab Interpretation (test code = Abnormal 51052-2) [facility]
--- NOTE | 2022-06-06 04:19 | EDPHYS ---
Physician Documentation [facility] Name: Kiel Ngo Age: 71 yrs Sex: Male : 1950 Arrival Date: 06/06/2022 Time: 04:03 Bed 7 Private MD: ED Physician Stu Banerjee HPI: 06/06 04:13 This 71 yrs old Male presents to ER via Stretcher with complaints of pain in chetan hips, rash and out of meds. 04:13 The patient or guardian reports decreased range of motion, pain. that occurred at an [facility] unknown site. The complaints affect the back and pelvis. Onset: The symptoms/episode began/occurred 2 day(s) ago. Modifying factors: The symptoms are alleviated by remaining still, the symptoms are aggravated by any movement. Associated signs and symptoms: Loss of consciousness: the patient experienced no loss of consciousness, Pertinent positives: weakness. Severity of symptoms: At their worst the symptoms were moderate, in the emergency department the symptoms are unchanged. The patient has not experienced similar symptoms in the past. Historical: - Allergies: 04:06 Demerol; kl 04:06 metformin; kl 04:06 Morphine; kl 04:13 Klonopin; kl - Home Meds: 04:06 dilaaudid [Active]; kl 04:13 Klonopin 2 mg Oral TbDi 2 tabs 4 times a day [Active]; BP Med [Active]; muscle relaxer kl four times a day [Active]; - PMHx: 04:06 Atrial fibrillation; chronic back pain; Chronic right leg pain; neuropathy; kl - PSHx: 04:06 back sx; PANCREAS SX; R. Ankle SX; kl - Immunization history:: Adult Immunizations not up to date. - Social history:: Smoking status: Patient denies any tobacco usage or history of. - Family history:: not pertinent. ROS: 04:13 Constitutional: Negative for fever, chills, and weight loss, Eyes: Negative for injury, chetan pain, redness, and discharge, ENT: Negative for injury, pain, and discharge, Neck: Negative for injury, pain, and swelling, Cardiovascular: Negative for chest pain, palpitations, and edema, Respiratory: Negative for shortness of breath, cough, wheezing, and pleuritic chest pain, Abdomen/GI: Negative for abdominal pain, nausea, vomiting, diarrhea, and constipation, : Negative for injury, bleeding, discharge, and swelling, MS/Extremity: Negative for injury and deformity, Neuro: Negative for headache, weakness, numbness, tingling, and seizure, Psych: Negative for depression, anxiety, suicide ideation, homicidal ideation, and hallucinations, Allergy/Immunology: Negative for hives, rash, and allergies, Endocrine: Negative for neck swelling, polydipsia, polyuria, polyphagia, and marked weight changes, Hematologic/Lymphatic: Negative for swollen nodes, abnormal bleeding, and unusual bruising. 04:13 Back: Positive for decreased range of motion, pain at rest. 04:13 MS/extremity: Negative for acute changes, swelling, tenderness. 04:13 Skin: Positive for rash, Negative for diaphoresis, lesions, swelling. Exam: 04:13 Constitutional: This is a well developed, well nourished patient who is awake, alert, chetan and in no acute distress. Head/Face: Normocephalic, atraumatic. Eyes: Pupils equal round and reactive to light, extra-ocular motions intact. Lids and lashes normal. Conjunctiva and sclera are non-icteric and not injected. Cornea within normal limits. Periorbital areas with no swelling, redness, or edema. ENT: Nares patent. No nasal discharge, no septal abnormalities noted. Tympanic membranes are normal and external auditory canals are clear. Oropharynx with no redness, swelling, or masses, exudates, or evidence of obstruction, uvula midline. Mucous membranes moist. Neck: Trachea midline, no thyromegaly or masses palpated, and no cervical lymphadenopathy. Supple, full range of motion without nuchal rigidity, or vertebral point tenderness. No Meningismus. Chest/axilla: Normal chest wall appearance and motion. Nontender with no deformity. No lesions are appreciated. Cardiovascular: Regular rate and rhythm with a normal S1 and S2. No gallops, murmurs, or rubs. Normal PMI, no JVD. No pulse deficits. Respiratory: Lungs have equal breath sounds bilaterally, clear to auscultation and percussion. No rales, rhonchi or wheezes noted. No increased work of breathing, no retractions or nasal flaring. Abdomen/GI: Soft, non-tender, with normal bowel sounds. No distension or tympany. No guarding or rebound. No evidence of tenderness throughout. Male : Normal genitalia with no discharge or lesions. Skin: Warm, dry with normal turgor. Normal color with no rashes, no lesions, and no evidence of cellulitis. Neuro: Awake and alert, GCS 15, oriented to person, place, time, and situation. Cranial nerves II-XII grossly intact. Motor strength 5/5 in all extremities. Sensory grossly intact. Cerebellar exam normal. Normal gait. Psych: Awake, alert, with orientation to person, place and time. Behavior, mood, and affect are within normal limits. 04:13 Back: pain, that is mild, that is moderate, ROM is painful, normal spinal alignment noted, CVA tenderness, is absent, vertebral tenderness, is not appreciated, muscle spasm, is not present. Vital Signs: 04:04 BP 138 / 91; Pulse 82; Resp 20; Temp 98(O); Pulse Ox 97% on R/A; Pain 10/10; kl MDM: 04:03 Patient medically screened. [facility] 04:13 Differential diagnosis: arthritis, strain. Data reviewed: vital signs, nurses notes, [facility] EMS record. Data interpreted: threat monitoring analyst: not applicable for this patient encounter. rate is 82 beats/min, rhythm is regular, Pulse oximetry: on room air is 97 %. Test interpretation: by ED physician or midlevel provider: ECG, plain radiologic studies. 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 Administered Medications: 04:27 Drug: Dilaudid 3 mg Route: IM; Site: right deltoid; kl 04:33 Follow up: Response: No adverse reaction kl 04:27 Drug: Phenergan (promethazine) 25 mg Route: IM; Site: left deltoid; kl 04:33 Follow up: Response: No adverse reaction kl 04:27 Drug: Benadryl (diphenhydrAMINE) 50 mg Route: IM; Site: left deltoid; kl 04:33 Follow up: Response: No adverse reaction kl 04:31 Drug: Pepcid (famotidine) 40 mg Route: PO; kl Disposition Summary: 06/06/22 04:18 Discharge Ordered Location: Home [facility] Problem: new chetan Symptoms: have improved chetan Condition: Stable chetan Diagnosis - Chronic pain, not elsewhere classified chetan - Dermatitis, unspecified chetan Followup: chetan - With: Private Physician - When: 2 - 3 days - Reason: Recheck today's complaints, Continuance of care, Re-evaluation by your physician Followup: chetan - With: Madhu Francois DO - When: 2 - 3 days - Reason: Recheck today's complaints, Continuance of care, Re-evaluation by your physician Discharge Instructions: - Discharge Summary Sheet chetan - Rash, Adult chetan - Chronic Back Pain, [id number] chetan - Rash, Adult, [id number] [facility] Forms: - Medication Reconciliation Form chetan - Thank You Letter chetan - Antibiotic Education [facility] - Prescription Opioid Use [facility] Prescriptions: - Benadryl 25 mg Oral Capsule - take 2 capsule by ORAL route every 6 hours As needed; 56 tablet; Refills: 0, [facility] Product Selection Permitted - Pepcid 20 mg Oral Tablet - take 1 tablet by ORAL route every 12 hours for 21 days; 42 tablet; Refills: 0, [facility] Product Selection Permitted Signatures: Letty Mccormack, RN RN Stu Early MD MD cha
--- NOTE | 2022-06-06 04:19 | ER ---
Nurse's Notes [facility] Name: Kiel Ngo Age: 71 yrs Sex: Male : 1950 Arrival Date: 06/06/2022 Time: 04:03 Bed 7 Private MD: Diagnosis: Chronic pain, not elsewhere classified;Dermatitis, unspecified Presentation: 06/06 04:04 Chief complaint: Patient states: out of pain meds x 1 week unable to go see dr benjamin ko also reports itching pt takes Dilaudid and benadryl. Coronavirus screen: Vaccine status: Patient reports being unvaccinated. Ebola Screen: Patient negative for fever greater than or equal to 101.5 degrees Fahrenheit, and additional compatible Ebola Virus Disease symptoms. Initial Sepsis Screen: Does the patient meet any 2 criteria? No. Patient's initial sepsis screen is negative. Does the patient have a suspected source of infection? No. Patient's initial sepsis screen is negative. Risk Assessment: Do you want to hurt yourself or someone else? Patient reports no desire to harm self or others. Onset of symptoms was May 29, 2022. 04:04 Method Of Arrival: Stretcher 04:04 Acuity: JOZEF 4 kl Triage Assessment: 04:07 General: Appears in no apparent distress. unkempt, Behavior is calm, cooperative. Pain: Complains of pain in buttocks and back Pain currently is 10 out of 10 on a pain scale. EENT: No deficits noted. No signs and/or symptoms were reported regarding the EENT system. Neuro: No deficits noted. Villalobos Agitation-Sedation Scale (RASS): 0 - Alert and Calm. Cardiovascular: No deficits noted. Respiratory: No deficits noted. Airway is patent Respiratory effort is even, unlabored, Respiratory pattern is regular, symmetrical. GI: No deficits noted. No signs and/or symptoms were reported involving the gastrointestinal system. : No deficits noted. No signs and/or symptoms were reported regarding the genitourinary system. Derm: Rash noted that is red. Historical: - Allergies: 04:06 Demerol; kl 04:06 metformin; kl 04:06 Morphine; kl 04:13 Klonopin; kl - Home Meds: 04:06 dilaaudid [Active]; kl 04:13 Klonopin 2 mg Oral TbDi 2 tabs 4 times a day [Active]; BP Med [Active]; muscle relaxer kl four times a day [Active]; - PMHx: 04:06 Atrial fibrillation; chronic back pain; Chronic right leg pain; neuropathy; kl - PSHx: 04:06 back sx; PANCREAS SX; R. Ankle SX; kl - Immunization history:: Adult Immunizations not up to date. - Social history:: Smoking status: Patient denies any tobacco usage or history of. - Family history:: not pertinent. Screenin:09 Abuse screen: Denies threats or abuse. Nutritional screening: No deficits noted. kl Tuberculosis screening: No symptoms or risk factors identified. Fall Risk None identified. Vital Signs: 04:04 BP 138 / 91; Pulse 82; Resp 20; Temp 98(O); Pulse Ox 97% on R/A; Pain 10/10; kl ED Course: 04:03 Patient arrived in ED. mw2 04:03 Stu Banerjee MD is Attending Physician. [facility] 04:06 Triage completed. 04:18 Madhu Francois DO is Referral Physician. [facility] Administered Medications: 04:27 Drug: Dilaudid 3 mg Route: IM; Site: right deltoid; kl 04:33 Follow up: Response: No adverse reaction kl 04:27 Drug: Phenergan (promethazine) 25 mg Route: IM; Site: left deltoid; kl 04:33 Follow up: Response: No adverse reaction kl 04:27 Drug: Benadryl (diphenhydrAMINE) 50 mg Route: IM; Site: left deltoid; kl 04:33 Follow up: Response: No adverse reaction 04:31 Drug: Pepcid (famotidine) 40 mg Route: PO; Outcome: 04:18 Discharge ordered by . [facility] 04:50 Patient left the ED. Signatures: Letty Mccormack RN RN kl Anderson, Corey, MD MD cha [place], MyKena [email or web address]
[2022-06-06] MEDS ORDERED: PROMETHAZINE INJ 25 MG/ML AMP ONE (04:26)
[2022-06-06] MEDS ORDERED: DIPHENHYDRAMINE 50 MG/ML VIAL ONE (04:26)
[2022-06-06] MEDS ORDERED: HYDROMORPHONE HCL 2 MG/ML inj ONE (04:27)
[2022-06-06] MEDS ORDERED: HYDROMORPHONE HCL 1 MG/ML INJ ONE (04:28)
[2022-06-06] MEDS ORDERED: FAMOTIDINE 20 MG TAB ONE (04:38)
[2022-06-06 05:35] VITALS: BP 138/91; TEMP 98; O2SAT 97
== END 2022-06-06 04:50 | disposition home or self-care (01) ==
LOC: ER 04:01
DX: G89.29 Other chronic pain (principal); L30.9 Dermatitis, unspecified; I48.91 Unspecified atrial fibrillation; Z88.5 Allergy status to narcotic agent; Z88.8 Allergy status to other drugs, medicaments and biological substances
CPT/HCPCS: 96372; 99282; J2550; J1200; J1170 ×2

== ENCOUNTER 2022-06-07 08:09 | Emergency (ER) | payer OTHER ==
--- OUTSIDE RECORDS SUMMARY | 2022-06-07 08:18 | XMS REPORT | Continuity of Care Document ---
:1950 Author Organization [facility] t Address [address] [place] [address] Care Team Providers Name Role Phone JESSE [...] PACO LACEY Attending Clinician Unavailable Doctor Unassigned, Tropic Attending Clinician Unavailable Wilder VILLAREAL, Angi K.H. Attending Clinician Jl Mccabe MD Attending Clinician Kelly Washington MD Attending Clinician [phone] Mukul Gaines MD Attending Clinician MUKUL GALLARDO Admitting Clinician Unavailable Rene Harrison MD Admitting Clinician Nicci VILLAREAL Mukul Anand Admitting Clinician Payers Payer Name Policy Type Policy Number Effective Date Expiration Date Tony doe MEDICARE PART A [id number] 2007 \\T\\ B 00:00:00 [employer] INDEMNITY [id number] 2016 00:00:00 MEDICARE PART A [id number] 2014 \\T\\ B - MEDICARE 00:00:00 INDEMNITY/TRADITIO [id number] NAL CHOICE - [employer] 00:00:00 Problems Condition [...] ents Source Name Type Date Date Clinician [place] Propensi Active Rash 2019- Univers ty to 1-10 ity of adverse 00:00: [place] reaction 00 Medical [facility] PEACH DRUG Active Rash 2019- Univers INGREDI [...] of adverse 00:00: [place] reaction 00 Medical [facility] Glimepir Propensi Active Hives 2011-0 Univer s efren ty to 3-16 ity of adverse 00:00: [place] reaction 00 Medical [facility] Metformi Propensi Active Itching Unive rs n [...] Quantity Comments Source Exposure to Not sure Secor of SARS-CoV-2 [place] [facility] (event) Branch History of Chews Tobacco University of tobacco use [place] [facility] History SDOH 2020-11-17 2020-11-17 5 University o f Financial 00:00:00 00:00:00 [place] [facility] History SDOH Food 2020-11-17 2020-11-17 1 Univers ity of Worry 00:00:00 00:00:00 [place] [facility] History SDGA Food 2020-11-17 2020-11-17 1 Univers ity of Scarcity 00:00:00 00:00:00 [place] [facility] History SDOH 2020-11-17 2020-11-17 1 University o f Transport Med 00:00:00 00:00:00 [place] [facility] al Branch History SDOH 2020-11-17 2020-11-17 1 University o f Transport Non-Med 00:00:00 00:00:00 [facility] edical Branch Education 2020-11-16 2020-11-16 21 Secor of 00:00:00 00:00:00 [facility] Alcohol intake 2020-11-16 2020-11-16 Ex-drinker [facility] 00:00:00 00:00:00 (finding) [facility] Tobacco use and 2020-08-21 2020-08-21 Former user Universi ty of exposure 00:00:00 00:00:00 [facility] Tobacco Comment 2020-08-21 2020-08-21 quit 10 years Univer sity of 00:00:00 00:00:00 ago, started in [place] Med ical 2nd year of Branch college (~40 years) Alcohol Comment 2020-08-21 2020-08-21 Used to have 2-3 Uni versity of 00:00:00 00:00:00 six-packs of [place] Medica l beer daily x 20 Branch years, quit 2005 History [facility] 2020-08-21 2020-08-21 99 University o f Alcohol Frequency 00:00:00 00:00:00 [place] [facility] edical Branch History [facility] 2020-08-21 2020-08-21 99 University o f Alcohol Std 00:00:00 00:00:00 [place] [facility] Drinks Branch History [facility] 2020-08-21 2020-08-21 99 Secor o f Alcohol Binge 00:00:00 00:00:00 [facility] al Branch Sex [birth year] Universit y of 00:00:00 00:00:00 [facility] Smoking Status Start Date Stop Date Source Never smoker [facility] Medications Ordered Filled Start [...] by ity of tablet 22:47: mouth at [place] 18 bedtime. Medical Branch HYDROmorpho Yes 4mg [...] by ity of tablet 22:47: mouth at [place] 18 bedtime. Medical Branch HYDROmorpho 2020-0 Yes [...] 0845, Until Discontinu ed, Routine amLODIPine Yes [id number] 10mg Take 1 Univers 10 mg 3-07 tablet by ity of tablet 00:00: mouth [place] 00 daily. Medical Branch clotrimazol 0 Yes [id number] Apply to Univers e 1 % 3-07 face/ears, ity of topical 00:00: armpits, [place] cream 00 pannus and Medical back/any Branch other rash twice a day fluocinonid 2020-0 Yes [id number] Apply to Univers e 0.05 % 3-07 scalp ity of solution 00:00: twice a day Medical Branch triamcinolo Yes [id number] Apply to Univers ne 3-07 back, ity of acetonide 00:00: armpits [place] 0.1 % cream 00 and other Med ical affected Branch areas twice daily, please mix with clotrimazo le hydrOXYzine Yes [id number] 10mg Take 1 Univers 10 mg 3-07 tablet by ity of tablet 00:00: mouth 2 (two) Medical times Branch daily. amLODIPine 0 Yes [id number] 10mg Take 1 Univers 10 mg 3-07 tablet by ity of tablet 00:00: mouth [place] 00 daily. Medical Branch clotrimazol Yes [id number] Apply to Univers e 1 % 3-07 face/ears, ity of topical 00:00: armpits, [place] cream 00 pannus and Medical back/any Branch other rash twice a day fluocinonid 0 Yes [id number] Apply to Univers e 0.05 % 3-07 scalp ity of solution 00:00: twice a day Medical Branch triamcinolo Yes [id number] Apply to Univers ne 3-07 back, ity of acetonide 00:00: armpits [place] 0.1 % cream 00 and other Med ical affected Branch areas twice daily, please mix with clotrimazo le hydrOXYzine Yes [id number] 10mg Take 1 Univers 10 mg 3-07 tablet by ity of tablet 00:00: mouth 2 (two) Medical times Branch daily. amLODIPine 2020-0 Yes [id number] 10mg Take 1 Univers 10 mg 3-07 tablet by ity of tablet 00:00: mouth [place] 00 daily. Medical Branch clotrimazol 2020-0 Yes [id number] Apply to Univers e 1 % 3-07 face/ears, ity of topical 00:00: armpits, [place] cream 00 pannus and Medical back/any Branch other rash twice a day fluocinonid 2020-0 Yes [id number] Apply to Univers e 0.05 % 3-07 scalp ity of solution 00:00: twice a day Medical Branch triamcinolo 2021-0 Yes [id number] Apply to Univers ne 3-07 back, ity of acetonide 00:00: armpits [place] 0.1 % cream 00 and other Med ical affected Branch areas twice daily, please mix with clotrimazo le hydrOXYzine Yes [id number] 10mg Take 1 Univers 10 mg 3-07 tablet by ity of tablet 00:00: mouth 2 [place] 00 (two) Medical times Branch daily. amLODIPine Yes [id number] 10mg Take 1 Univers 10 mg 3-07 tablet by ity of tablet 00:00: mouth [place] 00 daily. Medical Branch clotrimazol Yes [id number] Apply to Univers e 1 % 3-07 face/ears, ity of topical 00:00: armpits, [place] cream 00 pannus and Medical back/any Branch other rash twice a day fluocinonid Yes [id number] Apply to Univers e 0.05 % 3-07 scalp ity of solution 00:00: twice a [place] 00 day Medical Branch triamcinolo Yes [id number] Apply to Univers ne 3-07 back, ity of acetonide 00:00: armpits [place] 0.1 % cream 00 and other Med ical affected Branch areas twice daily, please mix with clotrimazo le hydrOXYzine Yes [id number] 10mg Take 1 Univers 10 mg 3-07 tablet by ity of tablet 00:00: mouth 2 [place] 00 (two) Medical times Branch daily. cephALEXin 2020-2020- No [id number] 500mg Take 1 Univers 500 mg 3-04 14-11 capsule by ity of capsule 00:00: 05:59 mouth [place] 00 :00 every 6 Medical (six) Branch hours for 3 days. cephALEXin 2020-2020- No [id number] 500mg Take 1 Univers 500 mg 3-04 14-11 capsule by ity of capsule 00:00: 05:59 mouth [place] 00 :00 every 6 Medical (six) Branch hours for 3 days. hydrOXYzine 2020-2020- No [id number] 10mg Take 1 Univers 10 mg 3-07 [...] days NaCl 0.9% No 500mL at 999 [facility] ers (NS) bolus 12-15 mL/hr, 500 it y of infusion 16:00: 15:26 mL, IV [place] 500 mL 00 :00 Piggyback, [facility] ONCE, 1 Branch dose, Fri12/15/20 at 1000, STAT HYDROmorpho Yes 4mg 4 mg, [facility] ne 12-15 Oral, BID, ity of (DILAUDID) 15:30: First dose [place] tablet 4 mg 00 (after Medica l last Branch modificati on) on Fri12/15/20 at 0930, Until Discontinu ed, Routine amLODIPine 2020- No [id number] 10mg Take 1 Univers 10 mg 12-15 tablet by ity of tablet 00:00: 00:00 mouth [place] 00 :00 daily. Medical Branch HYDROmorpho No 1mg 1 mg, [facility] ers ne 12-14 Oral, ity of (DILAUDID) 17:35: 15:18 Q6HPRN, [place] tablet 1 mg 30 :06 Starting Medi [facility] 12/14/20 Branch at 1135, Until Fri12/15/20 at 0918, Routine, Pain (scale 7-10) hydrOXYzine Yes 10mg 10 mg, [facility] ers (ATARAX) 12-14 Oral, BID, ity o f tablet 10 17:30: First dose [place] mg 00 on [facility] 12/14/20 at Branch 1130, Until Discontinu ed, Routine lisinopriL Yes 5mg 5 mg, Univer s (PRINIVIL,Z 12-14 Oral, ity of ESTRIL) 17:30: DAILY, [place] tablet 5 mg 00 First dose Me dical on [facility] 12/14/20 at 1130, Until Discontinu ed, Routine triamcinolo 2020- No [id number] Apply to [facility] 12-14 back, ity of acetonide 00:00: 00:00 armpits [place] 0.1 % cream 00 :00 and other Med ical affected Branch areas twice daily, please mix with clotrimazo le clotrimazol 2020- No [id number] Apply to Univers e 1 % 12-14 face/ears, ity of topical 00:00: 00:00 armpits, [place] cream 00 :00 pannus and Medical back/any Branch other rash twice a day fluocinonid 2020- No [id number] Apply to Univers e 0.05 % 12-14 scalp ity of solution 00:00: 00:00 twice a [place] 00 :00 day Medical Branch hydrOXYzine 2020- No [id number] 10mg Take 1 Univers 10 mg 12-14 [...] IV Push, ity of (PF)) 10:07: Q6HPRN, [place] injection 4 28 Starting Medi jose c mg Fri12/13/20 Branch at 0407, Until Discontinu ed, Routine, Nausea and Vomiting (N/V) ondansetron 2020- No 4mg 4 mg, Slow Univers (ZOFRAN 12-13- IV Push, ity of (PF)) 04:55: 05:44 ONCE, 1 [place] injection 4 00 :00 dose, [facility] ical mg 12/12/20 at Branch 2300, Routine traMADoL 2020- No 50mg 50 mg, Univer s (ULTRAM) 12-1303 Oral, ity of tablet 50 03:45: 03:34 ONCE, 1 [place] mg 00 :00 dose, [facility] 12/12/20 at Branch 2145, Routine insulin [...] 1 [place] mg 00 :00 dose, [facility] 12/12/20 at Branch 0215, Routine mirtazapine Yes 7.5mg 7.5 mg, Un toi (REMERON) 3 Oral, QHS, ity of tablet 7.5 03:00: First dose [place] mg [address] [facility] 12/11/20 at Branch 2100, Until Discontinu [...] Oral, ity of (TYLENOL 23:23: 13:49 Q6HPRN, [place] #3) 300-30 43 :08 Starting Medic al [...] ity of 1,000 mg in 19:00: 17:[facility] [place] NaCl 0.9% 00 :26 Q8H ABX, Medica l (NS) 50 mL First dose [facility] MINI-BAG on Fri12/11/20 at 1300, Until Discontinu [...] ed, Routine insulin Yes 5U 5 Units, [facility] s lispro 12-11 Subcutaneo ity of (human) 18:00: , TID [place] (HumaLOG 00 MEALS, Medical U-100) First dose Branch injection 5 on Fri Units 12/11/20 at 1200, Until Discontinu ed Polyethylen Yes 17g 17 g, [facility] rs e Glycol 12-11 Oral, ity of 3350 17:47: [id number], [place] (MIRALAX) 05 Starting Medica l powder 17 g 12/11/20 Br anch at 1147, Until Discontinu ed, Routine, Constipati on acetaminoph Yes 650mg 650 mg, Un toi en 12-11 Oral, ity of (TYLENOL) 16:51: Q6HPRN, [place] tablet 650 28 Starting Medic al mg [...]
Duration of therapy: 72 hours sennosides- Yes [id number] 1{tbl} Take 1 [facility] docusate 2- tablet by ity of sodium 00:00: mouth 2 [place] 8.6-50 mg 00 (two) Medical per tablet times Branch daily. hydrocortis Yes [id number] Apply to [facility] one 2.5 % 11-21 affected ity of cream 00:00: area(s) 2 [place] 00 (two) Medical times Branch daily. blood sugar Yes [id number] Use to Univers diagnostic 11-21 check ity of (FREESTYLE 00:00: blood [place] LITE 00 glucose Medical STRIPS) 4-5 times Branch strip daily. Polyethylen Yes [id number] 17g Take 1 Univers e Glycol 11-21 Packet by ity of 3350 17 00:00: mouth [place] gram powder 00 every 24 Medi jose c (twenty-fo Branch ur) hours as needed for Constipati on. sennosides- 2020- Yes [id number] 1{tbl} Take 1 Univers docusate 2-09 tablet by ity of sodium 00:00: mouth 2 [place] 8.6-50 mg 00 (two) Medical per tablet times Branch daily. hydrocortis 2020- Yes [id number] Apply to Univers one 2.5 % 2-09 affected ity of cream 00:00: area(s) 2 [place] 00 (two) Medical times Branch daily. blood sugar 2020- Yes [id number] Use to [facility] diagnostic 11-21 check ity of (FREESTYLE 00:00: blood [place] LITE 00 glucose Medical STRIPS) 4-5 times Branch strip daily. Polyethylen 2020- Yes [id number] 17g Take 1 Univers e Glycol 2-09 Packet by ity of 3350 17 00:00: mouth [place] gram powder 00 every 24 Medi jose c (twenty-fo Branch ur) hours as needed for Constipati on. sennosides- Yes [id number] 1{tbl} Take 1 Univers docusate 2-09 tablet by ity of sodium 00:00: mouth 2 [place] 8.6-50 mg 00 (two) Medical per tablet times Branch daily. hydrocortis 2020- Yes [id number] Apply to Univers one 2.5 % 2-09 affected ity of cream 00:00: area(s) 2 [place] 00 (two) Medical times Branch daily. blood sugar 2020- Yes [id number] Use to [facility] diagnostic 11-21 check ity of (FREESTYLE 00:00: blood [place] LITE 00 glucose Medical STRIPS) 4-5 times Branch strip daily. Polyethylen 2020-0 Yes [id number] 17g Take 1 Univers e Glycol 2-09 Packet by ity of 3350 17 00:00: mouth [place] gram powder 00 every 24 Medi jose c (twenty-fo Branch ur) hours as needed for Constipati on. sennosides- 2020- Yes [id number] 1{tbl} Take 1 Univers docusate 2-09 tablet by ity of sodium 00:00: mouth 2 [place] 8.6-50 mg 00 (two) Medical per tablet times Branch daily. hydrocortis Yes [id number] Apply to [facility] one 2.5 % 11-21 affected ity of cream 00:00: area(s) 2 [place] 00 (two) Medical times Branch daily. blood sugar Yes [id number] Use to [facility] diagnostic 11-21 check ity of (FREESTYLE 00:00: blood [place] LITE 00 glucose Medical STRIPS) 4-5 times Branch strip daily. Polyethylen Yes [id number] 17g Take 1 Univers e Glycol 11-21 Packet by ity of 3350 17 00:00: mouth [place] gram powder 00 every 24 Medi jose c (twenty-fo Branch ur) hours as needed for Constipati on. Insulin 2020- No [id number] 15U inject 15 Univers Glargine 11-21 Units ity of (LANTUS 00:00: 05:59 under the [place] SOLOSTAR 00 :00 skin every Medic al U-100 morning Branch INSULIN) for 30 100 unit/mL days. (3 mL) injection venlafaxine 2020- No [id number] 150mg Take 1 Univers XR 150 mg 11-21 capsule by ity of 24 hr 00:00: 05:59 mouth 3 [place] capsule 00 :00 (three) Medical times Branch daily for 30 days. Insulin 2020- No [id number] 15U inject 15 Univers Glargine 11-21 Units ity of (LANTUS 00:00: 05:59 under the [employer] SOLOSTAR 00 :00 skin every Medic al U-100 morning Branch INSULIN) for 30 100 unit/mL days. (3 mL) injection venlafaxine 2020- No [id number] 150mg Take 1 Univers XR 150 mg 11-21 capsule by ity of 24 hr 00:00: 05:59 mouth 3 [place] capsule 00 :00 (three) Medical times Branch daily for 30 days. triamcinolo 2020- No [id number] Apply to [facility] ne 11-21-04 area(s) 2 ity of acetonide 00:00: 00:00 (two) [place] 0.1 % cream 00 :00 times Medical daily. Branch cephALEXin 2020- No [id number] 1000mg Take 2 Univers 500 mg 11-21 capsules ity of capsule 00:00: 00:00 by mouth 3 [place] 00 :00 (three) Medical times Branch daily. doxycycline 2020- No [id number] 100mg Take 1 Univers hyclate 100 11-21 capsule by i ty of mg capsule 00:00: 00:00 mouth [place] 00 :00 every 12 Medical (twelve) Branch hours. lactobacill 2020- No [id number] 1{tbl} Take 1 Univers us 11-21 tablet by ity of acidophilus 00:00: 00:00 mouth 2 [place] 25 million 00 :00 (two) Medical cell -100 times Branch mg captab daily. bisacodyL 2020- No [id number] 10mg Insert 1 Univers 10 mg 11-21 Suppositor ity of suppository 00:00: 00:00 y into [place] 00 :00 rectum at Medical bedtime as Branch needed for Constipati on. ALPRAZolam 2020- No [id number] .25mg Take 1 Univers (XANAX) 11-21 tablet by ity of 0.25 mg 00:00: 00:00 mouth 2 [place] tablet 00 :00 (two) Medical times Branch daily. hydrOXYzine 2020- No [id number] 20mg Take 2 Univers 10 mg 11-21 [...] 3 ity of 6 mg 01:13: (three) [place] capsule 36 times Medical daily. Branch Insulin 2019-10 Yes 15U inject 15 Unive rs Glargine 1-12 Units ity of (LANTUS 01:13: under the [place] SOLOSTAR) 36 skin. Medical 100 unit/mL Branch (3 mL) InPn INSULIN 2019-10 Yes 5U inject 5 Univer s ASPART 1-12 Units ity of (NOVOLOG 01:13: under the [facility] [facility] FLEXPEN SC) 36 skin. Medical [...] Units ity of (LANTUS 01:13: under the [place] SOLOSTAR) 36 skin. Medical 100 unit/mL Branch [...] Units ity of (LANTUS 01:13: under the [place] SOLOSTAR) 36 skin. Medical 100 unit/mL Branch [...] Units ity of (LANTUS 01:13: under the [place] SOLOSTAR) 36 skin. Medical 100 unit/mL Branch (3 mL) InPn INSULIN 2019-10 Yes 5U inject 5 Univer s ASPART 1-12 Units ity of (NOVOLOG 01:13: under the [facility] [facility] FLEXPEN SC) 36 skin. Medical [...] Units ity of (LANTUS 01:13: under the [place] SOLOSTAR) 36 skin. Medical 100 unit/mL Branch (3 mL) InPn INSULIN 2019-10 Yes 5U inject 5 Univer s ASPART 1-12 Units ity of (NOVOLOG 01:13: under the [facility] s FLEXPEN SC) 36 skin. Medical Branch ALPRAZolam 2019-10 Yes .25mg Take 0.25 U nivers (XANAX) 1-12 mg by ity of 0.25 mg 01:13: mouth 2 [place] tablet 36 (two) Medical times Branch daily. HYDROXYZINE 2019-10 2020- No 25mg Take 25 mg Univers PAMOATE 1-11 11-11 by mouth ity of ORAL 20:04: 00:00 daily. [place] 34 :00 Medical Branch hydrocortis 2019-10 Yes [id number] Apply to Univers one 2.5 % 1-11 affected ity of cream 00:00: area(s) 2 [place] 00 (two) Medical times Branch daily. hydrOXYzine 2019- Yes [id number] 20mg Take 2 Univers 10 mg 1-11 tablets by ity of tablet 00:00: mouth [place] 00 every 8 Medical (eight) Branch hours as needed for Itching or Anxiety. Polyethylen 2019- Yes [id number] 17g Take 1 Univers e Glycol 1-11 Packet by ity of 3350 17 00:00: mouth [place] gram powder 00 every 24 Medi jose c (twenty-fo Branch ur) hours as needed for Constipati on. hydrocortis 2019-10 Yes [id number] Apply to Univers one 2.5 % 1-11 affected ity of cream 00:00: area(s) 2 [place] 00 (two) Medical times Branch daily. hydrOXYzine 2019- Yes [id number] 20mg Take 2 Univers 10 mg 1-11 tablets by ity of tablet 00:00: mouth [place] 00 every 8 Medical (eight) Branch hours as needed for Itching or Anxiety. Polyethylen 2019- Yes [id number] 17g Take 1 Univers e Glycol 1-11 Packet by ity of 3350 17 00:00: mouth [place] gram powder 00 every 24 Medi jose c (twenty-fo Branch ur) hours as needed for Constipati on. hydrocortis 2019- Yes [id number] Apply to Univers one 2.5 % 1-11 affected ity of cream 00:00: area(s) 2 [place] (two) Medical times Branch daily. hydrOXYzine 2019- Yes [id number] 20mg Take 2 Univers 10 mg 1-11 tablets by ity of tablet 00:00: mouth [place] 00 every 8 Medical (eight) Branch hours as needed for Itching or Anxiety. Polyethylen 2019- Yes [id number] 17g Take 1 Univers e Glycol 1-11 Packet by ity of 3350 17 00:00: mouth [place] gram powder 00 every 24 Medi jose c (twenty-fo Branch ur) hours as needed for Constipati on. hydrocortis 2019-10 Yes [id number] Apply to Univers one 2.5 % 1-11 affected ity of cream 00:00: area(s) 2 [place] (two) Medical times Branch daily. hydrOXYzine 2019-10 Yes [id number] 20mg Take 2 Univers 10 mg 1-11 tablets by ity of tablet 00:00: mouth [place] 00 every 8 Medical (eight) Branch hours as needed for Itching or Anxiety. Polyethylen 2019-10 Yes [id number] 17g Take 1 Univers e Glycol 1-11 Packet by ity of 3350 17 00:00: mouth [place] gram powder 00 every 24 Medi jose c (twenty-fo Branch ur) hours as needed for Constipati on. hydrocortis 2019-10 Yes [id number] Apply to Univers one 2.5 % 1-11 affected ity of cream 00:00: area(s) 2 [place] (two) Medical times Branch daily. hydrOXYzine 2019-10 Yes [id number] 20mg Take 2 Univers 10 mg 1-11 tablets by ity of tablet 00:00: mouth [place] 00 every 8 Medical (eight) Branch hours as needed for Itching or Anxiety. Polyethylen 2019- Yes [id number] 17g Take 1 Univers e Glycol 1-11 Packet by ity of 3350 17 00:00: mouth [place] gram powder 00 every 24 Medi jose c (twenty-fo Branch ur) hours as needed for Constipati on. hydrocortis 2019-10 Yes [id number] Apply to Univers one 2.5 % 1-11 affected ity of cream 00:00: area(s) 2 [place] (two) Medical times Branch daily. hydrOXYzine 2019-10 Yes [id number] 20mg Take 2 Univers 10 mg 1-11 tablets by ity of tablet 00:00: mouth [place] 00 every 8 Medical (eight) Branch hours as needed for Itching or Anxiety. Polyethylen 2019- Yes [id number] 17g Take 1 Univers e Glycol 1-11 Packet by ity of 3350 17 00:00: mouth [place] gram powder 00 every 24 Medi jose c (twenty-fo Branch ur) hours as needed for Constipati on. hydrocortis 2019- Yes [id number] Apply to Univers one 2.5 % 1-11 affected ity of cream 00:00: area(s) 2 [place] 00 (two) Medical times Branch daily. hydrOXYzine 2019-10 Yes [id number] 20mg Take 2 Univers 10 mg 1-11 tablets by ity of tablet 00:00: mouth [place] 00 every 8 Medical (eight) Branch hours as needed for Itching or Anxiety. Polyethylen 2019-10 Yes [id number] 17g Take 1 Univers e Glycol 1-11 Packet by ity of 3350 17 00:00: mouth [place] gram powder 00 every 24 Medi jose c (twenty-fo Branch ur) hours as needed for Constipati on. triamcinolo 2019- 2020- No [id number] Apply to [facility] 10-23 area(s) 2 ity of acetonide 00:00: 05:59 (two) [place] 0.1 % cream 00 :00 times Medical daily for Branch 14 days. triamcinolo 2019- 2020- No [id number] Apply to [facility] 10-23 area(s) 2 ity of acetonide 00:00: 05:59 (two) [place] 0.1 % cream 00 :00 times Medical daily for Branch 14 days. triamcinolo 2019- 2020- No [id number] Apply to [facility] 10-23 area(s) 2 ity of acetonide 00:00: 05:59 (two) [place] 0.1 % cream 00 :00 times Medical daily for Branch 14 days. KCL 2019- 2020- No 40meq 40 mEq, Univers (KLOR-CON - 11-10 Oral, ONCE ity of M20) tablet 16:15: 16:23 NOW, 1 [place] 40 mEq 00 :00 dose, [facility] 08/22/20 Branch at 1015, Routine HYDROmorpho 2019-10 Yes 1mg 1 mg, Unive rs ne 1-10 Oral, ity of (DILAUDID) 15:07: Q6HPRN, [place] tablet 1 mg 53 Starting [facility] 08/22/20 at 0907, Until Discontinu ed, Routine, Pain (scale 7-10) hydrocortis 2019-10 Yes Topical Uni vers one 2.5 % 1-10 (Apply To ity o f cream 02:00: Affected [place] 00 Areas), Medical BID, First Branch dose on [facility] 08/21/20 at 2000, Until Discontinu ed, Routine triamcinolo 2019-10 Yes Topical, Un toi ne 1-10 BID, First ity of acetonide 02:00: dose on [place] (TRIDERM) 00 [facility] Medical 0.1 % cream 08/21/20 at Br anch 2000, Until Discontinu ed, Routine hydrOXYzine 2019-10 Yes 20mg 20 mg, Univ ers (ATARAX) 09 Oral, ity of tablet 20 17:39: Q8HPRN, [place] mg 12 Starting Medical [facility] 08/21/20 at 1139, Until Discontinu ed, Routine, Itching, Anxiety sennosides- 2019-10 Yes 1{tbl} 1 tablet, Univers docusate 10-21 Oral, ity of sodium 15:00: DAILY, [place] (SENOKOT-S) 00 First dose Me dical 8.6-50 mg on [facility] per tablet 08/21/20 at 1 tablet 0900, Until Discontinu ed, Routine hydrocortis 2019-10 2020- No Topical Un toi one 1 % 10-21 (Apply To ity of cream 15:00: 22:54 Affected [place] 00 :48 Areas), Medical DAILY, Branch First dose on [facility] 08/21/20 at 0900, Until Discontinu ed, Routine venlafaxine 2019-10 Yes 150mg 150 mg, Un toi XR (EFFEXOR 09 Oral, TID, it y of XR) 24 hr 14:00: First dose [place] capsule 150 00 on [facility] Medica l mg 08/21/20 at Branch [...] 25 59 :43 Starting Medica l mg [facility] 08/21/20 at 0656, Until Fri08/21/20 at 1139, Routine, Itching, Mild Rash, Congestion /Allergies , alternate with hydroxyzin e hydrOXYzine 2019-10 No 10mg 10 mg, Uni vers (ATARAX) 10-21 Oral, ity of tablet 10 10:20: 12:57 Q6HPRN, [place] mg 22 :12 Starting Medical [facility] 08/21/20 at 0420, Until Fri08/21/20 at 0657, [...] 1 ity o f 09:30: 09:14 dose, [facility] 00 :00 08/21/20 at [facility] 0330, Branch Routine Polyethylen 2019-10 Yes 17g 17 g, Unive rs e Glycol 10-21 Oral, ity of 3350 08:29: [id number], [place] (MIRALAX) 09 Starting Medica l powder 17 g [facility] Orthopaedics & Sports Medicine 08/21/20 at 0229, Until Discontinu ed, Routine, Constipati on lanolin 2019-10 Yes Topical, Univer s alcohol-mo- 10-21 PRN, ity of w.pet-ceres 08:26: [place] (EUCERIN[place] 30 [facility] Medical cream 08/21/20 at Branch 0226, Until [...] of 40 mg 08:22: 00:00 daily with [place] capsule 59 :00 breakfast. Medica l Branch [...] 1-3) sotalol 2019-10 2020- No [facility] (BETAPACE) 10-21 mouth ity of 240 mg 07:43: 00:00 every 12 [place] tablet 30 :00 (twelve) Medical hours. Branch blood sugar Yes Use to [facility] ers diagnostic 4-25 check ity of (FREESTYLE 00:00: blood [place] LITE 00 glucose Medical STRIPS) 4-5 times Branch strip daily. blood sugar Yes Use to [facility] ers diagnostic 4-25 check ity of (FREESTYLE 00:00: blood [place] LITE 00 glucose Medical STRIPS) 4-5 times Branch strip daily. blood sugar Yes Use to [facility] ers diagnostic 4-25 check ity of (FREESTYLE 00:00: blood [place] LITE 00 glucose Medical STRIPS) 4-5 times Branch strip daily. blood sugar Yes Use to [facility] ers diagnostic 4-25 check ity of (FREESTYLE [...] 13:00:00 148 mm[Hg] Univer sity of pressure [place] [facility] Diastolic blood 2021-08-22 13:00:00 84 mm[Hg] Unive rsity of pressure [place] [facility] Heart rate 2021-08-22 13:00:00 103 /min Universi ty [facility] Respiratory rate 2021-08-22 13:00:00 18 /min Univ ersity of [facility] Branch Oxygen saturation in 2021-08-22 13:00:00 95 /min University of Arterial blood by [facility] Pulse oximetry Branch Body temperature 2021-08-22 12:22:00 36.72 [place] Univ ersity of [facility] Branch Systolic blood 2020-12-17 18:35:00 139 mm[Hg] Univer sity of pressure [place] [facility] Diastolic blood 2020-12-17 18:35:00 87 mm[Hg] Unive rsity of pressure [place] [facility] Heart rate 2020-12-17 18:35:00 110 /min Universi ty [facility] Body temperature 2020-12-17 18:35:00 37.72 [place] [facility] ersity of [facility] Branch Respiratory rate 2020-12-17 18:35:00 18 /min Univ ersity of [facility] Branch Oxygen saturation in 2020-12-17 18:35:00 93 /min University of Arterial blood by [facility] Pulse oximetry Branch Body height 2020-12-12 08:21:00 180.3 cm Universi ty of [place] [facility] Body weight 2020-12-12 08:21:00 103.42 kg Universi ty of [place] [facility] BMI 2020-12-12 08:21:00 31.80 kg/m2 Universi ty of [place] [facility] Systolic blood 2020-12-17 18:35:00 139 mm[Hg] Univer sity of pressure [place] [facility] Diastolic blood 2020-12-17 18:35:00 87 mm[Hg] Unive rsity of pressure [place] [facility] Heart rate 2020-12-17 18:35:00 110 /min Universi ty of [place] [facility] Body temperature 2020-12-17 18:35:00 37.72 [place] Univ ersity of [place] [facility] Respiratory rate 2020-12-17 18:35:00 18 /min Univ ersity of [place] [facility] Oxygen saturation in 2020-12-17 18:35:00 93 /min University of Arterial blood by [employer] [facility] Pulse oximetry Branch Body height 2020-12-12 08:21:00 180.3 cm Universi ty of [place] [facility] Body weight 2020-12-12 08:21:00 103.42 kg Universi ty of [place] [facility] BMI 2020-12-12 08:21:00 31.80 kg/m2 Universi ty of [place] [facility] Systolic blood 2020-08-23 19:27:00 140 mm[Hg] Univer sity of pressure [place] [facility] Diastolic blood 2020-08-23 19:27:00 79 mm[Hg] Unive rsity of pressure [place] [facility] Heart rate 2020-08-23 19:27:00 99 /min Universi ty of [place] [facility] Body temperature 2020-08-23 19:27:00 36 [place] Univ ersity of [place] [facility] Respiratory rate 2020-08-23 19:27:00 18 /min Univ ersity of [place] [facility] Oxygen saturation in 2020-08-23 19:27:00 93 /min University of Arterial blood by [employer] [facility] Pulse oximetry Branch Body weight 2020-08-21 07:20:00 104.962 kg Universi ty of [place] [facility] BMI 2020-08-21 07:20:00 32.27 kg/m2 Universi ty of [place] [facility] Systolic blood 2020-08-23 19:27:00 140 mm[Hg] Univer sity of pressure [place] [facility] Diastolic blood 2020-08-23 19:27:00 79 mm[Hg] [facility] of pressure [facility] Heart rate 2020-08-23 19:27:00 99 /min [facility] Body temperature 2020-08-23 19:27:00 36 [place] [facility] rate 2020-08-23 19:27:00 18 /min [facility] Oxygen saturation in 2020-08-23 19:27:00 93 /min [facility] Arterial blood by [facility] Pulse oximetry [place] Body weight 2020-08-21 07:20:00 104.962 kg [facility] BMI 2020-08-21 07:20:00 32.27 kg/m2 [facility] Procedures Procedure Date / Time Performing Clinician Source Performed POCT GLUCOSE (AUTOMATED) 2020-12-17 15:42:00 Harrison, Premal G Uni [facility] BASIC METABOLIC PANEL 2020-12-17 10:45:00 Paul Bean [facility] (NA, K, CL, CO2, GLUCOSE, [place] Medica l Branch BUN, CREATININE, CA) CBC WITH DIFF 2020-12-17 10:45:00 Paul Bean [facility] POCT GLUCOSE (AUTOMATED) 2020-12-17 02:36:00 [facility] XR TIBIA FIBULA 2 VW LEFT 2020-12-16 23:38:00 Paul Bean [facility] POCT GLUCOSE (AUTOMATED) 2020-12-16 23:20:00 Harrison, [facility]al [facility] GLUCOSE (AUTOMATED) 2020-12-16 20:10:00 Harrison, Premal [facility] POCT GLUCOSE (AUTOMATED) 2020-12-16 14:43:00 Harrison, Premal [facility] BASIC METABOLIC PANEL 2020-12-16 13:51:00 Paul Bean [facility] (NA, K, CL, CO2, GLUCOSE, [place] [facility] BUN, CREATININE, CA) CBC WITH DIFF 2020-12-16 13:51:00 Paul Bean [facility] POCT GLUCOSE (AUTOMATED) 2020-12-16 04:00:00 Harrison, Premal G Uni versity of [facility] POCT GLUCOSE (AUTOMATED) 2020-12-16 00:14:00 Harrison, Premal G Uni versity of [facility] CT CHEST PULMONARY 2020-12-15 22:29:38 [facility] ANGIOGRAM [facility] POCT GLUCOSE (AUTOMATED) 2020-12-15 19:26:00 Harrison, Premal G Uni versity of [facility] POCT GLUCOSE (AUTOMATED) 2020-12-15 15:13:00 Hunter, Premal [facility] ECG ROUTINE & RHYTHM 2020-12-15 14:25:27 Cailin Romo [facility] STRIP [facility] Branch MAGNESIUM 2020-12-15 12:01:00 Paul Bean Sivakumar [facility] BASIC METABOLIC PANEL 2020-12-15 12:01:00 Paul Bean [facility] (NA, K, CL, CO2, GLUCOSE, [place] [facility] BUN, CREATININE, CA) CBC WITH DIFF 2020-12-15 12:01:00 Paul Bean [facility] POCT GLUCOSE (AUTOMATED) 2020-12-15 03:57:00 Harrison, Premal G Uni versity of [facility] POCT GLUCOSE (AUTOMATED) 2020-12-14 23:31:00 Harrison, Premal G Uni versity of [facility] POCT GLUCOSE (AUTOMATED) 2020-12-14 19:08:00 Harrison, Premal G Uni versity of [facility] POCT GLUCOSE (AUTOMATED) 2020-12-14 15:11:00 Harrison, Premal G Uni versity of [facility] POCT GLUCOSE (AUTOMATED) 2020-12-14 02:36:00 Harrison, Premal G Uni versity of [facility] POCT GLUCOSE (AUTOMATED) 2020-12-13 23:32:00 Harrison, Premal G Uni versity of [facility] POCT GLUCOSE (AUTOMATED) 2020-12-13 18:08:00 Harrison, Premal G Uni versity of [facility] BASIC METABOLIC PANEL 2020-12-13 15:39:00 Paul Bean [facility] (NA, K, CL, CO2, GLUCOSE, [place] [facility] BUN, CREATININE, CA) CBC WITH DIFF 2020-12-13 15:39:00 Paul Bean [facility] POCT GLUCOSE (AUTOMATED) 2020-12-13 14:06:00 Harrison, Premal G Uni versity of [facility] POCT GLUCOSE (AUTOMATED) 2020-12-13 03:07:00 Harrison, Premal G Uni versity of [facility] POCT GLUCOSE (AUTOMATED) 2020-12-12 23:52:00 Harrison, Premal G Uni versity of [facility] POCT GLUCOSE (AUTOMATED) 2020-12-12 20:28:00 Harrison, Premal G Uni versity of [facility] POCT GLUCOSE (AUTOMATED) 2020-12-12 19:14:00 Harrison, Premal G Uni versity of [facility] POCT GLUCOSE (AUTOMATED) 2020-12-12 14:33:00 Harrison, Premal G Uni versity of [facility] MAGNESIUM 2020-12-12 08:58:00 Paul Bean [facility] BASIC METABOLIC PANEL 2020-12-12 08:58:00 Paul Bean [facility] (NA, K, CL, CO2, GLUCOSE, [place] [facility] BUN, CREATININE, CA) CBC WITH DIFF 2020-12-12 08:58:00 Paul Bean [facility] US ABDOMEN LIMITED 2020-12-12 06:32:26 Paul Bean [facility] POCT GLUCOSE (AUTOMATED) 2020-12-12 03:40:00 Harrison, Premal G Uni versity of [facility] POCT GLUCOSE (AUTOMATED) 2020-12-12 00:06:00 Harrison, Premal G Uni versity [facility] XR HIPS 3 VW LEFT 2020-12-11 20:20:00 Paul Bean [facility] HB ECG ROUTINE & RHYTHM 2020-12-11 20:04:06 [facility] STRIP [facility] VITAMIN B6, PLASMA 2020-12-11 19:17:00 Vikas [facility] POCT GLUCOSE (AUTOMATED) 2020-12-11 19:06:00 Rene Harrison [facility] CREATINE KINASE 2020-12-11 18:22:00 Parvez Clarisse [facility] VITAMIN B12, LEVEL 2020-12-11 18:22:00 Vikas [facility] FOLATE 2020-12-11 18:22:00 Vikas [facility] THYROID STIMULATING 2020-12-11 18:22:00 [facility] H[facility] PROCALCITONIN 2020-12-11 18:22:00 Vikas [facility] VITAMIN B1 (THIAMINE), 2020-12-11 18:22:[address] [facility] WHOLE BLOOD [facility] CT HEAD WO CONTRAST 2020-12-11 14:07:35 Sweetie Stout [facility] URINALYSIS 2020-12-11 13:44:00 Singer Paco [facility] URINE CULTURE 2020-12-11 13:44:00 Singer [facility] COVID-19 (ID NOW RAPID 2020-12-11 12:31:00 Paco Lacey [facility] TESTING) [facility] LAB ONLY COVID 2020-12-11 12:31:00 Paco Lacey [facility] XR CHEST 1 VW 2020-12-11 12:07:24 Singer [facility] BLOOD CULTURE SCREEN 2020-12-11 12:02:00 Paco Lacey [facility] MAGNESIUM 2020-12-11 12:02:00 [facility] 2020-12-11 12:02:00 Vikas [facility] COMP. METABOLIC PANEL 2020-12-11 12:02:00 Singer Paco [facility] ([id number]) Medical Branch CBC WITH DIFF 2020-12-11 12:02:00 Singer [facility] LACTIC ACID WHOLE BLOOD 2020-12-11 12:02:00 Singer Paco [facility] BLOOD CULTURE SCREEN 2020-12-11 11:42:00 Paco Lacey [facility] EMERGENCY SERVICES 2020-12-11 06:01:00 Doctor Unassnadya, [facility] AGREEMENTS AND [place] [facility] AUTHORIZATIONS HOSPITAL ADMISSION 2020-12-11 06:01:00 Doctor Tabitha [facility] Name Medical [place] HOME HEALTH - OTHER 2020-11-11 06:01:00 Doctor Tabitha [facility] Tropic Medical [place] [facility] - OTHER 2020-10-30 06:01:00 Doctor Tabitha [facility] Name Medical [place] EXTERNAL PROVIDER RECORDS 2020-09-01 06:01:00 Doctor Tabitha [facility] Name Medical [place] POCT GLUCOSE (AUTOMATED) 2020-08-23 18:09:00 Kelly [place] [facility] POCT GLUCOSE (AUTOMATED) 2020-08-23 14:14:00 Kelly [place] [facility] MAGNESIUM 2020-08-23 11:18:00 [place] [facility] BASIC METABOLIC PANEL 2020-08-23 11:18:00 [place] [facility] (NA, K, CL, CO2, GLUCOSE, Medica l Branch BUN, CREATININE, CA) CBC WITH DIFF 2020-08-23 11:18:00 [place] [facility] POCT GLUCOSE (AUTOMATED) 2020-08-23 10:21:00 Kelly [place] [facility] POCT GLUCOSE (AUTOMATED) 2020-08-23 05:55:00 Kelly [place] [facility] POCT GLUCOSE (AUTOMATED) 2020-08-23 03:00:00 Kelly [place] [facility] POCT GLUCOSE (AUTOMATED) 2020-08-22 23:38:00 Stefania Kelly Elias versity [facility] POCT GLUCOSE (AUTOMATED) 2020-08-22 19:04:00 [facility] ([facility]OMATED) 2020-08-22 13:49:00 Bety [place] Elias versity [facility] MAGNESIUM 2020-08-22 10:10:00 [facility] FUNCTION PANEL 2020-08-22 10:10:00 Aguila Melchor [facility] ([id number]) (ALB,T.PRO,BI[facility] Branch T,BU/BC,ALT,AST,ALK PHOS) BASIC METABOLIC PANEL 2020-08-22 10:10:00 [place], [facility] (NA, K, CL, CO2, GLUCOSE, Medica l Branch BUN, CREATININE, CA) LIPID PANEL ([id number])(TOTAL 2020-08-22 10:10:00 [place], [facility] TRIGLYCERIDES, HDL) CBC WITH DIFF 2020-08-22 10:10:00 [facility] POCT GLUCOSE (AUTOMATED) 2020-08-22 10:10:00 Stefania Kelly Elias [facility] POCT GLUCOSE (AUTOMATED) 2020-08-22 07:13:00 Stefania Kelly Elias [facility] POCT GLUCOSE (AUTOMATED) 2020-08-22 02:24:00 Stefania Kelly Elias [facility] POCT GLUCOSE (AUTOMATED) 2020-08-21 23:40:00 Stefania Kelly Elias versity [facility] POCT GLUCOSE (AUTOMATED) 2020-08-21 18:10:00 Stefania Kelly Elias [facility] POCT GLUCOSE (AUTOMATED) 2020-08-21 13:39:00 Ste[facility]ania [facility] ETHANOL 2020-08-21 12:35:00 Jos Quiroz [facility] ACTIVATED PARTIAL 2020-08-21 12:35:00 Stefania [facility] GALV ONLY - SYPHILIS 2020-08-21 12:35:00 Stefania [facility] IGG/IGM [facility] LACTATE DEHYDROGENASE 2020-08-21 10:09:00 [place], [facility] GALV/CLC ONLY - URINE 2020-08-21 10:09:00 Jos Quiroz [facility] DRUG (IMMUNOASSAY) - 4 ER Medica l Branch PANEL URINALYSIS 2020-08-21 10:09:00 Ramya, [facility] URINE CULTURE 2020-08-21 10:09:00 [place], [facility] PROCALCITONIN 2020-08-21 10:09:00 Ramya, [facility] POCT GLUCOSE (AUTOMATED) 2020-08-21 09:41:00 Stefania [facility] PROTHROMBIN TIME / INR 2020-08-21 08:32:00 Ramya, [facility] ACTIVATED PARTIAL 2020-08-21 08:32:00 Ramya, [facility] C-REACTIVE PROTEIN 2020-08-21 08:31:00 [place], [facility] HEPATIC FUNCTION PANEL 2020-08-21 08:31:00 [place], [facility] ([id number]) (ALB,T.PRO,BILI [facility] T,BU/BC,ALT,AST,ALK PHOS) BASIC METABOLIC PANEL 2020-08-21 08:31:00 [place], [facility] (NA, K, CL, CO2, [facility]UCO[facility] BUN, CREATININE, CA) SEDIMENTATION RATE 2020-08-21 08:31:00 [place], [facility] CBC WITH DIFF 2020-08-21 08:31:00 Ramya, [facility] GLYCOSYLATED HEMOGLOBIN 2020-08-21 08:31:00 [place], [facility] (A1C) [facility] HIV 1/2 AG-AB WITH REFLEX 2020-08-21 08:31:00 [place], Sarah [facility] [place] [facility] (ID NOW RAPID 2020-08-21 08:20:00 [facility]aily [facility]) Medical Branch LAB ONLY COVID 2020-08-21 08:20:00 Haily Bui [facility] Encounters Start End Encounter Admission Attending Care Care Encounter Source Date/Time Date/Time Type Type Clinicians Facility Department ID 2020-08-21 Inpatient U STEFANIA [facility] [id number] Univers 01:07:00 KELLY cantu [facility] 2021-08-22 2021-08-[address] [facility] [id number] Univers 06:21:00 08:02:00 SWEETIE cantu [facility] 2021-08-22 2021-08-[address] [facility] [id number] Univers 06:21:00 08:02:00 Sweetie LOTT [id number] i ty of [place] 4.2.7.2.686 [facility] [id number] [facility] 084 Branch 2021-08-09 2021-08-09 Outpatient ZAKI, [facility] [id number] [facility] 10:27:03 10:27:03 ADRIANA lopez of Medicin e 2020-12-28 2020-12-28 Telephone [facility] 1.2.840.114 [id number] 00:00:00 00:00:00 Calvin H PRIMARY [id number] CARE 4.2.7.2.686 PAVILLION [id number] 2020-12-28 2020-12-28 Telephone [facility] 1.2.840.114 [id number] Univers 00:00:00 00:00:00 Calvin H PRIMARY [id number] it y of CARE 4.2.7.2.686 [facility] [id number] Ia dical 220 Branch 2020-12-19 2020-12-19 Transition Tuan Peters 1.2.840.114 [id number] 00:00:00 00:00:00 of Care Ruchi Braswell [id number] [place] 4.2.7.2.686 [id number] 2020-12-19 2020-12-19 Transition Tuan Peters 1.2.840.114 [id number] Univers 00:00:00 00:00:00 of Care Ruchi Braswell [id number] it y of [place] 4.2.7.2.686 Jennifer pelletier [id number] [facility] 403 Branch 2020-12-11 2020-12-17 [facility] Paco Lacey Ayleen 1.2.840.1 [id number] 05:11:00 16:00:00 Encounter Rene Harrison Monique [id number] [facility] 4.2.7.2.686 [id number] [facility] 2020-12-11 2020-12-17 [facility] Paco Lacey 1.2.840.1 [id number] [facility] 05:11:00 16:00:00 Encounter Rene Harrison [place] [id number] ity [facility] 4.2.7.2.686 [place] [id number] [place] [id number] [place] 2020-12-11 2020-12-[address] [facility] ERT [id number] Univers 05:11:00 05:11:00 PACO cantu [facility] 2020-11-16 2020-11-[address] [facility] ERT [id number] Univers 09:31:00 09:31:00 PACO cantu [facility] 2020-11-11 2020-11-11 Orders Doctor CUI 1.2.840.114 [id number] 00:00:00 00:00:00 Only UnassignedMONIQUE 350.1.13.10 [facility] 4.2.7.2.686 [id number] 2020-11-11 2020-11-11 Orders Doctor CUI 1.2.840.114 [id number] Univers 00:00:00 00:00:00 Only UnassignedMONIQUE 350.1.13.10 ity of [facility] 4.2.7.2.686 Jeff as [id number] [address] 2020-11-07 2020-11-07 [facility]phone [facility] [id number] 00:00:00 00:00:00 Sendsiobhan Lott 350.1.13.10 [place] 4.2.7.2.686 Professio [id number] [address] 2020-11-07 2020-11-07 Telephone [facility] [id number] Univers 00:00:00 00:00:00 Sendil Danitza Lott 350.1.13.10 ity of [place] 4[place]2.7.2.686 [place] Profess[place] [id number] [address] 2020-10-30 2020-10-30 Orders Doctor CUI 1.2.840.114 [id number] 00:00:00 00:00:00 Only Unassigned, MONIQUE 350.1.13.10 [facility] 4.2.7.2.686 [id number] [facility] 2020-10-30 2020-10-30 Orders Doctor BASILIA 1.2.840.114 [id number] Univers 00:00:00 00:00:00 Only Unassigned, MONIQUE 350.1.13.10 ity of [facility] 4.2.7.2.686 Jeff as [id number] [address] 2020-09-26 2020-09-26 Telephone STONE Mccabe 1.2.840.114 [id number] 00:00:00 00:00:00 [facility] 350.1.13.10 CLINICS 4.2.7.2.686 [id number] 2020-09-26 2020-09-26 Telephone STONE Mccabe 1.2.840.114 [id number] Univers 00:00:00 00:00:00 [facility] 350.1.13.10 i ty of CLINICS 4[place]7.2.686 [place] [id number] [address] 2020-09-01 2020-09-01 Orders Doctor BASILIA 1.2.840.114 [id number] 00:00:00 00:00:00 Only Unassigned, MONIQUE 350.1.13.10 [facility] 4.2.7.2.686 [id number] 2020-09-01 2020-09-01 Orders Doctor BASILIA 1.2.840.114 [id number] Univers 00:00:00 00:00:00 Only Unassigned, MONIQUE 350.1.13.10 ity of [facility] 4.2.7.2.686 Jeff as [id number] [facility] 009 Branch 2020-08-25 2020-08-25 Transition Tuan Peters 1.2.840.114 [id number] 00:00:00 00:00:00 of Care Ruchiliban Garciay 350.1.13.10 [place] 4.2.7.2.686 [id number] 2020-08-25 2020-08-25 Transition Tuan Peters 1.2.840.114 [id number] Univers 00:00:00 00:00:00 of Care Ruchi Garciay 350.1.13.10 it y of [place] 4.2.7.2.[place] [id number] [facility] 403 Branch 2020-08-21 2020-08-23 [facility] Ayleen 1.2.840.114 [id number] 01:07:00 18:35:00 Encounter Kelly Amaya 350.1.13.10 [facility] 4.2.7.2.686 [id number] [facility] 2020-08-21 2020-08-23 [facility] Kelly [facility] Ayleen 1. 2.840.114 [id number] [facility] 01:07:00 18:35:00 Encounter Mukul Gallardo ErynKimmy Dorany 350.1.13. 10 ity of [facility] 4.2.7.2.686 Jeff as [id number] [address] Results Test Description Test Time Test Comments Results Result Comments Source POCT GLUCOSE (AUTOMATED) 2020-12-17 15:43:35 Test Item Value Reference Range Interpretation Comme nts POCT GLU (test code = 5234082451) 129 mg/dL 70-110 H Lab Interpretation (test code = 87082-1) Abnormal [facility] (NA, K, CL, CO2, GLUCOSE, BUN, CREATININE, CA)2020-12-17 11:45:07 Test Item Value Reference Range Interpretation Comments NA (test code = 137 mmol/L 135-145 3375878536) K (test code = 3.5 mmol/L 3.5-5.0 1576705974) CL (test code = 103 mmol/L 98-108 5364354614) CO2 TOTAL (test code = 26 mmol/L 23-31 3835863416) AGAP (test code = 2-16 5536735950) BUN (test code = 11 mg/dL 7-23 6991851302) GLUCOSE (test code = 175 mg/dL 70-110 H 5810371059) CREATININE (test code = 0.62 mg/dL 0.60-1.25 6946619466) CALCIUM (test code = 9.0 mg/dL 8.6-10.6 6020468126) eGFR Calculation mL/min/1.73m2 (Non-) (test code = 1694309937) eGFR Calculation mL/min/1.73m2 () (test code = 4011453993) JAMES (test code = JAMES) Association of [...] tests). Lab Interpretation Abnormal (test code = 55019-7) [facility] WITH [id number] 11:07:27 Test Item Value Reference Range Interpretation [...] RDW-SD (test code = 45.2 fL 38.5-51.6 90804-2) RDW-CV (test code = 16.9 % 12.1-15.4 H 788-0) PLT (test code = See_Comment H [Automated 777-3) message] The sy stem which generated this result transmitted reference range : 150 - 328 10*3/ ?L. The reference r torito was not used to interpret this result as normal/abnormal . MPV (test code = 8.1 fL 9.8-13.0 L 74268-4) NRBC/100 WBC (test See_Comment [Automat ed code = 4637634283) message] The system which generated this result transmitted reference range : 0.0 - 10.0 /100 WBCs. The refer ence range was not u sed to interpret th is result as normal/abnormal . NRBC x10^3 (test code <0.01 See_Comment [Auto mated = 7343431971) message] The s ystem which generated this result transmitted reference range : 10*3/?L. The reference range was not used to interpret this result as normal/abnormal . GRAN MAT (NEUT) % 72.8 % (test code = 770-8) IMM GRAN % (test code 0.60 % = 2551086005) LYMPH % (test code = 18.4 % 736-9) MONO % (test code = 5.7 % 5905-5) EOS % (test code = 1.8 % 713-8) BASO % (test code = 0.7 % 706-2) GRAN MAT x10^3(ANC) 8.23 10*3/uL 1.99-6.95 H (test code = 7484905184) IMM GRAN x10^3 (test 0.07 10*3/uL 0.00-0.06 H code = 5685459886) LYMPH x10^3 (test code 2.08 10*3/uL 1.09-3.23 = 731-0) MONO x10^3 (test code 0.65 10*3/uL 0.36-1.02 = 742-7) EOS x10^3 (test code = 0.20 10*3/uL 0.06-0.53 711-2) BASO x10^3 (test code 0.08 10*3/uL 0.01-0.09 = 704-7) Lab Interpretation Abnormal (test code = 00607-4) [facility] 06:03:38 Test Item Value Reference Range Interpretation Comments POCT GLU (test code = 5602102462) 75 mg/dL 70-110 Lab Interpretation (test code = Normal 25829-9) [facility], [id number] 00:01:00 Test Item Value Reference Range Interpretation Comments VIT B6 (test code = 13.1 nmol/L 20.0-125.0 L INTERPRE TIVE 37679-3) INFORMATION: Vi tamin B6 (Pyridoxal 5-Phosphate) Pyridoxal 5'-phosphate me asured in a specimen collected follo wing an 8-hour or overnight fast accurately clara keene vitamin B6 nutritional sta tus. Non-fasting spe cimen concentration reflects recent vitamin intake. This test was develo ped and its perform ance characteristics determined by [facility]. I t has not been cleare d or approved by the [place] Food and Drug Administration. This test was perfor med in a CLIA certifie d laboratory and is intended for cl inical purposes.Perfor med By: [address] [place] [address] [id number] Director: Namrata Klein MD Lab Interpretation Abnormal (test code = 02183-0) [facility] TIBIA FIBULA 2 VW [id number] 23:57:09 Tricompartmental knee joint osteoarthrosis.XR TIBIA FIBULA [...] No acute fracture or dislocation.IMPRESSIONTricompartmental knee joint osteoarthrosis.[facility] GLUCOSE (AUTOMATED) 2020-12-16 23:27:00 Test Item Value Reference Range Interpretation Comments POCT GLU (test code = 7042110358) 114 mg/dL 70-110 H Lab Interpretation (test code = Abnormal 13293-7) [facility] GLUCOSE (AUTOMATED)2020-12-16 20:12:00 Test Item Value Reference Range Interpretation Comments POCT GLU (test code = 7052428986) 105 mg/dL 70-110 Lab Interpretation (test code = Normal 88260-9) [facility] GLUCOSE (AUTOMATED)2020-12-16 14:44:00 Test Item Value Reference Range Interpretation Comments POCT GLU (test code = 5903585134) 153 mg/dL 70-110 H Lab Interpretation (test code = Abnormal 05210-9) [facility] (NA, K, CL, CO2, GLUCOSE, BUN, CREATININE, CA)2020-12-16 14:23:00 Test Item Value Reference Range Interpretation Comments NA (test code = 138 mmol/L 135-145 6583217857) K (test code = 3.4 mmol/L 3.5-5.0 L 6506222264) CL (test code = 100 mmol/L 98-108 1887912024) CO2 TOTAL (test code = 31 mmol/L 23-31 6688845657) AGAP (test code = 2-16 2648044101) BUN (test code = 11 mg/dL 7-23 4182776629) GLUCOSE (test code = 162 mg/dL 70-110 H 6140067588) CREATININE (test code = 0.64 mg/dL 0.60-1.25 5784848417) CALCIUM (test code = 8.9 mg/dL 8.6-10.6 9737543239) eGFR Calculation mL/min/1.73m2 (Non-) (test code = 1399815006) eGFR Calculation mL/min/1.73m2 () (test code = 4988085653) JAMES (test code = JAMES) Association of [...] tests). Lab Interpretation Abnormal (test code = 14526-8) [facility] WITH [id number] 14:05:00 Test Item Value Reference Range Interpretation [...] RDW-SD (test code = 45.4 fL 38.5-51.6 66929-0) RDW-CV (test code = 17.0 % 12.1-15.4 H 788-0) PLT (test code = See_Comment H [Automated 777-3) message] The sy stem which generated this result transmitted reference range : 150 - 328 10*3/ ?L. The reference r torito was not used to interpret this result as normal/abnormal . MPV (test code = 8.0 fL 9.8-13.0 L 06950-0) NRBC/100 WBC (test See_Comment [Automat ed code = 3365613247) message] The system which generated this result transmitted reference range : 0.0 - 10.0 /100 WBCs. The refer ence range was not u sed to interpret th is result as normal/abnormal . NRBC x10^3 (test code <0.01 See_Comment [Auto mated = 3398862637) message] The s ystem which generated this result transmitted reference range : 10*3/?L. The reference range was not used to interpret this result as normal/abnormal . GRAN MAT (NEUT) % 70.0 % (test code = 770-8) IMM GRAN % (test code 0.70 % = 2319376249) LYMPH % (test code = 20.5 % 736-9) MONO % (test code = 7.1 % 5905-5) EOS % (test code = 1.0 % 713-8) BASO % (test code = 0.7 % 706-2) GRAN MAT x10^3(ANC) 9.44 10*3/uL 1.99-6.95 H (test code = 3547126010) IMM GRAN x10^3 (test 0.09 10*3/uL 0.00-0.06 H code = 4462978812) LYMPH x10^3 (test code 2.76 10*3/uL 1.09-3.23 = 731-0) MONO x10^3 (test code 0.96 10*3/uL 0.36-1.02 = 742-7) EOS x10^3 (test code = 0.13 10*3/uL 0.06-0.53 711-2) BASO x10^3 (test code 0.10 10*3/uL 0.01-0.09 H = 704-7) Lab Interpretation Abnormal (test code = 19163-8) [facility] - Peripheral # [id number] 13:01:00 Test Item Value Reference Range Interpretation Comments Blood Culture-Aerobic No organisms No growth Previo us (test code = 69554-3) isolated prelim inary verified result was Culture In Progress on 12/11/2020 at 100 1 CSTPrevious preliminary verified result was No growth a t 24 hours on 12/12/2020 at 070 1 CSTPrevious preliminary verified result was No growth a t 48 hours on 12/13/2020 at 070 1 CSTPrevious preliminary verified result was No growth a t 72 hours on 12/14/2020 at 070 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 No growth Previous Culture-Anaerobic isolated preliminar y (test code = 93747-8) verifi ed result was Culture In Progress on 12/11/2020 at 100 1 CSTPrevious preliminary verified result was No growth a t 24 hours on 12/12/2020 at 070 1 CSTPrevious preliminary verified result was No growth a t 48 hours on 12/13/2020 at 070 1 CSTPrevious preliminary verified result was No growth a t 72 hours on 12/14/2020 at 070 1 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 Lab Interpretation Normal (test code = 01653-1) [facility] Culture - Peripheral # [id number] 13:01:00 Test Item Value Reference Range Interpretation Comments Blood Culture-Aerobic No organisms No growth Previo us (test code = 24110-1) isolated prelim inary verified result was Culture In Progress on 12/11/2020 at 100 1 CSTPrevious preliminary verified result was No growth a t 24 hours on 12/12/2020 at 070 1 CSTPrevious preliminary verified result was No growth a t 48 hours on 12/13/2020 at 070 1 CSTPrevious preliminary verified result was No growth a t 72 hours on 12/14/2020 at 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 No growth Previous Culture-Anaerobic isolated preliminar y (test code = 40905-2) verifi ed result was Culture In Progress on 12/11/2020 at 100 1 CSTPrevious preliminary verified result was No growth a t 24 hours on 12/12/2020 at 070 1 CSTPrevious preliminary verified result was No growth a t 48 hours on 12/13/2020 at 070 1 CSTPrevious preliminary verified result was No growth a t 72 hours on 12/14/2020 at 070 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 No interval change in [...] stableappearance of intra and extrahepatic biliary ductal dilatation.[facility] GLUCOSE (AUTOMATED)2020-12-15 19:28:00 Test Item Value Reference Range Interpretation Comments POCT GLU (test code = 9518132258) 140 mg/dL 70-110 H Lab Interpretation (test code = Abnormal 97825-8) [facility] 15:26:00 Test Item Value Reference Range Interpretation Comments MAGNESIUM (test code = 3016343392) 2.2 mg/dL 1.7-2.4 Lab Interpretation (test code = Normal 03633-5) [facility] GLUCOSE (AUTOMATED)2020-12-15 15:15:00 Test Item Value Reference Range Interpretation Comments POCT GLU (test code = 8864236722) 181 mg/dL 70-110 H Lab Interpretation (test code = Abnormal 63974-2) [facility] METABOLIC PANEL (NA, K, CL, CO2, GLUCOSE, BUN, CREATININE, CA)2020-12-15 13:07:00 Test Item Value Reference Range Interpretation Comments NA (test code = 136 mmol/L 135-145 7609120939) K (test code = 3.6 mmol/L 3.5-5.0 3371349494) CL (test code = 96 mmol/L 98-108 L 7750470657) CO2 TOTAL (test code = 29 mmol/L 23-31 6824559184) AGAP (test code = 2-16 6555379289) BUN (test code = 12 mg/dL 7-23 4483822438) GLUCOSE (test code = 183 mg/dL 70-110 H 9395533330) CREATININE (test code = 0.70 mg/dL 0.60-1.25 4594138788) CALCIUM (test code = 9.2 mg/dL 8.6-10.6 2486378808) eGFR Calculation mL/min/1.73m2 (Non-) (test code = 8977547901) eGFR Calculation mL/min/1.73m2 () (test code = 0698438160) JAMES (test code = JAMES) Association of [...] tests). Lab Interpretation Abnormal (test code = 44092-4) [facility] WITH [id number] 12:32:00 Test Item Value Reference Range Interpretation Comments WBC (test code = See_Comment H [Automated 3290-2) message] The system which generated this result transmit ronan reference range : 4.20 - 10.70 10*3/?L. The reference range was not used to interpret this result as normal/abnormal . RBC (test code = See_Comment H [Automated 759-8) message] The system which generated this result [...] RDW-SD (test code = 44.4 fL 38.5-51.6 58060-8) RDW-CV (test code = 17.7 % 12.1-15.4 H 788-0) PLT (test code = See_Comment H [Automated 777-3) message] The system which generated this result transmit ronan reference range : 150 - 328 10*3/ ?L. The reference range was not u sed to interpret th is result as normal/abnormal . MPV (test code = 8.1 fL 9.8-13.0 L 26741-1) NRBC/100 WBC (test See_Comment [Automat ed code = 0908937358) message] The system which generated this result transmit ronan reference range : 0.0 - 10.0 /100 WBCs. The reference range was not used to interpret this result as normal/abnormal . NRBC x10^3 (test code <0.01 See_Comment [Auto mated = 6080603495) message] The system which generated this result transmit ronan reference range : 10*3/?L. The reference range was not used to interpret this result as normal/abnormal . GRAN MAT (NEUT) % 74.5 % (test code = 770-8) IMM GRAN % (test code 0.70 % = 7371919266) LYMPH % (test code = 17.4 % 736-9) MONO % (test code = 6.8 % 5905-5) EOS % (test code = 0.2 % 713-8) BASO % (test code = 0.4 % 706-2) GRAN MAT x10^3(ANC) 11.99 10*3/uL 1.99-6.95 H (test code = 5461845579) IMM GRAN x10^3 (test 0.11 10*3/uL 0.00-0.06 H code = 5545108037) LYMPH x10^3 (test code 2.80 10*3/uL 1.09-3.23 = 731-0) MONO x10^3 (test code 1.10 10*3/uL 0.36-1.02 H = 742-7) EOS x10^3 (test code = 0.03 10*3/uL 0.06-0.53 L 711-2) BASO x10^3 (test code 0.06 10*3/uL 0.01-0.09 = 704-7) Lab Interpretation Abnormal (test code = 11989-0) [facility] GLUCOSE (AUTOMATED)2020-12-15 04:16:00 Test Item Value Reference Range Interpretation Comments POCT GLU (test code = 0027857984) 200 mg/dL 70-110 H Lab Interpretation (test code = Abnormal 22014-6) [facility] (THIAMINE), WHOLE [id number] 00:30:00 Test Item Value Reference Range Interpretation Comments Vitamin B1, Whole 136 nmol/L 70-180 INTERPRETI VE INFORMATION: Blood (test code = Vitamin B 1, Whole Blood 68016-3) This assay júnior ures the concentration o f thiamine diphosphate (TD P), the primary active form of vitamin B1. Nick roximately 90 percent of v itamin B1 present in whol e blood is TDP. Thiamine a nd thiamine monoph osphate, which comprise the remaining 10 pe rcent, are not measured. T his test was developed a nd its performance characteristics determined by [facility]. I t has not been cleared or approved by the [place] Food and Drug Administration. This test was performed i n a CLIA certified labor atory and is intended for clinical purposes.Perfor med By: [facility] [place] [address] [id number] aboratory Director: Namrata Klein MD [facility] GLUCOSE (AUTOMATED)2020-12-14 23:35:00 Test Item Value Reference Range Interpretation Comments POCT GLU (test code = 8283653667) 151 mg/dL 70-110 H Lab Interpretation (test code = Abnormal 41857-1) [facility] GLUCOSE (AUTOMATED)2020-12-14 19:19:00 Test Item Value Reference Range Interpretation Comments POCT GLU (test code = 8065249386) 193 mg/dL 70-110 H Lab Interpretation (test code = Abnormal 94550-1) [facility] GLUCOSE (AUTOMATED)2020-12-14 15:22:00 Test Item Value Reference Range Interpretation Comments POCT GLU (test code = 0330771967) 221 mg/dL 70-110 H Lab Interpretation (test code = Abnormal 93688-8) [facility] GLUCOSE (AUTOMATED)2020-12-14 02:37:00 Test Item Value Reference Range Interpretation Comments POCT GLU (test code = 3330904128) 210 mg/dL 70-110 H Lab Interpretation (test code = Abnormal 12890-4) [facility] GLUCOSE (AUTOMATED)2020-12-13 23:33:00 Test Item Value Reference Range Interpretation Comments POCT GLU (test code = 1532008182) 182 mg/dL 70-110 H Lab Interpretation (test code = Abnormal 61082-8) [facility] GLUCOSE (AUTOMATED)2020-12-13 18:09:00 Test Item Value Reference Range Interpretation Comments POCT GLU (test code = 3031483895) 150 mg/dL 70-110 H Lab Interpretation (test code = Abnormal 30329-3) [facility] METABOLIC PANEL (NA, K, CL, CO2, GLUCOSE, BUN, CREATININE, CA)2020-12-13 16:27:00 Test Item Value Reference Range Interpretation Comments NA (test code = 136 mmol/L 135-145 8530107962) K (test code = 3.7 mmol/L 3.5-5.0 5323229937) CL (test code = 96 mmol/L 98-108 L 9802876994) CO2 TOTAL (test code = 29 mmol/L 23-31 7151572800) AGAP (test code = 2-16 1026840305) BUN (test code = 6 mg/dL 7-23 L 3765074005) GLUCOSE (test code = 212 mg/dL 70-110 H 0492648409) CREATININE (test code = 0.61 mg/dL 0.60-1.25 5934847586) CALCIUM (test code = 9.5 mg/dL 8.6-10.6 1502819254) eGFR Calculation mL/min/1.73m2 (Non-) (test code = 8290839002) eGFR Calculation mL/min/1.73m2 () (test code = 4201501214) JAMES (test code = JAMES) Association of [...] tests). Lab Interpretation Abnormal (test code = 46247-4) [facility] WITH [id number] 16:10:00 Test Item Value Reference Range Interpretation Comments WBC (test code = See_Comment H [Automated 4296-2) message] The sy stem which generated this [...] RDW-SD (test code = 43.3 fL 38.5-51.6 50031-0) RDW-CV (test code = 16.2 % 12.1-15.4 H 788-0) PLT (test code = See_Comment H [Automated 777-3) message] The sy stem which generated this result transmitted reference range : 150 - 328 10*3/ ?L. The reference r torito was not used to interpret this result as normal/abnormal . MPV (test code = 8.2 fL 9.8-13.0 L 78233-1) NRBC/100 WBC (test See_Comment [Automat ed code = 2343244530) message] The system which generated this result transmitted reference range : 0.0 - 10.0 /100 WBCs. The refer ence range was not u sed to interpret th is result as normal/abnormal . NRBC x10^3 (test code <0.01 See_Comment [Auto mated = 6528519283) message] The s ystem which generated this result transmitted reference range : 10*3/?L. The reference range was not used to interpret this result as normal/abnormal . GRAN MAT (NEUT) % 86.2 % (test code = 770-8) IMM GRAN % (test code 0.70 % = 5309768279) LYMPH % (test code = 10.2 % 736-9) MONO % (test code = 2.5 % 5905-5) EOS % (test code = 0.1 % 713-8) BASO % (test code = 0.3 % 706-2) GRAN MAT x10^3(ANC) 9.61 10*3/uL 1.99-6.95 H (test code = 1753702067) IMM GRAN x10^3 (test 0.08 10*3/uL 0.00-0.06 H code = 1675887395) LYMPH x10^3 (test code 1.14 10*3/uL 1.09-3.23 = 731-0) MONO x10^3 (test code 0.28 10*3/uL 0.36-1.02 L = 742-7) EOS x10^3 (test code = <0.03 0.06-0.53 L 711-2) BASO x10^3 (test code 0.03 10*3/uL 0.01-0.09 = 704-7) Lab Interpretation Abnormal (test code = 20401-6) [facility]2020-12[facility]13 14:16:00 Test Item Value Reference Range Interpretation Comments POCT GLU (test code = 0234415649) 236 mg/dL 70-110 H Lab Interpretation (test code = Abnormal 01366-9) [facility] COVID [id number] 04:58:00COVID DMT InterpretationInterpretation/Recommendations: Molecular NAAT Tests for [...] COVID-19 testing the patient has had at [facility], including molecular NAAT testing (more commonly known as PCR testing and Rapid ID Now testing) and antibody testing. It does not take into account any testingthat a patient has had outside of the [facility] medical record. [facility] LABORATORY SERVICESCOVID EstrfmvDXPM-HuX-4 Rapid ID NOW (no units) ? ? Date ? Value ? 12/11/2020 ? Not Detected ? ? ? 11/16/2020 ? Not Detected ? ? ? 08/21/2020 ? Not Detected ? [facility] SERVICESUnGeneral [facility] GLU[facility]SE (AUTOMATED) 2020-12-13 03:11:00 Test Item Value Reference Range Interpretation Comments POCT GLU (test code = 1277843498) 171 mg/dL 70-110 H Lab Interpretation (test code = Abnormal 77874-5) [facility] GLUCOSE (AUTOMATED)2020-12-13 00:00:00 Test Item Value Reference Range Interpretation Comments POCT GLU (test code = 0132632534) 118 mg/dL 70-110 H Lab Interpretation (test code = Abnormal 66087-2) [facility] GLUCOSE (AUTOMATED)2020-12-12 20:29:00 Test Item Value Reference Range Interpretation Comments POCT GLU (test code = 0999656394) 173 mg/dL 70-110 H Lab Interpretation (test code = Abnormal 38562-0) [facility] Hospital[facility]EN [id number] 19:56:17 1. ?Hepatic steatosis. However, limited evaluation [...] main portal veinwasevaluated with color Doppler imaging. Accountant images were obtainedfor the record. COMPARISON: Ultrasound [...] SPLEEN:No images were obtained. [facility], Radiant Results Inft User - 12/12/2020 1:57 PM CSTEXAM: US ABDOMEN LIMITEDHISTORY: 70 years-old male with RUQ ultrasound to assess for common bileduct dilation .TECHNIQUE: Limited abdominal ultrasound focused on the liver, biliarysystem, pancreas, and spleen was performed. The main portal vein wasevaluated with color Doppler imaging. Accountant images wereobtainedfor the record.COMPARISON: Ultrasound abdomen 11/17/2028. [...] reviewed this study and agree with the abovereport.[facility]2020-12-12 19:24:00 Test Item Value Reference Range Interpretation Comments POCT GLU (test code = 6870440622) 230 mg/dL 70-110 H Lab Interpretation (test code = Abnormal 47279-5) [facility]ST 1 [id number] 15:16:46 Low lung volumes with mild perihilar [...] reviewed this study and agree with theabove report.[facility]2020-12-12 14:34:00 Test Item Value Reference Range Interpretation Comments POCT GLU (test code = 1318029984) 225 mg/dL 70-110 H Lab Interpretation (test code = Abnormal 15436-4) [facility] HospitalURINE [id number] 13:28:00 Test Item Value Reference Range Interpretation Comments URINE CULTURE (test < 10,000 CFU/mL mixed code = 630-4) aerobic organisms - suggests endogenous microbial contamination [facility] (NA, K, CL, CO2, GLUCOSE, BUN, CREATININE, CA)2020-12-12 10:05:00 Test Item Value Reference Range Interpretation Comments NA (test code = 136 mmol/L 135-145 9069335116) K (test code = 3.5 mmol/L 3.5-5.0 4355602519) CL (test code = 100 mmol/L 98-108 2490987049) CO2 TOTAL (test code = 31 mmol/L 23-31 8595050350) AGAP (test code = 2-16 3172836097) BUN (test code = 7 mg/dL 7-23 6876241655) GLUCOSE (test code = 259 mg/dL 70-110 H 9145362907) CREATININE (test code = 0.63 mg/dL 0.60-1.25 1702860611) CALCIUM (test code = 8.5 mg/dL 8.6-10.6 L 4882586084) eGFR Calculation mL/min/1.73m2 (Non-) (test code = 1296145315) eGFR Calculation mL/min/1.73m2 () (test code = 8592521326) JAMES (test code = JAMES) Association of [...] tests). Lab Interpretation Abnormal (test code = 88930-9) [facility] HospitalMagnesium [id number] 10:05:00 Test Item Value Reference Range Interpretation Comments MAGNESIUM (test code = 9233535069) 1.9 mg/dL 1.7-2.4 Lab Interpretation (test code = Normal 78275-0) [facility] with [id number] 09:48:00 Test Item Value Reference Range Interpretation Comments WBC (test code = See_Comment [Automated 1824-2) message] The sy stem which generated this result transmitted reference range : 4.20 - 10.70 10*3/?L. The reference range was not used to interpret this result as normal/abnormal . RBC (test code = See_Comment [Automated 766-1) message] The sy stem which generated this [...] RDW-SD (test code = 46.0 fL 38.5-51.6 40908-4) RDW-CV (test code = 16.1 % 12.1-15.4 H 788-0) PLT (test code = See_Comment H [Automated 777-3) message] The sy stem which generated this result transmitted reference range : 150 - 328 10*3/ ?L. The reference r torito was not used to interpret this result as normal/abnormal . MPV (test code = 8.6 fL 9.8-13.0 L 63086-2) NRBC/100 WBC (test See_Comment [Automat ed code = 0478321288) message] The system which generated this result transmitted reference range : 0.0 - 10.0 /100 WBCs. The refer ence range was not u sed to interpret th is result as normal/abnormal . NRBC x10^3 (test code <0.01 See_Comment [Auto mated = 5635374799) message] The s ystem which generated this result transmitted reference range : 10*3/?L. The reference range was not used to interpret this result as normal/abnormal . GRAN MAT (NEUT) % 70.2 % (test code = 770-8) IMM GRAN % (test code 0.30 % = 0202940976) LYMPH % (test code = 18.8 % 736-9) MONO % (test code = 5.0 % 5905-5) EOS % (test code = 5.2 % 713-8) BASO % (test code = 0.5 % 706-2) GRAN MAT x10^3(ANC) 6.05 10*3/uL 1.99-6.95 (test code = 0504241479) IMM GRAN x10^3 (test 0.03 10*3/uL 0.00-0.06 code = 8639170238) LYMPH x10^3 (test code 1.62 10*3/uL 1.09-3.23 = 731-0) MONO x10^3 (test code 0.43 10*3/uL 0.36-1.02 = 742-7) EOS x10^3 (test code = 0.45 10*3/uL 0.06-0.53 711-2) BASO x10^3 (test code 0.04 10*3/uL 0.01-0.09 = 704-7) Lab Interpretation Abnormal (test code = 79868-1) [facility] GLUCOSE (AUTOMATED)2020-12-12 03:42:00 Test Item Value Reference Range Interpretation Comments POCT GLU (test code = 196 mg/dL 70-110 H Notifi ed Provider 7073449218) Lab Interpretation (test Abnormal code = 89898-7) [facility] 02:24:00 Test Item Value Reference Range Interpretation Comments FOLATE SER (test code = 5277376400) 5.8 ng/mL 3.0-20.0 Lab Interpretation (test code = Normal 97922-3) [facility] HospitalVITAMIN B12, [id number] 00:55:00 Test Item Value Reference Range Interpretation Comments VIT B12 (test code = 844 pg/mL 240-930 7350463277) JAMES (test code = JAMES) Biotin has been reported to cause a positive bias, interpret results relative to patient's use of biotin. Lab Interpretation (test Normal code = 74874-9) [facility] GLUCOSE (AUTOMATED)2020-12-12 00:14:00 Test Item Value Reference Range Interpretation Comments POCT GLU (test code = 2071382606) 164 mg/dL 70-110 H Lab Interpretation (test code = Abnormal 42430-8) [facility] HospitalCREATINE [id number] 23:42:00 Test Item Value Reference Range Interpretation Comments CK (test code = 6963773049) <20 33-194 L Lab Interpretation (test code = Abnormal 49558-6) [facility] HospitalTHYROID STIMULATING [id number] 23:17:00 Test Item Value Reference Range Interpretation Comments TSH (test code = See_Comment Biotin has been 4328535913) reported to cau se a negative bias, interpret resul ts relative to johnny bills's use of biotin. [Automated mess age] The system [employer] generated this result transmitted ref erence range: 0.45 - 4 .70 mIU/L. The refe rence range was not u sed to interpret this result as normal/abnor mal. Lab Interpretation (test Normal code = 27546-8) [facility] [facility] 3 VW [id number] 21:41:53No appreciable fracture lines. RL: 6200 ICAL [...] No osseous erosions.IMPRESSIONNo appreciable fracture lines.RL: 6200 [facility]PROCALCITONIN2021-[facility]-01 20:00:00 Test Item Value Reference Range Interpretation Comments Procalcitonin (test 0.13 ng/mL <0.07 H code = 5480322283) JAMES (test code = JAMES) INTERPRETATION OF [...] lung abscess/empyema. For further information please refer to:[email or web address] Lab Interpretation Abnormal (test code = 90337-4) [facility]2020-12-11 19:07:00 Test Item Value Reference Range Interpretation Comments POCT GLU (test code = 1126038747) 274 mg/dL 70-110 H Lab Interpretation (test code = Abnormal 63737-2) [facility]MAGN[facility]IUM2021-03-01 18:31:00 Test Item Value Reference Range Interpretation Comments MAGNESIUM (test code = 4403180130) 1.9 mg/dL 1.7-2.4 Lab Interpretation (test code = Normal 90074-9) [facility] HospitalFERRITIN [id number] 18:31:00 Test Item Value Reference Range Interpretation Comments FERRITIN (test code = 178.0 ng/mL 18.0-464.0 9527945513) JAMES (test code = JAMES) Biotin has been reported to cause a negative bias, interpret results relative to patient's use of biotin. Lab Interpretation (test Normal code = 27345-8) [facility] HEAD WO [id number] 14:36:47 No acute intracranial abnormality. Dilated ventricles [...] reviewed this study and agree with the abovereport.[facility] HospitalURINALYSIS2021-03-01 14:28:00 Test Item Value Reference Range Interpretation Comments APPEARANCE (test code = Clear Clear 6435530496) COLOR (test code = Yellow Yellow 6647409700) PH (test code = 4.8-8.0 1153397348) SP GRAVITY (test code = 1.003-1.030 7994970876) GLU U QUAL (test code = 500 mg/dL Normal A 3313670703) BLOOD (test code = Negative Negative 9511953403) KETONES (test code = 5 mg/dL Negative A 4074160652) PROTEIN (test code = Negative Negative 2887-8) UROBILIN (test code = Normal Normal 4303261316) BILIRUBIN (test code = Negative Negative 6312914407) NITRITE (test code = Negative Negative 0312821015) LEUK RYAN (test code = Negative Negative 3506625525) RBC/HPF (test code = See_Comment [Autom ated message] 0361429050) The system XGraph generated this result transmit ronan reference range : 0 - 3 HPF. The refe rence range was not u sed to interpret th is result as normal/abnormal . WBC/HPF (test code = See_Comment [Autom ated message] 9101866258) The system [employer] generated this result transmit ronan reference range : 0 - 5 HPF. The refe rence range was not u sed to interpret th is result as normal/abnormal . BACTERIA (test code = Negative Negative 4871624734) MUCOUS (test code = Slight Negative LPF A 3891989173) SQ EPITH (test code = HPF 6582735052) Lab Interpretation (test Abnormal code = 38306-1) [facility] HospitalCOVID[facility] (ID NOW RAPID TESTING)2020-12-11 13:10:00 Test Item Value Reference Range Interpretation Comments SARS-CoV-2 Rapid ID NOW Not Detected Not Detected (test code = 35262-4) JAMES (test code = JAMES) ID NOW COVID-19 Assay is an isothermal nucleic acid amplification test intended for the qualitative detection of nucleic acid from SARS-CoV-2 viral RNA in nasopharyngeal ([employer]) specimens. It is used under Emergency Use [...] indicated. Lab Interpretation Normal (test code = 36604-1) [facility]. METABOLIC PANEL (01415)2020-12-11 12:29:00 Test Item Value Reference Range Interpretation Comments NA (test code = 136 mmol/L 135-145 7683736383) K (test code = 3.5 mmol/L 3.5-5.0 1667677058) CL (test code = 95 mmol/L 98-108 L 1837333303) CO2 TOTAL (test code = 35 mmol/L 23-31 H 5494407598) AGAP (test code = 2-16 8800763083) BUN (test code = 9 mg/dL 7-23 9387143886) GLUCOSE (test code = 329 mg/dL 70-110 H 4662032430) CREATININE (test code = 0.72 mg/dL 0.60-1.25 6739921130) TOTAL BILI (test code = 0.6 mg/dL 0.1-1.2 5892709903) CALCIUM (test code = 9.0 mg/dL 8.6-10.6 9865262809) T PROTEIN (test code = 6.8 g/dL 6.3-8.2 5515782834) ALBUMIN (test code = 3.8 g/dL 3.5-5.0 3515433088) ALK PHOS (test code = 288 U/L 34-122 H 4002992624) ALTv (test code = 46 U/L 5-50 1742-6) AST(SGOT) (test code = 38 U/L 13-40 6763006210) eGFR Calculation mL/min/1.73m2 (Non-) (test code = 6363297270) eGFR Calculation mL/min/1.73m2 () (test code = 9232372026) JAMES (test code = JAMES) Association of [...] tests). Lab Interpretation Abnormal (test code = 84397-0) [facility] HospitalLactic Acid Whole [id number] 12:23:00 Test Item Value Reference Range Interpretation Comments LACTIC ACID (test code = 2.09 mmol/L 0.50-2.20 2153814936) Lab Interpretation (test code = Normal 49934-8) [facility] WITH [id number] 12:17:00 Test Item Value Reference Range Interpretation [...] RDW-SD (test code = 44.9 fL 38.5-51.6 62889-2) RDW-CV (test code = 15.9 % 12.1-15.4 H 788-0) PLT (test code = See_Comment H [Automated 777-3) message] The sy stem which generated this result transmitted reference range : 150 - 328 10*3/ ?L. The reference r torito was not used to interpret this result as normal/abnormal . MPV (test code = 8.3 fL 9.8-13.0 L 83076-3) NRBC/100 WBC (test See_Comment [Automat ed code = 9004115127) message] The system which generated this result transmitted reference range : 0.0 - 10.0 /100 WBCs. The refer ence range was not u sed to interpret th is result as normal/abnormal . NRBC x10^3 (test code <0.01 See_Comment [Auto mated = 9926978319) message] The s ystem which generated this result transmitted reference range : 10*3/?L. The reference range was not used to interpret this result as normal/abnormal . GRAN MAT (NEUT) % 77.9 % (test code = 770-8) IMM GRAN % (test code 0.50 % = 9315479075) LYMPH % (test code = 12.2 % 736-9) MONO % (test code = 5.2 % 5905-5) EOS % (test code = 3.7 % 713-8) BASO % (test code = 0.5 % 706-2) GRAN MAT x10^3(ANC) 9.57 10*3/uL 1.99-6.95 H (test code = 3357817149) IMM GRAN x10^3 (test 0.06 10*3/uL 0.00-0.06 code = 2378173030) LYMPH x10^3 (test code 1.50 10*3/uL 1.09-3.23 = 731-0) MONO x10^3 (test code 0.64 10*3/uL 0.36-1.02 = 742-7) EOS x10^3 (test code = 0.46 10*3/uL 0.06-0.53 711-2) BASO x10^3 (test code 0.06 10*3/uL 0.01-0.09 = 704-7) Lab Interpretation Abnormal (test code = 70239-3) [facility] ONLY COVID [id number] 18:43:00COVID DMT InterpretationInterpretation/Recommendations: Molecular NAAT Test Results [...] a nasopharyngeal sample, there is approximately a ocu-ot-fislr chance that the patient was infected and [...] based upon aggregate data pooled from the [facility] medical recordincluding both current and prior COVID-19 related testing results for the following tests offered [facility]:A. Tests for the Identification of SARS-CoV-2 RNA:SARS-CoV-2 PCR assays including Trinchera Aptima, Trinchera Fusion, Barrett RealTime, and Motility Count Xpert Xpress. SARS-CoV-2 Rapid ID NOW by the ID NOW assay. ? B. Tests for the Identification of SARS-CoV-2 Antibodies: Chemiluminescent immunoassays including Access SARS-CoV-2 IgM (DXI 600), [employer] Ogmi-ZZTZ-MeT-2 IgG (Vitros 5600 and Vitros 3600), and Barrett SARS-CoV-2 IgG (HEAT TREAT INSPECTOR I System). These interpretation comments assume that only the above testing was utilized and that the approved acceptable specimen type(s) were used for a given test. These interpretations are autopopulated into [employer] based on computerized algorithms matching an interpretation code number to the patient's set of test results. While a clinical pathologist evaluates the combinations for clinical accuracy, clinical correlation is recommended as it may not take into account very remote prior testing. Furthermore, it does not consider testing a patient may have had outside of the [facility] system. Additionally, it should be noted that the computerized algorithm treats the results for PCR testing and Rapid ID NOW testing (also PCR) synonymously, and thus, refers to both testing methodologies as PCR tests. Given that the sensitivity of [facility]'s Rapid ID NOW testing platform is [...] pathogen panel may be beneficialin this setting. [facility] LABORATORY SERVICESCOVID UfkqoxkOYOQ-RzL-1 Rapid ID NOW (no units) ? ? Date ? Value ? 08/21/2020 ? Not Detected ? [facility] SERVICESUnGeneral [facility] hospital GLU[facility]SE (AUTOMATED)2020-08-23 18:25:00 Test Item Value Reference Range Interpretation Comments POCT GLU (test code = 8155482037) 297 mg/dL 70-110 H Lab Interpretation (test code = Abnormal 61391-8) [facility] GLUCOSE (AUTOMATED)2020-08-23 14:25:00 Test Item Value Reference Range Interpretation Comments POCT GLU (test code = 9006334544) 181 mg/dL 70-110 H Lab Interpretation (test code = Abnormal 07547-8) [facility] Metabolic Panel (NA, K, CL, CO2, GLUCOSE, BUN, CREATININE, CA)2020-08-23 11:45:00 Test Item Value Reference Range Interpretation Comments NA (test code = 132 mmol/L 135-145 L 8723744465) K (test code = 4.0 mmol/L 3.5-5 1700191871) CL (test code = 96 mmol/L 98-108 L 2859202298) CO2 TOTAL (test code = 33 mmol/L 23-31 H 8745298213) AGAP (test code = 2-16 3765898680) BUN (test code = 9 mg/dL 7-23 9133162365) GLUCOSE (test code = 176 mg/dL 70-110 H 7736842872) CREATININE (test code = 0.66 mg/dL 0.6-1.25 6894936144) CALCIUM (test code = 8.5 mg/dL 8.6-10.6 L 3037438318) eGFR Calculation mL/min/1.73m2 (Non-) (test code = 1199068502) eGFR Calculation mL/min/1.73m2 () (test code = 5441602021) JAMES (test code = JAMES) Association of [...] tests). Lab Interpretation Abnormal (test code = 73290-3) [facility] HospitalMagnesium [id number] 11:45:00 Test Item Value Reference Range Interpretation Comments MAGNESIUM (test code = 0651171140) 2.0 mg/dL 1.7-2.4 Lab Interpretation (test code = Normal 12259-5) [facility] HospitalCB with [id number] 11:38:00 Test Item Value Reference Range Interpretation Comments WBC (test code = See_Comment [Automated 8690-2) message] The sy stem which generated this result transmitted reference range : 4.20 - 10.70 10*3/?L. The reference range was not used to interpret this result as normal/abnormal . RBC (test code = See_Comment [Automated 299-8) message] The sy stem which [...] RDW-SD (test code = 41.8 fL 38.5-51.6 09575-3) RDW-CV (test code = 14.3 % 12.1-15.4 788-0) PLT (test code = See_Comment H [Automated 777-3) message] The sy stem which generated this result transmitted reference range : 150 - 328 10*3/ ?L. The reference r torito was not used to interpret this result as normal/abnormal . MPV (test code = 8.0 fL 9.8-13 L 32803-7) NRBC/100 WBC (test See_Comment [Automat ed code = 8370748365) message] The system which generated this result transmitted reference range : 0.0 - 10.0 /100 WBCs. The refer ence range was not u sed to interpret th is result as normal/abnormal . NRBC x10^3 (test code <0.01 See_Comment [Auto mated = 9936898366) message] The s ystem which generated this result transmitted reference range : 10*3/?L. The reference range was not used to interpret this result as normal/abnormal . GRAN MAT (NEUT) % 61.5 % (test code = 770-8) IMM GRAN % (test code 2.00 % = 1525579434) LYMPH % (test code = 25.5 % 736-9) MONO % (test code = 6.3 % 5905-5) EOS % (test code = 3.7 % 713-8) BASO % (test code = 1.0 % 706-2) GRAN MAT x10^3(ANC) 5.29 10*3/uL 1.99-6.95 (test code = 8035007542) IMM GRAN x10^3 (test 0.17 10*3/uL 0-0.06 H code = 1568912799) LYMPH x10^3 (test code 2.19 10*3/uL 1.09-3.23 = 731-0) MONO x10^3 (test code 0.54 10*3/uL 0.36-1.02 = 742-7) EOS x10^3 (test code = 0.32 10*3/uL 0.06-0.53 711-2) BASO x10^3 (test code 0.09 10*3/uL 0.01-0.09 = 704-7) Lab Interpretation Abnormal (test code = 38371-5) [facility] GLUCOSE (AUTOMATED)2020-08-23 10:22:00 Test Item Value Reference Range Interpretation Comments POCT GLU (test code = 4203210555) 164 mg/dL 70-110 H Lab Interpretation (test code = Abnormal 20736-7) [facility] GLUCOSE (AUTOMATED)2020-08-23 05:56:00 Test Item Value Reference Range Interpretation Comments POCT GLU (test code = 4204761608) 242 mg/dL 70-110 H Lab Interpretation (test code = Abnormal 71211-9) [facility] GLUCOSE (AUTOMATED)2020-08-23 03:02:00 Test Item Value Reference Range Interpretation Comments POCT GLU (test code = 1553661978) 210 mg/dL 70-110 H Lab Interpretation (test code = Abnormal 06194-4) [facility] GLUCOSE (AUTOMATED)2020-08-22 23:40:00 Test Item Value Reference Range Interpretation Comments POCT GLU (test code = 9232453482) 267 mg/dL 70-110 H Lab Interpretation (test code = Abnormal 49749-3) [facility] GLUCOSE (AUTOMATED)2020-08-22 19:08:00 Test Item Value Reference Range Interpretation Comments POCT GLU (test code = 8329616170) 191 mg/dL 70-110 H Lab Interpretation (test code = Abnormal 07823-2) [facility] GLUCOSE (AUTOMATED)2020-08-22 13:50:00 Test Item Value Reference Range Interpretation Comments POCT GLU (test code = 7939340096) 174 mg/dL 70-110 H Lab Interpretation (test code = Abnormal 31610-8) [facility] HospitalURINE [id number] 12:59:00 Test Item Value Reference Range Interpretation Comments URINE CULTURE (test No aerobic growth (< code = 630-4) 1000 CFU/mL) [facility] HospitalCBC with [id number] 11:28:00 Test Item Value Reference Range Interpretation Comments WBC (test code = See_Comment [Automated 2290-2) message] The sy stem which generated this result transmitted reference range : 4.20 - 10.70 10*3/?L. The reference range was not used to interpret this result as normal/abnormal . RBC (test code = See_Comment L [Automated 859-8) message] The sy stem which generated this [...] RDW-SD (test code = 42.5 fL 38.5-51.6 06206-7) RDW-CV (test code = 14.5 % 12.1-15.4 788-0) PLT (test code = See_Comment H [Automated 777-3) message] The sy stem which generated this result transmitted reference range : 150 - 328 10*3/ ?L. The reference r torito was not used to interpret this result as normal/abnormal . MPV (test code = 8.0 fL 9.8-13 L 04194-5) NRBC/100 WBC (test See_Comment [Automat ed code = 7962498806) message] The system which generated this result transmitted reference range : 0.0 - 10.0 /100 WBCs. The refer ence range was not u sed to interpret th is result as normal/abnormal . NRBC x10^3 (test code <0.01 See_Comment [Auto mated = 0236915707) message] The s ystem which generated this result transmitted reference range : 10*3/?L. The reference range was not used to interpret this result as normal/abnormal . GRAN MAT (NEUT) % 69.1 % (test code = 770-8) IMM GRAN % (test code 2.20 % = 8236319300) LYMPH % (test code = 20.9 % 736-9) MONO % (test code = 5.8 % 5905-5) EOS % (test code = 1.0 % 713-8) BASO % (test code = 1.0 % 706-2) GRAN MAT x10^3(ANC) 6.51 10*3/uL 1.99-6.95 (test code = 9571266744) IMM GRAN x10^3 (test 0.21 10*3/uL 0-0.06 H code = 7709150995) LYMPH x10^3 (test code 1.97 10*3/uL 1.09-3.23 = 731-0) MONO x10^3 (test code 0.55 10*3/uL 0.36-1.02 = 742-7) EOS x10^3 (test code = 0.09 10*3/uL 0.06-0.53 711-2) BASO x10^3 (test code 0.09 10*3/uL 0.01-0.09 = 704-7) BASO STIPPLING (test Present A code = 703-9) BANDS (test code = Increased A 9584640624) TOXIC CHANGES (test Present A code = 803-7) Lab Interpretation Abnormal (test code = 41763-6) [facility] Metabolic Panel (NA, K, CL, CO2, GLUCOSE, BUN, CREATININE, CA)2020-08-22 11:12:00 Test Item Value Reference Range Interpretation Comments NA (test code = 135 mmol/L 135-145 8142865207) K (test code = 3.6 mmol/L 3.5-5 1692726797) CL (test code = 99 mmol/L 98-108 9012739773) CO2 TOTAL (test code = 31 mmol/L 23-31 2123672892) AGAP (test code = 2-16 1264762692) BUN (test code = 9 mg/dL 7-23 8463382874) GLUCOSE (test code = 198 mg/dL 70-110 H 4119794008) CREATININE (test code = 0.72 mg/dL 0.6-1.25 3245429711) CALCIUM (test code = 8.3 mg/dL 8.6-10.6 L 4555478534) eGFR Calculation mL/min/1.73m2 (Non-) (test code = 7322049280) eGFR Calculation mL/min/1.73m2 () (test code = 5088264086) JAMES (test code = JAMES) Association of [...] tests). Lab Interpretation Abnormal (test code = 48719-5) [facility] HospitalMagnesium [id number] 11:12:00 Test Item Value Reference Range Interpretation Comments MAGNESIUM (test code = 7879308031) 2.0 mg/dL 1.7-2.4 Lab Interpretation (test code = Normal 07309-4) [facility] HospitalLipid Panel (Total Cholesterol, Triglycerides, HDL) - [id number] 11:12:00 Test Item Value Reference Range Interpretation Comments CHOL (test code = 155 mg/dL 120-200 6161141425) HDL (test code = 42 mg/dL >40 7506954557) HDLC RATIO (test code = See_Comment [Au tomated message] 2163121557) The system XGraph generated this result transmit ronan reference range : <=5.0. The refe rence range was not u sed to interpret th is result as normal/abnormal . TRIG (test code = 186 mg/dL 30-170 H 3886632955) LDL CHOL (test code = 76 mg/dL See_Comment [Auto mated message] 47207-4) The system XGraph generated this result transmit ronan reference range : <=160. The refe rence range was not u sed to interpret th is result as normal/abnormal . VLDL (test code = 37 mg/dL 5-60 6781492730) Lab Interpretation (test Abnormal code = 59529-0) [facility] HospitalHEPATIC FUNCTION PANEL (64614) (ALB,T.PRO,BILI T,BU/BC,ALT,AST,ALK PHOS)2020-08-22 11:12:00 Test Item Value Reference Range Interpretation Comments TOTAL BILI (test code = 8693818404) 0.6 mg/dL 0.1-1.1 BILI UNCON (test code = 0445197649) 0.2 mg/dL 0.1-1.1 BILI CONJ (test code = 5768794738) 0.0 mg/dL 0-0.3 T PROTEIN (test code = 7837924603) 6.0 g/dL 6.3-8.2 L ALBUMIN (test code = 8401845295) 2.8 g/dL 3.5-5 L ALK PHOS (test code = 0149738968) 222 U/L 34-122 H ALTv (test code = 1742-6) 27 U/L 5-50 AST(SGOT) (test code = 2780390909) 30 U/L 13-40 Lab Interpretation (test code = Abnormal 97724-6) [facility] GLUCOSE (AUTOMATED)2020-08-22 10:11:00 Test Item Value Reference Range Interpretation Comments POCT GLU (test code = 6901590494) 196 mg/dL 70-110 H Lab Interpretation (test code = Abnormal 55635-6) [facility] GLUCOSE (AUTOMATED)2020-08-22 07:15:00 Test Item Value Reference Range Interpretation Comments POCT GLU (test code = 5984838979) 183 mg/dL 70-110 H Lab Interpretation (test code = Abnormal 95616-8) [facility] GLUCOSE (AUTOMATED)2020-08-22 02:30:00 Test Item Value Reference Range Interpretation Comments POCT GLU (test code = 2567895845) 295 mg/dL 70-110 H Lab Interpretation (test code = Abnormal 13913-6) [facility] GLUCOSE (AUTOMATED)2020-08-21 23:46:00 Test Item Value Reference Range Interpretation Comments POCT GLU (test code = 7331542525) 258 mg/dL 70-110 H Lab Interpretation (test code = Abnormal 19067-6) [facility] HospitalC-REACTIVE [id number] 18:50:00 Test Item Value Reference Range Interpretation Comments CRP (test code = 6660665764) 15.5 mg/dL <0.8 H Lab Interpretation (test code = Abnormal 95767-2) [facility]2020-08-21 18:21:00 Test Item Value Reference Range Interpretation Comments POCT GLU (test code = 7509237113) 297 mg/dL 70-110 H Lab Interpretation (test code = Abnormal 41870-2) [facility] HospitalETHANOL2020-11-09 16:24:00 Test Item Value Reference Range Interpretation Comments ALCOHOL (test code = <10 mg/dL 7927688910) JAMES (test code = Toxic Greater than or JAMES) equal to 80 mg/dL. NOTE: Whole blood values are approximately 10% to 15% lower than serum and plasma. [facility] HospitalGAL/CLC ONLY - URINE DRUG (IMMUNOASSAY) - 4 ER [id number] 15:36:00 Test Item Value Reference Range Interpretation Comments AMPHET (test code = Negative Negative 8091457480) Cocaine Metabolite (test Negative Negative code = 9023492456) OPIATES (test code = Presumptive Positive Negative A 0198681878) THC (test code = Negative Negative 1942662985) JAMES (test code = JAMES) Urine Drug Cutoff Ranges Amphetamine: ? 1,000 ng/mLCocaine: ? 150 ng/mLOpiates: ? 300 ng/mLCannabinoids: ?50 ng/mL The results are to be used only for medical (i.e., treatment) purposes. Unconfirmed screening results must not be used for non-medical purposes (e.g., employment testing, legal testing). Lab Interpretation (test Abnormal code = 68512-5) [facility] ONLY - SYPHILIS [id number] 15:04:00 Test Item Value Reference Range Interpretation Comments Syphilis IgG/IgM (test Non-reactive Non-reactive code = 06695-9) JAMES (test code = JAMES) Non-reactive - No serologic evidence of T. pallidum infection. Cannot exclude incubating or early syphilis. Submit a second specimen in 2-4 weeks if syphilis is clinically suspected. Equivocal - Further testing to follow. Reactive - Further testing to follow. Lab Interpretation (test Normal code = 47414-2) [facility] HospitalUrinalysis2020-11-09 14:52:00 Test Item Value Reference Range Interpretation Comments APPEARANCE (test code = Clear Clear 9933953497) COLOR (test code = Yellow Yellow 8317563300) PH (test code = 4.8-8.0 7669771488) SP GRAVITY (test code = 1.003-1.030 8703307901) GLU U QUAL (test code = 500 mg/dL Normal A 7303884081) BLOOD (test code = Negative Negative 0474493541) KETONES (test code = 20 mg/dL Negative A 0713032979) PROTEIN (test code = Negative Negative 2887-8) UROBILIN (test code = Normal Normal 1815909583) BILIRUBIN (test code = Negative Negative 4341736228) NITRITE (test code = Negative Negative 3476837196) LEUK RYAN (test code = Negative Negative 0772297674) RBC/HPF (test code = <1 See_Comment [Autom ated message] 5330199929) The system XGraph generated this result transmit ronan reference range : 0 - 3 HPF. The refe rence range was not u sed to interpret th is result as normal/abnormal . WBC/HPF (test code = See_Comment [Autom ated message] 8554583295) The system XGraph generated this result transmit ronan reference range : 0 - 5 HPF. The refe rence range was not u sed to interpret th is result as normal/abnormal . BACTERIA (test code = Negative Negative 3716992057) MUCOUS (test code = Slight Negative LPF A 7529121935) Lab Interpretation (test Abnormal code = 32427-6) [facility] HospitalACTIVATED PARTIAL THRMPLAS [id number] 13:45:00 Test Item Value Reference Range Interpretation Comments APTT Patient (test code = See_Comment [ Automated message] 3173-2) The system XGraph generated this result transmitted ref erence range: 26 - 36 Seconds. The re ference range was not u sed to interpret this result as normal/abnor mal. Lab Interpretation (test Normal code = 12092-2) [facility] HospitalPO[facility])2020-08-21 13:45:00 Test Item Value Reference Range Interpretation Comments POCT GLU (test code = 0335986272) 246 mg/dL 70-110 H Lab Interpretation (test code = Abnormal 93744-1) [facility] HospitalHIV 1/2 AG-AB WITH [id number] 12:32:00 Test Item Value Reference Range Interpretation Comments HIV Negative Negative Semi-quantitative (test code = 42074-1) JAMES (test code = Non-reactive for HIV-1 JAMES) antigen and HIV-1/HIV-2 antibodies. ?No laboratory evidence of HIV infection. ?Repeat in 2-4 weeks if acute HIV infection is suspected. [facility] HospitalCBC WITH [id number] 12:18:00 Test Item Value Reference Range Interpretation [...] RDW-SD (test code = 44.4 fL 38.5-51.6 98101-6) RDW-CV (test code = 14.5 % 12.1-15.4 788-0) PLT (test code = See_Comment H [Automated 777-3) message] The sy stem which generated this result transmitted reference range : 150 - 328 10*3/ ?L. The reference r torito was not used to interpret this result as normal/abnormal . MPV (test code = 8.5 fL 9.8-13 L 21839-1) NRBC/100 WBC (test See_Comment [Automat ed code = 0192505046) message] The system which generated this result transmitted reference range : 0.0 - 10.0 /100 WBCs. The refer ence range was not u sed to interpret th is result as normal/abnormal . NRBC x10^3 (test code <0.01 See_Comment [Auto mated = [id number]) message] The s ystem which generated this result transmitted reference range : 10*3/?L. The reference range was not used to interpret this result as normal/abnormal . GRAN MAT (NEUT) % 90.4 % (test code = 770-8) IMM GRAN % (test code 1.30 % = 3020387292) LYMPH % (test code = 7.1 % 736-9) MONO % (test code = 0.5 % 5905-5) EOS % (test code = 0.1 % 713-8) BASO % (test code = 0.6 % 706-2) GRAN MAT x10^3(ANC) 7.74 10*3/uL 1.99-6.95 H (test code = 6675781487) IMM GRAN x10^3 (test 0.11 10*3/uL 0-0.06 H code = 6328565812) LYMPH x10^3 (test code 0.61 10*3/uL 1.09-3.23 L = 731-0) MONO x10^3 (test code 0.04 10*3/uL 0.36-1.02 L = 742-7) EOS x10^3 (test code = <0.03 0.06-0.53 L 711-2) BASO x10^3 (test code 0.05 10*3/uL 0.01-0.09 = 704-7) POLYCHROMASIA (test 2+ See_Comment [Automa ronan code = 36998-7) message] The system which generated this result transmitted reference range : 2+. The referen ce range was not u sed to interpret th is result as normal/abnormal . BANDS (test code = Increased A 7039128862) Lab Interpretation Abnormal (test code = 76440-9) [facility] 11:48:00 Test Item Value Reference Range Interpretation Comments Procalcitonin (test 0.36 ng/mL <0.07 H code = 2879660690) JAMES (test code = JAMES) INTERPRETATION OF [...] lung abscess/empyema. For further information please refer to:[email or web address] Lab Interpretation Abnormal (test code = 87997-8) [facility] HospitalLACOATE [id number] 10:53:00 Test Item Value Reference Range Interpretation Comments LDH (test code = 1627326212) 351 U/L 300-600 Lab Interpretation (test code = Normal 64207-6) [facility] HospitalSEDIMENTATION [id number] 10:07:00 Test Item Value Reference Range Interpretation Comments ESR (test code = See_Comment H [Automated message] 8939610020) The system [employer] generated this result transmitted ref erence range: 0 - 10 m m/HR. The reference r torito was not used to interpret this result as normal/abnor mal. Lab Interpretation (test Abnormal code = 38851-0) [facility]SE (AUTOMATED)2020-08-21 09:45:00 Test Item Value Reference Range Interpretation Comments POCT GLU (test code = 0724272118) 287 mg/dL 70-110 H Lab Interpretation (test code = Abnormal 42453-8) [facility] HospitalGlycosylated Hemoglobin (A1C)2020-08-21 09:29:00 Test Item Value Reference Range Interpretation Comments HGB A1C (test code = 4548-4) 9.8 % 4-6 H Lab Interpretation (test code = Abnormal 04926-5) [facility]COVID[facility]19 (ID NOW RAPID TESTING)2020-08-21 09:13:00 Test Item Value Reference Range Interpretation Comments SARS-CoV-2 Rapid ID NOW Not Detected Not Detected (test code = 47724-6) JAMES (test code = JAMES) ID NOW COVID-19 Assay is an isothermal nucleic acid amplification test intended for the qualitative detection of nucleic acid from SARS-CoV-2 viral RNA in nasopharyngeal ([employer]) specimens. It is used under Emergency Use [...] indicated. Lab Interpretation Normal (test code = 71660-6) [facility] HospitalProthrombin Time / [id number] 08:59:00 Test Item Value Reference Range Interpretation Comments PROTIME PATIENT (test See_Comment H [Auto mated message] code = 5964-2) The system [employer] generated this result transmitted ref erence range: 10.1 - 1 2.6 Seconds. The reference range was not used to int erpret this result as normal/abnormal . INR (test code = 6301-6) Nor mal INR <1.1; Warfarin Therap eutic range 2.0 to 3. 0 or 2.5 to 3.5, dep ending upon the indica tions. Lab Interpretation (test Abnormal code = 11188-3) [facility] HospitalaPTT2020-11-09 08:59:00 Test Item Value Reference Range Interpretation Comments APTT Patient (test code = See_Comment [ Automated message] 3173-2) The system [employer] generated this result transmitted ref erence range: 26 - 36 Seconds. The re ference range was not u sed to interpret this result as normal/abnor mal. Lab Interpretation (test Normal code = 15158-9) [facility]BAS[facility] MET[facility]OLIC PANEL (NA, K, CL, CO2, GLUCOSE, BUN, CREATININE, CA)2020-08-21 08:52:00 Test Item Value Reference Range Interpretation Comments NA (test code = 136 mmol/L 135-145 1069632078) K (test code = 4.3 mmol/L 3.5-5 3131534360) CL (test code = 104 mmol/L 98-108 1594279987) CO2 TOTAL (test code = 24 mmol/L 23-31 2362236588) AGAP (test code = 2-16 9046209358) BUN (test code = 8 mg/dL 7-23 0326814110) GLUCOSE (test code = 308 mg/dL 70-110 H 2923874686) CREATININE (test code = 0.72 mg/dL 0.6-1.25 8922184148) CALCIUM (test code = 7.8 mg/dL 8.6-10.6 L 8750831913) eGFR Calculation mL/min/1.73m2 (Non-) (test code = 1616431730) eGFR Calculation mL/min/1.73m2 () (test code = 3376617889) JAMES (test code = JAMES) Association of [...] tests). Lab Interpretation Abnormal (test code = 70360-3) [facility] HospitalHEPATIC FUNCTION PANEL (69875) (ALB,T.PRO,BILI T,BU/BC,ALT,AST,ALK PHOS)2020-08-21 08:52:00 Test Item Value Reference Range Interpretation Comments TOTAL BILI (test code = 4426851378) 0.8 mg/dL 0.1-1.1 BILI UNCON (test code = 1021543912) 0.3 mg/dL 0.1-1.1 BILI CONJ (test code = 5656454360) 0.0 mg/dL 0-0.3 T PROTEIN (test code = 3961046026) 5.7 g/dL 6.3-8.2 L ALBUMIN (test code = 5538793941) 2.7 g/dL 3.5-5 L ALK PHOS (test code = 3561166581) 245 U/L 34-122 H ALTv (test code = 1742-6) 37 U/L 5-50 AST(SGOT) (test code = 9868493292) 43 U/L 13-40 H Lab Interpretation (test code = Abnormal 32394-6) [facility]
[2022-06-07] MEDS ORDERED: HYDROMORPHONE HCL 1 MG/ML INJ ONE (09:51)
[2022-06-07] MEDS ORDERED: NA CHLORIDE 0.9% 500 ML ONE ×2 (09:51→11:36)
[2022-06-07 10:00] LABS: ALT/SGPT 13 U/L (12-78); AST/SGOT 13 U/L (15-37); Albumin 3.4 g/dL (3.4-5.0); Alkaline Phosphatase 109 U/L (45-117); BUN Blood Urea Nitrogen 14 mg/dL (7-18); Bicarbonate 28 mmol/L (21-32); Bilirubin Total 0.5 mg/dL (0.2-1.0); Glomerular Filtration Rate 75 ml/min (=/>90); Glucose Level 144 mg/dL (74-106); Magnesium 2.6 mg/dL (1.8-2.4); NT PRO-BNP 864 pg/mL (<125); Protein, Total 7.6 g/dL (6.4-8.2); Sodium Level 138 mmol/L (136-145); Troponin High Sensitivity 8.4 pg/mL (<58.9)
[2022-06-07 10:01] LABS: Bilirubin Direct < 0.1 mg/dL (0-0.2)
[2022-06-07 10:18] LABS: Urine Blood Negative (Negative); Urine Glucose Negative (Negative); Urine Protein Negative (Negative); Urine pH 6.5 (5.0-7.0)
--- NOTE | 2022-06-07 10:30 | RAD REPORT ---
EXAM DESCRIPTION: [facility]06/07/2022 8:49 am CLINICAL HISTORY: Tachycardia COMPARISON: April 2022 FINDINGS: The lungs appear clear of acute infiltrate. The heart is normal size IMPRESSION: No acute abnormalities displayed
[2022-06-07 10:49] LABS: Urine Bacteria None Seen /HPF (<20); Urine RBC None Seen /HPF (None Seen)
[2022-06-07 11:11] LABS: Absolute Lymphocytes (CBC) 1.7 K/uL (0.7-4.9); Hematocrit 46.7 % (39.6-49.0); Lymphocytes % 16.2 % (15.3-44.8); MCV 83.6 fL (80-100); MPV 6.5 fL (7.6-11.3); RBC Red Blood Cell Count 5.59 M/uL (4.33-5.43)
[2022-06-07] MEDS ORDERED: DIPHENHYDRAMINE 50 MG/ML VIAL ONE (11:36)
[2022-06-07] MEDS ORDERED: KETOROLAC 30 MG/ML INJ ONE (11:36)
[2022-06-07 11:38] LABS: Protime INR 1.04
[2022-06-07] MEDS ORDERED: LABETALOL 20 MG/4ML SYRINGE IV ONE (12:15)
--- NOTE | 2022-06-07 12:55 | ER ---
Nurse's Notes [facility] Name: Kiel Ngo Age: 71 yrs Sex: Male : 1950 Arrival Date: 06/07/2022 Time: 08:11 Bed 8 Private MD: Diagnosis: Chronic pain syndrome;Candidiasis of other sites-left and right axilla;Hypertensive heart disease without heart failure Presentation: 06/07 08:10 Chief complaint: EMS states: toned out for lower back and right hip pain. reports PT tp1 has been out of pain medication for the past two days and has been unable to see PCP. Reports PT stated he "has a rash on his back that is getting better". states PT is bed ridden. Coronavirus screen: Vaccine status: Patient reports being unvaccinated. Ebola Screen: Patient denies exposure to infectious person. Patient denies travel to an Ebola-affected area in the 21 days before illness onset. Initial Sepsis Screen: Does the patient meet any 2 criteria? No. Patient's initial sepsis screen is negative. Does the patient have a suspected source of infection? No. Patient's initial sepsis screen is negative. Risk Assessment: Do you want to hurt yourself or someone else? Patient reports no desire to harm self or others. Onset of symptoms was June 05, 2022. 08:10 Method Of Arrival: EMS: [facility] tp1 08:10 Acuity: JOZEF 3 tp1 Triage Assessment: 08:10 General: Appears in no apparent distress. comfortable, Behavior is calm, cooperative, tp1 CO itchiness on back. Pain: Complains of pain in lower back and right hip Pain radiates to right leg Pain currently is 10 out of 10 on a pain scale. Quality of pain is described as aching, sharp, Pain began chronic Is continuous. EENT: No signs and/or symptoms were reported regarding the EENT system. Neuro: Level of Consciousness is awake, alert, obeys commands, Oriented to person, place, time, situation. Cardiovascular: Denies chest pain, shortness of breath, Patient's skin is warm and dry. Respiratory: Airway is patent Respiratory effort is even, unlabored. GI: No signs and/or symptoms were reported involving the gastrointestinal system. : No signs and/or symptoms were reported regarding the genitourinary system. Derm: Skin is pink, warm \\T\\ dry. Derm: Skin is Rash noted that is red, on bilateral axillary skin irritation noted on the back. Musculoskeletal: Circulation, motion, and sensation intact. pt reports he is able to walk with a walker but chooses not to because he is afraid he will fall due to weakness. Historical: - Allergies: 08:30 Demerol; tp1 08:30 Morphine; tp1 08:30 metformin; tp1 - Home Meds: 08:30 MUSCLE RELAXER four times a day [Active]; Klonopin 2 mg Oral TbDi 2 tabs 4 times a day tp1 [Active]; dilaaudid [Active]; BP med [Active]; - PMHx: 08:30 Atrial fibrillation; Chronic right leg pain; chronic back pain; neuropathy; tp1 - PSHx: 08:30 back sx; PANCREAS SX; R. Ankle SX; tp1 - Immunization history:: Client reports having NOT received the Covid vaccine. - Social history:: Smoking status: Patient denies any tobacco usage or history of. Screenin:06 Abuse screen: Denies threats or abuse. Nutritional screening: No deficits noted. tp1 Tuberculosis screening: No symptoms or risk factors identified. Fall Risk Fall in past 12 months (25 points). Secondary diagnosis (15 points) impaired mobility, IV access (20 points). Ambulatory Aid- Crutches/Cane/Walker (15 pts). Gait- Weak (10 pts.). Mental Status- Oriented to own ability (0 pts). Total Chow Fall Scale indicates High Risk Score (45 or more points). Fall prevention measures have been instituted. Side Rails Up X 2 Frequent Obs/Assessments Occuring. Assessment: 08:10 General: see triage note. tp1 09:10 Reassessment: Patient appears in no apparent distress at this time. No changes from tp1 previously documented assessment. Patient is alert, oriented x 3, equal unlabored respirations, skin warm/dry/pink. 10:16 Reassessment: states pain has decreased some. rates pain 8/10. tp1 11:00 Reassessment: Pt c/o itchiness to back, provider notified; received VO from Lyubov PA to vg1 administer Benadryl 25 mg IVP x1. 11:17 Reassessment: Patient appears in no apparent distress at this time. Patient is alert, tp1 oriented x 3, equal unlabored respirations, skin warm/dry/pink. continuing to CO itchiness. rates pain 6/10. 12:13 Reassessment: Patient appears in no apparent distress at this time. Patient and/or tp1 family updated on plan of care and expected duration. Pain level reassessed. Patient is alert, oriented x 3, equal unlabored respirations, skin warm/dry/pink. continues to CO itching. rates pain 6/10. provider notified. 12:43 Neuro: Villalobos Agitation-Sedation Scale (RASS): 0 - Alert and Calm. tp1 Vital Signs: 08:10 BP 140 / 100; Pulse 130; Resp 16; Temp 97.5; Pulse Ox 98% on R/A; Weight 83.91 kg; tp1 Height 8 ft. 11 in. (271.78 cm); 09:10 BP 137 / 100; Pulse 132; Resp 16; Pulse Ox 100% ; tp1 10:10 BP 131 / 100; Pulse 131; Resp 16; Pulse Ox 98% on R/A; tp1 11:41 BP 151 / 112; Pulse 120; Resp 18; Pulse Ox 100% on R/A; vg1 12:12 BP 156 / 100; Pulse 118; tp1 12:47 BP 144 / 87; Pulse 99; Resp 12; Pulse Ox 98% on R/A; tp1 13:35 BP 144 / 87; Pulse 97; tp1 08:10 Body Mass Index 11.36 (83.91 kg, 271.78 cm) tp1 ED Course: 08:10 Arm band placed on. tp1 08:10 Patient has correct armband on for positive identification. Bed in low position. Call tp1 light in reach. Side rails up X2. 08:10 Client placed on continuous cardiac and pulse oximetry monitoring. NIBP monitoring tp1 applied. 08:11 Patient arrived in ED. tp1 08:19 Niesha Ugarte RN is Primary Nurse. tp1 08:22 Stu Mcarthur PA is PHCP. cp 08:22 Calvin Wright MD is Attending Physician. cp 08:30 Triage completed. tp1 08:50 XRAY Chest (1 view) In Process Unspecified. EDMS 09:26 Inserted saline lock: 22 gauge in left antecubital area, using aseptic technique. Blood tp1 collected. 09:26 First set of blood cultures drawn EKG done, by ED staff. tp1 10:13 Urine collected: clean catch specimen, clear. tp1 11:17 Initial lab(s) drawn, by me, sent to lab. Second set of blood cultures drawn by me. dh3 Inserted saline lock: 22 gauge in right antecubital area, using aseptic technique. Blood collected. 13:33 No provider procedures requiring assistance completed. IV discontinued, intact, tp1 bleeding controlled, No redness/swelling at site. Pressure dressing applied. Administered Medications: 09:45 Drug: Dilaudid (HYDROmorphone) 1 mg Route: IVP; Site: left antecubital; tp1 10:13 Follow up: Response: Pain is decreased tp1 12:43 Follow up: Response: Pain is decreased; RASS: Alert and Calm (0) tp1 09:46 Drug: NS 0.9% 500 ml Route: IV; Rate: bolus; Site: left antecubital; tp1 11:00 Follow up: IV Status: Completed infusion; IV Intake: 500ml tp1 11:30 Drug: NS 0.9% 500 ml Route: IV; Rate: bolus; Site: left antecubital; vg1 12:00 Follow up: IV Status: Completed infusion; IV Intake: 500ml tp1 11:30 Drug: Ketorolac 15 mg Route: IVP; Site: left antecubital; vg1 12:00 Follow up: Response: Pain is decreased tp1 11:32 Drug: Benadryl (diphenhydrAMINE) 25 mg Route: IVP; Site: left antecubital; vg1 13:36 Follow up: Response: Marked relief of symptoms tp1 12:12 Drug: Labetalol 10 mg Route: IV; Rate: calculated rate; Site: left antecubital; tp1 13:35 Follow up: BP 144 / 87; Pulse 97 bpm; Response: heart rate decreased tp1 13:37 Follow up: IV Status: Completed infusion tp1 Medication: 13:33 VIS not applicable for this client. tp1 Intake: 11:00 IV: 500ml; Total: 500ml. tp1 12:00 IV: 500ml; Total: 1000ml. tp1 Outcome: 12:54 Discharge ordered by cp 13:34 Discharged to home via ambulance. tp1 13:34 Condition: good 13:34 Discharge instructions given to patient, Instructed on discharge instructions, follow up and referral plans. medication usage, Demonstrated understanding of instructions, follow-up care, medications, Prescriptions given X 1. 13:34 Patient left the ED. tp1 Signatures: Dispatcher [employer] EDMS Stu Mcarthur PA PA cp Herrera, Johanna 3 Jaimie Rodríguez RN RN vg1 Neisha Ugarte RN RN tp1 Corrections: (The following items were deleted from the chart) 08:32 08:30 Allergies: Klonopin; tp1 tp1 10:13 09:10 BP 131 / 100; Pulse 131bpm; Resp 16bpm; Pulse Ox 98% RA; tp1 tp1 10:16 08:10 Pulse ox on. NIBP on. tp1 tp1 11:18 08:10 General: Appears in no apparent distress. comfortable, Behavior is calm, tp1 cooperative, tp1 12:14 11:17 Reassessment: Patient appears in no apparent distress at this time. No changes tp1 from previously documented assessment. Patient is alert, oriented x 3, equal unlabored respirations, skin warm/dry/pink. continuing to CO itchiness. denies pain tp1 12:14 12:13 Reassessment: Patient appears in no apparent distress at this time. Patient tp1 and/or family updated on plan of care and expected duration. Pain level reassessed. Patient is alert, oriented x 3, equal unlabored respirations, skin warm/dry/pink. Patient denies pain at this time. tp1 12:43 11:17 Reassessment: Patient appears in no apparent distress at this time. Patient is tp1 alert, oriented x 3, equal unlabored respirations, skin warm/dry/pink. continuing to CO itchiness. denies pain tp1 12:43 12:13 Reassessment: Patient appears in no apparent distress at this time. Patient tp1 and/or family updated on plan of care and expected duration. Pain level reassessed. Patient is alert, oriented x 3, equal unlabored respirations, skin warm/dry/pink. states itching is better Patient denies pain at this time. tp1 12:43 10:15 Response: Pain is decreased tp1 tp1 12:48 12:13 Reassessment: Patient appears in no apparent distress at this time. Patient tp1 and/or family updated on plan of care and expected duration. Pain level reassessed. Patient is alert, oriented x 3, equal unlabored respirations, skin warm/dry/pink. continues to CO itching. rates pain 03/22 tp1
--- NOTE | 2022-06-07 12:55 | EDPHYS ---
Physician Documentation [facility] Name: Kiel Ngo Age: 71 yrs Sex: Male : 1950 Arrival Date: 06/07/2022 Time: 08:11 Bed 8 Private MD: ED Physician Calvin Wright HPI: 06/07 08:35 This 71 yrs old Male presents to ER via EMS with complaints of Back Pain, Rash, Hip cp Pain. 08:35 The patient presents with pain that is chronic, with no known mechanism of injury. The cp symptoms are located in the low back. 08:35 Onset: The symptoms/episode began/occurred chronic. cp 08:35 Associated signs and symptoms: Pertinent positives: rash, Pertinent negatives: cp abdominal pain, chest pain, constipation, fever, numbness, vomiting. Severity of symptoms: in the emergency department the symptoms are unchanged, despite home interventions. Patient reports running out prescribed pain medications. Historical: - Allergies: 08:30 Demerol; tp1 08:30 Morphine; tp1 08:30 metformin; tp1 - Home Meds: 08:30 MUSCLE RELAXER four times a day [Active]; Klonopin 2 mg Oral TbDi 2 tabs 4 times a day tp1 [Active]; dilaaudid [Active]; BP med [Active]; - PMHx: 08:30 Atrial fibrillation; Chronic right leg pain; chronic back pain; neuropathy; tp1 - PSHx: 08:30 back sx; PANCREAS SX; R. Ankle SX; tp1 - Immunization history:: Client reports having NOT received the Covid vaccine. - Social history:: Smoking status: Patient denies any tobacco usage or history of. ROS: 08:40 Constitutional: Negative for body aches, chills, fever, poor PO intake. cp 08:40 Eyes: Negative for injury, pain, redness, and discharge. cp 08:40 ENT: Negative for drainage from ear(s), ear pain, sore throat, difficulty swallowing, difficulty handling secretions. 08:40 Cardiovascular: Negative for chest pain, edema. 08:40 Respiratory: Negative for cough, shortness of breath, wheezing. 08:40 Abdomen/GI: Negative for abdominal pain, vomiting, diarrhea, constipation, black/tarry stool, rectal bleeding. 08:40 Back: Positive for pain at rest, pain with movement. 08:40 MS/extremity: Positive for pain, of the right hip, Negative for paresthesias. 08:40 Skin: Positive for rash, of the back and left arm axilla and right arm axilla. 08:40 Neuro: Negative for altered mental status, headache. 08:40 All other systems are negative. Exam: 08:45 Constitutional: The patient appears in no acute distress, alert, awake, cp non-diaphoretic, non-toxic, well developed, well nourished. 08:45 Head/Face: Normocephalic, atraumatic. cp 08:45 Eyes: Periorbital structures: appear normal, Conjunctiva: normal, no exudate, no injection, Sclera: no appreciated abnormality, Lids and lashes: appear normal, bilaterally. 08:45 ENT: External ear(s): are unremarkable, Nose: is normal, Mouth: Lips: moist, Oral mucosa: moist, Posterior pharynx: Airway: no evidence of obstruction, patent. 08:45 Neck: ROM/movement: is normal, is supple, without pain, no range of motions limitations. 08:45 Chest/axilla: Palpation: is normal, no crepitus, no tenderness, Axilla: rash is noted, bilaterally. 08:45 Cardiovascular: Rate: tachycardic, Rhythm: regular, Edema: is not appreciated, JVD: is not appreciated. 08:45 Respiratory: the patient does not display signs of respiratory distress, Respirations: normal, no use of accessory muscles, no retractions, labored breathing, is not present, Breath sounds: are clear throughout, no decreased breath sounds, no stridor, no wheezing. 08:45 Abdomen/GI: Inspection: abdomen appears normal, Bowel sounds: active, all quadrants, Palpation: abdomen is soft and non-tender, in all quadrants. 08:45 Neuro: Orientation: to person, place \T\ time. Mentation: is normal. cp 09:17 ECG was reviewed by the Attending Physician. cp Vital Signs: 08:10 BP 140 / 100; Pulse 130; Resp 16; Temp 97.5; Pulse Ox 98% on R/A; Weight 83.91 kg; tp1 Height 8 ft. 11 in. (271.78 cm); 09:10 BP 137 / 100; Pulse 132; Resp 16; Pulse Ox 100% ; tp1 10:10 BP 131 / 100; Pulse 131; Resp 16; Pulse Ox 98% on R/A; tp1 11:41 BP 151 / 112; Pulse 120; Resp 18; Pulse Ox 100% on R/A; vg1 12:12 BP 156 / 100; Pulse 118; tp1 12:47 BP 144 / 87; Pulse 99; Resp 12; Pulse Ox 98% on R/A; tp1 13:35 BP 144 / 87; Pulse 97; tp1 08:10 Body Mass Index 11.36 (83.91 kg, 271.78 cm) tp1 MDM: 08:29 Patient medically screened. cp 12:54 Data reviewed: vital signs, nurses notes, lab test result(s), EKG, radiologic studies, cp plain films. 12:54 Differential diagnosis: Cholelithiasis chronic back pain, Pyelonephritis cp Ureterolithiasis. Test interpretation: by ED physician or midlevel provider: ECG, plain radiologic studies. 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 Response to treatment: the patient's symptoms have markedly improved after treatment, and as a result, I will discharge patient. 06/07 08:32 Order name: Basic Metabolic Panel; Complete Time: 10:33 06/07 10:33 Interpretation: Normal except: GLUC 144; GFR 75. 06/07 08:32 Order name: CBC with Diff; Complete Time: 12:02 06/07 12:20 Interpretation: Normal except: RBC 5.59; RDW 16.2; MPV 6.5; DELVIS% 77.0; NEUT A 8.1. 06/07 08:32 Order name: LFT's; Complete Time: 10:33 06/07 10:33 Interpretation: Normal except: AST 13; GLOB 4.2; A/G 0.8. 06/07 08:32 Order name: Magnesium; Complete Time: 10:33 06/07 10:33 Interpretation: Abnormal: MG 2.6. 06/07 08:32 Order name: NT PRO-BNP; Complete Time: 10:33 cp 06/07 10:33 Interpretation: Abnormal: NT PRO-BNP 864. cp 06/07 08:32 Order name: PT-INR; Complete Time: 12:02 cp 06/07 08:32 Order name: Troponin HS; Complete Time: 10:33 cp 06/07 08:32 Order name: Urine Microscopic Only; Complete Time: 10:54 cp 06/07 10:54 Interpretation: Reviewed. cp 06/07 08:32 Order name: Lactate; Complete Time: 10:33 cp 06/07 10:34 Interpretation: Within normal limits: LAC 1.0. cp 06/07 08:32 Order name: Procalcitonin; Complete Time: 10:33 cp 06/07 08:32 Order name: Blood Culture Adult (2) cp 06/07 08:33 Order name: XRAY Chest (1 view); Complete Time: 10:33 cp 06/07 10:18 Order name: Urine Dipstick-Ancillary; Complete Time: 10:33 EDMS 06/07 12:20 Interpretation: Normal except: UKET 1+. cp 06/07 08:32 Order name: EKG; Complete Time: 08:33 cp 06/07 08:32 Order name: Cardiac monitoring; Complete Time: 09:31 cp 06/07 08:32 Order name: EKG - Nurse/Tech; Complete Time: 09:31 cp 06/07 08:32 Order name: IV Saline Lock; Complete Time: 09:31 cp 06/07 08:32 Order name: Labs collected and sent; Complete Time: 09:32 cp 06/07 08:32 Order name: O2 Per Protocol; Complete Time: 08:52 cp 06/07 08:32 Order name: O2 Sat Monitoring; Complete Time: 08:52 cp 06/07 08:32 Order name: Urine Dipstick-Ancillary (obtain specimen); Complete Time: 10:15 cp 06/07 09:37 Order name: Labs - recollect needed: recollect blood hemolyzed/ lab printing label; eb Complete Time: 09:59 EC:17 Rate is 132 beats/min. Rhythm is regular. [place] interval is normal. QRS interval is cp normal. QT interval is normal. T waves are Inverted in lead aVR. Interpreted by me. Reviewed by me. Administered Medications: 09:45 Drug: Dilaudid (HYDROmorphone) 1 mg Route: IVP; Site: left antecubital; tp1 10:13 Follow up: Response: Pain is decreased tp1 12:43 Follow up: Response: Pain is decreased; RASS: Alert and Calm (0) tp1 09:46 Drug: NS 0.9% 500 ml Route: IV; Rate: bolus; Site: left antecubital; tp1 11:00 Follow up: IV Status: Completed infusion; IV Intake: 500ml tp1 11:30 Drug: NS 0.9% 500 ml Route: IV; Rate: bolus; Site: left antecubital; vg1 12:00 Follow up: IV Status: Completed infusion; IV Intake: 500ml tp1 11:30 Drug: Ketorolac 15 mg Route: IVP; Site: left antecubital; vg1 12:00 Follow up: Response: Pain is decreased tp1 11:32 Drug: Benadryl (diphenhydrAMINE) 25 mg Route: IVP; Site: left antecubital; vg1 13:36 Follow up: Response: Marked relief of symptoms tp1 12:12 Drug: Labetalol 10 mg Route: IV; Rate: calculated rate; Site: left antecubital; tp1 13:35 Follow up: BP 144 / 87; Pulse 97 bpm; Response: heart rate decreased tp1 13:37 Follow up: IV Status: Completed infusion tp1 Disposition: 17:53 Co-signature as Attending Physician, Calvin Wright MD I agree with the assessment and kdr plan of care. Disposition Summary: 06/07/22 12:54 Discharge Ordered Location: Home cp Problem: chronic cp Symptoms: have improved cp Condition: Stable cp Diagnosis - Chronic pain syndrome cp - Candidiasis of other sites - left and right axilla cp - Hypertensive heart disease without heart failure cp Followup: cp - With: Private Physician - When: 2 - 3 days - Reason: Recheck today's complaints Discharge Instructions: - Discharge Summary Sheet cp - Chronic Pain, Adult cp - Hypertension, Adult cp - Skin Yeast Infection cp Forms: - Medication Reconciliation Form cp - Thank You Letter cp - Antibiotic Education cp - Prescription Opioid Use cp Prescriptions: - nystatin 100,000 unit/gram Topical ointment - apply 1 application by TOPICAL route 3 times per day for 8-10 days apply to cp areas of rash left and right axilla; 45 gram; Refills: 0, Product Selection Permitted Signatures: Dispatcher [employer] EDMS Calvin Wright MD MD kdr Page, Corey, PA PA cp Botello, Elizabeth eb Garcia, Victoria RN RN vg1 Niesha Ugarte RN RN tp1 Corrections: (The following items were deleted from the chart) 08:32 08:30 Allergies: Klonopin; tp1 tp1 10:14 08:32 Gutierrez ordered. cp tp1
[2022-06-07 14:33] VITALS: TEMP 97.5
[2022-06-07 14:57] VITALS: BP 144/87; O2SAT 98
--- NOTE | 2022-06-08 15:21 | EKG ---
Test Date: 2022-06-07 Test Time: 09:12:27 Simulation Developer: JANI MEASUREMENT RESULTS: Intervals: Rate: 132 CA: 146 QRSD: 80 QT: 304 QTc: 450 [place]: P: 60 CA: 146 QRS: 0 T: 35 INTERPRETIVE STATEMENTS: Sinus tachycardia Inferior infarct, age undetermined Abnormal ECG Compared to ECG 04/28/2022 17:36:50 Myocardial infarct finding now present ST (T wave) deviation no longer present Electronically Signed On 06-08-22 15:18:51 CDT by Óscar Holman
== END 2022-06-07 13:34 | disposition home or self-care (01) ==
LOC: ER 08:09
DX: G89.4 Chronic pain syndrome (principal); B37.89 Other sites of candidiasis; I11.9 Hypertensive heart disease without heart failure; I48.91 Unspecified atrial fibrillation; Z88.5 Allergy status to narcotic agent; Z88.8 Allergy status to other drugs, medicaments and biological substances
CPT/HCPCS: 96365; 96361; 93005; 87040 ×2; 85025; 80048; 36415; 83735; 85610; 80076; 83605; 84484; 84145; 83880; 71045; 96375; 99284; J1200; J1170; J7040 ×2; 81003; 81015

== ENCOUNTER 2022-06-12 03:45 | Emergency (ER) | payer OTHER ==
--- OUTSIDE RECORDS SUMMARY | 2022-06-12 03:53 | XMS REPORT | Continuity of Care Document ---
:1950 Author Organization [facility] t Address [address] [place] [address] Care Team Providers Name Role Phone JESSE [...] PACO LACEY Attending Clinician Unavailable Doctor Unassigned, [place] Attending Clinician Unavailable Wilder VILLAREAL, Angi K.H. Attending Clinician Jl Mccabe MD Attending Clinician Kelly Washington MD Attending Clinician [phone] Mukul Gaines MD Attending Clinician MUKUL GALLARDO Admitting Clinician Unavailable Rene Harrison MD Admitting Clinician Nicci VILLAREAL Mukul Anand Admitting Clinician Payers Payer Name Policy Type Policy Number Effective Date Expiration Date Tony doe MEDICARE PART A [id number] 2007 \\T\\ B 00:00:00 [employer] INDEMNITY [id number] 2016 00:00:00 MEDICARE PART A [id number] 2014 \\T\\ B - MEDICARE 00:00:00 INDEMNITY/TRADITIO [id number] NAL CHOICE - [employer] 00:00:00 Problems Condition [...] ents Source Name Type Date Date Clinician [place] Propensi Active Rash 2019- Univers ty to 1-10 ity of adverse 00:00: [place] reaction 00 Medical [facility] PEACH DRUG Active Rash 2019- Univers INGREDI [...] of adverse 00:00: [place] reaction 00 Medical [facility] Glimepir Propensi Active Hives 2011-0 Univer s efren ty to 3-16 ity of adverse 00:00: [place] reaction 00 Medical [facility] Metformi Propensi Active Itching Unive rs n [...] Quantity Comments Source Exposure to Not sure [place] of SARS-CoV-2 [place] [facility] (event) Branch History of Chews Tobacco University of tobacco use [place] [facility] History SDOH 2020-11-17 2020-11-17 5 University o f Financial 00:00:00 00:00:00 [place] [facility] History SDOH Food 2020-11-17 2020-11-17 1 Univers ity of Worry 00:00:00 00:00:00 [place] [facility] History SDMI Food 2020-11-17 2020-11-17 1 Univers ity of Scarcity 00:00:00 00:00:00 [place] [facility] History SDOH 2020-11-17 2020-11-17 1 University o f Transport Med 00:00:00 00:00:00 [place] Medic al Branch History SDOH 2020-11-17 2020-11-17 1 University o f Transport Non-Med 00:00:00 00:00:00 [facility] edical Branch Education 2020-11-16 2020-11-16 21 [place] of 00:00:00 00:00:00 [facility] Alcohol intake 2020-11-16 2020-11-16 Ex-drinker [facility] 00:00:00 00:00:00 (finding) [facility] Tobacco use and 2020-08-21 2020-08-21 Former user Universi ty of exposure 00:00:00 00:00:00 [facility] Tobacco Comment 2020-08-21 2020-08-21 quit 10 years Univer sity of 00:00:00 00:00:00 ago, started in [place] Med ical 2nd year of Branch college (~40 years) Alcohol Comment 2020-08-21 2020-08-21 Used to have 2-3 Uni versity of 00:00:00 00:00:00 six-packs of [place] Medica l beer daily x 20 Branch years, quit 2005 History [facility] 2020-08-21 2020-08-21 99 University o f Alcohol Frequency 00:00:00 00:00:00 [place] M edical Branch History [facility] 2020-08-21 2020-08-21 99 University o f Alcohol Std 00:00:00 00:00:00 [place] Medical Drinks Branch History [facility] 2020-08-21 2020-08-21 99 [place] o f Alcohol Binge 00:00:00 00:00:00 [facility] al Branch Sex [birth year] Universit y of 00:00:00 00:00:00 [facility] Smoking Status Start Date Stop Date Source Never smoker [facility] Medications Ordered Filled Start Stop [...] by ity of tablet 22:47: mouth at [place] 18 bedtime. Medical Branch HYDROmorpho Yes 4mg [...] by ity of tablet 22:47: mouth at [place] 18 bedtime. Medical Branch HYDROmorpho 2020-0 Yes [...] 0845, Until Discontinu ed, Routine amLODIPine Yes [id number] 10mg Take 1 Univers 10 mg 3-07 tablet by ity of tablet 00:00: mouth [place] 00 daily. Medical Branch clotrimazol 0 Yes [id number] Apply to Univers e 1 % 3-07 face/ears, ity of topical 00:00: armpits, [place] cream 00 pannus and Medical back/any Branch other rash twice a day fluocinonid 2020-0 Yes [id number] Apply to Univers e 0.05 % 3-07 scalp ity of solution 00:00: twice a day Medical Branch triamcinolo Yes [id number] Apply to Univers ne 3-07 back, ity of acetonide 00:00: armpits [place] 0.1 % cream 00 and other Med ical affected Branch areas twice daily, please mix with clotrimazo le hydrOXYzine Yes [id number] 10mg Take 1 Univers 10 mg 3-07 tablet by ity of tablet 00:00: mouth 2 (two) Medical times Branch daily. amLODIPine 0 Yes [id number] 10mg Take 1 Univers 10 mg 3-07 tablet by ity of tablet 00:00: mouth [place] 00 daily. Medical Branch clotrimazol Yes [id number] Apply to Univers e 1 % 3-07 face/ears, ity of topical 00:00: armpits, [place] cream 00 pannus and Medical back/any Branch other rash twice a day fluocinonid 0 Yes [id number] Apply to Univers e 0.05 % 3-07 scalp ity of solution 00:00: twice a day Medical Branch triamcinolo Yes [id number] Apply to Univers ne 3-07 back, ity of acetonide 00:00: armpits [place] 0.1 % cream 00 and other Med ical affected Branch areas twice daily, please mix with clotrimazo le hydrOXYzine Yes [id number] 10mg Take 1 Univers 10 mg 3-07 tablet by ity of tablet 00:00: mouth 2 (two) Medical times Branch daily. amLODIPine 2020-0 Yes [id number] 10mg Take 1 Univers 10 mg 3-07 tablet by ity of tablet 00:00: mouth [place] 00 daily. Medical Branch clotrimazol 2020-0 Yes [id number] Apply to Univers e 1 % 3-07 face/ears, ity of topical 00:00: armpits, [place] cream 00 pannus and Medical back/any Branch other rash twice a day fluocinonid 2020-0 Yes [id number] Apply to Univers e 0.05 % 3-07 scalp ity of solution 00:00: twice a day Medical Branch triamcinolo 2021-0 Yes [id number] Apply to Univers ne 3-07 back, ity of acetonide 00:00: armpits [place] 0.1 % cream 00 and other Med ical affected Branch areas twice daily, please mix with clotrimazo le hydrOXYzine Yes [id number] 10mg Take 1 Univers 10 mg 3-07 tablet by ity of tablet 00:00: mouth 2 [place] 00 (two) Medical times Branch daily. amLODIPine Yes [id number] 10mg Take 1 Univers 10 mg 3-07 tablet by ity of tablet 00:00: mouth [place] 00 daily. Medical Branch clotrimazol Yes [id number] Apply to Univers e 1 % 3-07 face/ears, ity of topical 00:00: armpits, [place] cream 00 pannus and Medical back/any Branch other rash twice a day fluocinonid Yes [id number] Apply to Univers e 0.05 % 3-07 scalp ity of solution 00:00: twice a [place] 00 day Medical Branch triamcinolo Yes [id number] Apply to Univers ne 3-07 back, ity of acetonide 00:00: armpits [place] 0.1 % cream 00 and other Med ical affected Branch areas twice daily, please mix with clotrimazo le hydrOXYzine Yes [id number] 10mg Take 1 Univers 10 mg 3-07 tablet by ity of tablet 00:00: mouth 2 [place] 00 (two) Medical times Branch daily. cephALEXin 2020-2020- No [id number] 500mg Take 1 Univers 500 mg 3-04 14-11 capsule by ity of capsule 00:00: 05:59 mouth [place] 00 :00 every 6 Medical (six) Branch hours for 3 days. cephALEXin 2020-2020- No [id number] 500mg Take 1 Univers 500 mg 3-04 14-11 capsule by ity of capsule 00:00: 05:59 mouth [place] 00 :00 every 6 Medical (six) Branch hours for 3 days. hydrOXYzine 2020-2020- No [id number] 10mg Take 1 Univers 10 mg 3-07 [...] days NaCl 0.9% No 500mL at 999 [facility] ers (NS) bolus 12-15 mL/hr, 500 it y of infusion 16:00: 15:26 mL, IV [place] 500 mL 00 :00 Piggyback, [facility] ONCE, 1 Branch dose, Fri12/15/20 at 1000, STAT HYDROmorpho Yes 4mg 4 mg, [facility] Oral, BID, ity of (DILAUDID) 15:30: First dose [place] tablet 4 mg 00 (after Medica l last Branch modificati on) on Fri12/15/20 at 0930, Until Discontinu ed, Routine amLODIPine 2020- No [id number] 10mg Take 1 Univers 10 mg 12-15 tablet by ity of tablet 00:00: 00:00 mouth [place] 00 :00 daily. Medical Branch HYDROmorpho No 1mg 1 mg, [facility] ers ne 12-14 Oral, ity of (DILAUDID) 17:35: 15:18 Q6HPRN, [place] tablet 1 mg 30 :[address] [facility] 12/14/20 Branch at 1135, Until Fri12/15/20 at 0918, Routine, Pain (scale 7-10) hydrOXYzine Yes 10mg 10 mg, [facility] ers (ATARAX) 12-14 Oral, BID, ity o f tablet 10 17:30: First dose [place] mg 00 on [facility] 12/14/20 at Branch 1130, Until Discontinu ed, Routine lisinopriL Yes 5mg 5 mg, Univer s (PRINIVIL,Z 12-14 Oral, ity of ESTRIL) 17:30: DAILY, [place] tablet 5 mg 00 First dose Me dical on [facility] 12/14/20 at 1130, Until Discontinu ed, Routine triamcinolo 2020- No [id number] Apply to [place] [facility] 12-14 back, ity of acetonide 00:00: 00:00 armpits [place] 0.1 % cream 00 :00 and other Med ical affected Branch areas twice daily, please mix with clotrimazo le clotrimazol 2020- No [id number] Apply to Univers e 1 % 12-14 face/ears, ity of topical 00:00: 00:00 armpits, [place] cream 00 :00 pannus and Medical back/any Branch other rash twice a day fluocinonid 2020- No [id number] Apply to Univers e 0.05 % 12-14 scalp ity of solution 00:00: 00:00 twice a [place] 00 :00 day Medical Branch hydrOXYzine 2020- No [id number] 10mg Take 1 Univers 10 mg 12-14 [...] IV Push, ity of (PF)) 10:07: Q6HPRN, [place] injection 4 28 Starting Medi jose c [...] 1 [place] mg 00 :00 dose, [facility] 12/12/20 at Branch 2145, Routine insulin Yes 15U 15 Units, Unive rs glargine 12-12 Subcutaneo ity o f (LANTUS 15:00: us, DAILY, [place] U-100) 00 First dose Medical injection on [facility] 15 Units 12/12/20 at 0900, Until Discontinu ed hydrOXYzine 2020- No 10mg 10 mg, Uni vers (ATARAX) 12-12 0302 Oral, ity of tablet 10 08:15: 07:33 ONCE, 1 [place] mg 00 :00 dose, [facility] 12/12/20 at Branch 0215, Routine mirtazapine Yes 7.5mg 7.5 mg, Un toi (REMERON) 3 Oral, QHS, ity of tablet 7.5 03:00: First dose [place] mg 00 on [facility] 12/11/20 at Branch 2100, Until Discontinu [...] Oral, ity of (TYLENOL 23:23: 13:49 Q6HPRN, [place] #3) 300-30 43 :08 Starting Medic al [...] ity of 1,000 mg in 19:00: 17:35 [facility], [place] NaCl 0.9% 00 :26 Q8H ABX, Medica l (NS) 50 mL First dose [facility] MINI-BAG on Fri12/11/20 at 1300, Until Discontinu [...] ed, Routine insulin Yes 5U 5 Units, [facility] s lispro 12-11 Subcutaneo ity of (human) 18:00: , TID [place] (HumaLOG 00 MEALS, Medical U-100) First dose Branch injection 5 on Fri Units 12/11/20 at 1200, Until Discontinu ed Polyethylen Yes 17g 17 g, [facility] rs e Glycol 12-11 Oral, ity of 3350 17:47: [id number], [place] (MIRALAX) 05 Starting Medica l powder 17 g 12/11/20 Br anch at 1147, Until Discontinu ed, Routine, Constipati on acetaminoph Yes 650mg 650 mg, Un toi en 12-11 Oral, ity of (TYLENOL) 16:51: Q6HPRN, [place] tablet 650 28 Starting Medic al mg [...]
Duration of therapy: 72 hours sennosides- Yes [id number] 1{tbl} Take 1 [facility] [place] docusate 2- tablet by ity of sodium 00:00: mouth 2 [place] 8.6-50 mg 00 (two) Medical per tablet times Branch daily. hydrocortis Yes [id number] Apply to [facility] [place] one 2.5 % 11-21 affected ity of cream 00:00: area(s) 2 [place] 00 (two) Medical times Branch daily. blood sugar Yes [id number] Use to Univers diagnostic 11-21 check ity of (FREESTYLE 00:00: blood [place] LITE 00 glucose Medical STRIPS) 4-5 times Branch strip daily. Polyethylen Yes [id number] 17g Take 1 Univers e Glycol 11-21 Packet by ity of 3350 17 00:00: mouth [place] gram powder 00 every 24 Medi jose c (twenty-fo Branch ur) hours as needed for Constipati on. sennosides- 2020- Yes [id number] 1{tbl} Take 1 Univers docusate 2-09 tablet by ity of sodium 00:00: mouth 2 [place] 8.6-50 mg 00 (two) Medical per tablet times Branch daily. hydrocortis 2020- Yes [id number] Apply to Univers one 2.5 % 2-09 affected ity of cream 00:00: area(s) 2 [place] 00 (two) Medical times Branch daily. blood sugar 2020- Yes [id number] Use to [facility] [place] diagnostic 11-21 check ity of (FREESTYLE 00:00: blood [place] LITE 00 glucose Medical STRIPS) 4-5 times Branch strip daily. Polyethylen 2020- Yes [id number] 17g Take 1 Univers e Glycol 2-09 Packet by ity of 3350 17 00:00: mouth [place] gram powder 00 every 24 Medi jose c (twenty-fo Branch ur) hours as needed for Constipati on. sennosides- Yes [id number] 1{tbl} Take 1 Univers docusate 2-09 tablet by ity of sodium 00:00: mouth 2 [place] 8.6-50 mg 00 (two) Medical per tablet times Branch daily. hydrocortis 2020- Yes [id number] Apply to Univers one 2.5 % 2-09 affected ity of cream 00:00: area(s) 2 [place] 00 (two) Medical times Branch daily. blood sugar 2020- Yes [id number] Use to [facility] [place] diagnostic 11-21 check ity of (FREESTYLE 00:00: blood [place] LITE 00 glucose Medical STRIPS) 4-5 times Branch strip daily. Polyethylen 2020-0 Yes [id number] 17g Take 1 Univers e Glycol 2-09 Packet by ity of 3350 17 00:00: mouth [place] gram powder 00 every 24 Medi jose c (twenty-fo Branch ur) hours as needed for Constipati on. sennosides- 2020- Yes [id number] 1{tbl} Take 1 Univers docusate 2-09 tablet by ity of sodium 00:00: mouth 2 [place] 8.6-50 mg 00 (two) Medical per tablet times Branch daily. hydrocortis Yes [id number] Apply to [facility] [place] one 2.5 % 11-21 affected ity of cream 00:00: area(s) 2 [place] 00 (two) Medical times Branch daily. blood sugar Yes [id number] Use to [facility] [place] diagnostic 11-21 check ity of (FREESTYLE 00:00: blood [place] LITE 00 glucose Medical STRIPS) 4-5 times Branch strip daily. Polyethylen Yes [id number] 17g Take 1 Univers e Glycol 11-21 Packet by ity of 3350 17 00:00: mouth [place] gram powder 00 every 24 Medi jose c (twenty-fo Branch ur) hours as needed for Constipati on. Insulin 2020- No [id number] 15U inject 15 Univers Glargine 11-21 Units ity of (LANTUS 00:00: 05:59 under the [place] SOLOSTAR 00 :00 skin every Medic al U-100 morning Branch INSULIN) for 30 100 unit/mL days. (3 mL) injection venlafaxine 2020- No [id number] 150mg Take 1 Univers XR 150 mg 11-21 capsule by ity of 24 hr 00:00: 05:59 mouth 3 [place] capsule 00 :00 (three) Medical times Branch daily for 30 days. Insulin 2020- No [id number] 15U inject 15 Univers Glargine 11-21 Units ity of (LANTUS 00:00: 05:59 under the [place] SOLOSTAR 00 :00 skin every Medic al U-100 morning Branch INSULIN) for 30 100 unit/mL days. (3 mL) injection venlafaxine 2020- No [id number] 150mg Take 1 Univers XR 150 mg 11-21 capsule by ity of 24 hr 00:00: 05:59 mouth 3 [place] capsule 00 :00 (three) Medical times Branch daily for 30 days. triamcinolo 2020- No [id number] Apply to [facility] [place] ne 11-21-04 area(s) 2 ity of acetonide 00:00: 00:00 (two) [place] 0.1 % cream 00 :00 times Medical daily. Branch cephALEXin 2020- No [id number] 1000mg Take 2 Univers 500 mg 11-21 capsules ity of capsule 00:00: 00:00 by mouth 3 [place] 00 :00 (three) Medical times Branch daily. doxycycline 2020- No [id number] 100mg Take 1 Univers hyclate 100 11-21 capsule by i ty of mg capsule 00:00: 00:00 mouth [place] 00 :00 every 12 Medical (twelve) Branch hours. lactobacill 2020- No [id number] 1{tbl} Take 1 Univers us 11-21 tablet by ity of acidophilus 00:00: 00:00 mouth 2 [place] 25 million 00 :00 (two) Medical cell -100 times Branch mg captab daily. bisacodyL 2020- No [id number] 10mg Insert 1 Univers 10 mg 11-21 Suppositor ity of suppository 00:00: 00:00 y into [place] 00 :00 rectum at Medical bedtime as Branch needed for Constipati on. ALPRAZolam 2020- No [id number] .25mg Take 1 Univers (XANAX) 11-21 tablet by ity of 0.25 mg 00:00: 00:00 mouth 2 [place] tablet 00 :00 (two) Medical times Branch daily. hydrOXYzine 2020- No [id number] 20mg Take 2 Univers 10 mg 11-21 [...] 3 ity of 6 mg 01:13: (three) [place] capsule 36 times Medical daily. Branch Insulin 2019-10 Yes 15U inject 15 Unive rs Glargine 1-12 Units ity of (LANTUS 01:13: under the [place] SOLOSTAR) 36 skin. Medical 100 unit/mL Branch (3 mL) InPn INSULIN 2019-10 Yes 5U inject 5 Univer s ASPART 1-12 Units ity of (NOVOLOG 01:13: under the [place] [facility] FLEXPEN SC) 36 skin. Medical Branch ALPRAZolam [...] Units ity of (LANTUS 01:13: under the [place] SOLOSTAR) 36 skin. Medical 100 unit/mL Branch [...] Units ity of (LANTUS 01:13: under the [place] SOLOSTAR) 36 skin. Medical 100 unit/mL Branch [...] Units ity of (LANTUS 01:13: under the [place] SOLOSTAR) 36 skin. Medical 100 unit/mL Branch (3 mL) InPn INSULIN 2019-10 Yes 5U inject 5 Univer s ASPART 1-12 Units ity of (NOVOLOG 01:13: under the [place] [facility] FLEXPEN SC) 36 skin. Medical Branch ALPRAZolam [...] Units ity of (LANTUS 01:13: under the [place] SOLOSTAR) 36 skin. Medical 100 unit/mL Branch (3 mL) InPn INSULIN 2019-10 Yes 5U inject 5 Univer s ASPART 1-12 Units ity of (NOVOLOG 01:13: under the [facility] s FLEXPEN SC) 36 skin. Medical Branch ALPRAZolam 2019-10 Yes .25mg Take 0.25 U nivers (XANAX) 1-12 mg by ity of 0.25 mg 01:13: mouth 2 [place] tablet 36 (two) Medical times Branch daily. HYDROXYZINE 2019-10 2020- No 25mg Take 25 mg Univers PAMOATE 1-11 11-11 by mouth ity of ORAL 20:04: 00:00 daily. [place] 34 :00 Medical Branch hydrocortis 2019-10 Yes [id number] Apply to Univers one 2.5 % 1-11 affected ity of cream 00:00: area(s) 2 [place] 00 (two) Medical times Branch daily. hydrOXYzine 2019- Yes [id number] 20mg Take 2 Univers 10 mg 1-11 tablets by ity of tablet 00:00: mouth [place] 00 every 8 Medical (eight) Branch hours as needed for Itching or Anxiety. Polyethylen 2019- Yes [id number] 17g Take 1 Univers e Glycol 1-11 Packet by ity of 3350 17 00:00: mouth [place] gram powder 00 every 24 Medi jose c (twenty-fo Branch ur) hours as needed for Constipati on. hydrocortis 2019-10 Yes [id number] Apply to Univers one 2.5 % 1-11 affected ity of cream 00:00: area(s) 2 [place] 00 (two) Medical times Branch daily. hydrOXYzine 2019- Yes [id number] 20mg Take 2 Univers 10 mg 1-11 tablets by ity of tablet 00:00: mouth [place] 00 every 8 Medical (eight) Branch hours as needed for Itching or Anxiety. Polyethylen 2019- Yes [id number] 17g Take 1 Univers e Glycol 1-11 Packet by ity of 3350 17 00:00: mouth [place] gram powder 00 every 24 Medi jose c (twenty-fo Branch ur) hours as needed for Constipati on. hydrocortis 2019- Yes [id number] Apply to Univers one 2.5 % 1-11 affected ity of cream 00:00: area(s) 2 [place] (two) Medical times Branch daily. hydrOXYzine 2019- Yes [id number] 20mg Take 2 Univers 10 mg 1-11 tablets by ity of tablet 00:00: mouth [place] 00 every 8 Medical (eight) Branch hours as needed for Itching or Anxiety. Polyethylen 2019- Yes [id number] 17g Take 1 Univers e Glycol 1-11 Packet by ity of 3350 17 00:00: mouth [place] gram powder 00 every 24 Medi jose c (twenty-fo Branch ur) hours as needed for Constipati on. hydrocortis 2019-10 Yes [id number] Apply to Univers one 2.5 % 1-11 affected ity of cream 00:00: area(s) 2 [place] (two) Medical times Branch daily. hydrOXYzine 2019-10 Yes [id number] 20mg Take 2 Univers 10 mg 1-11 tablets by ity of tablet 00:00: mouth [place] 00 every 8 Medical (eight) Branch hours as needed for Itching or Anxiety. Polyethylen 2019-10 Yes [id number] 17g Take 1 Univers e Glycol 1-11 Packet by ity of 3350 17 00:00: mouth [place] gram powder 00 every 24 Medi jose c (twenty-fo Branch ur) hours as needed for Constipati on. hydrocortis 2019-10 Yes [id number] Apply to Univers one 2.5 % 1-11 affected ity of cream 00:00: area(s) 2 [place] (two) Medical times Branch daily. hydrOXYzine 2019-10 Yes [id number] 20mg Take 2 Univers 10 mg 1-11 tablets by ity of tablet 00:00: mouth [place] 00 every 8 Medical (eight) Branch hours as needed for Itching or Anxiety. Polyethylen 2019- Yes [id number] 17g Take 1 Univers e Glycol 1-11 Packet by ity of 3350 17 00:00: mouth [place] gram powder 00 every 24 Medi jose c (twenty-fo Branch ur) hours as needed for Constipati on. hydrocortis 2019-10 Yes [id number] Apply to Univers one 2.5 % 1-11 affected ity of cream 00:00: area(s) 2 [place] (two) Medical times Branch daily. hydrOXYzine 2019-10 Yes [id number] 20mg Take 2 Univers 10 mg 1-11 tablets by ity of tablet 00:00: mouth [place] 00 every 8 Medical (eight) Branch hours as needed for Itching or Anxiety. Polyethylen 2019- Yes [id number] 17g Take 1 Univers e Glycol 1-11 Packet by ity of 3350 17 00:00: mouth [place] gram powder 00 every 24 Medi jose c (twenty-fo Branch ur) hours as needed for Constipati on. hydrocortis 2019- Yes [id number] Apply to Univers one 2.5 % 1-11 affected ity of cream 00:00: area(s) 2 [place] 00 (two) Medical times Branch daily. hydrOXYzine 2019-10 Yes [id number] 20mg Take 2 Univers 10 mg 1-11 tablets by ity of tablet 00:00: mouth [place] 00 every 8 Medical (eight) Branch hours as needed for Itching or Anxiety. Polyethylen 2019-10 Yes [id number] 17g Take 1 Univers e Glycol 1-11 Packet by ity of 3350 17 00:00: mouth [place] gram powder 00 every 24 Medi jose c (twenty-fo Branch ur) hours as needed for Constipati on. triamcinolo 2019- 2020- No [id number] Apply to [place] [facility] 10-23 area(s) 2 ity of acetonide 00:00: 05:59 (two) [place] 0.1 % cream 00 :00 times Medical daily for Branch 14 days. triamcinolo 2019- 2020- No [id number] Apply to [place] [facility] 10-23 area(s) 2 ity of acetonide 00:00: 05:59 (two) [place] 0.1 % cream 00 :00 times Medical daily for Branch 14 days. triamcinolo 2019- 2020- No [id number] Apply to [place] [facility] 10-23 area(s) 2 ity of acetonide 00:00: 05:59 (two) [place] 0.1 % cream 00 :00 times Medical daily for Branch 14 days. KCL 2019- 2020- No 40meq 40 mEq, Univers (KLOR-CON - 11-10 Oral, ONCE ity of M20) tablet 16:15: 16:23 NOW, 1 [place] 40 mEq 00 :00 dose, [facility] 08/22/20 Branch at 1015, Routine HYDROmorpho 2019-10 Yes 1mg 1 mg, Unive rs ne 1-10 Oral, ity of (DILAUDID) 15:07: Q6HPRN, [place] tablet 1 mg 53 Starting [facility] 08/22/20 at 0907, Until Discontinu ed, Routine, Pain (scale 7-10) hydrocortis 2019-10 Yes Topical Uni vers one 2.5 % 1-10 (Apply To ity o f cream 02:00: Affected [place] 00 Areas), Medical BID, First Branch dose on [facility] 08/21/20 at 2000, Until Discontinu ed, Routine triamcinolo 2019-10 Yes Topical, Un toi ne 1-10 BID, First ity of acetonide 02:00: dose on [place] (TRIDERM) [address] [facility] Medical 0.1 % cream 08/21/20 at Br anch 2000, Until Discontinu ed, Routine hydrOXYzine 2019-10 Yes 20mg 20 mg, Univ ers (ATARAX) 09 Oral, ity of tablet 20 17:39: Q8HPRN, [place] mg 12 Starting Medical [facility] 08/21/20 at 1139, Until Discontinu ed, Routine, Itching, Anxiety sennosides- 2019-10 Yes 1{tbl} 1 tablet, Univers docusate 10-21 Oral, ity of sodium 15:00: DAILY, [place] (SENOKOT-S) 00 First dose Me dical 8.6-50 mg on [facility] per tablet 08/21/20 at 1 tablet 0900, Until Discontinu ed, Routine hydrocortis 2019-10 2020- No Topical Un toi one 1 % 10-21 (Apply To ity of cream 15:00: 22:54 Affected [place] 00 :48 Areas), Medical DAILY, Branch First dose on [facility] 08/21/20 at 0900, Until Discontinu ed, Routine venlafaxine 2019-10 Yes 150mg 150 mg, Un toi XR (EFFEXOR 09 Oral, TID, it y of XR) 24 hr 14:00: First [place] capsule [address] [facility] Medica l mg 08/21/20 at Branch 0800, [...] 59 :43 Starting Medica l mg [facility] 08/21/20 at 0656, Until Fri08/21/20 at 1139, Routine, Itching, Mild Rash, Congestion /Allergies , alternate with hydroxyzin e hydrOXYzine 2019-10 No 10mg 10 mg, Uni vers (ATARAX) 10-21 Oral, ity of tablet 10 10:20: 12:57 Q6HPRN, [place] mg 22 :12 Starting Medical [facility] 08/21/20 at 0420, Until Fri08/21/20 at [...] 1 ity o f 09:30: 09:14 dose, [facility] 00 :00 08/21/20 at [facility] 0330, Branch Routine Polyethylen 2019-10 Yes 17g 17 g, Unive rs e Glycol 10-21 Oral, ity of 3350 08:29: [id number], [place] (MIRALAX) 09 Starting Medica l powder 17 g [facility] 08/21/20 at 0229, Until Discontinu ed, Routine, Constipati on lanolin 2019-10 Yes Topical, Univer s alcohol-mo- 10-21 PRN, ity of w.pet-ceres 08:26: [place] (EUCERIN[place] [address] [facility] cream 08/21/20 at Branch 0226, Until [...] of 40 mg 08:22: 00:00 daily with [place] capsule 59 :00 breakfast. Medica l Branch [...] 1-3) sotalol 2019-10 2020- [facility] ([facility]ET[facility] 10-21 mouth ity of 240 mg 07:43: 00:00 every 12 [place] tablet 30 :00 (twelve) Medical hours. Branch blood sugar Yes Use to [facility] ers diagnostic 4-25 check ity of (FREESTYLE 00:00: blood [place] LITE 00 glucose Medical STRIPS) 4-5 times Branch strip daily. blood sugar Yes Use to [facility] ers diagnostic 4-25 check ity of (FREESTYLE 00:00: blood [place] LITE 00 glucose Medical STRIPS) 4-5 times Branch strip daily. blood sugar Yes Use to [facility] ers diagnostic 4-25 check ity of (FREESTYLE 00:00: blood [place] LITE 00 glucose Medical STRIPS) 4-5 times Branch strip daily. blood sugar Yes Use to [facility] ers diagnostic 4-25 check ity of [...] 13:00:00 148 mm[Hg] Univer sity of pressure [place] [facility] Diastolic blood 2021-08-22 13:00:00 84 mm[Hg] Unive rsity of pressure [place] [facility] Heart rate 2021-08-22 13:00:00 103 /min Universi ty [facility] Respiratory rate 2021-08-22 13:00:00 18 /min Univ ersity of [facility] Branch Oxygen saturation in 2021-08-22 13:00:00 95 /min University of Arterial blood by [facility] [place] Pulse oximetry Branch Body temperature 2021-08-22 12:22:00 36.72 [place] Univ ersity of [facility] Branch Systolic blood 2020-12-17 18:35:00 139 mm[Hg] Univer sity of pressure [place] [facility] Diastolic blood 2020-12-17 18:35:00 87 mm[Hg] Unive rsity of pressure [place] [facility] Heart rate 2020-12-17 18:35:00 110 /min Universi ty [facility] Body temperature 2020-12-17 18:35:00 37.72 [place] [facility] ersity of [facility] Branch Respiratory rate 2020-12-17 18:35:00 18 /min Univ ersity of [facility] Branch Oxygen saturation in 2020-12-17 18:35:00 93 /min University of Arterial blood by [facility] [place] Pulse oximetry Branch Body height 2020-12-12 08:21:00 180.3 cm Universi ty [facility] [place] [facility] Body weight 2020-12-12 08:21:00 103.42 kg Universi ty [facility] [place] [facility] BMI 2020-12-12 08:21:00 31.80 kg/m2 Universi ty [facility] [place] [facility] Systolic blood 2020-12-17 18:35:00 139 mm[Hg] Univer sity of pressure [place] [facility] Diastolic blood 2020-12-17 18:35:00 87 mm[Hg] Unive rsity of pressure [place] [facility] Heart rate 2020-12-17 18:35:00 110 /min Universi ty [facility] [place] [facility] Body temperature 2020-12-17 18:35:00 37.72 [place] Univ ersity of [place] [facility] Respiratory rate 2020-12-17 18:35:00 18 /min Univ ersity of [place] [facility] Oxygen saturation in 2020-12-17 18:35:00 93 /min University of Arterial blood by [employer] Pulse oximetry Branch Body height 2020-12-12 08:21:00 180.3 cm Universi ty [facility] [place] [facility] Body weight 2020-12-12 08:21:00 103.42 kg Universi ty [facility] [place] [facility] BMI 2020-12-12 08:21:00 31.80 kg/m2 Universi ty [facility] [place] [facility] Systolic blood 2020-08-23 19:27:00 140 mm[Hg] Univer sity of pressure [place] [facility] Diastolic blood 2020-08-23 19:27:00 79 mm[Hg] Unive rsity of pressure [place] [facility] Heart rate 2020-08-23 19:27:00 99 /min Universi ty [facility] [place] [facility] Body temperature 2020-08-23 19:27:00 36 [place] Univ ersity of [place] [facility] Respiratory rate 2020-08-23 19:27:00 18 /min Univ ersity of [place] [facility] Oxygen saturation in 2020-08-23 19:27:00 93 /min University of Arterial blood by [employer] Pulse oximetry Branch Body weight 2020-08-21 07:20:00 104.962 kg Universi ty [facility] [place] [facility] BMI 2020-08-21 07:20:00 32.27 kg/m2 Universi ty [facility] [place] [facility] Systolic blood 2020-08-23 19:27:00 140 mm[Hg] Univer sity of pressure [place] [facility] Diastolic blood 2020-08-23 19:27:00 79 mm[Hg] [facility] [place] [facility] of pressure [facility] Heart rate 2020-08-23 19:27:00 99 /min [facility] Body temperature 2020-08-23 19:27:00 36 [place] [facility] Respiratory rate 2020-08-23 19:27:00 18 /min [facility] Oxygen saturation in 2020-08-23 19:27:00 93 /min [facility] Arterial blood by [facility] [place] Pulse oximetry [place] Body weight 2020-08-21 07:20:00 104.962 kg [facility] BMI 2020-08-21 07:20:00 32.27 kg/m2 [facility] Procedures Procedure Date / Time Performing Clinician Source Performed POCT GLUCOSE (AUTOMATED) 2020-12-17 15:42:00 Harrison, Premal G Uni [facility] BASIC METABOLIC PANEL 2020-12-17 10:45:00 Paul Bean [facility] (NA, K, CL, CO2, GLUCOSE, Kaley Medica l Branch BUN, CREATININE, CA) CBC WITH DIFF 2020-12-17 10:45:00 Paul Bean [facility] POCT GLUCOSE (AUTOMATED) 2020-12-17 02:36:00 [facility] XR TIBIA FIBULA 2 VW LEFT 2020-12-16 23:38:00 Paul Bean [facility] POCT GLUCOSE (AUTOMATED) 2020-12-16 23:20:00 Harrison, [facility] ([facility]OMATED) 2020-12-16 20:10:00 Harrison, [facility]SE (AUTOMATED) 2020-12-16 14:43:00 Harrison, [facility] BASIC METABOLIC PANEL 2020-12-16 13:51:00 Paul Bean [facility] (NA, K, CL, CO2, GLUCOSE, Kalye Medica l Branch BUN, CREATININE, CA) CBC WITH DIFF 2020-12-16 13:51:00 Paul Bean [facility] POCT GLUCOSE (AUTOMATED) 2020-12-16 04:00:00 Harrison, Premal G Uni versity of [facility] POCT GLUCOSE (AUTOMATED) 2020-12-16 00:14:00 Harrison, Premal G Uni versity of [facility] CT CHEST PULMONARY 2020-12-15 22:29:38 Paul Bean [facility] ANGIOGRAM [facility] POCT GLUCOSE (AUTOMATED) 2020-12-15 19:26:00 Harrison, Premal G Uni versity of [facility] POCT GLUCOSE (AUTOMATED) 2020-12-15 15:13:00 Hunter, [facility] ROUTINE & RHYTHM 2020-12-15 14:25:27 Cailin Romo [facility] STRIP [facility] Branch MAGNESIUM 2020-12-15 12:01:00 Paul Bean Sivakumar [facility] BASIC METABOLIC PANEL 2020-12-15 12:01:00 Paul Bean [facility] (NA, K, CL, CO2, GLUCOSE, [place] Medica l Branch BUN, CREATININE, CA) CBC WITH DIFF 2020-12-15 12:01:00 Paul Bean [facility] POCT GLUCOSE (AUTOMATED) 2020-12-15 03:57:00 Harrison, Premal G Uni versity of [facility] POCT GLUCOSE (AUTOMATED) 2020-12-14 23:31:00 Harrison, Premal G Uni versity of [facility] POCT GLUCOSE (AUTOMATED) 2020-12-14 19:08:00 Harrison, Premal G Uni versity of [facility] POCT GLUCOSE (AUTOMATED) 2020-12-14 15:11:00 Harrison, Premal G Uni versity of [facility] POCT GLUCOSE (AUTOMATED) 2020-12-14 02:36:00 Harrison, Premal G Uni versity of [facility] POCT GLUCOSE (AUTOMATED) 2020-12-13 23:32:00 Harrison, Premal G Uni versity of [facility] POCT GLUCOSE (AUTOMATED) 2020-12-13 18:08:00 Harrison, Premal G Uni versity of [facility] BASIC METABOLIC PANEL 2020-12-13 15:39:00 Paul Bean [facility] (NA, K, CL, CO2, GLUCOSE, [place] Medica l Branch BUN, CREATININE, CA) CBC WITH DIFF 2020-12-13 15:39:00 Paul Bean [facility] POCT GLUCOSE (AUTOMATED) 2020-12-13 14:06:00 Harrison, Premal G Uni versity of [facility] POCT GLUCOSE (AUTOMATED) 2020-12-13 03:07:00 Harrison, Premal G Uni versity of [facility] POCT GLUCOSE (AUTOMATED) 2020-12-12 23:52:00 Harrison, Premal G Uni versity of [facility] POCT GLUCOSE (AUTOMATED) 2020-12-12 20:28:00 Harrison, Premal G Uni versity of [facility] POCT GLUCOSE (AUTOMATED) 2020-12-12 19:14:00 Harrison, Premal G Uni versity of [facility] POCT GLUCOSE (AUTOMATED) 2020-12-12 14:33:00 Harrison, Premal G Uni versity of [facility] MAGNESIUM 2020-12-12 08:58:00 Paul Bean [facility] BASIC METABOLIC PANEL 2020-12-12 08:58:00 Paul Bean [facility] (NA, K, CL, CO2, GLUCOSE, [place] [facility] BUN, CREATININE, CA) CBC WITH DIFF 2020-12-12 08:58:00 Paul Bean [facility] US ABDOMEN LIMITED 2020-12-12 06:32:[address] [facility] POCT GLUCOSE (AUTOMATED) 2020-12-12 03:40:00 Harrison, Premal G Uni versity of [facility] POCT GLUCOSE (AUTOMATED) 2020-12-12 00:06:00 Harrison, Premal G Uni versity [facility] XR HIPS 3 VW LEFT 2020-12-11 20:20:00 Paul Bean [facility] HB ECG ROUTINE & RHYTHM 2020-12-11 20:04:06 [facility] STRIP [facility] VITAMIN B6, PLASMA 2020-12-11 19:17:00 Vikas [facility] POCT GLUCOSE (AUTOMATED) 2020-12-11 19:06:00 Rene Harrison [facility] CREATINE KINASE 2020-12-11 18:22:00 Parvez Clarisse [facility] VITAMIN B12, LEVEL 2020-12-11 18:22:00 Vikas [facility] FOLATE 2020-12-11 18:22:00 Vikas [facility] THYROID STIMULATING 2020-12-11 18:22:00 [facility] PROCALCITONIN 2020-12-11 18:22:00 Vikas [facility] VITAMIN B1 (THIAMINE), 2020-12-11 18:22:00 Vikas [facility] WHOLE BLOOD [facility] CT HEAD WO CONTRAST 2020-12-11 14:07:35 Sweetie Stout [facility] URINALYSIS 2020-12-11 13:44:00 Singer Paco [facility] URINE CULTURE 2020-12-11 13:44:00 Singer [facility] COVID-19 (ID NOW RAPID 2020-12-11 12:31:00 Paco Lacey [facility] TESTING) [facility] LAB ONLY COVID 2020-12-11 12:31:00 Paco Lacey [facility] XR CHEST 1 VW 2020-12-11 12:07:24 Singer [facility] BLOOD CULTURE SCREEN 2020-12-11 12:02:00 Paco Lacey [facility] MAGNESIUM 2020-12-11 12:02:00 [facility] F[facility] SERUM 2020-12-11 12:02:00 Vikas [facility] COMP. METABOLIC PANEL 2020-12-11 12:02:[address] [facility] ([id number]) Medical Branch CBC WITH DIFF 2020-12-11 12:02:00 Singer [facility] LACTIC ACID WHOLE BLOOD 2020-12-11 12:02:00 Singer Paco [facility] BLOOD CULTURE SCREEN 2020-12-11 11:42:00 Paco Lacey [facility] EMERGENCY SERVICES 2020-12-11 06:01:00 Doctor Unassnadya, [facility] AGREEMENTS AND [place] [facility] AUTHORIZATIONS HOSPITAL ADMISSION 2020-12-11 06:01:00 Doctor Tabitha [facility] Name Medical [place] [facility] - OTHER 2020-11-11 06:01:00 Doctor Tabitha [facility] [place] [facility] - OTHER 2020-10-30 06:01:00 Doctor Tabitha [facility] Name Medical [place] EXTERNAL PROVIDER RECORDS 2020-09-01 06:01:00 Doctor Tabitha [facility] Name Medical [place] POCT GLUCOSE (AUTOMATED) 2020-08-23 18:09:00 Kelly [place] [facility] POCT GLUCOSE (AUTOMATED) 2020-08-23 14:14:00 Kelly [place] [facility] MAGNESIUM 2020-08-23 11:18:00 [place] [facility] BASIC METABOLIC PANEL 2020-08-23 11:18:00 [place] [facility] (NA, K, CL, CO2, GLUCOSE, Medica l Branch BUN, CREATININE, CA) CBC WITH DIFF 2020-08-23 11:18:00 [place] [facility] POCT GLUCOSE (AUTOMATED) 2020-08-23 10:21:00 Kelly [place] [facility] POCT GLUCOSE (AUTOMATED) 2020-08-23 05:55:00 Kelly [place] [facility] POCT GLUCOSE (AUTOMATED) 2020-08-23 03:00:00 Kelly [place] [facility] POCT GLUCOSE (AUTOMATED) 2020-08-22 23:38:00 Stefania Kelly Elias versity [facility] POCT GLUCOSE (AUTOMATED) 2020-08-22 19:04:00 [facility] PO[facility]SE ([facility]OMATED) 2020-08-22 13:49:00 Bety Washingtonmarie Elias versity [facility] MAGNESIUM 2020-08-22 10:10:00 [facility] 2020-08-22 10:10:00 Aguila Melchor [facility] ([id number]) (ALB,T.PRO,[facility] T,BU/BC,ALT,AST,ALK PHOS) BASIC METABOLIC PANEL 2020-08-22 10:10:00 [place], [facility] (NA, K, CL, CO2, GLUCOSE, Medica l Branch BUN, CREATININE, CA) LIPID PANEL ([id number])(TOTAL 2020-08-22 10:10:00 [place], [facility] TRIGLYCERIDES, HDL) CBC WITH DIFF 2020-08-22 10:10:00 [facility] POCT GLUCOSE (AUTOMATED) 2020-08-22 10:10:00 Stefania Kelly Elias [facility] POCT GLUCOSE (AUTOMATED) 2020-08-22 07:13:00 Stefania Kelly Elias [facility] POCT GLUCOSE (AUTOMATED) 2020-08-22 02:24:00 Stefania Kelly Elias [facility] POCT GLUCOSE (AUTOMATED) 2020-08-21 23:40:00 Stefania Kelly Elias versity [facility] POCT GLUCOSE (AUTOMATED) 2020-08-21 18:10:00 Stefania Kelly Elias [facility] POCT GLUCOSE (AUTOMATED) 2020-08-21 13:39:00 Stefania Kelly Elias [facility] ETHANOL 2020-08-21 12:35:00 Jos Quiroz [facility] ACTIVATED PARTIAL 2020-08-21 12:35:00 Stefania [facility] GALV ONLY - SYPHILIS 2020-08-21 12:35:00 Stefania [facility] IGG/IGM [facility] LACTATE DEHYDROGENASE 2020-08-21 10:09:00 [place], [facility] GALV/CLC ONLY - URINE 2020-08-21 10:09:[address] [facility] DRUG (IMMUNOASSAY) - 4 ER Medica l Branch PANEL URINALYSIS 2020-08-21 10:09:00 Ramya, [facility] URINE CULTURE 2020-08-21 10:09:00 [place], [facility] PROCALCITONIN 2020-08-21 10:09:00 Ramya, [facility] POCT GLUCOSE (AUTOMATED) 2020-08-21 09:41:00 Stefania [facility] PROTHROMBIN TIME / INR 2020-08-21 08:32:00 Ramya, [facility] ACTIVATED PARTIAL 2020-08-21 08:32:00 Ramya, [facility] C-REACTIVE PROTEIN 2020-08-21 08:31:00 [place], [facility] HEPATIC FUNCTION PANEL 2020-08-21 08:31:00 [place], [facility] ([id number]) (ALB,T.PRO,BILI [facility] T,BU/BC,ALT,AST,ALK PHOS) BASIC METABOLIC PANEL 2020-08-21 08:31:00 [place], [facility] (NA, K, CL, CO2, GLU[facility], [facility] BUN, CREATININE, CA) SEDIMENTATION RATE 2020-08-21 08:31:00 [place], [facility] CBC WITH DIFF 2020-08-21 08:31:00 Ramya, [facility] GLYCOSYLATED HEMOGLOBIN 2020-08-21 08:31:00 [place], [facility] (A1C) [facility] HIV 1/2 AG-AB WITH REFLEX 2020-08-21 08:31:00 [place], Sarah [facility] [place] [facility] COVID-19 (ID NOW RAPID 2020-08-21 08:20:00 [facility] Medical Branch LAB ONLY COVID 2020-08-21 08:20:00 Haily Bui [place] o [facility] Encounters Start End Encounter Admission Attending Care Care Encounter Source Date/Time Date/Time Type Type Clinicians Facility Department ID 2020-08-21 Inpatient U [facility]IA [facility] [id number] Univers 01:07:00 KELLY cantu [facility] 2021-08-22 2021-08-22 [facility] [id number] Univers 06:21:00 08:02:00 SWEETIE cantu [facility] 2021-08-22 2021-08-22 Emergency [facility] [id number] Univers 06:21:00 08:02:00 Sweetie LOTT [id number] i ty of [place] 4.2.7.2.686 [facility] [id number] [facility] 084 Branch 2021-08-09 2021-08-09 Outpatient ZAKI, [facility] [id number] [facility] 10:27:03 10:27:03 ADRIANA lopez of Medicin e 2020-12-28 2020-12-28 Telephone [facility] 1.2.840.114 [id number] 00:00:00 00:00:00 Calvin H PRIMARY [id number] CARE 4.2.7.2.686 PAVILLION [id number] 2020-12-28 2020-12-28 Telephone [facility] 1.2.840.114 [id number] Univers 00:00:00 00:00:00 Calvin H PRIMARY [id number] it y of CARE 4.2.7.2.686 [facility] [place] [facility] [phone] Or dical 220 Branch 2020-12-19 2020-12-19 Transition Tuan Peters 1.2.840.114 [id number] 00:00:00 00:00:00 of Care Ruchi Braswell [id number] [place] 4.2.7.2.686 [id number] 2020-12-19 2020-12-19 Transition Tuan Peters 1.2.840.114 [id number] Univers 00:00:00 00:00:00 of Care Ruchi Braswell [id number] it y of [place] 4.2.7.2.686 Jennifer pelletier [id number] [facility] 403 Branch 2020-12-11 2020-12-17 [facility] Paco Lacey Ayleen 1.2.840.1 [id number] 05:11:00 16:00:00 Encounter Rene Harrison Monique [id number] [facility] 4.2.7.2.686 [id number] [facility] 2020-12-11 2020-12-17 [facility] Paco Lacey 1.2.840.1 [id number] [facility] [place] 05:11:00 16:00:00 Encounter Rene Harrison Ney [id number] ity [facility] 4.2.7.2.686 [place] [id number] [place] [id number] [place] 2020-12-11 2020-12-[address] [facility] ERT [id number] Univers 05:11:00 05:11:00 PACO cantu [facility] 2020-11-16 2020-11-[address] [facility] ERT [id number] Univers 09:31:00 09:31:00 PACO cantu [facility] 2020-11-11 2020-11-11 Orders Doctor CUI 1.2.840.114 [id number] 00:00:00 00:00:00 Only UnassignedMONIQUE [id number] [place] [facility] 4.2.7.2.686 [id number] 2020-11-11 2020-11-11 Orders Doctor CUI 1.2.840.114 [id number] Univers 00:00:00 00:00:00 Only UnassignedMONIQUE [id number] ity of [place] [facility] 4.2.7.2.686 Jeff as [id number] [address] 2020-11-07 2020-11-07 [facility]phone [facility] [id number] 00:00:00 00:00:00 Sendsiobhan Lott [id number] [place] 4.2.7.2.686 Professio [id number] [address] 2020-11-07 2020-11-07 Telephone [facility] [id number] Univers 00:00:00 00:00:00 Sendil Danitza Lott 350.1.13.10 ity [place]2.7.2.686 [place] [id number] [address] 2020-10-30 2020-10-30 Orders Doctor CUI 1.2.840.114 [id number] 00:00:00 00:00:00 Only Unassigned, MONIQUE 350.1.13.10 [facility] 4.2.7.2.686 [id number] [facility][note 2] 2020-10-30 2020-10-30 Orders Doctor BASILIA 1.2.840.114 [id number] Univers 00:00:00 00:00:00 Only Unassigned, MONIQUE 350.1.13.10 ity of [facility] 4.2.7.2.686 Jeff as [id number] [address] 2020-09-26 2020-09-26 Telephone STONE Mccabe 1.2.840.114 [id number] 00:00:00 00:00:00 [facility] [id number] CLINICS 4.2.7.2.686 [id number] 2020-09-26 2020-09-26 Telephone STONE Mccabe 1.2.840.114 [id number] Univers 00:00:00 00:00:00 [facility] [id number] i ty of CL[place]2.[place] [phone] [address] 2020-09-01 2020-09-01 Orders Doctor BASILIA 1.2.840.114 [id number] 00:00:00 00:00:00 Only Unassigned, MONIQUE 350.1.13.10 [facility] 4.2.7.2.686 [id number] [id number] 2020-09-01 2020-09-01 Orders Doctor BASILIA 1.2.840.114 [id number] Univers 00:00:00 00:00:00 Only Unassigned, MONIQUE 350.1.13.10 ity of [place] [facility] 4.2.7.2.686 Jeff as [id number] [facility] 009 Branch 2020-08-25 2020-08-25 Transition Tuan Peters 1.2.840.114 [id number] 00:00:00 00:00:00 of Care Ruchiliban Garciay 350.1.13.10 [place] 4.2.7.2.686 [id number] 2020-08-25 2020-08-25 Transition Tuan Peters 1.2.840.114 [id number] Univers 00:00:00 00:00:00 of Care Ruchi Garciay 350.1.13.10 it y of [place] 4[place]2.7.2.[place] [id number] [facility] 403 Branch 2020-08-21 2020-08-23 [facility] Ayleen 1.2.840.114 [id number] 01:07:00 18:35:00 Encounter Kelly Amaya 350.1.13.10 [facility] 4.2.7.2.686 [id number] [facility] 2020-08-21 2020-08-23 [facility] Ayleen 1. 2.840.114 [id number] [facility] 01:07:00 18:35:00 Encounter Mukul Gallardo ErynKimmy Dorany 350.1.13. 10 ity of [facility] 4.2.7.2.686 Jeff as [phone] [address] Results Test Description Test Time Test Comments Results Result Comments Source POCT GLUCOSE (AUTOMATED) 2020-12-17 15:43:35 Test Item Value Reference Range Interpretation Comme nts POCT GLU (test code = 5051025317) 129 mg/dL 70-110 H Lab Interpretation (test code = 46482-5) [facility]normal [facility] (NA, K, CL, CO2, GLUCOSE, BUN, CREATININE, CA)2020-12-17 11:45:07 Test Item Value Reference Range Interpretation Comments NA (test code = 137 mmol/L 135-145 3424191787) K (test code = 3.5 mmol/L 3.5-5.0 2759039093) CL (test code = 103 mmol/L 98-108 9066832683) CO2 TOTAL (test code = 26 mmol/L 23-31 9241370226) AGAP (test code = 2-16 2357997001) BUN (test code = 11 mg/dL 7-23 1758127816) GLUCOSE (test code = 175 mg/dL 70-110 H 4558928322) CREATININE (test code = 0.62 mg/dL 0.60-1.25 7973586992) CALCIUM (test code = 9.0 mg/dL 8.6-10.6 8362913907) eGFR Calculation mL/min/1.73m2 (Non-) (test code = 1252377439) eGFR Calculation mL/min/1.73m2 () (test code = 0518457949) JAMES (test code = JAMES) Association of [...] tests). Lab Interpretation Abnormal (test code = 34820-3) [facility] WITH OUDR2822-06-55 11:07:27 Test Item Value Reference Range Interpretation [...] RDW-SD (test code = 45.2 fL 38.5-51.6 18340-3) RDW-CV (test code = 16.9 % 12.1-15.4 H 788-0) PLT (test code = See_Comment H [Automated 777-3) message] The sy stem which generated this result transmitted reference range : 150 - 328 10*3/ ?L. The reference r torito was not used to interpret this result as normal/abnormal . MPV (test code = 8.1 fL 9.8-13.0 L 00080-1) NRBC/100 WBC (test See_Comment [Automat ed code = 2194899642) message] The system which generated this result transmitted reference range : 0.0 - 10.0 /100 WBCs. The refer ence range was not u sed to interpret th is result as normal/abnormal . NRBC x10^3 (test code <0.01 See_Comment [Auto mated = 8041217913) message] The s ystem which generated this result transmitted reference range : 10*3/?L. The reference range was not used to interpret this result as normal/abnormal . GRAN MAT (NEUT) % 72.8 % (test code = 770-8) IMM GRAN % (test code 0.60 % = 9591755795) LYMPH % (test code = 18.4 % 736-9) MONO % (test code = 5.7 % 5905-5) EOS % (test code = 1.8 % 713-8) BASO % (test code = 0.7 % 706-2) GRAN MAT x10^3(ANC) 8.23 10*3/uL 1.99-6.95 H (test code = 0686494587) IMM GRAN x10^3 (test 0.07 10*3/uL 0.00-0.06 H code = 8739508979) LYMPH x10^3 (test code 2.08 10*3/uL 1.09-3.23 = 731-0) MONO x10^3 (test code 0.65 10*3/uL 0.36-1.02 = 742-7) EOS x10^3 (test code = 0.20 10*3/uL 0.06-0.53 711-2) BASO x10^3 (test code 0.08 10*3/uL 0.01-0.09 = 704-7) Lab Interpretation Abnormal (test code = 72306-9) [facility] 06:03:38 Test Item Value Reference Range Interpretation Comments POCT GLU (test code = 9923083794) 75 mg/dL 70-110 Lab Interpretation (test code = Normal 68915-4) [facility], [id number] 00:01:00 Test Item Value Reference Range Interpretation Comments VIT B6 (test code = 13.1 nmol/L 20.0-125.0 L INTERPRE TIVE 85468-4) INFORMATION: Vi tamin B6 (Pyridoxal 5-Phosphate) Pyridoxal 5'-phosphate me asured in a specimen collected follo wing an 8-hour or overnight fast accurately clara keene vitamin B6 nutritional sta tus. Non-fasting spe cimen concentration reflects recent vitamin intake. This test was develo ped and its perform ance characteristics determined by A [facility]. I t has not been cleare d or approved by the [place] Food and Drug Administration. This test was perfor med in a CLIA certifie d laboratory and is intended for cl inical purposes.Perfor med By: [employer] [place] [address] [id number] Director: Namrata Klein MD Lab Interpretation Abnormal (test code = 03706-1) [facility] TIBIA FIBULA 2 VW [id number] 23:57:09 Tricompartmental knee joint osteoarthrosis.XR TIBIA FIBULA [...] No acute fracture or dislocation.IMPRESSIONTricompartmental knee joint osteoarthrosis.[facility] GLUCOSE (AUTOMATED) 2020-12-16 23:27:00 Test Item Value Reference Range Interpretation Comments POCT GLU (test code = 5774740449) 114 mg/dL 70-110 H Lab Interpretation (test code = Abnormal 57172-2) [facility] GLUCOSE (AUTOMATED)2020-12-16 20:12:00 Test Item Value Reference Range Interpretation Comments POCT GLU (test code = 6545059498) 105 mg/dL 70-110 Lab Interpretation (test code = Normal 29246-1) [facility] GLUCOSE (AUTOMATED)2020-12-16 14:44:00 Test Item Value Reference Range Interpretation Comments POCT GLU (test code = 1727113962) 153 mg/dL 70-110 H Lab Interpretation (test code = Abnormal 03014-9) [facility] (NA, K, CL, CO2, GLUCOSE, BUN, CREATININE, CA)2020-12-16 14:23:00 Test Item Value Reference Range Interpretation Comments NA (test code = 138 mmol/L 135-145 0490926024) K (test code = 3.4 mmol/L 3.5-5.0 L 9724181752) CL (test code = 100 mmol/L 98-108 6980957661) CO2 TOTAL (test code = 31 mmol/L 23-31 2378621633) AGAP (test code = 2-16 4715594266) BUN (test code = 11 mg/dL 7-23 1598870454) GLUCOSE (test code = 162 mg/dL 70-110 H 2896402768) CREATININE (test code = 0.64 mg/dL 0.60-1.25 6521751338) CALCIUM (test code = 8.9 mg/dL 8.6-10.6 1916854954) eGFR Calculation mL/min/1.73m2 (Non-) (test code = 6526669170) eGFR Calculation mL/min/1.73m2 () (test code = 3882252956) JAMES (test code = JAMES) Association of [...] tests). Lab Interpretation Abnormal (test code = 33583-0) [facility] WITH [id number] 14:05:00 Test Item Value Reference Range Interpretation [...] RDW-SD (test code = 45.4 fL 38.5-51.6 97550-6) RDW-CV (test code = 17.0 % 12.1-15.4 H 788-0) PLT (test code = See_Comment H [Automated 777-3) message] The sy stem which generated this result transmitted reference range : 150 - 328 10*3/ ?L. The reference r torito was not used to interpret this result as normal/abnormal . MPV (test code = 8.0 fL 9.8-13.0 L 51315-6) NRBC/100 WBC (test See_Comment [Automat ed code = 8421089792) message] The system which generated this result transmitted reference range : 0.0 - 10.0 /100 WBCs. The refer ence range was not u sed to interpret th is result as normal/abnormal . NRBC x10^3 (test code <0.01 See_Comment [Auto mated = 2822532340) message] The s ystem which generated this result transmitted reference range : 10*3/?L. The reference range was not used to interpret this result as normal/abnormal . GRAN MAT (NEUT) % 70.0 % (test code = 770-8) IMM GRAN % (test code 0.70 % = 0374792693) LYMPH % (test code = 20.5 % 736-9) MONO % (test code = 7.1 % 5905-5) EOS % (test code = 1.0 % 713-8) BASO % (test code = 0.7 % 706-2) GRAN MAT x10^3(ANC) 9.44 10*3/uL 1.99-6.95 H (test code = 6214357917) IMM GRAN x10^3 (test 0.09 10*3/uL 0.00-0.06 H code = 9625518209) LYMPH x10^3 (test code 2.76 10*3/uL 1.09-3.23 = 731-0) MONO x10^3 (test code 0.96 10*3/uL 0.36-1.02 = 742-7) EOS x10^3 (test code = 0.13 10*3/uL 0.06-0.53 711-2) BASO x10^3 (test code 0.10 10*3/uL 0.01-0.09 H = 704-7) Lab Interpretation Abnormal (test code = 09946-6) [facility] - [facility] # [id number] 13:01:00 Test Item Value Reference Range Interpretation Comments Blood Culture-Aerobic No organisms No growth Previo us (test code = 90743-2) isolated prelim inary verified result was Culture In Progress on 12/11/2020 at 100 1 CSTPrevious preliminary verified result was No growth a t 24 hours on 12/12/2020 at 070 1 CSTPrevious preliminary verified result was No growth a t 48 hours on 12/13/2020 at 070 1 CSTPrevious preliminary verified result was No growth a t 72 hours on 12/14/2020 at 070 1 [employer] Blood No organisms No growth Previous Culture-Anaerobic isolated preliminar y (test code = 93339-9) verifi ed result was Culture In Progress on 12/11/2020 at 100 1 CSTPrevious preliminary verified result was No growth a t 24 hours on 12/12/2020 at 070 1 CSTPrevious preliminary verified result was No growth a t 48 hours on 12/13/2020 at 070 1 CSTPrevious preliminary verified result was No growth a t 72 hours on 12/14/2020 at 070 1 [employer] Lab Interpretation Normal (test code = 06370-9) [facility] Culture - Peripheral # [id number] 13:01:00 Test Item Value Reference Range Interpretation Comments Blood Culture-Aerobic No organisms No growth Previo us (test code = 75820-7) isolated prelim inary verified result was Culture In Progress on 12/11/2020 at 100 1 CSTPrevious preliminary verified result was No growth a t 24 hours on 12/12/2020 at 070 1 CSTPrevious preliminary verified result was No growth a t 48 hours on 12/13/2020 at 070 1 CSTPrevious preliminary verified result was No growth a t 72 hours on 12/14/2020 at 070 1 [employer] Blood No organisms No growth Previous Culture-Anaerobic isolated preliminar y (test code = 07334-5) verifi ed result was Culture In Progress on 12/11/2020 at 100 1 CSTPrevious preliminary verified result was No growth a t 24 hours on 12/12/2020 at 070 1 CSTPrevious preliminary verified result was No growth a t 48 hours on 12/13/2020 at 070 1 CSTPrevious preliminary verified result was No growth a t 72 hours on 12/14/2020 at 070 1 [employer] Lab Interpretation Normal (test code = 85507-5) [facility] GLUCOSE (AUTOMATED)2020-12-16 04:01:00 Test Item Value Reference Range Interpretation Comments POCT GLU (test code = 5387839140) 156 mg/dL 70-110 H Lab Interpretation (test code = Abnormal 68217-6) [facility] GLUCOSE (AUTOMATED)2020-12-16 00:24:00 Test Item Value Reference Range Interpretation Comments POCT GLU (test code = 1164717895) 115 mg/dL 70-110 H Lab Interpretation (test code = Abnormal 35666-7) [facility] PULMONARY [id number] 23:34:55No pulmonary emboli. No interval change in [...] stableappearance of intra and extrahepatic biliary ductal dilatation.[facility] GLUCOSE (AUTOMATED)2020-12-15 19:28:00 Test Item Value Reference Range Interpretation Comments POCT GLU (test code = 4398926933) 140 mg/dL 70-110 H Lab Interpretation (test code = Abnormal 60651-7) [facility] 15:26:00 Test Item Value Reference Range Interpretation Comments MAGNESIUM (test code = 2681404836) 2.2 mg/dL 1.7-2.4 Lab Interpretation (test code = Normal 86315-4) [facility] GLUCOSE (AUTOMATED)2020-12-15 15:15:00 Test Item Value Reference Range Interpretation Comments POCT GLU (test code = 8913848565) 181 mg/dL 70-110 H Lab Interpretation (test code = Abnormal 75082-6) [facility] METABOLIC PANEL (NA, K, CL, CO2, GLUCOSE, BUN, CREATININE, CA)2020-12-15 13:07:00 Test Item Value Reference Range Interpretation Comments NA (test code = 136 mmol/L 135-145 1834666761) K (test code = 3.6 mmol/L 3.5-5.0 6917936963) CL (test code = 96 mmol/L 98-108 L 6880068166) CO2 TOTAL (test code = 29 mmol/L 23-31 3293140631) AGAP (test code = 2-16 9413170726) BUN (test code = 12 mg/dL 7-23 9848660459) GLUCOSE (test code = 183 mg/dL 70-110 H 1099329698) CREATININE (test code = 0.70 mg/dL 0.60-1.25 2149265522) CALCIUM (test code = 9.2 mg/dL 8.6-10.6 4317958407) eGFR Calculation mL/min/1.73m2 (Non-) (test code = 6032127171) eGFR Calculation mL/min/1.73m2 () (test code = 0473998381) JAMES (test code = JAMES) Association of [...] tests). Lab Interpretation Abnormal (test code = 13960-8) [facility] WITH [id number] 12:32:00 Test Item Value Reference Range Interpretation Comments WBC (test code = See_Comment H [Automated 8990-2) message] The system which generated this result [...] RDW-SD (test code = 44.4 fL 38.5-51.6 35125-1) RDW-CV (test code = 17.7 % 12.1-15.4 H 788-0) PLT (test code = See_Comment H [Automated 777-3) message] The system which generated this result transmit ronan reference range : 150 - 328 10*3/ ?L. The reference range was not u sed to interpret th is result as normal/abnormal . MPV (test code = 8.1 fL 9.8-13.0 L 59917-4) NRBC/100 WBC (test See_Comment [Automat ed code = 1205910278) message] The system which generated this result transmit ronan reference range : 0.0 - 10.0 /100 WBCs. The reference range was not used to interpret this result as normal/abnormal . NRBC x10^3 (test code <0.01 See_Comment [Auto mated = 6251780958) message] The system which generated this result transmit ronan reference range : 10*3/?L. The reference range was not used to interpret this result as normal/abnormal . GRAN MAT (NEUT) % 74.5 % (test code = 770-8) IMM GRAN % (test code 0.70 % = 6637578175) LYMPH % (test code = 17.4 % 736-9) MONO % (test code = 6.8 % 5905-5) EOS % (test code = 0.2 % 713-8) BASO % (test code = 0.4 % 706-2) GRAN MAT x10^3(ANC) 11.99 10*3/uL 1.99-6.95 H (test code = 8097008823) IMM GRAN x10^3 (test 0.11 10*3/uL 0.00-0.06 H code = 1894436152) LYMPH x10^3 (test code 2.80 10*3/uL 1.09-3.23 = 731-0) MONO x10^3 (test code 1.10 10*3/uL 0.36-1.02 H = 742-7) EOS x10^3 (test code = 0.03 10*3/uL 0.06-0.53 L 711-2) BASO x10^3 (test code 0.06 10*3/uL 0.01-0.09 = 704-7) Lab Interpretation Abnormal (test code = 74801-2) [facility] GLUCOSE (AUTOMATED)2020-12-15 04:16:00 Test Item Value Reference Range Interpretation Comments POCT GLU (test code = 5742127979) 200 mg/dL 70-110 H Lab Interpretation (test code = Abnormal 00040-7) [facility] (THIAMINE), WHOLE [id number] 00:30:00 Test Item Value Reference Range Interpretation Comments Vitamin B1, Whole 136 nmol/L 70-180 INTERPRETI VE INFORMATION: Blood (test code = Vitamin B 1, Whole Blood 15760-1) This assay júnior ures the concentration o f thiamine diphosphate (TD P), the primary active form of vitamin B1. Nick roximately 90 percent of v itamin B1 present in whol e blood is TDP. Thiamine a nd thiamine monoph osphate, which comprise the remaining 10 pe rcent, are not measured. T his test was developed a nd its performance characteristics determined by A [facility]. I t has not been cleared or approved by the [place] Food and Drug Administration. This test was performed i n a CLIA certified labor atory and is intended for clinical purposes.Perfor med By: [facility] [place] [address] [id number] aboratory Director: Namrata Klein MD [facility] GLUCOSE (AUTOMATED)2020-12-14 23:35:00 Test Item Value Reference Range Interpretation Comments POCT GLU (test code = 8845980048) 151 mg/dL 70-110 H Lab Interpretation (test code = Abnormal 57307-6) [facility] GLUCOSE (AUTOMATED)2020-12-14 19:19:00 Test Item Value Reference Range Interpretation Comments POCT GLU (test code = 5176800218) 193 mg/dL 70-110 H Lab Interpretation (test code = Abnormal 50734-0) [facility] GLUCOSE (AUTOMATED)2020-12-14 15:22:00 Test Item Value Reference Range Interpretation Comments POCT GLU (test code = 3689099658) 221 mg/dL 70-110 H Lab Interpretation (test code = Abnormal 00334-2) [facility] GLUCOSE (AUTOMATED)2020-12-14 02:37:00 Test Item Value Reference Range Interpretation Comments POCT GLU (test code = 1596757165) 210 mg/dL 70-110 H Lab Interpretation (test code = Abnormal 24346-7) [facility] GLUCOSE (AUTOMATED)2020-12-13 23:33:00 Test Item Value Reference Range Interpretation Comments POCT GLU (test code = 4193813424) 182 mg/dL 70-110 H Lab Interpretation (test code = Abnormal 62261-4) [facility] GLUCOSE (AUTOMATED)2020-12-13 18:09:00 Test Item Value Reference Range Interpretation Comments POCT GLU (test code = 0498227845) 150 mg/dL 70-110 H Lab Interpretation (test code = Abnormal 60714-5) [facility] METABOLIC PANEL (NA, K, CL, CO2, GLUCOSE, BUN, CREATININE, CA)2020-12-13 16:27:00 Test Item Value Reference Range Interpretation Comments NA (test code = 136 mmol/L 135-145 5785963197) K (test code = 3.7 mmol/L 3.5-5.0 1997726959) CL (test code = 96 mmol/L 98-108 L 5282228637) CO2 TOTAL (test code = 29 mmol/L 23-31 7037065511) AGAP (test code = 2-16 3158737928) BUN (test code = 6 mg/dL 7-23 L 8863127710) GLUCOSE (test code = 212 mg/dL 70-110 H 9063489843) CREATININE (test code = 0.61 mg/dL 0.60-1.25 3781092584) CALCIUM (test code = 9.5 mg/dL 8.6-10.6 6287440715) eGFR Calculation mL/min/1.73m2 (Non-) (test code = 4736600783) eGFR Calculation mL/min/1.73m2 () (test code = 8566088801) JAMES (test code = JAMES) Association of [...] tests). Lab Interpretation Abnormal (test code = 76984-0) [facility] WITH [id number] 16:10:00 Test Item Value Reference Range Interpretation Comments WBC (test code = See_Comment H [Automated 2585-2) message] The sy stem which generated this result transmitted reference range : 4.20 - 10.70 10*3/?L. The reference range was not used to interpret this result as normal/abnormal . RBC (test code = See_Comment H [Automated 989-8) message] The sy stem which generated this [...] RDW-SD (test code = 43.3 fL 38.5-51.6 27461-8) RDW-CV (test code = 16.2 % 12.1-15.4 H 788-0) PLT (test code = See_Comment H [Automated 777-3) message] The sy stem which generated this result transmitted reference range : 150 - 328 10*3/ ?L. The reference r torito was not used to interpret this result as normal/abnormal . MPV (test code = 8.2 fL 9.8-13.0 L 55018-7) NRBC/100 WBC (test See_Comment [Automat ed code = 8458978322) message] The system which generated this result transmitted reference range : 0.0 - 10.0 /100 WBCs. The refer ence range was not u sed to interpret th is result as normal/abnormal . NRBC x10^3 (test code <0.01 See_Comment [Auto mated = 3633018537) message] The s ystem which generated this result transmitted reference range : 10*3/?L. The reference range was not used to interpret this result as normal/abnormal . GRAN MAT (NEUT) % 86.2 % (test code = 770-8) IMM GRAN % (test code 0.70 % = 7915961276) LYMPH % (test code = 10.2 % 736-9) MONO % (test code = 2.5 % 5905-5) EOS % (test code = 0.1 % 713-8) BASO % (test code = 0.3 % 706-2) GRAN MAT x10^3(ANC) 9.61 10*3/uL 1.99-6.95 H (test code = 5240831165) IMM GRAN x10^3 (test 0.08 10*3/uL 0.00-0.06 H code = 7788470623) LYMPH x10^3 (test code 1.14 10*3/uL 1.09-3.23 = 731-0) MONO x10^3 (test code 0.28 10*3/uL 0.36-1.02 L = 742-7) EOS x10^3 (test code = <0.03 0.06-0.53 L 711-2) BASO x10^3 (test code 0.03 10*3/uL 0.01-0.09 = 704-7) Lab Interpretation Abnormal (test code = 44124-8) [facility]2020-12-13 14:16:00 Test Item Value Reference Range Interpretation Comments POCT GLU (test code = 3516712506) 236 mg/dL 70-110 H Lab Interpretation (test code = Abnormal 60711-9) [facility] COVID [id number] 04:58:00COVID DMT InterpretationInterpretation/Recommendations: Molecular NAAT Tests for [...] COVID-19 testing the patient has had at [facility], including molecular NAAT testing (more commonly known as PCR testing and Rapid ID Now testing) and antibody testing. It does not take into account any testingthat a patient has had outside of the [facility] medical record. [facility] LABORATORY SERVICESCOVID VosbnjrEYTH-JfF-2 Rapid ID NOW (no units) ? ? Date ? Value ? 12/11/2020 ? Not Detected ? ? ? 11/16/2020 ? Not Detected ? ? ? 08/21/2020 ? Not Detected ? [facility]Un[facility] 2020-12-13 03:11:00 Test Item Value Reference Range Interpretation Comments POCT GLU (test code = 8790357264) 171 mg/dL 70-110 H Lab Interpretation (test code = Abnormal 35449-8) [facility] GLUCOSE (AUTOMATED)2020-12-13 00:00:00 Test Item Value Reference Range Interpretation Comments POCT GLU (test code = 2169824614) 118 mg/dL 70-110 H Lab Interpretation (test code = Abnormal 55542-2) [facility] GLUCOSE (AUTOMATED)2020-12-12 20:29:00 Test Item Value Reference Range Interpretation Comments POCT GLU (test code = 5888708296) 173 mg/dL 70-110 H Lab Interpretation (test code = Abnormal 53213-8) [facility] Hospital[facility] ABDOMEN [id number] 19:56:17 1. ?Hepatic steatosis. However, limited evaluation [...] main portal veinwasevaluated with color Doppler imaging. Laundry Machine Mechanic images were obtainedfor the record. COMPARISON: [...] portal vein wasevaluated with color Doppler imaging. Laundry Machine Mechanic images wereobtainedfor the record.COMPARISON: Ultrasound abdomen 11/17/2028. [...] reviewed this study and agree with the abovereport.[facility]2020-12-12 19:24:00 Test Item Value Reference Range Interpretation Comments POCT GLU (test code = 7732224047) 230 mg/dL 70-110 H Lab Interpretation (test code = Abnormal 65649-8) [facility] CHEST 1 [id number] 15:16:46 Low lung volumes with mild perihilar [...] reviewed this study and agree with theabove report.[facility]2020-12-12 14:34:00 Test Item Value Reference Range Interpretation Comments POCT GLU (test code = 3821260989) 225 mg/dL 70-110 H Lab Interpretation (test code = Abnormal 56762-7) [facility] HospitalURINE [id number] 13:28:00 Test Item Value Reference Range Interpretation Comments URINE CULTURE (test < 10,000 CFU/mL mixed code = 630-4) aerobic organisms - suggests endogenous microbial contamination [facility] (NA, K, CL, CO2, GLUCOSE, BUN, CREATININE, CA)2020-12-12 10:05:00 Test Item Value Reference Range Interpretation Comments NA (test code = 136 mmol/L 135-145 3475621318) K (test code = 3.5 mmol/L 3.5-5.0 0592182160) CL (test code = 100 mmol/L 98-108 5972522704) CO2 TOTAL (test code = 31 mmol/L 23-31 5206788938) AGAP (test code = 2-16 4298325878) BUN (test code = 7 mg/dL 7-23 7445354013) GLUCOSE (test code = 259 mg/dL 70-110 H 5042514654) CREATININE (test code = 0.63 mg/dL 0.60-1.25 7639984880) CALCIUM (test code = 8.5 mg/dL 8.6-10.6 L 2048939249) eGFR Calculation mL/min/1.73m2 (Non-) (test code = 0709006038) eGFR Calculation mL/min/1.73m2 () (test code = 9012035542) JAMES (test code = JAMES) Association of [...] tests). Lab Interpretation Abnormal (test code = 86177-4) [facility] HospitalMagnesium [id number] 10:05:00 Test Item Value Reference Range Interpretation Comments MAGNESIUM (test code = 0838492033) 1.9 mg/dL 1.7-2.4 Lab Interpretation (test code = Normal 95875-3) [facility] with [id number] 09:48:00 Test Item Value Reference Range Interpretation Comments WBC (test code = See_Comment [Automated 7431-2) message] The sy stem which generated this result transmitted reference range : 4.20 - 10.70 10*3/?L. The reference range was not used to interpret this result as normal/abnormal . RBC (test code = See_Comment [Automated 069-9) message] The sy stem which generated this [...] RDW-SD (test code = 46.0 fL 38.5-51.6 48776-9) RDW-CV (test code = 16.1 % 12.1-15.4 H 788-0) PLT (test code = See_Comment H [Automated 777-3) message] The sy stem which generated this result transmitted reference range : 150 - 328 10*3/ ?L. The reference r torito was not used to interpret this result as normal/abnormal . MPV (test code = 8.6 fL 9.8-13.0 L 55825-2) NRBC/100 WBC (test See_Comment [Automat ed code = 8251558699) message] The system which generated this result transmitted reference range : 0.0 - 10.0 /100 WBCs. The refer ence range was not u sed to interpret th is result as normal/abnormal . NRBC x10^3 (test code <0.01 See_Comment [Auto mated = 4336444446) message] The s ystem which generated this result transmitted reference range : 10*3/?L. The reference range was not used to interpret this result as normal/abnormal . GRAN MAT (NEUT) % 70.2 % (test code = 770-8) IMM GRAN % (test code 0.30 % = 4627302768) LYMPH % (test code = 18.8 % 736-9) MONO % (test code = 5.0 % 5905-5) EOS % (test code = 5.2 % 713-8) BASO % (test code = 0.5 % 706-2) GRAN MAT x10^3(ANC) 6.05 10*3/uL 1.99-6.95 (test code = 0166566098) IMM GRAN x10^3 (test 0.03 10*3/uL 0.00-0.06 code = 3592032175) LYMPH x10^3 (test code 1.62 10*3/uL 1.09-3.23 = 731-0) MONO x10^3 (test code 0.43 10*3/uL 0.36-1.02 = 742-7) EOS x10^3 (test code = 0.45 10*3/uL 0.06-0.53 711-2) BASO x10^3 (test code 0.04 10*3/uL 0.01-0.09 = 704-7) Lab Interpretation Abnormal (test code = 91207-3) [facility] GLUCOSE (AUTOMATED)2020-12-12 03:42:00 Test Item Value Reference Range Interpretation Comments POCT GLU (test code = 196 mg/dL 70-110 H Notifi ed Provider 5099392357) Lab Interpretation (test Abnormal code = 64321-2) [facility] HospitalFOLATE2021-[facility] 02:24:00 Test Item Value Reference Range Interpretation Comments FOLATE SER (test code = 7735669578) 5.8 ng/mL 3.0-20.0 Lab Interpretation (test code = Normal 31662-0) [facility] HospitalVITAMIN B12, [id number] 00:55:00 Test Item Value Reference Range Interpretation Comments VIT B12 (test code = 844 pg/mL 240-930 9686353635) JAMES (test code = JAMES) Biotin has been reported to cause a positive bias, interpret results relative to patient's use of biotin. Lab Interpretation (test Normal code = 71120-8) [facility] GLUCOSE (AUTOMATED)2020-12-12 00:14:00 Test Item Value Reference Range Interpretation Comments POCT GLU (test code = 0616380204) 164 mg/dL 70-110 H Lab Interpretation (test code = Abnormal 14088-1) [facility] HospitalCREATINE [id number] 23:42:00 Test Item Value Reference Range Interpretation Comments CK (test code = 3770581848) <20 33-194 L Lab Interpretation (test code = Abnormal 17556-6) [facility] HospitalTHYROID STIMULATING [id number] 23:17:00 Test Item Value Reference Range Interpretation Comments TSH (test code = See_Comment Biotin has been 5837499336) reported to cau se a negative bias, interpret resul ts relative to johnny bills's use of biotin. [Automated mess age] The system Owlin generated this result transmitted ref erence range: 0.45 - 4 .70 mIU/L. The refe rence range was not u sed to interpret this result as normal/abnor mal. Lab Interpretation (test Normal code = 82651-5) [facility] VW [id number] 21:41:53No appreciable fracture lines. RL: 6200 ICAL [...] No osseous erosions.IMPRESSIONNo appreciable fracture lines.RL: 6200 [facility] 20:00:00 Test Item Value Reference Range Interpretation Comments Procalcitonin (test 0.13 ng/mL <0.07 H code = 9330481634) JAMES (test code = JAMES) INTERPRETATION OF [...] lung abscess/empyema. For further information please refer to:[email or web address] Lab Interpretation Abnormal (test code = 62213-4) [facility]2020-12-11 19:07:00 Test Item Value Reference Range Interpretation Comments POCT GLU (test code = 5652488398) 274 mg/dL 70-110 H Lab Interpretation (test code = Abnormal 52126-4) [facility]2021-[facility] 18:31:00 Test Item Value Reference Range Interpretation Comments MAGNESIUM (test code = 8222779423) 1.9 mg/dL 1.7-2.4 Lab Interpretation (test code = Normal 63563-5) [facility] HospitalFERRITIN [id number] 18:31:00 Test Item Value Reference Range Interpretation Comments FERRITIN (test code = 178.0 ng/mL 18.0-464.0 5305272334) JAMES (test code = JAMES) Biotin has been reported to cause a negative bias, interpret results relative to patient's use of biotin. Lab Interpretation (test Normal code = 10506-1) [facility] HEAD WO [id number] 14:36:47 No acute intracranial abnormality. Dilated ventricles [...] reviewed this study and agree with the abovereport.[facility]URIN[facility]YSIS[facility] 14:28:00 Test Item Value Reference Range Interpretation Comments APPEARANCE (test code = Clear Clear 4418138079) COLOR (test code = Yellow Yellow 3726201794) PH (test code = 4.8-8.0 0118707616) SP GRAVITY (test code = 1.003-1.030 6075739147) GLU U QUAL (test code = 500 mg/dL Normal A 7362711899) BLOOD (test code = Negative Negative 2167388458) KETONES (test code = 5 mg/dL Negative A 4890152964) PROTEIN (test code = Negative Negative 2887-8) UROBILIN (test code = Normal Normal 6881251490) BILIRUBIN (test code = Negative Negative 6684903210) NITRITE (test code = Negative Negative 5426260624) LEUK RYAN (test code = Negative Negative 7453691316) RBC/HPF (test code = See_Comment [Autom ated message] 5258518288) The system Owlin generated this result transmit ronan reference range : 0 - 3 HPF. The refe rence range was not u sed to interpret th is result as normal/abnormal . WBC/HPF (test code = See_Comment [Autom ated message] 6536513109) The system [employer] generated this result transmit ronan reference range : 0 - 5 HPF. The refe rence range was not u sed to interpret th is result as normal/abnormal . BACTERIA (test code = Negative Negative 6423487756) MUCOUS (test code = Slight Negative LPF A 1595311721) SQ EPITH (test code = HPF 1950508644) Lab Interpretation (test Abnormal code = 79184-7) [facility] (ID NOW RAPID TESTING)2020-12-11 13:10:00 Test Item Value Reference Range Interpretation Comments SARS-CoV-2 Rapid ID NOW Not Detected Not Detected (test code = 84256-6) JAMES (test code = JAMES) ID NOW COVID-19 Assay is an isothermal nucleic acid amplification test intended for the qualitative detection of nucleic acid from SARS-CoV-2 viral RNA in nasopharyngeal (PRODUCT ASSEMBLER) specimens. It is used under Emergency Use [...] indicated. Lab Interpretation Normal (test code = 29062-0) [facility]. METABOLIC PANEL (64759)2020-12-11 12:29:00 Test Item Value Reference Range Interpretation Comments NA (test code = 136 mmol/L 135-145 2391882629) K (test code = 3.5 mmol/L 3.5-5.0 1346642955) CL (test code = 95 mmol/L 98-108 L 5383532906) CO2 TOTAL (test code = 35 mmol/L 23-31 H 8177712831) AGAP (test code = 2-16 0651172375) BUN (test code = 9 mg/dL 7-23 1643700142) GLUCOSE (test code = 329 mg/dL 70-110 H 2157556866) CREATININE (test code = 0.72 mg/dL 0.60-1.25 6447751141) TOTAL BILI (test code = 0.6 mg/dL 0.1-1.1 7424133877) CALCIUM (test code = 9.0 mg/dL 8.6-10.6 9255909303) T PROTEIN (test code = 6.8 g/dL 6.3-8.2 2970843554) ALBUMIN (test code = 3.8 g/dL 3.5-5.0 9733740051) ALK PHOS (test code = 288 U/L 34-122 H 6466789926) ALTv (test code = 46 U/L 5-50 1742-6) AST(SGOT) (test code = 38 U/L 13-40 9814636609) eGFR Calculation mL/min/1.73m2 (Non-) (test code = 6946739750) eGFR Calculation mL/min/1.73m2 () (test code = 8087042603) JAMES (test code = JAMES) Association of [...] tests). Lab Interpretation Abnormal (test code = 20091-9) [facility] HospitalLactic Acid Whole [id number] 12:23:00 Test Item Value Reference Range Interpretation Comments LACTIC ACID (test code = 2.09 mmol/L 0.50-2.20 8952606231) Lab Interpretation (test code = Normal 36411-4) [facility] WITH [id number] 12:17:00 Test Item Value Reference Range Interpretation [...] RDW-SD (test code = 44.9 fL 38.5-51.6 54741-1) RDW-CV (test code = 15.9 % 12.1-15.4 H 788-0) PLT (test code = See_Comment H [Automated 777-3) message] The sy stem which generated this result transmitted reference range : 150 - 328 10*3/ ?L. The reference r torito was not used to interpret this result as normal/abnormal . MPV (test code = 8.3 fL 9.8-13.0 L 15621-8) NRBC/100 WBC (test See_Comment [Automat ed code = 3735847729) message] The system which generated this result transmitted reference range : 0.0 - 10.0 /100 WBCs. The refer ence range was not u sed to interpret th is result as normal/abnormal . NRBC x10^3 (test code <0.01 See_Comment [Auto mated = 8591658233) message] The s ystem which generated this result transmitted reference range : 10*3/?L. The reference range was not used to interpret this result as normal/abnormal . GRAN MAT (NEUT) % 77.9 % (test code = 770-8) IMM GRAN % (test code 0.50 % = 0734721910) LYMPH % (test code = 12.2 % 736-9) MONO % (test code = 5.2 % 5905-5) EOS % (test code = 3.7 % 713-8) BASO % (test code = 0.5 % 706-2) GRAN MAT x10^3(ANC) 9.57 10*3/uL 1.99-6.95 H (test code = 6018700044) IMM GRAN x10^3 (test 0.06 10*3/uL 0.00-0.06 code = 3780246990) LYMPH x10^3 (test code 1.50 10*3/uL 1.09-3.23 = 731-0) MONO x10^3 (test code 0.64 10*3/uL 0.36-1.02 = 742-7) EOS x10^3 (test code = 0.46 10*3/uL 0.06-0.53 711-2) BASO x10^3 (test code 0.06 10*3/uL 0.01-0.09 = 704-7) Lab Interpretation Abnormal (test code = 76302-6) [facility] ONLY COVID [id number] 18:43:00COVID DMT InterpretationInterpretation/Recommendations: Molecular NAAT Test Results [...] a nasopharyngeal sample, there is approximately a utk-of-yfptx chance that the patient was infected and [...] aggregate data pooled from the [facility] medical recordincluding both current and prior COVID-19 related testing results for the following [facility]:A. Tests for the Identification of SARS-CoV-2 RNA:SARS-CoV-2 PCR assays including [place] Aptima, [place] Fusion, Barrett RealTime, and OpDemand Xpert Xpress. SARS-CoV-2 Rapid ID NOW by the ID NOW assay. ? B. Tests for the Identification of SARS-CoV-2 Antibodies: Chemiluminescent immunoassays including Access SARS-CoV-2 IgM (DXI 600), ButlrS Pdme-VLWR-HwF-2 IgG (Vitros 5600 and Vitros 3600), and Barrett SARS-CoV-2 IgG (STAMP MACHINE SERVICER I System). These interpretation comments assume that only the above testing was utilized and that the approved acceptable specimen type(s) were used for a given test. These interpretations are autopopulated into [employer] based on computerized algorithms matching an interpretation code number to the patient's set of test results. While a clinical pathologist evaluates the combinations for clinical accuracy, clinical correlation is recommended as it may not take into account very remote prior testing. Furthermore, it does not consider testing a patient may have had outside of the [facility] system. Additionally, it should be noted that the computerized algorithm treats the results for PCR testing and Rapid ID NOW testing (also PCR) synonymously, and thus, refers to both testing methodologies as PCR tests. Given that the sensitivity of [facility]'s Rapid ID NOW testing platform is [...] pathogen panel may be beneficialin this setting. [facility] LABORATORY SERVICESCOVID KrixzmuOOTD-GlV-4 Rapid ID NOW (no units) ? ? Date ? Value ? 08/21/2020 ? Not Detected ? [facility] SERVICESUnNe[facility]2020-08-23 18:25:00 Test Item Value Reference Range Interpretation Comments POCT GLU (test code = 7030447047) 297 mg/dL 70-110 H Lab Interpretation (test code = Abnormal 39323-1) [facility] GLUCOSE (AUTOMATED)2020-08-23 14:25:00 Test Item Value Reference Range Interpretation Comments POCT GLU (test code = 4338794341) 181 mg/dL 70-110 H Lab Interpretation (test code = Abnormal 72054-8) [facility] Metabolic Panel (NA, K, CL, CO2, GLUCOSE, BUN, CREATININE, CA)2020-08-23 11:45:00 Test Item Value Reference Range Interpretation Comments NA (test code = 132 mmol/L 135-145 L 2549034569) K (test code = 4.0 mmol/L 3.5-5 4334063485) CL (test code = 96 mmol/L 98-108 L 4175862814) CO2 TOTAL (test code = 33 mmol/L 23-31 H 4288481145) AGAP (test code = 2-16 3535638486) BUN (test code = 9 mg/dL 7-23 6865967566) GLUCOSE (test code = 176 mg/dL 70-110 H 1286935126) CREATININE (test code = 0.66 mg/dL 0.6-1.25 7678840145) CALCIUM (test code = 8.5 mg/dL 8.6-10.6 L 8867194938) eGFR Calculation mL/min/1.73m2 (Non-) (test code = 8654099075) eGFR Calculation mL/min/1.73m2 () (test code = 8596422687) JAMES (test code = JAMES) Association of [...] tests). Lab Interpretation Abnormal (test code = 63755-1) [facility] HospitalMagnesium [id number] 11:45:00 Test Item Value Reference Range Interpretation Comments MAGNESIUM (test code = 9808454862) 2.0 mg/dL 1.7-2.4 Lab Interpretation (test code = Normal 76333-8) [facility] HospitalCB with [id number] 11:38:00 Test Item Value Reference Range Interpretation Comments WBC (test code = See_Comment [Automated 6590-2) message] The sy stem which generated this result transmitted reference range : 4.20 - 10.70 10*3/?L. The reference range was not used to interpret this result as normal/abnormal . RBC (test code = See_Comment [Automated 979-8) message] The sy stem which [...] RDW-SD (test code = 41.8 fL 38.5-51.6 11437-0) RDW-CV (test code = 14.3 % 12.1-15.4 788-0) PLT (test code = See_Comment H [Automated 777-3) message] The sy stem which generated this result transmitted reference range : 150 - 328 10*3/ ?L. The reference r torito was not used to interpret this result as normal/abnormal . MPV (test code = 8.0 fL 9.8-13 L 57233-5) NRBC/100 WBC (test See_Comment [Automat ed code = 2645367768) message] The system which generated this result transmitted reference range : 0.0 - 10.0 /100 WBCs. The refer ence range was not u sed to interpret th is result as normal/abnormal . NRBC x10^3 (test code <0.01 See_Comment [Auto mated = 3676970982) message] The s ystem which generated this result transmitted reference range : 10*3/?L. The reference range was not used to interpret this result as normal/abnormal . GRAN MAT (NEUT) % 61.5 % (test code = 770-8) IMM GRAN % (test code 2.00 % = 5277578039) LYMPH % (test code = 25.5 % 736-9) MONO % (test code = 6.3 % 5905-5) EOS % (test code = 3.7 % 713-8) BASO % (test code = 1.0 % 706-2) GRAN MAT x10^3(ANC) 5.29 10*3/uL 1.99-6.95 (test code = 0046853276) IMM GRAN x10^3 (test 0.17 10*3/uL 0-0.06 H code = 0251972361) LYMPH x10^3 (test code 2.19 10*3/uL 1.09-3.23 = 731-0) MONO x10^3 (test code 0.54 10*3/uL 0.36-1.02 = 742-7) EOS x10^3 (test code = 0.32 10*3/uL 0.06-0.53 711-2) BASO x10^3 (test code 0.09 10*3/uL 0.01-0.09 = 704-7) Lab Interpretation Abnormal (test code = 02370-7) [facility] GLUCOSE (AUTOMATED)2020-08-23 10:22:00 Test Item Value Reference Range Interpretation Comments POCT GLU (test code = 2612520314) 164 mg/dL 70-110 H Lab Interpretation (test code = Abnormal 99746-5) [facility] GLUCOSE (AUTOMATED)2020-08-23 05:56:00 Test Item Value Reference Range Interpretation Comments POCT GLU (test code = 5190416913) 242 mg/dL 70-110 H Lab Interpretation (test code = Abnormal 65850-1) [facility] GLUCOSE (AUTOMATED)2020-08-23 03:02:00 Test Item Value Reference Range Interpretation Comments POCT GLU (test code = 9753988670) 210 mg/dL 70-110 H Lab Interpretation (test code = Abnormal 62091-1) [facility] GLUCOSE (AUTOMATED)2020-08-22 23:40:00 Test Item Value Reference Range Interpretation Comments POCT GLU (test code = 4513261186) 267 mg/dL 70-110 H Lab Interpretation (test code = Abnormal 29509-0) [facility] GLUCOSE (AUTOMATED)2020-08-22 19:08:00 Test Item Value Reference Range Interpretation Comments POCT GLU (test code = 0079617295) 191 mg/dL 70-110 H Lab Interpretation (test code = Abnormal 01838-7) [facility] GLUCOSE (AUTOMATED)2020-08-22 13:50:00 Test Item Value Reference Range Interpretation Comments POCT GLU (test code = 5568433049) 174 mg/dL 70-110 H Lab Interpretation (test code = Abnormal 47069-8) [facility] HospitalURINE [id number] 12:59:00 Test Item Value Reference Range Interpretation Comments URINE CULTURE (test No aerobic growth (< code = 630-4) 1000 CFU/mL) [facility] HospitalCBC with [id number] 11:28:00 Test Item Value Reference Range Interpretation Comments WBC (test code = See_Comment [Automated 9590-2) message] The sy stem which generated this result transmitted reference range : 4.20 - 10.70 10*3/?L. The reference range was not used to interpret this result as normal/abnormal . RBC (test code = See_Comment L [Automated 289-8) message] The sy stem which generated this [...] RDW-SD (test code = 42.5 fL 38.5-51.6 70943-4) RDW-CV (test code = 14.5 % 12.1-15.4 788-0) PLT (test code = See_Comment H [Automated 777-3) message] The sy stem which generated this result transmitted reference range : 150 - 328 10*3/ ?L. The reference r torito was not used to interpret this result as normal/abnormal . MPV (test code = 8.0 fL 9.8-13 L 73595-9) NRBC/100 WBC (test See_Comment [Automat ed code = 5713177388) message] The system which generated this result transmitted reference range : 0.0 - 10.0 /100 WBCs. The refer ence range was not u sed to interpret th is result as normal/abnormal . NRBC x10^3 (test code <0.01 See_Comment [Auto mated = 2050631718) message] The s ystem which generated this result transmitted reference range : 10*3/?L. The reference range was not used to interpret this result as normal/abnormal . GRAN MAT (NEUT) % 69.1 % (test code = 770-8) IMM GRAN % (test code 2.20 % = 1880780353) LYMPH % (test code = 20.9 % 736-9) MONO % (test code = 5.8 % 5905-5) EOS % (test code = 1.0 % 713-8) BASO % (test code = 1.0 % 706-2) GRAN MAT x10^3(ANC) 6.51 10*3/uL 1.99-6.95 (test code = 1047728132) IMM GRAN x10^3 (test 0.21 10*3/uL 0-0.06 H code = 5904109777) LYMPH x10^3 (test code 1.97 10*3/uL 1.09-3.23 = 731-0) MONO x10^3 (test code 0.55 10*3/uL 0.36-1.02 = 742-7) EOS x10^3 (test code = 0.09 10*3/uL 0.06-0.53 711-2) BASO x10^3 (test code 0.09 10*3/uL 0.01-0.09 = 704-7) BASO STIPPLING (test Present A code = 703-9) BANDS (test code = Increased A 5171790319) TOXIC CHANGES (test Present A code = 803-7) Lab Interpretation Abnormal (test code = 64469-6) [facility] Metabolic Panel (NA, K, CL, CO2, GLUCOSE, BUN, CREATININE, CA)2020-08-22 11:12:00 Test Item Value Reference Range Interpretation Comments NA (test code = 135 mmol/L 135-145 6603549514) K (test code = 3.6 mmol/L 3.5-5 2280635312) CL (test code = 99 mmol/L 98-108 9853693887) CO2 TOTAL (test code = 31 mmol/L 23-31 9248734175) AGAP (test code = 2-16 7553577889) BUN (test code = 9 mg/dL 7-23 1849888894) GLUCOSE (test code = 198 mg/dL 70-110 H 9126712004) CREATININE (test code = 0.72 mg/dL 0.6-1.25 7573799227) CALCIUM (test code = 8.3 mg/dL 8.6-10.6 L 9472645477) eGFR Calculation mL/min/1.73m2 (Non-) (test code = 4174410988) eGFR Calculation mL/min/1.73m2 () (test code = 0234711829) JAMES (test code = JAMES) Association of [...] tests). Lab Interpretation Abnormal (test code = 86938-5) [facility] HospitalMagnesium [id number] 11:12:00 Test Item Value Reference Range Interpretation Comments MAGNESIUM (test code = 8269455463) 2.0 mg/dL 1.7-2.4 Lab Interpretation (test code = Normal 54982-2) [facility] HospitalLipid Panel (Total Cholesterol, Triglycerides, HDL) - [id number] 11:12:00 Test Item Value Reference Range Interpretation Comments CHOL (test code = 155 mg/dL 120-200 7842806823) HDL (test code = 42 mg/dL >40 0602958074) HDLC RATIO (test code = See_Comment [Au tomated message] 8452519534) The system Owlin generated this result transmit ronan reference range : <=5.0. The refe rence range was not u sed to interpret th is result as normal/abnormal . TRIG (test code = 186 mg/dL 30-170 H 6707528963) LDL CHOL (test code = 76 mg/dL See_Comment [Auto mated message] 41330-3) The system [employer] generated this result transmit ronan reference range : <=160. The refe rence range was not u sed to interpret th is result as normal/abnormal . VLDL (test code = 37 mg/dL 5-60 2189251452) Lab Interpretation (test Abnormal code = 87764-7) [facility] HospitalHEPATIC FUNCTION PANEL (50437) (ALB,T.PRO,BILI T,BU/BC,ALT,AST,ALK PHOS)2020-08-22 11:12:00 Test Item Value Reference Range Interpretation Comments TOTAL BILI (test code = 4172176983) 0.6 mg/dL 0.1-1.1 BILI UNCON (test code = 4379157548) 0.2 mg/dL 0.1-1.1 BILI CONJ (test code = 1094423184) 0.0 mg/dL 0-0.3 T PROTEIN (test code = 2652541334) 6.0 g/dL 6.3-8.2 L ALBUMIN (test code = 3433265699) 2.8 g/dL 3.5-5 L ALK PHOS (test code = 8704074661) 222 U/L 34-122 H ALTv (test code = 1742-6) 27 U/L 5-50 AST(SGOT) (test code = 8728130731) 30 U/L 13-40 Lab Interpretation (test code = Abnormal 28450-4) [facility] GLUCOSE (AUTOMATED)2020-08-22 10:11:00 Test Item Value Reference Range Interpretation Comments POCT GLU (test code = 9120615160) 196 mg/dL 70-110 H Lab Interpretation (test code = Abnormal 15930-9) [facility] GLUCOSE (AUTOMATED)2020-08-22 07:15:00 Test Item Value Reference Range Interpretation Comments POCT GLU (test code = 6397969103) 183 mg/dL 70-110 H Lab Interpretation (test code = Abnormal 80894-4) [facility] GLUCOSE (AUTOMATED)2020-08-22 02:30:00 Test Item Value Reference Range Interpretation Comments POCT GLU (test code = 3266311776) 295 mg/dL 70-110 H Lab Interpretation (test code = Abnormal 04107-9) [facility] GLUCOSE (AUTOMATED)2020-08-21 23:46:00 Test Item Value Reference Range Interpretation Comments POCT GLU (test code = 6593090282) 258 mg/dL 70-110 H Lab Interpretation (test code = Abnormal 01197-2) [facility] HospitalC-REACTIVE [id number] 18:50:00 Test Item Value Reference Range Interpretation Comments CRP (test code = 9336380395) 15.5 mg/dL <0.8 H Lab Interpretation (test code = Abnormal 36129-2) [facility]2020-08-21 18:21:00 Test Item Value Reference Range Interpretation Comments POCT GLU (test code = 2600918868) 297 mg/dL 70-110 H Lab Interpretation (test code = Abnormal 13436-5) [facility] HospitalETHANOL2020-11-09 16:24:00 Test Item Value Reference Range Interpretation Comments ALCOHOL (test code = <10 mg/dL 0609464318) JAMES (test code = Toxic Greater than or JAMES) equal to 80 mg/dL. NOTE: Whole blood values are approximately 10% to 15% lower than serum and plasma. [facility] HospitalGAL/CLC ONLY - URINE DRUG (IMMUNOASSAY) - 4 ER [id number] 15:36:00 Test Item Value Reference Range Interpretation Comments AMPHET (test code = Negative Negative 0924842866) Cocaine Metabolite (test Negative Negative code = 2465067485) OPIATES (test code = Presumptive Positive Negative A 3282306918) THC (test code = Negative Negative 8263722160) AJMES (test code = JAMES) Urine Drug Cutoff Ranges Amphetamine: ? 1,000 ng/mLCocaine: ? 150 ng/mLOpiates: ? 300 ng/mLCannabinoids: ?50 ng/mL The results are to be used only for medical (i.e., treatment) purposes. Unconfirmed screening results must not be used for non-medical purposes (e.g., employment testing, legal testing). Lab Interpretation (test Abnormal code = 05471-5) [facility] ONLY - SYPHILIS [id number] 15:04:00 Test Item Value Reference Range Interpretation Comments Syphilis IgG/IgM (test Non-reactive Non-reactive code = 84979-5) JAMES (test code = JAMES) Non-reactive - No serologic evidence of T. pallidum infection. Cannot exclude incubating or early syphilis. Submit a second specimen in 2-4 weeks if syphilis is clinically suspected. Equivocal - Further testing to follow. Reactive - Further testing to follow. Lab Interpretation (test Normal code = 00240-8) [facility] HospitalUrinalysis2020-11-09 14:52:00 Test Item Value Reference Range Interpretation Comments APPEARANCE (test code = Clear Clear 4855721678) COLOR (test code = Yellow Yellow 6737526721) PH (test code = 4.8-8.0 9125765237) SP GRAVITY (test code = 1.003-1.030 5922000569) GLU U QUAL (test code = 500 mg/dL Normal A 4957077120) BLOOD (test code = Negative Negative 7830225566) KETONES (test code = 20 mg/dL Negative A 9212928811) PROTEIN (test code = Negative Negative 2887-8) UROBILIN (test code = Normal Normal 4528207968) BILIRUBIN (test code = Negative Negative 0587284085) NITRITE (test code = Negative Negative 6974903985) LEUK RYAN (test code = Negative Negative 1010822948) RBC/HPF (test code = <1 See_Comment [Autom ated message] 8722786623) The system Ow[employer] generated this result transmit ronan reference range : 0 - 3 HPF. The refe rence range was not u sed to interpret th is result as normal/abnormal . WBC/HPF (test code = See_Comment [Autom ated message] 0893639951) The system [employer] generated this result transmit ronan reference range : 0 - 5 HPF. The refe rence range was not u sed to interpret th is result as normal/abnormal . BACTERIA (test code = Negative Negative 8410459958) MUCOUS (test code = Slight Negative LPF A 5877915514) Lab Interpretation (test Abnormal code = 98433-8) [facility] HospitalACTIVATED PARTIAL THRMPLAS [id number] 13:45:00 Test Item Value Reference Range Interpretation Comments APTT Patient (test code = See_Comment [ Automated message] 3173-2) The system Ow[employer] generated this result transmitted ref erence range: 26 - 36 Seconds. The re ference range was not u sed to interpret this result as normal/abnor mal. Lab Interpretation (test Normal code = 16388-4) [facility]PO[facility]2020-08-21 13:45:00 Test Item Value Reference Range Interpretation Comments POCT GLU (test code = 1876584714) 246 mg/dL 70-110 H Lab Interpretation (test code = Abnormal 04441-2) [facility] HospitalHIV 1/2 AG-AB WITH [id number] 12:32:00 Test Item Value Reference Range Interpretation Comments HIV Negative Negative Semi-quantitative (test code = 56006-2) JAMES (test code = Non-reactive for HIV-1 JAMES) antigen and HIV-1/HIV-2 antibodies. ?No laboratory evidence of HIV infection. ?Repeat in 2-4 weeks if acute HIV infection is suspected. [facility] HospitalCBC WITH [id number] 12:18:00 Test Item Value Reference Range Interpretation [...] RDW-SD (test code = 44.4 fL 38.5-51.6 59392-6) RDW-CV (test code = 14.5 % 12.1-15.4 788-0) PLT (test code = See_Comment H [Automated 777-3) message] The sy stem which generated this result transmitted reference range : 150 - 328 10*3/ ?L. The reference r torito was not used to interpret this result as normal/abnormal . MPV (test code = 8.5 fL 9.8-13 L 54539-3) NRBC/100 WBC (test See_Comment [Automat ed code = 2874298197) message] The system which generated this result transmitted reference range : 0.0 - 10.0 /100 WBCs. The refer ence range was not u sed to interpret th is result as normal/abnormal . NRBC x10^3 (test code <0.01 See_Comment [Auto mated = [id number]) message] The s ystem which generated this result transmitted reference range : 10*3/?L. The reference range was not used to interpret this result as normal/abnormal . GRAN MAT (NEUT) % 90.4 % (test code = 770-8) IMM GRAN % (test code 1.30 % = 5350435685) LYMPH % (test code = 7.1 % 736-9) MONO % (test code = 0.5 % 5905-5) EOS % (test code = 0.1 % 713-8) BASO % (test code = 0.6 % 706-2) GRAN MAT x10^3(ANC) 7.74 10*3/uL 1.99-6.95 H (test code = 9172198074) IMM GRAN x10^3 (test 0.11 10*3/uL 0-0.06 H code = 7521419984) LYMPH x10^3 (test code 0.61 10*3/uL 1.09-3.23 L = 731-0) MONO x10^3 (test code 0.04 10*3/uL 0.36-1.02 L = 742-7) EOS x10^3 (test code = <0.03 0.06-0.53 L 711-2) BASO x10^3 (test code 0.05 10*3/uL 0.01-0.09 = 704-7) POLYCHROMASIA (test 2+ See_Comment [Automa ronan code = 63223-5) message] The system which generated this result transmitted reference range : 2+. The referen ce range was not u sed to interpret th is result as normal/abnormal . BANDS (test code = Increased A 2603468265) Lab Interpretation Abnormal (test code = 97885-0) [facility] 11:48:00 Test Item Value Reference Range Interpretation Comments Procalcitonin (test 0.36 ng/mL <0.07 H code = 0200810784) JAMES (test code = JAMES) INTERPRETATION OF [...] lung abscess/empyema. For further information please refer to:[email or web address] Lab Interpretation Abnormal (test code = 74136-7) [facility]LAGA[facility] [id number] 10:53:00 Test Item Value Reference Range Interpretation Comments LDH (test code = 9271519813) 351 U/L 300-600 Lab Interpretation (test code = Normal 90047-6) [facility]SED[facility] [id number] 10:07:00 Test Item Value Reference Range Interpretation Comments ESR (test code = See_Comment H [Automated message] 0000324601) The system [employer] generated this result transmitted ref erence range: 0 - 10 m m/HR. The reference r torito was not used to interpret this result as normal/abnor mal. Lab Interpretation (test Abnormal code = 70693-9) [facility]AUT[facility]ATED)2020-08-21 09:45:00 Test Item Value Reference Range Interpretation Comments POCT GLU (test code = 7898242812) 287 mg/dL 70-110 H Lab Interpretation (test code = Abnormal 46370-7) [facility]Glycosylated Hemoglobin (A1C)2020-08-21 09:29:00 Test Item Value Reference Range Interpretation Comments HGB A1C (test code = 4548-4) 9.8 % 4-6 H Lab Interpretation (test code = Abnormal 34328-9) [facility]COVID[facility] (ID NOW RAPID TESTING)2020-08-21 09:13:00 Test Item Value Reference Range Interpretation Comments SARS-CoV-2 Rapid ID NOW Not Detected Not Detected (test code = 42471-6) JAMES (test code = JAMES) ID NOW COVID-19 Assay is an isothermal nucleic acid amplification test intended for the qualitative detection of nucleic acid from SARS-CoV-2 viral RNA in nasopharyngeal (PRODUCT ASSEMBLER) specimens. It is used under Emergency Use [...] indicated. Lab Interpretation Normal (test code = 19517-9) [facility] HospitalProthrombin Time / [id number] 08:59:00 Test Item Value Reference Range Interpretation Comments PROTIME PATIENT (test See_Comment H [Auto mated message] code = 5964-2) The system [employer] generated this result transmitted ref erence range: 10.1 - 1 2.6 Seconds. The reference range was not used to int erpret this result as normal/abnormal . INR (test code = 6301-6) Nor mal INR <1.1; Warfarin Therap eutic range 2.0 to 3. 0 or 2.5 to 3.5, dep ending upon the indica tions. Lab Interpretation (test Abnormal code = 98745-8) [facility] HospitalaPTT2020-11-09 08:59:00 Test Item Value Reference Range Interpretation Comments APTT Patient (test code = See_Comment [ Automated message] 3173-2) The system [employer] generated this result transmitted ref erence range: 26 - 36 Seconds. The re ference range was not u sed to interpret this result as normal/abnor mal. Lab Interpretation (test Normal code = 13443-9) [facility]BAS[facility]OLIC PANEL (NA, K, CL, CO2, GLUCOSE, BUN, CREATININE, CA)2020-08-21 08:52:00 Test Item Value Reference Range Interpretation Comments NA (test code = 136 mmol/L 135-145 1803720820) K (test code = 4.3 mmol/L 3.5-5 2881821849) CL (test code = 104 mmol/L 98-108 8014072956) CO2 TOTAL (test code = 24 mmol/L 23-31 5449834049) AGAP (test code = 2-16 1277228383) BUN (test code = 8 mg/dL 7-23 9272666143) GLUCOSE (test code = 308 mg/dL 70-110 H 0087163890) CREATININE (test code = 0.72 mg/dL 0.6-1.25 6244202148) CALCIUM (test code = 7.8 mg/dL 8.6-10.6 L 5136410334) eGFR Calculation mL/min/1.73m2 (Non-) (test code = 6069300492) eGFR Calculation mL/min/1.73m2 () (test code = 5893339863) JAMES (test code = JAMES) Association of [...] tests). Lab Interpretation Abnormal (test code = 40200-7) [facility] HospitalHEPATIC FUNCTION PANEL (09350) (ALB,T.PRO,BILI T,BU/BC,ALT,AST,ALK PHOS)2020-08-21 08:52:00 Test Item Value Reference Range Interpretation Comments TOTAL BILI (test code = 6851514734) 0.8 mg/dL 0.1-1.1 BILI UNCON (test code = 4392411459) 0.3 mg/dL 0.1-1.1 BILI CONJ (test code = 5249733836) 0.0 mg/dL 0-0.3 T PROTEIN (test code = 7960632656) 5.7 g/dL 6.3-8.2 L ALBUMIN (test code = 6653440145) 2.7 g/dL 3.5-5 L ALK PHOS (test code = 6051301039) 245 U/L 34-122 H ALTv (test code = 1742-6) 37 U/L 5-50 AST(SGOT) (test code = 1208310826) 43 U/L 13-40 H Lab Interpretation (test code = Abnormal 95476-8) [facility]
--- NOTE | 2022-06-12 04:13 | ER ---
Nurse's Notes [facility] Name: Kiel Ngo Age: 71 yrs Sex: Male : 1950 Arrival Date: 06/12/2022 Time: 03:47 Bed 16 Private MD: Diagnosis: Low back pain Presentation: 06/12 03:47 Chief complaint: EMS states: Chronic Lower back and right leg pain getting worse. ke1 Coronavirus screen: Vaccine status: Patient reports being unvaccinated. Ebola Screen: No symptoms or risks identified at this time. Initial Sepsis Screen: Does the patient meet any 2 criteria? No. Patient's initial sepsis screen is negative. Does the patient have a suspected source of infection? No. Patient's initial sepsis screen is negative. Risk Assessment: Do you want to hurt yourself or someone else? Patient reports no desire to harm self or others. 03:47 Method Of Arrival: EMS: [facility] ke1 03:47 Acuity: JOZEF 3 ke1 04:01 Onset of symptoms was June 07, 2022. ke1 Triage Assessment: 03:50 General: Appears in no apparent distress. Behavior is appropriate for age. Pain: ke1 Complains of pain in lower back Pain radiates to right leg Pain currently is 10 out of 10 on a pain scale. at worst was 10 out of 10 on a pain scale. level that patient reports is acceptable is 5 out of 10 on a pain scale. Quality of pain is described as aching, shooting, Alleviated by medications. Historical: - Allergies: 03:49 Demerol; ke1 03:49 metformin; ke1 03:49 Morphine; ke1 - PMHx: 03:49 Atrial fibrillation; chronic back pain; Chronic right leg pain; neuropathy; ke1 - PSHx: 03:49 back sx; PANCREAS SX; R. Ankle SX; ke1 - Immunization history:: Client reports having NOT received the Covid vaccine. - Social history:: Smoking status: Patient denies any tobacco usage or history of. - Family history:: not pertinent. Screenin:51 Abuse screen: Denies threats or abuse. Nutritional screening: No deficits noted. ke1 Tuberculosis screening: No symptoms or risk factors identified. Fall Risk No fall in past 12 months (0 pts). Secondary diagnosis (15 points) impaired mobility, No IV (0 pts). Ambulatory Aid- None/Bed Rest/Nurse Assist (0 pts). Gait- Impaired (20 pts.). Mental Status- Oriented to own ability (0 pts). Total Chow Fall Scale indicates High Risk Score (45 or more points). Fall prevention measures have been instituted. Side Rails Up X 2 Placed Close to Nursing Station Frequent Obs/Assessments Occuring As available patient and family educated on Fall Prevention Program and Strategies. Assessment: 04:18 Pain: Complains of pain in lower back Pain currently is 10 out of 10 on a pain scale. ke1 04:59 Reassessment: Waiting on ambulance transportation to be discharged. ke1 Vital Signs: 03:47 BP 133 / 86; Pulse 122; Resp 19; Temp 99.1; Pulse Ox 96% on R/A; Weight 83.91 kg; ke1 Height 5 ft. 11 in. (180.34 cm); Pain 10/10; 03:47 Body Mass Index 25.80 (83.91 kg, 180.34 cm) ke1 ED Course: 03:47 Patient arrived in ED. 03:47 Brandon Kan RN is Primary Nurse. ke1 03:49 Triage completed. ke1 03:50 Stu Banerjee MD is Attending Physician. chetan 03:52 Arm band placed on. ke1 04:00 Side rails up X2. ke1 04:00 Inserted saline lock: 22 gauge in left antecubital area, using aseptic technique. ke1 Administered Medications: 04:19 Drug: NS 0.9% 500 ml Route: IV; Rate: bolus; Site: left antecubital; ke1 04:19 Drug: Dilaudid (HYDROmorphone) 2 mg Route: IVP; Site: left antecubital; ke1 04:19 Drug: Zofran (Ondansetron) 4 mg Route: IVP; Site: left antecubital; ke1 04:19 Drug: Benadryl (diphenhydrAMINE) 50 mg Route: IVP; Site: left antecubital; ke1 Outcome: 04:11 Discharge ordered by . chetan 06:58 Patient left the ED. 2 Signatures: Letty Mccormack RN RN kl Anderson, Corey, MD MD cha Westbrook, MyKena 2 Ebrottie, Kouassi, RN RN ke1
--- NOTE | 2022-06-12 04:13 | EDPHYS ---
Physician Documentation [facility] Name: Kiel Ngo Age: 71 yrs Sex: Male : 1950 Arrival Date: 06/12/2022 Time: 03:47 Bed 16 Private MD: ED Physician Stu Banerjee HPI: 06/12 04:05 This 71 yrs old Male presents to ER via EMS with complaints of chronic back chetan pain. 04:05 This 71 yrs old Male presents to ER via EMS with complaints of chronic back chetan pain. 04:05 The patient presents with pain that is chronic, and decreased range of motion. The chetan symptoms are located in the low back. Onset: The symptoms/episode began/occurred 2 day(s) ago. The pain does not radiate. Associated signs and symptoms: The patient has no apparent associated signs or symptoms. The problem was sustained from a chronic condition. Modifying factors: The patient symptoms are alleviated by nothing, the patient symptoms are aggravated by movement. Severity of symptoms: At their worst the symptoms were mild, moderate, in the emergency department the symptoms are unchanged. Historical: - Allergies: 03:49 Demerol; ke1 03:49 metformin; ke1 03:49 Morphine; ke1 - PMHx: 03:49 Atrial fibrillation; chronic back pain; Chronic right leg pain; neuropathy; ke1 - PSHx: 03:49 back sx; PANCREAS SX; R. Ankle SX; ke1 - Immunization history:: Client reports having NOT received the Covid vaccine. - Social history:: Smoking status: Patient denies any tobacco usage or history of. - Family history:: not pertinent. ROS: 04:05 Constitutional: Negative for fever, chills, and weight loss, Eyes: Negative for injury, chetan pain, redness, and discharge, ENT: Negative for injury, pain, and discharge, Neck: Negative for injury, pain, and swelling, Cardiovascular: Negative for chest pain, palpitations, and edema, Respiratory: Negative for shortness of breath, cough, wheezing, and pleuritic chest pain, Abdomen/GI: Negative for abdominal pain, nausea, vomiting, diarrhea, and constipation, : Negative for injury, bleeding, discharge, and swelling, MS/Extremity: Negative for injury and deformity, Skin: Negative for injury, rash, and discoloration, Neuro: Negative for headache, weakness, numbness, tingling, and seizure, Psych: Negative for depression, anxiety, suicide ideation, homicidal ideation, and hallucinations, Allergy/Immunology: Negative for hives, rash, and allergies, Endocrine: Negative for neck swelling, polydipsia, polyuria, polyphagia, and marked weight changes, Hematologic/Lymphatic: Negative for swollen nodes, abnormal bleeding, and unusual bruising. 04:05 Back: Positive for decreased range of motion, pain at rest, of the lumbar area. Exam: 04:05 Constitutional: This is a well developed, well nourished patient who is awake, alert, chetan and in no acute distress. Head/Face: Normocephalic, atraumatic. Eyes: Pupils equal round and reactive to light, extra-ocular motions intact. Lids and lashes normal. Conjunctiva and sclera are non-icteric and not injected. Cornea within normal limits. Periorbital areas with no swelling, redness, or edema. ENT: Nares patent. No nasal discharge, no septal abnormalities noted. Tympanic membranes are normal and external auditory canals are clear. Oropharynx with no redness, swelling, or masses, exudates, or evidence of obstruction, uvula midline. Mucous membranes moist. Neck: Trachea midline, no thyromegaly or masses palpated, and no cervical lymphadenopathy. Supple, full range of motion without nuchal rigidity, or vertebral point tenderness. No Meningismus. Chest/axilla: Normal chest wall appearance and motion. Nontender with no deformity. No lesions are appreciated. Cardiovascular: Regular rate and rhythm with a normal S1 and S2. No gallops, murmurs, or rubs. Normal PMI, no JVD. No pulse deficits. Respiratory: Lungs have equal breath sounds bilaterally, clear to auscultation and percussion. No rales, rhonchi or wheezes noted. No increased work of breathing, no retractions or nasal flaring. Abdomen/GI: Soft, non-tender, with normal bowel sounds. No distension or tympany. No guarding or rebound. No evidence of tenderness throughout. Male : Normal genitalia with no discharge or lesions. Skin: Warm, dry with normal turgor. Normal color with no rashes, no lesions, and no evidence of cellulitis. MS/ Extremity: Pulses equal, no cyanosis. Neurovascular intact. Full, normal range of motion. Neuro: Awake and alert, GCS 15, oriented to person, place, time, and situation. Cranial nerves II-XII grossly intact. Motor strength 5/5 in all extremities. Sensory grossly intact. Cerebellar exam normal. Normal gait. Psych: Awake, alert, with orientation to person, place and time. Behavior, mood, and affect are within normal limits. 04:05 Back: pain, that is mild, that is moderate, ROM is painful, decreased, normal spinal alignment noted, CVA tenderness, is absent, vertebral tenderness, is not appreciated, muscle spasm, is not present. Vital Signs: 03:47 BP 133 / 86; Pulse 122; Resp 19; Temp 99.1; Pulse Ox 96% on R/A; Weight 83.91 kg; ke1 Height 5 ft. 11 in. (180.34 cm); Pain 10/10; 03:47 Body Mass Index 25.80 (83.91 kg, 180.34 cm) ke1 MDM: 03:50 Patient medically screened. chetan 04:05 Differential diagnosis: chronic back pain, Fracture Pyelonephritis sprain. Data chetan reviewed: vital signs, nurses notes. Data interpreted: Pulse oximetry: on room air is 96 %. 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 Administered Medications: 04:19 Drug: NS 0.9% 500 ml Route: IV; Rate: bolus; Site: left antecubital; ke1 04:19 Drug: Dilaudid (HYDROmorphone) 2 mg Route: IVP; Site: left antecubital; ke1 04:19 Drug: Zofran (Ondansetron) 4 mg Route: IVP; Site: left antecubital; ke1 04:19 Drug: Benadryl (diphenhydrAMINE) 50 mg Route: IVP; Site: left antecubital; ke1 Disposition Summary: 06/12/22 04:11 Discharge Ordered Location: Home chetan Problem: new chetan Symptoms: have improved chetan Condition: Stable chetan Diagnosis - Low back pain chetan Followup: chetan - With: Private Physician - When: 2 - 3 days - Reason: Recheck today's complaints, Continuance of care, Re-evaluation by your physician Discharge Instructions: - Discharge Summary Sheet chetan - Acute Back Pain, Adult chetan - Chronic Back Pain chetan - Musculoskeletal Pain chetan Forms: - Medication Reconciliation Form chetan - Thank You Letter chetan - Antibiotic Education chetan - Prescription Opioid Use chetan Signatures: Stu Banerjee MD MD cha Ebrottie, Kouassi RN RN ke1
[2022-06-12] MEDS ORDERED: DIPHENHYDRAMINE 50 MG/ML VIAL ONE (04:19)
[2022-06-12] MEDS ORDERED: ONDANSETRON 4 MG/2 ML VIAL ONE (04:20)
[2022-06-12] MEDS ORDERED: NA CHLORIDE 0.9% 500 ML ONE (04:20)
[2022-06-12] MEDS ORDERED: HYDROMORPHONE HCL 2 MG/ML inj ONE (04:20)
[2022-06-12 07:12] VITALS: BP 133/86; TEMP 99.1; O2SAT 96
== END 2022-06-12 06:58 | disposition home or self-care (01) ==
LOC: ER 03:45
DX: M54.50 Low back pain, unspecified (principal); Z88.5 Allergy status to narcotic agent; Z88.8 Allergy status to other drugs, medicaments and biological substances
CPT/HCPCS: J1200; J1170; J7040; J2405

== ENCOUNTER 2022-06-14 01:57 | Emergency (ER) | payer OTHER ==
--- OUTSIDE RECORDS SUMMARY | 2022-06-14 02:07 | XMS REPORT | Continuity of Care Document ---
:1950 Author Organization [facility] t Address [address] [place] [address] Care Team Providers Name Role Phone JESSE SHETTY Primary Care Physician Unavailable KELLY WASHINGTON Attending Clinician Unavailable SWEETIE STOUT Attending Clinician Unavailable Sweetie Stout MD Attending Clinician ADRIANA HAINES Attending Clinician Unavailable Yolis VILLAREAL, Calvin Shaikh Attending Clinician Ruchi Peters RN Attending Clinician Paco Lacye DO Attending Clinician Rene Harrison MD Attending Clinician Alvarez Kauffman MD Attending Clinician PACO LACEY Attending Clinician Unavailable Doctor Unassigned, [place] Attending Clinician Unavailable Wilder VILLAREAL, Angi K.H. Attending Clinician Jl Mccabe MD Attending Clinician Kelly Washington MD Attending Clinician [phone] Mukul Gaines MD Attending Clinician MUKUL GALLARDO Admitting Clinician Unavailable Rene Harrison MD Admitting Clinician Nicci VILLAREAL Mukul Anand Admitting Clinician Payers Payer Name Policy Type Policy Number Effective Date Expiration Date Tony doe MEDICARE PART A [id number] 2007 \\T\\ B 00:00:00 [employer] INDEMNITY [id number] 2016 00:00:00 MEDICARE PART A [id number] 2014 \\T\\ B - MEDICARE 00:00:00 INDEMNITY/TRADITIO [id number] NAL CHOICE - [employer] 00:00:00 Problems Condition [...] ents Source Name Type Date Date Clinician [place] Propensi Active Rash 2019- Univers ty to 1-10 ity of adverse 00:00: [place] reaction 00 [facility] PEACH DRUG Active Rash 2019- Univers [...] of adverse 00:00: [place] reaction 00 [facility] Glimepir Propensi Active Hives 2011-0 Univer s efren ty to 3-16 ity of adverse 00:00: [place] reaction 00 [facility] Metformi Propensi Active Itching Unive rs [...] Quantity Comments Source Exposure to Not sure [place] of SARS-CoV-2 [place] [facility] (event) Branch History of Chews Tobacco University of tobacco use [place] [facility] History SDOH 2020-11-17 2020-11-17 5 University o f Financial 00:00:00 00:00:00 [place] [facility] History SDOH Food 2020-11-17 2020-11-17 1 Univers ity of Worry 00:00:00 00:00:00 [place] [facility] History SDRI Food 2020-11-17 2020-11-17 1 Univers ity of Scarcity 00:00:00 00:00:00 [place] [facility] History SDOH 2020-11-17 2020-11-17 1 University o f Transport Med 00:00:00 00:00:00 [place] [facility] History SDOH 2020-11-17 2020-11-17 1 University o f Transport Non-Med 00:00:00 00:00:00 [facility] edical Branch Education 2020-11-16 2020-11-16 21 [place] of 00:00:00 00:00:00 [facility] Alcohol intake 2020-11-16 2020-11-16 Ex-drinker [facility] 00:00:00 00:00:00 (finding) [facility] Tobacco use and 2020-08-21 2020-08-21 Former user Universi ty of exposure 00:00:00 00:00:00 [facility] Tobacco Comment 2020-08-21 2020-08-21 quit 10 years Univer sity of 00:00:00 00:00:00 ago, started in [place] Med ical 2nd year of Branch college (~40 years) Alcohol Comment 2020-08-21 2020-08-21 Used to have 2-3 Uni versity of 00:00:00 00:00:00 six-packs of [place] Medica l beer daily x 20 Branch years, quit 2005 History [facility] 2020-08-21 2020-08-21 99 University o f Alcohol Frequency 00:00:00 00:00:00 [place] [facility] ed[facility] History [facility] 2020-08-21 2020-08-21 99 University o f Alcohol Std 00:00:00 00:00:00 [place] [facility] Drinks Branch History [facility] 2020-08-21 2020-08-21 99 [place] o f Alcohol Binge 00:00:00 00:00:00 [facility] al Branch Sex Ass[birth year] Universit y of 00:00:00 00:00:00 [facility] Smoking Status Start Date Stop Date Source Never smoker [facility] Medications Ordered Filled Start Stop [...] by ity of tablet 22:47: mouth at [place] 18 bedtime. Medical Branch HYDROmorpho Yes 4mg [...] by ity of tablet 22:47: mouth at [place] 18 bedtime. Medical Branch HYDROmorpho 2020-0 Yes [...] 0845, Until Discontinu ed, Routine amLODIPine Yes [id number] 10mg Take 1 Univers 10 mg 3-07 tablet by ity of tablet 00:00: mouth [place] 00 daily. Medical Branch clotrimazol 0 Yes [id number] Apply to Univers e 1 % 3-07 face/ears, ity of topical 00:00: armpits, [place] cream 00 pannus and Medical back/any Branch other rash twice a day fluocinonid 2020-0 Yes [id number] Apply to Univers e 0.05 % 3-07 scalp ity of solution 00:00: twice a day Medical Branch triamcinolo Yes [id number] Apply to Univers ne 3-07 back, ity of acetonide 00:00: armpits [place] 0.1 % cream 00 and other Med ical affected Branch areas twice daily, please mix with clotrimazo le hydrOXYzine Yes [id number] 10mg Take 1 Univers 10 mg 3-07 tablet by ity of tablet 00:00: mouth 2 (two) Medical times Branch daily. amLODIPine 0 Yes [id number] 10mg Take 1 Univers 10 mg 3-07 tablet by ity of tablet 00:00: mouth [place] 00 daily. Medical Branch clotrimazol Yes [id number] Apply to Univers e 1 % 3-07 face/ears, ity of topical 00:00: armpits, [place] cream 00 pannus and Medical back/any Branch other rash twice a day fluocinonid 0 Yes [id number] Apply to Univers e 0.05 % 3-07 scalp ity of solution 00:00: twice a day Medical Branch triamcinolo Yes [id number] Apply to Univers ne 3-07 back, ity of acetonide 00:00: armpits [place] 0.1 % cream 00 and other Med ical affected Branch areas twice daily, please mix with clotrimazo le hydrOXYzine Yes [id number] 10mg Take 1 Univers 10 mg 3-07 tablet by ity of tablet 00:00: mouth 2 (two) Medical times Branch daily. amLODIPine 2020-0 Yes [id number] 10mg Take 1 Univers 10 mg 3-07 tablet by ity of tablet 00:00: mouth [place] 00 daily. Medical Branch clotrimazol 2020-0 Yes [id number] Apply to Univers e 1 % 3-07 face/ears, ity of topical 00:00: armpits, [place] cream 00 pannus and Medical back/any Branch other rash twice a day fluocinonid 2020-0 Yes [id number] Apply to Univers e 0.05 % 3-07 scalp ity of solution 00:00: twice a day Medical Branch triamcinolo 2021-0 Yes [id number] Apply to Univers ne 3-07 back, ity of acetonide 00:00: armpits [place] 0.1 % cream 00 and other Med ical affected Branch areas twice daily, please mix with clotrimazo le hydrOXYzine Yes [id number] 10mg Take 1 Univers 10 mg 3-07 tablet by ity of tablet 00:00: mouth 2 [place] 00 (two) Medical times Branch daily. amLODIPine Yes [id number] 10mg Take 1 Univers 10 mg 3-07 tablet by ity of tablet 00:00: mouth [place] 00 daily. Medical Branch clotrimazol Yes [id number] Apply to Univers e 1 % 3-07 face/ears, ity of topical 00:00: armpits, [place] cream 00 pannus and Medical back/any Branch other rash twice a day fluocinonid Yes [id number] Apply to Univers e 0.05 % 3-07 scalp ity of solution 00:00: twice a [place] 00 day Medical Branch triamcinolo Yes [id number] Apply to Univers ne 3-07 back, ity of acetonide 00:00: armpits [place] 0.1 % cream 00 and other Med ical affected Branch areas twice daily, please mix with clotrimazo le hydrOXYzine Yes [id number] 10mg Take 1 Univers 10 mg 3-07 tablet by ity of tablet 00:00: mouth 2 [place] 00 (two) Medical times Branch daily. cephALEXin 2020-2020- No [id number] 500mg Take 1 Univers 500 mg 3-04 14-11 capsule by ity of capsule 00:00: 05:59 mouth [place] 00 :00 every 6 Medical (six) Branch hours for 3 days. cephALEXin 2020-2020- No [id number] 500mg Take 1 Univers 500 mg 3-04 14-11 capsule by ity of capsule 00:00: 05:59 mouth [place] 00 :00 every 6 Medical (six) Branch hours for 3 days. hydrOXYzine 2020-2020- No [id number] 10mg Take 1 Univers 10 mg 3-07 [...] days NaCl 0.9% No 500mL at 999 [facility] ers (NS) bolus 12-15 mL/hr, 500 it y of infusion 16:00: 15:26 mL, IV [place] 500 mL 00 :00 Piggyback, [facility] ONCE, 1 Branch dose, Fri12/15/20 at 1000, STAT HYDROmorpho Yes 4mg 4 mg, [facility] ne 12-15 Oral, BID, ity of (DILAUDID) 15:30: First dose [place] tablet 4 mg 00 (after Medica l last Branch modificati on) on Fri12/15/20 at 0930, Until Discontinu ed, Routine amLODIPine 2020- No [id number] 10mg Take 1 Univers 10 mg 12-15 tablet by ity of tablet 00:00: 00:00 mouth [place] 00 :00 daily. Medical Branch HYDROmorpho No 1mg 1 mg, [facility] ers ne 12-14 Oral, ity of (DILAUDID) 17:35: 15:18 Q6HPRN, [place] tablet 1 mg 30 :06 Starting Medi [facility] 12/14/20 Branch at 1135, Until Fri12/15/20 at 0918, Routine, Pain (scale 7-10) hydrOXYzine Yes 10mg 10 mg, [facility] ers (ATARAX) 12-14 Oral, BID, ity o f tablet 10 17:30: First dose [place] mg 00 on [facility] 12/14/20 at Branch 1130, Until Discontinu ed, Routine lisinopriL Yes 5mg 5 mg, Univer s (PRINIVIL,Z 12-14 Oral, ity of ESTRIL) 17:30: DAILY, [place] tablet 5 mg 00 First dose Me dical on [facility] 12/14/20 at 1130, Until Discontinu ed, Routine triamcinolo 2020- No [id number] Apply to [facility] 12-14 back, ity of acetonide 00:00: 00:00 armpits [place] 0.1 % cream 00 :00 and other Med ical affected Branch areas twice daily, please mix with clotrimazo le clotrimazol 2020- No [id number] Apply to Univers e 1 % 12-14 face/ears, ity of topical 00:00: 00:00 armpits, [place] cream 00 :00 pannus and Medical back/any Branch other rash twice a day fluocinonid 2020- No [id number] Apply to Univers e 0.05 % 12-14 scalp ity of solution 00:00: 00:00 twice a [place] 00 :00 day Medical Branch hydrOXYzine 2020- No [id number] 10mg Take 1 Univers 10 mg 12-14 [...] IV Push, ity of (PF)) 10:07: Q6HPRN, [place] injection 4 28 Starting Medi jose c mg Fri12/13/20 Branch at 0407, Until Discontinu ed, Routine, Nausea and Vomiting (N/V) ondansetron 2020- No 4mg 4 mg, Slow Univers (ZOFRAN 12-13- IV Push, ity of (PF)) 04:55: 05:44 ONCE, 1 [place] injection 4 00 :00 dose, [facility] ical mg 12/12/20 at Branch 2300, Routine traMADoL 2020- No 50mg 50 mg, Univer s (ULTRAM) 12-1303 Oral, ity of tablet 50 03:45: 03:34 ONCE, 1 [place] mg 00 :00 dose, [facility] 12/12/20 at Branch 2145, Routine insulin Yes 15U 15 Units, Unive rs glargine 12-12 Subcutaneo ity o f (LANTUS 15:00: us, DAILY, [place] U-100) 00 First dose Medical injection on [facility] 15 Units 12/12/20 at 0900, Until Discontinu ed hydrOXYzine 2020- No 10mg 10 mg, Uni vers (ATARAX) 12-12 0302 Oral, ity of tablet 10 08:15: 07:33 ONCE, 1 [place] mg 00 :00 dose, [facility] 12/12/20 at Branch 0215, Routine mirtazapine Yes 7.5mg 7.5 mg, Un toi (REMERON) 3 Oral, QHS, ity of tablet 7.5 03:00: First dose [place] mg 00 on [facility] 12/11/20 at Branch 2100, Until [...] Oral, ity of (TYLENOL 23:23: 13:49 Q6HPRN, [place] #3) 300-30 43 :08 Starting Medic al [...] ity of 1,000 mg in 19:00: 17:35 [facility] [place] NaCl 0.9% 00 :26 Q8H ABX, Medica l (NS) 50 mL First dose [facility] MINI-BAG on Fri12/11/20 at 1300, [...] Subcutaneo ity of (human) 18:00: , TID [place] (HumaLOG 00 MEALS, Medical U-100) First dose Branch injection 5 on Fri Units 12/11/20 at 1200, Until Discontinu ed Polyethylen Yes 17g 17 g, [facility] rs e Glycol 12-11 Oral, ity of 3350 17:47: S42OXSL, [place] (MIRALAX) 05 Starting Medica l powder 17 g 12/11/20 Br anch at 1147, Until Discontinu ed, Routine, Constipati on acetaminoph Yes 650mg 650 mg, Un toi en 12-11 Oral, ity of (TYLENOL) 16:51: Q6HPRN, [place] tablet 650 28 Starting Medic al mg [...]
Duration of therapy: 72 hours sennosides- Yes [id number] 1{tbl} Take 1 [facility] docusate 2- tablet by ity of sodium 00:00: mouth 2 [place] 8.6-50 mg 00 (two) Medical per tablet times Branch daily. hydrocortis Yes [id number] Apply to [facility] one 2.5 % 11-21 affected ity of cream 00:00: area(s) 2 [place] 00 (two) Medical times Branch daily. blood sugar Yes [id number] Use to Univers diagnostic 11-21 check ity of (FREESTYLE 00:00: blood [place] LITE 00 glucose Medical STRIPS) 4-5 times Branch strip daily. Polyethylen Yes [id number] 17g Take 1 Univers e Glycol 11-21 Packet by ity of 3350 17 00:00: mouth [place] gram powder 00 every 24 Medi jose c (twenty-fo Branch ur) hours as needed for Constipati on. sennosides- 2020- Yes [id number] 1{tbl} Take 1 Univers docusate 2-09 tablet by ity of sodium 00:00: mouth 2 [place] 8.6-50 mg 00 (two) Medical per tablet times Branch daily. hydrocortis 2020- Yes [id number] Apply to Univers one 2.5 % 2-09 affected ity of cream 00:00: area(s) 2 [place] 00 (two) Medical times Branch daily. blood sugar 2020- Yes [id number] Use to [facility] diagnostic 11-21 check ity of (FREESTYLE 00:00: blood [place] LITE 00 glucose Medical STRIPS) 4-5 times Branch strip daily. Polyethylen 2020- Yes [id number] 17g Take 1 Univers e Glycol 2-09 Packet by ity of 3350 17 00:00: mouth [place] gram powder 00 every 24 Medi jsoe c (twenty-fo Branch ur) hours as needed for Constipati on. sennosides- Yes [id number] 1{tbl} Take 1 Univers docusate 2-09 tablet by ity of sodium 00:00: mouth 2 [place] 8.6-50 mg 00 (two) Medical per tablet times Branch daily. hydrocortis 2020- Yes [id number] Apply to Univers one 2.5 % 2-09 affected ity of cream 00:00: area(s) 2 [place] 00 (two) Medical times Branch daily. blood sugar 2020- Yes [id number] Use to [facility] diagnostic 11-21 check ity of (FREESTYLE 00:00: blood [place] LITE 00 glucose Medical STRIPS) 4-5 times Branch strip daily. Polyethylen 2020-0 Yes [id number] 17g Take 1 Univers e Glycol 2-09 Packet by ity of 3350 17 00:00: mouth [place] gram powder 00 every 24 Medi jose c (twenty-fo Branch ur) hours as needed for Constipati on. sennosides- 2020- Yes [id number] 1{tbl} Take 1 Univers docusate 2-09 tablet by ity of sodium 00:00: mouth 2 [place] 8.6-50 mg 00 (two) Medical per tablet times Branch daily. hydrocortis Yes [id number] Apply to [facility] one 2.5 % 11-21 affected ity of cream 00:00: area(s) 2 [place] 00 (two) Medical times Branch daily. blood sugar Yes [id number] Use to [facility] diagnostic 11-21 check ity of (FREESTYLE 00:00: blood [place] LITE 00 glucose Medical STRIPS) 4-5 times Branch strip daily. Polyethylen Yes [id number] 17g Take 1 Univers e Glycol 11-21 Packet by ity of 3350 17 00:00: mouth [place] gram powder 00 every 24 Medi jose c (twenty-fo Branch ur) hours as needed for Constipati on. Insulin 2020- No [id number] 15U inject 15 Univers Glargine 11-21 Units ity of (LANTUS 00:00: 05:59 under the [place] SOLOSTAR 00 :00 skin every Medic al U-100 morning Branch INSULIN) for 30 100 unit/mL days. (3 mL) injection venlafaxine 2020- No [id number] 150mg Take 1 Univers XR 150 mg 11-21 capsule by ity of 24 hr 00:00: 05:59 mouth 3 [place] capsule 00 :00 (three) Medical times Branch daily for 30 days. Insulin 2020- No [id number] 15U inject 15 Univers Glargine 11-21 Units ity of (LANTUS 00:00: 05:59 under the [employer] SOLOSTAR 00 :00 skin every Medic al U-100 morning Branch INSULIN) for 30 100 unit/mL days. (3 mL) injection venlafaxine 2020- No [id number] 150mg Take 1 Univers XR 150 mg 11-21 capsule by ity of 24 hr 00:00: 05:59 mouth 3 [place] capsule 00 :00 (three) Medical times Branch daily for 30 days. triamcinolo 2020- No [id number] Apply to [facility] ne 11-21-04 area(s) 2 ity of acetonide 00:00: 00:00 (two) [place] 0.1 % cream 00 :00 times Medical daily. Branch cephALEXin 2020- No [id number] 1000mg Take 2 Univers 500 mg 11-21 capsules ity of capsule 00:00: 00:00 by mouth 3 [place] 00 :00 (three) Medical times Branch daily. doxycycline 2020- No [id number] 100mg Take 1 Univers hyclate 100 11-21 capsule by i ty of mg capsule 00:00: 00:00 mouth [place] 00 :00 every 12 Medical (twelve) Branch hours. lactobacill 2020- No [id number] 1{tbl} Take 1 Univers us 11-21 tablet by ity of acidophilus 00:00: 00:00 mouth 2 [place] 25 million 00 :00 (two) Medical cell -100 times Branch mg captab daily. bisacodyL 2020- No [id number] 10mg Insert 1 Univers 10 mg 11-21 Suppositor ity of suppository 00:00: 00:00 y into [place] 00 :00 rectum at Medical bedtime as Branch needed for Constipati on. ALPRAZolam 2020- No [id number] .25mg Take 1 Univers (XANAX) 11-21 tablet by ity of 0.25 mg 00:00: 00:00 mouth 2 [place] tablet 00 :00 (two) Medical times Branch daily. hydrOXYzine 2020- No [id number] 20mg Take 2 Univers 10 mg 11-21 [...] 3 ity of 6 mg 01:13: (three) [place] capsule 36 times Medical daily. Branch Insulin 2019-10 Yes 15U inject 15 Unive rs Glargine 1-12 Units ity of (LANTUS 01:13: under the [place] SOLOSTAR) 36 skin. Medical 100 unit/mL Branch (3 mL) InPn INSULIN 2019-10 Yes 5U inject 5 Univer s ASPART 1-12 Units ity of (NOVOLOG 01:13: under the [facility] FLEXPEN SC) 36 skin. Medical Branch [...] Units ity of (LANTUS 01:13: under the [place] SOLOSTAR) 36 skin. Medical 100 unit/mL Branch [...] Units ity of (LANTUS 01:13: under the [place] SOLOSTAR) 36 skin. Medical 100 unit/mL Branch [...] Units ity of (LANTUS 01:13: under the [place] SOLOSTAR) 36 skin. Medical 100 unit/mL Branch (3 mL) InPn INSULIN 2019-10 Yes 5U inject 5 Univer s ASPART 1-12 Units ity of (NOVOLOG 01:13: under the [facility] FLEXPEN SC) 36 skin. Medical Branch [...] Units ity of (LANTUS 01:13: under the [place] SOLOSTAR) 36 skin. Medical 100 unit/mL Branch (3 mL) InPn INSULIN 2019-10 Yes 5U inject 5 Univer s ASPART 1-12 Units ity of (NOVOLOG 01:13: under the [facility] s FLEXPEN SC) 36 skin. Medical Branch ALPRAZolam 2019-10 Yes .25mg Take 0.25 U nivers (XANAX) 1-12 mg by ity of 0.25 mg 01:13: mouth 2 [place] tablet 36 (two) Medical times Branch daily. HYDROXYZINE 2019-10 2020- No 25mg Take 25 mg Univers PAMOATE 1-11 11-11 by mouth ity of ORAL 20:04: 00:00 daily. [place] 34 :00 Medical Branch hydrocortis 2019-10 Yes [id number] Apply to Univers one 2.5 % 1-11 affected ity of cream 00:00: area(s) 2 [place] 00 (two) Medical times Branch daily. hydrOXYzine 2019- Yes [id number] 20mg Take 2 Univers 10 mg 1-11 tablets by ity of tablet 00:00: mouth [place] 00 every 8 Medical (eight) Branch hours as needed for Itching or Anxiety. Polyethylen 2019- Yes [id number] 17g Take 1 Univers e Glycol 1-11 Packet by ity of 3350 17 00:00: mouth [place] gram powder 00 every 24 Medi jose c (twenty-fo Branch ur) hours as needed for Constipati on. hydrocortis 2019-10 Yes [id number] Apply to Univers one 2.5 % 1-11 affected ity of cream 00:00: area(s) 2 [place] 00 (two) Medical times Branch daily. hydrOXYzine 2019- Yes [id number] 20mg Take 2 Univers 10 mg 1-11 tablets by ity of tablet 00:00: mouth [place] 00 every 8 Medical (eight) Branch hours as needed for Itching or Anxiety. Polyethylen 2019- Yes [id number] 17g Take 1 Univers e Glycol 1-11 Packet by ity of 3350 17 00:00: mouth [place] gram powder 00 every 24 Medi jose c (twenty-fo Branch ur) hours as needed for Constipati on. hydrocortis 2019- Yes [id number] Apply to Univers one 2.5 % 1-11 affected ity of cream 00:00: area(s) 2 [place] (two) Medical times Branch daily. hydrOXYzine 2019- Yes [id number] 20mg Take 2 Univers 10 mg 1-11 tablets by ity of tablet 00:00: mouth [place] 00 every 8 Medical (eight) Branch hours as needed for Itching or Anxiety. Polyethylen 2019- Yes [id number] 17g Take 1 Univers e Glycol 1-11 Packet by ity of 3350 17 00:00: mouth [place] gram powder 00 every 24 Medi jose c (twenty-fo Branch ur) hours as needed for Constipati on. hydrocortis 2019-10 Yes [id number] Apply to Univers one 2.5 % 1-11 affected ity of cream 00:00: area(s) 2 [place] (two) Medical times Branch daily. hydrOXYzine 2019-10 Yes [id number] 20mg Take 2 Univers 10 mg 1-11 tablets by ity of tablet 00:00: mouth [place] 00 every 8 Medical (eight) Branch hours as needed for Itching or Anxiety. Polyethylen 2019-10 Yes [id number] 17g Take 1 Univers e Glycol 1-11 Packet by ity of 3350 17 00:00: mouth [place] gram powder 00 every 24 Medi jose c (twenty-fo Branch ur) hours as needed for Constipati on. hydrocortis 2019-10 Yes [id number] Apply to Univers one 2.5 % 1-11 affected ity of cream 00:00: area(s) 2 [place] (two) Medical times Branch daily. hydrOXYzine 2019-10 Yes [id number] 20mg Take 2 Univers 10 mg 1-11 tablets by ity of tablet 00:00: mouth [place] 00 every 8 Medical (eight) Branch hours as needed for Itching or Anxiety. Polyethylen 2019- Yes [id number] 17g Take 1 Univers e Glycol 1-11 Packet by ity of 3350 17 00:00: mouth [place] gram powder 00 every 24 Medi jose c (twenty-fo Branch ur) hours as needed for Constipati on. hydrocortis 2019-10 Yes [id number] Apply to Univers one 2.5 % 1-11 affected ity of cream 00:00: area(s) 2 [place] (two) Medical times Branch daily. hydrOXYzine 2019-10 Yes [id number] 20mg Take 2 Univers 10 mg 1-11 tablets by ity of tablet 00:00: mouth [place] 00 every 8 Medical (eight) Branch hours as needed for Itching or Anxiety. Polyethylen 2019- Yes [id number] 17g Take 1 Univers e Glycol 1-11 Packet by ity of 3350 17 00:00: mouth [place] gram powder 00 every 24 Medi jose c (twenty-fo Branch ur) hours as needed for Constipati on. hydrocortis 2019- Yes [id number] Apply to Univers one 2.5 % 1-11 affected ity of cream 00:00: area(s) 2 [place] 00 (two) Medical times Branch daily. hydrOXYzine 2019-10 Yes [id number] 20mg Take 2 Univers 10 mg 1-11 tablets by ity of tablet 00:00: mouth [place] 00 every 8 Medical (eight) Branch hours as needed for Itching or Anxiety. Polyethylen 2019-10 Yes [id number] 17g Take 1 Univers e Glycol 1-11 Packet by ity of 3350 17 00:00: mouth [place] gram powder 00 every 24 Medi jose c (twenty-fo Branch ur) hours as needed for Constipati on. triamcinolo 2019- 2020- No [id number] Apply to [facility] 10-23 area(s) 2 ity of acetonide 00:00: 05:59 (two) [place] 0.1 % cream 00 :00 times Medical daily for Branch 14 days. triamcinolo 2019- 2020- No [id number] Apply to [facility] 10-23 area(s) 2 ity of acetonide 00:00: 05:59 (two) [place] 0.1 % cream 00 :00 times Medical daily for Branch 14 days. triamcinolo 2019- 2020- No [id number] Apply to [facility] 10-23 area(s) 2 ity of acetonide 00:00: 05:59 (two) [place] 0.1 % cream 00 :00 times Medical daily for Branch 14 days. KCL 2019- 2020- No 40meq 40 mEq, Univers (KLOR-CON - 11-10 Oral, ONCE ity of M20) tablet 16:15: 16:23 NOW, 1 [place] 40 mEq 00 :00 dose, [facility] 08/22/20 Branch at 1015, Routine HYDROmorpho 2019-10 Yes 1mg 1 mg, Unive rs ne 1-10 Oral, ity of (DILAUDID) 15:07: Q6HPRN, [place] tablet 1 mg 53 Starting [facility] 08/22/20 at 0907, Until Discontinu ed, Routine, Pain (scale 7-10) hydrocortis 2019-10 Yes Topical Uni vers one 2.5 % 1-10 (Apply To ity o f cream 02:00: Affected [place] 00 Areas), Medical BID, First Branch dose on [facility] 08/21/20 at 2000, Until Discontinu ed, Routine triamcinolo 2019-10 Yes Topical, Un toi ne 1-10 BID, First ity of acetonide 02:00: dose on [place] (TRIDERM) 00 [facility] Medical 0.1 % cream 08/21/20 at Br anch 2000, Until Discontinu ed, Routine hydrOXYzine 2019-10 Yes 20mg 20 mg, Univ ers (ATARAX) 09 Oral, ity of tablet 20 17:39: Q8HPRN, [place] mg 12 Starting Medical [facility] 08/21/20 at 1139, Until Discontinu ed, Routine, Itching, Anxiety sennosides- 2019-10 Yes 1{tbl} 1 tablet, Univers docusate 10-21 Oral, ity of sodium 15:00: DAILY, [place] (SENOKOT-S) 00 First dose Me dical 8.6-50 mg on [facility] per tablet 08/21/20 at 1 tablet 0900, Until Discontinu ed, Routine hydrocortis 2019-10 2020- No Topical Un toi one 1 % 10-21 (Apply To ity of cream 15:00: 22:54 Affected [place] 00 :48 Areas), Medical DAILY, Branch First dose on [facility] 08/21/20 at 0900, Until Discontinu ed, Routine venlafaxine 2019-10 Yes 150mg 150 mg, Un toi XR (EFFEXOR 09 Oral, TID, it y of XR) 24 hr 14:00: First dose [place] capsule 150 00 on [facility] Medica l mg 08/21/20 at [...] 59 :43 Starting Medica l mg [facility] 08/21/20 at 0656, Until Fri08/21/20 at 1139, Routine, Itching, Mild Rash, Congestion /Allergies , alternate with hydroxyzin e hydrOXYzine 2019-10 No 10mg 10 mg, Uni vers (ATARAX) 10-21 Oral, ity of tablet 10 10:20: 12:57 Q6HPRN, [place] mg 22 :12 Starting Medical [facility] 08/21/20 at 0420, Until Fri08/21/20 at 0657, [...] 1 ity o f 09:30: 09:14 dose, [facility] 00 :00 08/21/20 at [facility] 0330, Branch Routine Polyethylen 2019-10 Yes 17g 17 g, Unive rs e Glycol 10-21 Oral, ity of 3350 08:29: [id number], [place] (MIRALAX) 09 Starting Medica l powder 17 g [facility] 08/21/20 at 0229, Until Discontinu ed, Routine, Constipati on lanolin 2019-10 Yes Topical, Univer s alcohol-mo- 10-21 PRN, ity of w.pet-ceres 08:26: [place] (EUCERIN[place] 30 [facility] Medical cream 08/21/20 at Branch 0226, [...] of 40 mg 08:22: 00:00 daily with [place] capsule 59 :00 breakfast. Medica l Branch [...] 1-3) sotalol 2019-10 2020- No Take by [facility] (BETAPACE) 10-21 mouth ity of 240 mg 07:43: 00:00 every 12 [place] tablet 30 :00 (twelve) Medical hours. Branch blood sugar Yes Use to [facility] ers diagnostic 4-25 check ity of (FREESTYLE 00:00: blood [place] LITE 00 glucose Medical STRIPS) 4-5 times Branch strip daily. blood sugar Yes Use to [facility] ers diagnostic 4-25 check ity of (FREESTYLE 00:00: blood [place] LITE 00 glucose Medical STRIPS) 4-5 times Branch strip daily. blood sugar Yes Use to [facility] ers diagnostic 4-25 check ity of (FREESTYLE 00:00: blood [place] LITE 00 glucose Medical STRIPS) 4-5 times Branch strip daily. blood sugar Yes Use to [facility] ers diagnostic 4-25 check ity of (FREESTYLE [...] 13:00:00 148 mm[Hg] Univer sity of pressure [place] [facility] Diastolic blood 2021-08-22 13:00:00 84 mm[Hg] Unive rsity of pressure [place] [facility] Heart rate 2021-08-22 13:00:00 103 /min Universi ty [facility] [place] [facility] Respiratory rate 2021-08-22 13:00:00 18 /min Univ ersity of [facility] Branch Oxygen saturation in 2021-08-22 13:00:00 95 /min University of Arterial blood by [facility] Pulse oximetry Branch Body temperature 2021-08-22 12:22:00 36.72 [place] Univ ersity of [facility] Branch Systolic blood 2020-12-17 18:35:00 139 mm[Hg] Univer sity of pressure [place] [facility] Diastolic blood 2020-12-17 18:35:00 87 mm[Hg] Unive rsity of pressure [place] [facility] Heart rate 2020-12-17 18:35:00 110 /min Universi ty [facility] [place] [facility] Body temperature 2020-12-17 18:35:00 37.72 [place] [facility] ersity of [facility] Branch Respiratory rate 2020-12-17 18:35:00 18 /min Univ ersity of [facility] Branch Oxygen saturation in 2020-12-17 18:35:00 93 /min University of Arterial blood by [facility] Pulse oximetry Branch Body height 2020-12-12 08:21:00 180.3 cm Universi ty [facility] [place] [facility] Body weight 2020-12-12 08:21:00 103.42 kg Universi ty of [place] [facility] BMI 2020-12-12 08:21:00 31.80 kg/m2 Universi ty [facility] [place] [facility] Systolic blood 2020-12-17 18:35:00 139 mm[Hg] Univer sity of pressure [place] [facility] Diastolic blood 2020-12-17 18:35:00 87 mm[Hg] Unive rsity of pressure [place] [facility] Heart rate 2020-12-17 18:35:00 110 /min Universi ty [facility] [place] [facility] Body temperature 2020-12-17 18:35:00 37.72 [place] Univ ersity of [place] [facility] Respiratory rate 2020-12-17 18:35:00 18 /min Univ ersity of [place] [facility] Oxygen saturation in 2020-12-17 18:35:00 93 /min University of Arterial blood by Soricimed jose c Pulse oximetry Branch Body height 2020-12-12 08:21:00 180.3 cm Universi ty [facility] [place] [facility] Body weight 2020-12-12 08:21:00 103.42 kg Universi ty of [place] [facility] BMI 2020-12-12 08:21:00 31.80 kg/m2 Universi ty of [place] [facility] Systolic blood 2020-08-23 19:27:00 140 mm[Hg] Univer sity of pressure [place] [facility] Diastolic blood 2020-08-23 19:27:00 79 mm[Hg] Unive rsity of pressure [place] [facility] Heart rate 2020-08-23 19:27:00 99 /min Universi ty [facility] [place] [facility] Body temperature 2020-08-23 19:27:00 36 [place] Univ ersity of [place] [facility] Respiratory rate 2020-08-23 19:27:00 18 /min Univ ersity of [place] [facility] Oxygen saturation in 2020-08-23 19:27:00 93 /min University of Arterial blood by Soricimed jose c Pulse oximetry Branch Body weight 2020-08-21 07:20:00 104.962 kg Universi ty of [place] [facility] BMI 2020-08-21 07:20:00 32.27 kg/m2 Universi ty [facility] [place] [facility] Systolic blood 2020-08-23 19:27:00 140 mm[Hg] Univer sity of pressure [place] [facility] Diastolic blood 2020-08-23 19:27:00 79 mm[Hg] [facility] of pressure [facility] Heart rate 2020-08-23 19:27:00 99 /min [facility] Body temperature 2020-08-23 19:27:00 36 [place] [facility] rate 2020-08-23 19:27:00 18 /min [facility] Oxygen saturation in 2020-08-23 19:27:00 93 /min [facility] Arterial blood by [facility] Pulse oximetry [place] Body weight 2020-08-21 07:20:00 104.962 kg [facility] BMI 2020-08-21 07:20:00 32.27 kg/m2 [facility] Procedures Procedure Date / Time Performing Clinician Source Performed POCT GLUCOSE (AUTOMATED) 2020-12-17 15:42:00 Harrison, Premal G Uni [facility] BASIC METABOLIC PANEL 2020-12-17 10:45:00 Paul Bean [facility] (NA, K, CL, CO2, GLUCOSE, [place] Medica l Branch BUN, CREATININE, CA) CBC WITH DIFF 2020-12-17 10:45:00 Paul Bean [facility] POCT GLUCOSE (AUTOMATED) 2020-12-17 02:36:00 [facility] XR TIBIA FIBULA 2 VW LEFT 2020-12-16 23:38:00 Paul Bean [facility] POCT GLUCOSE (AUTOMATED) 2020-12-16 23:20:00 Harrison, Premal [facility] PO[facility] GLUCOSE (AUTOMATED) 2020-12-16 20:10:00 Harrison, Premal [facility] PO[facility] GLUCOSE (AUTOMATED) 2020-12-16 14:43:00 Harrison, Premal [facility] BASIC METABOLIC PANEL 2020-12-16 13:51:00 Paul Bean [facility] (NA, K, CL, CO2, GLUCOSE, [place] Med[facility] l Branch BUN, CREATININE, CA) CBC WITH DIFF 2020-12-16 13:51:00 Paul Bean [facility] POCT GLUCOSE (AUTOMATED) 2020-12-16 04:00:00 Harrison, Premal G Uni versity of [facility] POCT GLUCOSE (AUTOMATED) 2020-12-16 00:14:00 Harrison, Premal G Uni versity of [facility] CT CHEST PULMONARY 2020-12-15 22:29:38 Paul Bean [facility] ANGIOGRAM [facility] POCT GLUCOSE (AUTOMATED) 2020-12-15 19:26:00 Harrison, Premal G Uni versity of [facility] POCT GLUCOSE (AUTOMATED) 2020-12-15 15:13:00 Hunter, Premal [facility] ECG ROUTINE & RHYTHM 2020-12-15 14:25:27 Cailin Romo [facility] STRIP [facility] MAGNESIUM 2020-12-15 12:01:00 Paul Bean Sivakumar [facility] BASIC METABOLIC PANEL 2020-12-15 12:01:00 Paul Bean [facility] (NA, K, CL, CO2, GLUCOSE, [place] [facility] BUN, CREATININE, CA) CBC WITH DIFF 2020-12-15 12:01:00 Paul Bean [facility] POCT GLUCOSE (AUTOMATED) 2020-12-15 03:57:00 Harrison, Premal G Uni versity of [facility] POCT GLUCOSE (AUTOMATED) 2020-12-14 23:31:00 Harrison, Premal G Uni versity of [facility] POCT GLUCOSE (AUTOMATED) 2020-12-14 19:08:00 Harrison, Premal G Uni versity of [facility] POCT GLUCOSE (AUTOMATED) 2020-12-14 15:11:00 Harrison, Premal G Uni versity of [facility] POCT GLUCOSE (AUTOMATED) 2020-12-14 02:36:00 Harrison, Premal G Uni versity of [facility] POCT GLUCOSE (AUTOMATED) 2020-12-13 23:32:00 Harrison, Premal G Uni versity of [facility] POCT GLUCOSE (AUTOMATED) 2020-12-13 18:08:00 Harrison, Premal G Uni versity of [facility] BASIC METABOLIC PANEL 2020-12-13 15:39:00 Paul Bean [facility] (NA, K, CL, CO2, GLUCOSE, [place] [facility] BUN, CREATININE, CA) CBC WITH DIFF 2020-12-13 15:39:00 Paul Bean [facility] POCT GLUCOSE (AUTOMATED) 2020-12-13 14:06:00 Harrison, Premal G Uni versity of [facility] POCT GLUCOSE (AUTOMATED) 2020-12-13 03:07:00 Harrison, Premal G Uni versity of [facility] POCT GLUCOSE (AUTOMATED) 2020-12-12 23:52:00 Harrison, Premal G Uni versity of [facility] POCT GLUCOSE (AUTOMATED) 2020-12-12 20:28:00 Harrison, Premal G Uni versity of [facility] POCT GLUCOSE (AUTOMATED) 2020-12-12 19:14:00 Harrison, Premal G Uni versity of [facility] POCT GLUCOSE (AUTOMATED) 2020-12-12 14:33:00 Harrison, Premal G Uni versity of [facility] MAGNESIUM 2020-12-12 08:58:00 Paul Bean [facility] BASIC METABOLIC PANEL 2020-12-12 08:58:00 Paul Bean [facility] (NA, K, CL, CO2, GLUCOSE, [place] [facility] BUN, CREATININE, CA) CBC WITH DIFF 2020-12-12 08:58:00 Paul Bean [facility] US ABDOMEN LIMITED 2020-12-12 06:32:26 Paul Bean [facility] POCT GLUCOSE (AUTOMATED) 2020-12-12 03:40:00 Harrison, Premal G Uni versity of [facility] POCT GLUCOSE (AUTOMATED) 2020-12-12 00:06:00 Harrison, Premal G Uni versity [facility] XR HIPS 3 VW LEFT 2020-12-11 20:20:00 Paul Bean [facility] HB ECG ROUTINE & RHYTHM 2020-12-11 20:04:06 Demetrius [facility] STRIP [facility] VITAMIN B6, PLASMA 2020-12-11 19:17:00 Vikas [facility] POCT GLUCOSE (AUTOMATED) 2020-12-11 19:06:00 Rene Harrison [facility] CREATINE KINASE 2020-12-11 18:22:00 Parvez Clarisse [facility] VITAMIN B12, LEVEL 2020-12-11 18:22:00 Vikas [facility] FOLATE 2020-12-11 18:22:00 Vikas [facility] THYROID STIMULATING 2020-12-11 18:22:00 [facility] PROCALCITONIN 2020-12-11 18:22:00 Vikas [facility] VITAMIN B1 (THIAMINE), 2020-12-11 18:22:00 Vikas [facility] WHOLE BLOOD [facility] CT HEAD WO CONTRAST 2020-12-11 14:07:35 Sweetie [facility] URINALYSIS 2020-12-11 13:44:00 Singer Paco [facility] URINE CULTURE 2020-12-11 13:44:00 [facility] COVID-19 (ID NOW RAPID 2020-12-11 12:31:00 Paco Lacey [facility] TESTING) [facility] LAB ONLY COVID 2020-12-11 12:31:00 Paco Lacey [facility] XR CHEST 1 VW 2020-12-11 12:07:24 [facility] BLOOD C[facility] S[facility]EN 2020-12-11 12:02:[address] [facility] MAGNESIUM 2020-12-11 12:02:00 [facility] FERR[facility]IN SERUM 2020-12-11 12:02:00 Vikas [facility] COMP. METABOLIC PANEL 2020-12-11 12:02:00 Singer Paco [facility] ([id number]) Medical Branch CBC WITH DIFF 2020-12-11 12:02:00 Singer [facility] LACTIC ACID WHOLE BLOOD 2020-12-11 12:02:00 Singer Paco [facility] BLOOD CULTURE SCREEN 2020-12-11 11:42:[address] [facility] EMERGENCY SERVICES 2020-12-11 06:01:00 Doctor Unassnadya, [facility] AGREEMENTS AND [place] [facility] AUTHORIZATIONS HOSPITAL ADMISSION 2020-12-11 06:01:00 Doctor Tabitha [facility] Name Medical [place] HOME HEALTH - OTHER 2020-11-11 06:01:00 Doctor Tabitha [facility] [place] [facility] [place] [facility] - OTHER 2020-10-30 06:01:00 Doctor Tabitha [facility] Name Medical [place] EXTERNAL PROVIDER RECORDS 2020-09-01 06:01:00 Doctor Tabitha [facility] Name Medical [place] POCT GLUCOSE (AUTOMATED) 2020-08-23 18:09:[address] [facility] POCT GLUCOSE (AUTOMATED) 2020-08-23 14:14:[address] [facility] MAGNESIUM 2020-08-23 11:18:00 [place] [facility] BASIC METABOLIC PANEL 2020-08-23 11:18:00 [place] [facility] (NA, K, CL, CO2, GLUCOSE, Medica l Branch BUN, CREATININE, CA) CBC WITH DIFF 2020-08-23 11:18:00 [place] [facility] POCT GLUCOSE (AUTOMATED) 2020-08-23 10:21:[address] [facility] POCT GLUCOSE (AUTOMATED) 2020-08-23 05:55:[address] [facility] POCT GLUCOSE (AUTOMATED) 2020-08-23 03:00:[address] [facility] POCT GLUCOSE (AUTOMATED) 2020-08-22 23:38:00 Stefania [facility] POCT GLUCOSE (AUTOMATED) 2020-08-22 19:04:00 StefaniaKelly versLucile [facility] POCT GLUCOSE (AUTOMATED) 2020-08-22 13:49:00 Bety [place] [facility] MAGNESIUM 2020-08-22 10:10:00 [facility] [place] [facility] HEPATIC FUNCTION PANEL 2020-08-22 10:10:00 Aguila Melchor [facility] ([id number]) (ALB,T.PRO,[facility] T,BU/BC,ALT,AST,ALK PHOS) BASIC METABOLIC PANEL 2020-08-22 10:10:00 [place], [facility] (NA, K, CL, CO2, GLUCOSE, Medica l Branch BUN, CREATININE, CA) LIPID PANEL ([id number])(TOTAL 2020-08-22 10:10:00 [place], [facility] TRIGLYCERIDES, HDL) CBC WITH DIFF 2020-08-22 10:10:00 [facility] POCT GLUCOSE (AUTOMATED) 2020-08-22 10:10:[address] [facility] POCT GLUCOSE (AUTOMATED) 2020-08-22 07:13:[address] [facility] POCT GLUCOSE (AUTOMATED) 2020-08-22 02:24:[address] [facility] POCT GLUCOSE (AUTOMATED) 2020-08-21 23:40:00 Stefania [facility] POCT GLUCOSE (AUTOMATED) 2020-08-21 18:10:[address] [facility] POCT GLUCOSE (AUTOMATED) 2020-08-21 13:39:00 Stefania [facility] ETHANOL 2020-08-21 12:35:00 Jos Quiroz [facility] ACTIVATED PARTIAL 2020-08-21 12:35:00 Stefania [facility] GALV ONLY - SYPHILIS 2020-08-21 12:35:00 Stefania [facility] IGG/IGM [facility] LACTATE DEHYDROGENASE 2020-08-21 10:09:00 [place], [facility] GALV/CLC ONLY - URINE 2020-08-21 10:09:00 Jos Quiroz [facility] DRUG (IMMUNOASSAY) - 4 ER Medica l Branch PANEL URINALYSIS 2020-08-21 10:09:00 [place], [facility] URINE CULTURE 2020-08-21 10:09:00 Ramya, [facility] PROCALCITONIN 2020-08-21 10:09:00 [place], [facility] POCT GLUCOSE (AUTOMATED) 2020-08-21 09:41:00 Stefania [facility] PROTHROMBIN TIME / INR 2020-08-21 08:32:00 [place], [facility] ACTIVATED PARTIAL 2020-08-21 08:32:00 [place], [facility] C-REACTIVE PROTEIN 2020-08-21 08:31:00 Ramya, [facility] HEPATIC FUNCTION PANEL 2020-08-21 08:31:00 Ramya, [facility] ([id number]) (ALB,T.PRO,BILI [facility] T,BU/BC,ALT,AST,ALK PHOS) BASIC METABOLIC PANEL 2020-08-21 08:31:00 [place], [facility] (NA, K, CL, CO2, GLUCOSE, [facility] BUN, CREATININE, CA) SEDIMENTATION RATE 2020-08-21 08:31:00 Ramya, [facility] CBC WITH DIFF 2020-08-21 08:31:00 [place], [facility] GLYCOSYLATED HEMOGLOBIN 2020-08-21 08:31:00 [place], [facility] (A1C) [facility] HIV 1/2 AG-AB WITH REFLEX 2020-08-21 08:31:00 [place], [facility] [place] [facility] COVID-19 (ID NOW RAPID 2020-08-21 08:20:00 [facility]aily [facility] Medical Branch LAB ONLY COVID 2020-08-21 08:20:00 Haily Bui [facility] Encounters Start End Encounter Admission Attending Care Care Encounter Source Date/Time Date/Time Type Type Clinicians Facility Department ID 2020-08-21 Inpatient U STEFANIA [facility] [id number] Univers 01:07:00 KELLY cantu [facility] 2021-08-22 2021-08-22 Emergency [facility] [id number] Univers 06:21:00 08:02:00 SWEETIE cantu [facility] [place] [facility] 2021-08-22 2021-08-22 Emergency [facility] [id number] Univers 06:21:00 08:02:00 Sweetie LOTT [id number] i ty of [facility] [id number] [facility] [id number] [facility] 084 Branch 2021-08-09 2021-08-09 Outpatient ZAKI, [facility] [id number] [facility] 10:27:03 10:27:03 ADRIANA lopez of Medicin e 2020-12-28 2020-12-28 Telephone [facility] 1.2.840.114 [id number] 00:00:00 00:00:00 Calvin H PRIMARY [id number] CARE 4.2.7.2.686 PAVILLION [id number] 220 2020-12-28 2020-12-28 Telephone [facility] 1.2.840.114 [id number] Univers 00:00:00 00:00:00 Calvin H PRIMARY [id number] it y of CARE 4.2.7.2.[address] [facility] [id number] Mi dical 220 Branch 2020-12-19 2020-12-19 Transition Tuan Peters 1.2.840.114 [id number] 00:00:00 00:00:00 of Care Ruchi Braswell [id number] [place] [id number] [id number] 2020-12-19 2020-12-19 Transition Tuan Peters 1.2.840.114 [id number] Univers 00:00:00 00:00:00 of Care Ruchi Braswell [id number] it y of [place] 4.2.7.2.686 Jennifer pelletier [id number] [facility] 403 Branch 2020-12-11 2020-12-17 [facility] Paco Lacey Ayleen 1.2.840.1 [id number] 05:11:00 16:00:00 Encounter Rene [place] [id number] [facility] 4.2.7.2.686 [id number] [facility] 2020-12-11 2020-12-17 [facility] Paco Lacey 1.2.840.1 [id number] [facility] 05:11:00 16:00:00 Encounter Rene [place] [id number] ity [facility] 4.2.7.2.686 [place] [id number] [place] [id number] [place] 2020-12-11 2020-12-11 Emergency X [facility] ERT [id number] Univers 05:11:00 05:11:00 PACO cantu [facility] 2020-11-16 2020-11-16 Emergency X [facility] ERT [id number] Univers 09:31:00 09:31:00 PACO cantu [facility] 2020-11-11 2020-11-11 Orders Doctor CUI 1.2.840.114 [id number] 00:00:00 00:00:00 Only UnassignedNATTY [id number] [place] [facility] 4.2.7.2.686 [id number] 2020-11-11 2020-11-11 Orders Doctor CUI 1.2.840.114 [id number] Univers 00:00:00 00:00:00 Only UnassignedNATTY [id number] ity of [place] [facility] 4.2.7.2.686 Jeff as [id number] [address] 2020-11-07 2020-11-07 Telephone [facility] [id number] 00:00:00 00:00:00 Sendsiobhan Lott [id number] [place] 4.2.7.2.686 Professio [id number] [address] 2020-11-07 2020-11-07 Telephone [facility] [id number] Univers 00:00:00 00:00:00 Sendil Danitza Lott [id number] ity of [place]2.7.2.686 [place] Profess[place] [id number] [address] 2020-10-30 2020-10-30 Orders Doctor CUI 1.2.840.114 [id number] 00:00:00 00:00:00 Only Unassigned, NATTY [id number] [place] [facility] 4.2.7.2.686 [id number] [facility] 2020-10-30 2020-10-30 Orders Doctor BASILIA 1.2.840.114 [id number] Univers 00:00:00 00:00:00 Only Unassigned, NATTY [id number] ity of [place] [facility] 4.2.7.2.686 Jeff as [id number] [address] 2020-09-26 2020-09-26 Telephone STONE Mccabe 1.2.840.114 [id number] 00:00:00 00:00:00 [facility] [id number] CLINICS 4.2.7.2.686 [id number] 2020-09-26 2020-09-26 Telephone STONE Mccabe 1.2.840.114 [id number] Univers 00:00:00 00:00:00 [facility] [id number] i ty of CLINICS 4[place].2.686 [place] [id number] [address] 2020-09-01 2020-09-01 Orders Doctor BASILIA 1.2.840.114 [id number] 00:00:00 00:00:00 Only Unassigned, NATTY [id number] [place] [facility] 4.2.7.2.686 [id number] [id number] 2020-09-01 2020-09-01 Orders Doctor BASILIA 1.2.840.114 [id number] Univers 00:00:00 00:00:00 Only Unassigned, NATTY [id number] ity of [place] [facility] 4.2.7.2.686 Jeff as [id number] [facility] 009 Branch 2020-08-25 2020-08-25 Transition Tuan Peters 1.2.840.114 [id number] 00:00:00 00:00:00 of Care Ruchiliban Garciay [id number] [place] 4.2.7.2.686 [id number] 2020-08-25 2020-08-25 Transition Tuan Peters 1.2.840.114 [id number] Univers 00:00:00 00:00:00 of Care Ruchi Garciay [id number] it y of [place] 4[place]2.7.2.[place] [id number] [facility] 403 Branch 2020-08-21 2020-08-23 [facility] Ayleen 1.2.840.114 [id number] 01:07:00 18:35:00 Encounter Kelly Amaya [id number] [facility] 4.2.7.2.686 [id number] [facility] 2020-08-21 2020-08-23 [facility] Kelly [facility] Ayleen 1. 2.840.114 [id number] [facility] 01:07:00 18:35:00 Encounter Mukul Gallardo ErynKimmy Dorany 350.1.13. 10 ity of [facility] 4.2.7.2.686 Jeff as [phone] [address] Results Test Description Test Time Test Comments Results Result Comments Source POCT GLUCOSE (AUTOMATED) 2020-12-17 15:43:35 Test Item Value Reference Range Interpretation Comme nts POCT GLU (test code = 9486685493) 129 mg/dL 70-110 H Lab Interpretation (test code = 64459-3) Abnormal [facility] (NA, K, CL, CO2, GLUCOSE, BUN, CREATININE, CA)2020-12-17 11:45:07 Test Item Value Reference Range Interpretation Comments NA (test code = 137 mmol/L 135-145 8707790416) K (test code = 3.5 mmol/L 3.5-5.0 3620990774) CL (test code = 103 mmol/L 98-108 6273554927) CO2 TOTAL (test code = 26 mmol/L 23-31 9061214239) AGAP (test code = 2-16 0774525588) BUN (test code = 11 mg/dL 7-23 3492492943) GLUCOSE (test code = 175 mg/dL 70-110 H 4317338017) CREATININE (test code = 0.62 mg/dL 0.60-1.25 3754216661) CALCIUM (test code = 9.0 mg/dL 8.6-10.6 6958820486) eGFR Calculation mL/min/1.73m2 (Non-) (test code = 8446546985) eGFR Calculation mL/min/1.73m2 () (test code = 6113442822) JAMES (test code = JAMES) Association of [...] tests). Lab Interpretation Abnormal (test code = 58381-8) [facility] [id number] 11:07:27 Test Item Value Reference Range Interpretation [...] RDW-SD (test code = 45.2 fL 38.5-51.6 18926-2) RDW-CV (test code = 16.9 % 12.1-15.4 H 788-0) PLT (test code = See_Comment H [Automated 777-3) message] The sy stem which generated this result transmitted reference range : 150 - 328 10*3/ ?L. The reference r torito was not used to interpret this result as normal/abnormal . MPV (test code = 8.1 fL 9.8-13.0 L 63983-3) NRBC/100 WBC (test See_Comment [Automat ed code = 2252202459) message] The system which generated this result transmitted reference range : 0.0 - 10.0 /100 WBCs. The refer ence range was not u sed to interpret th is result as normal/abnormal . NRBC x10^3 (test code <0.01 See_Comment [Auto mated = 4124719293) message] The s ystem which generated this result transmitted reference range : 10*3/?L. The reference range was not used to interpret this result as normal/abnormal . GRAN MAT (NEUT) % 72.8 % (test code = 770-8) IMM GRAN % (test code 0.60 % = 9453161860) LYMPH % (test code = 18.4 % 736-9) MONO % (test code = 5.7 % 5905-5) EOS % (test code = 1.8 % 713-8) BASO % (test code = 0.7 % 706-2) GRAN MAT x10^3(ANC) 8.23 10*3/uL 1.99-6.95 H (test code = 2067084557) IMM GRAN x10^3 (test 0.07 10*3/uL 0.00-0.06 H code = 1067593709) LYMPH x10^3 (test code 2.08 10*3/uL 1.09-3.23 = 731-0) MONO x10^3 (test code 0.65 10*3/uL 0.36-1.02 = 742-7) EOS x10^3 (test code = 0.20 10*3/uL 0.06-0.53 711-2) BASO x10^3 (test code 0.08 10*3/uL 0.01-0.09 = 704-7) Lab Interpretation Abnormal (test code = 62574-4) [facility] 06:03:38 Test Item Value Reference Range Interpretation Comments POCT GLU (test code = 8435776421) 75 mg/dL 70-110 Lab Interpretation (test code = Normal 93622-2) [facility]6, [id number] 00:01:00 Test Item Value Reference Range Interpretation Comments VIT B6 (test code = 13.1 nmol/L 20.0-125.0 L INTERPRE TIVE 08084-7) INFORMATION: Vi tamin B6 (Pyridoxal 5-Phosphate) Pyridoxal 5'-phosphate me asured in a specimen collected follo wing an 8-hour or overnight fast accurately clara keene vitamin B6 nutritional sta tus. Non-fasting spe cimen concentration reflects recent vitamin intake. This test was develo ped and its perform ance characteristics determined by [facility]. I t has not been cleare d or approved by the US Food and Drug Administration. This test was perfor med in a CLIA certifie d laboratory and is intended for cl inical purposes.Perfor med By: [employer] [place] [address] [id number] Director: Namrata Klein MD Lab Interpretation Abnormal (test code = 88071-3) [facility]landXR TIBIA FIBULA 2 VW [id number] 23:57:09 Tricompartmental knee joint osteoarthrosis.XR TIBIA FIBULA [...] No acute fracture or dislocation.IMPRESSIONTricompartmental knee joint osteoarthrosis.[facility] GLUCOSE (AUTOMATED) 2020-12-16 23:27:00 Test Item Value Reference Range Interpretation Comments POCT GLU (test code = 8270630406) 114 mg/dL 70-110 H Lab Interpretation (test code = Abnormal 03253-0) [facility] GLUCOSE (AUTOMATED)2020-12-16 20:12:00 Test Item Value Reference Range Interpretation Comments POCT GLU (test code = 5925976131) 105 mg/dL 70-110 Lab Interpretation (test code = Normal 22537-2) [facility] GLUCOSE (AUTOMATED)2020-12-16 14:44:00 Test Item Value Reference Range Interpretation Comments POCT GLU (test code = 6813515362) 153 mg/dL 70-110 H Lab Interpretation (test code = Abnormal 58759-6) [facility] (NA, K, CL, CO2, GLUCOSE, BUN, CREATININE, CA)2020-12-16 14:23:00 Test Item Value Reference Range Interpretation Comments NA (test code = 138 mmol/L 135-145 7973407267) K (test code = 3.4 mmol/L 3.5-5.0 L 0821282037) CL (test code = 100 mmol/L 98-108 2029680576) CO2 TOTAL (test code = 31 mmol/L 23-31 3453455713) AGAP (test code = 2-16 1683677352) BUN (test code = 11 mg/dL 7-23 0688766169) GLUCOSE (test code = 162 mg/dL 70-110 H 4127708923) CREATININE (test code = 0.64 mg/dL 0.60-1.25 1305725288) CALCIUM (test code = 8.9 mg/dL 8.6-10.6 3010682564) eGFR Calculation mL/min/1.73m2 (Non-) (test code = 1735888491) eGFR Calculation mL/min/1.73m2 () (test code = 7063996355) JAMES (test code = JAMES) Association of [...] tests). Lab Interpretation Abnormal (test code = 12853-2) [facility] WITH [id number] 14:05:00 Test Item Value Reference Range Interpretation [...] RDW-SD (test code = 45.4 fL 38.5-51.6 98588-4) RDW-CV (test code = 17.0 % 12.1-15.4 H 788-0) PLT (test code = See_Comment H [Automated 777-3) message] The sy stem which generated this result transmitted reference range : 150 - 328 10*3/ ?L. The reference r torito was not used to interpret this result as normal/abnormal . MPV (test code = 8.0 fL 9.8-13.0 L 82912-8) NRBC/100 WBC (test See_Comment [Automat ed code = 2809945114) message] The system which generated this result transmitted reference range : 0.0 - 10.0 /100 WBCs. The refer ence range was not u sed to interpret th is result as normal/abnormal . NRBC x10^3 (test code <0.01 See_Comment [Auto mated = 3949298852) message] The s ystem which generated this result transmitted reference range : 10*3/?L. The reference range was not used to interpret this result as normal/abnormal . GRAN MAT (NEUT) % 70.0 % (test code = 770-8) IMM GRAN % (test code 0.70 % = 1018735206) LYMPH % (test code = 20.5 % 736-9) MONO % (test code = 7.1 % 5905-5) EOS % (test code = 1.0 % 713-8) BASO % (test code = 0.7 % 706-2) GRAN MAT x10^3(ANC) 9.44 10*3/uL 1.99-6.95 H (test code = 0562932305) IMM GRAN x10^3 (test 0.09 10*3/uL 0.00-0.06 H code = 9214722010) LYMPH x10^3 (test code 2.76 10*3/uL 1.09-3.23 = 731-0) MONO x10^3 (test code 0.96 10*3/uL 0.36-1.02 = 742-7) EOS x10^3 (test code = 0.13 10*3/uL 0.06-0.53 711-2) BASO x10^3 (test code 0.10 10*3/uL 0.01-0.09 H = 704-7) Lab Interpretation Abnormal (test code = 46192-2) [facility]land[facility] Culture - Peripheral # [id number] 13:01:00 Test Item Value Reference Range Interpretation Comments Blood Culture-Aerobic No organisms No growth Previo us (test code = 45583-3) isolated prelim inary verified result was Culture In Progress on 12/11/2020 at 100 1 CSTPrevious preliminary verified result was No growth a t 24 hours on 12/12/2020 at 070 1 CSTPrevious preliminary verified result was No growth a t 48 hours on 12/13/2020 at 070 1 CSTPrevious preliminary verified result was No growth a t 72 hours on 12/14/2020 at 070 1 [employer] Blood No organisms No growth Previous Culture-Anaerobic isolated preliminar y (test code = 40218-1) verifi ed result was Culture In Progress on 12/11/2020 at 100 1 CSTPrevious preliminary verified result was No growth a t 24 hours on 12/12/2020 at 070 1 CSTPrevious preliminary verified result was No growth a t 48 hours on 12/13/2020 at 070 1 CSTPrevious preliminary verified result was No growth a t 72 hours on 12/14/2020 at 070 1 [employer] Lab Interpretation Normal (test code = 18942-0) [facility] Culture - Peripheral # [id number] 13:01:00 Test Item Value Reference Range Interpretation Comments Blood Culture-Aerobic No organisms No growth Previo us (test code = 55623-8) isolated prelim inary verified result was Culture In Progress on 12/11/2020 at 100 1 CSTPrevious preliminary verified result was No growth a t 24 hours on 12/12/2020 at 070 1 CSTPrevious preliminary verified result was No growth a t 48 hours on 12/13/2020 at 070 1 CSTPrevious preliminary verified result was No growth a t 72 hours on 12/14/2020 at 070 1 [employer] Blood No organisms No growth Previous Culture-Anaerobic isolated preliminar y (test code = 14985-4) verifi ed result was Culture In Progress on 12/11/2020 at 100 1 CSTPrevious preliminary verified result was No growth a t 24 hours on 12/12/2020 at 070 1 CSTPrevious preliminary verified result was No growth a t 48 hours on 12/13/2020 at 070 1 CSTPrevious preliminary verified result was No growth a t 72 hours on 12/14/2020 at 070 1 [employer] Lab Interpretation Normal (test code = 59412-8) [facility] GLUCOSE (AUTOMATED)2020-12-16 04:01:00 Test Item Value Reference Range Interpretation Comments POCT GLU (test code = 8161274269) 156 mg/dL 70-110 H Lab Interpretation (test code = Abnormal 46198-6) [facility] GLUCOSE (AUTOMATED)2020-12-16 00:24:00 Test Item Value Reference Range Interpretation Comments POCT GLU (test code = 5025157186) 115 mg/dL 70-110 H Lab Interpretation (test code = Abnormal 72293-2) [facility] CHEST PULMONARY [id number] 23:34:55No pulmonary emboli. No interval change in [...] stableappearance of intra and extrahepatic biliary ductal dilatation.[facility] GLUCOSE (AUTOMATED)2020-12-15 19:28:00 Test Item Value Reference Range Interpretation Comments POCT GLU (test code = 9112540988) 140 mg/dL 70-110 H Lab Interpretation (test code = Abnormal 59198-0) [facility]2021-[facility]-05 15:26:00 Test Item Value Reference Range Interpretation Comments MAGNESIUM (test code = 5090705346) 2.2 mg/dL 1.7-2.4 Lab Interpretation (test code = Normal 10292-5) [facility] GLUCOSE (AUTOMATED)2020-12-15 15:15:00 Test Item Value Reference Range Interpretation Comments POCT GLU (test code = 4194957347) 181 mg/dL 70-110 H Lab Interpretation (test code = Abnormal 63043-1) [facility] METABOLIC PANEL (NA, K, CL, CO2, GLUCOSE, BUN, CREATININE, CA)2020-12-15 13:07:00 Test Item Value Reference Range Interpretation Comments NA (test code = 136 mmol/L 135-145 5635935682) K (test code = 3.6 mmol/L 3.5-5.0 2876385545) CL (test code = 96 mmol/L 98-108 L 8630618984) CO2 TOTAL (test code = 29 mmol/L 23-31 8584063237) AGAP (test code = 2-16 3975502643) BUN (test code = 12 mg/dL 7-23 9778069250) GLUCOSE (test code = 183 mg/dL 70-110 H 4447493611) CREATININE (test code = 0.70 mg/dL 0.60-1.25 9920271365) CALCIUM (test code = 9.2 mg/dL 8.6-10.6 1366392604) eGFR Calculation mL/min/1.73m2 (Non-) (test code = 1251433669) eGFR Calculation mL/min/1.73m2 () (test code = 3908406453) JAMES (test code = JAMES) Association of [...] tests). Lab Interpretation Abnormal (test code = 79043-0) [facility] WITH [id number] 12:32:00 Test Item Value Reference Range Interpretation Comments WBC (test code = See_Comment H [Automated 4990-2) message] The system which generated this result transmit ronan reference range : 4.20 - 10.70 10*3/?L. The reference range was not used to interpret this result as normal/abnormal . RBC (test code = See_Comment H [Automated 159-8) message] The system which generated this result [...] RDW-SD (test code = 44.4 fL 38.5-51.6 08991-8) RDW-CV (test code = 17.7 % 12.1-15.4 H 788-0) PLT (test code = See_Comment H [Automated 777-3) message] The system which generated this result transmit ronan reference range : 150 - 328 10*3/ ?L. The reference range was not u sed to interpret th is result as normal/abnormal . MPV (test code = 8.1 fL 9.8-13.0 L 92271-7) NRBC/100 WBC (test See_Comment [Automat ed code = 6516071830) message] The system which generated this result transmit ronan reference range : 0.0 - 10.0 /100 WBCs. The reference range was not used to interpret this result as normal/abnormal . NRBC x10^3 (test code <0.01 See_Comment [Auto mated = 5669081461) message] The system which generated this result transmit ronan reference range : 10*3/?L. The reference range was not used to interpret this result as normal/abnormal . GRAN MAT (NEUT) % 74.5 % (test code = 770-8) IMM GRAN % (test code 0.70 % = 3092130285) LYMPH % (test code = 17.4 % 736-9) MONO % (test code = 6.8 % 5905-5) EOS % (test code = 0.2 % 713-8) BASO % (test code = 0.4 % 706-2) GRAN MAT x10^3(ANC) 11.99 10*3/uL 1.99-6.95 H (test code = 0646263888) IMM GRAN x10^3 (test 0.11 10*3/uL 0.00-0.06 H code = 6330026619) LYMPH x10^3 (test code 2.80 10*3/uL 1.09-3.23 = 731-0) MONO x10^3 (test code 1.10 10*3/uL 0.36-1.02 H = 742-7) EOS x10^3 (test code = 0.03 10*3/uL 0.06-0.53 L 711-2) BASO x10^3 (test code 0.06 10*3/uL 0.01-0.09 = 704-7) Lab Interpretation Abnormal (test code = 14033-5) [facility] GLUCOSE (AUTOMATED)2020-12-15 04:16:00 Test Item Value Reference Range Interpretation Comments POCT GLU (test code = 1570979121) 200 mg/dL 70-110 H Lab Interpretation (test code = Abnormal 19292-0) [facility]1 (THIAMINE), WHOLE [id number] 00:30:00 Test Item Value Reference Range Interpretation Comments Vitamin B1, Whole 136 nmol/L 70-180 INTERPRETI VE INFORMATION: Blood (test code = Vitamin B 1, Whole Blood 50639-9) This assay júnior ures the concentration o f thiamine diphosphate (TD P), the primary active form of vitamin B1. Nick roximately 90 percent of v itamin B1 present in whol e blood is TDP. Thiamine a nd thiamine monoph osphate, which comprise the remaining 10 pe rcent, are not measured. T his test was developed a nd its performance characteristics determined by [facility]. I t has not been cleared or approved by the [place] Food and Drug Administration. This test was performed i n a CLIA certified labor atory and is intended for clinical purposes.Perfor med By: [facility] [place] [address] [id number] aboratory Director: Namrata Klein MD [facility] GLUCOSE (AUTOMATED)2020-12-14 23:35:00 Test Item Value Reference Range Interpretation Comments POCT GLU (test code = 3990786219) 151 mg/dL 70-110 H Lab Interpretation (test code = Abnormal 80462-1) [facility] GLUCOSE (AUTOMATED)2020-12-14 19:19:00 Test Item Value Reference Range Interpretation Comments POCT GLU (test code = 8131020134) 193 mg/dL 70-110 H Lab Interpretation (test code = Abnormal 53314-3) [facility] GLUCOSE (AUTOMATED)2020-12-14 15:22:00 Test Item Value Reference Range Interpretation Comments POCT GLU (test code = 9828128063) 221 mg/dL 70-110 H Lab Interpretation (test code = Abnormal 96597-5) [facility] GLUCOSE (AUTOMATED)2020-12-14 02:37:00 Test Item Value Reference Range Interpretation Comments POCT GLU (test code = 6720027780) 210 mg/dL 70-110 H Lab Interpretation (test code = Abnormal 17117-7) [facility] GLUCOSE (AUTOMATED)2020-12-13 23:33:00 Test Item Value Reference Range Interpretation Comments POCT GLU (test code = 8202575966) 182 mg/dL 70-110 H Lab Interpretation (test code = Abnormal 76406-3) [facility] GLUCOSE (AUTOMATED)2020-12-13 18:09:00 Test Item Value Reference Range Interpretation Comments POCT GLU (test code = 3500051593) 150 mg/dL 70-110 H Lab Interpretation (test code = Abnormal 51106-4) [facility] METABOLIC PANEL (NA, K, CL, CO2, GLUCOSE, BUN, CREATININE, CA)2020-12-13 16:27:00 Test Item Value Reference Range Interpretation Comments NA (test code = 136 mmol/L 135-145 9712561744) K (test code = 3.7 mmol/L 3.5-5.0 9501226677) CL (test code = 96 mmol/L 98-108 L 7596210017) CO2 TOTAL (test code = 29 mmol/L 23-31 4377174828) AGAP (test code = 2-16 5207921576) BUN (test code = 6 mg/dL 7-23 L 7059199760) GLUCOSE (test code = 212 mg/dL 70-110 H 2239937626) CREATININE (test code = 0.61 mg/dL 0.60-1.25 4246594371) CALCIUM (test code = 9.5 mg/dL 8.6-10.6 1378094820) eGFR Calculation mL/min/1.73m2 (Non-) (test code = 0407608776) eGFR Calculation mL/min/1.73m2 () (test code = 4406044617) JAMES (test code = JAMES) Association of [...] tests). Lab Interpretation Abnormal (test code = 85514-8) [facility] WITH [id number] 16:10:00 Test Item Value Reference Range Interpretation Comments WBC (test code = See_Comment H [Automated 6106-2) message] The sy stem which generated this result transmitted reference range : 4.20 - 10.70 10*3/?L. The reference range was not used to interpret this result as normal/abnormal . RBC (test code = See_Comment H [Automated 469-8) message] The sy stem which [...] RDW-SD (test code = 43.3 fL 38.5-51.6 80409-6) RDW-CV (test code = 16.2 % 12.1-15.4 H 788-0) PLT (test code = See_Comment H [Automated 777-3) message] The sy stem which generated this result transmitted reference range : 150 - 328 10*3/ ?L. The reference r torito was not used to interpret this result as normal/abnormal . MPV (test code = 8.2 fL 9.8-13.0 L 35931-4) NRBC/100 WBC (test See_Comment [Automat ed code = 3693591897) message] The system which generated this result transmitted reference range : 0.0 - 10.0 /100 WBCs. The refer ence range was not u sed to interpret th is result as normal/abnormal . NRBC x10^3 (test code <0.01 See_Comment [Auto mated = 2340222167) message] The s ystem which generated this result transmitted reference range : 10*3/?L. The reference range was not used to interpret this result as normal/abnormal . GRAN MAT (NEUT) % 86.2 % (test code = 770-8) IMM GRAN % (test code 0.70 % = 6021498658) LYMPH % (test code = 10.2 % 736-9) MONO % (test code = 2.5 % 5905-5) EOS % (test code = 0.1 % 713-8) BASO % (test code = 0.3 % 706-2) GRAN MAT x10^3(ANC) 9.61 10*3/uL 1.99-6.95 H (test code = 1917321082) IMM GRAN x10^3 (test 0.08 10*3/uL 0.00-0.06 H code = 6936187366) LYMPH x10^3 (test code 1.14 10*3/uL 1.09-3.23 = 731-0) MONO x10^3 (test code 0.28 10*3/uL 0.36-1.02 L = 742-7) EOS x10^3 (test code = <0.03 0.06-0.53 L 711-2) BASO x10^3 (test code 0.03 10*3/uL 0.01-0.09 = 704-7) Lab Interpretation Abnormal (test code = 21169-6) [facility]2020-12-13 14:16:00 Test Item Value Reference Range Interpretation Comments POCT GLU (test code = 4894875430) 236 mg/dL 70-110 H Lab Interpretation (test code = Abnormal 98068-1) [facility] ONLY COVID [id number] 04:58:00COVID DMT InterpretationInterpretation/Recommendations: Molecular NAAT Tests for [...] testing the patient has had at [facility], including molecular NAAT testing (more commonly known as PCR testing and Rapid ID Now testing) and antibody testing. It does not take into account any testingthat a patient has had outside of the [facility] medical record. [facility] LABORATORY SERVICESCOVID LiailnaRNHZ-NoI-6 Rapid ID NOW (no units) ? ? Date ? Value ? 12/11/2020 ? Not Detected ? ? ? 11/16/2020 ? Not Detected ? ? ? 08/21/2020 ? Not Detected ? [facility] 2020-12-13 03:11:00 Test Item Value Reference Range Interpretation Comments POCT GLU (test code = 0066166205) 171 mg/dL 70-110 H Lab Interpretation (test code = Abnormal 74304-5) [facility] GLUCOSE (AUTOMATED)2020-12-13 00:00:00 Test Item Value Reference Range Interpretation Comments POCT GLU (test code = 9943057904) 118 mg/dL 70-110 H Lab Interpretation (test code = Abnormal 01485-9) [facility] GLUCOSE (AUTOMATED)2020-12-12 20:29:00 Test Item Value Reference Range Interpretation Comments POCT GLU (test code = 4065650475) 173 mg/dL 70-110 H Lab Interpretation (test code = Abnormal 18417-3) [facility] ABDOMEN [id number] 19:56:17 1. ?Hepatic steatosis. However, limited evaluation [...] main portal veinwasevaluated with color Doppler imaging. Weight Control Engineer images were obtainedfor the record. COMPARISON: Ultrasound [...] portal vein wasevaluated with color Doppler imaging. Weight Control Engineer images wereobtainedfor the record.COMPARISON: Ultrasound abdomen 11/17/2028. [...] reviewed this study and agree with the abovereport.[facility]2020-12-12 19:24:00 Test Item Value Reference Range Interpretation Comments POCT GLU (test code = 1397399981) 230 mg/dL 70-110 H Lab Interpretation (test code = Abnormal 16151-3) [facility] CHEST 1 [id number] 15:16:46 Low lung volumes with mild perihilar [...] reviewed this study and agree with theabove report.[facility]2020-12-12 14:34:00 Test Item Value Reference Range Interpretation Comments POCT GLU (test code = 4021377644) 225 mg/dL 70-110 H Lab Interpretation (test code = Abnormal 08149-9) [facility]landURINE [id number] 13:28:00 Test Item Value Reference Range Interpretation Comments URINE CULTURE (test < 10,000 CFU/mL mixed code = 630-4) aerobic organisms - suggests endogenous microbial contamination [facility]land[facility] Met[facility] Panel (NA, K, CL, CO2, GLUCOSE, BUN, CREATININE, CA)2020-12-12 10:05:00 Test Item Value Reference Range Interpretation Comments NA (test code = 136 mmol/L 135-145 4135952430) K (test code = 3.5 mmol/L 3.5-5.0 5224427105) CL (test code = 100 mmol/L 98-108 1796443825) CO2 TOTAL (test code = 31 mmol/L 23-31 1942906477) AGAP (test code = 2-16 0527011225) BUN (test code = 7 mg/dL 7-23 8369622523) GLUCOSE (test code = 259 mg/dL 70-110 H 9482965228) CREATININE (test code = 0.63 mg/dL 0.60-1.25 7522439466) CALCIUM (test code = 8.5 mg/dL 8.6-10.6 L 2928673563) eGFR Calculation mL/min/1.73m2 (Non-) (test code = 9457558773) eGFR Calculation mL/min/1.73m2 () (test code = 4292492387) JAMES (test code = JAMES) Association of [...] tests). Lab Interpretation Abnormal (test code = 46287-1) [facility] MainlandMagnesium [id number] 10:05:00 Test Item Value Reference Range Interpretation Comments MAGNESIUM (test code = 8132424617) 1.9 mg/dL 1.7-2.4 Lab Interpretation (test code = Normal 58876-8) [facility] with [id number] 09:48:00 Test Item Value Reference Range Interpretation Comments WBC (test code = See_Comment [Automated 2975-2) message] The sy stem which generated this result transmitted reference range : 4.20 - 10.70 10*3/?L. The reference range was not used to interpret this result as normal/abnormal . RBC (test code = See_Comment [Automated 259-0) message] The sy stem which generated this [...] RDW-SD (test code = 46.0 fL 38.5-51.6 52532-2) RDW-CV (test code = 16.1 % 12.1-15.4 H 788-0) PLT (test code = See_Comment H [Automated 777-3) message] The sy stem which generated this result transmitted reference range : 150 - 328 10*3/ ?L. The reference r torito was not used to interpret this result as normal/abnormal . MPV (test code = 8.6 fL 9.8-13.0 L 42211-4) NRBC/100 WBC (test See_Comment [Automat ed code = 6999376974) message] The system which generated this result transmitted reference range : 0.0 - 10.0 /100 WBCs. The refer ence range was not u sed to interpret th is result as normal/abnormal . NRBC x10^3 (test code <0.01 See_Comment [Auto mated = 4591694922) message] The s ystem which generated this result transmitted reference range : 10*3/?L. The reference range was not used to interpret this result as normal/abnormal . GRAN MAT (NEUT) % 70.2 % (test code = 770-8) IMM GRAN % (test code 0.30 % = 5185242776) LYMPH % (test code = 18.8 % 736-9) MONO % (test code = 5.0 % 5905-5) EOS % (test code = 5.2 % 713-8) BASO % (test code = 0.5 % 706-2) GRAN MAT x10^3(ANC) 6.05 10*3/uL 1.99-6.95 (test code = 0867538897) IMM GRAN x10^3 (test 0.03 10*3/uL 0.00-0.06 code = 3013449786) LYMPH x10^3 (test code 1.62 10*3/uL 1.09-3.23 = 731-0) MONO x10^3 (test code 0.43 10*3/uL 0.36-1.02 = 742-7) EOS x10^3 (test code = 0.45 10*3/uL 0.06-0.53 711-2) BASO x10^3 (test code 0.04 10*3/uL 0.01-0.09 = 704-7) Lab Interpretation Abnormal (test code = 69965-8) [facility] GLUCOSE (AUTOMATED)2020-12-12 03:42:00 Test Item Value Reference Range Interpretation Comments POCT GLU (test code = 196 mg/dL 70-110 H Notifi ed Provider 1823276847) Lab Interpretation (test Abnormal code = 54331-0) [facility]land[facility]OLATE2021-03-02 02:24:00 Test Item Value Reference Range Interpretation Comments FOLATE SER (test code = 6456986545) 5.8 ng/mL 3.0-20.0 Lab Interpretation (test code = Normal 00034-8) [facility]landVITAMIN B12, [id number] 00:55:00 Test Item Value Reference Range Interpretation Comments VIT B12 (test code = 844 pg/mL 240-930 2828895733) JAMES (test code = JAMES) Biotin has been reported to cause a positive bias, interpret results relative to patient's use of biotin. Lab Interpretation (test Normal code = 47585-3) [facility] GLUCOSE (AUTOMATED)2020-12-12 00:14:00 Test Item Value Reference Range Interpretation Comments POCT GLU (test code = 5955916552) 164 mg/dL 70-110 H Lab Interpretation (test code = Abnormal 68308-7) [facility]landCREATINE [id number] 23:42:00 Test Item Value Reference Range Interpretation Comments CK (test code = 7454057640) <20 33-194 L Lab Interpretation (test code = Abnormal 63742-3) [facility]landTHYROID STIMULATING [id number] 23:17:00 Test Item Value Reference Range Interpretation Comments TSH (test code = See_Comment Biotin has been [id number]) reported to cau se a negative bias, interpret resul ts relative to johnny bills's use of biotin. [Automated mess age] The system [employer] App generated this result transmitted ref erence range: 0.45 - 4 .70 mIU/L. The refe rence range was not u sed to interpret this result as normal/abnor mal. Lab Interpretation (test Normal code = 53460-3) [facility] H[facility] 3 VW [id number] 21:41:53No appreciable fracture lines. RL: 6200 ICAL [...] No osseous erosions.IMPRESSIONNo appreciable fracture lines.RL: 6200 [facility] 20:00:00 Test Item Value Reference Range Interpretation Comments Procalcitonin (test 0.13 ng/mL <0.07 H code = 3550942268) JAMES (test code = JAMES) INTERPRETATION OF [...] lung abscess/empyema. For further information please refer to:[email or web address] Lab Interpretation Abnormal (test code = 86506-7) [facility]2020-12-11 19:07:00 Test Item Value Reference Range Interpretation Comments POCT GLU (test code = 8233524398) 274 mg/dL 70-110 H Lab Interpretation (test code = Abnormal 79350-9) [facility]NESIUM2021-03-01 18:31:00 Test Item Value Reference Range Interpretation Comments MAGNESIUM (test code = 9821688498) 1.9 mg/dL 1.7-2.4 Lab Interpretation (test code = Normal 05779-2) [facility]landFERRITIN [id number] 18:31:00 Test Item Value Reference Range Interpretation Comments FERRITIN (test code = 178.0 ng/mL 18.0-464.0 2074353229) JAMES (test code = JAMES) Biotin has been reported to cause a negative bias, interpret results relative to patient's use of biotin. Lab Interpretation (test Normal code = 51768-1) [facility] HEAD WO [id number] 14:36:47 No acute intracranial abnormality. Dilated ventricles [...] reviewed this study and agree with the abovereport.[facility]landURINALYSIS2021-03-01 14:28:00 Test Item Value Reference Range Interpretation Comments APPEARANCE (test code = Clear Clear 4981923732) COLOR (test code = Yellow Yellow 4701653071) PH (test code = 4.8-8.0 1910578712) SP GRAVITY (test code = 1.003-1.030 3335525580) GLU U QUAL (test code = 500 mg/dL Normal A 8889831714) BLOOD (test code = Negative Negative 0234583294) KETONES (test code = 5 mg/dL Negative A 0057570533) PROTEIN (test code = Negative Negative 2887-8) UROBILIN (test code = Normal Normal 3678356381) BILIRUBIN (test code = Negative Negative 9476578429) NITRITE (test code = Negative Negative 9644126358) LEUK RYAN (test code = Negative Negative 7471191544) RBC/HPF (test code = See_Comment [Autom ated message] 2465145778) The system [employer] App generated this result transmit ronan reference range : 0 - 3 HPF. The refe rence range was not u sed to interpret th is result as normal/abnormal . WBC/HPF (test code = See_Comment [Autom ated message] 7163625202) The system [employer] generated this result transmit ronan reference range : 0 - 5 HPF. The refe rence range was not u sed to interpret th is result as normal/abnormal . BACTERIA (test code = Negative Negative 2754843019) MUCOUS (test code = Slight Negative LPF A 8907024567) SQ EPITH (test code = HPF 9789814984) Lab Interpretation (test Abnormal code = 92281-2) [facility]COVID-19 (ID NOW RAPID TESTING)2020-12-11 13:10:00 Test Item Value Reference Range Interpretation Comments SARS-CoV-2 Rapid ID NOW Not Detected Not Detected (test code = 61557-3) JAMES (test code = JAMES) ID NOW COVID-19 Assay is an isothermal nucleic acid amplification test intended for the qualitative detection of nucleic acid from SARS-CoV-2 viral RNA in nasopharyngeal (TRAVELING CLERK) specimens. It is used under Emergency Use [...] indicated. Lab Interpretation Normal (test code = 10398-1) [facility]. METABOLIC PANEL (18285)2020-12-11 12:29:00 Test Item Value Reference Range Interpretation Comments NA (test code = 136 mmol/L 135-145 0662496761) K (test code = 3.5 mmol/L 3.5-5.0 3696749500) CL (test code = 95 mmol/L 98-108 L 0081114789) CO2 TOTAL (test code = 35 mmol/L 23-31 H 1229770553) AGAP (test code = 2-16 0176995718) BUN (test code = 9 mg/dL 7-23 0814106367) GLUCOSE (test code = 329 mg/dL 70-110 H 2286894390) CREATININE (test code = 0.72 mg/dL 0.60-1.25 8563049646) TOTAL BILI (test code = 0.6 mg/dL 0.1-1.5 5025853162) CALCIUM (test code = 9.0 mg/dL 8.6-10.6 1167363322) T PROTEIN (test code = 6.8 g/dL 6.3-8.2 1023261167) ALBUMIN (test code = 3.8 g/dL 3.5-5.0 6181038061) ALK PHOS (test code = 288 U/L 34-122 H 0892055074) ALTv (test code = 46 U/L 5-50 1742-6) AST(SGOT) (test code = 38 U/L 13-40 5576678803) eGFR Calculation mL/min/1.73m2 (Non-) (test code = 4870027531) eGFR Calculation mL/min/1.73m2 () (test code = 2163542980) JAMES (test code = JAMES) Association of [...] tests). Lab Interpretation Abnormal (test code = 87974-6) [facility]landLactic Acid Whole [id number] 12:23:00 Test Item Value Reference Range Interpretation Comments LACTIC ACID (test code = 2.09 mmol/L 0.50-2.20 5059560454) Lab Interpretation (test code = Normal 33574-2) [facility] WITH [id number] 12:17:00 Test Item Value Reference Range Interpretation [...] RDW-SD (test code = 44.9 fL 38.5-51.6 08964-7) RDW-CV (test code = 15.9 % 12.1-15.4 H 788-0) PLT (test code = See_Comment H [Automated 777-3) message] The sy stem which generated this result transmitted reference range : 150 - 328 10*3/ ?L. The reference r torito was not used to interpret this result as normal/abnormal . MPV (test code = 8.3 fL 9.8-13.0 L 85461-3) NRBC/100 WBC (test See_Comment [Automat ed code = 8389605807) message] The system which generated this result transmitted reference range : 0.0 - 10.0 /100 WBCs. The refer ence range was not u sed to interpret th is result as normal/abnormal . NRBC x10^3 (test code <0.01 See_Comment [Auto mated = 2145285249) message] The s ystem which generated this result transmitted reference range : 10*3/?L. The reference range was not used to interpret this result as normal/abnormal . GRAN MAT (NEUT) % 77.9 % (test code = 770-8) IMM GRAN % (test code 0.50 % = 1902246095) LYMPH % (test code = 12.2 % 736-9) MONO % (test code = 5.2 % 5905-5) EOS % (test code = 3.7 % 713-8) BASO % (test code = 0.5 % 706-2) GRAN MAT x10^3(ANC) 9.57 10*3/uL 1.99-6.95 H (test code = 2317507418) IMM GRAN x10^3 (test 0.06 10*3/uL 0.00-0.06 code = 1275073820) LYMPH x10^3 (test code 1.50 10*3/uL 1.09-3.23 = 731-0) MONO x10^3 (test code 0.64 10*3/uL 0.36-1.02 = 742-7) EOS x10^3 (test code = 0.46 10*3/uL 0.06-0.53 711-2) BASO x10^3 (test code 0.06 10*3/uL 0.01-0.09 = 704-7) Lab Interpretation Abnormal (test code = 55898-4) [facility] ONLY COVID [id number] 18:43:00COVID DMT InterpretationInterpretation/Recommendations: Molecular NAAT Test Results [...] a nasopharyngeal sample, there is approximately a fsh-ai-cekmo chance that the patient was infected and [...] upon aggregate data pooled from the [facility] medical recordincluding both current and prior COVID-19 related testing results for the following tests [facility]:A. Tests for the Identification of SARS-CoV-2 RNA:SARS-CoV-2 PCR assays including Wayland Aptima, Wayland Fusion, Barrett RealTime, and Link_A_ Media Xpert Xpress. SARS-CoV-2 Rapid ID NOW by the ID NOW assay. ? B. Tests for the Identification of SARS-CoV-2 Antibodies: Chemiluminescent immunoassays including Access SARS-CoV-2 IgM (DXI 600), TestSoupS Qsop-BQAR-ImI-2 IgG (Vitros 5600 and Vitros 3600), and Barrett SARS-CoV-2 IgG (TYPESETTER PERFORATOR OPERATOR I System). These interpretation comments assume that only the above testing was utilized and that the approved acceptable specimen type(s) were used for a given test. These interpretations are autopopulated into My1login based on computerized algorithms matching an interpretation code number to the patient's set of test results. While a clinical pathologist evaluates the combinations for clinical accuracy, clinical correlation is recommended as it may not take into account very remote prior testing. Furthermore, it does not consider testing a patient may have had outside of the [facility] system. Additionally, it should be noted that the computerized algorithm treats the results for PCR testing and Rapid ID NOW testing (also PCR) synonymously, and thus, refers to both testing methodologies as PCR tests. Given that the sensitivity of [facility]'s Rapid ID NOW testing platform is [...] pathogen panel may be beneficialin this setting. [facility] LABORATORY SERVICESCOVID UvxjizbADTB-PhH-6 Rapid ID NOW (no units) ? ? Date ? Value ? 08/21/2020 ? Not Detected ? [facility] SERVICESUnP[facility]2020-08-23 18:25:00 Test Item Value Reference Range Interpretation Comments POCT GLU (test code = 8407390048) 297 mg/dL 70-110 H Lab Interpretation (test code = Abnormal 87762-2) [facility] GLUCOSE (AUTOMATED)2020-08-23 14:25:00 Test Item Value Reference Range Interpretation Comments POCT GLU (test code = 8658689744) 181 mg/dL 70-110 H Lab Interpretation (test code = Abnormal 10065-0) [facility] Metabolic Panel (NA, K, CL, CO2, GLUCOSE, BUN, CREATININE, CA)2020-08-23 11:45:00 Test Item Value Reference Range Interpretation Comments NA (test code = 132 mmol/L 135-145 L 1111390098) K (test code = 4.0 mmol/L 3.5-5 2320069249) CL (test code = 96 mmol/L 98-108 L 2148911114) CO2 TOTAL (test code = 33 mmol/L 23-31 H 6893755424) AGAP (test code = 2-16 2243402122) BUN (test code = 9 mg/dL 7-23 9793865558) GLUCOSE (test code = 176 mg/dL 70-110 H 7168710581) CREATININE (test code = 0.66 mg/dL 0.6-1.25 2608962041) CALCIUM (test code = 8.5 mg/dL 8.6-10.6 L 8163611462) eGFR Calculation mL/min/1.73m2 (Non-) (test code = 4297630823) eGFR Calculation mL/min/1.73m2 () (test code = 7696805930) JAMES (test code = JAMES) Association of [...] tests). Lab Interpretation Abnormal (test code = 32525-9) [facility]landMagnesium [id number] 11:45:00 Test Item Value Reference Range Interpretation Comments MAGNESIUM (test code = 6172365669) 2.0 mg/dL 1.7-2.4 Lab Interpretation (test code = Normal 05991-0) [facility]landCB with [id number] 11:38:00 Test Item Value Reference Range Interpretation Comments WBC (test code = See_Comment [Automated 2690-2) message] The sy stem which generated this result transmitted reference range : 4.20 - 10.70 10*3/?L. The reference range was not used to interpret this result as normal/abnormal . RBC (test code = See_Comment [Automated 319-8) message] The sy stem which generated this [...] RDW-SD (test code = 41.8 fL 38.5-51.6 37709-4) RDW-CV (test code = 14.3 % 12.1-15.4 788-0) PLT (test code = See_Comment H [Automated 777-3) message] The sy stem which generated this result transmitted reference range : 150 - 328 10*3/ ?L. The reference r torito was not used to interpret this result as normal/abnormal . MPV (test code = 8.0 fL 9.8-13 L 22099-1) NRBC/100 WBC (test See_Comment [Automat ed code = 4287968680) message] The system which generated this result transmitted reference range : 0.0 - 10.0 /100 WBCs. The refer ence range was not u sed to interpret th is result as normal/abnormal . NRBC x10^3 (test code <0.01 See_Comment [Auto mated = 9037471869) message] The s ystem which generated this result transmitted reference range : 10*3/?L. The reference range was not used to interpret this result as normal/abnormal . GRAN MAT (NEUT) % 61.5 % (test code = 770-8) IMM GRAN % (test code 2.00 % = 5092565506) LYMPH % (test code = 25.5 % 736-9) MONO % (test code = 6.3 % 5905-5) EOS % (test code = 3.7 % 713-8) BASO % (test code = 1.0 % 706-2) GRAN MAT x10^3(ANC) 5.29 10*3/uL 1.99-6.95 (test code = 8479070139) IMM GRAN x10^3 (test 0.17 10*3/uL 0-0.06 H code = 3870310193) LYMPH x10^3 (test code 2.19 10*3/uL 1.09-3.23 = 731-0) MONO x10^3 (test code 0.54 10*3/uL 0.36-1.02 = 742-7) EOS x10^3 (test code = 0.32 10*3/uL 0.06-0.53 711-2) BASO x10^3 (test code 0.09 10*3/uL 0.01-0.09 = 704-7) Lab Interpretation Abnormal (test code = 91037-5) [facility] GLUCOSE (AUTOMATED)2020-08-23 10:22:00 Test Item Value Reference Range Interpretation Comments POCT GLU (test code = 2558618422) 164 mg/dL 70-110 H Lab Interpretation (test code = Abnormal 05622-8) [facility] GLUCOSE (AUTOMATED)2020-08-23 05:56:00 Test Item Value Reference Range Interpretation Comments POCT GLU (test code = 7278140815) 242 mg/dL 70-110 H Lab Interpretation (test code = Abnormal 94108-2) [facility] GLUCOSE (AUTOMATED)2020-08-23 03:02:00 Test Item Value Reference Range Interpretation Comments POCT GLU (test code = 3631962644) 210 mg/dL 70-110 H Lab Interpretation (test code = Abnormal 93630-2) [facility] GLUCOSE (AUTOMATED)2020-08-22 23:40:00 Test Item Value Reference Range Interpretation Comments POCT GLU (test code = 5191099673) 267 mg/dL 70-110 H Lab Interpretation (test code = Abnormal 74396-3) [facility] GLUCOSE (AUTOMATED)2020-08-22 19:08:00 Test Item Value Reference Range Interpretation Comments POCT GLU (test code = 7937503594) 191 mg/dL 70-110 H Lab Interpretation (test code = Abnormal 61193-1) [facility] GLUCOSE (AUTOMATED)2020-08-22 13:50:00 Test Item Value Reference Range Interpretation Comments POCT GLU (test code = 5173645153) 174 mg/dL 70-110 H Lab Interpretation (test code = Abnormal 51143-5) [facility]landURINE [id number] 12:59:00 Test Item Value Reference Range Interpretation Comments URINE CULTURE (test No aerobic growth (< code = 630-4) 1000 CFU/mL) [facility]landCBC with [id number] 11:28:00 Test Item Value Reference Range Interpretation Comments WBC (test code = See_Comment [Automated 8190-2) message] The sy stem which generated this result transmitted reference range : 4.20 - 10.70 10*3/?L. The reference range was not used to interpret this result as normal/abnormal . RBC (test code = See_Comment L [Automated 689-8) message] The sy stem which generated this [...] RDW-SD (test code = 42.5 fL 38.5-51.6 62997-6) RDW-CV (test code = 14.5 % 12.1-15.4 788-0) PLT (test code = See_Comment H [Automated 777-3) message] The sy stem which generated this result transmitted reference range : 150 - 328 10*3/ ?L. The reference r torito was not used to interpret this result as normal/abnormal . MPV (test code = 8.0 fL 9.8-13 L 88105-9) NRBC/100 WBC (test See_Comment [Automat ed code = 4808018379) message] The system which generated this result transmitted reference range : 0.0 - 10.0 /100 WBCs. The refer ence range was not u sed to interpret th is result as normal/abnormal . NRBC x10^3 (test code <0.01 See_Comment [Auto mated = 7599414477) message] The s ystem which generated this result transmitted reference range : 10*3/?L. The reference range was not used to interpret this result as normal/abnormal . GRAN MAT (NEUT) % 69.1 % (test code = 770-8) IMM GRAN % (test code 2.20 % = 3323752943) LYMPH % (test code = 20.9 % 736-9) MONO % (test code = 5.8 % 5905-5) EOS % (test code = 1.0 % 713-8) BASO % (test code = 1.0 % 706-2) GRAN MAT x10^3(ANC) 6.51 10*3/uL 1.99-6.95 (test code = 6746424589) IMM GRAN x10^3 (test 0.21 10*3/uL 0-0.06 H code = 6859959398) LYMPH x10^3 (test code 1.97 10*3/uL 1.09-3.23 = 731-0) MONO x10^3 (test code 0.55 10*3/uL 0.36-1.02 = 742-7) EOS x10^3 (test code = 0.09 10*3/uL 0.06-0.53 711-2) BASO x10^3 (test code 0.09 10*3/uL 0.01-0.09 = 704-7) BASO STIPPLING (test Present A code = 703-9) BANDS (test code = Increased A 7001271312) TOXIC CHANGES (test Present A code = 803-7) Lab Interpretation Abnormal (test code = 54574-9) [facility] Metabolic Panel (NA, K, CL, CO2, GLUCOSE, BUN, CREATININE, CA)2020-08-22 11:12:00 Test Item Value Reference Range Interpretation Comments NA (test code = 135 mmol/L 135-145 7711518116) K (test code = 3.6 mmol/L 3.5-5 9955687411) CL (test code = 99 mmol/L 98-108 0526082379) CO2 TOTAL (test code = 31 mmol/L 23-31 0270345429) AGAP (test code = 2-16 0637804467) BUN (test code = 9 mg/dL 7-23 5231164701) GLUCOSE (test code = 198 mg/dL 70-110 H 9754711508) CREATININE (test code = 0.72 mg/dL 0.6-1.25 1310295396) CALCIUM (test code = 8.3 mg/dL 8.6-10.6 L 9217585760) eGFR Calculation mL/min/1.73m2 (Non-) (test code = 1994907762) eGFR Calculation mL/min/1.73m2 () (test code = 8989437318) JAMES (test code = JAMES) Association of [...] tests). Lab Interpretation Abnormal (test code = 36790-1) [facility]landMagnesium [id number] 11:12:00 Test Item Value Reference Range Interpretation Comments MAGNESIUM (test code = 5598173855) 2.0 mg/dL 1.7-2.4 Lab Interpretation (test code = Normal 02656-8) [facility] MainlandLipid Panel (Total Cholesterol, Triglycerides, HDL) - [id number] 11:12:00 Test Item Value Reference Range Interpretation Comments CHOL (test code = 155 mg/dL 120-200 7305684993) HDL (test code = 42 mg/dL >40 2060044915) HDLC RATIO (test code = See_Comment [Au tomated message] 4607932397) The system [employer] generated this result transmit ronan reference range : <=5.0. The refe rence range was not u sed to interpret th is result as normal/abnormal . TRIG (test code = 186 mg/dL 30-170 H 0190422290) LDL CHOL (test code = 76 mg/dL See_Comment [Auto mated message] 29038-1) The system [employer] generated this result transmit ronan reference range : <=160. The refe rence range was not u sed to interpret th is result as normal/abnormal . VLDL (test code = 37 mg/dL 5-60 8094769314) Lab Interpretation (test Abnormal code = 50111-6) [facility]landHEPATIC FUNCTION PANEL (93089) (ALB,T.PRO,BILI T,BU/BC,ALT,AST,ALK PHOS)2020-08-22 11:12:00 Test Item Value Reference Range Interpretation Comments TOTAL BILI (test code = 5759594816) 0.6 mg/dL 0.1-1.1 BILI UNCON (test code = 4688021904) 0.2 mg/dL 0.1-1.1 BILI CONJ (test code = 7503735219) 0.0 mg/dL 0-0.3 T PROTEIN (test code = 1675713065) 6.0 g/dL 6.3-8.2 L ALBUMIN (test code = 1997847848) 2.8 g/dL 3.5-5 L ALK PHOS (test code = 0961637783) 222 U/L 34-122 H ALTv (test code = 1742-6) 27 U/L 5-50 AST(SGOT) (test code = 9332719550) 30 U/L 13-40 Lab Interpretation (test code = Abnormal 90277-0) [facility] GLUCOSE (AUTOMATED)2020-08-22 10:11:00 Test Item Value Reference Range Interpretation Comments POCT GLU (test code = 8064559569) 196 mg/dL 70-110 H Lab Interpretation (test code = Abnormal 62307-3) [facility] GLUCOSE (AUTOMATED)2020-08-22 07:15:00 Test Item Value Reference Range Interpretation Comments POCT GLU (test code = 5468424987) 183 mg/dL 70-110 H Lab Interpretation (test code = Abnormal 03010-2) [facility] GLUCOSE (AUTOMATED)2020-08-22 02:30:00 Test Item Value Reference Range Interpretation Comments POCT GLU (test code = 4534393071) 295 mg/dL 70-110 H Lab Interpretation (test code = Abnormal 67802-9) [facility] GLUCOSE (AUTOMATED)2020-08-21 23:46:00 Test Item Value Reference Range Interpretation Comments POCT GLU (test code = 0092519245) 258 mg/dL 70-110 H Lab Interpretation (test code = Abnormal 26747-5) [facility]landC-REACTIVE [id number] 18:50:00 Test Item Value Reference Range Interpretation Comments CRP (test code = 6933918112) 15.5 mg/dL <0.8 H Lab Interpretation (test code = Abnormal 26128-6) [facility]landPO[facility] GLU[facility]SE (AUTOMATED)2020-08-21 18:21:00 Test Item Value Reference Range Interpretation Comments POCT GLU (test code = 8718907901) 297 mg/dL 70-110 H Lab Interpretation (test code = Abnormal 58330-9) [facility] MainlandETHANOL2020-11-09 16:24:00 Test Item Value Reference Range Interpretation Comments ALCOHOL (test code = <10 mg/dL 6824653996) JAMES (test code = Toxic Greater than or JAMES) equal to 80 mg/dL. NOTE: Whole blood values are approximately 10% to 15% lower than serum and plasma. [facility] MainlandGAL/CLC ONLY - URINE DRUG (IMMUNOASSAY) - 4 ER [id number] 15:36:00 Test Item Value Reference Range Interpretation Comments AMPHET (test code = Negative Negative 0998095912) Cocaine Metabolite (test Negative Negative code = 3287925806) OPIATES (test code = Presumptive Positive Negative A 4628165735) THC (test code = Negative Negative 5864575853) JAMES (test code = JAMES) Urine Drug Cutoff Ranges Amphetamine: ? 1,000 ng/mLCocaine: ? 150 ng/mLOpiates: ? 300 ng/mLCannabinoids: ?50 ng/mL The results are to be used only for medical (i.e., treatment) purposes. Unconfirmed screening results must not be used for non-medical purposes (e.g., employment testing, legal testing). Lab Interpretation (test Abnormal code = 60525-9) [facility] ONLY - SYPHILIS [id number] 15:04:00 Test Item Value Reference Range Interpretation Comments Syphilis IgG/IgM (test Non-reactive Non-reactive code = 09170-2) JAMES (test code = JAMES) Non-reactive - No serologic evidence of T. pallidum infection. Cannot exclude incubating or early syphilis. Submit a second specimen in 2-4 weeks if syphilis is clinically suspected. Equivocal - Further testing to follow. Reactive - Further testing to follow. Lab Interpretation (test Normal code = 02066-2) [facility] MainlandUrinalysis2020-11-09 14:52:00 Test Item Value Reference Range Interpretation Comments APPEARANCE (test code = Clear Clear 7717661234) COLOR (test code = Yellow Yellow 1258447163) PH (test code = 4.8-8.0 4247221472) SP GRAVITY (test code = 1.003-1.030 6184059641) GLU U QUAL (test code = 500 mg/dL Normal A 7955315267) BLOOD (test code = Negative Negative 4991289688) KETONES (test code = 20 mg/dL Negative A 2221455716) PROTEIN (test code = Negative Negative 2887-8) UROBILIN (test code = Normal Normal 8397530638) BILIRUBIN (test code = Negative Negative 0323763956) NITRITE (test code = Negative Negative 2956927852) LEUK RYAN (test code = Negative Negative 6940326639) RBC/HPF (test code = <1 See_Comment [Autom ated message] 4363180675) The system [employer] App generated this result transmit ronan reference range : 0 - 3 HPF. The refe rence range was not u sed to interpret th is result as normal/abnormal . WBC/HPF (test code = See_Comment [Autom ated message] 5346811457) The system [employer] App generated this result transmit ronan reference range : 0 - 5 HPF. The refe rence range was not u sed to interpret th is result as normal/abnormal . BACTERIA (test code = Negative Negative 1198823280) MUCOUS (test code = Slight Negative LPF A 2715521306) Lab Interpretation (test Abnormal code = 80017-1) [facility] MainlandACTIVATED PARTIAL THRMPLAS [id number] 13:45:00 Test Item Value Reference Range Interpretation Comments APTT Patient (test code = See_Comment [ Automated message] 3173-2) The system [employer] App generated this result transmitted ref erence range: 26 - 36 Seconds. The re ference range was not u sed to interpret this result as normal/abnor mal. Lab Interpretation (test Normal code = 64612-5) [facility]landPOCT GLUCOSE (AUTOMATED)2020-08-21 13:45:00 Test Item Value Reference Range Interpretation Comments POCT GLU (test code = 5455818942) 246 mg/dL 70-110 H Lab Interpretation (test code = Abnormal 12084-0) [facility] MainlandHIV 1/2 AG-AB WITH [id number] 12:32:00 Test Item Value Reference Range Interpretation Comments HIV Negative Negative Semi-quantitative (test code = 92445-8) JAMES (test code = Non-reactive for HIV-1 JAMES) antigen and HIV-1/HIV-2 antibodies. ?No laboratory evidence of HIV infection. ?Repeat in 2-4 weeks if acute HIV infection is suspected. [facility]landCBC WITH [id number] 12:18:00 Test Item Value Reference Range Interpretation [...] RDW-SD (test code = 44.4 fL 38.5-51.6 35913-4) RDW-CV (test code = 14.5 % 12.1-15.4 788-0) PLT (test code = See_Comment H [Automated 777-3) message] The sy stem which generated this result transmitted reference range : 150 - 328 10*3/ ?L. The reference r torito was not used to interpret this result as normal/abnormal . MPV (test code = 8.5 fL 9.8-13 L 02522-9) NRBC/100 WBC (test See_Comment [Automat ed code = 1583735343) message] The system which generated this result transmitted reference range : 0.0 - 10.0 /100 WBCs. The refer ence range was not u sed to interpret th is result as normal/abnormal . NRBC x10^3 (test code <0.01 See_Comment [Auto mated = 6789929095) message] The s ystem which generated this result transmitted reference range : 10*3/?L. The reference range was not used to interpret this result as normal/abnormal . GRAN MAT (NEUT) % 90.4 % (test code = 770-8) IMM GRAN % (test code 1.30 % = 0211028740) LYMPH % (test code = 7.1 % 736-9) MONO % (test code = 0.5 % 5905-5) EOS % (test code = 0.1 % 713-8) BASO % (test code = 0.6 % 706-2) GRAN MAT x10^3(ANC) 7.74 10*3/uL 1.99-6.95 H (test code = 1378059955) IMM GRAN x10^3 (test 0.11 10*3/uL 0-0.06 H code = 0918753174) LYMPH x10^3 (test code 0.61 10*3/uL 1.09-3.23 L = 731-0) MONO x10^3 (test code 0.04 10*3/uL 0.36-1.02 L = 742-7) EOS x10^3 (test code = <0.03 0.06-0.53 L 711-2) BASO x10^3 (test code 0.05 10*3/uL 0.01-0.09 = 704-7) POLYCHROMASIA (test 2+ See_Comment [Automa ronan code = 43542-4) message] The system which generated this result transmitted reference range : 2+. The referen ce range was not u sed to interpret th is result as normal/abnormal . BANDS (test code = Increased A 7846696797) Lab Interpretation Abnormal (test code = 63554-8) [facility] 11:48:00 Test Item Value Reference Range Interpretation Comments Procalcitonin (test 0.36 ng/mL <0.07 H code = 3935230931) JAMES (test code = JAMES) INTERPRETATION OF [...] lung abscess/empyema. For further information please refer to:[email or web address] Lab Interpretation Abnormal (test code = 20193-4) [facility]landLALAATE [id number] 10:53:00 Test Item Value Reference Range Interpretation Comments LDH (test code = 8364249270) 351 U/L 300-600 Lab Interpretation (test code = Normal 08862-6) [facility]landSEDIMENTATION [id number] 10:07:00 Test Item Value Reference Range Interpretation Comments ESR (test code = See_Comment H [Automated message] 2837878687) The system [employer] generated this result transmitted ref erence range: 0 - 10 m m/HR. The reference r torito was not used to interpret this result as normal/abnor mal. Lab Interpretation (test Abnormal code = 30812-1) [facility]landPOLA GLUCOSE (AUTOMATED)2020-08-21 09:45:00 Test Item Value Reference Range Interpretation Comments POCT GLU (test code = 8253158816) 287 mg/dL 70-110 H Lab Interpretation (test code = Abnormal 04784-8) [facility]landGlycosylated Hemoglobin (A1C)2020-08-21 09:29:00 Test Item Value Reference Range Interpretation Comments HGB A1C (test code = 4548-4) 9.8 % 4-6 H Lab Interpretation (test code = Abnormal 69350-5) [facility]landCOVID-19 (ID NOW RAPID TESTING)2020-08-21 09:13:00 Test Item Value Reference Range Interpretation Comments SARS-CoV-2 Rapid ID NOW Not Detected Not Detected (test code = 32802-1) JAMES (test code = JAMES) ID NOW COVID-19 Assay is an isothermal nucleic acid amplification test intended for the qualitative detection of nucleic acid from SARS-CoV-2 viral RNA in nasopharyngeal (TRAVELING CLERK) specimens. It is used under Emergency Use [...] indicated. Lab Interpretation Normal (test code = 74824-7) [facility]landProthrombin Time / [id number] 08:59:00 Test Item Value Reference Range Interpretation Comments PROTIME PATIENT (test See_Comment H [Auto mated message] code = 5964-2) The system [employer] generated this result transmitted ref erence range: 10.1 - 1 2.6 Seconds. The reference range was not used to int erpret this result as normal/abnormal . INR (test code = 6301-6) Nor mal INR <1.1; Warfarin Therap eutic range 2.0 to 3. 0 or 2.5 to 3.5, dep ending upon the indica tions. Lab Interpretation (test Abnormal code = 80495-3) [facility]landaPTT2020-11-09 08:59:00 Test Item Value Reference Range Interpretation Comments APTT Patient (test code = See_Comment [ Automated message] 3173-2) The system [employer] generated this result transmitted ref erence range: 26 - 36 Seconds. The re ference range was not u sed to interpret this result as normal/abnor mal. Lab Interpretation (test Normal code = 01962-9) [facility]landBASI METABOLIC PANEL (NA, K, CL, CO2, GLUCOSE, BUN, CREATININE, CA)2020-08-21 08:52:00 Test Item Value Reference Range Interpretation Comments NA (test code = 136 mmol/L 135-145 1874330177) K (test code = 4.3 mmol/L 3.5-5 9593242401) CL (test code = 104 mmol/L 98-108 4113177201) CO2 TOTAL (test code = 24 mmol/L 23-31 4882678209) AGAP (test code = 2-16 2423906867) BUN (test code = 8 mg/dL 7-23 5197619538) GLUCOSE (test code = 308 mg/dL 70-110 H 3240459979) CREATININE (test code = 0.72 mg/dL 0.6-1.25 4382957209) CALCIUM (test code = 7.8 mg/dL 8.6-10.6 L 4167897869) eGFR Calculation mL/min/1.73m2 (Non-) (test code = 7907481796) eGFR Calculation mL/min/1.73m2 () (test code = 0996085233) JAMES (test code = JAMES) Association of [...] tests). Lab Interpretation Abnormal (test code = 13873-8) [facility]landHEPATIC FUNCTION PANEL (23702) (ALB,T.PRO,BILI T,BU/BC,ALT,AST,ALK PHOS)2020-08-21 08:52:00 Test Item Value Reference Range Interpretation Comments TOTAL BILI (test code = 9662831738) 0.8 mg/dL 0.1-1.1 BILI UNCON (test code = 6660419835) 0.3 mg/dL 0.1-1.1 BILI CONJ (test code = 1729614895) 0.0 mg/dL 0-0.3 T PROTEIN (test code = 2494120002) 5.7 g/dL 6.3-8.2 L ALBUMIN (test code = 6087305999) 2.7 g/dL 3.5-5 L ALK PHOS (test code = 8305268995) 245 U/L 34-122 H ALTv (test code = 1742-6) 37 U/L 5-50 AST(SGOT) (test code = 5831948326) 43 U/L 13-40 H Lab Interpretation (test code = Abnormal 12416-2) [facility]
[2022-06-14 04:40] LABS: Absolute Lymphocytes (CBC) 1.7 K/uL (0.7-4.9); MCV 85.1 fL (80-100); MPV 6.1 fL (7.6-11.3); RBC Red Blood Cell Count 4.47 M/uL (4.33-5.43)
[2022-06-14] MEDS ORDERED: DIPHENHYDRAMINE 50 MG/ML VIAL ONE (04:53)
[2022-06-14] MEDS ORDERED: NA CHLORIDE 0.9% 500 ML ONE (04:54)
[2022-06-14] MEDS ORDERED: HYDROMORPHONE HCL 1 MG/ML INJ ONE (04:54)
[2022-06-14] MEDS ORDERED: ONDANSETRON 4 MG/2 ML VIAL ONE (04:54)
[2022-06-14 05:05] LABS: Albumin 3.1 g/dL (3.4-5.0); Bilirubin Total 0.3 mg/dL (0.2-1.0)
[2022-06-14 05:06] LABS: Potassium 3.9 mmol/L (3.5-5.1)
--- NOTE | 2022-06-14 05:09 | EDPHYS ---
Physician Documentation [facility] Name: Kiel Ngo Age: 71 yrs Sex: Male : 1950 Arrival Date: 06/14/2022 Time: 01:59 Bed 8 Private MD: LAURIE Physician Stu Banerjee HPI: 06/14 03:45 This 71 yrs old Male presents to ER via EMS with complaints of Back Pain. chetan 03:45 The patient presents with pain that is acute, that is chronic, with no known mechanism chetan of injury, and decreased range of motion. The symptoms are located in the low back, lumbar area, left low back, left mid back, right mid back and right low back. Onset: The symptoms/episode began/occurred 108 day(s) ago. The pain does not radiate. Associated signs and symptoms: The patient has no apparent associated signs or symptoms. The problem was sustained from a chronic condition, degenerative joint disease, the patient has known disc disease, from unknown cause. Modifying factors: The patient symptoms are alleviated by nothing, remaining still. Severity of symptoms: At their worst the symptoms were moderate, in the emergency department the symptoms are unchanged. The patient has not experienced similar symptoms in the past. Historical: - Allergies: 02:30 Demerol; kd3 02:30 metformin; kd3 02:30 Morphine; kd3 - Home Meds: 02:30 BP med [Active]; dilaaudid [Active]; Klonopin 2 mg Oral TbDi 2 tabs 4 times a day kd3 [Active]; MUSCLE RELAXER four times a day [Active]; - PMHx: 02:30 Atrial fibrillation; chronic back pain; neuropathy; Chronic right leg pain; kd3 - PSHx: 02:30 back sx; R. Ankle SX; PANCREAS SX; kd3 - Immunization history:: Adult Immunizations up to date. - Social history:: Smoking status: unknown. - Family history:: not pertinent. ROS: 03:45 Constitutional: Negative for fever, chills, and weight loss, Eyes: Negative for injury, chetan pain, redness, and discharge, ENT: Negative for injury, pain, and discharge, Neck: Negative for injury, pain, and swelling, Cardiovascular: Negative for chest pain, palpitations, and edema, Respiratory: Negative for shortness of breath, cough, wheezing, and pleuritic chest pain, Abdomen/GI: Negative for abdominal pain, nausea, vomiting, diarrhea, and constipation, : Negative for injury, bleeding, discharge, and swelling, MS/Extremity: Negative for injury and deformity, Skin: Negative for injury, rash, and discoloration, Neuro: Negative for headache, weakness, numbness, tingling, and seizure, Psych: Negative for depression, anxiety, suicide ideation, homicidal ideation, and hallucinations, Allergy/Immunology: Negative for hives, rash, and allergies, Endocrine: Negative for neck swelling, polydipsia, polyuria, polyphagia, and marked weight changes, Hematologic/Lymphatic: Negative for swollen nodes, abnormal bleeding, and unusual bruising. 03:45 Back: Positive for decreased range of motion, pain at rest, pain with movement. 03:45 : Positive for difficulty urinating. Exam: 03:45 Constitutional: This is a well developed, well nourished patient who is awake, alert, chetan and in no acute distress. Head/Face: Normocephalic, atraumatic. Eyes: Pupils equal round and reactive to light, extra-ocular motions intact. Lids and lashes normal. Conjunctiva and sclera are non-icteric and not injected. Cornea within normal limits. Periorbital areas with no swelling, redness, or edema. ENT: Nares patent. No nasal discharge, no septal abnormalities noted. Tympanic membranes are normal and external auditory canals are clear. Oropharynx with no redness, swelling, or masses, exudates, or evidence of obstruction, uvula midline. Mucous membranes moist. Neck: Trachea midline, no thyromegaly or masses palpated, and no cervical lymphadenopathy. Supple, full range of motion without nuchal rigidity, or vertebral point tenderness. No Meningismus. Chest/axilla: Normal chest wall appearance and motion. Nontender with no deformity. No lesions are appreciated. Cardiovascular: Regular rate and rhythm with a normal S1 and S2. No gallops, murmurs, or rubs. Normal PMI, no JVD. No pulse deficits. Respiratory: Lungs have equal breath sounds bilaterally, clear to auscultation and percussion. No rales, rhonchi or wheezes noted. No increased work of breathing, no retractions or nasal flaring. Abdomen/GI: Soft, non-tender, with normal bowel sounds. No distension or tympany. No guarding or rebound. No evidence of tenderness throughout. 03:45 Back: pain, that is moderate, of the lumbar area, left low back and right low back. 03:45 : CVA tenderness, is absent, Male external genitalia: normal, Bladder: is normal, Rectal exam: Vital Signs: 02:08 BP 122 / 69; Pulse 110; Resp 18 S; Temp 97.9; Pulse Ox 99% on R/A; Weight 86.18 kg; ha1 03:39 BP 132 / 74; Pulse 108; Resp 19; Pulse Ox 100% on R/A; kd3 04:58 Pulse 96; Resp 19; Pulse Ox 100% on R/A; kd3 05:30 BP 139 / 77; Pulse 108; Resp 19 S; Pulse Ox 100% on R/A; Pain 3/10; ha1 MDM: 02:11 Patient medically screened. [facility] 03:51 Differential diagnosis: Cholelithiasis chronic back pain, Neoplasm Obesity Perforated chetan Ulcer ruptured disc, sprain, TB Meningitis Ureterolithiasis. Data reviewed: vital signs, nurses notes, lab test result(s), EKG, radiologic studies, CT scan, plain films. 06/14 03:44 Order name: CBC with Diff; Complete Time: 05:06 [facility] 06/14 03:44 Order name: Comprehensive Metabolic Panel; Complete Time: 05:16 [facility] 06/14 03:44 Order name: Bladder Scanner; Complete Time: 04:31 [facility] Administered Medications: 04:56 Drug: NS 0.9% 500 ml Route: IV; Rate: bolus; Site: left wrist; kd3 05:47 Follow up: Response: No adverse reaction; IV Status: Completed infusion; IV Intake: ha1 500ml 04:56 Drug: Dilaudid (HYDROmorphone) 1 mg Route: IVP; Site: right wrist; kd3 05:20 Follow up: Response: No adverse reaction; Pain is decreased; RASS: Alert and Calm (0) ha1 04:56 Drug: Zofran (Ondansetron) 4 mg Route: IVP; Site: right wrist; kd3 05:20 Follow up: Response: No adverse reaction ha1 04:56 Drug: Benadryl (diphenhydrAMINE) 50 mg Route: IVP; Site: right wrist; kd3 05:20 Follow up: Response: No adverse reaction ha1 Disposition Summary: 06/14/22 05:08 Discharge Ordered Location: Home [facility] Problem: new chetan Symptoms: have improved chetan Condition: Stable chetan Diagnosis - Chronic pain, not elsewhere classified chetan - Low back pain chetan Followup: chetan - With: Private Physician - When: 2 - 3 days - Reason: Recheck today's complaints, Continuance of care, Re-evaluation by your physician Followup: chetan - With: Madhu Francois DO - When: 2 - 3 days - Reason: Recheck today's complaints, Continuance of care, Re-evaluation by your physician Discharge Instructions: - Discharge Summary Sheet chetan - Acute Back Pain, Adult chetan - Chronic Back Pain chetan - Musculoskeletal Pain chetan - Back Injury Prevention, Zsfe-by-Lyjk chetan - Chronic Back Pain, [id number]-ms-Qlts chetan Forms: - Medication Reconciliation Form chetan - Thank You Letter chetan - Antibiotic Education chetan - Prescription Opioid Use [facility] Prescriptions: - Diclofenac Sodium 75 mg Oral tablet,delayed release (DR/EC) - take 1 tablet by ORAL route 2 times per day; 20 tablet; Refills: 0, Product [facility] Selection Permitted - Cyclobenzaprine 5 mg Oral Tablet - take 1 tablet by ORAL route 3 times per day As needed; 15 tablet; Refills: 0, [facility] Product Selection Permitted Signatures: Dispatcher [employer] Stu Vale MD MD cha Doucette, Kyli RN RN kd3 Chyna Salinas RN ha1
--- NOTE | 2022-06-14 05:09 | ER ---
Nurse's Notes [facility] Name: Kiel Ngo Age: 71 yrs Sex: Male : 1950 Arrival Date: 06/14/2022 Time: 01:59 Bed 8 Private MD: Diagnosis: Chronic pain, not elsewhere classified;Low back pain Presentation: 06/14 02:29 Chief complaint: EMS states: EMS toned out for chronic low back pain. Coronavirus kd3 screen: Vaccine status:. Ebola Screen: No symptoms or risks identified at this time. Initial Sepsis Screen: Does the patient meet any 2 criteria? No. Patient's initial sepsis screen is negative. Does the patient have a suspected source of infection? No. Patient's initial sepsis screen is negative. Risk Assessment: Do you want to hurt yourself or someone else? Patient reports no desire to harm self or others. Onset of symptoms was June 14, 2022. 02:29 Method Of Arrival: EMS: [facility] kd3 02:29 Acuity: JOZEF 3 kd3 Triage Assessment: 02:30 General: Appears uncomfortable, Behavior is cooperative. Musculoskeletal: No deficits kd3 noted. Historical: - Allergies: 02:30 Demerol; kd3 02:30 metformin; kd3 02:30 Morphine; kd3 - Home Meds: 02:30 BP med [Active]; dilaaudid [Active]; Klonopin 2 mg Oral TbDi 2 tabs 4 times a day kd3 [Active]; MUSCLE RELAXER four times a day [Active]; - PMHx: 02:30 Atrial fibrillation; chronic back pain; neuropathy; Chronic right leg pain; kd3 - PSHx: 02:30 back sx; R. Ankle SX; PANCREAS SX; kd3 - Immunization history:: Adult Immunizations up to date. - Social history:: Smoking status: unknown. - Family history:: not pertinent. Screenin:31 Abuse screen: Denies threats or abuse. Denies injuries from another. Nutritional kd3 screening: No deficits noted. Tuberculosis screening: No symptoms or risk factors identified. 04:58 Fall Risk Secondary diagnosis (15 points) impaired mobility, IV access (20 points). kd3 Assessment: 02:13 General: Appears in no apparent distress. Behavior is calm, cooperative. Pain: ha1 Complains of pain in back Pain does not radiate. Pain at worst was 10 out of 10 on a pain scale. Quality of pain is described as pressure, shooting, throbbing, Pain began chronic back pain Alleviated by medications. Neuro: Level of Consciousness is awake, alert, obeys commands, Oriented to person, place, time, situation. Respiratory: Airway is patent Trachea midline Respiratory effort is even, unlabored, Respiratory pattern is regular, symmetrical. 03:00 Reassessment: No changes from previously documented assessment. Patient and/or family kd3 updated on plan of care and expected duration. Pain level reassessed. Patient is alert, oriented x 3, equal unlabored respirations, skin warm/dry/pink. 04:36 General: bladder scan 78 ML. kd3 04:57 Reassessment: No changes from previously documented assessment. Patient and/or family kd3 updated on plan of care and expected duration. Pain level reassessed. Patient is alert, oriented x 3, equal unlabored respirations, skin warm/dry/pink. 05:30 Reassessment: Patient and/or family updated on plan of care and expected duration. Pain ha1 level reassessed. Patient is alert, oriented x 3, equal unlabored respirations, skin warm/dry/pink. watching T.V. Patient states symptoms have improved. 06:25 Reassessment: Patient and/or family updated on plan of care and expected duration. Pain ha1 level reassessed. Patient is alert, oriented x 3, equal unlabored respirations, skin warm/dry/pink. Vital Signs: 02:08 BP 122 / 69; Pulse 110; Resp 18 S; Temp 97.9; Pulse Ox 99% on R/A; Weight 86.18 kg; ha1 03:39 BP 132 / 74; Pulse 108; Resp 19; Pulse Ox 100% on R/A; kd3 04:58 Pulse 96; Resp 19; Pulse Ox 100% on R/A; kd3 05:30 BP 139 / 77; Pulse 108; Resp 19 S; Pulse Ox 100% on R/A; Pain 3/10; ha1 ED Course: 01:59 Patient arrived in ED. wm 02:11 Stu Banerjee MD is Attending Physician. chetan 02:24 Karen Ambrocio RN is Primary Nurse. kd3 02:30 Triage completed. kd3 02:30 Arm band placed on right wrist. kd3 04:35 Inserted saline lock: 24 gauge in right wrist, using aseptic technique. as6 04:36 CBC with Diff Sent. kd3 04:36 Comprehensive Metabolic Panel Sent. kd3 04:58 Patient has correct armband on for positive identification. kd3 05:07 Madhu Francois DO is Referral Physician. [facility] 05:40 No provider procedures requiring assistance completed. IV discontinued, intact, ha1 bleeding controlled, No redness/swelling at site. Pressure dressing applied. Administered Medications: 04:56 Drug: NS 0.9% 500 ml Route: IV; Rate: bolus; Site: left wrist; kd3 05:47 Follow up: Response: No adverse reaction; IV Status: Completed infusion; IV Intake: ha1 500ml 04:56 Drug: Dilaudid (HYDROmorphone) 1 mg Route: IVP; Site: right wrist; kd3 05:20 Follow up: Response: No adverse reaction; Pain is decreased; RASS: Alert and Calm (0) ha1 04:56 Drug: Zofran (Ondansetron) 4 mg Route: IVP; Site: right wrist; kd3 05:20 Follow up: Response: No adverse reaction ha1 04:56 Drug: Benadryl (diphenhydrAMINE) 50 mg Route: IVP; Site: right wrist; kd3 05:20 Follow up: Response: No adverse reaction ha1 Medication: 05:42 VIS not applicable for this client. ha1 Intake: 05:47 IV: 500ml; Total: 500ml. ha1 Outcome: 05:08 Discharge ordered by . [facility] 06:24 Discharged to home via ambulance. ha1 06:24 Condition: stable 06:24 Discharge instructions given to patient, Instructed on discharge instructions, follow up and referral plans. medication usage, Demonstrated understanding of instructions, follow-up care, medications, Prescriptions given X 2. 06:26 Patient left the ED. ha1 Signatures: Stu Banerjee MD MD cha Marsh, Wendy wm Slawson, Ashby, RN RN as6 Karen Ambrocio RN RN kd3 Chyna Salinas RN RN ha1 Corrections: (The following items were deleted from the chart) 05:56 05:42 Reassessment: Patient and/or family updated on plan of care and expected ha1 duration. Pain level reassessed. Patient is alert, oriented x 3, equal unlabored respirations, skin warm/dry/pink. watching T.V. ha1
[2022-06-14 06:40] VITALS: TEMP 97.9
[2022-06-14 06:43] VITALS: O2SAT 100
[2022-06-14 07:05] VITALS: BP 139/77
== END 2022-06-14 06:26 | disposition home or self-care (01) ==
LOC: ER 01:57
DX: M54.50 Low back pain, unspecified (principal); G89.29 Other chronic pain; I48.91 Unspecified atrial fibrillation; Z88.5 Allergy status to narcotic agent
CPT/HCPCS: 96361; 85025; 36415; 80053; 96375; 96374; 99284; J1200; J1170; J7040; J2405

== ENCOUNTER 2022-06-17 15:19 | Emergency (ER) | payer OTHER ==
--- OUTSIDE RECORDS SUMMARY | 2022-06-17 15:28 | XMS REPORT | Continuity of Care Document ---
:1950 Author Organization [facility] t Address [address] [place] [address] Care Team Providers Name Role Phone JESSE [...] PACO LACEY Attending Clinician Unavailable Doctor Unassigned, Kaplan Attending Clinician Unavailable Wilder VILLAREAL, Angi K.H. Attending Clinician Jl Mccabe MD Attending Clinician Kelly Washington MD Attending Clinician [phone] Mukul Gaines MD Attending Clinician MUKUL GALLARDO Admitting Clinician Unavailable Rene Harrison MD Admitting Clinician Nicci VILLAREAL Mukul Anand Admitting Clinician Payers Payer Name Policy Type Policy Number Effective Date Expiration Date Tony doe MEDICARE PART A [id number] 2007 \\T\\ B 00:00:00 [employer] INDEMNITY [id number] 2016 00:00:00 MEDICARE PART A [id number] 2014 \\T\\ B - MEDICARE 00:00:00 INDEMNITY/TRADITIO [id number] NAL CHOICE - [employer] 00:00:00 Problems Condition [...] ents Source Name Type Date Date Clinician [place] Propensi Active Rash 2019- Univers ty to 1-10 ity of adverse 00:00: [place] reaction 00 Medical [facility] PEACH DRUG Active Rash 2019- Univers INGREDI [...] of adverse 00:00: [place] reaction 00 Medical [facility] Glimepir Propensi Active Hives 2011-0 Univer s efren ty to 3-16 ity of adverse 00:00: [place] reaction 00 Medical [facility] Metformi Propensi Active Itching Unive rs n [...] Quantity Comments Source Exposure to Not sure [place] of SARS-CoV-2 [place] [facility] (event) Branch History of Chews Tobacco University of tobacco use [place] [facility] History SDOH 2020-11-17 2020-11-17 5 University o f Financial 00:00:00 00:00:00 [place] [facility] History SDOH Food 2020-11-17 2020-11-17 1 Univers ity of Worry 00:00:00 00:00:00 [place] [facility] History SDKY Food 2020-11-17 2020-11-17 1 Univers ity of Scarcity 00:00:00 00:00:00 [place] [facility] History SDOH 2020-11-17 2020-11-17 1 University o f Transport Med 00:00:00 00:00:00 [place] [facility] al [facility] History SDOH 2020-11-17 2020-11-17 1 University o f Transport Non-Med 00:00:00 00:00:00 [facility] edical Branch Education 2020-11-16 2020-11-16 21 [place] of 00:00:00 00:00:00 [facility] Alcohol intake 2020-11-16 2020-11-16 Ex-drinker [facility] 00:00:00 00:00:00 (finding) [facility] Tobacco use and 2020-08-21 2020-08-21 Former user Universi ty of exposure 00:00:00 00:00:00 [facility] Tobacco Comment 2020-08-21 2020-08-21 quit 10 years Univer sity of 00:00:00 00:00:00 ago, started in [place] Med ical 2nd year of Branch college (~40 years) Alcohol Comment 2020-08-21 2020-08-21 Used to have 2-3 Uni versity of 00:00:00 00:00:00 six-packs of [place] Medica l beer daily x 20 Branch years, quit 2005 History [facility] 2020-08-21 2020-08-21 99 University o f Alcohol Frequency 00:00:00 00:00:00 [place] M edical Branch History [facility] 2020-08-21 2020-08-21 99 University o f Alcohol Std 00:00:00 00:00:00 [place] Medical Drinks Branch History [facility] 2020-08-21 2020-08-21 99 [place] o f Alcohol Binge 00:00:00 00:00:00 [facility] al Branch Sex [birth year] Universit y of 00:00:00 00:00:00 [facility] Smoking Status Start Date Stop Date Source Never smoker [facility] Medications Ordered Filled Start Stop [...] by ity of tablet 22:47: mouth at [place] 18 bedtime. Medical Branch HYDROmorpho Yes 4mg [...] by ity of tablet 22:47: mouth at [place] 18 bedtime. Medical Branch HYDROmorpho 2020-0 Yes [...] 0845, Until Discontinu ed, Routine amLODIPine Yes [id number] 10mg Take 1 Univers 10 mg 3-07 tablet by ity of tablet 00:00: mouth [place] 00 daily. Medical Branch clotrimazol 0 Yes [id number] Apply to Univers e 1 % 3-07 face/ears, ity of topical 00:00: armpits, [place] cream 00 pannus and Medical back/any Branch other rash twice a day fluocinonid 2020-0 Yes [id number] Apply to Univers e 0.05 % 3-07 scalp ity of solution 00:00: twice a day Medical Branch triamcinolo Yes [id number] Apply to Univers ne 3-07 back, ity of acetonide 00:00: armpits [place] 0.1 % cream 00 and other Med ical affected Branch areas twice daily, please mix with clotrimazo le hydrOXYzine Yes [id number] 10mg Take 1 Univers 10 mg 3-07 tablet by ity of tablet 00:00: mouth 2 (two) Medical times Branch daily. amLODIPine 0 Yes [id number] 10mg Take 1 Univers 10 mg 3-07 tablet by ity of tablet 00:00: mouth [place] 00 daily. Medical Branch clotrimazol Yes [id number] Apply to Univers e 1 % 3-07 face/ears, ity of topical 00:00: armpits, [place] cream 00 pannus and Medical back/any Branch other rash twice a day fluocinonid 0 Yes [id number] Apply to Univers e 0.05 % 3-07 scalp ity of solution 00:00: twice a day Medical Branch triamcinolo Yes [id number] Apply to Univers ne 3-07 back, ity of acetonide 00:00: armpits [place] 0.1 % cream 00 and other Med ical affected Branch areas twice daily, please mix with clotrimazo le hydrOXYzine Yes [id number] 10mg Take 1 Univers 10 mg 3-07 tablet by ity of tablet 00:00: mouth 2 (two) Medical times Branch daily. amLODIPine 2020-0 Yes [id number] 10mg Take 1 Univers 10 mg 3-07 tablet by ity of tablet 00:00: mouth [place] 00 daily. Medical Branch clotrimazol 2020-0 Yes [id number] Apply to Univers e 1 % 3-07 face/ears, ity of topical 00:00: armpits, [place] cream 00 pannus and Medical back/any Branch other rash twice a day fluocinonid 2020-0 Yes [id number] Apply to Univers e 0.05 % 3-07 scalp ity of solution 00:00: twice a day Medical Branch triamcinolo 2021-0 Yes [id number] Apply to Univers ne 3-07 back, ity of acetonide 00:00: armpits [place] 0.1 % cream 00 and other Med ical affected Branch areas twice daily, please mix with clotrimazo le hydrOXYzine Yes [id number] 10mg Take 1 Univers 10 mg 3-07 tablet by ity of tablet 00:00: mouth 2 [place] 00 (two) Medical times Branch daily. amLODIPine Yes [id number] 10mg Take 1 Univers 10 mg 3-07 tablet by ity of tablet 00:00: mouth [place] 00 daily. Medical Branch clotrimazol Yes [id number] Apply to Univers e 1 % 3-07 face/ears, ity of topical 00:00: armpits, [place] cream 00 pannus and Medical back/any Branch other rash twice a day fluocinonid Yes [id number] Apply to Univers e 0.05 % 3-07 scalp ity of solution 00:00: twice a [place] 00 day Medical Branch triamcinolo Yes [id number] Apply to Univers ne 3-07 back, ity of acetonide 00:00: armpits [place] 0.1 % cream 00 and other Med ical affected Branch areas twice daily, please mix with clotrimazo le hydrOXYzine Yes [id number] 10mg Take 1 Univers 10 mg 3-07 tablet by ity of tablet 00:00: mouth 2 [place] 00 (two) Medical times Branch daily. cephALEXin 2020-2020- No [id number] 500mg Take 1 Univers 500 mg 3-04 14-11 capsule by ity of capsule 00:00: 05:59 mouth [place] 00 :00 every 6 Medical (six) Branch hours for 3 days. cephALEXin 2020-2020- No [id number] 500mg Take 1 Univers 500 mg 3-04 14-11 capsule by ity of capsule 00:00: 05:59 mouth [place] 00 :00 every 6 Medical (six) Branch hours for 3 days. hydrOXYzine 2020-2020- No [id number] 10mg Take 1 Univers 10 mg 3-07 [...] days NaCl 0.9% No 500mL at 999 [facility] ers (NS) bolus 12-15 mL/hr, 500 it y of infusion 16:00: 15:26 mL, IV [place] 500 mL 00 :00 Piggyback, [facility] ONCE, 1 Branch dose, Fri12/15/20 at 1000, STAT HYDROmorpho Yes 4mg 4 mg, [facility] Oral, BID, ity of (DILAUDID) 15:30: First dose [place] tablet 4 mg 00 (after Medica l last Branch modificati on) on Fri12/15/20 at 0930, Until Discontinu ed, Routine amLODIPine 2020- No [id number] 10mg Take 1 Univers 10 mg 12-15 tablet by ity of tablet 00:00: 00:00 mouth [place] 00 :00 daily. Medical Branch HYDROmorpho No 1mg 1 mg, [facility] ers ne 12-14 Oral, ity of (DILAUDID) 17:35: 15:18 Q6HPRN, [place] tablet 1 mg 30 :06 Starting Medi [facility] 12/14/20 Branch at 1135, Until Fri12/15/20 at 0918, Routine, Pain (scale 7-10) hydrOXYzine Yes 10mg 10 mg, [facility] ers (ATARAX) 12-14 Oral, BID, ity o f tablet 10 17:30: First dose [place] mg 00 on [facility] 12/14/20 at Branch 1130, Until Discontinu ed, Routine lisinopriL Yes 5mg 5 mg, Univer s (PRINIVIL,Z 12-14 Oral, ity of ESTRIL) 17:30: DAILY, [place] tablet 5 mg 00 First dose Me dical on [facility] 12/14/20 at 1130, Until Discontinu ed, Routine triamcinolo 2020- No [id number] Apply to [facility] 12-14 back, ity of acetonide 00:00: 00:00 armpits [place] 0.1 % cream 00 :00 and other Med ical affected Branch areas twice daily, please mix with clotrimazo le clotrimazol 2020- No [id number] Apply to Univers e 1 % 12-14 face/ears, ity of topical 00:00: 00:00 armpits, [place] cream 00 :00 pannus and Medical back/any Branch other rash twice a day fluocinonid 2020- No [id number] Apply to Univers e 0.05 % 12-14 scalp ity of solution 00:00: 00:00 twice a [place] 00 :00 day Medical Branch hydrOXYzine 2020- No [id number] 10mg Take 1 Univers 10 mg 12-14 [...] IV Push, ity of (PF)) 10:07: Q6HPRN, [place] injection 4 28 Starting Medi jose c mg Fri12/13/20 Branch at 0407, Until Discontinu ed, Routine, Nausea and Vomiting (N/V) ondansetron 2020- No 4mg 4 mg, Slow Univers (ZOFRAN 12-13- IV Push, ity of (PF)) 04:55: 05:44 ONCE, 1 [place] injection 4 00 :00 dose, [facility] ical mg 12/12/20 at Branch 2300, Routine traMADoL 2020- No 50mg 50 mg, Univer s (ULTRAM) 12-1303 Oral, ity of tablet 50 03:45: 03:34 ONCE, 1 [place] mg 00 :00 dose, [facility] 12/12/20 at Branch 2145, Routine insulin Yes 15U 15 Units, Unive rs glargine 12-12 Subcutaneo ity o f (LANTUS 15:00: us, DAILY, [place] U-100) 00 First dose Medical injection on [facility] 15 Units 12/12/20 at 0900, Until Discontinu ed hydrOXYzine 2020- No 10mg 10 mg, Uni vers (ATARAX) 12-12 0302 Oral, ity of tablet 10 08:15: 07:33 ONCE, 1 [place] mg 00 :00 dose, [facility] 12/12/20 at Branch 0215, Routine mirtazapine Yes 7.5mg 7.5 mg, Un toi (REMERON) 3 Oral, QHS, ity of tablet 7.5 03:00: First dose [place] mg 00 on [facility] 12/11/20 at Branch 2100, Until Discontinu [...] Oral, ity of (TYLENOL 23:23: 13:49 Q6HPRN, [place] #3) 300-30 43 :08 Starting Medic al [...] ity of 1,000 mg in 19:00: [facility] [place] NaCl 0.9% 00 :26 Q8H ABX, Medica l (NS) 50 mL First dose [facility] MINI-BAG on Fri12/11/20 at 1300, Until Discontinu [...] ed, Routine insulin Yes 5U 5 Units, [facility] s lispro 12-11 Subcutaneo ity of (human) 18:00: , TID [place] (HumaLOG 00 MEALS, Medical U-100) First dose Branch injection 5 on Fri Units 12/11/20 at 1200, Until Discontinu ed Polyethylen Yes 17g [address] g, [facility] rs e Glycol 12-11 Oral, ity of 3350 17:47: B63PCCE, [place] (MIRALAX) 05 Starting Medica l powder 17 g 12/11/20 Br anch at 1147, Until Discontinu ed, Routine, Constipati on acetaminoph Yes 650mg 650 mg, Un toi en 12-11 Oral, ity of (TYLENOL) 16:51: Q6HPRN, [place] tablet 650 28 Starting Medic al mg [...]
Duration of therapy: 72 hours sennosides- Yes [id number] 1{tbl} Take 1 [facility] docusate 2- tablet by ity of sodium 00:00: mouth 2 [place] 8.6-50 mg 00 (two) Medical per tablet times Branch daily. hydrocortis Yes [id number] Apply to [facility] one 2.5 % 11-21 affected ity of cream 00:00: area(s) 2 [place] 00 (two) Medical times Branch daily. blood sugar Yes [id number] Use to Univers diagnostic 11-21 check ity of (FREESTYLE 00:00: blood [place] LITE 00 glucose Medical STRIPS) 4-5 times Branch strip daily. Polyethylen Yes [id number] 17g Take 1 Univers e Glycol 11-21 Packet by ity of 3350 17 00:00: mouth [place] gram powder 00 every 24 Medi jose c (twenty-fo Branch ur) hours as needed for Constipati on. sennosides- 2020- Yes [id number] 1{tbl} Take 1 Univers docusate 2-09 tablet by ity of sodium 00:00: mouth 2 [place] 8.6-50 mg 00 (two) Medical per tablet times Branch daily. hydrocortis 2020- Yes [id number] Apply to Univers one 2.5 % 2-09 affected ity of cream 00:00: area(s) 2 [place] 00 (two) Medical times Branch daily. blood sugar 2020- Yes [id number] Use to [facility] diagnostic 11-21 check ity of (FREESTYLE 00:00: blood [place] LITE 00 glucose Medical STRIPS) 4-5 times Branch strip daily. Polyethylen 2020- Yes [id number] 17g Take 1 Univers e Glycol 2-09 Packet by ity of 3350 17 00:00: mouth [place] gram powder 00 every 24 Medi jose c (twenty-fo Branch ur) hours as needed for Constipati on. sennosides- Yes [id number] 1{tbl} Take 1 Univers docusate 2-09 tablet by ity of sodium 00:00: mouth 2 [place] 8.6-50 mg 00 (two) Medical per tablet times Branch daily. hydrocortis 2020- Yes [id number] Apply to Univers one 2.5 % 2-09 affected ity of cream 00:00: area(s) 2 [place] 00 (two) Medical times Branch daily. blood sugar 2020- Yes [id number] Use to [facility] diagnostic 11-21 check ity of (FREESTYLE 00:00: blood [place] LITE 00 glucose Medical STRIPS) 4-5 times Branch strip daily. Polyethylen 2020-0 Yes [id number] 17g Take 1 Univers e Glycol 2-09 Packet by ity of 3350 17 00:00: mouth [place] gram powder 00 every 24 Medi jose c (twenty-fo Branch ur) hours as needed for Constipati on. sennosides- 2020- Yes [id number] 1{tbl} Take 1 Univers docusate 2-09 tablet by ity of sodium 00:00: mouth 2 [place] 8.6-50 mg 00 (two) Medical per tablet times Branch daily. hydrocortis Yes [id number] Apply to [facility] one 2.5 % 11-21 affected ity of cream 00:00: area(s) 2 [place] 00 (two) Medical times Branch daily. blood sugar Yes [id number] Use to [facility] diagnostic 11-21 check ity of (FREESTYLE 00:00: blood [place] LITE 00 glucose Medical STRIPS) 4-5 times Branch strip daily. Polyethylen Yes [id number] 17g Take 1 Univers e Glycol 11-21 Packet by ity of 3350 17 00:00: mouth [place] gram powder 00 every 24 Medi jose c (twenty-fo Branch ur) hours as needed for Constipati on. Insulin 2020- No [id number] 15U inject 15 Univers Glargine 11-21 Units ity of (LANTUS 00:00: 05:59 under the [place] SOLOSTAR 00 :00 skin every Medic al U-100 morning Branch INSULIN) for 30 100 unit/mL days. (3 mL) injection venlafaxine 2020- No [id number] 150mg Take 1 Univers XR 150 mg 11-21 capsule by ity of 24 hr 00:00: 05:59 mouth 3 [place] capsule 00 :00 (three) Medical times Branch daily for 30 days. Insulin 2020- No [id number] 15U inject 15 Univers Glargine 11-21 Units ity of (LANTUS 00:00: 05:59 under the [facility] SOLOSTAR 00 :00 skin every Medic al U-100 morning Branch INSULIN) for 30 100 unit/mL days. (3 mL) injection venlafaxine 2020- No [id number] 150mg Take 1 Univers XR 150 mg 11-21 capsule by ity of 24 hr 00:00: 05:59 mouth 3 [place] capsule 00 :00 (three) Medical times Branch daily for 30 days. triamcinolo 2020- No [id number] Apply to [facility] ne 11-21-04 area(s) 2 ity of acetonide 00:00: 00:00 (two) [place] 0.1 % cream 00 :00 times Medical daily. Branch cephALEXin 2020- No [id number] 1000mg Take 2 Univers 500 mg 11-21 capsules ity of capsule 00:00: 00:00 by mouth 3 [place] 00 :00 (three) Medical times Branch daily. doxycycline 2020- No [id number] 100mg Take 1 Univers hyclate 100 11-21 capsule by i ty of mg capsule 00:00: 00:00 mouth [place] 00 :00 every 12 Medical (twelve) Branch hours. lactobacill 2020- No [id number] 1{tbl} Take 1 Univers us 11-21 tablet by ity of acidophilus 00:00: 00:00 mouth 2 [place] 25 million 00 :00 (two) Medical cell -100 times Branch mg captab daily. bisacodyL 2020- No [id number] 10mg Insert 1 Univers 10 mg 11-21 Suppositor ity of suppository 00:00: 00:00 y into [place] 00 :00 rectum at Medical bedtime as Branch needed for Constipati on. ALPRAZolam 2020- No [id number] .25mg Take 1 Univers (XANAX) 11-21 tablet by ity of 0.25 mg 00:00: 00:00 mouth 2 [place] tablet 00 :00 (two) Medical times Branch daily. hydrOXYzine 2020- No [id number] 20mg Take 2 Univers 10 mg 11-21 [...] 3 ity of 6 mg 01:13: (three) [place] capsule 36 times Medical daily. Branch Insulin 2019-10 Yes 15U inject 15 Unive rs Glargine 1-12 Units ity of (LANTUS 01:13: under the [place] SOLOSTAR) 36 skin. Medical 100 unit/mL Branch (3 mL) InPn INSULIN 2019-10 Yes 5U inject 5 Univer s ASPART 1-12 Units ity of (NOVOLOG 01:13: under the [facility] FLEXPEN SC) 36 skin. Medical [...] Units ity of (LANTUS 01:13: under the [place] SOLOSTAR) 36 skin. Medical 100 unit/mL Branch [...] Units ity of (LANTUS 01:13: under the [place] SOLOSTAR) 36 skin. Medical 100 unit/mL Branch [...] Units ity of (LANTUS 01:13: under the [place] SOLOSTAR) 36 skin. Medical 100 unit/mL Branch (3 mL) InPn INSULIN 2019-10 Yes 5U inject 5 Univer s ASPART 1-12 Units ity of (NOVOLOG 01:13: under the [facility] FLEXPEN SC) 36 skin. Medical [...] Units ity of (LANTUS 01:13: under the [place] SOLOSTAR) 36 skin. Medical 100 unit/mL Branch (3 mL) InPn INSULIN 2019-10 Yes 5U inject 5 Univer s ASPART 1-12 Units ity of (NOVOLOG 01:13: under the [facility] s FLEXPEN SC) 36 skin. Medical Branch ALPRAZolam 2019-10 Yes .25mg Take 0.25 U nivers (XANAX) 1-12 mg by ity of 0.25 mg 01:13: mouth 2 [place] tablet 36 (two) Medical times Branch daily. HYDROXYZINE 2019-10 2020- No 25mg Take 25 mg Univers PAMOATE 1-11 11-11 by mouth ity of ORAL 20:04: 00:00 daily. [place] 34 :00 Medical Branch hydrocortis 2019-10 Yes [id number] Apply to Univers one 2.5 % 1-11 affected ity of cream 00:00: area(s) 2 [place] 00 (two) Medical times Branch daily. hydrOXYzine 2019- Yes [id number] 20mg Take 2 Univers 10 mg 1-11 tablets by ity of tablet 00:00: mouth [place] 00 every 8 Medical (eight) Branch hours as needed for Itching or Anxiety. Polyethylen 2019- Yes [id number] 17g Take 1 Univers e Glycol 1-11 Packet by ity of 3350 17 00:00: mouth [place] gram powder 00 every 24 Medi jose c (twenty-fo Branch ur) hours as needed for Constipati on. hydrocortis 2019-10 Yes [id number] Apply to Univers one 2.5 % 1-11 affected ity of cream 00:00: area(s) 2 [place] 00 (two) Medical times Branch daily. hydrOXYzine 2019- Yes [id number] 20mg Take 2 Univers 10 mg 1-11 tablets by ity of tablet 00:00: mouth [place] 00 every 8 Medical (eight) Branch hours as needed for Itching or Anxiety. Polyethylen 2019- Yes [id number] 17g Take 1 Univers e Glycol 1-11 Packet by ity of 3350 17 00:00: mouth [place] gram powder 00 every 24 Medi jose c (twenty-fo Branch ur) hours as needed for Constipati on. hydrocortis 2019- Yes [id number] Apply to Univers one 2.5 % 1-11 affected ity of cream 00:00: area(s) 2 [place] (two) Medical times Branch daily. hydrOXYzine 2019- Yes [id number] 20mg Take 2 Univers 10 mg 1-11 tablets by ity of tablet 00:00: mouth [place] 00 every 8 Medical (eight) Branch hours as needed for Itching or Anxiety. Polyethylen 2019- Yes [id number] 17g Take 1 Univers e Glycol 1-11 Packet by ity of 3350 17 00:00: mouth [place] gram powder 00 every 24 Medi jose c (twenty-fo Branch ur) hours as needed for Constipati on. hydrocortis 2019-10 Yes [id number] Apply to Univers one 2.5 % 1-11 affected ity of cream 00:00: area(s) 2 [place] (two) Medical times Branch daily. hydrOXYzine 2019-10 Yes [id number] 20mg Take 2 Univers 10 mg 1-11 tablets by ity of tablet 00:00: mouth [place] 00 every 8 Medical (eight) Branch hours as needed for Itching or Anxiety. Polyethylen 2019-10 Yes [id number] 17g Take 1 Univers e Glycol 1-11 Packet by ity of 3350 17 00:00: mouth [place] gram powder 00 every 24 Medi jose c (twenty-fo Branch ur) hours as needed for Constipati on. hydrocortis 2019-10 Yes [id number] Apply to Univers one 2.5 % 1-11 affected ity of cream 00:00: area(s) 2 [place] (two) Medical times Branch daily. hydrOXYzine 2019-10 Yes [id number] 20mg Take 2 Univers 10 mg 1-11 tablets by ity of tablet 00:00: mouth [place] 00 every 8 Medical (eight) Branch hours as needed for Itching or Anxiety. Polyethylen 2019- Yes [id number] 17g Take 1 Univers e Glycol 1-11 Packet by ity of 3350 17 00:00: mouth [place] gram powder 00 every 24 Medi jose c (twenty-fo Branch ur) hours as needed for Constipati on. hydrocortis 2019-10 Yes [id number] Apply to Univers one 2.5 % 1-11 affected ity of cream 00:00: area(s) 2 [place] (two) Medical times Branch daily. hydrOXYzine 2019-10 Yes [id number] 20mg Take 2 Univers 10 mg 1-11 tablets by ity of tablet 00:00: mouth [place] 00 every 8 Medical (eight) Branch hours as needed for Itching or Anxiety. Polyethylen 2019- Yes [id number] 17g Take 1 Univers e Glycol 1-11 Packet by ity of 3350 17 00:00: mouth [place] gram powder 00 every 24 Medi jose c (twenty-fo Branch ur) hours as needed for Constipati on. hydrocortis 2019- Yes [id number] Apply to Univers one 2.5 % 1-11 affected ity of cream 00:00: area(s) 2 [place] 00 (two) Medical times Branch daily. hydrOXYzine 2019-10 Yes [id number] 20mg Take 2 Univers 10 mg 1-11 tablets by ity of tablet 00:00: mouth [place] 00 every 8 Medical (eight) Branch hours as needed for Itching or Anxiety. Polyethylen 2019-10 Yes [id number] 17g Take 1 Univers e Glycol 1-11 Packet by ity of 3350 17 00:00: mouth [place] gram powder 00 every 24 Medi jose c (twenty-fo Branch ur) hours as needed for Constipati on. triamcinolo 2019- 2020- No [id number] Apply to [facility] 10-23 area(s) 2 ity of acetonide 00:00: 05:59 (two) [place] 0.1 % cream 00 :00 times Medical daily for Branch 14 days. triamcinolo 2019- 2020- No [id number] Apply to [facility] 10-23 area(s) 2 ity of acetonide 00:00: 05:59 (two) [place] 0.1 % cream 00 :00 times Medical daily for Branch 14 days. triamcinolo 2019- 2020- No [id number] Apply to [facility] 10-23 area(s) 2 ity of acetonide 00:00: 05:59 (two) [place] 0.1 % cream 00 :00 times Medical daily for Branch 14 days. KCL 2019- 2020- No 40meq 40 mEq, Univers (KLOR-CON - 11-10 Oral, ONCE ity of M20) tablet 16:15: 16:23 NOW, 1 [place] 40 mEq 00 :00 dose, [facility] 08/22/20 Branch at 1015, Routine HYDROmorpho 2019-10 Yes 1mg 1 mg, Unive rs ne 1-10 Oral, ity of (DILAUDID) 15:07: Q6HPRN, [place] tablet 1 mg 53 Starting [facility] 08/22/20 at 0907, Until Discontinu ed, Routine, Pain (scale 7-10) hydrocortis 2019-10 Yes Topical Uni vers one 2.5 % 1-10 (Apply To ity o f cream 02:00: Affected [place] 00 Areas), Medical BID, First Branch dose on [facility] 08/21/20 at 2000, Until Discontinu ed, Routine triamcinolo 2019-10 Yes Topical, Un toi ne 1-10 BID, First ity of acetonide 02:00: dose on [place] (TRIDERM) 00 [facility] Medical 0.1 % cream 08/21/20 at Br anch 2000, Until Discontinu ed, Routine hydrOXYzine 2019-10 Yes 20mg 20 mg, Univ ers (ATARAX) 09 Oral, ity of tablet 20 17:39: Q8HPRN, [place] mg 12 Starting Medical [facility] 08/21/20 at 1139, Until Discontinu ed, Routine, Itching, Anxiety sennosides- 2019-10 Yes 1{tbl} 1 tablet, Univers docusate 10-21 Oral, ity of sodium 15:00: DAILY, [place] (SENOKOT-S) 00 First dose Me dical 8.6-50 mg [address] [facility] per tablet 08/21/20 at 1 tablet 0900, Until Discontinu ed, Routine hydrocortis 2019-10 2020- No Topical Un toi one 1 % 10-21 (Apply To ity of cream 15:00: 22:54 Affected [place] 00 :48 Areas), Medical DAILY, Branch First dose on [facility] 08/21/20 at 0900, Until Discontinu ed, Routine venlafaxine 2019-10 Yes 150mg 150 mg, Un toi XR (EFFEXOR 09 Oral, TID, it y of XR) 24 hr 14:00: First dose [place] capsule 150 00 on [facility] Medica l mg 08/21/20 at Branch [...] Starting Medica l mg [facility] 08/21/20 at 0656, Until Fri08/21/20 at 1139, Routine, Itching, Mild Rash, Congestion /Allergies , alternate with hydroxyzin e hydrOXYzine 2019-10 No 10mg 10 mg, Uni vers (ATARAX) 10-21 Oral, ity of tablet 10 10:20: 12:57 Q6HPRN, [place] mg 22 :12 Starting Medical [facility] 08/21/20 at 0420, Until Fri08/21/20 at 0657, [...] 1 ity o f 09:30: 09:14 dose, [facility] [place] 00 :00 08/21/20 at [facility] 0330, Branch Routine Polyethylen 2019-10 Yes 17g 17 g, Unive rs e Glycol 10-21 Oral, ity of 3350 08:29: [id number], [place] (MIRALAX) 09 Starting Medica l powder [address] [facility] 08/21/20 at 0229, Until Discontinu ed, Routine, Constipati on lanolin 2019-10 Yes Topical, Univer s alcohol-mo- 10-21 PRN, ity of w.pet-ce[place] 08:26: [place] (EUCERIN[place] 30 [facility] Medical cream 08/21/20 at Branch 0226, [...] of 40 mg 08:22: 00:00 daily with [place] capsule 59 :00 breakfast. Medica l Branch [...] 1-3) sotalol 2019-10 2020- No [facility] (BET[facility] 10-21 mouth ity of 240 mg 07:43: 00:00 every 12 [place] tablet 30 :00 (twelve) Medical hours. Branch blood sugar Yes Use to [facility] ers diagnostic 4-25 check ity of (FREESTYLE 00:00: blood [place] LITE 00 glucose Medical STRIPS) 4-5 times Branch strip daily. blood sugar Yes Use to [facility] ers diagnostic 4-25 check ity of (FREESTYLE 00:00: blood [place] LITE 00 glucose Medical STRIPS) 4-5 times Branch strip daily. blood sugar Yes Use to [facility] ers diagnostic 4-25 check ity of (FREESTYLE 00:00: blood [place] LITE 00 glucose Medical STRIPS) 4-5 times Branch strip daily. blood sugar Yes Use to [facility] ers diagnostic 4-25 check ity [...] 13:00:00 148 mm[Hg] Univer sity of pressure [place] [facility] Diastolic blood 2021-08-22 13:00:00 84 mm[Hg] Unive rsity of pressure [place] [facility] Heart rate 2021-08-22 13:00:00 103 /min Universi ty [facility] Respiratory rate 2021-08-22 13:00:00 18 /min Univ ersity of [facility] Oxygen saturation in 2021-08-22 13:00:00 95 /min University of Arterial blood by [facility] Pulse oximetry Branch Body temperature 2021-08-22 12:22:00 36.72 [place] Univ ersity of [facility] Systolic blood 2020-12-17 18:35:00 139 mm[Hg] Univer sity of pressure [place] [facility] Diastolic blood 2020-12-17 18:35:00 87 mm[Hg] Unive rsity of pressure [place] [facility] Heart rate 2020-12-17 18:35:00 110 /min Universi ty [facility] Body temperature 2020-12-17 18:35:00 37.72 [place] [facility] ersity of [facility] Respiratory rate 2020-12-17 18:35:00 18 /min Univ ersity of [facility] Oxygen saturation in 2020-12-17 18:35:00 93 /min University of Arterial blood by [facility] Pulse oximetry Branch Body height 2020-12-12 08:21:00 180.3 cm Universi ty [facility] [place] [facility] Body weight 2020-12-12 08:21:00 103.42 kg Universi ty [facility] [place] [facility] BMI 2020-12-12 08:21:00 31.80 kg/m2 [facility]i ty [facility] [place] [facility] Systolic blood 2020-12-17 18:35:00 139 mm[Hg] Univer sity of pressure [place] [facility] Diastolic blood 2020-12-17 18:35:00 87 mm[Hg] Unive rsity of pressure [place] [facility] Heart rate 2020-12-17 18:35:00 110 /min Universi ty [facility] [place] [facility] Body temperature 2020-12-17 18:35:00 37.72 [place] Univ ersity of [place] [facility] Respiratory rate 2020-12-17 18:35:00 18 /min Univ ersity of [place] [facility] Oxygen saturation in 2020-12-17 18:35:00 93 /min University of Arterial blood by [employer] Pulse oximetry Branch Body height 2020-12-12 08:21:00 180.3 cm Universi ty [facility] [place] [facility] Body weight 2020-12-12 08:21:00 103.42 kg Universi ty [facility] [place] [facility] BMI 2020-12-12 08:21:00 31.80 kg/m2 Universi ty [facility] [place] [facility] Systolic blood 2020-08-23 19:27:00 140 mm[Hg] Univer sity of pressure [place] [facility] Diastolic blood 2020-08-23 19:27:00 79 mm[Hg] Unive rsity of pressure [place] [facility] Heart rate 2020-08-23 19:27:00 99 /min Universi ty [facility] [place] [facility] Body temperature 2020-08-23 19:27:00 36 [place] Univ ersity of [place] [facility] Respiratory rate 2020-08-23 19:27:00 18 /min Univ ersity of [place] [facility] Oxygen saturation in 2020-08-23 19:27:00 93 /min University of Arterial blood by [employer] Pulse oximetry Branch Body weight 2020-08-21 07:20:00 104.962 kg Universi ty [facility] [place] [facility] BMI 2020-08-21 07:20:00 32.27 kg/m2 Universi ty [facility] [place] [facility] Systolic blood 2020-08-23 19:27:00 140 mm[Hg] Univer sity of pressure [place] [facility] Diastolic blood 2020-08-23 19:27:00 79 mm[Hg] [facility] of pressure [facility] Heart rate 2020-08-23 19:27:00 99 /min [facility] Body temperature 2020-08-23 19:27:00 36 [place] [facility] rate 2020-08-23 19:27:00 18 /min [facility] Oxygen saturation in 2020-08-23 19:27:00 93 /min [facility] Arterial blood by [facility] Pulse oximetry [place] Body weight 2020-08-21 07:20:[address] [facility] BMI 2020-08-21 07:20:00 32.27 kg/m2 [facility] Procedures Procedure Date / Time Performing Clinician Source Performed POCT GLUCOSE (AUTOMATED) 2020-12-17 15:42:00 Harrison, Premal G [facility] BASIC METABOLIC PANEL 2020-12-17 10:45:00 Paul Bean [facility] (NA, K, CL, CO2, GLUCOSE, [place] Medica l Branch BUN, CREATININE, CA) CBC WITH DIFF 2020-12-17 10:45:00 Paul Bean [facility] POCT GLUCOSE (AUTOMATED) 2020-12-17 02:36:00 Harrison, Corey Hospitalal G [facility] XR TIBIA FIBULA 2 VW LEFT 2020-12-16 23:38:00 Paul Bean [facility] POCT GLUCOSE (AUTOMATED) 2020-12-16 23:20:00 Harrison, [facility] PO[facility]SE (AUTOMATED) 2020-12-16 20:10:00 Harrison, [facility] PO[facility]SE (AUTOMATED) 2020-12-16 14:43:00 Harrison, [facility]al [facility] BASIC METABOLIC PANEL 2020-12-16 13:51:00 Paul Bean [facility] (NA, K, CL, CO2, GLUCOSE, [place] [facility] BUN, CREATININE, CA) CBC WITH DIFF 2020-12-16 13:51:00 Paul Bean [facility] POCT GLUCOSE (AUTOMATED) 2020-12-16 04:00:00 Harrison, Premal G Uni versity of [facility] POCT GLUCOSE (AUTOMATED) 2020-12-16 00:14:00 Harrison, Premal G Uni versity of [facility] CT CHEST PULMONARY 2020-12-15 22:29:38 Paul Bean [facility] ANGIOGRAM [facility] POCT GLUCOSE (AUTOMATED) 2020-12-15 19:26:00 Harrison, Premal G Uni versity of [facility] POCT GLUCOSE (AUTOMATED) 2020-12-15 15:13:00 Hunter, [facility]al [facility] HB ECG ROUTINE & RHYTHM 2020-12-15 14:25:27 Cailin Romo [facility] STRIP [facility] Branch MAGNESIUM 2020-12-15 12:01:00 Paul Bean Sivakumar [facility] BASIC METABOLIC PANEL 2020-12-15 12:01:00 Paul Bean [facility] (NA, K, CL, CO2, GLUCOSE, [place] [facility] BUN, CREATININE, CA) CBC WITH DIFF 2020-12-15 12:01:00 Paul Bean [facility] POCT GLUCOSE (AUTOMATED) 2020-12-15 03:57:00 Harrison, Premal G Uni versity of [facility] POCT GLUCOSE (AUTOMATED) 2020-12-14 23:31:00 Harrison, Premal G Uni versity of [facility] POCT GLUCOSE (AUTOMATED) 2020-12-14 19:08:00 Harrison, Premal G Uni versity of [facility] POCT GLUCOSE (AUTOMATED) 2020-12-14 15:11:00 Harrison, Premal G Uni versity of [facility] POCT GLUCOSE (AUTOMATED) 2020-12-14 02:36:00 Harrison, Premal G Uni versity of [facility] POCT GLUCOSE (AUTOMATED) 2020-12-13 23:32:00 Harrison, Premal G Uni versity of [facility] POCT GLUCOSE (AUTOMATED) 2020-12-13 18:08:00 Harrison, Premal G Uni versity of [facility] BASIC METABOLIC PANEL 2020-12-13 15:39:00 Paul Bean [facility] (NA, K, CL, CO2, GLUCOSE, [place] [facility] BUN, CREATININE, CA) CBC WITH DIFF 2020-12-13 15:39:00 Paul Bean [facility] POCT GLUCOSE (AUTOMATED) 2020-12-13 14:06:00 Harrison, Premal G Uni versity of [facility] POCT GLUCOSE (AUTOMATED) 2020-12-13 03:07:00 Harrison, Premal G Uni versity of [facility] POCT GLUCOSE (AUTOMATED) 2020-12-12 23:52:00 Harrison, Premal G Uni versity of [facility] POCT GLUCOSE (AUTOMATED) 2020-12-12 20:28:00 Harrison, Premal G Uni versity of [facility] POCT GLUCOSE (AUTOMATED) 2020-12-12 19:14:00 Harrison, Premal G Uni versity of [facility] POCT GLUCOSE (AUTOMATED) 2020-12-12 14:33:00 Harrison, Premal G Uni versity of [facility] MAGNESIUM 2020-12-12 08:58:00 Paul Bean [facility] BASIC METABOLIC PANEL 2020-12-12 08:58:00 Paul Bean [facility] (NA, K, CL, CO2, GLUCOSE, [place] [facility] BUN, CREATININE, CA) CBC WITH DIFF 2020-12-12 08:58:00 Paul Bean [facility] US ABDOMEN LIMITED 2020-12-12 06:32:26 Paul Bean [facility] POCT GLUCOSE (AUTOMATED) 2020-12-12 03:40:00 Harrison, Premal G Uni versity of [facility] POCT GLUCOSE (AUTOMATED) 2020-12-12 00:06:00 Harrison, Premal G Uni versity [facility] XR HIPS 3 VW LEFT 2020-12-11 20:20:00 Paul Bean [facility] HB ECG ROUTINE & RHYTHM 2020-12-11 20:04:06 Demetrius [facility] STRIP [facility] VITAMIN B6, PLASMA 2020-12-11 19:17:00 Vikas [facility] POCT GLUCOSE (AUTOMATED) 2020-12-11 19:06:00 Rene [facility] CREATINE KINASE 2020-12-11 18:22:00 Parvez Clarisse [facility] VITAMIN B12, LEVEL 2020-12-11 18:22:00 Vikas [facility] FOLATE 2020-12-11 18:22:00 Vikas [facility] THYROID STIMULATING 2020-12-11 18:22:00 [facility] PROCALCITONIN 2020-12-11 18:22:00 Vikas [facility] VITAMIN B1 (THIAMINE), 2020-12-11 18:22:00 Vikas [facility] WHOLE BLOOD [facility] CT HEAD WO CONTRAST 2020-12-11 14:07:[address] [facility] URINALYSIS 2020-12-11 13:44:00 Singer Paco [facility] URINE CULTURE 2020-12-11 13:44:00 Singer [facility] [place] COVID-19 (ID NOW RAPID 2020-12-11 12:31:00 Paco Lacey [facility] TESTING) [facility] LAB ONLY COVID 2020-12-11 12:31:00 Paco Lacey [facility] XR CHEST 1 VW 2020-12-11 12:07:24 Singer [facility] [place] BLOOD CULTURE SCREEN 2020-12-11 12:02:00 Paco Lacey [facility] MAGNESIUM 2020-12-11 12:02:00 [facility] FERRITIN SERUM 2020-12-11 12:02:00 Vikas [facility] COMP. METABOLIC PANEL 2020-12-11 12:02:00 Singer Paco [facility] ([id number]) Medical Branch CBC WITH DIFF 2020-12-11 12:02:00 Singer [facility] [place] LACTIC ACID WHOLE BLOOD 2020-12-11 12:02:00 Singer Paco [facility] BLOOD CULTURE SCREEN 2020-12-11 11:42:00 Paco Lacey [facility] EMERGENCY SERVICES 2020-12-11 06:01:00 Doctor Unassnadya, [facility] AGREEMENTS AND [facility] AUTHORIZATIONS HOSPITAL ADMISSION 2020-12-11 06:01:00 Doctor Tabitha [facility] Name Medical [place] [facility] - OTHER 2020-11-11 06:01:00 Doctor Tabitha [facility] [place] [facility] - OTHER 2020-10-30 06:01:00 Doctor Tabitha [facility] Name Medical [place] EXTERNAL PROVIDER RECORDS 2020-09-01 06:01:00 Doctor Tabitha [facility] Name Medical [place] POCT GLUCOSE (AUTOMATED) 2020-08-23 18:09:[address] [facility] POCT GLUCOSE (AUTOMATED) 2020-08-23 14:14:[address] [facility] MAGNESIUM 2020-08-23 11:18:00 [place] [facility] BASIC METABOLIC PANEL 2020-08-23 11:18:00 [place] [facility] (NA, K, CL, CO2, GLUCOSE, Medica l Branch BUN, CREATININE, CA) CBC WITH DIFF 2020-08-23 11:18:00 [place] [facility] POCT GLUCOSE (AUTOMATED) 2020-08-23 10:21:[address] [facility] POCT GLUCOSE (AUTOMATED) 2020-08-23 05:55:[address] [facility] POCT GLUCOSE (AUTOMATED) 2020-08-23 03:00:[address] [facility] POCT GLUCOSE (AUTOMATED) 2020-08-22 23:38:00 Stefania Kelly Elias versity [facility] POCT GLUCOSE (AUTOMATED) 2020-08-22 19:04:00 [facility] ([facility]OM[facility]) 2020-08-22 13:49:00 Bety [place] Elias versity [facility] MAGNESIUM 2020-08-22 10:10:00 [facility] 2020-08-22 10:10:00 Aguila Melchor [facility] ([id number]) (ALB,T.PRO,[facility] T,BU/BC,ALT,AST,ALK PHOS) BASIC METABOLIC PANEL 2020-08-22 10:10:00 [place], [facility] (NA, K, CL, CO2, GLUCOSE, Medica l Branch BUN, CREATININE, CA) LIPID PANEL ([id number])(TOTAL 2020-08-22 10:10:00 [place], [facility] TRIGLYCERIDES, HDL) CBC WITH DIFF 2020-08-22 10:10:00 [facility] POCT GLUCOSE (AUTOMATED) 2020-08-22 10:10:[address] [facility] POCT GLUCOSE (AUTOMATED) 2020-08-22 07:13:[address] [facility] POCT GLUCOSE (AUTOMATED) 2020-08-22 02:24:[address] [facility] POCT GLUCOSE (AUTOMATED) 2020-08-21 23:40:00 Stefania Kelly Elias versity [facility] POCT GLUCOSE (AUTOMATED) 2020-08-21 18:10:[address] [facility] POCT GLUCOSE (AUTOMATED) 2020-08-21 13:39:00 Stefania [facility] ETHANOL 2020-08-21 12:35:00 Jos Quiroz [facility] ACTIVATED PARTIAL 2020-08-21 12:35:00 Stefnaia [facility] GALV ONLY - SYPHILIS 2020-08-21 12:35:00 Stefania [facility] IGG/IGM [facility] LACTATE DEHYDROGENASE 2020-08-21 10:09:00 [place], [facility] GALV/CLC ONLY - URINE 2020-08-21 10:09:00 Jos Quiroz [facility] DRUG (IMMUNOASSAY) - 4 ER Medica l Branch PANEL URINALYSIS 2020-08-21 10:09:00 [place], [facility] URINE CULTURE 2020-08-21 10:09:00 Ramya, [facility] PROCALCITONIN 2020-08-21 10:09:00 [place], [facility] POCT GLUCOSE (AUTOMATED) 2020-08-21 09:41:00 Stefania [facility] PROTHROMBIN TIME / INR 2020-08-21 08:32:00 [place], [facility] ACTIVATED PARTIAL 2020-08-21 08:32:00 [place], [facility] C-REACTIVE PROTEIN 2020-08-21 08:31:00 Ramya, [facility] HEPATIC FUNCTION PANEL 2020-08-21 08:31:00 Ramya, [facility] ([id number]) (ALB,T.PRO,BILI [facility] T,BU/BC,ALT,AST,ALK PHOS) BASIC METABOLIC PANEL 2020-08-21 08:31:00 [place], [facility] (NA, K, CL, CO2, GLUCOSE, [facility] BUN, CREATININE, CA) SEDIMENTATION RATE 2020-08-21 08:31:00 Ramya, [facility] CBC WITH DIFF 2020-08-21 08:31:00 [place], [facility] GLYCOSYLATED HEMOGLOBIN 2020-08-21 08:31:00 [place], [facility] (A1C) [facility] HIV 1/2 AG-AB WITH REFLEX 2020-08-21 08:31:00 [place], [facility] [place] [facility] (ID NOW RAPID 2020-08-21 08:20:00 [facility] Medical Branch LAB ONLY COVID 2020-08-21 08:20:00 Haily Bui [place] [facility] Encounters Start End Encounter Admission Attending Care Care Encounter Source Date/Time Date/Time Type Type Clinicians Facility Department ID 2020-08-21 Inpatient U ST[facility]IA [facility] [id number] Univers 01:07:00 KELLY cantu [facility] 2021-08-22 2021-08-22 Emergency [facility] [id number] Univers 06:21:00 08:02:00 SWEETIE cantu [facility] 2021-08-22 2021-08-22 Emergency [facility] [id number] Univers 06:21:00 08:02:00 Sweetie LOTT [id number] i ty of [place] 4.2.7.2.686 [facility] [id number] [facility] 084 Branch 2021-08-09 2021-08-09 Outpatient ZAKI, [facility] [id number] [facility] 10:27:03 10:27:03 ADRIANA lopez of Medicin e 2020-12-28 2020-12-28 Telephone [facility] 1.2.840.114 [id number] 00:00:00 00:00:00 Calvin H PRIMARY [id number] CARE 4.2.7.2.686 PAVILLION [id number] 2020-12-28 2020-12-28 Telephone [facility] 1.2.840.114 [id number] Univers 00:00:00 00:00:00 Calvin H PRIMARY [id number] it y of CARE 4.2.7.2.686 [facility] [id number] Or dical 220 Branch 2020-12-19 2020-12-19 Transition Tuan Peters 1.2.840.114 [id number] 00:00:00 00:00:00 of Care Ruchi Braswell [id number] [place] 4.2.7.2.686 [id number] 2020-12-19 2020-12-19 Transition Tuan Peters 1.2.840.114 [id number] Univers 00:00:00 00:00:00 of Care Ruchi Braswell [id number] it y of [place] 4.2.7.2.686 Jennifer pelletier [id number] [facility] 403 Branch 2020-12-11 2020-12-17 [facility] Paco Lacey Ayleen 1.2.840.1 [id number] 05:11:00 16:00:00 Encounter Rene Harrison [place] [id number] [facility] [id number] [id number] [facility] 2020-12-11 2020-12-17 [facility] Paco Lacey 1.2.840.1 [id number] [facility] 05:11:00 16:00:00 Encounter Rene Harrison [place] [id number] ity [facility] 4.2.7.2.686 [place] [id number] [place] [id number] [place] 2020-12-11 2020-12-11 Emergency X [facility] ERT [id number] Univers 05:11:00 05:11:00 PACO cantu [facility] 2020-11-16 2020-11-16 Emergency X [facility] ERT [id number] Univers 09:31:00 09:31:00 PACO cantu [facility] 2020-11-11 2020-11-11 Orders Doctor CUI 1.2.840.114 [id number] 00:00:00 00:00:00 Only UnassignedNATTY [id number] [facility] 4.2.7.2.686 [id number] 2020-11-11 2020-11-11 Orders Doctor CUI 1.2.840.114 [id number] Univers 00:00:00 00:00:00 Only UnassignedNATTY [id number] ity of [facility] 4.2.7.2.686 Jeff as [phone] [address] 2020-11-07 2020-11-07 Telephone [facility] [id number] 00:00:00 00:00:00 Sendsiobhan Lott [id number] [place] 4.2.7.2.686 Professio [id number] [address] 2020-11-07 2020-11-07 Telephone [facility] [id number] Univers 00:00:00 00:00:00 Sendil Danitza Lott [id number] ity of [place] 4.2.7.2.686 [place] Profess[place] [phone] [address] 2020-10-30 2020-10-30 Orders Doctor CUI 1.2.840.114 [id number] 00:00:00 00:00:00 Only Unassigned, NATTY [id number] [facility] 4.2.7.2.686 [id number] [facility] 2020-10-30 2020-10-30 Orders Doctor BASILIA 1.2.840.114 [id number] Univers 00:00:00 00:00:00 Only Unassigned, NATTY [id number] ity of [facility] 4.2.7.2.686 Jeff as [id number] [address] 2020-09-26 2020-09-26 Telephone STONE Mccabe 1.2.840.114 [id number] 00:00:00 00:00:00 [facility] [id number] CLINICS 4.2.7.2.686 [id number] 2020-09-26 2020-09-26 Telephone STONE Mccabe 1.2.840.114 [id number] Univers 00:00:00 00:00:00 [facility] [id number] i ty of CLINICS 4[place]7.2.686 [place] [phone] [address] 2020-09-01 2020-09-01 Orders Doctor BASILIA 1.2.840.114 [id number] 00:00:00 00:00:00 Only Unassigned, NATTY 350.1.13.10 [facility] 4.2.7.2.686 [id number] 009 2020-09-01 2020-09-01 Orders Doctor BASILIA 1.2.840.114 [id number] Univers 00:00:00 00:00:00 Only Unassigned, NATTY 350.1.13.10 ity of [facility] 4.2.7.2.686 Jeff as [id number] [facility] 009 Branch 2020-08-25 2020-08-25 Transition Tuan Peters 1.2.840.114 [id number] 00:00:00 00:00:00 of Care Ruchiliban Garciay 350.1.13.10 [place] 4.2.7.2.686 [id number] 2020-08-25 2020-08-25 Transition Tuan Peters 1.2.840.114 [id number] Univers 00:00:00 00:00:00 of Care Ruchi Garciay 350.1.13.10 it y of [place] 4.2.7.2.686 [place] [id number] [facility] 403 Branch 2020-08-21 2020-08-23 [facility] Ayleen 1.2.840.114 [id number] 01:07:00 18:35:00 Encounter Kelly Amaya [id number] [facility] 4.2.7.2.686 [id number] [facility] 2020-08-21 2020-08-23 [facility] Kelly [facility] Ayleen 1. 2.840.114 [id number] [facility] 01:07:00 18:35:00 Encounter Mukul Gallardo ErynKimmy Dorany 350.1.13. 10 ity of [facility] 4.2.7.2.686 Jeff as [id number] [address] Results Test Description Test Time Test Comments Results Result Comments Source POCT GLUCOSE (AUTOMATED) 2020-12-17 15:43:35 Test Item Value Reference Range Interpretation Comme nts POCT GLU (test code = 6653237947) 129 mg/dL 70-110 H Lab Interpretation (test code = 99403-9) [facility]normal [facility] (NA, K, CL, CO2, GLUCOSE, BUN, CREATININE, CA)2020-12-17 11:45:07 Test Item Value Reference Range Interpretation Comments NA (test code = 137 mmol/L 135-145 8735403067) K (test code = 3.5 mmol/L 3.5-5.0 0622261031) CL (test code = 103 mmol/L 98-108 9055668729) CO2 TOTAL (test code = 26 mmol/L 23-31 9501249531) AGAP (test code = 2-16 1289298295) BUN (test code = 11 mg/dL 7-23 5402524809) GLUCOSE (test code = 175 mg/dL 70-110 H 0711197287) CREATININE (test code = 0.62 mg/dL 0.60-1.25 1471006840) CALCIUM (test code = 9.0 mg/dL 8.6-10.6 8632550775) eGFR Calculation mL/min/1.73m2 (Non-) (test code = 4906053860) eGFR Calculation mL/min/1.73m2 () (test code = 6460335963) JAMES (test code = JAMES) Association of [...] tests). Lab Interpretation Abnormal (test code = 59176-1) [facility] WITH [id number] 11:07:27 Test Item Value Reference Range Interpretation [...] RDW-SD (test code = 45.2 fL 38.5-51.6 05931-5) RDW-CV (test code = 16.9 % 12.1-15.4 H 788-0) PLT (test code = See_Comment H [Automated 777-3) message] The sy stem which generated this result transmitted reference range : 150 - 328 10*3/ ?L. The reference r torito was not used to interpret this result as normal/abnormal . MPV (test code = 8.1 fL 9.8-13.0 L 80656-1) NRBC/100 WBC (test See_Comment [Automat ed code = 6850537349) message] The system which generated this result transmitted reference range : 0.0 - 10.0 /100 WBCs. The refer ence range was not u sed to interpret th is result as normal/abnormal . NRBC x10^3 (test code <0.01 See_Comment [Auto mated = 1151340511) message] The s ystem which generated this result transmitted reference range : 10*3/?L. The reference range was not used to interpret this result as normal/abnormal . GRAN MAT (NEUT) % 72.8 % (test code = 770-8) IMM GRAN % (test code 0.60 % = 2637385188) LYMPH % (test code = 18.4 % 736-9) MONO % (test code = 5.7 % 5905-5) EOS % (test code = 1.8 % 713-8) BASO % (test code = 0.7 % 706-2) GRAN MAT x10^3(ANC) 8.23 10*3/uL 1.99-6.95 H (test code = 2683325365) IMM GRAN x10^3 (test 0.07 10*3/uL 0.00-0.06 H code = 4862688264) LYMPH x10^3 (test code 2.08 10*3/uL 1.09-3.23 = 731-0) MONO x10^3 (test code 0.65 10*3/uL 0.36-1.02 = 742-7) EOS x10^3 (test code = 0.20 10*3/uL 0.06-0.53 711-2) BASO x10^3 (test code 0.08 10*3/uL 0.01-0.09 = 704-7) Lab Interpretation Abnormal (test code = 01817-0) [facility] 06:03:38 Test Item Value Reference Range Interpretation Comments POCT GLU (test code = 3929390140) 75 mg/dL 70-110 Lab Interpretation (test code = Normal 09059-7) [facility], [id number] 00:01:00 Test Item Value Reference Range Interpretation Comments VIT B6 (test code = 13.1 nmol/L 20.0-125.0 L INTERPRE TIVE 83993-6) INFORMATION: Vi tamin B6 (Pyridoxal 5-Phosphate) Pyridoxal 5'-phosphate me asured in a specimen collected follo wing an 8-hour or overnight fast accurately clara keene vitamin B6 nutritional sta tus. Non-fasting spe cimen concentration reflects recent vitamin intake. This test was develo ped and its perform ance characteristics determined by [facility]. I t has not been cleare d or approved by the [place] Food and Drug Administration. This test was perfor med in a CLIA certifie d laboratory and is intended for cl inical purposes.Perfor med By: Sophia [employer] [place] [address] [id number] Director: Namrata Klein MD Lab Interpretation Abnormal (test code = 72299-7) [facility] TIBIA FIBULA 2 VW [id number] 23:57:09 Tricompartmental knee joint osteoarthrosis.XR TIBIA FIBULA [...] Interpretation Comments POCT GLU (test code = 7562630692) 114 mg/dL 70-110 H Lab Interpretation (test code = Abnormal 88066-4) [facility] GLUCOSE (AUTOMATED)2020-12-16 20:12:00 Test Item Value Reference Range Interpretation Comments POCT GLU (test code = 2776269762) 105 mg/dL 70-110 Lab Interpretation (test code = Normal 16834-6) [facility] GLUCOSE (AUTOMATED)2020-12-16 14:44:00 Test Item Value Reference Range Interpretation Comments POCT GLU (test code = 9077243705) 153 mg/dL 70-110 H Lab Interpretation (test code = Abnormal 51520-0) [facility] (NA, K, CL, CO2, GLUCOSE, BUN, CREATININE, CA)2020-12-16 14:23:00 Test Item Value Reference Range Interpretation Comments NA (test code = 138 mmol/L 135-145 1151439029) K (test code = 3.4 mmol/L 3.5-5.0 L 4825714148) CL (test code = 100 mmol/L 98-108 8985377342) CO2 TOTAL (test code = 31 mmol/L 23-31 7395409987) AGAP (test code = 2-16 0526328962) BUN (test code = 11 mg/dL 7-23 4597426467) GLUCOSE (test code = 162 mg/dL 70-110 H 5478306081) CREATININE (test code = 0.64 mg/dL 0.60-1.25 5590492505) CALCIUM (test code = 8.9 mg/dL 8.6-10.6 6747334292) eGFR Calculation mL/min/1.73m2 (Non-) (test code = 7374628095) eGFR Calculation mL/min/1.73m2 () (test code = 8163177276) JAMES (test code = JAMES) Association of [...] tests). Lab Interpretation Abnormal (test code = 29799-9) [facility] WITH [id number] 14:05:00 Test Item Value Reference Range Interpretation [...] RDW-SD (test code = 45.4 fL 38.5-51.6 24591-5) RDW-CV (test code = 17.0 % 12.1-15.4 H 788-0) PLT (test code = See_Comment H [Automated 777-3) message] The sy stem which generated this result transmitted reference range : 150 - 328 10*3/ ?L. The reference r torito was not used to interpret this result as normal/abnormal . MPV (test code = 8.0 fL 9.8-13.0 L 30082-7) NRBC/100 WBC (test See_Comment [Automat ed code = 0707384248) message] The system which generated this result transmitted reference range : 0.0 - 10.0 /100 WBCs. The refer ence range was not u sed to interpret th is result as normal/abnormal . NRBC x10^3 (test code <0.01 See_Comment [Auto mated = 2749871499) message] The s ystem which generated this result transmitted reference range : 10*3/?L. The reference range was not used to interpret this result as normal/abnormal . GRAN MAT (NEUT) % 70.0 % (test code = 770-8) IMM GRAN % (test code 0.70 % = 3559193287) LYMPH % (test code = 20.5 % 736-9) MONO % (test code = 7.1 % 5905-5) EOS % (test code = 1.0 % 713-8) BASO % (test code = 0.7 % 706-2) GRAN MAT x10^3(ANC) 9.44 10*3/uL 1.99-6.95 H (test code = 4476624159) IMM GRAN x10^3 (test 0.09 10*3/uL 0.00-0.06 H code = 3464758073) LYMPH x10^3 (test code 2.76 10*3/uL 1.09-3.23 = 731-0) MONO x10^3 (test code 0.96 10*3/uL 0.36-1.02 = 742-7) EOS x10^3 (test code = 0.13 10*3/uL 0.06-0.53 711-2) BASO x10^3 (test code 0.10 10*3/uL 0.01-0.09 H = 704-7) Lab Interpretation Abnormal (test code = 03497-7) [facility] - [facility] # [id number] 13:01:00 Test Item Value Reference Range Interpretation Comments Blood Culture-Aerobic No organisms No growth Previo us (test code = 05048-1) isolated prelim inary verified result was Culture In Progress on 12/11/2020 at 100 1 CSTPrevious preliminary verified result was No growth a t 24 hours on 12/12/2020 at 070 1 CSTPrevious preliminary verified result was No growth a t 48 hours on 12/13/2020 at 070 1 CSTPrevious preliminary verified result was No growth a t 72 hours on 12/14/2020 at 070 1 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 Blood No organisms No growth Previous Culture-Anaerobic isolated preliminar y (test code = 13497-0) verifi ed result was Culture In Progress on 12/11/2020 at 100 1 CSTPrevious preliminary verified result was No growth a t 24 hours on 12/12/2020 at 070 1 CSTPrevious preliminary verified result was No growth a t 48 hours on 12/13/2020 at 070 1 CSTPrevious preliminary verified result was No growth a t 72 hours on 12/14/2020 at 070 1 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 Lab Interpretation Normal (test code = 70116-2) [facility] Culture - Peripheral # [id number] 13:01:00 Test Item Value Reference Range Interpretation Comments Blood Culture-Aerobic No organisms No growth Previo us (test code = 25621-7) isolated prelim inary verified result was Culture In Progress on 12/11/2020 at 100 1 CSTPrevious preliminary verified result was No growth a t 24 hours on 12/12/2020 at 070 1 CSTPrevious preliminary verified result was No growth a t 48 hours on 12/13/2020 at 070 1 CSTPrevious preliminary verified result was No growth a t 72 hours on 12/14/2020 at 070 1 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 Blood No organisms No growth Previous Culture-Anaerobic isolated preliminar y (test code = 15610-5) verifi ed result was Culture In Progress on 12/11/2020 at 100 1 CSTPrevious preliminary verified result was No growth a t 24 hours on 12/12/2020 at 070 1 CSTPrevious preliminary verified result was No growth a t 48 hours on 12/13/2020 at 070 1 CSTPrevious preliminary verified result was No growth a t 72 hours on 12/14/2020 at 070 1 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 No interval change in [...] stableappearance of intra and extrahepatic biliary ductal dilatation.[facility] GLUCOSE (AUTOMATED)2020-12-15 19:28:00 Test Item Value Reference Range Interpretation Comments POCT GLU (test code = 9287802174) 140 mg/dL 70-110 H Lab Interpretation (test code = Abnormal 98390-4) [facility] 15:26:00 Test Item Value Reference Range Interpretation Comments MAGNESIUM (test code = 5080953867) 2.2 mg/dL 1.7-2.4 Lab Interpretation (test code = Normal 90872-2) [facility] GLUCOSE (AUTOMATED)2020-12-15 15:15:00 Test Item Value Reference Range Interpretation Comments POCT GLU (test code = 8939529605) 181 mg/dL 70-110 H Lab Interpretation (test code = Abnormal 15776-3) [facility] METABOLIC PANEL (NA, K, CL, CO2, GLUCOSE, BUN, CREATININE, CA)2020-12-15 13:07:00 Test Item Value Reference Range Interpretation Comments NA (test code = 136 mmol/L 135-145 4547865833) K (test code = 3.6 mmol/L 3.5-5.0 9842896347) CL (test code = 96 mmol/L 98-108 L 5098605604) CO2 TOTAL (test code = 29 mmol/L 23-31 2365787450) AGAP (test code = 2-16 7161888773) BUN (test code = 12 mg/dL 7-23 1346009933) GLUCOSE (test code = 183 mg/dL 70-110 H 5429352201) CREATININE (test code = 0.70 mg/dL 0.60-1.25 5133589954) CALCIUM (test code = 9.2 mg/dL 8.6-10.6 4654005659) eGFR Calculation mL/min/1.73m2 (Non-) (test code = 5597578260) eGFR Calculation mL/min/1.73m2 () (test code = 5771852672) JAMES (test code = JAMES) Association of [...] tests). Lab Interpretation Abnormal (test code = 56155-9) [facility] WITH [id number] 12:32:00 Test Item Value Reference Range Interpretation Comments WBC (test code = See_Comment H [Automated 7590-2) message] The system which generated this result transmit ronan reference range : 4.20 - 10.70 10*3/?L. The reference range was not used to interpret this result as normal/abnormal . RBC (test code = See_Comment H [Automated 079-8) message] The system which generated this result [...] RDW-SD (test code = 44.4 fL 38.5-51.6 87711-4) RDW-CV (test code = 17.7 % 12.1-15.4 H 788-0) PLT (test code = See_Comment H [Automated 777-3) message] The system which generated this result transmit ronan reference range : 150 - 328 10*3/ ?L. The reference range was not u sed to interpret th is result as normal/abnormal . MPV (test code = 8.1 fL 9.8-13.0 L 40622-2) NRBC/100 WBC (test See_Comment [Automat ed code = 4482090165) message] The system which generated this result transmit ronan reference range : 0.0 - 10.0 /100 WBCs. The reference range was not used to interpret this result as normal/abnormal . NRBC x10^3 (test code <0.01 See_Comment [Auto mated = 7801525701) message] The system which generated this result transmit ronan reference range : 10*3/?L. The reference range was not used to interpret this result as normal/abnormal . GRAN MAT (NEUT) % 74.5 % (test code = 770-8) IMM GRAN % (test code 0.70 % = 0512180404) LYMPH % (test code = 17.4 % 736-9) MONO % (test code = 6.8 % 5905-5) EOS % (test code = 0.2 % 713-8) BASO % (test code = 0.4 % 706-2) GRAN MAT x10^3(ANC) 11.99 10*3/uL 1.99-6.95 H (test code = 9756474855) IMM GRAN x10^3 (test 0.11 10*3/uL 0.00-0.06 H code = 0865473589) LYMPH x10^3 (test code 2.80 10*3/uL 1.09-3.23 = 731-0) MONO x10^3 (test code 1.10 10*3/uL 0.36-1.02 H = 742-7) EOS x10^3 (test code = 0.03 10*3/uL 0.06-0.53 L 711-2) BASO x10^3 (test code 0.06 10*3/uL 0.01-0.09 = 704-7) Lab Interpretation Abnormal (test code = 28852-9) [facility] GLUCOSE (AUTOMATED)2020-12-15 04:16:00 Test Item Value Reference Range Interpretation Comments POCT GLU (test code = 4025030338) 200 mg/dL 70-110 H Lab Interpretation (test code = Abnormal 87393-1) [facility] (THIAMINE), WHOLE [id number] 00:30:00 Test Item Value Reference Range Interpretation Comments Vitamin B1, Whole 136 nmol/L 70-180 INTERPRETI VE INFORMATION: Blood (test code = Vitamin B 1, Whole Blood 31590-5) This assay júnior ures the concentration o f thiamine diphosphate (TD P), the primary active form of vitamin B1. Nick roximately 90 percent of v itamin B1 present in whol e blood is TDP. Thiamine a nd thiamine monoph osphate, which comprise the remaining 10 pe rcent, are not measured. T his test was developed a nd its performance characteristics determined by [facility]. I t has not been cleared or approved by the US Food and Drug Administration. This test was performed i n a CLIA certified labor atory and is intended for clinical purposes.Perfor med By: [facility] [place] [address] [id number] aboratory Director: Namrata Klein MD [facility] GLUCOSE (AUTOMATED)2020-12-14 23:35:00 Test Item Value Reference Range Interpretation Comments POCT GLU (test code = 8698801572) 151 mg/dL 70-110 H Lab Interpretation (test code = Abnormal 82370-1) [facility] GLUCOSE (AUTOMATED)2020-12-14 19:19:00 Test Item Value Reference Range Interpretation Comments POCT GLU (test code = 8269424523) 193 mg/dL 70-110 H Lab Interpretation (test code = Abnormal 07130-6) [facility] GLUCOSE (AUTOMATED)2020-12-14 15:22:00 Test Item Value Reference Range Interpretation Comments POCT GLU (test code = 7564850349) 221 mg/dL 70-110 H Lab Interpretation (test code = Abnormal 36453-2) [facility] GLUCOSE (AUTOMATED)2020-12-14 02:37:00 Test Item Value Reference Range Interpretation Comments POCT GLU (test code = 2839462611) 210 mg/dL 70-110 H Lab Interpretation (test code = Abnormal 46623-3) [facility] GLUCOSE (AUTOMATED)2020-12-13 23:33:00 Test Item Value Reference Range Interpretation Comments POCT GLU (test code = 2576132925) 182 mg/dL 70-110 H Lab Interpretation (test code = Abnormal 43755-3) [facility] GLUCOSE (AUTOMATED)2020-12-13 18:09:00 Test Item Value Reference Range Interpretation Comments POCT GLU (test code = 7298641900) 150 mg/dL 70-110 H Lab Interpretation (test code = Abnormal 25512-4) [facility] METABOLIC PANEL (NA, K, CL, CO2, GLUCOSE, BUN, CREATININE, CA)2020-12-13 16:27:00 Test Item Value Reference Range Interpretation Comments NA (test code = 136 mmol/L 135-145 8570869282) K (test code = 3.7 mmol/L 3.5-5.0 3490024071) CL (test code = 96 mmol/L 98-108 L 5467787740) CO2 TOTAL (test code = 29 mmol/L 23-31 9437170898) AGAP (test code = 2-16 6986244827) BUN (test code = 6 mg/dL 7-23 L 2809627533) GLUCOSE (test code = 212 mg/dL 70-110 H 2304177862) CREATININE (test code = 0.61 mg/dL 0.60-1.25 9554718437) CALCIUM (test code = 9.5 mg/dL 8.6-10.6 5607517089) eGFR Calculation mL/min/1.73m2 (Non-) (test code = 7110532821) eGFR Calculation mL/min/1.73m2 () (test code = 8749375126) JAMES (test code = JAMES) Association of [...] tests). Lab Interpretation Abnormal (test code = 66957-5) [facility] WITH [id number] 16:10:00 Test Item Value Reference Range Interpretation Comments WBC (test code = See_Comment H [Automated 6459-2) message] The sy stem which generated this result transmitted reference range : 4.20 - 10.70 10*3/?L. The reference range was not used to interpret this result as normal/abnormal . RBC (test code = See_Comment H [Automated 979-8) message] The sy stem which [...] RDW-SD (test code = 43.3 fL 38.5-51.6 50492-6) RDW-CV (test code = 16.2 % 12.1-15.4 H 788-0) PLT (test code = See_Comment H [Automated 777-3) message] The sy stem which generated this result transmitted reference range : 150 - 328 10*3/ ?L. The reference r torito was not used to interpret this result as normal/abnormal . MPV (test code = 8.2 fL 9.8-13.0 L 50387-9) NRBC/100 WBC (test See_Comment [Automat ed code = 7622660434) message] The system which generated this result transmitted reference range : 0.0 - 10.0 /100 WBCs. The refer ence range was not u sed to interpret th is result as normal/abnormal . NRBC x10^3 (test code <0.01 See_Comment [Auto mated = 9491314980) message] The s ystem which generated this result transmitted reference range : 10*3/?L. The reference range was not used to interpret this result as normal/abnormal . GRAN MAT (NEUT) % 86.2 % (test code = 770-8) IMM GRAN % (test code 0.70 % = 7508388219) LYMPH % (test code = 10.2 % 736-9) MONO % (test code = 2.5 % 5905-5) EOS % (test code = 0.1 % 713-8) BASO % (test code = 0.3 % 706-2) GRAN MAT x10^3(ANC) 9.61 10*3/uL 1.99-6.95 H (test code = 0537457701) IMM GRAN x10^3 (test 0.08 10*3/uL 0.00-0.06 H code = 6314215002) LYMPH x10^3 (test code 1.14 10*3/uL 1.09-3.23 = 731-0) MONO x10^3 (test code 0.28 10*3/uL 0.36-1.02 L = 742-7) EOS x10^3 (test code = <0.03 0.06-0.53 L 711-2) BASO x10^3 (test code 0.03 10*3/uL 0.01-0.09 = 704-7) Lab Interpretation Abnormal (test code = 73834-8) [facility]13 14:16:00 Test Item Value Reference Range Interpretation Comments POCT GLU (test code = 0357655331) 236 mg/dL 70-110 H Lab Interpretation (test code = Abnormal 03453-2) [facility] COVID [id number] 04:58:00COVID DMT InterpretationInterpretation/Recommendations: Molecular NAAT Tests for [...] COVID-19 testing the patient has had at [facility], including molecular NAAT testing (more commonly known as PCR testing and Rapid ID Now testing) and antibody testing. It does not take into account any testingthat a patient has had outside of the [facility] medical record. [facility] LABORATORY SERVICESCOVID IwdeyjaNBSR-QwH-0 Rapid ID NOW (no units) ? ? Date ? Value ? 12/11/2020 ? Not Detected ? ? ? 11/16/2020 ? Not Detected ? ? ? 08/21/2020 ? Not Detected ? [facility] 2020-12-13 03:11:00 Test Item Value Reference Range Interpretation Comments POCT GLU (test code = 4684813494) 171 mg/dL 70-110 H Lab Interpretation (test code = Abnormal 34738-2) [facility] GLUCOSE (AUTOMATED)2020-12-13 00:00:00 Test Item Value Reference Range Interpretation Comments POCT GLU (test code = 8539517138) 118 mg/dL 70-110 H Lab Interpretation (test code = Abnormal 54407-4) [facility] GLUCOSE (AUTOMATED)2020-12-12 20:29:00 Test Item Value Reference Range Interpretation Comments POCT GLU (test code = 9097532501) 173 mg/dL 70-110 H Lab Interpretation (test code = Abnormal 52281-5) [facility] [id number] 19:56:17 1. ?Hepatic steatosis. However, limited evaluation [...] main portal veinwasevaluated with color Doppler imaging. Case Management Manager images were obtainedfor the record. COMPARISON: Ultrasound [...] where visualized. SPLEEN:No images were obtained. [facility], Radiant Results Inft User - 12/12/2020 1:57 PM CSTEXAM: US ABDOMEN LIMITEDHISTORY: 70 years-old male with RUQ ultrasound to assess for common bileduct dilation .TECHNIQUE: Limited abdominal ultrasound focused on the liver, biliarysystem, pancreas, and spleen was performed. The main portal vein wasevaluated with color Doppler imaging. Case Management Manager images wereobtainedfor the record.COMPARISON: Ultrasound abdomen 11/17/2028. [...] reviewed this study and agree with the abovereport.[facility]2020-12-12 19:24:00 Test Item Value Reference Range Interpretation Comments POCT GLU (test code = 6132661467) 230 mg/dL 70-110 H Lab Interpretation (test code = Abnormal 76023-1) [facility] 1 [id number] 15:16:46 Low lung volumes with mild perihilar [...] reviewed this study and agree with theabove report.[facility]2020-12-12 14:34:00 Test Item Value Reference Range Interpretation Comments POCT GLU (test code = 2245701383) 225 mg/dL 70-110 H Lab Interpretation (test code = Abnormal 97359-8) [facility] [id number] 13:28:00 Test Item Value Reference Range Interpretation Comments URINE CULTURE (test < 10,000 CFU/mL mixed code = 630-4) aerobic organisms - suggests endogenous microbial contamination [facility] (NA, K, CL, CO2, GLUCOSE, BUN, CREATININE, CA)2020-12-12 10:05:00 Test Item Value Reference Range Interpretation Comments NA (test code = 136 mmol/L 135-145 0080545173) K (test code = 3.5 mmol/L 3.5-5.0 6372099593) CL (test code = 100 mmol/L 98-108 9491162770) CO2 TOTAL (test code = 31 mmol/L 23-31 3674469866) AGAP (test code = 2-16 9355950119) BUN (test code = 7 mg/dL 7-23 1699356593) GLUCOSE (test code = 259 mg/dL 70-110 H 2966545057) CREATININE (test code = 0.63 mg/dL 0.60-1.25 6500508912) CALCIUM (test code = 8.5 mg/dL 8.6-10.6 L 3867215402) eGFR Calculation mL/min/1.73m2 (Non-) (test code = 8259459358) eGFR Calculation mL/min/1.73m2 () (test code = 8451731266) JAMES (test code = JAMES) Association of [...] tests). Lab Interpretation Abnormal (test code = 06347-4) [facility] HeightsMagnesium [id number] 10:05:00 Test Item Value Reference Range Interpretation Comments MAGNESIUM (test code = 1545735602) 1.9 mg/dL 1.7-2.4 Lab Interpretation (test code = Normal 87123-9) [facility] with [id number] 09:48:00 Test Item Value Reference Range Interpretation Comments WBC (test code = See_Comment [Automated 1941-2) message] The sy stem which generated this result transmitted reference range : 4.20 - 10.70 10*3/?L. The reference range was not used to interpret this result as normal/abnormal . RBC (test code = See_Comment [Automated 706-9) message] The sy stem which generated this [...] RDW-SD (test code = 46.0 fL 38.5-51.6 21843-0) RDW-CV (test code = 16.1 % 12.1-15.4 H 788-0) PLT (test code = See_Comment H [Automated 777-3) message] The sy stem which generated this result transmitted reference range : 150 - 328 10*3/ ?L. The reference r torito was not used to interpret this result as normal/abnormal . MPV (test code = 8.6 fL 9.8-13.0 L 05189-8) NRBC/100 WBC (test See_Comment [Automat ed code = 6350952078) message] The system which generated this result transmitted reference range : 0.0 - 10.0 /100 WBCs. The refer ence range was not u sed to interpret th is result as normal/abnormal . NRBC x10^3 (test code <0.01 See_Comment [Auto mated = 1510957972) message] The s ystem which generated this result transmitted reference range : 10*3/?L. The reference range was not used to interpret this result as normal/abnormal . GRAN MAT (NEUT) % 70.2 % (test code = 770-8) IMM GRAN % (test code 0.30 % = 9090841641) LYMPH % (test code = 18.8 % 736-9) MONO % (test code = 5.0 % 5905-5) EOS % (test code = 5.2 % 713-8) BASO % (test code = 0.5 % 706-2) GRAN MAT x10^3(ANC) 6.05 10*3/uL 1.99-6.95 (test code = 1124583603) IMM GRAN x10^3 (test 0.03 10*3/uL 0.00-0.06 code = 1611729119) LYMPH x10^3 (test code 1.62 10*3/uL 1.09-3.23 = 731-0) MONO x10^3 (test code 0.43 10*3/uL 0.36-1.02 = 742-7) EOS x10^3 (test code = 0.45 10*3/uL 0.06-0.53 711-2) BASO x10^3 (test code 0.04 10*3/uL 0.01-0.09 = 704-7) Lab Interpretation Abnormal (test code = 46115-2) [facility] GLUCOSE (AUTOMATED)2020-12-12 03:42:00 Test Item Value Reference Range Interpretation Comments POCT GLU (test code = 196 mg/dL 70-110 H Notifi ed Provider 8720415028) Lab Interpretation (test Abnormal code = 70719-2) [facility] 02:24:00 Test Item Value Reference Range Interpretation Comments FOLATE SER (test code = 7285795202) 5.8 ng/mL 3.0-20.0 Lab Interpretation (test code = Normal 10505-7) [facility]IT[facility] B12, [id number] 00:55:00 Test Item Value Reference Range Interpretation Comments VIT B12 (test code = 844 pg/mL 240-930 1624701616) JAMES (test code = JAMES) Biotin has been reported to cause a positive bias, interpret results relative to patient's use of biotin. Lab Interpretation (test Normal code = 04451-0) [facility] GLUCOSE (AUTOMATED)2020-12-12 00:14:00 Test Item Value Reference Range Interpretation Comments POCT GLU (test code = 6746730434) 164 mg/dL 70-110 H Lab Interpretation (test code = Abnormal 20322-5) [facility]CREATINE [id number] 23:42:00 Test Item Value Reference Range Interpretation Comments CK (test code = 8342152462) <20 33-194 L Lab Interpretation (test code = Abnormal 09441-2) [facility] STIMULATING [id number] 23:17:00 Test Item Value Reference Range Interpretation Comments TSH (test code = See_Comment Biotin has been [id number]) reported to cau se a negative bias, interpret resul ts relative to johnny bills's use of biotin. [Automated mess age] The system Hachimen[employer]ppi generated this result transmitted ref erence range: 0.45 - 4 .70 mIU/L. The refe rence range was not u sed to interpret this result as normal/abnor mal. Lab Interpretation (test Normal code = 85303-2) [facility] H[facility] 3 VW [id number] 21:41:53No appreciable fracture lines. RL: 6200 ICAL [...] erosions.IMPRESSIONNo appreciable fracture lines.RL: 6200 [facility] 20:00:00 Test Item Value Reference Range Interpretation Comments Procalcitonin (test 0.13 ng/mL <0.07 H code = 6477443411) JAEMS (test code = JAMES) INTERPRETATION OF PROCALCITONIN [...] biotics/default.asp Lab Interpretation Abnormal (test code = 73415-7) [facility]2020-12-11 19:07:00 Test Item Value Reference Range Interpretation Comments POCT GLU (test code = 9156149735) 274 mg/dL 70-110 H Lab Interpretation (test code = Abnormal 68957-0) [facility]UM2021-03-01 18:31:00 Test Item Value Reference Range Interpretation Comments MAGNESIUM (test code = 9046910245) 1.9 mg/dL 1.7-2.4 Lab Interpretation (test code = Normal 06041-9) [facility] HeightsFERRITIN [id number] 18:31:00 Test Item Value Reference Range Interpretation Comments FERRITIN (test code = 178.0 ng/mL 18.0-464.0 4642914762) JAMES (test code = JAMES) Biotin has been reported to cause a negative bias, interpret results relative to patient's use of biotin. Lab Interpretation (test Normal code = 99817-2) [facility] HEAD WO [id number] 14:36:47 No acute intracranial abnormality. Dilated ventricles [...] reviewed this study and agree with the abovereport.[facility]INALYSIS2021-[facility] 14:28:00 Test Item Value Reference Range Interpretation Comments APPEARANCE (test code = Clear Clear 0189049147) COLOR (test code = Yellow Yellow 0616657045) PH (test code = 4.8-8.0 2258433336) SP GRAVITY (test code = 1.003-1.030 0989803316) GLU U QUAL (test code = 500 mg/dL Normal A 0436123141) BLOOD (test code = Negative Negative 0929820737) KETONES (test code = 5 mg/dL Negative A 0818893513) PROTEIN (test code = Negative Negative 2887-8) UROBILIN (test code = Normal Normal 5928846766) BILIRUBIN (test code = Negative Negative 6568962219) NITRITE (test code = Negative Negative 9425854504) LEUK RYAN (test code = Negative Negative 2707327703) RBC/HPF (test code = See_Comment [Autom ated message] 2771018339) The system Hachimenroppi generated this result transmit ronan reference range : 0 - 3 HPF. The refe rence range was not u sed to interpret th is result as normal/abnormal . WBC/HPF (test code = See_Comment [Autom ated message] 9921420898) The system [employer] generated this result transmit ronan reference range : 0 - 5 HPF. The refe rence range was not u sed to interpret th is result as normal/abnormal . BACTERIA (test code = Negative Negative 5157594266) MUCOUS (test code = Slight Negative LPF A 9670858445) SQ EPITH (test code = HPF 1804030594) Lab Interpretation (test Abnormal code = 52413-7) [facility] (ID NOW RAPID TESTING)2020-12-11 13:10:00 Test Item Value Reference Range Interpretation Comments SARS-CoV-2 Rapid ID NOW Not Detected Not Detected (test code = 62601-2) JAMES (test code = JAMES) ID NOW COVID-19 Assay is an isothermal nucleic acid amplification test intended for the qualitative detection of nucleic acid from SARS-CoV-2 viral RNA in nasopharyngeal (VP PLATFORMS) specimens. It is used under Emergency Use [...] indicated. Lab Interpretation Normal (test code = 95678-1) [facility]. METABOLIC PANEL (64825)2020-12-11 12:29:00 Test Item Value Reference Range Interpretation Comments NA (test code = 136 mmol/L 135-145 1053148444) K (test code = 3.5 mmol/L 3.5-5.0 1125545410) CL (test code = 95 mmol/L 98-108 L 9593132409) CO2 TOTAL (test code = 35 mmol/L 23-31 H 7574362968) AGAP (test code = 2-16 4692818723) BUN (test code = 9 mg/dL 7-23 8771405616) GLUCOSE (test code = 329 mg/dL 70-110 H 0406257187) CREATININE (test code = 0.72 mg/dL 0.60-1.25 0242164698) TOTAL BILI (test code = 0.6 mg/dL 0.1-1.1 2341452359) CALCIUM (test code = 9.0 mg/dL 8.6-10.6 3776133940) T PROTEIN (test code = 6.8 g/dL 6.3-8.2 6419300511) ALBUMIN (test code = 3.8 g/dL 3.5-5.0 2586459659) ALK PHOS (test code = 288 U/L 34-122 H 0450089288) ALTv (test code = 46 U/L 5-50 1742-6) AST(SGOT) (test code = 38 U/L 13-40 4417064734) eGFR Calculation mL/min/1.73m2 (Non-) (test code = 8399022887) eGFR Calculation mL/min/1.73m2 () (test code = 4620090527) JAMES (test code = JAMES) Association of [...] tests). Lab Interpretation Abnormal (test code = 84786-9) [facility] HeightsL[facility] Acid Whole [id number] 12:23:00 Test Item Value Reference Range Interpretation Comments LACTIC ACID (test code = 2.09 mmol/L 0.50-2.20 9865821017) Lab Interpretation (test code = Normal 37774-8) [facility] WITH [id number] 12:17:00 Test Item Value Reference Range Interpretation [...] RDW-SD (test code = 44.9 fL 38.5-51.6 47263-3) RDW-CV (test code = 15.9 % 12.1-15.4 H 788-0) PLT (test code = See_Comment H [Automated 777-3) message] The sy stem which generated this result transmitted reference range : 150 - 328 10*3/ ?L. The reference r torito was not used to interpret this result as normal/abnormal . MPV (test code = 8.3 fL 9.8-13.0 L 03417-4) NRBC/100 WBC (test See_Comment [Automat ed code = 8629996800) message] The system which generated this result transmitted reference range : 0.0 - 10.0 /100 WBCs. The refer ence range was not u sed to interpret th is result as normal/abnormal . NRBC x10^3 (test code <0.01 See_Comment [Auto mated = 2119324730) message] The s ystem which generated this result transmitted reference range : 10*3/?L. The reference range was not used to interpret this result as normal/abnormal . GRAN MAT (NEUT) % 77.9 % (test code = 770-8) IMM GRAN % (test code 0.50 % = 1961713224) LYMPH % (test code = 12.2 % 736-9) MONO % (test code = 5.2 % 5905-5) EOS % (test code = 3.7 % 713-8) BASO % (test code = 0.5 % 706-2) GRAN MAT x10^3(ANC) 9.57 10*3/uL 1.99-6.95 H (test code = 0188928294) IMM GRAN x10^3 (test 0.06 10*3/uL 0.00-0.06 code = 9331503390) LYMPH x10^3 (test code 1.50 10*3/uL 1.09-3.23 = 731-0) MONO x10^3 (test code 0.64 10*3/uL 0.36-1.02 = 742-7) EOS x10^3 (test code = 0.46 10*3/uL 0.06-0.53 711-2) BASO x10^3 (test code 0.06 10*3/uL 0.01-0.09 = 704-7) Lab Interpretation Abnormal (test code = 50826-6) [facility] ONLY COVID [id number] 18:43:00COVID DMT InterpretationInterpretation/Recommendations: Molecular NAAT Test Results [...] a nasopharyngeal sample, there is approximately a zga-lg-srbvk chance that the patient was infected and [...] aggregate data pooled from the [facility] medical recordincluding both current and prior COVID-19 related testing results for the following tests offered [facility] institution:A. Tests for the Identification of SARS-CoV-2 RNA:SARS-CoV-2 PCR assays including Surprise Aptima, Surprise Fusion, Barrett RealTime, and [employer] Xpert Xpress. SARS-CoV-2 Rapid ID NOW by the ID NOW assay. ? B. Tests for the Identification of SARS-CoV-2 Antibodies: Chemiluminescent immunoassays including Access SARS-CoV-2 IgM (DXI 600), SoNetJobS Kjjf-BSTL-EyG-2 IgG (Vitros 5600 and Vitros 3600), and Barrtet SARS-CoV-2 IgG (BOILER ROOM HELPER I System). These interpretation comments assume that only the above testing was utilized and that the approved acceptable specimen type(s) were used for a given test. These interpretations are autopopulated into [employer]ue[employer] based on computerized algorithms matching an interpretation code number to the patient's set of test results. While a clinical pathologist evaluates the combinations for clinical accuracy, clinical correlation is recommended as it may not take into account very remote prior testing. Furthermore, it does not consider testing a patient may have had outside of the [facility] system. Additionally, it should be noted that the computerized algorithm treats the results for PCR testing and Rapid ID NOW testing (also PCR) synonymously, and thus, refers to both testing methodologies as PCR tests. Given that the sensitivity of [facility]'s Rapid ID NOW testing platform is [...] pathogen panel may be beneficialin this setting. [facility] LABORATORY SERVICESCOVID BlztanjSWWB-HyB-9 Rapid ID NOW (no units) ? ? Date ? Value ? 08/21/2020 ? Not Detected ? [facility]Un[facility]2020-08-23 18:25:00 Test Item Value Reference Range Interpretation Comments POCT GLU (test code = 5851169193) 297 mg/dL 70-110 H Lab Interpretation (test code = Abnormal 87985-4) [facility] GLUCOSE (AUTOMATED)2020-08-23 14:25:00 Test Item Value Reference Range Interpretation Comments POCT GLU (test code = 5795519246) 181 mg/dL 70-110 H Lab Interpretation (test code = Abnormal 11127-3) [facility] Metabolic Panel (NA, K, CL, CO2, GLUCOSE, BUN, CREATININE, CA)2020-08-23 11:45:00 Test Item Value Reference Range Interpretation Comments NA (test code = 132 mmol/L 135-145 L 2752363376) K (test code = 4.0 mmol/L 3.5-5 1112121118) CL (test code = 96 mmol/L 98-108 L 8587199452) CO2 TOTAL (test code = 33 mmol/L 23-31 H 3031533792) AGAP (test code = 2-16 5822457669) BUN (test code = 9 mg/dL 7-23 6186070560) GLUCOSE (test code = 176 mg/dL 70-110 H 6174121915) CREATININE (test code = 0.66 mg/dL 0.6-1.25 4757650317) CALCIUM (test code = 8.5 mg/dL 8.6-10.6 L 2712861911) eGFR Calculation mL/min/1.73m2 (Non-) (test code = 3958975760) eGFR Calculation mL/min/1.73m2 () (test code = 6380727527) JAMES (test code = JAMES) Association of [...] tests). Lab Interpretation Abnormal (test code = 76626-3) [facility] HeightsMagnesium [id number] 11:45:00 Test Item Value Reference Range Interpretation Comments MAGNESIUM (test code = 3037935392) 2.0 mg/dL 1.7-2.4 Lab Interpretation (test code = Normal 63707-5) [facility]CB with [id number] 11:38:00 Test Item Value Reference Range Interpretation [...] RDW-SD (test code = 41.8 fL 38.5-51.6 36641-3) RDW-CV (test code = 14.3 % 12.1-15.4 788-0) PLT (test code = See_Comment H [Automated 777-3) message] The sy stem which generated this result transmitted reference range : 150 - 328 10*3/ ?L. The reference r torito was not used to interpret this result as normal/abnormal . MPV (test code = 8.0 fL 9.8-13 L 17842-6) NRBC/100 WBC (test See_Comment [Automat ed code = 5968276743) message] The system which generated this result transmitted reference range : 0.0 - 10.0 /100 WBCs. The refer ence range was not u sed to interpret th is result as normal/abnormal . NRBC x10^3 (test code <0.01 See_Comment [Auto mated = 8725041354) message] The s ystem which generated this result transmitted reference range : 10*3/?L. The reference range was not used to interpret this result as normal/abnormal . GRAN MAT (NEUT) % 61.5 % (test code = 770-8) IMM GRAN % (test code 2.00 % = 3645433202) LYMPH % (test code = 25.5 % 736-9) MONO % (test code = 6.3 % 5905-5) EOS % (test code = 3.7 % 713-8) BASO % (test code = 1.0 % 706-2) GRAN MAT x10^3(ANC) 5.29 10*3/uL 1.99-6.95 (test code = 6390534048) IMM GRAN x10^3 (test 0.17 10*3/uL 0-0.06 H code = 4401718890) LYMPH x10^3 (test code 2.19 10*3/uL 1.09-3.23 = 731-0) MONO x10^3 (test code 0.54 10*3/uL 0.36-1.02 = 742-7) EOS x10^3 (test code = 0.32 10*3/uL 0.06-0.53 711-2) BASO x10^3 (test code 0.09 10*3/uL 0.01-0.09 = 704-7) Lab Interpretation Abnormal (test code = 57270-2) [facility] GLUCOSE (AUTOMATED)2020-08-23 10:22:00 Test Item Value Reference Range Interpretation Comments POCT GLU (test code = 2115033118) 164 mg/dL 70-110 H Lab Interpretation (test code = Abnormal 94299-8) [facility] GLUCOSE (AUTOMATED)2020-08-23 05:56:00 Test Item Value Reference Range Interpretation Comments POCT GLU (test code = 3629685826) 242 mg/dL 70-110 H Lab Interpretation (test code = Abnormal 58901-0) [facility] GLUCOSE (AUTOMATED)2020-08-23 03:02:00 Test Item Value Reference Range Interpretation Comments POCT GLU (test code = 0102309305) 210 mg/dL 70-110 H Lab Interpretation (test code = Abnormal 20627-5) [facility] GLUCOSE (AUTOMATED)2020-08-22 23:40:00 Test Item Value Reference Range Interpretation Comments POCT GLU (test code = 4221248759) 267 mg/dL 70-110 H Lab Interpretation (test code = Abnormal 97357-7) [facility] GLUCOSE (AUTOMATED)2020-08-22 19:08:00 Test Item Value Reference Range Interpretation Comments POCT GLU (test code = 2940663891) 191 mg/dL 70-110 H Lab Interpretation (test code = Abnormal 51210-8) [facility] GLUCOSE (AUTOMATED)2020-08-22 13:50:00 Test Item Value Reference Range Interpretation Comments POCT GLU (test code = 9745338189) 174 mg/dL 70-110 H Lab Interpretation (test code = Abnormal 21294-9) [facility]URINE [id number] 12:59:00 Test Item Value Reference Range Interpretation Comments URINE CULTURE (test No aerobic growth (< code = 630-4) 1000 CFU/mL) [facility]CBC with [id number] 11:28:00 Test Item Value Reference Range Interpretation Comments WBC (test code = See_Comment [Automated 7290-2) message] The sy stem which generated this result transmitted reference range : 4.20 - 10.70 10*3/?L. The reference range was not used to interpret this result as normal/abnormal . RBC (test code = See_Comment L [Automated 609-8) message] The sy stem which [...] RDW-SD (test code = 42.5 fL 38.5-51.6 58688-1) RDW-CV (test code = 14.5 % 12.1-15.4 788-0) PLT (test code = See_Comment H [Automated 777-3) message] The sy stem which generated this result transmitted reference range : 150 - 328 10*3/ ?L. The reference r torito was not used to interpret this result as normal/abnormal . MPV (test code = 8.0 fL 9.8-13 L 94798-0) NRBC/100 WBC (test See_Comment [Automat ed code = 0488554733) message] The system which generated this result transmitted reference range : 0.0 - 10.0 /100 WBCs. The refer ence range was not u sed to interpret th is result as normal/abnormal . NRBC x10^3 (test code <0.01 See_Comment [Auto mated = 9644284423) message] The s ystem which generated this result transmitted reference range : 10*3/?L. The reference range was not used to interpret this result as normal/abnormal . GRAN MAT (NEUT) % 69.1 % (test code = 770-8) IMM GRAN % (test code 2.20 % = 7295109481) LYMPH % (test code = 20.9 % 736-9) MONO % (test code = 5.8 % 5905-5) EOS % (test code = 1.0 % 713-8) BASO % (test code = 1.0 % 706-2) GRAN MAT x10^3(ANC) 6.51 10*3/uL 1.99-6.95 (test code = 6739678890) IMM GRAN x10^3 (test 0.21 10*3/uL 0-0.06 H code = 1119867648) LYMPH x10^3 (test code 1.97 10*3/uL 1.09-3.23 = 731-0) MONO x10^3 (test code 0.55 10*3/uL 0.36-1.02 = 742-7) EOS x10^3 (test code = 0.09 10*3/uL 0.06-0.53 711-2) BASO x10^3 (test code 0.09 10*3/uL 0.01-0.09 = 704-7) BASO STIPPLING (test Present A code = 703-9) BANDS (test code = Increased A 9573903343) TOXIC CHANGES (test Present A code = 803-7) Lab Interpretation Abnormal (test code = 29428-4) [facility] Metabolic Panel (NA, K, CL, CO2, GLUCOSE, BUN, CREATININE, CA)2020-08-22 11:12:00 Test Item Value Reference Range Interpretation Comments NA (test code = 135 mmol/L 135-145 5695507235) K (test code = 3.6 mmol/L 3.5-5 9980770536) CL (test code = 99 mmol/L 98-108 3915405276) CO2 TOTAL (test code = 31 mmol/L 23-31 2743444808) AGAP (test code = 2-16 1076336878) BUN (test code = 9 mg/dL 7-23 6304118718) GLUCOSE (test code = 198 mg/dL 70-110 H 7353970616) CREATININE (test code = 0.72 mg/dL 0.6-1.25 4737701151) CALCIUM (test code = 8.3 mg/dL 8.6-10.6 L 1415192284) eGFR Calculation mL/min/1.73m2 (Non-) (test code = 2144954470) eGFR Calculation mL/min/1.73m2 () (test code = 6947363390) JAMES (test code = JAMES) Association of [...] tests). Lab Interpretation Abnormal (test code = 97338-9) [facility] HeightsMagn[facility] [id number] 11:12:00 Test Item Value Reference Range Interpretation Comments MAGNESIUM (test code = 1778146502) 2.0 mg/dL 1.7-2.4 Lab Interpretation (test code = Normal 48937-3) [facility] Heights[facility]id [facility] (Total Cholesterol, Triglycerides, HDL) - [id number] 11:12:00 Test Item Value Reference Range Interpretation Comments CHOL (test code = 155 mg/dL 120-200 3298516380) HDL (test code = 42 mg/dL >40 4211021803) HDLC RATIO (test code = See_Comment [Au tomated message] 1922984754) The system [employer] generated this result transmit ronan reference range : <=5.0. The refe rence range was not u sed to interpret th is result as normal/abnormal . TRIG (test code = 186 mg/dL 30-170 H 4256118681) LDL CHOL (test code = 76 mg/dL See_Comment [Auto mated message] 72508-9) The system [employer] generated this result transmit ronan reference range : <=160. The refe rence range was not u sed to interpret th is result as normal/abnormal . VLDL (test code = 37 mg/dL 5-60 1096530634) Lab Interpretation (test Abnormal code = 85323-5) [facility] HeightsHEPAT[facility] FUNCTION PANEL (01298) (ALB,T.PRO,BILI T,BU/BC,ALT,AST,ALK PHOS)2020-08-22 11:12:00 Test Item Value Reference Range Interpretation Comments TOTAL BILI (test code = 5968187085) 0.6 mg/dL 0.1-1.1 BILI UNCON (test code = 3563639305) 0.2 mg/dL 0.1-1.1 BILI CONJ (test code = 3837711934) 0.0 mg/dL 0-0.3 T PROTEIN (test code = 0961538526) 6.0 g/dL 6.3-8.2 L ALBUMIN (test code = 4262475020) 2.8 g/dL 3.5-5 L ALK PHOS (test code = 4334506609) 222 U/L 34-122 H ALTv (test code = 1742-6) 27 U/L 5-50 AST(SGOT) (test code = 4971510531) 30 U/L 13-40 Lab Interpretation (test code = Abnormal 92381-3) [facility] GLUCOSE (AUTOMATED)2020-08-22 10:11:00 Test Item Value Reference Range Interpretation Comments POCT GLU (test code = 4720527713) 196 mg/dL 70-110 H Lab Interpretation (test code = Abnormal 42883-4) [facility] GLUCOSE (AUTOMATED)2020-08-22 07:15:00 Test Item Value Reference Range Interpretation Comments POCT GLU (test code = 1291065937) 183 mg/dL 70-110 H Lab Interpretation (test code = Abnormal 15811-7) [facility] GLUCOSE (AUTOMATED)2020-08-22 02:30:00 Test Item Value Reference Range Interpretation Comments POCT GLU (test code = 2829633326) 295 mg/dL 70-110 H Lab Interpretation (test code = Abnormal 94051-5) [facility] GLUCOSE (AUTOMATED)2020-08-21 23:46:00 Test Item Value Reference Range Interpretation Comments POCT GLU (test code = 8349162158) 258 mg/dL 70-110 H Lab Interpretation (test code = Abnormal 01674-3) [facility] HeightsC-REACTIVE [id number] 18:50:00 Test Item Value Reference Range Interpretation Comments CRP (test code = 2685032332) 15.5 mg/dL <0.8 H Lab Interpretation (test code = Abnormal 40399-3) [facility]2020-08-21 18:21:00 Test Item Value Reference Range Interpretation Comments POCT GLU (test code = 8024955866) 297 mg/dL 70-110 H Lab Interpretation (test code = Abnormal 87695-2) [facility] HeightsETHANOL2020-11-09 16:24:00 Test Item Value Reference Range Interpretation Comments ALCOHOL (test code = <10 mg/dL 9253370878) JAMES (test code = Toxic Greater than or JAMES) equal to 80 mg/dL. NOTE: Whole blood values are approximately 10% to 15% lower than serum and plasma. [facility] ONLY - URINE DRUG (IMMUNOASSAY) - 4 ER [id number] 15:36:00 Test Item Value Reference Range Interpretation Comments AMPHET (test code = Negative Negative 6391550145) Cocaine Metabolite (test Negative Negative code = 3623060186) OPIATES (test code = Presumptive Positive Negative A 4698810247) THC (test code = Negative Negative 7186380842) JAMES (test code = JAMES) Urine Drug Cutoff Ranges Amphetamine: ? 1,000 ng/mLCocaine: ? 150 ng/mLOpiates: ? 300 ng/mLCannabinoids: ?50 ng/mL The results are to be used only for medical (i.e., treatment) purposes. Unconfirmed screening results must not be used for non-medical purposes (e.g., employment testing, legal testing). Lab Interpretation (test Abnormal code = 23851-6) [facility] ONLY - SYPHILIS [id number] 15:04:00 Test Item Value Reference Range Interpretation Comments Syphilis IgG/IgM (test Non-reactive Non-reactive code = 17833-4) JAMES (test code = JAMES) Non-reactive - No serologic evidence of T. pallidum infection. Cannot exclude incubating or early syphilis. Submit a second specimen in 2-4 weeks if syphilis is clinically suspected. Equivocal - Further testing to follow. Reactive - Further testing to follow. Lab Interpretation (test Normal code = 09605-2) [facility] HeightsUrinalysis2020-11-09 14:52:00 Test Item Value Reference Range Interpretation Comments APPEARANCE (test code = Clear Clear 0055423856) COLOR (test code = Yellow Yellow 3027495886) PH (test code = 4.8-8.0 0364763923) SP GRAVITY (test code = 1.003-1.030 4788088054) GLU U QUAL (test code = 500 mg/dL Normal A 1534789138) BLOOD (test code = Negative Negative 1240308951) KETONES (test code = 20 mg/dL Negative A 5094806586) PROTEIN (test code = Negative Negative 2887-8) UROBILIN (test code = Normal Normal 7797153786) BILIRUBIN (test code = Negative Negative 2223387690) NITRITE (test code = Negative Negative 2828040118) LEUK RYAN (test code = Negative Negative 7119793213) RBC/HPF (test code = <1 See_Comment [Autom ated message] 8575510060) The system [employer] generated this result transmit ronan reference range : 0 - 3 HPF. The refe rence range was not u sed to interpret th is result as normal/abnormal . WBC/HPF (test code = See_Comment [Autom ated message] 4864479467) The system [employer] generated this result transmit ronan reference range : 0 - 5 HPF. The refe rence range was not u sed to interpret th is result as normal/abnormal . BACTERIA (test code = Negative Negative 4090135565) MUCOUS (test code = Slight Negative LPF A 4541768621) Lab Interpretation (test Abnormal code = 45712-0) [facility] HeightsACTIVATED PARTIAL THRMPLAS [id number] 13:45:00 Test Item Value Reference Range Interpretation Comments APTT Patient (test code = See_Comment [ Automated message] 3173-2) The system [employer] generated this result transmitted ref erence range: 26 - 36 Seconds. The re ference range was not u sed to interpret this result as normal/abnor mal. Lab Interpretation (test Normal code = 59556-1) [facility]2020-08-21 13:45:00 Test Item Value Reference Range Interpretation Comments POCT GLU (test code = 7202405277) 246 mg/dL 70-110 H Lab Interpretation (test code = Abnormal 90295-4) [facility]HIV [facility]/2 AG-AB WITH [id number] 12:32:00 Test Item Value Reference Range Interpretation Comments HIV Negative Negative Semi-quantitative (test code = 87435-6) JAMES (test code = Non-reactive for HIV-1 JAMES) antigen and HIV-1/HIV-2 antibodies. ?No laboratory evidence of HIV infection. ?Repeat in 2-4 weeks if acute HIV infection is suspected. [facility] WITH [id number] 12:18:00 Test Item Value Reference Range Interpretation [...] RDW-SD (test code = 44.4 fL 38.5-51.6 51532-6) RDW-CV (test code = 14.5 % 12.1-15.4 788-0) PLT (test code = See_Comment H [Automated 777-3) message] The sy stem which generated this result transmitted reference range : 150 - 328 10*3/ ?L. The reference r torito was not used to interpret this result as normal/abnormal . MPV (test code = 8.5 fL 9.8-13 L 37131-7) NRBC/100 WBC (test See_Comment [Automat ed code = 6062429236) message] The system which generated this result transmitted reference range : 0.0 - 10.0 /100 WBCs. The refer ence range was not u sed to interpret th is result as normal/abnormal . NRBC x10^3 (test code <0.01 See_Comment [Auto mated = 0148235666) message] The s ystem which generated this result transmitted reference range : 10*3/?L. The reference range was not used to interpret this result as normal/abnormal . GRAN MAT (NEUT) % 90.4 % (test code = 770-8) IMM GRAN % (test code 1.30 % = 3308721323) LYMPH % (test code = 7.1 % 736-9) MONO % (test code = 0.5 % 5905-5) EOS % (test code = 0.1 % 713-8) BASO % (test code = 0.6 % 706-2) GRAN MAT x10^3(ANC) 7.74 10*3/uL 1.99-6.95 H (test code = 8175833167) IMM GRAN x10^3 (test 0.11 10*3/uL 0-0.06 H code = 4945563655) LYMPH x10^3 (test code 0.61 10*3/uL 1.09-3.23 L = 731-0) MONO x10^3 (test code 0.04 10*3/uL 0.36-1.02 L = 742-7) EOS x10^3 (test code = <0.03 0.06-0.53 L 711-2) BASO x10^3 (test code 0.05 10*3/uL 0.01-0.09 = 704-7) POLYCHROMASIA (test 2+ See_Comment [Automa ronan code = 36781-7) message] The system which generated this result transmitted reference range : 2+. The referen ce range was not u sed to interpret th is result as normal/abnormal . BANDS (test code = Increased A 3187803442) Lab Interpretation Abnormal (test code = 47865-2) [facility] 11:[facility]:00 Test Item Value Reference Range Interpretation Comments Procalcitonin (test 0.36 ng/mL <0.07 H code = 5949749396) JAMES (test code = JAMES) INTERPRETATION OF [...] biotics/default.asp Lab Interpretation Abnormal (test code = 25549-1) [facility]LAFL[facility] [id number] 10:53:00 Test Item Value Reference Range Interpretation Comments LDH (test code = 9596289854) 351 U/L 300-600 Lab Interpretation (test code = Normal 24227-8) [facility]SEDIMENTATION [id number] 10:07:00 Test Item Value Reference Range Interpretation Comments ESR (test code = See_Comment H [Automated message] 9011579450) The system [employer] generated this result transmitted ref erence range: 0 - 10 m m/HR. The reference r torito was not used to interpret this result as normal/abnor mal. Lab Interpretation (test Abnormal code = 36153-9) [facility] GLUCOSE (AUTOMATED)2020-08-21 09:45:00 Test Item Value Reference Range Interpretation Comments POCT GLU (test code = 9041036551) 287 mg/dL 70-110 H Lab Interpretation (test code = Abnormal 24456-4) [facility]cosylated Hemoglobin (A1C)2020-08-21 09:29:00 Test Item Value Reference Range Interpretation Comments HGB A1C (test code = 4548-4) 9.8 % 4-6 H Lab Interpretation (test code = Abnormal 73280-5) [facility] (ID NOW RAPID TESTING)2020-08-21 09:13:00 Test Item Value Reference Range Interpretation Comments SARS-CoV-2 Rapid ID NOW Not Detected Not Detected (test code = 59074-2) JAMES (test code = JAMES) ID NOW COVID-19 Assay is an isothermal nucleic acid amplification test intended for the qualitative detection of nucleic acid from SARS-CoV-2 viral RNA in nasopharyngeal (VP PLATFORMS) specimens. It is used under Emergency Use [...] indicated. Lab Interpretation Normal (test code = 40738-3) [facility]Proth[facility] Time / [id number] 08:59:00 Test Item Value Reference Range Interpretation Comments PROTIME PATIENT (test See_Comment H [Auto mated message] code = 5964-2) The system [employer] generated this result transmitted ref erence range: 10.1 - 1 2.6 Seconds. The reference range was not used to int erpret this result as normal/abnormal . INR (test code = 6301-6) Nor mal INR <1.1; Warfarin Therap eutic range 2.0 to 3. 0 or 2.5 to 3.5, dep ending upon the indica tions. Lab Interpretation (test Abnormal code = 11169-8) [facility]aPTT2020-11-09 08:59:00 Test Item Value Reference Range Interpretation Comments APTT Patient (test code = See_Comment [ Automated message] 3173-2) The system [employer] generated this result transmitted ref erence range: 26 - 36 Seconds. The re ference range was not u sed to interpret this result as normal/abnor mal. Lab Interpretation (test Normal code = 50862-3) [facility] METABOLIC PANEL (NA, K, CL, CO2, GLUCOSE, BUN, CREATININE, CA)2020-08-21 08:52:00 Test Item Value Reference Range Interpretation Comments NA (test code = 136 mmol/L 135-145 9913281163) K (test code = 4.3 mmol/L 3.5-5 5335715860) CL (test code = 104 mmol/L 98-108 2370447124) CO2 TOTAL (test code = 24 mmol/L 23-31 7890661368) AGAP (test code = 2-16 6128576208) BUN (test code = 8 mg/dL 7-23 9822292977) GLUCOSE (test code = 308 mg/dL 70-110 H 2227501174) CREATININE (test code = 0.72 mg/dL 0.6-1.25 5753950141) CALCIUM (test code = 7.8 mg/dL 8.6-10.6 L 3669658348) eGFR Calculation mL/min/1.73m2 (Non-) (test code = 1932721315) eGFR Calculation mL/min/1.73m2 () (test code = 2100580996) JAMES (test code = JAMES) Association of [...] tests). Lab Interpretation Abnormal (test code = 94390-6) [facility]HEPAT[facility] FUNCTION PANEL (16714) (ALB,T.PRO,BILI T,BU/BC,ALT,AST,ALK PHOS)2020-08-21 08:52:00 Test Item Value Reference Range Interpretation Comments TOTAL BILI (test code = 0931987718) 0.8 mg/dL 0.1-1.1 BILI UNCON (test code = 0482812385) 0.3 mg/dL 0.1-1.1 BILI CONJ (test code = 8970737290) 0.0 mg/dL 0-0.3 T PROTEIN (test code = 2558693336) 5.7 g/dL 6.3-8.2 L ALBUMIN (test code = 9484805510) 2.7 g/dL 3.5-5 L ALK PHOS (test code = 4438357738) 245 U/L 34-122 H ALTv (test code = 1742-6) 37 U/L 5-50 AST(SGOT) (test code = 8629200618) 43 U/L 13-40 H Lab Interpretation (test code = Abnormal 37036-3) [facility]
[2022-06-17] MEDS ORDERED: ONDANSETRON 4 MG (ODT) TAB ONE (17:22)
--- NOTE | 2022-06-17 17:39 | RAD REPORT ---
EXAM DESCRIPTION: RAD - Ankle Left 2 View - 06/17/2022 4:06 pm CLINICAL HISTORY: PAIN COMPARISON: None FINDINGS/IMPRESSION: No acute fracture. No malalignment. Osteopenia. Subtalar and midfoot degenerati ve changes. Calcaneal spurring.
--- NOTE | 2022-06-17 17:45 | ER ---
Nurse's Notes [facility] Name: Kiel Ngo Age: 71 yrs Sex: Male : 1950 Arrival Date: 06/17/2022 Time: 15:20 Bed 14 Private MD: Diagnosis: Cellulitis, unspecified Presentation: 06/17 15:20 Chief complaint: Patient states: bilateral lower leg pain, bilateral lower leg kr3 abrasions. Coronavirus screen: Client denies travel out of the [place] in the last 14 days. Initial Sepsis Screen: Does the patient meet any 2 criteria? No. Patient's initial sepsis screen is negative. Does the patient have a suspected source of infection? Yes: Skin breakdown/wound. Risk Assessment: Do you want to hurt yourself or someone else? Patient reports no desire to harm self or others. Onset of symptoms was June 17, 2022. 15:21 Ebola Screen: Patient denies travel to an Ebola-affected area in the 21 days before ll1 illness onset. 15:21 Acuity: JOZEF 3 ll1 15:21 Method Of Arrival: EMS [facility] Triage Assessment: 15:46 General: Appears in no apparent distress. comfortable, Behavior is calm, cooperative. kr3 Pain: Complains of pain in lateral aspect of right calf. 15:47 Pain: Complains of pain in lateral aspect of left calf. kr3 Historical: - Allergies: 15:21 Demerol; ll1 15:21 metformin; ll1 15:21 Morphine; ll1 - PMHx: 15:21 Atrial fibrillation; chronic back pain; Chronic right leg pain; neuropathy; ll1 - PSHx: 15:21 back sx; PANCREAS SX; R. Ankle SX; ll1 - Immunization history:: Adult Immunizations up to date. - Social history:: Smoking status: Patient denies any tobacco usage or history of. Assessment: 16:30 General: Appears in no apparent distress. comfortable, Behavior is calm, cooperative. kr3 17:30 Reassessment: No changes from previously documented assessment. Patient and/or family kr3 updated on plan of care and expected duration. Pain level reassessed. Vital Signs: 15:20 BP 104 / 69; Pulse 97; Resp 16; Temp 98.8; Pulse Ox 98% on R/A; ll1 16:40 BP 125 / 79; Pulse 93; Resp 16; Pulse Ox 98% on R/A; kr3 17:40 BP 135 / 77; Pulse 94; Resp 16; Pulse Ox 99% on R/A; kr3 18:14 BP 138 / 91; Pulse 94; Resp 16; Pulse Ox 99% on R/A; kr3 ED Course: 15:20 Patient arrived in ED. ll1 15:21 Triage completed. ll1 15:21 Arm band placed on Patient placed in an exam room, on a stretcher. ll1 15:29 Curt Beard is PHCP. jl9 15:29 Calvin Wright MD is Attending Physician. jl9 15:42 Savanna Hoang, RN is Primary Nurse. kr3 16:08 XRAY Ankle LEFT 2 view In Process Unspecified. EDMS Administered Medications: 17:16 Drug: Ondansetron 4 mg Route: PO; kr3 17:40 Follow up: Response: No adverse reaction kr3 17:53 Drug: Ibuprofen 800 mg Route: PO; kr3 18:17 Follow up: Response: No adverse reaction kr3 Outcome: 17:45 Discharge ordered by . jl9 18:17 Patient left the ED. kr3 Signatures: Dispatcher [employer] EDMS Tristian Mccormack RN RN 1 Curt Beard jl9 Savanna Hoang, RN RN kr3 Corrections: (The following items were deleted from the chart) 15:56 15:20 BP 104 / 69; Pulse 97bpm; Resp 16bpm; Pulse Ox 98% RA; kr3 ll1 17:24 15:30 General: Appears in no apparent distress. comfortable, Behavior is calm, kr3 cooperative, kr3
--- NOTE | 2022-06-17 17:45 | EDPHYS ---
Physician Documentation [facility] Name: Kiel Ngo Age: 71 yrs Sex: Male : 1950 Arrival Date: 06/17/2022 Time: 15:20 Bed 14 Private MD: ED Physician Calvin Wright HPI: 06/17 15:48 This 71 yrs old Male presents to ER via EMS with complaints of left foot jl9 wound/ redness and chronic bilateral leg pain. . 15:48 Onset: The symptoms/episode began/occurred yesterday. Associated signs and symptoms: jl9 The patient has no apparent associated signs or symptoms, Pertinent positives:. Modifying factors: The patient symptoms are alleviated by nothing, the patient symptoms are aggravated by nothing. Historical: - Allergies: 15:21 Demerol; ll1 15:21 metformin; ll1 15:21 Morphine; ll1 - PMHx: 15:21 Atrial fibrillation; chronic back pain; Chronic right leg pain; neuropathy; ll1 - PSHx: 15:21 back sx; PANCREAS SX; R. Ankle SX; ll1 - Immunization history:: Adult Immunizations up to date. - Social history:: Smoking status: Patient denies any tobacco usage or history of. ROS: 15:49 Constitutional: Negative for fever, chills, and weight loss, Eyes: Negative for injury, jl9 pain, redness, and discharge, ENT: Negative for injury, pain, and discharge, Neck: Negative for injury, pain, and swelling, Cardiovascular: Negative for chest pain, palpitations, and edema, Respiratory: Negative for shortness of breath, cough, wheezing, and pleuritic chest pain, Abdomen/GI: Negative for abdominal pain, nausea, vomiting, diarrhea, and constipation, Back: Negative for injury and pain. 15:49 Neuro: Negative for headache, weakness, numbness, tingling, and seizure, Psych: Negative for depression, anxiety, suicide ideation, homicidal ideation, and hallucinations, Allergy/Immunology: Negative for hives, rash, and allergies, Endocrine: Negative for neck swelling, polydipsia, polyuria, polyphagia, and marked weight changes, Hematologic/Lymphatic: Negative for swollen nodes, abnormal bleeding, and unusual bruising. 15:49 MS/extremity: Positive for erythema, Left lateral ankle area.. 15:49 Skin: Positive for erythema. Exam: 15:50 Constitutional: This is a well developed, well nourished patient who is awake, alert, jl9 and in no acute distress. Head/Face: Normocephalic, atraumatic. Eyes: Pupils equal round and reactive to light, extra-ocular motions intact. Lids and lashes normal. Conjunctiva and sclera are non-icteric and not injected. Cornea within normal limits. Periorbital areas with no swelling, redness, or edema. ENT: Mucous membranes moist. Neck: Trachea midline, no thyromegaly or masses palpated, and no cervical lymphadenopathy. Supple, full range of motion without nuchal rigidity, or vertebral point tenderness. No Meningismus. Chest/axilla: Normal chest wall appearance and motion. Nontender with no deformity. No lesions are appreciated. Cardiovascular: Regular rate and rhythm with a normal S1 and S2. No gallops, murmurs, or rubs. Normal PMI, no JVD. No pulse deficits. Respiratory: Lungs have equal breath sounds bilaterally, clear to auscultation and percussion. No rales, rhonchi or wheezes noted. No increased work of breathing, no retractions or nasal flaring. Abdomen/GI: Soft, non-tender, with normal bowel sounds. No distension or tympany. No guarding or rebound. No evidence of tenderness throughout. Back: No spinal tenderness. No costovertebral tenderness. Full range of motion. 15:50 Neuro: Awake and alert, GCS 15, oriented to person, place, time, and situation. Cranial nerves II-XII grossly intact. Motor strength 5/5 in all extremities. Sensory grossly intact. Cerebellar exam normal. Normal gait. Psych: Awake, alert, with orientation to person, place and time. Behavior, mood, and affect are within normal limits. 15:50 Musculoskeletal/extremity: Patient has 4/5 lower ext weakness, chronic lower leg weakness per patient. . 15:50 Skin: cellulitis, that is mild, on the left foot, left lateral ankle area. 2x3 cm area. . Vital Signs: 15:20 BP 104 / 69; Pulse 97; Resp 16; Temp 98.8; Pulse Ox 98% on R/A; ll1 16:40 BP 125 / 79; Pulse 93; Resp 16; Pulse Ox 98% on R/A; kr3 17:40 BP 135 / 77; Pulse 94; Resp 16; Pulse Ox 99% on R/A; kr3 18:14 BP 138 / 91; Pulse 94; Resp 16; Pulse Ox 99% on R/A; kr3 MDM: 15:29 Patient medically screened. jl9 15:51 Data reviewed: vital signs, nurses notes. jl9 17:44 Counseling: I had a detailed discussion with the patient and/or guardian regarding: the jl9 historical points, exam findings, and any diagnostic results supporting the discharge/admit diagnosis, radiology results, the need for outpatient follow up, to return to the emergency department if symptoms worsen or persist or if there are any questions or concerns that arise at home. 06/17 15:48 Order name: XRAY Ankle LEFT 2 view; Complete Time: 17:43 jl9 Administered Medications: 17:16 Drug: Ondansetron 4 mg Route: PO; kr3 17:40 Follow up: Response: No adverse reaction kr3 17:53 Drug: Ibuprofen 800 mg Route: PO; kr3 18:17 Follow up: Response: No adverse reaction kr3 Disposition Summary: 06/17/22 17:45 Discharge Ordered Location: Home jl9 Condition: Stable jl9 Diagnosis - Cellulitis, unspecified jl9 Followup: jl9 - With: Private Physician - When: 1 - 2 days - Reason: Recheck today's complaints, Continuance of care, Re-evaluation by your physician Discharge Instructions: - Discharge Summary Sheet jl9 - Cellulitis, Adult, [id number] jl9 Forms: - Medication Reconciliation Form jl9 - Thank You Letter jl9 - Antibiotic Education jl9 - Prescription Opioid Use jl9 Prescriptions: - cephalexin 500 mg Oral tablet - take 1 tablet by ORAL route every 6 hours for 10 days; 40 tablet; Refills: 0, jl9 Product Selection Permitted Signatures: Dispatcher [employer] Tristian Mar RN RN [email or web address] Curt Beard jl9 Savanna Hoang RN RN kr3
[2022-06-17] MEDS ORDERED: IBUPROFEN 400 MG TAB ONE (18:00)
[2022-06-17 20:48] VITALS: TEMP 98.8
[2022-06-17 20:53] VITALS: O2SAT 99
[2022-06-17 20:55] VITALS: BP 138/91
== END 2022-06-17 18:17 | disposition home or self-care (01) ==
LOC: ER 15:19
DX: L03.116 Cellulitis of left lower limb (principal); Z88.5 Allergy status to narcotic agent; Z88.8 Allergy status to other drugs, medicaments and biological substances
CPT/HCPCS: 73600; 99283; Q0162

== ENCOUNTER 2022-06-21 13:05 | Emergency (ER) | payer OTHER ==
--- OUTSIDE RECORDS SUMMARY | 2022-06-21 14:02 | XMS REPORT | Continuity of Care Document ---
:1950 Author Organization [facility] t Address [address] [place] [address] Care Team Providers Name Role Phone JESSE [...] PACO LACEY Attending Clinician Unavailable Doctor Unassigned, [place] Attending Clinician Unavailable Wilder VILLAREAL, Angi K.H. Attending Clinician Jl Mccabe MD Attending Clinician Kelly Washington MD Attending Clinician [phone] Mukul Gaines MD Attending Clinician MUKUL GALLARDO Admitting Clinician Unavailable Rene Harrison MD Admitting Clinician Nicci VILLAREAL Mukul Anand Admitting Clinician Payers Payer Name Policy Type Policy Number Effective Date Expiration Date Tony doe MEDICARE PART A [id number] 2007 \\T\\ B 00:00:00 [employer] INDEMNITY [id number] 2016 00:00:00 MEDICARE PART A [id number] 2014 \\T\\ B - MEDICARE 00:00:00 INDEMNITY/TRADITIO [id number] NAL CHOICE - [employer] 00:00:00 Problems Condition [...] ents Source Name Type Date Date Clinician Anderson Propensi Active Rash 2019- Univers ty to 1-10 ity of adverse 00:00: [place] reaction 00 [facility] PEACH DRUG Active Rash 2019- Univers [...] of adverse 00:00: [place] reaction 00 [facility] Glimepir Propensi Active Hives 2011-0 Univer s efren ty to 3-16 ity of adverse 00:00: [place] reaction 00 [facility] Metformi Propensi Active Itching Unive rs [...] Quantity Comments Source Exposure to Not sure [place] of SARS-CoV-2 [place] [facility] (event) Branch History of Chews Tobacco University of tobacco use [place] [facility] History SDOH 2020-11-17 2020-11-17 5 University o f Financial 00:00:00 00:00:00 [place] [facility] History SDOH Food 2020-11-17 2020-11-17 1 Univers ity of Worry 00:00:00 00:00:00 [place] [facility] History SDDC Food 2020-11-17 2020-11-17 1 Univers ity of Scarcity 00:00:00 00:00:00 [place] [facility] History SDOH 2020-11-17 2020-11-17 1 University o f Transport Med 00:00:00 00:00:00 [place] Medic al Branch History SDOH 2020-11-17 2020-11-17 1 University o f Transport Non-Med 00:00:00 00:00:00 [facility] [place] [facility] edical Branch Education 2020-11-16 2020-11-16 21 [place] of 00:00:00 00:00:00 [facility] Alcohol intake 2020-11-16 2020-11-16 Ex-drinker [facility] 00:00:00 00:00:00 (finding) [facility] Tobacco use and 2020-08-21 2020-08-21 Former user Universi ty of exposure 00:00:00 00:00:00 [facility] Tobacco Comment 2020-08-21 2020-08-21 quit 10 years Univer sity of 00:00:00 00:00:00 ago, started in [place] Med ical 2nd year of Branch college (~40 years) Alcohol Comment 2020-08-21 2020-08-21 Used to have 2-3 Uni versity of 00:00:00 00:00:00 six-packs of [place] Medica l beer daily x 20 Branch years, quit 2005 History [facility] 2020-08-21 2020-08-21 99 University o f Alcohol Frequency 00:00:00 00:00:00 [place] M edical Branch History [facility] 2020-08-21 2020-08-21 99 University o f Alcohol Std 00:00:00 00:00:00 [place] [facility] Drinks Branch History [facility] 2020-08-21 2020-08-21 99 [place] o f Alcohol Binge 00:00:00 00:00:00 [facility] al Branch Sex [birth year] Universit y of 00:00:00 00:00:00 [facility] Smoking Status Start Date Stop Date Source Never smoker [facility] Medications Ordered Filled Start Stop Current [...] by ity of tablet 22:47: mouth at [place] 18 bedtime. Medical Branch HYDROmorpho Yes 4mg [...] by ity of tablet 22:47: mouth at [place] 18 bedtime. Medical Branch HYDROmorpho 2020-0 Yes [...] 0845, Until Discontinu ed, Routine amLODIPine Yes [id number] 10mg Take 1 Univers 10 mg 3-07 tablet by ity of tablet 00:00: mouth [place] 00 daily. Medical Branch clotrimazol 0 Yes [id number] Apply to Univers e 1 % 3-07 face/ears, ity of topical 00:00: armpits, [place] cream 00 pannus and Medical back/any Branch other rash twice a day fluocinonid 2020-0 Yes [id number] Apply to Univers e 0.05 % 3-07 scalp ity of solution 00:00: twice a day Medical Branch triamcinolo Yes [id number] Apply to Univers ne 3-07 back, ity of acetonide 00:00: armpits [place] 0.1 % cream 00 and other Med ical affected Branch areas twice daily, please mix with clotrimazo le hydrOXYzine Yes [id number] 10mg Take 1 Univers 10 mg 3-07 tablet by ity of tablet 00:00: mouth 2 (two) Medical times Branch daily. amLODIPine 0 Yes [id number] 10mg Take 1 Univers 10 mg 3-07 tablet by ity of tablet 00:00: mouth [place] 00 daily. Medical Branch clotrimazol Yes [id number] Apply to Univers e 1 % 3-07 face/ears, ity of topical 00:00: armpits, [place] cream 00 pannus and Medical back/any Branch other rash twice a day fluocinonid 0 Yes [id number] Apply to Univers e 0.05 % 3-07 scalp ity of solution 00:00: twice a day Medical Branch triamcinolo Yes [id number] Apply to Univers ne 3-07 back, ity of acetonide 00:00: armpits [place] 0.1 % cream 00 and other Med ical affected Branch areas twice daily, please mix with clotrimazo le hydrOXYzine Yes [id number] 10mg Take 1 Univers 10 mg 3-07 tablet by ity of tablet 00:00: mouth 2 (two) Medical times Branch daily. amLODIPine 2020-0 Yes [id number] 10mg Take 1 Univers 10 mg 3-07 tablet by ity of tablet 00:00: mouth [place] 00 daily. Medical Branch clotrimazol 2020-0 Yes [id number] Apply to Univers e 1 % 3-07 face/ears, ity of topical 00:00: armpits, [place] cream 00 pannus and Medical back/any Branch other rash twice a day fluocinonid 2020-0 Yes [id number] Apply to Univers e 0.05 % 3-07 scalp ity of solution 00:00: twice a day Medical Branch triamcinolo 2021-0 Yes [id number] Apply to Univers ne 3-07 back, ity of acetonide 00:00: armpits [place] 0.1 % cream 00 and other Med ical affected Branch areas twice daily, please mix with clotrimazo le hydrOXYzine Yes [id number] 10mg Take 1 Univers 10 mg 3-07 tablet by ity of tablet 00:00: mouth 2 [place] 00 (two) Medical times Branch daily. amLODIPine Yes [id number] 10mg Take 1 Univers 10 mg 3-07 tablet by ity of tablet 00:00: mouth [place] 00 daily. Medical Branch clotrimazol Yes [id number] Apply to Univers e 1 % 3-07 face/ears, ity of topical 00:00: armpits, [place] cream 00 pannus and Medical back/any Branch other rash twice a day fluocinonid Yes [id number] Apply to Univers e 0.05 % 3-07 scalp ity of solution 00:00: twice a [place] 00 day Medical Branch triamcinolo Yes [id number] Apply to Univers ne 3-07 back, ity of acetonide 00:00: armpits [place] 0.1 % cream 00 and other Med ical affected Branch areas twice daily, please mix with clotrimazo le hydrOXYzine Yes [id number] 10mg Take 1 Univers 10 mg 3-07 tablet by ity of tablet 00:00: mouth 2 [place] 00 (two) Medical times Branch daily. cephALEXin 2020-2020- No [id number] 500mg Take 1 Univers 500 mg 3-04 14-11 capsule by ity of capsule 00:00: 05:59 mouth [place] 00 :00 every 6 Medical (six) Branch hours for 3 days. cephALEXin 2020-2020- No [id number] 500mg Take 1 Univers 500 mg 3-04 14-11 capsule by ity of capsule 00:00: 05:59 mouth [place] 00 :00 every 6 Medical (six) Branch hours for 3 days. hydrOXYzine 2020-2020- No [id number] 10mg Take 1 Univers 10 mg 3-07 [...] days NaCl 0.9% No 500mL at 999 [facility] ers (NS) bolus 12-15 mL/hr, 500 it y of infusion 16:00: 15:26 mL, IV [place] 500 mL 00 :00 Piggyback, [facility] ONCE, 1 Branch dose, Fri12/15/20 at 1000, STAT HYDROmorpho Yes 4mg 4 mg, [facility] ne 12-15 Oral, BID, ity of (DILAUDID) 15:30: First dose [place] tablet 4 mg 00 (after Medica l last Branch modificati on) on Fri12/15/20 at 0930, Until Discontinu ed, Routine amLODIPine 2020- No [id number] 10mg Take 1 Univers 10 mg 12-15 tablet by ity of tablet 00:00: 00:00 mouth [place] 00 :00 daily. Medical Branch HYDROmorpho No 1mg 1 mg, [facility] ers ne 12-14 Oral, ity of (DILAUDID) 17:35: 15:18 Q6HPRN, [place] tablet 1 mg 30 :06 Starting Medi [facility] 12/14/20 Branch at 1135, Until Fri12/15/20 at 0918, Routine, Pain (scale 7-10) hydrOXYzine Yes 10mg 10 mg, [facility] ers (ATARAX) 12-14 Oral, BID, ity o f tablet 10 17:30: First [place] mg 00 on [facility] 12/14/20 at Branch 1130, Until Discontinu ed, Routine lisinopriL Yes 5mg 5 mg, Univer s (PRINIVIL,Z 12-14 Oral, ity of ESTRIL) 17:30: DAILY, [place] tablet 5 mg 00 First dose Me dical on [facility] 12/14/20 at 1130, Until Discontinu ed, Routine triamcinolo 2020- No [id number] Apply to [facility] 12-14 back, ity of acetonide 00:00: 00:00 armpits [place] 0.1 % cream 00 :00 and other Med ical affected Branch areas twice daily, please mix with clotrimazo le clotrimazol 2020- No [id number] Apply to Univers e 1 % 12-14 face/ears, ity of topical 00:00: 00:00 armpits, [place] cream 00 :00 pannus and Medical back/any Branch other rash twice a day fluocinonid 2020- No [id number] Apply to Univers e 0.05 % 12-14 scalp ity of solution 00:00: 00:00 twice a [place] 00 :00 day Medical Branch hydrOXYzine 2020- No [id number] 10mg Take 1 Univers 10 mg 12-14 [...] 1 [place] injection 4 00 :00 dose, [facility] ical mg 12/12/20 at Branch 2300, Routine traMADoL 2020- No 50mg 50 mg, Univer s (ULTRAM) 12-1303 Oral, ity of tablet 50 03:45: 03:34 ONCE, 1 [place] mg 00 :00 dose, Psychiatric 12/12/20 at Branch 2145, Routine insulin Yes 15U 15 Units, Unive rs glargine 12-12 Subcutaneo ity o f (LANTUS 15:00: us, DAILY, [place] U-100) 00 First dose Medical injection on [facility] 15 Units 12/12/20 at 0900, Until Discontinu ed hydrOXYzine 2020- No 10mg 10 mg, Uni vers (ATARAX) 12-12 0302 Oral, ity of tablet 10 08:15: 07:33 ONCE, 1 [place] mg 00 :00 dose, Psychiatric 12/12/20 at Branch 0215, Routine mirtazapine Yes 7.5mg 7.5 mg, Un toi (REMERON) 3 Oral, QHS, ity of tablet 7.5 03:00: First dose [place] mg 00 on [facility] 12/11/20 at Branch 2100, Until Discontinu [...] ity of 1,000 mg in 19:00: 17:35 Piggyday [facility], [place] NaCl 0.9% 00 :26 Q8H ABX, Medica l (NS) 50 mL First dose Bra [facility] MINI-BAG on Fri12/11/20 at 1300, [...] insulin Yes 5U 5 Units, [facility] s lispro 12-11 Subcutaneo ity of (human) 18:00: , TID [place] (HumaLOG 00 MEALS, Medical U-100) First dose Branch injection 5 on Fri Units 12/11/20 at 1200, Until Discontinu ed Polyethylen Yes 17g 17 g, [facility] rs e Glycol 12-11 Oral, ity of 3350 17:47: [id number], [place] (MIRALAX) 05 Starting Medica l powder [...]
Duration of therapy: 72 hours sennosides- Yes [id number] 1{tbl} Take 1 [facility] docusate 2- tablet by ity of sodium 00:00: mouth 2 [place] 8.6-50 mg 00 (two) Medical per tablet times Branch daily. hydrocortis Yes [id number] Apply to [facility] one 2.5 % 11-21 affected ity of cream 00:00: area(s) 2 [place] 00 (two) Medical times Branch daily. blood sugar Yes [id number] Use to Univers diagnostic 11-21 check ity of (FREESTYLE 00:00: blood [place] LITE 00 glucose Medical STRIPS) 4-5 times Branch strip daily. Polyethylen Yes [id number] 17g Take 1 Univers e Glycol 11-21 Packet by ity of 3350 17 00:00: mouth [place] gram powder 00 every 24 Medi jose c (twenty-fo Branch ur) hours as needed for Constipati on. sennosides- 2020- Yes [id number] 1{tbl} Take 1 Univers docusate 2-09 tablet by ity of sodium 00:00: mouth 2 [place] 8.6-50 mg 00 (two) Medical per tablet times Branch daily. hydrocortis 2020- Yes [id number] Apply to Univers one 2.5 % 2-09 affected ity of cream 00:00: area(s) 2 [place] 00 (two) Medical times Branch daily. blood sugar 2020- Yes [id number] Use to [facility] diagnostic 11-21 check ity of (FREESTYLE 00:00: blood [place] LITE 00 glucose Medical STRIPS) 4-5 times Branch strip daily. Polyethylen 2020- Yes [id number] 17g Take 1 Univers e Glycol 2-09 Packet by ity of 3350 17 00:00: mouth [place] gram powder 00 every 24 Medi jose c (twenty-fo Branch ur) hours as needed for Constipati on. sennosides- Yes [id number] 1{tbl} Take 1 Univers docusate 2-09 tablet by ity of sodium 00:00: mouth 2 [place] 8.6-50 mg 00 (two) Medical per tablet times Branch daily. hydrocortis 2020- Yes [id number] Apply to Univers one 2.5 % 2-09 affected ity of cream 00:00: area(s) 2 [place] 00 (two) Medical times Branch daily. blood sugar 2020- Yes [id number] Use to [facility] diagnostic 11-21 check ity of (FREESTYLE 00:00: blood [place] LITE 00 glucose Medical STRIPS) 4-5 times Branch strip daily. Polyethylen 2020-0 Yes [id number] 17g Take 1 Univers e Glycol 2-09 Packet by ity of 3350 17 00:00: mouth [place] gram powder 00 every 24 Medi jose c (twenty-fo Branch ur) hours as needed for Constipati on. sennosides- 2020- Yes [id number] 1{tbl} Take 1 Univers docusate 2-09 tablet by ity of sodium 00:00: mouth 2 [place] 8.6-50 mg 00 (two) Medical per tablet times Branch daily. hydrocortis Yes [id number] Apply to [facility] one 2.5 % 11-21 affected ity of cream 00:00: area(s) 2 [place] 00 (two) Medical times Branch daily. blood sugar Yes [id number] Use to [facility] diagnostic 11-21 check ity of (FREESTYLE 00:00: blood [place] LITE 00 glucose Medical STRIPS) 4-5 times Branch strip daily. Polyethylen Yes [id number] 17g Take 1 Univers e Glycol 11-21 Packet by ity of 3350 17 00:00: mouth [place] gram powder 00 every 24 Medi jose c (twenty-fo Branch ur) hours as needed for Constipati on. Insulin 2020- No [id number] 15U inject 15 Univers Glargine 11-21 Units ity of (LANTUS 00:00: 05:59 under the [place] SOLOSTAR 00 :00 skin every Medic al U-100 morning Branch INSULIN) for 30 100 unit/mL days. (3 mL) injection venlafaxine 2020- No [id number] 150mg Take 1 Univers XR 150 mg 11-21 capsule by ity of 24 hr 00:00: 05:59 mouth 3 [place] capsule 00 :00 (three) Medical times Branch daily for 30 days. Insulin 2020- No [id number] 15U inject 15 Univers Glargine 11-21 Units ity of (LANTUS 00:00: 05:59 under the [place] SOLOSTAR 00 :00 skin every Medic al U-100 morning Branch INSULIN) for 30 100 unit/mL days. (3 mL) injection venlafaxine 2020- No [id number] 150mg Take 1 Univers XR 150 mg 11-21 capsule by ity of 24 hr 00:00: 05:59 mouth 3 [place] capsule 00 :00 (three) Medical times Branch daily for 30 days. triamcinolo 2020- No [id number] Apply to [facility] ne 11-21-04 area(s) 2 ity of acetonide 00:00: 00:00 (two) [place] 0.1 % cream 00 :00 times Medical daily. Branch cephALEXin 2020- No [id number] 1000mg Take 2 Univers 500 mg 11-21 capsules ity of capsule 00:00: 00:00 by mouth 3 [place] 00 :00 (three) Medical times Branch daily. doxycycline 2020- No [id number] 100mg Take 1 Univers hyclate 100 11-21 capsule by i ty of mg capsule 00:00: 00:00 mouth [place] 00 :00 every 12 Medical (twelve) Branch hours. lactobacill 2020- No [id number] 1{tbl} Take 1 Univers us 11-21 tablet by ity of acidophilus 00:00: 00:00 mouth 2 [place] 25 million 00 :00 (two) Medical cell -100 times Branch mg captab daily. bisacodyL 2020- No [id number] 10mg Insert 1 Univers 10 mg 11-21 Suppositor ity of suppository 00:00: 00:00 y into [place] 00 :00 rectum at Medical bedtime as Branch needed for Constipati on. ALPRAZolam 2020- No [id number] .25mg Take 1 Univers (XANAX) 11-21 tablet by ity of 0.25 mg 00:00: 00:00 mouth 2 [place] tablet 00 :00 (two) Medical times Branch daily. hydrOXYzine 2020- No [id number] 20mg Take 2 Univers 10 mg 11-21 [...] 3 ity of 6 mg 01:13: (three) [place] capsule 36 times Medical daily. Branch Insulin 2019-10 Yes 15U inject 15 Unive rs Glargine 1-12 Units ity of (LANTUS 01:13: under the [place] SOLOSTAR) 36 skin. Medical 100 unit/mL Branch (3 mL) InPn INSULIN 2019-10 Yes 5U inject 5 Univer s ASPART 1-12 Units ity of (NOVOLOG 01:13: under the [facility] FLEXPEN SC) 36 skin. Medical [...] Units ity of (NOVOLOG 01:13: under the [facility] FLEXPEN SC) 36 skin. Medical [...] ity of (NOVOLOG 01:13: under the [facility] s FLEXPEN SC) 36 skin. Medical Branch ALPRAZolam 2019-10 Yes .25mg Take 0.25 U nivers (XANAX) 1-12 mg by ity of 0.25 mg 01:13: mouth 2 [place] tablet 36 (two) Medical times Branch daily. HYDROXYZINE 2019-10 2020- No 25mg Take 25 mg Univers PAMOATE 1-11 11-11 by mouth ity of ORAL 20:04: 00:00 daily. [place] 34 :00 Medical Branch hydrocortis 2019-10 Yes [id number] Apply to Univers one 2.5 % 1-11 affected ity of cream 00:00: area(s) 2 [place] 00 (two) Medical times Branch daily. hydrOXYzine 2019- Yes [id number] 20mg Take 2 Univers 10 mg 1-11 tablets by ity of tablet 00:00: mouth [place] 00 every 8 Medical (eight) Branch hours as needed for Itching or Anxiety. Polyethylen 2019- Yes [id number] 17g Take 1 Univers e Glycol 1-11 Packet by ity of 3350 17 00:00: mouth [place] gram powder 00 every 24 Medi jose c (twenty-fo Branch ur) hours as needed for Constipati on. hydrocortis 2019-10 Yes [id number] Apply to Univers one 2.5 % 1-11 affected ity of cream 00:00: area(s) 2 [place] 00 (two) Medical times Branch daily. hydrOXYzine 2019- Yes [id number] 20mg Take 2 Univers 10 mg 1-11 tablets by ity of tablet 00:00: mouth [place] 00 every 8 Medical (eight) Branch hours as needed for Itching or Anxiety. Polyethylen 2019- Yes [id number] 17g Take 1 Univers e Glycol 1-11 Packet by ity of 3350 17 00:00: mouth [place] gram powder 00 every 24 Medi jose c (twenty-fo Branch ur) hours as needed for Constipati on. hydrocortis 2019- Yes [id number] Apply to Univers one 2.5 % 1-11 affected ity of cream 00:00: area(s) 2 [place] (two) Medical times Branch daily. hydrOXYzine 2019- Yes [id number] 20mg Take 2 Univers 10 mg 1-11 tablets by ity of tablet 00:00: mouth [place] 00 every 8 Medical (eight) Branch hours as needed for Itching or Anxiety. Polyethylen 2019- Yes [id number] 17g Take 1 Univers e Glycol 1-11 Packet by ity of 3350 17 00:00: mouth [place] gram powder 00 every 24 Medi jose c (twenty-fo Branch ur) hours as needed for Constipati on. hydrocortis 2019-10 Yes [id number] Apply to Univers one 2.5 % 1-11 affected ity of cream 00:00: area(s) 2 [place] (two) Medical times Branch daily. hydrOXYzine 2019-10 Yes [id number] 20mg Take 2 Univers 10 mg 1-11 tablets by ity of tablet 00:00: mouth [place] 00 every 8 Medical (eight) Branch hours as needed for Itching or Anxiety. Polyethylen 2019-10 Yes [id number] 17g Take 1 Univers e Glycol 1-11 Packet by ity of 3350 17 00:00: mouth [place] gram powder 00 every 24 Medi jose c (twenty-fo Branch ur) hours as needed for Constipati on. hydrocortis 2019-10 Yes [id number] Apply to Univers one 2.5 % 1-11 affected ity of cream 00:00: area(s) 2 [place] (two) Medical times Branch daily. hydrOXYzine 2019-10 Yes [id number] 20mg Take 2 Univers 10 mg 1-11 tablets by ity of tablet 00:00: mouth [place] 00 every 8 Medical (eight) Branch hours as needed for Itching or Anxiety. Polyethylen 2019- Yes [id number] 17g Take 1 Univers e Glycol 1-11 Packet by ity of 3350 17 00:00: mouth [place] gram powder 00 every 24 Medi jose c (twenty-fo Branch ur) hours as needed for Constipati on. hydrocortis 2019-10 Yes [id number] Apply to Univers one 2.5 % 1-11 affected ity of cream 00:00: area(s) 2 [place] (two) Medical times Branch daily. hydrOXYzine 2019-10 Yes [id number] 20mg Take 2 Univers 10 mg 1-11 tablets by ity of tablet 00:00: mouth [place] 00 every 8 Medical (eight) Branch hours as needed for Itching or Anxiety. Polyethylen 2019- Yes [id number] 17g Take 1 Univers e Glycol 1-11 Packet by ity of 3350 17 00:00: mouth [place] gram powder 00 every 24 Medi jose c (twenty-fo Branch ur) hours as needed for Constipati on. hydrocortis 2019- Yes [id number] Apply to Univers one 2.5 % 1-11 affected ity of cream 00:00: area(s) 2 [place] 00 (two) Medical times Branch daily. hydrOXYzine 2019-10 Yes [id number] 20mg Take 2 Univers 10 mg 1-11 tablets by ity of tablet 00:00: mouth [place] 00 every 8 Medical (eight) Branch hours as needed for Itching or Anxiety. Polyethylen 2019-10 Yes [id number] 17g Take 1 Univers e Glycol 1-11 Packet by ity of 3350 17 00:00: mouth [place] gram powder 00 every 24 Medi jose c (twenty-fo Branch ur) hours as needed for Constipati on. triamcinolo 2019- 2020- No [id number] Apply to [facility] 10-23 area(s) 2 ity of acetonide 00:00: 05:59 (two) [place] 0.1 % cream 00 :00 times Medical daily for Branch 14 days. triamcinolo 2019- 2020- No [id number] Apply to [facility] 10-23 area(s) 2 ity of acetonide 00:00: 05:59 (two) [place] 0.1 % cream 00 :00 times Medical daily for Branch 14 days. triamcinolo 2019- 2020- No [id number] Apply to [facility] 10-23 area(s) 2 ity of acetonide 00:00: 05:59 (two) [place] 0.1 % cream 00 :00 times Medical daily for Branch 14 days. KCL 2019- 2020- No 40meq 40 mEq, Univers (KLOR-CON - 11-10 Oral, ONCE ity of M20) tablet 16:15: 16:23 NOW, 1 [place] 40 mEq 00 :00 dose, Psychiatric 08/22/20 Branch at 1015, Routine HYDROmorpho 2019-10 Yes 1mg 1 mg, Unive rs ne 1-10 Oral, ity of (DILAUDID) 15:07: Q6HPRN, [place] tablet 1 mg 53 Starting [facility] 08/22/20 at 0907, Until Discontinu ed, Routine, Pain (scale 7-10) hydrocortis 2019-10 Yes Topical Uni vers one 2.5 % 1-10 (Apply To ity o f cream 02:00: Affected [place] 00 Areas), Medical BID, First Branch dose on [facility] 08/21/20 at 2000, Until Discontinu ed, Routine triamcinolo 2019-10 Yes Topical, Un toi ne 1-10 BID, First ity of acetonide 02:00: dose on [place] (TRIDERM) 00 [facility] Medical 0.1 % cream 08/21/20 at Br anch 2000, Until Discontinu ed, Routine hydrOXYzine 2019-10 Yes 20mg 20 mg, Univ ers (ATARAX) 09 Oral, ity of tablet 20 17:39: Q8HPRN, [place] mg 12 Starting Medical [facility] 08/21/20 at 1139, Until Discontinu ed, Routine, Itching, Anxiety sennosides- 2019-10 Yes 1{tbl} 1 tablet, Univers docusate 10-21 Oral, ity of sodium 15:00: DAILY, [place] (SENOKOT-S) 00 First dose Me dical 8.6-50 mg on [facility] per tablet 08/21/20 at 1 tablet 0900, Until Discontinu ed, Routine hydrocortis 2019-10 2020- No Topical Un toi one 1 % 10-21 (Apply To ity of cream 15:00: 22:54 Affected [place] 00 :48 Areas), Medical DAILY, Branch First dose on [facility] 08/21/20 at 0900, Until Discontinu ed, Routine venlafaxine 2019-10 Yes 150mg 150 mg, Un toi XR (EFFEXOR 09 Oral, TID, it y of XR) 24 hr 14:00: First dose [place] capsule 150 00 on [facility] Medica l mg 08/21/20 at [...] 25 59 :43 Starting Medica l mg [facility] 08/21/20 at 0656, Until Fri08/21/20 at 1139, Routine, Itching, Mild Rash, Congestion /Allergies , alternate with hydroxyzin e hydrOXYzine 2019-10 No 10mg 10 mg, Uni vers (ATARAX) 10-21 Oral, ity of tablet 10 10:20: 12:57 Q6HPRN, [place] mg 22 :12 Starting Medical [facility] 08/21/20 at 0420, Until Fri08/21/20 [...] 1 ity o f 09:30: 09:14 dose, [facility] 00 :00 08/21/20 at [facility] 0330, Branch Routine Polyethylen 2019-10 Yes 17g 17 g, Unive rs e Glycol 10-21 Oral, ity of 3350 08:29: [id number], [place] (MIRALAX) 09 Starting Medica l powder 17 g [facility] 08/21/20 at 0229, Until Discontinu ed, Routine, Constipati on lanolin 2019-10 Yes Topical, Univer s alcohol-mo- 10-21 PRN, ity of w.pet-ceres 08:26: Starting [place] (EUCERIN) 30 [facility] Medical cream 08/21/20 at Branch 0226, [...] of 40 mg 08:22: 00:00 daily with [place] capsule 59 :00 breakfast. Medica l Branch [...] 1-3) sotalol 2019-10 2020- No [facility] (BET[facility]ACE[facility] 10-21 mouth ity of 240 mg 07:43: 00:00 every 12 [place] tablet 30 :00 (twelve) Medical hours. Branch blood sugar Yes Use to [facility] ers diagnostic 4-25 check ity of (FREESTYLE 00:00: blood [place] LITE 00 glucose Medical STRIPS) 4-5 times Branch strip daily. blood sugar Yes Use to [facility] ers diagnostic 4-25 check ity of (FREESTYLE 00:00: blood [place] LITE 00 glucose Medical STRIPS) 4-5 times Branch strip daily. blood sugar Yes Use to [facility] ers diagnostic 4-25 check ity of (FREESTYLE 00:00: blood [place] LITE 00 glucose Medical STRIPS) 4-5 times Branch strip daily. blood sugar Yes Use to [facility] ers diagnostic 4-25 check ity of (FREESTYLE [...] 13:00:00 84 mm[Hg] Unive rsity of pressure [place] [facility] Heart rate 2021-08-22 13:00:00 103 /min Universi ty [facility] Respiratory rate 2021-08-22 13:00:00 18 /min Univ ersity of [facility] Oxygen saturation in 2021-08-22 13:00:00 95 /min University of Arterial blood by [facility] Pulse oximetry Branch Body temperature 2021-08-22 12:22:00 36.72 [place] Univ ersity of [facility] Systolic blood 2020-12-17 18:35:00 139 mm[Hg] Univer sity of pressure [place] [facility] Diastolic blood 2020-12-17 18:35:00 87 mm[Hg] Unive rsity of pressure [place] [facility] Heart rate 2020-12-17 18:35:00 110 /min Universi ty [facility] Body temperature 2020-12-17 18:35:00 37.72 [place] [facility] ersity of [facility] Respiratory rate 2020-12-17 18:35:00 18 /min Univ ersity of [facility] Oxygen saturation in 2020-12-17 18:35:00 93 /min University of Arterial blood by [facility] Pulse oximetry Branch Body height 2020-12-12 08:21:00 180.3 cm Universi ty of [place] [facility] Body weight 2020-12-12 08:21:00 103.42 kg Universi ty [facility] [place] [facility] BMI 2020-12-12 08:21:00 31.80 kg/m2 Universi ty [facility] [place] [facility] Systolic blood 2020-12-17 18:35:00 139 mm[Hg] Univer sity of pressure [place] [facility] Diastolic blood 2020-12-17 18:35:00 87 mm[Hg] Unive rsity of pressure [place] [facility] Heart rate 2020-12-17 18:35:00 110 /min Universi ty [facility] [place] [facility] Body temperature 2020-12-17 18:35:00 37.72 [place] Univ ersity of [place] [facility] Respiratory rate 2020-12-17 18:35:00 18 /min Univ ersity of [place] [facility] Oxygen saturation in 2020-12-17 18:35:00 93 /min University of Arterial blood by [employer] [facility] Pulse oximetry Branch Body height 2020-12-12 08:21:00 180.3 cm Universi ty [facility] [place] [facility] Body weight 2020-12-12 08:21:00 103.42 kg Universi ty [facility] [place] [facility] BMI 2020-12-12 08:21:00 31.80 kg/m2 [...] 93 /min University of Arterial blood by [employer] [facility] Pulse oximetry Branch Body weight 2020-08-21 07:20:00 104.962 kg Universi ty [facility] [place] [facility] BMI 2020-08-21 07:20:00 32.27 kg/m2 Universi ty [facility] [place] [facility] Systolic blood 2020-08-23 19:27:00 140 mm[Hg] Univer sity of pressure [place] [facility] Diastolic blood 2020-08-23 19:27:00 79 mm[Hg] [facility] of pressure [facility] Heart rate 2020-08-23 19:27:00 99 /min [facility] Body temperature 2020-08-23 19:27:00 36 [place] [facility] rate 2020-08-23 19:27:00 18 /min [facility] Oxygen saturation in 2020-08-23 19:27:00 93 /min [facility] Arterial blood by [facility] Pulse oximetry [place] Body weight 2020-08-21 07:20:00 104.962 kg [facility] BMI 2020-08-21 07:20:00 32.27 kg/m2 [facility] Procedures Procedure Date / Time Performing Clinician Source Performed POCT GLUCOSE (AUTOMATED) 2020-12-17 15:42:00 Harrison, Premal G Uni [facility] BASIC METABOLIC PANEL 2020-12-17 10:45:00 Paul Bean [facility] (NA, K, CL, CO2, GLUCOSE, [facility] Medica l Branch BUN, CREATININE, CA) CBC WITH DIFF 2020-12-17 10:45:00 Paul Bean [facility] POCT GLUCOSE (AUTOMATED) 2020-12-17 02:36:00 [facility] XR TIBIA FIBULA 2 VW LEFT 2020-12-16 23:38:00 Paul Bean [facility] POCT GLUCOSE (AUTOMATED) 2020-12-16 23:20:00 Harrison, Premal [facility] PO[facility]UCOSE (AUTOMATED) 2020-12-16 20:10:00 Harrison, [facility]al [facility] PO[facility]UCOSE (AUTOMATED) 2020-12-16 14:43:00 Harrison, [facility]al [facility] BASIC METABOLIC PANEL 2020-12-16 13:51:00 Paul Bean [facility] (NA, K, CL, CO2, GLUCOSE, [place] [facility] BUN, CREATININE, CA) CBC WITH DIFF 2020-12-16 13:51:00 Paul Bean [facility] POCT GLUCOSE (AUTOMATED) 2020-12-16 04:00:00 Harrison, Premal G Uni versity of [facility] POCT GLUCOSE (AUTOMATED) 2020-12-16 00:14:00 Harrison, Premal G Uni versity of [facility] CT CHEST PULMONARY 2020-12-15 22:29:38 Paul Bean [facility] ANGIOGRAM [facility] POCT GLUCOSE (AUTOMATED) 2020-12-15 19:26:00 Harrison, Premal G Uni versity of [facility] POCT GLUCOSE (AUTOMATED) 2020-12-15 15:13:00 Hunter, [facility]al [facility] HB ECG ROUTINE & RHYTHM 2020-12-15 14:25:27 Cailin Romo [facility] STRIP [facility] Branch MAGNESIUM 2020-12-15 12:01:00 Paul Bean Sivakumar [facility] BASIC METABOLIC PANEL 2020-12-15 12:01:00 Paul Bean [facility] (NA, K, CL, CO2, GLUCOSE, [place] [facility] BUN, CREATININE, CA) CBC WITH DIFF 2020-12-15 12:01:00 Paul Bean [facility] POCT GLUCOSE (AUTOMATED) 2020-12-15 03:57:00 Harrison, Premal G Uni versity of [facility] POCT GLUCOSE (AUTOMATED) 2020-12-14 23:31:00 Harrison, Premal G Uni versity of [facility] POCT GLUCOSE (AUTOMATED) 2020-12-14 19:08:00 Harrison, Premal G Uni versity of [facility] POCT GLUCOSE (AUTOMATED) 2020-12-14 15:11:00 Harrison, Premal G Uni versity of [facility] POCT GLUCOSE (AUTOMATED) 2020-12-14 02:36:00 Harrison, Premal G Uni versity of [facility] POCT GLUCOSE (AUTOMATED) 2020-12-13 23:32:00 Harrison, Premal G Uni versity of [facility] POCT GLUCOSE (AUTOMATED) 2020-12-13 18:08:00 Harrison, Premal G Uni versity of [facility] BASIC METABOLIC PANEL 2020-12-13 15:39:00 Paul Bean [facility] (NA, K, CL, CO2, GLUCOSE, [place] [facility] BUN, CREATININE, CA) CBC WITH DIFF 2020-12-13 15:39:00 Paul Bean [facility] POCT GLUCOSE (AUTOMATED) 2020-12-13 14:06:00 Harrison, Premal G Uni versity of [facility] POCT GLUCOSE (AUTOMATED) 2020-12-13 03:07:00 Harrison, Premal G Uni versity of [facility] POCT GLUCOSE (AUTOMATED) 2020-12-12 23:52:00 Harrison, Premal G Uni versity of [facility] POCT GLUCOSE (AUTOMATED) 2020-12-12 20:28:00 Harrison, Premal G Uni versity of [facility] POCT GLUCOSE (AUTOMATED) 2020-12-12 19:14:00 Harrison, Premal G Uni versity of [facility] POCT GLUCOSE (AUTOMATED) 2020-12-12 14:33:00 Harrison, Premal G Uni versity of [facility] MAGNESIUM 2020-12-12 08:58:00 Paul Bean [facility] BASIC METABOLIC PANEL 2020-12-12 08:58:00 Paul Bean [facility] (NA, K, CL, CO2, GLUCOSE, [facility] [facility] BUN, CREATININE, CA) CBC WITH DIFF 2020-12-12 08:58:00 Paul Bean [facility] US ABDOMEN LIMITED 2020-12-12 06:32:26 Paul Bean [facility] POCT GLUCOSE (AUTOMATED) 2020-12-12 03:40:00 Harrison, Premal G Uni versity of [facility] POCT GLUCOSE (AUTOMATED) 2020-12-12 00:06:00 Harrison, Premal G Uni versity [facility] XR HIPS 3 VW LEFT 2020-12-11 20:20:00 Paul Bean [facility] HB ECG ROUTINE & RHYTHM 2020-12-11 20:04:06 Demetrius [facility] STRIP [facility] VITAMIN B6, PLASMA 2020-12-11 19:17:00 Vikas [facility] POCT GLUCOSE (AUTOMATED) 2020-12-11 19:06:00 Rene Harrison [facility] CREATINE KINASE 2020-12-11 18:22:00 Parvez Clarisse [facility] VITAMIN B12, LEVEL 2020-12-11 18:22:00 Vikas [facility] FOLATE 2020-12-11 18:22:[address] [facility] THYROID STIMULATING 2020-12-11 18:22:00 [facility] PROCALCITONIN 2020-12-11 18:22:[address] [facility] VITAMIN B1 (THIAMINE), 2020-12-11 18:22:00 Vikas [facility] WHOLE BLOOD [facility] CT HEAD WO CONTRAST 2020-12-11 14:07:35 Sweetie Stout [facility] URINALYSIS 2020-12-11 13:44:00 Singer Paco [facility] URINE CULTURE 2020-12-11 13:44:00 Singer [facility] COVID-19 (ID NOW RAPID 2020-12-11 12:31:00 Paco Lacey [facility] TESTING) [facility] LAB ONLY COVID 2020-12-11 12:31:[address] [facility] XR CHEST 1 VW 2020-12-11 12:07:24 Singer [facility] BLOOD CULTURE SCREEN 2020-12-11 12:02:00 Paco Lacey [facility] MAGNESIUM 2020-12-11 12:02:00 [facility] 2020-12-11 12:02:[address] [facility] COMP. METABOLIC PANEL 2020-12-11 12:02:00 Singer Paco [facility] ([id number]) Medical Branch CBC WITH DIFF 2020-12-11 12:02:00 Singer [facility] LACTIC ACID WHOLE BLOOD 2020-12-11 12:02:00 Singer Paco [facility] BLOOD CULTURE SCREEN 2020-12-11 11:42:00 Paco Lacey [facility] EMERGENCY SERVICES 2020-12-11 06:01:00 Doctor Unassnadya, [facility] AGREEMENTS AND [place] [facility] AUTHORIZATIONS HOSPITAL ADMISSION 2020-12-11 06:01:00 Doctor Tabitha [facility] Name Medical [place] HOME HEALTH - OTHER 2020-11-11 06:01:00 Doctor Tabitha [facility] [place] Medical [place] [facility] - OTHER 2020-10-30 06:01:00 Doctor Tabitha [facility] Name Medical [place] EXTERNAL PROVIDER RECORDS 2020-09-01 06:01:[address] [facility] Name Medical [place] POCT GLUCOSE (AUTOMATED) 2020-08-23 18:09:00 Kelly [place] [facility] POCT GLUCOSE (AUTOMATED) 2020-08-23 14:14:00 Kelly [place] [facility] MAGNESIUM 2020-08-23 11:18:00 [place] Stone [facility] BASIC METABOLIC PANEL 2020-08-23 11:18:00 White Stone [facility] (NA, K, CL, CO2, GLUCOSE, Medica l Branch BUN, CREATININE, CA) CBC WITH DIFF 2020-08-23 11:18:00 [place] [facility] POCT GLUCOSE (AUTOMATED) 2020-08-23 10:21:00 Kelly [place] [facility] POCT GLUCOSE (AUTOMATED) 2020-08-23 05:55:00 Kelly [place] [facility] POCT GLUCOSE (AUTOMATED) 2020-08-23 03:00:00 Kelly [place] [facility] POCT GLUCOSE (AUTOMATED) 2020-08-22 23:38:00 Stefania Kelly Elias versity [facility] POCT GLUCOSE (AUTOMATED) 2020-08-22 19:04:00 [facility] PO[facility] GLUCOSE (AUTOMATED) 2020-08-22 13:49:00 Bety [place] Elias versity [facility] MAGNESIUM 2020-08-22 10:10:00 [facility] HE[facility] FUNCTION PANEL 2020-08-22 10:10:00 Aguila Melchor [facility] ([id number]) (ALB,T.PRO,[facility] T,BU/BC,ALT,AST,ALK PHOS) BASIC METABOLIC PANEL 2020-08-22 10:10:00 [place], [facility] (NA, K, CL, CO2, GLUCOSE, Medica l Branch BUN, CREATININE, CA) LIPID PANEL (84370)(TOTAL 2020-08-22 10:10:00 [place], [facility] TRIGLYCERIDES, HDL) CBC WITH DIFF 2020-08-22 10:10:00 [facility] POCT GLUCOSE (AUTOMATED) 2020-08-22 10:10:00 Stefania Kelly Elias [facility] POCT GLUCOSE (AUTOMATED) 2020-08-22 07:13:00 Stefania Kelly Elias [facility] POCT GLUCOSE (AUTOMATED) 2020-08-22 02:24:00 Stefania Kelly Elias [facility] POCT GLUCOSE (AUTOMATED) 2020-08-21 23:40:00 Stefania Kelly Elias versity [facility] POCT GLUCOSE (AUTOMATED) 2020-08-21 18:10:00 Stefania Kelly Elias [facility] POCT GLUCOSE (AUTOMATED) 2020-08-21 13:39:00 Stefania [facility] ETHANOL 2020-08-21 12:35:00 Jos Quiroz [facility] ACTIVATED PARTIAL 2020-08-21 12:35:00 Stefania [facility] GALV ONLY - SYPHILIS 2020-08-21 12:35:00 Stefania [facility] IGG/IGM [facility] LACTATE DEHYDROGENASE 2020-08-21 10:09:00 [place], [facility] GALV/CLC ONLY - URINE 2020-08-21 10:09:00 Jos Quiroz [facility] DRUG (IMMUNOASSAY) - 4 ER Medica l Branch PANEL URINALYSIS 2020-08-21 10:09:00 [place], [facility] URINE CULTURE 2020-08-21 10:09:00 Ramya, [facility] PROCALCITONIN 2020-08-21 10:09:00 [place], [facility] POCT GLUCOSE (AUTOMATED) 2020-08-21 09:41:00 Stefania [facility] PROTHROMBIN TIME / INR 2020-08-21 08:32:00 [place], [facility] ACTIVATED PARTIAL 2020-08-21 08:32:00 [place], [facility] C-REACTIVE PROTEIN 2020-08-21 08:31:00 Ramya, [facility] HEPATIC FUNCTION PANEL 2020-08-21 08:31:00 Ramya, [facility] ([id number]) (ALB,T.PRO,BILI [facility] T,BU/BC,ALT,AST,ALK PHOS) BASIC METABOLIC PANEL 2020-08-21 08:31:00 [place], [facility] (NA, K, CL, CO2, GLUCOSE, [facility] BUN, CREATININE, CA) SEDIMENTATION RATE 2020-08-21 08:31:00 Ramya, [facility] CBC WITH DIFF 2020-08-21 08:31:00 [place], [facility] GLYCOSYLATED HEMOGLOBIN 2020-08-21 08:31:00 [place], [facility] (A1C) [facility] HIV 1/2 AG-AB WITH REFLEX 2020-08-21 08:31:00 [place], [facility] [place] [facility] (ID NOW RAPID 2020-08-21 08:20:00 [facility] Medical Branch LAB ONLY COVID 2020-08-21 08:20:00 Haily Bui [place] [facility] Encounters Start End Encounter Admission Attending Care Care Encounter Source Date/Time Date/Time Type Type Clinicians Facility Department ID 2020-08-21 Inpatient [facility] [id number] Univers 01:07:00 KELLY cantu [facility] 2021-08-22 2021-08-22 [id number] Univers 06:21:00 08:02:00 SWEETIE cantu [facility] 2021-08-22 2021-08-22 [facility] [id number] Univers 06:21:00 08:02:00 Sweetie LOTT [id number] i ty of [place] 4.2.7.2.686 [facility] [id number] [facility] 084 Branch 2021-08-09 2021-08-09 Outpatient ZAKI, [facility] [id number] [facility] 10:27:03 10:27:03 ADRIANA lopez of Medicin e 2020-12-28 2020-12-28 Telephone [facility] [id number] 00:00:00 00:00:00 Calvin H PRIMARY [id number] CARE 4.2.7.2.686 PAVILLION [id number] 2020-12-28 2020-12-28 Telephone [facility] 1.2.840.114 [id number] Univers 00:00:00 00:00:00 Calvin H PRIMARY [id number] it y of CARE 4.2.7.2.686 [facility] [id number] Ca dical 220 Branch 2020-12-19 2020-12-19 Transition Tuan Peters 1.2.840.114 [id number] 00:00:00 00:00:00 of Care Ruchi Braswell [id number] [place] 4.2.7.2.686 [id number] 2020-12-19 2020-12-19 Transition Tuan Petesr 1.2.840.114 [id number] Univers 00:00:00 00:00:00 of Care Ruchi Braswell [id number] it y of [place] 4.2.7.2.[id number] [facility] 403 Branch 2020-12-11 2020-12-17 [facility] Paco Lacey Ayleen 1.2.840.1 [id number] 05:11:00 16:00:00 Encounter Rene [place] [id number] [facility] 4.2.7.2.686 [id number] [facility] 2020-12-11 2020-12-17 [facility] Paco Lacey 1.2.840.1 [id number] [facility] 05:11:00 16:00:00 Encounter Rene Harrison [place] [id number] ity [facility] 4.2.7.2.686 [place] [id number] [place] [id number] [place] 2020-12-11 2020-12-11 Emergency X [facility] ERT [id number] Univers 05:11:00 05:11:00 PACO cantu [facility] 2020-11-16 2020-11-16 Emergency X [facility] ERT [id number] Univers 09:31:00 09:31:00 PACO cantu [facility] 2020-11-11 2020-11-11 Orders Doctor CUI 1.2.840.114 [id number] 00:00:00 00:00:00 Only UnassignedNATTY [id number] [place] [facility] 4.2.7.2.686 [id number] 009 2020-11-11 2020-11-11 Orders Doctor CUI 1.2.840.114 [id number] Univers 00:00:00 00:00:00 Only UnassignedNATTY [id number] ity of [place] [facility] 4.2.7.2.686 Jeff as [phone] [address] 2020-11-07 2020-11-07 [facility] [id number] 00:00:00 00:00:00 Sendsiobhan Lott 350.1.13.10 [place] 4.2.7.2.686 Professio [id number] [address] 2020-11-07 2020-11-07 [facility] [id number] Univers 00:00:00 00:00:00 Sendil Danitza Lott [id number] ity of [place]2.7.2.686 [place] Profess[place] [id number] [address] 2020-10-30 2020-10-30 Orders Doctor CUI 1.2.840.114 [id number] 00:00:00 00:00:00 Only Unassigned, NATTY 350.1.13.10 [place] [facility] 4.2.7.2.[id number] [facility] 2020-10-30 2020-10-30 Orders Doctor BASILIA 1.2.840.114 [id number] Univers 00:00:00 00:00:00 Only Unassigned, NATTY 350.1.13.10 ity of [place] [facility] 4.2.7.2.686 Jeff as [id number] [address] 2020-09-26 2020-09-26 Telephone STONE Mccabe 1.2.840.114 [id number] 00:00:00 00:00:00 [facility] [id number] CLINICS 4.2.7.2.686 [id number] 2020-09-26 2020-09-26 Telephone STONE Mccabe 1.2.840.114 [id number] Univers 00:00:00 00:00:00 [facility] 350.1.13.10 i ty of CLINICS 4[place]2.7.2.686 [place] [id number] [address] 2020-09-01 2020-09-01 Orders Doctor BASILIA 1.2.840.114 [id number] 00:00:00 00:00:00 Only Unassigned, NATTY 350.1.13.10 [place] [facility] 4.2.7.2.686 [id number] 009 2020-09-01 2020-09-01 Orders Doctor BASILIA 1.2.840.114 [id number] Univers 00:00:00 00:00:00 Only Unassigned, NATTY 350.1.13.10 ity of [place] [facility] 4.2.7.2.[id number] [facility] 009 Branch 2020-08-25 2020-08-25 Transition Tuan Peters 1.2.840.114 [id number] 00:00:00 00:00:00 of Care Ruchiliban Garciay 350.1.13.10 [place] 4.2.7.2.686 [id number] 2020-08-25 2020-08-25 Transition Tuan Peters 1.2.840.114 [id number] Univers 00:00:00 00:00:00 of Care Ruchi Garciay 350.1.13.10 it y of [place] 4.2.7.2.[address] [place] [id number] [facility] 403 Branch 2020-08-21 2020-08-23 [facility] Ayleen 1.2.840.114 [id number] 01:07:00 18:35:00 Encounter Kelly Amaya 350.1.13.10 [facility] 4.2.7.2.686 [id number] [facility] 2020-08-21 2020-08-23 [facility] Kelly [facility] Ayleen 1. 2.840.114 [id number] [facility] 01:07:00 18:35:00 Encounter Mukul Gallardo ErynKimmy Dorany 350.1.13. 10 ity of [facility] 4.2.7.2.686 Jeff as [phone] [address] Results Test Description Test Time Test Comments Results Result Comments Source POCT GLUCOSE (AUTOMATED) 2020-12-17 15:43:35 Test Item Value Reference Range Interpretation Comme nts POCT GLU (test code = 3904989859) 129 mg/dL 70-110 H Lab Interpretation (test code = 74362-5) Abnormal [facility] (NA, K, CL, CO2, GLUCOSE, BUN, CREATININE, CA)2020-12-17 11:45:07 Test Item Value Reference Range Interpretation Comments NA (test code = 137 mmol/L 135-145 1904813026) K (test code = 3.5 mmol/L 3.5-5.0 3573851839) CL (test code = 103 mmol/L 98-108 1321537827) CO2 TOTAL (test code = 26 mmol/L 23-31 1125469628) AGAP (test code = 2-16 4935235644) BUN (test code = 11 mg/dL 7-23 2208101930) GLUCOSE (test code = 175 mg/dL 70-110 H 2653113223) CREATININE (test code = 0.62 mg/dL 0.60-1.25 4610759308) CALCIUM (test code = 9.0 mg/dL 8.6-10.6 8700972020) eGFR Calculation mL/min/1.73m2 (Non-) (test code = 3371790507) eGFR Calculation mL/min/1.73m2 () (test code = 3872050130) JAMES (test code = JAMES) Association of [...] tests). Lab Interpretation Abnormal (test code = 55456-8) [facility] WITH [id number] 11:07:27 Test Item Value Reference Range Interpretation [...] RDW-SD (test code = 45.2 fL 38.5-51.6 27904-5) RDW-CV (test code = 16.9 % 12.1-15.4 H 788-0) PLT (test code = See_Comment H [Automated 777-3) message] The sy stem which generated this result transmitted reference range : 150 - 328 10*3/ ?L. The reference r torito was not used to interpret this result as normal/abnormal . MPV (test code = 8.1 fL 9.8-13.0 L 29100-4) NRBC/100 WBC (test See_Comment [Automat ed code = 5425296122) message] The system which generated this result transmitted reference range : 0.0 - 10.0 /100 WBCs. The refer ence range was not u sed to interpret th is result as normal/abnormal . NRBC x10^3 (test code <0.01 See_Comment [Auto mated = 5834364367) message] The s ystem which generated this result transmitted reference range : 10*3/?L. The reference range was not used to interpret this result as normal/abnormal . GRAN MAT (NEUT) % 72.8 % (test code = 770-8) IMM GRAN % (test code 0.60 % = 6169760650) LYMPH % (test code = 18.4 % 736-9) MONO % (test code = 5.7 % 5905-5) EOS % (test code = 1.8 % 713-8) BASO % (test code = 0.7 % 706-2) GRAN MAT x10^3(ANC) 8.23 10*3/uL 1.99-6.95 H (test code = 2818481465) IMM GRAN x10^3 (test 0.07 10*3/uL 0.00-0.06 H code = 2431202306) LYMPH x10^3 (test code 2.08 10*3/uL 1.09-3.23 = 731-0) MONO x10^3 (test code 0.65 10*3/uL 0.36-1.02 = 742-7) EOS x10^3 (test code = 0.20 10*3/uL 0.06-0.53 711-2) BASO x10^3 (test code 0.08 10*3/uL 0.01-0.09 = 704-7) Lab Interpretation Abnormal (test code = 64376-1) [facility]2020-12-17 06:03:38 Test Item Value Reference Range Interpretation Comments POCT GLU (test code = 7882414492) 75 mg/dL 70-110 Lab Interpretation (test code = Normal 70588-4) [facility] B6, [id number] 00:01:00 Test Item Value Reference Range Interpretation Comments VIT B6 (test code = 13.1 nmol/L 20.0-125.0 L INTERPRE TIVE 62349-9) INFORMATION: Vi tamin B6 (Pyridoxal 5-Phosphate) Pyridoxal 5'-phosphate me asured in a specimen collected follo wing an 8-hour or overnight fast accurately clara keene vitamin B6 nutritional sta tus. Non-fasting spe cimen concentration reflects recent vitamin intake. This test was develo ped and its perform ance characteristics determined by [facility] [facility] I t has not been cleare d or approved by the [place] Food and Drug Administration. This test was perfor med in a CLIA certifie d laboratory and is intended for cl inical purposes.Perfor med By: [address] [place] [address] [id number] Director: Namrata Klein MD Lab Interpretation Abnormal (test code = 41045-5) [facility] T[facility] FIB[facility] 2 VW [id number] 23:57:09 Tricompartmental knee joint osteoarthrosis.XR TIBIA FIBULA [...] No acute fracture or dislocation.IMPRESSIONTricompartmental knee joint osteoarthrosis.[facility] GLUCOSE (AUTOMATED) 2020-12-16 23:27:00 Test Item Value Reference Range Interpretation Comments POCT GLU (test code = 4114464499) 114 mg/dL 70-110 H Lab Interpretation (test code = Abnormal 76933-6) [facility] GLUCOSE (AUTOMATED)2020-12-16 20:12:00 Test Item Value Reference Range Interpretation Comments POCT GLU (test code = 8579406144) 105 mg/dL 70-110 Lab Interpretation (test code = Normal 05025-5) [facility] GLUCOSE (AUTOMATED)2020-12-16 14:44:00 Test Item Value Reference Range Interpretation Comments POCT GLU (test code = 3318705551) 153 mg/dL 70-110 H Lab Interpretation (test code = Abnormal 32011-4) [facility] (NA, K, CL, CO2, GLUCOSE, BUN, CREATININE, CA)2020-12-16 14:23:00 Test Item Value Reference Range Interpretation Comments NA (test code = 138 mmol/L 135-145 0798459787) K (test code = 3.4 mmol/L 3.5-5.0 L 0887522841) CL (test code = 100 mmol/L 98-108 5357247859) CO2 TOTAL (test code = 31 mmol/L 23-31 5157761462) AGAP (test code = 2-16 7996700123) BUN (test code = 11 mg/dL 7-23 1112820448) GLUCOSE (test code = 162 mg/dL 70-110 H 7560215195) CREATININE (test code = 0.64 mg/dL 0.60-1.25 6294578255) CALCIUM (test code = 8.9 mg/dL 8.6-10.6 8391326182) eGFR Calculation mL/min/1.73m2 (Non-) (test code = 4418789289) eGFR Calculation mL/min/1.73m2 () (test code = 2544670763) JAMES (test code = JAMES) Association of [...] tests). Lab Interpretation Abnormal (test code = 47111-2) [facility] WITH [id number] 14:05:00 Test Item Value Reference Range Interpretation [...] RDW-SD (test code = 45.4 fL 38.5-51.6 18933-3) RDW-CV (test code = 17.0 % 12.1-15.4 H 788-0) PLT (test code = See_Comment H [Automated 777-3) message] The sy stem which generated this result transmitted reference range : 150 - 328 10*3/ ?L. The reference r torito was not used to interpret this result as normal/abnormal . MPV (test code = 8.0 fL 9.8-13.0 L 39423-1) NRBC/100 WBC (test See_Comment [Automat ed code = 5367366849) message] The system which generated this result transmitted reference range : 0.0 - 10.0 /100 WBCs. The refer ence range was not u sed to interpret th is result as normal/abnormal . NRBC x10^3 (test code <0.01 See_Comment [Auto mated = 2596399222) message] The s ystem which generated this result transmitted reference range : 10*3/?L. The reference range was not used to interpret this result as normal/abnormal . GRAN MAT (NEUT) % 70.0 % (test code = 770-8) IMM GRAN % (test code 0.70 % = 2019935340) LYMPH % (test code = 20.5 % 736-9) MONO % (test code = 7.1 % 5905-5) EOS % (test code = 1.0 % 713-8) BASO % (test code = 0.7 % 706-2) GRAN MAT x10^3(ANC) 9.44 10*3/uL 1.99-6.95 H (test code = 2361810804) IMM GRAN x10^3 (test 0.09 10*3/uL 0.00-0.06 H code = 1168292324) LYMPH x10^3 (test code 2.76 10*3/uL 1.09-3.23 = 731-0) MONO x10^3 (test code 0.96 10*3/uL 0.36-1.02 = 742-7) EOS x10^3 (test code = 0.13 10*3/uL 0.06-0.53 711-2) BASO x10^3 (test code 0.10 10*3/uL 0.01-0.09 H = 704-7) Lab Interpretation Abnormal (test code = 53677-2) [facility] - Peripheral # [id number] 13:01:00 Test Item Value Reference Range Interpretation Comments Blood Culture-Aerobic No organisms No growth Previo us (test code = 08042-9) isolated prelim inary verified result was Culture In Progress on 12/11/2020 at 100 1 CSTPrevious preliminary verified result was No growth a t 24 hours on 12/12/2020 at 070 1 CSTPrevious preliminary verified result was No growth a t 48 hours on 12/13/2020 at 070 1 CSTPrevious preliminary verified result was No growth a t 72 hours on 12/14/2020 at 070 1 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 Blood No organisms No growth Previous Culture-Anaerobic isolated preliminar y (test code = 02048-4) verifi ed result was Culture In Progress on 12/11/2020 at 100 1 CSTPrevious preliminary verified result was No growth a t 24 hours on 12/12/2020 at 070 1 CSTPrevious preliminary verified result was No growth a t 48 hours on 12/13/2020 at 070 1 CSTPrevious preliminary verified result was No growth a t 72 hours on 12/14/2020 at 070 1 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 Lab Interpretation Normal (test code = 34281-4) [facility] Culture - Peripheral # [id number] 13:01:00 Test Item Value Reference Range Interpretation Comments Blood Culture-Aerobic No organisms No growth Previo us (test code = 06454-1) isolated prelim inary verified result was Culture In Progress on 12/11/2020 at 100 1 CSTPrevious preliminary verified result was No growth a t 24 hours on 12/12/2020 at 070 1 CSTPrevious preliminary verified result was No growth a t 48 hours on 12/13/2020 at 070 1 CSTPrevious preliminary verified result was No growth a t 72 hours on 12/14/2020 at 070 1 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 Blood No organisms No growth Previous Culture-Anaerobic isolated preliminar y (test code = 46141-3) verifi ed result was Culture In Progress on 12/11/2020 at 100 1 CSTPrevious preliminary verified result was No growth a t 24 hours on 12/12/2020 at 070 1 CSTPrevious preliminary verified result was No growth a t 48 hours on 12/13/2020 at 070 1 CSTPrevious preliminary verified result was No growth a t 72 hours on 12/14/2020 at 070 1 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 Lab Interpretation Normal (test code = 85678-6) [facility] GLUCOSE (AUTOMATED)2020-12-16 04:01:00 Test Item Value Reference Range Interpretation Comments POCT GLU (test code = 1283944302) 156 mg/dL 70-110 H Lab Interpretation (test code = Abnormal 97142-8) [facility] GLUCOSE (AUTOMATED)2020-12-16 00:24:00 Test Item Value Reference Range Interpretation Comments POCT GLU (test code = 8718006599) 115 mg/dL 70-110 H Lab Interpretation (test code = Abnormal 81035-9) [facility] CHEST PULMONARY [id number] 23:34:55No pulmonary emboli. No interval change in [...] stableappearance of intra and extrahepatic biliary ductal dilatation.[facility] GLUCOSE (AUTOMATED)2020-12-15 19:28:00 Test Item Value Reference Range Interpretation Comments POCT GLU (test code = 8094987466) 140 mg/dL 70-110 H Lab Interpretation (test code = Abnormal 58948-5) [facility]2021-[facility]-05 15:26:00 Test Item Value Reference Range Interpretation Comments MAGNESIUM (test code = 6212327709) 2.2 mg/dL 1.7-2.4 Lab Interpretation (test code = Normal 70371-0) [facility] GLUCOSE (AUTOMATED)2020-12-15 15:15:00 Test Item Value Reference Range Interpretation Comments POCT GLU (test code = 5011912765) 181 mg/dL 70-110 H Lab Interpretation (test code = Abnormal 72441-7) [facility] METABOLIC PANEL (NA, K, CL, CO2, GLUCOSE, BUN, CREATININE, CA)2020-12-15 13:07:00 Test Item Value Reference Range Interpretation Comments NA (test code = 136 mmol/L 135-145 4347176740) K (test code = 3.6 mmol/L 3.5-5.0 3552281563) CL (test code = 96 mmol/L 98-108 L 4662396884) CO2 TOTAL (test code = 29 mmol/L 23-31 5463916203) AGAP (test code = 2-16 1127478540) BUN (test code = 12 mg/dL 7-23 0466451134) GLUCOSE (test code = 183 mg/dL 70-110 H 2676373987) CREATININE (test code = 0.70 mg/dL 0.60-1.25 6421895876) CALCIUM (test code = 9.2 mg/dL 8.6-10.6 0608902204) eGFR Calculation mL/min/1.73m2 (Non-) (test code = 2904039990) eGFR Calculation mL/min/1.73m2 () (test code = 9555681814) JAMES (test code = JAMES) Association of [...] tests). Lab Interpretation Abnormal (test code = 07025-8) [facility] WITH [id number] 12:32:00 Test Item Value Reference Range Interpretation Comments WBC (test code = See_Comment H [Automated 5590-2) message] The system which generated this result transmit ronan reference range : 4.20 - 10.70 10*3/?L. The reference range was not used to interpret this result as normal/abnormal . RBC (test code = See_Comment H [Automated 479-8) message] The system which generated this result [...] RDW-SD (test code = 44.4 fL 38.5-51.6 90062-7) RDW-CV (test code = 17.7 % 12.1-15.4 H 788-0) PLT (test code = See_Comment H [Automated 777-3) message] The system which generated this result transmit ronan reference range : 150 - 328 10*3/ ?L. The reference range was not u sed to interpret th is result as normal/abnormal . MPV (test code = 8.1 fL 9.8-13.0 L 97099-6) NRBC/100 WBC (test See_Comment [Automat ed code = 6079901451) message] The system which generated this result transmit ronan reference range : 0.0 - 10.0 /100 WBCs. The reference range was not used to interpret this result as normal/abnormal . NRBC x10^3 (test code <0.01 See_Comment [Auto mated = 7841157415) message] The system which generated this result transmit ronan reference range : 10*3/?L. The reference range was not used to interpret this result as normal/abnormal . GRAN MAT (NEUT) % 74.5 % (test code = 770-8) IMM GRAN % (test code 0.70 % = 8450079032) LYMPH % (test code = 17.4 % 736-9) MONO % (test code = 6.8 % 5905-5) EOS % (test code = 0.2 % 713-8) BASO % (test code = 0.4 % 706-2) GRAN MAT x10^3(ANC) 11.99 10*3/uL 1.99-6.95 H (test code = 9110611733) IMM GRAN x10^3 (test 0.11 10*3/uL 0.00-0.06 H code = 5248313215) LYMPH x10^3 (test code 2.80 10*3/uL 1.09-3.23 = 731-0) MONO x10^3 (test code 1.10 10*3/uL 0.36-1.02 H = 742-7) EOS x10^3 (test code = 0.03 10*3/uL 0.06-0.53 L 711-2) BASO x10^3 (test code 0.06 10*3/uL 0.01-0.09 = 704-7) Lab Interpretation Abnormal (test code = 15610-8) [facility] GLUCOSE (AUTOMATED)2020-12-15 04:16:00 Test Item Value Reference Range Interpretation Comments POCT GLU (test code = 9011714613) 200 mg/dL 70-110 H Lab Interpretation (test code = Abnormal 72830-6) [facility] HospitalVITAMIN B1 (THIAMINE), WHOLE [id number] 00:30:00 Test Item Value Reference Range Interpretation Comments Vitamin B1, Whole 136 nmol/L 70-180 INTERPRETI VE INFORMATION: Blood (test code = Vitamin B 1, Whole Blood 65310-5) This assay júnior ures the concentration o f thiamine diphosphate (TD P), the primary active form of vitamin B1. Nick roximately 90 percent of v itamin B1 present in whol e blood is TDP. Thiamine a nd thiamine monoph osphate, which comprise the remaining 10 pe rcent, are not measured. T his test was developed a nd its performance characteristics determined by [facility]. I t has not been cleared or approved by the [place] Food and Drug Administration. This test was performed i n a CLIA certified labor atory and is intended for clinical purposes.Perfor med By: [facility] es[address] [place] [address] [id number] aboratory Director: Namrata Klein MD [facility] GLUCOSE (AUTOMATED)2020-12-14 23:35:00 Test Item Value Reference Range Interpretation Comments POCT GLU (test code = 2416817907) 151 mg/dL 70-110 H Lab Interpretation (test code = Abnormal 85364-9) [facility] GLUCOSE (AUTOMATED)2020-12-14 19:19:00 Test Item Value Reference Range Interpretation Comments POCT GLU (test code = 5339519017) 193 mg/dL 70-110 H Lab Interpretation (test code = Abnormal 74154-5) [facility] GLUCOSE (AUTOMATED)2020-12-14 15:22:00 Test Item Value Reference Range Interpretation Comments POCT GLU (test code = 2120514063) 221 mg/dL 70-110 H Lab Interpretation (test code = Abnormal 09470-3) [facility] GLUCOSE (AUTOMATED)2020-12-14 02:37:00 Test Item Value Reference Range Interpretation Comments POCT GLU (test code = 3970628213) 210 mg/dL 70-110 H Lab Interpretation (test code = Abnormal 90045-6) [facility] GLUCOSE (AUTOMATED)2020-12-13 23:33:00 Test Item Value Reference Range Interpretation Comments POCT GLU (test code = 4550272694) 182 mg/dL 70-110 H Lab Interpretation (test code = Abnormal 96496-7) [facility] GLUCOSE (AUTOMATED)2020-12-13 18:09:00 Test Item Value Reference Range Interpretation Comments POCT GLU (test code = 2359037246) 150 mg/dL 70-110 H Lab Interpretation (test code = Abnormal 23611-0) [facility] METABOLIC PANEL (NA, K, CL, CO2, GLUCOSE, BUN, CREATININE, CA)2020-12-13 16:27:00 Test Item Value Reference Range Interpretation Comments NA (test code = 136 mmol/L 135-145 1350144619) K (test code = 3.7 mmol/L 3.5-5.0 2741656781) CL (test code = 96 mmol/L 98-108 L 5060007803) CO2 TOTAL (test code = 29 mmol/L 23-31 9015756700) AGAP (test code = 2-16 6099348268) BUN (test code = 6 mg/dL 7-23 L 5653115869) GLUCOSE (test code = 212 mg/dL 70-110 H 6290919155) CREATININE (test code = 0.61 mg/dL 0.60-1.25 7257012604) CALCIUM (test code = 9.5 mg/dL 8.6-10.6 3261044242) eGFR Calculation mL/min/1.73m2 (Non-) (test code = 3068449239) eGFR Calculation mL/min/1.73m2 () (test code = 5622001406) JAMES (test code = JAMES) Association of [...] tests). Lab Interpretation Abnormal (test code = 96239-4) [facility] WITH [id number] 16:10:00 Test Item Value Reference Range Interpretation Comments WBC (test code = See_Comment H [Automated 6556-2) message] The sy stem which generated this result transmitted reference range : 4.20 - 10.70 10*3/?L. The reference range was not used to interpret this result as normal/abnormal . RBC (test code = See_Comment H [Automated 319-8) message] The sy stem which [...] RDW-SD (test code = 43.3 fL 38.5-51.6 70462-2) RDW-CV (test code = 16.2 % 12.1-15.4 H 788-0) PLT (test code = See_Comment H [Automated 777-3) message] The sy stem which generated this result transmitted reference range : 150 - 328 10*3/ ?L. The reference r torito was not used to interpret this result as normal/abnormal . MPV (test code = 8.2 fL 9.8-13.0 L 15049-3) NRBC/100 WBC (test See_Comment [Automat ed code = 1821537642) message] The system which generated this result transmitted reference range : 0.0 - 10.0 /100 WBCs. The refer ence range was not u sed to interpret th is result as normal/abnormal . NRBC x10^3 (test code <0.01 See_Comment [Auto mated = 2336473388) message] The s ystem which generated this result transmitted reference range : 10*3/?L. The reference range was not used to interpret this result as normal/abnormal . GRAN MAT (NEUT) % 86.2 % (test code = 770-8) IMM GRAN % (test code 0.70 % = 2547899823) LYMPH % (test code = 10.2 % 736-9) MONO % (test code = 2.5 % 5905-5) EOS % (test code = 0.1 % 713-8) BASO % (test code = 0.3 % 706-2) GRAN MAT x10^3(ANC) 9.61 10*3/uL 1.99-6.95 H (test code = 1656126406) IMM GRAN x10^3 (test 0.08 10*3/uL 0.00-0.06 H code = 7508174908) LYMPH x10^3 (test code 1.14 10*3/uL 1.09-3.23 = 731-0) MONO x10^3 (test code 0.28 10*3/uL 0.36-1.02 L = 742-7) EOS x10^3 (test code = <0.03 0.06-0.53 L 711-2) BASO x10^3 (test code 0.03 10*3/uL 0.01-0.09 = 704-7) Lab Interpretation Abnormal (test code = 96820-1) [facility]2020-12-13 14:16:00 Test Item Value Reference Range Interpretation Comments POCT GLU (test code = 9714083134) 236 mg/dL 70-110 H Lab Interpretation (test code = Abnormal 91141-2) [facility] ONLY COVID [id number] 04:58:00COVID DMT InterpretationInterpretation/Recommendations: Molecular NAAT Tests for [...] COVID-19 testing the patient has had at [facility], including molecular NAAT testing (more commonly known as PCR testing and Rapid ID Now testing) and antibody testing. It does not take into account any testingthat a patient has had outside of the [facility] medical record. [facility] LABORATORY SERVICESCOVID FwiahguHIUB-DkU-8 Rapid ID NOW (no units) ? ? Date ? Value ? 12/11/2020 ? Not Detected ? ? ? 11/16/2020 ? Not Detected ? ? ? 08/21/2020 ? Not Detected ? [facility] 2020-12-13 03:11:00 Test Item Value Reference Range Interpretation Comments POCT GLU (test code = 0179347681) 171 mg/dL 70-110 H Lab Interpretation (test code = Abnormal 87505-9) [facility] GLUCOSE (AUTOMATED)2020-12-13 00:00:00 Test Item Value Reference Range Interpretation Comments POCT GLU (test code = 5939385460) 118 mg/dL 70-110 H Lab Interpretation (test code = Abnormal 55779-7) [facility] GLUCOSE (AUTOMATED)2020-12-12 20:29:00 Test Item Value Reference Range Interpretation Comments POCT GLU (test code = 1249323445) 173 mg/dL 70-110 H Lab Interpretation (test code = Abnormal 29224-3) [facility] HospitalUS ABDOMEN [id number] 19:56:17 1. ?Hepatic steatosis. However, limited evaluation [...] main portal veinwasevaluated with color Doppler imaging. [employer] images were obtainedfor the record. COMPARISON: [...] portal vein wasevaluated with color Doppler imaging. [employer] Machine Operator images wereobtainedfor the record.COMPARISON: Ultrasound abdomen 11/17/2028. [...] agree with the abovereport.[facility]2020-12-12 19:24:00 Test Item Value Reference Range Interpretation Comments POCT GLU (test code = 7701432104) 230 mg/dL 70-110 H Lab Interpretation (test code = Abnormal 60872-9) [facility]XR CHEST 1 [id number] 15:16:46 Low lung volumes with mild perihilar [...] reviewed this study and agree with theabove report.[facility])2020-12-12 14:34:00 Test Item Value Reference Range Interpretation Comments POCT GLU (test code = 9253176895) 225 mg/dL 70-110 H Lab Interpretation (test code = Abnormal 43709-6) [facility] HospitalURINE [id number] 13:28:00 Test Item Value Reference Range Interpretation Comments URINE CULTURE (test < 10,000 CFU/mL mixed code = 630-4) aerobic organisms - suggests endogenous microbial contamination [facility]Basic [facility] Panel (NA, K, CL, CO2, GLUCOSE, BUN, CREATININE, CA)2020-12-12 10:05:00 Test Item Value Reference Range Interpretation Comments NA (test code = 136 mmol/L 135-145 0351615663) K (test code = 3.5 mmol/L 3.5-5.0 5813876139) CL (test code = 100 mmol/L 98-108 1222764859) CO2 TOTAL (test code = 31 mmol/L 23-31 5406746335) AGAP (test code = 2-16 8602081972) BUN (test code = 7 mg/dL 7-23 9983870042) GLUCOSE (test code = 259 mg/dL 70-110 H 1942458852) CREATININE (test code = 0.63 mg/dL 0.60-1.25 9939032437) CALCIUM (test code = 8.5 mg/dL 8.6-10.6 L 8180570497) eGFR Calculation mL/min/1.73m2 (Non-) (test code = 8194579478) eGFR Calculation mL/min/1.73m2 () (test code = 3121245559) JAMES (test code = JAMES) Association of [...] tests). Lab Interpretation Abnormal (test code = 84244-8) [facility] HospitalMagnesium [id number] 10:05:00 Test Item Value Reference Range Interpretation Comments MAGNESIUM (test code = 4654288587) 1.9 mg/dL 1.7-2.4 Lab Interpretation (test code = Normal 50904-8) [facility] with [id number] 09:48:00 Test Item Value Reference Range Interpretation Comments WBC (test code = See_Comment [Automated 3054-2) message] The sy stem which generated this result transmitted reference range : 4.20 - 10.70 10*3/?L. The reference range was not used to interpret this result as normal/abnormal . RBC (test code = See_Comment [Automated 847-6) message] The sy stem which generated this [...] RDW-SD (test code = 46.0 fL 38.5-51.6 87353-2) RDW-CV (test code = 16.1 % 12.1-15.4 H 788-0) PLT (test code = See_Comment H [Automated 777-3) message] The sy stem which generated this result transmitted reference range : 150 - 328 10*3/ ?L. The reference r torito was not used to interpret this result as normal/abnormal . MPV (test code = 8.6 fL 9.8-13.0 L 59495-9) NRBC/100 WBC (test See_Comment [Automat ed code = 7515116802) message] The system which generated this result transmitted reference range : 0.0 - 10.0 /100 WBCs. The refer ence range was not u sed to interpret th is result as normal/abnormal . NRBC x10^3 (test code <0.01 See_Comment [Auto mated = 4151937496) message] The s ystem which generated this result transmitted reference range : 10*3/?L. The reference range was not used to interpret this result as normal/abnormal . GRAN MAT (NEUT) % 70.2 % (test code = 770-8) IMM GRAN % (test code 0.30 % = 2866418916) LYMPH % (test code = 18.8 % 736-9) MONO % (test code = 5.0 % 5905-5) EOS % (test code = 5.2 % 713-8) BASO % (test code = 0.5 % 706-2) GRAN MAT x10^3(ANC) 6.05 10*3/uL 1.99-6.95 (test code = 2883839751) IMM GRAN x10^3 (test 0.03 10*3/uL 0.00-0.06 code = 6280399369) LYMPH x10^3 (test code 1.62 10*3/uL 1.09-3.23 = 731-0) MONO x10^3 (test code 0.43 10*3/uL 0.36-1.02 = 742-7) EOS x10^3 (test code = 0.45 10*3/uL 0.06-0.53 711-2) BASO x10^3 (test code 0.04 10*3/uL 0.01-0.09 = 704-7) Lab Interpretation Abnormal (test code = 82114-0) [facility] GLUCOSE (AUTOMATED)2020-12-12 03:42:00 Test Item Value Reference Range Interpretation Comments POCT GLU (test code = 196 mg/dL 70-110 H Notifi ed Provider 1938848433) Lab Interpretation (test Abnormal code = 73893-5) [facility] HospitalFOLATE2021-03-02 02:24:00 Test Item Value Reference Range Interpretation Comments FOLATE SER (test code = 7091125609) 5.8 ng/mL 3.0-20.0 Lab Interpretation (test code = Normal 99906-1) [facility] HospitalVITAMIN B12, [id number] 00:55:00 Test Item Value Reference Range Interpretation Comments VIT B12 (test code = 844 pg/mL 240-930 2129642106) JAMES (test code = JAMES) Biotin has been reported to cause a positive bias, interpret results relative to patient's use of biotin. Lab Interpretation (test Normal code = 83074-1) [facility] GLUCOSE (AUTOMATED)2020-12-12 00:14:00 Test Item Value Reference Range Interpretation Comments POCT GLU (test code = 2258062490) 164 mg/dL 70-110 H Lab Interpretation (test code = Abnormal 33942-9) [facility] HospitalCREATINE [id number] 23:42:00 Test Item Value Reference Range Interpretation Comments CK (test code = 7470241411) <20 33-194 L Lab Interpretation (test code = Abnormal 57778-2) [facility] HospitalTHYROID STIMULATING [id number] 23:17:00 Test Item Value Reference Range Interpretation Comments TSH (test code = See_Comment Biotin has been 9257063548) reported to cau se a negative bias, interpret resul ts relative to johnny bills's use of biotin. [Automated mess age] The system Hailo generated this result transmitted ref erence range: 0.45 - 4 .70 mIU/L. The refe rence range was not u sed to interpret this result as normal/abnor mal. Lab Interpretation (test Normal code = 84927-8) [facility] HospitalXR HIPS 3 VW [id number] 21:41:53No appreciable fracture lines. RL: 6200 ICAL [...] osseous erosions.IMPRESSIONNo appreciable fracture lines.RL: 6200 [facility]PROCALCITONIN2021-[facility]-01 20:00:00 Test Item Value Reference Range Interpretation Comments Procalcitonin (test 0.13 ng/mL <0.07 H code = 2633905748) JAMES (test code = JAMES) INTERPRETATION OF [...] lung abscess/empyema. For further information please refer to:[email or web address] Lab Interpretation Abnormal (test code = 16540-4) [facility] ([facility])2020-12-11 19:07:00 Test Item Value Reference Range Interpretation Comments POCT GLU (test code = 7715003557) 274 mg/dL 70-110 H Lab Interpretation (test code = Abnormal 08540-9) [facility] HospitalMAGNESIUM2021-03-01 18:31:00 Test Item Value Reference Range Interpretation Comments MAGNESIUM (test code = 4373046337) 1.9 mg/dL 1.7-2.4 Lab Interpretation (test code = Normal 53855-3) [facility] [id number] 18:31:00 Test Item Value Reference Range Interpretation Comments FERRITIN (test code = 178.0 ng/mL 18.0-464.0 8399805014) JAMES (test code = JAMES) Biotin has been reported to cause a negative bias, interpret results relative to patient's use of biotin. Lab Interpretation (test Normal code = 04064-7) [facility] HEAD WO [id number] 14:36:47 No acute intracranial abnormality. Dilated ventricles [...] Comments APPEARANCE (test code = Clear Clear 6631175149) COLOR (test code = Yellow Yellow 8859657644) PH (test code = 4.8-8.0 2755788945) SP GRAVITY (test code = 1.003-1.030 0453994700) GLU U QUAL (test code = 500 mg/dL Normal A 2163568138) BLOOD (test code = Negative Negative 3671879323) KETONES (test code = 5 mg/dL Negative A 7117741187) PROTEIN (test code = Negative Negative 2887-8) UROBILIN (test code = Normal Normal 1202279440) BILIRUBIN (test code = Negative Negative 7541151658) NITRITE (test code = Negative Negative 0412845330) LEUK RYAN (test code = Negative Negative 5240283736) RBC/HPF (test code = See_Comment [Autom ated message] 2639574743) The system Hailo generated this result transmit ronan reference range : 0 - 3 HPF. The refe rence range was not u sed to interpret th is result as normal/abnormal . WBC/HPF (test code = See_Comment [Autom ated message] 3674124547) The system [employer] generated this result transmit ronan reference range : 0 - 5 HPF. The refe rence range was not u sed to interpret th is result as normal/abnormal . BACTERIA (test code = Negative Negative 1027567171) MUCOUS (test code = Slight Negative LPF A 2639751599) SQ EPITH (test code = HPF 4884918158) Lab Interpretation (test Abnormal code = 21878-5) [facility] (ID NOW RAPID TESTING)2020-12-11 13:10:00 Test Item Value Reference Range Interpretation Comments SARS-CoV-2 Rapid ID NOW Not Detected Not Detected (test code = 38977-3) JAMES (test code = JAMES) ID NOW COVID-19 Assay is an isothermal nucleic acid amplification test intended for the qualitative detection of nucleic acid from SARS-CoV-2 viral RNA in nasopharyngeal (TRACING LATHE SET UP OPERATOR) specimens. It is used under Emergency [...] indicated. Lab Interpretation Normal (test code = 38072-1) [facility]. METABOLIC PANEL (02881)2020-12-11 12:29:00 Test Item Value Reference Range Interpretation Comments NA (test code = 136 mmol/L 135-145 9319103283) K (test code = 3.5 mmol/L 3.5-5.0 5631499343) CL (test code = 95 mmol/L 98-108 L 7316839861) CO2 TOTAL (test code = 35 mmol/L 23-31 H 1909985762) AGAP (test code = 2-16 5012020251) BUN (test code = 9 mg/dL 7-23 7663483175) GLUCOSE (test code = 329 mg/dL 70-110 H 0425161273) CREATININE (test code = 0.72 mg/dL 0.60-1.25 7389429051) TOTAL BILI (test code = 0.6 mg/dL 0.1-1.0 6526208396) CALCIUM (test code = 9.0 mg/dL 8.6-10.6 6389574559) T PROTEIN (test code = 6.8 g/dL 6.3-8.2 3995098034) ALBUMIN (test code = 3.8 g/dL 3.5-5.0 8514442901) ALK PHOS (test code = 288 U/L 34-122 H 6989150096) ALTv (test code = 46 U/L 5-50 1742-6) AST(SGOT) (test code = 38 U/L 13-40 6401678677) eGFR Calculation mL/min/1.73m2 (Non-) (test code = 7778277603) eGFR Calculation mL/min/1.73m2 () (test code = 8423884295) JAMES (test code = JAMES) Association of [...] tests). Lab Interpretation Abnormal (test code = 77720-5) [facility] HospitalLactic Acid Whole [id number] 12:23:00 Test Item Value Reference Range Interpretation Comments LACTIC ACID (test code = 2.09 mmol/L 0.50-2.20 0600885013) Lab Interpretation (test code = Normal 56394-3) [facility] WITH [id number] 12:17:00 Test Item Value Reference Range Interpretation [...] RDW-SD (test code = 44.9 fL 38.5-51.6 48987-6) RDW-CV (test code = 15.9 % 12.1-15.4 H 788-0) PLT (test code = See_Comment H [Automated 777-3) message] The sy stem which generated this result transmitted reference range : 150 - 328 10*3/ ?L. The reference r torito was not used to interpret this result as normal/abnormal . MPV (test code = 8.3 fL 9.8-13.0 L 11100-7) NRBC/100 WBC (test See_Comment [Automat ed code = 9800993664) message] The system which generated this result transmitted reference range : 0.0 - 10.0 /100 WBCs. The refer ence range was not u sed to interpret th is result as normal/abnormal . NRBC x10^3 (test code <0.01 See_Comment [Auto mated = 2853948622) message] The s ystem which generated this result transmitted reference range : 10*3/?L. The reference range was not used to interpret this result as normal/abnormal . GRAN MAT (NEUT) % 77.9 % (test code = 770-8) IMM GRAN % (test code 0.50 % = 1201074771) LYMPH % (test code = 12.2 % 736-9) MONO % (test code = 5.2 % 5905-5) EOS % (test code = 3.7 % 713-8) BASO % (test code = 0.5 % 706-2) GRAN MAT x10^3(ANC) 9.57 10*3/uL 1.99-6.95 H (test code = 8620796721) IMM GRAN x10^3 (test 0.06 10*3/uL 0.00-0.06 code = 9564973809) LYMPH x10^3 (test code 1.50 10*3/uL 1.09-3.23 = 731-0) MONO x10^3 (test code 0.64 10*3/uL 0.36-1.02 = 742-7) EOS x10^3 (test code = 0.46 10*3/uL 0.06-0.53 711-2) BASO x10^3 (test code 0.06 10*3/uL 0.01-0.09 = 704-7) Lab Interpretation Abnormal (test code = 83449-5) [facility] ONLY COVID [id number] 18:43:00COVID DMT InterpretationInterpretation/Recommendations: Molecular NAAT Test Results [...] a nasopharyngeal sample, there is approximately a mmj-tk-dwlgh chance that the patient was infected and [...] based upon aggregate data pooled from the [facility] medical recordincluding both current and prior COVID-19 related testing results for the following tests [facility]:A. Tests for the Identification of SARS-CoV-2 RNA:SARS-CoV-2 PCR assays including Moore Aptima, Moore Fusion, Barrett RealTime, and CostumeWorks Xpert Xpress. SARS-CoV-2 Rapid ID NOW by the ID NOW assay. ? B. Tests for the Identification of SARS-CoV-2 Antibodies: Chemiluminescent immunoassays including Access SARS-CoV-2 IgM (DXI 600), RossoliniS Ndrn-AFDT-MgV-2 IgG (Vitros 5600 and Vitros 3600), and Barrett SARS-CoV-2 IgG (WASTEWATER SUPERINTENDENT I System). These interpretation comments assume that only the above testing was utilized and that the approved acceptable specimen type(s) were used for a given test. These interpretations are autopopulated into [employer] based on computerized algorithms matching an interpretation code number to the patient's set of test results. While a clinical pathologist evaluates the combinations for clinical accuracy, clinical correlation is recommended as it may not take into account very remote prior testing. Furthermore, it does not consider testing a patient may have had outside of the [facility] system. Additionally, it should be noted that the computerized algorithm treats the results for PCR testing and Rapid ID NOW testing (also PCR) synonymously, and thus, refers to both testing methodologies as PCR tests. Given that the sensitivity of [facility]'s Rapid ID NOW testing platform is analogous [...] pathogen panel may be beneficialin this setting. [facility] LABORATORY SERVICESCOVID UjhvcdcZYRW-LxL-0 Rapid ID NOW (no units) ? ? Date ? Value ? 08/21/2020 ? Not Detected ? [facility]2020-08-23 18:25:00 Test Item Value Reference Range Interpretation Comments POCT GLU (test code = 9039326294) 297 mg/dL 70-110 H Lab Interpretation (test code = Abnormal 45930-1) [facility] GLUCOSE (AUTOMATED)2020-08-23 14:25:00 Test Item Value Reference Range Interpretation Comments POCT GLU (test code = 1663464525) 181 mg/dL 70-110 H Lab Interpretation (test code = Abnormal 00133-5) [facility] (NA, K, CL, CO2, GLUCOSE, BUN, CREATININE, CA)2020-08-23 11:45:00 Test Item Value Reference Range Interpretation Comments NA (test code = 132 mmol/L 135-145 L 2977625942) K (test code = 4.0 mmol/L 3.5-5 8149722625) CL (test code = 96 mmol/L 98-108 L 7986093786) CO2 TOTAL (test code = 33 mmol/L 23-31 H 8890719074) AGAP (test code = 2-16 7248510054) BUN (test code = 9 mg/dL 7-23 0547087563) GLUCOSE (test code = 176 mg/dL 70-110 H 9172193224) CREATININE (test code = 0.66 mg/dL 0.6-1.25 4538931863) CALCIUM (test code = 8.5 mg/dL 8.6-10.6 L 0445543549) eGFR Calculation mL/min/1.73m2 (Non-) (test code = 2075516498) eGFR Calculation mL/min/1.73m2 () (test code = 6301059456) JAMES (test code = JAMES) Association of [...] tests). Lab Interpretation Abnormal (test code = 00963-7) [facility] HospitalMagnesium [id number] 11:45:00 Test Item Value Reference Range Interpretation Comments MAGNESIUM (test code = 0272992606) 2.0 mg/dL 1.7-2.4 Lab Interpretation (test code = Normal 53767-0) [facility] HospitalCB with Ibjkakqnxvqq4154-27-23 11:38:00 Test Item Value Reference Range Interpretation Comments WBC (test code = See_Comment [Automated 7190-2) message] The sy stem which generated this result transmitted reference range : 4.20 - 10.70 10*3/?L. The reference range was not used to interpret this result as normal/abnormal . RBC (test code = See_Comment [Automated 379-8) message] The sy stem which generated this [...] RDW-SD (test code = 41.8 fL 38.5-51.6 44166-3) RDW-CV (test code = 14.3 % 12.1-15.4 788-0) PLT (test code = See_Comment H [Automated 777-3) message] The sy stem which generated this result transmitted reference range : 150 - 328 10*3/ ?L. The reference r torito was not used to interpret this result as normal/abnormal . MPV (test code = 8.0 fL 9.8-13 L 91085-4) NRBC/100 WBC (test See_Comment [Automat ed code = 0544108996) message] The system which generated this result transmitted reference range : 0.0 - 10.0 /100 WBCs. The refer ence range was not u sed to interpret th is result as normal/abnormal . NRBC x10^3 (test code <0.01 See_Comment [Auto mated = 6862969995) message] The s ystem which generated this result transmitted reference range : 10*3/?L. The reference range was not used to interpret this result as normal/abnormal . GRAN MAT (NEUT) % 61.5 % (test code = 770-8) IMM GRAN % (test code 2.00 % = 2157266428) LYMPH % (test code = 25.5 % 736-9) MONO % (test code = 6.3 % 5905-5) EOS % (test code = 3.7 % 713-8) BASO % (test code = 1.0 % 706-2) GRAN MAT x10^3(ANC) 5.29 10*3/uL 1.99-6.95 (test code = 6529265724) IMM GRAN x10^3 (test 0.17 10*3/uL 0-0.06 H code = 3019201925) LYMPH x10^3 (test code 2.19 10*3/uL 1.09-3.23 = 731-0) MONO x10^3 (test code 0.54 10*3/uL 0.36-1.02 = 742-7) EOS x10^3 (test code = 0.32 10*3/uL 0.06-0.53 711-2) BASO x10^3 (test code 0.09 10*3/uL 0.01-0.09 = 704-7) Lab Interpretation Abnormal (test code = 54591-8) [facility] GLUCOSE (AUTOMATED)2020-08-23 10:22:00 Test Item Value Reference Range Interpretation Comments POCT GLU (test code = 2314669397) 164 mg/dL 70-110 H Lab Interpretation (test code = Abnormal 38944-6) [facility] GLUCOSE (AUTOMATED)2020-08-23 05:56:00 Test Item Value Reference Range Interpretation Comments POCT GLU (test code = 9271642131) 242 mg/dL 70-110 H Lab Interpretation (test code = Abnormal 47093-2) [facility] GLUCOSE (AUTOMATED)2020-08-23 03:02:00 Test Item Value Reference Range Interpretation Comments POCT GLU (test code = 2938645838) 210 mg/dL 70-110 H Lab Interpretation (test code = Abnormal 40191-6) [facility] GLUCOSE (AUTOMATED)2020-08-22 23:40:00 Test Item Value Reference Range Interpretation Comments POCT GLU (test code = 1442139177) 267 mg/dL 70-110 H Lab Interpretation (test code = Abnormal 72831-9) [facility] GLUCOSE (AUTOMATED)2020-08-22 19:08:00 Test Item Value Reference Range Interpretation Comments POCT GLU (test code = 4368384288) 191 mg/dL 70-110 H Lab Interpretation (test code = Abnormal 05369-4) [facility] GLUCOSE (AUTOMATED)2020-08-22 13:50:00 Test Item Value Reference Range Interpretation Comments POCT GLU (test code = 2989863340) 174 mg/dL 70-110 H Lab Interpretation (test code = Abnormal 68642-5) [facility] HospitalURINE [id number] 12:59:00 Test Item Value Reference Range Interpretation Comments URINE CULTURE (test No aerobic growth (< code = 630-4) 1000 CFU/mL) [facility] HospitalCBC with Rathevswlhmp4201-91-64 11:28:00 Test Item Value Reference Range Interpretation Comments WBC (test code = See_Comment [Automated 7390-2) message] The sy stem which [...] RDW-SD (test code = 42.5 fL 38.5-51.6 41180-3) RDW-CV (test code = 14.5 % 12.1-15.4 788-0) PLT (test code = See_Comment H [Automated 777-3) message] The sy stem which generated this result transmitted reference range : 150 - 328 10*3/ ?L. The reference r torito was not used to interpret this result as normal/abnormal . MPV (test code = 8.0 fL 9.8-13 L 36225-3) NRBC/100 WBC (test See_Comment [Automat ed code = 7108380477) message] The system which generated this result transmitted reference range : 0.0 - 10.0 /100 WBCs. The refer ence range was not u sed to interpret th is result as normal/abnormal . NRBC x10^3 (test code <0.01 See_Comment [Auto mated = 3018288220) message] The s ystem which generated this result transmitted reference range : 10*3/?L. The reference range was not used to interpret this result as normal/abnormal . GRAN MAT (NEUT) % 69.1 % (test code = 770-8) IMM GRAN % (test code 2.20 % = 2131638385) LYMPH % (test code = 20.9 % 736-9) MONO % (test code = 5.8 % 5905-5) EOS % (test code = 1.0 % 713-8) BASO % (test code = 1.0 % 706-2) GRAN MAT x10^3(ANC) 6.51 10*3/uL 1.99-6.95 (test code = 5184154329) IMM GRAN x10^3 (test 0.21 10*3/uL 0-0.06 H code = 8244587903) LYMPH x10^3 (test code 1.97 10*3/uL 1.09-3.23 = 731-0) MONO x10^3 (test code 0.55 10*3/uL 0.36-1.02 = 742-7) EOS x10^3 (test code = 0.09 10*3/uL 0.06-0.53 711-2) BASO x10^3 (test code 0.09 10*3/uL 0.01-0.09 = 704-7) BASO STIPPLING (test Present A code = 703-9) BANDS (test code = Increased A 8171160147) TOXIC CHANGES (test Present A code = 803-7) Lab Interpretation Abnormal (test code = 44348-0) [facility] (NA, K, CL, CO2, GLUCOSE, BUN, CREATININE, CA)2020-08-22 11:12:00 Test Item Value Reference Range Interpretation Comments NA (test code = 135 mmol/L 135-145 4466957408) K (test code = 3.6 mmol/L 3.5-5 4813838385) CL (test code = 99 mmol/L 98-108 1024697562) CO2 TOTAL (test code = 31 mmol/L 23-31 8802507539) AGAP (test code = 2-16 6690821123) BUN (test code = 9 mg/dL 7-23 2510848145) GLUCOSE (test code = 198 mg/dL 70-110 H 9527127607) CREATININE (test code = 0.72 mg/dL 0.6-1.25 1346219400) CALCIUM (test code = 8.3 mg/dL 8.6-10.6 L 0524641438) eGFR Calculation mL/min/1.73m2 (Non-) (test code = 0369966979) eGFR Calculation mL/min/1.73m2 () (test code = 0081084579) JAMES (test code = JAMES) Association of [...] tests). Lab Interpretation Abnormal (test code = 58477-5) [facility] HospitalMagnesium [id number] 11:12:00 Test Item Value Reference Range Interpretation Comments MAGNESIUM (test code = 0059767589) 2.0 mg/dL 1.7-2.4 Lab Interpretation (test code = Normal 92152-5) [facility] HospitalLipid Panel (Total Cholesterol, Triglycerides, HDL) - Maildeg6641-60-40 11:12:00 Test Item Value Reference Range Interpretation Comments CHOL (test code = 155 mg/dL 120-200 1544206053) HDL (test code = 42 mg/dL >40 0600872179) HDLC RATIO (test code = See_Comment [Au tomated message] 1170032030) The system Hailo generated this result transmit ronan reference range : <=5.0. The refe rence range was not u sed to interpret th is result as normal/abnormal . TRIG (test code = 186 mg/dL 30-170 H 6938214626) LDL CHOL (test code = 76 mg/dL See_Comment [Auto mated message] 96407-5) The system Hailo generated this result transmit ronan reference range : <=160. The refe rence range was not u sed to interpret th is result as normal/abnormal . VLDL (test code = 37 mg/dL 5-60 5748934376) Lab Interpretation (test Abnormal code = 36269-2) [facility] HospitalHEPATIC FUNCTION PANEL (33299) (ALB,T.PRO,BILI T,BU/BC,ALT,AST,ALK PHOS)2020-08-22 11:12:00 Test Item Value Reference Range Interpretation Comments TOTAL BILI (test code = 9841888593) 0.6 mg/dL 0.1-1.1 BILI UNCON (test code = 2875480988) 0.2 mg/dL 0.1-1.1 BILI CONJ (test code = 5684196012) 0.0 mg/dL 0-0.3 T PROTEIN (test code = 5655042174) 6.0 g/dL 6.3-8.2 L ALBUMIN (test code = 9369230856) 2.8 g/dL 3.5-5 L ALK PHOS (test code = 6199243491) 222 U/L 34-122 H ALTv (test code = 1742-6) 27 U/L 5-50 AST(SGOT) (test code = 2398184587) 30 U/L 13-40 Lab Interpretation (test code = Abnormal 99080-4) [facility] GLUCOSE (AUTOMATED)2020-08-22 10:11:00 Test Item Value Reference Range Interpretation Comments POCT GLU (test code = 7013301983) 196 mg/dL 70-110 H Lab Interpretation (test code = Abnormal 57610-0) [facility] GLUCOSE (AUTOMATED)2020-08-22 07:15:00 Test Item Value Reference Range Interpretation Comments POCT GLU (test code = 3783180572) 183 mg/dL 70-110 H Lab Interpretation (test code = Abnormal 17396-4) [facility] GLUCOSE (AUTOMATED)2020-08-22 02:30:00 Test Item Value Reference Range Interpretation Comments POCT GLU (test code = 4749576403) 295 mg/dL 70-110 H Lab Interpretation (test code = Abnormal 25822-7) [facility] GLUCOSE (AUTOMATED)2020-08-21 23:46:00 Test Item Value Reference Range Interpretation Comments POCT GLU (test code = 8303061139) 258 mg/dL 70-110 H Lab Interpretation (test code = Abnormal 97040-5) [facility] HospitalC-REACTIVE [id number] 18:50:00 Test Item Value Reference Range Interpretation Comments CRP (test code = 6826514667) 15.5 mg/dL <0.8 H Lab Interpretation (test code = Abnormal 40414-6) [facility] HospitalPO[facility] ([facility]ATED)2020-08-21 18:21:00 Test Item Value Reference Range Interpretation Comments POCT GLU (test code = 6648670732) 297 mg/dL 70-110 H Lab Interpretation (test code = Abnormal 20281-8) [facility] HospitalETHANOL2020-11-09 16:24:00 Test Item Value Reference Range Interpretation Comments ALCOHOL (test code = <10 mg/dL 3402932659) JAMES (test code = Toxic Greater than or JAMES) equal to 80 mg/dL. NOTE: Whole blood values are approximately 10% to 15% lower than serum and plasma. [facility] HospitalGAL/CLC ONLY - URINE DRUG (IMMUNOASSAY) - 4 ER [id number] 15:36:00 Test Item Value Reference Range Interpretation Comments AMPHET (test code = Negative Negative 3362872777) Cocaine Metabolite (test Negative Negative code = 9836644741) OPIATES (test code = Presumptive Positive Negative A 9129116930) THC (test code = Negative Negative 9652041432) JAMES (test code = JAMES) Urine Drug Cutoff Ranges Amphetamine: ? 1,000 ng/mLCocaine: ? 150 ng/mLOpiates: ? 300 ng/mLCannabinoids: ?50 ng/mL The results are to be used only for medical (i.e., treatment) purposes. Unconfirmed screening results must not be used for non-medical purposes (e.g., employment testing, legal testing). Lab Interpretation (test Abnormal code = 84260-4) [facility] ONLY - SYPHILIS IGG/XPA9040-64-61 15:04:00 Test Item Value Reference Range Interpretation Comments Syphilis IgG/IgM (test Non-reactive Non-reactive code = 31787-3) JAMES (test code = JAEMS) Non-reactive - No serologic evidence of T. pallidum infection. Cannot exclude incubating or early syphilis. Submit a second specimen in 2-4 weeks if syphilis is clinically suspected. Equivocal - Further testing to follow. Reactive - Further testing to follow. Lab Interpretation (test Normal code = 85817-2) [facility] HospitalUrinalysis2020-11-09 14:52:00 Test Item Value Reference Range Interpretation Comments APPEARANCE (test code = Clear Clear 5145889842) COLOR (test code = Yellow Yellow 5547485672) PH (test code = 4.8-8.0 0471250613) SP GRAVITY (test code = 1.003-1.030 5039283385) GLU U QUAL (test code = 500 mg/dL Normal A 5076075010) BLOOD (test code = Negative Negative 5698322205) KETONES (test code = 20 mg/dL Negative A 9886560137) PROTEIN (test code = Negative Negative 2887-8) UROBILIN (test code = Normal Normal 6299136167) BILIRUBIN (test code = Negative Negative 2479504998) NITRITE (test code = Negative Negative 1392390451) LEUK RYAN (test code = Negative Negative 8282030063) RBC/HPF (test code = <1 See_Comment [Autom ated message] 5829927400) The system Hailo generated this result transmit ronan reference range : 0 - 3 HPF. The refe rence range was not u sed to interpret th is result as normal/abnormal . WBC/HPF (test code = See_Comment [Autom ated message] 2057942725) The system Hailo generated this result transmit ronan reference range : 0 - 5 HPF. The refe rence range was not u sed to interpret th is result as normal/abnormal . BACTERIA (test code = Negative Negative 4099531054) MUCOUS (test code = Slight Negative LPF A 8040024321) Lab Interpretation (test Abnormal code = 01328-2) [facility] HospitalACTIVATED PARTIAL THRMPLAS [id number] 13:45:00 Test Item Value Reference Range Interpretation Comments APTT Patient (test code = See_Comment [ Automated message] 3173-2) The system Hailo generated this result transmitted ref erence range: 26 - 36 Seconds. The re ference range was not u sed to interpret this result as normal/abnor mal. Lab Interpretation (test Normal code = 20056-1) [facility] HospitalPOCT GLUCOSE (AUTOMATED)2020-08-21 13:45:00 Test Item Value Reference Range Interpretation Comments POCT GLU (test code = 3368335159) 246 mg/dL 70-110 H Lab Interpretation (test code = Abnormal 41048-7) [facility] HospitalHIV 1/2 AG-AB WITH [id number] 12:32:00 Test Item Value Reference Range Interpretation Comments HIV Negative Negative Semi-quantitative (test code = 21559-3) JAMES (test code = Non-reactive for HIV-1 JAMES) antigen and HIV-1/HIV-2 antibodies. ?No laboratory evidence of HIV infection. ?Repeat in 2-4 weeks if acute HIV infection is suspected. [facility] HospitalCBC WITH [id number] 12:18:00 Test Item Value Reference Range Interpretation [...] RDW-SD (test code = 44.4 fL 38.5-51.6 02690-3) RDW-CV (test code = 14.5 % 12.1-15.4 788-0) PLT (test code = See_Comment H [Automated 777-3) message] The sy stem which generated this result transmitted reference range : 150 - 328 10*3/ ?L. The reference r torito was not used to interpret this result as normal/abnormal . MPV (test code = 8.5 fL 9.8-13 L 59962-6) NRBC/100 WBC (test See_Comment [Automat ed code = 0186354178) message] The system which generated this result transmitted reference range : 0.0 - 10.0 /100 WBCs. The refer ence range was not u sed to interpret th is result as normal/abnormal . NRBC x10^3 (test code <0.01 See_Comment [Auto mated = 8112726966) message] The s ystem which generated this result transmitted reference range : 10*3/?L. The reference range was not used to interpret this result as normal/abnormal . GRAN MAT (NEUT) % 90.4 % (test code = 770-8) IMM GRAN % (test code 1.30 % = 5529732719) LYMPH % (test code = 7.1 % 736-9) MONO % (test code = 0.5 % 5905-5) EOS % (test code = 0.1 % 713-8) BASO % (test code = 0.6 % 706-2) GRAN MAT x10^3(ANC) 7.74 10*3/uL 1.99-6.95 H (test code = 0707544046) IMM GRAN x10^3 (test 0.11 10*3/uL 0-0.06 H code = 4169400752) LYMPH x10^3 (test code 0.61 10*3/uL 1.09-3.23 L = 731-0) MONO x10^3 (test code 0.04 10*3/uL 0.36-1.02 L = 742-7) EOS x10^3 (test code = <0.03 0.06-0.53 L 711-2) BASO x10^3 (test code 0.05 10*3/uL 0.01-0.09 = 704-7) POLYCHROMASIA (test 2+ See_Comment [Automa ronan code = 42834-4) message] The system which generated this result transmitted reference range : 2+. The referen ce range was not u sed to interpret th is result as normal/abnormal . BANDS (test code = Increased A 1680439111) Lab Interpretation Abnormal (test code = 61249-4) [facility]PROCALCITONIN2020-11-09 11:48:00 Test Item Value Reference Range Interpretation Comments Procalcitonin (test 0.36 ng/mL <0.07 H code = 1091492059) JAMES (test code = JAMES) INTERPRETATION OF [...] lung abscess/empyema. For further information please refer to:[email or web address] Lab Interpretation Abnormal (test code = 44660-6) [facility] HospitalLAAZATE [id number] 10:53:00 Test Item Value Reference Range Interpretation Comments LDH (test code = 1632869095) 351 U/L 300-600 Lab Interpretation (test code = Normal 74779-1) [facility] HospitalSEDIMENTATION [id number] 10:07:00 Test Item Value Reference Range Interpretation Comments ESR (test code = See_Comment H [Automated message] 3430373158) The system [employer] generated this result transmitted ref erence range: 0 - 10 m m/HR. The reference r torito was not used to interpret this result as normal/abnor mal. Lab Interpretation (test Abnormal code = 30150-6) [facility] HospitalPOAZ GLUCOSE (AUTOMATED)2020-08-21 09:45:00 Test Item Value Reference Range Interpretation Comments POCT GLU (test code = 2704258435) 287 mg/dL 70-110 H Lab Interpretation (test code = Abnormal 23890-0) [facility] HospitalGlycosylated Hemoglobin (A1C)2020-08-21 09:29:00 Test Item Value Reference Range Interpretation Comments HGB A1C (test code = 4548-4) 9.8 % 4-6 H Lab Interpretation (test code = Abnormal 05895-0) [facility] HospitalCOVID-19 (ID NOW RAPID TESTING)2020-08-21 09:13:00 Test Item Value Reference Range Interpretation Comments SARS-CoV-2 Rapid ID NOW Not Detected Not Detected (test code = 43429-4) JAMES (test code = JAMES) ID NOW COVID-19 Assay is an isothermal nucleic acid amplification test intended for the qualitative detection of nucleic acid from SARS-CoV-2 viral RNA in nasopharyngeal (TRACING LATHE SET UP OPERATOR) specimens. It is used under Emergency [...] indicated. Lab Interpretation Normal (test code = 32876-2) [facility] HospitalProthrombin Time / [id number] 08:59:00 Test Item Value Reference Range Interpretation Comments PROTIME PATIENT (test See_Comment H [Auto mated message] code = 5964-2) The system [employer] generated this result transmitted ref erence range: 10.1 - 1 2.6 Seconds. The reference range was not used to int erpret this result as normal/abnormal . INR (test code = 6301-6) Nor mal INR <1.1; Warfarin Therap eutic range 2.0 to 3. 0 or 2.5 to 3.5, dep ending upon the indica tions. Lab Interpretation (test Abnormal code = 31392-3) [facility] HospitalaPTT2020-11-09 08:59:00 Test Item Value Reference Range Interpretation Comments APTT Patient (test code = See_Comment [ Automated message] 3173-2) The system [employer] generated this result transmitted ref erence range: 26 - 36 Seconds. The re ference range was not u sed to interpret this result as normal/abnor mal. Lab Interpretation (test Normal code = 46915-1) [facility] HospitalBASI METABOLIC PANEL (NA, K, CL, CO2, GLUCOSE, BUN, CREATININE, CA)2020-08-21 08:52:00 Test Item Value Reference Range Interpretation Comments NA (test code = 136 mmol/L 135-145 3178019153) K (test code = 4.3 mmol/L 3.5-5 4384834603) CL (test code = 104 mmol/L 98-108 6189099272) CO2 TOTAL (test code = 24 mmol/L 23-31 1815275797) AGAP (test code = 2-16 0927519150) BUN (test code = 8 mg/dL 7-23 9553158089) GLUCOSE (test code = 308 mg/dL 70-110 H 1932983752) CREATININE (test code = 0.72 mg/dL 0.6-1.25 3926586055) CALCIUM (test code = 7.8 mg/dL 8.6-10.6 L 4590590437) eGFR Calculation mL/min/1.73m2 (Non-) (test code = 0389933896) eGFR Calculation mL/min/1.73m2 () (test code = 3127497857) JAMES (test code = JAMES) Association of [...] tests). Lab Interpretation Abnormal (test code = 76449-0) [facility] HospitalHEPATIC FUNCTION PANEL (60875) (ALB,T.PRO,BILI T,BU/BC,ALT,AST,ALK PHOS)2020-08-21 08:52:00 Test Item Value Reference Range Interpretation Comments TOTAL BILI (test code = 5831774429) 0.8 mg/dL 0.1-1.1 BILI UNCON (test code = 0551181173) 0.3 mg/dL 0.1-1.1 BILI CONJ (test code = 1241104669) 0.0 mg/dL 0-0.3 T PROTEIN (test code = 7630009206) 5.7 g/dL 6.3-8.2 L ALBUMIN (test code = 5223582557) 2.7 g/dL 3.5-5 L ALK PHOS (test code = 1294857526) 245 U/L 34-122 H ALTv (test code = 1742-6) 37 U/L 5-50 AST(SGOT) (test code = 1084978652) 43 U/L 13-40 H Lab Interpretation (test code = Abnormal 08045-7) [facility]
--- NOTE | 2022-06-21 14:55 | EDPHYS ---
Physician Documentation [facility] Name: Kiel Ngo Age: 71 yrs Sex: Male : 1950 Arrival Date: 06/21/2022 Time: 13:16 Bed 14 Private MD: ED Physician Stu Banerjee HPI: 06/21 14:51 This 71 yrs old Male presents to ER via Unassigned with complaints of CHRONIC chetan PAIN. 14:51 The patient presents with pain that is chronic, with no known mechanism of injury. The chetan symptoms are located in the low back. The pain does not radiate. The problem was sustained from a chronic condition, BEDRID[place]. Onset: The symptoms/episode began/occurred 1 year(s) ago. Modifying factors: The patient symptoms are alleviated by remaining still, the patient symptoms are aggravated by lifting, movement. Associated signs and symptoms: The patient has no apparent associated signs or symptoms. Severity of symptoms: At their worst the symptoms were mild, moderate, in the emergency department the symptoms are unchanged. The patient has experienced similar episodes in the past, multiple times. - Immunization history:: Adult Immunizations up to date. - Family history:: not pertinent. - Social history:: Smoking status: Patient denies any tobacco usage or history of. ROS: 14:51 Constitutional: Negative for fever, chills, and weight loss, Eyes: Negative for injury, chetan pain, redness, and discharge, ENT: Negative for injury, pain, and discharge, Neck: Negative for injury, pain, and swelling, Cardiovascular: Negative for chest pain, palpitations, and edema, Respiratory: Negative for shortness of breath, cough, wheezing, and pleuritic chest pain, Abdomen/GI: Negative for abdominal pain, nausea, vomiting, diarrhea, and constipation, : Negative for injury, bleeding, discharge, and swelling, MS/Extremity: Negative for injury and deformity, Skin: Negative for injury, rash, and discoloration, Neuro: Negative for headache, weakness, numbness, tingling, and seizure, Psych: Negative for depression, anxiety, suicide ideation, homicidal ideation, and hallucinations, Allergy/Immunology: Negative for hives, rash, and allergies, Endocrine: Negative for neck swelling, polydipsia, polyuria, polyphagia, and marked weight changes, Hematologic/Lymphatic: Negative for swollen nodes, abnormal bleeding, and unusual bruising. 14:51 Back: Positive for decreased range of motion, pain at rest. Exam: 14:51 Constitutional: This is a well developed, well nourished patient who is awake, alert, chetan and in no acute distress. Head/Face: Normocephalic, atraumatic. Eyes: Pupils equal round and reactive to light, extra-ocular motions intact. Lids and lashes normal. Conjunctiva and sclera are non-icteric and not injected. Cornea within normal limits. Periorbital areas with no swelling, redness, or edema. ENT: Nares patent. No nasal discharge, no septal abnormalities noted. Tympanic membranes are normal and external auditory canals are clear. Oropharynx with no redness, swelling, or masses, exudates, or evidence of obstruction, uvula midline. Mucous membranes moist. Neck: Trachea midline, no thyromegaly or masses palpated, and no cervical lymphadenopathy. Supple, full range of motion without nuchal rigidity, or vertebral point tenderness. No Meningismus. Chest/axilla: Normal chest wall appearance and motion. Nontender with no deformity. No lesions are appreciated. Cardiovascular: Regular rate and rhythm with a normal S1 and S2. No gallops, murmurs, or rubs. Normal PMI, no JVD. No pulse deficits. Respiratory: Lungs have equal breath sounds bilaterally, clear to auscultation and percussion. No rales, rhonchi or wheezes noted. No increased work of breathing, no retractions or nasal flaring. Abdomen/GI: Soft, non-tender, with normal bowel sounds. No distension or tympany. No guarding or rebound. No evidence of tenderness throughout. Male : Normal genitalia with no discharge or lesions. Skin: Warm, dry with normal turgor. Normal color with no rashes, no lesions, and no evidence of cellulitis. MS/ Extremity: Pulses equal, no cyanosis. Neurovascular intact. Full, normal range of motion. Neuro: Awake and alert, GCS 15, oriented to person, place, time, and situation. Cranial nerves II-XII grossly intact. Motor strength 5/5 in all extremities. Sensory grossly intact. Cerebellar exam normal. Normal gait. Psych: Awake, alert, with orientation to person, place and time. Behavior, mood, and affect are within normal limits. 14:51 Musculoskeletal/extremity: Compartment Syndrome exam of affected extremity: is normal. Joints: All joints are normal except RESTRICTED ROM, DVT Exam: No signs of deep vein thrombosis. no pain, no swelling, no tenderness, negative Homans' sign noted on exam, no appreciated bluish discoloration, no erythema, no increased warmth. Vital Signs: 13:24 BP 155 / 93; Pulse 100; Resp 18; Temp 98.1(O); Pulse Ox 97% on R/A; tm3 16:36 BP 156 / 84; Pulse 86; Resp 17; Pulse Ox 100% ; Pain 5/10; jh6 MDM: 13:26 Patient medically screened. chetan Administered Medications: 15:17 Drug: Dilaudid (HYDROmorphone) 1 mg Route: IM; Site: left deltoid; ss 16:10 Follow up: Response: No adverse reaction ss 15:17 Drug: Phenergan (promethazine) 25 mg Route: IM; Site: left deltoid; ss 16:09 Follow up: Response: No adverse reaction ss 16:09 Drug: fentaNYL Patch (50 mcg/hr) 1 patches Route: Transdermal; Site: affected area; ss Disposition Summary: 06/21/22 14:54 Discharge Ordered Location: Home chetan Problem: new chetan Symptoms: have improved chetan Condition: Stable chetan Diagnosis - Other chronic pain chetan - Low back pain chetan Followup: chetan - With: Private Physician - When: 2 - 3 days - Reason: Recheck today's complaints, Continuance of care, Re-evaluation by your physician Followup: chetan - With: Isai Snow MD - When: 2 - 3 days - Reason: Recheck today's complaints, Continuance of care, Re-evaluation by your physician Discharge Instructions: - Discharge Summary Sheet chetan - Chronic Back Pain chetan - Chronic Pain, Adult chetan - Musculoskeletal Pain chetan - Chronic Back Pain, Uepb-pa-Mlsl chetan Forms: - Medication Reconciliation Form chetan - Thank You Letter chetan - Antibiotic Education chetan - Prescription Opioid Use chetan Signatures: Stu Banerjee MD MD cha Smirch, Shelby RN RN Roxane Cote RN RN jh6
--- NOTE | 2022-06-21 14:55 | ER ---
Nurse's Notes [facility] Name: Kiel Ngo Age: 71 yrs Sex: Male : 1950 Arrival Date: 06/21/2022 Time: 13:16 Bed 14 Private MD: Diagnosis: Other chronic pain;Low back pain Presentation: 06/21 14:00 Chief complaint: Patient states: I wasn't ot able to get my Dilaudid from my dr and my jh6 legs are hurting. Reports that he was not able to give a urine sample so the Dr wouldn't refill pain meds. 14:00 Coronavirus screen: Vaccine status: Patient reports receiving the 2nd dose of the covid jh6 vaccine. Ebola Screen: Patient negative for fever greater than or equal to 101.5 degrees Fahrenheit, and additional compatible Ebola Virus Disease symptoms Patient denies exposure to infectious person. Patient denies travel to an Ebola-affected area in the 21 days before illness onset. Initial Sepsis Screen: Does the patient meet any 2 criteria? No. Patient's initial sepsis screen is negative. Does the patient have a suspected source of infection? No. Patient's initial sepsis screen is negative. Risk Assessment: Do you want to hurt yourself or someone else? Patient reports no desire to harm self or others. Onset of symptoms was June 21, 2022. 14:00 Method Of Arrival: EMS: [facility] 14:00 Acuity: JOZEF 4 jh6 Triage Assessment: 14:00 General: Appears in no apparent distress. comfortable, Behavior is calm, cooperative. [facility] 14:00 Pain: Complains of pain in right leg and left leg Pain currently is 6 out of 10 on a [facility] pain scale. - Immunization history:: Adult Immunizations up to date. - Family history:: not pertinent. - Social history:: Smoking status: Patient denies any tobacco usage or history of. Screenin:00 Abuse screen: Denies threats or abuse. Nutritional screening: No deficits noted. [facility] 14:00 Tuberculosis screening: No symptoms or risk factors identified. Fall Risk Gait- 6 Impaired (20 pts.). Assessment: 14:00 General: Appears in no apparent distress. Behavior is calm, cooperative. [facility] 14:00 Pain: Complains of pain in right leg and left leg Pain currently is 6 out of 10 on a 6 pain scale. Quality of pain is described as aching, sharp, shooting, stabbing, Pain began years ago. Is continuous. 15:15 Reassessment: No changes from previously documented assessment. Patient and/or family 6 updated on plan of care and expected duration. Pain level reassessed. Patient is alert, oriented x 3, equal unlabored respirations, skin warm/dry/pink. Vital Signs: 13:24 BP 155 / 93; Pulse 100; Resp 18; Temp 98.1(O); Pulse Ox 97% on R/A; tm3 16:36 BP 156 / 84; Pulse 86; Resp 17; Pulse Ox 100% ; Pain 5/10; 6 ED Course: 13:16 Patient arrived in ED. bd 13:25 Stu Banerjee MD is Attending Physician. [facility] 14:00 No provider procedures requiring assistance completed. Patient did not have IV access 6 during this emergency room visit. 14:10 Bed in low position. Call light in reach. Side rails up X2. 6 14:20 Paris Mar, DIEGO is Primary Nurse. ss 14:54 Isai Snow MD is Referral Physician. [facility] 16:09 Paris Mar, RN is Primary Nurse. ss 16:31 Roxane Cote, DIEGO is Primary Nurse. 6 16:34 Triage completed. 6 Administered Medications: 15:17 Drug: Dilaudid (HYDROmorphone) 1 mg Route: IM; Site: left deltoid; ss 16:10 Follow up: Response: No adverse reaction 15:17 Drug: Phenergan (promethazine) 25 mg Route: IM; Site: left deltoid; ss 16:09 Follow up: Response: No adverse reaction 16:09 Drug: fentaNYL Patch (50 mcg/hr) 1 patches Route: Transdermal; Site: affected area; ss Medication: 14:00 VIS not applicable for this client. 6 Outcome: 14:54 Discharge ordered by . [facility] 16:15 Discharged to home via ambulance. 6 16:15 Condition: good 16:15 Discharge instructions given to patient, Instructed on discharge instructions, follow up and referral plans. Demonstrated understanding of instructions, follow-up care. 16:38 Patient left the ED. 6 Signatures: Karin Solorzano Toni tm3 Stu Banerjee MD MD cha Smirch, Shelby, RN RN ss Roxane Cote RN RN jh6
[2022-06-21] MEDS ORDERED: PROMETHAZINE INJ 25 MG/ML AMP ONE (15:22)
[2022-06-21] MEDS ORDERED: HYDROMORPHONE HCL 1 MG/ML INJ ONE (15:23)
[2022-06-21] MEDS ORDERED: FENTANYL 50 MCG/PATCH TD ONE (16:00)
[2022-06-21 16:50] VITALS: TEMP 98.1
[2022-06-21 16:55] VITALS: BP 156/84; O2SAT 100
== END 2022-06-21 16:38 | disposition home or self-care (01) ==
LOC: ER 13:05
DX: G89.29 Other chronic pain (principal); M54.50 Low back pain, unspecified
CPT/HCPCS: 96372; 99283; J2550; J1170

== ENCOUNTER 2022-08-01 21:27 | Emergency (ER) | payer OTHER ==
--- NOTE | 2022-08-01 21:37 | EDPHYS ---
Physician Documentation [facility] Name: Kiel Ngo Age: 71 yrs Sex: Male : 1950 Arrival Date: 08/01/2022 Time: 21:31 Bed 1 Private MD: ED Physician Carie Quintanilla HPI: 08/01 21:31 This 71 yrs old Male presents to ER via Unassigned with complaints of chronic leg pain. sd2 21:31 71-year-old male with a history of chronic leg pain presents with chief complaint of sd2 chronic leg pain. He reports he has had chronic right hip pain for the past 3 years and is unchanged but worsened today as patient ran out of his home Dilaudid. He has been taking extra of his pain medication at home without prescription or change from his physician and is not due for a refill until 08/16. States only Dilaudid works for his pain, and he has tried "everything else." Chronic pain otherwise unchanged.. Historical: - Allergies: 21:42 Demerol; bb 21:42 metformin; bb 21:42 Morphine; bb - Immunization history:: unknown. - Social history:: Smoking status: unknown. ROS: 21:31 Constitutional: Negative for fever, chills, and weight loss, Eyes: Negative for injury, sd2 pain, redness, and discharge, Cardiovascular: Negative for chest pain, palpitations, and edema, Respiratory: Negative for shortness of breath, cough, wheezing. Abdomen/GI: Negative for abdominal pain, nausea, vomiting, diarrhea. MS/Extremity: Negative for injury and deformity, Positive for pain Skin: Negative for injury, rash, and discoloration, Neuro: Negative for headache, Positive for numbness and tingling (chronic) Exam: 21:31 Constitutional: This is a well developed, well nourished patient who is awake, alert, sd2 and in no acute distress. Pt resting comfortably looking at his phone. Head/Face: Normocephalic, atraumatic. Eyes: EOMI, normal conjunctiva bilaterally Skin: Warm, dry with normal turgor. Normal color with no rashes, no lesions, and no evidence of cellulitis. MS/ Extremity: Pulses equal, no cyanosis. Neurovascular intact. Psych: Awake, alert, with orientation to person, place and time. Behavior, mood, and affect are within normal limits. Vital Signs: 21:40 BP 128 / 83; Pulse 111; Resp 12 S; Pulse Ox 97% on R/A; bb MDM: 21:31 Patient medically screened. sd2 21:31 Differential Diagnosis chronic pain, neuropathy, medication non-compliance/OD among sd2 others. Data reviewed: vital signs, nurses notes, EMS record, old medical records. Counseling: I had a detailed discussion with the patient and/or guardian regarding: the historical points, exam findings, and any diagnostic results supporting the discharge/admit diagnosis, the need for outpatient follow up, to return to the emergency department if symptoms worsen or persist or if there are any questions or concerns that arise at home. ED course: I had a lengthy discussion with the patient about how he should be taking his pain medications only as prescribed and not taking additional medication as he sees fit. I also advised the patient to follow-up with his pain management physician for further refills of his narcotic pain medication. The patient does have chronic pain and this is unchanged from previous visits. I do not believe it is in the patient's best interest to continue to give him narcotic pain medications every time he comes to the ER especially when he is not taking his home medications as prescribed and is abusing them. Therefore, the patient was offered the ALTO protocol for treatment of his chronic pain with alternative, non-narcotic medications. Pt declines after discussion of benefits and requests to be discharged back home. He is no distress at this time. Verbalizes understanding of strict return precautions and understands he may return at any time for further evaluation.. Administered Medications: No medications were administered Disposition Summary: 08/01/22 21:36 Discharge Ordered Location: Home sd2 Problem: an acute exacerbation sd2 Symptoms: are unchanged sd2 Condition: Stable sd2 Diagnosis - Chronic leg pain sd2 Followup: sd2 - With: Private Physician - When: 2 - 3 days - Reason: Recheck today's complaints, Continuance of care, Re-evaluation by your physician Discharge Instructions: - Discharge Summary Sheet sd2 - Chronic Pain, Adult sd2 Forms: - Medication Reconciliation Form sd2 - Thank You Letter sd2 - Antibiotic Education sd2 - Prescription Opioid Use sd2 Signatures: Lugo, Elvia, RN RN bb Socorro, Carie, MD MD sd2
--- OUTSIDE RECORDS SUMMARY | 2022-08-01 21:41 | XMS REPORT | Continuity of Care Document ---
:[address] [facility] t Address [address] [place] [address] Care Team Providers Name Role Phone CALVIN WORLEY Primary Care Physician Unavailable KELLY WASHINGTON Attending Clinician Unavailable SWEETIE STOUT Attending Clinician Unavailable Sweetie Stout MD Attending Clinician ADRIANA HAINES Attending Clinician Unavailable Calvin Worley MD Attending Clinician Ruchi Peters RN Attending Clinician Paco Lacey DO Attending Clinician Vika Harrison MD Attending Clinician Alvarez Rowe MD Attending Clinician ALVAREZ ROWE Attending Clinician Unavailable PACO LACEY Attending Clinician Unavailable Doctor Unassigned, [place] Attending Clinician Unavailable Wilder VILLAREAL, Angi K.HWong Attending Clinician Jl Mccabe MD Attending Clinician Kelly Washington MD Attending Clinician [phone] Mukul Gallardo MD Attending Clinician MUKUL GALLARDO Admitting Clinician Unavailable Harrison MD, Premal G Admitting Clinician KRUPA VIKA G Admitting Clinician Unavailable Nicci VILLAREAL, Mukul Anand Admitting Clinician Payers Payer Name Policy Type Policy Number Effective Date Expiration Date Tony doe MEDICARE PART A [id number] 2007 \\T\\ B 00:00:00 [employer] INDEMNITY [id number] 2016 00:00:00 MEDICARE PART A [id number] 2014 \\T\\ B - MEDICARE 00:00:00 INDEMNITY/TRADITIO [id number] NAL CHOICE - [employer] 00:00:00 Problems Condition Condition Condition Status Onset Resolution Last Treating Co mments Source Name Details Category Date Date Treatment Clinician Date Elevated Elevated Disease Active Unive rs LFTs LFTs 2-05 ity of 00:00: 00 Medical Branch Abnormal Abnormal Disease Active Unive rs CXR CXR 2-05 ity of 00:00: Medical Branch Elevated Elevated Disease Active 2020- Unive rs LFTs LFTs 2-05 ity of 00:00: 00 Medical Branch Cellulitis Cellulitis Disease Active 2020-0 U nivers 2-04 ity of 00:00: 00 Medical Branch Rash Rash Disease Active 2019- Univers -09 ity of 00:00: 00 Medical Branch Allergies, Adverse Reactions, Alerts Allergy Allergy Status Severity Reaction(s) Onset Inactive Treating Comm ents Source Name Type Date Date Clinician Weak[place] Propensi Active Rash 2019- Univers ty to 1-10 ity of adverse 00:00: [place] reaction 00 Medical s Branch PEACH DRUG Active Rash 2019- Univers INGREDI 1-10 ity of 00:00: 00 Medical Branch Lidocain Drug Active Itching 2019- Univers e Allergy -09 ity of 00:00: 00 Medical Branch LIDOCAIN DRUG Active ITCHING 2019- Univers E INGREDI -09 ity of 00:00: 00 Medical Branch Meperidi Propensi Active Anaphylaxis 2011-0 U nivers ne ty to 3-16 ity of adverse 00:00: [place] reaction 00 Medical s Branch Glimepir Propensi Active Hives 2012-0 Univer s efren ty to 3-16 ity of adverse 00:00: [place] reaction 00 Medical s Branch Metformi Propensi Active Itching Unive rs n ty to 316 ity of adverse 00:00: [place] reaction 00 Medical s Branch MEPERIDI DRUG Active Anaphylaxis Uni vers NE INGREDI 16 ity of 00:00: [place] 00 Medical Branch GLIMEPIR DRUG Active Hives Univers EFREN INGREDI -16 ity of 00:00: [place] 00 Medical Branch METFORMI DRUG Active ITCHING Univers N INGREDI -16 ity of 00:00: [place] 00 Medical Branch Social History Social Habit Start Date Stop Date Quantity Comments Source Exposure to Not sure [place] of SARS-CoV-2 [place] [facility] (event) Branch History of Chews Tobacco University of tobacco use [place] [facility] History SDOH 2020-11-17 2020-11-17 5 University o f Financial 00:00:00 00:00:00 [place] [facility] History SDND Food 2020-11-17 2020-11-17 1 Univers ity of Worry 00:00:00 00:00:00 [place] [facility] History SDOH Food 2020-11-17 2020-11-17 1 Univers ity of Scarcity 00:00:00 00:00:00 [place] [facility] History SDOH 2020-11-17 2020-11-17 1 University o f Transport Med 00:00:00 00:00:00 [place] Medic al Branch History SDOH 2020-11-17 2020-11-17 1 University o f Transport Non-Med 00:00:00 00:00:00 [facility] edical Branch Education 2020-11-16 2020-11-16 21 [place] of 00:00:00 00:00:00 [facility] Alcohol intake 2020-11-16 2020-11-16 Ex-drinker [facility] 00:00:00 00:00:00 (finding) [facility] Tobacco use and 2020-08-21 2020-08-21 Former user Universi ty of exposure 00:00:00 00:00:00 [facility] Tobacco Comment 2020-08-21 2020-08-21 quit 10 years Univer sity of 00:00:00 00:00:00 ago, started in [place] Med ical 2nd year of Branch college (~40 years) Alcohol Comment 2020-08-21 2020-08-21 Used to have 2-3 Uni versity of 00:00:00 00:00:00 six-packs of [place] Medica l beer daily x 20 Branch years, quit 2004 History [facility] 2020-08-21 2020-08-21 99 University o f Alcohol Frequency 00:00:00 00:00:00 [place] M edical Branch History [facility] 2020-08-21 2020-08-21 99 [place] o f Alcohol Std 00:00:00 00:00:00 [place] [facility] Drinks Branch History [facility] 2020-08-21 2020-08-21 99 [place] o f Alcohol Binge 00:00:00 00:00:00 [facility] [place] Sex [birth year] Universit y of 00:00:00 00:00:00 [facility] Smoking Status Start Date Stop Date Source Never smoker [facility] Medications Ordered Filled Start Stop [...] by ity of tablet 22:47: mouth at [place] 18 bedtime. Medical Branch HYDROmorpho 2020-0 Yes [...] by ity of tablet 22:47: mouth at [place] 18 bedtime. Medical Branch HYDROmorpho 0 Yes [...] by ity of tablet 16:47: mouth at [place] 18 bedtime. Medical Branch HYDROmorpho 0 Yes [...] 0845, Until Discontinu ed, Routine amLODIPine Yes [id number] 10mg Take 1 Univers 10 mg 3-07 tablet by ity of tablet 00:00: mouth [place] 00 daily. Medical Branch clotrimazol Yes [id number] Apply to Univers e 1 % 3-07 face/ears, ity of topical 00:00: armpits, [place] cream 00 pannus and Medical back/any Branch other rash twice a day fluocinonid 0 Yes [id number] Apply to Univers e 0.05 % 3-07 scalp ity of solution 00:00: twice a [place] 00 day Medical Branch triamcinolo Yes [id number] Apply to Univers ne 3-07 back, ity of acetonide 00:00: armpits [place] 0.1 % cream 00 and other Med ical affected Branch areas twice daily, please mix with clotrimazo le hydrOXYzine Yes [id number] 10mg Take 1 Univers 10 mg 3-07 tablet by ity of tablet 00:00: mouth 2 00 (two) Medical times Branch daily. amLODIPine Yes [id number] 10mg Take 1 Univers 10 mg 3-07 tablet by ity of tablet 00:00: mouth [place] 00 daily. Medical Branch clotrimazol Yes [id number] Apply to Univers e 1 % 3-07 face/ears, ity of topical 00:00: armpits, [place] cream 00 pannus and Medical back/any Branch other rash twice a day fluocinonid Yes [id number] Apply to Univers e 0.05 % 3-07 scalp ity of solution 00:00: twice a day Medical Branch triamcinolo Yes [id number] Apply to Univers ne 3-07 back, ity of acetonide 00:00: armpits [place] 0.1 % cream 00 and other Med ical affected Branch areas twice daily, please mix with clotrimazo le hydrOXYzine Yes [id number] 10mg Take 1 Univers 10 mg 3-07 tablet by ity of tablet 00:00: mouth 2 [place] 00 (two) Medical times Branch daily. amLODIPine Yes [id number] 10mg Take 1 Univers 10 mg 3-07 tablet by ity of tablet 00:00: mouth [place] 00 daily. Medical Branch clotrimazol 0 Yes [id number] Apply to Univers e 1 % 3-07 face/ears, ity of topical 00:00: armpits, [place] cream 00 pannus and Medical back/any Branch other rash twice a day fluocinonid 2020-0 Yes [id number] Apply to Univers e 0.05 % 3-07 scalp ity of solution 00:00: twice a day Medical Branch triamcinolo 2020-0 Yes [id number] Apply to Univers ne 3-07 back, ity of acetonide 00:00: armpits [place] 0.1 % cream 00 and other Med ical affected Branch areas twice daily, please mix with clotrimazo le hydrOXYzine Yes [id number] 10mg Take 1 Univers 10 mg 3-07 tablet by ity of tablet 00:00: mouth 2 [place] (two) Medical times Branch daily. amLODIPine Yes [id number] 10mg Take 1 Univers 10 mg 3-07 tablet by ity of tablet 00:00: mouth [place] 00 daily. Medical Branch clotrimazol Yes [id number] Apply to Univers e 1 % 3-07 face/ears, ity of topical 00:00: armpits, [place] cream 00 pannus and Medical back/any Branch other rash twice a day fluocinonid Yes [id number] Apply to Univers e 0.05 % 3-07 scalp ity of solution 00:00: twice a day Medical Branch triamcinolo 0 Yes [id number] Apply to Univers ne 3-07 back, ity of acetonide 00:00: armpits [place] 0.1 % cream 00 and other Med ical affected Branch areas twice daily, please mix with clotrimazo le hydrOXYzine Yes [id number] 10mg Take 1 Univers 10 mg 3- tablet by ity of tablet 00:00: mouth 2 (two) Medical times Branch daily. cephALEXin 2020-2020- No [id number] 500mg Take 1 Univers 500 mg -04 14- capsule by ity of capsule 00:00: 05:59 mouth [place] 00 :00 every 6 Medical (six) Branch hours for 3 days. cephALEXin 2020-0 2020- No [id number] 500mg Take 1 Univers 500 mg 3-04 14- capsule by ity of capsule 00:00: 05:59 mouth [place] 00 :00 every 6 Medical (six) Branch hours for 3 days. hydrOXYzine 2020-2020- No [id number] 10mg Take 1 Univers 10 mg 3- 03-07 tablet by ity of tablet 00:00: 00:00 mouth 2 [place] 00 :00 (two) Medical times [place] daily. morpHINE Yes 4mg 4 mg, Slow Uni vers injection 4 -06 IV Push, ity of mg 22:40: Q6HPRN, [place] 02 Starting Medical 12/16/20 [place] at 1640, Until Discontinu ed, Routine, Pain [...] Starting Medic al 0.9% (NS) 12/16/20 Bran piggyback at 1230, Until Discontinu ed, 50 mL morpHINE 2020- No 4mg 4 mg, Slow Un toi injection 4 12-16-06 IV Push, ity of mg 11:15: 10:58 ONCE, 1 [place] 00 :00 dose, Sat Medical 12/16/20 at [place] 0515, Routine lactated 2020- No 1000mL at 125 Univ ers ringers IV 12-16 03-06 mL/hr, ity of infusion 01:00: 00:16 1,000 mL, [place] 1,000 mL 00 :00 IV Medical Infusion, [place] ONCE, 1 dose, 12/15/20 at 1900, Routine iohexol 2020- No 100mL 100 mL, Unive rs (OMNIPAQUE 12-15-05 Intravenou it y of 350 22:24: 22:24 s, ONCE, 1 [place] BULK-100 00 :00 dose, Fri Medica l mL) 12/15/20 at [place] injection 1645, 100 mL Routine cephALEXin 2020- [...] NaCl 0.9% 2020- No 500mL at 999 [facility] ers (NS) bolus 12-15-05 mL/hr, 500 it y of infusion 16:00: 15:26 mL, IV [place] 500 mL 00 :00 Piggyback, Medical ONCE, 1 Branch dose, Fri12/15/20 at 1000, STAT HYDROmorpho Yes 4mg 4 [facility], [facility] Oral, BID, ity of (DILAUDID) 15:30: First dose [place] tablet 4 mg 00 (after Medica l last Branch modificati on) on Fri12/15/20 at 0930, Until Discontinu ed, Routine amLODIPine 2020- No [id number] 10mg Take 1 Univers 10 mg 12-1507 tablet by ity of tablet 00:00: 00:00 mouth [place] 00 :00 daily. Medical Branch HYDROmorpho 2020- No 1mg 1 mg, [facility] ers ne 12-14 03-05 Oral, ity of (DILAUDID) 17:35: 15:18 Q6HPRN, [place] tablet 1 mg 30 :06 Starting Medi [facility] 12/14/20 Branch at 1135, Until Fri12/15/20 at 0918, Routine, Pain (scale 7-10) hydrOXYzine Yes 10mg 10 mg, [facility] ers (ATARAX) 304 Oral, BID, ity o f tablet 10 17:30: First dose [place] mg 00 on [facility] 12/14/20 at Branch 1130, Until Discontinu ed, Routine lisinopriL 0 Yes 5mg 5 mg, Univer s (PRINIVIL,Z -04 Oral, ity of ESTRIL) 17:30: DAILY, [place] tablet 5 mg 00 First dose Me dical on [facility] Branch 12/14/20 at 1130, Until Discontinu ed, Routine triamcinolo 2020- No [id number] Apply to Univers ne 12-14 back, ity of acetonide 00:00: 00:00 armpits [place] 0.1 % cream 00 :00 and other Med ical affected Branch areas twice daily, please mix with clotrimazo le clotrimazol 2020- No [id number] Apply to Univers e 1 % 12-14 face/ears, ity of topical 00:00: 00:00 armpits, [place] cream 00 :00 pannus and Medical back/any Branch other rash twice a day fluocinonid 2020- No [id number] Apply to Univers e 0.05 % 12-14 scalp ity of solution 00:00: 00:00 twice a [place] 00 :00 day Medical Branch hydrOXYzine 2020- No [id number] 10mg Take 1 Univers 10 mg 12-14 tablet by ity of tablet 00:00: 00:00 mouth 2 [place] 00 :00 (two) Medical times Branch daily. metoclopram 2020- No 10mg 10 mg, IV Univers efren [...] IV Push, ity of (PF)) 10:07: Q6HPRN, injection 4 28 Starting Medi jose c mg Fri12/13/20 Branch at 0407, Until Discontinu ed, Routine, Nausea and Vomiting (N/V) ondansetron 2020- No 4mg 4 mg, Slow Univers (ZOFRAN 12-13 IV Push, ity of (PF)) 04:55: 05:44 ONCE, 1 [place] injection 4 00 :00 dose, [facility] ical mg 12/12/20 at Branch 2300, Routine traMADoL 2020- No 50mg 50 mg, Univer s (ULTRAM) 12-13 03-03 Oral, ity of tablet 50 03:45: 03:34 ONCE, 1 [place] mg 00 :00 dose, [facility] 12/12/20 at Branch 2145, Routine insulin Yes 15U 15 Units, [facility] rs glargine 12-12 Subcutaneo ity o f (LANTUS 15:00: us, DAILY, [place] U-100) 00 First dose Medical injection on [facility] 15 Units 12/12/20 at 0900, Until Discontinu ed hydrOXYzine 2020- No 10mg 10 mg, Uni vers (ATARAX) 12-12 03-02 Oral, ity of tablet 10 08:15: 07:33 ONCE, 1 [place] mg 00 :00 dose, [facility] 12/12/20 at Branch 0215, Routine mirtazapine Yes 7.5mg 7.5 mg, Un toi (REMERON) 3-02 Oral, QHS, ity of tablet 7.5 03:00: First dose [place] mg 00 on [facility] [place] 12/11/20 at Branch 2100, Until Discontinu ed, Routine venlafaxine 0 Yes 300mg 300 mg, Un toi XR [...] Oral, ity of (TYLENOL 23:23: 13:49 Q6HPRN, [place] #3) 300-30 43 :08 Starting Medic al mg tablet 1 Fri12/11/20 Br anch tablet at 1723, Until Fri12/15/20 at 0749, Routine, Pain (scale 4-6) enoxaparin Yes 40mg 40 mg, Unive rs (LOVENOX) 12-11 Subcutaneo ity of injection 23:00: us, DAILY, [place] 40 mg 00 First dose Medical on Fri12/11/20 at 1700, Until Discontinu ed, Routine clotrimazol 0 Yes Topical, Un toi e 3- BID, First ity of (LOTRIMIN) 19:15: dose on [place] 1 % topical 00 Fri12/11/20 Me dical cream at 1315, [place] Until Discontinu ed, Routine hydrocortis 0 Yes Topical Uni vers one 2.5 % 12-11 (Apply To ity o f cream 19:15: Affected Areas), Medical BID, First Branch dose on Fri12/11/20 at 1315, Until Discontinu ed, Routine triamcinolo 2020-0 Yes Topical, Un toi ne 3- BID, First ity of acetonide 19:00: dose [place] (TRIDERM) 00 (after Medical 0.1 % cream last Branch modificati on) on Fri12/11/20 at 1300, Until Discontinu ed, Routine ceFAZolin 2020- No 1000mg 1,000 mg, Univers (ANCEF) 12-11 IV ity of 1,000 mg in 19:00: 17:35 [place], [place] NaCl 0.9% 00 :26 Q8H ABX, Medica l (NS) 50 mL First dose Bra nc MINI-BAG on 12/11/20 at 1300, Until Discontinu ed, 50 mL
[...] ed, Routine insulin Yes 5U 5 Units, [facility] lispro 12-11 Subcutaneo ity of (human) 18:00: us, TID [place] (HumaLOG 00 MEALS, Medical U-100) First dose Branch injection 5 on Mon Units 12/11/20 at 1200, Until Discontinu ed Polyethylen Yes 17g 17 g, [facility] rs e Glycol 12-11 Oral, ity of 3350 17:47: [id number], [place] (MIRALAX) 05 Starting Medica l powder 17 g 12/11/20 Br anch at 1147, Until Discontinu ed, Routine, Constipati on acetaminoph Yes 650mg 650 mg, Un toi en 12-11 Oral, ity of (TYLENOL) 16:51: Q6HPRN, [place] tablet 650 28 Starting Medic al [...] 1 dose, Fri12/11/20 at 0630, STAT piperacilli No 3.375g 3.375 g, [facility] n-tazobacta 12-11 IV ity of m (ZOSYN) 12:00: 17:48 Piggyback, [place] injection 00 :24 Q6H, First Medi jose c 3.375 g dose on Branch Fri12/11/20 at 0600, Until Discontinu ed, KAHLIL
Re ason for Anti-Infec tive: Empiric Therapy for Suspected Infection< br>Empiric Therapy Site: Skin / Soft tissue
Duration of therapy: 72 hours sennosides- Yes [id number] 1{tbl} Take 1 [facility] docusate 2-09 tablet by ity of sodium 00:00: mouth 2 [place] 8.6-50 mg 00 (two) Medical per tablet times Branch daily. hydrocortis Yes [id number] Apply to [facility] one 2.5 % 11-21 affected ity of cream 00:00: area(s) 2 [place] 00 (two) Medical times Branch daily. blood sugar Yes [id number] Use to [facility] diagnostic 2 check ity of (FREESTYLE 00:00: blood [place] LITE 00 glucose Medical STRIPS) 4-5 times Branch strip daily. Polyethylen Yes [id number] 17g Take 1 Univers e Glycol 2-09 Packet by ity of 3350 17 00:00: mouth [place] gram powder 00 every 24 Medi jose c (twenty-fo Branch ur) hours as needed for Constipati on. sennosides- Yes [id number] 1{tbl} Take 1 Univers docusate 2-09 tablet by ity of sodium 00:00: mouth 2 [place] 8.6-50 mg 00 (two) Medical per tablet times Branch daily. hydrocortis Yes [id number] Apply to Univers one 2.5 % 2-09 affected ity of cream 00:00: area(s) 2 [place] 00 (two) Medical times Branch daily. blood sugar Yes [id number] Use to Univers diagnostic 11-21 check ity of (FREESTYLE 00:00: blood [place] LITE 00 glucose Medical STRIPS) 4-5 times Branch strip daily. Polyethylen Yes [id number] 17g Take 1 Univers e Glycol 2-09 Packet by ity of 3350 17 00:00: mouth [place] gram powder 00 every 24 Medi jose c (twenty-fo Branch ur) hours as needed for Constipati on. sennosides- Yes [id number] 1{tbl} Take 1 Univers docusate 2-09 tablet by ity of sodium 00:00: mouth 2 [place] 8.6-50 mg 00 (two) Medical per tablet times Branch daily. hydrocortis Yes [id number] Apply to Univers one 2.5 % 2-09 affected ity of cream 00:00: area(s) 2 [place] 00 (two) Medical times Branch daily. blood sugar Yes [id number] Use to Univers diagnostic 11-21 check ity of (FREESTYLE 00:00: blood [place] LITE 00 glucose Medical STRIPS) 4-5 times Branch strip daily. Polyethylen 2020-0 Yes [id number] 17g Take 1 Univers e Glycol 2-09 Packet by ity of 3350 17 00:00: mouth [place] gram powder 00 every 24 Medi jose c (twenty-fo Branch ur) hours as needed for Constipati on. sennosides- Yes [id number] 1{tbl} Take 1 Univers docusate 2-09 tablet by ity of sodium 00:00: mouth 2 [place] 8.6-50 mg 00 (two) Medical per tablet times Branch daily. hydrocortis Yes [id number] Apply to [facility] one 2.5 % 11-21 affected ity of cream 00:00: area(s) 2 [place] 00 (two) Medical times Branch daily. blood sugar Yes [id number] Use to [facility] diagnostic 11-21 check ity of (FREESTYLE 00:00: blood [place] LITE 00 glucose Medical STRIPS) 4-5 times Branch strip daily. Polyethylen Yes [id number] 17g Take 1 Univers e Glycol 11-21 Packet by ity of 3350 17 00:00: mouth [place] gram powder 00 every 24 Medi jose c (twenty-fo Branch ur) hours as needed for Constipati on. Insulin 2020- No [id number] 15U inject 15 Univers Glargine 11-21- Units ity of (LANTUS 00:00: 05:59 under the [employer] SOLOSTAR 00 :00 skin every Medic al U-100 morning Branch INSULIN) for 30 100 unit/mL days. (3 mL) injection venlafaxine 2020- No [id number] 150mg Take 1 Univers XR 150 mg 11-21 capsule by ity of 24 hr 00:00: 05:59 mouth 3 [place] capsule 00 :00 (three) Medical times Branch daily for 30 days. Insulin 2020- No [id number] 15U inject 15 Univers Glargine 11-21-12 Units ity of (LANTUS 00:00: 05:59 under the [employer] SOLOSTAR 00 :00 skin every Medic al U-100 morning Branch INSULIN) for 30 100 unit/mL days. (3 mL) injection venlafaxine 2020- No [id number] 150mg Take 1 Univers XR 150 mg 11-21- capsule by ity of 24 hr 00:00: 05:59 mouth 3 [place] capsule 00 :00 (three) Medical times Branch daily for 30 days. triamcinolo 2020- No [id number] Apply to [facility] ne 11-21-04 area(s) 2 ity of acetonide 00:00: 00:00 (two) [place] 0.1 % cream 00 :00 times Medical daily. Branch cephALEXin 2020- No [id number] 1000mg Take 2 Univers 500 mg 11-21 capsules ity of capsule 00:00: 00:00 by mouth 3 [place] 00 :00 (three) Medical times Branch daily. doxycycline 2020- No [id number] 100mg Take 1 Univers hyclate 100 11-21 capsule by i ty of mg capsule 00:00: 00:00 mouth [place] 00 :00 every 12 Medical (twelve) Branch hours. lactobacill 2020- No [id number] 1{tbl} Take 1 Univers us 11-21 tablet by ity of acidophilus 00:00: 00:00 mouth 2 [place] 25 million 00 :00 (two) Medical cell -100 times Branch mg captab daily. bisacodyL 2020- No [id number] 10mg Insert 1 Univers 10 mg 11-21 Suppositor ity of suppository 00:00: 00:00 y into [place] 00 :00 rectum at Medical bedtime as Branch needed for Constipati on. ALPRAZolam 2020- No [id number] .25mg Take 1 Univers (XANAX) 11-21 tablet by ity of 0.25 mg 00:00: 00:00 mouth 2 [place] tablet 00 :00 (two) Medical times Branch daily. hydrOXYzine 2020- No [id number] 20mg Take 2 Univers 10 mg 11-21 [...] 3 ity of 6 mg 01:13: (three) [place] capsule 36 times Medical daily. Branch Insulin 2019-10 Yes 15U inject 15 Unive rs Glargine 1-12 Units ity of (LANTUS 01:13: under the [place] SOLOSTAR) 36 skin. Medical 100 unit/mL Branch (3 mL) InPn INSULIN 2019-10 Yes 5U inject 5 Univer s ASPART 1-12 Units ity of (NOVOLOG 01:13: under the [facility] FLEXPEN SC) 36 skin. Medical Branch ALPRAZolam [...] 3 ity of 6 mg 01:13: (three) [place] capsule 36 times Medical daily. Branch Insulin 2019-10 Yes 15U inject 15 Unive rs Glargine 1-12 Units ity of (LANTUS 01:13: under the [place] SOLOSTAR) 36 skin. Medical 100 unit/mL Branch (3 mL) InPn INSULIN 2019-10 Yes 5U inject 5 Univer s ASPART 1-12 Units ity of (NOVOLOG 01:13: under the [facility] FLEXPEN [place]) 36 skin. Medical Branch ALPRAZolam [...] Units ity of (LANTUS 01:13: under the [place] SOLOSTAR) 36 skin. Medical 100 unit/mL Branch (3 mL) InPn INSULIN 2019-10 Yes 5U inject 5 Univer s ASPART 1-12 Units ity of (NOVOLOG 01:13: under the [facility] s FLEXPEN [place]) 36 skin. Medical Branch ALPRAZolam 2019-10 Yes .25mg Take 0.25 U nivers (XANAX) 1-12 mg by ity of 0.25 mg 01:13: mouth 2 [place] tablet 36 (two) Medical times Branch daily. HYDROXYZINE 2019-10 2020- No 25mg Take 25 mg Univers PAMOATE 1-11 11-11 by mouth ity of ORAL 20:04: 00:00 daily. [place] 34 :00 Medical Branch hydrocortis 2019-10 Yes [id number] Apply to Univers one 2.5 % 1-11 affected ity of cream 00:00: area(s) 2 [place] 00 (two) Medical times Branch daily. hydrOXYzine 2019-10 Yes [id number] 20mg Take 2 Univers 10 mg 1-11 tablets by ity of tablet 00:00: mouth [place] 00 every 8 Medical (eight) Branch hours as needed for Itching or Anxiety. Polyethylen 2019-10 Yes [id number] 17g Take 1 Univers e Glycol 1-11 Packet by ity of 3350 17 00:00: mouth [place] gram powder 00 every 24 Medi jose c (twenty-fo Branch ur) hours as needed for Constipati on. hydrocortis 2019-10 Yes [id number] Apply to Univers one 2.5 % 1-11 affected ity of cream 00:00: area(s) 2 [place] 00 (two) Medical times Branch daily. hydrOXYzine 2019- Yes [id number] 20mg Take 2 Univers 10 mg 1-11 tablets by ity of tablet 00:00: mouth [place] 00 every 8 Medical (eight) Branch hours as needed for Itching or Anxiety. Polyethylen 2019- Yes [id number] 17g Take 1 Univers e Glycol 1-11 Packet by ity of 3350 17 00:00: mouth [place] gram powder 00 every 24 Medi jose c (twenty-fo Branch ur) hours as needed for Constipati on. hydrocortis 2019- Yes [id number] Apply to Univers one 2.5 % 1-11 affected ity of cream 00:00: area(s) 2 [place] (two) Medical times Branch daily. hydrOXYzine 2019-10 Yes [id number] 20mg Take 2 Univers 10 mg 1-11 tablets by ity of tablet 00:00: mouth [place] 00 every 8 Medical (eight) Branch hours as needed for Itching or Anxiety. Polyethylen 2019- Yes [id number] 17g Take 1 Univers e Glycol 1-11 Packet by ity of 3350 17 00:00: mouth [place] gram powder 00 every 24 Medi jose c (twenty-fo Branch ur) hours as needed for Constipati on. hydrocortis 2019-10 Yes [id number] Apply to Univers one 2.5 % 1-11 affected ity of cream 00:00: area(s) 2 [place] (two) Medical times Branch daily. hydrOXYzine 2019-10 Yes [id number] 20mg Take 2 Univers 10 mg 1-11 tablets by ity of tablet 00:00: mouth [place] 00 every 8 Medical (eight) Branch hours as needed for Itching or Anxiety. Polyethylen 2019-10 Yes [id number] 17g Take 1 Univers e Glycol 1-11 Packet by ity of 3350 17 00:00: mouth [place] gram powder 00 every 24 Medi ojse c (twenty-fo Branch ur) hours as needed for Constipati on. hydrocortis 2019-10 Yes [id number] Apply to Univers one 2.5 % 1-11 affected ity of cream 00:00: area(s) 2 [place] 00 (two) Medical times Branch daily. hydrOXYzine 2019-10 Yes [id number] 20mg Take 2 Univers 10 mg 1-11 tablets by ity of tablet 00:00: mouth [place] 00 every 8 Medical (eight) Branch hours as needed for Itching or Anxiety. Polyethylen 2019- Yes [id number] 17g Take 1 Univers e Glycol 1-11 Packet by ity of 3350 17 00:00: mouth [place] gram powder 00 every 24 Medi jose c (twenty-fo Branch ur) hours as needed for Constipati on. hydrocortis 2019-10 Yes [id number] Apply to Univers one 2.5 % 1-11 affected ity of cream 00:00: area(s) 2 [place] 00 (two) Medical times Branch daily. hydrOXYzine 2019- Yes [id number] 20mg Take 2 Univers 10 mg 1-11 tablets by ity of tablet 00:00: mouth [place] 00 every 8 Medical (eight) Branch hours as needed for Itching or Anxiety. Polyethylen 2019- Yes [id number] 17g Take 1 Univers e Glycol 1-11 Packet by ity of 3350 17 00:00: mouth [place] gram powder 00 every 24 Medi jose c (twenty-fo Branch ur) hours as needed for Constipati on. hydrocortis 2019- Yes [id number] Apply to Univers one 2.5 % 1-11 affected ity of cream 00:00: area(s) 2 [place] 00 (two) Medical times Branch daily. hydrOXYzine 2019- Yes [id number] 20mg Take 2 Univers 10 mg 1-11 tablets by ity of tablet 00:00: mouth [place] 00 every 8 Medical (eight) Branch hours as needed for Itching or Anxiety. Polyethylen 2019- Yes [id number] 17g Take 1 Univers e Glycol 1-11 Packet by ity of 3350 17 00:00: mouth [place] gram powder 00 every 24 Medi jose c (twenty-fo Branch ur) hours as needed for Constipati on. triamcinolo 2019- 2020- No [id number] Apply to Univers ne 10-23 area(s) 2 ity of acetonide 00:00: 05:59 (two) [place] 0.1 % cream 00 :00 times Medical daily for Branch 14 days. triamcinolo 2019- 2020- No [id number] Apply to Univers ne 10-23 area(s) 2 ity of acetonide 00:00: 05:59 (two) [place] 0.1 % cream 00 :00 times Medical daily for Branch 14 days. triamcinolo 2020- 2020- No [id number] Apply to [facility] ne 10-23 area(s) 2 ity of acetonide 00:00: 05:59 (two) [place] 0.1 % cream 00 :00 times Medical daily for Branch 14 days. KCL 2019- 2020- No 40meq 40 mEq, Univers (KLOR-CON 1-10 11-10 Oral, ONCE ity of M20) tablet 16:15: 16:23 NOW, 1 Jeff as 40 mEq 00 :00 dose, [facility] 08/22/20 Branch at 1015, Routine HYDROmorpho 2019-10 Yes 1mg 1 mg, Unive rs ne 1-10 Oral, ity of (DILAUDID) 15:07: Q6HPRN, [place] tablet 1 mg 53 Starting [facility] 08/22/20 at 0907, Until Discontinu ed, Routine, Pain (scale 7-10) hydrocortis 2019-10 Yes Topical Uni vers one 2.5 % 1-10 (Apply To ity o f cream 02:00: Affected [place] 00 Areas), Medical BID, First Branch dose on [facility] 08/21/20 at 2000, Until Discontinu ed, Routine triamcinolo 2019-10 Yes Topical, Un toi ne 1-10 BID, First ity of acetonide 02:00: dose on [place] (TRIDERM) [facility] Medical 0.1 % cream 08/21/20 at Br anch 2000, Until Discontinu ed, Routine hydrOXYzine 2019-10 Yes 20mg 20 mg, Univ ers (ATARAX) 09 Oral, ity of tablet 20 17:39: Q8HPRN, [place] mg 12 Starting [facility] 08/21/20 at 1139, Until Discontinu ed, Routine, Itching, Anxiety sennosides- 2019-10 Yes 1{tbl} 1 tablet, Univers docusate 10-21 Oral, ity of sodium 15:00: DAILY, [place] (SENOKOT-S) 00 First dose Me dical 8.6-50 mg on [facility] per tablet 08/21/20 at 1 tablet 0900, [...] 25 59 :43 Starting Medica l mg [facility] 08/21/20 at 0656, Until Fri08/21/20 at 1139, Routine, Itching, Mild Rash, Congestion /Allergies , alternate with hydroxyzin e hydrOXYzine 2019-10- No 10mg 10 mg, Uni vers (ATARAX) 10-21 Oral, ity of tablet 10 10:20: 12:57 Q6HPRN, [place] mg 22 :12 Starting Medical [facility] 08/21/20 at 0420, Until Fri08/21/20 at 0657, Routine, Itching, Anxiety Sliding 2019-10 Yes Subcutaneo Univ ers Scale 1-09 us, Q4H, ity of Insulin - 10:00: [place] Aspart 00 (after Medical (NOVOLOG) + last Branch Fsbg modificati Testing on) on Fri08/21/20 at 0400, Until Discontinu ed, Routine lidocaine 5 2019-10 2020- No Topical, U nivers % ointment 10-21 ONCE, 1 ity o f 09:30: 09:14 dose, [facility] 00 :00 08/21/20 at [facility] 0330, Branch Routine Polyethylen 2019-10 Yes 17g 17 g, [facility] Glycol 10-21 Oral, ity of 3350 08:29: Z22QIUI, [place] (MIRALAX) 09 Starting Medica l powder 17 g [facility] 08/21/20 at 0229, Until Discontinu ed, Routine, [...] 1-3) sotalol 2019-10 2020- No Take by [facility] s (BETAPACE) 10-21 mouth ity of 240 mg 07:43: 00:00 every 12 [place] tablet 30 :00 (twelve) Medical hours. Branch blood sugar Yes Use to [facility] ers diagnostic 4-25 check ity of (FREESTYLE 00:00: blood [place] LITE 00 glucose Medical STRIPS) 4-5 times Branch strip daily. blood sugar Yes Use to [facility] ers diagnostic 4-25 check ity of (FREESTYLE 00:00: blood [place] LITE 00 glucose Medical STRIPS) 4-5 times Branch strip daily. blood sugar Yes Use to [facility] ers diagnostic 4-25 check ity of (FREESTYLE 00:00: blood [place] LITE 00 glucose Medical STRIPS) 4-5 times Branch strip daily. blood sugar Yes Use to [facility] ers diagnostic 4-25 check ity [...] 2021-08-22 13:00:00 148 mm[Hg] Univer sity of [facility] Diastolic blood 2021-08-22 13:00:00 84 mm[Hg] Unive rsity of [facility] Heart rate 2021-08-22 13:00:00 103 /min [facility] Respiratory rate 2021-08-22 13:00:00 18 /min [facility] Oxygen saturation in 2021-08-22 13:00:00 95 /min University of Arterial blood by [facility] Pulse oximetry [place] Body temperature 2021-08-22 12:22:00 36.72 [place] [facility] Systolic blood 2020-12-17 18:35:00 139 mm[Hg] Univer sity of [facility] Diastolic blood 2020-12-17 18:35:00 87 mm[Hg] Unive rsity of [facility] Heart rate 2020-12-17 18:35:00 110 /min [facility] Body temperature 2020-12-17 18:35:00 37.72 [place] [facility] Respiratory rate 2020-12-17 18:35:00 18 /min [facility] O[facility] saturation in 2020-12-17 18:35:00 93 /min University of Arterial blood by [facility] Pulse oximetry Branch Body height 2020-12-12 08:21:00 180.3 cm Universi ty of [place] [facility] Body weight 2020-12-12 08:21:00 103.42 kg Universi ty of [place] [facility] BMI 2020-12-12 08:21:00 31.80 kg/m2 Universi ty of [place] [facility] Systolic blood 2020-12-17 18:35:00 139 mm[Hg] Univer sity of pressure [place] [facility] Diastolic blood 2020-12-17 18:35:00 87 mm[Hg] Unive rsity of pressure [place] [facility] Heart rate 2020-12-17 18:35:00 110 /min Universi ty of [place] [facility] Body temperature 2020-12-17 18:35:00 37.72 [place] Univ ersity of [place] [facility] Respiratory rate 2020-12-17 18:35:00 18 /min Univ ersity of [place] [facility] Oxygen saturation in 2020-12-17 18:35:00 93 /min University of Arterial blood by [facility] Pulse oximetry Branch Body height 2020-12-12 08:21:00 180.3 cm Universi ty of [place] [facility] Body weight 2020-12-12 08:21:00 103.42 kg Universi ty of [place] [facility] BMI 2020-12-12 08:21:00 31.80 kg/m2 Universi ty of [place] [facility] Systolic blood 2020-08-23 19:27:00 140 mm[Hg] Univer sity of pressure [place] [facility] Diastolic blood 2020-08-23 19:27:00 79 mm[Hg] Unive rsity of pressure [place] [facility] Heart rate 2020-08-23 19:27:00 99 /min Universi ty of [place] [facility] Body temperature 2020-08-23 19:27:00 36 [place] Univ ersity of [place] [facility] Respiratory rate 2020-08-23 19:27:00 18 /min Univ ersity of [place] [facility] Oxygen saturation in 2020-08-23 19:27:00 93 /min University of Arterial blood by [facility] Pulse oximetry Branch Body weight 2020-08-21 07:20:00 104.962 kg Universi ty of [place] [facility] BMI 2020-08-21 07:20:00 32.27 kg/m2 Universi ty of [place] [facility] Systolic blood 2020-08-23 19:27:00 140 mm[Hg] Univer sity of pressure [facility] Diastolic blood 2020-08-23 19:27:00 79 mm[Hg] [facility] pressure [facility] Heart rate 2020-08-23 19:27:00 99 /min [facility] Body temperature 2020-08-23 19:27:00 36 [place] [facility] Respiratory rate 2020-08-23 19:27:00 18 /min [facility] Oxygen saturation in 2020-08-23 19:27:00 93 /min [facility] blood by [facility] Pulse oximetry [place] Body weight 2020-08-21 07:20:00 104.962 kg [facility] BMI 2020-08-21 07:20:00 32.27 kg/m2 [facility] Procedures Procedure Date / Time Performing Clinician Source Performed POCT GLUCOSE (AUTOMATED) 2020-12-17 15:42:00 Favio Harrisonal G Uni [facility] BASIC METABOLIC PANEL 2020-12-17 10:45:00 [facility] (NA, K, CL, CO2, GLUCOSE, Kaley Medica l Branch BUN, CREATININE, CA) CBC WITH DIFF 2020-12-17 10:45:00 [facility] POCT GLUCOSE (AUTOMATED) 2020-12-17 02:36:00 Harrison [facility] Uni [facility] XR TIBIA FIBULA 2 VW LEFT 2020-12-16 23:38:00 [facility] ([facility]OM[facility]) 2020-12-16 23:20:00 Harrison, [facility]al [facility] PO[facility] GLUCOSE (AUTOMATED) 2020-12-16 20:10:00 Harrison, Premal [facility] POCT GLUCOSE (AUTOMATED) 2020-12-16 14:43:00 [facility] BASIC METABOLIC PANEL 2020-12-16 13:51:00 [facility] (NA, K, CL, CO2, GLUCOSE, [place] Medica l Branch BUN, CREATININE, CA) CBC WITH DIFF 2020-12-16 13:51:00 [facility] POCT GLUCOSE (AUTOMATED) 2020-12-16 04:00:00 Harrison, Premal G Uni versity of [facility] POCT GLUCOSE (AUTOMATED) 2020-12-16 00:14:00 Harrison, Premal G Uni versity [facility] CT CHEST PULMONARY 2020-12-15 22:29:38 [facility] ANGIOGRAM [facility] POCT GLUCOSE (AUTOMATED) 2020-12-15 19:26:00 Harrison, Premal [facility] POCT GLUCOSE (AUTOMATED) 2020-12-15 15:13:00 Krupa, Premal G Uni [facility] HB ECG ROUTINE & RHYTHM 2020-12-15 14:25:27 Cailin Rmoo [facility] MAGNESIUM 2020-12-15 12:01:00 Paul [facility] BASIC METABOLIC PANEL 2020-12-15 12:01:00 [facility] (NA, K, CL, CO2, GLUCOSE, [place] Med[facility] l Branch BUN, CREATININE, CA) CBC WITH DIFF 2020-12-15 12:01:00 [facility] POCT GLUCOSE (AUTOMATED) 2020-12-15 03:57:00 Harrison, Premal G Uni versity of [facility] POCT GLUCOSE (AUTOMATED) 2020-12-14 23:31:00 Harrison, Premal G Uni versity of [facility] POCT GLUCOSE (AUTOMATED) 2020-12-14 19:08:00 Harrison, Premal G Uni versity of [facility] POCT GLUCOSE (AUTOMATED) 2020-12-14 15:11:00 Harrison, Premal G Uni versity of [facility] POCT GLUCOSE (AUTOMATED) 2020-12-14 02:36:00 Harrison, Premal G Uni versity of [facility] POCT GLUCOSE (AUTOMATED) 2020-12-13 23:32:00 Harrison, Premal G Uni versity of [facility] POCT GLUCOSE (AUTOMATED) 2020-12-13 18:08:00 Harrison, Premal G Uni versity of [facility] BASIC METABOLIC PANEL 2020-12-13 15:39:00 [facility] (NA, K, CL, CO2, GLUCOSE, [place] [facility] BUN, CREATININE, CA) CBC WITH DIFF 2020-12-13 15:39:00 [facility] POCT GLUCOSE (AUTOMATED) 2020-12-13 14:06:00 Harrison, Premal G Uni versity of [facility] POCT GLUCOSE (AUTOMATED) 2020-12-13 03:07:00 Harrison, Premal G Uni versity of [facility] POCT GLUCOSE (AUTOMATED) 2020-12-12 23:52:00 Harrison, Premal G Uni versity of [facility] POCT GLUCOSE (AUTOMATED) 2020-12-12 20:28:00 Harrison, Premal G Uni versity of [facility] POCT GLUCOSE (AUTOMATED) 2020-12-12 19:14:00 Harrison, Premal G Uni versity of [facility] POCT GLUCOSE (AUTOMATED) 2020-12-12 14:33:00 Harrison, Premal G Uni versity of [facility] MAGNESIUM 2020-12-12 08:58:00 [facility] BASIC METABOLIC PANEL 2020-12-12 08:58:00 [facility] (NA, K, CL, CO2, GLUCOSE, [place] [facility] BUN, CREATININE, CA) CBC WITH DIFF 2020-12-12 08:58:00 [facility] US ABDOMEN LIMITED 2020-12-12 06:32:26 Paul Bean [facility] POCT GLUCOSE (AUTOMATED) 2020-12-12 03:40:00 Harrison, Premal G Uni versity of [facility] POCT GLUCOSE (AUTOMATED) 2020-12-12 00:06:00 Harrison, Premal G Uni versity of [facility] XR HIPS 3 VW LEFT 2020-12-11 20:20:00 Paul Bean Sivakumar [facility] HB ECG ROUTINE & RHYTHM 2020-12-11 20:04:06 Demetrius [facility] STRIP [facility] VITAMIN B6, PLASMA 2020-12-11 19:17:00 [facility] POCT GLUCOSE (AUTOMATED) 2020-12-11 19:06:00 Vika Harrison [facility] CREATINE KINASE 2020-12-11 18:22:00 Parvez [facility] VITAMIN B12, LEVEL 2020-12-11 18:22:00 Vikas [facility] FOLATE 2020-12-11 18:22:00 [facility] THYROID STIMULATING 2020-12-11 18:22:00 Demetrius [facility] HORMONE [facility] PROCALCITONIN 2020-12-11 18:22:00 Vikas [facility] VITAMIN B1 (THIAMINE), 2020-12-11 18:22:00 [facility] HEAD WO CONTRAST 2020-12-11 14:07:35 Sweetie Stout [facility] URINALYSIS 2020-12-11 13:44:00 Singer [facility] URINE CULTURE 2020-12-11 13:44:00 Singer [facility] COVID-19 (ID NOW RAPID 2020-12-11 12:31:00 Paco [facility] TESTING) Medical Branch LAB ONLY COVID 2020-12-11 12:31:00 Singer [facility] INTERPRETATION [facility] XR CHEST 1 VW 2020-12-11 12:07:24 Singer [facility] BLOOD CULTURE SCREEN 2020-12-11 12:02:00 Paco [facility] MAGNESIUM 2020-12-11 12:02:00 Vikas [facility] FERRITIN SERUM 2020-12-11 12:02:00 Paul Bean [facility] Kaley [facility] COMP. METABOLIC PANEL 2020-12-11 12:02:00 Singer [facility] ([id number]) [facility] CBC WITH DIFF 2020-12-11 12:02:00 Singer [facility] LACTIC ACID WHOLE BLOOD 2020-12-11 12:02:00 Singer Paco [facility] BLOOD CULTURE SCREEN 2020-12-11 11:42:00 Singer Paco [facility] EMERGENCY SERVICES 2020-12-11 06:01:00 Doctor Unassigned, [facility] AGREEMENTS AND [place] [facility] [place] AUTHORIZATIONS HOSPITAL ADMISSION 2020-12-11 06:01:00 Doctor Unaowen, [facility] Name Medical [place] HOME HEALTH - OTHER 2020-11-11 06:01:00 Doctor Tabitha [facility] Name Medical [place] [facility] - OTHER 2020-10-30 06:01:00 Doctor Unaowen [facility] Name Medical [place] EXTERNAL PROVIDER RECORDS 2020-09-01 06:01:00 Doctor Tabitha, [facility] Name [facility] POCT GLUCOSE (AUTOMATED) 2020-08-23 18:09:00 Kelly [facility] POCT GLUCOSE (AUTOMATED) 2020-08-23 14:14:00 Kelly [facility] MAGNESIUM 2020-08-23 11:18:00 Ramya [facility] BASIC METABOLIC PANEL 2020-08-23 11:18:00 [place] [facility] (NA, K, CL, CO2, GLUCOSE, Medica l Branch BUN, CREATININE, CA) CBC WITH DIFF 2020-08-23 11:18:00 [place] [facility] POCT GLUCOSE (AUTOMATED) 2020-08-23 10:21:00 Kelly [facility] POCT GLUCOSE (AUTOMATED) 2020-08-23 05:55:00 Kelly [facility] POCT GLUCOSE (AUTOMATED) 2020-08-23 03:00:00 Stefania [facility] PO[facility]SE (AUTOMATED) 2020-08-22 23:38:00 Bety Washingtonmarie Elias versity of [facility] POCT GLUCOSE (AUTOMATED) 2020-08-22 19:04:00 Bety [place] [facility] POCT GLUCOSE (AUTOMATED) 2020-08-22 13:49:00 [place] Jada versity [facility] MAGNESIUM 2020-08-22 10:10:00 [facility] HE[facility] FUNCTION PANEL 2020-08-22 10:10:00 Aguila Melchor [facility] ([id number]) (ALB,T.PRO,BILI Medical Branch T,BU/BC,ALT,AST,ALK PHOS) BASIC METABOLIC PANEL 2020-08-22 10:10:00 [facility] (NA, K, CL, CO2, GLUCOSE, Medica l Branch BUN, CREATININE, CA) LIPID PANEL ([id number])(TOTAL 2020-08-22 10:10:00 [place], [facility] CHOLESTEROL, Medical [place] TRIGLYCERIDES, HDL) CBC WITH DIFF 2020-08-22 10:10:00 [facility] POCT GLUCOSE (AUTOMATED) 2020-08-22 10:10:00 Bety Washingtonmarie Elias [facility] POCT GLUCOSE (AUTOMATED) 2020-08-22 07:13:00 Kelly [place] Jada versity [facility] POCT GLUCOSE (AUTOMATED) 2020-08-22 02:24:00 Bety Washington[place] Elias versity [facility] POCT GLUCOSE (AUTOMATED) 2020-08-21 23:40:00 Kelly [place] Jada versity of [facility] POCT GLUCOSE (AUTOMATED) 2020-08-21 18:10:00 Kelly [place] Jada versity [facility] POCT GLUCOSE (AUTOMATED) 2020-08-21 13:39:00 [place] Jada versity [facility] ETHANOL 2020-08-21 12:35:00 [facility] 2020-08-21 12:35:00 Stefania [facility] GALV ONLY - SYPHILIS 2020-08-21 12:35:00 Stefania [facility] IGG/IGM [facility] LACTATE DEHYDROGENASE 2020-08-21 10:09:00 Ramya, [facility] GALV/CLC ONLY - URINE 2020-08-21 10:09:00 iRchie [facility] DRUG (IMMUNOASSAY) - 4 ER Medica l Branch PANEL URINALYSIS 2020-08-21 10:09:00 Ramya, [facility] URINE CULTURE 2020-08-21 10:09:00 Ramya, [facility] PROCALCITONIN 2020-08-21 10:09:00 [place], [facility] POCT GLUCOSE (AUTOMATED) 2020-08-21 09:41:00 Stefania Kelly [facility] PROTHROMBIN TIME / INR 2020-08-21 08:32:00 [place], [facility] ACTIVATED PARTIAL 2020-08-21 08:32:00 [place], [facility] C-REACTIVE PROTEIN 2020-08-21 08:31:00 Ramya, [facility] HEPATIC FUNCTION PANEL 2020-08-21 08:31:00 [place], [facility] ([id number]) (ALB,T.PRO,BILI Medical Branch T,BU/BC,ALT,AST,ALK PHOS) BASIC METABOLIC PANEL 2020-08-21 08:31:00 [place], [facility] (NA, K, CL, CO2, GLUCOSE, [facility] BUN, CREATININE, CA) SEDIMENTATION RATE 2020-08-21 08:31:00 [place], [facility] CBC WITH DIFF 2020-08-21 08:31:00 [place], [facility] GLYCOSYLATED HEMOGLOBIN 2020-08-21 08:31:00 [place], [facility] (A1C) Medical Branch HIV 1/2 AG-AB WITH REFLEX 2020-08-21 08:31:00 [place] [facility] [place] [facility] COVID-19 (ID NOW RAPID 2020-08-21 08:20:00 Haily [facility] TESTING) Medical Branch LAB ONLY COVID 2020-08-21 08:20:00 [place] [facility] [place] INTERPRETATION [facility] Branch Encounters Start End Encounter Admission Attending Care Care Encounter Source Date/Time Date/Time Type Type Clinicians Facility Department ID 2020-08-21 Inpatient U STEFANIA [facility] [id number] Univers 01:07:00 KELLY brandenana [facility] 2021-08-22 2021-08-22 Emergency [facility] [id number] Univers 06:21:00 08:02:00 SWEETIE cantu [facility] 2021-08-22 2021-08-22 Emergency [facility] [id number] Univers 06:21:00 08:02:00 Sweetie LOTT [id number] i ty of [id number] [id number] [facility] 084 Branch 2021-08-09 2021-08-09 Outpatient JACQUELYN HAINES [facility] [id number] [facility] 10:27:03 10:27:03 ADRIANA lopez of Medicin e 2020-12-28 2020-12-28 Telephone [facility] [id number] 00:00:00 00:00:00 Calvin H PRIMARY [id number] CARE [id number] PAVILLION [id number] 220 2020-12-28 2020-12-28 Telephone [facility] [id number] Univers 00:00:00 00:00:00 Calvin H PRIMARY [id number] it y of CARE [id number] [place] [id number] In dical 220 Branch 2020-12-19 2020-12-19 Transition Tuan Peters [id number] 00:00:00 00:00:00 of Care Ruchi Braswell [id number] [place] [id number] 2020-12-19 2020-12-19 Transition Tuan Peters [id number] Univers 00:00:00 00:00:00 of Care Ruchi Braswell [id number] it y of [id number] [place] [id number] [facility] 403 Branch 2020-12-11 2020-12-17 [facility] Paco Lacey [id number] 05:11:00 16:00:00 Encounter Vika Harrison Grulla [id number] [facility] [id number] [id number] [facility] 2020-12-11 2020-12-17 [facility] Paco Lacey [id number] [facility] 05:11:00 16:00:00 Encounter Vika Harrison Grulla [id number] ity [facility] [id number] [place] [address] [id number] [facility] 096 Branch 2020-12-11 2020-12-17 Inpatient [facility] [id number] Univers 05:11:00 16:00:00 pepe [facility] 2020-11-16 2020-11-16 Emergency X [facility] ERT [id number] [facility] 09:31:00 09:31:00 PACO cantu [facility] 2020-11-11 2020-11-11 Orders Doctor CUI [id number] 00:00:00 00:00:00 Only UnassignedMONIQUE [id number] [place] [facility] 4.2.7.2.686 [id number] 2020-11-11 2020-11-11 Orders Doctor CUI [id number] [facility] 00:00:00 00:00:00 Only Unassigned, MONIQUE [id number] ity of [place] [facility] [id number] Jeff as [id number] [address] 2020-11-07 2020-11-07 [facility] [id number] 00:00:00 00:00:00 Angi Lott [id number] [place] [id number] Professio [id number] [address] 2020-11-07 2020-11-07 Telephone [facility] [id number] [facility] 00:00:00 00:00:00 Angi Lott [id number] ity of [id number] Profess[place] [id number] In dic[address] 2020-10-30 2020-10-30 Orders Doctor BASILIA 1.2.840.114 [id number] 00:00:00 00:00:00 Only Unassigned, MONIQUE [id number] [facility] [id number] [facility] 2020-10-30 2020-10-30 Orders Doctor BASILIA [id number] [facility] 00:00:00 00:00:00 Only Unassigned, MONIQUE [id number] ity of [facility] [id number] Jeff as [id number] [address] 2020-09-26 2020-09-26 Telephone [facility] 1.2.840.114 [id number] 00:00:00 00:00:00 [facility] 350.1.13.10 CLINICS 4.2.7.2.686 [id number] [facility] 2020-09-26 2020-09-26 Telephone Eliot [facility] 1.2.840.114 [id number] [facility] 00:00:00 00:00:00 [facility] 350.1.13.10 i ty of [id number] [address] 2020-09-01 2020-09-01 Orders Doctor BASILIA 1.2.840.114 [id number] 00:00:00 00:00:00 Only Unassigned, MONIQUE 350.1.13.10 [place] [facility] 4.2.7.2.686 [id number] 009 2020-09-01 2020-09-01 Orders Doctor BASILIA 1.2.840.114 [id number] [facility] 00:00:00 00:00:00 Only Unassigned, MONIQUE 350.1.13.10 ity of [place] [facility] 4.2.7.2.686 Jeff as [id number] [facility] [address] 2020-08-25 2020-08-25 Transition Tuan Peters 1.2.840.114 [id number] 00:00:00 00:00:00 of Care Ruchi Braswell 350.1.13.10 [place] 4.2.7.2.686 [id number] 2020-08-25 2020-08-25 Transition Tuan Peters 1.2.840.114 [id number] Univers 00:00:00 00:00:00 of Care Ruchi Braswell 350.1.13.10 it y of [place] [id number] [facility] [address] 2020-08-21 2020-08-23 [facility] Ayleen 1.2.840.114 [id number] 01:07:00 18:35:00 Encounter Kelly Monique 350.1.13.10 [facility] 4.2.7.2.686 [id number] [facility] 2020-08-21 2020-08-23 [facility] 1. 2.840.114 [id number] [facility] 01:07:00 18:35:00 Encounter Mukul Gallardo 350.1.13. 10 ity of [facility] 4.2.7.2.686 Jeff as [id number] [address] Results Test Description Test Time Test Comments Results Result Comments Source POCT GLUCOSE (AUTOMATED) 2020-12-17 15:43:35 Test Item Value Reference Range Interpretation Comme nts POCT GLU (test code = 6955197009) 129 mg/dL 70-110 H Lab Interpretation (test code = 81729-3) [facility] (NA, K, CL, CO2, GLUCOSE, BUN, CREATININE, CA)2020-12-17 11:45:07 Test Item Value Reference Range Interpretation Comments NA (test code = 137 mmol/L 135-145 5584232774) K (test code = 3.5 mmol/L 3.5-5.0 3104941471) CL (test code = 103 mmol/L 98-108 5401443715) CO2 TOTAL (test code = 26 mmol/L 23-31 4329269868) AGAP (test code = 2-16 8949778411) BUN (test code = 11 mg/dL 7-23 7475111191) GLUCOSE (test code = 175 mg/dL 70-110 H 2932218223) CREATININE (test code = 0.62 mg/dL 0.60-1.25 8878995957) CALCIUM (test code = 9.0 mg/dL 8.6-10.6 4035135123) eGFR Calculation mL/min/1.73m2 (Non-) (test code = 4086536634) eGFR Calculation mL/min/1.73m2 () (test code = 7605979067) JAMES (test code = JAMES) Association of [...] tests). Lab Interpretation Abnormal (test code = 50480-8) [facility] WITH [id number] 11:07:27 Test Item Value Reference Range Interpretation [...] RDW-SD (test code = 45.2 fL 38.5-51.6 77098-3) RDW-CV (test code = 16.9 % 12.1-15.4 H 788-0) PLT (test code = See_Comment H [Automated 777-3) message] The sy stem which generated this result transmitted reference range : 150 - 328 10*3/ ?L. The reference r torito was not used to interpret this result as normal/abnormal . MPV (test code = 8.1 fL 9.8-13.0 L 06839-9) NRBC/100 WBC (test See_Comment [Automat ed code = 4823813485) message] The system which generated this result transmitted reference range : 0.0 - 10.0 /100 WBCs. The refer ence range was not u sed to interpret th is result as normal/abnormal . NRBC x10^3 (test code <0.01 See_Comment [Auto mated = 2933514594) message] The s ystem which generated this result transmitted reference range : 10*3/?L. The reference range was not used to interpret this result as normal/abnormal . GRAN MAT (NEUT) % 72.8 % (test code = 770-8) IMM GRAN % (test code 0.60 % = 1024612552) LYMPH % (test code = 18.4 % 736-9) MONO % (test code = 5.7 % 5905-5) EOS % (test code = 1.8 % 713-8) BASO % (test code = 0.7 % 706-2) GRAN MAT x10^3(ANC) 8.23 10*3/uL 1.99-6.95 H (test code = 4498475176) IMM GRAN x10^3 (test 0.07 10*3/uL 0.00-0.06 H code = 2026582029) LYMPH x10^3 (test code 2.08 10*3/uL 1.09-3.23 = 731-0) MONO x10^3 (test code 0.65 10*3/uL 0.36-1.02 = 742-7) EOS x10^3 (test code = 0.20 10*3/uL 0.06-0.53 711-2) BASO x10^3 (test code 0.08 10*3/uL 0.01-0.09 = 704-7) Lab Interpretation Abnormal (test code = 86370-5) [facility]2020-12-17 06:03:38 Test Item Value Reference Range Interpretation Comments POCT GLU (test code = 8462051561) 75 mg/dL 70-110 Lab Interpretation (test code = Normal 74240-8) [facility], [id number] 00:01:00 Test Item Value Reference Range Interpretation Comments VIT B6 (test code = 13.1 nmol/L 20.0-125.0 L INTERPRE TIVE 64038-4) INFORMATION: Vi tamin B6 (Pyridoxal 5-Phosphate) Pyridoxal 5'-phosphate me asured in a specimen collected follo wing an 8-hour or overnight fast accurately clara keene vitamin B6 nutritional sta tus. Non-fasting spe cimen concentration reflects recent vitamin intake. This test was develo ped and its perform ance characteristics determined by A [facility] Laboratories. I t has not been cleare d or approved by the [place] Food and Drug Administration. This test was perfor med in a CLIA certifie d laboratory and is intended for cl inical purposes.Perfor med By: [employer] [place] [address] [id number] Director: Namrata Klein MD Lab Interpretation Abnormal (test code = 20441-5) [facility] TIBIA FIBULA 2 VW [id number] 23:57:09 Tricompartmental knee joint osteoarthrosis.XR TIBIA FIBULA [...] No acute fracture or dislocation.IMPRESSIONTricompartmental knee joint osteoarthrosis.[facility] GLUCOSE (AUTOMATED) 2020-12-16 23:27:00 Test Item Value Reference Range Interpretation Comments POCT GLU (test code = 7796251051) 114 mg/dL 70-110 H Lab Interpretation (test code = Abnormal 95230-5) [facility] GLUCOSE (AUTOMATED)2020-12-16 20:12:00 Test Item Value Reference Range Interpretation Comments POCT GLU (test code = 5985945750) 105 mg/dL 70-110 Lab Interpretation (test code = Normal 18472-9) [facility] GLUCOSE (AUTOMATED)2020-12-16 14:44:00 Test Item Value Reference Range Interpretation Comments POCT GLU (test code = 9880403333) 153 mg/dL 70-110 H Lab Interpretation (test code = Abnormal 81779-9) [facility] METABOLIC PANEL (NA, K, CL, CO2, GLUCOSE, BUN, CREATININE, CA)2020-12-16 14:23:00 Test Item Value Reference Range Interpretation Comments NA (test code = 138 mmol/L 135-145 5592300300) K (test code = 3.4 mmol/L 3.5-5.0 L 9406575546) CL (test code = 100 mmol/L 98-108 4779663530) CO2 TOTAL (test code = 31 mmol/L 23-31 0560552969) AGAP (test code = 2-16 5850977324) BUN (test code = 11 mg/dL 7-23 9475051246) GLUCOSE (test code = 162 mg/dL 70-110 H 0763550616) CREATININE (test code = 0.64 mg/dL 0.60-1.25 2610900402) CALCIUM (test code = 8.9 mg/dL 8.6-10.6 2468223360) eGFR Calculation mL/min/1.73m2 (Non-) (test code = 9230416954) eGFR Calculation mL/min/1.73m2 () (test code = 0454467751) JAMES (test code = JAMES) Association of [...] tests). Lab Interpretation Abnormal (test code = 44334-4) [facility] WITH [id number] 14:05:00 Test Item Value Reference Range Interpretation [...] RDW-SD (test code = 45.4 fL 38.5-51.6 32581-3) RDW-CV (test code = 17.0 % 12.1-15.4 H 788-0) PLT (test code = See_Comment H [Automated 777-3) message] The sy stem which generated this result transmitted reference range : 150 - 328 10*3/ ?L. The reference r torito was not used to interpret this result as normal/abnormal . MPV (test code = 8.0 fL 9.8-13.0 L 59381-3) NRBC/100 WBC (test See_Comment [Automat ed code = 2274964198) message] The system which generated this result transmitted reference range : 0.0 - 10.0 /100 WBCs. The refer ence range was not u sed to interpret th is result as normal/abnormal . NRBC x10^3 (test code <0.01 See_Comment [Auto mated = 2465404353) message] The s ystem which generated this result transmitted reference range : 10*3/?L. The reference range was not used to interpret this result as normal/abnormal . GRAN MAT (NEUT) % 70.0 % (test code = 770-8) IMM GRAN % (test code 0.70 % = 9179835280) LYMPH % (test code = 20.5 % 736-9) MONO % (test code = 7.1 % 5905-5) EOS % (test code = 1.0 % 713-8) BASO % (test code = 0.7 % 706-2) GRAN MAT x10^3(ANC) 9.44 10*3/uL 1.99-6.95 H (test code = 2104285714) IMM GRAN x10^3 (test 0.09 10*3/uL 0.00-0.06 H code = 4659391810) LYMPH x10^3 (test code 2.76 10*3/uL 1.09-3.23 = 731-0) MONO x10^3 (test code 0.96 10*3/uL 0.36-1.02 = 742-7) EOS x10^3 (test code = 0.13 10*3/uL 0.06-0.53 711-2) BASO x10^3 (test code 0.10 10*3/uL 0.01-0.09 H = 704-7) Lab Interpretation Abnormal (test code = 93163-8) [facility] - Peripheral # [id number] 13:01:00 Test Item Value Reference Range Interpretation Comments Blood Culture-Aerobic No organisms No growth Previo us (test code = 68983-2) isolated prelim inary verified result was Culture In Progress on 12/11/2020 at 100 1 CSTPrevious preliminary verified result was No growth a t 24 hours on 12/12/2020 at 070 1 CSTPrevious preliminary verified result was No growth a t 48 hours on 12/13/2020 at 070 1 CSTPrevious preliminary verified result was No growth a t 72 hours on 12/14/2020 at 070 1 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 Blood No organisms No growth Previous Culture-Anaerobic isolated preliminar y (test code = 91112-6) verifi ed result was Culture In Progress on 12/11/2020 at 100 1 CSTPrevious preliminary verified result was No growth a t 24 hours on 12/12/2020 at 070 1 CSTPrevious preliminary verified result was No growth a t 48 hours on 12/13/2020 at 070 1 CSTPrevious preliminary verified result was No growth a t 72 hours on 12/14/2020 at 070 1 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 Lab Interpretation Normal (test code = 84583-4) [facility] Culture - Peripheral # [id number] 13:01:00 Test Item Value Reference Range Interpretation Comments Blood Culture-Aerobic No organisms No growth Previo us (test code = 93951-5) isolated prelim inary verified result was Culture In Progress on 12/11/2020 at 100 1 CSTPrevious preliminary verified result was No growth a t 24 hours on 12/12/2020 at 070 1 CSTPrevious preliminary verified result was No growth a t 48 hours on 12/13/2020 at 070 1 CSTPrevious preliminary verified result was No growth a t 72 hours on 12/14/2020 at 070 1 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 Blood No organisms No growth Previous Culture-Anaerobic isolated preliminar y (test code = 74857-8) verifi ed result was Culture In Progress on 12/11/2020 at 100 1 CSTPrevious preliminary verified result was No growth a t 24 hours on 12/12/2020 at 070 1 CSTPrevious preliminary verified result was No growth a t 48 hours on 12/13/2020 at 070 1 CSTPrevious preliminary verified result was No growth a t 72 hours on 12/14/2020 at 070 1 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 Lab Interpretation Normal (test code = 64326-4) [facility] GLUCOSE (AUTOMATED)2020-12-16 04:01:00 Test Item Value Reference Range Interpretation Comments POCT GLU (test code = 8233635140) 156 mg/dL 70-110 H Lab Interpretation (test code = Abnormal 25714-4) [facility]2020-12-16 00:24:00 Test Item Value Reference Range Interpretation Comments POCT GLU (test code = 9180520513) 115 mg/dL 70-110 H Lab Interpretation (test code = Abnormal 87225-6) [facility] CHEST PULMONARY [id number] 23:34:55No pulmonary emboli. No interval change in [...] stableappearance of intra and extrahepatic biliary ductal dilatation.[facility] GLUCOSE (AUTOMATED)2020-12-15 19:28:00 Test Item Value Reference Range Interpretation Comments POCT GLU (test code = 9069936970) 140 mg/dL 70-110 H Lab Interpretation (test code = Abnormal 29106-9) [facility]2021-[facility]-05 15:26:00 Test Item Value Reference Range Interpretation Comments MAGNESIUM (test code = 5728411050) 2.2 mg/dL 1.7-2.4 Lab Interpretation (test code = Normal 03959-2) [facility] GLUCOSE (AUTOMATED)2020-12-15 15:15:00 Test Item Value Reference Range Interpretation Comments POCT GLU (test code = 2807027002) 181 mg/dL 70-110 H Lab Interpretation (test code = Abnormal 08922-5) [facility] METABOLIC PANEL (NA, K, CL, CO2, GLUCOSE, BUN, CREATININE, CA)2020-12-15 13:07:00 Test Item Value Reference Range Interpretation Comments NA (test code = 136 mmol/L 135-145 4183562034) K (test code = 3.6 mmol/L 3.5-5.0 2810370830) CL (test code = 96 mmol/L 98-108 L 1215606958) CO2 TOTAL (test code = 29 mmol/L 23-31 3530090618) AGAP (test code = 2-16 3408023223) BUN (test code = 12 mg/dL 7-23 5259393601) GLUCOSE (test code = 183 mg/dL 70-110 H 4145977811) CREATININE (test code = 0.70 mg/dL 0.60-1.25 6995709038) CALCIUM (test code = 9.2 mg/dL 8.6-10.6 9579479884) eGFR Calculation mL/min/1.73m2 (Non-) (test code = 5998250956) eGFR Calculation mL/min/1.73m2 () (test code = 9475503350) JAMES (test code = JAMES) Association of [...] tests). Lab Interpretation Abnormal (test code = 13585-5) [facility] WITH [id number] 12:32:00 Test Item Value Reference Range Interpretation Comments WBC (test code = See_Comment H [Automated 7090-2) message] The system which generated this result transmit ronan reference range : 4.20 - 10.70 10*3/?L. The reference range was not used to interpret this result as normal/abnormal . RBC (test code = See_Comment H [Automated 289-8) message] The system which generated this result [...] RDW-SD (test code = 44.4 fL 38.5-51.6 09195-7) RDW-CV (test code = 17.7 % 12.1-15.4 H 788-0) PLT (test code = See_Comment H [Automated 777-3) message] The system which generated this result transmit ronan reference range : 150 - 328 10*3/ ?L. The reference range was not u sed to interpret th is result as normal/abnormal . MPV (test code = 8.1 fL 9.8-13.0 L 79735-3) NRBC/100 WBC (test See_Comment [Automat ed code = 5368666744) message] The system which generated this result transmit ronan reference range : 0.0 - 10.0 /100 WBCs. The reference range was not used to interpret this result as normal/abnormal . NRBC x10^3 (test code <0.01 See_Comment [Auto mated = 5525365012) message] The system which generated this result transmit ronan reference range : 10*3/?L. The reference range was not used to interpret this result as normal/abnormal . GRAN MAT (NEUT) % 74.5 % (test code = 770-8) IMM GRAN % (test code 0.70 % = 6402134139) LYMPH % (test code = 17.4 % 736-9) MONO % (test code = 6.8 % 5905-5) EOS % (test code = 0.2 % 713-8) BASO % (test code = 0.4 % 706-2) GRAN MAT x10^3(ANC) 11.99 10*3/uL 1.99-6.95 H (test code = 6696927801) IMM GRAN x10^3 (test 0.11 10*3/uL 0.00-0.06 H code = 4152562395) LYMPH x10^3 (test code 2.80 10*3/uL 1.09-3.23 = 731-0) MONO x10^3 (test code 1.10 10*3/uL 0.36-1.02 H = 742-7) EOS x10^3 (test code = 0.03 10*3/uL 0.06-0.53 L 711-2) BASO x10^3 (test code 0.06 10*3/uL 0.01-0.09 = 704-7) Lab Interpretation Abnormal (test code = 18529-0) [facility] GLUCOSE (AUTOMATED)2020-12-15 04:16:00 Test Item Value Reference Range Interpretation Comments POCT GLU (test code = 5349796034) 200 mg/dL 70-110 H Lab Interpretation (test code = Abnormal 99690-9) [facility] (THIAMINE), WHOLE [id number] 00:30:00 Test Item Value Reference Range Interpretation Comments Vitamin B1, Whole 136 nmol/L 70-180 INTERPRETI VE INFORMATION: Blood (test code = Vitamin B 1, Whole Blood 70484-9) This assay júnior ures the concentration o [...] characteristics determined by A [facility]. I t has not been cleared or approved by the [place] Food and Drug Administration. This test was performed i n a CLIA certified labor atory and is intended for clinical purposes.Perfor med By: [facility] [employer] [facility] [place], [place] [address]N aboratory Director: Namrata Klein MD [facility] GLUCOSE (AUTOMATED)2020-12-14 23:35:00 Test Item Value Reference Range Interpretation Comments POCT GLU (test code = 7931672739) 151 mg/dL 70-110 H Lab Interpretation (test code = Abnormal 39074-4) [facility] GLUCOSE (AUTOMATED)2020-12-14 19:19:00 Test Item Value Reference Range Interpretation Comments POCT GLU (test code = 2529539623) 193 mg/dL 70-110 H Lab Interpretation (test code = Abnormal 33051-8) [facility] GLUCOSE (AUTOMATED)2020-12-14 15:22:00 Test Item Value Reference Range Interpretation Comments POCT GLU (test code = 7569208898) 221 mg/dL 70-110 H Lab Interpretation (test code = Abnormal 32475-7) [facility] GLUCOSE (AUTOMATED)2020-12-14 02:37:00 Test Item Value Reference Range Interpretation Comments POCT GLU (test code = 3267206522) 210 mg/dL 70-110 H Lab Interpretation (test code = Abnormal 77222-1) [facility] GLUCOSE (AUTOMATED)2020-12-13 23:33:00 Test Item Value Reference Range Interpretation Comments POCT GLU (test code = 9780330045) 182 mg/dL 70-110 H Lab Interpretation (test code = Abnormal 59186-5) [facility] GLUCOSE (AUTOMATED)2020-12-13 18:09:00 Test Item Value Reference Range Interpretation Comments POCT GLU (test code = 9757464290) 150 mg/dL 70-110 H Lab Interpretation (test code = Abnormal 24801-6) [facility] METABOLIC PANEL (NA, K, CL, CO2, GLUCOSE, BUN, CREATININE, CA)2020-12-13 16:27:00 Test Item Value Reference Range Interpretation Comments NA (test code = 136 mmol/L 135-145 1905553945) K (test code = 3.7 mmol/L 3.5-5.0 0634996565) CL (test code = 96 mmol/L 98-108 L 7060013633) CO2 TOTAL (test code = 29 mmol/L 23-31 9091710857) AGAP (test code = 2-16 3717821292) BUN (test code = 6 mg/dL 7-23 L 3679695057) GLUCOSE (test code = 212 mg/dL 70-110 H 8494034343) CREATININE (test code = 0.61 mg/dL 0.60-1.25 8622608540) CALCIUM (test code = 9.5 mg/dL 8.6-10.6 4855618064) eGFR Calculation mL/min/1.73m2 (Non-) (test code = 6067026985) eGFR Calculation mL/min/1.73m2 () (test code = 1277201721) JAMES (test code = JAMES) Association of [...] tests). Lab Interpretation Abnormal (test code = 33526-0) [facility] WITH [id number] 16:10:00 Test Item Value Reference Range Interpretation Comments WBC (test code = See_Comment H [Automated 8290-2) message] The sy stem which generated this [...] RDW-SD (test code = 43.3 fL 38.5-51.6 15191-3) RDW-CV (test code = 16.2 % 12.1-15.4 H 788-0) PLT (test code = See_Comment H [Automated 777-3) message] The sy stem which generated this result transmitted reference range : 150 - 328 10*3/ ?L. The reference r torito was not used to interpret this result as normal/abnormal . MPV (test code = 8.2 fL 9.8-13.0 L 49575-6) NRBC/100 WBC (test See_Comment [Automat ed code = 4862961274) message] The system which generated this result transmitted reference range : 0.0 - 10.0 /100 WBCs. The refer ence range was not u sed to interpret th is result as normal/abnormal . NRBC x10^3 (test code <0.01 See_Comment [Auto mated = 6146465816) message] The s ystem which generated this result transmitted reference range : 10*3/?L. The reference range was not used to interpret this result as normal/abnormal . GRAN MAT (NEUT) % 86.2 % (test code = 770-8) IMM GRAN % (test code 0.70 % = 0966371141) LYMPH % (test code = 10.2 % 736-9) MONO % (test code = 2.5 % 5905-5) EOS % (test code = 0.1 % 713-8) BASO % (test code = 0.3 % 706-2) GRAN MAT x10^3(ANC) 9.61 10*3/uL 1.99-6.95 H (test code = 5978734822) IMM GRAN x10^3 (test 0.08 10*3/uL 0.00-0.06 H code = 6121070539) LYMPH x10^3 (test code 1.14 10*3/uL 1.09-3.23 = 731-0) MONO x10^3 (test code 0.28 10*3/uL 0.36-1.02 L = 742-7) EOS x10^3 (test code = <0.03 0.06-0.53 L 711-2) BASO x10^3 (test code 0.03 10*3/uL 0.01-0.09 = 704-7) Lab Interpretation Abnormal (test code = 77099-3) [facility]2020-12-13 14:16:00 Test Item Value Reference Range Interpretation Comments POCT GLU (test code = 8378426800) 236 mg/dL 70-110 H Lab Interpretation (test code = Abnormal 52255-4) [facility] COVID [id number] 04:58:00COVID DMT InterpretationInterpretation/Recommendations: Molecular NAAT Tests for [...] [facility] SERVICESCOVID UhkxozfKDNG-QeE-9 Rapid ID NOW (no units) ? ? Date ? Value ? 12/11/2020 ? Not Detected ? ? ? 11/16/2020 ? Not Detected ? ? ? 08/21/2020 ? Not Detected ? [facility]Un[facility] 2020-12-13 03:11:00 Test Item Value Reference Range Interpretation Comments POCT GLU (test code = 8568915236) 171 mg/dL 70-110 H Lab Interpretation (test code = Abnormal 30604-6) [facility] GLUCOSE (AUTOMATED)2020-12-13 00:00:00 Test Item Value Reference Range Interpretation Comments POCT GLU (test code = 2727535703) 118 mg/dL 70-110 H Lab Interpretation (test code = Abnormal 19576-8) [facility] GLUCOSE (AUTOMATED)2020-12-12 20:29:00 Test Item Value Reference Range Interpretation Comments POCT GLU (test code = 5433772398) 173 mg/dL 70-110 H Lab Interpretation (test code = Abnormal 29729-5) [facility] [id number] 19:56:17 1. ?Hepatic steatosis. However, limited evaluation of the liver on theseimages.2. ?CBD is normal and measures 0.5 cm. Preliminary Report Dictated by Resident: Mickey Haro ?MD Shemar.,have reviewed this study and agree with the abovereport.EXAM: US ABDOMEN LIMITED HISTORY: 70 years-old male with RUQ ultrasound to assess for common bileduct dilation . TECHNIQUE: Limited abdominal ultrasound focused on the liver, biliarysystem, pancreas, and spleen was performed. The main portal veinwasevaluated with color Doppler imaging. [employer] images were obtainedfor the record. COMPARISON: Ultrasound [...] normal where visualized. SPLEEN:No images were obtained. [facility], Radiant Results Inft User - 12/12/2020 1:57 PM CSTEXAM: US ABDOMEN LIMITEDHISTORY: 70 years-old male with RUQ ultrasound to assess for common bileduct dilation .TECHNIQUE: Limited abdominal ultrasound focused on the liver, biliarysystem, pancreas, and spleen was performed. The main portal vein wasevaluated with color Doppler imaging. [employer] images wereobtainedfor the record.COMPARISON: Ultrasound abdomen 11/17/2028. [...] this study and agree with the abovereport.[facility]2020-12-12 19:24:00 Test Item Value Reference Range Interpretation Comments POCT GLU (test code = 5508696509) 230 mg/dL 70-110 H Lab Interpretation (test code = Abnormal 86804-3) [facility] CHEST 1 [id number] 15:16:46 Low lung volumes with mild perihilar [...] reviewed this study and agree with theabove report.[facility]2020-12-12 14:34:00 Test Item Value Reference Range Interpretation Comments POCT GLU (test code = 3719444235) 225 mg/dL 70-110 H Lab Interpretation (test code = Abnormal 38066-1) [facility] [id number] 13:28:00 Test Item Value Reference Range Interpretation Comments URINE CULTURE (test < 10,000 CFU/mL mixed code = 630-4) aerobic organisms - suggests endogenous microbial contamination [facility] (NA, K, CL, CO2, GLUCOSE, BUN, CREATININE, CA)2020-12-12 10:05:00 Test Item Value Reference Range Interpretation Comments NA (test code = 136 mmol/L 135-145 4431774790) K (test code = 3.5 mmol/L 3.5-5.0 0394018366) CL (test code = 100 mmol/L 98-108 9312638157) CO2 TOTAL (test code = 31 mmol/L 23-31 4588007626) AGAP (test code = 2-16 4077991552) BUN (test code = 7 mg/dL 7-23 7026443809) GLUCOSE (test code = 259 mg/dL 70-110 H 3460692364) CREATININE (test code = 0.63 mg/dL 0.60-1.25 4554737298) CALCIUM (test code = 8.5 mg/dL 8.6-10.6 L 3040111444) eGFR Calculation mL/min/1.73m2 (Non-) (test code = 6466692322) eGFR Calculation mL/min/1.73m2 () (test code = 3520801513) JAMES (test code = JAMES) Association of [...] tests). Lab Interpretation Abnormal (test code = 25096-4) [facility] [id number] 10:05:00 Test Item Value Reference Range Interpretation Comments MAGNESIUM (test code = 6228316832) 1.9 mg/dL 1.7-2.4 Lab Interpretation (test code = Normal 67953-1) [facility] with Daowffmjbeoz0478-36-38 09:48:00 Test Item Value Reference Range Interpretation Comments WBC (test code = See_Comment [Automated 7174-2) message] The sy stem which generated this result transmitted reference range : 4.20 - 10.70 10*3/?L. The reference range was not used to interpret this result as normal/abnormal . RBC (test code = See_Comment [Automated 103-8) message] The sy stem which generated this [...] RDW-SD (test code = 46.0 fL 38.5-51.6 40658-0) RDW-CV (test code = 16.1 % 12.1-15.4 H 788-0) PLT (test code = See_Comment H [Automated 777-3) message] The sy stem which generated this result transmitted reference range : 150 - 328 10*3/ ?L. The reference r torito was not used to interpret this result as normal/abnormal . MPV (test code = 8.6 fL 9.8-13.0 L 97376-0) NRBC/100 WBC (test See_Comment [Automat ed code = 6516304299) message] The system which generated this result transmitted reference range : 0.0 - 10.0 /100 WBCs. The refer ence range was not u sed to interpret th is result as normal/abnormal . NRBC x10^3 (test code <0.01 See_Comment [Auto mated = 6917086492) message] The s ystem which generated this result transmitted reference range : 10*3/?L. The reference range was not used to interpret this result as normal/abnormal . GRAN MAT (NEUT) % 70.2 % (test code = 770-8) IMM GRAN % (test code 0.30 % = 0541954422) LYMPH % (test code = 18.8 % 736-9) MONO % (test code = 5.0 % 5905-5) EOS % (test code = 5.2 % 713-8) BASO % (test code = 0.5 % 706-2) GRAN MAT x10^3(ANC) 6.05 10*3/uL 1.99-6.95 (test code = 4984673871) IMM GRAN x10^3 (test 0.03 10*3/uL 0.00-0.06 code = 7914191737) LYMPH x10^3 (test code 1.62 10*3/uL 1.09-3.23 = 731-0) MONO x10^3 (test code 0.43 10*3/uL 0.36-1.02 = 742-7) EOS x10^3 (test code = 0.45 10*3/uL 0.06-0.53 711-2) BASO x10^3 (test code 0.04 10*3/uL 0.01-0.09 = 704-7) Lab Interpretation Abnormal (test code = 02953-7) [facility]2020-12-12 03:42:00 Test Item Value Reference Range Interpretation Comments POCT GLU (test code = 196 mg/dL 70-110 H Notifi ed Provider [id number]) Lab Interpretation (test Abnormal code = 01983-7) [facility]21-[facility] 02:24:00 Test Item Value Reference Range Interpretation Comments FOLATE SER (test code = 8919939796) 5.8 ng/mL 3.0-20.0 Lab Interpretation (test code = Normal 05623-4) [facility] HospitalVITAMIN B12, [id number] 00:55:00 Test Item Value Reference Range Interpretation Comments VIT B12 (test code = 844 pg/mL 240-930 4899449704) JAMES (test code = JAMES) Biotin has been reported to cause a positive bias, interpret results relative to patient's use of biotin. Lab Interpretation (test Normal code = 43031-8) [facility] GLUCOSE (AUTOMATED)2020-12-12 00:14:00 Test Item Value Reference Range Interpretation Comments POCT GLU (test code = 9733397896) 164 mg/dL 70-110 H Lab Interpretation (test code = Abnormal 09774-9) [facility] HospitalCREATINE [id number] 23:42:00 Test Item Value Reference Range Interpretation Comments CK (test code = 3207675564) <20 33-194 L Lab Interpretation (test code = Abnormal 62065-1) [facility] HospitalTHYROID STIMULATING [id number] 23:17:00 Test Item Value Reference Range Interpretation Comments TSH (test code = See_Comment Biotin has been 1566926836) reported to cau se a negative bias, interpret resul ts relative to johnny bills's use of biotin. [Automated mess age] The system Jimmy Fairly generated this result transmitted ref erence range: 0.45 - 4 .70 mIU/L. The refe rence range was not u sed to interpret this result as normal/abnor mal. Lab Interpretation (test Normal code = 06498-2) [facility] HospitalXR HIPS 3 VW [id number] 21:41:53No appreciable fracture lines. RL: 6200 ICAL [...] erosions.IMPRESSIONNo appreciable fracture lines.RL: 6200 [facility] 20:00:00 Test Item Value Reference Range Interpretation Comments Procalcitonin (test 0.13 ng/mL <0.07 H code = 9358832018) JAMES (test code = JAMES) INTERPRETATION OF [...] lung abscess/empyema. For further information please refer to:[email or web address] Lab Interpretation Abnormal (test code = 02714-9) [facility])2020-12-11 19:07:00 Test Item Value Reference Range Interpretation Comments POCT GLU (test code = 9758212889) 274 mg/dL 70-110 H Lab Interpretation (test code = Abnormal 94275-9) [facility]MAGNESIUM2021-03-01 18:31:00 Test Item Value Reference Range Interpretation Comments MAGNESIUM (test code = 8056869672) 1.9 mg/dL 1.7-2.4 Lab Interpretation (test code = Normal 33983-3) [facility] HospitalFERRITIN [id number] 18:31:00 Test Item Value Reference Range Interpretation Comments FERRITIN (test code = 178.0 ng/mL 18.0-464.0 0356990017) JAMES (test code = JAMES) Biotin has been reported to cause a negative bias, interpret results relative to patient's use of biotin. Lab Interpretation (test Normal code = 35812-2) [facility] HEAD WO [id number] 14:36:47 No acute intracranial abnormality. Dilated ventricles [...] at thevertex. No hydrocephalus, midline shift or pathologicalextra-axial fluidcollection is present. The basal cisterns are unremarkable. There is no acute intracranial hemorrhage or significant mass effect. Anapproximately 2 mm focus of mineralization is noted in the left hemipons,nonspecific (11:17). The barger-white matter differentiation is preserved. Chronicdehiscence of left lamina papyracea noted. The mastoid air cellsand paranasal air sinuses are clear.The calvarium and central skull baseare unremarkable. [facility], [...] can potentially have similar appearance in the appropri ateclinical setting.Preliminary Report Dictated by Resident: Roxane Jiang, Katelyn Martin MD., have reviewed this study and agree with the abovereport.[facility] HospitalURINALYSIS2021-03-01 14:28:00 Test Item Value Reference Range Interpretation Comments APPEARANCE (test code = Clear Clear 8754732702) COLOR (test code = Yellow Yellow 0462507360) PH (test code = 4.8-8.0 5340303866) SP GRAVITY (test code = 1.003-1.030 1023588551) GLU U QUAL (test code = 500 mg/dL Normal A 1958103356) BLOOD (test code = Negative Negative 9139526032) KETONES (test code = 5 mg/dL Negative A 6457934181) PROTEIN (test code = Negative Negative 2887-8) UROBILIN (test code = Normal Normal 9191126254) BILIRUBIN (test code = Negative Negative 7593851893) NITRITE (test code = Negative Negative 5610688041) LEUK RYAN (test code = Negative Negative 3501916551) RBC/HPF (test code = See_Comment [Autom ated message] 4149713619) The system Jimmy Fairly generated this result transmit ronan reference range : 0 - 3 HPF. The refe rence range was not u sed to interpret th is result as normal/abnormal . WBC/HPF (test code = See_Comment [Autom ated message] 9977419438) The system Jimmy Fairly generated this result transmit ronan reference range : 0 - 5 HPF. The refe rence range was not u sed to interpret th is result as normal/abnormal . BACTERIA (test code = Negative Negative 3803451161) MUCOUS (test code = Slight Negative LPF A 2379317102) SQ EPITH (test code = HPF 0516810120) Lab Interpretation (test Abnormal code = 88546-8) [facility] HospitalCOVID-19 (ID NOW RAPID TESTING)2020-12-11 13:10:00 Test Item Value Reference Range Interpretation Comments SARS-CoV-2 Rapid ID NOW Not Detected Not Detected (test code = 59999-7) JAMES (test code = JAMES) ID NOW COVID-19 Assay is an isothermal nucleic acid amplification test intended for the qualitative detection of nucleic acid from SARS-CoV-2 viral RNA in nasopharyngeal (MANAGER EQUIPMENT) specimens. It is used under Emergency Use [...] indicated. Lab Interpretation Normal (test code = 66320-8) [facility]. METABOLIC PANEL (53474)2020-12-11 12:29:00 Test Item Value Reference Range Interpretation Comments NA (test code = 136 mmol/L 135-145 0402299377) K (test code = 3.5 mmol/L 3.5-5.0 4565901289) CL (test code = 95 mmol/L 98-108 L 8773190761) CO2 TOTAL (test code = 35 mmol/L 23-31 H 5560996258) AGAP (test code = 2-16 0959500784) BUN (test code = 9 mg/dL 7-23 0342737967) GLUCOSE (test code = 329 mg/dL 70-110 H 8276570702) CREATININE (test code = 0.72 mg/dL 0.60-1.25 5851183903) TOTAL BILI (test code = 0.6 mg/dL 0.1-1.7 0495693999) CALCIUM (test code = 9.0 mg/dL 8.6-10.6 9210541779) T PROTEIN (test code = 6.8 g/dL 6.3-8.2 6360249363) ALBUMIN (test code = 3.8 g/dL 3.5-5.0 0578990266) ALK PHOS (test code = 288 U/L 34-122 H 7474587236) ALTv (test code = 46 U/L 5-50 1742-6) AST(SGOT) (test code = 38 U/L 13-40 9620113573) eGFR Calculation mL/min/1.73m2 (Non-) (test code = 6297121989) eGFR Calculation mL/min/1.73m2 () (test code = 9346459191) JAMES (test code = JAMES) Association of [...] tests). Lab Interpretation Abnormal (test code = 75043-8) [facility] HospitalLactic Acid Whole Cajwx0872-96-11 12:23:00 Test Item Value Reference Range Interpretation Comments LACTIC ACID (test code = 2.09 mmol/L 0.50-2.20 2041726006) Lab Interpretation (test code = Normal 37919-8) [facility] WITH [id number] 12:17:00 Test Item Value Reference Range Interpretation Comments WBC (test code = See_Comment H [Automated 0990-2) message] The sy stem which generated this result transmitted reference range : 4.20 - 10.70 10*3/?L. The reference range was not used to interpret this result as normal/abnormal . RBC (test code = See_Comment [Automated 089-8) message] The sy stem which generated this [...] RDW-SD (test code = 44.9 fL 38.5-51.6 67254-2) RDW-CV (test code = 15.9 % 12.1-15.4 H 788-0) PLT (test code = See_Comment H [Automated 777-3) message] The sy stem which generated this result transmitted reference range : 150 - 328 10*3/ ?L. The reference r torito was not used to interpret this result as normal/abnormal . MPV (test code = 8.3 fL 9.8-13.0 L 27223-4) NRBC/100 WBC (test See_Comment [Automat ed code = 6870472155) message] The system which generated this result transmitted reference range : 0.0 - 10.0 /100 WBCs. The refer ence range was not u sed to interpret th is result as normal/abnormal . NRBC x10^3 (test code <0.01 See_Comment [Auto mated = 6100380968) message] The s ystem which generated this result transmitted reference range : 10*3/?L. The reference range was not used to interpret this result as normal/abnormal . GRAN MAT (NEUT) % 77.9 % (test code = 770-8) IMM GRAN % (test code 0.50 % = 3682384235) LYMPH % (test code = 12.2 % 736-9) MONO % (test code = 5.2 % 5905-5) EOS % (test code = 3.7 % 713-8) BASO % (test code = 0.5 % 706-2) GRAN MAT x10^3(ANC) 9.57 10*3/uL 1.99-6.95 H (test code = 8190690566) IMM GRAN x10^3 (test 0.06 10*3/uL 0.00-0.06 code = 2089493984) LYMPH x10^3 (test code 1.50 10*3/uL 1.09-3.23 = 731-0) MONO x10^3 (test code 0.64 10*3/uL 0.36-1.02 = 742-7) EOS x10^3 (test code = 0.46 10*3/uL 0.06-0.53 711-2) BASO x10^3 (test code 0.06 10*3/uL 0.01-0.09 = 704-7) Lab Interpretation Abnormal (test code = 15691-0) [facility]LAB ONLY COVID QEVFHOGCTFNWJT1378-35-11 18:43:00COVID DMT InterpretationInterpretation/Recommendations: Molecular NAAT Test Results [...] a nasopharyngeal sample, there is approximately a kuq-ec-gghvk chance that the patient was infected and [...] aggregate data pooled from the [facility] medical recordincluding both current and prior COVID-19 related testing results for the following tests offered atour institution:A. Tests for the Identification of SARS-CoV-2 RNA:SARS-CoV-2 PCR assays including [place] Aptima, [place] Fusion, Barrett RealTime, and [employer] Xpert Xpress. SARS-CoV-2 Rapid ID NOW by the ID NOW assay. ? B. Tests for the Identification of SARS-CoV-2 Antibodies: Chemiluminescent immunoassays including Access SARS-CoV-2 IgM (DXI 600), VITROS Ugqk-GHUT-QhB-2 IgG (Vitros 5600 and Vitros 3600), and Barrett SARS-CoV-2 IgG ([facility] I System). These interpretation comments assume that only the above testing was utilized and that the approved acceptable specimen type(s) were used for a given test. These interpretations are autopopulated into [employer] based on computerized algorithms matching an interpretation [...] pathogen panel may be beneficialin this setting. [facility] LABORATORY SERVICESCOVID PabaitsTWHI-JkW-0 Rapid ID NOW (no units) ? ? Date ? Value ? 08/21/2020 ? Not Detected ? [facility] SERVICESUnSt[facility]2020-08-23 18:25:00 Test Item Value Reference Range Interpretation Comments POCT GLU (test code = 2496222131) 297 mg/dL 70-110 H Lab Interpretation (test code = Abnormal 02522-3) [facility] GLUCOSE (AUTOMATED)2020-08-23 14:25:00 Test Item Value Reference Range Interpretation Comments POCT GLU (test code = 1718056617) 181 mg/dL 70-110 H Lab Interpretation (test code = Abnormal 14550-5) [facility] Metabolic Panel (NA, K, CL, CO2, GLUCOSE, BUN, CREATININE, CA)2020-08-23 11:45:00 Test Item Value Reference Range Interpretation Comments NA (test code = 132 mmol/L 135-145 L 8080266872) K (test code = 4.0 mmol/L 3.5-5 9316156293) CL (test code = 96 mmol/L 98-108 L 0147086415) CO2 TOTAL (test code = 33 mmol/L 23-31 H 4069523206) AGAP (test code = 2-16 1313005725) BUN (test code = 9 mg/dL 7-23 5711681271) GLUCOSE (test code = 176 mg/dL 70-110 H 9637003768) CREATININE (test code = 0.66 mg/dL 0.6-1.25 7571697828) CALCIUM (test code = 8.5 mg/dL 8.6-10.6 L 9841837521) eGFR Calculation mL/min/1.73m2 (Non-) (test code = 5848534370) eGFR Calculation mL/min/1.73m2 () (test code = 0578295626) JAMES (test code = JAMES) Association of [...] tests). Lab Interpretation Abnormal (test code = 70755-3) [facility] HospitalMagnesium Dccbo3753-23-94 11:45:00 Test Item Value Reference Range Interpretation Comments MAGNESIUM (test code = 1399512611) 2.0 mg/dL 1.7-2.4 Lab Interpretation (test code = Normal 85319-1) [facility] with Zehuzaqohzyw3009-34-91 11:38:00 Test Item Value Reference Range Interpretation [...] RDW-SD (test code = 41.8 fL 38.5-51.6 39954-8) RDW-CV (test code = 14.3 % 12.1-15.4 788-0) PLT (test code = See_Comment H [Automated 777-3) message] The sy stem which generated this result transmitted reference range : 150 - 328 10*3/ ?L. The reference r torito was not used to interpret this result as normal/abnormal . MPV (test code = 8.0 fL 9.8-13 L 16257-5) NRBC/100 WBC (test See_Comment [Automat ed code = 9606975810) message] The system which generated this result transmitted reference range : 0.0 - 10.0 /100 WBCs. The refer ence range was not u sed to interpret th is result as normal/abnormal . NRBC x10^3 (test code <0.01 See_Comment [Auto mated = 1183143308) message] The s ystem which generated this result transmitted reference range : 10*3/?L. The reference range was not used to interpret this result as normal/abnormal . GRAN MAT (NEUT) % 61.5 % (test code = 770-8) IMM GRAN % (test code 2.00 % = 4089990946) LYMPH % (test code = 25.5 % 736-9) MONO % (test code = 6.3 % 5905-5) EOS % (test code = 3.7 % 713-8) BASO % (test code = 1.0 % 706-2) GRAN MAT x10^3(ANC) 5.29 10*3/uL 1.99-6.95 (test code = 1159510410) IMM GRAN x10^3 (test 0.17 10*3/uL 0-0.06 H code = 1855333463) LYMPH x10^3 (test code 2.19 10*3/uL 1.09-3.23 = 731-0) MONO x10^3 (test code 0.54 10*3/uL 0.36-1.02 = 742-7) EOS x10^3 (test code = 0.32 10*3/uL 0.06-0.53 711-2) BASO x10^3 (test code 0.09 10*3/uL 0.01-0.09 = 704-7) Lab Interpretation Abnormal (test code = 81033-3) [facility] GLUCOSE (AUTOMATED)2020-08-23 10:22:00 Test Item Value Reference Range Interpretation Comments POCT GLU (test code = 3017413074) 164 mg/dL 70-110 H Lab Interpretation (test code = Abnormal 31795-3) [facility] GLUCOSE (AUTOMATED)2020-08-23 05:56:00 Test Item Value Reference Range Interpretation Comments POCT GLU (test code = 3468479903) 242 mg/dL 70-110 H Lab Interpretation (test code = Abnormal 41971-4) [facility] GLUCOSE (AUTOMATED)2020-08-23 03:02:00 Test Item Value Reference Range Interpretation Comments POCT GLU (test code = 4553326014) 210 mg/dL 70-110 H Lab Interpretation (test code = Abnormal 80274-1) [facility] GLUCOSE (AUTOMATED)2020-08-22 23:40:00 Test Item Value Reference Range Interpretation Comments POCT GLU (test code = 1511617615) 267 mg/dL 70-110 H Lab Interpretation (test code = Abnormal 08177-9) [facility] GLUCOSE (AUTOMATED)2020-08-22 19:08:00 Test Item Value Reference Range Interpretation Comments POCT GLU (test code = 4157200866) 191 mg/dL 70-110 H Lab Interpretation (test code = Abnormal 23588-8) [facility] GLUCOSE (AUTOMATED)2020-08-22 13:50:00 Test Item Value Reference Range Interpretation Comments POCT GLU (test code = 9646068558) 174 mg/dL 70-110 H Lab Interpretation (test code = Abnormal 12004-7) [facility]URINE SVNGKCK3548-74-70 12:59:00 Test Item Value Reference Range Interpretation Comments URINE CULTURE (test No aerobic growth (< code = 630-4) 1000 CFU/mL) [facility] HospitalCBC with Jhtvrelbsnau3963-31-29 11:28:00 Test Item Value Reference Range Interpretation Comments WBC (test code = See_Comment [Automated 6690-2) message] The sy stem which generated this result transmitted reference range : 4.20 - 10.70 10*3/?L. The reference range was not used to interpret this result as normal/abnormal . RBC (test code = See_Comment L [Automated 339-8) message] The sy stem which generated this [...] RDW-SD (test code = 42.5 fL 38.5-51.6 12408-9) RDW-CV (test code = 14.5 % 12.1-15.4 788-0) PLT (test code = See_Comment H [Automated 777-3) message] The sy stem which generated this result transmitted reference range : 150 - 328 10*3/ ?L. The reference r torito was not used to interpret this result as normal/abnormal . MPV (test code = 8.0 fL 9.8-13 L 03855-4) NRBC/100 WBC (test See_Comment [Automat ed code = 4196656915) message] The system which generated this result transmitted reference range : 0.0 - 10.0 /100 WBCs. The refer ence range was not u sed to interpret th is result as normal/abnormal . NRBC x10^3 (test code <0.01 See_Comment [Auto mated = 7006493817) message] The s ystem which generated this result transmitted reference range : 10*3/?L. The reference range was not used to interpret this result as normal/abnormal . GRAN MAT (NEUT) % 69.1 % (test code = 770-8) IMM GRAN % (test code 2.20 % = 0772679245) LYMPH % (test code = 20.9 % 736-9) MONO % (test code = 5.8 % 5905-5) EOS % (test code = 1.0 % 713-8) BASO % (test code = 1.0 % 706-2) GRAN MAT x10^3(ANC) 6.51 10*3/uL 1.99-6.95 (test code = 8171704664) IMM GRAN x10^3 (test 0.21 10*3/uL 0-0.06 H code = 9237348497) LYMPH x10^3 (test code 1.97 10*3/uL 1.09-3.23 = 731-0) MONO x10^3 (test code 0.55 10*3/uL 0.36-1.02 = 742-7) EOS x10^3 (test code = 0.09 10*3/uL 0.06-0.53 711-2) BASO x10^3 (test code 0.09 10*3/uL 0.01-0.09 = 704-7) BASO STIPPLING (test Present A code = 703-9) BANDS (test code = Increased A 2877888318) TOXIC CHANGES (test Present A code = 803-7) Lab Interpretation Abnormal (test code = 29783-2) [facility] Metabolic Panel (NA, K, CL, CO2, GLUCOSE, BUN, CREATININE, CA)2020-08-22 11:12:00 Test Item Value Reference Range Interpretation Comments NA (test code = 135 mmol/L 135-145 8821277792) K (test code = 3.6 mmol/L 3.5-5 2360946095) CL (test code = 99 mmol/L 98-108 9115032552) CO2 TOTAL (test code = 31 mmol/L 23-31 9649642729) AGAP (test code = 2-16 7218438400) BUN (test code = 9 mg/dL 7-23 1116008172) GLUCOSE (test code = 198 mg/dL 70-110 H 6911349629) CREATININE (test code = 0.72 mg/dL 0.6-1.25 2995582673) CALCIUM (test code = 8.3 mg/dL 8.6-10.6 L 6345321066) eGFR Calculation mL/min/1.73m2 (Non-) (test code = 4389562270) eGFR Calculation mL/min/1.73m2 () (test code = 2400504489) JAMES (test code = JAMES) Association of [...] tests). Lab Interpretation Abnormal (test code = 96401-7) [facility] HospitalMagnesium Zhrpm4249-55-52 11:12:00 Test Item Value Reference Range Interpretation Comments MAGNESIUM (test code = 9514879372) 2.0 mg/dL 1.7-2.4 Lab Interpretation (test code = Normal 30192-2) [facility] HospitalLipid Panel (Total Cholesterol, Triglycerides, HDL) - Frsbafo8180-16-48 11:12:00 Test Item Value Reference Range Interpretation Comments CHOL (test code = 155 mg/dL 120-200 8831027701) HDL (test code = 42 mg/dL >40 1850531288) HDLC RATIO (test code = See_Comment [Au tomated message] 4221692142) The system Jimmy Fairly generated this result transmit ronan reference range : <=5.0. The refe rence range was not u sed to interpret th is result as normal/abnormal . TRIG (test code = 186 mg/dL 30-170 H 4694007675) LDL CHOL (test code = 76 mg/dL See_Comment [Auto mated message] 18836-5) The system Jimmy Fairly generated this result transmit ronan reference range : <=160. The refe rence range was not u sed to interpret th is result as normal/abnormal . VLDL (test code = 37 mg/dL 5-60 3880379042) Lab Interpretation (test Abnormal code = 24363-0) [facility] HospitalHEPATIC FUNCTION PANEL (80926) (ALB,T.PRO,BILI T,BU/BC,ALT,AST,ALK PHOS)2020-08-22 11:12:00 Test Item Value Reference Range Interpretation Comments TOTAL BILI (test code = 6224798854) 0.6 mg/dL 0.1-1.1 BILI UNCON (test code = 6954349558) 0.2 mg/dL 0.1-1.1 BILI CONJ (test code = 3224644486) 0.0 mg/dL 0-0.3 T PROTEIN (test code = 4346230424) 6.0 g/dL 6.3-8.2 L ALBUMIN (test code = 8030984843) 2.8 g/dL 3.5-5 L ALK PHOS (test code = 9351657394) 222 U/L 34-122 H ALTv (test code = 1742-6) 27 U/L 5-50 AST(SGOT) (test code = 7443970337) 30 U/L 13-40 Lab Interpretation (test code = Abnormal 34503-9) [facility] GLUCOSE (AUTOMATED)2020-08-22 10:11:00 Test Item Value Reference Range Interpretation Comments POCT GLU (test code = 4369714647) 196 mg/dL 70-110 H Lab Interpretation (test code = Abnormal 79140-1) [facility] GLUCOSE (AUTOMATED)2020-08-22 07:15:00 Test Item Value Reference Range Interpretation Comments POCT GLU (test code = 9345511234) 183 mg/dL 70-110 H Lab Interpretation (test code = Abnormal 64579-1) [facility] GLUCOSE (AUTOMATED)2020-08-22 02:30:00 Test Item Value Reference Range Interpretation Comments POCT GLU (test code = 2762493071) 295 mg/dL 70-110 H Lab Interpretation (test code = Abnormal 19776-1) [facility] GLUCOSE (AUTOMATED)2020-08-21 23:46:00 Test Item Value Reference Range Interpretation Comments POCT GLU (test code = 8296506509) 258 mg/dL 70-110 H Lab Interpretation (test code = Abnormal 02444-0) [facility] HospitalC-REACTIVE VPMJOFL3051-02-02 18:50:00 Test Item Value Reference Range Interpretation Comments CRP (test code = 1438897618) 15.5 mg/dL <0.8 H Lab Interpretation (test code = Abnormal 51370-8) [facility])2020-08-21 18:21:00 Test Item Value Reference Range Interpretation Comments POCT GLU (test code = 9792058397) 297 mg/dL 70-110 H Lab Interpretation (test code = Abnormal 92130-1) [facility] HospitalETHANOL2020-11-09 16:24:00 Test Item Value Reference Range Interpretation Comments ALCOHOL (test code = <10 mg/dL 6486166140) JAMES (test code = Toxic Greater than or JAMES) equal to 80 mg/dL. NOTE: Whole blood values are approximately 10% to 15% lower than serum and plasma. [facility] - URINE DRUG (IMMUNOASSAY) - 4 ER [id number] 15:36:00 Test Item Value Reference Range Interpretation Comments AMPHET (test code = Negative Negative 4499878172) Cocaine Metabolite (test Negative Negative code = 1531201175) OPIATES (test code = Presumptive Positive Negative A 5196221176) THC (test code = Negative Negative 3599662773) JAMES (test code = JAMES) Urine Drug Cutoff Ranges Amphetamine: ? 1,000 ng/mLCocaine: ? 150 ng/mLOpiates: ? 300 ng/mLCannabinoids: ?50 ng/mL The results are to be used only for medical (i.e., treatment) purposes. Unconfirmed screening results must not be used for non-medical purposes (e.g., employment testing, legal testing). Lab Interpretation (test Abnormal code = 70959-0) [facility] ONLY - SYPHILIS [id number] 15:04:00 Test Item Value Reference Range Interpretation Comments Syphilis IgG/IgM (test Non-reactive Non-reactive code = 84020-5) JAMES (test code = JAMES) Non-reactive - No serologic evidence of T. pallidum infection. Cannot exclude incubating or early syphilis. Submit a second specimen in 2-4 weeks if syphilis is clinically suspected. Equivocal - Further testing to follow. Reactive - Further testing to follow. Lab Interpretation (test Normal code = 62392-1) [facility]inalysis[facility] 14:52:00 Test Item Value Reference Range Interpretation Comments APPEARANCE (test code = Clear Clear 1882725642) COLOR (test code = Yellow Yellow 9819421872) PH (test code = 4.8-8.0 7964932042) SP GRAVITY (test code = 1.003-1.030 4048223406) GLU U QUAL (test code = 500 mg/dL Normal A 2010945545) BLOOD (test code = Negative Negative 3961065992) KETONES (test code = 20 mg/dL Negative A 1656579855) PROTEIN (test code = Negative Negative 2887-8) UROBILIN (test code = Normal Normal 0356898292) BILIRUBIN (test code = Negative Negative 3462457318) NITRITE (test code = Negative Negative 7948802286) LEUK RYAN (test code = Negative Negative 7107367326) RBC/HPF (test code = <1 See_Comment [Autom ated message] 9515683911) The system Jimmy Fairly generated this result transmit ronan reference range : 0 - 3 HPF. The refe rence range was not u sed to interpret th is result as normal/abnormal . WBC/HPF (test code = See_Comment [Autom ated message] 6553717395) The system Jimmy Fairly generated this result transmit ronan reference range : 0 - 5 HPF. The refe rence range was not u sed to interpret th is result as normal/abnormal . BACTERIA (test code = Negative Negative 4246293284) MUCOUS (test code = Slight Negative LPF A 9956072794) Lab Interpretation (test Abnormal code = 99749-2) [facility]ACT[facility] THRMPLAS [id number] 13:45:00 Test Item Value Reference Range Interpretation Comments APTT Patient (test code = See_Comment [ Automated message] 3173-2) The system Jimmy Fairly generated this result transmitted ref erence range: 26 - 36 Seconds. The re ference range was not u sed to interpret this result as normal/abnor mal. Lab Interpretation (test Normal code = 69808-8) [facility]PO[facility] (AUT[facility]ATED)2020-08-21 13:45:00 Test Item Value Reference Range Interpretation Comments POCT GLU (test code = 7720933880) 246 mg/dL 70-110 H Lab Interpretation (test code = Abnormal 05645-7) [facility]HIV [facility]/2 AG-AB WITH [id number] 12:32:00 Test Item Value Reference Range Interpretation Comments HIV Negative Negative Semi-quantitative (test code = 62393-1) JAMES (test code = Non-reactive for HIV-1 JAMES) antigen and HIV-1/HIV-2 antibodies. ?No laboratory evidence of HIV infection. ?Repeat in 2-4 weeks if acute HIV infection is suspected. [facility] HospitalCBC WITH [id number] 12:18:00 Test Item Value Reference Range Interpretation [...] RDW-SD (test code = 44.4 fL 38.5-51.6 40887-2) RDW-CV (test code = 14.5 % 12.1-15.4 788-0) PLT (test code = See_Comment H [Automated 777-3) message] The sy stem which generated this result transmitted reference range : 150 - 328 10*3/ ?L. The reference r torito was not used to interpret this result as normal/abnormal . MPV (test code = 8.5 fL 9.8-13 L 63339-5) NRBC/100 WBC (test See_Comment [Automat ed code = 4674362771) message] The system which generated this result transmitted reference range : 0.0 - 10.0 /100 WBCs. The refer ence range was not u sed to interpret th is result as normal/abnormal . NRBC x10^3 (test code <0.01 See_Comment [Auto mated = 4883060985) message] The s ystem which generated this result transmitted reference range : 10*3/?L. The reference range was not used to interpret this result as normal/abnormal . GRAN MAT (NEUT) % 90.4 % (test code = 770-8) IMM GRAN % (test code 1.30 % = 4655256625) LYMPH % (test code = 7.1 % 736-9) MONO % (test code = 0.5 % 5905-5) EOS % (test code = 0.1 % 713-8) BASO % (test code = 0.6 % 706-2) GRAN MAT x10^3(ANC) 7.74 10*3/uL 1.99-6.95 H (test code = 4203291990) IMM GRAN x10^3 (test 0.11 10*3/uL 0-0.06 H code = 0982811660) LYMPH x10^3 (test code 0.61 10*3/uL 1.09-3.23 L = 731-0) MONO x10^3 (test code 0.04 10*3/uL 0.36-1.02 L = 742-7) EOS x10^3 (test code = <0.03 0.06-0.53 L 711-2) BASO x10^3 (test code 0.05 10*3/uL 0.01-0.09 = 704-7) POLYCHROMASIA (test 2+ See_Comment [Automa ronan code = 26898-6) message] The system which generated this result transmitted reference range : 2+. The referen ce range was not u sed to interpret th is result as normal/abnormal . BANDS (test code = Increased A 5038170815) Lab Interpretation Abnormal (test code = 64908-2) [facility] HospitalPROCALCITONIN2020-11-09 11:48:00 Test Item Value Reference Range Interpretation Comments Procalcitonin (test 0.36 ng/mL <0.07 H code = 9906965562) JAMES (test code = JAMES) INTERPRETATION OF [...] lung abscess/empyema. For further information please refer to:[email or web address] Lab Interpretation Abnormal (test code = 18065-4) [facility] HospitalLAVTATE [id number] 10:53:00 Test Item Value Reference Range Interpretation Comments LDH (test code = 5442047517) 351 U/L 300-600 Lab Interpretation (test code = Normal 53643-1) [facility] HospitalSEDIMENTATION [id number] 10:07:00 Test Item Value Reference Range Interpretation Comments ESR (test code = See_Comment H [Automated message] 5455465202) The system Jimmy Fairly generated this result transmitted ref erence range: 0 - 10 m m/HR. The reference r torito was not used to interpret this result as normal/abnor mal. Lab Interpretation (test Abnormal code = 61823-7) [facility]PO[facility])2020-08-21 09:45:00 Test Item Value Reference Range Interpretation Comments POCT GLU (test code = 7302667436) 287 mg/dL 70-110 H Lab Interpretation (test code = Abnormal 11514-8) [facility] HospitalGlycosylated Hemoglobin (A1C)2020-08-21 09:29:00 Test Item Value Reference Range Interpretation Comments HGB A1C (test code = 4548-4) 9.8 % 4-6 H Lab Interpretation (test code = Abnormal 58327-2) [facility] HospitalCOVID-19 (ID NOW RAPID TESTING)2020-08-21 09:13:00 Test Item Value Reference Range Interpretation Comments SARS-CoV-2 Rapid ID NOW Not Detected Not Detected (test code = 79138-0) JAMES (test code = JAMES) ID NOW COVID-19 Assay is an isothermal nucleic acid amplification test intended for the qualitative detection of nucleic acid from SARS-CoV-2 viral RNA in nasopharyngeal (MANAGER E[employer]IPMENT) specimens. It is used under Emergency Use [...] indicated. Lab Interpretation Normal (test code = 99591-7) [facility] HospitalProthrombin Time / [id number] 08:59:00 Test Item Value Reference Range Interpretation Comments PROTIME PATIENT (test See_Comment H [Auto mated message] code = 5964-2) The system [employer] generated this result transmitted ref erence range: 10.1 - 1 2.6 Seconds. The reference range was not used to int erpret this result as normal/abnormal . INR (test code = 6301-6) Nor mal INR <1.1; Warfarin Therap eutic range 2.0 to 3. 0 or 2.5 to 3.5, dep ending upon the indica tions. Lab Interpretation (test Abnormal code = 98330-4) [facility] HospitalaPTT2020-11-09 08:59:00 Test Item Value Reference Range Interpretation Comments APTT Patient (test code = See_Comment [ Automated message] 3173-2) The system Jimmy Fairly generated this result transmitted ref erence range: 26 - 36 Seconds. The re ference range was not u sed to interpret this result as normal/abnor mal. Lab Interpretation (test Normal code = 20548-7) [facility] HospitalBASI METABOLIC PANEL (NA, K, CL, CO2, GLUCOSE, BUN, CREATININE, CA)2020-08-21 08:52:00 Test Item Value Reference Range Interpretation Comments NA (test code = 136 mmol/L 135-145 8168307841) K (test code = 4.3 mmol/L 3.5-5 8815539749) CL (test code = 104 mmol/L 98-108 1312446512) CO2 TOTAL (test code = 24 mmol/L 23-31 2496351539) AGAP (test code = 2-16 4425979778) BUN (test code = 8 mg/dL 7-23 4758611751) GLUCOSE (test code = 308 mg/dL 70-110 H 2336595343) CREATININE (test code = 0.72 mg/dL 0.6-1.25 3895164430) CALCIUM (test code = 7.8 mg/dL 8.6-10.6 L 0887006646) eGFR Calculation mL/min/1.73m2 (Non-) (test code = 3036239606) eGFR Calculation mL/min/1.73m2 () (test code = 2439603592) JAMES (test code = JAMES) Association of [...] tests). Lab Interpretation Abnormal (test code = 60770-9) [facility] HospitalHEPATIC FUNCTION PANEL (02995) (ALB,T.PRO,BILI T,BU/BC,ALT,AST,ALK PHOS)2020-08-21 08:52:00 Test Item Value Reference Range Interpretation Comments TOTAL BILI (test code = 1421238530) 0.8 mg/dL 0.1-1.1 BILI UNCON (test code = 5212123472) 0.3 mg/dL 0.1-1.1 BILI CONJ (test code = 9384541067) 0.0 mg/dL 0-0.3 T PROTEIN (test code = 9692756972) 5.7 g/dL 6.3-8.2 L ALBUMIN (test code = 1618157591) 2.7 g/dL 3.5-5 L ALK PHOS (test code = 7446509915) 245 U/L 34-122 H ALTv (test code = 1742-6) 37 U/L 5-50 AST(SGOT) (test code = 2332123480) 43 U/L 13-40 H Lab Interpretation (test code = Abnormal 03185-6) [facility]
--- NOTE | 2022-08-01 21:45 | ER ---
Nurse's Notes [facility] Name: Kiel Ngo Age: 71 yrs Sex: Male : 1950 Arrival Date: 08/01/2022 Time: 21:31 Bed 1 Private MD: Diagnosis: Chronic leg pain Presentation: 08/01 21:40 Chief complaint: EMS states: they were toned out for report of pt with chronic leg pain bb pt seen by Dr Quintanilla on EMS stretcher and discharged home. Coronavirus screen: At this time, the client does not indicate any symptoms associated with coronavirus-19. Ebola Screen: No symptoms or risks identified at this time. Initial Sepsis Screen: Does the patient meet any 2 criteria? No. Patient's initial sepsis screen is negative. Does the patient have a suspected source of infection? No. Patient's initial sepsis screen is negative. Risk Assessment: Do you want to hurt yourself or someone else? Patient reports no desire to harm self or others. Onset of symptoms was August 01, 2022. 21:40 Method Of Arrival: EMS: [facility] bb 21:40 Acuity: JOZEF 5 bb Triage Assessment: 21:42 General: Appears in no apparent distress. obese, Behavior is calm, cooperative. Pain: bb Complains of pain in right leg and left leg. Neuro: Level of Consciousness is awake, alert, obeys commands, Oriented to person, place, time, situation. Cardiovascular: Capillary refill < 3 seconds Patient's skin is warm and dry. Respiratory: Respiratory effort is even, unlabored. Musculoskeletal:. Musculoskeletal: Reports pain in right leg and left leg. Historical: - Allergies: 21:42 Demerol; bb 21:42 metformin; bb 21:42 Morphine; bb - Immunization history:: unknown. - Social history:: Smoking status: unknown. Vital Signs: 21:40 BP 128 / 83; Pulse 111; Resp 12 S; Pulse Ox 97% on R/A; bb ED Course: :31 Patient arrived in ED. ds4 21:31 Carie Quintanilla MD is Attending Physician. sd2 21:42 Triage completed. bb 21:42 Arm band placed on pt discharged by Dr Quintanilla and transported home by EMS. bb Administered Medications: No medications were administered Outcome: 21:36 Discharge ordered by . sd2 21:44 Patient left the ED. bb Signatures: Elvia Lugo RN RN Dayday [place] ds4 Carie Quintanilla MD MD sd2
[2022-08-01 21:52] VITALS: BP 128/83; O2SAT 97
== END 2022-08-01 21:44 | disposition home or self-care (01) ==
LOC: ER 21:27
DX: G89.29 Other chronic pain (principal); Z88.5 Allergy status to narcotic agent; Z88.8 Allergy status to other drugs, medicaments and biological substances
CPT/HCPCS: 99282

== ENCOUNTER 2022-08-04 06:36 | Emergency (ER) | payer OTHER ==
--- OUTSIDE RECORDS SUMMARY | 2022-08-04 06:49 | XMS REPORT | Continuity of Care Document ---
:1950 Author Organization [facility] t Address [address] [place] [address] Care Team Providers Name Role Phone CALVIN [...] PACO LACEY Attending Clinician Unavailable Doctor Unassigned, [place] Attending Clinician Unavailable Wilder VILLAREAL, Angi K.HWong Attending Clinician Jl Mccabe MD Attending Clinician Kelly Washington MD Attending Clinician [phone] Mukul Gallardo MD Attending Clinician MUKUL GALLARDO Admitting Clinician Unavailable Harrison MD, Premal G Admitting Clinician KRUPA VIKA G Admitting Clinician Unavailable Nicci VILLAREAL, Mukul Anand Admitting Clinician Payers Payer Name Policy Type Policy Number Effective Date Expiration Date Tony doe MEDICARE PART A [id number] 2007 \\T\\ B 00:00:00 [employer] INDEMNITY [id number] 2016 00:00:00 MEDICARE PART A [id number] 2014 \\T\\ B - MEDICARE 00:00:00 INDEMNITY/TRADITIO [id number] NAL CHOICE - [employer] 00:00:00 Problems Condition [...] ents Source Name Type Date Date Clinician [place] [facility] Active Rash 2019- Univers ty to [...] Quantity Comments Source Exposure to Not sure [place] of SARS-CoV-2 [place] [facility] (event) Branch History of Chews Tobacco University of tobacco use [place] [facility] History SDOH 2020-11-17 2020-11-17 5 University o f Financial 00:00:00 00:00:00 [place] [facility] History SDRI Food 2020-11-17 2020-11-17 1 Univers ity of Worry 00:00:00 00:00:00 [place] [facility] History SDOH Food 2020-11-17 2020-11-17 1 Univers ity of Scarcity 00:00:00 00:00:00 [place] [facility] History SDOH 2020-11-17 2020-11-17 1 University o f Transport Med 00:00:00 00:00:00 [place] Medic al Branch History SDOH 2020-11-17 2020-11-17 1 University o f Transport Non-Med 00:00:00 00:00:00 [facility] edical Branch Education 2020-11-16 2020-11-16 21 [place] of 00:00:00 00:00:00 [facility] Alcohol intake 2020-11-16 2020-11-16 Ex-drinker [facility] 00:00:00 00:00:00 (finding) [facility] [...] x 20 Branch years, quit 2004 History [facility] 2020-08-21 2020-08-21 99 University o f Alcohol Frequency 00:00:00 00:00:00 [place] [facility] edical [facility] History [facility] 2020-08-21 2020-08-21 99 [place] o f Alcohol Std 00:00:00 00:00:00 [place] [facility] Drinks Branch History [facility] 2020-08-21 2020-08-21 99 [place] o f Alcohol Binge 00:00:00 00:00:00 [facility] al [place] Sex Assigned At [birth year] Universit y [...] 0845, Until Discontinu ed, Routine amLODIPine Yes [id number] 10mg Take 1 Univers 10 mg 3-07 tablet by ity of tablet 00:00: mouth [place] 00 daily. Medical Branch clotrimazol Yes [id number] Apply to Univers e 1 % 3-07 face/ears, ity of topical 00:00: armpits, [place] cream 00 pannus and Medical back/any Branch other rash twice a day fluocinonid 0 Yes [id number] Apply to Univers e 0.05 % 3-07 scalp ity of solution 00:00: twice a [place] 00 day Medical Branch triamcinolo Yes [id number] Apply to Univers ne 3-07 back, ity of acetonide 00:00: armpits [place] 0.1 % cream 00 and other Med ical affected Branch areas twice daily, please mix with clotrimazo le hydrOXYzine Yes [id number] 10mg Take 1 Univers 10 mg 3-07 tablet by ity of tablet 00:00: mouth 2 00 (two) Medical times Branch daily. amLODIPine Yes [id number] 10mg Take 1 Univers 10 mg 3-07 tablet by ity of tablet 00:00: mouth [place] 00 daily. Medical Branch clotrimazol Yes [id number] Apply to Univers e 1 % 3-07 face/ears, ity of topical 00:00: armpits, [place] cream 00 pannus and Medical back/any Branch other rash twice a day fluocinonid Yes [id number] Apply to Univers e 0.05 % 3-07 scalp ity of solution 00:00: twice a day Medical Branch triamcinolo Yes [id number] Apply to Univers ne 3-07 back, ity of acetonide 00:00: armpits [place] 0.1 % cream 00 and other Med ical affected Branch areas twice daily, please mix with clotrimazo le hydrOXYzine Yes [id number] 10mg Take 1 Univers 10 mg 3-07 tablet by ity of tablet 00:00: mouth 2 [place] 00 (two) Medical times Branch daily. amLODIPine Yes [id number] 10mg Take 1 Univers 10 mg 3-07 tablet by ity of tablet 00:00: mouth [place] 00 daily. Medical Branch clotrimazol 0 Yes [id number] Apply to Univers e 1 % 3-07 face/ears, ity of topical 00:00: armpits, [place] cream 00 pannus and Medical back/any Branch other rash twice a day fluocinonid 2020-0 Yes [id number] Apply to Univers e 0.05 % 3-07 scalp ity of solution 00:00: twice a day Medical Branch triamcinolo 2020-0 Yes [id number] Apply to Univers ne 3-07 back, ity of acetonide 00:00: armpits [place] 0.1 % cream 00 and other Med ical affected Branch areas twice daily, please mix with clotrimazo le hydrOXYzine Yes [id number] 10mg Take 1 Univers 10 mg 3-07 tablet by ity of tablet 00:00: mouth 2 [place] (two) Medical times Branch daily. amLODIPine Yes [id number] 10mg Take 1 Univers 10 mg 3-07 tablet by ity of tablet 00:00: mouth [place] 00 daily. Medical Branch clotrimazol Yes [id number] Apply to Univers e 1 % 3-07 face/ears, ity of topical 00:00: armpits, [place] cream 00 pannus and Medical back/any Branch other rash twice a day fluocinonid Yes [id number] Apply to Univers e 0.05 % 3-07 scalp ity of solution 00:00: twice a day Medical Branch triamcinolo 0 Yes [id number] Apply to Univers ne 3-07 back, ity of acetonide 00:00: armpits [place] 0.1 % cream 00 and other Med ical affected Branch areas twice daily, please mix with clotrimazo le hydrOXYzine Yes [id number] 10mg Take 1 Univers 10 mg 3- tablet by ity of tablet 00:00: mouth 2 (two) Medical times Branch daily. cephALEXin 2020-2020- No [id number] 500mg Take 1 Univers 500 mg -04 14- capsule by ity of capsule 00:00: 05:59 mouth [place] 00 :00 every 6 Medical (six) Branch hours for 3 days. cephALEXin 2020-0 2020- No [id number] 500mg Take 1 Univers 500 mg 3-04 14- capsule by ity of capsule 00:00: 05:59 mouth [place] 00 :00 every 6 Medical (six) Branch hours for 3 days. hydrOXYzine 2020-2020- No [id number] 10mg Take 1 Univers 10 mg 3- 03-07 tablet by ity of tablet 00:00: 00:00 mouth 2 [place] 00 :00 (two) Medical times [place] daily. morpHINE Yes 4mg 4 mg, Slow Uni vers injection 4 -06 IV Push, ity of mg 22:40: Q6HPRN, [place] 02 Starting Medical 12/16/20 [place] at 1640, Until Discontinu ed, Routine, Pain [...] 00 :00 dose, Sat Medical 12/16/20 at [place] 0515, Routine lactated 2020- No 1000mL at 125 Univ ers ringers IV 12-16 03-06 mL/hr, ity of infusion 01:00: 00:16 1,000 mL, [place] 1,000 mL 00 :00 IV Medical Infusion, [place] ONCE, 1 dose, 12/15/20 at 1900, Routine iohexol 2020- No 100mL 100 mL, Unive rs (OMNIPAQUE 12-15-05 Intravenou it y of 350 22:24: 22:24 s, ONCE, 1 [place] BULK-100 00 :00 dose, Fri Medica l mL) 12/15/20 at [place] injection 1645, 100 mL Routine cephALEXin 2020- [...] NaCl 0.9% 2020- No 500mL at 999 [facility] ers (NS) bolus 12-15-05 mL/hr, 500 it y of infusion 16:00: 15:26 mL, IV [place] 500 mL 00 :00 Piggyback, Medical ONCE, 1 Branch dose, Fri12/15/20 at 1000, STAT HYDROmorpho Yes 4mg 4 mg, [facility] ne 05 Oral, BID, ity of (DILAUDID) 15:30: First dose [place] tablet 4 mg 00 (after Medica l last Branch modificati on) on Fri12/15/20 at 0930, Until Discontinu ed, Routine amLODIPine 2020- No [id number] 10mg Take 1 Univers 10 mg 12-1507 tablet by ity of tablet 00:00: 00:00 mouth [place] 00 :00 daily. Medical Branch HYDROmorpho 2020- No 1mg 1 mg, [facility] ers ne 12-14 03-05 Oral, ity of (DILAUDID) 17:35: 15:18 Q6HPRN, [place] tablet 1 mg 30 :06 Starting Medi [facility] 12/14/20 Branch at 1135, Until Fri12/15/20 at 0918, Routine, Pain (scale 7-10) hydrOXYzine Yes 10mg 10 mg, [facility] ers (ATARAX) 304 Oral, BID, ity o f tablet 10 17:30: First dose [place] mg 00 on [facility] 12/14/20 at Branch 1130, Until Discontinu ed, Routine lisinopriL 0 Yes 5mg 5 mg, Univer s (PRINIVIL,Z -04 Oral, ity of ESTRIL) 17:30: DAILY, [place] tablet 5 mg 00 First dose Me dical on [facility] Branch 12/14/20 at 1130, Until Discontinu ed, Routine triamcinolo 2020- No [id number] Apply to Univers ne 12-14 back, ity of acetonide 00:00: 00:00 armpits [place] 0.1 % cream 00 :00 and other Med ical affected Branch areas twice daily, please mix with clotrimazo le clotrimazol 2020- No [id number] Apply to Univers e 1 % 12-14 face/ears, ity of topical 00:00: 00:00 armpits, [place] cream 00 :00 pannus and Medical back/any Branch other rash twice a day fluocinonid 2020- No [id number] Apply to Univers e 0.05 % 12-14 scalp ity of solution 00:00: 00:00 twice a [place] 00 :00 day Medical Branch hydrOXYzine 2020- No [id number] 10mg Take 1 Univers 10 mg 12-14 [...] 1 [place] mg 00 :00 dose, [facility] 12/12/20 at Branch 2145, Routine insulin Yes 15U 15 Units, [facility] rs glargine 12-12 Subcutaneo ity o f (LANTUS 15:00: us, DAILY, [place] U-100) 00 First dose Medical injection on [facility] 15 Units 12/12/20 at 0900, Until Discontinu ed hydrOXYzine 2020- No 10mg 10 mg, Uni vers (ATARAX) 12-12 03-02 Oral, ity of tablet 10 08:15: 07:33 ONCE, 1 [place] mg 00 :00 dose, [facility] 12/12/20 at Branch 0215, Routine mirtazapine Yes 7.5mg 7.5 mg, Un toi (REMERON) 3-02 Oral, QHS, ity of tablet 7.5 03:00: First dose [place] mg 00 on [facility] 12/11/20 at Branch 2100, Until Discontinu [...] 00 Fri12/11/20 Me dical cream at 1315, [place] Until Discontinu ed, Routine hydrocortis 0 Yes [...] ity of 1,000 mg in 19:00: 17:35 [place], [place] NaCl 0.9% 00 :26 Q8H ABX, [...] ed, Routine insulin Yes 5U 5 Units, [facility] lispro 12-11 Subcutaneo ity of (human) 18:00: us, TID [place] (HumaLOG 00 MEALS, Medical U-100) First dose Branch injection 5 on Mon Units 12/11/20 at 1200, Until Discontinu ed Polyethylen Yes 17g 17 g, [facility] rs e Glycol 12-11 Oral, ity of 3350 17:47: [id number], [place] (MIRALAX) 05 Starting Medica l powder [...] 0630, STAT piperacilli No 3.375g 3.375 g, [facility] n-tazobacta 12-11 IV ity of m (ZOSYN) 12:00: 17:48 [place], [place] injection 00 :24 Q6H, First Medi jose c 3.375 g dose on Branch Fri12/11/20 at 0600, Until Discontinu ed, KAHLIL
Re ason for Anti-Infec tive: Empiric Therapy for Suspected Infection< br>Empiric Therapy Site: Skin / Soft tissue
Duration of therapy: 72 hours sennosides- Yes [id number] 1{tbl} Take 1 [facility] docusate 2-09 tablet by ity of sodium 00:00: mouth 2 [place] 8.6-50 mg 00 (two) Medical per tablet times Branch daily. hydrocortis Yes [id number] Apply to [facility] one 2.5 % 11-21 affected ity of cream 00:00: area(s) 2 [place] 00 (two) Medical times Branch daily. blood sugar Yes [id number] Use to [facility] diagnostic 2 check ity of (FREESTYLE 00:00: blood [place] LITE 00 glucose Medical STRIPS) 4-5 times Branch strip daily. Polyethylen Yes [id number] 17g Take 1 Univers e Glycol 2-09 Packet by ity of 3350 17 00:00: mouth [place] gram powder 00 every 24 Medi jose c (twenty-fo Branch ur) hours as needed for Constipati on. sennosides- Yes [id number] 1{tbl} Take 1 Univers docusate 2-09 tablet by ity of sodium 00:00: mouth 2 [place] 8.6-50 mg 00 (two) Medical per tablet times Branch daily. hydrocortis Yes [id number] Apply to Univers one 2.5 % 2-09 affected ity of cream 00:00: area(s) 2 [place] 00 (two) Medical times Branch daily. blood sugar Yes [id number] Use to Univers diagnostic 11-21 check ity of (FREESTYLE 00:00: blood [place] LITE 00 glucose Medical STRIPS) 4-5 times Branch strip daily. Polyethylen Yes [id number] 17g Take 1 Univers e Glycol 2-09 Packet by ity of 3350 17 00:00: mouth [place] gram powder 00 every 24 Medi jose c (twenty-fo Branch ur) hours as needed for Constipati on. sennosides- Yes [id number] 1{tbl} Take 1 Univers docusate 2-09 tablet by ity of sodium 00:00: mouth 2 [place] 8.6-50 mg 00 (two) Medical per tablet times Branch daily. hydrocortis Yes [id number] Apply to Univers one 2.5 % 2-09 affected ity of cream 00:00: area(s) 2 [place] 00 (two) Medical times Branch daily. blood sugar Yes [id number] Use to Univers diagnostic 11-21 check ity of (FREESTYLE 00:00: blood [place] LITE 00 glucose Medical STRIPS) 4-5 times Branch strip daily. Polyethylen 2020-0 Yes [id number] 17g Take 1 Univers e Glycol 2-09 Packet by ity of 3350 17 00:00: mouth [place] gram powder 00 every 24 Medi jose c (twenty-fo Branch ur) hours as needed for Constipati on. sennosides- Yes [id number] 1{tbl} Take 1 Univers docusate 2-09 tablet by ity of sodium 00:00: mouth 2 [place] 8.6-50 mg 00 (two) Medical per tablet times Branch daily. hydrocortis Yes [id number] Apply to [facility] one 2.5 % 11-21 affected ity of cream 00:00: area(s) 2 [place] 00 (two) Medical times Branch daily. blood sugar Yes [id number] Use to [facility] diagnostic 11-21 check ity of (FREESTYLE 00:00: blood [place] LITE 00 glucose Medical STRIPS) 4-5 times Branch strip daily. Polyethylen Yes [id number] 17g Take 1 Univers e Glycol 11-21 Packet by ity of 3350 17 00:00: mouth [place] gram powder 00 every 24 Medi jose c (twenty-fo Branch ur) hours as needed for Constipati on. Insulin 2020- No [id number] 15U inject 15 Univers Glargine 11-21- Units ity of (LANTUS 00:00: 05:59 under the [employer] SOLOSTAR 00 :00 skin every Medic al U-100 morning Branch INSULIN) for 30 100 unit/mL days. (3 mL) injection venlafaxine 2020- No [id number] 150mg Take 1 Univers XR 150 mg 11-21 capsule by ity of 24 hr 00:00: 05:59 mouth 3 [place] capsule 00 :00 (three) Medical times Branch daily for 30 days. Insulin 2020- No [id number] 15U inject 15 Univers Glargine 11-21-12 Units ity of (LANTUS 00:00: 05:59 under the Path[employer] SOLOSTAR 00 :00 skin every Medic al U-100 morning Branch INSULIN) for 30 100 unit/mL days. (3 mL) injection venlafaxine 2020- No [id number] 150mg Take 1 Univers XR 150 mg 11-21- capsule by ity of 24 hr 00:00: 05:59 mouth 3 [place] capsule 00 :00 (three) Medical times Branch daily for 30 days. triamcinolo 2020- No [id number] Apply to [facility] ne 11-21-04 area(s) 2 ity of acetonide 00:00: 00:00 (two) [place] 0.1 % cream 00 :00 times Medical daily. Branch cephALEXin 2020- No [id number] 1000mg Take 2 Univers 500 mg 11-21 capsules ity of capsule 00:00: 00:00 by mouth 3 [place] 00 :00 (three) Medical times Branch daily. doxycycline 2020- No [id number] 100mg Take 1 Univers hyclate 100 11-21 capsule by i ty of mg capsule 00:00: 00:00 mouth [place] 00 :00 every 12 Medical (twelve) Branch hours. lactobacill 2020- No [id number] 1{tbl} Take 1 Univers us 11-21 tablet by ity of acidophilus 00:00: 00:00 mouth 2 [place] 25 million 00 :00 (two) Medical cell -100 times Branch mg captab daily. bisacodyL 2020- No [id number] 10mg Insert 1 Univers 10 mg 11-21 Suppositor ity of suppository 00:00: 00:00 y into [place] 00 :00 rectum at Medical bedtime as Branch needed for Constipati on. ALPRAZolam 2020- No [id number] .25mg Take 1 Univers (XANAX) 11-21 tablet by ity of 0.25 mg 00:00: 00:00 mouth 2 [place] tablet 00 :00 (two) Medical times Branch daily. hydrOXYzine 2020- No [id number] 20mg Take 2 Univers 10 mg 11-21 [...] Units ity of (NOVOLOG 01:13: under the [facility] FLEXPEN SC) 36 skin. Medical Branch ALPRAZolam [...] Units ity of (NOVOLOG 01:13: under the [facility] FLEXPEN SC) 36 skin. Medical Branch ALPRAZolam [...] under the [facility] s FLEXPEN SC) 36 skin. Medical Branch ALPRAZolam 2019-10 Yes .25mg Take 0.25 U nivers (XANAX) 1-12 mg by ity of 0.25 mg 01:13: mouth 2 [place] tablet 36 (two) Medical times Branch daily. HYDROXYZINE 2019-10 2020- No 25mg Take 25 mg Univers PAMOATE 1-11 11-11 by mouth ity of ORAL 20:04: 00:00 daily. [place] 34 :00 Medical Branch hydrocortis 2019-10 Yes [id number] Apply to Univers one 2.5 % 1-11 affected ity of cream 00:00: area(s) 2 [place] 00 (two) Medical times Branch daily. hydrOXYzine 2019-10 Yes [id number] 20mg Take 2 Univers 10 mg 1-11 tablets by ity of tablet 00:00: mouth [place] 00 every 8 Medical (eight) Branch hours as needed for Itching or Anxiety. Polyethylen 2019-10 Yes [id number] 17g Take 1 Univers e Glycol 1-11 Packet by ity of 3350 17 00:00: mouth [place] gram powder 00 every 24 Medi jose c (twenty-fo Branch ur) hours as needed for Constipati on. hydrocortis 2019-10 Yes [id number] Apply to Univers one 2.5 % 1-11 affected ity of cream 00:00: area(s) 2 [place] 00 (two) Medical times Branch daily. hydrOXYzine 2019- Yes [id number] 20mg Take 2 Univers 10 mg 1-11 tablets by ity of tablet 00:00: mouth [place] 00 every 8 Medical (eight) Branch hours as needed for Itching or Anxiety. Polyethylen 2019- Yes [id number] 17g Take 1 Univers e Glycol 1-11 Packet by ity of 3350 17 00:00: mouth [place] gram powder 00 every 24 Medi jose c (twenty-fo Branch ur) hours as needed for Constipati on. hydrocortis 2019- Yes [id number] Apply to Univers one 2.5 % 1-11 affected ity of cream 00:00: area(s) 2 [place] (two) Medical times Branch daily. hydrOXYzine 2019-10 Yes [id number] 20mg Take 2 Univers 10 mg 1-11 tablets by ity of tablet 00:00: mouth [place] 00 every 8 Medical (eight) Branch hours as needed for Itching or Anxiety. Polyethylen 2019- Yes [id number] 17g Take 1 Univers e Glycol 1-11 Packet by ity of 3350 17 00:00: mouth [place] gram powder 00 every 24 Medi jose c (twenty-fo Branch ur) hours as needed for Constipati on. hydrocortis 2019-10 Yes [id number] Apply to Univers one 2.5 % 1-11 affected ity of cream 00:00: area(s) 2 [place] (two) Medical times Branch daily. hydrOXYzine 2019-10 Yes [id number] 20mg Take 2 Univers 10 mg 1-11 tablets by ity of tablet 00:00: mouth [place] 00 every 8 Medical (eight) Branch hours as needed for Itching or Anxiety. Polyethylen 2019-10 Yes [id number] 17g Take 1 Univers e Glycol 1-11 Packet by ity of 3350 17 00:00: mouth [place] gram powder 00 every 24 Medi jose c (twenty-fo Branch ur) hours as needed for Constipati on. hydrocortis 2019-10 Yes [id number] Apply to Univers one 2.5 % 1-11 affected ity of cream 00:00: area(s) 2 [place] 00 (two) Medical times Branch daily. hydrOXYzine 2019-10 Yes [id number] 20mg Take 2 Univers 10 mg 1-11 tablets by ity of tablet 00:00: mouth [place] 00 every 8 Medical (eight) Branch hours as needed for Itching or Anxiety. Polyethylen 2019- Yes [id number] 17g Take 1 Univers e Glycol 1-11 Packet by ity of 3350 17 00:00: mouth [place] gram powder 00 every 24 Medi jose c (twenty-fo Branch ur) hours as needed for Constipati on. hydrocortis 2019-10 Yes [id number] Apply to Univers one 2.5 % 1-11 affected ity of cream 00:00: area(s) 2 [place] 00 (two) Medical times Branch daily. hydrOXYzine 2019- Yes [id number] 20mg Take 2 Univers 10 mg 1-11 tablets by ity of tablet 00:00: mouth [place] 00 every 8 Medical (eight) Branch hours as needed for Itching or Anxiety. Polyethylen 2019- Yes [id number] 17g Take 1 Univers e Glycol 1-11 Packet by ity of 3350 17 00:00: mouth [place] gram powder 00 every 24 Medi ojse c (twenty-fo Branch ur) hours as needed for Constipati on. hydrocortis 2019- Yes [id number] Apply to Univers one 2.5 % 1-11 affected ity of cream 00:00: area(s) 2 [place] 00 (two) Medical times Branch daily. hydrOXYzine 2019- Yes [id number] 20mg Take 2 Univers 10 mg 1-11 tablets by ity of tablet 00:00: mouth [place] 00 every 8 Medical (eight) Branch hours as needed for Itching or Anxiety. Polyethylen 2019- Yes [id number] 17g Take 1 Univers e Glycol 1-11 Packet by ity of 3350 17 00:00: mouth [place] gram powder 00 every 24 Medi jose c (twenty-fo Branch ur) hours as needed for Constipati on. triamcinolo 2019- 2020- No [id number] Apply to Univers ne 10-23 area(s) 2 ity of acetonide 00:00: 05:59 (two) [place] 0.1 % cream 00 :00 times Medical daily for Branch 14 days. triamcinolo 2019- 2020- No [id number] Apply to Univers ne 10-23 area(s) 2 ity of acetonide 00:00: 05:59 (two) [place] 0.1 % cream 00 :00 times Medical daily for Branch 14 days. triamcinolo 2020- 2020- No [id number] Apply to [facility] ne 10-23 area(s) 2 ity of acetonide 00:00: 05:59 (two) [place] 0.1 % cream 00 :00 times Medical daily for Branch 14 days. KCL 2019- 2020- No 40meq 40 mEq, Univers (KLOR-CON 1-10 11-10 Oral, ONCE ity of M20) tablet 16:15: 16:23 NOW, 1 [place] 40 mEq 00 :00 dose, [facility] 08/22/20 Branch at 1015, Routine HYDROmorpho 2019-10 Yes 1mg 1 mg, Unive rs ne 1-10 Oral, ity of (DILAUDID) 15:07: Q6HPRN, [place] tablet 1 mg 53 Starting [facility] 08/22/20 at 0907, Until Discontinu ed, Routine, Pain (scale 7-10) hydrocortis 2019-10 Yes Topical Uni vers one 2.5 % 1-10 (Apply To ity o f cream 02:00: Affected [place] 00 Areas), Medical BID, First Branch dose on [facility] 08/21/20 at 2000, Until Discontinu ed, Routine triamcinolo 2019-10 Yes Topical, Un toi ne 1-10 BID, First ity of acetonide 02:00: dose on [place] (TRIDERM) [facility] Medical 0.1 % cream 08/21/20 at Br anch 2000, Until Discontinu ed, Routine hydrOXYzine 2019-10 Yes 20mg 20 mg, Univ ers (ATARAX) 09 Oral, ity of tablet 20 17:39: Q8HPRN, [place] mg 12 Starting [facility] 08/21/20 at 1139, Until Discontinu ed, Routine, Itching, Anxiety sennosides- 2019-10 Yes 1{tbl} 1 tablet, Univers docusate 10-21 Oral, ity of sodium 15:00: DAILY, [place] (SENOKOT-S) 00 First dose Me dical 8.6-50 mg on [facility] per tablet 08/21/20 at 1 tablet [...] dose [place] capsule 150 00 on [facility] Medica l mg 08/21/20 [...] 25 59 :43 Starting Medica l mg [facility] 08/21/20 at 0656, Until Fri08/21/20 at 1139, Routine, Itching, Mild Rash, Congestion /Allergies , alternate with hydroxyzin e hydrOXYzine 2019-10- No 10mg 10 mg, Uni vers (ATARAX) 10-21 Oral, ity of tablet 10 10:20: 12:57 Q6HPRN, [place] mg 22 :12 Starting Medical [facility] 08/21/20 at 0420, Until Fri08/21/20 at [...] 1 ity o f 09:30: 09:14 dose, [facility] 00 :00 08/21/20 at [facility] 0330, Branch Routine Polyethylen 2019-10 Yes 17g 17 g, [facility] Glycol 10-21 Oral, ity of 3350 08:29: [id number], [place] (MIRALAX) 09 Starting Medica l powder 17 g [facility] 08/21/20 at 0229, Until Discontinu ed, Routine, Constipati on lanolin 2019-10 Yes Topical, Univer s alcohol-mo- 10-21 PRN, ity of w.pet-ceres 08:26: Starting [place] (EUCERIN) 30 [facility] Medical cream 08/21/20 at Branch [...] 1-3) sotalol 2019-10 2020- No Take by [facility] s (BETAPACE) 10-21 mouth ity of 240 mg 07:43: 00:00 every 12 [place] tablet 30 :00 (twelve) Medical hours. Branch blood sugar Yes Use to [facility] ers diagnostic 4-25 check ity of (FREESTYLE 00:00: blood [place] LITE 00 glucose Medical STRIPS) 4-5 times Branch strip daily. blood sugar Yes Use to [facility] ers diagnostic 4-25 check ity of (FREESTYLE 00:00: blood [place] LITE 00 glucose Medical STRIPS) 4-5 times Branch strip daily. blood sugar Yes Use to [facility] ers diagnostic 4-25 check ity of (FREESTYLE 00:00: blood [place] LITE 00 glucose Medical STRIPS) 4-5 times Branch strip daily. blood sugar Yes Use to [facility] ers diagnostic 4-25 check ity [...] 2021-08-22 13:00:00 148 mm[Hg] [facility]iver [facility] Diastolic blood 2021-08-22 13:00:00 84 mm[Hg] Unive [facility] Heart rate 2021-08-22 13:00:00 103 /min [facility] Respiratory rate 2021-08-22 13:00:00 18 /min [facility] Oxygen saturation in 2021-08-22 13:00:00 95 /min University of Arterial blood by [facility] [place] Pulse oximetry [place] Body temperature 2021-08-22 12:22:00 36.72 [place] [facility] Systolic blood 2020-12-17 18:35:00 139 mm[Hg] Univer [facility] Diastolic blood 2020-12-17 18:35:00 87 mm[Hg] Unive [facility] Heart rate 2020-12-17 18:35:00 110 /min [facility] Body temperature 2020-12-17 18:35:00 37.72 [facility] Respiratory rate 2020-12-17 18:35:00 18 /min [facility] O[facility] saturation in 2020-12-17 18:35:00 93 /min University of Arterial blood by [facility] Pulse oximetry Branch Body height [...] 93 /min University of Arterial blood by [facility] Pulse oximetry Branch Body height [...] 93 /min University of Arterial blood by [facility] Pulse oximetry Branch Body weight 2020-08-21 07:20:00 104.962 kg [facility] [place] [facility] BMI 2020-08-21 07:20:00 32.27 kg/m2 [facility] [place] [facility] Systolic blood 2020-08-23 19:27:00 140 mm[Hg] Univer sity of pressure [facility] Diastolic blood 2020-08-23 19:27:00 79 mm[Hg] [facility] Heart rate 2020-08-23 19:27:00 99 /min [facility] Body temperature 2020-08-23 19:27:00 36 [facility] Respiratory rate 2020-08-23 19:27:00 18 /min [facility] Oxygen saturation in 2020-08-23 19:27:00 93 /min [facility] blood by [facility] Pulse oximetry [place] Body weight 2020-08-21 07:20:00 104.962 kg [facility] BMI 2020-08-21 07:20:00 32.27 kg/m2 [facility] Procedures Procedure Date / Time Performing Clinician Source Performed POCT GLUCOSE (AUTOMATED) 2020-12-17 15:42:00 Favio Harrisonal G Uni [facility] BASIC METABOLIC PANEL 2020-12-17 10:45:00 Paul Bean [facility] (NA, K, CL, CO2, GLUCOSE, [facility] BUN, CREATININE, CA) CBC WITH DIFF 2020-12-17 10:45:00 [facility] POCT GLUCOSE (AUTOMATED) 2020-12-17 02:36:00 [facility] XR TIBIA FIBULA 2 VW LEFT 2020-12-16 23:38:00 [facility] ([facility]) 2020-12-16 23:20:00 Harrison, Premal [facility] PO[facility] GLUCOSE (AUTOMATED) 2020-12-16 20:10:00 Harrison, Premal [facility] PO[facility] GLUCOSE (AUTOMATED) 2020-12-16 14:43:00 Harrison[facility] BASIC METABOLIC PANEL 2020-12-16 13:51:00 Paul Bean [facility] (NA, K, CL, CO2, GLUCOSE, [facility] BUN, CREATININE, CA) CBC WITH DIFF 2020-12-16 13:51:00 [facility] POCT GLUCOSE (AUTOMATED) 2020-12-16 04:00:00 Harrison, Premal G Uni versity of [facility] POCT GLUCOSE (AUTOMATED) 2020-12-16 00:14:00 Harrison, Premal G Uni versity [facility] CT CHEST PULMONARY 2020-12-15 22:29:38 Paul Bean [facility] ANGIOGRAM [facility] POCT GLUCOSE (AUTOMATED) 2020-12-15 19:26:00 Harrison, [facility]al [facility] POCT GLUCOSE (AUTOMATED) 2020-12-15 15:13:00 Krupa, Premal G Uni [facility] HB ECG ROUTINE & RHYTHM 2020-12-15 14:25:27 Cailin Romo [facility] MAGNESIUM 2020-12-15 12:01:00 Paul Bean [facility] BASIC METABOLIC PANEL 2020-12-15 12:01:00 Paul Bean [facility] (NA, K, CL, CO2, GLUCOSE, [facility] BUN, CREATININE, CA) CBC WITH DIFF 2020-12-15 12:01:00 [facility] POCT GLUCOSE (AUTOMATED) 2020-12-15 03:57:00 [...] BASIC METABOLIC PANEL 2020-12-13 15:39:00 Paul Bean [facility] (NA, K, CL, CO2, GLUCOSE, [facility] BUN, CREATININE, CA) CBC WITH DIFF 2020-12-13 15:39:00 [facility] POCT GLUCOSE (AUTOMATED) 2020-12-13 14:06:00 Harrison, Premal G Uni versity of [facility] POCT GLUCOSE (AUTOMATED) 2020-12-13 03:07:00 Harrison, Premal G Uni versity of [facility] POCT GLUCOSE (AUTOMATED) 2020-12-12 23:52:00 Harrison, Premal G Uni versity of [facility] POCT GLUCOSE (AUTOMATED) 2020-12-12 20:28:00 Harrison, Premal G Uni versity of [facility] POCT GLUCOSE (AUTOMATED) 2020-12-12 19:14:00 Harrison, Premal G Uni versity of [facility] POCT GLUCOSE (AUTOMATED) 2020-12-12 14:33:00 Harrison, Premal G Uni versity of [facility] MAGNESIUM 2020-12-12 08:58:00 [facility] BASIC METABOLIC PANEL 2020-12-12 08:58:00 Paul Bean [facility] (NA, K, CL, CO2, GLUCOSE, [facility] BUN, CREATININE, CA) CBC WITH DIFF 2020-12-12 08:58:00 [facility] US ABDOMEN LIMITED 2020-12-12 06:32:26 Paul [facility] POCT GLUCOSE (AUTOMATED) 2020-12-12 03:40:00 Harrison, Premal G Uni versity of [facility] POCT GLUCOSE (AUTOMATED) 2020-12-12 00:06:00 Harrison, Premal G Uni versity of [facility] XR HIPS 3 VW LEFT 2020-12-11 20:20:00 Paul Bean [facility] HB ECG ROUTINE & RHYTHM 2020-12-11 20:04:06 Demetrius [facility] STRIP [facility] VITAMIN B6, PLASMA 2020-12-11 19:17:00 [facility] POCT GLUCOSE (AUTOMATED) 2020-12-11 19:06:00 Vika Harrison [facility] CREATINE KINASE 2020-12-11 18:22:00 Parvez [facility] VITAMIN B12, LEVEL 2020-12-11 18:22:[address] [facility] FOLATE 2020-12-11 18:22:[address] [facility] THYROID STIMULATING 2020-12-11 18:22:00 Demetrius [facility] HORMONE [facility] PROCALCITONIN 2020-12-11 18:22:00 Vikas [facility] VITAMIN B1 (THIAMINE), 2020-12-11 18:22:00 [facility] WHO[facility]LO[facility] CT HEAD WO CONTRAST 2020-12-11 14:07:35 Sweetie Stout [facility] URINALYSIS 2020-12-11 13:44:00 Singer [facility] URINE CULTURE 2020-12-11 13:44:00 Singer [facility] COVID-19 (ID NOW RAPID 2020-12-11 12:31:00 Paco Lacey [facility] TESTING) Medical Branch LAB ONLY COVID 2020-12-11 12:31:00 Singer [facility] INTERPRETATION [facility] XR CHEST 1 VW 2020-12-11 12:07:24 Singer [facility] BLOOD CULTURE SCREEN 2020-12-11 12:02:[address] [facility] MAGNESIUM 2020-12-11 12:02:00 Vikas [facility] FERRITIN SERUM 2020-12-11 12:02:[address] [facility] Kaley [facility] COMP. METABOLIC PANEL 2020-12-11 12:02:00 Singer [facility] ([id number]) [facility] CBC WITH DIFF 2020-12-11 12:02:00 Singer [facility] LACTIC ACID WHOLE BLOOD 2020-12-11 12:02:00 Singer Paco [facility] BLOOD CULTURE SCREEN 2020-12-11 11:42:[address] [facility] EMERGENCY SERVICES 2020-12-11 06:01:00 Doctor Unassigned, [facility] AGREEMENTS AND [place] [facility] [place] AUTHORIZATIONS HOSPITAL ADMISSION 2020-12-11 06:01:00 Doctor Unaowen, [facility] Name Medical [place] HOME HEALTH - OTHER 2020-11-11 06:01:00 Doctor Tabitha [facility] Name Medical [place] [facility]ALTH - OTHER 2020-10-30 06:01:00 Doctor Unaowen [facility] Name Medical [place] EXTERNAL PROVIDER RECORDS 2020-09-01 06:01:00 Doctor Tabitha, [facility] Name [facility] POCT GLUCOSE (AUTOMATED) 2020-08-23 18:09:00 Kelly Washington [facility] POCT GLUCOSE (AUTOMATED) 2020-08-23 14:14:00 Kelly Washington [facility] MAGNESIUM 2020-08-23 11:18:00 Ramya [facility] BASIC METABOLIC PANEL 2020-08-23 11:18:00 [place] [facility] (NA, K, CL, CO2, GLUCOSE, Medica l Branch BUN, CREATININE, CA) CBC WITH DIFF 2020-08-23 11:18:00 [place] [facility] POCT GLUCOSE (AUTOMATED) 2020-08-23 10:21:00 Kelly Washington [facility] POCT GLUCOSE (AUTOMATED) 2020-08-23 05:55:00 Kelly Washington [facility] POCT GLUCOSE (AUTOMATED) 2020-08-23 03:00:00 Stefania [facility]SE ([facility]OMATED) 2020-08-22 23:38:00 Bety Washingtonmarie Elias versity of [facility] POCT GLUCOSE (AUTOMATED) 2020-08-22 19:04:00 Bety Washingtonmarie [facility] POCT GLUCOSE (AUTOMATED) 2020-08-22 13:49:00 Kelly Washington Jada versity [facility] MAGNESIUM 2020-08-22 10:10:00 [facility] 2020-08-22 10:10:00 Aguila [facility] ([id number]) (ALB,T.PRO,BILI Medical Branch T,BU/BC,ALT,AST,ALK PHOS) BASIC METABOLIC PANEL 2020-08-22 10:10:00 [facility] (NA, K, CL, CO2, GLUCOSE, Medica l Branch BUN, CREATININE, CA) LIPID PANEL ([id number])(TOTAL 2020-08-22 10:10:00 [place], [facility] CHOLESTEROL, Medical [place] TRIGLYCERIDES, HDL) CBC WITH DIFF 2020-08-22 10:10:00 [facility] POCT GLUCOSE (AUTOMATED) 2020-08-22 10:10:00 Bety Washingtonmarie Elias [facility] POCT GLUCOSE (AUTOMATED) 2020-08-22 07:13:00 Kelly Washington Jada versity [facility] POCT GLUCOSE (AUTOMATED) 2020-08-22 02:24:00 Bety Washingtonmarie Elias versity [facility] POCT GLUCOSE (AUTOMATED) 2020-08-21 23:40:00 Kelly Washington Jada versity of [facility] POCT GLUCOSE (AUTOMATED) 2020-08-21 18:10:00 Kelly Washington Jada versity [facility] POCT GLUCOSE (AUTOMATED) 2020-08-21 13:39:00 Kelly Washington Jada versity [facility] ETHANOL 2020-08-21 12:35:00 [facility] 2020-08-21 12:35:00 Stefania [facility] GALV ONLY - SYPHILIS 2020-08-21 12:35:00 Ste[facility] LACTATE DEHYDROGENASE 2020-08-21 10:09:00 Ramya, [facility] GALV/CLC ONLY - URINE 2020-08-21 10:09:00 Richie [facility] DRUG (IMMUNOASSAY) - 4 ER Medica l Branch PANEL URINALYSIS 2020-08-21 10:09:00 Ramya, [facility] URINE CULTURE 2020-08-21 10:09:00 Ramya, [facility] PROCALCITONIN 2020-08-21 10:09:00 [place], [facility] POCT GLUCOSE (AUTOMATED) 2020-08-21 09:41:00 Stefania Kelly [facility] PROTHROMBIN TIME / INR 2020-08-21 08:32:00 [place], [facility] ACTIVATED PARTIAL 2020-08-21 08:32:00 [place], [facility] C-REACTIVE PROTEIN 2020-08-21 08:31:00 Ramya, [facility] HEPATIC FUNCTION PANEL 2020-08-21 08:31:00 [place], [facility] ([id number]) (ALB,T.PRO,BILI Medical Branch T,BU/BC,ALT,AST,ALK PHOS) BASIC METABOLIC PANEL 2020-08-21 08:31:00 [place], [facility] (NA, K, CL, CO2, GLUCOSE, [facility] BUN, CREATININE, CA) SEDIMENTATION RATE 2020-08-21 08:31:00 [place], [facility] CBC WITH DIFF 2020-08-21 08:31:00 [place], [facility] GLYCOSYLATED HEMOGLOBIN 2020-08-21 08:31:00 [place], [facility] (A1C) Medical Branch HIV 1/2 AG-AB WITH REFLEX 2020-08-21 08:31:00 Klely [place] [facility] [place] [facility] COVID-19 (ID NOW RAPID 2020-08-21 08:20:00 [facility] TESTING) Medical Branch LAB ONLY COVID 2020-08-21 08:20:00 [place] [facility] [place] INTERPRETATION [facility] Branch Encounters Start End Encounter Admission Attending Care Care Encounter Source Date/Time Date/Time Type Type Clinicians Facility Department ID 2020-08-21 Inpatient U STEFANIA [facility] [id number] Univers 01:07:00 KELLY brandenana [facility] 2021-08-22 2021-08-22 Emergency [facility] [id number] Univers 06:21:00 08:02:00 SWEETIE cantu [facility] 2021-08-22 2021-08-22 Emergency [facility] [id number] Univers 06:21:00 08:02:00 Sweetie LOTT [id number] i [place] [id number] [facility] 084 Branch 2021-08-09 2021-08-09 Outpatient JACQUELYN [facility]ES [facility] [id number] [facility] 10:27:03 10:27:03 ADRIANA lopez of Medicin e 2020-12-28 2020-12-28 Telephone [facility] 1.2.840.114 [id number] 00:00:00 00:00:00 Calvin H PRIMARY [id number] CARE 4.2.7.2.686 PAVILLION [id number] 220 2020-12-28 2020-12-28 Telephone [facility] 1.2.840.114 [id number] Univers 00:00:00 00:00:00 Calvin H PRIMARY [id number] it y [place] [id number] Md dical 220 Branch 2020-12-19 2020-12-19 Transition Tuan Peters 1.2.840.114 [id number] 00:00:00 00:00:00 of Care Ruchi Braswell [id number] [place] 4.2.7.2.686 [id number] 2020-12-19 2020-12-19 Transition Tuan Peters 1.2.840.114 [id number] Univers 00:00:00 00:00:00 of Care Ruchi Braswell [id number] it [place] [id number] [facility] 403 Branch 2020-12-11 2020-12-17 [facility] Paco Lacey 1.2.840.1 14 [id number] 05:11:00 16:00:00 Encounter Vika [place] [id number] [facility] 4.2.7.2.686 [id number] [facility] 2020-12-11 2020-12-17 [facility] Paco Lacey 1.2.840.1 [id number] [facility] 05:11:00 16:00:00 Encounter Vika Harrison [place] [id number] ity [facility] 4.2.[address] [place] [address] [id number] [facility] 096 Branch 2020-12-11 2020-12-17 Inpatient X [facility] [id number] Univers 05:11:00 16:00:00 pepe [facility] 2020-11-16 2020-11-16 Emergency X [facility] ERT [id number] [facility] 09:31:00 09:31:00 PACO cantu [facility] 2020-11-11 2020-11-11 Orders Doctor CUI 1.2.840.114 [id number] 00:00:00 00:00:00 Only UnassignedMONIQUE 350.1.13.[address] [place] 4.2.7.2.686 [id number] [id number] 2020-11-11 2020-11-11 Orders Doctor CUI 1.2.840.114 [id number] [facility] 00:00:00 00:00:00 Only Unassigned, MONIQUE 350.1.13.10 ity of [facility] 4.2.7.2.686 Jeff as [id number] [address] 2020-11-07 2020-11-07 [facility] [id number] 00:00:00 00:00:00 Angi Lott 350.1.13.10 [place] 4.2.7.2.686 Professio [id number] [address] 2020-11-07 2020-11-07 Telephone [facility] [id number] [facility] 00:00:00 00:00:00 Angi Lott 350.1.13.10 ity of [place] [id number] Md dic[address] 2020-10-30 2020-10-30 Orders Doctor BASILIA 1.2.840.114 [id number] 00:00:00 00:00:00 Only Unassigned, MONIQUE 350.1.13.10 [facility] 4.2.7.2.686 [id number] [facility] 2020-10-30 2020-10-30 Orders Doctor BASILIA 1.2.840.114 [id number] [facility] 00:00:00 00:00:00 Only Unassigned, MONIQUE 350.1.13.10 ity of [place] [facility] 4.2.7.2.686 Jeff as [id number] [address] 2020-09-26 2020-09-26 Telephone Eliot [facility] 1.2.840.114 [id number] 00:00:00 00:00:00 [facility] 350.1.13.10 CLINICS 4.2.7.2.686 [id number] [facility] 2020-09-26 2020-09-26 Telephone Eliot [facility] 1.2.840.114 [id number] [facility] 00:00:00 00:00:00 [facility] 350.1.13.10 i ty of CL[place] [id number] [address] 2020-09-01 2020-09-01 Orders Doctor BASILIA 1.2.840.114 [id number] 00:00:00 00:00:00 Only Unassigned, MONIQUE 350.1.13.[address] [facility] 4.2.7.2.686 [id number] [id number] 2020-09-01 2020-09-01 Orders Doctor BASILIA 1.2.840.114 [id number] Univers 00:00:00 00:00:00 Only Unassigned, MONIQUE 350.1.13.[address] [place] [facility] 4.2.7.2.686 Jeff as [id number] [facility] 009 Branch 2020-08-25 2020-08-25 Transition Tuan Peters 1.2.840.114 [id number] 00:00:00 00:00:00 of Care Ruchi Braswell 350.1.13.10 [place] 4.2.7.2.686 [id number] 2020-08-25 2020-08-25 Transition Tuan Peters 1.2.840.114 [id number] Univers 00:00:00 00:00:00 of Care Ruchi Braswell 350.1.13.10 it y of [place] [id number] [facility] 403 [place] 2020-08-21 2020-08-23 [facility] Ayleen 1.2.840.114 [id number] 01:07:00 18:35:00 Encounter Kelly Monique 350.1.13.10 [facility] 4.2.7.2.686 [id number] [facility] 2020-08-21 2020-08-23 [facility] 1. 2.840.114 [id number] [facility] 01:07:00 18:35:00 Encounter Mukul Gallardo 350.1.13. 10 ity of [facility] 4.2.7.2.686 Jeff as [id number] [address] Results Test Description Test Time Test Comments Results Result Comments Source POCT GLUCOSE (AUTOMATED) 2020-12-17 15:43:35 Test Item Value Reference Range Interpretation Comme nts POCT GLU (test code = 5290592351) 129 mg/dL 70-110 H Lab Interpretation (test code = 94303-1) Abnormal [facility] (NA, K, CL, CO2, GLUCOSE, BUN, CREATININE, CA)2020-12-17 11:45:07 Test Item Value Reference Range Interpretation Comments NA (test code = 137 mmol/L 135-145 8906070202) K (test code = 3.5 mmol/L 3.5-5.0 6204221557) CL (test code = 103 mmol/L 98-108 0863526834) CO2 TOTAL (test code = 26 mmol/L 23-31 6592459899) AGAP (test code = 2-16 1947537377) BUN (test code = 11 mg/dL 7-23 6023519532) GLUCOSE (test code = 175 mg/dL 70-110 H 2316292646) CREATININE (test code = 0.62 mg/dL 0.60-1.25 8446799472) CALCIUM (test code = 9.0 mg/dL 8.6-10.6 4615000615) eGFR Calculation mL/min/1.73m2 (Non-) (test code = 5383647675) eGFR Calculation mL/min/1.73m2 () (test code = 4774698648) JAMES (test code = JAMES) Association of [...] tests). Lab Interpretation Abnormal (test code = 72464-1) General acute hospital WITH [id number] 11:07:27 Test Item Value Reference Range Interpretation [...] RDW-SD (test code = 45.2 fL 38.5-51.6 25700-6) RDW-CV (test code = 16.9 % 12.1-15.4 H 788-0) PLT (test code = See_Comment H [Automated 777-3) message] The sy stem which generated this result transmitted reference range : 150 - 328 10*3/ ?L. The reference r torito was not used to interpret this result as normal/abnormal . MPV (test code = 8.1 fL 9.8-13.0 L 48518-4) NRBC/100 WBC (test See_Comment [Automat ed code = 3260990055) message] The system which generated this result transmitted reference range : 0.0 - 10.0 /100 WBCs. The refer ence range was not u sed to interpret th is result as normal/abnormal . NRBC x10^3 (test code <0.01 See_Comment [Auto mated = 5000672627) message] The s ystem which generated this result transmitted reference range : 10*3/?L. The reference range was not used to interpret this result as normal/abnormal . GRAN MAT (NEUT) % 72.8 % (test code = 770-8) IMM GRAN % (test code 0.60 % = 8130463833) LYMPH % (test code = 18.4 % 736-9) MONO % (test code = 5.7 % 5905-5) EOS % (test code = 1.8 % 713-8) BASO % (test code = 0.7 % 706-2) GRAN MAT x10^3(ANC) 8.23 10*3/uL 1.99-6.95 H (test code = 0210450251) IMM GRAN x10^3 (test 0.07 10*3/uL 0.00-0.06 H code = 8152329057) LYMPH x10^3 (test code 2.08 10*3/uL 1.09-3.23 = 731-0) MONO x10^3 (test code 0.65 10*3/uL 0.36-1.02 = 742-7) EOS x10^3 (test code = 0.20 10*3/uL 0.06-0.53 711-2) BASO x10^3 (test code 0.08 10*3/uL 0.01-0.09 = 704-7) Lab Interpretation Abnormal (test code = 40560-8) [facility]2020-12-17 06:03:38 Test Item Value Reference Range Interpretation Comments POCT GLU (test code = 7741027811) 75 mg/dL 70-110 Lab Interpretation (test code = Normal 22778-6) [facility] B6, [id number] 00:01:00 Test Item Value Reference Range Interpretation Comments VIT B6 (test code = 13.1 nmol/L 20.0-125.0 L INTERPRE TIVE 73984-4) INFORMATION: Vi tamin B6 (Pyridoxal 5-Phosphate) Pyridoxal 5'-phosphate me asured in a specimen collected follo wing an 8-hour or overnight fast accurately clara keene vitamin B6 nutritional sta tus. Non-fasting spe cimen concentration reflects recent vitamin intake. This test was develo ped and its perform ance characteristics determined by [facility]. I t has not been cleare d or approved by the [place] Food and Drug Administration. This test was perfor med in a CLIA certifie d laboratory and is intended for cl inical purposes.Perfor med By: [employer] [place] [address] [id number] Director: Namrata Klein MD Lab Interpretation Abnormal (test code = 18022-1) [facility] TIBIA FIBULA 2 VW [id number] 23:57:09 Tricompartmental knee joint osteoarthrosis.XR TIBIA FIBULA [...] No acute fracture or dislocation.IMPRESSIONTricompartmental knee joint osteoarthrosis.[facility] GLUCOSE (AUTOMATED) 2020-12-16 23:27:00 Test Item Value Reference Range Interpretation Comments POCT GLU (test code = 1257631433) 114 mg/dL 70-110 H Lab Interpretation (test code = Abnormal 44559-5) [facility] GLUCOSE (AUTOMATED)2020-12-16 20:12:00 Test Item Value Reference Range Interpretation Comments POCT GLU (test code = 7074254374) 105 mg/dL 70-110 Lab Interpretation (test code = Normal 95133-6) [facility] GLUCOSE (AUTOMATED)2020-12-16 14:44:00 Test Item Value Reference Range Interpretation Comments POCT GLU (test code = 1854854692) 153 mg/dL 70-110 H Lab Interpretation (test code = Abnormal 09191-6) [facility] METABOLIC PANEL (NA, K, CL, CO2, GLUCOSE, BUN, CREATININE, CA)2020-12-16 14:23:00 Test Item Value Reference Range Interpretation Comments NA (test code = 138 mmol/L 135-145 7001933280) K (test code = 3.4 mmol/L 3.5-5.0 L 1217774147) CL (test code = 100 mmol/L 98-108 9419663609) CO2 TOTAL (test code = 31 mmol/L 23-31 1277335332) AGAP (test code = 2-16 1593006366) BUN (test code = 11 mg/dL 7-23 2797601097) GLUCOSE (test code = 162 mg/dL 70-110 H 1471887250) CREATININE (test code = 0.64 mg/dL 0.60-1.25 0197646685) CALCIUM (test code = 8.9 mg/dL 8.6-10.6 8624436732) eGFR Calculation mL/min/1.73m2 (Non-) (test code = 3501266088) eGFR Calculation mL/min/1.73m2 () (test code = 7824332365) JAMES (test code = JAMES) Association of [...] tests). Lab Interpretation Abnormal (test code = 07407-1) General acute hospital WITH [id number] 14:05:00 Test Item Value Reference Range Interpretation [...] RDW-SD (test code = 45.4 fL 38.5-51.6 42999-6) RDW-CV (test code = 17.0 % 12.1-15.4 H 788-0) PLT (test code = See_Comment H [Automated 777-3) message] The sy stem which generated this result transmitted reference range : 150 - 328 10*3/ ?L. The reference r torito was not used to interpret this result as normal/abnormal . MPV (test code = 8.0 fL 9.8-13.0 L 66829-9) NRBC/100 WBC (test See_Comment [Automat ed code = 2009999219) message] The system which generated this result transmitted reference range : 0.0 - 10.0 /100 WBCs. The refer ence range was not u sed to interpret th is result as normal/abnormal . NRBC x10^3 (test code <0.01 See_Comment [Auto mated = 8448360808) message] The s ystem which generated this result transmitted reference range : 10*3/?L. The reference range was not used to interpret this result as normal/abnormal . GRAN MAT (NEUT) % 70.0 % (test code = 770-8) IMM GRAN % (test code 0.70 % = 4858114927) LYMPH % (test code = 20.5 % 736-9) MONO % (test code = 7.1 % 5905-5) EOS % (test code = 1.0 % 713-8) BASO % (test code = 0.7 % 706-2) GRAN MAT x10^3(ANC) 9.44 10*3/uL 1.99-6.95 H (test code = 4642899862) IMM GRAN x10^3 (test 0.09 10*3/uL 0.00-0.06 H code = 5840501714) LYMPH x10^3 (test code 2.76 10*3/uL 1.09-3.23 = 731-0) MONO x10^3 (test code 0.96 10*3/uL 0.36-1.02 = 742-7) EOS x10^3 (test code = 0.13 10*3/uL 0.06-0.53 711-2) BASO x10^3 (test code 0.10 10*3/uL 0.01-0.09 H = 704-7) Lab Interpretation Abnormal (test code = 69679-8) [facility] # [id number] 13:01:00 Test Item Value Reference Range Interpretation Comments Blood Culture-Aerobic No organisms No growth Previo us (test code = 88377-9) isolated prelim inary verified result was Culture In Progress on 12/11/2020 at 100 1 CSTPrevious preliminary verified result was No growth a t 24 hours on 12/12/2020 at 070 1 CSTPrevious preliminary verified result was No growth a t 48 hours on 12/13/2020 at 070 1 CSTPrevious preliminary verified result was No growth a t 72 hours on 12/14/2020 at 070 1 ORTHOPEDIC PHYSICAL THERAPIST Blood No organisms No growth Previous Culture-Anaerobic isolated preliminar y (test code = 95053-2) verifi ed result was Culture In Progress on 12/11/2020 at 100 1 CSTPrevious preliminary verified result was No growth a t 24 hours on 12/12/2020 at 070 1 CSTPrevious preliminary verified result was No growth a t 48 hours on 12/13/2020 at 070 1 CSTPrevious preliminary verified result was No growth a t 72 hours on 12/14/2020 at 070 1 ORTHOPEDIC PHYSICAL THERAPIST Lab Interpretation Normal (test code = 75538-3) [facility] Culture - Peripheral # [id number] 13:01:00 Test Item Value Reference Range Interpretation Comments Blood Culture-Aerobic No organisms No growth Previo us (test code = 96001-1) isolated prelim inary verified result was Culture In Progress on 12/11/2020 at 100 1 CSTPrevious preliminary verified result was No growth a t 24 hours on 12/12/2020 at 070 1 CSTPrevious preliminary verified result was No growth a t 48 hours on 12/13/2020 at 070 1 CSTPrevious preliminary verified result was No growth a t 72 hours on 12/14/2020 at 070 1 ORTHOPEDIC PHYSICAL THERAPIST Blood No organisms No growth Previous Culture-Anaerobic isolated preliminar y (test code = 70388-0) verifi ed result was Culture In Progress on 12/11/2020 at 100 1 CSTPrevious preliminary verified result was No growth a t 24 hours on 12/12/2020 at 070 1 CSTPrevious preliminary verified result was No growth a t 48 hours on 12/13/2020 at 070 1 CSTPrevious preliminary verified result was No growth a t 72 hours on 12/14/2020 at 070 1 ORTHOPEDIC PHYSICAL THERAPIST Lab Interpretation Normal (test code = 24939-6) [facility] GLUCOSE (AUTOMATED)2020-12-16 04:01:00 Test Item Value Reference Range Interpretation Comments POCT GLU (test code = 1009579406) 156 mg/dL 70-110 H Lab Interpretation (test code = Abnormal 51708-6) [facility]2020-12-16 00:24:00 Test Item Value Reference Range Interpretation Comments POCT GLU (test code = 9684848739) 115 mg/dL 70-110 H Lab Interpretation (test code = Abnormal 57127-3) [facility] CHEST PULMONARY [id number] 23:34:55No pulmonary emboli. No interval change in [...] stableappearance of intra and extrahepatic biliary ductal dilatation.[facility] GLUCOSE (AUTOMATED)2020-12-15 19:28:00 Test Item Value Reference Range Interpretation Comments POCT GLU (test code = 7862624318) 140 mg/dL 70-110 H Lab Interpretation (test code = Abnormal 24463-7) [facility]2021-[facility]-05 15:26:00 Test Item Value Reference Range Interpretation Comments MAGNESIUM (test code = 7025498583) 2.2 mg/dL 1.7-2.4 Lab Interpretation (test code = Normal 06909-3) [facility] GLUCOSE (AUTOMATED)2020-12-15 15:15:00 Test Item Value Reference Range Interpretation Comments POCT GLU (test code = 2536897709) 181 mg/dL 70-110 H Lab Interpretation (test code = Abnormal 35631-1) [facility] METABOLIC PANEL (NA, K, CL, CO2, GLUCOSE, BUN, CREATININE, CA)2020-12-15 13:07:00 Test Item Value Reference Range Interpretation Comments NA (test code = 136 mmol/L 135-145 7127450063) K (test code = 3.6 mmol/L 3.5-5.0 8270079907) CL (test code = 96 mmol/L 98-108 L 3199670818) CO2 TOTAL (test code = 29 mmol/L 23-31 7109252575) AGAP (test code = 2-16 9385786027) BUN (test code = 12 mg/dL 7-23 4274462551) GLUCOSE (test code = 183 mg/dL 70-110 H 1092989656) CREATININE (test code = 0.70 mg/dL 0.60-1.25 9488129952) CALCIUM (test code = 9.2 mg/dL 8.6-10.6 7066843459) eGFR Calculation mL/min/1.73m2 (Non-) (test code = 5488502141) eGFR Calculation mL/min/1.73m2 () (test code = 7146422499) JAMES (test code = JAMES) Association of [...] tests). Lab Interpretation Abnormal (test code = 64323-3) [facility] acute hospital WITH [id number] 12:32:00 Test Item Value Reference Range Interpretation Comments WBC (test code = See_Comment H [Automated 3190-2) message] The system which generated this result transmit ronan reference range : 4.20 - 10.70 10*3/?L. The reference range was not used to interpret this result as normal/abnormal . RBC (test code = See_Comment H [Automated 089-8) message] The system which generated this result [...] RDW-SD (test code = 44.4 fL 38.5-51.6 83398-0) RDW-CV (test code = 17.7 % 12.1-15.4 H 788-0) PLT (test code = See_Comment H [Automated 777-3) message] The system which generated this result transmit ronan reference range : 150 - 328 10*3/ ?L. The reference range was not u sed to interpret th is result as normal/abnormal . MPV (test code = 8.1 fL 9.8-13.0 L 86429-5) NRBC/100 WBC (test See_Comment [Automat ed code = 1342072551) message] The system which generated this result transmit ronan reference range : 0.0 - 10.0 /100 WBCs. The reference range was not used to interpret this result as normal/abnormal . NRBC x10^3 (test code <0.01 See_Comment [Auto mated = 8362198851) message] The system which generated this result transmit ronan reference range : 10*3/?L. The reference range was not used to interpret this result as normal/abnormal . GRAN MAT (NEUT) % 74.5 % (test code = 770-8) IMM GRAN % (test code 0.70 % = 4899916553) LYMPH % (test code = 17.4 % 736-9) MONO % (test code = 6.8 % 5905-5) EOS % (test code = 0.2 % 713-8) BASO % (test code = 0.4 % 706-2) GRAN MAT x10^3(ANC) 11.99 10*3/uL 1.99-6.95 H (test code = 7281915007) IMM GRAN x10^3 (test 0.11 10*3/uL 0.00-0.06 H code = 9554705585) LYMPH x10^3 (test code 2.80 10*3/uL 1.09-3.23 = 731-0) MONO x10^3 (test code 1.10 10*3/uL 0.36-1.02 H = 742-7) EOS x10^3 (test code = 0.03 10*3/uL 0.06-0.53 L 711-2) BASO x10^3 (test code 0.06 10*3/uL 0.01-0.09 = 704-7) Lab Interpretation Abnormal (test code = 33660-8) [facility] GLUCOSE (AUTOMATED)2020-12-15 04:16:00 Test Item Value Reference Range Interpretation Comments POCT GLU (test code = 1875304171) 200 mg/dL 70-110 H Lab Interpretation (test code = Abnormal 19414-3) [facility]Allen[facility]IT[facility]IN B1 (THIAMINE), WHOLE [id number] 00:30:00 Test Item Value Reference Range Interpretation Comments Vitamin B1, Whole 136 nmol/L 70-180 INTERPRETI VE INFORMATION: Blood (test code = Vitamin B 1, Whole Blood 23300-6) This assay júnior ures the concentration o f thiamine diphosphate (TD P), the primary active form of vitamin B1. Nick roximately 90 percent of v itamin B1 present in whol e blood is TDP. Thiamine a nd thiamine monoph osphate, which comprise the remaining 10 pe rcent, are not measured. T his test was developed a nd its performance characteristics determined by [facility]. I t has not been cleared or approved by the [place] Food and Drug Administration. This test was performed i n a CLIA certified labor atory and is intended for clinical purposes.Perfor med By: [facility] [address] [place], [place] [address]Q aboratory Director: Namrata Klein MD [facility] GLUCOSE (AUTOMATED)2020-12-14 23:35:00 Test Item Value Reference Range Interpretation Comments POCT GLU (test code = 8248840162) 151 mg/dL 70-110 H Lab Interpretation (test code = Abnormal 84091-6) [facility] GLUCOSE (AUTOMATED)2020-12-14 19:19:00 Test Item Value Reference Range Interpretation Comments POCT GLU (test code = 1406432421) 193 mg/dL 70-110 H Lab Interpretation (test code = Abnormal 43411-6) [facility] GLUCOSE (AUTOMATED)2020-12-14 15:22:00 Test Item Value Reference Range Interpretation Comments POCT GLU (test code = 7230267662) 221 mg/dL 70-110 H Lab Interpretation (test code = Abnormal 66019-4) [facility] GLUCOSE (AUTOMATED)2020-12-14 02:37:00 Test Item Value Reference Range Interpretation Comments POCT GLU (test code = 5049900565) 210 mg/dL 70-110 H Lab Interpretation (test code = Abnormal 69826-8) [facility] GLUCOSE (AUTOMATED)2020-12-13 23:33:00 Test Item Value Reference Range Interpretation Comments POCT GLU (test code = 9988894802) 182 mg/dL 70-110 H Lab Interpretation (test code = Abnormal 50938-7) [facility] GLUCOSE (AUTOMATED)2020-12-13 18:09:00 Test Item Value Reference Range Interpretation Comments POCT GLU (test code = 8582127580) 150 mg/dL 70-110 H Lab Interpretation (test code = Abnormal 11264-9) [facility] METABOLIC PANEL (NA, K, CL, CO2, GLUCOSE, BUN, CREATININE, CA)2020-12-13 16:27:00 Test Item Value Reference Range Interpretation Comments NA (test code = 136 mmol/L 135-145 8525768386) K (test code = 3.7 mmol/L 3.5-5.0 1332248674) CL (test code = 96 mmol/L 98-108 L 6089698992) CO2 TOTAL (test code = 29 mmol/L 23-31 3362988789) AGAP (test code = 2-16 1527673538) BUN (test code = 6 mg/dL 7-23 L 9458395026) GLUCOSE (test code = 212 mg/dL 70-110 H 9180192004) CREATININE (test code = 0.61 mg/dL 0.60-1.25 9363519091) CALCIUM (test code = 9.5 mg/dL 8.6-10.6 5890731401) eGFR Calculation mL/min/1.73m2 (Non-) (test code = 8240513861) eGFR Calculation mL/min/1.73m2 () (test code = 8864566358) JAMES (test code = JAMES) Association of [...] tests). Lab Interpretation Abnormal (test code = 82144-0) General acute hospital WITH [id number] 16:10:00 Test Item Value Reference Range Interpretation Comments WBC (test code = See_Comment H [Automated 3690-2) message] The sy stem which generated this result transmitted reference range : 4.20 - 10.70 10*3/?L. The reference range was not used to interpret this result as normal/abnormal . RBC (test code = See_Comment H [Automated 139-8) message] The sy stem which generated this [...] RDW-SD (test code = 43.3 fL 38.5-51.6 38596-3) RDW-CV (test code = 16.2 % 12.1-15.4 H 788-0) PLT (test code = See_Comment H [Automated 777-3) message] The sy stem which generated this result transmitted reference range : 150 - 328 10*3/ ?L. The reference r torito was not used to interpret this result as normal/abnormal . MPV (test code = 8.2 fL 9.8-13.0 L 09945-6) NRBC/100 WBC (test See_Comment [Automat ed code = 8695418981) message] The system which generated this result transmitted reference range : 0.0 - 10.0 /100 WBCs. The refer ence range was not u sed to interpret th is result as normal/abnormal . NRBC x10^3 (test code <0.01 See_Comment [Auto mated = 8619100342) message] The s ystem which generated this result transmitted reference range : 10*3/?L. The reference range was not used to interpret this result as normal/abnormal . GRAN MAT (NEUT) % 86.2 % (test code = 770-8) IMM GRAN % (test code 0.70 % = 8520534615) LYMPH % (test code = 10.2 % 736-9) MONO % (test code = 2.5 % 5905-5) EOS % (test code = 0.1 % 713-8) BASO % (test code = 0.3 % 706-2) GRAN MAT x10^3(ANC) 9.61 10*3/uL 1.99-6.95 H (test code = 9071568724) IMM GRAN x10^3 (test 0.08 10*3/uL 0.00-0.06 H code = 2292156589) LYMPH x10^3 (test code 1.14 10*3/uL 1.09-3.23 = 731-0) MONO x10^3 (test code 0.28 10*3/uL 0.36-1.02 L = 742-7) EOS x10^3 (test code = <0.03 0.06-0.53 L 711-2) BASO x10^3 (test code 0.03 10*3/uL 0.01-0.09 = 704-7) Lab Interpretation Abnormal (test code = 42699-7) [facility]13 14:16:00 Test Item Value Reference Range Interpretation Comments POCT GLU (test code = 2857398612) 236 mg/dL 70-110 H Lab Interpretation (test code = Abnormal 92466-5) [facility] COVID [id number] 04:58:00COVID DMT InterpretationInterpretation/Recommendations: Molecular NAAT Tests for [...] COVID-19 testing the patient has had at [facility], including molecular NAAT testing (more commonly known as PCR testing and Rapid ID Now testing) and antibody testing. It does not take into account any testingthat a patient has had outside of the [facility] medical record. [facility] LABORATORY SERVICESCOVID BzzraxcSXSM-OuO-1 Rapid ID NOW (no units) ? ? Date ? Value ? 12/11/2020 ? Not Detected ? ? ? 11/16/2020 ? Not Detected ? ? ? 08/21/2020 ? Not Detected ? [facility] 2020-12-13 03:11:00 Test Item Value Reference Range Interpretation Comments POCT GLU (test code = 7322368073) 171 mg/dL 70-110 H Lab Interpretation (test code = Abnormal 77492-7) [facility] GLUCOSE (AUTOMATED)2020-12-13 00:00:00 Test Item Value Reference Range Interpretation Comments POCT GLU (test code = 9759446517) 118 mg/dL 70-110 H Lab Interpretation (test code = Abnormal 27831-2) [facility] GLUCOSE (AUTOMATED)2020-12-12 20:29:00 Test Item Value Reference Range Interpretation Comments POCT GLU (test code = 5501210548) 173 mg/dL 70-110 H Lab Interpretation (test code = Abnormal 56766-3) [facility]OM[facility] [id number] 19:56:17 1. ?Hepatic steatosis. However, limited evaluation [...] main portal veinwasevaluated with color Doppler imaging. Medical Coding Specialist images were obtainedfor the record. COMPARISON: [...] normal where visualized. SPLEEN:No images were obtained. [facility], Radiant Results Inft User - 12/12/2020 1:57 PM CSTEXAM: US ABDOMEN LIMITEDHISTORY: 70 years-old male with RUQ ultrasound to assess for common bileduct dilation .TECHNIQUE: Limited abdominal ultrasound focused on the liver, biliarysystem, pancreas, and spleen was performed. The main portal vein wasevaluated with color Doppler imaging. Medical Coding Specialist images wereobtainedfor the record.COMPARISON: Ultrasound abdomen 11/17/2028. [...] agree with the abovereport.[facility]2020-12-12 19:24:00 Test Item Value Reference Range Interpretation Comments POCT GLU (test code = 0280725996) 230 mg/dL 70-110 H Lab Interpretation (test code = Abnormal 06364-7) [facility] CHEST 1 [id number] 15:16:46 Low lung volumes with mild perihilar [...] reviewed this study and agree with theabove report.[facility]2020-12-12 14:34:00 Test Item Value Reference Range Interpretation Comments POCT GLU (test code = 6772362752) 225 mg/dL 70-110 H Lab Interpretation (test code = Abnormal 75938-2) [facility]Allen[facility]INE [id number] 13:28:00 Test Item Value Reference Range Interpretation Comments URINE CULTURE (test < 10,000 CFU/mL mixed code = 630-4) aerobic organisms - suggests endogenous microbial contamination [facility] (NA, K, CL, CO2, GLUCOSE, BUN, CREATININE, CA)2020-12-12 10:05:00 Test Item Value Reference Range Interpretation Comments NA (test code = 136 mmol/L 135-145 8532595069) K (test code = 3.5 mmol/L 3.5-5.0 9465679826) CL (test code = 100 mmol/L 98-108 6486138480) CO2 TOTAL (test code = 31 mmol/L 23-31 5421566911) AGAP (test code = 2-16 2401092055) BUN (test code = 7 mg/dL 7-23 1397599695) GLUCOSE (test code = 259 mg/dL 70-110 H 7761891246) CREATININE (test code = 0.63 mg/dL 0.60-1.25 3711538029) CALCIUM (test code = 8.5 mg/dL 8.6-10.6 L 6468073134) eGFR Calculation mL/min/1.73m2 (Non-) (test code = 3554934338) eGFR Calculation mL/min/1.73m2 () (test code = 6569098870) JAMES (test code = JAMES) Association of [...] tests). Lab Interpretation Abnormal (test code = 90397-4) [facility]AllenMagnesium [id number] 10:05:00 Test Item Value Reference Range Interpretation Comments MAGNESIUM (test code = 2992683740) 1.9 mg/dL 1.7-2.4 Lab Interpretation (test code = Normal 75791-9) General acute hospital with [id number] 09:48:00 Test Item Value Reference Range Interpretation Comments WBC (test code = See_Comment [Automated 9545-2) message] The sy stem which generated this result transmitted reference range : 4.20 - 10.70 10*3/?L. The reference range was not used to interpret this result as normal/abnormal . RBC (test code = See_Comment [Automated 478-6) message] The sy stem which generated this [...] RDW-SD (test code = 46.0 fL 38.5-51.6 59165-4) RDW-CV (test code = 16.1 % 12.1-15.4 H 788-0) PLT (test code = See_Comment H [Automated 777-3) message] The sy stem which generated this result transmitted reference range : 150 - 328 10*3/ ?L. The reference r torito was not used to interpret this result as normal/abnormal . MPV (test code = 8.6 fL 9.8-13.0 L 10726-0) NRBC/100 WBC (test See_Comment [Automat ed code = 3938326141) message] The system which generated this result transmitted reference range : 0.0 - 10.0 /100 WBCs. The refer ence range was not u sed to interpret th is result as normal/abnormal . NRBC x10^3 (test code <0.01 See_Comment [Auto mated = 6430680709) message] The s ystem which generated this result transmitted reference range : 10*3/?L. The reference range was not used to interpret this result as normal/abnormal . GRAN MAT (NEUT) % 70.2 % (test code = 770-8) IMM GRAN % (test code 0.30 % = 0716718459) LYMPH % (test code = 18.8 % 736-9) MONO % (test code = 5.0 % 5905-5) EOS % (test code = 5.2 % 713-8) BASO % (test code = 0.5 % 706-2) GRAN MAT x10^3(ANC) 6.05 10*3/uL 1.99-6.95 (test code = 0553849880) IMM GRAN x10^3 (test 0.03 10*3/uL 0.00-0.06 code = 4430153311) LYMPH x10^3 (test code 1.62 10*3/uL 1.09-3.23 = 731-0) MONO x10^3 (test code 0.43 10*3/uL 0.36-1.02 = 742-7) EOS x10^3 (test code = 0.45 10*3/uL 0.06-0.53 711-2) BASO x10^3 (test code 0.04 10*3/uL 0.01-0.09 = 704-7) Lab Interpretation Abnormal (test code = 29526-2) [facility]2020-12-12 03:42:00 Test Item Value Reference Range Interpretation Comments POCT GLU (test code = 196 mg/dL 70-110 H Notifi ed Provider 5532169229) Lab Interpretation (test Abnormal code = 37821-7) [facility]OLATE2021-[facility]-02 02:24:00 Test Item Value Reference Range Interpretation Comments FOLATE SER (test code = 0661030062) 5.8 ng/mL 3.0-20.0 Lab Interpretation (test code = Normal 88071-2) [facility]AllenVITAMIN B12, [id number] 00:55:00 Test Item Value Reference Range Interpretation Comments VIT B12 (test code = 844 pg/mL 240-930 6723905124) JAMES (test code = JAMES) Biotin has been reported to cause a positive bias, interpret results relative to patient's use of biotin. Lab Interpretation (test Normal code = 20073-7) [facility] GLUCOSE (AUTOMATED)2020-12-12 00:14:00 Test Item Value Reference Range Interpretation Comments POCT GLU (test code = 9805010390) 164 mg/dL 70-110 H Lab Interpretation (test code = Abnormal 09760-3) [facility]AllenCREATINE [id number] 23:42:00 Test Item Value Reference Range Interpretation Comments CK (test code = 8032867918) <20 33-194 L Lab Interpretation (test code = Abnormal 51181-8) [facility]AllenTHYROID STIMULATING [id number] 23:17:00 Test Item Value Reference Range Interpretation Comments TSH (test code = See_Comment Biotin has been 9418523694) reported to cau se a negative bias, interpret resul ts relative to johnny bills's use of biotin. [Automated mess age] The system [employer] generated this result transmitted ref erence range: 0.45 - 4 .70 mIU/L. The refe rence range was not u sed to interpret this result as normal/abnor mal. Lab Interpretation (test Normal code = 72469-7) [facility] HIPS 3 VW [id number] 21:41:53No appreciable fracture lines. RL: 6200 ICAL [...] No osseous erosions.IMPRESSIONNo appreciable fracture lines.RL: 6200 [facility]PROCALCITONIN2021-[facility]-01 20:00:00 Test Item Value Reference Range Interpretation Comments Procalcitonin (test 0.13 ng/mL <0.07 H code = 3612232530) JAMES (test code = JAMES) INTERPRETATION OF [...] For further information please refer to:[email or web address] Lab Interpretation Abnormal (test code = 23895-4) [facility]2020-12-11 19:07:00 Test Item Value Reference Range Interpretation Comments POCT GLU (test code = 2832046301) 274 mg/dL 70-110 H Lab Interpretation (test code = Abnormal 71849-3) [facility]MAGNESIUM2021-03-01 18:31:00 Test Item Value Reference Range Interpretation Comments MAGNESIUM (test code = 0331190781) 1.9 mg/dL 1.7-2.4 Lab Interpretation (test code = Normal 97790-3) [facility]AllenFERRITIN [id number] 18:31:00 Test Item Value Reference Range Interpretation Comments FERRITIN (test code = 178.0 ng/mL 18.0-464.0 4922235231) JAMES (test code = JAMES) Biotin has been reported to cause a negative bias, interpret results relative to patient's use of biotin. Lab Interpretation (test Normal code = 65258-2) [facility] HEAD WO [id number] 14:36:47 No acute intracranial abnormality. Dilated ventricles [...] Comments APPEARANCE (test code = Clear Clear 2126808072) COLOR (test code = Yellow Yellow 0764083194) PH (test code = 4.8-8.0 0813172302) SP GRAVITY (test code = 1.003-1.030 5946966011) GLU U QUAL (test code = 500 mg/dL Normal A 5666702075) BLOOD (test code = Negative Negative 2234035776) KETONES (test code = 5 mg/dL Negative A 9181142991) PROTEIN (test code = Negative Negative 2887-8) UROBILIN (test code = Normal Normal 0226069039) BILIRUBIN (test code = Negative Negative 0824017054) NITRITE (test code = Negative Negative 1165410324) LEUK RYAN (test code = Negative Negative 2689956494) RBC/HPF (test code = See_Comment [Autom ated message] 2602518697) The system [employer] generated this result transmit ronan reference range : 0 - 3 HPF. The refe rence range was not u sed to interpret th is result as normal/abnormal . WBC/HPF (test code = See_Comment [Autom ated message] 0722042732) The system [employer] generated this result transmit ronan reference range : 0 - 5 HPF. The refe rence range was not u sed to interpret th is result as normal/abnormal . BACTERIA (test code = Negative Negative 4551380485) MUCOUS (test code = Slight Negative LPF A 0548131506) SQ EPITH (test code = HPF 6264160594) Lab Interpretation (test Abnormal code = 62521-4) [facility] (ID NOW RAPID TESTING)2020-12-11 13:10:00 Test Item Value Reference Range Interpretation Comments SARS-CoV-2 Rapid ID NOW Not Detected Not Detected (test code = 63846-3) JAMES (test code = JAMES) ID NOW COVID-19 Assay is an isothermal nucleic acid amplification test intended for the qualitative detection of nucleic acid from SARS-CoV-2 viral RNA in nasopharyngeal (BASKET GRADER) specimens. It is used under Emergency Use [...] indicated. Lab Interpretation Normal (test code = 73247-9) [facility]. METABOLIC PANEL (64456)2020-12-11 12:29:00 Test Item Value Reference Range Interpretation Comments NA (test code = 136 mmol/L 135-145 3187227005) K (test code = 3.5 mmol/L 3.5-5.0 4673128192) CL (test code = 95 mmol/L 98-108 L 4022282751) CO2 TOTAL (test code = 35 mmol/L 23-31 H 9219829759) AGAP (test code = 2-16 3429145852) BUN (test code = 9 mg/dL 7-23 2173960554) GLUCOSE (test code = 329 mg/dL 70-110 H 9803314593) CREATININE (test code = 0.72 mg/dL 0.60-1.25 1412201899) TOTAL BILI (test code = 0.6 mg/dL 0.1-1.0 0687523374) CALCIUM (test code = 9.0 mg/dL 8.6-10.6 9169182163) T PROTEIN (test code = 6.8 g/dL 6.3-8.2 0643058320) ALBUMIN (test code = 3.8 g/dL 3.5-5.0 1035863050) ALK PHOS (test code = 288 U/L 34-122 H 9963129564) ALTv (test code = 46 U/L 5-50 1742-6) AST(SGOT) (test code = 38 U/L 13-40 7186500649) eGFR Calculation mL/min/1.73m2 (Non-) (test code = 2876118560) eGFR Calculation mL/min/1.73m2 () (test code = 7399485156) JAMES (test code = JAMES) Association of [...] tests). Lab Interpretation Abnormal (test code = 12338-7) [facility]Allen[facility] Acid Whole [id number] 12:23:00 Test Item Value Reference Range Interpretation Comments LACTIC ACID (test code = 2.09 mmol/L 0.50-2.20 7961796193) Lab Interpretation (test code = Normal 69391-4) General acute hospital WITH [id number] 12:17:00 Test Item Value Reference Range Interpretation Comments WBC (test code = See_Comment H [Automated 5590-2) message] The sy stem which generated this result transmitted reference range : 4.20 - 10.70 10*3/?L. The reference range was not used to interpret this result as normal/abnormal . RBC (test code = See_Comment [Automated 949-8) message] The sy stem which generated this [...] RDW-SD (test code = 44.9 fL 38.5-51.6 23987-3) RDW-CV (test code = 15.9 % 12.1-15.4 H 788-0) PLT (test code = See_Comment H [Automated 777-3) message] The sy stem which generated this result transmitted reference range : 150 - 328 10*3/ ?L. The reference r torito was not used to interpret this result as normal/abnormal . MPV (test code = 8.3 fL 9.8-13.0 L 79914-9) NRBC/100 WBC (test See_Comment [Automat ed code = 0032525409) message] The system which generated this result transmitted reference range : 0.0 - 10.0 /100 WBCs. The refer ence range was not u sed to interpret th is result as normal/abnormal . NRBC x10^3 (test code <0.01 See_Comment [Auto mated = 1274816897) message] The s ystem which generated this result transmitted reference range : 10*3/?L. The reference range was not used to interpret this result as normal/abnormal . GRAN MAT (NEUT) % 77.9 % (test code = 770-8) IMM GRAN % (test code 0.50 % = 5720860532) LYMPH % (test code = 12.2 % 736-9) MONO % (test code = 5.2 % 5905-5) EOS % (test code = 3.7 % 713-8) BASO % (test code = 0.5 % 706-2) GRAN MAT x10^3(ANC) 9.57 10*3/uL 1.99-6.95 H (test code = 7768983791) IMM GRAN x10^3 (test 0.06 10*3/uL 0.00-0.06 code = 7133869823) LYMPH x10^3 (test code 1.50 10*3/uL 1.09-3.23 = 731-0) MONO x10^3 (test code 0.64 10*3/uL 0.36-1.02 = 742-7) EOS x10^3 (test code = 0.46 10*3/uL 0.06-0.53 711-2) BASO x10^3 (test code 0.06 10*3/uL 0.01-0.09 = 704-7) Lab Interpretation Abnormal (test code = 70519-8) [facility] COVID [id number] 18:43:00COVID DMT InterpretationInterpretation/Recommendations: Molecular NAAT Test Results [...] a nasopharyngeal sample, there is approximately a axb-nt-cvwkb chance that the patient was infected and [...] based upon aggregate data pooled from the [facility] medical recordincluding both current and prior COVID-19 related testing results for the following tests offered atour institution:A. Tests for the Identification of SARS-CoV-2 RNA:SARS-CoV-2 PCR assays including [place] Aptima, [place] Fusion, [employer] RealTime, and [employer] Xpert Xpress. SARS-CoV-2 Rapid ID NOW by the ID NOW assay. ? B. Tests for the Identification of SARS-CoV-2 Antibodies: Chemiluminescent immunoassays including Access SARS-CoV-2 IgM (DXI 600), VITROS Eqnc-LGDS-BoN-2 IgG (Vitros 5600 and Vitros 3600), and Barrett SARS-CoV-2 IgG (NUT CHOPPER I System). These interpretation comments assume that only the above testing was utilized and that the approved acceptable specimen type(s) were used for a given test. These interpretations are autopopulated into [employer] based on computerized algorithms matching an interpretation code number to the patient's set of test results. While a clinical pathologist evaluates the combinations for clinical accuracy, clinical correlation is recommended as it may not take into account very remote prior testing. Furthermore, it does not consider testing a patient may have had outside of the [facility] system. Additionally, it should be noted that the computerized algorithm treats the results for PCR testing and Rapid ID NOW testing (also PCR) synonymously, and thus, refers to both testing methodologies as PCR tests. Given that the sensitivity of [facility]'s Rapid ID NOW testing platform is analogous [...] pathogen panel may be beneficialin this setting. [facility] LABORATORY SERVICESCOVID RyoemfoOASP-IqN-6 Rapid ID NOW (no units) ? ? Date ? Value ? 08/21/2020 ? Not Detected ? [facility]2020-08-23 18:25:00 Test Item Value Reference Range Interpretation Comments POCT GLU (test code = 0656458744) 297 mg/dL 70-110 H Lab Interpretation (test code = Abnormal 52975-0) [facility] GLUCOSE (AUTOMATED)2020-08-23 14:25:00 Test Item Value Reference Range Interpretation Comments POCT GLU (test code = 0746829003) 181 mg/dL 70-110 H Lab Interpretation (test code = Abnormal 73638-7) [facility] Metabolic Panel (NA, K, CL, CO2, GLUCOSE, BUN, CREATININE, CA)2020-08-23 11:45:00 Test Item Value Reference Range Interpretation Comments NA (test code = 132 mmol/L 135-145 L 0290576711) K (test code = 4.0 mmol/L 3.5-5 2040085102) CL (test code = 96 mmol/L 98-108 L 2346966315) CO2 TOTAL (test code = 33 mmol/L 23-31 H 4290413401) AGAP (test code = 2-16 5896632381) BUN (test code = 9 mg/dL 7-23 2425467071) GLUCOSE (test code = 176 mg/dL 70-110 H 1899670245) CREATININE (test code = 0.66 mg/dL 0.6-1.25 1984187648) CALCIUM (test code = 8.5 mg/dL 8.6-10.6 L 5771686650) eGFR Calculation mL/min/1.73m2 (Non-) (test code = 9221994248) eGFR Calculation mL/min/1.73m2 () (test code = 8472866087) JAMES (test code = JAMES) Association of [...] tests). Lab Interpretation Abnormal (test code = 81095-0) [facility]AllenMagnesium [id number] 11:45:00 Test Item Value Reference Range Interpretation Comments MAGNESIUM (test code = 0542339977) 2.0 mg/dL 1.7-2.4 Lab Interpretation (test code = Normal 00188-4) General acute hospital with Wqrtndbywbot3083-72-50 11:38:00 Test Item Value Reference Range Interpretation [...] RDW-SD (test code = 41.8 fL 38.5-51.6 53268-2) RDW-CV (test code = 14.3 % 12.1-15.4 788-0) PLT (test code = See_Comment H [Automated 777-3) message] The sy stem which generated this result transmitted reference range : 150 - 328 10*3/ ?L. The reference r torito was not used to interpret this result as normal/abnormal . MPV (test code = 8.0 fL 9.8-13 L 99270-7) NRBC/100 WBC (test See_Comment [Automat ed code = 2557274374) message] The system which generated this result transmitted reference range : 0.0 - 10.0 /100 WBCs. The refer ence range was not u sed to interpret th is result as normal/abnormal . NRBC x10^3 (test code <0.01 See_Comment [Auto mated = 3601806623) message] The s ystem which generated this result transmitted reference range : 10*3/?L. The reference range was not used to interpret this result as normal/abnormal . GRAN MAT (NEUT) % 61.5 % (test code = 770-8) IMM GRAN % (test code 2.00 % = 6114113815) LYMPH % (test code = 25.5 % 736-9) MONO % (test code = 6.3 % 5905-5) EOS % (test code = 3.7 % 713-8) BASO % (test code = 1.0 % 706-2) GRAN MAT x10^3(ANC) 5.29 10*3/uL 1.99-6.95 (test code = 7919699967) IMM GRAN x10^3 (test 0.17 10*3/uL 0-0.06 H code = 1114624490) LYMPH x10^3 (test code 2.19 10*3/uL 1.09-3.23 = 731-0) MONO x10^3 (test code 0.54 10*3/uL 0.36-1.02 = 742-7) EOS x10^3 (test code = 0.32 10*3/uL 0.06-0.53 711-2) BASO x10^3 (test code 0.09 10*3/uL 0.01-0.09 = 704-7) Lab Interpretation Abnormal (test code = 53566-8) [facility] GLUCOSE (AUTOMATED)2020-08-23 10:22:00 Test Item Value Reference Range Interpretation Comments POCT GLU (test code = 7118530419) 164 mg/dL 70-110 H Lab Interpretation (test code = Abnormal 40927-1) [facility] GLUCOSE (AUTOMATED)2020-08-23 05:56:00 Test Item Value Reference Range Interpretation Comments POCT GLU (test code = 8214963057) 242 mg/dL 70-110 H Lab Interpretation (test code = Abnormal 09653-7) [facility] GLUCOSE (AUTOMATED)2020-08-23 03:02:00 Test Item Value Reference Range Interpretation Comments POCT GLU (test code = 7949570479) 210 mg/dL 70-110 H Lab Interpretation (test code = Abnormal 82199-4) [facility] GLUCOSE (AUTOMATED)2020-08-22 23:40:00 Test Item Value Reference Range Interpretation Comments POCT GLU (test code = 0283942111) 267 mg/dL 70-110 H Lab Interpretation (test code = Abnormal 65201-5) [facility] GLUCOSE (AUTOMATED)2020-08-22 19:08:00 Test Item Value Reference Range Interpretation Comments POCT GLU (test code = 0613154983) 191 mg/dL 70-110 H Lab Interpretation (test code = Abnormal 23509-5) [facility] GLUCOSE (AUTOMATED)2020-08-22 13:50:00 Test Item Value Reference Range Interpretation Comments POCT GLU (test code = 7133109347) 174 mg/dL 70-110 H Lab Interpretation (test code = Abnormal 11854-5) [facility] [id number] 12:59:00 Test Item Value Reference Range Interpretation Comments URINE CULTURE (test No aerobic growth (< code = 630-4) 1000 CFU/mL) [facility]AllenCBC with Sgyucvpubuhu9498-66-40 11:28:00 Test Item Value Reference Range Interpretation [...] RDW-SD (test code = 42.5 fL 38.5-51.6 92975-2) RDW-CV (test code = 14.5 % 12.1-15.4 788-0) PLT (test code = See_Comment H [Automated 777-3) message] The sy stem which generated this result transmitted reference range : 150 - 328 10*3/ ?L. The reference r torito was not used to interpret this result as normal/abnormal . MPV (test code = 8.0 fL 9.8-13 L 99422-1) NRBC/100 WBC (test See_Comment [Automat ed code = 3719818762) message] The system which generated this result transmitted reference range : 0.0 - 10.0 /100 WBCs. The refer ence range was not u sed to interpret th is result as normal/abnormal . NRBC x10^3 (test code <0.01 See_Comment [Auto mated = 1812213099) message] The s ystem which generated this result transmitted reference range : 10*3/?L. The reference range was not used to interpret this result as normal/abnormal . GRAN MAT (NEUT) % 69.1 % (test code = 770-8) IMM GRAN % (test code 2.20 % = 7851997000) LYMPH % (test code = 20.9 % 736-9) MONO % (test code = 5.8 % 5905-5) EOS % (test code = 1.0 % 713-8) BASO % (test code = 1.0 % 706-2) GRAN MAT x10^3(ANC) 6.51 10*3/uL 1.99-6.95 (test code = 2089243060) IMM GRAN x10^3 (test 0.21 10*3/uL 0-0.06 H code = 7296987314) LYMPH x10^3 (test code 1.97 10*3/uL 1.09-3.23 = 731-0) MONO x10^3 (test code 0.55 10*3/uL 0.36-1.02 = 742-7) EOS x10^3 (test code = 0.09 10*3/uL 0.06-0.53 711-2) BASO x10^3 (test code 0.09 10*3/uL 0.01-0.09 = 704-7) BASO STIPPLING (test Present A code = 703-9) BANDS (test code = Increased A 8839971839) TOXIC CHANGES (test Present A code = 803-7) Lab Interpretation Abnormal (test code = 08520-7) [facility] Metabolic Panel (NA, K, CL, CO2, GLUCOSE, BUN, CREATININE, CA)2020-08-22 11:12:00 Test Item Value Reference Range Interpretation Comments NA (test code = 135 mmol/L 135-145 7459361988) K (test code = 3.6 mmol/L 3.5-5 9599515069) CL (test code = 99 mmol/L 98-108 1304954776) CO2 TOTAL (test code = 31 mmol/L 23-31 2502198367) AGAP (test code = 2-16 4828130195) BUN (test code = 9 mg/dL 7-23 7935431274) GLUCOSE (test code = 198 mg/dL 70-110 H 1843230320) CREATININE (test code = 0.72 mg/dL 0.6-1.25 0422496468) CALCIUM (test code = 8.3 mg/dL 8.6-10.6 L 9611469770) eGFR Calculation mL/min/1.73m2 (Non-) (test code = 7257045146) eGFR Calculation mL/min/1.73m2 () (test code = 8735760333) JAMES (test code = JAMES) Association of [...] tests). Lab Interpretation Abnormal (test code = 85838-5) [facility]Allen[facility] Zzatw0632-76-49 11:12:00 Test Item Value Reference Range Interpretation Comments MAGNESIUM (test code = 5738890622) 2.0 mg/dL 1.7-2.4 Lab Interpretation (test code = Normal 02116-3) [facility]Allen[facility]id Panel (Total Cholesterol, Triglycerides, HDL) - [id number] 11:12:00 Test Item Value Reference Range Interpretation Comments CHOL (test code = 155 mg/dL 120-200 0317317859) HDL (test code = 42 mg/dL >40 0942028822) HDLC RATIO (test code = See_Comment [Au tomated message] 7774041702) The system [employer] generated this result transmit ronan reference range : <=5.0. The refe rence range was not u sed to interpret th is result as normal/abnormal . TRIG (test code = 186 mg/dL 30-170 H 9410118239) LDL CHOL (test code = 76 mg/dL See_Comment [Auto mated message] 06076-9) The system [employer] generated this result transmit ronan reference range : <=160. The refe rence range was not u sed to interpret th is result as normal/abnormal . VLDL (test code = 37 mg/dL 5-60 1695800889) Lab Interpretation (test Abnormal code = 53926-2) [facility]AllenHEPATIC FUNCTION PANEL (73769) (ALB,T.PRO,BILI T,BU/BC,ALT,AST,ALK PHOS)2020-08-22 11:12:00 Test Item Value Reference Range Interpretation Comments TOTAL BILI (test code = 0259119388) 0.6 mg/dL 0.1-1.1 BILI UNCON (test code = 8529484663) 0.2 mg/dL 0.1-1.1 BILI CONJ (test code = 9552175406) 0.0 mg/dL 0-0.3 T PROTEIN (test code = 1913917149) 6.0 g/dL 6.3-8.2 L ALBUMIN (test code = 3743265470) 2.8 g/dL 3.5-5 L ALK PHOS (test code = 6116256840) 222 U/L 34-122 H ALTv (test code = 1742-6) 27 U/L 5-50 AST(SGOT) (test code = 6925922521) 30 U/L 13-40 Lab Interpretation (test code = Abnormal 39893-8) [facility] GLUCOSE (AUTOMATED)2020-08-22 10:11:00 Test Item Value Reference Range Interpretation Comments POCT GLU (test code = 2282698658) 196 mg/dL 70-110 H Lab Interpretation (test code = Abnormal 45186-8) [facility] GLUCOSE (AUTOMATED)2020-08-22 07:15:00 Test Item Value Reference Range Interpretation Comments POCT GLU (test code = 3211442168) 183 mg/dL 70-110 H Lab Interpretation (test code = Abnormal 33759-5) [facility] GLUCOSE (AUTOMATED)2020-08-22 02:30:00 Test Item Value Reference Range Interpretation Comments POCT GLU (test code = 1750364667) 295 mg/dL 70-110 H Lab Interpretation (test code = Abnormal 39838-2) [facility] GLUCOSE (AUTOMATED)2020-08-21 23:46:00 Test Item Value Reference Range Interpretation Comments POCT GLU (test code = 1813137784) 258 mg/dL 70-110 H Lab Interpretation (test code = Abnormal 00597-2) [facility]AllenC-REACTIVE [id number] 18:50:00 Test Item Value Reference Range Interpretation Comments CRP (test code = 0569250306) 15.5 mg/dL <0.8 H Lab Interpretation (test code = Abnormal 54712-5) [facility]2020-08-21 18:21:00 Test Item Value Reference Range Interpretation Comments POCT GLU (test code = 2009117731) 297 mg/dL 70-110 H Lab Interpretation (test code = Abnormal 95743-7) [facility]AllenETHANOL2020-11-09 16:24:00 Test Item Value Reference Range Interpretation Comments ALCOHOL (test code = <10 mg/dL 3908934134) JAMES (test code = Toxic Greater than or JAMES) equal to 80 mg/dL. NOTE: Whole blood values are approximately 10% to 15% lower than serum and plasma. [facility]CLC ONLY - URINE DRUG (IMMUNOASSAY) - 4 ER [id number] 15:36:00 Test Item Value Reference Range Interpretation Comments AMPHET (test code = Negative Negative 3816329873) Cocaine Metabolite (test Negative Negative code = 8681888754) OPIATES (test code = Presumptive Positive Negative A 9592476059) THC (test code = Negative Negative 0397252654) JAMES (test code = JAMES) Urine Drug Cutoff Ranges Amphetamine: ? 1,000 ng/mLCocaine: ? 150 ng/mLOpiates: ? 300 ng/mLCannabinoids: ?50 ng/mL The results are to be used only for medical (i.e., treatment) purposes. Unconfirmed screening results must not be used for non-medical purposes (e.g., employment testing, legal testing). Lab Interpretation (test Abnormal code = 83158-6) [facility] ONLY - SYPHILIS [id number] 15:04:00 Test Item Value Reference Range Interpretation Comments Syphilis IgG/IgM (test Non-reactive Non-reactive code = 65433-3) JAMES (test code = JAMES) Non-reactive - No serologic evidence of T. pallidum infection. Cannot exclude incubating or early syphilis. Submit a second specimen in 2-4 weeks if syphilis is clinically suspected. Equivocal - Further testing to follow. Reactive - Further testing to follow. Lab Interpretation (test Normal code = 40471-0) [facility]AllenUrinalysis2020-11-09 14:52:00 Test Item Value Reference Range Interpretation Comments APPEARANCE (test code = Clear Clear 9958249527) COLOR (test code = Yellow Yellow 1821735685) PH (test code = 4.8-8.0 0086278470) SP GRAVITY (test code = 1.003-1.030 3095847616) GLU U QUAL (test code = 500 mg/dL Normal A 8577264818) BLOOD (test code = Negative Negative 0870096521) KETONES (test code = 20 mg/dL Negative A 6489919138) PROTEIN (test code = Negative Negative 2887-8) UROBILIN (test code = Normal Normal 9282802519) BILIRUBIN (test code = Negative Negative 4396179842) NITRITE (test code = Negative Negative 4064674776) LEUK RYAN (test code = Negative Negative 2125874097) RBC/HPF (test code = <1 See_Comment [Autom ated message] 1792129390) The system [employer] generated this result transmit ronan reference range : 0 - 3 HPF. The refe rence range was not u sed to interpret th is result as normal/abnormal . WBC/HPF (test code = See_Comment [Autom ated message] 0408646096) The system [employer] generated this result transmit ronan reference range : 0 - 5 HPF. The refe rence range was not u sed to interpret th is result as normal/abnormal . BACTERIA (test code = Negative Negative 7204768088) MUCOUS (test code = Slight Negative LPF A 8939849778) Lab Interpretation (test Abnormal code = 68343-6) [facility]AllenACTIVATED PARTIAL THRMPLAS [id number] 13:45:00 Test Item Value Reference Range Interpretation Comments APTT Patient (test code = See_Comment [ Automated message] 3173-2) The system [employer] generated this result transmitted ref erence range: 26 - 36 Seconds. The re ference range was not u sed to interpret this result as normal/abnor mal. Lab Interpretation (test Normal code = 04768-5) [facility]2020-08-21 13:45:00 Test Item Value Reference Range Interpretation Comments POCT GLU (test code = 0067117863) 246 mg/dL 70-110 H Lab Interpretation (test code = Abnormal 55391-1) [facility]AllenHIV 1/2 AG-AB WITH [id number] 12:32:00 Test Item Value Reference Range Interpretation Comments HIV Negative Negative Semi-quantitative (test code = 40479-4) JAMES (test code = Non-reactive for HIV-1 JAMES) antigen and HIV-1/HIV-2 antibodies. ?No laboratory evidence of HIV infection. ?Repeat in 2-4 weeks if acute HIV infection is suspected. [facility]AllenCBC WITH [id number] 12:18:00 Test Item Value Reference Range Interpretation [...] RDW-SD (test code = 44.4 fL 38.5-51.6 42753-1) RDW-CV (test code = 14.5 % 12.1-15.4 788-0) PLT (test code = See_Comment H [Automated 777-3) message] The sy stem which generated this result transmitted reference range : 150 - 328 10*3/ ?L. The reference r torito was not used to interpret this result as normal/abnormal . MPV (test code = 8.5 fL 9.8-13 L 66182-7) NRBC/100 WBC (test See_Comment [Automat ed code = 1502242670) message] The system which generated this result transmitted reference range : 0.0 - 10.0 /100 WBCs. The refer ence range was not u sed to interpret th is result as normal/abnormal . NRBC x10^3 (test code <0.01 See_Comment [Auto mated = 6192107621) message] The s ystem which generated this result transmitted reference range : 10*3/?L. The reference range was not used to interpret this result as normal/abnormal . GRAN MAT (NEUT) % 90.4 % (test code = 770-8) IMM GRAN % (test code 1.30 % = 3197947092) LYMPH % (test code = 7.1 % 736-9) MONO % (test code = 0.5 % 5905-5) EOS % (test code = 0.1 % 713-8) BASO % (test code = 0.6 % 706-2) GRAN MAT x10^3(ANC) 7.74 10*3/uL 1.99-6.95 H (test code = 9027834668) IMM GRAN x10^3 (test 0.11 10*3/uL 0-0.06 H code = 6542747574) LYMPH x10^3 (test code 0.61 10*3/uL 1.09-3.23 L = 731-0) MONO x10^3 (test code 0.04 10*3/uL 0.36-1.02 L = 742-7) EOS x10^3 (test code = <0.03 0.06-0.53 L 711-2) BASO x10^3 (test code 0.05 10*3/uL 0.01-0.09 = 704-7) POLYCHROMASIA (test 2+ See_Comment [Automa ronan code = 55510-8) message] The system which generated this result transmitted reference range : 2+. The referen ce range was not u sed to interpret th is result as normal/abnormal . BANDS (test code = Increased A 1068322711) Lab Interpretation Abnormal (test code = 38399-7) [facility]AllenPROCALCITONIN2020-11-09 11:48:00 Test Item Value Reference Range Interpretation Comments Procalcitonin (test 0.36 ng/mL <0.07 H code = 4550899843) JAMES (test code = JAMES) INTERPRETATION OF [...] For further information please refer to:[email or web address] Lab Interpretation Abnormal (test code = 03201-3) [facility] McAllenLACOATE [id number] 10:53:00 Test Item Value Reference Range Interpretation Comments LDH (test code = 4200817100) 351 U/L 300-600 Lab Interpretation (test code = Normal 28434-8) [facility] McAllenSEDIMENTATION [id number] 10:07:00 Test Item Value Reference Range Interpretation Comments ESR (test code = See_Comment H [Automated message] 8396373761) The system [employer] generated this result transmitted ref erence range: 0 - 10 m m/HR. The reference r torito was not used to interpret this result as normal/abnor mal. Lab Interpretation (test Abnormal code = 81600-4) [facility]2020-08-21 09:45:00 Test Item Value Reference Range Interpretation Comments POCT GLU (test code = 6573594398) 287 mg/dL 70-110 H Lab Interpretation (test code = Abnormal 67316-2) [facility]AllenGlycosylated Hemoglobin (A1C)2020-08-21 09:29:00 Test Item Value Reference Range Interpretation Comments HGB A1C (test code = 4548-4) 9.8 % 4-6 H Lab Interpretation (test code = Abnormal 02120-5) [facility]AllenCOVID[facility] (ID NOW RAPID TESTING)2020-08-21 09:13:00 Test Item Value Reference Range Interpretation Comments SARS-CoV-2 Rapid ID NOW Not Detected Not Detected (test code = 43769-2) JAMES (test code = JAMES) ID NOW COVID-19 Assay is an isothermal nucleic acid amplification test intended for the qualitative detection of nucleic acid from SARS-CoV-2 viral RNA in nasopharyngeal (BASKET GRADER) specimens. It is used under Emergency Use [...] indicated. Lab Interpretation Normal (test code = 31993-2) [facility]AllenProthrombin Time / [id number] 08:59:00 Test Item Value Reference Range Interpretation Comments PROTIME PATIENT (test See_Comment H [Auto mated message] code = 5964-2) The system [employer] generated this result transmitted ref erence range: 10.1 - 1 2.6 Seconds. The reference range was not used to int erpret this result as normal/abnormal . INR (test code = 6301-6) Nor mal INR <1.1; Warfarin Therap eutic range 2.0 to 3. 0 or 2.5 to 3.5, dep ending upon the indica tions. Lab Interpretation (test Abnormal code = 47329-5) [facility]00 Test Item Value Reference Range Interpretation Comments APTT Patient (test code = See_Comment [ Automated message] 3173-2) The system [employer] generated this result transmitted ref erence range: 26 - 36 Seconds. The re ference range was not u sed to interpret this result as normal/abnor mal. Lab Interpretation (test Normal code = 47058-1) [facility] (NA, K, CL, CO2, GLUCOSE, BUN, CREATININE, CA)2020-08-21 08:52:00 Test Item Value Reference Range Interpretation Comments NA (test code = 136 mmol/L 135-145 3280464041) K (test code = 4.3 mmol/L 3.5-5 3365853969) CL (test code = 104 mmol/L 98-108 0336418819) CO2 TOTAL (test code = 24 mmol/L 23-31 9455593958) AGAP (test code = 2-16 3372048644) BUN (test code = 8 mg/dL 7-23 2266201221) GLUCOSE (test code = 308 mg/dL 70-110 H 4220175053) CREATININE (test code = 0.72 mg/dL 0.6-1.25 1933762161) CALCIUM (test code = 7.8 mg/dL 8.6-10.6 L 2296301531) eGFR Calculation mL/min/1.73m2 (Non-) (test code = 5479010947) eGFR Calculation mL/min/1.73m2 () (test code = 2902143372) JAMES (test code = JAMES) Association of [...] tests). Lab Interpretation Abnormal (test code = 45818-0) [facility] (54846) (ALB,T.PRO,BILI T,BU/BC,ALT,AST,ALK PHOS)2020-08-21 08:52:00 Test Item Value Reference Range Interpretation Comments TOTAL BILI (test code = 3277072365) 0.8 mg/dL 0.1-1.1 BILI UNCON (test code = 3516849907) 0.3 mg/dL 0.1-1.1 BILI CONJ (test code = 3500435900) 0.0 mg/dL 0-0.3 T PROTEIN (test code = 9793701955) 5.7 g/dL 6.3-8.2 L ALBUMIN (test code = 5425232829) 2.7 g/dL 3.5-5 L ALK PHOS (test code = 9229694843) 245 U/L 34-122 H ALTv (test code = 1742-6) 37 U/L 5-50 AST(SGOT) (test code = 8066628419) 43 U/L 13-40 H Lab Interpretation (test code = Abnormal 78766-6) [facility]
[2022-08-04] MEDS ORDERED: KETOROLAC 30 MG/ML INJ ONE (07:15)
[2022-08-04] MEDS ORDERED: DIAZEPAM 5 MG TABLET ONE (07:15)
--- NOTE | 2022-08-04 07:19 | ER ---
Nurse's Notes [facility] Name: iKel Ngo Age: 71 yrs Sex: Male : 1950 Arrival Date: 08/04/2022 Time: 06:39 Bed 15 Private MD: Diagnosis: Pain in right hip;Other chronic pain-right hip Presentation: 08/04 06:40 Chief complaint: EMS states: Ran out of pain medicine last Friday night, c/o R groin ke1 pain. Coronavirus screen: Vaccine status:. Ebola Screen: No symptoms or risks identified at this time. Initial Sepsis Screen: Does the patient meet any 2 criteria? No. Patient's initial sepsis screen is negative. Does the patient have a suspected source of infection? No. Patient's initial sepsis screen is negative. Risk Assessment: Do you want to hurt yourself or someone else? Patient reports no desire to harm self or others. Onset of symptoms was August 03, 2022. 06:40 Method Of Arrival: EMS ke1 06:40 Acuity: JOZEF 3 ke1 Triage Assessment: 06:45 General: Appears in no apparent distress. comfortable, Behavior is appropriate for age. ke1 Pain: Complains of pain in R groin. Neuro: Villalobos Agitation-Sedation Scale (RASS): 0 - Alert and Calm Level of Consciousness is awake, alert, Oriented to person, place, time, situation. Respiratory: Airway is patent Respiratory effort is even, unlabored, Respiratory pattern is regular, symmetrical. Historical: - Allergies: 06:45 Demerol; ke1 06:45 metformin; ke1 06:45 Morphine; ke1 - PMHx: 06:45 Atrial fibrillation; chronic back pain; Chronic right leg pain; neuropathy; ke1 - PSHx: 06:45 back sx; PANCREAS SX; R. Ankle SX; ke1 - Immunization history:: Client reports receiving the 2nd dose of the Covid vaccine. - Social history:: Smoking status: Patient denies any tobacco usage or history of. - Family history:: not pertinent. Screenin:46 Abuse screen: Denies threats or abuse. Nutritional screening: No deficits noted. ke1 Tuberculosis screening: No symptoms or risk factors identified. Fall Risk None identified. Assessment: 07:20 General: Appears in no apparent distress. comfortable, Behavior is calm, cooperative, ko1 appropriate for age. Pain: Complains of pain in left subscapular area, right subscapular area, lumbar area, left low back, left mid back, right mid back and right low back and right inner thigh and right leg and right upper thigh. Neuro: No deficits noted. Cardiovascular: No deficits noted. Respiratory: No deficits noted. GI: No deficits noted. : No deficits noted. EENT: No deficits noted. Derm: Rash noted that is itchy, chronic according to patient. Musculoskeletal: No deficits noted. Vital Signs: 06:40 BP 110 / 62; Pulse 85; Resp 17; Temp 97.8(O); Pulse Ox 97% on R/A; Weight 83.91 kg; ke1 Height 5 ft. 11 in. (180.34 cm); Pain 10/10; 07:20 BP 113 / 66; Pulse 88; Resp 16; Pulse Ox 98% ; ko1 07:42 BP 125 / 76; Pulse Ox 97% ; ko1 06:40 Body Mass Index 25.80 (83.91 kg, 180.34 cm) ke1 ED Course: 06:39 Patient arrived in ED. ds4 06:40 Brandon Kan, RN is Primary Nurse. ke1 06:45 Triage completed. ke1 06:45 Stu Banerjee MD is Attending Physician. chetan 06:46 Arm band placed on right wrist. ke1 06:47 Bed in low position. Call light in reach. Side rails up X 1. ke1 07:18 Madhu Francois DO is Referral Physician. chetan 07:18 Etienne Torres MD is Referral Physician. chetan 07:18 Li Leigh MD is Referral Physician. chetan 07:20 Client placed on continuous cardiac and pulse oximetry monitoring. NIBP monitoring ko1 applied. Turned to right side. 07:20 No provider procedures requiring assistance completed. Patient did not have IV access ko1 during this emergency room visit. Administered Medications: 07:21 Drug: Ketorolac 60 mg Route: IM; Site: left gluteus; ko1 07:21 Drug: Valium (diazepam) 10 mg Route: PO; ko1 Medication: 07:20 VIS not applicable for this client. ko1 Outcome: 07:18 Discharge ordered by . chetan 07:56 Discharged to home via ambulance. ko1 07:56 Condition: improved 07:56 Discharge instructions given to patient, Instructed on discharge instructions, follow up and referral plans. medication usage, Demonstrated understanding of instructions, follow-up care, medications, Prescriptions given X 3. 07:57 Patient left the ED. ko1 Signatures: Stu Banerjee MD MD cha Swanson, Donovan ds4 Brandon Kan RN RN ke1 Uyen Donahue RN RN ko1
--- NOTE | 2022-08-04 07:19 | EDPHYS ---
Physician Documentation [facility] Name: Kiel Ngo Age: 71 yrs Sex: Male : 1950 Arrival Date: 08/04/2022 Time: 06:39 Bed 15 Private MD: ED Physician Stu Banerjee HPI: 08/04 07:10 This 71 yrs old Male presents to ER via EMS with complaints of chronic right chetan hip pain. 07:10 The patient or guardian reports pain. that occurred at an unknown site. The complaints chetan affect the right upper thigh. Onset: The symptoms/episode began/occurred chronic. Modifying factors: The symptoms are alleviated by nothing, the symptoms are aggravated by nothing. Associated signs and symptoms: Loss of consciousness: the patient experienced no loss of consciousness, Pertinent positives: None. Pertinent negatives: None. Severity of symptoms: At their worst the symptoms were mild, moderate, in the emergency department the symptoms are unchanged. The patient has experienced similar episodes in the past, chronically. Historical: - Allergies: 06:45 Demerol; ke1 06:45 metformin; ke1 06:45 Morphine; ke1 - PMHx: 06:45 Atrial fibrillation; chronic back pain; Chronic right leg pain; neuropathy; ke1 - PSHx: 06:45 back sx; PANCREAS SX; R. Ankle SX; ke1 - Immunization history:: Client reports receiving the 2nd dose of the Covid vaccine. - Social history:: Smoking status: Patient denies any tobacco usage or history of. - Family history:: not pertinent. ROS: 07:10 Constitutional: Negative for fever, chills, and weight loss, Eyes: Negative for injury, chetan pain, redness, and discharge, ENT: Negative for injury, pain, and discharge, Neck: Negative for injury, pain, and swelling, Cardiovascular: Negative for chest pain, palpitations, and edema, Respiratory: Negative for shortness of breath, cough, wheezing, and pleuritic chest pain, Abdomen/GI: Negative for abdominal pain, nausea, vomiting, diarrhea, and constipation, Back: Negative for injury and pain, : Negative for injury, bleeding, discharge, and swelling, Skin: Negative for injury, rash, and discoloration, Neuro: Negative for headache, weakness, numbness, tingling, and seizure, Psych: Negative for depression, anxiety, suicide ideation, homicidal ideation, and hallucinations, Allergy/Immunology: Negative for hives, rash, and allergies, Endocrine: Negative for neck swelling, polydipsia, polyuria, polyphagia, and marked weight changes, Hematologic/Lymphatic: Negative for swollen nodes, abnormal bleeding, and unusual bruising. 07:10 MS/extremity: Positive for decreased range of motion, pain, of the right inner thigh and right upper thigh. Exam: 07:10 Constitutional: This is a well developed, well nourished patient who is awake, alert, chetan and in no acute distress. Head/Face: Normocephalic, atraumatic. Eyes: Pupils equal round and reactive to light, extra-ocular motions intact. Lids and lashes normal. Conjunctiva and sclera are non-icteric and not injected. Cornea within normal limits. Periorbital areas with no swelling, redness, or edema. ENT: Nares patent. No nasal discharge, no septal abnormalities noted. Tympanic membranes are normal and external auditory canals are clear. Oropharynx with no redness, swelling, or masses, exudates, or evidence of obstruction, uvula midline. Mucous membranes moist. Neck: Trachea midline, no thyromegaly or masses palpated, and no cervical lymphadenopathy. Supple, full range of motion without nuchal rigidity, or vertebral point tenderness. No Meningismus. Chest/axilla: Normal chest wall appearance and motion. Nontender with no deformity. No lesions are appreciated. Cardiovascular: Regular rate and rhythm with a normal S1 and S2. No gallops, murmurs, or rubs. Normal PMI, no JVD. No pulse deficits. Respiratory: Lungs have equal breath sounds bilaterally, clear to auscultation and percussion. No rales, rhonchi or wheezes noted. No increased work of breathing, no retractions or nasal flaring. Abdomen/GI: Soft, non-tender, with normal bowel sounds. No distension or tympany. No guarding or rebound. No evidence of tenderness throughout. Back: No spinal tenderness. No costovertebral tenderness. Full range of motion. Male : Normal genitalia with no discharge or lesions. Skin: Warm, dry with normal turgor. Normal color with no rashes, no lesions, and no evidence of cellulitis. Neuro: Awake and alert, GCS 15, oriented to person, place, time, and situation. Cranial nerves II-XII grossly intact. Motor strength 5/5 in all extremities. Sensory grossly intact. Cerebellar exam normal. Normal gait. Psych: Awake, alert, with orientation to person, place and time. Behavior, mood, and affect are within normal limits. 07:10 Musculoskeletal/extremity: ROM: limited active range of motion due to pain, limited passive range of motion due to pain, in the right inner thigh, Circulation is intact in all extremities. Sensation intact. Compartment Syndrome exam of affected extremity: is normal. Joints: pain at rest, painful range of motion, Weight bearing: is unable to bear weight, DVT Exam: no pain, no tenderness, negative Homans' sign noted on exam, no appreciated bluish discoloration, no erythema, no increased warmth, swelling. Vital Signs: 06:40 BP 110 / 62; Pulse 85; Resp 17; Temp 97.8(O); Pulse Ox 97% on R/A; Weight 83.91 kg; ke1 Height 5 ft. 11 in. (180.34 cm); Pain 10/10; 07:20 BP 113 / 66; Pulse 88; Resp 16; Pulse Ox 98% ; ko1 07:42 BP 125 / 76; Pulse Ox 97% ; ko1 06:40 Body Mass Index 25.80 (83.91 kg, 180.34 cm) ke1 MDM: 06:45 Patient medically screened. chetan 07:15 Differential diagnosis: bursitis, strain. Data reviewed: vital signs, nurses notes, EMS chetan record. 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 Test interpretation: by ED physician or midlevel provider:. 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 Administered Medications: 07:21 Drug: Ketorolac 60 mg Route: IM; Site: left gluteus; ko1 07:21 Drug: Valium (diazepam) 10 mg Route: PO; ko1 Disposition Summary: 08/04/22 07:18 Discharge Ordered Location: Home chetan Problem: new chetan Symptoms: have improved chetan Condition: Stable chetan Diagnosis - Pain in right hip chetan - Other chronic pain - right hip chetan Followup: [facility] - With: Private Physician - When: 2 - 3 days - Reason: Recheck today's complaints, Continuance of care, Re-evaluation by your physician Followup: [facility] - With: Madhu Francois DO - When: 2 - 3 days - Reason: Recheck today's complaints, Continuance of care, Re-evaluation by your physician Followup: [facility] - With: Etienne Torres MD - When: 2 - 3 days - Reason: Recheck today's complaints, Re-evaluation by your physician Followup: [facility] - With: Li Leigh MD - When: 2 - 3 days - Reason: Recheck today's complaints, Re-evaluation by your physician Discharge Instructions: - Discharge Summary Sheet chetan - Joint Pain chetan - Arthritis chetan - Chronic Back Pain chetan - Chronic Pain, Adult chetan - Musculoskeletal Pain chetan - Hip Pain chetan - Joint Pain, [id number] Forms: - Medication Reconciliation Form [facility] - Thank You Letter [facility] - Antibiotic Education [facility] - Prescription Opioid Use [facility] Prescriptions: - Tylenol 325 mg Oral Tablet - take 2 tablets by ORAL route every 6 hours as needed; 1 bottle; Refills: 0, [facility] Product Selection Permitted - Motrin IB 200 mg Oral Tablet - take 2 tablet by ORAL route every 6 hours As needed as needed with food; 30 chetan tablet; Refills: 0, Product Selection Permitted - Cyclobenzaprine 5 mg Oral Tablet - take 1 tablet by ORAL route 3 times per day As needed; 15 tablet; Refills: 0, [facility] Product Selection Permitted Signatures: Stu Banerjee MD MD cha Ebrottie, Kouassi RN RN ke1 Uyen Donahue RN RN ko1
[2022-08-04 08:02] VITALS: TEMP 97.8
[2022-08-04 08:04] VITALS: BP 125/76; O2SAT 97
== END 2022-08-04 07:57 | disposition home or self-care (01) ==
LOC: ER 06:36
DX: G89.29 Other chronic pain (principal); M25.551 Pain in right hip; Z88.5 Allergy status to narcotic agent; Z88.8 Allergy status to other drugs, medicaments and biological substances
CPT/HCPCS: 96372; 99283

== ENCOUNTER 2022-08-07 07:58 | Emergency (ER) | payer OTHER ==
--- OUTSIDE RECORDS SUMMARY | 2022-08-07 08:06 | XMS REPORT | Continuity of Care Document ---
:[address] [facility] t Address [address] [place] [address] Care Team Providers Name Role Phone CALVIN [...] PACO LACEY Attending Clinician Unavailable Doctor Unassigned, [place] Attending Clinician Unavailable Wilder VILLAREAL, Angi K.HWong Attending Clinician Jl Mccabe MD Attending Clinician Kelly Washington MD Attending Clinician [phone] Mukul Gallardo MD Attending Clinician MUKUL GALLARDO Admitting Clinician Unavailable Harrison MD, Premal G Admitting Clinician KRUPA VIKA G Admitting Clinician Unavailable Nicci VILLAREAL, Mukul Anand Admitting Clinician Payers Payer Name Policy Type Policy Number Effective Date Expiration Date Tony doe MEDICARE PART A [id number] 2007 \\T\\ B 00:00:00 [employer] INDEMNITY [id number] 2016 00:00:00 MEDICARE PART A [id number] 2014 \\T\\ B - MEDICARE 00:00:00 INDEMNITY/TRADITIO [id number] NAL CHOICE - [employer] 00:00:00 Problems Condition [...] ents Source Name Type Date Date Clinician [place] [facility] Active Rash 2019- Univers ty to [...] Quantity Comments Source Exposure to Not sure [place] of SARS-CoV-2 [place] [facility] (event) Branch History of Chews Tobacco University of tobacco use [place] [facility] History SDOH 2020-11-17 2020-11-17 5 University o f Financial 00:00:00 00:00:00 [place] [facility] History SDWA Food 2020-11-17 2020-11-17 1 Univers ity of Worry 00:00:00 00:00:00 [place] [facility] History SDOH Food 2020-11-17 2020-11-17 1 Univers ity of Scarcity 00:00:00 00:00:00 [place] [facility] History SDOH 2020-11-17 2020-11-17 1 University o f Transport Med 00:00:00 00:00:00 [place] [facility] al [facility] History SDOH 2020-11-17 2020-11-17 1 University o f Transport Non-Med 00:00:00 00:00:00 [facility] edical Branch Education 2020-11-16 2020-11-16 21 [place] of 00:00:00 00:00:00 [facility] Alcohol intake 2020-11-16 2020-11-16 Ex-drinker [facility] 00:00:00 00:00:00 (finding) [facility] Tobacco use and 2020-08-21 2020-08-21 Former user Universi ty of exposure 00:00:00 00:00:00 [facility] Tobacco Comment 2020-08-21 2020-08-21 quit 10 years Univer sity of 00:00:00 00:00:00 ago, started in [place] Med ical 2nd year of Branch college (~40 years) Alcohol Comment 2020-08-21 2020-08-21 Used to have 2-3 Uni versity of 00:00:00 00:00:00 six-packs of [place] Medica l beer daily x 20 Branch years, quit 2004 History [facility] 2020-08-21 2020-08-21 99 University o f Alcohol Frequency 00:00:00 00:00:00 [place] [facility] ed[facility] Branch History [facility] 2020-08-21 2020-08-21 99 [place] o f Alcohol Std 00:00:00 00:00:00 [place] [facility] Drinks Branch History [facility] 2020-08-21 2020-08-21 99 [place] o f Alcohol Binge 00:00:00 00:00:00 [facility] [place] Sex Assigned At [birth year] Universit y of 00:00:00 00:00:00 [facility] Smoking Status Start Date Stop Date Source Never smoker [facility] Medications Ordered Filled Start Stop Current [...] by ity of tablet 22:47: mouth at [place] 18 bedtime. Medical Branch HYDROmorpho 2020-0 Yes [...] by ity of tablet 22:47: mouth at [place] 18 bedtime. Medical Branch HYDROmorpho 0 Yes [...] ity of tablet 16:47: mouth at [place] 18 bedtime. Medical Branch HYDROmorpho 0 Yes [...] 0845, Until Discontinu ed, Routine amLODIPine Yes [id number] 10mg Take 1 Univers 10 mg 3-07 tablet by ity of tablet 00:00: mouth [place] 00 daily. Medical Branch clotrimazol Yes [id number] Apply to Univers e 1 % 3-07 face/ears, ity of topical 00:00: armpits, [place] cream 00 pannus and Medical back/any Branch other rash twice a day fluocinonid 0 Yes [id number] Apply to Univers e 0.05 % 3-07 scalp ity of solution 00:00: twice a [place] 00 day Medical Branch triamcinolo Yes [id number] Apply to Univers ne 3-07 back, ity of acetonide 00:00: armpits [place] 0.1 % cream 00 and other Med ical affected Branch areas twice daily, please mix with clotrimazo le hydrOXYzine Yes [id number] 10mg Take 1 Univers 10 mg 3-07 tablet by ity of tablet 00:00: mouth 2 00 (two) Medical times Branch daily. amLODIPine Yes [id number] 10mg Take 1 Univers 10 mg 3-07 tablet by ity of tablet 00:00: mouth [place] 00 daily. Medical Branch clotrimazol Yes [id number] Apply to Univers e 1 % 3-07 face/ears, ity of topical 00:00: armpits, [place] cream 00 pannus and Medical back/any Branch other rash twice a day fluocinonid Yes [id number] Apply to Univers e 0.05 % 3-07 scalp ity of solution 00:00: twice a day Medical Branch triamcinolo Yes [id number] Apply to Univers ne 3-07 back, ity of acetonide 00:00: armpits [place] 0.1 % cream 00 and other Med ical affected Branch areas twice daily, please mix with clotrimazo le hydrOXYzine Yes [id number] 10mg Take 1 Univers 10 mg 3-07 tablet by ity of tablet 00:00: mouth 2 [place] 00 (two) Medical times Branch daily. amLODIPine Yes [id number] 10mg Take 1 Univers 10 mg 3-07 tablet by ity of tablet 00:00: mouth [place] 00 daily. Medical Branch clotrimazol 0 Yes [id number] Apply to Univers e 1 % 3-07 face/ears, ity of topical 00:00: armpits, [place] cream 00 pannus and Medical back/any Branch other rash twice a day fluocinonid 2020-0 Yes [id number] Apply to Univers e 0.05 % 3-07 scalp ity of solution 00:00: twice a day Medical Branch triamcinolo 2020-0 Yes [id number] Apply to Univers ne 3-07 back, ity of acetonide 00:00: armpits [place] 0.1 % cream 00 and other Med ical affected Branch areas twice daily, please mix with clotrimazo le hydrOXYzine Yes [id number] 10mg Take 1 Univers 10 mg 3-07 tablet by ity of tablet 00:00: mouth 2 [place] (two) Medical times Branch daily. amLODIPine Yes [id number] 10mg Take 1 Univers 10 mg 3-07 tablet by ity of tablet 00:00: mouth [place] 00 daily. Medical Branch clotrimazol Yes [id number] Apply to Univers e 1 % 3-07 face/ears, ity of topical 00:00: armpits, [place] cream 00 pannus and Medical back/any Branch other rash twice a day fluocinonid Yes [id number] Apply to Univers e 0.05 % 3-07 scalp ity of solution 00:00: twice a day Medical Branch triamcinolo 0 Yes [id number] Apply to Univers ne 3-07 back, ity of acetonide 00:00: armpits [place] 0.1 % cream 00 and other Med ical affected Branch areas twice daily, please mix with clotrimazo le hydrOXYzine Yes [id number] 10mg Take 1 Univers 10 mg 3- tablet by ity of tablet 00:00: mouth 2 (two) Medical times Branch daily. cephALEXin 2020-2020- No [id number] 500mg Take 1 Univers 500 mg -04 14- capsule by ity of capsule 00:00: 05:59 mouth [place] 00 :00 every 6 Medical (six) Branch hours for 3 days. cephALEXin 2020-0 2020- No [id number] 500mg Take 1 Univers 500 mg 3-04 14- capsule by ity of capsule 00:00: 05:59 mouth [place] 00 :00 every 6 Medical (six) Branch hours for 3 days. hydrOXYzine 2020-2020- No [id number] 10mg Take 1 Univers 10 mg 3- 03-07 tablet by ity of tablet 00:00: 00:00 mouth 2 [place] 00 :00 (two) Medical times [place] daily. morpHINE Yes 4mg 4 mg, Slow Uni vers injection 4 -06 IV Push, ity of mg 22:40: Q6HPRN, [place] 02 Starting Medical 12/16/20 [place] at 1640, Until Discontinu ed, Routine, Pain [...] 00 :00 dose, Sat Medical 12/16/20 at [place] 0515, Routine lactated 2020- No 1000mL at 125 Univ ers ringers IV 12-16 03-06 mL/hr, ity of infusion 01:00: 00:16 1,000 mL, [place] 1,000 mL 00 :00 IV Medical Infusion, [place] ONCE, 1 dose, 12/15/20 at 1900, Routine iohexol 2020- No 100mL 100 mL, Unive rs (OMNIPAQUE 12-15-05 Intravenou it y of 350 22:24: 22:24 s, ONCE, 1 [place] BULK-100 00 :00 dose, Fri Medica l mL) 12/15/20 at [place] injection 1645, 100 mL Routine cephALEXin 2020- [...] Until Discontinu ed, Routine amLODIPine 2020- No [id number] 10mg Take 1 Univers 10 mg 12-1507 tablet by ity of tablet 00:00: 00:00 mouth [place] 00 :00 daily. Medical Branch HYDROmorpho 2020- No 1mg 1 mg, [facility] ers ne 12-14 03-05 Oral, ity of (DILAUDID) 17:35: 15:18 Q6HPRN, [place] tablet 1 mg 30 :06 Starting Medi [facility] 12/14/20 Branch at 1135, Until Fri12/15/20 at 0918, Routine, Pain (scale 7-10) hydrOXYzine Yes 10mg 10 mg, [facility] ers (ATARAX) 304 Oral, BID, ity o f tablet 10 17:30: First dose [place] mg 00 on [facility] 12/14/20 at Branch 1130, Until Discontinu ed, Routine lisinopriL 0 Yes 5mg 5 mg, Univer s (PRINIVIL,Z -04 Oral, ity of ESTRIL) 17:30: DAILY, [place] tablet 5 mg 00 First dose Me dical on [facility] Branch 12/14/20 at 1130, Until Discontinu ed, Routine triamcinolo 2020- No [id number] Apply to Univers ne 12-14 back, ity of acetonide 00:00: 00:00 armpits [place] 0.1 % cream 00 :00 and other Med ical affected Branch areas twice daily, please mix with clotrimazo le clotrimazol 2020- No [id number] Apply to Univers e 1 % 12-14 face/ears, ity of topical 00:00: 00:00 armpits, [place] cream 00 :00 pannus and Medical back/any Branch other rash twice a day fluocinonid 2020- No [id number] Apply to Univers e 0.05 % 12-14 scalp ity of solution 00:00: 00:00 twice a [place] 00 :00 day Medical Branch hydrOXYzine 2020- No [id number] 10mg Take 1 Univers 10 mg 12-14 [...] injection 4 00 :00 dose, [facility] ical mg 12/12/20 at Branch 2300, Routine traMADoL 2020- No 50mg 50 mg, Univer s (ULTRAM) 12-13 03-03 Oral, ity of tablet 50 03:45: 03:34 ONCE, 1 [place] mg 00 :00 dose, [facility] 12/12/20 at Branch 2145, Routine insulin Yes 15U 15 Units, [facility] rs glargine 12-12 Subcutaneo ity o f (LANTUS 15:00: us, DAILY, [place] U-100) 00 First dose Medical injection on [facility] 15 Units 12/12/20 at 0900, Until Discontinu ed hydrOXYzine 2020- No 10mg 10 mg, Uni vers (ATARAX) 12-12 03-02 Oral, ity of tablet 10 08:15: 07:33 ONCE, 1 [place] mg 00 :00 dose, [facility] 12/12/20 at Branch 0215, Routine mirtazapine Yes 7.5mg 7.5 mg, Un toi (REMERON) 3-02 Oral, QHS, ity of tablet 7.5 03:00: First dose [place] mg 00 on [facility] 12/11/20 at Branch 2100, Until Discontinu ed, [...] ity of (TYLENOL 23:23: 13:49 Q6HPRN, [place] #3) 300-30 43 :08 Starting Medic al [...] 00 Fri12/11/20 Me dical cream at 1315, [place] Until Discontinu ed, Routine hydrocortis 0 Yes [...] ity of 1,000 mg in 19:00: 17:35 [place], [place] NaCl 0.9% 00 :26 Q8H ABX, [...] ed, Routine insulin Yes 5U 5 Units, [facility] lispro 12-11 Subcutaneo ity of (human) 18:00: us, TID [place] (HumaLOG 00 MEALS, Medical U-100) First dose Branch injection 5 on Mon Units 12/11/20 at 1200, Until Discontinu ed Polyethylen Yes 17g 17 g, [facility] rs e Glycol 12-11 Oral, ity of 3350 17:47: [id number], [place] (MIRALAX) 05 Starting Medica l powder 17 g 12/11/20 Br anch at 1147, Until Discontinu ed, Routine, Constipati on acetaminoph Yes 650mg 650 mg, Un toi en 12-11 Oral, ity of (TYLENOL) 16:51: Q6HPRN, [place] tablet 650 28 Starting Medic al mg [...] 0630, STAT piperacilli No 3.375g 3.375 g, [facility] n-tazobacta 12-11 IV ity of m (ZOSYN) 12:00: 17:48 [place], [place] injection 00 :24 Q6H, First Medi jose c 3.375 g dose on Branch Fri12/11/20 at 0600, Until Discontinu ed, KAHLIL
Re ason for Anti-Infec tive: Empiric Therapy for Suspected Infection< br>Empiric Therapy Site: Skin / Soft tissue
Duration of therapy: 72 hours sennosides- Yes [id number] 1{tbl} Take 1 [facility] docusate 2-09 tablet by ity of sodium 00:00: mouth 2 [place] 8.6-50 mg 00 (two) Medical per tablet times Branch daily. hydrocortis Yes [id number] Apply to [facility] one 2.5 % 11-21 affected ity of cream 00:00: area(s) 2 [place] 00 (two) Medical times Branch daily. blood sugar Yes [id number] Use to [facility] diagnostic 2 check ity of (FREESTYLE 00:00: blood [place] LITE 00 glucose Medical STRIPS) 4-5 times Branch strip daily. Polyethylen Yes [id number] 17g Take 1 Univers e Glycol 2-09 Packet by ity of 3350 17 00:00: mouth [place] gram powder 00 every 24 Medi jose c (twenty-fo Branch ur) hours as needed for Constipati on. sennosides- Yes [id number] 1{tbl} Take 1 Univers docusate 2-09 tablet by ity of sodium 00:00: mouth 2 [place] 8.6-50 mg 00 (two) Medical per tablet times Branch daily. hydrocortis Yes [id number] Apply to Univers one 2.5 % 2-09 affected ity of cream 00:00: area(s) 2 [place] 00 (two) Medical times Branch daily. blood sugar Yes [id number] Use to Univers diagnostic 11-21 check ity of (FREESTYLE 00:00: blood [place] LITE 00 glucose Medical STRIPS) 4-5 times Branch strip daily. Polyethylen Yes [id number] 17g Take 1 Univers e Glycol 2-09 Packet by ity of 3350 17 00:00: mouth [place] gram powder 00 every 24 Medi jose c (twenty-fo Branch ur) hours as needed for Constipati on. sennosides- Yes [id number] 1{tbl} Take 1 Univers docusate 2-09 tablet by ity of sodium 00:00: mouth 2 [place] 8.6-50 mg 00 (two) Medical per tablet times Branch daily. hydrocortis Yes [id number] Apply to Univers one 2.5 % 2-09 affected ity of cream 00:00: area(s) 2 [place] 00 (two) Medical times Branch daily. blood sugar Yes [id number] Use to Univers diagnostic 11-21 check ity of (FREESTYLE 00:00: blood [place] LITE 00 glucose Medical STRIPS) 4-5 times Branch strip daily. Polyethylen 2020-0 Yes [id number] 17g Take 1 Univers e Glycol 2-09 Packet by ity of 3350 17 00:00: mouth [place] gram powder 00 every 24 Medi jose c (twenty-fo Branch ur) hours as needed for Constipati on. sennosides- Yes [id number] 1{tbl} Take 1 Univers docusate 2-09 tablet by ity of sodium 00:00: mouth 2 [place] 8.6-50 mg 00 (two) Medical per tablet times Branch daily. hydrocortis Yes [id number] Apply to [facility] one 2.5 % 11-21 affected ity of cream 00:00: area(s) 2 [place] 00 (two) Medical times Branch daily. blood sugar Yes [id number] Use to [facility] diagnostic 11-21 check ity of (FREESTYLE 00:00: blood [place] LITE 00 glucose Medical STRIPS) 4-5 times Branch strip daily. Polyethylen Yes [id number] 17g Take 1 Univers e Glycol 11-21 Packet by ity of 3350 17 00:00: mouth [place] gram powder 00 every 24 Medi jose c (twenty-fo Branch ur) hours as needed for Constipati on. Insulin 2020- No [id number] 15U inject 15 Univers Glargine 11-21- Units ity of (LANTUS 00:00: 05:59 under the [place] SOLOSTAR 00 :00 skin every Medic al U-100 morning Branch INSULIN) for 30 100 unit/mL days. (3 mL) injection venlafaxine 2020- No [id number] 150mg Take 1 Univers XR 150 mg 11-21 capsule by ity of 24 hr 00:00: 05:59 mouth 3 [place] capsule 00 :00 (three) Medical times Branch daily for 30 days. Insulin 2020- No [id number] 15U inject 15 Univers Glargine 11-21-12 Units ity of (LANTUS 00:00: 05:59 under the [place] [employer] [place] 00 :00 skin every Medic al U-100 morning Branch INSULIN) for 30 100 unit/mL days. (3 mL) injection venlafaxine 2020- No [id number] 150mg Take 1 Univers XR 150 mg 11-21- capsule by ity of 24 hr 00:00: 05:59 mouth 3 [place] capsule 00 :00 (three) Medical times Branch daily for 30 days. triamcinolo 2020- No [id number] Apply to [facility] ne 11-21-04 area(s) 2 ity of acetonide 00:00: 00:00 (two) [place] 0.1 % cream 00 :00 times Medical daily. Branch cephALEXin 2020- No [id number] 1000mg Take 2 Univers 500 mg 11-21 capsules ity of capsule 00:00: 00:00 by mouth 3 [place] 00 :00 (three) Medical times Branch daily. doxycycline 2020- No [id number] 100mg Take 1 Univers hyclate 100 11-21 capsule by i ty of mg capsule 00:00: 00:00 mouth [place] 00 :00 every 12 Medical (twelve) Branch hours. lactobacill 2020- No [id number] 1{tbl} Take 1 Univers us 11-21 tablet by ity of acidophilus 00:00: 00:00 mouth 2 [place] 25 million 00 :00 (two) Medical cell -100 times Branch mg captab daily. bisacodyL 2020- No [id number] 10mg Insert 1 Univers 10 mg 11-21 Suppositor ity of suppository 00:00: 00:00 y into [place] 00 :00 rectum at Medical bedtime as Branch needed for Constipati on. ALPRAZolam 2020- No [id number] .25mg Take 1 Univers (XANAX) 11-21 tablet by ity of 0.25 mg 00:00: 00:00 mouth 2 [place] tablet 00 :00 (two) Medical times Branch daily. hydrOXYzine 2020- No [id number] 20mg Take 2 Univers 10 mg 11-21 [...] 3 ity of 6 mg 01:13: (three) [place] capsule 36 times Medical daily. Branch Insulin 2019-10 Yes 15U inject 15 Unive rs Glargine 1-12 Units ity of (LANTUS 01:13: under the [place] SOLOSTAR) 36 skin. Medical 100 unit/mL Branch (3 mL) InPn INSULIN 2019-10 Yes 5U inject 5 Univer s ASPART 1-12 Units ity of (NOVOLOG 01:13: under the [facility] FLEXPEN SC) 36 skin. Medical Branch [...] 3 ity of 6 mg 01:13: (three) [place] capsule 36 times Medical daily. Branch Insulin 2019-10 Yes 15U inject 15 Unive rs Glargine 1-12 Units ity of (LANTUS 01:13: under the [place] SOLOSTAR) 36 skin. Medical 100 unit/mL Branch (3 mL) InPn INSULIN 2019-10 Yes 5U inject 5 Univer s ASPART 1-12 Units ity of (NOVOLOG 01:13: under the [facility] FLEXPEN SC) 36 skin. Medical Branch [...] ity of (LANTUS 01:13: under the [place] SOLOSTAR) 36 skin. Medical 100 unit/mL Branch [...] mouth ity of ORAL 20:04: 00:00 daily. [place] 34 :00 Medical Branch hydrocortis 2019-10 Yes [id number] Apply to Univers one 2.5 % 1-11 affected ity of cream 00:00: area(s) 2 [place] 00 (two) Medical times Branch daily. hydrOXYzine 2019-10 Yes [id number] 20mg Take 2 Univers 10 mg 1-11 tablets by ity of tablet 00:00: mouth [place] 00 every 8 Medical (eight) Branch hours as needed for Itching or Anxiety. Polyethylen 2019-10 Yes [id number] 17g Take 1 Univers e Glycol 1-11 Packet by ity of 3350 17 00:00: mouth [place] gram powder 00 every 24 Medi jose c (twenty-fo Branch ur) hours as needed for Constipati on. hydrocortis 2019-10 Yes [id number] Apply to Univers one 2.5 % 1-11 affected ity of cream 00:00: area(s) 2 [place] 00 (two) Medical times Branch daily. hydrOXYzine 2019- Yes [id number] 20mg Take 2 Univers 10 mg 1-11 tablets by ity of tablet 00:00: mouth [place] 00 every 8 Medical (eight) Branch hours as needed for Itching or Anxiety. Polyethylen 2019- Yes [id number] 17g Take 1 Univers e Glycol 1-11 Packet by ity of 3350 17 00:00: mouth [place] gram powder 00 every 24 Medi jose c (twenty-fo Branch ur) hours as needed for Constipati on. hydrocortis 2019- Yes [id number] Apply to Univers one 2.5 % 1-11 affected ity of cream 00:00: area(s) 2 [place] (two) Medical times Branch daily. hydrOXYzine 2019-10 Yes [id number] 20mg Take 2 Univers 10 mg 1-11 tablets by ity of tablet 00:00: mouth [place] 00 every 8 Medical (eight) Branch hours as needed for Itching or Anxiety. Polyethylen 2019- Yes [id number] 17g Take 1 Univers e Glycol 1-11 Packet by ity of 3350 17 00:00: mouth [place] gram powder 00 every 24 Medi jose c (twenty-fo Branch ur) hours as needed for Constipati on. hydrocortis 2019-10 Yes [id number] Apply to Univers one 2.5 % 1-11 affected ity of cream 00:00: area(s) 2 [place] (two) Medical times Branch daily. hydrOXYzine 2019-10 Yes [id number] 20mg Take 2 Univers 10 mg 1-11 tablets by ity of tablet 00:00: mouth [place] 00 every 8 Medical (eight) Branch hours as needed for Itching or Anxiety. Polyethylen 2019-10 Yes [id number] 17g Take 1 Univers e Glycol 1-11 Packet by ity of 3350 17 00:00: mouth [place] gram powder 00 every 24 Medi jose c (twenty-fo Branch ur) hours as needed for Constipati on. hydrocortis 2019-10 Yes [id number] Apply to Univers one 2.5 % 1-11 affected ity of cream 00:00: area(s) 2 [place] 00 (two) Medical times Branch daily. hydrOXYzine 2019-10 Yes [id number] 20mg Take 2 Univers 10 mg 1-11 tablets by ity of tablet 00:00: mouth [place] 00 every 8 Medical (eight) Branch hours as needed for Itching or Anxiety. Polyethylen 2019- Yes [id number] 17g Take 1 Univers e Glycol 1-11 Packet by ity of 3350 17 00:00: mouth [place] gram powder 00 every 24 Medi jose c (twenty-fo Branch ur) hours as needed for Constipati on. hydrocortis 2019-10 Yes [id number] Apply to Univers one 2.5 % 1-11 affected ity of cream 00:00: area(s) 2 [place] 00 (two) Medical times Branch daily. hydrOXYzine 2019- Yes [id number] 20mg Take 2 Univers 10 mg 1-11 tablets by ity of tablet 00:00: mouth [place] 00 every 8 Medical (eight) Branch hours as needed for Itching or Anxiety. Polyethylen 2019- Yes [id number] 17g Take 1 Univers e Glycol 1-11 Packet by ity of 3350 17 00:00: mouth [place] gram powder 00 every 24 Medi jose c (twenty-fo Branch ur) hours as needed for Constipati on. hydrocortis 2019- Yes [id number] Apply to Univers one 2.5 % 1-11 affected ity of cream 00:00: area(s) 2 [place] 00 (two) Medical times Branch daily. hydrOXYzine 2019- Yes [id number] 20mg Take 2 Univers 10 mg 1-11 tablets by ity of tablet 00:00: mouth [place] 00 every 8 Medical (eight) Branch hours as needed for Itching or Anxiety. Polyethylen 2019- Yes [id number] 17g Take 1 Univers e Glycol 1-11 Packet by ity of 3350 17 00:00: mouth [place] gram powder 00 every 24 Medi jose c (twenty-fo Branch ur) hours as needed for Constipati on. triamcinolo 2019- 2020- No [id number] Apply to Univers ne 10-23 area(s) 2 ity of acetonide 00:00: 05:59 (two) [place] 0.1 % cream 00 :00 times Medical daily for Branch 14 days. triamcinolo 2019- 2020- No [id number] Apply to Univers ne 10-23 area(s) 2 ity of acetonide 00:00: 05:59 (two) [place] 0.1 % cream 00 :00 times Medical daily for Branch 14 days. triamcinolo 2020- 2020- No [id number] Apply to [facility] ne 10-23 area(s) 2 ity of acetonide 00:00: 05:59 (two) [place] 0.1 % cream 00 :00 times Medical daily for Branch 14 days. KCL 2019- 2020- No 40meq 40 mEq, Univers (KLOR-CON 1-10 11-10 Oral, ONCE ity of M20) tablet 16:15: 16:23 NOW, 1 [place] 40 mEq 00 :00 dose, [facility] 08/22/20 Branch at 1015, Routine HYDROmorpho 2019-10 Yes 1mg 1 mg, Unive rs ne 1-10 Oral, ity of (DILAUDID) 15:07: Q6HPRN, [place] tablet 1 mg 53 Starting [facility] 08/22/20 at 0907, Until Discontinu ed, Routine, Pain (scale 7-10) hydrocortis 2019-10 Yes Topical Uni vers one 2.5 % 1-10 (Apply To ity o f cream 02:00: Affected [place] 00 Areas), Medical BID, First Branch dose on [facility] 08/21/20 at 2000, Until Discontinu ed, Routine triamcinolo 2019-10 Yes Topical, Un toi ne 1-10 BID, First ity of acetonide 02:00: dose on [place] (TRIDERM) [facility] Medical 0.1 % cream 08/21/20 at Br anch 2000, Until Discontinu ed, Routine hydrOXYzine 2019-10 Yes 20mg 20 mg, Univ ers (ATARAX) 09 Oral, ity of tablet 20 17:39: Q8HPRN, [place] mg 12 Starting [facility] 08/21/20 at 1139, Until Discontinu ed, Routine, Itching, Anxiety sennosides- 2019-10 Yes 1{tbl} 1 tablet, Univers docusate 10-21 Oral, ity of sodium 15:00: DAILY, [place] (SENOKOT-S) 00 First dose Me dical 8.6-50 mg on [facility] per tablet 08/21/20 at 1 tablet [...] dose [place] capsule 150 00 on [facility] Medica l mg 08/21/20 at [...] 25 59 :43 Starting Medica l mg [facility] 08/21/20 at 0656, Until Fri08/21/20 at 1139, Routine, Itching, Mild Rash, Congestion /Allergies , alternate with hydroxyzin e hydrOXYzine 2019-10- No 10mg 10 mg, Uni vers (ATARAX) 10-21 Oral, ity of tablet 10 10:20: 12:57 Q6HPRN, [place] mg 22 :12 Starting Medical [facility] 08/21/20 at 0420, Until Fri08/21/20 at [...] 1 ity o f 09:30: 09:14 dose, [facility] 00 :00 08/21/20 at [facility] 0330, Branch Routine Polyethylen 2019-10 Yes 17g 17 g, [facility] Glycol 10-21 Oral, ity of 3350 08:29: [id number], [place] (MIRALAX) 09 Starting Medica l powder 17 g [facility] 08/21/20 at 0229, Until Discontinu ed, Routine, Constipati on lanolin 2019-10 Yes Topical, Univer s alcohol-mo- 10-21 PRN, ity of w.pet-ceres 08:26: Starting [place] (EUCERIN) 30 [facility] Medical cream 08/21/20 at Branch [...] 1-3) sotalol 2019-10 2020- No Take by [facility] s (BETAPACE) 10-21 mouth ity of 240 [...] 2021-08-22 13:00:00 148 mm[Hg] [facility]iver [facility] Diastolic blood 2021-08-22 13:00:00 84 mm[Hg] Unive rs[facility] Heart rate 2021-08-22 13:00:00 103 /min [facility] Respiratory rate 2021-08-22 13:00:00 18 /min [facility] Oxygen saturation in 2021-08-22 13:00:00 95 /min University of Arterial blood by [facility] Pulse oximetry [place] Body temperature 2021-08-22 12:22:00 36.72 [place] [facility] Systolic blood 2020-12-17 18:35:00 139 mm[Hg] [facility] Diastolic blood 2020-12-17 18:35:00 87 mm[Hg] Unive rs[facility] Heart rate 2020-12-17 18:35:00 110 /min [facility] Body temperature 2020-12-17 18:35:00 37.72 [place] [facility] Respiratory rate 2020-12-17 18:35:00 18 /min [facility] Oxygen saturation in 2020-12-17 18:35:00 93 /min University of Arterial blood by [facility] Pulse oximetry Branch Body height 2020-12-12 08:21:00 180.3 cm [facility] Body weight 2020-12-12 08:21:00 103.42 kg [facility] [place] [facility] BMI 2020-12-12 08:21:00 31.80 kg/m2 [facility] [place] [facility] Systolic blood 2020-12-17 18:35:00 139 mm[Hg] Univer [facility]ity [facility] [place] [facility] Diastolic blood 2020-12-17 18:35:00 87 mm[Hg] Unive rsity of [facility] [place] [facility] Heart rate 2020-12-17 18:35:00 110 /min [facility] [place] [facility] Body temperature 2020-12-17 18:35:00 37.72 [place] [facility] [place] [facility] Respiratory rate 2020-12-17 18:35:00 18 /min Univ [facility] [place] [facility] Oxygen saturation in 2020-12-17 18:35:00 93 /min University of Arterial blood by [facility] Pulse oximetry Branch Body height 2020-12-12 08:21:00 180.3 cm [facility] Body weight 2020-12-12 08:21:00 103.42 kg [facility] BMI 2020-12-12 08:21:00 31.80 kg/m2 [facility] [place] [facility] Systolic blood 2020-08-23 19:27:00 140 mm[Hg] Univer [facility]ity [facility] [place] [facility] Diastolic blood 2020-08-23 19:27:00 79 mm[Hg] Unive rsity of [facility] [place] [facility] Heart rate 2020-08-23 19:27:00 99 /min [facility] [place] [facility] Body temperature 2020-08-23 19:27:00 36 [place] [facility] [place] [facility] Respiratory rate 2020-08-23 19:27:00 18 /min [facility] [place] [facility] Oxygen saturation in 2020-08-23 19:27:00 93 /min University of Arterial blood by [facility] Pulse oximetry Branch Body weight 2020-08-21 07:20:00 104.962 kg [facility] BMI 2020-08-21 07:20:00 32.27 kg/m2 [facility] [place] [facility] Systolic blood 2020-08-23 19:27:00 140 mm[Hg] Univer sity of pressure [facility] Diastolic blood 2020-08-23 19:27:00 79 mm[Hg] [facility] Heart rate 2020-08-23 19:27:00 99 /min [facility] Body temperature 2020-08-23 19:27:00 36 [place] [facility] Respiratory rate 2020-08-23 19:27:00 18 /min [facility] Oxygen saturation in 2020-08-23 19:27:00 93 /min [facility] blood by [facility] Pulse oximetry [place] Body weight 2020-08-21 07:20:00 104.962 kg [facility] BMI 2020-08-21 07:20:00 32.27 kg/m2 [facility] Procedures Procedure Date / Time Performing Clinician Source Performed POCT GLUCOSE (AUTOMATED) 2020-12-17 15:42:00 Favio Harrisonal G Uni [facility] BASIC METABOLIC PANEL 2020-12-17 10:45:00 Paul Bean [facility] (NA, K, CL, CO2, GLUCOSE, Kaley Medica l Branch BUN, CREATININE, CA) CBC WITH DIFF 2020-12-17 10:45:00 Paul Bean [facility] POCT GLUCOSE (AUTOMATED) 2020-12-17 02:36:00 [facility] XR TIBIA FIBULA 2 VW LEFT 2020-12-16 23:38:00 [facility]SE (AUTOMATED) 2020-12-16 23:20:00 Harrison, [facility]SE ([facility]OMATED) 2020-12-16 20:10:00 Harrison, Premal [facility] POCT GLUCOSE (AUTOMATED) 2020-12-16 14:43:00 [facility] BASIC METABOLIC PANEL 2020-12-16 13:51:00 Paul Bean [facility] (NA, K, CL, CO2, GLUCOSE, [facility] BUN, CREATININE, CA) CBC WITH DIFF 2020-12-16 13:51:00 Paul Bean [facility] POCT GLUCOSE (AUTOMATED) 2020-12-16 04:00:00 Harrison, Premal G Uni versity of [facility] POCT GLUCOSE (AUTOMATED) 2020-12-16 00:14:00 Harrison, Premal G Uni versity [facility] CT CHEST PULMONARY 2020-12-15 22:29:38 Paul Bean [facility] ANGIOGRAM [facility] POCT GLUCOSE (AUTOMATED) 2020-12-15 19:26:00 Harrison, Premal [facility] POCT GLUCOSE (AUTOMATED) 2020-12-15 15:13:00 Krupa, Premal G Uni [facility] HB ECG ROUTINE & RHYTHM 2020-12-15 14:25:27 Cailin Romo [facility] MAGNESIUM 2020-12-15 12:01:00 Paul Bean Sivakumar [facility] BASIC METABOLIC PANEL 2020-12-15 12:01:00 Paul Bean [facility] (NA, K, CL, CO2, GLUCOSE, [facility] BUN, CREATININE, CA) CBC WITH DIFF 2020-12-15 12:01:00 Paul Bean [facility] POCT GLUCOSE (AUTOMATED) 2020-12-15 03:57:00 Harrison, Premal G Uni versity of [facility] POCT GLUCOSE (AUTOMATED) 2020-12-14 23:31:00 Harrison, Premal G Uni versity of [facility] POCT GLUCOSE (AUTOMATED) 2020-12-14 19:08:00 Harrison, Premal G Uni versity of [facility] POCT GLUCOSE (AUTOMATED) 2020-12-14 15:11:00 Harrison, Premal G Uni versity of [facility] POCT GLUCOSE (AUTOMATED) 2020-12-14 02:36:00 Harrison, Premal G Uni versity of [facility] POCT GLUCOSE (AUTOMATED) 2020-12-13 23:32:00 Harrison, Premal G Uni versity of [facility] POCT GLUCOSE (AUTOMATED) 2020-12-13 18:08:00 Harrison, Premal G Uni versity of [facility] BASIC METABOLIC PANEL 2020-12-13 15:39:00 Paul Bean [facility] (NA, K, CL, CO2, GLUCOSE, [facility] BUN, CREATININE, CA) CBC WITH DIFF 2020-12-13 15:39:00 Paul Bean [facility] POCT GLUCOSE (AUTOMATED) 2020-12-13 14:06:00 Harrison, Premal G Uni versity of [facility] POCT GLUCOSE (AUTOMATED) 2020-12-13 03:07:00 Harrison, Premal G Uni versity of [facility] POCT GLUCOSE (AUTOMATED) 2020-12-12 23:52:00 Harrison, Premal G Uni versity of [facility] POCT GLUCOSE (AUTOMATED) 2020-12-12 20:28:00 Harrison, Premal G Uni versity of [facility] POCT GLUCOSE (AUTOMATED) 2020-12-12 19:14:00 Harrison, Premal G Uni versity of [facility] POCT GLUCOSE (AUTOMATED) 2020-12-12 14:33:00 Harrison, Premal G Uni versity of [facility] MAGNESIUM 2020-12-12 08:58:00 Paul Bean [facility] BASIC METABOLIC PANEL 2020-12-12 08:58:00 Paul Bean [facility] (NA, K, CL, CO2, GLUCOSE, [facility] BUN, CREATININE, CA) CBC WITH DIFF 2020-12-12 08:58:00 Paul Bean [facility] US ABDOMEN LIMITED 2020-12-12 06:32:26 Paul Bean [facility] POCT GLUCOSE (AUTOMATED) 2020-12-12 03:40:00 Harrison, Premal G Uni versity of [facility] POCT GLUCOSE (AUTOMATED) 2020-12-12 00:06:00 Harrison, Premal G Uni versity of [facility] XR HIPS 3 VW LEFT 2020-12-11 20:20:00 Paul Bean Sivakumar [facility] HB ECG ROUTINE & RHYTHM 2020-12-11 20:04:06 Demetrius [facility] STRIP [facility] VITAMIN B6, PLASMA 2020-12-11 19:17:00 [facility] POCT GLUCOSE (AUTOMATED) 2020-12-11 19:06:00 Vika Harrison [facility] CREATINE KINASE 2020-12-11 18:22:[address] [facility] VITAMIN B12, LEVEL 2020-12-11 18:22:[address] [facility] FOLATE 2020-12-11 18:22:00 [facility] THYROID STIMULATING 2020-12-11 18:22:00 Demetrius [facility] HORMONE [facility] PROCALCITONIN 2020-12-11 18:22:00 Vikas [facility] VITAMIN B1 (THIAMINE), 2020-12-11 18:22:00 [facility] CT HEAD WO CONTRAST 2020-12-11 14:07:35 Sweetie Stout [facility] URINALYSIS 2020-12-11 13:44:00 Singer [facility] URINE CULTURE 2020-12-11 13:44:00 Singer [facility] COVID-19 (ID NOW RAPID 2020-12-11 12:31:00 Paco Lacey [facility] TESTING) Medical Branch LAB ONLY COVID 2020-12-11 12:31:00 Singer [facility] INTERPRETATION [facility] XR CHEST 1 VW 2020-12-11 12:07:24 Singer [facility] BLOOD CULTURE SCREEN 2020-12-11 12:02:00 Paco Lacey [facility] MAGNESIUM 2020-12-11 12:02:00 Vikas [facility] FERRITIN SERUM 2020-12-11 12:02:00 Paul Bean [facility] Kaley [facility] COMP. METABOLIC PANEL 2020-12-11 12:02:00 Singer [facility] ([id number]) [facility] CBC WITH DIFF 2020-12-11 12:02:00 Singer [facility] LACTIC ACID WHOLE BLOOD 2020-12-11 12:02:00 Singer Paco [facility] BLOOD CULTURE SCREEN 2020-12-11 11:42:00 Singer Paco [facility] EMERGENCY SERVICES 2020-12-11 06:01:00 Doctor Unassigned, [facility] AGREEMENTS AND [place] [facility] [place] AUTHORIZATIONS HOSPITAL ADMISSION 2020-12-11 06:01:00 Doctor Unaowen, [facility] Name [facility] [place] HOME HEALTH - OTHER 2020-11-11 06:01:00 Doctor Tabitha [facility] Name [facility] [place] HOME HEALTH - OTHER 2020-10-30 06:01:00 Doctor Unaowen [facility] Name [facility] [place] EXTERNAL PROVIDER RECORDS 2020-09-01 06:01:00 Doctor Tabitha, [facility] Name [facility] POCT GLUCOSE (AUTOMATED) 2020-08-23 18:09:00 Kelly Washington [facility] POCT GLUCOSE (AUTOMATED) 2020-08-23 14:14:00 Kelly Washington [facility] MAGNESIUM 2020-08-23 11:18:00 Ramya [facility] BASIC METABOLIC PANEL 2020-08-23 11:18:00 Elba [facility] (NA, K, CL, CO2, GLUCOSE, Medica l Branch BUN, CREATININE, CA) CBC WITH DIFF 2020-08-23 11:18:00 Elba [facility] POCT GLUCOSE (AUTOMATED) 2020-08-23 10:21:00 Kelly Washington [facility] POCT GLUCOSE (AUTOMATED) 2020-08-23 05:55:00 Kelly Washington [facility] POCT GLUCOSE (AUTOMATED) 2020-08-23 03:00:00 Stefania Kelly [facility] POCT GLUCOSE (AUTOMATED) 2020-08-22 23:38:00 Bety Washingtonmarie Elias versity of [facility] POCT GLUCOSE (AUTOMATED) 2020-08-22 19:04:00 Bety Washingtonmarie [facility] POCT GLUCOSE (AUTOMATED) 2020-08-22 13:49:00 Kelly Washington Jada versity [facility] MAGNESIUM 2020-08-22 10:10:00 [facility] PANEL 2020-08-22 10:10:00 Aguila Melchor [facility] ([id number]) (ALB,T.PRO,BILI Medical Branch T,BU/BC,ALT,AST,ALK PHOS) BASIC METABOLIC PANEL 2020-08-22 10:10:00 [facility] (NA, K, CL, CO2, GLUCOSE, Medica l Branch BUN, CREATININE, CA) LIPID PANEL ([id number])(TOTAL 2020-08-22 10:10:00 Elba, [facility] CHOLESTEROL, [facility] [place] TRIGLYCERIDES, HDL) CBC WITH DIFF 2020-08-22 10:10:[address] [facility] POCT GLUCOSE (AUTOMATED) 2020-08-22 10:10:00 Bety Washingtonmarie Elias [facility] POCT GLUCOSE (AUTOMATED) 2020-08-22 07:13:00 Kelly Washington Jada versity [facility] POCT GLUCOSE (AUTOMATED) 2020-08-22 02:24:00 Bety Washingtonmarie Elias versity [facility] POCT GLUCOSE (AUTOMATED) 2020-08-21 23:40:00 Kelly Washington Jada versity of [facility] POCT GLUCOSE (AUTOMATED) 2020-08-21 18:10:00 Kelly Washington Jada versity [facility] POCT GLUCOSE (AUTOMATED) 2020-08-21 13:39:00 Kelly Washington Jada versity [facility] ETHANOL 2020-08-21 12:35:00 [facility] 2020-08-21 12:35:[address] [facility] GALV ONLY - SYPHILIS 2020-08-21 12:35:00 Stefania [facility] IGG/IGM [facility] LACTATE DEHYDROGENASE 2020-08-21 10:09:00 Ramya, [facility] GALV/CLC ONLY - URINE 2020-08-21 10:09:00 [facility] DRUG (IMMUNOASSAY) - 4 ER Medica l Branch PANEL URINALYSIS 2020-08-21 10:09:00 Ramya, [facility] URINE CULTURE 2020-08-21 10:09:00 Ramya, [facility] PROCALCITONIN 2020-08-21 10:09:00 Elba, [facility] POCT GLUCOSE (AUTOMATED) 2020-08-21 09:41:00 Stefania Kelly [facility] PROTHROMBIN TIME / INR 2020-08-21 08:32:00 Elba, [facility] ACTIVATED PARTIAL 2020-08-21 08:32:00 Elba, [facility] C-REACTIVE PROTEIN 2020-08-21 08:31:00 Ramya, [facility] HEPATIC FUNCTION PANEL 2020-08-21 08:31:00 Elba, [facility] ([id number]) (ALB,T.PRO,BILI Medical Branch T,BU/BC,ALT,AST,ALK PHOS) BASIC METABOLIC PANEL 2020-08-21 08:31:00 Elba, [facility] (NA, K, CL, CO2, GLUCOSE, [facility] BUN, CREATININE, CA) SEDIMENTATION RATE 2020-08-21 08:31:00 Elba, [facility] CBC WITH DIFF 2020-08-21 08:31:00 Elba, [facility] GLYCOSYLATED HEMOGLOBIN 2020-08-21 08:31:00 Elba, [facility] (A1C) Medical Branch HIV 1/2 AG-AB WITH REFLEX 2020-08-21 08:31:00 Kelly [place] [facility] [place] [facility] COVID-[facility] (ID NOW RAPID 2020-08-21 08:20:00 [facility]aily [facility] TESTING) Medical Branch LAB ONLY COVID 2020-08-21 08:20:00 Elba [facility] [place] INTERPRETATION [facility] Branch Encounters Start End Encounter Admission Attending Care Care Encounter Source Date/Time Date/Time Type Type Clinicians Facility Department ID 2020-08-21 Inpatient U STEFANIA [facility] [id number] Univers 01:07:00 KELLY brandenana [facility] 2021-08-22 2021-08-22 Emergency [facility] [id number] Univers 06:21:00 08:02:00 SWEETIE cantu [facility] 2021-08-22 2021-08-22 Emergency [facility] [id number] Univers 06:21:00 08:02:00 Sweetie LOTT [id number] i [place] [id number] [facility] 084 Branch 2021-08-09 2021-08-09 Outpatient JACQUELYN HAINES [facility] [id number] [facility] 10:27:03 10:27:03 ADRIANA lopez of Medicin e 2020-12-28 2020-12-28 Telephone [facility] 1.2.840.114 [id number] 00:00:00 00:00:00 Calvin H PRIMARY [id number] CARE 4.2.7.2.686 PAVILLION [id number] 2020-12-28 2020-12-28 Telephone [facility] 1.2.840.114 [id number] Univers 00:00:00 00:00:00 Calvin H PRIMARY [id number] it y of [place] [id number] Sc dical 220 Branch 2020-12-19 2020-12-19 Transition Tuan Peters 1.2.840.114 [id number] 00:00:00 00:00:00 of Care Ruchi Braswell [id number] [place] 4.2.7.2.686 [id number] 2020-12-19 2020-12-19 Transition Tuan Peters 1.2.840.114 [id number] Univers 00:00:00 00:00:00 of Care Ruchi Braswell [id number] it [place] [id number] [facility] 403 Branch 2020-12-11 2020-12-17 [facility] Paco Lacey 1.2.840.1 [id number] 05:11:00 16:00:00 Encounter Vika Harrison [place] [id number] [facility] 4.2.7.2.686 [id number] [facility] 2020-12-11 2020-12-17 [facility] Paco Lacey 1.2.840.1 [id number] [facility] 05:11:00 16:00:00 Encounter Vika Harrison [place] [id number] [facility] [address] [place] [address] [id number] [facility] 096 Branch 2020-12-11 2020-12-17 Inpatient [address] [facility] [id number] Univers 05:11:00 16:00:00 pepe [facility] 2020-11-16 2020-11-[address] [facility] ERT [id number] [facility] 09:31:00 09:31:00 PACO cantu [facility] 2020-11-11 2020-11-11 Orders Doctor CUI 1.2.840.114 [id number] 00:00:00 00:00:00 Only UnassignedMONIQUE 350.1.13.10 [place] [facility] 4.2.7.2.686 [id number] 2020-11-11 2020-11-11 Orders Doctor CUI 1.2.840.114 [id number] [facility] 00:00:00 00:00:00 Only Unassigned, MONIQUE 350.1.13.10 ity of [place] [facility] 4.2.7.2.686 Jeff as [id number] [address] 2020-11-07 2020-11-07 [facility] [id number] 00:00:00 00:00:00 Angi Lott 350.1.13.10 [place] 4.2.7.2.686 Professio [id number] [address] 2020-11-07 2020-11-07 Telephone [facility] [id number] [facility] 00:00:00 00:00:00 Angi Lott 350.1.13.10 ity of [place] Profess[place] [id number] Sc dic[address] 2020-10-30 2020-10-30 Orders Doctor BASILIA 1.2.840.114 [id number] 00:00:00 00:00:00 Only Unassigned, MONIQUE 350.1.13.10 [place] [facility] 4.2.7.2.686 [id number] [facility] 2020-10-30 2020-10-30 Orders Doctor BASILIA 1.2.840.114 [id number] [facility] 00:00:00 00:00:00 Only Unassigned, MONIQUE 350.1.13.10 ity of [place] [facility]OSPITAL 4.2.7.2.686 Jeff as [id number] [address] 2020-09-26 2020-09-26 Telephone Eliot [facility] 1.2.840.114 [id number] 00:00:00 00:00:00 [facility] [id number] CLINICS 4.2.7.2.686 [id number] [facility] 2020-09-26 2020-09-26 Telephone Eliot [facility] 1.2.840.114 [id number] [facility] 00:00:00 00:00:00 [facility] 350.1.13.10 i ty of CL[place] [id number] [address] 2020-09-01 2020-09-01 Orders Doctor BASILIA 1.2.840.114 [id number] 00:00:00 00:00:00 Only Unassigned, MONIQUE 350.1.13.10 [place] [facility] 4.2.7.2.686 [id number] 2020-09-01 2020-09-01 Orders Doctor BASILIA 1.2.840.114 [id number] Univers 00:00:00 00:00:00 Only Unassigned, MONIQUE 350.1.13.10 ity of [place] [facility] 4.2.7.2.686 Jeff as [id number] [facility] 009 Branch 2020-08-25 2020-08-25 Transition Tuan Peters 1.2.840.114 [id number] 00:00:00 00:00:00 of Care Ruchi Braswell 350.1.13.10 [place] 4.2.7.2.686 [id number] 2020-08-25 2020-08-25 Transition Tuan Peters 1.2.840.114 [id number] Univers 00:00:00 00:00:00 of Care Ruchi Braswell 350.1.13.10 it y of [place]7.2.[place] [id number] [facility] 403 [place] 2020-08-21 2020-08-23 [facility] Ayleen 1.2.840.114 [id number] 01:07:00 18:35:00 Encounter Kelly Monique 350.1.13.10 [facility] 4.2.7.2.686 [id number] [facility] 2020-08-21 2020-08-23 [facility] 1. 2.840.114 [id number] [facility] 01:07:00 18:35:00 Encounter Mukul Gallardo 350.1.13. 10 ity of [facility] 4.2.7.2.686 Jeff as [id number] [address] Results Test Description Test Time Test Comments Results Result Comments Source POCT GLUCOSE (AUTOMATED) 2020-12-17 15:43:35 Test Item Value Reference Range Interpretation Comme nts POCT GLU (test code = 6609679066) 129 mg/dL 70-110 H Lab Interpretation (test code = 30865-6) Abnormal [facility] (NA, K, CL, CO2, GLUCOSE, BUN, CREATININE, CA)2020-12-17 11:45:07 Test Item Value Reference Range Interpretation Comments NA (test code = 137 mmol/L 135-145 4959078661) K (test code = 3.5 mmol/L 3.5-5.0 4165100251) CL (test code = 103 mmol/L 98-108 9074018230) CO2 TOTAL (test code = 26 mmol/L 23-31 6691226253) AGAP (test code = 2-16 6060441244) BUN (test code = 11 mg/dL 7-23 0683662029) GLUCOSE (test code = 175 mg/dL 70-110 H 9566086473) CREATININE (test code = 0.62 mg/dL 0.60-1.25 0327371846) CALCIUM (test code = 9.0 mg/dL 8.6-10.6 9917193602) eGFR Calculation mL/min/1.73m2 (Non-) (test code = 0035282959) eGFR Calculation mL/min/1.73m2 () (test code = 1570613521) JAMES (test code = JAMES) Association of [...] tests). Lab Interpretation Abnormal (test code = 06963-5) [facility] WITH [id number] 11:07:27 Test Item Value Reference Range Interpretation [...] RDW-SD (test code = 45.2 fL 38.5-51.6 19459-0) RDW-CV (test code = 16.9 % 12.1-15.4 H 788-0) PLT (test code = See_Comment H [Automated 777-3) message] The sy stem which generated this result transmitted reference range : 150 - 328 10*3/ ?L. The reference r torito was not used to interpret this result as normal/abnormal . MPV (test code = 8.1 fL 9.8-13.0 L 65274-0) NRBC/100 WBC (test See_Comment [Automat ed code = 2531008446) message] The system which generated this result transmitted reference range : 0.0 - 10.0 /100 WBCs. The refer ence range was not u sed to interpret th is result as normal/abnormal . NRBC x10^3 (test code <0.01 See_Comment [Auto mated = 4161305675) message] The s ystem which generated this result transmitted reference range : 10*3/?L. The reference range was not used to interpret this result as normal/abnormal . GRAN MAT (NEUT) % 72.8 % (test code = 770-8) IMM GRAN % (test code 0.60 % = 9446402308) LYMPH % (test code = 18.4 % 736-9) MONO % (test code = 5.7 % 5905-5) EOS % (test code = 1.8 % 713-8) BASO % (test code = 0.7 % 706-2) GRAN MAT x10^3(ANC) 8.23 10*3/uL 1.99-6.95 H (test code = 2816834447) IMM GRAN x10^3 (test 0.07 10*3/uL 0.00-0.06 H code = 9223300861) LYMPH x10^3 (test code 2.08 10*3/uL 1.09-3.23 = 731-0) MONO x10^3 (test code 0.65 10*3/uL 0.36-1.02 = 742-7) EOS x10^3 (test code = 0.20 10*3/uL 0.06-0.53 711-2) BASO x10^3 (test code 0.08 10*3/uL 0.01-0.09 = 704-7) Lab Interpretation Abnormal (test code = 01784-6) [facility]2020-12-17 06:03:38 Test Item Value Reference Range Interpretation Comments POCT GLU (test code = 6982668445) 75 mg/dL 70-110 Lab Interpretation (test code = Normal 94271-2) [facility]6, [id number] 00:01:00 Test Item Value Reference Range Interpretation Comments VIT B6 (test code = 13.1 nmol/L 20.0-125.0 L INTERPRE TIVE 55862-8) INFORMATION: Vi tamin B6 (Pyridoxal 5-Phosphate) Pyridoxal [...] intended for cl inical purposes.Perfor med By: [id number] [place] [address] [id number] Director: Namrata Klein MD Lab Interpretation Abnormal (test code = 78239-7) [facility] TIBIA FIBULA 2 VW [id number] 23:57:09 Tricompartmental knee joint osteoarthrosis.XR TIBIA FIBULA [...] Interpretation Comments POCT GLU (test code = 0876974723) 114 mg/dL 70-110 H Lab Interpretation (test code = Abnormal 22027-4) [facility] GLUCOSE (AUTOMATED)2020-12-16 20:12:00 Test Item Value Reference Range Interpretation Comments POCT GLU (test code = 3248746098) 105 mg/dL 70-110 Lab Interpretation (test code = Normal 99573-3) [facility] GLUCOSE (AUTOMATED)2020-12-16 14:44:00 Test Item Value Reference Range Interpretation Comments POCT GLU (test code = 8037663834) 153 mg/dL 70-110 H Lab Interpretation (test code = Abnormal 23380-6) [facility] METABOLIC PANEL (NA, K, CL, CO2, GLUCOSE, BUN, CREATININE, CA)2020-12-16 14:23:00 Test Item Value Reference Range Interpretation Comments NA (test code = 138 mmol/L 135-145 5670847716) K (test code = 3.4 mmol/L 3.5-5.0 L 0962988595) CL (test code = 100 mmol/L 98-108 1280362906) CO2 TOTAL (test code = 31 mmol/L 23-31 4682272805) AGAP (test code = 2-16 5100213097) BUN (test code = 11 mg/dL 7-23 6378998279) GLUCOSE (test code = 162 mg/dL 70-110 H 3131333340) CREATININE (test code = 0.64 mg/dL 0.60-1.25 9946426649) CALCIUM (test code = 8.9 mg/dL 8.6-10.6 3491660816) eGFR Calculation mL/min/1.73m2 (Non-) (test code = 8873725140) eGFR Calculation mL/min/1.73m2 () (test code = 6256097618) JAMES (test code = JAMES) Association of [...] tests). Lab Interpretation Abnormal (test code = 55504-8) [facility] WITH [id number] 14:05:00 Test Item Value Reference Range Interpretation [...] RDW-SD (test code = 45.4 fL 38.5-51.6 89787-3) RDW-CV (test code = 17.0 % 12.1-15.4 H 788-0) PLT (test code = See_Comment H [Automated 777-3) message] The sy stem which generated this result transmitted reference range : 150 - 328 10*3/ ?L. The reference r torito was not used to interpret this result as normal/abnormal . MPV (test code = 8.0 fL 9.8-13.0 L 54437-9) NRBC/100 WBC (test See_Comment [Automat ed code = 6808540287) message] The system which generated this result transmitted reference range : 0.0 - 10.0 /100 WBCs. The refer ence range was not u sed to interpret th is result as normal/abnormal . NRBC x10^3 (test code <0.01 See_Comment [Auto mated = 3628362797) message] The s ystem which generated this result transmitted reference range : 10*3/?L. The reference range was not used to interpret this result as normal/abnormal . GRAN MAT (NEUT) % 70.0 % (test code = 770-8) IMM GRAN % (test code 0.70 % = 0401567438) LYMPH % (test code = 20.5 % 736-9) MONO % (test code = 7.1 % 5905-5) EOS % (test code = 1.0 % 713-8) BASO % (test code = 0.7 % 706-2) GRAN MAT x10^3(ANC) 9.44 10*3/uL 1.99-6.95 H (test code = 9027821562) IMM GRAN x10^3 (test 0.09 10*3/uL 0.00-0.06 H code = 0946262599) LYMPH x10^3 (test code 2.76 10*3/uL 1.09-3.23 = 731-0) MONO x10^3 (test code 0.96 10*3/uL 0.36-1.02 = 742-7) EOS x10^3 (test code = 0.13 10*3/uL 0.06-0.53 711-2) BASO x10^3 (test code 0.10 10*3/uL 0.01-0.09 H = 704-7) Lab Interpretation Abnormal (test code = 45643-8) [facility] - [facility] # [id number] 13:01:00 Test Item Value Reference Range Interpretation Comments Blood Culture-Aerobic No organisms No growth Previo us (test code = 35545-2) isolated prelim inary verified result was Culture In Progress on 12/11/2020 at 100 1 CSTPrevious preliminary verified result was No growth a t 24 hours on 12/12/2020 at 070 1 CSTPrevious preliminary verified result was No growth a t 48 hours on 12/13/2020 at 070 1 CSTPrevious preliminary verified result was No growth a t 72 hours on 12/14/2020 at 070 1 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 Blood No organisms No growth Previous Culture-Anaerobic isolated preliminar y (test code = 87830-4) verifi ed result was Culture In Progress on 12/11/2020 at 100 1 CSTPrevious preliminary verified result was No growth a t 24 hours on 12/12/2020 at 070 1 CSTPrevious preliminary verified result was No growth a t 48 hours on 12/13/2020 at 070 1 CSTPrevious preliminary verified result was No growth a t 72 hours on 12/14/2020 at 070 1 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 Lab Interpretation Normal (test code = 64061-2) [facility] Culture - Peripheral # [id number] 13:01:00 Test Item Value Reference Range Interpretation Comments Blood Culture-Aerobic No organisms No growth Previo us (test code = 78104-5) isolated prelim inary verified result was Culture In Progress on 12/11/2020 at 100 1 CSTPrevious preliminary verified result was No growth a t 24 hours on 12/12/2020 at 070 1 CSTPrevious preliminary verified result was No growth a t 48 hours on 12/13/2020 at 070 1 CSTPrevious preliminary verified result was No growth a t 72 hours on 12/14/2020 at 070 1 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 Blood No organisms No growth Previous Culture-Anaerobic isolated preliminar y (test code = 13216-6) verifi ed result was Culture In Progress on 12/11/2020 at 100 1 CSTPrevious preliminary verified result was No growth a t 24 hours on 12/12/2020 at 070 1 CSTPrevious preliminary verified result was No growth a t 48 hours on 12/13/2020 at 070 1 CSTPrevious preliminary verified result was No growth a t 72 hours on 12/14/2020 at 070 1 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 Lab Interpretation Normal (test code = 17166-2) [facility] GLUCOSE (AUTOMATED)2020-12-16 04:01:00 Test Item Value Reference Range Interpretation Comments POCT GLU (test code = 6419049094) 156 mg/dL 70-110 H Lab Interpretation (test code = Abnormal 21868-3) [facility]2020-12-16 00:24:00 Test Item Value Reference Range Interpretation Comments POCT GLU (test code = 7311875441) 115 mg/dL 70-110 H Lab Interpretation (test code = Abnormal 43426-4) [facility] CHEST PULMONARY [id number] 23:34:55No pulmonary emboli. No interval change in [...] stableappearance of intra and extrahepatic biliary ductal dilatation.[facility] GLUCOSE (AUTOMATED)2020-12-15 19:28:00 Test Item Value Reference Range Interpretation Comments POCT GLU (test code = 6872027481) 140 mg/dL 70-110 H Lab Interpretation (test code = Abnormal 90559-5) [facility] 15:26:00 Test Item Value Reference Range Interpretation Comments MAGNESIUM (test code = 0800536451) 2.2 mg/dL 1.7-2.4 Lab Interpretation (test code = Normal 29935-4) [facility] GLUCOSE (AUTOMATED)2020-12-15 15:15:00 Test Item Value Reference Range Interpretation Comments POCT GLU (test code = 9943123196) 181 mg/dL 70-110 H Lab Interpretation (test code = Abnormal 32040-7) [facility] METABOLIC PANEL (NA, K, CL, CO2, GLUCOSE, BUN, CREATININE, CA)2020-12-15 13:07:00 Test Item Value Reference Range Interpretation Comments NA (test code = 136 mmol/L 135-145 3019598458) K (test code = 3.6 mmol/L 3.5-5.0 0834513960) CL (test code = 96 mmol/L 98-108 L 5416427111) CO2 TOTAL (test code = 29 mmol/L 23-31 5695219470) AGAP (test code = 2-16 3619426166) BUN (test code = 12 mg/dL 7-23 8401463056) GLUCOSE (test code = 183 mg/dL 70-110 H 8703469917) CREATININE (test code = 0.70 mg/dL 0.60-1.25 9851893733) CALCIUM (test code = 9.2 mg/dL 8.6-10.6 2229631071) eGFR Calculation mL/min/1.73m2 (Non-) (test code = 7995254544) eGFR Calculation mL/min/1.73m2 () (test code = 1023373940) JAMES (test code = JAMES) Association of [...] tests). Lab Interpretation Abnormal (test code = 58181-1) [facility] WITH [id number] 12:32:00 Test Item Value Reference Range Interpretation Comments WBC (test code = See_Comment H [Automated 2290-2) message] The system which generated this result transmit ronan reference range : 4.20 - 10.70 10*3/?L. The reference range was not used to interpret this result as normal/abnormal . RBC (test code = See_Comment H [Automated 649-8) message] The system which generated this result [...] RDW-SD (test code = 44.4 fL 38.5-51.6 42738-1) RDW-CV (test code = 17.7 % 12.1-15.4 H 788-0) PLT (test code = See_Comment H [Automated 777-3) message] The system which generated this result transmit ronan reference range : 150 - 328 10*3/ ?L. The reference range was not u sed to interpret th is result as normal/abnormal . MPV (test code = 8.1 fL 9.8-13.0 L 06391-5) NRBC/100 WBC (test See_Comment [Automat ed code = 0179272873) message] The system which generated this result transmit ronan reference range : 0.0 - 10.0 /100 WBCs. The reference range was not used to interpret this result as normal/abnormal . NRBC x10^3 (test code <0.01 See_Comment [Auto mated = 6375148482) message] The system which generated this result transmit ronan reference range : 10*3/?L. The reference range was not used to interpret this result as normal/abnormal . GRAN MAT (NEUT) % 74.5 % (test code = 770-8) IMM GRAN % (test code 0.70 % = 6602331523) LYMPH % (test code = 17.4 % 736-9) MONO % (test code = 6.8 % 5905-5) EOS % (test code = 0.2 % 713-8) BASO % (test code = 0.4 % 706-2) GRAN MAT x10^3(ANC) 11.99 10*3/uL 1.99-6.95 H (test code = 9012213594) IMM GRAN x10^3 (test 0.11 10*3/uL 0.00-0.06 H code = 8082293259) LYMPH x10^3 (test code 2.80 10*3/uL 1.09-3.23 = 731-0) MONO x10^3 (test code 1.10 10*3/uL 0.36-1.02 H = 742-7) EOS x10^3 (test code = 0.03 10*3/uL 0.06-0.53 L 711-2) BASO x10^3 (test code 0.06 10*3/uL 0.01-0.09 = 704-7) Lab Interpretation Abnormal (test code = 96574-1) [facility] GLUCOSE (AUTOMATED)2020-12-15 04:16:00 Test Item Value Reference Range Interpretation Comments POCT GLU (test code = 4942633471) 200 mg/dL 70-110 H Lab Interpretation (test code = Abnormal 05922-6) [facility]1 (THIAMINE), WHOLE [id number] 00:30:00 Test Item Value Reference Range Interpretation Comments Vitamin B1, Whole 136 nmol/L 70-180 INTERPRETI VE INFORMATION: Blood (test code = Vitamin B 1, Whole Blood 01452-2) This assay júnior ures the concentration o [...] clinical purposes.Perfor med By: [facility] [address] [place], [place] [address]E aboratory Director: Namrata Klein MD [facility] GLUCOSE (AUTOMATED)2020-12-14 23:35:00 Test Item Value Reference Range Interpretation Comments POCT GLU (test code = 5316958343) 151 mg/dL 70-110 H Lab Interpretation (test code = Abnormal 28894-4) [facility] GLUCOSE (AUTOMATED)2020-12-14 19:19:00 Test Item Value Reference Range Interpretation Comments POCT GLU (test code = 0737877374) 193 mg/dL 70-110 H Lab Interpretation (test code = Abnormal 35943-5) [facility] GLUCOSE (AUTOMATED)2020-12-14 15:22:00 Test Item Value Reference Range Interpretation Comments POCT GLU (test code = 7955961901) 221 mg/dL 70-110 H Lab Interpretation (test code = Abnormal 08971-9) [facility] GLUCOSE (AUTOMATED)2020-12-14 02:37:00 Test Item Value Reference Range Interpretation Comments POCT GLU (test code = 6045365472) 210 mg/dL 70-110 H Lab Interpretation (test code = Abnormal 58708-4) [facility] GLUCOSE (AUTOMATED)2020-12-13 23:33:00 Test Item Value Reference Range Interpretation Comments POCT GLU (test code = 2993057912) 182 mg/dL 70-110 H Lab Interpretation (test code = Abnormal 70348-8) [facility] GLUCOSE (AUTOMATED)2020-12-13 18:09:00 Test Item Value Reference Range Interpretation Comments POCT GLU (test code = 4783857564) 150 mg/dL 70-110 H Lab Interpretation (test code = Abnormal 76120-0) [facility] METABOLIC PANEL (NA, K, CL, CO2, GLUCOSE, BUN, CREATININE, CA)2020-12-13 16:27:00 Test Item Value Reference Range Interpretation Comments NA (test code = 136 mmol/L 135-145 2545995876) K (test code = 3.7 mmol/L 3.5-5.0 6067966454) CL (test code = 96 mmol/L 98-108 L 2445005120) CO2 TOTAL (test code = 29 mmol/L 23-31 0354087620) AGAP (test code = 2-16 1240976069) BUN (test code = 6 mg/dL 7-23 L 2034003294) GLUCOSE (test code = 212 mg/dL 70-110 H 3606813868) CREATININE (test code = 0.61 mg/dL 0.60-1.25 9850191941) CALCIUM (test code = 9.5 mg/dL 8.6-10.6 7517075815) eGFR Calculation mL/min/1.73m2 (Non-) (test code = 3540634475) eGFR Calculation mL/min/1.73m2 () (test code = 8363731289) JAMES (test code = JAMES) Association of [...] tests). Lab Interpretation Abnormal (test code = 24774-3) [facility] WITH [id number] 16:10:00 Test Item Value Reference Range Interpretation Comments WBC (test code = See_Comment H [Automated 1290-2) message] The sy stem which generated this result transmitted reference range : 4.20 - 10.70 10*3/?L. The reference range was not used to interpret this result as normal/abnormal . RBC (test code = See_Comment H [Automated 279-8) message] The sy stem which generated this [...] RDW-SD (test code = 43.3 fL 38.5-51.6 30786-4) RDW-CV (test code = 16.2 % 12.1-15.4 H 788-0) PLT (test code = See_Comment H [Automated 777-3) message] The sy stem which generated this result transmitted reference range : 150 - 328 10*3/ ?L. The reference r torito was not used to interpret this result as normal/abnormal . MPV (test code = 8.2 fL 9.8-13.0 L 39757-4) NRBC/100 WBC (test See_Comment [Automat ed code = 3035084808) message] The system which generated this result transmitted reference range : 0.0 - 10.0 /100 WBCs. The refer ence range was not u sed to interpret th is result as normal/abnormal . NRBC x10^3 (test code <0.01 See_Comment [Auto mated = 9023091571) message] The s ystem which generated this result transmitted reference range : 10*3/?L. The reference range was not used to interpret this result as normal/abnormal . GRAN MAT (NEUT) % 86.2 % (test code = 770-8) IMM GRAN % (test code 0.70 % = 4127424951) LYMPH % (test code = 10.2 % 736-9) MONO % (test code = 2.5 % 5905-5) EOS % (test code = 0.1 % 713-8) BASO % (test code = 0.3 % 706-2) GRAN MAT x10^3(ANC) 9.61 10*3/uL 1.99-6.95 H (test code = 0759559516) IMM GRAN x10^3 (test 0.08 10*3/uL 0.00-0.06 H code = 2972237271) LYMPH x10^3 (test code 1.14 10*3/uL 1.09-3.23 = 731-0) MONO x10^3 (test code 0.28 10*3/uL 0.36-1.02 L = 742-7) EOS x10^3 (test code = <0.03 0.06-0.53 L 711-2) BASO x10^3 (test code 0.03 10*3/uL 0.01-0.09 = 704-7) Lab Interpretation Abnormal (test code = 29020-0) [facility]2020-[facility]-13 14:16:00 Test Item Value Reference Range Interpretation Comments POCT GLU (test code = 0801310090) 236 mg/dL 70-110 H Lab Interpretation (test code = Abnormal 54511-2) [facility] COVID [id number] 04:58:00COVID DMT InterpretationInterpretation/Recommendations: Molecular NAAT Tests for [...] medical record. [facility] SERVICESC[facility] LdvtoleSCNW-DwW-2 Rapid ID NOW (no units) ? ? Date ? Value ? 12/11/2020 ? Not Detected ? ? ? 11/16/2020 ? Not Detected ? ? ? 08/21/2020 ? Not Detected ? [facility] 2020-12-13 03:11:00 Test Item Value Reference Range Interpretation Comments POCT GLU (test code = 7185421534) 171 mg/dL 70-110 H Lab Interpretation (test code = Abnormal 16941-7) [facility] GLUCOSE (AUTOMATED)2020-12-13 00:00:00 Test Item Value Reference Range Interpretation Comments POCT GLU (test code = 5466898914) 118 mg/dL 70-110 H Lab Interpretation (test code = Abnormal 92703-8) [facility] GLUCOSE (AUTOMATED)2020-12-12 20:29:00 Test Item Value Reference Range Interpretation Comments POCT GLU (test code = 2686485359) 173 mg/dL 70-110 H Lab Interpretation (test code = Abnormal 32782-9) [facility] ABDOMEN [id number] 19:56:17 1. ?Hepatic steatosis. However, limited evaluation [...] main portal veinwasevaluated with color Doppler imaging. Concrete Pourer images were obtainedfor the record. COMPARISON: Ultrasound [...] normal where visualized. SPLEEN:No images were obtained. [facility], Radiant Results Inft User - 12/12/2020 1:57 PM CSTEXAM: US ABDOMEN LIMITEDHISTORY: 70 years-old male with RUQ ultrasound to assess for common bileduct dilation .TECHNIQUE: Limited abdominal ultrasound focused on the liver, biliarysystem, pancreas, and spleen was performed. The main portal vein wasevaluated with color Doppler imaging. Concrete Pourer images wereobtainedfor the record.COMPARISON: Ultrasound abdomen 11/17/2028. [...] reviewed this study and agree with the abovereport.[facility]2020-12-12 19:24:00 Test Item Value Reference Range Interpretation Comments POCT GLU (test code = 0933108076) 230 mg/dL 70-110 H Lab Interpretation (test code = Abnormal 16683-0) [facility] CHEST 1 [id number] 15:16:46 Low lung volumes with mild perihilar [...] reviewed this study and agree with theabove report.[facility]2020-12-12 14:34:00 Test Item Value Reference Range Interpretation Comments POCT GLU (test code = 5444488593) 225 mg/dL 70-110 H Lab Interpretation (test code = Abnormal 77615-7) [facility]andURINE [id number] 13:28:00 Test Item Value Reference Range Interpretation Comments URINE CULTURE (test < 10,000 CFU/mL mixed code = 630-4) aerobic organisms - suggests endogenous microbial contamination [facility] (NA, K, CL, CO2, GLUCOSE, BUN, CREATININE, CA)2020-12-12 10:05:00 Test Item Value Reference Range Interpretation Comments NA (test code = 136 mmol/L 135-145 7597785989) K (test code = 3.5 mmol/L 3.5-5.0 6242221781) CL (test code = 100 mmol/L 98-108 8694635608) CO2 TOTAL (test code = 31 mmol/L 23-31 9966158022) AGAP (test code = 2-16 9091037201) BUN (test code = 7 mg/dL 7-23 0685530721) GLUCOSE (test code = 259 mg/dL 70-110 H 6132499360) CREATININE (test code = 0.63 mg/dL 0.60-1.25 4587866408) CALCIUM (test code = 8.5 mg/dL 8.6-10.6 L 9139409315) eGFR Calculation mL/min/1.73m2 (Non-) (test code = 4334190527) eGFR Calculation mL/min/1.73m2 () (test code = 2742496314) JAMES (test code = JAMES) Association of [...] tests). Lab Interpretation Abnormal (test code = 48778-3) [facility]andMagnesium [id number] 10:05:00 Test Item Value Reference Range Interpretation Comments MAGNESIUM (test code = 8003573077) 1.9 mg/dL 1.7-2.4 Lab Interpretation (test code = Normal 67357-7) [facility] with [id number] 09:48:00 Test Item Value Reference Range Interpretation Comments WBC (test code = See_Comment [Automated 5502-2) message] The sy stem which generated this [...] RDW-SD (test code = 46.0 fL 38.5-51.6 35676-3) RDW-CV (test code = 16.1 % 12.1-15.4 H 788-0) PLT (test code = See_Comment H [Automated 777-3) message] The sy stem which generated this result transmitted reference range : 150 - 328 10*3/ ?L. The reference r torito was not used to interpret this result as normal/abnormal . MPV (test code = 8.6 fL 9.8-13.0 L 59344-3) NRBC/100 WBC (test See_Comment [Automat ed code = 9181775750) message] The system which generated this result transmitted reference range : 0.0 - 10.0 /100 WBCs. The refer ence range was not u sed to interpret th is result as normal/abnormal . NRBC x10^3 (test code <0.01 See_Comment [Auto mated = 8785540713) message] The s ystem which generated this result transmitted reference range : 10*3/?L. The reference range was not used to interpret this result as normal/abnormal . GRAN MAT (NEUT) % 70.2 % (test code = 770-8) IMM GRAN % (test code 0.30 % = 4782965720) LYMPH % (test code = 18.8 % 736-9) MONO % (test code = 5.0 % 5905-5) EOS % (test code = 5.2 % 713-8) BASO % (test code = 0.5 % 706-2) GRAN MAT x10^3(ANC) 6.05 10*3/uL 1.99-6.95 (test code = 9164642324) IMM GRAN x10^3 (test 0.03 10*3/uL 0.00-0.06 code = 2953792495) LYMPH x10^3 (test code 1.62 10*3/uL 1.09-3.23 = 731-0) MONO x10^3 (test code 0.43 10*3/uL 0.36-1.02 = 742-7) EOS x10^3 (test code = 0.45 10*3/uL 0.06-0.53 711-2) BASO x10^3 (test code 0.04 10*3/uL 0.01-0.09 = 704-7) Lab Interpretation Abnormal (test code = 28893-3) [facility]2020-12-12 03:42:00 Test Item Value Reference Range Interpretation Comments POCT GLU (test code = 196 mg/dL 70-110 H Notifi ed Provider 9267457094) Lab Interpretation (test Abnormal code = 76021-1) [facility]and[facility]OL[facility]2021-[facility] 02:24:00 Test Item Value Reference Range Interpretation Comments FOLATE SER (test code = 5414222729) 5.8 ng/mL 3.0-20.0 Lab Interpretation (test code = Normal 83228-4) [facility]andVITAMIN B12, [id number] 00:55:00 Test Item Value Reference Range Interpretation Comments VIT B12 (test code = 844 pg/mL 240-930 3892855324) JAMES (test code = JAMES) Biotin has been reported to cause a positive bias, interpret results relative to patient's use of biotin. Lab Interpretation (test Normal code = 40893-4) [facility] GLUCOSE (AUTOMATED)2020-12-12 00:14:00 Test Item Value Reference Range Interpretation Comments POCT GLU (test code = 4954995712) 164 mg/dL 70-110 H Lab Interpretation (test code = Abnormal 49441-6) [facility]andCREATINE [id number] 23:42:00 Test Item Value Reference Range Interpretation Comments CK (test code = 9451630602) <20 33-194 L Lab Interpretation (test code = Abnormal 95930-2) [facility]andTHYROID STIMULATING [id number] 23:17:00 Test Item Value Reference Range Interpretation Comments TSH (test code = See_Comment Biotin has been 9380664774) reported to cau se a negative bias, interpret resul ts relative to johnny bills's use of biotin. [Automated mess age] The system [employer] generated this result transmitted ref erence range: 0.45 - 4 .70 mIU/L. The refe rence range was not u sed to interpret this result as normal/abnor mal. Lab Interpretation (test Normal code = 09360-9) [facility] HIPS 3 VW [id number] 21:41:53No appreciable fracture lines. RL: 6200 ICAL [...] osseous erosions.IMPRESSIONNo appreciable fracture lines.RL: 6200 [facility]PROCALCITONIN2021-[facility]-01 20:00:00 Test Item Value Reference Range Interpretation Comments Procalcitonin (test 0.13 ng/mL <0.07 H code = 8387813683) JAMES (test code = JAMES) INTERPRETATION OF [...] For further information please refer to:[email or web address] Lab Interpretation Abnormal (test code = 95239-7) [facility]2020-12-11 19:07:00 Test Item Value Reference Range Interpretation Comments POCT GLU (test code = 4239884940) 274 mg/dL 70-110 H Lab Interpretation (test code = Abnormal 73142-7) [facility]2021-[facility]-01 18:31:00 Test Item Value Reference Range Interpretation Comments MAGNESIUM (test code = 1039381844) 1.9 mg/dL 1.7-2.4 Lab Interpretation (test code = Normal 90863-5) [facility]andFERRITIN [id number] 18:31:00 Test Item Value Reference Range Interpretation Comments FERRITIN (test code = 178.0 ng/mL 18.0-464.0 1257864999) JAMES (test code = JAMES) Biotin has been reported to cause a negative bias, interpret results relative to patient's use of biotin. Lab Interpretation (test Normal code = 05824-4) [facility] HEAD WO [id number] 14:36:47 No acute intracranial abnormality. Dilated ventricles [...] reviewed this study and agree with the abovereport.[facility]and[facility]INALYSIS2021-[facility]-01 14:28:00 Test Item Value Reference Range Interpretation Comments APPEARANCE (test code = Clear Clear 1228574341) COLOR (test code = Yellow Yellow 8803446219) PH (test code = 4.8-8.0 9400198291) SP GRAVITY (test code = 1.003-1.030 6024316375) GLU U QUAL (test code = 500 mg/dL Normal A 8908299880) BLOOD (test code = Negative Negative 0069937227) KETONES (test code = 5 mg/dL Negative A 2637823979) PROTEIN (test code = Negative Negative 2887-8) UROBILIN (test code = Normal Normal 0474696693) BILIRUBIN (test code = Negative Negative 5925519379) NITRITE (test code = Negative Negative 5659694738) LEUK RYAN (test code = Negative Negative 7086763359) RBC/HPF (test code = See_Comment [Autom ated message] 4762793143) The system [employer] generated this result transmit ronan reference range : 0 - 3 HPF. The refe rence range was not u sed to interpret th is result as normal/abnormal . WBC/HPF (test code = See_Comment [Autom ated message] 8321277955) The system [employer] generated this result transmit ronan reference range : 0 - 5 HPF. The refe rence range was not u sed to interpret th is result as normal/abnormal . BACTERIA (test code = Negative Negative 8679111812) MUCOUS (test code = Slight Negative LPF A 3904785156) SQ EPITH (test code = HPF 8661576174) Lab Interpretation (test Abnormal code = 86970-4) [facility]ID [facility]2020-12-11 13:10:00 Test Item Value Reference Range Interpretation Comments SARS-CoV-2 Rapid ID NOW Not Detected Not Detected (test code = 41768-0) JAMES (test code = JAMES) ID NOW COVID-19 Assay is an isothermal nucleic acid amplification test intended for the qualitative detection of nucleic acid from SARS-CoV-2 viral RNA in nasopharyngeal (MEDIA RELATIONS MANAGER) specimens. It is used under Emergency [...] indicated. Lab Interpretation Normal (test code = 05126-0) [facility]. METABOLIC PANEL (98040)2020-12-11 12:29:00 Test Item Value Reference Range Interpretation Comments NA (test code = 136 mmol/L 135-145 5061487462) K (test code = 3.5 mmol/L 3.5-5.0 4724457707) CL (test code = 95 mmol/L 98-108 L 9028926658) CO2 TOTAL (test code = 35 mmol/L 23-31 H 0101634440) AGAP (test code = 2-16 5927186613) BUN (test code = 9 mg/dL 7-23 2691997233) GLUCOSE (test code = 329 mg/dL 70-110 H 9794010484) CREATININE (test code = 0.72 mg/dL 0.60-1.25 0070639558) TOTAL BILI (test code = 0.6 mg/dL 0.1-1.1 1111233753) CALCIUM (test code = 9.0 mg/dL 8.6-10.6 0031200250) T PROTEIN (test code = 6.8 g/dL 6.3-8.2 3731389145) ALBUMIN (test code = 3.8 g/dL 3.5-5.0 4493603111) ALK PHOS (test code = 288 U/L 34-122 H 4689034741) ALTv (test code = 46 U/L 5-50 1742-6) AST(SGOT) (test code = 38 U/L 13-40 6777952694) eGFR Calculation mL/min/1.73m2 (Non-) (test code = 3839556263) eGFR Calculation mL/min/1.73m2 () (test code = 4088263401) JAMES (test code = JAMES) Association of [...] tests). Lab Interpretation Abnormal (test code = 77601-8) [facility]and[facility] Whole [id number] 12:23:00 Test Item Value Reference Range Interpretation Comments LACTIC ACID (test code = 2.09 mmol/L 0.50-2.20 7488757490) Lab Interpretation (test code = Normal 61536-7) [facility] WITH [id number] 12:17:00 Test Item Value Reference Range Interpretation Comments WBC (test code = See_Comment H [Automated 5790-2) message] The sy stem which generated this result transmitted reference range : 4.20 - 10.70 10*3/?L. The reference range was not used to interpret this result as normal/abnormal . RBC (test code = See_Comment [Automated 9-8) message] The sy stem which [...] RDW-SD (test code = 44.9 fL 38.5-51.6 52087-0) RDW-CV (test code = 15.9 % 12.1-15.4 H 788-0) PLT (test code = See_Comment H [Automated 777-3) message] The sy stem which generated this result transmitted reference range : 150 - 328 10*3/ ?L. The reference r torito was not used to interpret this result as normal/abnormal . MPV (test code = 8.3 fL 9.8-13.0 L 16044-9) NRBC/100 WBC (test See_Comment [Automat ed code = 7724364584) message] The system which generated this result transmitted reference range : 0.0 - 10.0 /100 WBCs. The refer ence range was not u sed to interpret th is result as normal/abnormal . NRBC x10^3 (test code <0.01 See_Comment [Auto mated = 9575365816) message] The s ystem which generated this result transmitted reference range : 10*3/?L. The reference range was not used to interpret this result as normal/abnormal . GRAN MAT (NEUT) % 77.9 % (test code = 770-8) IMM GRAN % (test code 0.50 % = 3634112340) LYMPH % (test code = 12.2 % 736-9) MONO % (test code = 5.2 % 5905-5) EOS % (test code = 3.7 % 713-8) BASO % (test code = 0.5 % 706-2) GRAN MAT x10^3(ANC) 9.57 10*3/uL 1.99-6.95 H (test code = 8118204818) IMM GRAN x10^3 (test 0.06 10*3/uL 0.00-0.06 code = 4441133634) LYMPH x10^3 (test code 1.50 10*3/uL 1.09-3.23 = 731-0) MONO x10^3 (test code 0.64 10*3/uL 0.36-1.02 = 742-7) EOS x10^3 (test code = 0.46 10*3/uL 0.06-0.53 711-2) BASO x10^3 (test code 0.06 10*3/uL 0.01-0.09 = 704-7) Lab Interpretation Abnormal (test code = 93123-9) [facility] COVID [id number] 18:43:00COVID DMT InterpretationInterpretation/Recommendations: Molecular NAAT Test Results [...] a nasopharyngeal sample, there is approximately a wat-ey-kuclf chance that the patient was infected and [...] aggregate data pooled from the [facility] medical recordincluding both current and prior COVID-19 related testing results for the following tests offered atour institution:A. Tests for the Identification of SARS-CoV-2 RNA:SARS-CoV-2 PCR assays including Wilmer Aptima, Wilmer Fusion, Barrett RealTime, and CrossTx Xpert Xpress. SARS-CoV-2 Rapid ID NOW by the ID NOW assay. ? B. Tests for the Identification of SARS-CoV-2 Antibodies: Chemiluminescent immunoassays including Access SARS-CoV-2 IgM (DXI 600), VITROS Dedv-FJCB-CaR-2 IgG (Vitros 5600 and Vitros 3600), and Barrett SARS-CoV-2 IgG (METAL WASHING MACHINE OPERATOR I System). These interpretation comments assume that only the above testing was utilized and that the approved acceptable specimen type(s) were used for a given test. These interpretations are autopopulated into [employer] based on computerized algorithms matching an interpretation [...] of [facility]'s Rapid ID NOW testing platform is analogous [...] pathogen panel may be beneficialin this setting. [facility] LABORATORY SERVICESCOVID UtnjuwmXDFT-HrX-1 Rapid ID NOW (no units) ? ? Date ? Value ? 08/21/2020 ? Not Detected ? [facility]2020-08-23 18:25:00 Test Item Value Reference Range Interpretation Comments POCT GLU (test code = 0354236256) 297 mg/dL 70-110 H Lab Interpretation (test code = Abnormal 36598-8) [facility] GLUCOSE (AUTOMATED)2020-08-23 14:25:00 Test Item Value Reference Range Interpretation Comments POCT GLU (test code = 9451715685) 181 mg/dL 70-110 H Lab Interpretation (test code = Abnormal 05187-7) [facility] Metabolic Panel (NA, K, CL, CO2, GLUCOSE, BUN, CREATININE, CA)2020-08-23 11:45:00 Test Item Value Reference Range Interpretation Comments NA (test code = 132 mmol/L 135-145 L 8621223170) K (test code = 4.0 mmol/L 3.5-5 6893314907) CL (test code = 96 mmol/L 98-108 L 7637407664) CO2 TOTAL (test code = 33 mmol/L 23-31 H 2877164114) AGAP (test code = 2-16 5046056536) BUN (test code = 9 mg/dL 7-23 2341326268) GLUCOSE (test code = 176 mg/dL 70-110 H 2148623344) CREATININE (test code = 0.66 mg/dL 0.6-1.25 9712817858) CALCIUM (test code = 8.5 mg/dL 8.6-10.6 L 8924863270) eGFR Calculation mL/min/1.73m2 (Non-) (test code = 1459938045) eGFR Calculation mL/min/1.73m2 () (test code = 6840749905) JAMES (test code = JAMES) Association of [...] tests). Lab Interpretation Abnormal (test code = 83366-9) [facility]andMagnesium [id number] 11:45:00 Test Item Value Reference Range Interpretation Comments MAGNESIUM (test code = 4824153064) 2.0 mg/dL 1.7-2.4 Lab Interpretation (test code = Normal 71757-6) [facility] with Srachkhkxqis5841-13-05 11:38:00 Test Item Value Reference Range Interpretation [...] RDW-SD (test code = 41.8 fL 38.5-51.6 33117-9) RDW-CV (test code = 14.3 % 12.1-15.4 788-0) PLT (test code = See_Comment H [Automated 777-3) message] The sy stem which generated this result transmitted reference range : 150 - 328 10*3/ ?L. The reference r torito was not used to interpret this result as normal/abnormal . MPV (test code = 8.0 fL 9.8-13 L 79100-9) NRBC/100 WBC (test See_Comment [Automat ed code = 8885624370) message] The system which generated this result transmitted reference range : 0.0 - 10.0 /100 WBCs. The refer ence range was not u sed to interpret th is result as normal/abnormal . NRBC x10^3 (test code <0.01 See_Comment [Auto mated = 5714960210) message] The s ystem which generated this result transmitted reference range : 10*3/?L. The reference range was not used to interpret this result as normal/abnormal . GRAN MAT (NEUT) % 61.5 % (test code = 770-8) IMM GRAN % (test code 2.00 % = 9300782610) LYMPH % (test code = 25.5 % 736-9) MONO % (test code = 6.3 % 5905-5) EOS % (test code = 3.7 % 713-8) BASO % (test code = 1.0 % 706-2) GRAN MAT x10^3(ANC) 5.29 10*3/uL 1.99-6.95 (test code = 8631146507) IMM GRAN x10^3 (test 0.17 10*3/uL 0-0.06 H code = 0266307685) LYMPH x10^3 (test code 2.19 10*3/uL 1.09-3.23 = 731-0) MONO x10^3 (test code 0.54 10*3/uL 0.36-1.02 = 742-7) EOS x10^3 (test code = 0.32 10*3/uL 0.06-0.53 711-2) BASO x10^3 (test code 0.09 10*3/uL 0.01-0.09 = 704-7) Lab Interpretation Abnormal (test code = 10650-7) [facility] GLUCOSE (AUTOMATED)2020-08-23 10:22:00 Test Item Value Reference Range Interpretation Comments POCT GLU (test code = 3416218089) 164 mg/dL 70-110 H Lab Interpretation (test code = Abnormal 23701-3) [facility] GLUCOSE (AUTOMATED)2020-08-23 05:56:00 Test Item Value Reference Range Interpretation Comments POCT GLU (test code = 5256311580) 242 mg/dL 70-110 H Lab Interpretation (test code = Abnormal 81360-0) [facility] GLUCOSE (AUTOMATED)2020-08-23 03:02:00 Test Item Value Reference Range Interpretation Comments POCT GLU (test code = 7936152992) 210 mg/dL 70-110 H Lab Interpretation (test code = Abnormal 69467-2) [facility] GLUCOSE (AUTOMATED)2020-08-22 23:40:00 Test Item Value Reference Range Interpretation Comments POCT GLU (test code = 1008589541) 267 mg/dL 70-110 H Lab Interpretation (test code = Abnormal 10891-5) [facility] GLUCOSE (AUTOMATED)2020-08-22 19:08:00 Test Item Value Reference Range Interpretation Comments POCT GLU (test code = 5738046798) 191 mg/dL 70-110 H Lab Interpretation (test code = Abnormal 43199-8) [facility] GLUCOSE (AUTOMATED)2020-08-22 13:50:00 Test Item Value Reference Range Interpretation Comments POCT GLU (test code = 4094574067) 174 mg/dL 70-110 H Lab Interpretation (test code = Abnormal 11567-0) [facility] [id number] 12:59:00 Test Item Value Reference Range Interpretation Comments URINE CULTURE (test No aerobic growth (< code = 630-4) 1000 CFU/mL) [facility]and[facility] with Mezkvugkpwyj3877-83-67 11:28:00 Test Item Value Reference Range Interpretation [...] RDW-SD (test code = 42.5 fL 38.5-51.6 53486-7) RDW-CV (test code = 14.5 % 12.1-15.4 788-0) PLT (test code = See_Comment H [Automated 777-3) message] The sy stem which generated this result transmitted reference range : 150 - 328 10*3/ ?L. The reference r torito was not used to interpret this result as normal/abnormal . MPV (test code = 8.0 fL 9.8-13 L 90001-2) NRBC/100 WBC (test See_Comment [Automat ed code = 4194479786) message] The system which generated this result transmitted reference range : 0.0 - 10.0 /100 WBCs. The refer ence range was not u sed to interpret th is result as normal/abnormal . NRBC x10^3 (test code <0.01 See_Comment [Auto mated = 6569892844) message] The s ystem which generated this result transmitted reference range : 10*3/?L. The reference range was not used to interpret this result as normal/abnormal . GRAN MAT (NEUT) % 69.1 % (test code = 770-8) IMM GRAN % (test code 2.20 % = 7079000302) LYMPH % (test code = 20.9 % 736-9) MONO % (test code = 5.8 % 5905-5) EOS % (test code = 1.0 % 713-8) BASO % (test code = 1.0 % 706-2) GRAN MAT x10^3(ANC) 6.51 10*3/uL 1.99-6.95 (test code = 2044894572) IMM GRAN x10^3 (test 0.21 10*3/uL 0-0.06 H code = 2350132124) LYMPH x10^3 (test code 1.97 10*3/uL 1.09-3.23 = 731-0) MONO x10^3 (test code 0.55 10*3/uL 0.36-1.02 = 742-7) EOS x10^3 (test code = 0.09 10*3/uL 0.06-0.53 711-2) BASO x10^3 (test code 0.09 10*3/uL 0.01-0.09 = 704-7) BASO STIPPLING (test Present A code = 703-9) BANDS (test code = Increased A 7746888124) TOXIC CHANGES (test Present A code = 803-7) Lab Interpretation Abnormal (test code = 94259-4) [facility] Metabolic Panel (NA, K, CL, CO2, GLUCOSE, BUN, CREATININE, CA)2020-08-22 11:12:00 Test Item Value Reference Range Interpretation Comments NA (test code = 135 mmol/L 135-145 9241184631) K (test code = 3.6 mmol/L 3.5-5 8631285577) CL (test code = 99 mmol/L 98-108 9714509958) CO2 TOTAL (test code = 31 mmol/L 23-31 7500147627) AGAP (test code = 2-16 4205261577) BUN (test code = 9 mg/dL 7-23 9867829918) GLUCOSE (test code = 198 mg/dL 70-110 H 8855289474) CREATININE (test code = 0.72 mg/dL 0.6-1.25 2841838488) CALCIUM (test code = 8.3 mg/dL 8.6-10.6 L 9730095672) eGFR Calculation mL/min/1.73m2 (Non-) (test code = 8776239120) eGFR Calculation mL/min/1.73m2 () (test code = 6689808203) JAMES (test code = JAMES) Association of [...] tests). Lab Interpretation Abnormal (test code = 75688-7) [facility]andMagn[facility] [id number] 11:12:00 Test Item Value Reference Range Interpretation Comments MAGNESIUM (test code = 2832877807) 2.0 mg/dL 1.7-2.4 Lab Interpretation (test code = Normal 18348-9) [facility]and[facility]id Panel (Total Cholesterol, Triglycerides, HDL) - Ushmrxj5045-96-34 11:12:00 Test Item Value Reference Range Interpretation Comments CHOL (test code = 155 mg/dL 120-200 6328930640) HDL (test code = 42 mg/dL >40 0886120196) HDLC RATIO (test code = See_Comment [Au tomated message] 1372249643) The system [employer] generated this result transmit ronan reference range : <=5.0. The refe rence range was not u sed to interpret th is result as normal/abnormal . TRIG (test code = 186 mg/dL 30-170 H 3264801534) LDL CHOL (test code = 76 mg/dL See_Comment [Auto mated message] 32702-4) The system [employer] generated this result transmit ronan reference range : <=160. The refe rence range was not u sed to interpret th is result as normal/abnormal . VLDL (test code = 37 mg/dL 5-60 2464199650) Lab Interpretation (test Abnormal code = 50123-6) [facility]andHEPATIC FUNCTION PANEL (25288) (ALB,T.PRO,BILI T,BU/BC,ALT,AST,ALK PHOS)2020-08-22 11:12:00 Test Item Value Reference Range Interpretation Comments TOTAL BILI (test code = 0753368508) 0.6 mg/dL 0.1-1.1 BILI UNCON (test code = 6442895574) 0.2 mg/dL 0.1-1.1 BILI CONJ (test code = 4137351435) 0.0 mg/dL 0-0.3 T PROTEIN (test code = 0083065735) 6.0 g/dL 6.3-8.2 L ALBUMIN (test code = 9848758793) 2.8 g/dL 3.5-5 L ALK PHOS (test code = 5567416166) 222 U/L 34-122 H ALTv (test code = 1742-6) 27 U/L 5-50 AST(SGOT) (test code = 6142728813) 30 U/L 13-40 Lab Interpretation (test code = Abnormal 36984-1) [facility] GLUCOSE (AUTOMATED)2020-08-22 10:11:00 Test Item Value Reference Range Interpretation Comments POCT GLU (test code = 3019788330) 196 mg/dL 70-110 H Lab Interpretation (test code = Abnormal 49490-9) [facility] GLUCOSE (AUTOMATED)2020-08-22 07:15:00 Test Item Value Reference Range Interpretation Comments POCT GLU (test code = 6486195731) 183 mg/dL 70-110 H Lab Interpretation (test code = Abnormal 20380-7) [facility] GLUCOSE (AUTOMATED)2020-08-22 02:30:00 Test Item Value Reference Range Interpretation Comments POCT GLU (test code = 9354324826) 295 mg/dL 70-110 H Lab Interpretation (test code = Abnormal 83208-7) [facility] GLUCOSE (AUTOMATED)2020-08-21 23:46:00 Test Item Value Reference Range Interpretation Comments POCT GLU (test code = 9158093545) 258 mg/dL 70-110 H Lab Interpretation (test code = Abnormal 60816-5) [facility]andC-REACTIVE [id number] 18:50:00 Test Item Value Reference Range Interpretation Comments CRP (test code = 1844434068) 15.5 mg/dL <0.8 H Lab Interpretation (test code = Abnormal 01531-6) [facility]2020-08-21 18:21:00 Test Item Value Reference Range Interpretation Comments POCT GLU (test code = 0674649479) 297 mg/dL 70-110 H Lab Interpretation (test code = Abnormal 31488-9) [facility]andETHANOL2020-11-09 16:24:00 Test Item Value Reference Range Interpretation Comments ALCOHOL (test code = <10 mg/dL 5062987139) JAMES (test code = Toxic Greater than or JAMES) equal to 80 mg/dL. NOTE: Whole blood values are approximately 10% to 15% lower than serum and plasma. [facility]andGAL[facility]CLC ONLY - URINE DRUG (IMMUNOASSAY) - 4 ER [id number] 15:36:00 Test Item Value Reference Range Interpretation Comments AMPHET (test code = Negative Negative 4298995663) Cocaine Metabolite (test Negative Negative code = 3111395488) OPIATES (test code = Presumptive Positive Negative A 8246404575) THC (test code = Negative Negative 0940475432) JAMES (test code = JAMES) Urine Drug Cutoff Ranges Amphetamine: ? 1,000 ng/mLCocaine: ? 150 ng/mLOpiates: ? 300 ng/mLCannabinoids: ?50 ng/mL The results are to be used only for medical (i.e., treatment) purposes. Unconfirmed screening results must not be used for non-medical purposes (e.g., employment testing, legal testing). Lab Interpretation (test Abnormal code = 00565-7) [facility] ONLY - SYPHILIS IGG/[id number] 15:04:00 Test Item Value Reference Range Interpretation Comments Syphilis IgG/IgM (test Non-reactive Non-reactive code = 65239-7) JAMES (test code = JAMES) Non-reactive - No serologic evidence of T. pallidum infection. Cannot exclude incubating or early syphilis. Submit a second specimen in 2-4 weeks if syphilis is clinically suspected. Equivocal - Further testing to follow. Reactive - Further testing to follow. Lab Interpretation (test Normal code = 37853-0) [facility]ellandUrinalysis2020-11-09 14:52:00 Test Item Value Reference Range Interpretation Comments APPEARANCE (test code = Clear Clear 5007810653) COLOR (test code = Yellow Yellow 2975282969) PH (test code = 4.8-8.0 2397376784) SP GRAVITY (test code = 1.003-1.030 9741725828) GLU U QUAL (test code = 500 mg/dL Normal A 2815474498) BLOOD (test code = Negative Negative 4634499458) KETONES (test code = 20 mg/dL Negative A 1457068830) PROTEIN (test code = Negative Negative 2887-8) UROBILIN (test code = Normal Normal 2481330133) BILIRUBIN (test code = Negative Negative 8030964547) NITRITE (test code = Negative Negative 3085120990) LEUK RYAN (test code = Negative Negative 6762006334) RBC/HPF (test code = <1 See_Comment [Autom ated message] 8506411535) The system [employer] generated this result transmit ronan reference range : 0 - 3 HPF. The refe rence range was not u sed to interpret th is result as normal/abnormal . WBC/HPF (test code = See_Comment [Autom ated message] 8802673308) The system [employer] generated this result transmit ronan reference range : 0 - 5 HPF. The refe rence range was not u sed to interpret th is result as normal/abnormal . BACTERIA (test code = Negative Negative 4486778396) MUCOUS (test code = Slight Negative LPF A 3457039587) Lab Interpretation (test Abnormal code = 92964-2) [facility]ellandACTIVATED PARTIAL THRMPLAS [id number] 13:45:00 Test Item Value Reference Range Interpretation Comments APTT Patient (test code = See_Comment [ Automated message] 3173-2) The system [employer] generated this result transmitted ref erence range: 26 - 36 Seconds. The re ference range was not u sed to interpret this result as normal/abnor mal. Lab Interpretation (test Normal code = 33442-1) [facility]and[facility]2020-08-21 13:45:00 Test Item Value Reference Range Interpretation Comments POCT GLU (test code = 2803030461) 246 mg/dL 70-110 H Lab Interpretation (test code = Abnormal 60088-1) [facility]andHIV 1/2 AG-AB WITH [id number] 12:32:00 Test Item Value Reference Range Interpretation Comments HIV Negative Negative Semi-quantitative (test code = 21799-1) JAMES (test code = Non-reactive for HIV-1 JAMES) antigen and HIV-1/HIV-2 antibodies. ?No laboratory evidence of HIV infection. ?Repeat in 2-4 weeks if acute HIV infection is suspected. [facility]andCBC WITH [id number] 12:18:00 Test Item Value Reference Range Interpretation [...] RDW-SD (test code = 44.4 fL 38.5-51.6 67392-7) RDW-CV (test code = 14.5 % 12.1-15.4 788-0) PLT (test code = See_Comment H [Automated 777-3) message] The sy stem which generated this result transmitted reference range : 150 - 328 10*3/ ?L. The reference r torito was not used to interpret this result as normal/abnormal . MPV (test code = 8.5 fL 9.8-13 L 55957-1) NRBC/100 WBC (test See_Comment [Automat ed code = 6458243315) message] The system which generated this result transmitted reference range : 0.0 - 10.0 /100 WBCs. The refer ence range was not u sed to interpret th is result as normal/abnormal . NRBC x10^3 (test code <0.01 See_Comment [Auto mated = 0526134582) message] The s ystem which generated this result transmitted reference range : 10*3/?L. The reference range was not used to interpret this result as normal/abnormal . GRAN MAT (NEUT) % 90.4 % (test code = 770-8) IMM GRAN % (test code 1.30 % = 5767767108) LYMPH % (test code = 7.1 % 736-9) MONO % (test code = 0.5 % 5905-5) EOS % (test code = 0.1 % 713-8) BASO % (test code = 0.6 % 706-2) GRAN MAT x10^3(ANC) 7.74 10*3/uL 1.99-6.95 H (test code = 3036365316) IMM GRAN x10^3 (test 0.11 10*3/uL 0-0.06 H code = 6219471798) LYMPH x10^3 (test code 0.61 10*3/uL 1.09-3.23 L = 731-0) MONO x10^3 (test code 0.04 10*3/uL 0.36-1.02 L = 742-7) EOS x10^3 (test code = <0.03 0.06-0.53 L 711-2) BASO x10^3 (test code 0.05 10*3/uL 0.01-0.09 = 704-7) POLYCHROMASIA (test 2+ See_Comment [Automa ronan code = 53990-6) message] The system which generated this result transmitted reference range : 2+. The referen ce range was not u sed to interpret th is result as normal/abnormal . BANDS (test code = Increased A 0193628887) Lab Interpretation Abnormal (test code = 39005-4) [facility]ellandPROCALCITONIN2020-11-09 11:48:00 Test Item Value Reference Range Interpretation Comments Procalcitonin (test 0.36 ng/mL <0.07 H code = 2605167420) JAMES (test code = JAMES) INTERPRETATION OF [...] For further information please refer to:[email or web address] Lab Interpretation Abnormal (test code = 21534-8) [facility] LevellandLAILATE [id number] 10:53:00 Test Item Value Reference Range Interpretation Comments LDH (test code = 9124386692) 351 U/L 300-600 Lab Interpretation (test code = Normal 90048-9) [facility]ellandSEDIMENTATION [id number] 10:07:00 Test Item Value Reference Range Interpretation Comments ESR (test code = See_Comment H [Automated message] 8210870748) The system [employer] generated this result transmitted ref erence range: 0 - 10 m m/HR. The reference r torito was not used to interpret this result as normal/abnor mal. Lab Interpretation (test Abnormal code = 65386-7) [facility]andPO[facility] GL[facility]SE ([facility]ATED[facility]2020-08-21 09:45:00 Test Item Value Reference Range Interpretation Comments POCT GLU (test code = 9962691873) 287 mg/dL 70-110 H Lab Interpretation (test code = Abnormal 66324-5) [facility]ellandGlycosylated Hemoglobin (A1C)2020-08-21 09:29:00 Test Item Value Reference Range Interpretation Comments HGB A1C (test code = 4548-4) 9.8 % 4-6 H Lab Interpretation (test code = Abnormal 74648-1) [facility]andCOVID[facility] (ID NOW RAPID TESTING)2020-08-21 09:13:00 Test Item Value Reference Range Interpretation Comments SARS-CoV-2 Rapid ID NOW Not Detected Not Detected (test code = 49705-5) JAMES (test code = JAMES) ID NOW COVID-19 Assay is an isothermal nucleic acid amplification test intended for the qualitative detection of nucleic acid from SARS-CoV-2 viral RNA in nasopharyngeal (MEDIA RELATIONS MANAGER) specimens. It is used under Emergency [...] indicated. Lab Interpretation Normal (test code = 35816-2) [facility] [facility]thrombin Time / [id number] 08:59:00 Test Item Value Reference Range Interpretation Comments PROTIME PATIENT (test See_Comment H [Auto mated message] code = 5964-2) The system [employer] generated this result transmitted ref erence range: 10.1 - 1 2.6 Seconds. The reference range was not used to int erpret this result as normal/abnormal . INR (test code = 6301-6) Nor mal INR <1.1; Warfarin Therap eutic range 2.0 to 3. 0 or 2.5 to 3.5, dep ending upon the indica tions. Lab Interpretation (test Abnormal code = 78193-4) [facility] 08:[facility]00 Test Item Value Reference Range Interpretation Comments APTT Patient (test code = See_Comment [ Automated message] 3173-2) The system [employer] generated this result transmitted ref erence range: 26 - 36 Seconds. The re ference range was not u sed to interpret this result as normal/abnor mal. Lab Interpretation (test Normal code = 23163-2) [facility] (NA, K, CL, CO2, GLUCOSE, BUN, CREATININE, CA)2020-08-21 08:52:00 Test Item Value Reference Range Interpretation Comments NA (test code = 136 mmol/L 135-145 0358944564) K (test code = 4.3 mmol/L 3.5-5 5080002423) CL (test code = 104 mmol/L 98-108 7349455765) CO2 TOTAL (test code = 24 mmol/L 23-31 3502502303) AGAP (test code = 2-16 0983746762) BUN (test code = 8 mg/dL 7-23 2308783048) GLUCOSE (test code = 308 mg/dL 70-110 H 0946156384) CREATININE (test code = 0.72 mg/dL 0.6-1.25 9123682018) CALCIUM (test code = 7.8 mg/dL 8.6-10.6 L 1541076721) eGFR Calculation mL/min/1.73m2 (Non-) (test code = 7592317865) eGFR Calculation mL/min/1.73m2 () (test code = 8787847238) JAMES (test code = JAMES) Association of [...] tests). Lab Interpretation Abnormal (test code = 80237-4) [facility] PAN[facility] (08294) (ALB,T.PRO,BILI T,BU/BC,ALT,AST,ALK PHOS)2020-08-21 08:52:00 Test Item Value Reference Range Interpretation Comments TOTAL BILI (test code = 9895718432) 0.8 mg/dL 0.1-1.1 BILI UNCON (test code = 9462433193) 0.3 mg/dL 0.1-1.1 BILI CONJ (test code = 0467891799) 0.0 mg/dL 0-0.3 T PROTEIN (test code = 8226641621) 5.7 g/dL 6.3-8.2 L ALBUMIN (test code = 1314908472) 2.7 g/dL 3.5-5 L ALK PHOS (test code = 2566273665) 245 U/L 34-122 H ALTv (test code = 1742-6) 37 U/L 5-50 AST(SGOT) (test code = 1567847500) 43 U/L 13-40 H Lab Interpretation (test code = Abnormal 27198-8) [facility]
--- NOTE | 2022-08-07 08:17 | ER ---
Nurse's Notes [facility] Name: Kiel Ngo Age: 71 yrs Sex: Male : 1950 Arrival Date: 08/07/2022 Time: 08:02 Bed 15 Private MD: Diagnosis: Candidiasis, unspecified Presentation: 08/07 08:08 Chief complaint: EMS states: they were called to the patients home because the patient ap3 was complaining of a painful itch to his buttock area. patient states that the itching was so bothersome he took 100mg of benadryl at 0500 this morning to alleviate some of the itching. Coronavirus screen: At this time, the client does not indicate any symptoms associated with coronavirus-19. Ebola Screen: No symptoms or risks identified at this time. Initial Sepsis Screen: Does the patient meet any 2 criteria? No. Patient's initial sepsis screen is negative. Does the patient have a suspected source of infection? No. Patient's initial sepsis screen is negative. Risk Assessment: Do you want to hurt yourself or someone else? Patient reports no desire to harm self or others. Onset of symptoms was August 07, 2022. 08:08 Method Of Arrival: EMS: [facility] ap3 08:08 Acuity: JOZEF 4 ap3 Triage Assessment: 08:09 General: Appears in no apparent distress. Behavior is calm, cooperative, appropriate ap3 for age. Pain: Complains of pain in buttocks Quality of pain is described as itching. Neuro: Level of Consciousness is awake, alert, obeys commands, Oriented to person, place, time, situation, Speech is normal. Cardiovascular: Patient's skin is warm and dry. Respiratory: Airway is patent Respiratory effort is even, unlabored, Respiratory pattern is regular, symmetrical. Historical: - Allergies: 08:09 Demerol; ap3 08:09 metformin; ap3 08:09 Morphine; ap3 - PMHx: 08:09 Atrial fibrillation; chronic back pain; Chronic right leg pain; neuropathy; ap3 - PSHx: 08:09 back sx; PANCREAS SX; R. Ankle SX; ap3 - Immunization history:: Client reports having NOT received the Covid vaccine. Flu vaccine is not up to date. - Social history:: Smoking status: Patient denies any tobacco usage or history of. Screenin:10 Abuse screen: Denies threats or abuse. Nutritional screening: No deficits noted. ap3 Tuberculosis screening: No symptoms or risk factors identified. Fall Risk Fall in past 12 months (25 points). Secondary diagnosis (15 points) impaired mobility, No IV (0 pts). Ambulatory Aid- None/Bed Rest/Nurse Assist (0 pts). Gait- Impaired (20 pts.). Mental Status- Oriented to own ability (0 pts). Total Chow Fall Scale indicates High Risk Score (45 or more points). Fall prevention measures have been instituted. Side Rails Up X 2 Placed Close to Nursing Station Frequent Obs/Assessments Occuring As available patient and family educated on Fall Prevention Program and Strategies. Vital Signs: 08:08 BP 143 / 98; Pulse 92; Resp 14; Temp 98.4; Pulse Ox 96% ; Weight 83.91 kg; Height 5 ft. ap3 11 in. (180.34 cm); 08:08 Body Mass Index 25.80 (83.91 kg, 180.34 cm) ap3 ED Course: 08:02 Patient arrived in ED. iw 08:03 Vera Lee [facility]C [facility] kb 08:03 Scotty Guzman DO is Attending Physician. kb 08:07 Katharine Boogie, DIEGO is Primary Nurse. ap3 08:09 Triage completed. ap3 08:13 Arm band placed on right wrist. ap3 08:13 Patient has correct armband on for positive identification. Bed in low position. Call ap3 light in reach. Side rails up X2. Pulse ox on. NIBP on. Door closed. Noise minimized. 08:22 No provider procedures requiring assistance completed. Patient did not have IV access ap3 during this emergency room visit. Administered Medications: No medications were administered Medication: 08:13 VIS not applicable for this client. ap3 Outcome: 08:17 Discharge ordered by . kb 09:18 Discharged to home via ambulance. ap3 09:18 Condition: good 09:18 Discharge instructions given to patient, Instructed on discharge instructions, follow up and referral plans. medication usage, Demonstrated understanding of instructions, follow-up care, medications, Prescriptions given X 1. 09:19 Patient left the ED. ap3 Signatures: Vera Lee FNP-C FNP-Ckb Williams, Irene, RN RN iw Katharine Boogie, RN RN ap3
--- NOTE | 2022-08-07 08:17 | EDPHYS ---
Physician Documentation [facility] Name: Kiel Ngo Age: 71 yrs Sex: Male : 1950 Arrival Date: 08/07/2022 Time: 08:02 Bed 15 Private MD: ED Physician Scotty Guzman HPI: 08/07 08:12 This 71 yrs old Male presents to ER via EMS with complaints of rash, itching. kb 08:12 The patient's rash thought to be caused by yeast. The rash is located on the buttocks. kb The rash can be described as erythematous. Onset: The symptoms/episode began/occurred "years ago". Associated signs and symptoms: Pertinent positives: itching. Severity of symptoms: At their worst the symptoms were moderate in the emergency department the symptoms are unchanged. Treatment given at home: Benadryl. The patient has experienced similar episodes in the past, chronically. The patient has been recently seen by a physician:. Pt reports he has had a fungal infection to buttocks for years and normally takes benadryl. States he took 100mg of benadryl at 0600 but is still having itching. Wants something to get rid of the fungal infection. States he needs the fungal infection to be cleared up so he can have his pain pump replaced. Historical: - Allergies: 08:09 Demerol; ap3 08:09 metformin; ap3 08:09 Morphine; ap3 - PMHx: 08:09 Atrial fibrillation; chronic back pain; Chronic right leg pain; neuropathy; ap3 - PSHx: 08:09 back sx; PANCREAS SX; R. Ankle SX; ap3 - Immunization history:: Client reports having NOT received the Covid vaccine. Flu vaccine is not up to date. - Social history:: Smoking status: Patient denies any tobacco usage or history of. ROS: 08:08 Constitutional: Negative for fever, chills, and weight loss. kb 08:08 Skin: Positive for rash, of the buttocks. 08:08 All other systems are negative. Exam: 08:08 Constitutional: This is a well developed, well nourished patient who is awake, alert, kb and in no acute distress. Head/Face: Normocephalic, atraumatic. ENT: Moist Mucous membranes Respiratory: Respirations even and unlabored. No increased work of breathing. Talking in full sentences MS/ Extremity: Pulses equal, no cyanosis. Neurovascular intact. Full, normal range of motion. Neuro: Awake and alert, GCS 15, oriented to person, place, time, and situation. Moves all extremities. Normal gait. Psych: Awake, alert, with orientation to person, place and time. Behavior, mood, and affect are within normal limits. 08:08 Skin: rash a mild rash is noted, consistent with candidiasis, on the buttocks, right femoral area and left femoral area, erythema and slight skin breakdown to lower back, upper buttocks.. Vital Signs: 08:08 BP 143 / 98; Pulse 92; Resp 14; Temp 98.4; Pulse Ox 96% ; Weight 83.91 kg; Height 5 ft. ap3 11 in. (180.34 cm); 08:08 Body Mass Index 25.80 (83.91 kg, 180.34 cm) ap3 MDM: 08:03 Patient medically screened. kb 08:09 Data reviewed: vital signs, nurses notes. Data interpreted: Pulse oximetry: on room air kb is 96 %. Interpretation: normal. Counseling: I had a detailed discussion with the patient and/or guardian regarding: the historical points, exam findings, and any diagnostic results supporting the discharge/admit diagnosis, the need for outpatient follow up, a family practitioner, to return to the emergency department if symptoms worsen or persist or if there are any questions or concerns that arise at home. Administered Medications: No medications were administered Disposition: 21:17 Co-signature as Attending Physician, Scotty Guzman DO I was immediately available on-site ms3 in the Emergency Department for consultation in the care of the patient.. Disposition Summary: 08/07/22 08:17 Discharge Ordered Location: Home kb Condition: Stable kb Diagnosis - Candidiasis, unspecified kb Followup: kb - With: Emergency Department - When: As needed - Reason: Worsening of condition Followup: kb - With: Private Physician - When: 2 - 3 days - Reason: Recheck today's complaints, Continuance of care, Re-evaluation by your physician Discharge Instructions: - Discharge Summary Sheet kb - Skin Yeast Infection kb Forms: - Medication Reconciliation Form kb - Thank You Letter kb - Antibiotic Education kb - Prescription Opioid Use kb Prescriptions: - Nystatin-Triamcinolone 100,000-0.1 unit/g-% Topical Cream - apply 1 application by TOPICAL route 2 times per day; 1 tube; Refills: 0, kb Product Selection Permitted Signatures: Vera Lee, Katharine Wiley, DIEGO RN ap3 Scotty Guzman DO DO ms3 Corrections: (The following items were deleted from the chart) 08:12 08:08 Skin: Positive for abrasion(s), erythema, rash, of the buttocks, kb kb 08:12 08:08 Skin: rash a mild rash is noted, consistent with candidiasis, kb kb
[2022-08-07 09:27] VITALS: BP 143/98; TEMP 98.4; O2SAT 96
== END 2022-08-07 09:19 | disposition home or self-care (01) ==
LOC: ER 07:58
DX: B37.9 Candidiasis, unspecified (principal); Z88.5 Allergy status to narcotic agent; Z88.8 Allergy status to other drugs, medicaments and biological substances
CPT/HCPCS: 99283

== ENCOUNTER 2022-09-12 08:40 | Emergency (ER) | payer OTHER ==
--- OUTSIDE RECORDS SUMMARY | 2022-09-12 08:48 | XMS REPORT | Continuity of Care Document ---
:[address] [facility] t Address [address] [place] [address] Care Team Providers Name Role Phone CALVIN [...] PACO LACEY Attending Clinician Unavailable Doctor Unassigned, [place] Attending Clinician Unavailable Wilder VILLAREAL, Angi K.HWong Attending Clinician Jl Mccabe MD Attending Clinician Kelly Washington MD Attending Clinician [phone] Mukul Gallardo MD Attending Clinician MUKUL GALLARDO Admitting Clinician Unavailable Harrison MD, Premal G Admitting Clinician KRUPA VIKA G Admitting Clinician Unavailable Nicci VILLAREAL, Mukul Anand Admitting Clinician Payers Payer Name Policy Type Policy Number Effective Date Expiration Date Tony doe MEDICARE PART A [id number] 2007 \\T\\ B 00:00:00 [employer] INDEMNITY [id number] 2016 00:00:00 MEDICARE PART A [id number] 2014 \\T\\ B - MEDICARE 00:00:00 INDEMNITY/TRADITIO [id number] NAL CHOICE - [employer] 00:00:00 Problems Condition [...] ents Source Name Type Date Date Clinician Steele Propensi Active Rash 2019- Univers ty to [...] Quantity Comments Source Exposure to Not sure [place] of SARS-CoV-2 [place] [facility] (event) Branch History of Chews Tobacco University of tobacco use [place] [facility] History SDOH 2020-11-17 2020-11-17 5 University o f Financial 00:00:00 00:00:00 [place] [facility] History SDAZ Food 2020-11-17 2020-11-17 1 Univers ity of Worry 00:00:00 00:00:00 [place] [facility] History SDOH Food 2020-11-17 2020-11-17 1 Univers ity of Scarcity 00:00:00 00:00:00 [place] [facility] History SDOH 2020-11-17 2020-11-17 1 University o f Transport Med 00:00:00 00:00:00 [place] [facility] al [facility] History SDOH 2020-11-17 2020-11-17 1 University o f Transport Non-Med 00:00:00 00:00:00 [facility] edical Branch Education 2020-11-16 2020-11-16 21 [place] of 00:00:00 00:00:00 [facility] Alcohol intake 2020-11-16 2020-11-16 Ex-drinker [facility] 00:00:00 00:00:00 (finding) [facility] Tobacco use and 2020-08-21 2020-08-21 Former user Universi ty of exposure 00:00:00 00:00:00 [facility] Tobacco Comment 2020-08-21 2020-08-21 quit 10 years Univer sity of 00:00:00 00:00:00 ago, started in [place] Med ical 2nd year of Branch college (~40 years) Alcohol Comment 2020-08-21 2020-08-21 Used to have 2-3 Uni versity of 00:00:00 00:00:00 six-packs of [place] [facility]ica l beer daily x 20 Branch years, quit 2004 History [facility] 2020-08-21 2020-08-21 99 University o f Alcohol Frequency 00:00:00 00:00:00 [place] [facility] edical Branch History [facility] 2020-08-21 2020-08-21 99 [place] o f Alcohol Std 00:00:00 00:00:00 [place] [facility] Drinks Branch History [facility] 2020-08-21 2020-08-21 99 [place] o f Alcohol Binge 00:00:00 00:00:00 [facility] al [place] Sex Ass[birth year] Universit y of 00:00:00 00:00:00 [facility] Smoking Status Start Date Stop Date Source Never smoker [facility] Medications Ordered Filled Start Stop Current [...] by ity of tablet 22:47: mouth at [place] 18 bedtime. Medical Branch HYDROmorpho 2020-0 Yes [...] by ity of tablet 22:47: mouth at [place] 18 bedtime. Medical Branch HYDROmorpho 0 Yes [...] by ity of tablet 16:47: mouth at [place] 18 bedtime. Medical Branch HYDROmorpho 0 Yes [...] 0845, Until Discontinu ed, Routine amLODIPine Yes [id number] 10mg Take 1 Univers 10 mg 3-07 tablet by ity of tablet 00:00: mouth [place] 00 daily. Medical Branch clotrimazol Yes [id number] Apply to Univers e 1 % 3-07 face/ears, ity of topical 00:00: armpits, [place] cream 00 pannus and Medical back/any Branch other rash twice a day fluocinonid 0 Yes [id number] Apply to Univers e 0.05 % 3-07 scalp ity of solution 00:00: twice a [place] 00 day Medical Branch triamcinolo Yes [id number] Apply to Univers ne 3-07 back, ity of acetonide 00:00: armpits [place] 0.1 % cream 00 and other Med ical affected Branch areas twice daily, please mix with clotrimazo le hydrOXYzine Yes [id number] 10mg Take 1 Univers 10 mg 3-07 tablet by ity of tablet 00:00: mouth 2 00 (two) Medical times Branch daily. amLODIPine Yes [id number] 10mg Take 1 Univers 10 mg 3-07 tablet by ity of tablet 00:00: mouth [place] 00 daily. Medical Branch clotrimazol Yes [id number] Apply to Univers e 1 % 3-07 face/ears, ity of topical 00:00: armpits, [place] cream 00 pannus and Medical back/any Branch other rash twice a day fluocinonid Yes [id number] Apply to Univers e 0.05 % 3-07 scalp ity of solution 00:00: twice a day Medical Branch triamcinolo Yes [id number] Apply to Univers ne 3-07 back, ity of acetonide 00:00: armpits [place] 0.1 % cream 00 and other Med ical affected Branch areas twice daily, please mix with clotrimazo le hydrOXYzine Yes [id number] 10mg Take 1 Univers 10 mg 3-07 tablet by ity of tablet 00:00: mouth 2 [place] 00 (two) Medical times Branch daily. amLODIPine Yes [id number] 10mg Take 1 Univers 10 mg 3-07 tablet by ity of tablet 00:00: mouth [place] 00 daily. Medical Branch clotrimazol 0 Yes [id number] Apply to Univers e 1 % 3-07 face/ears, ity of topical 00:00: armpits, [place] cream 00 pannus and Medical back/any Branch other rash twice a day fluocinonid 2020-0 Yes [id number] Apply to Univers e 0.05 % 3-07 scalp ity of solution 00:00: twice a day Medical Branch triamcinolo 2020-0 Yes [id number] Apply to Univers ne 3-07 back, ity of acetonide 00:00: armpits [place] 0.1 % cream 00 and other Med ical affected Branch areas twice daily, please mix with clotrimazo le hydrOXYzine Yes [id number] 10mg Take 1 Univers 10 mg 3-07 tablet by ity of tablet 00:00: mouth 2 [place] (two) Medical times Branch daily. amLODIPine Yes [id number] 10mg Take 1 Univers 10 mg 3-07 tablet by ity of tablet 00:00: mouth [place] 00 daily. Medical Branch clotrimazol Yes [id number] Apply to Univers e 1 % 3-07 face/ears, ity of topical 00:00: armpits, [place] cream 00 pannus and Medical back/any Branch other rash twice a day fluocinonid Yes [id number] Apply to Univers e 0.05 % 3-07 scalp ity of solution 00:00: twice a day Medical Branch triamcinolo 0 Yes [id number] Apply to Univers ne 3-07 back, ity of acetonide 00:00: armpits [place] 0.1 % cream 00 and other Med ical affected Branch areas twice daily, please mix with clotrimazo le hydrOXYzine Yes [id number] 10mg Take 1 Univers 10 mg 3- tablet by ity of tablet 00:00: mouth 2 (two) Medical times Branch daily. cephALEXin 2020-2020- No [id number] 500mg Take 1 Univers 500 mg -04 14- capsule by ity of capsule 00:00: 05:59 mouth [place] 00 :00 every 6 Medical (six) Branch hours for 3 days. cephALEXin 2020-0 2020- No [id number] 500mg Take 1 Univers 500 mg 3-04 14- capsule by ity of capsule 00:00: 05:59 mouth [place] 00 :00 every 6 Medical (six) Branch hours for 3 days. hydrOXYzine 2020-2020- No [id number] 10mg Take 1 Univers 10 mg 3- 03-07 tablet by ity of tablet 00:00: 00:00 mouth 2 [place] 00 :00 (two) Medical times [place] daily. morpHINE Yes 4mg 4 mg, Slow Uni vers injection 4 -06 IV Push, ity of mg 22:40: Q6HPRN, [place] 02 Starting Medical 12/16/20 [place] at 1640, Until Discontinu ed, Routine, Pain [...] 00 :00 dose, Sat Medical 12/16/20 at [place] 0515, Routine lactated 2020- No 1000mL at 125 Univ ers ringers IV 12-16 03-06 mL/hr, ity of infusion 01:00: 00:16 1,000 mL, [place] 1,000 mL 00 :00 IV Medical Infusion, [place] ONCE, 1 dose, 12/15/20 at 1900, Routine iohexol 2020- No 100mL 100 mL, Unive rs (OMNIPAQUE 12-15-05 Intravenou it y of 350 22:24: 22:24 s, ONCE, 1 [place] BULK-100 00 :00 dose, Fri Medica l mL) 12/15/20 at [place] injection 1645, 100 mL Routine cephALEXin 2020- [...] NaCl 0.9% 2020- No 500mL at 999 [facility] [place] [facility] ers (NS) bolus 12-15-05 mL/hr, 500 it y of infusion 16:00: 15:26 mL, IV [place] 500 mL 00 :00 Piggyback, Medical ONCE, 1 Branch dose, Fri12/15/20 at 1000, STAT HYDROmorpho Yes 4mg 4 mg, [facility] [place] [facility] rs ne 05 Oral, BID, ity of (DILAUDID) 15:30: First dose [place] tablet 4 mg 00 (after Medica l last Branch modificati on) on Fri12/15/20 at 0930, Until Discontinu ed, Routine amLODIPine 2020- No [id number] 10mg Take 1 Univers 10 mg 12-1507 tablet by ity of tablet 00:00: 00:00 mouth [place] 00 :00 daily. Medical Branch HYDROmorpho 2020- No 1mg 1 mg, [facility] [place] [facility] ers ne 12-14 03-05 Oral, ity of (DILAUDID) 17:35: 15:18 Q6HPRN, [place] tablet 1 mg 30 :06 Starting Medi [facility] 12/14/20 Branch at 1135, Until Fri12/15/20 at 0918, Routine, Pain (scale 7-10) hydrOXYzine Yes 10mg 10 mg, [facility] [place] [facility] ers (ATARAX) 304 Oral, BID, ity o f tablet 10 17:30: First dose [place] mg 00 on [facility] 12/14/20 at Branch 1130, Until Discontinu ed, Routine lisinopriL 0 Yes 5mg 5 mg, Univer s (PRINIVIL,Z -04 Oral, ity of ESTRIL) 17:30: DAILY, [place] tablet 5 mg 00 First dose Me dical on [facility] Branch 12/14/20 at 1130, Until Discontinu ed, Routine triamcinolo 2020- No [id number] Apply to Univers ne 12-14 back, ity of acetonide 00:00: 00:00 armpits [place] 0.1 % cream 00 :00 and other Med ical affected Branch areas twice daily, please mix with clotrimazo le clotrimazol 2020- No [id number] Apply to Univers e 1 % 12-14 face/ears, ity of topical 00:00: 00:00 armpits, [place] cream 00 :00 pannus and Medical back/any Branch other rash twice a day fluocinonid 2020- No [id number] Apply to Univers e 0.05 % 12-14 scalp ity of solution 00:00: 00:00 twice a [place] 00 :00 day Medical Branch hydrOXYzine 2020- No [id number] 10mg Take 1 Univers 10 mg 12-14 [...] injection 4 00 :00 dose, [facility] ical mg 12/12/20 at Branch 2300, Routine traMADoL 2020- No 50mg 50 mg, Univer s (ULTRAM) 12-13 03-03 Oral, ity of tablet 50 03:45: 03:34 ONCE, 1 [place] mg 00 :00 dose, [facility] 12/12/20 at Branch 2145, Routine insulin Yes 15U 15 Units, [facility] rs glargine 12-12 Subcutaneo ity o f (LANTUS 15:00: us, DAILY, [place] U-100) 00 First dose Medical injection on [facility] 15 Units 12/12/20 at 0900, Until Discontinu ed hydrOXYzine 2020- No 10mg 10 mg, Uni vers (ATARAX) 12-12 03-02 Oral, ity of tablet 10 08:15: 07:33 ONCE, 1 [place] mg 00 :00 dose, [facility] 12/12/20 at Branch 0215, Routine mirtazapine Yes 7.5mg 7.5 mg, Un toi (REMERON) 3-02 Oral, QHS, ity of tablet 7.5 03:00: First dose [place] mg 00 on [facility] 12/11/20 at Branch 2100, [...] Oral, ity of (TYLENOL 23:23: 13:49 Q6HPRN, [place] #3) 300-30 43 :08 Starting Medic al [...] 00 Fri12/11/20 Me dical cream at 1315, [place] Until Discontinu ed, Routine hydrocortis 0 Yes [...] ity of 1,000 mg in 19:00: 17:35 [place] NaCl 0.9% 00 :26 Q8H ABX, [...] insulin Yes 5U 5 Units, [facility] lispro 12-11 Subcutaneo ity of (human) 18:00: us, TID [place] (HumaLOG 00 MEALS, Medical U-100) First dose Branch injection 5 on Mon Units 12/11/20 at 1200, Until Discontinu ed Polyethylen Yes 17g 17 g, [facility] rs e Glycol 12-11 Oral, ity of 3350 17:47: [id number], [place] (MIRALAX) 05 Starting Medica l powder 17 g 12/11/20 Br anch at 1147, Until Discontinu ed, Routine, Constipati on acetaminoph Yes 650mg 650 mg, Un toi en 12-11 Oral, ity of (TYLENOL) 16:51: Q6HPRN, [place] tablet 650 28 Starting Medic al mg [...] 0630, STAT piperacilli No 3.375g 3.375 g, [facility] n-tazobacta 12-11 IV ity of m (ZOSYN) 12:00: 17:48 [place], [place] injection 00 :24 Q6H, First Medi jose c 3.375 g dose on Branch Fri12/11/20 at 0600, Until Discontinu ed, KAHLIL
Re ason for Anti-Infec tive: Empiric Therapy for Suspected Infection< br>Empiric Therapy Site: Skin / Soft tissue
Duration of therapy: 72 hours sennosides- Yes [id number] 1{tbl} Take 1 [facility] docusate 2-09 tablet by ity of sodium 00:00: mouth 2 [place] 8.6-50 mg 00 (two) Medical per tablet times Branch daily. hydrocortis Yes [id number] Apply to [facility] one 2.5 % 11-21 affected ity of cream 00:00: area(s) 2 [place] 00 (two) Medical times Branch daily. blood sugar Yes [id number] Use to [facility] diagnostic 2 check ity of (FREESTYLE 00:00: blood [place] LITE 00 glucose Medical STRIPS) 4-5 times Branch strip daily. Polyethylen Yes [id number] 17g Take 1 Univers e Glycol 2-09 Packet by ity of 3350 17 00:00: mouth [place] gram powder 00 every 24 Medi jose c (twenty-fo Branch ur) hours as needed for Constipati on. sennosides- Yes [id number] 1{tbl} Take 1 Univers docusate 2-09 tablet by ity of sodium 00:00: mouth 2 [place] 8.6-50 mg 00 (two) Medical per tablet times Branch daily. hydrocortis Yes [id number] Apply to Univers one 2.5 % 2-09 affected ity of cream 00:00: area(s) 2 [place] 00 (two) Medical times Branch daily. blood sugar Yes [id number] Use to Univers diagnostic 11-21 check ity of (FREESTYLE 00:00: blood [place] LITE 00 glucose Medical STRIPS) 4-5 times Branch strip daily. Polyethylen Yes [id number] 17g Take 1 Univers e Glycol 2-09 Packet by ity of 3350 17 00:00: mouth [place] gram powder 00 every 24 Medi jose c (twenty-fo Branch ur) hours as needed for Constipati on. sennosides- Yes [id number] 1{tbl} Take 1 Univers docusate 2-09 tablet by ity of sodium 00:00: mouth 2 [place] 8.6-50 mg 00 (two) Medical per tablet times Branch daily. hydrocortis Yes [id number] Apply to Univers one 2.5 % 2-09 affected ity of cream 00:00: area(s) 2 [place] 00 (two) Medical times Branch daily. blood sugar Yes [id number] Use to Univers diagnostic 11-21 check ity of (FREESTYLE 00:00: blood [place] LITE 00 glucose Medical STRIPS) 4-5 times Branch strip daily. Polyethylen 2020-0 Yes [id number] 17g Take 1 Univers e Glycol 2-09 Packet by ity of 3350 17 00:00: mouth [place] gram powder 00 every 24 Medi jose c (twenty-fo Branch ur) hours as needed for Constipati on. sennosides- Yes [id number] 1{tbl} Take 1 Univers docusate 2-09 tablet by ity of sodium 00:00: mouth 2 [place] 8.6-50 mg 00 (two) Medical per tablet times Branch daily. hydrocortis Yes [id number] Apply to [facility] one 2.5 % 11-21 affected ity of cream 00:00: area(s) 2 [place] 00 (two) Medical times Branch daily. blood sugar Yes [id number] Use to [facility] diagnostic 11-21 check ity of (FREESTYLE 00:00: blood [place] LITE 00 glucose Medical STRIPS) 4-5 times Branch strip daily. Polyethylen Yes [id number] 17g Take 1 Univers e Glycol 11-21 Packet by ity of 3350 17 00:00: mouth [place] gram powder 00 every 24 Medi jose c (twenty-fo Branch ur) hours as needed for Constipati on. Insulin 2020- No [id number] 15U inject 15 Univers Glargine 11-21- Units ity of (LANTUS 00:00: 05:59 under the [employer] SOLOSTAR 00 :00 skin every Medic al U-100 morning Branch INSULIN) for 30 100 unit/mL days. (3 mL) injection venlafaxine 2020- No [id number] 150mg Take 1 Univers XR 150 mg 11-21 capsule by ity of 24 hr 00:00: 05:59 mouth 3 [place] capsule 00 :00 (three) Medical times Branch daily for 30 days. Insulin 2020- No [id number] 15U inject 15 Univers Glargine 11-21-12 Units ity of (LANTUS 00:00: 05:59 under the [employer] SOLOSTAR 00 :00 skin every Medic al U-100 morning Branch INSULIN) for 30 100 unit/mL days. (3 mL) injection venlafaxine 2020- No [id number] 150mg Take 1 Univers XR 150 mg 11-21- capsule by ity of 24 hr 00:00: 05:59 mouth 3 [place] capsule 00 :00 (three) Medical times Branch daily for 30 days. triamcinolo 2020- No [id number] Apply to [facility] ne 11-21-04 area(s) 2 ity of acetonide 00:00: 00:00 (two) [place] 0.1 % cream 00 :00 times Medical daily. Branch cephALEXin 2020- No [id number] 1000mg Take 2 Univers 500 mg 11-21 capsules ity of capsule 00:00: 00:00 by mouth 3 [place] 00 :00 (three) Medical times Branch daily. doxycycline 2020- No [id number] 100mg Take 1 Univers hyclate 100 11-21 capsule by i ty of mg capsule 00:00: 00:00 mouth [place] 00 :00 every 12 Medical (twelve) Branch hours. lactobacill 2020- No [id number] 1{tbl} Take 1 Univers us 11-21 tablet by ity of acidophilus 00:00: 00:00 mouth 2 [place] 25 million 00 :00 (two) Medical cell -100 times Branch mg captab daily. bisacodyL 2020- No [id number] 10mg Insert 1 Univers 10 mg 11-21 Suppositor ity of suppository 00:00: 00:00 y into [place] 00 :00 rectum at Medical bedtime as Branch needed for Constipati on. ALPRAZolam 2020- No [id number] .25mg Take 1 Univers (XANAX) 11-21 tablet by ity of 0.25 mg 00:00: 00:00 mouth 2 [place] tablet 00 :00 (two) Medical times Branch daily. hydrOXYzine 2020- No [id number] 20mg Take 2 Univers 10 mg 11-21 [...] 3 ity of 6 mg 01:13: (three) [place] capsule 36 times Medical daily. Branch Insulin 2019-10 Yes 15U inject 15 Unive rs Glargine 1-12 Units ity of (LANTUS 01:13: under the [place] SOLOSTAR) 36 skin. Medical 100 unit/mL Branch (3 mL) InPn INSULIN 2019-10 Yes 5U inject 5 Univer s ASPART 1-12 Units ity of (NOVOLOG 01:13: under the [facility] FLEXPEN SC) 36 skin. Medical [...] 3 ity of 6 mg 01:13: (three) [place] capsule 36 times Medical daily. Branch Insulin 2019-10 Yes 15U inject 15 Unive rs Glargine 1-12 Units ity of (LANTUS 01:13: under the [place] SOLOSTAR) 36 skin. Medical 100 unit/mL Branch (3 mL) InPn INSULIN 2019-10 Yes 5U inject 5 Univer s ASPART 1-12 Units ity of (NOVOLOG 01:13: under the [facility] FLEXPEN SC) 36 skin. Medical [...] Units ity of (LANTUS 01:13: under the [place] SOLOSTAR) 36 skin. Medical 100 unit/mL Branch (3 mL) InPn INSULIN 2019-10 Yes 5U inject 5 Univer s ASPART 1-12 Units ity of (NOVOLOG 01:13: under the [facility] s FLEXPEN SC) 36 skin. Medical Branch ALPRAZolam 2019-10 Yes .25mg Take 0.25 U nivers (XANAX) 1-12 mg by ity of 0.25 mg 01:13: mouth 2 [place] tablet 36 (two) Medical times Branch daily. HYDROXYZINE 2019-10 2020- No 25mg Take 25 mg Univers PAMOATE 1-11 11-11 by mouth ity of ORAL 20:04: 00:00 daily. [place] 34 :00 Medical Branch hydrocortis 2019-10 Yes [id number] Apply to Univers one 2.5 % 1-11 affected ity of cream 00:00: area(s) 2 [place] 00 (two) Medical times Branch daily. hydrOXYzine 2019-10 Yes [id number] 20mg Take 2 Univers 10 mg 1-11 tablets by ity of tablet 00:00: mouth [place] 00 every 8 Medical (eight) Branch hours as needed for Itching or Anxiety. Polyethylen 2019-10 Yes [id number] 17g Take 1 Univers e Glycol 1-11 Packet by ity of 3350 17 00:00: mouth [place] gram powder 00 every 24 Medi jose c (twenty-fo Branch ur) hours as needed for Constipati on. hydrocortis 2019-10 Yes [id number] Apply to Univers one 2.5 % 1-11 affected ity of cream 00:00: area(s) 2 [place] 00 (two) Medical times Branch daily. hydrOXYzine 2019- Yes [id number] 20mg Take 2 Univers 10 mg 1-11 tablets by ity of tablet 00:00: mouth [place] 00 every 8 Medical (eight) Branch hours as needed for Itching or Anxiety. Polyethylen 2019- Yes [id number] 17g Take 1 Univers e Glycol 1-11 Packet by ity of 3350 17 00:00: mouth [place] gram powder 00 every 24 Medi jose c (twenty-fo Branch ur) hours as needed for Constipati on. hydrocortis 2019- Yes [id number] Apply to Univers one 2.5 % 1-11 affected ity of cream 00:00: area(s) 2 [place] (two) Medical times Branch daily. hydrOXYzine 2019-10 Yes [id number] 20mg Take 2 Univers 10 mg 1-11 tablets by ity of tablet 00:00: mouth [place] 00 every 8 Medical (eight) Branch hours as needed for Itching or Anxiety. Polyethylen 2019- Yes [id number] 17g Take 1 Univers e Glycol 1-11 Packet by ity of 3350 17 00:00: mouth [place] gram powder 00 every 24 Medi jose c (twenty-fo Branch ur) hours as needed for Constipati on. hydrocortis 2019-10 Yes [id number] Apply to Univers one 2.5 % 1-11 affected ity of cream 00:00: area(s) 2 [place] (two) Medical times Branch daily. hydrOXYzine 2019-10 Yes [id number] 20mg Take 2 Univers 10 mg 1-11 tablets by ity of tablet 00:00: mouth [place] 00 every 8 Medical (eight) Branch hours as needed for Itching or Anxiety. Polyethylen 2019-10 Yes [id number] 17g Take 1 Univers e Glycol 1-11 Packet by ity of 3350 17 00:00: mouth [place] gram powder 00 every 24 Medi jose c (twenty-fo Branch ur) hours as needed for Constipati on. hydrocortis 2019-10 Yes [id number] Apply to Univers one 2.5 % 1-11 affected ity of cream 00:00: area(s) 2 [place] 00 (two) Medical times Branch daily. hydrOXYzine 2019-10 Yes [id number] 20mg Take 2 Univers 10 mg 1-11 tablets by ity of tablet 00:00: mouth [place] 00 every 8 Medical (eight) Branch hours as needed for Itching or Anxiety. Polyethylen 2019- Yes [id number] 17g Take 1 Univers e Glycol 1-11 Packet by ity of 3350 17 00:00: mouth [place] gram powder 00 every 24 Medi jose c (twenty-fo Branch ur) hours as needed for Constipati on. hydrocortis 2019-10 Yes [id number] Apply to Univers one 2.5 % 1-11 affected ity of cream 00:00: area(s) 2 [place] 00 (two) Medical times Branch daily. hydrOXYzine 2019- Yes [id number] 20mg Take 2 Univers 10 mg 1-11 tablets by ity of tablet 00:00: mouth [place] 00 every 8 Medical (eight) Branch hours as needed for Itching or Anxiety. Polyethylen 2019- Yes [id number] 17g Take 1 Univers e Glycol 1-11 Packet by ity of 3350 17 00:00: mouth [place] gram powder 00 every 24 Medi jose c (twenty-fo Branch ur) hours as needed for Constipati on. hydrocortis 2019- Yes [id number] Apply to Univers one 2.5 % 1-11 affected ity of cream 00:00: area(s) 2 [place] 00 (two) Medical times Branch daily. hydrOXYzine 2019- Yes [id number] 20mg Take 2 Univers 10 mg 1-11 tablets by ity of tablet 00:00: mouth [place] 00 every 8 Medical (eight) Branch hours as needed for Itching or Anxiety. Polyethylen 2019- Yes [id number] 17g Take 1 Univers e Glycol 1-11 Packet by ity of 3350 17 00:00: mouth [place] gram powder 00 every 24 Medi jose c (twenty-fo Branch ur) hours as needed for Constipati on. triamcinolo 2019- 2020- No [id number] Apply to Univers ne 10-23 area(s) 2 ity of acetonide 00:00: 05:59 (two) [place] 0.1 % cream 00 :00 times Medical daily for Branch 14 days. triamcinolo 2019- 2020- No [id number] Apply to Univers ne 10-23 area(s) 2 ity of acetonide 00:00: 05:59 (two) [place] 0.1 % cream 00 :00 times Medical daily for Branch 14 days. triamcinolo 2020- 2020- No [id number] Apply to [facility] ne 10-23 area(s) 2 ity of acetonide 00:00: 05:59 (two) [place] 0.1 % cream 00 :00 times Medical daily for Branch 14 days. KCL 2019- 2020- No 40meq 40 mEq, Univers (KLOR-CON 1-10 11-10 Oral, ONCE ity of M20) tablet 16:15: 16:23 NOW, 1 [place] 40 mEq 00 :00 dose, [facility] 08/22/20 Branch at 1015, Routine HYDROmorpho 2019-10 Yes 1mg 1 mg, Unive rs ne 1-10 Oral, ity of (DILAUDID) 15:07: Q6HPRN, [place] tablet 1 mg 53 Starting [facility] 08/22/20 at 0907, Until Discontinu ed, Routine, Pain (scale 7-10) hydrocortis 2019-10 Yes Topical Uni vers one 2.5 % 1-10 (Apply To ity o f cream 02:00: Affected [place] 00 Areas), Medical BID, First Branch dose on [facility] 08/21/20 at 2000, Until Discontinu ed, Routine triamcinolo 2019-10 Yes Topical, Un toi ne 1-10 BID, First ity of acetonide 02:00: dose on [place] (TRIDERM) [facility] Medical 0.1 % cream 08/21/20 at Br anch 2000, Until Discontinu ed, Routine hydrOXYzine 2019-10 Yes 20mg 20 mg, Univ ers (ATARAX) 09 Oral, ity of tablet 20 17:39: Q8HPRN, [place] mg 12 Starting [facility] 08/21/20 at 1139, Until Discontinu ed, Routine, Itching, Anxiety sennosides- 2019-10 Yes 1{tbl} 1 tablet, Univers docusate 10-21 Oral, ity of sodium 15:00: DAILY, [place] (SENOKOT-S) 00 First dose Me dical 8.6-50 mg on [facility] per tablet 08/21/20 at 1 [...] dose [place] capsule 150 00 on [facility] Medica l mg 08/21/20 at [...] 25 59 :43 Starting Medica l mg [facility] 08/21/20 at 0656, Until Fri08/21/20 at 1139, Routine, Itching, Mild Rash, Congestion /Allergies , alternate with hydroxyzin e hydrOXYzine 2019-10- No 10mg 10 mg, Uni vers (ATARAX) 10-21 Oral, ity of tablet 10 10:20: 12:57 Q6HPRN, [place] mg 22 :12 Starting Medical [facility] 08/21/20 at 0420, Until Fri08/21/20 [...] 1 ity o f 09:30: 09:14 dose, [facility] 00 :00 08/21/20 at [facility] 0330, Branch Routine Polyethylen 2019-10 Yes 17g 17 g, [facility] rs e Glycol 10-21 Oral, ity of 3350 08:29: T33AAOY, [place] (MIRALAX) 09 Starting Medica l powder 17 g [facility] 08/21/20 at 0229, Until Discontinu ed, Routine, Constipati on lanolin 2019-10 Yes Topical, Univer s alcohol-mo- 10-21 PRN, ity of w.pet-ce[place] 08:26[place] (EUCERIN[place] 30 [facility] Medical cream 08/21/20 at Branch [...] 1-3) sotalol 2019-10 2020- No Take by [facility] s (BETAPACE) 10-21 mouth ity of 240 mg 07:43: 00:00 every 12 [place] tablet 30 :00 (twelve) Medical hours. Branch blood sugar Yes Use to [facility] ers diagnostic 4-25 check ity of (FREESTYLE 00:00: blood [place] LITE 00 glucose Medical STRIPS) 4-5 times Branch strip daily. blood sugar Yes Use to [facility] ers diagnostic 4-25 check ity of (FREESTYLE 00:00: blood [place] LITE 00 glucose Medical STRIPS) 4-5 times Branch strip daily. blood sugar Yes Use to [facility] ers diagnostic 4-25 check ity of (FREESTYLE 00:00: blood [place] LITE 00 glucose Medical STRIPS) 4-5 times Branch strip daily. blood sugar Yes Use to [facility] ers diagnostic 4-25 check ity of [...] 2021-08-22 13:00:00 148 mm[Hg] Univer sity of [facility] Diastolic blood 2021-08-22 13:00:00 84 mm[Hg] Unive rsity of [facility] Heart rate 2021-08-22 13:00:00 103 /min [facility] Respiratory rate 2021-08-22 13:00:00 18 /min [facility] Oxygen saturation in 2021-08-22 13:00:00 95 /min University of Arterial blood by [facility] Pulse oximetry [place] Body temperature 2021-08-22 12:22:00 36.72 [place] [facility] Systolic blood 2020-12-17 18:35:00 139 mm[Hg] Univer sity of [facility] Diastolic blood 2020-12-17 18:35:00 87 mm[Hg] Unive rsity of [facility] Heart rate 2020-12-17 18:35:00 110 /min [facility] Body temperature 2020-12-17 18:35:00 37.72 [place] [facility] Respiratory rate 2020-12-17 18:35:00 18 /min [facility] Oxygen saturation in 2020-12-17 18:35:00 93 /min University of Arterial blood by [facility] Pulse oximetry Branch Body height 2020-12-12 08:21:00 180.3 cm [facility] [place] [facility] Body weight 2020-12-12 08:21:00 103.42 kg [facility] [place] [facility] BMI 2020-12-12 08:21:00 31.80 kg/m2 [facility] [place] [facility] Systolic blood 2020-12-17 18:35:00 139 mm[Hg] Univer sity of pressure [place] [facility] Diastolic blood 2020-12-17 18:35:00 87 mm[Hg] Unive rsity of pressure [place] [facility] Heart rate 2020-12-17 18:35:00 110 /min [facility] [place] [facility] Body temperature 2020-12-17 18:35:00 37.72 [place] Univ ers[facility] [place] [facility] Respiratory rate 2020-12-17 18:35:00 18 /min Univ ersity [facility] [place] [facility] Oxygen saturation in 2020-12-17 18:35:00 93 /min University of Arterial blood by [facility] Pulse oximetry Branch Body height 2020-12-12 08:21:00 180.3 cm [facility] [place] [facility] Body weight 2020-12-12 08:21:00 103.42 kg [facility] [place] [facility] BMI 2020-12-12 08:21:00 31.80 kg/m2 [facility] [place] [facility] Systolic blood 2020-08-23 19:27:00 140 mm[Hg] Univer sity of [facility] [place] [facility] Diastolic blood 2020-08-23 19:27:00 79 mm[Hg] Unive rsity of [facility] [place] [facility] Heart rate 2020-08-23 19:27:00 99 /min [facility] [place] [facility] Body temperature 2020-08-23 19:27:00 36 [place] [facility] [place] [facility] Respiratory rate 2020-08-23 19:27:00 18 /min Univ ersity [facility] [place] [facility] Oxygen saturation in 2020-08-23 19:27:00 93 /min University of Arterial blood by [facility] Pulse oximetry Branch Body weight 2020-08-21 07:20:00 104.962 kg [facility] [place] [facility] BMI 2020-08-21 07:20:00 32.27 kg/m2 [facility] [place] [facility] Systolic blood 2020-08-23 19:27:00 140 mm[Hg] Univer sity of pressure [facility] Diastolic blood 2020-08-23 19:27:00 79 mm[Hg] [facility] pressure [facility] Heart rate 2020-08-23 19:27:00 99 /min [facility] Body temperature 2020-08-23 19:27:00 36 [place] [facility] Respiratory rate 2020-08-23 19:27:00 18 /min [facility] Oxygen saturation in 2020-08-23 19:27:00 93 /min [facility] blood by [facility] Pulse oximetry [place] Body weight 2020-08-21 07:20:00 104.962 kg [facility] BMI 2020-08-21 07:20:00 32.27 kg/m2 [facility] Procedures Procedure Date / Time Performing Clinician Source Performed POCT GLUCOSE (AUTOMATED) 2020-12-17 15:42:00 Favio Harrisonal G Uni [facility] BASIC METABOLIC PANEL 2020-12-17 10:45:00 Paul Bean [facility] (NA, K, CL, CO2, GLUCOSE, [place] Medica l Branch BUN, CREATININE, CA) CBC WITH DIFF 2020-12-17 10:45:00 Paul Bean [facility] POCT GLUCOSE (AUTOMATED) 2020-12-17 02:36:00 Harrison [facility] Uni [facility] XR TIBIA FIBULA 2 VW LEFT 2020-12-16 23:38:00 [facility]SE (AUTOMATED) 2020-12-16 23:20:00 Harrison, [facility]al [facility] POCT GLUCOSE (AUTOMATED) 2020-12-16 20:10:00 Harrison, Premal [facility] POCT GLUCOSE (AUTOMATED) 2020-12-16 14:43:00 [facility] BASIC METABOLIC PANEL 2020-12-16 13:51:00 Paul Bean [facility] (NA, K, CL, CO2, GLUCOSE, [place] Medica l Branch BUN, CREATININE, CA) CBC WITH DIFF 2020-12-16 13:51:00 Paul Bean [facility] POCT GLUCOSE (AUTOMATED) 2020-12-16 04:00:00 Harrison, Premal G Uni versity of [facility] POCT GLUCOSE (AUTOMATED) 2020-12-16 00:14:00 Harrison, Premal G Uni versity [facility] CHEST PULMONARY 2020-12-15 22:29:[address] [facility] ANGIOGRAM [facility] POCT GLUCOSE (AUTOMATED) 2020-12-15 19:26:00 Harrison, Premal [facility] POCT GLUCOSE (AUTOMATED) 2020-12-15 15:13:00 Krupa, Premal G Uni [facility] HB ECG ROUTINE & RHYTHM 2020-12-15 14:25:27 Cailin Romo [facility] MAGNESIUM 2020-12-15 12:01:00 Paul Bean Sivakumar [facility] BASIC METABOLIC PANEL 2020-12-15 12:01:00 Paul Bean [facility] (NA, K, CL, CO2, GLUCOSE, [place] [facility] BUN, CREATININE, CA) CBC WITH DIFF 2020-12-15 12:01:00 Paul Bean [facility] POCT GLUCOSE (AUTOMATED) 2020-12-15 03:57:00 Harrison, Premal G Uni versity of [facility] POCT GLUCOSE (AUTOMATED) 2020-12-14 23:31:00 Harrison, Premal G Uni versity of [facility] POCT GLUCOSE (AUTOMATED) 2020-12-14 19:08:00 Harrison, Premal G Uni versity of [facility] POCT GLUCOSE (AUTOMATED) 2020-12-14 15:11:00 Harrison, Premal G Uni versity of [facility] POCT GLUCOSE (AUTOMATED) 2020-12-14 02:36:00 Harrison, Premal G Uni versity of [facility] POCT GLUCOSE (AUTOMATED) 2020-12-13 23:32:00 Harrison, Premal G Uni versity of [facility] POCT GLUCOSE (AUTOMATED) 2020-12-13 18:08:00 Harrison, Premal G Uni versity of [facility] BASIC METABOLIC PANEL 2020-12-13 15:39:00 Paul Bean [facility] (NA, K, CL, CO2, GLUCOSE, [place] [facility] BUN, CREATININE, CA) CBC WITH DIFF 2020-12-13 15:39:00 Paul Bean [facility] POCT GLUCOSE (AUTOMATED) 2020-12-13 14:06:00 Harrison, Premal G Uni versity of [facility] POCT GLUCOSE (AUTOMATED) 2020-12-13 03:07:00 Harrison, Premal G Uni versity of [facility] POCT GLUCOSE (AUTOMATED) 2020-12-12 23:52:00 Harrison, Premal G Uni versity of [facility] POCT GLUCOSE (AUTOMATED) 2020-12-12 20:28:00 Harrison, Premal G Uni versity of [facility] POCT GLUCOSE (AUTOMATED) 2020-12-12 19:14:00 Harrison, Premal G Uni versity of [facility] POCT GLUCOSE (AUTOMATED) 2020-12-12 14:33:00 Harrison, Premal G Uni versity of [facility] MAGNESIUM 2020-12-12 08:58:00 Paul Bean [facility] BASIC METABOLIC PANEL 2020-12-12 08:58:00 Paul Bean [facility] (NA, K, CL, CO2, GLUCOSE, [place] [facility] BUN, CREATININE, CA) CBC WITH DIFF 2020-12-12 08:58:00 Paul Bean [facility] US ABDOMEN LIMITED 2020-12-12 06:32:26 Paul Bean [facility] POCT GLUCOSE (AUTOMATED) 2020-12-12 03:40:00 Harrison, Premal G Uni versity of [facility] POCT GLUCOSE (AUTOMATED) 2020-12-12 00:06:00 Harrison, Premal G Uni versity of [facility] XR HIPS 3 VW LEFT 2020-12-11 20:20:00 Paul Bean Sivakumar [facility] HB ECG ROUTINE & RHYTHM 2020-12-11 20:04:06 [facility] STRIP [facility] VITAMIN B6, PLASMA 2020-12-11 19:17:00 [facility] POCT GLUCOSE (AUTOMATED) 2020-12-11 19:06:00 Vika Harrison [facility] CREATINE KINASE 2020-12-11 18:22:00 Parvez [facility] VITAMIN B12, LEVEL 2020-12-11 18:22:00 Vikas [facility] FOLATE 2020-12-11 18:22:00 [facility] THYROID STIMULATING 2020-12-11 18:22:00 [facility] HORMONE [facility] PROCALCITONIN 2020-12-11 18:22:00 Vikas [facility] VITAMIN B1 (THIAMINE), 2020-12-11 18:22:00 [facility]LOOD [facility] CT HEAD WO CONTRAST 2020-12-11 14:07:35 Sweetie Stout [facility] URINALYSIS 2020-12-11 13:44:00 Singer [facility] URINE CULTURE 2020-12-11 13:44:00 Singer [facility] COVID-19 (ID NOW RAPID 2020-12-11 12:31:00 Paco Lacey [facility] TESTING) Medical Branch LAB ONLY COVID 2020-12-11 12:31:00 Singer [facility] INTERPRETATION [facility] XR CHEST 1 VW 2020-12-11 12:07:24 Singer [facility] BLOOD CULTURE SCREEN 2020-12-11 12:02:[address] [facility] MAGNESIUM 2020-12-11 12:02:00 Vikas [facility] FERRITIN SERUM 2020-12-11 12:02:00 Paul Bean [facility] Kaley [facility] COMP. METABOLIC PANEL 2020-12-11 12:02:00 Singer [facility] ([id number]) [facility] CBC WITH DIFF 2020-12-11 12:02:00 Singer [facility] LACTIC ACID WHOLE BLOOD 2020-12-11 12:02:00 Singer Paco [facility] BLOOD CULTURE SCREEN 2020-12-11 11:42:[address] [facility] EMERGENCY SERVICES 2020-12-11 06:01:00 Doctor Unassigned, [facility] AGREEMENTS AND [place] [facility] [place] AUTHORIZATIONS HOSPITAL ADMISSION 2020-12-11 06:01:00 Doctor Unaowen, [facility] Name Medical [place] HOME HEALTH - OTHER 2020-11-11 06:01:00 Doctor Tabitha [facility] Name Medical [place] HOME [facility] - OTHER 2020-10-30 06:01:00 Doctor Unaowen [facility] Name Medical [place] EXTERNAL PROVIDER RECORDS 2020-09-01 06:01:00 Doctor Tabitha, [facility] Name [facility] POCT GLUCOSE (AUTOMATED) 2020-08-23 18:09:00 Kelly Washington [facility] POCT GLUCOSE (AUTOMATED) 2020-08-23 14:14:00 Kelly Washington [facility] MAGNESIUM 2020-08-23 11:18:00 Ramya [facility] BASIC METABOLIC PANEL 2020-08-23 11:18:00 Alb[place] [facility] (NA, K, CL, CO2, GLUCOSE, Medica l Branch BUN, CREATININE, CA) CBC WITH DIFF 2020-08-23 11:18:00 [place] [facility] POCT GLUCOSE (AUTOMATED) 2020-08-23 10:21:00 Kelly Washington [facility] POCT GLUCOSE (AUTOMATED) 2020-08-23 05:55:00 Kelly Washington [facility] POCT GLUCOSE (AUTOMATED) 2020-08-23 03:00:00 Stefania [facility] PO[facility]SE (AUTOMATED) 2020-08-22 23:38:00 Bety Washingtonmarie Elias versity of [facility] POCT GLUCOSE (AUTOMATED) 2020-08-22 19:04:00 Bety [facility]ie [facility] POCT GLUCOSE (AUTOMATED) 2020-08-22 13:49:00 Kelly Washington Jada versity [facility] MAGNESIUM 2020-08-22 10:10:00 [facility] HE[facility]IC FUNCTION PANEL 2020-08-22 10:10:00 Aguila Melchor [facility] ([id number]) (ALB,T.PRO,BILI Medical Branch T,BU/BC,ALT,AST,ALK PHOS) BASIC METABOLIC PANEL 2020-08-22 10:10:00 [facility] (NA, K, CL, CO2, GLUCOSE, Medica l Branch BUN, CREATININE, CA) LIPID PANEL ([id number])(TOTAL 2020-08-22 10:10:00 [place], [facility] CHOLESTEROL, Medical [place] TRIGLYCERIDES, HDL) CBC WITH DIFF 2020-08-22 10:10:00 [facility] [place] POCT GLUCOSE (AUTOMATED) 2020-08-22 10:10:00 Bety Washingtonmarie Elias [facility] POCT GLUCOSE (AUTOMATED) 2020-08-22 07:13:00 Kelly Washington Jada versity [facility] POCT GLUCOSE (AUTOMATED) 2020-08-22 02:24:00 Bety Washingtonmarie Elias versity [facility] POCT GLUCOSE (AUTOMATED) 2020-08-21 23:40:00 Kelly Washington Jada versity of [facility] POCT GLUCOSE (AUTOMATED) 2020-08-21 18:10:00 Kelly Washington Jada versity [facility] POCT GLUCOSE (AUTOMATED) 2020-08-21 13:39:00 Kelly Washington Jada versity [facility] ETHANOL 2020-08-21 12:35:00 [facility] ACT[facility] 2020-08-21 12:35:00 Stefania [facility] GALV ONLY - SYPHILIS 2020-08-21 12:35:00 Stefania [facility] IGG/IGM [facility] LACTATE DEHYDROGENASE 2020-08-21 10:09:00 Ramya, [facility] GALV/CLC ONLY - URINE 2020-08-21 10:09:00 Richie [facility] DRUG (IMMUNOASSAY) - 4 ER Medica l Branch PANEL URINALYSIS 2020-08-21 10:09:00 Ramya, [facility] URINE CULTURE 2020-08-21 10:09:00 Ramya, [facility] PROCALCITONIN 2020-08-21 10:09:00 [place], [facility] POCT GLUCOSE (AUTOMATED) 2020-08-21 09:41:00 Stefania Kelly [facility] PROTHROMBIN TIME / INR 2020-08-21 08:32:00 [place], [facility] ACTIVATED PARTIAL 2020-08-21 08:32:00 [place], [facility] C-REACTIVE PROTEIN 2020-08-21 08:31:00 Ramya, [facility] HEPATIC FUNCTION PANEL 2020-08-21 08:31:00 [place], [facility] ([id number]) (ALB,T.PRO,BILI Medical Branch T,BU/BC,ALT,AST,ALK PHOS) BASIC METABOLIC PANEL 2020-08-21 08:31:00 [place], [facility] (NA, K, CL, CO2, GLUCOSE, [facility] BUN, CREATININE, CA) SEDIMENTATION RATE 2020-08-21 08:31:00 [place], [facility] CBC WITH DIFF 2020-08-21 08:31:00 [place], [facility] GLYCOSYLATED HEMOGLOBIN 2020-08-21 08:31:00 [place], [facility] (A1C) Medical Branch HIV 1/2 AG-AB WITH REFLEX 2020-08-21 08:31:00 Kelly [place] [facility] [place] [facility] COVID-19 (ID NOW RAPID 2020-08-21 08:20:00 Haily Bui [facility] TESTING) Medical Branch LAB ONLY COVID 2020-08-21 08:20:00 [place] [facility] [place] INTERPRETATION [facility] Branch Encounters Start End Encounter Admission Attending Care Care Encounter Source Date/Time Date/Time Type Type Clinicians Facility Department ID 2020-08-21 Inpatient [facility] [id number] Univers 01:07:00 KELLY brandenana [facility] 2021-08-22 2021-08-22 Emergency X GIRISHRUST ERT [id number] Univers 06:21:00 08:02:00 SWEETIE cantu [facility] 2021-08-22 2021-08-22 Emergency GirishRUST [id number] Univers 06:21:00 08:02:00 Sweetie LOTT [id number] i ty of [place] [id number] [facility] 084 Branch 2021-08-09 2021-08-09 Outpatient JACQUELYN HAINES [facility] [id number] [facility] 10:27:03 10:27:03 ADRIANA lopez of Medicin e 2020-12-28 2020-12-28 Telephone YolisRUST 1.2.840.114 [id number] 00:00:00 00:00:00 Calvin H PRIMARY [id number] CARE 4.2.7.2.686 PAVILLION [id number] 220 2020-12-28 2020-12-28 Telephone YolisRUST 1.2.840.114 [id number] Univers 00:00:00 00:00:00 Calvin H PRIMARY [id number] it y of C[place]7.2.[place] [id number] Ut dical 220 Branch 2020-12-19 2020-12-19 Transition Tuan Peters 1.2.840.114 [id number] 00:00:00 00:00:00 of Care Ruchi Braswell [id number] [place] 4.2.7.2.686 [id number] 2020-12-19 2020-12-19 Transition Tuan Peters 1.2.840.114 [id number] Univers 00:00:00 00:00:00 of Care Ruchi Braswell [id number] it y of [place]2.[place] [id number] [facility] 403 Branch 2020-12-11 2020-12-17 [facility] Paco Lacey 1.2.840.1 [id number] 05:11:00 16:00:00 Encounter Vika [place] [id number] [facility] 4.2.7.2.686 [id number] [facility] 2020-12-11 2020-12-17 [facility] Paco Lacey 1.2.840.1 [id number] [facility] 05:11:00 16:00:00 Encounter Vika [place] 350.1.13.10 ity [facility] 4.2.[address] [place] [address] [id number] [facility] 096 Branch 2020-12-11 2020-12-17 Inpatient X [facility] [id number] Univers 05:11:00 16:00:00 pepe [facility] 2020-11-16 2020-11-16 Emergency [facility] [id number] [facility] 09:31:00 09:31:00 PACO cantu [facility] 2020-11-11 2020-11-11 Orders Doctor CUI 1.2.840.114 [id number] 00:00:00 00:00:00 Only UnassignedMONIQUE 350.1.13.10 [place] [facility] 4.2.7.2.686 [id number] 2020-11-11 2020-11-11 Orders Doctor CUI 1.2.840.114 [id number] [facility] 00:00:00 00:00:00 Only Unassigned, MONIQUE 350.1.13.10 ity of [place] [facility] 4.2.7.2.686 Jeff as [id number] [address] 2020-11-07 2020-11-07 [facility] [id number] 00:00:00 00:00:00 Angi Lott 350.1.13.10 [place] 4.2.7.2.686 Professio [id number] [address] 2020-11-07 2020-11-07 Telephone [facility] [id number] [facility] 00:00:00 00:00:00 Angi Lott 350.1.13.10 ity of [place] Professio [id number] Ut dic[address] 2020-10-30 2020-10-30 Orders Doctor BASILIA 1.2.840.114 [id number] 00:00:00 00:00:00 Only Unassigned, MONIQUE 350.1.13.10 [facility] 4.2.7.2.686 [id number] [facility] 2020-10-30 2020-10-30 Orders Doctor BASILIA 1.2.840.114 [id number] [facility] 00:00:00 00:00:00 Only Unassigned, MONIQUE 350.1.13.10 ity of [place] [facility] 4.2.7.2.686 Jeff as [id number] [address] 2020-09-26 2020-09-26 Telephone Eliot [facility] 1.2.840.114 [id number] 00:00:00 00:00:00 [facility] 350.1.13.[address] [facility]IN[facility] [id number] [facility] 2020-09-26 2020-09-26 Telephone Eliot [facility] 1.2.840.114 [id number] [facility] 00:00:00 00:00:00 [facility] 350.1.13.10 i ty of CLINICS 4[place]2.7.2.686 [place] [id number] [address] 2020-09-01 2020-09-01 Orders Doctor BASILIA 1.2.840.114 [id number] 00:00:00 00:00:00 Only Unassigned, MONIQUE 350.1.13.10 [place] [facility] 4.2.7.2.686 [id number] 2020-09-01 2020-09-01 Orders Doctor BASILIA 1.2.840.114 [id number] Univers 00:00:00 00:00:00 Only Unassigned, MONIQUE 350.1.13.10 ity of [place] [facility] 4.2.7.2.686 Jeff as [id number] [facility] 009 Branch 2020-08-25 2020-08-25 Transition Tuan Peters 1.2.840.114 [id number] 00:00:00 00:00:00 of Care Ruchi Braswell 350.1.13.10 [place] 4.2.7.2.686 [id number] 2020-08-25 2020-08-25 Transition Tuan Peters 1.2.840.114 [id number] Univers 00:00:00 00:00:00 of Care Ruchi Braswell 350.1.13.10 it y of [place].2.[place] [id number] [facility] 403 [place] 2020-08-21 2020-08-23 [facility] Ayleen 1.2.840.114 [id number] 01:07:00 18:35:00 Encounter Kelly Monique 350.1.13.10 [facility] 4.2.7.2.686 [id number] [facility] 2020-08-21 2020-08-23 [facility] 1. 2.840.114 [id number] [facility] 01:07:00 18:35:00 Encounter Mukul Gallardo 350.1.13. 10 ity of [facility] 4.2.7.2.686 Jeff as [id number] [address] Results Test Description Test Time Test Comments Results Result Comments Source POCT GLUCOSE (AUTOMATED) 2020-12-17 15:43:35 Test Item Value Reference Range Interpretation Comme nts POCT GLU (test code = 0848222179) 129 mg/dL 70-110 H Lab Interpretation (test code = 40296-7) Abnormal [facility] (NA, K, CL, CO2, GLUCOSE, BUN, CREATININE, CA)2020-12-17 11:45:07 Test Item Value Reference Range Interpretation Comments NA (test code = 137 mmol/L 135-145 4706632255) K (test code = 3.5 mmol/L 3.5-5.0 4537009152) CL (test code = 103 mmol/L 98-108 8264879928) CO2 TOTAL (test code = 26 mmol/L 23-31 2107022922) AGAP (test code = 2-16 6612927872) BUN (test code = 11 mg/dL 7-23 0297055432) GLUCOSE (test code = 175 mg/dL 70-110 H 8217674639) CREATININE (test code = 0.62 mg/dL 0.60-1.25 6466744184) CALCIUM (test code = 9.0 mg/dL 8.6-10.6 6319160521) eGFR Calculation mL/min/1.73m2 (Non-) (test code = 6924197365) eGFR Calculation mL/min/1.73m2 () (test code = 2745581912) JAMES (test code = JAMES) Association of [...] tests). Lab Interpretation Abnormal (test code = 64834-7) [facility] WITH [id number] 11:07:27 Test Item Value Reference Range Interpretation [...] RDW-SD (test code = 45.2 fL 38.5-51.6 36148-6) RDW-CV (test code = 16.9 % 12.1-15.4 H 788-0) PLT (test code = See_Comment H [Automated 777-3) message] The sy stem which generated this result transmitted reference range : 150 - 328 10*3/ ?L. The reference r torito was not used to interpret this result as normal/abnormal . MPV (test code = 8.1 fL 9.8-13.0 L 09217-2) NRBC/100 WBC (test See_Comment [Automat ed code = 2959197319) message] The system which generated this result transmitted reference range : 0.0 - 10.0 /100 WBCs. The refer ence range was not u sed to interpret th is result as normal/abnormal . NRBC x10^3 (test code <0.01 See_Comment [Auto mated = 9704190300) message] The s ystem which generated this result transmitted reference range : 10*3/?L. The reference range was not used to interpret this result as normal/abnormal . GRAN MAT (NEUT) % 72.8 % (test code = 770-8) IMM GRAN % (test code 0.60 % = 4405551292) LYMPH % (test code = 18.4 % 736-9) MONO % (test code = 5.7 % 5905-5) EOS % (test code = 1.8 % 713-8) BASO % (test code = 0.7 % 706-2) GRAN MAT x10^3(ANC) 8.23 10*3/uL 1.99-6.95 H (test code = 0454250450) IMM GRAN x10^3 (test 0.07 10*3/uL 0.00-0.06 H code = 6770507750) LYMPH x10^3 (test code 2.08 10*3/uL 1.09-3.23 = 731-0) MONO x10^3 (test code 0.65 10*3/uL 0.36-1.02 = 742-7) EOS x10^3 (test code = 0.20 10*3/uL 0.06-0.53 711-2) BASO x10^3 (test code 0.08 10*3/uL 0.01-0.09 = 704-7) Lab Interpretation Abnormal (test code = 96199-1) [facility] 06:03:38 Test Item Value Reference Range Interpretation Comments POCT GLU (test code = 4909065966) 75 mg/dL 70-110 Lab Interpretation (test code = Normal 91484-8) [facility], [id number] 00:01:00 Test Item Value Reference Range Interpretation Comments VIT B6 (test code = 13.1 nmol/L 20.0-125.0 L INTERPRE TIVE 16293-6) INFORMATION: Vi tamin B6 (Pyridoxal 5-Phosphate) Pyridoxal 5'-phosphate me asured in a specimen collected follo wing an 8-hour or overnight fast accurately clara keene vitamin B6 nutritional sta tus. Non-fasting spe cimen concentration reflects recent vitamin intake. This test was develo ped and its perform ance characteristics determined by [facility]. I t has not been cleare d or approved by the [place] Food and Drug Administration. This test was perfor med in a CLIA certifie d laboratory and is intended for cl inical purposes.Perfor med By: [employer] [place] [address] [id number] Director: Namrata Klein MD Lab Interpretation Abnormal (test code = 59986-4) [facility] Worth[facility] TIBIA FIBULA 2 VW [id number] 23:57:09 Tricompartmental knee joint osteoarthrosis.XR TIBIA FIBULA [...] No acute fracture or dislocation.IMPRESSIONTricompartmental knee joint osteoarthrosis.[facility] GLUCOSE (AUTOMATED) 2020-12-16 23:27:00 Test Item Value Reference Range Interpretation Comments POCT GLU (test code = 1574743842) 114 mg/dL 70-110 H Lab Interpretation (test code = Abnormal 60466-7) [facility] GLUCOSE (AUTOMATED)2020-12-16 20:12:00 Test Item Value Reference Range Interpretation Comments POCT GLU (test code = 1446616714) 105 mg/dL 70-110 Lab Interpretation (test code = Normal 24816-5) [facility] GLUCOSE (AUTOMATED)2020-12-16 14:44:00 Test Item Value Reference Range Interpretation Comments POCT GLU (test code = 2287515366) 153 mg/dL 70-110 H Lab Interpretation (test code = Abnormal 55176-9) [facility] METABOLIC PANEL (NA, K, CL, CO2, GLUCOSE, BUN, CREATININE, CA)2020-12-16 14:23:00 Test Item Value Reference Range Interpretation Comments NA (test code = 138 mmol/L 135-145 9709075189) K (test code = 3.4 mmol/L 3.5-5.0 L 2566491872) CL (test code = 100 mmol/L 98-108 1743369552) CO2 TOTAL (test code = 31 mmol/L 23-31 5277254674) AGAP (test code = 2-16 8868353353) BUN (test code = 11 mg/dL 7-23 0514637585) GLUCOSE (test code = 162 mg/dL 70-110 H 7422971925) CREATININE (test code = 0.64 mg/dL 0.60-1.25 4317613264) CALCIUM (test code = 8.9 mg/dL 8.6-10.6 5238014071) eGFR Calculation mL/min/1.73m2 (Non-) (test code = 8374547176) eGFR Calculation mL/min/1.73m2 () (test code = 2919031139) JAMES (test code = JAMES) Association of [...] tests). Lab Interpretation Abnormal (test code = 44313-3) [facility] WITH [id number] 14:05:00 Test Item Value Reference Range Interpretation [...] RDW-SD (test code = 45.4 fL 38.5-51.6 79713-4) RDW-CV (test code = 17.0 % 12.1-15.4 H 788-0) PLT (test code = See_Comment H [Automated 777-3) message] The sy stem which generated this result transmitted reference range : 150 - 328 10*3/ ?L. The reference r torito was not used to interpret this result as normal/abnormal . MPV (test code = 8.0 fL 9.8-13.0 L 39523-8) NRBC/100 WBC (test See_Comment [Automat ed code = 9796570263) message] The system which generated this result transmitted reference range : 0.0 - 10.0 /100 WBCs. The refer ence range was not u sed to interpret th is result as normal/abnormal . NRBC x10^3 (test code <0.01 See_Comment [Auto mated = 8750848105) message] The s ystem which generated this result transmitted reference range : 10*3/?L. The reference range was not used to interpret this result as normal/abnormal . GRAN MAT (NEUT) % 70.0 % (test code = 770-8) IMM GRAN % (test code 0.70 % = 4039127946) LYMPH % (test code = 20.5 % 736-9) MONO % (test code = 7.1 % 5905-5) EOS % (test code = 1.0 % 713-8) BASO % (test code = 0.7 % 706-2) GRAN MAT x10^3(ANC) 9.44 10*3/uL 1.99-6.95 H (test code = 8810617012) IMM GRAN x10^3 (test 0.09 10*3/uL 0.00-0.06 H code = 3916124537) LYMPH x10^3 (test code 2.76 10*3/uL 1.09-3.23 = 731-0) MONO x10^3 (test code 0.96 10*3/uL 0.36-1.02 = 742-7) EOS x10^3 (test code = 0.13 10*3/uL 0.06-0.53 711-2) BASO x10^3 (test code 0.10 10*3/uL 0.01-0.09 H = 704-7) Lab Interpretation Abnormal (test code = 57040-8) [facility] Worth[facility] Culture - Peripheral # [id number] 13:01:00 Test Item Value Reference Range Interpretation Comments Blood Culture-Aerobic No organisms No growth Previo us (test code = 29910-4) isolated prelim inary verified result was Culture In Progress on 12/11/2020 at 100 1 CSTPrevious preliminary verified result was No growth a t 24 hours on 12/12/2020 at 070 1 CSTPrevious preliminary verified result was No growth a t 48 hours on 12/13/2020 at 070 1 CSTPrevious preliminary verified result was No growth a t 72 hours on 12/14/2020 at 070 1 DIRECTOR AUTO Blood No organisms No growth Previous Culture-Anaerobic isolated preliminar y (test code = 93493-1) verifi ed result was Culture In Progress on 12/11/2020 at 100 1 CSTPrevious preliminary verified result was No growth a t 24 hours on 12/12/2020 at 070 1 CSTPrevious preliminary verified result was No growth a t 48 hours on 12/13/2020 at 070 1 CSTPrevious preliminary verified result was No growth a t 72 hours on 12/14/2020 at 070 1 DIRECTOR AUTO Lab Interpretation Normal (test code = 03127-1) [facility] Culture - Peripheral # [id number] 13:01:00 Test Item Value Reference Range Interpretation Comments Blood Culture-Aerobic No organisms No growth Previo us (test code = 90559-2) isolated prelim inary verified result was Culture In Progress on 12/11/2020 at 100 1 CSTPrevious preliminary verified result was No growth a t 24 hours on 12/12/2020 at 070 1 CSTPrevious preliminary verified result was No growth a t 48 hours on 12/13/2020 at 070 1 CSTPrevious preliminary verified result was No growth a t 72 hours on 12/14/2020 at 070 1 DIRECTOR AUTO Blood No organisms No growth Previous Culture-Anaerobic isolated preliminar y (test code = 26757-8) verifi ed result was Culture In Progress on 12/11/2020 at 100 1 CSTPrevious preliminary verified result was No growth a t 24 hours on 12/12/2020 at 070 1 CSTPrevious preliminary verified result was No growth a t 48 hours on 12/13/2020 at 070 1 CSTPrevious preliminary verified result was No growth a t 72 hours on 12/14/2020 at 070 1 DIRECTOR AUTO Lab Interpretation Normal (test code = 91398-7) [facility] GLUCOSE (AUTOMATED)2020-12-16 04:01:00 Test Item Value Reference Range Interpretation Comments POCT GLU (test code = 5431666604) 156 mg/dL 70-110 H Lab Interpretation (test code = Abnormal 11139-9) [facility]2020-12-16 00:24:00 Test Item Value Reference Range Interpretation Comments POCT GLU (test code = 5119498750) 115 mg/dL 70-110 H Lab Interpretation (test code = Abnormal 28230-3) [facility] CHEST PULMONARY [id number] 23:34:55No pulmonary emboli. No interval change in [...] stableappearance of intra and extrahepatic biliary ductal dilatation.[facility] GLUCOSE (AUTOMATED)2020-12-15 19:28:00 Test Item Value Reference Range Interpretation Comments POCT GLU (test code = 8135749417) 140 mg/dL 70-110 H Lab Interpretation (test code = Abnormal 48533-9) [facility]2021-[facility]-05 15:26:00 Test Item Value Reference Range Interpretation Comments MAGNESIUM (test code = 5213343662) 2.2 mg/dL 1.7-2.4 Lab Interpretation (test code = Normal 47909-6) [facility] GLUCOSE (AUTOMATED)2020-12-15 15:15:00 Test Item Value Reference Range Interpretation Comments POCT GLU (test code = 8114584359) 181 mg/dL 70-110 H Lab Interpretation (test code = Abnormal 76800-6) [facility] METABOLIC PANEL (NA, K, CL, CO2, GLUCOSE, BUN, CREATININE, CA)2020-12-15 13:07:00 Test Item Value Reference Range Interpretation Comments NA (test code = 136 mmol/L 135-145 2596708605) K (test code = 3.6 mmol/L 3.5-5.0 3577347823) CL (test code = 96 mmol/L 98-108 L 1584875585) CO2 TOTAL (test code = 29 mmol/L 23-31 1344957757) AGAP (test code = 2-16 9155408065) BUN (test code = 12 mg/dL 7-23 3214672608) GLUCOSE (test code = 183 mg/dL 70-110 H 9385317505) CREATININE (test code = 0.70 mg/dL 0.60-1.25 5791084367) CALCIUM (test code = 9.2 mg/dL 8.6-10.6 2885441794) eGFR Calculation mL/min/1.73m2 (Non-) (test code = 4197089282) eGFR Calculation mL/min/1.73m2 () (test code = 2973716551) JAMES (test code = JAMES) Association of [...] tests). Lab Interpretation Abnormal (test code = 24401-7) [facility] WITH [id number] 12:32:00 Test Item Value Reference Range Interpretation Comments WBC (test code = See_Comment H [Automated 4490-2) message] The system which generated this result transmit ronan reference range : 4.20 - 10.70 10*3/?L. The reference range was not used to interpret this result as normal/abnormal . RBC (test code = See_Comment H [Automated 379-8) message] The system which generated this result [...] RDW-SD (test code = 44.4 fL 38.5-51.6 90418-1) RDW-CV (test code = 17.7 % 12.1-15.4 H 788-0) PLT (test code = See_Comment H [Automated 777-3) message] The system which generated this result transmit ronan reference range : 150 - 328 10*3/ ?L. The reference range was not u sed to interpret th is result as normal/abnormal . MPV (test code = 8.1 fL 9.8-13.0 L 79849-0) NRBC/100 WBC (test See_Comment [Automat ed code = 3871713763) message] The system which generated this result transmit ronan reference range : 0.0 - 10.0 /100 WBCs. The reference range was not used to interpret this result as normal/abnormal . NRBC x10^3 (test code <0.01 See_Comment [Auto mated = 6311934405) message] The system which generated this result transmit ronan reference range : 10*3/?L. The reference range was not used to interpret this result as normal/abnormal . GRAN MAT (NEUT) % 74.5 % (test code = 770-8) IMM GRAN % (test code 0.70 % = 4344600803) LYMPH % (test code = 17.4 % 736-9) MONO % (test code = 6.8 % 5905-5) EOS % (test code = 0.2 % 713-8) BASO % (test code = 0.4 % 706-2) GRAN MAT x10^3(ANC) 11.99 10*3/uL 1.99-6.95 H (test code = 6029804928) IMM GRAN x10^3 (test 0.11 10*3/uL 0.00-0.06 H code = 0280693279) LYMPH x10^3 (test code 2.80 10*3/uL 1.09-3.23 = 731-0) MONO x10^3 (test code 1.10 10*3/uL 0.36-1.02 H = 742-7) EOS x10^3 (test code = 0.03 10*3/uL 0.06-0.53 L 711-2) BASO x10^3 (test code 0.06 10*3/uL 0.01-0.09 = 704-7) Lab Interpretation Abnormal (test code = 31015-0) [facility] GLUCOSE (AUTOMATED)2020-12-15 04:16:00 Test Item Value Reference Range Interpretation Comments POCT GLU (test code = 8625536773) 200 mg/dL 70-110 H Lab Interpretation (test code = Abnormal 34898-2) [facility] (THIAMINE), WHOLE [id number] 00:30:00 Test Item Value Reference Range Interpretation Comments Vitamin B1, Whole 136 nmol/L 70-180 INTERPRETI VE INFORMATION: Blood (test code = Vitamin B 1, Whole Blood 16374-4) This assay júnior ures the concentration o f thiamine diphosphate (TD P), the primary active form of vitamin B1. Nick roximately 90 percent of v itamin B1 present in whol e blood is TDP. Thiamine a nd thiamine monoph osphate, which comprise the remaining 10 pe rcent, are not measured. T his test was developed a nd its performance characteristics determined by [facility]. I t has not been cleared or approved by the [place] Food and Drug Administration. This test was performed i n a CLIA certified labor atory and is intended for clinical purposes.Perfor med By: [facility] [place], [place] [address]X aboratory Director: Namrata Klein MD [facility] GLUCOSE (AUTOMATED)2020-12-14 23:35:00 Test Item Value Reference Range Interpretation Comments POCT GLU (test code = 9094869555) 151 mg/dL 70-110 H Lab Interpretation (test code = Abnormal 73103-1) [facility] GLUCOSE (AUTOMATED)2020-12-14 19:19:00 Test Item Value Reference Range Interpretation Comments POCT GLU (test code = 3067704907) 193 mg/dL 70-110 H Lab Interpretation (test code = Abnormal 45796-2) [facility] GLUCOSE (AUTOMATED)2020-12-14 15:22:00 Test Item Value Reference Range Interpretation Comments POCT GLU (test code = 4365470985) 221 mg/dL 70-110 H Lab Interpretation (test code = Abnormal 84019-5) [facility] GLUCOSE (AUTOMATED)2020-12-14 02:37:00 Test Item Value Reference Range Interpretation Comments POCT GLU (test code = 5019423497) 210 mg/dL 70-110 H Lab Interpretation (test code = Abnormal 33738-6) [facility] GLUCOSE (AUTOMATED)2020-12-13 23:33:00 Test Item Value Reference Range Interpretation Comments POCT GLU (test code = 2842757820) 182 mg/dL 70-110 H Lab Interpretation (test code = Abnormal 44311-0) [facility] GLUCOSE (AUTOMATED)2020-12-13 18:09:00 Test Item Value Reference Range Interpretation Comments POCT GLU (test code = 2383749563) 150 mg/dL 70-110 H Lab Interpretation (test code = Abnormal 45766-3) [facility] METABOLIC PANEL (NA, K, CL, CO2, GLUCOSE, BUN, CREATININE, CA)2020-12-13 16:27:00 Test Item Value Reference Range Interpretation Comments NA (test code = 136 mmol/L 135-145 2692649838) K (test code = 3.7 mmol/L 3.5-5.0 6644702862) CL (test code = 96 mmol/L 98-108 L 4493267956) CO2 TOTAL (test code = 29 mmol/L 23-31 3153161599) AGAP (test code = 2-16 0532095719) BUN (test code = 6 mg/dL 7-23 L 7742466928) GLUCOSE (test code = 212 mg/dL 70-110 H 5148895878) CREATININE (test code = 0.61 mg/dL 0.60-1.25 7213867887) CALCIUM (test code = 9.5 mg/dL 8.6-10.6 3570117418) eGFR Calculation mL/min/1.73m2 (Non-) (test code = 0880053341) eGFR Calculation mL/min/1.73m2 () (test code = 6153128495) JAMES (test code = JAMES) Association of [...] tests). Lab Interpretation Abnormal (test code = 92727-8) [facility] WITH [id number] 16:10:00 Test Item Value Reference Range Interpretation Comments WBC (test code = See_Comment H [Automated 8890-2) message] The sy stem which generated this result transmitted reference range : 4.20 - 10.70 10*3/?L. The reference range was not used to interpret this result as normal/abnormal . RBC (test code = See_Comment H [Automated 849-8) message] The sy stem which generated this [...] RDW-SD (test code = 43.3 fL 38.5-51.6 85242-5) RDW-CV (test code = 16.2 % 12.1-15.4 H 788-0) PLT (test code = See_Comment H [Automated 777-3) message] The sy stem which generated this result transmitted reference range : 150 - 328 10*3/ ?L. The reference r torito was not used to interpret this result as normal/abnormal . MPV (test code = 8.2 fL 9.8-13.0 L 21901-1) NRBC/100 WBC (test See_Comment [Automat ed code = 5687499448) message] The system which generated this result transmitted reference range : 0.0 - 10.0 /100 WBCs. The refer ence range was not u sed to interpret th is result as normal/abnormal . NRBC x10^3 (test code <0.01 See_Comment [Auto mated = 6555250704) message] The s ystem which generated this result transmitted reference range : 10*3/?L. The reference range was not used to interpret this result as normal/abnormal . GRAN MAT (NEUT) % 86.2 % (test code = 770-8) IMM GRAN % (test code 0.70 % = 8488455523) LYMPH % (test code = 10.2 % 736-9) MONO % (test code = 2.5 % 5905-5) EOS % (test code = 0.1 % 713-8) BASO % (test code = 0.3 % 706-2) GRAN MAT x10^3(ANC) 9.61 10*3/uL 1.99-6.95 H (test code = 6482068503) IMM GRAN x10^3 (test 0.08 10*3/uL 0.00-0.06 H code = 4211492367) LYMPH x10^3 (test code 1.14 10*3/uL 1.09-3.23 = 731-0) MONO x10^3 (test code 0.28 10*3/uL 0.36-1.02 L = 742-7) EOS x10^3 (test code = <0.03 0.06-0.53 L 711-2) BASO x10^3 (test code 0.03 10*3/uL 0.01-0.09 = 704-7) Lab Interpretation Abnormal (test code = 19856-4) [facility]2020-12-13 14:16:00 Test Item Value Reference Range Interpretation Comments POCT GLU (test code = 4054380187) 236 mg/dL 70-110 H Lab Interpretation (test code = Abnormal 45919-5) [facility] COVID [id number] 04:58:00COVID DMT InterpretationInterpretation/Recommendations: Molecular NAAT Tests for [...] COVID-19 testing the patient has had at [facility], including molecular NAAT testing (more commonly known as PCR testing and Rapid ID Now testing) and antibody testing. It does not take into account any testingthat a patient has had outside of the [facility] medical record. [facility] LABORATORY SERVICESCOVID YapjtnlOUYV-HhG-2 Rapid ID NOW (no units) ? ? Date ? Value ? 12/11/2020 ? Not Detected ? ? ? 11/16/2020 ? Not Detected ? ? ? 08/21/2020 ? Not Detected ? [facility]Un[facility] 2020-12-13 03:11:00 Test Item Value Reference Range Interpretation Comments POCT GLU (test code = 6891333530) 171 mg/dL 70-110 H Lab Interpretation (test code = Abnormal 53306-1) [facility] GLUCOSE (AUTOMATED)2020-12-13 00:00:00 Test Item Value Reference Range Interpretation Comments POCT GLU (test code = 7662532824) 118 mg/dL 70-110 H Lab Interpretation (test code = Abnormal 23358-0) [facility] GLUCOSE (AUTOMATED)2020-12-12 20:29:00 Test Item Value Reference Range Interpretation Comments POCT GLU (test code = 1831196669) 173 mg/dL 70-110 H Lab Interpretation (test code = Abnormal 72896-3) [facility] ABDOMEN [id number] 19:56:17 1. ?Hepatic steatosis. However, limited evaluation [...] main portal veinwasevaluated with color Doppler imaging. [place] images were obtainedfor the record. COMPARISON: Ultrasound [...] where visualized. SPLEEN:No images were obtained. [facility], Radiant Results Inft User - 12/12/2020 1:57 PM CSTEXAM: US ABDOMEN LIMITEDHISTORY: 70 years-old male with RUQ ultrasound to assess for common bileduct dilation .TECHNIQUE: Limited abdominal ultrasound focused on the liver, biliarysystem, pancreas, and spleen was performed. The main portal vein wasevaluated with color Doppler imaging. [place] images wereobtainedfor the record.COMPARISON: Ultrasound abdomen 11/17/2028. [...] study and agree with the abovereport.[facility]2020-12-12 19:24:00 Test Item Value Reference Range Interpretation Comments POCT GLU (test code = 2350158366) 230 mg/dL 70-110 H Lab Interpretation (test code = Abnormal 00658-4) [facility] Worth[facility] CHEST 1 [id number] 15:16:46 Low lung volumes with mild perihilar [...] reviewed this study and agree with theabove report.[facility]2020-12-12 14:34:00 Test Item Value Reference Range Interpretation Comments POCT GLU (test code = 4480619286) 225 mg/dL 70-110 H Lab Interpretation (test code = Abnormal 06507-7) [facility] Worth[facility]INE [id number] 13:28:00 Test Item Value Reference Range Interpretation Comments URINE CULTURE (test < 10,000 CFU/mL mixed code = 630-4) aerobic organisms - suggests endogenous microbial contamination [facility] Worth[facility] Panel (NA, K, CL, CO2, GLUCOSE, BUN, CREATININE, CA)2020-12-12 10:05:00 Test Item Value Reference Range Interpretation Comments NA (test code = 136 mmol/L 135-145 1493033962) K (test code = 3.5 mmol/L 3.5-5.0 1583572183) CL (test code = 100 mmol/L 98-108 2603720309) CO2 TOTAL (test code = 31 mmol/L 23-31 8571359985) AGAP (test code = 2-16 7487253239) BUN (test code = 7 mg/dL 7-23 4759193598) GLUCOSE (test code = 259 mg/dL 70-110 H 1431772254) CREATININE (test code = 0.63 mg/dL 0.60-1.25 2313485564) CALCIUM (test code = 8.5 mg/dL 8.6-10.6 L 1800730282) eGFR Calculation mL/min/1.73m2 (Non-) (test code = 8209313923) eGFR Calculation mL/min/1.73m2 () (test code = 1718768494) JAMES (test code = JAMES) Association of [...] tests). Lab Interpretation Abnormal (test code = 55005-8) [facility] WorthMagnesium [id number] 10:05:00 Test Item Value Reference Range Interpretation Comments MAGNESIUM (test code = 4974539148) 1.9 mg/dL 1.7-2.4 Lab Interpretation (test code = Normal 37857-5) [facility] with [id number] 09:48:00 Test Item Value Reference Range Interpretation Comments WBC (test code = See_Comment [Automated 0164-2) message] The sy stem which generated this result transmitted reference range : 4.20 - 10.70 10*3/?L. The reference range was not used to interpret this result as normal/abnormal . RBC (test code = See_Comment [Automated 907-9) message] The sy stem which generated this [...] RDW-SD (test code = 46.0 fL 38.5-51.6 70619-9) RDW-CV (test code = 16.1 % 12.1-15.4 H 788-0) PLT (test code = See_Comment H [Automated 777-3) message] The sy stem which generated this result transmitted reference range : 150 - 328 10*3/ ?L. The reference r torito was not used to interpret this result as normal/abnormal . MPV (test code = 8.6 fL 9.8-13.0 L 46133-6) NRBC/100 WBC (test See_Comment [Automat ed code = 8274819853) message] The system which generated this result transmitted reference range : 0.0 - 10.0 /100 WBCs. The refer ence range was not u sed to interpret th is result as normal/abnormal . NRBC x10^3 (test code <0.01 See_Comment [Auto mated = 9819271767) message] The s ystem which generated this result transmitted reference range : 10*3/?L. The reference range was not used to interpret this result as normal/abnormal . GRAN MAT (NEUT) % 70.2 % (test code = 770-8) IMM GRAN % (test code 0.30 % = 0710398856) LYMPH % (test code = 18.8 % 736-9) MONO % (test code = 5.0 % 5905-5) EOS % (test code = 5.2 % 713-8) BASO % (test code = 0.5 % 706-2) GRAN MAT x10^3(ANC) 6.05 10*3/uL 1.99-6.95 (test code = 5953634010) IMM GRAN x10^3 (test 0.03 10*3/uL 0.00-0.06 code = 2777317541) LYMPH x10^3 (test code 1.62 10*3/uL 1.09-3.23 = 731-0) MONO x10^3 (test code 0.43 10*3/uL 0.36-1.02 = 742-7) EOS x10^3 (test code = 0.45 10*3/uL 0.06-0.53 711-2) BASO x10^3 (test code 0.04 10*3/uL 0.01-0.09 = 704-7) Lab Interpretation Abnormal (test code = 35385-1) [facility]2020-12-12 03:42:00 Test Item Value Reference Range Interpretation Comments POCT GLU (test code = 196 mg/dL 70-110 H Notifi ed Provider [id number]) Lab Interpretation (test Abnormal code = 70120-2) [facility] WorthFOLATE2021-03-02 02:24:00 Test Item Value Reference Range Interpretation Comments FOLATE SER (test code = 6422604719) 5.8 ng/mL 3.0-20.0 Lab Interpretation (test code = Normal 72127-3) [facility] [id number] 00:55:00 Test Item Value Reference Range Interpretation Comments VIT B12 (test code = 844 pg/mL 240-930 9819458887) JAMES (test code = JAMES) Biotin has been reported to cause a positive bias, interpret results relative to patient's use of biotin. Lab Interpretation (test Normal code = 76710-9) [facility] GLUCOSE (AUTOMATED)2020-12-12 00:14:00 Test Item Value Reference Range Interpretation Comments POCT GLU (test code = 9686734046) 164 mg/dL 70-110 H Lab Interpretation (test code = Abnormal 77733-3) [facility] WorthCREATINE [id number] 23:42:00 Test Item Value Reference Range Interpretation Comments CK (test code = 1559559357) <20 33-194 L Lab Interpretation (test code = Abnormal 77354-1) [facility] WorthTHYROID STIMULATING [id number] 23:17:00 Test Item Value Reference Range Interpretation Comments TSH (test code = See_Comment Biotin has been 1959964881) reported to cau se a negative bias, interpret resul ts relative to johnny bills's use of biotin. [Automated mess age] The system [employer] generated this result transmitted ref erence range: 0.45 - 4 .70 mIU/L. The refe rence range was not u sed to interpret this result as normal/abnor mal. Lab Interpretation (test Normal code = 72202-4) [facility] WorthXR HIPS 3 VW [id number] 21:41:53No appreciable fracture lines. RL: 6200 ICAL [...] No osseous erosions.IMPRESSIONNo appreciable fracture lines.RL: 6200 [facility]PROCALCITONIN2021-03-01 20:00:00 Test Item Value Reference Range Interpretation Comments Procalcitonin (test 0.13 ng/mL <0.07 H code = 9852976863) JAMES (test code = JAMES) INTERPRETATION OF [...] lung abscess/empyema. For further information please refer to:[email or web address] Lab Interpretation Abnormal (test code = 54471-4) [facility]2020-12-11 19:07:00 Test Item Value Reference Range Interpretation Comments POCT GLU (test code = 0469463862) 274 mg/dL 70-110 H Lab Interpretation (test code = Abnormal 18508-2) [facility] WorthMAGNESIUM2021-03-01 18:31:00 Test Item Value Reference Range Interpretation Comments MAGNESIUM (test code = 7037780669) 1.9 mg/dL 1.7-2.4 Lab Interpretation (test code = Normal 56200-1) [facility] WorthFERRITIN [id number] 18:31:00 Test Item Value Reference Range Interpretation Comments FERRITIN (test code = 178.0 ng/mL 18.0-464.0 7491287320) JAMES (test code = JAMES) Biotin has been reported to cause a negative bias, interpret results relative to patient's use of biotin. Lab Interpretation (test Normal code = 37611-9) [facility] HEAD WO [id number] 14:36:47 No acute intracranial abnormality. Dilated ventricles [...] study and agree with the abovereport.[facility] WorthURINALYSIS2021-03-01 14:28:00 Test Item Value Reference Range Interpretation Comments APPEARANCE (test code = Clear Clear 6053775861) COLOR (test code = Yellow Yellow 1779592325) PH (test code = 4.8-8.0 0305140549) SP GRAVITY (test code = 1.003-1.030 0930723747) GLU U QUAL (test code = 500 mg/dL Normal A 6107871045) BLOOD (test code = Negative Negative 5191087487) KETONES (test code = 5 mg/dL Negative A 3870053808) PROTEIN (test code = Negative Negative 2887-8) UROBILIN (test code = Normal Normal 9384414451) BILIRUBIN (test code = Negative Negative 3595923295) NITRITE (test code = Negative Negative 9467410553) LEUK RYAN (test code = Negative Negative 3891299248) RBC/HPF (test code = See_Comment [Autom ated message] 2804623049) The system [employer] generated this result transmit ronan reference range : 0 - 3 HPF. The refe rence range was not u sed to interpret th is result as normal/abnormal . WBC/HPF (test code = See_Comment [Autom ated message] 2978052420) The system [employer] generated this result transmit ronan reference range : 0 - 5 HPF. The refe rence range was not u sed to interpret th is result as normal/abnormal . BACTERIA (test code = Negative Negative 5591403683) MUCOUS (test code = Slight Negative LPF A 2348731311) SQ EPITH (test code = HPF 9828813893) Lab Interpretation (test Abnormal code = 76071-9) [facility] WorthCOVID-[facility] (ID NOW RAPID TESTING)2020-12-11 13:10:00 Test Item Value Reference Range Interpretation Comments SARS-CoV-2 Rapid ID NOW Not Detected Not Detected (test code = 55345-7) JAMES (test code = JAMES) ID NOW COVID-19 Assay is an isothermal nucleic acid amplification test intended for the qualitative detection of nucleic acid from SARS-CoV-2 viral RNA in nasopharyngeal (SPOOLING OPERATOR) specimens. It is used under Emergency [...] indicated. Lab Interpretation Normal (test code = 23016-5) [facility]. METABOLIC PANEL (57215)2020-12-11 12:29:00 Test Item Value Reference Range Interpretation Comments NA (test code = 136 mmol/L 135-145 8734708411) K (test code = 3.5 mmol/L 3.5-5.0 9655008047) CL (test code = 95 mmol/L 98-108 L 4622403243) CO2 TOTAL (test code = 35 mmol/L 23-31 H 5742541996) AGAP (test code = 2-16 6366932865) BUN (test code = 9 mg/dL 7-23 0252847215) GLUCOSE (test code = 329 mg/dL 70-110 H 8659898836) CREATININE (test code = 0.72 mg/dL 0.60-1.25 4318464276) TOTAL BILI (test code = 0.6 mg/dL 0.1-1.5 6186688800) CALCIUM (test code = 9.0 mg/dL 8.6-10.6 2137306851) T PROTEIN (test code = 6.8 g/dL 6.3-8.2 7493930803) ALBUMIN (test code = 3.8 g/dL 3.5-5.0 6432026882) ALK PHOS (test code = 288 U/L 34-122 H 0412311091) ALTv (test code = 46 U/L 5-50 1742-6) AST(SGOT) (test code = 38 U/L 13-40 0368659467) eGFR Calculation mL/min/1.73m2 (Non-) (test code = 5471037437) eGFR Calculation mL/min/1.73m2 () (test code = 0985995093) JAMES (test code = JAMES) Association of [...] tests). Lab Interpretation Abnormal (test code = 86839-8) [facility] WorthLactic Acid Whole [id number] 12:23:00 Test Item Value Reference Range Interpretation Comments LACTIC ACID (test code = 2.09 mmol/L 0.50-2.20 8174286015) Lab Interpretation (test code = Normal 60417-9) [facility] WITH [id number] 12:17:00 Test Item Value Reference Range Interpretation Comments WBC (test code = See_Comment H [Automated 3490-2) message] The sy stem which generated this result transmitted reference range : 4.20 - 10.70 10*3/?L. The reference range was not used to interpret this result as normal/abnormal . RBC (test code = See_Comment [Automated 869-8) message] The sy stem which generated this [...] RDW-SD (test code = 44.9 fL 38.5-51.6 54170-7) RDW-CV (test code = 15.9 % 12.1-15.4 H 788-0) PLT (test code = See_Comment H [Automated 777-3) message] The sy stem which generated this result transmitted reference range : 150 - 328 10*3/ ?L. The reference r torito was not used to interpret this result as normal/abnormal . MPV (test code = 8.3 fL 9.8-13.0 L 19206-9) NRBC/100 WBC (test See_Comment [Automat ed code = 3539865237) message] The system which generated this result transmitted reference range : 0.0 - 10.0 /100 WBCs. The refer ence range was not u sed to interpret th is result as normal/abnormal . NRBC x10^3 (test code <0.01 See_Comment [Auto mated = 9999825933) message] The s ystem which generated this result transmitted reference range : 10*3/?L. The reference range was not used to interpret this result as normal/abnormal . GRAN MAT (NEUT) % 77.9 % (test code = 770-8) IMM GRAN % (test code 0.50 % = 8316134401) LYMPH % (test code = 12.2 % 736-9) MONO % (test code = 5.2 % 5905-5) EOS % (test code = 3.7 % 713-8) BASO % (test code = 0.5 % 706-2) GRAN MAT x10^3(ANC) 9.57 10*3/uL 1.99-6.95 H (test code = 2793588988) IMM GRAN x10^3 (test 0.06 10*3/uL 0.00-0.06 code = 7327297256) LYMPH x10^3 (test code 1.50 10*3/uL 1.09-3.23 = 731-0) MONO x10^3 (test code 0.64 10*3/uL 0.36-1.02 = 742-7) EOS x10^3 (test code = 0.46 10*3/uL 0.06-0.53 711-2) BASO x10^3 (test code 0.06 10*3/uL 0.01-0.09 = 704-7) Lab Interpretation Abnormal (test code = 64183-3) [facility] WorthLAB ONLY COVID [id number] 18:43:00COVID DMT InterpretationInterpretation/Recommendations: Molecular NAAT Test Results [...] a nasopharyngeal sample, there is approximately a plf-wd-qsqra chance that the patient was infected and [...] based upon aggregate data pooled from the [facility] medical recordincluding both current and prior COVID-19 related testing results for the following tests offered atour institution:A. Tests for the Identification of SARS-CoV-2 RNA:SARS-CoV-2 PCR assays including [place] Aptima, [place] Fusion, Barrett RealTime, and [employer] Xpert Xpress. SARS-CoV-2 Rapid ID NOW by the ID NOW assay. ? B. Tests for the Identification of SARS-CoV-2 Antibodies: Chemiluminescent immunoassays including Access SARS-CoV-2 IgM (DXI 600), VITROS Zusk-TYAB-NtA-2 IgG (Vitros 5600 and Vitros 3600), and Barrett SARS-CoV-2 IgG (HUMAN RESOURCES MANAGER I System). These interpretation comments assume that only the above testing was utilized and that the approved acceptable specimen type(s) were used for a given test. These interpretations are autopopulated into [employer] based on computerized algorithms matching an interpretation code number to the patient's set of test results. While a clinical pathologist evaluates the combinations for clinical accuracy, clinical correlation is recommended as it may not take into account very remote prior testing. Furthermore, it does not consider testing a patient may have had outside of the [facility] system. Additionally, it should be noted that the computerized algorithm treats the results for PCR testing and Rapid ID NOW testing (also PCR) synonymously, and thus, refers to both testing methodologies as PCR tests. Given that the sensitivity of [facility]'s Rapid ID NOW testing platform is [...] pathogen panel may be beneficialin this setting. [facility] LABORATORY SERVICESCOVID QrbfapdMLJV-QpJ-4 Rapid ID NOW (no units) ? ? Date ? Value ? 08/21/2020 ? Not Detected ? [facility] SERVICESUnH[facility]2020-08-23 18:25:00 Test Item Value Reference Range Interpretation Comments POCT GLU (test code = 7540704307) 297 mg/dL 70-110 H Lab Interpretation (test code = Abnormal 83927-0) [facility] GLUCOSE (AUTOMATED)2020-08-23 14:25:00 Test Item Value Reference Range Interpretation Comments POCT GLU (test code = 6523565841) 181 mg/dL 70-110 H Lab Interpretation (test code = Abnormal 80587-3) [facility] Metabolic Panel (NA, K, CL, CO2, GLUCOSE, BUN, CREATININE, CA)2020-08-23 11:45:00 Test Item Value Reference Range Interpretation Comments NA (test code = 132 mmol/L 135-145 L 9926369668) K (test code = 4.0 mmol/L 3.5-5 2091715690) CL (test code = 96 mmol/L 98-108 L 9543502866) CO2 TOTAL (test code = 33 mmol/L 23-31 H 5428969555) AGAP (test code = 2-16 6329988011) BUN (test code = 9 mg/dL 7-23 6483489387) GLUCOSE (test code = 176 mg/dL 70-110 H 8678826340) CREATININE (test code = 0.66 mg/dL 0.6-1.25 3465106575) CALCIUM (test code = 8.5 mg/dL 8.6-10.6 L 3323643616) eGFR Calculation mL/min/1.73m2 (Non-) (test code = 9436167068) eGFR Calculation mL/min/1.73m2 () (test code = 5679463388) JAMES (test code = JAMES) Association of [...] tests). Lab Interpretation Abnormal (test code = 44090-8) [facility] WorthMagnesium [id number] 11:45:00 Test Item Value Reference Range Interpretation Comments MAGNESIUM (test code = 5075624296) 2.0 mg/dL 1.7-2.4 Lab Interpretation (test code = Normal 74555-1) [facility] with Nknyhxyiurkg6752-74-13 11:38:00 Test Item Value Reference Range Interpretation [...] RDW-SD (test code = 41.8 fL 38.5-51.6 55784-2) RDW-CV (test code = 14.3 % 12.1-15.4 788-0) PLT (test code = See_Comment H [Automated 777-3) message] The sy stem which generated this result transmitted reference range : 150 - 328 10*3/ ?L. The reference r torito was not used to interpret this result as normal/abnormal . MPV (test code = 8.0 fL 9.8-13 L 03096-1) NRBC/100 WBC (test See_Comment [Automat ed code = 4129069679) message] The system which generated this result transmitted reference range : 0.0 - 10.0 /100 WBCs. The refer ence range was not u sed to interpret th is result as normal/abnormal . NRBC x10^3 (test code <0.01 See_Comment [Auto mated = 5972494873) message] The s ystem which generated this result transmitted reference range : 10*3/?L. The reference range was not used to interpret this result as normal/abnormal . GRAN MAT (NEUT) % 61.5 % (test code = 770-8) IMM GRAN % (test code 2.00 % = 3645884372) LYMPH % (test code = 25.5 % 736-9) MONO % (test code = 6.3 % 5905-5) EOS % (test code = 3.7 % 713-8) BASO % (test code = 1.0 % 706-2) GRAN MAT x10^3(ANC) 5.29 10*3/uL 1.99-6.95 (test code = 6996571197) IMM GRAN x10^3 (test 0.17 10*3/uL 0-0.06 H code = 1092606661) LYMPH x10^3 (test code 2.19 10*3/uL 1.09-3.23 = 731-0) MONO x10^3 (test code 0.54 10*3/uL 0.36-1.02 = 742-7) EOS x10^3 (test code = 0.32 10*3/uL 0.06-0.53 711-2) BASO x10^3 (test code 0.09 10*3/uL 0.01-0.09 = 704-7) Lab Interpretation Abnormal (test code = 12679-6) [facility] GLUCOSE (AUTOMATED)2020-08-23 10:22:00 Test Item Value Reference Range Interpretation Comments POCT GLU (test code = 3835968366) 164 mg/dL 70-110 H Lab Interpretation (test code = Abnormal 02752-8) [facility] GLUCOSE (AUTOMATED)2020-08-23 05:56:00 Test Item Value Reference Range Interpretation Comments POCT GLU (test code = 2429507405) 242 mg/dL 70-110 H Lab Interpretation (test code = Abnormal 13680-8) [facility] GLUCOSE (AUTOMATED)2020-08-23 03:02:00 Test Item Value Reference Range Interpretation Comments POCT GLU (test code = 0867279283) 210 mg/dL 70-110 H Lab Interpretation (test code = Abnormal 94151-0) [facility] GLUCOSE (AUTOMATED)2020-08-22 23:40:00 Test Item Value Reference Range Interpretation Comments POCT GLU (test code = 3076033108) 267 mg/dL 70-110 H Lab Interpretation (test code = Abnormal 14861-8) [facility] GLUCOSE (AUTOMATED)2020-08-22 19:08:00 Test Item Value Reference Range Interpretation Comments POCT GLU (test code = 7989204071) 191 mg/dL 70-110 H Lab Interpretation (test code = Abnormal 60437-8) [facility] GLUCOSE (AUTOMATED)2020-08-22 13:50:00 Test Item Value Reference Range Interpretation Comments POCT GLU (test code = 3751497899) 174 mg/dL 70-110 H Lab Interpretation (test code = Abnormal 94002-1) [facility] WorthURINE [id number] 12:59:00 Test Item Value Reference Range Interpretation Comments URINE CULTURE (test No aerobic growth (< code = 630-4) 1000 CFU/mL) [facility] WorthCBC with [id number] 11:28:00 Test Item Value Reference Range Interpretation Comments WBC (test code = See_Comment [Automated 6690-2) message] The sy stem which generated this result transmitted reference range : 4.20 - 10.70 10*3/?L. The reference range was not used to interpret this result as normal/abnormal . RBC (test code = See_Comment L [Automated 849-8) message] The sy stem which generated this [...] RDW-SD (test code = 42.5 fL 38.5-51.6 86143-3) RDW-CV (test code = 14.5 % 12.1-15.4 788-0) PLT (test code = See_Comment H [Automated 777-3) message] The sy stem which generated this result transmitted reference range : 150 - 328 10*3/ ?L. The reference r torito was not used to interpret this result as normal/abnormal . MPV (test code = 8.0 fL 9.8-13 L 96432-1) NRBC/100 WBC (test See_Comment [Automat ed code = 9972983230) message] The system which generated this result transmitted reference range : 0.0 - 10.0 /100 WBCs. The refer ence range was not u sed to interpret th is result as normal/abnormal . NRBC x10^3 (test code <0.01 See_Comment [Auto mated = 5187548296) message] The s ystem which generated this result transmitted reference range : 10*3/?L. The reference range was not used to interpret this result as normal/abnormal . GRAN MAT (NEUT) % 69.1 % (test code = 770-8) IMM GRAN % (test code 2.20 % = 8731852338) LYMPH % (test code = 20.9 % 736-9) MONO % (test code = 5.8 % 5905-5) EOS % (test code = 1.0 % 713-8) BASO % (test code = 1.0 % 706-2) GRAN MAT x10^3(ANC) 6.51 10*3/uL 1.99-6.95 (test code = 6663945445) IMM GRAN x10^3 (test 0.21 10*3/uL 0-0.06 H code = 1241065021) LYMPH x10^3 (test code 1.97 10*3/uL 1.09-3.23 = 731-0) MONO x10^3 (test code 0.55 10*3/uL 0.36-1.02 = 742-7) EOS x10^3 (test code = 0.09 10*3/uL 0.06-0.53 711-2) BASO x10^3 (test code 0.09 10*3/uL 0.01-0.09 = 704-7) BASO STIPPLING (test Present A code = 703-9) BANDS (test code = Increased A 2112386683) TOXIC CHANGES (test Present A code = 803-7) Lab Interpretation Abnormal (test code = 99471-6) [facility] Metabolic Panel (NA, K, CL, CO2, GLUCOSE, BUN, CREATININE, CA)2020-08-22 11:12:00 Test Item Value Reference Range Interpretation Comments NA (test code = 135 mmol/L 135-145 5274273654) K (test code = 3.6 mmol/L 3.5-5 0750238307) CL (test code = 99 mmol/L 98-108 7396441051) CO2 TOTAL (test code = 31 mmol/L 23-31 6349835793) AGAP (test code = 2-16 9333903577) BUN (test code = 9 mg/dL 7-23 6158379840) GLUCOSE (test code = 198 mg/dL 70-110 H 2226850763) CREATININE (test code = 0.72 mg/dL 0.6-1.25 3427415102) CALCIUM (test code = 8.3 mg/dL 8.6-10.6 L 7588741041) eGFR Calculation mL/min/1.73m2 (Non-) (test code = 2138335891) eGFR Calculation mL/min/1.73m2 () (test code = 6635591674) JAMES (test code = JAMES) Association of [...] tests). Lab Interpretation Abnormal (test code = 89970-4) [facility] WorthMagn[facility] [id number] 11:12:00 Test Item Value Reference Range Interpretation Comments MAGNESIUM (test code = 5388792278) 2.0 mg/dL 1.7-2.4 Lab Interpretation (test code = Normal 40117-3) [facility] WorthLipid Panel (Total Cholesterol, Triglycerides, HDL) - Iyittpz6090-51-34 11:12:00 Test Item Value Reference Range Interpretation Comments CHOL (test code = 155 mg/dL 120-200 9422368601) HDL (test code = 42 mg/dL >40 4664902668) HDLC RATIO (test code = See_Comment [Au tomated message] 1896176417) The system [employer] generated this result transmit ronan reference range : <=5.0. The refe rence range was not u sed to interpret th is result as normal/abnormal . TRIG (test code = 186 mg/dL 30-170 H 3244739139) LDL CHOL (test code = 76 mg/dL See_Comment [Auto mated message] 32620-4) The system [employer] generated this result transmit ronan reference range : <=160. The refe rence range was not u sed to interpret th is result as normal/abnormal . VLDL (test code = 37 mg/dL 5-60 0734884272) Lab Interpretation (test Abnormal code = 37284-2) [facility] WorthHEPATIC FUNCTION PANEL (19338) (ALB,T.PRO,BILI T,BU/BC,ALT,AST,ALK PHOS)2020-08-22 11:12:00 Test Item Value Reference Range Interpretation Comments TOTAL BILI (test code = 1132350220) 0.6 mg/dL 0.1-1.1 BILI UNCON (test code = 1752711737) 0.2 mg/dL 0.1-1.1 BILI CONJ (test code = 2826949692) 0.0 mg/dL 0-0.3 T PROTEIN (test code = 7619965053) 6.0 g/dL 6.3-8.2 L ALBUMIN (test code = 9211904640) 2.8 g/dL 3.5-5 L ALK PHOS (test code = 9555277781) 222 U/L 34-122 H ALTv (test code = 1742-6) 27 U/L 5-50 AST(SGOT) (test code = 1494991252) 30 U/L 13-40 Lab Interpretation (test code = Abnormal 72404-4) [facility] GLUCOSE (AUTOMATED)2020-08-22 10:11:00 Test Item Value Reference Range Interpretation Comments POCT GLU (test code = 4174781534) 196 mg/dL 70-110 H Lab Interpretation (test code = Abnormal 78508-6) [facility] GLUCOSE (AUTOMATED)2020-08-22 07:15:00 Test Item Value Reference Range Interpretation Comments POCT GLU (test code = 2187413024) 183 mg/dL 70-110 H Lab Interpretation (test code = Abnormal 76678-7) [facility] GLUCOSE (AUTOMATED)2020-08-22 02:30:00 Test Item Value Reference Range Interpretation Comments POCT GLU (test code = 4293263380) 295 mg/dL 70-110 H Lab Interpretation (test code = Abnormal 98946-3) [facility] GLUCOSE (AUTOMATED)2020-08-21 23:46:00 Test Item Value Reference Range Interpretation Comments POCT GLU (test code = 7719292197) 258 mg/dL 70-110 H Lab Interpretation (test code = Abnormal 14637-2) [facility] WorthC-REACTIVE [id number] 18:50:00 Test Item Value Reference Range Interpretation Comments CRP (test code = 2937716010) 15.5 mg/dL <0.8 H Lab Interpretation (test code = Abnormal 03305-6) [facility] Worth[facility]2020-08-21 18:21:00 Test Item Value Reference Range Interpretation Comments POCT GLU (test code = 5801794928) 297 mg/dL 70-110 H Lab Interpretation (test code = Abnormal 99031-1) [facility] WorthETHANOL2020-11-09 16:24:00 Test Item Value Reference Range Interpretation Comments ALCOHOL (test code = <10 mg/dL 5793658062) JAMES (test code = Toxic Greater than or JAMES) equal to 80 mg/dL. NOTE: Whole blood values are approximately 10% to 15% lower than serum and plasma. [facility] WorthGAL/CLC ONLY - URINE DRUG (IMMUNOASSAY) - 4 ER [id number] 15:36:00 Test Item Value Reference Range Interpretation Comments AMPHET (test code = Negative Negative 9823543555) Cocaine Metabolite (test Negative Negative code = 1668200335) OPIATES (test code = Presumptive Positive Negative A 1404168810) THC (test code = Negative Negative 7803811043) JAMES (test code = JAMES) Urine Drug Cutoff Ranges Amphetamine: ? 1,000 ng/mLCocaine: ? 150 ng/mLOpiates: ? 300 ng/mLCannabinoids: ?50 ng/mL The results are to be used only for medical (i.e., treatment) purposes. Unconfirmed screening results must not be used for non-medical purposes (e.g., employment testing, legal testing). Lab Interpretation (test Abnormal code = 43020-0) [facility] ONLY - SYPHILIS [id number] 15:04:00 Test Item Value Reference Range Interpretation Comments Syphilis IgG/IgM (test Non-reactive Non-reactive code = 66662-6) JAMES (test code = JAMES) Non-reactive - No serologic evidence of T. pallidum infection. Cannot exclude incubating or early syphilis. Submit a second specimen in 2-4 weeks if syphilis is clinically suspected. Equivocal - Further testing to follow. Reactive - Further testing to follow. Lab Interpretation (test Normal code = 08998-3) [facility] WorthUrinalysis2020-11-09 14:52:00 Test Item Value Reference Range Interpretation Comments APPEARANCE (test code = Clear Clear 0727897371) COLOR (test code = Yellow Yellow 9465529722) PH (test code = 4.8-8.0 2924217697) SP GRAVITY (test code = 1.003-1.030 2716602929) GLU U QUAL (test code = 500 mg/dL Normal A 9177881631) BLOOD (test code = Negative Negative 0553235880) KETONES (test code = 20 mg/dL Negative A 0836173345) PROTEIN (test code = Negative Negative 2887-8) UROBILIN (test code = Normal Normal 1234642757) BILIRUBIN (test code = Negative Negative 9385284300) NITRITE (test code = Negative Negative 8238132688) LEUK RYAN (test code = Negative Negative 7854918374) RBC/HPF (test code = <1 See_Comment [Autom ated message] 0315038991) The system [employer] generated this result transmit ronan reference range : 0 - 3 HPF. The refe rence range was not u sed to interpret th is result as normal/abnormal . WBC/HPF (test code = See_Comment [Autom ated message] 6796952033) The system [employer] generated this result transmit ronan reference range : 0 - 5 HPF. The refe rence range was not u sed to interpret th is result as normal/abnormal . BACTERIA (test code = Negative Negative 0030296188) MUCOUS (test code = Slight Negative LPF A 0470932025) Lab Interpretation (test Abnormal code = 67993-9) [facility] THRMPLAS [id number] 13:45:00 Test Item Value Reference Range Interpretation Comments APTT Patient (test code = See_Comment [ Automated message] 3173-2) The system Bunkspeed generated this result transmitted ref erence range: 26 - 36 Seconds. The re ference range was not u sed to interpret this result as normal/abnor mal. Lab Interpretation (test Normal code = 36122-6) [facility]2020-08-21 13:45:00 Test Item Value Reference Range Interpretation Comments POCT GLU (test code = 9345847316) 246 mg/dL 70-110 H Lab Interpretation (test code = Abnormal 96760-5) [facility]/2 AG-AB WITH [id number] 12:32:00 Test Item Value Reference Range Interpretation Comments HIV Negative Negative Semi-quantitative (test code = 40167-4) JAMES (test code = Non-reactive for HIV-1 JAMES) antigen and HIV-1/HIV-2 antibodies. ?No laboratory evidence of HIV infection. ?Repeat in 2-4 weeks if acute HIV infection is suspected. [facility] Worth[facility] WITH [id number] 12:18:00 Test Item Value Reference Range Interpretation [...] RDW-SD (test code = 44.4 fL 38.5-51.6 19375-1) RDW-CV (test code = 14.5 % 12.1-15.4 788-0) PLT (test code = See_Comment H [Automated 777-3) message] The sy stem which generated this result transmitted reference range : 150 - 328 10*3/ ?L. The reference r torito was not used to interpret this result as normal/abnormal . MPV (test code = 8.5 fL 9.8-13 L 90370-8) NRBC/100 WBC (test See_Comment [Automat ed code = 3594661390) message] The system which generated this result transmitted reference range : 0.0 - 10.0 /100 WBCs. The refer ence range was not u sed to interpret th is result as normal/abnormal . NRBC x10^3 (test code <0.01 See_Comment [Auto mated = 3035145142) message] The s ystem which generated this result transmitted reference range : 10*3/?L. The reference range was not used to interpret this result as normal/abnormal . GRAN MAT (NEUT) % 90.4 % (test code = 770-8) IMM GRAN % (test code 1.30 % = 0884078973) LYMPH % (test code = 7.1 % 736-9) MONO % (test code = 0.5 % 5905-5) EOS % (test code = 0.1 % 713-8) BASO % (test code = 0.6 % 706-2) GRAN MAT x10^3(ANC) 7.74 10*3/uL 1.99-6.95 H (test code = 1024736780) IMM GRAN x10^3 (test 0.11 10*3/uL 0-0.06 H code = 8207513620) LYMPH x10^3 (test code 0.61 10*3/uL 1.09-3.23 L = 731-0) MONO x10^3 (test code 0.04 10*3/uL 0.36-1.02 L = 742-7) EOS x10^3 (test code = <0.03 0.06-0.53 L 711-2) BASO x10^3 (test code 0.05 10*3/uL 0.01-0.09 = 704-7) POLYCHROMASIA (test 2+ See_Comment [Automa ronan code = 25939-7) message] The system which generated this result transmitted reference range : 2+. The referen ce range was not u sed to interpret th is result as normal/abnormal . BANDS (test code = Increased A 0204837919) Lab Interpretation Abnormal (test code = 25692-6) [facility] Worth[facility]ALCITONIN2020-11-09 11:48:00 Test Item Value Reference Range Interpretation Comments Procalcitonin (test 0.36 ng/mL <0.07 H code = 1338796081) JAMES (test code = JAMES) INTERPRETATION OF [...] lung abscess/empyema. For further information please refer to:[email or web address] Lab Interpretation Abnormal (test code = 64951-6) [facility] WorthLAOHATE [id number] 10:53:00 Test Item Value Reference Range Interpretation Comments LDH (test code = 5946870168) 351 U/L 300-600 Lab Interpretation (test code = Normal 84710-4) [facility] WorthSEDIMENTATION [id number] 10:07:00 Test Item Value Reference Range Interpretation Comments ESR (test code = See_Comment H [Automated message] 3953094159) The system [employer]unkspeed generated this result transmitted ref erence range: 0 - 10 m m/HR. The reference r torito was not used to interpret this result as normal/abnor mal. Lab Interpretation (test Abnormal code = 23362-1) [facility]2020-08-21 09:45:00 Test Item Value Reference Range Interpretation Comments POCT GLU (test code = 6900818181) 287 mg/dL 70-110 H Lab Interpretation (test code = Abnormal 85875-5) [facility] WorthGlycosylated Hemoglobin (A1C)2020-08-21 09:29:00 Test Item Value Reference Range Interpretation Comments HGB A1C (test code = 4548-4) 9.8 % 4-6 H Lab Interpretation (test code = Abnormal 37317-3) [facility]OVID[facility] (ID NOW RAPID TESTING)2020-08-21 09:13:00 Test Item Value Reference Range Interpretation Comments SARS-CoV-2 Rapid ID NOW Not Detected Not Detected (test code = 78823-7) JAMES (test code = JAMES) ID NOW COVID-19 Assay is an isothermal nucleic acid amplification test intended for the qualitative detection of nucleic acid from SARS-CoV-2 viral RNA in nasopharyngeal (SPOOLING OPERATOR) specimens. It is used under Emergency [...] indicated. Lab Interpretation Normal (test code = 38682-0) [facility] WorthProthrombin Time / [id number] 08:59:00 Test Item Value Reference Range Interpretation Comments PROTIME PATIENT (test See_Comment H [Auto mated message] code = 5964-2) The system Dtime generated this result transmitted ref erence range: 10.1 - 1 2.6 Seconds. The reference range was not used to int erpret this result as normal/abnormal . INR (test code = 6301-6) Nor mal INR <1.1; Warfarin Therap eutic range 2.0 to 3. 0 or 2.5 to 3.5, dep ending upon the indica tions. Lab Interpretation (test Abnormal code = 84385-9) [facility] WorthaPTT2020-11-09 08:59:00 Test Item Value Reference Range Interpretation Comments APTT Patient (test code = See_Comment [ Automated message] 3173-2) The system [employer] generated this result transmitted ref erence range: 26 - 36 Seconds. The re ference range was not u sed to interpret this result as normal/abnor mal. Lab Interpretation (test Normal code = 16203-4) [facility] WorthBASI METABOLIC PANEL (NA, K, CL, CO2, GLUCOSE, BUN, CREATININE, CA)2020-08-21 08:52:00 Test Item Value Reference Range Interpretation Comments NA (test code = 136 mmol/L 135-145 9086356920) K (test code = 4.3 mmol/L 3.5-5 5230167541) CL (test code = 104 mmol/L 98-108 6669761060) CO2 TOTAL (test code = 24 mmol/L 23-31 8984994118) AGAP (test code = 2-16 7847090137) BUN (test code = 8 mg/dL 7-23 1564160724) GLUCOSE (test code = 308 mg/dL 70-110 H 0472287512) CREATININE (test code = 0.72 mg/dL 0.6-1.25 4692802200) CALCIUM (test code = 7.8 mg/dL 8.6-10.6 L 7349021813) eGFR Calculation mL/min/1.73m2 (Non-) (test code = 7039169227) eGFR Calculation mL/min/1.73m2 () (test code = 0672849577) JAMES (test code = JAMES) Association of [...] tests). Lab Interpretation Abnormal (test code = 84057-7) [facility] WorthHEPATIC FUNCTION PANEL (33918) (ALB,T.PRO,BILI T,BU/BC,ALT,AST,ALK PHOS)2020-08-21 08:52:00 Test Item Value Reference Range Interpretation Comments TOTAL BILI (test code = 6095666513) 0.8 mg/dL 0.1-1.1 BILI UNCON (test code = 9633740259) 0.3 mg/dL 0.1-1.1 BILI CONJ (test code = 0126228418) 0.0 mg/dL 0-0.3 T PROTEIN (test code = 8984161985) 5.7 g/dL 6.3-8.2 L ALBUMIN (test code = 7848704910) 2.7 g/dL 3.5-5 L ALK PHOS (test code = 2317901389) 245 U/L 34-122 H ALTv (test code = 1742-6) 37 U/L 5-50 AST(SGOT) (test code = 1736978465) 43 U/L 13-40 H Lab Interpretation (test code = Abnormal 15328-3) [facility]
--- NOTE | 2022-09-12 09:31 | ER ---
Nurse's Notes [facility] Name: Kiel Ngo Age: 71 yrs Sex: Male : 1950 Arrival Date: 09/12/2022 Time: 08:42 Bed 15 Private MD: Diagnosis: Pain in right hip;Chronic pain, not elsewhere classified Presentation: 09/12 08:43 Chief complaint: Patient states: R hip and leg pain. Dr. Alonso wouldn't refill his ll1 pain meds. Coronavirus screen: Vaccine status: Patient reports being unvaccinated. Client denies travel out of the [place] in the last 14 days. At this time, the client does not indicate any symptoms associated with coronavirus-19. Ebola Screen: Patient denies travel to an Ebola-affected area in the 21 days before illness onset. Initial Sepsis Screen: Does the patient meet any 2 criteria? No. Patient's initial sepsis screen is negative. Does the patient have a suspected source of infection? Yes: Bone or joint infection. Risk Assessment: Do you want to hurt yourself or someone else? Patient reports no desire to harm self or others. Onset of symptoms is unknown. 08:43 Method Of Arrival: EMS ll1 08:43 Acuity: JOZEF 4 ll1 Triage Assessment: 08:44 General: Appears uncomfortable, Behavior is cooperative, appropriate for age. Pain: ll1 Complains of pain in right hip and leg Pain currently is 10 out of 10 on a pain scale. Quality of pain is described as aching. Neuro: No deficits noted. Cardiovascular: No deficits noted. Musculoskeletal: Reports pain in right hip and leg. Historical: - Allergies: 08:44 Demerol; ll1 08:44 metformin; ll1 08:44 Morphine; ll1 - PMHx: 08:44 Atrial fibrillation; chronic back pain; Chronic right leg pain; neuropathy; ll1 - PSHx: 08:44 back sx; PANCREAS SX; R. Ankle SX; ll1 - Immunization history:: Client reports having NOT received the Covid vaccine. - Social history:: Smoking status: Patient denies any tobacco usage or history of. - Family history:: not pertinent. Screenin:45 Abuse screen: Denies threats or abuse. Nutritional screening: No deficits noted. ll1 Tuberculosis screening: No symptoms or risk factors identified. 08:46 Fall Risk Ambulatory Aid- Crutches/Cane/Walker (15 pts). Gait- Impaired (20 pts.). ll1 Total Chow Fall Scale indicates Low Risk Score (25-44 pts). Fall prevention measures have been instituted. Side Rails Up X 2 Placed close to Nursing Station Frequent Obs/Assesments occuring As available Patient and Family Educated on Fall Prevention Program and strategies. Assessment: 09:12 Reassessment: No changes from previously documented assessment. Patient and/or family ll1 updated on plan of care and expected duration. Pain level reassessed. Patient is alert, oriented x 3, equal unlabored respirations, skin warm/dry/pink. 09:27 Reassessment: No changes from previously documented assessment. given warm blanket. ll1 10:00 Reassessment: No changes from previously documented assessment. Patient and/or family ll1 updated on plan of care and expected duration. Pain level reassessed. Patient is alert, oriented x 3, equal unlabored respirations, skin warm/dry/pink. 10:57 Reassessment: No changes from previously documented assessment. Patient and/or family ll1 updated on plan of care and expected duration. Pain level reassessed. Patient is alert, oriented x 3, equal unlabored respirations, skin warm/dry/pink. Vital Signs: 08:43 BP 128 / 75; Pulse 104; Resp 18; Temp 98.6; Pulse Ox 97% on R/A; Weight 84.37 kg; ll1 Height 5 ft. 11 in. (180.34 cm); Pain 10/10; 10:57 BP 128 / 68; Pulse 107; Resp 17; Pulse Ox 97% on R/A; ll1 08:43 Body Mass Index 25.94 (84.37 kg, 180.34 cm) ll1 ED Course: 08:42 Patient arrived in ED. iw 08:43 Tristian Mccormack, DIEGO is Primary Nurse. ll1 08:44 Triage completed. ll1 08:44 Arm band placed on Patient placed in an exam room, on a stretcher. ll1 08:46 Stu Banerjee MD is Attending Physician. chetan 09:29 Madhu Francois DO is Referral Physician. chtean 10:58 Patient has correct armband on for positive identification. Bed in low position. Call ll1 light in reach. Cardiac monitoring not applicable on this patient. 10:58 No provider procedures requiring assistance completed. Patient did not have IV access ll1 during this emergency room visit. Administered Medications: 09:55 Drug: Valium (diazepam) 10 mg {Note: pain 10 rass0.} Route: PO; ll1 10:57 Follow up: Response: No adverse reaction; Pain is decreased; RASS: Alert and Calm (0) ll1 09:55 Drug: Ketorolac 30 mg {Note: pain 10.} Route: IM; Site: left vastus lateralis; ll1 10:56 Follow up: Response: No adverse reaction; Pain is decreased; RASS: Alert and Calm (0) ll1 Medication: 10:58 VIS not applicable for this client. ll1 Outcome: 09:30 Discharge ordered by MD. benton 10:58 Discharged to home via ambulance. ll1 10:58 Condition: stable 10:58 Discharge instructions given to patient, Instructed on discharge instructions, follow up and referral plans. Demonstrated understanding of instructions, follow-up care. 10:58 Patient left the ED. ll1 Signatures: Stu Banerjee MD MD cha Williams, Irene, Tristian Gupta RN, RN RN ll1 Corrections: (The following items were deleted from the chart) 08:46 08:43 Resp 18bpm; 84.37 kg; Height 5 ft. 11 in.; BMI: 25.9; Pain 10; ll1 ll1 08:46 08:43 BP 128 / 75; Pulse 111bpm; Resp 18bpm; Pulse Ox 97% RA; Temp 98.6F; 84.37 kg; ll1 Height 5 ft. 11 in.; BMI: 25.9; Pain 10; ll1
--- NOTE | 2022-09-12 09:32 | EDPHYS ---
Physician Documentation [facility] Name: Kiel Ngo Age: 71 yrs Sex: Male : 1950 Arrival Date: 09/12/2022 Time: 08:42 Bed 15 Private MD: ED Physician Stu Banerjee HPI: 09/12 09:21 This 71 yrs old Male presents to ER via EMS with complaints of Hip Pain. chetan 09:21 The patient or guardian reports decreased range of motion, pain. that occurred at an [facility] unknown site, sustained from non use There is no obvious deformity. The complaints affect the right upper thigh. Onset: The symptoms/episode began/occurred 2 day(s) ago. Modifying factors: The symptoms are alleviated by nothing, the symptoms are aggravated by any movement. Associated signs and symptoms: Pertinent positives: None. Pertinent negatives: None. Severity of symptoms: At their worst the symptoms were mild, in the emergency department the symptoms are unchanged. The patient has experienced similar episodes in the past, multiple times. Historical: - Allergies: 08:44 Demerol; ll1 08:44 metformin; ll1 08:44 Morphine; ll1 - PMHx: 08:44 Atrial fibrillation; chronic back pain; Chronic right leg pain; neuropathy; ll1 - PSHx: 08:44 back sx; PANCREAS SX; R. Ankle SX; ll1 - Immunization history:: Client reports having NOT received the Covid vaccine. - Social history:: Smoking status: Patient denies any tobacco usage or history of. - Family history:: not pertinent. ROS: 09:21 Constitutional: Negative for fever, chills, and weight loss, Eyes: Negative for injury, chetan pain, redness, and discharge, ENT: Negative for injury, pain, and discharge, Neck: Negative for injury, pain, and swelling, Cardiovascular: Negative for chest pain, palpitations, and edema, Respiratory: Negative for shortness of breath, cough, wheezing, and pleuritic chest pain, Abdomen/GI: Negative for abdominal pain, nausea, vomiting, diarrhea, and constipation, Back: Negative for injury and pain, : Negative for injury, bleeding, discharge, and swelling, Skin: Negative for injury, rash, and discoloration, Neuro: Negative for headache, weakness, numbness, tingling, and seizure, Psych: Negative for depression, anxiety, suicide ideation, homicidal ideation, and hallucinations, Allergy/Immunology: Negative for hives, rash, and allergies, Endocrine: Negative for neck swelling, polydipsia, polyuria, polyphagia, and marked weight changes, Hematologic/Lymphatic: Negative for swollen nodes, abnormal bleeding, and unusual bruising. 09:21 MS/extremity: Positive for decreased range of motion, pain, of the right upper thigh. Exam: 09:21 Constitutional: This is a well developed, well nourished patient who is awake, alert, chetan and in no acute distress. Head/Face: Normocephalic, atraumatic. Eyes: Pupils equal round and reactive to light, extra-ocular motions intact. Lids and lashes normal. Conjunctiva and sclera are non-icteric and not injected. Cornea within normal limits. Periorbital areas with no swelling, redness, or edema. ENT: Nares patent. No nasal discharge, no septal abnormalities noted. Tympanic membranes are normal and external auditory canals are clear. Oropharynx with no redness, swelling, or masses, exudates, or evidence of obstruction, uvula midline. Mucous membranes moist. Neck: Trachea midline, no thyromegaly or masses palpated, and no cervical lymphadenopathy. Supple, full range of motion without nuchal rigidity, or vertebral point tenderness. No Meningismus. Chest/axilla: Normal chest wall appearance and motion. Nontender with no deformity. No lesions are appreciated. Cardiovascular: Regular rate and rhythm with a normal S1 and S2. No gallops, murmurs, or rubs. Normal PMI, no JVD. No pulse deficits. Respiratory: Lungs have equal breath sounds bilaterally, clear to auscultation and percussion. No rales, rhonchi or wheezes noted. No increased work of breathing, no retractions or nasal flaring. Abdomen/GI: Soft, non-tender, with normal bowel sounds. No distension or tympany. No guarding or rebound. No evidence of tenderness throughout. Back: No spinal tenderness. No costovertebral tenderness. Full range of motion. Male : Normal genitalia with no discharge or lesions. Skin: Warm, dry with normal turgor. Normal color with no rashes, no lesions, and no evidence of cellulitis. Neuro: Awake and alert, GCS 15, oriented to person, place, time, and situation. Cranial nerves II-XII grossly intact. Motor strength 5/5 in all extremities. Sensory grossly intact. Cerebellar exam normal. Normal gait. Psych: Awake, alert, with orientation to person, place and time. Behavior, mood, and affect are within normal limits. 09:21 Musculoskeletal/extremity: Extremities: grossly normal except: noted in the right upper thigh: decreased ROM, pain, ROM: limited active range of motion due to pain, limited passive range of motion due to pain, Circulation is intact in all extremities. Sensation intact. Compartment Syndrome exam of affected extremity: is normal. Weight bearing: is unable to bear weight, DVT Exam: No signs of deep vein thrombosis. no swelling, no tenderness, negative Homans' sign noted on exam, no appreciated bluish discoloration, no erythema, no increased warmth, pain. Vital Signs: 08:43 BP 128 / 75; Pulse 104; Resp 18; Temp 98.6; Pulse Ox 97% on R/A; Weight 84.37 kg; ll1 Height 5 ft. 11 in. (180.34 cm); Pain 10/10; 10:57 BP 128 / 68; Pulse 107; Resp 17; Pulse Ox 97% on R/A; ll1 08:43 Body Mass Index 25.94 (84.37 kg, 180.34 cm) ll1 MDM: 08:46 Patient medically screened. chetan 09:28 Differential diagnosis: bursitis, arthritis, strain. Data reviewed: vital signs, nurses chetan notes, lab test result(s), EKG, radiologic studies, plain films. Data interpreted: nuclear weapons specialist: not applicable for this patient encounter. rate is 96 beats/min, rhythm is regular, Pulse oximetry: on room air is 97 %. Test interpretation: by ED physician or midlevel provider:. Counseling: I had a detailed discussion with the patient and/or guardian regarding: the historical points, exam findings, and any diagnostic results supporting the discharge/admit diagnosis, the need for outpatient follow up, for definitive care, a family practitioner, a roller painter. Administered Medications: 09:55 Drug: Valium (diazepam) 10 mg {Note: pain 10/10 rass0.} Route: PO; ll1 10:57 Follow up: Response: No adverse reaction; Pain is decreased; RASS: Alert and Calm (0) ll1 09:55 Drug: Ketorolac 30 mg {Note: pain 07/22.} Route: IM; Site: left vastus lateralis; ll1 10:56 Follow up: Response: No adverse reaction; Pain is decreased; RASS: Alert and Calm (0) ll1 Disposition Summary: 09/12/22 09:30 Discharge Ordered Location: Home chetan Problem: new chetan Symptoms: have improved chetan Condition: Stable chetan Diagnosis - Pain in right hip chetan - Chronic pain, not elsewhere classified chetan Followup: chetan - With: Private Physician - When: 2 - 3 days - Reason: Recheck today's complaints, Continuance of care, Re-evaluation by your physician Followup: chetan - With: Madhu Francois DO - When: 2 - 3 days - Reason: Recheck today's complaints, Continuance of care, Re-evaluation by your physician Discharge Instructions: - Discharge Summary Sheet chetan - Joint Pain chetan - Musculoskeletal Pain chetan - Hip Pain chetan - Joint Pain, [id number] chetan Forms: - Medication Reconciliation Form chetan - Thank You Letter chetan - Antibiotic Education chetan - Prescription Opioid Use chetan Signatures: Stu Banerjee MD MD cha Lewis, Lynsay RN RN ll1
[2022-09-12] MEDS ORDERED: DIAZEPAM 5 MG TABLET ONE (09:51)
[2022-09-12] MEDS ORDERED: KETOROLAC 30 MG/ML INJ ONE (09:51)
[2022-09-12 11:03] VITALS: TEMP 98.6; O2SAT 97
[2022-09-12 11:04] VITALS: BP 128/68
== END 2022-09-12 10:58 | disposition home or self-care (01) ==
LOC: ER 08:40
DX: G89.29 Other chronic pain (principal); Z88.5 Allergy status to narcotic agent; Z88.8 Allergy status to other drugs, medicaments and biological substances
CPT/HCPCS: 96372; 99283

== ENCOUNTER 2022-09-29 16:10 | Emergency (ER) | payer OTHER ==
--- OUTSIDE RECORDS SUMMARY | 2022-09-29 16:18 | XMS REPORT | Continuity of Care Document ---
:1950 Author Organization [facility] t Address [address] [place] [address] Care Team Providers Name Role Phone CALVIN [...] PACO LACEY Attending Clinician Unavailable Doctor Unassigned, [place] Attending Clinician Unavailable Wilder VILLAREAL, Angi K.HWong Attending Clinician Jl Mccabe MD Attending Clinician Kelly Washington MD Attending Clinician [phone] Mukul Gallardo MD Attending Clinician MUKUL GALLARDO Admitting Clinician Unavailable Harrison MD, Premal G Admitting Clinician KRUPA VIKA G Admitting Clinician Unavailable Nicci VILLAREAL, Mukul Anand Admitting Clinician Payers Payer Name Policy Type Policy Number Effective Date Expiration Date Tony doe MEDICARE PART A [id number] 2007 \\T\\ B 00:00:00 [employer] INDEMNITY [id number] 2016 00:00:00 MEDICARE PART A [id number] 2014 \\T\\ B - MEDICARE 00:00:00 INDEMNITY/TRADITIO [id number] NAL CHOICE - [employer] 00:00:00 Problems Condition [...] ents Source Name Type Date Date Clinician Cameron Propensi Active Rash 2019- Univers ty to [...] Quantity Comments Source Exposure to Not sure [place] of SARS-CoV-2 [place] [facility] (event) Branch History of Chews Tobacco University of tobacco use [place] [facility] History SDOH 2020-11-17 2020-11-17 5 University o f Financial 00:00:00 00:00:00 [place] [facility] History SDWA Food 2020-11-17 2020-11-17 1 Univers ity of Worry 00:00:00 00:00:00 [place] [facility] History SDOH Food 2020-11-17 2020-11-17 1 Univers ity of Scarcity 00:00:00 00:00:00 [place] [facility] History SDOH 2020-11-17 2020-11-17 1 University o f Transport Med 00:00:00 00:00:00 [place] [facility] al Branch History SDOH 2020-11-17 2020-11-17 1 University o f Transport Non-Med 00:00:00 00:00:00 [place] [facility] edical Branch Education 2020-11-16 2020-11-16 21 [place] of 00:00:00 [facility]:00:00 [facility] Alcohol intake 2020-11-16 2020-11-16 Ex-drinker [facility] 00:00:00 00:00:00 (finding) [facility] Tobacco use and 2020-08-21 2020-08-21 Former user Universi ty of exposure 00:00:00 00:00:00 [facility] Tobacco Comment 2020-08-21 2020-08-21 quit 10 years Univer sity of 00:00:00 00:00:00 ago, started in [place] Med ical 2nd year of Branch college (~40 years) Alcohol Comment 2020-08-21 2020-08-21 Used to have 2-3 Uni versity of 00:00:00 00:00:00 six-packs of [place] Medica l beer daily x 20 Branch years, quit 2004 History [facility] 2020-08-21 2020-08-21 99 University o f Alcohol Frequency 00:00:00 00:00:00 [place] [facility] edical Branch History [facility] 2020-08-21 2020-08-21 99 [place] o f Alcohol Std 00:00:00 00:00:00 [place] [facility] Drinks Branch History [facility] 2020-08-21 2020-08-21 99 [place] o f Alcohol Binge 00:00:00 00:00:00 [facility] [place] [place] Sex Assigned At [birth year] Universit y of 00:00:00 00:00:00 [facility] Smoking Status Start Date Stop Date Source Never smoker [facility] Medications Ordered Filled Start Stop [...] by ity of tablet 22:47: mouth at [place] 18 bedtime. Medical Branch HYDROmorpho 2020-0 Yes [...] by ity of tablet 22:47: mouth at [place] 18 bedtime. Medical Branch HYDROmorpho 0 Yes [...] by ity of tablet 16:47: mouth at [place] 18 bedtime. Medical Branch HYDROmorpho 0 Yes [...] 0845, Until Discontinu ed, Routine amLODIPine Yes [id number] 10mg Take 1 Univers 10 mg 3-07 tablet by ity of tablet 00:00: mouth [place] 00 daily. Medical Branch clotrimazol Yes [id number] Apply to Univers e 1 % 3-07 face/ears, ity of topical 00:00: armpits, [place] cream 00 pannus and Medical back/any Branch other rash twice a day fluocinonid 0 Yes [id number] Apply to Univers e 0.05 % 3-07 scalp ity of solution 00:00: twice a [place] 00 day Medical Branch triamcinolo Yes [id number] Apply to Univers ne 3-07 back, ity of acetonide 00:00: armpits [place] 0.1 % cream 00 and other Med ical affected Branch areas twice daily, please mix with clotrimazo le hydrOXYzine Yes [id number] 10mg Take 1 Univers 10 mg 3-07 tablet by ity of tablet 00:00: mouth 2 00 (two) Medical times Branch daily. amLODIPine Yes [id number] 10mg Take 1 Univers 10 mg 3-07 tablet by ity of tablet 00:00: mouth [place] 00 daily. Medical Branch clotrimazol Yes [id number] Apply to Univers e 1 % 3-07 face/ears, ity of topical 00:00: armpits, [place] cream 00 pannus and Medical back/any Branch other rash twice a day fluocinonid Yes [id number] Apply to Univers e 0.05 % 3-07 scalp ity of solution 00:00: twice a day Medical Branch triamcinolo Yes [id number] Apply to Univers ne 3-07 back, ity of acetonide 00:00: armpits [place] 0.1 % cream 00 and other Med ical affected Branch areas twice daily, please mix with clotrimazo le hydrOXYzine Yes [id number] 10mg Take 1 Univers 10 mg 3-07 tablet by ity of tablet 00:00: mouth 2 [place] 00 (two) Medical times Branch daily. amLODIPine Yes [id number] 10mg Take 1 Univers 10 mg 3-07 tablet by ity of tablet 00:00: mouth [place] 00 daily. Medical Branch clotrimazol 0 Yes [id number] Apply to Univers e 1 % 3-07 face/ears, ity of topical 00:00: armpits, [place] cream 00 pannus and Medical back/any Branch other rash twice a day fluocinonid 2020-0 Yes [id number] Apply to Univers e 0.05 % 3-07 scalp ity of solution 00:00: twice a day Medical Branch triamcinolo 2020-0 Yes [id number] Apply to Univers ne 3-07 back, ity of acetonide 00:00: armpits [place] 0.1 % cream 00 and other Med ical affected Branch areas twice daily, please mix with clotrimazo le hydrOXYzine Yes [id number] 10mg Take 1 Univers 10 mg 3-07 tablet by ity of tablet 00:00: mouth 2 [place] (two) Medical times Branch daily. amLODIPine Yes [id number] 10mg Take 1 Univers 10 mg 3-07 tablet by ity of tablet 00:00: mouth [place] 00 daily. Medical Branch clotrimazol Yes [id number] Apply to Univers e 1 % 3-07 face/ears, ity of topical 00:00: armpits, [place] cream 00 pannus and Medical back/any Branch other rash twice a day fluocinonid Yes [id number] Apply to Univers e 0.05 % 3-07 scalp ity of solution 00:00: twice a day Medical Branch triamcinolo 0 Yes [id number] Apply to Univers ne 3-07 back, ity of acetonide 00:00: armpits [place] 0.1 % cream 00 and other Med ical affected Branch areas twice daily, please mix with clotrimazo le hydrOXYzine Yes [id number] 10mg Take 1 Univers 10 mg 3- tablet by ity of tablet 00:00: mouth 2 (two) Medical times Branch daily. cephALEXin 2020-2020- No [id number] 500mg Take 1 Univers 500 mg -04 14- capsule by ity of capsule 00:00: 05:59 mouth [place] 00 :00 every 6 Medical (six) Branch hours for 3 days. cephALEXin 2020-0 2020- No [id number] 500mg Take 1 Univers 500 mg 3-04 14- capsule by ity of capsule 00:00: 05:59 mouth [place] 00 :00 every 6 Medical (six) Branch hours for 3 days. hydrOXYzine 2020-2020- No [id number] 10mg Take 1 Univers 10 mg 3- 03-07 tablet by ity of tablet 00:00: 00:00 mouth 2 [place] 00 :00 (two) Medical times [place] daily. morpHINE Yes 4mg 4 mg, Slow Uni vers injection 4 -06 IV Push, ity of mg 22:40: Q6HPRN, [place] 02 Starting Medical 12/16/20 [place] at 1640, Until Discontinu ed, Routine, Pain [...] 00 :00 dose, Sat Medical 12/16/20 at [place] 0515, Routine lactated 2020- No 1000mL at 125 Univ ers ringers IV 12-16 03-06 mL/hr, ity of infusion 01:00: 00:16 1,000 mL, [place] 1,000 mL 00 :00 IV Medical Infusion, [place] ONCE, 1 dose, 12/15/20 at 1900, Routine iohexol 2020- No 100mL 100 mL, Unive rs (OMNIPAQUE 12-15-05 Intravenou it y of 350 22:24: 22:24 s, ONCE, 1 [place] BULK-100 00 :00 dose, Fri Medica l mL) 12/15/20 at [place] injection 1645, 100 mL Routine cephALEXin 2020- [...] NaCl 0.9% 2020- No 500mL at 999 [facility] ers (NS) bolus 12-15-05 mL/hr, 500 it y of infusion 16:00: 15:26 mL, IV [place] 500 mL 00 :00 Piggyback, Medical ONCE, 1 Branch dose, Fri12/15/20 at 1000, STAT HYDROmorpho Yes 4mg 4 mg, [facility] 05 Oral, BID, ity of (DILAUDID) 15:30: First dose [place] tablet 4 mg 00 (after Medica l last Branch modificati on) on Fri12/15/20 at 0930, Until Discontinu ed, Routine amLODIPine 2020- No [id number] 10mg Take 1 Univers 10 mg 12-1507 tablet by ity of tablet 00:00: 00:00 mouth [place] 00 :00 daily. Medical Branch HYDROmorpho 2020- No 1mg 1 mg, [facility] ers ne 12-14 03-05 Oral, ity of (DILAUDID) 17:35: 15:18 Q6HPRN, [place] tablet 1 mg 30 :06 Starting Medi [facility] 12/14/20 Branch at 1135, Until Fri12/15/20 at 0918, Routine, Pain (scale 7-10) hydrOXYzine Yes 10mg 10 mg, [facility] ers (ATARAX) 304 Oral, BID, ity o f tablet 10 17:30: First dose [place] mg 00 on [facility] 12/14/20 at Branch 1130, Until Discontinu ed, Routine lisinopriL 0 Yes 5mg 5 mg, Univer s (PRINIVIL,Z -04 Oral, ity of ESTRIL) 17:30: DAILY, [place] tablet 5 mg 00 First dose Me dical on [facility] Branch 12/14/20 at 1130, Until Discontinu ed, Routine triamcinolo 2020- No [id number] Apply to Univers ne 12-14 back, ity of acetonide 00:00: 00:00 armpits [place] 0.1 % cream 00 :00 and other Med ical affected Branch areas twice daily, please mix with clotrimazo le clotrimazol 2020- No [id number] Apply to Univers e 1 % 12-14 face/ears, ity of topical 00:00: 00:00 armpits, [place] cream 00 :00 pannus and Medical back/any Branch other rash twice a day fluocinonid 2020- No [id number] Apply to Univers e 0.05 % 12-14 scalp ity of solution 00:00: 00:00 twice a [place] 00 :00 day Medical Branch hydrOXYzine 2020- No [id number] 10mg Take 1 Univers 10 mg 12-14 [...] 1 [place] injection 4 00 :00 dose, [facility] ical mg 12/12/20 at Branch 2300, Routine traMADoL 2020- No 50mg 50 mg, Univer s (ULTRAM) 12-13 03-03 Oral, ity of tablet 50 03:45: 03:34 ONCE, 1 [place] mg 00 :00 dose, [facility] 12/12/20 at Branch 2145, Routine insulin Yes 15U 15 Units, [facility] rs glargine 12-12 Subcutaneo ity o f (LANTUS 15:00: us, DAILY, [place] U-100) 00 First dose Medical injection on [facility] 15 Units 12/12/20 at 0900, Until [...] 00 Fri12/11/20 Me dical cream at 1315, [place] Until Discontinu ed, Routine hydrocortis 0 Yes [...] ity of 1,000 mg in 19:00: 17:35 [place], [place] NaCl 0.9% 00 :26 Q8H ABX, [...] ed, Routine insulin Yes 5U 5 Units, [facility] lispro 12-11 Subcutaneo ity of (human) 18:00: us, TID [place] (HumaLOG 00 MEALS, Medical U-100) First dose Branch injection 5 on Mon Units 12/11/20 at 1200, Until Discontinu ed Polyethylen Yes 17g 17 g, [facility] rs e Glycol 12-11 Oral, ity of 3350 17:47: [id number], [place] (MIRALAX) 05 Starting Medica l powder [...] 0630, STAT piperacilli No 3.375g 3.375 g, [facility] n-tazobacta 12-11 IV ity of m (ZOSYN) 12:00: 17:48 [place]back, [place] injection 00 :24 Q6H, First Medi jose c 3.375 g dose on Branch Fri12/11/20 at 0600, Until Discontinu ed, KAHLIL
Re ason for Anti-Infec tive: Empiric Therapy for Suspected Infection< br>Empiric Therapy Site: Skin / Soft tissue
Duration of therapy: 72 hours sennosides- Yes [id number] 1{tbl} Take 1 [facility] docusate 2-09 tablet by ity of sodium 00:00: mouth 2 [place] 8.6-50 mg 00 (two) Medical per tablet times Branch daily. hydrocortis Yes [id number] Apply to [facility] one 2.5 % 11-21 affected ity of cream 00:00: area(s) 2 [place] 00 (two) Medical times Branch daily. blood sugar Yes [id number] Use to [facility] diagnostic 2 check ity of (FREESTYLE 00:00: blood [place] LITE 00 glucose Medical STRIPS) 4-5 times Branch strip daily. Polyethylen Yes [id number] 17g Take 1 Univers e Glycol 2-09 Packet by ity of 3350 17 00:00: mouth [place] gram powder 00 every 24 Medi jose c (twenty-fo Branch ur) hours as needed for Constipati on. sennosides- Yes [id number] 1{tbl} Take 1 Univers docusate 2-09 tablet by ity of sodium 00:00: mouth 2 [place] 8.6-50 mg 00 (two) Medical per tablet times Branch daily. hydrocortis Yes [id number] Apply to Univers one 2.5 % 2-09 affected ity of cream 00:00: area(s) 2 [place] 00 (two) Medical times Branch daily. blood sugar Yes [id number] Use to Univers diagnostic 11-21 check ity of (FREESTYLE 00:00: blood [place] LITE 00 glucose Medical STRIPS) 4-5 times Branch strip daily. Polyethylen Yes [id number] 17g Take 1 Univers e Glycol 2-09 Packet by ity of 3350 17 00:00: mouth [place] gram powder 00 every 24 Medi jose c (twenty-fo Branch ur) hours as needed for Constipati on. sennosides- Yes [id number] 1{tbl} Take 1 Univers docusate 2-09 tablet by ity of sodium 00:00: mouth 2 [place] 8.6-50 mg 00 (two) Medical per tablet times Branch daily. hydrocortis Yes [id number] Apply to Univers one 2.5 % 2-09 affected ity of cream 00:00: area(s) 2 [place] 00 (two) Medical times Branch daily. blood sugar Yes [id number] Use to Univers diagnostic 11-21 check ity of (FREESTYLE 00:00: blood [place] LITE 00 glucose Medical STRIPS) 4-5 times Branch strip daily. Polyethylen 2020-0 Yes [id number] 17g Take 1 Univers e Glycol 2-09 Packet by ity of 3350 17 00:00: mouth [place] gram powder 00 every 24 Medi jose c (twenty-fo Branch ur) hours as needed for Constipati on. sennosides- Yes [id number] 1{tbl} Take 1 Univers docusate 2-09 tablet by ity of sodium 00:00: mouth 2 [place] 8.6-50 mg 00 (two) Medical per tablet times Branch daily. hydrocortis Yes [id number] Apply to [facility] one 2.5 % 11-21 affected ity of cream 00:00: area(s) 2 [place] 00 (two) Medical times Branch daily. blood sugar Yes [id number] Use to [facility] diagnostic 11-21 check ity of (FREESTYLE 00:00: blood [place] LITE 00 glucose Medical STRIPS) 4-5 times Branch strip daily. Polyethylen Yes [id number] 17g Take 1 Univers e Glycol 11-21 Packet by ity of 3350 17 00:00: mouth [place] gram powder 00 every 24 Medi jose c (twenty-fo Branch ur) hours as needed for Constipati on. Insulin 2020- No [id number] 15U inject 15 Univers Glargine 11-21- Units ity of (LANTUS 00:00: 05:59 under the [employer] SOLOSTAR 00 :00 skin every Medic al U-100 morning Branch INSULIN) for 30 100 unit/mL days. (3 mL) injection venlafaxine 2020- No [id number] 150mg Take 1 Univers XR 150 mg 11-21 capsule by ity of 24 hr 00:00: 05:59 mouth 3 [place] capsule 00 :00 (three) Medical times Branch daily for 30 days. Insulin 2020- No [id number] 15U inject 15 Univers Glargine 11-21-12 Units ity of (LANTUS 00:00: 05:59 under the [employer] SOLOSTAR 00 :00 skin every Medic al U-100 morning Branch INSULIN) for 30 100 unit/mL days. (3 mL) injection venlafaxine 2020- No [id number] 150mg Take 1 Univers XR 150 mg 11-21- capsule by ity of 24 hr 00:00: 05:59 mouth 3 [place] capsule 00 :00 (three) Medical times Branch daily for 30 days. triamcinolo 2020- No [id number] Apply to [facility] ne 11-21-04 area(s) 2 ity of acetonide 00:00: 00:00 (two) [place] 0.1 % cream 00 :00 times Medical daily. Branch cephALEXin 2020- No [id number] 1000mg Take 2 Univers 500 mg 11-21 capsules ity of capsule 00:00: 00:00 by mouth 3 [place] 00 :00 (three) Medical times Branch daily. doxycycline 2020- No [id number] 100mg Take 1 Univers hyclate 100 11-21 capsule by i ty of mg capsule 00:00: 00:00 mouth [place] 00 :00 every 12 Medical (twelve) Branch hours. lactobacill 2020- No [id number] 1{tbl} Take 1 Univers us 11-21 tablet by ity of acidophilus 00:00: 00:00 mouth 2 [place] 25 million 00 :00 (two) Medical cell -100 times Branch mg captab daily. bisacodyL 2020- No [id number] 10mg Insert 1 Univers 10 mg 11-21 Suppositor ity of suppository 00:00: 00:00 y into [place] 00 :00 rectum at Medical bedtime as Branch needed for Constipati on. ALPRAZolam 2020- No [id number] .25mg Take 1 Univers (XANAX) 11-21 tablet by ity of 0.25 mg 00:00: 00:00 mouth 2 [place] tablet 00 :00 (two) Medical times Branch daily. hydrOXYzine 2020- No [id number] 20mg Take 2 Univers 10 mg 11-21 [...] 3 ity of 6 mg 01:13: (three) [place] capsule 36 times Medical daily. Branch Insulin [...] 3 ity of 6 mg 01:13: (three) [place] capsule 36 times Medical daily. Branch Insulin [...] Units ity of (NOVOLOG 01:13: under the [facility] s FLEXPEN SC) 36 skin. Medical Branch ALPRAZolam 2019-10 Yes .25mg Take 0.25 U nivers (XANAX) 1-12 mg by ity of 0.25 mg 01:13: mouth 2 [place] tablet 36 (two) Medical times Branch daily. HYDROXYZINE 2019-10 2020- No 25mg Take 25 mg Univers PAMOATE 1-11 11-11 by mouth ity of ORAL 20:04: 00:00 daily. [place] 34 :00 Medical Branch hydrocortis 2019-10 Yes [id number] Apply to Univers one 2.5 % 1-11 affected ity of cream 00:00: area(s) 2 [place] 00 (two) Medical times Branch daily. hydrOXYzine 2019-10 Yes [id number] 20mg Take 2 Univers 10 mg 1-11 tablets by ity of tablet 00:00: mouth [place] 00 every 8 Medical (eight) Branch hours as needed for Itching or Anxiety. Polyethylen 2019-10 Yes [id number] 17g Take 1 Univers e Glycol 1-11 Packet by ity of 3350 17 00:00: mouth [place] gram powder 00 every 24 Medi jose c (twenty-fo Branch ur) hours as needed for Constipati on. hydrocortis 2019-10 Yes [id number] Apply to Univers one 2.5 % 1-11 affected ity of cream 00:00: area(s) 2 [place] 00 (two) Medical times Branch daily. hydrOXYzine 2019- Yes [id number] 20mg Take 2 Univers 10 mg 1-11 tablets by ity of tablet 00:00: mouth [place] 00 every 8 Medical (eight) Branch hours as needed for Itching or Anxiety. Polyethylen 2019- Yes [id number] 17g Take 1 Univers e Glycol 1-11 Packet by ity of 3350 17 00:00: mouth [place] gram powder 00 every 24 Medi jose c (twenty-fo Branch ur) hours as needed for Constipati on. hydrocortis 2019- Yes [id number] Apply to Univers one 2.5 % 1-11 affected ity of cream 00:00: area(s) 2 [place] (two) Medical times Branch daily. hydrOXYzine 2019-10 Yes [id number] 20mg Take 2 Univers 10 mg 1-11 tablets by ity of tablet 00:00: mouth [place] 00 every 8 Medical (eight) Branch hours as needed for Itching or Anxiety. Polyethylen 2019- Yes [id number] 17g Take 1 Univers e Glycol 1-11 Packet by ity of 3350 17 00:00: mouth [place] gram powder 00 every 24 Medi jose c (twenty-fo Branch ur) hours as needed for Constipati on. hydrocortis 2019-10 Yes [id number] Apply to Univers one 2.5 % 1-11 affected ity of cream 00:00: area(s) 2 [place] (two) Medical times Branch daily. hydrOXYzine 2019-10 Yes [id number] 20mg Take 2 Univers 10 mg 1-11 tablets by ity of tablet 00:00: mouth [place] 00 every 8 Medical (eight) Branch hours as needed for Itching or Anxiety. Polyethylen 2019-10 Yes [id number] 17g Take 1 Univers e Glycol 1-11 Packet by ity of 3350 17 00:00: mouth [place] gram powder 00 every 24 Medi jose c (twenty-fo Branch ur) hours as needed for Constipati on. hydrocortis 2019-10 Yes [id number] Apply to Univers one 2.5 % 1-11 affected ity of cream 00:00: area(s) 2 [place] 00 (two) Medical times Branch daily. hydrOXYzine 2019-10 Yes [id number] 20mg Take 2 Univers 10 mg 1-11 tablets by ity of tablet 00:00: mouth [place] 00 every 8 Medical (eight) Branch hours as needed for Itching or Anxiety. Polyethylen 2019- Yes [id number] 17g Take 1 Univers e Glycol 1-11 Packet by ity of 3350 17 00:00: mouth [place] gram powder 00 every 24 Medi jose c (twenty-fo Branch ur) hours as needed for Constipati on. hydrocortis 2019-10 Yes [id number] Apply to Univers one 2.5 % 1-11 affected ity of cream 00:00: area(s) 2 [place] 00 (two) Medical times Branch daily. hydrOXYzine 2019- Yes [id number] 20mg Take 2 Univers 10 mg 1-11 tablets by ity of tablet 00:00: mouth [place] 00 every 8 Medical (eight) Branch hours as needed for Itching or Anxiety. Polyethylen 2019- Yes [id number] 17g Take 1 Univers e Glycol 1-11 Packet by ity of 3350 17 00:00: mouth [place] gram powder 00 every 24 Medi jose c (twenty-fo Branch ur) hours as needed for Constipati on. hydrocortis 2019- Yes [id number] Apply to Univers one 2.5 % 1-11 affected ity of cream 00:00: area(s) 2 [place] 00 (two) Medical times Branch daily. hydrOXYzine 2019- Yes [id number] 20mg Take 2 Univers 10 mg 1-11 tablets by ity of tablet 00:00: mouth [place] 00 every 8 Medical (eight) Branch hours as needed for Itching or Anxiety. Polyethylen 2019- Yes [id number] 17g Take 1 Univers e Glycol 1-11 Packet by ity of 3350 17 00:00: mouth [place] gram powder 00 every 24 Medi jose c (twenty-fo Branch ur) hours as needed for Constipati on. triamcinolo 2019- 2020- No [id number] Apply to Univers ne 10-23 area(s) 2 ity of acetonide 00:00: 05:59 (two) [place] 0.1 % cream 00 :00 times Medical daily for Branch 14 days. triamcinolo 2019- 2020- No [id number] Apply to Univers ne 10-23 area(s) 2 ity of acetonide 00:00: 05:59 (two) [place] 0.1 % cream 00 :00 times Medical daily for Branch 14 days. triamcinolo 2020- 2020- No [id number] Apply to [facility] ne 10-23 area(s) 2 ity of acetonide 00:00: 05:59 (two) [place] 0.1 % cream 00 :00 times Medical daily for Branch 14 days. KCL 2019- 2020- No 40meq 40 mEq, Univers (KLOR-CON 1-10 11-10 Oral, ONCE ity of M20) tablet 16:15: 16:23 NOW, 1 [place] 40 mEq 00 :00 dose, [facility] 08/22/20 Branch at 1015, Routine HYDROmorpho 2019-10 Yes 1mg 1 mg, Unive rs ne 1-10 Oral, ity of (DILAUDID) 15:07: Q6HPRN, [place] tablet 1 mg 53 Starting [facility] 08/22/20 at 0907, Until Discontinu ed, Routine, Pain (scale 7-10) hydrocortis 2019-10 Yes Topical Uni vers one 2.5 % 1-10 (Apply To ity o f cream 02:00: Affected [place] 00 Areas), Medical BID, First Branch dose on [facility] 08/21/20 at 2000, Until Discontinu ed, Routine triamcinolo 2019-10 Yes Topical, Un toi ne 1-10 BID, First ity of acetonide 02:00: dose on [place] (TRIDERM) [facility] Medical 0.1 % cream 08/21/20 at Br anch 2000, Until Discontinu ed, Routine hydrOXYzine 2019-10 Yes 20mg 20 mg, Univ ers (ATARAX) 09 Oral, ity of tablet 20 17:39: Q8HPRN, [place] mg 12 Starting [facility] 08/21/20 at 1139, Until Discontinu ed, Routine, Itching, Anxiety sennosides- 2019-10 Yes 1{tbl} 1 tablet, Univers docusate 10-21 Oral, ity of sodium 15:00: DAILY, [place] (SENOKOT-S) 00 First dose Me dical 8.6-[address] [facility] per tablet 08/21/20 at 1 tablet [...] dose [place] capsule 150 00 on [facility] Medica l mg 08/21/20 at Branch 0800, [...] 59 :43 Starting Medica l mg [facility] 08/21/20 at 0656, Until Fri08/21/20 at 1139, Routine, Itching, Mild Rash, Congestion /Allergies , alternate with hydroxyzin e hydrOXYzine 2019-10- No 10mg 10 mg, Uni vers (ATARAX) 10-21 Oral, ity of tablet 10 10:20: 12:57 Q6HPRN, [place] mg 22 :[address] [facility] 08/21/20 at 0420, Until Fri08/21/20 at [...] ity o f 09:30: 09:14 dose, [facility] 00 :00 08/21/20 at [facility] 0330, Branch Routine Polyethylen 2019-10 Yes 17g 17 g, [facility] Glycol 10-21 Oral, ity of 3350 08:29: [id number], [place] (MIRALAX) 09 Starting Medica l powder [address] [facility] 08/21/20 at 0229, Until Discontinu ed, Routine, Constipati on lanolin 2019-10 Yes Topical, Univer s alcohol-mo- 10-21 PRN, ity of w.pet-ceres 08:26: Starting [place] (EUCERIN) 30 [facility] Medical cream 08/21/20 at Branch 0226, Until [...] 1-3) sotalol 2019-10 2020- No Take by [facility] [place] [facility] s (BETAPACE) 10-21 mouth ity of 240 mg 07:43: 00:00 every 12 [place] tablet 30 :00 (twelve) Medical hours. Branch blood sugar Yes Use to [facility] ers diagnostic 4-25 check ity of (FREESTYLE 00:00: blood [place] LITE 00 glucose Medical STRIPS) 4-5 times Branch strip daily. blood sugar Yes Use to [facility] ers diagnostic 4-25 check ity of (FREESTYLE 00:00: blood [place] LITE 00 glucose Medical STRIPS) 4-5 times Branch strip daily. blood sugar Yes Use to [facility] ers diagnostic 4-25 check ity of (FREESTYLE 00:00: blood [place] LITE 00 glucose Medical STRIPS) 4-5 times Branch strip daily. blood sugar Yes Use to [facility] ers diagnostic 4-25 check ity of [...] 2021-08-22 13:00:00 148 mm[Hg] Univer sity [facility] Diastolic blood 2021-08-22 13:00:00 84 mm[Hg] Unive [facility] Heart rate 2021-08-22 13:00:00 103 /min [facility] Respiratory rate 2021-08-22 13:00:00 18 /min [facility] Oxygen saturation in 2021-08-22 13:00:00 95 /min [facility] of Arterial blood by [facility] Pulse oximetry [place] Body temperature 2021-08-22 12:22:00 36.72 [facility] Systolic blood 2020-12-17 18:35:00 139 mm[Hg] Univer sity [facility] Diastolic blood 2020-12-17 18:35:00 87 mm[Hg] [facility] Heart rate 2020-12-17 18:35:00 110 /min [facility] Body temperature 2020-12-17 18:35:00 37.72 [facility] Respiratory rate 2020-12-17 18:35:00 18 /min [facility] Oxygen saturation in 2020-12-17 18:35:00 93 /min [facility] of Arterial blood by [facility] Pulse oximetry Branch Body height 2020-12-12 08:21:00 180.3 cm [facility] [place] [facility] Body weight 2020-12-12 08:21:00 103.42 kg [facility] [place] [facility] BMI 2020-12-12 08:21:00 31.80 kg/m2 [facility] [place] [facility] Systolic blood 2020-12-17 [...] 93 /min [facility] Arterial blood by [facility] Pulse oximetry Branch Body height 2020-12-12 08:21:00 180.3 cm [facility] [place] [facility] Body weight 2020-12-12 08:21:00 103.42 [...] 93 /min [facility] Arterial blood by [facility] Pulse oximetry Branch Body weight 2020-08-21 07:20:00 104.962 kg [facility] [place] [facility] BMI 2020-08-21 07:20:00 32.27 kg/m2 [facility] [place] [facility] Systolic blood 2020-08-23 19:27:00 140 mm[Hg] [facility] Diastolic blood 2020-08-23 19:27:00 79 mm[Hg] [facility] Heart rate 2020-08-23 19:27:00 99 /min [facility] Body temperature 2020-08-23 19:27:00 36 [facility] Respiratory rate 2020-08-23 19:27:00 18 /min [facility] Oxygen saturation in 2020-08-23 19:27:00 93 /min [facility] blood by [facility] Pulse oximetry [place] Body weight 2020-08-21 07:20:00 104.962 kg [facility] BMI 2020-08-21 07:20:00 32.27 kg/m2 [facility] Procedures Procedure Date / Time Performing Clinician Source Performed POCT GLUCOSE (AUTOMATED) 2020-12-17 15:42:00 Favio Harrisonal G Uni [facility] BASIC METABOLIC PANEL 2020-12-17 10:45:00 Paul Bean [facility] (NA, K, CL, CO2, GLUCOSE, [facility] BUN, CREATININE, CA) CBC WITH DIFF 2020-12-17 10:45:00 Paul Bean [facility] POCT GLUCOSE (AUTOMATED) 2020-12-17 02:36:00 Harrison [facility] Uni [facility] XR TIBIA FIBULA 2 VW LEFT 2020-12-16 23:38:00 [facility] ([facility]OMATED) 2020-12-16 23:20:00 Harrison, [facility]al [facility] PO[facility]UCOSE (AUTOMATED) 2020-12-16 20:10:00 Harrison, [facility]al [facility] PO[facility]UCOSE (AUTOMATED) 2020-12-16 14:43:00 [facility] BASIC METABOLIC PANEL 2020-12-16 13:51:00 Paul Bean [facility] (NA, K, CL, CO2, GLUCOSE, [facility] BUN, CREATININE, CA) CBC WITH DIFF 2020-12-16 13:51:00 Paul Bean [facility] POCT GLUCOSE (AUTOMATED) 2020-12-16 04:00:00 Harrison, Premal [facility] POCT GLUCOSE (AUTOMATED) 2020-12-16 00:14:00 Harrison, Premal G Uni versity [facility] CT CHEST PULMONARY 2020-12-15 22:29:38 Paul Bean [facility] ANGIOGRAM [facility] POCT GLUCOSE (AUTOMATED) 2020-12-15 19:26:00 Harrison, Premal [facility] POCT GLUCOSE (AUTOMATED) 2020-12-15 15:13:00 Krupa, Premal G Uni [facility] HB ECG ROUTINE & RHYTHM 2020-12-15 14:25:27 Cailin Romo [facility] MAGNESIUM 2020-12-15 12:01:00 Paul Bean Sivakumar [facility] BASIC METABOLIC PANEL 2020-12-15 12:01:00 Paul Bean [facility] (NA, K, CL, CO2, GLUCOSE, [facility] BUN, CREATININE, CA) CBC WITH DIFF 2020-12-15 12:01:00 Paul Bean [facility] POCT GLUCOSE (AUTOMATED) 2020-12-15 03:57:00 Harrison, Premal G [facility] POCT GLUCOSE (AUTOMATED) 2020-12-14 23:31:00 Harrison, Premal G [facility] POCT GLUCOSE (AUTOMATED) 2020-12-14 19:08:00 Harrison, Premal G [facility] POCT GLUCOSE (AUTOMATED) 2020-12-14 15:11:00 Harrison, Premal G [facility] POCT GLUCOSE (AUTOMATED) 2020-12-14 02:36:00 Harrison, Premal G [facility] POCT GLUCOSE (AUTOMATED) 2020-12-13 23:32:00 Harrison, Premal G [facility] POCT GLUCOSE (AUTOMATED) 2020-12-13 18:08:00 Harrison, Premal G [facility] BASIC METABOLIC PANEL 2020-12-13 15:39:00 Paul Bean [facility] (NA, K, CL, CO2, GLUCOSE, [facility] BUN, CREATININE, CA) CBC WITH DIFF 2020-12-13 15:39:00 Paul Bean [facility] POCT GLUCOSE (AUTOMATED) 2020-12-13 14:06:00 Harrison, Premal G [facility] POCT GLUCOSE (AUTOMATED) 2020-12-13 03:07:00 Harrison, Premal G [facility] POCT GLUCOSE (AUTOMATED) 2020-12-12 23:52:00 Harrison, Premal G [facility] POCT GLUCOSE (AUTOMATED) 2020-12-12 20:28:00 Harrison, Premal G [facility] POCT GLUCOSE (AUTOMATED) 2020-12-12 19:14:00 Harrison, Premal G [facility] POCT GLUCOSE (AUTOMATED) 2020-12-12 14:33:00 Harrison, Premal G [facility] MAGNESIUM 2020-12-12 08:58:00 Paul Bean [facility] BASIC METABOLIC PANEL 2020-12-12 08:58:00 Paul Bean [facility] (NA, K, CL, CO2, GLUCOSE, [facility] BUN, CREATININE, CA) CBC WITH DIFF 2020-12-12 08:58:00 Paul Bean [facility] US ABDOMEN LIMITED 2020-12-12 06:32:26 Paul Bean [facility] POCT GLUCOSE (AUTOMATED) 2020-12-12 03:40:00 Harrison, Premal G [facility] POCT GLUCOSE (AUTOMATED) 2020-12-12 00:06:00 Harrison, Premal G [facility] XR HIPS 3 VW LEFT 2020-12-11 20:20:00 Paul Bean Sivakumar [facility] HB ECG ROUTINE & RHYTHM 2020-12-11 20:04:06 Demetrius [facility] STRIP [facility] VITAMIN B6, PLASMA 2020-12-11 19:17:00 [facility] POCT GLUCOSE (AUTOMATED) 2020-12-11 19:06:00 Vika Harrison [facility] CREATINE KINASE 2020-12-11 18:22:00 Parvez [facility] VITAMIN B12, LEVEL 2020-12-11 18:22:00 Vikas [facility] FOLATE 2020-12-11 18:22:00 [facility] THYROID STIMULATING 2020-12-11 18:22:00 Demetrius [facility] HORMONE [facility] PROCALCITONIN 2020-12-11 18:22:00 Vikas [facility] VITAMIN B1 (THIAMINE), 2020-12-11 18:22:00 [facility] WHO[facility]LO[facility] CT HEAD WO CONTRAST 2020-12-11 14:07:35 Sweetie Stout [facility] URINALYSIS 2020-12-11 13:44:00 Singer [facility] URINE CULTURE 2020-12-11 13:44:00 Singer [facility] COVID-19 (ID NOW RAPID 2020-12-11 12:31:00 Paco Lacey [facility] TESTING) Medical Branch LAB ONLY COVID 2020-12-11 12:31:00 Singer [facility] INTERPRETATION [facility] XR CHEST 1 VW 2020-12-11 12:07:24 Singer [facility] BLOOD CULTURE SCREEN 2020-12-11 12:02:00 Paco Lacey [facility] MAGNESIUM 2020-12-11 12:02:00 Vikas [facility] FERRITIN SERUM 2020-12-11 12:02:00 Paul Bean [facility] Kaley [facility] COMP. METABOLIC PANEL 2020-12-11 12:02:00 Singer [facility] ([id number]) [facility] CBC WITH DIFF 2020-12-11 12:02:00 Singer [facility] LACTIC ACID WHOLE BLOOD 2020-12-11 12:02:00 Singer Paco [facility] BLOOD CULTURE SCREEN 2020-12-11 11:42:00 Singer Paco [facility] EMERGENCY SERVICES 2020-12-11 06:01:00 Doctor Unassigned, [facility] AGREEMENTS AND [place] [facility] [place] AUTHORIZATIONS HOSPITAL ADMISSION 2020-12-11 06:01:00 Doctor Unaowen, [facility] Name Medical [place] HOME HEALTH - OTHER 2020-11-11 06:01:00 Doctor Tabitha [facility] Name Medical [place] HOME HEALTH - OTHER 2020-10-30 06:01:00 Doctor Unaowen [facility] Name Medical [place] EXTERNAL PROVIDER RECORDS 2020-09-01 06:01:00 Doctor Tabitha, [facility] Name [facility] POCT GLUCOSE (AUTOMATED) 2020-08-23 18:09:00 Kelly Washington [facility] POCT GLUCOSE (AUTOMATED) 2020-08-23 14:14:00 Kelly Washington [facility] MAGNESIUM 2020-08-23 11:18:00 [place] [facility] BASIC METABOLIC PANEL 2020-08-23 11:18:00 [place] [facility] (NA, K, CL, CO2, GLUCOSE, Medica l Branch BUN, CREATININE, CA) CBC WITH DIFF 2020-08-23 11:18:00 [place] [facility] POCT GLUCOSE (AUTOMATED) 2020-08-23 10:21:00 Kelly Washington [facility] POCT GLUCOSE (AUTOMATED) 2020-08-23 05:55:00 Kelly Washington [facility] POCT GLUCOSE (AUTOMATED) 2020-08-23 03:00:00 Stefania [facility] ([facility]OMATED) 2020-08-22 23:38:00 Bety Washingtonmarie Elias versity [facility] POCT GLUCOSE (AUTOMATED) 2020-08-22 19:04:00 Bety Washingtonmarie [facility] POCT GLUCOSE (AUTOMATED) 2020-08-22 13:49:00 Kelly Washington Jada versity [facility] MAGNESIUM 2020-08-22 10:10:00 [facility] 2020-08-22 10:10:00 Aguila Melchor [facility] ([id number]) (ALB,T.PRO,BILI Medical Branch T,BU/BC,ALT,AST,ALK PHOS) BASIC METABOLIC PANEL 2020-08-22 10:10:00 [facility] (NA, K, CL, CO2, GLUCOSE, Medica l Branch BUN, CREATININE, CA) LIPID PANEL ([id number])(TOTAL 2020-08-22 10:10:00 [place], [facility] CHOLESTEROL, Medical [place] TRIGLYCERIDES, HDL) CBC WITH DIFF 2020-08-22 10:10:00 [facility] POCT GLUCOSE (AUTOMATED) 2020-08-22 10:10:00 Bety Washingtonmarie Elias [facility] POCT GLUCOSE (AUTOMATED) 2020-08-22 07:13:00 Kelly Washington Jada versity [facility] POCT GLUCOSE (AUTOMATED) 2020-08-22 02:24:00 Bety Washingtonmarie Elias versity [facility] POCT GLUCOSE (AUTOMATED) 2020-08-21 23:40:00 Kelly Washington Jada versity of [facility] POCT GLUCOSE (AUTOMATED) 2020-08-21 18:10:00 Kelly Washington Jada versity [facility] POCT GLUCOSE (AUTOMATED) 2020-08-21 13:39:00 Kelly Washington Jada versity [facility] ETHANOL 2020-08-21 12:35:00 [facility] 2020-08-21 12:35:00 Stefania [facility] GALV ONLY - SYPHILIS 2020-08-21 12:35:00 Stefania [facility]IGM [facility] LACTATE DEHYDROGENASE 2020-08-21 10:09:00 Ramya, [facility] GALV/CLC ONLY - URINE 2020-08-21 10:09:00 Richie [facility] DRUG (IMMUNOASSAY) - 4 ER Medica l Branch PANEL URINALYSIS 2020-08-21 10:09:00 Ramya, [facility] URINE CULTURE 2020-08-21 10:09:00 [place], [facility] PROCALCITONIN 2020-08-21 10:09:00 Ramya, [facility] POCT GLUCOSE (AUTOMATED) 2020-08-21 09:41:00 Stefania Kelly [facility] PROTHROMBIN TIME / INR 2020-08-21 08:32:00 [place], [facility] ACTIVATED PARTIAL 2020-08-21 08:32:00 Ramya, [facility] C-REACTIVE PROTEIN 2020-08-21 08:31:00 [place], [facility] HEPATIC FUNCTION PANEL 2020-08-21 08:31:00 [place], [facility] ([id number]) (ALB,T.PRO,BILI Medical Branch T,BU/BC,ALT,AST,ALK PHOS) BASIC METABOLIC PANEL 2020-08-21 08:31:00 Ramya, [facility] (NA, K, CL, CO2, GLUCOSE, [facility] BUN, CREATININE, CA) SEDIMENTATION RATE 2020-08-21 08:31:00 Ramya, [facility] CBC WITH DIFF 2020-08-21 08:31:00 Ramya, [facility] GLYCOSYLATED HEMOGLOBIN 2020-08-21 08:31:00 [place], [facility] (A1C) Medical Branch HIV 1/2 AG-AB WITH REFLEX 2020-08-21 08:31:00 Kelly [place] [facility] [place] [facility] COVID-19 (ID NOW RAPID 2020-08-21 08:20:00 [facility] TESTING) Medical Branch LAB ONLY COVID 2020-08-21 08:20:00 [place] [facility] [place] INTERPRETATION [facility] Branch Encounters Start End Encounter Admission Attending Care Care Encounter Source Date/Time Date/Time Type Type Clinicians Facility Department ID 2020-08-21 Inpatient U STEFANIA [facility] [id number] Univers 01:07:00 KELLY brandenana [facility] 2021-08-22 2021-08-22 Emergency [facility] [id number] Univers 06:21:00 08:02:00 SWEETIE cantu [facility] 2021-08-22 2021-08-22 Emergency [facility] [id number] Univers 06:21:00 08:02:00 Sweetie LOTT [id number] i ty of [place] [id number] [facility] 084 Branch 2021-08-09 2021-08-09 Outpatient JACQUELYN HAINES [facility] [id number] [facility] 10:27:03 10:27:03 ADRIANA lopez of Medicin e 2020-12-28 2020-12-28 Telephone [facility] [id number] 00:00:00 00:00:00 Calvin H PRIMARY [id number] CARE 4.2.7.2.686 PAVILLION [id number] 220 2020-12-28 2020-12-28 Telephone [facility] 1.2.840.114 [id number] Univers 00:00:00 00:00:00 Calvin H PRIMARY [id number] it y of [place] [id number] Nv dical 220 Branch 2020-12-19 2020-12-19 Transition Tuan Peters 1.2.840.114 [id number] 00:00:00 00:00:00 of Care Ruchi Braswell [id number] [place] 4.2.7.2.686 [id number] 403 2020-12-19 2020-12-19 Transition Tuan Peters 1.2.840.114 [id number] Univers 00:00:00 00:00:00 of Care Ruchi Braswell [id number] it y of [place] [id number] [facility] 403 Branch 2020-12-11 2020-12-17 [facility] Paco Laecy 1.2.840.1 [id number] 05:11:00 16:00:00 Encounter Vika [place] [id number] [facility] 4.2.7.2.686 [id number] [facility] 2020-12-11 2020-12-17 [facility] Paco Lacey 1.2.840.1 [id number] [facility] 05:11:00 16:00:00 Encounter Vika Harrison Monique [id number] [facility] [address] [place] [address] [id number] [facility] 096 Branch 2020-12-11 2020-12-17 Inpatient X [facility] [id number] Univers 05:11:00 16:00:00 pepe [facility] 2020-11-16 2020-11-16 Emergency X [facility] ERT [id number] [facility] 09:31:00 09:31:00 PACO cantu [facility] 2020-11-11 2020-11-11 Orders Doctor CUI 1.2.840.114 [id number] 00:00:00 00:00:00 Only UnassignedMONIQUE 350.1.13.10 [place] [facility] 4.2.7.2.686 [id number] 2020-11-11 2020-11-11 Orders Doctor CUI 1.2.840.114 [id number] [facility] 00:00:00 00:00:00 Only Unassigned, MONIQUE 350.1.13.10 ity of [place] [facility] 4.2.7.2.686 Jeff as [id number] [address] 2020-11-07 2020-11-07 [facility] [id number] 00:00:00 00:00:00 Angi Lott 350.1.13.10 [place] 4.2.7.2.686 Professio [id number] [address] 2020-11-07 2020-11-07 Telephone [facility] [id number] [facility] 00:00:00 00:00:00 Angi Lott 350.1.13.10 ity of [place] Profess[place] [id number] Nv dic[address] 2020-10-30 2020-10-30 Orders Doctor BASILIA 1.2.840.114 [id number] 00:00:00 00:00:00 Only Unassigned, MONIQUE 350.1.13.10 [place] [facility] 4.2.7.2.686 [id number] [facility] 2020-10-30 2020-10-30 Orders Doctor BASILIA 1.2.840.114 [id number] [facility] 00:00:00 00:00:00 Only Unassigned, MONIQUE 350.1.13.10 ity of [place] [facility] 4.2.7.2.686 Jeff as [id number] [address] 2020-09-26 2020-09-26 Telephone Eliot [facility] 1.2.840.114 [id number] 00:00:00 00:00:00 [facility] 350.1.13.10 CLINICS 4.2.7.2.686 [id number] [facility] 2020-09-26 2020-09-26 Telephone Eliot [facility] 1.2.840.114 [id number] [facility] 00:00:00 00:00:00 [facility] 350.1.13.10 i ty of CL[place] [id number] [address] 2020-09-01 2020-09-01 Orders Doctor BASILIA 1.2.840.114 [id number] 00:00:00 00:00:00 Only Unassigned, MONIQUE 350.1.13.10 [place] [facility] 4.2.7.2.686 [id number] 2020-09-01 2020-09-01 Orders Doctor BASILIA 1.2.840.114 [id number] Univers 00:00:00 00:00:00 Only Unassigned, MONIQUE 350.1.13.10 ity of [place] [facility] 4.2.7.2.686 Jeff as [id number] [facility] 009 Branch 2020-08-25 2020-08-25 Transition Tuan Peters 1.2.840.114 [id number] 00:00:00 00:00:00 of Care Ruchi Braswell 350.1.13.10 [place] 4.2.7.2.686 [id number] 2020-08-25 2020-08-25 Transition Tuan Peters 1.2.840.114 [id number] Univers 00:00:00 00:00:00 of Care Ruchi Braswell 350.1.13.10 it y of [place]2.[place] [id number] [facility] 403 [place] 2020-08-21 2020-08-23 [facility] Ayleen 1.2.840.114 [id number] 01:07:00 18:35:00 Encounter Kelly Monique 350.1.13.10 [facility] 4.2.7.2.686 [id number] [facility] 2020-08-21 2020-08-23 [facility] 1. 2.840.114 [id number] [facility] 01:07:00 18:35:00 Encounter Mukul Gallardo 350.1.13. 10 ity of [facility] 4.2.7.2.686 Jeff as [id number] [address] Results Test Description Test Time Test Comments Results Result Comments Source POCT GLUCOSE (AUTOMATED) 2020-12-17 15:43:35 Test Item Value Reference Range Interpretation Comme nts POCT GLU (test code = 5717853921) 129 mg/dL 70-110 H Lab Interpretation (test code = 75291-1) Abnormal [facility] (NA, K, CL, CO2, GLUCOSE, BUN, CREATININE, CA)2020-12-17 11:45:07 Test Item Value Reference Range Interpretation Comments NA (test code = 137 mmol/L 135-145 6108079875) K (test code = 3.5 mmol/L 3.5-5.0 9118165177) CL (test code = 103 mmol/L 98-108 0378924869) CO2 TOTAL (test code = 26 mmol/L 23-31 7558784540) AGAP (test code = 2-16 8346577005) BUN (test code = 11 mg/dL 7-23 3460076069) GLUCOSE (test code = 175 mg/dL 70-110 H 4813916342) CREATININE (test code = 0.62 mg/dL 0.60-1.25 9092107101) CALCIUM (test code = 9.0 mg/dL 8.6-10.6 1374161464) eGFR Calculation mL/min/1.73m2 (Non-) (test code = 7239146692) eGFR Calculation mL/min/1.73m2 () (test code = 3129797014) JAMES (test code = JAMES) Association of [...] tests). Lab Interpretation Abnormal (test code = 90597-3) [facility] WITH [id number] 11:07:27 Test Item Value Reference Range Interpretation [...] RDW-SD (test code = 45.2 fL 38.5-51.6 49876-0) RDW-CV (test code = 16.9 % 12.1-15.4 H 788-0) PLT (test code = See_Comment H [Automated 777-3) message] The sy stem which generated this result transmitted reference range : 150 - 328 10*3/ ?L. The reference r torito was not used to interpret this result as normal/abnormal . MPV (test code = 8.1 fL 9.8-13.0 L 35943-6) NRBC/100 WBC (test See_Comment [Automat ed code = 7553542613) message] The system which generated this result transmitted reference range : 0.0 - 10.0 /100 WBCs. The refer ence range was not u sed to interpret th is result as normal/abnormal . NRBC x10^3 (test code <0.01 See_Comment [Auto mated = 9316784715) message] The s ystem which generated this result transmitted reference range : 10*3/?L. The reference range was not used to interpret this result as normal/abnormal . GRAN MAT (NEUT) % 72.8 % (test code = 770-8) IMM GRAN % (test code 0.60 % = 2249467770) LYMPH % (test code = 18.4 % 736-9) MONO % (test code = 5.7 % 5905-5) EOS % (test code = 1.8 % 713-8) BASO % (test code = 0.7 % 706-2) GRAN MAT x10^3(ANC) 8.23 10*3/uL 1.99-6.95 H (test code = 9508380111) IMM GRAN x10^3 (test 0.07 10*3/uL 0.00-0.06 H code = 9824997617) LYMPH x10^3 (test code 2.08 10*3/uL 1.09-3.23 = 731-0) MONO x10^3 (test code 0.65 10*3/uL 0.36-1.02 = 742-7) EOS x10^3 (test code = 0.20 10*3/uL 0.06-0.53 711-2) BASO x10^3 (test code 0.08 10*3/uL 0.01-0.09 = 704-7) Lab Interpretation Abnormal (test code = 96876-9) [facility]2020-12-17 06:03:38 Test Item Value Reference Range Interpretation Comments POCT GLU (test code = 9932299034) 75 mg/dL 70-110 Lab Interpretation (test code = Normal 54461-2) [facility] B6, [id number] 00:01:00 Test Item Value Reference Range Interpretation Comments VIT B6 (test code = 13.1 nmol/L 20.0-125.0 L INTERPRE TIVE 78787-2) INFORMATION: Vi tamin B6 (Pyridoxal 5-Phosphate) Pyridoxal [...] intended for cl inical purposes.Perfor med By: Nulogy[address] [place] [id number] Director: Namrata Klein MD Lab Interpretation Abnormal (test code = 65361-1) [facility] TIBIA FIBULA 2 VW [id number] 23:57:09 Tricompartmental knee joint osteoarthrosis.XR TIBIA FIBULA [...] Interpretation Comments POCT GLU (test code = 6234050325) 114 mg/dL 70-110 H Lab Interpretation (test code = Abnormal 22545-9) [facility] GLUCOSE (AUTOMATED)2020-12-16 20:12:00 Test Item Value Reference Range Interpretation Comments POCT GLU (test code = 9098990536) 105 mg/dL 70-110 Lab Interpretation (test code = Normal 32279-9) [facility] GLUCOSE (AUTOMATED)2020-12-16 14:44:00 Test Item Value Reference Range Interpretation Comments POCT GLU (test code = 1970600755) 153 mg/dL 70-110 H Lab Interpretation (test code = Abnormal 74045-0) [facility] METABOLIC PANEL (NA, K, CL, CO2, GLUCOSE, BUN, CREATININE, CA)2020-12-16 14:23:00 Test Item Value Reference Range Interpretation Comments NA (test code = 138 mmol/L 135-145 0055987642) K (test code = 3.4 mmol/L 3.5-5.0 L 0685989294) CL (test code = 100 mmol/L 98-108 3978185157) CO2 TOTAL (test code = 31 mmol/L 23-31 8864767482) AGAP (test code = 2-16 0884628021) BUN (test code = 11 mg/dL 7-23 1504241111) GLUCOSE (test code = 162 mg/dL 70-110 H 8948020570) CREATININE (test code = 0.64 mg/dL 0.60-1.25 [id number]) CALCIUM (test code = 8.9 mg/dL 8.6-10.6 5694698583) eGFR Calculation mL/min/1.73m2 (Non-) (test code = 4919305376) eGFR Calculation mL/min/1.73m2 () (test code = 9802649004) JAMES (test code = JAMES) Association of [...] tests). Lab Interpretation Abnormal (test code = 60771-7) [facility] WITH [id number] 14:05:00 Test Item Value Reference Range Interpretation [...] RDW-SD (test code = 45.4 fL 38.5-51.6 96998-1) RDW-CV (test code = 17.0 % 12.1-15.4 H 788-0) PLT (test code = See_Comment H [Automated 777-3) message] The sy stem which generated this result transmitted reference range : 150 - 328 10*3/ ?L. The reference r torito was not used to interpret this result as normal/abnormal . MPV (test code = 8.0 fL 9.8-13.0 L 81955-2) NRBC/100 WBC (test See_Comment [Automat ed code = 9923375917) message] The system which generated this result transmitted reference range : 0.0 - 10.0 /100 WBCs. The refer ence range was not u sed to interpret th is result as normal/abnormal . NRBC x10^3 (test code <0.01 See_Comment [Auto mated = 6917881162) message] The s ystem which generated this result transmitted reference range : 10*3/?L. The reference range was not used to interpret this result as normal/abnormal . GRAN MAT (NEUT) % 70.0 % (test code = 770-8) IMM GRAN % (test code 0.70 % = 9028768095) LYMPH % (test code = 20.5 % 736-9) MONO % (test code = 7.1 % 5905-5) EOS % (test code = 1.0 % 713-8) BASO % (test code = 0.7 % 706-2) GRAN MAT x10^3(ANC) 9.44 10*3/uL 1.99-6.95 H (test code = 6290325398) IMM GRAN x10^3 (test 0.09 10*3/uL 0.00-0.06 H code = 6337676775) LYMPH x10^3 (test code 2.76 10*3/uL 1.09-3.23 = 731-0) MONO x10^3 (test code 0.96 10*3/uL 0.36-1.02 = 742-7) EOS x10^3 (test code = 0.13 10*3/uL 0.06-0.53 711-2) BASO x10^3 (test code 0.10 10*3/uL 0.01-0.09 H = 704-7) Lab Interpretation Abnormal (test code = 00702-7) [facility] # [id number] 13:01:00 Test Item Value Reference Range Interpretation Comments Blood Culture-Aerobic No organisms No growth Previo us (test code = 71275-3) isolated prelim inary verified result was Culture In Progress on 12/11/2020 at 100 1 CSTPrevious preliminary verified result was No growth a t 24 hours on 12/12/2020 at 070 1 CSTPrevious preliminary verified result was No growth a t 48 hours on 12/13/2020 at 070 1 CSTPrevious preliminary verified result was No growth a t 72 hours on 12/14/2020 at 070 1 [employer] Blood No organisms No growth Previous Culture-Anaerobic isolated preliminar y (test code = 55263-1) verifi ed result was Culture In Progress on 12/11/2020 at 100 1 CSTPrevious preliminary verified result was No growth a t 24 hours on 12/12/2020 at 070 1 CSTPrevious preliminary verified result was No growth a t 48 hours on 12/13/2020 at 070 1 CSTPrevious preliminary verified result was No growth a t 72 hours on 12/14/2020 at 070 1 [employer] Lab Interpretation Normal (test code = 07542-5) [facility] Culture - Peripheral # [id number] 13:01:00 Test Item Value Reference Range Interpretation Comments Blood Culture-Aerobic No organisms No growth Previo us (test code = 15328-8) isolated prelim inary verified result was Culture In Progress on 12/11/2020 at 100 1 CSTPrevious preliminary verified result was No growth a t 24 hours on 12/12/2020 at 070 1 CSTPrevious preliminary verified result was No growth a t 48 hours on 12/13/2020 at 070 1 CSTPrevious preliminary verified result was No growth a t 72 hours on 12/14/2020 at 070 1 [employer] Blood No organisms No growth Previous Culture-Anaerobic isolated preliminar y (test code = 63929-8) verifi ed result was Culture In Progress on 12/11/2020 at 100 1 CSTPrevious preliminary verified result was No growth a t 24 hours on 12/12/2020 at 070 1 CSTPrevious preliminary verified result was No growth a t 48 hours on 12/13/2020 at 070 1 CSTPrevious preliminary verified result was No growth a t 72 hours on 12/14/2020 at 070 1 [employer] Lab Interpretation Normal (test code = 40308-7) [facility] GLUCOSE (AUTOMATED)2020-12-16 04:01:00 Test Item Value Reference Range Interpretation Comments POCT GLU (test code = 1700042881) 156 mg/dL 70-110 H Lab Interpretation (test code = Abnormal 58617-3) [facility]2020-12-16 00:24:00 Test Item Value Reference Range Interpretation Comments POCT GLU (test code = 0689568300) 115 mg/dL 70-110 H Lab Interpretation (test code = Abnormal 32472-5) [facility] CHEST PULMONARY [id number] 23:34:55No pulmonary emboli. No interval change in [...] stableappearance of intra and extrahepatic biliary ductal dilatation.[facility] GLUCOSE (AUTOMATED)2020-12-15 19:28:00 Test Item Value Reference Range Interpretation Comments POCT GLU (test code = 3360798180) 140 mg/dL 70-110 H Lab Interpretation (test code = Abnormal 89838-3) [facility]2021-[facility]-05 15:26:00 Test Item Value Reference Range Interpretation Comments MAGNESIUM (test code = 5615103442) 2.2 mg/dL 1.7-2.4 Lab Interpretation (test code = Normal 48385-6) [facility] GLUCOSE (AUTOMATED)2020-12-15 15:15:00 Test Item Value Reference Range Interpretation Comments POCT GLU (test code = 8149174893) 181 mg/dL 70-110 H Lab Interpretation (test code = Abnormal 07085-6) [facility] METABOLIC PANEL (NA, K, CL, CO2, GLUCOSE, BUN, CREATININE, CA)2020-12-15 13:07:00 Test Item Value Reference Range Interpretation Comments NA (test code = 136 mmol/L 135-145 0812145077) K (test code = 3.6 mmol/L 3.5-5.0 4061103415) CL (test code = 96 mmol/L 98-108 L 0185850362) CO2 TOTAL (test code = 29 mmol/L 23-31 4208457080) AGAP (test code = 2-16 5460571563) BUN (test code = 12 mg/dL 7-23 6503427295) GLUCOSE (test code = 183 mg/dL 70-110 H 1874818720) CREATININE (test code = 0.70 mg/dL 0.60-1.25 7007464678) CALCIUM (test code = 9.2 mg/dL 8.6-10.6 9598572142) eGFR Calculation mL/min/1.73m2 (Non-) (test code = 5476354654) eGFR Calculation mL/min/1.73m2 () (test code = 8491060018) JAMES (test code = JAMES) Association of [...] tests). Lab Interpretation Abnormal (test code = 18299-1) [facility] WITH [id number] 12:32:00 Test Item Value Reference Range Interpretation Comments WBC (test code = See_Comment H [Automated 1090-2) message] The system which generated this result transmit ronan reference range : 4.20 - 10.70 10*3/?L. The reference range was not used to interpret this result as normal/abnormal . RBC (test code = See_Comment H [Automated 019-8) message] The system which generated this result [...] RDW-SD (test code = 44.4 fL 38.5-51.6 03718-0) RDW-CV (test code = 17.7 % 12.1-15.4 H 788-0) PLT (test code = See_Comment H [Automated 777-3) message] The system which generated this result transmit ronan reference range : 150 - 328 10*3/ ?L. The reference range was not u sed to interpret th is result as normal/abnormal . MPV (test code = 8.1 fL 9.8-13.0 L 93815-9) NRBC/100 WBC (test See_Comment [Automat ed code = 7282733489) message] The system which generated this result transmit ronan reference range : 0.0 - 10.0 /100 WBCs. The reference range was not used to interpret this result as normal/abnormal . NRBC x10^3 (test code <0.01 See_Comment [Auto mated = 4873300823) message] The system which generated this result transmit ronan reference range : 10*3/?L. The reference range was not used to interpret this result as normal/abnormal . GRAN MAT (NEUT) % 74.5 % (test code = 770-8) IMM GRAN % (test code 0.70 % = 1506126408) LYMPH % (test code = 17.4 % 736-9) MONO % (test code = 6.8 % 5905-5) EOS % (test code = 0.2 % 713-8) BASO % (test code = 0.4 % 706-2) GRAN MAT x10^3(ANC) 11.99 10*3/uL 1.99-6.95 H (test code = 4150780563) IMM GRAN x10^3 (test 0.11 10*3/uL 0.00-0.06 H code = 9047170432) LYMPH x10^3 (test code 2.80 10*3/uL 1.09-3.23 = 731-0) MONO x10^3 (test code 1.10 10*3/uL 0.36-1.02 H = 742-7) EOS x10^3 (test code = 0.03 10*3/uL 0.06-0.53 L 711-2) BASO x10^3 (test code 0.06 10*3/uL 0.01-0.09 = 704-7) Lab Interpretation Abnormal (test code = 70436-3) [facility] GLUCOSE (AUTOMATED)2020-12-15 04:16:00 Test Item Value Reference Range Interpretation Comments POCT GLU (test code = 4250579918) 200 mg/dL 70-110 H Lab Interpretation (test code = Abnormal 22554-2) [facility] CenterVITAMIN B1 (THIAMINE), WHOLE [id number] 00:30:00 Test Item Value Reference Range Interpretation Comments Vitamin B1, Whole 136 nmol/L 70-180 INTERPRETI VE INFORMATION: Blood (test code = Vitamin B 1, Whole Blood 04899-4) This assay júnior ures the concentration o [...] clinical purposes.Perfor med By: [facility] [address] [place], [place] [address]S aboratory Director: Namrata Klein MD [facility] GLUCOSE (AUTOMATED)2020-12-14 23:35:00 Test Item Value Reference Range Interpretation Comments POCT GLU (test code = 4628291251) 151 mg/dL 70-110 H Lab Interpretation (test code = Abnormal 32635-2) [facility] GLUCOSE (AUTOMATED)2020-12-14 19:19:00 Test Item Value Reference Range Interpretation Comments POCT GLU (test code = 8330278078) 193 mg/dL 70-110 H Lab Interpretation (test code = Abnormal 25807-9) [facility] GLUCOSE (AUTOMATED)2020-12-14 15:22:00 Test Item Value Reference Range Interpretation Comments POCT GLU (test code = 1474049876) 221 mg/dL 70-110 H Lab Interpretation (test code = Abnormal 91462-1) [facility] GLUCOSE (AUTOMATED)2020-12-14 02:37:00 Test Item Value Reference Range Interpretation Comments POCT GLU (test code = 8413013629) 210 mg/dL 70-110 H Lab Interpretation (test code = Abnormal 97850-8) [facility] GLUCOSE (AUTOMATED)2020-12-13 23:33:00 Test Item Value Reference Range Interpretation Comments POCT GLU (test code = 7892611787) 182 mg/dL 70-110 H Lab Interpretation (test code = Abnormal 26820-3) [facility] GLUCOSE (AUTOMATED)2020-12-13 18:09:00 Test Item Value Reference Range Interpretation Comments POCT GLU (test code = 1948329769) 150 mg/dL 70-110 H Lab Interpretation (test code = Abnormal 90686-3) [facility] METABOLIC PANEL (NA, K, CL, CO2, GLUCOSE, BUN, CREATININE, CA)2020-12-13 16:27:00 Test Item Value Reference Range Interpretation Comments NA (test code = 136 mmol/L 135-145 2456415392) K (test code = 3.7 mmol/L 3.5-5.0 0741399609) CL (test code = 96 mmol/L 98-108 L 7297855038) CO2 TOTAL (test code = 29 mmol/L 23-31 1203587752) AGAP (test code = 2-16 7785061500) BUN (test code = 6 mg/dL 7-23 L 2348755973) GLUCOSE (test code = 212 mg/dL 70-110 H 8012436124) CREATININE (test code = 0.61 mg/dL 0.60-1.25 7930062880) CALCIUM (test code = 9.5 mg/dL 8.6-10.6 5864916136) eGFR Calculation mL/min/1.73m2 (Non-) (test code = 5900621794) eGFR Calculation mL/min/1.73m2 () (test code = 1718261990) JAMES (test code = JAMES) Association of [...] tests). Lab Interpretation Abnormal (test code = 29574-4) [facility] WITH [id number] 16:10:00 Test Item Value Reference Range Interpretation Comments WBC (test code = See_Comment H [Automated 9090-2) message] The sy stem which generated this result transmitted reference range : 4.20 - 10.70 10*3/?L. The reference range was not used to interpret this result as normal/abnormal . RBC (test code = See_Comment H [Automated 649-8) message] The sy stem which generated this [...] RDW-SD (test code = 43.3 fL 38.5-51.6 41673-9) RDW-CV (test code = 16.2 % 12.1-15.4 H 788-0) PLT (test code = See_Comment H [Automated 777-3) message] The sy stem which generated this result transmitted reference range : 150 - 328 10*3/ ?L. The reference r torito was not used to interpret this result as normal/abnormal . MPV (test code = 8.2 fL 9.8-13.0 L 21368-6) NRBC/100 WBC (test See_Comment [Automat ed code = 0690670398) message] The system which generated this result transmitted reference range : 0.0 - 10.0 /100 WBCs. The refer ence range was not u sed to interpret th is result as normal/abnormal . NRBC x10^3 (test code <0.01 See_Comment [Auto mated = 3729840126) message] The s ystem which generated this result transmitted reference range : 10*3/?L. The reference range was not used to interpret this result as normal/abnormal . GRAN MAT (NEUT) % 86.2 % (test code = 770-8) IMM GRAN % (test code 0.70 % = 0926358344) LYMPH % (test code = 10.2 % 736-9) MONO % (test code = 2.5 % 5905-5) EOS % (test code = 0.1 % 713-8) BASO % (test code = 0.3 % 706-2) GRAN MAT x10^3(ANC) 9.61 10*3/uL 1.99-6.95 H (test code = 4173964783) IMM GRAN x10^3 (test 0.08 10*3/uL 0.00-0.06 H code = 5796486039) LYMPH x10^3 (test code 1.14 10*3/uL 1.09-3.23 = 731-0) MONO x10^3 (test code 0.28 10*3/uL 0.36-1.02 L = 742-7) EOS x10^3 (test code = <0.03 0.06-0.53 L 711-2) BASO x10^3 (test code 0.03 10*3/uL 0.01-0.09 = 704-7) Lab Interpretation Abnormal (test code = 34814-9) [facility]2020-12-13 14:16:00 Test Item Value Reference Range Interpretation Comments POCT GLU (test code = 5560179296) 236 mg/dL 70-110 H Lab Interpretation (test code = Abnormal 88796-6) [facility] CenterLAB ONLY COVID [id number] 04:58:00COVID DMT InterpretationInterpretation/Recommendations: Molecular NAAT Tests for [...] COVID-19 testing the patient has had at [facility], including molecular NAAT testing (more commonly known as PCR testing and Rapid ID Now testing) and antibody testing. It does not take into account any testingthat a patient has had outside of the [facility] medical record. [facility] LABORATORY SERVICESCOVID NllmwsrAJLG-RtJ-9 Rapid ID NOW (no units) ? ? Date ? Value ? 12/11/2020 ? Not Detected ? ? ? 11/16/2020 ? Not Detected ? ? ? 08/21/2020 ? Not Detected ? [facility] 2020-12-13 03:11:00 Test Item Value Reference Range Interpretation Comments POCT GLU (test code = 1864067099) 171 mg/dL 70-110 H Lab Interpretation (test code = Abnormal 27168-3) [facility] GLUCOSE (AUTOMATED)2020-12-13 00:00:00 Test Item Value Reference Range Interpretation Comments POCT GLU (test code = 4718894068) 118 mg/dL 70-110 H Lab Interpretation (test code = Abnormal 91955-9) [facility] GLUCOSE (AUTOMATED)2020-12-12 20:29:00 Test Item Value Reference Range Interpretation Comments POCT GLU (test code = 8736309661) 173 mg/dL 70-110 H Lab Interpretation (test code = Abnormal 72146-0) [facility] CenterUS ABDOMEN [id number] 19:56:17 1. ?Hepatic steatosis. However, limited evaluation [...] main portal veinwasevaluated with color Doppler imaging. Balance Recesser images were obtainedfor the record. COMPARISON: Ultrasound [...] normal where visualized. SPLEEN:No images were obtained. [facility], Radiant Results Inft User - 12/12/2020 1:57 PM CSTEXAM: US ABDOMEN LIMITEDHISTORY: 70 years-old male with RUQ ultrasound to assess for common bileduct dilation .TECHNIQUE: Limited abdominal ultrasound focused on the liver, biliarysystem, pancreas, and spleen was performed. The main portal vein wasevaluated with color Doppler imaging. Balance Recesser images wereobtainedfor the record.COMPARISON: Ultrasound abdomen 11/17/2028. [...] and agree with the abovereport.[facility] CenterPO[facility] (AUT[facility]ATED)2020-12-12 19:24:00 Test Item Value Reference Range Interpretation Comments POCT GLU (test code = 5966364129) 230 mg/dL 70-110 H Lab Interpretation (test code = Abnormal 67636-5) [facility] CenterXR CHEST 1 [id number] 15:16:46 Low lung volumes with mild perihilar [...] and agree with theabove report.[facility] CenterPO[facility]SE (AUTOMATED)2020-12-12 14:34:00 Test Item Value Reference Range Interpretation Comments POCT GLU (test code = 7628567129) 225 mg/dL 70-110 H Lab Interpretation (test code = Abnormal 70744-9) [facility] CenterURINE [id number] 13:28:00 Test Item Value Reference Range Interpretation Comments URINE CULTURE (test < 10,000 CFU/mL mixed code = 630-4) aerobic organisms - suggests endogenous microbial contamination [facility] CenterBasic Metabolic Panel (NA, K, CL, CO2, GLUCOSE, BUN, CREATININE, CA)2020-12-12 10:05:00 Test Item Value Reference Range Interpretation Comments NA (test code = 136 mmol/L 135-145 6883001876) K (test code = 3.5 mmol/L 3.5-5.0 1219567929) CL (test code = 100 mmol/L 98-108 1845265449) CO2 TOTAL (test code = 31 mmol/L 23-31 0218067750) AGAP (test code = 2-16 9407643328) BUN (test code = 7 mg/dL 7-23 1791220658) GLUCOSE (test code = 259 mg/dL 70-110 H 0401417484) CREATININE (test code = 0.63 mg/dL 0.60-1.25 3058223553) CALCIUM (test code = 8.5 mg/dL 8.6-10.6 L 5179835242) eGFR Calculation mL/min/1.73m2 (Non-) (test code = 8286326968) eGFR Calculation mL/min/1.73m2 () (test code = 4507591111) JAMES (test code = JAMES) Association of [...] tests). Lab Interpretation Abnormal (test code = 94399-7) [facility] CenterMagnesium [id number] 10:05:00 Test Item Value Reference Range Interpretation Comments MAGNESIUM (test code = 9560913168) 1.9 mg/dL 1.7-2.4 Lab Interpretation (test code = Normal 42109-4) [facility] with [id number] 09:48:00 Test Item Value Reference Range Interpretation Comments WBC (test code = See_Comment [Automated 1703-2) message] The sy stem which generated this result transmitted reference range : 4.20 - 10.70 10*3/?L. The reference range was not used to interpret this result as normal/abnormal . RBC (test code = See_Comment [Automated 416-3) message] The sy stem which generated this [...] RDW-SD (test code = 46.0 fL 38.5-51.6 11164-2) RDW-CV (test code = 16.1 % 12.1-15.4 H 788-0) PLT (test code = See_Comment H [Automated 777-3) message] The sy stem which generated this result transmitted reference range : 150 - 328 10*3/ ?L. The reference r torito was not used to interpret this result as normal/abnormal . MPV (test code = 8.6 fL 9.8-13.0 L 31908-5) NRBC/100 WBC (test See_Comment [Automat ed code = 9214188309) message] The system which generated this result transmitted reference range : 0.0 - 10.0 /100 WBCs. The refer ence range was not u sed to interpret th is result as normal/abnormal . NRBC x10^3 (test code <0.01 See_Comment [Auto mated = 6615226019) message] The s ystem which generated this result transmitted reference range : 10*3/?L. The reference range was not used to interpret this result as normal/abnormal . GRAN MAT (NEUT) % 70.2 % (test code = 770-8) IMM GRAN % (test code 0.30 % = 4200162408) LYMPH % (test code = 18.8 % 736-9) MONO % (test code = 5.0 % 5905-5) EOS % (test code = 5.2 % 713-8) BASO % (test code = 0.5 % 706-2) GRAN MAT x10^3(ANC) 6.05 10*3/uL 1.99-6.95 (test code = 2898059652) IMM GRAN x10^3 (test 0.03 10*3/uL 0.00-0.06 code = 6226754860) LYMPH x10^3 (test code 1.62 10*3/uL 1.09-3.23 = 731-0) MONO x10^3 (test code 0.43 10*3/uL 0.36-1.02 = 742-7) EOS x10^3 (test code = 0.45 10*3/uL 0.06-0.53 711-2) BASO x10^3 (test code 0.04 10*3/uL 0.01-0.09 = 704-7) Lab Interpretation Abnormal (test code = 32310-2) [facility] CenterP[facility]Y GLUCOSE (AUTOMATED)2020-12-12 03:42:00 Test Item Value Reference Range Interpretation Comments POCT GLU (test code = 196 mg/dL 70-110 H Notifi ed Provider 8758500803) Lab Interpretation (test Abnormal code = 59771-2) [facility] CenterFOLATE2021-03-02 02:24:00 Test Item Value Reference Range Interpretation Comments FOLATE SER (test code = 3802693725) 5.8 ng/mL 3.0-20.0 Lab Interpretation (test code = Normal 40812-0) [facility] CenterVITAMIN B12, [id number] 00:55:00 Test Item Value Reference Range Interpretation Comments VIT B12 (test code = 844 pg/mL 240-930 7651923674) JAMES (test code = JAMES) Biotin has been reported to cause a positive bias, interpret results relative to patient's use of biotin. Lab Interpretation (test Normal code = 68678-5) [facility] GLUCOSE (AUTOMATED)2020-12-12 00:14:00 Test Item Value Reference Range Interpretation Comments POCT GLU (test code = 6260880368) 164 mg/dL 70-110 H Lab Interpretation (test code = Abnormal 12518-0) [facility] CenterCREATINE [id number] 23:42:00 Test Item Value Reference Range Interpretation Comments CK (test code = 6865375325) <20 33-194 L Lab Interpretation (test code = Abnormal 33841-0) [facility] CenterTHYROID STIMULATING [id number] 23:17:00 Test Item Value Reference Range Interpretation Comments TSH (test code = See_Comment Biotin has been 9019093768) reported to cau se a negative bias, interpret resul ts relative to johnny bills's use of biotin. [Automated mess age] The system [employer] generated this result transmitted ref erence range: 0.45 - 4 .70 mIU/L. The refe rence range was not u sed to interpret this result as normal/abnor mal. Lab Interpretation (test Normal code = 85018-2) [facility] CenterXR HIPS 3 VW [id number] 21:41:53No appreciable fracture lines. RL: 6200 ICAL [...] (test 0.13 ng/mL <0.07 H code = 7530940593) JAMES (test code = JAMES) INTERPRETATION OF [...] lung abscess/empyema. For further information please refer to:[email or web address] Lab Interpretation Abnormal (test code = 76640-7) [facility] CenterPOCT GLUCOSE (AUTOMATED)2020-12-11 19:07:00 Test Item Value Reference Range Interpretation Comments POCT GLU (test code = 3681203436) 274 mg/dL 70-110 H Lab Interpretation (test code = Abnormal 31549-3) [facility] CenterMAGNESIUM2021-03-01 18:31:00 Test Item Value Reference Range Interpretation Comments MAGNESIUM (test code = 9275290557) 1.9 mg/dL 1.7-2.4 Lab Interpretation (test code = Normal 17731-3) [facility] CenterFERRITIN [id number] 18:31:00 Test Item Value Reference Range Interpretation Comments FERRITIN (test code = 178.0 ng/mL 18.0-464.0 9569485230) JAMES (test code = JAMES) Biotin has been reported to cause a negative bias, interpret results relative to patient's use of biotin. Lab Interpretation (test Normal code = 62524-8) [facility] HEAD WO [id number] 14:36:47 No acute intracranial abnormality. Dilated ventricles [...] and agree with the abovereport.[facility] CenterURINALYSIS2021-03-01 14:28:00 Test Item Value Reference Range Interpretation Comments APPEARANCE (test code = Clear Clear 2764346818) COLOR (test code = Yellow Yellow 4236512369) PH (test code = 4.8-8.0 4575800474) SP GRAVITY (test code = 1.003-1.030 6945064570) GLU U QUAL (test code = 500 mg/dL Normal A 2367240245) BLOOD (test code = Negative Negative 0634437153) KETONES (test code = 5 mg/dL Negative A 9111421420) PROTEIN (test code = Negative Negative 2887-8) UROBILIN (test code = Normal Normal 1481727773) BILIRUBIN (test code = Negative Negative 6722835747) NITRITE (test code = Negative Negative 8289014706) LEUK RYAN (test code = Negative Negative 3133655816) RBC/HPF (test code = See_Comment [Autom ated message] 2464366648) The system [employer] generated this result transmit ronan reference range : 0 - 3 HPF. The refe rence range was not u sed to interpret th is result as normal/abnormal . WBC/HPF (test code = See_Comment [Autom ated message] 3556048695) The system [employer] generated this result transmit ronan reference range : 0 - 5 HPF. The refe rence range was not u sed to interpret th is result as normal/abnormal . BACTERIA (test code = Negative Negative 7345670181) MUCOUS (test code = Slight Negative LPF A 8289766403) SQ EPITH (test code = HPF 7454186131) Lab Interpretation (test Abnormal code = 85735-0) [facility] CenterCOVID-19 (ID NOW RAPID TESTING)2020-12-11 13:10:00 Test Item Value Reference Range Interpretation Comments SARS-CoV-2 Rapid ID NOW Not Detected Not Detected (test code = 63381-2) JAMES (test code = JAMES) ID NOW COVID-19 Assay is an isothermal nucleic acid amplification test intended for the qualitative detection of nucleic acid from SARS-CoV-2 viral RNA in nasopharyngeal (DIRECTOR OF [employer]ES) specimens. It is used under Emergency Use [...] indicated. Lab Interpretation Normal (test code = 81201-7) [facility]. METABOLIC PANEL (04808)2020-12-11 12:29:00 Test Item Value Reference Range Interpretation Comments NA (test code = 136 mmol/L 135-145 8999101349) K (test code = 3.5 mmol/L 3.5-5.0 4191168651) CL (test code = 95 mmol/L 98-108 L 7695062285) CO2 TOTAL (test code = 35 mmol/L 23-31 H 3432514602) AGAP (test code = 2-16 2883548760) BUN (test code = 9 mg/dL 7-23 7911772588) GLUCOSE (test code = 329 mg/dL 70-110 H 8888659597) CREATININE (test code = 0.72 mg/dL 0.60-1.25 6569953985) TOTAL BILI (test code = 0.6 mg/dL 0.1-1.0 7349187344) CALCIUM (test code = 9.0 mg/dL 8.6-10.6 6570549901) T PROTEIN (test code = 6.8 g/dL 6.3-8.2 8736771968) ALBUMIN (test code = 3.8 g/dL 3.5-5.0 2042155965) ALK PHOS (test code = 288 U/L 34-122 H 3627579575) ALTv (test code = 46 U/L 5-50 1742-6) AST(SGOT) (test code = 38 U/L 13-40 9181769372) eGFR Calculation mL/min/1.73m2 (Non-) (test code = 4377210489) eGFR Calculation mL/min/1.73m2 () (test code = 0220920421) JAMES (test code = JAMES) Association of [...] tests). Lab Interpretation Abnormal (test code = 66917-1) [facility] Center[facility] Whole [id number] 12:23:00 Test Item Value Reference Range Interpretation Comments LACTIC ACID (test code = 2.09 mmol/L 0.50-2.20 2108580738) Lab Interpretation (test code = Normal 48519-3) [facility] WITH [id number] 12:17:00 Test Item Value Reference Range Interpretation Comments WBC (test code = See_Comment H [Automated 2490-2) message] The sy stem which generated this result transmitted reference range : 4.20 - 10.70 10*3/?L. The reference range was not used to interpret this result as normal/abnormal . RBC (test code = See_Comment [Automated 939-8) message] The sy stem which [...] RDW-SD (test code = 44.9 fL 38.5-51.6 54635-4) RDW-CV (test code = 15.9 % 12.1-15.4 H 788-0) PLT (test code = See_Comment H [Automated 777-3) message] The sy stem which generated this result transmitted reference range : 150 - 328 10*3/ ?L. The reference r torito was not used to interpret this result as normal/abnormal . MPV (test code = 8.3 fL 9.8-13.0 L 61904-5) NRBC/100 WBC (test See_Comment [Automat ed code = 7039383736) message] The system which generated this result transmitted reference range : 0.0 - 10.0 /100 WBCs. The refer ence range was not u sed to interpret th is result as normal/abnormal . NRBC x10^3 (test code <0.01 See_Comment [Auto mated = 5068442605) message] The s ystem which generated this result transmitted reference range : 10*3/?L. The reference range was not used to interpret this result as normal/abnormal . GRAN MAT (NEUT) % 77.9 % (test code = 770-8) IMM GRAN % (test code 0.50 % = 2402629294) LYMPH % (test code = 12.2 % 736-9) MONO % (test code = 5.2 % 5905-5) EOS % (test code = 3.7 % 713-8) BASO % (test code = 0.5 % 706-2) GRAN MAT x10^3(ANC) 9.57 10*3/uL 1.99-6.95 H (test code = 4184047906) IMM GRAN x10^3 (test 0.06 10*3/uL 0.00-0.06 code = 7987335293) LYMPH x10^3 (test code 1.50 10*3/uL 1.09-3.23 = 731-0) MONO x10^3 (test code 0.64 10*3/uL 0.36-1.02 = 742-7) EOS x10^3 (test code = 0.46 10*3/uL 0.06-0.53 711-2) BASO x10^3 (test code 0.06 10*3/uL 0.01-0.09 = 704-7) Lab Interpretation Abnormal (test code = 96409-7) [facility] Center[facility] ONLY COVID [id number] 18:43:00COVID DMT InterpretationInterpretation/Recommendations: Molecular NAAT Test Results [...] a nasopharyngeal sample, there is approximately a viv-lf-ofnal chance that the patient was infected and [...] based upon aggregate data pooled from the [facility] medical recordincluding both current and prior COVID-19 related testing results for the following tests offered atour institution:A. Tests for the Identification of SARS-CoV-2 RNA:SARS-CoV-2 PCR assays including [employer] Aptima, [employer] Fusion, Barrett RealTime, and [employer] Xpert Xpress. SARS-CoV-2 Rapid ID NOW by the ID NOW assay. ? B. Tests for the Identification of SARS-CoV-2 Antibodies: Chemiluminescent immunoassays including Access SARS-CoV-2 IgM (DXI 600), VITROS Wdau-CQNF-ZhN-2 IgG (Vitros 5600 and Vitros 3600), and Barrett SARS-CoV-2 IgG (SADDLE STITCH OPERATOR I System). These interpretation comments assume that only the above testing was utilized and that the approved acceptable specimen type(s) were used for a given test. These interpretations are autopopulated into [employer] based on computerized algorithms matching an interpretation code number to the patient's set of test results. While a clinical pathologist evaluates the combinations for clinical accuracy, clinical correlation is recommended as it may not take into account very remote prior testing. Furthermore, it does not consider testing a patient may have had outside of the [facility] system. Additionally, it should be noted that the computerized algorithm treats the results for PCR testing and Rapid ID NOW testing (also PCR) synonymously, and thus, refers to both testing methodologies as PCR tests. Given that the sensitivity of [facility]'s Rapid ID NOW testing platform is analogous [...] pathogen panel may be beneficialin this setting. [facility] LABORATORY SERVICESCOVID FqfvwcaBSHN-WeH-1 Rapid ID NOW (no units) ? ? Date ? Value ? 08/21/2020 ? Not Detected ? [facility]Un[facility]2020-08-23 18:25:00 Test Item Value Reference Range Interpretation Comments POCT GLU (test code = 8745682861) 297 mg/dL 70-110 H Lab Interpretation (test code = Abnormal 72069-6) [facility] GLUCOSE (AUTOMATED)2020-08-23 14:25:00 Test Item Value Reference Range Interpretation Comments POCT GLU (test code = 4368462979) 181 mg/dL 70-110 H Lab Interpretation (test code = Abnormal 93634-6) [facility] Metabolic Panel (NA, K, CL, CO2, GLUCOSE, BUN, CREATININE, CA)2020-08-23 11:45:00 Test Item Value Reference Range Interpretation Comments NA (test code = 132 mmol/L 135-145 L 4912335888) K (test code = 4.0 mmol/L 3.5-5 1540138987) CL (test code = 96 mmol/L 98-108 L 5626102146) CO2 TOTAL (test code = 33 mmol/L 23-31 H 8381058615) AGAP (test code = 2-16 1891521658) BUN (test code = 9 mg/dL 7-23 3777219437) GLUCOSE (test code = 176 mg/dL 70-110 H 0374739920) CREATININE (test code = 0.66 mg/dL 0.6-1.25 1413156803) CALCIUM (test code = 8.5 mg/dL 8.6-10.6 L 1050043073) eGFR Calculation mL/min/1.73m2 (Non-) (test code = 4715705610) eGFR Calculation mL/min/1.73m2 () (test code = 7941633342) JAMES (test code = JAMES) Association of [...] tests). Lab Interpretation Abnormal (test code = 61128-2) [facility] CenterMagnesium [id number] 11:45:00 Test Item Value Reference Range Interpretation Comments MAGNESIUM (test code = 3780452518) 2.0 mg/dL 1.7-2.4 Lab Interpretation (test code = Normal 48079-3) [facility] with Nvkbiuvdxgbf0367-61-87 11:38:00 Test Item Value Reference Range Interpretation [...] RDW-SD (test code = 41.8 fL 38.5-51.6 68614-1) RDW-CV (test code = 14.3 % 12.1-15.4 788-0) PLT (test code = See_Comment H [Automated 777-3) message] The sy stem which generated this result transmitted reference range : 150 - 328 10*3/ ?L. The reference r torito was not used to interpret this result as normal/abnormal . MPV (test code = 8.0 fL 9.8-13 L 75855-8) NRBC/100 WBC (test See_Comment [Automat ed code = 2159500111) message] The system which generated this result transmitted reference range : 0.0 - 10.0 /100 WBCs. The refer ence range was not u sed to interpret th is result as normal/abnormal . NRBC x10^3 (test code <0.01 See_Comment [Auto mated = 0418905157) message] The s ystem which generated this result transmitted reference range : 10*3/?L. The reference range was not used to interpret this result as normal/abnormal . GRAN MAT (NEUT) % 61.5 % (test code = 770-8) IMM GRAN % (test code 2.00 % = 1619252884) LYMPH % (test code = 25.5 % 736-9) MONO % (test code = 6.3 % 5905-5) EOS % (test code = 3.7 % 713-8) BASO % (test code = 1.0 % 706-2) GRAN MAT x10^3(ANC) 5.29 10*3/uL 1.99-6.95 (test code = 8766593764) IMM GRAN x10^3 (test 0.17 10*3/uL 0-0.06 H code = 6153318311) LYMPH x10^3 (test code 2.19 10*3/uL 1.09-3.23 = 731-0) MONO x10^3 (test code 0.54 10*3/uL 0.36-1.02 = 742-7) EOS x10^3 (test code = 0.32 10*3/uL 0.06-0.53 711-2) BASO x10^3 (test code 0.09 10*3/uL 0.01-0.09 = 704-7) Lab Interpretation Abnormal (test code = 35073-1) [facility] GLUCOSE (AUTOMATED)2020-08-23 10:22:00 Test Item Value Reference Range Interpretation Comments POCT GLU (test code = 9553382268) 164 mg/dL 70-110 H Lab Interpretation (test code = Abnormal 38332-3) [facility] GLUCOSE (AUTOMATED)2020-08-23 05:56:00 Test Item Value Reference Range Interpretation Comments POCT GLU (test code = 6918211118) 242 mg/dL 70-110 H Lab Interpretation (test code = Abnormal 64300-7) [facility] GLUCOSE (AUTOMATED)2020-08-23 03:02:00 Test Item Value Reference Range Interpretation Comments POCT GLU (test code = 3408075994) 210 mg/dL 70-110 H Lab Interpretation (test code = Abnormal 74017-5) [facility] GLUCOSE (AUTOMATED)2020-08-22 23:40:00 Test Item Value Reference Range Interpretation Comments POCT GLU (test code = 4147564914) 267 mg/dL 70-110 H Lab Interpretation (test code = Abnormal 63927-9) [facility] GLUCOSE (AUTOMATED)2020-08-22 19:08:00 Test Item Value Reference Range Interpretation Comments POCT GLU (test code = 5761079993) 191 mg/dL 70-110 H Lab Interpretation (test code = Abnormal 31887-4) [facility] GLUCOSE (AUTOMATED)2020-08-22 13:50:00 Test Item Value Reference Range Interpretation Comments POCT GLU (test code = 3207296020) 174 mg/dL 70-110 H Lab Interpretation (test code = Abnormal 95016-6) [facility] CenterURINE [id number] 12:59:00 Test Item Value Reference Range Interpretation Comments URINE CULTURE (test No aerobic growth (< code = 630-4) 1000 CFU/mL) [facility] CenterCBC with Oziodwzvmrdc0831-14-70 11:28:00 Test Item Value Reference Range Interpretation [...] RDW-SD (test code = 42.5 fL 38.5-51.6 32970-7) RDW-CV (test code = 14.5 % 12.1-15.4 788-0) PLT (test code = See_Comment H [Automated 777-3) message] The sy stem which generated this result transmitted reference range : 150 - 328 10*3/ ?L. The reference r torito was not used to interpret this result as normal/abnormal . MPV (test code = 8.0 fL 9.8-13 L 77439-9) NRBC/100 WBC (test See_Comment [Automat ed code = 3037653776) message] The system which generated this result transmitted reference range : 0.0 - 10.0 /100 WBCs. The refer ence range was not u sed to interpret th is result as normal/abnormal . NRBC x10^3 (test code <0.01 See_Comment [Auto mated = 0787283002) message] The s ystem which generated this result transmitted reference range : 10*3/?L. The reference range was not used to interpret this result as normal/abnormal . GRAN MAT (NEUT) % 69.1 % (test code = 770-8) IMM GRAN % (test code 2.20 % = 5705120994) LYMPH % (test code = 20.9 % 736-9) MONO % (test code = 5.8 % 5905-5) EOS % (test code = 1.0 % 713-8) BASO % (test code = 1.0 % 706-2) GRAN MAT x10^3(ANC) 6.51 10*3/uL 1.99-6.95 (test code = 2099565980) IMM GRAN x10^3 (test 0.21 10*3/uL 0-0.06 H code = 8779658720) LYMPH x10^3 (test code 1.97 10*3/uL 1.09-3.23 = 731-0) MONO x10^3 (test code 0.55 10*3/uL 0.36-1.02 = 742-7) EOS x10^3 (test code = 0.09 10*3/uL 0.06-0.53 711-2) BASO x10^3 (test code 0.09 10*3/uL 0.01-0.09 = 704-7) BASO STIPPLING (test Present A code = 703-9) BANDS (test code = Increased A 3564601316) TOXIC CHANGES (test Present A code = 803-7) Lab Interpretation Abnormal (test code = 14110-7) [facility] Metabolic Panel (NA, K, CL, CO2, GLUCOSE, BUN, CREATININE, CA)2020-08-22 11:12:00 Test Item Value Reference Range Interpretation Comments NA (test code = 135 mmol/L 135-145 1968645360) K (test code = 3.6 mmol/L 3.5-5 7193848032) CL (test code = 99 mmol/L 98-108 4218967835) CO2 TOTAL (test code = 31 mmol/L 23-31 7252502882) AGAP (test code = 2-16 8423024912) BUN (test code = 9 mg/dL 7-23 2292910672) GLUCOSE (test code = 198 mg/dL 70-110 H 8469723119) CREATININE (test code = 0.72 mg/dL 0.6-1.25 3551878248) CALCIUM (test code = 8.3 mg/dL 8.6-10.6 L 0130871809) eGFR Calculation mL/min/1.73m2 (Non-) (test code = 1537798181) eGFR Calculation mL/min/1.73m2 () (test code = 9845634610) JAMES (test code = JAMES) Association of [...] tests). Lab Interpretation Abnormal (test code = 47096-1) [facility] CenterMagnesium [id number] 11:12:00 Test Item Value Reference Range Interpretation Comments MAGNESIUM (test code = 5608736148) 2.0 mg/dL 1.7-2.4 Lab Interpretation (test code = Normal 77515-8) [facility] CenterLipid Panel (Total Cholesterol, Triglycerides, HDL) - [id number] 11:12:00 Test Item Value Reference Range Interpretation Comments CHOL (test code = 155 mg/dL 120-200 7015631472) HDL (test code = 42 mg/dL >40 7434159082) HDLC RATIO (test code = See_Comment [Au tomated message] 1986096963) The system [employer] generated this result transmit ronan reference range : <=5.0. The refe rence range was not u sed to interpret th is result as normal/abnormal . TRIG (test code = 186 mg/dL 30-170 H 9640128019) LDL CHOL (test code = 76 mg/dL See_Comment [Auto mated message] 42203-6) The system [employer] generated this result transmit ronan reference range : <=160. The refe rence range was not u sed to interpret th is result as normal/abnormal . VLDL (test code = 37 mg/dL 5-60 2127239585) Lab Interpretation (test Abnormal code = 88193-4) [facility] CenterHEPATIC FUNCTION PANEL (21314) (ALB,T.PRO,BILI T,BU/BC,ALT,AST,ALK PHOS)2020-08-22 11:12:00 Test Item Value Reference Range Interpretation Comments TOTAL BILI (test code = 6633325649) 0.6 mg/dL 0.1-1.1 BILI UNCON (test code = 2216346442) 0.2 mg/dL 0.1-1.1 BILI CONJ (test code = 7995724100) 0.0 mg/dL 0-0.3 T PROTEIN (test code = 7707462401) 6.0 g/dL 6.3-8.2 L ALBUMIN (test code = 3568821550) 2.8 g/dL 3.5-5 L ALK PHOS (test code = 1779756833) 222 U/L 34-122 H ALTv (test code = 1742-6) 27 U/L 5-50 AST(SGOT) (test code = 7022318119) 30 U/L 13-40 Lab Interpretation (test code = Abnormal 04614-7) [facility] GLUCOSE (AUTOMATED)2020-08-22 10:11:00 Test Item Value Reference Range Interpretation Comments POCT GLU (test code = 7438237413) 196 mg/dL 70-110 H Lab Interpretation (test code = Abnormal 53012-4) [facility] GLUCOSE (AUTOMATED)2020-08-22 07:15:00 Test Item Value Reference Range Interpretation Comments POCT GLU (test code = 5711831299) 183 mg/dL 70-110 H Lab Interpretation (test code = Abnormal 87954-1) [facility] GLUCOSE (AUTOMATED)2020-08-22 02:30:00 Test Item Value Reference Range Interpretation Comments POCT GLU (test code = 8695466513) 295 mg/dL 70-110 H Lab Interpretation (test code = Abnormal 45150-1) [facility] GLUCOSE (AUTOMATED)2020-08-21 23:46:00 Test Item Value Reference Range Interpretation Comments POCT GLU (test code = 2729071252) 258 mg/dL 70-110 H Lab Interpretation (test code = Abnormal 52634-0) [facility] CenterC-REACTIVE [id number] 18:50:00 Test Item Value Reference Range Interpretation Comments CRP (test code = 8673927920) 15.5 mg/dL <0.8 H Lab Interpretation (test code = Abnormal 29051-0) [facility] CenterPOCT GLUCOSE (AUTOMATED)2020-08-21 18:21:00 Test Item Value Reference Range Interpretation Comments POCT GLU (test code = 9483769840) 297 mg/dL 70-110 H Lab Interpretation (test code = Abnormal 96793-0) [facility] CenterETHANOL2020-11-09 16:24:00 Test Item Value Reference Range Interpretation Comments ALCOHOL (test code = <10 mg/dL 7947195448) JAMES (test code = Toxic Greater than or JAMES) equal to 80 mg/dL. NOTE: Whole blood values are approximately 10% to 15% lower than serum and plasma. [facility] CenterGAL/CLC ONLY - URINE DRUG (IMMUNOASSAY) - 4 ER [id number] 15:36:00 Test Item Value Reference Range Interpretation Comments AMPHET (test code = Negative Negative 5526948568) Cocaine Metabolite (test Negative Negative code = 7301216407) OPIATES (test code = Presumptive Positive Negative A 7554192625) THC (test code = Negative Negative 3410148862) JAMES (test code = JAMES) Urine Drug Cutoff Ranges Amphetamine: ? 1,000 ng/mLCocaine: ? 150 ng/mLOpiates: ? 300 ng/mLCannabinoids: ?50 ng/mL The results are to be used only for medical (i.e., treatment) purposes. Unconfirmed screening results must not be used for non-medical purposes (e.g., employment testing, legal testing). Lab Interpretation (test Abnormal code = 67780-1) [facility] ONLY - SYPHILIS [id number] 15:04:00 Test Item Value Reference Range Interpretation Comments Syphilis IgG/IgM (test Non-reactive Non-reactive code = 33311-7) JAMES (test code = JAMES) Non-reactive - No serologic evidence of T. pallidum infection. Cannot exclude incubating or early syphilis. Submit a second specimen in 2-4 weeks if syphilis is clinically suspected. Equivocal - Further testing to follow. Reactive - Further testing to follow. Lab Interpretation (test Normal code = 97553-1) [facility] CenterUrinalysis2020-11-09 14:52:00 Test Item Value Reference Range Interpretation Comments APPEARANCE (test code = Clear Clear 3223596965) COLOR (test code = Yellow Yellow 1914147000) PH (test code = 4.8-8.0 3212425328) SP GRAVITY (test code = 1.003-1.030 9368877265) GLU U QUAL (test code = 500 mg/dL Normal A 5988357858) BLOOD (test code = Negative Negative 2767457340) KETONES (test code = 20 mg/dL Negative A 6028016320) PROTEIN (test code = Negative Negative 2887-8) UROBILIN (test code = Normal Normal 0129820103) BILIRUBIN (test code = Negative Negative 3548251653) NITRITE (test code = Negative Negative 9691093136) LEUK RYAN (test code = Negative Negative 1560057843) RBC/HPF (test code = <1 See_Comment [Autom ated message] 9660123560) The system [employer] generated this result transmit ronan reference range : 0 - 3 HPF. The refe rence range was not u sed to interpret th is result as normal/abnormal . WBC/HPF (test code = See_Comment [Autom ated message] 7510916965) The system [employer] generated this result transmit ronan reference range : 0 - 5 HPF. The refe rence range was not u sed to interpret th is result as normal/abnormal . BACTERIA (test code = Negative Negative 5028098767) MUCOUS (test code = Slight Negative LPF A 0660523882) Lab Interpretation (test Abnormal code = 44950-6) [facility] CenterACTIVATED PARTIAL THRMPLAS [id number] 13:45:00 Test Item Value Reference Range Interpretation Comments APTT Patient (test code = See_Comment [ Automated message] 3173-2) The system [employer] generated this result transmitted ref erence range: 26 - 36 Seconds. The re ference range was not u sed to interpret this result as normal/abnor mal. Lab Interpretation (test Normal code = 59747-3) [facility] CenterPOCT GLUCOSE (AUTOMATED)2020-08-21 13:45:00 Test Item Value Reference Range Interpretation Comments POCT GLU (test code = 8027669145) 246 mg/dL 70-110 H Lab Interpretation (test code = Abnormal 36414-7) [facility] CenterHIV 1/2 AG-AB WITH [id number] 12:32:00 Test Item Value Reference Range Interpretation Comments HIV Negative Negative Semi-quantitative (test code = 93060-7) JAMES (test code = Non-reactive for HIV-1 JAMES) antigen and HIV-1/HIV-2 antibodies. ?No laboratory evidence of HIV infection. ?Repeat in 2-4 weeks if acute HIV infection is suspected. [facility] CenterCBC WITH [id number] 12:18:00 Test Item Value Reference Range Interpretation [...] RDW-SD (test code = 44.4 fL 38.5-51.6 92084-5) RDW-CV (test code = 14.5 % 12.1-15.4 788-0) PLT (test code = See_Comment H [Automated 777-3) message] The sy stem which generated this result transmitted reference range : 150 - 328 10*3/ ?L. The reference r torito was not used to interpret this result as normal/abnormal . MPV (test code = 8.5 fL 9.8-13 L 13100-3) NRBC/100 WBC (test See_Comment [Automat ed code = 6987500564) message] The system which generated this result transmitted reference range : 0.0 - 10.0 /100 WBCs. The refer ence range was not u sed to interpret th is result as normal/abnormal . NRBC x10^3 (test code <0.01 See_Comment [Auto mated = 7030641824) message] The s ystem which generated this result transmitted reference range : 10*3/?L. The reference range was not used to interpret this result as normal/abnormal . GRAN MAT (NEUT) % 90.4 % (test code = 770-8) IMM GRAN % (test code 1.30 % = 7611975225) LYMPH % (test code = 7.1 % 736-9) MONO % (test code = 0.5 % 5905-5) EOS % (test code = 0.1 % 713-8) BASO % (test code = 0.6 % 706-2) GRAN MAT x10^3(ANC) 7.74 10*3/uL 1.99-6.95 H (test code = 9696424322) IMM GRAN x10^3 (test 0.11 10*3/uL 0-0.06 H code = 5002231297) LYMPH x10^3 (test code 0.61 10*3/uL 1.09-3.23 L = 731-0) MONO x10^3 (test code 0.04 10*3/uL 0.36-1.02 L = 742-7) EOS x10^3 (test code = <0.03 0.06-0.53 L 711-2) BASO x10^3 (test code 0.05 10*3/uL 0.01-0.09 = 704-7) POLYCHROMASIA (test 2+ See_Comment [Automa ronan code = 46470-5) message] The system which generated this result transmitted reference range : 2+. The referen ce range was not u sed to interpret th is result as normal/abnormal . BANDS (test code = Increased A 5892525248) Lab Interpretation Abnormal (test code = 20143-8) [facility] CenterPROCALCITONIN2020-11-09 11:48:00 Test Item Value Reference Range Interpretation Comments Procalcitonin (test 0.36 ng/mL <0.07 H code = 3487831290) JAMES (test code = JAMES) INTERPRETATION OF [...] lung abscess/empyema. For further information please refer to:[email or web address] Lab Interpretation Abnormal (test code = 65798-5) [facility] CenterLAWYATE [id number] 10:53:00 Test Item Value Reference Range Interpretation Comments LDH (test code = 6154976764) 351 U/L 300-600 Lab Interpretation (test code = Normal 22842-3) [facility] CenterSEDIMENTATION [id number] 10:07:00 Test Item Value Reference Range Interpretation Comments ESR (test code = See_Comment H [Automated message] 9400800550) The system [employer] generated this result transmitted ref erence range: 0 - 10 m m/HR. The reference r torito was not used to interpret this result as normal/abnor mal. Lab Interpretation (test Abnormal code = 03610-5) [facility] CenterPOCT GLUCOSE (AUTOMATED)2020-08-21 09:45:00 Test Item Value Reference Range Interpretation Comments POCT GLU (test code = 5507003422) 287 mg/dL 70-110 H Lab Interpretation (test code = Abnormal 14887-3) [facility] CenterGlycosylated Hemoglobin (A1C)2020-08-21 09:29:00 Test Item Value Reference Range Interpretation Comments HGB A1C (test code = 4548-4) 9.8 % 4-6 H Lab Interpretation (test code = Abnormal 65716-5) [facility] CenterCOVID-19 (ID NOW RAPID TESTING)2020-08-21 09:13:00 Test Item Value Reference Range Interpretation Comments SARS-CoV-2 Rapid ID NOW Not Detected Not Detected (test code = 69112-1) JAMES (test code = JAMES) ID NOW COVID-19 Assay is an isothermal nucleic acid amplification test intended for the qualitative detection of nucleic acid from SARS-CoV-2 viral RNA in nasopharyngeal (DIRECTOR OF FIELD SALES) specimens. It is used under Emergency Use [...] indicated. Lab Interpretation Normal (test code = 09282-5) [facility] Center[facility]th[facility] Time / [id number] 08:59:00 Test Item Value Reference Range Interpretation Comments PROTIME PATIENT (test See_Comment H [Auto mated message] code = 5964-2) The system [employer] generated this result transmitted ref erence range: 10.1 - 1 2.6 Seconds. The reference range was not used to int erpret this result as normal/abnormal . INR (test code = 6301-6) Nor mal INR <1.1; Warfarin Therap eutic range 2.0 to 3. 0 or 2.5 to 3.5, dep ending upon the indica tions. Lab Interpretation (test Abnormal code = 02507-2) [facility]TT2020-[facility] 08:59:00 Test Item Value Reference Range Interpretation Comments APTT Patient (test code = See_Comment [ Automated message] 3173-2) The system [employer] generated this result transmitted ref erence range: 26 - 36 Seconds. The re ference range was not u sed to interpret this result as normal/abnor mal. Lab Interpretation (test Normal code = 39951-2) [facility]OLIC PAN[facility] (NA, K, CL, CO2, GLUCOSE, BUN, CREATININE, CA)2020-08-21 08:52:00 Test Item Value Reference Range Interpretation Comments NA (test code = 136 mmol/L 135-145 6286378306) K (test code = 4.3 mmol/L 3.5-5 9867794178) CL (test code = 104 mmol/L 98-108 9260030876) CO2 TOTAL (test code = 24 mmol/L 23-31 4339277206) AGAP (test code = 2-16 6873605072) BUN (test code = 8 mg/dL 7-23 1017349823) GLUCOSE (test code = 308 mg/dL 70-110 H 3161757673) CREATININE (test code = 0.72 mg/dL 0.6-1.25 8375519830) CALCIUM (test code = 7.8 mg/dL 8.6-10.6 L 5655354076) eGFR Calculation mL/min/1.73m2 (Non-) (test code = 4199600202) eGFR Calculation mL/min/1.73m2 () (test code = 7302240133) JAMES (test code = JAMES) Association of [...] tests). Lab Interpretation Abnormal (test code = 27392-4) [facility] CenterHEPAT[facility] FUNCTION PANEL (90674) (ALB,T.PRO,BILI T,BU/BC,ALT,AST,ALK PHOS)2020-08-21 08:52:00 Test Item Value Reference Range Interpretation Comments TOTAL BILI (test code = 8110848675) 0.8 mg/dL 0.1-1.1 BILI UNCON (test code = 6139547964) 0.3 mg/dL 0.1-1.1 BILI CONJ (test code = 7783987596) 0.0 mg/dL 0-0.3 T PROTEIN (test code = 6285312905) 5.7 g/dL 6.3-8.2 L ALBUMIN (test code = 2069471637) 2.7 g/dL 3.5-5 L ALK PHOS (test code = 3679798713) 245 U/L 34-122 H ALTv (test code = 1742-6) 37 U/L 5-50 AST(SGOT) (test code = 5859732009) 43 U/L 13-40 H Lab Interpretation (test code = Abnormal 71696-6) [facility]
[2022-09-29] MEDS ORDERED: ONDANSETRON 4 MG/2 ML VIAL ONE (16:48)
[2022-09-29] MEDS ORDERED: HYDROMORPHONE HCL 1 MG/ML INJ ONE ×2 (16:48→17:08)
[2022-09-29 17:09] LABS: Absolute Lymphocytes (CBC) 1.2 K/uL (0.7-4.9); Hematocrit 40.6 % (39.6-49.0); Lymphocytes % 18.6 % (15.3-44.8); MCV 84.5 fL (80-100); MPV 6.5 fL (7.6-11.3); RBC Red Blood Cell Count 4.81 M/uL (4.33-5.43)
--- NOTE | 2022-09-29 17:13 | RAD REPORT ---
EXAM DESCRIPTION: RAD - Chest Single View - 09/29/2022 4:37 pm CLINICAL HISTORY: PALPITATIONS COMPARISON: Portable 06/07/2022 TECHNIQUE: AP portable chest image was obtained 09/29/2022 4:37 pm . FINDINGS: Lungs are clear of acute finding. Interstitial pattern matches comparison. Heart and vascu lature are normal. No measurable pleural effusion and no pneumothorax. No acute bony abnormality seen . No acute aortic findings suspected. IMPRESSION: No acute cardiopulmonary process.
--- NOTE | 2022-09-29 20:06 | ER ---
Nurse's Notes [facility] Name: Kiel Ngo Age: 71 yrs Sex: Male : 1950 Arrival Date: 09/29/2022 Time: 16:12 Bed 19 Private MD: Diagnosis: Chronic pain syndrome Presentation: 09/29 16:13 Chief complaint: Patient states: Right hip pain-chronic and out of pain medications. kb3 Coronavirus screen: Vaccine status: Patient reports being unvaccinated. Client denies travel out of the [place] in the last 14 days. Ebola Screen: Patient negative for fever greater than or equal to 101.5 degrees Fahrenheit, and additional compatible Ebola Virus Disease symptoms Patient denies exposure to infectious person. Patient denies travel to an Ebola-affected area in the 21 days before illness onset. Initial Sepsis Screen: Does the patient meet any 2 criteria? No. Patient's initial sepsis screen is negative. Does the patient have a suspected source of infection? No. Patient's initial sepsis screen is negative. Risk Assessment: Do you want to hurt yourself or someone else? Patient reports no desire to harm self or others. Onset of symptoms is unknown. 16:13 Method Of Arrival: EMS: [facility] kb3 16:13 Acuity: JOZEF 3 kb3 Triage Assessment: 16:15 General: Appears in no apparent distress. Behavior is calm, cooperative. Pain: kb3 Complains of pain in right leg Pain does not radiate. Pain currently is 10 out of 10 on a pain scale. Historical: - Allergies: 16:15 Demerol; kb3 16:15 metformin; kb3 16:15 Morphine; kb3 - Home Meds: 16:15 BP med [Active]; Klonopin 2 mg Oral TbDi 2 tabs 4 times a day [Active]; MUSCLE RELAXER kb3 four times a day [Active]; hydromorphone 4 mg Oral tab 1 tab three times a day [Active]; - PMHx: 16:15 Atrial fibrillation; chronic back pain; Chronic right leg pain; neuropathy; kb3 - PSHx: 16:15 back sx; PANCREAS SX; R. Ankle SX; kb3 - Immunization history:: Adult Immunizations unknown, Client reports having NOT received the Covid vaccine. - Social history:: Smoking status: Patient denies any tobacco usage or history of. Screenin:15 [facility] ED Fall Risk Assessment (Adult) History of falling in the last 3 months, kb3 including since admission No falls in past 3 months (0 pts) Confusion or Disorientation No (0 pts) Intoxicated or Sedated No (0 pts) Impaired Gait Yes (1 pt) Mobility Assist Device Used Yes (1 pt) Altered Elimination Yes (1 pt) Score/Fall Risk Level 3 or more points = High Risk Oriented to surroundings, Maintained a safe environment, Educated pt \T\ family on fall prevention, incl call for assistance when getting out of bed, Assessed \T\ reinforced patient's understanding of fall precautions, Hourly rounding (assess needs \T\ fall precautionary measures) done, Used ambulatory aids as needed (educated on \T\ assisted with), Offered frequent toileting (1:1 observation). 16:15 Abuse screen: Denies threats or abuse. Denies injuries from another. kb3 16:15 Nutritional screening: No deficits noted. Tuberculosis screening: No symptoms or risk kb3 factors identified. Assessment: 16:15 General: see triage note. kb3 18:00 General: Pt requesting more pain medication. MD notified. Advised pt that no further kb3 pain medication was available at this time. PT reports undertanding. 18:00 General: Pt requesting another dose of pain medication. BULB FARMWORKER notified. No further orders kb3 received at this time. 20:10 General: Pt requesting to go home if we are not going to get him any more Dilaudid. BULB FARMWORKER kb3 notified. 20:10 Reassessment:. kb3 Vital Signs: 16:13 BP 161 / 104; Pulse 137; Resp 20; Temp 98.5; Pulse Ox 98% ; Weight 84.37 kg; Height 5 kb3 ft. 11 in. (180.34 cm); Pain 10/10; 17:15 BP 161 / 88; Pulse 110; Resp 20; Pulse Ox 96% on R/A; kb3 18:00 BP 141 / 68; Pulse 103; Resp 20; Pulse Ox 96% ; kb3 20:00 BP 160 / 78; Pulse 110; Resp 20; Pulse Ox 98% ; kb3 16:13 Body Mass Index 25.94 (84.37 kg, 180.34 cm) kb3 ED Course: 16:12 Patient arrived in ED. ss 16:12 Rosa Harrison MD is Attending Physician. sp3 16:12 Angelia Hand, RN is Primary Nurse. kb3 16:15 Triage completed. kb3 16:15 Arm band placed on right wrist. kb3 16:15 Patient has correct armband on for positive identification. Bed in low position. Call kb3 light in reach. Side rails up X2. Warm blanket given. 16:15 No provider procedures requiring assistance completed. Maintain EMS IV. Dressing kb3 intact. Good blood return noted. Site clean \T\ dry. Gauge \T\ site: 20G left hand. 16:38 XRAY Chest (1 view) In Process Unspecified. EDMS 18:55 Vera Lee FNP-C is [facility]. kb 20:50 IV discontinued, intact, bleeding controlled, No redness/swelling at site. kb3 Administered Medications: 16:58 Drug: Dilaudid (HYDROmorphone) 2 mg Route: IVP; Site: left hand; kb3 17:30 Follow up: Response: No adverse reaction; Pain is decreased kb3 16:58 Drug: Zofran (Ondansetron) 4 mg Route: IVP; Site: left hand; kb3 17:45 Follow up: Response: No adverse reaction kb3 Medication: 16:15 VIS not applicable for this client. kb3 Outcome: 20:06 Discharge ordered by . kb 20:50 Discharged to home via ambulance. kb3 20:50 Condition: stable 20:50 Discharge instructions given to patient, Instructed on discharge instructions, follow up and referral plans. medication usage, Demonstrated understanding of instructions, follow-up care, medications. 21:09 Patient left the ED. kb3 Signatures: Dispatcher [employer] EDMS Vera Lee FNP-C FNP-Ckb Smirch, Shelby, RN RN Rosa Harrison MD MD sp3 Angelia Hand, RN RN kb3 Corrections: (The following items were deleted from the chart) 16:16 16:15 Home Meds: dilaaudid; kb3 kb3
--- NOTE | 2022-09-29 20:06 | EDPHYS ---
Physician Documentation [facility] Name: Kiel Ngo Age: 71 yrs Sex: Male : 1950 Arrival Date: 09/29/2022 Time: 16:12 Bed 19 Private MD: ED Physician Rosa Harrison HPI: 09/29 16:28 This 71 yrs old Male presents to ER via EMS with complaints of Hip Pain. sp3 16:28 71-year-old male well-known to the ER with history of atrial fibrillation, chronic back sp3 pain, chronic right hip pain, neuropathy amongst others presents to the ED via EMS for right-sided hip pain. Patient states that he "ran out of his medications" yesterday. No new trauma or changes in his medication routine reported. Systems otherwise negative for anything significant.. Historical: - Allergies: 16:15 Demerol; kb3 16:15 metformin; kb3 16:15 Morphine; kb3 - Home Meds: 16:15 BP med [Active]; Klonopin 2 mg Oral TbDi 2 tabs 4 times a day [Active]; MUSCLE RELAXER kb3 four times a day [Active]; hydromorphone 4 mg Oral tab 1 tab three times a day [Active]; - PMHx: 16:15 Atrial fibrillation; chronic back pain; Chronic right leg pain; neuropathy; kb3 - PSHx: 16:15 back sx; PANCREAS SX; R. Ankle SX; kb3 - Immunization history:: Adult Immunizations unknown, Client reports having NOT received the Covid vaccine. - Social history:: Smoking status: Patient denies any tobacco usage or history of. ROS: 16:29 Constitutional: Negative for fever, chills, and weight loss, Eyes: Negative for injury, sp3 pain, redness, and discharge, ENT: Negative for injury, pain, and discharge, Neck: Negative for injury, pain, and swelling, Respiratory: Negative for shortness of breath, cough, wheezing, and pleuritic chest pain, Abdomen/GI: Negative for abdominal pain, nausea, vomiting, diarrhea, and constipation, Skin: Negative for injury, rash, and discoloration, Allergy/Immunology: Negative for hives, rash, and allergies, Endocrine: Negative for neck swelling, polydipsia, polyuria, polyphagia, and marked weight changes, Hematologic/Lymphatic: Negative for swollen nodes, abnormal bleeding, and unusual bruising. 16:29 All other systems are negative. Exam: 16:29 Constitutional: This is a well developed, well nourished patient who is awake, alert, sp3 and in no acute distress. Head/Face: Normocephalic, atraumatic. Eyes: Pupils equal round and reactive to light, extra-ocular motions intact. Lids and lashes normal. Conjunctiva and sclera are non-icteric and not injected. Cornea within normal limits. Periorbital areas with no swelling, redness, or edema. ENT: Nares patent. No nasal discharge, no septal abnormalities noted. External auditory canals are clear. Oropharynx with no redness, swelling, or masses, exudates, or evidence of obstruction, uvula midline. Mucous membranes moist. Neck: Trachea midline, no thyromegaly or masses palpated, and no cervical lymphadenopathy. Supple, full range of motion without nuchal rigidity, or vertebral point tenderness. No Meningismus. Chest/axilla: Normal chest wall appearance and motion. Nontender with no deformity. No lesions are appreciated. Respiratory: Lungs have equal breath sounds bilaterally, clear to auscultation and percussion. No rales, rhonchi or wheezes noted. No increased work of breathing, no retractions or nasal flaring. Abdomen/GI: Soft, non-tender, with normal bowel sounds. No distension or tympany. No guarding or rebound. No evidence of tenderness throughout. Skin: Warm, dry with normal turgor. Normal color with no rashes, no lesions, and no evidence of cellulitis. MS/ Extremity: Pulses equal, no cyanosis. Neurovascular intact. Full, normal range of motion. Neuro: Awake and alert, GCS 15, oriented to person, place, time, and situation. Cranial nerves II-XII grossly intact. Motor strength 5/5 in all extremities. Sensory grossly intact. Cerebellar exam normal. Normal gait. Psych: Awake, alert, with orientation to person, place and time. Behavior, mood, and affect are within normal limits. 16:29 Cardiovascular: Rate: tachycardic. 17:34 ECG was reviewed by the Attending Physician. KG demonstrates sinus tachycardia 124 bpm sp3 with normal QRS, normal axis, normal intervals, nonspecific diffuse ST/T changes without evidence of acute ischemia. Vital Signs: 16:13 BP 161 / 104; Pulse 137; Resp 20; Temp 98.5; Pulse Ox 98% ; Weight 84.37 kg; Height 5 kb3 ft. 11 in. (180.34 cm); Pain 10/10; 17:15 BP 161 / 88; Pulse 110; Resp 20; Pulse Ox 96% on R/A; kb3 18:00 BP 141 / 68; Pulse 103; Resp 20; Pulse Ox 96% ; kb3 20:00 BP 160 / 78; Pulse 110; Resp 20; Pulse Ox 98% ; kb3 16:13 Body Mass Index 25.94 (84.37 kg, 180.34 cm) 3 MDM: 16:19 Patient medically screened. 3 16:31 Data reviewed: vital signs, nurses notes. ED course: 71-year-old male that is frequent sp3 patient of the ER for pain medications and withdrawal now presents again for same symptoms. Today his heart rate is 140s with mild elevation in blood pressure as well. Patient is likely withdrawing as well. We will give Dilaudid 2 mg IV and get blood work to ascertain if there is any secondary process going on. Otherwise likely plan is to discharge patient home once vital stabilized. Patient is no acute distress resting comfortably. I met highly suspicious for PE, ACS, metabolic arrangement, sepsis, shock, or any other critical findings at this time.. 20:05 ED course: Pt does not want to wait on chemistry lab results. States he is ready to go kb home. . 18 16:19 Order name: CBC with Diff; Complete Time: 17:30 3 09/29 16:19 Order name: Troponin HS 3 09/29 16:19 Order name: XRAY Chest (1 view); Complete Time: 17:30 3 09/29 16:19 Order name: CMP sp3 09/29 16:19 Order name: EKG; Complete Time: 16:20 3 09/29 16:19 Order name: Cardiac monitoring; Complete Time: 16:41 3 09/29 16:19 Order name: EKG - Nurse/Tech; Complete Time: 17:10 3 09/29 16:19 Order name: IV Saline Lock; Complete Time: 16:41 3 09/29 16:19 Order name: Labs collected and sent; Complete Time: 17:10 3 09/29 16:19 Order name: O2 Sat Monitoring; Complete Time: 16:41 sp3 09/29 18:16 Order name: Labs - recollect needed: recollect chemistries/ hemolyzed; Complete Time: eb 21:10 Administered Medications: 16:58 Drug: Dilaudid (HYDROmorphone) 2 mg Route: IVP; Site: left hand; kb3 17:30 Follow up: Response: No adverse reaction; Pain is decreased kb3 16:58 Drug: Zofran (Ondansetron) 4 mg Route: IVP; Site: left hand; kb3 17:45 Follow up: Response: No adverse reaction kb3 Disposition Summary: 09/29/22 20:06 Discharge Ordered Location: Home kb Condition: Stable kb Diagnosis - Chronic pain syndrome kb Followup: kb - With: Emergency Department - When: As needed - Reason: Worsening of condition Followup: kb - With: Private Physician - When: 2 - 3 days - Reason: Recheck today's complaints, Continuance of care, Re-evaluation by your physician Discharge Instructions: - Discharge Summary Sheet kb - Chronic Pain, Adult kb Forms: - Medication Reconciliation Form kb - Thank You Letter kb - Antibiotic Education kb - Prescription Opioid Use kb Signatures: Dispatcher [employer] EDMS Vera Lee, KYLEE-C IRON CASTER-Shannan Tyson Setul, MD MD sp3 Angelia Hand, RN RN kb3 Corrections: (The following items were deleted from the chart) 16:16 16:15 Home Meds: dilaaudid; kb3 kb3
[2022-09-29 21:14] VITALS: TEMP 98.5
[2022-09-29 21:18] VITALS: BP 160/78; O2SAT 98
[2022-09-30 04:47] LABS: Potassium 4.9 mmol/L (3.5-5.1)
[2022-09-30 04:48] LABS: Albumin 4.5 g/dL (3.4-5.0); Bilirubin Total 0.9 mg/dL (0.2-1.0); Protein, Total 8.2 g/dL (6.4-8.2)
--- NOTE | 2022-10-01 15:18 | EKG ---
Test Date: 2022-09-29 Test Time: 16:59:13 Harbor Tug Captain: YADIRA MEASUREMENT RESULTS: Intervals: Rate: 124 NH: 156 QRSD: 78 QT: 308 QTc: 442 Allen: P: 52 NH: 156 QRS: 2 T: 35 INTERPRETIVE STATEMENTS: Sinus tachycardia Possible Left atrial enlargement Possible Inferior infarct, age undetermined Cannot rule out Anterior infarct, age undetermined Abnormal ECG Compared to ECG 06/07/2022 09:12:27 No significant changes Electronically Signed On 10-01-22 15:16:22 CHAIN SPLITTER by Óscar Holman
== END 2022-09-29 21:09 | disposition home or self-care (01) ==
LOC: ER 16:10
DX: G89.4 Chronic pain syndrome (principal); I48.91 Unspecified atrial fibrillation; Z88.5 Allergy status to narcotic agent; Z88.8 Allergy status to other drugs, medicaments and biological substances
CPT/HCPCS: 93005; 85025; 36415; 84484; 80053; 71045; 96375; 96374; 99284; J1170 ×2; J2405

== ENCOUNTER 2022-10-07 06:33 | Emergency (ER) | payer OTHER ==
--- OUTSIDE RECORDS SUMMARY | 2022-10-07 06:59 | XMS REPORT | Continuity of Care Document ---
:1950 Author Organization [facility] t Address [address] [place] [address] Care Team Providers Name Role Phone CALVIN [...] PACO LACEY Attending Clinician Unavailable Doctor Unassigned, [place] Attending Clinician Unavailable Wilder VILLAREAL, Angi K.HWong Attending Clinician Jl Mccabe MD Attending Clinician Kelly Washington MD Attending Clinician [phone] Mukul Gallardo MD Attending Clinician MUKUL GALLARDO Admitting Clinician Unavailable Harrison MD, Premal G Admitting Clinician KRUPA VIKA G Admitting Clinician Unavailable Nicci VILLAREAL, Mukul Anand Admitting Clinician Payers Payer Name Policy Type Policy Number Effective Date Expiration Date Tony doe MEDICARE PART A [id number] 2007 \\T\\ B 00:00:00 [employer] INDEMNITY [id number] 2016 00:00:00 MEDICARE PART A [id number] 2014 \\T\\ B - MEDICARE 00:00:00 INDEMNITY/TRADITIO [id number] NAL CHOICE - [employer] 00:00:00 Problems Condition [...] Source Name Type Date Date Clinician [place] [facility] Active Rash 2019- Univers ty to [...] Quantity Comments Source Exposure to Not sure Oral of SARS-CoV-2 [place] [facility] (event) Branch History of Chews Tobacco University of tobacco use [place] [facility] History SDOH 2020-11-17 2020-11-17 5 University o f Financial 00:00:00 00:00:00 [place] [facility] History SDFL Food 2020-11-17 2020-11-17 1 Univers ity of Worry 00:00:00 00:00:00 [place] [facility] History SDOH Food 2020-11-17 2020-11-17 1 Univers ity of Scarcity 00:00:00 00:00:00 [place] [facility] History SDOH 2020-11-17 2020-11-17 1 University o f Transport Med 00:00:00 00:00:00 [place] [facility] al [facility] History SDOH 2020-11-17 2020-11-17 1 University o f Transport Non-Med 00:00:00 00:00:00 [facility] edical Branch Education 2020-11-16 2020-11-16 21 Oral of 00:00:00 00:00:00 [facility] Alcohol intake 2020-11-16 2020-11-16 Ex-drinker [facility] 00:00:00 00:00:00 (finding) [facility] Tobacco use and 2020-08-21 2020-08-21 Former user Universi ty of exposure 00:00:00 00:00:00 [facility] Tobacco Comment 2020-08-21 2020-08-21 quit 10 years Univer sity of 00:00:00 00:00:00 ago, started in [place] Med ical 2nd year of Branch college (~40 years) Alcohol Comment 2020-08-21 2020-08-21 Used to have 2-3 Uni versity of 00:00:00 00:00:00 six-packs of [place] Medica l beer daily x 20 Branch years, quit 2004 History [facility] 2020-08-21 2020-08-21 99 University o f Alcohol Frequency 00:00:00 00:00:00 [place] [facility] edical Branch History [facility] 2020-08-21 2020-08-21 99 Oral o f Alcohol Std 00:00:00 00:00:00 [place] [facility] Drinks Branch History [facility] 2020-08-21 2020-08-21 99 Oral o f Alcohol Binge 00:00:00 00:00:00 [facility] [place] [facility] [place] Sex Assigned At [birth year] Universit y of 00:00:00 00:00:00 [facility] Smoking Status Start Date Stop Date Source Never smoker [facility] Medications Ordered Filled Start Stop [...] at [place] 18 bedtime. Medical Branch HYDROmorpho 0 Yes [...] by ity of tablet 16:47: mouth at [place] 18 bedtime. Medical Branch HYDROmorpho 0 Yes [...] 0845, Until Discontinu ed, Routine amLODIPine Yes [id number] 10mg Take 1 Univers 10 mg 3-07 tablet by ity of tablet 00:00: mouth [place] 00 daily. Medical Branch clotrimazol Yes [id number] Apply to Univers e 1 % 3-07 face/ears, ity of topical 00:00: armpits, [place] cream 00 pannus and Medical back/any Branch other rash twice a day fluocinonid 0 Yes [id number] Apply to Univers e 0.05 % 3-07 scalp ity of solution 00:00: twice a [place] 00 day Medical Branch triamcinolo Yes [id number] Apply to Univers ne 3-07 back, ity of acetonide 00:00: armpits [place] 0.1 % cream 00 and other Med ical affected Branch areas twice daily, please mix with clotrimazo le hydrOXYzine Yes [id number] 10mg Take 1 Univers 10 mg 3-07 tablet by ity of tablet 00:00: mouth 2 00 (two) Medical times Branch daily. amLODIPine Yes [id number] 10mg Take 1 Univers 10 mg 3-07 tablet by ity of tablet 00:00: mouth [place] 00 daily. Medical Branch clotrimazol Yes [id number] Apply to Univers e 1 % 3-07 face/ears, ity of topical 00:00: armpits, [place] cream 00 pannus and Medical back/any Branch other rash twice a day fluocinonid Yes [id number] Apply to Univers e 0.05 % 3-07 scalp ity of solution 00:00: twice a day Medical Branch triamcinolo Yes [id number] Apply to Univers ne 3-07 back, ity of acetonide 00:00: armpits [place] 0.1 % cream 00 and other Med ical affected Branch areas twice daily, please mix with clotrimazo le hydrOXYzine Yes [id number] 10mg Take 1 Univers 10 mg 3-07 tablet by ity of tablet 00:00: mouth 2 [place] 00 (two) Medical times Branch daily. amLODIPine Yes [id number] 10mg Take 1 Univers 10 mg 3-07 tablet by ity of tablet 00:00: mouth [place] 00 daily. Medical Branch clotrimazol 0 Yes [id number] Apply to Univers e 1 % 3-07 face/ears, ity of topical 00:00: armpits, [place] cream 00 pannus and Medical back/any Branch other rash twice a day fluocinonid 2020-0 Yes [id number] Apply to Univers e 0.05 % 3-07 scalp ity of solution 00:00: twice a day Medical Branch triamcinolo 2020-0 Yes [id number] Apply to Univers ne 3-07 back, ity of acetonide 00:00: armpits [place] 0.1 % cream 00 and other Med ical affected Branch areas twice daily, please mix with clotrimazo le hydrOXYzine Yes [id number] 10mg Take 1 Univers 10 mg 3-07 tablet by ity of tablet 00:00: mouth 2 [place] (two) Medical times Branch daily. amLODIPine Yes [id number] 10mg Take 1 Univers 10 mg 3-07 tablet by ity of tablet 00:00: mouth [place] 00 daily. Medical Branch clotrimazol Yes [id number] Apply to Univers e 1 % 3-07 face/ears, ity of topical 00:00: armpits, [place] cream 00 pannus and Medical back/any Branch other rash twice a day fluocinonid Yes [id number] Apply to Univers e 0.05 % 3-07 scalp ity of solution 00:00: twice a day Medical Branch triamcinolo 0 Yes [id number] Apply to Univers ne 3-07 back, ity of acetonide 00:00: armpits [place] 0.1 % cream 00 and other Med ical affected Branch areas twice daily, please mix with clotrimazo le hydrOXYzine Yes [id number] 10mg Take 1 Univers 10 mg 3- tablet by ity of tablet 00:00: mouth 2 (two) Medical times Branch daily. cephALEXin 2020-2020- No [id number] 500mg Take 1 Univers 500 mg -04 14- capsule by ity of capsule 00:00: 05:59 mouth [place] 00 :00 every 6 Medical (six) Branch hours for 3 days. cephALEXin 2020-0 2020- No [id number] 500mg Take 1 Univers 500 mg 3-04 14- capsule by ity of capsule 00:00: 05:59 mouth [place] 00 :00 every 6 Medical (six) Branch hours for 3 days. hydrOXYzine 2020-2020- No [id number] 10mg Take 1 Univers 10 mg 3- 03-07 tablet by ity of tablet 00:00: 00:00 mouth 2 [place] 00 :00 (two) Medical times [place] daily. morpHINE Yes 4mg 4 mg, Slow Uni vers injection 4 -06 IV Push, ity of mg 22:40: Q6HPRN, [place] 02 Starting Medical 12/16/20 [place] at 1640, Until Discontinu ed, Routine, Pain [...] 00 :00 dose, Sat Medical 12/16/20 at [place] 0515, Routine lactated 2020- No 1000mL at 125 Univ ers ringers IV 12-16 03-06 mL/hr, ity of infusion 01:00: 00:16 1,000 mL, [place] 1,000 mL 00 :00 IV Medical Infusion, [place] ONCE, 1 dose, 12/15/20 at 1900, Routine iohexol 2020- No 100mL 100 mL, Unive rs (OMNIPAQUE 12-15-05 Intravenou it y of 350 22:24: 22:24 s, ONCE, 1 [place] BULK-100 00 :00 dose, Fri Medica l mL) 12/15/20 at [place] injection 1645, 100 mL Routine cephALEXin 2020- [...] NaCl 0.9% 2020- No 500mL at 999 [facility] ers (NS) bolus 12-15-05 mL/hr, 500 it y of infusion 16:00: 15:26 mL, IV [place] 500 mL 00 :00 Piggyback, Medical ONCE, 1 Branch dose, Fri12/15/20 at 1000, STAT HYDROmorpho Yes 4mg 4 mg, [facility] rs ne 05 Oral, BID, ity of (DILAUDID) 15:30: First dose [place] tablet 4 mg 00 (after Medica l last Branch modificati on) on Fri12/15/20 at 0930, Until Discontinu ed, Routine amLODIPine 2020- No [id number] 10mg Take 1 Univers 10 mg 12-1507 tablet by ity of tablet 00:00: 00:00 mouth [place] 00 :00 daily. Medical Branch HYDROmorpho 2020- No 1mg 1 mg, [facility] ers ne 12-14 03-05 Oral, ity of (DILAUDID) 17:35: 15:18 Q6HPRN, [place] tablet 1 mg 30 :06 Starting Medi [facility] 12/14/20 Branch at 1135, Until Fri12/15/20 at 0918, Routine, Pain (scale 7-10) hydrOXYzine Yes 10mg 10 mg, [facility] ers (ATARAX) 304 Oral, BID, ity o f tablet 10 17:30: First dose [place] mg 00 on [facility] 12/14/20 at Branch 1130, Until Discontinu ed, Routine lisinopriL 0 Yes 5mg 5 mg, Univer s (PRINIVIL,Z -04 Oral, ity of ESTRIL) 17:30: DAILY, [place] tablet 5 mg 00 First dose Me dical on [facility] Branch 12/14/20 at 1130, Until Discontinu ed, Routine triamcinolo 2020- No [id number] Apply to Univers ne 12-14 back, ity of acetonide 00:00: 00:00 armpits [place] 0.1 % cream 00 :00 and other Med ical affected Branch areas twice daily, please mix with clotrimazo le clotrimazol 2020- No [id number] Apply to Univers e 1 % 12-14 face/ears, ity of topical 00:00: 00:00 armpits, [place] cream 00 :00 pannus and Medical back/any Branch other rash twice a day fluocinonid 2020- No [id number] Apply to Univers e 0.05 % 12-14 scalp ity of solution 00:00: 00:00 twice a [place] 00 :00 day Medical Branch hydrOXYzine 2020- No [id number] 10mg Take 1 Univers 10 mg 12-14 [...] 1 [place] injection 4 00 :00 dose, [facility] ical mg 12/12/20 at Branch 2300, Routine traMADoL 2020- No 50mg 50 mg, Univer s (ULTRAM) 12-13 03-03 Oral, ity of tablet 50 03:45: 03:34 ONCE, 1 [place] mg 00 :00 dose, [facility] 12/12/20 at Branch 2145, Routine insulin Yes 15U 15 Units, [facility] rs glargine 12-12 Subcutaneo ity o f (LANTUS 15:00: us, DAILY, [place] U-100) 00 First dose Medical injection on [facility] 15 Units 12/12/20 at 0900, Until Discontinu ed hydrOXYzine 2020- No 10mg 10 mg, Uni vers (ATARAX) 12-12 03-02 Oral, ity of tablet 10 08:15: 07:33 ONCE, 1 [place] mg 00 :00 dose, [facility] 12/12/20 at Branch 0215, Routine mirtazapine Yes 7.5mg 7.5 mg, Un toi (REMERON) 3-02 Oral, QHS, ity of tablet 7.5 03:00: First dose [place] mg 00 on [facility] 12/11/20 at Branch 2100, Until [...] 00 Fri12/11/20 Me dical cream at 1315, [place] Until Discontinu ed, Routine hydrocortis 0 Yes [...] ity of 1,000 mg in 19:00: 17:35 [place], [place] NaCl 0.9% 00 :26 Q8H ABX, [...] ed, Routine insulin Yes 5U 5 Units, [facility] [place] [facility] lispro 12-11 Subcutaneo ity of (human) 18:00: us, TID [place] (HumaLOG 00 MEALS, Medical U-100) First dose Branch injection 5 on Mon Units 12/11/20 at 1200, Until Discontinu ed Polyethylen Yes 17g 17 g, [facility] rs e Glycol 12-11 Oral, ity of 3350 17:47: [id number], [place] (MIRALAX) 05 Starting Medica l powder [...] 0630, STAT piperacilli No 3.375g 3.375 g, [facility] n-tazobacta 12-11 IV ity of m (ZOSYN) 12:00: 17:48 [place], [place] injection 00 :24 Q6H, First Medi jose c 3.375 g dose on Branch Fri12/11/20 at 0600, Until Discontinu ed, KAHLIL
Re ason for Anti-Infec tive: Empiric Therapy for Suspected Infection< br>Empiric Therapy Site: Skin / Soft tissue
Duration of therapy: 72 hours sennosides- Yes [id number] 1{tbl} Take 1 [facility] docusate 2-09 tablet by ity of sodium 00:00: mouth 2 [place] 8.6-50 mg 00 (two) Medical per tablet times Branch daily. hydrocortis Yes [id number] Apply to [facility] one 2.5 % 11-21 affected ity of cream 00:00: area(s) 2 [place] 00 (two) Medical times Branch daily. blood sugar Yes [id number] Use to [facility] diagnostic 2 check ity of (FREESTYLE 00:00: blood [place] LITE 00 glucose Medical STRIPS) 4-5 times Branch strip daily. Polyethylen Yes [id number] 17g Take 1 Univers e Glycol 2-09 Packet by ity of 3350 17 00:00: mouth [place] gram powder 00 every 24 Medi jose c (twenty-fo Branch ur) hours as needed for Constipati on. sennosides- Yes [id number] 1{tbl} Take 1 Univers docusate 2-09 tablet by ity of sodium 00:00: mouth 2 [place] 8.6-50 mg 00 (two) Medical per tablet times Branch daily. hydrocortis Yes [id number] Apply to Univers one 2.5 % 2-09 affected ity of cream 00:00: area(s) 2 [place] 00 (two) Medical times Branch daily. blood sugar Yes [id number] Use to Univers diagnostic 11-21 check ity of (FREESTYLE 00:00: blood [place] LITE 00 glucose Medical STRIPS) 4-5 times Branch strip daily. Polyethylen Yes [id number] 17g Take 1 Univers e Glycol 2-09 Packet by ity of 3350 17 00:00: mouth [place] gram powder 00 every 24 Medi jose c (twenty-fo Branch ur) hours as needed for Constipati on. sennosides- Yes [id number] 1{tbl} Take 1 Univers docusate 2-09 tablet by ity of sodium 00:00: mouth 2 [place] 8.6-50 mg 00 (two) Medical per tablet times Branch daily. hydrocortis Yes [id number] Apply to Univers one 2.5 % 2-09 affected ity of cream 00:00: area(s) 2 [place] 00 (two) Medical times Branch daily. blood sugar Yes [id number] Use to Univers diagnostic 11-21 check ity of (FREESTYLE 00:00: blood [place] LITE 00 glucose Medical STRIPS) 4-5 times Branch strip daily. Polyethylen 2020-0 Yes [id number] 17g Take 1 Univers e Glycol 2-09 Packet by ity of 3350 17 00:00: mouth [place] gram powder 00 every 24 Medi jose c (twenty-fo Branch ur) hours as needed for Constipati on. sennosides- Yes [id number] 1{tbl} Take 1 Univers docusate 2-09 tablet by ity of sodium 00:00: mouth 2 [place] 8.6-50 mg 00 (two) Medical per tablet times Branch daily. hydrocortis Yes [id number] Apply to [facility] one 2.5 % 11-21 affected ity of cream 00:00: area(s) 2 [place] 00 (two) Medical times Branch daily. blood sugar Yes [id number] Use to [facility] diagnostic 11-21 check ity of (FREESTYLE 00:00: blood [place] LITE 00 glucose Medical STRIPS) 4-5 times Branch strip daily. Polyethylen Yes [id number] 17g Take 1 Univers e Glycol 11-21 Packet by ity of 3350 17 00:00: mouth [place] gram powder 00 every 24 Medi jose c (twenty-fo Branch ur) hours as needed for Constipati on. Insulin 2020- No [id number] 15U inject 15 Univers Glargine 11-21- Units ity of (LANTUS 00:00: 05:59 under the [employer] SOLOSTAR 00 :00 skin every Medic al U-100 morning Branch INSULIN) for 30 100 unit/mL days. (3 mL) injection venlafaxine 2020- No [id number] 150mg Take 1 Univers XR 150 mg 11-21 capsule by ity of 24 hr 00:00: 05:59 mouth 3 [place] capsule 00 :00 (three) Medical times Branch daily for 30 days. Insulin 2020- No [id number] 15U inject 15 Univers Glargine 11-21-12 Units ity of (LANTUS 00:00: 05:59 under the [employer] SOLOSTAR 00 :00 skin every Medic al U-100 morning Branch INSULIN) for 30 100 unit/mL days. (3 mL) injection venlafaxine 2020- No [id number] 150mg Take 1 Univers XR 150 mg 11-21- capsule by ity of 24 hr 00:00: 05:59 mouth 3 [place] capsule 00 :00 (three) Medical times Branch daily for 30 days. triamcinolo 2020- No [id number] Apply to [facility] ne 11-21-04 area(s) 2 ity of acetonide 00:00: 00:00 (two) [place] 0.1 % cream 00 :00 times Medical daily. Branch cephALEXin 2020- No [id number] 1000mg Take 2 Univers 500 mg 11-21 capsules ity of capsule 00:00: 00:00 by mouth 3 [place] 00 :00 (three) Medical times Branch daily. doxycycline 2020- No [id number] 100mg Take 1 Univers hyclate 100 11-21 capsule by i ty of mg capsule 00:00: 00:00 mouth [place] 00 :00 every 12 Medical (twelve) Branch hours. lactobacill 2020- No [id number] 1{tbl} Take 1 Univers us 11-21 tablet by ity of acidophilus 00:00: 00:00 mouth 2 [place] 25 million 00 :00 (two) Medical cell -100 times Branch mg captab daily. bisacodyL 2020- No [id number] 10mg Insert 1 Univers 10 mg 11-21 Suppositor ity of suppository 00:00: 00:00 y into [place] 00 :00 rectum at Medical bedtime as Branch needed for Constipati on. ALPRAZolam 2020- No [id number] .25mg Take 1 Univers (XANAX) 11-21 tablet by ity of 0.25 mg 00:00: 00:00 mouth 2 [place] tablet 00 :00 (two) Medical times Branch daily. hydrOXYzine 2020- No [id number] 20mg Take 2 Univers 10 mg 11-21 [...] Units ity of (NOVOLOG 01:13: under the [facility] FLEXPEN SC) 36 skin. Medical Branch ALPRAZolam [...] Units ity of (NOVOLOG 01:13: under the [facility] FLEXPEN SC) 36 skin. Medical Branch ALPRAZolam [...] Units ity of (NOVOLOG 01:13: under the [facility] FLEXPEN SC) 36 skin. Medical Branch ALPRAZolam 2019-10 Yes .25mg Take 0.25 U nivers (XANAX) 1-12 mg by ity of 0.25 mg 01:13: mouth 2 [place] tablet 36 (two) Medical times Branch daily. HYDROXYZINE 2019-10 2020- No 25mg Take 25 mg Univers PAMOATE 1-11 11-11 by mouth ity of ORAL 20:04: 00:00 daily. [place] 34 :00 Medical Branch hydrocortis 2019-10 Yes [id number] Apply to Univers one 2.5 % 1-11 affected ity of cream 00:00: area(s) 2 [place] 00 (two) Medical times Branch daily. hydrOXYzine 2019-10 Yes [id number] 20mg Take 2 Univers 10 mg 1-11 tablets by ity of tablet 00:00: mouth [place] 00 every 8 Medical (eight) Branch hours as needed for Itching or Anxiety. Polyethylen 2019-10 Yes [id number] 17g Take 1 Univers e Glycol 1-11 Packet by ity of 3350 17 00:00: mouth [place] gram powder 00 every 24 Medi jose c (twenty-fo Branch ur) hours as needed for Constipati on. hydrocortis 2019-10 Yes [id number] Apply to Univers one 2.5 % 1-11 affected ity of cream 00:00: area(s) 2 [place] 00 (two) Medical times Branch daily. hydrOXYzine 2019- Yes [id number] 20mg Take 2 Univers 10 mg 1-11 tablets by ity of tablet 00:00: mouth [place] 00 every 8 Medical (eight) Branch hours as needed for Itching or Anxiety. Polyethylen 2019- Yes [id number] 17g Take 1 Univers e Glycol 1-11 Packet by ity of 3350 17 00:00: mouth [place] gram powder 00 every 24 Medi jose c (twenty-fo Branch ur) hours as needed for Constipati on. hydrocortis 2019- Yes [id number] Apply to Univers one 2.5 % 1-11 affected ity of cream 00:00: area(s) 2 [place] (two) Medical times Branch daily. hydrOXYzine 2019-10 Yes [id number] 20mg Take 2 Univers 10 mg 1-11 tablets by ity of tablet 00:00: mouth [place] 00 every 8 Medical (eight) Branch hours as needed for Itching or Anxiety. Polyethylen 2019- Yes [id number] 17g Take 1 Univers e Glycol 1-11 Packet by ity of 3350 17 00:00: mouth [place] gram powder 00 every 24 Medi jose c (twenty-fo Branch ur) hours as needed for Constipati on. hydrocortis 2019-10 Yes [id number] Apply to Univers one 2.5 % 1-11 affected ity of cream 00:00: area(s) 2 [place] (two) Medical times Branch daily. hydrOXYzine 2019-10 Yes [id number] 20mg Take 2 Univers 10 mg 1-11 tablets by ity of tablet 00:00: mouth [place] 00 every 8 Medical (eight) Branch hours as needed for Itching or Anxiety. Polyethylen 2019-10 Yes [id number] 17g Take 1 Univers e Glycol 1-11 Packet by ity of 3350 17 00:00: mouth [place] gram powder 00 every 24 Medi jose c (twenty-fo Branch ur) hours as needed for Constipati on. hydrocortis 2019-10 Yes [id number] Apply to Univers one 2.5 % 1-11 affected ity of cream 00:00: area(s) 2 [place] 00 (two) Medical times Branch daily. hydrOXYzine 2019-10 Yes [id number] 20mg Take 2 Univers 10 mg 1-11 tablets by ity of tablet 00:00: mouth [place] 00 every 8 Medical (eight) Branch hours as needed for Itching or Anxiety. Polyethylen 2019- Yes [id number] 17g Take 1 Univers e Glycol 1-11 Packet by ity of 3350 17 00:00: mouth [place] gram powder 00 every 24 Medi jose c (twenty-fo Branch ur) hours as needed for Constipati on. hydrocortis 2019-10 Yes [id number] Apply to Univers one 2.5 % 1-11 affected ity of cream 00:00: area(s) 2 [place] 00 (two) Medical times Branch daily. hydrOXYzine 2019- Yes [id number] 20mg Take 2 Univers 10 mg 1-11 tablets by ity of tablet 00:00: mouth [place] 00 every 8 Medical (eight) Branch hours as needed for Itching or Anxiety. Polyethylen 2019- Yes [id number] 17g Take 1 Univers e Glycol 1-11 Packet by ity of 3350 17 00:00: mouth [place] gram powder 00 every 24 Medi jose c (twenty-fo Branch ur) hours as needed for Constipati on. hydrocortis 2019- Yes [id number] Apply to Univers one 2.5 % 1-11 affected ity of cream 00:00: area(s) 2 [place] 00 (two) Medical times Branch daily. hydrOXYzine 2019- Yes [id number] 20mg Take 2 Univers 10 mg 1-11 tablets by ity of tablet 00:00: mouth [place] 00 every 8 Medical (eight) Branch hours as needed for Itching or Anxiety. Polyethylen 2019- Yes [id number] 17g Take 1 Univers e Glycol 1-11 Packet by ity of 3350 17 00:00: mouth [place] gram powder 00 every 24 Medi jose c (twenty-fo Branch ur) hours as needed for Constipati on. triamcinolo 2019- 2020- No [id number] Apply to Univers ne 10-23 area(s) 2 ity of acetonide 00:00: 05:59 (two) [place] 0.1 % cream 00 :00 times Medical daily for Branch 14 days. triamcinolo 2019- 2020- No [id number] Apply to Univers ne 10-23 area(s) 2 ity of acetonide 00:00: 05:59 (two) [place] 0.1 % cream 00 :00 times Medical daily for Branch 14 days. triamcinolo 2020- 2020- No [id number] Apply to [facility] ne 10-23 area(s) 2 ity of acetonide 00:00: 05:59 (two) [place] 0.1 % cream 00 :00 times Medical daily for Branch 14 days. KCL 2019- 2020- No 40meq 40 mEq, Univers (KLOR-CON 1-10 11-10 Oral, ONCE ity of M20) tablet 16:15: 16:23 NOW, 1 [place] 40 mEq 00 :00 dose, [facility] 08/22/20 Branch at 1015, Routine HYDROmorpho 2019-10 Yes 1mg 1 mg, Unive rs ne 1-10 Oral, ity of (DILAUDID) 15:07: Q6HPRN, [place] tablet 1 mg 53 Starting [facility] 08/22/20 at 0907, Until Discontinu ed, [...] of acetonide 02:00: dose on [place] (TRIDERM) [facility] Medical 0.1 % cream 08/21/20 at Br anch 2000, Until Discontinu ed, Routine hydrOXYzine 2019-10 Yes 20mg 20 mg, Univ ers (ATARAX) 09 Oral, ity of tablet 20 17:39: Q8HPRN, [place] mg 12 Starting [facility] 08/21/20 at 1139, Until Discontinu ed, Routine, [...] 1 ity o f 09:30: 09:14 dose, [facility] 00 :00 08/21/20 at [facility] 0330, Branch Routine Polyethylen 2019-10 Yes 17g 17 g, [facility] rs e Glycol 10-21 Oral, ity of 3350 08:29: [id number], [place] (MIRALAX) 09 Starting Medica l powder 17 g [facility] 08/21/20 at 0229, Until Discontinu ed, Routine, Constipati on lanolin 2019-10 Yes Topical, Univer s alcohol-mo- 10-21 PRN, ity of w.pet-ceres 08:26: Starting [place] (EUCERIN) 30 [facility] Medical cream 08/21/20 at Branch 0226, [...] 1-3) sotalol 2019-10 2020- No Take by [facility] [place] [facility] s (BETAPACE) 10-21 mouth ity of 240 mg 07:43: 00:00 every 12 [place] tablet 30 :00 (twelve) Medical hours. Branch blood sugar Yes Use to [facility] ers diagnostic 4-25 check ity of (FREESTYLE 00:00: blood [place] LITE 00 glucose Medical STRIPS) 4-5 times Branch strip daily. blood sugar Yes Use to [facility] ers diagnostic 4-25 check ity of (FREESTYLE 00:00: blood [place] LITE 00 glucose Medical STRIPS) 4-5 times Branch strip daily. blood sugar Yes Use to [facility] ers diagnostic 4-25 check ity of (FREESTYLE 00:00: blood [place] LITE 00 glucose Medical STRIPS) 4-5 times Branch strip daily. blood sugar Yes Use to [facility] ers diagnostic 4-25 check ity of (FREESTYLE [...] 2021-08-22 13:00:00 148 mm[Hg] Univer sity of [facility] Diastolic blood 2021-08-22 13:00:00 84 mm[Hg] Unive rsity of [facility] Heart rate 2021-08-22 13:00:00 103 /min [facility] Respiratory rate 2021-08-22 13:00:00 18 /min [facility] Oxygen saturation in 2021-08-22 13:00:00 95 /min University of Arterial blood by [facility] Pulse oximetry [place] Body temperature 2021-08-22 12:22:00 36.72 [facility] Systolic blood 2020-12-17 18:35:00 139 mm[Hg] Univer sity of [facility] Diastolic blood 2020-12-17 18:35:00 87 mm[Hg] Unive rsity of [facility] Heart rate 2020-12-17 18:35:00 110 /min [facility] Body temperature 2020-12-17 18:35:00 37.72 [facility] Respiratory rate 2020-12-17 18:35:00 18 /min [facility] saturation in 2020-12-17 18:35:00 93 /min University of Arterial blood by [facility] Pulse oximetry Branch Body height 2020-12-12 08:21:00 180.3 cm [facility] Body weight 2020-12-12 08:21:00 103.42 kg [facility] BMI 2020-12-12 08:21:00 31.80 kg/m2 [facility] Systolic blood 2020-12-17 18:35:00 139 [...] of Arterial blood by [facility] Pulse oximetry Branch Body height 2020-12-12 08:21:00 [...] of Arterial blood by [facility] Pulse oximetry Branch Body weight 2020-08-21 07:20:00 104.962 kg [facility] BMI 2020-08-21 07:20:00 32.27 kg/m2 [facility] Systolic blood 2020-08-23 19:27:00 140 mm[Hg] Univer sity of pressure [facility] Diastolic blood 2020-08-23 19:27:00 79 mm[Hg] [facility] of pressure [facility] Heart rate 2020-08-23 19:27:00 99 /min [facility] Body temperature 2020-08-23 19:27:00 36 [facility] Respiratory rate 2020-08-23 19:27:00 18 /min [facility] Oxygen saturation in 2020-08-23 19:27:00 93 /min [facility] blood by [facility] Pulse oximetry [place] Body weight 2020-08-21 07:20:00 104.962 kg [facility] BMI 2020-08-21 07:20:00 32.27 kg/m2 [facility] Procedures Procedure Date / Time Performing Clinician Source Performed POCT GLUCOSE (AUTOMATED) 2020-12-17 15:42:00 Favio Harrisonal G [facility] BASIC METABOLIC PANEL 2020-12-17 10:45:00 Paul Bean [facility] (NA, K, CL, CO2, GLUCOSE, [facility] BUN, CREATININE, CA) CBC WITH DIFF 2020-12-17 10:45:00 Paul Bean [facility] POCT GLUCOSE (AUTOMATED) 2020-12-17 02:36:00 Harrison [facility] Uni [facility] XR TIBIA FIBULA 2 VW LEFT 2020-12-16 23:38:00 [facility]SE (AUTOMATED) 2020-12-16 23:20:00 Harrison, [facility]al [facility] GLUCOSE (AUTOMATED) 2020-12-16 20:10:00 Harrison, Premal [facility] PO[facility] GLUCOSE (AUTOMATED) 2020-12-16 14:43:00 [facility] BASIC METABOLIC PANEL 2020-12-16 13:51:00 Paul Bean [facility] (NA, K, CL, CO2, GLUCOSE, [facility] BUN, CREATININE, CA) CBC WITH DIFF 2020-12-16 13:51:00 Paul Bean [facility] POCT GLUCOSE (AUTOMATED) 2020-12-16 04:00:00 Harrison, Premal G Uni versity of [facility] POCT GLUCOSE (AUTOMATED) 2020-12-16 00:14:00 Harrison, Premal G Uni versity [facility] CT CHEST PULMONARY 2020-12-15 22:29:38 Paul Bean [facility] ANGIOGRAM [facility] POCT GLUCOSE (AUTOMATED) 2020-12-15 19:26:00 Harrison, Premal [facility] POCT GLUCOSE (AUTOMATED) 2020-12-15 15:13:00 Krupa, Premal G Uni [facility] HB ECG ROUTINE & RHYTHM 2020-12-15 14:25:27 Cailin Romo [facility] MAGNESIUM 2020-12-15 12:01:00 Paul Bean [facility] BASIC METABOLIC PANEL 2020-12-15 12:01:00 Paul Bean [facility] (NA, K, CL, CO2, GLUCOSE, [facility] BUN, CREATININE, CA) CBC WITH DIFF 2020-12-15 12:01:00 Paul Bean [facility] POCT GLUCOSE (AUTOMATED) 2020-12-15 03:57:00 Harrison, Premal G Uni versity of [facility] POCT GLUCOSE (AUTOMATED) 2020-12-14 23:31:00 Harrison, Premal G Uni versity of [facility] POCT GLUCOSE (AUTOMATED) 2020-12-14 19:08:00 Harrison, Premal G Uni versity of [facility] POCT GLUCOSE (AUTOMATED) 2020-12-14 15:11:00 Harrison, Premal G Uni versity of [facility] POCT GLUCOSE (AUTOMATED) 2020-12-14 02:36:00 Harrison, Premal G Uni versity of [facility] POCT GLUCOSE (AUTOMATED) 2020-12-13 23:32:00 Harrison, Premal G Uni versity of [facility] POCT GLUCOSE (AUTOMATED) 2020-12-13 18:08:00 Harrison, Premal G Uni versity of [facility] BASIC METABOLIC PANEL 2020-12-13 15:39:00 Paul Bean [facility] (NA, K, CL, CO2, GLUCOSE, [facility] BUN, CREATININE, CA) CBC WITH DIFF 2020-12-13 15:39:00 Paul Bean [facility] POCT GLUCOSE (AUTOMATED) 2020-12-13 14:06:00 Harrison, Premal G Uni versity of [facility] POCT GLUCOSE (AUTOMATED) 2020-12-13 03:07:00 Harrison, Premal G Uni versity of [facility] POCT GLUCOSE (AUTOMATED) 2020-12-12 23:52:00 Harrison, Premal G Uni versity of [facility] POCT GLUCOSE (AUTOMATED) 2020-12-12 20:28:00 Harrison, Premal G Uni versity of [facility] POCT GLUCOSE (AUTOMATED) 2020-12-12 19:14:00 Harrison, Premal G Uni versity of [facility] POCT GLUCOSE (AUTOMATED) 2020-12-12 14:33:00 Harrison, Premal G Uni versity of [facility] MAGNESIUM 2020-12-12 08:58:00 Paul Bean [facility] BASIC METABOLIC PANEL 2020-12-12 08:58:00 Paul Bean [facility] (NA, K, CL, CO2, GLUCOSE, [facility] BUN, CREATININE, CA) CBC WITH DIFF 2020-12-12 08:58:00 Paul Bean [facility] US ABDOMEN LIMITED 2020-12-12 06:32:26 Paul Bean [facility] POCT GLUCOSE (AUTOMATED) 2020-12-12 03:40:00 Harrison, Premal G Uni versity of [facility] POCT GLUCOSE (AUTOMATED) 2020-12-12 00:06:00 Harrison, Premal G Uni versity of [facility] XR HIPS 3 VW LEFT 2020-12-11 20:20:00 Paul Bean [facility] HB ECG ROUTINE & RHYTHM 2020-12-11 20:04:[address] [facility] STRIP [facility] VITAMIN B6, PLASMA 2020-12-11 19:17:00 [facility] POCT GLUCOSE (AUTOMATED) 2020-12-11 19:06:00 Vika Harrison [facility] CREATINE KINASE 2020-12-11 18:22:00 Parvez [facility] VITAMIN B12, LEVEL 2020-12-11 18:22:00 Vikas [facility] FOLATE 2020-12-11 18:22:00 [facility] THYROID STIMULATING 2020-12-11 18:22:00 Demetrius [facility] HORMONE [facility] PROCALCITONIN 2020-12-11 18:22:00 Vikas [facility] VITAMIN B1 (THIAMINE), 2020-12-11 18:22:00 [facility] HEAD WO CONTRAST 2020-12-11 14:07:35 Sweetie Stout [facility] URINALYSIS 2020-12-11 13:44:00 Singer [facility] URINE CULTURE 2020-12-11 13:44:00 Singer [facility] COVID-19 (ID NOW RAPID 2020-12-11 12:31:00 Paco Lacey [facility] TESTING) Medical Branch LAB ONLY COVID 2020-12-11 12:31:00 Singer [facility] INTERPRETATION [facility] XR CHEST 1 VW 2020-12-11 12:07:24 Singer [facility] BLOOD CULTURE SCREEN 2020-12-11 12:02:00 Paco Lacey [facility] MAGNESIUM 2020-12-11 12:02:00 Vikas [facility] FERRITIN SERUM 2020-12-11 12:02:00 Paul Bean [facility] Kaley [facility] COMP. METABOLIC PANEL 2020-12-11 12:02:00 Singer [facility] ([id number]) [facility] CBC WITH DIFF 2020-12-11 12:02:00 Singer [facility] LACTIC ACID WHOLE BLOOD 2020-12-11 12:02:00 Singer Paco [facility] BLOOD CULTURE SCREEN 2020-12-11 11:42:00 Singer Paco [facility] EMERGENCY SERVICES 2020-12-11 06:01:00 Doctor Unassigned, [facility] AGREEMENTS AND [place] [facility] [place] AUTHORIZATIONS HOSPITAL ADMISSION 2020-12-11 06:01:00 Doctor Unaowen, [facility] Name Medical [place] HOME HEALTH - OTHER 2020-11-11 06:01:00 Doctor Tabitha [facility] Name Medical [place] HOME HEALTH - OTHER 2020-10-30 06:01:00 Doctor Unaowen [facility] Name [facility] [place] EXTERNAL PROVIDER RECORDS 2020-09-01 06:01:00 Doctor Tabitha, [facility] Name [facility] POCT GLUCOSE (AUTOMATED) 2020-08-23 18:09:00 Kelly Washington [facility] POCT GLUCOSE (AUTOMATED) 2020-08-23 14:14:00 Kelly Washington [facility] MAGNESIUM 2020-08-23 11:18:00 [place] [facility] BASIC METABOLIC PANEL 2020-08-23 11:18:00 [place] [facility] (NA, K, CL, CO2, GLUCOSE, Medica l Branch BUN, CREATININE, CA) CBC WITH DIFF 2020-08-23 11:18:00 [place] [facility] POCT GLUCOSE (AUTOMATED) 2020-08-23 10:21:00 Kelly Washington [facility] POCT GLUCOSE (AUTOMATED) 2020-08-23 05:55:00 Kelly Washington [facility] POCT GLUCOSE (AUTOMATED) 2020-08-23 03:00:00 Stefania [facility] ([facility]OM[facility]) 2020-08-22 23:38:00 Bety Washingtonmarie Elias versity [facility] POCT GLUCOSE (AUTOMATED) 2020-08-22 19:04:00 Bety Washingtonmarie [facility] POCT GLUCOSE (AUTOMATED) 2020-08-22 13:49:00 Kelly Washington Jada versity [facility] MAGNESIUM 2020-08-22 10:10:00 [facility] 2020-08-22 10:10:00 Aguila Melchor [facility] ([id number]) (ALB,T.PRO,BILI Medical Branch T,BU/BC,ALT,AST,ALK PHOS) BASIC METABOLIC PANEL 2020-08-22 10:10:00 [facility] (NA, K, CL, CO2, GLUCOSE, Medica l Branch BUN, CREATININE, CA) LIPID PANEL ([id number])(TOTAL 2020-08-22 10:10:00 [place], [facility] CHOLESTEROL, Medical [place] TRIGLYCERIDES, HDL) CBC WITH DIFF 2020-08-22 10:10:00 [facility] POCT GLUCOSE (AUTOMATED) 2020-08-22 10:10:00 Bety Washingtonmarie Elisa [facility] POCT GLUCOSE (AUTOMATED) 2020-08-22 07:13:00 Kelly Washington Jada versity [facility] POCT GLUCOSE (AUTOMATED) 2020-08-22 02:24:00 Bety Washingtonmarie Elias versity [facility] POCT GLUCOSE (AUTOMATED) 2020-08-21 23:40:00 Kelly Washington Jada versity of [facility] POCT GLUCOSE (AUTOMATED) 2020-08-21 18:10:00 Kelly Washington Jada versity [facility] POCT GLUCOSE (AUTOMATED) 2020-08-21 13:39:00 Kelly Washington Jada versity [facility] ETHANOL 2020-08-21 12:35:00 [facility] ACTIV[facility] PARTIAL 2020-08-21 12:35:[address] [facility] GALV ONLY - SYPHILIS 2020-08-21 12:35:00 Stefania [facility] IGG/IGM [facility] LACTATE DEHYDROGENASE 2020-08-21 10:09:00 Ramya, [facility] GALV/CLC ONLY - URINE 2020-08-21 10:09:00 [facility] DRUG (IMMUNOASSAY) - 4 ER Medica l Branch PANEL URINALYSIS 2020-08-21 10:09:00 Ramya, [facility] URINE CULTURE 2020-08-21 10:09:00 [place], [facility] PROCALCITONIN 2020-08-21 10:09:00 Ramya, [facility] POCT GLUCOSE (AUTOMATED) 2020-08-21 09:41:00 Stefania Kelly [facility] PROTHROMBIN TIME / INR 2020-08-21 08:32:00 [place], [facility] ACTIVATED PARTIAL 2020-08-21 08:32:00 Ramya, [facility] C-REACTIVE PROTEIN 2020-08-21 08:31:00 [place], [facility] HEPATIC FUNCTION PANEL 2020-08-21 08:31:00 [place], [facility] ([id number]) (ALB,T.PRO,BILI Medical Branch T,BU/BC,ALT,AST,ALK PHOS) BASIC METABOLIC PANEL 2020-08-21 08:31:00 Ramya, [facility] (NA, K, CL, CO2, GLUCOSE, [facility] BUN, CREATININE, CA) SEDIMENTATION RATE 2020-08-21 08:31:00 Ramya, [facility] CBC WITH DIFF 2020-08-21 08:31:00 Ramya, [facility] GLYCOSYLATED HEMOGLOBIN 2020-08-21 08:31:00 [place], [facility] (A1C) Medical Branch HIV 1/2 AG-AB WITH REFLEX 2020-08-21 08:31:00 Kelly [place] [facility] COVID-[facility] (ID NOW RAPID 2020-08-21 08:20:00 Haily Bui [facility] TESTING) Medical Branch LAB ONLY COVID 2020-08-21 08:20:00 [place] [facility] [place] INTERPRETATION [facility] Encounters Start End Encounter Admission Attending Care Care Encounter Source Date/Time Date/Time Type Type Clinicians Facility Department ID 2020-08-21 Inpatient U STEFANIA [facility] [id number] Univers 01:07:00 KELLY brandenana [facility] 2021-08-22 2021-08-22 [facility] [id number] Univers 06:21:00 08:02:00 SWEETIE cantu [facility] 2021-08-22 2021-08-22 Emergency [facility] [id number] Univers 06:21:00 08:02:00 Sweetie LOTT [id number] i ty of [place] [id number] [facility] 084 Branch 2021-08-09 2021-08-09 Outpatient JACQUELYN HAINES [facility] [id number] [facility] 10:27:03 10:27:03 ADRIANA lopez of Medicin e 2020-12-28 2020-12-28 [facility]phone [facility] [id number] 00:00:00 00:00:00 Calvin H PRIMARY [id number] CARE 4.2.7.2.686 PAVILLION [id number] 220 2020-12-28 2020-12-28 Telephone [facility] [id number] Univers 00:00:00 00:00:00 Calvin H PRIMARY [id number] it y [place] [id number] Ok dical 220 Branch 2020-12-19 2020-12-19 Transition Tuan Peters 1.2.840.114 [id number] 00:00:00 00:00:00 of Care Ruchi Braswell [id number] [place] 4.2.7.2.686 [id number] 403 2020-12-19 2020-12-19 Transition Tuan Peters 1.2.840.114 [id number] Univers 00:00:00 00:00:00 of Care Ruchi Braswell [id number] [place] [id number] [facility] 403 Branch 2020-12-11 2020-12-17 [facility] Paco Lacey 1.2.840.1 [id number] 05:11:00 16:00:00 Encounter Vika Harrison [place] [id number] [facility] 4.2.7.2.686 [id number] [facility] 2020-12-11 2020-12-17 [facility] Paco Lacey 1.2.840.1 [id number] [facility] 05:11:00 16:00:00 Encounter Vika Harrison Monique [id number] ity [facility] 4.2.7.[address] [place] [address] [id number] [facility] 096 Branch 2020-12-11 2020-12-17 Inpatient X [facility] [id number] Univers 05:11:00 16:00:00 pepe [facility] 2020-11-16 2020-11-16 Emergency X [facility] ERT [id number] [facility] 09:31:00 09:31:00 PACO cantu [facility] 2020-11-11 2020-11-11 Orders Doctor CUI 1.2.840.114 [id number] 00:00:00 00:00:00 Only UnassignedMONIQUE 350.1.13.10 [place] [facility] 4.2.7.2.686 [id number] 009 2020-11-11 2020-11-11 Orders Doctor CUI 1.2.840.114 [id number] [facility] 00:00:00 00:00:00 Only Unassigned, MONIQUE 350.1.13.10 ity of [place] [facility] 4.2.7.2.686 Jeff as [id number] [address] 2020-11-07 2020-11-07 [facility] [id number] 00:00:00 00:00:00 Angi Lott 350.1.13.10 [place] 4.2.7.2.686 Professio [id number] [address] 2020-11-07 2020-11-07 Telephone [facility] [id number] [facility] 00:00:00 00:00:00 Angi Lott 350.1.13.10 ity of [place] Profess[place] [id number] Ok dic[address] 2020-10-30 2020-10-30 Orders Doctor BASILIA 1.2.840.114 [id number] 00:00:00 00:00:00 Only Unassigned, MONIQUE 350.1.13.10 [place] [facility] 4.2.7.2.686 [id number] [facility] 2020-10-30 2020-10-30 Orders Doctor BASILIA 1.2.840.114 [id number] [facility] 00:00:00 00:00:00 Only Unassigned, MONIQUE 350.1.13.10 ity of [place] [facility] 4.2.7.2.686 Jeff as [id number] [address] 2020-09-26 2020-09-26 Telephone Eliot [facility] 1.2.840.114 [id number] 00:00:00 00:00:00 [facility] 350.1.13.10 CLINICS 4.2.7.2.686 [id number] [facility] 2020-09-26 2020-09-26 Telephone Eliot [facility] 1.2.840.114 [id number] [facility] 00:00:00 00:00:00 [facility] 350.1.13.10 i ty of CL[place] [id number] [address] 2020-09-01 2020-09-01 Orders Doctor BASILIA 1.2.840.114 [id number] 00:00:00 00:00:00 Only Unassigned, MONIQUE 350.1.13.10 [place] [facility] 4.2.7.2.686 [id number] 009 2020-09-01 2020-09-01 Orders Doctor BASILIA 1.2.840.114 [id number] Univers 00:00:00 00:00:00 Only Unassigned, MONIQUE 350.1.13.10 ity of [place] [facility] 4.2.7.2.686 Jeff as [id number] [facility] 009 Branch 2020-08-25 2020-08-25 Transition Tuan Peters 1.2.840.114 [id number] 00:00:00 00:00:00 of Care Ruchi Braswell 350.1.13.10 [place] 4.2.7.2.686 [id number] 403 2020-08-25 2020-08-25 Transition Tuan Peters 1.2.840.114 [id number] Univers 00:00:00 00:00:00 of Care Ruchi Braswell 350.1.13.10 [place] [id number] [facility] 403 [place] 2020-08-21 2020-08-23 [facility] 1.2.840.114 [id number] 01:07:00 18:35:00 Encounter Kelly Monique 350.1.13.10 [facility] 4.2.7.2.686 [id number] [facility] 2020-08-21 2020-08-23 [facility] 1. 2.840.114 [id number] [facility] 01:07:00 18:35:00 Encounter Mukul Gallardo 350.1.13. 10 ity of [facility] 4.2.7.2.686 Jeff as [id number] [address] Results Test Description Test Time Test Comments Results Result Comments Source POCT GLUCOSE (AUTOMATED) 2020-12-17 15:43:35 Test Item Value Reference Range Interpretation Comme nts POCT GLU (test code = 7515831685) 129 mg/dL 70-110 H Lab Interpretation (test code = 76675-4) Abnormal [facility] (NA, K, CL, CO2, GLUCOSE, BUN, CREATININE, CA)2020-12-17 11:45:07 Test Item Value Reference Range Interpretation Comments NA (test code = 137 mmol/L 135-145 7936933915) K (test code = 3.5 mmol/L 3.5-5.0 9409740762) CL (test code = 103 mmol/L 98-108 0859371080) CO2 TOTAL (test code = 26 mmol/L 23-31 7359757862) AGAP (test code = 2-16 8009931677) BUN (test code = 11 mg/dL 7-23 8952915199) GLUCOSE (test code = 175 mg/dL 70-110 H 9103781725) CREATININE (test code = 0.62 mg/dL 0.60-1.25 3135156398) CALCIUM (test code = 9.0 mg/dL 8.6-10.6 6144186203) eGFR Calculation mL/min/1.73m2 (Non-) (test code = 8982311078) eGFR Calculation mL/min/1.73m2 () (test code = 2817795215) JAMES (test code = JAMES) Association of [...] tests). Lab Interpretation Abnormal (test code = 01148-6) [facility] WITH [id number] 11:07:27 Test Item Value Reference Range Interpretation [...] RDW-SD (test code = 45.2 fL 38.5-51.6 15567-7) RDW-CV (test code = 16.9 % 12.1-15.4 H 788-0) PLT (test code = See_Comment H [Automated 777-3) message] The sy stem which generated this result transmitted reference range : 150 - 328 10*3/ ?L. The reference r torito was not used to interpret this result as normal/abnormal . MPV (test code = 8.1 fL 9.8-13.0 L 47548-3) NRBC/100 WBC (test See_Comment [Automat ed code = 1774224655) message] The system which generated this result transmitted reference range : 0.0 - 10.0 /100 WBCs. The refer ence range was not u sed to interpret th is result as normal/abnormal . NRBC x10^3 (test code <0.01 See_Comment [Auto mated = 8370399050) message] The s ystem which generated this result transmitted reference range : 10*3/?L. The reference range was not used to interpret this result as normal/abnormal . GRAN MAT (NEUT) % 72.8 % (test code = 770-8) IMM GRAN % (test code 0.60 % = 2676571317) LYMPH % (test code = 18.4 % 736-9) MONO % (test code = 5.7 % 5905-5) EOS % (test code = 1.8 % 713-8) BASO % (test code = 0.7 % 706-2) GRAN MAT x10^3(ANC) 8.23 10*3/uL 1.99-6.95 H (test code = 9411844334) IMM GRAN x10^3 (test 0.07 10*3/uL 0.00-0.06 H code = 1980079030) LYMPH x10^3 (test code 2.08 10*3/uL 1.09-3.23 = 731-0) MONO x10^3 (test code 0.65 10*3/uL 0.36-1.02 = 742-7) EOS x10^3 (test code = 0.20 10*3/uL 0.06-0.53 711-2) BASO x10^3 (test code 0.08 10*3/uL 0.01-0.09 = 704-7) Lab Interpretation Abnormal (test code = 96154-0) [facility]2020-[facility]17 06:03:38 Test Item Value Reference Range Interpretation Comments POCT GLU (test code = 9005204077) 75 mg/dL 70-110 Lab Interpretation (test code = Normal 18335-9) [facility], [id number] 00:01:00 Test Item Value Reference Range Interpretation Comments VIT B6 (test code = 13.1 nmol/L 20.0-125.0 L INTERPRE TIVE 40637-5) INFORMATION: Vi tamin B6 (Pyridoxal 5-Phosphate) Pyridoxal [...] intended for cl inical purposes.Perfor med By: [email or web address] [place] [address] [id number] Director: Namrata Klein MD Lab Interpretation Abnormal (test code = 35516-6) [facility] TIBIA FIBULA 2 VW [id number] 23:57:09 Tricompartmental knee joint osteoarthrosis.XR TIBIA FIBULA [...] Interpretation Comments POCT GLU (test code = 0012360797) 114 mg/dL 70-110 H Lab Interpretation (test code = Abnormal 95817-7) [facility] GLUCOSE (AUTOMATED)2020-12-16 20:12:00 Test Item Value Reference Range Interpretation Comments POCT GLU (test code = 5700740231) 105 mg/dL 70-110 Lab Interpretation (test code = Normal 97389-3) [facility] GLUCOSE (AUTOMATED)2020-12-16 14:44:00 Test Item Value Reference Range Interpretation Comments POCT GLU (test code = 7283773946) 153 mg/dL 70-110 H Lab Interpretation (test code = Abnormal 65617-4) [facility] METABOLIC PANEL (NA, K, CL, CO2, GLUCOSE, BUN, CREATININE, CA)2020-12-16 14:23:00 Test Item Value Reference Range Interpretation Comments NA (test code = 138 mmol/L 135-145 8161622671) K (test code = 3.4 mmol/L 3.5-5.0 L 2658180489) CL (test code = 100 mmol/L 98-108 7317089697) CO2 TOTAL (test code = 31 mmol/L 23-31 0803916591) AGAP (test code = 2-16 5836173831) BUN (test code = 11 mg/dL 7-23 0389374776) GLUCOSE (test code = 162 mg/dL 70-110 H 4276543644) CREATININE (test code = 0.64 mg/dL 0.60-1.25 3771593360) CALCIUM (test code = 8.9 mg/dL 8.6-10.6 9380290826) eGFR Calculation mL/min/1.73m2 (Non-) (test code = 4523911986) eGFR Calculation mL/min/1.73m2 () (test code = 8330813036) JAMES (test code = JAMES) Association of [...] tests). Lab Interpretation Abnormal (test code = 88520-0) [facility] WITH [id number] 14:05:00 Test Item Value Reference Range Interpretation [...] RDW-SD (test code = 45.4 fL 38.5-51.6 50054-0) RDW-CV (test code = 17.0 % 12.1-15.4 H 788-0) PLT (test code = See_Comment H [Automated 777-3) message] The sy stem which generated this result transmitted reference range : 150 - 328 10*3/ ?L. The reference r torito was not used to interpret this result as normal/abnormal . MPV (test code = 8.0 fL 9.8-13.0 L 34276-2) NRBC/100 WBC (test See_Comment [Automat ed code = 5589425038) message] The system which generated this result transmitted reference range : 0.0 - 10.0 /100 WBCs. The refer ence range was not u sed to interpret th is result as normal/abnormal . NRBC x10^3 (test code <0.01 See_Comment [Auto mated = 2426565777) message] The s ystem which generated this result transmitted reference range : 10*3/?L. The reference range was not used to interpret this result as normal/abnormal . GRAN MAT (NEUT) % 70.0 % (test code = 770-8) IMM GRAN % (test code 0.70 % = 1202470784) LYMPH % (test code = 20.5 % 736-9) MONO % (test code = 7.1 % 5905-5) EOS % (test code = 1.0 % 713-8) BASO % (test code = 0.7 % 706-2) GRAN MAT x10^3(ANC) 9.44 10*3/uL 1.99-6.95 H (test code = 9495045372) IMM GRAN x10^3 (test 0.09 10*3/uL 0.00-0.06 H code = 5566835408) LYMPH x10^3 (test code 2.76 10*3/uL 1.09-3.23 = 731-0) MONO x10^3 (test code 0.96 10*3/uL 0.36-1.02 = 742-7) EOS x10^3 (test code = 0.13 10*3/uL 0.06-0.53 711-2) BASO x10^3 (test code 0.10 10*3/uL 0.01-0.09 H = 704-7) Lab Interpretation Abnormal (test code = 07819-3) [facility] [id number] 13:01:00 Test Item Value Reference Range Interpretation Comments Blood Culture-Aerobic No organisms No growth Previo us (test code = 76844-0) isolated prelim inary verified result was Culture In Progress on 12/11/2020 at 100 1 CSTPrevious preliminary verified result was No growth a t 24 hours on 12/12/2020 at 070 1 CSTPrevious preliminary verified result was No growth a t 48 hours on 12/13/2020 at 070 1 CSTPrevious preliminary verified result was No growth a t 72 hours on 12/14/2020 at 070 1 COST MANAGER Blood No organisms No growth Previous Culture-Anaerobic isolated preliminar y (test code = 41275-6) verifi ed result was Culture In Progress on 12/11/2020 at 100 1 CSTPrevious preliminary verified result was No growth a t 24 hours on 12/12/2020 at 070 1 CSTPrevious preliminary verified result was No growth a t 48 hours on 12/13/2020 at 070 1 CSTPrevious preliminary verified result was No growth a t 72 hours on 12/14/2020 at 070 1 COST MANAGER Lab Interpretation Normal (test code = 50111-5) [facility] Culture - Peripheral # [id number] 13:01:00 Test Item Value Reference Range Interpretation Comments Blood Culture-Aerobic No organisms No growth Previo us (test code = 67686-5) isolated prelim inary verified result was Culture In Progress on 12/11/2020 at 100 1 CSTPrevious preliminary verified result was No growth a t 24 hours on 12/12/2020 at 070 1 CSTPrevious preliminary verified result was No growth a t 48 hours on 12/13/2020 at 070 1 CSTPrevious preliminary verified result was No growth a t 72 hours on 12/14/2020 at 070 1 COST MANAGER Blood No organisms No growth Previous Culture-Anaerobic isolated preliminar y (test code = 96454-6) verifi ed result was Culture In Progress on 12/11/2020 at 100 1 CSTPrevious preliminary verified result was No growth a t 24 hours on 12/12/2020 at 070 1 CSTPrevious preliminary verified result was No growth a t 48 hours on 12/13/2020 at 070 1 CSTPrevious preliminary verified result was No growth a t 72 hours on 12/14/2020 at 070 1 COST MANAGER Lab Interpretation Normal (test code = 37055-9) [facility] GLUCOSE (AUTOMATED)2020-12-16 04:01:00 Test Item Value Reference Range Interpretation Comments POCT GLU (test code = 9981991517) 156 mg/dL 70-110 H Lab Interpretation (test code = Abnormal 32595-0) [facility]2020-12-16 00:24:00 Test Item Value Reference Range Interpretation Comments POCT GLU (test code = 8087093921) 115 mg/dL 70-110 H Lab Interpretation (test code = Abnormal 05003-0) [facility] CHEST PULMONARY [id number] 23:34:55No pulmonary emboli. No interval change in [...] Interpretation Comments POCT GLU (test code = 2333380584) 140 mg/dL 70-110 H Lab Interpretation (test code = Abnormal 68884-6) [facility] 15:26:00 Test Item Value Reference Range Interpretation Comments MAGNESIUM (test code = 2671425555) 2.2 mg/dL 1.7-2.4 Lab Interpretation (test code = Normal 52697-9) [facility] GLUCOSE (AUTOMATED)2020-12-15 15:15:00 Test Item Value Reference Range Interpretation Comments POCT GLU (test code = 3581848765) 181 mg/dL 70-110 H Lab Interpretation (test code = Abnormal 20714-8) [facility] METABOLIC PANEL (NA, K, CL, CO2, GLUCOSE, BUN, CREATININE, CA)2020-12-15 13:07:00 Test Item Value Reference Range Interpretation Comments NA (test code = 136 mmol/L 135-145 1361708309) K (test code = 3.6 mmol/L 3.5-5.0 2920129228) CL (test code = 96 mmol/L 98-108 L 6107796771) CO2 TOTAL (test code = 29 mmol/L 23-31 0770139276) AGAP (test code = 2-16 8918540609) BUN (test code = 12 mg/dL 7-23 6165713945) GLUCOSE (test code = 183 mg/dL 70-110 H 5550095118) CREATININE (test code = 0.70 mg/dL 0.60-1.25 4405979944) CALCIUM (test code = 9.2 mg/dL 8.6-10.6 2387117720) eGFR Calculation mL/min/1.73m2 (Non-) (test code = 4769200765) eGFR Calculation mL/min/1.73m2 () (test code = 2236903120) JAMES (test code = JAMES) Association of [...] tests). Lab Interpretation Abnormal (test code = 43890-0) [facility] WITH [id number] 12:32:00 Test Item Value Reference Range Interpretation Comments WBC (test code = See_Comment H [Automated 0490-2) message] The system which generated this result transmit ronan reference range : 4.20 - 10.70 10*3/?L. The reference range was not used to interpret this result as normal/abnormal . RBC (test code = See_Comment H [Automated 469-8) message] The system which generated this result [...] RDW-SD (test code = 44.4 fL 38.5-51.6 31153-2) RDW-CV (test code = 17.7 % 12.1-15.4 H 788-0) PLT (test code = See_Comment H [Automated 777-3) message] The system which generated this result transmit ronan reference range : 150 - 328 10*3/ ?L. The reference range was not u sed to interpret th is result as normal/abnormal . MPV (test code = 8.1 fL 9.8-13.0 L 18087-0) NRBC/100 WBC (test See_Comment [Automat ed code = 5202491629) message] The system which generated this result transmit ronan reference range : 0.0 - 10.0 /100 WBCs. The reference range was not used to interpret this result as normal/abnormal . NRBC x10^3 (test code <0.01 See_Comment [Auto mated = 5060563904) message] The system which generated this result transmit ronan reference range : 10*3/?L. The reference range was not used to interpret this result as normal/abnormal . GRAN MAT (NEUT) % 74.5 % (test code = 770-8) IMM GRAN % (test code 0.70 % = 1909160366) LYMPH % (test code = 17.4 % 736-9) MONO % (test code = 6.8 % 5905-5) EOS % (test code = 0.2 % 713-8) BASO % (test code = 0.4 % 706-2) GRAN MAT x10^3(ANC) 11.99 10*3/uL 1.99-6.95 H (test code = 5583416895) IMM GRAN x10^3 (test 0.11 10*3/uL 0.00-0.06 H code = 2224798517) LYMPH x10^3 (test code 2.80 10*3/uL 1.09-3.23 = 731-0) MONO x10^3 (test code 1.10 10*3/uL 0.36-1.02 H = 742-7) EOS x10^3 (test code = 0.03 10*3/uL 0.06-0.53 L 711-2) BASO x10^3 (test code 0.06 10*3/uL 0.01-0.09 = 704-7) Lab Interpretation Abnormal (test code = 20685-2) [facility] GLUCOSE (AUTOMATED)2020-12-15 04:16:00 Test Item Value Reference Range Interpretation Comments POCT GLU (test code = 0069890341) 200 mg/dL 70-110 H Lab Interpretation (test code = Abnormal 67164-8) [facility]IT[facility] (THIAMINE), WHOLE [id number] 00:30:00 Test Item Value Reference Range Interpretation Comments Vitamin B1, Whole 136 nmol/L 70-180 INTERPRETI VE INFORMATION: Blood (test code = Vitamin B 1, Whole Blood 54220-0) This assay júnior ures the concentration o [...] clinical purposes.Perfor med By: [facility] [address] [place], [place] [address]D aboratory Director: Namrata Klein MD [facility] GLUCOSE (AUTOMATED)2020-12-14 23:35:00 Test Item Value Reference Range Interpretation Comments POCT GLU (test code = 0649345718) 151 mg/dL 70-110 H Lab Interpretation (test code = Abnormal 66295-9) [facility] GLUCOSE (AUTOMATED)2020-12-14 19:19:00 Test Item Value Reference Range Interpretation Comments POCT GLU (test code = 4030443024) 193 mg/dL 70-110 H Lab Interpretation (test code = Abnormal 84118-2) [facility] GLUCOSE (AUTOMATED)2020-12-14 15:22:00 Test Item Value Reference Range Interpretation Comments POCT GLU (test code = 4840826808) 221 mg/dL 70-110 H Lab Interpretation (test code = Abnormal 13024-6) [facility] GLUCOSE (AUTOMATED)2020-12-14 02:37:00 Test Item Value Reference Range Interpretation Comments POCT GLU (test code = 8082617407) 210 mg/dL 70-110 H Lab Interpretation (test code = Abnormal 47394-9) [facility] GLUCOSE (AUTOMATED)2020-12-13 23:33:00 Test Item Value Reference Range Interpretation Comments POCT GLU (test code = 7213285332) 182 mg/dL 70-110 H Lab Interpretation (test code = Abnormal 10237-3) [facility] GLUCOSE (AUTOMATED)2020-12-13 18:09:00 Test Item Value Reference Range Interpretation Comments POCT GLU (test code = 8593611851) 150 mg/dL 70-110 H Lab Interpretation (test code = Abnormal 30443-4) [facility] METABOLIC PANEL (NA, K, CL, CO2, GLUCOSE, BUN, CREATININE, CA)2020-12-13 16:27:00 Test Item Value Reference Range Interpretation Comments NA (test code = 136 mmol/L 135-145 8776399421) K (test code = 3.7 mmol/L 3.5-5.0 1477515997) CL (test code = 96 mmol/L 98-108 L 7110643152) CO2 TOTAL (test code = 29 mmol/L 23-31 0196348116) AGAP (test code = 2-16 9824279251) BUN (test code = 6 mg/dL 7-23 L 2386322525) GLUCOSE (test code = 212 mg/dL 70-110 H 7110188411) CREATININE (test code = 0.61 mg/dL 0.60-1.25 5085425316) CALCIUM (test code = 9.5 mg/dL 8.6-10.6 7095892295) eGFR Calculation mL/min/1.73m2 (Non-) (test code = 1561285163) eGFR Calculation mL/min/1.73m2 () (test code = 5269973415) JAMES (test code = JAMES) Association of [...] tests). Lab Interpretation Abnormal (test code = 49753-0) [facility] WITH [id number] 16:10:00 Test Item Value Reference Range Interpretation [...] RDW-SD (test code = 43.3 fL 38.5-51.6 67774-0) RDW-CV (test code = 16.2 % 12.1-15.4 H 788-0) PLT (test code = See_Comment H [Automated 777-3) message] The sy stem which generated this result transmitted reference range : 150 - 328 10*3/ ?L. The reference r torito was not used to interpret this result as normal/abnormal . MPV (test code = 8.2 fL 9.8-13.0 L 38408-2) NRBC/100 WBC (test See_Comment [Automat ed code = 6615210134) message] The system which generated this result transmitted reference range : 0.0 - 10.0 /100 WBCs. The refer ence range was not u sed to interpret th is result as normal/abnormal . NRBC x10^3 (test code <0.01 See_Comment [Auto mated = 8439814963) message] The s ystem which generated this result transmitted reference range : 10*3/?L. The reference range was not used to interpret this result as normal/abnormal . GRAN MAT (NEUT) % 86.2 % (test code = 770-8) IMM GRAN % (test code 0.70 % = 5386482218) LYMPH % (test code = 10.2 % 736-9) MONO % (test code = 2.5 % 5905-5) EOS % (test code = 0.1 % 713-8) BASO % (test code = 0.3 % 706-2) GRAN MAT x10^3(ANC) 9.61 10*3/uL 1.99-6.95 H (test code = 4891393399) IMM GRAN x10^3 (test 0.08 10*3/uL 0.00-0.06 H code = 6710825536) LYMPH x10^3 (test code 1.14 10*3/uL 1.09-3.23 = 731-0) MONO x10^3 (test code 0.28 10*3/uL 0.36-1.02 L = 742-7) EOS x10^3 (test code = <0.03 0.06-0.53 L 711-2) BASO x10^3 (test code 0.03 10*3/uL 0.01-0.09 = 704-7) Lab Interpretation Abnormal (test code = 67203-3) [facility] 14:16:00 Test Item Value Reference Range Interpretation Comments POCT GLU (test code = 6777896641) 236 mg/dL 70-110 H Lab Interpretation (test code = Abnormal 44685-0) [facility] COVID OFAMTRYMINAFDS0741-99-02 04:58:00COVID DMT InterpretationInterpretation/Recommendations: Molecular NAAT Tests for [...] COVID-19 testing the patient has had at [facility], including molecular NAAT testing (more commonly known as PCR testing and Rapid ID Now testing) and antibody testing. It does not take into account any testingthat a patient has had outside of the [facility] medical record. [facility] LABORATORY SERVICESCOVID RrbvwomTJEK-CaJ-8 Rapid ID NOW (no units) ? ? Date ? Value ? 12/11/2020 ? Not Detected ? ? ? 11/16/2020 ? Not Detected ? ? ? 08/21/2020 ? Not Detected ? [facility] 2020-12-13 03:11:00 Test Item Value Reference Range Interpretation Comments POCT GLU (test code = 2465034992) 171 mg/dL 70-110 H Lab Interpretation (test code = Abnormal 00293-3) [facility] GLUCOSE (AUTOMATED)2020-12-13 00:00:00 Test Item Value Reference Range Interpretation Comments POCT GLU (test code = 6143769009) 118 mg/dL 70-110 H Lab Interpretation (test code = Abnormal 31623-5) [facility] GLUCOSE (AUTOMATED)2020-12-12 20:29:00 Test Item Value Reference Range Interpretation Comments POCT GLU (test code = 6394994229) 173 mg/dL 70-110 H Lab Interpretation (test code = Abnormal 03562-3) [facility]EN [id number] 19:56:17 1. ?Hepatic steatosis. However, limited evaluation [...] main portal veinwasevaluated with color Doppler imaging. Contact Worker images were obtainedfor the record. COMPARISON: [...] portal vein wasevaluated with color Doppler imaging. Contact Worker images wereobtainedfor the record.COMPARISON: Ultrasound abdomen 11/17/2028. [...] study and agree with the abovereport.[facility]2020-12-12 19:24:00 Test Item Value Reference Range Interpretation Comments POCT GLU (test code = 9224159191) 230 mg/dL 70-110 H Lab Interpretation (test code = Abnormal 68513-8) [facility] CHEST 1 [id number] 15:16:46 Low lung volumes with mild perihilar [...] study and agree with theabove report.[facility]2020-12-12 14:34:00 Test Item Value Reference Range Interpretation Comments POCT GLU (test code = 1015064277) 225 mg/dL 70-110 H Lab Interpretation (test code = Abnormal 61818-9) [facility]INE [id number] 13:28:00 Test Item Value Reference Range Interpretation Comments URINE CULTURE (test < 10,000 CFU/mL mixed code = 630-4) aerobic organisms - suggests endogenous microbial contamination [facility] (NA, K, CL, CO2, GLUCOSE, BUN, CREATININE, CA)2020-12-12 10:05:00 Test Item Value Reference Range Interpretation Comments NA (test code = 136 mmol/L 135-145 0817729896) K (test code = 3.5 mmol/L 3.5-5.0 5143468856) CL (test code = 100 mmol/L 98-108 3281496969) CO2 TOTAL (test code = 31 mmol/L 23-31 3198523631) AGAP (test code = 2-16 9108791858) BUN (test code = 7 mg/dL 7-23 6154019681) GLUCOSE (test code = 259 mg/dL 70-110 H 5882772563) CREATININE (test code = 0.63 mg/dL 0.60-1.25 6484692830) CALCIUM (test code = 8.5 mg/dL 8.6-10.6 L 9461951708) eGFR Calculation mL/min/1.73m2 (Non-) (test code = 1577899143) eGFR Calculation mL/min/1.73m2 () (test code = 7680574458) JAMES (test code = JAMES) Association of [...] tests). Lab Interpretation Abnormal (test code = 24155-0) [facility] AllenMagnesium [id number] 10:05:00 Test Item Value Reference Range Interpretation Comments MAGNESIUM (test code = 0745211232) 1.9 mg/dL 1.7-2.4 Lab Interpretation (test code = Normal 83888-6) [facility] with [id number] 09:48:00 Test Item Value Reference Range Interpretation Comments WBC (test code = See_Comment [Automated 5753-2) message] The sy stem which generated this result transmitted reference range : 4.20 - 10.70 10*3/?L. The reference range was not used to interpret this result as normal/abnormal . RBC (test code = See_Comment [Automated 716-9) message] The sy stem which generated this [...] RDW-SD (test code = 46.0 fL 38.5-51.6 76078-8) RDW-CV (test code = 16.1 % 12.1-15.4 H 788-0) PLT (test code = See_Comment H [Automated 777-3) message] The sy stem which generated this result transmitted reference range : 150 - 328 10*3/ ?L. The reference r torito was not used to interpret this result as normal/abnormal . MPV (test code = 8.6 fL 9.8-13.0 L 75895-4) NRBC/100 WBC (test See_Comment [Automat ed code = 8778171340) message] The system which generated this result transmitted reference range : 0.0 - 10.0 /100 WBCs. The refer ence range was not u sed to interpret th is result as normal/abnormal . NRBC x10^3 (test code <0.01 See_Comment [Auto mated = 9980186982) message] The s ystem which generated this result transmitted reference range : 10*3/?L. The reference range was not used to interpret this result as normal/abnormal . GRAN MAT (NEUT) % 70.2 % (test code = 770-8) IMM GRAN % (test code 0.30 % = 3882944018) LYMPH % (test code = 18.8 % 736-9) MONO % (test code = 5.0 % 5905-5) EOS % (test code = 5.2 % 713-8) BASO % (test code = 0.5 % 706-2) GRAN MAT x10^3(ANC) 6.05 10*3/uL 1.99-6.95 (test code = 0140761919) IMM GRAN x10^3 (test 0.03 10*3/uL 0.00-0.06 code = 4845669704) LYMPH x10^3 (test code 1.62 10*3/uL 1.09-3.23 = 731-0) MONO x10^3 (test code 0.43 10*3/uL 0.36-1.02 = 742-7) EOS x10^3 (test code = 0.45 10*3/uL 0.06-0.53 711-2) BASO x10^3 (test code 0.04 10*3/uL 0.01-0.09 = 704-7) Lab Interpretation Abnormal (test code = 37288-7) [facility]2020-12-12 03:42:00 Test Item Value Reference Range Interpretation Comments POCT GLU (test code = 196 mg/dL 70-110 H Notifi ed Provider 1569296182) Lab Interpretation (test Abnormal code = 50461-8) [facility] AllenFOLATE2021-03-02 02:24:00 Test Item Value Reference Range Interpretation Comments FOLATE SER (test code = 5221163681) 5.8 ng/mL 3.0-20.0 Lab Interpretation (test code = Normal 40849-5) [facility] AllenVITAMIN B12, [id number] 00:55:00 Test Item Value Reference Range Interpretation Comments VIT B12 (test code = 844 pg/mL 240-930 2086774664) JAMES (test code = JAMES) Biotin has been reported to cause a positive bias, interpret results relative to patient's use of biotin. Lab Interpretation (test Normal code = 47092-6) [facility] GLUCOSE (AUTOMATED)2020-12-12 00:14:00 Test Item Value Reference Range Interpretation Comments POCT GLU (test code = 6511994397) 164 mg/dL 70-110 H Lab Interpretation (test code = Abnormal 09942-1) [facility] AllenCREATINE [id number] 23:42:00 Test Item Value Reference Range Interpretation Comments CK (test code = 4754124038) <20 33-194 L Lab Interpretation (test code = Abnormal 09047-8) [facility] AllenTHYROID STIMULATING [id number] 23:17:00 Test Item Value Reference Range Interpretation Comments TSH (test code = See_Comment Biotin has been 2744333008) reported to cau se a negative bias, interpret resul ts relative to johnny bills's use of biotin. [Automated mess age] The system [employer] generated this result transmitted ref erence range: 0.45 - 4 .70 mIU/L. The refe rence range was not u sed to interpret this result as normal/abnor mal. Lab Interpretation (test Normal code = 68859-7) [facility]XR HIPS 3 VW [id number] 21:41:53No appreciable fracture lines. RL: 6200 ICAL [...] No osseous erosions.IMPRESSIONNo appreciable fracture lines.RL: 6200 [facility]PROCALCITONIN2021-[facility]-01 20:00:00 Test Item Value Reference Range Interpretation Comments Procalcitonin (test 0.13 ng/mL <0.07 H code = 9831962552) JAMES (test code = JAMES) INTERPRETATION OF [...] lung abscess/empyema. For further information please refer to:[email or web address] Lab Interpretation Abnormal (test code = 44767-2) [facility]2020-12-11 19:07:00 Test Item Value Reference Range Interpretation Comments POCT GLU (test code = 2585454000) 274 mg/dL 70-110 H Lab Interpretation (test code = Abnormal 49686-1) [facility] AllenMAGNESIUM2021-03-01 18:31:00 Test Item Value Reference Range Interpretation Comments MAGNESIUM (test code = 4957327126) 1.9 mg/dL 1.7-2.4 Lab Interpretation (test code = Normal 41666-3) [facility] AllenFERRITIN [id number] 18:31:00 Test Item Value Reference Range Interpretation Comments FERRITIN (test code = 178.0 ng/mL 18.0-464.0 1751286131) JAMES (test code = JAMES) Biotin has been reported to cause a negative bias, interpret results relative to patient's use of biotin. Lab Interpretation (test Normal code = 66131-9) [facility] HEAD WO [id number] 14:36:47 No acute intracranial abnormality. Dilated ventricles [...] study and agree with the abovereport.[facility]URINALYSIS2021-03-01 14:28:00 Test Item Value Reference Range Interpretation Comments APPEARANCE (test code = Clear Clear 8846622037) COLOR (test code = Yellow Yellow 1415339488) PH (test code = 4.8-8.0 3715244256) SP GRAVITY (test code = 1.003-1.030 4633469516) GLU U QUAL (test code = 500 mg/dL Normal A 4348153727) BLOOD (test code = Negative Negative 0154014676) KETONES (test code = 5 mg/dL Negative A 8485766189) PROTEIN (test code = Negative Negative 2887-8) UROBILIN (test code = Normal Normal 6304435044) BILIRUBIN (test code = Negative Negative 7069680377) NITRITE (test code = Negative Negative 4462137057) LEUK RYAN (test code = Negative Negative 5948253123) RBC/HPF (test code = See_Comment [Autom ated message] 9014476566) The system [employer] generated this result transmit ronan reference range : 0 - 3 HPF. The refe rence range was not u sed to interpret th is result as normal/abnormal . WBC/HPF (test code = See_Comment [Autom ated message] 3459797097) The system [employer] generated this result transmit ronan reference range : 0 - 5 HPF. The refe rence range was not u sed to interpret th is result as normal/abnormal . BACTERIA (test code = Negative Negative 9111909299) MUCOUS (test code = Slight Negative LPF A 9843755351) SQ EPITH (test code = HPF 5903122815) Lab Interpretation (test Abnormal code = 17733-1) [facility]COVID[facility] (ID NOW RAPID TESTING)2020-12-11 13:10:00 Test Item Value Reference Range Interpretation Comments SARS-CoV-2 Rapid ID NOW Not Detected Not Detected (test code = 27205-7) JAMES (test code = JAMES) ID NOW COVID-19 Assay is an isothermal nucleic acid amplification test intended for the qualitative detection of nucleic acid from SARS-CoV-2 viral RNA in nasopharyngeal (BIOLOGICAL LAB TECHNICIAN) specimens. It is used under Emergency [...] indicated. Lab Interpretation Normal (test code = 29459-1) [facility] METABOLIC PANEL (73726)2020-12-11 12:29:00 Test Item Value Reference Range Interpretation Comments NA (test code = 136 mmol/L 135-145 5891573121) K (test code = 3.5 mmol/L 3.5-5.0 9599110945) CL (test code = 95 mmol/L 98-108 L 5853435103) CO2 TOTAL (test code = 35 mmol/L 23-31 H 9635742618) AGAP (test code = 2-16 8951392825) BUN (test code = 9 mg/dL 7-23 9357208067) GLUCOSE (test code = 329 mg/dL 70-110 H 2894126679) CREATININE (test code = 0.72 mg/dL 0.60-1.25 5678478096) TOTAL BILI (test code = 0.6 mg/dL 0.1-1.8 1394084930) CALCIUM (test code = 9.0 mg/dL 8.6-10.6 7874153842) T PROTEIN (test code = 6.8 g/dL 6.3-8.2 6242415514) ALBUMIN (test code = 3.8 g/dL 3.5-5.0 3420268667) ALK PHOS (test code = 288 U/L 34-122 H 0154645169) ALTv (test code = 46 U/L 5-50 1742-6) AST(SGOT) (test code = 38 U/L 13-40 7937162607) eGFR Calculation mL/min/1.73m2 (Non-) (test code = 0041778756) eGFR Calculation mL/min/1.73m2 () (test code = 2089151555) JAMES (test code = JAMES) Association of [...] tests). Lab Interpretation Abnormal (test code = 56296-6) [facility] AllenLactic Acid Whole [id number] 12:23:00 Test Item Value Reference Range Interpretation Comments LACTIC ACID (test code = 2.09 mmol/L 0.50-2.20 [id number]) Lab Interpretation (test code = Normal 81642-7) [facility] WITH [id number] 12:17:00 Test Item Value Reference Range Interpretation Comments WBC (test code = See_Comment H [Automated 4390-2) message] The sy stem which generated this result transmitted reference range : 4.20 - 10.70 10*3/?L. The reference range was not used to interpret this result as normal/abnormal . RBC (test code = See_Comment [Automated 599-8) message] The sy stem which generated this [...] RDW-SD (test code = 44.9 fL 38.5-51.6 19709-0) RDW-CV (test code = 15.9 % 12.1-15.4 H 788-0) PLT (test code = See_Comment H [Automated 777-3) message] The sy stem which generated this result transmitted reference range : 150 - 328 10*3/ ?L. The reference r torito was not used to interpret this result as normal/abnormal . MPV (test code = 8.3 fL 9.8-13.0 L 39757-3) NRBC/100 WBC (test See_Comment [Automat ed code = 5744172707) message] The system which generated this result transmitted reference range : 0.0 - 10.0 /100 WBCs. The refer ence range was not u sed to interpret th is result as normal/abnormal . NRBC x10^3 (test code <0.01 See_Comment [Auto mated = 1956995315) message] The s ystem which generated this result transmitted reference range : 10*3/?L. The reference range was not used to interpret this result as normal/abnormal . GRAN MAT (NEUT) % 77.9 % (test code = 770-8) IMM GRAN % (test code 0.50 % = 3802763107) LYMPH % (test code = 12.2 % 736-9) MONO % (test code = 5.2 % 5905-5) EOS % (test code = 3.7 % 713-8) BASO % (test code = 0.5 % 706-2) GRAN MAT x10^3(ANC) 9.57 10*3/uL 1.99-6.95 H (test code = 0624904483) IMM GRAN x10^3 (test 0.06 10*3/uL 0.00-0.06 code = 8385087817) LYMPH x10^3 (test code 1.50 10*3/uL 1.09-3.23 = 731-0) MONO x10^3 (test code 0.64 10*3/uL 0.36-1.02 = 742-7) EOS x10^3 (test code = 0.46 10*3/uL 0.06-0.53 711-2) BASO x10^3 (test code 0.06 10*3/uL 0.01-0.09 = 704-7) Lab Interpretation Abnormal (test code = 11802-4) [facility] [id number] 18:43:00COVID DMT InterpretationInterpretation/Recommendations: Molecular NAAT Test Results [...] a nasopharyngeal sample, there is approximately a tmz-rz-eviil chance that the patient was infected and [...] upon aggregate data pooled from the [facility] medical recordincluding both current and prior COVID-19 related testing results for the following tests offered atour institution:A. Tests for the Identification of SARS-CoV-2 RNA:SARS-CoV-2 PCR assays including Greene Aptima, Greene Fusion, Barrett RealTime, and scroll kit Xpert Xpress. SARS-CoV-2 Rapid ID NOW by the ID NOW assay. ? B. Tests for the Identification of SARS-CoV-2 Antibodies: Chemiluminescent immunoassays including Access SARS-CoV-2 IgM (DXI 600), VITROS Vytz-BBOO-TjF-2 IgG (Vitros 5600 and Vitros 3600), and Barrett SARS-CoV-2 IgG ([employer] I System). These interpretation comments assume that only the above testing was utilized and that the approved acceptable specimen type(s) were used for a given test. These interpretations are autopopulated into [employer] based on computerized algorithms matching an interpretation code number to the patient's set of test results. While a clinical pathologist evaluates the combinations for clinical accuracy, clinical correlation is recommended as it may not take into account very remote prior testing. Furthermore, it does not consider testing a patient may have had outside of the [facility] system. Additionally, it should be noted that the computerized algorithm treats the results for PCR testing and Rapid ID NOW testing (also PCR) synonymously, and thus, refers to both testing methodologies as PCR tests. Given that the sensitivity of [facility]'s Rapid ID NOW testing platform is analogous [...] pathogen panel may be beneficialin this setting. [facility] LABORATORY SERVICESCOVID UavkoywRENY-NaT-6 Rapid ID NOW (no units) ? ? Date ? Value ? 08/21/2020 ? Not Detected ? [facility]2020-08-23 18:25:00 Test Item Value Reference Range Interpretation Comments POCT GLU (test code = 6715579495) 297 mg/dL 70-110 H Lab Interpretation (test code = Abnormal 20429-9) [facility] GLUCOSE (AUTOMATED)2020-08-23 14:25:00 Test Item Value Reference Range Interpretation Comments POCT GLU (test code = 5672837488) 181 mg/dL 70-110 H Lab Interpretation (test code = Abnormal 22871-1) [facility] Metabolic Panel (NA, K, CL, CO2, GLUCOSE, BUN, CREATININE, CA)2020-08-23 11:45:00 Test Item Value Reference Range Interpretation Comments NA (test code = 132 mmol/L 135-145 L 7415119113) K (test code = 4.0 mmol/L 3.5-5 2581871021) CL (test code = 96 mmol/L 98-108 L 2675846031) CO2 TOTAL (test code = 33 mmol/L 23-31 H 8973350719) AGAP (test code = 2-16 2418196396) BUN (test code = 9 mg/dL 7-23 7338115581) GLUCOSE (test code = 176 mg/dL 70-110 H 7087270947) CREATININE (test code = 0.66 mg/dL 0.6-1.25 5721282502) CALCIUM (test code = 8.5 mg/dL 8.6-10.6 L 8150878569) eGFR Calculation mL/min/1.73m2 (Non-) (test code = 3253626397) eGFR Calculation mL/min/1.73m2 () (test code = 9192062955) JAMES (test code = JAMES) Association of [...] tests). Lab Interpretation Abnormal (test code = 37807-7) [facility] [id number] 11:45:00 Test Item Value Reference Range Interpretation Comments MAGNESIUM (test code = 2386580205) 2.0 mg/dL 1.7-2.4 Lab Interpretation (test code = Normal 15734-6) [facility] with [id number] 11:38:00 Test Item Value Reference Range Interpretation [...] RDW-SD (test code = 41.8 fL 38.5-51.6 47050-1) RDW-CV (test code = 14.3 % 12.1-15.4 788-0) PLT (test code = See_Comment H [Automated 777-3) message] The sy stem which generated this result transmitted reference range : 150 - 328 10*3/ ?L. The reference r torito was not used to interpret this result as normal/abnormal . MPV (test code = 8.0 fL 9.8-13 L 13424-9) NRBC/100 WBC (test See_Comment [Automat ed code = 0067055407) message] The system which generated this result transmitted reference range : 0.0 - 10.0 /100 WBCs. The refer ence range was not u sed to interpret th is result as normal/abnormal . NRBC x10^3 (test code <0.01 See_Comment [Auto mated = 8850384134) message] The s ystem which generated this result transmitted reference range : 10*3/?L. The reference range was not used to interpret this result as normal/abnormal . GRAN MAT (NEUT) % 61.5 % (test code = 770-8) IMM GRAN % (test code 2.00 % = 9229456204) LYMPH % (test code = 25.5 % 736-9) MONO % (test code = 6.3 % 5905-5) EOS % (test code = 3.7 % 713-8) BASO % (test code = 1.0 % 706-2) GRAN MAT x10^3(ANC) 5.29 10*3/uL 1.99-6.95 (test code = 6793652027) IMM GRAN x10^3 (test 0.17 10*3/uL 0-0.06 H code = 7985703191) LYMPH x10^3 (test code 2.19 10*3/uL 1.09-3.23 = 731-0) MONO x10^3 (test code 0.54 10*3/uL 0.36-1.02 = 742-7) EOS x10^3 (test code = 0.32 10*3/uL 0.06-0.53 711-2) BASO x10^3 (test code 0.09 10*3/uL 0.01-0.09 = 704-7) Lab Interpretation Abnormal (test code = 74978-6) [facility] GLUCOSE (AUTOMATED)2020-08-23 10:22:00 Test Item Value Reference Range Interpretation Comments POCT GLU (test code = 4358630958) 164 mg/dL 70-110 H Lab Interpretation (test code = Abnormal 43353-7) [facility] GLUCOSE (AUTOMATED)2020-08-23 05:56:00 Test Item Value Reference Range Interpretation Comments POCT GLU (test code = 8450560423) 242 mg/dL 70-110 H Lab Interpretation (test code = Abnormal 16560-9) [facility] GLUCOSE (AUTOMATED)2020-08-23 03:02:00 Test Item Value Reference Range Interpretation Comments POCT GLU (test code = 7718725517) 210 mg/dL 70-110 H Lab Interpretation (test code = Abnormal 73133-9) [facility] GLUCOSE (AUTOMATED)2020-08-22 23:40:00 Test Item Value Reference Range Interpretation Comments POCT GLU (test code = 4989313700) 267 mg/dL 70-110 H Lab Interpretation (test code = Abnormal 42117-9) [facility] GLUCOSE (AUTOMATED)2020-08-22 19:08:00 Test Item Value Reference Range Interpretation Comments POCT GLU (test code = 0086306231) 191 mg/dL 70-110 H Lab Interpretation (test code = Abnormal 96366-6) [facility] GLUCOSE (AUTOMATED)2020-08-22 13:50:00 Test Item Value Reference Range Interpretation Comments POCT GLU (test code = 1024833745) 174 mg/dL 70-110 H Lab Interpretation (test code = Abnormal 63845-0) [facility] [id number] 12:59:00 Test Item Value Reference Range Interpretation Comments URINE CULTURE (test No aerobic growth (< code = 630-4) 1000 CFU/mL) [facility] with [id number] 11:28:00 Test Item Value Reference Range Interpretation Comments WBC (test code = See_Comment [Automated 6690-2) message] The sy stem which generated this result transmitted reference range : 4.20 - 10.70 10*3/?L. The reference range was not used to interpret this result as normal/abnormal . RBC (test code = See_Comment L [Automated 259-8) message] The sy stem which generated this [...] RDW-SD (test code = 42.5 fL 38.5-51.6 46033-6) RDW-CV (test code = 14.5 % 12.1-15.4 788-0) PLT (test code = See_Comment H [Automated 777-3) message] The sy stem which generated this result transmitted reference range : 150 - 328 10*3/ ?L. The reference r torito was not used to interpret this result as normal/abnormal . MPV (test code = 8.0 fL 9.8-13 L 26375-5) NRBC/100 WBC (test See_Comment [Automat ed code = 3401826452) message] The system which generated this result transmitted reference range : 0.0 - 10.0 /100 WBCs. The refer ence range was not u sed to interpret th is result as normal/abnormal . NRBC x10^3 (test code <0.01 See_Comment [Auto mated = 3642381393) message] The s ystem which generated this result transmitted reference range : 10*3/?L. The reference range was not used to interpret this result as normal/abnormal . GRAN MAT (NEUT) % 69.1 % (test code = 770-8) IMM GRAN % (test code 2.20 % = 0929516601) LYMPH % (test code = 20.9 % 736-9) MONO % (test code = 5.8 % 5905-5) EOS % (test code = 1.0 % 713-8) BASO % (test code = 1.0 % 706-2) GRAN MAT x10^3(ANC) 6.51 10*3/uL 1.99-6.95 (test code = 4172174590) IMM GRAN x10^3 (test 0.21 10*3/uL 0-0.06 H code = 5739270503) LYMPH x10^3 (test code 1.97 10*3/uL 1.09-3.23 = 731-0) MONO x10^3 (test code 0.55 10*3/uL 0.36-1.02 = 742-7) EOS x10^3 (test code = 0.09 10*3/uL 0.06-0.53 711-2) BASO x10^3 (test code 0.09 10*3/uL 0.01-0.09 = 704-7) BASO STIPPLING (test Present A code = 703-9) BANDS (test code = Increased A 0496802958) TOXIC CHANGES (test Present A code = 803-7) Lab Interpretation Abnormal (test code = 78119-7) [facility] Metabolic Panel (NA, K, CL, CO2, GLUCOSE, BUN, CREATININE, CA)2020-08-22 11:12:00 Test Item Value Reference Range Interpretation Comments NA (test code = 135 mmol/L 135-145 8384334543) K (test code = 3.6 mmol/L 3.5-5 5680637573) CL (test code = 99 mmol/L 98-108 3381570306) CO2 TOTAL (test code = 31 mmol/L 23-31 9454230393) AGAP (test code = 2-16 0938923997) BUN (test code = 9 mg/dL 7-23 1345144217) GLUCOSE (test code = 198 mg/dL 70-110 H 6460533016) CREATININE (test code = 0.72 mg/dL 0.6-1.25 0254417583) CALCIUM (test code = 8.3 mg/dL 8.6-10.6 L 8733292971) eGFR Calculation mL/min/1.73m2 (Non-) (test code = 4443085503) eGFR Calculation mL/min/1.73m2 () (test code = 0249052028) JAMES (test code = JAMES) Association of [...] tests). Lab Interpretation Abnormal (test code = 80950-1) [facility] [id number] 11:12:00 Test Item Value Reference Range Interpretation Comments MAGNESIUM (test code = 1720580982) 2.0 mg/dL 1.7-2.4 Lab Interpretation (test code = Normal 77877-5) [facility]id [facility] (Total Cholesterol, Triglycerides, HDL) - [id number] 11:12:00 Test Item Value Reference Range Interpretation Comments CHOL (test code = 155 mg/dL 120-200 8384505545) HDL (test code = 42 mg/dL >40 1419403463) HDLC RATIO (test code = See_Comment [Au tomated message] 3591638557) The system [employer] generated this result transmit ronan reference range : <=5.0. The refe rence range was not u sed to interpret th is result as normal/abnormal . TRIG (test code = 186 mg/dL 30-170 H 7896630380) LDL CHOL (test code = 76 mg/dL See_Comment [Auto mated message] 70906-7) The system [employer] generated this result transmit ronan reference range : <=160. The refe rence range was not u sed to interpret th is result as normal/abnormal . VLDL (test code = 37 mg/dL 5-60 6888987418) Lab Interpretation (test Abnormal code = 53822-5) [facility]AT[facility] PAN[facility] (69812[facility] (ALB,T.PRO,BILI T,BU/BC,ALT,AST,ALK PHOS)2020-08-22 11:12:00 Test Item Value Reference Range Interpretation Comments TOTAL BILI (test code = 1551154976) 0.6 mg/dL 0.1-1.1 BILI UNCON (test code = 6018543014) 0.2 mg/dL 0.1-1.1 BILI CONJ (test code = 5445307588) 0.0 mg/dL 0-0.3 T PROTEIN (test code = 8129695829) 6.0 g/dL 6.3-8.2 L ALBUMIN (test code = 3681360262) 2.8 g/dL 3.5-5 L ALK PHOS (test code = 8573196799) 222 U/L 34-122 H ALTv (test code = 1742-6) 27 U/L 5-50 AST(SGOT) (test code = 6090662334) 30 U/L 13-40 Lab Interpretation (test code = Abnormal 95679-8) [facility] GLUCOSE (AUTOMATED)2020-08-22 10:11:00 Test Item Value Reference Range Interpretation Comments POCT GLU (test code = 6616500653) 196 mg/dL 70-110 H Lab Interpretation (test code = Abnormal 97335-4) [facility] GLUCOSE (AUTOMATED)2020-08-22 07:15:00 Test Item Value Reference Range Interpretation Comments POCT GLU (test code = 8919527134) 183 mg/dL 70-110 H Lab Interpretation (test code = Abnormal 19395-4) [facility] GLUCOSE (AUTOMATED)2020-08-22 02:30:00 Test Item Value Reference Range Interpretation Comments POCT GLU (test code = 4351516815) 295 mg/dL 70-110 H Lab Interpretation (test code = Abnormal 14406-4) [facility] GLUCOSE (AUTOMATED)2020-08-21 23:46:00 Test Item Value Reference Range Interpretation Comments POCT GLU (test code = 9609734737) 258 mg/dL 70-110 H Lab Interpretation (test code = Abnormal 34667-6) [facility]-REACTIVE [id number] 18:50:00 Test Item Value Reference Range Interpretation Comments CRP (test code = 1312112883) 15.5 mg/dL <0.8 H Lab Interpretation (test code = Abnormal 63758-4) [facility]2020-08-21 18:21:00 Test Item Value Reference Range Interpretation Comments POCT GLU (test code = 2794446500) 297 mg/dL 70-110 H Lab Interpretation (test code = Abnormal 69076-6) [facility]ETHANOL2020-11-09 16:24:00 Test Item Value Reference Range Interpretation Comments ALCOHOL (test code = <10 mg/dL 6530279637) JAMES (test code = Toxic Greater than or JAMES) equal to 80 mg/dL. NOTE: Whole blood values are approximately 10% to 15% lower than serum and plasma. [facility] ONLY - URINE DRUG (IMMUNOASSAY) - 4 ER [id number] 15:36:00 Test Item Value Reference Range Interpretation Comments AMPHET (test code = Negative Negative 1330309873) Cocaine Metabolite (test Negative Negative code = 2859397847) OPIATES (test code = Presumptive Positive Negative A 6177594574) THC (test code = Negative Negative 1638993408) JAMES (test code = JAMES) Urine Drug Cutoff Ranges Amphetamine: ? 1,000 ng/mLCocaine: ? 150 ng/mLOpiates: ? 300 ng/mLCannabinoids: ?50 ng/mL The results are to be used only for medical (i.e., treatment) purposes. Unconfirmed screening results must not be used for non-medical purposes (e.g., employment testing, legal testing). Lab Interpretation (test Abnormal code = 13696-2) [facility] ONLY - SYPHILIS [id number] 15:04:00 Test Item Value Reference Range Interpretation Comments Syphilis IgG/IgM (test Non-reactive Non-reactive code = 58641-8) JAMES (test code = JAMES) Non-reactive - No serologic evidence of T. pallidum infection. Cannot exclude incubating or early syphilis. Submit a second specimen in 2-4 weeks if syphilis is clinically suspected. Equivocal - Further testing to follow. Reactive - Further testing to follow. Lab Interpretation (test Normal code = 90236-6) [facility] AllenUrinalysis2020-[facility] 14:52:00 Test Item Value Reference Range Interpretation Comments APPEARANCE (test code = Clear Clear 9237922628) COLOR (test code = Yellow Yellow 3906676936) PH (test code = 4.8-8.0 5906730661) SP GRAVITY (test code = 1.003-1.030 7358687000) GLU U QUAL (test code = 500 mg/dL Normal A 4306238146) BLOOD (test code = Negative Negative 8539933448) KETONES (test code = 20 mg/dL Negative A 6286078574) PROTEIN (test code = Negative Negative 2887-8) UROBILIN (test code = Normal Normal 0286626369) BILIRUBIN (test code = Negative Negative 4179408585) NITRITE (test code = Negative Negative 9915635216) LEUK RYAN (test code = Negative Negative 6027182204) RBC/HPF (test code = <1 See_Comment [Autom ated message] 5306666469) The system [employer] generated this result transmit ronan reference range : 0 - 3 HPF. The refe rence range was not u sed to interpret th is result as normal/abnormal . WBC/HPF (test code = See_Comment [Autom ated message] 5594760896) The system [employer] generated this result transmit ronan reference range : 0 - 5 HPF. The refe rence range was not u sed to interpret th is result as normal/abnormal . BACTERIA (test code = Negative Negative 7690017565) MUCOUS (test code = Slight Negative LPF A 1423191876) Lab Interpretation (test Abnormal code = 70131-2) [facility] AllenACTIVATED PARTIAL THRMPLAS [id number] 13:45:00 Test Item Value Reference Range Interpretation Comments APTT Patient (test code = See_Comment [ Automated message] 3173-2) The system [employer] generated this result transmitted ref erence range: 26 - 36 Seconds. The re ference range was not u sed to interpret this result as normal/abnor mal. Lab Interpretation (test Normal code = 09493-1) [facility]2020-08-21 13:45:00 Test Item Value Reference Range Interpretation Comments POCT GLU (test code = 3158651333) 246 mg/dL 70-110 H Lab Interpretation (test code = Abnormal 81329-7) [facility] AllenHIV 1/2 AG-AB WITH [id number] 12:32:00 Test Item Value Reference Range Interpretation Comments HIV Negative Negative Semi-quantitative (test code = 19434-1) JAMES (test code = Non-reactive for HIV-1 JAMES) antigen and HIV-1/HIV-2 antibodies. ?No laboratory evidence of HIV infection. ?Repeat in 2-4 weeks if acute HIV infection is suspected. [facility] WITH [id number] 12:18:00 Test Item Value Reference Range Interpretation [...] RDW-SD (test code = 44.4 fL 38.5-51.6 09627-1) RDW-CV (test code = 14.5 % 12.1-15.4 788-0) PLT (test code = See_Comment H [Automated 777-3) message] The sy stem which generated this result transmitted reference range : 150 - 328 10*3/ ?L. The reference r torito was not used to interpret this result as normal/abnormal . MPV (test code = 8.5 fL 9.8-13 L 48952-8) NRBC/100 WBC (test See_Comment [Automat ed code = 1779211905) message] The system which generated this result transmitted reference range : 0.0 - 10.0 /100 WBCs. The refer ence range was not u sed to interpret th is result as normal/abnormal . NRBC x10^3 (test code <0.01 See_Comment [Auto mated = 7560577455) message] The s ystem which generated this result transmitted reference range : 10*3/?L. The reference range was not used to interpret this result as normal/abnormal . GRAN MAT (NEUT) % 90.4 % (test code = 770-8) IMM GRAN % (test code 1.30 % = 5164684118) LYMPH % (test code = 7.1 % 736-9) MONO % (test code = 0.5 % 5905-5) EOS % (test code = 0.1 % 713-8) BASO % (test code = 0.6 % 706-2) GRAN MAT x10^3(ANC) 7.74 10*3/uL 1.99-6.95 H (test code = 7897344144) IMM GRAN x10^3 (test 0.11 10*3/uL 0-0.06 H code = 8560289369) LYMPH x10^3 (test code 0.61 10*3/uL 1.09-3.23 L = 731-0) MONO x10^3 (test code 0.04 10*3/uL 0.36-1.02 L = 742-7) EOS x10^3 (test code = <0.03 0.06-0.53 L 711-2) BASO x10^3 (test code 0.05 10*3/uL 0.01-0.09 = 704-7) POLYCHROMASIA (test 2+ See_Comment [Automa ronan code = 30678-5) message] The system which generated this result transmitted reference range : 2+. The referen ce range was not u sed to interpret th is result as normal/abnormal . BANDS (test code = Increased A 7566889463) Lab Interpretation Abnormal (test code = 34974-1) [facility] AllenPROCALCITONIN2020-11-09 11:48:00 Test Item Value Reference Range Interpretation Comments Procalcitonin (test 0.36 ng/mL <0.07 H code = 2442708439) JAMES (test code = JAMES) INTERPRETATION OF [...] lung abscess/empyema. For further information please refer to:[email or web address] Lab Interpretation Abnormal (test code = 10565-2) [facility] AllenLAOHATE [id number] 10:53:00 Test Item Value Reference Range Interpretation Comments LDH (test code = 8288301385) 351 U/L 300-600 Lab Interpretation (test code = Normal 15860-0) [facility] AllenSEDIMENTATION [id number] 10:07:00 Test Item Value Reference Range Interpretation Comments ESR (test code = See_Comment H [Automated message] 6931010312) The system [employer] generated this result transmitted ref erence range: 0 - 10 m m/HR. The reference r torito was not used to interpret this result as normal/abnor mal. Lab Interpretation (test Abnormal code = 13077-2) [facility]2020-08-21 09:45:00 Test Item Value Reference Range Interpretation Comments POCT GLU (test code = 5986680954) 287 mg/dL 70-110 H Lab Interpretation (test code = Abnormal 51837-4) [facility] AllenGlycosylated Hemoglobin (A1C)2020-08-21 09:29:00 Test Item Value Reference Range Interpretation Comments HGB A1C (test code = 4548-4) 9.8 % 4-6 H Lab Interpretation (test code = Abnormal 60656-7) [facility] AllenCOVID-19 (ID NOW RAPID TESTING)2020-08-21 09:13:00 Test Item Value Reference Range Interpretation Comments SARS-CoV-2 Rapid ID NOW Not Detected Not Detected (test code = 60858-2) JAMES (test code = JAMES) ID NOW COVID-19 Assay is an isothermal nucleic acid amplification test intended for the qualitative detection of nucleic acid from SARS-CoV-2 viral RNA in nasopharyngeal (BIOLOGICAL LAB TECHNICIAN) specimens. It is used under Emergency [...] indicated. Lab Interpretation Normal (test code = 40277-9) [facility] AllenProthrombin Time / [id number] 08:59:00 Test Item Value Reference Range Interpretation Comments PROTIME PATIENT (test See_Comment H [Auto mated message] code = 5964-2) The system [employer] generated this result transmitted ref erence range: 10.1 - 1 2.6 Seconds. The reference range was not used to int erpret this result as normal/abnormal . INR (test code = 6301-6) Nor mal INR <1.1; Warfarin Therap eutic range 2.0 to 3. 0 or 2.5 to 3.5, dep ending upon the indica tions. Lab Interpretation (test Abnormal code = 45207-9) [facility] AllenaPTT2020-11-09 08:59:00 Test Item Value Reference Range Interpretation Comments APTT Patient (test code = See_Comment [ Automated message] 3173-2) The system [employer] generated this result transmitted ref erence range: 26 - 36 Seconds. The re ference range was not u sed to interpret this result as normal/abnor mal. Lab Interpretation (test Normal code = 55412-9) [facility] AllenBASI METABOLIC PANEL (NA, K, CL, CO2, GLUCOSE, BUN, CREATININE, CA)2020-08-21 08:52:00 Test Item Value Reference Range Interpretation Comments NA (test code = 136 mmol/L 135-145 6495822621) K (test code = 4.3 mmol/L 3.5-5 5728349822) CL (test code = 104 mmol/L 98-108 4323119742) CO2 TOTAL (test code = 24 mmol/L 23-31 6257126112) AGAP (test code = 2-16 5671644879) BUN (test code = 8 mg/dL 7-23 9181398516) GLUCOSE (test code = 308 mg/dL 70-110 H 4908563592) CREATININE (test code = 0.72 mg/dL 0.6-1.25 4402019557) CALCIUM (test code = 7.8 mg/dL 8.6-10.6 L 2489638460) eGFR Calculation mL/min/1.73m2 (Non-) (test code = 4156636454) eGFR Calculation mL/min/1.73m2 () (test code = 2354137784) JAMES (test code = JAMES) Association of [...] tests). Lab Interpretation Abnormal (test code = 97536-9) [facility] (ALB,T.PRO,BILI T,BU/BC,ALT,AST,ALK PHOS)2020-08-21 08:52:00 Test Item Value Reference Range Interpretation Comments TOTAL BILI (test code = 7167904947) 0.8 mg/dL 0.1-1.1 BILI UNCON (test code = 8103768468) 0.3 mg/dL 0.1-1.1 BILI CONJ (test code = 2556909204) 0.0 mg/dL 0-0.3 T PROTEIN (test code = 4921428769) 5.7 g/dL 6.3-8.2 L ALBUMIN (test code = 9673143939) 2.7 g/dL 3.5-5 L ALK PHOS (test code = 1292903298) 245 U/L 34-122 H ALTv (test code = 1742-6) 37 U/L 5-50 AST(SGOT) (test code = 6710240459) 43 U/L 13-40 H Lab Interpretation (test code = Abnormal 33701-5) [facility]
--- NOTE | 2022-10-07 07:06 | ER ---
Nurse's Notes [facility] Name: Kiel Ngo Age: 71 yrs Sex: Male : 1950 Arrival Date: 10/07/2022 Time: 06:35 Bed 8 Private MD: Diagnosis: Chronic pain syndrome;Pain in right hip Presentation: 10/07 06:37 Chief complaint: Patient states: right hip pain x 1 week pt denies trauma or skin kl breakdown reports robbins appt with pain management doctor on friday. Coronavirus screen: Vaccine status: Patient reports being unvaccinated. Ebola Screen: Patient negative for fever greater than or equal to 101.5 degrees Fahrenheit, and additional compatible Ebola Virus Disease symptoms. Initial Sepsis Screen: Does the patient meet any 2 criteria? No. Patient's initial sepsis screen is negative. Does the patient have a suspected source of infection? No. Patient's initial sepsis screen is negative. Risk Assessment: Do you want to hurt yourself or someone else? Patient reports no desire to harm self or others. 06:37 Method Of Arrival: EMS: [facility] 06:37 Acuity: JOZEF 4 kl 07:59 Onset of symptoms is unknown. ll1 Triage Assessment: 06:39 General: Appears in no apparent distress. comfortable, Behavior is calm, cooperative. kl Pain: Complains of pain in right hip Pain currently is 10 out of 10 on a pain scale. Quality of pain is described as aching. EENT: No deficits noted. Neuro: No deficits noted. Cardiovascular: No deficits noted. Respiratory: No deficits noted. GI: No deficits noted. No signs and/or symptoms were reported involving the gastrointestinal system. : No deficits noted. No signs and/or symptoms were reported regarding the genitourinary system. Musculoskeletal: Reports pain in right hip. Historical: - Allergies: 06:39 Demerol; kl 06:39 metformin; kl 06:39 Morphine; kl - Home Meds: 06:39 hydromorphone 4 mg Oral tab 1 tab three times a day [Active]; Klonopin 2 mg Oral TbDi 2 kl tabs 4 times a day [Active]; - PMHx: 06:39 Atrial fibrillation; chronic back pain; Chronic right leg pain; neuropathy; kl - PSHx: 06:39 back sx; PANCREAS SX; R. Ankle SX; kl - Immunization history:: Adult Immunizations not up to date. - Social history:: Smoking status: Patient denies any tobacco usage or history of. Screenin:58 [facility] ED Fall Risk Assessment (Adult) History of falling in the last 3 months, ll1 including since admission Yes- single mechanical fall (1 pt) Impaired Gait Yes (1 pt) Mobility Assist Device Used Yes (1 pt) Score/Fall Risk Level 3 or more points = High Risk Oriented to surroundings, Maintained a safe environment, Educated pt \T\ family on fall prevention, incl call for assistance when getting out of bed, Assessed \T\ reinforced patient's understanding of fall precautions, Hourly rounding (assess needs \T\ fall precautionary measures) done. Abuse screen: Denies threats or abuse. Nutritional screening: No deficits noted. Tuberculosis screening: No symptoms or risk factors identified. Assessment: 07:32 Reassessment: No changes from previously documented assessment. Patient and/or family ll1 updated on plan of care and expected duration. Pain level reassessed. Patient is alert, oriented x 3, equal unlabored respirations, skin warm/dry/pink. 07:58 Reassessment: No changes from previously documented assessment. Patient and/or family ll1 updated on plan of care and expected duration. Pain level reassessed. Patient is alert, oriented x 3, equal unlabored respirations, skin warm/dry/pink. Vital Signs: 06:37 BP 164 / 84; Pulse 119; Resp 20; Temp 98(O); Pulse Ox 97% on R/A; Pain 10/10; kl 07:57 BP 174 / 84; Pulse 113; Resp 19 S; Pulse Ox 99% on R/A; Pain 10/10; ll1 ED Course: 06:35 Patient arrived in ED. aa9 06:39 Triage completed. kl 06:55 Vera Lee FNP-C is PHCP. kb 06:55 Nate Sifuentes MD is Attending Physician. kb 07:00 Patient has correct armband on for positive identification. Bed in low position. Call bp light in reach. Side rails up X2. 07:00 No provider procedures requiring assistance completed. Patient did not have IV access bp during this emergency room visit. 07:32 Tristian Mccormack RN is Primary Nurse. ll1 07:59 Arm band placed on Patient placed. ll1 Administered Medications: 07:20 Drug: Ketorolac 30 mg Route: IM; Site: right vastus lateralis; 1 07:58 Follow up: Response: No adverse reaction ll1 07:58 Follow up: Response: No adverse reaction; Pain is decreased bp 07:20 Drug: Valium (diazepam) 10 mg Route: PO; 1 07:58 Follow up: Response: No adverse reaction 1 Medication: 07:59 VIS not applicable for this client. 1 Outcome: 07:06 Discharge ordered by . barbara 07:59 Discharged to home via ambulance. 1 07:59 Condition: stable 07:59 Discharge instructions given to patient, Instructed on discharge instructions, follow up and referral plans. Demonstrated understanding of instructions, follow-up care. 07:59 Patient left the ED. 1 Signatures: Vera Lee, PHYSICAL BIOCHEMIST-C PHYSICAL BIOCHEMIST-Ckb Letty Mccormack RN RN kl Peltier, Brian, RN RN bp Lewis, Lynsay, RN RN [facility] Dayana Kingston RN RN aa9
--- NOTE | 2022-10-07 07:06 | EDPHYS ---
Physician Documentation [facility] Name: Kiel Ngo Age: 71 yrs Sex: Male : 1950 Arrival Date: 10/07/2022 Time: 06:35 Bed 8 Private MD: ED Physician Nate Sifuentes HPI: 10/07 07:02 This 71 yrs old Male presents to ER via EMS with complaints of hip pain. kb 07:02 The patient or guardian reports pain. that occurred at home, sustained from a chronic kb condition, There is no obvious deformity. The complaints affect the right hip. Onset: The symptoms/episode began/occurred today. Modifying factors: The symptoms are alleviated by nothing, the symptoms are aggravated by nothing. Associated signs and symptoms: Loss of consciousness: the patient experienced no loss of consciousness, Pertinent positives: None. Severity of symptoms: At their worst the symptoms were moderate, in the emergency department the symptoms are unchanged. The patient has experienced similar episodes in the past, chronically. The patient has been recently seen by a physician:. Pt reports right hip pain that is chronic. States he is out of his pain medication for chronic pain. States this pain is exactly like the pain he has had in the past. No injury or trauma. . Historical: - Allergies: 06:39 Demerol; kl 06:39 metformin; kl 06:39 Morphine; kl - Home Meds: 06:39 hydromorphone 4 mg Oral tab 1 tab three times a day [Active]; Klonopin 2 mg Oral TbDi 2 kl tabs 4 times a day [Active]; - PMHx: 06:39 Atrial fibrillation; chronic back pain; Chronic right leg pain; neuropathy; kl - PSHx: 06:39 back sx; PANCREAS SX; R. Ankle SX; kl - Immunization history:: Adult Immunizations not up to date. - Social history:: Smoking status: Patient denies any tobacco usage or history of. ROS: 07:04 Constitutional: Negative for fever, chills, and weight loss. kb 07:04 MS/extremity: Positive for pain. 07:04 All other systems are negative. Exam: 07:04 Constitutional: This is a well developed, well nourished patient who is awake, alert, kb and in no acute distress. Head/Face: Normocephalic, atraumatic. ENT: Moist Mucous membranes Cardiovascular: Regular rate and rhythm with a normal S1 and S2. No gallops, murmurs, or rubs. No pulse deficits. Respiratory: Respirations even and unlabored. No increased work of breathing. Talking in full sentences Abdomen/GI: Soft, non-tender. No distention Skin: Warm, dry with normal turgor. Normal color. MS/ Extremity: Pulses equal, no cyanosis. Neurovascular intact. normal range of motion. Neuro: Awake and alert, GCS 15, oriented to person, place, time, and situation. Psych: Awake, alert, with orientation to person, place and time. Behavior, mood, and affect are within normal limits. Vital Signs: 06:37 BP 164 / 84; Pulse 119; Resp 20; Temp 98(O); Pulse Ox 97% on R/A; Pain 10/10; kl 07:57 BP 174 / 84; Pulse 113; Resp 19 S; Pulse Ox 99% on R/A; Pain 10/10; ll1 MDM: 06:55 Patient medically screened. kb 07:05 Data reviewed: vital signs, nurses notes. Data interpreted: Pulse oximetry: on room air kb is 97 %. Interpretation: normal. Counseling: I had a detailed discussion with the patient and/or guardian regarding: the historical points, exam findings, and any diagnostic results supporting the discharge/admit diagnosis, the need for outpatient follow up, a family practitioner, a banner painter, to return to the emergency department if symptoms worsen or persist or if there are any questions or concerns that arise at home. Administered Medications: 07:20 Drug: Ketorolac 30 mg Route: IM; Site: right vastus lateralis; ll1 07:58 Follow up: Response: No adverse reaction ll1 07:58 Follow up: Response: No adverse reaction; Pain is decreased bp 07:20 Drug: Valium (diazepam) 10 mg Route: PO; ll1 07:58 Follow up: Response: No adverse reaction ll1 Disposition Summary: 10/07/22 07:06 Discharge Ordered Location: Home kb Condition: Stable kb Diagnosis - Chronic pain syndrome kb - Pain in right hip kb Followup: kb - With: Emergency Department - When: As needed - Reason: Worsening of condition Followup: kb - With: Private Physician - When: 2 - 3 days - Reason: Recheck today's complaints, Continuance of care, Re-evaluation by your physician Discharge Instructions: - Discharge Summary Sheet kb - Chronic Pain, Adult kb Forms: - Medication Reconciliation Form kb - Thank You Letter kb - Antibiotic Education kb - Prescription Opioid Use kb Addendum: 10/09/2022 18:10 Co-signature as Attending Physician, Nate Sifuentes MD I agree with the assessment and r t plan of care. Signatures: Vera Lee, KYLEE-C SPOTTER-Letty Valderrama RN RN kl Tristian Mccormack RN RN ll1 Nate Sifuentes MD MD rt Quoc Demarco RN bp
[2022-10-07] MEDS ORDERED: KETOROLAC 30 MG/ML INJ ONE (07:14)
[2022-10-07] MEDS ORDERED: DIAZEPAM 5 MG TABLET ONE (07:17)
[2022-10-07 08:05] VITALS: TEMP 98
[2022-10-07 08:06] VITALS: BP 174/84; O2SAT 99
== END 2022-10-07 07:59 | disposition home or self-care (01) ==
LOC: ER 06:33
DX: G89.4 Chronic pain syndrome (principal); Z88.5 Allergy status to narcotic agent; Z88.8 Allergy status to other drugs, medicaments and biological substances
CPT/HCPCS: 96372; 99283

== ENCOUNTER 2022-10-08 19:15 | Emergency (ER) | payer OTHER ==
--- OUTSIDE RECORDS SUMMARY | 2022-10-08 19:24 | XMS REPORT | Continuity of Care Document ---
:1950 Author Organization [facility] t Address [address] [place] [address] Care Team Providers Name Role Phone CALVIN WORLEY Primary Care Physician Unavailable KELLY WASHINGTON Attending Clinician Unavailable SWEETIE STOUT Attending Clinician Unavailable Sweetie Stout MD Attending Clinician ADRIANA HAINES Attending Clinician Unavailable Cavlin Worley MD Attending Clinician Ruchi Peters RN Attending Clinician Paco Lacey DO Attending Clinician Vika Harrison MD Attending Clinician Alvarez Rowe MD Attending Clinician ALVAREZ ROWE Attending Clinician Unavailable PACO LACEY Attending Clinician Unavailable Doctor Unassigned, [place] Court Attending Clinician Unavailable Wilder VILLAREAL, Angi K.HWong Attending Clinician Jl Mccabe MD Attending Clinician Kelly Washington MD Attending Clinician [phone] Mukul Gallardo MD Attending Clinician MUKUL GALLARDO Admitting Clinician Unavailable Harrison MD, Premal G Admitting Clinician KRUPA VIKA G Admitting Clinician Unavailable Nicci VILLAREAL, Mukul Anand Admitting Clinician Payers Payer Name Policy Type Policy Number Effective Date Expiration Date Tony doe MEDICARE PART A [id number] 2007 \\T\\ B 00:00:00 [employer] INDEMNITY [id number] 2016 00:00:00 MEDICARE PART A [id number] 2014 \\T\\ B - MEDICARE 00:00:00 INDEMNITY/TRADITIO [id number] NAL CHOICE - [employer] 00:00:00 Problems Condition [...] ents Source Name Type Date Date Clinician [place] [facility] Active Rash 2019- Univers ty to [...] Quantity Comments Source Exposure to Not sure [place] of SARS-CoV-2 [place] [facility] (event) Branch History of Chews Tobacco University of tobacco use [place] [facility] History SDOH 2020-11-17 2020-11-17 5 University o f Financial 00:00:00 00:00:00 [place] [facility] History SDMI Food 2020-11-17 2020-11-17 1 Univers ity of Worry 00:00:00 00:00:00 [place] [facility] History SDOH Food 2020-11-17 2020-11-17 1 Univers ity of Scarcity 00:00:00 00:00:00 [place] [facility] History SDOH 2020-11-17 2020-11-17 1 University o f Transport Med 00:00:00 00:00:00 [place] [facility] al [facility] History SDOH 2020-11-17 2020-11-17 1 University o f Transport Non-Med 00:00:00 00:00:00 [facility] edical Branch Education 2020-11-16 2020-11-16 21 [place] of 00:00:00 00:00:00 [facility] Alcohol intake 2020-11-16 2020-11-16 Ex-drinker [facility] 00:00:00 00:00:00 (finding) [facility] [place] [facility] Tobacco use and 2020-08-21 2020-08-21 Former user Universi ty of exposure 00:00:00 00:00:00 [facility] [place] [facility] Tobacco Comment 2020-08-21 2020-08-21 quit 10 years Univer sity of 00:00:00 00:00:00 ago, started in [place] Med ical 2nd year of Branch college (~40 years) Alcohol Comment 2020-08-21 2020-08-21 Used to have 2-3 Uni versity of 00:00:00 00:00:00 six-packs of [place] Medica l beer daily x 20 Branch years, quit 2004 History [facility] 2020-08-21 2020-08-21 99 University o f Alcohol Frequency 00:00:00 00:00:00 [place] M edical Branch History [facility] 2020-08-21 2020-08-21 99 [place] o f Alcohol Std 00:00:00 00:00:00 [place] Medical Drinks Branch History [facility] 2020-08-21 2020-08-21 99 [place] o f Alcohol Binge 00:00:00 00:00:00 [facility] al [place] Sex Assigned At [birth year] Universit y of 00:00:00 00:00:00 [facility] [place] [facility] Smoking Status Start Date Stop Date Source Never smoker [facility] Medications Ordered Filled Start Stop [...] by ity of tablet 22:47: mouth at [place] 18 bedtime. Medical Branch HYDROmorpho 2020-0 Yes [...] by ity of tablet 22:47: mouth at [place] 18 bedtime. Medical Branch HYDROmorpho 0 Yes [...] by ity of tablet 16:47: mouth at [place] 18 bedtime. Medical Branch HYDROmorpho 0 Yes [...] 0845, Until Discontinu ed, Routine amLODIPine Yes [id number] 10mg Take 1 Univers 10 mg 3-07 tablet by ity of tablet 00:00: mouth [place] 00 daily. Medical Branch clotrimazol Yes [id number] Apply to Univers e 1 % 3-07 face/ears, ity of topical 00:00: armpits, [place] cream 00 pannus and Medical back/any Branch other rash twice a day fluocinonid 0 Yes [id number] Apply to Univers e 0.05 % 3-07 scalp ity of solution 00:00: twice a [place] 00 day Medical Branch triamcinolo Yes [id number] Apply to Univers ne 3-07 back, ity of acetonide 00:00: armpits [place] 0.1 % cream 00 and other Med ical affected Branch areas twice daily, please mix with clotrimazo le hydrOXYzine Yes [id number] 10mg Take 1 Univers 10 mg 3-07 tablet by ity of tablet 00:00: mouth 2 00 (two) Medical times Branch daily. amLODIPine Yes [id number] 10mg Take 1 Univers 10 mg 3-07 tablet by ity of tablet 00:00: mouth [place] 00 daily. Medical Branch clotrimazol Yes [id number] Apply to Univers e 1 % 3-07 face/ears, ity of topical 00:00: armpits, [place] cream 00 pannus and Medical back/any Branch other rash twice a day fluocinonid Yes [id number] Apply to Univers e 0.05 % 3-07 scalp ity of solution 00:00: twice a day Medical Branch triamcinolo Yes [id number] Apply to Univers ne 3-07 back, ity of acetonide 00:00: armpits [place] 0.1 % cream 00 and other Med ical affected Branch areas twice daily, please mix with clotrimazo le hydrOXYzine Yes [id number] 10mg Take 1 Univers 10 mg 3-07 tablet by ity of tablet 00:00: mouth 2 [place] 00 (two) Medical times Branch daily. amLODIPine Yes [id number] 10mg Take 1 Univers 10 mg 3-07 tablet by ity of tablet 00:00: mouth [place] 00 daily. Medical Branch clotrimazol 0 Yes [id number] Apply to Univers e 1 % 3-07 face/ears, ity of topical 00:00: armpits, [place] cream 00 pannus and Medical back/any Branch other rash twice a day fluocinonid 2020-0 Yes [id number] Apply to Univers e 0.05 % 3-07 scalp ity of solution 00:00: twice a day Medical Branch triamcinolo 2020-0 Yes [id number] Apply to Univers ne 3-07 back, ity of acetonide 00:00: armpits [place] 0.1 % cream 00 and other Med ical affected Branch areas twice daily, please mix with clotrimazo le hydrOXYzine Yes [id number] 10mg Take 1 Univers 10 mg 3-07 tablet by ity of tablet 00:00: mouth 2 [place] (two) Medical times Branch daily. amLODIPine Yes [id number] 10mg Take 1 Univers 10 mg 3-07 tablet by ity of tablet 00:00: mouth [place] 00 daily. Medical Branch clotrimazol Yes [id number] Apply to Univers e 1 % 3-07 face/ears, ity of topical 00:00: armpits, [place] cream 00 pannus and Medical back/any Branch other rash twice a day fluocinonid Yes [id number] Apply to Univers e 0.05 % 3-07 scalp ity of solution 00:00: twice a day Medical Branch triamcinolo 0 Yes [id number] Apply to Univers ne 3-07 back, ity of acetonide 00:00: armpits [place] 0.1 % cream 00 and other Med ical affected Branch areas twice daily, please mix with clotrimazo le hydrOXYzine Yes [id number] 10mg Take 1 Univers 10 mg 3- tablet by ity of tablet 00:00: mouth 2 (two) Medical times Branch daily. cephALEXin 2020-2020- No [id number] 500mg Take 1 Univers 500 mg -04 14- capsule by ity of capsule 00:00: 05:59 mouth [place] 00 :00 every 6 Medical (six) Branch hours for 3 days. cephALEXin 2020-0 2020- No [id number] 500mg Take 1 Univers 500 mg 3-04 14- capsule by ity of capsule 00:00: 05:59 mouth [place] 00 :00 every 6 Medical (six) Branch hours for 3 days. hydrOXYzine 2020-2020- No [id number] 10mg Take 1 Univers 10 mg 3- 03-07 tablet by ity of tablet 00:00: 00:00 mouth 2 [place] 00 :00 (two) Medical times [place] daily. morpHINE Yes 4mg 4 mg, Slow Uni vers injection 4 -06 IV Push, ity of mg 22:40: Q6HPRN, [place] 02 Starting Medical 12/16/20 [place] at 1640, Until Discontinu ed, Routine, Pain [...] 00 :00 dose, Sat Medical 12/16/20 at [place] 0515, Routine lactated 2020- No 1000mL at 125 Univ ers ringers IV 12-16 03-06 mL/hr, ity of infusion 01:00: 00:16 1,000 mL, [place] 1,000 mL 00 :00 IV Medical Infusion, [place] ONCE, 1 dose, 12/15/20 at 1900, Routine iohexol 2020- No 100mL 100 mL, Unive rs (OMNIPAQUE 12-15-05 Intravenou it y of 350 22:24: 22:24 s, ONCE, 1 [place] BULK-100 00 :00 dose, Fri Medica l mL) 12/15/20 at [place] injection 1645, 100 mL Routine cephALEXin 2020- [...] NaCl 0.9% 2020- No 500mL at 999 [facility] ers (NS) bolus 12-15-05 mL/hr, 500 it y of infusion 16:00: 15:26 mL, IV [place] 500 mL 00 :00 Piggyback, Medical ONCE, 1 Branch dose, Fri12/15/20 at 1000, STAT HYDROmorpho Yes 4mg 4 mg, [facility] ne 05 Oral, BID, ity of (DILAUDID) 15:30: First dose [place] tablet 4 mg 00 (after Medica l last Branch modificati on) on Fri12/15/20 at 0930, Until Discontinu ed, Routine amLODIPine 2020- No [id number] 10mg Take 1 Univers 10 mg 12-1507 tablet by ity of tablet 00:00: 00:00 mouth [place] 00 :00 daily. Medical Branch HYDROmorpho 2020- No 1mg 1 mg, [facility] ers ne 12-14 03-05 Oral, ity of (DILAUDID) 17:35: 15:18 Q6HPRN, [place] tablet 1 mg 30 :06 Starting Medi [facility] 12/14/20 Branch at 1135, Until Fri12/15/20 at 0918, Routine, Pain (scale 7-10) hydrOXYzine Yes 10mg 10 mg, [facility] ers (ATARAX) 304 Oral, BID, ity o f tablet 10 17:30: First dose [place] mg 00 on [facility] 12/14/20 at Branch 1130, Until Discontinu ed, Routine lisinopriL 0 Yes 5mg 5 mg, Univer s (PRINIVIL,Z -04 Oral, ity of ESTRIL) 17:30: DAILY, [place] tablet 5 mg 00 First dose Me dical on [facility] Branch 12/14/20 at 1130, Until Discontinu ed, Routine triamcinolo 2020- No [id number] Apply to Univers ne 12-14 back, ity of acetonide 00:00: 00:00 armpits [place] 0.1 % cream 00 :00 and other Med ical affected Branch areas twice daily, please mix with clotrimazo le clotrimazol 2020- No [id number] Apply to Univers e 1 % 12-14 face/ears, ity of topical 00:00: 00:00 armpits, [place] cream 00 :00 pannus and Medical back/any Branch other rash twice a day fluocinonid 2020- No [id number] Apply to Univers e 0.05 % 12-14 scalp ity of solution 00:00: 00:00 twice a [place] 00 :00 day Medical Branch hydrOXYzine 2020- No [id number] 10mg Take 1 Univers 10 mg 12-14 [...] 1 [place] mg 00 :00 dose, [facility] 12/12/20 at Branch 2145, Routine insulin Yes 15U 15 Units, [facility] rs glargine 12-12 Subcutaneo ity o f (LANTUS 15:00: us, DAILY, [place] U-100) 00 First dose Medical injection on [facility] 15 Units 12/12/20 at 0900, Until Discontinu ed hydrOXYzine 2020- No 10mg 10 mg, Uni vers (ATARAX) 12-12 03-02 Oral, ity of tablet 10 08:15: 07:33 ONCE, 1 [place] mg 00 :00 dose, [facility] 12/12/20 at Branch 0215, Routine mirtazapine Yes 7.5mg 7.5 mg, Un toi (REMERON) 3-02 Oral, QHS, ity of tablet 7.5 03:00: First dose [place] mg 00 on [facility] 12/11/20 at Branch 2100, Until [...] Oral, ity of (TYLENOL 23:23: 13:49 Q6HPRN, [place] #3) 300-30 43 :08 Starting Medic al [...] 00 Fri12/11/20 Me dical cream at 1315, [place] Until Discontinu ed, Routine hydrocortis 0 Yes [...] ity of 1,000 mg in 19:00: 17:35 [place], [place] NaCl 0.9% 00 :26 Q8H ABX, [...] ed, Routine insulin Yes 5U 5 Units, [facility] lispro 12-11 Subcutaneo ity of (human) 18:00: us, TID [place] (HumaLOG 00 MEALS, Medical U-100) First dose Branch injection 5 on Mon Units 12/11/20 at 1200, Until Discontinu ed Polyethylen Yes 17g 17 g, [facility] rs e Glycol 12-11 Oral, ity of 3350 17:47: [id number], [place] (MIRALAX) 05 Starting Medica l powder 17 g 12/11/20 Br anch at 1147, Until Discontinu ed, Routine, Constipati on acetaminoph Yes 650mg 650 mg, Un toi en 12-11 Oral, ity of (TYLENOL) 16:51: Q6HPRN, [place] tablet 650 28 Starting Medic al mg [...] 0630, STAT piperacilli No 3.375g 3.375 g, [place] [facility] n-tazobacta 12-11 IV ity of m (ZOSYN) 12:00: 17:48 [place], [place] injection 00 :24 Q6H, First Medi jose c 3.375 g dose on Branch Fri12/11/20 at 0600, Until Discontinu ed, KAHLIL
Re ason for Anti-Infec tive: Empiric Therapy for Suspected Infection< br>Empiric Therapy Site: Skin / Soft tissue
Duration of therapy: 72 hours sennosides- Yes [id number] 1{tbl} Take 1 [facility] docusate 2-09 tablet by ity of sodium 00:00: mouth 2 [place] 8.6-50 mg 00 (two) Medical per tablet times Branch daily. hydrocortis Yes [id number] Apply to [facility] one 2.5 % 11-21 affected ity of cream 00:00: area(s) 2 [place] 00 (two) Medical times Branch daily. blood sugar Yes [id number] Use to [facility] diagnostic 2 check ity of (FREESTYLE 00:00: blood [place] LITE 00 glucose Medical STRIPS) 4-5 times Branch strip daily. Polyethylen Yes [id number] 17g Take 1 Univers e Glycol 2-09 Packet by ity of 3350 17 00:00: mouth [place] gram powder 00 every 24 Medi jose c (twenty-fo Branch ur) hours as needed for Constipati on. sennosides- Yes [id number] 1{tbl} Take 1 Univers docusate 2-09 tablet by ity of sodium 00:00: mouth 2 [place] 8.6-50 mg 00 (two) Medical per tablet times Branch daily. hydrocortis Yes [id number] Apply to Univers one 2.5 % 2-09 affected ity of cream 00:00: area(s) 2 [place] 00 (two) Medical times Branch daily. blood sugar Yes [id number] Use to Univers diagnostic 11-21 check ity of (FREESTYLE 00:00: blood [place] LITE 00 glucose Medical STRIPS) 4-5 times Branch strip daily. Polyethylen Yes [id number] 17g Take 1 Univers e Glycol 2-09 Packet by ity of 3350 17 00:00: mouth [place] gram powder 00 every 24 Medi jose c (twenty-fo Branch ur) hours as needed for Constipati on. sennosides- Yes [id number] 1{tbl} Take 1 Univers docusate 2-09 tablet by ity of sodium 00:00: mouth 2 [place] 8.6-50 mg 00 (two) Medical per tablet times Branch daily. hydrocortis Yes [id number] Apply to Univers one 2.5 % 2-09 affected ity of cream 00:00: area(s) 2 [place] 00 (two) Medical times Branch daily. blood sugar Yes [id number] Use to Univers diagnostic 11-21 check ity of (FREESTYLE 00:00: blood [place] LITE 00 glucose Medical STRIPS) 4-5 times Branch strip daily. Polyethylen 2020-0 Yes [id number] 17g Take 1 Univers e Glycol 2-09 Packet by ity of 3350 17 00:00: mouth [place] gram powder 00 every 24 Medi jose c (twenty-fo Branch ur) hours as needed for Constipati on. sennosides- Yes [id number] 1{tbl} Take 1 Univers docusate 2-09 tablet by ity of sodium 00:00: mouth 2 [place] 8.6-50 mg 00 (two) Medical per tablet times Branch daily. hydrocortis Yes [id number] Apply to [facility] one 2.5 % 11-21 affected ity of cream 00:00: area(s) 2 [place] 00 (two) Medical times Branch daily. blood sugar Yes [id number] Use to [facility] diagnostic 11-21 check ity of (FREESTYLE 00:00: blood [place] LITE 00 glucose Medical STRIPS) 4-5 times Branch strip daily. Polyethylen Yes [id number] 17g Take 1 Univers e Glycol 11-21 Packet by ity of 3350 17 00:00: mouth [place] gram powder 00 every 24 Medi jose c (twenty-fo Branch ur) hours as needed for Constipati on. Insulin 2020- No [id number] 15U inject 15 Univers Glargine 11-21- Units ity of (LANTUS 00:00: 05:59 [place] [employer] SOLOSTAR 00 :00 skin every Medic al U-100 morning Branch INSULIN) for 30 100 unit/mL days. (3 mL) injection venlafaxine 2020- No [id number] 150mg Take 1 Univers XR 150 mg 11-21 capsule by ity of 24 hr 00:00: 05:59 mouth 3 [place] capsule 00 :00 (three) Medical times Branch daily for 30 days. Insulin 2020- No [id number] 15U inject 15 Univers Glargine 11-21-12 Units ity of (LANTUS 00:00: 05:59 [employer] SOLOSTAR 00 :00 skin every Medic al U-100 morning Branch INSULIN) for 30 100 unit/mL days. (3 mL) injection venlafaxine 2020- No [id number] 150mg Take 1 Univers XR 150 mg 11-21- capsule by ity of 24 hr 00:00: 05:59 mouth 3 [place] capsule 00 :00 (three) Medical times Branch daily for 30 days. triamcinolo 2020- No [id number] Apply to [facility] ne 11-21-04 area(s) 2 ity of acetonide 00:00: 00:00 (two) [place] 0.1 % cream 00 :00 times Medical daily. Branch cephALEXin 2020- No [id number] 1000mg Take 2 Univers 500 mg 11-21 capsules ity of capsule 00:00: 00:00 by mouth 3 [place] 00 :00 (three) Medical times Branch daily. doxycycline 2020- No [id number] 100mg Take 1 Univers hyclate 100 11-21 capsule by i ty of mg capsule 00:00: 00:00 mouth [place] 00 :00 every 12 Medical (twelve) Branch hours. lactobacill 2020- No [id number] 1{tbl} Take 1 Univers us 11-21 tablet by ity of acidophilus 00:00: 00:00 mouth 2 [place] 25 million 00 :00 (two) Medical cell -100 times Branch mg captab daily. bisacodyL 2020- No [id number] 10mg Insert 1 Univers 10 mg 11-21 Suppositor ity of suppository 00:00: 00:00 y into [place] 00 :00 rectum at Medical bedtime as Branch needed for Constipati on. ALPRAZolam 2020- No [id number] .25mg Take 1 Univers (XANAX) 11-21 tablet by ity of 0.25 mg 00:00: 00:00 mouth 2 [place] tablet 00 :00 (two) Medical times Branch daily. hydrOXYzine 2020- No [id number] 20mg Take 2 Univers 10 mg 11-21 [...] 3 ity of 6 mg 01:13: (three) [place] capsule 36 times Medical daily. Branch Insulin 2019-10 Yes 15U inject 15 Unive rs Glargine 1-12 Units ity of (LANTUS 01:13: under the [place] SOLOSTAR) 36 skin. Medical 100 unit/mL Branch (3 mL) InPn INSULIN 2019-10 Yes 5U inject 5 Univer s ASPART 1-12 Units ity of (NOVOLOG 01:13: under the [facility] FLEXPEN SC) 36 skin. Medical Branch [...] 3 ity of 6 mg 01:13: (three) [place] capsule 36 times Medical daily. Branch Insulin 2019-10 Yes 15U inject 15 Unive rs Glargine 1-12 Units ity of (LANTUS 01:13: under the [place] SOLOSTAR) 36 skin. Medical 100 unit/mL Branch (3 mL) InPn INSULIN 2019-10 Yes 5U inject 5 Univer s ASPART 1-12 Units ity of (NOVOLOG 01:13: under the [facility] FLEXPEN SC) 36 skin. Medical Branch [...] Units ity of (LANTUS 01:13: under the [place] SOLOSTAR) 36 skin. Medical 100 unit/mL Branch (3 mL) InPn INSULIN 2019-10 Yes 5U inject 5 Univer s ASPART 1-12 Units ity of (NOVOLOG 01:13: under the [facility] s FLEXPEN SC) 36 skin. Medical Branch ALPRAZolam 2019-10 Yes .25mg Take 0.25 U nivers (XANAX) 1-12 mg by ity of 0.25 mg 01:13: mouth 2 [place] tablet 36 (two) Medical times Branch daily. HYDROXYZINE 2019-10 2020- No 25mg Take 25 mg Univers PAMOATE 1-11 11-11 by mouth ity of ORAL 20:04: 00:00 daily. [place] 34 :00 Medical Branch hydrocortis 2019-10 Yes [id number] Apply to Univers one 2.5 % 1-11 affected ity of cream 00:00: area(s) 2 [place] 00 (two) Medical times Branch daily. hydrOXYzine 2019-10 Yes [id number] 20mg Take 2 Univers 10 mg 1-11 tablets by ity of tablet 00:00: mouth [place] 00 every 8 Medical (eight) Branch hours as needed for Itching or Anxiety. Polyethylen 2019-10 Yes [id number] 17g Take 1 Univers e Glycol 1-11 Packet by ity of 3350 17 00:00: mouth [place] gram powder 00 every 24 Medi jose c (twenty-fo Branch ur) hours as needed for Constipati on. hydrocortis 2019-10 Yes [id number] Apply to Univers one 2.5 % 1-11 affected ity of cream 00:00: area(s) 2 [place] 00 (two) Medical times Branch daily. hydrOXYzine 2019- Yes [id number] 20mg Take 2 Univers 10 mg 1-11 tablets by ity of tablet 00:00: mouth [place] 00 every 8 Medical (eight) Branch hours as needed for Itching or Anxiety. Polyethylen 2019- Yes [id number] 17g Take 1 Univers e Glycol 1-11 Packet by ity of 3350 17 00:00: mouth [place] gram powder 00 every 24 Medi jose c (twenty-fo Branch ur) hours as needed for Constipati on. hydrocortis 2019- Yes [id number] Apply to Univers one 2.5 % 1-11 affected ity of cream 00:00: area(s) 2 [place] (two) Medical times Branch daily. hydrOXYzine 2019-10 Yes [id number] 20mg Take 2 Univers 10 mg 1-11 tablets by ity of tablet 00:00: mouth [place] 00 every 8 Medical (eight) Branch hours as needed for Itching or Anxiety. Polyethylen 2019- Yes [id number] 17g Take 1 Univers e Glycol 1-11 Packet by ity of 3350 17 00:00: mouth [place] gram powder 00 every 24 Medi jose c (twenty-fo Branch ur) hours as needed for Constipati on. hydrocortis 2019-10 Yes [id number] Apply to Univers one 2.5 % 1-11 affected ity of cream 00:00: area(s) 2 [place] (two) Medical times Branch daily. hydrOXYzine 2019-10 Yes [id number] 20mg Take 2 Univers 10 mg 1-11 tablets by ity of tablet 00:00: mouth [place] 00 every 8 Medical (eight) Branch hours as needed for Itching or Anxiety. Polyethylen 2019-10 Yes [id number] 17g Take 1 Univers e Glycol 1-11 Packet by ity of 3350 17 00:00: mouth [place] gram powder 00 every 24 Medi jose c (twenty-fo Branch ur) hours as needed for Constipati on. hydrocortis 2019-10 Yes [id number] Apply to Univers one 2.5 % 1-11 affected ity of cream 00:00: area(s) 2 [place] 00 (two) Medical times Branch daily. hydrOXYzine 2019-10 Yes [id number] 20mg Take 2 Univers 10 mg 1-11 tablets by ity of tablet 00:00: mouth [place] 00 every 8 Medical (eight) Branch hours as needed for Itching or Anxiety. Polyethylen 2019- Yes [id number] 17g Take 1 Univers e Glycol 1-11 Packet by ity of 3350 17 00:00: mouth [place] gram powder 00 every 24 Medi jose c (twenty-fo Branch ur) hours as needed for Constipati on. hydrocortis 2019-10 Yes [id number] Apply to Univers one 2.5 % 1-11 affected ity of cream 00:00: area(s) 2 [place] 00 (two) Medical times Branch daily. hydrOXYzine 2019- Yes [id number] 20mg Take 2 Univers 10 mg 1-11 tablets by ity of tablet 00:00: mouth [place] 00 every 8 Medical (eight) Branch hours as needed for Itching or Anxiety. Polyethylen 2019- Yes [id number] 17g Take 1 Univers e Glycol 1-11 Packet by ity of 3350 17 00:00: mouth [place] gram powder 00 every 24 Medi jose c (twenty-fo Branch ur) hours as needed for Constipati on. hydrocortis 2019- Yes [id number] Apply to Univers one 2.5 % 1-11 affected ity of cream 00:00: area(s) 2 [place] 00 (two) Medical times Branch daily. hydrOXYzine 2019- Yes [id number] 20mg Take 2 Univers 10 mg 1-11 tablets by ity of tablet 00:00: mouth [place] 00 every 8 Medical (eight) Branch hours as needed for Itching or Anxiety. Polyethylen 2019- Yes [id number] 17g Take 1 Univers e Glycol 1-11 Packet by ity of 3350 17 00:00: mouth [place] gram powder 00 every 24 Medi jose c (twenty-fo Branch ur) hours as needed for Constipati on. triamcinolo 2019- 2020- No [id number] Apply to Univers ne 10-23 area(s) 2 ity of acetonide 00:00: 05:59 (two) [place] 0.1 % cream 00 :00 times Medical daily for Branch 14 days. triamcinolo 2019- 2020- No [id number] Apply to Univers ne 10-23 area(s) 2 ity of acetonide 00:00: 05:59 (two) [place] 0.1 % cream 00 :00 times Medical daily for Branch 14 days. triamcinolo 2020- 2020- No [id number] Apply to [facility] ne 10-23 area(s) 2 ity of acetonide 00:00: 05:59 (two) [place] 0.1 % cream 00 :00 times Medical daily for Branch 14 days. KCL 2019- 2020- No 40meq 40 mEq, Univers (KLOR-CON 1-10 11-10 Oral, ONCE ity of M20) tablet 16:15: 16:23 NOW, 1 [place] 40 mEq 00 :00 dose, [facility] 08/22/20 Branch at 1015, Routine HYDROmorpho 2019-10 Yes 1mg 1 mg, Unive rs ne 1-10 Oral, ity of (DILAUDID) 15:07: Q6HPRN, [place] tablet 1 mg 53 Starting [facility] 08/22/20 at 0907, Until Discontinu ed, Routine, Pain (scale 7-10) hydrocortis 2019-10 Yes Topical Uni vers one 2.5 % 1-10 (Apply To ity o f cream 02:00: Affected [place] 00 Areas), Medical BID, First Branch dose on [facility] 08/21/20 at 2000, Until Discontinu ed, Routine triamcinolo 2019-10 Yes Topical, Un tio ne 1-10 BID, First ity of acetonide 02:00: dose on [place] (TRIDERM) [facility] Medical 0.1 % cream 08/21/20 at Br anch 2000, Until Discontinu ed, Routine hydrOXYzine 2019-10 Yes 20mg 20 mg, Univ ers (ATARAX) 09 Oral, ity of tablet 20 17:39: Q8HPRN, [place] mg 12 Starting [facility] 08/21/20 at 1139, Until Discontinu ed, Routine, Itching, Anxiety sennosides- 2019-10 Yes 1{tbl} 1 tablet, Univers docusate 10-21 Oral, ity of sodium 15:00: DAILY, [place] (SENOKOT-S) 00 First dose Me dical 8.6-50 mg on [facility] per tablet 08/21/20 at [...] [place] capsule 150 00 on [facility] Medica l mg 08/21/20 at [...] 25 59 :43 Starting Medica l mg [facility] 08/21/20 at 0656, Until Fri08/21/20 at 1139, Routine, Itching, Mild Rash, Congestion /Allergies , alternate with hydroxyzin e hydrOXYzine 2019-10- No 10mg 10 mg, Uni vers (ATARAX) 10-21 Oral, ity of tablet 10 10:20: 12:57 Q6HPRN, [place] mg 22 :12 Starting Medical [facility] 08/21/20 at 0420, Until [...] 1 ity o f 09:30: 09:14 dose, [facility] 00 :00 08/21/20 at [facility] 0330, Branch Routine Polyethylen 2019-10 Yes 17g 17 g, [facility] Glycol 10-21 Oral, ity of 3350 08:29: E35AYTF, [place] (MIRALAX) 09 Starting Medica l powder 17 g [facility] 08/21/20 at 0229, Until Discontinu ed, Routine, Constipati on lanolin 2019-10 Yes Topical, Univer s alcohol-mo- 10-21 PRN, ity of w.pet-ceres 08:26: [place] (EUCERIN[place] 30 [facility] Medical cream 08/21/20 at Branch [...] 1-3) sotalol 2019-10 2020- No Take by [facility] s (BETAPACE) 10-21 mouth ity of [...] 2021-08-22 13:00:00 148 mm[Hg] Univer sity of [facility] Diastolic blood 2021-08-22 13:00:00 84 mm[Hg] Unive rsity of [facility] Heart rate 2021-08-22 13:00:00 103 /min [facility] Respiratory rate 2021-08-22 13:00:00 18 /min [facility] Oxygen saturation in 2021-08-22 13:00:00 95 /min University of Arterial blood by [facility] Pulse oximetry [place] Body temperature 2021-08-22 12:22:00 36.72 [place] [facility] Systolic blood 2020-12-17 18:35:00 139 mm[Hg] Univer sity of [facility] Diastolic blood 2020-12-17 18:35:00 87 mm[Hg] Unive rsity of [facility] Heart rate 2020-12-17 18:35:00 110 /min [facility] Body temperature 2020-12-17 18:35:00 37.72 [place] [facility] Respiratory rate 2020-12-17 18:35:00 18 /min [facility] O[facility] saturation in 2020-12-17 18:35:00 93 /min University of Arterial blood by [facility] Pulse oximetry Branch Body height 2020-12-12 08:21:00 180.3 cm [facility]i ty [facility] [place] [facility] Body weight 2020-12-12 08:21:00 103.42 kg [facility] [place] [facility] BMI 2020-12-12 08:21:00 31.80 kg/m2 [facility] [place] [facility] Systolic blood 2020-12-17 18:35:00 139 mm[Hg] Univer sity of pressure [place] [facility] Diastolic blood 2020-12-17 18:35:00 87 mm[Hg] Unive rsity of pressure [place] [facility] Heart rate 2020-12-17 18:35:00 110 /min [facility] [place] [facility] Body temperature 2020-12-17 18:35:00 37.72 [place] Univ ersity [facility] [place] [facility] Respiratory rate 2020-12-17 18:35:00 18 /min Univ ersity of [place] [facility] Oxygen saturation in 2020-12-17 18:35:00 93 /min University of Arterial blood by [facility] Pulse oximetry Branch Body height 2020-12-12 08:21:00 180.3 cm [facility] [place] [facility] Body weight 2020-12-12 08:21:00 103.42 kg [facility]i [facility] [place] [facility] BMI 2020-12-12 08:21:00 31.80 kg/m2 [facility] [place] [facility] Systolic blood 2020-08-23 19:27:00 140 mm[Hg] Univer sity of pressure [place] [facility] Diastolic blood 2020-08-23 19:27:00 79 mm[Hg] Unive rsity of pressure [place] [facility] Heart rate 2020-08-23 19:27:00 99 /min [facility]i ty [facility] [place] [facility] Body temperature 2020-08-23 19:27:00 36 [place] Univ ersity [facility] [place] [facility] Respiratory rate 2020-08-23 19:27:00 18 /min Univ ersity of [place] [facility] Oxygen saturation in 2020-08-23 19:27:00 93 /min University of Arterial blood by [facility] Pulse oximetry Branch Body weight 2020-08-21 07:20:00 104.962 kg [facility] [place] [facility] BMI 2020-08-21 07:20:00 32.27 kg/m2 [facility] [place] [facility] Systolic blood 2020-08-23 19:27:00 140 mm[Hg] Univer sity of pressure [facility] Diastolic blood 2020-08-23 19:27:00 79 mm[Hg] [facility] pressure [facility] Heart rate 2020-08-23 19:27:00 99 /min [facility] Body temperature 2020-08-23 19:27:00 36 [place] [facility] Respiratory rate 2020-08-23 19:27:00 18 /min [facility] Oxygen saturation in 2020-08-23 19:27:00 93 /min [facility] blood by [facility] Pulse oximetry [place] Body weight 2020-08-21 07:20:00 104.962 kg [facility] BMI 2020-08-21 07:20:00 32.27 kg/m2 [facility] Procedures Procedure Date / Time Performing Clinician Source Performed POCT GLUCOSE (AUTOMATED) 2020-12-17 15:42:00 Favio Harrisonal G Uni [facility] BASIC METABOLIC PANEL 2020-12-17 10:45:00 Paul Bean [facility] (NA, K, CL, CO2, GLUCOSE, Kaley Medica l Branch BUN, CREATININE, CA) CBC WITH DIFF 2020-12-17 10:45:00 Paul Bean [facility] POCT GLUCOSE (AUTOMATED) 2020-12-17 02:36:00 Harrison [facility] Uni [facility] XR TIBIA FIBULA 2 VW LEFT 2020-12-16 23:38:00 [facility] ([facility]OMATED) 2020-12-16 23:20:00 Harrison, [facility]al [facility] POCT GLUCOSE (AUTOMATED) 2020-12-16 20:10:00 Harrison, Premal [facility] POCT GLUCOSE (AUTOMATED) 2020-12-16 14:43:00 [facility] BASIC METABOLIC PANEL 2020-12-16 13:51:00 Paul Bean [facility] (NA, K, CL, CO2, GLUCOSE, [place] Medica l Branch BUN, CREATININE, CA) CBC WITH DIFF 2020-12-16 13:51:00 Paul Bean [facility] POCT GLUCOSE (AUTOMATED) 2020-12-16 04:00:00 Harrison, Premal G Uni versity of [facility] POCT GLUCOSE (AUTOMATED) 2020-12-16 00:14:00 Harrison, Premal G Uni versity [facility] CT CHEST PULMONARY 2020-12-15 22:29:38 Paul Bean [facility] ANGIOGRAM [facility] POCT GLUCOSE (AUTOMATED) 2020-12-15 19:26:00 Harrison, Premal [facility] POCT GLUCOSE (AUTOMATED) 2020-12-15 15:13:00 Krupa, Premal G Uni [facility] HB ECG ROUTINE & RHYTHM 2020-12-15 14:25:27 Cailin Romo [facility] MAGNESIUM 2020-12-15 12:01:00 Paul Bean Sivakumar [facility] BASIC METABOLIC PANEL 2020-12-15 12:01:00 Paul Bean [facility] (NA, K, CL, CO2, GLUCOSE, [place] Medica l Branch BUN, CREATININE, CA) CBC WITH DIFF 2020-12-15 12:01:00 Paul Bean [facility] POCT GLUCOSE (AUTOMATED) 2020-12-15 03:57:00 Harrison, Premal G Uni versity of [facility] POCT GLUCOSE (AUTOMATED) 2020-12-14 23:31:00 Harrison, Premal G Uni versity of [facility] POCT GLUCOSE (AUTOMATED) 2020-12-14 19:08:00 Harrison, Premal G Uni versity of [facility] POCT GLUCOSE (AUTOMATED) 2020-12-14 15:11:00 Harrison, Premal G Uni versity of [facility] POCT GLUCOSE (AUTOMATED) 2020-12-14 02:36:00 Harrison, Premal G Uni versity of [facility] POCT GLUCOSE (AUTOMATED) 2020-12-13 23:32:00 Harrison, Premal G Uni versity of [facility] POCT GLUCOSE (AUTOMATED) 2020-12-13 18:08:00 Harrison, Premal G Uni versity of [facility] BASIC METABOLIC PANEL 2020-12-13 15:39:00 Paul Bean [facility] (NA, K, CL, CO2, GLUCOSE, [place] Medica l Branch BUN, CREATININE, CA) CBC WITH DIFF 2020-12-13 15:39:00 Paul Bean [facility] POCT GLUCOSE (AUTOMATED) 2020-12-13 14:06:00 Harrison, Premal G Uni versity of [facility] POCT GLUCOSE (AUTOMATED) 2020-12-13 03:07:00 Harrison, Premal G Uni versity of [facility] POCT GLUCOSE (AUTOMATED) 2020-12-12 23:52:00 Harrison, Premal G Uni versity of [facility] POCT GLUCOSE (AUTOMATED) 2020-12-12 20:28:00 Harrison, Premal G Uni versity of [facility] POCT GLUCOSE (AUTOMATED) 2020-12-12 19:14:00 Harrison, Premal G Uni versity of [facility] POCT GLUCOSE (AUTOMATED) 2020-12-12 14:33:00 Harrison, Premal G Uni versity of [facility] MAGNESIUM 2020-12-12 08:58:00 Paul Bean [facility] BASIC METABOLIC PANEL 2020-12-12 08:58:00 Paul Bean [facility] (NA, K, CL, CO2, GLUCOSE, [place] Medica l Branch BUN, CREATININE, CA) CBC WITH DIFF 2020-12-12 08:58:00 Paul Bean [facility] US ABDOMEN LIMITED 2020-12-12 06:32:[address] [facility] POCT GLUCOSE (AUTOMATED) 2020-12-12 03:40:00 Harrison, Premal G Uni versity of [facility] POCT GLUCOSE (AUTOMATED) 2020-12-12 00:06:00 Harrison, Premal G Uni versity of [facility] XR HIPS 3 VW LEFT 2020-12-11 20:20:00 Paul Bean Sivakumar [facility] HB ECG ROUTINE & RHYTHM 2020-12-11 20:04:06 Demetrius [facility] STRIP [facility] VITAMIN B6, PLASMA 2020-12-11 19:17:[address] [address] [facility] POCT GLUCOSE (AUTOMATED) 2020-12-11 19:06:00 Vika Harrison [facility] CREATINE KINASE 2020-12-11 18:22:00 Parvez [facility] VITAMIN B12, LEVEL 2020-12-11 18:22:00 Vikas [facility] FOLATE 2020-12-11 18:22:00 [facility] THYROID STIMULATING 2020-12-11 18:22:00 Demetrius [facility] HORMONE [facility] PROCALCITONIN 2020-12-11 18:22:00 Vikas [facility] VITAMIN B1 (THIAMINE), 2020-12-11 18:22:00 [facility] WHOLE [facility]LOOD [facility] CT HEAD WO CONTRAST 2020-12-11 14:07:35 Sweetie Stout [facility] URINALYSIS 2020-12-11 13:44:00 Singer [facility] URINE CULTURE 2020-12-11 13:44:00 Singer [facility] COVID-19 (ID NOW RAPID 2020-12-11 12:31:00 Paco Lacey [facility] TESTING) Medical Branch LAB ONLY COVID 2020-12-11 12:31:00 Singer [facility] INTERPRETATION [facility] XR CHEST 1 VW 2020-12-11 12:07:24 Singer [facility] BLOOD CULTURE SCREEN 2020-12-11 12:02:00 Paco [facility] MAGNESIUM 2020-12-11 12:02:00 Vikas [facility] FERRITIN SERUM 2020-12-11 12:02:00 Paul Bean [facility] Kaley [facility] COMP. METABOLIC PANEL 2020-12-11 12:02:00 Singer [facility] ([id number]) [facility] CBC WITH DIFF 2020-12-11 12:02:00 Singer [facility] LACTIC ACID WHOLE BLOOD 2020-12-11 12:02:00 Singer Paco [facility] BLOOD CULTURE SCREEN 2020-12-11 11:42:00 Singer Paco [facility] EMERGENCY SERVICES 2020-12-11 06:01:00 Doctor Unassigned, [facility] AGREEMENTS AND [place] Medical [place] AUTHORIZATIONS HOSPITAL ADMISSION 2020-12-11 06:01:00 Doctor Unaowen, [facility] Name Medical [place] HOME HEALTH - OTHER 2020-11-11 06:01:00 Doctor Tabitha [facility] Name Medical [place] HOME HEALTH - OTHER 2020-10-30 06:01:00 Doctor Unaowen [facility] Name Medical [place] EXTERNAL PROVIDER RECORDS 2020-09-01 06:01:00 Doctor Tabitha, [facility] Name [facility] POCT GLUCOSE (AUTOMATED) 2020-08-23 18:09:00 Kelly Washington [facility] POCT GLUCOSE (AUTOMATED) 2020-08-23 14:14:00 Kelly Washington [facility] MAGNESIUM 2020-08-23 11:18:00 [place] [facility] BASIC METABOLIC PANEL 2020-08-23 11:18:00 [place] [facility] (NA, K, CL, CO2, GLUCOSE, Medica l Branch BUN, CREATININE, CA) CBC WITH DIFF 2020-08-23 11:18:00 [place] [facility] POCT GLUCOSE (AUTOMATED) 2020-08-23 10:21:00 Kelly Washington [facility] POCT GLUCOSE (AUTOMATED) 2020-08-23 05:55:00 Kelly Washington [facility] POCT GLUCOSE (AUTOMATED) 2020-08-23 03:00:00 [facility]fania [facility] PO[facility]UCOSE (AUTOMATED) 2020-08-22 23:38:00 Bety Washingtonmarie Elias versity of [facility] POCT GLUCOSE (AUTOMATED) 2020-08-22 19:04:00 Bety Washington[facility]ie [facility] POCT GLUCOSE (AUTOMATED) 2020-08-22 13:49:00 Kelly Washington Jada versity [facility] MAGNESIUM 2020-08-22 10:10:00 [facility] 2020-08-22 10:10:00 Aguila Melchor [facility] ([id number]) (ALB,T.PRO,BILI Medical Branch T,BU/BC,ALT,AST,ALK PHOS) BASIC METABOLIC PANEL 2020-08-22 10:10:00 [facility] (NA, K, CL, CO2, GLUCOSE, Medica l Branch BUN, CREATININE, CA) LIPID PANEL ([id number])(TOTAL 2020-08-22 10:10:00 [place], [facility] CHOLESTEROL, Medical [place] TRIGLYCERIDES, HDL) CBC WITH DIFF 2020-08-22 10:10:00 [facility] POCT GLUCOSE (AUTOMATED) 2020-08-22 10:10:00 Bety Washingtonmarie Elias [facility] POCT GLUCOSE (AUTOMATED) 2020-08-22 07:13:00 Kelly Washington Jada versity [facility] POCT GLUCOSE (AUTOMATED) 2020-08-22 02:24:00 Bety Washingtonmarie Elias versity [facility] POCT GLUCOSE (AUTOMATED) 2020-08-21 23:40:00 Kelly Washington Jada versity of [facility] POCT GLUCOSE (AUTOMATED) 2020-08-21 18:10:00 Kelly Washington Jada versity [facility] POCT GLUCOSE (AUTOMATED) 2020-08-21 13:39:00 Kelly Washington Jada versity [facility] ETHANOL 2020-08-21 12:35:00 [facility] 2020-08-21 12:35:00 Stefania [facility] GALV ONLY - SYPHILIS 2020-08-21 12:35:00 Stefania [facility] IGG/IGM [facility] LACTATE DEHYDROGENASE 2020-08-21 10:09:00 Ramya, [facility] GALV/CLC ONLY - URINE 2020-08-21 10:09:00 Richie [facility] DRUG (IMMUNOASSAY) - 4 ER Medica l Branch PANEL URINALYSIS 2020-08-21 10:09:00 Ramya, [facility] URINE CULTURE 2020-08-21 10:09:00 [place], [facility] PROCALCITONIN 2020-08-21 10:09:00 Ramya, [facility] POCT GLUCOSE (AUTOMATED) 2020-08-21 09:41:00 Stefania Kelly [facility] PROTHROMBIN TIME / INR 2020-08-21 08:32:00 [place], [facility] ACTIVATED PARTIAL 2020-08-21 08:32:00 Ramya, [facility] C-REACTIVE PROTEIN 2020-08-21 08:31:00 [place], [facility] HEPATIC FUNCTION PANEL 2020-08-21 08:31:00 [place], [facility] ([id number]) (ALB,T.PRO,BILI Medical Branch T,BU/BC,ALT,AST,ALK PHOS) BASIC METABOLIC PANEL 2020-08-21 08:31:00 Ram[facility], [facility] (NA, K, CL, CO2, GLUCOSE, [facility] BUN, CREATININE, CA) SEDIMENTATION RATE 2020-08-21 08:31:00 Ramya, [facility] CBC WITH DIFF 2020-08-21 08:31:00 Ramya, [facility] GLYCOSYLATED HEMOGLOBIN 2020-08-21 08:31:00 [place], [facility] (A1C) Medical Branch HIV 1/2 AG-AB WITH REFLEX 2020-08-21 08:31:00 Kelly Washington [facility] [place] [facility] (ID NOW RAPID 2020-08-21 08:20:00 [facility] TESTING) Medical Branch LAB ONLY COVID 2020-08-21 08:20:00 [place] [facility] [place] INTERPRETATION [facility] Branch Encounters Start End Encounter Admission Attending Care Care Encounter Source Date/Time Date/Time Type Type Clinicians Facility Department ID 2020-08-21 [facility] [id number] Univers 01:07:00 KELLY brandenana [facility] 2021-08-22 2021-08-22 Emergency [facility] [id number] Univers 06:21:00 08:02:00 SWEETIE cantu [facility] 2021-08-22 2021-08-22 Emergency [facility] [id number] Univers 06:21:00 08:02:00 Sweetie LOTT [id number] i ty of [place]2.[place].2.[place] [id number] [facility] 084 Branch 2021-08-09 2021-08-09 Outpatient JACQUELYN HAINES [facility] [id number] [facility] 10:27:03 10:27:03 ADRIANA lopez of Medicin e 2020-12-28 2020-12-28 Telephone [facility] 1.2.840.114 [id number] 00:00:00 00:00:00 Calvin H PRIMARY [id number] CARE 4.2.7.2.686 PAVILLION [id number] 2020-12-28 2020-12-28 Telephone [facility] 1.2.840.114 [id number] Univers 00:00:00 00:00:00 Calvin H PRIMARY [id number] it y of CARE [place].2.[place] [id number] Mo dical 220 Branch 2020-12-19 2020-12-19 Transition Tuan Peters 1.2.840.114 [id number] 00:00:00 00:00:00 of Care Ruchi Braswell [id number] [place] 4.2.7.2.686 [id number] 2020-12-19 2020-12-19 Transition Tuan Peters 1.2.840.114 [id number] Univers 00:00:00 00:00:00 of Care Ruchi Braswell [id number] it y of [place]2.7.2.686 [place] [id number] [facility] 403 Branch 2020-12-11 2020-12-17 [facility] Paco Lacey 1.2.840.1 [id number] 05:11:00 16:00:00 Encounter Vika [place] [id number] [facility] 4.2.7.2.686 [id number] [facility] 2020-12-11 2020-12-17 [facility] Paco Lacey 1.2.840.1 [id number] [facility] 05:11:00 16:00:00 Encounter Vika Harrisno Monique [id number] ity [facility] 4.2.7.[address] [place] [address] [id number] [facility] 096 Branch 2020-12-11 2020-12-17 Inpatient X [facility] [id number] Univers 05:11:00 16:00:00 pepe [facility] 2020-11-16 2020-11-16 Emergency X [facility] ERT [id number] [facility] 09:31:00 09:31:00 PACO cantu [facility] 2020-11-11 2020-11-11 Orders Doctor CUI 1.2.840.114 [id number] 00:00:00 00:00:00 Only UnassignedMONIQUE [address].1.13.[address] [facility] 4.2.7.2.686 [id number] 009 2020-11-11 2020-11-11 Orders Doctor CUI 1.2.840.114 [id number] [facility] 00:00:00 00:00:00 Only Unassigned, MONIQUE [id number] [facility] 4.2.7.2.686 Jeff as [phone] [address] 2020-11-07 2020-11-07 [facility]phone [facility] [id number] 00:00:00 00:00:00 Angi Lott 350.1.13.10 [place] 4.2.7.2.686 Professio [id number] [address] 2020-11-07 2020-11-07 Telephone [facility] [id number] [facility] 00:00:00 00:00:00 Angi Lott [id number] ity of [place] 4.2.7.2.686 [place] Professio [id number] Mo dic[address] 2020-10-30 2020-10-30 Orders Doctor BASILIA 1.2.840.114 [id number] 00:00:00 00:00:00 Only Unassigned, MONIQUE 350.1.13.[address] [facility] 4.2.7.2.686 [id number] [facility] 2020-10-30 2020-10-30 Orders Doctor BASILIA 1.2.840.114 [id number] [facility] 00:00:00 00:00:00 Only Unassigned, MONIQUE 350.1.13.10 ity [address] [place] [facility]OSPITAL 4.2.7.2.686 Jeff as [phone] [address] 2020-09-26 2020-09-26 Telephone Eliot [facility] 1.2.840.114 [id number] 00:00:00 00:00:00 [facility] [id number] CLINICS 4.2.7.2.686 [id number] [facility] 2020-09-26 2020-09-26 Telephone Eliot [facility] 1.2.840.114 [id number] [facility] 00:00:00 00:00:00 [facility] [id number] i ty of CLINICS 4[place]2.7.2.[place] [id number] [address] 2020-09-01 2020-09-01 Orders Doctor BASILIA 1.2.840.114 [id number] 00:00:00 00:00:00 Only Unassigned, MONIQUE 350.1.13.[address] [facility] 4.2.7.2.686 [id number] [id number] 2020-09-01 2020-09-01 Orders Doctor BASILIA 1.2.840.114 [id number] Univers 00:00:00 00:00:00 Only Unassigned, MONIQUE 350.1.13.[address] [facility] 4.2.7.2.686 Jeff as [id number] [facility] 009 Branch 2020-08-25 2020-08-25 Transition Tuan Peters 1.2.840.114 [id number] 00:00:00 00:00:00 of Care Ruchi Braswell 350.1.13.10 [place] 4.2.7.2.686 [id number] 2020-08-25 2020-08-25 Transition Tuan Peters 1.2.840.114 [id number] Univers 00:00:00 00:00:00 of Care Ruchi Braswell [id number] it y of [place]2.7.2.[place] [id number] [facility] 403 [place] 2020-08-21 2020-08-23 [facility] Ayleen 1.2.840.114 [id number] 01:07:00 18:35:00 Encounter Kelly Monique 350.1.13.10 [facility] 4.2.7.2.686 [id number] [facility] 2020-08-21 2020-08-23 [facility] 1. 2.840.114 [id number] [facility] 01:07:00 18:35:00 Encounter Mukul Gallardo 350.1.13. 10 ity of [facility] 4.2.7.2.686 Jeff as [id number] [address] Results Test Description Test Time Test Comments Results Result Comments Source POCT GLUCOSE (AUTOMATED) 2020-12-17 15:43:35 Test Item Value Reference Range Interpretation Comme nts POCT GLU (test code = 7810243657) 129 mg/dL 70-110 H Lab Interpretation (test code = 92060-1) [facility]normal [facility] (NA, K, CL, CO2, GLUCOSE, BUN, CREATININE, CA)2020-12-17 11:45:07 Test Item Value Reference Range Interpretation Comments NA (test code = 137 mmol/L 135-145 2205161429) K (test code = 3.5 mmol/L 3.5-5.0 2546254826) CL (test code = 103 mmol/L 98-108 3509969204) CO2 TOTAL (test code = 26 mmol/L 23-31 0127885630) AGAP (test code = 2-16 1772141265) BUN (test code = 11 mg/dL 7-23 2521078514) GLUCOSE (test code = 175 mg/dL 70-110 H 5526700728) CREATININE (test code = 0.62 mg/dL 0.60-1.25 4793949094) CALCIUM (test code = 9.0 mg/dL 8.6-10.6 3468363086) eGFR Calculation mL/min/1.73m2 (Non-) (test code = 6961958088) eGFR Calculation mL/min/1.73m2 () (test code = 2759866111) JAMES (test code = JAMES) Association of [...] tests). Lab Interpretation Abnormal (test code = 84379-0) [facility] WITH [id number] 11:07:27 Test Item Value Reference Range Interpretation [...] RDW-SD (test code = 45.2 fL 38.5-51.6 60285-1) RDW-CV (test code = 16.9 % 12.1-15.4 H 788-0) PLT (test code = See_Comment H [Automated 777-3) message] The sy stem which generated this result transmitted reference range : 150 - 328 10*3/ ?L. The reference r torito was not used to interpret this result as normal/abnormal . MPV (test code = 8.1 fL 9.8-13.0 L 39441-2) NRBC/100 WBC (test See_Comment [Automat ed code = 8171450296) message] The system which generated this result transmitted reference range : 0.0 - 10.0 /100 WBCs. The refer ence range was not u sed to interpret th is result as normal/abnormal . NRBC x10^3 (test code <0.01 See_Comment [Auto mated = 4161143429) message] The s ystem which generated this result transmitted reference range : 10*3/?L. The reference range was not used to interpret this result as normal/abnormal . GRAN MAT (NEUT) % 72.8 % (test code = 770-8) IMM GRAN % (test code 0.60 % = 7963152726) LYMPH % (test code = 18.4 % 736-9) MONO % (test code = 5.7 % 5905-5) EOS % (test code = 1.8 % 713-8) BASO % (test code = 0.7 % 706-2) GRAN MAT x10^3(ANC) 8.23 10*3/uL 1.99-6.95 H (test code = 8427114483) IMM GRAN x10^3 (test 0.07 10*3/uL 0.00-0.06 H code = 7167339843) LYMPH x10^3 (test code 2.08 10*3/uL 1.09-3.23 = 731-0) MONO x10^3 (test code 0.65 10*3/uL 0.36-1.02 = 742-7) EOS x10^3 (test code = 0.20 10*3/uL 0.06-0.53 711-2) BASO x10^3 (test code 0.08 10*3/uL 0.01-0.09 = 704-7) Lab Interpretation Abnormal (test code = 09416-0) [facility] 06:03:38 Test Item Value Reference Range Interpretation Comments POCT GLU (test code = 7697541039) 75 mg/dL 70-110 Lab Interpretation (test code = Normal 67411-8) [facility], [id number] 00:01:00 Test Item Value Reference Range Interpretation Comments VIT B6 (test code = 13.1 nmol/L 20.0-125.0 L INTERPRE TIVE 06319-3) INFORMATION: Vi tamin B6 (Pyridoxal 5-Phosphate) Pyridoxal [...] intended for cl inical purposes.Perfor med By: [address] [place] [address] [id number] Director: Namrata Klein MD Lab Interpretation Abnormal (test code = 45358-4) [facility] TIBIA FIBULA 2 VW [id number] 23:57:09 Tricompartmental knee joint osteoarthrosis.XR TIBIA FIBULA [...] No acute fracture or dislocation.IMPRESSIONTricompartmental knee joint osteoarthrosis.[facility] GLUCOSE (AUTOMATED) 2020-12-16 23:27:00 Test Item Value Reference Range Interpretation Comments POCT GLU (test code = 6031803629) 114 mg/dL 70-110 H Lab Interpretation (test code = Abnormal 31907-1) [facility] GLUCOSE (AUTOMATED)2020-12-16 20:12:00 Test Item Value Reference Range Interpretation Comments POCT GLU (test code = 8575851107) 105 mg/dL 70-110 Lab Interpretation (test code = Normal 74338-9) [facility] GLUCOSE (AUTOMATED)2020-12-16 14:44:00 Test Item Value Reference Range Interpretation Comments POCT GLU (test code = 3081185795) 153 mg/dL 70-110 H Lab Interpretation (test code = Abnormal 31113-1) [facility] METABOLIC PANEL (NA, K, CL, CO2, GLUCOSE, BUN, CREATININE, CA)2020-12-16 14:23:00 Test Item Value Reference Range Interpretation Comments NA (test code = 138 mmol/L 135-145 7509090522) K (test code = 3.4 mmol/L 3.5-5.0 L 8091411857) CL (test code = 100 mmol/L 98-108 0252193604) CO2 TOTAL (test code = 31 mmol/L 23-31 8703507962) AGAP (test code = 2-16 7689938979) BUN (test code = 11 mg/dL 7-23 6772483600) GLUCOSE (test code = 162 mg/dL 70-110 H 1735270004) CREATININE (test code = 0.64 mg/dL 0.60-1.25 9313261312) CALCIUM (test code = 8.9 mg/dL 8.6-10.6 2266178266) eGFR Calculation mL/min/1.73m2 (Non-) (test code = 6192725904) eGFR Calculation mL/min/1.73m2 () (test code = 5704878477) JAMES (test code = JAMES) Association of [...] tests). Lab Interpretation Abnormal (test code = 55004-8) [facility] WITH [id number] 14:05:00 Test Item Value Reference Range Interpretation [...] RDW-SD (test code = 45.4 fL 38.5-51.6 79229-2) RDW-CV (test code = 17.0 % 12.1-15.4 H 788-0) PLT (test code = See_Comment H [Automated 777-3) message] The sy stem which generated this result transmitted reference range : 150 - 328 10*3/ ?L. The reference r torito was not used to interpret this result as normal/abnormal . MPV (test code = 8.0 fL 9.8-13.0 L 73521-9) NRBC/100 WBC (test See_Comment [Automat ed code = 5802985111) message] The system which generated this result transmitted reference range : 0.0 - 10.0 /100 WBCs. The refer ence range was not u sed to interpret th is result as normal/abnormal . NRBC x10^3 (test code <0.01 See_Comment [Auto mated = 1694484182) message] The s ystem which generated this result transmitted reference range : 10*3/?L. The reference range was not used to interpret this result as normal/abnormal . GRAN MAT (NEUT) % 70.0 % (test code = 770-8) IMM GRAN % (test code 0.70 % = 6694333109) LYMPH % (test code = 20.5 % 736-9) MONO % (test code = 7.1 % 5905-5) EOS % (test code = 1.0 % 713-8) BASO % (test code = 0.7 % 706-2) GRAN MAT x10^3(ANC) 9.44 10*3/uL 1.99-6.95 H (test code = 7430382632) IMM GRAN x10^3 (test 0.09 10*3/uL 0.00-0.06 H code = 6698322718) LYMPH x10^3 (test code 2.76 10*3/uL 1.09-3.23 = 731-0) MONO x10^3 (test code 0.96 10*3/uL 0.36-1.02 = 742-7) EOS x10^3 (test code = 0.13 10*3/uL 0.06-0.53 711-2) BASO x10^3 (test code 0.10 10*3/uL 0.01-0.09 H = 704-7) Lab Interpretation Abnormal (test code = 79272-0) [facility] - Per[facility] # [id number] 13:01:00 Test Item Value Reference Range Interpretation Comments Blood Culture-Aerobic No organisms No growth Previo us (test code = 13672-4) isolated prelim inary verified result was Culture In Progress on 12/11/2020 at 100 1 CSTPrevious preliminary verified result was No growth a t 24 hours on 12/12/2020 at 070 1 CSTPrevious preliminary verified result was No growth a t 48 hours on 12/13/2020 at 070 1 CSTPrevious preliminary verified result was No growth a t 72 hours on 12/14/2020 at 070 1 HISTOLOGY TECH Blood No organisms No growth Previous Culture-Anaerobic isolated preliminar y (test code = 43293-9) verifi ed result was Culture In Progress on 12/11/2020 at 100 1 CSTPrevious preliminary verified result was No growth a t 24 hours on 12/12/2020 at 070 1 CSTPrevious preliminary verified result was No growth a t 48 hours on 12/13/2020 at 070 1 CSTPrevious preliminary verified result was No growth a t 72 hours on 12/14/2020 at 070 1 HISTOLOGY TECH Lab Interpretation Normal (test code = 85095-0) [facility] Culture - Peripheral # [id number] 13:01:00 Test Item Value Reference Range Interpretation Comments Blood Culture-Aerobic No organisms No growth Previo us (test code = 99561-0) isolated prelim inary verified result was Culture In Progress on 12/11/2020 at 100 1 CSTPrevious preliminary verified result was No growth a t 24 hours on 12/12/2020 at 070 1 CSTPrevious preliminary verified result was No growth a t 48 hours on 12/13/2020 at 070 1 CSTPrevious preliminary verified result was No growth a t 72 hours on 12/14/2020 at 070 1 HISTOLOGY TECH Blood No organisms No growth Previous Culture-Anaerobic isolated preliminar y (test code = 95097-2) verifi ed result was Culture In Progress on 12/11/2020 at 100 1 CSTPrevious preliminary verified result was No growth a t 24 hours on 12/12/2020 at 070 1 CSTPrevious preliminary verified result was No growth a t 48 hours on 12/13/2020 at 070 1 CSTPrevious preliminary verified result was No growth a t 72 hours on 12/14/2020 at 070 1 HISTOLOGY TECH Lab Interpretation Normal (test code = 08486-1) [facility] GLUCOSE (AUTOMATED)2020-12-16 04:01:00 Test Item Value Reference Range Interpretation Comments POCT GLU (test code = 4268862344) 156 mg/dL 70-110 H Lab Interpretation (test code = Abnormal 01954-4) [facility]2020-12-16 00:24:00 Test Item Value Reference Range Interpretation Comments POCT GLU (test code = 6632092153) 115 mg/dL 70-110 H Lab Interpretation (test code = Abnormal 42111-8) [facility] CHEST PULMONARY [id number] 23:34:55No pulmonary emboli. No interval change in [...] stableappearance of intra and extrahepatic biliary ductal dilatation.[facility] GLUCOSE (AUTOMATED)2020-12-15 19:28:00 Test Item Value Reference Range Interpretation Comments POCT GLU (test code = 6744014205) 140 mg/dL 70-110 H Lab Interpretation (test code = Abnormal 58032-9) [facility] 15:26:00 Test Item Value Reference Range Interpretation Comments MAGNESIUM (test code = 9145070943) 2.2 mg/dL 1.7-2.4 Lab Interpretation (test code = Normal 33342-2) [facility] GLUCOSE (AUTOMATED)2020-12-15 15:15:00 Test Item Value Reference Range Interpretation Comments POCT GLU (test code = 4695201784) 181 mg/dL 70-110 H Lab Interpretation (test code = Abnormal 25839-4) [facility] METABOLIC PANEL (NA, K, CL, CO2, GLUCOSE, BUN, CREATININE, CA)2020-12-15 13:07:00 Test Item Value Reference Range Interpretation Comments NA (test code = 136 mmol/L 135-145 1113975340) K (test code = 3.6 mmol/L 3.5-5.0 7017038275) CL (test code = 96 mmol/L 98-108 L 0533789143) CO2 TOTAL (test code = 29 mmol/L 23-31 3344082874) AGAP (test code = 2-16 6455901725) BUN (test code = 12 mg/dL 7-23 2703699613) GLUCOSE (test code = 183 mg/dL 70-110 H 4200518753) CREATININE (test code = 0.70 mg/dL 0.60-1.25 8882348977) CALCIUM (test code = 9.2 mg/dL 8.6-10.6 0241469928) eGFR Calculation mL/min/1.73m2 (Non-) (test code = 1546387396) eGFR Calculation mL/min/1.73m2 () (test code = 1118040088) JAMES (test code = JAMES) Association of [...] tests). Lab Interpretation Abnormal (test code = 67565-9) [facility] WITH [id number] 12:32:00 Test Item Value Reference Range Interpretation Comments WBC (test code = See_Comment H [Automated 9490-2) message] The system which generated this result transmit ronan reference range : 4.20 - 10.70 10*3/?L. The reference range was not used to interpret this result as normal/abnormal . RBC (test code = See_Comment H [Automated 589-8) message] The system which generated this result [...] RDW-SD (test code = 44.4 fL 38.5-51.6 52656-6) RDW-CV (test code = 17.7 % 12.1-15.4 H 788-0) PLT (test code = See_Comment H [Automated 777-3) message] The system which generated this result transmit ronan reference range : 150 - 328 10*3/ ?L. The reference range was not u sed to interpret th is result as normal/abnormal . MPV (test code = 8.1 fL 9.8-13.0 L 93830-8) NRBC/100 WBC (test See_Comment [Automat ed code = 9108280431) message] The system which generated this result transmit ronan reference range : 0.0 - 10.0 /100 WBCs. The reference range was not used to interpret this result as normal/abnormal . NRBC x10^3 (test code <0.01 See_Comment [Auto mated = 5095028401) message] The system which generated this result transmit ronan reference range : 10*3/?L. The reference range was not used to interpret this result as normal/abnormal . GRAN MAT (NEUT) % 74.5 % (test code = 770-8) IMM GRAN % (test code 0.70 % = 0487040558) LYMPH % (test code = 17.4 % 736-9) MONO % (test code = 6.8 % 5905-5) EOS % (test code = 0.2 % 713-8) BASO % (test code = 0.4 % 706-2) GRAN MAT x10^3(ANC) 11.99 10*3/uL 1.99-6.95 H (test code = 3358233762) IMM GRAN x10^3 (test 0.11 10*3/uL 0.00-0.06 H code = 6849800968) LYMPH x10^3 (test code 2.80 10*3/uL 1.09-3.23 = 731-0) MONO x10^3 (test code 1.10 10*3/uL 0.36-1.02 H = 742-7) EOS x10^3 (test code = 0.03 10*3/uL 0.06-0.53 L 711-2) BASO x10^3 (test code 0.06 10*3/uL 0.01-0.09 = 704-7) Lab Interpretation Abnormal (test code = 68285-0) [facility] GLUCOSE (AUTOMATED)2020-12-15 04:16:00 Test Item Value Reference Range Interpretation Comments POCT GLU (test code = 5643311568) 200 mg/dL 70-110 H Lab Interpretation (test code = Abnormal 31773-5) [facility] (THIAMINE), WHOLE [id number] 00:30:00 Test Item Value Reference Range Interpretation Comments Vitamin B1, Whole 136 nmol/L 70-180 INTERPRETI VE INFORMATION: Blood (test code = Vitamin B 1, Whole Blood 65111-4) This assay júnior ures the concentration o [...] clinical purposes.Perfor med By: [facility] [address] [place], [place] [address]H aboratory Director: Namrata Klein MD [facility] GLUCOSE (AUTOMATED)2020-12-14 23:35:00 Test Item Value Reference Range Interpretation Comments POCT GLU (test code = 4155031519) 151 mg/dL 70-110 H Lab Interpretation (test code = Abnormal 02577-1) [facility] GLUCOSE (AUTOMATED)2020-12-14 19:19:00 Test Item Value Reference Range Interpretation Comments POCT GLU (test code = 9975361918) 193 mg/dL 70-110 H Lab Interpretation (test code = Abnormal 84855-1) [facility] GLUCOSE (AUTOMATED)2020-12-14 15:22:00 Test Item Value Reference Range Interpretation Comments POCT GLU (test code = 7351289757) 221 mg/dL 70-110 H Lab Interpretation (test code = Abnormal 85572-3) [facility] GLUCOSE (AUTOMATED)2020-12-14 02:37:00 Test Item Value Reference Range Interpretation Comments POCT GLU (test code = 3698286714) 210 mg/dL 70-110 H Lab Interpretation (test code = Abnormal 68946-2) [facility] GLUCOSE (AUTOMATED)2020-12-13 23:33:00 Test Item Value Reference Range Interpretation Comments POCT GLU (test code = 9345732628) 182 mg/dL 70-110 H Lab Interpretation (test code = Abnormal 11658-5) [facility] GLUCOSE (AUTOMATED)2020-12-13 18:09:00 Test Item Value Reference Range Interpretation Comments POCT GLU (test code = 4584973721) 150 mg/dL 70-110 H Lab Interpretation (test code = Abnormal 27201-9) [facility] METABOLIC PANEL (NA, K, CL, CO2, GLUCOSE, BUN, CREATININE, CA)2020-12-13 16:27:00 Test Item Value Reference Range Interpretation Comments NA (test code = 136 mmol/L 135-145 7309352434) K (test code = 3.7 mmol/L 3.5-5.0 8928201664) CL (test code = 96 mmol/L 98-108 L 5943755108) CO2 TOTAL (test code = 29 mmol/L 23-31 7800451493) AGAP (test code = 2-16 7028461689) BUN (test code = 6 mg/dL 7-23 L 9154276388) GLUCOSE (test code = 212 mg/dL 70-110 H 5826556545) CREATININE (test code = 0.61 mg/dL 0.60-1.25 3612870848) CALCIUM (test code = 9.5 mg/dL 8.6-10.6 2035277107) eGFR Calculation mL/min/1.73m2 (Non-) (test code = 4675278876) eGFR Calculation mL/min/1.73m2 () (test code = 7157197775) JAMES (test code = JAMES) Association of [...] tests). Lab Interpretation Abnormal (test code = 99329-1) [facility] WITH [id number] 16:10:00 Test Item Value Reference Range Interpretation Comments WBC (test code = See_Comment H [Automated 9390-2) message] The sy stem which generated this result transmitted reference range : 4.20 - 10.70 10*3/?L. The reference range was not used to interpret this result as normal/abnormal . RBC (test code = See_Comment H [Automated 839-8) message] The sy stem which [...] RDW-SD (test code = 43.3 fL 38.5-51.6 23375-9) RDW-CV (test code = 16.2 % 12.1-15.4 H 788-0) PLT (test code = See_Comment H [Automated 777-3) message] The sy stem which generated this result transmitted reference range : 150 - 328 10*3/ ?L. The reference r torito was not used to interpret this result as normal/abnormal . MPV (test code = 8.2 fL 9.8-13.0 L 71845-5) NRBC/100 WBC (test See_Comment [Automat ed code = 1282415549) message] The system which generated this result transmitted reference range : 0.0 - 10.0 /100 WBCs. The refer ence range was not u sed to interpret th is result as normal/abnormal . NRBC x10^3 (test code <0.01 See_Comment [Auto mated = 9030469234) message] The s ystem which generated this result transmitted reference range : 10*3/?L. The reference range was not used to interpret this result as normal/abnormal . GRAN MAT (NEUT) % 86.2 % (test code = 770-8) IMM GRAN % (test code 0.70 % = 1435074758) LYMPH % (test code = 10.2 % 736-9) MONO % (test code = 2.5 % 5905-5) EOS % (test code = 0.1 % 713-8) BASO % (test code = 0.3 % 706-2) GRAN MAT x10^3(ANC) 9.61 10*3/uL 1.99-6.95 H (test code = 8447061596) IMM GRAN x10^3 (test 0.08 10*3/uL 0.00-0.06 H code = 9266864579) LYMPH x10^3 (test code 1.14 10*3/uL 1.09-3.23 = 731-0) MONO x10^3 (test code 0.28 10*3/uL 0.36-1.02 L = 742-7) EOS x10^3 (test code = <0.03 0.06-0.53 L 711-2) BASO x10^3 (test code 0.03 10*3/uL 0.01-0.09 = 704-7) Lab Interpretation Abnormal (test code = 07717-7) [facility] 14:16:00 Test Item Value Reference Range Interpretation Comments POCT GLU (test code = 8642877920) 236 mg/dL 70-110 H Lab Interpretation (test code = Abnormal 81673-6) [facility] COVID [id number] 04:58:00COVID DMT InterpretationInterpretation/Recommendations: Molecular NAAT Tests for [...] COVID-19 testing the patient has had at [facility], including molecular NAAT testing (more commonly known as PCR testing and Rapid ID Now testing) and antibody testing. It does not take into account any testingthat a patient has had outside of the [facility] medical record. [facility] LABORATORY SERVICESCOVID JdwdftkOSOH-UmZ-3 Rapid ID NOW (no units) ? ? Date ? Value ? 12/11/2020 ? Not Detected ? ? ? 11/16/2020 ? Not Detected ? ? ? 08/21/2020 ? Not Detected ? [facility] 2020-12-13 03:11:00 Test Item Value Reference Range Interpretation Comments POCT GLU (test code = 0389071581) 171 mg/dL 70-110 H Lab Interpretation (test code = Abnormal 55874-4) [facility] GLUCOSE (AUTOMATED)2020-12-13 00:00:00 Test Item Value Reference Range Interpretation Comments POCT GLU (test code = 3742113350) 118 mg/dL 70-110 H Lab Interpretation (test code = Abnormal 41409-1) [facility] GLUCOSE (AUTOMATED)2020-12-12 20:29:00 Test Item Value Reference Range Interpretation Comments POCT GLU (test code = 8147613094) 173 mg/dL 70-110 H Lab Interpretation (test code = Abnormal 27703-7) [facility] HospitalUS ABDOMEN [id number] 19:56:17 1. ?Hepatic steatosis. However, limited evaluation [...] main portal veinwasevaluated with color Doppler imaging. [employer] images were obtainedfor the record. COMPARISON: Ultrasound [...] where visualized. SPLEEN:No images were obtained. [facility], Radiant Results Inft User - 12/12/2020 1:57 PM CSTEXAM: US ABDOMEN LIMITEDHISTORY: 70 years-old male with RUQ ultrasound to assess for common bileduct dilation .TECHNIQUE: Limited abdominal ultrasound focused on the liver, biliarysystem, pancreas, and spleen was performed. The main portal vein wasevaluated with color Doppler imaging. [employer] images wereobtainedfor the record.COMPARISON: Ultrasound abdomen 11/17/2028. [...] study and agree with the abovereport.[facility]2020-12-12 19:24:00 Test Item Value Reference Range Interpretation Comments POCT GLU (test code = 8664037899) 230 mg/dL 70-110 H Lab Interpretation (test code = Abnormal 97366-2) [facility]ST 1 [id number] 15:16:46 Low lung volumes with mild perihilar [...] reviewed this study and agree with theabove report.[facility]2020-12-12 14:34:00 Test Item Value Reference Range Interpretation Comments POCT GLU (test code = 2234891854) 225 mg/dL 70-110 H Lab Interpretation (test code = Abnormal 54327-4) [facility] HospitalURINE [id number] 13:28:00 Test Item Value Reference Range Interpretation Comments URINE CULTURE (test < 10,000 CFU/mL mixed code = 630-4) aerobic organisms - suggests endogenous microbial contamination [facility] (NA, K, CL, CO2, GLUCOSE, BUN, CREATININE, CA)2020-12-12 10:05:00 Test Item Value Reference Range Interpretation Comments NA (test code = 136 mmol/L 135-145 7257491763) K (test code = 3.5 mmol/L 3.5-5.0 7698827971) CL (test code = 100 mmol/L 98-108 1718234828) CO2 TOTAL (test code = 31 mmol/L 23-31 0904545356) AGAP (test code = 2-16 9400471596) BUN (test code = 7 mg/dL 7-23 3007263655) GLUCOSE (test code = 259 mg/dL 70-110 H 9496663491) CREATININE (test code = 0.63 mg/dL 0.60-1.25 1214038030) CALCIUM (test code = 8.5 mg/dL 8.6-10.6 L 1887753071) eGFR Calculation mL/min/1.73m2 (Non-) (test code = 6451910940) eGFR Calculation mL/min/1.73m2 () (test code = 7340267455) JAMES (test code = JAMES) Association of [...] tests). Lab Interpretation Abnormal (test code = 79280-7) [facility] HospitalMagnesium [id number] 10:05:00 Test Item Value Reference Range Interpretation Comments MAGNESIUM (test code = 1211108622) 1.9 mg/dL 1.7-2.4 Lab Interpretation (test code = Normal 86909-3) [facility] with [id number] 09:48:00 Test Item Value Reference Range Interpretation Comments WBC (test code = See_Comment [Automated 0355-2) message] The sy stem which generated this result transmitted reference range : 4.20 - 10.70 10*3/?L. The reference range was not used to interpret this result as normal/abnormal . RBC (test code = See_Comment [Automated 426-6) message] The sy stem which generated this [...] RDW-SD (test code = 46.0 fL 38.5-51.6 64439-1) RDW-CV (test code = 16.1 % 12.1-15.4 H 788-0) PLT (test code = See_Comment H [Automated 777-3) message] The sy stem which generated this result transmitted reference range : 150 - 328 10*3/ ?L. The reference r torito was not used to interpret this result as normal/abnormal . MPV (test code = 8.6 fL 9.8-13.0 L 11895-1) NRBC/100 WBC (test See_Comment [Automat ed code = 4924377248) message] The system which generated this result transmitted reference range : 0.0 - 10.0 /100 WBCs. The refer ence range was not u sed to interpret th is result as normal/abnormal . NRBC x10^3 (test code <0.01 See_Comment [Auto mated = 5517255076) message] The s ystem which generated this result transmitted reference range : 10*3/?L. The reference range was not used to interpret this result as normal/abnormal . GRAN MAT (NEUT) % 70.2 % (test code = 770-8) IMM GRAN % (test code 0.30 % = 3387287127) LYMPH % (test code = 18.8 % 736-9) MONO % (test code = 5.0 % 5905-5) EOS % (test code = 5.2 % 713-8) BASO % (test code = 0.5 % 706-2) GRAN MAT x10^3(ANC) 6.05 10*3/uL 1.99-6.95 (test code = 0306752029) IMM GRAN x10^3 (test 0.03 10*3/uL 0.00-0.06 code = 0659533327) LYMPH x10^3 (test code 1.62 10*3/uL 1.09-3.23 = 731-0) MONO x10^3 (test code 0.43 10*3/uL 0.36-1.02 = 742-7) EOS x10^3 (test code = 0.45 10*3/uL 0.06-0.53 711-2) BASO x10^3 (test code 0.04 10*3/uL 0.01-0.09 = 704-7) Lab Interpretation Abnormal (test code = 60143-5) [facility]2020-12-12 03:42:00 Test Item Value Reference Range Interpretation Comments POCT GLU (test code = 196 mg/dL 70-110 H Notifi ed Provider 2066844758) Lab Interpretation (test Abnormal code = 14735-2) [facility]FOLATE20[facility] 02:24:00 Test Item Value Reference Range Interpretation Comments FOLATE SER (test code = 5301740347) 5.8 ng/mL 3.0-20.0 Lab Interpretation (test code = Normal 19918-1) [facility] HospitalVITAMIN B12, [id number] 00:55:00 Test Item Value Reference Range Interpretation Comments VIT B12 (test code = 844 pg/mL 240-930 9102714135) JAMES (test code = JAMES) Biotin has been reported to cause a positive bias, interpret results relative to patient's use of biotin. Lab Interpretation (test Normal code = 24408-1) [facility] GLUCOSE (AUTOMATED)2020-12-12 00:14:00 Test Item Value Reference Range Interpretation Comments POCT GLU (test code = 0209735958) 164 mg/dL 70-110 H Lab Interpretation (test code = Abnormal 41385-6) [facility] HospitalCREATINE [id number] 23:42:00 Test Item Value Reference Range Interpretation Comments CK (test code = 0873476380) <20 33-194 L Lab Interpretation (test code = Abnormal 97439-5) [facility] HospitalTHYROID STIMULATING [id number] 23:17:00 Test Item Value Reference Range Interpretation Comments TSH (test code = See_Comment Biotin has been 3343628203) reported to cau se a negative bias, interpret resul ts relative to johnny bills's use of biotin. [Automated mess age] The system [employer] generated this result transmitted ref erence range: 0.45 - 4 .70 mIU/L. The refe rence range was not u sed to interpret this result as normal/abnor mal. Lab Interpretation (test Normal code = 50419-7) [facility] VW [id number] 21:41:53No appreciable fracture lines. RL: 6200 ICAL [...] No osseous erosions.IMPRESSIONNo appreciable fracture lines.RL: 6200 [facility]PROCALCITONIN2021-03-01 20:00:00 Test Item Value Reference Range Interpretation Comments Procalcitonin (test 0.13 ng/mL <0.07 H code = 1327944213) JAMES (test code = JAMES) INTERPRETATION OF [...] lung abscess/empyema. For further information please refer to:[email or web address] Lab Interpretation Abnormal (test code = 92386-6) [facility]2020-12-11 19:07:00 Test Item Value Reference Range Interpretation Comments POCT GLU (test code = 0472031663) 274 mg/dL 70-110 H Lab Interpretation (test code = Abnormal 22351-5) [facility]2021-[facility]-01 18:31:00 Test Item Value Reference Range Interpretation Comments MAGNESIUM (test code = 5702686679) 1.9 mg/dL 1.7-2.4 Lab Interpretation (test code = Normal 96548-6) [facility]FERRITIN [id number] 18:31:00 Test Item Value Reference Range Interpretation Comments FERRITIN (test code = 178.0 ng/mL 18.0-464.0 4724283652) JAMES (test code = JAMES) Biotin has been reported to cause a negative bias, interpret results relative to patient's use of biotin. Lab Interpretation (test Normal code = 13562-1) [facility] HEAD WO [id number] 14:36:47 No acute intracranial abnormality. Dilated ventricles [...] study and agree with the abovereport.[facility]UR[facility]IS20[facility] 14:28:00 Test Item Value Reference Range Interpretation Comments APPEARANCE (test code = Clear Clear 8658331873) COLOR (test code = Yellow Yellow 2203702994) PH (test code = 4.8-8.0 0657740003) SP GRAVITY (test code = 1.003-1.030 5994426878) GLU U QUAL (test code = 500 mg/dL Normal A 3353754725) BLOOD (test code = Negative Negative 7831035763) KETONES (test code = 5 mg/dL Negative A 4168759113) PROTEIN (test code = Negative Negative 2887-8) UROBILIN (test code = Normal Normal 2087943639) BILIRUBIN (test code = Negative Negative 9102982396) NITRITE (test code = Negative Negative 5818100213) LEUK RYAN (test code = Negative Negative 4126607025) RBC/HPF (test code = See_Comment [Autom ated message] 6525346754) The system Sense[employer] generated this result transmit ronan reference range : 0 - 3 HPF. The refe rence range was not u sed to interpret th is result as normal/abnormal . WBC/HPF (test code = See_Comment [Autom ated message] 2659316884) The system [employer] generated this result transmit ronan reference range : 0 - 5 HPF. The refe rence range was not u sed to interpret th is result as normal/abnormal . BACTERIA (test code = Negative Negative 9185663681) MUCOUS (test code = Slight Negative LPF A 1297153667) SQ EPITH (test code = HPF 1692002520) Lab Interpretation (test Abnormal code = 95116-1) [facility]COVID[facility] (ID NOW RAPID TESTING)2020-12-11 13:10:00 Test Item Value Reference Range Interpretation Comments SARS-CoV-2 Rapid ID NOW Not Detected Not Detected (test code = 74049-0) JAMES (test code = JAMES) ID NOW COVID-19 Assay is an isothermal nucleic acid amplification test intended for the qualitative detection of nucleic acid from SARS-CoV-2 viral RNA in nasopharyngeal (STAFF ATTORNEY) specimens. It is used under Emergency Use [...] indicated. Lab Interpretation Normal (test code = 74581-1) [facility]. METABOLIC PANEL (65707)2020-12-11 12:29:00 Test Item Value Reference Range Interpretation Comments NA (test code = 136 mmol/L 135-145 8723210188) K (test code = 3.5 mmol/L 3.5-5.0 3187421811) CL (test code = 95 mmol/L 98-108 L 6982435116) CO2 TOTAL (test code = 35 mmol/L 23-31 H 5052948308) AGAP (test code = 2-16 4274180290) BUN (test code = 9 mg/dL 7-23 9257182712) GLUCOSE (test code = 329 mg/dL 70-110 H 3988807044) CREATININE (test code = 0.72 mg/dL 0.60-1.25 3546804451) TOTAL BILI (test code = 0.6 mg/dL 0.1-1.0 4786183259) CALCIUM (test code = 9.0 mg/dL 8.6-10.6 7497536739) T PROTEIN (test code = 6.8 g/dL 6.3-8.2 8774547271) ALBUMIN (test code = 3.8 g/dL 3.5-5.0 0019509800) ALK PHOS (test code = 288 U/L 34-122 H 2173159610) ALTv (test code = 46 U/L 5-50 1742-6) AST(SGOT) (test code = 38 U/L 13-40 9629443573) eGFR Calculation mL/min/1.73m2 (Non-) (test code = 4363623083) eGFR Calculation mL/min/1.73m2 () (test code = 1428749403) JAMES (test code = JAMES) Association of [...] tests). Lab Interpretation Abnormal (test code = 13706-0) [facility] HospitalLactic Acid Whole [id number] 12:23:00 Test Item Value Reference Range Interpretation Comments LACTIC ACID (test code = 2.09 mmol/L 0.50-2.20 8056026038) Lab Interpretation (test code = Normal 74419-1) [facility] WITH [id number] 12:17:00 Test Item Value Reference Range Interpretation [...] RDW-SD (test code = 44.9 fL 38.5-51.6 03750-3) RDW-CV (test code = 15.9 % 12.1-15.4 H 788-0) PLT (test code = See_Comment H [Automated 777-3) message] The sy stem which generated this result transmitted reference range : 150 - 328 10*3/ ?L. The reference r torito was not used to interpret this result as normal/abnormal . MPV (test code = 8.3 fL 9.8-13.0 L 42523-1) NRBC/100 WBC (test See_Comment [Automat ed code = 5372024892) message] The system which generated this result transmitted reference range : 0.0 - 10.0 /100 WBCs. The refer ence range was not u sed to interpret th is result as normal/abnormal . NRBC x10^3 (test code <0.01 See_Comment [Auto mated = 9378816950) message] The s ystem which generated this result transmitted reference range : 10*3/?L. The reference range was not used to interpret this result as normal/abnormal . GRAN MAT (NEUT) % 77.9 % (test code = 770-8) IMM GRAN % (test code 0.50 % = 2575713335) LYMPH % (test code = 12.2 % 736-9) MONO % (test code = 5.2 % 5905-5) EOS % (test code = 3.7 % 713-8) BASO % (test code = 0.5 % 706-2) GRAN MAT x10^3(ANC) 9.57 10*3/uL 1.99-6.95 H (test code = 6017268367) IMM GRAN x10^3 (test 0.06 10*3/uL 0.00-0.06 code = 9031002887) LYMPH x10^3 (test code 1.50 10*3/uL 1.09-3.23 = 731-0) MONO x10^3 (test code 0.64 10*3/uL 0.36-1.02 = 742-7) EOS x10^3 (test code = 0.46 10*3/uL 0.06-0.53 711-2) BASO x10^3 (test code 0.06 10*3/uL 0.01-0.09 = 704-7) Lab Interpretation Abnormal (test code = 48822-8) [facility] ONLY COVID [id number] 18:43:00COVID DMT InterpretationInterpretation/Recommendations: Molecular NAAT Test Results [...] a nasopharyngeal sample, there is approximately a kje-wm-grmxm chance that the patient was infected and [...] based upon aggregate data pooled from the [facility] medical recordincluding both current and prior COVID-19 related testing results for the following tests offered atour institution:A. Tests for the Identification of SARS-CoV-2 RNA:SARS-CoV-2 PCR assays including [place] Aptima, [place] Fusion, Barrett RealTime, and [employer] Xpert Xpress. SARS-CoV-2 Rapid ID NOW by the ID NOW assay. ? B. Tests for the Identification of SARS-CoV-2 Antibodies: Chemiluminescent immunoassays including Access SARS-CoV-2 IgM (DXI 600), VITROS Lqmi-ZBPQ-EwF-2 IgG (Vitros 5600 and Vitros 3600), and Barrett SARS-CoV-2 IgG (RADIOLOGIST I System). These interpretation comments assume that only the above testing was utilized and that the approved acceptable specimen type(s) were used for a given test. These interpretations are autopopulated into stickapps based on computerized algorithms matching an interpretation code number to the patient's set of test results. While a clinical pathologist evaluates the combinations for clinical accuracy, clinical correlation is recommended as it may not take into account very remote prior testing. Furthermore, it does not consider testing a patient may have had outside of the [facility] system. Additionally, it should be noted that the computerized algorithm treats the results for PCR testing and Rapid ID NOW testing (also PCR) synonymously, and thus, refers to both testing methodologies as PCR tests. Given that the sensitivity of [facility]'s Rapid ID NOW testing platform is [...] pathogen panel may be beneficialin this setting. [facility] LABORATORY SERVICESCOVID JrszyqcHHOJ-DpD-3 Rapid ID NOW (no units) ? ? Date ? Value ? 08/21/2020 ? Not Detected ? [facility]Un[facility]2020-08-23 18:25:00 Test Item Value Reference Range Interpretation Comments POCT GLU (test code = 8708920447) 297 mg/dL 70-110 H Lab Interpretation (test code = Abnormal 27908-3) [facility] GLUCOSE (AUTOMATED)2020-08-23 14:25:00 Test Item Value Reference Range Interpretation Comments POCT GLU (test code = 5836443876) 181 mg/dL 70-110 H Lab Interpretation (test code = Abnormal 66973-0) [facility] Metabolic Panel (NA, K, CL, CO2, GLUCOSE, BUN, CREATININE, CA)2020-08-23 11:45:00 Test Item Value Reference Range Interpretation Comments NA (test code = 132 mmol/L 135-145 L 0795311056) K (test code = 4.0 mmol/L 3.5-5 0521030384) CL (test code = 96 mmol/L 98-108 L 2989122559) CO2 TOTAL (test code = 33 mmol/L 23-31 H 2654389237) AGAP (test code = 2-16 8339004050) BUN (test code = 9 mg/dL 7-23 4806928011) GLUCOSE (test code = 176 mg/dL 70-110 H 2941106899) CREATININE (test code = 0.66 mg/dL 0.6-1.25 8957599137) CALCIUM (test code = 8.5 mg/dL 8.6-10.6 L 9582383039) eGFR Calculation mL/min/1.73m2 (Non-) (test code = 1885398679) eGFR Calculation mL/min/1.73m2 () (test code = 7223367743) JAMES (test code = JAMES) Association of [...] tests). Lab Interpretation Abnormal (test code = 89060-4) [facility] HospitalMagnesium [id number] 11:45:00 Test Item Value Reference Range Interpretation Comments MAGNESIUM (test code = 9048255397) 2.0 mg/dL 1.7-2.4 Lab Interpretation (test code = Normal 10689-1) [facility] with Sozdywixiset1135-54-04 11:38:00 Test Item Value Reference Range Interpretation [...] RDW-SD (test code = 41.8 fL 38.5-51.6 09689-3) RDW-CV (test code = 14.3 % 12.1-15.4 788-0) PLT (test code = See_Comment H [Automated 777-3) message] The sy stem which generated this result transmitted reference range : 150 - 328 10*3/ ?L. The reference r torito was not used to interpret this result as normal/abnormal . MPV (test code = 8.0 fL 9.8-13 L 71067-4) NRBC/100 WBC (test See_Comment [Automat ed code = 8197855153) message] The system which generated this result transmitted reference range : 0.0 - 10.0 /100 WBCs. The refer ence range was not u sed to interpret th is result as normal/abnormal . NRBC x10^3 (test code <0.01 See_Comment [Auto mated = 1750924773) message] The s ystem which generated this result transmitted reference range : 10*3/?L. The reference range was not used to interpret this result as normal/abnormal . GRAN MAT (NEUT) % 61.5 % (test code = 770-8) IMM GRAN % (test code 2.00 % = 9300123121) LYMPH % (test code = 25.5 % 736-9) MONO % (test code = 6.3 % 5905-5) EOS % (test code = 3.7 % 713-8) BASO % (test code = 1.0 % 706-2) GRAN MAT x10^3(ANC) 5.29 10*3/uL 1.99-6.95 (test code = 4465777318) IMM GRAN x10^3 (test 0.17 10*3/uL 0-0.06 H code = 8184576930) LYMPH x10^3 (test code 2.19 10*3/uL 1.09-3.23 = 731-0) MONO x10^3 (test code 0.54 10*3/uL 0.36-1.02 = 742-7) EOS x10^3 (test code = 0.32 10*3/uL 0.06-0.53 711-2) BASO x10^3 (test code 0.09 10*3/uL 0.01-0.09 = 704-7) Lab Interpretation Abnormal (test code = 01955-6) [facility] GLUCOSE (AUTOMATED)2020-08-23 10:22:00 Test Item Value Reference Range Interpretation Comments POCT GLU (test code = 7890293061) 164 mg/dL 70-110 H Lab Interpretation (test code = Abnormal 62811-2) [facility] GLUCOSE (AUTOMATED)2020-08-23 05:56:00 Test Item Value Reference Range Interpretation Comments POCT GLU (test code = 5646010484) 242 mg/dL 70-110 H Lab Interpretation (test code = Abnormal 88371-5) [facility] GLUCOSE (AUTOMATED)2020-08-23 03:02:00 Test Item Value Reference Range Interpretation Comments POCT GLU (test code = 9466115609) 210 mg/dL 70-110 H Lab Interpretation (test code = Abnormal 34282-9) [facility] GLUCOSE (AUTOMATED)2020-08-22 23:40:00 Test Item Value Reference Range Interpretation Comments POCT GLU (test code = 4682148551) 267 mg/dL 70-110 H Lab Interpretation (test code = Abnormal 36486-6) [facility] GLUCOSE (AUTOMATED)2020-08-22 19:08:00 Test Item Value Reference Range Interpretation Comments POCT GLU (test code = 0412032785) 191 mg/dL 70-110 H Lab Interpretation (test code = Abnormal 32082-2) [facility] GLUCOSE (AUTOMATED)2020-08-22 13:50:00 Test Item Value Reference Range Interpretation Comments POCT GLU (test code = 8781497109) 174 mg/dL 70-110 H Lab Interpretation (test code = Abnormal 58324-2) [facility]URINE [id number] 12:59:00 Test Item Value Reference Range Interpretation Comments URINE CULTURE (test No aerobic growth (< code = 630-4) 1000 CFU/mL) [facility]CBC with Kzfmccrfxqdt4894-52-66 11:28:00 Test Item Value Reference Range Interpretation Comments WBC (test code = See_Comment [Automated 6690-2) message] The sy stem which generated this result transmitted reference range : 4.20 - 10.70 10*3/?L. The reference range was not used to interpret this result as normal/abnormal . RBC (test code = See_Comment L [Automated 209-8) message] The sy stem which [...] RDW-SD (test code = 42.5 fL 38.5-51.6 43848-9) RDW-CV (test code = 14.5 % 12.1-15.4 788-0) PLT (test code = See_Comment H [Automated 777-3) message] The sy stem which generated this result transmitted reference range : 150 - 328 10*3/ ?L. The reference r torito was not used to interpret this result as normal/abnormal . MPV (test code = 8.0 fL 9.8-13 L 28116-5) NRBC/100 WBC (test See_Comment [Automat ed code = 3906031698) message] The system which generated this result transmitted reference range : 0.0 - 10.0 /100 WBCs. The refer ence range was not u sed to interpret th is result as normal/abnormal . NRBC x10^3 (test code <0.01 See_Comment [Auto mated = 0536621167) message] The s ystem which generated this result transmitted reference range : 10*3/?L. The reference range was not used to interpret this result as normal/abnormal . GRAN MAT (NEUT) % 69.1 % (test code = 770-8) IMM GRAN % (test code 2.20 % = 8863838465) LYMPH % (test code = 20.9 % 736-9) MONO % (test code = 5.8 % 5905-5) EOS % (test code = 1.0 % 713-8) BASO % (test code = 1.0 % 706-2) GRAN MAT x10^3(ANC) 6.51 10*3/uL 1.99-6.95 (test code = 0646910850) IMM GRAN x10^3 (test 0.21 10*3/uL 0-0.06 H code = 8557666013) LYMPH x10^3 (test code 1.97 10*3/uL 1.09-3.23 = 731-0) MONO x10^3 (test code 0.55 10*3/uL 0.36-1.02 = 742-7) EOS x10^3 (test code = 0.09 10*3/uL 0.06-0.53 711-2) BASO x10^3 (test code 0.09 10*3/uL 0.01-0.09 = 704-7) BASO STIPPLING (test Present A code = 703-9) BANDS (test code = Increased A 8513924625) TOXIC CHANGES (test Present A code = 803-7) Lab Interpretation Abnormal (test code = 96545-8) [facility] Metabolic Panel (NA, K, CL, CO2, GLUCOSE, BUN, CREATININE, CA)2020-08-22 11:12:00 Test Item Value Reference Range Interpretation Comments NA (test code = 135 mmol/L 135-145 5849082891) K (test code = 3.6 mmol/L 3.5-5 2646375819) CL (test code = 99 mmol/L 98-108 9392701320) CO2 TOTAL (test code = 31 mmol/L 23-31 2187068069) AGAP (test code = 2-16 9796382599) BUN (test code = 9 mg/dL 7-23 8724487694) GLUCOSE (test code = 198 mg/dL 70-110 H 8187234997) CREATININE (test code = 0.72 mg/dL 0.6-1.25 3271130045) CALCIUM (test code = 8.3 mg/dL 8.6-10.6 L 2117526299) eGFR Calculation mL/min/1.73m2 (Non-) (test code = 6995359389) eGFR Calculation mL/min/1.73m2 () (test code = 0630537604) JAMES (test code = JAMES) Association of [...] tests). Lab Interpretation Abnormal (test code = 71600-9) [facility] HospitalMagnesium [id number] 11:12:00 Test Item Value Reference Range Interpretation Comments MAGNESIUM (test code = 3667210474) 2.0 mg/dL 1.7-2.4 Lab Interpretation (test code = Normal 67108-3) [facility] HospitalLipid Panel (Total Cholesterol, Triglycerides, HDL) - [id number] 11:12:00 Test Item Value Reference Range Interpretation Comments CHOL (test code = 155 mg/dL 120-200 8357475574) HDL (test code = 42 mg/dL >40 0905818896) HDLC RATIO (test code = See_Comment [Au tomated message] 5019868570) The system Senseware generated this result transmit ronan reference range : <=5.0. The refe rence range was not u sed to interpret th is result as normal/abnormal . TRIG (test code = 186 mg/dL 30-170 H 9549369510) LDL CHOL (test code = 76 mg/dL See_Comment [Auto mated message] 30316-2) The system [employer] generated this result transmit ronan reference range : <=160. The refe rence range was not u sed to interpret th is result as normal/abnormal . VLDL (test code = 37 mg/dL 5-60 3499559803) Lab Interpretation (test Abnormal code = 23884-1) [facility] HospitalHEPATIC FUNCTION PANEL (22432) (ALB,T.PRO,BILI T,BU/BC,ALT,AST,ALK PHOS)2020-08-22 11:12:00 Test Item Value Reference Range Interpretation Comments TOTAL BILI (test code = 5143667853) 0.6 mg/dL 0.1-1.1 BILI UNCON (test code = 1653905192) 0.2 mg/dL 0.1-1.1 BILI CONJ (test code = 9621835648) 0.0 mg/dL 0-0.3 T PROTEIN (test code = 7594540878) 6.0 g/dL 6.3-8.2 L ALBUMIN (test code = 7392442108) 2.8 g/dL 3.5-5 L ALK PHOS (test code = 8113693707) 222 U/L 34-122 H ALTv (test code = 1742-6) 27 U/L 5-50 AST(SGOT) (test code = 0599599860) 30 U/L 13-40 Lab Interpretation (test code = Abnormal 92405-9) [facility] GLUCOSE (AUTOMATED)2020-08-22 10:11:00 Test Item Value Reference Range Interpretation Comments POCT GLU (test code = 7835865857) 196 mg/dL 70-110 H Lab Interpretation (test code = Abnormal 47410-9) [facility] GLUCOSE (AUTOMATED)2020-08-22 07:15:00 Test Item Value Reference Range Interpretation Comments POCT GLU (test code = 1577838785) 183 mg/dL 70-110 H Lab Interpretation (test code = Abnormal 90461-9) [facility] GLUCOSE (AUTOMATED)2020-08-22 02:30:00 Test Item Value Reference Range Interpretation Comments POCT GLU (test code = 7947233985) 295 mg/dL 70-110 H Lab Interpretation (test code = Abnormal 42525-3) [facility] GLUCOSE (AUTOMATED)2020-08-21 23:46:00 Test Item Value Reference Range Interpretation Comments POCT GLU (test code = 8038765489) 258 mg/dL 70-110 H Lab Interpretation (test code = Abnormal 81223-8) [facility] HospitalC-REACTIVE [id number] 18:50:00 Test Item Value Reference Range Interpretation Comments CRP (test code = 2241257783) 15.5 mg/dL <0.8 H Lab Interpretation (test code = Abnormal 12416-1) [facility]2020-08-21 18:21:00 Test Item Value Reference Range Interpretation Comments POCT GLU (test code = 5024304296) 297 mg/dL 70-110 H Lab Interpretation (test code = Abnormal 04275-9) [facility] HospitalETHANOL2020-11-09 16:24:00 Test Item Value Reference Range Interpretation Comments ALCOHOL (test code = <10 mg/dL 5765331929) JAMES (test code = Toxic Greater than or JAMES) equal to 80 mg/dL. NOTE: Whole blood values are approximately 10% to 15% lower than serum and plasma. [facility] HospitalGAL[facility]CLC ONLY - URINE DRUG (IMMUNOASSAY) - 4 ER [id number] 15:36:00 Test Item Value Reference Range Interpretation Comments AMPHET (test code = Negative Negative 5727481892) Cocaine Metabolite (test Negative Negative code = 6219256679) OPIATES (test code = Presumptive Positive Negative A 6937131640) THC (test code = Negative Negative 5286078219) JAMES (test code = JAMES) Urine Drug Cutoff Ranges Amphetamine: ? 1,000 ng/mLCocaine: ? 150 ng/mLOpiates: ? 300 ng/mLCannabinoids: ?50 ng/mL The results are to be used only for medical (i.e., treatment) purposes. Unconfirmed screening results must not be used for non-medical purposes (e.g., employment testing, legal testing). Lab Interpretation (test Abnormal code = 37749-2) [facility] ONLY - SYPHILIS [id number] 15:04:00 Test Item Value Reference Range Interpretation Comments Syphilis IgG/IgM (test Non-reactive Non-reactive code = 25037-9) JAMES (test code = JAMES) Non-reactive - No serologic evidence of T. pallidum infection. Cannot exclude incubating or early syphilis. Submit a second specimen in 2-4 weeks if syphilis is clinically suspected. Equivocal - Further testing to follow. Reactive - Further testing to follow. Lab Interpretation (test Normal code = 68896-2) [facility] HospitalUrinalysis2020-11-09 14:52:00 Test Item Value Reference Range Interpretation Comments APPEARANCE (test code = Clear Clear 5387619457) COLOR (test code = Yellow Yellow 2751720583) PH (test code = 4.8-8.0 7976908142) SP GRAVITY (test code = 1.003-1.030 1200957189) GLU U QUAL (test code = 500 mg/dL Normal A 0803440032) BLOOD (test code = Negative Negative 6276689076) KETONES (test code = 20 mg/dL Negative A 8083275430) PROTEIN (test code = Negative Negative 2887-8) UROBILIN (test code = Normal Normal 8642705849) BILIRUBIN (test code = Negative Negative 4633886557) NITRITE (test code = Negative Negative 4663530081) LEUK RYAN (test code = Negative Negative 0187396251) RBC/HPF (test code = <1 See_Comment [Autom ated message] 0045338952) The system [employer] generated this result transmit ronan reference range : 0 - 3 HPF. The refe rence range was not u sed to interpret th is result as normal/abnormal . WBC/HPF (test code = See_Comment [Autom ated message] 1701323025) The system [employer] generated this result transmit ronan reference range : 0 - 5 HPF. The refe rence range was not u sed to interpret th is result as normal/abnormal . BACTERIA (test code = Negative Negative 7316268306) MUCOUS (test code = Slight Negative LPF A 7685795703) Lab Interpretation (test Abnormal code = 06509-7) [facility] HospitalACTIVATED PARTIAL THRMPLAS [id number] 13:45:00 Test Item Value Reference Range Interpretation Comments APTT Patient (test code = See_Comment [ Automated message] 3173-2) The system [employer] generated this result transmitted ref erence range: 26 - 36 Seconds. The re ference range was not u sed to interpret this result as normal/abnor mal. Lab Interpretation (test Normal code = 22421-1) [facility]PO[facility])2020-08-21 13:45:00 Test Item Value Reference Range Interpretation Comments POCT GLU (test code = 9427929702) 246 mg/dL 70-110 H Lab Interpretation (test code = Abnormal 63071-1) [facility] HospitalHIV 1/2 AG-AB WITH [id number] 12:32:00 Test Item Value Reference Range Interpretation Comments HIV Negative Negative Semi-quantitative (test code = 48754-3) JAMES (test code = Non-reactive for HIV-1 JAMES) antigen and HIV-1/HIV-2 antibodies. ?No laboratory evidence of HIV infection. ?Repeat in 2-4 weeks if acute HIV infection is suspected. [facility] HospitalCBC WITH [id number] 12:18:00 Test Item Value Reference Range Interpretation [...] RDW-SD (test code = 44.4 fL 38.5-51.6 64867-3) RDW-CV (test code = 14.5 % 12.1-15.4 788-0) PLT (test code = See_Comment H [Automated 777-3) message] The sy stem which generated this result transmitted reference range : 150 - 328 10*3/ ?L. The reference r torito was not used to interpret this result as normal/abnormal . MPV (test code = 8.5 fL 9.8-13 L 18442-3) NRBC/100 WBC (test See_Comment [Automat ed code = 7673573771) message] The system which generated this result transmitted reference range : 0.0 - 10.0 /100 WBCs. The refer ence range was not u sed to interpret th is result as normal/abnormal . NRBC x10^3 (test code <0.01 See_Comment [Auto mated = 4400790664) message] The s ystem which generated this result transmitted reference range : 10*3/?L. The reference range was not used to interpret this result as normal/abnormal . GRAN MAT (NEUT) % 90.4 % (test code = 770-8) IMM GRAN % (test code 1.30 % = 5297418325) LYMPH % (test code = 7.1 % 736-9) MONO % (test code = 0.5 % 5905-5) EOS % (test code = 0.1 % 713-8) BASO % (test code = 0.6 % 706-2) GRAN MAT x10^3(ANC) 7.74 10*3/uL 1.99-6.95 H (test code = 7422199457) IMM GRAN x10^3 (test 0.11 10*3/uL 0-0.06 H code = 4205527631) LYMPH x10^3 (test code 0.61 10*3/uL 1.09-3.23 L = 731-0) MONO x10^3 (test code 0.04 10*3/uL 0.36-1.02 L = 742-7) EOS x10^3 (test code = <0.03 0.06-0.53 L 711-2) BASO x10^3 (test code 0.05 10*3/uL 0.01-0.09 = 704-7) POLYCHROMASIA (test 2+ See_Comment [Automa ronan code = 85932-6) message] The system which generated this result transmitted reference range : 2+. The referen ce range was not u sed to interpret th is result as normal/abnormal . BANDS (test code = Increased A 8616762959) Lab Interpretation Abnormal (test code = 74283-0) [facility] 11:[facility]00 Test Item Value Reference Range Interpretation Comments Procalcitonin (test 0.36 ng/mL <0.07 H code = 9207507726) JAMES (test code = JAMES) INTERPRETATION OF [...] lung abscess/empyema. For further information please refer to:[email or web address] Lab Interpretation Abnormal (test code = 80558-3) [facility]LANDATE [id number] 10:53:00 Test Item Value Reference Range Interpretation Comments LDH (test code = 1443168405) 351 U/L 300-600 Lab Interpretation (test code = Normal 81019-0) [facility]SEDIMENTATION [id number] 10:07:00 Test Item Value Reference Range Interpretation Comments ESR (test code = See_Comment H [Automated message] 5000088720) The system [employer] generated this result transmitted ref erence range: 0 - 10 m m/HR. The reference r torito was not used to interpret this result as normal/abnor mal. Lab Interpretation (test Abnormal code = 38393-2) [facility] (AUTOMATED)2020-08-21 09:45:00 Test Item Value Reference Range Interpretation Comments POCT GLU (test code = 3168868730) 287 mg/dL 70-110 H Lab Interpretation (test code = Abnormal 28594-8) [facility]Glycosylated Hemoglobin (A1C)2020-08-21 09:29:00 Test Item Value Reference Range Interpretation Comments HGB A1C (test code = 4548-4) 9.8 % 4-6 H Lab Interpretation (test code = Abnormal 69210-0) [facility]COVID[facility] (ID NOW RAPID TESTING)2020-08-21 09:13:00 Test Item Value Reference Range Interpretation Comments SARS-CoV-2 Rapid ID NOW Not Detected Not Detected (test code = 97785-5) JAMES (test code = JAMES) ID NOW COVID-19 Assay is an isothermal nucleic acid amplification test intended for the qualitative detection of nucleic acid from SARS-CoV-2 viral RNA in nasopharyngeal (STAFF ATTORNEY) specimens. It is used under Emergency Use [...] indicated. Lab Interpretation Normal (test code = 72991-0) [facility] HospitalProthrombin Time / [id number] 08:59:00 Test Item Value Reference Range Interpretation Comments PROTIME PATIENT (test See_Comment H [Auto mated message] code = 5964-2) The system [employer] generated this result transmitted ref erence range: 10.1 - 1 2.6 Seconds. The reference range was not used to int erpret this result as normal/abnormal . INR (test code = 6301-6) Nor mal INR <1.1; Warfarin Therap eutic range 2.0 to 3. 0 or 2.5 to 3.5, dep ending upon the indica tions. Lab Interpretation (test Abnormal code = 44577-5) [facility]aPTT2020-[facility] 08:59:00 Test Item Value Reference Range Interpretation Comments APTT Patient (test code = See_Comment [ Automated message] 3173-2) The system [employer] generated this result transmitted ref erence range: 26 - 36 Seconds. The re ference range was not u sed to interpret this result as normal/abnor mal. Lab Interpretation (test Normal code = 45583-3) [facility] HospitalBASI METABOLIC PANEL (NA, K, CL, CO2, GLUCOSE, BUN, CREATININE, CA)2020-08-21 08:52:00 Test Item Value Reference Range Interpretation Comments NA (test code = 136 mmol/L 135-145 7363532426) K (test code = 4.3 mmol/L 3.5-5 8171236271) CL (test code = 104 mmol/L 98-108 4478605004) CO2 TOTAL (test code = 24 mmol/L 23-31 3681097982) AGAP (test code = 2-16 8093868733) BUN (test code = 8 mg/dL 7-23 5732150297) GLUCOSE (test code = 308 mg/dL 70-110 H 7054631926) CREATININE (test code = 0.72 mg/dL 0.6-1.25 5037171512) CALCIUM (test code = 7.8 mg/dL 8.6-10.6 L 2146925605) eGFR Calculation mL/min/1.73m2 (Non-) (test code = 7174176266) eGFR Calculation mL/min/1.73m2 () (test code = 5928067838) JAMES (test code = JAMES) Association of [...] tests). Lab Interpretation Abnormal (test code = 19506-8) [facility] HospitalHEPATIC FUNCTION PANEL (70262) (ALB,T.PRO,BILI T,BU/BC,ALT,AST,ALK PHOS)2020-08-21 08:52:00 Test Item Value Reference Range Interpretation Comments TOTAL BILI (test code = 2198124306) 0.8 mg/dL 0.1-1.1 BILI UNCON (test code = 5377347484) 0.3 mg/dL 0.1-1.1 BILI CONJ (test code = 7417341901) 0.0 mg/dL 0-0.3 T PROTEIN (test code = 2906084343) 5.7 g/dL 6.3-8.2 L ALBUMIN (test code = 0658252495) 2.7 g/dL 3.5-5 L ALK PHOS (test code = 6464566288) 245 U/L 34-122 H ALTv (test code = 1742-6) 37 U/L 5-50 AST(SGOT) (test code = 1949456272) 43 U/L 13-40 H Lab Interpretation (test code = Abnormal 11363-8) [facility]
--- NOTE | 2022-10-08 19:31 | EDPHYS ---
Physician Documentation [facility] Name: Kiel Ngo Age: 71 yrs Sex: Male : 1950 Arrival Date: 10/08/2022 Time: 19:29 Bed Waiting Private MD: LAURIE Physician Michael Bosch HPI: 10/08 19:30 This 71 yrs old Male presents to ER via Unassigned with complaints of chronic hip pain. jmm 19:35 Onset: The symptoms/episode began/occurred gradually. This is a 71 year old male with a jmm history of chronic hip pain that presents to the ED with complaints of ongoing pain. Patient was seen yesterday for a similar episode. Patient given ketorlac and valium. Patient denies any new character of pain. . ROS: 19:35 Constitutional: Negative for fever, chills, and weight loss, Cardiovascular: Negative jmm for chest pain, palpitations, and edema, Respiratory: Negative for shortness of breath, cough, wheezing, and pleuritic chest pain. 19:35 MS/extremity: Positive for pain. 19:35 All other systems are negative. Vital Signs: 19:39 BP 130 / 72; Pulse 80; Resp 18; Pulse Ox 99% on R/A; Pain 10/10; kl MDM: 19:30 Patient medically screened. [facility] Administered Medications: 19:35 Drug: Ketorolac 30 mg Route: IM; Site: left deltoid; kl Disposition: 20:58 Co-signature as Attending Physician, Michael Bosch MD. rn Disposition Summary: 10/08/22 19:30 Discharge Ordered Location: Home [facility] Condition: Stable [facility] Diagnosis - Chronic Hip Pain [facility] Followup: [facility] - With: Private Physician - When: 2 - 3 days - Reason: Recheck today's complaints, Continuance of care, Re-evaluation by your physician Discharge Instructions: - Discharge Summary Sheet [facility] - Hip Pain [facility] Forms: - Medication Reconciliation Form [facility] - Thank You Letter [facility] - Antibiotic Education [facility] - Prescription Opioid Use [facility] Prescriptions: - orphenadrine citrate 100 mg Oral Tablet Sustained Release - take 1 tablet by ORAL route 2 times per day As needed; 20 tablet; Refills: 0, m Product Selection Permitted Signatures: Letty Mccormack RN RN kl MickaKirby mccann PA PA jmm Nieto, Roman, MD MD rn
[2022-10-08] MEDS ORDERED: KETOROLAC 30 MG/ML INJ ONE (19:38)
--- NOTE | 2022-10-08 19:44 | ER ---
Nurse's Notes [facility] Name: Kiel Ngo Age: 71 yrs Sex: Male : 1950 Arrival Date: 10/08/2022 Time: 19:29 Bed Waiting Private MD: Diagnosis: Chronic Hip Pain Presentation: 10/08 19:39 Chief complaint: Patient states: right hip pain pain is chronic out of pain medications reportedly has appt with pain magmt on Friday. Coronavirus screen: Vaccine status: Patient reports receiving the 2nd dose of the covid vaccine. Ebola Screen: Patient negative for fever greater than or equal to 101.5 degrees Fahrenheit, and additional compatible Ebola Virus Disease symptoms. Initial Sepsis Screen: Does the patient meet any 2 criteria? No. Patient's initial sepsis screen is negative. Does the patient have a suspected source of infection? No. Patient's initial sepsis screen is negative. Risk Assessment: Do you want to hurt yourself or someone else? Patient reports no desire to harm self or others. 19:39 Method Of Arrival: EMS: [facility] 19:39 Acuity: JOZEF 5 Triage Assessment: 19:41 General: Appears in no apparent distress. comfortable, Behavior is calm, cooperative. Pain: Complains of pain in right leg. Screenin:42 [facility] ED Fall Risk Assessment (Adult) History of falling in the last 3 months, including since admission No falls in past 3 months (0 pts) Confusion or Disorientation No (0 pts) Intoxicated or Sedated No (0 pts) Impaired Gait No (0 pts) Mobility Assist Device Used No (0 pt) Altered Elimination No (0 pt) Score/Fall Risk Level 0 - 2 = Low Risk. Abuse screen: Denies threats or abuse. Nutritional screening: No deficits noted. Tuberculosis screening: No symptoms or risk factors identified. Assessment: 19:41 Reassessment: see triage assessment. Vital Signs: 19:39 BP 130 / 72; Pulse 80; Resp 18; Pulse Ox 99% on R/A; Pain 10/10; ED Course: 19:29 Patient arrived in ED. [facility] 19:29 Kirby Short PA is PHCP. [facility] 19:29 Michael Bosch MD is Attending Physician. [facility] 19:41 Triage completed. kl 19:43 Patient has correct armband on for positive identification. kl 19:43 No provider procedures requiring assistance completed. Patient did not have IV access kl during this emergency room visit. Administered Medications: 19:35 Drug: Ketorolac 30 mg Route: IM; Site: left deltoid; Medication: 19:42 VIS not applicable for this client. kl Outcome: 19:30 Discharge ordered by MD. nye 19:43 Patient left the ED. kl Signatures: Letty Mccormack RN RN kl Mickail, Joel, PA PA jmm Alexander, Jessica ja2
[2022-10-08 19:58] VITALS: BP 130/72; O2SAT 99
== END 2022-10-08 19:43 | disposition home or self-care (01) ==
LOC: ER 19:15
DX: G89.29 Other chronic pain (principal)
CPT/HCPCS: 96372; 99283

== ENCOUNTER 2022-10-13 11:43 | Emergency (ER) | payer OTHER ==
--- OUTSIDE RECORDS SUMMARY | 2022-10-13 11:51 | XMS REPORT | Continuity of Care Document ---
:1950 Author Organization [facility] t Address [address] [place] [address] Care Team Providers Name Role Phone CALVIN [...] PACO LACEY Attending Clinician Unavailable Doctor Unassigned, [place] Attending Clinician Unavailable Wilder VILLAREAL, Angi K.HWong Attending Clinician Jl Mccabe MD Attending Clinician Kelly Washington MD Attending Clinician [phone] Mukul Gallardo MD Attending Clinician MUKUL GALLARDO Admitting Clinician Unavailable Harrison MD, Premal G Admitting Clinician KRUPA VIKA G Admitting Clinician Unavailable Nicci VILLAREAL, Mukul Anand Admitting Clinician Payers Payer Name Policy Type Policy Number Effective Date Expiration Date Tony doe MEDICARE PART A [id number] 2007 \\T\\ B 00:00:00 [employer] INDEMNITY [id number] 2016 00:00:00 MEDICARE PART A [id number] 2014 \\T\\ B - MEDICARE 00:00:00 INDEMNITY/TRADITIO [id number] NAL CHOICE - [employer] 00:00:00 Problems Condition [...] ents Source Name Type Date Date Clinician [place] [facility] Active Rash 2019- Univers ty to [...] Quantity Comments Source Exposure to Not sure [place] of SARS-CoV-2 [place] [facility] (event) Branch History of Chews Tobacco University of tobacco use [place] [facility] History SDOH 2020-11-17 2020-11-17 5 University o f Financial 00:00:00 00:00:00 [place] [facility] History SDSC Food 2020-11-17 2020-11-17 1 Univers ity of Worry 00:00:00 00:00:00 [place] [facility] History SDOH Food 2020-11-17 2020-11-17 1 Univers ity of Scarcity 00:00:00 00:00:00 [place] [facility] History SDOH 2020-11-17 2020-11-17 1 University o f Transport Med 00:00:00 00:00:00 [place] [facility] al [facility] History SDOH 2020-11-17 2020-11-17 1 University o f Transport Non-Med 00:00:00 00:00:00 [facility] edical Branch Education 2020-11-16 2020-11-16 21 [facility] of 00:00:00 00:00:00 [facility] Alcohol intake 2020-11-16 2020-11-16 Ex-drinker [facility] 00:00:00 00:00:00 (finding) [facility] Tobacco use and 2020-08-21 2020-08-21 Former user Universi ty of exposure 00:00:00 00:00:00 [facility] Tobacco Comment 2020-08-21 2020-08-21 quit 10 years Univer sity of 00:00:00 00:00:00 ago, started in [place] Med ical 2nd year of Branch college (~40 years) Alcohol Comment 2020-08-21 2020-08-21 Used to have 2-3 Uni versity of 00:00:00 00:00:00 six-packs of [place] [facility]ica l beer daily x 20 Branch years, quit 2004 History [facility] 2020-08-21 2020-08-21 99 University o f Alcohol Frequency 00:00:00 00:00:00 [place] [facility] ed[facility] History [facility] 2020-08-21 2020-08-21 99 [place] o f Alcohol Std 00:00:00 00:00:00 [place] [facility] Drinks Branch History [facility] 2020-08-21 2020-08-21 99 [place] o f Alcohol Binge 00:00:00 00:00:00 [facility] al [place] Sex Assigned At [birth year] Universit y of 00:00:00 00:00:00 [facility] Smoking Status Start Date Stop Date Source Never smoker [facility] Medications Ordered Filled Start Stop Current [...] by ity of tablet 22:47: mouth at [place] 18 bedtime. Medical Branch HYDROmorpho 2020-0 Yes [...] by ity of tablet 22:47: mouth at [place] 18 bedtime. Medical Branch HYDROmorpho 0 Yes [...] by ity of tablet 16:47: mouth at [place] 18 bedtime. Medical Branch HYDROmorpho 0 Yes [...] 0845, Until Discontinu ed, Routine amLODIPine Yes [id number] 10mg Take 1 Univers 10 mg 3-07 tablet by ity of tablet 00:00: mouth [place] 00 daily. Medical Branch clotrimazol Yes [id number] Apply to Univers e 1 % 3-07 face/ears, ity of topical 00:00: armpits, [place] cream 00 pannus and Medical back/any Branch other rash twice a day fluocinonid 0 Yes [id number] Apply to Univers e 0.05 % 3-07 scalp ity of solution 00:00: twice a [place] 00 day Medical Branch triamcinolo Yes [id number] Apply to Univers ne 3-07 back, ity of acetonide 00:00: armpits [place] 0.1 % cream 00 and other Med ical affected Branch areas twice daily, please mix with clotrimazo le hydrOXYzine Yes [id number] 10mg Take 1 Univers 10 mg 3-07 tablet by ity of tablet 00:00: mouth 2 00 (two) Medical times Branch daily. amLODIPine Yes [id number] 10mg Take 1 Univers 10 mg 3-07 tablet by ity of tablet 00:00: mouth [place] 00 daily. Medical Branch clotrimazol Yes [id number] Apply to Univers e 1 % 3-07 face/ears, ity of topical 00:00: armpits, [place] cream 00 pannus and Medical back/any Branch other rash twice a day fluocinonid Yes [id number] Apply to Univers e 0.05 % 3-07 scalp ity of solution 00:00: twice a day Medical Branch triamcinolo Yes [id number] Apply to Univers ne 3-07 back, ity of acetonide 00:00: armpits [place] 0.1 % cream 00 and other Med ical affected Branch areas twice daily, please mix with clotrimazo le hydrOXYzine Yes [id number] 10mg Take 1 Univers 10 mg 3-07 tablet by ity of tablet 00:00: mouth 2 [place] 00 (two) Medical times Branch daily. amLODIPine Yes [id number] 10mg Take 1 Univers 10 mg 3-07 tablet by ity of tablet 00:00: mouth [place] 00 daily. Medical Branch clotrimazol 0 Yes [id number] Apply to Univers e 1 % 3-07 face/ears, ity of topical 00:00: armpits, [place] cream 00 pannus and Medical back/any Branch other rash twice a day fluocinonid 2020-0 Yes [id number] Apply to Univers e 0.05 % 3-07 scalp ity of solution 00:00: twice a day Medical Branch triamcinolo 2020-0 Yes [id number] Apply to Univers ne 3-07 back, ity of acetonide 00:00: armpits [place] 0.1 % cream 00 and other Med ical affected Branch areas twice daily, please mix with clotrimazo le hydrOXYzine Yes [id number] 10mg Take 1 Univers 10 mg 3-07 tablet by ity of tablet 00:00: mouth 2 [place] (two) Medical times Branch daily. amLODIPine Yes [id number] 10mg Take 1 Univers 10 mg 3-07 tablet by ity of tablet 00:00: mouth [place] 00 daily. Medical Branch clotrimazol Yes [id number] Apply to Univers e 1 % 3-07 face/ears, ity of topical 00:00: armpits, [place] cream 00 pannus and Medical back/any Branch other rash twice a day fluocinonid Yes [id number] Apply to Univers e 0.05 % 3-07 scalp ity of solution 00:00: twice a day Medical Branch triamcinolo 0 Yes [id number] Apply to Univers ne 3-07 back, ity of acetonide 00:00: armpits [place] 0.1 % cream 00 and other Med ical affected Branch areas twice daily, please mix with clotrimazo le hydrOXYzine Yes [id number] 10mg Take 1 Univers 10 mg 3- tablet by ity of tablet 00:00: mouth 2 (two) Medical times Branch daily. cephALEXin 2020-2020- No [id number] 500mg Take 1 Univers 500 mg -04 14- capsule by ity of capsule 00:00: 05:59 mouth [place] 00 :00 every 6 Medical (six) Branch hours for 3 days. cephALEXin 2020-0 2020- No [id number] 500mg Take 1 Univers 500 mg 3-04 14- capsule by ity of capsule 00:00: 05:59 mouth [place] 00 :00 every 6 Medical (six) Branch hours for 3 days. hydrOXYzine 2020-2020- No [id number] 10mg Take 1 Univers 10 mg 3- 03-07 tablet by ity of tablet 00:00: 00:00 mouth 2 [place] 00 :00 (two) Medical times [place] daily. morpHINE Yes 4mg 4 mg, Slow Uni vers injection 4 -06 IV Push, ity of mg 22:40: Q6HPRN, [place] 02 Starting Medical 12/16/20 [place] at 1640, Until Discontinu ed, Routine, Pain [...] 00 :00 dose, Sat Medical 12/16/20 at [place] 0515, Routine lactated 2020- No 1000mL at 125 Univ ers ringers IV 12-16 03-06 mL/hr, ity of infusion 01:00: 00:16 1,000 mL, [place] 1,000 mL 00 :00 IV Medical Infusion, [place] ONCE, 1 dose, 12/15/20 at 1900, Routine iohexol 2020- No 100mL 100 mL, Unive rs (OMNIPAQUE 12-15-05 Intravenou it y of 350 22:24: 22:24 s, ONCE, 1 [place] BULK-100 00 :00 dose, Fri Medica l mL) 12/15/20 at [place] injection 1645, 100 mL Routine cephALEXin 2020- [...] 999 [facility] [place] [facility] ers (NS) bolus 12-15-05 mL/hr, 500 it y of infusion 16:00: 15:26 mL, IV [place] 500 mL 00 :00 Piggyback, Medical ONCE, 1 Branch dose, Fri12/15/20 at 1000, STAT HYDROmorpho Yes 4mg 4 mg, [facility] [place] [facility] ne 05 Oral, BID, ity of (DILAUDID) 15:30: First dose [place] tablet 4 mg 00 (after Medica l last Branch modificati on) on Fri12/15/20 at 0930, Until Discontinu ed, Routine amLODIPine 2020- No [id number] 10mg Take 1 Univers 10 mg 12-1507 tablet by ity of tablet 00:00: 00:00 mouth [place] 00 :00 daily. Medical Branch HYDROmorpho 2020- No 1mg 1 mg, [facility] [place] [facility] ers ne 12-14 03-05 Oral, ity of (DILAUDID) 17:35: 15:18 Q6HPRN, [place] tablet 1 mg 30 :06 Starting Medi [facility] 12/14/20 Branch at 1135, Until Fri12/15/20 at 0918, Routine, Pain (scale 7-10) hydrOXYzine Yes 10mg 10 mg, [facility] [place] [facility] ers (ATARAX) 304 Oral, BID, ity o f tablet 10 17:30: First dose [place] mg 00 on [facility] 12/14/20 at Branch 1130, Until Discontinu ed, Routine lisinopriL 0 Yes 5mg 5 mg, Univer s (PRINIVIL,Z -04 Oral, ity of ESTRIL) 17:30: DAILY, [place] tablet 5 mg 00 First dose Me dical on [facility] Branch 12/14/20 at 1130, Until Discontinu ed, Routine triamcinolo 2020- No [id number] Apply to Univers ne 12-14 back, ity of acetonide 00:00: 00:00 armpits [place] 0.1 % cream 00 :00 and other Med ical affected Branch areas twice daily, please mix with clotrimazo le clotrimazol 2020- No [id number] Apply to Univers e 1 % 12-14 face/ears, ity of topical 00:00: 00:00 armpits, [place] cream 00 :00 pannus and Medical back/any Branch other rash twice a day fluocinonid 2020- No [id number] Apply to Univers e 0.05 % 12-14 scalp ity of solution 00:00: 00:00 twice a [place] 00 :00 day Medical Branch hydrOXYzine 2020- No [id number] 10mg Take 1 Univers 10 mg 12-14 [...] 1 [place] mg 00 :00 dose, [facility] 12/12/20 at Branch 2145, Routine insulin Yes 15U 15 Units, [facility] rs glargine 12-12 Subcutaneo ity o f (LANTUS 15:00: us, DAILY, [place] U-100) 00 First dose Medical injection on [facility] 15 Units 12/12/20 at 0900, Until Discontinu ed hydrOXYzine 2020- No 10mg 10 mg, Uni vers (ATARAX) 12-12 03-02 Oral, ity of tablet 10 08:15: 07:33 ONCE, 1 [place] mg 00 :00 dose, [facility] 12/12/20 at Branch 0215, Routine mirtazapine Yes 7.5mg 7.5 mg, Un toi (REMERON) 3-02 Oral, QHS, ity of tablet 7.5 03:00: First dose [place] mg 00 on [facility] 12/11/20 at Branch 2100, Until Discontinu ed, [...] Oral, ity of (TYLENOL 23:23: 13:49 Q6HPRN, [place] #3) 300-30 43 :08 Starting Medic al [...] 00 Fri12/11/20 Me dical cream at 1315, [place] Until Discontinu ed, Routine hydrocortis 0 Yes [...] ity of 1,000 mg in 19:00: 17:35 [place], [place] NaCl 0.9% 00 :26 Q8H ABX, [...] ed, Routine insulin Yes 5U 5 Units, [facility] lispro 12-11 Subcutaneo ity of (human) 18:00: us, TID [place] (HumaLOG 00 MEALS, Medical U-100) First dose Branch injection 5 on Mon Units 12/11/20 at 1200, Until Discontinu ed Polyethylen Yes 17g 17 g, [facility] rs e Glycol 12-11 Oral, ity of 3350 17:47: [id number], [place] (MIRALAX) 05 Starting Medica l powder 17 g 12/11/20 Br anch at 1147, Until Discontinu ed, Routine, Constipati on acetaminoph Yes 650mg 650 mg, Un toi en 12-11 Oral, ity of (TYLENOL) 16:51: Q6HPRN, [place] tablet 650 28 Starting Medic al mg [...] 0630, STAT piperacilli No 3.375g 3.375 g, [facility] n-tazobacta 12-11 IV ity of m (ZOSYN) 12:00: 17:48 Piggyback, [place] injection 00 :24 Q6H, First Medi jose c 3.375 g dose on Branch Fri12/11/20 at 0600, Until Discontinu ed, KAHLIL
Re ason for Anti-Infec tive: Empiric Therapy for Suspected Infection< br>Empiric Therapy Site: Skin / Soft tissue
Duration of therapy: 72 hours sennosides- Yes [id number] 1{tbl} Take [address] [facility] docusate 2-09 tablet by ity of sodium 00:00: mouth 2 [place] 8.6-50 mg 00 (two) Medical per tablet times Branch daily. hydrocortis Yes [id number] Apply to [facility] one 2.5 % 11-21 affected ity of cream 00:00: area(s) 2 [place] 00 (two) Medical times Branch daily. blood sugar Yes [id number] Use to [facility] diagnostic 2 check ity of (FREESTYLE 00:00: blood [place] LITE 00 glucose Medical STRIPS) 4-5 times Branch strip daily. Polyethylen Yes [id number] 17g Take 1 Univers e Glycol 2-09 Packet by ity of 3350 17 00:00: mouth [place] gram powder 00 every 24 Medi jose c (twenty-fo Branch ur) hours as needed for Constipati on. sennosides- Yes [id number] 1{tbl} Take 1 Univers docusate 2-09 tablet by ity of sodium 00:00: mouth 2 [place] 8.6-50 mg 00 (two) Medical per tablet times Branch daily. hydrocortis Yes [id number] Apply to Univers one 2.5 % 2-09 affected ity of cream 00:00: area(s) 2 [place] 00 (two) Medical times Branch daily. blood sugar Yes [id number] Use to Univers diagnostic 11-21 check ity of (FREESTYLE 00:00: blood [place] LITE 00 glucose Medical STRIPS) 4-5 times Branch strip daily. Polyethylen Yes [id number] 17g Take 1 Univers e Glycol 2-09 Packet by ity of 3350 17 00:00: mouth [place] gram powder 00 every 24 Medi jose c (twenty-fo Branch ur) hours as needed for Constipati on. sennosides- Yes [id number] 1{tbl} Take 1 Univers docusate 2-09 tablet by ity of sodium 00:00: mouth 2 [place] 8.6-50 mg 00 (two) Medical per tablet times Branch daily. hydrocortis Yes [id number] Apply to Univers one 2.5 % 2-09 affected ity of cream 00:00: area(s) 2 [place] 00 (two) Medical times Branch daily. blood sugar Yes [id number] Use to Univers diagnostic 11-21 check ity of (FREESTYLE 00:00: blood [place] LITE 00 glucose Medical STRIPS) 4-5 times Branch strip daily. Polyethylen 2020-0 Yes [id number] 17g Take 1 Univers e Glycol 2-09 Packet by ity of 3350 17 00:00: mouth [place] gram powder 00 every 24 Medi jose c (twenty-fo Branch ur) hours as needed for Constipati on. sennosides- Yes [id number] 1{tbl} Take 1 Univers docusate 2-09 tablet by ity of sodium 00:00: mouth 2 [place] 8.6-50 mg 00 (two) Medical per tablet times Branch daily. hydrocortis Yes [id number] Apply to [facility] one 2.5 % 11-21 affected ity of cream 00:00: area(s) 2 [place] 00 (two) Medical times Branch daily. blood sugar Yes [id number] Use to [facility] diagnostic 11-21 check ity of (FREESTYLE 00:00: blood [place] LITE 00 glucose Medical STRIPS) 4-5 times Branch strip daily. Polyethylen Yes [id number] 17g Take 1 Univers e Glycol 11-21 Packet by ity of 3350 17 00:00: mouth [place] gram powder 00 every 24 Medi jose c (twenty-fo Branch ur) hours as needed for Constipati on. Insulin 2020- No [id number] 15U inject 15 Univers Glargine 11-21- Units ity of (LANTUS 00:00: 05:59 under the [employer] SOLOSTAR 00 :00 skin every Medic al U-100 morning Branch INSULIN) for 30 100 unit/mL days. (3 mL) injection venlafaxine 2020- No [id number] 150mg Take 1 Univers XR 150 mg 11-21 capsule by ity of 24 hr 00:00: 05:59 mouth 3 [place] capsule 00 :00 (three) Medical times Branch daily for 30 days. Insulin 2020- No [id number] 15U inject 15 Univers Glargine 11-21-12 Units ity of (LANTUS 00:00: 05:59 under the [employer] SOLOSTAR 00 :00 skin every Medic al U-100 morning Branch INSULIN) for 30 100 unit/mL days. (3 mL) injection venlafaxine 2020- No [id number] 150mg Take 1 Univers XR 150 mg 11-21- capsule by ity of 24 hr 00:00: 05:59 mouth 3 [place] capsule 00 :00 (three) Medical times Branch daily for 30 days. triamcinolo 2020- No [id number] Apply to [facility] ne 11-21-04 area(s) 2 ity of acetonide 00:00: 00:00 (two) [place] 0.1 % cream 00 :00 times Medical daily. Branch cephALEXin 2020- No [id number] 1000mg Take 2 Univers 500 mg 11-21 capsules ity of capsule 00:00: 00:00 by mouth 3 [place] 00 :00 (three) Medical times Branch daily. doxycycline 2020- No [id number] 100mg Take 1 Univers hyclate 100 11-21 capsule by i ty of mg capsule 00:00: 00:00 mouth [place] 00 :00 every 12 Medical (twelve) Branch hours. lactobacill 2020- No [id number] 1{tbl} Take 1 Univers us 11-21 tablet by ity of acidophilus 00:00: 00:00 mouth 2 [place] 25 million 00 :00 (two) Medical cell -100 times Branch mg captab daily. bisacodyL 2020- No [id number] 10mg Insert 1 Univers 10 mg 11-21 Suppositor ity of suppository 00:00: 00:00 y into [place] 00 :00 rectum at Medical bedtime as Branch needed for Constipati on. ALPRAZolam 2020- No [id number] .25mg Take 1 Univers (XANAX) 11-21 tablet by ity of 0.25 mg 00:00: 00:00 mouth 2 [place] tablet 00 :00 (two) Medical times Branch daily. hydrOXYzine 2020- No [id number] 20mg Take 2 Univers 10 mg 11-21 [...] 3 ity of 6 mg 01:13: (three) [place] capsule 36 times Medical daily. Branch Insulin 2019-10 Yes 15U inject 15 Unive rs Glargine 1-12 Units ity of (LANTUS 01:13: under the [place] SOLOSTAR) 36 skin. Medical 100 unit/mL Branch (3 mL) InPn INSULIN 2019-10 Yes 5U inject 5 Univer s ASPART 1-12 Units ity of (NOVOLOG 01:13: under the [facility] FLEXPEN SC) 36 skin. Medical Branch [...] 3 ity of 6 mg 01:13: (three) [place] capsule 36 times Medical daily. Branch Insulin 2019-10 Yes 15U inject 15 Unive rs Glargine 1-12 Units ity of (LANTUS 01:13: under the [place] SOLOSTAR) 36 skin. Medical 100 unit/mL Branch (3 mL) InPn INSULIN 2019-10 Yes 5U inject 5 Univer s ASPART 1-12 Units ity of (NOVOLOG 01:13: under the [facility] FLEXPEN SC) 36 skin. Medical Branch [...] Units ity of (LANTUS 01:13: under the [place] SOLOSTAR) 36 skin. Medical 100 unit/mL Branch [...] mouth ity of ORAL 20:04: 00:00 daily. [place] 34 :00 Medical Branch hydrocortis 2019-10 Yes [id number] Apply to Univers one 2.5 % 1-11 affected ity of cream 00:00: area(s) 2 [place] 00 (two) Medical times Branch daily. hydrOXYzine 2019-10 Yes [id number] 20mg Take 2 Univers 10 mg 1-11 tablets by ity of tablet 00:00: mouth [place] 00 every 8 Medical (eight) Branch hours as needed for Itching or Anxiety. Polyethylen 2019-10 Yes [id number] 17g Take 1 Univers e Glycol 1-11 Packet by ity of 3350 17 00:00: mouth [place] gram powder 00 every 24 Medi jose c (twenty-fo Branch ur) hours as needed for Constipati on. hydrocortis 2019-10 Yes [id number] Apply to Univers one 2.5 % 1-11 affected ity of cream 00:00: area(s) 2 [place] 00 (two) Medical times Branch daily. hydrOXYzine 2019- Yes [id number] 20mg Take 2 Univers 10 mg 1-11 tablets by ity of tablet 00:00: mouth [place] 00 every 8 Medical (eight) Branch hours as needed for Itching or Anxiety. Polyethylen 2019- Yes [id number] 17g Take 1 Univers e Glycol 1-11 Packet by ity of 3350 17 00:00: mouth [place] gram powder 00 every 24 Medi jose c (twenty-fo Branch ur) hours as needed for Constipati on. hydrocortis 2019- Yes [id number] Apply to Univers one 2.5 % 1-11 affected ity of cream 00:00: area(s) 2 [place] (two) Medical times Branch daily. hydrOXYzine 2019-10 Yes [id number] 20mg Take 2 Univers 10 mg 1-11 tablets by ity of tablet 00:00: mouth [place] 00 every 8 Medical (eight) Branch hours as needed for Itching or Anxiety. Polyethylen 2019- Yes [id number] 17g Take 1 Univers e Glycol 1-11 Packet by ity of 3350 17 00:00: mouth [place] gram powder 00 every 24 Medi jose c (twenty-fo Branch ur) hours as needed for Constipati on. hydrocortis 2019-10 Yes [id number] Apply to Univers one 2.5 % 1-11 affected ity of cream 00:00: area(s) 2 [place] (two) Medical times Branch daily. hydrOXYzine 2019-10 Yes [id number] 20mg Take 2 Univers 10 mg 1-11 tablets by ity of tablet 00:00: mouth [place] 00 every 8 Medical (eight) Branch hours as needed for Itching or Anxiety. Polyethylen 2019-10 Yes [id number] 17g Take 1 Univers e Glycol 1-11 Packet by ity of 3350 17 00:00: mouth [place] gram powder 00 every 24 Medi jose c (twenty-fo Branch ur) hours as needed for Constipati on. hydrocortis 2019-10 Yes [id number] Apply to Univers one 2.5 % 1-11 affected ity of cream 00:00: area(s) 2 [place] 00 (two) Medical times Branch daily. hydrOXYzine 2019-10 Yes [id number] 20mg Take 2 Univers 10 mg 1-11 tablets by ity of tablet 00:00: mouth [place] 00 every 8 Medical (eight) Branch hours as needed for Itching or Anxiety. Polyethylen 2019- Yes [id number] 17g Take 1 Univers e Glycol 1-11 Packet by ity of 3350 17 00:00: mouth [place] gram powder 00 every 24 Medi jose c (twenty-fo Branch ur) hours as needed for Constipati on. hydrocortis 2019-10 Yes [id number] Apply to Univers one 2.5 % 1-11 affected ity of cream 00:00: area(s) 2 [place] 00 (two) Medical times Branch daily. hydrOXYzine 2019- Yes [id number] 20mg Take 2 Univers 10 mg 1-11 tablets by ity of tablet 00:00: mouth [place] 00 every 8 Medical (eight) Branch hours as needed for Itching or Anxiety. Polyethylen 2019- Yes [id number] 17g Take 1 Univers e Glycol 1-11 Packet by ity of 3350 17 00:00: mouth [place] gram powder 00 every 24 Medi jose c (twenty-fo Branch ur) hours as needed for Constipati on. hydrocortis 2019- Yes [id number] Apply to Univers one 2.5 % 1-11 affected ity of cream 00:00: area(s) 2 [place] 00 (two) Medical times Branch daily. hydrOXYzine 2019- Yes [id number] 20mg Take 2 Univers 10 mg 1-11 tablets by ity of tablet 00:00: mouth [place] 00 every 8 Medical (eight) Branch hours as needed for Itching or Anxiety. Polyethylen 2019- Yes [id number] 17g Take 1 Univers e Glycol 1-11 Packet by ity of 3350 17 00:00: mouth [place] gram powder 00 every 24 Medi jose c (twenty-fo Branch ur) hours as needed for Constipati on. triamcinolo 2019- 2020- No [id number] Apply to Univers ne 10-23 area(s) 2 ity of acetonide 00:00: 05:59 (two) [place] 0.1 % cream 00 :00 times Medical daily for Branch 14 days. triamcinolo 2019- 2020- No [id number] Apply to Univers ne 10-23 area(s) 2 ity of acetonide 00:00: 05:59 (two) [place] 0.1 % cream 00 :00 times Medical daily for Branch 14 days. triamcinolo 2020- 2020- No [id number] Apply to [facility] ne 10-23 area(s) 2 ity of acetonide 00:00: 05:59 (two) [place] 0.1 % cream 00 :00 times Medical daily for Branch 14 days. KCL 2019- 2020- No 40meq 40 mEq, Univers (KLOR-CON 1-10 11-10 Oral, ONCE ity of M20) tablet 16:15: 16:23 NOW, 1 [place] 40 mEq 00 :00 dose, [facility] 08/22/20 Branch at 1015, Routine HYDROmorpho 2019-10 Yes 1mg 1 mg, Unive rs ne 1-10 Oral, ity of (DILAUDID) 15:07: Q6HPRN, [place] tablet 1 mg 53 Starting [facility] 08/22/20 at 0907, Until Discontinu ed, Routine, Pain (scale 7-10) hydrocortis 2019-10 Yes Topical Uni vers one 2.5 % 1-10 (Apply To ity o f cream 02:00: Affected [place] 00 Areas), Medical BID, First Branch dose on [facility] 08/21/20 at 2000, Until Discontinu ed, Routine triamcinolo 2019-10 Yes Topical, Un toi ne 1-10 BID, First ity of acetonide 02:00: dose on [place] (TRIDERM) [facility] Medical 0.1 % cream 08/21/20 at Br anch 2000, Until Discontinu ed, Routine hydrOXYzine 2019-10 Yes 20mg 20 mg, Univ ers (ATARAX) 09 Oral, ity of tablet 20 17:39: Q8HPRN, [place] mg 12 Starting [facility] 08/21/20 at 1139, Until Discontinu ed, Routine, Itching, Anxiety sennosides- 2019-10 Yes 1{tbl} 1 tablet, Univers docusate 10-21 Oral, ity of sodium 15:00: DAILY, [place] (SENOKOT-S) 00 First dose Me dical 8.6-50 mg on [facility] per tablet 08/21/20 at 1 [...] [place] capsule 150 00 on [facility] Medica l mg 08/21/20 at Branch [...] [facility] 08/[facility]20 at 0656, Until Fri08/21/20 at 1139, Routine, Itching, Mild Rash, Congestion /Allergies , alternate with hydroxyzin e hydrOXYzine 2019-10- No 10mg 10 mg, Uni vers (ATARAX) 10-21 Oral, ity of tablet 10 10:20: 12:57 Q6HPRN, [place] mg 22 :12 Starting Medical [facility] 08/21/20 at 0420, Until Fri08/21/20 [...] 1 ity o f 09:30: 09:14 dose, [facility] 00 :00 08/21/20 at [facility] 0330, Branch Routine Polyethylen 2019-10 Yes 17g 17 g, [facility] [place] [facility] e Glycol 10-21 Oral, ity of 3350 08:29: [id number], [place] (MIRALAX) 09 Starting Medica l powder 17 g [facility] 08/21/20 at 0229, Until Discontinu ed, Routine, Constipati on lanolin 2019-10 Yes Topical, Univer s alcohol-mo- 10-21 PRN, ity of w.pet-ce[place] 08:26[place] (EUCERIN[place] 30 [facility] Medical cream 08/21/20 at Branch 0226, [...] [facility] s (BETAPACE) 10-21 mouth ity of 240 mg 07:43: 00:00 every 12 [place] tablet 30 :00 (twelve) Medical hours. Branch blood sugar Yes Use to [facility] ers diagnostic 4-25 check ity of (FREESTYLE 00:00: blood [place] LITE 00 glucose Medical STRIPS) 4-5 times Branch strip daily. blood sugar Yes Use to [facility] ers diagnostic 4-25 check ity of (FREESTYLE 00:00: blood [place] LITE 00 glucose Medical STRIPS) 4-5 times Branch strip daily. blood sugar Yes Use to [facility] ers diagnostic 4-25 check ity of (FREESTYLE 00:00: blood [place] LITE 00 glucose Medical STRIPS) 4-5 times Branch strip daily. blood sugar Yes Use to [facility] ers diagnostic 4-25 check ity of [...] 13:00:00 148 mm[Hg] Univer sity of [facility] Diastolic blood 2021-08-22 13:00:00 84 mm[Hg] Unive rsity of [facility] Heart rate 2021-08-22 13:00:00 103 /min [facility] Respiratory rate 2021-08-22 13:00:00 18 /min [facility] Oxygen saturation in 2021-08-22 13:00:00 95 /min University of [facility] Pulse oximetry [place] Body temperature 2021-08-22 12:22:00 36.72 [place] [facility] Systolic blood 2020-12-17 18:35:00 139 mm[Hg] Univer sity of [facility] Diastolic blood 2020-12-17 18:35:00 87 mm[Hg] Unive rsity of [facility] Heart rate 2020-12-17 18:35:00 110 /min [facility] Body temperature 2020-12-17 18:35:00 37.72 [place] [facility] Respiratory rate 2020-12-17 18:35:00 18 /min [facility] saturation in 2020-12-17 18:35:00 93 /min University of Ar[facility]ial [facility] Pulse oximetry Branch Body height 2020-12-12 08:21:00 180.3 cm [facility] [place] [facility] Body weight 2020-12-12 08:21:00 103.42 kg [facility] [place] [facility] BMI 2020-12-12 08:21:00 31.80 kg/m2 [facility] [place] [facility] Systolic blood 2020-12-17 18:35:00 139 mm[Hg] Univer sity of pressure [place] [facility] Diastolic blood 2020-12-17 18:35:00 87 mm[Hg] Unive rsity of pressure [place] [facility] Heart rate 2020-12-17 18:35:00 110 /min [facility] [place] [facility] Body temperature 2020-12-17 18:35:00 37.72 [place] [facility] [place] [facility] Respiratory rate 2020-12-17 18:35:00 18 /min Univ ers[facility] [place] [facility] Oxygen saturation in 2020-12-17 18:35:00 93 /min [facility] Pulse oximetry Branch Body height 2020-12-12 08:21:00 180.3 cm [facility] [place] [facility] Body weight 2020-12-12 08:21:00 103.42 kg [facility] [place] [facility] BMI 2020-12-12 08:21:00 31.80 kg/m2 [facility] [place] [facility] Systolic blood 2020-08-23 19:27:00 140 mm[Hg] Univer sity of pressure [place] [facility] Diastolic blood 2020-08-23 19:27:00 79 mm[Hg] Unive rsity of pressure [place] [facility] Heart rate 2020-08-23 19:27:00 99 /min [facility] [place] [facility] Body temperature 2020-08-23 19:27:00 36 [place] [facility] [place] [facility] Respiratory rate 2020-08-23 19:27:00 18 /min Univ ers[facility] [place] [facility] Oxygen saturation in 2020-08-23 19:27:00 93 /min University [facility] Ar[facility]ial [facility] Pulse oximetry Branch Body weight 2020-08-21 07:20:00 104.962 kg [facility] [place] [facility] BMI 2020-08-21 07:20:00 32.27 kg/m2 [facility] [place] [facility] Systolic blood 2020-08-23 19:27:00 140 mm[Hg] Univer sity of pressure [facility] Diastolic blood 2020-08-23 19:27:00 79 mm[Hg] [facility] pressure [facility] Heart rate 2020-08-23 19:27:00 99 /min [facility] Body temperature 2020-08-23 19:27:00 36 [place] [facility] Respiratory rate 2020-08-23 19:27:00 18 /min [facility] Oxygen saturation in 2020-08-23 19:27:00 93 /min [facility] blood by [facility] Pulse oximetry [place] Body weight 2020-08-21 07:20:00 104.962 kg [facility] BMI 2020-08-21 07:20:00 32.27 kg/m2 [facility] Procedures Procedure Date / Time Performing Clinician Source Performed POCT GLUCOSE (AUTOMATED) 2020-12-17 15:42:00 Favio Harrisonal G [facility] BASIC METABOLIC PANEL 2020-12-17 10:45:00 Paul Bean [facility] (NA, K, CL, CO2, GLUCOSE, [place] Medica l Branch BUN, CREATININE, CA) CBC WITH DIFF 2020-12-17 10:45:00 Paul Bean [facility] POCT GLUCOSE (AUTOMATED) 2020-12-17 02:36:00 Harrison [facility] Uni [facility] [place] [facility] XR TIBIA FIBULA 2 VW LEFT 2020-12-16 23:38:00 [facility] POCT GLUCOSE (AUTOMATED) 2020-12-16 23:20:00 Harrison, [facility]al [facility] PO[facility] GLUCOSE (AUTOMATED) 2020-12-16 20:10:00 Harrison, Premal [facility] PO[facility] GLUCOSE (AUTOMATED) 2020-12-16 14:43:00 [facility] BASIC METABOLIC PANEL 2020-12-16 13:51:00 Paul Bean [facility] (NA, K, CL, CO2, GLUCOSE, [place] [facility] BUN, CREATININE, CA) CBC WITH DIFF 2020-12-16 13:51:00 Paul Bean [facility] POCT GLUCOSE (AUTOMATED) 2020-12-16 04:00:00 Harrison, Premal G Uni versity of [facility] POCT GLUCOSE (AUTOMATED) 2020-12-16 00:14:00 Harrison, Premal G Uni versity [facility] CT CHEST PULMONARY 2020-12-15 22:29:38 Paul Bean [facility] ANGIOGRAM [facility] POCT GLUCOSE (AUTOMATED) 2020-12-15 19:26:00 Harrison, Premal G [facility] POCT GLUCOSE (AUTOMATED) 2020-12-15 15:13:00 Krupa, Premal G Uni [facility] [place] [facility] HB ECG ROUTINE & RHYTHM 2020-12-15 14:25:27 Cailin Romo [facility] MAGNESIUM 2020-12-15 12:01:00 Paul Bean Sivakumar [facility] BASIC METABOLIC PANEL 2020-12-15 12:01:00 Paul Bean [facility] (NA, K, CL, CO2, GLUCOSE, [place] [facility] BUN, CREATININE, CA) CBC WITH DIFF 2020-12-15 12:01:00 Paul Bean [facility] POCT GLUCOSE (AUTOMATED) 2020-12-15 03:57:00 Harrison, Premal G Uni versity of [facility] POCT GLUCOSE (AUTOMATED) 2020-12-14 23:31:00 Harrison, Premal G Uni versity of [facility] POCT GLUCOSE (AUTOMATED) 2020-12-14 19:08:00 Harrison, Premal G Uni versity of [facility] POCT GLUCOSE (AUTOMATED) 2020-12-14 15:11:00 Harrison, Premal G Uni versity of [facility] POCT GLUCOSE (AUTOMATED) 2020-12-14 02:36:00 Harrison, Premal G Uni versity of [facility] POCT GLUCOSE (AUTOMATED) 2020-12-13 23:32:00 Harrison, Premal G Uni versity of [facility] POCT GLUCOSE (AUTOMATED) 2020-12-13 18:08:00 Harrison, Premal G Uni versity of [facility] BASIC METABOLIC PANEL 2020-12-13 15:39:00 Paul Bean [facility] (NA, K, CL, CO2, GLUCOSE, [place] [facility] BUN, CREATININE, CA) CBC WITH DIFF 2020-12-13 15:39:00 Paul Bean [facility] POCT GLUCOSE (AUTOMATED) 2020-12-13 14:06:00 Harrison, Premal G Uni versity of [facility] POCT GLUCOSE (AUTOMATED) 2020-12-13 03:07:00 Harrison, Premal G Uni versity of [facility] POCT GLUCOSE (AUTOMATED) 2020-12-12 23:52:00 Harrison, Premal G Uni versity of [facility] POCT GLUCOSE (AUTOMATED) 2020-12-12 20:28:00 Harrison, Premal G Uni versity of [facility] POCT GLUCOSE (AUTOMATED) 2020-12-12 19:14:00 Harrison, Premal G Uni versity of [facility] POCT GLUCOSE (AUTOMATED) 2020-12-12 14:33:00 Harrison, Premal G Uni versity of [facility] MAGNESIUM 2020-12-12 08:58:00 Paul Bean [facility] BASIC METABOLIC PANEL 2020-12-12 08:58:00 Paul Bean [facility] (NA, K, CL, CO2, GLUCOSE, [facility] BUN, CREATININE, CA) CBC WITH DIFF 2020-12-12 08:58:00 Paul Bean [facility] US ABDOMEN LIMITED 2020-12-12 06:32:26 Paul Bean [facility] POCT GLUCOSE (AUTOMATED) 2020-12-12 03:40:00 Harrison, Premal G Uni versity of [facility] POCT GLUCOSE (AUTOMATED) 2020-12-12 00:06:00 Harrison, Premal G Uni versity of [facility] XR HIPS 3 VW LEFT 2020-12-11 20:20:00 Paul Bean Sivakumar [facility] HB ECG ROUTINE & RHYTHM 2020-12-11 20:04:06 Demetrius [facility] STRIP [facility] VITAMIN B6, PLASMA 2020-12-11 19:17:00 [facility] POCT GLUCOSE (AUTOMATED) 2020-12-11 19:06:00 Vika Harrison [facility] CREATINE KINASE 2020-12-11 18:22:00 Parvez [facility] VITAMIN B12, LEVEL 2020-12-11 18:22:00 Vikas [facility] FOLATE 2020-12-11 18:22:00 [facility] THYROID STIMULATING 2020-12-11 18:22:00 Demetrius [facility] HORMONE [facility] PROCALCITONIN 2020-12-11 18:22:00 Vikas [facility] VITAMIN B1 (THIAMINE), 2020-12-11 18:22:00 [facility] WO CONTRAST 2020-12-11 14:07:35 Sweetie Stout [facility] URINALYSIS 2020-12-11 13:44:00 Singer [facility] URINE CULTURE 2020-12-11 13:44:00 Singer [facility] COVID-19 (ID NOW RAPID 2020-12-11 12:31:00 Paco Lacey [facility] TESTING) Medical Branch LAB ONLY COVID 2020-12-11 12:31:00 Singer [facility] INTERPRETATION [facility] XR CHEST 1 VW 2020-12-11 12:07:24 Singer [facility] BLOOD CULTURE SCREEN 2020-12-11 12:02:00 Paco Lacey [facility] MAGNESIUM 2020-12-11 12:02:00 Vikas [facility] FERRITIN SERUM 2020-12-11 12:02:00 Paul Bean [facility] Kaley [facility] COMP. METABOLIC PANEL 2020-12-11 12:02:00 Singer [facility] ([id number]) [facility] CBC WITH DIFF 2020-12-11 12:02:00 Singer [facility] LACTIC ACID WHOLE BLOOD 2020-12-11 12:02:00 Singer Paco [facility] BLOOD CULTURE SCREEN 2020-12-11 11:42:00 Singer Paco [facility] EMERGENCY SERVICES 2020-12-11 06:01:00 Doctor Unassigned, [facility] AGREEMENTS AND [place] [facility] [place] AUTHORIZATIONS HOSPITAL ADMISSION 2020-12-11 06:01:00 Doctor Unaowen, [facility] Name Medical [place] HOME HEALTH - OTHER 2020-11-11 06:01:00 Doctor Tabitha [facility] Name Medical [place] HOME HEALTH - OTHER 2020-10-30 06:01:00 Doctor Unaowen [facility] Name Medical [place] EXTERNAL PROVIDER RECORDS 2020-09-01 06:01:00 Doctor Tabitha, [facility] Name [facility] POCT GLUCOSE (AUTOMATED) 2020-08-23 18:09:00 Kelly [facility] POCT GLUCOSE (AUTOMATED) 2020-08-23 14:14:00 Kelly [place] [facility] MAGNESIUM 2020-08-23 11:18:00 Bergoo [facility] BASIC METABOLIC PANEL 2020-08-23 11:18:00 Bergoo [facility] (NA, K, CL, CO2, GLUCOSE, Medica l Branch BUN, CREATININE, CA) CBC WITH DIFF 2020-08-23 11:18:00 Bergoo [facility] POCT GLUCOSE (AUTOMATED) 2020-08-23 10:21:00 Kelly [place] [facility] POCT GLUCOSE (AUTOMATED) 2020-08-23 05:55:00 Kelly [place] [facility] POCT GLUCOSE (AUTOMATED) 2020-08-23 03:00:00 Stefania [facility] PO[facility]SE (AUTOMATED) 2020-08-22 23:38:00 Bety Washingtonmarie Elias versity [facility] POCT GLUCOSE (AUTOMATED) 2020-08-22 19:04:00 Bety [place] [facility] POCT GLUCOSE (AUTOMATED) 2020-08-22 13:49:00 Kelly [place] Jada versity [facility] MAGNESIUM 2020-08-22 10:10:00 [facility] 2020-08-22 10:10:00 Aguila Melchor [facility] ([id number]) (ALB,T.PRO,BILI Medical Branch T,BU/BC,ALT,AST,ALK PHOS) BASIC METABOLIC PANEL 2020-08-22 10:10:00 [facility] (NA, K, CL, CO2, GLUCOSE, Medica l Branch BUN, CREATININE, CA) LIPID PANEL ([id number])(TOTAL 2020-08-22 10:10:00 Bergoo, [facility] CHOLESTEROL, Medical [place] TRIGLYCERIDES, HDL) CBC WITH DIFF 2020-08-22 10:10:00 [facility] POCT GLUCOSE (AUTOMATED) 2020-08-22 10:10:00 Bety Washingtonmarie Elias [facility] POCT GLUCOSE (AUTOMATED) 2020-08-22 07:13:00 Kelly [place] Jada versity [facility] POCT GLUCOSE (AUTOMATED) 2020-08-22 02:24:00 Bety Washingtonmarie Elias versity [facility] POCT GLUCOSE (AUTOMATED) 2020-08-21 23:40:00 Kelly [place] Jada versity of [facility] POCT GLUCOSE (AUTOMATED) 2020-08-21 18:10:00 Kelly [place] Jada versity [facility] POCT GLUCOSE (AUTOMATED) 2020-08-21 13:39:00 Kelly [place] Jada versity [facility] ETHANOL 2020-08-21 12:35:00 [facility] ACTIV[facility] PARTIAL 2020-08-21 12:35:00 Stefania [facility] GALV ONLY - SYPHILIS 2020-08-21 12:35:00 Stefania [facility] IGG/IGM [facility] LACTATE DEHYDROGENASE 2020-08-21 10:09:00 Ramya, [facility] GALV/CLC ONLY - URINE 2020-08-21 10:09:00 Richie [facility] DRUG (IMMUNOASSAY) - 4 ER Medica l Branch PANEL URINALYSIS 2020-08-21 10:09:00 Ramya, [facility] URINE CULTURE 2020-08-21 10:09:00 Ramya, [facility] PROCALCITONIN 2020-08-21 10:09:00 Ramya, [facility] POCT GLUCOSE (AUTOMATED) 2020-08-21 09:41:00 Stefania Kelly [facility] PROTHROMBIN TIME / INR 2020-08-21 08:32:00 Ramya, [facility] ACTIVATED PARTIAL 2020-08-21 08:32:00 Bergoo, [facility] C-REACTIVE PROTEIN 2020-08-21 08:31:00 Ramya, [facility] HEPATIC FUNCTION PANEL 2020-08-21 08:31:00 Bergoo, [facility] ([id number]) (ALB,T.PRO,BILI Medical Branch T,BU/BC,ALT,AST,ALK PHOS) BASIC METABOLIC PANEL 2020-08-21 08:31:00 Bergoo, [facility] (NA, K, CL, CO2, GLUCOSE, [facility] BUN, CREATININE, CA) SEDIMENTATION RATE 2020-08-21 08:31:00 Ramya, [facility] CBC WITH DIFF 2020-08-21 08:31:00 Berg[place], [facility] GLYCOSYLATED HEMOGLOBIN 2020-08-21 08:31:00 Bergoo, [facility] (A1C) Medical Branch HIV 1/2 AG-AB WITH REFLEX 2020-08-21 08:31:00 Kelly [place] [facility] [place] [facility] COVID-19 (ID NOW RAPID 2020-08-21 08:20:00 Haily Bui [facility] TESTING) Medical Branch LAB ONLY COVID 2020-08-21 08:20:00 [place] [facility] [place] INTERPRETATION [facility] Branch Encounters Start End Encounter Admission Attending Care Care Encounter Source Date/Time Date/Time Type Type Clinicians Facility Department ID 2020-08-21 Inpatient [facility] [id number] Univers 01:07:00 KELLY brandenana [facility] 2021-08-22 2021-08-22 Emergency [facility] [id number] Univers 06:21:00 08:02:00 SWEETIE cantu [facility] 2021-08-22 2021-08-22 Emergency [facility] [id number] Univers 06:21:00 08:02:00 Sweetie LOTT [id number] i ty of [place] [id number] [facility] 084 Branch 2021-08-09 2021-08-09 Outpatient JACQUELYN HAINES [facility] [id number] [facility] 10:27:03 10:27:03 ADRIANA lopez of Medicin e 2020-12-28 2020-12-28 Telephone [facility] 1.2.840.114 [id number] 00:00:00 00:00:00 Calvin H PRIMARY [id number] CARE 4.2.7.2.686 PAVILLION [id number] 220 2020-12-28 2020-12-28 Telephone [facility] 1.2.840.114 [id number] Univers 00:00:00 00:00:00 Calvin H PRIMARY [id number] it y of CARE [place].2.[place] [id number] Mo dical 220 Branch 2020-12-19 2020-12-19 Transition Tuan Peters 1.2.840.114 [id number] 00:00:00 00:00:00 of Care Ruchi Braswell [id number] [place] 4.2.7.2.686 [id number] 2020-12-19 2020-12-19 Transition Tuan Peters 1.2.840.114 [id number] Univers 00:00:00 00:00:00 of Care Ruchi [place]well [id number] it [place] of [place] [id number] [facility] 403 Branch 2020-12-11 2020-12-17 [facility] Paco Lacey 1.2.840.1 [id number] 05:11:00 16:00:00 Encounter Vika Harrison Monique [id number] [facility] 4.2.7.2.686 [id number] [facility] 2020-12-11 2020-12-17 [facility] Paco Lacey 1.2.840.[id number] [facility] 05:11:00 16:00:00 Encounter Vika Harrison Monique [id number] ity [facility] 4.2.7.[address] [place] [address] [id number] [facility] 096 Branch 2020-12-11 2020-12-17 Inpatient X [facility] [id number] Univers 05:11:00 16:00:00 pepe [facility] 2020-11-16 2020-11-16 Emergency X [facility] ERT [id number] [facility] 09:31:00 09:31:00 PACO cantu [facility] 2020-11-11 2020-11-11 Orders Doctor CUI 1.2.840.114 [id number] 00:00:00 00:00:00 Only UnassignedMONIQUE 350.1.13.10 [place] [facility] 4.2.7.2.686 [id number] [id number] 2020-11-11 2020-11-11 Orders Doctor CUI 1.2.840.[id number] [facility] 00:00:00 00:00:00 Only Unassigned, MONIQUE 350.1.13.10 ity of [place] [facility] 4.2.7.2.686 Jeff as [id number] [address] 2020-11-07 2020-11-07 [facility] [id number] 00:00:00 00:00:00 Angi Lott 350.1.13.10 [place] 4.2.7.2.686 Professio [id number] [address] 2020-11-07 2020-11-07 Telephone [facility] [id number] [facility] 00:00:00 00:00:00 Angi Lott 350.1.13.10 ity of [place].2.[place] Profess[place] [id number] Mo dic[address] 2020-10-30 2020-10-30 Orders Doctor BASILIA 1.2.840.114 [id number] 00:00:00 00:00:00 Only Unassigned, MONIQUE 350.1.13.10 [place] [facility] 4.2.7.2.686 [id number] [facility] 2020-10-30 2020-10-30 Orders Doctor BASILIA 1.2.840.[id number] [facility] 00:00:00 00:00:00 Only Unassigned, MONIQUE 350.1.13.10 ity of [place] [facility] 4.2.7.2.686 Jeff as [id number] [address] 2020-09-26 2020-09-26 Telephone [facility] 1.2.840.114 [id number] 00:00:00 00:00:00 [facility] 350.1.13.10 CLINICS 4.2.7.2.686 [id number] [facility] 2020-09-26 2020-09-26 Telephone [facility] 1.2.840.[id number] [facility] 00:00:00 00:00:00 [facility] 350.1.13.10 i ty of CLINICS [place].2.[place] [id number] [address] 2020-09-01 2020-09-01 Orders Doctor BASILIA 1.2.840.114 [id number] 00:00:00 00:00:00 Only Unassigned, MONIQUE 350.1.13.10 [place] [facility] 4.2.7.2.686 [id number] 2020-09-01 2020-09-01 Orders Doctor BASILIA 1.2.840.114 [id number] Univers 00:00:00 00:00:00 Only Unassigned, MONIQUE 350.1.13.10 ity of [place] [facility] 4.2.7.2.686 Jeff as [id number] [facility] 009 Branch 2020-08-25 2020-08-25 Transition Tuan Peters 1.2.840.114 [id number] 00:00:00 00:00:00 of Care Ruchi Braswell 350.1.13.10 [place] 4.2.7.2.686 [id number] 2020-08-25 2020-08-25 Transition Tuan Peters 1.2.840.114 [id number] Univers 00:00:00 00:00:00 of Care Ruchi Braswell 350.1.13.10 it y of [place] [id number] [facility] 403 [place] 2020-08-21 2020-08-23 [facility] Ayleen 1.2.840.114 [id number] 01:07:00 18:35:00 Encounter Kelly Monique 350.1.13.10 [facility] 4.2.7.2.686 [id number] [facility] 2020-08-21 2020-08-23 [facility] 1. [id number] [facility] 01:07:00 18:35:00 Encounter Mukul Gallardo 350.1.13. 10 ity of [facility] 4.2.7.2.686 Jeff as [id number] [address] Results Test Description Test Time Test Comments Results Result Comments Source POCT GLUCOSE (AUTOMATED) 2020-12-17 15:43:35 Test Item Value Reference Range Interpretation Comme nts POCT GLU (test code = 2558240508) 129 mg/dL 70-110 H Lab Interpretation (test code = 31281-6) [facility] (NA, K, CL, CO2, GLUCOSE, BUN, CREATININE, CA)2020-12-17 11:45:07 Test Item Value Reference Range Interpretation Comments NA (test code = 137 mmol/L 135-145 0815941331) K (test code = 3.5 mmol/L 3.5-5.0 7181361944) CL (test code = 103 mmol/L 98-108 0076435059) CO2 TOTAL (test code = 26 mmol/L 23-31 5520208825) AGAP (test code = 2-16 1268466525) BUN (test code = 11 mg/dL 7-23 0823550926) GLUCOSE (test code = 175 mg/dL 70-110 H 3067715749) CREATININE (test code = 0.62 mg/dL 0.60-1.25 0076841862) CALCIUM (test code = 9.0 mg/dL 8.6-10.6 5725419957) eGFR Calculation mL/min/1.73m2 (Non-) (test code = 1262431301) eGFR Calculation mL/min/1.73m2 () (test code = 8339223317) JAMES (test code = JAMES) Association of [...] tests). Lab Interpretation Abnormal (test code = 44355-6) [facility] WITH [id number] 11:07:27 Test Item Value Reference Range Interpretation [...] RDW-SD (test code = 45.2 fL 38.5-51.6 95248-2) RDW-CV (test code = 16.9 % 12.1-15.4 H 788-0) PLT (test code = See_Comment H [Automated 777-3) message] The sy stem which generated this result transmitted reference range : 150 - 328 10*3/ ?L. The reference r torito was not used to interpret this result as normal/abnormal . MPV (test code = 8.1 fL 9.8-13.0 L 59974-0) NRBC/100 WBC (test See_Comment [Automat ed code = 3226295401) message] The system which generated this result transmitted reference range : 0.0 - 10.0 /100 WBCs. The refer ence range was not u sed to interpret th is result as normal/abnormal . NRBC x10^3 (test code <0.01 See_Comment [Auto mated = 5475955572) message] The s ystem which generated this result transmitted reference range : 10*3/?L. The reference range was not used to interpret this result as normal/abnormal . GRAN MAT (NEUT) % 72.8 % (test code = 770-8) IMM GRAN % (test code 0.60 % = 8174408602) LYMPH % (test code = 18.4 % 736-9) MONO % (test code = 5.7 % 5905-5) EOS % (test code = 1.8 % 713-8) BASO % (test code = 0.7 % 706-2) GRAN MAT x10^3(ANC) 8.23 10*3/uL 1.99-6.95 H (test code = 6857107081) IMM GRAN x10^3 (test 0.07 10*3/uL 0.00-0.06 H code = 8490884355) LYMPH x10^3 (test code 2.08 10*3/uL 1.09-3.23 = 731-0) MONO x10^3 (test code 0.65 10*3/uL 0.36-1.02 = 742-7) EOS x10^3 (test code = 0.20 10*3/uL 0.06-0.53 711-2) BASO x10^3 (test code 0.08 10*3/uL 0.01-0.09 = 704-7) Lab Interpretation Abnormal (test code = 03585-4) [facility] 06:03:38 Test Item Value Reference Range Interpretation Comments POCT GLU (test code = 9526965939) 75 mg/dL 70-110 Lab Interpretation (test code = Normal 33303-6) [facility], [id number] 00:01:00 Test Item Value Reference Range Interpretation Comments VIT B6 (test code = 13.1 nmol/L 20.0-125.0 L INTERPRE TIVE 28422-2) INFORMATION: Vi tamin B6 (Pyridoxal 5-Phosphate) Pyridoxal 5'-phosphate me asured in a specimen collected follo wing an 8-hour or overnight fast accurately clara keene vitamin B6 nutritional sta tus. Non-fasting spe cimen concentration reflects recent vitamin intake. This test was develo ped and its perform ance characteristics determined by [facility]. I t has not been cleare d or approved by the US Food and Drug Administration. This test was perfor med in a CLIA certifie d laboratory and is intended for cl inical purposes.Perfor med By: [facility] [place] [address] [id number] Director: Namrata Klein MD Lab Interpretation Abnormal (test code = 94998-9) [facility] TIBIA FIBULA 2 VW [id number] 23:57:09 Tricompartmental knee joint osteoarthrosis.XR TIBIA FIBULA [...] No acute fracture or dislocation.IMPRESSIONTricompartmental knee joint osteoarthrosis.[facility] GLUCOSE (AUTOMATED) 2020-12-16 23:27:00 Test Item Value Reference Range Interpretation Comments POCT GLU (test code = 0083682688) 114 mg/dL 70-110 H Lab Interpretation (test code = Abnormal 92941-0) [facility] GLUCOSE (AUTOMATED)2020-12-16 20:12:00 Test Item Value Reference Range Interpretation Comments POCT GLU (test code = 6271920823) 105 mg/dL 70-110 Lab Interpretation (test code = Normal 47562-3) [facility] GLUCOSE (AUTOMATED)2020-12-16 14:44:00 Test Item Value Reference Range Interpretation Comments POCT GLU (test code = 8679812008) 153 mg/dL 70-110 H Lab Interpretation (test code = Abnormal 63439-5) [facility] METABOLIC PANEL (NA, K, CL, CO2, GLUCOSE, BUN, CREATININE, CA)2020-12-16 14:23:00 Test Item Value Reference Range Interpretation Comments NA (test code = 138 mmol/L 135-145 1323602964) K (test code = 3.4 mmol/L 3.5-5.0 L 5888293337) CL (test code = 100 mmol/L 98-108 5160356331) CO2 TOTAL (test code = 31 mmol/L 23-31 8817134023) AGAP (test code = 2-16 3617442431) BUN (test code = 11 mg/dL 7-23 6460753285) GLUCOSE (test code = 162 mg/dL 70-110 H 1993197586) CREATININE (test code = 0.64 mg/dL 0.60-1.25 5085580184) CALCIUM (test code = 8.9 mg/dL 8.6-10.6 1409751980) eGFR Calculation mL/min/1.73m2 (Non-) (test code = 0332940282) eGFR Calculation mL/min/1.73m2 () (test code = 9894433878) JAMES (test code = JAMES) Association of [...] tests). Lab Interpretation Abnormal (test code = 27215-5) [facility] WITH [id number] 14:05:00 Test Item Value Reference Range Interpretation [...] RDW-SD (test code = 45.4 fL 38.5-51.6 27716-7) RDW-CV (test code = 17.0 % 12.1-15.4 H 788-0) PLT (test code = See_Comment H [Automated 777-3) message] The sy stem which generated this result transmitted reference range : 150 - 328 10*3/ ?L. The reference r torito was not used to interpret this result as normal/abnormal . MPV (test code = 8.0 fL 9.8-13.0 L 91413-7) NRBC/100 WBC (test See_Comment [Automat ed code = 1534779925) message] The system which generated this result transmitted reference range : 0.0 - 10.0 /100 WBCs. The refer ence range was not u sed to interpret th is result as normal/abnormal . NRBC x10^3 (test code <0.01 See_Comment [Auto mated = 6565200061) message] The s ystem which generated this result transmitted reference range : 10*3/?L. The reference range was not used to interpret this result as normal/abnormal . GRAN MAT (NEUT) % 70.0 % (test code = 770-8) IMM GRAN % (test code 0.70 % = 7533548363) LYMPH % (test code = 20.5 % 736-9) MONO % (test code = 7.1 % 5905-5) EOS % (test code = 1.0 % 713-8) BASO % (test code = 0.7 % 706-2) GRAN MAT x10^3(ANC) 9.44 10*3/uL 1.99-6.95 H (test code = 4361663090) IMM GRAN x10^3 (test 0.09 10*3/uL 0.00-0.06 H code = 8075329458) LYMPH x10^3 (test code 2.76 10*3/uL 1.09-3.23 = 731-0) MONO x10^3 (test code 0.96 10*3/uL 0.36-1.02 = 742-7) EOS x10^3 (test code = 0.13 10*3/uL 0.06-0.53 711-2) BASO x10^3 (test code 0.10 10*3/uL 0.01-0.09 H = 704-7) Lab Interpretation Abnormal (test code = 27673-6) [facility] Hospital[facility] - Peripheral # [id number] 13:01:00 Test Item Value Reference Range Interpretation Comments Blood Culture-Aerobic No organisms No growth Previo us (test code = 48845-8) isolated prelim inary verified result was Culture In Progress on 12/11/2020 at 100 1 CSTPrevious preliminary verified result was No growth a t 24 hours on 12/12/2020 at 070 1 CSTPrevious preliminary verified result was No growth a t 48 hours on 12/13/2020 at 070 1 CSTPrevious preliminary verified result was No growth a t 72 hours on 12/14/2020 at 070 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 No growth Previous Culture-Anaerobic isolated preliminar y (test code = 14232-8) verifi ed result was Culture In Progress on 12/11/2020 at 100 1 CSTPrevious preliminary verified result was No growth a t 24 hours on 12/12/2020 at 070 1 CSTPrevious preliminary verified result was No growth a t 48 hours on 12/13/2020 at 070 1 CSTPrevious preliminary verified result was No growth a t 72 hours on 12/14/2020 at 070 1 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 Lab Interpretation Normal (test code = 56216-9) [facility] Culture - Peripheral # [id number] 13:01:00 Test Item Value Reference Range Interpretation Comments Blood Culture-Aerobic No organisms No growth Previo us (test code = 36910-7) isolated prelim inary verified result was Culture In Progress on 12/11/2020 at 100 1 CSTPrevious preliminary verified result was No growth a t 24 hours on 12/12/2020 at 070 1 CSTPrevious preliminary verified result was No growth a t 48 hours on 12/13/2020 at 070 1 CSTPrevious preliminary verified result was No growth a t 72 hours on 12/14/2020 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 No growth Previous Culture-Anaerobic isolated preliminar y (test code = 61169-3) verifi ed result was Culture In Progress on 12/11/2020 at 100 1 CSTPrevious preliminary verified result was No growth a t 24 hours on 12/12/2020 at 070 1 CSTPrevious preliminary verified result was No growth a t 48 hours on 12/13/2020 at 070 1 CSTPrevious preliminary verified result was No growth a t 72 hours on 12/14/2020 at 070 1 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 Lab Interpretation Normal (test code = 91986-9) [facility] GLUCOSE (AUTOMATED)2020-12-16 04:01:00 Test Item Value Reference Range Interpretation Comments POCT GLU (test code = 3362181716) 156 mg/dL 70-110 H Lab Interpretation (test code = Abnormal 91767-2) [facility]2020-12-16 00:24:00 Test Item Value Reference Range Interpretation Comments POCT GLU (test code = 0805926672) 115 mg/dL 70-110 H Lab Interpretation (test code = Abnormal 19311-2) [facility] CHEST PULMONARY [id number] 23:34:55No pulmonary emboli. No interval change in [...] stableappearance of intra and extrahepatic biliary ductal dilatation.[facility] GLUCOSE (AUTOMATED)2020-12-15 19:28:00 Test Item Value Reference Range Interpretation Comments POCT GLU (test code = 0020275489) 140 mg/dL 70-110 H Lab Interpretation (test code = Abnormal 10952-5) [facility]2021-[facility]-05 15:26:00 Test Item Value Reference Range Interpretation Comments MAGNESIUM (test code = 7201769474) 2.2 mg/dL 1.7-2.4 Lab Interpretation (test code = Normal 12139-9) [facility] GLUCOSE (AUTOMATED)2020-12-15 15:15:00 Test Item Value Reference Range Interpretation Comments POCT GLU (test code = 2785263193) 181 mg/dL 70-110 H Lab Interpretation (test code = Abnormal 89545-4) [facility] METABOLIC PANEL (NA, K, CL, CO2, GLUCOSE, BUN, CREATININE, CA)2020-12-15 13:07:00 Test Item Value Reference Range Interpretation Comments NA (test code = 136 mmol/L 135-145 7608578339) K (test code = 3.6 mmol/L 3.5-5.0 7005045572) CL (test code = 96 mmol/L 98-108 L 0874681755) CO2 TOTAL (test code = 29 mmol/L 23-31 6869991635) AGAP (test code = 2-16 1708280553) BUN (test code = 12 mg/dL 7-23 5104535986) GLUCOSE (test code = 183 mg/dL 70-110 H 5177408718) CREATININE (test code = 0.70 mg/dL 0.60-1.25 9273426062) CALCIUM (test code = 9.2 mg/dL 8.6-10.6 8240600259) eGFR Calculation mL/min/1.73m2 (Non-) (test code = 3356113451) eGFR Calculation mL/min/1.73m2 () (test code = 1688441769) JAMES (test code = JAMES) Association of [...] tests). Lab Interpretation Abnormal (test code = 92083-4) [facility] WITH [id number] 12:32:00 Test Item Value Reference Range Interpretation Comments WBC (test code = See_Comment H [Automated 5290-2) message] The system which generated this result [...] RDW-SD (test code = 44.4 fL 38.5-51.6 55548-2) RDW-CV (test code = 17.7 % 12.1-15.4 H 788-0) PLT (test code = See_Comment H [Automated 777-3) message] The system which generated this result transmit ronan reference range : 150 - 328 10*3/ ?L. The reference range was not u sed to interpret th is result as normal/abnormal . MPV (test code = 8.1 fL 9.8-13.0 L 09680-7) NRBC/100 WBC (test See_Comment [Automat ed code = 2860472913) message] The system which generated this result transmit ronan reference range : 0.0 - 10.0 /100 WBCs. The reference range was not used to interpret this result as normal/abnormal . NRBC x10^3 (test code <0.01 See_Comment [Auto mated = 9199103695) message] The system which generated this result transmit ronan reference range : 10*3/?L. The reference range was not used to interpret this result as normal/abnormal . GRAN MAT (NEUT) % 74.5 % (test code = 770-8) IMM GRAN % (test code 0.70 % = 5706096450) LYMPH % (test code = 17.4 % 736-9) MONO % (test code = 6.8 % 5905-5) EOS % (test code = 0.2 % 713-8) BASO % (test code = 0.4 % 706-2) GRAN MAT x10^3(ANC) 11.99 10*3/uL 1.99-6.95 H (test code = 3789865857) IMM GRAN x10^3 (test 0.11 10*3/uL 0.00-0.06 H code = 7093331624) LYMPH x10^3 (test code 2.80 10*3/uL 1.09-3.23 = 731-0) MONO x10^3 (test code 1.10 10*3/uL 0.36-1.02 H = 742-7) EOS x10^3 (test code = 0.03 10*3/uL 0.06-0.53 L 711-2) BASO x10^3 (test code 0.06 10*3/uL 0.01-0.09 = 704-7) Lab Interpretation Abnormal (test code = 67512-9) [facility] GLUCOSE (AUTOMATED)2020-12-15 04:16:00 Test Item Value Reference Range Interpretation Comments POCT GLU (test code = 9124025586) 200 mg/dL 70-110 H Lab Interpretation (test code = Abnormal 08392-4) [facility] (THIAMINE), WHOLE [id number] 00:30:00 Test Item Value Reference Range Interpretation Comments Vitamin B1, Whole 136 nmol/L 70-180 INTERPRETI VE INFORMATION: Blood (test code = Vitamin B 1, Whole Blood 05034-1) This assay júnior ures the concentration o [...] its performance characteristics determined by [facility]. I t has not been cleared or approved by the US Food and Drug Administration. This test was performed i n a CLIA certified labor atory and is intended for clinical purposes.Perfor med By: [facility] [address] [place], [place] [address]G aboratory Director: Namrata Klein MD [facility] GLUCOSE (AUTOMATED)2020-12-14 23:35:00 Test Item Value Reference Range Interpretation Comments POCT GLU (test code = 4166137763) 151 mg/dL 70-110 H Lab Interpretation (test code = Abnormal 19668-7) [facility] GLUCOSE (AUTOMATED)2020-12-14 19:19:00 Test Item Value Reference Range Interpretation Comments POCT GLU (test code = 0132461623) 193 mg/dL 70-110 H Lab Interpretation (test code = Abnormal 21966-8) [facility] GLUCOSE (AUTOMATED)2020-12-14 15:22:00 Test Item Value Reference Range Interpretation Comments POCT GLU (test code = 0351991495) 221 mg/dL 70-110 H Lab Interpretation (test code = Abnormal 79357-7) [facility] GLUCOSE (AUTOMATED)2020-12-14 02:37:00 Test Item Value Reference Range Interpretation Comments POCT GLU (test code = 3670943533) 210 mg/dL 70-110 H Lab Interpretation (test code = Abnormal 25059-6) [facility] GLUCOSE (AUTOMATED)2020-12-13 23:33:00 Test Item Value Reference Range Interpretation Comments POCT GLU (test code = 8289904209) 182 mg/dL 70-110 H Lab Interpretation (test code = Abnormal 13462-3) [facility] GLUCOSE (AUTOMATED)2020-12-13 18:09:00 Test Item Value Reference Range Interpretation Comments POCT GLU (test code = 5256684332) 150 mg/dL 70-110 H Lab Interpretation (test code = Abnormal 89223-5) [facility] METABOLIC PANEL (NA, K, CL, CO2, GLUCOSE, BUN, CREATININE, CA)2020-12-13 16:27:00 Test Item Value Reference Range Interpretation Comments NA (test code = 136 mmol/L 135-145 9086871092) K (test code = 3.7 mmol/L 3.5-5.0 7799368786) CL (test code = 96 mmol/L 98-108 L 9606604569) CO2 TOTAL (test code = 29 mmol/L 23-31 5889554494) AGAP (test code = 2-16 0940782541) BUN (test code = 6 mg/dL 7-23 L 0327387184) GLUCOSE (test code = 212 mg/dL 70-110 H 7936211819) CREATININE (test code = 0.61 mg/dL 0.60-1.25 9448033633) CALCIUM (test code = 9.5 mg/dL 8.6-10.6 3193258524) eGFR Calculation mL/min/1.73m2 (Non-) (test code = 8440583801) eGFR Calculation mL/min/1.73m2 () (test code = 9119441264) JAMES (test code = JAMES) Association of [...] tests). Lab Interpretation Abnormal (test code = 22136-1) [facility] WITH [id number] 16:10:00 Test Item Value Reference Range Interpretation Comments WBC (test code = See_Comment H [Automated 7990-2) message] The sy stem which generated this result transmitted reference range : 4.20 - 10.70 10*3/?L. The reference range was not used to interpret this result as normal/abnormal . RBC (test code = See_Comment H [Automated 529-8) message] The sy stem which [...] RDW-SD (test code = 43.3 fL 38.5-51.6 37415-9) RDW-CV (test code = 16.2 % 12.1-15.4 H 788-0) PLT (test code = See_Comment H [Automated 777-3) message] The sy stem which generated this result transmitted reference range : 150 - 328 10*3/ ?L. The reference r torito was not used to interpret this result as normal/abnormal . MPV (test code = 8.2 fL 9.8-13.0 L 40095-3) NRBC/100 WBC (test See_Comment [Automat ed code = 9740547672) message] The system which generated this result transmitted reference range : 0.0 - 10.0 /100 WBCs. The refer ence range was not u sed to interpret th is result as normal/abnormal . NRBC x10^3 (test code <0.01 See_Comment [Auto mated = 7576709650) message] The s ystem which generated this result transmitted reference range : 10*3/?L. The reference range was not used to interpret this result as normal/abnormal . GRAN MAT (NEUT) % 86.2 % (test code = 770-8) IMM GRAN % (test code 0.70 % = 0089845532) LYMPH % (test code = 10.2 % 736-9) MONO % (test code = 2.5 % 5905-5) EOS % (test code = 0.1 % 713-8) BASO % (test code = 0.3 % 706-2) GRAN MAT x10^3(ANC) 9.61 10*3/uL 1.99-6.95 H (test code = 7544501968) IMM GRAN x10^3 (test 0.08 10*3/uL 0.00-0.06 H code = 6642469617) LYMPH x10^3 (test code 1.14 10*3/uL 1.09-3.23 = 731-0) MONO x10^3 (test code 0.28 10*3/uL 0.36-1.02 L = 742-7) EOS x10^3 (test code = <0.03 0.06-0.53 L 711-2) BASO x10^3 (test code 0.03 10*3/uL 0.01-0.09 = 704-7) Lab Interpretation Abnormal (test code = 88722-2) [facility]2020-12-13 14:16:00 Test Item Value Reference Range Interpretation Comments POCT GLU (test code = 1225635699) 236 mg/dL 70-110 H Lab Interpretation (test code = Abnormal 60639-4) [facility] COVID [id number] 04:58:00COVID DMT InterpretationInterpretation/Recommendations: Molecular NAAT Tests for [...] COVID-19 testing the patient has had at [facility], including molecular NAAT testing (more commonly known as PCR testing and Rapid ID Now testing) and antibody testing. It does not take into account any testingthat a patient has had outside of the [facility] medical record. [facility] LABORATORY SERVICESCOVID FrbkmpwCXKN-UzR-2 Rapid ID NOW (no units) ? ? Date ? Value ? 12/11/2020 ? Not Detected ? ? ? 11/16/2020 ? Not Detected ? ? ? 08/21/2020 ? Not Detected ? [facility] 2020-12-13 03:11:00 Test Item Value Reference Range Interpretation Comments POCT GLU (test code = 0560827942) 171 mg/dL 70-110 H Lab Interpretation (test code = Abnormal 13261-9) [facility] GLUCOSE (AUTOMATED)2020-12-13 00:00:00 Test Item Value Reference Range Interpretation Comments POCT GLU (test code = 8882016980) 118 mg/dL 70-110 H Lab Interpretation (test code = Abnormal 85895-0) [facility] GLUCOSE (AUTOMATED)2020-12-12 20:29:00 Test Item Value Reference Range Interpretation Comments POCT GLU (test code = 4629563756) 173 mg/dL 70-110 H Lab Interpretation (test code = Abnormal 14183-7) [facility] HospitalUS [facility]BDOMEN [id number] 19:56:17 1. ?Hepatic steatosis. However, limited evaluation [...] main portal veinwasevaluated with color Doppler imaging. Auto Roller images were obtainedfor the record. COMPARISON: Ultrasound [...] normal where visualized. SPLEEN:No images were obtained. [facility], Radiant Results Inft User - 12/12/2020 1:57 PM CSTEXAM: US ABDOMEN LIMITEDHISTORY: 70 years-old male with RUQ ultrasound to assess for common bileduct dilation .TECHNIQUE: Limited abdominal ultrasound focused on the liver, biliarysystem, pancreas, and spleen was performed. The main portal vein wasevaluated with color Doppler imaging. Auto Roller images wereobtainedfor the record.COMPARISON: Ultrasound abdomen 11/17/2028. [...] this study and agree with the abovereport.[facility]2020-12-12 19:24:00 Test Item Value Reference Range Interpretation Comments POCT GLU (test code = 0782243367) 230 mg/dL 70-110 H Lab Interpretation (test code = Abnormal 93560-6) [facility] CHEST 1 [id number] 15:16:46 Low lung volumes with mild perihilar [...] this study and agree with theabove report.[facility]2020-12-12 14:34:00 Test Item Value Reference Range Interpretation Comments POCT GLU (test code = 6996123639) 225 mg/dL 70-110 H Lab Interpretation (test code = Abnormal 76797-6) [facility] HospitalURINE [id number] 13:28:00 Test Item Value Reference Range Interpretation Comments URINE CULTURE (test < 10,000 CFU/mL mixed code = 630-4) aerobic organisms - suggests endogenous microbial contamination [facility] (NA, K, CL, CO2, GLUCOSE, BUN, CREATININE, CA)2020-12-12 10:05:00 Test Item Value Reference Range Interpretation Comments NA (test code = 136 mmol/L 135-145 6222245587) K (test code = 3.5 mmol/L 3.5-5.0 4826939041) CL (test code = 100 mmol/L 98-108 2779596520) CO2 TOTAL (test code = 31 mmol/L 23-31 3005199573) AGAP (test code = 2-16 4966045527) BUN (test code = 7 mg/dL 7-23 5819250570) GLUCOSE (test code = 259 mg/dL 70-110 H 8285580906) CREATININE (test code = 0.63 mg/dL 0.60-1.25 7935678653) CALCIUM (test code = 8.5 mg/dL 8.6-10.6 L 9155533220) eGFR Calculation mL/min/1.73m2 (Non-) (test code = 0290647061) eGFR Calculation mL/min/1.73m2 () (test code = 3225448750) JAMES (test code = JAMES) Association of [...] tests). Lab Interpretation Abnormal (test code = 75182-7) [facility] HospitalMagnesium [id number] 10:05:00 Test Item Value Reference Range Interpretation Comments MAGNESIUM (test code = 9711055880) 1.9 mg/dL 1.7-2.4 Lab Interpretation (test code = Normal 92495-1) [facility] with [id number] 09:48:00 Test Item Value Reference Range Interpretation Comments WBC (test code = See_Comment [Automated 7447-2) message] The sy stem which generated this result transmitted reference range : 4.20 - 10.70 10*3/?L. The reference range was not used to interpret this result as normal/abnormal . RBC (test code = See_Comment [Automated 578-0) message] The sy stem which generated this [...] RDW-SD (test code = 46.0 fL 38.5-51.6 91514-8) RDW-CV (test code = 16.1 % 12.1-15.4 H 788-0) PLT (test code = See_Comment H [Automated 777-3) message] The sy stem which generated this result transmitted reference range : 150 - 328 10*3/ ?L. The reference r torito was not used to interpret this result as normal/abnormal . MPV (test code = 8.6 fL 9.8-13.0 L 22102-8) NRBC/100 WBC (test See_Comment [Automat ed code = 5546469576) message] The system which generated this result transmitted reference range : 0.0 - 10.0 /100 WBCs. The refer ence range was not u sed to interpret th is result as normal/abnormal . NRBC x10^3 (test code <0.01 See_Comment [Auto mated = 2809900406) message] The s ystem which generated this result transmitted reference range : 10*3/?L. The reference range was not used to interpret this result as normal/abnormal . GRAN MAT (NEUT) % 70.2 % (test code = 770-8) IMM GRAN % (test code 0.30 % = 7729252285) LYMPH % (test code = 18.8 % 736-9) MONO % (test code = 5.0 % 5905-5) EOS % (test code = 5.2 % 713-8) BASO % (test code = 0.5 % 706-2) GRAN MAT x10^3(ANC) 6.05 10*3/uL 1.99-6.95 (test code = 8177576349) IMM GRAN x10^3 (test 0.03 10*3/uL 0.00-0.06 code = 9570192521) LYMPH x10^3 (test code 1.62 10*3/uL 1.09-3.23 = 731-0) MONO x10^3 (test code 0.43 10*3/uL 0.36-1.02 = 742-7) EOS x10^3 (test code = 0.45 10*3/uL 0.06-0.53 711-2) BASO x10^3 (test code 0.04 10*3/uL 0.01-0.09 = 704-7) Lab Interpretation Abnormal (test code = 53809-6) [facility]2020-12-12 03:42:00 Test Item Value Reference Range Interpretation Comments POCT GLU (test code = 196 mg/dL 70-110 H Notifi ed Provider 7741838158) Lab Interpretation (test Abnormal code = 84024-0) [facility] HospitalFOLATE2021-[facility] 02:24:00 Test Item Value Reference Range Interpretation Comments FOLATE SER (test code = 2077854467) 5.8 ng/mL 3.0-20.0 Lab Interpretation (test code = Normal 98162-0) [facility] HospitalVITAMIN B12, [id number] 00:55:00 Test Item Value Reference Range Interpretation Comments VIT B12 (test code = 844 pg/mL 240-930 2372313782) JAMES (test code = JAMES) Biotin has been reported to cause a positive bias, interpret results relative to patient's use of biotin. Lab Interpretation (test Normal code = 19569-5) [facility] GLUCOSE (AUTOMATED)2020-12-12 00:14:00 Test Item Value Reference Range Interpretation Comments POCT GLU (test code = 2034649857) 164 mg/dL 70-110 H Lab Interpretation (test code = Abnormal 74868-0) [facility] HospitalCREATINE [id number] 23:42:00 Test Item Value Reference Range Interpretation Comments CK (test code = 0623240726) <20 33-194 L Lab Interpretation (test code = Abnormal 61261-6) [facility] HospitalTHYROID STIMULATING [id number] 23:17:00 Test Item Value Reference Range Interpretation Comments TSH (test code = See_Comment Biotin has been 4193151749) reported to cau se a negative bias, interpret resul ts relative to johnny bills's use of biotin. [Automated mess age] The system [employer] generated this result transmitted ref erence range: 0.45 - 4 .70 mIU/L. The refe rence range was not u sed to interpret this result as normal/abnor mal. Lab Interpretation (test Normal code = 17708-0) [facility] VW [id number] 21:41:53No appreciable fracture lines. RL: 6200 ICAL [...] No osseous erosions.IMPRESSIONNo appreciable fracture lines.RL: 6200 [facility]PROCALCITONIN2021-03-01 20:00:00 Test Item Value Reference Range Interpretation Comments Procalcitonin (test 0.13 ng/mL <0.07 H code = 0152370790) JAMES (test code = JAMES) INTERPRETATION OF [...] lung abscess/empyema. For further information please refer to:[email or web address] Lab Interpretation Abnormal (test code = 38020-1) [facility]2020-12-11 19:07:00 Test Item Value Reference Range Interpretation Comments POCT GLU (test code = 0140467192) 274 mg/dL 70-110 H Lab Interpretation (test code = Abnormal 15293-1) [facility]2021-[facility]-01 18:31:00 Test Item Value Reference Range Interpretation Comments MAGNESIUM (test code = 0963719640) 1.9 mg/dL 1.7-2.4 Lab Interpretation (test code = Normal 10577-4) [facility] HospitalFERRITIN [id number] 18:31:00 Test Item Value Reference Range Interpretation Comments FERRITIN (test code = 178.0 ng/mL 18.0-464.0 7391135116) JAMES (test code = JAMES) Biotin has been reported to cause a negative bias, interpret results relative to patient's use of biotin. Lab Interpretation (test Normal code = 04766-0) [facility] HEAD WO [id number] 14:36:47 No acute intracranial abnormality. Dilated ventricles [...] this study and agree with the abovereport.[facility]IS[facility] 14:28:00 Test Item Value Reference Range Interpretation Comments APPEARANCE (test code = Clear Clear 3418636684) COLOR (test code = Yellow Yellow 1236133793) PH (test code = 4.8-8.0 8502679114) SP GRAVITY (test code = 1.003-1.030 0949789186) GLU U QUAL (test code = 500 mg/dL Normal A 7617142214) BLOOD (test code = Negative Negative 0557541315) KETONES (test code = 5 mg/dL Negative A 1719312934) PROTEIN (test code = Negative Negative 2887-8) UROBILIN (test code = Normal Normal 1051970033) BILIRUBIN (test code = Negative Negative 4579552026) NITRITE (test code = Negative Negative 5336649062) LEUK RYAN (test code = Negative Negative 0188101977) RBC/HPF (test code = See_Comment [Autom ated message] 1349471491) The system Weele[employer] generated this result transmit ronan reference range : 0 - 3 HPF. The refe rence range was not u sed to interpret th is result as normal/abnormal . WBC/HPF (test code = See_Comment [Autom ated message] 4514417720) The system Weele[employer] generated this result transmit ronan reference range : 0 - 5 HPF. The refe rence range was not u sed to interpret th is result as normal/abnormal . BACTERIA (test code = Negative Negative 6933697655) MUCOUS (test code = Slight Negative LPF A 3252373866) SQ EPITH (test code = HPF 3088236101) Lab Interpretation (test Abnormal code = 65201-8) [facility]COVID[facility] (ID NOW RAPID TESTING)2020-12-11 13:10:00 Test Item Value Reference Range Interpretation Comments SARS-CoV-2 Rapid ID NOW Not Detected Not Detected (test code = 76296-7) JAMES (test code = JAMES) ID NOW COVID-19 Assay is an isothermal nucleic acid amplification test intended for the qualitative detection of nucleic acid from SARS-CoV-2 viral RNA in nasopharyngeal (PREP ROOM SUPERVISOR) specimens. It is used under Emergency [...] indicated. Lab Interpretation Normal (test code = 94569-4) [facility]. METABOLIC PANEL (93590)2020-12-11 12:29:00 Test Item Value Reference Range Interpretation Comments NA (test code = 136 mmol/L 135-145 1785361646) K (test code = 3.5 mmol/L 3.5-5.0 5013274709) CL (test code = 95 mmol/L 98-108 L 4670335071) CO2 TOTAL (test code = 35 mmol/L 23-31 H 8602757755) AGAP (test code = 2-16 4563148732) BUN (test code = 9 mg/dL 7-23 5990231881) GLUCOSE (test code = 329 mg/dL 70-110 H 6599815594) CREATININE (test code = 0.72 mg/dL 0.60-1.25 3724591680) TOTAL BILI (test code = 0.6 mg/dL 0.1-1.2 9829295812) CALCIUM (test code = 9.0 mg/dL 8.6-10.6 9410074021) T PROTEIN (test code = 6.8 g/dL 6.3-8.2 2444469294) ALBUMIN (test code = 3.8 g/dL 3.5-5.0 9595781035) ALK PHOS (test code = 288 U/L 34-122 H 3040705180) ALTv (test code = 46 U/L 5-50 1742-6) AST(SGOT) (test code = 38 U/L 13-40 5836356311) eGFR Calculation mL/min/1.73m2 (Non-) (test code = 0776974561) eGFR Calculation mL/min/1.73m2 () (test code = 7670378941) JAMES (test code = JAMES) Association of [...] tests). Lab Interpretation Abnormal (test code = 15969-4) [facility] HospitalLactic Acid Whole [id number] 12:23:00 Test Item Value Reference Range Interpretation Comments LACTIC ACID (test code = 2.09 mmol/L 0.50-2.20 8545676169) Lab Interpretation (test code = Normal 02840-6) [facility] WITH [id number] 12:17:00 Test Item Value Reference Range Interpretation Comments WBC (test code = See_Comment H [Automated 4790-2) message] The sy stem which generated this result transmitted reference range : 4.20 - 10.70 10*3/?L. The reference range was not used to interpret this result as normal/abnormal . RBC (test code = See_Comment [Automated 099-8) message] The sy stem which generated this [...] RDW-SD (test code = 44.9 fL 38.5-51.6 78106-8) RDW-CV (test code = 15.9 % 12.1-15.4 H 788-0) PLT (test code = See_Comment H [Automated 777-3) message] The sy stem which generated this result transmitted reference range : 150 - 328 10*3/ ?L. The reference r torito was not used to interpret this result as normal/abnormal . MPV (test code = 8.3 fL 9.8-13.0 L 88939-3) NRBC/100 WBC (test See_Comment [Automat ed code = 4961151567) message] The system which generated this result transmitted reference range : 0.0 - 10.0 /100 WBCs. The refer ence range was not u sed to interpret th is result as normal/abnormal . NRBC x10^3 (test code <0.01 See_Comment [Auto mated = 7627252567) message] The s ystem which generated this result transmitted reference range : 10*3/?L. The reference range was not used to interpret this result as normal/abnormal . GRAN MAT (NEUT) % 77.9 % (test code = 770-8) IMM GRAN % (test code 0.50 % = 0434318840) LYMPH % (test code = 12.2 % 736-9) MONO % (test code = 5.2 % 5905-5) EOS % (test code = 3.7 % 713-8) BASO % (test code = 0.5 % 706-2) GRAN MAT x10^3(ANC) 9.57 10*3/uL 1.99-6.95 H (test code = 0491520338) IMM GRAN x10^3 (test 0.06 10*3/uL 0.00-0.06 code = 4464833844) LYMPH x10^3 (test code 1.50 10*3/uL 1.09-3.23 = 731-0) MONO x10^3 (test code 0.64 10*3/uL 0.36-1.02 = 742-7) EOS x10^3 (test code = 0.46 10*3/uL 0.06-0.53 711-2) BASO x10^3 (test code 0.06 10*3/uL 0.01-0.09 = 704-7) Lab Interpretation Abnormal (test code = 14034-0) [facility] ONLY COVID [id number] 18:43:00COVID DMT InterpretationInterpretation/Recommendations: Molecular NAAT Test Results [...] a nasopharyngeal sample, there is approximately a bga-fl-dbouo chance that the patient was infected and [...] the [facility] medical recordincluding both current and prior COVID-19 related testing results for the following tests offered atour institution:A. Tests for the Identification of SARS-CoV-2 RNA:SARS-CoV-2 PCR assays including [place] Aptima, [place] Fusion, Barrett RealTime, and [employer] Xpert Xpress. SARS-CoV-2 Rapid ID NOW by the ID NOW assay. ? B. Tests for the Identification of SARS-CoV-2 Antibodies: Chemiluminescent immunoassays including Access SARS-CoV-2 IgM (DXI 600), VITROS Gxfs-XKFM-YbR-2 IgG (Vitros 5600 and Vitros 3600), and Barrett SARS-CoV-2 IgG (PATTERNMAKER APPRENTICE METAL I System). These interpretation comments assume that only the above testing was utilized and that the approved acceptable specimen type(s) were used for a given test. These interpretations are autopopulated into [employer] based on computerized algorithms matching an interpretation code number to the patient's set of test results. While a clinical pathologist evaluates the combinations for clinical accuracy, clinical correlation is recommended as it may not take into account very remote prior testing. Furthermore, it does not consider testing a patient may have had outside of the [facility] system. Additionally, it should be noted that the computerized algorithm treats the results for PCR testing and Rapid ID NOW testing (also PCR) synonymously, and thus, refers to both testing methodologies as PCR tests. Given that the sensitivity of [facility]'s Rapid ID NOW testing platform is analogous [...] pathogen panel may be beneficialin this setting. [facility] LABORATORY SERVICESCOVID OjhbycvIMKP-JzN-3 Rapid ID NOW (no units) ? ? Date ? Value ? 08/21/2020 ? Not Detected ? [facility] SERVICESUn[facility]2020-08-23 18:25:00 Test Item Value Reference Range Interpretation Comments POCT GLU (test code = 7787433455) 297 mg/dL 70-110 H Lab Interpretation (test code = Abnormal 81591-9) [facility] GLUCOSE (AUTOMATED)2020-08-23 14:25:00 Test Item Value Reference Range Interpretation Comments POCT GLU (test code = 9705879731) 181 mg/dL 70-110 H Lab Interpretation (test code = Abnormal 38006-8) [facility] Metabolic Panel (NA, K, CL, CO2, GLUCOSE, BUN, CREATININE, CA)2020-08-23 11:45:00 Test Item Value Reference Range Interpretation Comments NA (test code = 132 mmol/L 135-145 L 7654420526) K (test code = 4.0 mmol/L 3.5-5 9804473732) CL (test code = 96 mmol/L 98-108 L 2010642053) CO2 TOTAL (test code = 33 mmol/L 23-31 H 7413815139) AGAP (test code = 2-16 2361220955) BUN (test code = 9 mg/dL 7-23 7411814612) GLUCOSE (test code = 176 mg/dL 70-110 H 8419379416) CREATININE (test code = 0.66 mg/dL 0.6-1.25 2116502702) CALCIUM (test code = 8.5 mg/dL 8.6-10.6 L 0772490145) eGFR Calculation mL/min/1.73m2 (Non-) (test code = 2038394143) eGFR Calculation mL/min/1.73m2 () (test code = 7423318875) JAMES (test code = JAMES) Association of [...] tests). Lab Interpretation Abnormal (test code = 13346-8) [facility] HospitalMagnesium [id number] 11:45:00 Test Item Value Reference Range Interpretation Comments MAGNESIUM (test code = 1049699116) 2.0 mg/dL 1.7-2.4 Lab Interpretation (test code = Normal 12122-2) [facility] with [id number] 11:38:00 Test Item Value Reference Range Interpretation [...] RDW-SD (test code = 41.8 fL 38.5-51.6 84142-3) RDW-CV (test code = 14.3 % 12.1-15.4 788-0) PLT (test code = See_Comment H [Automated 777-3) message] The sy stem which generated this result transmitted reference range : 150 - 328 10*3/ ?L. The reference r torito was not used to interpret this result as normal/abnormal . MPV (test code = 8.0 fL 9.8-13 L 29239-8) NRBC/100 WBC (test See_Comment [Automat ed code = 4671248840) message] The system which generated this result transmitted reference range : 0.0 - 10.0 /100 WBCs. The refer ence range was not u sed to interpret th is result as normal/abnormal . NRBC x10^3 (test code <0.01 See_Comment [Auto mated = 0483903406) message] The s ystem which generated this result transmitted reference range : 10*3/?L. The reference range was not used to interpret this result as normal/abnormal . GRAN MAT (NEUT) % 61.5 % (test code = 770-8) IMM GRAN % (test code 2.00 % = 0829578946) LYMPH % (test code = 25.5 % 736-9) MONO % (test code = 6.3 % 5905-5) EOS % (test code = 3.7 % 713-8) BASO % (test code = 1.0 % 706-2) GRAN MAT x10^3(ANC) 5.29 10*3/uL 1.99-6.95 (test code = 0723864790) IMM GRAN x10^3 (test 0.17 10*3/uL 0-0.06 H code = 8869636893) LYMPH x10^3 (test code 2.19 10*3/uL 1.09-3.23 = 731-0) MONO x10^3 (test code 0.54 10*3/uL 0.36-1.02 = 742-7) EOS x10^3 (test code = 0.32 10*3/uL 0.06-0.53 711-2) BASO x10^3 (test code 0.09 10*3/uL 0.01-0.09 = 704-7) Lab Interpretation Abnormal (test code = 47703-0) [facility] GLUCOSE (AUTOMATED)2020-08-23 10:22:00 Test Item Value Reference Range Interpretation Comments POCT GLU (test code = 6781486499) 164 mg/dL 70-110 H Lab Interpretation (test code = Abnormal 39775-6) [facility] GLUCOSE (AUTOMATED)2020-08-23 05:56:00 Test Item Value Reference Range Interpretation Comments POCT GLU (test code = 5365121850) 242 mg/dL 70-110 H Lab Interpretation (test code = Abnormal 71954-3) [facility] GLUCOSE (AUTOMATED)2020-08-23 03:02:00 Test Item Value Reference Range Interpretation Comments POCT GLU (test code = 3099139671) 210 mg/dL 70-110 H Lab Interpretation (test code = Abnormal 01078-9) [facility] GLUCOSE (AUTOMATED)2020-08-22 23:40:00 Test Item Value Reference Range Interpretation Comments POCT GLU (test code = 6111782881) 267 mg/dL 70-110 H Lab Interpretation (test code = Abnormal 73718-0) [facility] GLUCOSE (AUTOMATED)2020-08-22 19:08:00 Test Item Value Reference Range Interpretation Comments POCT GLU (test code = 1046738234) 191 mg/dL 70-110 H Lab Interpretation (test code = Abnormal 04268-0) [facility] GLUCOSE (AUTOMATED)2020-08-22 13:50:00 Test Item Value Reference Range Interpretation Comments POCT GLU (test code = 7495642325) 174 mg/dL 70-110 H Lab Interpretation (test code = Abnormal 45481-6) [facility]URINE [id number] 12:59:00 Test Item Value Reference Range Interpretation Comments URINE CULTURE (test No aerobic growth (< code = 630-4) 1000 CFU/mL) [facility]CBC with Jrtiiyhennud7402-01-26 11:28:00 Test Item Value Reference Range Interpretation Comments WBC (test code = See_Comment [Automated 6690-2) message] The sy stem which generated this result transmitted reference range : 4.20 - 10.70 10*3/?L. The reference range was not used to interpret this result as normal/abnormal . RBC (test code = See_Comment L [Automated 539-8) message] The sy stem which generated this [...] RDW-SD (test code = 42.5 fL 38.5-51.6 52533-3) RDW-CV (test code = 14.5 % 12.1-15.4 788-0) PLT (test code = See_Comment H [Automated 777-3) message] The sy stem which generated this result transmitted reference range : 150 - 328 10*3/ ?L. The reference r torito was not used to interpret this result as normal/abnormal . MPV (test code = 8.0 fL 9.8-13 L 03078-8) NRBC/100 WBC (test See_Comment [Automat ed code = 8802289959) message] The system which generated this result transmitted reference range : 0.0 - 10.0 /100 WBCs. The refer ence range was not u sed to interpret th is result as normal/abnormal . NRBC x10^3 (test code <0.01 See_Comment [Auto mated = 3152106712) message] The s ystem which generated this result transmitted reference range : 10*3/?L. The reference range was not used to interpret this result as normal/abnormal . GRAN MAT (NEUT) % 69.1 % (test code = 770-8) IMM GRAN % (test code 2.20 % = 4807179327) LYMPH % (test code = 20.9 % 736-9) MONO % (test code = 5.8 % 5905-5) EOS % (test code = 1.0 % 713-8) BASO % (test code = 1.0 % 706-2) GRAN MAT x10^3(ANC) 6.51 10*3/uL 1.99-6.95 (test code = 0442488016) IMM GRAN x10^3 (test 0.21 10*3/uL 0-0.06 H code = 7235650072) LYMPH x10^3 (test code 1.97 10*3/uL 1.09-3.23 = 731-0) MONO x10^3 (test code 0.55 10*3/uL 0.36-1.02 = 742-7) EOS x10^3 (test code = 0.09 10*3/uL 0.06-0.53 711-2) BASO x10^3 (test code 0.09 10*3/uL 0.01-0.09 = 704-7) BASO STIPPLING (test Present A code = 703-9) BANDS (test code = Increased A 7018514100) TOXIC CHANGES (test Present A code = 803-7) Lab Interpretation Abnormal (test code = 32653-2) [facility] Metabolic Panel (NA, K, CL, CO2, GLUCOSE, BUN, CREATININE, CA)2020-08-22 11:12:00 Test Item Value Reference Range Interpretation Comments NA (test code = 135 mmol/L 135-145 5634226659) K (test code = 3.6 mmol/L 3.5-5 0639806184) CL (test code = 99 mmol/L 98-108 3948891515) CO2 TOTAL (test code = 31 mmol/L 23-31 4647311906) AGAP (test code = 2-16 1747126768) BUN (test code = 9 mg/dL 7-23 8209421302) GLUCOSE (test code = 198 mg/dL 70-110 H 9710043319) CREATININE (test code = 0.72 mg/dL 0.6-1.25 8560070697) CALCIUM (test code = 8.3 mg/dL 8.6-10.6 L 1922684833) eGFR Calculation mL/min/1.73m2 (Non-) (test code = 5430280845) eGFR Calculation mL/min/1.73m2 () (test code = 2717870321) JAMES (test code = JAMES) Association of [...] tests). Lab Interpretation Abnormal (test code = 76158-7) [facility] HospitalMagnesium [id number] 11:12:00 Test Item Value Reference Range Interpretation Comments MAGNESIUM (test code = 1174681063) 2.0 mg/dL 1.7-2.4 Lab Interpretation (test code = Normal 41821-3) [facility] HospitalLipid Panel (Total Cholesterol, Triglycerides, HDL) - [id number] 11:12:00 Test Item Value Reference Range Interpretation Comments CHOL (test code = 155 mg/dL 120-200 6099263347) HDL (test code = 42 mg/dL >40 4747826076) HDLC RATIO (test code = See_Comment [Au tomated message] 7033910803) The system [employer] generated this result transmit ronan reference range : <=5.0. The refe rence range was not u sed to interpret th is result as normal/abnormal . TRIG (test code = 186 mg/dL 30-170 H 1150132377) LDL CHOL (test code = 76 mg/dL See_Comment [Auto mated message] 79557-8) The system [employer] generated this result transmit ronan reference range : <=160. The refe rence range was not u sed to interpret th is result as normal/abnormal . VLDL (test code = 37 mg/dL 5-60 1969770109) Lab Interpretation (test Abnormal code = 32675-2) [facility] HospitalHEPATIC FUNCTION PANEL (63331[facility] (ALB,T.PRO,BILI T,BU/BC,ALT,AST,ALK PHOS)2020-08-22 11:12:00 Test Item Value Reference Range Interpretation Comments TOTAL BILI (test code = 3975903569) 0.6 mg/dL 0.1-1.1 BILI UNCON (test code = 2333595929) 0.2 mg/dL 0.1-1.1 BILI CONJ (test code = 4317876014) 0.0 mg/dL 0-0.3 T PROTEIN (test code = 1728193421) 6.0 g/dL 6.3-8.2 L ALBUMIN (test code = 3763576121) 2.8 g/dL 3.5-5 L ALK PHOS (test code = 4624028579) 222 U/L 34-122 H ALTv (test code = 1742-6) 27 U/L 5-50 AST(SGOT) (test code = 1368878939) 30 U/L 13-40 Lab Interpretation (test code = Abnormal 70209-8) [facility] GLUCOSE (AUTOMATED)2020-08-22 10:11:00 Test Item Value Reference Range Interpretation Comments POCT GLU (test code = 6890507476) 196 mg/dL 70-110 H Lab Interpretation (test code = Abnormal 91239-2) [facility] GLUCOSE (AUTOMATED)2020-08-22 07:15:00 Test Item Value Reference Range Interpretation Comments POCT GLU (test code = 1731014116) 183 mg/dL 70-110 H Lab Interpretation (test code = Abnormal 68909-3) [facility] GLUCOSE (AUTOMATED)2020-08-22 02:30:00 Test Item Value Reference Range Interpretation Comments POCT GLU (test code = 5457756504) 295 mg/dL 70-110 H Lab Interpretation (test code = Abnormal 89464-3) [facility] GLUCOSE (AUTOMATED)2020-08-21 23:46:00 Test Item Value Reference Range Interpretation Comments POCT GLU (test code = 5270610282) 258 mg/dL 70-110 H Lab Interpretation (test code = Abnormal 72001-5) [facility] HospitalC-REACTIVE [id number] 18:50:00 Test Item Value Reference Range Interpretation Comments CRP (test code = 9634312748) 15.5 mg/dL <0.8 H Lab Interpretation (test code = Abnormal 49493-2) [facility]2020-08-21 18:21:00 Test Item Value Reference Range Interpretation Comments POCT GLU (test code = 4297344534) 297 mg/dL 70-110 H Lab Interpretation (test code = Abnormal 90903-9) [facility] HospitalETHANOL2020-11-09 16:24:00 Test Item Value Reference Range Interpretation Comments ALCOHOL (test code = <10 mg/dL 6843684706) JAMES (test code = Toxic Greater than or JAMES) equal to 80 mg/dL. NOTE: Whole blood values are approximately 10% to 15% lower than serum and plasma. [facility] HospitalGAL[facility]CLC ONLY - URINE DRUG (IMMUNOASSAY) - 4 ER [id number] 15:36:00 Test Item Value Reference Range Interpretation Comments AMPHET (test code = Negative Negative 9769121602) Cocaine Metabolite (test Negative Negative code = 5330792769) OPIATES (test code = Presumptive Positive Negative A 8249294821) THC (test code = Negative Negative 7693559902) JAMES (test code = JAMES) Urine Drug Cutoff Ranges Amphetamine: ? 1,000 ng/mLCocaine: ? 150 ng/mLOpiates: ? 300 ng/mLCannabinoids: ?50 ng/mL The results are to be used only for medical (i.e., treatment) purposes. Unconfirmed screening results must not be used for non-medical purposes (e.g., employment testing, legal testing). Lab Interpretation (test Abnormal code = 47770-3) [facility] ONLY - SYPHILIS [id number] 15:04:00 Test Item Value Reference Range Interpretation Comments Syphilis IgG/IgM (test Non-reactive Non-reactive code = 58694-0) JAMES (test code = JAMES) Non-reactive - No serologic evidence of T. pallidum infection. Cannot exclude incubating or early syphilis. Submit a second specimen in 2-4 weeks if syphilis is clinically suspected. Equivocal - Further testing to follow. Reactive - Further testing to follow. Lab Interpretation (test Normal code = 04996-4) [facility] HospitalUrinalysis2020-11-09 14:52:00 Test Item Value Reference Range Interpretation Comments APPEARANCE (test code = Clear Clear 5010212008) COLOR (test code = Yellow Yellow 9712171660) PH (test code = 4.8-8.0 1058007313) SP GRAVITY (test code = 1.003-1.030 1156908971) GLU U QUAL (test code = 500 mg/dL Normal A 3147963607) BLOOD (test code = Negative Negative 6838306857) KETONES (test code = 20 mg/dL Negative A 5349813689) PROTEIN (test code = Negative Negative 2887-8) UROBILIN (test code = Normal Normal 9050172607) BILIRUBIN (test code = Negative Negative 2967115403) NITRITE (test code = Negative Negative 5069670211) LEUK RYAN (test code = Negative Negative 1550486957) RBC/HPF (test code = <1 See_Comment [Autom ated message] 6058950347) The system [employer] generated this result transmit ronan reference range : 0 - 3 HPF. The refe rence range was not u sed to interpret th is result as normal/abnormal . WBC/HPF (test code = See_Comment [Autom ated message] 3712988625) The system [employer] generated this result transmit ronan reference range : 0 - 5 HPF. The refe rence range was not u sed to interpret th is result as normal/abnormal . BACTERIA (test code = Negative Negative 8062532693) MUCOUS (test code = Slight Negative LPF A 4662551335) Lab Interpretation (test Abnormal code = 20347-5) [facility] HospitalACTIVATED PARTIAL THRMPLAS [id number] 13:45:00 Test Item Value Reference Range Interpretation Comments APTT Patient (test code = See_Comment [ Automated message] 3173-2) The system [employer] generated this result transmitted ref erence range: 26 - 36 Seconds. The re ference range was not u sed to interpret this result as normal/abnor mal. Lab Interpretation (test Normal code = 83409-8) [facility]PO[facility]2020-08-21 13:45:00 Test Item Value Reference Range Interpretation Comments POCT GLU (test code = 6290058917) 246 mg/dL 70-110 H Lab Interpretation (test code = Abnormal 90366-6) [facility] HospitalHIV 1/2 AG-AB WITH [id number] 12:32:00 Test Item Value Reference Range Interpretation Comments HIV Negative Negative Semi-quantitative (test code = 30359-4) JAMES (test code = Non-reactive for HIV-1 JAMES) antigen and HIV-1/HIV-2 antibodies. ?No laboratory evidence of HIV infection. ?Repeat in 2-4 weeks if acute HIV infection is suspected. [facility] HospitalCBC WITH [id number] 12:18:00 Test Item Value Reference Range Interpretation [...] RDW-SD (test code = 44.4 fL 38.5-51.6 45518-2) RDW-CV (test code = 14.5 % 12.1-15.4 788-0) PLT (test code = See_Comment H [Automated 777-3) message] The sy stem which generated this result transmitted reference range : 150 - 328 10*3/ ?L. The reference r torito was not used to interpret this result as normal/abnormal . MPV (test code = 8.5 fL 9.8-13 L 73097-9) NRBC/100 WBC (test See_Comment [Automat ed code = 0681756156) message] The system which generated this result transmitted reference range : 0.0 - 10.0 /100 WBCs. The refer ence range was not u sed to interpret th is result as normal/abnormal . NRBC x10^3 (test code <0.01 See_Comment [Auto mated = [id number]) message] The s ystem which generated this result transmitted reference range : 10*3/?L. The reference range was not used to interpret this result as normal/abnormal . GRAN MAT (NEUT) % 90.4 % (test code = 770-8) IMM GRAN % (test code 1.30 % = 6886417394) LYMPH % (test code = 7.1 % 736-9) MONO % (test code = 0.5 % 5905-5) EOS % (test code = 0.1 % 713-8) BASO % (test code = 0.6 % 706-2) GRAN MAT x10^3(ANC) 7.74 10*3/uL 1.99-6.95 H (test code = 6844965998) IMM GRAN x10^3 (test 0.11 10*3/uL 0-0.06 H code = 9417206187) LYMPH x10^3 (test code 0.61 10*3/uL 1.09-3.23 L = 731-0) MONO x10^3 (test code 0.04 10*3/uL 0.36-1.02 L = 742-7) EOS x10^3 (test code = <0.03 0.06-0.53 L 711-2) BASO x10^3 (test code 0.05 10*3/uL 0.01-0.09 = 704-7) POLYCHROMASIA (test 2+ See_Comment [Automa ronan code = 57099-7) message] The system which generated this result transmitted reference range : 2+. The referen ce range was not u sed to interpret th is result as normal/abnormal . BANDS (test code = Increased A 4940144296) Lab Interpretation Abnormal (test code = 60685-4) [facility] 11:48:00 Test Item Value Reference Range Interpretation Comments Procalcitonin (test 0.36 ng/mL <0.07 H code = 3089977920) JAMES (test code = JAMES) INTERPRETATION OF [...] lung abscess/empyema. For further information please refer to:[email or web address] Lab Interpretation Abnormal (test code = 31994-3) [facility] HospitalLATNATE [id number] 10:53:00 Test Item Value Reference Range Interpretation Comments LDH (test code = 8503699294) 351 U/L 300-600 Lab Interpretation (test code = Normal 12638-8) [facility] HospitalSEDIMENTATION [id number] 10:07:00 Test Item Value Reference Range Interpretation Comments ESR (test code = See_Comment H [Automated message] 6300974354) The system [employer] generated this result transmitted ref erence range: 0 - 10 m m/HR. The reference r torito was not used to interpret this result as normal/abnor mal. Lab Interpretation (test Abnormal code = 18266-9) [facility] (AUT[facility]ATED)2020-08-21 09:45:00 Test Item Value Reference Range Interpretation Comments POCT GLU (test code = 8018776528) 287 mg/dL 70-110 H Lab Interpretation (test code = Abnormal 02762-0) [facility] HospitalGlycosylated Hemoglobin (A1C)2020-08-21 09:29:00 Test Item Value Reference Range Interpretation Comments HGB A1C (test code = 4548-4) 9.8 % 4-6 H Lab Interpretation (test code = Abnormal 76194-2) [facility]COVID[facility] (ID NOW RAPID TESTING)2020-08-21 09:13:00 Test Item Value Reference Range Interpretation Comments SARS-CoV-2 Rapid ID NOW Not Detected Not Detected (test code = 33147-8) JAMES (test code = JAMES) ID NOW COVID-19 Assay is an isothermal nucleic acid amplification test intended for the qualitative detection of nucleic acid from SARS-CoV-2 viral RNA in nasopharyngeal (PREP ROOM SUPERVISOR) specimens. It is used under Emergency [...] indicated. Lab Interpretation Normal (test code = 70425-6) [facility] HospitalProthrombin Time / [id number] 08:59:00 Test Item Value Reference Range Interpretation Comments PROTIME PATIENT (test See_Comment H [Auto mated message] code = 5964-2) The system Immediately generated this result transmitted ref erence range: 10.1 - 1 2.6 Seconds. The reference range was not used to int erpret this result as normal/abnormal . INR (test code = 6301-6) Nor mal INR <1.1; Warfarin Therap eutic range 2.0 to 3. 0 or 2.5 to 3.5, dep ending upon the indica tions. Lab Interpretation (test Abnormal code = 74842-1) [facility] HospitalaPTT2020-11-09 08:59:00 Test Item Value Reference Range Interpretation Comments APTT Patient (test code = See_Comment [ Automated message] 3173-2) The system [employer] generated this result transmitted ref erence range: 26 - 36 Seconds. The re ference range was not u sed to interpret this result as normal/abnor mal. Lab Interpretation (test Normal code = 09079-6) [facility] HospitalBASI METABOLIC PANEL (NA, K, CL, CO2, GLUCOSE, BUN, CREATININE, CA)2020-08-21 08:52:00 Test Item Value Reference Range Interpretation Comments NA (test code = 136 mmol/L 135-145 0630767183) K (test code = 4.3 mmol/L 3.5-5 2697305119) CL (test code = 104 mmol/L 98-108 7277763775) CO2 TOTAL (test code = 24 mmol/L 23-31 5570777338) AGAP (test code = 2-16 0760348355) BUN (test code = 8 mg/dL 7-23 2923611527) GLUCOSE (test code = 308 mg/dL 70-110 H 7308612997) CREATININE (test code = 0.72 mg/dL 0.6-1.25 7200535419) CALCIUM (test code = 7.8 mg/dL 8.6-10.6 L 9191104805) eGFR Calculation mL/min/1.73m2 (Non-) (test code = 8709126682) eGFR Calculation mL/min/1.73m2 () (test code = 6221893745) JAMES (test code = JAMES) Association of [...] tests). Lab Interpretation Abnormal (test code = 51185-4) [facility] HospitalHEPATIC FUNCTION PANEL (68839) (ALB,T.PRO,BILI T,BU/BC,ALT,AST,ALK PHOS)2020-08-21 08:52:00 Test Item Value Reference Range Interpretation Comments TOTAL BILI (test code = 5173853299) 0.8 mg/dL 0.1-1.1 BILI UNCON (test code = 0036753451) 0.3 mg/dL 0.1-1.1 BILI CONJ (test code = 8611182899) 0.0 mg/dL 0-0.3 T PROTEIN (test code = 2319217621) 5.7 g/dL 6.3-8.2 L ALBUMIN (test code = 3604558395) 2.7 g/dL 3.5-5 L ALK PHOS (test code = 3453388095) 245 U/L 34-122 H ALTv (test code = 1742-6) 37 U/L 5-50 AST(SGOT) (test code = 8211331740) 43 U/L 13-40 H Lab Interpretation (test code = Abnormal 46630-8) [facility]
[2022-10-13] MEDS ORDERED: KETOROLAC 30 MG/ML INJ ONE (12:24)
--- NOTE | 2022-10-13 12:40 | EDPHYS ---
Physician Documentation [facility] Name: Kiel Ngo Age: 71 yrs Sex: Male : 1950 Arrival Date: 10/13/2022 Time: 11:44 Bed 10 Private MD: ED Physician Michael Bosch HPI: 10/13 12:37 This 71 yrs old Male presents to ER via EMS with complaints of Groin Pain. rn 12:37 Pt with chronic pain, states unable to get in with his pain management doctor lately, rn takes oral Dilaudid but ran out. Comes here for pain shots from time to time. No new symptoms, no new injury, no fever. Reports pain identical to what is has been before. . Onset: The symptoms/episode began/occurred at an unknown time. Severity of symptoms: At their worst the symptoms were moderate in the emergency department the symptoms are unchanged. The patient has experienced similar episodes in the past, chronically. The patient has been recently seen at the [facility] Emergency Department. Historical: - Allergies: 11:51 Demerol; ss 11:51 metformin; ss 11:51 Morphine; ss - PMHx: 11:51 Atrial fibrillation; chronic back pain; Chronic right leg pain; neuropathy; ss - PSHx: 11:51 back sx; R. Ankle SX; PANCREAS SX; ss - Immunization history:: Adult Immunizations up to date, Client reports receiving the 2nd dose of the Covid vaccine, Last tetanus immunization: up to date. - Social history:: Smoking status: Patient denies any tobacco usage or history of. - Family history:: not pertinent. - Hospitalizations: : No recent hospitalization is reported. - : The history from the nurse's notes was reviewed. ROS: 12:37 Constitutional: Negative for fever, chills, and weight loss, Eyes: Negative for injury, rn pain, redness, and discharge, Cardiovascular: Negative for chest pain, palpitations, and edema, Respiratory: Negative for shortness of breath, cough, wheezing, and pleuritic chest pain, Abdomen/GI: Negative for abdominal pain, nausea, vomiting, diarrhea, and constipation, Back: Negative for injury and pain, : Negative for injury, bleeding, discharge, and swelling, MS/Extremity: Negative for injury and deformity, Skin: Negative for injury, rash, and discoloration, Neuro: Negative for headache, weakness, numbness, tingling, and seizure. Exam: 12:37 Constitutional: This is a well developed, well nourished patient who is awake, alert, rn and in no acute distress. Head/Face: Normocephalic, atraumatic. Cardiovascular: Regular rate and rhythm. No pulse deficits. Respiratory: No increased work of breathing, no retractions or nasal flaring. Abdomen/GI: Soft, non-tender Male : Normal genitalia with no discharge or lesions. Skin: Warm, dry with normal turgor. Normal color with no rashes, no lesions, and no evidence of cellulitis. Vital Signs: 13:15 BP 112 / 52; Pulse 70; Resp 18; Temp 97.4; Pulse Ox 99% ; kb3 MDM: 11:46 Patient medically screened. rn 12:37 Differential Diagnosis chronic pain syndrome, hernia, cellulitis. Data reviewed: vital rn signs, nurses notes, old medical records, and as a result, I will discharge patient. Counseling: I had a detailed discussion with the patient and/or guardian regarding: the historical points, exam findings, and any diagnostic results supporting the discharge/admit diagnosis, the need for outpatient follow up, to return to the emergency department if symptoms worsen or persist or if there are any questions or concerns that arise at home. Response to treatment: the patient's symptoms have markedly improved after treatment, and as a result, I will discharge patient. Special discussion: I discussed with the patient/guardian in detail that at this point there is no indication for admission to the hospital. It is understood, however, that if the symptoms persist or worsen the patient needs to return immediately for re-evaluation. Administered Medications: 12:28 Drug: Ketorolac 30 mg Route: IM; Site: right vastus lateralis; kb3 12:55 Follow up: Response: No adverse reaction; Pain is decreased kb3 Disposition Summary: 10/13/22 12:39 Discharge Ordered Location: Home rn Problem: chronic rn Symptoms: have improved rn Condition: Stable rn Diagnosis - Chronic pain syndrome rn Followup: rn - With: Private Physician - When: As needed - Reason: Recheck today's complaints, Re-evaluation by your physician Discharge Instructions: - Discharge Summary Sheet rn - Chronic Pain, Adult rn - Pain Medicine Instructions rn Forms: - Medication Reconciliation Form rn - Thank You Letter 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 rn kb3 12:50 12:37 The history from the nurse's notes was reviewed. rn kb3
--- NOTE | 2022-10-13 12:40 | ER ---
Nurse's Notes [facility] Name: Kiel Ngo Age: 71 yrs Sex: Male : 1950 Arrival Date: 10/13/2022 Time: 11:44 Bed 10 Private MD: Diagnosis: Chronic pain syndrome Presentation: 10/13 11:49 Chief complaint: Patient states: chronic groin pain. Pt has not been seeing his pain ss management doctor because they do not see eye to eye. Coronavirus screen: Client denies travel out of the [place] in the last 14 days. Ebola Screen: Patient denies exposure to infectious person. Patient denies travel to an Ebola-affected area in the 21 days before illness onset. Initial Sepsis Screen: Does the patient meet any 2 criteria? No. Patient's initial sepsis screen is negative. Does the patient have a suspected source of infection? No. Patient's initial sepsis screen is negative. Risk Assessment: Do you want to hurt yourself or someone else? Patient reports no desire to harm self or others. Onset of symptoms is unknown. 11:49 Method Of Arrival: EMS: [facility] ss 11:49 Acuity: JOZEF 4 ss Historical: - Allergies: 11:51 Demerol; ss 11:51 metformin; ss 11:51 Morphine; ss - PMHx: 11:51 Atrial fibrillation; chronic back pain; Chronic right leg pain; neuropathy; ss - PSHx: 11:51 back sx; R. Ankle SX; PANCREAS SX; ss - Immunization history:: Adult Immunizations up to date, Client reports receiving the 2nd dose of the Covid vaccine, Last tetanus immunization: up to date. - Social history:: Smoking status: Patient denies any tobacco usage or history of. - Family history:: not pertinent. - Hospitalizations: : No recent hospitalization is reported. - : The history from the nurse's notes was reviewed. Screenin:00 [facility] ED Fall Risk Assessment (Adult) History of falling in the last 3 months, kb3 including since admission No falls in past 3 months (0 pts) Confusion or Disorientation No (0 pts) Intoxicated or Sedated No (0 pts) Impaired Gait Yes (1 pt) Mobility Assist Device Used No (0 pt) Altered Elimination Yes (1 pt) Score/Fall Risk Level 0 - 2 = Low Risk Oriented to surroundings, Maintained a safe environment, Educated pt \T\ family on fall prevention, incl call for assistance when getting out of bed, Assessed \T\ reinforced patient's understanding of fall precautions, Provided non-skid footwear, Hourly rounding (assess needs \T\ fall precautionary measures) done, Used ambulatory aids as needed (educated on \T\ assisted with), Used gait belt as appropriate. Abuse screen: Denies threats or abuse. Denies injuries from another. Nutritional screening: No deficits noted. Tuberculosis screening: No symptoms or risk factors identified. Assessment: 12:00 General: Appears in no apparent distress. Behavior is calm, cooperative, Pt reports he kb3 has not been able to get to the pain doctor and has been out of his Dilaudid at home. Pt reports right leg pain from groin to foot unchanged from his chronic pain. Denies injury. 12:00 Pain: Complains of pain in right leg Pain does not radiate. Pain currently is 10 out of kb3 10 on a pain scale. Quality of pain is described as aching, sharp, throbbing. 12:55 General: Smells of Pt resting comfortably. Discharge paperwork reviewed and signed. kb3 Awaiting EMS for transport home. 13:15 General: [facility] at bedside to transport pt home. kb3 Vital Signs: 13:15 BP 112 / 52; Pulse 70; Resp 18; Temp 97.4; Pulse Ox 99% ; kb3 ED Course: 11:44 Patient arrived in ED. eb 11:46 Michael Bosch MD is Attending Physician. rn 11:51 Triage completed. ss 11:51 Arm band placed on right wrist. ss 11:54 Angelia Hand, RN is Primary Nurse. kb3 12:00 Patient has correct armband on for positive identification. Bed in low position. Call kb3 light in reach. Side rails up X2. Warm blanket given. 12:00 No provider procedures requiring assistance completed. Patient did not have IV access kb3 during this emergency room visit. 13:06 CHANGED BRIEF .. mm9 Administered Medications: 12:28 Drug: Ketorolac 30 mg Route: IM; Site: right vastus lateralis; kb3 12:55 Follow up: Response: No adverse reaction; Pain is decreased kb3 Medication: 12:00 VIS not applicable for this client. kb3 Outcome: 12:39 Discharge ordered by . rn 13:30 Discharged to home via ambulance. kb3 13:30 Condition: stable 13:30 Discharge instructions given to patient, Instructed on discharge instructions, follow up and referral plans. medication usage, Demonstrated understanding of instructions, follow-up care, medications. 13:30 Patient left the ED. kb3 Signatures: Michael Bosch MD MD rn Smirch, Shelby, RN Shannan Vela Kelly RN RN [id number] Jennifer Suarez mm9 Corrections: (The following items were deleted from the chart) 12:50 12:37 Family history: not pertinent, rn suad 12:50 12:37 Hospitalizations: No recent hospitalization is reported. rn suad 12:50 12:37 The history from the nurse's notes was reviewed. rn [email or web address]
[2022-10-13 13:36] VITALS: BP 112/52; TEMP 97.4; O2SAT 99
== END 2022-10-13 13:30 | disposition home or self-care (01) ==
LOC: ER 11:43
DX: G89.4 Chronic pain syndrome (principal); Z88.5 Allergy status to narcotic agent; Z88.8 Allergy status to other drugs, medicaments and biological substances
CPT/HCPCS: 96372; 99283

== ENCOUNTER 2022-10-14 18:30 | Emergency (ER) | payer OTHER ==
--- OUTSIDE RECORDS SUMMARY | 2022-10-14 18:37 | XMS REPORT | Continuity of Care Document ---
:1950 Author Organization [facility] t Address [address] [place] [address] Care Team Providers Name Role Phone CALVIN [...] [place] Attending Clinician Unavailable Doctor Unassigned, [place] Attending Clinician Unavailable Wilder VILLAREAL, Angi K.HWong Attending Clinician Jl Mccabe MD Attending Clinician Kelly Washington MD Attending Clinician [phone] Mukul Gallardo MD Attending Clinician MUKUL GALLARDO Admitting Clinician Unavailable Harrison MD, Premal G Admitting Clinician KRUPA VIKA G Admitting Clinician Unavailable Nicci VILLAREAL, Mukul Anand Admitting Clinician Payers Payer Name Policy Type Policy Number Effective Date Expiration Date Tony doe MEDICARE PART A [id number] 2007 \\T\\ B 00:00:00 [employer] INDEMNITY [id number] 2016 00:00:00 MEDICARE PART A [id number] 2014 \\T\\ B - MEDICARE 00:00:00 INDEMNITY/TRADITIO [id number] NAL CHOICE - [employer] 00:00:00 Problems Condition [...] ents Source Name Type Date Date Clinician [place] [employer] Active Rash 2019- Univers ty to [...] Quantity Comments Source Exposure to Not sure [place] of SARS-CoV-2 [place] [facility] (event) Branch History of Chews Tobacco University of tobacco use [place] [facility] History SDOH 2020-11-17 2020-11-17 5 University o f Financial 00:00:00 00:00:00 [place] [facility] History SDND Food 2020-11-17 2020-11-17 [...] [facility] edical Branch Education 2020-11-16 2020-11-16 21 [place] of 00:00:00 00:00:00 [facility] Alcohol intake 2020-11-16 2020-11-16 Ex-drinker [facility] 00:00:00 00:00:00 (finding) [facility] Tobacco use and 2020-08-21 2020-08-21 Former user Universi ty of exposure 00:00:00 00:00:00 [facility] Tobacco Comment 2020-08-21 2020-08-21 quit 10 years Univer sity of 00:00:00 00:00:00 ago, started in [place] Med ical 2nd year of Branch college (~40 years) Alcohol Comment 2020-08-21 2020-08-21 Used to have 2-3 Uni versity of 00:00:00 00:00:00 six-packs of [place] [facility]ica l beer daily x 20 Branch years, quit 2004 History [facility] 2020-08-21 2020-08-21 99 University o f Alcohol Frequency 00:00:00 00:00:00 [place] [facility] ed[facility] Branch History [facility] 2020-08-21 2020-08-21 99 [place] o f Alcohol Std 00:00:00 00:00:00 [place] [facility] Drinks Branch History [facility] 2020-08-21 2020-08-21 99 [place] o f Alcohol Binge 00:00:00 00:00:00 [facility] al [place] Sex Assigned [birth year] Universit y of 00:00:00 00:00:00 [facility] Smoking Status Start Date Stop Date Source Never smoker [facility] Medications Ordered Filled Start Stop [...] 0845, Until Discontinu ed, Routine amLODIPine Yes [id number] 10mg Take 1 Univers 10 mg 3-07 tablet by ity of tablet 00:00: mouth [place] 00 daily. Medical Branch clotrimazol Yes [id number] Apply to Univers e 1 % 3-07 face/ears, ity of topical 00:00: armpits, [place] cream 00 pannus and Medical back/any Branch other rash twice a day fluocinonid 0 Yes [id number] Apply to Univers e 0.05 % 3-07 scalp ity of solution 00:00: twice a [place] 00 day Medical Branch triamcinolo Yes [id number] Apply to Univers ne 3-07 back, ity of acetonide 00:00: armpits [place] 0.1 % cream 00 and other Med ical affected Branch areas twice daily, please mix with clotrimazo le hydrOXYzine Yes [id number] 10mg Take 1 Univers 10 mg 3-07 tablet by ity of tablet 00:00: mouth 2 00 (two) Medical times Branch daily. amLODIPine Yes [id number] 10mg Take 1 Univers 10 mg 3-07 tablet by ity of tablet 00:00: mouth [place] 00 daily. Medical Branch clotrimazol Yes [id number] Apply to Univers e 1 % 3-07 face/ears, ity of topical 00:00: armpits, [place] cream 00 pannus and Medical back/any Branch other rash twice a day fluocinonid Yes [id number] Apply to Univers e 0.05 % 3-07 scalp ity of solution 00:00: twice a day Medical Branch triamcinolo Yes [id number] Apply to Univers ne 3-07 back, ity of acetonide 00:00: armpits [place] 0.1 % cream 00 and other Med ical affected Branch areas twice daily, please mix with clotrimazo le hydrOXYzine Yes [id number] 10mg Take 1 Univers 10 mg 3-07 tablet by ity of tablet 00:00: mouth 2 [place] 00 (two) Medical times Branch daily. amLODIPine Yes [id number] 10mg Take 1 Univers 10 mg 3-07 tablet by ity of tablet 00:00: mouth [place] 00 daily. Medical Branch clotrimazol 0 Yes [id number] Apply to Univers e 1 % 3-07 face/ears, ity of topical 00:00: armpits, [place] cream 00 pannus and Medical back/any Branch other rash twice a day fluocinonid 2020-0 Yes [id number] Apply to Univers e 0.05 % 3-07 scalp ity of solution 00:00: twice a day Medical Branch triamcinolo 2020-0 Yes [id number] Apply to Univers ne 3-07 back, ity of acetonide 00:00: armpits [place] 0.1 % cream 00 and other Med ical affected Branch areas twice daily, please mix with clotrimazo le hydrOXYzine Yes [id number] 10mg Take 1 Univers 10 mg 3-07 tablet by ity of tablet 00:00: mouth 2 [place] (two) Medical times Branch daily. amLODIPine Yes [id number] 10mg Take 1 Univers 10 mg 3-07 tablet by ity of tablet 00:00: mouth [place] 00 daily. Medical Branch clotrimazol Yes [id number] Apply to Univers e 1 % 3-07 face/ears, ity of topical 00:00: armpits, [place] cream 00 pannus and Medical back/any Branch other rash twice a day fluocinonid Yes [id number] Apply to Univers e 0.05 % 3-07 scalp ity of solution 00:00: twice a day Medical Branch triamcinolo 0 Yes [id number] Apply to Univers ne 3-07 back, ity of acetonide 00:00: armpits [place] 0.1 % cream 00 and other Med ical affected Branch areas twice daily, please mix with clotrimazo le hydrOXYzine Yes [id number] 10mg Take 1 Univers 10 mg 3- tablet by ity of tablet 00:00: mouth 2 (two) Medical times Branch daily. cephALEXin 2020-2020- No [id number] 500mg Take 1 Univers 500 mg -04 14- capsule by ity of capsule 00:00: 05:59 mouth [place] 00 :00 every 6 Medical (six) Branch hours for 3 days. cephALEXin 2020-0 2020- No [id number] 500mg Take 1 Univers 500 mg 3-04 14- capsule by ity of capsule 00:00: 05:59 mouth [place] 00 :00 every 6 Medical (six) Branch hours for 3 days. hydrOXYzine 2020-2020- No [id number] 10mg Take 1 Univers 10 mg 3- 03-07 tablet by ity of tablet 00:00: 00:00 mouth 2 [place] 00 :00 (two) Medical times [place] daily. morpHINE Yes 4mg 4 mg, Slow Uni vers injection 4 -06 IV Push, ity of mg 22:40: Q6HPRN, [place] 02 Starting Medical 12/16/20 [place] at 1640, Until Discontinu ed, Routine, Pain [...] 00 :00 dose, Sat Medical 12/16/20 at [place] 0515, Routine lactated 2020- No 1000mL at 125 Univ ers ringers IV 12-16 03-06 mL/hr, ity of infusion 01:00: 00:16 1,000 mL, [place] 1,000 mL 00 :00 IV Medical Infusion, [place] ONCE, 1 dose, 12/15/20 at 1900, Routine iohexol 2020- No 100mL 100 mL, Unive rs (OMNIPAQUE 12-15-05 Intravenou it y of 350 22:24: 22:24 s, ONCE, 1 [place] BULK-100 00 :00 dose, Fri Medica l mL) 12/15/20 at [place] injection 1645, 100 mL Routine cephALEXin 2020- [...] NaCl 0.9% 2020- No 500mL at 999 [facility] ers (NS) bolus 12-15-05 mL/hr, 500 it y of infusion 16:00: 15:26 mL, IV [place] 500 mL 00 :00 Piggyback, Medical ONCE, 1 Branch dose, Fri12/15/20 at 1000, STAT HYDROmorpho Yes 4mg 4 mg, [facility] ne 05 Oral, BID, ity of (DILAUDID) 15:30: First dose [place] tablet 4 mg 00 (after Medica l last Branch modificati on) on Fri12/15/20 at 0930, Until Discontinu ed, Routine amLODIPine 2020- No [id number] 10mg Take 1 Univers 10 mg 12-1507 tablet by ity of tablet 00:00: 00:00 mouth [place] 00 :00 daily. Medical Branch HYDROmorpho 2020- No 1mg 1 mg, [facility] ers ne 12-14 03-05 Oral, ity of (DILAUDID) 17:35: 15:18 Q6HPRN, [place] tablet 1 mg 30 :06 Starting Medi [facility] 12/14/20 Branch at 1135, Until Fri12/15/20 at 0918, Routine, Pain (scale 7-10) hydrOXYzine Yes 10mg 10 mg, [facility] ers (ATARAX) 304 Oral, BID, ity o f tablet 10 17:30: First dose [place] mg 00 on [facility] 12/14/20 at Branch 1130, Until Discontinu ed, Routine lisinopriL 0 Yes 5mg 5 mg, Univer s (PRINIVIL,Z -04 Oral, ity of ESTRIL) 17:30: DAILY, [place] tablet 5 mg 00 First dose Me dical on [facility] Branch 12/14/20 at 1130, Until Discontinu ed, Routine triamcinolo 2020- No [id number] Apply to Univers ne 12-14 back, ity of acetonide 00:00: 00:00 armpits [place] 0.1 % cream 00 :00 and other Med ical affected Branch areas twice daily, please mix with clotrimazo le clotrimazol 2020- No [id number] Apply to Univers e 1 % 12-14 face/ears, ity of topical 00:00: 00:00 armpits, [place] cream 00 :00 pannus and Medical back/any Branch other rash twice a day fluocinonid 2020- No [id number] Apply to Univers e 0.05 % 12-14 scalp ity of solution 00:00: 00:00 twice a [place] 00 :00 day Medical Branch hydrOXYzine 2020- No [id number] 10mg Take 1 Univers 10 mg 12-14 [...] injection 4 00 :00 dose, [facility] ical mg 12/12/20 at Branch 2300, Routine traMADoL 2020- No 50mg 50 mg, Univer s (ULTRAM) 12-13 03-03 Oral, ity of tablet 50 03:45: 03:34 ONCE, 1 [place] mg 00 :00 dose, [facility] 12/12/20 at Branch 2145, Routine insulin Yes 15U 15 Units, [facility] rs glargine 12-12 Subcutaneo ity o f (LANTUS 15:00: us, DAILY, [place] U-100) 00 First dose Medical injection on [facility] 15 Units 12/12/20 at 0900, Until Discontinu ed hydrOXYzine 2020- No 10mg 10 mg, Uni vers (ATARAX) 12-12 03-02 Oral, ity of tablet 10 08:15: 07:33 ONCE, 1 [place] mg 00 :00 dose, [facility] 12/12/20 at Branch 0215, Routine mirtazapine Yes 7.5mg 7.5 mg, Un toi (REMERON) 3-02 Oral, QHS, ity of tablet 7.5 03:00: First dose [place] mg 00 on [facility] 12/11/20 at Branch 2100, Until Discontinu ed, [...] 00 Fri12/11/20 Me dical cream at 1315, [place] Until Discontinu ed, Routine hydrocortis 0 Yes [...] ity of 1,000 mg in 19:00: 17:35 [place], [place] NaCl 0.9% 00 :26 Q8H ABX, [...] ed, Routine insulin Yes 5U 5 Units, [facility] lispro 12-11 Subcutaneo ity of (human) 18:00: us, TID [place] (HumaLOG 00 MEALS, Medical U-100) First dose Branch injection 5 on Mon Units 12/11/20 at 1200, Until Discontinu ed Polyethylen Yes 17g 17 g, [facility] rs e Glycol 12-11 Oral, ity of 3350 17:47: [id number], [place] (MIRALAX) 05 Starting Medica l powder [...] 0630, STAT piperacilli No 3.375g 3.375 g, [facility] n-tazobacta 12-11 IV ity of m (ZOSYN) 12:00: 17:48 [place], [place] injection 00 :24 Q6H, First Medi jose c 3.375 g dose on Branch Fri12/11/20 at 0600, Until Discontinu ed, KAHLIL
Re ason for Anti-Infec tive: Empiric Therapy for Suspected Infection< br>Empiric Therapy Site: Skin / Soft tissue
Duration of therapy: 72 hours sennosides- Yes [id number] 1{tbl} Take 1 [facility] docusate 2-09 tablet by ity of sodium 00:00: mouth 2 [place] 8.6-50 mg 00 (two) Medical per tablet times Branch daily. hydrocortis Yes [id number] Apply to [facility] one 2.5 % 11-21 affected ity of cream 00:00: area(s) 2 [place] 00 (two) Medical times Branch daily. blood sugar Yes [id number] Use to [facility] diagnostic 2 check ity of (FREESTYLE 00:00: blood [place] LITE 00 glucose Medical STRIPS) 4-5 times Branch strip daily. Polyethylen Yes [id number] 17g Take 1 Univers e Glycol 2-09 Packet by ity of 3350 17 00:00: mouth [place] gram powder 00 every 24 Medi jose c (twenty-fo Branch ur) hours as needed for Constipati on. sennosides- Yes [id number] 1{tbl} Take 1 Univers docusate 2-09 tablet by ity of sodium 00:00: mouth 2 [place] 8.6-50 mg 00 (two) Medical per tablet times Branch daily. hydrocortis Yes [id number] Apply to Univers one 2.5 % 2-09 affected ity of cream 00:00: area(s) 2 [place] 00 (two) Medical times Branch daily. blood sugar Yes [id number] Use to Univers diagnostic 11-21 check ity of (FREESTYLE 00:00: blood [place] LITE 00 glucose Medical STRIPS) 4-5 times Branch strip daily. Polyethylen Yes [id number] 17g Take 1 Univers e Glycol 2-09 Packet by ity of 3350 17 00:00: mouth [place] gram powder 00 every 24 Medi jose c (twenty-fo Branch ur) hours as needed for Constipati on. sennosides- Yes [id number] 1{tbl} Take 1 Univers docusate 2-09 tablet by ity of sodium 00:00: mouth 2 [place] 8.6-50 mg 00 (two) Medical per tablet times Branch daily. hydrocortis Yes [id number] Apply to Univers one 2.5 % 2-09 affected ity of cream 00:00: area(s) 2 [place] 00 (two) Medical times Branch daily. blood sugar Yes [id number] Use to Univers diagnostic 11-21 check ity of (FREESTYLE 00:00: blood [place] LITE 00 glucose Medical STRIPS) 4-5 times Branch strip daily. Polyethylen 2020-0 Yes [id number] 17g Take 1 Univers e Glycol 2-09 Packet by ity of 3350 17 00:00: mouth [place] gram powder 00 every 24 Medi jose c (twenty-fo Branch ur) hours as needed for Constipati on. sennosides- Yes [id number] 1{tbl} Take 1 Univers docusate 2-09 tablet by ity of sodium 00:00: mouth 2 [place] 8.6-50 mg 00 (two) Medical per tablet times Branch daily. hydrocortis Yes [id number] Apply to [facility] one 2.5 % 11-21 affected ity of cream 00:00: area(s) 2 [place] 00 (two) Medical times Branch daily. blood sugar Yes [id number] Use to [facility] diagnostic 11-21 check ity of (FREESTYLE 00:00: blood [place] LITE 00 glucose Medical STRIPS) 4-5 times Branch strip daily. Polyethylen Yes [id number] 17g Take 1 Univers e Glycol 11-21 Packet by ity of 3350 17 00:00: mouth [place] gram powder 00 every 24 Medi jose c (twenty-fo Branch ur) hours as needed for Constipati on. Insulin 2020- No [id number] 15U inject 15 Univers Glargine 11-21- Units ity of (LANTUS 00:00: 05:59 under the [employer] SOLOSTAR 00 :00 skin every Medic al U-100 morning Branch INSULIN) for 30 100 unit/mL days. (3 mL) injection venlafaxine 2020- No [id number] 150mg Take 1 Univers XR 150 mg 11-21 capsule by ity of 24 hr 00:00: 05:59 mouth 3 [place] capsule 00 :00 (three) Medical times Branch daily for 30 days. Insulin 2020- No [id number] 15U inject 15 Univers Glargine 11-21-12 Units ity of (LANTUS 00:00: 05:59 under the [employer] SOLOSTAR 00 :00 skin every Medic al U-100 morning Branch INSULIN) for 30 100 unit/mL days. (3 mL) injection venlafaxine 2020- No [id number] 150mg Take 1 Univers XR 150 mg 11-21- capsule by ity of 24 hr 00:00: 05:59 mouth 3 [place] capsule 00 :00 (three) Medical times Branch daily for 30 days. triamcinolo 2020- No [id number] Apply to [facility] ne 11-21-04 area(s) 2 ity of acetonide 00:00: 00:00 (two) [place] 0.1 % cream 00 :00 times Medical daily. Branch cephALEXin 2020- No [id number] 1000mg Take 2 Univers 500 mg 11-21 capsules ity of capsule 00:00: 00:00 by mouth 3 [place] 00 :00 (three) Medical times Branch daily. doxycycline 2020- No [id number] 100mg Take 1 Univers hyclate 100 11-21 capsule by i ty of mg capsule 00:00: 00:00 mouth [place] 00 :00 every 12 Medical (twelve) Branch hours. lactobacill 2020- No [id number] 1{tbl} Take 1 Univers us 11-21 tablet by ity of acidophilus 00:00: 00:00 mouth 2 [place] 25 million 00 :00 (two) Medical cell -100 times Branch mg captab daily. bisacodyL 2020- No [id number] 10mg Insert 1 Univers 10 mg 11-21 Suppositor ity of suppository 00:00: 00:00 y into [place] 00 :00 rectum at Medical bedtime as Branch needed for Constipati on. ALPRAZolam 2020- No [id number] .25mg Take 1 Univers (XANAX) 11-21 tablet by ity of 0.25 mg 00:00: 00:00 mouth 2 [place] tablet 00 :00 (two) Medical times Branch daily. hydrOXYzine 2020- No [id number] 20mg Take 2 Univers 10 mg 11-21 [...] Units ity of (NOVOLOG 01:13: under the [facility] s FLEXPEN SC) 36 skin. Medical Branch ALPRAZolam 2019-10 Yes .25mg Take 0.25 U nivers (XANAX) 1-12 mg by ity of 0.25 mg 01:13: mouth 2 [place] tablet 36 (two) Medical times Branch daily. HYDROXYZINE 2019-10 2020- No 25mg Take 25 mg Univers PAMOATE 1-11 11-11 by mouth ity of ORAL 20:04: 00:00 daily. [place] 34 :00 Medical Branch hydrocortis 2019-10 Yes [id number] Apply to Univers one 2.5 % 1-11 affected ity of cream 00:00: area(s) 2 [place] 00 (two) Medical times Branch daily. hydrOXYzine 2019-10 Yes [id number] 20mg Take 2 Univers 10 mg 1-11 tablets by ity of tablet 00:00: mouth [place] 00 every 8 Medical (eight) Branch hours as needed for Itching or Anxiety. Polyethylen 2019-10 Yes [id number] 17g Take 1 Univers e Glycol 1-11 Packet by ity of 3350 17 00:00: mouth [place] gram powder 00 every 24 Medi jose c (twenty-fo Branch ur) hours as needed for Constipati on. hydrocortis 2019-10 Yes [id number] Apply to Univers one 2.5 % 1-11 affected ity of cream 00:00: area(s) 2 [place] 00 (two) Medical times Branch daily. hydrOXYzine 2019- Yes [id number] 20mg Take 2 Univers 10 mg 1-11 tablets by ity of tablet 00:00: mouth [place] 00 every 8 Medical (eight) Branch hours as needed for Itching or Anxiety. Polyethylen 2019- Yes [id number] 17g Take 1 Univers e Glycol 1-11 Packet by ity of 3350 17 00:00: mouth [place] gram powder 00 every 24 Medi jose c (twenty-fo Branch ur) hours as needed for Constipati on. hydrocortis 2019- Yes [id number] Apply to Univers one 2.5 % 1-11 affected ity of cream 00:00: area(s) 2 [place] (two) Medical times Branch daily. hydrOXYzine 2019-10 Yes [id number] 20mg Take 2 Univers 10 mg 1-11 tablets by ity of tablet 00:00: mouth [place] 00 every 8 Medical (eight) Branch hours as needed for Itching or Anxiety. Polyethylen 2019- Yes [id number] 17g Take 1 Univers e Glycol 1-11 Packet by ity of 3350 17 00:00: mouth [place] gram powder 00 every 24 Medi jose c (twenty-fo Branch ur) hours as needed for Constipati on. hydrocortis 2019-10 Yes [id number] Apply to Univers one 2.5 % 1-11 affected ity of cream 00:00: area(s) 2 [place] (two) Medical times Branch daily. hydrOXYzine 2019-10 Yes [id number] 20mg Take 2 Univers 10 mg 1-11 tablets by ity of tablet 00:00: mouth [place] 00 every 8 Medical (eight) Branch hours as needed for Itching or Anxiety. Polyethylen 2019-10 Yes [id number] 17g Take 1 Univers e Glycol 1-11 Packet by ity of 3350 17 00:00: mouth [place] gram powder 00 every 24 Medi jose c (twenty-fo Branch ur) hours as needed for Constipati on. hydrocortis 2019-10 Yes [id number] Apply to Univers one 2.5 % 1-11 affected ity of cream 00:00: area(s) 2 [place] 00 (two) Medical times Branch daily. hydrOXYzine 2019-10 Yes [id number] 20mg Take 2 Univers 10 mg 1-11 tablets by ity of tablet 00:00: mouth [place] 00 every 8 Medical (eight) Branch hours as needed for Itching or Anxiety. Polyethylen 2019- Yes [id number] 17g Take 1 Univers e Glycol 1-11 Packet by ity of 3350 17 00:00: mouth [place] gram powder 00 every 24 Medi jose c (twenty-fo Branch ur) hours as needed for Constipati on. hydrocortis 2019-10 Yes [id number] Apply to Univers one 2.5 % 1-11 affected ity of cream 00:00: area(s) 2 [place] 00 (two) Medical times Branch daily. hydrOXYzine 2019- Yes [id number] 20mg Take 2 Univers 10 mg 1-11 tablets by ity of tablet 00:00: mouth [place] 00 every 8 Medical (eight) Branch hours as needed for Itching or Anxiety. Polyethylen 2019- Yes [id number] 17g Take 1 Univers e Glycol 1-11 Packet by ity of 3350 17 00:00: mouth [place] gram powder 00 every 24 Medi jose c (twenty-fo Branch ur) hours as needed for Constipati on. hydrocortis 2019- Yes [id number] Apply to Univers one 2.5 % 1-11 affected ity of cream 00:00: area(s) 2 [place] 00 (two) Medical times Branch daily. hydrOXYzine 2019- Yes [id number] 20mg Take 2 Univers 10 mg 1-11 tablets by ity of tablet 00:00: mouth [place] 00 every 8 Medical (eight) Branch hours as needed for Itching or Anxiety. Polyethylen 2019- Yes [id number] 17g Take 1 Univers e Glycol 1-11 Packet by ity of 3350 17 00:00: mouth [place] gram powder 00 every 24 Medi jose c (twenty-fo Branch ur) hours as needed for Constipati on. triamcinolo 2019- 2020- No [id number] Apply to Univers ne 10-23 area(s) 2 ity of acetonide 00:00: 05:59 (two) [place] 0.1 % cream 00 :00 times Medical daily for Branch 14 days. triamcinolo 2019- 2020- No [id number] Apply to Univers ne 10-23 area(s) 2 ity of acetonide 00:00: 05:59 (two) [place] 0.1 % cream 00 :00 times Medical daily for Branch 14 days. triamcinolo 2020- 2020- No [id number] Apply to [facility] ne 10-23 area(s) 2 ity of acetonide 00:00: 05:59 (two) [place] 0.1 % cream 00 :00 times Medical daily for Branch 14 days. KCL 2019- 2020- No 40meq 40 mEq, Univers (KLOR-CON 1-10 11-10 Oral, ONCE ity of M20) tablet 16:15: 16:23 NOW, 1 [place] 40 mEq 00 :00 dose, [facility] 08/22/20 Branch at 1015, Routine HYDROmorpho 2019-10 Yes 1mg 1 mg, Unive rs ne 1-10 Oral, ity of (DILAUDID) 15:07: Q6HPRN, [place] tablet 1 mg 53 Starting [facility] 08/22/20 at 0907, Until Discontinu ed, Routine, Pain (scale 7-10) hydrocortis 2019-10 Yes Topical Uni vers one 2.5 % 1-10 (Apply To ity o f cream 02:00: Affected [place] 00 Areas), Medical BID, First Branch dose on [facility] 08/21/20 at 2000, Until Discontinu ed, Routine triamcinolo 2019-10 Yes Topical, Un toi ne 1-10 BID, First ity of acetonide 02:00: dose on [place] (TRIDERM) [facility] Medical 0.1 % cream 08/21/20 at Br anch 2000, Until Discontinu ed, Routine hydrOXYzine 2019-10 Yes 20mg 20 mg, Univ ers (ATARAX) 09 Oral, ity of tablet 20 17:39: Q8HPRN, [place] mg 12 Starting [facility] 08/21/20 at 1139, Until Discontinu ed, Routine, Itching, Anxiety sennosides- 2019-10 Yes 1{tbl} 1 tablet, Univers docusate 10-21 Oral, ity of sodium 15:00: DAILY, [place] (SENOKOT-S) 00 First dose Me dical 8.6-50 mg on [facility] per tablet 08/21/20 at 1 tablet [...] [place] capsule 150 00 on [facility] Medica l mg 08/21/20 at Branch 0800, [...] 59 :43 Starting Medica l mg [facility] 08/21/20 at 0656, Until Fri08/21/20 at 1139, Routine, Itching, Mild Rash, Congestion /Allergies , alternate with hydroxyzin e hydrOXYzine 2019-10- No 10mg 10 mg, Uni vers (ATARAX) 10-21 Oral, ity of tablet 10 10:20: 12:57 Q6HPRN, [place] mg 22 :12 Starting Medical [facility] 08/21/20 at 0420, Until Fri08/21/20 at [...] 1 ity o f 09:30: 09:14 dose, [facility] 00 :00 08/21/20 at [facility] 0330, Branch Routine Polyethylen 2019-10 Yes 17g 17 g, [facility] Glycol 10-21 Oral, ity of 3350 08:29: [id number], [place] (MIRALAX) 09 Starting Medica l powder 17 g [facility] 08/21/20 at 0229, Until Discontinu ed, Routine, Constipati on lanolin 2019-10 Yes Topical, Univer s alcohol-mo- 10-21 PRN, ity of w.pet-ceres 08:26: Starting [place] (EUCERIN) 30 [facility] Medical cream 08/21/20 at Branch 0226, Until [...] 1-3) sotalol 2019-10 2020- No Take by [facility] s (BETAPACE) 10-21 mouth ity of 240 mg 07:43: 00:00 every 12 [place] tablet 30 :00 (twelve) Medical hours. Branch blood sugar Yes Use to [facility] ers diagnostic 4-25 check ity of (FREESTYLE 00:00: blood [place] LITE 00 glucose Medical STRIPS) 4-5 times Branch strip daily. blood sugar Yes Use to [facility] ers diagnostic 4-25 check ity of (FREESTYLE 00:00: blood [place] LITE 00 glucose Medical STRIPS) 4-5 times Branch strip daily. blood sugar Yes Use to [facility] ers diagnostic 4-25 check ity of (FREESTYLE 00:00: blood [place] LITE 00 glucose Medical STRIPS) 4-5 times Branch strip daily. blood sugar Yes Use to [facility] ers diagnostic 4-25 check ity of [...] 2021-08-22 13:00:00 148 mm[Hg] Univer sity of [facility] Diastolic blood 2021-08-22 13:00:00 84 mm[Hg] Unive rsity of [facility] Heart rate 2021-08-22 13:00:00 103 /min [facility] Respiratory rate 2021-08-22 13:00:00 18 /min [facility] Oxygen saturation in 2021-08-22 13:00:00 95 /min University of Arterial blood by [facility] Pulse oximetry [place] Body temperature 2021-08-22 12:22:[address] Systolic blood 2020-12-17 18:35:00 139 mm[Hg] Univer sity of [facility] Diastolic blood 2020-12-17 18:35:00 87 mm[Hg] Unive rsity of [facility] Heart rate 2020-12-17 18:35:00 110 /min [facility] Body temperature 2020-12-17 18:35:[address] [facility] Respiratory rate 2020-12-17 18:35:00 18 /min [facility] Oxygen saturation in 2020-12-17 18:35:00 93 /min University of Arterial blood by [facility] Pulse oximetry Branch Body height 2020-12-12 08:21:00 [facility] Pulse oximetry Branch Body height 2020-12-12 08:21:00 [...] [facility] Pulse oximetry Branch Body weight 2020-08-21 07:20:00 104.962 kg [facility] [place] [facility] BMI 2020-08-21 07:20:00 32.27 kg/m2 [facility] [place] [facility] Systolic blood 2020-08-23 19:27:00 140 mm[Hg] Univer sity of pressure [facility] Diastolic blood 2020-08-23 19:27:00 79 mm[Hg] [facility] of pressure [facility] Heart rate 2020-08-23 19:27:00 99 /min [facility] Body temperature 2020-08-23 19:27:[address] [facility] Respiratory rate 2020-08-23 19:27:00 18 /min [facility] Oxygen saturation in 2020-08-23 19:27:00 93 /min [facility] blood by [facility] Pulse oximetry [place] Body weight 2020-08-21 07:20:00 104.962 kg [facility] BMI 2020-08-21 07:20:00 32.27 kg/m2 [facility] Procedures Procedure Date / Time Performing Clinician Source Performed POCT GLUCOSE (AUTOMATED) 2020-12-17 15:42:00 Favio Harrisonal G Uni [facility] BASIC METABOLIC PANEL 2020-12-17 10:45:00 Paul Bean [facility] (NA, K, CL, CO2, GLUCOSE, K[facility]ica [facility] Branch BUN, CREATININE, CA) CBC WITH DIFF 2020-12-17 10:45:00 Paul Bean [facility] POCT GLUCOSE (AUTOMATED) 2020-12-17 02:36:[address] [facility] Uni [facility] XR TIBIA FIBULA 2 VW LEFT 2020-12-16 23:38:00 [facility] ([facility]OMATED) 2020-12-16 23:20:00 Harrison, [facility]al [facility] PO[facility] GLUCOSE (AUTOMATED) 2020-12-16 20:10:00 Harrison, Premal [facility] POCT GLUCOSE (AUTOMATED) 2020-12-16 14:43:00 [facility] BASIC METABOLIC PANEL 2020-12-16 13:51:00 Paul Bean [facility] (NA, K, CL, CO2, GLUCOSE, [facility] BUN, CREATININE, CA) CBC WITH DIFF 2020-12-16 13:51:00 Paul Bean [facility] POCT GLUCOSE (AUTOMATED) 2020-12-16 04:00:00 Harrison, Premal G Uni versity of [facility] POCT GLUCOSE (AUTOMATED) 2020-12-16 00:14:00 Harrison, Premal G Uni versity [facility] CT CHEST PULMONARY 2020-12-15 22:29:38 Paul Bean [facility] ANGIOGRAM [facility] POCT GLUCOSE (AUTOMATED) 2020-12-15 19:26:00 Harrison, Premal [facility] POCT GLUCOSE (AUTOMATED) 2020-12-15 15:13:00 Krupa, Premal G Uni [facility] HB ECG ROUTINE & RHYTHM 2020-12-15 14:25:27 Cailin Romo [facility] MAGNESIUM 2020-12-15 12:01:00 Paul Bean Sivakumar [facility] BASIC METABOLIC PANEL 2020-12-15 12:01:00 Paul Bean [facility] (NA, K, CL, CO2, GLUCOSE, [facility] BUN, CREATININE, CA) CBC WITH DIFF 2020-12-15 12:01:00 Paul Bean [facility] POCT GLUCOSE (AUTOMATED) 2020-12-15 03:57:00 Harrison, Premal G Uni versity of [facility] POCT GLUCOSE (AUTOMATED) 2020-12-14 23:31:00 Harrison, Premal G Uni versity of [facility] POCT GLUCOSE (AUTOMATED) 2020-12-14 19:08:00 Harrison, Premal G Uni versity of [facility] POCT GLUCOSE (AUTOMATED) 2020-12-14 15:11:00 Harrison, Premal G Uni versity of [facility] POCT GLUCOSE (AUTOMATED) 2020-12-14 02:36:00 Harrison, Premal G Uni versity of [facility] POCT GLUCOSE (AUTOMATED) 2020-12-13 23:32:00 Harrison, Premal G Uni versity of [facility] POCT GLUCOSE (AUTOMATED) 2020-12-13 18:08:00 Harrison, Premal G Uni versity of [facility] BASIC METABOLIC PANEL 2020-12-13 15:39:00 Paul Bean [facility] (NA, K, CL, CO2, GLUCOSE, [facility] BUN, CREATININE, CA) CBC WITH DIFF 2020-12-13 15:39:00 Paul Bean [facility] POCT GLUCOSE (AUTOMATED) 2020-12-13 14:06:00 Harrison, Premal G Uni versity of [facility] POCT GLUCOSE (AUTOMATED) 2020-12-13 03:07:00 Harrison, Premal G Uni versity of [facility] POCT GLUCOSE (AUTOMATED) 2020-12-12 23:52:00 Harrison, Premal G Uni versity of [facility] POCT GLUCOSE (AUTOMATED) 2020-12-12 20:28:00 Harrison, Premal G Uni versity of [facility] POCT GLUCOSE (AUTOMATED) 2020-12-12 19:14:00 Harrison, Premal G Uni versity of [facility] POCT GLUCOSE (AUTOMATED) 2020-12-12 14:33:00 Harrison, Premal G Uni versity of [facility] MAGNESIUM 2020-12-12 08:58:00 Paul Bean [facility] BASIC METABOLIC PANEL 2020-12-12 08:58:00 Paul Bean [facility] (NA, K, CL, CO2, GLUCOSE, Klaey Medica l Branch BUN, CREATININE, CA) CBC WITH DIFF 2020-12-12 08:58:00 Paul Bean [facility] US ABDOMEN LIMITED 2020-12-12 06:32:26 Paul Bean [facility] POCT GLUCOSE (AUTOMATED) 2020-12-12 03:40:00 Harrison, Premal G Uni versity of [facility] POCT GLUCOSE (AUTOMATED) 2020-12-12 00:06:00 Harrison, Premal G Uni versity of [facility] XR HIPS 3 VW LEFT 2020-12-11 20:20:00 Paul Bean Sivakumar [facility] HB ECG ROUTINE & RHYTHM 2020-12-11 20:04:06 Demetrius [facility] STRIP [facility] VITAMIN B6, PLASMA 2020-12-11 19:17:00 Darnell [facility] POCT GLUCOSE (AUTOMATED) 2020-12-11 19:06:00 Vika Harrison [facility] CREATINE KINASE 2020-12-11 18:22:00 Parvez [facility] VITAMIN B12, LEVEL 2020-12-11 18:22:00 Vikas [facility] FOLATE 2020-12-11 18:22:00 [facility] THYROID STIMULATING 2020-12-11 18:22:00 Demetrius [facility]3] HORMONE [facility] PROCALCITONIN 2020-12-11 18:22:00 Vikas [facility] VITAMIN B1 (THIAMINE), 2020-12-11 18:22:00 [facility] WHOLE BLOOD [facility] CT HEAD WO CONTRAST 2020-12-11 14:07:35 Sweetie Stout [facility] URINALYSIS 2020-12-11 13:44:00 Singer [facility] URINE CULTURE 2020-12-11 13:44:00 Singer [facility] COVID-19 (ID NOW RAPID 2020-12-11 12:31:00 Paco Lacey [facility] TESTING) Medical Branch LAB ONLY COVID 2020-12-11 12:31:00 Singer [facility] INTERPRETATION [facility] XR CHEST 1 VW 2020-12-11 12:07:24 Singer [facility] BLOOD CULTURE SCREEN 2020-12-11 12:02:00 Paco Lacey [facility] MAGNESIUM 2020-12-11 12:02:00 Vikas [facility] FERRITIN SERUM 2020-12-11 12:02:00 Paul Bean [facility] Kaley [facility] COMP. METABOLIC PANEL 2020-12-11 12:02:00 Singer [facility] ([id number]) [facility] CBC WITH DIFF 2020-12-11 12:02:00 Singer [facility] LACTIC ACID WHOLE BLOOD 2020-12-11 12:02:[address] [facility] BLOOD CULTURE SCREEN 2020-12-11 11:42:00 Singer Paco [facility] EMERGENCY SERVICES 2020-12-11 06:01:00 Doctor Unassigned, [facility] AGREEMENTS AND [place] [facility] [place] AUTHORIZATIONS HOSPITAL ADMISSION 2020-12-11 06:01:00 Doctor Unaowen, [facility] Name [facility] [place] HOME HEALTH - OTHER 2020-11-11 06:01:00 Doctor Tabitha [facility] Name Medical [place] HOME HEALTH - OTHER 2020-10-30 06:01:00 Doctor Unaowen [facility] Name Medical [place] EXTERNAL PROVIDER RECORDS 2020-09-01 06:01:00 Doctor Tabitha, [facility] Name [facility] POCT GLUCOSE (AUTOMATED) 2020-08-23 18:09:00 Kelly Washington [facility] POCT GLUCOSE (AUTOMATED) 2020-08-23 14:14:00 Kelly Washington [facility] MAGNESIUM 2020-08-23 11:18:00 T[place]on [facility] BASIC METABOLIC PANEL 2020-08-23 11:18:00 Tipton [facility] (NA, K, CL, CO2, GLUCOSE, Medica l Branch BUN, CREATININE, CA) CBC WITH DIFF 2020-08-23 11:18:00 [place] [facility] POCT GLUCOSE (AUTOMATED) 2020-08-23 10:21:00 Kelly Washington [facility] POCT GLUCOSE (AUTOMATED) 2020-08-23 05:55:00 Kelly Washington [facility] POCT GLUCOSE (AUTOMATED) 2020-08-23 03:00:00 Stefania [facility] PO[facility]UCOSE (AUTOMATED) 2020-08-22 23:38:00 Bety Washingtonmarie Elias versity of [facility] POCT GLUCOSE (AUTOMATED) 2020-08-22 19:04:00 Bety Washingtonmarie [facility] POCT GLUCOSE (AUTOMATED) 2020-08-22 13:49:00 Kelly Washington Jada versity [facility] MAGNESIUM 2020-08-22 10:10:00 [facility] 2020-08-22 10:10:00 Aguila Melchor [facility] ([id number]) (ALB,T.PRO,BILI Medical Branch T,BU/BC,ALT,AST,ALK PHOS) BASIC METABOLIC PANEL 2020-08-22 10:10:00 [facility] (NA, K, CL, CO2, GLUCOSE, Medica l Branch BUN, CREATININE, CA) LIPID PANEL ([id number])(TOTAL 2020-08-22 10:10:00 [place], [facility] CHOLESTEROL, Medical [place] TRIGLYCERIDES, HDL) CBC WITH DIFF 2020-08-22 10:10:00 [facility] POCT GLUCOSE (AUTOMATED) 2020-08-22 10:10:00 Bety Washingtonmarie Elias [facility] POCT GLUCOSE (AUTOMATED) 2020-08-22 07:13:00 Kelly Washington Jada versity [facility] POCT GLUCOSE (AUTOMATED) 2020-08-22 02:24:00 Bety Washingtonmarie Elias versity [facility] POCT GLUCOSE (AUTOMATED) 2020-08-21 23:40:00 Kelly Washington Jada versity of [facility] POCT GLUCOSE (AUTOMATED) 2020-08-21 18:10:00 Kelly Washington Jada versity [facility] POCT GLUCOSE (AUTOMATED) 2020-08-21 13:39:00 Kelly Washington Jada versity [facility] ETHANOL 2020-08-21 12:35:00 [facility] 2020-08-21 12:35:00 Stefania [facility] GALV ONLY - SYPHILIS 2020-08-21 12:35:00 Stefania [facility] IGG/IGM [facility] LACTATE DEHYDROGENASE 2020-08-21 10:09:00 Ramya, [facility] GALV/CLC ONLY - URINE 2020-08-21 10:09:00 Richie [facility] DRUG (IMMUNOASSAY) - 4 ER Medica l Branch PANEL URINALYSIS 2020-08-21 10:09:00 Ramya, [facility] URINE CULTURE 2020-08-21 10:09:00 Ramya, [facility] PROCALCITONIN 2020-08-21 10:09:00 Ramya, [facility] POCT GLUCOSE (AUTOMATED) 2020-08-21 09:41:00 Stefania Kelly [facility] PROTHROMBIN TIME / INR 2020-08-21 08:32:00 Ramya, [facility] ACTIVATED PARTIAL 2020-08-21 08:32:00 [place], [facility] C-REACTIVE PROTEIN 2020-08-21 08:31:00 Ramya, [facility] HEPATIC FUNCTION PANEL 2020-08-21 08:31:00 [place]on, [facility] ([id number]) (ALB,T.PRO,BILI Medical Branch T,BU/BC,ALT,AST,ALK PHOS) BASIC METABOLIC PANEL 2020-08-21 08:31:00 [place], [facility] (NA, K, CL, CO2, GLUCOSE[facility] BUN, CREATININE, CA) SEDIMENTATION RATE 2020-08-21 08:31:00 Ramya, [facility] CBC WITH DIFF 2020-08-21 08:31:00 [place], [facility] GLYCOSYLATED HEMOGLOBIN 2020-08-21 08:31:00 [place], [facility] (A1C) Medical Branch HIV 1/2 AG-AB WITH REFLEX 2020-08-21 08:31:00 Kelly [place] [facility] [place] [facility] COVID-19 (ID NOW RAPID 2020-08-21 08:20:00 [facility] TESTING) Medical Branch LAB ONLY COVID 2020-08-21 08:20:00 [place] [facility] [place] INTERPRETATION [facility] Branch Encounters Start End Encounter Admission Attending Care Care Encounter Source Date/Time Date/Time Type Type Clinicians Facility Department ID 2020-08-21 Inpatient U ST[facility]ANIA [facility] [id number] Univers 01:07:00 KELLY brandenana [facility] 2021-08-22 2021-08-22 [id number] Univers 06:21:00 08:02:00 SWEETIE cantu [facility] 2021-08-22 2021-08-22 Emergency [facility] [id number] Univers 06:21:00 08:02:00 Sweetie LOTT [id number] i ty of [place] [id number] [facility] 084 Branch 2021-08-09 2021-08-09 Outpatient JACQUELYN HAINES [facility] [id number] [facility] 10:27:03 10:27:03 ADRIANA lopez of Medicin e 2020-12-28 2020-12-28 Telephone [facility] 1.2.840.114 [id number] 00:00:00 00:00:00 Calvin H PRIMARY [id number] CARE 4.2.7.2.686 PAVILLION [id number] 220 2020-12-28 2020-12-28 Telephone [facility] 1.2.840.114 [id number] Univers 00:00:00 00:00:00 Calvin H PRIMARY [id number] it y [place] [id number] Ok dical 220 Branch 2020-12-19 2020-12-19 Transition Tuan Peters 1.2.840.114 [id number] 00:00:00 00:00:00 of Care Ruchi Braswell [id number] [place] 4.2.7.2.686 [id number] 403 2020-12-19 2020-12-19 Transition Tuan Peters 1.2.840.114 [id number] Univers 00:00:00 00:00:00 of Care Ruchi Braswell 350.1.13.10 [place] [id number] [facility] 403 Branch 2020-12-11 2020-12-17 [facility] Paco Lacey 1.2.840.1 [id number] 05:11:00 16:00:00 Encounter Vika Harrison Monique [id number] [facility] 4.2.7.2.686 [id number] [facility] 2020-12-11 2020-12-17 [facility] Paco Lacey 1.2.840.1 [id number] [facility] 05:11:00 16:00:00 Encounter Vika Harrison Monique 350.1.13.10 ity [facility] 4.2.7.[address] [place] [address] [id number] [facility] 096 Branch 2020-12-11 2020-12-17 Inpatient X [facility] [id number] Univers 05:11:00 16:00:00 pepe [facility] 2020-11-16 2020-11-16 Emergency X [facility] ERT [id number] [facility] 09:31:00 09:31:00 PACO cantu [facility] 2020-11-11 2020-11-11 Orders Doctor CUI 1.2.840.114 [id number] 00:00:00 00:00:00 Only UnassignedMONIQUE 350.1.13.10 [place] [facility] 4.2.7.2.686 [id number] 009 2020-11-11 2020-11-11 Orders Doctor CUI 1.2.840.114 [id number] [facility] 00:00:00 00:00:00 Only Unassigned, MONIQUE 350.1.13.10 ity of [place] [facility] 4.2.7.2.686 Jeff as [id number] [address] 2020-11-07 2020-11-07 [facility]phone [facility] [id number] 00:00:00 00:00:00 Angi Lott 350.1.13.10 [place] 4.2.7.2.686 Professio [id number] [address] 2020-11-07 2020-11-[address] [facility] [id number] [facility] 00:00:00 00:00:00 Angi Lott 350.1.13.10 ity of [place] Profess[place] [id number] Ok dic[address] 2020-10-30 2020-10-30 Orders Doctor BASILIA 1.2.840.114 [id number] 00:00:00 00:00:00 Only Unassigned, MONIQUE 350.1.13.10 [place] [facility] 4.2.7.2.686 [id number] [facility] 2020-10-30 2020-10-30 Orders Doctor BASILIA 1.2.840.114 [id number] [facility] 00:00:00 00:00:00 Only Unassigned, MONIQUE 350.1.13.10 ity of [place] [facility]OSPITAL 4.2.7.2.686 Jeff as [id number] [address] 2020-09-26 2020-09-26 Telephone Eliot [facility] 1.2.840.114 [id number] 00:00:00 00:00:00 [facility] 350.1.13.10 CLINICS 4.2.7.2.686 [id number] [facility] 2020-09-26 2020-09-26 Telephone Eliot [facility] 1.2.840.114 [id number] [facility] 00:00:00 00:00:00 [facility] 350.1.13.10 i ty of CL[place] [id number] [address] 2020-09-01 2020-09-01 Orders Doctor BASILIA 1.2.840.114 [id number] 00:00:00 00:00:00 Only Unassigned, MONIQUE 350.1.13.10 [place] [facility] 4.2.7.2.686 [id number] [id number] 2020-09-01 2020-09-01 Orders Doctor BASILIA 1.2.840.114 [id number] Univers 00:00:00 00:00:00 Only Unassigned, MONIQUE 350.1.13.10 ity of [place] [facility] 4.2.7.2.686 Jeff as [id number] [facility] 009 Branch 2020-08-25 2020-08-25 Transition Tuan Peters 1.2.840.114 [id number] 00:00:00 00:00:00 of Care Ruchi Braswell 350.1.13.10 [place] 4.2.7.2.686 [id number] 403 2020-08-25 2020-08-25 Transition Tuan Peters 1.2.840.114 [id number] Univers 00:00:00 00:00:00 of Care Ruchi Braswell 350.1.13.10 it [place] [id number] [facility] 403 [place] 2020-08-21 2020-08-23 [facility] Ayleen 1.2.840.114 [id number] 01:07:00 18:35:00 Encounter Kelly Monique 350.1.13.10 [facility] 4.2.7.2.686 [id number] [facility] 2020-08-21 2020-08-23 [facility] 1. 2.840.114 [id number] [facility] 01:07:00 18:35:00 Encounter Mukul Gallardo 350.1.13. 10 ity of [facility] 4.2.7.2.686 Jeff as [id number] [address] Results Test Description Test Time Test Comments Results Result Comments Source POCT GLUCOSE (AUTOMATED) 2020-12-17 15:43:35 Test Item Value Reference Range Interpretation Comme nts POCT GLU (test code = 2865742096) 129 mg/dL 70-110 H Lab Interpretation (test code = 31433-4) Abnormal [facility] (NA, K, CL, CO2, GLUCOSE, BUN, CREATININE, CA)2020-12-17 11:45:07 Test Item Value Reference Range Interpretation Comments NA (test code = 137 mmol/L 135-145 9258627853) K (test code = 3.5 mmol/L 3.5-5.0 3760776561) CL (test code = 103 mmol/L 98-108 4317356794) CO2 TOTAL (test code = 26 mmol/L 23-31 7861850552) AGAP (test code = 2-16 6580256593) BUN (test code = 11 mg/dL 7-23 4353169912) GLUCOSE (test code = 175 mg/dL 70-110 H 3878672883) CREATININE (test code = 0.62 mg/dL 0.60-1.25 0043261802) CALCIUM (test code = 9.0 mg/dL 8.6-10.6 3879032778) eGFR Calculation mL/min/1.73m2 (Non-) (test code = 8599348756) eGFR Calculation mL/min/1.73m2 () (test code = 0047914492) JAMES (test code = JAMES) Association of [...] tests). Lab Interpretation Abnormal (test code = 85466-7) [facility] WITH [id number] 11:07:27 Test Item Value Reference Range Interpretation [...] RDW-SD (test code = 45.2 fL 38.5-51.6 52614-6) RDW-CV (test code = 16.9 % 12.1-15.4 H 788-0) PLT (test code = See_Comment H [Automated 777-3) message] The sy stem which generated this result transmitted reference range : 150 - 328 10*3/ ?L. The reference r torito was not used to interpret this result as normal/abnormal . MPV (test code = 8.1 fL 9.8-13.0 L 42449-8) NRBC/100 WBC (test See_Comment [Automat ed code = 8652741665) message] The system which generated this result transmitted reference range : 0.0 - 10.0 /100 WBCs. The refer ence range was not u sed to interpret th is result as normal/abnormal . NRBC x10^3 (test code <0.01 See_Comment [Auto mated = 9071042972) message] The s ystem which generated this result transmitted reference range : 10*3/?L. The reference range was not used to interpret this result as normal/abnormal . GRAN MAT (NEUT) % 72.8 % (test code = 770-8) IMM GRAN % (test code 0.60 % = 7764373328) LYMPH % (test code = 18.4 % 736-9) MONO % (test code = 5.7 % 5905-5) EOS % (test code = 1.8 % 713-8) BASO % (test code = 0.7 % 706-2) GRAN MAT x10^3(ANC) 8.23 10*3/uL 1.99-6.95 H (test code = 8994151101) IMM GRAN x10^3 (test 0.07 10*3/uL 0.00-0.06 H code = 2858915351) LYMPH x10^3 (test code 2.08 10*3/uL 1.09-3.23 = 731-0) MONO x10^3 (test code 0.65 10*3/uL 0.36-1.02 = 742-7) EOS x10^3 (test code = 0.20 10*3/uL 0.06-0.53 711-2) BASO x10^3 (test code 0.08 10*3/uL 0.01-0.09 = 704-7) Lab Interpretation Abnormal (test code = 84720-0) [facility]2020-12-17 06:03:38 Test Item Value Reference Range Interpretation Comments POCT GLU (test code = 9892157543) 75 mg/dL 70-110 Lab Interpretation (test code = Normal 05168-5) [facility], [id number] 00:01:00 Test Item Value Reference Range Interpretation Comments VIT B6 (test code = 13.1 nmol/L 20.0-125.0 L INTERPRE TIVE 26599-4) INFORMATION: Vi tamin B6 (Pyridoxal 5-Phosphate) Pyridoxal 5'-phosphate me asured in a specimen collected follo wing an 8-hour or overnight fast accurately clara keene vitamin B6 nutritional sta tus. Non-fasting spe cimen concentration reflects recent vitamin intake. This test was develo ped and its perform ance characteristics determined by [facility]. I t has not been cleare d or approved by the [place] Food and Drug Administration. This test was perfor med in a CLIA certifie d laboratory and is intended for cl inical purposes.Perfor med By: [employer] [place] [address] [id number] Director: Namrata Klein MD Lab Interpretation Abnormal (test code = 79144-2) [facility] TIBIA FIBULA 2 VW [id number] 23:57:09 Tricompartmental knee joint osteoarthrosis.XR TIBIA FIBULA [...] acute fracture or dislocation.IMPRESSIONTricompartmental knee joint osteoarthrosis.[facility] GLUCOSE (AUTOMATED) 2020-12-16 23:27:00 Test Item Value Reference Range Interpretation Comments POCT GLU (test code = 7627894102) 114 mg/dL 70-110 H Lab Interpretation (test code = Abnormal 50811-6) [facility] GLUCOSE (AUTOMATED)2020-12-16 20:12:00 Test Item Value Reference Range Interpretation Comments POCT GLU (test code = 1221234152) 105 mg/dL 70-110 Lab Interpretation (test code = Normal 10348-2) [facility] GLUCOSE (AUTOMATED)2020-12-16 14:44:00 Test Item Value Reference Range Interpretation Comments POCT GLU (test code = 9833990480) 153 mg/dL 70-110 H Lab Interpretation (test code = Abnormal 64748-9) [facility] METABOLIC PANEL (NA, K, CL, CO2, GLUCOSE, BUN, CREATININE, CA)2020-12-16 14:23:00 Test Item Value Reference Range Interpretation Comments NA (test code = 138 mmol/L 135-145 2978174869) K (test code = 3.4 mmol/L 3.5-5.0 L 8135806206) CL (test code = 100 mmol/L 98-108 8730132187) CO2 TOTAL (test code = 31 mmol/L 23-31 6162093970) AGAP (test code = 2-16 4631461869) BUN (test code = 11 mg/dL 7-23 3015147287) GLUCOSE (test code = 162 mg/dL 70-110 H 4154430153) CREATININE (test code = 0.64 mg/dL 0.60-1.25 6760152750) CALCIUM (test code = 8.9 mg/dL 8.6-10.6 1555118582) eGFR Calculation mL/min/1.73m2 (Non-) (test code = 6894729160) eGFR Calculation mL/min/1.73m2 () (test code = 8313948581) JAMES (test code = JAMES) Association of [...] tests). Lab Interpretation Abnormal (test code = 74590-8) [facility] WITH [id number] 14:05:00 Test Item Value Reference Range Interpretation [...] RDW-SD (test code = 45.4 fL 38.5-51.6 53922-5) RDW-CV (test code = 17.0 % 12.1-15.4 H 788-0) PLT (test code = See_Comment H [Automated 777-3) message] The sy stem which generated this result transmitted reference range : 150 - 328 10*3/ ?L. The reference r torito was not used to interpret this result as normal/abnormal . MPV (test code = 8.0 fL 9.8-13.0 L 21909-7) NRBC/100 WBC (test See_Comment [Automat ed code = 4492583088) message] The system which generated this result transmitted reference range : 0.0 - 10.0 /100 WBCs. The refer ence range was not u sed to interpret th is result as normal/abnormal . NRBC x10^3 (test code <0.01 See_Comment [Auto mated = 3556113021) message] The s ystem which generated this result transmitted reference range : 10*3/?L. The reference range was not used to interpret this result as normal/abnormal . GRAN MAT (NEUT) % 70.0 % (test code = 770-8) IMM GRAN % (test code 0.70 % = 5455006536) LYMPH % (test code = 20.5 % 736-9) MONO % (test code = 7.1 % 5905-5) EOS % (test code = 1.0 % 713-8) BASO % (test code = 0.7 % 706-2) GRAN MAT x10^3(ANC) 9.44 10*3/uL 1.99-6.95 H (test code = 0188582869) IMM GRAN x10^3 (test 0.09 10*3/uL 0.00-0.06 H code = 9932566888) LYMPH x10^3 (test code 2.76 10*3/uL 1.09-3.23 = 731-0) MONO x10^3 (test code 0.96 10*3/uL 0.36-1.02 = 742-7) EOS x10^3 (test code = 0.13 10*3/uL 0.06-0.53 711-2) BASO x10^3 (test code 0.10 10*3/uL 0.01-0.09 H = 704-7) Lab Interpretation Abnormal (test code = 94934-0) 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 Blood No organisms No growth Previous Culture-Anaerobic isolated preliminar y (test code = 77315-0) verifi ed result was Culture In Progress on 12/11/2020 at 100 1 CSTPrevious preliminary verified result was No growth a t 24 hours on 12/12/2020 at 070 1 CSTPrevious preliminary verified result was No growth a t 48 hours on 12/13/2020 at 070 1 CSTPrevious preliminary verified result was No growth a t 72 hours on 12/14/2020 at 070 1 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 Lab Interpretation Normal (test code = 57630-4) [facility] Culture - Peripheral # [id number] 13:01:00 Test Item Value Reference Range Interpretation Comments Blood Culture-Aerobic No organisms No growth Previo us (test code = 44609-4) isolated prelim inary verified result was Culture In Progress on 12/11/2020 at 100 1 CSTPrevious preliminary verified result was No growth a t 24 hours on 12/12/2020 at 070 1 CSTPrevious preliminary verified result was No growth a t 48 hours on 12/13/2020 at 070 1 CSTPrevious preliminary verified result was No growth a t 72 hours on 12/14/2020 at 070 1 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 GLUCOSE (AUTOMATED)2020-12-16 04:01:00 Test Item Value Reference Range Interpretation Comments POCT GLU (test code = 4933605590) 156 mg/dL 70-110 H Lab Interpretation (test code = Abnormal 24122-2) [facility]2020-12-16 00:24:00 Test Item Value Reference Range Interpretation Comments POCT GLU (test code = 5462573704) 115 mg/dL 70-110 H Lab Interpretation (test code = Abnormal 99173-4) [facility] CHEST PULMONARY [id number] 23:34:55No pulmonary emboli. No interval change in [...] stableappearance of intra and extrahepatic biliary ductal dilatation.[facility] GLUCOSE (AUTOMATED)2020-12-15 19:28:00 Test Item Value Reference Range Interpretation Comments POCT GLU (test code = 0496343586) 140 mg/dL 70-110 H Lab Interpretation (test code = Abnormal 05210-0) [facility] 15:26:00 Test Item Value Reference Range Interpretation Comments MAGNESIUM (test code = 5229731413) 2.2 mg/dL 1.7-2.4 Lab Interpretation (test code = Normal 28769-0) [facility] GLUCOSE (AUTOMATED)2020-12-15 15:15:00 Test Item Value Reference Range Interpretation Comments POCT GLU (test code = 8413260338) 181 mg/dL 70-110 H Lab Interpretation (test code = Abnormal 04628-5) [facility] METABOLIC PANEL (NA, K, CL, CO2, GLUCOSE, BUN, CREATININE, CA)2020-12-15 13:07:00 Test Item Value Reference Range Interpretation Comments NA (test code = 136 mmol/L 135-145 4860266770) K (test code = 3.6 mmol/L 3.5-5.0 0584545880) CL (test code = 96 mmol/L 98-108 L 3383190367) CO2 TOTAL (test code = 29 mmol/L 23-31 1937586895) AGAP (test code = 2-16 3830146045) BUN (test code = 12 mg/dL 7-23 1256297927) GLUCOSE (test code = 183 mg/dL 70-110 H 8516158684) CREATININE (test code = 0.70 mg/dL 0.60-1.25 0933488292) CALCIUM (test code = 9.2 mg/dL 8.6-10.6 7313590127) eGFR Calculation mL/min/1.73m2 (Non-) (test code = 9326561172) eGFR Calculation mL/min/1.73m2 () (test code = 4798383915) JAMES (test code = JAMES) Association of [...] tests). Lab Interpretation Abnormal (test code = 48248-0) [facility] WITH [id number] 12:32:00 Test Item Value Reference Range Interpretation Comments WBC (test code = See_Comment H [Automated 1890-2) message] The system which generated this result transmit ronan reference range : 4.20 - 10.70 10*3/?L. The reference range was not used to interpret this result as normal/abnormal . RBC (test code = See_Comment H [Automated 959-8) message] The system which generated this result [...] RDW-SD (test code = 44.4 fL 38.5-51.6 32391-7) RDW-CV (test code = 17.7 % 12.1-15.4 H 788-0) PLT (test code = See_Comment H [Automated 777-3) message] The system which generated this result transmit ronan reference range : 150 - 328 10*3/ ?L. The reference range was not u sed to interpret th is result as normal/abnormal . MPV (test code = 8.1 fL 9.8-13.0 L 12880-7) NRBC/100 WBC (test See_Comment [Automat ed code = 0105152310) message] The system which generated this result transmit ronan reference range : 0.0 - 10.0 /100 WBCs. The reference range was not used to interpret this result as normal/abnormal . NRBC x10^3 (test code <0.01 See_Comment [Auto mated = 4913378617) message] The system which generated this result transmit ronan reference range : 10*3/?L. The reference range was not used to interpret this result as normal/abnormal . GRAN MAT (NEUT) % 74.5 % (test code = 770-8) IMM GRAN % (test code 0.70 % = 1082991241) LYMPH % (test code = 17.4 % 736-9) MONO % (test code = 6.8 % 5905-5) EOS % (test code = 0.2 % 713-8) BASO % (test code = 0.4 % 706-2) GRAN MAT x10^3(ANC) 11.99 10*3/uL 1.99-6.95 H (test code = 1560334858) IMM GRAN x10^3 (test 0.11 10*3/uL 0.00-0.06 H code = 3909639527) LYMPH x10^3 (test code 2.80 10*3/uL 1.09-3.23 = 731-0) MONO x10^3 (test code 1.10 10*3/uL 0.36-1.02 H = 742-7) EOS x10^3 (test code = 0.03 10*3/uL 0.06-0.53 L 711-2) BASO x10^3 (test code 0.06 10*3/uL 0.01-0.09 = 704-7) Lab Interpretation Abnormal (test code = 52826-2) [facility] GLUCOSE (AUTOMATED)2020-12-15 04:16:00 Test Item Value Reference Range Interpretation Comments POCT GLU (test code = 6087504827) 200 mg/dL 70-110 H Lab Interpretation (test code = Abnormal 92763-3) [facility]IT[facility] (THIAMINE), WHOLE [id number] 00:30:00 Test Item Value Reference Range Interpretation Comments Vitamin B1, Whole 136 nmol/L 70-180 INTERPRETI VE INFORMATION: Blood (test code = Vitamin B 1, Whole Blood 87008-0) This assay júnior ures the concentration o f thiamine diphosphate (TD P), the primary active form of vitamin B1. Nick roximately 90 percent of v itamin B1 present in whol e blood is TDP. Thiamine a nd thiamine monoph osphate, which comprise the remaining 10 pe rcent, are not measured. T his test was developed a nd its performance characteristics determined by [facility]. I t has not been cleared or approved by the [place] Food and Drug Administration. This test was performed i n a CLIA certified labor atory and is intended for clinical purposes.Perfor med By: [facility] [address] [place], [place] [address]S aboratory Director: Namrata Klein MD [facility] GLUCOSE (AUTOMATED)2020-12-14 23:35:00 Test Item Value Reference Range Interpretation Comments POCT GLU (test code = 9139700954) 151 mg/dL 70-110 H Lab Interpretation (test code = Abnormal 24239-4) [facility] GLUCOSE (AUTOMATED)2020-12-14 19:19:00 Test Item Value Reference Range Interpretation Comments POCT GLU (test code = 3653618107) 193 mg/dL 70-110 H Lab Interpretation (test code = Abnormal 28198-3) [facility] GLUCOSE (AUTOMATED)2020-12-14 15:22:00 Test Item Value Reference Range Interpretation Comments POCT GLU (test code = 8273744782) 221 mg/dL 70-110 H Lab Interpretation (test code = Abnormal 79501-0) [facility] GLUCOSE (AUTOMATED)2020-12-14 02:37:00 Test Item Value Reference Range Interpretation Comments POCT GLU (test code = 2269620224) 210 mg/dL 70-110 H Lab Interpretation (test code = Abnormal 73039-8) [facility] GLUCOSE (AUTOMATED)2020-12-13 23:33:00 Test Item Value Reference Range Interpretation Comments POCT GLU (test code = 7585441058) 182 mg/dL 70-110 H Lab Interpretation (test code = Abnormal 87405-3) [facility] GLUCOSE (AUTOMATED)2020-12-13 18:09:00 Test Item Value Reference Range Interpretation Comments POCT GLU (test code = 8376265060) 150 mg/dL 70-110 H Lab Interpretation (test code = Abnormal 75710-8) [facility] METABOLIC PANEL (NA, K, CL, CO2, GLUCOSE, BUN, CREATININE, CA)2020-12-13 16:27:00 Test Item Value Reference Range Interpretation Comments NA (test code = 136 mmol/L 135-145 9767056067) K (test code = 3.7 mmol/L 3.5-5.0 2753399704) CL (test code = 96 mmol/L 98-108 L 2256745060) CO2 TOTAL (test code = 29 mmol/L 23-31 8031447206) AGAP (test code = 2-16 0699907336) BUN (test code = 6 mg/dL 7-23 L 7650304574) GLUCOSE (test code = 212 mg/dL 70-110 H 4521969949) CREATININE (test code = 0.61 mg/dL 0.60-1.25 9262360222) CALCIUM (test code = 9.5 mg/dL 8.6-10.6 9358338381) eGFR Calculation mL/min/1.73m2 (Non-) (test code = 3001203770) eGFR Calculation mL/min/1.73m2 () (test code = 8068198054) JAMES (test code = JAMES) Association of [...] tests). Lab Interpretation Abnormal (test code = 16532-8) [facility] WITH [id number] 16:10:00 Test Item Value Reference Range Interpretation [...] RDW-SD (test code = 43.3 fL 38.5-51.6 48374-5) RDW-CV (test code = 16.2 % 12.1-15.4 H 788-0) PLT (test code = See_Comment H [Automated 777-3) message] The sy stem which generated this result transmitted reference range : 150 - 328 10*3/ ?L. The reference r torito was not used to interpret this result as normal/abnormal . MPV (test code = 8.2 fL 9.8-13.0 L 41763-7) NRBC/100 WBC (test See_Comment [Automat ed code = 9857465431) message] The system which generated this result transmitted reference range : 0.0 - 10.0 /100 WBCs. The refer ence range was not u sed to interpret th is result as normal/abnormal . NRBC x10^3 (test code <0.01 See_Comment [Auto mated = 3735446372) message] The s ystem which generated this result transmitted reference range : 10*3/?L. The reference range was not used to interpret this result as normal/abnormal . GRAN MAT (NEUT) % 86.2 % (test code = 770-8) IMM GRAN % (test code 0.70 % = 0931234996) LYMPH % (test code = 10.2 % 736-9) MONO % (test code = 2.5 % 5905-5) EOS % (test code = 0.1 % 713-8) BASO % (test code = 0.3 % 706-2) GRAN MAT x10^3(ANC) 9.61 10*3/uL 1.99-6.95 H (test code = 9960198297) IMM GRAN x10^3 (test 0.08 10*3/uL 0.00-0.06 H code = 0791863940) LYMPH x10^3 (test code 1.14 10*3/uL 1.09-3.23 = 731-0) MONO x10^3 (test code 0.28 10*3/uL 0.36-1.02 L = 742-7) EOS x10^3 (test code = <0.03 0.06-0.53 L 711-2) BASO x10^3 (test code 0.03 10*3/uL 0.01-0.09 = 704-7) Lab Interpretation Abnormal (test code = 16899-8) [facility]2020-12-13 14:16:00 Test Item Value Reference Range Interpretation Comments POCT GLU (test code = 1889198037) 236 mg/dL 70-110 H Lab Interpretation (test code = Abnormal 38556-8) [facility] COVID [id number] 04:58:00COVID DMT InterpretationInterpretation/Recommendations: Molecular NAAT Tests for [...] testing the patient has had at [facility], including molecular NAAT testing (more commonly known as PCR testing and Rapid ID Now testing) and antibody testing. It does not take into account any testingthat a patient has had outside of the [facility] medical record. [facility] LABORATORY SERVICESCOVID NpmjmdiJMSC-XqK-1 Rapid ID NOW (no units) ? ? Date ? Value ? 12/11/2020 ? Not Detected ? ? ? 11/16/2020 ? Not Detected ? ? ? 08/21/2020 ? Not Detected ? [facility] 2020-12-13 03:11:00 Test Item Value Reference Range Interpretation Comments POCT GLU (test code = 8432838123) 171 mg/dL 70-110 H Lab Interpretation (test code = Abnormal 91370-8) [facility] GLUCOSE (AUTOMATED)2020-12-13 00:00:00 Test Item Value Reference Range Interpretation Comments POCT GLU (test code = 9008655223) 118 mg/dL 70-110 H Lab Interpretation (test code = Abnormal 75240-6) [facility] GLUCOSE (AUTOMATED)2020-12-12 20:29:00 Test Item Value Reference Range Interpretation Comments POCT GLU (test code = 6225724831) 173 mg/dL 70-110 H Lab Interpretation (test code = Abnormal 10089-8) [facility] ABDOMEN [id number] 19:56:17 1. ?Hepatic steatosis. However, limited evaluation [...] main portal veinwasevaluated with color Doppler imaging. Machinist Mechanic images were obtainedfor the record. COMPARISON: [...] portal vein wasevaluated with color Doppler imaging. Machinist Mechanic images wereobtainedfor the record.COMPARISON: Ultrasound abdomen [...] reviewed this study and agree with the abovereport.[facility]2020-12-12 19:24:00 Test Item Value Reference Range Interpretation Comments POCT GLU (test code = 8819838452) 230 mg/dL 70-110 H Lab Interpretation (test code = Abnormal 25916-3) [facility] 1 [id number] 15:16:46 Low lung volumes with mild perihilar [...] reviewed this study and agree with theabove report.[facility]2020-12-12 14:34:00 Test Item Value Reference Range Interpretation Comments POCT GLU (test code = 9472689810) 225 mg/dL 70-110 H Lab Interpretation (test code = Abnormal 09454-7) [facility] CenterURINE [id number] 13:28:00 Test Item Value Reference Range Interpretation Comments URINE CULTURE (test < 10,000 CFU/mL mixed code = 630-4) aerobic organisms - suggests endogenous microbial contamination [facility] (NA, K, CL, CO2, GLUCOSE, BUN, CREATININE, CA)2020-12-12 10:05:00 Test Item Value Reference Range Interpretation Comments NA (test code = 136 mmol/L 135-145 3572741642) K (test code = 3.5 mmol/L 3.5-5.0 4867331632) CL (test code = 100 mmol/L 98-108 5720882800) CO2 TOTAL (test code = 31 mmol/L 23-31 7900571387) AGAP (test code = 2-16 8437228717) BUN (test code = 7 mg/dL 7-23 2748752926) GLUCOSE (test code = 259 mg/dL 70-110 H 8693763365) CREATININE (test code = 0.63 mg/dL 0.60-1.25 2021020597) CALCIUM (test code = 8.5 mg/dL 8.6-10.6 L 3185135947) eGFR Calculation mL/min/1.73m2 (Non-) (test code = 8764444153) eGFR Calculation mL/min/1.73m2 () (test code = 9104250772) JAMES (test code = JAMES) Association of [...] tests). Lab Interpretation Abnormal (test code = 38654-4) [facility] CenterMagnesium [id number] 10:05:00 Test Item Value Reference Range Interpretation Comments MAGNESIUM (test code = 6862598355) 1.9 mg/dL 1.7-2.4 Lab Interpretation (test code = Normal 77705-0) [facility] with [id number] 09:48:00 Test Item Value Reference Range Interpretation Comments WBC (test code = See_Comment [Automated 7348-2) message] The sy stem which generated this result transmitted reference range : 4.20 - 10.70 10*3/?L. The reference range was not used to interpret this result as normal/abnormal . RBC (test code = See_Comment [Automated 410-9) message] The sy stem which generated this [...] RDW-SD (test code = 46.0 fL 38.5-51.6 27826-6) RDW-CV (test code = 16.1 % 12.1-15.4 H 788-0) PLT (test code = See_Comment H [Automated 777-3) message] The sy stem which generated this result transmitted reference range : 150 - 328 10*3/ ?L. The reference r torito was not used to interpret this result as normal/abnormal . MPV (test code = 8.6 fL 9.8-13.0 L 98716-6) NRBC/100 WBC (test See_Comment [Automat ed code = 7849705388) message] The system which generated this result transmitted reference range : 0.0 - 10.0 /100 WBCs. The refer ence range was not u sed to interpret th is result as normal/abnormal . NRBC x10^3 (test code <0.01 See_Comment [Auto mated = 0451087184) message] The s ystem which generated this result transmitted reference range : 10*3/?L. The reference range was not used to interpret this result as normal/abnormal . GRAN MAT (NEUT) % 70.2 % (test code = 770-8) IMM GRAN % (test code 0.30 % = 5524142143) LYMPH % (test code = 18.8 % 736-9) MONO % (test code = 5.0 % 5905-5) EOS % (test code = 5.2 % 713-8) BASO % (test code = 0.5 % 706-2) GRAN MAT x10^3(ANC) 6.05 10*3/uL 1.99-6.95 (test code = 6683801125) IMM GRAN x10^3 (test 0.03 10*3/uL 0.00-0.06 code = 8792955362) LYMPH x10^3 (test code 1.62 10*3/uL 1.09-3.23 = 731-0) MONO x10^3 (test code 0.43 10*3/uL 0.36-1.02 = 742-7) EOS x10^3 (test code = 0.45 10*3/uL 0.06-0.53 711-2) BASO x10^3 (test code 0.04 10*3/uL 0.01-0.09 = 704-7) Lab Interpretation Abnormal (test code = 95690-2) [facility]2020-12-12 03:42:00 Test Item Value Reference Range Interpretation Comments POCT GLU (test code = 196 mg/dL 70-110 H Notifi ed Provider 6035184143) Lab Interpretation (test Abnormal code = 90155-8) [facility]FOLATE2021-[facility] 02:24:00 Test Item Value Reference Range Interpretation Comments FOLATE SER (test code = 8193126401) 5.8 ng/mL 3.0-20.0 Lab Interpretation (test code = Normal 14079-6) [facility] CenterVITAMIN B12, [id number] 00:55:00 Test Item Value Reference Range Interpretation Comments VIT B12 (test code = 844 pg/mL 240-930 2213750483) JAMES (test code = JAMES) Biotin has been reported to cause a positive bias, interpret results relative to patient's use of biotin. Lab Interpretation (test Normal code = 91924-1) [facility] GLUCOSE (AUTOMATED)2020-12-12 00:14:00 Test Item Value Reference Range Interpretation Comments POCT GLU (test code = 8094414967) 164 mg/dL 70-110 H Lab Interpretation (test code = Abnormal 95336-2) [facility] CenterCREATINE [id number] 23:42:00 Test Item Value Reference Range Interpretation Comments CK (test code = 3631487905) <20 33-194 L Lab Interpretation (test code = Abnormal 52346-3) [facility] CenterTHYROID STIMULATING [id number] 23:17:00 Test Item Value Reference Range Interpretation Comments TSH (test code = See_Comment Biotin has been 4345702509) reported to cau se a negative bias, interpret resul ts relative to johnny bills's use of biotin. [Automated mess age] The system [employer] generated this result transmitted ref erence range: 0.45 - 4 .70 mIU/L. The refe rence range was not u sed to interpret this result as normal/abnor mal. Lab Interpretation (test Normal code = 98446-8) [facility]XR HIPS 3 VW [id number] 21:41:53No appreciable fracture lines. RL: 6200 ICAL [...] No osseous erosions.IMPRESSIONNo appreciable fracture lines.RL: 6200 [facility] CenterPROCALCITONIN2021-03-01 20:00:00 Test Item Value Reference Range Interpretation Comments Procalcitonin (test 0.13 ng/mL <0.07 H code = 4236440625) JAMES (test code = JAMES) INTERPRETATION OF [...] abscess/empyema. For further information please refer to:[email or web address] Lab Interpretation Abnormal (test code = 90124-5) [facility]2020-12-11 19:07:00 Test Item Value Reference Range Interpretation Comments POCT GLU (test code = 3041591497) 274 mg/dL 70-110 H Lab Interpretation (test code = Abnormal 08157-8) [facility]MAGNESIUM2021-03-01 18:31:00 Test Item Value Reference Range Interpretation Comments MAGNESIUM (test code = 5302821379) 1.9 mg/dL 1.7-2.4 Lab Interpretation (test code = Normal 56863-4) [facility] CenterFERRITIN [id number] 18:31:00 Test Item Value Reference Range Interpretation Comments FERRITIN (test code = 178.0 ng/mL 18.0-464.0 7607973300) JAMES (test code = JAMES) Biotin has been reported to cause a negative bias, interpret results relative to patient's use of biotin. Lab Interpretation (test Normal code = 61553-1) [facility] HEAD WO [id number] 14:36:47 No acute intracranial abnormality. Dilated ventricles [...] reviewed this study and agree with the abovereport.[facility] CenterURINALYSIS2021-03-01 14:28:00 Test Item Value Reference Range Interpretation Comments APPEARANCE (test code = Clear Clear 1715746721) COLOR (test code = Yellow Yellow 3265414247) PH (test code = 4.8-8.0 1925862024) SP GRAVITY (test code = 1.003-1.030 1391379780) GLU U QUAL (test code = 500 mg/dL Normal A 3428138064) BLOOD (test code = Negative Negative 7355899064) KETONES (test code = 5 mg/dL Negative A 1763275295) PROTEIN (test code = Negative Negative 2887-8) UROBILIN (test code = Normal Normal 2481865296) BILIRUBIN (test code = Negative Negative 4786164854) NITRITE (test code = Negative Negative 9742667905) LEUK RYAN (test code = Negative Negative 9637416808) RBC/HPF (test code = See_Comment [Autom ated message] 6240658717) The system [employer] generated this result transmit ronan reference range : 0 - 3 HPF. The refe rence range was not u sed to interpret th is result as normal/abnormal . WBC/HPF (test code = See_Comment [Autom ated message] 2260156018) The system [employer] generated this result transmit ronan reference range : 0 - 5 HPF. The refe rence range was not u sed to interpret th is result as normal/abnormal . BACTERIA (test code = Negative Negative 7834781215) MUCOUS (test code = Slight Negative LPF A 5789087514) SQ EPITH (test code = HPF 8431813996) Lab Interpretation (test Abnormal code = 12378-0) [facility]COVID[facility] (ID NOW RAPID TESTING)2020-12-11 13:10:00 Test Item Value Reference Range Interpretation Comments SARS-CoV-2 Rapid ID NOW Not Detected Not Detected (test code = 57800-4) JAMES (test code = JAMES) ID NOW COVID-19 Assay is an isothermal nucleic acid amplification test intended for the qualitative detection of nucleic acid from SARS-CoV-2 viral RNA in nasopharyngeal (MINE INSPECTOR) specimens. It is used under Emergency Use [...] indicated. Lab Interpretation Normal (test code = 04465-3) [facility]. METABOLIC PANEL (16163)2020-12-11 12:29:00 Test Item Value Reference Range Interpretation Comments NA (test code = 136 mmol/L 135-145 1007390972) K (test code = 3.5 mmol/L 3.5-5.0 3274622345) CL (test code = 95 mmol/L 98-108 L 2895484187) CO2 TOTAL (test code = 35 mmol/L 23-31 H 8990955040) AGAP (test code = 2-16 4211867543) BUN (test code = 9 mg/dL 7-23 5708476280) GLUCOSE (test code = 329 mg/dL 70-110 H 6387175005) CREATININE (test code = 0.72 mg/dL 0.60-1.25 1346005011) TOTAL BILI (test code = 0.6 mg/dL 0.1-1.5 9986601016) CALCIUM (test code = 9.0 mg/dL 8.6-10.6 7892258882) T PROTEIN (test code = 6.8 g/dL 6.3-8.2 9581206754) ALBUMIN (test code = 3.8 g/dL 3.5-5.0 0512770993) ALK PHOS (test code = 288 U/L 34-122 H 1686852994) ALTv (test code = 46 U/L 5-50 1742-6) AST(SGOT) (test code = 38 U/L 13-40 0850297972) eGFR Calculation mL/min/1.73m2 (Non-) (test code = 1097150246) eGFR Calculation mL/min/1.73m2 () (test code = 4826504291) JAMES (test code = JAMES) Association of [...] tests). Lab Interpretation Abnormal (test code = 22855-6) [facility] [id number] 12:23:00 Test Item Value Reference Range Interpretation Comments LACTIC ACID (test code = 2.09 mmol/L 0.50-2.20 8426936326) Lab Interpretation (test code = Normal 50092-7) [facility] WITH [id number] 12:17:00 Test Item Value Reference Range Interpretation Comments WBC (test code = See_Comment H [Automated 2190-2) message] The sy stem which generated this result transmitted reference range : 4.20 - 10.70 10*3/?L. The reference range was not used to interpret this result as normal/abnormal . RBC (test code = See_Comment [Automated 589-8) message] The sy stem which [...] RDW-SD (test code = 44.9 fL 38.5-51.6 49330-1) RDW-CV (test code = 15.9 % 12.1-15.4 H 788-0) PLT (test code = See_Comment H [Automated 777-3) message] The sy stem which generated this result transmitted reference range : 150 - 328 10*3/ ?L. The reference r torito was not used to interpret this result as normal/abnormal . MPV (test code = 8.3 fL 9.8-13.0 L 31072-2) NRBC/100 WBC (test See_Comment [Automat ed code = 6072415947) message] The system which generated this result transmitted reference range : 0.0 - 10.0 /100 WBCs. The refer ence range was not u sed to interpret th is result as normal/abnormal . NRBC x10^3 (test code <0.01 See_Comment [Auto mated = 7841346510) message] The s ystem which generated this result transmitted reference range : 10*3/?L. The reference range was not used to interpret this result as normal/abnormal . GRAN MAT (NEUT) % 77.9 % (test code = 770-8) IMM GRAN % (test code 0.50 % = 3486587334) LYMPH % (test code = 12.2 % 736-9) MONO % (test code = 5.2 % 5905-5) EOS % (test code = 3.7 % 713-8) BASO % (test code = 0.5 % 706-2) GRAN MAT x10^3(ANC) 9.57 10*3/uL 1.99-6.95 H (test code = 8691748426) IMM GRAN x10^3 (test 0.06 10*3/uL 0.00-0.06 code = 9997806351) LYMPH x10^3 (test code 1.50 10*3/uL 1.09-3.23 = 731-0) MONO x10^3 (test code 0.64 10*3/uL 0.36-1.02 = 742-7) EOS x10^3 (test code = 0.46 10*3/uL 0.06-0.53 711-2) BASO x10^3 (test code 0.06 10*3/uL 0.01-0.09 = 704-7) Lab Interpretation Abnormal (test code = 89688-3) [facility] COVID [id number] 18:43:00COVID DMT InterpretationInterpretation/Recommendations: Molecular NAAT Test Results [...] a nasopharyngeal sample, there is approximately a vrj-ex-iwhzy chance that the patient was infected and [...] based upon aggregate data pooled from the [facility] medical recordincluding both current and prior COVID-19 related testing results for the following tests offered atour institution:A. Tests for the Identification of SARS-CoV-2 RNA:SARS-CoV-2 PCR assays including [place] Aptima, [place] Fusion, Barrett RealTime, and C$ [employer]Money Xpert Xpress. SARS-CoV-2 Rapid ID NOW by the ID NOW assay. ? B. Tests for the Identification of SARS-CoV-2 Antibodies: Chemiluminescent immunoassays including Access SARS-CoV-2 IgM (DXI 600), VITROS Szuk-KYLG-MgZ-2 IgG (Vitros 5600 and Vitros 3600), and Barrett SARS-CoV-2 IgG (GEOTHERMAL SYSTEM INSTALLER I System). These interpretation comments assume that only the above testing was utilized and that the approved acceptable specimen type(s) were used for a given test. These interpretations are autopopulated into [email or web address] based on computerized algorithms matching an interpretation code number to the patient's set of test results. While a clinical pathologist evaluates the combinations for clinical accuracy, clinical correlation is recommended as it may not take into account very remote prior testing. Furthermore, it does not consider testing a patient may have had outside of the [facility] system. Additionally, it should be noted that the computerized algorithm treats the results for PCR testing and Rapid ID NOW testing (also PCR) synonymously, and thus, refers to both testing methodologies as PCR tests. Given that the sensitivity of [facility]'s Rapid ID NOW testing platform is [...] panel may be beneficialin this setting. [facility] LABORATORY SERVICESCOVID MufsmisGICE-UfE-6 Rapid ID NOW (no units) ? ? Date ? Value ? 08/21/2020 ? Not Detected ? [facility]ORATORY SERVICESUnPer[facility] (AUTOMATED)2020-08-23 18:25:00 Test Item Value Reference Range Interpretation Comments POCT GLU (test code = 7859797155) 297 mg/dL 70-110 H Lab Interpretation (test code = Abnormal 92958-4) [facility] GLUCOSE (AUTOMATED)2020-08-23 14:25:00 Test Item Value Reference Range Interpretation Comments POCT GLU (test code = 2021036327) 181 mg/dL 70-110 H Lab Interpretation (test code = Abnormal 37973-7) [facility] Metabolic Panel (NA, K, CL, CO2, GLUCOSE, BUN, CREATININE, CA)2020-08-23 11:45:00 Test Item Value Reference Range Interpretation Comments NA (test code = 132 mmol/L 135-145 L 5311046537) K (test code = 4.0 mmol/L 3.5-5 6590191224) CL (test code = 96 mmol/L 98-108 L 9048216152) CO2 TOTAL (test code = 33 mmol/L 23-31 H 9138604244) AGAP (test code = 2-16 0936555451) BUN (test code = 9 mg/dL 7-23 6620584676) GLUCOSE (test code = 176 mg/dL 70-110 H 0845509525) CREATININE (test code = 0.66 mg/dL 0.6-1.25 9965425440) CALCIUM (test code = 8.5 mg/dL 8.6-10.6 L 7123921342) eGFR Calculation mL/min/1.73m2 (Non-) (test code = 6879708980) eGFR Calculation mL/min/1.73m2 () (test code = 5226877912) JAMES (test code = JAMES) Association of [...] tests). Lab Interpretation Abnormal (test code = 14264-4) [facility] CenterMagnesium [id number] 11:45:00 Test Item Value Reference Range Interpretation Comments MAGNESIUM (test code = 6423160292) 2.0 mg/dL 1.7-2.4 Lab Interpretation (test code = Normal 80139-0) [facility] with Rqtalnlikemd7537-54-02 11:38:00 Test Item Value Reference Range Interpretation [...] RDW-SD (test code = 41.8 fL 38.5-51.6 68332-4) RDW-CV (test code = 14.3 % 12.1-15.4 788-0) PLT (test code = See_Comment H [Automated 777-3) message] The sy stem which generated this result transmitted reference range : 150 - 328 10*3/ ?L. The reference r torito was not used to interpret this result as normal/abnormal . MPV (test code = 8.0 fL 9.8-13 L 69066-3) NRBC/100 WBC (test See_Comment [Automat ed code = 7728027116) message] The system which generated this result transmitted reference range : 0.0 - 10.0 /100 WBCs. The refer ence range was not u sed to interpret th is result as normal/abnormal . NRBC x10^3 (test code <0.01 See_Comment [Auto mated = 2007588511) message] The s ystem which generated this result transmitted reference range : 10*3/?L. The reference range was not used to interpret this result as normal/abnormal . GRAN MAT (NEUT) % 61.5 % (test code = 770-8) IMM GRAN % (test code 2.00 % = 6593365139) LYMPH % (test code = 25.5 % 736-9) MONO % (test code = 6.3 % 5905-5) EOS % (test code = 3.7 % 713-8) BASO % (test code = 1.0 % 706-2) GRAN MAT x10^3(ANC) 5.29 10*3/uL 1.99-6.95 (test code = 8200417252) IMM GRAN x10^3 (test 0.17 10*3/uL 0-0.06 H code = 7123630490) LYMPH x10^3 (test code 2.19 10*3/uL 1.09-3.23 = 731-0) MONO x10^3 (test code 0.54 10*3/uL 0.36-1.02 = 742-7) EOS x10^3 (test code = 0.32 10*3/uL 0.06-0.53 711-2) BASO x10^3 (test code 0.09 10*3/uL 0.01-0.09 = 704-7) Lab Interpretation Abnormal (test code = 88110-9) [facility] GLUCOSE (AUTOMATED)2020-08-23 10:22:00 Test Item Value Reference Range Interpretation Comments POCT GLU (test code = 9059987658) 164 mg/dL 70-110 H Lab Interpretation (test code = Abnormal 93460-6) [facility] GLUCOSE (AUTOMATED)2020-08-23 05:56:00 Test Item Value Reference Range Interpretation Comments POCT GLU (test code = 4384334219) 242 mg/dL 70-110 H Lab Interpretation (test code = Abnormal 48751-7) [facility] GLUCOSE (AUTOMATED)2020-08-23 03:02:00 Test Item Value Reference Range Interpretation Comments POCT GLU (test code = 7823752779) 210 mg/dL 70-110 H Lab Interpretation (test code = Abnormal 20300-2) [facility] GLUCOSE (AUTOMATED)2020-08-22 23:40:00 Test Item Value Reference Range Interpretation Comments POCT GLU (test code = 9121116625) 267 mg/dL 70-110 H Lab Interpretation (test code = Abnormal 48928-6) [facility] GLUCOSE (AUTOMATED)2020-08-22 19:08:00 Test Item Value Reference Range Interpretation Comments POCT GLU (test code = 4412005651) 191 mg/dL 70-110 H Lab Interpretation (test code = Abnormal 63870-6) [facility] GLUCOSE (AUTOMATED)2020-08-22 13:50:00 Test Item Value Reference Range Interpretation Comments POCT GLU (test code = 2910365703) 174 mg/dL 70-110 H Lab Interpretation (test code = Abnormal 03314-3) [facility] CenterURINE [id number] 12:59:00 Test Item Value Reference Range Interpretation Comments URINE CULTURE (test No aerobic growth (< code = 630-4) 1000 CFU/mL) [facility]CBC with [id number] 11:28:00 Test Item Value Reference Range Interpretation [...] RDW-SD (test code = 42.5 fL 38.5-51.6 56232-5) RDW-CV (test code = 14.5 % 12.1-15.4 788-0) PLT (test code = See_Comment H [Automated 777-3) message] The sy stem which generated this result transmitted reference range : 150 - 328 10*3/ ?L. The reference r torito was not used to interpret this result as normal/abnormal . MPV (test code = 8.0 fL 9.8-13 L 34560-8) NRBC/100 WBC (test See_Comment [Automat ed code = 6222647852) message] The system which generated this result transmitted reference range : 0.0 - 10.0 /100 WBCs. The refer ence range was not u sed to interpret th is result as normal/abnormal . NRBC x10^3 (test code <0.01 See_Comment [Auto mated = 6180550294) message] The s ystem which generated this result transmitted reference range : 10*3/?L. The reference range was not used to interpret this result as normal/abnormal . GRAN MAT (NEUT) % 69.1 % (test code = 770-8) IMM GRAN % (test code 2.20 % = 1161340954) LYMPH % (test code = 20.9 % 736-9) MONO % (test code = 5.8 % 5905-5) EOS % (test code = 1.0 % 713-8) BASO % (test code = 1.0 % 706-2) GRAN MAT x10^3(ANC) 6.51 10*3/uL 1.99-6.95 (test code = 8060357822) IMM GRAN x10^3 (test 0.21 10*3/uL 0-0.06 H code = 0417432695) LYMPH x10^3 (test code 1.97 10*3/uL 1.09-3.23 = 731-0) MONO x10^3 (test code 0.55 10*3/uL 0.36-1.02 = 742-7) EOS x10^3 (test code = 0.09 10*3/uL 0.06-0.53 711-2) BASO x10^3 (test code 0.09 10*3/uL 0.01-0.09 = 704-7) BASO STIPPLING (test Present A code = 703-9) BANDS (test code = Increased A 5431945916) TOXIC CHANGES (test Present A code = 803-7) Lab Interpretation Abnormal (test code = 91949-6) [facility] Metabolic Panel (NA, K, CL, CO2, GLUCOSE, BUN, CREATININE, CA)2020-08-22 11:12:00 Test Item Value Reference Range Interpretation Comments NA (test code = 135 mmol/L 135-145 8466846946) K (test code = 3.6 mmol/L 3.5-5 5162633876) CL (test code = 99 mmol/L 98-108 0201052496) CO2 TOTAL (test code = 31 mmol/L 23-31 1888824825) AGAP (test code = 2-16 3293151590) BUN (test code = 9 mg/dL 7-23 8598789065) GLUCOSE (test code = 198 mg/dL 70-110 H 0941362204) CREATININE (test code = 0.72 mg/dL 0.6-1.25 6506359869) CALCIUM (test code = 8.3 mg/dL 8.6-10.6 L 0346296892) eGFR Calculation mL/min/1.73m2 (Non-) (test code = 5374505005) eGFR Calculation mL/min/1.73m2 () (test code = 2924107788) JAMES (test code = JAMES) Association of [...] tests). Lab Interpretation Abnormal (test code = 72865-5) [facility] CenterMagnesium Bhwla6338-29-03 11:12:00 Test Item Value Reference Range Interpretation Comments MAGNESIUM (test code = 0014574153) 2.0 mg/dL 1.7-2.4 Lab Interpretation (test code = Normal 98422-2) [facility] CenterLipid Panel (Total Cholesterol, Triglycerides, HDL) - [id number] 11:12:00 Test Item Value Reference Range Interpretation Comments CHOL (test code = 155 mg/dL 120-200 9188947599) HDL (test code = 42 mg/dL >40 8926627131) HDLC RATIO (test code = See_Comment [Au tomated message] 2316931228) The system [employer] generated this result transmit ronan reference range : <=5.0. The refe rence range was not u sed to interpret th is result as normal/abnormal . TRIG (test code = 186 mg/dL 30-170 H 7985466055) LDL CHOL (test code = 76 mg/dL See_Comment [Auto mated message] 29370-8) The system [employer] generated this result transmit ronan reference range : <=160. The refe rence range was not u sed to interpret th is result as normal/abnormal . VLDL (test code = 37 mg/dL 5-60 7650286669) Lab Interpretation (test Abnormal code = 55645-6) [facility] CenterHEPATIC FUNCTION PANEL (50901) (ALB,T.PRO,BILI T,BU/BC,ALT,AST,ALK PHOS)2020-08-22 11:12:00 Test Item Value Reference Range Interpretation Comments TOTAL BILI (test code = 4738038719) 0.6 mg/dL 0.1-1.1 BILI UNCON (test code = 5482479653) 0.2 mg/dL 0.1-1.1 BILI CONJ (test code = 6102620511) 0.0 mg/dL 0-0.3 T PROTEIN (test code = 5195958526) 6.0 g/dL 6.3-8.2 L ALBUMIN (test code = 7224280737) 2.8 g/dL 3.5-5 L ALK PHOS (test code = 6223302010) 222 U/L 34-122 H ALTv (test code = 1742-6) 27 U/L 5-50 AST(SGOT) (test code = 3057800220) 30 U/L 13-40 Lab Interpretation (test code = Abnormal 58657-0) [facility] GLUCOSE (AUTOMATED)2020-08-22 10:11:00 Test Item Value Reference Range Interpretation Comments POCT GLU (test code = 5476273843) 196 mg/dL 70-110 H Lab Interpretation (test code = Abnormal 98079-0) [facility] GLUCOSE (AUTOMATED)2020-08-22 07:15:00 Test Item Value Reference Range Interpretation Comments POCT GLU (test code = 4606366854) 183 mg/dL 70-110 H Lab Interpretation (test code = Abnormal 65699-7) [facility] GLUCOSE (AUTOMATED)2020-08-22 02:30:00 Test Item Value Reference Range Interpretation Comments POCT GLU (test code = 6989393062) 295 mg/dL 70-110 H Lab Interpretation (test code = Abnormal 13700-5) [facility] GLUCOSE (AUTOMATED)2020-08-21 23:46:00 Test Item Value Reference Range Interpretation Comments POCT GLU (test code = 9887052313) 258 mg/dL 70-110 H Lab Interpretation (test code = Abnormal 36823-2) [facility] CenterC-REACTIVE [id number] 18:50:00 Test Item Value Reference Range Interpretation Comments CRP (test code = 0532016468) 15.5 mg/dL <0.8 H Lab Interpretation (test code = Abnormal 04987-2) [facility]2020-08-21 18:21:00 Test Item Value Reference Range Interpretation Comments POCT GLU (test code = 1883207844) 297 mg/dL 70-110 H Lab Interpretation (test code = Abnormal 00863-5) [facility] CenterETHANOL2020-11-09 16:24:00 Test Item Value Reference Range Interpretation Comments ALCOHOL (test code = <10 mg/dL 1084347921) JAMES (test code = Toxic Greater than or JAMES) equal to 80 mg/dL. NOTE: Whole blood values are approximately 10% to 15% lower than serum and plasma. [facility] CenterGAL/CLC ONLY - URINE DRUG (IMMUNOASSAY) - 4 ER [id number] 15:36:00 Test Item Value Reference Range Interpretation Comments AMPHET (test code = Negative Negative 5585910864) Cocaine Metabolite (test Negative Negative code = 9557909536) OPIATES (test code = Presumptive Positive Negative A 0756752594) THC (test code = Negative Negative 1426273376) JAMES (test code = JAMES) Urine Drug Cutoff Ranges Amphetamine: ? 1,000 ng/mLCocaine: ? 150 ng/mLOpiates: ? 300 ng/mLCannabinoids: ?50 ng/mL The results are to be used only for medical (i.e., treatment) purposes. Unconfirmed screening results must not be used for non-medical purposes (e.g., employment testing, legal testing). Lab Interpretation (test Abnormal code = 29628-4) [facility] ONLY - SYPHILIS [id number] 15:04:00 Test Item Value Reference Range Interpretation Comments Syphilis IgG/IgM (test Non-reactive Non-reactive code = 15312-2) JAMES (test code = JAMES) Non-reactive - No serologic evidence of T. pallidum infection. Cannot exclude incubating or early syphilis. Submit a second specimen in 2-4 weeks if syphilis is clinically suspected. Equivocal - Further testing to follow. Reactive - Further testing to follow. Lab Interpretation (test Normal code = 29263-1) [facility] CenterUrinalysis2020-11-09 14:52:00 Test Item Value Reference Range Interpretation Comments APPEARANCE (test code = Clear Clear 7256472352) COLOR (test code = Yellow Yellow 5163496867) PH (test code = 4.8-8.0 4485342104) SP GRAVITY (test code = 1.003-1.030 2150258743) GLU U QUAL (test code = 500 mg/dL Normal A 6095760136) BLOOD (test code = Negative Negative 4268682196) KETONES (test code = 20 mg/dL Negative A 7620034565) PROTEIN (test code = Negative Negative 2887-8) UROBILIN (test code = Normal Normal 7394791835) BILIRUBIN (test code = Negative Negative 8407736288) NITRITE (test code = Negative Negative 7245770984) LEUK RYAN (test code = Negative Negative 9935556032) RBC/HPF (test code = <1 See_Comment [Autom ated message] 9105952324) The system [employer] generated this result transmit ronan reference range : 0 - 3 HPF. The refe rence range was not u sed to interpret th is result as normal/abnormal . WBC/HPF (test code = See_Comment [Autom ated message] 2039027882) The system [employer] generated this result transmit ronan reference range : 0 - 5 HPF. The refe rence range was not u sed to interpret th is result as normal/abnormal . BACTERIA (test code = Negative Negative 6290967602) MUCOUS (test code = Slight Negative LPF A 5690165952) Lab Interpretation (test Abnormal code = 64029-3) [facility] CenterACTIVATED PARTIAL THRMPLAS [id number] 13:45:00 Test Item Value Reference Range Interpretation Comments APTT Patient (test code = See_Comment [ Automated message] 3173-2) The system [employer] generated this result transmitted ref erence range: 26 - 36 Seconds. The re ference range was not u sed to interpret this result as normal/abnor mal. Lab Interpretation (test Normal code = 87476-1) [facility]PO[facility])2020-08-21 13:45:00 Test Item Value Reference Range Interpretation Comments POCT GLU (test code = 4029898273) 246 mg/dL 70-110 H Lab Interpretation (test code = Abnormal 98673-1) [facility] CenterHIV 1/2 AG-AB WITH [id number] 12:32:00 Test Item Value Reference Range Interpretation Comments HIV Negative Negative Semi-quantitative (test code = 19323-6) JAMES (test code = Non-reactive for HIV-1 JAMES) antigen and HIV-1/HIV-2 antibodies. ?No laboratory evidence of HIV infection. ?Repeat in 2-4 weeks if acute HIV infection is suspected. [facility] CenterCBC WITH [id number] 12:18:00 Test Item Value Reference Range Interpretation [...] RDW-SD (test code = 44.4 fL 38.5-51.6 44014-9) RDW-CV (test code = 14.5 % 12.1-15.4 788-0) PLT (test code = See_Comment H [Automated 777-3) message] The sy stem which generated this result transmitted reference range : 150 - 328 10*3/ ?L. The reference r torito was not used to interpret this result as normal/abnormal . MPV (test code = 8.5 fL 9.8-13 L 41822-2) NRBC/100 WBC (test See_Comment [Automat ed code = 9699008408) message] The system which generated this result transmitted reference range : 0.0 - 10.0 /100 WBCs. The refer ence range was not u sed to interpret th is result as normal/abnormal . NRBC x10^3 (test code <0.01 See_Comment [Auto mated = 3549192898) message] The s ystem which generated this result transmitted reference range : 10*3/?L. The reference range was not used to interpret this result as normal/abnormal . GRAN MAT (NEUT) % 90.4 % (test code = 770-8) IMM GRAN % (test code 1.30 % = 8941556476) LYMPH % (test code = 7.1 % 736-9) MONO % (test code = 0.5 % 5905-5) EOS % (test code = 0.1 % 713-8) BASO % (test code = 0.6 % 706-2) GRAN MAT x10^3(ANC) 7.74 10*3/uL 1.99-6.95 H (test code = 4695600177) IMM GRAN x10^3 (test 0.11 10*3/uL 0-0.06 H code = 9225983962) LYMPH x10^3 (test code 0.61 10*3/uL 1.09-3.23 L = 731-0) MONO x10^3 (test code 0.04 10*3/uL 0.36-1.02 L = 742-7) EOS x10^3 (test code = <0.03 0.06-0.53 L 711-2) BASO x10^3 (test code 0.05 10*3/uL 0.01-0.09 = 704-7) POLYCHROMASIA (test 2+ See_Comment [Automa ronan code = 05702-6) message] The system which generated this result transmitted reference range : 2+. The referen ce range was not u sed to interpret th is result as normal/abnormal . BANDS (test code = Increased A 1639228947) Lab Interpretation Abnormal (test code = 16428-5) [facility] CenterPROCALCITONIN2020-11-09 11:48:00 Test Item Value Reference Range Interpretation Comments Procalcitonin (test 0.36 ng/mL <0.07 H code = 3761181449) JAMES (test code = JAMES) INTERPRETATION OF [...] abscess/empyema. For further information please refer to:[email or web address] Lab Interpretation Abnormal (test code = 24467-3) [facility] CenterLAWVATE [id number] 10:53:00 Test Item Value Reference Range Interpretation Comments LDH (test code = 2714811197) 351 U/L 300-600 Lab Interpretation (test code = Normal 25869-9) [facility] CenterSEDIMENTATION [id number] 10:07:00 Test Item Value Reference Range Interpretation Comments ESR (test code = See_Comment H [Automated message] 9419814835) The system [employer] generated this result transmitted ref erence range: 0 - 10 m m/HR. The reference r torito was not used to interpret this result as normal/abnor mal. Lab Interpretation (test Abnormal code = 74512-7) [facility] CenterPO[facility]SE ([facility]ATED)2020-08-21 09:45:00 Test Item Value Reference Range Interpretation Comments POCT GLU (test code = 2092858242) 287 mg/dL 70-110 H Lab Interpretation (test code = Abnormal 16344-2) [facility] CenterGlycosylated Hemoglobin (A1C)2020-08-21 09:29:00 Test Item Value Reference Range Interpretation Comments HGB A1C (test code = 4548-4) 9.8 % 4-6 H Lab Interpretation (test code = Abnormal 75633-5) [facility] CenterCOVID-19 (ID NOW RAPID TESTING)2020-08-21 09:13:00 Test Item Value Reference Range Interpretation Comments SARS-CoV-2 Rapid ID NOW Not Detected Not Detected (test code = 77270-3) JAMES (test code = JAMES) ID NOW COVID-19 Assay is an isothermal nucleic acid amplification test intended for the qualitative detection of nucleic acid from SARS-CoV-2 viral RNA in nasopharyngeal (MINE INSPECTOR) specimens. It is used under Emergency Use [...] indicated. Lab Interpretation Normal (test code = 09272-4) [facility] CenterProthrombin Time / [id number] 08:59:00 Test Item Value Reference Range Interpretation Comments PROTIME PATIENT (test See_Comment H [Auto mated message] code = 5964-2) The system [employer] generated this result transmitted ref erence range: 10.1 - 1 2.6 Seconds. The reference range was not used to int erpret this result as normal/abnormal . INR (test code = 6301-6) Nor mal INR <1.1; Warfarin Therap eutic range 2.0 to 3. 0 or 2.5 to 3.5, dep ending upon the indica tions. Lab Interpretation (test Abnormal code = 12755-2) [facility] CenteraPTT2020-11-09 08:59:00 Test Item Value Reference Range Interpretation Comments APTT Patient (test code = See_Comment [ Automated message] 3173-2) The system [employer] generated this result transmitted ref erence range: 26 - 36 Seconds. The re ference range was not u sed to interpret this result as normal/abnor mal. Lab Interpretation (test Normal code = 13106-6) [facility] (NA, K, CL, CO2, GLUCOSE, BUN, CREATININE, CA)2020-08-21 08:52:00 Test Item Value Reference Range Interpretation Comments NA (test code = 136 mmol/L 135-145 7251198765) K (test code = 4.3 mmol/L 3.5-5 5803301181) CL (test code = 104 mmol/L 98-108 0014184156) CO2 TOTAL (test code = 24 mmol/L 23-31 6111497882) AGAP (test code = 2-16 5991703169) BUN (test code = 8 mg/dL 7-23 9219467432) GLUCOSE (test code = 308 mg/dL 70-110 H 7896386716) CREATININE (test code = 0.72 mg/dL 0.6-1.25 9053554978) CALCIUM (test code = 7.8 mg/dL 8.6-10.6 L 7085680024) eGFR Calculation mL/min/1.73m2 (Non-) (test code = 8904732760) eGFR Calculation mL/min/1.73m2 () (test code = 5034266759) JAMES (test code = JAMES) Association of [...] tests). Lab Interpretation Abnormal (test code = 21960-2) [facility]80770[facility] (ALB,T.PRO,BILI T,BU/BC,ALT,AST,ALK PHOS)2020-08-21 08:52:00 Test Item Value Reference Range Interpretation Comments TOTAL BILI (test code = 1813677585) 0.8 mg/dL 0.1-1.1 BILI UNCON (test code = 4779906804) 0.3 mg/dL 0.1-1.1 BILI CONJ (test code = 2667136794) 0.0 mg/dL 0-0.3 T PROTEIN (test code = 8139502205) 5.7 g/dL 6.3-8.2 L ALBUMIN (test code = 4115719823) 2.7 g/dL 3.5-5 L ALK PHOS (test code = 1526749912) 245 U/L 34-122 H ALTv (test code = 1742-6) 37 U/L 5-50 AST(SGOT) (test code = 8994888664) 43 U/L 13-40 H Lab Interpretation (test code = Abnormal 93157-5) [facility]
[2022-10-14] MEDS ORDERED: KETOROLAC 30 MG/ML INJ ONE (18:45)
--- NOTE | 2022-10-14 18:45 | EDPHYS ---
Physician Documentation [facility] Name: Kiel Ngo Age: 71 yrs Sex: Male : 1950 Arrival Date: 10/14/2022 Time: 18:37 Bed DIS3 Private MD: LAURIE Physician Carie Quintanilla HPI: 10/14 18:41 Is a 71-year-old male with history of atrial fibrillation, chronic back pain, chronic jmm right leg pain the presents emerged part with complaints of chronic hip pain. Patient states that he normally comes in to get an injection of pain medication. Denies any new character of pain. Historical: - Allergies: 18:41 Demerol; ss 18:41 metformin; ss 18:41 Morphine; ss - PMHx: 18:41 Atrial fibrillation; chronic back pain; Chronic right leg pain; neuropathy; ss - PSHx: 18:41 back sx; PANCREAS SX; R. Ankle SX; ss ROS: 18:41 Constitutional: Negative for fever, chills, and weight loss, Cardiovascular: Negative jmm for chest pain, palpitations, and edema, Respiratory: Negative for shortness of breath, cough, wheezing, and pleuritic chest pain. 18:41 MS/extremity: Positive for pain. 18:41 All other systems are negative. Exam: 18:41 Constitutional: This is a well developed, well nourished patient who is awake, alert, jmm and in no acute distress. Head/Face: atraumatic. Eyes: EOMI, no conjunctival erythema appreciated ENT: Moist Mucus Membranes Neck: Trachea midline, Supple Chest/axilla: Normal chest wall appearance and motion. Cardiovascular: Regular rate and rhythm. No edema appreciated Respiratory: Normal respirations, no respiratory distress appreciated Abdomen/GI: Non distended Back: Normal ROM Skin: General appearance color normal 18:41 Neuro: Awake and alert Psych: Behavior is normal, Mood is normal, Patient is cooperative and pleasant 18:41 Musculoskeletal/extremity: ROM: Painful range of motion noted to the hips bilaterally. Vital Signs: 18:38 BP 153 / 90; Pulse 101; Resp 16; Temp 98.0(TE); Pulse Ox 97% on R/A; ss MDM: 18:37 Patient medically screened. [facility] 18:43 Data reviewed: vital signs, nurses notes. Counseling: I had a detailed discussion with parris the patient and/or guardian regarding: the historical points, exam findings, and any diagnostic results supporting the discharge/admit diagnosis, the need for outpatient follow up, to return to the emergency department if symptoms worsen or persist or if there are any questions or concerns that arise at home. Administered Medications: 18:40 CANCELLED (nahh): Ketamine 10 mg IM once [facility] 18:45 Drug: Ketorolac 15 mg Route: IM; Site: right deltoid; 18:45 Follow up: Response: Medication administered at discharge. ss Disposition Summary: 10/14/22 18:43 Discharge Ordered Location: Home [facility] Condition: Stable [facility] Diagnosis - Chronic Hip Pain [facility] Followup: [facility] - With: Private Physician - When: 2 - 3 days - Reason: Recheck today's complaints, Continuance of care, Re-evaluation by your physician Discharge Instructions: - Discharge Summary Sheet [facility] - Hip Pain [facility] Forms: - Medication Reconciliation Form [facility] - Thank You Letter [facility] - Antibiotic Education [facility] - Prescription Opioid Use [facility] Addendum: 10/17/2022 22:42 STAFF ATTESTATION STATEMENT: I was immediately available onsite in the emergency s d2 department for consultation in the care of this patient. I did not see or examine this patient. Carie Quintanilla MD. Signatures: Kirby Short PA PA jmm Smirch, Shelby, DIEGO RN Carie Quintanilla MD MD sd2 Corrections: (The following items were deleted from the chart) 10/14 18:40 18:39 Ketamine 10 mg IM once ordered. parris nye
--- NOTE | 2022-10-14 18:45 | ER ---
Nurse's Notes [facility] Name: Kiel Ngo Age: 71 yrs Sex: Male : 1950 Arrival Date: 10/14/2022 Time: 18:37 Bed DIS3 Private MD: Diagnosis: Chronic Hip Pain Presentation: 10/14 18:38 Chief complaint: Patient states: chronic hip pain. Cannot get ahold of PCP because of holiday. Coronavirus screen: Client denies travel out of the [place] in the last 14 days. Ebola Screen: Patient denies exposure to infectious person. Patient denies travel to an Ebola-affected area in the 21 days before illness onset. Initial Sepsis Screen: Does the patient meet any 2 criteria? No. Patient's initial sepsis screen is negative. Does the patient have a suspected source of infection? No. Patient's initial sepsis screen is negative. Risk Assessment: Do you want to hurt yourself or someone else? Patient reports no desire to harm self or others. Onset of symptoms is unknown. 18:38 Method Of Arrival: EMS: [facility] 18:38 Acuity: JOZEF 4 ss Historical: - Allergies: 18:41 Demerol; ss 18:41 metformin; ss 18:41 Morphine; ss - PMHx: 18:41 Atrial fibrillation; chronic back pain; Chronic right leg pain; neuropathy; ss - PSHx: 18:41 back sx; PANCREAS SX; R. Ankle SX; ss Screenin:45 Abuse screen: Denies threats or abuse. Denies injuries from another. Nutritional ss screening: No deficits noted. Tuberculosis screening: Never had TB. Assessment: 18:45 Reassessment: Pt is smiling in ER hallway on [facility]. Toradol given. Pt going back home now VIA EMS. General: Appears in no apparent distress. Behavior is calm, cooperative. Derm: Skin is pink, warm \T\ dry. normal. Vital Signs: 18:38 BP 153 / 90; Pulse 101; Resp 16; Temp 98.0(TE); Pulse Ox 97% on R/A; ss ED Course: 18:37 Patient arrived in ED. 18:37 Kirby Short PA is PHCP. [facility] 18:37 Carie Quintanilla MD is Attending Physician. [facility] 18:41 Triage completed. ss 18:41 Paris Mar, RN is Primary Nurse. ss 18:41 Arm band placed on right wrist. ss 18:45 Patient has correct armband on for positive identification. ss 18:45 No provider procedures requiring assistance completed. Patient did not have IV access ss during this emergency room visit. Administered Medications: 18:40 CANCELLED (nahh): Ketamine 10 mg IM once [facility] 18:45 Drug: Ketorolac 15 mg Route: IM; Site: right deltoid; ss 18:45 Follow up: Response: Medication administered at discharge. ss Medication: 18:45 VIS not applicable for this client. Outcome: 18:43 Discharge ordered by . [facility] 18:45 Discharged to home ambulatory. 18:45 Condition: good 18:45 Discharge instructions given to patient, Instructed on discharge instructions, follow up and referral plans. Demonstrated understanding of instructions, follow-up care. 18:48 Patient left the ED. Signatures: Kirby Short PA PA Paris Bains, RN RN ss
[2022-10-14 18:54] VITALS: BP 153/90; TEMP 98; O2SAT 97
== END 2022-10-14 18:48 | disposition home or self-care (01) ==
LOC: ER 18:30
DX: G89.29 Other chronic pain (principal); Z88.5 Allergy status to narcotic agent; Z88.8 Allergy status to other drugs, medicaments and biological substances
CPT/HCPCS: 96372; 99283

== ENCOUNTER 2022-10-20 02:38 | Emergency (ER) | payer OTHER ==
--- OUTSIDE RECORDS SUMMARY | 2022-10-20 02:46 | XMS REPORT | Continuity of Care Document ---
:1950 Author Organization [facility] t Address [address] [place] [address] Care Team Providers Name Role Phone CALVIN [...] PACO LACEY Attending Clinician Unavailable Doctor Unassigned, [place] Attending Clinician Unavailable Wilder VILLAREAL, Angi K.HWong Attending Clinician Jl Mccabe MD Attending Clinician Kelly Washington MD Attending Clinician [phone] Mukul Gallardo MD Attending Clinician MUKUL GALLARDO Admitting Clinician Unavailable Harrison MD, Premal G Admitting Clinician KRUPA VIKA G Admitting Clinician Unavailable Nicci VILLAREAL, Mukul Anand Admitting Clinician Payers Payer Name Policy Type Policy Number Effective Date Expiration Date Tony doe MEDICARE PART A [id number] 2007 \\T\\ B 00:00:00 [employer] INDEMNITY [id number] 2016 00:00:00 MEDICARE PART A [id number] 2014 \\T\\ B - MEDICARE 00:00:00 INDEMNITY/TRADITIO [id number] NAL CHOICE - [employer] 00:00:00 Problems Condition [...] ents Source Name Type Date Date Clinician [facility] Active Rash 2019- Univers ty to [...] Quantity Comments Source Exposure to Not sure [place] of SARS-CoV-2 [place] [facility] (event) Branch History of Chews Tobacco University of tobacco use [place] [facility] History SDOH 2020-11-17 2020-11-17 5 University o f Financial 00:00:00 00:00:00 [place] [facility] History SDNH Food 2020-11-17 2020-11-17 1 Univers ity of Worry 00:00:00 00:00:00 [place] [facility] History SDOH Food 2020-11-17 2020-11-17 1 Univers ity of Scarcity 00:00:00 00:00:00 [place] [facility] History SDOH 2020-11-17 2020-11-17 1 University o f Transport Med 00:00:00 00:00:00 [place] Medic al Branch History SDOH 2020-11-17 2020-11-17 1 University o f Transport Non-Med 00:00:00 00:00:00 [facility] edical Branch Education 2020-11-16 2020-11-16 21 [place] of 00:00:00 00:00:00 [facility] Alcohol intake 2020-11-16 2020-11-16 Ex-drinker [facility] 00:00:00 00:00:00 (finding) [facility] Tobacco use and 2020-08-21 2020-08-21 Former user Universi ty of exposure 00:00:00 00:00:00 [facility] Tobacco Comment 2020-08-21 2020-08-21 quit 10 years Univer sity of 00:00:00 00:00:00 ago, started in [place] Med ical 2nd year of Branch college (~40 years) Alcohol Comment 2020-08-21 2020-08-21 Used to have 2-3 Uni versity of 00:00:00 00:00:00 six-packs of [place] Medica l beer daily x 20 Branch years, quit 2004 History [facility] 2020-08-21 2020-08-21 99 University o f Alcohol Frequency 00:00:00 00:00:00 [place] M edical Branch History [facility] 2020-08-21 2020-08-21 99 [place] o f Alcohol Std 00:00:00 00:00:00 [place] [facility] Drinks Branch History [facility] 2020-08-21 2020-08-21 99 [place] o f Alcohol Binge 00:00:00 00:00:00 [facility] [place] Sex Ass[birth year] At [birth year] Universit y of 00:00:00 00:00:00 [facility] Smoking Status Start Date Stop Date Source [...] ity of tablet 22:47: mouth at [place] 18 bedtime. Medical Branch HYDROmorpho 2020-0 Yes [...] ity of tablet 22:47: mouth at [place] 18 bedtime. Medical Branch HYDROmorpho 0 Yes [...] [place] 18 bedtime. Medical Branch HYDROmorpho 0 Yes [...] 0845, Until Discontinu ed, Routine amLODIPine Yes [id number] 10mg Take 1 Univers 10 mg 3-07 tablet by ity of tablet 00:00: mouth [place] 00 daily. Medical Branch clotrimazol Yes [id number] Apply to Univers e 1 % 3-07 face/ears, ity of topical 00:00: armpits, [place] cream 00 pannus and Medical back/any Branch other rash twice a day fluocinonid 0 Yes [id number] Apply to Univers e 0.05 % 3-07 scalp ity of solution 00:00: twice a [place] 00 day Medical Branch triamcinolo Yes [id number] Apply to Univers ne 3-07 back, ity of acetonide 00:00: armpits [place] 0.1 % cream 00 and other Med ical affected Branch areas twice daily, please mix with clotrimazo le hydrOXYzine Yes [id number] 10mg Take 1 Univers 10 mg 3-07 tablet by ity of tablet 00:00: mouth 2 00 (two) Medical times Branch daily. amLODIPine Yes [id number] 10mg Take 1 Univers 10 mg 3-07 tablet by ity of tablet 00:00: mouth [place] 00 daily. Medical Branch clotrimazol Yes [id number] Apply to Univers e 1 % 3-07 face/ears, ity of topical 00:00: armpits, [place] cream 00 pannus and Medical back/any Branch other rash twice a day fluocinonid Yes [id number] Apply to Univers e 0.05 % 3-07 scalp ity of solution 00:00: twice a day Medical Branch triamcinolo Yes [id number] Apply to Univers ne 3-07 back, ity of acetonide 00:00: armpits [place] 0.1 % cream 00 and other Med ical affected Branch areas twice daily, please mix with clotrimazo le hydrOXYzine Yes [id number] 10mg Take 1 Univers 10 mg 3-07 tablet by ity of tablet 00:00: mouth 2 [place] 00 (two) Medical times Branch daily. amLODIPine Yes [id number] 10mg Take 1 Univers 10 mg 3-07 tablet by ity of tablet 00:00: mouth [place] 00 daily. Medical Branch clotrimazol 0 Yes [id number] Apply to Univers e 1 % 3-07 face/ears, ity of topical 00:00: armpits, [place] cream 00 pannus and Medical back/any Branch other rash twice a day fluocinonid 2020-0 Yes [id number] Apply to Univers e 0.05 % 3-07 scalp ity of solution 00:00: twice a day Medical Branch triamcinolo 2020-0 Yes [id number] Apply to Univers ne 3-07 back, ity of acetonide 00:00: armpits [place] 0.1 % cream 00 and other Med ical affected Branch areas twice daily, please mix with clotrimazo le hydrOXYzine Yes [id number] 10mg Take 1 Univers 10 mg 3-07 tablet by ity of tablet 00:00: mouth 2 [place] (two) Medical times Branch daily. amLODIPine Yes [id number] 10mg Take 1 Univers 10 mg 3-07 tablet by ity of tablet 00:00: mouth [place] 00 daily. Medical Branch clotrimazol Yes [id number] Apply to Univers e 1 % 3-07 face/ears, ity of topical 00:00: armpits, [place] cream 00 pannus and Medical back/any Branch other rash twice a day fluocinonid Yes [id number] Apply to Univers e 0.05 % 3-07 scalp ity of solution 00:00: twice a day Medical Branch triamcinolo 0 Yes [id number] Apply to Univers ne 3-07 back, ity of acetonide 00:00: armpits [place] 0.1 % cream 00 and other Med ical affected Branch areas twice daily, please mix with clotrimazo le hydrOXYzine Yes [id number] 10mg Take 1 Univers 10 mg 3- tablet by ity of tablet 00:00: mouth 2 (two) Medical times Branch daily. cephALEXin 2020-2020- No [id number] 500mg Take 1 Univers 500 mg -04 14- capsule by ity of capsule 00:00: 05:59 mouth [place] 00 :00 every 6 Medical (six) Branch hours for 3 days. cephALEXin 2020-0 2020- No [id number] 500mg Take 1 Univers 500 mg 3-04 14- capsule by ity of capsule 00:00: 05:59 mouth [place] 00 :00 every 6 Medical (six) Branch hours for 3 days. hydrOXYzine 2020-2020- No [id number] 10mg Take 1 Univers 10 mg 3- 03-07 tablet by ity of tablet 00:00: 00:00 mouth 2 [place] 00 :00 (two) Medical times [place] daily. morpHINE Yes 4mg 4 mg, Slow Uni vers injection 4 -06 IV Push, ity of mg 22:40: Q6HPRN, [place] 02 Starting Medical 12/16/20 [place] at 1640, Until Discontinu ed, Routine, Pain [...] 00 :00 dose, Sat Medical 12/16/20 at [place] 0515, Routine lactated 2020- No 1000mL at 125 Univ ers ringers IV 12-16 03-06 mL/hr, ity of infusion 01:00: 00:16 1,000 mL, [place] 1,000 mL 00 :00 IV Medical Infusion, [place] ONCE, 1 dose, 12/15/20 at 1900, Routine iohexol 2020- No 100mL 100 mL, Unive rs (OMNIPAQUE 12-15-05 Intravenou it y of 350 22:24: 22:24 s, ONCE, 1 [place] BULK-100 00 :00 dose, Fri Medica l mL) 12/15/20 at [place] injection 1645, 100 mL Routine cephALEXin 2020- [...] NaCl 0.9% 2020- No 500mL at 999 [place] [facility] ers (NS) bolus 12-15-05 mL/hr, 500 it y of infusion 16:00: 15:26 mL, IV [place] 500 mL 00 :00 Piggyback, Medical ONCE, 1 Branch dose, Fri12/15/20 at 1000, STAT HYDROmorpho Yes 4mg 4 mg, [place] [facility] ne 05 Oral, BID, ity of (DILAUDID) 15:30: First dose [place] tablet 4 mg 00 (after Medica l last Branch modificati on) on Fri12/15/20 at 0930, Until Discontinu ed, Routine amLODIPine 2020- No [id number] 10mg Take 1 Univers 10 mg 12-1507 tablet by ity of tablet 00:00: 00:00 mouth [place] 00 :00 daily. Medical Branch HYDROmorpho 2020- No 1mg 1 mg, [place] [facility] ers ne 12-14 03-05 Oral, ity of (DILAUDID) 17:35: 15:18 Q6HPRN, [place] tablet 1 mg 30 :06 Starting Medi [facility] 12/14/20 Branch at 1135, Until Fri12/15/20 at 0918, Routine, Pain (scale 7-10) hydrOXYzine Yes 10mg 10 mg, [place] [facility] ers (ATARAX) 304 Oral, BID, ity o f tablet 10 17:30: First dose [place] mg 00 on [facility] 12/14/20 at Branch 1130, Until Discontinu ed, Routine lisinopriL 0 Yes 5mg 5 mg, Univer s (PRINIVIL,Z -04 Oral, ity of ESTRIL) 17:30: DAILY, [place] tablet 5 mg 00 First dose Me dical on [facility] Branch 12/14/20 at 1130, Until Discontinu ed, Routine triamcinolo 2020- No [id number] Apply to Univers ne 12-14 back, ity of acetonide 00:00: 00:00 armpits [place] 0.1 % cream 00 :00 and other Med ical affected Branch areas twice daily, please mix with clotrimazo le clotrimazol 2020- No [id number] Apply to Univers e 1 % 12-14 face/ears, ity of topical 00:00: 00:00 armpits, [place] cream 00 :00 pannus and Medical back/any Branch other rash twice a day fluocinonid 2020- No [id number] Apply to Univers e 0.05 % 12-14 scalp ity of solution 00:00: 00:00 twice a [place] 00 :00 day Medical Branch hydrOXYzine 2020- No [id number] 10mg Take 1 Univers 10 mg 12-14 [...] [place] mg 00 :00 dose, [facility] 12/12/20 at Branch 2145, Routine insulin Yes 15U 15 Units, [facility] rs glargine 12-12 Subcutaneo ity o f (LANTUS 15:00: us, DAILY, [place] U-100) 00 First dose Medical injection on [facility] 15 Units 12/12/20 at 0900, Until Discontinu ed hydrOXYzine 2020- No 10mg 10 mg, Uni vers (ATARAX) 12-12 03-02 Oral, ity of tablet 10 08:15: 07:33 ONCE, 1 [place] mg 00 :00 dose, [facility] 12/12/20 at Branch 0215, Routine mirtazapine Yes [...] 00 Fri12/11/20 Me dical cream at 1315, [place] Until Discontinu ed, Routine hydrocortis 0 Yes [...] ity of 1,000 mg in 19:00: 17:35 [place], [place] NaCl 0.9% 00 :26 Q8H ABX, [...] ed, Routine insulin Yes 5U 5 Units, [facility] lispro 12-11 Subcutaneo ity of (human) 18:00: us, TID [place] (HumaLOG 00 MEALS, Medical U-100) First dose Branch injection 5 on Mon Units 12/11/20 at 1200, Until Discontinu ed Polyethylen Yes 17g 17 g, [facility] rs e Glycol 12-11 Oral, ity of 3350 17:47: [id number], [place] (MIRALAX) 05 Starting Medica l [...] 0630, STAT piperacilli No 3.375g 3.375 g, [facility] n-tazobacta 12-11 IV ity of m (ZOSYN) 12:00: 17:48 [place], [place] injection 00 :24 Q6H, First Medi jose c 3.375 g dose on Branch Fri12/11/20 at 0600, Until Discontinu ed, KAHLIL
Re ason for Anti-Infec tive: Empiric Therapy for Suspected Infection< br>Empiric Therapy Site: Skin / Soft tissue
Duration of therapy: 72 hours sennosides- Yes [id number] 1{tbl} Take 1 [facility] docusate 2-09 tablet by ity of sodium 00:00: mouth 2 [place] 8.6-50 mg 00 (two) Medical per tablet times Branch daily. hydrocortis Yes [id number] Apply to [facility] one 2.5 % 11-21 affected ity of cream 00:00: area(s) 2 [place] 00 (two) Medical times Branch daily. blood sugar Yes [id number] Use to [facility] diagnostic 2 check ity of (FREESTYLE 00:00: blood [place] LITE 00 glucose Medical STRIPS) 4-5 times Branch strip daily. Polyethylen Yes [id number] 17g Take 1 Univers e Glycol 2-09 Packet by ity of 3350 17 00:00: mouth [place] gram powder 00 every 24 Medi jose c (twenty-fo Branch ur) hours as needed for Constipati on. sennosides- Yes [id number] 1{tbl} Take 1 Univers docusate 2-09 tablet by ity of sodium 00:00: mouth 2 [place] 8.6-50 mg 00 (two) Medical per tablet times Branch daily. hydrocortis Yes [id number] Apply to Univers one 2.5 % 2-09 affected ity of cream 00:00: area(s) 2 [place] 00 (two) Medical times Branch daily. blood sugar Yes [id number] Use to Univers diagnostic 11-21 check ity of (FREESTYLE 00:00: blood [place] LITE 00 glucose Medical STRIPS) 4-5 times Branch strip daily. Polyethylen Yes [id number] 17g Take 1 Univers e Glycol 2-09 Packet by ity of 3350 17 00:00: mouth [place] gram powder 00 every 24 Medi jose c (twenty-fo Branch ur) hours as needed for Constipati on. sennosides- Yes [id number] 1{tbl} Take 1 Univers docusate 2-09 tablet by ity of sodium 00:00: mouth 2 [place] 8.6-50 mg 00 (two) Medical per tablet times Branch daily. hydrocortis Yes [id number] Apply to Univers one 2.5 % 2-09 affected ity of cream 00:00: area(s) 2 [place] 00 (two) Medical times Branch daily. blood sugar Yes [id number] Use to Univers diagnostic 11-21 check ity of (FREESTYLE 00:00: blood [place] LITE 00 glucose Medical STRIPS) 4-5 times Branch strip daily. Polyethylen 2020-0 Yes [id number] 17g Take 1 Univers e Glycol 2-09 Packet by ity of 3350 17 00:00: mouth [place] gram powder 00 every 24 Medi jose c (twenty-fo Branch ur) hours as needed for Constipati on. sennosides- Yes [id number] 1{tbl} Take 1 Univers docusate 2-09 tablet by ity of sodium 00:00: mouth 2 [place] 8.6-50 mg 00 (two) Medical per tablet times Branch daily. hydrocortis Yes [id number] Apply to [facility] one 2.5 % 11-21 affected ity of cream 00:00: area(s) 2 [place] 00 (two) Medical times Branch daily. blood sugar Yes [id number] Use to [facility] diagnostic 11-21 check ity of (FREESTYLE 00:00: blood [place] LITE 00 glucose Medical STRIPS) 4-5 times Branch strip daily. Polyethylen Yes [id number] 17g Take 1 Univers e Glycol 11-21 Packet by ity of 3350 17 00:00: mouth [place] gram powder 00 every 24 Medi jose c (twenty-fo Branch ur) hours as needed for Constipati on. Insulin 2020- No [id number] 15U inject 15 Univers Glargine 11-21- Units ity of (LANTUS 00:00: 05:59 under the [employer] SOLOSTAR 00 :00 skin every Medic al U-100 morning Branch INSULIN) for 30 100 unit/mL days. (3 mL) injection venlafaxine 2020- No [id number] 150mg Take 1 Univers XR 150 mg 11-21 capsule by ity of 24 hr 00:00: 05:59 mouth 3 [place] capsule 00 :00 (three) Medical times Branch daily for 30 days. Insulin 2020- No [id number] 15U inject 15 Univers Glargine 11-21-12 Units ity of (LANTUS 00:00: 05:59 under the [employer] SOLOSTAR 00 :00 skin every Medic al U-100 morning Branch INSULIN) for 30 100 unit/mL days. (3 mL) injection venlafaxine 2020- No [id number] 150mg Take 1 Univers XR 150 mg 11-21- capsule by ity of 24 hr 00:00: 05:59 mouth 3 [place] capsule 00 :00 (three) Medical times Branch daily for 30 days. triamcinolo 2020- No [id number] Apply to [facility] ne 11-21-04 area(s) 2 ity of acetonide 00:00: 00:00 (two) [place] 0.1 % cream 00 :00 times Medical daily. Branch cephALEXin 2020- No [id number] 1000mg Take 2 Univers 500 mg 11-21 capsules ity of capsule 00:00: 00:00 by mouth 3 [place] 00 :00 (three) Medical times Branch daily. doxycycline 2020- No [id number] 100mg Take 1 Univers hyclate 100 11-21 capsule by i ty of mg capsule 00:00: 00:00 mouth [place] 00 :00 every 12 Medical (twelve) Branch hours. lactobacill 2020- No [id number] 1{tbl} Take 1 Univers us 11-21 tablet by ity of acidophilus 00:00: 00:00 mouth 2 [place] 25 million 00 :00 (two) Medical cell -100 times Branch mg captab daily. bisacodyL 2020- No [id number] 10mg Insert 1 Univers 10 mg 11-21 Suppositor ity of suppository 00:00: 00:00 y into [place] 00 :00 rectum at Medical bedtime as Branch needed for Constipati on. ALPRAZolam 2020- No [id number] .25mg Take 1 Univers (XANAX) 11-21 tablet by ity of 0.25 mg 00:00: 00:00 mouth 2 [place] tablet 00 :00 (two) Medical times Branch daily. hydrOXYzine 2020- No [id number] 20mg Take 2 Univers 10 mg 11-21 [...] ity of 6 mg 01:13: (three) [place] capsule 36 times Medical daily. Branch Insulin 2019-10 Yes 15U inject 15 Unive rs Glargine 1-12 Units ity of (LANTUS 01:13: under the [place] SOLOSTAR) 36 skin. Medical 100 unit/mL Branch (3 mL) InPn INSULIN 2019-10 Yes 5U inject 5 Univer s ASPART 1-12 Units ity of (NOVOLOG 01:13: under the [facility] FLEXPEN SC) 36 skin. Medical Branch ALPRAZolam [...] ity of 6 mg 01:13: (three) [place] capsule 36 times Medical daily. Branch Insulin 2019-10 Yes 15U inject 15 Unive rs Glargine 1-12 Units ity of (LANTUS 01:13: under the [place] SOLOSTAR) 36 skin. Medical 100 unit/mL Branch (3 mL) InPn INSULIN 2019-10 Yes 5U inject 5 Univer s ASPART 1-12 Units ity of (NOVOLOG 01:13: under the [facility] FLEXPEN [place]) 36 skin. Medical Branch ALPRAZolam [...] Units ity of (NOVOLOG 01:13: under the [facility] s FLEXPEN SC) 36 skin. Medical Branch ALPRAZolam 2019-10 Yes .25mg Take 0.25 U nivers (XANAX) 1-12 mg by ity of 0.25 mg 01:13: mouth 2 [place] tablet 36 (two) Medical times Branch daily. HYDROXYZINE 2019-10 2020- No 25mg Take 25 mg Univers PAMOATE 1-11 11-11 by mouth ity of ORAL 20:04: 00:00 daily. [place] 34 :00 Medical Branch hydrocortis 2019-10 Yes [id number] Apply to Univers one 2.5 % 1-11 affected ity of cream 00:00: area(s) 2 [place] 00 (two) Medical times Branch daily. hydrOXYzine 2019-10 Yes [id number] 20mg Take 2 Univers 10 mg 1-11 tablets by ity of tablet 00:00: mouth [place] 00 every 8 Medical (eight) Branch hours as needed for Itching or Anxiety. Polyethylen 2019-10 Yes [id number] 17g Take 1 Univers e Glycol 1-11 Packet by ity of 3350 17 00:00: mouth [place] gram powder 00 every 24 Medi jose c (twenty-fo Branch ur) hours as needed for Constipati on. hydrocortis 2019-10 Yes [id number] Apply to Univers one 2.5 % 1-11 affected ity of cream 00:00: area(s) 2 [place] 00 (two) Medical times Branch daily. hydrOXYzine 2019- Yes [id number] 20mg Take 2 Univers 10 mg 1-11 tablets by ity of tablet 00:00: mouth [place] 00 every 8 Medical (eight) Branch hours as needed for Itching or Anxiety. Polyethylen 2019- Yes [id number] 17g Take 1 Univers e Glycol 1-11 Packet by ity of 3350 17 00:00: mouth [place] gram powder 00 every 24 Medi jose c (twenty-fo Branch ur) hours as needed for Constipati on. hydrocortis 2019- Yes [id number] Apply to Univers one 2.5 % 1-11 affected ity of cream 00:00: area(s) 2 [place] (two) Medical times Branch daily. hydrOXYzine 2019-10 Yes [id number] 20mg Take 2 Univers 10 mg 1-11 tablets by ity of tablet 00:00: mouth [place] 00 every 8 Medical (eight) Branch hours as needed for Itching or Anxiety. Polyethylen 2019- Yes [id number] 17g Take 1 Univers e Glycol 1-11 Packet by ity of 3350 17 00:00: mouth [place] gram powder 00 every 24 Medi jose c (twenty-fo Branch ur) hours as needed for Constipati on. hydrocortis 2019-10 Yes [id number] Apply to Univers one 2.5 % 1-11 affected ity of cream 00:00: area(s) 2 [place] (two) Medical times Branch daily. hydrOXYzine 2019-10 Yes [id number] 20mg Take 2 Univers 10 mg 1-11 tablets by ity of tablet 00:00: mouth [place] 00 every 8 Medical (eight) Branch hours as needed for Itching or Anxiety. Polyethylen 2019-10 Yes [id number] 17g Take 1 Univers e Glycol 1-11 Packet by ity of 3350 17 00:00: mouth [place] gram powder 00 every 24 Medi jose c (twenty-fo Branch ur) hours as needed for Constipati on. hydrocortis 2019-10 Yes [id number] Apply to Univers one 2.5 % 1-11 affected ity of cream 00:00: area(s) 2 [place] 00 (two) Medical times Branch daily. hydrOXYzine 2019-10 Yes [id number] 20mg Take 2 Univers 10 mg 1-11 tablets by ity of tablet 00:00: mouth [place] 00 every 8 Medical (eight) Branch hours as needed for Itching or Anxiety. Polyethylen 2019- Yes [id number] 17g Take 1 Univers e Glycol 1-11 Packet by ity of 3350 17 00:00: mouth [place] gram powder 00 every 24 Medi jose c (twenty-fo Branch ur) hours as needed for Constipati on. hydrocortis 2019-10 Yes [id number] Apply to Univers one 2.5 % 1-11 affected ity of cream 00:00: area(s) 2 [place] 00 (two) Medical times Branch daily. hydrOXYzine 2019- Yes [id number] 20mg Take 2 Univers 10 mg 1-11 tablets by ity of tablet 00:00: mouth [place] 00 every 8 Medical (eight) Branch hours as needed for Itching or Anxiety. Polyethylen 2019- Yes [id number] 17g Take 1 Univers e Glycol 1-11 Packet by ity of 3350 17 00:00: mouth [place] gram powder 00 every 24 Medi jose c (twenty-fo Branch ur) hours as needed for Constipati on. hydrocortis 2019- Yes [id number] Apply to Univers one 2.5 % 1-11 affected ity of cream 00:00: area(s) 2 [place] 00 (two) Medical times Branch daily. hydrOXYzine 2019- Yes [id number] 20mg Take 2 Univers 10 mg 1-11 tablets by ity of tablet 00:00: mouth [place] 00 every 8 Medical (eight) Branch hours as needed for Itching or Anxiety. Polyethylen 2019- Yes [id number] 17g Take 1 Univers e Glycol 1-11 Packet by ity of 3350 17 00:00: mouth [place] gram powder 00 every 24 Medi jose c (twenty-fo Branch ur) hours as needed for Constipati on. triamcinolo 2019- 2020- No [id number] Apply to Univers ne 10-23 area(s) 2 ity of acetonide 00:00: 05:59 (two) [place] 0.1 % cream 00 :00 times Medical daily for Branch 14 days. triamcinolo 2019- 2020- No [id number] Apply to Univers ne 10-23 area(s) 2 ity of acetonide 00:00: 05:59 (two) [place] 0.1 % cream 00 :00 times Medical daily for Branch 14 days. triamcinolo 2020- 2020- No [id number] Apply to [facility] ne 10-23 area(s) 2 ity of acetonide 00:00: 05:59 (two) [place] 0.1 % cream 00 :00 times Medical daily for Branch 14 days. KCL 2019- 2020- No 40meq 40 mEq, Univers (KLOR-CON 1-10 11-10 Oral, ONCE ity of M20) tablet 16:15: 16:23 NOW, 1 [place] 40 mEq 00 :00 dose, [facility] 08/22/20 Branch at 1015, Routine HYDROmorpho 2019-10 Yes 1mg 1 mg, Unive rs ne 1-10 Oral, ity of (DILAUDID) 15:07: Q6HPRN, [place] tablet 1 mg 53 Starting [facility] 08/22/20 at 0907, Until Discontinu ed, Routine, Pain (scale 7-10) hydrocortis 2019-10 Yes Topical Uni vers one 2.5 % 1-10 (Apply To ity o f cream 02:00: Affected [place] 00 Areas), Medical BID, First Branch dose on [facility] 08/21/20 at 2000, Until Discontinu ed, Routine triamcinolo 2019-10 Yes Topical, Un toi ne 1-10 BID, First ity of acetonide 02:00: dose on [place] (TRIDERM) [facility] Medical 0.1 % cream 08/21/20 at Br anch 2000, Until Discontinu ed, Routine hydrOXYzine 2019-10 Yes 20mg 20 mg, Univ ers (ATARAX) 09 Oral, ity of tablet 20 17:39: Q8HPRN, [place] mg 12 Starting [facility] 08/21/20 at 1139, Until Discontinu ed, [...] dose [place] capsule 150 00 on [facility] Medica l mg 08/21/20 at Branch [...] 1 ity o f 09:30: 09:14 dose, [facility] 00 :00 08/21/20 at [facility] 0330, Branch Routine Polyethylen 2019-10 Yes 17g 17 g, [place] [facility] Glycol 10-21 Oral, ity of 3350 08:29: [id number], [place] (MIRALAX) 09 Starting Medica l powder 17 g [facility] 08/21/20 at 0229, Until Discontinu ed, Routine, Constipati on lanolin 2019-10 Yes Topical, Univer s alcohol-mo- 10-21 PRN, ity of w.pet-ceres 08:26: Starting [place] (EUCERIN) 30 [facility] Medical cream 08/21/20 at Branch 0226, [...] 1-3) sotalol 2019-10 2020- No Take by [facility] [place] [facility] s (BETAPACE) 10-21 mouth ity of 240 mg 07:43: 00:00 every 12 [place] tablet 30 :00 (twelve) Medical hours. Branch blood sugar Yes Use to [place] [facility] ers diagnostic 4-25 check ity of (FREESTYLE 00:00: blood [place] LITE 00 glucose Medical STRIPS) 4-5 times Branch strip daily. blood sugar Yes Use to [place] [facility] ers diagnostic 4-25 check ity of (FREESTYLE 00:00: blood [place] LITE 00 glucose Medical STRIPS) 4-5 times Branch strip daily. blood sugar Yes Use to [place] [facility] ers diagnostic 4-25 check ity of (FREESTYLE 00:00: blood [place] LITE 00 glucose Medical STRIPS) 4-5 times Branch strip daily. blood sugar Yes Use to [place] [facility] ers diagnostic 4-25 check ity [...] 2021-08-22 13:00:00 148 mm[Hg] Univer sity of [facility] Diastolic blood 2021-08-22 13:00:00 84 mm[Hg] Unive rsity of [facility] Heart rate 2021-08-22 13:00:00 103 /min [facility] Respiratory rate 2021-08-22 13:00:00 18 /min [facility] Oxygen saturation in 2021-08-22 13:00:00 95 /min University of Arterial blood by [facility] Pulse oximetry [place] Body temperature 2021-08-22 12:22:00 36.72 [place] [facility] Systolic blood 2020-12-17 18:35:00 139 mm[Hg] Univer sity of [facility] Diastolic blood 2020-12-17 18:35:00 87 mm[Hg] Unive rsity of [facility] Heart rate 2020-12-17 18:35:00 110 /min [facility] Body temperature 2020-12-17 18:35:00 37.72 [place] [facility] Respiratory rate 2020-12-17 18:35:00 18 /min [facility] O[facility] saturation in 2020-12-17 18:35:00 93 /min University of Arterial blood by [facility] Pulse oximetry Branch Body height 2020-12-12 08:21:00 180.3 cm [facility] Body weight 2020-12-12 08:21:00 103.42 kg [facility] [place] [facility] BMI 2020-12-12 08:21:00 31.80 kg/m2 [facility] [place] [facility] Systolic blood 2020-12-17 18:35:00 139 mm[Hg] Univer sity of pressure [facility] [place] [facility] Diastolic blood 2020-12-17 18:35:00 87 mm[Hg] Unive rsity of pressure [facility] [place] [facility] Heart rate 2020-12-17 18:35:00 110 /min [facility] [place] [facility] Body temperature 2020-12-17 18:35:00 37.72 [place] [facility] [place] [facility] Respiratory rate 2020-12-17 18:35:00 18 /min [facility] [place] [facility] Oxygen saturation in 2020-12-17 18:35:00 93 /min [facility] of Arterial blood by [facility] Pulse oximetry Branch Body height 2020-12-12 08:21:00 180.3 cm [facility] [place] [facility] Body weight 2020-12-12 08:21:00 103.42 kg [facility] [place] [facility] BMI 2020-12-12 08:21:00 31.80 kg/m2 [...] 93 /min [facility] Arterial blood by [facility] Pulse oximetry Branch Body weight 2020-08-21 07:20:00 104.962 kg [facility] [place] [facility] BMI 2020-08-21 07:20:00 32.27 kg/m2 [facility] [place] [facility] Systolic blood 2020-08-23 19:27:00 140 mm[Hg] Univer sity of pressure [facility] Diastolic blood 2020-08-23 19:27:00 79 mm[Hg] [facility] pressure [facility] Heart rate 2020-08-23 19:27:00 99 /min [facility] Body temperature 2020-08-23 19:27:00 36 [place] [facility] Respiratory rate 2020-08-23 19:27:00 18 /min [facility] Oxygen saturation in 2020-08-23 19:27:00 93 /min [facility] blood by [facility] Pulse oximetry [place] Body weight 2020-08-21 07:20:[address] [facility] BMI 2020-08-21 07:20:00 32.27 kg/m2 [facility] Procedures Procedure Date / Time Performing Clinician Source Performed POCT GLUCOSE (AUTOMATED) 2020-12-17 15:42:00 Favio Harrisonal G Uni [facility] BASIC METABOLIC PANEL 2020-12-17 10:45:00 Paul Bean [facility] (NA, K, CL, CO2, GLUCOSE, [facility] BUN, CREATININE, CA) CBC WITH DIFF 2020-12-17 10:45:00 Paul Bean [facility] POCT GLUCOSE (AUTOMATED) 2020-12-17 02:36:00 Harrison [facility] Uni [facility] XR TIBIA FIBULA 2 VW LEFT 2020-12-16 23:38:00 [facility] ([facility]) 2020-12-16 23:20:00 Harrison, [facility]al [facility] PO[facility] GLU[facility]SE (AUTOMATED) 2020-12-16 20:10:00 Harrison, Premal [facility] PO[facility] GLU[facility]SE (AUTOMATED) 2020-12-16 14:43:00 [facility] BASIC METABOLIC PANEL 2020-12-16 13:51:00 Paul Bean [facility] (NA, K, CL, CO2, GLUCOSE, [facility] BUN, CREATININE, CA) CBC WITH DIFF 2020-12-16 13:51:00 Paul Bean [facility] POCT GLUCOSE (AUTOMATED) 2020-12-16 04:00:00 Harrison, Premal G Uni versity of [facility] POCT GLUCOSE (AUTOMATED) 2020-12-16 00:14:00 Harrison, Premal G Uni versity [facility] CT CHEST PULMONARY 2020-12-15 22:29:38 Paul Bean [facility] ANGIOGRAM [facility] POCT GLUCOSE (AUTOMATED) 2020-12-15 19:26:00 Harrison, Premal G [facility] POCT GLUCOSE (AUTOMATED) 2020-12-15 15:13:00 Krupa, Premal G Uni [facility] HB ECG ROUTINE & RHYTHM 2020-12-15 14:25:27 Cailin Romo [facility] MAGNESIUM 2020-12-15 12:01:00 Paul Bean [facility] BASIC METABOLIC PANEL 2020-12-15 12:01:00 Paul Bean [facility] (NA, K, CL, CO2, GLUCOSE, [facility] BUN, CREATININE, CA) CBC WITH DIFF 2020-12-15 12:01:00 Paul Bean [facility] POCT GLUCOSE (AUTOMATED) 2020-12-15 03:57:00 Harrison, Premal G Uni versity of [facility] POCT GLUCOSE (AUTOMATED) 2020-12-14 23:31:00 Harrison, Premal G Uni versity of [facility] POCT GLUCOSE (AUTOMATED) 2020-12-14 19:08:00 Harrison, Premal G Uni versity of [facility] POCT GLUCOSE (AUTOMATED) 2020-12-14 15:11:00 Harrison, Premal G Uni versity of [facility] POCT GLUCOSE (AUTOMATED) 2020-12-14 02:36:00 Harrison, Premal G Uni versity of [facility] POCT GLUCOSE (AUTOMATED) 2020-12-13 23:32:00 Harrison, Premal G Uni versity of [facility] POCT GLUCOSE (AUTOMATED) 2020-12-13 18:08:00 Harrison, Premal G Uni versity of [facility] BASIC METABOLIC PANEL 2020-12-13 15:39:00 Paul Bean [facility] (NA, K, CL, CO2, GLUCOSE, [facility] BUN, CREATININE, CA) CBC WITH DIFF 2020-12-13 15:39:00 Paul Bean [facility] POCT GLUCOSE (AUTOMATED) 2020-12-13 14:06:00 Harrison, Premal G Uni versity of [facility] POCT GLUCOSE (AUTOMATED) 2020-12-13 03:07:00 Harrison, Premal G Uni versity of [facility] POCT GLUCOSE (AUTOMATED) 2020-12-12 23:52:00 Harrison, Premal G Uni versity of [facility] POCT GLUCOSE (AUTOMATED) 2020-12-12 20:28:00 Harrison, Premal G Uni versity of [facility] POCT GLUCOSE (AUTOMATED) 2020-12-12 19:14:00 Harrison, Premal G Uni versity of [facility] POCT GLUCOSE (AUTOMATED) 2020-12-12 14:33:00 Harrison, Premal G Uni versity of [facility] MAGNESIUM 2020-12-12 08:58:00 Paul Bean [facility] BASIC METABOLIC PANEL 2020-12-12 08:58:00 Paul Bean [facility] (NA, K, CL, CO2, GLUCOSE, [facility] BUN, CREATININE, CA) CBC WITH DIFF 2020-12-12 08:58:00 Paul Bean [facility] US ABDOMEN LIMITED 2020-12-12 06:32:26 Paul Bean [facility] POCT GLUCOSE (AUTOMATED) 2020-12-12 03:40:00 Harrison, Premal G Uni versity of [facility] POCT GLUCOSE (AUTOMATED) 2020-12-12 00:06:00 Harrison, Premal G Uni versity of [facility] XR HIPS 3 VW LEFT 2020-12-11 20:20:00 Paul Bean Sivakumar [facility] HB ECG ROUTINE & RHYTHM 2020-12-11 20:04:06 Demetrius [facility] STRIP [facility] VITAMIN B6, PLASMA 2020-12-11 19:17:00 [facility] POCT GLUCOSE (AUTOMATED) 2020-12-11 19:06:00 Vika Harrison [facility] CREATINE KINASE 2020-12-11 18:22:[address] [facility] VITAMIN B12, LEVEL 2020-12-11 18:22:00 Vikas [facility] FOLATE 2020-12-11 18:22:00 [facility] THYROID STIMULATING 2020-12-11 18:22:00 Demetrius [facility] HORMONE [facility] PROCALCITONIN 2020-12-11 18:22:00 Vikas [facility] VITAMIN B1 (THIAMINE), 2020-12-11 18:22:00 [facility] WHOLE BLOOD [facility] CT HEAD WO CONTRAST 2020-12-11 14:07:[address] [facility] URINALYSIS 2020-12-11 13:44:00 Singer [facility] URINE CULTURE 2020-12-11 13:44:00 Singer [facility] COVID-19 (ID NOW RAPID 2020-12-11 12:31:00 Paco Lacey [facility] TESTING) Medical Branch LAB ONLY COVID 2020-12-11 12:31:00 Singer [facility] INTERPRETATION [facility] XR CHEST 1 VW 2020-12-11 12:07:24 Singer [facility] BLOOD CULTURE SCREEN 2020-12-11 12:02:00 Paco Lacey [facility] MAGNESIUM 2020-12-11 12:02:00 Vikas [facility] FERRITIN SERUM 2020-12-11 12:02:00 Paul Bean [facility] Kaley [facility] COMP. METABOLIC PANEL 2020-12-11 12:02:00 Singer [facility] ([id number]) [facility] CBC WITH DIFF 2020-12-11 12:02:00 Singer [facility] LACTIC ACID WHOLE BLOOD 2020-12-11 12:02:00 Singer Paco [facility] BLOOD CULTURE SCREEN 2020-12-11 11:42:00 Singer Paco [facility] EMERGENCY SERVICES 2020-12-11 06:01:00 Doctor Unassigned, [facility] AGREEMENTS AND [place] [facility] [place] AUTHORIZATIONS HOSPITAL ADMISSION 2020-12-11 06:01:00 Doctor Unaowen, [facility] Name [facility] [place] HOME HEALTH - OTHER 2020-11-11 06:01:00 Doctor Tabitha [facility] Name [facility] [place] HOME HEALTH - OTHER 2020-10-30 06:01:00 Doctor Unaowen [facility] Name [facility] [place] EXTERNAL PROVIDER RECORDS 2020-09-01 06:01:00 Doctor Tabitha, [facility] Name [facility] POCT GLUCOSE (AUTOMATED) 2020-08-23 18:09:00 Kelly Washington [facility] POCT GLUCOSE (AUTOMATED) 2020-08-23 14:14:00 Kelly Washington [facility] MAGNESIUM 2020-08-23 11:18:00 [place] [facility] BASIC METABOLIC PANEL 2020-08-23 11:18:00 [place] [facility] (NA, K, CL, CO2, GLUCOSE, Medica l Branch BUN, CREATININE, CA) CBC WITH DIFF 2020-08-23 11:18:00 [place] [facility] POCT GLUCOSE (AUTOMATED) 2020-08-23 10:21:00 Kelly Washington [facility] POCT GLUCOSE (AUTOMATED) 2020-08-23 05:55:00 Kelly Washington [facility] POCT GLUCOSE (AUTOMATED) 2020-08-23 03:00:00 [facility] ([facility]OM[facility]) 2020-08-22 23:38:00 Bety Washingtonmarie Elias versity of [facility] POCT GLUCOSE (AUTOMATED) 2020-08-22 19:04:00 Bety Washington[facility]ie [facility] POCT GLUCOSE (AUTOMATED) 2020-08-22 13:49:00 Kelly Washington Jada versity [facility] MAGNESIUM 2020-08-22 10:10:00 [facility] HE[facility] FUNCTION PANEL 2020-08-22 10:10:00 Aguila [facility] ([id number]) (ALB,T.PRO,BILI Medical Branch T,BU/BC,ALT,AST,ALK PHOS) BASIC METABOLIC PANEL 2020-08-22 10:10:00 [place] [facility] (NA, K, CL, CO2, GLUCOSE, Medica l Branch BUN, CREATININE, CA) LIPID PANEL ([id number])(TOTAL 2020-08-22 10:10:00 [place], [facility] CHOLESTEROL, [facility] [place] TRIGLYCERIDES, HDL) CBC WITH DIFF 2020-08-22 10:10:00 [facility] POCT GLUCOSE (AUTOMATED) 2020-08-22 10:10:00 Bety Washingtonmarie Elias [facility] POCT GLUCOSE (AUTOMATED) 2020-08-22 07:13:00 Kelly Washington Jada versity [facility] POCT GLUCOSE (AUTOMATED) 2020-08-22 02:24:00 Bety Washingtonmarie Elias versity [facility] POCT GLUCOSE (AUTOMATED) 2020-08-21 23:40:00 Kelly Washington Jada versity of [facility] POCT GLUCOSE (AUTOMATED) 2020-08-21 18:10:00 Kelly Washington Jada versity [facility] POCT GLUCOSE (AUTOMATED) 2020-08-21 13:39:00 Kelly Washington Jada versity [facility] ETHANOL 2020-08-21 12:35:00 [facility] 2020-08-21 12:35:00 Stefania [facility] GALV ONLY - SYPHILIS 2020-08-21 12:35:00 Stefania [facility] IGG/IGM [facility] LACTATE DEHYDROGENASE 2020-08-21 10:09:00 Ramya, [facility] GALV/CLC ONLY - URINE 2020-08-21 10:09:00 Richie [facility] DRUG (IMMUNOASSAY) - 4 ER Medica l Branch PANEL URINALYSIS 2020-08-21 10:09:00 Ramya, [facility] URINE CULTURE 2020-08-21 10:09:00 Ramya, [facility] PROCALCITONIN 2020-08-21 10:09:00 Ramya, [facility] POCT GLUCOSE (AUTOMATED) 2020-08-21 09:41:00 Stefania Kelly [facility] PROTHROMBIN TIME / INR 2020-08-21 08:32:00 Ramya, [facility] ACTIVATED PARTIAL 2020-08-21 08:32:00 [place], [facility] C-REACTIVE PROTEIN 2020-08-21 08:31:00 Ramya, [facility] HEPATIC FUNCTION PANEL 2020-08-21 08:31:00 [place], [facility] ([id number]) (ALB,T.PRO,BILI Medical Branch T,BU/BC,ALT,AST,ALK PHOS) BASIC METABOLIC PANEL 2020-08-21 08:31:00 [place], [facility] (NA, K, CL, CO2, GLUCOSE, [facility] BUN, CREATININE, CA) SEDIMENTATION RATE 2020-08-21 08:31:00 Ramya, [facility] CBC WITH DIFF 2020-08-21 08:31:00 [place], [facility] GLYCOSYLATED HEMOGLOBIN 2020-08-21 08:31:00 [place], [facility] (A1C) Medical Branch HIV 1/2 AG-AB WITH REFLEX 2020-08-21 08:31:00 Kelly [place] [facility] COVID-19 (ID NOW RAPID 2020-08-21 08:20:00 [facility] TESTING) Medical Branch LAB ONLY COVID 2020-08-21 08:20:00 [place] [facility] [place] INTERPRETATION [facility] Branch Encounters Start End Encounter Admission Attending Care Care Encounter Source Date/Time Date/Time Type Type Clinicians Facility Department ID 2020-08-21 Inpatient U STEFANIA [facility] [id number] Univers 01:07:00 KELLY barndenana [facility] 2021-08-22 2021-08-22 [id number] Univers 06:21:00 08:02:00 SWEETIE cantu [facility] 2021-08-22 2021-08-22 Emergency [facility] [id number] Univers 06:21:00 08:02:00 Sweetie LOTT [id number] i ty of [place] [id number] [facility] 084 Branch 2021-08-09 2021-08-09 Outpatient JACQUELYN [facility] [id number] [facility] 10:27:03 10:27:03 ADRIANA lopez of Medicin e 2020-12-28 2020-12-28 Telephone [facility] 1.2.840.114 [id number] 00:00:00 00:00:00 Calvin H PRIMARY [id number] CARE 4.2.7.2.686 PAVILLION [id number] 220 2020-12-28 2020-12-28 Telephone [facility] 1.2.840.114 [id number] Univers 00:00:00 00:00:00 Calvni H PRIMARY [id number] it y [place] [id number] Ok dical 220 Branch 2020-12-19 2020-12-19 Transition Tuan Peters 1.2.840.114 [id number] 00:00:00 00:00:00 of Care Ruchi Braswell [id number] [place] 4.2.7.2.686 [id number] 2020-12-19 2020-12-19 Transition Tuan Peters 1.2.840.114 [id number] Univers 00:00:00 00:00:00 of Care Ruchi Braswell [id number] [place] [id number] [facility] 403 Branch 2020-12-11 2020-12-17 [facility] Paco Lacey 1.2.840.1 [id number] 05:11:00 16:00:00 Encounter Vika Harrison Monique [id number] [facility] 4.2.7.2.686 [id number] [facility] 2020-12-11 2020-12-17 [facility] Paco Lacey 1.2.840.1 [id number] [facility] 05:11:00 16:00:00 Encounter Vika Harrison Monique [id number] ity [facility] 4.2.7.[address] [place] [address] [id number] [facility] 096 Branch 2020-12-11 2020-12-17 Inpatient X [facility] [id number] Univers 05:11:00 16:00:00 pepe [facility] 2020-11-16 2020-11-16 Emergency X [facility] ERT [id number] [facility] 09:31:00 09:31:00 PACO cantu [facility] 2020-11-11 2020-11-11 Orders Doctor CUI 1.2.840.114 [id number] 00:00:00 00:00:00 Only UnassignedMONIQUE 350.1.13.10 [place] [facility] 4.2.7.2.686 [id number] [id number] 2020-11-11 2020-11-11 Orders Doctor CUI 1.2.840.114 [id number] [facility] 00:00:00 00:00:00 Only Unassigned, MONIQUE 350.1.13.10 ity of [place] [facility] 4.2.7.2.686 Jeff as [id number] [address] 2020-11-07 2020-11-07 Telephone [facility] [id number] 00:00:00 00:00:00 Angi Lott 350.1.13.10 [place] 4.2.7.2.686 Professio [id number] [address] 2020-11-07 2020-11-07 Telephone [facility] [id number] [facility] 00:00:00 00:00:00 Angi Lott 350.1.13.10 [place] Profess[place] [id number] Ok dic[address] 2020-10-30 2020-10-30 Orders Doctor BASILIA 1.2.840.114 [id number] 00:00:00 00:00:00 Only Unassigned, MONIQUE 350.1.13.10 [place] 4.2.7.2.686 [id number] [facility] 2020-10-30 2020-10-30 Orders Doctor BASILIA 1.2.840.114 [id number] [facility] 00:00:00 00:00:00 Only Unassigned, MONIQUE 350.1.13.10 ity of [place] [facility] 4.2.7.2.686 Jeff as [id number] [address] 2020-09-26 2020-09-26 Telephone Eliot [facility] 1.2.840.114 [id number] 00:00:00 00:00:00 [facility] 350.1.13.10 CLINICS 4.2.7.2.686 [id number] [facility] 2020-09-26 2020-09-26 Telephone Eliot [facility] 1.2.840.114 [id number] [facility] 00:00:00 00:00:00 [facility] 350.1.13.10 i ty of CL[place] [id number] [address] 2020-09-01 2020-09-01 Orders Doctor BASILIA 1.2.840.114 [id number] 00:00:00 00:00:00 Only Unassigned, MONIQUE 350.1.13.10 [place] [facility] 4.2.7.2.686 [id number] [id number] 2020-09-01 2020-09-01 Orders Doctor BASILIA 1.2.840.114 [id number] Univers 00:00:00 00:00:00 Only Unassigned, MONIQUE 350.1.13.10 ity of [place] [facility] 4.2.7.2.686 Jeff as [id number] [facility] 009 Branch 2020-08-25 2020-08-25 Transition Tuan Peters 1.2.840.114 [id number] 00:00:00 00:00:00 of Care Ruchi Braswell 350.1.13.10 [place] 4.2.7.2.686 [id number] 403 2020-08-25 2020-08-25 Transition Tuan Peters 1.2.840.114 [id number] Univers 00:00:00 00:00:00 of Care Ruchi Braswell 350.1.13.10 [place] [id number] [facility] 403 [place] 2020-08-21 2020-08-23 [facility] Ayleen 1.2.840.114 [id number] 01:07:00 18:35:00 Encounter Kelly Monique 350.1.13.10 [facility] 4.2.7.2.686 [id number] [facility] 2020-08-21 2020-08-23 [facility] 1. 2.840.114 [id number] [facility] 01:07:00 18:35:00 Encounter Mukul Gallardo 350.1.13. 10 ity of [facility] 4.2.7.2.686 Jeff as [phone] [address] Results Test Description Test Time Test Comments Results Result Comments Source POCT GLUCOSE (AUTOMATED) 2020-12-17 15:43:35 Test Item Value Reference Range Interpretation Comme nts POCT GLU (test code = 4092731592) 129 mg/dL 70-110 H Lab Interpretation (test code = 71608-5) Abnormal [facility] (NA, K, CL, CO2, GLUCOSE, BUN, CREATININE, CA)2020-12-17 11:45:07 Test Item Value Reference Range Interpretation Comments NA (test code = 137 mmol/L 135-145 4452314250) K (test code = 3.5 mmol/L 3.5-5.0 3079259431) CL (test code = 103 mmol/L 98-108 4007350919) CO2 TOTAL (test code = 26 mmol/L 23-31 3482778433) AGAP (test code = 2-16 1914821823) BUN (test code = 11 mg/dL 7-23 2695026198) GLUCOSE (test code = 175 mg/dL 70-110 H 0058891769) CREATININE (test code = 0.62 mg/dL 0.60-1.25 9131052737) CALCIUM (test code = 9.0 mg/dL 8.6-10.6 6431261974) eGFR Calculation mL/min/1.73m2 (Non-) (test code = 6735719661) eGFR Calculation mL/min/1.73m2 () (test code = 9711393715) JAMES (test code = JAMES) Association of [...] tests). Lab Interpretation Abnormal (test code = 84857-8) [facility] WITH [id number] 11:07:27 Test Item Value Reference Range Interpretation [...] RDW-SD (test code = 45.2 fL 38.5-51.6 22912-2) RDW-CV (test code = 16.9 % 12.1-15.4 H 788-0) PLT (test code = See_Comment H [Automated 777-3) message] The sy stem which generated this result transmitted reference range : 150 - 328 10*3/ ?L. The reference r torito was not used to interpret this result as normal/abnormal . MPV (test code = 8.1 fL 9.8-13.0 L 84614-5) NRBC/100 WBC (test See_Comment [Automat ed code = 4427502830) message] The system which generated this result transmitted reference range : 0.0 - 10.0 /100 WBCs. The refer ence range was not u sed to interpret th is result as normal/abnormal . NRBC x10^3 (test code <0.01 See_Comment [Auto mated = 8878955056) message] The s ystem which generated this result transmitted reference range : 10*3/?L. The reference range was not used to interpret this result as normal/abnormal . GRAN MAT (NEUT) % 72.8 % (test code = 770-8) IMM GRAN % (test code 0.60 % = 5585383540) LYMPH % (test code = 18.4 % 736-9) MONO % (test code = 5.7 % 5905-5) EOS % (test code = 1.8 % 713-8) BASO % (test code = 0.7 % 706-2) GRAN MAT x10^3(ANC) 8.23 10*3/uL 1.99-6.95 H (test code = 6970621566) IMM GRAN x10^3 (test 0.07 10*3/uL 0.00-0.06 H code = 3905997768) LYMPH x10^3 (test code 2.08 10*3/uL 1.09-3.23 = 731-0) MONO x10^3 (test code 0.65 10*3/uL 0.36-1.02 = 742-7) EOS x10^3 (test code = 0.20 10*3/uL 0.06-0.53 711-2) BASO x10^3 (test code 0.08 10*3/uL 0.01-0.09 = 704-7) Lab Interpretation Abnormal (test code = 86976-9) [facility]2020-12-17 06:03:38 Test Item Value Reference Range Interpretation Comments POCT GLU (test code = 0119970404) 75 mg/dL 70-110 Lab Interpretation (test code = Normal 70099-5) [facility]6, [id number] 00:01:00 Test Item Value Reference Range Interpretation Comments VIT B6 (test code = 13.1 nmol/L 20.0-125.0 L INTERPRE TIVE 67056-3) INFORMATION: Vi tamin B6 (Pyridoxal 5-Phosphate) Pyridoxal [...] intended for cl inical purposes.Perfor med By: KuponGid[address] [place] [address] [id number] Director: Namrata Klein MD Lab Interpretation Abnormal (test code = 26437-6) [facility] TIBIA FIBULA 2 VW [id number] 23:57:09 Tricompartmental knee joint osteoarthrosis.XR TIBIA FIBULA [...] No acute fracture or dislocation.IMPRESSIONTricompartmental knee joint osteoarthrosis.[facility] GLUCOSE (AUTOMATED) 2020-12-16 23:27:00 Test Item Value Reference Range Interpretation Comments POCT GLU (test code = 1232949467) 114 mg/dL 70-110 H Lab Interpretation (test code = Abnormal 08320-7) [facility] GLUCOSE (AUTOMATED)2020-12-16 20:12:00 Test Item Value Reference Range Interpretation Comments POCT GLU (test code = 6222927220) 105 mg/dL 70-110 Lab Interpretation (test code = Normal 08954-0) [facility] GLUCOSE (AUTOMATED)2020-12-16 14:44:00 Test Item Value Reference Range Interpretation Comments POCT GLU (test code = 0397617287) 153 mg/dL 70-110 H Lab Interpretation (test code = Abnormal 99355-0) [facility] METABOLIC PANEL (NA, K, CL, CO2, GLUCOSE, BUN, CREATININE, CA)2020-12-16 14:23:00 Test Item Value Reference Range Interpretation Comments NA (test code = 138 mmol/L 135-145 1353895589) K (test code = 3.4 mmol/L 3.5-5.0 L 8778684391) CL (test code = 100 mmol/L 98-108 5656969142) CO2 TOTAL (test code = 31 mmol/L 23-31 7456197909) AGAP (test code = 2-16 6495029146) BUN (test code = 11 mg/dL 7-23 7978586966) GLUCOSE (test code = 162 mg/dL 70-110 H 0390689250) CREATININE (test code = 0.64 mg/dL 0.60-1.25 2232735550) CALCIUM (test code = 8.9 mg/dL 8.6-10.6 0664020467) eGFR Calculation mL/min/1.73m2 (Non-) (test code = 5736877964) eGFR Calculation mL/min/1.73m2 () (test code = 5826707019) JAMES (test code = JAMES) Association of [...] tests). Lab Interpretation Abnormal (test code = 55125-5) [facility] WITH [id number] 14:05:00 Test Item Value Reference Range Interpretation [...] RDW-SD (test code = 45.4 fL 38.5-51.6 79893-5) RDW-CV (test code = 17.0 % 12.1-15.4 H 788-0) PLT (test code = See_Comment H [Automated 777-3) message] The sy stem which generated this result transmitted reference range : 150 - 328 10*3/ ?L. The reference r torito was not used to interpret this result as normal/abnormal . MPV (test code = 8.0 fL 9.8-13.0 L 40788-7) NRBC/100 WBC (test See_Comment [Automat ed code = 0669543914) message] The system which generated this result transmitted reference range : 0.0 - 10.0 /100 WBCs. The refer ence range was not u sed to interpret th is result as normal/abnormal . NRBC x10^3 (test code <0.01 See_Comment [Auto mated = 0400643536) message] The s ystem which generated this result transmitted reference range : 10*3/?L. The reference range was not used to interpret this result as normal/abnormal . GRAN MAT (NEUT) % 70.0 % (test code = 770-8) IMM GRAN % (test code 0.70 % = 0667915302) LYMPH % (test code = 20.5 % 736-9) MONO % (test code = 7.1 % 5905-5) EOS % (test code = 1.0 % 713-8) BASO % (test code = 0.7 % 706-2) GRAN MAT x10^3(ANC) 9.44 10*3/uL 1.99-6.95 H (test code = 9703153146) IMM GRAN x10^3 (test 0.09 10*3/uL 0.00-0.06 H code = 5516736204) LYMPH x10^3 (test code 2.76 10*3/uL 1.09-3.23 = 731-0) MONO x10^3 (test code 0.96 10*3/uL 0.36-1.02 = 742-7) EOS x10^3 (test code = 0.13 10*3/uL 0.06-0.53 711-2) BASO x10^3 (test code 0.10 10*3/uL 0.01-0.09 H = 704-7) Lab Interpretation Abnormal (test code = 22357-2) [facility] # [id number] 13:01:00 Test Item Value Reference Range Interpretation Comments Blood Culture-Aerobic No organisms No growth Previo us (test code = 82495-2) isolated prelim inary verified result was Culture In Progress on 12/11/2020 at 100 1 CSTPrevious preliminary verified result was No growth a t 24 hours on 12/12/2020 at 070 1 CSTPrevious preliminary verified result was No growth a t 48 hours on 12/13/2020 at 070 1 CSTPrevious preliminary verified result was No growth a t 72 hours on 12/14/2020 at 070 1 [employer] Blood No organisms No growth Previous Culture-Anaerobic isolated preliminar y (test code = 49732-3) verifi ed result was Culture In Progress on 12/11/2020 at 100 1 CSTPrevious preliminary verified result was No growth a t 24 hours on 12/12/2020 at 070 1 CSTPrevious preliminary verified result was No growth a t 48 hours on 12/13/2020 at 070 1 CSTPrevious preliminary verified result was No growth a t 72 hours on 12/14/2020 at 070 1 [employer] Lab Interpretation Normal (test code = 15805-0) [facility] Culture - Peripheral # [id number] 13:01:00 Test Item Value Reference Range Interpretation Comments Blood Culture-Aerobic No organisms No growth Previo us (test code = 96143-5) isolated prelim inary verified result was Culture In Progress on 12/11/2020 at 100 1 CSTPrevious preliminary verified result was No growth a t 24 hours on 12/12/2020 at 070 1 CSTPrevious preliminary verified result was No growth a t 48 hours on 12/13/2020 at 070 1 CSTPrevious preliminary verified result was No growth a t 72 hours on 12/14/2020 at 070 1 [employer] Blood No organisms No growth Previous Culture-Anaerobic isolated preliminar y (test code = 53547-8) verifi ed result was Culture In Progress on 12/11/2020 at 100 1 CSTPrevious preliminary verified result was No growth a t 24 hours on 12/12/2020 at 070 1 CSTPrevious preliminary verified result was No growth a t 48 hours on 12/13/2020 at 070 1 CSTPrevious preliminary verified result was No growth a t 72 hours on 12/14/2020 at 070 1 [employer] Lab Interpretation Normal (test code = 08748-2) [facility] GLUCOSE (AUTOMATED)2020-12-16 04:01:00 Test Item Value Reference Range Interpretation Comments POCT GLU (test code = 1383195712) 156 mg/dL 70-110 H Lab Interpretation (test code = Abnormal 28666-5) [facility]2020-12-16 00:24:00 Test Item Value Reference Range Interpretation Comments POCT GLU (test code = 2890604996) 115 mg/dL 70-110 H Lab Interpretation (test code = Abnormal 05301-4) [facility] CHEST PULMONARY [id number] 23:34:55No pulmonary emboli. No interval change in [...] stableappearance of intra and extrahepatic biliary ductal dilatation.[facility] GLUCOSE (AUTOMATED)2020-12-15 19:28:00 Test Item Value Reference Range Interpretation Comments POCT GLU (test code = 2447381574) 140 mg/dL 70-110 H Lab Interpretation (test code = Abnormal 30029-1) [facility] 15:26:00 Test Item Value Reference Range Interpretation Comments MAGNESIUM (test code = 6374922543) 2.2 mg/dL 1.7-2.4 Lab Interpretation (test code = Normal 47633-1) [facility] GLUCOSE (AUTOMATED)2020-12-15 15:15:00 Test Item Value Reference Range Interpretation Comments POCT GLU (test code = 3815799312) 181 mg/dL 70-110 H Lab Interpretation (test code = Abnormal 23198-7) [facility] METABOLIC PANEL (NA, K, CL, CO2, GLUCOSE, BUN, CREATININE, CA)2020-12-15 13:07:00 Test Item Value Reference Range Interpretation Comments NA (test code = 136 mmol/L 135-145 0354126667) K (test code = 3.6 mmol/L 3.5-5.0 0661435549) CL (test code = 96 mmol/L 98-108 L 2648706374) CO2 TOTAL (test code = 29 mmol/L 23-31 3190105816) AGAP (test code = 2-16 4494569252) BUN (test code = 12 mg/dL 7-23 8470677702) GLUCOSE (test code = 183 mg/dL 70-110 H 1519112849) CREATININE (test code = 0.70 mg/dL 0.60-1.25 8538154486) CALCIUM (test code = 9.2 mg/dL 8.6-10.6 5103164674) eGFR Calculation mL/min/1.73m2 (Non-) (test code = 2825606525) eGFR Calculation mL/min/1.73m2 () (test code = 6278745594) JAMES (test code = JAMES) Association of [...] tests). Lab Interpretation Abnormal (test code = 55446-8) [facility] WITH [id number] 12:32:00 Test Item Value Reference Range Interpretation Comments WBC (test code = See_Comment H [Automated 9890-2) message] The system which generated this result transmit ronan reference range : 4.20 - 10.70 10*3/?L. The reference range was not used to interpret this result as normal/abnormal . RBC (test code = See_Comment H [Automated 679-8) message] The system which generated this result [...] RDW-SD (test code = 44.4 fL 38.5-51.6 84399-2) RDW-CV (test code = 17.7 % 12.1-15.4 H 788-0) PLT (test code = See_Comment H [Automated 777-3) message] The system which generated this result transmit ronan reference range : 150 - 328 10*3/ ?L. The reference range was not u sed to interpret th is result as normal/abnormal . MPV (test code = 8.1 fL 9.8-13.0 L 14510-7) NRBC/100 WBC (test See_Comment [Automat ed code = 3535418005) message] The system which generated this result transmit ronan reference range : 0.0 - 10.0 /100 WBCs. The reference range was not used to interpret this result as normal/abnormal . NRBC x10^3 (test code <0.01 See_Comment [Auto mated = 3778223627) message] The system which generated this result transmit ronan reference range : 10*3/?L. The reference range was not used to interpret this result as normal/abnormal . GRAN MAT (NEUT) % 74.5 % (test code = 770-8) IMM GRAN % (test code 0.70 % = 2426740900) LYMPH % (test code = 17.4 % 736-9) MONO % (test code = 6.8 % 5905-5) EOS % (test code = 0.2 % 713-8) BASO % (test code = 0.4 % 706-2) GRAN MAT x10^3(ANC) 11.99 10*3/uL 1.99-6.95 H (test code = 2946544447) IMM GRAN x10^3 (test 0.11 10*3/uL 0.00-0.06 H code = 5250618251) LYMPH x10^3 (test code 2.80 10*3/uL 1.09-3.23 = 731-0) MONO x10^3 (test code 1.10 10*3/uL 0.36-1.02 H = 742-7) EOS x10^3 (test code = 0.03 10*3/uL 0.06-0.53 L 711-2) BASO x10^3 (test code 0.06 10*3/uL 0.01-0.09 = 704-7) Lab Interpretation Abnormal (test code = 30565-7) [facility] GLUCOSE (AUTOMATED)2020-12-15 04:16:00 Test Item Value Reference Range Interpretation Comments POCT GLU (test code = 0894847084) 200 mg/dL 70-110 H Lab Interpretation (test code = Abnormal 14187-0) [facility] (THIAMINE), WHOLE [id number] 00:30:00 Test Item Value Reference Range Interpretation Comments Vitamin B1, Whole 136 nmol/L 70-180 INTERPRETI VE INFORMATION: Blood (test code = Vitamin B 1, Whole Blood 83064-4) This assay júnior ures the concentration o [...] clinical purposes.Perfor med By: [facility] [address] [place], [place] [address]U aboratory Director: Namrata Klein MD [facility] GLUCOSE (AUTOMATED)2020-12-14 23:35:00 Test Item Value Reference Range Interpretation Comments POCT GLU (test code = 2208771401) 151 mg/dL 70-110 H Lab Interpretation (test code = Abnormal 94493-7) [facility] GLUCOSE (AUTOMATED)2020-12-14 19:19:00 Test Item Value Reference Range Interpretation Comments POCT GLU (test code = 1259015913) 193 mg/dL 70-110 H Lab Interpretation (test code = Abnormal 35750-8) [facility] GLUCOSE (AUTOMATED)2020-12-14 15:22:00 Test Item Value Reference Range Interpretation Comments POCT GLU (test code = 0144483920) 221 mg/dL 70-110 H Lab Interpretation (test code = Abnormal 26202-4) [facility] GLUCOSE (AUTOMATED)2020-12-14 02:37:00 Test Item Value Reference Range Interpretation Comments POCT GLU (test code = 4418758335) 210 mg/dL 70-110 H Lab Interpretation (test code = Abnormal 57903-9) [facility] GLUCOSE (AUTOMATED)2020-12-13 23:33:00 Test Item Value Reference Range Interpretation Comments POCT GLU (test code = 8391293973) 182 mg/dL 70-110 H Lab Interpretation (test code = Abnormal 33321-7) [facility] GLUCOSE (AUTOMATED)2020-12-13 18:09:00 Test Item Value Reference Range Interpretation Comments POCT GLU (test code = 5423861358) 150 mg/dL 70-110 H Lab Interpretation (test code = Abnormal 54856-2) [facility] METABOLIC PANEL (NA, K, CL, CO2, GLUCOSE, BUN, CREATININE, CA)2020-12-13 16:27:00 Test Item Value Reference Range Interpretation Comments NA (test code = 136 mmol/L 135-145 4121034043) K (test code = 3.7 mmol/L 3.5-5.0 2255774944) CL (test code = 96 mmol/L 98-108 L 6657265940) CO2 TOTAL (test code = 29 mmol/L 23-31 3804973133) AGAP (test code = 2-16 7600535767) BUN (test code = 6 mg/dL 7-23 L 9279535749) GLUCOSE (test code = 212 mg/dL 70-110 H 0083563993) CREATININE (test code = 0.61 mg/dL 0.60-1.25 2725726809) CALCIUM (test code = 9.5 mg/dL 8.6-10.6 2130222551) eGFR Calculation mL/min/1.73m2 (Non-) (test code = 2787646398) eGFR Calculation mL/min/1.73m2 () (test code = 2113803529) JAMES (test code = JAMES) Association of [...] tests). Lab Interpretation Abnormal (test code = 67724-2) [facility] WITH [id number] 16:10:00 Test Item Value Reference Range Interpretation Comments WBC (test code = See_Comment H [Automated 7990-2) message] The sy stem which generated this result transmitted reference range : 4.20 - 10.70 10*3/?L. The reference range was not used to interpret this result as normal/abnormal . RBC (test code = See_Comment H [Automated 929-8) message] The sy stem which generated this [...] RDW-SD (test code = 43.3 fL 38.5-51.6 42892-8) RDW-CV (test code = 16.2 % 12.1-15.4 H 788-0) PLT (test code = See_Comment H [Automated 777-3) message] The sy stem which generated this result transmitted reference range : 150 - 328 10*3/ ?L. The reference r torito was not used to interpret this result as normal/abnormal . MPV (test code = 8.2 fL 9.8-13.0 L 52307-0) NRBC/100 WBC (test See_Comment [Automat ed code = 6679361308) message] The system which generated this result transmitted reference range : 0.0 - 10.0 /100 WBCs. The refer ence range was not u sed to interpret th is result as normal/abnormal . NRBC x10^3 (test code <0.01 See_Comment [Auto mated = 7053187463) message] The s ystem which generated this result transmitted reference range : 10*3/?L. The reference range was not used to interpret this result as normal/abnormal . GRAN MAT (NEUT) % 86.2 % (test code = 770-8) IMM GRAN % (test code 0.70 % = 2312821904) LYMPH % (test code = 10.2 % 736-9) MONO % (test code = 2.5 % 5905-5) EOS % (test code = 0.1 % 713-8) BASO % (test code = 0.3 % 706-2) GRAN MAT x10^3(ANC) 9.61 10*3/uL 1.99-6.95 H (test code = 5901586137) IMM GRAN x10^3 (test 0.08 10*3/uL 0.00-0.06 H code = 5016685854) LYMPH x10^3 (test code 1.14 10*3/uL 1.09-3.23 = 731-0) MONO x10^3 (test code 0.28 10*3/uL 0.36-1.02 L = 742-7) EOS x10^3 (test code = <0.03 0.06-0.53 L 711-2) BASO x10^3 (test code 0.03 10*3/uL 0.01-0.09 = 704-7) Lab Interpretation Abnormal (test code = 94348-7) [facility]2020-12-13 14:16:00 Test Item Value Reference Range Interpretation Comments POCT GLU (test code = 9920890400) 236 mg/dL 70-110 H Lab Interpretation (test code = Abnormal 97356-0) [facility] COVID [id number] 04:58:00COVID DMT InterpretationInterpretation/Recommendations: Molecular NAAT Tests for [...] COVID-19 testing the patient has had at [facility], including molecular NAAT testing (more commonly known as PCR testing and Rapid ID Now testing) and antibody testing. It does not take into account any testingthat a patient has had outside of the [facility] medical record. [facility] LABORATORY SERVICESCOVID FzcvkzbDRUM-WkG-0 Rapid ID NOW (no units) ? ? Date ? Value ? 12/11/2020 ? Not Detected ? ? ? 11/16/2020 ? Not Detected ? ? ? 08/21/2020 ? Not Detected ? [facility] 2020-12-13 03:11:00 Test Item Value Reference Range Interpretation Comments POCT GLU (test code = 3348845743) 171 mg/dL 70-110 H Lab Interpretation (test code = Abnormal 64790-5) [facility] GLUCOSE (AUTOMATED)2020-12-13 00:00:00 Test Item Value Reference Range Interpretation Comments POCT GLU (test code = 5171912561) 118 mg/dL 70-110 H Lab Interpretation (test code = Abnormal 67724-0) [facility] GLUCOSE (AUTOMATED)2020-12-12 20:29:00 Test Item Value Reference Range Interpretation Comments POCT GLU (test code = 6583809500) 173 mg/dL 70-110 H Lab Interpretation (test code = Abnormal 13232-2) [facility] Hospital[facility] ABDOMEN [id number] 19:56:17 1. ?Hepatic steatosis. However, limited evaluation [...] main portal veinwasevaluated with color Doppler imaging. Tufting Machine Operator Single Needle images were obtainedfor the record. COMPARISON: Ultrasound [...] portal vein wasevaluated with color Doppler imaging. Tufting Machine Operator Single Needle images wereobtainedfor the record.COMPARISON: Ultrasound abdomen 11/17/2028. [...] this study and agree with the abovereport.[facility]2020-12-12 19:24:00 Test Item Value Reference Range Interpretation Comments POCT GLU (test code = 8702103382) 230 mg/dL 70-110 H Lab Interpretation (test code = Abnormal 70658-0) [facility] CHEST 1 [id number] 15:16:46 Low lung volumes with mild perihilar [...] this study and agree with theabove report.[facility]2020-12-12 14:34:00 Test Item Value Reference Range Interpretation Comments POCT GLU (test code = 5668802068) 225 mg/dL 70-110 H Lab Interpretation (test code = Abnormal 25651-9) [facility] HospitalURINE [id number] 13:28:00 Test Item Value Reference Range Interpretation Comments URINE CULTURE (test < 10,000 CFU/mL mixed code = 630-4) aerobic organisms - suggests endogenous microbial contamination [facility] (NA, K, CL, CO2, GLUCOSE, BUN, CREATININE, CA)2020-12-12 10:05:00 Test Item Value Reference Range Interpretation Comments NA (test code = 136 mmol/L 135-145 2177684939) K (test code = 3.5 mmol/L 3.5-5.0 6067966214) CL (test code = 100 mmol/L 98-108 0126145535) CO2 TOTAL (test code = 31 mmol/L 23-31 1765980845) AGAP (test code = 2-16 8323933914) BUN (test code = 7 mg/dL 7-23 4598631353) GLUCOSE (test code = 259 mg/dL 70-110 H 1771402690) CREATININE (test code = 0.63 mg/dL 0.60-1.25 4373271286) CALCIUM (test code = 8.5 mg/dL 8.6-10.6 L 0371293650) eGFR Calculation mL/min/1.73m2 (Non-) (test code = 4702364689) eGFR Calculation mL/min/1.73m2 () (test code = 9621434420) JAMES (test code = JAMES) Association of [...] tests). Lab Interpretation Abnormal (test code = 19678-5) [facility] HospitalMagnesium Hsybq1976-17-03 10:05:00 Test Item Value Reference Range Interpretation Comments MAGNESIUM (test code = 4163780504) 1.9 mg/dL 1.7-2.4 Lab Interpretation (test code = Normal 59217-9) [facility] with [id number] 09:48:00 Test Item Value Reference Range Interpretation Comments WBC (test code = See_Comment [Automated 3550-2) message] The sy stem which generated this result transmitted reference range : 4.20 - 10.70 10*3/?L. The reference range was not used to interpret this result as normal/abnormal . RBC (test code = See_Comment [Automated 900-9) message] The sy stem which generated this [...] RDW-SD (test code = 46.0 fL 38.5-51.6 35896-8) RDW-CV (test code = 16.1 % 12.1-15.4 H 788-0) PLT (test code = See_Comment H [Automated 777-3) message] The sy stem which generated this result transmitted reference range : 150 - 328 10*3/ ?L. The reference r torito was not used to interpret this result as normal/abnormal . MPV (test code = 8.6 fL 9.8-13.0 L 35755-6) NRBC/100 WBC (test See_Comment [Automat ed code = 8209021686) message] The system which generated this result transmitted reference range : 0.0 - 10.0 /100 WBCs. The refer ence range was not u sed to interpret th is result as normal/abnormal . NRBC x10^3 (test code <0.01 See_Comment [Auto mated = 8034716456) message] The s ystem which generated this result transmitted reference range : 10*3/?L. The reference range was not used to interpret this result as normal/abnormal . GRAN MAT (NEUT) % 70.2 % (test code = 770-8) IMM GRAN % (test code 0.30 % = 9499964592) LYMPH % (test code = 18.8 % 736-9) MONO % (test code = 5.0 % 5905-5) EOS % (test code = 5.2 % 713-8) BASO % (test code = 0.5 % 706-2) GRAN MAT x10^3(ANC) 6.05 10*3/uL 1.99-6.95 (test code = 9007137600) IMM GRAN x10^3 (test 0.03 10*3/uL 0.00-0.06 code = 8954639353) LYMPH x10^3 (test code 1.62 10*3/uL 1.09-3.23 = 731-0) MONO x10^3 (test code 0.43 10*3/uL 0.36-1.02 = 742-7) EOS x10^3 (test code = 0.45 10*3/uL 0.06-0.53 711-2) BASO x10^3 (test code 0.04 10*3/uL 0.01-0.09 = 704-7) Lab Interpretation Abnormal (test code = 28881-0) [facility])2020-12-12 03:42:00 Test Item Value Reference Range Interpretation Comments POCT GLU (test code = 196 mg/dL 70-110 H Notifi ed Provider 6910527210) Lab Interpretation (test Abnormal code = 04484-6) [facility] HospitalFOLATE2021-[facility] 02:24:00 Test Item Value Reference Range Interpretation Comments FOLATE SER (test code = 1105914836) 5.8 ng/mL 3.0-20.0 Lab Interpretation (test code = Normal 28722-2) [facility] HospitalVITAMIN B12, [id number] 00:55:00 Test Item Value Reference Range Interpretation Comments VIT B12 (test code = 844 pg/mL 240-930 1942372708) JAMES (test code = JAMES) Biotin has been reported to cause a positive bias, interpret results relative to patient's use of biotin. Lab Interpretation (test Normal code = 78599-6) [facility] GLUCOSE (AUTOMATED)2020-12-12 00:14:00 Test Item Value Reference Range Interpretation Comments POCT GLU (test code = 7415834342) 164 mg/dL 70-110 H Lab Interpretation (test code = Abnormal 39964-2) [facility] HospitalCREATINE [id number] 23:42:00 Test Item Value Reference Range Interpretation Comments CK (test code = 7559539418) <20 33-194 L Lab Interpretation (test code = Abnormal 36756-2) [facility] HospitalTHYROID STIMULATING [id number] 23:17:00 Test Item Value Reference Range Interpretation Comments TSH (test code = See_Comment Biotin has been 3152209939) reported to cau se a negative bias, interpret resul ts relative to johnny bills's use of biotin. [Automated mess age] The system [employer] generated this result transmitted ref erence range: 0.45 - 4 .70 mIU/L. The refe rence range was not u sed to interpret this result as normal/abnor mal. Lab Interpretation (test Normal code = 35254-0) [facility] HospitalXR HIPS 3 VW [id number] 21:41:53No appreciable fracture lines. RL: 6200 ICAL [...] No osseous erosions.IMPRESSIONNo appreciable fracture lines.RL: 6200 [facility]PROCAL[facility]IN[facility] 20:00:00 Test Item Value Reference Range Interpretation Comments Procalcitonin (test 0.13 ng/mL <0.07 H code = 9973738324) JAMES (test code = JAMES) INTERPRETATION OF [...] lung abscess/empyema. For further information please refer to:[email or web address] Lab Interpretation Abnormal (test code = 14173-0) [facility]2020-12-11 19:07:00 Test Item Value Reference Range Interpretation Comments POCT GLU (test code = 2942244113) 274 mg/dL 70-110 H Lab Interpretation (test code = Abnormal 85745-6) [facility] HospitalMAGNESIUM2021-03-01 18:31:00 Test Item Value Reference Range Interpretation Comments MAGNESIUM (test code = 3560818133) 1.9 mg/dL 1.7-2.4 Lab Interpretation (test code = Normal 30561-0) [facility] HospitalFERRITIN [id number] 18:31:00 Test Item Value Reference Range Interpretation Comments FERRITIN (test code = 178.0 ng/mL 18.0-464.0 2417726957) JAMES (test code = JAMES) Biotin has been reported to cause a negative bias, interpret results relative to patient's use of biotin. Lab Interpretation (test Normal code = 53845-0) [facility] HEAD WO [id number] 14:36:47 No acute intracranial abnormality. Dilated ventricles [...] this study and agree with the abovereport.[facility] HospitalURINALYSIS2021-03-01 14:28:00 Test Item Value Reference Range Interpretation Comments APPEARANCE (test code = Clear Clear 8786837437) COLOR (test code = Yellow Yellow 1646449686) PH (test code = 4.8-8.0 7046414835) SP GRAVITY (test code = 1.003-1.030 7098391226) GLU U QUAL (test code = 500 mg/dL Normal A 4819624872) BLOOD (test code = Negative Negative 9622164732) KETONES (test code = 5 mg/dL Negative A 4680635004) PROTEIN (test code = Negative Negative 2887-8) UROBILIN (test code = Normal Normal 8528259479) BILIRUBIN (test code = Negative Negative 7180282096) NITRITE (test code = Negative Negative 3324349917) LEUK RYAN (test code = Negative Negative 6712675068) RBC/HPF (test code = See_Comment [Autom ated message] 7685095732) The system [employer] generated this result transmit ronan reference range : 0 - 3 HPF. The refe rence range was not u sed to interpret th is result as normal/abnormal . WBC/HPF (test code = See_Comment [Autom ated message] 2097820884) The system [employer] generated this result transmit ronan reference range : 0 - 5 HPF. The refe rence range was not u sed to interpret th is result as normal/abnormal . BACTERIA (test code = Negative Negative 6769186662) MUCOUS (test code = Slight Negative LPF A 1057513566) SQ EPITH (test code = HPF 1824650401) Lab Interpretation (test Abnormal code = 43006-6) [facility] HospitalCOVID-19 (ID NOW RAPID TESTING)2020-12-11 13:10:00 Test Item Value Reference Range Interpretation Comments SARS-CoV-2 Rapid ID NOW Not Detected Not Detected (test code = 55774-3) JAMES (test code = JAMES) ID NOW COVID-19 Assay is an isothermal nucleic acid amplification test intended for the qualitative detection of nucleic acid from SARS-CoV-2 viral RNA in nasopharyngeal ([employer] SAL[employer] REPRESENTATIVE) specimens. It is used under Emergency Use [...] indicated. Lab Interpretation Normal (test code = 89558-8) [facility]. METABOLIC PANEL (50208)2020-12-11 12:29:00 Test Item Value Reference Range Interpretation Comments NA (test code = 136 mmol/L 135-145 2773370708) K (test code = 3.5 mmol/L 3.5-5.0 2144810409) CL (test code = 95 mmol/L 98-108 L 3710173326) CO2 TOTAL (test code = 35 mmol/L 23-31 H 7631463959) AGAP (test code = 2-16 1438883420) BUN (test code = 9 mg/dL 7-23 8362955734) GLUCOSE (test code = 329 mg/dL 70-110 H 9834106364) CREATININE (test code = 0.72 mg/dL 0.60-1.25 3742943600) TOTAL BILI (test code = 0.6 mg/dL 0.1-1.6 3567625098) CALCIUM (test code = 9.0 mg/dL 8.6-10.6 3625321919) T PROTEIN (test code = 6.8 g/dL 6.3-8.2 2038904043) ALBUMIN (test code = 3.8 g/dL 3.5-5.0 9905581589) ALK PHOS (test code = 288 U/L 34-122 H 1724032017) ALTv (test code = 46 U/L 5-50 1742-6) AST(SGOT) (test code = 38 U/L 13-40 6072545313) eGFR Calculation mL/min/1.73m2 (Non-) (test code = 5842966738) eGFR Calculation mL/min/1.73m2 () (test code = 5464282952) JAMES (test code = JAMES) Association of [...] tests). Lab Interpretation Abnormal (test code = 09690-6) [facility] [id number] 12:23:00 Test Item Value Reference Range Interpretation Comments LACTIC ACID (test code = 2.09 mmol/L 0.50-2.20 6083310846) Lab Interpretation (test code = Normal 15647-6) [facility] WITH [id number] 12:17:00 Test Item Value Reference Range Interpretation Comments WBC (test code = See_Comment H [Automated 3790-2) message] The sy stem which generated this result transmitted reference range : 4.20 - 10.70 10*3/?L. The reference range was not used to interpret this result as normal/abnormal . RBC (test code = See_Comment [Automated 249-8) message] The sy stem which [...] RDW-SD (test code = 44.9 fL 38.5-51.6 45639-3) RDW-CV (test code = 15.9 % 12.1-15.4 H 788-0) PLT (test code = See_Comment H [Automated 777-3) message] The sy stem which generated this result transmitted reference range : 150 - 328 10*3/ ?L. The reference r torito was not used to interpret this result as normal/abnormal . MPV (test code = 8.3 fL 9.8-13.0 L 25613-0) NRBC/100 WBC (test See_Comment [Automat ed code = 9277025954) message] The system which generated this result transmitted reference range : 0.0 - 10.0 /100 WBCs. The refer ence range was not u sed to interpret th is result as normal/abnormal . NRBC x10^3 (test code <0.01 See_Comment [Auto mated = 2636250933) message] The s ystem which generated this result transmitted reference range : 10*3/?L. The reference range was not used to interpret this result as normal/abnormal . GRAN MAT (NEUT) % 77.9 % (test code = 770-8) IMM GRAN % (test code 0.50 % = 9151857951) LYMPH % (test code = 12.2 % 736-9) MONO % (test code = 5.2 % 5905-5) EOS % (test code = 3.7 % 713-8) BASO % (test code = 0.5 % 706-2) GRAN MAT x10^3(ANC) 9.57 10*3/uL 1.99-6.95 H (test code = 1268345915) IMM GRAN x10^3 (test 0.06 10*3/uL 0.00-0.06 code = 9998607047) LYMPH x10^3 (test code 1.50 10*3/uL 1.09-3.23 = 731-0) MONO x10^3 (test code 0.64 10*3/uL 0.36-1.02 = 742-7) EOS x10^3 (test code = 0.46 10*3/uL 0.06-0.53 711-2) BASO x10^3 (test code 0.06 10*3/uL 0.01-0.09 = 704-7) Lab Interpretation Abnormal (test code = 09690-7) [facility] [id number] 18:43:00COVID DMT InterpretationInterpretation/Recommendations: Molecular NAAT Test Results [...] a nasopharyngeal sample, there is approximately a mdy-np-baplj chance that the patient was infected and [...] based upon aggregate data pooled from the [facility] medical recordincluding both current and prior COVID-19 related testing results for the following tests offered atour institution:A. Tests for the Identification of SARS-CoV-2 RNA:SARS-CoV-2 PCR assays including Coleman Aptima, Coleman Fusion, Barrett RealTime, and Etopus Xpert Xpress. SARS-CoV-2 Rapid ID NOW by the ID NOW assay. ? B. Tests for the Identification of SARS-CoV-2 Antibodies: Chemiluminescent immunoassays including Access SARS-CoV-2 IgM (DXI 600), VITROS Jwbg-WAHU-InY-2 IgG (Vitros 5600 and Vitros 3600), and Barrett SARS-CoV-2 IgG (RN SURGERY ICU I System). These interpretation comments assume that only the above testing was utilized and that the approved acceptable specimen type(s) were used for a given test. These interpretations are autopopulated into [employer] based on computerized algorithms matching an interpretation code number to the patient's set of test results. While a clinical pathologist evaluates the combinations for clinical accuracy, clinical correlation is recommended as it may not take into account very remote prior testing. Furthermore, it does not consider testing a patient may have had outside of the [facility] system. Additionally, it should be noted that the computerized algorithm treats the results for PCR testing and Rapid ID NOW testing (also PCR) synonymously, and thus, refers to both testing methodologies as PCR tests. Given that the sensitivity of [facility]'s Rapid ID NOW testing platform [...] pathogen panel may be beneficialin this setting. [facility] LABORATORY SERVICESCOVID EbniwkrIYKJ-NfM-7 Rapid ID NOW (no units) ? ? Date ? Value ? 08/21/2020 ? Not Detected ? [facility]2020-08-23 18:25:00 Test Item Value Reference Range Interpretation Comments POCT GLU (test code = 6572292880) 297 mg/dL 70-110 H Lab Interpretation (test code = Abnormal 43013-3) [facility] GLUCOSE (AUTOMATED)2020-08-23 14:25:00 Test Item Value Reference Range Interpretation Comments POCT GLU (test code = 9274168697) 181 mg/dL 70-110 H Lab Interpretation (test code = Abnormal 24846-0) [facility] Metabolic Panel (NA, K, CL, CO2, GLUCOSE, BUN, CREATININE, CA)2020-08-23 11:45:00 Test Item Value Reference Range Interpretation Comments NA (test code = 132 mmol/L 135-145 L 7195176109) K (test code = 4.0 mmol/L 3.5-5 8611936492) CL (test code = 96 mmol/L 98-108 L 2682654662) CO2 TOTAL (test code = 33 mmol/L 23-31 H 3811437060) AGAP (test code = 2-16 1913085413) BUN (test code = 9 mg/dL 7-23 0203958568) GLUCOSE (test code = 176 mg/dL 70-110 H 9074622482) CREATININE (test code = 0.66 mg/dL 0.6-1.25 3426791018) CALCIUM (test code = 8.5 mg/dL 8.6-10.6 L 7198414284) eGFR Calculation mL/min/1.73m2 (Non-) (test code = 6421877288) eGFR Calculation mL/min/1.73m2 () (test code = 1796602019) JAMES (test code = JAMES) Association of [...] tests). Lab Interpretation Abnormal (test code = 40678-3) [facility] HospitalMagnesium Eoxjm2400-49-48 11:45:00 Test Item Value Reference Range Interpretation Comments MAGNESIUM (test code = 8330566918) 2.0 mg/dL 1.7-2.4 Lab Interpretation (test code = Normal 84358-1) [facility] with Hezldwqcobnq2095-09-67 11:38:00 Test Item Value Reference Range Interpretation [...] RDW-SD (test code = 41.8 fL 38.5-51.6 34134-1) RDW-CV (test code = 14.3 % 12.1-15.4 788-0) PLT (test code = See_Comment H [Automated 777-3) message] The sy stem which generated this result transmitted reference range : 150 - 328 10*3/ ?L. The reference r torito was not used to interpret this result as normal/abnormal . MPV (test code = 8.0 fL 9.8-13 L 65475-0) NRBC/100 WBC (test See_Comment [Automat ed code = 4909384629) message] The system which generated this result transmitted reference range : 0.0 - 10.0 /100 WBCs. The refer ence range was not u sed to interpret th is result as normal/abnormal . NRBC x10^3 (test code <0.01 See_Comment [Auto mated = 9258159448) message] The s ystem which generated this result transmitted reference range : 10*3/?L. The reference range was not used to interpret this result as normal/abnormal . GRAN MAT (NEUT) % 61.5 % (test code = 770-8) IMM GRAN % (test code 2.00 % = 2834689500) LYMPH % (test code = 25.5 % 736-9) MONO % (test code = 6.3 % 5905-5) EOS % (test code = 3.7 % 713-8) BASO % (test code = 1.0 % 706-2) GRAN MAT x10^3(ANC) 5.29 10*3/uL 1.99-6.95 (test code = 2900521679) IMM GRAN x10^3 (test 0.17 10*3/uL 0-0.06 H code = 3586454203) LYMPH x10^3 (test code 2.19 10*3/uL 1.09-3.23 = 731-0) MONO x10^3 (test code 0.54 10*3/uL 0.36-1.02 = 742-7) EOS x10^3 (test code = 0.32 10*3/uL 0.06-0.53 711-2) BASO x10^3 (test code 0.09 10*3/uL 0.01-0.09 = 704-7) Lab Interpretation Abnormal (test code = 82024-0) [facility] GLUCOSE (AUTOMATED)2020-08-23 10:22:00 Test Item Value Reference Range Interpretation Comments POCT GLU (test code = 4131730584) 164 mg/dL 70-110 H Lab Interpretation (test code = Abnormal 36144-9) [facility] GLUCOSE (AUTOMATED)2020-08-23 05:56:00 Test Item Value Reference Range Interpretation Comments POCT GLU (test code = 0410967861) 242 mg/dL 70-110 H Lab Interpretation (test code = Abnormal 63621-5) [facility] GLUCOSE (AUTOMATED)2020-08-23 03:02:00 Test Item Value Reference Range Interpretation Comments POCT GLU (test code = 9505418157) 210 mg/dL 70-110 H Lab Interpretation (test code = Abnormal 74785-1) [facility] GLUCOSE (AUTOMATED)2020-08-22 23:40:00 Test Item Value Reference Range Interpretation Comments POCT GLU (test code = 6941921677) 267 mg/dL 70-110 H Lab Interpretation (test code = Abnormal 53511-6) [facility] GLUCOSE (AUTOMATED)2020-08-22 19:08:00 Test Item Value Reference Range Interpretation Comments POCT GLU (test code = 3458604938) 191 mg/dL 70-110 H Lab Interpretation (test code = Abnormal 59688-3) [facility] GLUCOSE (AUTOMATED)2020-08-22 13:50:00 Test Item Value Reference Range Interpretation Comments POCT GLU (test code = 8564670787) 174 mg/dL 70-110 H Lab Interpretation (test code = Abnormal 69740-5) [facility] Hospital[facility]INE [id number] 12:59:00 Test Item Value Reference Range Interpretation Comments URINE CULTURE (test No aerobic growth (< code = 630-4) 1000 CFU/mL) [facility] with Fsusqsalspgn9430-26-58 11:28:00 Test Item Value Reference Range Interpretation [...] RDW-SD (test code = 42.5 fL 38.5-51.6 54427-4) RDW-CV (test code = 14.5 % 12.1-15.4 788-0) PLT (test code = See_Comment H [Automated 777-3) message] The sy stem which generated this result transmitted reference range : 150 - 328 10*3/ ?L. The reference r torito was not used to interpret this result as normal/abnormal . MPV (test code = 8.0 fL 9.8-13 L 67786-9) NRBC/100 WBC (test See_Comment [Automat ed code = 8731538257) message] The system which generated this result transmitted reference range : 0.0 - 10.0 /100 WBCs. The refer ence range was not u sed to interpret th is result as normal/abnormal . NRBC x10^3 (test code <0.01 See_Comment [Auto mated = 3112167366) message] The s ystem which generated this result transmitted reference range : 10*3/?L. The reference range was not used to interpret this result as normal/abnormal . GRAN MAT (NEUT) % 69.1 % (test code = 770-8) IMM GRAN % (test code 2.20 % = 1056718812) LYMPH % (test code = 20.9 % 736-9) MONO % (test code = 5.8 % 5905-5) EOS % (test code = 1.0 % 713-8) BASO % (test code = 1.0 % 706-2) GRAN MAT x10^3(ANC) 6.51 10*3/uL 1.99-6.95 (test code = 8272593693) IMM GRAN x10^3 (test 0.21 10*3/uL 0-0.06 H code = 4646894384) LYMPH x10^3 (test code 1.97 10*3/uL 1.09-3.23 = 731-0) MONO x10^3 (test code 0.55 10*3/uL 0.36-1.02 = 742-7) EOS x10^3 (test code = 0.09 10*3/uL 0.06-0.53 711-2) BASO x10^3 (test code 0.09 10*3/uL 0.01-0.09 = 704-7) BASO STIPPLING (test Present A code = 703-9) BANDS (test code = Increased A 9463509104) TOXIC CHANGES (test Present A code = 803-7) Lab Interpretation Abnormal (test code = 41474-6) [facility] Metabolic Panel (NA, K, CL, CO2, GLUCOSE, BUN, CREATININE, CA)2020-08-22 11:12:00 Test Item Value Reference Range Interpretation Comments NA (test code = 135 mmol/L 135-145 9742497347) K (test code = 3.6 mmol/L 3.5-5 2922311491) CL (test code = 99 mmol/L 98-108 5061523142) CO2 TOTAL (test code = 31 mmol/L 23-31 6669733570) AGAP (test code = 2-16 7714407967) BUN (test code = 9 mg/dL 7-23 1556915212) GLUCOSE (test code = 198 mg/dL 70-110 H 8020855901) CREATININE (test code = 0.72 mg/dL 0.6-1.25 6641475105) CALCIUM (test code = 8.3 mg/dL 8.6-10.6 L 4900726465) eGFR Calculation mL/min/1.73m2 (Non-) (test code = 2415944107) eGFR Calculation mL/min/1.73m2 () (test code = 4479667640) JAMES (test code = JAMES) Association of [...] tests). Lab Interpretation Abnormal (test code = 20705-7) [facility] HospitalMagnesium Vqelr5920-31-79 11:12:00 Test Item Value Reference Range Interpretation Comments MAGNESIUM (test code = 2760256373) 2.0 mg/dL 1.7-2.4 Lab Interpretation (test code = Normal 51453-3) [facility] HospitalLipid Panel (Total Cholesterol, Triglycerides, HDL) - Ryoovdr5933-40-71 11:12:00 Test Item Value Reference Range Interpretation Comments CHOL (test code = 155 mg/dL 120-200 1655436076) HDL (test code = 42 mg/dL >40 2179449534) HDLC RATIO (test code = See_Comment [Au tomated message] 8650292150) The system Mim[employer] generated this result transmit ronan reference range : <=5.0. The refe rence range was not u sed to interpret th is result as normal/abnormal . TRIG (test code = 186 mg/dL 30-170 H 9856897840) LDL CHOL (test code = 76 mg/dL See_Comment [Auto mated message] 77424-6) The system [employer] generated this result transmit ronan reference range : <=160. The refe rence range was not u sed to interpret th is result as normal/abnormal . VLDL (test code = 37 mg/dL 5-60 4163878004) Lab Interpretation (test Abnormal code = 65622-9) [facility] HospitalHEPATIC FUNCTION PANEL (82574) (ALB,T.PRO,BILI T,BU/BC,ALT,AST,ALK PHOS)2020-08-22 11:12:00 Test Item Value Reference Range Interpretation Comments TOTAL BILI (test code = 9385023249) 0.6 mg/dL 0.1-1.1 BILI UNCON (test code = 1645766492) 0.2 mg/dL 0.1-1.1 BILI CONJ (test code = 5500403811) 0.0 mg/dL 0-0.3 T PROTEIN (test code = 8050965190) 6.0 g/dL 6.3-8.2 L ALBUMIN (test code = 1052914253) 2.8 g/dL 3.5-5 L ALK PHOS (test code = 7998907332) 222 U/L 34-122 H ALTv (test code = 1742-6) 27 U/L 5-50 AST(SGOT) (test code = 6453064357) 30 U/L 13-40 Lab Interpretation (test code = Abnormal 14613-5) [facility] GLUCOSE (AUTOMATED)2020-08-22 10:11:00 Test Item Value Reference Range Interpretation Comments POCT GLU (test code = 8994688309) 196 mg/dL 70-110 H Lab Interpretation (test code = Abnormal 26604-3) [facility] GLUCOSE (AUTOMATED)2020-08-22 07:15:00 Test Item Value Reference Range Interpretation Comments POCT GLU (test code = 4617831443) 183 mg/dL 70-110 H Lab Interpretation (test code = Abnormal 84631-2) [facility] GLUCOSE (AUTOMATED)2020-08-22 02:30:00 Test Item Value Reference Range Interpretation Comments POCT GLU (test code = 1495455885) 295 mg/dL 70-110 H Lab Interpretation (test code = Abnormal 76423-8) [facility] GLUCOSE (AUTOMATED)2020-08-21 23:46:00 Test Item Value Reference Range Interpretation Comments POCT GLU (test code = 2335839950) 258 mg/dL 70-110 H Lab Interpretation (test code = Abnormal 89407-9) [facility] HospitalC-REACTIVE [id number] 18:50:00 Test Item Value Reference Range Interpretation Comments CRP (test code = 1026150613) 15.5 mg/dL <0.8 H Lab Interpretation (test code = Abnormal 42836-2) [facility]PO[facility]AUT[facility]ATED)2020-08-21 18:21:00 Test Item Value Reference Range Interpretation Comments POCT GLU (test code = 5845715535) 297 mg/dL 70-110 H Lab Interpretation (test code = Abnormal 52580-2) [facility] HospitalETHANOL2020-11-09 16:24:00 Test Item Value Reference Range Interpretation Comments ALCOHOL (test code = <10 mg/dL 1991835692) JAMES (test code = Toxic Greater than or JAMES) equal to 80 mg/dL. NOTE: Whole blood values are approximately 10% to 15% lower than serum and plasma. [facility] HospitalGAL/CLC ONLY - URINE DRUG (IMMUNOASSAY) - 4 ER [id number] 15:36:00 Test Item Value Reference Range Interpretation Comments AMPHET (test code = Negative Negative 5456194459) Cocaine Metabolite (test Negative Negative code = 2857037014) OPIATES (test code = Presumptive Positive Negative A 8478741101) THC (test code = Negative Negative 5800433590) JAMES (test code = JAMES) Urine Drug Cutoff Ranges Amphetamine: ? 1,000 ng/mLCocaine: ? 150 ng/mLOpiates: ? 300 ng/mLCannabinoids: ?50 ng/mL The results are to be used only for medical (i.e., treatment) purposes. Unconfirmed screening results must not be used for non-medical purposes (e.g., employment testing, legal testing). Lab Interpretation (test Abnormal code = 72786-2) [facility] ONLY - SYPHILIS IGG/[id number] 15:04:00 Test Item Value Reference Range Interpretation Comments Syphilis IgG/IgM (test Non-reactive Non-reactive code = 22473-7) JAMES (test code = JAMES) Non-reactive - No serologic evidence of T. pallidum infection. Cannot exclude incubating or early syphilis. Submit a second specimen in 2-4 weeks if syphilis is clinically suspected. Equivocal - Further testing to follow. Reactive - Further testing to follow. Lab Interpretation (test Normal code = 56899-1) [facility] HospitalUrinalysis2020-11-09 14:52:00 Test Item Value Reference Range Interpretation Comments APPEARANCE (test code = Clear Clear 2485925873) COLOR (test code = Yellow Yellow 7380247427) PH (test code = 4.8-8.0 2590186704) SP GRAVITY (test code = 1.003-1.030 0793823289) GLU U QUAL (test code = 500 mg/dL Normal A 7670728737) BLOOD (test code = Negative Negative 3559746198) KETONES (test code = 20 mg/dL Negative A 6330946230) PROTEIN (test code = Negative Negative 2887-8) UROBILIN (test code = Normal Normal 6803857562) BILIRUBIN (test code = Negative Negative 6113926995) NITRITE (test code = Negative Negative 4302852677) LEUK RYAN (test code = Negative Negative 4371361654) RBC/HPF (test code = <1 See_Comment [Autom ated message] 3052559806) The system Mimiboard generated this result transmit ronan reference range : 0 - 3 HPF. The refe rence range was not u sed to interpret th is result as normal/abnormal . WBC/HPF (test code = See_Comment [Autom ated message] 9924604369) The system Mimiboard generated this result transmit ronan reference range : 0 - 5 HPF. The refe rence range was not u sed to interpret th is result as normal/abnormal . BACTERIA (test code = Negative Negative 3981661965) MUCOUS (test code = Slight Negative LPF A 0642980699) Lab Interpretation (test Abnormal code = 79388-3) [facility] HospitalACTIVATED PARTIAL THRMPLAS [id number] 13:45:00 Test Item Value Reference Range Interpretation Comments APTT Patient (test code = See_Comment [ Automated message] 3173-2) The system Mimib[employer] generated this result transmitted ref erence range: 26 - 36 Seconds. The re ference range was not u sed to interpret this result as normal/abnor mal. Lab Interpretation (test Normal code = 39758-1) [facility] HospitalPOCT [facility]SE (AUT[facility]ATED)2020-08-21 13:45:00 Test Item Value Reference Range Interpretation Comments POCT GLU (test code = 0224911490) 246 mg/dL 70-110 H Lab Interpretation (test code = Abnormal 58753-1) [facility] HospitalHIV 1/2 AG-AB WITH [id number] 12:32:00 Test Item Value Reference Range Interpretation Comments HIV Negative Negative Semi-quantitative (test code = 66120-9) JAMES (test code = Non-reactive for HIV-1 JAMES) antigen and HIV-1/HIV-2 antibodies. ?No laboratory evidence of HIV infection. ?Repeat in 2-4 weeks if acute HIV infection is suspected. [facility] HospitalCBC WITH [id number] 12:18:00 Test Item Value Reference Range Interpretation [...] RDW-SD (test code = 44.4 fL 38.5-51.6 19108-3) RDW-CV (test code = 14.5 % 12.1-15.4 788-0) PLT (test code = See_Comment H [Automated 777-3) message] The sy stem which generated this result transmitted reference range : 150 - 328 10*3/ ?L. The reference r torito was not used to interpret this result as normal/abnormal . MPV (test code = 8.5 fL 9.8-13 L 97187-4) NRBC/100 WBC (test See_Comment [Automat ed code = 2073029700) message] The system which generated this result transmitted reference range : 0.0 - 10.0 /100 WBCs. The refer ence range was not u sed to interpret th is result as normal/abnormal . NRBC x10^3 (test code <0.01 See_Comment [Auto mated = 4146597683) message] The s ystem which generated this result transmitted reference range : 10*3/?L. The reference range was not used to interpret this result as normal/abnormal . GRAN MAT (NEUT) % 90.4 % (test code = 770-8) IMM GRAN % (test code 1.30 % = 4046277951) LYMPH % (test code = 7.1 % 736-9) MONO % (test code = 0.5 % 5905-5) EOS % (test code = 0.1 % 713-8) BASO % (test code = 0.6 % 706-2) GRAN MAT x10^3(ANC) 7.74 10*3/uL 1.99-6.95 H (test code = 5891626513) IMM GRAN x10^3 (test 0.11 10*3/uL 0-0.06 H code = 3536405329) LYMPH x10^3 (test code 0.61 10*3/uL 1.09-3.23 L = 731-0) MONO x10^3 (test code 0.04 10*3/uL 0.36-1.02 L = 742-7) EOS x10^3 (test code = <0.03 0.06-0.53 L 711-2) BASO x10^3 (test code 0.05 10*3/uL 0.01-0.09 = 704-7) POLYCHROMASIA (test 2+ See_Comment [Automa ronan code = 01382-4) message] The system which generated this result transmitted reference range : 2+. The referen ce range was not u sed to interpret th is result as normal/abnormal . BANDS (test code = Increased A 9098847986) Lab Interpretation Abnormal (test code = 74446-3) [facility] HospitalPROCALCITONIN2020-11-09 11:48:00 Test Item Value Reference Range Interpretation Comments Procalcitonin (test 0.36 ng/mL <0.07 H code = 6989656801) JAMES (test code = JAMES) INTERPRETATION OF [...] lung abscess/empyema. For further information please refer to:[email or web address] Lab Interpretation Abnormal (test code = 23854-0) [facility] HospitalLARIATE [id number] 10:53:00 Test Item Value Reference Range Interpretation Comments LDH (test code = 3526792344) 351 U/L 300-600 Lab Interpretation (test code = Normal 62959-9) [facility] HospitalSEDIMENTATION [id number] 10:07:00 Test Item Value Reference Range Interpretation Comments ESR (test code = See_Comment H [Automated message] 6132873266) The system Mim[employer] generated this result transmitted ref erence range: 0 - 10 m m/HR. The reference r torito was not used to interpret this result as normal/abnor mal. Lab Interpretation (test Abnormal code = 13170-1) [facility] HospitalPO[facility]SE (AUT[facility]ATED)2020-08-21 09:45:00 Test Item Value Reference Range Interpretation Comments POCT GLU (test code = 0362283210) 287 mg/dL 70-110 H Lab Interpretation (test code = Abnormal 31180-1) [facility] HospitalGlycosylated Hemoglobin (A1C)2020-08-21 09:29:00 Test Item Value Reference Range Interpretation Comments HGB A1C (test code = 4548-4) 9.8 % 4-6 H Lab Interpretation (test code = Abnormal 75310-5) [facility] HospitalCOVID-19 (ID NOW RAPID TESTING)2020-08-21 09:13:00 Test Item Value Reference Range Interpretation Comments SARS-CoV-2 Rapid ID NOW Not Detected Not Detected (test code = 90151-3) JAMES (test code = JAMES) ID NOW COVID-19 Assay is an isothermal nucleic acid amplification test intended for the qualitative detection of nucleic acid from SARS-CoV-2 viral RNA in nasopharyngeal ([employer] SALES REPRESENTATIVE) specimens. It is used under Emergency Use [...] indicated. Lab Interpretation Normal (test code = 82107-6) [facility] HospitalProthrombin Time / [id number] 08:59:00 Test Item Value Reference Range Interpretation Comments PROTIME PATIENT (test See_Comment H [Auto mated message] code = 5964-2) The system [employer] generated this result transmitted ref erence range: 10.1 - 1 2.6 Seconds. The reference range was not used to int erpret this result as normal/abnormal . INR (test code = 6301-6) Nor mal INR <1.1; Warfarin Therap eutic range 2.0 to 3. 0 or 2.5 to 3.5, dep ending upon the indica tions. Lab Interpretation (test Abnormal code = 46778-4) [facility] Test Item Value Reference Range Interpretation Comments APTT Patient (test code = See_Comment [ Automated message] 3173-2) The system [employer]im[employer] generated this result transmitted ref erence range: 26 - 36 Seconds. The re ference range was not u sed to interpret this result as normal/abnor mal. Lab Interpretation (test Normal code = 61762-3) [facility] (NA, K, CL, CO2, GLUCOSE, BUN, CREATININE, CA)2020-08-21 08:52:00 Test Item Value Reference Range Interpretation Comments NA (test code = 136 mmol/L 135-145 0216396687) K (test code = 4.3 mmol/L 3.5-5 6253880046) CL (test code = 104 mmol/L 98-108 4178864209) CO2 TOTAL (test code = 24 mmol/L 23-31 0932555569) AGAP (test code = 2-16 9825807118) BUN (test code = 8 mg/dL 7-23 9146915164) GLUCOSE (test code = 308 mg/dL 70-110 H 7461577339) CREATININE (test code = 0.72 mg/dL 0.6-1.25 3501958827) CALCIUM (test code = 7.8 mg/dL 8.6-10.6 L 8580920396) eGFR Calculation mL/min/1.73m2 (Non-) (test code = 7344130426) eGFR Calculation mL/min/1.73m2 () (test code = 0458412729) JAMES (test code = JAMES) Association of [...] tests). Lab Interpretation Abnormal (test code = 72573-9) [facility]883[facility] (ALB,T.PRO,BILI T,BU/BC,ALT,AST,ALK PHOS)2020-08-21 08:52:00 Test Item Value Reference Range Interpretation Comments TOTAL BILI (test code = 8485817642) 0.8 mg/dL 0.1-1.1 BILI UNCON (test code = 8821697848) 0.3 mg/dL 0.1-1.1 BILI CONJ (test code = 4288666814) 0.0 mg/dL 0-0.3 T PROTEIN (test code = 2896229652) 5.7 g/dL 6.3-8.2 L ALBUMIN (test code = 7548610527) 2.7 g/dL 3.5-5 L ALK PHOS (test code = 2775199601) 245 U/L 34-122 H ALTv (test code = 1742-6) 37 U/L 5-50 AST(SGOT) (test code = 5914380079) 43 U/L 13-40 H Lab Interpretation (test code = Abnormal 29519-0) [facility]
[2022-10-20] MEDS ORDERED: NA CHLORIDE 0.9% 1,000 ML ONE (03:30)
[2022-10-20] MEDS ORDERED: ONDANSETRON 4 MG/2 ML VIAL ONE (03:30)
[2022-10-20 03:44] LABS: Absolute Lymphocytes (CBC) 0.7 K/uL (0.7-4.9); Hematocrit 40.2 % (39.6-49.0); Lymphocytes % 6.6 % (15.3-44.8); MCV 83.6 fL (80-100); MPV 5.9 fL (7.6-11.3)
[2022-10-20 04:14] LABS: Albumin 3.4 g/dL (3.4-5.0); Bilirubin Total 0.4 mg/dL (0.2-1.0); Potassium 4.3 mmol/L (3.5-5.1); Protein, Total 7.4 g/dL (6.4-8.2)
[2022-10-20 04:40] LABS: Urine Blood Negative (Negative); Urine Glucose Negative (Negative); Urine Protein Negative (Negative); Urine Specific Gravity 1.015 (1.005-1.030)
[2022-10-20] MEDS ORDERED: KETOROLAC 30 MG/ML INJ ONE (04:44)
[2022-10-20 05:01] LABS: Urine Bacteria None Seen /HPF (<20); Urine Mucus Slight /HPF (None Seen); Urine RBC <5 /HPF (None Seen)
[2022-10-20] MEDS ORDERED: METOPROLOL TAR 50 MG TAB ONE (05:04)
--- NOTE | 2022-10-20 06:07 | EDPHYS ---
Physician Documentation [facility] Name: Kiel Ngo Age: 72 yrs Sex: Male : 1950 Arrival Date: 10/20/2022 Time: 02:44 Bed 7 Private MD: ED Physician Carie Quintanilla HPI: 10/20 02:49 This 72 yrs old Male presents to ER via EMS with complaints of vomiting. sd2 02:49 72 yo M presents via EMS with CC of vomiting that started tonight since eating dinner. sd2 Denies any fever, CP, SOB, diarrhea or urinary symptoms. Reports no new food exposures or known sick contacts. Took Pepto-Bismol at home [employer]. Also complains of his chronic R groin/hip pain and states that he ran out of his home narcotic pain medications. . Historical: - Allergies: 02:46 Demerol; as6 02:46 metformin; as6 02:46 Morphine; as6 - PMHx: 02:46 Atrial fibrillation; chronic back pain; Chronic right leg pain; neuropathy; as6 - PSHx: 02:46 back sx; PANCREAS SX; R. Ankle SX; as6 - Immunization history:: Client reports having NOT received the Covid vaccine. Flu vaccine is not up to date. - Social history:: Smoking status: Patient denies any tobacco usage or history of. ROS: 02:49 Constitutional: Negative for fever, chills, and weight loss, Eyes: Negative for injury, sd2 pain, redness, and discharge, Cardiovascular: Negative for chest pain, palpitations, and edema, Respiratory: Negative for shortness of breath, cough, wheezing. 02:49 : Negative for dysuria, frequency or hematuria. MS/Extremity: Negative for injury and deformity, Skin: Negative for injury, rash, and discoloration, Neuro: Negative for headache, numbness and tingling. 02:49 Abdomen/GI: Positive for abdominal pain, nausea and vomiting, Negative for diarrhea. Exam: 02:49 Constitutional: This is a well developed, well nourished patient who is awake, alert, sd2 and in no acute distress. Head/Face: Normocephalic, atraumatic. Eyes: EOMI, normal conjunctiva bilaterally Chest/axilla: Normal chest wall appearance and motion. Nontender with no deformity. Cardiovascular: Regular rate and rhythm with a normal S1 and S2. No gallops, murmurs, or rubs. 2+ distal pulses. Respiratory: Lungs have equal breath sounds bilaterally, clear to auscultation and percussion. No rales, rhonchi or wheezes noted. No increased work of breathing, no retractions or nasal flaring. Abdomen/GI: Soft, non-tender, with normal bowel sounds. No guarding or rebound. No evidence of tenderness throughout. Skin: Warm, dry with normal turgor. Normal color with no rashes, no lesions, and no evidence of cellulitis. MS/ Extremity: Pulses equal, no cyanosis. Neurovascular intact. Full, normal range of motion. Ambulatory without difficulty. Psych: Awake, alert, with orientation to person, place and time. Behavior, mood, and affect are within normal limits. 04:59 ECG was reviewed by the Attending Physician. Sinus tachycardia, rate 142, no STEMI sd2 criteria Vital Signs: 02:44 BP 156 / 89; Pulse 140; Resp 19 S; Temp 99.0(O); Pulse Ox 97% on R/A; Weight 83.91 kg as6 (R); Height 5 ft. 11 in. (180.34 cm) (R); Pain 10/10; 02:45 BP 150 / 90; Pulse 138; Resp 19 S; Pulse Ox 97% on R/A; ha1 03:30 BP 156 / 101; Pulse 143; Resp 19 S; Pulse Ox 97% on R/A; as6 04:30 BP 164 / 91; Pulse 135; Resp 20 S; Pulse Ox 98% on R/A; as6 05:30 BP 133 / 76; Pulse 101; Resp 17 S; Pulse Ox 99% on R/A; ha1 05:59 Pulse 97; as6 06:27 BP 132 / 74; Pulse 90; Resp 16 S; Pulse Ox 98% on R/A; ha1 02:44 Body Mass Index 25.80 (83.91 kg, 180.34 cm) as6 MDM: 02:47 Patient medically screened. sd2 02:49 Differential Diagnosis Gastritis, cholecystitis, pancreatitis, SBO, diverticulitis, sd2 kidney stone, appendicitis, UTI, dehydration, electrolyte abnormality among others. Data reviewed: vital signs, nurses notes, EMS record. 06:04 Data reviewed: lab test result(s), radiologic studies. Counseling: I had a detailed sd2 discussion with the patient and/or guardian regarding: the historical points, exam findings, and any diagnostic results supporting the discharge/admit diagnosis, lab results, radiology results, the need for outpatient follow up, to return to the emergency department if symptoms worsen or persist or if there are any questions or concerns that arise at home. ED course: Labs and imaging reviewed and grossly WNCL. Pt tolerating PO after Zofran with benign abdominal exam. HR improved to 96 after patient's PO metoprolol dose was given which he had not been taking regularly due to forgetting per the patient. Pt requests further pain medication only in regards to his chronic pain. 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 Concern for abuse of narcotics due to patient coming here regularly for pain management due to running out of his medications because he takes more medication than is prescribed for him to take daily. Pt once again advised to take his medication only as prescribed. Verbalizes understanding of discharge plan and strict return precautions. . 10/20 02:49 Order name: CBC with Diff; Complete Time: 04:39 sd2 10/20 02:49 Order name: CMP; Complete Time: 04:39 sd2 10/20 02:49 Order name: Lipase; Complete Time: 04:39 sd2 10/20 02:49 Order name: Troponin High Sensitivity; Complete Time: 04:39 sd2 10/20 02:49 Order name: Urine Microscopic Only; Complete Time: 05:29 sd2 10/20 04:21 Order name: CREATININE WHOLE BLOOD; Complete Time: 04:39 EDMS 10/20 02:49 Order name: CT Abd/Pelvis - IV Contrast Only sd2 10/20 02:53 Order name: Abdomen EDMS 10/20 04:23 Order name: CREATININE WHOLE BLOOD EDMS 10/20 04:40 Order name: Urine Dipstick-Ancillary; Complete Time: 04:45 EDMS 10/20 02:49 Order name: EKG - Nurse/Tech; Complete Time: 03:45 sd2 10/20 02:49 Order name: Urine Dipstick-Ancillary (obtain specimen); Complete Time: 04:39 sd2 Administered Medications: 03:32 Drug: NS 0.9% 1000 ml Route: IV; Rate: 1 bolus; Site: right upper arm; as6 06:08 Follow up: Response: No adverse reaction; IV Status: Completed infusion; IV Intake: as6 1000ml 03:32 Drug: Zofran (Ondansetron) 4 mg Route: IVP; Site: right upper arm; as6 06:08 Follow up: Response: No adverse reaction as6 04:40 Drug: Ketorolac 15 mg Route: IVP; Site: right upper arm; ha1 05:15 Follow up: Response: No adverse reaction ha1 05:04 Drug: Metoprolol TARTRATE 50 mg Route: PO; ha1 05:30 Follow up: Response: No adverse reaction ha1 Disposition Summary: 10/20/22 06:07 Discharge Ordered Location: Home sd2 Problem: new sd2 Symptoms: have improved sd2 Condition: Stable sd2 Diagnosis - Abdominal pain, Generalized sd2 - Chronic hip pain sd2 - Nausea and vomiting, resolved sd2 Followup: sd2 - With: Private Physician - When: 2 - 3 days - Reason: Recheck today's complaints, Continuance of care, Re-evaluation by your physician Discharge Instructions: - Discharge Summary Sheet sd2 - Abdominal Pain, Adult sd2 - Chronic Pain, Adult sd2 - Vomiting, Adult sd2 Forms: - Medication Reconciliation Form sd2 - Thank You Letter sd2 - Antibiotic Education sd2 - Prescription Opioid Use sd2 Prescriptions: - Zofran 4 mg Oral Tablet - take 1 tablet by ORAL route every 6 hours As needed; 10 tablet; Refills: 0, sd2 Product Selection Permitted Signatures: Dispatcher [employer] Adrian Sears RN RN as6 Carie Quintanilla MD MD sd2 Chyna Salinas RN RN ha1
--- NOTE | 2022-10-20 06:07 | ER ---
Nurse's Notes [facility] Name: Kiel Ngo Age: 72 yrs Sex: Male : 1950 Arrival Date: 10/20/2022 Time: 02:44 Bed 7 Private MD: Diagnosis: Abdominal pain, Generalized;Chronic hip pain;Nausea and vomiting, resolved Presentation: 10/20 02:44 Chief complaint: EMS states: called out for nausea, vomiting, and abdominal pain. as6 Coronavirus screen: At this time, the client does not indicate any symptoms associated with coronavirus-19. Ebola Screen: No symptoms or risks identified at this time. Initial Sepsis Screen: Does the patient meet any 2 criteria? No. Patient's initial sepsis screen is negative. Does the patient have a suspected source of infection? No. Patient's initial sepsis screen is negative. Risk Assessment: Do you want to hurt yourself or someone else? Patient reports no desire to harm self or others. Onset of symptoms was October 19, 2022. 02:44 Method Of Arrival: EMS: [facility] as6 02:44 Acuity: JOZEF 2 as6 Historical: - Allergies: 02:46 Demerol; as6 02:46 metformin; as6 02:46 Morphine; as6 - PMHx: 02:46 Atrial fibrillation; chronic back pain; Chronic right leg pain; neuropathy; as6 - PSHx: 02:46 back sx; PANCREAS SX; R. Ankle SX; as6 - Immunization history:: Client reports having NOT received the Covid vaccine. Flu vaccine is not up to date. - Social history:: Smoking status: Patient denies any tobacco usage or history of. Screenin:47 Abuse screen: Denies threats or abuse. Denies injuries from another. Nutritional ha1 screening: No deficits noted. Tuberculosis screening: No symptoms or risk factors identified. 04:43 [facility] ED Fall Risk Assessment (Adult) History of falling in the last 3 months, as6 including since admission Yes- physiologic fall (2 pts) Confusion or Disorientation No (0 pts) Intoxicated or Sedated No (0 pts) Impaired Gait Yes (1 pt) Mobility Assist Device Used No (0 pt) Altered Elimination No (0 pt) Score/Fall Risk Level 3 or more points = High Risk. Assessment: 02:45 General: Appears comfortable, Behavior is calm, cooperative. Neuro: Level of ha1 Consciousness is awake, alert, obeys commands, Oriented to person, place, time, situation. Cardiovascular: Patient's skin is warm and dry. Rhythm is sinus tachycardia. Respiratory: Airway is patent Respiratory effort is even, unlabored, Respiratory pattern is regular, symmetrical. GI: Abdomen is non-distended, obese, Bowel sounds present X 4 quads. Musculoskeletal: Circulation, motion, and sensation intact. 02:45 EENT: No deficits noted. No signs and/or symptoms were reported regarding the EENT ha1 system. 03:45 Reassessment: Patient is alert, oriented x 3, equal unlabored respirations, skin ha1 warm/dry/pink. going to CT. 04:43 Pain: Complains of pain in abdomen. as6 05:50 Reassessment: Patient and/or family updated on plan of care and expected duration. Pain ha1 level reassessed. Patient is alert, oriented x 3, equal unlabored respirations, skin warm/dry/pink. pain 8/10. notified in shift. 06:08 General: discharge pending transportation . as6 06:20 Reassessment: Patient is alert, oriented x 3, equal unlabored respirations, skin ha1 warm/dry/pink. Vital Signs: 02:44 BP 156 / 89; Pulse 140; Resp 19 S; Temp 99.0(O); Pulse Ox 97% on R/A; Weight 83.91 kg as6 (R); Height 5 ft. 11 in. (180.34 cm) (R); Pain 10/10; 02:45 BP 150 / 90; Pulse 138; Resp 19 S; Pulse Ox 97% on R/A; ha1 03:30 BP 156 / 101; Pulse 143; Resp 19 S; Pulse Ox 97% on R/A; as6 04:30 BP 164 / 91; Pulse 135; Resp 20 S; Pulse Ox 98% on R/A; as6 05:30 BP 133 / 76; Pulse 101; Resp 17 S; Pulse Ox 99% on R/A; ha1 05:59 Pulse 97; as6 06:27 BP 132 / 74; Pulse 90; Resp 16 S; Pulse Ox 98% on R/A; ha1 02:44 Body Mass Index 25.80 (83.91 kg, 180.34 cm) as6 ED Course: 02:44 Patient arrived in ED. as6 02:45 Patient has correct armband on for positive identification. Bed in low position. Call ha1 light in reach. Side rails up X 1. 02:46 Triage completed. as6 02:46 Arm band placed on. as6 02:47 Adrian López, DIEGO is Primary Nurse. as6 02:47 Carie Quintanilla MD is Attending Physician. sd2 03:34 Accessed peripheral vein via ultrasound, utilizing dynamic ultrasound technique bb Powerglide midline 18g 10cm to right upper arm using hospital protocol with good blood return and flushes easily pt tolerated well. 04:06 Abdomen In Process Unspecified. EDMS 04:39 Urine Microscopic Only Sent. as6 04:57 Door closed. Noise minimized. Warm blanket given. ha1 06:08 No provider procedures requiring assistance completed. as6 06:18 IV discontinued, intact, bleeding controlled, No redness/swelling at site. Pressure as6 dressing applied. Administered Medications: 03:32 Drug: NS 0.9% 1000 ml Route: IV; Rate: 1 bolus; Site: right upper arm; as6 06:08 Follow up: Response: No adverse reaction; IV Status: Completed infusion; IV Intake: as6 1000ml 03:32 Drug: Zofran (Ondansetron) 4 mg Route: IVP; Site: right upper arm; as6 06:08 Follow up: Response: No adverse reaction as6 04:40 Drug: Ketorolac 15 mg Route: IVP; Site: right upper arm; ha1 05:15 Follow up: Response: No adverse reaction ha1 05:04 Drug: Metoprolol TARTRATE 50 mg Route: PO; ha1 05:30 Follow up: Response: No adverse reaction ha1 Medication: 04:44 VIS not applicable for this client. as6 Intake: 06:08 IV: 1000ml; Total: 1000ml. as6 Outcome: 06:07 Discharge ordered by . sd2 06:08 Condition: stable as6 06:17 Discharged to home via ambulance. as6 06:17 Discharge instructions given to patient, Instructed on discharge instructions, follow up and referral plans. medication usage, Demonstrated understanding of instructions, follow-up care, medications, Prescriptions given X 1. 06:24 Patient left the ED. as6 Signatures: Dispatcher [employer] Elvia Pierre RN RN bb Adrian López RN RN as6 Carie Quintanilla MD MD sd2 Chyna Salinas RN RN ha1 Corrections: (The following items were deleted from the chart) 05:57 05:50 Reassessment: Patient and/or family updated on plan of care and expected ha1 duration. Pain level reassessed. Patient is alert, oriented x 3, equal unlabored respirations, skin warm/dry/pink. pain 8/10 ha1
[2022-10-20 06:29] VITALS: TEMP 99
[2022-10-20 06:33] VITALS: BP 133/76; O2SAT 99
--- NOTE | 2022-10-20 19:33 | RAD REPORT ---
EXAM DESCRIPTION: CT Abdomen and Pelvis With Intravenous Contrast CLINICAL HISTORY: The patient is 72 years old and is Male; Abdominal pain, acute, nonlocalized [facility] MAIN TECHNIQUE: Axial computed tomography images of the abdomen and pelvis with intravenous contrast. S agittal and coronal reformatted images were created and reviewed. This CT exam was performed using one or more of the following dose reduction techniques: automated exposure control, adjustment of t he mA and/or kV according to patient size, and/or use of iterative reconstruction technique. COMPARISON: 04/28/2022 CT abdomen pelvis without contrast FINDINGS: LUNG BASES: Right hemidiaphragm elevation with right basilar scarring versus atelectasi s. ABDOMEN: LIVER: Unremarkable. No mass. GALLBLADDER AND BILE DUCTS: Cholecystectomy. No ductal dilation. PANCREAS: Absence or marked atrophy of the pancreatic body and tail. No ductal dilation. SPLEEN: Unremarkable. No splenomegaly. ADRENALS: Unremarkable. No mass. KIDNEYS AND URETERS: Simple exophytic bilateral renal cysts. No dedicated imaging follow-up recomm ended for this particular finding. No hydronephrosis. STOMACH AND BOWEL: Moderate stool retention demonstrated throughout the colon with no small or lar ge bowel obstruction. No pneumatosis or mesenteric or portal venous gas. No wall thickening to sugges t enteritis or colitis. Redemonstrated small bowel anastomosis in the left of midline upper abdomen, which appears patent. PELVIS: APPENDIX: No findings to suggest acute appendicitis. BLADDER: Unremarkable. No mass. REPRODUCTIVE: Unremarkable as visualized. ABDOMEN and PELVIS: INTRAPERITONEAL SPACE: Unremarkable. No free air. No significant fluid collection. BONES/JOINTS: Multilevel degenerative changes of the spine with multilevel ossification of the int erspinous ligament involving the inferior thoracic through lumbosacral junction, but no acute osseous abnormality. No dislocation. SOFT TISSUES: Bilateral gynecomastia. VASCULATURE: Multivessel coronary artery calcifications. Mild to moderate calcified atherosclerosis of the abdominal aorta without aneurysmal dilatat ion or dissection. LYMPH NODES: Unremarkable. No enlarged lymph nodes. TUBES, LINES AND DEVICES: Neurostimulator device redemonstrated in the right lateral abdominal wal l subcutaneous tissues with leads appear intact and terminating cranially within the posterior mid th oracic spinal canal. IMPRESSION: 1. No acute abnormality of the abdomen or pelvis. 2. Redemonstrated moderate stool burden demonstrated throughout the colon. Electronically signed by: Eitan Kennedy MD 10/20/2022 4:34 AM AUTOMOTIVE SERVICE DIRECTOR Due to temporary technical issues with the PACS/Fluency reporting system, reports are being signed by the in house radiologists without review as a courtesy to insure prompt reporting. The interpreting radiologist is fully responsible for the content of the report.
--- NOTE | 2022-10-21 16:29 | EKG ---
Test Date: 2022-10-20 Test Time: 03:37:00 Punch Finisher: JOSUE MEASUREMENT RESULTS: Intervals: Rate: 142 RI: 126 QRSD: 74 QT: 280 QTc: 430 [place]: P: 46 RI: 126 QRS: 9 T: 46 INTERPRETIVE STATEMENTS: Sinus tachycardia Possible Inferior infarct, age undetermined Cannot rule out Anterior infarct, age undetermined Abnormal ECG Compared to ECG 09/29/2022 16:59:13 No significant changes Electronically Signed On 10-21-22 16:27:13 OIL SPECULATOR by Óscar Holman
== END 2022-10-20 06:24 | disposition home or self-care (01) ==
LOC: ER 02:38
DX: R10.84 Generalized abdominal pain (principal); G89.29 Other chronic pain; I48.91 Unspecified atrial fibrillation; Z88.5 Allergy status to narcotic agent; Z88.8 Allergy status to other drugs, medicaments and biological substances
CPT/HCPCS: 96361; 93005; 85025; 36415; 82565; 84484; 83690; 80053; 74177; 96375; 96374; 99285; Q9967; J7030; J2405; 81003; 81015

== ENCOUNTER 2022-10-22 12:28 | Emergency (ER) | payer OTHER ==
--- OUTSIDE RECORDS SUMMARY | 2022-10-22 12:35 | XMS REPORT | Continuity of Care Document ---
:1950 Author Organization [facility] t Address [address] [place] [address] Care Team Providers Name Role Phone CALVIN [...] PACO LACEY Attending Clinician Unavailable Doctor Unassigned, [place] Attending Clinician Unavailable Wilder VILLAREAL, Angi K.HWong Attending Clinician Jl Mccabe MD Attending Clinician Kelly Washington MD Attending Clinician [phone] Mukul Gallardo MD Attending Clinician MUKUL GALLARDO Admitting Clinician Unavailable Harrison MD, Premal G Admitting Clinician KRUPA VIKA G Admitting Clinician Unavailable Nicci VILLAREAL, Mukul Anand Admitting Clinician Payers Payer Name Policy Type Policy Number Effective Date Expiration Date Tony doe MEDICARE PART A [id number] 2007 \\T\\ B 00:00:00 [employer] INDEMNITY [id number] 2016 00:00:00 MEDICARE PART A [id number] 2014 \\T\\ B - MEDICARE 00:00:00 INDEMNITY/TRADITIO [id number] NAL CHOICE - [employer] 00:00:00 Problems Condition [...] ents Source Name Type Date Date Clinician Blair Propensi Active Rash 2019- Univers ty to [...] Quantity Comments Source Exposure to Not sure [place] of SARS-CoV-2 [place] [facility] (event) Branch History of Chews Tobacco University of tobacco use [place] [facility] History SDOH 2020-11-17 2020-11-17 5 University o f Financial 00:00:00 00:00:00 [place] [facility] History SDNH Food 2020-11-17 2020-11-17 1 Univers ity of Worry 00:00:00 00:00:00 [place] [facility] History SDOH Food 2020-11-17 2020-11-17 1 Univers ity of Scarcity 00:00:00 00:00:00 [place] [facility] History SDOH 2020-11-17 2020-11-17 1 University o f Transport Med 00:00:00 00:00:00 [place] Medic al [facility] History SDOH 2020-11-17 2020-11-17 1 University o f Transport Non-Med 00:00:00 00:00:00 [facility] edical Branch Education 2020-11-16 2020-11-16 21 [place] of 00:00:00 00:00:00 [facility] Alcohol intake 2020-11-16 2020-11-16 Ex-drinker [facility] 00:00:00 00:00:00 (finding) [facility] Tobacco use and 2020-08-21 2020-08-21 Former user Universi ty of exposure 00:00:00 00:00:00 [facility] Tobacco Comment 2020-08-21 2020-08-21 quit 10 years Univer sity of 00:00:00 00:00:00 ago, started in [place] Med ical 2nd year of Branch college (~40 years) Alcohol Comment 2020-08-21 2020-08-21 Used to have 2-3 Uni versity of 00:00:00 00:00:00 six-packs of [place] Medica l beer daily x 20 Branch years, quit 2004 History [facility] 2020-08-21 2020-08-21 99 University o f Alcohol Frequency 00:00:00 00:00:00 [place] M edical Branch History [facility] 2020-08-21 2020-08-21 99 [place] o f Alcohol Std 00:00:00 00:00:00 [place] [facility] Drinks Branch History [facility] 2020-08-21 2020-08-21 99 [place] o f Alcohol Binge 00:00:00 00:00:00 [facility] al Kiln Sex Assigned At [birth year] Universit y of 00:00:00 00:00:00 [facility] Smoking Status Start Date Stop Date Source Never smoker [facility] Medications Ordered Filled Start Stop [...] ity of tablet 22:47: mouth at [place] 18 bedtime. Medical Branch HYDROmorpho 2020-0 Yes [...] ity of tablet 22:47: mouth at [place] 18 bedtime. Medical Branch HYDROmorpho 0 Yes [...] ity of tablet 16:47: mouth at [place] 18 bedtime. Medical Branch HYDROmorpho 0 Yes [...] 0845, Until Discontinu ed, Routine amLODIPine Yes [id number] 10mg Take 1 Univers 10 mg 3-07 tablet by ity of tablet 00:00: mouth [place] 00 daily. Medical Branch clotrimazol Yes [id number] Apply to Univers e 1 % 3-07 face/ears, ity of topical 00:00: armpits, [place] cream 00 pannus and Medical back/any Branch other rash twice a day fluocinonid 0 Yes [id number] Apply to Univers e 0.05 % 3-07 scalp ity of solution 00:00: twice a [place] 00 day Medical Branch triamcinolo Yes [id number] Apply to Univers ne 3-07 back, ity of acetonide 00:00: armpits [place] 0.1 % cream 00 and other Med ical affected Branch areas twice daily, please mix with clotrimazo le hydrOXYzine Yes [id number] 10mg Take 1 Univers 10 mg 3-07 tablet by ity of tablet 00:00: mouth 2 00 (two) Medical times Branch daily. amLODIPine Yes [id number] 10mg Take 1 Univers 10 mg 3-07 tablet by ity of tablet 00:00: mouth [place] 00 daily. Medical Branch clotrimazol Yes [id number] Apply to Univers e 1 % 3-07 face/ears, ity of topical 00:00: armpits, [place] cream 00 pannus and Medical back/any Branch other rash twice a day fluocinonid Yes [id number] Apply to Univers e 0.05 % 3-07 scalp ity of solution 00:00: twice a day Medical Branch triamcinolo Yes [id number] Apply to Univers ne 3-07 back, ity of acetonide 00:00: armpits [place] 0.1 % cream 00 and other Med ical affected Branch areas twice daily, please mix with clotrimazo le hydrOXYzine Yes [id number] 10mg Take 1 Univers 10 mg 3-07 tablet by ity of tablet 00:00: mouth 2 [place] 00 (two) Medical times Branch daily. amLODIPine Yes [id number] 10mg Take 1 Univers 10 mg 3-07 tablet by ity of tablet 00:00: mouth [place] 00 daily. Medical Branch clotrimazol 0 Yes [id number] Apply to Univers e 1 % 3-07 face/ears, ity of topical 00:00: armpits, [place] cream 00 pannus and Medical back/any Branch other rash twice a day fluocinonid 2020-0 Yes [id number] Apply to Univers e 0.05 % 3-07 scalp ity of solution 00:00: twice a day Medical Branch triamcinolo 2020-0 Yes [id number] Apply to Univers ne 3-07 back, ity of acetonide 00:00: armpits [place] 0.1 % cream 00 and other Med ical affected Branch areas twice daily, please mix with clotrimazo le hydrOXYzine Yes [id number] 10mg Take 1 Univers 10 mg 3-07 tablet by ity of tablet 00:00: mouth 2 [place] (two) Medical times Branch daily. amLODIPine Yes [id number] 10mg Take 1 Univers 10 mg 3-07 tablet by ity of tablet 00:00: mouth [place] 00 daily. Medical Branch clotrimazol Yes [id number] Apply to Univers e 1 % 3-07 face/ears, ity of topical 00:00: armpits, [place] cream 00 pannus and Medical back/any Branch other rash twice a day fluocinonid Yes [id number] Apply to Univers e 0.05 % 3-07 scalp ity of solution 00:00: twice a day Medical Branch triamcinolo 0 Yes [id number] Apply to Univers ne 3-07 back, ity of acetonide 00:00: armpits [place] 0.1 % cream 00 and other Med ical affected Branch areas twice daily, please mix with clotrimazo le hydrOXYzine Yes [id number] 10mg Take 1 Univers 10 mg 3- tablet by ity of tablet 00:00: mouth 2 (two) Medical times Branch daily. cephALEXin 2020-2020- No [id number] 500mg Take 1 Univers 500 mg -04 14- capsule by ity of capsule 00:00: 05:59 mouth [place] 00 :00 every 6 Medical (six) Branch hours for 3 days. cephALEXin 2020-0 2020- No [id number] 500mg Take 1 Univers 500 mg 3-04 14- capsule by ity of capsule 00:00: 05:59 mouth [place] 00 :00 every 6 Medical (six) Branch hours for 3 days. hydrOXYzine 2020-2020- No [id number] 10mg Take 1 Univers 10 mg 3- 03-07 tablet by ity of tablet 00:00: 00:00 mouth 2 [place] 00 :00 (two) Medical times Kiln daily. morpHINE Yes 4mg 4 mg, Slow Uni vers injection 4 -06 IV Push, ity of mg 22:40: Q6HPRN, [place] 02 Starting Medical 12/16/20 Kiln at 1640, Until Discontinu ed, Routine, Pain [...] 00 :00 dose, Sat Medical 12/16/20 at Kiln 0515, Routine lactated 2020- No 1000mL at 125 Univ ers ringers IV 12-16 03-06 mL/hr, ity of infusion 01:00: 00:16 1,000 mL, [place] 1,000 mL 00 :00 IV Medical Infusion, Kiln ONCE, 1 dose, 12/15/20 at 1900, Routine iohexol 2020- No 100mL 100 mL, Unive rs (OMNIPAQUE 12-15-05 Intravenou it y of 350 22:24: 22:24 s, ONCE, 1 [place] BULK-100 00 :00 dose, Fri Medica l mL) 12/15/20 at Kiln injection 1645, 100 mL Routine cephALEXin 2020- [...] NaCl 0.9% 2020- No 500mL at 999 [facility] ers (NS) bolus 12-15-05 mL/hr, 500 it y of infusion 16:00: 15:26 mL, IV [place] 500 mL 00 :00 Piggyback, Medical ONCE, 1 Branch dose, Fri12/15/20 at 1000, STAT HYDROmorpho Yes 4mg 4 mg, [facility] 05 Oral, BID, ity of (DILAUDID) 15:30: First dose [place] tablet 4 mg 00 (after Medica l last Branch modificati on) on Fri12/15/20 at 0930, Until Discontinu ed, Routine amLODIPine 2020- No [id number] 10mg Take 1 Univers 10 mg 12-1507 tablet by ity of tablet 00:00: 00:00 mouth [place] 00 :00 daily. Medical Branch HYDROmorpho 2020- No 1mg 1 mg, [facility] ers ne 12-14 03-05 Oral, ity of (DILAUDID) 17:35: 15:18 Q6HPRN, [place] tablet 1 mg 30 :06 Starting Medi [facility] 12/14/20 Branch at 1135, Until Fri12/15/20 at 0918, Routine, Pain (scale 7-10) hydrOXYzine Yes 10mg 10 mg, [facility] ers (ATARAX) 304 Oral, BID, ity o f tablet 10 17:30: First dose [place] mg 00 on [facility] 12/14/20 at Branch 1130, Until Discontinu ed, Routine lisinopriL 0 Yes 5mg 5 mg, Univer s (PRINIVIL,Z -04 Oral, ity of ESTRIL) 17:30: DAILY, [place] tablet 5 mg 00 First dose Me dical on [facility] Branch 12/14/20 at 1130, Until Discontinu ed, Routine triamcinolo 2020- No [id number] Apply to Univers ne 12-14 back, ity of acetonide 00:00: 00:00 armpits [place] 0.1 % cream 00 :00 and other Med ical affected Branch areas twice daily, please mix with clotrimazo le clotrimazol 2020- No [id number] Apply to Univers e 1 % 12-14 face/ears, ity of topical 00:00: 00:00 armpits, [place] cream 00 :00 pannus and Medical back/any Branch other rash twice a day fluocinonid 2020- No [id number] Apply to Univers e 0.05 % 12-14 scalp ity of solution 00:00: 00:00 twice a [place] 00 :00 day Medical Branch hydrOXYzine 2020- No [id number] 10mg Take 1 Univers 10 mg 12-14 [...] injection 4 00 :00 dose, [facility] ical mg 12/12/20 at Branch 2300, Routine traMADoL 2020- No 50mg 50 mg, Univer s (ULTRAM) 12-13 03-03 Oral, ity of tablet 50 03:45: 03:34 ONCE, 1 [place] mg 00 :00 dose, [facility] 12/12/20 at Branch 2145, Routine insulin Yes 15U 15 Units, [facility] rs glargine 12-12 Subcutaneo ity o f (LANTUS 15:00: us, DAILY, [place] U-100) 00 First dose Medical injection on [facility] 15 Units 12/12/20 at 0900, Until Discontinu ed hydrOXYzine 2020- No 10mg 10 mg, Uni vers (ATARAX) 12-12 03-02 Oral, ity of tablet 10 08:15: 07:33 ONCE, 1 [place] mg 00 :00 dose, [facility] 12/12/20 at Branch 0215, Routine mirtazapine Yes 7.5mg 7.5 mg, Un toi (REMERON) 3-02 Oral, QHS, ity of tablet 7.5 03:00: First dose [place] mg 00 on [facility] 12/11/20 at Branch 2100, Until Discontinu ed, [...] ity of (TYLENOL 23:23: 13:49 Q6HPRN, [place] #3) 300-30 43 :08 Starting Medic al [...] 00 Fri12/11/20 Me dical cream at 1315, Kiln Until Discontinu ed, Routine hydrocortis 0 Yes [...] ity of 1,000 mg in 19:00: 17:35 PigFreedom, [place] NaCl 0.9% 00 :26 Q8H ABX, [...] ed, Routine insulin Yes 5U 5 Units, [facility] lispro 12-11 Subcutaneo ity of (human) 18:00: us, TID [place] (HumaLOG 00 MEALS, Medical U-100) First dose Branch injection 5 on Mon Units 12/11/20 at 1200, Until Discontinu ed Polyethylen Yes 17g 17 g, [facility] rs e Glycol 12-11 Oral, ity of 3350 17:47: [id number], [place] (MIRALAX) 05 Starting Medica l powder 17 g 12/11/20 Br anch at 1147, Until Discontinu ed, Routine, Constipati on acetaminoph Yes 650mg 650 mg, Un toi en 12-11 Oral, ity of (TYLENOL) 16:51: Q6HPRN, [place] tablet 650 28 Starting Medic al mg [...] 0630, STAT piperacilli No 3.375g 3.375 g, [facility] n-tazobacta 12-11 IV ity of m (ZOSYN) 12:00: 17:48 Piggyback, [place] injection 00 :24 Q6H, First Medi jose c 3.375 g dose on Branch Fri12/11/20 at 0600, Until Discontinu ed, KHALIL
Re ason for Anti-Infec tive: Empiric Therapy for Suspected Infection< br>Empiric Therapy Site: Skin / Soft tissue
Duration of therapy: 72 hours sennosides- Yes [id number] 1{tbl} Take 1 [facility] docusate 2-09 tablet by ity of sodium 00:00: mouth 2 [place] 8.6-50 mg 00 (two) Medical per tablet times Branch daily. hydrocortis Yes [id number] Apply to [facility] one 2.5 % 11-21 affected ity of cream 00:00: area(s) 2 [place] 00 (two) Medical times Branch daily. blood sugar Yes [id number] Use to [facility] diagnostic 2 check ity of (FREESTYLE 00:00: blood [place] LITE 00 glucose Medical STRIPS) 4-5 times Branch strip daily. Polyethylen Yes [id number] 17g Take 1 Univers e Glycol 2-09 Packet by ity of 3350 17 00:00: mouth [place] gram powder 00 every 24 Medi jose c (twenty-fo Branch ur) hours as needed for Constipati on. sennosides- Yes [id number] 1{tbl} Take 1 Univers docusate 2-09 tablet by ity of sodium 00:00: mouth 2 [place] 8.6-50 mg 00 (two) Medical per tablet times Branch daily. hydrocortis Yes [id number] Apply to Univers one 2.5 % 2-09 affected ity of cream 00:00: area(s) 2 [place] 00 (two) Medical times Branch daily. blood sugar Yes [id number] Use to Univers diagnostic 11-21 check ity of (FREESTYLE 00:00: blood [place] LITE 00 glucose Medical STRIPS) 4-5 times Branch strip daily. Polyethylen Yes [id number] 17g Take 1 Univers e Glycol 2-09 Packet by ity of 3350 17 00:00: mouth [place] gram powder 00 every 24 Medi joes c (twenty-fo Branch ur) hours as needed for Constipati on. sennosides- Yes [id number] 1{tbl} Take 1 Univers docusate 2-09 tablet by ity of sodium 00:00: mouth 2 [place] 8.6-50 mg 00 (two) Medical per tablet times Branch daily. hydrocortis Yes [id number] Apply to Univers one 2.5 % 2-09 affected ity of cream 00:00: area(s) 2 [place] 00 (two) Medical times Branch daily. blood sugar Yes [id number] Use to Univers diagnostic 11-21 check ity of (FREESTYLE 00:00: blood [place] LITE 00 glucose Medical STRIPS) 4-5 times Branch strip daily. Polyethylen 2020-0 Yes [id number] 17g Take 1 Univers e Glycol 2-09 Packet by ity of 3350 17 00:00: mouth [place] gram powder 00 every 24 Medi jose c (twenty-fo Branch ur) hours as needed for Constipati on. sennosides- Yes [id number] 1{tbl} Take 1 Univers docusate 2-09 tablet by ity of sodium 00:00: mouth 2 [place] 8.6-50 mg 00 (two) Medical per tablet times Branch daily. hydrocortis Yes [id number] Apply to [facility] one 2.5 % 11-21 affected ity of cream 00:00: area(s) 2 [place] 00 (two) Medical times Branch daily. blood sugar Yes [id number] Use to [facility] diagnostic 11-21 check ity of (FREESTYLE 00:00: blood [place] LITE 00 glucose Medical STRIPS) 4-5 times Branch strip daily. Polyethylen Yes [id number] 17g Take 1 Univers e Glycol 11-21 Packet by ity of 3350 17 00:00: mouth [place] gram powder 00 every 24 Medi jose c (twenty-fo Branch ur) hours as needed for Constipati on. Insulin 2020- No [id number] 15U inject 15 Univers Glargine 11-21- Units ity of (LANTUS 00:00: 05:59 [employer] SOLOSTAR 00 :00 skin every Medic al U-100 morning Branch INSULIN) for 30 100 unit/mL days. (3 mL) injection venlafaxine 2020- No [id number] 150mg Take 1 Univers XR 150 mg 11-21 capsule by ity of 24 hr 00:00: 05:59 mouth 3 [place] capsule 00 :00 (three) Medical times Branch daily for 30 days. Insulin 2020- No [id number] 15U inject 15 Univers Glargine 11-21-12 Units ity of (LANTUS 00:00: 05:59 under the [employer] SOLOSTAR 00 :00 skin every Medic al U-100 morning Branch INSULIN) for 30 100 unit/mL days. (3 mL) injection venlafaxine 2020- No [id number] 150mg Take 1 Univers XR 150 mg 11-21- capsule by ity of 24 hr 00:00: 05:59 mouth 3 [place] capsule 00 :00 (three) Medical times Branch daily for 30 days. triamcinolo 2020- No [id number] Apply to [facility] ne 11-21-04 area(s) 2 ity of acetonide 00:00: 00:00 (two) [place] 0.1 % cream 00 :00 times Medical daily. Branch cephALEXin 2020- No [id number] 1000mg Take 2 Univers 500 mg 11-21 capsules ity of capsule 00:00: 00:00 by mouth 3 [place] 00 :00 (three) Medical times Branch daily. doxycycline 2020- No [id number] 100mg Take 1 Univers hyclate 100 11-21 capsule by i ty of mg capsule 00:00: 00:00 mouth [place] 00 :00 every 12 Medical (twelve) Branch hours. lactobacill 2020- No [id number] 1{tbl} Take 1 Univers us 11-21 tablet by ity of acidophilus 00:00: 00:00 mouth 2 [place] 25 million 00 :00 (two) Medical cell -100 times Branch mg captab daily. bisacodyL 2020- No [id number] 10mg Insert 1 Univers 10 mg 11-21 Suppositor ity of suppository 00:00: 00:00 y into [place] 00 :00 rectum at Medical bedtime as Branch needed for Constipati on. ALPRAZolam 2020- No [id number] .25mg Take 1 Univers (XANAX) 11-21 tablet by ity of 0.25 mg 00:00: 00:00 mouth 2 [place] tablet 00 :00 (two) Medical times Branch daily. hydrOXYzine 2020- No [id number] 20mg Take 2 Univers 10 mg 11-21 [...] ity of 6 mg 01:13: (three) [place] capsule 36 times Medical daily. Branch Insulin 2019-10 Yes 15U inject 15 Unive rs Glargine 1-12 Units ity of (LANTUS 01:13: under the [place] SOLOSTAR) 36 skin. Medical 100 unit/mL Branch [...] ity of 6 mg 01:13: (three) [place] capsule 36 times Medical daily. Branch Insulin 2019-10 Yes 15U inject 15 Unive rs Glargine 1-12 Units ity of (LANTUS 01:13: under the [place] SOLOSTAR) 36 skin. Medical 100 unit/mL Branch [...] ity of (LANTUS 01:13: under the [place] SOLOSTAR) 36 skin. Medical 100 unit/mL Branch (3 mL) InPn INSULIN 2019-10 Yes 5U inject 5 Univer s ASPART 1-12 Units ity of (NOVOLOG 01:13: under the [facility] s FLEXPEN SC) 36 skin. Medical Branch ALPRAZolam 2019-10 Yes .25mg Take 0.25 U nivers (XANAX) 1-12 mg by ity of 0.25 mg 01:13: mouth 2 [place] tablet 36 (two) Medical times Branch daily. HYDROXYZINE 2019-10 2020- No 25mg Take 25 mg Univers PAMOATE 1-11 11-11 by mouth ity of ORAL 20:04: 00:00 daily. [place] 34 :00 Medical Branch hydrocortis 2019-10 Yes [id number] Apply to Univers one 2.5 % 1-11 affected ity of cream 00:00: area(s) 2 [place] 00 (two) Medical times Branch daily. hydrOXYzine 2019-10 Yes [id number] 20mg Take 2 Univers 10 mg 1-11 tablets by ity of tablet 00:00: mouth [place] 00 every 8 Medical (eight) Branch hours as needed for Itching or Anxiety. Polyethylen 2019-10 Yes [id number] 17g Take 1 Univers e Glycol 1-11 Packet by ity of 3350 17 00:00: mouth [place] gram powder 00 every 24 Medi jose c (twenty-fo Branch ur) hours as needed for Constipati on. hydrocortis 2019-10 Yes [id number] Apply to Univers one 2.5 % 1-11 affected ity of cream 00:00: area(s) 2 [place] 00 (two) Medical times Branch daily. hydrOXYzine 2019- Yes [id number] 20mg Take 2 Univers 10 mg 1-11 tablets by ity of tablet 00:00: mouth [place] 00 every 8 Medical (eight) Branch hours as needed for Itching or Anxiety. Polyethylen 2019- Yes [id number] 17g Take 1 Univers e Glycol 1-11 Packet by ity of 3350 17 00:00: mouth [place] gram powder 00 every 24 Medi jose c (twenty-fo Branch ur) hours as needed for Constipati on. hydrocortis 2019- Yes [id number] Apply to Univers one 2.5 % 1-11 affected ity of cream 00:00: area(s) 2 [place] (two) Medical times Branch daily. hydrOXYzine 2019-10 Yes [id number] 20mg Take 2 Univers 10 mg 1-11 tablets by ity of tablet 00:00: mouth [place] 00 every 8 Medical (eight) Branch hours as needed for Itching or Anxiety. Polyethylen 2019- Yes [id number] 17g Take 1 Univers e Glycol 1-11 Packet by ity of 3350 17 00:00: mouth [place] gram powder 00 every 24 Medi jose c (twenty-fo Branch ur) hours as needed for Constipati on. hydrocortis 2019-10 Yes [id number] Apply to Univers one 2.5 % 1-11 affected ity of cream 00:00: area(s) 2 [place] (two) Medical times Branch daily. hydrOXYzine 2019-10 Yes [id number] 20mg Take 2 Univers 10 mg 1-11 tablets by ity of tablet 00:00: mouth [place] 00 every 8 Medical (eight) Branch hours as needed for Itching or Anxiety. Polyethylen 2019-10 Yes [id number] 17g Take 1 Univers e Glycol 1-11 Packet by ity of 3350 17 00:00: mouth [place] gram powder 00 every 24 Medi jose c (twenty-fo Branch ur) hours as needed for Constipati on. hydrocortis 2019-10 Yes [id number] Apply to Univers one 2.5 % 1-11 affected ity of cream 00:00: area(s) 2 [place] 00 (two) Medical times Branch daily. hydrOXYzine 2019-10 Yes [id number] 20mg Take 2 Univers 10 mg 1-11 tablets by ity of tablet 00:00: mouth [place] 00 every 8 Medical (eight) Branch hours as needed for Itching or Anxiety. Polyethylen 2019- Yes [id number] 17g Take 1 Univers e Glycol 1-11 Packet by ity of 3350 17 00:00: mouth [place] gram powder 00 every 24 Medi jose c (twenty-fo Branch ur) hours as needed for Constipati on. hydrocortis 2019-10 Yes [id number] Apply to Univers one 2.5 % 1-11 affected ity of cream 00:00: area(s) 2 [place] 00 (two) Medical times Branch daily. hydrOXYzine 2019- Yes [id number] 20mg Take 2 Univers 10 mg 1-11 tablets by ity of tablet 00:00: mouth [place] 00 every 8 Medical (eight) Branch hours as needed for Itching or Anxiety. Polyethylen 2019- Yes [id number] 17g Take 1 Univers e Glycol 1-11 Packet by ity of 3350 17 00:00: mouth [place] gram powder 00 every 24 Medi jose c (twenty-fo Branch ur) hours as needed for Constipati on. hydrocortis 2019- Yes [id number] Apply to Univers one 2.5 % 1-11 affected ity of cream 00:00: area(s) 2 [place] 00 (two) Medical times Branch daily. hydrOXYzine 2019- Yes [id number] 20mg Take 2 Univers 10 mg 1-11 tablets by ity of tablet 00:00: mouth [place] 00 every 8 Medical (eight) Branch hours as needed for Itching or Anxiety. Polyethylen 2019- Yes [id number] 17g Take 1 Univers e Glycol 1-11 Packet by ity of 3350 17 00:00: mouth [place] gram powder 00 every 24 Medi jose c (twenty-fo Branch ur) hours as needed for Constipati on. triamcinolo 2019- 2020- No [id number] Apply to Univers ne 10-23 area(s) 2 ity of acetonide 00:00: 05:59 (two) [place] 0.1 % cream 00 :00 times Medical daily for Branch 14 days. triamcinolo 2019- 2020- No [id number] Apply to Univers ne 10-23 area(s) 2 ity of acetonide 00:00: 05:59 (two) [place] 0.1 % cream 00 :00 times Medical daily for Branch 14 days. triamcinolo 2020- 2020- No [id number] Apply to [facility] ne 10-23 area(s) 2 ity of acetonide 00:00: 05:59 (two) [place] 0.1 % cream 00 :00 times Medical daily for Branch 14 days. KCL 2019- 2020- No 40meq 40 mEq, Univers (KLOR-CON 1-10 11-10 Oral, ONCE ity of M20) tablet 16:15: 16:23 NOW, 1 [place] 40 mEq 00 :00 dose, [facility] 08/22/20 Branch at 1015, Routine HYDROmorpho 2019-10 Yes 1mg 1 mg, Unive rs ne 1-10 Oral, ity of (DILAUDID) 15:07: Q6HPRN, [place] tablet 1 mg 53 Starting [facility] 08/22/20 at 0907, Until Discontinu ed, Routine, Pain (scale 7-10) hydrocortis 2019-10 Yes Topical Uni vers one 2.5 % 1-10 (Apply To ity o f cream 02:00: Affected [place] 00 Areas), Medical BID, First Branch dose on [facility] 08/21/20 at 2000, Until Discontinu ed, Routine triamcinolo 2019-10 Yes Topical, Un toi ne 1-10 BID, First ity of acetonide 02:00: dose on [place] (TRIDERM) [facility] Medical 0.1 % cream 08/21/20 at Br anch 2000, Until Discontinu ed, Routine hydrOXYzine 2019-10 Yes 20mg 20 mg, Univ ers (ATARAX) 09 Oral, ity of tablet 20 17:39: Q8HPRN, [place] mg 12 Starting [facility] 08/21/20 at 1139, Until Discontinu ed, Routine, Itching, Anxiety sennosides- 2019-10 Yes 1{tbl} 1 tablet, Univers docusate 10-21 Oral, ity of sodium 15:00: DAILY, [place] (SENOKOT-S) 00 First dose Me dical 8.6-50 mg on [facility] per tablet 08/21/20 at 1 tablet [...] dose [place] capsule 150 00 on [facility] Medica l mg 08/21/20 at [...] 59 :43 Starting Medica l mg [facility] 08/21/20 at 0656, Until Fri08/21/20 at 1139, Routine, Itching, Mild Rash, Congestion /Allergies , alternate with hydroxyzin e hydrOXYzine 2019-10- No 10mg 10 mg, Uni vers (ATARAX) 10-21 Oral, ity of tablet 10 10:20: 12:57 Q6HPRN, [place] mg 22 :12 Starting Medical [facility] 08/21/20 at 0420, Until Fri08/21/20 at [...] For Behavioral Medicine 00 :00 08/21/20 at [facility] 0330, Branch Routine Polyethylen 2019-10 Yes 17g 17 g, [facility] Gly[facility] 10-21 Oral, ity of 3350 08:29: [id number], [place] (MIRALAX) 09 Starting Medica l powder 17 g [facility] 08/21/20 at 0229, Until Discontinu ed, Routine, Constipati on lanolin 2019-10 Yes Topical, Univer s alcohol-mo- 10-21 PRN, ity of w.pet-ce[place] 08[place]26[place] (EUCERIN[place] 30 [facility] Medical cream 08/21/20 at Branch 0226, [...] 1-3) sotalol 2019-10 2020- No Take by [facility] s (BETAPACE) 10-21 mouth ity of 240 mg 07:43: 00:00 every 12 [place] tablet 30 :00 (twelve) Medical hours. Branch blood sugar Yes Use to [facility] ers diagnostic 4-25 check ity of (FREESTYLE 00:00: blood [place] LITE 00 glucose Medical STRIPS) 4-5 times Branch strip daily. blood sugar Yes Use to [facility] ers diagnostic 4-25 check ity of (FREESTYLE 00:00: blood [place] LITE 00 glucose Medical STRIPS) 4-5 times Branch strip daily. blood sugar Yes Use to [facility] ers diagnostic 4-25 check ity of (FREESTYLE 00:00: blood [place] LITE 00 glucose Medical STRIPS) 4-5 times Branch strip daily. blood sugar Yes Use to [facility] ers diagnostic 4-25 check ity [...] 2021-08-22 13:00:00 148 mm[Hg] Univer sity of [facility] Diastolic blood 2021-08-22 13:00:00 84 mm[Hg] Unive rsity of [facility] Heart rate 2021-08-22 13:00:00 103 /min [facility] Respiratory rate 2021-08-22 13:00:00 18 /min [facility] Oxygen saturation in 2021-08-22 13:00:00 95 /min University of Arterial blood by [facility] Pulse oximetry [place] Body temperature 2021-08-22 12:22:00 36.72 [facility] Systolic blood 2020-12-17 18:35:00 139 mm[Hg] Univer sity of [facility] Diastolic blood 2020-12-17 18:35:00 87 mm[Hg] Unive rsity of [facility] Heart rate 2020-12-17 18:35:00 110 /min [facility] Body temperature 2020-12-17 18:35:00 37.72 [facility] Respiratory rate 2020-12-17 18:35:00 18 /min [facility] Oxygen saturation in 2020-12-17 18:35:00 93 /min University of Arterial blood by [facility] Pulse oximetry Branch Body height 2020-12-12 08:21:00 180.3 cm [facility] [place] [facility] Body weight 2020-12-12 08:21:00 103.42 kg [facility] [place] [facility] BMI 2020-12-12 08:21:00 31.80 kg/m2 [facility] [place] [facility] Systolic blood 2020-12-17 18:35:00 139 mm[Hg] Univer sity of pressure [place] [facility] Diastolic blood 2020-12-17 18:35:00 87 mm[Hg] Unive rsity of pressure [place] [facility] Heart rate 2020-12-17 18:35:00 110 /min [facility] [place] [facility] Body temperature 2020-12-17 18:35:00 37.72 [place] [facility] [place] [facility] Respiratory rate 2020-12-17 18:35:00 18 /min Univ ers[facility] [place] [facility] Oxygen saturation in 2020-12-17 18:35:00 93 /min University of Arterial blood by [facility] Pulse oximetry Branch Body height 2020-12-12 08:21:00 180.3 cm [facility] [place] [facility] Body weight 2020-12-12 08:21:00 103.42 kg [facility] [place] [facility] BMI 2020-12-12 08:21:00 31.80 kg/m2 [facility] [place] [facility] Systolic blood 2020-08-23 19:27:00 140 mm[Hg] Univer sity of pressure [place] [facility] Diastolic blood 2020-08-23 19:27:00 79 mm[Hg] Unive rsity of pressure [place] [facility] Heart rate 2020-08-23 19:27:00 99 /min [facility] [place] [facility] Body temperature 2020-08-23 19:27:00 36 [place] [facility] [place] [facility] Respiratory rate 2020-08-23 19:27:00 18 /min Univ ersity of [place] [facility] Oxygen saturation in 2020-08-23 19:27:00 93 /min University of Arterial blood by [facility] Pulse oximetry Branch Body weight 2020-08-21 07:20:00 104.962 kg [facility] [place] [facility] BMI 2020-08-21 07:20:00 32.27 kg/m2 [facility] [place] [facility] Systolic blood 2020-08-23 19:27:00 140 mm[Hg] Univer sity of pressure [facility] Diastolic blood 2020-08-23 19:27:00 79 mm[Hg] [facility] pressure [facility] Heart rate 2020-08-23 19:27:00 99 /min [facility] Body temperature 2020-08-23 19:27:00 36 [facility] Respiratory rate 2020-08-23 19:27:00 18 /min [facility] Oxygen saturation in 2020-08-23 19:27:00 93 /min [facility] blood by [facility] Pulse oximetry [place] Body weight 2020-08-21 07:20:00 104.962 kg [facility] BMI 2020-08-21 07:20:00 32.27 kg/m2 [facility] Procedures Procedure Date / Time Performing Clinician Source Performed POCT GLUCOSE (AUTOMATED) 2020-12-17 15:42:00 Favio Harrisonal G Uni [facility] BASIC METABOLIC PANEL 2020-12-17 10:45:00 Paul Bean [facility] (NA, K, CL, CO2, GLUCOSE, [facility] Medica l Branch BUN, CREATININE, CA) CBC WITH DIFF 2020-12-17 10:45:00 Paul Bean [facility] POCT GLUCOSE (AUTOMATED) 2020-12-17 02:36:00 Harrison [facility] Uni [facility] XR TIBIA FIBULA 2 VW LEFT 2020-12-16 23:38:00 [facility] PO[facility] GLUCOSE (AUTOMATED) 2020-12-16 23:20:00 Harrison, [facility]al [facility] PO[facility] GLUCOSE (AUTOMATED) 2020-12-16 20:10:00 Harrison, Premal [facility] POCT GLUCOSE (AUTOMATED) 2020-12-16 14:43:00 [facility] BASIC METABOLIC PANEL 2020-12-16 13:51:00 Paul Bean [facility] (NA, K, CL, CO2, GLUCOSE, [place] [facility] Branch BUN, CREATININE, CA) CBC WITH DIFF 2020-12-16 13:51:00 Paul Bean [facility] POCT GLUCOSE (AUTOMATED) 2020-12-16 04:00:00 Harrison, Premal G Uni versity of [facility] POCT GLUCOSE (AUTOMATED) 2020-12-16 00:14:00 Harrison, Premal G Uni versity [facility] [place] CT CHEST PULMONARY 2020-12-15 22:29:38 Paul Bean [facility] ANGIOGRAM [facility] POCT GLUCOSE (AUTOMATED) 2020-12-15 19:26:00 Harrison, Premal [facility] POCT GLUCOSE (AUTOMATED) 2020-12-15 15:13:00 Krupa, Premal G Uni [facility] HB ECG ROUTINE & RHYTHM 2020-12-15 14:25:27 Cailin Romo [facility] MAGNESIUM 2020-12-15 12:01:00 Paul Bean Sivakumar [facility] BASIC METABOLIC PANEL 2020-12-15 12:01:00 Paul Bean [facility] (NA, K, CL, CO2, GLUCOSE, [facility] Branch BUN, CREATININE, CA) CBC WITH DIFF 2020-12-15 12:01:00 Paul Bean [facility] POCT GLUCOSE (AUTOMATED) 2020-12-15 03:57:00 Harrison, Premal G Uni versity of [facility] POCT GLUCOSE (AUTOMATED) 2020-12-14 23:31:00 Harrison, Premal G Uni versity of [facility] POCT GLUCOSE (AUTOMATED) 2020-12-14 19:08:00 Harrison, Premal G Uni versity of [facility] POCT GLUCOSE (AUTOMATED) 2020-12-14 15:11:00 Harrison, Premal G Uni versity of [facility] POCT GLUCOSE (AUTOMATED) 2020-12-14 02:36:00 Harrison, Premal G Uni versity of [facility] POCT GLUCOSE (AUTOMATED) 2020-12-13 23:32:00 Harrison, Premal G Uni versity of [facility] POCT GLUCOSE (AUTOMATED) 2020-12-13 18:08:00 Harrison, Premal G Uni versity of [facility] BASIC METABOLIC PANEL 2020-12-13 15:39:00 Paul Bean [facility] (NA, K, CL, CO2, GLUCOSE, [place] [facility] Branch BUN, CREATININE, CA) CBC WITH DIFF 2020-12-13 15:39:00 Paul Bean [facility] POCT GLUCOSE (AUTOMATED) 2020-12-13 14:06:00 Harrison, Premal G Uni versity of [facility] POCT GLUCOSE (AUTOMATED) 2020-12-13 03:07:00 Harrison, Premal G Uni versity of [facility] POCT GLUCOSE (AUTOMATED) 2020-12-12 23:52:00 Harrison, Premal G Uni versity of [facility] POCT GLUCOSE (AUTOMATED) 2020-12-12 20:28:00 Harrison, Premal G Uni versity of [facility] POCT GLUCOSE (AUTOMATED) 2020-12-12 19:14:00 Harrison, Premal G Uni versity of [facility] POCT GLUCOSE (AUTOMATED) 2020-12-12 14:33:00 Harrison, Premal G Uni versity of [facility] MAGNESIUM 2020-12-12 08:58:00 Paul Bean [facility] BASIC METABOLIC PANEL 2020-12-12 08:58:00 Paul Bean [facility] (NA, K, CL, CO2, GLUCOSE, [facility] Branch BUN, CREATININE, CA) CBC WITH DIFF 2020-12-12 08:58:00 Paul Bean [facility] US ABDOMEN LIMITED 2020-12-12 06:32:26 Paul Bean [facility] POCT GLUCOSE (AUTOMATED) 2020-12-12 03:40:00 Harrison, Premal G Uni versity of [facility] POCT GLUCOSE (AUTOMATED) 2020-12-12 00:06:00 Harrison, Premal G Uni versity of [facility] XR HIPS 3 VW LEFT 2020-12-11 20:20:00 Paul Bean Sivakumar [facility] HB ECG ROUTINE & RHYTHM 2020-12-11 20:04:06 Demetrius [facility] STRIP [facility] VITAMIN B6, PLASMA 2020-12-11 19:17:00 [facility]ell [facility] POCT GLUCOSE (AUTOMATED) 2020-12-11 19:06:00 Vika Harrison [facility] CREATINE KINASE 2020-12-11 18:22:00 Parvez [facility] VITAMIN B12, LEVEL 2020-12-11 18:22:00 Vikas [facility] FOLATE 2020-12-11 18:22:00 [facility] THYROID STIMULATING 2020-12-11 18:22:00 Demetrius [facility] HORMONE [facility] PROCALCITONIN 2020-12-11 18:22:00 Vikas [facility] VITAMIN B1 (THIAMINE), 2020-12-11 18:22:00 [facility] WHOLE BLOOD [facility] CT HEAD WO CONTRAST 2020-12-11 14:07:35 Sweetie Stout [facility] URINALYSIS 2020-12-11 13:44:00 Singer [facility] URINE CULTURE 2020-12-11 13:44:00 Singer [facility] COVID-19 (ID NOW RAPID 2020-12-11 12:31:00 Paco Lacey [facility] TESTING) Medical Branch LAB ONLY COVID 2020-12-11 12:31:00 Singer [facility] INTERPRETATION [facility] XR CHEST 1 VW 2020-12-11 12:07:24 Singer [facility] BLOOD CULTURE SCREEN 2020-12-11 12:02:00 Paco Lacey [facility] MAGNESIUM 2020-12-11 12:02:00 Vikas [facility] FERRITIN SERUM 2020-12-11 12:02:00 Paul Bean [facility] Kaley [facility] COMP. METABOLIC PANEL 2020-12-11 12:02:00 Singer [facility] ([id number]) [facility] CBC WITH DIFF 2020-12-11 12:02:00 Singer [facility] LACTIC ACID WHOLE BLOOD 2020-12-11 12:02:00 Singer Paco [facility] BLOOD CULTURE SCREEN 2020-12-11 11:42:00 Singer Paco [facility] EMERGENCY SERVICES 2020-12-11 06:01:00 Doctor Unassigned, [facility] AGREEMENTS AND [place] [facility] [place] AUTHORIZATIONS HOSPITAL ADMISSION 2020-12-11 06:01:00 Doctor [place]aow[place], [facility] Name Medical Kiln HOME HEALTH - OTHER 2020-11-11 06:01:00 Doctor Tabitha [facility] Name Medical [place] HOME HEALTH - OTHER 2020-10-30 06:01:00 Doctor Unaowen [facility] Name Medical [place] EXTERNAL PROVIDER RECORDS 2020-09-01 06:01:00 Doctor Tabitha, [facility] Name [facility] POCT GLUCOSE (AUTOMATED) 2020-08-23 18:09:00 Kelly Washington [facility] POCT GLUCOSE (AUTOMATED) 2020-08-23 14:14:00 Kelly [place] [facility] MAGNESIUM 2020-08-23 11:18:00 Ramya [facility] BASIC METABOLIC PANEL 2020-08-23 11:18:00 [place] [facility] (NA, K, CL, CO2, GLUCOSE, Medica l Branch BUN, CREATININE, CA) CBC WITH DIFF 2020-08-23 11:18:00 [place] [facility] POCT GLUCOSE (AUTOMATED) 2020-08-23 10:21:00 Kelly Washington [facility] POCT GLUCOSE (AUTOMATED) 2020-08-23 05:55:00 Kelly Washington [facility] POCT GLUCOSE (AUTOMATED) 2020-08-23 03:00:00 Stefania [facility] PO[facility]SE (AUTOMATED) 2020-08-22 23:38:00 Bety Washingtonmarie Elias versity of [facility] POCT GLUCOSE (AUTOMATED) 2020-08-22 19:04:00 Bety Washingtonmarie [facility] POCT GLUCOSE (AUTOMATED) 2020-08-22 13:49:00 Kelly Washington Jada versity [facility] MAGNESIUM 2020-08-22 10:10:00 [facility] 2020-08-22 10:10:[address] [facility] ([id number]) (ALB,T.PRO,BILI Medical Branch T,BU/BC,ALT,AST,ALK PHOS) BASIC METABOLIC PANEL 2020-08-22 10:10:00 [facility] (NA, K, CL, CO2, GLUCOSE, Medica l Branch BUN, CREATININE, CA) LIPID PANEL ([id number])(TOTAL 2020-08-22 10:10:00 [place], [facility] CHOLESTEROL, Medical [place] TRIGLYCERIDES, HDL) CBC WITH DIFF 2020-08-22 10:10:00 [facility] POCT GLUCOSE (AUTOMATED) 2020-08-22 10:10:00 Bety Washingtonmarie Elias [facility] POCT GLUCOSE (AUTOMATED) 2020-08-22 07:13:00 Kelly Washington Jada versity [facility] POCT GLUCOSE (AUTOMATED) 2020-08-22 02:24:00 Bety Washingtonmarie Elias versity [facility] POCT GLUCOSE (AUTOMATED) 2020-08-21 23:40:00 Kelly Washington Jada versity of [facility] POCT GLUCOSE (AUTOMATED) 2020-08-21 18:10:00 Kelly Washington Jada versity [facility] POCT GLUCOSE (AUTOMATED) 2020-08-21 13:39:00 Kelly Washington Jada versity [facility] ETHANOL 2020-08-21 12:35:00 [facility] 2020-08-21 12:35:00 Stefania [facility] GALV ONLY - SYPHILIS 2020-08-21 12:35:00 Stefania [facility] IGG/IGM [facility] LACTATE DEHYDROGENASE 2020-08-21 10:09:00 Ramya, [facility] GALV/CLC ONLY - URINE 2020-08-21 10:09:00 Richie [facility] DRUG (IMMUNOASSAY) - 4 ER Medica l Branch PANEL URINALYSIS 2020-08-21 10:09:00 Ramya, [facility] URINE CULTURE 2020-08-21 10:09:00 Ramya, [facility] PROCALCITONIN 2020-08-21 10:09:00 [place], [facility] POCT GLUCOSE (AUTOMATED) 2020-08-21 09:41:00 Stefania Kelly [facility] PROTHROMBIN TIME / INR 2020-08-21 08:32:00 [place], [facility] ACTIVATED PARTIAL 2020-08-21 08:32:00 [place], [facility] C-REACTIVE PROTEIN 2020-08-21 08:31:00 Ramya, [facility] HEPATIC FUNCTION PANEL 2020-08-21 08:31:00 [place], [facility] ([id number]) (ALB,T.PRO,BILI Medical Branch T,BU/BC,ALT,AST,ALK PHOS) BASIC METABOLIC PANEL 2020-08-21 08:31:00 [place], [facility] (NA, K, CL, CO2, GLUCOSE, [facility] BUN, CREATININE, CA) SEDIMENTATION RATE 2020-08-21 08:31:00 [place], [facility] CBC WITH DIFF 2020-08-21 08:31:00 [place], [facility] GLYCOSYLATED HEMOGLOBIN 2020-08-21 08:31:00 [place], [facility] (A1C) Medical Branch HIV 1/2 AG-AB WITH REFLEX 2020-08-21 08:31:00 Kelly [place] [facility] [place] [facility] COVID-19 (ID NOW RAPID 2020-08-21 08:20:00 [facility] TESTING) Medical Branch LAB ONLY COVID 2020-08-21 08:20:00 [place] [facility] [place] INTERPRETATION [facility] Branch Encounters Start End Encounter Admission Attending Care Care Encounter Source Date/Time Date/Time Type Type Clinicians Facility Department ID 2020-08-21 Inpatient U [facility] [id number] Univers 01:07:00 KELLY brandenana [facility] [place] 2021-08-22 2021-08-22 Emergency [facility] [id number] Univers 06:21:00 08:02:00 SWEETIE cantu [facility] [place] 2021-08-22 2021-08-22 Emergency [facility] [id number] Univers 06:21:00 08:02:00 Sweetie LOTT [id number] i ty of [place] [id number] [facility] 084 Branch 2021-08-09 2021-08-09 Outpatient JACQUELYN [facility]ES [facility] [id number] [facility] 10:27:03 10:27:03 ADRIANA lopez of Medicin e 2020-12-28 2020-12-28 Telephone [facility] [id number] 00:00:00 00:00:00 Calvin H PRIMARY [id number] CARE 4.2.7.2.686 PAVILLION [id number] 220 2020-12-28 2020-12-28 Telephone [facility] 1.2.840.114 [id number] Univers 00:00:00 00:00:00 Calvin H PRIMARY [id number] it y of C[place]2.[place] [id number] Mo dical 220 Branch 2020-12-19 2020-12-19 Transition Tuan Peters 1.2.840.114 [id number] 00:00:00 00:00:00 of Care Ruchi Braswell [id number] [place] 4.2.7.2.686 [id number] 403 2020-12-19 2020-12-19 Transition Tuan Peters 1.2.840.114 [id number] Univers 00:00:00 00:00:00 of Care Ruchi [place]well [id number] [place] [id number] [facility] 403 Branch 2020-12-11 2020-12-17 [facility] Paco Lacey 1.2.840.1 [id number] 05:11:00 16:00:00 Encounter Vika [place] [id number] [facility] 4.2.7.2.686 [id number] [facility] 2020-12-11 2020-12-17 [facility] Paco Lacey 1.2.840.1 [id number] [facility] 05:11:00 16:00:00 Encounter Vika Harrison [place] [id number] ity [facility] 4.2.7.[address] [place] [address] [id number] [facility] 096 Branch 2020-12-11 2020-12-17 Inpatient X [facility] [id number] Univers 05:11:00 16:00:00 pepe [facility] [place] 2020-11-16 2020-11-16 Emergency X [facility] ERT [id number] [facility] 09:31:00 09:31:00 PACO cantu [facility] [place] 2020-11-11 2020-11-11 Orders Doctor CUI 1.2.840.114 [id number] 00:00:00 00:00:00 Only UnassignedMONIQUE 350.1.13.10 [place] [facility] 4.2.7.2.686 [id number] 2020-11-11 2020-11-11 Orders Doctor CUI 1.2.840.114 [id number] [facility] 00:00:00 00:00:00 Only Unassigned, MONIQUE 350.1.13.10 ity of [place] [facility] 4.2.7.2.686 Jeff as [id number] [address] 2020-11-07 2020-11-07 [facility] [id number] 00:00:00 00:00:00 Angi Lott 350.1.13.10 [place] 4.2.7.2.686 Professio [id number] [address] 2020-11-07 2020-11-07 Telephone [facility] [id number] [facility] 00:00:00 00:00:00 Angi Lott 350.1.13.10 ity of [place].2.[place] Profess[place] [id number] Mo dic[address] 2020-10-30 2020-10-30 Orders Doctor BASILIA 1.2.840.114 [id number] 00:00:00 00:00:00 Only Unassigned, MONIQUE 350.1.13.10 [place] [facility] 4.2.7.2.686 [id number] [facility] 2020-10-30 2020-10-30 Orders Doctor BASILIA 1.2.840.114 [id number] [facility] 00:00:00 00:00:00 Only Unassigned, MONIQUE 350.1.13.10 ity of [place] [facility] 4.2.7.2.686 Jeff as [id number] [address] 2020-09-26 2020-09-26 Telephone Eliot [facility] 1.2.840.114 [id number] 00:00:00 00:00:00 [facility] 350.1.13.10 CLINICS 4.2.7.2.686 [id number] [facility] 2020-09-26 2020-09-26 Telephone Eliot [facility] 1.2.840.114 [id number] [facility] 00:00:00 00:00:00 [facility] 350.1.13.10 i ty of CLINICS [place].2.[place] [id number] [address] 2020-09-01 2020-09-01 Orders Doctor BASILIA 1.2.840.114 [id number] 00:00:00 00:00:00 Only Unassigned, MONIQUE 350.1.13.10 [place] [facility] 4.2.7.2.686 [id number] [id number] 2020-09-01 2020-09-01 Orders Doctor BASILIA 1.2.840.114 [id number] Univers 00:00:00 00:00:00 Only Unassigned, MONIQUE 350.1.13.10 ity of [place] [facility] 4.2.7.2.686 Jeff as [id number] [facility] 009 Branch 2020-08-25 2020-08-25 Transition Tuan Peters 1.2.840.114 [id number] 00:00:00 00:00:00 of Care Ruchi Braswell 350.1.13.10 [place] 4.2.7.2.686 [id number] 2020-08-25 2020-08-25 Transition Tuan Peters 1.2.840.114 [id number] Univers 00:00:00 00:00:00 of Care Ruchi Braswell 350.1.13.10 it y of [place]2.7.2.[place] [id number] [facility] 403 Kiln 2020-08-21 2020-08-23 [facility] Ayleen 1.2.840.114 [id number] 01:07:00 18:35:00 Encounter Kelly Monique 350.1.13.10 [facility] 4.2.7.2.686 [id number] [facility] 2020-08-21 2020-08-23 [facility] 1. 2.840.114 [id number] [facility] 01:07:00 18:35:00 Encounter Mukul Gallardo 350.1.13. 10 ity of [facility] 4.2.7.2.686 Jeff as [id number] [address] Results Test Description Test Time Test Comments Results Result Comments Source POCT GLUCOSE (AUTOMATED) 2020-12-17 15:43:35 Test Item Value Reference Range Interpretation Comme nts POCT GLU (test code = 4483071072) 129 mg/dL 70-110 H Lab Interpretation (test code = 55057-7) Abnormal [facility] [place] [facility] METABOLIC [facility] (NA, K, CL, CO2, GLUCOSE, BUN, CREATININE, CA)2020-12-17 11:45:07 Test Item Value Reference Range Interpretation Comments NA (test code = 137 mmol/L 135-145 9878849030) K (test code = 3.5 mmol/L 3.5-5.0 0911476978) CL (test code = 103 mmol/L 98-108 2920412609) CO2 TOTAL (test code = 26 mmol/L 23-31 1841018015) AGAP (test code = 2-16 5884585036) BUN (test code = 11 mg/dL 7-23 0192695429) GLUCOSE (test code = 175 mg/dL 70-110 H 8905623703) CREATININE (test code = 0.62 mg/dL 0.60-1.25 1738349160) CALCIUM (test code = 9.0 mg/dL 8.6-10.6 7379475616) eGFR Calculation mL/min/1.73m2 (Non-) (test code = 9719759622) eGFR Calculation mL/min/1.73m2 () (test code = 3821989974) JAMES (test code = JAMES) Association of [...] tests). Lab Interpretation Abnormal (test code = 63273-6) [facility] WITH [id number] 11:07:27 Test Item Value Reference Range Interpretation [...] RDW-SD (test code = 45.2 fL 38.5-51.6 66182-5) RDW-CV (test code = 16.9 % 12.1-15.4 H 788-0) PLT (test code = See_Comment H [Automated 777-3) message] The sy stem which generated this result transmitted reference range : 150 - 328 10*3/ ?L. The reference r torito was not used to interpret this result as normal/abnormal . MPV (test code = 8.1 fL 9.8-13.0 L 27247-2) NRBC/100 WBC (test See_Comment [Automat ed code = 2882066820) message] The system which generated this result transmitted reference range : 0.0 - 10.0 /100 WBCs. The refer ence range was not u sed to interpret th is result as normal/abnormal . NRBC x10^3 (test code <0.01 See_Comment [Auto mated = 3837025592) message] The s ystem which generated this result transmitted reference range : 10*3/?L. The reference range was not used to interpret this result as normal/abnormal . GRAN MAT (NEUT) % 72.8 % (test code = 770-8) IMM GRAN % (test code 0.60 % = 3739307230) LYMPH % (test code = 18.4 % 736-9) MONO % (test code = 5.7 % 5905-5) EOS % (test code = 1.8 % 713-8) BASO % (test code = 0.7 % 706-2) GRAN MAT x10^3(ANC) 8.23 10*3/uL 1.99-6.95 H (test code = 1964585832) IMM GRAN x10^3 (test 0.07 10*3/uL 0.00-0.06 H code = 7138843130) LYMPH x10^3 (test code 2.08 10*3/uL 1.09-3.23 = 731-0) MONO x10^3 (test code 0.65 10*3/uL 0.36-1.02 = 742-7) EOS x10^3 (test code = 0.20 10*3/uL 0.06-0.53 711-2) BASO x10^3 (test code 0.08 10*3/uL 0.01-0.09 = 704-7) Lab Interpretation Abnormal (test code = 32831-5) [facility]2020-12-17 06:03:38 Test Item Value Reference Range Interpretation Comments POCT GLU (test code = 7995129293) 75 mg/dL 70-110 Lab Interpretation (test code = Normal 83304-2) [facility] ResourcesVITAMIN B6, [id number] 00:01:00 Test Item Value Reference Range Interpretation Comments VIT B6 (test code = 13.1 nmol/L 20.0-125.0 L INTERPRE TIVE 47005-2) INFORMATION: Vi tamin B6 (Pyridoxal 5-Phosphate) Pyridoxal [...] intended for cl inical purposes.Perfor med By: [employer] [place] [id number] Director: Namrata Klein MD Lab Interpretation Abnormal (test code = 48428-5) [facility] ResourcesXR TIBIA FIBULA 2 VW [id number] 23:57:09 Tricompartmental knee joint osteoarthrosis.XR TIBIA FIBULA [...] No acute fracture or dislocation.IMPRESSIONTricompartmental knee joint osteoarthrosis.[facility] GLUCOSE (AUTOMATED) 2020-12-16 23:27:00 Test Item Value Reference Range Interpretation Comments POCT GLU (test code = 5286352824) 114 mg/dL 70-110 H Lab Interpretation (test code = Abnormal 45357-1) [facility] GLUCOSE (AUTOMATED)2020-12-16 20:12:00 Test Item Value Reference Range Interpretation Comments POCT GLU (test code = 6814897660) 105 mg/dL 70-110 Lab Interpretation (test code = Normal 06729-2) [facility] GLUCOSE (AUTOMATED)2020-12-16 14:44:00 Test Item Value Reference Range Interpretation Comments POCT GLU (test code = 9529199690) 153 mg/dL 70-110 H Lab Interpretation (test code = Abnormal 25792-4) [facility] METABOLIC PANEL (NA, K, CL, CO2, GLUCOSE, BUN, CREATININE, CA)2020-12-16 14:23:00 Test Item Value Reference Range Interpretation Comments NA (test code = 138 mmol/L 135-145 7372018012) K (test code = 3.4 mmol/L 3.5-5.0 L 7742511844) CL (test code = 100 mmol/L 98-108 2050684786) CO2 TOTAL (test code = 31 mmol/L 23-31 2740971315) AGAP (test code = 2-16 6033185736) BUN (test code = 11 mg/dL 7-23 3406428447) GLUCOSE (test code = 162 mg/dL 70-110 H 8231936854) CREATININE (test code = 0.64 mg/dL 0.60-1.25 5055915846) CALCIUM (test code = 8.9 mg/dL 8.6-10.6 7671830395) eGFR Calculation mL/min/1.73m2 (Non-) (test code = 5002629259) eGFR Calculation mL/min/1.73m2 () (test code = 0105216389) JAMES (test code = JAMES) Association of [...] tests). Lab Interpretation Abnormal (test code = 02427-1) [facility] WITH [id number] 14:05:00 Test Item Value Reference Range Interpretation [...] RDW-SD (test code = 45.4 fL 38.5-51.6 45741-1) RDW-CV (test code = 17.0 % 12.1-15.4 H 788-0) PLT (test code = See_Comment H [Automated 777-3) message] The sy stem which generated this result transmitted reference range : 150 - 328 10*3/ ?L. The reference r torito was not used to interpret this result as normal/abnormal . MPV (test code = 8.0 fL 9.8-13.0 L 62363-1) NRBC/100 WBC (test See_Comment [Automat ed code = 1950706821) message] The system which generated this result transmitted reference range : 0.0 - 10.0 /100 WBCs. The refer ence range was not u sed to interpret th is result as normal/abnormal . NRBC x10^3 (test code <0.01 See_Comment [Auto mated = 6704299983) message] The s ystem which generated this result transmitted reference range : 10*3/?L. The reference range was not used to interpret this result as normal/abnormal . GRAN MAT (NEUT) % 70.0 % (test code = 770-8) IMM GRAN % (test code 0.70 % = 2999520964) LYMPH % (test code = 20.5 % 736-9) MONO % (test code = 7.1 % 5905-5) EOS % (test code = 1.0 % 713-8) BASO % (test code = 0.7 % 706-2) GRAN MAT x10^3(ANC) 9.44 10*3/uL 1.99-6.95 H (test code = 7351138257) IMM GRAN x10^3 (test 0.09 10*3/uL 0.00-0.06 H code = 6812903155) LYMPH x10^3 (test code 2.76 10*3/uL 1.09-3.23 = 731-0) MONO x10^3 (test code 0.96 10*3/uL 0.36-1.02 = 742-7) EOS x10^3 (test code = 0.13 10*3/uL 0.06-0.53 711-2) BASO x10^3 (test code 0.10 10*3/uL 0.01-0.09 H = 704-7) Lab Interpretation Abnormal (test code = 69362-3) [facility] ResourcesBlood Culture - Peripheral # [id number] 13:01:00 Test Item Value Reference Range Interpretation Comments Blood Culture-Aerobic No organisms No growth Previo us (test code = 71591-2) isolated prelim inary verified result was Culture In Progress on 12/11/2020 at 100 1 CSTPrevious preliminary verified result was No growth a t 24 hours on 12/12/2020 at 070 1 CSTPrevious preliminary verified result was No growth a t 48 hours on 12/13/2020 at 070 1 CSTPrevious preliminary verified result was No growth a t 72 hours on 12/14/2020 at 070 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 No organisms No growth Previous Culture-Anaerobic isolated preliminar y (test code = 10353-8) verifi ed result was Culture In Progress on 12/11/2020 at 100 1 CSTPrevious preliminary verified result was No growth a t 24 hours on 12/12/2020 at 070 1 CSTPrevious preliminary verified result was No growth a t 48 hours on 12/13/2020 at 070 1 CSTPrevious preliminary verified result was No growth a t 72 hours on 12/14/2020 at 070 1 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 Lab Interpretation Normal (test code = 58832-0) [facility] Culture - Peripheral # [id number] 13:01:00 Test Item Value Reference Range Interpretation Comments Blood Culture-Aerobic No organisms No growth Previo us (test code = 21943-8) isolated prelim inary verified result was Culture In Progress on 12/11/2020 at 100 1 CSTPrevious preliminary verified result was No growth a t 24 hours on 12/12/2020 at 070 1 CSTPrevious preliminary verified result was No growth a t 48 hours on 12/13/2020 at 070 1 CSTPrevious preliminary verified result was No growth a t 72 hours on 12/14/2020 at 070 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 No organisms No growth Previous Culture-Anaerobic isolated preliminar y (test code = 95105-1) verifi ed result was Culture In Progress on 12/11/2020 at 100 1 CSTPrevious preliminary verified result was No growth a t 24 hours on 12/12/2020 at 070 1 CSTPrevious preliminary verified result was No growth a t 48 hours on 12/13/2020 at 070 1 CSTPrevious preliminary verified result was No growth a t 72 hours on 12/14/2020 at 070 1 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 Lab Interpretation Normal (test code = 52766-6) [facility] GLUCOSE (AUTOMATED)2020-12-16 04:01:00 Test Item Value Reference Range Interpretation Comments POCT GLU (test code = 5901480315) 156 mg/dL 70-110 H Lab Interpretation (test code = Abnormal 29533-7) [facility])2020-12-16 00:24:00 Test Item Value Reference Range Interpretation Comments POCT GLU (test code = 6212553410) 115 mg/dL 70-110 H Lab Interpretation (test code = Abnormal 87484-1) [facility] CHEST PULMONARY [id number] 23:34:55No pulmonary emboli. No interval change in [...] stableappearance of intra and extrahepatic biliary ductal dilatation.[facility] GLUCOSE (AUTOMATED)2020-12-15 19:28:00 Test Item Value Reference Range Interpretation Comments POCT GLU (test code = 3701680249) 140 mg/dL 70-110 H Lab Interpretation (test code = Abnormal 60368-0) [facility] ResourcesMAGNESIUM2021-03-05 15:26:00 Test Item Value Reference Range Interpretation Comments MAGNESIUM (test code = 8898877530) 2.2 mg/dL 1.7-2.4 Lab Interpretation (test code = Normal 58688-0) [facility] GLUCOSE (AUTOMATED)2020-12-15 15:15:00 Test Item Value Reference Range Interpretation Comments POCT GLU (test code = 4098591798) 181 mg/dL 70-110 H Lab Interpretation (test code = Abnormal 99306-1) [facility] METABOLIC PANEL (NA, K, CL, CO2, GLUCOSE, BUN, CREATININE, CA)2020-12-15 13:07:00 Test Item Value Reference Range Interpretation Comments NA (test code = 136 mmol/L 135-145 2080049897) K (test code = 3.6 mmol/L 3.5-5.0 0155166113) CL (test code = 96 mmol/L 98-108 L 4251617749) CO2 TOTAL (test code = 29 mmol/L 23-31 3894212741) AGAP (test code = 2-16 6058746797) BUN (test code = 12 mg/dL 7-23 4484469700) GLUCOSE (test code = 183 mg/dL 70-110 H 3456872489) CREATININE (test code = 0.70 mg/dL 0.60-1.25 3260459106) CALCIUM (test code = 9.2 mg/dL 8.6-10.6 2198929468) eGFR Calculation mL/min/1.73m2 (Non-) (test code = 2665548985) eGFR Calculation mL/min/1.73m2 () (test code = 1561628886) JAMES (test code = JAMES) Association of [...] tests). Lab Interpretation Abnormal (test code = 19958-0) [facility] WITH [id number] 12:32:00 Test Item Value Reference Range Interpretation [...] RDW-SD (test code = 44.4 fL 38.5-51.6 09439-4) RDW-CV (test code = 17.7 % 12.1-15.4 H 788-0) PLT (test code = See_Comment H [Automated 777-3) message] The system which generated this result transmit ronan reference range : 150 - 328 10*3/ ?L. The reference range was not u sed to interpret th is result as normal/abnormal . MPV (test code = 8.1 fL 9.8-13.0 L 43592-6) NRBC/100 WBC (test See_Comment [Automat ed code = 7743497060) message] The system which generated this result transmit ronan reference range : 0.0 - 10.0 /100 WBCs. The reference range was not used to interpret this result as normal/abnormal . NRBC x10^3 (test code <0.01 See_Comment [Auto mated = 1787187084) message] The system which generated this result transmit ronan reference range : 10*3/?L. The reference range was not used to interpret this result as normal/abnormal . GRAN MAT (NEUT) % 74.5 % (test code = 770-8) IMM GRAN % (test code 0.70 % = 1196987351) LYMPH % (test code = 17.4 % 736-9) MONO % (test code = 6.8 % 5905-5) EOS % (test code = 0.2 % 713-8) BASO % (test code = 0.4 % 706-2) GRAN MAT x10^3(ANC) 11.99 10*3/uL 1.99-6.95 H (test code = 7399274187) IMM GRAN x10^3 (test 0.11 10*3/uL 0.00-0.06 H code = 7486943710) LYMPH x10^3 (test code 2.80 10*3/uL 1.09-3.23 = 731-0) MONO x10^3 (test code 1.10 10*3/uL 0.36-1.02 H = 742-7) EOS x10^3 (test code = 0.03 10*3/uL 0.06-0.53 L 711-2) BASO x10^3 (test code 0.06 10*3/uL 0.01-0.09 = 704-7) Lab Interpretation Abnormal (test code = 74072-5) [facility] GLUCOSE (AUTOMATED)2020-12-15 04:16:00 Test Item Value Reference Range Interpretation Comments POCT GLU (test code = 5651862943) 200 mg/dL 70-110 H Lab Interpretation (test code = Abnormal 07930-2) [facility] ResourcesVITAMIN B1 (THIAMINE), WHOLE [id number] 00:30:00 Test Item Value Reference Range Interpretation Comments Vitamin B1, Whole 136 nmol/L 70-180 INTERPRETI VE INFORMATION: Blood (test code = Vitamin B 1, Whole Blood 44948-9) This assay júnior ures the concentration o [...] clinical purposes.Perfor med By: [facility] [address] [place], [place] [address]O aboratory Director: Namrata Klein MD [facility] GLUCOSE (AUTOMATED)2020-12-14 23:35:00 Test Item Value Reference Range Interpretation Comments POCT GLU (test code = 7775597516) 151 mg/dL 70-110 H Lab Interpretation (test code = Abnormal 79204-6) [facility] GLUCOSE (AUTOMATED)2020-12-14 19:19:00 Test Item Value Reference Range Interpretation Comments POCT GLU (test code = 7681185863) 193 mg/dL 70-110 H Lab Interpretation (test code = Abnormal 68924-3) [facility] GLUCOSE (AUTOMATED)2020-12-14 15:22:00 Test Item Value Reference Range Interpretation Comments POCT GLU (test code = 1020805975) 221 mg/dL 70-110 H Lab Interpretation (test code = Abnormal 58495-5) [facility] GLUCOSE (AUTOMATED)2020-12-14 02:37:00 Test Item Value Reference Range Interpretation Comments POCT GLU (test code = 8426271402) 210 mg/dL 70-110 H Lab Interpretation (test code = Abnormal 88105-4) [facility] GLUCOSE (AUTOMATED)2020-12-13 23:33:00 Test Item Value Reference Range Interpretation Comments POCT GLU (test code = 7098173708) 182 mg/dL 70-110 H Lab Interpretation (test code = Abnormal 63043-6) [facility] GLUCOSE (AUTOMATED)2020-12-13 18:09:00 Test Item Value Reference Range Interpretation Comments POCT GLU (test code = 0237345702) 150 mg/dL 70-110 H Lab Interpretation (test code = Abnormal 72182-1) [facility] METABOLIC PANEL (NA, K, CL, CO2, GLUCOSE, BUN, CREATININE, CA)2020-12-13 16:27:00 Test Item Value Reference Range Interpretation Comments NA (test code = 136 mmol/L 135-145 5319222989) K (test code = 3.7 mmol/L 3.5-5.0 4510161800) CL (test code = 96 mmol/L 98-108 L 1022742507) CO2 TOTAL (test code = 29 mmol/L 23-31 0604720640) AGAP (test code = 2-16 6419225538) BUN (test code = 6 mg/dL 7-23 L 8410845505) GLUCOSE (test code = 212 mg/dL 70-110 H 5103582789) CREATININE (test code = 0.61 mg/dL 0.60-1.25 2283477687) CALCIUM (test code = 9.5 mg/dL 8.6-10.6 7002273267) eGFR Calculation mL/min/1.73m2 (Non-) (test code = 2459248288) eGFR Calculation mL/min/1.73m2 () (test code = 3298834227) JAMES (test code = JAMES) Association of [...] tests). Lab Interpretation Abnormal (test code = 06698-9) [facility] WITH [id number] 16:10:00 Test Item Value Reference Range Interpretation [...] RDW-SD (test code = 43.3 fL 38.5-51.6 93655-5) RDW-CV (test code = 16.2 % 12.1-15.4 H 788-0) PLT (test code = See_Comment H [Automated 777-3) message] The sy stem which generated this result transmitted reference range : 150 - 328 10*3/ ?L. The reference r torito was not used to interpret this result as normal/abnormal . MPV (test code = 8.2 fL 9.8-13.0 L 48572-4) NRBC/100 WBC (test See_Comment [Automat ed code = 4463184423) message] The system which generated this result transmitted reference range : 0.0 - 10.0 /100 WBCs. The refer ence range was not u sed to interpret th is result as normal/abnormal . NRBC x10^3 (test code <0.01 See_Comment [Auto mated = 1944953141) message] The s ystem which generated this result transmitted reference range : 10*3/?L. The reference range was not used to interpret this result as normal/abnormal . GRAN MAT (NEUT) % 86.2 % (test code = 770-8) IMM GRAN % (test code 0.70 % = 9645113218) LYMPH % (test code = 10.2 % 736-9) MONO % (test code = 2.5 % 5905-5) EOS % (test code = 0.1 % 713-8) BASO % (test code = 0.3 % 706-2) GRAN MAT x10^3(ANC) 9.61 10*3/uL 1.99-6.95 H (test code = 6584281003) IMM GRAN x10^3 (test 0.08 10*3/uL 0.00-0.06 H code = 6310336352) LYMPH x10^3 (test code 1.14 10*3/uL 1.09-3.23 = 731-0) MONO x10^3 (test code 0.28 10*3/uL 0.36-1.02 L = 742-7) EOS x10^3 (test code = <0.03 0.06-0.53 L 711-2) BASO x10^3 (test code 0.03 10*3/uL 0.01-0.09 = 704-7) Lab Interpretation Abnormal (test code = 11997-5) [facility]2020-12-13 14:16:00 Test Item Value Reference Range Interpretation Comments POCT GLU (test code = 9345877083) 236 mg/dL 70-110 H Lab Interpretation (test code = Abnormal 19029-1) [facility] ResourcesLAB ONLY COVID [id number] 04:58:00COVID DMT InterpretationInterpretation/Recommendations: Molecular NAAT Tests for [...] record. [facility] SERVICESCOVID DfacuocMGKK-UvP-4 Rapid ID NOW (no units) ? ? Date ? Value ? 12/11/2020 ? Not Detected ? ? ? 11/16/2020 ? Not Detected ? ? ? 08/21/2020 ? Not Detected ? [facility]Un[facility] 2020-12-13 03:11:00 Test Item Value Reference Range Interpretation Comments POCT GLU (test code = 4500120998) 171 mg/dL 70-110 H Lab Interpretation (test code = Abnormal 79148-1) [facility] GLUCOSE (AUTOMATED)2020-12-13 00:00:00 Test Item Value Reference Range Interpretation Comments POCT GLU (test code = 9447866431) 118 mg/dL 70-110 H Lab Interpretation (test code = Abnormal 60337-9) [facility] GLUCOSE (AUTOMATED)2020-12-12 20:29:00 Test Item Value Reference Range Interpretation Comments POCT GLU (test code = 0058386629) 173 mg/dL 70-110 H Lab Interpretation (test code = Abnormal 71347-5) [facility] ResourcesUS ABDOMEN [id number] 19:56:17 1. ?Hepatic steatosis. However, limited evaluation [...] main portal veinwasevaluated with color Doppler imaging. Junior Accountant Bookkeeper images were obtainedfor the record. COMPARISON: Ultrasound [...] normal where visualized. SPLEEN:No images were obtained. [facility], Radiant Results Inft User - 12/12/2020 1:57 PM CSTEXAM: US ABDOMEN LIMITEDHISTORY: 70 years-old male with RUQ ultrasound to assess for common bileduct dilation .TECHNIQUE: Limited abdominal ultrasound focused on the liver, biliarysystem, pancreas, and spleen was performed. The main portal vein wasevaluated with color Doppler imaging. Junior Accountant Bookkeeper images wereobtainedfor the record.COMPARISON: Ultrasound abdomen 11/17/2028. [...] reviewed this study and agree with the abovereport.[facility])2020-12-12 19:24:00 Test Item Value Reference Range Interpretation Comments POCT GLU (test code = 7090266670) 230 mg/dL 70-110 H Lab Interpretation (test code = Abnormal 38391-9) [facility] ResourcesXR CHEST 1 [id number] 15:16:46 Low lung volumes with mild perihilar [...] reviewed this study and agree with theabove report.[facility])2020-12-12 14:34:00 Test Item Value Reference Range Interpretation Comments POCT GLU (test code = 2427094770) 225 mg/dL 70-110 H Lab Interpretation (test code = Abnormal 63745-1) [facility] ResourcesURINE [id number] 13:28:00 Test Item Value Reference Range Interpretation Comments URINE CULTURE (test < 10,000 CFU/mL mixed code = 630-4) aerobic organisms - suggests endogenous microbial contamination [facility] ResourcesBasic Metabolic Panel (NA, K, CL, CO2, GLUCOSE, BUN, CREATININE, CA)2020-12-12 10:05:00 Test Item Value Reference Range Interpretation Comments NA (test code = 136 mmol/L 135-145 2012366124) K (test code = 3.5 mmol/L 3.5-5.0 8648960717) CL (test code = 100 mmol/L 98-108 6125020790) CO2 TOTAL (test code = 31 mmol/L 23-31 7267526734) AGAP (test code = 2-16 9984264428) BUN (test code = 7 mg/dL 7-23 9886263011) GLUCOSE (test code = 259 mg/dL 70-110 H 3532553920) CREATININE (test code = 0.63 mg/dL 0.60-1.25 2619992851) CALCIUM (test code = 8.5 mg/dL 8.6-10.6 L 5441129507) eGFR Calculation mL/min/1.73m2 (Non-) (test code = 4854914765) eGFR Calculation mL/min/1.73m2 () (test code = 5631598414) JAMES (test code = JAMES) Association of [...] tests). Lab Interpretation Abnormal (test code = 44154-4) [facility] ResourcesMagnesium [id number] 10:05:00 Test Item Value Reference Range Interpretation Comments MAGNESIUM (test code = 4830893539) 1.9 mg/dL 1.7-2.4 Lab Interpretation (test code = Normal 68361-8) [facility] with [id number] 09:48:00 Test Item Value Reference Range Interpretation Comments WBC (test code = See_Comment [Automated 7705-2) message] The sy stem which generated this result transmitted reference range : 4.20 - 10.70 10*3/?L. The reference range was not used to interpret this result as normal/abnormal . RBC (test code = See_Comment [Automated 681-2) message] The sy stem which generated this [...] RDW-SD (test code = 46.0 fL 38.5-51.6 02259-6) RDW-CV (test code = 16.1 % 12.1-15.4 H 788-0) PLT (test code = See_Comment H [Automated 777-3) message] The sy stem which generated this result transmitted reference range : 150 - 328 10*3/ ?L. The reference r torito was not used to interpret this result as normal/abnormal . MPV (test code = 8.6 fL 9.8-13.0 L 23061-8) NRBC/100 WBC (test See_Comment [Automat ed code = 2072819476) message] The system which generated this result transmitted reference range : 0.0 - 10.0 /100 WBCs. The refer ence range was not u sed to interpret th is result as normal/abnormal . NRBC x10^3 (test code <0.01 See_Comment [Auto mated = 1482937421) message] The s ystem which generated this result transmitted reference range : 10*3/?L. The reference range was not used to interpret this result as normal/abnormal . GRAN MAT (NEUT) % 70.2 % (test code = 770-8) IMM GRAN % (test code 0.30 % = 3349353331) LYMPH % (test code = 18.8 % 736-9) MONO % (test code = 5.0 % 5905-5) EOS % (test code = 5.2 % 713-8) BASO % (test code = 0.5 % 706-2) GRAN MAT x10^3(ANC) 6.05 10*3/uL 1.99-6.95 (test code = 5692878441) IMM GRAN x10^3 (test 0.03 10*3/uL 0.00-0.06 code = 5839042857) LYMPH x10^3 (test code 1.62 10*3/uL 1.09-3.23 = 731-0) MONO x10^3 (test code 0.43 10*3/uL 0.36-1.02 = 742-7) EOS x10^3 (test code = 0.45 10*3/uL 0.06-0.53 711-2) BASO x10^3 (test code 0.04 10*3/uL 0.01-0.09 = 704-7) Lab Interpretation Abnormal (test code = 10610-8) [facility]PO[facility]SE (AUTOMATED)2020-12-12 03:42:00 Test Item Value Reference Range Interpretation Comments POCT GLU (test code = 196 mg/dL 70-110 H Notifi ed Provider 0417126744) Lab Interpretation (test Abnormal code = 40656-3) [facility] ResourcesFOLATE2021-03-02 02:24:00 Test Item Value Reference Range Interpretation Comments FOLATE SER (test code = 9258262314) 5.8 ng/mL 3.0-20.0 Lab Interpretation (test code = Normal 23686-6) [facility] ResourcesVITAMIN B12, [id number] 00:55:00 Test Item Value Reference Range Interpretation Comments VIT B12 (test code = 844 pg/mL 240-930 8919766253) JAMES (test code = JAMES) Biotin has been reported to cause a positive bias, interpret results relative to patient's use of biotin. Lab Interpretation (test Normal code = 39617-1) [facility] GLUCOSE (AUTOMATED)2020-12-12 00:14:00 Test Item Value Reference Range Interpretation Comments POCT GLU (test code = 3810755053) 164 mg/dL 70-110 H Lab Interpretation (test code = Abnormal 89690-2) [facility] ResourcesCREATINE [id number] 23:42:00 Test Item Value Reference Range Interpretation Comments CK (test code = 4346970833) <20 33-194 L Lab Interpretation (test code = Abnormal 55903-7) [facility] ResourcesTHYROID STIMULATING [id number] 23:17:00 Test Item Value Reference Range Interpretation Comments TSH (test code = See_Comment Biotin has been 3706120899) reported to cau se a negative bias, interpret resul ts relative to johnny bills's use of biotin. [Automated mess age] The system [employer] generated this result transmitted ref erence range: 0.45 - 4 .70 mIU/L. The refe rence range was not u sed to interpret this result as normal/abnor mal. Lab Interpretation (test Normal code = 99820-2) [facility] ResourcesXR HIPS 3 VW [id number] 21:41:53No appreciable fracture lines. RL: 6200 ICAL [...] UnB[facility]valePROCALCITONIN2021-03-01 20:00:00 Test Item Value Reference Range Interpretation Comments Procalcitonin (test 0.13 ng/mL <0.07 H code = 2600953796) JAMES (test code = JAMES) INTERPRETATION OF [...] lung abscess/empyema. For further information please refer to:[email or web address] Lab Interpretation Abnormal (test code = 54365-2) [facility] [facility] ResourcesPO[facility] GLUCOSE (AUTOMATED)2020-12-11 19:07:00 Test Item Value Reference Range Interpretation Comments POCT GLU (test code = 8205573564) 274 mg/dL 70-110 H Lab Interpretation (test code = Abnormal 89917-2) [facility]UM2021-03-01 18:31:00 Test Item Value Reference Range Interpretation Comments MAGNESIUM (test code = 4942268422) 1.9 mg/dL 1.7-2.4 Lab Interpretation (test code = Normal 18836-5) [facility] [place] [facility] ResourcesFERRITIN [id number] 18:31:00 Test Item Value Reference Range Interpretation Comments FERRITIN (test code = 178.0 ng/mL 18.0-464.0 4456641588) JAMES (test code = JAMES) Biotin has been reported to cause a negative bias, interpret results relative to patient's use of biotin. Lab Interpretation (test Normal code = 91621-2) [facility] HEAD WO [id number] 14:36:47 No acute intracranial abnormality. Dilated ventricles [...] reviewed this study and agree with the abovereport.[facility] ResourcesURINALYSIS2021-03-01 14:28:00 Test Item Value Reference Range Interpretation Comments APPEARANCE (test code = Clear Clear 0794127495) COLOR (test code = Yellow Yellow 5695739997) PH (test code = 4.8-8.0 8321672669) SP GRAVITY (test code = 1.003-1.030 2987896328) GLU U QUAL (test code = 500 mg/dL Normal A 6967540750) BLOOD (test code = Negative Negative 8454390425) KETONES (test code = 5 mg/dL Negative A 1743101171) PROTEIN (test code = Negative Negative 2887-8) UROBILIN (test code = Normal Normal 8925119880) BILIRUBIN (test code = Negative Negative 8324577218) NITRITE (test code = Negative Negative 6630662072) LEUK RYAN (test code = Negative Negative 1529892958) RBC/HPF (test code = See_Comment [Autom ated message] 4417429202) The system [employer] generated this result transmit ronan reference range : 0 - 3 HPF. The refe rence range was not u sed to interpret th is result as normal/abnormal . WBC/HPF (test code = See_Comment [Autom ated message] 8703411520) The system [employer] generated this result transmit ronan reference range : 0 - 5 HPF. The refe rence range was not u sed to interpret th is result as normal/abnormal . BACTERIA (test code = Negative Negative 7527854865) MUCOUS (test code = Slight Negative LPF A 2633402176) SQ EPITH (test code = HPF 3527378660) Lab Interpretation (test Abnormal code = 73062-2) [facility] ResourcesCOVID-19 (ID NOW RAPID TESTING)2020-12-11 13:10:00 Test Item Value Reference Range Interpretation Comments SARS-CoV-2 Rapid ID NOW Not Detected Not Detected (test code = 60471-9) JAMES (test code = JAMES) ID NOW COVID-19 Assay is an isothermal nucleic acid amplification test intended for the qualitative detection of nucleic acid from SARS-CoV-2 viral RNA in nasopharyngeal (CLOTH REELER) specimens. It is used under Emergency Use [...] indicated. Lab Interpretation Normal (test code = 33873-5) [facility]. METABOLIC PANEL (33452)2020-12-11 12:29:00 Test Item Value Reference Range Interpretation Comments NA (test code = 136 mmol/L 135-145 4876471266) K (test code = 3.5 mmol/L 3.5-5.0 0480583904) CL (test code = 95 mmol/L 98-108 L 6538590496) CO2 TOTAL (test code = 35 mmol/L 23-31 H 4304765518) AGAP (test code = 2-16 9661517641) BUN (test code = 9 mg/dL 7-23 8014956124) GLUCOSE (test code = 329 mg/dL 70-110 H 2803938046) CREATININE (test code = 0.72 mg/dL 0.60-1.25 1496724729) TOTAL BILI (test code = 0.6 mg/dL 0.1-1.3 5474061464) CALCIUM (test code = 9.0 mg/dL 8.6-10.6 7859550702) T PROTEIN (test code = 6.8 g/dL 6.3-8.2 5258952428) ALBUMIN (test code = 3.8 g/dL 3.5-5.0 8909058218) ALK PHOS (test code = 288 U/L 34-122 H 7740079068) ALTv (test code = 46 U/L 5-50 1742-6) AST(SGOT) (test code = 38 U/L 13-40 0819457716) eGFR Calculation mL/min/1.73m2 (Non-) (test code = 1804543675) eGFR Calculation mL/min/1.73m2 () (test code = 1981594644) JAMES (test code = JAMES) Association of [...] tests). Lab Interpretation Abnormal (test code = 04772-5) [facility] ResourcesLactic Acid Whole [id number] 12:23:00 Test Item Value Reference Range Interpretation Comments LACTIC ACID (test code = 2.09 mmol/L 0.50-2.20 9036422896) Lab Interpretation (test code = Normal 28634-2) [facility] WITH [id number] 12:17:00 Test Item Value Reference Range Interpretation Comments WBC (test code = See_Comment H [Automated 0890-2) message] The sy stem which generated this result transmitted reference range : 4.20 - 10.70 10*3/?L. The reference range was not used to interpret this result as normal/abnormal . RBC (test code = See_Comment [Automated 779-8) message] The sy stem which [...] RDW-SD (test code = 44.9 fL 38.5-51.6 86552-7) RDW-CV (test code = 15.9 % 12.1-15.4 H 788-0) PLT (test code = See_Comment H [Automated 777-3) message] The sy stem which generated this result transmitted reference range : 150 - 328 10*3/ ?L. The reference r torito was not used to interpret this result as normal/abnormal . MPV (test code = 8.3 fL 9.8-13.0 L 59231-5) NRBC/100 WBC (test See_Comment [Automat ed code = 9029814797) message] The system which generated this result transmitted reference range : 0.0 - 10.0 /100 WBCs. The refer ence range was not u sed to interpret th is result as normal/abnormal . NRBC x10^3 (test code <0.01 See_Comment [Auto mated = 6722232571) message] The s ystem which generated this result transmitted reference range : 10*3/?L. The reference range was not used to interpret this result as normal/abnormal . GRAN MAT (NEUT) % 77.9 % (test code = 770-8) IMM GRAN % (test code 0.50 % = 4382949467) LYMPH % (test code = 12.2 % 736-9) MONO % (test code = 5.2 % 5905-5) EOS % (test code = 3.7 % 713-8) BASO % (test code = 0.5 % 706-2) GRAN MAT x10^3(ANC) 9.57 10*3/uL 1.99-6.95 H (test code = 5666339471) IMM GRAN x10^3 (test 0.06 10*3/uL 0.00-0.06 code = 1097840811) LYMPH x10^3 (test code 1.50 10*3/uL 1.09-3.23 = 731-0) MONO x10^3 (test code 0.64 10*3/uL 0.36-1.02 = 742-7) EOS x10^3 (test code = 0.46 10*3/uL 0.06-0.53 711-2) BASO x10^3 (test code 0.06 10*3/uL 0.01-0.09 = 704-7) Lab Interpretation Abnormal (test code = 58647-8) [facility] ResourcesLAB ONLY COVID [id number] 18:43:00COVID DMT InterpretationInterpretation/Recommendations: Molecular NAAT Test Results [...] a nasopharyngeal sample, there is approximately a ilb-hn-iwsjb chance that the patient was infected and [...] based upon aggregate data pooled from the [facility] medical recordincluding both current and prior COVID-19 related testing results for the following tests offered atour institution:A. Tests for the Identification of SARS-CoV-2 RNA:SARS-CoV-2 PCR assays including Woden Aptima, Woden Fusion, Barrett RealTime, and Ortho Neuro Management Xpert Xpress. SARS-CoV-2 Rapid ID NOW by the ID NOW assay. ? B. Tests for the Identification of SARS-CoV-2 Antibodies: Chemiluminescent immunoassays including Access SARS-CoV-2 IgM (DXI 600), VITROS Ovil-EQZW-CsY-2 IgG (Vitros 5600 and Vitros 3600), and Barrett SARS-CoV-2 IgG (AIRCRAFT ENGINE MECHANIC OVERHAUL I System). These interpretation comments assume that only the above testing was utilized and that the approved acceptable specimen type(s) were used for a given test. These interpretations are autopopulated into Fios based on computerized algorithms matching an interpretation [...] setting. [facility] SERVICESCOVID MekcjahLTSC-SrA-8 Rapid ID NOW (no units) ? ? Date ? Value ? 08/21/2020 ? Not Detected ? [facility]Un[facility]-08[facility]23 18:25:00 Test Item Value Reference Range Interpretation Comments POCT GLU (test code = 7875790067) 297 mg/dL 70-110 H Lab Interpretation (test code = Abnormal 62905-2) [facility] GLUCOSE (AUTOMATED)2020-08-23 14:25:00 Test Item Value Reference Range Interpretation Comments POCT GLU (test code = 4986608927) 181 mg/dL 70-110 H Lab Interpretation (test code = Abnormal 40324-0) [facility] Metabolic Panel (NA, K, CL, CO2, GLUCOSE, BUN, CREATININE, CA)2020-08-23 11:45:00 Test Item Value Reference Range Interpretation Comments NA (test code = 132 mmol/L 135-145 L 2454433292) K (test code = 4.0 mmol/L 3.5-5 6438863602) CL (test code = 96 mmol/L 98-108 L 9407005094) CO2 TOTAL (test code = 33 mmol/L 23-31 H 3786579641) AGAP (test code = 2-16 9956061238) BUN (test code = 9 mg/dL 7-23 0944253309) GLUCOSE (test code = 176 mg/dL 70-110 H 6041199736) CREATININE (test code = 0.66 mg/dL 0.6-1.25 7070921134) CALCIUM (test code = 8.5 mg/dL 8.6-10.6 L 2877567568) eGFR Calculation mL/min/1.73m2 (Non-) (test code = 3463894016) eGFR Calculation mL/min/1.73m2 () (test code = 2016926875) JAMES (test code = JAMES) Association of [...] tests). Lab Interpretation Abnormal (test code = 42249-9) [facility] ResourcesMagnesium [id number] 11:45:00 Test Item Value Reference Range Interpretation Comments MAGNESIUM (test code = 5916762285) 2.0 mg/dL 1.7-2.4 Lab Interpretation (test code = Normal 91736-2) [facility] with Pgebypmtqhgx6142-44-25 11:38:00 Test Item Value Reference Range Interpretation [...] RDW-SD (test code = 41.8 fL 38.5-51.6 29841-8) RDW-CV (test code = 14.3 % 12.1-15.4 788-0) PLT (test code = See_Comment H [Automated 777-3) message] The sy stem which generated this result transmitted reference range : 150 - 328 10*3/ ?L. The reference r torito was not used to interpret this result as normal/abnormal . MPV (test code = 8.0 fL 9.8-13 L 98046-2) NRBC/100 WBC (test See_Comment [Automat ed code = 7490817565) message] The system which generated this result transmitted reference range : 0.0 - 10.0 /100 WBCs. The refer ence range was not u sed to interpret th is result as normal/abnormal . NRBC x10^3 (test code <0.01 See_Comment [Auto mated = 7525877365) message] The s ystem which generated this result transmitted reference range : 10*3/?L. The reference range was not used to interpret this result as normal/abnormal . GRAN MAT (NEUT) % 61.5 % (test code = 770-8) IMM GRAN % (test code 2.00 % = 9520551651) LYMPH % (test code = 25.5 % 736-9) MONO % (test code = 6.3 % 5905-5) EOS % (test code = 3.7 % 713-8) BASO % (test code = 1.0 % 706-2) GRAN MAT x10^3(ANC) 5.29 10*3/uL 1.99-6.95 (test code = 0474507069) IMM GRAN x10^3 (test 0.17 10*3/uL 0-0.06 H code = 1525078480) LYMPH x10^3 (test code 2.19 10*3/uL 1.09-3.23 = 731-0) MONO x10^3 (test code 0.54 10*3/uL 0.36-1.02 = 742-7) EOS x10^3 (test code = 0.32 10*3/uL 0.06-0.53 711-2) BASO x10^3 (test code 0.09 10*3/uL 0.01-0.09 = 704-7) Lab Interpretation Abnormal (test code = 74039-6) [facility] GLUCOSE (AUTOMATED)2020-08-23 10:22:00 Test Item Value Reference Range Interpretation Comments POCT GLU (test code = 2078594778) 164 mg/dL 70-110 H Lab Interpretation (test code = Abnormal 59095-3) [facility] GLUCOSE (AUTOMATED)2020-08-23 05:56:00 Test Item Value Reference Range Interpretation Comments POCT GLU (test code = 4050899693) 242 mg/dL 70-110 H Lab Interpretation (test code = Abnormal 41415-5) [facility] GLUCOSE (AUTOMATED)2020-08-23 03:02:00 Test Item Value Reference Range Interpretation Comments POCT GLU (test code = 1207657638) 210 mg/dL 70-110 H Lab Interpretation (test code = Abnormal 76432-5) [facility] GLUCOSE (AUTOMATED)2020-08-22 23:40:00 Test Item Value Reference Range Interpretation Comments POCT GLU (test code = 8265011068) 267 mg/dL 70-110 H Lab Interpretation (test code = Abnormal 42314-0) [facility] GLUCOSE (AUTOMATED)2020-08-22 19:08:00 Test Item Value Reference Range Interpretation Comments POCT GLU (test code = 3036328932) 191 mg/dL 70-110 H Lab Interpretation (test code = Abnormal 03417-1) [facility] GLUCOSE (AUTOMATED)2020-08-22 13:50:00 Test Item Value Reference Range Interpretation Comments POCT GLU (test code = 0059067886) 174 mg/dL 70-110 H Lab Interpretation (test code = Abnormal 16705-2) [facility] ResourcesURINE [id number] 12:59:00 Test Item Value Reference Range Interpretation Comments URINE CULTURE (test No aerobic growth (< code = 630-4) 1000 CFU/mL) [facility] ResourcesCBC with Vvstmqtqzdyw5715-20-80 11:28:00 Test Item Value Reference Range Interpretation Comments WBC (test code = See_Comment [Automated 6690-2) message] The sy stem which generated this result transmitted reference range : 4.20 - 10.70 10*3/?L. The reference range was not used to interpret this result as normal/abnormal . RBC (test code = See_Comment L [Automated 619-8) message] The sy stem which generated this [...] RDW-SD (test code = 42.5 fL 38.5-51.6 11881-0) RDW-CV (test code = 14.5 % 12.1-15.4 788-0) PLT (test code = See_Comment H [Automated 777-3) message] The sy stem which generated this result transmitted reference range : 150 - 328 10*3/ ?L. The reference r torito was not used to interpret this result as normal/abnormal . MPV (test code = 8.0 fL 9.8-13 L 54381-7) NRBC/100 WBC (test See_Comment [Automat ed code = 7225194133) message] The system which generated this result transmitted reference range : 0.0 - 10.0 /100 WBCs. The refer ence range was not u sed to interpret th is result as normal/abnormal . NRBC x10^3 (test code <0.01 See_Comment [Auto mated = 3675713195) message] The s ystem which generated this result transmitted reference range : 10*3/?L. The reference range was not used to interpret this result as normal/abnormal . GRAN MAT (NEUT) % 69.1 % (test code = 770-8) IMM GRAN % (test code 2.20 % = 3310281111) LYMPH % (test code = 20.9 % 736-9) MONO % (test code = 5.8 % 5905-5) EOS % (test code = 1.0 % 713-8) BASO % (test code = 1.0 % 706-2) GRAN MAT x10^3(ANC) 6.51 10*3/uL 1.99-6.95 (test code = 0603417388) IMM GRAN x10^3 (test 0.21 10*3/uL 0-0.06 H code = 6594577456) LYMPH x10^3 (test code 1.97 10*3/uL 1.09-3.23 = 731-0) MONO x10^3 (test code 0.55 10*3/uL 0.36-1.02 = 742-7) EOS x10^3 (test code = 0.09 10*3/uL 0.06-0.53 711-2) BASO x10^3 (test code 0.09 10*3/uL 0.01-0.09 = 704-7) BASO STIPPLING (test Present A code = 703-9) BANDS (test code = Increased A 4593539986) TOXIC CHANGES (test Present A code = 803-7) Lab Interpretation Abnormal (test code = 34642-0) [facility] Metabolic Panel (NA, K, CL, CO2, GLUCOSE, BUN, CREATININE, CA)2020-08-22 11:12:00 Test Item Value Reference Range Interpretation Comments NA (test code = 135 mmol/L 135-145 9459894067) K (test code = 3.6 mmol/L 3.5-5 0790690633) CL (test code = 99 mmol/L 98-108 3215564177) CO2 TOTAL (test code = 31 mmol/L 23-31 0628775809) AGAP (test code = 2-16 6447357243) BUN (test code = 9 mg/dL 7-23 7626225383) GLUCOSE (test code = 198 mg/dL 70-110 H 0973594170) CREATININE (test code = 0.72 mg/dL 0.6-1.25 5627062719) CALCIUM (test code = 8.3 mg/dL 8.6-10.6 L 5932430348) eGFR Calculation mL/min/1.73m2 (Non-) (test code = 5359354801) eGFR Calculation mL/min/1.73m2 () (test code = 1363705606) JAMES (test code = JAMES) Association of [...] tests). Lab Interpretation Abnormal (test code = 74770-4) [facility] ResourcesMagnesium Jaudp0603-98-51 11:12:00 Test Item Value Reference Range Interpretation Comments MAGNESIUM (test code = 7679338494) 2.0 mg/dL 1.7-2.4 Lab Interpretation (test code = Normal 30058-4) [facility] ResourcesLipid Panel (Total Cholesterol, Triglycerides, HDL) - [id number] 11:12:00 Test Item Value Reference Range Interpretation Comments CHOL (test code = 155 mg/dL 120-200 5291708452) HDL (test code = 42 mg/dL >40 2741624758) HDLC RATIO (test code = See_Comment [Au tomated message] 0448647001) The system [employer] generated this result transmit ronan reference range : <=5.0. The refe rence range was not u sed to interpret th is result as normal/abnormal . TRIG (test code = 186 mg/dL 30-170 H 0611836384) LDL CHOL (test code = 76 mg/dL See_Comment [Auto mated message] 60130-6) The system [employer] generated this result transmit ronan reference range : <=160. The refe rence range was not u sed to interpret th is result as normal/abnormal . VLDL (test code = 37 mg/dL 5-60 2293522859) Lab Interpretation (test Abnormal code = 78892-2) [facility] ResourcesHEPATIC FUNCTION PANEL (02494) (ALB,T.PRO,BILI T,BU/BC,ALT,AST,ALK PHOS)2020-08-22 11:12:00 Test Item Value Reference Range Interpretation Comments TOTAL BILI (test code = 4266332329) 0.6 mg/dL 0.1-1.1 BILI UNCON (test code = 1955309765) 0.2 mg/dL 0.1-1.1 BILI CONJ (test code = 7043718846) 0.0 mg/dL 0-0.3 T PROTEIN (test code = 9888905826) 6.0 g/dL 6.3-8.2 L ALBUMIN (test code = 3696762518) 2.8 g/dL 3.5-5 L ALK PHOS (test code = 9431852431) 222 U/L 34-122 H ALTv (test code = 1742-6) 27 U/L 5-50 AST(SGOT) (test code = 6474313279) 30 U/L 13-40 Lab Interpretation (test code = Abnormal 07945-8) [facility] GLUCOSE (AUTOMATED)2020-08-22 10:11:00 Test Item Value Reference Range Interpretation Comments POCT GLU (test code = 4044252549) 196 mg/dL 70-110 H Lab Interpretation (test code = Abnormal 75319-8) [facility] GLUCOSE (AUTOMATED)2020-08-22 07:15:00 Test Item Value Reference Range Interpretation Comments POCT GLU (test code = 0226246459) 183 mg/dL 70-110 H Lab Interpretation (test code = Abnormal 91578-3) [facility] GLUCOSE (AUTOMATED)2020-08-22 02:30:00 Test Item Value Reference Range Interpretation Comments POCT GLU (test code = 5372871363) 295 mg/dL 70-110 H Lab Interpretation (test code = Abnormal 29652-5) [facility] GLUCOSE (AUTOMATED)2020-08-21 23:46:00 Test Item Value Reference Range Interpretation Comments POCT GLU (test code = 0672260882) 258 mg/dL 70-110 H Lab Interpretation (test code = Abnormal 11848-5) [facility] ResourcesC-REACTIVE [id number] 18:50:00 Test Item Value Reference Range Interpretation Comments CRP (test code = 0292679746) 15.5 mg/dL <0.8 H Lab Interpretation (test code = Abnormal 85080-8) [facility] ResourcesPO[facility]SE (AUTOMATED)2020-08-21 18:21:00 Test Item Value Reference Range Interpretation Comments POCT GLU (test code = 2485963574) 297 mg/dL 70-110 H Lab Interpretation (test code = Abnormal 17458-8) [facility] ResourcesETHANOL2020-11-09 16:24:00 Test Item Value Reference Range Interpretation Comments ALCOHOL (test code = <10 mg/dL 8208802252) JAMES (test code = Toxic Greater than or JAMES) equal to 80 mg/dL. NOTE: Whole blood values are approximately 10% to 15% lower than serum and plasma. [facility] ResourcesGAL/CLC ONLY - URINE DRUG (IMMUNOASSAY) - 4 ER [id number] 15:36:00 Test Item Value Reference Range Interpretation Comments AMPHET (test code = Negative Negative 5282179348) Cocaine Metabolite (test Negative Negative code = 7592071374) OPIATES (test code = Presumptive Positive Negative A 9399485962) THC (test code = Negative Negative 3267471013) JAMES (test code = JAMES) Urine Drug Cutoff Ranges Amphetamine: ? 1,000 ng/mLCocaine: ? 150 ng/mLOpiates: ? 300 ng/mLCannabinoids: ?50 ng/mL The results are to be used only for medical (i.e., treatment) purposes. Unconfirmed screening results must not be used for non-medical purposes (e.g., employment testing, legal testing). Lab Interpretation (test Abnormal code = 46452-5) [facility] ONLY - SYPHILIS IGG/RYX6256-05-00 15:04:00 Test Item Value Reference Range Interpretation Comments Syphilis IgG/IgM (test Non-reactive Non-reactive code = 72930-8) JAMES (test code = JAMES) Non-reactive - No serologic evidence of T. pallidum infection. Cannot exclude incubating or early syphilis. Submit a second specimen in 2-4 weeks if syphilis is clinically suspected. Equivocal - Further testing to follow. Reactive - Further testing to follow. Lab Interpretation (test Normal code = 13918-6) [facility] ResourcesUrinalysis2020-11-09 14:52:00 Test Item Value Reference Range Interpretation Comments APPEARANCE (test code = Clear Clear 2611094444) COLOR (test code = Yellow Yellow 9895082711) PH (test code = 4.8-8.0 6230959575) SP GRAVITY (test code = 1.003-1.030 1143992194) GLU U QUAL (test code = 500 mg/dL Normal A 5472460418) BLOOD (test code = Negative Negative 4951847255) KETONES (test code = 20 mg/dL Negative A 8738351982) PROTEIN (test code = Negative Negative 2887-8) UROBILIN (test code = Normal Normal 1675991590) BILIRUBIN (test code = Negative Negative 3796711961) NITRITE (test code = Negative Negative 0918930233) LEUK RYAN (test code = Negative Negative 7913629218) RBC/HPF (test code = <1 See_Comment [Autom ated message] 0573523585) The system [employer] generated this result transmit ronan reference range : 0 - 3 HPF. The refe rence range was not u sed to interpret th is result as normal/abnormal . WBC/HPF (test code = See_Comment [Autom ated message] 1971765053) The system [employer] generated this result transmit ronan reference range : 0 - 5 HPF. The refe rence range was not u sed to interpret th is result as normal/abnormal . BACTERIA (test code = Negative Negative 6415890283) MUCOUS (test code = Slight Negative LPF A 5550042313) Lab Interpretation (test Abnormal code = 33681-3) [facility] ResourcesACTIVATED PARTIAL THRMPLAS [id number] 13:45:00 Test Item Value Reference Range Interpretation Comments APTT Patient (test code = See_Comment [ Automated message] 3173-2) The system [employer] generated this result transmitted ref erence range: 26 - 36 Seconds. The re ference range was not u sed to interpret this result as normal/abnor mal. Lab Interpretation (test Normal code = 28199-9) [facility] ResourcesPOCT GLUCOSE (AUTOMATED)2020-08-21 13:45:00 Test Item Value Reference Range Interpretation Comments POCT GLU (test code = 1149489796) 246 mg/dL 70-110 H Lab Interpretation (test code = Abnormal 47925-9) [facility] ResourcesHIV 1/2 AG-AB WITH [id number] 12:32:00 Test Item Value Reference Range Interpretation Comments HIV Negative Negative Semi-quantitative (test code = 90196-2) JAMES (test code = Non-reactive for HIV-1 JAMES) antigen and HIV-1/HIV-2 antibodies. ?No laboratory evidence of HIV infection. ?Repeat in 2-4 weeks if acute HIV infection is suspected. [facility] ResourcesCBC WITH [id number] 12:18:00 Test Item Value Reference Range Interpretation [...] RDW-SD (test code = 44.4 fL 38.5-51.6 69383-6) RDW-CV (test code = 14.5 % 12.1-15.4 788-0) PLT (test code = See_Comment H [Automated 777-3) message] The sy stem which generated this result transmitted reference range : 150 - 328 10*3/ ?L. The reference r torito was not used to interpret this result as normal/abnormal . MPV (test code = 8.5 fL 9.8-13 L 71524-5) NRBC/100 WBC (test See_Comment [Automat ed code = 1615715344) message] The system which generated this result transmitted reference range : 0.0 - 10.0 /100 WBCs. The refer ence range was not u sed to interpret th is result as normal/abnormal . NRBC x10^3 (test code <0.01 See_Comment [Auto mated = 6780015697) message] The s ystem which generated this result transmitted reference range : 10*3/?L. The reference range was not used to interpret this result as normal/abnormal . GRAN MAT (NEUT) % 90.4 % (test code = 770-8) IMM GRAN % (test code 1.30 % = 3883468948) LYMPH % (test code = 7.1 % 736-9) MONO % (test code = 0.5 % 5905-5) EOS % (test code = 0.1 % 713-8) BASO % (test code = 0.6 % 706-2) GRAN MAT x10^3(ANC) 7.74 10*3/uL 1.99-6.95 H (test code = 2752522529) IMM GRAN x10^3 (test 0.11 10*3/uL 0-0.06 H code = 1337247321) LYMPH x10^3 (test code 0.61 10*3/uL 1.09-3.23 L = 731-0) MONO x10^3 (test code 0.04 10*3/uL 0.36-1.02 L = 742-7) EOS x10^3 (test code = <0.03 0.06-0.53 L 711-2) BASO x10^3 (test code 0.05 10*3/uL 0.01-0.09 = 704-7) POLYCHROMASIA (test 2+ See_Comment [Automa ronan code = 15815-9) message] The system which generated this result transmitted reference range : 2+. The referen ce range was not u sed to interpret th is result as normal/abnormal . BANDS (test code = Increased A 5483431920) Lab Interpretation Abnormal (test code = 75633-4) [facility]ONIN2020-11-09 11:48:00 Test Item Value Reference Range Interpretation Comments Procalcitonin (test 0.36 ng/mL <0.07 H code = 7816910484) JAMES (test code = JAMES) INTERPRETATION OF [...] lung abscess/empyema. For further information please refer to:[email or web address] Lab Interpretation Abnormal (test code = 31938-0) [facility] ResourcesLAIDATE [id number] 10:53:00 Test Item Value Reference Range Interpretation Comments LDH (test code = 5948582472) 351 U/L 300-600 Lab Interpretation (test code = Normal 49708-7) [facility] ResourcesSEDIMENTATION [id number] 10:07:00 Test Item Value Reference Range Interpretation Comments ESR (test code = See_Comment H [Automated message] 8693242819) The system [employer] generated this result transmitted ref erence range: 0 - 10 m m/HR. The reference r torito was not used to interpret this result as normal/abnor mal. Lab Interpretation (test Abnormal code = 82543-2) [facility] ResourcesPOCT GLUCOSE (AUTOMATED)2020-08-21 09:45:00 Test Item Value Reference Range Interpretation Comments POCT GLU (test code = 8002995916) 287 mg/dL 70-110 H Lab Interpretation (test code = Abnormal 86002-2) [facility] ResourcesGlycosylated Hemoglobin (A1C)2020-08-21 09:29:00 Test Item Value Reference Range Interpretation Comments HGB A1C (test code = 4548-4) 9.8 % 4-6 H Lab Interpretation (test code = Abnormal 26824-3) [facility] ResourcesCOVID-19 (ID NOW RAPID TESTING)2020-08-21 09:13:00 Test Item Value Reference Range Interpretation Comments SARS-CoV-2 Rapid ID NOW Not Detected Not Detected (test code = 23150-3) JAMES (test code = JAMES) ID NOW COVID-19 Assay is an isothermal nucleic acid amplification test intended for the qualitative detection of nucleic acid from SARS-CoV-2 viral RNA in nasopharyngeal (CLOTH REELER) specimens. It is used under Emergency Use [...] indicated. Lab Interpretation Normal (test code = 35838-3) [facility] ResourcesProthrombin Time / [id number] 08:59:00 Test Item Value Reference Range Interpretation Comments PROTIME PATIENT (test See_Comment H [Auto mated message] code = 5964-2) The system [employer] generated this result transmitted ref erence range: 10.1 - 1 2.6 Seconds. The reference range was not used to int erpret this result as normal/abnormal . INR (test code = 6301-6) Nor mal INR <1.1; Warfarin Therap eutic range 2.0 to 3. 0 or 2.5 to 3.5, dep ending upon the indica tions. Lab Interpretation (test Abnormal code = 53596-2) [facility] ResourcesaPTT2020-11-09 08:59:00 Test Item Value Reference Range Interpretation Comments APTT Patient (test code = See_Comment [ Automated message] 3173-2) The system [employer] generated this result transmitted ref erence range: 26 - 36 Seconds. The re ference range was not u sed to interpret this result as normal/abnor mal. Lab Interpretation (test Normal code = 30913-4) [facility] ResourcesBASI METABOLIC PANEL (NA, K, CL, CO2, GLUCOSE, BUN, CREATININE, CA)2020-08-21 08:52:00 Test Item Value Reference Range Interpretation Comments NA (test code = 136 mmol/L 135-145 0114455153) K (test code = 4.3 mmol/L 3.5-5 6001949453) CL (test code = 104 mmol/L 98-108 2589563586) CO2 TOTAL (test code = 24 mmol/L 23-31 1181559116) AGAP (test code = 2-16 8769529838) BUN (test code = 8 mg/dL 7-23 7650761647) GLUCOSE (test code = 308 mg/dL 70-110 H 9323456000) CREATININE (test code = 0.72 mg/dL 0.6-1.25 9872422620) CALCIUM (test code = 7.8 mg/dL 8.6-10.6 L 2089983231) eGFR Calculation mL/min/1.73m2 (Non-) (test code = 4622264239) eGFR Calculation mL/min/1.73m2 () (test code = 0415404895) JAMES (test code = JAMES) Association of [...] tests). Lab Interpretation Abnormal (test code = 55238-2) [facility] ResourcesHEPATIC FUNCTION PANEL (98789) (ALB,T.PRO,BILI T,BU/BC,ALT,AST,ALK PHOS)2020-08-21 08:52:00 Test Item Value Reference Range Interpretation Comments TOTAL BILI (test code = 7955902599) 0.8 mg/dL 0.1-1.1 BILI UNCON (test code = 8205365845) 0.3 mg/dL 0.1-1.1 BILI CONJ (test code = 8469631163) 0.0 mg/dL 0-0.3 T PROTEIN (test code = 7580015839) 5.7 g/dL 6.3-8.2 L ALBUMIN (test code = 8939179642) 2.7 g/dL 3.5-5 L ALK PHOS (test code = 3244069251) 245 U/L 34-122 H ALTv (test code = 1742-6) 37 U/L 5-50 AST(SGOT) (test code = 0532810816) 43 U/L 13-40 H Lab Interpretation (test code = Abnormal 86490-0) [facility]
--- NOTE | 2022-10-22 13:06 | RAD REPORT ---
EXAM DESCRIPTION: RAD - Chest Single View - 10/22/2022 12:59 pm CLINICAL HISTORY: CHEST PAIN COMPARISON: Portable 09/29/2022 TECHNIQUE: AP portable chest image was obtained 10/22/2022 12:59 pm . FINDINGS: Lung volumes are low. Chronic interstitial pattern is not significantly different. No makeda pheral mass or consolidation. Minimal interstitial edema or infiltrate could be masked by the chronic lung pattern. No significant failure or volume overload seen. Heart size is magnified by shallow inspiration portable imaging. No vascular engorgement. No measurable pleural effusion and no pneumothorax. No acute bone finding. Old rib trauma noted on t he right. Significant right shoulder joint degenerative change present. No acute aortic findings susp ected. IMPRESSION: Chronic interstitial lung pattern potentially masking very minimal interstitial edema or infiltrate. No significant change from comparison study.
[2022-10-22] MEDS ORDERED: FAMOTIDINE 20 MG/2 ML VIAL IV ONE (13:10)
[2022-10-22] MEDS ORDERED: HYDROMORPHONE HCL 1 MG/ML INJ ONE (13:10)
[2022-10-22] MEDS ORDERED: ONDANSETRON 4 MG/2 ML VIAL ONE (13:10)
[2022-10-22] MEDS ORDERED: NA CHLORIDE 0.9% 1,000 ML ONE ×2 (13:10→17:13)
[2022-10-22 13:53] LABS: Absolute Lymphocytes (CBC) 0.9 K/uL (0.7-4.9); Hematocrit 39.1 % (39.6-49.0); Lymphocytes % 8.4 % (15.3-44.8); MCV 84.9 fL (80-100); MPV 6.4 fL (7.6-11.3); RBC Red Blood Cell Count 4.61 M/uL (4.33-5.43)
[2022-10-22 14:28] LABS: SARS-COV-2 RT PCR NEGATIVE (NEGATIVE)
[2022-10-22 15:15] LABS: Albumin 2.7 g/dL (3.4-5.0); Bilirubin Direct 0.3 mg/dL (0-0.2); Bilirubin Total 0.7 mg/dL (0.2-1.0); Magnesium 2.2 mg/dL (1.6-2.4); Protein, Total 6.4 g/dL (6.4-8.2); Troponin High Sensitivity 13.6 pg/mL (<58.9)
[2022-10-22 15:19] LABS: Protime INR 1.1
[2022-10-22] MEDS ORDERED: HYDROMORPHONE HCL 0.5 MG/0.5 ML INJ ONE (17:38)
[2022-10-22] MEDS ORDERED: METOPROLOL TAR 50 MG TAB ONE (21:44)
--- NOTE | 2022-10-22 22:02 | RAD REPORT ---
EXAM DESCRIPTION: CT - Chest For Pe Angio - 10/22/2022 9:49 pm CLINICAL HISTORY: chest pain, tachycardia COMPARISON: Chest For Pe Angio dated 06/24/2018; Chest Single View dated 10/22/2022 TECHNIQUE: Dynamically enhanced 3 mm thick images of the chest were obtained during administration o f approximately 150mL Isovue 370 IV contrast. Coronal and oblique MIP reconstruction images were gene rated and reviewed. Exam utilizes a protocol to evaluate the pulmonary arterial tree. All CT scans are performed using dose optimization technique as appropriate and may include automated exposure control or mA/KV adjustment according to patient size. FINDINGS: No pulmonary emboli are identified. The aorta as imaged shows no acute or suspicious finding. Borderline to mild cardiomegaly is present. Pericardial effusion is present maximum 15 mm along the posterior margin. Posterior gutter bilateral atelectasis present. Minimal bilateral pleural effusions are present. Inte rstitial markings are prominent. On the chest film these for baseline. Mild interstitial edema or inf iltrate could be masked. No pneumothorax. No pleural based mass. No mediastinal or hilar suspicious masses. No chest wall masses or abnormal axillary lymphadenopathy. Patient has significant bilateral gynecomastia. Prominent thoracic spine degenerative changes are pr esent. IMPRESSION: No pulmonary emboli identified. Borderline to mild cardiomegaly with pericardial effusion to 15 mm in thickness posteriorly. Atelectasis and minimal pleural effusion in each posterior lung base. A mild interstitial edema or in filtrate cannot be excluded.
--- NOTE | 2022-10-22 22:24 | EDPHYS ---
Physician Documentation [facility] Name: Kiel Ngo Age: 72 yrs Sex: Male : 1950 Arrival Date: 10/22/2022 Time: 12:30 Bed 17 Private MD: ED Physician Rosa Harrison HPI: 10/22 12:36 This 72 yrs old Male presents to ER via EMS with complaints of Chest Pain. pm1 12:36 The patient or guardian reports chest pain that is located primarily in the anterior pm1 chest wall, mid-sternal area. 12:36 Onset: this morning, at 06:00, after drinking a soda. The pain does not radiate. pm1 Associated signs and symptoms: The patient has no apparent associated signs or symptoms, Pertinent negatives: abdominal pain, dizziness, headache, nausea, shortness of breath, vomiting. The chest pain is described as burning. Duration: The patient or guardian reports a single episode. Modifying factors: The symptoms are alleviated by nothing. the symptoms are aggravated by nothing. Severity of pain: in the emergency department the pain has improved. The patient has not experienced similar symptoms in the past. The patient has not recently seen a physician, the patient's primary care provider is Dr. Snow. Patient also reports chronic hip pain. He has not had a refill of his pain medications by pain management and his pain pump has not been refilled. Historical: - Allergies: 12:34 Demerol; ap3 12:34 metformin; ap3 12:34 Morphine; ap3 - PMHx: 12:34 Atrial fibrillation; chronic back pain; Chronic right leg pain; neuropathy; ap3 - PSHx: 12:34 back sx; PANCREAS SX; R. Ankle SX; ap3 - Immunization history:: Client reports receiving the 2nd dose of the Covid vaccine. - Social history:: Smoking status: Patient denies any tobacco usage or history of. ROS: 12:36 Constitutional: Negative for fever, chills, and weight loss. pm1 12:36 Respiratory: Negative for shortness of breath, cough, wheezing, and pleuritic chest pm1 pain, Abdomen/GI: Negative for abdominal pain, nausea, vomiting, diarrhea, and constipation. 12:36 Back: Negative for injury and pain. 12:36 Skin: Negative for injury, rash, and discoloration, Neuro: Negative for headache, weakness, numbness, tingling, and seizure. 12:36 Cardiovascular: Positive for chest pain, of the mid-sternal area, baseline elevated heart rate. 12:36 MS/extremity: Positive for chronic hip pain, Negative for decreased range of motion, deformity. 12:36 All other systems are negative. Exam: 12:36 Constitutional: This is a well developed, well nourished patient who is awake, alert, pm1 and in no acute distress. Head/Face: Normocephalic, atraumatic. 12:36 Back: No spinal tenderness. No costovertebral tenderness. Full range of motion. Skin: Warm, dry with normal turgor. Normal color with no rashes, no lesions, and no evidence of cellulitis. MS/ Extremity: Pulses equal, no cyanosis. Neurovascular intact. Full, normal range of motion. 12:36 Cardiovascular: Rate: tachycardic, actual rate is 141 bpm, Rhythm: regular, Pulses: no pulse deficits are appreciated, Heart sounds: normal, normal S1and S2. 12:36 Respiratory: Exam negative for acute changes, respiratory distress, shortness of breath, Breath sounds: are clear throughout. 12:36 Abdomen/GI: Inspection: obese Palpation: abdomen is soft and non-tender, in all quadrants. 12:36 Neuro: Exam negative for acute changes, Orientation: is normal, Mentation: is normal, Motor: is normal, moves all fours. Vital Signs: 12:30 BP 124 / 77; Pulse 145; Resp 18; Temp 99.2(O); Pulse Ox 96% ; Weight 83.91 kg; Pain ap3 8/10; 13:48 Pulse 127; Pulse Ox 96% ; ap3 14:45 BP 92 / 52; Pulse 118; Pulse Ox 97% on R/A; ap3 16:52 BP 96 / 58; Pulse 122; Temp 98.7(O); Pulse Ox 98% ; ap3 18:20 BP 95 / 65; Pulse 110; Pulse Ox 97% on R/A; ap3 19:25 BP 96 / 56; Pulse 116; Resp 13; Pulse Ox 97% ; jj7 20:03 BP 105 / 64; Pulse 118; Resp 21; Pulse Ox 98% ; jj7 21:40 BP 104 / 63; Pulse 117; Resp 17; Pulse Ox 96% ; jj7 22:10 BP 143 / 76; Pulse 111; Resp 20; Pulse Ox 98% ; jj7 22:56 BP 141 / 76; Pulse 94; Resp 15; Pulse Ox 96% ; jj7 MDM: 12:42 Patient medically screened. pm1 14:15 Differential diagnosis: acute myocardial infarction, coronary artery disease chest wall pm1 pain, esophagitis, gastritis, gastroesophageal reflux disease (GERD), pulmonary embolus, Pulmonary Embolus. 14:15 VIKRAM Risk Score: 1 - patient's age is greater or equal to 65 years, TOTAL SCORE = 1. pm1 21:20 Data reviewed: vital signs. pm1 21:26 ED course: ER Reviewed prior to our visit 2 days ago patient presentation of pm1 tachycardia at that time in was given metoprolol which improved his rate. Discussed with patient his home medications and patient reports metoprolol is a medication that he use to take that he is currently compliant with. We will give patient metoprolol in the ER and advised follow-up with PCP for continued management. 21:54 External Records Reviewed: Inpatient record: Reviewed patient visit and discharge on pm1 04/30/2022, patient takes metoprolol 50 mg PO BID. 22:15 Management of patient was discussed with the following: Vascular Surgeon: Optical Fabricator Dr. apolinar Holman. I discussed the case with Dr Holman after talking to Dr. Sifuentes regarding plan of care after the results for the CT PE protocol returned with borderline to mild cardiomegaly with pericardial effusion to 15 mm in thickness posteriorly. Dr. Sifuentes suggested consulting with Dr Holman to see if he can reasonably follow up for outpatient echocardiogram. Discussed case with Dr Holman and patient can go to the clinic on , 2 days for follow up. 22:28 ED course: Patient reports planned compliance with his metoprolol twice daily. pm1 Therefore will prescribe patient metoprolol and planned follow-up with Dr. Holman in 2 days. 10/22 12:36 Order name: Basic Metabolic Panel; Complete Time: 15:17 sp3 10/22 12:36 Order name: CBC with Diff; Complete Time: 14:06 sp3 10/22 12:36 Order name: LFT's; Complete Time: 15: sp3 10/22 12:36 Order name: Magnesium; Complete Time: 15:17 sp3 /10 12:36 Order name: NT PRO-BNP; Complete Time: 15:17 10/22 12:36 Order name: PT-INR; Complete Time: 15:24 10/22 12:36 Order name: Troponin HS; Complete Time: 15:17 10/22 12:36 Order name: XRAY Chest (1 view); Complete Time: 13:22 10/22 12:46 Order name: COVID-19/FLU A+B; Complete Time: 15:05 pm10/22 14:14 Order name: D-Dimer; Complete Time: 15:24 pm10/22 15:25 Order name: CT Chest For PE Angio; Complete Time: 22:03 pm10/22 19:15 Order name: Troponin High Sensitivity; Complete Time: 20:02 pm10/22 12:36 Order name: EKG; Complete Time: 12:36 10/22 12:36 Order name: Cardiac monitoring; Complete Time: 12:37 10/22 12:36 Order name: EKG - Nurse/Tech; Complete Time: 12:37 10/22 12:36 Order name: IV Saline Lock; Complete Time: 13:34 10/22 12:36 Order name: Labs collected and sent; Complete Time: 13:34 10/22 12:36 Order name: O2 Per Protocol; Complete Time: 12:37 10/22 12:36 Order name: O2 Sat Monitoring; Complete Time: 12:37 10/22 14:03 Order name: Labs - recollect needed: recollect blue and green tube, fill blue to the bd line; Complete Time: 14:45 EC: Rate is 143 beats/min. Rhythm is regular, Sinus tachycardia. QRS [place] is Normal. [place] pm1 interval is normal. QRS interval is normal. QT interval is normal. No Q waves. T waves are Normal. No ST changes noted. Clinical impression: Sinus tachycardia. Administered Medications: 13:25 Drug: NS 0.9% 1000 ml Route: IV; Rate: 1000 ml; Site: left antecubital; ap3 22:15 Follow up: IV Status: Completed infusion jj7 13:25 Drug: Dilaudid (HYDROmorphone) 1 mg Route: IVP; Site: left antecubital; ap3 14:13 Follow up: Response: No adverse reaction; Pain is decreased ap3 17:22 Follow up: Response: No adverse reaction; Pain is decreased ap3 13:25 Drug: Zofran (Ondansetron) 4 mg Route: IVP; Site: left antecubital; ap3 14:13 Follow up: Response: No adverse reaction ap3 13:25 Drug: Pepcid (famotidine) 20 mg Route: IVP; Site: left antecubital; ap3 14:13 Follow up: Response: No adverse reaction ap3 17:21 Drug: NS 0.9% 500 ml Route: IV; Rate: bolus; Site: left antecubital; ap3 22:10 Drug: Metoprolol TARTRATE 50 mg Route: PO; jj7 23:00 Follow up: Response: Marked relief of symptoms jj7 Disposition Summary: 10/22/22 22:23 Discharge Ordered Location: Home pm1 Problem: new pm1 Symptoms: have improved pm1 Condition: Stable pm1 Diagnosis - Chest pain, unspecified pm1 - Pericardial effusion pm1 Followup: pm1 - With: Emergency Department - When: As needed - Reason: Worsening of condition Followup: pm1 - With: Óscar Holman MD - When: 10/24/2022 - Reason: Recheck today's complaints, Continuance of care, Re-evaluation by your physician Discharge Instructions: - Discharge Summary Sheet pm1 - Nonspecific Chest Pain, Adult pm1 - Pericardial Effusion pm1 Forms: - Medication Reconciliation Form pm1 - Thank You Letter pm1 - Antibiotic Education pm1 - Prescription Opioid Use pm1 Prescriptions: - Metoprolol Tartrate 50 mg Oral Tablet - take 1 tablet by ORAL route 2 times per day take with meal; 10 tablet; Refills: pm1 0, Product Selection Permitted Signatures: Dispatcher [employer] EDMS Karin Solorzano Corey, PA PA cp Marinas, Patrick, AIDE UNDERWRITING MANAGER pm1 Katharine Boogie RN RN ap3 Rosa Harrison MD MD sp3 Ravi Peck RN RN jj7 Corrections: (The following items were deleted from the chart) 12:35 12:34 Home Meds: hydromorphone 4 mg Oral tab 1 tab three times a day; ap3 ap3 12:35 12:34 [place] Meds: Klonopin 2 mg Oral TbDi 2 tabs 4 times a day; ap3 ap3
--- NOTE | 2022-10-22 22:24 | ER ---
Nurse's Notes [facility] Name: Kiel Ngo Age: 72 yrs Sex: Male : 1950 Arrival Date: 10/22/2022 Time: 12:30 Bed 17 Private MD: Diagnosis: Chest pain, unspecified;Pericardial effusion Presentation: 10/22 12:30 Chief complaint: Patient states: he started having chest pain after drinking a coke ap3 this morning at 0600. patient states the pain is mid sternal and is able to be replicated when he takes a deep breath. patient states pain is a 8/10. Coronavirus screen: At this time, the client does not indicate any symptoms associated with coronavirus-19. Ebola Screen: No symptoms or risks identified at this time. Initial Sepsis Screen: Does the patient meet any 2 criteria? HR > 90 bpm. Does the patient have a suspected source of infection? No. Patient's initial sepsis screen is negative. Risk Assessment: Do you want to hurt yourself or someone else? Patient reports no desire to harm self or others. Onset of symptoms was October 22, 2022 at 06:00. 12:30 Method Of Arrival: EMS: [facility] ap3 12:30 Acuity: JOZEF 3 ap3 Triage Assessment: 12:35 General: Appears in no apparent distress. Behavior is calm, cooperative. Pain: ap3 Complains of pain in mid-sternal area Pain does not radiate. Pain currently is 8 out of 10 on a pain scale. Alleviated by rest, Aggravated by deep inspirations. Neuro: Level of Consciousness is awake, alert, obeys commands, Oriented to person, place, time, Speech is normal. Cardiovascular: Reports chest pain, Rhythm is sinus tachycardia. Respiratory: Airway is patent Respiratory effort is even, unlabored. Historical: - Allergies: 12:34 Demerol; ap3 12:34 metformin; ap3 12:34 Morphine; ap3 - PMHx: 12:34 Atrial fibrillation; chronic back pain; Chronic right leg pain; neuropathy; ap3 - PSHx: 12:34 back sx; PANCREAS SX; R. Ankle SX; ap3 - Immunization history:: Client reports receiving the 2nd dose of the Covid vaccine. - Social history:: Smoking status: Patient denies any tobacco usage or history of. Screenin:36 Abuse screen: Denies threats or abuse. Nutritional screening: No deficits noted. ap3 Tuberculosis screening: No symptoms or risk factors identified. 13:03 [facility] ED Fall Risk Assessment (Adult) History of falling in the last 3 months, ap3 including since admission No falls in past 3 months (0 pts). Assessment: 12:36 Pain: Pain began suddenly, at 0600. ap3 19:25 Reassessment: ASSUMED CARE OF PT. PT LYING IN BED WATCHING TV. NO DISTRESS NOTED. VS jj7 STABLE. BP SLIGHTLY DECREASED. IV FLUIDS STILL INFUSING. NO NEEDS AT THIS TIME. General: Appears in no apparent distress. unkempt, Behavior is calm, cooperative, appropriate for age. 19:50 Reassessment: IV INFILTRATED. FLUIDS STOPPED. jj7 20:15 Reassessment: ELVIA CHARGE NURSE AT BEDSIDE INSERTING IV LINE. CT CALLED TO COME GET xiangMichael PT FOR CT. Vital Signs: 12:30 BP 124 / 77; Pulse 145; Resp 18; Temp 99.2(O); Pulse Ox 96% ; Weight 83.91 kg; Pain ap3 8/10; 13:48 Pulse 127; Pulse Ox 96% ; ap3 14:45 BP 92 / 52; Pulse 118; Pulse Ox 97% on R/A; ap3 16:52 BP 96 / 58; Pulse 122; Temp 98.7(O); Pulse Ox 98% ; ap3 18:20 BP 95 / 65; Pulse 110; Pulse Ox 97% on R/A; ap3 19:25 BP 96 / 56; Pulse 116; Resp 13; Pulse Ox 97% ; jj7 20:03 BP 105 / 64; Pulse 118; Resp 21; Pulse Ox 98% ; jj7 21:40 BP 104 / 63; Pulse 117; Resp 17; Pulse Ox 96% ; jj7 22:10 BP 143 / 76; Pulse 111; Resp 20; Pulse Ox 98% ; jj7 22:56 BP 141 / 76; Pulse 94; Resp 15; Pulse Ox 96% ; jj7 ED Course: 12:30 Patient arrived in ED. ap3 12:34 Triage completed. ap3 12:35 Rosa Harrison MD is Attending Physician. sp3 12:36 Arm band placed on right wrist. ap3 12:36 Patient has correct armband on for positive identification. Bed in low position. Call ap3 light in reach. Side rails up X2. compliance monitor on. Pulse ox on. NIBP on. Door closed. Noise minimized. Warm blanket given. 12:36 Patient maintains SpO2 saturation greater than 95% on room air. ap3 12:37 Katharine Boogie, DIEGO is Primary Nurse. ap3 12:37 EKG done, by ED staff, reviewed by Tay Olsen NP. ap3 12:42 Tay Olsen NP is PHCP. pm1 13:00 XRAY Chest (1 view) In Process Unspecified. EDMS 13:25 Inserted saline lock: 20 gauge in left antecubital area, using aseptic technique. Blood ap3 collected. 15:22 Notified ED physician of a critical lab result(s). D Dimer [id number]. kr3 19:19 Primary Nurse role handed off by Katharine Boogie, DIEGO mw2 20:23 Inserted saline lock: 20 gauge in right antecubital area, using aseptic technique. bb 20:42 CT Chest For PE Angio In Process Unspecified. EDMS 20:57 Ravi Peck, DIEGO is Primary Nurse. jj7 21:23 Accessed Powerglide midline 20g 10cm to left upper arm using hospital protocol with bb good blood return and flushes easily pt tolerated well. 22:21 Óscar Holman MD is Referral Physician. pm1 23:10 No provider procedures requiring assistance completed. IV discontinued, intact, jj7 bleeding controlled, No redness/swelling at site. Pressure dressing applied. Administered Medications: 13:25 Drug: NS 0.9% 1000 ml Route: IV; Rate: 1000 ml; Site: left antecubital; ap3 22:15 Follow up: IV Status: Completed infusion jj7 13:25 Drug: Dilaudid (HYDROmorphone) 1 mg Route: IVP; Site: left antecubital; ap3 14:13 Follow up: Response: No adverse reaction; Pain is decreased ap3 17:22 Follow up: Response: No adverse reaction; Pain is decreased ap3 13:25 Drug: Zofran (Ondansetron) 4 mg Route: IVP; Site: left antecubital; ap3 14:13 Follow up: Response: No adverse reaction ap3 13:25 Drug: Pepcid (famotidine) 20 mg Route: IVP; Site: left antecubital; ap3 14:13 Follow up: Response: No adverse reaction ap3 17:21 Drug: NS 0.9% 500 ml Route: IV; Rate: bolus; Site: left antecubital; ap3 22:10 Drug: Metoprolol TARTRATE 50 mg Route: PO; jj7 23:00 Follow up: Response: Marked relief of symptoms jj7 Medication: 13:03 VIS not applicable for this client. ap3 Outcome: 22:23 Discharge ordered by . pm1 23:15 Discharged to home via ambulance. jj7 23:15 Condition: stable 23:15 Discharge instructions given to patient, Instructed on discharge instructions, follow up and referral plans. medication usage, Demonstrated understanding of instructions, follow-up care, medications, Prescriptions given X 1. 23:27 Patient left the ED. bb Signatures: Dispatcher [employer] EDMS Elvia Lugo RN RN bb Tay Olsen, AIDE [employer] ADMINISTRATOR pm1 Katharine Boogie RN RN ap3 Redd Ordoñez mw2 Rosa Harrison MD MD sp3 Savanna Hoang RN RN kr3 Ravi Peck RN RN jj7 Corrections: (The following items were deleted from the chart) 12:35 12:34 Home Meds: hydromorphone 4 mg Oral tab 1 tab three times a day; ap3 ap3 12:35 12:34 Home Meds: Klonopin 2 mg Oral TbDi 2 tabs 4 times a day; ap3 ap3
[2022-10-23 00:59] VITALS: TEMP 98.7
[2022-10-23 01:06] VITALS: BP 141/76; O2SAT 96
--- NOTE | 2022-10-23 14:56 | EKG ---
Test Date: 2022-10-22 Test Time: 12:23:33 Boiler Erector: ALP MEASUREMENT RESULTS: Intervals: Rate: 143 NM: 138 QRSD: 76 QT: 280 QTc: 432 [place]: P: 56 NM: 138 QRS: 30 T: 42 INTERPRETIVE STATEMENTS: Sinus tachycardia Possible Left atrial enlargement Low voltage QRS Borderline ECG Compared to ECG 10/20/2022 03:37:00 Low QRS voltage now present Myocardial infarct finding no longer present Myocardial infarct finding no longer present Electronically Signed On 10-23-22 14:54:39 [employer]ER by Óscar Holman
== END 2022-10-22 23:27 | disposition home or self-care (01) ==
LOC: ER 12:28
DX: I31.39 Other pericardial effusion (noninflammatory) (principal); I48.91 Unspecified atrial fibrillation; Z20.822 Contact with and (suspected) exposure to COVID-19; Z88.5 Allergy status to narcotic agent; Z88.8 Allergy status to other drugs, medicaments and biological substances
CPT/HCPCS: 96361; 93005; 85025; 80048; 36415; 83735; 85610; 85379; 80076; 84484 ×2; 83880; 0240U; 71275; 71045; 96375; 96374; 99285; Q9967; J1170; J7030 ×2; J2405

== ENCOUNTER 2022-10-24 19:46 | Emergency (ER) | payer OTHER ==
--- OUTSIDE RECORDS SUMMARY | 2022-10-24 19:55 | XMS REPORT | Continuity of Care Document ---
:[address] [facility] t Address [address] [place] [address] Care Team Providers Name Role Phone CALVIN [...] PACO LACEY Attending Clinician Unavailable Doctor Unassigned, [place] Attending Clinician Unavailable Wilder VILALREAL, Angi K.HWong Attending Clinician Jl Mccabe MD Attending Clinician Kelly Washington MD Attending Clinician [phone] Mukul Gallardo MD Attending Clinician MUKUL GALLARDO Admitting Clinician Unavailable Harrison MD, Premal G Admitting Clinician KRUPA VIKA G Admitting Clinician Unavailable Nicci VILLAREAL, Mukul Anand Admitting Clinician Payers Payer Name Policy Type Policy Number Effective Date Expiration Date Tony doe MEDICARE PART A [id number] 2007 \\T\\ B 00:00:00 [employer] INDEMNITY [id number] 2016 00:00:00 MEDICARE PART A [id number] 2014 \\T\\ B - MEDICARE 00:00:00 INDEMNITY/TRADITIO [id number] 1002-04-03 NAL CHOICE - [employer] 00:00:00 Problems Condition [...] ents Source Name Type Date Date Clinician [place] [employer] Active Rash 2019- Univers ty to [...] Quantity Comments Source Exposure to Not sure [place] of SARS-CoV-2 [place] [facility] (event) Branch History of Chews Tobacco University of tobacco use [place] [facility] History SDOH 2020-11-17 2020-11-17 5 University o f Financial 00:00:00 00:00:00 [place] [facility] History SDMO Food 2020-11-17 2020-11-17 1 Univers ity of Worry 00:00:00 00:00:00 [place] [facility] History SDOH Food 2020-11-17 2020-11-17 1 Univers ity of Scarcity 00:00:00 00:00:00 [place] [facility] History SDOH 2020-11-17 2020-11-17 1 University o f Transport Med 00:00:00 00:00:00 [place] Medic al [facility] History SDOH 2020-11-17 2020-11-17 1 University o f Transport Non-Med 00:00:00 00:00:00 [facility] edical Branch Education 2020-11-16 2020-11-16 21 [place] of 00:00:00 00:00:00 [facility] Alcohol intake 2020-11-16 2020-11-16 Ex-drinker [facility] 00:00:00 00:00:00 (finding) [facility] Tobacco use and 2020-08-21 2020-08-21 Former user Universi ty of exposure 00:00:00 00:00:00 [facility] Tobacco Comment 2020-08-21 2020-08-21 quit 10 years Univer sity of 00:00:00 00:00:00 ago, started in [place] Med ical 2nd year of Branch college (~40 years) Alcohol Comment 2020-08-21 2020-08-21 Used to have 2-3 Uni versity of 00:00:00 00:00:00 six-packs of [place] Medica l beer daily x 20 Branch years, quit 2004 History [facility] 2020-08-21 2020-08-21 99 University o f Alcohol Frequency 00:00:00 00:00:00 [place] M edical Branch History [facility] 2020-08-21 2020-08-21 99 [place] o f Alcohol Std 00:00:00 00:00:00 [place] [facility] Drinks Branch History [facility] 2020-08-21 2020-08-21 99 [place] o f Alcohol Binge 00:00:00 00:00:00 [facility] [place] Sex Ass[birth year] Universit y of 00:00:00 00:00:00 [facility] Smoking Status Start Date Stop Date Source Never smoker [facility] Medications Ordered Filled Start [...] by ity of tablet 22:47: mouth at [place] 18 bedtime. Medical Branch HYDROmorpho 2020-0 Yes [...] by ity of tablet 22:47: mouth at [place] 18 bedtime. Medical Branch HYDROmorpho 0 Yes [...] by ity of tablet 16:47: mouth at [place] 18 bedtime. Medical Branch HYDROmorpho 0 Yes [...] 0845, Until Discontinu ed, Routine amLODIPine Yes [id number] 10mg Take 1 Univers 10 mg 3-07 tablet by ity of tablet 00:00: mouth [place] 00 daily. Medical Branch clotrimazol Yes [id number] Apply to Univers e 1 % 3-07 face/ears, ity of topical 00:00: armpits, [place] cream 00 pannus and Medical back/any Branch other rash twice a day fluocinonid 0 Yes [id number] Apply to Univers e 0.05 % 3-07 scalp ity of solution 00:00: twice a [place] 00 day Medical Branch triamcinolo Yes [id number] Apply to Univers ne 3-07 back, ity of acetonide 00:00: armpits [place] 0.1 % cream 00 and other Med ical affected Branch areas twice daily, please mix with clotrimazo le hydrOXYzine Yes [id number] 10mg Take 1 Univers 10 mg 3-07 tablet by ity of tablet 00:00: mouth 2 00 (two) Medical times Branch daily. amLODIPine Yes [id number] 10mg Take 1 Univers 10 mg 3-07 tablet by ity of tablet 00:00: mouth [place] 00 daily. Medical Branch clotrimazol Yes [id number] Apply to Univers e 1 % 3-07 face/ears, ity of topical 00:00: armpits, [place] cream 00 pannus and Medical back/any Branch other rash twice a day fluocinonid Yes [id number] Apply to Univers e 0.05 % 3-07 scalp ity of solution 00:00: twice a day Medical Branch triamcinolo Yes [id number] Apply to Univers ne 3-07 back, ity of acetonide 00:00: armpits [place] 0.1 % cream 00 and other Med ical affected Branch areas twice daily, please mix with clotrimazo le hydrOXYzine Yes [id number] 10mg Take 1 Univers 10 mg 3-07 tablet by ity of tablet 00:00: mouth 2 [place] 00 (two) Medical times Branch daily. amLODIPine Yes [id number] 10mg Take 1 Univers 10 mg 3-07 tablet by ity of tablet 00:00: mouth [place] 00 daily. Medical Branch clotrimazol 0 Yes [id number] Apply to Univers e 1 % 3-07 face/ears, ity of topical 00:00: armpits, [place] cream 00 pannus and Medical back/any Branch other rash twice a day fluocinonid 2020-0 Yes [id number] Apply to Univers e 0.05 % 3-07 scalp ity of solution 00:00: twice a day Medical Branch triamcinolo 2020-0 Yes [id number] Apply to Univers ne 3-07 back, ity of acetonide 00:00: armpits [place] 0.1 % cream 00 and other Med ical affected Branch areas twice daily, please mix with clotrimazo le hydrOXYzine Yes [id number] 10mg Take 1 Univers 10 mg 3-07 tablet by ity of tablet 00:00: mouth 2 [place] (two) Medical times Branch daily. amLODIPine Yes [id number] 10mg Take 1 Univers 10 mg 3-07 tablet by ity of tablet 00:00: mouth [place] 00 daily. Medical Branch clotrimazol Yes [id number] Apply to Univers e 1 % 3-07 face/ears, ity of topical 00:00: armpits, [place] cream 00 pannus and Medical back/any Branch other rash twice a day fluocinonid Yes [id number] Apply to Univers e 0.05 % 3-07 scalp ity of solution 00:00: twice a day Medical Branch triamcinolo 0 Yes [id number] Apply to Univers ne 3-07 back, ity of acetonide 00:00: armpits [place] 0.1 % cream 00 and other Med ical affected Branch areas twice daily, please mix with clotrimazo le hydrOXYzine Yes [id number] 10mg Take 1 Univers 10 mg 3- tablet by ity of tablet 00:00: mouth 2 (two) Medical times Branch daily. cephALEXin 2020-2020- No [id number] 500mg Take 1 Univers 500 mg -04 14- capsule by ity of capsule 00:00: 05:59 mouth [place] 00 :00 every 6 Medical (six) Branch hours for 3 days. cephALEXin 2020-0 2020- No [id number] 500mg Take 1 Univers 500 mg 3-04 14- capsule by ity of capsule 00:00: 05:59 mouth [place] 00 :00 every 6 Medical (six) Branch hours for 3 days. hydrOXYzine 2020-2020- No [id number] 10mg Take 1 Univers 10 mg 3- 03-07 tablet by ity of tablet 00:00: 00:00 mouth 2 [place] 00 :00 (two) Medical times [place] daily. morpHINE Yes 4mg 4 mg, Slow Uni vers injection 4 -06 IV Push, ity of mg 22:40: Q6HPRN, [place] 02 Starting Medical 12/16/20 [place] at 1640, Until Discontinu ed, Routine, Pain [...] 00 :00 dose, Sat Medical 12/16/20 at [place] 0515, Routine lactated 2020- No 1000mL at 125 Univ ers ringers IV 12-16 03-06 mL/hr, ity of infusion 01:00: 00:16 1,000 mL, [place] 1,000 mL 00 :00 IV Medical Infusion, [place] ONCE, 1 dose, 12/15/20 at 1900, Routine iohexol 2020- No 100mL 100 mL, Unive rs (OMNIPAQUE 12-15-05 Intravenou it y of 350 22:24: 22:24 s, ONCE, 1 [place] BULK-100 00 :00 dose, Fri Medica l mL) 12/15/20 at [place] injection 1645, 100 mL Routine cephALEXin 2020- [...] NaCl 0.9% 2020- No 500mL at 999 [facility] ers (NS) bolus 12-15-05 mL/hr, 500 it y of infusion 16:00: 15:26 mL, IV [place] 500 mL 00 :00 Piggyback, Medical ONCE, 1 Branch dose, Fri12/15/20 at 1000, STAT HYDROmorpho Yes 4mg 4 mg, [facility] ne 05 Oral, BID, ity of (DILAUDID) 15:30: First dose [place] tablet 4 mg 00 (after Medica l last Branch modificati on) on Fri12/15/20 at 0930, Until Discontinu ed, Routine amLODIPine 2020- No [id number] 10mg Take 1 Univers 10 mg 12-1507 tablet by ity of tablet 00:00: 00:00 mouth [place] 00 :00 daily. Medical Branch HYDROmorpho 2020- No 1mg 1 mg, [facility] ers ne 12-14 03-05 Oral, ity of (DILAUDID) 17:35: 15:18 Q6HPRN, [place] tablet 1 mg 30 :06 Starting Medi [facility] 12/14/20 Branch at 1135, Until Fri12/15/20 at 0918, Routine, Pain (scale 7-10) hydrOXYzine Yes 10mg 10 mg, [facility] ers (ATARAX) 304 Oral, BID, ity o f tablet 10 17:30: First dose [place] mg 00 on [facility] 12/14/20 at Branch 1130, Until Discontinu ed, Routine lisinopriL 0 Yes 5mg 5 mg, Univer s (PRINIVIL,Z -04 Oral, ity of ESTRIL) 17:30: DAILY, [place] tablet 5 mg 00 First dose Me dical on [facility] Branch 12/14/20 at 1130, Until Discontinu ed, Routine triamcinolo 2020- No [id number] Apply to Univers ne 12-14 back, ity of acetonide 00:00: 00:00 armpits [place] 0.1 % cream 00 :00 and other Med ical affected Branch areas twice daily, please mix with clotrimazo le clotrimazol 2020- No [id number] Apply to Univers e 1 % 12-14 face/ears, ity of topical 00:00: 00:00 armpits, [place] cream 00 :00 pannus and Medical back/any Branch other rash twice a day fluocinonid 2020- No [id number] Apply to Univers e 0.05 % 12-14 scalp ity of solution 00:00: 00:00 twice a [place] 00 :00 day Medical Branch hydrOXYzine 2020- No [id number] 10mg Take 1 Univers 10 mg 12-14 [...] 1 [place] injection 4 00 :00 dose, [facility] ical mg 12/12/20 at Branch 2300, Routine traMADoL 2020- No 50mg 50 mg, Univer s (ULTRAM) 12-13 03-03 Oral, ity of tablet 50 03:45: 03:34 ONCE, 1 [place] mg 00 :00 dose, [facility] 12/12/20 at Branch 2145, Routine insulin Yes 15U 15 Units, [facility] rs glargine 12-12 Subcutaneo ity o f (LANTUS 15:00: us, DAILY, [place] U-100) 00 First dose Medical injection on [facility] 15 Units 12/12/20 at 0900, Until Discontinu ed hydrOXYzine 2020- No 10mg 10 mg, Uni vers (ATARAX) 12-12 03-02 Oral, ity of tablet 10 08:15: 07:33 ONCE, 1 [place] mg 00 :00 dose, [facility] 12/12/20 at Branch 0215, Routine mirtazapine Yes 7.5mg 7.5 mg, Un toi (REMERON) 3-02 Oral, QHS, ity of tablet 7.5 03:00: First dose [place] mg 00 on [facility] 12/11/20 at Branch 2100, Until Discontinu [...] Oral, ity of (TYLENOL 23:23: 13:49 Q6HPRN, [place] #3) 300-30 43 :08 Starting Medic al [...] 00 Fri12/11/20 Me dical cream at 1315, [place] Until Discontinu ed, Routine hydrocortis 0 Yes [...] ity of 1,000 mg in 19:00: 17:35 [place], [place] NaCl 0.9% 00 :26 Q8H ABX, [...] ed, Routine insulin Yes 5U 5 Units, [facility] lispro 12-11 Subcutaneo ity of (human) 18:00: us, TID [place] (HumaLOG 00 MEALS, Medical U-100) First dose Branch injection 5 on Mon Units 12/11/20 at 1200, Until Discontinu ed Polyethylen Yes 17g 17 g, [facility] rs e Glycol 12-11 Oral, ity of 3350 17:47: U61LFAY, [place] (MIRALAX) 05 Starting Medica l powder 17 g 12/11/20 Br anch at 1147, Until Discontinu ed, Routine, Constipati on acetaminoph Yes 650mg 650 mg, Un toi en 12-11 Oral, ity of (TYLENOL) 16:51: Q6HPRN, [place] tablet 650 28 Starting Medic al mg [...] 0630, STAT piperacilli No 3.375g 3.375 g, [facility] n-tazobacta 12-11 IV ity of m (ZOSYN) 12:00: 17:48 Piggyback, [place] injection 00 :24 Q6H, First Medi jose c 3.375 g dose on Branch Fri12/11/20 at 0600, Until Discontinu ed, KAHLIL
Re ason for Anti-Infec tive: Empiric Therapy for Suspected Infection< br>Empiric Therapy Site: Skin / Soft tissue
Duration of therapy: 72 hours sennosides- Yes [id number] 1{tbl} Take 1 [facility] docusate 2-09 tablet by ity of sodium 00:00: mouth 2 [place] 8.6-50 mg 00 (two) Medical per tablet times Branch daily. hydrocortis Yes [id number] Apply to [facility] one 2.5 % 11-21 affected ity of cream 00:00: area(s) 2 [place] 00 (two) Medical times Branch daily. blood sugar Yes [id number] Use to [facility] diagnostic 2 check ity of (FREESTYLE 00:00: blood [place] LITE 00 glucose Medical STRIPS) 4-5 times Branch strip daily. Polyethylen Yes [id number] 17g Take 1 Univers e Glycol 2-09 Packet by ity of 3350 17 00:00: mouth [place] gram powder 00 every 24 Medi jose c (twenty-fo Branch ur) hours as needed for Constipati on. sennosides- Yes [id number] 1{tbl} Take 1 Univers docusate 2-09 tablet by ity of sodium 00:00: mouth 2 [place] 8.6-50 mg 00 (two) Medical per tablet times Branch daily. hydrocortis Yes [id number] Apply to Univers one 2.5 % 2-09 affected ity of cream 00:00: area(s) 2 [place] 00 (two) Medical times Branch daily. blood sugar Yes [id number] Use to Univers diagnostic 11-21 check ity of (FREESTYLE 00:00: blood [place] LITE 00 glucose Medical STRIPS) 4-5 times Branch strip daily. Polyethylen Yes [id number] 17g Take 1 Univers e Glycol 2-09 Packet by ity of 3350 17 00:00: mouth [place] gram powder 00 every 24 Medi jose c (twenty-fo Branch ur) hours as needed for Constipati on. sennosides- Yes [id number] 1{tbl} Take 1 Univers docusate 2-09 tablet by ity of sodium 00:00: mouth 2 [place] 8.6-50 mg 00 (two) Medical per tablet times Branch daily. hydrocortis Yes [id number] Apply to Univers one 2.5 % 2-09 affected ity of cream 00:00: area(s) 2 [place] 00 (two) Medical times Branch daily. blood sugar Yes [id number] Use to Univers diagnostic 11-21 check ity of (FREESTYLE 00:00: blood [place] LITE 00 glucose Medical STRIPS) 4-5 times Branch strip daily. Polyethylen 2020-0 Yes [id number] 17g Take 1 Univers e Glycol 2-09 Packet by ity of 3350 17 00:00: mouth [place] gram powder 00 every 24 Medi jose c (twenty-fo Branch ur) hours as needed for Constipati on. sennosides- Yes [id number] 1{tbl} Take 1 Univers docusate 2-09 tablet by ity of sodium 00:00: mouth 2 [place] 8.6-50 mg 00 (two) Medical per tablet times Branch daily. hydrocortis Yes [id number] Apply to [facility] one 2.5 % 11-21 affected ity of cream 00:00: area(s) 2 [place] 00 (two) Medical times Branch daily. blood sugar Yes [id number] Use to [facility] diagnostic 11-21 check ity of (FREESTYLE 00:00: blood [place] LITE 00 glucose Medical STRIPS) 4-5 times Branch strip daily. Polyethylen Yes [id number] 17g Take 1 Univers e Glycol 11-21 Packet by ity of 3350 17 00:00: mouth [place] gram powder 00 every 24 Medi jose c (twenty-fo Branch ur) hours as needed for Constipati on. Insulin 2020- No [id number] 15U inject 15 Univers Glargine 11-21- Units ity of (LANTUS 00:00: 05:59 [facility] :00 skin every Medic al U-100 morning Branch INSULIN) for 30 100 unit/mL days. (3 mL) injection venlafaxine 2020- No [id number] 150mg Take 1 Univers XR 150 mg 11-21 capsule by ity of 24 hr 00:00: 05:59 mouth 3 [place] capsule 00 :00 (three) Medical times Branch daily for 30 days. Insulin 2020- No [id number] 15U inject 15 Univers Glargine 11-21-12 Units ity of (LANTUS 00:00: 05:59 under the [facility] [employer] SOLOSTAR 00 :00 skin every Medic al U-100 morning Branch INSULIN) for 30 100 unit/mL days. (3 mL) injection venlafaxine 2020- No [id number] 150mg Take 1 Univers XR 150 mg 11-21- capsule by ity of 24 hr 00:00: 05:59 mouth 3 [place] capsule 00 :00 (three) Medical times Branch daily for 30 days. triamcinolo 2020- No [id number] Apply to [facility] ne 11-21-04 area(s) 2 ity of acetonide 00:00: 00:00 (two) [place] 0.1 % cream 00 :00 times Medical daily. Branch cephALEXin 2020- No [id number] 1000mg Take 2 Univers 500 mg 11-21 capsules ity of capsule 00:00: 00:00 by mouth 3 [place] 00 :00 (three) Medical times Branch daily. doxycycline 2020- No [id number] 100mg Take 1 Univers hyclate 100 11-21 capsule by i ty of mg capsule 00:00: 00:00 mouth [place] 00 :00 every 12 Medical (twelve) Branch hours. lactobacill 2020- No [id number] 1{tbl} Take 1 Univers us 11-21 tablet by ity of acidophilus 00:00: 00:00 mouth 2 [place] 25 million 00 :00 (two) Medical cell -100 times Branch mg captab daily. bisacodyL 2020- No [id number] 10mg Insert 1 Univers 10 mg 11-21 Suppositor ity of suppository 00:00: 00:00 y into [place] 00 :00 rectum at Medical bedtime as Branch needed for Constipati on. ALPRAZolam 2020- No [id number] .25mg Take 1 Univers (XANAX) 11-21 tablet by ity of 0.25 mg 00:00: 00:00 mouth 2 [place] tablet 00 :00 (two) Medical times Branch daily. hydrOXYzine 2020- No [id number] 20mg Take 2 Univers 10 mg 11-21 [...] 3 ity of 6 mg 01:13: (three) [place] capsule 36 times Medical daily. Branch Insulin 2019-10 Yes 15U inject 15 Unive rs Glargine 1-12 Units ity of (LANTUS 01:13: under the [place] SOLOSTAR) 36 skin. Medical 100 unit/mL Branch (3 mL) InPn INSULIN 2019-10 Yes 5U inject 5 Univer s ASPART 1-12 Units ity of (NOVOLOG 01:13: under the [facility] FLEXPEN SC) 36 skin. Medical Branch [...] 3 ity of 6 mg 01:13: (three) [place] capsule 36 times Medical daily. Branch Insulin 2019-10 Yes 15U inject 15 Unive rs Glargine 1-12 Units ity of (LANTUS 01:13: under the [place] SOLOSTAR) 36 skin. Medical 100 unit/mL Branch (3 mL) InPn INSULIN 2019-10 Yes 5U inject 5 Univer s ASPART 1-12 Units ity of (NOVOLOG 01:13: under the [facility] FLEXPEN SC) 36 skin. Medical Branch [...] Units ity of (LANTUS 01:13: under the [place] SOLOSTAR) 36 skin. Medical 100 unit/mL Branch (3 mL) InPn INSULIN 2019-10 Yes 5U inject 5 Univer s ASPART 1-12 Units ity of (NOVOLOG 01:13: under the [facility] s FLEXPEN SC) 36 skin. Medical Branch ALPRAZolam 2019-10 Yes .25mg Take 0.25 U nivers (XANAX) 1-12 mg by ity of 0.25 mg 01:13: mouth 2 [place] tablet 36 (two) Medical times Branch daily. HYDROXYZINE 2019-10 2020- No 25mg Take 25 mg Univers PAMOATE 1-11 11-11 by mouth ity of ORAL 20:04: 00:00 daily. [place] 34 :00 Medical Branch hydrocortis 2019-10 Yes [id number] Apply to Univers one 2.5 % 1-11 affected ity of cream 00:00: area(s) 2 [place] 00 (two) Medical times Branch daily. hydrOXYzine 2019-10 Yes [id number] 20mg Take 2 Univers 10 mg 1-11 tablets by ity of tablet 00:00: mouth [place] 00 every 8 Medical (eight) Branch hours as needed for Itching or Anxiety. Polyethylen 2019-10 Yes [id number] 17g Take 1 Univers e Glycol 1-11 Packet by ity of 3350 17 00:00: mouth [place] gram powder 00 every 24 Medi jose c (twenty-fo Branch ur) hours as needed for Constipati on. hydrocortis 2019-10 Yes [id number] Apply to Univers one 2.5 % 1-11 affected ity of cream 00:00: area(s) 2 [place] 00 (two) Medical times Branch daily. hydrOXYzine 2019- Yes [id number] 20mg Take 2 Univers 10 mg 1-11 tablets by ity of tablet 00:00: mouth [place] 00 every 8 Medical (eight) Branch hours as needed for Itching or Anxiety. Polyethylen 2019- Yes [id number] 17g Take 1 Univers e Glycol 1-11 Packet by ity of 3350 17 00:00: mouth [place] gram powder 00 every 24 Medi jose c (twenty-fo Branch ur) hours as needed for Constipati on. hydrocortis 2019- Yes [id number] Apply to Univers one 2.5 % 1-11 affected ity of cream 00:00: area(s) 2 [place] (two) Medical times Branch daily. hydrOXYzine 2019-10 Yes [id number] 20mg Take 2 Univers 10 mg 1-11 tablets by ity of tablet 00:00: mouth [place] 00 every 8 Medical (eight) Branch hours as needed for Itching or Anxiety. Polyethylen 2019- Yes [id number] 17g Take 1 Univers e Glycol 1-11 Packet by ity of 3350 17 00:00: mouth [place] gram powder 00 every 24 Medi jose c (twenty-fo Branch ur) hours as needed for Constipati on. hydrocortis 2019-10 Yes [id number] Apply to Univers one 2.5 % 1-11 affected ity of cream 00:00: area(s) 2 [place] (two) Medical times Branch daily. hydrOXYzine 2019-10 Yes [id number] 20mg Take 2 Univers 10 mg 1-11 tablets by ity of tablet 00:00: mouth [place] 00 every 8 Medical (eight) Branch hours as needed for Itching or Anxiety. Polyethylen 2019-10 Yes [id number] 17g Take 1 Univers e Glycol 1-11 Packet by ity of 3350 17 00:00: mouth [place] gram powder 00 every 24 Medi jose c (twenty-fo Branch ur) hours as needed for Constipati on. hydrocortis 2019-10 Yes [id number] Apply to Univers one 2.5 % 1-11 affected ity of cream 00:00: area(s) 2 [place] 00 (two) Medical times Branch daily. hydrOXYzine 2019-10 Yes [id number] 20mg Take 2 Univers 10 mg 1-11 tablets by ity of tablet 00:00: mouth [place] 00 every 8 Medical (eight) Branch hours as needed for Itching or Anxiety. Polyethylen 2019- Yes [id number] 17g Take 1 Univers e Glycol 1-11 Packet by ity of 3350 17 00:00: mouth [place] gram powder 00 every 24 Medi jose c (twenty-fo Branch ur) hours as needed for Constipati on. hydrocortis 2019-10 Yes [id number] Apply to Univers one 2.5 % 1-11 affected ity of cream 00:00: area(s) 2 [place] 00 (two) Medical times Branch daily. hydrOXYzine 2019- Yes [id number] 20mg Take 2 Univers 10 mg 1-11 tablets by ity of tablet 00:00: mouth [place] 00 every 8 Medical (eight) Branch hours as needed for Itching or Anxiety. Polyethylen 2019- Yes [id number] 17g Take 1 Univers e Glycol 1-11 Packet by ity of 3350 17 00:00: mouth [place] gram powder 00 every 24 Medi jose c (twenty-fo Branch ur) hours as needed for Constipati on. hydrocortis 2019- Yes [id number] Apply to Univers one 2.5 % 1-11 affected ity of cream 00:00: area(s) 2 [place] 00 (two) Medical times Branch daily. hydrOXYzine 2019- Yes [id number] 20mg Take 2 Univers 10 mg 1-11 tablets by ity of tablet 00:00: mouth [place] 00 every 8 Medical (eight) Branch hours as needed for Itching or Anxiety. Polyethylen 2019- Yes [id number] 17g Take 1 Univers e Glycol 1-11 Packet by ity of 3350 17 00:00: mouth [place] gram powder 00 every 24 Medi jose c (twenty-fo Branch ur) hours as needed for Constipati on. triamcinolo 2019- 2020- No [id number] Apply to Univers ne 10-23 area(s) 2 ity of acetonide 00:00: 05:59 (two) [place] 0.1 % cream 00 :00 times Medical daily for Branch 14 days. triamcinolo 2019- 2020- No [id number] Apply to Univers ne 10-23 area(s) 2 ity of acetonide 00:00: 05:59 (two) [place] 0.1 % cream 00 :00 times Medical daily for Branch 14 days. triamcinolo 2020- 2020- No [id number] Apply to [facility] ne 10-23 area(s) 2 ity of acetonide 00:00: 05:59 (two) [place] 0.1 % cream 00 :00 times Medical daily for Branch 14 days. KCL 2019- 2020- No 40meq 40 mEq, Univers (KLOR-CON 1-10 11-10 Oral, ONCE ity of M20) tablet 16:15: 16:23 NOW, 1 [place] 40 mEq 00 :00 dose, [facility] 08/22/20 Branch at 1015, Routine HYDROmorpho 2019-10 Yes 1mg 1 mg, Unive rs ne 1-10 Oral, ity of (DILAUDID) 15:07: Q6HPRN, [place] tablet 1 mg 53 Starting [facility] 08/22/20 at 0907, Until Discontinu ed, Routine, Pain (scale 7-10) hydrocortis 2019-10 Yes Topical Uni vers one 2.5 % 1-10 (Apply To ity o f cream 02:00: Affected [place] 00 Areas), Medical BID, First Branch dose on [facility] 08/21/20 at 2000, Until Discontinu ed, Routine triamcinolo 2019-10 Yes Topical, Un toi ne 1-10 BID, First ity of acetonide 02:00: dose on [place] (TRIDERM) [facility] Medical 0.1 % cream 08/21/20 at Br anch 2000, Until Discontinu ed, Routine hydrOXYzine 2019-10 Yes 20mg 20 mg, Univ ers (ATARAX) 09 Oral, ity of tablet 20 17:39: Q8HPRN, [place] mg 12 Starting [facility] 08/21/20 at 1139, Until Discontinu ed, Routine, Itching, Anxiety sennosides- 2019-10 Yes 1{tbl} 1 tablet, Univers docusate 10-21 Oral, ity of sodium 15:00: DAILY, [place] (SENOKOT-S) 00 First dose Me dical 8.6-50 mg on [facility] per tablet 08/21/20 at 1 [...] :43 Starting Medica l mg [facility] 08/21/20 at 0656, Until Fri08/21/20 at 1139, Routine, Itching, Mild Rash, Congestion /Allergies , alternate with hydroxyzin e hydrOXYzine 2019-10- No 10mg 10 mg, Uni vers (ATARAX) 10-21 Oral, ity of tablet 10 10:20: 12:57 Q6HPRN, [place] mg 22 :12 Starting Medical [facility] 08/21/20 at 0420, Until Fri08/21/20 [...] 1 ity o f 09:30: 09:14 dose, [facility] 00 :00 08/21/20 at [facility] 0330, Branch Routine Polyethylen 2019-10 Yes 17g 17 g, [facility] Glycol 10-21 Oral, ity of 3350 08:29: [id number], [place] (MIRALAX) 09 Starting Medica l powder 17 g [facility] 08/21/20 at 0229, Until Discontinu [...] 1-3) sotalol 2019-10 2020- No Take by [facility] s (BETAPACE) 10-21 mouth ity of 240 mg 07:43: 00:00 every 12 [place] tablet 30 :00 (twelve) Medical hours. Branch blood sugar Yes Use to [facility] ers diagnostic 4-25 check ity of (FREESTYLE 00:00: blood [place] LITE 00 glucose Medical STRIPS) 4-5 times Branch strip daily. blood sugar Yes Use to [facility] ers diagnostic 4-25 check ity of (FREESTYLE 00:00: blood [place] LITE 00 glucose Medical STRIPS) 4-5 times Branch strip daily. blood sugar Yes Use to [facility] ers diagnostic 4-25 check ity of (FREESTYLE 00:00: blood [place] LITE 00 glucose Medical STRIPS) 4-5 times Branch strip daily. blood sugar Yes Use to [facility] ers diagnostic 4-25 check ity of [...] 2021-08-22 13:00:00 148 mm[Hg] Univer sity of [facility] Diastolic blood 2021-08-22 13:00:00 84 mm[Hg] Unive rsity of [facility] Heart rate 2021-08-22 13:00:00 103 /min [facility] Respiratory rate 2021-08-22 13:00:00 18 /min [facility] Oxygen saturation in 2021-08-22 13:00:00 95 /min University of Arterial blood by [facility] Pulse oximetry [place] Body temperature 2021-08-22 12:22:00 36.72 [place] [facility] Systolic blood 2020-12-17 18:35:00 139 mm[Hg] Univer sity of [facility] Diastolic blood 2020-12-17 18:35:00 87 mm[Hg] Unive rsity of [facility] Heart rate 2020-12-17 18:35:00 110 /min [facility] Body temperature 2020-12-17 18:35:00 37.72 [place] [facility] Respiratory rate 2020-12-17 18:35:00 18 /min [facility] Oxygen saturation in 2020-12-17 18:35:00 93 /min University of Arterial blood by [facility] Pulse oximetry Branch Body height 2020-12-12 08:21:00 180.3 cm [facility] [place] [facility] Body weight 2020-12-12 08:21:00 103.42 kg [facility] [place] [facility] BMI 2020-12-12 08:21:00 31.80 kg/m2 [facility] [place] [facility] Systolic blood 2020-12-17 18:35:00 139 mm[Hg] Univer sity of pressure [place] [facility] Diastolic blood 2020-12-17 18:35:00 87 mm[Hg] Unive rsity of pressure [place] [facility] Heart rate 2020-12-17 18:35:00 110 /min [facility] [place] [facility] Body temperature 2020-12-17 18:35:00 37.72 [place] Univ ers[facility] [place] [facility] Respiratory rate 2020-12-17 18:35:00 18 /min Univ ersity [facility] [place] [facility] Oxygen saturation in 2020-12-17 18:35:00 93 /min University of Arterial blood by [facility] Pulse oximetry Branch Body height 2020-12-12 08:21:00 180.3 cm [facility] [place] [facility] Body weight 2020-12-12 08:21:00 103.42 kg [facility] [place] [facility] BMI 2020-12-12 08:21:00 31.80 kg/m2 [facility] [place] [facility] Systolic blood 2020-08-23 19:27:00 140 mm[Hg] Univer sity of pressure [place] [facility] Diastolic blood 2020-08-23 19:27:00 79 mm[Hg] Unive rsity of pressure [place] [facility] Heart rate 2020-08-23 19:27:00 99 /min [facility] [place] [facility] Body temperature 2020-08-23 19:27:00 36 [place] Univ ers[facility] [place] [facility] Respiratory rate 2020-08-23 19:27:00 18 /min Univ ersity [facility] [place] [facility] Oxygen saturation in 2020-08-23 19:27:00 93 /min University of Arterial blood by [facility] Pulse oximetry Branch Body weight 2020-08-21 07:20:00 104.962 kg [facility] [place] [facility] BMI 2020-08-21 07:20:00 32.27 kg/m2 [facility] [place] [facility] Systolic blood 2020-08-23 19:27:00 140 mm[Hg] Univer sity of pressure [facility] Diastolic blood 2020-08-23 19:27:00 79 mm[Hg] [facility] pressure [facility] Heart rate 2020-08-23 19:27:00 99 /min [facility] Body temperature 2020-08-23 19:27:00 36 [place] [facility] Respiratory rate 2020-08-23 19:27:00 18 /min [facility] Oxygen saturation in 2020-08-23 19:27:00 93 /min [facility] blood by [facility] Pulse oximetry [place] Body weight 2020-08-21 07:20:00 104.962 kg [facility] BMI 2020-08-21 07:20:00 32.27 kg/m2 [facility] Procedures Procedure Date / Time Performing Clinician Source Performed POCT GLUCOSE (AUTOMATED) 2020-12-17 15:42:00 Favio Harrisonal G Uni [facility] BASIC METABOLIC PANEL 2020-12-17 10:45:00 Paul Bean [facility] (NA, K, CL, CO2, GLUCOSE, Kaley Medica l Branch BUN, CREATININE, CA) CBC WITH DIFF 2020-12-17 10:45:00 Paul Bean [facility] POCT GLUCOSE (AUTOMATED) 2020-12-17 02:36:00 Harrison [facility] Uni [facility] XR TIBIA FIBULA 2 VW LEFT 2020-12-16 23:38:00 [facility] POCT GLUCOSE (AUTOMATED) 2020-12-16 23:20:00 Harrison, Premal [facility] POCT GLUCOSE (AUTOMATED) 2020-12-16 20:10:00 Harrison, Premal [facility] POCT GLUCOSE (AUTOMATED) 2020-12-16 14:43:00 [facility] BASIC METABOLIC PANEL 2020-12-16 13:51:00 Paul Bean [facility] (NA, K, CL, CO2, GLUCOSE, [place] Med[facility] l Branch BUN, CREATININE, CA) CBC WITH DIFF 2020-12-16 13:51:00 Paul Bean [facility] POCT GLUCOSE (AUTOMATED) 2020-12-16 04:00:00 Harrison, Premal G Uni versity of [facility] POCT GLUCOSE (AUTOMATED) 2020-12-16 00:14:00 Harrison, Premal G Uni versity [facility] CT CHEST PULMONARY 2020-12-15 22:29:38 Paul Bean [facility] ANGIOGRAM [facility] POCT GLUCOSE (AUTOMATED) 2020-12-15 19:26:00 Harrison, [facility]al [facility] POCT GLUCOSE (AUTOMATED) 2020-12-15 15:13:00 Krupa, Premal G Uni [facility] HB ECG ROUTINE & RHYTHM 2020-12-15 14:25:[address] [facility] MAGNESIUM 2020-12-15 12:01:00 Paul Bean [facility] BASIC METABOLIC PANEL 2020-12-15 12:01:00 Paul Bean [facility] (NA, K, CL, CO2, GLUCOSE, [place] [facility] BUN, CREATININE, CA) CBC WITH DIFF 2020-12-15 12:01:00 Paul Bean [facility] POCT GLUCOSE (AUTOMATED) 2020-12-15 03:57:00 Harrison, Premal G Uni versity of [facility] POCT GLUCOSE (AUTOMATED) 2020-12-14 23:31:00 Harrison, Premal G Uni versity of [facility] POCT GLUCOSE (AUTOMATED) 2020-12-14 19:08:00 Harrison, Premal G Uni versity of [facility] POCT GLUCOSE (AUTOMATED) 2020-12-14 15:11:00 Harrison, Premal G Uni versity of [facility] POCT GLUCOSE (AUTOMATED) 2020-12-14 02:36:00 Harrison, Premal G Uni versity of [facility] POCT GLUCOSE (AUTOMATED) 2020-12-13 23:32:00 Harrison, Premal G Uni versity of [facility] POCT GLUCOSE (AUTOMATED) 2020-12-13 18:08:00 Harrison, Premal G Uni versity of [facility] BASIC METABOLIC PANEL 2020-12-13 15:39:00 Paul Bean [facility] (NA, K, CL, CO2, GLUCOSE, [place] [facility] BUN, CREATININE, CA) CBC WITH DIFF 2020-12-13 15:39:00 Paul Bean [facility] POCT GLUCOSE (AUTOMATED) 2020-12-13 14:06:00 Harrison, Premal G Uni versity of [facility] POCT GLUCOSE (AUTOMATED) 2020-12-13 03:07:00 Harrison, Premal G Uni versity of [facility] POCT GLUCOSE (AUTOMATED) 2020-12-12 23:52:00 Harrison, Premal G Uni versity of [facility] POCT GLUCOSE (AUTOMATED) 2020-12-12 20:28:00 Harrison, Premal G Uni versity of [facility] POCT GLUCOSE (AUTOMATED) 2020-12-12 19:14:00 Harrison, Premal G Uni versity of [facility] POCT GLUCOSE (AUTOMATED) 2020-12-12 14:33:00 Harrison, Premal G Uni versity of [facility] MAGNESIUM 2020-12-12 08:58:00 Paul Bean [facility] BASIC METABOLIC PANEL 2020-12-12 08:58:00 Paul Bean [facility] (NA, K, CL, CO2, GLUCOSE, [place] [facility] BUN, CREATININE, CA) CBC WITH DIFF 2020-12-12 08:58:00 Paul Bean [facility] US ABDOMEN LIMITED 2020-12-12 06:32:26 Paul Bean [facility] POCT GLUCOSE (AUTOMATED) 2020-12-12 03:40:00 Harrison, Premal G Uni versity of [facility] POCT GLUCOSE (AUTOMATED) 2020-12-12 00:06:00 Harrison, Premal G Uni versity of [facility] XR HIPS 3 VW LEFT 2020-12-11 20:20:[address] [facility] HB ECG ROUTINE & RHYTHM 2020-12-11 20:04:06 Demetrius [facility] STRIP [facility] VITAMIN B6, PLASMA 2020-12-11 19:17:00 [facility] POCT GLUCOSE (AUTOMATED) 2020-12-11 19:06:00 Vika Harrison [facility] CREATINE KINASE 2020-12-11 18:22:00 Parvez [facility] VITAMIN B12, LEVEL 2020-12-11 18:22:00 Vikas [facility] FOLATE 2020-12-11 18:22:00 [facility] THYROID STIMULATING 2020-12-11 18:22:00 Demetrius [facility] HORMONE [facility] PROCALCITONIN 2020-12-11 18:22:00 Vikas [facility] VITAMIN B1 (THIAMINE), 2020-12-11 18:22:00 [facility] WHOLE BLOOD [facility] CT HEAD WO CONTRAST 2020-12-11 14:07:35 Sweetie Stout [facility] URINALYSIS 2020-12-11 13:44:00 Singer [facility] URINE CULTURE 2020-12-11 13:44:00 Singer [facility] COVID-19 (ID NOW RAPID 2020-12-11 12:31:00 Paco Lacey [facility] TESTING) Medical Branch LAB ONLY COVID 2020-12-11 12:31:00 Singer [facility] INTERPRETATION [facility] XR CHEST 1 VW 2020-12-11 12:07:24 Singer [facility] BLOOD CULTURE SCREEN 2020-12-11 12:02:00 Paco Lacey [facility] MAGNESIUM 2020-12-11 12:02:00 Vikas [facility] FERRITIN SERUM 2020-12-11 12:02:00 Paul Bean [facility] Kaley [facility] COMP. METABOLIC PANEL 2020-12-11 12:02:[address] [facility] ([id number]) [facility] CBC WITH DIFF 2020-12-11 12:02:00 Singer [facility] LACTIC ACID WHOLE BLOOD 2020-12-11 12:02:00 Singer Paco [facility] BLOOD CULTURE SCREEN 2020-12-11 11:42:00 Singer Paco [facility] EMERGENCY SERVICES 2020-12-11 06:01:00 Doctor Unassigned, [facility] AGREEMENTS AND [place] [facility] AUTHORIZATIONS HOSPITAL ADMISSION 2020-12-11 06:01:00 Doctor Unaowen, [facility] Name [facility] HOME HEALTH - OTHER 2020-11-11 06:01:00 Doctor Tabitha [facility] Name [facility] [place] [facility] - OTHER 2020-10-30 06:01:00 Doctor Unaowen [facility] Name [facility] [place] EXTERNAL PROVIDER RECORDS 2020-09-01 06:01:00 Doctor Tabitha, [facility] Name [facility] POCT GLUCOSE (AUTOMATED) 2020-08-23 18:09:00 Kelly [facility] POCT GLUCOSE (AUTOMATED) 2020-08-23 14:14:00 Kelly [place] [facility] MAGNESIUM 2020-08-23 11:18:00 Ramya [facility] BASIC METABOLIC PANEL 2020-08-23 11:18:00 Worton [facility] (NA, K, CL, CO2, GLUCOSE, Medica l Branch BUN, CREATININE, CA) CBC WITH DIFF 2020-08-23 11:18:00 Worton [facility] POCT GLUCOSE (AUTOMATED) 2020-08-23 10:21:00 Kelly [place] [facility] POCT GLUCOSE (AUTOMATED) 2020-08-23 05:55:00 Kelly [place] [facility] POCT GLUCOSE (AUTOMATED) 2020-08-23 03:00:00 Stefania [facility]SE (AUTOMATED) 2020-08-22 23:38:00 Bety Washingtonmarie Elias versity of [facility] POCT GLUCOSE (AUTOMATED) 2020-08-22 19:04:00 Bety [place] [facility] POCT GLUCOSE (AUTOMATED) 2020-08-22 13:49:00 Kelly [place] Jada versity [facility] MAGNESIUM 2020-08-22 10:10:00 [facility] 2020-08-22 10:10:00 Aguila Melchor [facility] ([id number]) (ALB,T.PRO,BILI Medical Branch T,BU/BC,ALT,AST,ALK PHOS) BASIC METABOLIC PANEL 2020-08-22 10:10:00 [facility] (NA, K, CL, CO2, GLUCOSE, Medica l Branch BUN, CREATININE, CA) LIPID PANEL ([id number])(TOTAL 2020-08-22 10:10:00 Worton, [facility] CHOLESTEROL, [facility] [place] TRIGLYCERIDES, HDL) CBC WITH DIFF 2020-08-22 10:10:00 [facility] POCT GLUCOSE (AUTOMATED) 2020-08-22 10:10:00 Bety Washingtonmarie Elias [facility] POCT GLUCOSE (AUTOMATED) 2020-08-22 07:13:00 Kelly [place] Jada versity [facility] POCT GLUCOSE (AUTOMATED) 2020-08-22 02:24:00 Bety Washingtonmarie Elias versity [facility] POCT GLUCOSE (AUTOMATED) 2020-08-21 23:40:00 Kelly [place] Jada versity of [facility] POCT GLUCOSE (AUTOMATED) 2020-08-21 18:10:00 Kelly [place] Jada versity [facility] POCT GLUCOSE (AUTOMATED) 2020-08-21 13:39:00 Kelly [place] Jada versity [facility] ETHANOL 2020-08-21 12:35:00 [facility] ACT[facility] 2020-08-21 12:35:00 Stefania [facility] GALV ONLY - SYPHILIS 2020-08-21 12:35:00 Stefania [facility] IGG/IGM [facility] LACTATE DEHYDROGENASE 2020-08-21 10:09:00 Ramya, [facility] GALV/CLC ONLY - URINE 2020-08-21 10:09:00 Richie [facility] DRUG (IMMUNOASSAY) - 4 ER Medica l Branch PANEL URINALYSIS 2020-08-21 10:09:00 Ramya, [facility] URINE CULTURE 2020-08-21 10:09:00 Ramya, [facility] PROCALCITONIN 2020-08-21 10:09:00 Worton, [facility] POCT GLUCOSE (AUTOMATED) 2020-08-21 09:41:00 Stefania [facility] PROTHROMBIN TIME / INR 2020-08-21 08:32:00 Worton, [facility] ACTIVATED PARTIAL 2020-08-21 08:32:00 Worton, [facility] C-REACTIVE PROTEIN 2020-08-21 08:31:00 Ramya, [facility] HEPATIC FUNCTION PANEL 2020-08-21 08:31:00 Worton, [facility] ([id number]) (ALB,T.PRO,BILI Medical Branch T,BU/BC,ALT,AST,ALK PHOS) BASIC METABOLIC PANEL 2020-08-21 08:31:00 Worton, [facility] (NA, K, CL, CO2, GLUCOSE, [facility] BUN, CREATININE, CA) SEDIMENTATION RATE 2020-08-21 08:31:00 Worton, [facility] CBC WITH DIFF 2020-08-21 08:31:00 Worton, [facility] GLYCOSYLATED HEMOGLOBIN 2020-08-21 08:31:00 Worton, [facility] (A1C) Medical Branch HIV 1/2 AG-AB WITH REFLEX 2020-08-21 08:31:00 Kelly [place] [facility] [place] [facility] COVID-19 (ID NOW RAPID 2020-08-21 08:20:00 Haily [facility]ui [facility] TESTING) Medical Branch LAB ONLY COVID 2020-08-21 08:20:00 Worton [facility] [place] INTERPRETATION [facility] Branch Encounters Start End Encounter Admission Attending Care Care Encounter Source Date/Time Date/Time Type Type Clinicians Facility Department ID 2020-08-21 Inpatient U STEFANIA [facility] [id number] Univers 01:07:00 KELLY brandenana [facility] 2021-08-22 2021-08-22 Emergency [facility] [id number] Univers 06:21:00 08:02:00 SWEETIE cantu [facility] 2021-08-22 2021-08-22 Emergency [facility] [id number] Univers 06:21:00 08:02:00 Sweetie LOTT [id number] i ty of [place]2.[place] [id number] [facility] 084 Branch 2021-08-09 2021-08-09 Outpatient JACQUELYN HAINES [facility] [id number] [facility] 10:27:03 10:27:03 ADRIANA lopez of Medicin e 2020-12-28 2020-12-28 Telephone [facility] 1.2.840.114 [id number] 00:00:00 00:00:00 Calvin H PRIMARY [id number] CARE 4.2.7.2.686 PAVILLION [id number] 220 2020-12-28 2020-12-28 Telephone [facility] 1.2.840.114 [id number] Univers 00:00:00 00:00:00 Calvin H PRIMARY [id number] it y of C[place]2.7.2.[place] [id number] Nh dical 220 Branch 2020-12-19 2020-12-19 Transition Tuan Peters 1.2.840.114 [id number] 00:00:00 00:00:00 of Care Ruchi Braswell [id number] [place] 4.2.7.2.686 [id number] 2020-12-19 2020-12-19 Transition Tuan Peters 1.2.840.114 [id number] Univers 00:00:00 00:00:00 of Care Ruchi Braswell [id number] it y of [place]2.[place] [id number] [facility] 403 Branch 2020-12-11 2020-12-17 [facility] Paco Lacey 1.2.840.1 [id number] 05:11:00 16:00:00 Encounter Vika [place] [id number] [facility] 4.2.7.2.686 [id number] [facility] 2020-12-11 2020-12-17 [facility] Paco Lacey 1.2.840.1 [id number] [facility] 05:11:00 16:00:00 Encounter Vika Harrison [place] [id number] ity [facility] 4.[address] [place] [address] [id number] [facility] 096 Branch 2020-12-11 2020-12-17 Inpatient X [facility] [id number] Univers 05:11:00 16:00:00 pepe [facility] 2020-11-16 2020-11-16 Emergency X [facility] ERT [id number] [facility] 09:31:00 09:31:00 PACO cantu [facility] 2020-11-11 2020-11-11 Orders Doctor CUI 1.2.840.114 [id number] 00:00:00 00:00:00 Only UnassignedMONIQUE [id number] [place] [facility] 4.2.7.2.686 [id number] 009 2020-11-11 2020-11-11 Orders Doctor CUI 1.2.840.114 [id number] [facility] 00:00:00 00:00:00 Only Unassigned, MONIQUE 350.1.13.10 ity of [place] [facility] 4.2.7.2.686 Jeff as [id number] [address] 2020-11-07 2020-11-07 [facility]phone [facility] [id number] 00:00:00 00:00:00 Angi Lott 350.1.13.10 [place] 4.2.7.2.686 Professio [id number] [address] 2020-11-07 2020-11-07 Telephone [facility] [id number] [facility] 00:00:00 00:00:00 Angi Lott 350.1.13.10 ity of [place].2.[place] Profess[place] [id number] Nh dic[address] 2020-10-30 2020-10-30 Orders Doctor BASILIA 1.2.840.114 [id number] 00:00:00 00:00:00 Only Unassigned, MONIQUE 350.1.13.10 [place] [facility] 4.2.7.2.686 [id number] [facility] 2020-10-30 2020-10-30 Orders Doctor BASILIA 1.2.840.114 [id number] [facility] 00:00:00 00:00:00 Only Unassigned, MONIQUE 350.1.13.10 ity of [place] [facility] 4.2.7.2.686 Jeff as [id number] [address] 2020-09-26 2020-09-[address] [facility] 1.2.840.114 [id number] 00:00:00 00:00:00 [facility] [id number] CLINICS 4.2.7.2.686 [id number] [facility] 2020-09-26 2020-09-[address] [facility] 1.2.840.114 [id number] [facility] 00:00:00 00:00:00 [facility] 350.1.13.10 i ty of CLINICS 4[place]7.2.[place] [id number] [address] 2020-09-01 2020-09-01 Orders Doctor BASILIA 1.2.840.114 [id number] 00:00:00 00:00:00 Only Unassigned, MONIQUE 350.1.13.10 [place] [facility] 4.2.7.2.686 [id number] [id number] 2020-09-01 2020-09-01 Orders Doctor BASILIA 1.2.840.114 [id number] Univers 00:00:00 00:00:00 Only Unassigned, MONIQUE 350.1.13.10 ity of [place] [facility] 4.2.7.2.686 Jeff as [id number] [facility] 009 Branch 2020-08-25 2020-08-25 Transition Tuan Peters 1.2.840.114 [id number] 00:00:00 00:00:00 of Care Ruchi Braswell 350.1.13.10 [place] 4.2.7.2.686 [id number] 2020-08-25 2020-08-25 Transition Tuan Peters 1.2.840.114 [id number] Univers 00:00:00 00:00:00 of Care Ruchi Braswell 350.1.13.10 it y of [place] 4[place].7.[place] [id number] [facility] [address] [place] 2020-08-21 2020-08-23 [facility] Ayleen 1.2.840.114 [id number] 01:07:00 18:35:00 Encounter Kelly Monique 350.1.13.10 [facility] 4.2.7.2.686 [id number] [facility] 2020-08-21 2020-08-23 [facility] 1. 2.840.114 [id number] [facility] 01:07:00 18:35:00 Encounter Mukul Gallardo 350.1.13. 10 ity of [facility] 4.2.7.2.686 Jeff as [id number] [address] Results Test Description Test Time Test Comments Results Result Comments Source POCT GLUCOSE (AUTOMATED) 2020-12-17 15:43:35 Test Item Value Reference Range Interpretation Comme nts POCT GLU (test code = 9526749049) 129 mg/dL 70-110 H Lab Interpretation (test code = 90013-7) Abnormal [facility] (NA, K, CL, CO2, GLUCOSE, BUN, CREATININE, CA)2020-12-17 11:45:07 Test Item Value Reference Range Interpretation Comments NA (test code = 137 mmol/L 135-145 7553543704) K (test code = 3.5 mmol/L 3.5-5.0 7261785385) CL (test code = 103 mmol/L 98-108 4236403041) CO2 TOTAL (test code = 26 mmol/L 23-31 8832436965) AGAP (test code = 2-16 2670137163) BUN (test code = 11 mg/dL 7-23 8568775584) GLUCOSE (test code = 175 mg/dL 70-110 H 0149768501) CREATININE (test code = 0.62 mg/dL 0.60-1.25 8071900348) CALCIUM (test code = 9.0 mg/dL 8.6-10.6 3981092998) eGFR Calculation mL/min/1.73m2 (Non-) (test code = 3120127250) eGFR Calculation mL/min/1.73m2 () (test code = 9786267532) JAMES (test code = JAMES) Association of [...] tests). Lab Interpretation Abnormal (test code = 70291-5) [facility] WITH [id number] 11:07:27 Test Item Value Reference Range Interpretation [...] RDW-SD (test code = 45.2 fL 38.5-51.6 98579-8) RDW-CV (test code = 16.9 % 12.1-15.4 H 788-0) PLT (test code = See_Comment H [Automated 777-3) message] The sy stem which generated this result transmitted reference range : 150 - 328 10*3/ ?L. The reference r torito was not used to interpret this result as normal/abnormal . MPV (test code = 8.1 fL 9.8-13.0 L 77005-3) NRBC/100 WBC (test See_Comment [Automat ed code = 0025194394) message] The system which generated this result transmitted reference range : 0.0 - 10.0 /100 WBCs. The refer ence range was not u sed to interpret th is result as normal/abnormal . NRBC x10^3 (test code <0.01 See_Comment [Auto mated = 3665762508) message] The s ystem which generated this result transmitted reference range : 10*3/?L. The reference range was not used to interpret this result as normal/abnormal . GRAN MAT (NEUT) % 72.8 % (test code = 770-8) IMM GRAN % (test code 0.60 % = 2267648303) LYMPH % (test code = 18.4 % 736-9) MONO % (test code = 5.7 % 5905-5) EOS % (test code = 1.8 % 713-8) BASO % (test code = 0.7 % 706-2) GRAN MAT x10^3(ANC) 8.23 10*3/uL 1.99-6.95 H (test code = 7786367632) IMM GRAN x10^3 (test 0.07 10*3/uL 0.00-0.06 H code = 6789406837) LYMPH x10^3 (test code 2.08 10*3/uL 1.09-3.23 = 731-0) MONO x10^3 (test code 0.65 10*3/uL 0.36-1.02 = 742-7) EOS x10^3 (test code = 0.20 10*3/uL 0.06-0.53 711-2) BASO x10^3 (test code 0.08 10*3/uL 0.01-0.09 = 704-7) Lab Interpretation Abnormal (test code = 14753-4) [facility] 06:03:38 Test Item Value Reference Range Interpretation Comments POCT GLU (test code = 1412921407) 75 mg/dL 70-110 Lab Interpretation (test code = Normal 97475-5) [facility], [id number] 00:01:00 Test Item Value Reference Range Interpretation Comments VIT B6 (test code = 13.1 nmol/L 20.0-125.0 L INTERPRE TIVE 35606-1) INFORMATION: Vi tamin B6 (Pyridoxal 5-Phosphate) Pyridoxal 5'-phosphate me asured in a specimen collected follo wing an 8-hour or overnight fast accurately clara keene vitamin B6 nutritional sta tus. Non-fasting spe cimen concentration reflects recent vitamin intake. This test was develo ped and its perform ance characteristics determined by [facility]. I t has not been cleare d or approved by the [place] Food and Drug Administration. This test was perfor med in a CLIA certifie d laboratory and is intended for cl inical purposes.Perfor med By: [employer] [employer] [place] [address] [id number] Director: Namrata Klein MD Lab Interpretation Abnormal (test code = 59107-7) [facility] TIBIA FIBULA 2 VW [id number] 23:57:09 Tricompartmental knee joint osteoarthrosis.XR TIBIA FIBULA [...] No acute fracture or dislocation.IMPRESSIONTricompartmental knee joint osteoarthrosis.[facility] GLUCOSE (AUTOMATED) 2020-12-16 23:27:00 Test Item Value Reference Range Interpretation Comments POCT GLU (test code = 8326050004) 114 mg/dL 70-110 H Lab Interpretation (test code = Abnormal 42457-9) [facility] GLUCOSE (AUTOMATED)2020-12-16 20:12:00 Test Item Value Reference Range Interpretation Comments POCT GLU (test code = 5136840626) 105 mg/dL 70-110 Lab Interpretation (test code = Normal 16507-4) [facility] GLUCOSE (AUTOMATED)2020-12-16 14:44:00 Test Item Value Reference Range Interpretation Comments POCT GLU (test code = 8742529466) 153 mg/dL 70-110 H Lab Interpretation (test code = Abnormal 85077-7) [facility] METABOLIC PANEL (NA, K, CL, CO2, GLUCOSE, BUN, CREATININE, CA)2020-12-16 14:23:00 Test Item Value Reference Range Interpretation Comments NA (test code = 138 mmol/L 135-145 9333249977) K (test code = 3.4 mmol/L 3.5-5.0 L 1304310784) CL (test code = 100 mmol/L 98-108 4363513619) CO2 TOTAL (test code = 31 mmol/L 23-31 5304233354) AGAP (test code = 2-16 2158631976) BUN (test code = 11 mg/dL 7-23 0357558385) GLUCOSE (test code = 162 mg/dL 70-110 H 7803805794) CREATININE (test code = 0.64 mg/dL 0.60-1.25 3814590435) CALCIUM (test code = 8.9 mg/dL 8.6-10.6 7249385406) eGFR Calculation mL/min/1.73m2 (Non-) (test code = 1525526271) eGFR Calculation mL/min/1.73m2 () (test code = 1533211378) JAMES (test code = JAMES) Association of [...] tests). Lab Interpretation Abnormal (test code = 82539-5) [facility] WITH [id number] 14:05:00 Test Item Value Reference Range Interpretation [...] RDW-SD (test code = 45.4 fL 38.5-51.6 04358-3) RDW-CV (test code = 17.0 % 12.1-15.4 H 788-0) PLT (test code = See_Comment H [Automated 777-3) message] The sy stem which generated this result transmitted reference range : 150 - 328 10*3/ ?L. The reference r torito was not used to interpret this result as normal/abnormal . MPV (test code = 8.0 fL 9.8-13.0 L 55057-2) NRBC/100 WBC (test See_Comment [Automat ed code = 1121724268) message] The system which generated this result transmitted reference range : 0.0 - 10.0 /100 WBCs. The refer ence range was not u sed to interpret th is result as normal/abnormal . NRBC x10^3 (test code <0.01 See_Comment [Auto mated = 1487255939) message] The s ystem which generated this result transmitted reference range : 10*3/?L. The reference range was not used to interpret this result as normal/abnormal . GRAN MAT (NEUT) % 70.0 % (test code = 770-8) IMM GRAN % (test code 0.70 % = 8900253432) LYMPH % (test code = 20.5 % 736-9) MONO % (test code = 7.1 % 5905-5) EOS % (test code = 1.0 % 713-8) BASO % (test code = 0.7 % 706-2) GRAN MAT x10^3(ANC) 9.44 10*3/uL 1.99-6.95 H (test code = 8662191915) IMM GRAN x10^3 (test 0.09 10*3/uL 0.00-0.06 H code = 4393168666) LYMPH x10^3 (test code 2.76 10*3/uL 1.09-3.23 = 731-0) MONO x10^3 (test code 0.96 10*3/uL 0.36-1.02 = 742-7) EOS x10^3 (test code = 0.13 10*3/uL 0.06-0.53 711-2) BASO x10^3 (test code 0.10 10*3/uL 0.01-0.09 H = 704-7) Lab Interpretation Abnormal (test code = 71126-8) [facility] HospitalBlood Culture - Peripheral # [id number] 13:01:00 Test Item Value Reference Range Interpretation Comments Blood Culture-Aerobic No organisms No growth Previo us (test code = 64479-4) isolated prelim inary verified result was Culture In Progress on 12/11/2020 at 100 1 CSTPrevious preliminary verified result was No growth a t 24 hours on 12/12/2020 at 070 1 CSTPrevious preliminary verified result was No growth a t 48 hours on 12/13/2020 at 070 1 CSTPrevious preliminary verified result was No growth a t 72 hours on 12/14/2020 at 070 1 [facility] Blood No organisms No growth Previous Culture-Anaerobic isolated preliminar y (test code = 65936-9) verifi ed result was Culture In Progress on 12/11/2020 at 100 1 CSTPrevious preliminary verified result was No growth a t 24 hours on 12/12/2020 at 070 1 CSTPrevious preliminary verified result was No growth a t 48 hours on 12/13/2020 at 070 1 CSTPrevious preliminary verified result was No growth a t 72 hours on 12/14/2020 at 070 1 [facility] Lab Interpretation Normal (test code = 34020-9) [facility] Culture - Peripheral # [id number] 13:01:00 Test Item Value Reference Range Interpretation Comments Blood Culture-Aerobic No organisms No growth Previo us (test code = 66382-5) isolated prelim inary verified result was Culture In Progress on 12/11/2020 at 100 1 CSTPrevious preliminary verified result was No growth a t 24 hours on 12/12/2020 at 070 1 CSTPrevious preliminary verified result was No growth a t 48 hours on 12/13/2020 at 070 1 CSTPrevious preliminary verified result was No growth a t 72 hours on 12/14/2020 at 070 1 [facility] Blood No organisms No growth Previous Culture-Anaerobic isolated preliminar y (test code = 98898-7) verifi ed result was Culture In Progress on 12/11/2020 at 100 1 CSTPrevious preliminary verified result was No growth a t 24 hours on 12/12/2020 at 070 1 CSTPrevious preliminary verified result was No growth a t 48 hours on 12/13/2020 at 070 1 CSTPrevious preliminary verified result was No growth a t 72 hours on 12/14/2020 at 070 1 [facility] Lab Interpretation Normal (test code = 30242-5) [facility] GLUCOSE (AUTOMATED)2020-12-16 04:01:00 Test Item Value Reference Range Interpretation Comments POCT GLU (test code = 0802417273) 156 mg/dL 70-110 H Lab Interpretation (test code = Abnormal 97937-1) [facility]2020-12-16 00:24:00 Test Item Value Reference Range Interpretation Comments POCT GLU (test code = 2033106070) 115 mg/dL 70-110 H Lab Interpretation (test code = Abnormal 56397-9) [facility] CHEST PULMONARY [id number] 23:34:55No pulmonary emboli. No interval change in [...] stableappearance of intra and extrahepatic biliary ductal dilatation.[facility] GLUCOSE (AUTOMATED)2020-12-15 19:28:00 Test Item Value Reference Range Interpretation Comments POCT GLU (test code = 8141462119) 140 mg/dL 70-110 H Lab Interpretation (test code = Abnormal 46806-8) [facility] 15:26:00 Test Item Value Reference Range Interpretation Comments MAGNESIUM (test code = 6047217029) 2.2 mg/dL 1.7-2.4 Lab Interpretation (test code = Normal 36169-4) [facility] GLUCOSE (AUTOMATED)2020-12-15 15:15:00 Test Item Value Reference Range Interpretation Comments POCT GLU (test code = 8561348758) 181 mg/dL 70-110 H Lab Interpretation (test code = Abnormal 93353-7) [facility] METABOLIC PANEL (NA, K, CL, CO2, GLUCOSE, BUN, CREATININE, CA)2020-12-15 13:07:00 Test Item Value Reference Range Interpretation Comments NA (test code = 136 mmol/L 135-145 4391928471) K (test code = 3.6 mmol/L 3.5-5.0 4288508538) CL (test code = 96 mmol/L 98-108 L 8111716867) CO2 TOTAL (test code = 29 mmol/L 23-31 7899390808) AGAP (test code = 2-16 9607710247) BUN (test code = 12 mg/dL 7-23 2343087043) GLUCOSE (test code = 183 mg/dL 70-110 H 0461381367) CREATININE (test code = 0.70 mg/dL 0.60-1.25 6753531011) CALCIUM (test code = 9.2 mg/dL 8.6-10.6 5433801487) eGFR Calculation mL/min/1.73m2 (Non-) (test code = 3375642953) eGFR Calculation mL/min/1.73m2 () (test code = 4092395770) JAMES (test code = JAMES) Association of [...] tests). Lab Interpretation Abnormal (test code = 61099-4) [facility] WITH [id number] 12:32:00 Test Item Value Reference Range Interpretation Comments WBC (test code = See_Comment H [Automated 5090-2) message] The system which generated this result transmit ronan reference range : 4.20 - 10.70 10*3/?L. The reference range was not used to interpret this result as normal/abnormal . RBC (test code = See_Comment H [Automated 729-8) message] The system which generated this result [...] RDW-SD (test code = 44.4 fL 38.5-51.6 50653-9) RDW-CV (test code = 17.7 % 12.1-15.4 H 788-0) PLT (test code = See_Comment H [Automated 777-3) message] The system which generated this result transmit ronan reference range : 150 - 328 10*3/ ?L. The reference range was not u sed to interpret th is result as normal/abnormal . MPV (test code = 8.1 fL 9.8-13.0 L 68705-7) NRBC/100 WBC (test See_Comment [Automat ed code = 4321220296) message] The system which generated this result transmit ronan reference range : 0.0 - 10.0 /100 WBCs. The reference range was not used to interpret this result as normal/abnormal . NRBC x10^3 (test code <0.01 See_Comment [Auto mated = 4904048072) message] The system which generated this result transmit ronan reference range : 10*3/?L. The reference range was not used to interpret this result as normal/abnormal . GRAN MAT (NEUT) % 74.5 % (test code = 770-8) IMM GRAN % (test code 0.70 % = 0902445252) LYMPH % (test code = 17.4 % 736-9) MONO % (test code = 6.8 % 5905-5) EOS % (test code = 0.2 % 713-8) BASO % (test code = 0.4 % 706-2) GRAN MAT x10^3(ANC) 11.99 10*3/uL 1.99-6.95 H (test code = 8318521830) IMM GRAN x10^3 (test 0.11 10*3/uL 0.00-0.06 H code = 6954764605) LYMPH x10^3 (test code 2.80 10*3/uL 1.09-3.23 = 731-0) MONO x10^3 (test code 1.10 10*3/uL 0.36-1.02 H = 742-7) EOS x10^3 (test code = 0.03 10*3/uL 0.06-0.53 L 711-2) BASO x10^3 (test code 0.06 10*3/uL 0.01-0.09 = 704-7) Lab Interpretation Abnormal (test code = 26112-3) [facility] GLUCOSE (AUTOMATED)2020-12-15 04:16:00 Test Item Value Reference Range Interpretation Comments POCT GLU (test code = 7547033957) 200 mg/dL 70-110 H Lab Interpretation (test code = Abnormal 59641-0) [facility] (THIAMINE), WHOLE [id number] 00:30:00 Test Item Value Reference Range Interpretation Comments Vitamin B1, Whole 136 nmol/L 70-180 INTERPRETI VE INFORMATION: Blood (test code = Vitamin B 1, Whole Blood 43818-8) This assay júnior ures the concentration o f thiamine diphosphate (TD P), the primary active form of vitamin B1. Nick roximately 90 percent of v itamin B1 present in whol e blood is TDP. Thiamine a nd thiamine monoph osphate, which comprise the remaining 10 pe rcent, are not measured. T his test was developed a nd its performance characteristics determined by [facility]. I t has not been cleared or approved by the [place] Food and Drug Administration. This test was performed i n a CLIA certified labor atory and is intended for clinical purposes.Perfor med By: [facility] [address] [place], [place] [address]K aboratory Director: Namrata Klein MD [facility] GLUCOSE (AUTOMATED)2020-12-14 23:35:00 Test Item Value Reference Range Interpretation Comments POCT GLU (test code = 3410645528) 151 mg/dL 70-110 H Lab Interpretation (test code = Abnormal 39580-0) [facility] GLUCOSE (AUTOMATED)2020-12-14 19:19:00 Test Item Value Reference Range Interpretation Comments POCT GLU (test code = 4330254795) 193 mg/dL 70-110 H Lab Interpretation (test code = Abnormal 53222-5) [facility] GLUCOSE (AUTOMATED)2020-12-14 15:22:00 Test Item Value Reference Range Interpretation Comments POCT GLU (test code = 0401035373) 221 mg/dL 70-110 H Lab Interpretation (test code = Abnormal 16814-6) [facility] GLUCOSE (AUTOMATED)2020-12-14 02:37:00 Test Item Value Reference Range Interpretation Comments POCT GLU (test code = 8633339790) 210 mg/dL 70-110 H Lab Interpretation (test code = Abnormal 37428-5) [facility] GLUCOSE (AUTOMATED)2020-12-13 23:33:00 Test Item Value Reference Range Interpretation Comments POCT GLU (test code = 3123013405) 182 mg/dL 70-110 H Lab Interpretation (test code = Abnormal 63418-4) [facility] GLUCOSE (AUTOMATED)2020-12-13 18:09:00 Test Item Value Reference Range Interpretation Comments POCT GLU (test code = 4097598162) 150 mg/dL 70-110 H Lab Interpretation (test code = Abnormal 84224-1) [facility] METABOLIC PANEL (NA, K, CL, CO2, GLUCOSE, BUN, CREATININE, CA)2020-12-13 16:27:00 Test Item Value Reference Range Interpretation Comments NA (test code = 136 mmol/L 135-145 1119639180) K (test code = 3.7 mmol/L 3.5-5.0 1937843775) CL (test code = 96 mmol/L 98-108 L 8749096723) CO2 TOTAL (test code = 29 mmol/L 23-31 1209773896) AGAP (test code = 2-16 3401318127) BUN (test code = 6 mg/dL 7-23 L 4527877406) GLUCOSE (test code = 212 mg/dL 70-110 H 3704579194) CREATININE (test code = 0.61 mg/dL 0.60-1.25 3968904480) CALCIUM (test code = 9.5 mg/dL 8.6-10.6 8334856066) eGFR Calculation mL/min/1.73m2 (Non-) (test code = 7796015500) eGFR Calculation mL/min/1.73m2 () (test code = 7383628851) JAMES (test code = JAMES) Association of [...] tests). Lab Interpretation Abnormal (test code = 39202-1) [facility] WITH [id number] 16:10:00 Test Item Value Reference Range Interpretation Comments WBC (test code = See_Comment H [Automated 3190-2) message] The sy stem which generated this result transmitted reference range : 4.20 - 10.70 10*3/?L. The reference range was not used to interpret this result as normal/abnormal . RBC (test code = See_Comment H [Automated 119-8) message] The sy stem which generated this [...] RDW-SD (test code = 43.3 fL 38.5-51.6 94725-2) RDW-CV (test code = 16.2 % 12.1-15.4 H 788-0) PLT (test code = See_Comment H [Automated 777-3) message] The sy stem which generated this result transmitted reference range : 150 - 328 10*3/ ?L. The reference r torito was not used to interpret this result as normal/abnormal . MPV (test code = 8.2 fL 9.8-13.0 L 03741-9) NRBC/100 WBC (test See_Comment [Automat ed code = 7271665763) message] The system which generated this result transmitted reference range : 0.0 - 10.0 /100 WBCs. The refer ence range was not u sed to interpret th is result as normal/abnormal . NRBC x10^3 (test code <0.01 See_Comment [Auto mated = 4583102480) message] The s ystem which generated this result transmitted reference range : 10*3/?L. The reference range was not used to interpret this result as normal/abnormal . GRAN MAT (NEUT) % 86.2 % (test code = 770-8) IMM GRAN % (test code 0.70 % = 0396964708) LYMPH % (test code = 10.2 % 736-9) MONO % (test code = 2.5 % 5905-5) EOS % (test code = 0.1 % 713-8) BASO % (test code = 0.3 % 706-2) GRAN MAT x10^3(ANC) 9.61 10*3/uL 1.99-6.95 H (test code = 5567256378) IMM GRAN x10^3 (test 0.08 10*3/uL 0.00-0.06 H code = 9791731466) LYMPH x10^3 (test code 1.14 10*3/uL 1.09-3.23 = 731-0) MONO x10^3 (test code 0.28 10*3/uL 0.36-1.02 L = 742-7) EOS x10^3 (test code = <0.03 0.06-0.53 L 711-2) BASO x10^3 (test code 0.03 10*3/uL 0.01-0.09 = 704-7) Lab Interpretation Abnormal (test code = 99203-9) [facility]2020-12-13 14:16:00 Test Item Value Reference Range Interpretation Comments POCT GLU (test code = 4435753187) 236 mg/dL 70-110 H Lab Interpretation (test code = Abnormal 27954-8) [facility] COVID [id number] 04:58:00COVID DMT InterpretationInterpretation/Recommendations: Molecular NAAT Tests for [...] medical record. [facility]COVID FswiwuxOUSE-XbC-5 Rapid ID NOW (no units) ? ? Date ? Value ? 12/11/2020 ? Not Detected ? ? ? 11/16/2020 ? Not Detected ? ? ? 08/21/2020 ? Not Detected ? [facility] 2020-12-13 03:11:00 Test Item Value Reference Range Interpretation Comments POCT GLU (test code = 4424686157) 171 mg/dL 70-110 H Lab Interpretation (test code = Abnormal 76309-5) [facility] GLUCOSE (AUTOMATED)2020-12-13 00:00:00 Test Item Value Reference Range Interpretation Comments POCT GLU (test code = 2903445158) 118 mg/dL 70-110 H Lab Interpretation (test code = Abnormal 85163-1) [facility] GLUCOSE (AUTOMATED)2020-12-12 20:29:00 Test Item Value Reference Range Interpretation Comments POCT GLU (test code = 3320352729) 173 mg/dL 70-110 H Lab Interpretation (test code = Abnormal 61754-4) [facility] Hospital[facility]EN [id number] 19:56:17 1. ?Hepatic steatosis. However, limited evaluation [...] portal veinwasevaluated with color Doppler imaging. Manager Fiber images were obtainedfor the record. COMPARISON: Ultrasound [...] where visualized. SPLEEN:No images were obtained. [facility], Radiant Results Inft User - 12/12/2020 1:57 PM CSTEXAM: US ABDOMEN LIMITEDHISTORY: 70 years-old male with RUQ ultrasound to assess for common bileduct dilation .TECHNIQUE: Limited abdominal ultrasound focused on the liver, biliarysystem, pancreas, and spleen was performed. The main portal vein wasevaluated with color Doppler imaging. Manager Fiber images wereobtainedfor the record.COMPARISON: Ultrasound abdomen 11/17/2028. [...] reviewed this study and agree with the abovereport.[facility]2020-12-12 19:24:00 Test Item Value Reference Range Interpretation Comments POCT GLU (test code = 0142345771) 230 mg/dL 70-110 H Lab Interpretation (test code = Abnormal 84762-6) [facility] CHEST 1 [id number] 15:16:46 Low lung volumes with mild perihilar [...] reviewed this study and agree with theabove report.[facility]2020-12-12 14:34:00 Test Item Value Reference Range Interpretation Comments POCT GLU (test code = 8845225966) 225 mg/dL 70-110 H Lab Interpretation (test code = Abnormal 56806-8) [facility] HospitalURINE [id number] 13:28:00 Test Item Value Reference Range Interpretation Comments URINE CULTURE (test < 10,000 CFU/mL mixed code = 630-4) aerobic organisms - suggests endogenous microbial contamination [facility] (NA, K, CL, CO2, GLUCOSE, BUN, CREATININE, CA)2020-12-12 10:05:00 Test Item Value Reference Range Interpretation Comments NA (test code = 136 mmol/L 135-145 0943218161) K (test code = 3.5 mmol/L 3.5-5.0 0900762198) CL (test code = 100 mmol/L 98-108 2686165600) CO2 TOTAL (test code = 31 mmol/L 23-31 1364270841) AGAP (test code = 2-16 2670009876) BUN (test code = 7 mg/dL 7-23 8500158322) GLUCOSE (test code = 259 mg/dL 70-110 H 3456578759) CREATININE (test code = 0.63 mg/dL 0.60-1.25 3728028845) CALCIUM (test code = 8.5 mg/dL 8.6-10.6 L 0621934965) eGFR Calculation mL/min/1.73m2 (Non-) (test code = 2542607318) eGFR Calculation mL/min/1.73m2 () (test code = 9812702933) JAMES (test code = JAMES) Association of [...] tests). Lab Interpretation Abnormal (test code = 92556-1) [facility] HospitalMagnesium [id number] 10:05:00 Test Item Value Reference Range Interpretation Comments MAGNESIUM (test code = 9950495835) 1.9 mg/dL 1.7-2.4 Lab Interpretation (test code = Normal 20478-5) [facility] with [id number] 09:48:00 Test Item Value Reference Range Interpretation Comments WBC (test code = See_Comment [Automated 3819-2) message] The sy stem which generated this result transmitted reference range : 4.20 - 10.70 10*3/?L. The reference range was not used to interpret this result as normal/abnormal . RBC (test code = See_Comment [Automated 332-8) message] The sy stem which generated this [...] RDW-SD (test code = 46.0 fL 38.5-51.6 30042-0) RDW-CV (test code = 16.1 % 12.1-15.4 H 788-0) PLT (test code = See_Comment H [Automated 777-3) message] The sy stem which generated this result transmitted reference range : 150 - 328 10*3/ ?L. The reference r torito was not used to interpret this result as normal/abnormal . MPV (test code = 8.6 fL 9.8-13.0 L 85569-2) NRBC/100 WBC (test See_Comment [Automat ed code = 5129662254) message] The system which generated this result transmitted reference range : 0.0 - 10.0 /100 WBCs. The refer ence range was not u sed to interpret th is result as normal/abnormal . NRBC x10^3 (test code <0.01 See_Comment [Auto mated = 8973618237) message] The s ystem which generated this result transmitted reference range : 10*3/?L. The reference range was not used to interpret this result as normal/abnormal . GRAN MAT (NEUT) % 70.2 % (test code = 770-8) IMM GRAN % (test code 0.30 % = 7784151216) LYMPH % (test code = 18.8 % 736-9) MONO % (test code = 5.0 % 5905-5) EOS % (test code = 5.2 % 713-8) BASO % (test code = 0.5 % 706-2) GRAN MAT x10^3(ANC) 6.05 10*3/uL 1.99-6.95 (test code = 4635862818) IMM GRAN x10^3 (test 0.03 10*3/uL 0.00-0.06 code = 4620909574) LYMPH x10^3 (test code 1.62 10*3/uL 1.09-3.23 = 731-0) MONO x10^3 (test code 0.43 10*3/uL 0.36-1.02 = 742-7) EOS x10^3 (test code = 0.45 10*3/uL 0.06-0.53 711-2) BASO x10^3 (test code 0.04 10*3/uL 0.01-0.09 = 704-7) Lab Interpretation Abnormal (test code = 85533-2) [facility]2020-12-12 03:42:00 Test Item Value Reference Range Interpretation Comments POCT GLU (test code = 196 mg/dL 70-110 H Notifi ed Provider [id number]) Lab Interpretation (test Abnormal code = 82160-8) [facility] HospitalFOLATE2021-[facility]-02 02:24:00 Test Item Value Reference Range Interpretation Comments FOLATE SER (test code = 1252630131) 5.8 ng/mL 3.0-20.0 Lab Interpretation (test code = Normal 93855-6) [facility] HospitalVITAMIN B12, [id number] 00:55:00 Test Item Value Reference Range Interpretation Comments VIT B12 (test code = 844 pg/mL 240-930 2617760634) JAMES (test code = JAMES) Biotin has been reported to cause a positive bias, interpret results relative to patient's use of biotin. Lab Interpretation (test Normal code = 52602-2) [facility] GLUCOSE (AUTOMATED)2020-12-12 00:14:00 Test Item Value Reference Range Interpretation Comments POCT GLU (test code = 3505371642) 164 mg/dL 70-110 H Lab Interpretation (test code = Abnormal 56108-2) [facility] HospitalCREATINE [id number] 23:42:00 Test Item Value Reference Range Interpretation Comments CK (test code = 9000446030) <20 33-194 L Lab Interpretation (test code = Abnormal 28650-5) [facility] HospitalTHYROID STIMULATING [id number] 23:17:00 Test Item Value Reference Range Interpretation Comments TSH (test code = See_Comment Biotin has been 6008722959) reported to cau se a negative bias, interpret resul ts relative to johnny bills's use of biotin. [Automated mess age] The system [employer] generated this result transmitted ref erence range: 0.45 - 4 .70 mIU/L. The refe rence range was not u sed to interpret this result as normal/abnor mal. Lab Interpretation (test Normal code = 97906-9) [facility] VW [id number] 21:41:53No appreciable fracture lines. RL: 6200 ICAL [...] No osseous erosions.IMPRESSIONNo appreciable fracture lines.RL: 6200 [facility]IN[facility] 20:00:00 Test Item Value Reference Range Interpretation Comments Procalcitonin (test 0.13 ng/mL <0.07 H code = 6793516056) JAMES (test code = JAMES) INTERPRETATION OF [...] biotics/default.asp Lab Interpretation Abnormal (test code = 84367-1) [facility]2020-12-11 19:07:00 Test Item Value Reference Range Interpretation Comments POCT GLU (test code = 1411736423) 274 mg/dL 70-110 H Lab Interpretation (test code = Abnormal 16581-8) [facility]2021-[facility] 18:31:00 Test Item Value Reference Range Interpretation Comments MAGNESIUM (test code = 1995788110) 1.9 mg/dL 1.7-2.4 Lab Interpretation (test code = Normal 25863-8) [facility] HospitalFERRITIN [id number] 18:31:00 Test Item Value Reference Range Interpretation Comments FERRITIN (test code = 178.0 ng/mL 18.0-464.0 8292722187) JAMES (test code = JAMES) Biotin has been reported to cause a negative bias, interpret results relative to patient's use of biotin. Lab Interpretation (test Normal code = 53598-0) [facility] HEAD WO [id number] 14:36:47 No acute intracranial abnormality. Dilated ventricles [...] reviewed this study and agree with the abovereport.[facility]IS[facility] 14:28:00 Test Item Value Reference Range Interpretation Comments APPEARANCE (test code = Clear Clear 3819978327) COLOR (test code = Yellow Yellow 0013400516) PH (test code = 4.8-8.0 5435091215) SP GRAVITY (test code = 1.003-1.030 8325387015) GLU U QUAL (test code = 500 mg/dL Normal A 0162753542) BLOOD (test code = Negative Negative 8346948149) KETONES (test code = 5 mg/dL Negative A 5042744921) PROTEIN (test code = Negative Negative 2887-8) UROBILIN (test code = Normal Normal 7878896584) BILIRUBIN (test code = Negative Negative 8949179177) NITRITE (test code = Negative Negative 6189443233) LEUK RYAN (test code = Negative Negative 7376818521) RBC/HPF (test code = See_Comment [Autom ated message] 2958016973) The system [employer] generated this result transmit ronan reference range : 0 - 3 HPF. The refe rence range was not u sed to interpret th is result as normal/abnormal . WBC/HPF (test code = See_Comment [Autom ated message] 4307656040) The system [employer] generated this result transmit ronan reference range : 0 - 5 HPF. The refe rence range was not u sed to interpret th is result as normal/abnormal . BACTERIA (test code = Negative Negative 7687051842) MUCOUS (test code = Slight Negative LPF A 5217384331) SQ EPITH (test code = HPF 9082227927) Lab Interpretation (test Abnormal code = 39307-0) [facility] (ID NOW RAPID TESTING)2020-12-11 13:10:00 Test Item Value Reference Range Interpretation Comments SARS-CoV-2 Rapid ID NOW Not Detected Not Detected (test code = 00693-7) JAMES (test code = JAMES) ID NOW COVID-19 Assay is an isothermal nucleic acid amplification test intended for the qualitative detection of nucleic acid from SARS-CoV-2 viral RNA in nasopharyngeal ([employer]) specimens. It is used under Emergency Use [...] indicated. Lab Interpretation Normal (test code = 09243-9) [facility]. METABOLIC PANEL (54154)2020-12-11 12:29:00 Test Item Value Reference Range Interpretation Comments NA (test code = 136 mmol/L 135-145 3441253837) K (test code = 3.5 mmol/L 3.5-5.0 0819225013) CL (test code = 95 mmol/L 98-108 L 5824654758) CO2 TOTAL (test code = 35 mmol/L 23-31 H 7067844331) AGAP (test code = 2-16 5921040038) BUN (test code = 9 mg/dL 7-23 0505369126) GLUCOSE (test code = 329 mg/dL 70-110 H 5079284295) CREATININE (test code = 0.72 mg/dL 0.60-1.25 7917242908) TOTAL BILI (test code = 0.6 mg/dL 0.1-1.2 2504122097) CALCIUM (test code = 9.0 mg/dL 8.6-10.6 5013931406) T PROTEIN (test code = 6.8 g/dL 6.3-8.2 2988466988) ALBUMIN (test code = 3.8 g/dL 3.5-5.0 1408928591) ALK PHOS (test code = 288 U/L 34-122 H 2859595317) ALTv (test code = 46 U/L 5-50 1742-6) AST(SGOT) (test code = 38 U/L 13-40 4883123412) eGFR Calculation mL/min/1.73m2 (Non-) (test code = 4866976563) eGFR Calculation mL/min/1.73m2 () (test code = 7512113205) JAMES (test code = JAMES) Association of [...] tests). Lab Interpretation Abnormal (test code = 51584-2) [facility] HospitalLactic Acid Whole [id number] 12:23:00 Test Item Value Reference Range Interpretation Comments LACTIC ACID (test code = 2.09 mmol/L 0.50-2.20 0000304287) Lab Interpretation (test code = Normal 19940-5) [facility] WITH [id number] 12:17:00 Test Item Value Reference Range Interpretation Comments WBC (test code = See_Comment H [Automated 8890-2) message] The sy stem which generated this result transmitted reference range : 4.20 - 10.70 10*3/?L. The reference range was not used to interpret this result as normal/abnormal . RBC (test code = See_Comment [Automated 859-8) message] The sy stem which [...] RDW-SD (test code = 44.9 fL 38.5-51.6 22136-3) RDW-CV (test code = 15.9 % 12.1-15.4 H 788-0) PLT (test code = See_Comment H [Automated 777-3) message] The sy stem which generated this result transmitted reference range : 150 - 328 10*3/ ?L. The reference r torito was not used to interpret this result as normal/abnormal . MPV (test code = 8.3 fL 9.8-13.0 L 10472-6) NRBC/100 WBC (test See_Comment [Automat ed code = 3692110499) message] The system which generated this result transmitted reference range : 0.0 - 10.0 /100 WBCs. The refer ence range was not u sed to interpret th is result as normal/abnormal . NRBC x10^3 (test code <0.01 See_Comment [Auto mated = 3371005889) message] The s ystem which generated this result transmitted reference range : 10*3/?L. The reference range was not used to interpret this result as normal/abnormal . GRAN MAT (NEUT) % 77.9 % (test code = 770-8) IMM GRAN % (test code 0.50 % = 7245882265) LYMPH % (test code = 12.2 % 736-9) MONO % (test code = 5.2 % 5905-5) EOS % (test code = 3.7 % 713-8) BASO % (test code = 0.5 % 706-2) GRAN MAT x10^3(ANC) 9.57 10*3/uL 1.99-6.95 H (test code = 3832120629) IMM GRAN x10^3 (test 0.06 10*3/uL 0.00-0.06 code = 1596139501) LYMPH x10^3 (test code 1.50 10*3/uL 1.09-3.23 = 731-0) MONO x10^3 (test code 0.64 10*3/uL 0.36-1.02 = 742-7) EOS x10^3 (test code = 0.46 10*3/uL 0.06-0.53 711-2) BASO x10^3 (test code 0.06 10*3/uL 0.01-0.09 = 704-7) Lab Interpretation Abnormal (test code = 47904-6) [facility] ONLY COVID [id number] 18:43:00COVID DMT InterpretationInterpretation/Recommendations: Molecular NAAT Test Results [...] a nasopharyngeal sample, there is approximately a wdm-rn-wsqxb chance that the patient was infected and [...] aggregate data pooled from the [facility] medical recordincluding both current and prior COVID-19 related testing results for the following tests offered atour institution:A. Tests for the Identification of SARS-CoV-2 RNA:SARS-CoV-2 PCR assays including Berlin Aptima, Berlin Fusion, Barrett RealTime, and SpoonRocket Xpert Xpress. SARS-CoV-2 Rapid ID NOW by the ID NOW assay. ? B. Tests for the Identification of SARS-CoV-2 Antibodies: Chemiluminescent immunoassays including Access SARS-CoV-2 IgM (DXI 600), VITROS Jxtk-NMEY-MqP-2 IgG (Vitros 5600 and Vitros 3600), and Barrett SARS-CoV-2 IgG (MANAGER ACCESS I System). These interpretation comments assume that only the above testing was utilized and that the approved acceptable specimen type(s) were used for a given test. These interpretations are autopopulated into [employer] based on computerized algorithms matching an [...] of [facility]'s Rapid ID NOW testing platform is [...] pathogen panel may be beneficialin this setting. [facility] LABORATORY SERVICESCOVID QaryvfiOJJE-PtT-5 Rapid ID NOW (no units) ? ? Date ? Value ? 08/21/2020 ? Not Detected ? [facility]2020-08-23 18:25:00 Test Item Value Reference Range Interpretation Comments POCT GLU (test code = 8060374325) 297 mg/dL 70-110 H Lab Interpretation (test code = Abnormal 51600-1) [facility] GLUCOSE (AUTOMATED)2020-08-23 14:25:00 Test Item Value Reference Range Interpretation Comments POCT GLU (test code = 4975943050) 181 mg/dL 70-110 H Lab Interpretation (test code = Abnormal 92059-4) [facility] Metabolic Panel (NA, K, CL, CO2, GLUCOSE, BUN, CREATININE, CA)2020-08-23 11:45:00 Test Item Value Reference Range Interpretation Comments NA (test code = 132 mmol/L 135-145 L 3782036482) K (test code = 4.0 mmol/L 3.5-5 2320259762) CL (test code = 96 mmol/L 98-108 L 6438747134) CO2 TOTAL (test code = 33 mmol/L 23-31 H 4123353164) AGAP (test code = 2-16 1107656327) BUN (test code = 9 mg/dL 7-23 8753219263) GLUCOSE (test code = 176 mg/dL 70-110 H 9271057610) CREATININE (test code = 0.66 mg/dL 0.6-1.25 1221908921) CALCIUM (test code = 8.5 mg/dL 8.6-10.6 L 4642532113) eGFR Calculation mL/min/1.73m2 (Non-) (test code = 9913077341) eGFR Calculation mL/min/1.73m2 () (test code = 1463843547) JAMES (test code = JAMES) Association of [...] tests). Lab Interpretation Abnormal (test code = 40894-2) [facility] HospitalMagnesium [id number] 11:45:00 Test Item Value Reference Range Interpretation Comments MAGNESIUM (test code = 1893941759) 2.0 mg/dL 1.7-2.4 Lab Interpretation (test code = Normal 75658-3) [facility] with Nicqhxsavzrx5886-73-07 11:38:00 Test Item Value Reference Range Interpretation [...] RDW-SD (test code = 41.8 fL 38.5-51.6 64561-9) RDW-CV (test code = 14.3 % 12.1-15.4 788-0) PLT (test code = See_Comment H [Automated 777-3) message] The sy stem which generated this result transmitted reference range : 150 - 328 10*3/ ?L. The reference r torito was not used to interpret this result as normal/abnormal . MPV (test code = 8.0 fL 9.8-13 L 12108-0) NRBC/100 WBC (test See_Comment [Automat ed code = 1454693667) message] The system which generated this result transmitted reference range : 0.0 - 10.0 /100 WBCs. The refer ence range was not u sed to interpret th is result as normal/abnormal . NRBC x10^3 (test code <0.01 See_Comment [Auto mated = 7800176406) message] The s ystem which generated this result transmitted reference range : 10*3/?L. The reference range was not used to interpret this result as normal/abnormal . GRAN MAT (NEUT) % 61.5 % (test code = 770-8) IMM GRAN % (test code 2.00 % = 4767482716) LYMPH % (test code = 25.5 % 736-9) MONO % (test code = 6.3 % 5905-5) EOS % (test code = 3.7 % 713-8) BASO % (test code = 1.0 % 706-2) GRAN MAT x10^3(ANC) 5.29 10*3/uL 1.99-6.95 (test code = 6880591042) IMM GRAN x10^3 (test 0.17 10*3/uL 0-0.06 H code = 4203623865) LYMPH x10^3 (test code 2.19 10*3/uL 1.09-3.23 = 731-0) MONO x10^3 (test code 0.54 10*3/uL 0.36-1.02 = 742-7) EOS x10^3 (test code = 0.32 10*3/uL 0.06-0.53 711-2) BASO x10^3 (test code 0.09 10*3/uL 0.01-0.09 = 704-7) Lab Interpretation Abnormal (test code = 08058-7) [facility] GLUCOSE (AUTOMATED)2020-08-23 10:22:00 Test Item Value Reference Range Interpretation Comments POCT GLU (test code = 9330098154) 164 mg/dL 70-110 H Lab Interpretation (test code = Abnormal 79257-6) [facility] GLUCOSE (AUTOMATED)2020-08-23 05:56:00 Test Item Value Reference Range Interpretation Comments POCT GLU (test code = 8365629512) 242 mg/dL 70-110 H Lab Interpretation (test code = Abnormal 76149-2) [facility] GLUCOSE (AUTOMATED)2020-08-23 03:02:00 Test Item Value Reference Range Interpretation Comments POCT GLU (test code = 1595056824) 210 mg/dL 70-110 H Lab Interpretation (test code = Abnormal 25840-6) [facility] GLUCOSE (AUTOMATED)2020-08-22 23:40:00 Test Item Value Reference Range Interpretation Comments POCT GLU (test code = 9869915071) 267 mg/dL 70-110 H Lab Interpretation (test code = Abnormal 46517-2) [facility] GLUCOSE (AUTOMATED)2020-08-22 19:08:00 Test Item Value Reference Range Interpretation Comments POCT GLU (test code = 8626453798) 191 mg/dL 70-110 H Lab Interpretation (test code = Abnormal 59482-6) [facility] GLUCOSE (AUTOMATED)2020-08-22 13:50:00 Test Item Value Reference Range Interpretation Comments POCT GLU (test code = 4392952931) 174 mg/dL 70-110 H Lab Interpretation (test code = Abnormal 38996-8) [facility] HospitalURINE [id number] 12:59:00 Test Item Value Reference Range Interpretation Comments URINE CULTURE (test No aerobic growth (< code = 630-4) 1000 CFU/mL) [facility]CBC with Pgcqynkshuba0271-87-84 11:28:00 Test Item Value Reference Range Interpretation Comments WBC (test code = See_Comment [Automated 6690-2) message] The sy stem which generated this result transmitted reference range : 4.20 - 10.70 10*3/?L. The reference range was not used to interpret this result as normal/abnormal . RBC (test code = See_Comment L [Automated 599-8) message] The sy stem which [...] RDW-SD (test code = 42.5 fL 38.5-51.6 84123-4) RDW-CV (test code = 14.5 % 12.1-15.4 788-0) PLT (test code = See_Comment H [Automated 777-3) message] The sy stem which generated this result transmitted reference range : 150 - 328 10*3/ ?L. The reference r torito was not used to interpret this result as normal/abnormal . MPV (test code = 8.0 fL 9.8-13 L 17082-2) NRBC/100 WBC (test See_Comment [Automat ed code = 1270334932) message] The system which generated this result transmitted reference range : 0.0 - 10.0 /100 WBCs. The refer ence range was not u sed to interpret th is result as normal/abnormal . NRBC x10^3 (test code <0.01 See_Comment [Auto mated = 4400148267) message] The s ystem which generated this result transmitted reference range : 10*3/?L. The reference range was not used to interpret this result as normal/abnormal . GRAN MAT (NEUT) % 69.1 % (test code = 770-8) IMM GRAN % (test code 2.20 % = 1101976995) LYMPH % (test code = 20.9 % 736-9) MONO % (test code = 5.8 % 5905-5) EOS % (test code = 1.0 % 713-8) BASO % (test code = 1.0 % 706-2) GRAN MAT x10^3(ANC) 6.51 10*3/uL 1.99-6.95 (test code = 8330028538) IMM GRAN x10^3 (test 0.21 10*3/uL 0-0.06 H code = 9181022883) LYMPH x10^3 (test code 1.97 10*3/uL 1.09-3.23 = 731-0) MONO x10^3 (test code 0.55 10*3/uL 0.36-1.02 = 742-7) EOS x10^3 (test code = 0.09 10*3/uL 0.06-0.53 711-2) BASO x10^3 (test code 0.09 10*3/uL 0.01-0.09 = 704-7) BASO STIPPLING (test Present A code = 703-9) BANDS (test code = Increased A 1590061513) TOXIC CHANGES (test Present A code = 803-7) Lab Interpretation Abnormal (test code = 97595-4) [facility] Metabolic Panel (NA, K, CL, CO2, GLUCOSE, BUN, CREATININE, CA)2020-08-22 11:12:00 Test Item Value Reference Range Interpretation Comments NA (test code = 135 mmol/L 135-145 3382728274) K (test code = 3.6 mmol/L 3.5-5 9297026462) CL (test code = 99 mmol/L 98-108 2831448139) CO2 TOTAL (test code = 31 mmol/L 23-31 7752608777) AGAP (test code = 2-16 7947942582) BUN (test code = 9 mg/dL 7-23 8386399269) GLUCOSE (test code = 198 mg/dL 70-110 H 6194644645) CREATININE (test code = 0.72 mg/dL 0.6-1.25 1139093620) CALCIUM (test code = 8.3 mg/dL 8.6-10.6 L 5866600701) eGFR Calculation mL/min/1.73m2 (Non-) (test code = 2835989432) eGFR Calculation mL/min/1.73m2 () (test code = 2366015557) JAMES (test code = JAMES) Association of [...] tests). Lab Interpretation Abnormal (test code = 84468-0) [facility] HospitalMagnesium Jzlsd2398-30-93 11:12:00 Test Item Value Reference Range Interpretation Comments MAGNESIUM (test code = 8156168682) 2.0 mg/dL 1.7-2.4 Lab Interpretation (test code = Normal 17933-0) [facility] HospitalLipid Panel (Total Cholesterol, Triglycerides, HDL) - Acwwjye6840-95-97 11:12:00 Test Item Value Reference Range Interpretation Comments CHOL (test code = 155 mg/dL 120-200 5835129357) HDL (test code = 42 mg/dL >40 7070923184) HDLC RATIO (test code = See_Comment [Au tomated message] 2958679570) The system [employer] generated this result transmit ronan reference range : <=5.0. The refe rence range was not u sed to interpret th is result as normal/abnormal . TRIG (test code = 186 mg/dL 30-170 H 3778634755) LDL CHOL (test code = 76 mg/dL See_Comment [Auto mated message] 31762-3) The system [employer] generated this result transmit ronan reference range : <=160. The refe rence range was not u sed to interpret th is result as normal/abnormal . VLDL (test code = 37 mg/dL 5-60 6445586560) Lab Interpretation (test Abnormal code = 49374-8) [facility] HospitalHEPATIC FUNCTION PANEL (57209) (ALB,T.PRO,BILI T,BU/BC,ALT,AST,ALK PHOS)2020-08-22 11:12:00 Test Item Value Reference Range Interpretation Comments TOTAL BILI (test code = 2376480270) 0.6 mg/dL 0.1-1.1 BILI UNCON (test code = 6038889260) 0.2 mg/dL 0.1-1.1 BILI CONJ (test code = 7908923435) 0.0 mg/dL 0-0.3 T PROTEIN (test code = 4948973156) 6.0 g/dL 6.3-8.2 L ALBUMIN (test code = 8429328668) 2.8 g/dL 3.5-5 L ALK PHOS (test code = 2897570477) 222 U/L 34-122 H ALTv (test code = 1742-6) 27 U/L 5-50 AST(SGOT) (test code = 2934682289) 30 U/L 13-40 Lab Interpretation (test code = Abnormal 58247-0) [facility] GLUCOSE (AUTOMATED)2020-08-22 10:11:00 Test Item Value Reference Range Interpretation Comments POCT GLU (test code = 1518168539) 196 mg/dL 70-110 H Lab Interpretation (test code = Abnormal 64556-2) [facility] GLUCOSE (AUTOMATED)2020-08-22 07:15:00 Test Item Value Reference Range Interpretation Comments POCT GLU (test code = 9004906101) 183 mg/dL 70-110 H Lab Interpretation (test code = Abnormal 17544-6) [facility] GLUCOSE (AUTOMATED)2020-08-22 02:30:00 Test Item Value Reference Range Interpretation Comments POCT GLU (test code = 3049715029) 295 mg/dL 70-110 H Lab Interpretation (test code = Abnormal 02678-6) [facility] GLUCOSE (AUTOMATED)2020-08-21 23:46:00 Test Item Value Reference Range Interpretation Comments POCT GLU (test code = 3369364295) 258 mg/dL 70-110 H Lab Interpretation (test code = Abnormal 96477-0) [facility] HospitalC-REACTIVE [id number] 18:50:00 Test Item Value Reference Range Interpretation Comments CRP (test code = 7262615846) 15.5 mg/dL <0.8 H Lab Interpretation (test code = Abnormal 02805-3) [facility]2020-08-21 18:21:00 Test Item Value Reference Range Interpretation Comments POCT GLU (test code = 4872102190) 297 mg/dL 70-110 H Lab Interpretation (test code = Abnormal 43465-1) [facility] HospitalETHANOL2020-11-09 16:24:00 Test Item Value Reference Range Interpretation Comments ALCOHOL (test code = <10 mg/dL 1027038509) JAMES (test code = Toxic Greater than or JAMES) equal to 80 mg/dL. NOTE: Whole blood values are approximately 10% to 15% lower than serum and plasma. [facility] HospitalGAL/CLC ONLY - URINE DRUG (IMMUNOASSAY) - 4 ER [id number] 15:36:00 Test Item Value Reference Range Interpretation Comments AMPHET (test code = Negative Negative 7963776365) Cocaine Metabolite (test Negative Negative code = 2475803956) OPIATES (test code = Presumptive Positive Negative A 2607989276) THC (test code = Negative Negative 5607486847) JAMES (test code = JAMES) Urine Drug Cutoff Ranges Amphetamine: ? 1,000 ng/mLCocaine: ? 150 ng/mLOpiates: ? 300 ng/mLCannabinoids: ?50 ng/mL The results are to be used only for medical (i.e., treatment) purposes. Unconfirmed screening results must not be used for non-medical purposes (e.g., employment testing, legal testing). Lab Interpretation (test Abnormal code = 91178-2) [facility] ONLY - SYPHILIS IGG/[id number] 15:04:00 Test Item Value Reference Range Interpretation Comments Syphilis IgG/IgM (test Non-reactive Non-reactive code = 13470-8) JAMES (test code = JAMES) Non-reactive - No serologic evidence of T. pallidum infection. Cannot exclude incubating or early syphilis. Submit a second specimen in 2-4 weeks if syphilis is clinically suspected. Equivocal - Further testing to follow. Reactive - Further testing to follow. Lab Interpretation (test Normal code = 22125-0) [facility] HospitalUrinalysis2020-11-09 14:52:00 Test Item Value Reference Range Interpretation Comments APPEARANCE (test code = Clear Clear 0686604892) COLOR (test code = Yellow Yellow 5241792031) PH (test code = 4.8-8.0 6093496036) SP GRAVITY (test code = 1.003-1.030 3694440295) GLU U QUAL (test code = 500 mg/dL Normal A 4601853691) BLOOD (test code = Negative Negative 1973876985) KETONES (test code = 20 mg/dL Negative A 2063696822) PROTEIN (test code = Negative Negative 2887-8) UROBILIN (test code = Normal Normal 5490785761) BILIRUBIN (test code = Negative Negative 0078012050) NITRITE (test code = Negative Negative 3381981874) LEUK RYAN (test code = Negative Negative 3606595981) RBC/HPF (test code = <1 See_Comment [Autom ated message] 4919959183) The system [employer] generated this result transmit ronan reference range : 0 - 3 HPF. The refe rence range was not u sed to interpret th is result as normal/abnormal . WBC/HPF (test code = See_Comment [Autom ated message] 1755093783) The system [employer] generated this result transmit ronan reference range : 0 - 5 HPF. The refe rence range was not u sed to interpret th is result as normal/abnormal . BACTERIA (test code = Negative Negative 1802211774) MUCOUS (test code = Slight Negative LPF A 1840347847) Lab Interpretation (test Abnormal code = 97348-0) [facility] HospitalACTIVATED PARTIAL THRMPLAS [id number] 13:45:00 Test Item Value Reference Range Interpretation Comments APTT Patient (test code = See_Comment [ Automated message] 3173-2) The system [employer] generated this result transmitted ref erence range: 26 - 36 Seconds. The re ference range was not u sed to interpret this result as normal/abnor mal. Lab Interpretation (test Normal code = 37048-6) [facility]PO[facility])2020-08-21 13:45:00 Test Item Value Reference Range Interpretation Comments POCT GLU (test code = 9661023554) 246 mg/dL 70-110 H Lab Interpretation (test code = Abnormal 49582-8) [facility] HospitalHIV 1/2 AG-AB WITH [id number] 12:32:00 Test Item Value Reference Range Interpretation Comments HIV Negative Negative Semi-quantitative (test code = 87695-8) JAMES (test code = Non-reactive for HIV-1 JAMES) antigen and HIV-1/HIV-2 antibodies. ?No laboratory evidence of HIV infection. ?Repeat in 2-4 weeks if acute HIV infection is suspected. [facility] HospitalCBC WITH [id number] 12:18:00 Test Item Value Reference Range Interpretation [...] RDW-SD (test code = 44.4 fL 38.5-51.6 95076-6) RDW-CV (test code = 14.5 % 12.1-15.4 788-0) PLT (test code = See_Comment H [Automated 777-3) message] The sy stem which generated this result transmitted reference range : 150 - 328 10*3/ ?L. The reference r torito was not used to interpret this result as normal/abnormal . MPV (test code = 8.5 fL 9.8-13 L 87412-2) NRBC/100 WBC (test See_Comment [Automat ed code = 8391041920) message] The system which generated this result transmitted reference range : 0.0 - 10.0 /100 WBCs. The refer ence range was not u sed to interpret th is result as normal/abnormal . NRBC x10^3 (test code <0.01 See_Comment [Auto mated = 0860235257) message] The s ystem which generated this result transmitted reference range : 10*3/?L. The reference range was not used to interpret this result as normal/abnormal . GRAN MAT (NEUT) % 90.4 % (test code = 770-8) IMM GRAN % (test code 1.30 % = 3779177708) LYMPH % (test code = 7.1 % 736-9) MONO % (test code = 0.5 % 5905-5) EOS % (test code = 0.1 % 713-8) BASO % (test code = 0.6 % 706-2) GRAN MAT x10^3(ANC) 7.74 10*3/uL 1.99-6.95 H (test code = 9249346486) IMM GRAN x10^3 (test 0.11 10*3/uL 0-0.06 H code = [id number]) LYMPH x10^3 (test code 0.61 10*3/uL 1.09-3.23 L = 731-0) MONO x10^3 (test code 0.04 10*3/uL 0.36-1.02 L = 742-7) EOS x10^3 (test code = <0.03 0.06-0.53 L 711-2) BASO x10^3 (test code 0.05 10*3/uL 0.01-0.09 = 704-7) POLYCHROMASIA (test 2+ See_Comment [Automa ronan code = 28660-4) message] The system which generated this result transmitted reference range : 2+. The referen ce range was not u sed to interpret th is result as normal/abnormal . BANDS (test code = Increased A 7501844659) Lab Interpretation Abnormal (test code = 53254-1) [facility] 11:48:00 Test Item Value Reference Range Interpretation Comments Procalcitonin (test 0.36 ng/mL <0.07 H code = 4397692817) JAMES (test code = JAMES) INTERPRETATION OF [...] biotics/default.asp Lab Interpretation Abnormal (test code = 45056-0) [facility] HospitalLAAKATE [id number] 10:53:00 Test Item Value Reference Range Interpretation Comments LDH (test code = 5540157192) 351 U/L 300-600 Lab Interpretation (test code = Normal 54212-3) [facility] HospitalSEDIMENTATION [id number] 10:07:00 Test Item Value Reference Range Interpretation Comments ESR (test code = See_Comment H [Automated message] [id number]) The system [employer] generated this result transmitted ref erence range: 0 - 10 m m/HR. The reference r torito was not used to interpret this result as normal/abnor mal. Lab Interpretation (test Abnormal code = 43439-2) [facility] (AUTOMATED)2020-08-21 09:45:00 Test Item Value Reference Range Interpretation Comments POCT GLU (test code = 1742334173) 287 mg/dL 70-110 H Lab Interpretation (test code = Abnormal 14946-7) [facility] HospitalGlycosylated Hemoglobin (A1C)2020-08-21 09:29:00 Test Item Value Reference Range Interpretation Comments HGB A1C (test code = 4548-4) 9.8 % 4-6 H Lab Interpretation (test code = Abnormal 05941-5) [facility]COVID[facility] (ID NOW RAPID TESTING)2020-08-21 09:13:00 Test Item Value Reference Range Interpretation Comments SARS-CoV-2 Rapid ID NOW Not Detected Not Detected (test code = 37608-0) JAMES (test code = JAMES) ID NOW COVID-19 Assay is an isothermal nucleic acid amplification test intended for the qualitative detection of nucleic acid from SARS-CoV-2 viral RNA in nasopharyngeal ([employer]) specimens. It is used under Emergency Use [...] indicated. Lab Interpretation Normal (test code = 50103-4) [facility] HospitalProthrombin Time / [id number] 08:59:00 Test Item Value Reference Range Interpretation Comments PROTIME PATIENT (test See_Comment H [Auto mated message] code = 5964-2) The system [employer] generated this result transmitted ref erence range: 10.1 - 1 2.6 Seconds. The reference range was not used to int erpret this result as normal/abnormal . INR (test code = 6301-6) Nor mal INR <1.1; Warfarin Therap eutic range 2.0 to 3. 0 or 2.5 to 3.5, dep ending upon the indica tions. Lab Interpretation (test Abnormal code = 27231-7) [facility] HospitalaPTT2020-11-09 08:59:00 Test Item Value Reference Range Interpretation Comments APTT Patient (test code = See_Comment [ Automated message] 3173-2) The system [employer] generated this result transmitted ref erence range: 26 - 36 Seconds. The re ference range was not u sed to interpret this result as normal/abnor mal. Lab Interpretation (test Normal code = 23193-1) [facility] HospitalBASI METABOLIC PANEL (NA, K, CL, CO2, GLUCOSE, BUN, CREATININE, CA)2020-08-21 08:52:00 Test Item Value Reference Range Interpretation Comments NA (test code = 136 mmol/L 135-145 2008681769) K (test code = 4.3 mmol/L 3.5-5 3339853115) CL (test code = 104 mmol/L 98-108 0231811434) CO2 TOTAL (test code = 24 mmol/L 23-31 7392482211) AGAP (test code = 2-16 9603436555) BUN (test code = 8 mg/dL 7-23 2775089748) GLUCOSE (test code = 308 mg/dL 70-110 H 7655112962) CREATININE (test code = 0.72 mg/dL 0.6-1.25 4787266732) CALCIUM (test code = 7.8 mg/dL 8.6-10.6 L 1488007148) eGFR Calculation mL/min/1.73m2 (Non-) (test code = 2632392802) eGFR Calculation mL/min/1.73m2 () (test code = 2044361011) JAMES (test code = JAMES) Association of [...] tests). Lab Interpretation Abnormal (test code = 57127-7) [facility] HospitalHEPATIC FUNCTION PANEL (15260) (ALB,T.PRO,BILI T,BU/BC,ALT,AST,ALK PHOS)2020-08-21 08:52:00 Test Item Value Reference Range Interpretation Comments TOTAL BILI (test code = 2093598031) 0.8 mg/dL 0.1-1.1 BILI UNCON (test code = 6894050456) 0.3 mg/dL 0.1-1.1 BILI CONJ (test code = 6025143765) 0.0 mg/dL 0-0.3 T PROTEIN (test code = 1771259772) 5.7 g/dL 6.3-8.2 L ALBUMIN (test code = 2105744543) 2.7 g/dL 3.5-5 L ALK PHOS (test code = 9409247408) 245 U/L 34-122 H ALTv (test code = 1742-6) 37 U/L 5-50 AST(SGOT) (test code = 1102485868) 43 U/L 13-40 H Lab Interpretation (test code = Abnormal 28996-4) [facility]
--- NOTE | 2022-10-24 20:01 | EDPHYS ---
Physician Documentation [facility] Name: Kiel Ngo Age: 72 yrs Sex: Male : 1950 Arrival Date: 10/24/2022 Time: 19:50 Bed 19 Private MD: ED Physician Carie Quintanilla HPI: 10/24 20:02 This 72 yrs old Male presents to ER via EMS with complaints of Lower abdominal pain. sd2 20:02 72-year-old male well-known to our facility presents via EMS with chief complaint of sd2 lower abdominal pain and chronic right hip pain. He reports his lower abdominal pain feels like gas and he tried taking Pepto-Bismol and Mylanta at home earlier today with no relief. He reports he would just like something to help with his gas. 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 He denies any significant issues with chest pain or shortness of breath at this time. He denies any associated fever, vomiting or diarrhea. He does endorse some associated constipation but is on chronic narcotics. His last bowel movement was this morning. The patient also reports being out of his Dilaudid and anxiety medication for the past 2 weeks and has not been able to get in touch with his primary care doctor. Patient was seen by myself last week for similar pain and had a negative CT scan work-up at that time.. Historical: - Allergies: 20:00 Demerol; jb4 20:00 metformin; jb4 20:00 Morphine; jb4 - Home Meds: 20:00 hydromorphone 4 mg Oral tab 1 tab three times a day [Active]; Klonopin 2 mg Oral TbDi 2 jb4 tabs 4 times a day [Active]; - PMHx: 20:00 chronic back pain; Chronic right leg pain; neuropathy; Atrial fibrillation; jb4 - PSHx: 20:00 back sx; PANCREAS SX; R. Ankle SX; jb4 - Immunization history:: Adult Immunizations unknown. - Social history:: Smoking status: Patient denies any tobacco usage or history of. ROS: 20:02 Constitutional: Negative for fever, chills, and weight loss, Eyes: Negative for injury, sd2 pain, redness, and discharge, Cardiovascular: Negative for chest pain, palpitations, and edema, Respiratory: Negative for shortness of breath, cough, wheezing. 20:02 : Negative for dysuria, frequency or hematuria. MS/Extremity: Negative for injury and deformity, Skin: Negative for injury, rash, and discoloration, Neuro: Negative for headache, numbness and tingling. 20:02 Abdomen/GI: Positive for abdominal pain, constipation, Negative for nausea, vomiting, and diarrhea. Exam: 20:02 Constitutional: This is a well developed, well nourished patient who is awake, alert, sd2 and in no acute distress. Head/Face: Normocephalic, atraumatic. Eyes: EOMI, normal conjunctiva bilaterally Chest/axilla: Normal chest wall appearance and motion. Nontender with no deformity. Cardiovascular: Regular rate and rhythm with a normal S1 and S2. No gallops, murmurs, or rubs. 2+ distal pulses. Respiratory: Lungs have equal breath sounds bilaterally, clear to auscultation and percussion. No rales, rhonchi or wheezes noted. No increased work of breathing, no retractions or nasal flaring. Abdomen/GI: Soft, non-tender, with normal bowel sounds. No guarding or rebound. No evidence of tenderness throughout. Skin: Warm, dry with normal turgor. Normal color with no rashes, no lesions, and no evidence of cellulitis. MS/ Extremity: Pulses equal, no cyanosis. Neurovascular intact. Full, normal range of motion. Ambulatory without difficulty. Psych: Awake, alert, with orientation to person, place and time. Behavior, mood, and affect are within normal limits. Vital Signs: 19:52 BP 169 / 97; Pulse 100; Resp 16; Temp 97.5(TE); Pulse Ox 97% on R/A; Weight 83.91 kg jb4 (R); Height 5 ft. 11 in. (180.34 cm); Pain 5/10; 19:52 Body Mass Index 25.80 (83.91 kg, 180.34 cm) jb4 MDM: 19:58 Patient medically screened. sd2 20:02 Differential Diagnosis Gastritis, cholecystitis, pancreatitis, SBO, diverticulitis, sd2 kidney stone, appendicitis, UTI, dehydration, electrolyte abnormality among others. Data reviewed: vital signs, nurses notes, EMS record, old medical records, Multiple recent prior ER visits. I considered the following discharge prescriptions or medication management in the emergency department I discussed and recommended Over The Counter medications, Medications were administered in the Emergency Department. See MAR. Test considered but Not performed: Labs: CBC, CMP, Lipase, UA. X-ray: KUB. Historians other than the Patient: EMS: . Care significantly affected by the following chronic conditions: A-fib, chronic pain. Care significantly affected by the following Social Determinants of Health: Poor access to transportation, Misuse of his narcotic pain medication with overutilization of the Emergency Department. Counseling: I had a detailed discussion with the patient and/or guardian regarding: the historical points, exam findings, and any diagnostic results supporting the discharge/admit diagnosis, the need for outpatient follow up, to return to the emergency department if symptoms worsen or persist or if there are any questions or concerns that arise at home. ED course: Prior ER visits reviewed including visit from 2 days ago. The patient reports he has had this pain before and feels like his normal gas pain. He is only requesting medication for his gas. He has declined labs or IV placement at this time or further imaging. He is comfortable with the plan to receive simethicone and a dose of Toradol for his pain. The patient does have a history of overusing his Dilaudid and therefore running out of his medication prior to the time he should be able to receive a refill. Therefore, he will not be treated with any further narcotics in the emergency department for his chronic pain. He was advised to follow-up with his primary care doctor and pain management. He verbalizes understanding of discharge plan and strict return precautions at this time and has a benign abdominal exam.. Administered Medications: 20:07 Drug: Simethicone 80 mg Route: PO; jb4 20:15 Follow up: Response: No adverse reaction jb4 20:08 Drug: Ketorolac 30 mg Route: IM; Site: right deltoid; jb4 20:15 Follow up: Response: No adverse reaction jb4 20:14 Drug: Ondansetron 4 mg Route: PO; jb4 20:15 Follow up: Response: Medication administered at discharge. jb4 Disposition Summary: 10/24/22 20:01 Discharge Ordered Location: Home sd2 Problem: an ongoing problem sd2 Symptoms: have improved sd2 Condition: Stable sd2 Diagnosis - Other chronic pain sd2 - Lower abdominal pain, unspecified sd2 Followup: sd2 - With: Isai Snow MD - When: 2 - 3 days - Reason: Recheck today's complaints, Continuance of care, Re-evaluation by your physician Followup: sd2 - With: Óscar Holman MD - When: Tomorrow - Reason: Continuance of care, Re-evaluation by your physician Discharge Instructions: - Discharge Summary Sheet sd2 - Abdominal Pain, Adult sd2 - Chronic Pain, Adult sd2 Forms: - Medication Reconciliation Form sd2 - Thank You Letter sd2 - Antibiotic Education sd2 - Prescription Opioid Use sd2 Signatures: Ankit Hall RN RN jb4 Carie Quintanilla MD MD sd2
--- NOTE | 2022-10-24 20:01 | ER ---
Nurse's Notes [facility] Name: Kiel Ngo Age: 72 yrs Sex: Male : 1950 Arrival Date: 10/24/2022 Time: 19:50 Bed 19 Private MD: Diagnosis: Other chronic pain;Lower abdominal pain, unspecified Presentation: 10/24 19:52 Chief complaint: EMS states: Pt reports abdominal pain 8-9 a.m. and PATRICIA hip and leg jb4 pain. Took Metoprolol this morning, did not have his night time meds. His last b/p was 160/90, HR 80, O2 97% on RA, RR 18. Coronavirus screen: At this time, the client does not indicate any symptoms associated with coronavirus-19. Ebola Screen: No symptoms or risks identified at this time. Initial Sepsis Screen: Does the patient meet any 2 criteria? HR > 90 bpm. Yes Does the patient have a suspected source of infection? Yes: Acute abdominal pain. Risk Assessment: Do you want to hurt yourself or someone else? Patient reports no desire to harm self or others. Onset of symptoms was October 24, 2022. Transition of care: patient was not received from another setting of care. 19:52 Method Of Arrival: EMS: [facility] jb4 19:52 Acuity: JOZEF 3 jb4 Historical: - Allergies: 20:00 Demerol; jb4 20:00 metformin; jb4 20:00 Morphine; jb4 - Home Meds: 20:00 hydromorphone 4 mg Oral tab 1 tab three times a day [Active]; Klonopin 2 mg Oral TbDi 2 jb4 tabs 4 times a day [Active]; - PMHx: 20:00 chronic back pain; Chronic right leg pain; neuropathy; Atrial fibrillation; jb4 - PSHx: 20:00 back sx; PANCREAS SX; R. Ankle SX; jb4 - Immunization history:: Adult Immunizations unknown. - Social history:: Smoking status: Patient denies any tobacco usage or history of. Screenin:15 [facility] ED Fall Risk Assessment (Adult) History of falling in the last 3 months, jb4 including since admission No falls in past 3 months (0 pts) Confusion or Disorientation No (0 pts) Intoxicated or Sedated No (0 pts) Impaired Gait No (0 pts) Mobility Assist Device Used Yes (1 pt) Altered Elimination No (0 pt) Score/Fall Risk Level 0 - 2 = Low Risk Oriented to surroundings, Maintained a safe environment. Abuse screen: Denies threats or abuse. Nutritional screening: No deficits noted. Tuberculosis screening: No symptoms or risk factors identified. Assessment: 20:15 General: Appears in no apparent distress. comfortable, Behavior is calm, cooperative, jb4 appropriate for age. Pain: Complains of pain in abdomen, right leg and left leg Pain does not radiate. Pain currently is 5 out of 10 on a pain scale. Neuro: Level of Consciousness is awake, alert, obeys commands, Oriented to person, place, time, situation. Cardiovascular: Patient's skin is warm and dry. Respiratory: Airway is patent Respiratory effort is even, unlabored, Respiratory pattern is regular, symmetrical. GI: Abdomen is flat, non-distended, Patient currently denies nausea, vomiting. : No signs and/or symptoms were reported regarding the genitourinary system. EENT: No signs and/or symptoms were reported regarding the EENT system. Derm: Skin is intact, Skin is pink, warm \T\ dry. Musculoskeletal: Circulation, motion, and sensation intact. Range of motion: intact in all extremities. Vital Signs: 19:52 BP 169 / 97; Pulse 100; Resp 16; Temp 97.5(TE); Pulse Ox 97% on R/A; Weight 83.91 kg jb4 (R); Height 5 ft. 11 in. (180.34 cm); Pain 5/10; 19:52 Body Mass Index 25.80 (83.91 kg, 180.34 cm) jb4 ED Course: 19:50 Patient arrived in ED. jb4 19:52 Ankit Hall, DIEGO is Primary Nurse. jb4 19:58 Carie Quintanilla MD is Attending Physician. sd2 20:00 Triage completed. jb4 20:00 Isai Snow MD is Referral Physician. sd2 20:00 Óscar Holman MD is Referral Physician. sd2 20:00 Arm band placed on right wrist. jb4 20:15 Patient has correct armband on for positive identification. Bed in low position. Call jb4 light in reach. Side rails up X 1. 20:19 No provider procedures requiring assistance completed. Patient did not have IV access jb4 during this emergency room visit. Administered Medications: 20:07 Drug: Simethicone 80 mg Route: PO; jb4 20:15 Follow up: Response: No adverse reaction jb4 20:08 Drug: Ketorolac 30 mg Route: IM; Site: right deltoid; jb4 20:15 Follow up: Response: No adverse reaction jb4 20:14 Drug: Ondansetron 4 mg Route: PO; jb4 20:15 Follow up: Response: Medication administered at discharge. jb4 Medication: 20:15 VIS not applicable for this client. jb4 Outcome: 20:01 Discharge ordered by . sd2 20:19 Discharged to home via ambulance. jb4 20:19 Condition: stable 20:19 Discharge instructions given to patient, Instructed on discharge instructions, follow up and referral plans. Demonstrated understanding of instructions, follow-up care. 20:19 Patient left the ED. jb4 Signatures: Ankit Hall RN RN jb4 Carie Quintanilla MD MD sd2 Corrections: (The following items were deleted from the chart) 20:02 19:52 Pulse 100bpm; Resp 16bpm; Pulse Ox 97% RA; Temp 97.5F Temporal; 83.91 kg jb4 Reported; Height 5 ft. 11 in.; BMI: 25.8; Pain 5/10; jb4
[2022-10-24] MEDS ORDERED: KETOROLAC 30 MG/ML INJ ONE (20:05)
[2022-10-24] MEDS ORDERED: SIMETHICONE 80 MG TAB ONE (20:05)
[2022-10-24] MEDS ORDERED: ONDANSETRON 4 MG (ODT) TAB ONE (20:14)
[2022-10-24 20:24] VITALS: BP 169/97; TEMP 97.5; O2SAT 97
== END 2022-10-24 20:19 | disposition home or self-care (01) ==
LOC: ER 19:46
DX: G89.29 Other chronic pain (principal); Z88.5 Allergy status to narcotic agent; Z88.8 Allergy status to other drugs, medicaments and biological substances
CPT/HCPCS: 96372; 99283; Q0162

== ENCOUNTER 2022-10-31 16:42 | Emergency (ER) | payer OTHER ==
--- OUTSIDE RECORDS SUMMARY | 2022-10-31 16:50 | XMS REPORT | Continuity of Care Document ---
:1950 Author Organization [facility] t Address [address] [place] [address] Care Team Providers Name Role Phone CALVIN WORLEY Primary Care Physician Unavailable KELLY WASHINGTON Attending Clinician Unavailable SWEETIE STOUT Attending Clinician Unavailable Sweetie Stout MD Attending Clinician ADRIANA HAINES Attending Clinician Unavailable Calvin Worley MD Attending Clinician Ruchi Peters RN Attending Clinician Paco Lacey DO Attending Clinician Vika Harrison MD Attending Clinician Alvarez Rowe MD Attending Clinician ALVAREZ RWOE Attending Clinician Unavailable PACO LACEY Attending Clinician Unavailable Doctor Unassigned, [place] Attending Clinician Unavailable Wilder VILLAREAL, Angi K.HWong Attending Clinician Jl Mccabe MD Attending Clinician Kelly Washington MD Attending Clinician [phone] Mukul Gallardo MD Attending Clinician MUKUL GALLARDO Admitting Clinician Unavailable Harrison MD, Premal G Admitting Clinician KRUPA VIKA G Admitting Clinician Unavailable Nicci VILLAREAL, Mukul Anand Admitting Clinician Payers Payer Name Policy Type Policy Number Effective Date Expiration Date Tony doe MEDICARE PART A [id number] 2007 \\T\\ B 00:00:00 [employer] INDEMNITY [id number] 2016 00:00:00 MEDICARE PART A [id number] 2014 \\T\\ B - MEDICARE 00:00:00 INDEMNITY/TRADITIO [id number] NAL CHOICE - [employer] 00:00:00 Problems Condition [...] ents Source Name Type Date Date Clinician [place] [facility] Active Rash 2019- Univers ty to [...] Quantity Comments Source Exposure to Not sure [place] of SARS-CoV-2 [place] [facility] (event) Branch History of Chews Tobacco University of tobacco use [place] [facility] History SDOH 2020-11-17 2020-11-17 5 University o f Financial 00:00:00 00:00:00 [place] [facility] History SDPA Food 2020-11-17 2020-11-17 1 Univers ity of Worry 00:00:00 00:00:00 [place] [facility] History SDOH Food 2020-11-17 2020-11-17 1 Univers ity of Scarcity 00:00:00 00:00:00 [place] [facility] History SDOH 2020-11-17 2020-11-17 1 University o f Transport Med 00:00:00 00:00:00 [place] [facility] History SDOH 2020-11-17 2020-11-17 1 University o f Transport Non-Med 00:00:00 00:00:00 [facility] ed[facility] Branch Education 2020-11-16 2020-11-16 21 [place] of 00:00:00 00:00:00 [facility] Alcohol intake 2020-11-16 2020-11-16 Ex-drinker [facility] 00:00:00 00:00:00 (finding) [facility] Tobacco use and 2020-08-21 2020-08-21 Former user Universi ty of exposure 00:00:00 00:00:00 [facility] Tobacco Comment 2020-08-21 2020-08-21 quit 10 years Univer sity of 00:00:00 00:00:00 ago, started in [place] [facility] ical 2nd year of Branch college (~40 years) Alcohol Comment 2020-08-21 2020-08-21 Used to have 2-3 Uni versity of 00:00:00 00:00:00 six-packs of [place] [facility]ica l beer daily x 20 Branch years, quit 2004 History [facility] 2020-08-21 2020-08-21 99 University o f Alcohol Frequency 00:00:00 00:00:00 [place] [facility] ed[facility] History [facility] 2020-08-21 2020-08-21 99 [place] o f Alcohol Std 00:00:00 00:00:00 [place] [facility] Drinks Branch History [facility] 2020-08-21 2020-08-21 99 [place] o f Alcohol Binge 00:00:00 00:00:00 [facility] [place] Sex [birth year] Universit y of 00:00:00 00:00:00 [facility] Smoking Status Start Date Stop Date Source Never smoker [facility] Medications Ordered Filled Start Stop [...] by ity of tablet 22:47: mouth at [place] 18 bedtime. Medical Branch HYDROmorpho 2020-0 Yes [...] by ity of tablet 22:47: mouth at [place] 18 bedtime. Medical Branch HYDROmorpho 0 Yes [...] by ity of tablet 16:47: mouth at [place] 18 bedtime. Medical Branch HYDROmorpho 0 Yes [...] 0845, Until Discontinu ed, Routine amLODIPine Yes [id number] 10mg Take 1 Univers 10 mg 3-07 tablet by ity of tablet 00:00: mouth [place] 00 daily. Medical Branch clotrimazol Yes [id number] Apply to Univers e 1 % 3-07 face/ears, ity of topical 00:00: armpits, [place] cream 00 pannus and Medical back/any Branch other rash twice a day fluocinonid 0 Yes [id number] Apply to Univers e 0.05 % 3-07 scalp ity of solution 00:00: twice a [place] 00 day Medical Branch triamcinolo Yes [id number] Apply to Univers ne 3-07 back, ity of acetonide 00:00: armpits [place] 0.1 % cream 00 and other Med ical affected Branch areas twice daily, please mix with clotrimazo le hydrOXYzine Yes [id number] 10mg Take 1 Univers 10 mg 3-07 tablet by ity of tablet 00:00: mouth 2 00 (two) Medical times Branch daily. amLODIPine Yes [id number] 10mg Take 1 Univers 10 mg 3-07 tablet by ity of tablet 00:00: mouth [place] 00 daily. Medical Branch clotrimazol Yes [id number] Apply to Univers e 1 % 3-07 face/ears, ity of topical 00:00: armpits, [place] cream 00 pannus and Medical back/any Branch other rash twice a day fluocinonid Yes [id number] Apply to Univers e 0.05 % 3-07 scalp ity of solution 00:00: twice a day Medical Branch triamcinolo Yes [id number] Apply to Univers ne 3-07 back, ity of acetonide 00:00: armpits [place] 0.1 % cream 00 and other Med ical affected Branch areas twice daily, please mix with clotrimazo le hydrOXYzine Yes [id number] 10mg Take 1 Univers 10 mg 3-07 tablet by ity of tablet 00:00: mouth 2 [place] 00 (two) Medical times Branch daily. amLODIPine Yes [id number] 10mg Take 1 Univers 10 mg 3-07 tablet by ity of tablet 00:00: mouth [place] 00 daily. Medical Branch clotrimazol 0 Yes [id number] Apply to Univers e 1 % 3-07 face/ears, ity of topical 00:00: armpits, [place] cream 00 pannus and Medical back/any Branch other rash twice a day fluocinonid 2020-0 Yes [id number] Apply to Univers e 0.05 % 3-07 scalp ity of solution 00:00: twice a day Medical Branch triamcinolo 2020-0 Yes [id number] Apply to Univers ne 3-07 back, ity of acetonide 00:00: armpits [place] 0.1 % cream 00 and other Med ical affected Branch areas twice daily, please mix with clotrimazo le hydrOXYzine Yes [id number] 10mg Take 1 Univers 10 mg 3-07 tablet by ity of tablet 00:00: mouth 2 [place] (two) Medical times Branch daily. amLODIPine Yes [id number] 10mg Take 1 Univers 10 mg 3-07 tablet by ity of tablet 00:00: mouth [place] 00 daily. Medical Branch clotrimazol Yes [id number] Apply to Univers e 1 % 3-07 face/ears, ity of topical 00:00: armpits, [place] cream 00 pannus and Medical back/any Branch other rash twice a day fluocinonid Yes [id number] Apply to Univers e 0.05 % 3-07 scalp ity of solution 00:00: twice a day Medical Branch triamcinolo 0 Yes [id number] Apply to Univers ne 3-07 back, ity of acetonide 00:00: armpits [place] 0.1 % cream 00 and other Med ical affected Branch areas twice daily, please mix with clotrimazo le hydrOXYzine Yes [id number] 10mg Take 1 Univers 10 mg 3- tablet by ity of tablet 00:00: mouth 2 (two) Medical times Branch daily. cephALEXin 2020-2020- No [id number] 500mg Take 1 Univers 500 mg -04 14- capsule by ity of capsule 00:00: 05:59 mouth [place] 00 :00 every 6 Medical (six) Branch hours for 3 days. cephALEXin 2020-0 2020- No [id number] 500mg Take 1 Univers 500 mg 3-04 14- capsule by ity of capsule 00:00: 05:59 mouth [place] 00 :00 every 6 Medical (six) Branch hours for 3 days. hydrOXYzine 2020-2020- No [id number] 10mg Take 1 Univers 10 mg 3- 03-07 tablet by ity of tablet 00:00: 00:00 mouth 2 [place] 00 :00 (two) Medical times [place] daily. morpHINE Yes 4mg 4 mg, Slow Uni vers injection 4 -06 IV Push, ity of mg 22:40: Q6HPRN, [place] 02 Starting Medical 12/16/20 [place] at 1640, Until Discontinu ed, Routine, Pain [...] 00 :00 dose, Sat Medical 12/16/20 at [place] 0515, Routine lactated 2020- No 1000mL at 125 Univ ers ringers IV 12-16 03-06 mL/hr, ity of infusion 01:00: 00:16 1,000 mL, [place] 1,000 mL 00 :00 IV Medical Infusion, [place] ONCE, 1 dose, 12/15/20 at 1900, Routine iohexol 2020- No 100mL 100 mL, Unive rs (OMNIPAQUE 12-15-05 Intravenou it y of 350 22:24: 22:24 s, ONCE, 1 [place] BULK-100 00 :00 dose, Fri Medica l mL) 12/15/20 at [place] injection 1645, 100 mL Routine cephALEXin 2020- [...] NaCl 0.9% 2020- No 500mL at 999 [facility] ers (NS) bolus 12-15-05 mL/hr, 500 it y of infusion 16:00: 15:26 mL, IV [place] 500 mL 00 :00 Piggyback, Medical ONCE, 1 Branch dose, Fri12/15/20 at 1000, STAT HYDROmorpho Yes 4mg 4 mg, [facility] 05 Oral, BID, ity of (DILAUDID) 15:30: First dose [place] tablet 4 mg 00 (after Medica l last Branch modificati on) on Fri12/15/20 at 0930, Until Discontinu ed, Routine amLODIPine 2020- No [id number] 10mg Take 1 Univers 10 mg 12-1507 tablet by ity of tablet 00:00: 00:00 mouth [place] 00 :00 daily. Medical Branch HYDROmorpho 2020- No 1mg 1 mg, [facility] ers ne 12-14 03-05 Oral, ity of (DILAUDID) 17:35: 15:18 Q6HPRN, [place] tablet 1 mg 30 :06 Starting Medi [facility] 12/14/20 Branch at 1135, Until Fri12/15/20 at 0918, Routine, Pain (scale 7-10) hydrOXYzine Yes 10mg 10 mg, [facility] ers (ATARAX) 304 Oral, BID, ity o f tablet 10 17:30: First [place] mg 00 on [facility] 12/14/20 at Branch 1130, Until Discontinu ed, Routine lisinopriL 0 Yes 5mg 5 mg, Univer s (PRINIVIL,Z -04 Oral, ity of ESTRIL) 17:30: DAILY, [place] tablet 5 mg 00 First dose Me dical on [facility] Branch 12/14/20 at 1130, Until Discontinu ed, Routine triamcinolo 2020- No [id number] Apply to Univers ne 12-14 back, ity of acetonide 00:00: 00:00 armpits [place] 0.1 % cream 00 :00 and other Med ical affected Branch areas twice daily, please mix with clotrimazo le clotrimazol 2020- No [id number] Apply to Univers e 1 % 12-14 face/ears, ity of topical 00:00: 00:00 armpits, [place] cream 00 :00 pannus and Medical back/any Branch other rash twice a day fluocinonid 2020- No [id number] Apply to Univers e 0.05 % 12-14 scalp ity of solution 00:00: 00:00 twice a [place] 00 :00 day Medical Branch hydrOXYzine 2020- No [id number] 10mg Take 1 Univers 10 mg 12-14 [...] 1 [place] injection 4 00 :00 dose, [facility] ical mg 12/12/20 at Branch 2300, Routine traMADoL 2020- No 50mg 50 mg, Univer s (ULTRAM) 12-13 03-03 Oral, ity of tablet 50 03:45: 03:34 ONCE, 1 [place] mg 00 :00 dose, [facility] 12/12/20 at Branch 2145, Routine insulin Yes 15U 15 Units, [facility] rs glargine 12-12 Subcutaneo [...] First dose [place] mg 00 on [facility] 12/11/20 at Branch 2100, Until [...] Oral, ity of (TYLENOL 23:23: 13:49 Q6HPRN, [place] #3) 300-30 43 :08 Starting Medic al [...] 00 Fri12/11/20 Me dical cream at 1315, [place] Until Discontinu ed, Routine hydrocortis 0 Yes [...] ity of 1,000 mg in 19:00: 17:35 [place] NaCl 0.9% 00 :26 Q8H ABX, [...] Routine insulin Yes 5U 5 Units, [facility] lispro 12-11 Subcutaneo ity of (human) 18:00: us, TID [place] (HumaLOG 00 MEALS, Medical U-100) First dose Branch injection 5 on Mon Units 12/11/20 at 1200, Until Discontinu ed Polyethylen Yes 17g 17 g, [facility] rs e Glycol 12-11 Oral, ity of 3350 17:47: [id number], [place] (MIRALAX) 05 Starting Medica l powder 17 g 12/11/20 Br anch at 1147, Until Discontinu ed, Routine, Constipati on acetaminoph Yes 650mg 650 mg, Un toi en 12-11 Oral, ity of (TYLENOL) 16:51: Q6HPRN, [place] tablet 650 28 Starting Medic al mg [...] STAT piperacilli No 3.375g 3.375 g, [place] [facility] n-tazobacta 12-11 IV ity of m (ZOSYN) 12:00: 17:48 [place], [place] injection 00 :24 Q6H, First Medi jose c 3.375 g dose on Branch Fri12/11/20 at 0600, Until Discontinu ed, KAHLIL
Re ason for Anti-Infec tive: Empiric Therapy for Suspected Infection< br>Empiric Therapy Site: Skin / Soft tissue
Duration of therapy: 72 hours sennosides- Yes [id number] 1{tbl} Take 1 [place] [facility] docusate 2-09 tablet by ity of sodium 00:00: mouth 2 [place] 8.6-50 mg 00 (two) Medical per tablet times Branch daily. hydrocortis Yes [id number] Apply to [facility] one 2.5 % 11-21 affected ity of cream 00:00: area(s) 2 [place] 00 (two) Medical times Branch daily. blood sugar Yes [id number] Use to [place] [facility] diagnostic 2 check ity of (FREESTYLE 00:00: blood [place] LITE 00 glucose Medical STRIPS) 4-5 times Branch strip daily. Polyethylen Yes [id number] 17g Take 1 Univers e Glycol 2-09 Packet by ity of 3350 17 00:00: mouth [place] gram powder 00 every 24 Medi jose c (twenty-fo Branch ur) hours as needed for Constipati on. sennosides- Yes [id number] 1{tbl} Take 1 Univers docusate 2-09 tablet by ity of sodium 00:00: mouth 2 [place] 8.6-50 mg 00 (two) Medical per tablet times Branch daily. hydrocortis Yes [id number] Apply to Univers one 2.5 % 2-09 affected ity of cream 00:00: area(s) 2 [place] 00 (two) Medical times Branch daily. blood sugar Yes [id number] Use to Univers diagnostic 11-21 check ity of (FREESTYLE 00:00: blood [place] LITE 00 glucose Medical STRIPS) 4-5 times Branch strip daily. Polyethylen Yes [id number] 17g Take 1 Univers e Glycol 2-09 Packet by ity of 3350 17 00:00: mouth [place] gram powder 00 every 24 Medi jose c (twenty-fo Branch ur) hours as needed for Constipati on. sennosides- Yes [id number] 1{tbl} Take 1 Univers docusate 2-09 tablet by ity of sodium 00:00: mouth 2 [place] 8.6-50 mg 00 (two) Medical per tablet times Branch daily. hydrocortis Yes [id number] Apply to Univers one 2.5 % 2-09 affected ity of cream 00:00: area(s) 2 [place] 00 (two) Medical times Branch daily. blood sugar Yes [id number] Use to Univers diagnostic 11-21 check ity of (FREESTYLE 00:00: blood [place] LITE 00 glucose Medical STRIPS) 4-5 times Branch strip daily. Polyethylen 2020-0 Yes [id number] 17g Take 1 Univers e Glycol 2-09 Packet by ity of 3350 17 00:00: mouth [place] gram powder 00 every 24 Medi jose c (twenty-fo Branch ur) hours as needed for Constipati on. sennosides- Yes [id number] 1{tbl} Take 1 Univers docusate 2-09 tablet by ity of sodium 00:00: mouth 2 [place] 8.6-50 mg 00 (two) Medical per tablet times Branch daily. hydrocortis Yes [id number] Apply to [place] [facility] one 2.5 % 11-21 affected ity of cream 00:00: area(s) 2 [place] 00 (two) Medical times Branch daily. blood sugar Yes [id number] Use to [place] [facility] diagnostic 11-21 check ity of (FREESTYLE 00:00: blood [place] LITE 00 glucose Medical STRIPS) 4-5 times Branch strip daily. Polyethylen Yes [id number] 17g Take 1 Univers e Glycol 11-21 Packet by ity of 3350 17 00:00: mouth [place] gram powder 00 every 24 Medi jose c (twenty-fo Branch ur) hours as needed for Constipati on. Insulin 2020- No [id number] 15U inject 15 Univers Glargine 11-21- Units ity of (LANTUS 00:00: 05:59 under the No Paper Just [employer] SOLOSTAR 00 :00 skin every Medic al U-100 morning Branch INSULIN) for 30 100 unit/mL days. (3 mL) injection venlafaxine 2020- No [id number] 150mg Take 1 Univers XR 150 mg 11-21 capsule by ity of 24 hr 00:00: 05:59 mouth 3 [place] capsule 00 :00 (three) Medical times Branch daily for 30 days. Insulin 2020- No [id number] 15U inject 15 Univers Glargine 11-21-12 Units ity of (LANTUS 00:00: 05:59 under the No Paper Just [employer] SOLOSTAR 00 :00 skin every Medic al U-100 morning Branch INSULIN) for 30 100 unit/mL days. (3 mL) injection venlafaxine 2020- No [id number] 150mg Take 1 Univers XR 150 mg 11-21- capsule by ity of 24 hr 00:00: 05:59 mouth 3 [place] capsule 00 :00 (three) Medical times Branch daily for 30 days. triamcinolo 2020- No [id number] Apply to [place] [facility] ne 11-21-04 area(s) 2 ity of acetonide 00:00: 00:00 (two) [place] 0.1 % cream 00 :00 times Medical daily. Branch cephALEXin 2020- No [id number] 1000mg Take 2 Univers 500 mg 11-21 capsules ity of capsule 00:00: 00:00 by mouth 3 [place] 00 :00 (three) Medical times Branch daily. doxycycline 2020- No [id number] 100mg Take 1 Univers hyclate 100 11-21 capsule by i ty of mg capsule 00:00: 00:00 mouth [place] 00 :00 every 12 Medical (twelve) Branch hours. lactobacill 2020- No [id number] 1{tbl} Take 1 Univers us 11-21 tablet by ity of acidophilus 00:00: 00:00 mouth 2 [place] 25 million 00 :00 (two) Medical cell -100 times Branch mg captab daily. bisacodyL 2020- No [id number] 10mg Insert 1 Univers 10 mg 11-21 Suppositor ity of suppository 00:00: 00:00 y into [place] 00 :00 rectum at Medical bedtime as Branch needed for Constipati on. ALPRAZolam 2020- No [id number] .25mg Take 1 Univers (XANAX) 11-21 tablet by ity of 0.25 mg 00:00: 00:00 mouth 2 [place] tablet 00 :00 (two) Medical times Branch daily. hydrOXYzine 2020- No [id number] 20mg Take 2 Univers 10 mg 11-21 [...] 3 ity of 6 mg 01:13: (three) [place] capsule 36 times Medical daily. Branch Insulin 2019-10 Yes 15U inject 15 Unive rs Glargine 1-12 Units ity of (LANTUS 01:13: under the [place] SOLOSTAR) 36 skin. Medical 100 unit/mL Branch (3 mL) InPn INSULIN 2019-10 Yes 5U inject 5 Univer s ASPART 1-12 Units ity of (NOVOLOG 01:13: under the [facility] FLEXPEN SC) 36 skin. Medical Branch ALPRAZolam [...] 3 ity of 6 mg 01:13: (three) [place] capsule 36 times Medical daily. Branch Insulin 2019-10 Yes 15U inject 15 Unive rs Glargine 1-12 Units ity of (LANTUS 01:13: under the [place] SOLOSTAR) 36 skin. Medical 100 unit/mL Branch (3 mL) InPn INSULIN 2019-10 Yes 5U inject 5 Univer s ASPART 1-12 Units ity of (NOVOLOG 01:13: under the [facility] FLEXPEN SC) 36 skin. Medical Branch ALPRAZolam [...] Units ity of (LANTUS 01:13: under the [place] SOLOSTAR) 36 skin. Medical 100 unit/mL Branch (3 mL) InPn INSULIN 2019-10 Yes 5U inject 5 Univer s ASPART 1-12 Units ity of (NOVOLOG 01:13: under the [facility] s FLEXPEN [place]) 36 skin. Medical Branch ALPRAZolam 2019-10 Yes .25mg Take 0.25 U nivers (XANAX) 1-12 mg by ity of 0.25 mg 01:13: mouth 2 [place] tablet 36 (two) Medical times Branch daily. HYDROXYZINE 2019-10 2020- No 25mg Take 25 mg Univers PAMOATE 1-11 11-11 by mouth ity of ORAL 20:04: 00:00 daily. [place] 34 :00 Medical Branch hydrocortis 2019-10 Yes [id number] Apply to Univers one 2.5 % 1-11 affected ity of cream 00:00: area(s) 2 [place] 00 (two) Medical times Branch daily. hydrOXYzine 2019-10 Yes [id number] 20mg Take 2 Univers 10 mg 1-11 tablets by ity of tablet 00:00: mouth [place] 00 every 8 Medical (eight) Branch hours as needed for Itching or Anxiety. Polyethylen 2019-10 Yes [id number] 17g Take 1 Univers e Glycol 1-11 Packet by ity of 3350 17 00:00: mouth [place] gram powder 00 every 24 Medi jose c (twenty-fo Branch ur) hours as needed for Constipati on. hydrocortis 2019-10 Yes [id number] Apply to Univers one 2.5 % 1-11 affected ity of cream 00:00: area(s) 2 [place] 00 (two) Medical times Branch daily. hydrOXYzine 2019- Yes [id number] 20mg Take 2 Univers 10 mg 1-11 tablets by ity of tablet 00:00: mouth [place] 00 every 8 Medical (eight) Branch hours as needed for Itching or Anxiety. Polyethylen 2019- Yes [id number] 17g Take 1 Univers e Glycol 1-11 Packet by ity of 3350 17 00:00: mouth [place] gram powder 00 every 24 Medi jose c (twenty-fo Branch ur) hours as needed for Constipati on. hydrocortis 2019- Yes [id number] Apply to Univers one 2.5 % 1-11 affected ity of cream 00:00: area(s) 2 [place] (two) Medical times Branch daily. hydrOXYzine 2019-10 Yes [id number] 20mg Take 2 Univers 10 mg 1-11 tablets by ity of tablet 00:00: mouth [place] 00 every 8 Medical (eight) Branch hours as needed for Itching or Anxiety. Polyethylen 2019- Yes [id number] 17g Take 1 Univers e Glycol 1-11 Packet by ity of 3350 17 00:00: mouth [place] gram powder 00 every 24 Medi jose c (twenty-fo Branch ur) hours as needed for Constipati on. hydrocortis 2019-10 Yes [id number] Apply to Univers one 2.5 % 1-11 affected ity of cream 00:00: area(s) 2 [place] (two) Medical times Branch daily. hydrOXYzine 2019-10 Yes [id number] 20mg Take 2 Univers 10 mg 1-11 tablets by ity of tablet 00:00: mouth [place] 00 every 8 Medical (eight) Branch hours as needed for Itching or Anxiety. Polyethylen 2019-10 Yes [id number] 17g Take 1 Univers e Glycol 1-11 Packet by ity of 3350 17 00:00: mouth [place] gram powder 00 every 24 Medi jose c (twenty-fo Branch ur) hours as needed for Constipati on. hydrocortis 2019-10 Yes [id number] Apply to Univers one 2.5 % 1-11 affected ity of cream 00:00: area(s) 2 [place] 00 (two) Medical times Branch daily. hydrOXYzine 2019-10 Yes [id number] 20mg Take 2 Univers 10 mg 1-11 tablets by ity of tablet 00:00: mouth [place] 00 every 8 Medical (eight) Branch hours as needed for Itching or Anxiety. Polyethylen 2019- Yes [id number] 17g Take 1 Univers e Glycol 1-11 Packet by ity of 3350 17 00:00: mouth [place] gram powder 00 every 24 Medi jose c (twenty-fo Branch ur) hours as needed for Constipati on. hydrocortis 2019-10 Yes [id number] Apply to Univers one 2.5 % 1-11 affected ity of cream 00:00: area(s) 2 [place] 00 (two) Medical times Branch daily. hydrOXYzine 2019- Yes [id number] 20mg Take 2 Univers 10 mg 1-11 tablets by ity of tablet 00:00: mouth [place] 00 every 8 Medical (eight) Branch hours as needed for Itching or Anxiety. Polyethylen 2019- Yes [id number] 17g Take 1 Univers e Glycol 1-11 Packet by ity of 3350 17 00:00: mouth [place] gram powder 00 every 24 Medi jose c (twenty-fo Branch ur) hours as needed for Constipati on. hydrocortis 2019- Yes [id number] Apply to Univers one 2.5 % 1-11 affected ity of cream 00:00: area(s) 2 [place] 00 (two) Medical times Branch daily. hydrOXYzine 2019- Yes [id number] 20mg Take 2 Univers 10 mg 1-11 tablets by ity of tablet 00:00: mouth [place] 00 every 8 Medical (eight) Branch hours as needed for Itching or Anxiety. Polyethylen 2019- Yes [id number] 17g Take 1 Univers e Glycol 1-11 Packet by ity of 3350 17 00:00: mouth [place] gram powder 00 every 24 Medi jose c (twenty-fo Branch ur) hours as needed for Constipati on. triamcinolo 2019- 2020- No [id number] Apply to Univers ne 10-23 area(s) 2 ity of acetonide 00:00: 05:59 (two) [place] 0.1 % cream 00 :00 times Medical daily for Branch 14 days. triamcinolo 2019- 2020- No [id number] Apply to Univers ne 10-23 area(s) 2 ity of acetonide 00:00: 05:59 (two) [place] 0.1 % cream 00 :00 times Medical daily for Branch 14 days. triamcinolo 2020- 2020- No [id number] Apply to [place] [facility] ne 10-23 area(s) 2 ity of [...] tablet 1 mg 53 Starting [facility] 08/22/20 at 0907, Until Discontinu ed, Routine, Pain (scale 7-10) hydrocortis 2019-10 Yes Topical Uni vers one 2.5 % 1-10 (Apply To ity o f cream 02:00: Affected [place] 00 Areas), Medical BID, First Branch dose on [facility] 08/21/20 at 2000, Until Discontinu ed, Routine triamcinolo 2019-10 Yes Topical, Un toi ne 1-10 BID, First ity of acetonide 02:00: dose on [place] (TRIDERM) [facility] Medical 0.1 % cream 08/21/20 at Br anch 2000, Until Discontinu ed, Routine hydrOXYzine 2019-10 Yes 20mg 20 mg, Univ ers (ATARAX) 09 Oral, ity of tablet 20 17:39: Q8HPRN, [place] mg 12 Starting [facility] 08/21/20 at 1139, Until Discontinu ed, Routine, Itching, Anxiety sennosides- 2019-10 Yes 1{tbl} 1 tablet, Univers docusate 10-21 Oral, ity of sodium 15:00: DAILY, [place] (SENOKOT-S) 00 First dose Me dical 8.6-50 mg on [facility] per tablet 08/21/20 at 1 tablet [...] [place] capsule [address] [facility] Medica l mg 08/21/20 at Branch [...] 25 59 :43 Starting Medica l mg [facility] 08/21/20 at 0656, Until Fri08/21/20 at 1139, Routine, Itching, Mild Rash, Congestion /Allergies , alternate with hydroxyzin e hydrOXYzine 2019-10- No 10mg 10 mg, Uni vers (ATARAX) 10-21 Oral, ity of tablet 10 10:20: 12:57 Q6HPRN, [place] mg 22 :12 Starting Medical [facility] 08/21/20 at 0420, Until Fri08/21/20 at [...] [facility] 00 :00 08/21/20 at [facility] 0330, Branch Routine Polyethylen 2019-10 Yes 17g 17 g, [facility] Glycol 10-21 Oral, ity of 3350 08:29: [id number], [place] (MIRALAX) 09 Starting Medica l powder 17 g [facility] 08/21/20 at 0229, Until Discontinu ed, Routine, Constipati on lanolin 2019-10 Yes Topical, Univer s alcohol-mo- 10-21 PRN, ity of w.pet-[place] 08:26: [place] (EUCERIN[place] 30 [facility] Medical cream 08/21/20 at Branch 0226, [...] 1-3) sotalol 2019-10 2020- No Take by [facility] s (BETAPACE) 10-21 mouth ity of 240 mg 07:43: 00:00 every 12 [place] tablet 30 :00 (twelve) Medical hours. Branch blood sugar Yes Use to [facility] ers diagnostic 4-25 check ity of (FREESTYLE 00:00: blood [place] LITE 00 glucose Medical STRIPS) 4-5 times Branch strip daily. blood sugar Yes Use to [facility] ers diagnostic 4-25 check ity of (FREESTYLE 00:00: blood [place] LITE 00 glucose Medical STRIPS) 4-5 times Branch strip daily. blood sugar Yes Use to [facility] ers diagnostic 4-25 check ity of (FREESTYLE 00:00: blood [place] LITE 00 glucose Medical STRIPS) 4-5 times Branch strip daily. blood sugar Yes Use to [facility] ers diagnostic 4-25 check ity of [...] 2021-08-22 13:00:00 148 mm[Hg] Univer sity of [facility] Diastolic blood 2021-08-22 13:00:00 84 mm[Hg] Unive rsity of [facility] Heart rate 2021-08-22 13:00:00 103 /min [facility] Respiratory rate 2021-08-22 13:00:00 18 /min [facility] Oxygen saturation in 2021-08-22 13:00:00 95 /min University of Arterial blood by [facility] Pulse oximetry [place] Body temperature 2021-08-22 12:22:00 36.72 [facility] Systolic blood 2020-12-17 18:35:00 139 mm[Hg] Univer sity of [facility] Diastolic blood 2020-12-17 18:35:00 87 mm[Hg] Unive rsity of [facility] Heart rate 2020-12-17 18:35:00 110 /min [facility] Body temperature 2020-12-17 18:35:00 37.72 [facility] Respiratory rate 2020-12-17 18:35:00 18 /min [facility] saturation in 2020-12-17 18:35:00 93 /min University of Arterial blood by [facility] Pulse oximetry Branch Body height 2020-12-12 08:21:00 180.3 cm [facility] [place] [facility] Body weight 2020-12-12 08:21:00 103.42 kg [facility] [place] [facility] BMI 2020-12-12 08:21:00 31.80 kg/m2 [facility] [place] [facility] Systolic blood 2020-12-17 18:35:00 139 mm[Hg] Univer sity of pressure [place] [facility] Diastolic blood 2020-12-17 18:35:00 87 mm[Hg] Unive rsity of pressure [place] [facility] Heart rate 2020-12-17 18:35:00 110 /min [facility] [place] [facility] Body temperature 2020-12-17 18:35:00 37.72 [facility] ers[facility] [place] [facility] Respiratory rate 2020-12-17 18:35:00 18 /min Univ ersity [facility] [place] [facility] Oxygen saturation in 2020-12-17 18:35:00 93 /min University of Arterial blood by [facility] Pulse oximetry Branch Body height 2020-12-12 08:21:00 180.3 cm [facility] [place] [facility] Body weight 2020-12-12 08:21:00 103.42 kg [facility] [place] [facility] BMI 2020-12-12 08:21:00 31.80 kg/m2 [facility] [place] [facility] Systolic blood 2020-08-23 19:27:00 140 mm[Hg] Univer sity of pressure [place] [facility] Diastolic blood 2020-08-23 19:27:00 79 mm[Hg] Unive rsity of pressure [place] [facility] Heart rate 2020-08-23 19:27:00 99 /min [facility] [place] [facility] Body temperature 2020-08-23 19:27:00 36 [facility] Univ ers[facility] [place] [facility] Respiratory rate 2020-08-23 19:27:00 18 /min Univ ersity [facility] [place] [facility] Oxygen saturation in 2020-08-23 19:27:00 93 /min University of Arterial blood by [facility] Pulse oximetry Branch Body weight 2020-08-21 07:20:00 104.962 kg [facility] [place] [facility] BMI 2020-08-21 07:20:00 32.27 kg/m2 [facility] [place] [facility] Systolic blood 2020-08-23 19:27:00 140 mm[Hg] Univer sity of pressure [facility] Diastolic blood 2020-08-23 19:27:00 79 mm[facility]Hg] [facility] pressure [facility] Heart rate 2020-08-23 19:27:00 99 /min [facility] Body temperature 2020-08-23 19:27:00 36 [facility] Respiratory rate 2020-08-23 19:27:00 18 /min [facility] Oxygen saturation in 2020-08-23 19:27:00 93 /min [facility] blood by [facility] Pulse oximetry [place] Body weight 2020-08-21 07:20:[address] [facility] BMI 2020-08-21 07:20:00 32.27 kg/m2 [facility] Procedures Procedure Date / Time Performing Clinician Source Performed POCT GLUCOSE (AUTOMATED) 2020-12-17 15:42:00 Favio Harrisonal G Uni [facility] BASIC METABOLIC PANEL 2020-12-17 10:45:00 Paul Bean [facility] (NA, K, CL, CO2, GLUCOSE, [facility] Medica l Branch BUN, CREATININE, CA) CBC WITH DIFF 2020-12-17 10:45:00 Paul Bean [facility] POCT GLUCOSE (AUTOMATED) 2020-12-17 02:36:00 [facility] XR TIBIA FIBULA 2 VW LEFT 2020-12-16 23:38:00 [facility] PO[facility] GLUCOSE (AUTOMATED) 2020-12-16 23:20:00 Harrison, [facility]al [facility] PO[facility] GLUCOSE (AUTOMATED) 2020-12-16 20:10:00 Harrison, Premal [facility] POCT GLUCOSE (AUTOMATED) 2020-12-16 14:43:00 [facility] BASIC METABOLIC PANEL 2020-12-16 13:51:00 Paul Bean [facility] (NA, K, CL, CO2, GLUCOSE, [place] [facility] BUN, CREATININE, CA) CBC WITH DIFF 2020-12-16 13:51:00 Paul Bean [facility] POCT GLUCOSE (AUTOMATED) 2020-12-16 04:00:00 Harrison, Premal G Uni versity of [facility] POCT GLUCOSE (AUTOMATED) 2020-12-16 00:14:00 Harrison, Premal G Uni versity [facility] CT CHEST PULMONARY 2020-12-15 22:29:38 Paul Bean [facility] ANGIOGRAM [facility] POCT GLUCOSE (AUTOMATED) 2020-12-15 19:26:00 Harrison, Premal G [facility] POCT GLUCOSE (AUTOMATED) 2020-12-15 15:13:00 Krupa, Premal G Uni [facility] HB ECG ROUTINE & RHYTHM 2020-12-15 14:25:27 Cailin Romo [facility] MAGNESIUM 2020-12-15 12:01:00 Paul Bean Sivakumar [facility] BASIC METABOLIC PANEL 2020-12-15 12:01:00 Paul Bean [facility] (NA, K, CL, CO2, GLUCOSE, [place] [facility] BUN, CREATININE, CA) CBC WITH DIFF 2020-12-15 12:01:00 Paul Bean [facility] POCT GLUCOSE (AUTOMATED) 2020-12-15 03:57:00 Harrison, Premal G Uni versity of [facility] POCT GLUCOSE (AUTOMATED) 2020-12-14 23:31:00 Harrison, Premal G Uni versity of [facility] POCT GLUCOSE (AUTOMATED) 2020-12-14 19:08:00 Harrison, Premal G Uni versity of [facility] POCT GLUCOSE (AUTOMATED) 2020-12-14 15:11:00 Harrison, Premal G Uni versity of [facility] POCT GLUCOSE (AUTOMATED) 2020-12-14 02:36:00 Harrison, Premal G Uni versity of [facility] POCT GLUCOSE (AUTOMATED) 2020-12-13 23:32:00 Harrison, Premal G Uni versity of [facility] POCT GLUCOSE (AUTOMATED) 2020-12-13 18:08:00 Harrison, Premal G Uni versity of [facility] BASIC METABOLIC PANEL 2020-12-13 15:39:00 Paul Bean [facility] (NA, K, CL, CO2, GLUCOSE, [place] [facility] BUN, CREATININE, CA) CBC WITH DIFF 2020-12-13 15:39:00 Paul Bean [facility] POCT GLUCOSE (AUTOMATED) 2020-12-13 14:06:00 Harrison, Premal G Uni versity of [facility] POCT GLUCOSE (AUTOMATED) 2020-12-13 03:07:00 Harrison, Premal G Uni versity of [facility] POCT GLUCOSE (AUTOMATED) 2020-12-12 23:52:00 Harrison, Premal G Uni versity of [facility] POCT GLUCOSE (AUTOMATED) 2020-12-12 20:28:00 Harrison, Premal G Uni versity of [facility] POCT GLUCOSE (AUTOMATED) 2020-12-12 19:14:00 Harrison, Premal G Uni versity of [facility] POCT GLUCOSE (AUTOMATED) 2020-12-12 14:33:00 Harrison, Premal G Uni versity of [facility] MAGNESIUM 2020-12-12 08:58:00 Paul Bean [facility] BASIC METABOLIC PANEL 2020-12-12 08:58:00 Paul Bean [facility] (NA, K, CL, CO2, GLUCOSE, [facility] BUN, CREATININE, CA) CBC WITH DIFF 2020-12-12 08:58:00 Paul Bean [facility] US ABDOMEN LIMITED 2020-12-12 06:32:26 Paul [facility] POCT GLUCOSE (AUTOMATED) 2020-12-12 03:40:00 Harrison, Premal G Uni versity of [facility] POCT GLUCOSE (AUTOMATED) 2020-12-12 00:06:00 Harrison, Premal G Uni versity of [facility] XR HIPS 3 VW LEFT 2020-12-11 20:20:00 Paul Bean Sivakumar [facility] HB ECG ROUTINE & RHYTHM 2020-12-11 20:04:06 Demetrius [facility] STRIP [facility] VITAMIN B6, PLASMA 2020-12-11 19:17:00 [facility] POCT GLUCOSE (AUTOMATED) 2020-12-11 19:06:00 Vika Harrison [facility] CREATINE KINASE 2020-12-11 18:22:00 Parvez [facility] VITAMIN B12, LEVEL 2020-12-11 18:22:00 Vikas [facility] FOLATE 2020-12-11 18:22:00 [facility] THYROID STIMULATING 2020-12-11 18:22:00 Demetrius [facility] HORMONE [facility] PROCALCITONIN 2020-12-11 18:22:00 Vikas [facility] VITAMIN B1 (THIAMINE), 2020-12-11 18:22:[facility] CT HEAD WO CONTRAST 2020-12-11 14:07:[address] [facility] URINALYSIS 2020-12-11 13:44:00 Singer [facility] URINE CULTURE 2020-12-11 13:44:00 Singer [facility] COVID-19 (ID NOW RAPID 2020-12-11 12:31:00 Paco Lacey [facility] TESTING) Medical Branch LAB ONLY COVID 2020-12-11 12:31:00 Singer [facility] INTERPRETATION [facility] XR CHEST 1 VW 2020-12-11 12:07:24 Singer [facility] BLOOD CULTURE SCREEN 2020-12-11 12:02:00 Paco Lacey [facility] MAGNESIUM 2020-12-11 12:02:00 Vikas [facility] FERRITIN SERUM 2020-12-11 12:02:00 Paul Bean [facility] Kaley [facility] COMP. METABOLIC PANEL 2020-12-11 12:02:00 Singer [facility] ([id number]) [facility] CBC WITH DIFF 2020-12-11 12:02:00 Singer [facility] LACTIC ACID WHOLE BLOOD 2020-12-11 12:02:00 Singer [facility] BLOOD CULTURE SCREEN 2020-12-11 11:42:00 Singer Paco [facility] EMERGENCY SERVICES 2020-12-11 06:01:00 Doctor Unassigned, [facility] AGREEMENTS AND [facility] [place] AUTHORIZATIONS HOSPITAL ADMISSION 2020-12-11 06:01:00 Doctor Unaowen, [facility] Name [facility] [place] HOME HEALTH - OTHER 2020-11-11 06:01:00 Doctor Tabitha [facility] Name [facility] [place] HOME HEALTH - OTHER 2020-10-30 06:01:00 Doctor Unaowen [facility] Name Medical [place] EXTERNAL PROVIDER RECORDS 2020-09-01 06:01:00 Doctor Tabitha, [facility] Name [facility] POCT GLUCOSE (AUTOMATED) 2020-08-23 18:09:00 Kelly [facility] POCT GLUCOSE (AUTOMATED) 2020-08-23 14:14:00 Kelly [facility] MAGNESIUM 2020-08-23 11:18:00 Ramya [facility] BASIC METABOLIC PANEL 2020-08-23 11:18:00 Jefferson [facility] (NA, K, CL, CO2, GLUCOSE, Medica l Branch BUN, CREATININE, CA) CBC WITH DIFF 2020-08-23 11:18:00 Jefferson [facility] POCT GLUCOSE (AUTOMATED) 2020-08-23 10:21:00 Kelly [facility] POCT GLUCOSE (AUTOMATED) 2020-08-23 05:55:00 Kelly [facility] POCT GLUCOSE (AUTOMATED) 2020-08-23 03:00:00 Stefania [facility] PO[facility]SE (AUTOMATED) 2020-08-22 23:38:00 Bety Washingtonmarie Elias versity of [facility] POCT GLUCOSE (AUTOMATED) 2020-08-22 19:04:00 Bety Washingtonmarie [facility] POCT GLUCOSE (AUTOMATED) 2020-08-22 13:49:00 Kelly Washington Jada versity [facility] MAGNESIUM 2020-08-22 10:10:00 [facility] 2020-08-22 10:10:00 Aguila Melchor [facility] ([id number]) (ALB,T.PRO,BILI Medical Branch T,BU/BC,ALT,AST,ALK PHOS) BASIC METABOLIC PANEL 2020-08-22 10:10:00 [facility] (NA, K, CL, CO2, GLUCOSE, Medica l Branch BUN, CREATININE, CA) LIPID PANEL ([id number])(TOTAL 2020-08-22 10:10:00 Jefferson, [facility] CHOLESTEROL, Medical [place] TRIGLYCERIDES, HDL) CBC WITH DIFF 2020-08-22 10:10:00 [facility] POCT GLUCOSE (AUTOMATED) 2020-08-22 10:10:00 Bety Washingtonmarie Elias [facility] POCT GLUCOSE (AUTOMATED) 2020-08-22 07:13:00 Kelly Washington Jada versity [facility] POCT GLUCOSE (AUTOMATED) 2020-08-22 02:24:00 Bety Washingtonmarie Elias versity [facility] POCT GLUCOSE (AUTOMATED) 2020-08-21 23:40:00 Kelly Washington Jada versity of [facility] POCT GLUCOSE (AUTOMATED) 2020-08-21 18:10:00 Kelly Washington Jada versity [facility] POCT GLUCOSE (AUTOMATED) 2020-08-21 13:39:00 Kelly Washington Jada versity [facility] ETHANOL 2020-08-21 12:35:00 [facility] 2020-08-21 12:35:00 Stefania [facility] GALV ONLY - SYPHILIS 2020-08-21 12:35:00 Stefania [facility] IGG/IGM [facility] LACTATE DEHYDROGENASE 2020-08-21 10:09:00 Ramya, [facility] GALV/CLC ONLY - URINE 2020-08-21 10:09:00 Richie [facility] DRUG (IMMUNOASSAY) - 4 ER Medica l Branch PANEL URINALYSIS 2020-08-21 10:09:00 Ramya, [facility] URINE CULTURE 2020-08-21 10:09:00 Ramya, [facility] PROCALCITONIN 2020-08-21 10:09:00 [place], [facility] POCT GLUCOSE (AUTOMATED) 2020-08-21 09:41:00 Stefania Kelly [facility] PROTHROMBIN TIME / INR 2020-08-21 08:32:00 Jefferson, [facility] ACTIVATED PARTIAL 2020-08-21 08:32:00 Jefferson, [facility] C-REACTIVE PROTEIN 2020-08-21 08:31:00 Ramya, [facility] HEPATIC FUNCTION PANEL 2020-08-21 08:31:00 Jefferson, [facility] ([id number]) (ALB,T.PRO,BILI Medical Branch T,BU/BC,ALT,AST,ALK PHOS) BASIC METABOLIC PANEL 2020-08-21 08:31:00 Jefferson, [facility] (NA, K, CL, CO2, GLUCOSE, [facility] BUN, CREATININE, CA) SEDIMENTATION RATE 2020-08-21 08:31:00 Jefferson, [facility] CBC WITH DIFF 2020-08-21 08:31:00 Jefferson, [facility] GLYCOSYLATED HEMOGLOBIN 2020-08-21 08:31:00 Jefferson, [facility] (A1C) Medical Branch HIV 1/2 AG-AB WITH REFLEX 2020-08-21 08:31:00 Kelly [place] [facility] [place] [facility] COVID-19 (ID NOW RAPID 2020-08-21 08:20:[address] TEST[facility]) Medical Branch LAB ONLY COVID 2020-08-21 08:20:00 [facility] [place] INTERPRETATION [facility] Branch Encounters Start End Encounter Admission Attending Care Care Encounter Source Date/Time Date/Time Type Type Clinicians Facility Department ID 2020-08-21 Inpatient U STEFANIA [facility] [id number] Univers 01:07:[address] [facility] 2021-08-22 2021-08-22 Emergency [id number] Univers 06:21:00 08:02:[address] [facility] 2021-08-22 2021-08-22 Emergency [facility] [id number] Univers 06:21:00 08:02:00 Sweetie LOTT [id number] i ty of [place] [id number] [facility] 084 Branch 2021-08-09 2021-08-09 Outpatient J[facility]ELYN [facility]ES [facility] [id number] [facility] 10:27:03 10:27:03 ADRIANA lopez of Medicin e 2020-12-28 2020-12-28 Telephone [facility] [id number] 00:00:00 00:00:00 Calvin H PRIMARY [id number] CARE 4.2.7.2.686 PAVILLION [id number] 220 2020-12-28 2020-12-28 Telephone [facility] 1.2.840.114 [id number] Univers 00:00:00 00:00:00 Calvin H PRIMARY [id number] it y of [place].2.[place] [id number] Sd dical 220 Branch 2020-12-19 2020-12-19 Transition Tuan Peters 1.2.840.114 [id number] 00:00:00 00:00:00 of Care Ruchi Braswell [id number] [place] 4.2.7.2.686 [id number] 403 2020-12-19 2020-12-19 Transition Tuan Peters 1.2.840.114 [id number] Univers 00:00:00 00:00:00 of Care Ruchi Braswell [id number] it [place] of [place]2.[place] [id number] [facility] 403 Branch 2020-12-11 2020-12-17 [facility] Paco Lacey 1.2.840.1 [id number] 05:11:00 16:00:00 Encounter Vika Harrison [place] [id number] [facility] [place] [facility] [id number] [id number] [facility] 2020-12-11 2020-12-17 [facility] Paco Lacey 1.2.840.1 [id number] [facility] 05:11:00 16:00:00 Encounter Vika Harrison [place] [id number] ity [facility] 4.2.7.[address] [place] [address] [id number] [facility] 096 Branch 2020-12-11 2020-12-17 Inpatient X [facility] [id number] Univers 05:11:00 16:00:[address] [facility] 2020-11-16 2020-11-16 Emergency X [facility] ERT [id number] [facility] 09:31:00 09:31:[address] [facility] 2020-11-11 2020-11-11 Orders Doctor CUI 1.2.840.114 [id number] 00:00:00 00:00:00 Only UnassignedMONIQUE [id number] [facility] 4.2.7.2.686 [id number] 2020-11-11 2020-11-11 Orders Doctor CUI 1.2.840.114 [id number] [facility] 00:00:00 00:00:00 Only Unassigned, MONIQUE [id number] ity of [facility] 4.2.7.2.686 Jeff as [id number] [address] 2020-11-07 2020-11-07 [facility]phone [facility] [id number] 00:00:00 00:00:00 Angi Lott [id number] [employer] 4.2.7.2.686 Professio [id number] [address] 2020-11-07 2020-11-07 Telephone [facility] [id number] [facility] 00:00:00 00:00:00 Angi Lott [id number] ity of [employer] [place].7.2.[place] Professio [id number] Sd dic[address] 2020-10-30 2020-10-30 Orders Doctor BASILIA 1.2.840.114 [id number] 00:00:00 00:00:00 Only Unassigned, MONIQUE 350.1.13.10 [facility] 4.2.7.2.686 [id number] [facility] 2020-10-30 2020-10-30 Orders Doctor BASILIA 1.2.840.114 [id number] [facility] 00:00:00 00:00:00 Only Unassigned, MONIQUE 350.1.13.10 ity of [facility] 4.2.7.2.686 Jeff as [id number] [address] 2020-09-26 2020-09-26 Telephone Eliot [facility] 1.2.840.114 [id number] 00:00:00 00:00:00 [facility] [id number] CLINICS 4.2.7.2.686 [id number] [facility] 2020-09-26 2020-09-26 Telephone Eliot [facility] 1.2.840.114 [id number] [facility] 00:00:00 00:00:00 [facility] [id number] i ty of CLINICS [place]7.2.[place] [id number] [address] 2020-09-01 2020-09-01 Orders Doctor BASILIA 1.2.840.114 [id number] 00:00:00 00:00:00 Only Unassigned, MONIQUE 350.1.13.10 [facility] 4.2.7.2.686 [id number] 2020-09-01 2020-09-01 Orders Doctor BASILIA 1.2.840.114 [id number] Univers 00:00:00 00:00:00 Only Unassigned, MONIQUE 350.1.13.10 ity of [place] [facility] 4.2.7.2.686 Jeff as [id number] [facility] 009 Branch 2020-08-25 2020-08-25 Transition Tuan Peters 1.2.840.114 [id number] 00:00:00 00:00:00 of Care Ruchi Braswell 350.1.13.10 [place] 4.2.7.2.686 [id number] 403 2020-08-25 2020-08-25 Transition Tuan Peters 1.2.840.114 [id number] Univers 00:00:00 00:00:00 of Care Ruchi Braswell 350.1.13.10 it y of [place]2.[place] [id number] [facility] 403 [place] 2020-08-21 2020-08-23 [facility] [place] Ayleen 1.2.840.114 [id number] 01:07:00 18:35:00 Encounter Kelly Monique 350.1.13.10 [facility] 4.2.7.2.686 [id number] [facility] 2020-08-21 2020-08-23 [facility] 1. 2.840.114 [id number] [facility] 01:07:00 18:35:00 Encounter Mukul Gallardo 350.1.13. 10 ity of [facility] 4.2.7.2.686 Jeff as [phone] [address] Results Test Description Test Time Test Comments Results Result Comments Source POCT GLUCOSE (AUTOMATED) 2020-12-17 15:43:35 Test Item Value Reference Range Interpretation Comme nts POCT GLU (test code = 8057793589) 129 mg/dL 70-110 H Lab Interpretation (test code = 94652-1) Abnormal [facility] (NA, K, CL, CO2, GLUCOSE, BUN, CREATININE, CA)2020-12-17 11:45:07 Test Item Value Reference Range Interpretation Comments NA (test code = 137 mmol/L 135-145 2576934376) K (test code = 3.5 mmol/L 3.5-5.0 9020982835) CL (test code = 103 mmol/L 98-108 4589998376) CO2 TOTAL (test code = 26 mmol/L 23-31 0872098254) AGAP (test code = 2-16 5326908092) BUN (test code = 11 mg/dL 7-23 6828080884) GLUCOSE (test code = 175 mg/dL 70-110 H 9287982524) CREATININE (test code = 0.62 mg/dL 0.60-1.25 2218289416) CALCIUM (test code = 9.0 mg/dL 8.6-10.6 9414262316) eGFR Calculation mL/min/1.73m2 (Non-) (test code = 3499285746) eGFR Calculation mL/min/1.73m2 () (test code = 6777604325) JAMES (test code = JAMES) Association of [...] tests). Lab Interpretation Abnormal (test code = 72573-7) [facility] WITH [id number] 11:07:27 Test Item Value Reference Range Interpretation [...] RDW-SD (test code = 45.2 fL 38.5-51.6 24346-3) RDW-CV (test code = 16.9 % 12.1-15.4 H 788-0) PLT (test code = See_Comment H [Automated 777-3) message] The sy stem which generated this result transmitted reference range : 150 - 328 10*3/ ?L. The reference r torito was not used to interpret this result as normal/abnormal . MPV (test code = 8.1 fL 9.8-13.0 L 63388-4) NRBC/100 WBC (test See_Comment [Automat ed code = 2612428747) message] The system which generated this result transmitted reference range : 0.0 - 10.0 /100 WBCs. The refer ence range was not u sed to interpret th is result as normal/abnormal . NRBC x10^3 (test code <0.01 See_Comment [Auto mated = 0573454403) message] The s ystem which generated this result transmitted reference range : 10*3/?L. The reference range was not used to interpret this result as normal/abnormal . GRAN MAT (NEUT) % 72.8 % (test code = 770-8) IMM GRAN % (test code 0.60 % = 8524634277) LYMPH % (test code = 18.4 % 736-9) MONO % (test code = 5.7 % 5905-5) EOS % (test code = 1.8 % 713-8) BASO % (test code = 0.7 % 706-2) GRAN MAT x10^3(ANC) 8.23 10*3/uL 1.99-6.95 H (test code = 0246005739) IMM GRAN x10^3 (test 0.07 10*3/uL 0.00-0.06 H code = 1866421417) LYMPH x10^3 (test code 2.08 10*3/uL 1.09-3.23 = 731-0) MONO x10^3 (test code 0.65 10*3/uL 0.36-1.02 = 742-7) EOS x10^3 (test code = 0.20 10*3/uL 0.06-0.53 711-2) BASO x10^3 (test code 0.08 10*3/uL 0.01-0.09 = 704-7) Lab Interpretation Abnormal (test code = 41803-2) [facility])2020-12-17 06:03:38 Test Item Value Reference Range Interpretation Comments POCT GLU (test code = 6794077765) 75 mg/dL 70-110 Lab Interpretation (test code = Normal 76741-1) [facility], [id number] 00:01:00 Test Item Value Reference Range Interpretation Comments VIT B6 (test code = 13.1 nmol/L 20.0-125.0 L INTERPRE TIVE 07675-0) INFORMATION: Vi tamin B6 (Pyridoxal 5-Phosphate) Pyridoxal [...] intended for cl inical purposes.Perfor med By: [employer] [place] [id number] Director: Namrata Klein MD Lab Interpretation Abnormal (test code = 90194-1) [facility]aleXR TIBIA FIBULA 2 VW [id number] 23:57:09 Tricompartmental knee joint osteoarthrosis.XR TIBIA FIBULA [...] Interpretation Comments POCT GLU (test code = 8281150603) 114 mg/dL 70-110 H Lab Interpretation (test code = Abnormal 22360-3) [facility] GLUCOSE (AUTOMATED)2020-12-16 20:12:00 Test Item Value Reference Range Interpretation Comments POCT GLU (test code = 0633288033) 105 mg/dL 70-110 Lab Interpretation (test code = Normal 30184-0) [facility] GLUCOSE (AUTOMATED)2020-12-16 14:44:00 Test Item Value Reference Range Interpretation Comments POCT GLU (test code = 6463109770) 153 mg/dL 70-110 H Lab Interpretation (test code = Abnormal 02090-5) [facility] METABOLIC PANEL (NA, K, CL, CO2, GLUCOSE, BUN, CREATININE, CA)2020-12-16 14:23:00 Test Item Value Reference Range Interpretation Comments NA (test code = 138 mmol/L 135-145 5838292454) K (test code = 3.4 mmol/L 3.5-5.0 L 6998304098) CL (test code = 100 mmol/L 98-108 4081022942) CO2 TOTAL (test code = 31 mmol/L 23-31 9815921453) AGAP (test code = 2-16 6309272175) BUN (test code = 11 mg/dL 7-23 4854107799) GLUCOSE (test code = 162 mg/dL 70-110 H 8411178206) CREATININE (test code = 0.64 mg/dL 0.60-1.25 0029471664) CALCIUM (test code = 8.9 mg/dL 8.6-10.6 8412027239) eGFR Calculation mL/min/1.73m2 (Non-) (test code = 3071498541) eGFR Calculation mL/min/1.73m2 () (test code = 8674699623) JAMES (test code = JAMES) Association of [...] tests). Lab Interpretation Abnormal (test code = 21561-5) [facility] WITH [id number] 14:05:00 Test Item Value Reference Range Interpretation [...] RDW-SD (test code = 45.4 fL 38.5-51.6 52672-8) RDW-CV (test code = 17.0 % 12.1-15.4 H 788-0) PLT (test code = See_Comment H [Automated 777-3) message] The sy stem which generated this result transmitted reference range : 150 - 328 10*3/ ?L. The reference r torito was not used to interpret this result as normal/abnormal . MPV (test code = 8.0 fL 9.8-13.0 L 48616-2) NRBC/100 WBC (test See_Comment [Automat ed code = 0471506900) message] The system which generated this result transmitted reference range : 0.0 - 10.0 /100 WBCs. The refer ence range was not u sed to interpret th is result as normal/abnormal . NRBC x10^3 (test code <0.01 See_Comment [Auto mated = 6846629293) message] The s ystem which generated this result transmitted reference range : 10*3/?L. The reference range was not used to interpret this result as normal/abnormal . GRAN MAT (NEUT) % 70.0 % (test code = 770-8) IMM GRAN % (test code 0.70 % = 4780693273) LYMPH % (test code = 20.5 % 736-9) MONO % (test code = 7.1 % 5905-5) EOS % (test code = 1.0 % 713-8) BASO % (test code = 0.7 % 706-2) GRAN MAT x10^3(ANC) 9.44 10*3/uL 1.99-6.95 H (test code = 9867282358) IMM GRAN x10^3 (test 0.09 10*3/uL 0.00-0.06 H code = 7810303396) LYMPH x10^3 (test code 2.76 10*3/uL 1.09-3.23 = 731-0) MONO x10^3 (test code 0.96 10*3/uL 0.36-1.02 = 742-7) EOS x10^3 (test code = 0.13 10*3/uL 0.06-0.53 711-2) BASO x10^3 (test code 0.10 10*3/uL 0.01-0.09 H = 704-7) Lab Interpretation Abnormal (test code = 01964-8) [facility]aleBlood Culture - Peripheral # [id number] 13:01:00 Test Item Value Reference Range Interpretation Comments Blood Culture-Aerobic No organisms No growth Previo us (test code = 26712-6) isolated prelim inary verified result was Culture In Progress on 12/11/2020 at 100 1 CSTPrevious preliminary verified result was No growth a t 24 hours on 12/12/2020 at 070 1 CSTPrevious preliminary verified result was No growth a t 48 hours on 12/13/2020 at 070 1 CSTPrevious preliminary verified result was No growth a t 72 hours on 12/14/2020 at 070 1 [employer] Blood No organisms No growth Previous Culture-Anaerobic isolated preliminar y (test code = 58192-8) verifi ed result was Culture In Progress on 12/11/2020 at 100 1 CSTPrevious preliminary verified result was No growth a t 24 hours on 12/12/2020 at 070 1 CSTPrevious preliminary verified result was No growth a t 48 hours on 12/13/2020 at 070 1 CSTPrevious preliminary verified result was No growth a t 72 hours on 12/14/2020 at 070 1 [employer]ICULTURE TE[employer]ER Lab Interpretation Normal (test code = 11040-9) [facility] Culture - Peripheral # [id number] 13:01:00 Test Item Value Reference Range Interpretation Comments Blood Culture-Aerobic No organisms No growth Previo us (test code = 25306-9) isolated prelim inary verified result was Culture In Progress on 12/11/2020 at 100 1 CSTPrevious preliminary verified result was No growth a t 24 hours on 12/12/2020 at 070 1 CSTPrevious preliminary verified result was No growth a t 48 hours on 12/13/2020 at 070 1 CSTPrevious preliminary verified result was No growth a t 72 hours on 12/14/2020 at 070 1 V[employer]IC[employer] TE[employer]ER Blood No organisms No growth Previous Culture-Anaerobic isolated preliminar y (test code = 52272-9) verifi ed result was Culture In Progress on 12/11/2020 at 100 1 CSTPrevious preliminary verified result was No growth a t 24 hours on 12/12/2020 at 070 1 CSTPrevious preliminary verified result was No growth a t 48 hours on 12/13/2020 at 070 1 CSTPrevious preliminary verified result was No growth a t 72 hours on 12/14/2020 at 070 1 V[employer]ICULT[employer] TE[employer]ER Lab Interpretation Normal (test code = 28519-4) [facility] GLUCOSE (AUTOMATED)2020-12-16 04:01:00 Test Item Value Reference Range Interpretation Comments POCT GLU (test code = 3510716065) 156 mg/dL 70-110 H Lab Interpretation (test code = Abnormal 71550-8) [facility])2020-12-16 00:24:00 Test Item Value Reference Range Interpretation Comments POCT GLU (test code = 4617343709) 115 mg/dL 70-110 H Lab Interpretation (test code = Abnormal 73177-2) [facility] CHEST PULMONARY [id number] 23:34:55No pulmonary emboli. No interval change in [...] of intra and extrahepatic biliary ductal dilatation.[facility] GLUCOSE (AUTOMATED)2020-12-15 19:28:00 Test Item Value Reference Range Interpretation Comments POCT GLU (test code = 9894252409) 140 mg/dL 70-110 H Lab Interpretation (test code = Abnormal 09690-5) [facility]2021-03-05 15:26:00 Test Item Value Reference Range Interpretation Comments MAGNESIUM (test code = 5593928544) 2.2 mg/dL 1.7-2.4 Lab Interpretation (test code = Normal 03260-5) [facility] GLUCOSE (AUTOMATED)2020-12-15 15:15:00 Test Item Value Reference Range Interpretation Comments POCT GLU (test code = 0502814425) 181 mg/dL 70-110 H Lab Interpretation (test code = Abnormal 21935-1) [facility] METABOLIC PANEL (NA, K, CL, CO2, GLUCOSE, BUN, CREATININE, CA)2020-12-15 13:07:00 Test Item Value Reference Range Interpretation Comments NA (test code = 136 mmol/L 135-145 3426027457) K (test code = 3.6 mmol/L 3.5-5.0 5212085863) CL (test code = 96 mmol/L 98-108 L 5907435379) CO2 TOTAL (test code = 29 mmol/L 23-31 9986407683) AGAP (test code = 2-16 7866134199) BUN (test code = 12 mg/dL 7-23 3267577951) GLUCOSE (test code = 183 mg/dL 70-110 H 3426312239) CREATININE (test code = 0.70 mg/dL 0.60-1.25 6471092905) CALCIUM (test code = 9.2 mg/dL 8.6-10.6 4127813976) eGFR Calculation mL/min/1.73m2 (Non-) (test code = 0123853730) eGFR Calculation mL/min/1.73m2 () (test code = 4753302547) JAMES (test code = JAMES) Association of [...] tests). Lab Interpretation Abnormal (test code = 76354-9) [facility] WITH [id number] 12:32:00 Test Item Value Reference Range Interpretation Comments WBC (test code = See_Comment H [Automated 5090-2) message] The system which generated this result transmit ronan reference range : 4.20 - 10.70 10*3/?L. The reference range was not used to interpret this result as normal/abnormal . RBC (test code = See_Comment H [Automated 869-8) message] The system which generated this result [...] RDW-SD (test code = 44.4 fL 38.5-51.6 43777-1) RDW-CV (test code = 17.7 % 12.1-15.4 H 788-0) PLT (test code = See_Comment H [Automated 777-3) message] The system which generated this result transmit ronan reference range : 150 - 328 10*3/ ?L. The reference range was not u sed to interpret th is result as normal/abnormal . MPV (test code = 8.1 fL 9.8-13.0 L 14260-0) NRBC/100 WBC (test See_Comment [Automat ed code = 5043826622) message] The system which generated this result transmit ronan reference range : 0.0 - 10.0 /100 WBCs. The reference range was not used to interpret this result as normal/abnormal . NRBC x10^3 (test code <0.01 See_Comment [Auto mated = 5546607997) message] The system which generated this result transmit ronan reference range : 10*3/?L. The reference range was not used to interpret this result as normal/abnormal . GRAN MAT (NEUT) % 74.5 % (test code = 770-8) IMM GRAN % (test code 0.70 % = 9661058822) LYMPH % (test code = 17.4 % 736-9) MONO % (test code = 6.8 % 5905-5) EOS % (test code = 0.2 % 713-8) BASO % (test code = 0.4 % 706-2) GRAN MAT x10^3(ANC) 11.99 10*3/uL 1.99-6.95 H (test code = 2484977030) IMM GRAN x10^3 (test 0.11 10*3/uL 0.00-0.06 H code = 1534470246) LYMPH x10^3 (test code 2.80 10*3/uL 1.09-3.23 = 731-0) MONO x10^3 (test code 1.10 10*3/uL 0.36-1.02 H = 742-7) EOS x10^3 (test code = 0.03 10*3/uL 0.06-0.53 L 711-2) BASO x10^3 (test code 0.06 10*3/uL 0.01-0.09 = 704-7) Lab Interpretation Abnormal (test code = 13127-6) [facility] GLUCOSE (AUTOMATED)2020-12-15 04:16:00 Test Item Value Reference Range Interpretation Comments POCT GLU (test code = 5612951344) 200 mg/dL 70-110 H Lab Interpretation (test code = Abnormal 70715-2) [facility]ale[facility]ITAMIN B1 (THIAMINE), WHOLE [id number] 00:30:00 Test Item Value Reference Range Interpretation Comments Vitamin B1, Whole 136 nmol/L 70-180 INTERPRETI VE INFORMATION: Blood (test code = Vitamin B 1, Whole Blood 82512-5) This assay júnior ures the concentration o [...] clinical purposes.Perfor med By: [employer] [address] [place], [place] [address]X aboratory Director: Namrata Klein MD [facility] GLUCOSE (AUTOMATED)2020-12-14 23:35:00 Test Item Value Reference Range Interpretation Comments POCT GLU (test code = 7970997724) 151 mg/dL 70-110 H Lab Interpretation (test code = Abnormal 13922-0) [facility] GLUCOSE (AUTOMATED)2020-12-14 19:19:00 Test Item Value Reference Range Interpretation Comments POCT GLU (test code = 8952676986) 193 mg/dL 70-110 H Lab Interpretation (test code = Abnormal 87498-2) [facility] GLUCOSE (AUTOMATED)2020-12-14 15:22:00 Test Item Value Reference Range Interpretation Comments POCT GLU (test code = 5391561370) 221 mg/dL 70-110 H Lab Interpretation (test code = Abnormal 68705-2) [facility] GLUCOSE (AUTOMATED)2020-12-14 02:37:00 Test Item Value Reference Range Interpretation Comments POCT GLU (test code = 1223189780) 210 mg/dL 70-110 H Lab Interpretation (test code = Abnormal 05918-4) [facility] GLUCOSE (AUTOMATED)2020-12-13 23:33:00 Test Item Value Reference Range Interpretation Comments POCT GLU (test code = 5432266250) 182 mg/dL 70-110 H Lab Interpretation (test code = Abnormal 28870-8) [facility] GLUCOSE (AUTOMATED)2020-12-13 18:09:00 Test Item Value Reference Range Interpretation Comments POCT GLU (test code = 1242609119) 150 mg/dL 70-110 H Lab Interpretation (test code = Abnormal 88813-9) [facility] METABOLIC PANEL (NA, K, CL, CO2, GLUCOSE, BUN, CREATININE, CA)2020-12-13 16:27:00 Test Item Value Reference Range Interpretation Comments NA (test code = 136 mmol/L 135-145 5576584154) K (test code = 3.7 mmol/L 3.5-5.0 9609944100) CL (test code = 96 mmol/L 98-108 L 0071727718) CO2 TOTAL (test code = 29 mmol/L 23-31 9818398037) AGAP (test code = 2-16 5198387269) BUN (test code = 6 mg/dL 7-23 L 1031929708) GLUCOSE (test code = 212 mg/dL 70-110 H 0196579012) CREATININE (test code = 0.61 mg/dL 0.60-1.25 9929447945) CALCIUM (test code = 9.5 mg/dL 8.6-10.6 7084497017) eGFR Calculation mL/min/1.73m2 (Non-) (test code = 0961861130) eGFR Calculation mL/min/1.73m2 () (test code = 2091678725) JAMES (test code = JAMES) Association of [...] tests). Lab Interpretation Abnormal (test code = 72524-5) [facility] WITH [id number] 16:10:00 Test Item Value Reference Range Interpretation Comments WBC (test code = See_Comment H [Automated 0790-2) message] The sy stem which generated this result transmitted reference range : 4.20 - 10.70 10*3/?L. The reference range was not used to interpret this result as normal/abnormal . RBC (test code = See_Comment H [Automated 599-8) message] The sy stem which [...] RDW-SD (test code = 43.3 fL 38.5-51.6 40560-2) RDW-CV (test code = 16.2 % 12.1-15.4 H 788-0) PLT (test code = See_Comment H [Automated 777-3) message] The sy stem which generated this result transmitted reference range : 150 - 328 10*3/ ?L. The reference r torito was not used to interpret this result as normal/abnormal . MPV (test code = 8.2 fL 9.8-13.0 L 67658-8) NRBC/100 WBC (test See_Comment [Automat ed code = 5912083845) message] The system which generated this result transmitted reference range : 0.0 - 10.0 /100 WBCs. The refer ence range was not u sed to interpret th is result as normal/abnormal . NRBC x10^3 (test code <0.01 See_Comment [Auto mated = 3891509452) message] The s ystem which generated this result transmitted reference range : 10*3/?L. The reference range was not used to interpret this result as normal/abnormal . GRAN MAT (NEUT) % 86.2 % (test code = 770-8) IMM GRAN % (test code 0.70 % = 6942189489) LYMPH % (test code = 10.2 % 736-9) MONO % (test code = 2.5 % 5905-5) EOS % (test code = 0.1 % 713-8) BASO % (test code = 0.3 % 706-2) GRAN MAT x10^3(ANC) 9.61 10*3/uL 1.99-6.95 H (test code = 1525368416) IMM GRAN x10^3 (test 0.08 10*3/uL 0.00-0.06 H code = 3993232309) LYMPH x10^3 (test code 1.14 10*3/uL 1.09-3.23 = 731-0) MONO x10^3 (test code 0.28 10*3/uL 0.36-1.02 L = 742-7) EOS x10^3 (test code = <0.03 0.06-0.53 L 711-2) BASO x10^3 (test code 0.03 10*3/uL 0.01-0.09 = 704-7) Lab Interpretation Abnormal (test code = 43523-1) [facility]2020-12-13 14:16:00 Test Item Value Reference Range Interpretation Comments POCT GLU (test code = 4517420786) 236 mg/dL 70-110 H Lab Interpretation (test code = Abnormal 22278-1) [facility]aleLAB ONLY COVID [id number] 04:58:00COVID DMT InterpretationInterpretation/Recommendations: Molecular NAAT Tests for [...] [facility] SERVICESCOVID NwuvhvgUHPQ-DkA-7 Rapid ID NOW (no units) ? ? Date ? Value ? 12/11/2020 ? Not Detected ? ? ? 11/16/2020 ? Not Detected ? ? ? 08/21/2020 ? Not Detected ? [facility]Un[facility] 2020-12-13 03:11:00 Test Item Value Reference Range Interpretation Comments POCT GLU (test code = 4418272840) 171 mg/dL 70-110 H Lab Interpretation (test code = Abnormal 09428-7) [facility] GLUCOSE (AUTOMATED)2020-12-13 00:00:00 Test Item Value Reference Range Interpretation Comments POCT GLU (test code = 9531737654) 118 mg/dL 70-110 H Lab Interpretation (test code = Abnormal 69908-3) [facility] GLUCOSE (AUTOMATED)2020-12-12 20:29:00 Test Item Value Reference Range Interpretation Comments POCT GLU (test code = 1740813010) 173 mg/dL 70-110 H Lab Interpretation (test code = Abnormal 93299-9) [facility]aleUS ABDOMEN [id number] 19:56:17 1. ?Hepatic steatosis. However, limited evaluation [...] main portal veinwasevaluated with color Doppler imaging. Spinner Operator images were obtainedfor the record. COMPARISON: [...] normal where visualized. SPLEEN:No images were obtained. [facility], Radiant Results Inft User - 12/12/2020 1:57 PM CSTEXAM: US ABDOMEN LIMITEDHISTORY: 70 years-old male with RUQ ultrasound to assess for common bileduct dilation .TECHNIQUE: Limited abdominal ultrasound focused on the liver, biliarysystem, pancreas, and spleen was performed. The main portal vein wasevaluated with color Doppler imaging. Spinner Operator images wereobtainedfor the record.COMPARISON: Ultrasound abdomen [...] abovereport.[facility]2020-12-12 19:24:00 Test Item Value Reference Range Interpretation Comments POCT GLU (test code = 0363401790) 230 mg/dL 70-110 H Lab Interpretation (test code = Abnormal 11465-9) [facility]aleXR CHEST 1 [id number] 15:16:46 Low lung volumes with mild perihilar [...] or pneumothorax. Preliminary Report Dictated by Resident: Garbielle Miller MD., have reviewed this study and agree with theabove report.[facility]2020-12-12 14:34:00 Test Item Value Reference Range Interpretation Comments POCT GLU (test code = 8493994868) 225 mg/dL 70-110 H Lab Interpretation (test code = Abnormal 34108-6) [facility]aleURINE [id number] 13:28:00 Test Item Value Reference Range Interpretation Comments URINE CULTURE (test < 10,000 CFU/mL mixed code = 630-4) aerobic organisms - suggests endogenous microbial contamination [facility]aleBasic Metabolic Panel (NA, K, CL, CO2, GLUCOSE, BUN, CREATININE, CA)2020-12-12 10:05:00 Test Item Value Reference Range Interpretation Comments NA (test code = 136 mmol/L 135-145 8571148269) K (test code = 3.5 mmol/L 3.5-5.0 7598925707) CL (test code = 100 mmol/L 98-108 1101732627) CO2 TOTAL (test code = 31 mmol/L 23-31 8076530137) AGAP (test code = 2-16 2717686185) BUN (test code = 7 mg/dL 7-23 4561349253) GLUCOSE (test code = 259 mg/dL 70-110 H 3073848267) CREATININE (test code = 0.63 mg/dL 0.60-1.25 8189077423) CALCIUM (test code = 8.5 mg/dL 8.6-10.6 L 5873776495) eGFR Calculation mL/min/1.73m2 (Non-) (test code = 3473376062) eGFR Calculation mL/min/1.73m2 () (test code = 6723087217) JAMES (test code = JAMES) Association of [...] tests). Lab Interpretation Abnormal (test code = 25407-6) [facility]valeMagnesium [id number] 10:05:00 Test Item Value Reference Range Interpretation Comments MAGNESIUM (test code = 4411144234) 1.9 mg/dL 1.7-2.4 Lab Interpretation (test code = Normal 19326-2) [facility] with [id number] 09:48:00 Test Item Value Reference Range Interpretation Comments WBC (test code = See_Comment [Automated 3127-2) message] The sy stem which generated this result transmitted reference range : 4.20 - 10.70 10*3/?L. The reference range was not used to interpret this result as normal/abnormal . RBC (test code = See_Comment [Automated 478-2) message] The sy stem which generated this [...] RDW-SD (test code = 46.0 fL 38.5-51.6 96889-3) RDW-CV (test code = 16.1 % 12.1-15.4 H 788-0) PLT (test code = See_Comment H [Automated 777-3) message] The sy stem which generated this result transmitted reference range : 150 - 328 10*3/ ?L. The reference r torito was not used to interpret this result as normal/abnormal . MPV (test code = 8.6 fL 9.8-13.0 L 89760-6) NRBC/100 WBC (test See_Comment [Automat ed code = 8954514420) message] The system which generated this result transmitted reference range : 0.0 - 10.0 /100 WBCs. The refer ence range was not u sed to interpret th is result as normal/abnormal . NRBC x10^3 (test code <0.01 See_Comment [Auto mated = 5064937062) message] The s ystem which generated this result transmitted reference range : 10*3/?L. The reference range was not used to interpret this result as normal/abnormal . GRAN MAT (NEUT) % 70.2 % (test code = 770-8) IMM GRAN % (test code 0.30 % = 6672474749) LYMPH % (test code = 18.8 % 736-9) MONO % (test code = 5.0 % 5905-5) EOS % (test code = 5.2 % 713-8) BASO % (test code = 0.5 % 706-2) GRAN MAT x10^3(ANC) 6.05 10*3/uL 1.99-6.95 (test code = 0686075860) IMM GRAN x10^3 (test 0.03 10*3/uL 0.00-0.06 code = 5673555202) LYMPH x10^3 (test code 1.62 10*3/uL 1.09-3.23 = 731-0) MONO x10^3 (test code 0.43 10*3/uL 0.36-1.02 = 742-7) EOS x10^3 (test code = 0.45 10*3/uL 0.06-0.53 711-2) BASO x10^3 (test code 0.04 10*3/uL 0.01-0.09 = 704-7) Lab Interpretation Abnormal (test code = 69660-2) [facility]AUTOMATED)2020-12-12 03:42:00 Test Item Value Reference Range Interpretation Comments POCT GLU (test code = 196 mg/dL 70-110 H Notifi ed Provider 8624139902) Lab Interpretation (test Abnormal code = 21408-5) [facility]aleFOLATE2021-03-02 02:24:00 Test Item Value Reference Range Interpretation Comments FOLATE SER (test code = 9810074661) 5.8 ng/mL 3.0-20.0 Lab Interpretation (test code = Normal 20938-9) [facility]aleVITAMIN B12, [id number] 00:55:00 Test Item Value Reference Range Interpretation Comments VIT B12 (test code = 844 pg/mL 240-930 0914830992) JAMES (test code = JAMES) Biotin has been reported to cause a positive bias, interpret results relative to patient's use of biotin. Lab Interpretation (test Normal code = 89674-7) [facility] GLUCOSE (AUTOMATED)2020-12-12 00:14:00 Test Item Value Reference Range Interpretation Comments POCT GLU (test code = 0052484324) 164 mg/dL 70-110 H Lab Interpretation (test code = Abnormal 53173-9) [facility]aleCREATINE [id number] 23:42:00 Test Item Value Reference Range Interpretation Comments CK (test code = 3532671255) <20 33-194 L Lab Interpretation (test code = Abnormal 91241-3) [facility]aleTHYROID STIMULATING [id number] 23:17:00 Test Item Value Reference Range Interpretation Comments TSH (test code = See_Comment Biotin has been 7049879450) reported to cau se a negative bias, interpret resul ts relative to johnny bills's use of biotin. [Automated mess age] The system [employer] generated this result transmitted ref erence range: 0.45 - 4 .70 mIU/L. The refe rence range was not u sed to interpret this result as normal/abnor mal. Lab Interpretation (test Normal code = 78964-5) [facility]aleXR HIPS 3 VW [id number] 21:41:53No appreciable fracture lines. RL: 6200 ICAL [...] No osseous erosions.IMPRESSIONNo appreciable fracture lines.RL: 6200 [facility] CenterPROCALCITONIN2021-03-01 20:00:00 Test Item Value Reference Range Interpretation Comments Procalcitonin (test 0.13 ng/mL <0.07 H code = 1057591916) JAMES (test code = JAMES) INTERPRETATION OF [...] lung abscess/empyema. For further information please refer to:[email or web address] Lab Interpretation Abnormal (test code = 47057-3) [facility]ATED)2020-12-11 19:07:00 Test Item Value Reference Range Interpretation Comments POCT GLU (test code = 7022906268) 274 mg/dL 70-110 H Lab Interpretation (test code = Abnormal 12533-7) [facility]aleMAGNESIUM2021-03-01 18:31:00 Test Item Value Reference Range Interpretation Comments MAGNESIUM (test code = 8551489220) 1.9 mg/dL 1.7-2.4 Lab Interpretation (test code = Normal 97868-4) [facility]valeFERRITIN [id number] 18:31:00 Test Item Value Reference Range Interpretation Comments FERRITIN (test code = 178.0 ng/mL 18.0-464.0 2134639139) JAMES (test code = JAMES) Biotin has been reported to cause a negative bias, interpret results relative to patient's use of biotin. Lab Interpretation (test Normal code = 25349-2) [facility] HEAD WO [id number] 14:36:47 No acute intracranial abnormality. Dilated ventricles out of proportion to the caliber of sulci with diffuseproportional enlargement of the subarachnoid spaces, nonspecific findingmay represent central predominant volume loss, however, normal pressurehydrocephalus can potentially have similar appearance in the appropriateclinical setting. Preliminary Report Dictated by Resident: Roxane iWlson I, Katelyn Martin MD., have reviewed this [...] abovereport.[facility]aleURINALYSIS2021-03-01 14:28:00 Test Item Value Reference Range Interpretation Comments APPEARANCE (test code = Clear Clear 2498987581) COLOR (test code = Yellow Yellow 7078600443) PH (test code = 4.8-8.0 0370701452) SP GRAVITY (test code = 1.003-1.030 2563671989) GLU U QUAL (test code = 500 mg/dL Normal A 1812495525) BLOOD (test code = Negative Negative 0063931533) KETONES (test code = 5 mg/dL Negative A 5520151269) PROTEIN (test code = Negative Negative 2887-8) UROBILIN (test code = Normal Normal 4262680125) BILIRUBIN (test code = Negative Negative 8345414510) NITRITE (test code = Negative Negative 6239845850) LEUK RYAN (test code = Negative Negative 8778234154) RBC/HPF (test code = See_Comment [Autom ated message] 5187074317) The system [employer] generated this result transmit ronan reference range : 0 - 3 HPF. The refe rence range was not u sed to interpret th is result as normal/abnormal . WBC/HPF (test code = See_Comment [Autom ated message] 0461470552) The system [employer] generated this result transmit ronan reference range : 0 - 5 HPF. The refe rence range was not u sed to interpret th is result as normal/abnormal . BACTERIA (test code = Negative Negative 3877183531) MUCOUS (test code = Slight Negative LPF A 4532385502) SQ EPITH (test code = HPF 8626897643) Lab Interpretation (test Abnormal code = 61550-5) [facility]aleCOVID-19 (ID NOW RAPID TESTING)2020-12-11 13:10:00 Test Item Value Reference Range Interpretation Comments SARS-CoV-2 Rapid ID NOW Not Detected Not Detected (test code = 29438-7) JAMES (test code = JAMES) ID NOW COVID-19 Assay is an isothermal nucleic acid amplification test intended for the qualitative detection of nucleic acid from SARS-CoV-2 viral RNA in nasopharyngeal (PHYSICIAN INTERNIST) specimens. It is used under Emergency Use [...] indicated. Lab Interpretation Normal (test code = 70235-2) [facility]. METABOLIC PANEL (28091)2020-12-11 12:29:00 Test Item Value Reference Range Interpretation Comments NA (test code = 136 mmol/L 135-145 1528500641) K (test code = 3.5 mmol/L 3.5-5.0 7617840592) CL (test code = 95 mmol/L 98-108 L 8621071025) CO2 TOTAL (test code = 35 mmol/L 23-31 H 4713059617) AGAP (test code = 2-16 4811600034) BUN (test code = 9 mg/dL 7-23 4153095679) GLUCOSE (test code = 329 mg/dL 70-110 H 8743011733) CREATININE (test code = 0.72 mg/dL 0.60-1.25 2294465527) TOTAL BILI (test code = 0.6 mg/dL 0.1-1.3 6833214978) CALCIUM (test code = 9.0 mg/dL 8.6-10.6 6689929572) T PROTEIN (test code = 6.8 g/dL 6.3-8.2 5771804792) ALBUMIN (test code = 3.8 g/dL 3.5-5.0 4829744627) ALK PHOS (test code = 288 U/L 34-122 H 6349278690) ALTv (test code = 46 U/L 5-50 1742-6) AST(SGOT) (test code = 38 U/L 13-40 2439210346) eGFR Calculation mL/min/1.73m2 (Non-) (test code = 5917136850) eGFR Calculation mL/min/1.73m2 () (test code = 3097383080) JAMES (test code = JAMES) Association of [...] tests). Lab Interpretation Abnormal (test code = 76597-1) [facility]aleLactic Acid Whole [id number] 12:23:00 Test Item Value Reference Range Interpretation Comments LACTIC ACID (test code = 2.09 mmol/L 0.50-2.20 0195447048) Lab Interpretation (test code = Normal 28032-6) [facility] WITH [id number] 12:17:00 Test Item Value Reference Range Interpretation Comments WBC (test code = See_Comment H [Automated 1990-2) message] The sy stem which generated this result transmitted reference range : 4.20 - 10.70 10*3/?L. The reference range was not used to interpret this result as normal/abnormal . RBC (test code = See_Comment [Automated 739-8) message] The sy stem which generated this [...] RDW-SD (test code = 44.9 fL 38.5-51.6 26541-7) RDW-CV (test code = 15.9 % 12.1-15.4 H 788-0) PLT (test code = See_Comment H [Automated 777-3) message] The sy stem which generated this result transmitted reference range : 150 - 328 10*3/ ?L. The reference r torito was not used to interpret this result as normal/abnormal . MPV (test code = 8.3 fL 9.8-13.0 L 56731-0) NRBC/100 WBC (test See_Comment [Automat ed code = 1672392443) message] The system which generated this result transmitted reference range : 0.0 - 10.0 /100 WBCs. The refer ence range was not u sed to interpret th is result as normal/abnormal . NRBC x10^3 (test code <0.01 See_Comment [Auto mated = 7054285418) message] The s ystem which generated this result transmitted reference range : 10*3/?L. The reference range was not used to interpret this result as normal/abnormal . GRAN MAT (NEUT) % 77.9 % (test code = 770-8) IMM GRAN % (test code 0.50 % = 5880448245) LYMPH % (test code = 12.2 % 736-9) MONO % (test code = 5.2 % 5905-5) EOS % (test code = 3.7 % 713-8) BASO % (test code = 0.5 % 706-2) GRAN MAT x10^3(ANC) 9.57 10*3/uL 1.99-6.95 H (test code = 0991249889) IMM GRAN x10^3 (test 0.06 10*3/uL 0.00-0.06 code = 9593407479) LYMPH x10^3 (test code 1.50 10*3/uL 1.09-3.23 = 731-0) MONO x10^3 (test code 0.64 10*3/uL 0.36-1.02 = 742-7) EOS x10^3 (test code = 0.46 10*3/uL 0.06-0.53 711-2) BASO x10^3 (test code 0.06 10*3/uL 0.01-0.09 = 704-7) Lab Interpretation Abnormal (test code = 70234-0) [facility]aleLAB ONLY COVID [id number] 18:43:00COVID DMT InterpretationInterpretation/Recommendations: Molecular NAAT Test Results [...] a nasopharyngeal sample, there is approximately a tkh-ei-jitob chance that the patient was infected and [...] pooled from the [facility] medical recordincluding both current and prior COVID-19 related testing results for the following tests offered atour institution:A. Tests for the Identification of SARS-CoV-2 RNA:SARS-CoV-2 PCR assays including Ashley Aptima, Ashley Fusion, Barrett RealTime, and True Sol Innovations Xpert Xpress. SARS-CoV-2 Rapid ID NOW by the ID NOW assay. ? B. Tests for the Identification of SARS-CoV-2 Antibodies: Chemiluminescent immunoassays including Access SARS-CoV-2 IgM (DXI 600), VITROS Fvug-HRBU-TfD-2 IgG (Vitros 5600 and Vitros 3600), and Barrett SARS-CoV-2 IgG (AIR [employer] GROUND OPERATIONS SUPERVISOR I System). These interpretation comments assume that only the above testing was utilized and that the approved acceptable specimen type(s) were used for a given test. These interpretations are autopopulated into Wattage based on computerized algorithms matching an interpretation [...] [facility] SERVICESCOVID KkeqvvxKDLL-DsN-2 Rapid ID NOW (no units) ? ? Date ? Value ? 08/21/2020 ? Not Detected ? [facility] SERVICESUn[facility]2020-08-23 18:25:00 Test Item Value Reference Range Interpretation Comments POCT GLU (test code = 6999488168) 297 mg/dL 70-110 H Lab Interpretation (test code = Abnormal 09546-9) [facility] GLUCOSE (AUTOMATED)2020-08-23 14:25:00 Test Item Value Reference Range Interpretation Comments POCT GLU (test code = 7069427151) 181 mg/dL 70-110 H Lab Interpretation (test code = Abnormal 03241-5) [facility] Metabolic Panel (NA, K, CL, CO2, GLUCOSE, BUN, CREATININE, CA)2020-08-23 11:45:00 Test Item Value Reference Range Interpretation Comments NA (test code = 132 mmol/L 135-145 L 9181024165) K (test code = 4.0 mmol/L 3.5-5 8420317387) CL (test code = 96 mmol/L 98-108 L 0745134327) CO2 TOTAL (test code = 33 mmol/L 23-31 H 8396692000) AGAP (test code = 2-16 9145844222) BUN (test code = 9 mg/dL 7-23 9984353847) GLUCOSE (test code = 176 mg/dL 70-110 H 9900750548) CREATININE (test code = 0.66 mg/dL 0.6-1.25 1345144961) CALCIUM (test code = 8.5 mg/dL 8.6-10.6 L 1657952524) eGFR Calculation mL/min/1.73m2 (Non-) (test code = 4363268676) eGFR Calculation mL/min/1.73m2 () (test code = 7607824986) JAMES (test code = JAMES) Association of [...] tests). Lab Interpretation Abnormal (test code = 74862-5) [facility]valeMagnesium [id number] 11:45:00 Test Item Value Reference Range Interpretation Comments MAGNESIUM (test code = 0106849096) 2.0 mg/dL 1.7-2.4 Lab Interpretation (test code = Normal 57341-9) [facility] with Zeeuimpsgkrf0304-63-74 11:38:00 Test Item Value Reference Range Interpretation [...] RDW-SD (test code = 41.8 fL 38.5-51.6 59095-4) RDW-CV (test code = 14.3 % 12.1-15.4 788-0) PLT (test code = See_Comment H [Automated 777-3) message] The sy stem which generated this result transmitted reference range : 150 - 328 10*3/ ?L. The reference r torito was not used to interpret this result as normal/abnormal . MPV (test code = 8.0 fL 9.8-13 L 46333-1) NRBC/100 WBC (test See_Comment [Automat ed code = 1572113001) message] The system which generated this result transmitted reference range : 0.0 - 10.0 /100 WBCs. The refer ence range was not u sed to interpret th is result as normal/abnormal . NRBC x10^3 (test code <0.01 See_Comment [Auto mated = 0634218760) message] The s ystem which generated this result transmitted reference range : 10*3/?L. The reference range was not used to interpret this result as normal/abnormal . GRAN MAT (NEUT) % 61.5 % (test code = 770-8) IMM GRAN % (test code 2.00 % = 3408511681) LYMPH % (test code = 25.5 % 736-9) MONO % (test code = 6.3 % 5905-5) EOS % (test code = 3.7 % 713-8) BASO % (test code = 1.0 % 706-2) GRAN MAT x10^3(ANC) 5.29 10*3/uL 1.99-6.95 (test code = 7608814823) IMM GRAN x10^3 (test 0.17 10*3/uL 0-0.06 H code = 9333601043) LYMPH x10^3 (test code 2.19 10*3/uL 1.09-3.23 = 731-0) MONO x10^3 (test code 0.54 10*3/uL 0.36-1.02 = 742-7) EOS x10^3 (test code = 0.32 10*3/uL 0.06-0.53 711-2) BASO x10^3 (test code 0.09 10*3/uL 0.01-0.09 = 704-7) Lab Interpretation Abnormal (test code = 95090-0) [facility] GLUCOSE (AUTOMATED)2020-08-23 10:22:00 Test Item Value Reference Range Interpretation Comments POCT GLU (test code = 6222518124) 164 mg/dL 70-110 H Lab Interpretation (test code = Abnormal 16213-6) [facility] GLUCOSE (AUTOMATED)2020-08-23 05:56:00 Test Item Value Reference Range Interpretation Comments POCT GLU (test code = 4087767283) 242 mg/dL 70-110 H Lab Interpretation (test code = Abnormal 59138-0) [facility] GLUCOSE (AUTOMATED)2020-08-23 03:02:00 Test Item Value Reference Range Interpretation Comments POCT GLU (test code = 5930181279) 210 mg/dL 70-110 H Lab Interpretation (test code = Abnormal 38649-6) [facility] GLUCOSE (AUTOMATED)2020-08-22 23:40:00 Test Item Value Reference Range Interpretation Comments POCT GLU (test code = 7645095937) 267 mg/dL 70-110 H Lab Interpretation (test code = Abnormal 12921-3) [facility] GLUCOSE (AUTOMATED)2020-08-22 19:08:00 Test Item Value Reference Range Interpretation Comments POCT GLU (test code = 1304782686) 191 mg/dL 70-110 H Lab Interpretation (test code = Abnormal 01144-7) [facility] GLUCOSE (AUTOMATED)2020-08-22 13:50:00 Test Item Value Reference Range Interpretation Comments POCT GLU (test code = 8248533505) 174 mg/dL 70-110 H Lab Interpretation (test code = Abnormal 58434-4) [facility]aleURINE [id number] 12:59:00 Test Item Value Reference Range Interpretation Comments URINE CULTURE (test No aerobic growth (< code = 630-4) 1000 CFU/mL) [facility] SunnyvaleCBC with [id number] 11:28:00 Test Item Value Reference Range Interpretation Comments WBC (test code = See_Comment [Automated 6690-2) message] The sy stem which generated this result transmitted reference range : 4.20 - 10.70 10*3/?L. The reference range was not used to interpret this result as normal/abnormal . RBC (test code = See_Comment L [Automated 939-8) message] The sy stem which [...] RDW-SD (test code = 42.5 fL 38.5-51.6 57440-5) RDW-CV (test code = 14.5 % 12.1-15.4 788-0) PLT (test code = See_Comment H [Automated 777-3) message] The sy stem which generated this result transmitted reference range : 150 - 328 10*3/ ?L. The reference r torito was not used to interpret this result as normal/abnormal . MPV (test code = 8.0 fL 9.8-13 L 53494-8) NRBC/100 WBC (test See_Comment [Automat ed code = 9864213946) message] The system which generated this result transmitted reference range : 0.0 - 10.0 /100 WBCs. The refer ence range was not u sed to interpret th is result as normal/abnormal . NRBC x10^3 (test code <0.01 See_Comment [Auto mated = 6801214283) message] The s ystem which generated this result transmitted reference range : 10*3/?L. The reference range was not used to interpret this result as normal/abnormal . GRAN MAT (NEUT) % 69.1 % (test code = 770-8) IMM GRAN % (test code 2.20 % = 2453905386) LYMPH % (test code = 20.9 % 736-9) MONO % (test code = 5.8 % 5905-5) EOS % (test code = 1.0 % 713-8) BASO % (test code = 1.0 % 706-2) GRAN MAT x10^3(ANC) 6.51 10*3/uL 1.99-6.95 (test code = 2922811042) IMM GRAN x10^3 (test 0.21 10*3/uL 0-0.06 H code = 9571662334) LYMPH x10^3 (test code 1.97 10*3/uL 1.09-3.23 = 731-0) MONO x10^3 (test code 0.55 10*3/uL 0.36-1.02 = 742-7) EOS x10^3 (test code = 0.09 10*3/uL 0.06-0.53 711-2) BASO x10^3 (test code 0.09 10*3/uL 0.01-0.09 = 704-7) BASO STIPPLING (test Present A code = 703-9) BANDS (test code = Increased A 0583588852) TOXIC CHANGES (test Present A code = 803-7) Lab Interpretation Abnormal (test code = 10037-9) [facility] Metabolic Panel (NA, K, CL, CO2, GLUCOSE, BUN, CREATININE, CA)2020-08-22 11:12:00 Test Item Value Reference Range Interpretation Comments NA (test code = 135 mmol/L 135-145 9046124797) K (test code = 3.6 mmol/L 3.5-5 8969183185) CL (test code = 99 mmol/L 98-108 0761110000) CO2 TOTAL (test code = 31 mmol/L 23-31 4219289378) AGAP (test code = 2-16 3455244387) BUN (test code = 9 mg/dL 7-23 3246460756) GLUCOSE (test code = 198 mg/dL 70-110 H 1670834626) CREATININE (test code = 0.72 mg/dL 0.6-1.25 1262929618) CALCIUM (test code = 8.3 mg/dL 8.6-10.6 L 8847861880) eGFR Calculation mL/min/1.73m2 (Non-) (test code = 9064548791) eGFR Calculation mL/min/1.73m2 () (test code = 7119717267) JAMES (test code = JAMES) Association of [...] tests). Lab Interpretation Abnormal (test code = 67322-7) [facility]aleMagnesium [id number] 11:12:00 Test Item Value Reference Range Interpretation Comments MAGNESIUM (test code = 7104017996) 2.0 mg/dL 1.7-2.4 Lab Interpretation (test code = Normal 31662-1) [facility]valeLipid Panel (Total Cholesterol, Triglycerides, HDL) - [id number] 11:12:00 Test Item Value Reference Range Interpretation Comments CHOL (test code = 155 mg/dL 120-200 5923481307) HDL (test code = 42 mg/dL >40 2831714053) HDLC RATIO (test code = See_Comment [Au tomated message] 2745509897) The system [employer] generated this result transmit ronan reference range : <=5.0. The refe rence range was not u sed to interpret th is result as normal/abnormal . TRIG (test code = 186 mg/dL 30-170 H 0665712783) LDL CHOL (test code = 76 mg/dL See_Comment [Auto mated message] 75095-4) The system [employer] generated this result transmit ronan reference range : <=160. The refe rence range was not u sed to interpret th is result as normal/abnormal . VLDL (test code = 37 mg/dL 5-60 6747753837) Lab Interpretation (test Abnormal code = 55508-4) [facility]valeHEPATIC FUNCTION PANEL (86283) (ALB,T.PRO,BILI T,BU/BC,ALT,AST,ALK PHOS)2020-08-22 11:12:00 Test Item Value Reference Range Interpretation Comments TOTAL BILI (test code = 4930085899) 0.6 mg/dL 0.1-1.1 BILI UNCON (test code = 4639888337) 0.2 mg/dL 0.1-1.1 BILI CONJ (test code = 1245967019) 0.0 mg/dL 0-0.3 T PROTEIN (test code = 1650622226) 6.0 g/dL 6.3-8.2 L ALBUMIN (test code = 9136229229) 2.8 g/dL 3.5-5 L ALK PHOS (test code = 4253651371) 222 U/L 34-122 H ALTv (test code = 1742-6) 27 U/L 5-50 AST(SGOT) (test code = 3952332517) 30 U/L 13-40 Lab Interpretation (test code = Abnormal 23675-7) [facility] GLUCOSE (AUTOMATED)2020-08-22 10:11:00 Test Item Value Reference Range Interpretation Comments POCT GLU (test code = 0340451259) 196 mg/dL 70-110 H Lab Interpretation (test code = Abnormal 04752-9) [facility] GLUCOSE (AUTOMATED)2020-08-22 07:15:00 Test Item Value Reference Range Interpretation Comments POCT GLU (test code = 3593041636) 183 mg/dL 70-110 H Lab Interpretation (test code = Abnormal 97870-3) [facility] GLUCOSE (AUTOMATED)2020-08-22 02:30:00 Test Item Value Reference Range Interpretation Comments POCT GLU (test code = 7614613795) 295 mg/dL 70-110 H Lab Interpretation (test code = Abnormal 19529-4) [facility] GLUCOSE (AUTOMATED)2020-08-21 23:46:00 Test Item Value Reference Range Interpretation Comments POCT GLU (test code = 3485854295) 258 mg/dL 70-110 H Lab Interpretation (test code = Abnormal 94280-7) [facility] SunnyvaleC-REACTIVE [id number] 18:50:00 Test Item Value Reference Range Interpretation Comments CRP (test code = 1214936995) 15.5 mg/dL <0.8 H Lab Interpretation (test code = Abnormal 72858-2) [facility]alePOCT GLUCOSE (AUTOMATED)2020-08-21 18:21:00 Test Item Value Reference Range Interpretation Comments POCT GLU (test code = 4692858453) 297 mg/dL 70-110 H Lab Interpretation (test code = Abnormal 72163-2) [facility] SunnyvaleETHANOL2020-11-09 16:24:00 Test Item Value Reference Range Interpretation Comments ALCOHOL (test code = <10 mg/dL 4953550782) JAMES (test code = Toxic Greater than or JAMES) equal to 80 mg/dL. NOTE: Whole blood values are approximately 10% to 15% lower than serum and plasma. [facility] SunnyvaleGAL/CLC ONLY - URINE DRUG (IMMUNOASSAY) - 4 ER [id number] 15:36:00 Test Item Value Reference Range Interpretation Comments AMPHET (test code = Negative Negative 2358692755) Cocaine Metabolite (test Negative Negative code = 6616985488) OPIATES (test code = Presumptive Positive Negative A 6976613929) THC (test code = Negative Negative 1651729798) JAMES (test code = JAMES) Urine Drug Cutoff Ranges Amphetamine: ? 1,000 ng/mLCocaine: ? 150 ng/mLOpiates: ? 300 ng/mLCannabinoids: ?50 ng/mL The results are to be used only for medical (i.e., treatment) purposes. Unconfirmed screening results must not be used for non-medical purposes (e.g., employment testing, legal testing). Lab Interpretation (test Abnormal code = 71627-6) [facility] ONLY - SYPHILIS IGG/KFG1209-11-00 15:04:00 Test Item Value Reference Range Interpretation Comments Syphilis IgG/IgM (test Non-reactive Non-reactive code = 51318-5) JAMES (test code = JAMES) Non-reactive - No serologic evidence of T. pallidum infection. Cannot exclude incubating or early syphilis. Submit a second specimen in 2-4 weeks if syphilis is clinically suspected. Equivocal - Further testing to follow. Reactive - Further testing to follow. Lab Interpretation (test Normal code = 06690-4) [facility] SunnyvaleUrinalysis2020-11-09 14:52:00 Test Item Value Reference Range Interpretation Comments APPEARANCE (test code = Clear Clear 7040473463) COLOR (test code = Yellow Yellow 0752791001) PH (test code = 4.8-8.0 5148099255) SP GRAVITY (test code = 1.003-1.030 3874704581) GLU U QUAL (test code = 500 mg/dL Normal A 2543588245) BLOOD (test code = Negative Negative 6730744203) KETONES (test code = 20 mg/dL Negative A 3487364875) PROTEIN (test code = Negative Negative 2887-8) UROBILIN (test code = Normal Normal 6945837803) BILIRUBIN (test code = Negative Negative 5243706883) NITRITE (test code = Negative Negative 4152858569) LEUK RYAN (test code = Negative Negative 0702640168) RBC/HPF (test code = <1 See_Comment [Autom ated message] 2151747345) The system [employer] generated this result transmit ronan reference range : 0 - 3 HPF. The refe rence range was not u sed to interpret th is result as normal/abnormal . WBC/HPF (test code = See_Comment [Autom ated message] 0234015320) The system [employer] generated this result transmit ronan reference range : 0 - 5 HPF. The refe rence range was not u sed to interpret th is result as normal/abnormal . BACTERIA (test code = Negative Negative 1471295455) MUCOUS (test code = Slight Negative LPF A 6750661988) Lab Interpretation (test Abnormal code = 31723-9) [facility] SunnyvaleACTIVATED PARTIAL THRMPLAS [id number] 13:45:00 Test Item Value Reference Range Interpretation Comments APTT Patient (test code = See_Comment [ Automated message] 3173-2) The system [employer] generated this result transmitted ref erence range: 26 - 36 Seconds. The re ference range was not u sed to interpret this result as normal/abnor mal. Lab Interpretation (test Normal code = 38559-4) [facility]alePOCT GLUCOSE (AUTOMATED)2020-08-21 13:45:00 Test Item Value Reference Range Interpretation Comments POCT GLU (test code = 7477454923) 246 mg/dL 70-110 H Lab Interpretation (test code = Abnormal 32658-2) [facility] SunnyvaleHIV 1/2 AG-AB WITH [id number] 12:32:00 Test Item Value Reference Range Interpretation Comments HIV Negative Negative Semi-quantitative (test code = 72174-4) JAMES (test code = Non-reactive for HIV-1 JAMES) antigen and HIV-1/HIV-2 antibodies. ?No laboratory evidence of HIV infection. ?Repeat in 2-4 weeks if acute HIV infection is suspected. [facility] SunnyvaleCBC WITH [id number] 12:18:00 Test Item Value Reference Range Interpretation [...] RDW-SD (test code = 44.4 fL 38.5-51.6 68034-4) RDW-CV (test code = 14.5 % 12.1-15.4 788-0) PLT (test code = See_Comment H [Automated 777-3) message] The sy stem which generated this result transmitted reference range : 150 - 328 10*3/ ?L. The reference r torito was not used to interpret this result as normal/abnormal . MPV (test code = 8.5 fL 9.8-13 L 74434-7) NRBC/100 WBC (test See_Comment [Automat ed code = 3156210512) message] The system which generated this result transmitted reference range : 0.0 - 10.0 /100 WBCs. The refer ence range was not u sed to interpret th is result as normal/abnormal . NRBC x10^3 (test code <0.01 See_Comment [Auto mated = 1096384850) message] The s ystem which generated this result transmitted reference range : 10*3/?L. The reference range was not used to interpret this result as normal/abnormal . GRAN MAT (NEUT) % 90.4 % (test code = 770-8) IMM GRAN % (test code 1.30 % = 3794946720) LYMPH % (test code = 7.1 % 736-9) MONO % (test code = 0.5 % 5905-5) EOS % (test code = 0.1 % 713-8) BASO % (test code = 0.6 % 706-2) GRAN MAT x10^3(ANC) 7.74 10*3/uL 1.99-6.95 H (test code = 1525599990) IMM GRAN x10^3 (test 0.11 10*3/uL 0-0.06 H code = 7277875459) LYMPH x10^3 (test code 0.61 10*3/uL 1.09-3.23 L = 731-0) MONO x10^3 (test code 0.04 10*3/uL 0.36-1.02 L = 742-7) EOS x10^3 (test code = <0.03 0.06-0.53 L 711-2) BASO x10^3 (test code 0.05 10*3/uL 0.01-0.09 = 704-7) POLYCHROMASIA (test 2+ See_Comment [Automa ronan code = 57437-4) message] The system which generated this result transmitted reference range : 2+. The referen ce range was not u sed to interpret th is result as normal/abnormal . BANDS (test code = Increased A 8800894434) Lab Interpretation Abnormal (test code = 84195-7) [facility] SunnyvalePROCALCITONIN2020-11-09 11:48:00 Test Item Value Reference Range Interpretation Comments Procalcitonin (test 0.36 ng/mL <0.07 H code = 2478438359) JAMES (test code = JAMES) INTERPRETATION OF [...] lung abscess/empyema. For further information please refer to:[email or web address] Lab Interpretation Abnormal (test code = 17568-4) [facility]ANC[facility] [id number] 10:53:00 Test Item Value Reference Range Interpretation Comments LDH (test code = 2144414334) 351 U/L 300-600 Lab Interpretation (test code = Normal 10813-2) [facility]aleSEDIMENTATION [id number] 10:07:00 Test Item Value Reference Range Interpretation Comments ESR (test code = See_Comment H [Automated message] 2571502951) The system [employer] generated this result transmitted ref erence range: 0 - 10 m m/HR. The reference r torito was not used to interpret this result as normal/abnor mal. Lab Interpretation (test Abnormal code = 91863-0) [facility] GLU[facility]SE (AUTOMATED)2020-08-21 09:45:00 Test Item Value Reference Range Interpretation Comments POCT GLU (test code = 8099792351) 287 mg/dL 70-110 H Lab Interpretation (test code = Abnormal 64165-6) [facility]Glycosylated Hemoglobin (A1C)2020-08-21 09:29:00 Test Item Value Reference Range Interpretation Comments HGB A1C (test code = 4548-4) 9.8 % 4-6 H Lab Interpretation (test code = Abnormal 04983-1) [facility]OVID[facility] (ID NOW RAPID TESTING)2020-08-21 09:13:00 Test Item Value Reference Range Interpretation Comments SARS-CoV-2 Rapid ID NOW Not Detected Not Detected (test code = 20450-4) JAMES (test code = JAMES) ID NOW COVID-19 Assay is an isothermal nucleic acid amplification test intended for the qualitative detection of nucleic acid from SARS-CoV-2 viral RNA in nasopharyngeal (PHYSICIAN INTERNIST) specimens. It is used under Emergency Use [...] indicated. Lab Interpretation Normal (test code = 27566-7) [facility]aleProthrombin Time / [id number] 08:59:00 Test Item Value Reference Range Interpretation Comments PROTIME PATIENT (test See_Comment H [Auto mated message] code = 5964-2) The system [employer] generated this result transmitted ref erence range: 10.1 - 1 2.6 Seconds. The reference range was not used to int erpret this result as normal/abnormal . INR (test code = 6301-6) Nor mal INR <1.1; Warfarin Therap eutic range 2.0 to 3. 0 or 2.5 to 3.5, dep ending upon the indica tions. Lab Interpretation (test Abnormal code = 18359-2) [facility]aPTT2020-11-09 08:59:00 Test Item Value Reference Range Interpretation Comments APTT Patient (test code = See_Comment [ Automated message] 3173-2) The system [employer] generated this result transmitted ref erence range: 26 - 36 Seconds. The re ference range was not u sed to interpret this result as normal/abnor mal. Lab Interpretation (test Normal code = 99559-7) [facility] METABOLIC PANEL (NA, K, CL, CO2, GLUCOSE, BUN, CREATININE, CA)2020-08-21 08:52:00 Test Item Value Reference Range Interpretation Comments NA (test code = 136 mmol/L 135-145 1538489146) K (test code = 4.3 mmol/L 3.5-5 5863200735) CL (test code = 104 mmol/L 98-108 8122047229) CO2 TOTAL (test code = 24 mmol/L 23-31 8696244547) AGAP (test code = 2-16 5338441333) BUN (test code = 8 mg/dL 7-23 6507234884) GLUCOSE (test code = 308 mg/dL 70-110 H 7262216455) CREATININE (test code = 0.72 mg/dL 0.6-1.25 1270857546) CALCIUM (test code = 7.8 mg/dL 8.6-10.6 L 8075334383) eGFR Calculation mL/min/1.73m2 (Non-) (test code = 2483706873) eGFR Calculation mL/min/1.73m2 () (test code = 2611569409) JAMES (test code = JAMES) Association of [...] tests). Lab Interpretation Abnormal (test code = 72700-1) [facility]aleHEPATIC FUNCTION PANEL (64128) (ALB,T.PRO,BILI T,BU/BC,ALT,AST,ALK PHOS)2020-08-21 08:52:00 Test Item Value Reference Range Interpretation Comments TOTAL BILI (test code = 0354076378) 0.8 mg/dL 0.1-1.1 BILI UNCON (test code = 3052684911) 0.3 mg/dL 0.1-1.1 BILI CONJ (test code = 0370869963) 0.0 mg/dL 0-0.3 T PROTEIN (test code = 8777844129) 5.7 g/dL 6.3-8.2 L ALBUMIN (test code = 4107211186) 2.7 g/dL 3.5-5 L ALK PHOS (test code = 0090019945) 245 U/L 34-122 H ALTv (test code = 1742-6) 37 U/L 5-50 AST(SGOT) (test code = 0830679790) 43 U/L 13-40 H Lab Interpretation (test code = Abnormal 27303-2) [facility]
[2022-10-31] MEDS ORDERED: KETOROLAC 30 MG/ML INJ ONE (16:58)
[2022-10-31] MEDS ORDERED: ACETAMINOPHEN 500 MG TAB ONE (17:20)
[2022-10-31] MEDS ORDERED: clonazePAM 0.5 MG TAB ONE (17:21)
--- NOTE | 2022-10-31 17:35 | EDPHYS ---
Physician Documentation [facility] Name: Kiel Ngo Age: 72 yrs Sex: Male : 1950 Arrival Date: 10/31/2022 Time: 16:43 Bed 7 Private MD: ED Physician Calvin Wright HPI: 10/31 16:48 This 72 yrs old Male presents to ER via Unassigned with complaints of hip pain. sb4 16:48 The patient or guardian reports pain. sustained from a chronic condition, sb4 osteoarthritis. The complaints affect the left hip and right hip. The patient has experienced similar episodes in the past, chronically. Historical: - Allergies: 16:58 Demerol; mb9 16:58 metformin; mb9 16:58 Morphine; mb9 - Home Meds: 16:58 hydromorphone 4 mg Oral tab 1 tab three times a day [Active]; Klonopin 2 mg Oral TbDi 2 mb9 tabs 4 times a day [Active]; - PMHx: 16:58 Atrial fibrillation; chronic back pain; Chronic right leg pain; neuropathy; mb9 - PSHx: 16:58 back sx; PANCREAS SX; R. Ankle SX; mb9 - Immunization history:: Adult Immunizations up to date. - Social history:: Smoking status: unknown. ROS: 16:48 Constitutional: Negative for fever, chills, and weight loss, Eyes: Negative for injury, sb4 pain, redness, and discharge, ENT: Negative for injury, pain, and discharge, Neck: Negative for injury, pain, and swelling, Cardiovascular: Negative for chest pain, palpitations, and edema, Respiratory: Negative for shortness of breath, cough, wheezing, and pleuritic chest pain, Abdomen/GI: Negative for abdominal pain, nausea, vomiting, diarrhea, and constipation, Skin: Negative for injury, rash, and discoloration, Neuro: Negative for headache, weakness, numbness, tingling, and seizure. 16:48 MS/extremity: Positive for pain, bilateral hip pain. Exam: 16:48 Constitutional: This is a well developed, well nourished patient who is awake, alert, sb4 and in no acute distress. Head/Face: Normocephalic, atraumatic. Eyes: Pupils equal round and reactive to light, extra-ocular motions intact. Periorbital areas with no swelling, redness, or edema. ENT: Mucous membranes moist. Cardiovascular: Regular rate and rhythm with a normal S1 and S2. Respiratory: Lungs have equal breath sounds bilaterally, clear to auscultation and percussion. No rales, rhonchi or wheezes noted. No increased work of breathing, no retractions or nasal flaring. Abdomen/GI: Soft, non-tender, no distension. Skin: Warm, dry with normal turgor. Normal color with no rashes, no lesions, and no evidence of cellulitis. MS/ Extremity: Pulses equal, no cyanosis. Neurovascular intact. Full, normal range of motion. Neuro: Awake and alert, GCS 15, oriented to person, place, time, and situation. Cranial nerves II-XII grossly intact. Motor strength 5/5 in all extremities. Sensory grossly intact. Cerebellar exam normal. Normal gait. Vital Signs: 16:47 BP 161 / 100; Pulse 119; Resp 20; Temp 98.8(O); Pulse Ox 100% ; Weight 83.91 kg; Height mb9 5 ft. 11 in. (180.34 cm); Pain 10/10; 17:20 BP 161 / 89; Pulse 115; Resp 18; Pulse Ox 97% on R/A; mb9 16:47 Body Mass Index 25.80 (83.91 kg, 180.34 cm) mb9 MDM: 16:45 Patient medically screened. sb4 16:48 Differential diagnosis: arthritis, strain, chronic pain. Data reviewed: vital signs, sb4 nurses notes, EMS record, and as a result, I will discharge patient. Administered Medications: 16:58 Drug: Ketorolac 30 mg Route: IM; Site: right deltoid; mb9 17:35 Follow up: Response: No adverse reaction mb9 17:20 Drug: Tylenol 1000 mg Route: PO; mb9 17:35 Follow up: Response: No adverse reaction mb9 17:20 Drug: clonazePAM 0.25 mg Route: PO; mb9 17:35 Follow up: Response: No adverse reaction mb9 Disposition: 18:18 Co-signature as Attending Physician, Calvin Wright MD I agree with the assessment and kdr plan of care. Disposition Summary: 10/31/22 17:35 Discharge Ordered Location: Home sb4 Problem: an ongoing problem sb4 Symptoms: have improved sb4 Condition: Stable sb4 Diagnosis - Bilateral Hip Pain- Chronic sb4 Followup: sb4 - With: - When: As needed - Reason: Recheck today's complaints, Re-evaluation by your physician Followup: sb4 - With: - When: Tomorrow - Reason: Recheck today's complaints Forms: - Medication Reconciliation Form sb4 - Thank You Letter sb4 - Antibiotic Education sb4 - Prescription Opioid Use sb4 Signatures: Calvin Wright MD MD kdr Brown, Sophia, PA-C PA-C sb4 Emelia Beard RN RN mb9
--- NOTE | 2022-10-31 17:35 | ER ---
Nurse's Notes [facility] Name: Kiel Ngo Age: 72 yrs Sex: Male : 1950 Arrival Date: 10/31/2022 Time: 16:43 Bed 7 Private MD: Diagnosis: Bilateral Hip Pain- Chronic Presentation: 10/31 16:47 Chief complaint: EMS states: pt is having chronic right hip pain and states it hurts a mb9 little in the left hip as well. Coronavirus screen: Vaccine status: Patient reports receiving the 2nd dose of the covid vaccine. Ebola Screen: No symptoms or risks identified at this time. Initial Sepsis Screen: Does the patient meet any 2 criteria? HR > 90 bpm. Does the patient have a suspected source of infection? No. Patient's initial sepsis screen is negative. Risk Assessment: Do you want to hurt yourself or someone else? Patient reports no desire to harm self or others. Onset of symptoms is unknown. 16:47 Method Of Arrival: EMS: [facility] mb9 16:47 Acuity: JOZEF 3 mb9 16:50 Note EMS states "we were supposed to pick him up for a pain management appointment mb9 today but he skipped it". Triage Assessment: 16:51 General: Appears in no apparent distress. comfortable, Behavior is calm, cooperative. mb9 Pain: Complains of pain in right hip and left hip Pain does not radiate. Pain currently is 10 out of 10 on a pain scale. Quality of pain is described as stabbing. EENT: No deficits noted. Neuro: Villalobos Agitation-Sedation Scale (RASS): 0 - Alert and Calm Level of Consciousness is awake, alert, obeys commands, Oriented to person, place, time, situation, Appropriate for age. Cardiovascular: Capillary refill < 3 seconds is brisk Patient's skin is warm and dry. Respiratory: Airway is patent Respiratory effort is even, unlabored, Respiratory pattern is regular, symmetrical. GI: No signs and/or symptoms were reported involving the gastrointestinal system. Derm: Skin is pink, warm \\T\\ dry. Musculoskeletal: Range of motion: limited in left hip and right hip. Historical: - Allergies: 16:58 Demerol; mb9 16:58 metformin; mb9 16:58 Morphine; mb9 - Home Meds: 16:58 hydromorphone 4 mg Oral tab 1 tab three times a day [Active]; Klonopin 2 mg Oral TbDi 2 mb9 tabs 4 times a day [Active]; - PMHx: 16:58 Atrial fibrillation; chronic back pain; Chronic right leg pain; neuropathy; mb9 - PSHx: 16:58 back sx; PANCREAS SX; R. Ankle SX; mb9 - Immunization history:: Adult Immunizations up to date. - Social history:: Smoking status: unknown. Screenin:52 [facility] ED Fall Risk Assessment (Adult) History of falling in the last 3 months, mb9 including since admission Yes- fall prone (multiple falls) (3 pts) Confusion or Disorientation No (0 pts) Intoxicated or Sedated No (0 pts) Impaired Gait Yes (1 pt) Mobility Assist Device Used Yes (1 pt) Altered Elimination Yes (1 pt) Score/Fall Risk Level 3 or more points = High Risk Oriented to surroundings, Maintained a safe environment, Educated pt \\T\\ family on fall prevention, incl call for assistance when getting out of bed. Abuse screen: Denies threats or abuse. Nutritional screening: No deficits noted. Tuberculosis screening: No symptoms or risk factors identified. Assessment: 16:52 Reassessment: see triage assessment. mb9 Vital Signs: 16:47 BP 161 / 100; Pulse 119; Resp 20; Temp 98.8(O); Pulse Ox 100% ; Weight 83.91 kg; Height mb9 5 ft. 11 in. (180.34 cm); Pain 10/10; 17:20 BP 161 / 89; Pulse 115; Resp 18; Pulse Ox 97% on R/A; mb9 16:47 Body Mass Index 25.80 (83.91 kg, 180.34 cm) mb9 ED Course: 16:43 Patient arrived in ED. sb4 16:44 Cindy Shook PA-C is PHCP. sb4 16:44 Calvin Wright MD is Attending Physician. sb4 16:47 Emelia Beard RN is Primary Nurse. mb9 16:50 Triage completed. mb9 16:51 Arm band placed on. mb9 16:53 Placed in gown. Bed in low position. Call light in reach. Side rails up X 1. Client mb9 placed on continuous cardiac and pulse oximetry monitoring. NIBP monitoring applied. 16:53 No provider procedures requiring assistance completed. mb9 17:35 Isai Snow MD is Referral Physician. sb4 17:35 Madhu Francois DO is Referral Physician. sb4 17:40 Patient did not have IV access during this emergency room visit. mb9 Administered Medications: 16:58 Drug: Ketorolac 30 mg Route: IM; Site: right deltoid; mb9 17:35 Follow up: Response: No adverse reaction mb9 17:20 Drug: Tylenol 1000 mg Route: PO; mb9 17:35 Follow up: Response: No adverse reaction mb9 17:20 Drug: clonazePAM 0.25 mg Route: PO; mb9 17:35 Follow up: Response: No adverse reaction mb9 Medication: 16:53 VIS not applicable for this client. mb9 Outcome: 17:35 Discharge ordered by . sb4 17:40 Discharged to home via ambulance. mb9 17:40 Condition: stable 17:40 Discharge instructions given to patient, Instructed on discharge instructions, follow up and referral plans. Demonstrated understanding of instructions, follow-up care. 17:58 Patient left the ED. mb9 Signatures: Cindy Shook PA-C PA-C sb4 Emelia Beard RN RN mb9
[2022-10-31 18:20] VITALS: TEMP 98.8
[2022-10-31 18:21] VITALS: BP 161/89; O2SAT 97
== END 2022-10-31 17:58 | disposition home or self-care (01) ==
LOC: ER 16:42
DX: M25.552 Pain in left hip (principal); M25.551 Pain in right hip; I48.91 Unspecified atrial fibrillation; Z88.5 Allergy status to narcotic agent; Z88.8 Allergy status to other drugs, medicaments and biological substances
CPT/HCPCS: 96372; 99283

== ENCOUNTER 2022-11-02 21:59 | Emergency (ER) | payer OTHER ==
--- OUTSIDE RECORDS SUMMARY | 2022-11-02 22:08 | XMS REPORT | Continuity of Care Document ---
:1950 Author Organization [facility] t Address [address] [place] [address] Care Team Providers Name Role Phone CALVIN [...] PACO LACEY Attending Clinician Unavailable Doctor Unassigned, [place] Attending Clinician Unavailable Wilder VILLAREAL, Angi K.HWong Attending Clinician Jl Mccabe MD Attending Clinician Kelly Washington MD Attending Clinician [phone] Mukul Gallardo MD Attending Clinician MUKUL GALLARDO Admitting Clinician Unavailable Harrison MD, Premal G Admitting Clinician KRUPA VIKA G Admitting Clinician Unavailable Nicci VILLAREAL, Mukul Anand Admitting Clinician Payers Payer Name Policy Type Policy Number Effective Date Expiration Date Tony doe MEDICARE PART A [id number] 2007 \\T\\ B 00:00:00 [employer] INDEMNITY [id number] 2016 00:00:00 MEDICARE PART A [id number] 2014 \\T\\ B - MEDICARE 00:00:00 INDEMNITY/TRADITIO [id number] NAL CHOICE - [employer] 00:00:00 Problems Condition [...] ents Source Name Type Date Date Clinician [place] Prop[facility]i Active Rash 2019- Univers ty to [...] Quantity Comments Source Exposure to Not sure [place] of SARS-CoV-2 [place] [facility] (event) Branch History of Chews Tobacco University of tobacco use [place] [facility] History SDOH 2020-11-17 2020-11-17 5 University o f Financial 00:00:00 00:00:00 [place] [facility] History SDNJ Food 2020-11-17 2020-11-17 1 Univers ity of Worry 00:00:00 00:00:00 [place] [facility] History SDOH Food 2020-11-17 2020-11-17 1 Univers ity of Scarcity 00:00:00 00:00:00 [place] [facility] History SDOH 2020-11-17 2020-11-17 1 University o f Transport Med 00:00:00 00:00:00 [place] [facility] al [facility] History SDOH 2020-11-17 2020-11-17 1 University o f Transport Non-Med 00:00:00 00:00:00 [facility] edical Branch Education 2020-11-16 2020-11-16 21 [place] of 00:00:00 00:00:00 [facility] Alcohol intake 2020-11-16 2020-11-16 Ex-drinker [facility] 00:00:00 00:00:00 (finding) [facility] Tobacco use and 2020-08-21 2020-08-21 Former user Universi ty of exposure 00:00:00 00:00:00 [facility] Tobacco Comment 2020-08-21 2020-08-21 quit 10 years Univer sity of 00:00:00 00:00:00 ago, started in [place] Med ical 2nd year of Branch college (~40 years) Alcohol Comment 2020-08-21 2020-08-21 Used to have 2-3 Uni versity of 00:00:00 00:00:00 six-packs of [place] Medica l beer daily x 20 Branch years, quit 2004 History [facility] 2020-08-21 2020-08-21 99 University o f Alcohol Frequency 00:00:00 00:00:00 [place] [facility] edical Branch History [facility] 2020-08-21 2020-08-21 99 [place] o f Alcohol Std 00:00:00 00:00:00 [place] [facility] Drinks Branch History [facility] 2020-08-21 2020-08-21 99 [place] o f Alcohol Binge 00:00:00 00:00:00 [facility] al [place] Sex Assigned At [birth year] Universit y of 00:00:00 00:00:00 [facility] Smoking Status Start Date Stop Date Source Never smoker [facility] Medications Ordered Filled Start Stop [...] by ity of tablet 22:47: mouth at [place] 18 bedtime. Medical Branch HYDROmorpho 2020-0 Yes [...] by ity of tablet 22:47: mouth at [place] 18 bedtime. Medical Branch HYDROmorpho 0 Yes [...] by ity of tablet 16:47: mouth at [place] 18 bedtime. Medical Branch HYDROmorpho 0 Yes [...] 0845, Until Discontinu ed, Routine amLODIPine Yes [id number] 10mg Take 1 Univers 10 mg 3-07 tablet by ity of tablet 00:00: mouth [place] 00 daily. Medical Branch clotrimazol Yes [id number] Apply to Univers e 1 % 3-07 face/ears, ity of topical 00:00: armpits, [place] cream 00 pannus and Medical back/any Branch other rash twice a day fluocinonid 0 Yes [id number] Apply to Univers e 0.05 % 3-07 scalp ity of solution 00:00: twice a [place] 00 day Medical Branch triamcinolo Yes [id number] Apply to Univers ne 3-07 back, ity of acetonide 00:00: armpits [place] 0.1 % cream 00 and other Med ical affected Branch areas twice daily, please mix with clotrimazo le hydrOXYzine Yes [id number] 10mg Take 1 Univers 10 mg 3-07 tablet by ity of tablet 00:00: mouth 2 00 (two) Medical times Branch daily. amLODIPine Yes [id number] 10mg Take 1 Univers 10 mg 3-07 tablet by ity of tablet 00:00: mouth [place] 00 daily. Medical Branch clotrimazol Yes [id number] Apply to Univers e 1 % 3-07 face/ears, ity of topical 00:00: armpits, [place] cream 00 pannus and Medical back/any Branch other rash twice a day fluocinonid Yes [id number] Apply to Univers e 0.05 % 3-07 scalp ity of solution 00:00: twice a day Medical Branch triamcinolo Yes [id number] Apply to Univers ne 3-07 back, ity of acetonide 00:00: armpits [place] 0.1 % cream 00 and other Med ical affected Branch areas twice daily, please mix with clotrimazo le hydrOXYzine Yes [id number] 10mg Take 1 Univers 10 mg 3-07 tablet by ity of tablet 00:00: mouth 2 [place] 00 (two) Medical times Branch daily. amLODIPine Yes [id number] 10mg Take 1 Univers 10 mg 3-07 tablet by ity of tablet 00:00: mouth [place] 00 daily. Medical Branch clotrimazol 0 Yes [id number] Apply to Univers e 1 % 3-07 face/ears, ity of topical 00:00: armpits, [place] cream 00 pannus and Medical back/any Branch other rash twice a day fluocinonid 2020-0 Yes [id number] Apply to Univers e 0.05 % 3-07 scalp ity of solution 00:00: twice a day Medical Branch triamcinolo 2020-0 Yes [id number] Apply to Univers ne 3-07 back, ity of acetonide 00:00: armpits [place] 0.1 % cream 00 and other Med ical affected Branch areas twice daily, please mix with clotrimazo le hydrOXYzine Yes [id number] 10mg Take 1 Univers 10 mg 3-07 tablet by ity of tablet 00:00: mouth 2 [place] (two) Medical times Branch daily. amLODIPine Yes [id number] 10mg Take 1 Univers 10 mg 3-07 tablet by ity of tablet 00:00: mouth [place] 00 daily. Medical Branch clotrimazol Yes [id number] Apply to Univers e 1 % 3-07 face/ears, ity of topical 00:00: armpits, [place] cream 00 pannus and Medical back/any Branch other rash twice a day fluocinonid Yes [id number] Apply to Univers e 0.05 % 3-07 scalp ity of solution 00:00: twice a day Medical Branch triamcinolo 0 Yes [id number] Apply to Univers ne 3-07 back, ity of acetonide 00:00: armpits [place] 0.1 % cream 00 and other Med ical affected Branch areas twice daily, please mix with clotrimazo le hydrOXYzine Yes [id number] 10mg Take 1 Univers 10 mg 3- tablet by ity of tablet 00:00: mouth 2 (two) Medical times Branch daily. cephALEXin 2020-2020- No [id number] 500mg Take 1 Univers 500 mg -04 14- capsule by ity of capsule 00:00: 05:59 mouth [place] 00 :00 every 6 Medical (six) Branch hours for 3 days. cephALEXin 2020-0 2020- No [id number] 500mg Take 1 Univers 500 mg 3-04 14- capsule by ity of capsule 00:00: 05:59 mouth [place] 00 :00 every 6 Medical (six) Branch hours for 3 days. hydrOXYzine 2020-2020- No [id number] 10mg Take 1 Univers 10 mg 3- 03-07 tablet by ity of tablet 00:00: 00:00 mouth 2 [place] 00 :00 (two) Medical times [place] daily. morpHINE Yes 4mg 4 mg, Slow Uni vers injection 4 -06 IV Push, ity of mg 22:40: Q6HPRN, [place] 02 Starting Medical 12/16/20 [place] at 1640, Until Discontinu ed, Routine, Pain [...] 00 :00 dose, Sat Medical 12/16/20 at [place] 0515, Routine lactated 2020- No 1000mL at 125 Univ ers ringers IV 12-16 03-06 mL/hr, ity of infusion 01:00: 00:16 1,000 mL, [place] 1,000 mL 00 :00 IV Medical Infusion, [place] ONCE, 1 dose, 12/15/20 at 1900, Routine iohexol 2020- No 100mL 100 mL, Unive rs (OMNIPAQUE 12-15-05 Intravenou it y of 350 22:24: 22:24 s, ONCE, 1 [place] BULK-100 00 :00 dose, Fri Medica l mL) 12/15/20 at [place] injection 1645, 100 mL Routine cephALEXin 2020- [...] NaCl 0.9% 2020- No 500mL at 999 [facility] ers (NS) bolus 12-15-05 mL/hr, 500 it y of infusion 16:00: 15:26 mL, IV [place] 500 mL 00 :00 Piggyback, Medical ONCE, 1 Branch dose, Fri12/15/20 at 1000, STAT HYDROmorpho Yes 4mg 4 mg, [facility] 05 Oral, BID, ity of (DILAUDID) 15:30: First dose [place] tablet 4 mg 00 (after Medica l last Branch modificati on) on Fri12/15/20 at 0930, Until Discontinu ed, Routine amLODIPine 2020- No [id number] 10mg Take 1 Univers 10 mg 12-1507 tablet by ity of tablet 00:00: 00:00 mouth [place] 00 :00 daily. Medical Branch HYDROmorpho 2020- No 1mg 1 mg, [facility] ers ne 12-14 03-05 Oral, ity of (DILAUDID) 17:35: 15:18 Q6HPRN, [place] tablet 1 mg 30 :06 Starting Medi [facility] 12/14/20 Branch at 1135, Until Fri12/15/20 at 0918, Routine, Pain (scale 7-10) hydrOXYzine Yes 10mg 10 mg, [facility] ers (ATARAX) 304 Oral, BID, ity o f tablet 10 17:30: First [place] mg 00 on Psychiatric 12/14/20 at Branch 1130, Until Discontinu ed, Routine lisinopriL 0 Yes 5mg 5 mg, Univer s (PRINIVIL,Z -04 Oral, ity of ESTRIL) 17:30: DAILY, [place] tablet 5 mg 00 First dose Me dical on [facility] Branch 12/14/20 at 1130, Until Discontinu ed, Routine triamcinolo 2020- No [id number] Apply to Univers ne 12-14 back, ity of acetonide 00:00: 00:00 armpits [place] 0.1 % cream 00 :00 and other Med ical affected Branch areas twice daily, please mix with clotrimazo le clotrimazol 2020- No [id number] Apply to Univers e 1 % 12-14 face/ears, ity of topical 00:00: 00:00 armpits, [place] cream 00 :00 pannus and Medical back/any Branch other rash twice a day fluocinonid 2020- No [id number] Apply to Univers e 0.05 % 12-14 scalp ity of solution 00:00: 00:00 twice a [place] 00 :00 day Medical Branch hydrOXYzine 2020- No [id number] 10mg Take 1 Univers 10 mg 12-14 [...] injection 4 00 :00 dose, [facility] ical mg 12/12/20 at Branch 2300, Routine traMADoL 2020- No 50mg 50 mg, Univer s (ULTRAM) 12-13 03-03 Oral, ity of tablet 50 03:45: 03:34 ONCE, 1 [place] mg 00 :00 dose, [facility] 12/12/20 at Branch 2145, Routine insulin Yes 15U 15 Units, [facility] rs glargine 12-12 Subcutaneo ity o f (LANTUS 15:00: us, DAILY, [place] U-100) 00 First dose Medical injection on [facility] 15 Units 12/12/20 at 0900, Until Discontinu ed hydrOXYzine 2020- No 10mg 10 mg, Uni vers (ATARAX) 12-12 03-02 Oral, ity of tablet 10 08:15: 07:33 ONCE, 1 [place] mg 00 :00 dose, [facility] 12/12/20 at Branch 0215, Routine mirtazapine Yes [...] Oral, ity of (TYLENOL 23:23: 13:49 Q6HPRN, [place] #3) 300-30 43 :08 Starting Medic al [...] 00 Fri12/11/20 Me dical cream at 1315, [place] Until Discontinu ed, Routine hydrocortis 0 Yes [...] ity of 1,000 mg in 19:00: 17:35 [place], [place] NaCl 0.9% 00 :26 Q8H ABX, [...] ed, Routine insulin Yes 5U 5 Units, [facility] lispro 12-11 Subcutaneo ity of (human) 18:00: us, TID [place] (HumaLOG 00 MEALS, Medical U-100) First dose Branch injection 5 on Mon Units 12/11/20 at 1200, Until Discontinu ed Polyethylen Yes 17g 17 g, [facility] rs e Glycol 12-11 Oral, ity of 3350 17:47: [id number], [place] (MIRALAX) 05 Starting Medica l powder 17 g 12/11/20 Br anch at 1147, Until Discontinu ed, Routine, Constipati on acetaminoph Yes 650mg 650 mg, Un toi en 12-11 Oral, ity of (TYLENOL) 16:51: Q6HPRN, [place] tablet 650 28 Starting Medic al mg [...] 0630, STAT piperacilli No 3.375g 3.375 g, [facility] [place] [facility] n-tazobacta 12-11 IV ity of m (ZOSYN) 12:00: 17:48 [place], [place] injection 00 :24 Q6H, First Medi jose c 3.375 g dose on Branch Fri12/11/20 at 0600, Until Discontinu ed, KAHLIL
Re ason for Anti-Infec tive: Empiric Therapy for Suspected Infection< br>Empiric Therapy Site: Skin / Soft tissue
Duration of therapy: 72 hours sennosides- Yes [id number] 1{tbl} Take 1 [facility] [place] [facility] docusate 2-09 tablet by ity of sodium 00:00: mouth 2 [place] 8.6-50 mg 00 (two) Medical per tablet times Branch daily. hydrocortis Yes [id number] Apply to [facility] [place] [facility] one 2.5 % 11-21 affected ity of cream 00:00: area(s) 2 [place] 00 (two) Medical times Branch daily. blood sugar Yes [id number] Use to [facility] [place] [facility] diagnostic 2 check ity of (FREESTYLE 00:00: blood [place] LITE 00 glucose Medical STRIPS) 4-5 times Branch strip daily. Polyethylen Yes [id number] 17g Take 1 Univers e Glycol 2-09 Packet by ity of 3350 17 00:00: mouth [place] gram powder 00 every 24 Medi jose c (twenty-fo Branch ur) hours as needed for Constipati on. sennosides- Yes [id number] 1{tbl} Take 1 Univers docusate 2-09 tablet by ity of sodium 00:00: mouth 2 [place] 8.6-50 mg 00 (two) Medical per tablet times Branch daily. hydrocortis Yes [id number] Apply to Univers one 2.5 % 2-09 affected ity of cream 00:00: area(s) 2 [place] 00 (two) Medical times Branch daily. blood sugar Yes [id number] Use to Univers diagnostic 11-21 check ity of (FREESTYLE 00:00: blood [place] LITE 00 glucose Medical STRIPS) 4-5 times Branch strip daily. Polyethylen Yes [id number] 17g Take 1 Univers e Glycol 2-09 Packet by ity of 3350 17 00:00: mouth [place] gram powder 00 every 24 Medi jose c (twenty-fo Branch ur) hours as needed for Constipati on. sennosides- Yes [id number] 1{tbl} Take 1 Univers docusate 2-09 tablet by ity of sodium 00:00: mouth 2 [place] 8.6-50 mg 00 (two) Medical per tablet times Branch daily. hydrocortis Yes [id number] Apply to Univers one 2.5 % 2-09 affected ity of cream 00:00: area(s) 2 [place] 00 (two) Medical times Branch daily. blood sugar Yes [id number] Use to Univers diagnostic 11-21 check ity of (FREESTYLE 00:00: blood [place] LITE 00 glucose Medical STRIPS) 4-5 times Branch strip daily. Polyethylen 2020-0 Yes [id number] 17g Take 1 Univers e Glycol 2-09 Packet by ity of 3350 17 00:00: mouth [place] gram powder 00 every 24 Medi jose c (twenty-fo Branch ur) hours as needed for Constipati on. sennosides- Yes [id number] 1{tbl} Take 1 Univers docusate 2-09 tablet by ity of sodium 00:00: mouth 2 [place] 8.6-50 mg 00 (two) Medical per tablet times Branch daily. hydrocortis Yes [id number] Apply to [facility] [place] [facility] one 2.5 % 11-21 affected ity of cream 00:00: area(s) 2 [place] 00 (two) Medical times Branch daily. blood sugar Yes [id number] Use to [facility] [place] [facility] diagnostic 11-21 check ity of (FREESTYLE 00:00: blood [place] LITE 00 glucose Medical STRIPS) 4-5 times Branch strip daily. Polyethylen Yes [id number] 17g Take 1 Univers e Glycol 11-21 Packet by ity of 3350 17 00:00: mouth [place] gram powder 00 every 24 Medi jose c (twenty-fo Branch ur) hours as needed for Constipati on. Insulin 2020- No [id number] 15U inject 15 Univers Glargine 11-21- Units ity of (LANTUS 00:00: 05:59 under the [employer] SOLOSTAR 00 :00 skin every Medic al U-100 morning Branch INSULIN) for 30 100 unit/mL days. (3 mL) injection venlafaxine 2020- No [id number] 150mg Take 1 Univers XR 150 mg 11-21 capsule by ity of 24 hr 00:00: 05:59 mouth 3 [place] capsule 00 :00 (three) Medical times Branch daily for 30 days. Insulin 2020- No [id number] 15U inject 15 Univers Glargine 11-21-12 Units ity of (LANTUS 00:00: 05:59 under the [employer] SOLOSTAR 00 :00 skin every Medic al U-100 morning Branch INSULIN) for 30 100 unit/mL days. (3 mL) injection venlafaxine 2020- No [id number] 150mg Take 1 Univers XR 150 mg 11-21- capsule by ity of 24 hr 00:00: 05:59 mouth 3 [place] capsule 00 :00 (three) Medical times Branch daily for 30 days. triamcinolo 2020- No [id number] Apply to [facility] [place] [facility] ne 11-21-04 area(s) 2 ity of acetonide 00:00: 00:00 (two) [place] 0.1 % cream 00 :00 times Medical daily. Branch cephALEXin 2020- No [id number] 1000mg Take 2 Univers 500 mg 11-21 capsules ity of capsule 00:00: 00:00 by mouth 3 [place] 00 :00 (three) Medical times Branch daily. doxycycline 2020- No [id number] 100mg Take 1 Univers hyclate 100 11-21 capsule by i ty of mg capsule 00:00: 00:00 mouth [place] 00 :00 every 12 Medical (twelve) Branch hours. lactobacill 2020- No [id number] 1{tbl} Take 1 Univers us 11-21 tablet by ity of acidophilus 00:00: 00:00 mouth 2 [place] 25 million 00 :00 (two) Medical cell -100 times Branch mg captab daily. bisacodyL 2020- No [id number] 10mg Insert 1 Univers 10 mg 11-21 Suppositor ity of suppository 00:00: 00:00 y into [place] 00 :00 rectum at Medical bedtime as Branch needed for Constipati on. ALPRAZolam 2020- No [id number] .25mg Take 1 Univers (XANAX) 11-21 tablet by ity of 0.25 mg 00:00: 00:00 mouth 2 [place] tablet 00 :00 (two) Medical times Branch daily. hydrOXYzine 2020- No [id number] 20mg Take 2 Univers 10 mg 11-21 [...] 3 ity of 6 mg 01:13: (three) [place] capsule 36 times Medical daily. Branch Insulin 2019-10 Yes 15U inject 15 Unive rs Glargine 1-12 Units ity of (LANTUS 01:13: under the [place] SOLOSTAR) 36 skin. Medical 100 unit/mL Branch (3 mL) InPn INSULIN 2019-10 Yes 5U inject 5 Univer s ASPART 1-12 Units ity of (NOVOLOG 01:13: under the [facility] FLEXPEN SC) 36 skin. Medical [...] 3 ity of 6 mg 01:13: (three) [place] capsule 36 times Medical daily. Branch Insulin 2019-10 Yes 15U inject 15 Unive rs Glargine 1-12 Units ity of (LANTUS 01:13: under the [place] SOLOSTAR) 36 skin. Medical 100 unit/mL Branch (3 mL) InPn INSULIN 2019-10 Yes 5U inject 5 Univer s ASPART 1-12 Units ity of (NOVOLOG 01:13: under the [facility] FLEXPEN SC) 36 skin. Medical [...] Units ity of (LANTUS 01:13: under the [place] SOLOSTAR) 36 skin. Medical 100 unit/mL Branch (3 mL) InPn INSULIN 2019-10 Yes 5U inject 5 Univer s ASPART 1-12 Units ity of (NOVOLOG 01:13: under the [facility] s FLEXPEN SC) 36 skin. Medical Branch ALPRAZolam 2019-10 Yes .25mg Take 0.25 U nivers (XANAX) 1-12 mg by ity of 0.25 mg 01:13: mouth 2 [place] tablet 36 (two) Medical times Branch daily. HYDROXYZINE 2019-10 2020- No 25mg Take 25 mg Univers PAMOATE 1-11 11-11 by mouth ity of ORAL 20:04: 00:00 daily. [place] 34 :00 Medical Branch hydrocortis 2019-10 Yes [id number] Apply to Univers one 2.5 % 1-11 affected ity of cream 00:00: area(s) 2 [place] 00 (two) Medical times Branch daily. hydrOXYzine 2019-10 Yes [id number] 20mg Take 2 Univers 10 mg 1-11 tablets by ity of tablet 00:00: mouth [place] 00 every 8 Medical (eight) Branch hours as needed for Itching or Anxiety. Polyethylen 2019-10 Yes [id number] 17g Take 1 Univers e Glycol 1-11 Packet by ity of 3350 17 00:00: mouth [place] gram powder 00 every 24 Medi jose c (twenty-fo Branch ur) hours as needed for Constipati on. hydrocortis 2019-10 Yes [id number] Apply to Univers one 2.5 % 1-11 affected ity of cream 00:00: area(s) 2 [place] 00 (two) Medical times Branch daily. hydrOXYzine 2019- Yes [id number] 20mg Take 2 Univers 10 mg 1-11 tablets by ity of tablet 00:00: mouth [place] 00 every 8 Medical (eight) Branch hours as needed for Itching or Anxiety. Polyethylen 2019- Yes [id number] 17g Take 1 Univers e Glycol 1-11 Packet by ity of 3350 17 00:00: mouth [place] gram powder 00 every 24 Medi jose c (twenty-fo Branch ur) hours as needed for Constipati on. hydrocortis 2019- Yes [id number] Apply to Univers one 2.5 % 1-11 affected ity of cream 00:00: area(s) 2 [place] (two) Medical times Branch daily. hydrOXYzine 2019-10 Yes [id number] 20mg Take 2 Univers 10 mg 1-11 tablets by ity of tablet 00:00: mouth [place] 00 every 8 Medical (eight) Branch hours as needed for Itching or Anxiety. Polyethylen 2019- Yes [id number] 17g Take 1 Univers e Glycol 1-11 Packet by ity of 3350 17 00:00: mouth [place] gram powder 00 every 24 Medi jose c (twenty-fo Branch ur) hours as needed for Constipati on. hydrocortis 2019-10 Yes [id number] Apply to Univers one 2.5 % 1-11 affected ity of cream 00:00: area(s) 2 [place] (two) Medical times Branch daily. hydrOXYzine 2019-10 Yes [id number] 20mg Take 2 Univers 10 mg 1-11 tablets by ity of tablet 00:00: mouth [place] 00 every 8 Medical (eight) Branch hours as needed for Itching or Anxiety. Polyethylen 2019-10 Yes [id number] 17g Take 1 Univers e Glycol 1-11 Packet by ity of 3350 17 00:00: mouth [place] gram powder 00 every 24 Medi jose c (twenty-fo Branch ur) hours as needed for Constipati on. hydrocortis 2019-10 Yes [id number] Apply to Univers one 2.5 % 1-11 affected ity of cream 00:00: area(s) 2 [place] 00 (two) Medical times Branch daily. hydrOXYzine 2019-10 Yes [id number] 20mg Take 2 Univers 10 mg 1-11 tablets by ity of tablet 00:00: mouth [place] 00 every 8 Medical (eight) Branch hours as needed for Itching or Anxiety. Polyethylen 2019- Yes [id number] 17g Take 1 Univers e Glycol 1-11 Packet by ity of 3350 17 00:00: mouth [place] gram powder 00 every 24 Medi jose c (twenty-fo Branch ur) hours as needed for Constipati on. hydrocortis 2019-10 Yes [id number] Apply to Univers one 2.5 % 1-11 affected ity of cream 00:00: area(s) 2 [place] 00 (two) Medical times Branch daily. hydrOXYzine 2019- Yes [id number] 20mg Take 2 Univers 10 mg 1-11 tablets by ity of tablet 00:00: mouth [place] 00 every 8 Medical (eight) Branch hours as needed for Itching or Anxiety. Polyethylen 2019- Yes [id number] 17g Take 1 Univers e Glycol 1-11 Packet by ity of 3350 17 00:00: mouth [place] gram powder 00 every 24 Medi jose c (twenty-fo Branch ur) hours as needed for Constipati on. hydrocortis 2019- Yes [id number] Apply to Univers one 2.5 % 1-11 affected ity of cream 00:00: area(s) 2 [place] 00 (two) Medical times Branch daily. hydrOXYzine 2019- Yes [id number] 20mg Take 2 Univers 10 mg 1-11 tablets by ity of tablet 00:00: mouth [place] 00 every 8 Medical (eight) Branch hours as needed for Itching or Anxiety. Polyethylen 2019- Yes [id number] 17g Take 1 Univers e Glycol 1-11 Packet by ity of 3350 17 00:00: mouth [place] gram powder 00 every 24 Medi jose c (twenty-fo Branch ur) hours as needed for Constipati on. triamcinolo 2019- 2020- No [id number] Apply to Univers ne 10-23 area(s) 2 ity of acetonide 00:00: 05:59 (two) [place] 0.1 % cream 00 :00 times Medical daily for Branch 14 days. triamcinolo 2019- 2020- No [id number] Apply to Univers ne 10-23 area(s) 2 ity of acetonide 00:00: 05:59 (two) [place] 0.1 % cream 00 :00 times Medical daily for Branch 14 days. triamcinolo 2020- 2020- No [id number] Apply to [facility] [place] [facility] ne 10-23 area(s) 2 ity of acetonide 00:00: 05:59 (two) [place] 0.1 % cream 00 :00 times Medical daily for Branch 14 days. KCL 2019- 2020- No 40meq 40 mEq, Univers (KLOR-CON 1-10 11-10 Oral, ONCE ity of M20) tablet 16:15: 16:23 NOW, 1 [place] 40 mEq 00 :00 dose, [facility] 08/22/20 Branch at 1015, Routine HYDROmorpho 2019-10 Yes 1mg 1 mg, Unive rs ne 1-10 Oral, ity of (DILAUDID) 15:07: Q6HPRN, [place] tablet 1 mg 53 Starting [facility] 08/22/20 at 0907, Until Discontinu ed, Routine, Pain (scale 7-10) hydrocortis 2019-10 Yes Topical Uni vers one 2.5 % 1-10 (Apply To ity o f cream 02:00: Affected [place] 00 Areas), Medical BID, First Branch dose on [facility] 08/21/20 at 2000, Until Discontinu ed, Routine triamcinolo 2019-10 Yes Topical, Un toi ne 1-10 BID, First ity of acetonide 02:00: dose on [place] (TRIDERM) [facility] Medical 0.1 % cream 08/21/20 at Br anch 2000, Until Discontinu ed, Routine hydrOXYzine 2019-10 Yes 20mg 20 mg, Univ ers (ATARAX) 09 Oral, ity of tablet 20 17:39: Q8HPRN, [place] mg 12 Starting [facility] 08/21/20 at 1139, Until Discontinu ed, Routine, Itching, Anxiety sennosides- 2019-10 Yes 1{tbl} 1 tablet, Univers docusate 10-21 Oral, ity of sodium 15:00: DAILY, [place] (SENOKOT-S) 00 First dose Me dical 8.6-50 mg on [facility] per tablet 08/21/20 at 1 tablet 0900, [...] :43 Starting Medica l mg [facility] 08/21/20 at 0656, Until Fri08/21/20 at 1139, Routine, Itching, Mild Rash, Congestion /Allergies , alternate with hydroxyzin e hydrOXYzine 2019-10- No 10mg 10 mg, Uni vers (ATARAX) 10-21 Oral, ity of tablet 10 10:20: 12:57 Q6HPRN, [place] mg 22 :12 Starting Medical [facility] 08/21/20 at 0420, Until Fri08/21/20 at 0657, [...] 1 ity o f 09:30: 09:14 dose, [facility] 00 :00 08/21/[address] [facility] 0330, Branch Routine Polyethylen 2019-10 Yes 17g 17 g, [facility] Glycol 10-21 Oral, ity of 3350 08:29: [id number], [place] (MIRALAX) 09 Starting Medica l powder 17 g [facility] 08/21/20 at 0229, Until Discontinu ed, Routine, Constipati on lanolin 2019-10 Yes Topical, Univer s alcohol-mo- 10-21 PRN, ity of w.pet-ceres 08:26: [place] (EUCERIN[place] 30 [facility] Medical cream 08/21/20 at Branch [...] 1-3) sotalol 2019-10 2020- No Take by [facility] s (BETAPACE) 10-21 mouth ity of 240 mg 07:43: 00:00 every 12 [place] tablet 30 :00 (twelve) Medical hours. Branch blood sugar Yes Use to [facility] ers diagnostic 4-25 check ity of (FREESTYLE 00:00: blood [place] LITE 00 glucose Medical STRIPS) 4-5 times Branch strip daily. blood sugar Yes Use to [facility] ers diagnostic 4-25 check ity of (FREESTYLE 00:00: blood [place] LITE 00 glucose Medical STRIPS) 4-5 times Branch strip daily. blood sugar Yes Use to [facility] ers diagnostic 4-25 check ity of (FREESTYLE 00:00: blood [place] LITE 00 glucose Medical STRIPS) 4-5 times Branch strip daily. blood sugar Yes Use to [facility] ers diagnostic 4-25 check ity of [...] 2021-08-22 13:00:00 148 mm[Hg] Univer sity of [facility] Diastolic blood 2021-08-22 13:00:00 84 mm[Hg] Unive rsity of [facility] Heart rate 2021-08-22 13:00:00 103 /min [facility] Respiratory rate 2021-08-22 13:00:00 18 /min [facility] Oxygen saturation in 2021-08-22 13:00:00 95 /min University of Arterial blood by [facility] Pulse oximetry [place] Body temperature 2021-08-22 12:22:00 36.72 [place] [facility] Systolic blood 2020-12-17 18:35:00 139 mm[Hg] Univer sity of [facility] Diastolic blood 2020-12-17 18:35:00 87 mm[Hg] Unive rsity of [facility] Heart rate 2020-12-17 18:35:00 110 /min [facility] Body temperature 2020-12-17 18:35:00 37.72 [place] [facility] Respiratory rate 2020-12-17 18:35:00 18 /min [facility] O[facility] saturation in 2020-12-17 18:35:00 93 /min University of Arterial blood by [facility] Pulse oximetry Branch Body height 2020-12-12 08:21:00 180.3 cm [facility] [place] [facility] Body weight 2020-12-12 08:21:00 103.42 kg [facility] [place] [facility] BMI 2020-12-12 08:21:00 31.80 kg/m2 [facility] [place] [facility] Systolic blood 2020-12-17 18:35:00 139 mm[Hg] Univer sity of pressure [place] [facility] Diastolic blood 2020-12-17 18:35:00 87 mm[Hg] Unive rsity of pressure [place] [facility] Heart rate 2020-12-17 18:35:00 110 /min [facility] [place] [facility] Body temperature 2020-12-17 18:35:00 37.72 [place] Univ ers[facility] [place] [facility] Respiratory rate 2020-12-17 18:35:00 18 /min Univ ersity [facility] [place] [facility] Oxygen saturation in 2020-12-17 18:35:00 93 /min University of Arterial blood by [facility] Pulse oximetry Branch Body height 2020-12-12 08:21:00 180.3 cm [facility] [place] [facility] Body weight 2020-12-12 08:21:00 103.42 kg [facility] [place] [facility] BMI 2020-12-12 08:21:00 31.80 kg/m2 [facility] [place] [facility] Systolic blood 2020-08-23 19:27:00 140 mm[Hg] Univer sity of pressure [place] [facility] Diastolic blood 2020-08-23 19:27:00 79 mm[Hg] Unive rsity of pressure [place] [facility] Heart rate 2020-08-23 19:27:00 99 /min [facility] [place] [facility] Body temperature 2020-08-23 19:27:00 36 [place] Univ [facility] [place] [facility] Respiratory rate 2020-08-23 19:27:00 18 /min Univ ers[facility] [place] [facility] Oxygen saturation in 2020-08-23 19:27:00 93 /min University of Arterial blood by [facility] Pulse oximetry Branch Body weight 2020-08-21 07:20:00 104.962 kg [facility] [place] [facility] BMI 2020-08-21 07:20:00 32.27 kg/m2 [facility] [place] [facility] Systolic blood 2020-08-23 19:27:00 140 mm[Hg] Univer sity of pressure [facility] Diastolic blood 2020-08-23 19:27:00 79 mm[Hg] [facility] Heart rate 2020-08-23 19:27:00 99 /min [facility] Body temperature 2020-08-23 19:27:00 36 [place] [facility] Respiratory rate 2020-08-23 19:27:00 18 /min [facility] Oxygen saturation in 2020-08-23 19:27:00 93 /min [facility] blood by [facility] Pulse oximetry [place] Body weight 2020-08-21 07:20:00 104.962 kg [facility] BMI 2020-08-21 07:20:00 32.27 kg/m2 [facility] Procedures Procedure Date / Time Performing Clinician Source Performed POCT GLUCOSE (AUTOMATED) 2020-12-17 15:42:00 Favio Harrisonal G Uni [facility] BASIC METABOLIC PANEL 2020-12-17 10:45:00 Paul Bean [facility] (NA, K, CL, CO2, GLUCOSE, Kaley Medica l Branch BUN, CREATININE, CA) CBC WITH DIFF 2020-12-17 10:45:00 Paul Bean [facility] POCT GLUCOSE (AUTOMATED) 2020-12-17 02:36:00 Harrison [facility] Uni [facility] XR TIBIA FIBULA 2 VW LEFT 2020-12-16 23:38:00 [facility] (AUTOMATED) 2020-12-16 23:20:00 Harrison, Premal [facility] PO[facility] GLUCOSE (AUTOMATED) 2020-12-16 20:10:00 Harrison, Premal [facility] POCT GLUCOSE (AUTOMATED) 2020-12-16 14:43:00 [facility] BASIC METABOLIC PANEL 2020-12-16 13:51:00 Paul Bean [facility] (NA, K, CL, CO2, GLUCOSE, [place] Medica l Branch BUN, CREATININE, CA) CBC WITH DIFF 2020-12-16 13:51:00 Paul Bean [facility] POCT GLUCOSE (AUTOMATED) 2020-12-16 04:00:00 Harrison, Premal G Uni versity of [facility] POCT GLUCOSE (AUTOMATED) 2020-12-16 00:14:00 Harrison, Premal G Uni versity [facility] CHEST PULMONARY 2020-12-15 22:29:38 Paul Bean [facility] ANGIOGRAM [facility] POCT GLUCOSE (AUTOMATED) 2020-12-15 19:26:00 Harrison, [facility]al [facility] POCT GLUCOSE (AUTOMATED) 2020-12-15 15:13:00 Krupa, Premal G Uni [facility] HB ECG ROUTINE & RHYTHM 2020-12-15 14:25:27 Cailin Romo [facility] MAGNESIUM 2020-12-15 12:01:00 Paul Bean Sivakumar [facility] BASIC METABOLIC PANEL 2020-12-15 12:01:00 Paul Bean [facility] (NA, K, CL, CO2, GLUCOSE, [place] Med[facility] l Branch BUN, CREATININE, CA) CBC WITH DIFF 2020-12-15 12:01:00 Paul Bean [facility] POCT GLUCOSE (AUTOMATED) 2020-12-15 03:57:00 Harrison, Premal G Uni versity of [facility] POCT GLUCOSE (AUTOMATED) 2020-12-14 23:31:00 Harrison, Premal G Uni versity of [facility] POCT GLUCOSE (AUTOMATED) 2020-12-14 19:08:00 Harrison, Premal G Uni versity of [facility] POCT GLUCOSE (AUTOMATED) 2020-12-14 15:11:00 Harrison, Premal G Uni versity of [facility] POCT GLUCOSE (AUTOMATED) 2020-12-14 02:36:00 Harrison, Premal G Uni versity of [facility] POCT GLUCOSE (AUTOMATED) 2020-12-13 23:32:00 Harrison, Premal G Uni versity of [facility] POCT GLUCOSE (AUTOMATED) 2020-12-13 18:08:00 Harrison, Premal G Uni versity of [facility] BASIC METABOLIC PANEL 2020-12-13 15:39:00 Paul Bean [facility] (NA, K, CL, CO2, GLUCOSE, [place] Med[facility] Branch BUN, CREATININE, CA) CBC WITH DIFF 2020-12-13 15:39:00 Paul Bean [facility] POCT GLUCOSE (AUTOMATED) 2020-12-13 14:06:00 Harrison, Premal G Uni versity of [facility] POCT GLUCOSE (AUTOMATED) 2020-12-13 03:07:00 Harrison, Premal G Uni versity of [facility] POCT GLUCOSE (AUTOMATED) 2020-12-12 23:52:00 Harrison, Premal G Uni versity of [facility] POCT GLUCOSE (AUTOMATED) 2020-12-12 20:28:00 Harrison, Premal G Uni versity of [facility] POCT GLUCOSE (AUTOMATED) 2020-12-12 19:14:00 Harrison, Premal G Uni versity of [facility] POCT GLUCOSE (AUTOMATED) 2020-12-12 14:33:00 Harrison, Premal G Uni versity of [facility] MAGNESIUM 2020-12-12 08:58:00 [facility] [...] of [facility] POCT GLUCOSE (AUTOMATED) 2020-12-12 00:06:00 Harrison, Premal G Uni versity of [facility] XR HIPS 3 VW LEFT 2020-12-11 20:20:00 Paul Bean Sivakumar [facility] HB ECG ROUTINE & RHYTHM 2020-12-11 20:04:06 Demetrius [facility] STRIP [facility] VITAMIN B6, PLASMA 2020-12-11 19:17:00 [facility] POCT GLUCOSE (AUTOMATED) 2020-12-11 19:06:00 Vika [facility] CREATINE KINASE 2020-12-11 18:22:00 Parvez [facility] VITAMIN B12, LEVEL 2020-12-11 18:22:00 Vikas [facility] FOLATE 2020-12-11 18:22:00 [facility] THYROID STIMULATING 2020-12-11 18:22:[address] [facility] HORMONE [facility] PROCALCITONIN 2020-12-11 18:22:00 Vikas [facility] VITAMIN B1 (THIAMINE), 2020-12-11 [facility] HEAD WO CONTRAST 2020-12-11 14:07:35 Sweetie Stout [facility] URINALYSIS 2020-12-11 13:44:00 Singer [facility] URINE CULTURE 2020-12-11 13:44:00 Singer [facility] COVID-19 (ID NOW RAPID 2020-12-11 12:31:00 Paco Lacey [facility] TESTING) Medical Branch LAB ONLY COVID 2020-12-11 12:31:00 Singer [facility] INTERPRETATION [facility] XR CHEST 1 VW 2020-12-11 12:07:24 Singer [facility] BLOOD CULTURE SCREEN 2020-12-11 12:02:00 Paco Lacey [facility] MAGNESIUM 2020-12-11 12:02:00 Vikas [facility] FERRITIN SERUM 2020-12-11 12:02:00 Paul Bean [facility] Kaley [facility] COMP. METABOLIC PANEL 2020-12-11 12:02:00 Singer [facility] ([id number]) [facility] CBC WITH DIFF 2020-12-11 12:02:00 Singer [facility] LACTIC ACID WHOLE BLOOD 2020-12-11 12:02:00 Singer Paco [facility] BLOOD CULTURE SCREEN 2020-12-11 11:42:00 Singer Paco [facility] EMERGENCY SERVICES 2020-12-11 06:01:00 Doctor Unassigned, [facility] AGREEMENTS AND [place] [place] AUTHORIZATIONS HOSPITAL ADMISSION 2020-12-11 06:01:00 Doctor Unaowen, [facility] Name Medical [place] HOME HEALTH - OTHER 2020-11-11 06:01:00 Doctor Tabitha [facility] Name Medical [place] HOME HEALTH - OTHER 2020-10-30 06:01:00 Doctor Unaowen [facility] Name Medical [place] EXTERNAL PROVIDER RECORDS 2020-09-01 06:01:00 Doctor Tabitha, [facility] Name [facility] POCT GLUCOSE (AUTOMATED) 2020-08-23 18:09:00 Kelly Washington [facility] POCT GLUCOSE (AUTOMATED) 2020-08-23 14:14:00 Kelly Washington [facility] MAGNESIUM 2020-08-23 11:18:00 Ramya [facility] BASIC METABOLIC PANEL 2020-08-23 11:18:00 Hebron [facility] (NA, K, CL, CO2, GLUCOSE, Medica l Branch BUN, CREATININE, CA) CBC WITH DIFF 2020-08-23 11:18:00 Hebron [facility] POCT GLUCOSE (AUTOMATED) 2020-08-23 10:21:00 Kelly Washington [facility] POCT GLUCOSE (AUTOMATED) 2020-08-23 05:55:00 Kelly Washington [facility] POCT GLUCOSE (AUTOMATED) 2020-08-23 03:00:00 Stefania [facility]SE (AUTOMATED) 2020-08-22 23:38:00 Bety Washingtonmarie Elias versity of [facility] POCT GLUCOSE (AUTOMATED) 2020-08-22 19:04:00 Bety Washingtonmarie [facility] POCT GLUCOSE (AUTOMATED) 2020-08-22 13:49:00 Kelly Washington Jada versity [facility] [place] [facility] MAGNESIUM 2020-08-22 10:10:00 [facility] 2020-08-22 10:10:00 Aguila Melchor [facility] ([id number]) (ALB,T.PRO,BILI Medical Branch T,BU/BC,ALT,AST,ALK PHOS) BASIC METABOLIC PANEL 2020-08-22 10:10:00 [facility] (NA, K, CL, CO2, GLUCOSE, Medica l Branch BUN, CREATININE, CA) LIPID PANEL ([id number])(TOTAL 2020-08-22 10:10:00 [place], [facility] CHOLESTEROL, Medical [place] TRIGLYCERIDES, HDL) CBC WITH DIFF 2020-08-22 10:10:00 [facility] POCT GLUCOSE (AUTOMATED) 2020-08-22 10:10:00 Bety Washingtonmarie Elias [facility] POCT GLUCOSE (AUTOMATED) 2020-08-22 07:13:00 Kelly Washington Jada versity [facility] [place] [facility] POCT GLUCOSE (AUTOMATED) 2020-08-22 02:24:00 Bety Washingtonmarie Elias versity [facility] [place] [facility] POCT GLUCOSE (AUTOMATED) 2020-08-21 23:40:00 Kelly Washington Jada versity of [facility] POCT GLUCOSE (AUTOMATED) 2020-08-21 18:10:00 Kelly Washington Jada versity [facility] [place] [facility] POCT GLUCOSE (AUTOMATED) 2020-08-21 13:39:00 Kelly Washington Jada versity [facility] [place] [facility] ETHANOL 2020-08-21 12:35:00 [facility] ACTIVATED PARTIAL 2020-08-21 12:35:00 Stefania [facility] GALV ONLY - SYPHILIS 2020-08-21 12:35:00 Stefania [facility] IGG/IGM [facility] LACTATE DEHYDROGENASE 2020-08-21 10:09:00 Ramya, [facility] GALV[facility]CLC ONLY - URINE 2020-08-21 10:09:00 Richie [facility] DRUG (IMMUNOASSAY) - 4 ER Medica l Branch PANEL URINALYSIS 2020-08-21 10:09:00 Ramya, [facility] URINE CULTURE 2020-08-21 10:09:00 Ramya, [facility] PROCALCITONIN 2020-08-21 10:09:00 [place], [facility] POCT GLUCOSE (AUTOMATED) 2020-08-21 09:41:00 Stefania Kelly [facility] PROTHROMBIN TIME / INR 2020-08-21 08:32:00 [place], [facility] ACTIVATED PARTIAL 2020-08-21 08:32:00 [place], [facility] C-REACTIVE PROTEIN 2020-08-21 08:31:00 Ramya, [facility] HEPATIC FUNCTION PANEL 2020-08-21 08:31:00 [place], [facility] ([id number]) (ALB,T.PRO,BILI Medical Branch T,BU/BC,ALT,AST,ALK PHOS) BASIC METABOLIC PANEL 2020-08-21 08:31:00 [place], [facility] (NA, K, CL, CO2, GLUCOSE, [facility] BUN, CREATININE, CA) SEDIMENTATION RATE 2020-08-21 08:31:00 [place], [facility] CBC WITH DIFF 2020-08-21 08:31:00 [place], [facility] GLYCOSYLATED HEMOGLOBIN 2020-08-21 08:31:00 [place], [facility] (A1C) Medical Branch HIV 1/2 AG-AB WITH REFLEX 2020-08-21 08:31:00 Kelly [place] [facility] [place] [facility] COVID-19 (ID NOW RAPID 2020-08-21 08:20:00 [facility] [place] TESTING) Medical Branch LAB ONLY COVID 2020-08-21 08:20:00 [place] [facility] [place] INTERPRETATION [facility] Branch Encounters Start End Encounter Admission Attending Care Care Encounter Source Date/Time Date/Time Type Type Clinicians Facility Department ID 2020-08-21 Inpatient U STEFANIA [facility] [id number] Univers 01:07:[address] [facility] 2021-08-22 2021-08-22 Emergency [facility] [id number] Univers 06:21:00 08:02:[address] [facility] 2021-08-22 2021-08-22 Emergency [facility] [id number] Univers 06:21:00 08:02:00 Sweetie LOTT [id number] i ty [place] [id number] [facility] 084 Branch 2021-08-09 2021-08-09 Outpatient JACQUELYN HAINES [facility] [id number] [employer] 10:27:03 10:27:03 ADRIANA lopez of Medicin e 2020-12-28 2020-12-28 Telephone [facility] [id number] 00:00:00 00:00:00 Calvin H PRIMARY [id number] CARE 4.2.7.2.686 PAVILLION [id number] 220 2020-12-28 2020-12-28 Telephone [facility] [id number] Univers 00:00:00 00:00:00 Calvin H PRIMARY [id number] it y of C[place] 4[place]2.7.2.[place] [id number] Ms dical 220 Branch 2020-12-19 2020-12-19 Transition Tuan Peters [id number] 00:00:00 00:00:00 of Care Ruchi Braswell [id number] [place] 4.2.7.2.686 [id number] 2020-12-19 2020-12-19 Transition Tuan Peters 1.2.840.114 [id number] Univers 00:00:00 00:00:00 of Care Ruchi Braswell [id number] it y of [place] 4[place]2.7.2.[place] [id number] [facility] 403 Branch 2020-12-11 2020-12-17 [facility] Paco Lacey 1.2.840.1 [id number] 05:11:00 16:00:00 Encounter Vika [place] [id number] [facility] 4.2.7.2.686 [id number] [facility] 2020-12-11 2020-12-17 [facility] Paco Lacey 1.2.840.1 [id number] [facility] [place] [facility] 05:11:00 16:00:00 Encounter Vika Harrison [place] [id number] ity [facility] 4.2.7.[address] [place] [address] [id number] [facility] 096 Branch 2020-12-11 2020-12-17 Inpatient X [facility] [id number] Univers 05:11:00 16:00:[address] [facility] 2020-11-16 2020-11-16 Emergency [facility] [id number] [facility] [place] [facility] 09:31:00 09:31:[address] [facility] 2020-11-11 2020-11-11 Orders Doctor CUI 1.2.840.114 [id number] 00:00:00 00:00:00 Only UnassignedMONIQUE [id number] [place] [facility] 4.2.7.2.686 [id number] 2020-11-11 2020-11-11 Orders Doctor CUI 1.2.840.114 [id number] [facility] [place] [facility] 00:00:00 00:00:00 Only Unassigned, MONIQUE [id number] ity of [place] [facility] 4.2.7.2.686 Jeff as [id number] [address] 2020-11-07 2020-11-07 [facility] [id number] 00:00:00 00:00:00 Angi Lott [id number] [place] 4.2.7.2.686 Professio [id number] [address] 2020-11-07 2020-11-07 Telephone [facility] [id number] [facility] [place] [facility] 00:00:00 00:00:00 Angi Lott 350.1.13.10 ity of [place].7.2.[place] Profess[place] [phone] Ms dic[address] 2020-10-30 2020-10-30 Orders Doctor BASILIA 1.2.840.114 [id number] 00:00:00 00:00:00 Only Unassigned, MONIQUE 350.1.13.10 [place] [facility] 4.2.7.2.686 [id number] [facility] 2020-10-30 2020-10-30 Orders Doctor BASILIA 1.2.840.114 [id number] [facility] 00:00:00 00:00:00 Only Unassigned, MONIQUE 350.1.13.10 ity of [place] [facility] 4.2.7.2.686 Jeff as [id number] [address] 2020-09-26 2020-09-26 Telephone Eliot [facility] 1.2.840.114 [id number] 00:00:00 00:00:00 [facility] [id number] CLINICS 4.2.7.2.686 [id number] [facility] 2020-09-26 2020-09-26 Telephone Eliot [facility] 1.2.840.114 [id number] [facility] 00:00:00 00:00:00 [facility] [id number] i ty of CLINICS [place]2.[place] [id number] [address] 2020-09-01 2020-09-01 Orders Doctor BASILIA 1.2.840.114 [id number] 00:00:00 00:00:00 Only Unassigned, MONIQUE 350.1.13.10 [place] [facility] 4.2.7.2.686 [id number] [id number] 2020-09-01 2020-09-01 Orders Doctor BASILIA 1.2.840.114 [id number] Univers 00:00:00 00:00:00 Only Unassigned, MONIQUE 350.1.13.10 ity of [place] [facility] 4.2.7.2.686 Jeff as [id number] [facility] 009 Branch 2020-08-25 2020-08-25 Transition Tuan Peters 1.2.840.114 [id number] 00:00:00 00:00:00 of Care Ruchi Braswell 350.1.13.10 [place] 4.2.7.2.686 [id number] 2020-08-25 2020-08-25 Transition Tuan Peters 1.2.840.114 [id number] Univers 00:00:00 00:00:00 of Care Ruchi Braswell 350.1.13.10 it y of [place] 4.2.7.2.[place] [id number] [facility] 403 [place] 2020-08-21 2020-08-23 [facility] Ayleen 1.2.840.114 [id number] 01:07:00 18:35:00 Encounter Kelly Monique 350.1.13.10 [facility] 4.2.7.2.686 [id number] [facility] 2020-08-21 2020-08-23 [facility] 1. 2.840.114 [id number] [facility] 01:07:00 18:35:00 Encounter Mukul Gallardo 350.1.13. 10 ity of [facility] 4.2.7.2.686 Jeff as [id number] [address] Results Test Description Test Time Test Comments Results Result Comments Source POCT GLUCOSE (AUTOMATED) 2020-12-17 15:43:35 Test Item Value Reference Range Interpretation Comme nts POCT GLU (test code = 0836811246) 129 mg/dL 70-110 H Lab Interpretation (test code = 01717-7) [facility] (NA, K, CL, CO2, GLUCOSE, BUN, CREATININE, CA)2020-12-17 11:45:07 Test Item Value Reference Range Interpretation Comments NA (test code = 137 mmol/L 135-145 3374422616) K (test code = 3.5 mmol/L 3.5-5.0 4578286269) CL (test code = 103 mmol/L 98-108 1158526540) CO2 TOTAL (test code = 26 mmol/L 23-31 8082112075) AGAP (test code = 2-16 0033004187) BUN (test code = 11 mg/dL 7-23 4854900789) GLUCOSE (test code = 175 mg/dL 70-110 H 5625038057) CREATININE (test code = 0.62 mg/dL 0.60-1.25 5954586264) CALCIUM (test code = 9.0 mg/dL 8.6-10.6 3741761153) eGFR Calculation mL/min/1.73m2 (Non-) (test code = 5125063567) eGFR Calculation mL/min/1.73m2 () (test code = 8056172684) JAMES (test code = JAMES) Association of [...] tests). Lab Interpretation Abnormal (test code = 04339-1) [facility] WITH [id number] 11:07:27 Test Item Value Reference Range Interpretation [...] RDW-SD (test code = 45.2 fL 38.5-51.6 32808-1) RDW-CV (test code = 16.9 % 12.1-15.4 H 788-0) PLT (test code = See_Comment H [Automated 777-3) message] The sy stem which generated this result transmitted reference range : 150 - 328 10*3/ ?L. The reference r torito was not used to interpret this result as normal/abnormal . MPV (test code = 8.1 fL 9.8-13.0 L 23312-6) NRBC/100 WBC (test See_Comment [Automat ed code = 9660693165) message] The system which generated this result transmitted reference range : 0.0 - 10.0 /100 WBCs. The refer ence range was not u sed to interpret th is result as normal/abnormal . NRBC x10^3 (test code <0.01 See_Comment [Auto mated = 1537557436) message] The s ystem which generated this result transmitted reference range : 10*3/?L. The reference range was not used to interpret this result as normal/abnormal . GRAN MAT (NEUT) % 72.8 % (test code = 770-8) IMM GRAN % (test code 0.60 % = 5111092690) LYMPH % (test code = 18.4 % 736-9) MONO % (test code = 5.7 % 5905-5) EOS % (test code = 1.8 % 713-8) BASO % (test code = 0.7 % 706-2) GRAN MAT x10^3(ANC) 8.23 10*3/uL 1.99-6.95 H (test code = 9388686392) IMM GRAN x10^3 (test 0.07 10*3/uL 0.00-0.06 H code = 2845335475) LYMPH x10^3 (test code 2.08 10*3/uL 1.09-3.23 = 731-0) MONO x10^3 (test code 0.65 10*3/uL 0.36-1.02 = 742-7) EOS x10^3 (test code = 0.20 10*3/uL 0.06-0.53 711-2) BASO x10^3 (test code 0.08 10*3/uL 0.01-0.09 = 704-7) Lab Interpretation Abnormal (test code = 86232-7) [facility] 06:03:38 Test Item Value Reference Range Interpretation Comments POCT GLU (test code = 2070516886) 75 mg/dL 70-110 Lab Interpretation (test code = Normal 03927-0) [facility], [id number] 00:01:00 Test Item Value Reference Range Interpretation Comments VIT B6 (test code = 13.1 nmol/L 20.0-125.0 L INTERPRE TIVE 81476-0) INFORMATION: Vi tamin B6 (Pyridoxal 5-Phosphate) Pyridoxal 5'-phosphate me asured in a specimen collected follo wing an 8-hour or overnight fast accurately clara keene vitamin B6 nutritional sta tus. Non-fasting spe cimen concentration reflects recent vitamin intake. This test was develo ped and its perform ance characteristics determined by [facility]. I t has not been cleare d or approved by the [place] Food and Drug Administration. This test was perfor med in a CLIA certifie d laboratory and is intended for cl inical purposes.Perfor med By: [facility] [place] [id number] Director: Namrata Klein MD Lab Interpretation Abnormal (test code = 58408-7) [facility]XR TIBIA FIBULA 2 VW [id number] 23:57:09 Tricompartmental knee joint osteoarthrosis.XR TIBIA FIBULA [...] acute fracture or dislocation.IMPRESSIONTricompartmental knee joint osteoarthrosis.[facility] GLUCOSE (AUTOMATED) 2020-12-16 23:27:00 Test Item Value Reference Range Interpretation Comments POCT GLU (test code = 8575964053) 114 mg/dL 70-110 H Lab Interpretation (test code = Abnormal 06548-6) [facility] GLUCOSE (AUTOMATED)2020-12-16 20:12:00 Test Item Value Reference Range Interpretation Comments POCT GLU (test code = 2376584977) 105 mg/dL 70-110 Lab Interpretation (test code = Normal 01013-2) [facility] GLUCOSE (AUTOMATED)2020-12-16 14:44:00 Test Item Value Reference Range Interpretation Comments POCT GLU (test code = 8039227573) 153 mg/dL 70-110 H Lab Interpretation (test code = Abnormal 01254-9) [facility] METABOLIC PANEL (NA, K, CL, CO2, GLUCOSE, BUN, CREATININE, CA)2020-12-16 14:23:00 Test Item Value Reference Range Interpretation Comments NA (test code = 138 mmol/L 135-145 2379449086) K (test code = 3.4 mmol/L 3.5-5.0 L 5630102942) CL (test code = 100 mmol/L 98-108 2280213774) CO2 TOTAL (test code = 31 mmol/L 23-31 8081448224) AGAP (test code = 2-16 7051490477) BUN (test code = 11 mg/dL 7-23 1153388520) GLUCOSE (test code = 162 mg/dL 70-110 H 9334239475) CREATININE (test code = 0.64 mg/dL 0.60-1.25 8098153597) CALCIUM (test code = 8.9 mg/dL 8.6-10.6 8819252741) eGFR Calculation mL/min/1.73m2 (Non-) (test code = 7813940280) eGFR Calculation mL/min/1.73m2 () (test code = 0392869869) JAMES (test code = JAMES) Association of [...] tests). Lab Interpretation Abnormal (test code = 64878-1) [facility] WITH [id number] 14:05:00 Test Item Value Reference Range Interpretation [...] RDW-SD (test code = 45.4 fL 38.5-51.6 69750-2) RDW-CV (test code = 17.0 % 12.1-15.4 H 788-0) PLT (test code = See_Comment H [Automated 777-3) message] The sy stem which generated this result transmitted reference range : 150 - 328 10*3/ ?L. The reference r torito was not used to interpret this result as normal/abnormal . MPV (test code = 8.0 fL 9.8-13.0 L 71197-1) NRBC/100 WBC (test See_Comment [Automat ed code = 3635673005) message] The system which generated this result transmitted reference range : 0.0 - 10.0 /100 WBCs. The refer ence range was not u sed to interpret th is result as normal/abnormal . NRBC x10^3 (test code <0.01 See_Comment [Auto mated = 1704290663) message] The s ystem which generated this result transmitted reference range : 10*3/?L. The reference range was not used to interpret this result as normal/abnormal . GRAN MAT (NEUT) % 70.0 % (test code = 770-8) IMM GRAN % (test code 0.70 % = 6112455554) LYMPH % (test code = 20.5 % 736-9) MONO % (test code = 7.1 % 5905-5) EOS % (test code = 1.0 % 713-8) BASO % (test code = 0.7 % 706-2) GRAN MAT x10^3(ANC) 9.44 10*3/uL 1.99-6.95 H (test code = 9228089404) IMM GRAN x10^3 (test 0.09 10*3/uL 0.00-0.06 H code = 4846336265) LYMPH x10^3 (test code 2.76 10*3/uL 1.09-3.23 = 731-0) MONO x10^3 (test code 0.96 10*3/uL 0.36-1.02 = 742-7) EOS x10^3 (test code = 0.13 10*3/uL 0.06-0.53 711-2) BASO x10^3 (test code 0.10 10*3/uL 0.01-0.09 H = 704-7) Lab Interpretation Abnormal (test code = 71096-0) [facility] Center[facility] - Peripheral # [id number] 13:01:00 Test Item Value Reference Range Interpretation Comments Blood Culture-Aerobic No organisms No growth Previo us (test code = 27460-1) isolated prelim inary verified result was Culture In Progress on 12/11/2020 at 100 1 CSTPrevious preliminary verified result was No growth a t 24 hours on 12/12/2020 at 070 1 CSTPrevious preliminary verified result was No growth a t 48 hours on 12/13/2020 at 070 1 CSTPrevious preliminary verified result was No growth a t 72 hours on 12/14/2020 at 070 1 [facility] Blood No organisms No growth Previous Culture-Anaerobic isolated preliminar y (test code = 02685-2) verifi ed result was Culture In Progress on 12/11/2020 at 100 1 CSTPrevious preliminary verified result was No growth a t 24 hours on 12/12/2020 at 070 1 CSTPrevious preliminary verified result was No growth a t 48 hours on 12/13/2020 at 070 1 CSTPrevious preliminary verified result was No growth a t 72 hours on 12/14/2020 at 070 1 [facility] [employer] Lab Interpretation Normal (test code = 12961-3) [facility] Culture - Peripheral # [id number] 13:01:00 Test Item Value Reference Range Interpretation Comments Blood Culture-Aerobic No organisms No growth Previo us (test code = 62847-5) isolated prelim inary verified result was Culture In Progress on 12/11/2020 at 100 1 CSTPrevious preliminary verified result was No growth a t 24 hours on 12/12/2020 at 070 1 CSTPrevious preliminary verified result was No growth a t 48 hours on 12/13/2020 at 070 1 CSTPrevious preliminary verified result was No growth a t 72 hours on 12/14/2020 at 070 1 [facility] [employer] Blood No organisms No growth Previous Culture-Anaerobic isolated preliminar y (test code = 25295-5) verifi ed result was Culture In Progress on 12/11/2020 at 100 1 CSTPrevious preliminary verified result was No growth a t 24 hours on 12/12/2020 at 070 1 CSTPrevious preliminary verified result was No growth a t 48 hours on 12/13/2020 at 070 1 CSTPrevious preliminary verified result was No growth a t 72 hours on 12/14/2020 at 070 1 [facility] [employer] Lab Interpretation Normal (test code = 59589-8) [facility] GLUCOSE (AUTOMATED)2020-12-16 04:01:00 Test Item Value Reference Range Interpretation Comments POCT GLU (test code = 5776558876) 156 mg/dL 70-110 H Lab Interpretation (test code = Abnormal 31623-1) [facility]2020-12-16 00:24:00 Test Item Value Reference Range Interpretation Comments POCT GLU (test code = 1400173416) 115 mg/dL 70-110 H Lab Interpretation (test code = Abnormal 58695-6) [facility] CHEST PULMONARY [id number] 23:34:55No pulmonary emboli. No interval change in [...] of intra and extrahepatic biliary ductal dilatation.[facility] GLUCOSE (AUTOMATED)2020-12-15 19:28:00 Test Item Value Reference Range Interpretation Comments POCT GLU (test code = 5877718457) 140 mg/dL 70-110 H Lab Interpretation (test code = Abnormal 90616-8) [facility]2021-[facility]-05 15:26:00 Test Item Value Reference Range Interpretation Comments MAGNESIUM (test code = 3977545701) 2.2 mg/dL 1.7-2.4 Lab Interpretation (test code = Normal 09620-5) [facility] GLUCOSE (AUTOMATED)2020-12-15 15:15:00 Test Item Value Reference Range Interpretation Comments POCT GLU (test code = 5193163677) 181 mg/dL 70-110 H Lab Interpretation (test code = Abnormal 06739-4) [facility] METABOLIC PANEL (NA, K, CL, CO2, GLUCOSE, BUN, CREATININE, CA)2020-12-15 13:07:00 Test Item Value Reference Range Interpretation Comments NA (test code = 136 mmol/L 135-145 5860394824) K (test code = 3.6 mmol/L 3.5-5.0 8281585808) CL (test code = 96 mmol/L 98-108 L 7325679001) CO2 TOTAL (test code = 29 mmol/L 23-31 1943285543) AGAP (test code = 2-16 6826402002) BUN (test code = 12 mg/dL 7-23 8171175961) GLUCOSE (test code = 183 mg/dL 70-110 H 3033969642) CREATININE (test code = 0.70 mg/dL 0.60-1.25 0294450170) CALCIUM (test code = 9.2 mg/dL 8.6-10.6 1228273243) eGFR Calculation mL/min/1.73m2 (Non-) (test code = 8985603659) eGFR Calculation mL/min/1.73m2 () (test code = 8989370623) JAMES (test code = JAMES) Association of [...] tests). Lab Interpretation Abnormal (test code = 66281-8) [facility] WITH [id number] 12:32:00 Test Item Value Reference Range Interpretation Comments WBC (test code = See_Comment H [Automated 4790-2) message] The system which generated this result [...] RDW-SD (test code = 44.4 fL 38.5-51.6 38543-2) RDW-CV (test code = 17.7 % 12.1-15.4 H 788-0) PLT (test code = See_Comment H [Automated 777-3) message] The system which generated this result transmit ronan reference range : 150 - 328 10*3/ ?L. The reference range was not u sed to interpret th is result as normal/abnormal . MPV (test code = 8.1 fL 9.8-13.0 L 70591-6) NRBC/100 WBC (test See_Comment [Automat ed code = 1433387222) message] The system which generated this result transmit ronan reference range : 0.0 - 10.0 /100 WBCs. The reference range was not used to interpret this result as normal/abnormal . NRBC x10^3 (test code <0.01 See_Comment [Auto mated = 7911201581) message] The system which generated this result transmit ronan reference range : 10*3/?L. The reference range was not used to interpret this result as normal/abnormal . GRAN MAT (NEUT) % 74.5 % (test code = 770-8) IMM GRAN % (test code 0.70 % = 9701896127) LYMPH % (test code = 17.4 % 736-9) MONO % (test code = 6.8 % 5905-5) EOS % (test code = 0.2 % 713-8) BASO % (test code = 0.4 % 706-2) GRAN MAT x10^3(ANC) 11.99 10*3/uL 1.99-6.95 H (test code = 0058801075) IMM GRAN x10^3 (test 0.11 10*3/uL 0.00-0.06 H code = 1280023214) LYMPH x10^3 (test code 2.80 10*3/uL 1.09-3.23 = 731-0) MONO x10^3 (test code 1.10 10*3/uL 0.36-1.02 H = 742-7) EOS x10^3 (test code = 0.03 10*3/uL 0.06-0.53 L 711-2) BASO x10^3 (test code 0.06 10*3/uL 0.01-0.09 = 704-7) Lab Interpretation Abnormal (test code = 66316-2) [facility] GLUCOSE (AUTOMATED)2020-12-15 04:16:00 Test Item Value Reference Range Interpretation Comments POCT GLU (test code = 3277390340) 200 mg/dL 70-110 H Lab Interpretation (test code = Abnormal 81359-7) [facility]IT[facility] (THIAMINE), WHOLE [id number] 00:30:00 Test Item Value Reference Range Interpretation Comments Vitamin B1, Whole 136 nmol/L 70-180 INTERPRETI VE INFORMATION: Blood (test code = Vitamin B 1, Whole Blood 57001-4) This assay júnior ures the concentration o f thiamine diphosphate (TD P), the primary active form of vitamin B1. Nick roximately 90 percent of v itamin B1 present in whol e blood is TDP. Thiamine a nd thiamine monoph osphate, which comprise the remaining 10 pe rcent, are not measured. T his test was developed a nd its performance characteristics determined by [facility]. I t has not been cleared or approved by the [place] Food and Drug Administration. This test was performed i n a CLIA certified labor atory and is intended for clinical purposes.Perfor med By: [facility] [place], [place] [address]C aboratory Director: Namrata Klein MD [facility] GLUCOSE (AUTOMATED)2020-12-14 23:35:00 Test Item Value Reference Range Interpretation Comments POCT GLU (test code = 3381722271) 151 mg/dL 70-110 H Lab Interpretation (test code = Abnormal 99408-3) [facility] GLUCOSE (AUTOMATED)2020-12-14 19:19:00 Test Item Value Reference Range Interpretation Comments POCT GLU (test code = 9698536358) 193 mg/dL 70-110 H Lab Interpretation (test code = Abnormal 39445-0) [facility] GLUCOSE (AUTOMATED)2020-12-14 15:22:00 Test Item Value Reference Range Interpretation Comments POCT GLU (test code = 1220359902) 221 mg/dL 70-110 H Lab Interpretation (test code = Abnormal 74384-4) [facility] GLUCOSE (AUTOMATED)2020-12-14 02:37:00 Test Item Value Reference Range Interpretation Comments POCT GLU (test code = 0256555111) 210 mg/dL 70-110 H Lab Interpretation (test code = Abnormal 66750-1) [facility] GLUCOSE (AUTOMATED)2020-12-13 23:33:00 Test Item Value Reference Range Interpretation Comments POCT GLU (test code = 6106401991) 182 mg/dL 70-110 H Lab Interpretation (test code = Abnormal 10905-4) [facility] GLUCOSE (AUTOMATED)2020-12-13 18:09:00 Test Item Value Reference Range Interpretation Comments POCT GLU (test code = 3826785406) 150 mg/dL 70-110 H Lab Interpretation (test code = Abnormal 02789-8) [facility] METABOLIC PANEL (NA, K, CL, CO2, GLUCOSE, BUN, CREATININE, CA)2020-12-13 16:27:00 Test Item Value Reference Range Interpretation Comments NA (test code = 136 mmol/L 135-145 8031844572) K (test code = 3.7 mmol/L 3.5-5.0 3607110964) CL (test code = 96 mmol/L 98-108 L 3389719835) CO2 TOTAL (test code = 29 mmol/L 23-31 0772823137) AGAP (test code = 2-16 1406321698) BUN (test code = 6 mg/dL 7-23 L 6325976901) GLUCOSE (test code = 212 mg/dL 70-110 H 4040986226) CREATININE (test code = 0.61 mg/dL 0.60-1.25 5477342031) CALCIUM (test code = 9.5 mg/dL 8.6-10.6 8552139924) eGFR Calculation mL/min/1.73m2 (Non-) (test code = 6011607318) eGFR Calculation mL/min/1.73m2 () (test code = 9931234907) JAMES (test code = JAMES) Association of [...] tests). Lab Interpretation Abnormal (test code = 70508-3) [facility] WITH [id number] 16:10:00 Test Item Value Reference Range Interpretation Comments WBC (test code = See_Comment H [Automated 1190-2) message] The sy stem which generated this result transmitted reference range : 4.20 - 10.70 10*3/?L. The reference range was not used to interpret this result as normal/abnormal . RBC (test code = See_Comment H [Automated 399-8) message] The sy stem which generated this [...] RDW-SD (test code = 43.3 fL 38.5-51.6 42443-3) RDW-CV (test code = 16.2 % 12.1-15.4 H 788-0) PLT (test code = See_Comment H [Automated 777-3) message] The sy stem which generated this result transmitted reference range : 150 - 328 10*3/ ?L. The reference r torito was not used to interpret this result as normal/abnormal . MPV (test code = 8.2 fL 9.8-13.0 L 64156-7) NRBC/100 WBC (test See_Comment [Automat ed code = 2948433851) message] The system which generated this result transmitted reference range : 0.0 - 10.0 /100 WBCs. The refer ence range was not u sed to interpret th is result as normal/abnormal . NRBC x10^3 (test code <0.01 See_Comment [Auto mated = 6986630825) message] The s ystem which generated this result transmitted reference range : 10*3/?L. The reference range was not used to interpret this result as normal/abnormal . GRAN MAT (NEUT) % 86.2 % (test code = 770-8) IMM GRAN % (test code 0.70 % = 6199097183) LYMPH % (test code = 10.2 % 736-9) MONO % (test code = 2.5 % 5905-5) EOS % (test code = 0.1 % 713-8) BASO % (test code = 0.3 % 706-2) GRAN MAT x10^3(ANC) 9.61 10*3/uL 1.99-6.95 H (test code = 6788436873) IMM GRAN x10^3 (test 0.08 10*3/uL 0.00-0.06 H code = 0975568827) LYMPH x10^3 (test code 1.14 10*3/uL 1.09-3.23 = 731-0) MONO x10^3 (test code 0.28 10*3/uL 0.36-1.02 L = 742-7) EOS x10^3 (test code = <0.03 0.06-0.53 L 711-2) BASO x10^3 (test code 0.03 10*3/uL 0.01-0.09 = 704-7) Lab Interpretation Abnormal (test code = 09386-1) [facility]2020-12-13 14:16:00 Test Item Value Reference Range Interpretation Comments POCT GLU (test code = 0510629935) 236 mg/dL 70-110 H Lab Interpretation (test code = Abnormal 36838-7) [facility] COVID [id number] 04:58:00COVID DMT InterpretationInterpretation/Recommendations: Molecular NAAT Tests for [...] medical record. [facility] SERVICESC[facility] AmzmdcvXTTO-DcW-2 Rapid ID NOW (no units) ? ? Date ? Value ? 12/11/2020 ? Not Detected ? ? ? 11/16/2020 ? Not Detected ? ? ? 08/21/2020 ? Not Detected ? [facility] 2020-12-13 03:11:00 Test Item Value Reference Range Interpretation Comments POCT GLU (test code = 1685210422) 171 mg/dL 70-110 H Lab Interpretation (test code = Abnormal 59776-0) [facility] GLUCOSE (AUTOMATED)2020-12-13 00:00:00 Test Item Value Reference Range Interpretation Comments POCT GLU (test code = 0497728372) 118 mg/dL 70-110 H Lab Interpretation (test code = Abnormal 27550-3) [facility] GLUCOSE (AUTOMATED)2020-12-12 20:29:00 Test Item Value Reference Range Interpretation Comments POCT GLU (test code = 8267419966) 173 mg/dL 70-110 H Lab Interpretation (test code = Abnormal 48916-9) [facility] CenterUS ABDOMEN [id number] 19:56:17 1. ?Hepatic steatosis. However, limited evaluation [...] main portal veinwasevaluated with color Doppler imaging. [employer] images were obtainedfor the record. COMPARISON: [...] portal vein wasevaluated with color Doppler imaging. [employer] images wereobtainedfor the record.COMPARISON: Ultrasound abdomen [...] and agree with the abovereport.[facility]2020-12-12 19:24:00 Test Item Value Reference Range Interpretation Comments POCT GLU (test code = 8803851829) 230 mg/dL 70-110 H Lab Interpretation (test code = Abnormal 97328-1) [facility] CHEST 1 [id number] 15:16:46 Low lung volumes with mild perihilar [...] this study and agree with theabove report.[facility]2020-12-12 14:34:00 Test Item Value Reference Range Interpretation Comments POCT GLU (test code = 7266873149) 225 mg/dL 70-110 H Lab Interpretation (test code = Abnormal 05073-2) [facility] CenterURINE [id number] 13:28:00 Test Item Value Reference Range Interpretation Comments URINE CULTURE (test < 10,000 CFU/mL mixed code = 630-4) aerobic organisms - suggests endogenous microbial contamination [facility] (NA, K, CL, CO2, GLUCOSE, BUN, CREATININE, CA)2020-12-12 10:05:00 Test Item Value Reference Range Interpretation Comments NA (test code = 136 mmol/L 135-145 4577033181) K (test code = 3.5 mmol/L 3.5-5.0 8058965085) CL (test code = 100 mmol/L 98-108 6532445293) CO2 TOTAL (test code = 31 mmol/L 23-31 9776978989) AGAP (test code = 2-16 1313512200) BUN (test code = 7 mg/dL 7-23 0772202145) GLUCOSE (test code = 259 mg/dL 70-110 H 7288910593) CREATININE (test code = 0.63 mg/dL 0.60-1.25 0814970508) CALCIUM (test code = 8.5 mg/dL 8.6-10.6 L 8215158740) eGFR Calculation mL/min/1.73m2 (Non-) (test code = 0897816023) eGFR Calculation mL/min/1.73m2 () (test code = 3604835704) JAMES (test code = JAMES) Association of [...] tests). Lab Interpretation Abnormal (test code = 41845-3) [facility] CenterMagnesium [id number] 10:05:00 Test Item Value Reference Range Interpretation Comments MAGNESIUM (test code = 3380807654) 1.9 mg/dL 1.7-2.4 Lab Interpretation (test code = Normal 01259-4) [facility] with [id number] 09:48:00 Test Item Value Reference Range Interpretation Comments WBC (test code = See_Comment [Automated 6647-2) message] The sy stem which generated this result transmitted reference range : 4.20 - 10.70 10*3/?L. The reference range was not used to interpret this result as normal/abnormal . RBC (test code = See_Comment [Automated 603-7) message] The sy stem which generated this [...] RDW-SD (test code = 46.0 fL 38.5-51.6 67209-4) RDW-CV (test code = 16.1 % 12.1-15.4 H 788-0) PLT (test code = See_Comment H [Automated 777-3) message] The sy stem which generated this result transmitted reference range : 150 - 328 10*3/ ?L. The reference r torito was not used to interpret this result as normal/abnormal . MPV (test code = 8.6 fL 9.8-13.0 L 05806-4) NRBC/100 WBC (test See_Comment [Automat ed code = 9846026802) message] The system which generated this result transmitted reference range : 0.0 - 10.0 /100 WBCs. The refer ence range was not u sed to interpret th is result as normal/abnormal . NRBC x10^3 (test code <0.01 See_Comment [Auto mated = 6085588055) message] The s ystem which generated this result transmitted reference range : 10*3/?L. The reference range was not used to interpret this result as normal/abnormal . GRAN MAT (NEUT) % 70.2 % (test code = 770-8) IMM GRAN % (test code 0.30 % = 7073712211) LYMPH % (test code = 18.8 % 736-9) MONO % (test code = 5.0 % 5905-5) EOS % (test code = 5.2 % 713-8) BASO % (test code = 0.5 % 706-2) GRAN MAT x10^3(ANC) 6.05 10*3/uL 1.99-6.95 (test code = 3158103117) IMM GRAN x10^3 (test 0.03 10*3/uL 0.00-0.06 code = 2085761543) LYMPH x10^3 (test code 1.62 10*3/uL 1.09-3.23 = 731-0) MONO x10^3 (test code 0.43 10*3/uL 0.36-1.02 = 742-7) EOS x10^3 (test code = 0.45 10*3/uL 0.06-0.53 711-2) BASO x10^3 (test code 0.04 10*3/uL 0.01-0.09 = 704-7) Lab Interpretation Abnormal (test code = 99461-4) [facility]POL[facility]2020-12-12 03:42:00 Test Item Value Reference Range Interpretation Comments POCT GLU (test code = 196 mg/dL 70-110 H Notifi ed Provider 0545002479) Lab Interpretation (test Abnormal code = 30711-9) [facility] CenterFOLATE2021-[facility]-02 02:24:00 Test Item Value Reference Range Interpretation Comments FOLATE SER (test code = 6062494067) 5.8 ng/mL 3.0-20.0 Lab Interpretation (test code = Normal 35644-3) [facility] CenterVITAMIN B12, [id number] 00:55:00 Test Item Value Reference Range Interpretation Comments VIT B12 (test code = 844 pg/mL 240-930 1741318721) JAMES (test code = JAMES) Biotin has been reported to cause a positive bias, interpret results relative to patient's use of biotin. Lab Interpretation (test Normal code = 45405-1) [facility] GLUCOSE (AUTOMATED)2020-12-12 00:14:00 Test Item Value Reference Range Interpretation Comments POCT GLU (test code = 5566795373) 164 mg/dL 70-110 H Lab Interpretation (test code = Abnormal 74153-6) [facility] CenterCREATINE [id number] 23:42:00 Test Item Value Reference Range Interpretation Comments CK (test code = 3172741568) <20 33-194 L Lab Interpretation (test code = Abnormal 25982-8) [facility] CenterTHYROID STIMULATING [id number] 23:17:00 Test Item Value Reference Range Interpretation Comments TSH (test code = See_Comment Biotin has been 1125501721) reported to cau se a negative bias, interpret resul ts relative to johnny bills's use of biotin. [Automated mess age] The system [employer] generated this result transmitted ref erence range: 0.45 - 4 .70 mIU/L. The refe rence range was not u sed to interpret this result as normal/abnor mal. Lab Interpretation (test Normal code = 65549-8) [facility] 3 VW [id number] 21:41:53No appreciable fracture lines. RL: 6200 ICAL [...] osseous erosions.IMPRESSIONNo appreciable fracture lines.RL: 6200 [facility]PROCALCITONIN2021-[facility] 20:00:00 Test Item Value Reference Range Interpretation Comments Procalcitonin (test 0.13 ng/mL <0.07 H code = 4566218215) JAMES (test code = JAMES) INTERPRETATION OF [...] lung abscess/empyema. For further information please refer to:[email or web address] Lab Interpretation Abnormal (test code = 68416-0) [facility]ATED[facility]2020-12-11 19:07:00 Test Item Value Reference Range Interpretation Comments POCT GLU (test code = 7000688458) 274 mg/dL 70-110 H Lab Interpretation (test code = Abnormal 36309-9) [facility]MAG[facility]IUM2021-03-01 18:31:00 Test Item Value Reference Range Interpretation Comments MAGNESIUM (test code = 6595548916) 1.9 mg/dL 1.7-2.4 Lab Interpretation (test code = Normal 25540-9) [facility] CenterFERRITIN [id number] 18:31:00 Test Item Value Reference Range Interpretation Comments FERRITIN (test code = 178.0 ng/mL 18.0-464.0 1806014039) JAMES (test code = JAMES) Biotin has been reported to cause a negative bias, interpret results relative to patient's use of biotin. Lab Interpretation (test Normal code = 22757-7) [facility] HEAD WO [id number] 14:36:47 No acute intracranial abnormality. Dilated ventricles [...] Comments APPEARANCE (test code = Clear Clear 5014061028) COLOR (test code = Yellow Yellow 2313563633) PH (test code = 4.8-8.0 5608875064) SP GRAVITY (test code = 1.003-1.030 2745178230) GLU U QUAL (test code = 500 mg/dL Normal A 6465825198) BLOOD (test code = Negative Negative 0422433664) KETONES (test code = 5 mg/dL Negative A 1290110603) PROTEIN (test code = Negative Negative 2887-8) UROBILIN (test code = Normal Normal 1941087091) BILIRUBIN (test code = Negative Negative 3899268710) NITRITE (test code = Negative Negative 1863906621) LEUK RYAN (test code = Negative Negative 8785665643) RBC/HPF (test code = See_Comment [Autom ated message] 3530974237) The system [employer] generated this result transmit ronan reference range : 0 - 3 HPF. The refe rence range was not u sed to interpret th is result as normal/abnormal . WBC/HPF (test code = See_Comment [Autom ated message] 5248574080) The system [employer] generated this result transmit ronan reference range : 0 - 5 HPF. The refe rence range was not u sed to interpret th is result as normal/abnormal . BACTERIA (test code = Negative Negative 5954433509) MUCOUS (test code = Slight Negative LPF A 5721002818) SQ EPITH (test code = HPF 8769584873) Lab Interpretation (test Abnormal code = 34419-7) [facility] CenterCOVID-[facility] (ID NOW RAPID TESTING)2020-12-11 13:10:00 Test Item Value Reference Range Interpretation Comments SARS-CoV-2 Rapid ID NOW Not Detected Not Detected (test code = 62701-3) JAMES (test code = JAMES) ID NOW COVID-19 Assay is an isothermal nucleic acid amplification test intended for the qualitative detection of nucleic acid from SARS-CoV-2 viral RNA in nasopharyngeal (BUSINESS COORDINATOR) specimens. It is used under Emergency Use [...] indicated. Lab Interpretation Normal (test code = 84152-3) [facility]. METABOLIC PANEL (15950)2020-12-11 12:29:00 Test Item Value Reference Range Interpretation Comments NA (test code = 136 mmol/L 135-145 2241622242) K (test code = 3.5 mmol/L 3.5-5.0 9265566340) CL (test code = 95 mmol/L 98-108 L 7412191602) CO2 TOTAL (test code = 35 mmol/L 23-31 H 9631493885) AGAP (test code = 2-16 1212983582) BUN (test code = 9 mg/dL 7-23 1105887309) GLUCOSE (test code = 329 mg/dL 70-110 H 7082137312) CREATININE (test code = 0.72 mg/dL 0.60-1.25 3216822647) TOTAL BILI (test code = 0.6 mg/dL 0.1-1.7 8083275366) CALCIUM (test code = 9.0 mg/dL 8.6-10.6 3283101011) T PROTEIN (test code = 6.8 g/dL 6.3-8.2 0243122536) ALBUMIN (test code = 3.8 g/dL 3.5-5.0 7758112615) ALK PHOS (test code = 288 U/L 34-122 H 4752985025) ALTv (test code = 46 U/L 5-50 1742-6) AST(SGOT) (test code = 38 U/L 13-40 8301530878) eGFR Calculation mL/min/1.73m2 (Non-) (test code = 3222144310) eGFR Calculation mL/min/1.73m2 () (test code = 0460491256) JAMES (test code = JAMES) Association of [...] tests). Lab Interpretation Abnormal (test code = 16785-3) [facility] CenterLactic Acid Whole [id number] 12:23:00 Test Item Value Reference Range Interpretation Comments LACTIC ACID (test code = 2.09 mmol/L 0.50-2.20 5116027407) Lab Interpretation (test code = Normal 14365-2) [facility] WITH [id number] 12:17:00 Test Item Value Reference Range Interpretation Comments WBC (test code = See_Comment H [Automated 4690-2) message] The sy stem which generated this result transmitted reference range : 4.20 - 10.70 10*3/?L. The reference range was not used to interpret this result as normal/abnormal . RBC (test code = See_Comment [Automated 349-8) message] The sy stem which generated this [...] RDW-SD (test code = 44.9 fL 38.5-51.6 50584-6) RDW-CV (test code = 15.9 % 12.1-15.4 H 788-0) PLT (test code = See_Comment H [Automated 777-3) message] The sy stem which generated this result transmitted reference range : 150 - 328 10*3/ ?L. The reference r torito was not used to interpret this result as normal/abnormal . MPV (test code = 8.3 fL 9.8-13.0 L 60220-3) NRBC/100 WBC (test See_Comment [Automat ed code = 6185475193) message] The system which generated this result transmitted reference range : 0.0 - 10.0 /100 WBCs. The refer ence range was not u sed to interpret th is result as normal/abnormal . NRBC x10^3 (test code <0.01 See_Comment [Auto mated = 0215517721) message] The s ystem which generated this result transmitted reference range : 10*3/?L. The reference range was not used to interpret this result as normal/abnormal . GRAN MAT (NEUT) % 77.9 % (test code = 770-8) IMM GRAN % (test code 0.50 % = 7156374623) LYMPH % (test code = 12.2 % 736-9) MONO % (test code = 5.2 % 5905-5) EOS % (test code = 3.7 % 713-8) BASO % (test code = 0.5 % 706-2) GRAN MAT x10^3(ANC) 9.57 10*3/uL 1.99-6.95 H (test code = 9502295280) IMM GRAN x10^3 (test 0.06 10*3/uL 0.00-0.06 code = 2949476471) LYMPH x10^3 (test code 1.50 10*3/uL 1.09-3.23 = 731-0) MONO x10^3 (test code 0.64 10*3/uL 0.36-1.02 = 742-7) EOS x10^3 (test code = 0.46 10*3/uL 0.06-0.53 711-2) BASO x10^3 (test code 0.06 10*3/uL 0.01-0.09 = 704-7) Lab Interpretation Abnormal (test code = 18417-3) [facility] CenterLAB ONLY COVID [id number] 18:43:00COVID DMT InterpretationInterpretation/Recommendations: Molecular NAAT Test Results [...] a nasopharyngeal sample, there is approximately a exj-vb-tvusg chance that the patient was infected and [...] based upon aggregate data pooled from the [facility] medical recordincluding both current and prior COVID-19 related testing results for the following tests offered atour institution:A. Tests for the Identification of SARS-CoV-2 RNA:SARS-CoV-2 PCR assays including [place] Aptima, [place] Fusion, Barrett RealTime, and Tele[employer]ner Xpert Xpress. SARS-CoV-2 Rapid ID NOW by the ID NOW assay. ? B. Tests for the Identification of SARS-CoV-2 Antibodies: Chemiluminescent immunoassays including Access SARS-CoV-2 IgM (DXI 600), VITROS Iuro-CTKT-MvM-2 IgG (Vitros 5600 and Vitros 3600), and Barrett SARS-CoV-2 IgG ([employer] I System). These interpretation comments assume that only the above testing was utilized and that the approved acceptable specimen type(s) were used for a given test. These interpretations are autopopulated into [employer] based on computerized algorithms matching an interpretation [...] this setting. [facility]ORAT[facility] SERVICESCOVID TledxlqVQJH-AlI-1 Rapid ID NOW (no units) ? ? Date ? Value ? 08/21/2020 ? Not Detected ? [facility] SERVICESUn[facility]2020-08-23 18:25:00 Test Item Value Reference Range Interpretation Comments POCT GLU (test code = 2232052599) 297 mg/dL 70-110 H Lab Interpretation (test code = Abnormal 80712-8) [facility] GLUCOSE (AUTOMATED)2020-08-23 14:25:00 Test Item Value Reference Range Interpretation Comments POCT GLU (test code = 4674550033) 181 mg/dL 70-110 H Lab Interpretation (test code = Abnormal 46595-8) [facility] Metabolic Panel (NA, K, CL, CO2, GLUCOSE, BUN, CREATININE, CA)2020-08-23 11:45:00 Test Item Value Reference Range Interpretation Comments NA (test code = 132 mmol/L 135-145 L 1624358608) K (test code = 4.0 mmol/L 3.5-5 3684076103) CL (test code = 96 mmol/L 98-108 L 3081222357) CO2 TOTAL (test code = 33 mmol/L 23-31 H 4087188109) AGAP (test code = 2-16 8341529839) BUN (test code = 9 mg/dL 7-23 1019892220) GLUCOSE (test code = 176 mg/dL 70-110 H 5415681295) CREATININE (test code = 0.66 mg/dL 0.6-1.25 6102895789) CALCIUM (test code = 8.5 mg/dL 8.6-10.6 L 3362281032) eGFR Calculation mL/min/1.73m2 (Non-) (test code = 7892205762) eGFR Calculation mL/min/1.73m2 () (test code = 2630962793) JAMES (test code = JAMES) Association of [...] tests). Lab Interpretation Abnormal (test code = 69500-4) [facility] CenterMagnesium [id number] 11:45:00 Test Item Value Reference Range Interpretation Comments MAGNESIUM (test code = 4916981299) 2.0 mg/dL 1.7-2.4 Lab Interpretation (test code = Normal 48681-3) [facility] with [id number] 11:38:00 Test Item Value Reference Range Interpretation [...] RDW-SD (test code = 41.8 fL 38.5-51.6 98866-1) RDW-CV (test code = 14.3 % 12.1-15.4 788-0) PLT (test code = See_Comment H [Automated 777-3) message] The sy stem which generated this result transmitted reference range : 150 - 328 10*3/ ?L. The reference r torito was not used to interpret this result as normal/abnormal . MPV (test code = 8.0 fL 9.8-13 L 01121-6) NRBC/100 WBC (test See_Comment [Automat ed code = 0852266239) message] The system which generated this result transmitted reference range : 0.0 - 10.0 /100 WBCs. The refer ence range was not u sed to interpret th is result as normal/abnormal . NRBC x10^3 (test code <0.01 See_Comment [Auto mated = 6407502146) message] The s ystem which generated this result transmitted reference range : 10*3/?L. The reference range was not used to interpret this result as normal/abnormal . GRAN MAT (NEUT) % 61.5 % (test code = 770-8) IMM GRAN % (test code 2.00 % = 6704935129) LYMPH % (test code = 25.5 % 736-9) MONO % (test code = 6.3 % 5905-5) EOS % (test code = 3.7 % 713-8) BASO % (test code = 1.0 % 706-2) GRAN MAT x10^3(ANC) 5.29 10*3/uL 1.99-6.95 (test code = 0115682239) IMM GRAN x10^3 (test 0.17 10*3/uL 0-0.06 H code = 0198582608) LYMPH x10^3 (test code 2.19 10*3/uL 1.09-3.23 = 731-0) MONO x10^3 (test code 0.54 10*3/uL 0.36-1.02 = 742-7) EOS x10^3 (test code = 0.32 10*3/uL 0.06-0.53 711-2) BASO x10^3 (test code 0.09 10*3/uL 0.01-0.09 = 704-7) Lab Interpretation Abnormal (test code = 08220-6) [facility] GLUCOSE (AUTOMATED)2020-08-23 10:22:00 Test Item Value Reference Range Interpretation Comments POCT GLU (test code = 5179241547) 164 mg/dL 70-110 H Lab Interpretation (test code = Abnormal 60794-5) [facility] GLUCOSE (AUTOMATED)2020-08-23 05:56:00 Test Item Value Reference Range Interpretation Comments POCT GLU (test code = 3665657954) 242 mg/dL 70-110 H Lab Interpretation (test code = Abnormal 53520-3) [facility] GLUCOSE (AUTOMATED)2020-08-23 03:02:00 Test Item Value Reference Range Interpretation Comments POCT GLU (test code = 0294485316) 210 mg/dL 70-110 H Lab Interpretation (test code = Abnormal 77915-2) [facility] GLUCOSE (AUTOMATED)2020-08-22 23:40:00 Test Item Value Reference Range Interpretation Comments POCT GLU (test code = 5090734702) 267 mg/dL 70-110 H Lab Interpretation (test code = Abnormal 74219-0) [facility] GLUCOSE (AUTOMATED)2020-08-22 19:08:00 Test Item Value Reference Range Interpretation Comments POCT GLU (test code = 1503371136) 191 mg/dL 70-110 H Lab Interpretation (test code = Abnormal 48235-7) [facility] GLUCOSE (AUTOMATED)2020-08-22 13:50:00 Test Item Value Reference Range Interpretation Comments POCT GLU (test code = 2558271773) 174 mg/dL 70-110 H Lab Interpretation (test code = Abnormal 02600-3) [facility] CenterURINE [id number] 12:59:00 Test Item Value Reference Range Interpretation Comments URINE CULTURE (test No aerobic growth (< code = 630-4) 1000 CFU/mL) [facility] CenterCBC with Kzhlpzpphdyq9183-94-26 11:28:00 Test Item Value Reference Range Interpretation Comments WBC (test code = See_Comment [Automated 6690-2) message] The sy stem which generated this result transmitted reference range : 4.20 - 10.70 10*3/?L. The reference range was not used to interpret this result as normal/abnormal . RBC (test code = See_Comment L [Automated 069-8) message] The sy stem which generated this [...] RDW-SD (test code = 42.5 fL 38.5-51.6 54446-4) RDW-CV (test code = 14.5 % 12.1-15.4 788-0) PLT (test code = See_Comment H [Automated 777-3) message] The sy stem which generated this result transmitted reference range : 150 - 328 10*3/ ?L. The reference r torito was not used to interpret this result as normal/abnormal . MPV (test code = 8.0 fL 9.8-13 L 84132-9) NRBC/100 WBC (test See_Comment [Automat ed code = 5374480261) message] The system which generated this result transmitted reference range : 0.0 - 10.0 /100 WBCs. The refer ence range was not u sed to interpret th is result as normal/abnormal . NRBC x10^3 (test code <0.01 See_Comment [Auto mated = 4720353253) message] The s ystem which generated this result transmitted reference range : 10*3/?L. The reference range was not used to interpret this result as normal/abnormal . GRAN MAT (NEUT) % 69.1 % (test code = 770-8) IMM GRAN % (test code 2.20 % = 4236461471) LYMPH % (test code = 20.9 % 736-9) MONO % (test code = 5.8 % 5905-5) EOS % (test code = 1.0 % 713-8) BASO % (test code = 1.0 % 706-2) GRAN MAT x10^3(ANC) 6.51 10*3/uL 1.99-6.95 (test code = 8471742519) IMM GRAN x10^3 (test 0.21 10*3/uL 0-0.06 H code = 6096139208) LYMPH x10^3 (test code 1.97 10*3/uL 1.09-3.23 = 731-0) MONO x10^3 (test code 0.55 10*3/uL 0.36-1.02 = 742-7) EOS x10^3 (test code = 0.09 10*3/uL 0.06-0.53 711-2) BASO x10^3 (test code 0.09 10*3/uL 0.01-0.09 = 704-7) BASO STIPPLING (test Present A code = 703-9) BANDS (test code = Increased A 1187239849) TOXIC CHANGES (test Present A code = 803-7) Lab Interpretation Abnormal (test code = 06372-7) [facility] Metabolic Panel (NA, K, CL, CO2, GLUCOSE, BUN, CREATININE, CA)2020-08-22 11:12:00 Test Item Value Reference Range Interpretation Comments NA (test code = 135 mmol/L 135-145 2289781417) K (test code = 3.6 mmol/L 3.5-5 1422939956) CL (test code = 99 mmol/L 98-108 0348768718) CO2 TOTAL (test code = 31 mmol/L 23-31 9882411047) AGAP (test code = 2-16 7356190420) BUN (test code = 9 mg/dL 7-23 6925780660) GLUCOSE (test code = 198 mg/dL 70-110 H 0496033383) CREATININE (test code = 0.72 mg/dL 0.6-1.25 0889977623) CALCIUM (test code = 8.3 mg/dL 8.6-10.6 L 5959965673) eGFR Calculation mL/min/1.73m2 (Non-) (test code = 8656554024) eGFR Calculation mL/min/1.73m2 () (test code = 5268349345) JAMES (test code = JAMES) Association of [...] tests). Lab Interpretation Abnormal (test code = 79391-0) [facility] CenterMagnesium [id number] 11:12:00 Test Item Value Reference Range Interpretation Comments MAGNESIUM (test code = 3833978657) 2.0 mg/dL 1.7-2.4 Lab Interpretation (test code = Normal 56626-7) [facility] CenterLipid Panel (Total Cholesterol, Triglycerides, HDL) - [id number] 11:12:00 Test Item Value Reference Range Interpretation Comments CHOL (test code = 155 mg/dL 120-200 8574447452) HDL (test code = 42 mg/dL >40 9616352959) HDLC RATIO (test code = See_Comment [Au tomated message] 1317782234) The system [employer] generated this result transmit ronan reference range : <=5.0. The refe rence range was not u sed to interpret th is result as normal/abnormal . TRIG (test code = 186 mg/dL 30-170 H 6798010268) LDL CHOL (test code = 76 mg/dL See_Comment [Auto mated message] 31953-0) The system [employer] generated this result transmit ronan reference range : <=160. The refe rence range was not u sed to interpret th is result as normal/abnormal . VLDL (test code = 37 mg/dL 5-60 7378799811) Lab Interpretation (test Abnormal code = 75062-8) [facility] CenterHEPATIC FUNCTION PANEL (77712) (ALB,T.PRO,BILI T,BU/BC,ALT,AST,ALK PHOS)2020-08-22 11:12:00 Test Item Value Reference Range Interpretation Comments TOTAL BILI (test code = 7654856879) 0.6 mg/dL 0.1-1.1 BILI UNCON (test code = 1901308880) 0.2 mg/dL 0.1-1.1 BILI CONJ (test code = 3125056576) 0.0 mg/dL 0-0.3 T PROTEIN (test code = 4190322646) 6.0 g/dL 6.3-8.2 L ALBUMIN (test code = 7600288863) 2.8 g/dL 3.5-5 L ALK PHOS (test code = 1699330846) 222 U/L 34-122 H ALTv (test code = 1742-6) 27 U/L 5-50 AST(SGOT) (test code = 9502387601) 30 U/L 13-40 Lab Interpretation (test code = Abnormal 38419-8) [facility] GLUCOSE (AUTOMATED)2020-08-22 10:11:00 Test Item Value Reference Range Interpretation Comments POCT GLU (test code = 0793909214) 196 mg/dL 70-110 H Lab Interpretation (test code = Abnormal 98356-2) [facility] GLUCOSE (AUTOMATED)2020-08-22 07:15:00 Test Item Value Reference Range Interpretation Comments POCT GLU (test code = 2907120554) 183 mg/dL 70-110 H Lab Interpretation (test code = Abnormal 30918-4) [facility] GLUCOSE (AUTOMATED)2020-08-22 02:30:00 Test Item Value Reference Range Interpretation Comments POCT GLU (test code = 5727315697) 295 mg/dL 70-110 H Lab Interpretation (test code = Abnormal 44132-7) [facility] GLUCOSE (AUTOMATED)2020-08-21 23:46:00 Test Item Value Reference Range Interpretation Comments POCT GLU (test code = 4468109162) 258 mg/dL 70-110 H Lab Interpretation (test code = Abnormal 72266-0) [facility] CenterC-REACTIVE [id number] 18:50:00 Test Item Value Reference Range Interpretation Comments CRP (test code = 6093986614) 15.5 mg/dL <0.8 H Lab Interpretation (test code = Abnormal 12800-9) [facility]2020-08-21 18:21:00 Test Item Value Reference Range Interpretation Comments POCT GLU (test code = 2015687732) 297 mg/dL 70-110 H Lab Interpretation (test code = Abnormal 22413-9) [facility] CenterETHANOL2020-11-09 16:24:00 Test Item Value Reference Range Interpretation Comments ALCOHOL (test code = <10 mg/dL 9847512286) JAMES (test code = Toxic Greater than or JAMES) equal to 80 mg/dL. NOTE: Whole blood values are approximately 10% to 15% lower than serum and plasma. [facility] CenterGAL/CLC ONLY - URINE DRUG (IMMUNOASSAY) - 4 ER [id number] 15:36:00 Test Item Value Reference Range Interpretation Comments AMPHET (test code = Negative Negative 1003978896) Cocaine Metabolite (test Negative Negative code = 8126063117) OPIATES (test code = Presumptive Positive Negative A 5649821579) THC (test code = Negative Negative 2416959951) JAMES (test code = JAMES) Urine Drug Cutoff Ranges Amphetamine: ? 1,000 ng/mLCocaine: ? 150 ng/mLOpiates: ? 300 ng/mLCannabinoids: ?50 ng/mL The results are to be used only for medical (i.e., treatment) purposes. Unconfirmed screening results must not be used for non-medical purposes (e.g., employment testing, legal testing). Lab Interpretation (test Abnormal code = 38556-7) [facility] ONLY - SYPHILIS [id number] 15:04:00 Test Item Value Reference Range Interpretation Comments Syphilis IgG/IgM (test Non-reactive Non-reactive code = 24197-0) JAMES (test code = JAMES) Non-reactive - No serologic evidence of T. pallidum infection. Cannot exclude incubating or early syphilis. Submit a second specimen in 2-4 weeks if syphilis is clinically suspected. Equivocal - Further testing to follow. Reactive - Further testing to follow. Lab Interpretation (test Normal code = 13235-7) [facility] CenterUrinalysis2020-11-09 14:52:00 Test Item Value Reference Range Interpretation Comments APPEARANCE (test code = Clear Clear 6170480729) COLOR (test code = Yellow Yellow 6710814745) PH (test code = 4.8-8.0 1084550856) SP GRAVITY (test code = 1.003-1.030 6079308025) GLU U QUAL (test code = 500 mg/dL Normal A 3788642749) BLOOD (test code = Negative Negative 1432613882) KETONES (test code = 20 mg/dL Negative A 3966216160) PROTEIN (test code = Negative Negative 2887-8) UROBILIN (test code = Normal Normal 3352231554) BILIRUBIN (test code = Negative Negative 3485303263) NITRITE (test code = Negative Negative 5896353760) LEUK RYAN (test code = Negative Negative 8789955219) RBC/HPF (test code = <1 See_Comment [Autom ated message] 0219849924) The system [employer] generated this result transmit ronan reference range : 0 - 3 HPF. The refe rence range was not u sed to interpret th is result as normal/abnormal . WBC/HPF (test code = See_Comment [Autom ated message] 5271010307) The system [employer] generated this result transmit ronan reference range : 0 - 5 HPF. The refe rence range was not u sed to interpret th is result as normal/abnormal . BACTERIA (test code = Negative Negative 1883811311) MUCOUS (test code = Slight Negative LPF A 6983498280) Lab Interpretation (test Abnormal code = 35315-9) [facility] CenterACTIVATED PARTIAL THRMPLAS [id number] 13:45:00 Test Item Value Reference Range Interpretation Comments APTT Patient (test code = See_Comment [ Automated message] 3173-2) The system [employer] generated this result transmitted ref erence range: 26 - 36 Seconds. The re ference range was not u sed to interpret this result as normal/abnor mal. Lab Interpretation (test Normal code = 35714-7) [facility] CenterPO[facility] (AUT[facility]ATED)2020-08-21 13:45:00 Test Item Value Reference Range Interpretation Comments POCT GLU (test code = 9811148054) 246 mg/dL 70-110 H Lab Interpretation (test code = Abnormal 20340-6) [facility] CenterHIV 1/2 AG-AB WITH [id number] 12:32:00 Test Item Value Reference Range Interpretation Comments HIV Negative Negative Semi-quantitative (test code = 78092-3) JAMES (test code = Non-reactive for HIV-1 JAMES) antigen and HIV-1/HIV-2 antibodies. ?No laboratory evidence of HIV infection. ?Repeat in 2-4 weeks if acute HIV infection is suspected. [facility] CenterCBC WITH [id number] 12:18:00 Test Item Value Reference Range Interpretation [...] RDW-SD (test code = 44.4 fL 38.5-51.6 56320-6) RDW-CV (test code = 14.5 % 12.1-15.4 788-0) PLT (test code = See_Comment H [Automated 777-3) message] The sy stem which generated this result transmitted reference range : 150 - 328 10*3/ ?L. The reference r torito was not used to interpret this result as normal/abnormal . MPV (test code = 8.5 fL 9.8-13 L 41317-8) NRBC/100 WBC (test See_Comment [Automat ed code = 5622708166) message] The system which generated this result transmitted reference range : 0.0 - 10.0 /100 WBCs. The refer ence range was not u sed to interpret th is result as normal/abnormal . NRBC x10^3 (test code <0.01 See_Comment [Auto mated = 8756946032) message] The s ystem which generated this result transmitted reference range : 10*3/?L. The reference range was not used to interpret this result as normal/abnormal . GRAN MAT (NEUT) % 90.4 % (test code = 770-8) IMM GRAN % (test code 1.30 % = 8920135515) LYMPH % (test code = 7.1 % 736-9) MONO % (test code = 0.5 % 5905-5) EOS % (test code = 0.1 % 713-8) BASO % (test code = 0.6 % 706-2) GRAN MAT x10^3(ANC) 7.74 10*3/uL 1.99-6.95 H (test code = 2957482607) IMM GRAN x10^3 (test 0.11 10*3/uL 0-0.06 H code = 6092400360) LYMPH x10^3 (test code 0.61 10*3/uL 1.09-3.23 L = 731-0) MONO x10^3 (test code 0.04 10*3/uL 0.36-1.02 L = 742-7) EOS x10^3 (test code = <0.03 0.06-0.53 L 711-2) BASO x10^3 (test code 0.05 10*3/uL 0.01-0.09 = 704-7) POLYCHROMASIA (test 2+ See_Comment [Automa ronan code = 55250-2) message] The system which generated this result transmitted reference range : 2+. The referen ce range was not u sed to interpret th is result as normal/abnormal . BANDS (test code = Increased A 3927518030) Lab Interpretation Abnormal (test code = 75842-6) [facility] 11:48:00 Test Item Value Reference Range Interpretation Comments Procalcitonin (test 0.36 ng/mL <0.07 H code = 4505691537) JAMES (test code = JAMES) INTERPRETATION OF [...] lung abscess/empyema. For further information please refer to:[email or web address] Lab Interpretation Abnormal (test code = 49139-5) [facility] CenterLALAATE [id number] 10:53:00 Test Item Value Reference Range Interpretation Comments LDH (test code = 2491269050) 351 U/L 300-600 Lab Interpretation (test code = Normal 16977-3) [facility] CenterSEDIMENTATION [id number] 10:07:00 Test Item Value Reference Range Interpretation Comments ESR (test code = See_Comment H [Automated message] 6734850146) The system [employer] generated this result transmitted ref erence range: 0 - 10 m m/HR. The reference r torito was not used to interpret this result as normal/abnor mal. Lab Interpretation (test Abnormal code = 16514-6) [facility]PO[facility]SE (AUTOMATED)2020-08-21 09:45:00 Test Item Value Reference Range Interpretation Comments POCT GLU (test code = 5543202842) 287 mg/dL 70-110 H Lab Interpretation (test code = Abnormal 78254-5) [facility] CenterGlycosylated Hemoglobin (A1C)2020-08-21 09:29:00 Test Item Value Reference Range Interpretation Comments HGB A1C (test code = 4548-4) 9.8 % 4-6 H Lab Interpretation (test code = Abnormal 45288-5) [facility] CenterCOVID-19 (ID NOW RAPID TESTING)2020-08-21 09:13:00 Test Item Value Reference Range Interpretation Comments SARS-CoV-2 Rapid ID NOW Not Detected Not Detected (test code = 28752-2) JAMES (test code = JAMES) ID NOW COVID-19 Assay is an isothermal nucleic acid amplification test intended for the qualitative detection of nucleic acid from SARS-CoV-2 viral RNA in nasopharyngeal (BUSINESS COORDINATOR) specimens. It is used under Emergency Use [...] indicated. Lab Interpretation Normal (test code = 56647-4) [facility] CenterProthrombin Time / [id number] 08:59:00 Test Item Value Reference Range Interpretation Comments PROTIME PATIENT (test See_Comment H [Auto mated message] code = 5964-2) The system [employer] generated this result transmitted ref erence range: 10.1 - 1 2.6 Seconds. The reference range was not used to int erpret this result as normal/abnormal . INR (test code = 6301-6) Nor mal INR <1.1; Warfarin Therap eutic range 2.0 to 3. 0 or 2.5 to 3.5, dep ending upon the indica tions. Lab Interpretation (test Abnormal code = 32959-9) [facility] CenteraPTT2020-11-09 08:59:00 Test Item Value Reference Range Interpretation Comments APTT Patient (test code = See_Comment [ Automated message] 3173-2) The system [employer] generated this result transmitted ref erence range: 26 - 36 Seconds. The re ference range was not u sed to interpret this result as normal/abnor mal. Lab Interpretation (test Normal code = 72772-5) [facility] CenterBASI METABOLIC PANEL (NA, K, CL, CO2, GLUCOSE, BUN, CREATININE, CA)2020-08-21 08:52:00 Test Item Value Reference Range Interpretation Comments NA (test code = 136 mmol/L 135-145 3996066515) K (test code = 4.3 mmol/L 3.5-5 4706039340) CL (test code = 104 mmol/L 98-108 2876929746) CO2 TOTAL (test code = 24 mmol/L 23-31 6116187657) AGAP (test code = 2-16 5305082263) BUN (test code = 8 mg/dL 7-23 8792418548) GLUCOSE (test code = 308 mg/dL 70-110 H 6338235292) CREATININE (test code = 0.72 mg/dL 0.6-1.25 4485752965) CALCIUM (test code = 7.8 mg/dL 8.6-10.6 L 2456632826) eGFR Calculation mL/min/1.73m2 (Non-) (test code = 4958758750) eGFR Calculation mL/min/1.73m2 () (test code = 1043356230) JAMES (test code = JAMES) Association of [...] tests). Lab Interpretation Abnormal (test code = 60598-9) [facility] CenterHEPATIC FUNCTION PANEL (93304) (ALB,T.PRO,BILI T,BU/BC,ALT,AST,ALK PHOS)2020-08-21 08:52:00 Test Item Value Reference Range Interpretation Comments TOTAL BILI (test code = 9108940408) 0.8 mg/dL 0.1-1.1 BILI UNCON (test code = 9305966156) 0.3 mg/dL 0.1-1.1 BILI CONJ (test code = 5739509145) 0.0 mg/dL 0-0.3 T PROTEIN (test code = 6008254896) 5.7 g/dL 6.3-8.2 L ALBUMIN (test code = 9142422070) 2.7 g/dL 3.5-5 L ALK PHOS (test code = 2476902341) 245 U/L 34-122 H ALTv (test code = 1742-6) 37 U/L 5-50 AST(SGOT) (test code = 6475058303) 43 U/L 13-40 H Lab Interpretation (test code = Abnormal 99947-1) [facility]
--- NOTE | 2022-11-02 22:09 | EDPHYS ---
Physician Documentation [facility] Name: Kiel Ngo Age: 72 yrs Sex: Male : 1950 Arrival Date: 11/02/2022 Time: 22:03 Bed DX3 Private MD: ED Physician Nate Sifuentes HPI: 11/02 22:41 This 72 yrs old Male presents to ER via EMS with complaints of Pain. rt 22:41 The patient or guardian reports pain. Patient with chronic hip pain presents to the ED rt with a worsening of the chronic hip pain. States the Toradol is not working, questing pain medication. Denies other injury. Denies other acute complaints, fever. The patient states that the pain is aching nature, rating down the leg. No other aggravating alleviating factors.. Historical: - Allergies: 22:15 Demerol; tw5 22:15 metformin; tw5 22:15 Morphine; tw5 - Home Meds: 22:15 hydromorphone 4 mg Oral tab 1 tab three times a day [Active]; Klonopin 2 mg Oral TbDi 2 tw5 tabs 4 times a day [Active]; - PMHx: 22:15 Atrial fibrillation; chronic back pain; Chronic right leg pain; neuropathy; tw5 - PSHx: 22:15 back sx; R. Ankle SX; PANCREAS SX; tw5 - Immunization history:: Flu vaccine is not up to date. - Social history:: Smoking status: Patient denies any tobacco usage or history of. - Family history:: not pertinent. ROS: 22:41 Constitutional: Negative for fever, chills, and weight loss, Cardiovascular: Negative rt for chest pain, palpitations, and edema, Respiratory: Negative for shortness of breath, cough, wheezing, and pleuritic chest pain, Abdomen/GI: Negative for abdominal pain, nausea, vomiting, diarrhea, and constipation, Back: Negative for injury and pain, Skin: Negative for injury, rash, and discoloration, Neuro: Negative for headache, weakness, numbness, tingling, and seizure, Psych: Negative for depression, anxiety, suicide ideation, homicidal ideation, and hallucinations. 22:41 MS/extremity: Positive for pain, Negative for injury or acute deformity. Exam: 22:41 Constitutional: This is a well developed, well nourished patient who is awake, alert, rt and in no acute distress. Head/Face: Normocephalic, atraumatic. Chest/axilla: Normal chest wall appearance and motion. Nontender with no deformity. No lesions are appreciated. Cardiovascular: Regular rate and rhythm with a normal S1 and S2. No gallops, murmurs, or rubs. Normal PMI, no JVD. No pulse deficits. Respiratory: Lungs have equal breath sounds bilaterally, clear to auscultation and percussion. No rales, rhonchi or wheezes noted. No increased work of breathing, no retractions or nasal flaring. Abdomen/GI: Soft, non-tender, with normal bowel sounds. No distension or tympany. No guarding or rebound. No evidence of tenderness throughout. Skin: Warm, dry with normal turgor. Normal color with no rashes, no lesions, and no evidence of cellulitis. Neuro: Awake and alert, GCS 15, oriented to person, place, time, and situation. Cranial nerves II-XII grossly intact. Motor strength 5/5 in all extremities. Sensory grossly intact. Cerebellar exam normal. Normal gait. Psych: Awake, alert, with orientation to person, place and time. Behavior, mood, and affect are within normal limits. 22:41 Musculoskeletal/extremity: Tenderness to the bilateral hips, no deformities noted, pulse, motor, sensation intact. Vital Signs: 22:03 BP 147 / 83; Pulse 127; Resp 18; Pulse Ox 98% ; Weight 83.91 kg; Height 5 ft. 11 in. tw5 (180.34 cm); Pain 10/10; 22:17 Temp 98.4(O); tw5 22:03 Body Mass Index 25.80 (83.91 kg, 180.34 cm) tw5 MDM: 22:03 Patient medically screened. rt 22:41 Differential diagnosis: Neck pain, fracture, septic arthritis. Vital signs are stable, rt afebrile, symptoms not consistent with a septic arthritis, no injuries to suggest fracture. Data reviewed: vital signs, nurses notes. I considered the following discharge prescriptions or medication management in the emergency department Medications were administered in the Emergency Department. See MAR. External Records Reviewed: Inpatient record: Patient's for hip pain. Consistent with prior episodes. Administered Medications: 22:24 Drug: Dilaudid (HYDROmorphone) 1 mg Route: IM; Site: right deltoid; tw5 22:24 Follow up: Response: No adverse reaction; RASS: Alert and Calm (0) tw5 Disposition Summary: 11/02/22 22:08 Discharge Ordered Location: Home rt Problem: an ongoing problem rt Symptoms: have improved rt Condition: Stable rt Diagnosis - Chronic bilateral hip pain rt Followup: rt - With: Private Physician - When: 2 - 3 days - Reason: Discharge Instructions: - Discharge Summary Sheet rt - Hip Pain rt Forms: - Medication Reconciliation Form rt - Thank You Letter rt - Antibiotic Education rt - Prescription Opioid Use rt Signatures: Niesha Hsieh tw5 Nate Sifuentes MD MD rt
[2022-11-02] MEDS ORDERED: HYDROMORPHONE HCL 0.5 MG/0.5 ML INJ ONE (22:21)
--- NOTE | 2022-11-02 22:26 | ER ---
Nurse's Notes [facility] Name: Kiel Ngo Age: 72 yrs Sex: Male : 1950 Arrival Date: 11/02/2022 Time: 22:03 Bed DX3 Private MD: Diagnosis: Chronic bilateral hip pain Presentation: 11/02 22:03 Chief complaint:. Chief complaint: Patient states: "My hip pain is terrible today. The tw5 toradol isn't cutting it.". Coronavirus screen: Vaccine status: Patient reports being unvaccinated. Ebola Screen: Patient negative for fever greater than or equal to 101.5 degrees Fahrenheit, and additional compatible Ebola Virus Disease symptoms Patient denies exposure to infectious person. Patient denies travel to an Ebola-affected area in the 21 days before illness onset. Initial Sepsis Screen: Does the patient meet any 2 criteria? HR > 90 bpm. Does the patient have a suspected source of infection? No. Patient's initial sepsis screen is negative. Risk Assessment: Do you want to hurt yourself or someone else? Patient reports no desire to harm self or others. Onset of symptoms is unknown. 22:03 Acuity: JOZEF 5 tw5 22:03 Method Of Arrival: EMS: [facility] tw5 Triage Assessment: 22:15 General: Appears in no apparent distress. Behavior is calm, cooperative, appropriate tw5 for age. Pain: Pain currently is 10 out of 10 on a pain scale. Historical: - Allergies: 22:15 Demerol; tw5 22:15 metformin; tw5 22:15 Morphine; tw5 - Home Meds: 22:15 hydromorphone 4 mg Oral tab 1 tab three times a day [Active]; Klonopin 2 mg Oral TbDi 2 tw5 tabs 4 times a day [Active]; - PMHx: 22:15 Atrial fibrillation; chronic back pain; Chronic right leg pain; neuropathy; tw5 - PSHx: 22:15 back sx; R. Ankle SX; PANCREAS SX; tw5 - Immunization history:: Flu vaccine is not up to date. - Social history:: Smoking status: Patient denies any tobacco usage or history of. - Family history:: not pertinent. Screenin:24 [facility] ED Fall Risk Assessment (Adult) History of falling in the last 3 months, tw5 including since admission. Abuse screen: Denies threats or abuse. Denies injuries from another. Nutritional screening: No deficits noted. 22:25 Tuberculosis screening: No symptoms or risk factors identified. tw5 Assessment: 22:24 General: Appears in no apparent distress. Behavior is calm, cooperative, appropriate tw5 for age. Vital Signs: 22:03 BP 147 / 83; Pulse 127; Resp 18; Pulse Ox 98% ; Weight 83.91 kg; Height 5 ft. 11 in. tw5 (180.34 cm); Pain 10/10; 22:17 Temp 98.4(O); tw5 22:03 Body Mass Index 25.80 (83.91 kg, 180.34 cm) tw5 ED Course: 22:03 Patient arrived in ED. tw5 22:03 Nate Sifuentes MD is Attending Physician. rt 22:15 Triage completed. tw5 22:24 Patient has correct armband on for positive identification. tw5 22:24 No provider procedures requiring assistance completed. Patient did not have IV access tw5 during this emergency room visit. 22:25 Arm band placed on. tw5 Administered Medications: 22:24 Drug: Dilaudid (HYDROmorphone) 1 mg Route: IM; Site: right deltoid; tw5 22:24 Follow up: Response: No adverse reaction; RASS: Alert and Calm (0) tw5 Medication: 22:24 VIS not applicable for this client. tw5 Outcome: 22:08 Discharge ordered by . rt 22:24 Discharged to home via ambulance. tw5 22:24 Condition: stable 22:24 Condition: good 22:24 Discharge instructions given to patient, Instructed on discharge instructions, follow up and referral plans. Demonstrated understanding of instructions, follow-up care. 22:25 Patient left the ED. tw5 Signatures: Niesha Hsieh tw5 Nate Sifuentes MD MD rt
[2022-11-03 01:22] VITALS: BP 147/83; TEMP 98.4; O2SAT 98
== END 2022-11-02 22:25 | disposition home or self-care (01) ==
LOC: ER 21:59
DX: M25.551 Pain in right hip (principal); M25.552 Pain in left hip; Z88.5 Allergy status to narcotic agent; Z88.8 Allergy status to other drugs, medicaments and biological substances
CPT/HCPCS: 96372; 99283; J1170

== ENCOUNTER 2022-11-03 12:03 | Emergency (ER) | payer OTHER ==
--- OUTSIDE RECORDS SUMMARY | 2022-11-03 12:11 | XMS REPORT | Continuity of Care Document ---
:1950 Author Organization [facility] t Address [address] [place] [address] Care Team Providers Name Role Phone CALVIN WORLEY Primary Care Physician Unavailable KELLY WASHINGTON Attending Clinician Unavailable SWEETIE STOUT Attending Clinician Unavailable Sweetie Stout MD Attending Clinician ADRIANA HAINES Attending Clinician Unavailable Calvin Worley MD Attending Clinician Ruchi Peters RN Attending Clinician Paco Lacey DO Attending Clinician Vika Harrison MD Attending Clinician Alvarez Rowe MD Attending Clinician ALVRAEZ ROWE Attending Clinician Unavailable PACO LACEY Attending Clinician Unavailable Doctor Unassigned, [place] Attending Clinician Unavailable Wilder VILLAREAL, Angi K.HWong Attending Clinician Jl Mccabe MD Attending Clinician Kelly Washington MD Attending Clinician [phone] Mukul Gallardo MD Attending Clinician MUKUL GALLARDO Admitting Clinician Unavailable Harrison MD, Premal G Admitting Clinician KRUPA VIKA G Admitting Clinician Unavailable Nicci VILLAREAL, Mukul Anand Admitting Clinician Payers Payer Name Policy Type Policy Number Effective Date Expiration Date Tony doe MEDICARE PART A [id number] 2007 \\T\\ B 00:00:00 [employer] INDEMNITY [id number] 2016 00:00:00 MEDICARE PART A [id number] 2014 \\T\\ B - MEDICARE 00:00:00 INDEMNITY/TRADITIO [id number] NAL CHOICE - [employer] 00:00:00 Problems Condition [...] ents Source Name Type Date Date Clinician [place] Prop[facility]i Active Rash 2019- Univers ty to [...] Quantity Comments Source Exposure to Not sure [place] of SARS-CoV-2 [place] [facility] (event) Branch History of Chews Tobacco University of tobacco use [place] [facility] History SDOH 2020-11-17 2020-11-17 5 University o f Financial 00:00:00 00:00:00 [place] [facility] History SDAZ Food 2020-11-17 2020-11-17 1 Univers ity of Worry 00:00:00 00:00:00 [place] [facility] History SDOH Food 2020-11-17 2020-11-17 1 Univers ity of Scarcity 00:00:00 00:00:00 [place] [facility] History SDOH 2020-11-17 2020-11-17 1 University o f Transport Med 00:00:00 00:00:00 [place] [facility] al [facility] History SDOH 2020-11-17 2020-11-17 1 University o f Transport Non-Med 00:00:00 00:00:00 [facility] edical Branch Education 2020-11-16 2020-11-16 21 [place] of 00:00:00 00:00:00 [facility] Alcohol intake 2020-11-16 2020-11-16 Ex-drinker [facility] 00:00:00 00:00:00 (finding) [facility] Tobacco use and 2020-08-21 2020-08-21 Former user Universi ty of exposure 00:00:00 00:00:00 [facility] Tobacco Comment 2020-08-21 2020-08-21 quit 10 years Univer sity of 00:00:00 00:00:00 ago, started in [place] Med ical 2nd year of Branch college (~40 years) Alcohol Comment 2020-08-21 2020-08-21 Used to have 2-3 Uni versity of 00:00:00 00:00:00 six-packs of [place] [facility]ica l beer daily x 20 Branch years, quit 2004 History [facility] 2020-08-21 2020-08-21 99 University o f Alcohol Frequency 00:00:00 00:00:00 [place] [facility] edical Branch History [facility] 2020-08-21 2020-08-21 99 [place] o f Alcohol Std 00:00:00 00:00:00 [place] [facility] Drinks Branch History [facility] 2020-08-21 2020-08-21 99 [place] o f Alcohol Binge 00:00:00 00:00:00 [facility] [place] Sex Assigned At [birth year] Universit y of 00:00:00 00:00:00 [facility] Smoking Status Start Date Stop Date Source [...] 0845, Until Discontinu ed, Routine amLODIPine Yes [id number] 10mg Take 1 Univers 10 mg 3-07 tablet by ity of tablet 00:00: mouth [place] 00 daily. Medical Branch clotrimazol Yes [id number] Apply to Univers e 1 % 3-07 face/ears, ity of topical 00:00: armpits, [place] cream 00 pannus and Medical back/any Branch other rash twice a day fluocinonid 0 Yes [id number] Apply to Univers e 0.05 % 3-07 scalp ity of solution 00:00: twice a [place] 00 day Medical Branch triamcinolo Yes [id number] Apply to Univers ne 3-07 back, ity of acetonide 00:00: armpits [place] 0.1 % cream 00 and other Med ical affected Branch areas twice daily, please mix with clotrimazo le hydrOXYzine Yes [id number] 10mg Take 1 Univers 10 mg 3-07 tablet by ity of tablet 00:00: mouth 2 00 (two) Medical times Branch daily. amLODIPine Yes [id number] 10mg Take 1 Univers 10 mg 3-07 tablet by ity of tablet 00:00: mouth [place] 00 daily. Medical Branch clotrimazol Yes [id number] Apply to Univers e 1 % 3-07 face/ears, ity of topical 00:00: armpits, [place] cream 00 pannus and Medical back/any Branch other rash twice a day fluocinonid Yes [id number] Apply to Univers e 0.05 % 3-07 scalp ity of solution 00:00: twice a day Medical Branch triamcinolo Yes [id number] Apply to Univers ne 3-07 back, ity of acetonide 00:00: armpits [place] 0.1 % cream 00 and other Med ical affected Branch areas twice daily, please mix with clotrimazo le hydrOXYzine Yes [id number] 10mg Take 1 Univers 10 mg 3-07 tablet by ity of tablet 00:00: mouth 2 [place] 00 (two) Medical times Branch daily. amLODIPine Yes [id number] 10mg Take 1 Univers 10 mg 3-07 tablet by ity of tablet 00:00: mouth [place] 00 daily. Medical Branch clotrimazol 0 Yes [id number] Apply to Univers e 1 % 3-07 face/ears, ity of topical 00:00: armpits, [place] cream 00 pannus and Medical back/any Branch other rash twice a day fluocinonid 2020-0 Yes [id number] Apply to Univers e 0.05 % 3-07 scalp ity of solution 00:00: twice a day Medical Branch triamcinolo 2020-0 Yes [id number] Apply to Univers ne 3-07 back, ity of acetonide 00:00: armpits [place] 0.1 % cream 00 and other Med ical affected Branch areas twice daily, please mix with clotrimazo le hydrOXYzine Yes [id number] 10mg Take 1 Univers 10 mg 3-07 tablet by ity of tablet 00:00: mouth 2 [place] (two) Medical times Branch daily. amLODIPine Yes [id number] 10mg Take 1 Univers 10 mg 3-07 tablet by ity of tablet 00:00: mouth [place] 00 daily. Medical Branch clotrimazol Yes [id number] Apply to Univers e 1 % 3-07 face/ears, ity of topical 00:00: armpits, [place] cream 00 pannus and Medical back/any Branch other rash twice a day fluocinonid Yes [id number] Apply to Univers e 0.05 % 3-07 scalp ity of solution 00:00: twice a day Medical Branch triamcinolo 0 Yes [id number] Apply to Univers ne 3-07 back, ity of acetonide 00:00: armpits [place] 0.1 % cream 00 and other Med ical affected Branch areas twice daily, please mix with clotrimazo le hydrOXYzine Yes [id number] 10mg Take 1 Univers 10 mg 3- tablet by ity of tablet 00:00: mouth 2 (two) Medical times Branch daily. cephALEXin 2020-2020- No [id number] 500mg Take 1 Univers 500 mg -04 14- capsule by ity of capsule 00:00: 05:59 mouth [place] 00 :00 every 6 Medical (six) Branch hours for 3 days. cephALEXin 2020-0 2020- No [id number] 500mg Take 1 Univers 500 mg 3-04 14- capsule by ity of capsule 00:00: 05:59 mouth [place] 00 :00 every 6 Medical (six) Branch hours for 3 days. hydrOXYzine 2020-2020- No [id number] 10mg Take 1 Univers 10 mg 3- 03-07 tablet by ity of tablet 00:00: 00:00 mouth 2 [place] 00 :00 (two) Medical times [place] daily. morpHINE Yes 4mg 4 mg, Slow Uni vers injection 4 -06 IV Push, ity of mg 22:40: Q6HPRN, [place] 02 Starting Medical 12/16/20 [place] at 1640, Until Discontinu ed, Routine, Pain [...] 00 :00 dose, Sat Medical 12/16/20 at [place] 0515, Routine lactated 2020- No 1000mL at 125 Univ ers ringers IV 12-16 03-06 mL/hr, ity of infusion 01:00: 00:16 1,000 mL, [place] 1,000 mL 00 :00 IV Medical Infusion, [place] ONCE, 1 dose, 12/15/20 at 1900, Routine iohexol 2020- No 100mL 100 mL, Unive rs (OMNIPAQUE 12-15-05 Intravenou it y of 350 22:24: 22:24 s, ONCE, 1 [place] BULK-100 00 :00 dose, Fri Medica l mL) 12/15/20 at [place] injection 1645, 100 mL Routine cephALEXin 2020- [...] 0.9% 2020- No 500mL at 999 [facility] ers (NS) bolus 12-15-05 mL/hr, 500 it y of infusion 16:00: 15:26 mL, IV [place] 500 mL 00 :00 Piggyback, Medical ONCE, 1 Branch dose, Fri12/15/20 at 1000, STAT HYDROmorpho Yes 4mg 4 mg, [facility] ne 05 Oral, BID, ity of (DILAUDID) 15:30: First dose [place] tablet 4 mg 00 (after Medica l last Branch modificati on) on Fri12/15/20 at 0930, Until Discontinu ed, Routine amLODIPine 2020- No [id number] 10mg Take 1 Univers 10 mg 12-1507 tablet by ity of tablet 00:00: 00:00 mouth [place] 00 :00 daily. Medical Branch HYDROmorpho 2020- No 1mg 1 mg, [facility] ne 12-14 03-05 Oral, ity of (DILAUDID) 17:35: 15:18 Q6HPRN, [place] tablet 1 mg 30 :[address] [facility] 12/14/20 Branch at 1135, Until Fri12/15/20 at 0918, Routine, Pain (scale 7-10) hydrOXYzine Yes 10mg 10 mg, [facility] ers (ATARAX) 304 Oral, BID, ity o f tablet 10 17:30: First dose [place] mg 00 on [facility] 12/14/20 at Branch 1130, Until Discontinu ed, Routine lisinopriL 0 Yes 5mg 5 mg, Univer s (PRINIVIL,Z -04 Oral, ity of ESTRIL) 17:30: DAILY, [place] tablet 5 mg 00 First dose Me dical on [facility] Branch 12/14/20 at 1130, Until Discontinu ed, Routine triamcinolo 2020- No [id number] Apply to Univers ne 12-14 back, ity of acetonide 00:00: 00:00 armpits [place] 0.1 % cream 00 :00 and other Med ical affected Branch areas twice daily, please mix with clotrimazo le clotrimazol 2020- No [id number] Apply to Univers e 1 % 12-14 face/ears, ity of topical 00:00: 00:00 armpits, [place] cream 00 :00 pann[place] and Medical back/any Branch other rash twice a day fluocinonid 2020- No [id number] Apply to Univers e 0.05 % 12-14 scalp ity of solution 00:00: 00:00 twice a [place] 00 :00 day Medical Branch hydrOXYzine 2020- No [id number] 10mg Take 1 Univers 10 mg 12-14 [...] 15U 15 Units, [facility] [place] [facility] rs glargine 12-12 Subcutaneo ity o f (LANTUS 15:00: us, DAILY, [place] U-100) 00 First dose Medical injection on [facility] 15 Units 12/12/20 at 0900, Until [...] 00 Fri12/11/20 Me dical cream at 1315, [place] Until Discontinu ed, Routine hydrocortis 0 Yes [...] ity of 1,000 mg in 19:00: 17:35 PigCamby, [place] NaCl 0.9% 00 :26 Q8H ABX, [...] Yes 5U 5 Units, [facility] lispro 12-11 Subcutaneo ity of (human) 18:00: us, TID [place] (HumaLOG 00 MEALS, Medical U-100) First dose Branch injection 5 on Mon Units 12/11/20 at 1200, Until Discontinu ed Polyethylen Yes 17g 17 g, [facility] [place] [facility] rs e Glycol 12-11 Oral, ity of 3350 17:47: [id number], [place] (MIRALAX) 05 Starting Medica l powder [...] piperacilli No 3.375g 3.375 g, [facility] n-tazobacta 12-11 IV ity of m (ZOSYN) 12:00: 17:48 [place]gyback, [place] injection 00 :24 Q6H, First Medi jose c 3.375 g dose on Branch Fri12/11/20 at 0600, Until Discontinu ed, KAHLIL
Re ason for Anti-Infec tive: Empiric Therapy for Suspected Infection< br>Empiric Therapy Site: Skin / Soft tissue
Duration of therapy: 72 hours sennosides- Yes [id number] 1{tbl} Take 1 [facility] docusate 2-09 tablet by ity of sodium 00:00: mouth 2 [place] 8.6-50 mg 00 (two) Medical per tablet times Branch daily. hydrocortis Yes [id number] Apply to [facility] one 2.5 % 11-21 affected ity of cream 00:00: area(s) 2 [place] 00 (two) Medical times Branch daily. blood sugar Yes [id number] Use to [facility] diagnostic 2 check ity of (FREESTYLE 00:00: blood [place] LITE 00 glucose Medical STRIPS) 4-5 times Branch strip daily. Polyethylen Yes [id number] 17g Take 1 Univers e Glycol 2-09 Packet by ity of 3350 17 00:00: mouth [place] gram powder 00 every 24 Medi jose c (twenty-fo Branch ur) hours as needed for Constipati on. sennosides- Yes [id number] 1{tbl} Take 1 Univers docusate 2-09 tablet by ity of sodium 00:00: mouth 2 [place] 8.6-50 mg 00 (two) Medical per tablet times Branch daily. hydrocortis Yes [id number] Apply to Univers one 2.5 % 2-09 affected ity of cream 00:00: area(s) 2 [place] 00 (two) Medical times Branch daily. blood sugar Yes [id number] Use to Univers diagnostic 11-21 check ity of (FREESTYLE 00:00: blood [place] LITE 00 glucose Medical STRIPS) 4-5 times Branch strip daily. Polyethylen Yes [id number] 17g Take 1 Univers e Glycol 2-09 Packet by ity of 3350 17 00:00: mouth [place] gram powder 00 every 24 Medi jose c (twenty-fo Branch ur) hours as needed for Constipati on. sennosides- Yes [id number] 1{tbl} Take 1 Univers docusate 2-09 tablet by ity of sodium 00:00: mouth 2 [place] 8.6-50 mg 00 (two) Medical per tablet times Branch daily. hydrocortis Yes [id number] Apply to Univers one 2.5 % 2-09 affected ity of cream 00:00: area(s) 2 [place] 00 (two) Medical times Branch daily. blood sugar Yes [id number] Use to Univers diagnostic 11-21 check ity of (FREESTYLE 00:00: blood [place] LITE 00 glucose Medical STRIPS) 4-5 times Branch strip daily. Polyethylen 2020-0 Yes [id number] 17g Take 1 Univers e Glycol 2-09 Packet by ity of 3350 17 00:00: mouth [place] gram powder 00 every 24 Medi jose c (twenty-fo Branch ur) hours as needed for Constipati on. sennosides- Yes [id number] 1{tbl} Take 1 Univers docusate 2-09 tablet by ity of sodium 00:00: mouth 2 [place] 8.6-50 mg 00 (two) Medical per tablet times Branch daily. hydrocortis Yes [id number] Apply to [facility] one 2.5 % 11-21 affected ity of cream 00:00: area(s) 2 [place] 00 (two) Medical times Branch daily. blood sugar Yes [id number] Use to [facility] diagnostic 11-21 check ity of (FREESTYLE 00:00: blood [place] LITE 00 glucose Medical STRIPS) 4-5 times Branch strip daily. Polyethylen Yes [id number] 17g Take 1 Univers e Glycol 11-21 Packet by ity of 3350 17 00:00: mouth [place] gram powder 00 every 24 Medi jose c (twenty-fo Branch ur) hours as needed for Constipati on. Insulin 2020- No [id number] 15U inject 15 Univers Glargine 11-21- Units ity of (LANTUS 00:00: 05:59 under the [employer] SOLOSTAR 00 :00 skin every Medic al U-100 morning Branch INSULIN) for 30 100 unit/mL days. (3 mL) injection venlafaxine 2020- No [id number] 150mg Take 1 Univers XR 150 mg 11-21 capsule by ity of 24 hr 00:00: 05:59 mouth 3 [place] capsule 00 :00 (three) Medical times Branch daily for 30 days. Insulin 2020- No [id number] 15U inject 15 Univers Glargine 11-21-12 Units ity of (LANTUS 00:00: 05:59 under the [employer] [facility] SOLOSTAR 00 :00 skin every Medic al U-100 morning Branch INSULIN) for 30 100 unit/mL days. (3 mL) injection venlafaxine 2020- No [id number] 150mg Take 1 Univers XR 150 mg 11-21- capsule by ity of 24 hr 00:00: 05:59 mouth 3 [place] capsule 00 :00 (three) Medical times Branch daily for 30 days. triamcinolo 2020- No [id number] Apply to [facility] ne 11-21-04 area(s) 2 ity of acetonide 00:00: 00:00 (two) [place] 0.1 % cream 00 :00 times Medical daily. Branch cephALEXin 2020- No [id number] 1000mg Take 2 Univers 500 mg 11-21 capsules ity of capsule 00:00: 00:00 by mouth 3 [place] 00 :00 (three) Medical times Branch daily. doxycycline 2020- No [id number] 100mg Take 1 Univers hyclate 100 11-21 capsule by i ty of mg capsule 00:00: 00:00 mouth [place] 00 :00 every 12 Medical (twelve) Branch hours. lactobacill 2020- No [id number] 1{tbl} Take 1 Univers us 11-21 tablet by ity of acidophilus 00:00: 00:00 mouth 2 [place] 25 million 00 :00 (two) Medical cell -100 times Branch mg captab daily. bisacodyL 2020- No [id number] 10mg Insert 1 Univers 10 mg 11-21 Suppositor ity of suppository 00:00: 00:00 y into [place] 00 :00 rectum at Medical bedtime as Branch needed for Constipati on. ALPRAZolam 2020- No [id number] .25mg Take 1 Univers (XANAX) 11-21 tablet by ity of 0.25 mg 00:00: 00:00 mouth 2 [place] tablet 00 :00 (two) Medical times Branch daily. hydrOXYzine 2020- No [id number] 20mg Take 2 Univers 10 mg 11-21 [...] ity of (NOVOLOG 01:13: under the [facility] FLEXPEN SC) 36 skin. Medical Branch [...] ity of (NOVOLOG 01:13: under the [facility] FLEXPEN [place]) 36 skin. Medical Branch [...] ity of (NOVOLOG 01:13: under the [facility] s FLEXPEN SC) 36 skin. Medical Branch ALPRAZolam 2019-10 Yes .25mg Take 0.25 U nivers (XANAX) 1-12 mg by ity of 0.25 mg 01:13: mouth 2 [place] tablet 36 (two) Medical times Branch daily. HYDROXYZINE 2019-10 2020- No 25mg Take 25 mg Univers PAMOATE 1-11 11-11 by mouth ity of ORAL 20:04: 00:00 daily. [place] 34 :00 Medical Branch hydrocortis 2019-10 Yes [id number] Apply to Univers one 2.5 % 1-11 affected ity of cream 00:00: area(s) 2 [place] 00 (two) Medical times Branch daily. hydrOXYzine 2019-10 Yes [id number] 20mg Take 2 Univers 10 mg 1-11 tablets by ity of tablet 00:00: mouth [place] 00 every 8 Medical (eight) Branch hours as needed for Itching or Anxiety. Polyethylen 2019-10 Yes [id number] 17g Take 1 Univers e Glycol 1-11 Packet by ity of 3350 17 00:00: mouth [place] gram powder 00 every 24 Medi jose c (twenty-fo Branch ur) hours as needed for Constipati on. hydrocortis 2019-10 Yes [id number] Apply to Univers one 2.5 % 1-11 affected ity of cream 00:00: area(s) 2 [place] 00 (two) Medical times Branch daily. hydrOXYzine 2019- Yes [id number] 20mg Take 2 Univers 10 mg 1-11 tablets by ity of tablet 00:00: mouth [place] 00 every 8 Medical (eight) Branch hours as needed for Itching or Anxiety. Polyethylen 2019- Yes [id number] 17g Take 1 Univers e Glycol 1-11 Packet by ity of 3350 17 00:00: mouth [place] gram powder 00 every 24 Medi jose c (twenty-fo Branch ur) hours as needed for Constipati on. hydrocortis 2019- Yes [id number] Apply to Univers one 2.5 % 1-11 affected ity of cream 00:00: area(s) 2 [place] (two) Medical times Branch daily. hydrOXYzine 2019-10 Yes [id number] 20mg Take 2 Univers 10 mg 1-11 tablets by ity of tablet 00:00: mouth [place] 00 every 8 Medical (eight) Branch hours as needed for Itching or Anxiety. Polyethylen 2019- Yes [id number] 17g Take 1 Univers e Glycol 1-11 Packet by ity of 3350 17 00:00: mouth [place] gram powder 00 every 24 Medi jose c (twenty-fo Branch ur) hours as needed for Constipati on. hydrocortis 2019-10 Yes [id number] Apply to Univers one 2.5 % 1-11 affected ity of cream 00:00: area(s) 2 [place] (two) Medical times Branch daily. hydrOXYzine 2019-10 Yes [id number] 20mg Take 2 Univers 10 mg 1-11 tablets by ity of tablet 00:00: mouth [place] 00 every 8 Medical (eight) Branch hours as needed for Itching or Anxiety. Polyethylen 2019-10 Yes [id number] 17g Take 1 Univers e Glycol 1-11 Packet by ity of 3350 17 00:00: mouth [place] gram powder 00 every 24 Medi jose c (twenty-fo Branch ur) hours as needed for Constipati on. hydrocortis 2019-10 Yes [id number] Apply to Univers one 2.5 % 1-11 affected ity of cream 00:00: area(s) 2 [place] 00 (two) Medical times Branch daily. hydrOXYzine 2019-10 Yes [id number] 20mg Take 2 Univers 10 mg 1-11 tablets by ity of tablet 00:00: mouth [place] 00 every 8 Medical (eight) Branch hours as needed for Itching or Anxiety. Polyethylen 2019- Yes [id number] 17g Take 1 Univers e Glycol 1-11 Packet by ity of 3350 17 00:00: mouth [place] gram powder 00 every 24 Medi jose c (twenty-fo Branch ur) hours as needed for Constipati on. hydrocortis 2019-10 Yes [id number] Apply to Univers one 2.5 % 1-11 affected ity of cream 00:00: area(s) 2 [place] 00 (two) Medical times Branch daily. hydrOXYzine 2019- Yes [id number] 20mg Take 2 Univers 10 mg 1-11 tablets by ity of tablet 00:00: mouth [place] 00 every 8 Medical (eight) Branch hours as needed for Itching or Anxiety. Polyethylen 2019- Yes [id number] 17g Take 1 Univers e Glycol 1-11 Packet by ity of 3350 17 00:00: mouth [place] gram powder 00 every 24 Medi jose c (twenty-fo Branch ur) hours as needed for Constipati on. hydrocortis 2019- Yes [id number] Apply to Univers one 2.5 % 1-11 affected ity of cream 00:00: area(s) 2 [place] 00 (two) Medical times Branch daily. hydrOXYzine 2019- Yes [id number] 20mg Take 2 Univers 10 mg 1-11 tablets by ity of tablet 00:00: mouth [place] 00 every 8 Medical (eight) Branch hours as needed for Itching or Anxiety. Polyethylen 2019- Yes [id number] 17g Take 1 Univers e Glycol 1-11 Packet by ity of 3350 17 00:00: mouth [place] gram powder 00 every 24 Medi jose c (twenty-fo Branch ur) hours as needed for Constipati on. triamcinolo 2019- 2020- No [id number] Apply to Univers ne 10-23 area(s) 2 ity of acetonide 00:00: 05:59 (two) [place] 0.1 % cream 00 :00 times Medical daily for Branch 14 days. triamcinolo 2019- 2020- No [id number] Apply to Univers ne 10-23 area(s) 2 ity of acetonide 00:00: 05:59 (two) [place] 0.1 % cream 00 :00 times Medical daily for Branch 14 days. triamcinolo 2020- 2020- No [id number] Apply to [facility] ne 10-23 area(s) 2 ity of acetonide [...] tablet 1 mg 53 Starting [facility] 08/22/20 at 0907, Until Discontinu ed, Routine, Pain (scale 7-10) hydrocortis 2019-10 Yes Topical Uni vers one 2.5 % 1-10 (Apply To ity o f cream 02:00: Affected [place] 00 Areas), Medical BID, First Branch dose on [facility] 08/21/20 at 2000, Until Discontinu ed, Routine triamcinolo 2019-10 Yes Topical, Un toi ne 1-10 BID, First ity of acetonide 02:00: dose on [place] (TRIDERM) [facility] Medical 0.1 % cream 08/21/20 at Br anch 2000, Until Discontinu ed, Routine hydrOXYzine 2019-10 Yes 20mg 20 mg, Univ ers (ATARAX) 09 Oral, ity of tablet 20 17:39: Q8HPRN, [place] mg 12 Starting [facility] 08/21/20 at 1139, Until Discontinu ed, Routine, Itching, Anxiety sennosides- 2019-10 Yes 1{tbl} 1 tablet, Univers docusate 10-21 Oral, ity of sodium 15:00: DAILY, [place] (SENOKOT-S) 00 First dose Me dical 8.6-50 mg on [facility] per tablet 08/21/20 at 1 tablet [...] dose [place] capsule 150 00 on [facility] Medica l mg 08/21/20 at Branch [...] 25 59 :43 Starting Medica l mg [facility] 08/21/20 at 0656, Until Fri08/21/20 at 1139, Routine, Itching, Mild Rash, Congestion /Allergies , alternate with hydroxyzin e hydrOXYzine 2019-10- No 10mg 10 mg, Uni vers (ATARAX) 10-21 Oral, ity of tablet 10 10:20: 12:57 Q6HPRN, [place] mg 22 :12 Starting Medical [facility] 08/21/20 at 0420, Until Fri08/21/20 at [...] 1 ity o f 09:30: 09:14 dose, [facility] 00 :00 08/21/20 at [facility] 0330, Branch Routine Polyethylen 2019-10 Yes 17g 17 g, [facility] Glycol 10-21 Oral, ity of 3350 08:29: [id number], [place] (MIRALAX) 09 Starting Medica l powder 17 g [facility] 08/21/20 at 0229, Until Discontinu ed, Routine, Constipati on lanolin 2019-10 Yes Topical, Univer s alcohol-mo- 10-21 PRN, ity of w.pet-ceres 08:26: Starting [place] (EUCERIN) 30 [facility] Medical cream 08/21/20 at Branch 0226, [...] 1-3) sotalol 2019-10 2020- No Take by [facility] s (BETAPACE) 10-21 mouth ity of 240 mg 07:43: 00:00 every 12 [place] tablet 30 :00 (twelve) Medical hours. Branch blood sugar Yes Use to [facility] diagnostic 4-25 check ity of (FREESTYLE 00:00: blood [place] LITE 00 glucose Medical STRIPS) 4-5 times Branch strip daily. blood sugar Yes Use to [facility] diagnostic 4-25 check ity of (FREESTYLE 00:00: blood [place] LITE 00 glucose Medical STRIPS) 4-5 times Branch strip daily. blood sugar Yes Use to [facility] diagnostic 4-25 check ity of (FREESTYLE 00:00: blood [place] LITE 00 glucose Medical STRIPS) 4-5 times Branch strip daily. blood sugar Yes Use to [facility] diagnostic 4-25 check ity of (FREESTYLE [...] 2021-08-22 13:00:00 148 mm[Hg] Univer sity of [facility] Diastolic blood 2021-08-22 13:00:00 84 mm[Hg] Unive rsity of [facility] Heart rate 2021-08-22 13:00:00 103 /min [facility] Respiratory rate 2021-08-22 13:00:00 18 /min [facility] Oxygen saturation in 2021-08-22 13:00:00 95 /min University of Arterial blood by [facility] Pulse oximetry [place] Body temperature 2021-08-22 12:22:00 36.72 [place] [facility] Systolic blood 2020-12-17 18:35:00 139 mm[Hg] Univer sity of [facility] Diastolic blood 2020-12-17 18:35:00 87 mm[Hg] Unive rsity of [facility] Heart rate 2020-12-17 18:35:00 110 /min [facility] Body temperature 2020-12-17 18:35:00 37.72 [place] [facility] Respiratory rate 2020-12-17 18:35:00 18 /min [facility] saturation in 2020-12-17 18:35:00 93 /min University of Arterial blood by [facility] Pulse oximetry Branch Body height 2020-12-12 [...] /min University of Arterial blood by [facility] Pulse oximetry Branch Body height 2020-12-12 [...] /min University of Arterial blood by [facility] Pulse oximetry Branch Body weight 2020-08-21 07:20:00 104.962 kg [facility] BMI 2020-08-21 07:20:00 32.27 kg/m2 [facility] [place] [facility] Systolic blood 2020-08-23 19:27:00 140 mm[Hg] Univer sity of pressure [facility] Diastolic blood 2020-08-23 19:27:00 79 mm[Hg] [facility] Heart rate 2020-08-23 19:27:00 99 /min [facility] Body temperature 2020-08-23 19:27:00 36 [place] [facility] Respiratory rate 2020-08-23 19:27:00 18 /min [facility] Oxygen saturation in 2020-08-23 19:27:00 93 /min [facility] blood by [facility] Pulse oximetry [place] Body weight 2020-08-21 07:20:00 104.962 kg [facility] BMI 2020-08-21 07:20:00 32.27 kg/m2 [facility] Procedures Procedure Date / Time Performing Clinician Source Performed POCT GLUCOSE (AUTOMATED) 2020-12-17 15:42:00 Favio Harrisonal G [facility] BASIC METABOLIC PANEL 2020-12-17 10:45:00 Paul Bean [facility] (NA, K, CL, CO2, GLUCOSE, [place] Medica l Branch BUN, CREATININE, CA) CBC WITH DIFF 2020-12-17 10:45:[address] [facility] POCT GLUCOSE (AUTOMATED) 2020-12-17 02:36:00 Harrison [facility] Uni [facility] XR TIBIA FIBULA 2 VW LEFT 2020-12-16 23:38:00 [facility]) 2020-12-16 23:20:00 Harrison, [facility] ([facility]ATED) 2020-12-16 20:10:00 Harrison, [facility]al [facility] PO[facility]UCOSE (AUTOMATED) 2020-12-16 14:43:00 [facility] BASIC METABOLIC PANEL 2020-12-16 13:51:00 Paul Bean [facility] (NA, K, CL, CO2, GLUCOSE, [facility] BUN, CREATININE, CA) CBC WITH DIFF 2020-12-16 13:51:[address] [facility] POCT GLUCOSE (AUTOMATED) 2020-12-16 04:00:00 Harrison, Premal G Uni versity of [facility] POCT GLUCOSE (AUTOMATED) 2020-12-16 00:14:00 Harrison, Premal G Uni versity [facility] CT CHEST PULMONARY 2020-12-15 22:29:38 Paul Bean [facility] ANGIOGRAM [facility] POCT GLUCOSE (AUTOMATED) 2020-12-15 19:26:00 Harrison, Premal G [facility] POCT GLUCOSE (AUTOMATED) 2020-12-15 15:13:00 Krupa, Premal G Uni [facility] HB ECG ROUTINE & RHYTHM 2020-12-15 14:25:27 Cailin Romo [facility] MAGNESIUM 2020-12-15 12:01:[address] [facility] BASIC METABOLIC PANEL 2020-12-15 12:01:00 Paul Bean [facility] (NA, K, CL, CO2, GLUCOSE, [facility] BUN, CREATININE, CA) CBC WITH DIFF 2020-12-15 12:01:[address] [facility] POCT GLUCOSE (AUTOMATED) 2020-12-15 03:57:00 Harrison, Premal G Uni versity of [facility] POCT GLUCOSE (AUTOMATED) 2020-12-14 23:31:00 Harrison, Premal G Uni versity of [facility] POCT GLUCOSE (AUTOMATED) 2020-12-14 19:08:00 Harrison, Premal G Uni versity of [facility] POCT GLUCOSE (AUTOMATED) 2020-12-14 15:11:00 Harrison, Premal G Uni versity of [facility] POCT GLUCOSE (AUTOMATED) 2020-12-14 02:36:00 Harrison, Premal G Uni versity of [facility] POCT GLUCOSE (AUTOMATED) 2020-12-13 23:32:00 Harrison, Premal G Uni versity of [facility] POCT GLUCOSE (AUTOMATED) 2020-12-13 18:08:00 Harrison, Premal G Uni versity of [facility] BASIC METABOLIC PANEL 2020-12-13 15:39:00 Paul Bean [facility] (NA, K, CL, CO2, GLUCOSE, [facility] BUN, CREATININE, CA) CBC WITH DIFF 2020-12-13 15:39:[address] [facility] POCT GLUCOSE (AUTOMATED) 2020-12-13 14:06:00 Harrison, Premal G Uni versity of [facility] POCT GLUCOSE (AUTOMATED) 2020-12-13 03:07:00 Harrison, Premal G Uni versity of [facility] POCT GLUCOSE (AUTOMATED) 2020-12-12 23:52:00 Harrison, Premal G Uni versity of [facility] POCT GLUCOSE (AUTOMATED) 2020-12-12 20:28:00 Harrison, Premal G Uni versity of [facility] POCT GLUCOSE (AUTOMATED) 2020-12-12 19:14:00 Harrison, Premal G Uni versity of [facility] POCT GLUCOSE (AUTOMATED) 2020-12-12 14:33:00 Harrison, Premal G Uni versity of [facility] MAGNESIUM 2020-12-12 08:58:[address] [facility] BASIC METABOLIC PANEL 2020-12-12 08:58:00 Paul Bean [facility] (NA, K, CL, CO2, GLUCOSE, [facility] BUN, CREATININE, CA) CBC WITH DIFF 2020-12-12 08:58:[address] [facility] US ABDOMEN LIMITED 2020-12-12 06:32:26 Paul Bean [facility] POCT GLUCOSE (AUTOMATED) 2020-12-12 03:40:00 Harrison, Premal G Uni versity of [facility] POCT GLUCOSE (AUTOMATED) 2020-12-12 00:06:00 Harrison, Premal G Uni versity of [facility] XR HIPS 3 VW LEFT 2020-12-11 20:20:00 Paul Bean Sivakumar [facility] HB ECG ROUTINE & RHYTHM 2020-12-11 20:04:06 [facility] STRIP [facility] VITAMIN B6, PLASMA 2020-12-11 19:17:00 [facility] POCT GLUCOSE (AUTOMATED) 2020-12-11 19:06:00 Vika Harrison [facility] CREATINE KINASE 2020-12-11 18:22:00 Parvez [facility] VITAMIN B12, LEVEL 2020-12-11 18:22:00 Vikas [facility] FOLATE 2020-12-11 18:22:00 [facility] THYROID STIMULATING 2020-12-11 18:22:00 Demetrius [facility] HORMONE [facility] PROCALCITONIN 2020-12-11 18:22:00 Vikas [facility] VITAMIN B1 (THIAMINE), 2020-12-11 18:22:00 [facility]LO[facility] HEAD WO CONTRAST 2020-12-11 14:07:35 Sweetie Stout [facility] URINALYSIS 2020-12-11 13:44:00 Singer [facility] URINE CULTURE 2020-12-11 13:44:00 Singer [facility] COVID-19 (ID NOW RAPID 2020-12-11 12:31:00 Paco Lacey [facility] TESTING) Medical Branch LAB ONLY COVID 2020-12-11 12:31:00 Singer [facility] INTERPRETATION [facility] XR CHEST 1 VW 2020-12-11 12:07:24 Singer [facility] BLOOD CULTURE SCREEN 2020-12-11 12:02:00 Paco [facility] MAGNESIUM 2020-12-11 12:02:00 Vikas [facility] FERRITIN SERUM 2020-12-11 12:02:00 Paul Bean [facility] Kaley [facility] COMP. METABOLIC PANEL 2020-12-11 12:02:00 Singer [facility] ([id number]) [facility] CBC WITH DIFF 2020-12-11 12:02:00 Singer [facility] LACTIC ACID WHOLE BLOOD 2020-12-11 12:02:00 Singer Paco [facility] BLOOD CULTURE SCREEN 2020-12-11 11:42:00 Singer Paco [facility] EMERGENCY SERVICES 2020-12-11 06:01:00 Doctor Unassigned, [facility] AGREEMENTS AND [place] [facility] [place] AUTHORIZATIONS HOSPITAL ADMISSION 2020-12-11 06:01:00 Doctor Unaowen, [facility] Name Medical [place] HOME HEALTH - OTHER 2020-11-11 06:01:00 Doctor Tabitha [facility] Name Medical [place] HOME HEALTH - OTHER 2020-10-30 06:01:00 Doctor Unaowen [facility] Name Medical [place] EXTERNAL PROVIDER RECORDS 2020-09-01 06:01:00 Doctor Tabitha, [facility] Name [facility] POCT GLUCOSE (AUTOMATED) 2020-08-23 18:09:00 Kelly [facility] POCT GLUCOSE (AUTOMATED) 2020-08-23 14:14:00 Kelly [facility] MAGNESIUM 2020-08-23 11:18:00 Ramya [facility] BASIC METABOLIC PANEL 2020-08-23 11:18:00 Niobrara [facility] (NA, K, CL, CO2, GLUCOSE, Medica l Branch BUN, CREATININE, CA) CBC WITH DIFF 2020-08-23 11:18:00 Niobrara [facility] POCT GLUCOSE (AUTOMATED) 2020-08-23 10:21:00 Kelly Washington [facility] POCT GLUCOSE (AUTOMATED) 2020-08-23 05:55:00 Kelly Washington [facility] POCT GLUCOSE (AUTOMATED) 2020-08-23 03:00:00 Stefania [facility] ([facility]) 2020-08-22 23:38:00 Bety Washingtonmarie Elias versity [facility] POCT GLUCOSE (AUTOMATED) 2020-08-22 19:04:00 Bety Washingtonmarie [facility] PO[facility]UCOSE (AUTOMATED) 2020-08-22 13:49:00 Kelly Washington Jada versity [facility] MAGNESIUM 2020-08-22 10:10:00 [facility] 2020-08-22 10:10:00 Aguila [facility] ([id number]) (ALB,T.PRO,BILI Medical Branch T,BU/BC,ALT,AST,ALK PHOS) BASIC METABOLIC PANEL 2020-08-22 10:10:00 [facility] (NA, K, CL, CO2, GLUCOSE, Medica l Branch BUN, CREATININE, CA) LIPID PANEL ([id number])(TOTAL 2020-08-22 10:10:00 Niobrara, [facility] CHOLESTEROL, Medical [place] TRIGLYCERIDES, HDL) CBC WITH DIFF 2020-08-22 10:10:00 [facility] POCT GLUCOSE (AUTOMATED) 2020-08-22 10:10:00 Bety Washingtonmarie Elias [facility] POCT GLUCOSE (AUTOMATED) 2020-08-22 07:13:00 Kelly Washington Jada versity [facility] POCT GLUCOSE (AUTOMATED) 2020-08-22 02:24:00 Bety Washingtonmarie Elias versity [facility] POCT GLUCOSE (AUTOMATED) 2020-08-21 23:40:00 Kelly Washington Jada versity of [facility] POCT GLUCOSE (AUTOMATED) 2020-08-21 18:10:00 Kelly [place] Jada versity [facility] POCT GLUCOSE (AUTOMATED) 2020-08-21 13:39:00 Kelly Washington Jada versity [facility] ETHANOL 2020-08-21 12:35:00 [facility] PARTIAL 2020-08-21 12:35:00 Stefania [facility] GALV ONLY - SYPHILIS 2020-08-21 12:35:00 Stefania [facility] IGG/IGM [facility] LACTATE DEHYDROGENASE 2020-08-21 10:09:00 Ramya, [facility] GALV/CLC ONLY - URINE 2020-08-21 10:09:00 Richie [facility] DRUG (IMMUNOASSAY) - 4 ER Medica l Branch PANEL URINALYSIS 2020-08-21 10:09:00 Ramya, [facility] URINE CULTURE 2020-08-21 10:09:00 Ramya, [facility] PROCALCITONIN 2020-08-21 10:09:00 [place], [facility] POCT GLUCOSE (AUTOMATED) 2020-08-21 09:41:00 Stefania Kelly [facility] PROTHROMBIN TIME / INR 2020-08-21 08:32:00 [place], [facility] ACTIVATED PARTIAL 2020-08-21 08:32:00 [place], [facility] C-REACTIVE PROTEIN 2020-08-21 08:31:00 Ramya, [facility] HEPATIC FUNCTION PANEL 2020-08-21 08:31:00 Niobr[place], [facility] ([id number]) (ALB,T.PRO,BILI Medical Branch T,BU/BC,ALT,AST,ALK PHOS) BASIC METABOLIC PANEL 2020-08-21 08:31:00 Ni[place]rara, [facility] (NA, K, CL, CO2, GLUCOSE, [facility] BUN, CREATININE, CA) SEDIMENTATION RATE 2020-08-21 08:31:00 [place], [facility] CBC WITH DIFF 2020-08-21 08:31:00 [place], [facility] GLYCOSYLATED HEMOGLOBIN 2020-08-21 08:31:00 Ni[place]rara, [facility] (A1C) Medical Branch HIV 1/2 AG-AB WITH REFLEX 2020-08-21 08:31:00 Kelly [place] [facility] COVID-19 (ID NOW RAPID 2020-08-21 08:20:00 Haily Bui [facility] TESTING) Medical Branch LAB ONLY COVID 2020-08-21 08:20:00 [place]ara [facility] [place] INTERPRETATION [facility] Branch Encounters Start End Encounter Admission Attending Care Care Encounter Source Date/Time Date/Time Type Type Clinicians Facility Department ID 2020-08-21 Inpatient U [facility] [id number] Univers 01:07:00 KELLY brandenana [facility] 2021-08-22 2021-08-22 [id number] Univers 06:21:00 08:02:00 SWEETIE cantu [facility] 2021-08-22 2021-08-22 Emergency [facility] [id number] Univers 06:21:00 08:02:00 Sweetie LOTT 350.1.13.10 i ty of [place] [id number] [facility] 084 Branch 2021-08-09 2021-08-09 Outpatient JACQUELYN HAINES [facility] [id number] [facility] 10:27:03 10:27:03 ADRIANA lopez of Medicin e 2020-12-28 2020-12-28 Telephone [facility] [id number] 00:00:00 00:00:00 Calvin H PRIMARY [id number] CARE 4.2.7.2.686 PAVILLION [id number] 2020-12-28 2020-12-28 Telephone [facility] 1.2.840.114 [id number] Univers 00:00:00 00:00:00 Calvin H PRIMARY [id number] it y of [place] [id number] De dical 220 Branch 2020-12-19 2020-12-19 Transition Tuan Peters 1.2.840.114 [id number] 00:00:00 00:00:00 of Care Ruchi Braswell [id number] [place] 4.2.7.2.686 [id number] 2020-12-19 2020-12-19 Transition Tuan Peters 1.2.840.114 [id number] Univers 00:00:00 00:00:00 of Care Ruchi Braswell [id number] [place] [id number] [facility] 403 Branch 2020-12-11 2020-12-17 [facility] Paco Lacey 1.2.840.1 [id number] 05:11:00 16:00:00 Encounter Vika [place] [id number] [facility] 4.2.7.2.686 [id number] [facility] 2020-12-11 2020-12-17 [facility] Paco Lacey 1.2.840.1 [id number] [facility] 05:11:00 16:00:00 Encounter Vika Harrison [place] [id number] ity [facility] 4.2.7.[address] [place] [address] [id number] [facility] 096 Branch 2020-12-11 2020-12-17 Inpatient [facility] [id number] Univers 05:11:00 16:00:00 pepe [facility] 2020-11-16 2020-11-16 Emergency X [facility] ERT [id number] [facility] 09:31:00 09:31:00 PACO cantu [facility] 2020-11-11 2020-11-11 Orders Doctor CUI 1.2.840.114 [id number] 00:00:00 00:00:00 Only UnassignedMONIQUE 350.1.13.10 [place] [facility] 4.2.7.2.686 [id number] 2020-11-11 2020-11-11 Orders Doctor CUI 1.2.840.114 [id number] [facility] 00:00:00 00:00:00 Only Unassigned, MONIQUE 350.1.13.10 ity of [place] [facility] 4.2.7.2.686 Jeff as [id number] [address] 2020-11-07 2020-11-07 [facility]phone [facility] [id number] 00:00:00 00:00:00 Angi Lott 350.1.13.10 [place] 4.2.7.2.686 Professio [id number] [address] 2020-11-07 2020-11-07 Telephone [facility] [id number] [facility] 00:00:00 00:00:00 Angi Lott 350.1.13.10 ity of [place] Profess[place] [id number] De dic[address] 2020-10-30 2020-10-30 Orders Doctor BASILIA 1.2.840.114 [id number] 00:00:00 00:00:00 Only Unassigned, MONIQUE 350.1.13.10 [place] [facility] 4.2.7.2.686 [id number] [facility] 2020-10-30 2020-10-30 Orders Doctor BASILIA 1.2.840.114 [id number] [facility] 00:00:00 00:00:00 Only Unassigned, MONIQUE 350.1.13.10 ity of [place] [facility]OSP[facility] 4.2.7.2.686 Jeff as [id number] [address] 2020-09-26 2020-09-26 Telephone Eliot [facility] 1.2.840.114 [id number] 00:00:00 00:00:00 [facility] 350.1.13.10 CLINICS 4.2.7.2.686 [id number] [facility] 2020-09-26 2020-09-26 Telephone Eliot [facility] 1.2.840.114 [id number] [facility] 00:00:00 00:00:00 [facility] 350.1.13.10 i ty of CL[place]2.[place] [id number] [address] 2020-09-01 2020-09-01 Orders Doctor BASILIA 1.2.840.114 [id number] 00:00:00 00:00:00 Only Unassigned, MONIQUE 350.1.13.10 [place] [facility] 4.2.7.2.686 [id number] 2020-09-01 2020-09-01 Orders Doctor BASILIA 1.2.840.114 [id number] Univers 00:00:00 00:00:00 Only Unassigned, MONIQUE 350.1.13.10 ity of [place] [facility] 4.2.7.2.686 Jeff as [id number] [facility] 009 Branch 2020-08-25 2020-08-25 Transition Tuan Peters 1.2.840.114 [id number] 00:00:00 00:00:00 of Care Ruchi Braswell 350.1.13.10 [place] 4.2.7.2.686 [id number] 2020-08-25 2020-08-25 Transition Tuan Peters 1.2.840.114 [id number] Univers 00:00:00 00:00:00 of Care Ruchi Braswell 350.1.13.10 it y of [place] [id number] [facility] 403 [place] 2020-08-21 2020-08-23 [facility] Ayleen 1.2.840.114 [id number] 01:07:00 18:35:00 Encounter Kelly Monique 350.1.13.10 [facility] 4.2.7.2.686 [id number] [facility] 2020-08-21 2020-08-23 [facility] 1. 2.840.114 [id number] [facility] 01:07:00 18:35:00 Encounter Mukul Gallardo 350.1.13. 10 ity of [facility] 4.2.7.2.686 Jeff as [phone] [address] Results Test Description Test Time Test Comments Results Result Comments Source POCT GLUCOSE (AUTOMATED) 2020-12-17 15:43:35 Test Item Value Reference Range Interpretation Comme nts POCT GLU (test code = 2731095365) 129 mg/dL 70-110 H Lab Interpretation (test code = 19944-8) Abnormal [facility] (NA, K, CL, CO2, GLUCOSE, BUN, CREATININE, CA)2020-12-17 11:45:07 Test Item Value Reference Range Interpretation Comments NA (test code = 137 mmol/L 135-145 8590182619) K (test code = 3.5 mmol/L 3.5-5.0 4486782055) CL (test code = 103 mmol/L 98-108 4077063618) CO2 TOTAL (test code = 26 mmol/L 23-31 1750969863) AGAP (test code = 2-16 7765454217) BUN (test code = 11 mg/dL 7-23 4162480806) GLUCOSE (test code = 175 mg/dL 70-110 H 3562233228) CREATININE (test code = 0.62 mg/dL 0.60-1.25 7104901509) CALCIUM (test code = 9.0 mg/dL 8.6-10.6 0592476416) eGFR Calculation mL/min/1.73m2 (Non-) (test code = 9184899047) eGFR Calculation mL/min/1.73m2 () (test code = 6745146645) JAMES (test code = JAMES) Association of [...] tests). Lab Interpretation Abnormal (test code = 69527-0) [facility] WITH [id number] 11:07:27 Test Item Value Reference Range Interpretation [...] RDW-SD (test code = 45.2 fL 38.5-51.6 17019-7) RDW-CV (test code = 16.9 % 12.1-15.4 H 788-0) PLT (test code = See_Comment H [Automated 777-3) message] The sy stem which generated this result transmitted reference range : 150 - 328 10*3/ ?L. The reference r torito was not used to interpret this result as normal/abnormal . MPV (test code = 8.1 fL 9.8-13.0 L 64097-5) NRBC/100 WBC (test See_Comment [Automat ed code = 6081264415) message] The system which generated this result transmitted reference range : 0.0 - 10.0 /100 WBCs. The refer ence range was not u sed to interpret th is result as normal/abnormal . NRBC x10^3 (test code <0.01 See_Comment [Auto mated = 4963433377) message] The s ystem which generated this result transmitted reference range : 10*3/?L. The reference range was not used to interpret this result as normal/abnormal . GRAN MAT (NEUT) % 72.8 % (test code = 770-8) IMM GRAN % (test code 0.60 % = 6999160741) LYMPH % (test code = 18.4 % 736-9) MONO % (test code = 5.7 % 5905-5) EOS % (test code = 1.8 % 713-8) BASO % (test code = 0.7 % 706-2) GRAN MAT x10^3(ANC) 8.23 10*3/uL 1.99-6.95 H (test code = 6818645824) IMM GRAN x10^3 (test 0.07 10*3/uL 0.00-0.06 H code = 1551701410) LYMPH x10^3 (test code 2.08 10*3/uL 1.09-3.23 = 731-0) MONO x10^3 (test code 0.65 10*3/uL 0.36-1.02 = 742-7) EOS x10^3 (test code = 0.20 10*3/uL 0.06-0.53 711-2) BASO x10^3 (test code 0.08 10*3/uL 0.01-0.09 = 704-7) Lab Interpretation Abnormal (test code = 31928-5) [facility]2020-12-17 06:03:38 Test Item Value Reference Range Interpretation Comments POCT GLU (test code = 3956221932) 75 mg/dL 70-110 Lab Interpretation (test code = Normal 72372-4) [facility], [id number] 00:01:00 Test Item Value Reference Range Interpretation Comments VIT B6 (test code = 13.1 nmol/L 20.0-125.0 L INTERPRE TIVE 27597-8) INFORMATION: Vi tamin B6 (Pyridoxal 5-Phosphate) Pyridoxal 5'-phosphate me asured in a specimen collected follo wing an 8-hour or overnight fast accurately clara keene vitamin B6 nutritional sta tus. Non-fasting spe cimen concentration reflects recent vitamin intake. This test was develo ped and its perform ance characteristics determined by [facility]. I t has not been cleare d or approved by the [place] Food and Drug Administration. This test was perfor med in a CLIA certifie d laboratory and is intended for cl inical purposes.Perfor med By: [employer] [place] [address] [id number] Director: Namrata Klein MD Lab Interpretation Abnormal (test code = 45622-8) [facility] TIBIA FIBULA 2 VW [id number] 23:57:09 Tricompartmental knee joint osteoarthrosis.XR TIBIA FIBULA [...] No acute fracture or dislocation.IMPRESSIONTricompartmental knee joint osteoarthrosis.[facility] GLUCOSE (AUTOMATED) 2020-12-16 23:27:00 Test Item Value Reference Range Interpretation Comments POCT GLU (test code = 3310558904) 114 mg/dL 70-110 H Lab Interpretation (test code = Abnormal 68198-4) [facility] GLUCOSE (AUTOMATED)2020-12-16 20:12:00 Test Item Value Reference Range Interpretation Comments POCT GLU (test code = 5852305573) 105 mg/dL 70-110 Lab Interpretation (test code = Normal 96214-6) [facility] GLUCOSE (AUTOMATED)2020-12-16 14:44:00 Test Item Value Reference Range Interpretation Comments POCT GLU (test code = 0664398232) 153 mg/dL 70-110 H Lab Interpretation (test code = Abnormal 21747-0) [facility] METABOLIC PANEL (NA, K, CL, CO2, GLUCOSE, BUN, CREATININE, CA)2020-12-16 14:23:00 Test Item Value Reference Range Interpretation Comments NA (test code = 138 mmol/L 135-145 2472109696) K (test code = 3.4 mmol/L 3.5-5.0 L 3637160385) CL (test code = 100 mmol/L 98-108 7441501669) CO2 TOTAL (test code = 31 mmol/L 23-31 1934381992) AGAP (test code = 2-16 7151324888) BUN (test code = 11 mg/dL 7-23 5019566429) GLUCOSE (test code = 162 mg/dL 70-110 H 7065552094) CREATININE (test code = 0.64 mg/dL 0.60-1.25 4923664518) CALCIUM (test code = 8.9 mg/dL 8.6-10.6 1422485870) eGFR Calculation mL/min/1.73m2 (Non-) (test code = 0962091420) eGFR Calculation mL/min/1.73m2 () (test code = 3475528833) JAMES (test code = JAMES) Association of [...] tests). Lab Interpretation Abnormal (test code = 80714-6) [facility] WITH [id number] 14:05:00 Test Item Value Reference Range Interpretation [...] RDW-SD (test code = 45.4 fL 38.5-51.6 86496-2) RDW-CV (test code = 17.0 % 12.1-15.4 H 788-0) PLT (test code = See_Comment H [Automated 777-3) message] The sy stem which generated this result transmitted reference range : 150 - 328 10*3/ ?L. The reference r torito was not used to interpret this result as normal/abnormal . MPV (test code = 8.0 fL 9.8-13.0 L 04447-0) NRBC/100 WBC (test See_Comment [Automat ed code = 4640957620) message] The system which generated this result transmitted reference range : 0.0 - 10.0 /100 WBCs. The refer ence range was not u sed to interpret th is result as normal/abnormal . NRBC x10^3 (test code <0.01 See_Comment [Auto mated = 9415304358) message] The s ystem which generated this result transmitted reference range : 10*3/?L. The reference range was not used to interpret this result as normal/abnormal . GRAN MAT (NEUT) % 70.0 % (test code = 770-8) IMM GRAN % (test code 0.70 % = 2352813638) LYMPH % (test code = 20.5 % 736-9) MONO % (test code = 7.1 % 5905-5) EOS % (test code = 1.0 % 713-8) BASO % (test code = 0.7 % 706-2) GRAN MAT x10^3(ANC) 9.44 10*3/uL 1.99-6.95 H (test code = 4462102684) IMM GRAN x10^3 (test 0.09 10*3/uL 0.00-0.06 H code = 0149215491) LYMPH x10^3 (test code 2.76 10*3/uL 1.09-3.23 = 731-0) MONO x10^3 (test code 0.96 10*3/uL 0.36-1.02 = 742-7) EOS x10^3 (test code = 0.13 10*3/uL 0.06-0.53 711-2) BASO x10^3 (test code 0.10 10*3/uL 0.01-0.09 H = 704-7) Lab Interpretation Abnormal (test code = 94380-4) [facility] [id number] 13:01:00 Test Item Value Reference Range Interpretation Comments Blood Culture-Aerobic No organisms No growth Previo us (test code = 37838-8) isolated prelim inary verified result was Culture In Progress on 12/11/2020 at 100 1 CSTPrevious preliminary verified result was No growth a t 24 hours on 12/12/2020 at 070 1 CSTPrevious preliminary verified result was No growth a t 48 hours on 12/13/2020 at 070 1 CSTPrevious preliminary verified result was No growth a t 72 hours on 12/14/2020 at 070 1 [employer] Blood No organisms No growth Previous Culture-Anaerobic isolated preliminar y (test code = 26005-6) verifi ed result was Culture In Progress on 12/11/2020 at 100 1 CSTPrevious preliminary verified result was No growth a t 24 hours on 12/12/2020 at 070 1 CSTPrevious preliminary verified result was No growth a t 48 hours on 12/13/2020 at 070 1 CSTPrevious preliminary verified result was No growth a t 72 hours on 12/14/2020 at 070 1 [employer] Lab Interpretation Normal (test code = 89954-4) [facility] Culture - Peripheral # [id number] 13:01:00 Test Item Value Reference Range Interpretation Comments Blood Culture-Aerobic No organisms No growth Previo us (test code = 75811-5) isolated prelim inary verified result was Culture In Progress on 12/11/2020 at 100 1 CSTPrevious preliminary verified result was No growth a t 24 hours on 12/12/2020 at 070 1 CSTPrevious preliminary verified result was No growth a t 48 hours on 12/13/2020 at 070 1 CSTPrevious preliminary verified result was No growth a t 72 hours on 12/14/2020 at 070 1 [employer] Blood No organisms No growth Previous Culture-Anaerobic isolated preliminar y (test code = 62351-0) verifi ed result was Culture In Progress on 12/11/2020 at 100 1 CSTPrevious preliminary verified result was No growth a t 24 hours on 12/12/2020 at 070 1 CSTPrevious preliminary verified result was No growth a t 48 hours on 12/13/2020 at 070 1 CSTPrevious preliminary verified result was No growth a t 72 hours on 12/14/2020 at 070 1 [employer] Lab Interpretation Normal (test code = 37198-0) [facility] GLUCOSE (AUTOMATED)2020-12-16 04:01:00 Test Item Value Reference Range Interpretation Comments POCT GLU (test code = 3438825228) 156 mg/dL 70-110 H Lab Interpretation (test code = Abnormal 41691-9) [facility]2020-12-16 00:24:00 Test Item Value Reference Range Interpretation Comments POCT GLU (test code = 2089206673) 115 mg/dL 70-110 H Lab Interpretation (test code = Abnormal 11025-5) [facility] CHEST PULMONARY [id number] 23:34:55No pulmonary emboli. No interval change in [...] stableappearance of intra and extrahepatic biliary ductal dilatation.[facility] GLUCOSE (AUTOMATED)2020-12-15 19:28:00 Test Item Value Reference Range Interpretation Comments POCT GLU (test code = 2600955448) 140 mg/dL 70-110 H Lab Interpretation (test code = Abnormal 35408-8) [facility]2021-[facility] 15:26:00 Test Item Value Reference Range Interpretation Comments MAGNESIUM (test code = 9290460713) 2.2 mg/dL 1.7-2.4 Lab Interpretation (test code = Normal 52845-6) [facility] GLUCOSE (AUTOMATED)2020-12-15 15:15:00 Test Item Value Reference Range Interpretation Comments POCT GLU (test code = 7107678246) 181 mg/dL 70-110 H Lab Interpretation (test code = Abnormal 82499-0) [facility] METABOLIC PANEL (NA, K, CL, CO2, GLUCOSE, BUN, CREATININE, CA)2020-12-15 13:07:00 Test Item Value Reference Range Interpretation Comments NA (test code = 136 mmol/L 135-145 0273344120) K (test code = 3.6 mmol/L 3.5-5.0 3518882095) CL (test code = 96 mmol/L 98-108 L 6874079495) CO2 TOTAL (test code = 29 mmol/L 23-31 5946928687) AGAP (test code = 2-16 9090732532) BUN (test code = 12 mg/dL 7-23 9515265842) GLUCOSE (test code = 183 mg/dL 70-110 H 3828303224) CREATININE (test code = 0.70 mg/dL 0.60-1.25 6922126320) CALCIUM (test code = 9.2 mg/dL 8.6-10.6 4521160666) eGFR Calculation mL/min/1.73m2 (Non-) (test code = 3292479011) eGFR Calculation mL/min/1.73m2 () (test code = 3412187689) JAMES (test code = JAMES) Association of [...] tests). Lab Interpretation Abnormal (test code = 13894-7) [facility] WITH [id number] 12:32:00 Test Item Value Reference Range Interpretation Comments WBC (test code = See_Comment H [Automated 3290-2) message] The system which generated this result transmit ronan reference range : 4.20 - 10.70 10*3/?L. The reference range was not used to interpret this result as normal/abnormal . RBC (test code = See_Comment H [Automated 059-8) message] The system which generated this result [...] RDW-SD (test code = 44.4 fL 38.5-51.6 95215-5) RDW-CV (test code = 17.7 % 12.1-15.4 H 788-0) PLT (test code = See_Comment H [Automated 777-3) message] The system which generated this result transmit ronan reference range : 150 - 328 10*3/ ?L. The reference range was not u sed to interpret th is result as normal/abnormal . MPV (test code = 8.1 fL 9.8-13.0 L 75395-2) NRBC/100 WBC (test See_Comment [Automat ed code = 3582303069) message] The system which generated this result transmit ronan reference range : 0.0 - 10.0 /100 WBCs. The reference range was not used to interpret this result as normal/abnormal . NRBC x10^3 (test code <0.01 See_Comment [Auto mated = 2738932270) message] The system which generated this result transmit ronan reference range : 10*3/?L. The reference range was not used to interpret this result as normal/abnormal . GRAN MAT (NEUT) % 74.5 % (test code = 770-8) IMM GRAN % (test code 0.70 % = 3125530556) LYMPH % (test code = 17.4 % 736-9) MONO % (test code = 6.8 % 5905-5) EOS % (test code = 0.2 % 713-8) BASO % (test code = 0.4 % 706-2) GRAN MAT x10^3(ANC) 11.99 10*3/uL 1.99-6.95 H (test code = 5063293624) IMM GRAN x10^3 (test 0.11 10*3/uL 0.00-0.06 H code = 0963588434) LYMPH x10^3 (test code 2.80 10*3/uL 1.09-3.23 = 731-0) MONO x10^3 (test code 1.10 10*3/uL 0.36-1.02 H = 742-7) EOS x10^3 (test code = 0.03 10*3/uL 0.06-0.53 L 711-2) BASO x10^3 (test code 0.06 10*3/uL 0.01-0.09 = 704-7) Lab Interpretation Abnormal (test code = 54636-5) [facility] GLUCOSE (AUTOMATED)2020-12-15 04:16:00 Test Item Value Reference Range Interpretation Comments POCT GLU (test code = 8152705436) 200 mg/dL 70-110 H Lab Interpretation (test code = Abnormal 64855-5) [facility]IT[facility]1 (THIAMINE), WHOLE [id number] 00:30:00 Test Item Value Reference Range Interpretation Comments Vitamin B1, Whole 136 nmol/L 70-180 INTERPRETI VE INFORMATION: Blood (test code = Vitamin B 1, Whole Blood 13291-1) This assay júnior ures the concentration o f thiamine diphosphate (TD P), the primary active form of vitamin B1. Nick roximately 90 percent of v itamin B1 present in whol e blood is TDP. Thiamine a nd thiamine monoph osphate, which comprise the remaining 10 pe rcent, are not measured. T his test was developed a nd its performance characteristics determined by [facility]. I t has not been cleared or approved by the [place] Food and Drug Administration. This test was performed i n a CLIA certified labor atory and is intended for clinical purposes.Perfor med By: [facility] [address] [place], [place] [address]X aboratory Director: Namrata Klein MD [facility] GLUCOSE (AUTOMATED)2020-12-14 23:35:00 Test Item Value Reference Range Interpretation Comments POCT GLU (test code = 6380514299) 151 mg/dL 70-110 H Lab Interpretation (test code = Abnormal 01525-9) [facility] GLUCOSE (AUTOMATED)2020-12-14 19:19:00 Test Item Value Reference Range Interpretation Comments POCT GLU (test code = 1578523616) 193 mg/dL 70-110 H Lab Interpretation (test code = Abnormal 84198-3) [facility] GLUCOSE (AUTOMATED)2020-12-14 15:22:00 Test Item Value Reference Range Interpretation Comments POCT GLU (test code = 3732525342) 221 mg/dL 70-110 H Lab Interpretation (test code = Abnormal 06492-0) [facility] GLUCOSE (AUTOMATED)2020-12-14 02:37:00 Test Item Value Reference Range Interpretation Comments POCT GLU (test code = 4823721599) 210 mg/dL 70-110 H Lab Interpretation (test code = Abnormal 46759-1) [facility] GLUCOSE (AUTOMATED)2020-12-13 23:33:00 Test Item Value Reference Range Interpretation Comments POCT GLU (test code = 5594651091) 182 mg/dL 70-110 H Lab Interpretation (test code = Abnormal 65943-8) [facility] GLUCOSE (AUTOMATED)2020-12-13 18:09:00 Test Item Value Reference Range Interpretation Comments POCT GLU (test code = 8736048601) 150 mg/dL 70-110 H Lab Interpretation (test code = Abnormal 77774-2) [facility] METABOLIC PANEL (NA, K, CL, CO2, GLUCOSE, BUN, CREATININE, CA)2020-12-13 16:27:00 Test Item Value Reference Range Interpretation Comments NA (test code = 136 mmol/L 135-145 1760390749) K (test code = 3.7 mmol/L 3.5-5.0 7533537901) CL (test code = 96 mmol/L 98-108 L 5814203915) CO2 TOTAL (test code = 29 mmol/L 23-31 3252518598) AGAP (test code = 2-16 1589645774) BUN (test code = 6 mg/dL 7-23 L 0607945887) GLUCOSE (test code = 212 mg/dL 70-110 H 4577583904) CREATININE (test code = 0.61 mg/dL 0.60-1.25 8151178015) CALCIUM (test code = 9.5 mg/dL 8.6-10.6 9227869851) eGFR Calculation mL/min/1.73m2 (Non-) (test code = 4362492936) eGFR Calculation mL/min/1.73m2 () (test code = 4634480234) JAMES (test code = JAMES) Association of [...] tests). Lab Interpretation Abnormal (test code = 54918-9) [facility] WITH [id number] 16:10:00 Test Item Value Reference Range Interpretation Comments WBC (test code = See_Comment H [Automated 5590-2) message] The sy stem which generated this result transmitted reference range : 4.20 - 10.70 10*3/?L. The reference range was not used to interpret this result as normal/abnormal . RBC (test code = See_Comment H [Automated 259-8) message] The sy stem which [...] RDW-SD (test code = 43.3 fL 38.5-51.6 39645-8) RDW-CV (test code = 16.2 % 12.1-15.4 H 788-0) PLT (test code = See_Comment H [Automated 777-3) message] The sy stem which generated this result transmitted reference range : 150 - 328 10*3/ ?L. The reference r torito was not used to interpret this result as normal/abnormal . MPV (test code = 8.2 fL 9.8-13.0 L 83590-4) NRBC/100 WBC (test See_Comment [Automat ed code = 4058336185) message] The system which generated this result transmitted reference range : 0.0 - 10.0 /100 WBCs. The refer ence range was not u sed to interpret th is result as normal/abnormal . NRBC x10^3 (test code <0.01 See_Comment [Auto mated = 2725612725) message] The s ystem which generated this result transmitted reference range : 10*3/?L. The reference range was not used to interpret this result as normal/abnormal . GRAN MAT (NEUT) % 86.2 % (test code = 770-8) IMM GRAN % (test code 0.70 % = 2522392260) LYMPH % (test code = 10.2 % 736-9) MONO % (test code = 2.5 % 5905-5) EOS % (test code = 0.1 % 713-8) BASO % (test code = 0.3 % 706-2) GRAN MAT x10^3(ANC) 9.61 10*3/uL 1.99-6.95 H (test code = 5837164728) IMM GRAN x10^3 (test 0.08 10*3/uL 0.00-0.06 H code = 0123258832) LYMPH x10^3 (test code 1.14 10*3/uL 1.09-3.23 = 731-0) MONO x10^3 (test code 0.28 10*3/uL 0.36-1.02 L = 742-7) EOS x10^3 (test code = <0.03 0.06-0.53 L 711-2) BASO x10^3 (test code 0.03 10*3/uL 0.01-0.09 = 704-7) Lab Interpretation Abnormal (test code = 71661-0) [facility]2020-[facility]-13 14:16:00 Test Item Value Reference Range Interpretation Comments POCT GLU (test code = 9441861713) 236 mg/dL 70-110 H Lab Interpretation (test code = Abnormal 97313-1) [facility] COVID [id number] 04:58:00COVID DMT InterpretationInterpretation/Recommendations: Molecular NAAT Tests for [...] [facility] SERVICESCOVID VirighfNVEJ-QtH-3 Rapid ID NOW (no units) ? ? Date ? Value ? 12/11/2020 ? Not Detected ? ? ? 11/16/2020 ? Not Detected ? ? ? 08/21/2020 ? Not Detected ? [facility]Un[facility] 2020-12-13 03:11:00 Test Item Value Reference Range Interpretation Comments POCT GLU (test code = 3226857910) 171 mg/dL 70-110 H Lab Interpretation (test code = Abnormal 29792-2) [facility] GLUCOSE (AUTOMATED)2020-12-13 00:00:00 Test Item Value Reference Range Interpretation Comments POCT GLU (test code = 4576706539) 118 mg/dL 70-110 H Lab Interpretation (test code = Abnormal 65169-4) [facility] GLUCOSE (AUTOMATED)2020-12-12 20:29:00 Test Item Value Reference Range Interpretation Comments POCT GLU (test code = 7376316519) 173 mg/dL 70-110 H Lab Interpretation (test code = Abnormal 39826-2) [facility] ABDOMEN [id number] 19:56:17 1. ?Hepatic steatosis. However, limited evaluation [...] main portal veinwasevaluated with color Doppler imaging. [place] Feller images were obtainedfor the record. COMPARISON: Ultrasound [...] portal vein wasevaluated with color Doppler imaging. [place] Feller images wereobtainedfor the record.COMPARISON: Ultrasound abdomen 11/17/2028. [...] study and agree with the abovereport.[facility]2020-12-12 19:24:00 Test Item Value Reference Range Interpretation Comments POCT GLU (test code = 3546507012) 230 mg/dL 70-110 H Lab Interpretation (test code = Abnormal 83445-8) [facility] CHEST 1 [id number] 15:16:46 Low lung volumes with mild perihilar [...] reviewed this study and agree with theabove report.[facility]2020-12-12 14:34:00 Test Item Value Reference Range Interpretation Comments POCT GLU (test code = 1919180117) 225 mg/dL 70-110 H Lab Interpretation (test code = Abnormal 59097-6) [facility] BrookURINE [id number] 13:28:00 Test Item Value Reference Range Interpretation Comments URINE CULTURE (test < 10,000 CFU/mL mixed code = 630-4) aerobic organisms - suggests endogenous microbial contamination [facility] (NA, K, CL, CO2, GLUCOSE, BUN, CREATININE, CA)2020-12-12 10:05:00 Test Item Value Reference Range Interpretation Comments NA (test code = 136 mmol/L 135-145 9807197862) K (test code = 3.5 mmol/L 3.5-5.0 8033404240) CL (test code = 100 mmol/L 98-108 9981384592) CO2 TOTAL (test code = 31 mmol/L 23-31 7910818572) AGAP (test code = 2-16 3254130286) BUN (test code = 7 mg/dL 7-23 5262752118) GLUCOSE (test code = 259 mg/dL 70-110 H 8903480746) CREATININE (test code = 0.63 mg/dL 0.60-1.25 2593024981) CALCIUM (test code = 8.5 mg/dL 8.6-10.6 L 9204818473) eGFR Calculation mL/min/1.73m2 (Non-) (test code = 3924849420) eGFR Calculation mL/min/1.73m2 () (test code = 5504450104) JAMES (test code = JAMES) Association of [...] tests). Lab Interpretation Abnormal (test code = 27823-7) [facility] BrookMagnesium [id number] 10:05:00 Test Item Value Reference Range Interpretation Comments MAGNESIUM (test code = 0886592064) 1.9 mg/dL 1.7-2.4 Lab Interpretation (test code = Normal 16763-6) [facility] with [id number] 09:48:00 Test Item Value Reference Range Interpretation Comments WBC (test code = See_Comment [Automated 9011-2) message] The sy stem which generated this result transmitted reference range : 4.20 - 10.70 10*3/?L. The reference range was not used to interpret this result as normal/abnormal . RBC (test code = See_Comment [Automated 895-0) message] The sy stem which generated this [...] RDW-SD (test code = 46.0 fL 38.5-51.6 69328-8) RDW-CV (test code = 16.1 % 12.1-15.4 H 788-0) PLT (test code = See_Comment H [Automated 777-3) message] The sy stem which generated this result transmitted reference range : 150 - 328 10*3/ ?L. The reference r torito was not used to interpret this result as normal/abnormal . MPV (test code = 8.6 fL 9.8-13.0 L 91223-5) NRBC/100 WBC (test See_Comment [Automat ed code = 2352775289) message] The system which generated this result transmitted reference range : 0.0 - 10.0 /100 WBCs. The refer ence range was not u sed to interpret th is result as normal/abnormal . NRBC x10^3 (test code <0.01 See_Comment [Auto mated = 8662595701) message] The s ystem which generated this result transmitted reference range : 10*3/?L. The reference range was not used to interpret this result as normal/abnormal . GRAN MAT (NEUT) % 70.2 % (test code = 770-8) IMM GRAN % (test code 0.30 % = 0987489777) LYMPH % (test code = 18.8 % 736-9) MONO % (test code = 5.0 % 5905-5) EOS % (test code = 5.2 % 713-8) BASO % (test code = 0.5 % 706-2) GRAN MAT x10^3(ANC) 6.05 10*3/uL 1.99-6.95 (test code = 0516680833) IMM GRAN x10^3 (test 0.03 10*3/uL 0.00-0.06 code = 1401598166) LYMPH x10^3 (test code 1.62 10*3/uL 1.09-3.23 = 731-0) MONO x10^3 (test code 0.43 10*3/uL 0.36-1.02 = 742-7) EOS x10^3 (test code = 0.45 10*3/uL 0.06-0.53 711-2) BASO x10^3 (test code 0.04 10*3/uL 0.01-0.09 = 704-7) Lab Interpretation Abnormal (test code = 66194-6) [facility]2020-12-12 03:42:00 Test Item Value Reference Range Interpretation Comments POCT GLU (test code = 196 mg/dL 70-110 H Notifi ed Provider 0862708655) Lab Interpretation (test Abnormal code = 73958-5) [facility] BrookFOLATE2021-03-02 02:24:00 Test Item Value Reference Range Interpretation Comments FOLATE SER (test code = 4166101950) 5.8 ng/mL 3.0-20.0 Lab Interpretation (test code = Normal 22069-8) [facility] BrookVITAMIN B12, [id number] 00:55:00 Test Item Value Reference Range Interpretation Comments VIT B12 (test code = 844 pg/mL 240-930 7773229838) JAMES (test code = JAMES) Biotin has been reported to cause a positive bias, interpret results relative to patient's use of biotin. Lab Interpretation (test Normal code = 23562-3) [facility] GLUCOSE (AUTOMATED)2020-12-12 00:14:00 Test Item Value Reference Range Interpretation Comments POCT GLU (test code = 5611796567) 164 mg/dL 70-110 H Lab Interpretation (test code = Abnormal 15904-0) [facility] BrookCREATINE [id number] 23:42:00 Test Item Value Reference Range Interpretation Comments CK (test code = 2044967975) <20 33-194 L Lab Interpretation (test code = Abnormal 46938-8) [facility] BrookTHYROID STIMULATING [id number] 23:17:00 Test Item Value Reference Range Interpretation Comments TSH (test code = See_Comment Biotin has been 9484318240) reported to cau se a negative bias, interpret resul ts relative to johnny bills's use of biotin. [Automated mess age] The system Joust generated this result transmitted ref erence range: 0.45 - 4 .70 mIU/L. The refe rence range was not u sed to interpret this result as normal/abnor mal. Lab Interpretation (test Normal code = 77620-1) [facility] BrookXR HIPS 3 VW [id number] 21:41:53No appreciable fracture lines. RL: 6200 ICAL [...] (test 0.13 ng/mL <0.07 H code = 0791546748) JAMES (test code = JAMES) INTERPRETATION OF [...] biotics/default.asp Lab Interpretation Abnormal (test code = 17157-2) [facility]2020-12-11 19:07:00 Test Item Value Reference Range Interpretation Comments POCT GLU (test code = 5848126801) 274 mg/dL 70-110 H Lab Interpretation (test code = Abnormal 28918-4) [facility] BrookMAGNESIUM2021-03-01 18:31:00 Test Item Value Reference Range Interpretation Comments MAGNESIUM (test code = 9876760701) 1.9 mg/dL 1.7-2.4 Lab Interpretation (test code = Normal 38227-4) [facility] BrookFERRITIN [id number] 18:31:00 Test Item Value Reference Range Interpretation Comments FERRITIN (test code = 178.0 ng/mL 18.0-464.0 8877893875) JAMES (test code = JAMES) Biotin has been reported to cause a negative bias, interpret results relative to patient's use of biotin. Lab Interpretation (test Normal code = 97419-9) [facility] HEAD WO [id number] 14:36:47 No acute intracranial abnormality. Dilated ventricles [...] Comments APPEARANCE (test code = Clear Clear 3815435493) COLOR (test code = Yellow Yellow 0215094902) PH (test code = 4.8-8.0 9758211680) SP GRAVITY (test code = 1.003-1.030 3021289794) GLU U QUAL (test code = 500 mg/dL Normal A 7938801021) BLOOD (test code = Negative Negative 8264183809) KETONES (test code = 5 mg/dL Negative A 9783039147) PROTEIN (test code = Negative Negative 2887-8) UROBILIN (test code = Normal Normal 8485903670) BILIRUBIN (test code = Negative Negative 4459265751) NITRITE (test code = Negative Negative 6495071606) LEUK RYAN (test code = Negative Negative 3476086000) RBC/HPF (test code = See_Comment [Autom ated message] 0662631078) The system Joust generated this result transmit ronan reference range : 0 - 3 HPF. The refe rence range was not u sed to interpret th is result as normal/abnormal . WBC/HPF (test code = See_Comment [Autom ated message] 6093315163) The system Joust generated this result transmit ronan reference range : 0 - 5 HPF. The refe rence range was not u sed to interpret th is result as normal/abnormal . BACTERIA (test code = Negative Negative 8645106143) MUCOUS (test code = Slight Negative LPF A 1124858722) SQ EPITH (test code = HPF 4328041255) Lab Interpretation (test Abnormal code = 51819-7) [facility] (ID NOW RAPID TESTING)2020-12-11 13:10:00 Test Item Value Reference Range Interpretation Comments SARS-CoV-2 Rapid ID NOW Not Detected Not Detected (test code = 65950-1) JAMES (test code = JAMES) ID NOW COVID-19 Assay is an isothermal nucleic acid amplification test intended for the qualitative detection of nucleic acid from SARS-CoV-2 viral RNA in nasopharyngeal ([employer]) specimens. It is used under Emergency [...] indicated. Lab Interpretation Normal (test code = 91530-6) [facility]. METABOLIC PANEL (58815)2020-12-11 12:29:00 Test Item Value Reference Range Interpretation Comments NA (test code = 136 mmol/L 135-145 8946659891) K (test code = 3.5 mmol/L 3.5-5.0 3895526116) CL (test code = 95 mmol/L 98-108 L 2690154116) CO2 TOTAL (test code = 35 mmol/L 23-31 H 6263125628) AGAP (test code = 2-16 5977010675) BUN (test code = 9 mg/dL 7-23 5141416092) GLUCOSE (test code = 329 mg/dL 70-110 H 0722064123) CREATININE (test code = 0.72 mg/dL 0.60-1.25 3124425030) TOTAL BILI (test code = 0.6 mg/dL 0.1-1.9 4994537723) CALCIUM (test code = 9.0 mg/dL 8.6-10.6 7641626365) T PROTEIN (test code = 6.8 g/dL 6.3-8.2 1417427023) ALBUMIN (test code = 3.8 g/dL 3.5-5.0 3523938820) ALK PHOS (test code = 288 U/L 34-122 H 7197115244) ALTv (test code = 46 U/L 5-50 1742-6) AST(SGOT) (test code = 38 U/L 13-40 7183191633) eGFR Calculation mL/min/1.73m2 (Non-) (test code = 9495986041) eGFR Calculation mL/min/1.73m2 () (test code = 5307694061) JAMES (test code = JAMES) Association of [...] tests). Lab Interpretation Abnormal (test code = 02170-3) [facility] BrookLactic Acid Whole [id number] 12:23:00 Test Item Value Reference Range Interpretation Comments LACTIC ACID (test code = 2.09 mmol/L 0.50-2.20 8013048792) Lab Interpretation (test code = Normal 57186-4) [facility] WITH [id number] 12:17:00 Test Item Value Reference Range Interpretation Comments WBC (test code = See_Comment H [Automated 1290-2) message] The sy stem which generated this result transmitted reference range : 4.20 - 10.70 10*3/?L. The reference range was not used to interpret this result as normal/abnormal . RBC (test code = See_Comment [Automated 999-8) message] The sy stem which [...] RDW-SD (test code = 44.9 fL 38.5-51.6 80354-3) RDW-CV (test code = 15.9 % 12.1-15.4 H 788-0) PLT (test code = See_Comment H [Automated 777-3) message] The sy stem which generated this result transmitted reference range : 150 - 328 10*3/ ?L. The reference r torito was not used to interpret this result as normal/abnormal . MPV (test code = 8.3 fL 9.8-13.0 L 01939-7) NRBC/100 WBC (test See_Comment [Automat ed code = 2747135609) message] The system which generated this result transmitted reference range : 0.0 - 10.0 /100 WBCs. The refer ence range was not u sed to interpret th is result as normal/abnormal . NRBC x10^3 (test code <0.01 See_Comment [Auto mated = 0719671976) message] The s ystem which generated this result transmitted reference range : 10*3/?L. The reference range was not used to interpret this result as normal/abnormal . GRAN MAT (NEUT) % 77.9 % (test code = 770-8) IMM GRAN % (test code 0.50 % = 2223558347) LYMPH % (test code = 12.2 % 736-9) MONO % (test code = 5.2 % 5905-5) EOS % (test code = 3.7 % 713-8) BASO % (test code = 0.5 % 706-2) GRAN MAT x10^3(ANC) 9.57 10*3/uL 1.99-6.95 H (test code = 4731952118) IMM GRAN x10^3 (test 0.06 10*3/uL 0.00-0.06 code = 7963651585) LYMPH x10^3 (test code 1.50 10*3/uL 1.09-3.23 = 731-0) MONO x10^3 (test code 0.64 10*3/uL 0.36-1.02 = 742-7) EOS x10^3 (test code = 0.46 10*3/uL 0.06-0.53 711-2) BASO x10^3 (test code 0.06 10*3/uL 0.01-0.09 = 704-7) Lab Interpretation Abnormal (test code = 43459-6) [facility] COVID [id number] 18:43:00COVID DMT InterpretationInterpretation/Recommendations: Molecular NAAT Test Results [...] a nasopharyngeal sample, there is approximately a rdq-mg-spttr chance that the patient was infected and [...] based upon aggregate data pooled from the [facility] medical recordincluding both current and prior COVID-19 related testing results for the following tests offered atour institution:A. Tests for the Identification of SARS-CoV-2 RNA:SARS-CoV-2 PCR assays including Wade Aptima, Wade Fusion, Barrett RealTime, and Ooolala Xpert Xpress. SARS-CoV-2 Rapid ID NOW by the ID NOW assay. ? B. Tests for the Identification of SARS-CoV-2 Antibodies: Chemiluminescent immunoassays including Access SARS-CoV-2 IgM (DXI 600), VITROS Otee-QCOO-PbB-2 IgG (Vitros 5600 and Vitros 3600), and Barrett SARS-CoV-2 IgG (DIPPER FISH I System). These interpretation comments assume that only the above testing was utilized and that the approved acceptable specimen type(s) were used for a given test. These interpretations are autopopulated into [employer] based on computerized algorithms matching an interpretation [...] [facility] SERVICESCOVID DracrjwKGLF-UpA-4 Rapid ID NOW (no units) ? ? Date ? Value ? 08/21/2020 ? Not Detected ? [facility]2020-08-23 18:25:00 Test Item Value Reference Range Interpretation Comments POCT GLU (test code = 9211459392) 297 mg/dL 70-110 H Lab Interpretation (test code = Abnormal 84741-8) [facility] GLUCOSE (AUTOMATED)2020-08-23 14:25:00 Test Item Value Reference Range Interpretation Comments POCT GLU (test code = 8674431254) 181 mg/dL 70-110 H Lab Interpretation (test code = Abnormal 33966-6) [facility] Metabolic Panel (NA, K, CL, CO2, GLUCOSE, BUN, CREATININE, CA)2020-08-23 11:45:00 Test Item Value Reference Range Interpretation Comments NA (test code = 132 mmol/L 135-145 L 6269741797) K (test code = 4.0 mmol/L 3.5-5 5752447886) CL (test code = 96 mmol/L 98-108 L 8899511729) CO2 TOTAL (test code = 33 mmol/L 23-31 H 3090794889) AGAP (test code = 2-16 3500982426) BUN (test code = 9 mg/dL 7-23 9223862687) GLUCOSE (test code = 176 mg/dL 70-110 H 7959647743) CREATININE (test code = 0.66 mg/dL 0.6-1.25 1994095112) CALCIUM (test code = 8.5 mg/dL 8.6-10.6 L 0420516529) eGFR Calculation mL/min/1.73m2 (Non-) (test code = 1820390729) eGFR Calculation mL/min/1.73m2 () (test code = 1681617918) JAMES (test code = JAMES) Association of [...] tests). Lab Interpretation Abnormal (test code = 43169-1) [facility] BrookMagnesium Xgwve9040-08-00 11:45:00 Test Item Value Reference Range Interpretation Comments MAGNESIUM (test code = 9421478066) 2.0 mg/dL 1.7-2.4 Lab Interpretation (test code = Normal 95505-8) [facility] with Carhrjqgryxg5119-40-10 11:38:00 Test Item Value Reference Range Interpretation [...] RDW-SD (test code = 41.8 fL 38.5-51.6 11524-5) RDW-CV (test code = 14.3 % 12.1-15.4 788-0) PLT (test code = See_Comment H [Automated 777-3) message] The sy stem which generated this result transmitted reference range : 150 - 328 10*3/ ?L. The reference r torito was not used to interpret this result as normal/abnormal . MPV (test code = 8.0 fL 9.8-13 L 08098-8) NRBC/100 WBC (test See_Comment [Automat ed code = 1011560444) message] The system which generated this result transmitted reference range : 0.0 - 10.0 /100 WBCs. The refer ence range was not u sed to interpret th is result as normal/abnormal . NRBC x10^3 (test code <0.01 See_Comment [Auto mated = 8631766578) message] The s ystem which generated this result transmitted reference range : 10*3/?L. The reference range was not used to interpret this result as normal/abnormal . GRAN MAT (NEUT) % 61.5 % (test code = 770-8) IMM GRAN % (test code 2.00 % = 8131558910) LYMPH % (test code = 25.5 % 736-9) MONO % (test code = 6.3 % 5905-5) EOS % (test code = 3.7 % 713-8) BASO % (test code = 1.0 % 706-2) GRAN MAT x10^3(ANC) 5.29 10*3/uL 1.99-6.95 (test code = 6189503473) IMM GRAN x10^3 (test 0.17 10*3/uL 0-0.06 H code = 3738330575) LYMPH x10^3 (test code 2.19 10*3/uL 1.09-3.23 = 731-0) MONO x10^3 (test code 0.54 10*3/uL 0.36-1.02 = 742-7) EOS x10^3 (test code = 0.32 10*3/uL 0.06-0.53 711-2) BASO x10^3 (test code 0.09 10*3/uL 0.01-0.09 = 704-7) Lab Interpretation Abnormal (test code = 91289-0) [facility] GLUCOSE (AUTOMATED)2020-08-23 10:22:00 Test Item Value Reference Range Interpretation Comments POCT GLU (test code = 3213106135) 164 mg/dL 70-110 H Lab Interpretation (test code = Abnormal 03812-5) [facility] GLUCOSE (AUTOMATED)2020-08-23 05:56:00 Test Item Value Reference Range Interpretation Comments POCT GLU (test code = 1332540785) 242 mg/dL 70-110 H Lab Interpretation (test code = Abnormal 56934-6) [facility] GLUCOSE (AUTOMATED)2020-08-23 03:02:00 Test Item Value Reference Range Interpretation Comments POCT GLU (test code = 7527148251) 210 mg/dL 70-110 H Lab Interpretation (test code = Abnormal 03391-3) [facility] GLUCOSE (AUTOMATED)2020-08-22 23:40:00 Test Item Value Reference Range Interpretation Comments POCT GLU (test code = 3597793046) 267 mg/dL 70-110 H Lab Interpretation (test code = Abnormal 98858-8) [facility] GLUCOSE (AUTOMATED)2020-08-22 19:08:00 Test Item Value Reference Range Interpretation Comments POCT GLU (test code = 2886127035) 191 mg/dL 70-110 H Lab Interpretation (test code = Abnormal 47764-5) [facility] GLUCOSE (AUTOMATED)2020-08-22 13:50:00 Test Item Value Reference Range Interpretation Comments POCT GLU (test code = 9640829988) 174 mg/dL 70-110 H Lab Interpretation (test code = Abnormal 19764-0) [facility] [id number] 12:59:00 Test Item Value Reference Range Interpretation Comments URINE CULTURE (test No aerobic growth (< code = 630-4) 1000 CFU/mL) [facility] with Mbkoywbocbfj0130-65-90 11:28:00 Test Item Value Reference Range Interpretation Comments WBC (test code = See_Comment [Automated 6690-2) message] The sy stem which generated this result transmitted reference range : 4.20 - 10.70 10*3/?L. The reference range was not used to interpret this result as normal/abnormal . RBC (test code = See_Comment L [Automated 039-8) message] The sy stem which generated this [...] RDW-SD (test code = 42.5 fL 38.5-51.6 16924-4) RDW-CV (test code = 14.5 % 12.1-15.4 788-0) PLT (test code = See_Comment H [Automated 777-3) message] The sy stem which generated this result transmitted reference range : 150 - 328 10*3/ ?L. The reference r torito was not used to interpret this result as normal/abnormal . MPV (test code = 8.0 fL 9.8-13 L 06130-3) NRBC/100 WBC (test See_Comment [Automat ed code = 6142621799) message] The system which generated this result transmitted reference range : 0.0 - 10.0 /100 WBCs. The refer ence range was not u sed to interpret th is result as normal/abnormal . NRBC x10^3 (test code <0.01 See_Comment [Auto mated = 2819697054) message] The s ystem which generated this result transmitted reference range : 10*3/?L. The reference range was not used to interpret this result as normal/abnormal . GRAN MAT (NEUT) % 69.1 % (test code = 770-8) IMM GRAN % (test code 2.20 % = 0331813208) LYMPH % (test code = 20.9 % 736-9) MONO % (test code = 5.8 % 5905-5) EOS % (test code = 1.0 % 713-8) BASO % (test code = 1.0 % 706-2) GRAN MAT x10^3(ANC) 6.51 10*3/uL 1.99-6.95 (test code = 4828383446) IMM GRAN x10^3 (test 0.21 10*3/uL 0-0.06 H code = 6943458753) LYMPH x10^3 (test code 1.97 10*3/uL 1.09-3.23 = 731-0) MONO x10^3 (test code 0.55 10*3/uL 0.36-1.02 = 742-7) EOS x10^3 (test code = 0.09 10*3/uL 0.06-0.53 711-2) BASO x10^3 (test code 0.09 10*3/uL 0.01-0.09 = 704-7) BASO STIPPLING (test Present A code = 703-9) BANDS (test code = Increased A 2297876799) TOXIC CHANGES (test Present A code = 803-7) Lab Interpretation Abnormal (test code = 35773-1) [facility] Metabolic Panel (NA, K, CL, CO2, GLUCOSE, BUN, CREATININE, CA)2020-08-22 11:12:00 Test Item Value Reference Range Interpretation Comments NA (test code = 135 mmol/L 135-145 6396163870) K (test code = 3.6 mmol/L 3.5-5 6115498263) CL (test code = 99 mmol/L 98-108 6756901174) CO2 TOTAL (test code = 31 mmol/L 23-31 1195812249) AGAP (test code = 2-16 2499394248) BUN (test code = 9 mg/dL 7-23 2718657429) GLUCOSE (test code = 198 mg/dL 70-110 H 2490931016) CREATININE (test code = 0.72 mg/dL 0.6-1.25 0319503010) CALCIUM (test code = 8.3 mg/dL 8.6-10.6 L 6881869782) eGFR Calculation mL/min/1.73m2 (Non-) (test code = 6960509275) eGFR Calculation mL/min/1.73m2 () (test code = 3091668024) JAMES (test code = JAMES) Association of [...] tests). Lab Interpretation Abnormal (test code = 16079-5) [facility] BrookMagnesium Sxvqt3042-73-49 11:12:00 Test Item Value Reference Range Interpretation Comments MAGNESIUM (test code = 8626242329) 2.0 mg/dL 1.7-2.4 Lab Interpretation (test code = Normal 31712-0) [facility] Brook[facility]id Panel (Total Cholesterol, Triglycerides, HDL) - [id number] 11:12:00 Test Item Value Reference Range Interpretation Comments CHOL (test code = 155 mg/dL 120-200 8717496266) HDL (test code = 42 mg/dL >40 1767539295) HDLC RATIO (test code = See_Comment [Au tomated message] 1682526057) The system Joust generated this result transmit ronan reference range : <=5.0. The refe rence range was not u sed to interpret th is result as normal/abnormal . TRIG (test code = 186 mg/dL 30-170 H 5512672393) LDL CHOL (test code = 76 mg/dL See_Comment [Auto mated message] 43429-3) The system Joust generated this result transmit ronan reference range : <=160. The refe rence range was not u sed to interpret th is result as normal/abnormal . VLDL (test code = 37 mg/dL 5-60 0329586856) Lab Interpretation (test Abnormal code = 45971-2) [facility]AT[facility] FUNCTION PANEL (36464) (ALB,T.PRO,BILI T,BU/BC,ALT,AST,ALK PHOS)2020-08-22 11:12:00 Test Item Value Reference Range Interpretation Comments TOTAL BILI (test code = 4898280079) 0.6 mg/dL 0.1-1.1 BILI UNCON (test code = 5982128680) 0.2 mg/dL 0.1-1.1 BILI CONJ (test code = 3493801290) 0.0 mg/dL 0-0.3 T PROTEIN (test code = 5599075155) 6.0 g/dL 6.3-8.2 L ALBUMIN (test code = 5945967209) 2.8 g/dL 3.5-5 L ALK PHOS (test code = 6979369343) 222 U/L 34-122 H ALTv (test code = 1742-6) 27 U/L 5-50 AST(SGOT) (test code = 2975467896) 30 U/L 13-40 Lab Interpretation (test code = Abnormal 55681-1) [facility] GLUCOSE (AUTOMATED)2020-08-22 10:11:00 Test Item Value Reference Range Interpretation Comments POCT GLU (test code = 6681378977) 196 mg/dL 70-110 H Lab Interpretation (test code = Abnormal 31975-1) [facility] GLUCOSE (AUTOMATED)2020-08-22 07:15:00 Test Item Value Reference Range Interpretation Comments POCT GLU (test code = 7552384388) 183 mg/dL 70-110 H Lab Interpretation (test code = Abnormal 35197-9) [facility] GLUCOSE (AUTOMATED)2020-08-22 02:30:00 Test Item Value Reference Range Interpretation Comments POCT GLU (test code = 0066180661) 295 mg/dL 70-110 H Lab Interpretation (test code = Abnormal 56997-1) [facility] GLUCOSE (AUTOMATED)2020-08-21 23:46:00 Test Item Value Reference Range Interpretation Comments POCT GLU (test code = 7067450346) 258 mg/dL 70-110 H Lab Interpretation (test code = Abnormal 43915-3) [facility] BrookC-REACTIVE [id number] 18:50:00 Test Item Value Reference Range Interpretation Comments CRP (test code = 4544129648) 15.5 mg/dL <0.8 H Lab Interpretation (test code = Abnormal 69004-8) [facility]2020-08-21 18:21:00 Test Item Value Reference Range Interpretation Comments POCT GLU (test code = 9350272627) 297 mg/dL 70-110 H Lab Interpretation (test code = Abnormal 45095-3) [facility] BrookETHANOL2020-11-09 16:24:00 Test Item Value Reference Range Interpretation Comments ALCOHOL (test code = <10 mg/dL 1379973508) JAMES (test code = Toxic Greater than or JAMES) equal to 80 mg/dL. NOTE: Whole blood values are approximately 10% to 15% lower than serum and plasma. [facility]CLC ONLY - URINE DRUG (IMMUNOASSAY) - 4 ER [id number] 15:36:00 Test Item Value Reference Range Interpretation Comments AMPHET (test code = Negative Negative 5136182803) Cocaine Metabolite (test Negative Negative code = 3832531439) OPIATES (test code = Presumptive Positive Negative A 8042137038) THC (test code = Negative Negative 3463298494) JAMES (test code = JAMES) Urine Drug Cutoff Ranges Amphetamine: ? 1,000 ng/mLCocaine: ? 150 ng/mLOpiates: ? 300 ng/mLCannabinoids: ?50 ng/mL The results are to be used only for medical (i.e., treatment) purposes. Unconfirmed screening results must not be used for non-medical purposes (e.g., employment testing, legal testing). Lab Interpretation (test Abnormal code = 90263-9) [facility] ONLY - SYPHILIS IGG/[id number] 15:04:00 Test Item Value Reference Range Interpretation Comments Syphilis IgG/IgM (test Non-reactive Non-reactive code = 04268-2) JAMES (test code = JAMES) Non-reactive - No serologic evidence of T. pallidum infection. Cannot exclude incubating or early syphilis. Submit a second specimen in 2-4 weeks if syphilis is clinically suspected. Equivocal - Further testing to follow. Reactive - Further testing to follow. Lab Interpretation (test Normal code = 66264-5) [facility] BrookUrinalysis2020-11-09 14:52:00 Test Item Value Reference Range Interpretation Comments APPEARANCE (test code = Clear Clear 8164177714) COLOR (test code = Yellow Yellow 0385299399) PH (test code = 4.8-8.0 6508270016) SP GRAVITY (test code = 1.003-1.030 8627179302) GLU U QUAL (test code = 500 mg/dL Normal A 0131239027) BLOOD (test code = Negative Negative 7821089949) KETONES (test code = 20 mg/dL Negative A 3789910561) PROTEIN (test code = Negative Negative 2887-8) UROBILIN (test code = Normal Normal 6091383742) BILIRUBIN (test code = Negative Negative 3520124650) NITRITE (test code = Negative Negative 4179801001) LEUK RYAN (test code = Negative Negative 4066377025) RBC/HPF (test code = <1 See_Comment [Autom ated message] 6736516636) The system Joust generated this result transmit ronan reference range : 0 - 3 HPF. The refe rence range was not u sed to interpret th is result as normal/abnormal . WBC/HPF (test code = See_Comment [Autom ated message] 2194727162) The system Joust generated this result transmit ronan reference range : 0 - 5 HPF. The refe rence range was not u sed to interpret th is result as normal/abnormal . BACTERIA (test code = Negative Negative 9175241166) MUCOUS (test code = Slight Negative LPF A 9817188692) Lab Interpretation (test Abnormal code = 17616-8) [facility] BrookACTIVATED PARTIAL THRMPLAS [id number] 13:45:00 Test Item Value Reference Range Interpretation Comments APTT Patient (test code = See_Comment [ Automated message] 3173-2) The system [employer]oust generated this result transmitted ref erence range: 26 - 36 Seconds. The re ference range was not u sed to interpret this result as normal/abnor mal. Lab Interpretation (test Normal code = 09045-4) [facility]PO[facility] GLUCOSE (AUT[facility]ATED)2020-08-21 13:45:00 Test Item Value Reference Range Interpretation Comments POCT GLU (test code = 8991315620) 246 mg/dL 70-110 H Lab Interpretation (test code = Abnormal 23592-7) [facility] BrookHIV 1/2 AG-AB WITH [id number] 12:32:00 Test Item Value Reference Range Interpretation Comments HIV Negative Negative Semi-quantitative (test code = 10261-6) JAMES (test code = Non-reactive for HIV-1 JAMES) antigen and HIV-1/HIV-2 antibodies. ?No laboratory evidence of HIV infection. ?Repeat in 2-4 weeks if acute HIV infection is suspected. [facility] WITH [id number] 12:18:00 Test Item Value Reference Range Interpretation [...] RDW-SD (test code = 44.4 fL 38.5-51.6 85475-5) RDW-CV (test code = 14.5 % 12.1-15.4 788-0) PLT (test code = See_Comment H [Automated 777-3) message] The sy stem which generated this result transmitted reference range : 150 - 328 10*3/ ?L. The reference r torito was not used to interpret this result as normal/abnormal . MPV (test code = 8.5 fL 9.8-13 L 75364-6) NRBC/100 WBC (test See_Comment [Automat ed code = 2628771424) message] The system which generated this result transmitted reference range : 0.0 - 10.0 /100 WBCs. The refer ence range was not u sed to interpret th is result as normal/abnormal . NRBC x10^3 (test code <0.01 See_Comment [Auto mated = 5196927033) message] The s ystem which generated this result transmitted reference range : 10*3/?L. The reference range was not used to interpret this result as normal/abnormal . GRAN MAT (NEUT) % 90.4 % (test code = 770-8) IMM GRAN % (test code 1.30 % = 3656938614) LYMPH % (test code = 7.1 % 736-9) MONO % (test code = 0.5 % 5905-5) EOS % (test code = 0.1 % 713-8) BASO % (test code = 0.6 % 706-2) GRAN MAT x10^3(ANC) 7.74 10*3/uL 1.99-6.95 H (test code = 6620356921) IMM GRAN x10^3 (test 0.11 10*3/uL 0-0.06 H code = 2048577428) LYMPH x10^3 (test code 0.61 10*3/uL 1.09-3.23 L = 731-0) MONO x10^3 (test code 0.04 10*3/uL 0.36-1.02 L = 742-7) EOS x10^3 (test code = <0.03 0.06-0.53 L 711-2) BASO x10^3 (test code 0.05 10*3/uL 0.01-0.09 = 704-7) POLYCHROMASIA (test 2+ See_Comment [Automa ronan code = 09935-4) message] The system which generated this result transmitted reference range : 2+. The referen ce range was not u sed to interpret th is result as normal/abnormal . BANDS (test code = Increased A 4566318312) Lab Interpretation Abnormal (test code = 80348-4) [facility] BrookPROCALCITONIN2020-11-09 11:48:00 Test Item Value Reference Range Interpretation Comments Procalcitonin (test 0.36 ng/mL <0.07 H code = 5745256141) JAMES (test code = JAMES) INTERPRETATION OF [...] biotics/default.asp Lab Interpretation Abnormal (test code = 37811-7) [facility] BrookLANEATE [id number] 10:53:00 Test Item Value Reference Range Interpretation Comments LDH (test code = 8608903032) 351 U/L 300-600 Lab Interpretation (test code = Normal 73604-8) [facility] BrookSEDIMENTATION [id number] 10:07:00 Test Item Value Reference Range Interpretation Comments ESR (test code = See_Comment H [Automated message] 1274643065) The system Joust generated this result transmitted ref erence range: 0 - 10 m m/HR. The reference r torito was not used to interpret this result as normal/abnor mal. Lab Interpretation (test Abnormal code = 91478-7) [facility] BrookPOCT GLUCOSE (AUT[facility]ATED)2020-08-21 09:45:00 Test Item Value Reference Range Interpretation Comments POCT GLU (test code = 6170168771) 287 mg/dL 70-110 H Lab Interpretation (test code = Abnormal 95030-5) [facility] BrookGlycosylated Hemoglobin (A1C)2020-08-21 09:29:00 Test Item Value Reference Range Interpretation Comments HGB A1C (test code = 4548-4) 9.8 % 4-6 H Lab Interpretation (test code = Abnormal 05637-2) [facility] BrookCOVID-19 (ID NOW RAPID TESTING)2020-08-21 09:13:00 Test Item Value Reference Range Interpretation Comments SARS-CoV-2 Rapid ID NOW Not Detected Not Detected (test code = 97996-7) JAMES (test code = JAMES) ID NOW COVID-19 Assay is an isothermal nucleic acid amplification test intended for the qualitative detection of nucleic acid from SARS-CoV-2 viral RNA in nasopharyngeal ([employer]) specimens. It is used under Emergency [...] indicated. Lab Interpretation Normal (test code = 51947-4) [facility] BrookProthrombin Time / [id number] 08:59:00 Test Item Value Reference Range Interpretation Comments PROTIME PATIENT (test See_Comment H [Auto mated message] code = 5964-2) The system [employer] generated this result transmitted ref erence range: 10.1 - 1 2.6 Seconds. The reference range was not used to int erpret this result as normal/abnormal . INR (test code = 6301-6) Nor mal INR <1.1; Warfarin Therap eutic range 2.0 to 3. 0 or 2.5 to 3.5, dep ending upon the indica tions. Lab Interpretation (test Abnormal code = 43193-2) [facility] BrookaPTT2020-11-09 08:59:00 Test Item Value Reference Range Interpretation Comments APTT Patient (test code = See_Comment [ Automated message] 3173-2) The system [employer]oust generated this result transmitted ref erence range: 26 - 36 Seconds. The re ference range was not u sed to interpret this result as normal/abnor mal. Lab Interpretation (test Normal code = 84231-1) [facility] BrookBASI METABOLIC PANEL (NA, K, CL, CO2, GLUCOSE, BUN, CREATININE, CA)2020-08-21 08:52:00 Test Item Value Reference Range Interpretation Comments NA (test code = 136 mmol/L 135-145 9510837390) K (test code = 4.3 mmol/L 3.5-5 6094377266) CL (test code = 104 mmol/L 98-108 2776371880) CO2 TOTAL (test code = 24 mmol/L 23-31 5455656171) AGAP (test code = 2-16 6518270644) BUN (test code = 8 mg/dL 7-23 5005177628) GLUCOSE (test code = 308 mg/dL 70-110 H 0478204128) CREATININE (test code = 0.72 mg/dL 0.6-1.25 5986389604) CALCIUM (test code = 7.8 mg/dL 8.6-10.6 L 6716981120) eGFR Calculation mL/min/1.73m2 (Non-) (test code = 8505745455) eGFR Calculation mL/min/1.73m2 () (test code = 4294532321) JAMES (test code = JAMES) Association of [...] tests). Lab Interpretation Abnormal (test code = 27882-3) [facility] BrookHEPATIC FUNCTION PANEL (63609) (ALB,T.PRO,BILI T,BU/BC,ALT,AST,ALK PHOS)2020-08-21 08:52:00 Test Item Value Reference Range Interpretation Comments TOTAL BILI (test code = 7792128651) 0.8 mg/dL 0.1-1.1 BILI UNCON (test code = 5011707508) 0.3 mg/dL 0.1-1.1 BILI CONJ (test code = 9216779072) 0.0 mg/dL 0-0.3 T PROTEIN (test code = 6697951023) 5.7 g/dL 6.3-8.2 L ALBUMIN (test code = 3924249328) 2.7 g/dL 3.5-5 L ALK PHOS (test code = 8781023383) 245 U/L 34-122 H ALTv (test code = 1742-6) 37 U/L 5-50 AST(SGOT) (test code = 7483280133) 43 U/L 13-40 H Lab Interpretation (test code = Abnormal 90800-2) [facility]
--- NOTE | 2022-11-03 12:20 | EDPHYS ---
Physician Documentation [facility] Name: Kiel Ngo Age: 72 yrs Sex: Male : 1950 Arrival Date: 11/03/2022 Time: 12:04 Bed 15 Private MD: ED Physician Michael Bosch HPI: 11/03 12:05 This 72 yrs old Male presents to ER via EMS with complaints of Pain. jmm 12:05 The patient presents with pain. Onset: The symptoms/episode began/occurred Chronic. jmm Modifying factors: The symptoms are alleviated by nothing. the symptoms are aggravated by nothing. Is a 72-year-old male with history of atrial fibrillation, chronic hip pain the presents emerged part with complaints of ongoing hip pain. Denies fever. Denies change in character of the pain.. Historical: - Allergies: 12:06 Demerol; bp 12:06 metformin; bp 12:06 Morphine; bp - Home Meds: 12:06 hydromorphone 4 mg Oral tab 1 tab three times a day [Active]; Klonopin 2 mg Oral TbDi 2 bp tabs 4 times a day [Active]; - PMHx: 12:06 Atrial fibrillation; chronic back pain; Chronic right leg pain; neuropathy; bp - PSHx: 12:06 back sx; PANCREAS SX; R. Ankle SX; bp - Immunization history:: Adult Immunizations up to date. - Social history:: Smoking status: Patient denies any tobacco usage or history of. ROS: 12:05 Constitutional: Negative for fever, chills, and weight loss, Cardiovascular: Negative jmm for chest pain, palpitations, and edema, Respiratory: Negative for shortness of breath, cough, wheezing, and pleuritic chest pain. 12:05 MS/extremity: Positive for pain. 12:05 All other systems are negative. Exam: 12:05 Constitutional: This is a well developed, well nourished patient who is awake, alert, jmm and in no acute distress. Head/Face: atraumatic. Eyes: EOMI, no conjunctival erythema appreciated ENT: Moist Mucus Membranes Neck: Trachea midline, Supple Chest/axilla: Normal chest wall appearance and motion. Cardiovascular: Regular rate and rhythm. No edema appreciated Respiratory: Normal respirations, no respiratory distress appreciated Abdomen/GI: Non distended Back: Normal ROM Skin: General appearance color normal 12:05 Musculoskeletal/extremity: ROM: intact in all extremities. 12:05 Skin: Appearance: Color: normal in color. 12:05 Neuro: Orientation: is normal, Mentation: is normal, Memory: is normal. 12:05 Psych: Behavior/mood is pleasant, cooperative. Vital Signs: 12:05 BP 152 / 82; Pulse 100; Resp 20; Temp 97.1; Pulse Ox 97% on R/A; tm3 12:53 BP 151 / 72; Pulse 63; Resp 20; Pulse Ox 96% ; bp MDM: 12:05 Patient medically screened. [facility] 12:18 Data reviewed: vital signs, nurses notes. I considered the following discharge [facility] prescriptions or medication management in the emergency department Medications were administered in the Emergency Department. See MAR. Test considered but Not performed: Other Details CT. Historians other than the Patient: EMS: EMS. Counseling: I had a detailed discussion with the patient and/or guardian regarding: the historical points, exam findings, and any diagnostic results supporting the discharge/admit diagnosis, the need for outpatient follow up, to return to the emergency department if symptoms worsen or persist or if there are any questions or concerns that arise at home. Response to treatment: the patient's symptoms have markedly improved after treatment. Administered Medications: 12:46 Not Given (Patient Refused): Ketorolac 30 mg IM once bp Disposition: 13:35 Co-signature as Attending Physician, Michael Bosch MD. rn Disposition Summary: 11/03/22 12:19 Discharge Ordered Location: Home [facility] Condition: Stable [facility] Diagnosis - Chronic pain syndrome [facility] Followup: [facility] - With: Private Physician - When: 2 - 3 days - Reason: Recheck today's complaints, Continuance of care, Re-evaluation by your physician Discharge Instructions: - Discharge Summary Sheet jmm - Chronic Pain, Adult jmm - Hip Pain [facility] Forms: - Medication Reconciliation Form [facility] - Thank You Letter [facility] - Antibiotic Education jmm - Prescription Opioid Use jm Signatures: Kirby Short PA PA jmm Nieto, Roman, MD MD rn Quoc Demarco, RN RN bp
--- NOTE | 2022-11-03 12:20 | ER ---
Nurse's Notes [facility] Name: Kiel Ngo Age: 72 yrs Sex: Male : 1950 Arrival Date: 11/03/2022 Time: 12:04 Bed 15 Private MD: Diagnosis: Chronic pain syndrome Presentation: 11/03 12:05 Chief complaint: EMS states: PAIN MEDICATION. Coronavirus screen: At this time, the bp client does not indicate any symptoms associated with coronavirus-19. Ebola Screen: No symptoms or risks identified at this time. Initial Sepsis Screen: Does the patient meet any 2 criteria? HR > 90 bpm. No. Patient's initial sepsis screen is negative. Does the patient have a suspected source of infection? No. Patient's initial sepsis screen is negative. Risk Assessment: Do you want to hurt yourself or someone else? Patient reports no desire to harm self or others. Onset of symptoms is unknown. 12:05 Method Of Arrival: EMS: [facility] bp 12:05 Acuity: JOZEF 5 bp Triage Assessment: 12:06 General: Appears in no apparent distress. obese, unkempt, Behavior is cooperative, bp anxious. Pain: Complains of pain in left hip. EENT: No deficits noted. Neuro: No deficits noted. Cardiovascular: No deficits noted. Respiratory: No deficits noted. GI: No signs and/or symptoms were reported involving the gastrointestinal system. : No signs and/or symptoms were reported regarding the genitourinary system. Derm: No deficits noted. Musculoskeletal: No deficits noted. Historical: - Allergies: 12:06 Demerol; bp 12:06 metformin; bp 12:06 Morphine; bp - Home Meds: 12:06 hydromorphone 4 mg Oral tab 1 tab three times a day [Active]; Klonopin 2 mg Oral TbDi 2 bp tabs 4 times a day [Active]; - PMHx: 12:06 Atrial fibrillation; chronic back pain; Chronic right leg pain; neuropathy; bp - PSHx: 12:06 back sx; PANCREAS SX; R. Ankle SX; bp - Immunization history:: Adult Immunizations up to date. - Social history:: Smoking status: Patient denies any tobacco usage or history of. Screenin:05 [facility] ED Fall Risk Assessment (Adult) History of falling in the last 3 months, bp including since admission No falls in past 3 months (0 pts). Abuse screen: Denies threats or abuse. Denies injuries from another. Nutritional screening: No deficits noted. Tuberculosis screening: No symptoms or risk factors identified. Assessment: 12:05 General: SEE TRIAGE NOTE. bp 12:46 Reassessment: PT STATES HE REFUSES ALL MEDICATIONS EXCEPT DILAUDID, PROVIDER NOTIFIED. bp Vital Signs: 12:05 BP 152 / 82; Pulse 100; Resp 20; Temp 97.1; Pulse Ox 97% on R/A; tm3 12:53 BP 151 / 72; Pulse 63; Resp 20; Pulse Ox 96% ; bp ED Course: 12:04 Patient arrived in ED. bp 12:04 Kirby Short PA is PHCP. [facility] 12:04 Michael Bosch MD is Attending Physician. [facility] 12:05 Patient has correct armband on for positive identification. Bed in low position. Call bp light in reach. Side rails up X2. 12:06 Triage completed. bp 12:52 Quoc Demarco, RN is Primary Nurse. bp 12:53 No provider procedures requiring assistance completed. Patient did not have IV access bp during this emergency room visit. 12:56 Arm band placed on. bp Administered Medications: 12:46 Not Given (Patient Refused): Ketorolac 30 mg IM once bp Medication: 12:53 VIS not applicable for this client. bp Outcome: 12:19 Discharge ordered by MD. [facility] 12:53 Discharged to home via ambulance. bp 12:53 Condition: stable 12:53 Discharge instructions given to patient, Instructed on discharge instructions, follow up and referral plans. Demonstrated understanding of instructions, follow-up care. 13:01 Patient left the ED. bp Signatures: Anthony Bar tm3 Kirby Short PA PA Quoc Mendez, RN RN bp
[2022-11-03] MEDS ORDERED: KETOROLAC 30 MG/ML INJ ONE (12:33)
[2022-11-03 13:05] VITALS: TEMP 97.1
[2022-11-03 13:06] VITALS: BP 151/72; O2SAT 96
== END 2022-11-03 13:01 | disposition home or self-care (01) ==
LOC: ER 12:03
DX: G89.4 Chronic pain syndrome (principal); I48.91 Unspecified atrial fibrillation; Z88.5 Allergy status to narcotic agent; Z88.8 Allergy status to other drugs, medicaments and biological substances
CPT/HCPCS: 99283

== ENCOUNTER 2022-11-09 07:30 | Emergency (ER) | payer OTHER ==
--- OUTSIDE RECORDS SUMMARY | 2022-11-09 07:39 | XMS REPORT | Continuity of Care Document ---
:1950 Author Organization [facility] t Address [address] [place] [address] Care Team Providers Name Role Phone CALVIN [...] PACO LACEY Attending Clinician Unavailable Doctor Unassigned, [place] Attending Clinician Unavailable Wilder VILLAREAL, Angi K.HWong Attending Clinician Jl Mccabe MD Attending Clinician Kelly Washington MD Attending Clinician [phone] Mukul Gallardo MD Attending Clinician MUKUL GALLARDO Admitting Clinician Unavailable Harrison MD, Premal G Admitting Clinician KRUPA VIKA G Admitting Clinician Unavailable Nicci VILLAREAL, Mukul Anand Admitting Clinician Payers Payer Name Policy Type Policy Number Effective Date Expiration Date Tony doe MEDICARE PART A [id number] 2007 \\T\\ B 00:00:00 [employer] INDEMNITY [id number] 2016 00:00:00 MEDICARE PART A [id number] 2014 \\T\\ B - MEDICARE 00:00:00 INDEMNITY/TRADITIO [id number] 1223-04-03 NAL CHOICE - [employer] 00:00:00 Problems Condition [...] ents Source Name Type Date Date Clinician [place] [facility] Active Rash 2019- Univers ty to [...] Quantity Comments Source Exposure to Not sure [place] of SARS-CoV-2 [place] [facility] (event) Branch History of Chews Tobacco University of tobacco use [place] [facility] History SDOH 2020-11-17 2020-11-17 5 University o f Financial 00:00:00 00:00:00 [place] [facility] History SDIA Food 2020-11-17 2020-11-17 1 Univers ity of Worry 00:00:00 00:00:00 [place] [facility] History SDOH Food 2020-11-17 2020-11-17 1 Univers ity of Scarcity 00:00:00 00:00:00 [place] [facility] History SDOH 2020-11-17 2020-11-17 1 University o f Transport Med 00:00:00 00:00:00 [place] Medic al Branch History SDOH 2020-11-17 2020-11-17 1 University o f Transport Non-Med 00:00:00 00:00:00 [facility] edical Branch Education 2020-11-16 2020-11-16 21 [place] of 00:00:00 00:00:00 [facility] Alcohol intake 2020-11-16 2020-11-16 Ex-drinker [facility] 00:00:00 00:00:00 (finding) [facility] Tobacco use and 2020-08-21 2020-08-21 Former user Universi ty of exposure 00:00:00 00:00:00 [facility] Tobacco Comment 2020-08-21 2020-08-21 quit 10 years Univer sity of 00:00:00 00:00:00 ago, started in [place] Med ical 2nd year of Branch college (~40 years) Alcohol Comment 2020-08-21 2020-08-21 Used to have 2-3 Uni versity of 00:00:00 00:00:00 six-packs of [place] Medica l beer daily x 20 Branch years, quit 2004 History [facility] 2020-08-21 2020-08-21 99 University o f Alcohol Frequency 00:00:00 00:00:00 [place] M edical Branch History [facility] 2020-08-21 2020-08-21 99 [place] o f Alcohol Std 00:00:00 00:00:00 [place] [facility] Drinks Branch History [facility] 2020-08-21 2020-08-21 99 [place] o f Alcohol Binge 00:00:00 00:00:00 [facility] al [facility] Sex Assigned At [birth year] Universit y of 00:00:00 00:00:00 [facility] Smoking Status Start Date Stop [...] by ity of tablet 22:47: mouth at [place] 18 bedtime. Medical Branch HYDROmorpho 2020-0 Yes [...] by ity of tablet 22:47: mouth at [place] 18 bedtime. Medical Branch HYDROmorpho 0 Yes [...] by ity of tablet 16:47: mouth at [place] 18 bedtime. Medical Branch HYDROmorpho 0 Yes [...] 0845, Until Discontinu ed, Routine amLODIPine Yes [id number] 10mg Take 1 Univers 10 mg 3-07 tablet by ity of tablet 00:00: mouth [place] 00 daily. Medical Branch clotrimazol Yes [id number] Apply to Univers e 1 % 3-07 face/ears, ity of topical 00:00: armpits, [place] cream 00 pannus and Medical back/any Branch other rash twice a day fluocinonid 0 Yes [id number] Apply to Univers e 0.05 % 3-07 scalp ity of solution 00:00: twice a [place] 00 day Medical Branch triamcinolo Yes [id number] Apply to Univers ne 3-07 back, ity of acetonide 00:00: armpits [place] 0.1 % cream 00 and other Med ical affected Branch areas twice daily, please mix with clotrimazo le hydrOXYzine Yes [id number] 10mg Take 1 Univers 10 mg 3-07 tablet by ity of tablet 00:00: mouth 2 00 (two) Medical times Branch daily. amLODIPine Yes [id number] 10mg Take 1 Univers 10 mg 3-07 tablet by ity of tablet 00:00: mouth [place] 00 daily. Medical Branch clotrimazol Yes [id number] Apply to Univers e 1 % 3-07 face/ears, ity of topical 00:00: armpits, [place] cream 00 pannus and Medical back/any Branch other rash twice a day fluocinonid Yes [id number] Apply to Univers e 0.05 % 3-07 scalp ity of solution 00:00: twice a day Medical Branch triamcinolo Yes [id number] Apply to Univers ne 3-07 back, ity of acetonide 00:00: armpits [place] 0.1 % cream 00 and other Med ical affected Branch areas twice daily, please mix with clotrimazo le hydrOXYzine Yes [id number] 10mg Take 1 Univers 10 mg 3-07 tablet by ity of tablet 00:00: mouth 2 [place] 00 (two) Medical times Branch daily. amLODIPine Yes [id number] 10mg Take 1 Univers 10 mg 3-07 tablet by ity of tablet 00:00: mouth [place] 00 daily. Medical Branch clotrimazol 0 Yes [id number] Apply to Univers e 1 % 3-07 face/ears, ity of topical 00:00: armpits, [place] cream 00 pannus and Medical back/any Branch other rash twice a day fluocinonid 2020-0 Yes [id number] Apply to Univers e 0.05 % 3-07 scalp ity of solution 00:00: twice a day Medical Branch triamcinolo 2020-0 Yes [id number] Apply to Univers ne 3-07 back, ity of acetonide 00:00: armpits [place] 0.1 % cream 00 and other Med ical affected Branch areas twice daily, please mix with clotrimazo le hydrOXYzine Yes [id number] 10mg Take 1 Univers 10 mg 3-07 tablet by ity of tablet 00:00: mouth 2 [place] (two) Medical times Branch daily. amLODIPine Yes [id number] 10mg Take 1 Univers 10 mg 3-07 tablet by ity of tablet 00:00: mouth [place] 00 daily. Medical Branch clotrimazol Yes [id number] Apply to Univers e 1 % 3-07 face/ears, ity of topical 00:00: armpits, [place] cream 00 pannus and Medical back/any Branch other rash twice a day fluocinonid Yes [id number] Apply to Univers e 0.05 % 3-07 scalp ity of solution 00:00: twice a day Medical Branch triamcinolo 0 Yes [id number] Apply to Univers ne 3-07 back, ity of acetonide 00:00: armpits [place] 0.1 % cream 00 and other Med ical affected Branch areas twice daily, please mix with clotrimazo le hydrOXYzine Yes [id number] 10mg Take 1 Univers 10 mg 3- tablet by ity of tablet 00:00: mouth 2 (two) Medical times Branch daily. cephALEXin 2020-2020- No [id number] 500mg Take 1 Univers 500 mg -04 14- capsule by ity of capsule 00:00: 05:59 mouth [place] 00 :00 every 6 Medical (six) Branch hours for 3 days. cephALEXin 2020-0 2020- No [id number] 500mg Take 1 Univers 500 mg 3-04 14- capsule by ity of capsule 00:00: 05:59 mouth [place] 00 :00 every 6 Medical (six) Branch hours for 3 days. hydrOXYzine 2020-2020- No [id number] 10mg Take 1 Univers 10 mg 3- 03-07 tablet by ity of tablet 00:00: 00:00 mouth 2 [place] 00 :00 (two) Medical times [facility] daily. morpHINE Yes 4mg 4 mg, Slow Uni vers injection 4 -06 IV Push, ity of mg 22:40: Q6HPRN, [place] 02 Starting Medical 12/16/20 [facility] at 1640, Until Discontinu ed, Routine, Pain [...] 00 :00 dose, Sat Medical 12/16/20 at [facility] 0515, Routine lactated 2020- No 1000mL at 125 Univ ers ringers IV 12-16 03-06 mL/hr, ity of infusion 01:00: 00:16 1,000 mL, [place] 1,000 mL 00 :00 IV Medical Infusion, [facility] ONCE, 1 dose, 12/15/20 at 1900, Routine iohexol 2020- No 100mL 100 mL, Unive rs (OMNIPAQUE 12-15-05 Intravenou it y of 350 22:24: 22:24 s, ONCE, 1 [place] BULK-100 00 :00 dose, Fri Medica l mL) 12/15/20 at [facility] injection 1645, 100 mL Routine cephALEXin 2020- [...] 0.9% 2020- No 500mL at 999 [facility] ers (NS) bolus 12-15-05 mL/hr, 500 it y of infusion 16:00: 15:26 mL, IV [place] 500 mL 00 :00 Piggyback, Medical ONCE, 1 Branch dose, Fri12/15/20 at 1000, STAT HYDROmorpho Yes 4mg 4 mg, [facility] 05 Oral, BID, ity of (DILAUDID) 15:30: First dose [place] tablet 4 mg 00 (after Medica l last Branch modificati on) on Fri12/15/20 at 0930, Until Discontinu ed, Routine amLODIPine 2020- No [id number] 10mg Take 1 Univers 10 mg 12-1507 tablet by ity of tablet 00:00: 00:00 mouth [place] 00 :00 daily. Medical Branch HYDROmorpho 2020- No 1mg 1 mg, [facility] ers ne 12-14 03-05 Oral, ity of (DILAUDID) 17:35: 15:18 Q6HPRN, [place] tablet 1 mg 30 :[address] [facility] 12/14/20 Branch at 1135, Until Fri12/15/20 at 0918, Routine, Pain (scale 7-10) hydrOXYzine Yes 10mg 10 mg, [facility] ers (ATARAX) 304 Oral, BID, ity o f tablet 10 17:30: First dose [place] mg 00 on [facility] 12/14/20 at Branch 1130, Until Discontinu ed, Routine lisinopriL 0 Yes 5mg 5 mg, Univer s (PRINIVIL,Z -04 Oral, ity of ESTRIL) 17:30: DAILY, [place] tablet 5 mg 00 First dose Me dical on [facility] Branch 12/14/20 at 1130, Until Discontinu ed, Routine triamcinolo 2020- No [id number] Apply to Univers ne 12-14 back, ity of acetonide 00:00: 00:00 armpits [place] 0.1 % cream 00 :00 and other Med ical affected Branch areas twice daily, please mix with clotrimazo le clotrimazol 2020- No [id number] Apply to Univers e 1 % 12-14 face/ears, ity of topical 00:00: 00:00 armpits, [place] cream 00 :00 pannus and Medical back/any Branch other rash twice a day fluocinonid 2020- No [id number] Apply to Univers e 0.05 % 12-14 scalp ity of solution 00:00: 00:00 twice a [place] 00 :00 day Medical Branch hydrOXYzine 2020- No [id number] 10mg Take 1 Univers 10 mg 12-14 [...] 1 [place] mg 00 :00 dose, [facility] 12/12/20 at Branch 2145, Routine insulin Yes 15U 15 Units, [facility] rs glargine 12-12 Subcutaneo ity o f (LANTUS 15:00: us, DAILY, [place] U-100) 00 First dose Medical injection on [facility] 15 Units 12/12/20 at 0900, Until Discontinu ed hydrOXYzine 2020- No 10mg 10 mg, Uni vers (ATARAX) 12-12 03-02 Oral, ity of tablet 10 08:15: 07:33 ONCE, 1 [place] mg 00 :00 dose, [facility] 12/12/20 at Branch 0215, Routine mirtazapine Yes 7.5mg 7.5 mg, Un toi (REMERON) 3-02 Oral, QHS, ity of tablet 7.5 03:00: First dose [place] mg 00 on [facility] 12/11/20 at Branch 2100, Until Discontinu [...] Oral, ity of (TYLENOL 23:23: 13:49 Q6HPRN, [place] #3) 300-30 43 :08 Starting Medic al [...] 00 Fri12/11/20 Me dical cream at 1315, [facility] Until Discontinu ed, Routine hydrocortis 0 Yes [...] ity of 1,000 mg in 19:00: 17:35 [place] NaCl 0.9% 00 :26 Q8H ABX, [...] 5 Units, [facility] lispro 12-11 Subcutaneo ity of (human) 18:00: us, TID [place] (HumaLOG 00 MEALS, Medical U-100) First dose Branch injection 5 on Mon Units 12/11/20 at 1200, Until Discontinu ed Polyethylen Yes 17g 17 g, [facility] rs e Glycol 12-11 Oral, ity of 3350 17:47: [id number], [place] (MIRALAX) 05 Starting Medica l powder 17 g 12/11/20 Br anch at 1147, Until Discontinu ed, Routine, Constipati on acetaminoph Yes 650mg 650 mg, Un toi en 12-11 Oral, ity of (TYLENOL) 16:51: Q6HPRN, [place] tablet 650 28 Starting Medic al mg [...] 0630, STAT piperacilli No 3.375g 3.375 g, [facility] n-tazobacta 12-11 IV ity of m (ZOSYN) 12:00: 17:48 Piggyback, [place] injection 00 :24 Q6H, First Medi jose c 3.375 g dose on Branch Fri12/11/20 at 0600, Until Discontinu ed, KAHLIL
Re ason for Anti-Infec tive: Empiric Therapy for Suspected Infection< br>Empiric Therapy Site: Skin / Soft tissue
Duration of therapy: 72 hours sennosides- Yes [id number] 1{tbl} Take [address] [facility] docusate 2-09 tablet by ity of sodium 00:00: mouth 2 [place] 8.6-50 mg 00 (two) Medical per tablet times Branch daily. hydrocortis Yes [id number] Apply to [facility] one 2.5 % 11-21 affected ity of cream 00:00: area(s) 2 [place] 00 (two) Medical times Branch daily. blood sugar Yes [id number] Use to [facility] diagnostic 2 check ity of (FREESTYLE 00:00: blood [place] LITE 00 glucose Medical STRIPS) 4-5 times Branch strip daily. Polyethylen Yes [id number] 17g Take 1 Univers e Glycol 2-09 Packet by ity of 3350 17 00:00: mouth [place] gram powder 00 every 24 Medi jose c (twenty-fo Branch ur) hours as needed for Constipati on. sennosides- Yes [id number] 1{tbl} Take 1 Univers docusate 2-09 tablet by ity of sodium 00:00: mouth 2 [place] 8.6-50 mg 00 (two) Medical per tablet times Branch daily. hydrocortis Yes [id number] Apply to Univers one 2.5 % 2-09 affected ity of cream 00:00: area(s) 2 [place] 00 (two) Medical times Branch daily. blood sugar Yes [id number] Use to Univers diagnostic 11-21 check ity of (FREESTYLE 00:00: blood [place] LITE 00 glucose Medical STRIPS) 4-5 times Branch strip daily. Polyethylen Yes [id number] 17g Take 1 Univers e Glycol 2-09 Packet by ity of 3350 17 00:00: mouth [place] gram powder 00 every 24 Medi jose c (twenty-fo Branch ur) hours as needed for Constipati on. sennosides- Yes [id number] 1{tbl} Take 1 Univers docusate 2-09 tablet by ity of sodium 00:00: mouth 2 [place] 8.6-50 mg 00 (two) Medical per tablet times Branch daily. hydrocortis Yes [id number] Apply to Univers one 2.5 % 2-09 affected ity of cream 00:00: area(s) 2 [place] 00 (two) Medical times Branch daily. blood sugar Yes [id number] Use to Univers diagnostic 11-21 check ity of (FREESTYLE 00:00: blood [place] LITE 00 glucose Medical STRIPS) 4-5 times Branch strip daily. Polyethylen 2020-0 Yes [id number] 17g Take 1 Univers e Glycol 2-09 Packet by ity of 3350 17 00:00: mouth [place] gram powder 00 every 24 Medi jose c (twenty-fo Branch ur) hours as needed for Constipati on. sennosides- Yes [id number] 1{tbl} Take 1 Univers docusate 2-09 tablet by ity of sodium 00:00: mouth 2 [place] 8.6-50 mg 00 (two) Medical per tablet times Branch daily. hydrocortis Yes [id number] Apply to [facility] one 2.5 % 11-21 affected ity of cream 00:00: area(s) 2 [place] 00 (two) Medical times Branch daily. blood sugar Yes [id number] Use to [facility] diagnostic 11-21 check ity of (FREESTYLE 00:00: blood [place] LITE 00 glucose Medical STRIPS) 4-5 times Branch strip daily. Polyethylen Yes [id number] 17g Take 1 Univers e Glycol 11-21 Packet by ity of 3350 17 00:00: mouth [place] gram powder 00 every 24 Medi jose c (twenty-fo Branch ur) hours as needed for Constipati on. Insulin 2020- No [id number] 15U inject 15 Univers Glargine 11-21- Units ity of (LANTUS 00:00: 05:59 under the [employer] SOLOSTAR 00 :00 skin every Medic al U-100 morning Branch INSULIN) for 30 100 unit/mL days. (3 mL) injection venlafaxine 2020- No [id number] 150mg Take 1 Univers XR 150 mg 11-21 capsule by ity of 24 hr 00:00: 05:59 mouth 3 [place] capsule 00 :00 (three) Medical times Branch daily for 30 days. Insulin 2020- No [id number] 15U inject 15 Univers Glargine 11-21-12 Units ity of (LANTUS 00:00: 05:59 under the [employer] [place] SOLOSTAR 00 :00 skin every Medic al U-100 morning Branch INSULIN) for 30 100 unit/mL days. (3 mL) injection venlafaxine 2020- No [id number] 150mg Take 1 Univers XR 150 mg 11-21- capsule by ity of 24 hr 00:00: 05:59 mouth 3 [place] capsule 00 :00 (three) Medical times Branch daily for 30 days. triamcinolo 2020- No [id number] Apply to [facility] ne 11-21-04 area(s) 2 ity of acetonide 00:00: 00:00 (two) [place] 0.1 % cream 00 :00 times Medical daily. Branch cephALEXin 2020- No [id number] 1000mg Take 2 Univers 500 mg 11-21 capsules ity of capsule 00:00: 00:00 by mouth 3 [place] 00 :00 (three) Medical times Branch daily. doxycycline 2020- No [id number] 100mg Take 1 Univers hyclate 100 11-21 capsule by i ty of mg capsule 00:00: 00:00 mouth [place] 00 :00 every 12 Medical (twelve) Branch hours. lactobacill 2020- No [id number] 1{tbl} Take 1 Univers us 11-21 tablet by ity of acidophilus 00:00: 00:00 mouth 2 [place] 25 million 00 :00 (two) Medical cell -100 times Branch mg captab daily. bisacodyL 2020- No [id number] 10mg Insert 1 Univers 10 mg 11-21 Suppositor ity of suppository 00:00: 00:00 y into [place] 00 :00 rectum at Medical bedtime as Branch needed for Constipati on. ALPRAZolam 2020- No [id number] .25mg Take 1 Univers (XANAX) 11-21 tablet by ity of 0.25 mg 00:00: 00:00 mouth 2 [place] tablet 00 :00 (two) Medical times Branch daily. hydrOXYzine 2020- No [id number] 20mg Take 2 Univers 10 mg 11-21 [...] 3 ity of 6 mg 01:13: (three) [place] capsule 36 times Medical daily. Branch Insulin 2019-10 Yes 15U inject 15 Unive rs Glargine 1-12 Units ity of (LANTUS 01:13: under the [place] SOLOSTAR) 36 skin. Medical 100 unit/mL Branch (3 mL) InPn INSULIN 2019-10 Yes 5U inject 5 Univer s ASPART 1-12 Units ity of (NOVOLOG 01:13: under the [facility] FLEXPEN SC) 36 skin. Medical Branch [...] 3 ity of 6 mg 01:13: (three) [place] capsule 36 times Medical daily. Branch Insulin 2019-10 Yes 15U inject 15 Unive rs Glargine 1-12 Units ity of (LANTUS 01:13: under the [place] SOLOSTAR) 36 skin. Medical 100 unit/mL Branch (3 mL) InPn INSULIN 2019-10 Yes 5U inject 5 Univer s ASPART 1-12 Units ity of (NOVOLOG 01:13: under the [facility] FLEXPEN SC) 36 skin. Medical Branch [...] Units ity of (LANTUS 01:13: under the [place] SOLOSTAR) 36 skin. Medical 100 unit/mL Branch (3 mL) InPn INSULIN 2019-10 Yes 5U inject 5 Univer s ASPART 1-12 Units ity of (NOVOLOG 01:13: under the [facility] s FLEXPEN SC) 36 skin. Medical Branch ALPRAZolam 2019-10 Yes .25mg Take 0.25 U nivers (XANAX) 1-12 mg by ity of 0.25 mg 01:13: mouth 2 [place] tablet 36 (two) Medical times Branch daily. HYDROXYZINE 2019-10 2020- No 25mg Take 25 mg Univers PAMOATE 1-11 11-11 by mouth ity of ORAL 20:04: 00:00 daily. [place] 34 :00 Medical Branch hydrocortis 2019-10 Yes [id number] Apply to Univers one 2.5 % 1-11 affected ity of cream 00:00: area(s) 2 [place] 00 (two) Medical times Branch daily. hydrOXYzine 2019-10 Yes [id number] 20mg Take 2 Univers 10 mg 1-11 tablets by ity of tablet 00:00: mouth [place] 00 every 8 Medical (eight) Branch hours as needed for Itching or Anxiety. Polyethylen 2019-10 Yes [id number] 17g Take 1 Univers e Glycol 1-11 Packet by ity of 3350 17 00:00: mouth [place] gram powder 00 every 24 Medi jose c (twenty-fo Branch ur) hours as needed for Constipati on. hydrocortis 2019-10 Yes [id number] Apply to Univers one 2.5 % 1-11 affected ity of cream 00:00: area(s) 2 [place] 00 (two) Medical times Branch daily. hydrOXYzine 2019- Yes [id number] 20mg Take 2 Univers 10 mg 1-11 tablets by ity of tablet 00:00: mouth [place] 00 every 8 Medical (eight) Branch hours as needed for Itching or Anxiety. Polyethylen 2019- Yes [id number] 17g Take 1 Univers e Glycol 1-11 Packet by ity of 3350 17 00:00: mouth [place] gram powder 00 every 24 Medi jose c (twenty-fo Branch ur) hours as needed for Constipati on. hydrocortis 2019- Yes [id number] Apply to Univers one 2.5 % 1-11 affected ity of cream 00:00: area(s) 2 [place] (two) Medical times Branch daily. hydrOXYzine 2019-10 Yes [id number] 20mg Take 2 Univers 10 mg 1-11 tablets by ity of tablet 00:00: mouth [place] 00 every 8 Medical (eight) Branch hours as needed for Itching or Anxiety. Polyethylen 2019- Yes [id number] 17g Take 1 Univers e Glycol 1-11 Packet by ity of 3350 17 00:00: mouth [place] gram powder 00 every 24 Medi jose c (twenty-fo Branch ur) hours as needed for Constipati on. hydrocortis 2019-10 Yes [id number] Apply to Univers one 2.5 % 1-11 affected ity of cream 00:00: area(s) 2 [place] (two) Medical times Branch daily. hydrOXYzine 2019-10 Yes [id number] 20mg Take 2 Univers 10 mg 1-11 tablets by ity of tablet 00:00: mouth [place] 00 every 8 Medical (eight) Branch hours as needed for Itching or Anxiety. Polyethylen 2019-10 Yes [id number] 17g Take 1 Univers e Glycol 1-11 Packet by ity of 3350 17 00:00: mouth [place] gram powder 00 every 24 Medi jose c (twenty-fo Branch ur) hours as needed for Constipati on. hydrocortis 2019-10 Yes [id number] Apply to Univers one 2.5 % 1-11 affected ity of cream 00:00: area(s) 2 [place] 00 (two) Medical times Branch daily. hydrOXYzine 2019-10 Yes [id number] 20mg Take 2 Univers 10 mg 1-11 tablets by ity of tablet 00:00: mouth [place] 00 every 8 Medical (eight) Branch hours as needed for Itching or Anxiety. Polyethylen 2019- Yes [id number] 17g Take 1 Univers e Glycol 1-11 Packet by ity of 3350 17 00:00: mouth [place] gram powder 00 every 24 Medi jose c (twenty-fo Branch ur) hours as needed for Constipati on. hydrocortis 2019-10 Yes [id number] Apply to Univers one 2.5 % 1-11 affected ity of cream 00:00: area(s) 2 [place] 00 (two) Medical times Branch daily. hydrOXYzine 2019- Yes [id number] 20mg Take 2 Univers 10 mg 1-11 tablets by ity of tablet 00:00: mouth [place] 00 every 8 Medical (eight) Branch hours as needed for Itching or Anxiety. Polyethylen 2019- Yes [id number] 17g Take 1 Univers e Glycol 1-11 Packet by ity of 3350 17 00:00: mouth [place] gram powder 00 every 24 Medi jose c (twenty-fo Branch ur) hours as needed for Constipati on. hydrocortis 2019- Yes [id number] Apply to Univers one 2.5 % 1-11 affected ity of cream 00:00: area(s) 2 [place] 00 (two) Medical times Branch daily. hydrOXYzine 2019- Yes [id number] 20mg Take 2 Univers 10 mg 1-11 tablets by ity of tablet 00:00: mouth [place] 00 every 8 Medical (eight) Branch hours as needed for Itching or Anxiety. Polyethylen 2019- Yes [id number] 17g Take 1 Univers e Glycol 1-11 Packet by ity of 3350 17 00:00: mouth [place] gram powder 00 every 24 Medi jose c (twenty-fo Branch ur) hours as needed for Constipati on. triamcinolo 2019- 2020- No [id number] Apply to Univers ne 10-23 area(s) 2 ity of acetonide 00:00: 05:59 (two) [place] 0.1 % cream 00 :00 times Medical daily for Branch 14 days. triamcinolo 2019- 2020- No [id number] Apply to Univers ne 10-23 area(s) 2 ity of acetonide 00:00: 05:59 (two) [place] 0.1 % cream 00 :00 times Medical daily for Branch 14 days. triamcinolo 2020- 2020- No [id number] Apply to [facility] ne 10-23 area(s) 2 ity of acetonide 00:00: 05:59 (two) [place] 0.1 % cream 00 :00 times Medical daily for Branch 14 days. KCL 2019- 2020- No 40meq 40 mEq, Univers (KLOR-CON 1-10 11-10 Oral, ONCE ity of M20) tablet 16:15: 16:23 NOW, 1 [place] 40 mEq 00 :00 dose, [facility] 08/22/20 Branch at 1015, Routine HYDROmorpho 2019-10 Yes 1mg 1 mg, Unive rs ne 1-10 Oral, ity of (DILAUDID) 15:07: Q6HPRN, [place] tablet 1 mg 53 Starting [facility] 08/22/20 at 0907, Until Discontinu ed, Routine, Pain (scale 7-10) hydrocortis 2019-10 Yes Topical Uni vers one 2.5 % 1-10 (Apply To ity o f cream 02:00: Affected [place] 00 Areas), Medical BID, First Branch dose on [facility] 08/21/20 at 2000, Until Discontinu ed, Routine triamcinolo 2019-10 Yes Topical, Un toi ne 1-10 BID, First ity of acetonide 02:00: dose on [place] (TRIDERM) [facility] Medical 0.1 % cream 08/21/20 at Br anch 2000, Until Discontinu ed, Routine hydrOXYzine 2019-10 Yes 20mg 20 mg, Univ ers (ATARAX) 09 Oral, ity of tablet 20 17:39: Q8HPRN, [place] mg 12 Starting [facility] 08/21/20 at 1139, Until Discontinu ed, Routine, Itching, Anxiety sennosides- 2019-10 Yes 1{tbl} 1 tablet, Univers docusate 10-21 Oral, ity of sodium 15:00: DAILY, [place] (SENOKOT-S) 00 First dose Me dical 8.6-50 mg on [facility] per tablet 08/21/20 at 1 tablet 0900, [...] [place] capsule 150 00 on [facility] Medica l mg 08/21/20 at Branch 0800, [...] 59 :43 Starting Medica l mg [facility] 08/21/20 at 0656, Until Fri08/21/20 at 1139, Routine, Itching, Mild Rash, Congestion /Allergies , alternate with hydroxyzin e hydrOXYzine 2019-10- No 10mg 10 mg, Uni vers (ATARAX) 10-21 Oral, ity of tablet 10 10:20: 12:57 Q6HPRN, [place] mg 22 :12 Starting Medical [facility] 08/21/20 at 0420, Until Fri08/21/20 at 0657, [...] 1 ity o f 09:30: 09:14 dose, [facility] 00 :00 08/21/20 at [facility] 0330, Branch Routine Polyethylen 2019-10 Yes 17g 17 g, [facility] Glycol 10-21 Oral, ity of 3350 08:29: [id number], [place] (MIRALAX) 09 Starting Medica l powder 17 g [facility] 08/21/20 at 0229, Until Discontinu ed, Routine, Constipati on lanolin 2019-10 Yes Topical, Univer s alcohol-mo- 10-21 PRN, ity of w.pet-ceres 08:26[place] (EUCERIN[place] 30 [facility] cream 08/21/20 at Branch 0226, Until [...] 1-3) sotalol 2019-10 2020- No Take by [facility] s (BETAPACE) 10-21 mouth ity of 240 mg 07:43: 00:00 every 12 [place] tablet 30 :00 (twelve) Medical hours. Branch blood sugar Yes Use to [facility] ers diagnostic 4-25 check ity of (FREESTYLE 00:00: blood [place] LITE 00 glucose Medical STRIPS) 4-5 times Branch strip daily. blood sugar Yes Use to [facility] ers diagnostic 4-25 check ity of (FREESTYLE 00:00: blood [place] LITE 00 glucose Medical STRIPS) 4-5 times Branch strip daily. blood sugar Yes Use to [facility] ers diagnostic 4-25 check ity of (FREESTYLE 00:00: blood [place] LITE 00 glucose Medical STRIPS) 4-5 times Branch strip daily. blood sugar Yes Use to [facility] ers diagnostic 4-25 check ity [...] 13:00:00 148 mm[Hg] Univer sity of [facility] Diastolic blood 2021-08-22 13:00:00 84 mm[Hg] Unive rsity of [facility] Heart rate 2021-08-22 13:00:00 103 /min [facility] Respiratory rate 2021-08-22 13:00:00 18 /min General acute hospital Oxygen saturation in 2021-08-22 13:00:00 95 /min University of Arterial blood by [facility] Pulse oximetry [facility] Body temperature 2021-08-22 12:22:00 36.72 [facility] Systolic blood 2020-12-17 18:35:00 139 mm[Hg] Univer sity of [facility] Diastolic blood 2020-12-17 18:35:00 87 mm[Hg] Unive rsity of [facility] Heart rate 2020-12-17 18:35:00 110 /min [facility] Body temperature 2020-12-17 18:35:00 37.72 [facility] Respiratory rate 2020-12-17 18:35:00 18 /min [facility] in 2020-12-17 18:35:00 93 /min University of Arterial blood by [facility] Pulse oximetry Branch Body height 2020-12-12 08:21:00 180.3 cm [facility] [place] [facility] Body weight 2020-12-12 08:21:00 103.42 kg [facility] [place] [facility] BMI 2020-12-12 08:21:00 31.80 kg/m2 [facility] [place] [facility] Systolic blood 2020-12-17 18:35:00 139 mm[Hg] Univer sity of pressure [place] [facility] Diastolic blood 2020-12-17 18:35:00 87 mm[Hg] Unive rsity of pressure [place] [facility] Heart rate 2020-12-17 18:35:00 110 /min [facility] [place] [facility] Body temperature 2020-12-17 18:35:00 37.72 [place] [facility] ers[facility] [place] [facility] Respiratory rate 2020-12-17 18:35:00 18 /min Univ ersity [facility] [place] [facility] Oxygen saturation in 2020-12-17 18:35:00 93 /min University of Arterial blood by [facility] Pulse oximetry Branch Body height 2020-12-12 08:21:00 180.3 cm [facility] [place] [facility] Body weight 2020-12-12 08:21:00 103.42 kg [facility] [place] [facility] BMI 2020-12-12 08:21:00 31.80 kg/m2 [facility] [place] [facility] Systolic blood 2020-08-23 19:27:00 140 mm[Hg] Univer sity of pressure [place] [facility] Diastolic blood 2020-08-23 19:27:00 79 mm[Hg] Unive rsity of pressure [place] [facility] Heart rate 2020-08-23 19:27:00 99 /min [facility] [place] [facility] Body temperature 2020-08-23 19:27:00 36 [place] [facility] ers[facility] [place] [facility] Respiratory rate 2020-08-23 19:27:00 18 /min Univ ersity [facility] [place] [facility] Oxygen saturation in 2020-08-23 19:27:00 93 /min University of Arterial blood by [facility] Pulse oximetry Branch Body weight 2020-08-21 07:20:00 104.962 kg [facility] [place] [facility] BMI 2020-08-21 07:20:00 32.27 kg/m2 [facility] [place] [facility] Systolic blood 2020-08-23 19:27:00 140 mm[Hg] Univer sity of pressure [facility] Diastolic blood 2020-08-23 19:27:00 79 mm[Hg] [facility] pressure [facility] Heart rate 2020-08-23 19:27:00 99 /min [facility] Body temperature 2020-08-23 19:27:00 36 [facility] Respiratory rate 2020-08-23 19:27:00 18 /min General acute hospital Oxygen saturation in 2020-08-23 19:27:00 93 /min [facility] blood by [facility] Pulse oximetry [facility] Body weight 2020-08-21 07:20:00 104.962 kg [facility] BMI 2020-08-21 07:20:00 32.27 kg/m2 [facility] Procedures Procedure Date / Time Performing Clinician Source Performed POCT GLUCOSE (AUTOMATED) 2020-12-17 15:42:00 Favio Harrisonal G Uni [facility] BASIC METABOLIC PANEL 2020-12-17 10:45:00 Paul Bean [facility] (NA, K, CL, CO2, GLUCOSE, [facility] l Branch BUN, CREATININE, CA) CBC WITH DIFF 2020-12-17 10:45:00 Pual Bean [facility] POCT GLUCOSE (AUTOMATED) 2020-12-17 02:36:00 Harrison [facility] Uni [facility] XR TIBIA FIBULA 2 VW LEFT 2020-12-16 23:38:00 [facility] PO[facility] GLUCOSE (AUTOMATED) 2020-12-16 23:20:00 Harrison, [facility]al [facility]SE ([facility]OMATED) 2020-12-16 20:10:00 Harrison, Premal [facility] PO[facility]SE (AUTOMATED) 2020-12-16 14:43:00 [facility] BASIC METABOLIC PANEL 2020-12-16 13:51:00 Paul Bean [facility] (NA, K, CL, CO2, GLUCOSE, [facility] BUN, CREATININE, CA) CBC WITH DIFF 2020-12-16 13:51:00 Paul Bean [facility] POCT GLUCOSE (AUTOMATED) 2020-12-16 04:00:00 Harrison, Premal G Uni versity of [facility] POCT GLUCOSE (AUTOMATED) 2020-12-16 00:14:00 Harrison, Premal G Uni versity [facility] CT CHEST PULMONARY 2020-12-15 22:29:38 Paul Bean [facility] ANGIOGRAM [facility] POCT GLUCOSE (AUTOMATED) 2020-12-15 19:26:00 Harrison, Premal [facility] POCT GLUCOSE (AUTOMATED) 2020-12-15 15:13:00 Krupa, Premal G Uni [facility] HB ECG ROUTINE & RHYTHM 2020-12-15 14:25:[address] [facility] MAGNESIUM 2020-12-15 12:01:00 Paul Bean Sivakumar [facility] BASIC METABOLIC PANEL 2020-12-15 12:01:00 Paul Bean [facility] (NA, K, CL, CO2, GLUCOSE, [facility] BUN, CREATININE, CA) CBC WITH DIFF 2020-12-15 12:01:00 Paul Bean [facility] POCT GLUCOSE (AUTOMATED) 2020-12-15 03:57:00 Harrison, Premal G Uni versity of [facility] POCT GLUCOSE (AUTOMATED) 2020-12-14 23:31:00 Harrison, Premal G Uni versity of [facility] POCT GLUCOSE (AUTOMATED) 2020-12-14 19:08:00 Harrison, Premal G Uni versity of [facility] POCT GLUCOSE (AUTOMATED) 2020-12-14 15:11:00 Harrison, Premal G Uni versity of [facility] POCT GLUCOSE (AUTOMATED) 2020-12-14 02:36:00 Harrison, Premal G Uni versity of [facility] POCT GLUCOSE (AUTOMATED) 2020-12-13 23:32:00 Harrison, Premal G Uni versity of [facility] POCT GLUCOSE (AUTOMATED) 2020-12-13 18:08:00 Harrison, Premal G Uni versity of [facility] BASIC METABOLIC PANEL 2020-12-13 15:39:00 Paul Bean [facility] (NA, K, CL, CO2, GLUCOSE, [facility] BUN, CREATININE, CA) CBC WITH DIFF 2020-12-13 15:39:00 Paul Bean [facility] POCT GLUCOSE (AUTOMATED) 2020-12-13 14:06:00 Harrison, Premal G Uni versity of [facility] POCT GLUCOSE (AUTOMATED) 2020-12-13 03:07:00 Harrison, Premal G Uni versity of [facility] POCT GLUCOSE (AUTOMATED) 2020-12-12 23:52:00 Harrison, Premal G Uni versity of [facility] POCT GLUCOSE (AUTOMATED) 2020-12-12 20:28:00 Harrison, Premal G Uni versity of [facility] POCT GLUCOSE (AUTOMATED) 2020-12-12 19:14:00 Harrison, Premal G Uni versity of [facility] POCT GLUCOSE (AUTOMATED) 2020-12-12 14:33:00 Harrison, Premal G Uni versity of [facility] MAGNESIUM 2020-12-12 08:58:00 Paul Bean [facility] BASIC METABOLIC PANEL 2020-12-12 08:58:00 Paul Bean [facility] (NA, K, CL, CO2, GLUCOSE, [facility] BUN, CREATININE, CA) CBC WITH DIFF 2020-12-12 08:58:00 Paul Bean [facility] US ABDOMEN LIMITED 2020-12-12 06:32:26 Paul Bean [facility] POCT GLUCOSE (AUTOMATED) 2020-12-12 03:40:00 Harrison, Premal G Uni versity of [facility] POCT GLUCOSE (AUTOMATED) 2020-12-12 00:06:00 Harrison, Premal G Uni versity of [facility] XR HIPS 3 VW LEFT 2020-12-11 20:20:[address] [facility] HB ECG ROUTINE & RHYTHM 2020-12-11 20:04:06 Demetrius [facility] STRIP [facility] VITAMIN B6, PLASMA 2020-12-11 19:17:00 [facility] POCT GLUCOSE (AUTOMATED) 2020-12-11 19:06:00 Vika Harrison [facility] CREATINE KINASE 2020-12-11 18:22:[address] [facility] VITAMIN B12, LEVEL 2020-12-11 18:22:00 Vikas [facility] FOLATE 2020-12-11 18:22:00 [facility] THYROID STIMULATING 2020-12-11 18:22:00 Demetrius [facility] HORMONE [facility] PROCALCITONIN 2020-12-11 18:22:00 Vikas [facility] VITAMIN B1 (THIAMINE), 2020-12-11 18:22[facility]OD [facility] CT HEAD WO CONTRAST 2020-12-11 14:07:35 Sweetie Stout [facility] URINALYSIS 2020-12-11 13:44:[address] [facility] URINE CULTURE 2020-12-11 13:44:[address] [facility] COVID-19 (ID NOW RAPID 2020-12-11 12:31:00 Paco Lacey [facility] TESTING) Medical Branch LAB ONLY COVID 2020-12-11 12:31:00 Singer [facility] INTERPRETATION [facility] XR CHEST 1 VW 2020-12-11 12:07:[address] [facility] BLOOD CULTURE SCREEN 2020-12-11 12:02:00 Paco Lacey [facility] MAGNESIUM 2020-12-11 12:02:00 Vikas [facility] FERRITIN SERUM 2020-12-11 12:02:00 Paul Bean [facility] Kaley [facility] COMP. METABOLIC PANEL 2020-12-11 12:02:00 Singer [facility] ([id number]) [facility] CBC WITH DIFF 2020-12-11 12:02:[address] [facility] LACTIC ACID WHOLE BLOOD 2020-12-11 12:02:00 Singer Paco [facility] BLOOD CULTURE SCREEN 2020-12-11 11:42:00 Singer Paco [facility] EMERGENCY SERVICES 2020-12-11 06:01:00 Doctor Unassigned, [facility] AGREEMENTS AND [facility] AUTHORIZATIONS HOSPITAL ADMISSION 2020-12-11 06:01:00 Doctor Unaowen, [facility] Name Medical [facility] HOME HEALTH - OTHER 2020-11-11 06:01:00 Doctor Tabitha [facility] Name Medical [facility] HOME HEALTH - OTHER 2020-10-30 06:01:00 Doctor Unaowen [facility] Name Medical [facility] EXTERNAL PROVIDER RECORDS 2020-09-01 06:01:00 Doctor Tabitha, [facility] Name [facility] POCT GLUCOSE (AUTOMATED) 2020-08-23 18:09:00 Kelly Washington [facility] POCT GLUCOSE (AUTOMATED) 2020-08-23 14:14:00 Kelly Washington [facility] MAGNESIUM 2020-08-23 11:18:00 Ramya [facility] BASIC METABOLIC PANEL 2020-08-23 11:18:00 [place] [facility] (NA, K, CL, CO2, GLUCOSE, Medica l Branch BUN, CREATININE, CA) CBC WITH DIFF 2020-08-23 11:18:00 [place] [facility] POCT GLUCOSE (AUTOMATED) 2020-08-23 10:21:00 Kelly Washington [facility] POCT GLUCOSE (AUTOMATED) 2020-08-23 05:55:00 Kelly Washington [facility] POCT GLUCOSE (AUTOMATED) 2020-08-23 03:00:00 Stefania [facility] PO[facility]SE (AUTOMATED) 2020-08-22 23:38:00 Bety Washingtonmarie Elias versity of [facility] POCT GLUCOSE (AUTOMATED) 2020-08-22 19:04:00 Bety Washingtonmarie [facility] POCT GLUCOSE (AUTOMATED) 2020-08-22 13:49:00 Kelly Washington Jada versity [facility] MAGNESIUM 2020-08-22 10:10:00 [facility] 2020-08-22 10:10:00 Aguila Melchor [facility] ([id number]) (ALB,T.PRO,BILI Medical Branch T,BU/BC,ALT,AST,ALK PHOS) BASIC METABOLIC PANEL 2020-08-22 10:10:00 [facility] (NA, K, CL, CO2, GLUCOSE, Medica l Branch BUN, CREATININE, CA) LIPID PANEL ([id number])(TOTAL 2020-08-22 10:10:00 [place], [facility] CHOLESTEROL, Medical [facility] TRIGLYCERIDES, HDL) CBC WITH DIFF 2020-08-22 10:10:00 [facility] POCT GLUCOSE (AUTOMATED) 2020-08-22 10:10:00 Bety Washingtonmarie Elias [facility] POCT GLUCOSE (AUTOMATED) 2020-08-22 07:13:00 Kelly Washington Jada versity [facility] POCT GLUCOSE (AUTOMATED) 2020-08-22 02:24:00 Bety Washingtonmarie Elias versity [facility] POCT GLUCOSE (AUTOMATED) 2020-08-21 23:40:00 Kelly Washington Jada versity of [facility] POCT GLUCOSE (AUTOMATED) 2020-08-21 18:10:00 Kelly Washington Jada versity [facility] POCT GLUCOSE (AUTOMATED) 2020-08-21 13:39:00 Kelly Washington Jada versity [facility] ETHANOL 2020-08-21 12:35:00 [facility] 2020-08-21 12:35:00 Stefania [facility] GALV ONLY - SYPHILIS 2020-08-21 12:35:00 Stefania [facility] IGG/IGM [facility] Er LACTATE DEHYDROGENASE 2020-08-21 10:09:00 Ramya, [facility] GALV/CLC ONLY - URINE 2020-08-21 10:09:00 Richie [facility] DRUG (IMMUNOASSAY) - 4 ER Medica l Branch PANEL URINALYSIS 2020-08-21 10:09:00 Ramya, [facility] URINE CULTURE 2020-08-21 10:09:00 Ramya, [facility] PROCALCITONIN 2020-08-21 10:09:00 [place], [facility] POCT GLUCOSE (AUTOMATED) 2020-08-21 09:41:00 Stefania Kelly [facility] PROTHROMBIN TIME / INR 2020-08-21 08:32:00 [place], [facility] ACTIVATED PARTIAL 2020-08-21 08:32:00 [place], [facility] C-REACTIVE PROTEIN 2020-08-21 08:31:00 Ramya, [facility] HEPATIC FUNCTION PANEL 2020-08-21 08:31:00 [place], [facility] ([id number]) (ALB,T.PRO,BILI Medical Branch T,BU/BC,ALT,AST,ALK PHOS) BASIC METABOLIC PANEL 2020-08-21 08:31:00 [place], [facility] (NA, K, CL, CO2, GLUCOSE, [facility] BUN, CREATININE, CA) SEDIMENTATION RATE 2020-08-21 08:31:00 [place], [facility] CBC WITH DIFF 2020-08-21 08:31:00 [place], [facility] GLYCOSYLATED HEMOGLOBIN 2020-08-21 08:31:00 [place], [facility] (A1C) Medical Branch HIV 1/2 AG-AB WITH REFLEX 2020-08-21 08:31:00 Kelly [place] [facility] [place] [facility] COVID-[facility] (ID NOW RAPID 2020-08-21 08:20:00 [facility]aily [facility] TESTING) Medical Branch LAB ONLY COVID 2020-08-21 08:20:00 [place] [facility] [place] INTERPRETATION [facility] Encounters Start End Encounter Admission Attending Care Care Encounter Source Date/Time Date/Time Type Type Clinicians Facility Department ID 2020-08-21 Inpatient U ST[facility]ANIA [facility] [id number] Univers 01:07:00 KELLY brandenana [facility] 2021-08-22 2021-08-22 [facility] [id number] Univers 06:21:00 08:02:00 SWEETIE cantu [facility] 2021-08-22 2021-08-22 Emergency [facility] [id number] Univers 06:21:00 08:02:00 Sweetie LOTT [id number] i ty [place] [id number] [place] 084 Branch 2021-08-09 2021-08-[address] [facility] [id number] [facility] 10:27:03 10:27:03 ADRIANA lopez of Medicin e 2020-12-28 2020-12-28 Telephone [facility] 1.2.840.114 [id number] 00:00:00 00:00:00 Calvin H PRIMARY [id number] CARE 4.2.7.2.686 PAVILLION [id number] 220 2020-12-28 2020-12-28 [facility]phone [facility] 1.2.840.114 [id number] Univers 00:00:00 00:00:00 Calvin H PRIMARY [id number] it y of [place]2.[place] [id number] [place] 220 Branch 2020-12-19 2020-12-19 Transition Tuan Peters 1.2.840.114 [id number] 00:00:00 00:00:00 of Care Ruchi Braswell [id number] [place] 4.2.7.2.686 [id number] 2020-12-19 2020-12-19 Transition Tuan Peters 1.2.840.114 [id number] Univers 00:00:00 00:00:00 of Care Ruchi Braswell [id number] it y of [place]2.[place] [id number] [place] 403 Branch 2020-12-11 2020-12-17 [facility] Paco Lacey 1.2.840.1 [id number] 05:11:00 16:00:00 Encounter Vika [place] [id number] [facility] 4.2.7.2.686 [id number] [facility] 2020-12-11 2020-12-17 [facility] Paco Lacey 1.2.840.[id number] [facility] 05:11:00 16:00:00 Encounter Vika Harrison [place] [id number] ity [facility] 4.[address] [place] [address] [id number] [place] 096 Branch 2020-12-11 2020-12-[address] [facility] [id number] Univers 05:11:00 16:00:00 pepe [facility] 2020-11-16 2020-11-16 Emergency X [facility] ERT [id number] [facility] 09:31:00 09:31:00 PACO cantu [facility] 2020-11-11 2020-11-11 Orders Doctor CUI 1.2.840.114 [id number] 00:00:00 00:00:00 Only UnassignedMONIQUE 350.1.13.10 [place] [facility] 4.2.7.2.686 [id number] 2020-11-11 2020-11-11 Orders Doctor CUI 1.2.840.[id number] [facility] 00:00:00 00:00:00 Only Unassigned, MONIQUE 350.1.13.10 ity of [place] [facility] 4.2.7.2.686 Jeff as [id number] [address] 2020-11-07 2020-11-07 [facility] [id number] 00:00:00 00:00:00 Angi Lott 350.1.13.10 [place] 4.2.7.2.686 Professio [id number] [address] 2020-11-07 2020-11-07 Telephone [facility] [id number] [facility] 00:00:00 00:00:00 Angi Lott 350.1.13.10 ity of [place]2.[place] Profess[place] [id number] [place] dic[address] 2020-10-30 2020-10-30 Orders Doctor BASILIA 1.2.840.114 [id number] 00:00:00 00:00:00 Only Unassigned, MONIQUE 350.1.13.10 [facility] 4.2.7.2.686 [id number] [facility] 2020-10-30 2020-10-30 Orders Doctor BASILIA 1.2.840.[id number] [facility] 00:00:00 00:00:00 Only Unassigned, MONIQUE 350.1.13.10 ity of [place] [facility] 4.2.7.2.686 Jeff as [id number] [address] 2020-09-26 2020-09-26 Telephone Eliot [facility] 1.2.840.114 [id number] 00:00:00 00:00:00 [facility] 350.1.13.10 CLINICS 4.2.7.2.686 [id number] [facility] 2020-09-26 2020-09-26 Telephone Eliot [facility] 1.2.840.[id number] [facility] 00:00:00 00:00:00 [facility] 350.1.13.10 i ty of CL[place]2.[place] [id number] [address] 2020-09-01 2020-09-01 Orders Doctor BASILIA 1.2.840.114 [id number] 00:00:00 00:00:00 Only Unassigned, MONIQUE 350.1.13.10 [place] [facility] 4.2.7.2.686 [id number] 2020-09-01 2020-09-01 Orders Doctor BASILIA 1.2.840.114 [id number] Univers 00:00:00 00:00:00 Only Unassigned, MONIQUE 350.1.13.10 ity of [place] [facility] 4.2.7.2.686 Jeff as [id number] [place] 009 Branch 2020-08-25 2020-08-25 Transition Tuan Peters 1.2.840.114 [id number] 00:00:00 00:00:00 of Care Ruchi Braswell 350.1.13.10 [place] 4.2.7.2.686 [id number] 403 2020-08-25 2020-08-25 Transition Tuan Peters 1.2.840.114 [id number] Univers 00:00:00 00:00:00 of Care Ruchi Braswell 350.1.13.10 it y of [place].2.[place] [id number] [place] 403 [facility] 2020-08-21 2020-08-23 [facility] Ayleen 1.2.840.114 [id number] 01:07:00 18:35:00 Encounter Kelly Monique 350.1.13.10 [facility] 4.2.7.2.686 [id number] [facility] 2020-08-21 2020-08-23 [facility] 1. 2.840.[id number] [facility] 01:07:00 18:35:00 Encounter Mukul Gallardo 350.1.13. 10 ity of [facility] 4.2.7.2.686 Jeff as [id number] [address] Results Test Description Test Time Test Comments Results Result Comments Source POCT GLUCOSE (AUTOMATED) 2020-12-17 15:43:35 Test Item Value Reference Range Interpretation Comme nts POCT GLU (test code = 7295037956) 129 mg/dL 70-110 H Lab Interpretation (test code = 79742-2) Abnormal [facility] (NA, K, CL, CO2, GLUCOSE, BUN, CREATININE, CA)2020-12-17 11:45:07 Test Item Value Reference Range Interpretation Comments NA (test code = 137 mmol/L 135-145 2777196202) K (test code = 3.5 mmol/L 3.5-5.0 7211131867) CL (test code = 103 mmol/L 98-108 4461084016) CO2 TOTAL (test code = 26 mmol/L 23-31 6632318471) AGAP (test code = 2-16 3657859364) BUN (test code = 11 mg/dL 7-23 2086364861) GLUCOSE (test code = 175 mg/dL 70-110 H 1028605914) CREATININE (test code = 0.62 mg/dL 0.60-1.25 0028127931) CALCIUM (test code = 9.0 mg/dL 8.6-10.6 6268618058) eGFR Calculation mL/min/1.73m2 (Non-) (test code = 0254967333) eGFR Calculation mL/min/1.73m2 () (test code = 7891914761) JAMES (test code = JAMES) Association of [...] tests). Lab Interpretation Abnormal (test code = 76607-6) [facility] WITH [id number] 11:07:27 Test Item Value Reference Range Interpretation [...] RDW-SD (test code = 45.2 fL 38.5-51.6 78043-8) RDW-CV (test code = 16.9 % 12.1-15.4 H 788-0) PLT (test code = See_Comment H [Automated 777-3) message] The sy stem which generated this result transmitted reference range : 150 - 328 10*3/ ?L. The reference r torito was not used to interpret this result as normal/abnormal . MPV (test code = 8.1 fL 9.8-13.0 L 83154-7) NRBC/100 WBC (test See_Comment [Automat ed code = 2928153799) message] The system which generated this result transmitted reference range : 0.0 - 10.0 /100 WBCs. The refer ence range was not u sed to interpret th is result as normal/abnormal . NRBC x10^3 (test code <0.01 See_Comment [Auto mated = 1364569628) message] The s ystem which generated this result transmitted reference range : 10*3/?L. The reference range was not used to interpret this result as normal/abnormal . GRAN MAT (NEUT) % 72.8 % (test code = 770-8) IMM GRAN % (test code 0.60 % = 0603046294) LYMPH % (test code = 18.4 % 736-9) MONO % (test code = 5.7 % 5905-5) EOS % (test code = 1.8 % 713-8) BASO % (test code = 0.7 % 706-2) GRAN MAT x10^3(ANC) 8.23 10*3/uL 1.99-6.95 H (test code = 7227009108) IMM GRAN x10^3 (test 0.07 10*3/uL 0.00-0.06 H code = 9872238727) LYMPH x10^3 (test code 2.08 10*3/uL 1.09-3.23 = 731-0) MONO x10^3 (test code 0.65 10*3/uL 0.36-1.02 = 742-7) EOS x10^3 (test code = 0.20 10*3/uL 0.06-0.53 711-2) BASO x10^3 (test code 0.08 10*3/uL 0.01-0.09 = 704-7) Lab Interpretation Abnormal (test code = 24621-6) [facility]17 06:03:38 Test Item Value Reference Range Interpretation Comments POCT GLU (test code = 6398420899) 75 mg/dL 70-110 Lab Interpretation (test code = Normal 48015-2) [facility]6, [id number] 00:01:00 Test Item Value Reference Range Interpretation Comments VIT B6 (test code = 13.1 nmol/L 20.0-125.0 L INTERPRE TIVE 64591-7) INFORMATION: Vi tamin B6 (Pyridoxal 5-Phosphate) Pyridoxal 5'-phosphate me asured in a specimen collected follo wing an 8-hour or overnight fast accurately clara keene vitamin B6 nutritional sta tus. Non-fasting spe cimen concentration reflects recent vitamin intake. This test was develo ped and its perform ance characteristics determined by [facility]. I t has not been cleare d or approved by the [place] Food and Drug Administration. This test was perfor med in a CLIA certifie d laboratory and is intended for cl inical purposes.Perfor med By: [address] [place] [address] [id number] Director: Namrata Klein MD Lab Interpretation Abnormal (test code = 48581-8) [facility]IB[facility] 2 VW [id number] 23:57:09 Tricompartmental knee joint osteoarthrosis.XR TIBIA FIBULA [...] No acute fracture or dislocation.IMPRESSIONTricompartmental knee joint osteoarthrosis.[facility] GLUCOSE (AUTOMATED) 2020-12-16 23:27:00 Test Item Value Reference Range Interpretation Comments POCT GLU (test code = 0550558358) 114 mg/dL 70-110 H Lab Interpretation (test code = Abnormal 78399-5) [facility] GLUCOSE (AUTOMATED)2020-12-16 20:12:00 Test Item Value Reference Range Interpretation Comments POCT GLU (test code = 9247669554) 105 mg/dL 70-110 Lab Interpretation (test code = Normal 66877-2) [facility] GLUCOSE (AUTOMATED)2020-12-16 14:44:00 Test Item Value Reference Range Interpretation Comments POCT GLU (test code = 8644003757) 153 mg/dL 70-110 H Lab Interpretation (test code = Abnormal 91262-8) [facility] METABOLIC PANEL (NA, K, CL, CO2, GLUCOSE, BUN, CREATININE, CA)2020-12-16 14:23:00 Test Item Value Reference Range Interpretation Comments NA (test code = 138 mmol/L 135-145 5704636655) K (test code = 3.4 mmol/L 3.5-5.0 L 2153969333) CL (test code = 100 mmol/L 98-108 9415834501) CO2 TOTAL (test code = 31 mmol/L 23-31 6725287958) AGAP (test code = 2-16 5786410285) BUN (test code = 11 mg/dL 7-23 1192145259) GLUCOSE (test code = 162 mg/dL 70-110 H 5676315450) CREATININE (test code = 0.64 mg/dL 0.60-1.25 3707560142) CALCIUM (test code = 8.9 mg/dL 8.6-10.6 1207257360) eGFR Calculation mL/min/1.73m2 (Non-) (test code = 3252729530) eGFR Calculation mL/min/1.73m2 () (test code = 8221954135) JAMES (test code = JAMES) Association of [...] tests). Lab Interpretation Abnormal (test code = 06300-6) [facility] WITH [id number] 14:05:00 Test Item Value Reference Range Interpretation [...] RDW-SD (test code = 45.4 fL 38.5-51.6 27997-7) RDW-CV (test code = 17.0 % 12.1-15.4 H 788-0) PLT (test code = See_Comment H [Automated 777-3) message] The sy stem which generated this result transmitted reference range : 150 - 328 10*3/ ?L. The reference r torito was not used to interpret this result as normal/abnormal . MPV (test code = 8.0 fL 9.8-13.0 L 89052-1) NRBC/100 WBC (test See_Comment [Automat ed code = 2595679392) message] The system which generated this result transmitted reference range : 0.0 - 10.0 /100 WBCs. The refer ence range was not u sed to interpret th is result as normal/abnormal . NRBC x10^3 (test code <0.01 See_Comment [Auto mated = 9992311896) message] The s ystem which generated this result transmitted reference range : 10*3/?L. The reference range was not used to interpret this result as normal/abnormal . GRAN MAT (NEUT) % 70.0 % (test code = 770-8) IMM GRAN % (test code 0.70 % = 4201458369) LYMPH % (test code = 20.5 % 736-9) MONO % (test code = 7.1 % 5905-5) EOS % (test code = 1.0 % 713-8) BASO % (test code = 0.7 % 706-2) GRAN MAT x10^3(ANC) 9.44 10*3/uL 1.99-6.95 H (test code = 4899490290) IMM GRAN x10^3 (test 0.09 10*3/uL 0.00-0.06 H code = 9317387802) LYMPH x10^3 (test code 2.76 10*3/uL 1.09-3.23 = 731-0) MONO x10^3 (test code 0.96 10*3/uL 0.36-1.02 = 742-7) EOS x10^3 (test code = 0.13 10*3/uL 0.06-0.53 711-2) BASO x10^3 (test code 0.10 10*3/uL 0.01-0.09 H = 704-7) Lab Interpretation Abnormal (test code = 00095-2) [facility] # [id number] 13:01:00 Test Item Value Reference Range Interpretation Comments Blood Culture-Aerobic No organisms No growth Previo us (test code = 69768-7) isolated prelim inary verified result was Culture In Progress on 12/11/2020 at 100 1 CSTPrevious preliminary verified result was No growth a t 24 hours on 12/12/2020 at 070 1 CSTPrevious preliminary verified result was No growth a t 48 hours on 12/13/2020 at 070 1 CSTPrevious preliminary verified result was No growth a t 72 hours on 12/14/2020 at 070 1 TUBE HEATER Blood No organisms No growth Previous Culture-Anaerobic isolated preliminar y (test code = 16659-1) verifi ed result was Culture In Progress on 12/11/2020 at 100 1 CSTPrevious preliminary verified result was No growth a t 24 hours on 12/12/2020 at 070 1 CSTPrevious preliminary verified result was No growth a t 48 hours on 12/13/2020 at 070 1 CSTPrevious preliminary verified result was No growth a t 72 hours on 12/14/2020 at 070 1 TUBE HEATER Lab Interpretation Normal (test code = 34350-2) [facility] Culture - Peripheral # [id number] 13:01:00 Test Item Value Reference Range Interpretation Comments Blood Culture-Aerobic No organisms No growth Previo us (test code = 99318-2) isolated prelim inary verified result was Culture In Progress on 12/11/2020 at 100 1 CSTPrevious preliminary verified result was No growth a t 24 hours on 12/12/2020 at 070 1 CSTPrevious preliminary verified result was No growth a t 48 hours on 12/13/2020 at 070 1 CSTPrevious preliminary verified result was No growth a t 72 hours on 12/14/2020 at 070 1 TUBE HEATER Blood No organisms No growth Previous Culture-Anaerobic isolated preliminar y (test code = 78109-2) verifi ed result was Culture In Progress on 12/11/2020 at 100 1 CSTPrevious preliminary verified result was No growth a t 24 hours on 12/12/2020 at 070 1 CSTPrevious preliminary verified result was No growth a t 48 hours on 12/13/2020 at 070 1 CSTPrevious preliminary verified result was No growth a t 72 hours on 12/14/2020 at 070 1 TUBE HEATER Lab Interpretation Normal (test code = 38527-7) [facility] GLUCOSE (AUTOMATED)2020-12-16 04:01:00 Test Item Value Reference Range Interpretation Comments POCT GLU (test code = 2075726412) 156 mg/dL 70-110 H Lab Interpretation (test code = Abnormal 45134-7) [facility]2020-12-16 00:24:00 Test Item Value Reference Range Interpretation Comments POCT GLU (test code = 9093978081) 115 mg/dL 70-110 H Lab Interpretation (test code = Abnormal 27925-6) [facility] CHEST PULMONARY [id number] 23:34:55No pulmonary emboli. No interval change in [...] stableappearance of intra and extrahepatic biliary ductal dilatation.[facility] GLUCOSE (AUTOMATED)2020-12-15 19:28:00 Test Item Value Reference Range Interpretation Comments POCT GLU (test code = 3709265868) 140 mg/dL 70-110 H Lab Interpretation (test code = Abnormal 20118-2) [facility] 15:26:00 Test Item Value Reference Range Interpretation Comments MAGNESIUM (test code = 0199928197) 2.2 mg/dL 1.7-2.4 Lab Interpretation (test code = Normal 44894-8) [facility] GLUCOSE (AUTOMATED)2020-12-15 15:15:00 Test Item Value Reference Range Interpretation Comments POCT GLU (test code = 0180094915) 181 mg/dL 70-110 H Lab Interpretation (test code = Abnormal 07015-6) [facility] METABOLIC PANEL (NA, K, CL, CO2, GLUCOSE, BUN, CREATININE, CA)2020-12-15 13:07:00 Test Item Value Reference Range Interpretation Comments NA (test code = 136 mmol/L 135-145 0417004852) K (test code = 3.6 mmol/L 3.5-5.0 2022871243) CL (test code = 96 mmol/L 98-108 L 0211196983) CO2 TOTAL (test code = 29 mmol/L 23-31 7513789855) AGAP (test code = 2-16 2929646198) BUN (test code = 12 mg/dL 7-23 8758760998) GLUCOSE (test code = 183 mg/dL 70-110 H 5397013855) CREATININE (test code = 0.70 mg/dL 0.60-1.25 7096872753) CALCIUM (test code = 9.2 mg/dL 8.6-10.6 9795225854) eGFR Calculation mL/min/1.73m2 (Non-) (test code = 4815326255) eGFR Calculation mL/min/1.73m2 () (test code = 5847919634) JAMES (test code = JAMES) Association of [...] tests). Lab Interpretation Abnormal (test code = 33829-4) [facility] WITH [id number] 12:32:00 Test Item Value Reference Range Interpretation Comments WBC (test code = See_Comment H [Automated 2690-2) message] The system which generated this result [...] RDW-SD (test code = 44.4 fL 38.5-51.6 84186-9) RDW-CV (test code = 17.7 % 12.1-15.4 H 788-0) PLT (test code = See_Comment H [Automated 777-3) message] The system which generated this result transmit ronan reference range : 150 - 328 10*3/ ?L. The reference range was not u sed to interpret th is result as normal/abnormal . MPV (test code = 8.1 fL 9.8-13.0 L 24618-1) NRBC/100 WBC (test See_Comment [Automat ed code = 7990245913) message] The system which generated this result transmit ronan reference range : 0.0 - 10.0 /100 WBCs. The reference range was not used to interpret this result as normal/abnormal . NRBC x10^3 (test code <0.01 See_Comment [Auto mated = 3252953478) message] The system which generated this result transmit ronan reference range : 10*3/?L. The reference range was not used to interpret this result as normal/abnormal . GRAN MAT (NEUT) % 74.5 % (test code = 770-8) IMM GRAN % (test code 0.70 % = 5658848075) LYMPH % (test code = 17.4 % 736-9) MONO % (test code = 6.8 % 5905-5) EOS % (test code = 0.2 % 713-8) BASO % (test code = 0.4 % 706-2) GRAN MAT x10^3(ANC) 11.99 10*3/uL 1.99-6.95 H (test code = 1745651224) IMM GRAN x10^3 (test 0.11 10*3/uL 0.00-0.06 H code = 8136366900) LYMPH x10^3 (test code 2.80 10*3/uL 1.09-3.23 = 731-0) MONO x10^3 (test code 1.10 10*3/uL 0.36-1.02 H = 742-7) EOS x10^3 (test code = 0.03 10*3/uL 0.06-0.53 L 711-2) BASO x10^3 (test code 0.06 10*3/uL 0.01-0.09 = 704-7) Lab Interpretation Abnormal (test code = 65586-6) [facility] GLUCOSE (AUTOMATED)2020-12-15 04:16:00 Test Item Value Reference Range Interpretation Comments POCT GLU (test code = 6534945646) 200 mg/dL 70-110 H Lab Interpretation (test code = Abnormal 42922-4) [facility] (THIAMINE), WHOLE [id number] 00:30:00 Test Item Value Reference Range Interpretation Comments Vitamin B1, Whole 136 nmol/L 70-180 INTERPRETI VE INFORMATION: Blood (test code = Vitamin B 1, Whole Blood 04658-6) This assay júnior ures the concentration o f thiamine diphosphate (TD P), the primary active form of vitamin B1. Nick roximately 90 percent of v itamin B1 present in whol e blood is TDP. Thiamine a nd thiamine monoph osphate, which comprise the remaining 10 pe rcent, are not measured. T his test was developed a nd its performance characteristics determined by [facility]. I t has not been cleared or approved by the [place] Food and Drug Administration. This test was performed i n a CLIA certified labor atory and is intended for clinical purposes.Perfor med By: [facility] [address] [place], [place] [address]Q aboratory Director: Namrata Klein MD [facility] GLUCOSE (AUTOMATED)2020-12-14 23:35:00 Test Item Value Reference Range Interpretation Comments POCT GLU (test code = 1633207364) 151 mg/dL 70-110 H Lab Interpretation (test code = Abnormal 16425-5) [facility] GLUCOSE (AUTOMATED)2020-12-14 19:19:00 Test Item Value Reference Range Interpretation Comments POCT GLU (test code = 1187451083) 193 mg/dL 70-110 H Lab Interpretation (test code = Abnormal 05334-3) [facility] GLUCOSE (AUTOMATED)2020-12-14 15:22:00 Test Item Value Reference Range Interpretation Comments POCT GLU (test code = 7293265085) 221 mg/dL 70-110 H Lab Interpretation (test code = Abnormal 23133-1) [facility] GLUCOSE (AUTOMATED)2020-12-14 02:37:00 Test Item Value Reference Range Interpretation Comments POCT GLU (test code = 1031997170) 210 mg/dL 70-110 H Lab Interpretation (test code = Abnormal 79556-3) [facility] GLUCOSE (AUTOMATED)2020-12-13 23:33:00 Test Item Value Reference Range Interpretation Comments POCT GLU (test code = 1011769868) 182 mg/dL 70-110 H Lab Interpretation (test code = Abnormal 31077-3) [facility] GLUCOSE (AUTOMATED)2020-12-13 18:09:00 Test Item Value Reference Range Interpretation Comments POCT GLU (test code = 7891745610) 150 mg/dL 70-110 H Lab Interpretation (test code = Abnormal 57855-7) [facility] METABOLIC PANEL (NA, K, CL, CO2, GLUCOSE, BUN, CREATININE, CA)2020-12-13 16:27:00 Test Item Value Reference Range Interpretation Comments NA (test code = 136 mmol/L 135-145 1556219703) K (test code = 3.7 mmol/L 3.5-5.0 9841063236) CL (test code = 96 mmol/L 98-108 L 7436044471) CO2 TOTAL (test code = 29 mmol/L 23-31 9337408351) AGAP (test code = 2-16 5364445365) BUN (test code = 6 mg/dL 7-23 L 6711698314) GLUCOSE (test code = 212 mg/dL 70-110 H 3974057801) CREATININE (test code = 0.61 mg/dL 0.60-1.25 5556464886) CALCIUM (test code = 9.5 mg/dL 8.6-10.6 2695003448) eGFR Calculation mL/min/1.73m2 (Non-) (test code = 2534246443) eGFR Calculation mL/min/1.73m2 () (test code = 0551612953) JAMES (test code = JAMES) Association of [...] tests). Lab Interpretation Abnormal (test code = 71548-5) [facility] WITH [id number] 16:10:00 Test Item Value Reference Range Interpretation Comments WBC (test code = See_Comment H [Automated 9290-2) message] The sy stem which generated this result transmitted reference range : 4.20 - 10.70 10*3/?L. The reference range was not used to interpret this result as normal/abnormal . RBC (test code = See_Comment H [Automated 229-8) message] The sy stem which [...] RDW-SD (test code = 43.3 fL 38.5-51.6 01843-8) RDW-CV (test code = 16.2 % 12.1-15.4 H 788-0) PLT (test code = See_Comment H [Automated 777-3) message] The sy stem which generated this result transmitted reference range : 150 - 328 10*3/ ?L. The reference r torito was not used to interpret this result as normal/abnormal . MPV (test code = 8.2 fL 9.8-13.0 L 32746-3) NRBC/100 WBC (test See_Comment [Automat ed code = 4795432839) message] The system which generated this result transmitted reference range : 0.0 - 10.0 /100 WBCs. The refer ence range was not u sed to interpret th is result as normal/abnormal . NRBC x10^3 (test code <0.01 See_Comment [Auto mated = 2364922060) message] The s ystem which generated this result transmitted reference range : 10*3/?L. The reference range was not used to interpret this result as normal/abnormal . GRAN MAT (NEUT) % 86.2 % (test code = 770-8) IMM GRAN % (test code 0.70 % = 6665448239) LYMPH % (test code = 10.2 % 736-9) MONO % (test code = 2.5 % 5905-5) EOS % (test code = 0.1 % 713-8) BASO % (test code = 0.3 % 706-2) GRAN MAT x10^3(ANC) 9.61 10*3/uL 1.99-6.95 H (test code = 3318973360) IMM GRAN x10^3 (test 0.08 10*3/uL 0.00-0.06 H code = 2296293436) LYMPH x10^3 (test code 1.14 10*3/uL 1.09-3.23 = 731-0) MONO x10^3 (test code 0.28 10*3/uL 0.36-1.02 L = 742-7) EOS x10^3 (test code = <0.03 0.06-0.53 L 711-2) BASO x10^3 (test code 0.03 10*3/uL 0.01-0.09 = 704-7) Lab Interpretation Abnormal (test code = 44064-8) [facility]13 14:16:00 Test Item Value Reference Range Interpretation Comments POCT GLU (test code = 0680654687) 236 mg/dL 70-110 H Lab Interpretation (test code = Abnormal 46055-6) [facility] COVID [id number] 04:58:00COVID DMT InterpretationInterpretation/Recommendations: Molecular NAAT Tests for [...] COVID-19 testing the patient has had at [facility], including molecular NAAT testing (more commonly known as PCR testing and Rapid ID Now testing) and antibody testing. It does not take into account any testingthat a patient has had outside of the [facility] medical record. [facility] LABORATORY SERVICESCOVID AlhfxbhIOUK-YsR-6 Rapid ID NOW (no units) ? ? Date ? Value ? 12/11/2020 ? Not Detected ? ? ? 11/16/2020 ? Not Detected ? ? ? 08/21/2020 ? Not Detected ? [facility] 2020-12-13 03:11:00 Test Item Value Reference Range Interpretation Comments POCT GLU (test code = 0924260259) 171 mg/dL 70-110 H Lab Interpretation (test code = Abnormal 57211-7) [facility] GLUCOSE (AUTOMATED)2020-12-13 00:00:00 Test Item Value Reference Range Interpretation Comments POCT GLU (test code = 8247186286) 118 mg/dL 70-110 H Lab Interpretation (test code = Abnormal 26960-4) [facility] GLUCOSE (AUTOMATED)2020-12-12 20:29:00 Test Item Value Reference Range Interpretation Comments POCT GLU (test code = 0292346036) 173 mg/dL 70-110 H Lab Interpretation (test code = Abnormal 39855-9) [facility] [id number] 19:56:17 1. ?Hepatic steatosis. However, limited evaluation [...] main portal veinwasevaluated with color Doppler imaging. Application Developer Manager images were obtainedfor the record. COMPARISON: [...] normal where visualized. SPLEEN:No images were obtained. [facility], Radiant Results Inft User - 12/12/2020 1:57 PM CSTEXAM: US ABDOMEN LIMITEDHISTORY: 70 years-old male with RUQ ultrasound to assess for common bileduct dilation .TECHNIQUE: Limited abdominal ultrasound focused on the liver, biliarysystem, pancreas, and spleen was performed. The main portal vein wasevaluated with color Doppler imaging. Application Developer Manager images wereobtainedfor the record.COMPARISON: Ultrasound abdomen [...] reviewed this study and agree with the abovereport.[facility]2020-12-12 19:24:00 Test Item Value Reference Range Interpretation Comments POCT GLU (test code = 2009025223) 230 mg/dL 70-110 H Lab Interpretation (test code = Abnormal 55002-9) [facility] CHEST 1 [id number] 15:16:46 Low lung volumes with mild perihilar [...] reviewed this study and agree with theabove report.[facility]2020-12-12 14:34:00 Test Item Value Reference Range Interpretation Comments POCT GLU (test code = 4589409158) 225 mg/dL 70-110 H Lab Interpretation (test code = Abnormal 52195-3) [facility] HospitalURINE [id number] 13:28:00 Test Item Value Reference Range Interpretation Comments URINE CULTURE (test < 10,000 CFU/mL mixed code = 630-4) aerobic organisms - suggests endogenous microbial contamination [facility] (NA, K, CL, CO2, GLUCOSE, BUN, CREATININE, CA)2020-12-12 10:05:00 Test Item Value Reference Range Interpretation Comments NA (test code = 136 mmol/L 135-145 0443626102) K (test code = 3.5 mmol/L 3.5-5.0 2973595495) CL (test code = 100 mmol/L 98-108 0046576148) CO2 TOTAL (test code = 31 mmol/L 23-31 5463230881) AGAP (test code = 2-16 4432162607) BUN (test code = 7 mg/dL 7-23 5173639806) GLUCOSE (test code = 259 mg/dL 70-110 H 1453912301) CREATININE (test code = 0.63 mg/dL 0.60-1.25 6668117703) CALCIUM (test code = 8.5 mg/dL 8.6-10.6 L 8129268185) eGFR Calculation mL/min/1.73m2 (Non-) (test code = 6338549593) eGFR Calculation mL/min/1.73m2 () (test code = 1778318116) JAMES (test code = JAMES) Association of [...] tests). Lab Interpretation Abnormal (test code = 68497-9) [facility] HospitalMagnesium [id number] 10:05:00 Test Item Value Reference Range Interpretation Comments MAGNESIUM (test code = 9542084603) 1.9 mg/dL 1.7-2.4 Lab Interpretation (test code = Normal 63269-0) [facility] with [id number] 09:48:00 Test Item Value Reference Range Interpretation Comments WBC (test code = See_Comment [Automated 8631-2) message] The sy stem which generated this result transmitted reference range : 4.20 - 10.70 10*3/?L. The reference range was not used to interpret this result as normal/abnormal . RBC (test code = See_Comment [Automated 457-4) message] The sy stem which generated this [...] RDW-SD (test code = 46.0 fL 38.5-51.6 18510-8) RDW-CV (test code = 16.1 % 12.1-15.4 H 788-0) PLT (test code = See_Comment H [Automated 777-3) message] The sy stem which generated this result transmitted reference range : 150 - 328 10*3/ ?L. The reference r torito was not used to interpret this result as normal/abnormal . MPV (test code = 8.6 fL 9.8-13.0 L 29256-4) NRBC/100 WBC (test See_Comment [Automat ed code = 6749186379) message] The system which generated this result transmitted reference range : 0.0 - 10.0 /100 WBCs. The refer ence range was not u sed to interpret th is result as normal/abnormal . NRBC x10^3 (test code <0.01 See_Comment [Auto mated = 4044531657) message] The s ystem which generated this result transmitted reference range : 10*3/?L. The reference range was not used to interpret this result as normal/abnormal . GRAN MAT (NEUT) % 70.2 % (test code = 770-8) IMM GRAN % (test code 0.30 % = 1891837742) LYMPH % (test code = 18.8 % 736-9) MONO % (test code = 5.0 % 5905-5) EOS % (test code = 5.2 % 713-8) BASO % (test code = 0.5 % 706-2) GRAN MAT x10^3(ANC) 6.05 10*3/uL 1.99-6.95 (test code = 2791136462) IMM GRAN x10^3 (test 0.03 10*3/uL 0.00-0.06 code = 5765788852) LYMPH x10^3 (test code 1.62 10*3/uL 1.09-3.23 = 731-0) MONO x10^3 (test code 0.43 10*3/uL 0.36-1.02 = 742-7) EOS x10^3 (test code = 0.45 10*3/uL 0.06-0.53 711-2) BASO x10^3 (test code 0.04 10*3/uL 0.01-0.09 = 704-7) Lab Interpretation Abnormal (test code = 29036-5) [facility]2020-12-12 03:42:00 Test Item Value Reference Range Interpretation Comments POCT GLU (test code = 196 mg/dL 70-110 H Notifi ed Provider 3980328054) Lab Interpretation (test Abnormal code = 65632-0) [facility] 02:24:00 Test Item Value Reference Range Interpretation Comments FOLATE SER (test code = 6132793835) 5.8 ng/mL 3.0-20.0 Lab Interpretation (test code = Normal 88767-5) [facility] HospitalVITAMIN B12, [id number] 00:55:00 Test Item Value Reference Range Interpretation Comments VIT B12 (test code = 844 pg/mL 240-930 7465095251) JAMES (test code = JAMES) Biotin has been reported to cause a positive bias, interpret results relative to patient's use of biotin. Lab Interpretation (test Normal code = 51709-7) [facility] GLUCOSE (AUTOMATED)2020-12-12 00:14:00 Test Item Value Reference Range Interpretation Comments POCT GLU (test code = 0764819908) 164 mg/dL 70-110 H Lab Interpretation (test code = Abnormal 79732-6) [facility] HospitalCREATINE [id number] 23:42:00 Test Item Value Reference Range Interpretation Comments CK (test code = 8352470766) <20 33-194 L Lab Interpretation (test code = Abnormal 49227-3) [facility] HospitalTHYROID STIMULATING [id number] 23:17:00 Test Item Value Reference Range Interpretation Comments TSH (test code = See_Comment Biotin has been 6603084019) reported to cau se a negative bias, interpret resul ts relative to johnny bills's use of biotin. [Automated mess age] The system [employer] generated this result transmitted ref erence range: 0.45 - 4 .70 mIU/L. The refe rence range was not u sed to interpret this result as normal/abnor mal. Lab Interpretation (test Normal code = 95107-1) [facility]XR HIPS 3 VW [id number] 21:41:53No appreciable fracture lines. RL: 6200 ICAL [...] No osseous erosions.IMPRESSIONNo appreciable fracture lines.RL: 6200 [facility]PROCAL[facility]IN[facility]21-[facility]-01 20:00:00 Test Item Value Reference Range Interpretation Comments Procalcitonin (test 0.13 ng/mL <0.07 H code = 9684367276) JAMES (test code = JAMES) INTERPRETATION OF [...] lung abscess/empyema. For further information please refer to:[email or web address] Lab Interpretation Abnormal (test code = 93536-3) [facility]2020-12-11 19:07:00 Test Item Value Reference Range Interpretation Comments POCT GLU (test code = 5577633349) 274 mg/dL 70-110 H Lab Interpretation (test code = Abnormal 94202-8) [facility]UM2021-[facility]-01 18:31:00 Test Item Value Reference Range Interpretation Comments MAGNESIUM (test code = 8490004910) 1.9 mg/dL 1.7-2.4 Lab Interpretation (test code = Normal 47617-2) [facility] [id number] 18:31:00 Test Item Value Reference Range Interpretation Comments FERRITIN (test code = 178.0 ng/mL 18.0-464.0 8837302216) JAMES (test code = JAMES) Biotin has been reported to cause a negative bias, interpret results relative to patient's use of biotin. Lab Interpretation (test Normal code = 37118-1) [facility] HEAD WO [id number] 14:36:47 No acute intracranial abnormality. Dilated ventricles [...] reviewed this study and agree with the abovereport.[facility]IS[facility] 14:28:00 Test Item Value Reference Range Interpretation Comments APPEARANCE (test code = Clear Clear 7114309691) COLOR (test code = Yellow Yellow 1925617049) PH (test code = 4.8-8.0 1033781032) SP GRAVITY (test code = 1.003-1.030 9334609556) GLU U QUAL (test code = 500 mg/dL Normal A 7965411906) BLOOD (test code = Negative Negative 6563545572) KETONES (test code = 5 mg/dL Negative A 7684164052) PROTEIN (test code = Negative Negative 2887-8) UROBILIN (test code = Normal Normal 8515385735) BILIRUBIN (test code = Negative Negative 8964135139) NITRITE (test code = Negative Negative 5782228746) LEUK RYAN (test code = Negative Negative 5607228972) RBC/HPF (test code = See_Comment [Autom ated message] 8863905372) The system [employer] generated this result transmit ronan reference range : 0 - 3 HPF. The refe rence range was not u sed to interpret th is result as normal/abnormal . WBC/HPF (test code = See_Comment [Autom ated message] 9057476826) The system [employer] generated this result transmit ronan reference range : 0 - 5 HPF. The refe rence range was not u sed to interpret th is result as normal/abnormal . BACTERIA (test code = Negative Negative 6725749927) MUCOUS (test code = Slight Negative LPF A 2508050089) SQ EPITH (test code = HPF 7422930107) Lab Interpretation (test Abnormal code = 38667-3) [facility] ([facility] NOW RAPID TESTING)2020-12-11 13:10:00 Test Item Value Reference Range Interpretation Comments SARS-CoV-2 Rapid ID NOW Not Detected Not Detected (test code = 90043-3) JAMES (test code = JAMES) ID NOW COVID-19 Assay is an isothermal nucleic acid amplification test intended for the qualitative detection of nucleic acid from SARS-CoV-2 viral RNA in nasopharyngeal (NECKTIE TURNER) specimens. It is used under Emergency Use [...] indicated. Lab Interpretation Normal (test code = 89562-5) [facility]. METABOLIC PANEL (32138)2020-12-11 12:29:00 Test Item Value Reference Range Interpretation Comments NA (test code = 136 mmol/L 135-145 4485114372) K (test code = 3.5 mmol/L 3.5-5.0 8675076445) CL (test code = 95 mmol/L 98-108 L 5947747049) CO2 TOTAL (test code = 35 mmol/L 23-31 H 7167674608) AGAP (test code = 2-16 7705500416) BUN (test code = 9 mg/dL 7-23 5909469472) GLUCOSE (test code = 329 mg/dL 70-110 H 6496251894) CREATININE (test code = 0.72 mg/dL 0.60-1.25 3284590528) TOTAL BILI (test code = 0.6 mg/dL 0.1-1.2 4935894160) CALCIUM (test code = 9.0 mg/dL 8.6-10.6 7081437817) T PROTEIN (test code = 6.8 g/dL 6.3-8.2 0343729854) ALBUMIN (test code = 3.8 g/dL 3.5-5.0 8207284799) ALK PHOS (test code = 288 U/L 34-122 H 5235871267) ALTv (test code = 46 U/L 5-50 1742-6) AST(SGOT) (test code = 38 U/L 13-40 4524453551) eGFR Calculation mL/min/1.73m2 (Non-) (test code = 1661207480) eGFR Calculation mL/min/1.73m2 () (test code = 9761366977) JAMES (test code = JAMES) Association of [...] tests). Lab Interpretation Abnormal (test code = 87033-8) [facility] HospitalLactic Acid Whole [id number] 12:23:00 Test Item Value Reference Range Interpretation Comments LACTIC ACID (test code = 2.09 mmol/L 0.50-2.20 5649604183) Lab Interpretation (test code = Normal 69499-5) [facility] WITH [id number] 12:17:00 Test Item Value Reference Range Interpretation Comments WBC (test code = See_Comment H [Automated 8690-2) message] The sy stem which [...] RDW-SD (test code = 44.9 fL 38.5-51.6 71857-7) RDW-CV (test code = 15.9 % 12.1-15.4 H 788-0) PLT (test code = See_Comment H [Automated 777-3) message] The sy stem which generated this result transmitted reference range : 150 - 328 10*3/ ?L. The reference r torito was not used to interpret this result as normal/abnormal . MPV (test code = 8.3 fL 9.8-13.0 L 30860-3) NRBC/100 WBC (test See_Comment [Automat ed code = 3835678998) message] The system which generated this result transmitted reference range : 0.0 - 10.0 /100 WBCs. The refer ence range was not u sed to interpret th is result as normal/abnormal . NRBC x10^3 (test code <0.01 See_Comment [Auto mated = 0656391245) message] The s ystem which generated this result transmitted reference range : 10*3/?L. The reference range was not used to interpret this result as normal/abnormal . GRAN MAT (NEUT) % 77.9 % (test code = 770-8) IMM GRAN % (test code 0.50 % = 1153197880) LYMPH % (test code = 12.2 % 736-9) MONO % (test code = 5.2 % 5905-5) EOS % (test code = 3.7 % 713-8) BASO % (test code = 0.5 % 706-2) GRAN MAT x10^3(ANC) 9.57 10*3/uL 1.99-6.95 H (test code = 1383655749) IMM GRAN x10^3 (test 0.06 10*3/uL 0.00-0.06 code = 1126755388) LYMPH x10^3 (test code 1.50 10*3/uL 1.09-3.23 = 731-0) MONO x10^3 (test code 0.64 10*3/uL 0.36-1.02 = 742-7) EOS x10^3 (test code = 0.46 10*3/uL 0.06-0.53 711-2) BASO x10^3 (test code 0.06 10*3/uL 0.01-0.09 = 704-7) Lab Interpretation Abnormal (test code = 60829-6) [facility] ONLY COVID [id number] 18:43:00COVID DMT InterpretationInterpretation/Recommendations: Molecular NAAT Test Results [...] a nasopharyngeal sample, there is approximately a hmj-np-hwkbg chance that the patient was infected and [...] based upon aggregate data pooled from the [facility] medical recordincluding both current and prior COVID-19 related testing results for the following tests offered atour institution:A. Tests for the Identification of SARS-CoV-2 RNA:SARS-CoV-2 PCR assays including [place] Aptima, [place] Fusion, Barrett RealTime, and [employer] Xpert Xpress. SARS-CoV-2 Rapid ID NOW by the ID NOW assay. ? B. Tests for the Identification of SARS-CoV-2 Antibodies: Chemiluminescent immunoassays including Access SARS-CoV-2 IgM (DXI 600), VITROS Pvks-GZNO-KiG-2 IgG (Vitros 5600 and Vitros 3600), and Barrett SARS-CoV-2 IgG ([employer] I System). These interpretation comments assume that only the above testing was utilized and that the approved acceptable specimen type(s) were used for a given test. These interpretations are autopopulated into [employer] based on computerized algorithms matching an interpretation code number to the patient's set of test results. While a clinical pathologist evaluates the combinations for clinical accuracy, clinical correlation is recommended as it may not take into account very remote prior testing. Furthermore, it does not consider testing a patient may have had outside of the [facility] system. Additionally, it should be noted that the computerized algorithm treats the results for PCR testing and Rapid ID NOW testing (also PCR) synonymously, and thus, refers to both testing methodologies as PCR tests. Given that the sensitivity of [facility]'s Rapid ID NOW testing platform [...] pathogen panel may be beneficialin this setting. [facility] LABORATORY SERVICESCOVID GicwnejCETF-QnI-2 Rapid ID NOW (no units) ? ? Date ? Value ? 08/21/2020 ? Not Detected ? [facility]2020-08-23 18:25:00 Test Item Value Reference Range Interpretation Comments POCT GLU (test code = 4354596081) 297 mg/dL 70-110 H Lab Interpretation (test code = Abnormal 65223-8) [facility] GLUCOSE (AUTOMATED)2020-08-23 14:25:00 Test Item Value Reference Range Interpretation Comments POCT GLU (test code = 7299740779) 181 mg/dL 70-110 H Lab Interpretation (test code = Abnormal 95002-8) [facility] Metabolic Panel (NA, K, CL, CO2, GLUCOSE, BUN, CREATININE, CA)2020-08-23 11:45:00 Test Item Value Reference Range Interpretation Comments NA (test code = 132 mmol/L 135-145 L 7761759302) K (test code = 4.0 mmol/L 3.5-5 8105434202) CL (test code = 96 mmol/L 98-108 L 2385080442) CO2 TOTAL (test code = 33 mmol/L 23-31 H 4255997121) AGAP (test code = 2-16 3220047207) BUN (test code = 9 mg/dL 7-23 6304604293) GLUCOSE (test code = 176 mg/dL 70-110 H 6167702239) CREATININE (test code = 0.66 mg/dL 0.6-1.25 6268295226) CALCIUM (test code = 8.5 mg/dL 8.6-10.6 L 8666387661) eGFR Calculation mL/min/1.73m2 (Non-) (test code = 1583476920) eGFR Calculation mL/min/1.73m2 () (test code = 2371653449) JAMES (test code = JAMES) Association of [...] tests). Lab Interpretation Abnormal (test code = 84121-6) [facility] HospitalMagnesium [id number] 11:45:00 Test Item Value Reference Range Interpretation Comments MAGNESIUM (test code = 8431832765) 2.0 mg/dL 1.7-2.4 Lab Interpretation (test code = Normal 18670-3) [facility] with Bxtraelxulmb7211-77-40 11:38:00 Test Item Value Reference Range Interpretation [...] RDW-SD (test code = 41.8 fL 38.5-51.6 01355-9) RDW-CV (test code = 14.3 % 12.1-15.4 788-0) PLT (test code = See_Comment H [Automated 777-3) message] The sy stem which generated this result transmitted reference range : 150 - 328 10*3/ ?L. The reference r torito was not used to interpret this result as normal/abnormal . MPV (test code = 8.0 fL 9.8-13 L 88764-6) NRBC/100 WBC (test See_Comment [Automat ed code = 7861903954) message] The system which generated this result transmitted reference range : 0.0 - 10.0 /100 WBCs. The refer ence range was not u sed to interpret th is result as normal/abnormal . NRBC x10^3 (test code <0.01 See_Comment [Auto mated = 1571940935) message] The s ystem which generated this result transmitted reference range : 10*3/?L. The reference range was not used to interpret this result as normal/abnormal . GRAN MAT (NEUT) % 61.5 % (test code = 770-8) IMM GRAN % (test code 2.00 % = 6005232554) LYMPH % (test code = 25.5 % 736-9) MONO % (test code = 6.3 % 5905-5) EOS % (test code = 3.7 % 713-8) BASO % (test code = 1.0 % 706-2) GRAN MAT x10^3(ANC) 5.29 10*3/uL 1.99-6.95 (test code = 2965745341) IMM GRAN x10^3 (test 0.17 10*3/uL 0-0.06 H code = 0742205752) LYMPH x10^3 (test code 2.19 10*3/uL 1.09-3.23 = 731-0) MONO x10^3 (test code 0.54 10*3/uL 0.36-1.02 = 742-7) EOS x10^3 (test code = 0.32 10*3/uL 0.06-0.53 711-2) BASO x10^3 (test code 0.09 10*3/uL 0.01-0.09 = 704-7) Lab Interpretation Abnormal (test code = 13455-8) [facility] GLUCOSE (AUTOMATED)2020-08-23 10:22:00 Test Item Value Reference Range Interpretation Comments POCT GLU (test code = 4899251228) 164 mg/dL 70-110 H Lab Interpretation (test code = Abnormal 42968-5) [facility] GLUCOSE (AUTOMATED)2020-08-23 05:56:00 Test Item Value Reference Range Interpretation Comments POCT GLU (test code = 1166286863) 242 mg/dL 70-110 H Lab Interpretation (test code = Abnormal 71525-6) [facility] GLUCOSE (AUTOMATED)2020-08-23 03:02:00 Test Item Value Reference Range Interpretation Comments POCT GLU (test code = 7114508601) 210 mg/dL 70-110 H Lab Interpretation (test code = Abnormal 93608-8) [facility] GLUCOSE (AUTOMATED)2020-08-22 23:40:00 Test Item Value Reference Range Interpretation Comments POCT GLU (test code = 5134572175) 267 mg/dL 70-110 H Lab Interpretation (test code = Abnormal 25525-5) [facility] GLUCOSE (AUTOMATED)2020-08-22 19:08:00 Test Item Value Reference Range Interpretation Comments POCT GLU (test code = 7149756600) 191 mg/dL 70-110 H Lab Interpretation (test code = Abnormal 16513-3) [facility] GLUCOSE (AUTOMATED)2020-08-22 13:50:00 Test Item Value Reference Range Interpretation Comments POCT GLU (test code = 9354433254) 174 mg/dL 70-110 H Lab Interpretation (test code = Abnormal 81138-5) [facility]URINE [id number] 12:59:00 Test Item Value Reference Range Interpretation Comments URINE CULTURE (test No aerobic growth (< code = 630-4) 1000 CFU/mL) [facility]CBC with Hzvrvrpcatmw7225-09-38 11:28:00 Test Item Value Reference Range Interpretation Comments WBC (test code = See_Comment [Automated 6690-2) message] The sy stem which generated this result transmitted reference range : 4.20 - 10.70 10*3/?L. The reference range was not used to interpret this result as normal/abnormal . RBC (test code = See_Comment L [Automated 949-8) message] The sy stem which [...] RDW-SD (test code = 42.5 fL 38.5-51.6 30816-0) RDW-CV (test code = 14.5 % 12.1-15.4 788-0) PLT (test code = See_Comment H [Automated 777-3) message] The sy stem which generated this result transmitted reference range : 150 - 328 10*3/ ?L. The reference r torito was not used to interpret this result as normal/abnormal . MPV (test code = 8.0 fL 9.8-13 L 80382-1) NRBC/100 WBC (test See_Comment [Automat ed code = 6967204713) message] The system which generated this result transmitted reference range : 0.0 - 10.0 /100 WBCs. The refer ence range was not u sed to interpret th is result as normal/abnormal . NRBC x10^3 (test code <0.01 See_Comment [Auto mated = 2674661544) message] The s ystem which generated this result transmitted reference range : 10*3/?L. The reference range was not used to interpret this result as normal/abnormal . GRAN MAT (NEUT) % 69.1 % (test code = 770-8) IMM GRAN % (test code 2.20 % = 8911192361) LYMPH % (test code = 20.9 % 736-9) MONO % (test code = 5.8 % 5905-5) EOS % (test code = 1.0 % 713-8) BASO % (test code = 1.0 % 706-2) GRAN MAT x10^3(ANC) 6.51 10*3/uL 1.99-6.95 (test code = 7248158503) IMM GRAN x10^3 (test 0.21 10*3/uL 0-0.06 H code = 8878769791) LYMPH x10^3 (test code 1.97 10*3/uL 1.09-3.23 = 731-0) MONO x10^3 (test code 0.55 10*3/uL 0.36-1.02 = 742-7) EOS x10^3 (test code = 0.09 10*3/uL 0.06-0.53 711-2) BASO x10^3 (test code 0.09 10*3/uL 0.01-0.09 = 704-7) BASO STIPPLING (test Present A code = 703-9) BANDS (test code = Increased A 7920909042) TOXIC CHANGES (test Present A code = 803-7) Lab Interpretation Abnormal (test code = 88193-4) [facility] Metabolic Panel (NA, K, CL, CO2, GLUCOSE, BUN, CREATININE, CA)2020-08-22 11:12:00 Test Item Value Reference Range Interpretation Comments NA (test code = 135 mmol/L 135-145 5010221663) K (test code = 3.6 mmol/L 3.5-5 8343635242) CL (test code = 99 mmol/L 98-108 2655361598) CO2 TOTAL (test code = 31 mmol/L 23-31 6847192899) AGAP (test code = 2-16 9509952344) BUN (test code = 9 mg/dL 7-23 4728537804) GLUCOSE (test code = 198 mg/dL 70-110 H 1011653181) CREATININE (test code = 0.72 mg/dL 0.6-1.25 8058114198) CALCIUM (test code = 8.3 mg/dL 8.6-10.6 L 1781093632) eGFR Calculation mL/min/1.73m2 (Non-) (test code = 6127953758) eGFR Calculation mL/min/1.73m2 () (test code = 0635349762) JAMES (test code = JAMES) Association of [...] tests). Lab Interpretation Abnormal (test code = 22935-6) [facility]Magn[facility] Uurtu3055-17-07 11:12:00 Test Item Value Reference Range Interpretation Comments MAGNESIUM (test code = 3504483199) 2.0 mg/dL 1.7-2.4 Lab Interpretation (test code = Normal 66590-8) [facility] HospitalLipid Panel (Total Cholesterol, Triglycerides, HDL) - [id number] 11:12:00 Test Item Value Reference Range Interpretation Comments CHOL (test code = 155 mg/dL 120-200 4324266082) HDL (test code = 42 mg/dL >40 7309963950) HDLC RATIO (test code = See_Comment [Au tomated message] 7702423059) The system [employer] generated this result transmit ronan reference range : <=5.0. The refe rence range was not u sed to interpret th is result as normal/abnormal . TRIG (test code = 186 mg/dL 30-170 H 1195171295) LDL CHOL (test code = 76 mg/dL See_Comment [Auto mated message] 77427-5) The system [employer] generated this result transmit ronan reference range : <=160. The refe rence range was not u sed to interpret th is result as normal/abnormal . VLDL (test code = 37 mg/dL 5-60 0936821542) Lab Interpretation (test Abnormal code = 46989-8) [facility] HospitalHEPATIC FUNCTION PANEL (79722) (ALB,T.PRO,BILI T,BU/BC,ALT,AST,ALK PHOS)2020-08-22 11:12:00 Test Item Value Reference Range Interpretation Comments TOTAL BILI (test code = 7781908424) 0.6 mg/dL 0.1-1.1 BILI UNCON (test code = 8428521828) 0.2 mg/dL 0.1-1.1 BILI CONJ (test code = 7230311476) 0.0 mg/dL 0-0.3 T PROTEIN (test code = 0131766289) 6.0 g/dL 6.3-8.2 L ALBUMIN (test code = 1479783315) 2.8 g/dL 3.5-5 L ALK PHOS (test code = 2689075326) 222 U/L 34-122 H ALTv (test code = 1742-6) 27 U/L 5-50 AST(SGOT) (test code = 9563307429) 30 U/L 13-40 Lab Interpretation (test code = Abnormal 05832-6) [facility] GLUCOSE (AUTOMATED)2020-08-22 10:11:00 Test Item Value Reference Range Interpretation Comments POCT GLU (test code = 8357236483) 196 mg/dL 70-110 H Lab Interpretation (test code = Abnormal 78424-2) [facility] GLUCOSE (AUTOMATED)2020-08-22 07:15:00 Test Item Value Reference Range Interpretation Comments POCT GLU (test code = 6686588180) 183 mg/dL 70-110 H Lab Interpretation (test code = Abnormal 96689-2) [facility] GLUCOSE (AUTOMATED)2020-08-22 02:30:00 Test Item Value Reference Range Interpretation Comments POCT GLU (test code = 8358395777) 295 mg/dL 70-110 H Lab Interpretation (test code = Abnormal 63326-6) [facility] GLUCOSE (AUTOMATED)2020-08-21 23:46:00 Test Item Value Reference Range Interpretation Comments POCT GLU (test code = 6976872305) 258 mg/dL 70-110 H Lab Interpretation (test code = Abnormal 74193-6) [facility] HospitalC-REACTIVE REUEFRG2693-70-62 18:50:00 Test Item Value Reference Range Interpretation Comments CRP (test code = 9385373613) 15.5 mg/dL <0.8 H Lab Interpretation (test code = Abnormal 96205-6) [facility]PO[facility])2020-08-21 18:21:00 Test Item Value Reference Range Interpretation Comments POCT GLU (test code = 3485976432) 297 mg/dL 70-110 H Lab Interpretation (test code = Abnormal 95719-6) [facility] HospitalETHANOL2020-11-09 16:24:00 Test Item Value Reference Range Interpretation Comments ALCOHOL (test code = <10 mg/dL 8262740799) JAMES (test code = Toxic Greater than or JAMES) equal to 80 mg/dL. NOTE: Whole blood values are approximately 10% to 15% lower than serum and plasma. [facility] HospitalGAL/CLC ONLY - URINE DRUG (IMMUNOASSAY) - 4 ER [id number] 15:36:00 Test Item Value Reference Range Interpretation Comments AMPHET (test code = Negative Negative 7960201548) Cocaine Metabolite (test Negative Negative code = 6849016665) OPIATES (test code = Presumptive Positive Negative A 2754385604) THC (test code = Negative Negative 4931520455) JAMES (test code = JAMES) Urine Drug Cutoff Ranges Amphetamine: ? 1,000 ng/mLCocaine: ? 150 ng/mLOpiates: ? 300 ng/mLCannabinoids: ?50 ng/mL The results are to be used only for medical (i.e., treatment) purposes. Unconfirmed screening results must not be used for non-medical purposes (e.g., employment testing, legal testing). Lab Interpretation (test Abnormal code = 57650-9) [facility] ONLY - SYPHILIS [id number] 15:04:00 Test Item Value Reference Range Interpretation Comments Syphilis IgG/IgM (test Non-reactive Non-reactive code = 49266-0) JAMES (test code = JAMES) Non-reactive - No serologic evidence of T. pallidum infection. Cannot exclude incubating or early syphilis. Submit a second specimen in 2-4 weeks if syphilis is clinically suspected. Equivocal - Further testing to follow. Reactive - Further testing to follow. Lab Interpretation (test Normal code = 86540-9) [facility] HospitalUrinalysis2020-11-09 14:52:00 Test Item Value Reference Range Interpretation Comments APPEARANCE (test code = Clear Clear 4433751139) COLOR (test code = Yellow Yellow 0698894748) PH (test code = 4.8-8.0 1057309609) SP GRAVITY (test code = 1.003-1.030 3681082214) GLU U QUAL (test code = 500 mg/dL Normal A 3186641515) BLOOD (test code = Negative Negative 5338939515) KETONES (test code = 20 mg/dL Negative A 7056324431) PROTEIN (test code = Negative Negative 2887-8) UROBILIN (test code = Normal Normal 3402801423) BILIRUBIN (test code = Negative Negative 4356632411) NITRITE (test code = Negative Negative 0462413122) LEUK RYAN (test code = Negative Negative 1954754480) RBC/HPF (test code = <1 See_Comment [Autom ated message] 7843488647) The system [employer] generated this result transmit ronan reference range : 0 - 3 HPF. The refe rence range was not u sed to interpret th is result as normal/abnormal . WBC/HPF (test code = See_Comment [Autom ated message] 1194767942) The system [employer] generated this result transmit ronan reference range : 0 - 5 HPF. The refe rence range was not u sed to interpret th is result as normal/abnormal . BACTERIA (test code = Negative Negative 1476074579) MUCOUS (test code = Slight Negative LPF A 9432693740) Lab Interpretation (test Abnormal code = 51144-5) [facility] HospitalACTIVATED PARTIAL THRMPLAS [id number] 13:45:00 Test Item Value Reference Range Interpretation Comments APTT Patient (test code = See_Comment [ Automated message] 3173-2) The system [employer] generated this result transmitted ref erence range: 26 - 36 Seconds. The re ference range was not u sed to interpret this result as normal/abnor mal. Lab Interpretation (test Normal code = 79491-9) [facility]PO[facility])2020-08-21 13:45:00 Test Item Value Reference Range Interpretation Comments POCT GLU (test code = 9570935296) 246 mg/dL 70-110 H Lab Interpretation (test code = Abnormal 20310-4) [facility] HospitalHIV 1/2 AG-AB WITH [id number] 12:32:00 Test Item Value Reference Range Interpretation Comments HIV Negative Negative Semi-quantitative (test code = 28291-6) JAMES (test code = Non-reactive for HIV-1 JAMES) antigen and HIV-1/HIV-2 antibodies. ?No laboratory evidence of HIV infection. ?Repeat in 2-4 weeks if acute HIV infection is suspected. [facility] HospitalCBC WITH [id number] 12:18:00 Test Item Value Reference Range Interpretation [...] RDW-SD (test code = 44.4 fL 38.5-51.6 32928-4) RDW-CV (test code = 14.5 % 12.1-15.4 788-0) PLT (test code = See_Comment H [Automated 777-3) message] The sy stem which generated this result transmitted reference range : 150 - 328 10*3/ ?L. The reference r torito was not used to interpret this result as normal/abnormal . MPV (test code = 8.5 fL 9.8-13 L 20121-3) NRBC/100 WBC (test See_Comment [Automat ed code = 8552272789) message] The system which generated this result transmitted reference range : 0.0 - 10.0 /100 WBCs. The refer ence range was not u sed to interpret th is result as normal/abnormal . NRBC x10^3 (test code <0.01 See_Comment [Auto mated = 4900596172) message] The s ystem which generated this result transmitted reference range : 10*3/?L. The reference range was not used to interpret this result as normal/abnormal . GRAN MAT (NEUT) % 90.4 % (test code = 770-8) IMM GRAN % (test code 1.30 % = 9968678132) LYMPH % (test code = 7.1 % 736-9) MONO % (test code = 0.5 % 5905-5) EOS % (test code = 0.1 % 713-8) BASO % (test code = 0.6 % 706-2) GRAN MAT x10^3(ANC) 7.74 10*3/uL 1.99-6.95 H (test code = 3659413732) IMM GRAN x10^3 (test 0.11 10*3/uL 0-0.06 H code = 7273382994) LYMPH x10^3 (test code 0.61 10*3/uL 1.09-3.23 L = 731-0) MONO x10^3 (test code 0.04 10*3/uL 0.36-1.02 L = 742-7) EOS x10^3 (test code = <0.03 0.06-0.53 L 711-2) BASO x10^3 (test code 0.05 10*3/uL 0.01-0.09 = 704-7) POLYCHROMASIA (test 2+ See_Comment [Automa ronan code = 14350-1) message] The system which generated this result transmitted reference range : 2+. The referen ce range was not u sed to interpret th is result as normal/abnormal . BANDS (test code = Increased A 0965900167) Lab Interpretation Abnormal (test code = 01424-7) [facility] HospitalPROCALCITONIN2020-11-09 11:48:00 Test Item Value Reference Range Interpretation Comments Procalcitonin (test 0.36 ng/mL <0.07 H code = 0039405224) JAMES (test code = JAMES) INTERPRETATION OF [...] lung abscess/empyema. For further information please refer to:[email or web address] Lab Interpretation Abnormal (test code = 19845-5) [facility] [id number] 10:53:00 Test Item Value Reference Range Interpretation Comments LDH (test code = 1215197590) 351 U/L 300-600 Lab Interpretation (test code = Normal 08665-7) [facility]SEDIMENTATION [id number] 10:07:00 Test Item Value Reference Range Interpretation Comments ESR (test code = See_Comment H [Automated message] 1148146296) The system [employer] generated this result transmitted ref erence range: 0 - 10 m m/HR. The reference r torito was not used to interpret this result as normal/abnor mal. Lab Interpretation (test Abnormal code = 75670-1) [facility] (AUTOMATED)2020-08-21 09:45:00 Test Item Value Reference Range Interpretation Comments POCT GLU (test code = 7535171598) 287 mg/dL 70-110 H Lab Interpretation (test code = Abnormal 51652-6) [facility] HospitalGlycosylated Hemoglobin (A1C)2020-08-21 09:29:00 Test Item Value Reference Range Interpretation Comments HGB A1C (test code = 4548-4) 9.8 % 4-6 H Lab Interpretation (test code = Abnormal 67836-2) [facility]COVID[facility] (ID NOW RAPID TESTING)2020-08-21 09:13:00 Test Item Value Reference Range Interpretation Comments SARS-CoV-2 Rapid ID NOW Not Detected Not Detected (test code = 39332-6) JAMES (test code = JAMES) ID NOW COVID-19 Assay is an isothermal nucleic acid amplification test intended for the qualitative detection of nucleic acid from SARS-CoV-2 viral RNA in nasopharyngeal (NECKTIE TURNER) specimens. It is used under Emergency Use [...] indicated. Lab Interpretation Normal (test code = 73921-4) [facility] HospitalProthrombin Time / [id number] 08:59:00 Test Item Value Reference Range Interpretation Comments PROTIME PATIENT (test See_Comment H [Auto mated message] code = 5964-2) The system [employer] generated this result transmitted ref erence range: 10.1 - 1 2.6 Seconds. The reference range was not used to int erpret this result as normal/abnormal . INR (test code = 6301-6) Nor mal INR <1.1; Warfarin Therap eutic range 2.0 to 3. 0 or 2.5 to 3.5, dep ending upon the indica tions. Lab Interpretation (test Abnormal code = 42397-3) [facility]aPTT2020-11-09 08:59:00 Test Item Value Reference Range Interpretation Comments APTT Patient (test code = See_Comment [ Automated message] 3173-2) The system [employer] generated this result transmitted ref erence range: 26 - 36 Seconds. The re ference range was not u sed to interpret this result as normal/abnor mal. Lab Interpretation (test Normal code = 31613-9) [facility] HospitalBASI METABOLIC PANEL (NA, K, CL, CO2, GLUCOSE, BUN, CREATININE, CA)2020-08-21 08:52:00 Test Item Value Reference Range Interpretation Comments NA (test code = 136 mmol/L 135-145 6898318868) K (test code = 4.3 mmol/L 3.5-5 3660612271) CL (test code = 104 mmol/L 98-108 0208597370) CO2 TOTAL (test code = 24 mmol/L 23-31 7689387374) AGAP (test code = 2-16 6684824535) BUN (test code = 8 mg/dL 7-23 1661091774) GLUCOSE (test code = 308 mg/dL 70-110 H 9015600217) CREATININE (test code = 0.72 mg/dL 0.6-1.25 8843811236) CALCIUM (test code = 7.8 mg/dL 8.6-10.6 L 4844330750) eGFR Calculation mL/min/1.73m2 (Non-) (test code = 5212332253) eGFR Calculation mL/min/1.73m2 () (test code = 1818312779) JAMES (test code = JAMES) Association of [...] tests). Lab Interpretation Abnormal (test code = 53343-2) [facility] HospitalHEPATIC FUNCTION PANEL (52720) (ALB,T.PRO,BILI T,BU/BC,ALT,AST,ALK PHOS)2020-08-21 08:52:00 Test Item Value Reference Range Interpretation Comments TOTAL BILI (test code = 4511623567) 0.8 mg/dL 0.1-1.1 BILI UNCON (test code = 6716167324) 0.3 mg/dL 0.1-1.1 BILI CONJ (test code = 6330890990) 0.0 mg/dL 0-0.3 T PROTEIN (test code = 7517070112) 5.7 g/dL 6.3-8.2 L ALBUMIN (test code = 1825708751) 2.7 g/dL 3.5-5 L ALK PHOS (test code = 3865855629) 245 U/L 34-122 H ALTv (test code = 1742-6) 37 U/L 5-50 AST(SGOT) (test code = 2896543468) 43 U/L 13-40 H Lab Interpretation (test code = Abnormal 72735-4) [facility]
[2022-11-09] MEDS ORDERED: METHYLPREDNISOLONE 125 MG INJ ONE (08:34)
[2022-11-09] MEDS ORDERED: HYDROCODONE/APAP 10/325 TAB ONE (08:34)
[2022-11-09] MEDS ORDERED: IBUPROFEN 200 MG TAB PO ONE (08:34)
--- NOTE | 2022-11-09 09:28 | ER ---
Nurse's Notes [facility] Name: Kiel Ngo Age: 72 yrs Sex: Male : 1950 Arrival Date: 11/09/2022 Time: 07:33 Bed 5 Private MD: Diagnosis: Weakness;Generalized back pain with radiation to the lower extremities Presentation: 11/09 07:34 Chief complaint: EMS states: Out of his chronic pain medication, c/o back and bilateral hb hip pain 10/10. Coronavirus screen: At this time, the client does not indicate any symptoms associated with coronavirus-19. Ebola Screen: No symptoms or risks identified at this time. Initial Sepsis Screen: Does the patient meet any 2 criteria? No. Patient's initial sepsis screen is negative. Does the patient have a suspected source of infection? No. Patient's initial sepsis screen is negative. Risk Assessment: Do you want to hurt yourself or someone else? Patient reports no desire to harm self or others. Onset of symptoms was November 09, 2022. 07:34 Method Of Arrival: EMS: [facility] hb 07:34 Acuity: JOZEF 4 hb Triage Assessment: 07:35 General: Appears in no apparent distress. Behavior is calm, cooperative. Pain: Pain hb currently is 10 out of 10 on a pain scale. EENT: No signs and/or symptoms were reported regarding the EENT system. Neuro: Level of Consciousness is awake, alert, obeys commands, Oriented to person, place, time, situation. Cardiovascular: Patient's skin is warm and dry. Respiratory: Respiratory effort is even, unlabored, Respiratory pattern is regular, symmetrical. GI: No signs and/or symptoms were reported involving the gastrointestinal system. : No signs and/or symptoms were reported regarding the genitourinary system. Derm: Skin is pink, warm \T\ dry. Musculoskeletal: Reports back and hip pain. Historical: - Allergies: 07:35 Demerol; hb 07:35 metformin; hb 07:35 Morphine; hb - Home Meds: 07:35 hydromorphone 4 mg Oral tab 1 tab three times a day [Active]; Klonopin 2 mg Oral TbDi 2 hb tabs 4 times a day [Active]; - PMHx: 07:35 Atrial fibrillation; chronic back pain; Chronic right leg pain; neuropathy; hb - PSHx: 07:35 back sx; PANCREAS SX; R. Ankle SX; hb - Immunization history:: Adult Immunizations up to date. - Social history:: Smoking status: Patient denies any tobacco usage or history of. Screenin:37 [facility] ED Fall Risk Assessment (Adult) Score/Fall Risk Level 3 or more points = High hb Risk Oriented to surroundings, Maintained a safe environment, Educated pt \T\ family on fall prevention, incl call for assistance when getting out of bed, Hourly rounding (assess needs \T\ fall precautionary measures) done. Abuse screen: Denies threats or abuse. Denies injuries from another. Nutritional screening: No deficits noted. Tuberculosis screening: No symptoms or risk factors identified. Assessment: 07:37 General: SEE TRIAGE ASSESSMENT.. hb 08:47 Reassessment: Patient appears in no apparent distress at this time. Patient and/or hb family updated on plan of care and expected duration. Pain level reassessed. Patient is alert, oriented x 3, equal unlabored respirations, skin warm/dry/pink. Vital Signs: 07:34 BP 127 / 79; Pulse 106; Resp 16; Temp 98.2; Pulse Ox 100% on R/A; Weight 83.91 kg; hb Height 5 ft. 11 in. (180.34 cm); Pain 10/10; 08:46 BP 139 / 94; Pulse 90; Resp 16; Pulse Ox 99% on R/A; Pain 10/10; hb 07:34 Body Mass Index 25.80 (83.91 kg, 180.34 cm) hb ED Course: 07:33 Patient arrived in ED. hb 07:35 Triage completed. hb 07:37 Arm band placed on. hb 07:37 Patient has correct armband on for positive identification. hb 07:40 Calvin Wright MD is Attending Physician. kdr 09:26 Etienne Torres MD is Referral Physician. kdr 09:27 Madhu Francois DO is Referral Physician. kdr 10:07 No provider procedures requiring assistance completed. Patient did not have IV access ph during this emergency room visit. Administered Medications: 08:33 Drug: SOLU-Medrol (methylPREDNISolone sodium succinate) 125 mg Route: IM; Site: right hb deltoid; 08:33 Drug: Ibuprofen 600 mg Route: PO; hb 08:33 Drug: [place] (HYDROcodone-acetaminophen) 10 mg-325 mg 1 tabs Route: PO; hb Medication: 07:37 VIS not applicable for this client. hb Outcome: 09:27 Discharge ordered by . kdr : Discharged to home via ambulance. ph 10:07 Condition: good 10:07 Discharge instructions given to patient, Instructed on discharge instructions, follow up and referral plans. medication usage, Demonstrated understanding of instructions, follow-up care, medications, Prescriptions given X 2. 10:07 Patient left the ED. ph Signatures: Calvin Wright MD MD kdr Prachi Nguyen, RN RN ph Charisma George, RN RN hb
--- NOTE | 2022-11-09 09:28 | EDPHYS ---
Physician Documentation [facility] Name: Kiel Ngo Age: 72 yrs Sex: Male : 1950 Arrival Date: 11/09/2022 Time: 07:33 Bed 5 Private MD: ED Physician Calvin Wright HPI: 11/09 09:21 This 72 yrs old Male presents to ER via EMS with complaints of Back Pain. kdr 09:21 The patient presents with pain that is chronic, with no known mechanism of injury. The kdr symptoms are located in the The patient states that he has chronic pain essentially from his shoulders and upper back down through his hips and pelvis and his leg. There is nothing new or different. There has been no new trauma. He has not had a fall. He denies any change in the overall character or nature. He states that he is unable to get to pain management to get the situation resolved aside from coming to the ED. Patient is nontoxic-appearing and vital signs are stable.. Onset: The symptoms/episode began/occurred at an unknown time. The pain radiates to the Patient has constant and chronic pain from his neck and shoulders down through his hips and pelvis. This is unchanged from prior presentations. Associated signs and symptoms: The patient has no apparent associated signs or symptoms. The problem was sustained without known cause. Severity of symptoms: At their worst the symptoms were mild. The patient has experienced similar episodes in the past, chronically. The patient has been recently seen at the [facility] Emergency Department, a couple of weeks ago. Historical: - Allergies: 07:35 Demerol; hb 07:35 metformin; hb 07:35 Morphine; hb - Home Meds: 07:35 hydromorphone 4 mg Oral tab 1 tab three times a day [Active]; Klonopin 2 mg Oral TbDi 2 hb tabs 4 times a day [Active]; - PMHx: 07:35 Atrial fibrillation; chronic back pain; Chronic right leg pain; neuropathy; hb - PSHx: 07:35 back sx; PANCREAS SX; R. Ankle SX; hb - Immunization history:: Adult Immunizations up to date. - Social history:: Smoking status: Patient denies any tobacco usage or history of. ROS: 09:21 Constitutional: Negative for fever, chills, and weight loss, Eyes: Negative for injury, kdr pain, redness, and discharge, ENT: Negative for injury, pain, and discharge, Neck: Negative for injury, pain, and swelling, Cardiovascular: Negative for chest pain, palpitations, and edema, Respiratory: Negative for shortness of breath, cough, wheezing, and pleuritic chest pain, Abdomen/GI: Negative for abdominal pain, nausea, vomiting, diarrhea, and constipation, : Negative for injury, bleeding, discharge, and swelling, MS/Extremity: Negative for injury and deformity, Skin: Negative for injury, rash, and discoloration, Psych: Negative for depression, anxiety, suicide ideation, homicidal ideation, and hallucinations, Allergy/Immunology: Negative for hives, rash, and allergies, Endocrine: Negative for neck swelling, polydipsia, polyuria, polyphagia, and marked weight changes, Hematologic/Lymphatic: Negative for swollen nodes, abnormal bleeding, and unusual bruising. 09:21 Back: Positive for pain at rest, pain with movement, of the left scapular area, right scapular area, thoracic area and sacrum. Exam: 09:21 Constitutional: This is a well developed, well nourished patient who is awake, alert, kdr and in no acute distress. Head/Face: Normocephalic, atraumatic. Eyes: Pupils equal round and reactive to light, extra-ocular motions intact. Lids and lashes normal. Conjunctiva and sclera are non-icteric and not injected. Cornea within normal limits. Periorbital areas with no swelling, redness, or edema. Neck: Trachea midline, no thyromegaly or masses palpated, and no cervical lymphadenopathy. Supple, full range of motion without nuchal rigidity, or vertebral point tenderness. No Meningismus. Chest/axilla: Normal chest wall appearance and motion. Nontender with no deformity. No lesions are appreciated. Cardiovascular: Regular rate and rhythm with a normal S1 and S2. No gallops, murmurs, or rubs. Normal PMI, no JVD. No pulse deficits. Respiratory: Lungs have equal breath sounds bilaterally, clear to auscultation and percussion. No rales, rhonchi or wheezes noted. No increased work of breathing, no retractions or nasal flaring. Abdomen/GI: Soft, non-tender, with normal bowel sounds. No distension or tympany. No guarding or rebound. No evidence of tenderness throughout. Skin: Warm, dry with normal turgor. Normal color with no rashes, no lesions, and no evidence of cellulitis. MS/ Extremity: Pulses equal, no cyanosis. Neurovascular intact. Full, normal range of motion. Psych: Awake, alert, with orientation to person, place and time. Behavior, mood, and affect are within normal limits. 09:21 Musculoskeletal/extremity: Generalized weakness especially of the lower extremities. 09:21 Neuro: Orientation: appropriate for stated age, Mentation: is normal, appropriate for stated age, Cranial nerves: no acute changes, Motor: moves all fours, Sensation: no obvious gross deficits, Gait: limited by pain, needs assistance, Assisted by helping the patient to stand, seizure activity, is not displayed by the patient. Vital Signs: 07:34 BP 127 / 79; Pulse 106; Resp 16; Temp 98.2; Pulse Ox 100% on R/A; Weight 83.91 kg; hb Height 5 ft. 11 in. (180.34 cm); Pain 10/10; 08:46 BP 139 / 94; Pulse 90; Resp 16; Pulse Ox 99% on R/A; Pain 10/10; hb 07:34 Body Mass Index 25.80 (83.91 kg, 180.34 cm) hb MDM: 09:21 Data reviewed: vital signs, nurses notes, lab test result(s), radiologic studies. ED kdr course: Patient was stable in the ED, he appreciated the care provided. He was happy with the plan for discharge and follow-up. He was given pain management to follow-up as well.. 09:27 Patient medically screened. kdr Administered Medications: 08:33 Drug: SOLU-Medrol (methylPREDNISolone sodium succinate) 125 mg Route: IM; Site: right hb deltoid; 08:33 Drug: Ibuprofen 600 mg Route: PO; hb 08:33 Drug: [place] (HYDROcodone-acetaminophen) 10 mg-325 mg 1 tabs Route: PO; hb Disposition Summary: 11/09/22 09:27 Discharge Ordered Location: Home kdr Problem: an ongoing problem kdr Symptoms: have improved kdr Condition: Stable kdr Diagnosis - Weakness kdr - Generalized back pain with radiation to the lower extremities kdr Followup: kdr - With: Private Physician - When: 2 - 3 days - Reason: If symptoms return, Further diagnostic work-up, Recheck today's complaints, Continuance of care, Re-evaluation by your physician Followup: kdr - With: Etienne Torres MD - When: 2 - 3 days - Reason: If symptoms return, Further diagnostic work-up, Recheck today's complaints, Continuance of care, Re-evaluation by your physician Followup: kdr - With: Madhu Francois DO - When: 2 - 3 days - Reason: If symptoms return, Further diagnostic work-up, Recheck today's complaints, Continuance of care, Re-evaluation by your physician Discharge Instructions: - Discharge Summary Sheet kdr - Weakness, [id number] kdr - Deconditioning kdr Forms: - Medication Reconciliation Form kdr - Thank You Letter kdr Prescriptions: - Ibuprofen 600 mg Oral Tablet - take 1 tablet by ORAL route every 6 hours As needed take with food; 15 tablet; kdr Refills: 0, Product Selection Permitted - Medrol (Dylan) 4 mg Oral Tablets, Dose Pack - take 1 tablet by ORAL route as directed - follow package instructions; 1 kdr packet; Refills: 0, Product Selection Permitted Signatures: Calvin Wright MD MD kdr Charisma George, RN RN
[2022-11-09 10:12] VITALS: TEMP 98.2
[2022-11-09 10:13] VITALS: BP 139/94; O2SAT 99
== END 2022-11-09 10:07 | disposition home or self-care (01) ==
LOC: ER 07:30
DX: R53.1 Weakness (principal); M54.32 Sciatica, left side; M54.31 Sciatica, right side; I48.91 Unspecified atrial fibrillation; Z88.5 Allergy status to narcotic agent; Z88.8 Allergy status to other drugs, medicaments and biological substances
CPT/HCPCS: 96372; 99283; J2930

== ENCOUNTER 2022-11-12 19:21 | Emergency (ER) | payer OTHER ==
--- OUTSIDE RECORDS SUMMARY | 2022-11-12 19:34 | XMS REPORT | Continuity of Care Document ---
:1950 Author Organization [facility] t Address [address] [place] [address] Care Team Providers Name Role Phone CALVIN [...] PACO LACEY Attending Clinician Unavailable Doctor Unassigned, [place] Attending Clinician Unavailable Wilder VILLAREAL, Angi K.HWong Attending Clinician Jl Mccabe MD Attending Clinician Kelly Washington MD Attending Clinician [phone] Mukul Gallardo MD Attending Clinician MUKUL GALLARDO Admitting Clinician Unavailable Harrison MD, Premal G Admitting Clinician KRUPA VIKA G Admitting Clinician Unavailable Nicci VILLAREAL, Mukul Anand Admitting Clinician Payers Payer Name Policy Type Policy Number Effective Date Expiration Date Tony doe MEDICARE PART A [id number] 2007 \\T\\ B 00:00:00 [employer] INDEMNITY [id number] 2016 00:00:00 MEDICARE PART A [id number] 2014 \\T\\ B - MEDICARE 00:00:00 INDEMNITY/TRADITIO [id number] [id number] NAL CHOICE - [employer] 00:00:00 Problems Condition [...] ents Source Name Type Date Date Clinician [place] [facility] Active Rash 2019- Univers ty to [...] Quantity Comments Source Exposure to Not sure [place] of SARS-CoV-2 [place] [facility] (event) Branch History of Chews Tobacco University of tobacco use [place] [facility] History SDOH 2020-11-17 2020-11-17 5 University o f Financial 00:00:00 00:00:00 [place] [facility] History SDWY Food 2020-11-17 2020-11-17 1 Univers ity of Worry 00:00:00 00:00:00 [place] [facility] History SDOH Food 2020-11-17 2020-11-17 1 Univers ity of Scarcity 00:00:00 00:00:00 [place] [facility] History SDOH 2020-11-17 2020-11-17 1 University o f Transport Med 00:00:00 00:00:00 [place] Medic al Branch History SDOH 2020-11-17 2020-11-17 1 University o f Transport Non-Med 00:00:00 00:00:00 [facility] edical Branch Education 2020-11-16 2020-11-16 21 [place] of 00:00:00 00:00:00 [facility] Alcohol intake 2020-11-16 2020-11-16 Ex-drinker [facility] 00:00:00 00:00:00 (finding) [facility] Tobacco use and 2020-08-21 2020-08-21 Former user Universi ty of exposure 00:00:00 00:00:00 [facility] Tobacco Comment 2020-08-21 2020-08-21 quit 10 years Univer sity of 00:00:00 00:00:00 ago, started in [place] Med ical 2nd year of Branch college (~40 years) Alcohol Comment 2020-08-21 2020-08-21 Used to have 2-3 Uni versity of 00:00:00 00:00:00 six-packs of [place] Medica l beer daily x 20 Branch years, quit 2004 History [facility] 2020-08-21 2020-08-21 99 University o f Alcohol Frequency 00:00:00 00:00:00 [place] M edical Branch History [facility] 2020-08-21 2020-08-21 99 [place] o f Alcohol Std 00:00:00 00:00:00 [place] Medical Drinks Branch History [facility] 2020-08-21 2020-08-21 99 [place] o f Alcohol Binge 00:00:00 00:00:00 [facility] [place] Sex Ass[birth year] At [birth year] Universit y of 00:00:00 00:00:00 [facility] Smoking Status Start Date Stop Date [...] at [place] 18 bedtime. Medical Branch HYDROmorpho 0 Yes [...] by ity of tablet 16:47: mouth at [place] 18 bedtime. Medical Branch HYDROmorpho 0 Yes [...] 0845, Until Discontinu ed, Routine amLODIPine Yes [id number] 10mg Take 1 Univers 10 mg 3-07 tablet by ity of tablet 00:00: mouth [place] 00 daily. Medical Branch clotrimazol Yes [id number] Apply to Univers e 1 % 3-07 face/ears, ity of topical 00:00: armpits, [place] cream 00 pannus and Medical back/any Branch other rash twice a day fluocinonid 0 Yes [id number] Apply to Univers e 0.05 % 3-07 scalp ity of solution 00:00: twice a [place] 00 day Medical Branch triamcinolo Yes [id number] Apply to Univers ne 3-07 back, ity of acetonide 00:00: armpits [place] 0.1 % cream 00 and other Med ical affected Branch areas twice daily, please mix with clotrimazo le hydrOXYzine Yes [id number] 10mg Take 1 Univers 10 mg 3-07 tablet by ity of tablet 00:00: mouth 2 00 (two) Medical times Branch daily. amLODIPine Yes [id number] 10mg Take 1 Univers 10 mg 3-07 tablet by ity of tablet 00:00: mouth [place] 00 daily. Medical Branch clotrimazol Yes [id number] Apply to Univers e 1 % 3-07 face/ears, ity of topical 00:00: armpits, [place] cream 00 pannus and Medical back/any Branch other rash twice a day fluocinonid Yes [id number] Apply to Univers e 0.05 % 3-07 scalp ity of solution 00:00: twice a day Medical Branch triamcinolo Yes [id number] Apply to Univers ne 3-07 back, ity of acetonide 00:00: armpits [place] 0.1 % cream 00 and other Med ical affected Branch areas twice daily, please mix with clotrimazo le hydrOXYzine Yes [id number] 10mg Take 1 Univers 10 mg 3-07 tablet by ity of tablet 00:00: mouth 2 [place] 00 (two) Medical times Branch daily. amLODIPine Yes [id number] 10mg Take 1 Univers 10 mg 3-07 tablet by ity of tablet 00:00: mouth [place] 00 daily. Medical Branch clotrimazol 0 Yes [id number] Apply to Univers e 1 % 3-07 face/ears, ity of topical 00:00: armpits, [place] cream 00 pannus and Medical back/any Branch other rash twice a day fluocinonid 2020-0 Yes [id number] Apply to Univers e 0.05 % 3-07 scalp ity of solution 00:00: twice a day Medical Branch triamcinolo 2020-0 Yes [id number] Apply to Univers ne 3-07 back, ity of acetonide 00:00: armpits [place] 0.1 % cream 00 and other Med ical affected Branch areas twice daily, please mix with clotrimazo le hydrOXYzine Yes [id number] 10mg Take 1 Univers 10 mg 3-07 tablet by ity of tablet 00:00: mouth 2 [place] (two) Medical times Branch daily. amLODIPine Yes [id number] 10mg Take 1 Univers 10 mg 3-07 tablet by ity of tablet 00:00: mouth [place] 00 daily. Medical Branch clotrimazol Yes [id number] Apply to Univers e 1 % 3-07 face/ears, ity of topical 00:00: armpits, [place] cream 00 pannus and Medical back/any Branch other rash twice a day fluocinonid Yes [id number] Apply to Univers e 0.05 % 3-07 scalp ity of solution 00:00: twice a day Medical Branch triamcinolo 0 Yes [id number] Apply to Univers ne 3-07 back, ity of acetonide 00:00: armpits [place] 0.1 % cream 00 and other Med ical affected Branch areas twice daily, please mix with clotrimazo le hydrOXYzine Yes [id number] 10mg Take 1 Univers 10 mg 3- tablet by ity of tablet 00:00: mouth 2 (two) Medical times Branch daily. cephALEXin 2020-2020- No [id number] 500mg Take 1 Univers 500 mg -04 14- capsule by ity of capsule 00:00: 05:59 mouth [place] 00 :00 every 6 Medical (six) Branch hours for 3 days. cephALEXin 2020-0 2020- No [id number] 500mg Take 1 Univers 500 mg 3-04 14- capsule by ity of capsule 00:00: 05:59 mouth [place] 00 :00 every 6 Medical (six) Branch hours for 3 days. hydrOXYzine 2020-2020- No [id number] 10mg Take 1 Univers 10 mg 3- 03-07 tablet by ity of tablet 00:00: 00:00 mouth 2 [place] 00 :00 (two) Medical times [place] daily. morpHINE Yes 4mg 4 mg, Slow Uni vers injection 4 -06 IV Push, ity of mg 22:40: Q6HPRN, [place] 02 Starting Medical 12/16/20 [place] at 1640, Until Discontinu ed, Routine, Pain [...] 00 :00 dose, Sat Medical 12/16/20 at [place] 0515, Routine lactated 2020- No 1000mL at 125 Univ ers ringers IV 12-16 03-06 mL/hr, ity of infusion 01:00: 00:16 1,000 mL, [place] 1,000 mL 00 :00 IV Medical Infusion, [place] ONCE, 1 dose, 12/15/20 at 1900, Routine iohexol 2020- No 100mL 100 mL, Unive rs (OMNIPAQUE 12-15-05 Intravenou it y of 350 22:24: 22:24 s, ONCE, 1 [place] BULK-100 00 :00 dose, Fri Medica l mL) 12/15/20 at [place] injection 1645, 100 mL Routine cephALEXin 2020- [...] NaCl 0.9% 2020- No 500mL at 999 [facility] ers (NS) bolus 12-15-05 mL/hr, 500 it y of infusion 16:00: 15:26 mL, IV [place] 500 mL 00 :00 Piggyback, Medical ONCE, 1 Branch dose, Fri12/15/20 at 1000, STAT HYDROmorpho Yes 4mg 4 mg, [facility] ne 05 Oral, BID, ity of (DILAUDID) 15:30: First dose [place] tablet 4 mg 00 (after Medica l last Branch modificati on) on Fri12/15/20 at 0930, Until Discontinu ed, Routine amLODIPine 2020- No [id number] 10mg Take 1 Univers 10 mg 12-1507 tablet by ity of tablet 00:00: 00:00 mouth [place] 00 :00 daily. Medical Branch HYDROmorpho 2020- No 1mg 1 mg, [facility] ers ne 12-14 03-05 Oral, ity of (DILAUDID) 17:35: 15:18 Q6HPRN, [place] tablet 1 mg 30 :06 Starting Medi [facility] 12/14/20 Branch at 1135, Until Fri12/15/20 at 0918, Routine, Pain (scale 7-10) hydrOXYzine Yes 10mg 10 mg, [facility] ers (ATARAX) 304 Oral, BID, ity o f tablet 10 17:30: First dose [place] mg 00 on [facility] 12/14/20 at Branch 1130, Until Discontinu ed, Routine lisinopriL 0 Yes 5mg 5 mg, Univer s (PRINIVIL,Z -04 Oral, ity of ESTRIL) 17:30: DAILY, [place] tablet 5 mg 00 First dose Me dical on [facility] Branch 12/14/20 at 1130, Until Discontinu ed, Routine triamcinolo 2020- No [id number] Apply to Univers ne 12-14 back, ity of acetonide 00:00: 00:00 armpits [place] 0.1 % cream 00 :00 and other Med ical affected Branch areas twice daily, please mix with clotrimazo le clotrimazol 2020- No [id number] Apply to Univers e 1 % 12-14 face/ears, ity of topical 00:00: 00:00 armpits, [place] cream 00 :00 pannus and Medical back/any Branch other rash twice a day fluocinonid 2020- No [id number] Apply to Univers e 0.05 % 12-14 scalp ity of solution 00:00: 00:00 twice a [place] 00 :00 day Medical Branch hydrOXYzine 2020- No [id number] 10mg Take 1 Univers 10 mg 12-14 [...] 15U 15 Units, [facility] rs glargine 12-12 Subcutaneo ity o f (LANTUS 15:00: us, DAILY, [place] U-100) 00 First dose Medical injection on [facility] 15 Units 12/12/20 at 0900, Until [...] First dose [place] mg 00 on [facility] 12/11/20 at Branch 2100, Until Discontinu ed, [...] 00 Fri12/11/20 Me dical cream at 1315, [place] Until Discontinu ed, Routine hydrocortis 0 Yes [...] ity of 1,000 mg in 19:00: 17:35 [place], [place] NaCl 0.9% 00 :26 Q8H ABX, [...] ed, Routine insulin Yes 5U 5 Units, [facility] lispro 12-11 Subcutaneo ity of (human) 18:00: us, TID [place] (HumaLOG 00 MEALS, Medical U-100) First dose Branch injection 5 on Mon Units 12/11/20 at 1200, Until Discontinu ed Polyethylen Yes 17g 17 g, [facility] rs e Glycol 12-11 Oral, ity of 3350 17:47: [id number], [place] (MIRALAX) 05 Starting Medica l powder [...] 0630, STAT piperacilli No 3.375g 3.375 g, [facility] n-tazobacta 12-11 IV ity of m (ZOSYN) 12:00: 17:48 Piggyback, [place] injection 00 :24 Q6H, First Medi jose c 3.375 g dose on Branch Fri12/11/20 at 0600, Until Discontinu ed, KAHLIL
Re ason for Anti-Infec tive: Empiric Therapy for Suspected Infection< br>Empiric Therapy Site: Skin / Soft tissue
Duration of therapy: 72 hours sennosides- Yes [id number] 1{tbl} Take 1 [facility] docusate 2-09 tablet by ity of sodium 00:00: mouth 2 [place] 8.6-50 mg 00 (two) Medical per tablet times Branch daily. hydrocortis Yes [id number] Apply to [facility] one 2.5 % 11-21 affected ity of cream 00:00: area(s) 2 [place] 00 (two) Medical times Branch daily. blood sugar Yes [id number] Use to [facility] diagnostic 2 check ity of (FREESTYLE 00:00: blood [place] LITE 00 glucose Medical STRIPS) 4-5 times Branch strip daily. Polyethylen Yes [id number] 17g Take 1 Univers e Glycol 2-09 Packet by ity of 3350 17 00:00: mouth [place] gram powder 00 every 24 Medi jose c (twenty-fo Branch ur) hours as needed for Constipati on. sennosides- Yes [id number] 1{tbl} Take 1 Univers docusate 2-09 tablet by ity of sodium 00:00: mouth 2 [place] 8.6-50 mg 00 (two) Medical per tablet times Branch daily. hydrocortis Yes [id number] Apply to Univers one 2.5 % 2-09 affected ity of cream 00:00: area(s) 2 [place] 00 (two) Medical times Branch daily. blood sugar Yes [id number] Use to Univers diagnostic 11-21 check ity of (FREESTYLE 00:00: blood [place] LITE 00 glucose Medical STRIPS) 4-5 times Branch strip daily. Polyethylen Yes [id number] 17g Take 1 Univers e Glycol 2-09 Packet by ity of 3350 17 00:00: mouth [place] gram powder 00 every 24 Medi jose c (twenty-fo Branch ur) hours as needed for Constipati on. sennosides- Yes [id number] 1{tbl} Take 1 Univers docusate 2-09 tablet by ity of sodium 00:00: mouth 2 [place] 8.6-50 mg 00 (two) Medical per tablet times Branch daily. hydrocortis Yes [id number] Apply to Univers one 2.5 % 2-09 affected ity of cream 00:00: area(s) 2 [place] 00 (two) Medical times Branch daily. blood sugar Yes [id number] Use to Univers diagnostic 11-21 check ity of (FREESTYLE 00:00: blood [place] LITE 00 glucose Medical STRIPS) 4-5 times Branch strip daily. Polyethylen 2020-0 Yes [id number] 17g Take 1 Univers e Glycol 2-09 Packet by ity of 3350 17 00:00: mouth [place] gram powder 00 every 24 Medi jose c (twenty-fo Branch ur) hours as needed for Constipati on. sennosides- Yes [id number] 1{tbl} Take 1 Univers docusate 2-09 tablet by ity of sodium 00:00: mouth 2 [place] 8.6-50 mg 00 (two) Medical per tablet times Branch daily. hydrocortis Yes [id number] Apply to [facility] one 2.5 % 11-21 affected ity of cream 00:00: area(s) 2 [place] 00 (two) Medical times Branch daily. blood sugar Yes [id number] Use to [facility] diagnostic 11-21 check ity of (FREESTYLE 00:00: blood [place] LITE 00 glucose Medical STRIPS) 4-5 times Branch strip daily. Polyethylen Yes [id number] 17g Take 1 Univers e Glycol 11-21 Packet by ity of 3350 17 00:00: mouth [place] gram powder 00 every 24 Medi jose c (twenty-fo Branch ur) hours as needed for Constipati on. Insulin 2020- No [id number] 15U inject 15 Univers Glargine 11-21- Units ity of (LANTUS 00:00: 05:59 under [employer] SOLOSTAR 00 :00 skin every Medic al U-100 morning Branch INSULIN) for 30 100 unit/mL days. (3 mL) injection venlafaxine 2020- No [id number] 150mg Take 1 Univers XR 150 mg 11-21 capsule by ity of 24 hr 00:00: 05:59 mouth 3 [place] capsule 00 :00 (three) Medical times Branch daily for 30 days. Insulin 2020- No [id number] 15U inject 15 Univers Glargine 11-21-12 Units ity of (LANTUS 00:00: 05:59 under the [employer] SOLOSTAR 00 :00 skin every Medic al U-100 morning Branch INSULIN) for 30 100 unit/mL days. (3 mL) injection venlafaxine 2020- No [id number] 150mg Take 1 Univers XR 150 mg 11-21- capsule by ity of 24 hr 00:00: 05:59 mouth 3 [place] capsule 00 :00 (three) Medical times Branch daily for 30 days. triamcinolo 2020- No [id number] Apply to [facility] ne 11-21-04 area(s) 2 ity of acetonide 00:00: 00:00 (two) [place] 0.1 % cream 00 :00 times Medical daily. Branch cephALEXin 2020- No [id number] 1000mg Take 2 Univers 500 mg 11-21 capsules ity of capsule 00:00: 00:00 by mouth 3 [place] 00 :00 (three) Medical times Branch daily. doxycycline 2020- No [id number] 100mg Take 1 Univers hyclate 100 11-21 capsule by i ty of mg capsule 00:00: 00:00 mouth [place] 00 :00 every 12 Medical (twelve) Branch hours. lactobacill 2020- No [id number] 1{tbl} Take 1 Univers us 11-21 tablet by ity of acidophilus 00:00: 00:00 mouth 2 [place] 25 million 00 :00 (two) Medical cell -100 times Branch mg captab daily. bisacodyL 2020- No [id number] 10mg Insert 1 Univers 10 mg 11-21 Suppositor ity of suppository 00:00: 00:00 y into [place] 00 :00 rectum at Medical bedtime as Branch needed for Constipati on. ALPRAZolam 2020- No [id number] .25mg Take 1 Univers (XANAX) 11-21 tablet by ity of 0.25 mg 00:00: 00:00 mouth 2 [place] tablet 00 :00 (two) Medical times Branch daily. hydrOXYzine 2020- No [id number] 20mg Take 2 Univers 10 mg 11-21 [...] 01:13: under the [facility] FLEXPEN SC) 36 skin. [...] 01:13: under the [facility] FLEXPEN SC) 36 skin. [...] of (NOVOLOG 01:13: under the [facility] s FLEXPEN SC) 36 skin. Medical Branch ALPRAZolam 2019-10 Yes .25mg Take 0.25 U nivers (XANAX) 1-12 mg by ity of 0.25 mg 01:13: mouth 2 [place] tablet 36 (two) Medical times Branch daily. HYDROXYZINE 2019-10 2020- No 25mg Take 25 mg Univers PAMOATE 1-11 11-11 by mouth ity of ORAL 20:04: 00:00 daily. [place] 34 :00 Medical Branch hydrocortis 2019-10 Yes [id number] Apply to Univers one 2.5 % 1-11 affected ity of cream 00:00: area(s) 2 [place] 00 (two) Medical times Branch daily. hydrOXYzine 2019-10 Yes [id number] 20mg Take 2 Univers 10 mg 1-11 tablets by ity of tablet 00:00: mouth [place] 00 every 8 Medical (eight) Branch hours as needed for Itching or Anxiety. Polyethylen 2019-10 Yes [id number] 17g Take 1 Univers e Glycol 1-11 Packet by ity of 3350 17 00:00: mouth [place] gram powder 00 every 24 Medi jose c (twenty-fo Branch ur) hours as needed for Constipati on. hydrocortis 2019-10 Yes [id number] Apply to Univers one 2.5 % 1-11 affected ity of cream 00:00: area(s) 2 [place] 00 (two) Medical times Branch daily. hydrOXYzine 2019- Yes [id number] 20mg Take 2 Univers 10 mg 1-11 tablets by ity of tablet 00:00: mouth [place] 00 every 8 Medical (eight) Branch hours as needed for Itching or Anxiety. Polyethylen 2019- Yes [id number] 17g Take 1 Univers e Glycol 1-11 Packet by ity of 3350 17 00:00: mouth [place] gram powder 00 every 24 Medi jose c (twenty-fo Branch ur) hours as needed for Constipati on. hydrocortis 2019- Yes [id number] Apply to Univers one 2.5 % 1-11 affected ity of cream 00:00: area(s) 2 [place] (two) Medical times Branch daily. hydrOXYzine 2019-10 Yes [id number] 20mg Take 2 Univers 10 mg 1-11 tablets by ity of tablet 00:00: mouth [place] 00 every 8 Medical (eight) Branch hours as needed for Itching or Anxiety. Polyethylen 2019- Yes [id number] 17g Take 1 Univers e Glycol 1-11 Packet by ity of 3350 17 00:00: mouth [place] gram powder 00 every 24 Medi jose c (twenty-fo Branch ur) hours as needed for Constipati on. hydrocortis 2019-10 Yes [id number] Apply to Univers one 2.5 % 1-11 affected ity of cream 00:00: area(s) 2 [place] (two) Medical times Branch daily. hydrOXYzine 2019-10 Yes [id number] 20mg Take 2 Univers 10 mg 1-11 tablets by ity of tablet 00:00: mouth [place] 00 every 8 Medical (eight) Branch hours as needed for Itching or Anxiety. Polyethylen 2019-10 Yes [id number] 17g Take 1 Univers e Glycol 1-11 Packet by ity of 3350 17 00:00: mouth [place] gram powder 00 every 24 Medi jose c (twenty-fo Branch ur) hours as needed for Constipati on. hydrocortis 2019-10 Yes [id number] Apply to Univers one 2.5 % 1-11 affected ity of cream 00:00: area(s) 2 [place] 00 (two) Medical times Branch daily. hydrOXYzine 2019-10 Yes [id number] 20mg Take 2 Univers 10 mg 1-11 tablets by ity of tablet 00:00: mouth [place] 00 every 8 Medical (eight) Branch hours as needed for Itching or Anxiety. Polyethylen 2019- Yes [id number] 17g Take 1 Univers e Glycol 1-11 Packet by ity of 3350 17 00:00: mouth [place] gram powder 00 every 24 Medi jose c (twenty-fo Branch ur) hours as needed for Constipati on. hydrocortis 2019-10 Yes [id number] Apply to Univers one 2.5 % 1-11 affected ity of cream 00:00: area(s) 2 [place] 00 (two) Medical times Branch daily. hydrOXYzine 2019- Yes [id number] 20mg Take 2 Univers 10 mg 1-11 tablets by ity of tablet 00:00: mouth [place] 00 every 8 Medical (eight) Branch hours as needed for Itching or Anxiety. Polyethylen 2019- Yes [id number] 17g Take 1 Univers e Glycol 1-11 Packet by ity of 3350 17 00:00: mouth [place] gram powder 00 every 24 Medi jose c (twenty-fo Branch ur) hours as needed for Constipati on. hydrocortis 2019- Yes [id number] Apply to Univers one 2.5 % 1-11 affected ity of cream 00:00: area(s) 2 [place] 00 (two) Medical times Branch daily. hydrOXYzine 2019- Yes [id number] 20mg Take 2 Univers 10 mg 1-11 tablets by ity of tablet 00:00: mouth [place] 00 every 8 Medical (eight) Branch hours as needed for Itching or Anxiety. Polyethylen 2019- Yes [id number] 17g Take 1 Univers e Glycol 1-11 Packet by ity of 3350 17 00:00: mouth [place] gram powder 00 every 24 Medi jose c (twenty-fo Branch ur) hours as needed for Constipati on. triamcinolo 2019- 2020- No [id number] Apply to Univers ne 10-23 area(s) 2 ity of acetonide 00:00: 05:59 (two) [place] 0.1 % cream 00 :00 times Medical daily for Branch 14 days. triamcinolo 2019- 2020- No [id number] Apply to Univers ne 10-23 area(s) 2 ity of acetonide 00:00: 05:59 (two) [place] 0.1 % cream 00 :00 times Medical daily for Branch 14 days. triamcinolo 2020- 2020- No [id number] Apply to [facility] ne 10-23 area(s) 2 ity of acetonide 00:00: 05:59 (two) [place] 0.1 % cream 00 :00 times Medical daily for Branch 14 days. KCL 2019- 2020- No 40meq 40 mEq, Univers (KLOR-CON 1-10 11-10 Oral, ONCE ity of M20) tablet 16:15: 16:23 NOW, 1 [place] 40 mEq 00 :00 dose, [facility] 08/22/20 Branch at 1015, Routine HYDROmorpho 2019-10 Yes 1mg 1 mg, Unive rs ne 1-10 Oral, ity of (DILAUDID) 15:07: Q6HPRN, [place] tablet 1 mg 53 Starting [facility] 08/22/20 at 0907, Until Discontinu ed, Routine, Pain (scale 7-10) hydrocortis 2019-10 Yes Topical Uni vers one 2.5 % 1-10 (Apply To ity o f cream 02:00: Affected [place] 00 Areas), Medical BID, First Branch dose on [facility] 08/21/20 at 2000, Until Discontinu ed, Routine triamcinolo 2019-10 Yes Topical, Un toi ne 1-10 BID, First ity of acetonide 02:00: dose on [place] (TRIDERM) [facility] Medical 0.1 % cream 08/21/20 at Br anch 2000, Until Discontinu ed, Routine hydrOXYzine 2019-10 Yes 20mg 20 mg, Univ ers (ATARAX) 09 Oral, ity of tablet 20 17:39: Q8HPRN, [place] mg 12 Starting [facility] 08/21/20 at 1139, Until Discontinu ed, Routine, Itching, Anxiety sennosides- 2019-10 Yes 1{tbl} 1 tablet, Univers docusate 10-21 Oral, ity of sodium 15:00: DAILY, [place] (SENOKOT-S) 00 First dose Me dical 8.6-50 mg on [facility] per tablet 08/21/20 at 1 tablet 0900, [...] dose [place] capsule 150 00 on [facility] Medica l mg 08/21/20 [...] 25 59 :43 Starting Medica l mg [facility] 08/21/20 at 0656, Until Fri08/21/20 at 1139, Routine, Itching, Mild Rash, Congestion /Allergies , alternate with hydroxyzin e hydrOXYzine 2019-10- No 10mg 10 mg, Uni vers (ATARAX) 10-21 Oral, ity of tablet 10 10:20: 12:57 Q6HPRN, [place] mg 22 :12 Starting Medical [facility] 08/21/20 at 0420, Until Fri08/21/20 at 0657, [...] 1 ity o f 09:30: 09:14 dose, [facility] 00 :00 08/21/20 at [facility] 0330, Branch Routine Polyethylen 2019-10 Yes 17g 17 g, [facility] rs e Glycol 10-21 Oral, ity of 3350 08:29: [id number], [place] (MIRALAX) 09 Starting Medica l powder 17 g [facility] 08/21/20 at 0229, Until Discontinu ed, Routine, Constipati on lanolin 2019-10 Yes Topical, Univer s alcohol-mo- 10-21 PRN, ity of w.pet-ceres 08:26: Starting [place] (EUCERIN) 30 [facility] Medical cream 08/21/20 at [...] 2020- No Take by [facility] s (BETAPACE) 10-21 mouth ity of 240 mg 07:43: 00:00 every 12 [place] tablet 30 :00 (twelve) Medical hours. Branch blood sugar Yes Use to [facility] ers diagnostic 4-25 check ity of (FREESTYLE 00:00: blood [place] LITE 00 glucose Medical STRIPS) 4-5 times Branch strip daily. blood sugar Yes Use to [facility] ers diagnostic 4-25 check ity of (FREESTYLE 00:00: blood [place] LITE 00 glucose Medical STRIPS) 4-5 times Branch strip daily. blood sugar Yes Use to [facility] ers diagnostic 4-25 check ity of (FREESTYLE 00:00: blood [place] LITE 00 glucose Medical STRIPS) 4-5 times Branch strip daily. blood sugar Yes Use to [facility] ers diagnostic 4-25 check ity of (FREESTYLE [...] 2021-08-22 13:00:00 148 mm[Hg] Univer sity of [facility] Diastolic blood 2021-08-22 13:00:00 84 mm[Hg] Unive rsity of [facility] Heart rate 2021-08-22 13:00:00 103 /min [facility] Respiratory rate 2021-08-22 13:00:00 18 /min [facility] Oxygen saturation in 2021-08-22 13:00:00 95 /min University of Arterial blood by [facility] Pulse oximetry [place] Body temperature 2021-08-22 12:22:00 36.72 [facility] Systolic blood 2020-12-17 18:35:00 139 mm[Hg] Univer sity of [facility] Diastolic blood 2020-12-17 18:35:00 87 mm[Hg] Unive rsity of [facility] Heart rate 2020-12-17 18:35:00 110 /min [facility] Body temperature 2020-12-17 18:35:00 37.72 [facility] Respiratory rate 2020-12-17 18:35:00 18 /min [facility] saturation in 2020-12-17 18:35:00 93 /min University of Arterial blood by [facility] Pulse oximetry Branch Body height 2020-12-12 08:21:00 180.3 cm [facility] Body weight 2020-12-12 08:21:00 103.42 kg [facility] [place] [facility] BMI 2020-12-12 08:21:00 31.80 kg/m2 [facility] [place] [facility] Systolic blood 2020-12-17 18:35:00 139 [...] [facility] Pulse oximetry Branch Body height 2020-12-12 08:21:00 [...] [facility] Pulse oximetry Branch Body weight 2020-08-21 07:20:00 104.962 kg [facility] [place] [facility] BMI 2020-08-21 07:20:00 32.27 kg/m2 [facility] [place] [facility] Systolic blood 2020-08-23 19:27:00 140 mm[Hg] Univer sity of pressure [facility] Diastolic blood 2020-08-23 19:27:00 79 mm[Hg] [facility] pressure [facility] Heart rate 2020-08-23 19:27:00 99 /min [facility] Body temperature 2020-08-23 19:27:00 36 [facility] Respiratory rate 2020-08-23 19:27:00 18 /min [facility] Oxygen saturation in 2020-08-23 19:27:00 93 /min [facility] blood by [facility] Pulse oximetry [place] Body weight 2020-08-21 07:20:00 104.962 kg [facility] BMI 2020-08-21 07:20:00 32.27 kg/m2 [facility] Procedures Procedure Date / Time Performing Clinician Source Performed POCT GLUCOSE (AUTOMATED) 2020-12-17 15:42:00 Favio Harrisonal [facility] BASIC METABOLIC PANEL 2020-12-17 10:45:00 Paul Bean [facility] (NA, K, CL, CO2, GLUCOSE, [facility] BUN, CREATININE, CA) CBC WITH DIFF 2020-12-17 10:45:00 Paul Bean [facility] POCT GLUCOSE (AUTOMATED) 2020-12-17 02:36:00 Harrison [facility] XR TIBIA FIBULA 2 VW LEFT 2020-12-16 23:38:00 [facility]SE ([facility]OMATED) 2020-12-16 23:20:00 Harrison, [facility] PO[facility] GLUCOSE (AUTOMATED) 2020-12-16 20:10:00 Harrison, [facility]al [facility] POCT GLUCOSE (AUTOMATED) 2020-12-16 14:43:00 [facility] BASIC METABOLIC PANEL 2020-12-16 13:51:00 Paul Bean [facility] (NA, K, CL, CO2, GLUCOSE, [facility] BUN, CREATININE, CA) CBC WITH DIFF 2020-12-16 13:51:00 Paul Bean [facility] POCT GLUCOSE (AUTOMATED) 2020-12-16 04:00:00 Harrison, Premal G Uni versity of [facility] POCT GLUCOSE (AUTOMATED) 2020-12-16 00:14:00 Harrison, Premal G Uni versity [facility] CT CHEST PULMONARY 2020-12-15 22:29:38 Palu Bean [facility] ANGIOGRAM [facility] POCT GLUCOSE (AUTOMATED) 2020-12-15 19:26:00 Harrison, [facility]al [facility] POCT GLUCOSE (AUTOMATED) 2020-12-15 15:13:00 Krupa, Premal [facility] HB ECG ROUTINE & RHYTHM 2020-12-15 14:25:27 Cailin Romo [facility] MAGNESIUM 2020-12-15 12:01:00 Paul Bean Sivakumar [facility] BASIC METABOLIC PANEL 2020-12-15 12:01:00 Paul Bean [facility] (NA, K, CL, CO2, GLUCOSE, [facility] BUN, CREATININE, CA) CBC WITH DIFF 2020-12-15 12:01:00 Paul Bean [facility] POCT GLUCOSE (AUTOMATED) 2020-12-15 03:57:00 Harrison, Premal G Uni versity of [facility] POCT GLUCOSE (AUTOMATED) 2020-12-14 23:31:00 Harrison, Premal G Uni versity of [facility] POCT GLUCOSE (AUTOMATED) 2020-12-14 19:08:00 Harrison, Premal G Uni versity of [facility] POCT GLUCOSE (AUTOMATED) 2020-12-14 15:11:00 Harrison, Premal G Uni versity of [facility] POCT GLUCOSE (AUTOMATED) 2020-12-14 02:36:00 Harrison, Premal G Uni versity of [facility] POCT GLUCOSE (AUTOMATED) 2020-12-13 23:32:00 Harrison, Premal G Uni versity of [facility] POCT GLUCOSE (AUTOMATED) 2020-12-13 18:08:00 Harrison, Premal G Uni versity of [facility] BASIC METABOLIC PANEL 2020-12-13 15:39:00 Paul Bean [facility] (NA, K, CL, CO2, GLUCOSE, [facility] BUN, CREATININE, CA) CBC WITH DIFF 2020-12-13 15:39:00 Paul Bean [facility] POCT GLUCOSE (AUTOMATED) 2020-12-13 14:06:00 Harrison, Premal G Uni versity of [facility] POCT GLUCOSE (AUTOMATED) 2020-12-13 03:07:00 Harrison, Premal G Uni versity of [facility] POCT GLUCOSE (AUTOMATED) 2020-12-12 23:52:00 Harrison, Premal G Uni versity of [facility] POCT GLUCOSE (AUTOMATED) 2020-12-12 20:28:00 Harrison, Premal G Uni versity of [facility] POCT GLUCOSE (AUTOMATED) 2020-12-12 19:14:00 Harrison, Premal G Uni versity of [facility] POCT GLUCOSE (AUTOMATED) 2020-12-12 14:33:00 Harrison, Premal G Uni versity of [facility] MAGNESIUM 2020-12-12 08:58:00 Paul Bean [facility] BASIC METABOLIC PANEL 2020-12-12 08:58:00 Paul Bean [facility] (NA, K, CL, CO2, GLUCOSE, [facility] BUN, CREATININE, CA) CBC WITH DIFF 2020-12-12 08:58:00 Paul Bean [facility] US ABDOMEN LIMITED 2020-12-12 06:32:[address] [facility] POCT GLUCOSE (AUTOMATED) 2020-12-12 03:40:00 Harrison, Premal G Uni versity of [facility] POCT GLUCOSE (AUTOMATED) 2020-12-12 00:06:00 Harrison, Premal G Uni versity of [facility] XR HIPS 3 VW LEFT 2020-12-11 20:20:00 Paul Bean Sivakumar [facility] HB ECG ROUTINE & RHYTHM 2020-12-11 20:04:06 Demetrius [facility] STRIP [facility] VITAMIN B6, PLASMA 2020-12-11 19:17:[address] [facility] POCT GLUCOSE (AUTOMATED) 2020-12-11 19:06:00 Vika [facility] CREATINE KINASE 2020-12-11 18:22:00 Parvez [facility] VITAMIN B12, LEVEL 2020-12-11 18:22:00 Vikas [facility] FOLATE 2020-12-11 18:22:00 [facility] THYROID STIMULATING 2020-12-11 18:22:00 Demetrius [facility] HORMONE [facility] PROCALCITONIN 2020-12-11 18:22:00 Vikas [facility] VITAMIN B1 (THIAMINE), 2020-12-11 18:22:00 [facility] WHOLE BLOOD [facility] CT HEAD WO CONTRAST 2020-12-11 14:07:35 Sweetie Stout [facility] URINALYSIS 2020-12-11 13:44:00 Singer [facility] URINE CULTURE 2020-12-11 13:44:00 Singer [facility] COVID-19 (ID NOW RAPID 2020-12-11 12:31:00 Paco Lacey [facility] TESTING) Medical Branch LAB ONLY COVID 2020-12-11 12:31:00 Singer [facility] INTERPRETATION [facility] XR CHEST 1 VW 2020-12-11 12:07:24 Singer [facility] BLOOD CULTURE SCREEN 2020-12-11 12:02:00 Paco Lacey [facility] MAGNESIUM 2020-12-11 12:02:00 Vikas [facility] FERRITIN SERUM 2020-12-11 12:02:00 Paul Bean [facility] Kaley [facility] COMP. METABOLIC PANEL 2020-12-11 12:02:00 Singer [facility] ([id number]) [facility] CBC WITH DIFF 2020-12-11 12:02:00 Singer [facility] LACTIC ACID WHOLE BLOOD 2020-12-11 12:02:00 Singer Paco [facility] BLOOD CULTURE SCREEN 2020-12-11 11:42:00 Singer Paco [facility] EMERGENCY SERVICES 2020-12-11 06:01:00 Doctor Unassigned, [facility] AGREEMENTS AND [place] [facility] [place] AUTHORIZATIONS HOSPITAL ADMISSION 2020-12-11 06:01:00 Doctor Unaow[place], [facility] Name [facility] [place] HOME HEALTH - OTHER 2020-11-11 06:01:00 Doctor Tabitha [facility] Name [facility] [place] HOME HEALTH - OTHER 2020-10-30 06:01:00 Doctor Unaowen [facility] Name [facility] [place] EXTERNAL PROVIDER RECORDS 2020-09-01 06:01:00 Doctor Tabitha, [facility] Name [facility] POCT GLUCOSE (AUTOMATED) 2020-08-23 18:09:00 Kelly [facility] POCT GLUCOSE (AUTOMATED) 2020-08-23 14:14:00 Kelly [facility] MAGNESIUM 2020-08-23 11:18:00 Ramya [facility] BASIC METABOLIC PANEL 2020-08-23 11:18:00 [place] [facility] (NA, K, CL, CO2, GLUCOSE, Medica l Branch BUN, CREATININE, CA) CBC WITH DIFF 2020-08-23 11:18:00 [place] [facility] POCT GLUCOSE (AUTOMATED) 2020-08-23 10:21:00 Kelly [facility] POCT GLUCOSE (AUTOMATED) 2020-08-23 05:55:00 Kelly [facility] POCT GLUCOSE (AUTOMATED) 2020-08-23 03:00:00 Stefania [facility] PO[facility]SE (AUTOMATED) 2020-08-22 23:38:00 Bety Washingtonmarie Elias versity of [facility] POCT GLUCOSE (AUTOMATED) 2020-08-22 19:04:00 Bety Washington[facility] [facility] POCT GLUCOSE (AUTOMATED) 2020-08-22 13:49:00 Kelly [place] Jada versity [facility] MAGNESIUM 2020-08-22 10:10:00 [facility] [facility] FUN[facility] PANEL 2020-08-22 10:10:00 Aguila Melchor [facility] ([id number]) (ALB,T.PRO,BILI Medical Branch T,BU/BC,ALT,AST,ALK PHOS) BASIC METABOLIC PANEL 2020-08-22 10:10:00 [facility] (NA, K, CL, CO2, GLUCOSE, Medica l Branch BUN, CREATININE, CA) LIPID PANEL ([id number])(TOTAL 2020-08-22 10:10:00 [place], [facility] CHOLESTEROL, [facility] [place] TRIGLYCERIDES, HDL) CBC WITH DIFF 2020-08-22 10:10:00 [facility] POCT GLUCOSE (AUTOMATED) 2020-08-22 10:10:00 Bety [facility] POCT GLUCOSE (AUTOMATED) 2020-08-22 07:13:00 Kelly Washington Jada versity [facility] POCT GLUCOSE (AUTOMATED) 2020-08-22 02:24:00 Bety Washingtonmarie Elias versity [facility] POCT GLUCOSE (AUTOMATED) 2020-08-21 23:40:00 Kelly Washington Jada versity of [facility] POCT GLUCOSE (AUTOMATED) 2020-08-21 18:10:00 Kelly Washington Jada versity [facility] POCT GLUCOSE (AUTOMATED) 2020-08-21 13:39:00 Kelly Washington Jada versity [facility] ETHANOL 2020-08-21 12:35:00 [facility] 2020-08-21 12:35:00 Stefania [facility] GALV ONLY - SYPHILIS 2020-08-21 12:35:00 Stefania [facility] IGG/IGM [facility] LACTATE DEHYDROGENASE 2020-08-21 10:09:00 Ramya, [facility] GALV/CLC ONLY - URINE 2020-08-21 10:09:00 Richie [facility] DRUG (IMMUNOASSAY) - 4 ER Medica l Branch PANEL URINALYSIS 2020-08-21 10:09:00 Ramya, [facility] URINE CULTURE 2020-08-21 10:09:00 Ramya, [facility] PROCALCITONIN 2020-08-21 10:09:00 [place], [facility] POCT GLUCOSE (AUTOMATED) 2020-08-21 09:41:00 Stefania Kelly [facility] PROTHROMBIN TIME / INR 2020-08-21 08:32:00 [place], [facility] ACTIVATED PARTIAL 2020-08-21 08:32:00 [place], [facility] C-REACTIVE PROTEIN 2020-08-21 08:31:00 Ramya, [facility] HEPATIC FUNCTION PANEL 2020-08-21 08:31:00 [place], [facility] ([id number]) (ALB,T.PRO,BILI Medical Branch T,BU/BC,ALT,AST,ALK PHOS) BASIC METABOLIC PANEL 2020-08-21 08:31:00 [place], [facility] (NA, K, CL, CO2, GLUCOSE, [facility] BUN, CREATININE, CA) SEDIMENTATION RATE 2020-08-21 08:31:00 [place], [facility] CBC WITH DIFF 2020-08-21 08:31:00 [place], [facility] GLYCOSYLATED HEMOGLOBIN 2020-08-21 08:31:00 [place], [facility] (A1C) Medical Branch HIV 1/2 AG-AB WITH REFLEX 2020-08-21 08:31:00 Kelly [place] [facility] [place] [facility] COVID-[facility] (ID NOW RAPID 2020-08-21 08:20:00 Haily Bui [facility] TESTING) Medical Branch LAB ONLY COVID 2020-08-21 08:20:00 [place] [facility] [place] INTERPRETATION [facility] Branch Encounters Start End Encounter Admission Attending Care Care Encounter Source Date/Time Date/Time Type Type Clinicians Facility Department ID 2020-08-21 Inpatient U STEFANIA [facility] [id number] Univers 01:07:00 KELLY brandenana [facility] 2021-08-22 2021-08-22 Emergency [facility] [id number] Univers 06:21:00 08:02:00 SWEETIE cantu [facility] 2021-08-22 2021-08-22 Emergency [facility] [id number] Univers 06:21:00 08:02:00 Sweetie LOTT [id number] i [place] [id number] [facility] 084 Branch 2021-08-09 2021-08-09 Outpatient JACQUELYN HAINES [facility] [id number] [facility] 10:27:03 10:27:03 ADRIANA lopez of Medicin e 2020-12-28 2020-12-28 Telephone [facility] [id number] 00:00:00 00:00:00 Calvin H PRIMARY [id number] CARE 4.2.7.2.686 PAVILLION [id number] 2020-12-28 2020-12-28 Telephone [facility] 1.2.840.114 [id number] Univers 00:00:00 00:00:00 Calvin H PRIMARY [id number] it y [place] [id number] [place] dical 220 Branch 2020-12-19 2020-12-19 Transition Tuan Peters 1.2.840.114 [id number] 00:00:00 00:00:00 of Care Ruchi Braswell 350.1.13.10 [place] 4.2.7.2.686 [id number] 2020-12-19 2020-12-19 Transition Tuan Peters 1.2.840.114 [id number] Univers 00:00:00 00:00:00 of Care Ruchi Braswell 350.1.13.10 it [place] [id number] [facility] 403 Branch 2020-12-11 2020-12-17 [facility] Paco Lacey 1.2.840.1 [id number] 05:11:00 16:00:00 Encounter Vika [place] 350.1.13.10 [facility] 4.2.7.2.[id number] [facility] 2020-12-11 2020-12-17 [facility] Paco Lacey 1.2.840.1 [id number] [facility] 05:11:00 16:00:00 Encounter Vika Harrison [place] 350.1.13.10 ity [facility] 4.2.7.[address] [place] [address] [id number] [facility] 096 Branch 2020-12-11 2020-12-17 Inpatient X [facility] [id number] Univers 05:11:00 16:00:00 pepe [facility] 2020-11-16 2020-11-16 Emergency X [facility] ERT [id number] [facility] 09:31:00 09:31:00 PACO cantu [facility] 2020-11-11 2020-11-11 Orders Doctor CUI 1.2.840.114 [id number] 00:00:00 00:00:00 Only UnassignedMONIQUE 350.1.13.10 [place] [facility] 4.2.7.2.686 [id number] 2020-11-11 2020-11-11 Orders Doctor CUI 1.2.840.114 [id number] [facility] 00:00:00 00:00:00 Only Unassigned, MONIQUE 350.1.13.10 ity of [place] [facility] 4.2.7.2.686 Jeff as [id number] [address] 2020-11-07 2020-11-07 [facility] [id number] 00:00:00 00:00:00 Angi Lott 350.1.13.10 [place] 4.2.7.2.686 Professio [id number] [address] 2020-11-07 2020-11-07 Telephone [facility] [id number] [facility] 00:00:00 00:00:00 Angi Lott 350.1.13.10 ity of [place] Profess[place] [id number] [place] dic[address] 2020-10-30 2020-10-30 Orders Doctor BASILIA 1.2.840.114 [id number] 00:00:00 00:00:00 Only Unassigned, MONIQUE 350.1.13.10 [place] [facility] 4.2.7.2.686 [id number] [facility] 2020-10-30 2020-10-30 Orders Doctor BASILIA 1.2.840.114 [id number] [facility] 00:00:00 00:00:00 Only Unassigned, MONIQUE 350.1.13.10 ity of [place] [facility] 4.2.7.2.686 Jeff as [id number] [address] 2020-09-26 2020-09-26 Telephone Eliot [facility] 1.2.840.114 [id number] 00:00:00 00:00:00 [facility] 350.1.13.10 CLINICS 4.2.7.2.686 [id number] [facility] 2020-09-26 2020-09-26 Telephone Eliot [facility] 1.2.840.114 [id number] [facility] 00:00:00 00:00:00 [facility] 350.1.13.10 i ty of [place] [id number] [address] 2020-09-01 2020-09-01 Orders Doctor BASILIA 1.2.840.114 [id number] 00:00:00 00:00:00 Only Unassigned, MONIQUE 350.1.13.10 [place] [facility] 4.2.7.2.686 [id number] [id number] 2020-09-01 2020-09-01 Orders Doctor BASILIA 1.2.840.114 [id number] Univers 00:00:00 00:00:00 Only Unassigned, MONIQUE 350.1.13.10 ity of [place] [facility] 4.2.7.2.686 Jeff as [id number] [facility] 009 Branch 2020-08-25 2020-08-25 Transition Tuan Peters 1.2.840.114 [id number] 00:00:00 00:00:00 of Care Ruchi Braswell 350.1.13.10 [place] 4.2.7.2.686 [id number] 2020-08-25 2020-08-25 Transition Tuan Peters 1.2.840.114 [id number] Univers 00:00:00 00:00:00 of Care Ruchi Braswell 350.1.13.10 it y of [place] [id number] [facility] 403 [place] 2020-08-21 2020-08-23 [facility] Ayleen 1.2.840.114 [id number] 01:07:00 18:35:00 Encounter Kelly Monique 350.1.13.10 [facility] 4.2.7.2.686 [id number] [facility] 2020-08-21 2020-08-23 [facility] 1. 2.840.114 [id number] [facility] 01:07:00 18:35:00 Encounter Mukul Gallardo 350.1.13. 10 ity of [facility] 4.2.7.2.686 Jeff as [id number] [address] Results Test Description Test Time Test Comments Results Result Comments Source POCT GLUCOSE (AUTOMATED) 2020-12-17 15:43:35 Test Item Value Reference Range Interpretation Comme nts POCT GLU (test code = 3922978528) 129 mg/dL 70-110 H Lab Interpretation (test code = 94667-0) Abnormal [facility] (NA, K, CL, CO2, GLUCOSE, BUN, CREATININE, CA)2020-12-17 11:45:07 Test Item Value Reference Range Interpretation Comments NA (test code = 137 mmol/L 135-145 7332328006) K (test code = 3.5 mmol/L 3.5-5.0 2064981788) CL (test code = 103 mmol/L 98-108 9412665145) CO2 TOTAL (test code = 26 mmol/L 23-31 3365324987) AGAP (test code = 2-16 1634992848) BUN (test code = 11 mg/dL 7-23 6668582461) GLUCOSE (test code = 175 mg/dL 70-110 H 9425125743) CREATININE (test code = 0.62 mg/dL 0.60-1.25 9880658559) CALCIUM (test code = 9.0 mg/dL 8.6-10.6 6903145848) eGFR Calculation mL/min/1.73m2 (Non-) (test code = 5924717843) eGFR Calculation mL/min/1.73m2 () (test code = 9261455082) JAMES (test code = JAMES) Association of [...] tests). Lab Interpretation Abnormal (test code = 69261-2) [facility] WITH [id number] 11:07:27 Test Item Value Reference Range Interpretation [...] RDW-SD (test code = 45.2 fL 38.5-51.6 17619-9) RDW-CV (test code = 16.9 % 12.1-15.4 H 788-0) PLT (test code = See_Comment H [Automated 777-3) message] The sy stem which generated this result transmitted reference range : 150 - 328 10*3/ ?L. The reference r torito was not used to interpret this result as normal/abnormal . MPV (test code = 8.1 fL 9.8-13.0 L 43970-7) NRBC/100 WBC (test See_Comment [Automat ed code = 7495933060) message] The system which generated this result transmitted reference range : 0.0 - 10.0 /100 WBCs. The refer ence range was not u sed to interpret th is result as normal/abnormal . NRBC x10^3 (test code <0.01 See_Comment [Auto mated = 4574390024) message] The s ystem which generated this result transmitted reference range : 10*3/?L. The reference range was not used to interpret this result as normal/abnormal . GRAN MAT (NEUT) % 72.8 % (test code = 770-8) IMM GRAN % (test code 0.60 % = 4552137429) LYMPH % (test code = 18.4 % 736-9) MONO % (test code = 5.7 % 5905-5) EOS % (test code = 1.8 % 713-8) BASO % (test code = 0.7 % 706-2) GRAN MAT x10^3(ANC) 8.23 10*3/uL 1.99-6.95 H (test code = 6484093174) IMM GRAN x10^3 (test 0.07 10*3/uL 0.00-0.06 H code = 9836803221) LYMPH x10^3 (test code 2.08 10*3/uL 1.09-3.23 = 731-0) MONO x10^3 (test code 0.65 10*3/uL 0.36-1.02 = 742-7) EOS x10^3 (test code = 0.20 10*3/uL 0.06-0.53 711-2) BASO x10^3 (test code 0.08 10*3/uL 0.01-0.09 = 704-7) Lab Interpretation Abnormal (test code = 75165-0) [facility]2020-12-17 06:03:38 Test Item Value Reference Range Interpretation Comments POCT GLU (test code = 9980713767) 75 mg/dL 70-110 Lab Interpretation (test code = Normal 13177-1) [facility] Tyler[facility] B6, [id number] 00:01:00 Test Item Value Reference Range Interpretation Comments VIT B6 (test code = 13.1 nmol/L 20.0-125.0 L INTERPRE TIVE 03690-2) INFORMATION: Vi tamin B6 (Pyridoxal 5-Phosphate) Pyridoxal [...] intended for cl inical purposes.Perfor med By: [employer] [place] [id number] Director: Namrata Klein MD Lab Interpretation Abnormal (test code = 42928-4) [facility] TIBIA FIBULA 2 VW [id number] 23:57:09 Tricompartmental knee joint osteoarthrosis.XR TIBIA FIBULA [...] Interpretation Comments POCT GLU (test code = 4777290821) 114 mg/dL 70-110 H Lab Interpretation (test code = Abnormal 02940-1) [facility] GLUCOSE (AUTOMATED)2020-12-16 20:12:00 Test Item Value Reference Range Interpretation Comments POCT GLU (test code = 8274541252) 105 mg/dL 70-110 Lab Interpretation (test code = Normal 24858-3) [facility] GLUCOSE (AUTOMATED)2020-12-16 14:44:00 Test Item Value Reference Range Interpretation Comments POCT GLU (test code = 4505065002) 153 mg/dL 70-110 H Lab Interpretation (test code = Abnormal 54270-4) [facility] METABOLIC PANEL (NA, K, CL, CO2, GLUCOSE, BUN, CREATININE, CA)2020-12-16 14:23:00 Test Item Value Reference Range Interpretation Comments NA (test code = 138 mmol/L 135-145 6526553695) K (test code = 3.4 mmol/L 3.5-5.0 L 3343463997) CL (test code = 100 mmol/L 98-108 4165092307) CO2 TOTAL (test code = 31 mmol/L 23-31 8588793022) AGAP (test code = 2-16 2026392760) BUN (test code = 11 mg/dL 7-23 1487528892) GLUCOSE (test code = 162 mg/dL 70-110 H 5393044307) CREATININE (test code = 0.64 mg/dL 0.60-1.25 1107545350) CALCIUM (test code = 8.9 mg/dL 8.6-10.6 9101443139) eGFR Calculation mL/min/1.73m2 (Non-) (test code = 4295409616) eGFR Calculation mL/min/1.73m2 () (test code = 0939635108) JAMES (test code = JAMES) Association of [...] tests). Lab Interpretation Abnormal (test code = 17060-0) [facility] WITH [id number] 14:05:00 Test Item Value Reference Range Interpretation [...] RDW-SD (test code = 45.4 fL 38.5-51.6 28823-2) RDW-CV (test code = 17.0 % 12.1-15.4 H 788-0) PLT (test code = See_Comment H [Automated 777-3) message] The sy stem which generated this result transmitted reference range : 150 - 328 10*3/ ?L. The reference r torito was not used to interpret this result as normal/abnormal . MPV (test code = 8.0 fL 9.8-13.0 L 64559-4) NRBC/100 WBC (test See_Comment [Automat ed code = 2733718551) message] The system which generated this result transmitted reference range : 0.0 - 10.0 /100 WBCs. The refer ence range was not u sed to interpret th is result as normal/abnormal . NRBC x10^3 (test code <0.01 See_Comment [Auto mated = 8453848819) message] The s ystem which generated this result transmitted reference range : 10*3/?L. The reference range was not used to interpret this result as normal/abnormal . GRAN MAT (NEUT) % 70.0 % (test code = 770-8) IMM GRAN % (test code 0.70 % = 3842853489) LYMPH % (test code = 20.5 % 736-9) MONO % (test code = 7.1 % 5905-5) EOS % (test code = 1.0 % 713-8) BASO % (test code = 0.7 % 706-2) GRAN MAT x10^3(ANC) 9.44 10*3/uL 1.99-6.95 H (test code = 9204664023) IMM GRAN x10^3 (test 0.09 10*3/uL 0.00-0.06 H code = 5088346170) LYMPH x10^3 (test code 2.76 10*3/uL 1.09-3.23 = 731-0) MONO x10^3 (test code 0.96 10*3/uL 0.36-1.02 = 742-7) EOS x10^3 (test code = 0.13 10*3/uL 0.06-0.53 711-2) BASO x10^3 (test code 0.10 10*3/uL 0.01-0.09 H = 704-7) Lab Interpretation Abnormal (test code = 05012-5) [facility] [id number] 13:01:00 Test Item Value Reference Range Interpretation Comments Blood Culture-Aerobic No organisms No growth Previo us (test code = 57006-0) isolated prelim inary verified result was Culture In Progress on 12/11/2020 at 100 1 CSTPrevious preliminary verified result was No growth a t 24 hours on 12/12/2020 at 070 1 CSTPrevious preliminary verified result was No growth a t 48 hours on 12/13/2020 at 070 1 CSTPrevious preliminary verified result was No growth a t 72 hours on 12/14/2020 at 070 1 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 Blood No organisms No growth Previous Culture-Anaerobic isolated preliminar y (test code = 54435-0) verifi ed result was Culture In Progress on 12/11/2020 at 100 1 CSTPrevious preliminary verified result was No growth a t 24 hours on 12/12/2020 at 070 1 CSTPrevious preliminary verified result was No growth a t 48 hours on 12/13/2020 at 070 1 CSTPrevious preliminary verified result was No growth a t 72 hours on 12/14/2020 at 070 1 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 Lab Interpretation Normal (test code = 93241-1) [facility] Culture - Peripheral # [id number] 13:01:00 Test Item Value Reference Range Interpretation Comments Blood Culture-Aerobic No organisms No growth Previo us (test code = 62653-3) isolated prelim inary verified result was Culture In Progress on 12/11/2020 at 100 1 CSTPrevious preliminary verified result was No growth a t 24 hours on 12/12/2020 at 070 1 CSTPrevious preliminary verified result was No growth a t 48 hours on 12/13/2020 at 070 1 CSTPrevious preliminary verified result was No growth a t 72 hours on 12/14/2020 at 070 1 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 Blood No organisms No growth Previous Culture-Anaerobic isolated preliminar y (test code = 13708-9) verifi ed result was Culture In Progress on 12/11/2020 at 100 1 CSTPrevious preliminary verified result was No growth a t 24 hours on 12/12/2020 at 070 1 CSTPrevious preliminary verified result was No growth a t 48 hours on 12/13/2020 at 070 1 CSTPrevious preliminary verified result was No growth a t 72 hours on 12/14/2020 at 070 1 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 No interval change in [...] Interpretation Comments POCT GLU (test code = 3993512785) 140 mg/dL 70-110 H Lab Interpretation (test code = Abnormal 98789-2) [facility] 15:26:00 Test Item Value Reference Range Interpretation Comments MAGNESIUM (test code = 9004617479) 2.2 mg/dL 1.7-2.4 Lab Interpretation (test code = Normal 04693-2) [facility] GLUCOSE (AUTOMATED)2020-12-15 15:15:00 Test Item Value Reference Range Interpretation Comments POCT GLU (test code = 5667662137) 181 mg/dL 70-110 H Lab Interpretation (test code = Abnormal 39858-4) [facility] METABOLIC PANEL (NA, K, CL, CO2, GLUCOSE, BUN, CREATININE, CA)2020-12-15 13:07:00 Test Item Value Reference Range Interpretation Comments NA (test code = 136 mmol/L 135-145 2353338932) K (test code = 3.6 mmol/L 3.5-5.0 8822558436) CL (test code = 96 mmol/L 98-108 L 1485925313) CO2 TOTAL (test code = 29 mmol/L 23-31 8994347926) AGAP (test code = 2-16 8646601104) BUN (test code = 12 mg/dL 7-23 2059746093) GLUCOSE (test code = 183 mg/dL 70-110 H 6538135807) CREATININE (test code = 0.70 mg/dL 0.60-1.25 0784589008) CALCIUM (test code = 9.2 mg/dL 8.6-10.6 5749742206) eGFR Calculation mL/min/1.73m2 (Non-) (test code = 9420981198) eGFR Calculation mL/min/1.73m2 () (test code = 5977890179) JAMES (test code = JAMES) Association of [...] tests). Lab Interpretation Abnormal (test code = 06794-7) [facility] WITH [id number] 12:32:00 Test Item Value Reference Range Interpretation Comments WBC (test code = See_Comment H [Automated 4290-2) message] The system which generated this result transmit ronan reference range : 4.20 - 10.70 10*3/?L. The reference range was not used to interpret this result as normal/abnormal . RBC (test code = See_Comment H [Automated 559-8) message] The system which generated this result [...] RDW-SD (test code = 44.4 fL 38.5-51.6 95689-7) RDW-CV (test code = 17.7 % 12.1-15.4 H 788-0) PLT (test code = See_Comment H [Automated 777-3) message] The system which generated this result transmit ronan reference range : 150 - 328 10*3/ ?L. The reference range was not u sed to interpret th is result as normal/abnormal . MPV (test code = 8.1 fL 9.8-13.0 L 87276-0) NRBC/100 WBC (test See_Comment [Automat ed code = 8265922060) message] The system which generated this result transmit ronan reference range : 0.0 - 10.0 /100 WBCs. The reference range was not used to interpret this result as normal/abnormal . NRBC x10^3 (test code <0.01 See_Comment [Auto mated = 6051379866) message] The system which generated this result transmit ronan reference range : 10*3/?L. The reference range was not used to interpret this result as normal/abnormal . GRAN MAT (NEUT) % 74.5 % (test code = 770-8) IMM GRAN % (test code 0.70 % = 8882420341) LYMPH % (test code = 17.4 % 736-9) MONO % (test code = 6.8 % 5905-5) EOS % (test code = 0.2 % 713-8) BASO % (test code = 0.4 % 706-2) GRAN MAT x10^3(ANC) 11.99 10*3/uL 1.99-6.95 H (test code = 5393804402) IMM GRAN x10^3 (test 0.11 10*3/uL 0.00-0.06 H code = 3311866402) LYMPH x10^3 (test code 2.80 10*3/uL 1.09-3.23 = 731-0) MONO x10^3 (test code 1.10 10*3/uL 0.36-1.02 H = 742-7) EOS x10^3 (test code = 0.03 10*3/uL 0.06-0.53 L 711-2) BASO x10^3 (test code 0.06 10*3/uL 0.01-0.09 = 704-7) Lab Interpretation Abnormal (test code = 66785-7) [facility] GLUCOSE (AUTOMATED)2020-12-15 04:16:00 Test Item Value Reference Range Interpretation Comments POCT GLU (test code = 4229293944) 200 mg/dL 70-110 H Lab Interpretation (test code = Abnormal 98317-6) [facility] Tyler[facility]ITAMIN B1 (THIAMINE), WHOLE [id number] 00:30:00 Test Item Value Reference Range Interpretation Comments Vitamin B1, Whole 136 nmol/L 70-180 INTERPRETI VE INFORMATION: Blood (test code = Vitamin B 1, Whole Blood 09449-4) This assay júnior ures the concentration o [...] clinical purposes.Perfor med By: [facility] [address] [place], [place] [address]T aboratory Director: Namrata Klein MD [facility] GLUCOSE (AUTOMATED)2020-12-14 23:35:00 Test Item Value Reference Range Interpretation Comments POCT GLU (test code = 9868583999) 151 mg/dL 70-110 H Lab Interpretation (test code = Abnormal 70522-7) [facility] GLUCOSE (AUTOMATED)2020-12-14 19:19:00 Test Item Value Reference Range Interpretation Comments POCT GLU (test code = 3959253731) 193 mg/dL 70-110 H Lab Interpretation (test code = Abnormal 78648-5) [facility] GLUCOSE (AUTOMATED)2020-12-14 15:22:00 Test Item Value Reference Range Interpretation Comments POCT GLU (test code = 6449181493) 221 mg/dL 70-110 H Lab Interpretation (test code = Abnormal 28687-4) [facility] GLUCOSE (AUTOMATED)2020-12-14 02:37:00 Test Item Value Reference Range Interpretation Comments POCT GLU (test code = 1991071998) 210 mg/dL 70-110 H Lab Interpretation (test code = Abnormal 94847-0) [facility] GLUCOSE (AUTOMATED)2020-12-13 23:33:00 Test Item Value Reference Range Interpretation Comments POCT GLU (test code = 0414517645) 182 mg/dL 70-110 H Lab Interpretation (test code = Abnormal 50510-2) [facility] GLUCOSE (AUTOMATED)2020-12-13 18:09:00 Test Item Value Reference Range Interpretation Comments POCT GLU (test code = 8041431099) 150 mg/dL 70-110 H Lab Interpretation (test code = Abnormal 47365-1) [facility] METABOLIC PANEL (NA, K, CL, CO2, GLUCOSE, BUN, CREATININE, CA)2020-12-13 16:27:00 Test Item Value Reference Range Interpretation Comments NA (test code = 136 mmol/L 135-145 5752063720) K (test code = 3.7 mmol/L 3.5-5.0 8803495167) CL (test code = 96 mmol/L 98-108 L 8921787442) CO2 TOTAL (test code = 29 mmol/L 23-31 7080657003) AGAP (test code = 2-16 8676040696) BUN (test code = 6 mg/dL 7-23 L 8362244682) GLUCOSE (test code = 212 mg/dL 70-110 H 2171172273) CREATININE (test code = 0.61 mg/dL 0.60-1.25 6591439944) CALCIUM (test code = 9.5 mg/dL 8.6-10.6 0275804828) eGFR Calculation mL/min/1.73m2 (Non-) (test code = 8127288800) eGFR Calculation mL/min/1.73m2 () (test code = 6688505365) JAMES (test code = JAMES) Association of [...] tests). Lab Interpretation Abnormal (test code = 88404-0) [facility] WITH [id number] 16:10:00 Test Item Value Reference Range Interpretation Comments WBC (test code = See_Comment H [Automated 9690-2) message] The sy stem which generated this result transmitted reference range : 4.20 - 10.70 10*3/?L. The reference range was not used to interpret this result as normal/abnormal . RBC (test code = See_Comment H [Automated 539-8) message] The sy stem which [...] RDW-SD (test code = 43.3 fL 38.5-51.6 35349-5) RDW-CV (test code = 16.2 % 12.1-15.4 H 788-0) PLT (test code = See_Comment H [Automated 777-3) message] The sy stem which generated this result transmitted reference range : 150 - 328 10*3/ ?L. The reference r torito was not used to interpret this result as normal/abnormal . MPV (test code = 8.2 fL 9.8-13.0 L 87315-8) NRBC/100 WBC (test See_Comment [Automat ed code = 8193132781) message] The system which generated this result transmitted reference range : 0.0 - 10.0 /100 WBCs. The refer ence range was not u sed to interpret th is result as normal/abnormal . NRBC x10^3 (test code <0.01 See_Comment [Auto mated = 2197781943) message] The s ystem which generated this result transmitted reference range : 10*3/?L. The reference range was not used to interpret this result as normal/abnormal . GRAN MAT (NEUT) % 86.2 % (test code = 770-8) IMM GRAN % (test code 0.70 % = 2660437744) LYMPH % (test code = 10.2 % 736-9) MONO % (test code = 2.5 % 5905-5) EOS % (test code = 0.1 % 713-8) BASO % (test code = 0.3 % 706-2) GRAN MAT x10^3(ANC) 9.61 10*3/uL 1.99-6.95 H (test code = 3066393694) IMM GRAN x10^3 (test 0.08 10*3/uL 0.00-0.06 H code = 2671245103) LYMPH x10^3 (test code 1.14 10*3/uL 1.09-3.23 = 731-0) MONO x10^3 (test code 0.28 10*3/uL 0.36-1.02 L = 742-7) EOS x10^3 (test code = <0.03 0.06-0.53 L 711-2) BASO x10^3 (test code 0.03 10*3/uL 0.01-0.09 = 704-7) Lab Interpretation Abnormal (test code = 36812-5) [facility]13 14:16:00 Test Item Value Reference Range Interpretation Comments POCT GLU (test code = 1980166325) 236 mg/dL 70-110 H Lab Interpretation (test code = Abnormal 77311-2) [facility] ONLY COVID [id number] 04:58:00COVID DMT InterpretationInterpretation/Recommendations: Molecular NAAT Tests for [...] testing the patient has had at [facility], including molecular NAAT testing (more commonly known as PCR testing and Rapid ID Now testing) and antibody testing. It does not take into account any testingthat a patient has had outside of the [facility] medical record. [facility] LABORATORY SERVICESCOVID KuzpscaHJLX-LlO-6 Rapid ID NOW (no units) ? ? Date ? Value ? 12/11/2020 ? Not Detected ? ? ? 11/16/2020 ? Not Detected ? ? ? 08/21/2020 ? Not Detected ? [facility] 2020-12-13 03:11:00 Test Item Value Reference Range Interpretation Comments POCT GLU (test code = 8953140006) 171 mg/dL 70-110 H Lab Interpretation (test code = Abnormal 10855-6) [facility] GLUCOSE (AUTOMATED)2020-12-13 00:00:00 Test Item Value Reference Range Interpretation Comments POCT GLU (test code = 4422298818) 118 mg/dL 70-110 H Lab Interpretation (test code = Abnormal 97447-8) [facility] GLUCOSE (AUTOMATED)2020-12-12 20:29:00 Test Item Value Reference Range Interpretation Comments POCT GLU (test code = 2564174484) 173 mg/dL 70-110 H Lab Interpretation (test code = Abnormal 88694-9) [facility] ABDOMEN [id number] 19:56:17 1. ?Hepatic steatosis. However, limited evaluation [...] main portal veinwasevaluated with color Doppler imaging. Dermatologist Managing Partner images were obtainedfor the record. COMPARISON: Ultrasound [...] portal vein wasevaluated with color Doppler imaging. Dermatologist Managing Partner images wereobtainedfor the record.COMPARISON: Ultrasound abdomen 11/17/2028. [...] reviewed this study and agree with the abovereport.[facility]2020-12-12 19:24:00 Test Item Value Reference Range Interpretation Comments POCT GLU (test code = 3729328307) 230 mg/dL 70-110 H Lab Interpretation (test code = Abnormal 29009-5) [facility] CHEST 1 [id number] 15:16:46 Low lung volumes with mild perihilar [...] reviewed this study and agree with theabove report.[facility]2020-12-12 14:34:00 Test Item Value Reference Range Interpretation Comments POCT GLU (test code = 5779697399) 225 mg/dL 70-110 H Lab Interpretation (test code = Abnormal 93071-2) [facility] TylerURINE [id number] 13:28:00 Test Item Value Reference Range Interpretation Comments URINE CULTURE (test < 10,000 CFU/mL mixed code = 630-4) aerobic organisms - suggests endogenous microbial contamination [facility] (NA, K, CL, CO2, GLUCOSE, BUN, CREATININE, CA)2020-12-12 10:05:00 Test Item Value Reference Range Interpretation Comments NA (test code = 136 mmol/L 135-145 0889425156) K (test code = 3.5 mmol/L 3.5-5.0 1291756472) CL (test code = 100 mmol/L 98-108 7124530552) CO2 TOTAL (test code = 31 mmol/L 23-31 5480151238) AGAP (test code = 2-16 4676449046) BUN (test code = 7 mg/dL 7-23 0705528405) GLUCOSE (test code = 259 mg/dL 70-110 H 3910121018) CREATININE (test code = 0.63 mg/dL 0.60-1.25 3439417848) CALCIUM (test code = 8.5 mg/dL 8.6-10.6 L 2566081814) eGFR Calculation mL/min/1.73m2 (Non-) (test code = 3020096744) eGFR Calculation mL/min/1.73m2 () (test code = 1449144990) JAMES (test code = JAMES) Association of [...] tests). Lab Interpretation Abnormal (test code = 84512-7) [facility] TylerMagnesium [id number] 10:05:00 Test Item Value Reference Range Interpretation Comments MAGNESIUM (test code = 5471364992) 1.9 mg/dL 1.7-2.4 Lab Interpretation (test code = Normal 94049-7) [facility] with [id number] 09:48:00 Test Item Value Reference Range Interpretation Comments WBC (test code = See_Comment [Automated 9097-2) message] The sy stem which generated this result transmitted reference range : 4.20 - 10.70 10*3/?L. The reference range was not used to interpret this result as normal/abnormal . RBC (test code = See_Comment [Automated 714-8) message] The sy stem which generated this [...] RDW-SD (test code = 46.0 fL 38.5-51.6 68464-8) RDW-CV (test code = 16.1 % 12.1-15.4 H 788-0) PLT (test code = See_Comment H [Automated 777-3) message] The sy stem which generated this result transmitted reference range : 150 - 328 10*3/ ?L. The reference r torito was not used to interpret this result as normal/abnormal . MPV (test code = 8.6 fL 9.8-13.0 L 82194-3) NRBC/100 WBC (test See_Comment [Automat ed code = 8416786746) message] The system which generated this result transmitted reference range : 0.0 - 10.0 /100 WBCs. The refer ence range was not u sed to interpret th is result as normal/abnormal . NRBC x10^3 (test code <0.01 See_Comment [Auto mated = 8189478963) message] The s ystem which generated this result transmitted reference range : 10*3/?L. The reference range was not used to interpret this result as normal/abnormal . GRAN MAT (NEUT) % 70.2 % (test code = 770-8) IMM GRAN % (test code 0.30 % = 8904657059) LYMPH % (test code = 18.8 % 736-9) MONO % (test code = 5.0 % 5905-5) EOS % (test code = 5.2 % 713-8) BASO % (test code = 0.5 % 706-2) GRAN MAT x10^3(ANC) 6.05 10*3/uL 1.99-6.95 (test code = 3382302241) IMM GRAN x10^3 (test 0.03 10*3/uL 0.00-0.06 code = 3341799354) LYMPH x10^3 (test code 1.62 10*3/uL 1.09-3.23 = 731-0) MONO x10^3 (test code 0.43 10*3/uL 0.36-1.02 = 742-7) EOS x10^3 (test code = 0.45 10*3/uL 0.06-0.53 711-2) BASO x10^3 (test code 0.04 10*3/uL 0.01-0.09 = 704-7) Lab Interpretation Abnormal (test code = 36498-7) [facility]2020-12-12 03:42:00 Test Item Value Reference Range Interpretation Comments POCT GLU (test code = 196 mg/dL 70-110 H Notifi ed Provider 2935705785) Lab Interpretation (test Abnormal code = 29633-7) [facility] TylerFOLATE2021-03-02 02:24:00 Test Item Value Reference Range Interpretation Comments FOLATE SER (test code = 2364077436) 5.8 ng/mL 3.0-20.0 Lab Interpretation (test code = Normal 17186-7) [facility] TylerVITAMIN B12, [id number] 00:55:00 Test Item Value Reference Range Interpretation Comments VIT B12 (test code = 844 pg/mL 240-930 5992580161) JAMES (test code = JAMES) Biotin has been reported to cause a positive bias, interpret results relative to patient's use of biotin. Lab Interpretation (test Normal code = 74699-8) [facility] GLUCOSE (AUTOMATED)2020-12-12 00:14:00 Test Item Value Reference Range Interpretation Comments POCT GLU (test code = 5115697615) 164 mg/dL 70-110 H Lab Interpretation (test code = Abnormal 82887-0) [facility] TylerCREATINE [id number] 23:42:00 Test Item Value Reference Range Interpretation Comments CK (test code = 5482000315) <20 33-194 L Lab Interpretation (test code = Abnormal 02556-3) [facility] TylerTHYROID STIMULATING [id number] 23:17:00 Test Item Value Reference Range Interpretation Comments TSH (test code = See_Comment Biotin has been 6724902082) reported to cau se a negative bias, interpret resul ts relative to johnny bills's use of biotin. [Automated mess age] The system [employer] generated this result transmitted ref erence range: 0.45 - 4 .70 mIU/L. The refe rence range was not u sed to interpret this result as normal/abnor mal. Lab Interpretation (test Normal code = 54153-1) [facility] TylerXR HIPS 3 VW [id number] 21:41:53No appreciable fracture lines. RL: 6200 ICAL [...] No osseous erosions.IMPRESSIONNo appreciable fracture lines.RL: 6200 [facility]PROCAL[facility]IN20[facility]-01 20:00:00 Test Item Value Reference Range Interpretation Comments Procalcitonin (test 0.13 ng/mL <0.07 H code = 7246404122) JAMES (test code = JAMES) INTERPRETATION OF [...] biotics/default.asp Lab Interpretation Abnormal (test code = 79196-8) [facility]2020-12-11 19:07:00 Test Item Value Reference Range Interpretation Comments POCT GLU (test code = 1208112983) 274 mg/dL 70-110 H Lab Interpretation (test code = Abnormal 07970-7) [facility] TylerMAGNESIUM2021-03-01 18:31:00 Test Item Value Reference Range Interpretation Comments MAGNESIUM (test code = 1439927044) 1.9 mg/dL 1.7-2.4 Lab Interpretation (test code = Normal 89966-0) [facility] TylerFERRITIN [id number] 18:31:00 Test Item Value Reference Range Interpretation Comments FERRITIN (test code = 178.0 ng/mL 18.0-464.0 8101025814) JAMES (test code = JAMES) Biotin has been reported to cause a negative bias, interpret results relative to patient's use of biotin. Lab Interpretation (test Normal code = 09168-0) [facility] HEAD WO [id number] 14:36:47 No acute intracranial abnormality. Dilated ventricles [...] reviewed this study and agree with the abovereport.[facility] Tyler[facility]INALYSIS20[facility] 14:28:00 Test Item Value Reference Range Interpretation Comments APPEARANCE (test code = Clear Clear 5662605108) COLOR (test code = Yellow Yellow 2196652383) PH (test code = 4.8-8.0 1324570101) SP GRAVITY (test code = 1.003-1.030 1469280588) GLU U QUAL (test code = 500 mg/dL Normal A 9046757782) BLOOD (test code = Negative Negative 7121169310) KETONES (test code = 5 mg/dL Negative A 5834408727) PROTEIN (test code = Negative Negative 2887-8) UROBILIN (test code = Normal Normal 5776407777) BILIRUBIN (test code = Negative Negative 5878192928) NITRITE (test code = Negative Negative 2345525661) LEUK RYAN (test code = Negative Negative 8755112678) RBC/HPF (test code = See_Comment [Autom ated message] 1323020915) The system [employer] generated this result transmit ronan reference range : 0 - 3 HPF. The refe rence range was not u sed to interpret th is result as normal/abnormal . WBC/HPF (test code = See_Comment [Autom ated message] 7314934994) The system [employer] generated this result transmit ronan reference range : 0 - 5 HPF. The refe rence range was not u sed to interpret th is result as normal/abnormal . BACTERIA (test code = Negative Negative 9192745675) MUCOUS (test code = Slight Negative LPF A 2718051514) SQ EPITH (test code = HPF 4988249951) Lab Interpretation (test Abnormal code = 42201-7) [facility] (ID NOW RAPID TESTING)2020-12-11 13:10:00 Test Item Value Reference Range Interpretation Comments SARS-CoV-2 Rapid ID NOW Not Detected Not Detected (test code = 82826-6) JAMES (test code = JAMES) ID NOW COVID-19 Assay is an isothermal nucleic acid amplification test intended for the qualitative detection of nucleic acid from SARS-CoV-2 viral RNA in nasopharyngeal (ENERGY SYSTEMS ENGINEER) specimens. It is used under Emergency [...] indicated. Lab Interpretation Normal (test code = 98676-8) [facility]. METABOLIC PANEL (27489)2020-12-11 12:29:00 Test Item Value Reference Range Interpretation Comments NA (test code = 136 mmol/L 135-145 9059830305) K (test code = 3.5 mmol/L 3.5-5.0 7253159953) CL (test code = 95 mmol/L 98-108 L 5151091753) CO2 TOTAL (test code = 35 mmol/L 23-31 H 1459288846) AGAP (test code = 2-16 6243387862) BUN (test code = 9 mg/dL 7-23 3127119891) GLUCOSE (test code = 329 mg/dL 70-110 H 3598829401) CREATININE (test code = 0.72 mg/dL 0.60-1.25 0997617963) TOTAL BILI (test code = 0.6 mg/dL 0.1-1.5 8246630736) CALCIUM (test code = 9.0 mg/dL 8.6-10.6 3113045789) T PROTEIN (test code = 6.8 g/dL 6.3-8.2 9198659933) ALBUMIN (test code = 3.8 g/dL 3.5-5.0 7153881622) ALK PHOS (test code = 288 U/L 34-122 H 7536213161) ALTv (test code = 46 U/L 5-50 1742-6) AST(SGOT) (test code = 38 U/L 13-40 0175674264) eGFR Calculation mL/min/1.73m2 (Non-) (test code = 3813129507) eGFR Calculation mL/min/1.73m2 () (test code = 0695772765) JAMES (test code = JAMES) Association of [...] tests). Lab Interpretation Abnormal (test code = 35591-4) [facility] Tyler[facility] Whole [id number] 12:23:00 Test Item Value Reference Range Interpretation Comments LACTIC ACID (test code = 2.09 mmol/L 0.50-2.20 3826690669) Lab Interpretation (test code = Normal 03624-2) [facility] WITH [id number] 12:17:00 Test Item Value Reference Range Interpretation Comments WBC (test code = See_Comment H [Automated 7290-2) message] The sy stem which generated this result transmitted reference range : 4.20 - 10.70 10*3/?L. The reference range was not used to interpret this result as normal/abnormal . RBC (test code = See_Comment [Automated 029-8) message] The sy stem which generated this [...] RDW-SD (test code = 44.9 fL 38.5-51.6 60012-3) RDW-CV (test code = 15.9 % 12.1-15.4 H 788-0) PLT (test code = See_Comment H [Automated 777-3) message] The sy stem which generated this result transmitted reference range : 150 - 328 10*3/ ?L. The reference r torito was not used to interpret this result as normal/abnormal . MPV (test code = 8.3 fL 9.8-13.0 L 19947-9) NRBC/100 WBC (test See_Comment [Automat ed code = 9075809704) message] The system which generated this result transmitted reference range : 0.0 - 10.0 /100 WBCs. The refer ence range was not u sed to interpret th is result as normal/abnormal . NRBC x10^3 (test code <0.01 See_Comment [Auto mated = 8017006747) message] The s ystem which generated this result transmitted reference range : 10*3/?L. The reference range was not used to interpret this result as normal/abnormal . GRAN MAT (NEUT) % 77.9 % (test code = 770-8) IMM GRAN % (test code 0.50 % = 4390175136) LYMPH % (test code = 12.2 % 736-9) MONO % (test code = 5.2 % 5905-5) EOS % (test code = 3.7 % 713-8) BASO % (test code = 0.5 % 706-2) GRAN MAT x10^3(ANC) 9.57 10*3/uL 1.99-6.95 H (test code = 8543460588) IMM GRAN x10^3 (test 0.06 10*3/uL 0.00-0.06 code = 6134359245) LYMPH x10^3 (test code 1.50 10*3/uL 1.09-3.23 = 731-0) MONO x10^3 (test code 0.64 10*3/uL 0.36-1.02 = 742-7) EOS x10^3 (test code = 0.46 10*3/uL 0.06-0.53 711-2) BASO x10^3 (test code 0.06 10*3/uL 0.01-0.09 = 704-7) Lab Interpretation Abnormal (test code = 88922-7) [facility] COVID [id number] 18:43:00COVID DMT InterpretationInterpretation/Recommendations: Molecular NAAT Test Results [...] a nasopharyngeal sample, there is approximately a ojw-gh-fyiop chance that the patient was infected and [...] aggregate data pooled from the [facility] medical recordincluding both current and prior COVID-19 related testing results for the following tests offered atour institution:A. Tests for the Identification of SARS-CoV-2 RNA:SARS-CoV-2 PCR assays including [place] Aptima, [place] Fusion, Barrett RealTime, and [facility] Xpert Xpress. SARS-CoV-2 Rapid ID NOW by the ID NOW assay. ? B. Tests for the Identification of SARS-CoV-2 Antibodies: Chemiluminescent immunoassays including Access SARS-CoV-2 IgM (DXI 600), VITROS Ialq-AUES-AeO-2 IgG (Vitros 5600 and Vitros 3600), and Barrett SARS-CoV-2 IgG (COUNTRY SINGER I System). These interpretation comments assume that only the above testing was utilized and that the approved acceptable specimen type(s) were used for a given test. These interpretations are autopopulated into [employer] based on computerized algorithms matching an interpretation code number to the patient's set of test results. While a clinical pathologist evaluates the combinations for clinical accuracy, clinical correlation is recommended as it may not take into account very remote prior testing. Furthermore, it does not consider testing a patient may have had outside of the [facility] system. Additionally, it should be noted that the computerized algorithm treats the results for PCR testing and Rapid ID NOW testing (also PCR) synonymously, and thus, refers to both testing methodologies as PCR tests. Given that the sensitivity of [facility]'s Rapid ID NOW testing platform is [...] panel may be beneficialin this setting. [facility] LABORATORY SERVICESCOVID YytqdooPOOG-DxO-6 Rapid ID NOW (no units) ? ? Date ? Value ? 08/21/2020 ? Not Detected ? [facility]2020-08-23 18:25:00 Test Item Value Reference Range Interpretation Comments POCT GLU (test code = 6731226766) 297 mg/dL 70-110 H Lab Interpretation (test code = Abnormal 94452-6) [facility] GLUCOSE (AUTOMATED)2020-08-23 14:25:00 Test Item Value Reference Range Interpretation Comments POCT GLU (test code = 3715715974) 181 mg/dL 70-110 H Lab Interpretation (test code = Abnormal 16532-7) [facility] Metabolic Panel (NA, K, CL, CO2, GLUCOSE, BUN, CREATININE, CA)2020-08-23 11:45:00 Test Item Value Reference Range Interpretation Comments NA (test code = 132 mmol/L 135-145 L 3820850272) K (test code = 4.0 mmol/L 3.5-5 0839406904) CL (test code = 96 mmol/L 98-108 L 7615074852) CO2 TOTAL (test code = 33 mmol/L 23-31 H 3474792909) AGAP (test code = 2-16 0285405312) BUN (test code = 9 mg/dL 7-23 8063461743) GLUCOSE (test code = 176 mg/dL 70-110 H 3899037969) CREATININE (test code = 0.66 mg/dL 0.6-1.25 0319800813) CALCIUM (test code = 8.5 mg/dL 8.6-10.6 L 6058477791) eGFR Calculation mL/min/1.73m2 (Non-) (test code = 4969490347) eGFR Calculation mL/min/1.73m2 () (test code = 9291138405) JAMES (test code = JAMES) Association of [...] tests). Lab Interpretation Abnormal (test code = 11263-4) [facility] TylerMagnesium [id number] 11:45:00 Test Item Value Reference Range Interpretation Comments MAGNESIUM (test code = 3665441145) 2.0 mg/dL 1.7-2.4 Lab Interpretation (test code = Normal 18487-5) [facility] with [id number] 11:38:00 Test Item Value Reference Range Interpretation [...] RDW-SD (test code = 41.8 fL 38.5-51.6 10786-1) RDW-CV (test code = 14.3 % 12.1-15.4 788-0) PLT (test code = See_Comment H [Automated 777-3) message] The sy stem which generated this result transmitted reference range : 150 - 328 10*3/ ?L. The reference r torito was not used to interpret this result as normal/abnormal . MPV (test code = 8.0 fL 9.8-13 L 69892-9) NRBC/100 WBC (test See_Comment [Automat ed code = 7595978640) message] The system which generated this result transmitted reference range : 0.0 - 10.0 /100 WBCs. The refer ence range was not u sed to interpret th is result as normal/abnormal . NRBC x10^3 (test code <0.01 See_Comment [Auto mated = 1589928649) message] The s ystem which generated this result transmitted reference range : 10*3/?L. The reference range was not used to interpret this result as normal/abnormal . GRAN MAT (NEUT) % 61.5 % (test code = 770-8) IMM GRAN % (test code 2.00 % = 4280598531) LYMPH % (test code = 25.5 % 736-9) MONO % (test code = 6.3 % 5905-5) EOS % (test code = 3.7 % 713-8) BASO % (test code = 1.0 % 706-2) GRAN MAT x10^3(ANC) 5.29 10*3/uL 1.99-6.95 (test code = 6178988229) IMM GRAN x10^3 (test 0.17 10*3/uL 0-0.06 H code = 3100383134) LYMPH x10^3 (test code 2.19 10*3/uL 1.09-3.23 = 731-0) MONO x10^3 (test code 0.54 10*3/uL 0.36-1.02 = 742-7) EOS x10^3 (test code = 0.32 10*3/uL 0.06-0.53 711-2) BASO x10^3 (test code 0.09 10*3/uL 0.01-0.09 = 704-7) Lab Interpretation Abnormal (test code = 08062-6) [facility] GLUCOSE (AUTOMATED)2020-08-23 10:22:00 Test Item Value Reference Range Interpretation Comments POCT GLU (test code = 9887954415) 164 mg/dL 70-110 H Lab Interpretation (test code = Abnormal 00224-6) [facility] GLUCOSE (AUTOMATED)2020-08-23 05:56:00 Test Item Value Reference Range Interpretation Comments POCT GLU (test code = 6894743294) 242 mg/dL 70-110 H Lab Interpretation (test code = Abnormal 72373-4) [facility] GLUCOSE (AUTOMATED)2020-08-23 03:02:00 Test Item Value Reference Range Interpretation Comments POCT GLU (test code = 9176370623) 210 mg/dL 70-110 H Lab Interpretation (test code = Abnormal 96196-1) [facility] GLUCOSE (AUTOMATED)2020-08-22 23:40:00 Test Item Value Reference Range Interpretation Comments POCT GLU (test code = 7225312618) 267 mg/dL 70-110 H Lab Interpretation (test code = Abnormal 92436-7) [facility] GLUCOSE (AUTOMATED)2020-08-22 19:08:00 Test Item Value Reference Range Interpretation Comments POCT GLU (test code = 4690237939) 191 mg/dL 70-110 H Lab Interpretation (test code = Abnormal 87001-1) [facility] GLUCOSE (AUTOMATED)2020-08-22 13:50:00 Test Item Value Reference Range Interpretation Comments POCT GLU (test code = 0966828923) 174 mg/dL 70-110 H Lab Interpretation (test code = Abnormal 22110-9) [facility] [id number] 12:59:00 Test Item Value Reference Range Interpretation Comments URINE CULTURE (test No aerobic growth (< code = 630-4) 1000 CFU/mL) [facility] TylerCBC with [id number] 11:28:00 Test Item Value Reference Range Interpretation Comments WBC (test code = See_Comment [Automated 6690-2) message] The sy stem which generated this result transmitted reference range : 4.20 - 10.70 10*3/?L. The reference range was not used to interpret this result as normal/abnormal . RBC (test code = See_Comment L [Automated 189-8) message] The sy stem which generated this [...] RDW-SD (test code = 42.5 fL 38.5-51.6 14784-2) RDW-CV (test code = 14.5 % 12.1-15.4 788-0) PLT (test code = See_Comment H [Automated 777-3) message] The sy stem which generated this result transmitted reference range : 150 - 328 10*3/ ?L. The reference r torito was not used to interpret this result as normal/abnormal . MPV (test code = 8.0 fL 9.8-13 L 47355-0) NRBC/100 WBC (test See_Comment [Automat ed code = 5991735672) message] The system which generated this result transmitted reference range : 0.0 - 10.0 /100 WBCs. The refer ence range was not u sed to interpret th is result as normal/abnormal . NRBC x10^3 (test code <0.01 See_Comment [Auto mated = 3211276840) message] The s ystem which generated this result transmitted reference range : 10*3/?L. The reference range was not used to interpret this result as normal/abnormal . GRAN MAT (NEUT) % 69.1 % (test code = 770-8) IMM GRAN % (test code 2.20 % = 3301566045) LYMPH % (test code = 20.9 % 736-9) MONO % (test code = 5.8 % 5905-5) EOS % (test code = 1.0 % 713-8) BASO % (test code = 1.0 % 706-2) GRAN MAT x10^3(ANC) 6.51 10*3/uL 1.99-6.95 (test code = 6270794501) IMM GRAN x10^3 (test 0.21 10*3/uL 0-0.06 H code = 3500708230) LYMPH x10^3 (test code 1.97 10*3/uL 1.09-3.23 = 731-0) MONO x10^3 (test code 0.55 10*3/uL 0.36-1.02 = 742-7) EOS x10^3 (test code = 0.09 10*3/uL 0.06-0.53 711-2) BASO x10^3 (test code 0.09 10*3/uL 0.01-0.09 = 704-7) BASO STIPPLING (test Present A code = 703-9) BANDS (test code = Increased A 8424699732) TOXIC CHANGES (test Present A code = 803-7) Lab Interpretation Abnormal (test code = 01757-2) [facility] Metabolic Panel (NA, K, CL, CO2, GLUCOSE, BUN, CREATININE, CA)2020-08-22 11:12:00 Test Item Value Reference Range Interpretation Comments NA (test code = 135 mmol/L 135-145 7829611853) K (test code = 3.6 mmol/L 3.5-5 8616599537) CL (test code = 99 mmol/L 98-108 2507263765) CO2 TOTAL (test code = 31 mmol/L 23-31 4550040426) AGAP (test code = 2-16 8020569281) BUN (test code = 9 mg/dL 7-23 8243467730) GLUCOSE (test code = 198 mg/dL 70-110 H 5050703691) CREATININE (test code = 0.72 mg/dL 0.6-1.25 4146924723) CALCIUM (test code = 8.3 mg/dL 8.6-10.6 L 8132956947) eGFR Calculation mL/min/1.73m2 (Non-) (test code = 3657362261) eGFR Calculation mL/min/1.73m2 () (test code = 9636982126) JAMES (test code = JAMES) Association of [...] tests). Lab Interpretation Abnormal (test code = 31941-8) [facility] TylerMagnesium Hefgz1573-65-06 11:12:00 Test Item Value Reference Range Interpretation Comments MAGNESIUM (test code = 3294930634) 2.0 mg/dL 1.7-2.4 Lab Interpretation (test code = Normal 40421-6) [facility] TylerLipid Panel (Total Cholesterol, Triglycerides, HDL) - Orruejg2031-25-42 11:12:00 Test Item Value Reference Range Interpretation Comments CHOL (test code = 155 mg/dL 120-200 2864235066) HDL (test code = 42 mg/dL >40 1585364476) HDLC RATIO (test code = See_Comment [Au tomated message] 9152733872) The system [employer] generated this result transmit ronan reference range : <=5.0. The refe rence range was not u sed to interpret th is result as normal/abnormal . TRIG (test code = 186 mg/dL 30-170 H 7272013911) LDL CHOL (test code = 76 mg/dL See_Comment [Auto mated message] 36799-4) The system [employer] generated this result transmit ronan reference range : <=160. The refe rence range was not u sed to interpret th is result as normal/abnormal . VLDL (test code = 37 mg/dL 5-60 6545861806) Lab Interpretation (test Abnormal code = 82321-0) [facility] TylerHEPATIC FUNCTION PANEL (08291) (ALB,T.PRO,BILI T,BU/BC,ALT,AST,ALK PHOS)2020-08-22 11:12:00 Test Item Value Reference Range Interpretation Comments TOTAL BILI (test code = 9411640658) 0.6 mg/dL 0.1-1.1 BILI UNCON (test code = 1033686980) 0.2 mg/dL 0.1-1.1 BILI CONJ (test code = 4870422425) 0.0 mg/dL 0-0.3 T PROTEIN (test code = 2427388635) 6.0 g/dL 6.3-8.2 L ALBUMIN (test code = 6457142652) 2.8 g/dL 3.5-5 L ALK PHOS (test code = 1516296192) 222 U/L 34-122 H ALTv (test code = 1742-6) 27 U/L 5-50 AST(SGOT) (test code = 8432240592) 30 U/L 13-40 Lab Interpretation (test code = Abnormal 58226-0) [facility] GLUCOSE (AUTOMATED)2020-08-22 10:11:00 Test Item Value Reference Range Interpretation Comments POCT GLU (test code = 2235944934) 196 mg/dL 70-110 H Lab Interpretation (test code = Abnormal 44451-4) [facility] GLUCOSE (AUTOMATED)2020-08-22 07:15:00 Test Item Value Reference Range Interpretation Comments POCT GLU (test code = 1982798668) 183 mg/dL 70-110 H Lab Interpretation (test code = Abnormal 56317-4) [facility] GLUCOSE (AUTOMATED)2020-08-22 02:30:00 Test Item Value Reference Range Interpretation Comments POCT GLU (test code = 7664211007) 295 mg/dL 70-110 H Lab Interpretation (test code = Abnormal 14027-3) [facility] GLUCOSE (AUTOMATED)2020-08-21 23:46:00 Test Item Value Reference Range Interpretation Comments POCT GLU (test code = 1653461738) 258 mg/dL 70-110 H Lab Interpretation (test code = Abnormal 09449-2) [facility] TylerC-REACTIVE [id number] 18:50:00 Test Item Value Reference Range Interpretation Comments CRP (test code = 4318210212) 15.5 mg/dL <0.8 H Lab Interpretation (test code = Abnormal 58771-0) [facility] TylerPO[facility]2020-08-21 18:21:00 Test Item Value Reference Range Interpretation Comments POCT GLU (test code = 4337367294) 297 mg/dL 70-110 H Lab Interpretation (test code = Abnormal 97221-9) [facility] TylerETHANOL2020-11-09 16:24:00 Test Item Value Reference Range Interpretation Comments ALCOHOL (test code = <10 mg/dL 6945169776) JAMES (test code = Toxic Greater than or JAMES) equal to 80 mg/dL. NOTE: Whole blood values are approximately 10% to 15% lower than serum and plasma. [facility] TylerGAL[facility]CLC ONLY - URINE DRUG (IMMUNOASSAY) - 4 ER [id number] 15:36:00 Test Item Value Reference Range Interpretation Comments AMPHET (test code = Negative Negative 5540967001) Cocaine Metabolite (test Negative Negative code = 9057610744) OPIATES (test code = Presumptive Positive Negative A 6919568982) THC (test code = Negative Negative 0032050623) JAMES (test code = JAMES) Urine Drug Cutoff Ranges Amphetamine: ? 1,000 ng/mLCocaine: ? 150 ng/mLOpiates: ? 300 ng/mLCannabinoids: ?50 ng/mL The results are to be used only for medical (i.e., treatment) purposes. Unconfirmed screening results must not be used for non-medical purposes (e.g., employment testing, legal testing). Lab Interpretation (test Abnormal code = 58561-2) [facility] ONLY - SYPHILIS [id number] 15:04:00 Test Item Value Reference Range Interpretation Comments Syphilis IgG/IgM (test Non-reactive Non-reactive code = 94063-3) JAMES (test code = JAMES) Non-reactive - No serologic evidence of T. pallidum infection. Cannot exclude incubating or early syphilis. Submit a second specimen in 2-4 weeks if syphilis is clinically suspected. Equivocal - Further testing to follow. Reactive - Further testing to follow. Lab Interpretation (test Normal code = 07362-1) [facility] TylerUrinalysis2020-11-09 14:52:00 Test Item Value Reference Range Interpretation Comments APPEARANCE (test code = Clear Clear 3867653360) COLOR (test code = Yellow Yellow 7901562001) PH (test code = 4.8-8.0 1766164857) SP GRAVITY (test code = 1.003-1.030 1381383844) GLU U QUAL (test code = 500 mg/dL Normal A 6336221077) BLOOD (test code = Negative Negative 5568903959) KETONES (test code = 20 mg/dL Negative A 6902665343) PROTEIN (test code = Negative Negative 2887-8) UROBILIN (test code = Normal Normal 1977776132) BILIRUBIN (test code = Negative Negative 1532162353) NITRITE (test code = Negative Negative 3193292656) LEUK RAYN (test code = Negative Negative 6930211942) RBC/HPF (test code = <1 See_Comment [Autom ated message] 7101923535) The system [employer] generated this result transmit ronan reference range : 0 - 3 HPF. The refe rence range was not u sed to interpret th is result as normal/abnormal . WBC/HPF (test code = See_Comment [Autom ated message] 2218404531) The system [employer] generated this result transmit ronan reference range : 0 - 5 HPF. The refe rence range was not u sed to interpret th is result as normal/abnormal . BACTERIA (test code = Negative Negative 5052282743) MUCOUS (test code = Slight Negative LPF A 0526439424) Lab Interpretation (test Abnormal code = 83972-2) [facility] TylerACTIVATED PARTIAL THRMPLAS [id number] 13:45:00 Test Item Value Reference Range Interpretation Comments APTT Patient (test code = See_Comment [ Automated message] 3173-2) The system [employer] generated this result transmitted ref erence range: 26 - 36 Seconds. The re ference range was not u sed to interpret this result as normal/abnor mal. Lab Interpretation (test Normal code = 67791-9) [facility] TylerPOCT GLUCOSE (AUTOMATED)2020-08-21 13:45:00 Test Item Value Reference Range Interpretation Comments POCT GLU (test code = 9758668959) 246 mg/dL 70-110 H Lab Interpretation (test code = Abnormal 13244-5) [facility] TylerHIV 1/2 AG-AB WITH [id number] 12:32:00 Test Item Value Reference Range Interpretation Comments HIV Negative Negative Semi-quantitative (test code = 39893-5) JAMES (test code = Non-reactive for HIV-1 JAMES) antigen and HIV-1/HIV-2 antibodies. ?No laboratory evidence of HIV infection. ?Repeat in 2-4 weeks if acute HIV infection is suspected. [facility] TylerCBC WITH [id number] 12:18:00 Test Item Value Reference Range Interpretation [...] RDW-SD (test code = 44.4 fL 38.5-51.6 20549-0) RDW-CV (test code = 14.5 % 12.1-15.4 788-0) PLT (test code = See_Comment H [Automated 777-3) message] The sy stem which generated this result transmitted reference range : 150 - 328 10*3/ ?L. The reference r torito was not used to interpret this result as normal/abnormal . MPV (test code = 8.5 fL 9.8-13 L 41920-8) NRBC/100 WBC (test See_Comment [Automat ed code = 6894721377) message] The system which generated this result transmitted reference range : 0.0 - 10.0 /100 WBCs. The refer ence range was not u sed to interpret th is result as normal/abnormal . NRBC x10^3 (test code <0.01 See_Comment [Auto mated = 6247196945) message] The s ystem which generated this result transmitted reference range : 10*3/?L. The reference range was not used to interpret this result as normal/abnormal . GRAN MAT (NEUT) % 90.4 % (test code = 770-8) IMM GRAN % (test code 1.30 % = 8653859985) LYMPH % (test code = 7.1 % 736-9) MONO % (test code = 0.5 % 5905-5) EOS % (test code = 0.1 % 713-8) BASO % (test code = 0.6 % 706-2) GRAN MAT x10^3(ANC) 7.74 10*3/uL 1.99-6.95 H (test code = 3945527939) IMM GRAN x10^3 (test 0.11 10*3/uL 0-0.06 H code = 5538414722) LYMPH x10^3 (test code 0.61 10*3/uL 1.09-3.23 L = 731-0) MONO x10^3 (test code 0.04 10*3/uL 0.36-1.02 L = 742-7) EOS x10^3 (test code = <0.03 0.06-0.53 L 711-2) BASO x10^3 (test code 0.05 10*3/uL 0.01-0.09 = 704-7) POLYCHROMASIA (test 2+ See_Comment [Automa ronan code = 08018-3) message] The system which generated this result transmitted reference range : 2+. The referen ce range was not u sed to interpret th is result as normal/abnormal . BANDS (test code = Increased A 0453974879) Lab Interpretation Abnormal (test code = 62977-6) [facility] TylerPROCALCITONIN2020-11-09 11:48:00 Test Item Value Reference Range Interpretation Comments Procalcitonin (test 0.36 ng/mL <0.07 H code = 2038590641) JAMES (test code = JAMES) INTERPRETATION OF [...] biotics/default.asp Lab Interpretation Abnormal (test code = 12190-1) [facility] TylerLAILATE [id number] 10:53:00 Test Item Value Reference Range Interpretation Comments LDH (test code = 1113035821) 351 U/L 300-600 Lab Interpretation (test code = Normal 51949-6) [facility] TylerSEDIMENTATION [id number] 10:07:00 Test Item Value Reference Range Interpretation Comments ESR (test code = See_Comment H [Automated message] 2082601167) The system [employer] generated this result transmitted ref erence range: 0 - 10 m m/HR. The reference r torito was not used to interpret this result as normal/abnor mal. Lab Interpretation (test Abnormal code = 70976-9) [facility] TylerPOCT GLUCOSE (AUTOMATED)2020-08-21 09:45:00 Test Item Value Reference Range Interpretation Comments POCT GLU (test code = 8458257060) 287 mg/dL 70-110 H Lab Interpretation (test code = Abnormal 76128-4) [facility] TylerGlycosylated Hemoglobin (A1C)2020-08-21 09:29:00 Test Item Value Reference Range Interpretation Comments HGB A1C (test code = 4548-4) 9.8 % 4-6 H Lab Interpretation (test code = Abnormal 77219-8) [facility] TylerCOVID-19 (ID NOW RAPID TESTING)2020-08-21 09:13:00 Test Item Value Reference Range Interpretation Comments SARS-CoV-2 Rapid ID NOW Not Detected Not Detected (test code = 44064-8) JAMES (test code = JAMES) ID NOW COVID-19 Assay is an isothermal nucleic acid amplification test intended for the qualitative detection of nucleic acid from SARS-CoV-2 viral RNA in nasopharyngeal (ENERGY SYSTEMS ENGINEER) specimens. It is used under Emergency [...] indicated. Lab Interpretation Normal (test code = 60447-2) [facility] TylerProthrombin Time / [id number] 08:59:00 Test Item Value Reference Range Interpretation Comments PROTIME PATIENT (test See_Comment H [Auto mated message] code = 5964-2) The system [employer] generated this result transmitted ref erence range: 10.1 - 1 2.6 Seconds. The reference range was not used to int erpret this result as normal/abnormal . INR (test code = 6301-6) Nor mal INR <1.1; Warfarin Therap eutic range 2.0 to 3. 0 or 2.5 to 3.5, dep ending upon the indica tions. Lab Interpretation (test Abnormal code = 26225-5) [facility]PTT2020-11-09 08:59:00 Test Item Value Reference Range Interpretation Comments APTT Patient (test code = See_Comment [ Automated message] 3173-2) The system [employer] generated this result transmitted ref erence range: 26 - 36 Seconds. The re ference range was not u sed to interpret this result as normal/abnor mal. Lab Interpretation (test Normal code = 32955-9) [facility] TylerBASI METABOLIC PANEL (NA, K, CL, CO2, GLUCOSE, BUN, CREATININE, CA)2020-08-21 08:52:00 Test Item Value Reference Range Interpretation Comments NA (test code = 136 mmol/L 135-145 2379665638) K (test code = 4.3 mmol/L 3.5-5 3321072778) CL (test code = 104 mmol/L 98-108 1719448326) CO2 TOTAL (test code = 24 mmol/L 23-31 6479522866) AGAP (test code = 2-16 0805808741) BUN (test code = 8 mg/dL 7-23 8607207143) GLUCOSE (test code = 308 mg/dL 70-110 H 8965268107) CREATININE (test code = 0.72 mg/dL 0.6-1.25 5963118650) CALCIUM (test code = 7.8 mg/dL 8.6-10.6 L 4579151298) eGFR Calculation mL/min/1.73m2 (Non-) (test code = 4736607921) eGFR Calculation mL/min/1.73m2 () (test code = 6652831755) JAMES (test code = JAMES) Association of [...] tests). Lab Interpretation Abnormal (test code = 05434-2) [facility] TylerHEPATIC FUNCTION PANEL (02913) (ALB,T.PRO,BILI T,BU/BC,ALT,AST,ALK PHOS)2020-08-21 08:52:00 Test Item Value Reference Range Interpretation Comments TOTAL BILI (test code = 0148633272) 0.8 mg/dL 0.1-1.1 BILI UNCON (test code = 3575975658) 0.3 mg/dL 0.1-1.1 BILI CONJ (test code = 8248716894) 0.0 mg/dL 0-0.3 T PROTEIN (test code = 7946054595) 5.7 g/dL 6.3-8.2 L ALBUMIN (test code = 5700647046) 2.7 g/dL 3.5-5 L ALK PHOS (test code = 0500564061) 245 U/L 34-122 H ALTv (test code = 1742-6) 37 U/L 5-50 AST(SGOT) (test code = 0481650986) 43 U/L 13-40 H Lab Interpretation (test code = Abnormal 73897-5) [facility]
[2022-11-12] MEDS ORDERED: DIAZEPAM 5 MG TABLET ONE (20:26)
[2022-11-12] MEDS ORDERED: KETOROLAC 30 MG/ML INJ ONE (20:26)
--- NOTE | 2022-11-12 20:30 | EDPHYS ---
Physician Documentation [facility] Name: Kiel Ngo Age: 72 yrs Sex: Male : 1950 Arrival Date: 11/12/2022 Time: 19:23 Bed 15 Private MD: ED Physician Stu Banerjee HPI: 11/12 19:46 This 72 yrs old Male presents to ER via Unassigned with complaints of right chetan hip pain, chronic. 19:46 The patient or guardian reports decreased range of motion, pain. that occurred at an [facility] unknown site. The complaints affect the right inner thigh and right upper thigh. Onset: The symptoms/episode began/occurred 2 day(s) ago. Modifying factors: The symptoms are alleviated by remaining still, the symptoms are aggravated by any movement, flexion, internal rotation. Associated signs and symptoms: Pertinent positives: None. Pertinent negatives: None. Severity of symptoms: At their worst the symptoms were moderate, in the emergency department the symptoms are unchanged. The patient has experienced similar episodes in the past, chronically. Historical: - Allergies: 20:34 Demerol; aa9 20:34 metformin; aa9 20:34 Morphine; aa9 - Home Meds: 20:34 hydromorphone 4 mg Oral tab 1 tab three times a day [Active]; Klonopin 2 mg Oral TbDi 2 aa9 tabs 4 times a day [Active]; - PMHx: 20:34 Atrial fibrillation; chronic back pain; Chronic right leg pain; neuropathy; aa9 - PSHx: 20:34 back sx; PANCREAS SX; R. Ankle SX; aa9 - Immunization history:: Adult Immunizations unknown. - Family history:: not pertinent. - Social history:: Smoking status: unknown. ROS: 19:46 Constitutional: Negative for fever, chills, and weight loss, Eyes: Negative for injury, chetan pain, redness, and discharge, ENT: Negative for injury, pain, and discharge, Neck: Negative for injury, pain, and swelling, Cardiovascular: Negative for chest pain, palpitations, and edema, Respiratory: Negative for shortness of breath, cough, wheezing, and pleuritic chest pain, Abdomen/GI: Negative for abdominal pain, nausea, vomiting, diarrhea, and constipation, Back: Negative for injury and pain, : Negative for injury, bleeding, discharge, and swelling, Skin: Negative for injury, rash, and discoloration, Neuro: Negative for headache, weakness, numbness, tingling, and seizure, Psych: Negative for depression, anxiety, suicide ideation, homicidal ideation, and hallucinations, Allergy/Immunology: Negative for hives, rash, and allergies, Endocrine: Negative for neck swelling, polydipsia, polyuria, polyphagia, and marked weight changes, Hematologic/Lymphatic: Negative for swollen nodes, abnormal bleeding, and unusual bruising. 19:46 MS/extremity: Positive for decreased range of motion, pain, swelling, tenderness, of the right hip and right upper thigh. Exam: 19:46 Constitutional: This is a well developed, well nourished patient who is awake, alert, chetan and in no acute distress. Head/Face: Normocephalic, atraumatic. Eyes: Pupils equal round and reactive to light, extra-ocular motions intact. Lids and lashes normal. Conjunctiva and sclera are non-icteric and not injected. Cornea within normal limits. Periorbital areas with no swelling, redness, or edema. ENT: Nares patent. No nasal discharge, no septal abnormalities noted. Tympanic membranes are normal and external auditory canals are clear. Oropharynx with no redness, swelling, or masses, exudates, or evidence of obstruction, uvula midline. Mucous membranes moist. Neck: Trachea midline, no thyromegaly or masses palpated, and no cervical lymphadenopathy. Supple, full range of motion without nuchal rigidity, or vertebral point tenderness. No Meningismus. Chest/axilla: Normal chest wall appearance and motion. Nontender with no deformity. No lesions are appreciated. Cardiovascular: Regular rate and rhythm with a normal S1 and S2. No gallops, murmurs, or rubs. Normal PMI, no JVD. No pulse deficits. Respiratory: Lungs have equal breath sounds bilaterally, clear to auscultation and percussion. No rales, rhonchi or wheezes noted. No increased work of breathing, no retractions or nasal flaring. Abdomen/GI: Soft, non-tender, with normal bowel sounds. No distension or tympany. No guarding or rebound. No evidence of tenderness throughout. Back: No spinal tenderness. No costovertebral tenderness. Full range of motion. Male : Normal genitalia with no discharge or lesions. Skin: Warm, dry with normal turgor. Normal color with no rashes, no lesions, and no evidence of cellulitis. Neuro: Awake and alert, GCS 15, oriented to person, place, time, and situation. Cranial nerves II-XII grossly intact. Motor strength 5/5 in all extremities. Sensory grossly intact. Cerebellar exam normal. Normal gait. Psych: Awake, alert, with orientation to person, place and time. Behavior, mood, and affect are within normal limits. 19:46 Musculoskeletal/extremity: Extremities: grossly normal except: noted in the right inner thigh and right upper thigh: decreased ROM, pain, ROM: limited active range of motion, limited passive range of motion, limited active range of motion due to pain, limited passive range of motion due to pain, Circulation is intact in all extremities. Sensation intact. DVT Exam: no pain, no tenderness, negative Homans' sign noted on exam, no appreciated bluish discoloration, no erythema, no increased warmth, swelling. Vital Signs: 20:32 BP 167 / 96; Pulse 64; Resp 19 S; Temp 98.3(O); Pulse Ox 95% on R/A; Weight 83.91 kg aa9 (R); Height 5 ft. 11 in. (180.34 cm) (R); Pain 10/10; 21:03 BP 147 / 90; Pulse 72; Resp 20 S; Pulse Ox 96% on R/A; aa9 20:32 Body Mass Index 25.80 (83.91 kg, 180.34 cm) aa9 MDM: 19:25 Patient medically screened. [facility] 19:51 Differential diagnosis: hip fracture, intertrochanteric fracture, femoral neck chetan fracture, femoral shaft fracture, bursitis, arthritis, strain. Data reviewed: vital signs, nurses notes, lab test result(s), reviewed old labs, radiologic studies, ultrasound. Consideration of Admission/Observation Escalation of care including admission/observation considered. I considered the following discharge prescriptions or medication management in the emergency department Medications were administered in the Emergency Department. See MAR. Test considered but Not performed: Labs: no labs. Care significantly affected by the following chronic conditions: Hypertension. 11/12 19:41 Order name: US Extremity Venous W Compression Otis chetan Administered Medications: 20:35 Drug: Valium (diazepam) 10 mg Route: PO; aa9 21:26 Follow up: Response: No adverse reaction aa9 20:35 Drug: Ketorolac 30 mg Route: IM; Site: left deltoid; aa9 21:26 Follow up: Response: No adverse reaction aa9 21:26 Drug: Phenergan (promethazine) 25 mg Route: IM; Site: left deltoid; aa9 21:26 Follow up: Response: No adverse reaction aa9 Disposition Summary: 11/12/22 20:29 Discharge Ordered Location: Home chetan Problem: new chetan Symptoms: have improved chetan Condition: Stable chetan Diagnosis - Chronic pain, not elsewhere classified - right hip chetan - Unspecified symptoms and signs involving the musculoskeletal system chetan - Edema, unspecified chetan Followup: chetan - With: Private Physician - When: 2 - 3 days - Reason: Recheck today's complaints, Continuance of care, Re-evaluation by your physician Followup: chetan - With: - When: 2 - 3 days - Reason: Recheck today's complaints, Re-evaluation by your physician Discharge Instructions: - Discharge Summary Sheet chetan - Chronic Pain, Adult chetan - Edema chetan - Musculoskeletal Pain chetan - Edema, Cpbi-hv-Rewd chetan - Musculoskeletal Ultrasound chetan Forms: - Medication Reconciliation Form chetan - Thank You Letter chetan - Antibiotic Education chetan - Prescription Opioid Use chetan Signatures: Dispatcher [employer] EDStu Allen MD MD cha Avalos, Aylin, RN RN aa9
--- NOTE | 2022-11-12 20:30 | ER ---
Nurse's Notes [facility] Name: Kiel Ngo Age: 72 yrs Sex: Male : 1950 Arrival Date: 11/12/2022 Time: 19:23 Bed 15 Private MD: Diagnosis: Chronic pain, not elsewhere classified-right hip;Unspecified symptoms and signs involving the musculoskeletal system;Edema, unspecified Presentation: 11/12 20:15 Chief complaint: EMS states: He is c/o chronic pain, refused Toradol en route. aa9 Coronavirus screen:. Ebola Screen: No symptoms or risks identified at this time. Initial Sepsis Screen: Does the patient meet any 2 criteria? No. Patient's initial sepsis screen is negative. Does the patient have a suspected source of infection? No. Patient's initial sepsis screen is negative. Risk Assessment: Do you want to hurt yourself or someone else? Patient reports no desire to harm self or others. Onset of symptoms was November 12, 2022. 20:15 Method Of Arrival: EMS: [facility] aa9 20:15 Acuity: JOZEF 4 aa9 Triage Assessment: 20:17 General: Appears uncomfortable, unkempt, Behavior is calm, cooperative. Pain: Pain aa9 currently is 8 out of 10 on a pain scale. Neuro: Level of Consciousness is awake, alert, obeys commands, Oriented to person, place, time, situation. Cardiovascular: Patient's skin is warm and dry. Respiratory: Airway is patent Respiratory effort is even, unlabored. GI: No deficits noted. : No deficits noted. Historical: - Allergies: 20:34 Demerol; aa9 20:34 metformin; aa9 20:34 Morphine; aa9 - Home Meds: 20:34 hydromorphone 4 mg Oral tab 1 tab three times a day [Active]; Klonopin 2 mg Oral TbDi 2 aa9 tabs 4 times a day [Active]; - PMHx: 20:34 Atrial fibrillation; chronic back pain; Chronic right leg pain; neuropathy; aa9 - PSHx: 20:34 back sx; PANCREAS SX; R. Ankle SX; aa9 - Immunization history:: Adult Immunizations unknown. - Family history:: not pertinent. - Social history:: Smoking status: unknown. Screenin:16 [facility] ED Fall Risk Assessment (Adult) History of falling in the last 3 months, aa9 including since admission No falls in past 3 months (0 pts) Confusion or Disorientation No (0 pts) Intoxicated or Sedated No (0 pts) Impaired Gait No (0 pts) Mobility Assist Device Used No (0 pt) Altered Elimination No (0 pt) Score/Fall Risk Level 0 - 2 = Low Risk. Abuse screen: Denies threats or abuse. Denies injuries from another. Nutritional screening: No deficits noted. Tuberculosis screening: No symptoms or risk factors identified. Assessment: 20:33 General: Appears comfortable, Behavior is calm, cooperative. Pain: Complains of pain in aa9 right gluteus shaista and right leg Pain currently is 10 out of 10 on a pain scale. Quality of pain is described as aching. Neuro: Level of Consciousness is awake, alert, obeys commands, Oriented to person, place, time, situation. Respiratory: Airway is patent Respiratory effort is even, unlabored. 20:36 Reassessment: c/o nausea notified Chriss VILLAREAL. aa9 Vital Signs: 20:32 BP 167 / 96; Pulse 64; Resp 19 S; Temp 98.3(O); Pulse Ox 95% on R/A; Weight 83.91 kg aa9 (R); Height 5 ft. 11 in. (180.34 cm) (R); Pain 10/10; 21:03 BP 147 / 90; Pulse 72; Resp 20 S; Pulse Ox 96% on R/A; aa9 20:32 Body Mass Index 25.80 (83.91 kg, 180.34 cm) aa9 ED Course: 19:23 Patient arrived in ED. mw2 19:24 Stu Banerjee MD is Attending Physician. chetan 20:16 Triage completed. aa9 20:17 Patient has correct armband on for positive identification. Bed in low position. Side aa9 rails up X2. 20:29 US Extremity Venous W Compression Otis In Process Unspecified. EDMS 20:29 Madhu Francois DO is Referral Physician. chetan 21:04 Arm band placed on. aa9 21:04 No provider procedures requiring assistance completed. Patient did not have IV access aa9 during this emergency room visit. Administered Medications: 20:35 Drug: Valium (diazepam) 10 mg Route: PO; aa9 21:26 Follow up: Response: No adverse reaction aa9 20:35 Drug: Ketorolac 30 mg Route: IM; Site: left deltoid; aa9 21:26 Follow up: Response: No adverse reaction aa9 21:26 Drug: Phenergan (promethazine) 25 mg Route: IM; Site: left deltoid; aa9 21:26 Follow up: Response: No adverse reaction aa9 Medication: 20:35 VIS not applicable for this client. aa9 Outcome: 20:29 Discharge ordered by MD. benton 21:04 Condition: stable aa9 21:04 Discharge instructions given to patient, Instructed on discharge instructions, follow up and referral plans. Demonstrated understanding of instructions, follow-up care. 21:35 Discharged to home via ambulance. aa9 21:35 Patient left the ED. aa9 Signatures: Dispatcher [employer] Stu Vale MD MD cha Gatti, MyKena mw2 Dayana Kingston, RN RN aa9
--- NOTE | 2022-11-12 20:33 | RAD REPORT ---
EXAM DESCRIPTION: US - Extrem Venous W Compress Otis - 11/12/2022 8:27 pm CLINICAL HISTORY: Pain Bilateral leg edema and swelling. COMPARISON: Extremity Venous [facility] dated 01/08/2022 TECHNIQUE: Real-time sonographic interrogation of the left and right lower extremity deep venous sys tems was performed. FINDINGS: Normal compressibility, flow augmentation, phasic flow and spontaneous flow is identified in both the left and right lower extremity deep venous systems. IMPRESSION: No sonographic evidence of left or right lower extremity deep venous thrombosis.
[2022-11-12] MEDS ORDERED: PROMETHAZINE INJ 25 MG/ML AMP ONE (21:26)
[2022-11-12 21:39] VITALS: TEMP 98.3
[2022-11-12 21:41] VITALS: BP 147/90; O2SAT 96
== END 2022-11-12 21:35 | disposition home or self-care (01) ==
LOC: ER 19:21
DX: M25.551 Pain in right hip (principal); R29.91 Unspecified symptoms and signs involving the musculoskeletal system; R60.9 Edema, unspecified; I48.91 Unspecified atrial fibrillation; Z88.5 Allergy status to narcotic agent; Z88.8 Allergy status to other drugs, medicaments and biological substances
CPT/HCPCS: 93970; J2550

== ENCOUNTER 2022-11-30 09:14 | Emergency (ER) | payer OTHER ==
--- OUTSIDE RECORDS SUMMARY | 2022-11-30 09:23 | XMS REPORT | Continuity of Care Document ---
:1950 Author Organization [facility] t Address [address] [place] [address] Care Team Providers Name Role Phone CALVIN WORLEY Primary Care Physician Unavailable [id number] Attending Clinician Unavailable KELLY WASHINGTON Attending Clinician Unavailable Zion Mathew Anavella Attending Clinician Unava ilable SWEETIE STOUT Attending Clinician Unavailable Sweetie Stout MD Attending Clinician ADRIANA HAINES Attending Clinician Unavailable Calvin Worley MD Attending Clinician Ruchi Peters RN Attending Clinician Paco Lacey DO Attending Clinician Hunter VILLAREAL, Vika Fernando Attending Clinician Alvarez Rowe MD Attending Clinician ALVAREZ ROWE Attending Clinician Unavailable PACO LACEY Attending Clinician Unavailable Doctor Unassigned, [place] Attending Clinician Unavailable Wilder VILLAREAL, Angi K.H. Attending Clinician Jl Mccabe MD Attending Clinician Kelly Washington MD Attending Clinician [phone] Mukul Gallardo MD Attending Clinician [id number] Admitting Clinician Unavailable MUKUL GALLARDO Admitting Clinician Unavailable Angle Mathew, Anav Admitting Clinician Unavailable Hunter VILLAREAL, Vika G Admitting Clinician VIKA HARRISON Admitting Clinician Unavailable Mukul Gallardo MD Admitting Clinician Payers Payer Name Policy Type Policy Number Effective Date Expiration Date [place] MEDICARE PART A [id number] 2007 \\T\\ B 00:00:00 [employer] INDEMNITY [id number] 2016 00:00:00 MCR MCR [id number] MEDICARE PART A [id number] 2014 \\T\\ B - MEDICARE 00:00:00 INDEMNITY/TRADITIO [id number] NAL CHOICE - [employer] 00:00:00 Problems Condition Condition Condition Status Onset Resolution Last Treating Co mments Source Name Details Category Date Date Treatment Clinician Date Elevated Elevated Disease Active 2020-0 Unive rs LFTs LFTs 2-05 ity of 00:00: [place] 00 Medical Branch Abnormal Abnormal Disease Active 2020-0 Unive rs CXR CXR 2-05 ity of 00:00: Medical Branch Elevated Elevated Disease Active 2020-0 Unive rs LFTs LFTs 2-05 ity of 00:00: 00 Medical Branch Cellulitis Cellulitis Disease Active 2020-0 U nivers 2-04 ity of 00:00: [place] 00 Medical Branch Rash Rash Disease Active 2019- Univers 1-09 ity of 00:00: 00 Medical Branch Allergies, Adverse Reactions, Alerts Allergy Allergy Status Severity Reaction(s) Onset Inactive Treating Comm ents Source Name Type Date Date Clinician Bradley Propensi Active Rash 2019- Univers ty to 1-10 ity of adverse 00:00: [place] reaction 00 Medical s Branch PEACH DRUG Active Rash 2019- Univers INGREDI 1-10 ity of 00:00: 00 Medical Branch Lidocain Drug Active Itching 2019-10 Univers e Allergy -09 ity of 00:00: [place] 00 Medical Branch LIDOCAIN DRUG Active ITCHING 2019-10 Univers E INGREDI 10-21 ity of 00:00: [place] 00 Medical Branch [...] Univers EFREN INGREDI 3-16 ity of 00:00: [place] 00 Medical Branch METFORMI DRUG Active ITCHING Univers N INGREDI 3-16 ity of 00:00: [place] 00 Medical Branch Social History Social Habit Start Date Stop Date Quantity Comments Source Exposure to Not sure [place] [facility] SARS-CoV-2 [place] [facility] (event) Branch History of Chews Tobacco University of tobacco use [place] [facility] History SDOH 2020-11-17 2020-11-17 5 University o f Financial 00:00:00 00:00:00 [place] [facility] History SDOH Food 2020-11-17 2020-11-17 1 Univers ity of Worry 00:00:00 00:00:00 [place] [facility] History SDOH Food 2020-11-17 2020-11-17 1 Univers ity of Scarcity 00:00:00 00:00:00 [place] [facility] History SDOH 2020-11-17 2020-11-17 1 University o f Transport Med 00:00:00 00:00:00 [place] Medic al Branch History SDOH 2020-11-17 2020-11-17 1 University o f Transport Non-Med 00:00:00 00:00:00 [place] M edical [facility] Education 2020-11-16 2020-11-16 21 [place] 00:00:00 00:00:00 [facility] Branch Alcohol intake 2020-11-16 2020-11-16 Ex-drinker [place] 00:00:00 00:00:00 (finding) [facility] Tobacco use and 2020-08-21 2020-08-21 Former user Universi ty of exposure 00:00:00 00:00:00 [facility] Tobacco Comment 2020-08-21 2020-08-21 quit 10 years Univer sity of 00:00:00 00:00:00 ago, started in [place] Med ica 2nd year of [facility] (~40 years) Alcohol Comment 2020-08-21 2020-08-21 Used to have 2-3 Uni versity of 00:00:00 00:00:00 six-packs of [place] Medica l beer daily x 20 Branch years, quit 2005 History [facility] 2020-08-21 2020-08-21 99 University o f Alcohol Frequency 00:00:00 00:00:00 [place] M edical Branch History [facility] 2020-08-21 2020-08-21 99 University o f Alcohol Std 00:00:00 00:00:00 [place] Medical Drinks Branch History [facility] 2020-08-21 2020-08-21 99 University o f Alcohol Binge 00:00:00 00:00:00 [facility] [place] [facility] Sex Ass[birth year] Universit y of 00:00:00 00:00:00 [facility] Smoking Status Start Date Stop Date Source Never smoker [facility] Medications Ordered Filled Start Stop Current Ordering Indication Dosage Frequency Signature Comments Components Source Medication Medication Date Date Medication? Clinician (SIG) Name Name FENTanyl PF 2020-10- No 100ug 100 mcg, Univers (SUBLIMAZE 1- 11-10 Slow IV ity o f (PF)) 13:30: [...] at 0845, Until Discontinu ed, Routine amLODIPine 0 Yes [id number] 10mg Take 1 Univers 10 mg 3-07 tablet by ity of tablet 00:00: mouth [place] 00 daily. Medical Branch clotrimazol 2020-0 Yes [id number] Apply to Univers e 1 % 3-07 face/ears, ity of topical 00:00: armpits, [place] cream 00 pannus and Medical back/any Branch other rash twice a day fluocinonid 2020-0 Yes [id number] Apply to Univers e 0.05 % 3-07 scalp ity of solution 00:00: twice a [place] 00 day Medical Branch triamcinolo 2020-0 Yes [id number] Apply to Univers ne 3-07 back, ity of acetonide 00:00: armpits [place] 0.1 % cream 00 and other Med ical affected Branch areas twice daily, please mix with clotrimazo le hydrOXYzine 2020-0 Yes [id number] 10mg Take 1 Univers 10 mg 3-07 tablet by ity of tablet 00:00: mouth 2 00 (two) Medical times Branch daily. amLODIPine 2020-0 Yes [id number] 10mg Take 1 Univers 10 mg 3-07 tablet by ity of tablet 00:00: mouth [place] 00 daily. Medical Branch clotrimazol 2020-0 Yes [id number] Apply to Univers e 1 % 3-07 face/ears, ity of topical 00:00: armpits, [place] cream 00 pannus and Medical back/any Branch other rash twice a day fluocinonid 2020-0 Yes [id number] Apply to Univers e 0.05 % 3-07 scalp ity of solution 00:00: twice a [place] 00 day Medical Branch triamcinolo 2020-0 Yes [id number] Apply to Univers ne 3-07 back, ity of acetonide 00:00: armpits [place] 0.1 % cream 00 and other Med ical affected Branch areas twice daily, please mix with clotrimazo le hydrOXYzine 2020-0 Yes [id number] 10mg Take 1 Univers 10 mg 3-07 tablet by ity of tablet 00:00: mouth 2 [place] 00 (two) Medical times Branch daily. amLODIPine 2020-0 Yes [id number] 10mg Take 1 Univers 10 mg 3-07 tablet by ity of tablet 00:00: mouth [place] 00 daily. Medical Branch clotrimazol 2020-0 Yes [id number] Apply to Univers e 1 % 3-07 face/ears, ity of topical 00:00: armpits, [place] cream 00 pannus and Medical back/any Branch other rash twice a day fluocinonid 2020-0 Yes [id number] Apply to Univers e 0.05 % 3-07 scalp ity of solution 00:00: twice a day Medical Branch triamcinolo 0 Yes [id number] Apply to Univers ne 3-07 back, ity of acetonide 00:00: armpits [place] 0.1 % cream 00 and other Med ical affected Branch areas twice daily, please mix with clotrimazo le hydrOXYzine Yes [id number] 10mg Take 1 Univers 10 mg 3- tablet by ity of tablet 00:00: mouth 2 (two) Medical times Branch daily. amLODIPine Yes [id number] 10mg Take 1 Univers 10 mg 3-07 tablet by ity of tablet 00:00: mouth 00 daily. Medical Branch clotrimazol 0 Yes [id number] Apply to Univers e 1 % 3-07 face/ears, ity of topical 00:00: armpits, [place] cream 00 pannus and Medical back/any Branch other rash twice a day fluocinonid 2020-0 Yes [id number] Apply to Univers e 0.05 % 3-07 scalp ity of solution 00:00: twice a day Medical Branch triamcinolo 0 Yes [id number] Apply to Univers ne 3-07 back, ity of acetonide 00:00: armpits [place] 0.1 % cream 00 and other Med ical affected Branch areas twice daily, please mix with clotrimazo le hydrOXYzine Yes [id number] 10mg Take 1 Univers 10 mg 3-07 tablet by ity of tablet 00:00: mouth 2 00 (two) Medical times Branch daily. cephALEXin 2020-2020- No [id number] 500mg Take 1 Univers 500 mg 12-17- capsule by ity of capsule 00:00: 05:59 mouth [place] 00 :00 every 6 Medical (six) Branch hours for 3 days. cephALEXin 2020-2020- No [id number] 500mg Take 1 Univers 500 mg 12-17 capsule by ity of capsule 00:00: 05:59 mouth [place] 00 :00 every 6 Medical (six) Branch hours for 3 days. hydrOXYzine 2020- No [id number] 10mg Take 1 Univers 10 mg 12-17 tablet by ity of tablet 00:00: 00:00 [...] 1,000 mL 00 :00 IV Medical Infusion, [place] ONCE, 1 dose, 12/15/20 at 1900, Routine iohexol 2020- No 100mL 100 mL, Unive rs (OMNIPAQUE 12-1505 Intravenou it y of 350 22:24: 22:24 s, ONCE, 1 [place] BULK-100 00 :00 dose, Fri Medica l mL) 12/15/20 at Branch injection 1645, 100 mL Routine cephALEXin No 500mg 500 mg, Un toi (KEFLEX) [...] days NaCl 0.9% No 500mL at 999 [facility] ers (NS) bolus 12-15-05 mL/hr, 500 it y of infusion 16:00: 15:26 mL, IV [place] 500 mL 00 :00 Piggyback, Medical ONCE, 1 Branch dose, Fri12/15/20 at 1000, STAT HYDROmorpho Yes 4mg 4 mg, Unive rs ne 05 Oral, BID, ity of (DILAUDID) 15:30: First dose [place] tablet 4 mg 00 (after Medica l last Branch modificati on) on Fri12/15/20 at 0930, Until Discontinu ed, Routine amLODIPine 2020- No [id number] 10mg Take 1 Univers 10 mg 12-15-07 tablet by ity of tablet 00:00: 00:00 mouth [place] 00 :00 daily. Medical Branch HYDROmorpho 2020- No 1mg 1 mg, Univ ers ne 3 03-05 Oral, ity of (DILAUDID) 17:35: 15:18 Q6HPRN, [place] tablet 1 mg 30 :06 Starting Medi [facility] 12/14/20 Branch at 1135, Until Fri12/15/20 at 0918, Routine, Pain (scale 7-10) hydrOXYzine Yes 10mg 10 mg, Univ ers (ATARAX) 304 Oral, BID, ity o f tablet 10 17:30: First dose [place] mg 00 on [facility] 12/14/20 at Branch 1130, Until Discontinu ed, Routine lisinopriL Yes 5mg 5 mg, Univer s (PRINIVIL,Z 12-14 Oral, ity of ESTRIL) 17:30: DAILY, [place] tablet 5 mg 00 First dose Me dical on [place] Branch 12/14/20 at 1130, Until Discontinu ed, Routine triamcinolo 2020- No [id number] Apply to Univers ne 12-14 back, ity of acetonide 00:00: 00:00 armpits [place] 0.1 % cream 00 :00 and other Med ical affected Branch areas twice daily, please mix with clotrimazo le clotrimazol 2020- No [id number] Apply to Univers e 1 % 12-14 face/ears, ity of topical 00:00: 00:00 armpits, [place] cream 00 :00 pannus and Medical back/any Branch other rash twice a day fluocinonid 2020- No [id number] Apply to Univers e 0.05 % 12-14 scalp ity of solution 00:00: 00:00 twice a [place] 00 :00 day Medical Branch hydrOXYzine 2020- No [id number] 10mg Take 1 Univers 10 mg 12-14 tablet by ity of tablet 00:00: 00:00 mouth 2 [place] 00 :00 (two) Medical times Branch daily. metoclopram 2020- No 10mg 10 mg, IV Univers efren HCl 12-14 Piggyback, ity o f (REGLAN) 10 00:00: 18:22 Q6H, First [place] mg in NaCl 00 :41 dose on Medica l 0.9% (NS) 12/13/20 Bran ch piggyback at 1800, Until Discontinu ed, 50 mL labetaloL 2020- No 20mg 20 mg, Unive rs (NORMODYNE) 12-13 Slow IV ity of injection 21:57: 23:52 Push, [place] 20 mg 00 :00 ONCE, 1 Medical dose, Wed Branch 12/13/20 at 1600, Routine amLODIPine Yes 10mg 10 mg, Unive rs (NORVASC) 12-13 Oral, ity of tablet 10 21:00: DAILY, [place] mg 00 First dose Medical on Fri Branch 12/13/20 at 1500, Until Discontinu ed, Routine proMETHazin No 25mg 25 mg, IV Univers e 12-13 Piggyback, ity of (PHENERGAN) 14:22: 21:56 Q4HPRN, [place] 25 mg in 04 :32 Starting Medical NaCl 0.9% Fri12/13/20 Bran ch (NS) 50 mL at 0822, IV Until Fri piggyback 12/13/20 at 1556, Routine, Nausea and Vomiting (N/V), N/V unresponsi ve to Ondansetro n ondansetron Yes 4mg 4 mg, Slow Univers (ZOFRAN -03 IV Push, ity of (PF)) 10:07: Q6HPRN, [place] injection 4 28 Starting Medi jose c mg Fri12/13/20 Branch at 0407, Until Discontinu ed, Routine, Nausea and Vomiting (N/V) ondansetron 2020- No 4mg 4 mg, Slow Univers (ZOFRAN 03 03-03 IV Push, ity of (PF)) 04:55: 05:44 ONCE, 1 [place] injection 4 00 :00 dose, [facility] ical mg 12/12/20 at Branch 2300, Routine traMADoL 2020- No 50mg 50 mg, Univer s (ULTRAM) 12-13 Oral, ity of tablet 50 03:45: 03:34 ONCE, 1 [place] mg 00 :00 dose, [facility] 12/12/20 at Branch 2145, Routine insulin Yes 15U 15 Units, Unive rs glargine 12-12 Subcutaneo ity o f (LANTUS 15:00: us, DAILY, [place] U-100) 00 First dose Medical injection on Fri 15 Units 12/12/20 at 0900, Until Discontinu ed hydrOXYzine No 10mg 10 mg, Uni vers (ATARAX) 12-12 03-02 Oral, ity of tablet 10 08:15: 07:33 ONCE, 1 [place] mg 00 :00 dose, [facility] 12/12/20 at Branch 0215, Routine mirtazapine 0 Yes 7.5mg 7.5 mg, Un toi (REMERON) 3-02 Oral, QHS, ity of tablet 7.5 03:00: First dose [place] mg 00 on Fri Medical 12/11/20 at Branch 2100, Until Discontinu ed, Routine venlafaxine 0 Yes 300mg 300 mg, Un toi XR (EFFEXOR 3-02 Oral, QHS, it y of XR) 24 hr 03:00: First dose [place] capsule 300 00 on [facility] Medica l mg 12/11/20 at Branch 2100, Until Discontinu ed, Routine fluocinonid 0 Yes Topical, Un toi e (LIDEX) 3 [...] mg 00 First dose Medical on Fri [place] 12/11/20 at 1700, Until Discontinu ed, Routine clotrimazol 0 Yes Topical, Un toi e 3- BID, First ity of (LOTRIMIN) 19:15: dose on [place] 1 % topical Fri12/11/20 Me dical cream at 1315, Branch Until Discontinu ed, Routine hydrocortis 0 Yes Topical Uni vers one 2.5 % 12-11 (Apply To ity o f cream 19:15: Affected [place] 00 Areas), Medical BID, First Branch dose on Fri12/11/20 at 1315, Until Discontinu ed, Routine triamcinolo Yes Topical, Un toi ne 12-11 BID, First ity of acetonide 19:00: dose [place] (TRIDERM) 00 (after Medical 0.1 % cream last Branch modificati on) on Fri12/11/20 at 1300, Until Discontinu ed, Routine ceFAZolin 2020- No 1000mg 1,000 mg, [place] [facility] (ANCEF) 12-11 03-05 IV ity of 1,000 mg in 19:00: 17:35 Piggyback, [place] NaCl 0.9% 00 :26 Q8H ABX, Medica l (NS) 50 mL First dose Bra nch MINI-BAG on Fri12/11/20 at 1300, Until Discontinu ed, 50 mL
R jose armando for Anti-Infec tive: Documented Infection< br>Documen ronan Infection Site: Skin / Soft Tissue
Duration of Therapy: 7 days Sliding Yes Subcutaneo [facility] ers Scale 12-11 us, TID ity of Insulin - 18:00: MEALS+HS, [place] Lispro 00 First dose Medical (HumaLOG) + on Fri Branch Fsbg 12/11/20 at Testing 1200, Until Discontinu ed, Routine insulin Yes 5U 5 Units, [facility] s lispro 12-11 Subcutaneo ity of (human) 18:00: us, TID [place] (HumaLOG 00 MEALS, Medical U-100) First dose Branch injection 5 on Fri Units 12/11/20 at 1200, Until Discontinu ed Polyethylen Yes 17g 17 g, [facility] rs e Glycol 12-11 Oral, ity of 3350 17:47: [id number], [place] (MIRALAX) 05 Starting Medica l powder 17 g Fri12/11/20 Br anch at 1147, Until Discontinu ed, Routine, Constipati on acetaminoph Yes 650mg 650 mg, Un toi en 12-11 Oral, ity of (TYLENOL) 16:51: Q6HPRN, [place] tablet 650 28 Starting Medic al mg 12/11/20 Branch at 1051, Until Discontinu ed, Routine, Pain (scale 1-3) FENTanyl PF 2020- No 75ug 75 mcg, Un oti (SUBLIMAZE 12-11 Slow IV ity o f (PF)) 15:00: 13:53 Push, [place] injection 00 :00 ONCE, 1 Medical 75 mcg dose, [facility] Branch 12/11/20 at 0900, Routine vancomycin 2020- [...] STAT piperacilli 2020- No 3.375g 3.375 g, [place] [facility] n-tazobacta 12-11 IV ity of m (ZOSYN) 12:00: 17:48 Piggyback, [place] injection 00 :24 Q6H, First Medi jose c 3.375 g dose on Branch [facility] 12/11/20 at 0600, Until Discontinu ed, KAHLIL
Re ason for Anti-Infec tive: Empiric Therapy for Suspected Infection< br>Empiric Therapy Site: Skin / Soft tissue
Duration of therapy: 72 hours sennosides- Yes [id number] 1{tbl} Take 1 Univers docusate 2-09 tablet by ity of sodium 00:00: mouth 2 [place] 8.6-50 mg 00 (two) Medical per tablet times Branch daily. hydrocortis Yes [id number] Apply to [place] [facility] one 2.5 % 2-09 affected ity of cream 00:00: area(s) 2 [place] 00 (two) Medical times Branch daily. blood sugar 2020-0 Yes [id number] Use to [place] [facility] diagnostic 11-21 check ity of (FREESTYLE 00:00: blood [place] LITE 00 glucose Medical STRIPS) 4-5 times Branch strip daily. Polyethylen 2020-0 Yes [id number] 17g Take 1 Univers e Glycol 2-09 Packet by ity of 3350 17 00:00: mouth [place] gram powder 00 every 24 Medi jose c (twenty-fo Branch ur) hours as needed for Constipati on. sennosides- 2020- Yes [id number] 1{tbl} Take 1 Univers docusate 2-09 tablet by ity of sodium 00:00: mouth 2 [place] 8.6-50 mg 00 (two) Medical per tablet times Branch daily. hydrocortis 2020-0 Yes [id number] Apply to Univers one 2.5 % 2-09 affected ity of cream 00:00: area(s) 2 [place] 00 (two) Medical times Branch daily. blood sugar 2020-0 Yes [id number] Use to [place] [facility] diagnostic 11-21 check ity of (FREESTYLE 00:00: blood [place] LITE 00 glucose Medical STRIPS) 4-5 times Branch strip daily. Polyethylen 2020-0 Yes [id number] 17g Take 1 Univers e Glycol 2-09 Packet by ity of 3350 17 00:00: mouth [place] gram powder 00 every 24 Medi jose c (twenty-fo Branch ur) hours as needed for Constipati on. sennosides- 2020-0 Yes [id number] 1{tbl} Take 1 Univers docusate 2-09 tablet by ity of sodium 00:00: mouth 2 [place] 8.6-50 mg 00 (two) Medical per tablet times Branch daily. hydrocortis 2020-0 Yes [id number] Apply to Univers one 2.5 % 2-09 affected ity of cream 00:00: area(s) 2 [place] 00 (two) Medical times Branch daily. blood sugar 2020-0 Yes [id number] Use to [place] [facility] diagnostic 11-21 check ity of (FREESTYLE 00:00: blood [place] LITE 00 glucose Medical STRIPS) 4-5 times Branch strip daily. Polyethylen 2020-0 Yes [id number] 17g Take 1 Univers e Glycol 2-09 Packet by ity of 3350 17 00:00: mouth [place] gram powder 00 every 24 Medi jose c (twenty-fo Branch ur) hours as needed for Constipati on. sennosides- Yes [id number] 1{tbl} Take 1 Univers docusate 11-21 tablet by ity of sodium 00:00: mouth 2 [place] 8.6-50 mg 00 (two) Medical per tablet times Branch daily. hydrocortis Yes [id number] Apply to [place] [facility] one 2.5 % 11-21 affected ity of cream 00:00: area(s) 2 [place] 00 (two) Medical times Branch daily. blood sugar Yes [id number] Use to [place] [facility] diagnostic 11-21 check ity of (FREESTYLE 00:00: blood [place] LITE 00 glucose Medical STRIPS) 4-5 times Branch strip daily. Polyethylen Yes [id number] 17g Take 1 Univers e Glycol - Packet by ity of 3350 17 00:00: mouth [place] gram powder 00 every 24 Medi jose c (twenty-fo Branch ur) hours as needed for Constipati on. Insulin 2020- No [id number] 15U inject 15 Univers Glargine 11-21-12 Units ity of (LANTUS 00:00: 05:59 under the [employer] [place] 00 :00 skin every Medic al U-100 morning Branch INSULIN) for 30 100 unit/mL days. (3 mL) injection venlafaxine 2020- No [id number] 150mg Take 1 Univers XR 150 mg 11-21 capsule by ity of 24 hr 00:00: 05:59 mouth 3 [place] capsule 00 :00 (three) Medical times Branch daily for 30 days. Insulin 2020- No [id number] 15U inject 15 Univers Glargine 11-21-12 Units ity of (LANTUS 00:00: 05:59 under the [employer] SOLOSTAR 00 :00 skin every Medic al U-100 morning Branch INSULIN) for 30 100 unit/mL days. (3 mL) injection venlafaxine 2020- No [id number] 150mg Take 1 Univers XR 150 mg 11-21 capsule by ity of 24 hr 00:00: 05:59 mouth 3 [place] capsule 00 :00 (three) Medical times Branch daily for 30 days. triamcinolo 2020- No [id number] Apply to [place] [facility] ne 11-21 area(s) 2 ity of acetonide 00:00: 00:00 (two) [place] 0.1 % cream 00 :00 times Medical daily. Branch cephALEXin 2020- No [id number] 1000mg Take 2 Univers 500 mg 11-21 capsules ity of capsule 00:00: 00:00 by mouth 3 [place] 00 :00 (three) Medical times Branch daily. doxycycline 2020- No [id number] 100mg Take 1 Univers hyclate 100 11-21 capsule by i ty of mg capsule 00:00: 00:00 mouth [place] 00 :00 every 12 Medical (twelve) Branch hours. lactobacill 2020- No [id number] 1{tbl} Take 1 Univers us 11-21 tablet by ity of acidophilus 00:00: 00:00 mouth 2 [place] 25 million 00 :00 (two) Medical cell -100 times Branch mg captab daily. bisacodyL 2020- No [id number] 10mg Insert 1 Univers 10 mg 11-21 Suppositor ity of suppository 00:00: 00:00 y into [place] 00 :00 rectum at Medical bedtime as Branch needed for Constipati on. ALPRAZolam 2020- No [id number] .25mg Take 1 Univers (XANAX) 11-21 tablet by ity of 0.25 mg 00:00: 00:00 mouth 2 [place] tablet 00 :00 (two) Medical times Branch daily. hydrOXYzine 2020- No [id number] 20mg Take 2 Univers 10 mg 11-21 [...] Units ity of (NOVOLOG 01:13: under the [facility] s FLEXPEN SC) 36 skin. Medical [...] 01:13: [place] INJECTION) 36 Medical Branch venlafaxine 2020-1 Yes 150mg Take 150 U nivers XR [...] 34 :00 Medical Branch hydrocortis 2019-10 Yes [id number] Apply to Univers one 2.5 % 1-11 affected ity of cream 00:00: area(s) 2 [place] 00 (two) Medical times Branch daily. hydrOXYzine 2019-10 Yes [id number] 20mg Take 2 Univers 10 mg 1-11 tablets by ity of tablet 00:00: mouth [place] 00 every 8 Medical (eight) Branch hours as needed for Itching or Anxiety. Polyethylen 2019-10 Yes [id number] 17g Take 1 Univers e Glycol 1-11 Packet by ity of 3350 17 00:00: mouth [place] gram powder 00 every 24 Medi jose c (twenty-fo Branch ur) hours as needed for Constipati on. hydrocortis 2019- Yes [id number] Apply to Univers one 2.5 % 1-11 affected ity of cream 00:00: area(s) 2 [place] 00 (two) Medical times Branch daily. hydrOXYzine 2019- Yes [id number] 20mg Take 2 Univers 10 mg 1-11 tablets by ity of tablet 00:00: mouth [place] 00 every 8 Medical (eight) Branch hours as needed for Itching or Anxiety. Polyethylen 2020- Yes [id number] 17g Take 1 Univers e Glycol 1-11 Packet by ity of 3350 17 00:00: mouth [place] gram powder 00 every 24 Medi jose c (twenty-fo Branch ur) hours as needed for Constipati on. hydrocortis 2019- Yes [id number] Apply to Univers one 2.5 % 1-11 affected ity of cream 00:00: area(s) 2 [place] 00 (two) Medical times Branch daily. hydrOXYzine 2019- Yes [id number] 20mg Take 2 Univers 10 mg 1-11 tablets by ity of tablet 00:00: mouth [place] 00 every 8 Medical (eight) Branch hours as needed for Itching or Anxiety. Polyethylen 2019- Yes [id number] 17g Take 1 Univers e Glycol 1-11 Packet by ity of 3350 17 00:00: mouth [place] gram powder 00 every 24 Medi jose c (twenty-fo Branch ur) hours as needed for Constipati on. hydrocortis 2019- Yes [id number] Apply to Univers one 2.5 % 1-11 affected ity of cream 00:00: area(s) 2 [place] 00 (two) Medical times Branch daily. hydrOXYzine 2019- Yes [id number] 20mg Take 2 Univers 10 mg 1-11 tablets by ity of tablet 00:00: mouth [place] 00 every 8 Medical (eight) Branch hours as needed for Itching or Anxiety. Polyethylen 2019- Yes [id number] 17g Take 1 Univers e Glycol 1-11 Packet by ity of 3350 17 00:00: mouth [place] gram powder 00 every 24 Medi jose c (twenty-fo Branch ur) hours as needed for Constipati on. hydrocortis 2019- Yes [id number] Apply to Univers one 2.5 % 1-11 affected ity of cream 00:00: area(s) 2 [place] 00 (two) Medical times Branch daily. hydrOXYzine 2019- Yes [id number] 20mg Take 2 Univers 10 mg 1-11 tablets by ity of tablet 00:00: mouth [place] 00 every 8 Medical (eight) Branch hours as needed for Itching or Anxiety. Polyethylen 2020- Yes [id number] 17g Take 1 Univers e Glycol 1-11 Packet by ity of 3350 17 00:00: mouth [place] gram powder 00 every 24 Medi jose c (twenty-fo Branch ur) hours as needed for Constipati on. hydrocortis 2019- Yes [id number] Apply to Univers one 2.5 % 1-11 affected ity of cream 00:00: area(s) 2 [place] 00 (two) Medical times Branch daily. hydrOXYzine 2019- Yes [id number] 20mg Take 2 Univers 10 mg 1-11 tablets by ity of tablet 00:00: mouth [place] 00 every 8 Medical (eight) Branch hours as needed for Itching or Anxiety. Polyethylen 2019- Yes [id number] 17g Take 1 Univers e Glycol 1-11 Packet by ity of 3350 17 00:00: mouth [place] gram powder 00 every 24 Medi jose c (twenty-fo Branch ur) hours as needed for Constipati on. hydrocortis 2019-10 Yes [id number] Apply to Univers one 2.5 % 1-11 affected ity of cream 00:00: area(s) 2 [place] 00 (two) Medical times Branch daily. hydrOXYzine 2019-10 Yes [id number] 20mg Take 2 Univers 10 mg 1-11 tablets by ity of tablet 00:00: mouth [place] 00 every 8 Medical (eight) Branch hours as needed for Itching or Anxiety. Polyethylen 2019- Yes [id number] 17g Take 1 Univers e Glycol 1-11 Packet by ity of 3350 17 00:00: mouth [place] gram powder 00 every 24 Medi jose c (twenty-fo Branch ur) hours as needed for Constipati on. triamcinolo 2019- 2020- No [id number] Apply to [facility] 10-23 area(s) 2 ity of acetonide 00:00: 05:59 (two) [place] 0.1 % cream 00 :00 times Medical daily for Branch 14 days. triamcinolo 2020- 2020- No [id number] Apply to [facility] 10-23 area(s) 2 ity of acetonide 00:00: 05:59 (two) [place] 0.1 % cream 00 :00 times Medical daily for Branch 14 days. triamcinolo 2020- 2020- No [id number] Apply to [facility] 1-11 11-26 area(s) 2 ity of acetonide 00:00: 05:59 (two) [place] 0.1 % cream 00 :00 times Medical daily for Branch 14 days. KCL 2019- 2020- No 40meq 40 mEq, Univers (KLOR-CON 1-10 11-10 Oral, ONCE ity of M20) tablet 16:15: 16:23 NOW, 1 Jeff as 40 mEq 00 :00 dose, [facility] 08/22/20 Branch at 1015, Routine HYDROmorpho 2019-10 Yes 1mg 1 mg, Unive rs ne 1-10 Oral, ity of (DILAUDID) 15:07: Q6HPRN, [place] tablet 1 mg 53 Starting [facility] 08/22/20 at 0907, Until Discontinu ed, Routine, Pain (scale 7-10) hydrocortis 2019-10 Yes Topical Uni vers one 2.5 % -10 (Apply To ity o f cream 02:00: Affected [place] 00 Areas), Medical BID, First Branch dose on [facility] 08/21/20 at 2000, Until Discontinu ed, Routine triamcinolo 2019-10 Yes Topical, Un toi ne 1-10 BID, First ity of acetonide 02:00: dose on [place] (TRIDERM) 00 Fri Medical 0.1 % cream 08/21/20 at Br anch 2000, Until Discontinu ed, Routine hydrOXYzine 2019-10 Yes 20mg 20 mg, Univ ers (ATARAX) 09 Oral, ity of tablet 20 17:39: Q8HPRN, [place] mg [address] [facility] 08/21/20 at 1139, Until Discontinu ed, Routine, Itching, Anxiety sennosides- 2019-10 Yes 1{tbl} 1 tablet, Univers docusate 09 Oral, ity of sodium 15:00: DAILY, [place] (SENOKOT-S) 00 First dose Me dical 8.6-50 mg on [facility] Branch per tablet 08/21/20 at 1 tablet 0900, Until Discontinu ed, Routine hydrocortis 2019-10 2020- No Topical Un toi one 1 % 10-21 11- (Apply To ity of cream 15:00: 22:54 Affected [place] 00 :48 Areas), Medical DAILY, Branch First dose on [facility] 08/21/20 at 0900, Until Discontinu ed, Routine venlafaxine 2019-10 Yes 150mg 150 mg, Un toi XR (EFFEXOR 10-21 Oral, TID, it y of XR) 24 hr 14:00: [place] capsule 150 00 on [facility] Medica l mg 08/21/20 at Branch 0800, Until Discontinu ed, Routine heparin 2019-10 Yes 5000U 5,000 Univers (porcine) 10-21 Units, ity of injection 14:00: Subcutaneo [place] 5,000 Units 00 us, Q12H, Med ical First dose Branch on [facility] 08/21/20 at 0800, Until Discontinu ed, Routine diphenhydrA 2019-10 2020- No 25mg 25 mg, Uni vers MINE 10-21 Oral, ity of (BENADRYL) 12:56: 17:39 Q8HPRN, [place] as tablet 25 59 :43 Starting Medica l mg [facility] 08/21/20 at 0656, Until [facility] 08/21/20 at 1139, Routine, Itching, Mild Rash, Congestion /Allergies , alternate with hydroxyzin e hydrOXYzine 2019-10 2020- No 10mg 10 mg, Uni vers (ATARAX) 10-21 Oral, ity of tablet 10 10:20: 12:57 Q6HPRN, [place] mg 22 :[address] [facility] 08/21/20 at 0420, Until [facility] 08/21/20 at 0657, Routine, Itching, Anxiety Sliding 2019-10 Yes Subcutaneo Univ ers Scale 10-21 us, Q4H, ity of Insulin - 10:00: First dose [place] Aspart 00 (after Medical (NOVOLOG) + last Branch Fsbg modificati Testing on) on [facility] 08/21/20 at 0400, Until Discontinu ed, Routine lidocaine 5 2019-10 2020- No Topical, U nivers % ointment 10-21 ONCE, 1 ity o f 09:30: 09:14 dose, [facility] 00 :00 08/21/20 at [facility] 0330, Branch Routine Polyethylen 2019-10 Yes 17g 17 g, Unive rs e Glycol 10-21 Oral, ity of 3350 08:29: [id number], [place] (MIRALAX) 09 Starting Medica l powder [address] [facility] 08/21/20 at 0229, Until Discontinu ed, Routine, Constipati on lanolin 2019-10 Yes Topical, [facility] s alcohol-mo- 10-21 PRN, ity of w.pet-ceres 08:26: [place] (EUCERIN) 30 Mon Medical cream 08/21/20 at Branch 0226, Until [...] tablet 59 :00 bedtime. Medical Branch esomeprazol 2019-10 2020- No 40mg Take 40 mg Univers e [...] tablet 650 24 Starting [address] mg [facility] 08/21/20 at 0145, Until Discontinu ed, Routine, Pain (scale 1-3) sotalol 2019-10 2020- No Take by [facility] s (BETAPACE) 10-21 mouth ity of 240 mg 07:43: 00:00 every 12 [place] tablet 30 :00 (twelve) Medical hours. Branch blood sugar Yes Use to [facility] ers diagnostic 4-25 check ity of (FREESTYLE 00:00: blood [place] LITE 00 glucose Medical STRIPS) 4-5 times Branch strip daily. blood sugar Yes Use to [facility] ers diagnostic 4-25 check ity of (FREESTYLE 00:00: blood [place] LITE 00 glucose Medical STRIPS) 4-5 times Branch strip daily. blood sugar Yes Use to [facility] ers diagnostic 4-25 check ity of (FREESTYLE 00:00: blood [place] LITE 00 glucose Medical STRIPS) 4-5 times Branch strip daily. blood sugar Yes Use to [facility] ers diagnostic 4-25 check ity of (FREESTYLE 00:00: blood [place] LITE 00 glucose Medical STRIPS) 4-5 times Branch strip daily. blood sugar Yes Use to [facility] ers diagnostic 4-25 check ity of (FREESTYLE 00:00: blood [place] LITE 00 glucose Medical STRIPS) 4-5 times Branch strip daily. blood sugar Yes Use to [facility] ers diagnostic 4-25 check ity of (FREESTYLE 00:00: blood [place] LITE 00 glucose Medical STRIPS) 4-5 times Branch strip daily. blood sugar Yes Use to [facility] ers diagnostic -25 check ity of (FREESTYLE 00:00: blood [place] LITE 00 glucose Medical STRIPS) 4-5 times Branch strip daily. Vital Signs Vital Name Observation Time Observation Value Comments Source Systolic blood 2021-08-22 13:00:00 148 mm[Hg] Univer [facility]ity of [facility] Diastolic blood 2021-08-22 13:00:00 84 mm[Hg] [facility] Heart rate 2021-08-22 13:00:00 103 /min [facility] Respiratory rate 2021-08-22 13:00:00 18 /min [facility] Oxygen saturation in 2021-08-22 13:00:00 95 /min [facility] Arterial blood by [facility] Pulse oximetry Branch Body temperature 2021-08-22 12:22:00 36.72 [place] [facility] [place] [facility] Systolic blood 2020-12-17 18:35:00 139 mm[Hg] Univer [facility] Diastolic blood 2020-12-17 18:35:00 87 mm[Hg] [facility] Heart rate 2020-12-17 18:35:00 110 /min [facility] [...] [facility] Pulse oximetry Branch Body weight 2020-08-21 07:20:00 104.962 kg Universi [facility] BMI 2020-08-21 07:20:00 32.27 kg/m2 [facility] Systolic blood 2020-08-23 19:27:00 140 mm[Hg] Univer sity of pressure [facility] Diastolic blood 2020-08-23 19:27:00 79 [facility]Hg] [facility] 2020-08-23 19:27:00 99 /min [facility] Body temperature 2020-08-23 19:27:00 36 [place] [facility] [place] [facility] Respiratory rate 2020-08-23 19:27:00 18 /min Univ [facility] Oxygen saturation in 2020-08-23 19:27:00 93 /min [facility] Arterial blood by [facility] Pulse oximetry Branch Body weight 2020-08-21 07:20:00 104.962 kg [facility] BMI 2020-08-21 07:20:00 32.27 kg/m2 [facility] Procedures Procedure Date / Time Performing Clinician Source Performed POCT GLUCOSE (AUTOMATED) 2020-12-17 15:42:00 Vika Harrison G Uni [facility] BASIC METABOLIC PANEL 2020-12-17 10:45:00 Paul Bean [facility] (NA, K, CL, CO2, GLUCOSE, [place] Medica l Branch BUN, CREATININE, CA) CBC WITH DIFF 2020-12-17 10:45:00 Paul Bean [facility] POCT GLUCOSE (AUTOMATED) 2020-12-17 02:36:00 Vika Harrison G [facility] [place] [facility] XR TIBIA FIBULA 2 VW LEFT 2020-12-16 23:38:00 Paul Bean [facility] POCT GLUCOSE (AUTOMATED) 2020-12-16 23:20:00 Vika Harrison [facility] [place] [facility] POCT GLUCOSE (AUTOMATED) 2020-12-16 20:10:00 Vika Harrison Uni [facility] POCT GLUCOSE (AUTOMATED) 2020-12-16 14:43:00 Harrison, Premal G [facility] [place] [facility] BASIC METABOLIC PANEL 2020-12-16 13:51:00 Paul Bean [facility] (NA, K, CL, CO2, GLUCOSE, [place] [facility] BUN, CREATININE, CA) CBC WITH DIFF 2020-12-16 13:51:00 Paul Bean [facility] POCT GLUCOSE (AUTOMATED) 2020-12-16 04:00:00 Harrison, Premal [facility] POCT GLUCOSE (AUTOMATED) 2020-12-16 00:14:00 Favio Harrisonal [facility] [place] [facility] CHEST PULMONARY 2020-12-15 22:29:38 Paul Bean [facility] ANGIOGRAM [facility] POCT GLUCOSE (AUTOMATED) 2020-12-15 19:26:00 Favio Harrisonal [facility] POCT GLUCOSE (AUTOMATED) 2020-12-15 15:13:00 Vika Harrison [facility] [place] [facility] HB ECG ROUTINE & RHYTHM 2020-12-15 14:25:27 Cailin Romo [facility] MAGNESIUM 2020-12-15 12:01:00 Paul Bean [facility] BASIC METABOLIC PANEL 2020-12-15 12:01:00 Paul Bean [facility] (NA, K, CL, CO2, GLUCOSE, [place] [facility] BUN, CREATININE, CA) CBC WITH DIFF 2020-12-15 12:01:00 Paul Bean [facility] POCT GLUCOSE (AUTOMATED) 2020-12-15 03:57:00 Harrison, Favioal G Uni versity of [facility] POCT GLUCOSE (AUTOMATED) 2020-12-14 23:31:00 Harrison, Premal G Uni versity [facility] POCT GLUCOSE (AUTOMATED) 2020-12-14 19:08:00 Harrison, Premal G Uni versity of [facility] POCT GLUCOSE (AUTOMATED) 2020-12-14 15:11:00 Harrison, Premal G Uni versity of [facility] POCT GLUCOSE (AUTOMATED) 2020-12-14 02:36:00 Harrison, Premal G Uni versity of [facility] POCT GLUCOSE (AUTOMATED) 2020-12-13 23:32:00 Harrison, Premal G Uni versity of [facility] POCT GLUCOSE (AUTOMATED) 2020-12-13 18:08:00 Harrison, Premal G Uni versity of [facility] BASIC METABOLIC PANEL 2020-12-13 15:39:00 Paul Bean [facility] (NA, K, CL, CO2, GLUCOSE, [place] [facility] BUN, CREATININE, CA) CBC WITH DIFF 2020-12-13 15:39:00 [facility] Bean [facility] POCT GLUCOSE (AUTOMATED) 2020-12-13 14:06:00 Harrison, Premal G Uni versity of [facility] POCT GLUCOSE (AUTOMATED) 2020-12-13 03:07:00 Harrison, Premal G Uni versity of [facility] POCT GLUCOSE (AUTOMATED) 2020-12-12 23:52:00 Harrison, Premal G Uni versity of [facility] POCT GLUCOSE (AUTOMATED) 2020-12-12 20:28:00 Harrison, Premal G Uni versity of [facility] POCT GLUCOSE (AUTOMATED) 2020-12-12 19:14:00 Harrison, Premal G Uni versity of [facility] POCT GLUCOSE (AUTOMATED) 2020-12-12 14:33:00 Harrison, Premal G Uni versity of [facility] Branch MAGNESIUM 2020-12-12 08:58:00 [facility] Bean [facility] BASIC METABOLIC PANEL 2020-12-12 08:58:00 Paul Bean [facility] (NA, K, CL, CO2, GLUCOSE, [place] [facility] BUN, CREATININE, CA) CBC WITH DIFF 2020-12-12 08:58:00 Paul Bean [facility] US ABDOMEN LIMITED 2020-12-12 06:32:26 Paul Bean [facility] POCT GLUCOSE (AUTOMATED) 2020-12-12 03:40:00 Hunter Vika Fernando [facility] [place] [facility] POCT GLUCOSE (AUTOMATED) 2020-12-12 00:06:00 Vika Harrison [facility] XR HIPS 3 VW LEFT 2020-12-11 20:20:00 [facility] ROUTINE & RHYTHM 2020-12-11 20:04:06 Dem[facility]us [facility] VITAMIN B6, PLASMA 2020-12-11 19:17:00 [facility]OMATED) 2020-12-11 19:06:00 Vika Harrison [facility] CREATINE KINASE 2020-12-11 18:22:00 [facility] B12, LEVEL 2020-12-11 18:22:00 Vikas [facility] FOLATE 2020-12-11 18:[facility] 2020-12-11 18:22:00 Demetrius Cailin [facility] PROCALCITONIN 2020-12-11 18:22:00 Nicasio [facility] VITAMIN B1 (THIAMINE), 2020-12-11 18:22:00 [facility] WHOLE BLOOD [facility] HEAD WO CONTRAST 2020-12-11 14:07:35 Sweetie Stout [facility] URINALYSIS 2020-12-11 13:44:00 [facility] URINE CULTURE 2020-12-11 13:44:00 [facility] COVID-19 (ID NOW RAPID 2020-12-11 12:31:00 Paco Lacey [facility] TESTING) Medical Branch LAB ONLY COVID 2020-12-11 12:31:00 Singer Paco [facility] INTERPRETATION [facility] Branch XR CHEST 1 VW 2020-12-11 12:07:24 [facility] BLOOD CULTURE SCREEN 2020-12-11 12:02:00 Singer Paco [facility] MAGNESIUM 2020-12-11 12:02:00 [facility] 2020-12-11 12:02:00 [facility] COMP. METABOLIC PANEL 2020-12-11 12:02:00 Singer [facility] ([id number]) [facility] CBC WITH DIFF 2020-12-11 12:02:00 [facility] LACTIC ACID WHOLE BLOOD 2020-12-11 12:02:00 [facility] BLOOD CULTURE SCREEN 2020-12-11 11:42:00 Singer [facility] EMERGENCY SERVICES 2020-12-11 06:01:00 Doctor Unaowen, [facility] AGREEMENTS AND [facility] [place] AUTHORIZATIONS HOSPITAL ADMISSION 2020-12-11 06:01:00 Doctor Tabitha, [facility] Name Medical [place] HOME HEALTH - OTHER 2020-11-11 06:01:00 Doctor Tabitha, [facility] [place] [facility] - OTHER 2020-10-30 06:01:00 Doctor Tabitha, [facility] Name Medical [place] EXTERNAL PROVIDER RECORDS 2020-09-01 06:01:00 Doctor Tabitha, [facility] Name [facility] POCT GLUCOSE (AUTOMATED) 2020-08-23 18:09:00 Kelly [place] [facility] POCT GLUCOSE (AUTOMATED) 2020-08-23 14:14:00 Kelly [place] [facility] MAGNESIUM 2020-08-23 11:18:00 Ramya [facility] BASIC METABOLIC PANEL 2020-08-23 11:18:00 Ramya [facility] (NA, K, CL, CO2, GLUCOSE, Medica l Branch BUN, CREATININE, CA) CBC WITH DIFF 2020-08-23 11:18:00 Ramya [facility] POCT GLUCOSE (AUTOMATED) 2020-08-23 10:21:00 StefaniaKelly versity [facility] POCT GLUCOSE (AUTOMATED) 2020-08-23 05:55:00 WashingtonKelly versity of [facility] POCT GLUCOSE (AUTOMATED) 2020-08-23 03:00:00 WashingtonKelly versity [facility] POCT GLUCOSE (AUTOMATED) 2020-08-22 23:38:00 [place], Kelly Elias versity of [facility] POCT GLUCOSE (AUTOMATED) 2020-08-22 19:04:00 Stefania [facility] ([facility]OM[facility]) 2020-08-22 13:49:00 Stefania Kelly Elias [facility] MAGNESIUM 2020-08-22 10:10:00 [place] [facility] HEPATIC FUNCTION PANEL 2020-08-22 10:10:00 Aguila Melchor [facility] ([id number]) (ALB,T.PRO,BILI Medical Branch T,BU/BC,ALT,AST,ALK PHOS) BASIC METABOLIC PANEL 2020-08-22 10:10:00 [place] [facility] (NA, K, CL, CO2, GLUCOSE, Medica l Branch BUN, CREATININE, CA) LIPID PANEL ([id number])(TOTAL 2020-08-22 10:10:00 [place] [facility] CHOLESTEROL, Medical [place] TRIGLYCERIDES, HDL) CBC WITH DIFF 2020-08-22 10:10:00 [place] [facility] POCT GLUCOSE (AUTOMATED) 2020-08-22 10:10:00 Stefania Kelly Elias [facility] POCT GLUCOSE (AUTOMATED) 2020-08-22 07:13:00 Stefania Kelly Elias [facility] POCT GLUCOSE (AUTOMATED) 2020-08-22 02:24:00 Stefania Kelly Elias [facility] POCT GLUCOSE (AUTOMATED) 2020-08-21 23:40:00 Stefania Kelly Elias [facility] POCT GLUCOSE (AUTOMATED) 2020-08-21 18:10:00 StefaniaKelly [facility] POCT GLUCOSE (AUTOMATED) 2020-08-21 13:39:00 StefaniaKelly [facility] ETHANOL 2020-08-21 12:35:00 Richie [facility] ACTIVATED PARTIAL 2020-08-21 12:35:00 Stefania [facility] GALV ONLY - SYPHILIS 2020-08-21 12:35:00 Stefania Kelly [facility] IGG/IGM [facility] LACTATE DEHYDROGENASE 2020-08-21 10:09:00 [place], [facility] GALV/CLC ONLY - URINE 2020-08-21 10:09:00 [facility] - 4 ER Medica l Branch PANEL URINALYSIS 2020-08-21 10:09:00 [place], [facility] URINE CULTURE 2020-08-21 10:09:00 [place], [facility] PROCALCITONIN 2020-08-21 10:09:00 Ramya, [facility] POCT GLUCOSE (AUTOMATED) 2020-08-21 09:41:00 StefaniaKelly [facility] PROTHROMBIN TIME / INR 2020-08-21 08:32:00 Ramya, [facility] ACTIVATED PARTIAL 2020-08-21 08:32:00 [place], [facility] C-REACTIVE PROTEIN 2020-08-21 08:31:00 [place], [facility] HEPATIC FUNCTION PANEL 2020-08-21 08:31:00 Ramya, [facility] ([id number]) (ALB,T.PRO,BILI Medical Branch T,BU/BC,ALT,AST,ALK PHOS) BASIC METABOLIC PANEL 2020-08-21 08:31:00 [place], [facility] (NA, K, CL, CO2, GLUCOSE, Medica l Branch BUN, CREATININE, CA) SEDIMENTATION RATE 2020-08-21 08:31:00 Ramya, [facility] CBC WITH DIFF 2020-08-21 08:31:00 Ramya, [facility] o f [facility] GLYCOSYLATED HEMOGLOBIN 2020-08-21 08:31:00 Ramya, [facility] (A1C) [facility] HIV 1/2 AG-AB WITH REFLEX 2020-08-21 08:31:00 [facility] [place] [facility] COVID-19 (ID NOW RAPID 2020-08-21 08:20:00 Ramya, [facility] TESTING) Medical Branch LAB ONLY COVID 2020-08-21 08:20:00 [place], [facility] INTERPRETATION [facility] Encounters Start End Encounter Admission Attending Care Care Encounter Source Date/Time Date/Time Type Type Clinicians Facility Department ID 2022-11-13 Outpatient 3 [id number] ENCPL REF [id number] [facility] 11:39:58 0201 [facility] [place] 2020-08-21 Inpatient U STEFANIA [facility] KVNG [id number] Univers 01:07:00 KELLY cantu [facility] 2022-11-14 2022-11-28 Inpatient 3 [facility] ENCPL DELVIS [id number] [facility] 20:40:00 13:29:00 [facility]aggy [facility] [place] 2021-08-22 2021-08-22 Emergency X [facility] ERT [id number] Univers 06:21:00 08:02:00 [facility] 2021-08-22 2021-08-22 Emergency [facility] [id number] Univers 06:21:00 08:02:00 Sweetie LOTT [id number] i ty roxana WARREN [id number] [facility] [phone] [facility] 084 Branch 2021-08-09 2021-08-09 Outpatient JACQUELYN HAINES [id number] [facility] 10:27:03 10:27:03 ADRIANA lopez of Medicin e 2020-12-28 2020-12-28 Telephone [facility] [id number] Univers 00:00:00 00:00:00 Calvin H PRIMARY [id number] it y of [place] [id number] [place] [id number] De dical 220 Branch 2020-12-28 2020-12-28 Telephone [facility] [id number] 00:00:00 00:00:00 Calvin H PRIMARY [id number] CARE [id number] PAVILLION [phone] 220 2020-12-19 2020-12-19 Transition Tuan Peters [id number] Univers 00:00:00 00:00:00 of Care Ruchi Braswell [id number] it y of [place] [id number] [place] [id number] [facility] 403 Branch 2020-12-19 2020-12-19 Transition Tuan Peters [id number] 00:00:00 00:00:00 of Care Ruchi Braswell [id number] [place] [id number] [facility] 2020-12-11 2020-12-17 [facility] Paco Lacey [id number] Univers 05:11:00 16:00:00 Encounter Vika Harrisony [id number] ity of [facility] [id number] [place] [id number] [facility] 096 Branch 2020-12-11 2020-12-17 Inpatient X [facility] [id number] Univers 05:11:00 16:00:00 ity of [facility] 2020-12-11 2020-12-17 [facility] Paco Lacey 1.2.840.1 [id number] 05:11:00 16:00:00 Encounter Vika Harrison G Monique [id number] [facility] 4.2.7.2.686 [id number] 2020-11-16 2020-11-16 Emergency X , [facility] ERT [id number] Univers 09:31:00 09:31:00 PACO cantu of [facility] 2020-11-11 2020-11-11 Orders Doctor BASILIA [id number] Univers 00:00:00 00:00:00 Only Unassigned, MONIQUE [id number] ity of [facility] [id number] Jeff as [phone] [address] 2020-11-11 2020-11-11 Orders Doctor BASILIA 1.2.840.114 [id number] 00:00:00 00:00:00 Only Unassigned, MONIQUE [id number] [facility] [id number] [id number] 2020-11-07 2020-11-07 Telephone [facility] [id number] Univers 00:00:00 00:00:00 Angi Lott [id number] ity of [place].2.[place] Profess[place] [phone] [address] 2020-11-07 2020-11-07 Telephone [facility] [id number] 00:00:00 00:00:00 Angi Lott [id number] [place] [id number] Professio [phone] [address] 2020-10-30 2020-10-30 Orders Doctor BASILIA 1.2.840.114 [id number] Univers 00:00:00 00:00:00 Only Unassigned, MONIQUE [id number] ity of [facility] [id number] Jeff as [phone] [address] 2020-10-30 2020-10-30 Orders Doctor CUI 1.2.840.114 [id number] 00:00:00 00:00:00 Only Unassigned, MONIQUE [id number] [facility] [id number] [id number] 009 2020-09-26 2020-09-26 Telephone STONE Mccabe 1.2.840.114 [id number] Univers 00:00:00 00:00:00 Jl Renato [facility] [id number] i ty of CLINICS 4.2.7.2.[place] [phone] [facility] 027 Branch 2020-09-26 2020-09-26 Telephone STONE Mccabe 1.2.840.114 [id number] 00:00:00 00:00:00 Jl Renato [facility] [id number] CLINICS [id number] [id number] 2020-09-01 2020-09-01 Orders Doctor BASILIA 1.2.840.114 [id number] Univers 00:00:00 00:00:00 Only Unassigned, MONIQUE [id number] ity of [facility] [id number] Jeff as [phone] [facility] 009 Branch 2020-09-01 2020-09-01 Orders Doctor BASILIA 1.2.840.114 [id number] 18 00:00:00 00:00:00 Only Unassigned, MONIQUE 350.1.13.10 [facility] 4.2.7.2.686 [id number] 2020-08-25 2020-08-25 Transition Tuan Peters 1.2.840.114 [id number] [facility] 00:00:00 00:00:00 of Care Ruchi Braswell 350.1.13.10 [place] [id number] [facility] [address] 2020-08-25 2020-08-25 Transition Tuan Peters 1.2.840.114 [id number] 00:00:00 00:00:00 of Care Ruchi Braswell 350.1.13.10 [place] 4.2.7.2.686 [id number] 403 2020-08-21 2020-08-23 [facility] Kelly [place] 1. 2.840.114 [id number] Univers 01:07:00 18:35:00 Encounter Mukul Gallardo 350.1.13. 10 [facility] 4.2.7.2.686 Jeff as [id number] [place] [id number] [place] 2020-08-21 2020-08-23 [facility] Ayleen [place] 1.2.840.114 [id number] 01:07:00 18:35:00 Encounter Kelly Amaya 350.1.13.10 [facility] 4.2.7.2.686 [phone] 095 Results Test Description Test Time Test Comments Results Result Comments Source POCT GLUCOSE (AUTOMATED) 2020-12-17 15:43:35 Test Item Value Reference Range Interpretation Comme nts POCT GLU (test code = 6280937252) 129 mg/dL 70-110 H Lab Interpretation (test code = 10339-6) Abnormal [facility] METABOLIC PANEL (NA, K, CL, CO2, GLUCOSE, BUN, CREATININE, CA)2020-12-17 11:45:07 Test Item Value Reference Range Interpretation Comments NA (test code = 137 mmol/L 135-145 0271428115) K (test code = 3.5 mmol/L 3.5-5.0 1888783470) CL (test code = 103 mmol/L 98-108 8746435748) CO2 TOTAL (test code = 26 mmol/L 23-31 0536374898) AGAP (test code = 2-16 3108577662) BUN (test code = 11 mg/dL 7-23 4501473805) GLUCOSE (test code = 175 mg/dL 70-110 H 5244240801) CREATININE (test code = 0.62 mg/dL 0.60-1.25 7101009543) CALCIUM (test code = 9.0 mg/dL 8.6-10.6 7789039977) eGFR Calculation mL/min/1.73m2 (Non-) (test code = 0268762486) eGFR Calculation mL/min/1.73m2 () (test code = 9574588423) JAMES (test code = JAMES) Association of [...] tests). Lab Interpretation Abnormal (test code = 12844-7) [facility] WITH [id number] 11:07:27 Test Item Value Reference Range Interpretation Comments WBC (test code = See_Comment H [Automated 0940-2) message] The sy stem which generated this result transmitted reference range : 4.20 - 10.70 10*3/?L. The reference range was not used to interpret this result as normal/abnormal . RBC (test code = See_Comment [Automated 484-8) message] The sy stem which generated this [...] RDW-SD (test code = 45.2 fL 38.5-51.6 50897-2) RDW-CV (test code = 16.9 % 12.1-15.4 H 788-0) PLT (test code = See_Comment H [Automated 777-3) message] The sy stem which generated this result transmitted reference range : 150 - 328 10*3/ ?L. The reference r torito was not used to interpret this result as normal/abnormal . MPV (test code = 8.1 fL 9.8-13.0 L 78169-2) NRBC/100 WBC (test See_Comment [Automat ed code = 8980392605) message] The system which generated this result transmitted reference range : 0.0 - 10.0 /100 WBCs. The refer ence range was not u sed to interpret th is result as normal/abnormal . NRBC x10^3 (test code <0.01 See_Comment [Auto mated = 4439493872) message] The s ystem which generated this result transmitted reference range : 10*3/?L. The reference range was not used to interpret this result as normal/abnormal . GRAN MAT (NEUT) % 72.8 % (test code = 770-8) IMM GRAN % (test code 0.60 % = 7677436808) LYMPH % (test code = 18.4 % 736-9) MONO % (test code = 5.7 % 5905-5) EOS % (test code = 1.8 % 713-8) BASO % (test code = 0.7 % 706-2) GRAN MAT x10^3(ANC) 8.23 10*3/uL 1.99-6.95 H (test code = 4285516169) IMM GRAN x10^3 (test 0.07 10*3/uL 0.00-0.06 H code = 6344057420) LYMPH x10^3 (test code 2.08 10*3/uL 1.09-3.23 = 731-0) MONO x10^3 (test code 0.65 10*3/uL 0.36-1.02 = 742-7) EOS x10^3 (test code = 0.20 10*3/uL 0.06-0.53 711-2) BASO x10^3 (test code 0.08 10*3/uL 0.01-0.09 = 704-7) Lab Interpretation Abnormal (test code = 91398-5) [facility]17 06:03:38 Test Item Value Reference Range Interpretation Comments POCT GLU (test code = 9743203720) 75 mg/dL 70-110 Lab Interpretation (test code = Normal 67117-9) [facility], [id number] 00:01:00 Test Item Value Reference Range Interpretation Comments VIT B6 (test code = 13.1 nmol/L 20.0-125.0 L INTERPRE TIVE 36351-2) INFORMATION: Vi tamin B6 (Pyridoxal 5-Phosphate) Pyridoxal 5'-phosphate me asured in a specimen collected follo wing an 8-hour or overnight fast accurately clara cates vitamin B6 nutritional sta tus. Non-fasting spe cimen concentration reflects recent vitamin intake. This test was develo ped and its perform ance characteristics determined by [facility]. I t has not been cleare d or approved by the [place] Food and Drug Administration. This test was perfor med in a CLIA certifie d laboratory and is intended for cl inical purposes.Perfor med By: [employer] [place] [address] [id number] Director: Namrata Klein MD Lab Interpretation Abnormal (test code = 44546-2) [facility] TIBIA FIBULA 2 VW [id number] 23:57:09 Tricompartmental knee joint osteoarthrosis.XR TIBIA FIBULA [...] Interpretation Comments POCT GLU (test code = 6524372942) 114 mg/dL 70-110 H Lab Interpretation (test code = Abnormal 85102-3) [facility] GLUCOSE (AUTOMATED)2020-12-16 20:12:00 Test Item Value Reference Range Interpretation Comments POCT GLU (test code = 7264420321) 105 mg/dL 70-110 Lab Interpretation (test code = Normal 90737-3) [facility] GLUCOSE (AUTOMATED)2020-12-16 14:44:00 Test Item Value Reference Range Interpretation Comments POCT GLU (test code = 6238552121) 153 mg/dL 70-110 H Lab Interpretation (test code = Abnormal 65581-2) [facility] METABOLIC PANEL (NA, K, CL, CO2, GLUCOSE, BUN, CREATININE, CA)2020-12-16 14:23:00 Test Item Value Reference Range Interpretation Comments NA (test code = 138 mmol/L 135-145 7380799944) K (test code = 3.4 mmol/L 3.5-5.0 L 7650251896) CL (test code = 100 mmol/L 98-108 0635010972) CO2 TOTAL (test code = 31 mmol/L 23-31 7893587371) AGAP (test code = 2-16 2281959958) BUN (test code = 11 mg/dL 7-23 8572892513) GLUCOSE (test code = 162 mg/dL 70-110 H 3313927377) CREATININE (test code = 0.64 mg/dL 0.60-1.25 4898721159) CALCIUM (test code = 8.9 mg/dL 8.6-10.6 2790246412) eGFR Calculation mL/min/1.73m2 (Non-) (test code = 6537461101) eGFR Calculation mL/min/1.73m2 () (test code = 7558208319) JAMES (test code = JAMES) Association of [...] tests). Lab Interpretation Abnormal (test code = 98640-3) [facility] WITH [id number] 14:05:00 Test Item Value Reference Range Interpretation Comments WBC (test code = See_Comment H [Automated 3732-2) message] The sy stem which generated this result transmitted reference range : 4.20 - 10.70 10*3/?L. The reference range was not used to interpret this result as normal/abnormal . RBC (test code = See_Comment [Automated 750-8) message] The sy stem which generated this [...] RDW-SD (test code = 45.4 fL 38.5-51.6 61902-1) RDW-CV (test code = 17.0 % 12.1-15.4 H 788-0) PLT (test code = See_Comment H [Automated 777-3) message] The sy stem which generated this result transmitted reference range : 150 - 328 10*3/ ?L. The reference r torito was not used to interpret this result as normal/abnormal . MPV (test code = 8.0 fL 9.8-13.0 L 91717-4) NRBC/100 WBC (test See_Comment [Automat ed code = 0806486423) message] The system which generated this result transmitted reference range : 0.0 - 10.0 /100 WBCs. The refer ence range was not u sed to interpret th is result as normal/abnormal . NRBC x10^3 (test code <0.01 See_Comment [Auto mated = 0757704865) message] The s ystem which generated this result transmitted reference range : 10*3/?L. The reference range was not used to interpret this result as normal/abnormal . GRAN MAT (NEUT) % 70.0 % (test code = 770-8) IMM GRAN % (test code 0.70 % = 2016392510) LYMPH % (test code = 20.5 % 736-9) MONO % (test code = 7.1 % 5905-5) EOS % (test code = 1.0 % 713-8) BASO % (test code = 0.7 % 706-2) GRAN MAT x10^3(ANC) 9.44 10*3/uL 1.99-6.95 H (test code = 4374868534) IMM GRAN x10^3 (test 0.09 10*3/uL 0.00-0.06 H code = 8268944771) LYMPH x10^3 (test code 2.76 10*3/uL 1.09-3.23 = 731-0) MONO x10^3 (test code 0.96 10*3/uL 0.36-1.02 = 742-7) EOS x10^3 (test code = 0.13 10*3/uL 0.06-0.53 711-2) BASO x10^3 (test code 0.10 10*3/uL 0.01-0.09 H = 704-7) Lab Interpretation Abnormal (test code = 47110-1) [facility] Culture - Peripheral # [id number] 13:01:00 Test Item Value Reference Range Interpretation Comments Blood Culture-Aerobic No organisms No growth Previo us (test code = 08316-8) isolated prelim inary verified result was Culture In Progress on 12/11/2020 at 100 1 CSTPrevious preliminary verified result was No growth a t 24 hours on 12/12/2020 at 070 1 CSTPrevious preliminary verified result was No growth a t 48 hours on 12/13/2020 at 070 1 CSTPrevious preliminary verified result was No growth a t 72 hours on 12/14/2020 at 070 1 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 Blood No organisms No growth Previous Culture-Anaerobic isolated preliminar y (test code = 38968-0) verifi ed result was Culture In Progress on 12/11/2020 at 100 1 CSTPrevious preliminary verified result was No growth a t 24 hours on 12/12/2020 at 070 1 CSTPrevious preliminary verified result was No growth a t 48 hours on 12/13/2020 at 070 1 CSTPrevious preliminary verified result was No growth a t 72 hours on 12/14/2020 at 070 1 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 Lab Interpretation Normal (test code = 42443-1) [facility] Culture - Peripheral # [id number] 13:01:00 Test Item Value Reference Range Interpretation Comments Blood Culture-Aerobic No organisms No growth Previo us (test code = 30683-9) isolated prelim inary verified result was Culture In Progress on 12/11/2020 at 100 1 CSTPrevious preliminary verified result was No growth a t 24 hours on 12/12/2020 at 070 1 CSTPrevious preliminary verified result was No growth a t 48 hours on 12/13/2020 at 070 1 CSTPrevious preliminary verified result was No growth a t 72 hours on 12/14/2020 at 070 1 [employer]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 Blood No organisms No growth Previous Culture-Anaerobic isolated preliminar y (test code = 18126-4) verifi ed result was Culture In Progress on 12/11/2020 at 100 1 CSTPrevious preliminary verified result was No growth a t 24 hours on 12/12/2020 at 070 1 CSTPrevious preliminary verified result was No growth a t 48 hours on 12/13/2020 at 070 1 CSTPrevious preliminary verified result was No growth a t 72 hours on 12/14/2020 at 070 1 [employer]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 No interval change in [...] stableappearance of intra and extrahepatic biliary ductal dilatation.[facility] GLUCOSE (AUTOMATED)2020-12-15 19:28:00 Test Item Value Reference Range Interpretation Comments POCT GLU (test code = 4982241403) 140 mg/dL 70-110 H Lab Interpretation (test code = Abnormal 57514-0) [facility] 15:26:00 Test Item Value Reference Range Interpretation Comments MAGNESIUM (test code = 5747341145) 2.2 mg/dL 1.7-2.4 Lab Interpretation (test code = Normal 01334-7) [facility] GLUCOSE (AUTOMATED)2020-12-15 15:15:00 Test Item Value Reference Range Interpretation Comments POCT GLU (test code = 9977317002) 181 mg/dL 70-110 H Lab Interpretation (test code = Abnormal 41530-4) [facility] (NA, K, CL, CO2, GLUCOSE, BUN, CREATININE, CA)2020-12-15 13:07:00 Test Item Value Reference Range Interpretation Comments NA (test code = 136 mmol/L 135-145 2310031886) K (test code = 3.6 mmol/L 3.5-5.0 8909368960) CL (test code = 96 mmol/L 98-108 L 2576742989) CO2 TOTAL (test code = 29 mmol/L 23-31 3971800590) AGAP (test code = 2-16 5115609238) BUN (test code = 12 mg/dL 7-23 3525163432) GLUCOSE (test code = 183 mg/dL 70-110 H 4372561975) CREATININE (test code = 0.70 mg/dL 0.60-1.25 1857254854) CALCIUM (test code = 9.2 mg/dL 8.6-10.6 9661427266) eGFR Calculation mL/min/1.73m2 (Non-) (test code = 8448743508) eGFR Calculation mL/min/1.73m2 () (test code = 0096765814) JAMES (test code = JAMES) Association of [...] tests). Lab Interpretation Abnormal (test code = 94677-4) [facility] WITH [id number] 12:32:00 Test Item Value Reference Range Interpretation [...] RDW-SD (test code = 44.4 fL 38.5-51.6 93371-9) RDW-CV (test code = 17.7 % 12.1-15.4 H 788-0) PLT (test code = See_Comment H [Automated 777-3) message] The system which generated this result transmit ronan reference range : 150 - 328 10*3/ ?L. The reference range was not u sed to interpret th is result as normal/abnormal . MPV (test code = 8.1 fL 9.8-13.0 L 67949-8) NRBC/100 WBC (test See_Comment [Automat ed code = 7873022919) message] The system which generated this result transmit ronan reference range : 0.0 - 10.0 /100 WBCs. The reference range was not used to interpret this result as normal/abnormal . NRBC x10^3 (test code <0.01 See_Comment [Auto mated = 3063804766) message] The system which generated this result transmit ronan reference range : 10*3/?L. The reference range was not used to interpret this result as normal/abnormal . GRAN MAT (NEUT) % 74.5 % (test code = 770-8) IMM GRAN % (test code 0.70 % = 1606737842) LYMPH % (test code = 17.4 % 736-9) MONO % (test code = 6.8 % 5905-5) EOS % (test code = 0.2 % 713-8) BASO % (test code = 0.4 % 706-2) GRAN MAT x10^3(ANC) 11.99 10*3/uL 1.99-6.95 H (test code = 0414334147) IMM GRAN x10^3 (test 0.11 10*3/uL 0.00-0.06 H code = 6048621949) LYMPH x10^3 (test code 2.80 10*3/uL 1.09-3.23 = 731-0) MONO x10^3 (test code 1.10 10*3/uL 0.36-1.02 H = 742-7) EOS x10^3 (test code = 0.03 10*3/uL 0.06-0.53 L 711-2) BASO x10^3 (test code 0.06 10*3/uL 0.01-0.09 = 704-7) Lab Interpretation Abnormal (test code = 20163-2) [facility]15 04:16:00 Test Item Value Reference Range Interpretation Comments POCT GLU (test code = 7440228705) 200 mg/dL 70-110 H Lab Interpretation (test code = Abnormal 54457-3) [facility] (THIAMINE), WHOLE [id number] 00:30:00 Test Item Value Reference Range Interpretation Comments Vitamin B1, Whole 136 nmol/L 70-180 INTERPRETI VE INFORMATION: Blood (test code = Vitamin B 1, Whole Blood 37172-5) This assay júnior ures the concentration o [...] its performance characteristics determined by [facility]. I t has not been cleared or approved by the [place] Food and Drug Administration. This test was performed i n a CLIA certified labor atory and is intended for clinical purposes.Perfor med By: [facility] [address] [place], [place] [address]W aboratory Director: Namrata Klein MD [facility] GLUCOSE (AUTOMATED)2020-12-14 23:35:00 Test Item Value Reference Range Interpretation Comments POCT GLU (test code = 7607499842) 151 mg/dL 70-110 H Lab Interpretation (test code = Abnormal 38149-6) [facility] GLUCOSE (AUTOMATED)2020-12-14 19:19:00 Test Item Value Reference Range Interpretation Comments POCT GLU (test code = 3547935732) 193 mg/dL 70-110 H Lab Interpretation (test code = Abnormal 62149-9) [facility] GLUCOSE (AUTOMATED)2020-12-14 15:22:00 Test Item Value Reference Range Interpretation Comments POCT GLU (test code = 0925268636) 221 mg/dL 70-110 H Lab Interpretation (test code = Abnormal 47123-4) [facility] GLUCOSE (AUTOMATED)2020-12-14 02:37:00 Test Item Value Reference Range Interpretation Comments POCT GLU (test code = 1493744074) 210 mg/dL 70-110 H Lab Interpretation (test code = Abnormal 45196-5) [facility] GLUCOSE (AUTOMATED)2020-12-13 23:33:00 Test Item Value Reference Range Interpretation Comments POCT GLU (test code = 2857504537) 182 mg/dL 70-110 H Lab Interpretation (test code = Abnormal 34562-5) [facility] GLUCOSE (AUTOMATED)2020-12-13 18:09:00 Test Item Value Reference Range Interpretation Comments POCT GLU (test code = 5985451587) 150 mg/dL 70-110 H Lab Interpretation (test code = Abnormal 54834-3) [facility] METABOLIC PANEL (NA, K, CL, CO2, GLUCOSE, BUN, CREATININE, CA)2020-12-13 16:27:00 Test Item Value Reference Range Interpretation Comments NA (test code = 136 mmol/L 135-145 9154786471) K (test code = 3.7 mmol/L 3.5-5.0 3280567233) CL (test code = 96 mmol/L 98-108 L 3564230443) CO2 TOTAL (test code = 29 mmol/L 23-31 5494371952) AGAP (test code = 2-16 7753557289) BUN (test code = 6 mg/dL 7-23 L 5135611648) GLUCOSE (test code = 212 mg/dL 70-110 H 6870673738) CREATININE (test code = 0.61 mg/dL 0.60-1.25 7711178756) CALCIUM (test code = 9.5 mg/dL 8.6-10.6 6135913355) eGFR Calculation mL/min/1.73m2 (Non-) (test code = 9558059370) eGFR Calculation mL/min/1.73m2 () (test code = 1246096826) JAMES (test code = JAMES) Association of [...] tests). Lab Interpretation Abnormal (test code = 64671-1) [facility] WITH [id number] 16:10:00 Test Item Value Reference Range Interpretation [...] RDW-SD (test code = 43.3 fL 38.5-51.6 23310-2) RDW-CV (test code = 16.2 % 12.1-15.4 H 788-0) PLT (test code = See_Comment H [Automated 777-3) message] The sy stem which generated this result transmitted reference range : 150 - 328 10*3/ ?L. The reference r torito was not used to interpret this result as normal/abnormal . MPV (test code = 8.2 fL 9.8-13.0 L 01826-8) NRBC/100 WBC (test See_Comment [Automat ed code = 5891638091) message] The system which generated this result transmitted reference range : 0.0 - 10.0 /100 WBCs. The refer ence range was not u sed to interpret th is result as normal/abnormal . NRBC x10^3 (test code <0.01 See_Comment [Auto mated = 6813774301) message] The s ystem which generated this result transmitted reference range : 10*3/?L. The reference range was not used to interpret this result as normal/abnormal . GRAN MAT (NEUT) % 86.2 % (test code = 770-8) IMM GRAN % (test code 0.70 % = 0720381159) LYMPH % (test code = 10.2 % 736-9) MONO % (test code = 2.5 % 5905-5) EOS % (test code = 0.1 % 713-8) BASO % (test code = 0.3 % 706-2) GRAN MAT x10^3(ANC) 9.61 10*3/uL 1.99-6.95 H (test code = 0245767197) IMM GRAN x10^3 (test 0.08 10*3/uL 0.00-0.06 H code = 1876337074) LYMPH x10^3 (test code 1.14 10*3/uL 1.09-3.23 = 731-0) MONO x10^3 (test code 0.28 10*3/uL 0.36-1.02 L = 742-7) EOS x10^3 (test code = <0.03 0.06-0.53 L 711-2) BASO x10^3 (test code 0.03 10*3/uL 0.01-0.09 = 704-7) Lab Interpretation Abnormal (test code = 61090-4) [facility]2020-[facility]13 14:16:00 Test Item Value Reference Range Interpretation Comments POCT GLU (test code = 6763472341) 236 mg/dL 70-110 H Lab Interpretation (test code = Abnormal 98176-2) [facility] COVID [id number] 04:58:00COVID DMT InterpretationInterpretation/Recommendations: Molecular NAAT Tests for [...] record. [facility] SERVICESCOVID SnsrczgMLWM-OpJ-7 Rapid ID NOW (no units) ? ? Date ? Value ? 12/11/2020 ? Not Detected ? ? ? 11/16/2020 ? Not Detected ? ? ? 08/21/2020 ? Not Detected ? [facility] 2020-12-13 03:11:00 Test Item Value Reference Range Interpretation Comments POCT GLU (test code = 1608309246) 171 mg/dL 70-110 H Lab Interpretation (test code = Abnormal 16514-5) [facility] GLUCOSE (AUTOMATED)2020-12-13 00:00:00 Test Item Value Reference Range Interpretation Comments POCT GLU (test code = 3228266536) 118 mg/dL 70-110 H Lab Interpretation (test code = Abnormal 65136-9) [facility]2020-12-12 20:29:00 Test Item Value Reference Range Interpretation Comments POCT GLU (test code = 6150077429) 173 mg/dL 70-110 H Lab Interpretation (test code = Abnormal 16915-7) [facility] [id number] 19:56:17 1. ?Hepatic steatosis. However, limited evaluation [...] main portal veinwasevaluated with color Doppler imaging. Guest Service Team Leader images were obtainedfor the record. COMPARISON: [...] normal where visualized. SPLEEN:No images were obtained. [facility], Radiant Results Inft User - 12/12/2020 1:57 PM CSTEXAM: US ABDOMEN LIMITEDHISTORY: 70 years-old male with RUQ ultrasound to assess for common bileduct dilation .TECHNIQUE: Limited abdominal ultrasound focused on the liver, biliarysystem, pancreas, and spleen was performed. The main portal vein wasevaluated with color Doppler imaging. Guest Service Team Leader images wereobtainedfor the record.COMPARISON: Ultrasound abdomen 11/17/2028. [...] reviewed this study and agree with the abovereport.[facility]2020-12-12 19:24:00 Test Item Value Reference Range Interpretation Comments POCT GLU (test code = 7295584798) 230 mg/dL 70-110 H Lab Interpretation (test code = Abnormal 41696-9) [facility] CHEST 1 [id number] 15:16:46 Low lung volumes with mild perihilar [...] reviewed this study and agree with theabove report.[facility]2020-12-12 14:34:00 Test Item Value Reference Range Interpretation Comments POCT GLU (test code = 2246721243) 225 mg/dL 70-110 H Lab Interpretation (test code = Abnormal 14671-4) [facility] [id number] 13:28:00 Test Item Value Reference Range Interpretation Comments URINE CULTURE (test < 10,000 CFU/mL mixed code = 630-4) aerobic organisms - suggests endogenous microbial contamination [facility] (NA, K, CL, CO2, GLUCOSE, BUN, CREATININE, CA)2020-12-12 10:05:00 Test Item Value Reference Range Interpretation Comments NA (test code = 136 mmol/L 135-145 9850248304) K (test code = 3.5 mmol/L 3.5-5.0 2320459976) CL (test code = 100 mmol/L 98-108 5668527744) CO2 TOTAL (test code = 31 mmol/L 23-31 0784980694) AGAP (test code = 2-16 4844037078) BUN (test code = 7 mg/dL 7-23 3803621707) GLUCOSE (test code = 259 mg/dL 70-110 H 3236093059) CREATININE (test code = 0.63 mg/dL 0.60-1.25 4525728716) CALCIUM (test code = 8.5 mg/dL 8.6-10.6 L 7312188187) eGFR Calculation mL/min/1.73m2 (Non-) (test code = 0592991669) eGFR Calculation mL/min/1.73m2 () (test code = 9045088754) JAMES (test code = JAMES) Association of [...] tests). Lab Interpretation Abnormal (test code = 29480-1) [facility] TexasMagnesium [id number] 10:05:00 Test Item Value Reference Range Interpretation Comments MAGNESIUM (test code = 2257150442) 1.9 mg/dL 1.7-2.4 Lab Interpretation (test code = Normal 54440-5) [facility] with [id number] 09:48:00 Test Item Value Reference Range Interpretation [...] RDW-SD (test code = 46.0 fL 38.5-51.6 60155-9) RDW-CV (test code = 16.1 % 12.1-15.4 H 788-0) PLT (test code = See_Comment H [Automated 777-3) message] The sy stem which generated this result transmitted reference range : 150 - 328 10*3/ ?L. The reference r torito was not used to interpret this result as normal/abnormal . MPV (test code = 8.6 fL 9.8-13.0 L 98979-2) NRBC/100 WBC (test See_Comment [Automat ed code = 0044006685) message] The system which generated this result transmitted reference range : 0.0 - 10.0 /100 WBCs. The refer ence range was not u sed to interpret th is result as normal/abnormal . NRBC x10^3 (test code <0.01 See_Comment [Auto mated = 4800557557) message] The s ystem which generated this result transmitted reference range : 10*3/?L. The reference range was not used to interpret this result as normal/abnormal . GRAN MAT (NEUT) % 70.2 % (test code = 770-8) IMM GRAN % (test code 0.30 % = 2755789978) LYMPH % (test code = 18.8 % 736-9) MONO % (test code = 5.0 % 5905-5) EOS % (test code = 5.2 % 713-8) BASO % (test code = 0.5 % 706-2) GRAN MAT x10^3(ANC) 6.05 10*3/uL 1.99-6.95 (test code = 5637555306) IMM GRAN x10^3 (test 0.03 10*3/uL 0.00-0.06 code = 7035730326) LYMPH x10^3 (test code 1.62 10*3/uL 1.09-3.23 = 731-0) MONO x10^3 (test code 0.43 10*3/uL 0.36-1.02 = 742-7) EOS x10^3 (test code = 0.45 10*3/uL 0.06-0.53 711-2) BASO x10^3 (test code 0.04 10*3/uL 0.01-0.09 = 704-7) Lab Interpretation Abnormal (test code = 04214-6) [facility]2020[facility]-12 03:42:00 Test Item Value Reference Range Interpretation Comments POCT GLU (test code = 196 mg/dL 70-110 H Notifi ed Provider [id number]) Lab Interpretation (test Abnormal code = 61155-4) [facility] 02:24:00 Test Item Value Reference Range Interpretation Comments FOLATE SER (test code = 4517253981) 5.8 ng/mL 3.0-20.0 Lab Interpretation (test code = Normal 44606-4) [facility]IT[facility] B12, [id number] 00:55:00 Test Item Value Reference Range Interpretation Comments VIT B12 (test code = 844 pg/mL 240-930 5889897050) JAMES (test code = JAMES) Biotin has been reported to cause a positive bias, interpret results relative to patient's use of biotin. Lab Interpretation (test Normal code = 95093-4) [facility]2020-12-12 00:14:00 Test Item Value Reference Range Interpretation Comments POCT GLU (test code = 2570401198) 164 mg/dL 70-110 H Lab Interpretation (test code = Abnormal 25703-1) [facility] TexasCREATINE [id number] 23:42:00 Test Item Value Reference Range Interpretation Comments CK (test code = 4579446225) <20 33-194 L Lab Interpretation (test code = Abnormal 83084-5) [facility] Texas[facility]YROID STIMULATING [id number] 23:17:00 Test Item Value Reference Range Interpretation Comments TSH (test code = See_Comment Biotin has been 8151678403) reported to cau se a negative bias, interpret resul ts relative to pat ient's use of biotin. [Automated mess age] The system [employer] h generated this result transmitted ref erence range: 0.45 - 4 .70 mIU/L. The refe rence range was not u sed to interpret this result as normal/abnor mal. Lab Interpretation (test Normal code = 35466-8) [facility] TexasXR HIPS 3 VW [id number] 21:41:53No appreciable fracture lines. RL: 6200 ICAL [...] No osseous erosions.IMPRESSIONNo appreciable fracture lines.RL: 6200 [facility]00 Test Item Value Reference Range Interpretation Comments Procalcitonin (test 0.13 ng/mL <0.07 H code = 2917891925) JAMES (test code = JAMES) INTERPRETATION OF [...] For further information please refer to:[email or web address] Lab Interpretation Abnormal (test code = 51657-4) [facility]POMD [facility]SE (AUTOMATED)2020-12-11 19:07:00 Test Item Value Reference Range Interpretation Comments POCT GLU (test code = 8657155544) 274 mg/dL 70-110 H Lab Interpretation (test code = Abnormal 84618-0) [facility]MAGNESIUM2021-03-01 18:31:00 Test Item Value Reference Range Interpretation Comments MAGNESIUM (test code = 1958049433) 1.9 mg/dL 1.7-2.4 Lab Interpretation (test code = Normal 61727-5) [facility] TexasFERRITIN [id number] 18:31:00 Test Item Value Reference Range Interpretation Comments FERRITIN (test code = 178.0 ng/mL 18.0-464.0 1907458676) JAMES (test code = JAMES) Biotin has been reported to cause a negative bias, interpret results relative to patient's use of biotin. Lab Interpretation (test Normal code = 17540-6) [facility] HEAD WO [id number] 14:36:47 No acute intracranial abnormality. Dilated ventricles out of proportion to the caliber of sulci with diffuseproportional enlargement of the subarachnoid spaces, nonspecific findingmay represent central predominant volume loss, however, normal pressurehydrocephalus can potentially have similar appearance in the appropriateclinical setting. Preliminary Report Dictated by Resident: Katelyn Perez MD., have reviewed this study and agree [...] appropria teclinical setting.Preliminary Report Dictated by Resident: Roxane Jiang, Katelyn Martin MD., have reviewed this study and agree with the abovereport.[facility]URINALYSIS2021-[facility]-01 14:28:00 Test Item Value Reference Range Interpretation Comments APPEARANCE (test code = Clear Clear 7652723703) COLOR (test code = Yellow Yellow 6505307575) PH (test code = 4.8-8.0 6171229153) SP GRAVITY (test code = 1.003-1.030 1179910266) GLU U QUAL (test code = 500 mg/dL Normal A 9525566810) BLOOD (test code = Negative Negative 8689778043) KETONES (test code = 5 mg/dL Negative A 8205755943) PROTEIN (test code = Negative Negative 2887-8) UROBILIN (test code = Normal Normal 3345940907) BILIRUBIN (test code = Negative Negative 7136166677) NITRITE (test code = Negative Negative 4477942348) LEUK RYAN (test code = Negative Negative 6687742459) RBC/HPF (test code = See_Comment [Autom ated message] 2443227979) The system [employer] generated this result transmit ronan reference range : 0 - 3 HPF. The refe rence range was not u sed to interpret th is result as normal/abnormal . WBC/HPF (test code = See_Comment [Autom ated message] 0910230777) The system [employer] generated this result transmit ronan reference range : 0 - 5 HPF. The refe rence range was not u sed to interpret th is result as normal/abnormal . BACTERIA (test code = Negative Negative 7764742482) MUCOUS (test code = Slight Negative LPF A 6554900501) SQ EPITH (test code = HPF 0605654833) Lab Interpretation (test Abnormal code = 78339-8) [facility] TexasCOVID-19 (ID NOW RAPID TESTING)2020-12-11 13:10:00 Test Item Value Reference Range Interpretation Comments SARS-CoV-2 Rapid ID NOW Not Detected Not Detected (test code = 35659-5) JAMES (test code = JAMES) ID NOW COVID-19 Assay is an isothermal nucleic acid amplification test intended for the qualitative detection of nucleic acid from SARS-CoV-2 viral RNA in nasopharyngeal (PURIFYING PLANT OPERATOR) specimens. It is used under Emergency [...] indicated. Lab Interpretation Normal (test code = 68216-0) [facility]. METABOLIC PANEL (38255)2020-12-11 12:29:00 Test Item Value Reference Range Interpretation Comments NA (test code = 136 mmol/L 135-145 1756785553) K (test code = 3.5 mmol/L 3.5-5.0 1362410337) CL (test code = 95 mmol/L 98-108 L 5465722336) CO2 TOTAL (test code = 35 mmol/L 23-31 H 2220085045) AGAP (test code = 2-16 9767471766) BUN (test code = 9 mg/dL 7-23 4510614018) GLUCOSE (test code = 329 mg/dL 70-110 H 8595933554) CREATININE (test code = 0.72 mg/dL 0.60-1.25 5413304289) TOTAL BILI (test code = 0.6 mg/dL 0.1-1.3 1481345335) CALCIUM (test code = 9.0 mg/dL 8.6-10.6 3514910818) T PROTEIN (test code = 6.8 g/dL 6.3-8.2 3999475568) ALBUMIN (test code = 3.8 g/dL 3.5-5.0 4356420366) ALK PHOS (test code = 288 U/L 34-122 H 0422770872) ALTv (test code = 46 U/L 5-50 1742-6) AST(SGOT) (test code = 38 U/L 13-40 6930048703) eGFR Calculation mL/min/1.73m2 (Non-) (test code = 5221637862) eGFR Calculation mL/min/1.73m2 () (test code = 1027910330) JAMES (test code = JAMES) Association of [...] tests). Lab Interpretation Abnormal (test code = 96614-8) [facility] TexasLactic Acid Whole [id number] 12:23:00 Test Item Value Reference Range Interpretation Comments LACTIC ACID (test code = 2.09 mmol/L 0.50-2.20 7003634094) Lab Interpretation (test code = Normal 43965-9) [facility] WITH [id number] 12:17:00 Test Item Value Reference Range Interpretation Comments WBC (test code = See_Comment H [Automated 0640-2) message] The sy stem which generated this [...] RDW-SD (test code = 44.9 fL 38.5-51.6 01853-3) RDW-CV (test code = 15.9 % 12.1-15.4 H 788-0) PLT (test code = See_Comment H [Automated 777-3) message] The sy stem which generated this result transmitted reference range : 150 - 328 10*3/ ?L. The reference r torito was not used to interpret this result as normal/abnormal . MPV (test code = 8.3 fL 9.8-13.0 L 83406-1) NRBC/100 WBC (test See_Comment [Automat ed code = 9290171618) message] The system which generated this result transmitted reference range : 0.0 - 10.0 /100 WBCs. The refer ence range was not u sed to interpret th is result as normal/abnormal . NRBC x10^3 (test code <0.01 See_Comment [Auto mated = 4682911153) message] The s ystem which generated this result transmitted reference range : 10*3/?L. The reference range was not used to interpret this result as normal/abnormal . GRAN MAT (NEUT) % 77.9 % (test code = 770-8) IMM GRAN % (test code 0.50 % = 0693075513) LYMPH % (test code = 12.2 % 736-9) MONO % (test code = 5.2 % 5905-5) EOS % (test code = 3.7 % 713-8) BASO % (test code = 0.5 % 706-2) GRAN MAT x10^3(ANC) 9.57 10*3/uL 1.99-6.95 H (test code = 7841616893) IMM GRAN x10^3 (test 0.06 10*3/uL 0.00-0.06 code = 9218535950) LYMPH x10^3 (test code 1.50 10*3/uL 1.09-3.23 = 731-0) MONO x10^3 (test code 0.64 10*3/uL 0.36-1.02 = 742-7) EOS x10^3 (test code = 0.46 10*3/uL 0.06-0.53 711-2) BASO x10^3 (test code 0.06 10*3/uL 0.01-0.09 = 704-7) Lab Interpretation Abnormal (test code = 24125-6) [facility] ONLY COVID [id number] 18:43:00COVID DMT InterpretationInterpretation/Recommendations: Molecular NAAT Test Results [...] a nasopharyngeal sample, there is approximately a jgg-bp-ucfhj chance that the patient was infected and [...] based upon aggregate data pooled from the [facility] medical recordincluding both current and prior COVID-19 related testing results for the following tests offered atour institution:A. Tests for the Identification of SARS-CoV-2 RNA:SARS-CoV-2 PCR assays including [place] Aptima, [place] Fusion, Barrett RealTime, and FinalCAD Xpert Xpress. SARS-CoV-2 Rapid ID NOW by the ID NOW assay. ? B. Tests for the Identification of SARS-CoV-2 Antibodies: Chemiluminescent immunoassays including Access SARS-CoV-2 IgM (DXI 600), PushButton LabsS Bfmk-RUHN-OgI-2 IgG (Vitros 5600 and Vitros 3600), and Barrett SARS-CoV-2 IgG (LENGTH CONTROL TESTER I System). These interpretation comments assume that only the above testing was utilized and that the approved acceptable specimen type(s) were used for a given test. These interpretations are autopopulated into [employer] based on computerized algorithms matching an interpretation [...] setting. [facility]OR[facility] SERVICESCOVID XsfuumlJDJT-OvD-1 Rapid ID NOW (no units) ? ? Date ? Value ? 08/21/2020 ? Not Detected ? [facility]2020-08-23 18:25:00 Test Item Value Reference Range Interpretation Comments POCT GLU (test code = 8447208560) 297 mg/dL 70-110 H Lab Interpretation (test code = Abnormal 59855-3) [facility] GLUCOSE (AUTOMATED)2020-08-23 14:25:00 Test Item Value Reference Range Interpretation Comments POCT GLU (test code = 7487648018) 181 mg/dL 70-110 H Lab Interpretation (test code = Abnormal 59248-4) [facility] Metabolic Panel (NA, K, CL, CO2, GLUCOSE, BUN, CREATININE, CA)2020-08-23 11:45:00 Test Item Value Reference Range Interpretation Comments NA (test code = 132 mmol/L 135-145 L 4797476045) K (test code = 4.0 mmol/L 3.5-5 4888551216) CL (test code = 96 mmol/L 98-108 L 1961643917) CO2 TOTAL (test code = 33 mmol/L 23-31 H 5352725484) AGAP (test code = 2-16 0915596285) BUN (test code = 9 mg/dL 7-23 4410898799) GLUCOSE (test code = 176 mg/dL 70-110 H 3953544926) CREATININE (test code = 0.66 mg/dL 0.6-1.25 6080107845) CALCIUM (test code = 8.5 mg/dL 8.6-10.6 L 2729102645) eGFR Calculation mL/min/1.73m2 (Non-) (test code = 2830633968) eGFR Calculation mL/min/1.73m2 () (test code = 8945968400) JAMES (test code = JAMES) Association of [...] tests). Lab Interpretation Abnormal (test code = 53609-5) [facility] TexasMagn[facility] [id number] 11:45:00 Test Item Value Reference Range Interpretation Comments MAGNESIUM (test code = 2376674694) 2.0 mg/dL 1.7-2.4 Lab Interpretation (test code = Normal 99743-8) [facility] with Gpdzphgipvcr5590-66-54 11:38:00 Test Item Value Reference Range Interpretation Comments WBC (test code = See_Comment [Automated 4618-2) message] The sy stem which generated this result transmitted reference range : 4.20 - 10.70 10*3/?L. The reference range was not used to interpret this result as normal/abnormal . RBC (test code = See_Comment [Automated 061-4) message] The sy stem which generated this [...] RDW-SD (test code = 41.8 fL 38.5-51.6 40144-3) RDW-CV (test code = 14.3 % 12.1-15.4 788-0) PLT (test code = See_Comment H [Automated 777-3) message] The sy stem which generated this result transmitted reference range : 150 - 328 10*3/ ?L. The reference r torito was not used to interpret this result as normal/abnormal . MPV (test code = 8.0 fL 9.8-13 L 25565-9) NRBC/100 WBC (test See_Comment [Automat ed code = 3551221261) message] The system which generated this result transmitted reference range : 0.0 - 10.0 /100 WBCs. The refer ence range was not u sed to interpret th is result as normal/abnormal . NRBC x10^3 (test code <0.01 See_Comment [Auto mated = 2888634771) message] The s ystem which generated this result transmitted reference range : 10*3/?L. The reference range was not used to interpret this result as normal/abnormal . GRAN MAT (NEUT) % 61.5 % (test code = 770-8) IMM GRAN % (test code 2.00 % = 7660505524) LYMPH % (test code = 25.5 % 736-9) MONO % (test code = 6.3 % 5905-5) EOS % (test code = 3.7 % 713-8) BASO % (test code = 1.0 % 706-2) GRAN MAT x10^3(ANC) 5.29 10*3/uL 1.99-6.95 (test code = 2503563344) IMM GRAN x10^3 (test 0.17 10*3/uL 0-0.06 H code = 0264707685) LYMPH x10^3 (test code 2.19 10*3/uL 1.09-3.23 = 731-0) MONO x10^3 (test code 0.54 10*3/uL 0.36-1.02 = 742-7) EOS x10^3 (test code = 0.32 10*3/uL 0.06-0.53 711-2) BASO x10^3 (test code 0.09 10*3/uL 0.01-0.09 = 704-7) Lab Interpretation Abnormal (test code = 91037-9) [facility] GLUCOSE (AUTOMATED)2020-08-23 10:22:00 Test Item Value Reference Range Interpretation Comments POCT GLU (test code = 8424522769) 164 mg/dL 70-110 H Lab Interpretation (test code = Abnormal 63723-1) [facility] GLUCOSE (AUTOMATED)2020-08-23 05:56:00 Test Item Value Reference Range Interpretation Comments POCT GLU (test code = 5575960983) 242 mg/dL 70-110 H Lab Interpretation (test code = Abnormal 11660-1) [facility] GLUCOSE (AUTOMATED)2020-08-23 03:02:00 Test Item Value Reference Range Interpretation Comments POCT GLU (test code = 8918469653) 210 mg/dL 70-110 H Lab Interpretation (test code = Abnormal 55831-1) [facility] GLUCOSE (AUTOMATED)2020-08-22 23:40:00 Test Item Value Reference Range Interpretation Comments POCT GLU (test code = 1020676428) 267 mg/dL 70-110 H Lab Interpretation (test code = Abnormal 70298-2) [facility] GLUCOSE (AUTOMATED)2020-08-22 19:08:00 Test Item Value Reference Range Interpretation Comments POCT GLU (test code = 0105898934) 191 mg/dL 70-110 H Lab Interpretation (test code = Abnormal 05867-1) [facility] GLUCOSE (AUTOMATED)2020-08-22 13:50:00 Test Item Value Reference Range Interpretation Comments POCT GLU (test code = 1019654184) 174 mg/dL 70-110 H Lab Interpretation (test code = Abnormal 79256-1) [facility] [id number] 12:59:00 Test Item Value Reference Range Interpretation Comments URINE CULTURE (test No aerobic growth (< code = 630-4) 1000 CFU/mL) [facility] with Xxamzhvbvfgc5999-04-95 11:28:00 Test Item Value Reference Range Interpretation [...] RDW-SD (test code = 42.5 fL 38.5-51.6 57940-3) RDW-CV (test code = 14.5 % 12.1-15.4 788-0) PLT (test code = See_Comment H [Automated 777-3) message] The sy stem which generated this result transmitted reference range : 150 - 328 10*3/ ?L. The reference r torito was not used to interpret this result as normal/abnormal . MPV (test code = 8.0 fL 9.8-13 L 58081-6) NRBC/100 WBC (test See_Comment [Automat ed code = 4227268582) message] The system which generated this result transmitted reference range : 0.0 - 10.0 /100 WBCs. The refer ence range was not u sed to interpret th is result as normal/abnormal . NRBC x10^3 (test code <0.01 See_Comment [Auto mated = 7349551049) message] The s ystem which generated this result transmitted reference range : 10*3/?L. The reference range was not used to interpret this result as normal/abnormal . GRAN MAT (NEUT) % 69.1 % (test code = 770-8) IMM GRAN % (test code 2.20 % = 6879232154) LYMPH % (test code = 20.9 % 736-9) MONO % (test code = 5.8 % 5905-5) EOS % (test code = 1.0 % 713-8) BASO % (test code = 1.0 % 706-2) GRAN MAT x10^3(ANC) 6.51 10*3/uL 1.99-6.95 (test code = 2504283932) IMM GRAN x10^3 (test 0.21 10*3/uL 0-0.06 H code = 2433612192) LYMPH x10^3 (test code 1.97 10*3/uL 1.09-3.23 = 731-0) MONO x10^3 (test code 0.55 10*3/uL 0.36-1.02 = 742-7) EOS x10^3 (test code = 0.09 10*3/uL 0.06-0.53 711-2) BASO x10^3 (test code 0.09 10*3/uL 0.01-0.09 = 704-7) BASO STIPPLING (test Present A code = 703-9) BANDS (test code = Increased A 9122498311) TOXIC CHANGES (test Present A code = 803-7) Lab Interpretation Abnormal (test code = 05956-7) [facility] Metabolic Panel (NA, K, CL, CO2, GLUCOSE, BUN, CREATININE, CA)2020-08-22 11:12:00 Test Item Value Reference Range Interpretation Comments NA (test code = 135 mmol/L 135-145 0672065821) K (test code = 3.6 mmol/L 3.5-5 3300190629) CL (test code = 99 mmol/L 98-108 1353065323) CO2 TOTAL (test code = 31 mmol/L 23-31 0370504725) AGAP (test code = 2-16 2354646828) BUN (test code = 9 mg/dL 7-23 2516732829) GLUCOSE (test code = 198 mg/dL 70-110 H 2517305919) CREATININE (test code = 0.72 mg/dL 0.6-1.25 3800159224) CALCIUM (test code = 8.3 mg/dL 8.6-10.6 L 0373830189) eGFR Calculation mL/min/1.73m2 (Non-) (test code = 5866401414) eGFR Calculation mL/min/1.73m2 () (test code = 8007517880) JAMES (test code = JAMES) Association of [...] tests). Lab Interpretation Abnormal (test code = 36971-6) [facility] TexasMagn[facility] Itpln7858-71-32 11:12:00 Test Item Value Reference Range Interpretation Comments MAGNESIUM (test code = 9273364686) 2.0 mg/dL 1.7-2.4 Lab Interpretation (test code = Normal 21095-1) [facility] (Total Cholesterol, Triglycerides, HDL) - Rqtoccb7372-26-58 11:12:00 Test Item Value Reference Range Interpretation Comments CHOL (test code = 155 mg/dL 120-200 6813694676) HDL (test code = 42 mg/dL >40 2824652858) HDLC RATIO (test code = See_Comment [Au tomated message] 3487982346) The system [employer] generated this result transmit ronan reference range : <=5.0. The refe rence range was not u sed to interpret th is result as normal/abnormal . TRIG (test code = 186 mg/dL 30-170 H 9105782784) LDL CHOL (test code = 76 mg/dL See_Comment [Auto mated message] 58568-8) The system [employer] generated this result transmit ronan reference range : <=160. The refe rence range was not u sed to interpret th is result as normal/abnormal . VLDL (test code = 37 mg/dL 5-60 1072104823) Lab Interpretation (test Abnormal code = 97531-5) [facility]HEPAT[facility] FUNCTION PANEL (93109) (ALB,T.PRO,BILI T,BU/BC,ALT,AST,ALK PHOS)2020-08-22 11:12:00 Test Item Value Reference Range Interpretation Comments TOTAL BILI (test code = 7590289537) 0.6 mg/dL 0.1-1.1 BILI UNCON (test code = 5006486679) 0.2 mg/dL 0.1-1.1 BILI CONJ (test code = 1413727095) 0.0 mg/dL 0-0.3 T PROTEIN (test code = 3317132481) 6.0 g/dL 6.3-8.2 L ALBUMIN (test code = 4323039181) 2.8 g/dL 3.5-5 L ALK PHOS (test code = 2784294205) 222 U/L 34-122 H ALTv (test code = 1742-6) 27 U/L 5-50 AST(SGOT) (test code = 5878995523) 30 U/L 13-40 Lab Interpretation (test code = Abnormal 87693-3) [facility]2020-08-22 10:11:00 Test Item Value Reference Range Interpretation Comments POCT GLU (test code = 2061651781) 196 mg/dL 70-110 H Lab Interpretation (test code = Abnormal 39585-5) [facility] GLUCOSE (AUTOMATED)2020-08-22 07:15:00 Test Item Value Reference Range Interpretation Comments POCT GLU (test code = 9216920137) 183 mg/dL 70-110 H Lab Interpretation (test code = Abnormal 13088-5) [facility] GLUCOSE (AUTOMATED)2020-08-22 02:30:00 Test Item Value Reference Range Interpretation Comments POCT GLU (test code = 1499280502) 295 mg/dL 70-110 H Lab Interpretation (test code = Abnormal 45634-0) [facility] GLUCOSE (AUTOMATED)2020-08-21 23:46:00 Test Item Value Reference Range Interpretation Comments POCT GLU (test code = 9261010277) 258 mg/dL 70-110 H Lab Interpretation (test code = Abnormal 32069-1) [facility] TexasC-REACTIVE FBVNFGF4870-05-27 18:50:00 Test Item Value Reference Range Interpretation Comments CRP (test code = 5538596660) 15.5 mg/dL <0.8 H Lab Interpretation (test code = Abnormal 85872-5) [facility] GLUCOSE (AUTOMATED)2020-08-21 18:21:00 Test Item Value Reference Range Interpretation Comments POCT GLU (test code = 6830515734) 297 mg/dL 70-110 H Lab Interpretation (test code = Abnormal 89072-3) [facility] TexasETHANOL2020-11-09 16:24:00 Test Item Value Reference Range Interpretation Comments ALCOHOL (test code = <10 mg/dL 5280325297) JAMES (test code = Toxic Greater than or JAMES) equal to 80 mg/dL. NOTE: Whole blood values are approximately 10% to 15% lower than serum and plasma. [facility] TexasGALV/CLC ONLY - URINE DRUG (IMMUNOASSAY) - 4 ER [id number] 15:36:00 Test Item Value Reference Range Interpretation Comments AMPHET (test code = Negative Negative 1123912869) Cocaine Metabolite (test Negative Negative code = 2608725197) OPIATES (test code = Presumptive Positive Negative A 2207385217) THC (test code = Negative Negative 1058190560) JAMES (test code = JAMES) Urine Drug Cutoff Ranges Amphetamine: ? 1,000 ng/mLCocaine: ? 150 ng/mLOpiates: ? 300 ng/mLCannabinoids: ?50 ng/mL The results are to be used only for medical (i.e., treatment) purposes. Unconfirmed screening results must not be used for non-medical purposes (e.g., employment testing, legal testing). Lab Interpretation (test Abnormal code = 35772-1) [facility] TexasGALV ONLY - SYPHILIS IGG/LWJ3617-87-82 15:04:00 Test Item Value Reference Range Interpretation Comments Syphilis IgG/IgM (test Non-reactive Non-reactive code = 61165-6) JAMES (test code = JAMES) Non-reactive - No serologic evidence of T. pallidum infection. Cannot exclude incubating or early syphilis. Submit a second specimen in 2-4 weeks if syphilis is clinically suspected. Equivocal - Further testing to follow. Reactive - Further testing to follow. Lab Interpretation (test Normal code = 97134-7) [facility] TexasUrinalysis2020-11-09 14:52:00 Test Item Value Reference Range Interpretation Comments APPEARANCE (test code = Clear Clear 5193755336) COLOR (test code = Yellow Yellow 4212018549) PH (test code = 4.8-8.0 0066053308) SP GRAVITY (test code = 1.003-1.030 1839104366) GLU U QUAL (test code = 500 mg/dL Normal A 1314267379) BLOOD (test code = Negative Negative 2639277505) KETONES (test code = 20 mg/dL Negative A 8513222147) PROTEIN (test code = Negative Negative 2887-8) UROBILIN (test code = Normal Normal 2920455906) BILIRUBIN (test code = Negative Negative 6821890134) NITRITE (test code = Negative Negative 1159451693) LEUK RYAN (test code = Negative Negative 5734445615) RBC/HPF (test code = <1 See_Comment [Autom ated message] 6383906484) The system [employer] generated this result transmit ronan reference range : 0 - 3 HPF. The refe rence range was not u sed to interpret th is result as normal/abnormal . WBC/HPF (test code = See_Comment [Autom ated message] 9298624474) The system [employer] generated this result transmit ronan reference range : 0 - 5 HPF. The refe rence range was not u sed to interpret th is result as normal/abnormal . BACTERIA (test code = Negative Negative 8819107130) MUCOUS (test code = Slight Negative LPF A 9020101305) Lab Interpretation (test Abnormal code = 37840-7) [facility] THRMPLAS [id number] 13:45:00 Test Item Value Reference Range Interpretation Comments APTT Patient (test code = See_Comment [ Automated message] 3173-2) The system [employer] generated this result transmitted ref erence range: 26 - 36 Seconds. The re ference range was not u sed to interpret this result as normal/abnor mal. Lab Interpretation (test Normal code = 28931-2) [facility]2020-08-21 13:45:00 Test Item Value Reference Range Interpretation Comments POCT GLU (test code = 5043328879) 246 mg/dL 70-110 H Lab Interpretation (test code = Abnormal 15855-0) [facility]2 AG-AB WITH [id number] 12:32:00 Test Item Value Reference Range Interpretation Comments HIV Negative Negative Semi-quantitative (test code = 65457-3) JAMES (test code = Non-reactive for HIV-1 JAMES) antigen and HIV-1/HIV-2 antibodies. ?No laboratory evidence of HIV infection. ?Repeat in 2-4 weeks if acute HIV infection is suspected. [facility]CBC WITH [id number] 12:18:00 Test Item Value Reference Range Interpretation Comments WBC (test code = See_Comment [Automated 1101-2) message] The sy stem which generated this result transmitted reference range : 4.20 - 10.70 10*3/?L. The reference range was not used to interpret this result as normal/abnormal . RBC (test code = See_Comment [Automated 113-0) message] The sy stem which generated this [...] RDW-SD (test code = 44.4 fL 38.5-51.6 43793-0) RDW-CV (test code = 14.5 % 12.1-15.4 788-0) PLT (test code = See_Comment H [Automated 777-3) message] The sy stem which generated this result transmitted reference range : 150 - 328 10*3/ ?L. The reference r torito was not used to interpret this result as normal/abnormal . MPV (test code = 8.5 fL 9.8-13 L 83854-5) NRBC/100 WBC (test See_Comment [Automat ed code = 5716592834) message] The system which generated this result transmitted reference range : 0.0 - 10.0 /100 WBCs. The refer ence range was not u sed to interpret th is result as normal/abnormal . NRBC x10^3 (test code <0.01 See_Comment [Auto mated = 6158955027) message] The s ystem which generated this result transmitted reference range : 10*3/?L. The reference range was not used to interpret this result as normal/abnormal . GRAN MAT (NEUT) % 90.4 % (test code = 770-8) IMM GRAN % (test code 1.30 % = 3496601357) LYMPH % (test code = 7.1 % 736-9) MONO % (test code = 0.5 % 5905-5) EOS % (test code = 0.1 % 713-8) BASO % (test code = 0.6 % 706-2) GRAN MAT x10^3(ANC) 7.74 10*3/uL 1.99-6.95 H (test code = 8808984687) IMM GRAN x10^3 (test 0.11 10*3/uL 0-0.06 H code = 2971526147) LYMPH x10^3 (test code 0.61 10*3/uL 1.09-3.23 L = 731-0) MONO x10^3 (test code 0.04 10*3/uL 0.36-1.02 L = 742-7) EOS x10^3 (test code = <0.03 0.06-0.53 L 711-2) BASO x10^3 (test code 0.05 10*3/uL 0.01-0.09 = 704-7) POLYCHROMASIA (test 2+ See_Comment [Automa ronan code = 57732-5) message] The system which generated this result transmitted reference range : 2+. The referen ce range was not u sed to interpret th is result as normal/abnormal . BANDS (test code = Increased A 9665670197) Lab Interpretation Abnormal (test code = 40056-9) [facility]PROCALCITONIN2020-11-09 11:48:00 Test Item Value Reference Range Interpretation Comments Procalcitonin (test 0.36 ng/mL <0.07 H code = 9617952244) JAMES (test code = JAMES) INTERPRETATION OF [...] For further information please refer to:[email or web address] Lab Interpretation Abnormal (test code = 79523-2) [facility] TexasLACTATE [id number] 10:53:00 Test Item Value Reference Range Interpretation Comments LDH (test code = 0355761712) 351 U/L 300-600 Lab Interpretation (test code = Normal 76129-4) [facility] TexasSEDIMENTATION [id number] 10:07:00 Test Item Value Reference Range Interpretation Comments ESR (test code = See_Comment H [Automated message] 0649440549) The system [employer] generated this result transmitted ref erence range: 0 - 10 m m/HR. The reference r torito was not used to interpret this result as normal/abnor mal. Lab Interpretation (test Abnormal code = 23736-2) [facility]2020-08-21 09:45:00 Test Item Value Reference Range Interpretation Comments POCT GLU (test code = 9415034634) 287 mg/dL 70-110 H Lab Interpretation (test code = Abnormal 50767-7) [facility] TexasGlycosylated Hemoglobin (A1C)2020-08-21 09:29:00 Test Item Value Reference Range Interpretation Comments HGB A1C (test code = 4548-4) 9.8 % 4-6 H Lab Interpretation (test code = Abnormal 82942-5) [facility]COVID-19 (ID NOW RAPID TESTING)2020-08-21 09:13:00 Test Item Value Reference Range Interpretation Comments SARS-CoV-2 Rapid ID NOW Not Detected Not Detected (test code = 52463-5) JAMES (test code = JAMES) ID NOW COVID-19 Assay is an isothermal nucleic acid amplification test intended for the qualitative detection of nucleic acid from SARS-CoV-2 viral RNA in nasopharyngeal ([employer]) specimens. It is used under Emergency [...] indicated. Lab Interpretation Normal (test code = 34153-7) [facility] TexasProthrombin Time / [id number] 08:59:00 Test Item Value Reference Range Interpretation Comments PROTIME PATIENT (test See_Comment H [Auto mated message] code = 5964-2) The system [employer] generated this result transmitted ref erence range: 10.1 - 1 2.6 Seconds. The reference range was not used to int erpret this result as normal/abnormal . INR (test code = 6301-6) Nor mal INR <1.1; Warfarin Therap eutic range 2.0 to 3. 0 or 2.5 to 3.5, dep ending upon the indica tions. Lab Interpretation (test Abnormal code = 26802-9) [facility] TexasaPTT2020-11-09 08:59:00 Test Item Value Reference Range Interpretation Comments APTT Patient (test code = See_Comment [ Automated message] 3173-2) The system [employer] generated this result transmitted ref erence range: 26 - 36 Seconds. The re ference range was not u sed to interpret this result as normal/abnor mal. Lab Interpretation (test Normal code = 68841-3) [facility] (NA, K, CL, CO2, GLUCOSE, BUN, CREATININE, CA)2020-08-21 08:52:00 Test Item Value Reference Range Interpretation Comments NA (test code = 136 mmol/L 135-145 0702494707) K (test code = 4.3 mmol/L 3.5-5 3138326702) CL (test code = 104 mmol/L 98-108 6939013276) CO2 TOTAL (test code = 24 mmol/L 23-31 2142395010) AGAP (test code = 2-16 5719766115) BUN (test code = 8 mg/dL 7-23 0018841367) GLUCOSE (test code = 308 mg/dL 70-110 H 0561977716) CREATININE (test code = 0.72 mg/dL 0.6-1.25 2126628907) CALCIUM (test code = 7.8 mg/dL 8.6-10.6 L 6513158792) eGFR Calculation mL/min/1.73m2 (Non-) (test code = 1539118092) eGFR Calculation mL/min/1.73m2 () (test code = 5765419520) JAMES (test code = JAMES) Association of [...] tests). Lab Interpretation Abnormal (test code = 60916-6) [facility] TexasHEPATIC FUNCTION PANEL (74322) (ALB,T.PRO,BILI T,BU/BC,ALT,AST,ALK PHOS)2020-08-21 08:52:00 Test Item Value Reference Range Interpretation Comments TOTAL BILI (test code = 4650490535) 0.8 mg/dL 0.1-1.1 BILI UNCON (test code = 9019922209) 0.3 mg/dL 0.1-1.1 BILI CONJ (test code = 0096971797) 0.0 mg/dL 0-0.3 T PROTEIN (test code = 8187690473) 5.7 g/dL 6.3-8.2 L ALBUMIN (test code = 0305117950) 2.7 g/dL 3.5-5 L ALK PHOS (test code = 1286486075) 245 U/L 34-122 H ALTv (test code = 1742-6) 37 U/L 5-50 AST(SGOT) (test code = 1399076224) 43 U/L 13-40 H Lab Interpretation (test code = Abnormal 88768-8) [facility]
[2022-11-30] MEDS ORDERED: DIAZEPAM 5 MG TABLET ONE (09:34)
[2022-11-30] MEDS ORDERED: KETOROLAC 30 MG/ML INJ ONE (09:34)
[2022-11-30] MEDS ORDERED: PROMETHAZINE INJ 25 MG/ML AMP ONE (09:34)
--- NOTE | 2022-11-30 10:34 | ER ---
Nurse's Notes [facility] Name: Kiel Ngo Age: 72 yrs Sex: Male : 1950 Arrival Date: 11/30/2022 Time: 09:16 Bed 14 Private MD: Diagnosis: Chronic Pain Presentation: 11/30 09:17 Chief complaint: EMS states: Chronic pain in back and bilateral legs. Coronavirus hb screen: At this time, the client does not indicate any symptoms associated with coronavirus-19. Ebola Screen: No symptoms or risks identified at this time. Initial Sepsis Screen: Does the patient meet any 2 criteria? No. Patient's initial sepsis screen is negative. Does the patient have a suspected source of infection? No. Patient's initial sepsis screen is negative. Risk Assessment: Do you want to hurt yourself or someone else? Patient reports no desire to harm self or others. Onset of symptoms was November 30, 2022. 09:17 Method Of Arrival: EMS: [facility] 09:17 Acuity: JOZEF 4 hb Triage Assessment: 09:19 General: Appears in no apparent distress. Behavior is calm, cooperative. Pain: Pain hb currently is 10 out of 10 on a pain scale. EENT: No signs and/or symptoms were reported regarding the EENT system. Neuro: Level of Consciousness is awake, alert, obeys commands, Oriented to person, place, time, situation. Cardiovascular: Patient's skin is warm and dry. Respiratory: Respiratory effort is even, unlabored, Respiratory pattern is regular, symmetrical. GI: No signs and/or symptoms were reported involving the gastrointestinal system. : No signs and/or symptoms were reported regarding the genitourinary system. Derm: Skin is pink, warm \T\ dry. Musculoskeletal: Reports pain in back and bilateral legs. Historical: - Allergies: 09:19 Demerol; hb 09:19 metformin; hb 09:19 Morphine; hb - Home Meds: :19 hydromorphone 4 mg Oral tab 1 tab three times a day [Active]; Klonopin 2 mg Oral TbDi 2 hb tabs 4 times a day [Active]; - PMHx: 09:19 Atrial fibrillation; chronic back pain; Chronic right leg pain; neuropathy; hb - PSHx: 09:19 back sx; PANCREAS SX; R. Ankle SX; hb - Immunization history:: Adult Immunizations up to date. - Social history:: Smoking status: . Screenin:20 [facility] ED Fall Risk Assessment (Adult) Score/Fall Risk Level 3 or more points = High hb Risk Oriented to surroundings, Maintained a safe environment, Educated pt \T\ family on fall prevention, incl call for assistance when getting out of bed, Used ambulatory aids as needed (educated on \T\ assisted with). Abuse screen: Denies threats or abuse. Denies injuries from another. Nutritional screening: No deficits noted. Tuberculosis screening: No symptoms or risk factors identified. Assessment: 09:20 General: See triage assessment . hb 10:25 Reassessment: Patient appears in no apparent distress at this time. Patient and/or iw family updated on plan of care and expected duration. Pain level reassessed. Patient is alert, oriented x 3, equal unlabored respirations, skin warm/dry/pink. Vital Signs: 09:17 BP 134 / 66; Pulse 112; Resp 16; Temp 98.1; Pulse Ox 100% ; Weight 90.72 kg; Height 5 hb ft. 11 in. (180.34 cm); Pain 10/10; 09:19 BP 134 / 66; Pulse 99; Resp 17; Temp 98.9; Pulse Ox 99% on R/A; rs5 10:25 BP 128 / 68; Pulse 84; Resp 15; Pulse Ox 99% on R/A; iw 09:17 Body Mass Index 27.89 (90.72 kg, 180.34 cm) hb ED Course: 09:16 Patient arrived in ED. hb 09:18 Kirby Short PA is PHCP. [facility] 09:18 Nate Sifuentes MD is Attending Physician. jm 09:19 Triage completed. hb 09:19 Arm band placed on. hb 09:20 Patient has correct armband on for positive identification. hb 09:20 No provider procedures requiring assistance completed. hb 09:27 Charisma George, DIEGO is Primary Nurse. hb Administered Medications: 09:35 Drug: Valium (diazepam) 10 mg Route: PO; hb 10:34 Follow up: Response: No adverse reaction hb 09:35 Drug: Ketorolac 30 mg Route: IM; Site: right deltoid; hb 10:34 Follow up: Response: No adverse reaction hb 09:35 Drug: Promethazine 25 mg Route: IM; Site: right deltoid; hb 10:34 Follow up: Response: No adverse reaction hb Medication: 09:20 VIS not applicable for this client. hb Outcome: 10:33 Discharge ordered by MD. nye 11:53 Patient left the ED. eb Signatures: Kirby Short PA PA jmm Williams, Irene, RN RN Charisma George RN RN Shannan Moraes Krzysztof Keyes rs5
--- NOTE | 2022-11-30 10:34 | EDPHYS ---
Physician Documentation [facility] Name: Kiel Ngo Age: 72 yrs Sex: Male : 1950 Arrival Date: 11/30/2022 Time: 09:16 Bed 14 Private MD: ED Physician Nate Sifuentes HPI: 11/30 09:23 This 72 yrs old Male presents to ER via EMS with complaints of Back Pain. jmm 09:23 The patient presents with pain that is chronic. The symptoms are located in the low jmm back. Onset: The symptoms/episode began/occurred at an unknown time. The pain does not radiate. Associated signs and symptoms: Pertinent negatives: abdominal pain, dysuria, fever. This is a 72 year old male with a history of atrial fibrillation, chronic back pain, that presents to [facility] ED with complaints of ongoing chronic back and hip pain. Pain is similar character to his chronic pain. Denies fever, denies injury. . Historical: - Allergies: 09:19 Demerol; hb 09:19 metformin; hb 09:19 Morphine; hb - Home Meds: 09:19 hydromorphone 4 mg Oral tab 1 tab three times a day [Active]; Klonopin 2 mg Oral TbDi 2 hb tabs 4 times a day [Active]; - PMHx: 09:19 Atrial fibrillation; chronic back pain; Chronic right leg pain; neuropathy; hb - PSHx: 09:19 back sx; PANCREAS SX; R. Ankle SX; hb - Immunization history:: Adult Immunizations up to date. - Social history:: Smoking status: . ROS: 09:23 Constitutional: Negative for fever, chills, and weight loss, Cardiovascular: Negative jmm for chest pain, palpitations, and edema, Respiratory: Negative for shortness of breath, cough, wheezing, and pleuritic chest pain. 09:23 Back: Positive for pain at rest, pain with movement. 09:23 All other systems are negative. Exam: 09:23 Constitutional: This is a well developed, well nourished patient who is awake, alert, jmm and in no acute distress. Head/Face: atraumatic. Eyes: EOMI, no conjunctival erythema appreciated ENT: Moist Mucus Membranes Neck: Trachea midline, Supple Chest/axilla: Normal chest wall appearance and motion. Cardiovascular: Regular rate and rhythm. No edema appreciated Respiratory: Normal respirations, no respiratory distress appreciated Abdomen/GI: Non distended 09:23 Back: pain, that is mild, of the lumbar area. 09:23 Musculoskeletal/extremity: no edema. 09:23 Skin: Appearance: Color: normal in color. 09:23 Neuro: Orientation: is normal, Mentation: is normal, Memory: is normal. 09:23 Psych: Behavior/mood is pleasant, cooperative. Vital Signs: 09:17 BP 134 / 66; Pulse 112; Resp 16; Temp 98.1; Pulse Ox 100% ; Weight 90.72 kg; Height 5 hb ft. 11 in. (180.34 cm); Pain 10/10; 09:19 BP 134 / 66; Pulse 99; Resp 17; Temp 98.9; Pulse Ox 99% on R/A; rs5 10:25 BP 128 / 68; Pulse 84; Resp 15; Pulse Ox 99% on R/A; iw 09:17 Body Mass Index 27.89 (90.72 kg, 180.34 cm) hb MDM: 09:23 Patient medically screened. [facility] 10:32 Data reviewed: vital signs, nurses notes. I considered the following discharge jmm prescriptions or medication management in the emergency department No opioids given. Counseling: I had a detailed discussion with the patient and/or guardian regarding: the historical points, exam findings, and any diagnostic results supporting the discharge/admit diagnosis, the need for outpatient follow up, to return to the emergency department if symptoms worsen or persist or if there are any questions or concerns that arise at home. Administered Medications: 09:35 Drug: Valium (diazepam) 10 mg Route: PO; hb 10:34 Follow up: Response: No adverse reaction hb 09:35 Drug: Ketorolac 30 mg Route: IM; Site: right deltoid; hb 10:34 Follow up: Response: No adverse reaction hb 09:35 Drug: Promethazine 25 mg Route: IM; Site: right deltoid; hb 10:34 Follow up: Response: No adverse reaction hb Disposition: 14:36 Co-signature as Attending Physician, Nate Sifuentes MD I reviewed the patient's care rt provided by the Advanced Practice Provider and agree with the diagnosis and treatment plan. Disposition Summary: 11/30/22 10:33 Discharge Ordered Location: Home jmm Condition: Stable jmm Diagnosis - Chronic Pain jmm Followup: jmm - With: Private Physician - When: 2 - 3 days - Reason: Recheck today's complaints, Continuance of care, Re-evaluation by your physician Discharge Instructions: - Discharge Summary Sheet jmm - Chronic Pain, Adult jmm Forms: - Medication Reconciliation Form jmm - Thank You Letter jmm - Antibiotic Education jmm - Prescription Opioid Use jmm Signatures: Kirby Short PA PA jmm Baxter, Heather, DIEGO RN Nate Sifuentes MD MD rt
[2022-11-30 12:05] VITALS: TEMP 98.9; O2SAT 99
[2022-11-30 12:06] VITALS: BP 128/68
== END 2022-11-30 11:53 | disposition home or self-care (01) ==
LOC: ER 09:14
DX: G89.29 Other chronic pain (principal); Z88.5 Allergy status to narcotic agent; Z88.8 Allergy status to other drugs, medicaments and biological substances
CPT/HCPCS: 96372; 99283; J2550

== ENCOUNTER 2022-12-02 09:37 | Emergency (ER) | payer OTHER ==
--- OUTSIDE RECORDS SUMMARY | 2022-12-02 09:47 | XMS REPORT | Continuity of Care Document ---
:1950 Author Organization [facility] t Address [address] [place] [address] Care Team Providers Name Role Phone CALVIN WORLEY Primary Care Physician Unavailable [id number] Attending Clinician Unavailable KELLY WASHINGTON Attending Clinician Unavailable Zion Mathew Anavella Attending Clinician Unava ilable SWEETIE STOUT Attending Clinician Unavailable Sweetie Stotu MD Attending Clinician ADRIANA HAINES Attending Clinician Unavailable Calvin Worley MD Attending Clinician Ruchi Peters RN Attending Clinician Paco Lacey DO Attending Clinician Hunter VILLAREAL, Vika Fernando Attending Clinician Alvarez Rowe MD Attending Clinician ALVAREZ ROWE Attending Clinician Unavailable PACO LACEY Attending Clinician Unavailable Doctor Unassigned, [place] Attending Clinician Unavailable Wilder VILLAREAL, Anig K.H. Attending Clinician Jl Mccabe MD Attending Clinician Kelly Washington MD Attending Clinician [phone] Mukul Gallardo MD Attending Clinician [id number] Admitting Clinician Unavailable MUKUL GALLARDO Admitting Clinician Unavailable Angle Mathew, Anav Admitting Clinician Unavailable Hunter VILLAREAL, Vika G Admitting Clinician VIKA HARRISON Admitting Clinician Unavailable Mukul Gallardo MD Admitting Clinician Payers Payer Name Policy Type Policy Number Effective Date Expiration Date [place] MEDICARE PART A [id number] 2007 \\T\\ B 00:00:00 [employer] INDEMNITY [id number] 2016 00:00:00 MCR MCR [id number] MEDICARE PART A [id number] 2014 \\T\\ B - MEDICARE 00:00:00 INDEMNITY/TRADITIO [id number] NAL CHOICE - [employer] 00:00:00 Problems Condition Condition Condition Status Onset Resolution Last Treating Co mments Source Name Details Category Date Date Treatment Clinician Date Elevated Elevated Disease Active 2020-0 Unive rs LFTs LFTs 2-05 ity of 00:00: [place] 00 Medical Branch Abnormal Abnormal Disease Active 2020-0 Unive rs CXR CXR 2-05 ity of 00:00: Medical Branch Elevated Elevated Disease Active 2020-0 Unive rs LFTs LFTs 2-05 ity of 00:00: 00 Medical Branch Cellulitis Cellulitis Disease Active 2020-0 U nivers 2-04 ity of 00:00: [place] 00 Medical Branch Rash Rash Disease Active 2019- Univers 1-09 ity of 00:00: 00 Medical Branch Allergies, Adverse Reactions, Alerts Allergy Allergy Status Severity Reaction(s) Onset Inactive Treating Comm ents Source Name Type Date Date Clinician [place] Propensi Active Rash 2019- Univers ty to 1-10 ity of adverse 00:00: [place] reaction 00 Medical s Branch PEACH DRUG Active Rash 2019- Univers INGREDI 1-10 ity of 00:00: 00 Medical Branch Lidocain Drug Active Itching 2019-10 Univers e Allergy -09 ity of 00:00: [place] 00 Medical Branch LIDOCAIN DRUG Active ITCHING [...] Quantity Comments Source Exposure to Not sure [place] of SARS-CoV-2 [place] Medical (event) Branch History of Chews Tobacco University of tobacco use [place] Medical Branch History SDOH 2020-11-17 2020-11-17 5 University o f Financial 00:00:00 00:00:00 [place] Medical Branch History SDOH Food 2020-11-17 2020-11-17 1 Univers ity of Worry 00:00:00 00:00:00 [place] Medical Branch History SDOH Food 2020-11-17 2020-11-17 1 Univers ity of Scarcity 00:00:00 00:00:00 [place] Medical Branch History SDOH 2020-11-17 2020-11-17 1 University o f Transport Med 00:00:00 00:00:00 [place] Medic al Branch History SDOH 2020-11-17 2020-11-17 1 University o f Transport Non-Med 00:00:00 00:00:00 [place] M edical Branch Education 2020-11-16 2020-11-16 21 [place] of 00:00:00 00:00:00 [facility] Branch Alcohol intake 2020-11-16 2020-11-16 Ex-drinker [place] of 00:00:00 00:00:00 (finding) [facility] Tobacco use and 2020-08-21 2020-08-21 Former user Universi ty of exposure 00:00:00 00:00:00 [facility] Tobacco Comment 2020-08-21 2020-08-21 quit 10 years Univer sity of 00:00:00 00:00:00 ago, started in [place] Med ica 2nd year of [facility] (~40 years) Alcohol Comment 2020-08-21 2020-08-21 Used to have 2-3 Uni versity of 00:00:00 00:00:00 six-packs of [place] Medica l beer daily x 20 Branch years, quit 2005 History [facility] 2020-08-21 2020-08-21 99 University o f Alcohol Frequency 00:00:00 00:00:00 [place] M edical Branch History [facility] 2020-08-21 2020-08-21 99 University o f Alcohol Std 00:00:00 00:00:00 [place] Medical Drinks Branch History [facility] 2020-08-21 2020-08-21 99 University o f Alcohol Binge 00:00:00 00:00:00 [facility] Sex [birth year] At [birth year] Universit y of 00:00:00 00:00:00 [facility] Smoking Status Start Date Stop Date Source Never smoker [facility] Medications Ordered Filled Start [...] by ity of tablet 22:47: mouth at [place] 18 bedtime. Medical Branch HYDROmorpho 2020-0 Yes [...] by ity of tablet 22:47: mouth at [place] 18 bedtime. Medical Branch HYDROmorpho 2020-0 Yes [...] by ity of tablet 16:47: mouth at [place] 18 bedtime. Medical Branch HYDROmorpho 2020-0 Yes [...] Until Discontinu ed, Routine amLODIPine 0 Yes [id number] 10mg Take 1 Univers 10 mg 3-07 tablet by ity of tablet 00:00: mouth [place] 00 daily. Medical Branch clotrimazol 2020-0 Yes [id number] Apply to Univers e 1 % 3-07 face/ears, ity of topical 00:00: armpits, [place] cream 00 pannus and Medical back/any Branch other rash twice a day fluocinonid 2020-0 Yes [id number] Apply to Univers e 0.05 % 3-07 scalp ity of solution 00:00: twice a [place] 00 day Medical Branch triamcinolo 2020-0 Yes [id number] Apply to Univers ne 3-07 back, ity of acetonide 00:00: armpits [place] 0.1 % cream 00 and other Med ical affected Branch areas twice daily, please mix with clotrimazo le hydrOXYzine 2020-0 Yes [id number] 10mg Take 1 Univers 10 mg 3-07 tablet by ity of tablet 00:00: mouth 2 00 (two) Medical times Branch daily. amLODIPine 2020-0 Yes [id number] 10mg Take 1 Univers 10 mg 3-07 tablet by ity of tablet 00:00: mouth [place] 00 daily. Medical Branch clotrimazol 2020-0 Yes [id number] Apply to Univers e 1 % 3-07 face/ears, ity of topical 00:00: armpits, [place] cream 00 pannus and Medical back/any Branch other rash twice a day fluocinonid 2020-0 Yes [id number] Apply to Univers e 0.05 % 3-07 scalp ity of solution 00:00: twice a [place] 00 day Medical Branch triamcinolo 2020-0 Yes [id number] Apply to Univers ne 3-07 back, ity of acetonide 00:00: armpits [place] 0.1 % cream 00 and other Med ical affected Branch areas twice daily, please mix with clotrimazo le hydrOXYzine 2020-0 Yes [id number] 10mg Take 1 Univers 10 mg 3-07 tablet by ity of tablet 00:00: mouth 2 [place] 00 (two) Medical times Branch daily. amLODIPine 2020-0 Yes [id number] 10mg Take 1 Univers 10 mg 3-07 tablet by ity of tablet 00:00: mouth [place] 00 daily. Medical Branch clotrimazol 2020-0 Yes [id number] Apply to Univers e 1 % 3-07 face/ears, ity of topical 00:00: armpits, [place] cream 00 pannus and Medical back/any Branch other rash twice a day fluocinonid 2020-0 Yes [id number] Apply to Univers e 0.05 % 3-07 scalp ity of solution 00:00: twice a day Medical Branch triamcinolo 0 Yes [id number] Apply to Univers ne 3-07 back, ity of acetonide 00:00: armpits [place] 0.1 % cream 00 and other Med ical affected Branch areas twice daily, please mix with clotrimazo le hydrOXYzine Yes [id number] 10mg Take 1 Univers 10 mg 3- tablet by ity of tablet 00:00: mouth 2 (two) Medical times Branch daily. amLODIPine Yes [id number] 10mg Take 1 Univers 10 mg 3-07 tablet by ity of tablet 00:00: mouth 00 daily. Medical Branch clotrimazol 0 Yes [id number] Apply to Univers e 1 % 3-07 face/ears, ity of topical 00:00: armpits, [place] cream 00 pannus and Medical back/any Branch other rash twice a day fluocinonid 2020-0 Yes [id number] Apply to Univers e 0.05 % 3-07 scalp ity of solution 00:00: twice a day Medical Branch triamcinolo 0 Yes [id number] Apply to Univers ne 3-07 back, ity of acetonide 00:00: armpits [place] 0.1 % cream 00 and other Med ical affected Branch areas twice daily, please mix with clotrimazo le hydrOXYzine Yes [id number] 10mg Take 1 Univers 10 mg 3-07 tablet by ity of tablet 00:00: mouth 2 00 (two) Medical times Branch daily. cephALEXin 2020-2020- No [id number] 500mg Take 1 Univers 500 mg 12-17- capsule by ity of capsule 00:00: 05:59 mouth [place] 00 :00 every 6 Medical (six) Branch hours for 3 days. cephALEXin 2020-2020- No [id number] 500mg Take 1 Univers 500 mg 12-17 capsule by ity of capsule 00:00: 05:59 mouth [place] 00 :00 every 6 Medical (six) Branch hours for 3 days. hydrOXYzine 2020- No [id number] 10mg Take 1 Univers 10 mg 12-17 [...] 1,000 mL 00 :00 IV Medical Infusion, [facility] ONCE, 1 dose, 12/15/20 at 1900, Routine [...] NaCl 0.9% No 500mL at 999 [facility] ers (NS) bolus 12-15-05 mL/hr, 500 it [...] Until Discontinu ed, Routine amLODIPine 2020- No [id number] 10mg Take 1 Univers 10 mg 12-15-07 tablet by ity of tablet 00:00: 00:00 mouth [place] 00 :00 daily. Medical Branch HYDROmorpho 2020- No 1mg 1 mg, Univ ers ne 3 03-05 Oral, ity of (DILAUDID) 17:35: 15:18 Q6HPRN, [place] tablet 1 mg 30 :06 Starting Medi [facility] 12/14/20 Branch at 1135, Until Fri12/15/20 at 0918, Routine, Pain (scale 7-10) hydrOXYzine Yes 10mg 10 mg, Univ ers (ATARAX) 304 Oral, BID, ity o f tablet 10 17:30: First dose [place] mg 00 on [facility] Medical 12/14/20 at Branch 1130, Until Discontinu ed, Routine lisinopriL Yes 5mg 5 mg, Univer s (PRINIVIL,Z 12-14 Oral, ity of ESTRIL) 17:30: DAILY, [place] tablet 5 mg 00 First dose Me dical on [place] Branch 12/14/20 at 1130, Until Discontinu ed, Routine triamcinolo 2020- No [id number] Apply to Univers ne 12-14 back, ity of acetonide 00:00: 00:00 armpits [place] 0.1 % cream 00 :00 and other Med ical affected Branch areas twice daily, please mix with clotrimazo le clotrimazol 2020- No [id number] Apply to Univers e 1 % 12-14 face/ears, ity of topical 00:00: 00:00 armpits, [place] cream 00 :00 pannus and Medical back/any Branch other rash twice a day fluocinonid 2020- No [id number] Apply to Univers e 0.05 % 12-14 scalp ity of solution 00:00: 00:00 twice a [place] 00 :00 day Medical Branch hydrOXYzine 2020- No [id number] 10mg Take 1 Univers 10 mg 12-14 [...] [place] 12/12/20 at Branch 0215, Routine mirtazapine 0 [...] [place] capsule 300 00 on [facility] Medica l mg 12/11/20 at Branch 2100, Until Discontinu ed, Routine fluocinonid 0 Yes Topical, Un toi e (LIDEX) 3 BID, First ity of 0.05 % 02:00: dose on [place] solution 00 Fri12/11/20 Medic al at 2000, Branch Until Discontinu ed, Routine acetaminoph 2020- No 1{tbl} 1 tablet, Univers en-codeine 12-11 03-05 Oral, ity of (TYLENOL 23:23: 13:49 Q6HPRN, [place] #3) 300-30 43 :08 Starting Medic al mg tablet 1 Fri12/11/20 Br anch tablet at 1723, Until Fri12/15/20 at 0749, Routine, Pain (scale 4-6) enoxaparin 0 Yes 40mg 40 mg, Unive rs (LOVENOX) 12-11 Subcutaneo ity of injection 23:00: us, DAILY, [place] 40 mg 00 First dose Medical on Fri [facility] 12/11/20 at 1700, Until Discontinu ed, Routine clotrimazol 0 Yes Topical, Un toi e 3- BID, First ity of (LOTRIMIN) 19:15: dose [place] 1 % topical Fri12/11/20 Me dical cream at 1315, Branch Until Discontinu ed, Routine hydrocortis 0 Yes Topical Uni vers one 2.5 % 12-11 (Apply To ity o f cream 19:15: Affected [place] 00 Areas), Medical BID, First Branch dose on Fri12/11/20 at 1315, Until Discontinu ed, Routine triamcinolo Yes Topical, Un toi ne 12-11 BID, First ity of acetonide 19:00: dose [place] (TRIDERM) 00 (after Medical 0.1 % cream last Branch modificati on) on Fri12/11/20 at 1300, Until Discontinu ed, Routine ceFAZolin 2020- No 1000mg 1,000 mg, [place] [facility] (ANCEF) 12-11 03-05 IV ity of 1,000 mg in 19:00: 17:35 Piggyback, [place] NaCl 0.9% 00 :26 Q8H ABX, Medica l (NS) 50 mL First dose Bra nch MINI-BAG on Fri12/11/20 at 1300, Until Discontinu ed, 50 mL
R jose armando for Anti-Infec tive: Documented Infection< br>Documen ronan Infection Site: Skin / Soft Tissue
Duration of Therapy: 7 days Sliding Yes Subcutaneo [facility] ers Scale 12-11 us, TID ity of Insulin - 18:00: MEALS+HS, [place] Lispro 00 First dose Medical (HumaLOG) + on Fri Branch Fsbg 12/11/20 at Testing 1200, Until Discontinu ed, Routine insulin Yes 5U 5 Units, [facility] [place] s lispro 12-11 Subcutaneo ity of (human) 18:00: us, TID [place] (HumaLOG 00 MEALS, Medical U-100) First dose Branch injection 5 on Fri Units 12/11/20 at 1200, Until Discontinu ed Polyethylen Yes 17g 17 g, [facility] rs e Glycol 12-11 Oral, ity of 3350 17:47: [id number], [place] (MIRALAX) 05 Starting Medica l powder 17 g Fri12/11/20 Br anch at 1147, Until Discontinu ed, Routine, Constipati on acetaminoph Yes 650mg 650 mg, Un toi en 12-11 Oral, ity of (TYLENOL) 16:51: Q6HPRN, [place] tablet 650 28 Starting Medic al mg 12/11/20 Branch at 1051, Until Discontinu ed, Routine, Pain (scale 1-3) FENTanyl PF 2020- No 75ug 75 mcg, Un toi (SUBLIMAZE 12-11 Slow IV ity o f (PF)) 15:00: 13:53 Push, [place] injection 00 :00 ONCE, 1 Medical 75 mcg dose, [facility] Branch 12/11/20 at 0900, Routine vancomycin 2020- [...] piperacilli 2020- No 3.375g 3.375 g, [place] [facility] n-tazobacta 12-11 IV ity of m (ZOSYN) 12:00: 17:48 Piggyback, [place] injection 00 :24 Q6H, First Medi jose c 3.375 g dose on Branch [facility] 12/11/20 at 0600, Until Discontinu ed, KAHLIL
Re ason for Anti-Infec tive: Empiric Therapy for Suspected Infection< br>Empiric Therapy Site: Skin / Soft tissue
Duration of therapy: 72 hours sennosides- Yes [id number] 1{tbl} Take 1 Univers docusate 2-09 tablet by ity of sodium 00:00: mouth 2 [place] 8.6-50 mg 00 (two) Medical per tablet times Branch daily. hydrocortis Yes [id number] Apply to [place] [facility] one 2.5 % 2-09 affected ity of cream 00:00: area(s) 2 [place] 00 (two) Medical times Branch daily. blood sugar 2020-0 Yes [id number] Use to [place] [facility] diagnostic 11-21 check ity of (FREESTYLE 00:00: blood [place] LITE 00 glucose Medical STRIPS) 4-5 times Branch strip daily. Polyethylen 2020-0 Yes [id number] 17g Take 1 Univers e Glycol 2-09 Packet by ity of 3350 17 00:00: mouth [place] gram powder 00 every 24 Medi jose c (twenty-fo Branch ur) hours as needed for Constipati on. sennosides- 2020- Yes [id number] 1{tbl} Take 1 Univers docusate 2-09 tablet by ity of sodium 00:00: mouth 2 [place] 8.6-50 mg 00 (two) Medical per tablet times Branch daily. hydrocortis 2020-0 Yes [id number] Apply to Univers one 2.5 % 2-09 affected ity of cream 00:00: area(s) 2 [place] 00 (two) Medical times Branch daily. blood sugar 2020-0 Yes [id number] Use to [place] [facility] diagnostic 11-21 check ity of (FREESTYLE 00:00: blood [place] LITE 00 glucose Medical STRIPS) 4-5 times Branch strip daily. Polyethylen 2020-0 Yes [id number] 17g Take 1 Univers e Glycol 2-09 Packet by ity of 3350 17 00:00: mouth [place] gram powder 00 every 24 Medi jose c (twenty-fo Branch ur) hours as needed for Constipati on. sennosides- 2020-0 Yes [id number] 1{tbl} Take 1 Univers docusate 2-09 tablet by ity of sodium 00:00: mouth 2 [place] 8.6-50 mg 00 (two) Medical per tablet times Branch daily. hydrocortis 2020-0 Yes [id number] Apply to Univers one 2.5 % 2-09 affected ity of cream 00:00: area(s) 2 [place] 00 (two) Medical times Branch daily. blood sugar 2020-0 Yes [id number] Use to [place] [facility] diagnostic 11-21 check ity of (FREESTYLE 00:00: blood [place] LITE 00 glucose Medical STRIPS) 4-5 times Branch strip daily. Polyethylen 2020-0 Yes [id number] 17g Take 1 Univers e Glycol 2-09 Packet by ity of 3350 17 00:00: mouth [place] gram powder 00 every 24 Medi jose c (twenty-fo Branch ur) hours as needed for Constipati on. sennosides- Yes [id number] 1{tbl} Take 1 Univers docusate 11-21 tablet by ity of sodium 00:00: mouth 2 [place] 8.6-50 mg 00 (two) Medical per tablet times Branch daily. hydrocortis Yes [id number] Apply to [place] [facility] one 2.5 % 11-21 affected ity of cream 00:00: area(s) 2 [place] 00 (two) Medical times Branch daily. blood sugar Yes [id number] Use to [place] [facility] diagnostic 11-21 check ity of (FREESTYLE 00:00: blood [place] LITE 00 glucose Medical STRIPS) 4-5 times Branch strip daily. Polyethylen Yes [id number] 17g Take 1 Univers e Glycol - Packet by ity of 3350 17 00:00: mouth [place] gram powder 00 every 24 Medi jose c (twenty-fo Branch ur) hours as needed for Constipati on. Insulin 2020- No [id number] 15U inject 15 Univers Glargine 11-21-12 Units ity of (LANTUS 00:00: 05:59 under the [employer] [place] 00 :00 skin every Medic al U-100 morning Branch INSULIN) for 30 100 unit/mL days. (3 mL) injection venlafaxine 2020- No [id number] 150mg Take 1 Univers XR 150 mg 11-21 capsule by ity of 24 hr 00:00: 05:59 mouth 3 [place] capsule 00 :00 (three) Medical times Branch daily for 30 days. Insulin 2020- No [id number] 15U inject 15 Univers Glargine 11-21-12 Units ity of (LANTUS 00:00: 05:59 under the [employer] SOLOSTAR 00 :00 skin every Medic al U-100 morning Branch INSULIN) for 30 100 unit/mL days. (3 mL) injection venlafaxine 2020- No [id number] 150mg Take 1 Univers XR 150 mg 11-21 capsule by ity of 24 hr 00:00: 05:59 mouth 3 [place] capsule 00 :00 (three) Medical times Branch daily for 30 days. triamcinolo 2020- No [id number] Apply to [place] [facility] ne 11-21 area(s) 2 ity of acetonide 00:00: 00:00 (two) [place] 0.1 % cream 00 :00 times Medical daily. Branch cephALEXin 2020- No [id number] 1000mg Take 2 Univers 500 mg 11-21 capsules ity of capsule 00:00: 00:00 by mouth 3 [place] 00 :00 (three) Medical times Branch daily. doxycycline 2020- No [id number] 100mg Take 1 Univers hyclate 100 11-21 capsule by i ty of mg capsule 00:00: 00:00 mouth [place] 00 :00 every 12 Medical (twelve) Branch hours. lactobacill 2020- No [id number] 1{tbl} Take 1 Univers us 11-21 tablet by ity of acidophilus 00:00: 00:00 mouth 2 [place] 25 million 00 :00 (two) Medical cell -100 times Branch mg captab daily. bisacodyL 2020- No [id number] 10mg Insert 1 Univers 10 mg 11-21 Suppositor ity of suppository 00:00: 00:00 y into [place] 00 :00 rectum at Medical bedtime as Branch needed for Constipati on. ALPRAZolam 2020- No [id number] .25mg Take 1 Univers (XANAX) 11-21 tablet by ity of 0.25 mg 00:00: 00:00 mouth 2 [place] tablet 00 :00 (two) Medical times Branch daily. hydrOXYzine 2020- No [id number] 20mg Take 2 Univers 10 mg 11-21 [...] Units ity of (LANTUS 01:13: under the [place] SOLOSTAR) 36 skin. Medical 100 unit/mL Branch [...] Units ity of (LANTUS 01:13: under the [place] SOLOSTAR) 36 skin. Medical 100 unit/mL Branch [...] Units ity of (LANTUS 01:13: under the [place] SOLOSTAR) 36 skin. Medical 100 unit/mL Branch [...] Units ity of (LANTUS 01:13: under the [place] SOLOSTAR) 36 skin. Medical 100 unit/mL Branch (3 mL) InPn INSULIN 2019-10 Yes 5U inject 5 Univer s ASPART 1-12 Units ity of (NOVOLOG 01:13: under the [facility] s FLEXPEN SC) 36 skin. Medical Branch [...] Units ity of (LANTUS 01:13: under the [place] SOLOSTAR) 36 skin. Medical 100 unit/mL Branch [...] Units ity of (LANTUS 01:13: under the [place] SOLOSTAR) 36 skin. Medical 100 unit/mL Branch [...] Units ity of (LANTUS 01:13: under the [place] SOLOSTAR) 36 skin. Medical 100 unit/mL Branch (3 mL) InPn INSULIN 2019-10 Yes 5U inject 5 Univer s ASPART 1-12 Units ity of (NOVOLOG 01:13: under the [facility] [place] FLEXPEN [place]) 36 skin. Medical Branch ALPRAZolam 2019-10 Yes .25mg Take 0.25 U nivers (XANAX) 1-12 mg by ity of 0.25 mg 01:13: mouth 2 [place] tablet 36 (two) Medical times Branch daily. HYDROXYZINE 2019-10 2020- No 25mg Take 25 mg Univers PAMOATE 1-11 11-11 by mouth ity of ORAL 20:04: 00:00 daily. [place] 34 :00 Medical Branch hydrocortis 2019-10 Yes [id number] Apply to Univers one 2.5 % 1-11 affected ity of cream 00:00: area(s) 2 [place] 00 (two) Medical times Branch daily. hydrOXYzine 2019-10 Yes [id number] 20mg Take 2 Univers 10 mg 1-11 tablets by ity of tablet 00:00: mouth [place] 00 every 8 Medical (eight) Branch hours as needed for Itching or Anxiety. Polyethylen 2019-10 Yes [id number] 17g Take 1 Univers e Glycol 1-11 Packet by ity of 3350 17 00:00: mouth [place] gram powder 00 every 24 Medi jose c (twenty-fo Branch ur) hours as needed for Constipati on. hydrocortis 2019- Yes [id number] Apply to Univers one 2.5 % 1-11 affected ity of cream 00:00: area(s) 2 [place] 00 (two) Medical times Branch daily. hydrOXYzine 2019- Yes [id number] 20mg Take 2 Univers 10 mg 1-11 tablets by ity of tablet 00:00: mouth [place] 00 every 8 Medical (eight) Branch hours as needed for Itching or Anxiety. Polyethylen 2020- Yes [id number] 17g Take 1 Univers e Glycol 1-11 Packet by ity of 3350 17 00:00: mouth [place] gram powder 00 every 24 Medi jose c (twenty-fo Branch ur) hours as needed for Constipati on. hydrocortis 2019- Yes [id number] Apply to Univers one 2.5 % 1-11 affected ity of cream 00:00: area(s) 2 [place] 00 (two) Medical times Branch daily. hydrOXYzine 2019- Yes [id number] 20mg Take 2 Univers 10 mg 1-11 tablets by ity of tablet 00:00: mouth [place] 00 every 8 Medical (eight) Branch hours as needed for Itching or Anxiety. Polyethylen 2019- Yes [id number] 17g Take 1 Univers e Glycol 1-11 Packet by ity of 3350 17 00:00: mouth [place] gram powder 00 every 24 Medi jose c (twenty-fo Branch ur) hours as needed for Constipati on. hydrocortis 2019- Yes [id number] Apply to Univers one 2.5 % 1-11 affected ity of cream 00:00: area(s) 2 [place] 00 (two) Medical times Branch daily. hydrOXYzine 2019- Yes [id number] 20mg Take 2 Univers 10 mg 1-11 tablets by ity of tablet 00:00: mouth [place] 00 every 8 Medical (eight) Branch hours as needed for Itching or Anxiety. Polyethylen 2019- Yes [id number] 17g Take 1 Univers e Glycol 1-11 Packet by ity of 3350 17 00:00: mouth [place] gram powder 00 every 24 Medi jose c (twenty-fo Branch ur) hours as needed for Constipati on. hydrocortis 2019- Yes [id number] Apply to Univers one 2.5 % 1-11 affected ity of cream 00:00: area(s) 2 [place] 00 (two) Medical times Branch daily. hydrOXYzine 2019- Yes [id number] 20mg Take 2 Univers 10 mg 1-11 tablets by ity of tablet 00:00: mouth [place] 00 every 8 Medical (eight) Branch hours as needed for Itching or Anxiety. Polyethylen 2020- Yes [id number] 17g Take 1 Univers e Glycol 1-11 Packet by ity of 3350 17 00:00: mouth [place] gram powder 00 every 24 Medi jose c (twenty-fo Branch ur) hours as needed for Constipati on. hydrocortis 2019- Yes [id number] Apply to Univers one 2.5 % 1-11 affected ity of cream 00:00: area(s) 2 [place] 00 (two) Medical times Branch daily. hydrOXYzine 2019- Yes [id number] 20mg Take 2 Univers 10 mg 1-11 tablets by ity of tablet 00:00: mouth [place] 00 every 8 Medical (eight) Branch hours as needed for Itching or Anxiety. Polyethylen 2019- Yes [id number] 17g Take 1 Univers e Glycol 1-11 Packet by ity of 3350 17 00:00: mouth [place] gram powder 00 every 24 Medi jose c (twenty-fo Branch ur) hours as needed for Constipati on. hydrocortis 2019-10 Yes [id number] Apply to Univers one 2.5 % 1-11 affected ity of cream 00:00: area(s) 2 [place] 00 (two) Medical times Branch daily. hydrOXYzine 2019-10 Yes [id number] 20mg Take 2 Univers 10 mg 1-11 tablets by ity of tablet 00:00: mouth [place] 00 every 8 Medical (eight) Branch hours as needed for Itching or Anxiety. Polyethylen 2019- Yes [id number] 17g Take 1 Univers e Glycol 1-11 Packet by ity of 3350 17 00:00: mouth [place] gram powder 00 every 24 Medi jose c (twenty-fo Branch ur) hours as needed for Constipati on. triamcinolo 2019- 2020- No [id number] Apply to [facility] 10-23 area(s) 2 ity of acetonide 00:00: 05:59 (two) [place] 0.1 % cream 00 :00 times Medical daily for Branch 14 days. triamcinolo 2020- 2020- No [id number] Apply to [facility] 10-23 area(s) 2 ity of acetonide 00:00: 05:59 (two) [place] 0.1 % cream 00 :00 times Medical daily for Branch 14 days. triamcinolo 2020- 2020- No [id number] Apply to [facility] 1-11 11-26 area(s) 2 ity of acetonide [...] tablet 1 mg 53 Starting [facility] 08/22/20 at 0907, Until Discontinu ed, Routine, Pain (scale 7-10) hydrocortis 2019-10 Yes Topical Uni vers one 2.5 % -10 (Apply To ity o f cream 02:00: Affected [place] 00 Areas), Medical BID, First Branch dose on [facility] 08/21/20 at 2000, Until Discontinu ed, Routine triamcinolo 2019-10 Yes Topical, Un toi ne 1-10 BID, First ity of acetonide 02:00: dose on [place] (TRIDERM) 00 Fri Medical 0.1 % cream 08/21/20 at Br anch 2000, Until Discontinu ed, Routine hydrOXYzine 2019-10 Yes 20mg 20 mg, Univ ers (ATARAX) 09 Oral, ity of tablet 20 17:39: Q8HPRN, [place] mg 12 Starting Medical [facility] 08/21/20 at 1139, Until Discontinu ed, Routine, Itching, Anxiety sennosides- 2019-10 Yes 1{tbl} 1 tablet, Univers docusate 09 Oral, ity of sodium 15:00: DAILY, [place] (SENOKOT-S) 00 First dose Me dical 8.6-50 mg on [facility] Branch per tablet 08/21/20 at 1 tablet 0900, Until Discontinu ed, Routine hydrocortis 2019-10 2020- No Topical Un toi one 1 % 10-21 11- (Apply To ity of cream 15:00: 22:54 Affected [place] 00 :48 Areas), Medical DAILY, Branch First dose on [facility] 08/21/20 at 0900, Until Discontinu ed, Routine venlafaxine 2019-10 Yes 150mg 150 mg, Un toi XR (EFFEXOR 10-21 Oral, TID, it y of XR) 24 hr 14:00: [place] capsule 150 00 on [facility] Medica l mg 08/21/20 at Branch 0800, Until Discontinu ed, Routine heparin 2019-10 Yes 5000U 5,000 Univers (porcine) 10-21 Units, ity of injection 14:00: [place]cutaneo [place] 5,000 Units 00 us, Q12H, Med ical First dose Branch on [facility] 08/21/20 at 0800, Until Discontinu ed, Routine diphenhydrA 2019-10 2020- No 25mg 25 mg, Uni vers MINE 10-21 Oral, ity of (BENADRYL) 12:56: 17:39 Q8HPRN, Jeff as tablet 25 59 :43 Starting Medica l mg [facility] 08/21/20 at 0656, Until [facility] 08/21/20 at 1139, Routine, Itching, Mild Rash, Congestion /Allergies , alternate with hydroxyzin e hydrOXYzine 2019-10 2020- No 10mg 10 mg, Uni vers (ATARAX) 10-21 Oral, ity of tablet 10 10:20: 12:57 Q6HPRN, [place] mg 22 :12 Starting Medical [facility] 08/21/20 at 0420, Until [facility] 08/21/20 at 0657, Routine, Itching, Anxiety Sliding 2019-10 Yes Subcutaneo Univ ers Scale 10-21 us, Q4H, ity of Insulin - 10:00: First [place] Aspart 00 (after Medical (NOVOLOG) + last Branch Fsbg modificati Testing on) on [facility] 08/21/20 at 0400, Until Discontinu ed, Routine lidocaine 5 2019-10 2020- No Topical, U nivers % ointment 10-21 ONCE, 1 ity o f 09:30: 09:14 dose, [facility] 00 :00 08/21/20 at [facility] 0330, Branch Routine Polyethylen 2019-10 Yes 17g 17 g, Unive rs e Glycol 10-21 Oral, ity of 3350 08:29: L90TOJA, [place] (MIRALAX) 09 Starting Medica l powder 17 g [facility] 08/21/20 at 0229, Until Discontinu ed, Routine, Constipati on lanolin 2019-10 Yes Topical, [facility] [place] s alcohol-mo- 10-21 PRN, ity of w.pet-ceres [...] tablet 650 24 Starting Medic al mg [facility] 08/21/20 at 0145, Until Discontinu ed, Routine, Pain (scale 1-3) sotalol 2019-10 2020- No Take by [facility] [place] s (BETAPACE) 10-21 mouth ity of 240 mg 07:43: 00:00 every 12 [place] tablet 30 :00 (twelve) Medical hours. Branch blood sugar Yes Use to [facility] ers diagnostic 4-25 check ity of (FREESTYLE 00:00: blood [place] LITE 00 glucose Medical STRIPS) 4-5 times Branch strip daily. blood sugar Yes Use to [facility] ers diagnostic 4-25 check ity of (FREESTYLE 00:00: blood [place] LITE 00 glucose Medical STRIPS) 4-5 times Branch strip daily. blood sugar Yes Use to [facility] ers diagnostic 4-25 check ity of (FREESTYLE 00:00: blood [place] LITE 00 glucose Medical STRIPS) 4-5 times Branch strip daily. blood sugar Yes Use to [facility] ers diagnostic 4-25 check ity of (FREESTYLE 00:00: blood [place] LITE 00 glucose Medical STRIPS) 4-5 times Branch strip daily. blood sugar Yes Use to [facility] ers diagnostic 4-25 check ity of (FREESTYLE 00:00: blood [place] LITE 00 glucose Medical STRIPS) 4-5 times Branch strip daily. blood sugar Yes Use to [facility] ers diagnostic 4-25 check ity of (FREESTYLE 00:00: blood [place] LITE 00 glucose Medical STRIPS) 4-5 times Branch strip daily. blood sugar Yes Use to [facility] ers diagnostic -25 check ity of (FREESTYLE 00:00: blood [place] LITE 00 glucose Medical STRIPS) 4-5 times Branch strip daily. Vital Signs Vital Name Observation Time Observation Value Comments Source Systolic blood 2021-08-22 13:00:00 148 mm[Hg] Univer sity of [facility] Diastolic blood 2021-08-22 13:00:00 84 mm[Hg] [facility] Heart rate 2021-08-22 13:00:00 103 /min [facility] Respiratory rate 2021-08-22 13:00:00 18 /min [facility] Oxygen saturation in 2021-08-22 13:00:00 95 /min [facility] Arterial blood by [facility] Pulse oximetry Branch Body temperature 2021-08-22 12:22:00 36.72 [place] [facility] Systolic blood 2020-12-17 18:35:00 139 mm[Hg] Univer sity of [facility] Diastolic blood 2020-12-17 18:35:00 87 mm[Hg] [facility] Heart rate 2020-12-17 18:35:00 110 /min [facility] Body temperature 2020-12-17 18:35:00 37.72 [place] Univ ersity of [place] [facility] Respiratory rate 2020-12-17 18:35:00 18 /min Univ ersity of [place] [facility] Oxygen saturation in 2020-12-17 18:35:00 93 /min University of Arterial blood by [facility] Pulse oximetry Branch Body height 2020-12-12 08:21:00 180.3 cm Universi ty of [place] [facility] Body weight 2020-12-12 08:21:00 103.42 kg Universi ty of [place] [facility] BMI 2020-12-12 08:21:00 31.80 kg/m2 Universi ty of [place] [facility] Systolic blood 2020-12-17 18:35:00 139 mm[Hg] Univer sity of pressure [place] [facility] Diastolic blood 2020-12-17 18:35:00 87 mm[Hg] Unive rsity of pressure [place] [facility] Heart rate 2020-12-17 18:35:00 110 /min Universi ty of [place] [facility] Body temperature 2020-12-17 18:35:00 37.72 [place] Univ ersity of [place] [facility] Respiratory rate 2020-12-17 18:35:00 18 /min Univ ersity of [place] [facility] Oxygen saturation in 2020-12-17 18:35:00 93 /min University of Arterial blood by [facility] Pulse oximetry Branch Body height 2020-12-12 08:21:00 180.3 cm Universi ty of [place] [facility] Body weight 2020-12-12 08:21:00 103.42 kg Universi ty of [place] [facility] BMI 2020-12-12 08:21:00 31.80 kg/m2 Universi ty of [place] [facility] Systolic blood 2020-08-23 19:27:00 140 mm[Hg] Univer sity of pressure [place] [facility] Diastolic blood 2020-08-23 19:27:00 79 mm[Hg] Unive rsity of pressure [place] [facility] Heart rate 2020-08-23 19:27:00 99 /min Universi ty of [place] [facility] Body temperature 2020-08-23 19:27:00 36 [place] Univ ersity of [place] [facility] Respiratory rate 2020-08-23 19:27:00 18 /min Univ ersity of [place] [facility] Oxygen saturation in 2020-08-23 19:27:00 93 /min University of Arterial blood by [facility] Pulse oximetry Branch Body weight 2020-08-21 07:20:00 104.962 kg Universi [facility] BMI 2020-08-21 07:20:00 32.27 kg/m2 [facility] Systolic blood 2020-08-23 19:27:00 140 mm[Hg] Univer sity of pressure [facility] Diastolic blood 2020-08-23 19:27:00 79 mm[facility]Hg] [facility] 2020-08-23 19:27:00 99 /min [facility] Body temperature 2020-08-23 19:27:00 36 [place] [facility] Respiratory rate 2020-08-23 19:27:00 18 /min Univ [facility] Oxygen saturation in 2020-08-23 19:27:00 93 /min [facility] Arterial blood by [facility] Pulse oximetry Branch Body weight 2020-08-21 07:20:00 104.962 kg [facility] BMI 2020-08-21 07:20:00 32.27 kg/m2 [facility] Procedures Procedure Date / Time Performing Clinician Source Performed POCT GLUCOSE (AUTOMATED) 2020-12-17 15:42:00 Vika Harrison G Uni [facility] BASIC METABOLIC PANEL 2020-12-17 10:45:00 Paul Bean [facility] (NA, K, CL, CO2, GLUCOSE, Akley Medica l Branch BUN, CREATININE, CA) CBC WITH DIFF 2020-12-17 10:45:00 Paul Bean [facility] POCT GLUCOSE (AUTOMATED) 2020-12-17 02:36:00 Vika Harrison [facility] XR TIBIA FIBULA 2 VW LEFT 2020-12-16 23:38:00 Paul Bean [facility] POCT GLUCOSE (AUTOMATED) 2020-12-16 23:20:00 Vika Harrison [facility] POCT GLUCOSE (AUTOMATED) 2020-12-16 20:10:00 Vika Harrison Uni [facility] POCT GLUCOSE (AUTOMATED) 2020-12-16 14:43:00 Harrison, Premal [facility] BASIC METABOLIC PANEL 2020-12-16 13:51:00 Paul Bean [facility] (NA, K, CL, CO2, GLUCOSE, Kaley Medica l Branch BUN, CREATININE, CA) CBC WITH DIFF 2020-12-16 13:51:00 Paul Bean [facility] POCT GLUCOSE (AUTOMATED) 2020-12-16 04:00:00 Harrison, Premal [facility] POCT GLUCOSE (AUTOMATED) 2020-12-16 00:14:00 Favio Harrisonal [facility] CHEST PULMONARY 2020-12-15 22:29:38 Paul Bean [facility] ANGIOGRAM [facility] POCT GLUCOSE (AUTOMATED) 2020-12-15 19:26:00 Favio Harrisonal [facility] POCT GLUCOSE (AUTOMATED) 2020-12-15 15:13:00 Vika Harrison [facility] HB ECG ROUTINE & RHYTHM 2020-12-15 14:25:27 Cailin Romo [facility] MAGNESIUM 2020-12-15 12:01:00 Paul Bean [facility] BASIC METABOLIC PANEL 2020-12-15 12:01:00 Paul Bean [facility] (NA, K, CL, CO2, GLUCOSE, [place] Medica l Branch BUN, CREATININE, CA) CBC WITH DIFF 2020-12-15 12:01:00 aPul Bean [facility] POCT GLUCOSE (AUTOMATED) 2020-12-15 03:57:00 Harrison, Favioal G Uni versity of [facility] POCT GLUCOSE (AUTOMATED) 2020-12-14 23:31:00 Harrison, Premal G Uni versity [facility] POCT GLUCOSE (AUTOMATED) 2020-12-14 19:08:00 Harrison, Premal G Uni versity of [facility] POCT GLUCOSE (AUTOMATED) 2020-12-14 15:11:00 Harrison, Premal G Uni versity of [facility] POCT GLUCOSE (AUTOMATED) 2020-12-14 02:36:00 Harrison, Premal G Uni versity of [facility] POCT GLUCOSE (AUTOMATED) 2020-12-13 23:32:00 Harrison, Premal G Uni versity of [facility] POCT GLUCOSE (AUTOMATED) 2020-12-13 18:08:00 Harrison, Premal G Uni versity of [facility] BASIC METABOLIC PANEL 2020-12-13 15:39:00 Paul Bean [facility] (NA, K, CL, CO2, GLUCOSE, [place] Medica l Branch BUN, CREATININE, CA) CBC WITH DIFF 2020-12-13 15:39:00 Paul Bean [facility] POCT GLUCOSE (AUTOMATED) 2020-12-13 14:06:00 Harrison, Premal G Uni versity of [facility] POCT GLUCOSE (AUTOMATED) 2020-12-13 03:07:00 Harrison, Premal G Uni versity of [facility] POCT GLUCOSE (AUTOMATED) 2020-12-12 23:52:00 Harrison, Premal G Uni versity of [facility] POCT GLUCOSE (AUTOMATED) 2020-12-12 20:28:00 Harrison, Premal G Uni versity of [facility] POCT GLUCOSE (AUTOMATED) 2020-12-12 19:14:00 Harrison, Premal G Uni versity of [facility] POCT GLUCOSE (AUTOMATED) 2020-12-12 14:33:00 Harrison, Premal G Uni versity of [facility] Branch MAGNESIUM 2020-12-12 08:58:00 Paul Bean [facility] BASIC METABOLIC PANEL 2020-12-12 08:58:00 Paul Bean [facility] (NA, K, CL, CO2, GLUCOSE, [place] Medica l Branch BUN, CREATININE, CA) CBC WITH DIFF 2020-12-12 08:58:00 Paul Bean [facility] US ABDOMEN LIMITED 2020-12-12 06:32:26 Paul Bean [facility] POCT GLUCOSE (AUTOMATED) 2020-12-12 03:40:00 Hunter Vika Fernando [facility] POCT GLUCOSE (AUTOMATED) 2020-12-12 00:06:00 Vika Harrison [facility] XR HIPS 3 VW LEFT 2020-12-11 20:20:00 [facility] & RHYTHM 2020-12-11 20:04:06 Demetrius [facility] VITAMIN B6, PLASMA 2020-12-11 19:[facility] 2020-12-11 19:06:00 Vika Harrison [facility] CREATINE KINASE 2020-12-11 18:22:00 [facility] B12, LEVEL 2020-12-11 18:22:00 Vikas [facility] FOLATE 2020-12-11 18:22[facility] 2020-12-11 18:22:00 Demetrius Cailin [facility] PROCALCITONIN 2020-12-11 18:22:00 [place] [facility] VITAMIN B1 (THIAMINE), 2020-12-11 18:22:00 [facility] [place] [facility] WHOLE BLOOD [facility] CT HEAD WO CONTRAST 2020-12-11 14:07:35 Sweetie Stout [facility] URINALYSIS 2020-12-11 13:44:00 Singer [facility] URINE CULTURE 2020-12-11 13:44:00 Singer [facility] COVID-19 (ID NOW RAPID 2020-12-11 12:31:00 Paco Lacey [facility] TESTING) Medical Branch LAB ONLY COVID 2020-12-11 12:31:00 Singer Paco [facility] INTERPRETATION [facility] Branch XR CHEST 1 VW 2020-12-11 12:07:24 Singer [facility] BLOOD CULTURE SCREEN 2020-12-11 12:02:00 Singer Paco [facility] MAGNESIUM 2020-12-11 12:02:00 [facility] FERR[facility] SERUM 2020-12-11 12:02:00 [facility] COMP. METABOLIC PANEL 2020-12-11 12:02:00 Singer [facility] ([id number]) [facility] Branch CBC WITH DIFF 2020-12-11 12:02:00 [facility] LACTIC ACID WHOLE BLOOD 2020-12-11 12:02:00 [facility] BLOOD CULTURE SCREEN 2020-12-11 11:42:00 Singer [facility] EMERGENCY SERVICES 2020-12-11 06:01:00 Doctor Unaowen, [facility] AGREEMENTS AND [place] [facility] AUTHORIZATIONS HOSPITAL ADMISSION 2020-12-11 06:01:00 Doctor Tabitha, [facility] Name [facility] HOME HEALTH - OTHER 2020-11-11 06:01:00 Doctor Tabitha, [facility] [place] [facility] HOME HEALTH - OTHER 2020-10-30 06:01:00 Doctor Tabitha, [facility] Name [facility] EXTERNAL PROVIDER RECORDS 2020-09-01 06:01:00 Doctor Tabitha, [facility] Name [facility] POCT GLUCOSE (AUTOMATED) 2020-08-23 18:09:00 Kelly [place] [facility] POCT GLUCOSE (AUTOMATED) 2020-08-23 14:14:00 Kelly [place] [facility] MAGNESIUM 2020-08-23 11:18:00 Ramya [facility] BASIC METABOLIC PANEL 2020-08-23 11:18:00 Ramya [facility] (NA, K, CL, CO2, GLUCOSE, Medica l Branch BUN, CREATININE, CA) CBC WITH DIFF 2020-08-23 11:18:00 Ramya [facility] POCT GLUCOSE (AUTOMATED) 2020-08-23 10:21:00 StefaniaKelly versity [facility] POCT GLUCOSE (AUTOMATED) 2020-08-23 05:55:00 WashingtonKelly versity of [facility] POCT GLUCOSE (AUTOMATED) 2020-08-23 03:00:00 WashingtonKelly versity [facility] POCT GLUCOSE (AUTOMATED) 2020-08-22 23:38:00 [place], Kelly Elias versity of [facility] POCT GLUCOSE (AUTOMATED) 2020-08-22 19:04:00 Stefania [facility]SE (AUTOMATED) 2020-08-22 13:49:00 Stefania Kelly Elias [facility] MAGNESIUM 2020-08-22 10:10:00 [place] [facility] HEPATIC FUNCTION PANEL 2020-08-22 10:10:00 Aguila Melchor [facility] ([id number]) (ALB,T.PRO,BILI Medical Branch T,BU/BC,ALT,AST,ALK PHOS) BASIC METABOLIC PANEL 2020-08-22 10:10:00 [place] [facility] (NA, K, CL, CO2, GLUCOSE, Medica l Branch BUN, CREATININE, CA) LIPID PANEL ([id number])(TOTAL 2020-08-22 10:10:00 [place] [facility] CHOLESTEROL, [facility] TRIGLYCERIDES, HDL) CBC WITH DIFF 2020-08-22 10:10:00 [place] [facility] POCT GLUCOSE (AUTOMATED) 2020-08-22 10:10:00 Stefania Kelly Elias [facility] POCT GLUCOSE (AUTOMATED) 2020-08-22 07:13:00 Stefania Kelly Elias [facility] POCT GLUCOSE (AUTOMATED) 2020-08-22 02:24:00 Stefania Kelly Elias [facility] POCT GLUCOSE (AUTOMATED) 2020-08-21 23:40:00 Stefania Kelly Elias [facility] POCT GLUCOSE (AUTOMATED) 2020-08-21 18:10:00 StefaniaKelly [facility] POCT GLUCOSE (AUTOMATED) 2020-08-21 13:39:00 StefaniaKelly [facility] ETHANOL 2020-08-21 12:35:00 Richie [facility] ACTIVATED PARTIAL 2020-08-21 12:35:00 Stefania [facility] GALV ONLY - SYPHILIS 2020-08-21 12:35:00 Stefania [facility] IGG/IGM [facility] LACTATE DEHYDROGENASE 2020-08-21 10:09:00 [place], [facility] GALV/CLC ONLY - URINE 2020-08-21 10:09:00 [facility] - 4 ER Medica l Branch PANEL URINALYSIS 2020-08-21 10:09:00 [place], [facility] URINE CULTURE 2020-08-21 10:09:00 [place], [facility] PROCALCITONIN 2020-08-21 10:09:00 Ramya, [facility] POCT GLUCOSE (AUTOMATED) 2020-08-21 09:41:00 StefaniaKelly [facility] PROTHROMBIN TIME / INR 2020-08-21 08:32:00 Ramya, [facility] ACTIVATED PARTIAL 2020-08-21 08:32:00 [place], [facility] C-REACTIVE PROTEIN 2020-08-21 08:31:00 [place], [facility] HEPATIC FUNCTION PANEL 2020-08-21 08:31:00 Ramya, [facility] ([id number]) (ALB,T.PRO,BILI Medical Branch T,BU/BC,ALT,AST,ALK PHOS) BASIC METABOLIC PANEL 2020-08-21 08:31:00 [place], [facility] (NA, K, CL, CO2, GLUCOSE, Medica l Branch BUN, CREATININE, CA) SEDIMENTATION RATE 2020-08-21 08:31:00 Ramya, [facility] CBC WITH DIFF 2020-08-21 08:31:00 Ramya, [facility] o f [facility] GLYCOSYLATED HEMOGLOBIN 2020-08-21 08:31:00 Ramya, [facility] (A1C) [facility] HIV 1/2 AG-AB WITH REFLEX 2020-08-21 08:31:00 Kelly [place] Un [facility] (ID NOW RAPID 2020-08-21 08:20:00 Ramya, [facility] TESTING) Medical Branch LAB ONLY COVID 2020-08-21 08:20:00 [place], [facility] INTERPRETATION [facility] Encounters Start End Encounter Admission Attending Care Care Encounter Source Date/Time Date/Time Type Type Clinicians Facility Department ID 2022-11-13 Outpatient 3 [id number] ENC[facility] REF [id number] [facility] 11:39:58 0201 [facility] [place] 2020-08-21 Inpatient U STEFANIA [facility] KVNG [id number] Univers 01:07:00 KELLY cantu [facility] 2022-11-14 2022-11-28 Inpatient 3 [facility] ENCPL DELVIS [id number] [facility] 20:40:00 13:29:00 shaggy 0202 [place] [facility] [place] 2021-08-22 2021-08-22 Emergency X [facility] ERT [id number] Univers 06:21:00 08:02:00 [facility] 2021-08-22 2021-08-22 Emergency [facility] [id number] Univers 06:21:00 08:02:00 Sweetie LOTT [id number] i ty roxana WARREN [id number] [facility] [id number] [facility] 084 Branch 2021-08-09 2021-08-09 Outpatient JACQUELYN HAINES [id number] [facility] 10:27:03 10:27:03 ADRIANA lopez of Medicin e 2020-12-28 2020-12-28 Telephone [facility] [id number] Univers 00:00:00 00:00:00 Calvin H PRIMARY [id number] it y of [id number] [place] [id number] Ma dical 220 Branch 2020-12-28 2020-12-28 Telephone [facility] [id number] 00:00:00 00:00:00 Calvin H PRIMARY [id number] CARE [id number] PAVILLION [id number] 220 2020-12-19 2020-12-19 Transition Tuan Peters [id number] Univers 00:00:00 00:00:00 of Care Ruchi Braswell [id number] it y of [id number] [id number] [facility] 403 Branch 2020-12-19 2020-12-19 Transition Tuan Peters [id number] 00:00:00 00:00:00 of Care Ruchi Braswell [id number] [place] [id number] [facility] 2020-12-11 2020-12-17 [facility] Paco Lacey [id number] Univers 05:11:00 16:00:00 Encounter Vika Harrisony [id number] ity of [facility] [id number] [place] [id number] [facility] 096 Branch 2020-12-11 2020-12-17 Inpatient X [facility] [id number] Univers 05:11:00 16:00:00 ity of [facility] 2020-12-11 2020-12-17 [facility] Paco Lacey 1.2.840.1 [id number] 05:11:00 16:00:00 Encounter Vika Harrison G Monique [id number] [facility] [id number] 2020-11-16 2020-11-16 Emergency X , [facility] ERT [id number] Univers 09:31:00 09:31:00 PACO cantu of [facility] 2020-11-11 2020-11-11 Orders Doctor BASILIA [id number] Univers 00:00:00 00:00:00 Only Unassigned, MONIQUE [id number] ity of [place] [facility] [id number] Jeff as [id number] [address] 2020-11-11 2020-11-11 Orders Doctor BASILIA [id number] 00:00:00 00:00:00 Only Unassigned, MONIQUE [id number] [place] [facility] [id number] [id number] 2020-11-07 2020-11-07 Telephone [facility] [id number] Univers 00:00:00 00:00:00 Angi Lott [id number] [id number] [place] Profess[place] [id number] [address] 2020-11-07 2020-11-07 Telephone [facility] [id number] 00:00:00 00:00:00 Anig Lott 350.1.13.10 [place] 4.2.7.2.686 Professio [id number] [address] 2020-10-30 2020-10-30 Orders Doctor BASILIA 1.2.840.114 [id number] Univers 00:00:00 00:00:00 Only Unassigned, MONIQUE 350.1.13.10 ity of [place] 4.2.7.2.686 Jeff as [id number] [address] 2020-10-30 2020-10-30 Orders Doctor CUI 1.2.840.114 [id number] 00:00:00 00:00:00 Only Unassigned, MONIQUE 350.1.13.10 [place] [facility] 4.2.7.2.686 [id number] 009 2020-09-26 2020-09-26 Telephone STONE Mccabe 1.2.840.114 [id number] Univers 00:00:00 00:00:00 Jl Renato [facility] 350.1.13.10 i ty of [place] [id number] [facility] [address] 2020-09-26 2020-09-26 Telephone STONE Mccabe 1.2.840.114 [id number] 00:00:00 00:00:00 Jl Renato [facility] 350.1.13.10 CLINICS 4.2.7.2.686 [id number] 027 2020-09-01 2020-09-01 Orders Doctor BASILIA 1.2.840.114 [id number] Univers 00:00:00 00:00:00 Only Unassigned, MONIQUE 350.1.13.10 ity of [place] [facility] 4.2.7.2.686 Jeff as [id number] [facility] [address] 2020-09-01 2020-09-01 Orders Doctor BASILIA 1.2.840.114 [id number] 00:00:00 00:00:00 Only Unassigned, MONIQUE 350.1.13.10 [place] 4.2.7.2.686 [id number] 009 2020-08-25 2020-08-25 Transition Tuan Peters 1.2.840.114 [id number] Univers 00:00:00 00:00:00 of Care Ruchi Braswell 350.1.13.10 it y [place] [id number] [facility] [address] 2020-08-25 2020-08-25 Transition Tuan Peters 1.2.840.114 [id number] 00:00:00 00:00:00 of Care Ruchi Braswell 350.1.13.10 [place] 4.2.7.2.686 [id number] 403 2020-08-21 2020-08-23 [facility] Kelly [place] 1. 2.840.114 [id number] Univers 01:07:00 18:35:00 Encounter Mukul Gallardo 350.1.13. 10 [facility] 4.2.7.2.686 Jeff as [id number] [place] 576[address] [facility] 2020-08-21 2020-08-23 [facility] Ayleen [place] 1.2.840.114 [id number] 01:07:00 18:35:00 Encounter Kelly Amaya 350.1.13.10 [facility] 4.2.7.2.686 [id number] 095 Results Test Description Test Time Test Comments Results Result Comments Source POCT GLUCOSE (AUTOMATED) 2020-12-17 15:43:35 Test Item Value Reference Range Interpretation Comme nts POCT GLU (test code = 8777728600) 129 mg/dL 70-110 H Lab Interpretation (test code = 28072-4) Abnormal [facility] METABOLIC PANEL (NA, K, CL, CO2, GLUCOSE, BUN, CREATININE, CA)2020-12-17 11:45:07 Test Item Value Reference Range Interpretation Comments NA (test code = 137 mmol/L 135-145 3463698816) K (test code = 3.5 mmol/L 3.5-5.0 8149556486) CL (test code = 103 mmol/L 98-108 5545243399) CO2 TOTAL (test code = 26 mmol/L 23-31 4186327603) AGAP (test code = 2-16 0580003438) BUN (test code = 11 mg/dL 7-23 2465818081) GLUCOSE (test code = 175 mg/dL 70-110 H 9285679897) CREATININE (test code = 0.62 mg/dL 0.60-1.25 4412226808) CALCIUM (test code = 9.0 mg/dL 8.6-10.6 3395359792) eGFR Calculation mL/min/1.73m2 (Non-) (test code = 9301755378) eGFR Calculation mL/min/1.73m2 () (test code = 0928445367) JAMES (test code = JAMES) Association of [...] tests). Lab Interpretation Abnormal (test code = 68671-5) [facility] WITH [id number] 11:07:27 Test Item Value Reference Range Interpretation Comments WBC (test code = See_Comment H [Automated 2687-2) message] The sy stem which generated this result transmitted reference range : 4.20 - 10.70 10*3/?L. The reference range was not used to interpret this result as normal/abnormal . RBC (test code = See_Comment [Automated 109-8) message] The sy stem which generated this [...] RDW-SD (test code = 45.2 fL 38.5-51.6 58550-5) RDW-CV (test code = 16.9 % 12.1-15.4 H 788-0) PLT (test code = See_Comment H [Automated 777-3) message] The sy stem which generated this result transmitted reference range : 150 - 328 10*3/ ?L. The reference r torito was not used to interpret this result as normal/abnormal . MPV (test code = 8.1 fL 9.8-13.0 L 30553-1) NRBC/100 WBC (test See_Comment [Automat ed code = 8018229956) message] The system which generated this result transmitted reference range : 0.0 - 10.0 /100 WBCs. The refer ence range was not u sed to interpret th is result as normal/abnormal . NRBC x10^3 (test code <0.01 See_Comment [Auto mated = 5542894438) message] The s ystem which generated this result transmitted reference range : 10*3/?L. The reference range was not used to interpret this result as normal/abnormal . GRAN MAT (NEUT) % 72.8 % (test code = 770-8) IMM GRAN % (test code 0.60 % = 9476561305) LYMPH % (test code = 18.4 % 736-9) MONO % (test code = 5.7 % 5905-5) EOS % (test code = 1.8 % 713-8) BASO % (test code = 0.7 % 706-2) GRAN MAT x10^3(ANC) 8.23 10*3/uL 1.99-6.95 H (test code = 4611952774) IMM GRAN x10^3 (test 0.07 10*3/uL 0.00-0.06 H code = 8137250295) LYMPH x10^3 (test code 2.08 10*3/uL 1.09-3.23 = 731-0) MONO x10^3 (test code 0.65 10*3/uL 0.36-1.02 = 742-7) EOS x10^3 (test code = 0.20 10*3/uL 0.06-0.53 711-2) BASO x10^3 (test code 0.08 10*3/uL 0.01-0.09 = 704-7) Lab Interpretation Abnormal (test code = 53448-4) [facility] 06:03:38 Test Item Value Reference Range Interpretation Comments POCT GLU (test code = 6338006114) 75 mg/dL 70-110 Lab Interpretation (test code = Normal 68303-3) [facility], [id number] 00:01:00 Test Item Value Reference Range Interpretation Comments VIT B6 (test code = 13.1 nmol/L 20.0-125.0 L INTERPRE TIVE 91976-5) INFORMATION: Vi tamin B6 (Pyridoxal 5-Phosphate) Pyridoxal 5'-phosphate me asured in a specimen collected follo wing an 8-hour or overnight fast accurately clara cates vitamin B6 nutritional sta tus. Non-fasting spe cimen concentration reflects recent vitamin intake. This test was develo ped and its perform ance characteristics determined by [facility]. I t has not been cleare d or approved by the [place] Food and Drug Administration. This test was perfor med in a CLIA certifie d laboratory and is intended for cl inical purposes.Perfor med By: [employer] [place] [address] [id number] Director: Namrata Klein MD Lab Interpretation Abnormal (test code = 94455-1) [facility] TIBIA FIBULA 2 VW [id number] 23:57:09 Tricompartmental knee joint osteoarthrosis.XR TIBIA FIBULA [...] No acute fracture or dislocation.IMPRESSIONTricompartmental knee joint osteoarthrosis.[facility] GLUCOSE (AUTOMATED) 2020-12-16 23:27:00 Test Item Value Reference Range Interpretation Comments POCT GLU (test code = 7395288161) 114 mg/dL 70-110 H Lab Interpretation (test code = Abnormal 01890-0) [facility] GLUCOSE (AUTOMATED)2020-12-16 20:12:00 Test Item Value Reference Range Interpretation Comments POCT GLU (test code = 4548782316) 105 mg/dL 70-110 Lab Interpretation (test code = Normal 46171-9) [facility] GLUCOSE (AUTOMATED)2020-12-16 14:44:00 Test Item Value Reference Range Interpretation Comments POCT GLU (test code = 4062059352) 153 mg/dL 70-110 H Lab Interpretation (test code = Abnormal 16272-7) [facility] METABOLIC PANEL (NA, K, CL, CO2, GLUCOSE, BUN, CREATININE, CA)2020-12-16 14:23:00 Test Item Value Reference Range Interpretation Comments NA (test code = 138 mmol/L 135-145 9247693639) K (test code = 3.4 mmol/L 3.5-5.0 L 8438272722) CL (test code = 100 mmol/L 98-108 7533937856) CO2 TOTAL (test code = 31 mmol/L 23-31 6140055412) AGAP (test code = 2-16 3725473972) BUN (test code = 11 mg/dL 7-23 5151019613) GLUCOSE (test code = 162 mg/dL 70-110 H 1279678576) CREATININE (test code = 0.64 mg/dL 0.60-1.25 7777304864) CALCIUM (test code = 8.9 mg/dL 8.6-10.6 1723442718) eGFR Calculation mL/min/1.73m2 (Non-) (test code = 8470598325) eGFR Calculation mL/min/1.73m2 () (test code = 0323378773) JAMES (test code = JAMES) Association of [...] tests). Lab Interpretation Abnormal (test code = 69558-2) [facility] WITH [id number] 14:05:00 Test Item Value Reference Range Interpretation Comments WBC (test code = See_Comment H [Automated 8995-2) message] The sy stem which generated this result transmitted reference range : 4.20 - 10.70 10*3/?L. The reference range was not used to interpret this result as normal/abnormal . RBC (test code = See_Comment [Automated 475-8) message] The sy stem which generated this [...] RDW-SD (test code = 45.4 fL 38.5-51.6 07228-0) RDW-CV (test code = 17.0 % 12.1-15.4 H 788-0) PLT (test code = See_Comment H [Automated 777-3) message] The sy stem which generated this result transmitted reference range : 150 - 328 10*3/ ?L. The reference r torito was not used to interpret this result as normal/abnormal . MPV (test code = 8.0 fL 9.8-13.0 L 60020-1) NRBC/100 WBC (test See_Comment [Automat ed code = 7585158755) message] The system which generated this result transmitted reference range : 0.0 - 10.0 /100 WBCs. The refer ence range was not u sed to interpret th is result as normal/abnormal . NRBC x10^3 (test code <0.01 See_Comment [Auto mated = 9231821302) message] The s ystem which generated this result transmitted reference range : 10*3/?L. The reference range was not used to interpret this result as normal/abnormal . GRAN MAT (NEUT) % 70.0 % (test code = 770-8) IMM GRAN % (test code 0.70 % = 7712171264) LYMPH % (test code = 20.5 % 736-9) MONO % (test code = 7.1 % 5905-5) EOS % (test code = 1.0 % 713-8) BASO % (test code = 0.7 % 706-2) GRAN MAT x10^3(ANC) 9.44 10*3/uL 1.99-6.95 H (test code = 4338465290) IMM GRAN x10^3 (test 0.09 10*3/uL 0.00-0.06 H code = 0070871518) LYMPH x10^3 (test code 2.76 10*3/uL 1.09-3.23 = 731-0) MONO x10^3 (test code 0.96 10*3/uL 0.36-1.02 = 742-7) EOS x10^3 (test code = 0.13 10*3/uL 0.06-0.53 711-2) BASO x10^3 (test code 0.10 10*3/uL 0.01-0.09 H = 704-7) Lab Interpretation Abnormal (test code = 09186-7) [facility] Culture - Peripheral # [id number] 13:01:00 Test Item Value Reference Range Interpretation Comments Blood Culture-Aerobic No organisms No growth Previo us (test code = 60670-5) isolated prelim inary verified result was Culture In Progress on 12/11/2020 at 100 1 CSTPrevious preliminary verified result was No growth a t 24 hours on 12/12/2020 at 070 1 CSTPrevious preliminary verified result was No growth a t 48 hours on 12/13/2020 at 070 1 CSTPrevious preliminary verified result was No growth a t 72 hours on 12/14/2020 at 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 organisms No growth Previous Culture-Anaerobic isolated preliminar y (test code = 24917-5) verifi ed result was Culture In Progress on 12/11/2020 at 100 1 CSTPrevious preliminary verified result was No growth a t 24 hours on 12/12/2020 at 070 1 CSTPrevious preliminary verified result was No growth a t 48 hours on 12/13/2020 at 070 1 CSTPrevious preliminary verified result was No growth a t 72 hours on 12/14/2020 at 070 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 Lab Interpretation Normal (test code = 10032-2) [facility] Culture - Peripheral # [id number] 13:01:00 Test Item Value Reference Range Interpretation Comments Blood Culture-Aerobic No organisms No growth Previo us (test code = 19707-7) isolated prelim inary verified result was Culture In Progress on 12/11/2020 at 100 1 CSTPrevious preliminary verified result was No growth a t 24 hours on 12/12/2020 at 070 1 CSTPrevious preliminary verified result was No growth a t 48 hours on 12/13/2020 at 070 1 CSTPrevious preliminary verified result was No growth a t 72 hours on 12/14/2020 at 070 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 organisms No growth Previous Culture-Anaerobic isolated preliminar y (test code = 28993-7) verifi ed result was Culture In Progress on 12/11/2020 at 100 1 CSTPrevious preliminary verified result was No growth a t 24 hours on 12/12/2020 at 070 1 CSTPrevious preliminary verified result was No growth a t 48 hours on 12/13/2020 at 070 1 CSTPrevious preliminary verified result was No growth a t 72 hours on 12/14/2020 at 070 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 Lab Interpretation Normal (test code = 96916-9) [facility] GLUCOSE (AUTOMATED)2020-12-16 04:01:00 Test Item Value Reference Range Interpretation Comments POCT GLU (test code = 7251374822) 156 mg/dL 70-110 H Lab Interpretation (test code = Abnormal 15603-3) [facility] GLUCOSE (AUTOMATED)2020-12-16 00:24:00 Test Item Value Reference Range Interpretation Comments POCT GLU (test code = 5501259191) 115 mg/dL 70-110 H Lab Interpretation (test code = Abnormal 49959-2) [facility] CHEST PULMONARY [id number] 23:34:55No pulmonary emboli. No interval change in [...] stableappearance of intra and extrahepatic biliary ductal dilatation.[facility] GLUCOSE (AUTOMATED)2020-12-15 19:28:00 Test Item Value Reference Range Interpretation Comments POCT GLU (test code = 1331790691) 140 mg/dL 70-110 H Lab Interpretation (test code = Abnormal 34868-8) [facility] 15:26:00 Test Item Value Reference Range Interpretation Comments MAGNESIUM (test code = 8102610464) 2.2 mg/dL 1.7-2.4 Lab Interpretation (test code = Normal 65749-8) [facility] GLUCOSE (AUTOMATED)2020-12-15 15:15:00 Test Item Value Reference Range Interpretation Comments POCT GLU (test code = 8125763146) 181 mg/dL 70-110 H Lab Interpretation (test code = Abnormal 78062-8) [facility] (NA, K, CL, CO2, GLUCOSE, BUN, CREATININE, CA)2020-12-15 13:07:00 Test Item Value Reference Range Interpretation Comments NA (test code = 136 mmol/L 135-145 9131677783) K (test code = 3.6 mmol/L 3.5-5.0 8318618402) CL (test code = 96 mmol/L 98-108 L 9194866209) CO2 TOTAL (test code = 29 mmol/L 23-31 7594028925) AGAP (test code = 2-16 9481520048) BUN (test code = 12 mg/dL 7-23 5318986826) GLUCOSE (test code = 183 mg/dL 70-110 H 0820653512) CREATININE (test code = 0.70 mg/dL 0.60-1.25 4264346493) CALCIUM (test code = 9.2 mg/dL 8.6-10.6 3304792907) eGFR Calculation mL/min/1.73m2 (Non-) (test code = 8822431910) eGFR Calculation mL/min/1.73m2 () (test code = 3708708827) JAMES (test code = JAMES) Association of [...] tests). Lab Interpretation Abnormal (test code = 73695-8) [facility] WITH [id number] 12:32:00 Test Item Value Reference Range Interpretation [...] RDW-SD (test code = 44.4 fL 38.5-51.6 65740-5) RDW-CV (test code = 17.7 % 12.1-15.4 H 788-0) PLT (test code = See_Comment H [Automated 777-3) message] The system which generated this result transmit ronan reference range : 150 - 328 10*3/ ?L. The reference range was not u sed to interpret th is result as normal/abnormal . MPV (test code = 8.1 fL 9.8-13.0 L 85201-2) NRBC/100 WBC (test See_Comment [Automat ed code = 3021639049) message] The system which generated this result transmit ronan reference range : 0.0 - 10.0 /100 WBCs. The reference range was not used to interpret this result as normal/abnormal . NRBC x10^3 (test code <0.01 See_Comment [Auto mated = 5455883884) message] The system which generated this result transmit ronan reference range : 10*3/?L. The reference range was not used to interpret this result as normal/abnormal . GRAN MAT (NEUT) % 74.5 % (test code = 770-8) IMM GRAN % (test code 0.70 % = 4181431166) LYMPH % (test code = 17.4 % 736-9) MONO % (test code = 6.8 % 5905-5) EOS % (test code = 0.2 % 713-8) BASO % (test code = 0.4 % 706-2) GRAN MAT x10^3(ANC) 11.99 10*3/uL 1.99-6.95 H (test code = 3692734762) IMM GRAN x10^3 (test 0.11 10*3/uL 0.00-0.06 H code = 3333299255) LYMPH x10^3 (test code 2.80 10*3/uL 1.09-3.23 = 731-0) MONO x10^3 (test code 1.10 10*3/uL 0.36-1.02 H = 742-7) EOS x10^3 (test code = 0.03 10*3/uL 0.06-0.53 L 711-2) BASO x10^3 (test code 0.06 10*3/uL 0.01-0.09 = 704-7) Lab Interpretation Abnormal (test code = 18464-1) [facility]2020-12-15 04:16:00 Test Item Value Reference Range Interpretation Comments POCT GLU (test code = 7828944275) 200 mg/dL 70-110 H Lab Interpretation (test code = Abnormal 92965-6) [facility]1 (THIAMINE), WHOLE [id number] 00:30:00 Test Item Value Reference Range Interpretation Comments Vitamin B1, Whole 136 nmol/L 70-180 INTERPRETI VE INFORMATION: Blood (test code = Vitamin B 1, Whole Blood 28809-9) This assay júnior ures the concentration o f thiamine diphosphate (TD P), the primary active form of vitamin B1. Nick roximately 90 percent of v itamin B1 present in whol e blood is TDP. Thiamine a nd thiamine monoph osphate, which comprise the remaining 10 pe rcent, are not measured. T his test was developed a nd its performance characteristics determined by [facility]. I t has not been cleared or approved by the [place] Food and Drug Administration. This test was performed i n a CLIA certified labor atory and is intended for clinical purposes.Perfor med By: [facility] [place], [place] [address]B aboratory Director: Namrata Klein MD [facility] GLUCOSE (AUTOMATED)2020-12-14 23:35:00 Test Item Value Reference Range Interpretation Comments POCT GLU (test code = 0217001330) 151 mg/dL 70-110 H Lab Interpretation (test code = Abnormal 01864-8) [facility] GLUCOSE (AUTOMATED)2020-12-14 19:19:00 Test Item Value Reference Range Interpretation Comments POCT GLU (test code = 5727547065) 193 mg/dL 70-110 H Lab Interpretation (test code = Abnormal 73286-4) [facility] GLUCOSE (AUTOMATED)2020-12-14 15:22:00 Test Item Value Reference Range Interpretation Comments POCT GLU (test code = 8864702959) 221 mg/dL 70-110 H Lab Interpretation (test code = Abnormal 93553-9) [facility] GLUCOSE (AUTOMATED)2020-12-14 02:37:00 Test Item Value Reference Range Interpretation Comments POCT GLU (test code = 6318262597) 210 mg/dL 70-110 H Lab Interpretation (test code = Abnormal 07906-1) [facility] GLUCOSE (AUTOMATED)2020-12-13 23:33:00 Test Item Value Reference Range Interpretation Comments POCT GLU (test code = 0991719341) 182 mg/dL 70-110 H Lab Interpretation (test code = Abnormal 60612-1) [facility] GLUCOSE (AUTOMATED)2020-12-13 18:09:00 Test Item Value Reference Range Interpretation Comments POCT GLU (test code = 1311550020) 150 mg/dL 70-110 H Lab Interpretation (test code = Abnormal 02990-4) [facility] METABOLIC PANEL (NA, K, CL, CO2, GLUCOSE, BUN, CREATININE, CA)2020-12-13 16:27:00 Test Item Value Reference Range Interpretation Comments NA (test code = 136 mmol/L 135-145 7841664947) K (test code = 3.7 mmol/L 3.5-5.0 7248606119) CL (test code = 96 mmol/L 98-108 L 8540242145) CO2 TOTAL (test code = 29 mmol/L 23-31 1728649751) AGAP (test code = 2-16 2408430579) BUN (test code = 6 mg/dL 7-23 L 8807173255) GLUCOSE (test code = 212 mg/dL 70-110 H 8142798605) CREATININE (test code = 0.61 mg/dL 0.60-1.25 2072676411) CALCIUM (test code = 9.5 mg/dL 8.6-10.6 4349620973) eGFR Calculation mL/min/1.73m2 (Non-) (test code = 0356673576) eGFR Calculation mL/min/1.73m2 () (test code = 0046989784) JAMES (test code = JAMES) Association of [...] tests). Lab Interpretation Abnormal (test code = 83759-4) [facility] WITH [id number] 16:10:00 Test Item Value Reference Range Interpretation [...] RDW-SD (test code = 43.3 fL 38.5-51.6 38753-8) RDW-CV (test code = 16.2 % 12.1-15.4 H 788-0) PLT (test code = See_Comment H [Automated 777-3) message] The sy stem which generated this result transmitted reference range : 150 - 328 10*3/ ?L. The reference r torito was not used to interpret this result as normal/abnormal . MPV (test code = 8.2 fL 9.8-13.0 L 60118-6) NRBC/100 WBC (test See_Comment [Automat ed code = 7253788486) message] The system which generated this result transmitted reference range : 0.0 - 10.0 /100 WBCs. The refer ence range was not u sed to interpret th is result as normal/abnormal . NRBC x10^3 (test code <0.01 See_Comment [Auto mated = 3496828282) message] The s ystem which generated this result transmitted reference range : 10*3/?L. The reference range was not used to interpret this result as normal/abnormal . GRAN MAT (NEUT) % 86.2 % (test code = 770-8) IMM GRAN % (test code 0.70 % = 8787227880) LYMPH % (test code = 10.2 % 736-9) MONO % (test code = 2.5 % 5905-5) EOS % (test code = 0.1 % 713-8) BASO % (test code = 0.3 % 706-2) GRAN MAT x10^3(ANC) 9.61 10*3/uL 1.99-6.95 H (test code = 8765155942) IMM GRAN x10^3 (test 0.08 10*3/uL 0.00-0.06 H code = 6083338892) LYMPH x10^3 (test code 1.14 10*3/uL 1.09-3.23 = 731-0) MONO x10^3 (test code 0.28 10*3/uL 0.36-1.02 L = 742-7) EOS x10^3 (test code = <0.03 0.06-0.53 L 711-2) BASO x10^3 (test code 0.03 10*3/uL 0.01-0.09 = 704-7) Lab Interpretation Abnormal (test code = 43705-2) [facility]2020-12-13 14:16:00 Test Item Value Reference Range Interpretation Comments POCT GLU (test code = 2424747895) 236 mg/dL 70-110 H Lab Interpretation (test code = Abnormal 58609-5) [facility] COVID [id number] 04:58:00COVID DMT InterpretationInterpretation/Recommendations: Molecular NAAT Tests for [...] record. [facility] LABORATORY SERVICESCOVID [id number] Rapid ID NOW (no units) ? ? Date ? Value ? 12/11/2020 ? Not Detected ? ? ? 11/16/2020 ? Not Detected ? ? ? 08/21/2020 ? Not Detected ? [facility] 2020-12-13 03:11:00 Test Item Value Reference Range Interpretation Comments POCT GLU (test code = 9253789375) 171 mg/dL 70-110 H Lab Interpretation (test code = Abnormal 86176-0) [facility] GLUCOSE (AUTOMATED)2020-12-13 00:00:00 Test Item Value Reference Range Interpretation Comments POCT GLU (test code = 6103171354) 118 mg/dL 70-110 H Lab Interpretation (test code = Abnormal 63116-5) [facility]2020-12-12 20:29:00 Test Item Value Reference Range Interpretation Comments POCT GLU (test code = 9471591271) 173 mg/dL 70-110 H Lab Interpretation (test code = Abnormal 85699-4) [facility] CenterUS ABDOMEN [id number] 19:56:17 1. ?Hepatic steatosis. However, limited evaluation [...] main portal veinwasevaluated with color Doppler imaging. Forensic Science Examiner images were obtainedfor the record. COMPARISON: Ultrasound [...] normal where visualized. SPLEEN:No images were obtained. Wymb, Radiant Results Inft User - 12/12/2020 1:57 PM CSTEXAM: US ABDOMEN LIMITEDHISTORY: 70 years-old male with RUQ ultrasound to assess for common bileduct dilation .TECHNIQUE: Limited abdominal ultrasound focused on the liver, biliarysystem, pancreas, and spleen was performed. The main portal vein wasevaluated with color Doppler imaging. Forensic Science Examiner images wereobtainedfor the record.COMPARISON: Ultrasound abdomen 11/17/2028. [...] reviewed this study and agree with the abovereport.[facility]2020-12-12 19:24:00 Test Item Value Reference Range Interpretation Comments POCT GLU (test code = 5914960073) 230 mg/dL 70-110 H Lab Interpretation (test code = Abnormal 70743-2) [facility] CHEST 1 [id number] 15:16:46 Low lung volumes with mild perihilar [...] reviewed this study and agree with theabove report.[facility]2020-12-12 14:34:00 Test Item Value Reference Range Interpretation Comments POCT GLU (test code = 2944752690) 225 mg/dL 70-110 H Lab Interpretation (test code = Abnormal 84816-7) [facility] CenterURINE [id number] 13:28:00 Test Item Value Reference Range Interpretation Comments URINE CULTURE (test < 10,000 CFU/mL mixed code = 630-4) aerobic organisms - suggests endogenous microbial contamination [facility] (NA, K, CL, CO2, GLUCOSE, BUN, CREATININE, CA)2020-12-12 10:05:00 Test Item Value Reference Range Interpretation Comments NA (test code = 136 mmol/L 135-145 6693867014) K (test code = 3.5 mmol/L 3.5-5.0 7839163636) CL (test code = 100 mmol/L 98-108 1618227162) CO2 TOTAL (test code = 31 mmol/L 23-31 5293062870) AGAP (test code = 2-16 4375755263) BUN (test code = 7 mg/dL 7-23 7542340252) GLUCOSE (test code = 259 mg/dL 70-110 H 4437432737) CREATININE (test code = 0.63 mg/dL 0.60-1.25 8574035020) CALCIUM (test code = 8.5 mg/dL 8.6-10.6 L 5988796620) eGFR Calculation mL/min/1.73m2 (Non-) (test code = 4884457747) eGFR Calculation mL/min/1.73m2 () (test code = 4546826310) JAMES (test code = JAMES) Association of [...] tests). Lab Interpretation Abnormal (test code = 70759-6) [facility] Ixppz5530-26-30 10:05:00 Test Item Value Reference Range Interpretation Comments MAGNESIUM (test code = 6803157475) 1.9 mg/dL 1.7-2.4 Lab Interpretation (test code = Normal 26311-1) [facility] with Sdvtcymcrsgd4503-21-12 09:48:00 Test Item Value Reference Range Interpretation [...] RDW-SD (test code = 46.0 fL 38.5-51.6 67724-0) RDW-CV (test code = 16.1 % 12.1-15.4 H 788-0) PLT (test code = See_Comment H [Automated 777-3) message] The sy stem which generated this result transmitted reference range : 150 - 328 10*3/ ?L. The reference r torito was not used to interpret this result as normal/abnormal . MPV (test code = 8.6 fL 9.8-13.0 L 17755-3) NRBC/100 WBC (test See_Comment [Automat ed code = 0273955832) message] The system which generated this result transmitted reference range : 0.0 - 10.0 /100 WBCs. The refer ence range was not u sed to interpret th is result as normal/abnormal . NRBC x10^3 (test code <0.01 See_Comment [Auto mated = 9683404229) message] The s ystem which generated this result transmitted reference range : 10*3/?L. The reference range was not used to interpret this result as normal/abnormal . GRAN MAT (NEUT) % 70.2 % (test code = 770-8) IMM GRAN % (test code 0.30 % = 5370462471) LYMPH % (test code = 18.8 % 736-9) MONO % (test code = 5.0 % 5905-5) EOS % (test code = 5.2 % 713-8) BASO % (test code = 0.5 % 706-2) GRAN MAT x10^3(ANC) 6.05 10*3/uL 1.99-6.95 (test code = 4139718896) IMM GRAN x10^3 (test 0.03 10*3/uL 0.00-0.06 code = 4535046723) LYMPH x10^3 (test code 1.62 10*3/uL 1.09-3.23 = 731-0) MONO x10^3 (test code 0.43 10*3/uL 0.36-1.02 = 742-7) EOS x10^3 (test code = 0.45 10*3/uL 0.06-0.53 711-2) BASO x10^3 (test code 0.04 10*3/uL 0.01-0.09 = 704-7) Lab Interpretation Abnormal (test code = 77042-7) [facility]2020-12-12 03:42:00 Test Item Value Reference Range Interpretation Comments POCT GLU (test code = 196 mg/dL 70-110 H Notifi ed Provider [id number]) Lab Interpretation (test Abnormal code = 86000-8) [facility] CenterFOLATE2021-[facility] 02:24:00 Test Item Value Reference Range Interpretation Comments FOLATE SER (test code = 3411425621) 5.8 ng/mL 3.0-20.0 Lab Interpretation (test code = Normal 19664-0) [facility] CenterVITAMIN B12, [id number] 00:55:00 Test Item Value Reference Range Interpretation Comments VIT B12 (test code = 844 pg/mL 240-930 1202675694) JAMES (test code = JAMES) Biotin has been reported to cause a positive bias, interpret results relative to patient's use of biotin. Lab Interpretation (test Normal code = 82741-1) [facility]2020-12-12 00:14:00 Test Item Value Reference Range Interpretation Comments POCT GLU (test code = 7234112794) 164 mg/dL 70-110 H Lab Interpretation (test code = Abnormal 75637-2) [facility] CenterCREATINE [id number] 23:42:00 Test Item Value Reference Range Interpretation Comments CK (test code = 2537898035) <20 33-194 L Lab Interpretation (test code = Abnormal 51093-7) [facility] CenterTHYROID STIMULATING [id number] 23:17:00 Test Item Value Reference Range Interpretation Comments TSH (test code = See_Comment Biotin has been 1802045366) reported to cau se a negative bias, interpret resul ts relative to pat ient's use of biotin. [Automated mess age] The system Basha h generated this result transmitted ref erence range: 0.45 - 4 .70 mIU/L. The refe rence range was not u sed to interpret this result as normal/abnor mal. Lab Interpretation (test Normal code = 87323-0) [facility] CenterXR HIPS 3 VW [id number] 21:41:53No appreciable fracture lines. RL: 6200 ICAL [...] No osseous erosions.IMPRESSIONNo appreciable fracture lines.RL: 6200 [facility]PROCALCITONIN20[facility] 20:00:00 Test Item Value Reference Range Interpretation Comments Procalcitonin (test 0.13 ng/mL <0.07 H code = 8710495119) JAMES (test code = JAMES) INTERPRETATION OF [...] biotics/default.asp Lab Interpretation Abnormal (test code = 65258-8) [facility] CenterPOMD GLUCOSE (AUTOMATED)2020-12-11 19:07:00 Test Item Value Reference Range Interpretation Comments POCT GLU (test code = 0008919717) 274 mg/dL 70-110 H Lab Interpretation (test code = Abnormal 12591-0) [facility] CenterMAGNESIUM2021-03-01 18:31:00 Test Item Value Reference Range Interpretation Comments MAGNESIUM (test code = 2588365622) 1.9 mg/dL 1.7-2.4 Lab Interpretation (test code = Normal 40493-7) [facility] CenterFERRITIN [id number] 18:31:00 Test Item Value Reference Range Interpretation Comments FERRITIN (test code = 178.0 ng/mL 18.0-464.0 7132696950) JAMES (test code = JAMES) Biotin has been reported to cause a negative bias, interpret results relative to patient's use of biotin. Lab Interpretation (test Normal code = 86520-2) [facility] HEAD WO [id number] 14:36:47 No acute intracranial abnormality. Dilated ventricles [...] reviewed this study and agree with the abovereport.[facility] CenterURINALYSIS2021-03-01 14:28:00 Test Item Value Reference Range Interpretation Comments APPEARANCE (test code = Clear Clear 0924695044) COLOR (test code = Yellow Yellow 5364275033) PH (test code = 4.8-8.0 5956046019) SP GRAVITY (test code = 1.003-1.030 5778999561) GLU U QUAL (test code = 500 mg/dL Normal A 7108023674) BLOOD (test code = Negative Negative 0553921998) KETONES (test code = 5 mg/dL Negative A 7967648909) PROTEIN (test code = Negative Negative 2887-8) UROBILIN (test code = Normal Normal 1493333188) BILIRUBIN (test code = Negative Negative 1394440513) NITRITE (test code = Negative Negative 6264560916) LEUK RYAN (test code = Negative Negative 2128198187) RBC/HPF (test code = See_Comment [Autom ated message] 1575395411) The system [employer] generated this result transmit ronan reference range : 0 - 3 HPF. The refe rence range was not u sed to interpret th is result as normal/abnormal . WBC/HPF (test code = See_Comment [Autom ated message] 8907217441) The system [employer] generated this result transmit ronan reference range : 0 - 5 HPF. The refe rence range was not u sed to interpret th is result as normal/abnormal . BACTERIA (test code = Negative Negative 7336883521) MUCOUS (test code = Slight Negative LPF A 6636337699) SQ EPITH (test code = HPF 0644045096) Lab Interpretation (test Abnormal code = 70084-1) [facility] CenterCOVID-19 (ID NOW RAPID TESTING)2020-12-11 13:10:00 Test Item Value Reference Range Interpretation Comments SARS-CoV-2 Rapid ID NOW Not Detected Not Detected (test code = 31124-0) JAMES (test code = JAMES) ID NOW COVID-19 Assay is an isothermal nucleic acid amplification test intended for the qualitative detection of nucleic acid from SARS-CoV-2 viral RNA in nasopharyngeal (OPERATIONS RECRUITER) specimens. It is used under Emergency Use [...] indicated. Lab Interpretation Normal (test code = 49641-9) [facility]. METABOLIC PANEL (10985)2020-12-11 12:29:00 Test Item Value Reference Range Interpretation Comments NA (test code = 136 mmol/L 135-145 0809630896) K (test code = 3.5 mmol/L 3.5-5.0 5413523577) CL (test code = 95 mmol/L 98-108 L 7204839456) CO2 TOTAL (test code = 35 mmol/L 23-31 H 6563926305) AGAP (test code = 2-16 4737290663) BUN (test code = 9 mg/dL 7-23 0681182253) GLUCOSE (test code = 329 mg/dL 70-110 H 9868262794) CREATININE (test code = 0.72 mg/dL 0.60-1.25 3416125145) TOTAL BILI (test code = 0.6 mg/dL 0.1-1.5 0869611449) CALCIUM (test code = 9.0 mg/dL 8.6-10.6 1787263301) T PROTEIN (test code = 6.8 g/dL 6.3-8.2 8637120084) ALBUMIN (test code = 3.8 g/dL 3.5-5.0 0232117504) ALK PHOS (test code = 288 U/L 34-122 H 8743451812) ALTv (test code = 46 U/L 5-50 1742-6) AST(SGOT) (test code = 38 U/L 13-40 3181811537) eGFR Calculation mL/min/1.73m2 (Non-) (test code = 0173218195) eGFR Calculation mL/min/1.73m2 () (test code = 8986434292) JAMES (test code = JAMES) Association of [...] tests). Lab Interpretation Abnormal (test code = 38050-7) [facility] CenterLactic Acid Whole [id number] 12:23:00 Test Item Value Reference Range Interpretation Comments LACTIC ACID (test code = 2.09 mmol/L 0.50-2.20 6004130087) Lab Interpretation (test code = Normal 33303-1) [facility] WITH [id number] 12:17:00 Test Item Value Reference Range Interpretation Comments WBC (test code = See_Comment H [Automated 8987-2) message] The sy stem which generated this [...] RDW-SD (test code = 44.9 fL 38.5-51.6 73714-3) RDW-CV (test code = 15.9 % 12.1-15.4 H 788-0) PLT (test code = See_Comment H [Automated 777-3) message] The sy stem which generated this result transmitted reference range : 150 - 328 10*3/ ?L. The reference r torito was not used to interpret this result as normal/abnormal . MPV (test code = 8.3 fL 9.8-13.0 L 10668-1) NRBC/100 WBC (test See_Comment [Automat ed code = 8742372075) message] The system which generated this result transmitted reference range : 0.0 - 10.0 /100 WBCs. The refer ence range was not u sed to interpret th is result as normal/abnormal . NRBC x10^3 (test code <0.01 See_Comment [Auto mated = 4166908831) message] The s ystem which generated this result transmitted reference range : 10*3/?L. The reference range was not used to interpret this result as normal/abnormal . GRAN MAT (NEUT) % 77.9 % (test code = 770-8) IMM GRAN % (test code 0.50 % = 2454567853) LYMPH % (test code = 12.2 % 736-9) MONO % (test code = 5.2 % 5905-5) EOS % (test code = 3.7 % 713-8) BASO % (test code = 0.5 % 706-2) GRAN MAT x10^3(ANC) 9.57 10*3/uL 1.99-6.95 H (test code = 2478052538) IMM GRAN x10^3 (test 0.06 10*3/uL 0.00-0.06 code = 6411554365) LYMPH x10^3 (test code 1.50 10*3/uL 1.09-3.23 = 731-0) MONO x10^3 (test code 0.64 10*3/uL 0.36-1.02 = 742-7) EOS x10^3 (test code = 0.46 10*3/uL 0.06-0.53 711-2) BASO x10^3 (test code 0.06 10*3/uL 0.01-0.09 = 704-7) Lab Interpretation Abnormal (test code = 48011-0) [facility] CenterLAB ONLY COVID BYXFCQIILFRMRC9542-39-21 18:43:00COVID DMT InterpretationInterpretation/Recommendations: Molecular NAAT Test Results [...] a nasopharyngeal sample, there is approximately a knw-sp-eafoq chance that the patient was infected and [...] data pooled from the [facility] medical recordincluding both current and prior COVID-19 related testing results for the following tests offered atour institution:A. Tests for the Identification of SARS-CoV-2 RNA:SARS-CoV-2 PCR assays including Augusta Aptima, Augusta Fusion, Barrett RealTime, and Twistle Xpert Xpress. SARS-CoV-2 Rapid ID NOW by the ID NOW assay. ? B. Tests for the Identification of SARS-CoV-2 Antibodies: Chemiluminescent immunoassays including Access SARS-CoV-2 IgM (DXI 600), WeVideo.ItS Vgam-VOKG-BrJ-2 IgG (Vitros 5600 and Vitros 3600), and Barrett SARS-CoV-2 IgG (MAMMALOGIST I System). These interpretation comments assume that only the above testing was utilized and that the approved acceptable specimen type(s) were used for a given test. These interpretations are autopopulated into Leftronic based on computerized algorithms matching an interpretation [...] [facility]'s Rapid ID NOW testing platform [...] pathogen panel may be beneficialin this setting. [facility] LABORATORY SERVICESCOVID GryfaxoFTHP-MqU-1 Rapid ID NOW (no units) ? ? Date ? Value ? 08/21/2020 ? Not Detected ? [facility] SERVICESUn[facility]2020-08-23 18:25:00 Test Item Value Reference Range Interpretation Comments POCT GLU (test code = 1634970188) 297 mg/dL 70-110 H Lab Interpretation (test code = Abnormal 14330-2) [facility] GLUCOSE (AUTOMATED)2020-08-23 14:25:00 Test Item Value Reference Range Interpretation Comments POCT GLU (test code = 3412248108) 181 mg/dL 70-110 H Lab Interpretation (test code = Abnormal 82702-3) [facility] Metabolic Panel (NA, K, CL, CO2, GLUCOSE, BUN, CREATININE, CA)2020-08-23 11:45:00 Test Item Value Reference Range Interpretation Comments NA (test code = 132 mmol/L 135-145 L 4400851006) K (test code = 4.0 mmol/L 3.5-5 0408669994) CL (test code = 96 mmol/L 98-108 L 5900105477) CO2 TOTAL (test code = 33 mmol/L 23-31 H 5333094251) AGAP (test code = 2-16 0368278323) BUN (test code = 9 mg/dL 7-23 1408711661) GLUCOSE (test code = 176 mg/dL 70-110 H 2143186430) CREATININE (test code = 0.66 mg/dL 0.6-1.25 6006529375) CALCIUM (test code = 8.5 mg/dL 8.6-10.6 L 8967347945) eGFR Calculation mL/min/1.73m2 (Non-) (test code = 1044894547) eGFR Calculation mL/min/1.73m2 () (test code = 0989233656) JAMES (test code = JAMES) Association of [...] tests). Lab Interpretation Abnormal (test code = 13502-0) [facility] CenterMagnesium Qsdtq6037-37-93 11:45:00 Test Item Value Reference Range Interpretation Comments MAGNESIUM (test code = 8781051858) 2.0 mg/dL 1.7-2.4 Lab Interpretation (test code = Normal 33156-2) [facility] with Nkfrtzkgipci6835-65-65 11:38:00 Test Item Value Reference Range Interpretation Comments WBC (test code = See_Comment [Automated 1185-2) message] The sy stem which generated this result transmitted reference range : 4.20 - 10.70 10*3/?L. The reference range was not used to interpret this result as normal/abnormal . RBC (test code = See_Comment [Automated 693-3) message] The sy stem which generated this [...] RDW-SD (test code = 41.8 fL 38.5-51.6 03160-2) RDW-CV (test code = 14.3 % 12.1-15.4 788-0) PLT (test code = See_Comment H [Automated 777-3) message] The sy stem which generated this result transmitted reference range : 150 - 328 10*3/ ?L. The reference r torito was not used to interpret this result as normal/abnormal . MPV (test code = 8.0 fL 9.8-13 L 57216-3) NRBC/100 WBC (test See_Comment [Automat ed code = 6661994233) message] The system which generated this result transmitted reference range : 0.0 - 10.0 /100 WBCs. The refer ence range was not u sed to interpret th is result as normal/abnormal . NRBC x10^3 (test code <0.01 See_Comment [Auto mated = 7054381425) message] The s ystem which generated this result transmitted reference range : 10*3/?L. The reference range was not used to interpret this result as normal/abnormal . GRAN MAT (NEUT) % 61.5 % (test code = 770-8) IMM GRAN % (test code 2.00 % = 4372138862) LYMPH % (test code = 25.5 % 736-9) MONO % (test code = 6.3 % 5905-5) EOS % (test code = 3.7 % 713-8) BASO % (test code = 1.0 % 706-2) GRAN MAT x10^3(ANC) 5.29 10*3/uL 1.99-6.95 (test code = 6472019705) IMM GRAN x10^3 (test 0.17 10*3/uL 0-0.06 H code = 2603979412) LYMPH x10^3 (test code 2.19 10*3/uL 1.09-3.23 = 731-0) MONO x10^3 (test code 0.54 10*3/uL 0.36-1.02 = 742-7) EOS x10^3 (test code = 0.32 10*3/uL 0.06-0.53 711-2) BASO x10^3 (test code 0.09 10*3/uL 0.01-0.09 = 704-7) Lab Interpretation Abnormal (test code = 74050-8) [facility] GLUCOSE (AUTOMATED)2020-08-23 10:22:00 Test Item Value Reference Range Interpretation Comments POCT GLU (test code = 2581479871) 164 mg/dL 70-110 H Lab Interpretation (test code = Abnormal 62951-7) [facility] GLUCOSE (AUTOMATED)2020-08-23 05:56:00 Test Item Value Reference Range Interpretation Comments POCT GLU (test code = 9202656263) 242 mg/dL 70-110 H Lab Interpretation (test code = Abnormal 19636-3) [facility] GLUCOSE (AUTOMATED)2020-08-23 03:02:00 Test Item Value Reference Range Interpretation Comments POCT GLU (test code = 6889896505) 210 mg/dL 70-110 H Lab Interpretation (test code = Abnormal 14614-6) [facility] GLUCOSE (AUTOMATED)2020-08-22 23:40:00 Test Item Value Reference Range Interpretation Comments POCT GLU (test code = 9142006611) 267 mg/dL 70-110 H Lab Interpretation (test code = Abnormal 04518-7) [facility] GLUCOSE (AUTOMATED)2020-08-22 19:08:00 Test Item Value Reference Range Interpretation Comments POCT GLU (test code = 1514595837) 191 mg/dL 70-110 H Lab Interpretation (test code = Abnormal 27332-8) [facility] GLUCOSE (AUTOMATED)2020-08-22 13:50:00 Test Item Value Reference Range Interpretation Comments POCT GLU (test code = 2821379908) 174 mg/dL 70-110 H Lab Interpretation (test code = Abnormal 57753-5) [facility] CenterURINE [id number] 12:59:00 Test Item Value Reference Range Interpretation Comments URINE CULTURE (test No aerobic growth (< code = 630-4) 1000 CFU/mL) [facility] with Guffzdnmuwzo2545-07-88 11:28:00 Test Item Value Reference Range Interpretation [...] RDW-SD (test code = 42.5 fL 38.5-51.6 14391-3) RDW-CV (test code = 14.5 % 12.1-15.4 788-0) PLT (test code = See_Comment H [Automated 777-3) message] The sy stem which generated this result transmitted reference range : 150 - 328 10*3/ ?L. The reference r torito was not used to interpret this result as normal/abnormal . MPV (test code = 8.0 fL 9.8-13 L 25343-7) NRBC/100 WBC (test See_Comment [Automat ed code = 9906555083) message] The system which generated this result transmitted reference range : 0.0 - 10.0 /100 WBCs. The refer ence range was not u sed to interpret th is result as normal/abnormal . NRBC x10^3 (test code <0.01 See_Comment [Auto mated = 4591162348) message] The s ystem which generated this result transmitted reference range : 10*3/?L. The reference range was not used to interpret this result as normal/abnormal . GRAN MAT (NEUT) % 69.1 % (test code = 770-8) IMM GRAN % (test code 2.20 % = 7636929778) LYMPH % (test code = 20.9 % 736-9) MONO % (test code = 5.8 % 5905-5) EOS % (test code = 1.0 % 713-8) BASO % (test code = 1.0 % 706-2) GRAN MAT x10^3(ANC) 6.51 10*3/uL 1.99-6.95 (test code = 6181239849) IMM GRAN x10^3 (test 0.21 10*3/uL 0-0.06 H code = 3005156691) LYMPH x10^3 (test code 1.97 10*3/uL 1.09-3.23 = 731-0) MONO x10^3 (test code 0.55 10*3/uL 0.36-1.02 = 742-7) EOS x10^3 (test code = 0.09 10*3/uL 0.06-0.53 711-2) BASO x10^3 (test code 0.09 10*3/uL 0.01-0.09 = 704-7) BASO STIPPLING (test Present A code = 703-9) BANDS (test code = Increased A 1132384028) TOXIC CHANGES (test Present A code = 803-7) Lab Interpretation Abnormal (test code = 35477-1) [facility] Metabolic Panel (NA, K, CL, CO2, GLUCOSE, BUN, CREATININE, CA)2020-08-22 11:12:00 Test Item Value Reference Range Interpretation Comments NA (test code = 135 mmol/L 135-145 0095799130) K (test code = 3.6 mmol/L 3.5-5 2185483528) CL (test code = 99 mmol/L 98-108 0955816764) CO2 TOTAL (test code = 31 mmol/L 23-31 1051957968) AGAP (test code = 2-16 7521196677) BUN (test code = 9 mg/dL 7-23 9545932771) GLUCOSE (test code = 198 mg/dL 70-110 H 6442121299) CREATININE (test code = 0.72 mg/dL 0.6-1.25 5474932608) CALCIUM (test code = 8.3 mg/dL 8.6-10.6 L 4707386895) eGFR Calculation mL/min/1.73m2 (Non-) (test code = 3016589588) eGFR Calculation mL/min/1.73m2 () (test code = 3538047961) JAMES (test code = JAMES) Association of [...] tests). Lab Interpretation Abnormal (test code = 63163-5) [facility] CenterMagnesium Mipqk0175-64-50 11:12:00 Test Item Value Reference Range Interpretation Comments MAGNESIUM (test code = 0176758948) 2.0 mg/dL 1.7-2.4 Lab Interpretation (test code = Normal 59589-0) [facility] (Total Cholesterol, Triglycerides, HDL) - Xxerqyk4381-62-51 11:12:00 Test Item Value Reference Range Interpretation Comments CHOL (test code = 155 mg/dL 120-200 1662551317) HDL (test code = 42 mg/dL >40 8740980552) HDLC RATIO (test code = See_Comment [Au tomated message] 4221528951) The system [employer] generated this result transmit ronan reference range : <=5.0. The refe rence range was not u sed to interpret th is result as normal/abnormal . TRIG (test code = 186 mg/dL 30-170 H 2181454787) LDL CHOL (test code = 76 mg/dL See_Comment [Auto mated message] 01191-2) The system [employer] generated this result transmit ronan reference range : <=160. The refe rence range was not u sed to interpret th is result as normal/abnormal . VLDL (test code = 37 mg/dL 5-60 5494021795) Lab Interpretation (test Abnormal code = 27064-7) [facility] CenterHEPATIC FUNCTION PANEL (06655) (ALB,T.PRO,BILI T,BU/BC,ALT,AST,ALK PHOS)2020-08-22 11:12:00 Test Item Value Reference Range Interpretation Comments TOTAL BILI (test code = 9922572260) 0.6 mg/dL 0.1-1.1 BILI UNCON (test code = 1133341518) 0.2 mg/dL 0.1-1.1 BILI CONJ (test code = 2919845162) 0.0 mg/dL 0-0.3 T PROTEIN (test code = 9538915380) 6.0 g/dL 6.3-8.2 L ALBUMIN (test code = 9440974044) 2.8 g/dL 3.5-5 L ALK PHOS (test code = 2520708887) 222 U/L 34-122 H ALTv (test code = 1742-6) 27 U/L 5-50 AST(SGOT) (test code = 8978365109) 30 U/L 13-40 Lab Interpretation (test code = Abnormal 66972-3) [facility]2020-08-22 10:11:00 Test Item Value Reference Range Interpretation Comments POCT GLU (test code = 4125471645) 196 mg/dL 70-110 H Lab Interpretation (test code = Abnormal 21964-7) [facility] GLUCOSE (AUTOMATED)2020-08-22 07:15:00 Test Item Value Reference Range Interpretation Comments POCT GLU (test code = 6320010283) 183 mg/dL 70-110 H Lab Interpretation (test code = Abnormal 26075-7) [facility] GLUCOSE (AUTOMATED)2020-08-22 02:30:00 Test Item Value Reference Range Interpretation Comments POCT GLU (test code = 9882496244) 295 mg/dL 70-110 H Lab Interpretation (test code = Abnormal 54582-2) [facility] GLUCOSE (AUTOMATED)2020-08-21 23:46:00 Test Item Value Reference Range Interpretation Comments POCT GLU (test code = 3385998754) 258 mg/dL 70-110 H Lab Interpretation (test code = Abnormal 14745-5) [facility] CenterC-REACTIVE HNNJLCD5392-98-89 18:50:00 Test Item Value Reference Range Interpretation Comments CRP (test code = 4842571601) 15.5 mg/dL <0.8 H Lab Interpretation (test code = Abnormal 74533-1) [facility] GLUCOSE (AUTOMATED)2020-08-21 18:21:00 Test Item Value Reference Range Interpretation Comments POCT GLU (test code = 1917133752) 297 mg/dL 70-110 H Lab Interpretation (test code = Abnormal 21840-1) [facility] CenterETHANOL2020-11-09 16:24:00 Test Item Value Reference Range Interpretation Comments ALCOHOL (test code = <10 mg/dL 2921434012) JAMES (test code = Toxic Greater than or JAMES) equal to 80 mg/dL. NOTE: Whole blood values are approximately 10% to 15% lower than serum and plasma. [facility] CenterGALV/CLC ONLY - URINE DRUG (IMMUNOASSAY) - 4 ER ONBXP9329-25-73 15:36:00 Test Item Value Reference Range Interpretation Comments AMPHET (test code = Negative Negative 4222121724) Cocaine Metabolite (test Negative Negative code = 3323495793) OPIATES (test code = Presumptive Positive Negative A 2268247092) THC (test code = Negative Negative 4361234822) JAMES (test code = JAMES) Urine Drug Cutoff Ranges Amphetamine: ? 1,000 ng/mLCocaine: ? 150 ng/mLOpiates: ? 300 ng/mLCannabinoids: ?50 ng/mL The results are to be used only for medical (i.e., treatment) purposes. Unconfirmed screening results must not be used for non-medical purposes (e.g., employment testing, legal testing). Lab Interpretation (test Abnormal code = 86293-0) [facility] CenterGALV ONLY - SYPHILIS IGG/[id number] 15:04:00 Test Item Value Reference Range Interpretation Comments Syphilis IgG/IgM (test Non-reactive Non-reactive code = 15139-3) JAMES (test code = JAMES) Non-reactive - No serologic evidence of T. pallidum infection. Cannot exclude incubating or early syphilis. Submit a second specimen in 2-4 weeks if syphilis is clinically suspected. Equivocal - Further testing to follow. Reactive - Further testing to follow. Lab Interpretation (test Normal code = 31969-1) [facility]ysis[facility] 14:52:00 Test Item Value Reference Range Interpretation Comments APPEARANCE (test code = Clear Clear 4441874393) COLOR (test code = Yellow Yellow 1780203728) PH (test code = 4.8-8.0 6914998954) SP GRAVITY (test code = 1.003-1.030 7856393290) GLU U QUAL (test code = 500 mg/dL Normal A 4865229970) BLOOD (test code = Negative Negative 0834993143) KETONES (test code = 20 mg/dL Negative A 9238509013) PROTEIN (test code = Negative Negative 2887-8) UROBILIN (test code = Normal Normal 8003295525) BILIRUBIN (test code = Negative Negative 2957887088) NITRITE (test code = Negative Negative 0133276212) LEUK RYAN (test code = Negative Negative 6294455376) RBC/HPF (test code = <1 See_Comment [Autom ated message] 7951109250) The system [employer] generated this result transmit ronan reference range : 0 - 3 HPF. The refe rence range was not u sed to interpret th is result as normal/abnormal . WBC/HPF (test code = See_Comment [Autom ated message] 0789648170) The system [employer] generated this result transmit ronan reference range : 0 - 5 HPF. The refe rence range was not u sed to interpret th is result as normal/abnormal . BACTERIA (test code = Negative Negative 8661347805) MUCOUS (test code = Slight Negative LPF A 4897761568) Lab Interpretation (test Abnormal code = 98965-7) [facility] CenterACTIVATED PARTIAL THRMPLAS [id number] 13:45:00 Test Item Value Reference Range Interpretation Comments APTT Patient (test code = See_Comment [ Automated message] 3173-2) The system [employer] generated this result transmitted ref erence range: 26 - 36 Seconds. The re ference range was not u sed to interpret this result as normal/abnor mal. Lab Interpretation (test Normal code = 06315-3) [facility]PO[facility] (AUTOMATED)2020-08-21 13:45:00 Test Item Value Reference Range Interpretation Comments POCT GLU (test code = 1828015793) 246 mg/dL 70-110 H Lab Interpretation (test code = Abnormal 39937-5) [facility] CenterHIV 1/2 AG-AB WITH [id number] 12:32:00 Test Item Value Reference Range Interpretation Comments HIV Negative Negative Semi-quantitative (test code = 49850-6) JAMES (test code = Non-reactive for HIV-1 JAMES) antigen and HIV-1/HIV-2 antibodies. ?No laboratory evidence of HIV infection. ?Repeat in 2-4 weeks if acute HIV infection is suspected. [facility] CenterCBC WITH [id number] 12:18:00 Test Item Value Reference Range Interpretation Comments WBC (test code = See_Comment [Automated 7059-2) message] The sy stem which generated this result transmitted reference range : 4.20 - 10.70 10*3/?L. The reference range was not used to interpret this result as normal/abnormal . RBC (test code = See_Comment [Automated 937-5) message] The sy stem which generated this [...] RDW-SD (test code = 44.4 fL 38.5-51.6 34278-4) RDW-CV (test code = 14.5 % 12.1-15.4 788-0) PLT (test code = See_Comment H [Automated 777-3) message] The sy stem which generated this result transmitted reference range : 150 - 328 10*3/ ?L. The reference r torito was not used to interpret this result as normal/abnormal . MPV (test code = 8.5 fL 9.8-13 L 44105-0) NRBC/100 WBC (test See_Comment [Automat ed code = 7029853330) message] The system which generated this result transmitted reference range : 0.0 - 10.0 /100 WBCs. The refer ence range was not u sed to interpret th is result as normal/abnormal . NRBC x10^3 (test code <0.01 See_Comment [Auto mated = 3558956016) message] The s ystem which generated this result transmitted reference range : 10*3/?L. The reference range was not used to interpret this result as normal/abnormal . GRAN MAT (NEUT) % 90.4 % (test code = 770-8) IMM GRAN % (test code 1.30 % = 9399586199) LYMPH % (test code = 7.1 % 736-9) MONO % (test code = 0.5 % 5905-5) EOS % (test code = 0.1 % 713-8) BASO % (test code = 0.6 % 706-2) GRAN MAT x10^3(ANC) 7.74 10*3/uL 1.99-6.95 H (test code = 3356605461) IMM GRAN x10^3 (test 0.11 10*3/uL 0-0.06 H code = 6913754527) LYMPH x10^3 (test code 0.61 10*3/uL 1.09-3.23 L = 731-0) MONO x10^3 (test code 0.04 10*3/uL 0.36-1.02 L = 742-7) EOS x10^3 (test code = <0.03 0.06-0.53 L 711-2) BASO x10^3 (test code 0.05 10*3/uL 0.01-0.09 = 704-7) POLYCHROMASIA (test 2+ See_Comment [Automa ronan code = 75245-3) message] The system which generated this result transmitted reference range : 2+. The referen ce range was not u sed to interpret th is result as normal/abnormal . BANDS (test code = Increased A 6820689742) Lab Interpretation Abnormal (test code = 76487-7) [facility] CenterPROCALCITONIN2020-11-09 11:48:00 Test Item Value Reference Range Interpretation Comments Procalcitonin (test 0.36 ng/mL <0.07 H code = 3331080123) JAMES (test code = JAMES) INTERPRETATION OF [...] biotics/default.asp Lab Interpretation Abnormal (test code = 23725-4) [facility] CenterLACTATE [id number] 10:53:00 Test Item Value Reference Range Interpretation Comments LDH (test code = 3516222006) 351 U/L 300-600 Lab Interpretation (test code = Normal 22216-1) [facility] CenterSEDIMENTATION [id number] 10:07:00 Test Item Value Reference Range Interpretation Comments ESR (test code = See_Comment H [Automated message] 1126491790) The system [employer] generated this result transmitted ref erence range: 0 - 10 m m/HR. The reference r torito was not used to interpret this result as normal/abnor mal. Lab Interpretation (test Abnormal code = 31810-2) [facility] CenterPO[facility]SE (AUT[facility]ATED)2020-08-21 09:45:00 Test Item Value Reference Range Interpretation Comments POCT GLU (test code = 4329565644) 287 mg/dL 70-110 H Lab Interpretation (test code = Abnormal 99855-4) [facility] CenterGlycosylated Hemoglobin (A1C)2020-08-21 09:29:00 Test Item Value Reference Range Interpretation Comments HGB A1C (test code = 4548-4) 9.8 % 4-6 H Lab Interpretation (test code = Abnormal 77432-5) [facility] CenterCOVID-19 (ID NOW RAPID TESTING)2020-08-21 09:13:00 Test Item Value Reference Range Interpretation Comments SARS-CoV-2 Rapid ID NOW Not Detected Not Detected (test code = 65082-4) JAMES (test code = JAMES) ID NOW COVID-19 Assay is an isothermal nucleic acid amplification test intended for the qualitative detection of nucleic acid from SARS-CoV-2 viral RNA in nasopharyngeal (OPERATIONS RECRUITER) specimens. It is used under Emergency Use [...] indicated. Lab Interpretation Normal (test code = 36865-8) [facility] CenterProthrombin Time / [id number] 08:59:00 Test Item Value Reference Range Interpretation Comments PROTIME PATIENT (test See_Comment H [Auto mated message] code = 5964-2) The system [employer] generated this result transmitted ref erence range: 10.1 - 1 2.6 Seconds. The reference range was not used to int erpret this result as normal/abnormal . INR (test code = 6301-6) Nor mal INR <1.1; Warfarin Therap eutic range 2.0 to 3. 0 or 2.5 to 3.5, dep ending upon the indica tions. Lab Interpretation (test Abnormal code = 49866-8) [facility] CenteraPTT2020-11-09 08:59:00 Test Item Value Reference Range Interpretation Comments APTT Patient (test code = See_Comment [ Automated message] 3173-2) The system [employer] generated this result transmitted ref erence range: 26 - 36 Seconds. The re ference range was not u sed to interpret this result as normal/abnor mal. Lab Interpretation (test Normal code = 10806-6) [facility]OL[facility] (NA, K, CL, CO2, GLUCOSE, BUN, CREATININE, CA)2020-08-21 08:52:00 Test Item Value Reference Range Interpretation Comments NA (test code = 136 mmol/L 135-145 3540335944) K (test code = 4.3 mmol/L 3.5-5 9897193146) CL (test code = 104 mmol/L 98-108 3990163642) CO2 TOTAL (test code = 24 mmol/L 23-31 5741909346) AGAP (test code = 2-16 2360491199) BUN (test code = 8 mg/dL 7-23 6842336464) GLUCOSE (test code = 308 mg/dL 70-110 H 2832474963) CREATININE (test code = 0.72 mg/dL 0.6-1.25 8293117251) CALCIUM (test code = 7.8 mg/dL 8.6-10.6 L 9276437778) eGFR Calculation mL/min/1.73m2 (Non-) (test code = 1963788589) eGFR Calculation mL/min/1.73m2 () (test code = 0964922908) JAMES (test code = JAMES) Association of [...] tests). Lab Interpretation Abnormal (test code = 23659-9) [facility] CenterHEPATIC FUNCTION PANEL (88799) (ALB,T.PRO,BILI T,BU/BC,ALT,AST,ALK PHOS)2020-08-21 08:52:00 Test Item Value Reference Range Interpretation Comments TOTAL BILI (test code = 4418592210) 0.8 mg/dL 0.1-1.1 BILI UNCON (test code = 2588765320) 0.3 mg/dL 0.1-1.1 BILI CONJ (test code = 2515393958) 0.0 mg/dL 0-0.3 T PROTEIN (test code = 1845802787) 5.7 g/dL 6.3-8.2 L ALBUMIN (test code = 9186411864) 2.7 g/dL 3.5-5 L ALK PHOS (test code = 2842928804) 245 U/L 34-122 H ALTv (test code = 1742-6) 37 U/L 5-50 AST(SGOT) (test code = 4331633923) 43 U/L 13-40 H Lab Interpretation (test code = Abnormal 24145-6) [facility]
--- NOTE | 2022-12-02 10:51 | RAD REPORT ---
EXAM DESCRIPTION: USExtremity Venous Uni Ltd12/02/2022 10:37 am CLINICAL HISTORY: Right leg pain COMPARISON: October 2022 FINDINGS: Right common femoral, superficial femoral, greater saphenous, popliteal and right posterio r tibial veins are compressible and demonstrate augmentation. Doppler demonstrates good flow. Grayscale, color and spectral analysis performed on all vessels IMPRESSION: No evidence of deep venous thrombosis involving the right lower extremity.
[2022-12-02] MEDS ORDERED: DIAZEPAM 5 MG TABLET ONE (11:06)
[2022-12-02] MEDS ORDERED: HYDROMORPHONE HCL 1 MG/ML INJ ONE (11:06)
[2022-12-02] MEDS ORDERED: KETOROLAC 30 MG/ML INJ ONE (11:06)
[2022-12-02] MEDS ORDERED: NA CHLORIDE 0.9% 1,000 ML ONE (11:07)
[2022-12-02] MEDS ORDERED: ONDANSETRON 4 MG/2 ML VIAL ONE (11:07)
[2022-12-02 11:28] LABS: Absolute Lymphocytes (CBC) 1.2 K/uL (0.7-4.9); Hematocrit 33.4 % (39.6-49.0); Lymphocytes % 15.4 % (15.3-44.8); MCV 83.9 fL (80-100); MPV 6.4 fL (7.6-11.3); RBC Red Blood Cell Count 3.97 M/uL (4.33-5.43)
[2022-12-02 11:52] LABS: Albumin 2.8 g/dL (3.4-5.0); Bilirubin Total 0.3 mg/dL (0.2-1.0); Potassium 4.3 mmol/L (3.5-5.1); Protein, Total 7.2 g/dL (6.4-8.2)
--- NOTE | 2022-12-02 12:43 | RAD REPORT ---
EXAM DESCRIPTION: RAD - Pelvis - 12/02/2022 12:32 pm CLINICAL HISTORY: PAIN COMPARISON: Pelvis dated 12/03/2021 FINDINGS: Severe osteoarthritis is present in both hips. Vague area of lucency and sclerosis is seen as well in the femoral heads which could indicate AVN, greater on the right. No acute fracture or di slocation.
--- NOTE | 2022-12-02 12:44 | RAD REPORT ---
EXAM DESCRIPTION: RAD - Chest Single View - 12/02/2022 12:31 pm CLINICAL HISTORY: COUGH Chest pain. COMPARISON: Chest Single View dated 10/22/2022; Chest Single View dated 09/29/2022; Chest Single View dated 06/07/2022; Chest Single View dated 04/28/2022 FINDINGS: Portable technique limits examination quality. Left lung base is hazy probably related to patient positioning. No gross infiltrate suspected. The he art is normal in size. No displaced fractures.Aortic atherosclerosis. IMPRESSION: No acute intrathoracic process suspected.
[2022-12-02 14:57] LABS: Urine Blood Negative (Negative); Urine Glucose Negative (Negative); Urine Protein Trace (Negative); Urine Specific Gravity 1.025 (1.005-1.030)
--- NOTE | 2022-12-02 15:37 | EDPHYS ---
Physician Documentation [facility] Name: Kiel Ngo Age: 72 yrs Sex: Male : 1950 Arrival Date: 12/02/2022 Time: 09:44 Bed 19 Private MD: ED Physician Stu Banerjee HPI: 12/02 11:48 This 72 yrs old Male presents to ER via EMS with complaints of Hip Pain. chetan 11:48 The patient or guardian reports decreased range of motion, pain. that occurred. chetan Historical: - Allergies: 09:45 Demerol; ss 09:45 metformin; ss 09:45 Morphine; ss - PMHx: 09:45 Atrial fibrillation; chronic back pain; Chronic right leg pain; neuropathy; ss - PSHx: 09:45 back sx; PANCREAS SX; R. Ankle SX; ss - Immunization history:: Adult Immunizations up to date. - Social history:: Smoking status: Patient denies any tobacco usage or history of. ROS: 11:50 Constitutional: Negative for fever, chills, and weight loss, Eyes: Negative for injury, chetan pain, redness, and discharge, ENT: Negative for injury, pain, and discharge, Neck: Negative for injury, pain, and swelling, Respiratory: Negative for shortness of breath, cough, wheezing, and pleuritic chest pain, Abdomen/GI: Negative for abdominal pain, nausea, vomiting, diarrhea, and constipation, Back: Negative for injury and pain, : Negative for injury, bleeding, discharge, and swelling, Skin: Negative for injury, rash, and discoloration, Neuro: Negative for headache, weakness, numbness, tingling, and seizure, Psych: Negative for depression, anxiety, suicide ideation, homicidal ideation, and hallucinations, Allergy/Immunology: Negative for hives, rash, and allergies, Endocrine: Negative for neck swelling, polydipsia, polyuria, polyphagia, and marked weight changes, Hematologic/Lymphatic: Negative for swollen nodes, abnormal bleeding, and unusual bruising. 11:50 MS/extremity: Positive for decreased range of motion, pain, of the right hip and right upper thigh. Exam: 11:50 Constitutional: This is a well developed, well nourished patient who is awake, alert, chetan and in no acute distress. Head/Face: Normocephalic, atraumatic. Eyes: Pupils equal round and reactive to light, extra-ocular motions intact. Lids and lashes normal. Conjunctiva and sclera are non-icteric and not injected. Cornea within normal limits. Periorbital areas with no swelling, redness, or edema. ENT: Nares patent. No nasal discharge, no septal abnormalities noted. Tympanic membranes are normal and external auditory canals are clear. Oropharynx with no redness, swelling, or masses, exudates, or evidence of obstruction, uvula midline. Mucous membranes moist. Neck: Trachea midline, no thyromegaly or masses palpated, and no cervical lymphadenopathy. Supple, full range of motion without nuchal rigidity, or vertebral point tenderness. No Meningismus. Chest/axilla: Normal chest wall appearance and motion. Nontender with no deformity. No lesions are appreciated. Respiratory: Lungs have equal breath sounds bilaterally, clear to auscultation and percussion. No rales, rhonchi or wheezes noted. No increased work of breathing, no retractions or nasal flaring. Abdomen/GI: Soft, non-tender, with normal bowel sounds. No distension or tympany. No guarding or rebound. No evidence of tenderness throughout. Back: No spinal tenderness. No costovertebral tenderness. Full range of motion. Male : Normal genitalia with no discharge or lesions. Skin: Warm, dry with normal turgor. Normal color with no rashes, no lesions, and no evidence of cellulitis. Neuro: Awake and alert, GCS 15, oriented to person, place, time, and situation. Cranial nerves II-XII grossly intact. Motor strength 5/5 in all extremities. Sensory grossly intact. Cerebellar exam normal. Normal gait. Psych: Awake, alert, with orientation to person, place and time. Behavior, mood, and affect are within normal limits. 11:50 ECG was reviewed by the Attending Physician. 14:22 ECG was reviewed by the Attending Physician. chetan Vital Signs: 09:44 BP 154 / 85; Pulse 133; Resp 16; Temp 98.2(TE); Pulse Ox 97% on R/A; ss 10:00 BP 132 / 81; Pulse 125; Resp 18; Pulse Ox 98% on R/A; ko1 12:38 BP 141 / 79; Pulse 115; Resp 16; Pulse Ox 98% ; ko1 14:58 BP 136 / 86; Pulse 88; Resp 18; Pulse Ox 100% on R/A; mb9 15:36 BP 143 / 77; Pulse 79; Resp 18; Pulse Ox 100% ; mb9 MDM: 09:46 Patient medically screened. [facility] 13:47 Differential diagnosis: hip fracture, bursitis, arthritis. Data reviewed: vital signs, [facility] nurses notes, lab test result(s), EKG, radiologic studies, doppler, plain films, ultrasound. Consideration of Admission/Observation Escalation of care including admission/observation considered. I considered the following discharge prescriptions or medication management in the emergency department Medications were administered in the Emergency Department. See MAR. Independent interpretation of the following test(s) in the Emergency Department conveyor monitor: rate is 115 beats/min, Rhythm is regular, sinus tachycardia. Test considered but Not performed: CT: chest pe. Care significantly affected by the following chronic conditions: Hypertension, a fib, chronic pain. 12/02 09:48 Order name: CBC with Diff [facility] 12/02 09:48 Order name: Comprehensive Metabolic Panel [facility] 12/02 11:31 Order name: CBC with Automated Diff; Complete Time: 11:38 EDIN 12/02 11:47 Order name: Basic Metabolic Panel [facility] 12/02 11:47 Order name: LFT's [facility] 12/02 11:47 Order name: Magnesium [facility] 12/02 09:48 Order name: US Extremity Venous Unilateral Ltd [facility] 12/02 10:51 Order name: US; Complete Time: 11:38 EDIN 12/02 11:47 Order name: NT PRO-BNP [facility] 12/02 11:47 Order name: PT-INR [facility] 12/02 11:47 Order name: Troponin HS [facility] 12/02 11:52 Order name: Comprehensive Metabolic Panel; Complete Time: 12:53 EDIN 12/02 14:57 Order name: Urine Dipstick-Ancillary; Complete Time: 14:57 EDIN 12/02 15:45 Order name: Protime (+INR); Complete Time: 15:51 EDIN 12/02 09:48 Order name: Urine Dipstick-Ancillary (obtain specimen); Complete Time: 14:58 [facility] 12/02 09:48 Order name: EKG; Complete Time: 09:49 [facility] 12/02 09:48 Order name: EKG - Nurse/Tech; Complete Time: 11:28 [facility] 12/02 11:41 Order name: Pelvis XRAY [facility] 12/02 11:47 Order name: XRAY Chest (1 view) [facility] 12/02 11:47 Order name: Echo w/ Doppler [facility] 12/02 12:44 Order name: RAD; Complete Time: 12:53 EDMS 12/02 12:45 Order name: RAD; Complete Time: 12:53 EDMS 12/02 13:40 Order name: EKG; Complete Time: 13:41 [facility] 12/02 11:47 Order name: Cardiac monitoring; Complete Time: 11:50 [facility] 12/02 11:47 Order name: IV Saline Lock; Complete Time: 11:49 [facility] 12/02 11:47 Order name: Labs collected and sent; Complete Time: 11:49 [facility] 12/02 11:47 Order name: O2 Per Protocol; Complete Time: 11:49 [facility] 12/02 11:47 Order name: O2 Sat Monitoring; Complete Time: 11:51 [facility] 12/02 13:40 Order name: EKG - Nurse/Tech; Complete Time: 14:21 [facility] EC:50 Rate is 124 beats/min. Rhythm is regular. QRS [place] is Normal. MS interval is normal. [facility] QRS interval is normal. QT interval is normal. No Q waves. T waves are Normal. No ST changes noted. Clinical impression: Sinus tachycardia. Interpreted by me. 14:22 Rate is 110 beats/min. Rhythm is regular. QRS [place] is Normal. MS interval is normal. [facility] QRS interval is normal. QT interval is normal. No Q waves. T waves are Normal. No ST changes noted. Clinical impression: Sinus tachycardia. Interpreted by me. Reviewed by me. Administered Medications: 11:10 Drug: Valium (diazepam) 10 mg Route: PO; ko1 11:11 Drug: NS 0.9% 500 ml Route: IV; Rate: bolus; Site: left antecubital; ko1 11:11 Drug: Ketorolac 15 mg Route: IVP; Site: left antecubital; ko1 11:11 Drug: Dilaudid (HYDROmorphone) 1 mg Route: IVP; Site: left antecubital; ko1 11:11 Drug: Zofran (Ondansetron) 4 mg Route: IVP; Site: left antecubital; ko1 12:06 Drug: NS 0.9% 1000 ml Route: IV; Rate: 125 ml/hr; Site: left antecubital; ko1 14:57 Drug: Lopressor (metoprolol TARTRATE) 50 mg Route: PO; mb9 15:36 Follow up: Response: No adverse reaction mb9 Disposition Summary: 12/02/22 15:35 Discharge Ordered Location: Home chetan Problem: new chetan Symptoms: have improved chetan Condition: Stable chetan Diagnosis - Paroxysmal tachycardia, unspecified chetan - Pain in right hip chetan - Chronic pain, not elsewhere classified chetan Followup: chetan - With: Private Physician - When: 2 - 3 days - Reason: Recheck today's complaints, Continuance of care, Re-evaluation by your physician Followup: chetan - With: - When: 2 - 3 days - Reason: Recheck today's complaints, Continuance of care, Re-evaluation by your physician Discharge Instructions: - Discharge Summary Sheet chetan - Joint Pain chetan - Arthritis chetan - Musculoskeletal Pain chetan - Hip Pain chetan - Arthritis, Xkrb-mz-Ygnm chetan - Joint Pain, Bfab-vs-Cpbc chetan - Sinus Tachycardia chetan Forms: - Medication Reconciliation Form chetan - Thank You Letter chetan - Antibiotic Education chetan - Prescription Opioid Use [facility] Prescriptions: - Toprol XL 50 mg Oral Tablet - take 1 tablet by ORAL route once daily; 20 tablet; Refills: 0, Product chetan Selection Permitted - gabapentin 300 mg Oral capsule - take 1 capsule by ORAL route 2 times per day; 30 capsule; Refills: 0, Product snw Selection Permitted Signatures: Dispatcher [employer] Stu Vale MD MD cha Smirch, Shelby RN Uyen Hahn RN RN ko1 Emelia Beard RN RN mb9
--- NOTE | 2022-12-02 15:37 | ER ---
Nurse's Notes [facility] Name: Kiel Ngo Age: 72 yrs Sex: Male : 1950 Arrival Date: 12/02/2022 Time: 09:44 Bed 19 Private MD: Diagnosis: Paroxysmal tachycardia, unspecified;Pain in right hip;Chronic pain, not elsewhere classified Presentation: 12/02 09:44 Chief complaint: Patient states: chronic hip pain. Coronavirus screen: Client denies ss travel out of the [place] in the last 14 days. Ebola Screen: Patient denies exposure to infectious person. Patient denies travel to an Ebola-affected area in the 21 days before illness onset. Initial Sepsis Screen: Does the patient meet any 2 criteria? No. Patient's initial sepsis screen is negative. Does the patient have a suspected source of infection? No. Patient's initial sepsis screen is negative. Risk Assessment: Do you want to hurt yourself or someone else? Patient reports no desire to harm self or others. Onset of symptoms is unknown. 09:44 Method Of Arrival: EMS: [facility] 09:44 Acuity: JOZEF 3 ss Historical: - Allergies: 09:45 Demerol; ss 09:45 metformin; ss 09:45 Morphine; ss - PMHx: 09:45 Atrial fibrillation; chronic back pain; Chronic right leg pain; neuropathy; ss - PSHx: 09:45 back sx; PANCREAS SX; R. Ankle SX; ss - Immunization history:: Adult Immunizations up to date. - Social history:: Smoking status: Patient denies any tobacco usage or history of. Screenin:00 [facility] ED Fall Risk Assessment (Adult) History of falling in the last 3 months, ko1 including since admission No falls in past 3 months (0 pts) Confusion or Disorientation No (0 pts) Intoxicated or Sedated No (0 pts) Impaired Gait Yes (1 pt) Mobility Assist Device Used Yes (1 pt) Altered Elimination Yes (1 pt) Score/Fall Risk Level 3 or more points = High Risk Oriented to surroundings, Maintained a safe environment, Educated pt \T\ family on fall prevention, incl call for assistance when getting out of bed, Assessed \T\ reinforced patient's understanding of fall precautions, Provided non-skid footwear, Hourly rounding (assess needs \T\ fall precautionary measures) done, Used ambulatory aids as needed (educated on \T\ assisted with), Used gait belt as appropriate Implemented a Fall Risk Plan of Care, Apply high fall risk patient identification: yellow non skid footwear/ fall signage, Remained w/in arm's length of patient and in sight while toileting, Offered frequent toileting (1:1 observation), Remained with patient while ambulating, Utilized family, sitter, or virtual lumber kiln operator as indicated. Abuse screen: Denies threats or abuse. Denies injuries from another. Nutritional screening: No deficits noted. Tuberculosis screening: No symptoms or risk factors identified. Assessment: 10:00 General: Appears in no apparent distress. comfortable, Behavior is calm, cooperative, ko1 appropriate for age. Pain: Complains of pain in right leg and right upper thigh and right hip. Neuro: No deficits noted. Cardiovascular: Rhythm is sinus tachycardia. Respiratory: No deficits noted. GI: No deficits noted. : No deficits noted. EENT: No deficits noted. Derm: No deficits noted. Musculoskeletal: Reports pain in right leg and right upper thigh and right hip. 13:00 Reassessment: No changes from previously documented assessment. Patient and/or family mb9 updated on plan of care and expected duration. Pain level reassessed. Patient is alert, oriented x 3, equal unlabored respirations, skin warm/dry/pink. Patient states feeling better. Patient states symptoms have improved. 14:57 Reassessment: No changes from previously documented assessment. Patient and/or family mb9 updated on plan of care and expected duration. Pain level reassessed. Patient is alert, oriented x 3, equal unlabored respirations, skin warm/dry/pink. Patient denies pain at this time. Patient states feeling better. Patient states symptoms have improved. Vital Signs: 09:44 BP 154 / 85; Pulse 133; Resp 16; Temp 98.2(TE); Pulse Ox 97% on R/A; ss 10:00 BP 132 / 81; Pulse 125; Resp 18; Pulse Ox 98% on R/A; ko1 12:38 BP 141 / 79; Pulse 115; Resp 16; Pulse Ox 98% ; ko1 14:58 BP 136 / 86; Pulse 88; Resp 18; Pulse Ox 100% on R/A; mb9 15:36 BP 143 / 77; Pulse 79; Resp 18; Pulse Ox 100% ; mb9 ED Course: 09:44 Patient arrived in ED. ss 09:45 Triage completed. ss 09:45 Arm band placed on right wrist. ss 09:46 Stu Banerjee MD is Attending Physician. chetan 10:00 Patient has correct armband on for positive identification. Placed in gown. Bed in low ko1 position. Call light in reach. Side rails up X2. Client placed on continuous cardiac and pulse oximetry monitoring. NIBP monitoring applied. athletic monitor on. 10:44 Uyen Donahue, RN is Primary Nurse. ko1 11:00 Inserted saline lock: 22 gauge in left antecubital area, using aseptic technique. Blood ko1 collected. 11:01 Comprehensive Metabolic Panel Sent. ko1 11:01 CBC with Diff Sent. ko1 11:49 Troponin HS Sent. ko1 11:49 NT PRO-BNP Sent. ko1 11:49 Magnesium Sent. ko1 11:49 LFT's Sent. ko1 11:49 Basic Metabolic Panel Sent. ko1 11:50 PT-INR Sent. ko1 15:35 Óscar Holman MD is Referral Physician. chetan 15:56 No provider procedures requiring assistance completed. IV discontinued, intact, mb9 bleeding controlled, No redness/swelling at site. Pressure dressing applied. Administered Medications: 11:10 Drug: Valium (diazepam) 10 mg Route: PO; ko1 11:11 Drug: NS 0.9% 500 ml Route: IV; Rate: bolus; Site: left antecubital; ko1 11:11 Drug: Ketorolac 15 mg Route: IVP; Site: left antecubital; ko1 11:11 Drug: Dilaudid (HYDROmorphone) 1 mg Route: IVP; Site: left antecubital; ko1 11:11 Drug: Zofran (Ondansetron) 4 mg Route: IVP; Site: left antecubital; ko1 12:06 Drug: NS 0.9% 1000 ml Route: IV; Rate: 125 ml/hr; Site: left antecubital; ko1 14:57 Drug: Lopressor (metoprolol TARTRATE) 50 mg Route: PO; mb9 15:36 Follow up: Response: No adverse reaction mb9 Outcome: 15:35 Discharge ordered by . chetan 15:56 Discharged to home via ambulance. mb9 15:56 Condition: stable 15:56 Discharge instructions given to patient, Instructed on discharge instructions, follow up and referral plans. Demonstrated understanding of instructions, follow-up care, medications, Prescriptions given X 2. 15:56 Patient left the ED. mb9 Signatures: Stu Banerjee MD MD cha Smirch, Shelby, RN Uyen Hahn RN RN ko1 Emelia Beard RN RN mb9
[2022-12-02 15:44] LABS: Protime INR 1.1
[2022-12-02 16:02] LABS: Albumin 2.4 g/dL (3.4-5.0); Bilirubin Direct 0.1 mg/dL (0-0.2); Bilirubin Total 0.3 mg/dL (0.2-1.0); Magnesium 2.4 mg/dL (1.6-2.4); Potassium 4.5 mmol/L (3.5-5.1); Protein, Total 6.5 g/dL (6.4-8.2); Troponin High Sensitivity 10.3 pg/mL (<58.9)
--- NOTE | 2022-12-02 16:37 | EKG ---
Test Date: 2022-12-02 Test Time: 11:26:19 Histotechnologist: ADELA MEASUREMENT RESULTS: Intervals: Rate: 124 LA: 148 QRSD: 76 QT: 318 QTc: 456 [place]: P: 37 LA: 148 QRS: 11 T: 33 INTERPRETIVE STATEMENTS: Sinus tachycardia Possible Left atrial enlargement Borderline ECG Compared to ECG 10/22/2022 12:23:33 No significant changes Electronically Signed On 12-02-22 16:36:10 [facility] by Óscar Holman
[2022-12-02 16:53] VITALS: TEMP 98.2
[2022-12-02 17:20] VITALS: O2SAT 100
[2022-12-02 17:21] VITALS: BP 143/77
--- NOTE | 2022-12-03 07:01 | ECHO ---
HEIGHT: ft in WEIGHT: lb oz DATE OF STUDY: 12/02/[address]: Stu Banerjee MD 2-DIMENSIONAL: YES M.MODE: YES DOPPLER: YES COLOR FLOW: YES TDS: YES PORTABLE: YES DEFINITY: NO BUBBLE STUDY: NO DIAGNOSIS: EFFUSION CARDIAC HISTORY: CATHERIZATION: NO SURGERY: NO PROSTHETIC VALVE: NO PACEMAKER: NO MEASUREMENTS (cm) DIASTOLIC (NORMALS) SYSTOLIC (NORMALS) IVSd 1.0 (0.6-1.2) LA Diam 2.5 (1.9-4.0) LVEF 55-60% LVIDd 5.1 (3.5-5.7) LVIDs 3.8 (2.0-3.5) %FS 25% LVPWd 1.1 (0.6-1.2) Ao Diam 2.8 (2.0-3.7) 2 DIMENSIONAL ASSESSMENT: RIGHT ATRIUM: NORMAL LEFT ATRIUM: NORMAL RIGHT VENTRICLE: NORMAL LEFT VENTRICLE: NORMAL TRICUSPID VALVE: TRACE TR MITRAL VALVE: TRACE MR PULMONIC VALVE: NORMAL AORTIC VALVE: NORMAL PERICARDIAL EFFUSION: TRACE AORTIC ROOT: NORMAL LEFT VENTRICULAR WALL MOTION: NORMAL DOPPLER/COLOR FLOW: TRACE TRICUSPID AND MITRAL REGURGITATION. COMMENTS: 1. NORMAL LEFT VENTRICULAR EJECTION FRACTION 55-60%. 2. NORMAL WALL MOTION. 3. TRACE PERICARDIAL EFFUSION (PROMENT PERICARDIA FAT) 4. POOR WINDOWS. TECHNOLOGIST: Yuni PARRISH
--- NOTE | 2022-12-03 16:19 | EKG ---
Test Date: 2022-12-02 Test Time: 13:57:31 Weave Room Supervisor: EMILIANO MEASUREMENT RESULTS: Intervals: Rate: 110 WA: 152 QRSD: 74 QT: 364 QTc: 492 [place]: P: 47 WA: 152 QRS: 17 T: 37 INTERPRETIVE STATEMENTS: Sinus tachycardia Possible Left atrial enlargement Low voltage QRS Borderline ECG Compared to ECG 12/02/2022 11:26:19 Low QRS voltage now present Electronically Signed On 12-03-22 16:18:14 HEAD [facility] by Óscar Holman
== END 2022-12-02 15:56 | disposition home or self-care (01) ==
LOC: ER 09:37
DX: G89.29 Other chronic pain (principal); I47.9 Paroxysmal tachycardia, unspecified; Z88.5 Allergy status to narcotic agent; Z88.8 Allergy status to other drugs, medicaments and biological substances
CPT/HCPCS: 93005 ×2; 93306; 85025; 80048; 36415; 83735; 85610; 80076; 81003; 84484; 80053; 83880; 71045; 72170; 93971; 96375; 96374; 99284; J1170; J7030; J2405

== ENCOUNTER 2022-12-31 21:27 | Emergency (ER) | payer OTHER ==
--- OUTSIDE RECORDS SUMMARY | 2022-12-31 21:36 | XMS REPORT | Continuity of Care Document ---
:1950 Author Organization [facility] t Address [address] [facility] [address] [place] [address] Care Team Providers Name Role Phone CLAVIN WORLEY Primary Care Physician Unavailable [id number] Attending Clinician Unavailable KELLY WASHINGTON Attending Clinician Unavailable Zion Mathew Anavella Attending Clinician Unava ilable SWEETIE STOUT Attending Clinician Unavailable Sweetie Stout MD Attending Clinician ADRINAA HAINES Attending Clinician Unavailable Calvin Worley MD Attending Clinician Ruchi Peters RN Attending Clinician Paco Lacey DO Attending Clinician Hunter VILLAREAL, Vika Fernando Attending Clinician Alvarez Rowe MD Attending Clinician ALVAREZ ROWE Attending Clinician Unavailable PACO LACEY Attending Clinician Unavailable Doctor Unassigned, Henriette Attending Clinician Unavailable Wilder VILLAREAL, Angi K.H. Attending Clinician Jl Mccabe MD Attending Clinician Kelly [place] MD Attending Clinician [phone] Mukul Gallardo MD Attending Clinician [id number] Admitting Clinician Unavailable MUKUL GALLARDO Admitting Clinician Unavailable Angle Mathew, Anav Admitting Clinician Unavailable Hunter VILLAREAL, Vika G Admitting Clinician VIKA HARRISON Admitting Clinician Unavailable Mukul Gallardo MD Admitting Clinician Payers Payer Name Policy Type Policy Number Effective Date Expiration Date [place] MEDICARE PART A [id number] 2007 \\T\\ B 00:00:00 [employer] INDEMNITY [id number] 2016 00:00:00 MCR MCR [id number] MEDICARE PART A [id number] 2014 \\T\\ B - MEDICARE 00:00:00 INDEMNITY/TRADITIO [id number] NAL CHOICE - [employer] 00:00:00 Problems Condition Condition Condition Status Onset Resolution Last Treating Co mments Source Name Details Category Date Date Treatment Clinician Date Elevated Elevated Disease Active 2020-0 Unive rs LFTs LFTs 2-05 ity of 00:00: [place] 00 Medical Branch Abnormal Abnormal Disease Active 2020-0 Unive rs CXR CXR 2-05 ity of 00:00: Medical Branch Elevated Elevated Disease Active 2020-0 Unive rs LFTs LFTs 2-05 ity of 00:00: 00 Medical Branch Cellulitis Cellulitis Disease Active 2020-0 U nivers 2-04 ity of 00:00: [place] 00 Medical Branch Rash Rash Disease Active 2019- Univers 1-09 ity of 00:00: 00 Medical Branch Allergies, Adverse Reactions, Alerts Allergy Allergy Status Severity Reaction(s) Onset Inactive Treating Comm ents Source Name Type Date Date Clinician Bonner Propensi Active Rash 2019- Univers ty to 1-10 ity of adverse 00:00: [place] reaction 00 Medical s Branch PEACH DRUG Active Rash 2019- Univers INGREDI 1-10 ity of 00:00: 00 Medical Branch Lidocain Drug Active Itching 2019-10 Univers e Allergy -09 ity of 00:00: [place] 00 Medical Branch LIDOCAIN DRUG Active ITCHING [...] Quantity Comments Source Exposure to Not sure [place] of SARS-CoV-2 [place] Medical (event) Branch History of Chews Tobacco University of tobacco use [place] [facility] History SDOH 2020-11-17 2020-11-17 5 University o f Financial 00:00:00 00:00:00 [place] [facility] History SDOH Food 2020-11-17 2020-11-17 1 Univers ity of Worry 00:00:00 00:00:00 [place] [facility] History SDOH Food 2020-11-17 2020-11-17 1 Univers ity of Scarcity 00:00:00 00:00:00 [place] [facility] History SDOH 2020-11-17 2020-11-17 1 University o f Transport Med 00:00:00 00:00:00 [place] Medic al Branch History SDOH 2020-11-17 2020-11-17 1 University o f Transport Non-Med 00:00:00 00:00:00 [place] M edical Branch Education 2020-11-16 2020-11-16 21 [place] of 00:00:00 00:00:00 [facility] Branch Alcohol intake 2020-11-16 2020-11-16 Ex-drinker [place] of 00:00:00 00:00:00 (finding) [facility] Tobacco use and 2020-08-21 2020-08-21 Former user Universi ty of exposure 00:00:00 00:00:00 [facility] Tobacco Comment 2020-08-21 2020-08-21 quit 10 years Univer sity of 00:00:00 00:00:00 ago, started in [place] Med ica 2nd year of [facility] (~40 years) Alcohol Comment 2020-08-21 2020-08-21 Used to have 2-3 Uni versity of 00:00:00 00:00:00 six-packs of [place] Medica l beer daily x 20 Branch years, quit 2005 History [facility] 2020-08-21 2020-08-21 99 University o f Alcohol Frequency 00:00:00 00:00:00 [place] M edical Branch History [facility] 2020-08-21 2020-08-21 99 University o f Alcohol Std 00:00:00 00:00:00 [place] Medical Drinks Branch History [facility] 2020-08-21 2020-08-21 99 University o f Alcohol Binge 00:00:00 00:00:00 [facility] Sex [birth year] At [birth year] Universit y of 00:00:00 00:00:00 [facility] Smoking Status Start Date Stop Date Source Never smoker [facility] Medications Ordered Filled Start Stop [...] Until Discontinu ed, Routine amLODIPine 0 Yes [id number] 10mg Take 1 Univers 10 mg 3-07 tablet by ity of tablet 00:00: mouth [place] 00 daily. Medical Branch clotrimazol 2020-0 Yes [id number] Apply to Univers e 1 % 3-07 face/ears, ity of topical 00:00: armpits, [place] cream 00 pannus and Medical back/any Branch other rash twice a day fluocinonid 2020-0 Yes [id number] Apply to Univers e 0.05 % 3-07 scalp ity of solution 00:00: twice a [place] 00 day Medical Branch triamcinolo 2020-0 Yes [id number] Apply to Univers ne 3-07 back, ity of acetonide 00:00: armpits [place] 0.1 % cream 00 and other Med ical affected Branch areas twice daily, please mix with clotrimazo le hydrOXYzine 2020-0 Yes [id number] 10mg Take 1 Univers 10 mg 3-07 tablet by ity of tablet 00:00: mouth 2 00 (two) Medical times Branch daily. amLODIPine 2020-0 Yes [id number] 10mg Take 1 Univers 10 mg 3-07 tablet by ity of tablet 00:00: mouth [place] 00 daily. Medical Branch clotrimazol 2020-0 Yes [id number] Apply to Univers e 1 % 3-07 face/ears, ity of topical 00:00: armpits, [place] cream 00 pannus and Medical back/any Branch other rash twice a day fluocinonid 2020-0 Yes [id number] Apply to Univers e 0.05 % 3-07 scalp ity of solution 00:00: twice a [place] 00 day Medical Branch triamcinolo 2020-0 Yes [id number] Apply to Univers ne 3-07 back, ity of acetonide 00:00: armpits [place] 0.1 % cream 00 and other Med ical affected Branch areas twice daily, please mix with clotrimazo le hydrOXYzine 2020-0 Yes [id number] 10mg Take 1 Univers 10 mg 3-07 tablet by ity of tablet 00:00: mouth 2 [place] 00 (two) Medical times Branch daily. amLODIPine 2020-0 Yes [id number] 10mg Take 1 Univers 10 mg 3-07 tablet by ity of tablet 00:00: mouth [place] 00 daily. Medical Branch clotrimazol 2020-0 Yes [id number] Apply to Univers e 1 % 3-07 face/ears, ity of topical 00:00: armpits, [place] cream 00 pannus and Medical back/any Branch other rash twice a day fluocinonid 2020-0 Yes [id number] Apply to Univers e 0.05 % 3-07 scalp ity of solution 00:00: twice a day Medical Branch triamcinolo 0 Yes [id number] Apply to Univers ne 3-07 back, ity of acetonide 00:00: armpits [place] 0.1 % cream 00 and other Med ical affected Branch areas twice daily, please mix with clotrimazo le hydrOXYzine Yes [id number] 10mg Take 1 Univers 10 mg 3- tablet by ity of tablet 00:00: mouth 2 (two) Medical times Branch daily. amLODIPine Yes [id number] 10mg Take 1 Univers 10 mg 3-07 tablet by ity of tablet 00:00: mouth 00 daily. Medical Branch clotrimazol 0 Yes [id number] Apply to Univers e 1 % 3-07 face/ears, ity of topical 00:00: armpits, [place] cream 00 pannus and Medical back/any Branch other rash twice a day fluocinonid 2020-0 Yes [id number] Apply to Univers e 0.05 % 3-07 scalp ity of solution 00:00: twice a day Medical Branch triamcinolo 0 Yes [id number] Apply to Univers ne 3-07 back, ity of acetonide 00:00: armpits [place] 0.1 % cream 00 and other Med ical affected Branch areas twice daily, please mix with clotrimazo le hydrOXYzine Yes [id number] 10mg Take 1 Univers 10 mg 3-07 tablet by ity of tablet 00:00: mouth 2 00 (two) Medical times Branch daily. cephALEXin 2020-2020- No [id number] 500mg Take 1 Univers 500 mg 12-17- capsule by ity of capsule 00:00: 05:59 mouth [place] 00 :00 every 6 Medical (six) Branch hours for 3 days. cephALEXin 2020-2020- No [id number] 500mg Take 1 Univers 500 mg 12-17 capsule by ity of capsule 00:00: 05:59 mouth [place] 00 :00 every 6 Medical (six) Branch hours for 3 days. hydrOXYzine 2020- No [id number] 10mg Take 1 Univers 10 mg 12-17 [...] 1,000 mL 00 :00 IV Medical Infusion, [place] ONCE, 1 dose, 12/15/20 at 1900, Routine [...] days NaCl 0.9% No 500mL at [address] [facility] ers (NS) bolus 12-15-05 mL/hr, 500 it [...] Until Discontinu ed, Routine amLODIPine 2020- No [id number] 10mg Take 1 Univers 10 mg 12-15-07 tablet by ity of tablet 00:00: 00:00 mouth [place] 00 :00 daily. Medical Branch HYDROmorpho 2020- No 1mg 1 mg, Univ ers ne 3 03-05 Oral, ity of (DILAUDID) 17:35: 15:18 Q6HPRN, [place] tablet 1 mg 30 :06 Starting Medi [facility] 12/14/20 Branch at 1135, Until Fri12/15/20 at 0918, Routine, Pain (scale 7-10) hydrOXYzine Yes 10mg 10 mg, Univ ers (ATARAX) 304 Oral, BID, ity o f tablet 10 17:30: First dose [place] mg 00 on [facility] Medical 12/14/20 at Branch 1130, Until Discontinu ed, Routine lisinopriL Yes 5mg 5 mg, Univer s (PRINIVIL,Z 12-14 Oral, ity of ESTRIL) 17:30: DAILY, [place] tablet 5 mg 00 First dose Me dical on [place] Branch 12/14/20 at 1130, Until Discontinu ed, Routine triamcinolo 2020- No [id number] Apply to Univers ne 12-14 back, ity of acetonide 00:00: 00:00 armpits [place] 0.1 % cream 00 :00 and other Med ical affected Branch areas twice daily, please mix with clotrimazo le clotrimazol 2020- No [id number] Apply to Univers e 1 % 12-14 face/ears, ity of topical 00:00: 00:00 armpits, [place] cream 00 :00 pannus and Medical back/any Branch other rash twice a day fluocinonid 2020- No [id number] Apply to Univers e 0.05 % 12-14 scalp ity of solution 00:00: 00:00 twice a [place] 00 :00 day Medical Branch hydrOXYzine 2020- No [id number] 10mg Take 1 Univers 10 mg 12-14 [...] [place] capsule 300 00 on [facility] Medica l mg 12/11/20 at [...] mg 00 First dose Medical on Fri [place] 12/11/20 at 1700, Until Discontinu ed, Routine clotrimazol 0 Yes Topical, Un toi e 3- BID, First ity of (LOTRIMIN) 19:15: dose [place] 1 % topical Fri12/11/20 Me dical cream at 1315, Branch Until Discontinu ed, Routine hydrocortis 0 Yes Topical Uni vers one 2.5 % 12-11 (Apply To ity o f cream 19:15: Affected [place] 00 Areas), Medical BID, First Branch dose on Fri12/11/20 at 1315, Until Discontinu ed, Routine triamcinolo Yes Topical, Un toi ne 12-11 BID, First ity of acetonide 19:00: dose [place] (TRIDERM) 00 (after Medical 0.1 % cream last Branch modificati on) on Fri12/11/20 at 1300, Until Discontinu ed, Routine ceFAZolin 2020- No 1000mg 1,000 mg, [facility] (ANCEF) 12-11 03-05 IV ity of 1,000 mg in 19:00: 17:35 Piggyback, [place] NaCl 0.9% 00 :26 Q8H ABX, Medica l (NS) 50 mL First dose Bra nch MINI-BAG on Fri12/11/20 at 1300, Until Discontinu ed, 50 mL
R jose armando for Anti-Infec tive: Documented Infection< br>Documen ronan Infection Site: Skin / Soft Tissue
Duration of Therapy: 7 days Sliding Yes Subcutaneo [facility] ers Scale 12-11 us, TID ity of Insulin - 18:00: MEALS+HS, [place] Lispro 00 First dose Medical (HumaLOG) + on Fri Branch Fsbg 12/11/20 at Testing 1200, Until Discontinu ed, Routine insulin Yes 5U 5 Units, [facility] s lispro 12-11 Subcutaneo ity of (human) 18:00: us, TID [place] (HumaLOG 00 MEALS, Medical U-100) First dose Branch injection 5 on Fri Units 12/11/20 at 1200, Until Discontinu ed Polyethylen Yes 17g 17 g, [facility] rs e Glycol 12-11 Oral, ity of 3350 17:47: [id number], [place] (MIRALAX) 05 Starting Medica l powder [...] :00 ONCE, 1 Medical 75 mcg dose, [facility] Branch 12/11/20 at 0900, Routine vancomycin 2020- [...] STAT piperacilli 2020- No 3.375g 3.375 g, [facility] n-tazobacta 12-11 IV ity of m (ZOSYN) 12:00: 17:48 [place], [place] injection 00 :24 Q6H, First Medi jose c 3.375 g dose on Branch [facility] 12/11/20 at 0600, Until Discontinu ed, KAHLIL
Re ason for Anti-Infec tive: Empiric Therapy for Suspected Infection< br>Empiric Therapy Site: Skin / Soft tissue
Duration of therapy: 72 hours sennosides- Yes [id number] 1{tbl} Take 1 Univers docusate 2-09 tablet by ity of sodium 00:00: mouth 2 [place] 8.6-50 mg 00 (two) Medical per tablet times Branch daily. hydrocortis Yes [id number] Apply to [facility] one 2.5 % 2-09 affected ity of cream 00:00: area(s) 2 [place] 00 (two) Medical times Branch daily. blood sugar 2020-0 Yes [id number] Use to [facility] diagnostic 11-21 check ity of (FREESTYLE 00:00: blood [place] LITE 00 glucose Medical STRIPS) 4-5 times Branch strip daily. Polyethylen 2020-0 Yes [id number] 17g Take 1 Univers e Glycol 2-09 Packet by ity of 3350 17 00:00: mouth [place] gram powder 00 every 24 Medi jose c (twenty-fo Branch ur) hours as needed for Constipati on. sennosides- 2020- Yes [id number] 1{tbl} Take 1 Univers docusate 2-09 tablet by ity of sodium 00:00: mouth 2 [place] 8.6-50 mg 00 (two) Medical per tablet times Branch daily. hydrocortis 2020-0 Yes [id number] Apply to Univers one 2.5 % 2-09 affected ity of cream 00:00: area(s) 2 [place] 00 (two) Medical times Branch daily. blood sugar 2020-0 Yes [id number] Use to [facility] diagnostic 11-21 check ity of (FREESTYLE 00:00: blood [place] LITE 00 glucose Medical STRIPS) 4-5 times Branch strip daily. Polyethylen 2020-0 Yes [id number] 17g Take 1 Univers e Glycol 2-09 Packet by ity of 3350 17 00:00: mouth [place] gram powder 00 every 24 Medi jose c (twenty-fo Branch ur) hours as needed for Constipati on. sennosides- 2020-0 Yes [id number] 1{tbl} Take 1 Univers docusate 2-09 tablet by ity of sodium 00:00: mouth 2 [place] 8.6-50 mg 00 (two) Medical per tablet times Branch daily. hydrocortis 2020-0 Yes [id number] Apply to Univers one 2.5 % 2-09 affected ity of cream 00:00: area(s) 2 [place] 00 (two) Medical times Branch daily. blood sugar 2020-0 Yes [id number] Use to [facility] diagnostic 11-21 check ity of (FREESTYLE 00:00: blood [place] LITE 00 glucose Medical STRIPS) 4-5 times Branch strip daily. Polyethylen 2020-0 Yes [id number] 17g Take 1 Univers e Glycol 2-09 Packet by ity of 3350 17 00:00: mouth [place] gram powder 00 every 24 Medi jose c (twenty-fo Branch ur) hours as needed for Constipati on. sennosides- Yes [id number] 1{tbl} Take 1 Univers docusate 11-21 tablet by ity of sodium 00:00: mouth 2 [place] 8.6-50 mg 00 (two) Medical per tablet times Branch daily. hydrocortis Yes [id number] Apply to [facility] one 2.5 % 11-21 affected ity of cream 00:00: area(s) 2 [place] 00 (two) Medical times Branch daily. blood sugar Yes [id number] Use to [facility] diagnostic 11-21 check ity of (FREESTYLE 00:00: blood [place] LITE 00 glucose Medical STRIPS) 4-5 times Branch strip daily. Polyethylen Yes [id number] 17g Take 1 Univers e Glycol - Packet by ity of 3350 17 00:00: mouth [place] gram powder 00 every 24 Medi jose c (twenty-fo Branch ur) hours as needed for Constipati on. Insulin 2020- No [id number] 15U inject 15 Univers Glargine 11-21-12 Units ity of (LANTUS 00:00: 05:59 under the OB10 SOLOSTAR 00 :00 skin every Medic al U-100 morning Branch INSULIN) for 30 100 unit/mL days. (3 mL) injection venlafaxine 2020- No [id number] 150mg Take 1 Univers XR 150 mg 11-21 capsule by ity of 24 hr 00:00: 05:59 mouth 3 [place] capsule 00 :00 (three) Medical times Branch daily for 30 days. Insulin 2020- No [id number] 15U inject 15 Univers Glargine 11-21-12 Units ity of (LANTUS 00:00: 05:59 under the [employer] SOLOSTAR 00 :00 skin every Medic al U-100 morning Branch INSULIN) for 30 100 unit/mL days. (3 mL) injection venlafaxine 2020- No [id number] 150mg Take 1 Univers XR 150 mg 11-21 capsule by ity of 24 hr 00:00: 05:59 mouth 3 [place] capsule 00 :00 (three) Medical times Branch daily for 30 days. triamcinolo 2020- No [id number] Apply to [facility] ne 11-21 area(s) 2 ity of acetonide 00:00: 00:00 (two) [place] 0.1 % cream 00 :00 times Medical daily. Branch cephALEXin 2020- No [id number] 1000mg Take 2 Univers 500 mg 11-21 capsules ity of capsule 00:00: 00:00 by mouth 3 [place] 00 :00 (three) Medical times Branch daily. doxycycline 2020- No [id number] 100mg Take 1 Univers hyclate 100 11-21 capsule by i ty of mg capsule 00:00: 00:00 mouth [place] 00 :00 every 12 Medical (twelve) Branch hours. lactobacill 2020- No [id number] 1{tbl} Take 1 Univers us 11-21 tablet by ity of acidophilus 00:00: 00:00 mouth 2 [place] 25 million 00 :00 (two) Medical cell -100 times Branch mg captab daily. bisacodyL 2020- No [id number] 10mg Insert 1 Univers 10 mg 11-21 Suppositor ity of suppository 00:00: 00:00 y into [place] 00 :00 rectum at Medical bedtime as Branch needed for Constipati on. ALPRAZolam 2020- No [id number] .25mg Take 1 Univers (XANAX) 11-21 tablet by ity of 0.25 mg 00:00: 00:00 mouth 2 [place] tablet 00 :00 (two) Medical times Branch daily. hydrOXYzine 2020- No [id number] 20mg Take 2 Univers 10 mg 11-21 [...] 34 :00 Medical Branch hydrocortis 2019-10 Yes [id number] Apply to Univers one 2.5 % 1-11 affected ity of cream 00:00: area(s) 2 [place] 00 (two) Medical times Branch daily. hydrOXYzine 2019-10 Yes [id number] 20mg Take 2 Univers 10 mg 1-11 tablets by ity of tablet 00:00: mouth [place] 00 every 8 Medical (eight) Branch hours as needed for Itching or Anxiety. Polyethylen 2019-10 Yes [id number] 17g Take 1 Univers e Glycol 1-11 Packet by ity of 3350 17 00:00: mouth [place] gram powder 00 every 24 Medi jose c (twenty-fo Branch ur) hours as needed for Constipati on. hydrocortis 2019- Yes [id number] Apply to Univers one 2.5 % 1-11 affected ity of cream 00:00: area(s) 2 [place] 00 (two) Medical times Branch daily. hydrOXYzine 2019- Yes [id number] 20mg Take 2 Univers 10 mg 1-11 tablets by ity of tablet 00:00: mouth [place] 00 every 8 Medical (eight) Branch hours as needed for Itching or Anxiety. Polyethylen 2020- Yes [id number] 17g Take 1 Univers e Glycol 1-11 Packet by ity of 3350 17 00:00: mouth [place] gram powder 00 every 24 Medi jose c (twenty-fo Branch ur) hours as needed for Constipati on. hydrocortis 2019- Yes [id number] Apply to Univers one 2.5 % 1-11 affected ity of cream 00:00: area(s) 2 [place] 00 (two) Medical times Branch daily. hydrOXYzine 2019- Yes [id number] 20mg Take 2 Univers 10 mg 1-11 tablets by ity of tablet 00:00: mouth [place] 00 every 8 Medical (eight) Branch hours as needed for Itching or Anxiety. Polyethylen 2019- Yes [id number] 17g Take 1 Univers e Glycol 1-11 Packet by ity of 3350 17 00:00: mouth [place] gram powder 00 every 24 Medi jose c (twenty-fo Branch ur) hours as needed for Constipati on. hydrocortis 2019- Yes [id number] Apply to Univers one 2.5 % 1-11 affected ity of cream 00:00: area(s) 2 [place] 00 (two) Medical times Branch daily. hydrOXYzine 2019- Yes [id number] 20mg Take 2 Univers 10 mg 1-11 tablets by ity of tablet 00:00: mouth [place] 00 every 8 Medical (eight) Branch hours as needed for Itching or Anxiety. Polyethylen 2019- Yes [id number] 17g Take 1 Univers e Glycol 1-11 Packet by ity of 3350 17 00:00: mouth [place] gram powder 00 every 24 Medi jose c (twenty-fo Branch ur) hours as needed for Constipati on. hydrocortis 2019- Yes [id number] Apply to Univers one 2.5 % 1-11 affected ity of cream 00:00: area(s) 2 [place] 00 (two) Medical times Branch daily. hydrOXYzine 2019- Yes [id number] 20mg Take 2 Univers 10 mg 1-11 tablets by ity of tablet 00:00: mouth [place] 00 every 8 Medical (eight) Branch hours as needed for Itching or Anxiety. Polyethylen 2020- Yes [id number] 17g Take 1 Univers e Glycol 1-11 Packet by ity of 3350 17 00:00: mouth [place] gram powder 00 every 24 Medi jose c (twenty-fo Branch ur) hours as needed for Constipati on. hydrocortis 2019- Yes [id number] Apply to Univers one 2.5 % 1-11 affected ity of cream 00:00: area(s) 2 [place] 00 (two) Medical times Branch daily. hydrOXYzine 2019- Yes [id number] 20mg Take 2 Univers 10 mg 1-11 tablets by ity of tablet 00:00: mouth [place] 00 every 8 Medical (eight) Branch hours as needed for Itching or Anxiety. Polyethylen 2019- Yes [id number] 17g Take 1 Univers e Glycol 1-11 Packet by ity of 3350 17 00:00: mouth [place] gram powder 00 every 24 Medi jose c (twenty-fo Branch ur) hours as needed for Constipati on. hydrocortis 2019-10 Yes [id number] Apply to Univers one 2.5 % 1-11 affected ity of cream 00:00: area(s) 2 [place] 00 (two) Medical times Branch daily. hydrOXYzine 2019-10 Yes [id number] 20mg Take 2 Univers 10 mg 1-11 tablets by ity of tablet 00:00: mouth [place] 00 every 8 Medical (eight) Branch hours as needed for Itching or Anxiety. Polyethylen 2019- Yes [id number] 17g Take 1 Univers e Glycol 1-11 Packet by ity of 3350 17 00:00: mouth [place] gram powder 00 every 24 Medi jose c (twenty-fo Branch ur) hours as needed for Constipati on. triamcinolo 2019- 2020- No [id number] Apply to [place] [facility] 10-23 area(s) 2 ity of acetonide 00:00: 05:59 (two) [place] 0.1 % cream 00 :00 times Medical daily for Branch 14 days. triamcinolo 2020- 2020- No [id number] Apply to [facility] 10-23 area(s) 2 ity of acetonide 00:00: 05:59 (two) [place] 0.1 % cream 00 :00 times Medical daily for Branch 14 days. triamcinolo 2020- 2020- No [id number] Apply to [place] [facility] 1-11 11-26 area(s) 2 ity of acetonide [...] [place] tablet 1 mg 53 Starting [facility] 08/22/20 at 0907, Until Discontinu ed, Routine, Pain (scale 7-10) hydrocortis 2019-10 Yes Topical Uni vers one 2.5 % -10 (Apply To ity o f cream 02:00: Affected [place] 00 Areas), Medical BID, First Branch dose on [facility] 08/21/20 at 2000, Until Discontinu ed, Routine triamcinolo 2019-10 Yes Topical, Un toi ne 1-10 BID, First ity of acetonide 02:00: dose on [place] (TRIDERM) 00 Fri Medical 0.1 % cream 08/21/20 at Br anch 2000, Until Discontinu ed, Routine hydrOXYzine 2019-10 Yes 20mg 20 mg, Univ ers (ATARAX) 09 Oral, ity of tablet 20 17:39: Q8HPRN, [place] mg 12 Starting Medical [facility] 08/21/20 at 1139, Until Discontinu ed, Routine, Itching, Anxiety sennosides- 2019-10 Yes 1{tbl} 1 tablet, Univers docusate 09 Oral, ity of sodium 15:00: DAILY, [place] (SENOKOT-S) 00 First dose Me dical 8.6-50 mg on [facility] Branch per tablet 08/21/20 at 1 tablet 0900, Until Discontinu ed, Routine hydrocortis 2019-10 2020- No Topical Un toi one 1 % 10-21 11- (Apply To ity of cream 15:00: 22:54 Affected [place] 00 :48 Areas), Medical DAILY, Branch First dose on [facility] 08/21/20 at 0900, Until Discontinu ed, Routine venlafaxine 2019-10 Yes 150mg 150 mg, Un toi XR (EFFEXOR 10-21 Oral, TID, it y of XR) 24 hr 14:00: First dose [place] capsule 150 00 on [facility] Medica l mg 08/21/20 at Branch 0800, Until Discontinu ed, Routine heparin 2019-10 Yes 5000U 5,000 Univers (porcine) 10-21 Units, ity of injection 14:00: Subcutaneo [place] 5,000 Units 00 us, Q12H, Med ical First dose Branch on [facility] 08/21/20 at 0800, Until Discontinu ed, Routine diphenhydrA 2019-10 2020- No 25mg 25 mg, Uni vers MINE 10-21 Oral, ity of (BENADRYL) 12:56: 17:39 Q8HPRN, [place] tablet 25 59 :43 Starting Medica l mg [facility] 08/21/20 at 0656, Until [facility] 08/21/20 at 1139, Routine, Itching, Mild Rash, Congestion /Allergies , alternate with hydroxyzin e hydrOXYzine 2019-10 2020- No 10mg 10 mg, Uni vers (ATARAX) 10-21 Oral, ity of tablet 10 10:20: 12:57 Q6HPRN, [place] mg 22 :12 Starting Medical [facility] 08/21/20 at 0420, Until [facility] 08/21/20 at 0657, Routine, Itching, Anxiety Sliding 2019-10 Yes Subcutaneo Univ ers Scale 10-21 us, Q4H, ity of Insulin - 10:00: First dose [place] Aspart 00 (after Medical (NOVOLOG) + last Branch Fsbg modificati Testing on) on [facility] 08/21/20 at 0400, Until Discontinu ed, Routine lidocaine 5 2019-10 2020- No Topical, U nivers % ointment 10-21 ONCE, 1 ity o f 09:30: 09:14 dose, [facility] 00 :00 08/21/20 at [facility] 0330, Branch Routine Polyethylen 2019-10 Yes 17g 17 g, Unive rs e Glycol 10-21 Oral, ity of 3350 08:29: [id number], [place] (MIRALAX) 09 Starting Medica l powder 17 g [facility] 08/21/20 at 0229, Until Discontinu ed, Routine, Constipati on lanolin 2019-10 Yes Topical, [facility] s alcohol-mo- 10-21 PRN, ity of [...] tablet 650 24 Starting Medic al mg [facility] 08/21/20 at 0145, Until Discontinu ed, Routine, Pain (scale 1-3) sotalol 2019-10 2020- No Take by [facility] s (BETAPACE) 10-21 mouth ity of 240 mg 07:43: 00:00 every 12 [place] tablet 30 :00 (twelve) Medical hours. Branch blood sugar Yes Use to [facility] ers diagnostic 4-25 check ity of (FREESTYLE 00:00: blood [place] LITE 00 glucose Medical STRIPS) 4-5 times Branch strip daily. blood sugar Yes Use to [facility] ers diagnostic 4-25 check ity of (FREESTYLE 00:00: blood [place] LITE 00 glucose Medical STRIPS) 4-5 times Branch strip daily. blood sugar Yes Use to [facility] ers diagnostic 4-25 check ity of (FREESTYLE 00:00: blood [place] LITE 00 glucose Medical STRIPS) 4-5 times Branch strip daily. blood sugar Yes Use to [facility] ers diagnostic 4-25 check ity of (FREESTYLE 00:00: blood [place] LITE 00 glucose Medical STRIPS) 4-5 times Branch strip daily. blood sugar Yes Use to [facility] ers diagnostic 4-25 check ity of (FREESTYLE 00:00: blood [place] LITE 00 glucose Medical STRIPS) 4-5 times Branch strip daily. blood sugar Yes Use to [facility] ers diagnostic 4-25 check ity of (FREESTYLE 00:00: blood [place] LITE 00 glucose Medical STRIPS) 4-5 times Branch strip daily. blood sugar Yes Use to [facility] ers diagnostic -25 check ity of (FREESTYLE 00:00: blood [place] LITE 00 glucose Medical STRIPS) 4-5 times Branch strip daily. Vital Signs Vital Name Observation Time Observation Value Comments Source Systolic blood 2021-08-22 13:00:00 148 mm[Hg] Univer sity of [facility] Diastolic blood 2021-08-22 13:00:00 84 mm[Hg] [facility] Heart rate 2021-08-22 13:00:00 103 /min [facility] Respiratory rate 2021-08-22 13:00:00 18 /min [facility] Oxygen saturation in 2021-08-22 13:00:00 95 /min [facility] Arterial blood by [facility] Pulse oximetry Branch Body temperature 2021-08-22 12:22:00 36.72 [place] [facility] Systolic blood 2020-12-17 18:35:00 139 mm[Hg] Univer sity of [facility] Diastolic blood 2020-12-17 18:35:00 87 mm[Hg] [facility] Heart rate 2020-12-17 18:35:00 110 /min [facility] Body temperature 2020-12-17 18:35:00 37.72 [place] Univ ers[facility] [place] [facility] Respiratory rate 2020-12-17 18:35:00 18 /min Univ ersity of [place] [facility] Oxygen saturation in 2020-12-17 18:35:00 93 /min University of Arterial blood by [facility] Pulse oximetry Branch Body height [...] /min University of Arterial blood by [facility] Pulse oximetry Branch Body height [...] /min University of Arterial blood by [facility] Pulse oximetry Branch Body weight 2020-08-21 07:20:00 104.962 kg Universi [facility] BMI 2020-08-21 07:20:00 32.27 kg/m2 [facility] Systolic blood 2020-08-23 19:27:00 140 mm[Hg] Univer sity of pressure [facility] Diastolic blood 2020-08-23 19:27:00 79 mm[facility]Hg] [facility] 2020-08-23 19:27:00 99 /min [facility] Body temperature 2020-08-23 19:27:00 36 [place] [facility] [place] [facility] Respiratory rate 2020-08-23 19:27:00 18 /min Univ [facility] Oxygen saturation in 2020-08-23 19:27:00 93 /min [facility] Arterial blood by [facility] Pulse oximetry Branch Body weight 2020-08-21 07:20:00 104.962 kg [facility] BMI 2020-08-21 07:20:00 32.27 kg/m2 [facility] Procedures Procedure Date / Time Performing Clinician Source Performed POCT GLUCOSE (AUTOMATED) 2020-12-17 15:42:00 Vika Harrison G Uni [facility] BASIC METABOLIC PANEL 2020-12-17 10:45:00 Paul Bean [facility] (NA, K, CL, CO2, GLUCOSE, [facility] Medica l Branch BUN, CREATININE, CA) CBC WITH DIFF 2020-12-17 10:45:00 Paul Bean [facility] POCT GLUCOSE (AUTOMATED) 2020-12-17 02:36:00 [facility] [place] [facility] XR TIBIA FIBULA 2 VW LEFT 2020-12-16 23:38:00 Paul Bean [facility] POCT GLUCOSE (AUTOMATED) 2020-12-16 23:20:00 [facility] [place] [facility] POCT GLUCOSE (AUTOMATED) 2020-12-16 20:10:00 Vika Harrison Uni [facility] POCT GLUCOSE (AUTOMATED) 2020-12-16 14:43:00 Harrison, Premal [facility] [place] [facility] BASIC METABOLIC PANEL 2020-12-16 13:51:00 Paul Bean [facility] (NA, K, CL, CO2, GLUCOSE, [facility] BUN, CREATININE, CA) CBC WITH DIFF 2020-12-16 13:51:00 Paul Bean [facility] POCT GLUCOSE (AUTOMATED) 2020-12-16 04:00:00 Harrison, Premal [facility] POCT GLUCOSE (AUTOMATED) 2020-12-16 00:14:00 Favio [facility]al [facility] [place] [facility] CHEST PULMONARY 2020-12-15 22:29:38 [facility] ANGIOGRAM [facility] POCT GLUCOSE (AUTOMATED) 2020-12-15 19:26:00 Favio Harrisonal [facility] POCT GLUCOSE (AUTOMATED) 2020-12-15 15:13:00 Vika [facility] [place] [facility] HB ECG ROUTINE & RHYTHM 2020-12-15 14:25:27 Cailin Romo [facility] MAGNESIUM 2020-12-15 12:01:00 Paul Bean [facility] BASIC METABOLIC PANEL 2020-12-15 12:01:00 Paul Bean [facility] (NA, K, CL, CO2, GLUCOSE, [facility] BUN, CREATININE, CA) CBC WITH DIFF 2020-12-15 12:01:00 Paul Bean [facility] POCT GLUCOSE (AUTOMATED) 2020-12-15 03:57:00 Harrison, Favioal G Uni versity of [facility] POCT GLUCOSE (AUTOMATED) 2020-12-14 23:31:00 Harrison, Premal G Uni versity [facility] POCT GLUCOSE (AUTOMATED) 2020-12-14 19:08:00 Harrison, Premal G Uni versity of [facility] POCT GLUCOSE (AUTOMATED) 2020-12-14 15:11:00 Harrison, Premal G Uni versity of [facility] POCT GLUCOSE (AUTOMATED) 2020-12-14 02:36:00 Harrison, Premal G Uni versity of [facility] POCT GLUCOSE (AUTOMATED) 2020-12-13 23:32:00 Harrison, Premal G Uni versity of [facility] POCT GLUCOSE (AUTOMATED) 2020-12-13 18:08:00 Harrison, Premal G Uni versity of [facility] BASIC METABOLIC PANEL 2020-12-13 15:39:00 Paul Bean [facility] (NA, K, CL, CO2, GLUCOSE, [facility] BUN, CREATININE, CA) CBC WITH DIFF 2020-12-13 15:39:00 Paul Bean [facility] POCT GLUCOSE (AUTOMATED) 2020-12-13 14:06:00 Harrison, Premal G Uni versity of [facility] POCT GLUCOSE (AUTOMATED) 2020-12-13 03:07:00 Harrison, Premal G Uni versity of [facility] POCT GLUCOSE (AUTOMATED) 2020-12-12 23:52:00 Harrison, Premal G Uni versity of [facility] POCT GLUCOSE (AUTOMATED) 2020-12-12 20:28:00 Harrison, Premal G Uni versity of [facility] POCT GLUCOSE (AUTOMATED) 2020-12-12 19:14:00 Harrison, Premal G Uni versity of [facility] POCT GLUCOSE (AUTOMATED) 2020-12-12 14:33:00 Harrison, Premal G Uni versity of [facility] Branch MAGNESIUM 2020-12-12 08:58:00 Paul Bean [facility] BASIC METABOLIC PANEL 2020-12-12 08:58:00 Paul Bean [facility] (NA, K, CL, CO2, GLUCOSE, [facility] BUN, CREATININE, CA) CBC WITH DIFF 2020-12-12 08:58:00 Paul Bean [facility] US ABDOMEN LIMITED 2020-12-12 06:32:26 Paul Bean [facility] POCT GLUCOSE (AUTOMATED) 2020-12-12 03:40:00 [place] Vika [facility] [place] [facility] POCT GLUCOSE (AUTOMATED) 2020-12-12 00:06:00 Vika [facility] XR HIPS 3 VW LEFT 2020-12-11 20:20:00 [facility]OUTINE & RHYTHM 2020-12-11 20:04:06 Demetrius [facility] VITAMIN B6, PLASMA 2020-12-11 19:17:00 [facility]OMATED) 2020-12-11 19:06:00 Vika [facility] CREATINE KINASE 2020-12-11 18:22:00 [facility] B12, LEVEL 2020-12-11 18:22:00 Vikas [facility] FOLATE 2020-12-11 18:22[facility] 2020-12-11 18:22:00 Demetrius Cailin [facility] PROCALCITONIN 2020-12-11 18:22:00 Elizabeth [facility] VITAMIN B1 (THIAMINE), 2020-12-11 18:22:00 [facility]ly [facility] WHOLE BLOOD [facility] CT HEAD WO CONTRAST 2020-12-11 14:07:35 Sweetie Stout [facility] URINALYSIS 2020-12-11 13:44:00 Singer [facility] URINE CULTURE 2020-12-11 13:44:00 Singer [facility] COVID-19 (ID NOW RAPID 2020-12-11 12:31:00 Paco Lacey [facility] TESTING) Medical Branch LAB ONLY COVID 2020-12-11 12:31:00 Singer Paco [facility] INTERPRETATION [facility] Branch XR CHEST 1 VW 2020-12-11 12:07:24 Singer [facility] BLOOD CULTURE SCREEN 2020-12-11 12:02:00 Singer Paco [facility] MAGNESIUM 2020-12-11 12:02:00 [facility] 2020-12-11 12:02:00 [facility] COMP. METABOLIC PANEL 2020-12-11 12:02:00 Singer [facility] ([id number]) [facility] Branch CBC WITH DIFF 2020-12-11 12:02:00 [facility] LACTIC ACID WHOLE BLOOD 2020-12-11 12:02:00 [facility] BLOOD CULTURE SCREEN 2020-12-11 11:42:00 Singer [facility] EMERGENCY SERVICES 2020-12-11 06:01:00 Doctor Unaowen, [facility] AGREEMENTS AND [place] [facility] [place] AUTHORIZATIONS HOSPITAL ADMISSION 2020-12-11 06:01:00 Doctor Tabitha, [facility] Name [facility] [place] HOME HEALTH - OTHER 2020-11-11 06:01:00 Doctor Tabitha, [facility] [place] [facility] [place] [facility] - OTHER 2020-10-30 06:01:00 Doctor Tabitha, [facility] Name Medical [place] EXTERNAL PROVIDER RECORDS 2020-09-01 06:01:00 Doctor Tabitha, [facility] Name [facility] POCT GLUCOSE (AUTOMATED) 2020-08-23 18:09:00 [place] [facility] POCT GLUCOSE (AUTOMATED) 2020-08-23 14:14:00 Kelly [place] [facility] MAGNESIUM 2020-08-23 11:18:00 Ramya [facility] BASIC METABOLIC PANEL 2020-08-23 11:18:00 Ramya [facility] (NA, K, CL, CO2, GLUCOSE, Medica l Branch BUN, CREATININE, CA) CBC WITH DIFF 2020-08-23 11:18:00 Ramya [facility] POCT GLUCOSE (AUTOMATED) 2020-08-23 10:21:00 StefaniaKelly versity [facility] POCT GLUCOSE (AUTOMATED) 2020-08-23 05:55:00 [place] versity of [facility] POCT GLUCOSE (AUTOMATED) 2020-08-23 03:00:00 [place] versity [facility] POCT GLUCOSE (AUTOMATED) 2020-08-22 23:38:00 [place], Kelly Elias versity of [facility] POCT GLUCOSE (AUTOMATED) 2020-08-22 19:04:00 Stefanai [place] [facility] (AUTOMATED) 2020-08-22 13:49:00 Stefania Kelly Elias [facility] MAGNESIUM 2020-08-22 10:10:00 [place] [facility] HEPATIC FUNCTION PANEL 2020-08-22 10:10:00 Aguila Melchor [facility] ([id number]) (ALB,T.PRO,BILI Medical Branch T,BU/BC,ALT,AST,ALK PHOS) BASIC METABOLIC PANEL 2020-08-22 10:10:00 [place] [facility] (NA, K, CL, CO2, GLUCOSE, Medica l Branch BUN, CREATININE, CA) LIPID PANEL (11201)(TOTAL 2020-08-22 10:10:00 [place] [facility] CHOLESTEROL, Medical [place] TRIGLYCERIDES, HDL) CBC WITH DIFF 2020-08-22 10:10:00 [place] [facility] POCT GLUCOSE (AUTOMATED) 2020-08-22 10:10:00 Stefania Kelly Elias [facility] POCT GLUCOSE (AUTOMATED) 2020-08-22 07:13:00 Stefania Kelly lEias [facility] POCT GLUCOSE (AUTOMATED) 2020-08-22 02:24:00 Stefania Kelly Elias [facility] POCT GLUCOSE (AUTOMATED) 2020-08-21 23:40:00 Stefania Kelly Elias [facility] POCT GLUCOSE (AUTOMATED) 2020-08-21 18:10:00 StefaniaKelly [facility] POCT GLUCOSE (AUTOMATED) 2020-08-21 13:39:00 StefaniaKelly [facility] ETHANOL 2020-08-21 12:35:00 Richie [facility] ACTIVATED PARTIAL 2020-08-21 12:35:[address] [facility] GALV ONLY - SYPHILIS 2020-08-21 12:35:00 Stefania Kelly [facility] IGG/IGM [facility] LACTATE DEHYDROGENASE 2020-08-21 10:09:00 Ramya, [facility] GALV/CLC ONLY - URINE 2020-08-21 10:09:00 [facility] - 4 ER Medica l Branch PANEL URINALYSIS 2020-08-21 10:09:00 Ramya, [facility] URINE CULTURE 2020-08-21 10:09:00 [place], [facility] PROCALCITONIN 2020-08-21 10:09:00 Ramya, [facility] POCT GLUCOSE (AUTOMATED) 2020-08-21 09:41:00 StefaniaKelly [facility] PROTHROMBIN TIME / INR 2020-08-21 08:32:00 [place], [facility] ACTIVATED PARTIAL 2020-08-21 08:32:00 Ramya, [facility] C-REACTIVE PROTEIN 2020-08-21 08:31:00 Ramya, [facility] HEPATIC FUNCTION PANEL 2020-08-21 08:31:00 [place], [facility] ([id number]) (ALB,T.PRO,BILI Medical Branch T,BU/BC,ALT,AST,ALK PHOS) BASIC METABOLIC PANEL 2020-08-21 08:31:00 Ramya, [facility] (NA, K, CL, CO2, GLUCOSE, Medica l Branch BUN, CREATININE, CA) SEDIMENTATION RATE 2020-08-21 08:31:00 Ramya, [facility] CBC WITH DIFF 2020-08-21 08:31:00 [place], [facility] o f [facility] GLYCOSYLATED HEMOGLOBIN 2020-08-21 08:31:00 [place], [facility] (A1C) [facility] HIV 1/2 AG-AB WITH REFLEX 2020-08-21 08:31:00 [place] Un [facility] COVID-19 (ID NOW RAPID 2020-08-21 08:20:00 Ramya, [facility] TESTING) Medical Branch LAB ONLY COVID 2020-08-21 08:20:00 [place], [facility] INTERPRETATION [facility] Encounters Start End Encounter Admission Attending Care Care Encounter Source Date/Time Date/Time Type Type Clinicians Facility Department ID 2022-11-13 Outpatient 3 [id number] ENCPL REF [id number] [facility] 11:39:58 0201 [facility] [place] 2020-08-21 Inpatient U STEFANIA [facility] KVNG [id number] Univers 01:07:00 KELLY cantu [facility] 2022-11-14 2022-11-28 Inpatient 3 [facility] ENCPL DELVIS [id number] [facility] 20:40:00 13:29:00 [facility]aggy [facility] [place] 2021-08-22 2021-08-22 Emergency X [facility] ERT [id number] Univers 06:21:00 08:02:00 [facility] 2021-08-22 2021-08-22 Emergency [facility] [id number] Univers 06:21:00 08:02:00 Sweetie LOTT [id number] i ty roxana WARREN 4.2.7.2.686 [facility] [id number] [facility] 084 Branch 2021-08-09 2021-08-09 Outpatient JACQUELYN HAINES [id number] [facility] 10:27:03 10:27:03 ADRIANA lopez of Medicin e 2020-12-28 2020-12-28 Telephone [facility] [id number] Univers 00:00:00 00:00:00 Calvin H PRIMARY [id number] it y of [place]2.[place] [id number] Oh dical 220 Branch 2020-12-28 2020-12-28 Telephone [facility] 1.2.840.114 [id number] 00:00:00 00:00:00 Calvin H PRIMARY [id number] CARE 4.2.7.2.686 PAVILLION [id number] 220 2020-12-19 2020-12-19 Transition Tuan Peters 1.2.840.114 [id number] Univers 00:00:00 00:00:00 of Care Ruchi Braswell [id number] it [place].2.[place] [id number] [facility] 403 Branch 2020-12-19 2020-12-19 Transition Tuan Peters 1.2.840.114 [id number] 00:00:00 00:00:00 of Care Ruchi Braswell [id number] [place] 4.2.7.2.686 [id number] [facility] 2020-12-11 2020-12-17 [facility] Paco Lacey 1.2.840.1 [id number] Univers 05:11:00 16:00:00 Encounter Vika Harrisony [id number] ity of [facility] 4.2.7.2.686 [place] [id number] [facility] 096 Branch 2020-12-11 2020-12-17 Inpatient X [facility] [id number] Univers 05:11:00 16:00:00 ity of [facility] 2020-12-11 2020-12-17 [facility] Paco Lacey 1.2.840.1 14 [id number] 05:11:00 16:00:00 Encounter Vika Harrison G [place] [id number] [facility] 4.2.7.2.686 [id number] 2020-11-16 2020-11-16 Emergency X , [facility] ERT [id number] Univers 09:31:00 09:31:00 PACO cantu of [facility] 2020-11-11 2020-11-11 Orders Doctor BASILIA 1.2.840.114 [id number] Univers 00:00:00 00:00:00 Only Unassigned, NATTY [id number] ity of [place] [facility] 4.2.7.2.686 Jeff as [id number] [address] 2020-11-11 2020-11-11 Orders Doctor BASILIA 1.2.840.114 [id number] 00:00:00 00:00:00 Only Unassigned, NATTY [id number] [place] [facility] 4.2.7.2.686 [id number] 009 2020-11-07 2020-11-07 Telephone [facility] [id number] Univers 00:00:00 00:00:00 Angi Lott 350.1.13.10 ity of [place] Profess[place] [id number] [address] 2020-11-07 2020-11-07 Telephone [facility] [id number] 00:00:00 00:00:00 Angi Lott 350.1.13.10 [place] 4.2.7.2.686 Professio [id number] [address] 2020-10-30 2020-10-30 Orders Doctor BASILIA 1.2.840.114 [id number] Univers 00:00:00 00:00:00 Only Unassigned, NATTY 350.1.13.10 ity of [place] [facility] 4.2.7.2.686 Jeff as [phone] [address] 2020-10-30 2020-10-30 Orders Doctor CUI 1.2.840.114 [id number] 00:00:00 00:00:00 Only Unassigned, NATTY 350.1.13.10 [place] 4.2.7.2.686 [id number] 009 2020-09-26 2020-09-26 Telephone STONE Mccabe 1.2.840.114 [id number] Univers 00:00:00 00:00:00 Jl Renato [facility] 350.1.13.10 i ty of CLINICS 4[place]2.7.2.[place] [phone] [facility] 027 Branch 2020-09-26 2020-09-26 Telephone STONE Mccabe 1.2.840.114 [id number] 00:00:00 00:00:00 Jl Renato [facility] 350.1.13.10 CLINICS 4.2.7.2.686 [id number] 027 2020-09-01 2020-09-01 Orders Doctor BASILIA 1.2.840.114 [id number] Univers 00:00:00 00:00:00 Only Unassigned, NATTY 350.1.13.10 ity of [place] [facility] 4.2.7.2.686 Jeff as [id number] [facility] 009 Branch 2020-09-01 2020-09-01 Orders Doctor BASILIA 1.2.840.114 [id number] 00:00:00 00:00:00 Only Unassigned, NATTY 350.1.13.10 [facility] 4.2.7.2.686 [id number] 009 2020-08-25 2020-08-25 Transition Tuan Peters 1.2.840.114 [id number] Univers 00:00:00 00:00:00 of Care Ruchi Braswell 350.1.13.10 it [place] [phone] [facility] 403 Branch 2020-08-25 2020-08-25 Transition Tuan Peters 1.2.840.114 [id number] 00:00:00 00:00:00 of Care Ruchi Braswell 350.1.13.10 [place] 4.2.7.2.686 [id number] 2020-08-21 2020-08-23 [facility] Kelly [place] 1. 2.840.114 [id number] Univers 01:07:00 18:35:00 Encounter Mukul Gallardo 350.1.13. 10 [facility] 4.2.7.2.686 Jeff as [id number] [place] [id number] [place] 2020-08-21 2020-08-23 [facility] Ayleen [place] 1.2.840.114 [id number] 01:07:00 18:35:00 Encounter Kelly Amaya 350.1.13.10 [facility] 4.2.7.2.686 [id number] [id number] Results Test Description Test Time Test Comments Results Result Comments Source POCT GLUCOSE (AUTOMATED) 2020-12-17 15:43:35 Test Item Value Reference Range Interpretation Comme nts POCT GLU (test code = 9374345735) 129 mg/dL 70-110 H Lab Interpretation (test code = 52397-7) Abnormal [facility] METABOLIC PANEL (NA, K, CL, CO2, GLUCOSE, BUN, CREATININE, CA)2020-12-17 11:45:07 Test Item Value Reference Range Interpretation Comments NA (test code = 137 mmol/L 135-145 9437015747) K (test code = 3.5 mmol/L 3.5-5.0 2166796483) CL (test code = 103 mmol/L 98-108 0923876541) CO2 TOTAL (test code = 26 mmol/L 23-31 5712920831) AGAP (test code = 2-16 8762917343) BUN (test code = 11 mg/dL 7-23 1168254605) GLUCOSE (test code = 175 mg/dL 70-110 H 4156179589) CREATININE (test code = 0.62 mg/dL 0.60-1.25 2705289736) CALCIUM (test code = 9.0 mg/dL 8.6-10.6 7529281034) eGFR Calculation mL/min/1.73m2 (Non-) (test code = 4732470531) eGFR Calculation mL/min/1.73m2 () (test code = 5105809718) JAMES (test code = JAMES) Association of [...] tests). Lab Interpretation Abnormal (test code = 39461-7) [facility] WITH [id number] 11:07:27 Test Item Value Reference Range Interpretation Comments WBC (test code = See_Comment H [Automated 3001-2) message] The sy stem which generated this result transmitted reference range : 4.20 - 10.70 10*3/?L. The reference range was not used to interpret this result as normal/abnormal . RBC (test code = See_Comment [Automated 602-8) message] The sy stem which generated this [...] RDW-SD (test code = 45.2 fL 38.5-51.6 92291-6) RDW-CV (test code = 16.9 % 12.1-15.4 H 788-0) PLT (test code = See_Comment H [Automated 777-3) message] The sy stem which generated this result transmitted reference range : 150 - 328 10*3/ ?L. The reference r torito was not used to interpret this result as normal/abnormal . MPV (test code = 8.1 fL 9.8-13.0 L 82453-4) NRBC/100 WBC (test See_Comment [Automat ed code = 5831895059) message] The system which generated this result transmitted reference range : 0.0 - 10.0 /100 WBCs. The refer ence range was not u sed to interpret th is result as normal/abnormal . NRBC x10^3 (test code <0.01 See_Comment [Auto mated = 6057306389) message] The s ystem which generated this result transmitted reference range : 10*3/?L. The reference range was not used to interpret this result as normal/abnormal . GRAN MAT (NEUT) % 72.8 % (test code = 770-8) IMM GRAN % (test code 0.60 % = 9199392630) LYMPH % (test code = 18.4 % 736-9) MONO % (test code = 5.7 % 5905-5) EOS % (test code = 1.8 % 713-8) BASO % (test code = 0.7 % 706-2) GRAN MAT x10^3(ANC) 8.23 10*3/uL 1.99-6.95 H (test code = 2928910449) IMM GRAN x10^3 (test 0.07 10*3/uL 0.00-0.06 H code = 8440437528) LYMPH x10^3 (test code 2.08 10*3/uL 1.09-3.23 = 731-0) MONO x10^3 (test code 0.65 10*3/uL 0.36-1.02 = 742-7) EOS x10^3 (test code = 0.20 10*3/uL 0.06-0.53 711-2) BASO x10^3 (test code 0.08 10*3/uL 0.01-0.09 = 704-7) Lab Interpretation Abnormal (test code = 85044-0) [facility]2020[facility] 06:03:38 Test Item Value Reference Range Interpretation Comments POCT GLU (test code = 5877082258) 75 mg/dL 70-110 Lab Interpretation (test code = Normal 35886-5) [facility]6, [id number] 00:01:00 Test Item Value Reference Range Interpretation Comments VIT B6 (test code = 13.1 nmol/L 20.0-125.0 L INTERPRE TIVE 17276-7) INFORMATION: Vi tamin B6 (Pyridoxal 5-Phosphate) Pyridoxal 5'-phosphate me asured in a specimen collected follo wing an 8-hour or overnight fast accurately clara cates vitamin B6 nutritional sta tus. Non-fasting spe cimen concentration reflects recent vitamin intake. This test was develo ped and its perform ance characteristics determined by [facility]. I t has not been cleare d or approved by the [place] Food and Drug Administration. This test was perfor med in a CLIA certifie d laboratory and is intended for cl inical purposes.Perfor med By: [address] [place] [address] [id number] Director: Namrata Klein MD Lab Interpretation Abnormal (test code = 31714-5) [facility] TIBIA FIBULA 2 VW [id number] 23:57:09 Tricompartmental knee joint osteoarthrosis.XR TIBIA FIBULA [...] Interpretation Comments POCT GLU (test code = 2251449436) 114 mg/dL 70-110 H Lab Interpretation (test code = Abnormal 85150-9) [facility] GLUCOSE (AUTOMATED)2020-12-16 20:12:00 Test Item Value Reference Range Interpretation Comments POCT GLU (test code = 0351822079) 105 mg/dL 70-110 Lab Interpretation (test code = Normal 47327-5) [facility] GLUCOSE (AUTOMATED)2020-12-16 14:44:00 Test Item Value Reference Range Interpretation Comments POCT GLU (test code = 5031297576) 153 mg/dL 70-110 H Lab Interpretation (test code = Abnormal 06650-4) [facility] METABOLIC PANEL (NA, K, CL, CO2, GLUCOSE, BUN, CREATININE, CA)2020-12-16 14:23:00 Test Item Value Reference Range Interpretation Comments NA (test code = 138 mmol/L 135-145 8468292715) K (test code = 3.4 mmol/L 3.5-5.0 L 1526739504) CL (test code = 100 mmol/L 98-108 0086436314) CO2 TOTAL (test code = 31 mmol/L 23-31 9693852322) AGAP (test code = 2-16 5081917179) BUN (test code = 11 mg/dL 7-23 0689715799) GLUCOSE (test code = 162 mg/dL 70-110 H 3111095705) CREATININE (test code = 0.64 mg/dL 0.60-1.25 8491701393) CALCIUM (test code = 8.9 mg/dL 8.6-10.6 2922340121) eGFR Calculation mL/min/1.73m2 (Non-) (test code = 5244911673) eGFR Calculation mL/min/1.73m2 () (test code = 0015488639) JAMES (test code = JAMES) Association of [...] tests). Lab Interpretation Abnormal (test code = 74888-6) [facility] WITH [id number] 14:05:00 Test Item Value Reference Range Interpretation Comments WBC (test code = See_Comment H [Automated 2731-2) message] The sy stem which generated this result transmitted reference range : 4.20 - 10.70 10*3/?L. The reference range was not used to interpret this result as normal/abnormal . RBC (test code = See_Comment [Automated 020-8) message] The sy stem which generated this [...] RDW-SD (test code = 45.4 fL 38.5-51.6 00469-7) RDW-CV (test code = 17.0 % 12.1-15.4 H 788-0) PLT (test code = See_Comment H [Automated 777-3) message] The sy stem which generated this result transmitted reference range : 150 - 328 10*3/ ?L. The reference r torito was not used to interpret this result as normal/abnormal . MPV (test code = 8.0 fL 9.8-13.0 L 34991-7) NRBC/100 WBC (test See_Comment [Automat ed code = 2935764729) message] The system which generated this result transmitted reference range : 0.0 - 10.0 /100 WBCs. The refer ence range was not u sed to interpret th is result as normal/abnormal . NRBC x10^3 (test code <0.01 See_Comment [Auto mated = 7537551883) message] The s ystem which generated this result transmitted reference range : 10*3/?L. The reference range was not used to interpret this result as normal/abnormal . GRAN MAT (NEUT) % 70.0 % (test code = 770-8) IMM GRAN % (test code 0.70 % = 0576096916) LYMPH % (test code = 20.5 % 736-9) MONO % (test code = 7.1 % 5905-5) EOS % (test code = 1.0 % 713-8) BASO % (test code = 0.7 % 706-2) GRAN MAT x10^3(ANC) 9.44 10*3/uL 1.99-6.95 H (test code = 2710199678) IMM GRAN x10^3 (test 0.09 10*3/uL 0.00-0.06 H code = 6331540314) LYMPH x10^3 (test code 2.76 10*3/uL 1.09-3.23 = 731-0) MONO x10^3 (test code 0.96 10*3/uL 0.36-1.02 = 742-7) EOS x10^3 (test code = 0.13 10*3/uL 0.06-0.53 711-2) BASO x10^3 (test code 0.10 10*3/uL 0.01-0.09 H = 704-7) Lab Interpretation Abnormal (test code = 03989-8) [facility] Culture - Peripheral # [id number] 13:01:00 Test Item Value Reference Range Interpretation Comments Blood Culture-Aerobic No organisms No growth Previo us (test code = 54403-0) isolated prelim inary verified result was Culture In Progress on 12/11/2020 at 100 1 CSTPrevious preliminary verified result was No growth a t 24 hours on 12/12/2020 at 070 1 CSTPrevious preliminary verified result was No growth a t 48 hours on 12/13/2020 at 070 1 CSTPrevious preliminary verified result was No growth a t 72 hours on 12/14/2020 at 070 1 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 Blood No organisms No growth Previous Culture-Anaerobic isolated preliminar y (test code = 87865-9) verifi ed result was Culture In Progress on 12/11/2020 at 100 1 CSTPrevious preliminary verified result was No growth a t 24 hours on 12/12/2020 at 070 1 CSTPrevious preliminary verified result was No growth a t 48 hours on 12/13/2020 at 070 1 CSTPrevious preliminary verified result was No growth a t 72 hours on 12/14/2020 at 070 1 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 Lab Interpretation Normal (test code = 45941-1) [facility] Culture - Peripheral # [id number] 13:01:00 Test Item Value Reference Range Interpretation Comments Blood Culture-Aerobic No organisms No growth Previo us (test code = 07235-7) isolated prelim inary verified result was Culture In Progress on 12/11/2020 at 100 1 CSTPrevious preliminary verified result was No growth a t 24 hours on 12/12/2020 at 070 1 CSTPrevious preliminary verified result was No growth a t 48 hours on 12/13/2020 at 070 1 CSTPrevious preliminary verified result was No growth a t 72 hours on 12/14/2020 at 070 1 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 Blood No organisms No growth Previous Culture-Anaerobic isolated preliminar y (test code = 50946-4) verifi ed result was Culture In Progress on 12/11/2020 at 100 1 CSTPrevious preliminary verified result was No growth a t 24 hours on 12/12/2020 at 070 1 CSTPrevious preliminary verified result was No growth a t 48 hours on 12/13/2020 at 070 1 CSTPrevious preliminary verified result was No growth a t 72 hours on 12/14/2020 at 070 1 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 Lab Interpretation Normal (test code = 21635-3) [facility] GLUCOSE (AUTOMATED)2020-12-16 04:01:00 Test Item Value Reference Range Interpretation Comments POCT GLU (test code = 3264439463) 156 mg/dL 70-110 H Lab Interpretation (test code = Abnormal 73727-0) [facility] GLUCOSE (AUTOMATED)2020-12-16 00:24:00 Test Item Value Reference Range Interpretation Comments POCT GLU (test code = 1497220417) 115 mg/dL 70-110 H Lab Interpretation (test code = Abnormal 79133-0) [facility] CHEST PULMONARY [id number] 23:34:55No pulmonary emboli. No interval change in [...] Interpretation Comments POCT GLU (test code = 4367755766) 140 mg/dL 70-110 H Lab Interpretation (test code = Abnormal 56581-8) [facility] 15:26:00 Test Item Value Reference Range Interpretation Comments MAGNESIUM (test code = 2686093696) 2.2 mg/dL 1.7-2.4 Lab Interpretation (test code = Normal 85732-7) [facility] GLUCOSE (AUTOMATED)2020-12-15 15:15:00 Test Item Value Reference Range Interpretation Comments POCT GLU (test code = 2416658186) 181 mg/dL 70-110 H Lab Interpretation (test code = Abnormal 01348-5) [facility] METABOLIC PANEL (NA, K, CL, CO2, GLUCOSE, BUN, CREATININE, CA)2020-12-15 13:07:00 Test Item Value Reference Range Interpretation Comments NA (test code = 136 mmol/L 135-145 5681105475) K (test code = 3.6 mmol/L 3.5-5.0 4350471544) CL (test code = 96 mmol/L 98-108 L 4995952678) CO2 TOTAL (test code = 29 mmol/L 23-31 8092181591) AGAP (test code = 2-16 4098622482) BUN (test code = 12 mg/dL 7-23 7640449877) GLUCOSE (test code = 183 mg/dL 70-110 H 8638612227) CREATININE (test code = 0.70 mg/dL 0.60-1.25 9103404883) CALCIUM (test code = 9.2 mg/dL 8.6-10.6 8188059792) eGFR Calculation mL/min/1.73m2 (Non-) (test code = 6389793204) eGFR Calculation mL/min/1.73m2 () (test code = 1733371374) JAMES (test code = JAMES) Association of [...] tests). Lab Interpretation Abnormal (test code = 61918-7) [facility] WITH [id number] 12:32:00 Test Item Value Reference Range Interpretation [...] RDW-SD (test code = 44.4 fL 38.5-51.6 04306-0) RDW-CV (test code = 17.7 % 12.1-15.4 H 788-0) PLT (test code = See_Comment H [Automated 777-3) message] The system which generated this result transmit ronan reference range : 150 - 328 10*3/ ?L. The reference range was not u sed to interpret th is result as normal/abnormal . MPV (test code = 8.1 fL 9.8-13.0 L 76961-7) NRBC/100 WBC (test See_Comment [Automat ed code = 9725685268) message] The system which generated this result transmit ronan reference range : 0.0 - 10.0 /100 WBCs. The reference range was not used to interpret this result as normal/abnormal . NRBC x10^3 (test code <0.01 See_Comment [Auto mated = 0874342970) message] The system which generated this result transmit ronan reference range : 10*3/?L. The reference range was not used to interpret this result as normal/abnormal . GRAN MAT (NEUT) % 74.5 % (test code = 770-8) IMM GRAN % (test code 0.70 % = 1627818789) LYMPH % (test code = 17.4 % 736-9) MONO % (test code = 6.8 % 5905-5) EOS % (test code = 0.2 % 713-8) BASO % (test code = 0.4 % 706-2) GRAN MAT x10^3(ANC) 11.99 10*3/uL 1.99-6.95 H (test code = 2915099787) IMM GRAN x10^3 (test 0.11 10*3/uL 0.00-0.06 H code = 3406900423) LYMPH x10^3 (test code 2.80 10*3/uL 1.09-3.23 = 731-0) MONO x10^3 (test code 1.10 10*3/uL 0.36-1.02 H = 742-7) EOS x10^3 (test code = 0.03 10*3/uL 0.06-0.53 L 711-2) BASO x10^3 (test code 0.06 10*3/uL 0.01-0.09 = 704-7) Lab Interpretation Abnormal (test code = 75702-0) [facility]2020-12-15 04:16:00 Test Item Value Reference Range Interpretation Comments POCT GLU (test code = 2202213579) 200 mg/dL 70-110 H Lab Interpretation (test code = Abnormal 98429-5) [facility]IT[facility] B1 (THIAMINE), WHOLE [id number] 00:30:00 Test Item Value Reference Range Interpretation Comments Vitamin B1, Whole 136 nmol/L 70-180 INTERPRETI VE INFORMATION: Blood (test code = Vitamin B 1, Whole Blood 98481-3) This assay júnior ures the concentration o f thiamine diphosphate (TD P), the primary active form of vitamin B1. Nick roximately 90 percent of v itamin B1 present in whol e blood is TDP. Thiamine a nd thiamine monoph osphate, which comprise the remaining 10 pe rcent, are not measured. T his test was developed a nd its performance characteristics determined by [facility]. I t has not been cleared or approved by the [place] Food and Drug Administration. This test was performed i n a CLIA certified labor atory and is intended for clinical purposes.Perfor med By: [facility] [address] [place], [place] [address]W aboratory Director: Namrata Klein MD [facility] GLUCOSE (AUTOMATED)2020-12-14 23:35:00 Test Item Value Reference Range Interpretation Comments POCT GLU (test code = 4905736916) 151 mg/dL 70-110 H Lab Interpretation (test code = Abnormal 70876-4) [facility] GLUCOSE (AUTOMATED)2020-12-14 19:19:00 Test Item Value Reference Range Interpretation Comments POCT GLU (test code = 2590604181) 193 mg/dL 70-110 H Lab Interpretation (test code = Abnormal 02120-9) [facility] GLUCOSE (AUTOMATED)2020-12-14 15:22:00 Test Item Value Reference Range Interpretation Comments POCT GLU (test code = 4902756429) 221 mg/dL 70-110 H Lab Interpretation (test code = Abnormal 45783-0) [facility] GLUCOSE (AUTOMATED)2020-12-14 02:37:00 Test Item Value Reference Range Interpretation Comments POCT GLU (test code = 9059809533) 210 mg/dL 70-110 H Lab Interpretation (test code = Abnormal 06925-0) [facility] GLUCOSE (AUTOMATED)2020-12-13 23:33:00 Test Item Value Reference Range Interpretation Comments POCT GLU (test code = 6320763142) 182 mg/dL 70-110 H Lab Interpretation (test code = Abnormal 69308-5) [facility] GLUCOSE (AUTOMATED)2020-12-13 18:09:00 Test Item Value Reference Range Interpretation Comments POCT GLU (test code = 3254197523) 150 mg/dL 70-110 H Lab Interpretation (test code = Abnormal 39986-4) [facility] METABOLIC PANEL (NA, K, CL, CO2, GLUCOSE, BUN, CREATININE, CA)2020-12-13 16:27:00 Test Item Value Reference Range Interpretation Comments NA (test code = 136 mmol/L 135-145 5300880407) K (test code = 3.7 mmol/L 3.5-5.0 7613447470) CL (test code = 96 mmol/L 98-108 L 9279566904) CO2 TOTAL (test code = 29 mmol/L 23-31 4473491121) AGAP (test code = 2-16 0893455275) BUN (test code = 6 mg/dL 7-23 L 7835024472) GLUCOSE (test code = 212 mg/dL 70-110 H 0526868450) CREATININE (test code = 0.61 mg/dL 0.60-1.25 2258400739) CALCIUM (test code = 9.5 mg/dL 8.6-10.6 5319523080) eGFR Calculation mL/min/1.73m2 (Non-) (test code = 7069300500) eGFR Calculation mL/min/1.73m2 () (test code = 8001546819) JAMES (test code = JAMES) Association of [...] tests). Lab Interpretation Abnormal (test code = 77907-3) [facility] WITH [id number] 16:10:00 Test Item Value Reference Range Interpretation [...] RDW-SD (test code = 43.3 fL 38.5-51.6 29843-7) RDW-CV (test code = 16.2 % 12.1-15.4 H 788-0) PLT (test code = See_Comment H [Automated 777-3) message] The sy stem which generated this result transmitted reference range : 150 - 328 10*3/ ?L. The reference r torito was not used to interpret this result as normal/abnormal . MPV (test code = 8.2 fL 9.8-13.0 L 79550-5) NRBC/100 WBC (test See_Comment [Automat ed code = 6110741101) message] The system which generated this result transmitted reference range : 0.0 - 10.0 /100 WBCs. The refer ence range was not u sed to interpret th is result as normal/abnormal . NRBC x10^3 (test code <0.01 See_Comment [Auto mated = 8689819666) message] The s ystem which generated this result transmitted reference range : 10*3/?L. The reference range was not used to interpret this result as normal/abnormal . GRAN MAT (NEUT) % 86.2 % (test code = 770-8) IMM GRAN % (test code 0.70 % = 1702395349) LYMPH % (test code = 10.2 % 736-9) MONO % (test code = 2.5 % 5905-5) EOS % (test code = 0.1 % 713-8) BASO % (test code = 0.3 % 706-2) GRAN MAT x10^3(ANC) 9.61 10*3/uL 1.99-6.95 H (test code = 0978959389) IMM GRAN x10^3 (test 0.08 10*3/uL 0.00-0.06 H code = 2910150655) LYMPH x10^3 (test code 1.14 10*3/uL 1.09-3.23 = 731-0) MONO x10^3 (test code 0.28 10*3/uL 0.36-1.02 L = 742-7) EOS x10^3 (test code = <0.03 0.06-0.53 L 711-2) BASO x10^3 (test code 0.03 10*3/uL 0.01-0.09 = 704-7) Lab Interpretation Abnormal (test code = 50623-4) [facility]2020-12[facility]13 14:16:00 Test Item Value Reference Range Interpretation Comments POCT GLU (test code = 4404126096) 236 mg/dL 70-110 H Lab Interpretation (test code = Abnormal 37151-6) [facility] COVID [id number] 04:58:00COVID DMT InterpretationInterpretation/Recommendations: Molecular NAAT Tests for [...] COVID-19 testing the patient has had at [facility], including molecular NAAT testing (more commonly known as PCR testing and Rapid ID Now testing) and antibody testing. It does not take into account any testingthat a patient has had outside of the [facility] medical record. [facility] LABORATORY SERVICESCOVID FteffjrTNWP-FgB-3 Rapid ID NOW (no units) ? ? Date ? Value ? 12/11/2020 ? Not Detected ? ? ? 11/16/2020 ? Not Detected ? ? ? 08/21/2020 ? Not Detected ? [facility] 2020-12-13 03:11:00 Test Item Value Reference Range Interpretation Comments POCT GLU (test code = 0355035330) 171 mg/dL 70-110 H Lab Interpretation (test code = Abnormal 08272-4) [facility] GLUCOSE (AUTOMATED)2020-12-13 00:00:00 Test Item Value Reference Range Interpretation Comments POCT GLU (test code = 3495338521) 118 mg/dL 70-110 H Lab Interpretation (test code = Abnormal 67006-9) [facility]2020-12-12 20:29:00 Test Item Value Reference Range Interpretation Comments POCT GLU (test code = 7112921985) 173 mg/dL 70-110 H Lab Interpretation (test code = Abnormal 12235-9) [facility] ABDOMEN [id number] 19:56:17 1. ?Hepatic steatosis. However, limited evaluation [...] main portal veinwasevaluated with color Doppler imaging. Real Time Trader images were obtainedfor the record. COMPARISON: Ultrasound [...] normal where visualized. SPLEEN:No images were obtained. Himb, Radiant Results Inft User - 12/12/2020 1:57 PM CSTEXAM: US ABDOMEN LIMITEDHISTORY: 70 years-old male with RUQ ultrasound to assess for common bileduct dilation .TECHNIQUE: Limited abdominal ultrasound focused on the liver, biliarysystem, pancreas, and spleen was performed. The main portal vein wasevaluated with color Doppler imaging. Real Time Trader images wereobtainedfor the record.COMPARISON: Ultrasound abdomen 11/17/2028. [...] reviewed this study and agree with the abovereport.[facility]2020-12-12 19:24:00 Test Item Value Reference Range Interpretation Comments POCT GLU (test code = 5987292832) 230 mg/dL 70-110 H Lab Interpretation (test code = Abnormal 19316-4) [facility] CHEST 1 [id number] 15:16:46 Low lung volumes with mild perihilar [...] reviewed this study and agree with theabove report.[facility]2020-12-12 14:34:00 Test Item Value Reference Range Interpretation Comments POCT GLU (test code = 3897515652) 225 mg/dL 70-110 H Lab Interpretation (test code = Abnormal 45208-9) [facility]INE [id number] 13:28:00 Test Item Value Reference Range Interpretation Comments URINE CULTURE (test < 10,000 CFU/mL mixed code = 630-4) aerobic organisms - suggests endogenous microbial contamination [facility]Basic Metabolic Panel (NA, K, CL, CO2, GLUCOSE, BUN, CREATININE, CA)2020-12-12 10:05:00 Test Item Value Reference Range Interpretation Comments NA (test code = 136 mmol/L 135-145 0992013958) K (test code = 3.5 mmol/L 3.5-5.0 1545446909) CL (test code = 100 mmol/L 98-108 7352512624) CO2 TOTAL (test code = 31 mmol/L 23-31 1083796680) AGAP (test code = 2-16 1213633290) BUN (test code = 7 mg/dL 7-23 2941585855) GLUCOSE (test code = 259 mg/dL 70-110 H 5976846822) CREATININE (test code = 0.63 mg/dL 0.60-1.25 9286551386) CALCIUM (test code = 8.5 mg/dL 8.6-10.6 L 1379412756) eGFR Calculation mL/min/1.73m2 (Non-) (test code = 5777935522) eGFR Calculation mL/min/1.73m2 () (test code = 9027298340) JAMES (test code = JAMES) Association of [...] tests). Lab Interpretation Abnormal (test code = 67307-2) [facility] CampusMagnesium [id number] 10:05:00 Test Item Value Reference Range Interpretation Comments MAGNESIUM (test code = 5221235606) 1.9 mg/dL 1.7-2.4 Lab Interpretation (test code = Normal 22019-4) [facility] with Bgcrnrbdxlqy2760-40-10 09:48:00 Test Item Value Reference Range Interpretation [...] RDW-SD (test code = 46.0 fL 38.5-51.6 02500-7) RDW-CV (test code = 16.1 % 12.1-15.4 H 788-0) PLT (test code = See_Comment H [Automated 777-3) message] The sy stem which generated this result transmitted reference range : 150 - 328 10*3/ ?L. The reference r torito was not used to interpret this result as normal/abnormal . MPV (test code = 8.6 fL 9.8-13.0 L 01548-0) NRBC/100 WBC (test See_Comment [Automat ed code = 9907522326) message] The system which generated this result transmitted reference range : 0.0 - 10.0 /100 WBCs. The refer ence range was not u sed to interpret th is result as normal/abnormal . NRBC x10^3 (test code <0.01 See_Comment [Auto mated = 4954368319) message] The s ystem which generated this result transmitted reference range : 10*3/?L. The reference range was not used to interpret this result as normal/abnormal . GRAN MAT (NEUT) % 70.2 % (test code = 770-8) IMM GRAN % (test code 0.30 % = 2441420775) LYMPH % (test code = 18.8 % 736-9) MONO % (test code = 5.0 % 5905-5) EOS % (test code = 5.2 % 713-8) BASO % (test code = 0.5 % 706-2) GRAN MAT x10^3(ANC) 6.05 10*3/uL 1.99-6.95 (test code = 8226479373) IMM GRAN x10^3 (test 0.03 10*3/uL 0.00-0.06 code = 8145400320) LYMPH x10^3 (test code 1.62 10*3/uL 1.09-3.23 = 731-0) MONO x10^3 (test code 0.43 10*3/uL 0.36-1.02 = 742-7) EOS x10^3 (test code = 0.45 10*3/uL 0.06-0.53 711-2) BASO x10^3 (test code 0.04 10*3/uL 0.01-0.09 = 704-7) Lab Interpretation Abnormal (test code = 20176-3) [facility]2020-12-12 03:42:00 Test Item Value Reference Range Interpretation Comments POCT GLU (test code = 196 mg/dL 70-110 H Notifi ed Provider 5686731712) Lab Interpretation (test Abnormal code = 16070-6) [facility] CampusFOLATE2021-03-02 02:24:00 Test Item Value Reference Range Interpretation Comments FOLATE SER (test code = 0818549501) 5.8 ng/mL 3.0-20.0 Lab Interpretation (test code = Normal 96614-5) [facility] CampusVITAMIN B12, [id number] 00:55:00 Test Item Value Reference Range Interpretation Comments VIT B12 (test code = 844 pg/mL 240-930 2252286958) JAMES (test code = JAMES) Biotin has been reported to cause a positive bias, interpret results relative to patient's use of biotin. Lab Interpretation (test Normal code = 00722-8) [facility]2020-12-12 00:14:00 Test Item Value Reference Range Interpretation Comments POCT GLU (test code = 5915959509) 164 mg/dL 70-110 H Lab Interpretation (test code = Abnormal 43686-8) [facility] CampusCREATINE [id number] 23:42:00 Test Item Value Reference Range Interpretation Comments CK (test code = 9997995032) <20 33-194 L Lab Interpretation (test code = Abnormal 87721-1) [facility] CampusTHYROID STIMULATING [id number] 23:17:00 Test Item Value Reference Range Interpretation Comments TSH (test code = See_Comment Biotin has been 5168220540) reported to cau se a negative bias, interpret resul ts relative to pat ient's use of biotin. [Automated mess age] The system [employer] h generated this result transmitted ref erence range: 0.45 - 4 .70 mIU/L. The refe rence range was not u sed to interpret this result as normal/abnor mal. Lab Interpretation (test Normal code = 29287-8) [facility] HIPS 3 VW [id number] 21:41:53No appreciable fracture lines. RL: 6200 ICAL [...] No osseous erosions.IMPRESSIONNo appreciable fracture lines.RL: [address] [facility] 20:00:00 Test Item Value Reference Range Interpretation Comments Procalcitonin (test 0.13 ng/mL <0.07 H code = 3903918632) JAMES (test code = JAMES) INTERPRETATION OF [...] lung abscess/empyema. For further information please refer to:[email or web address] Lab Interpretation Abnormal (test code = 50048-2) [facility]2020-12-11 19:07:00 Test Item Value Reference Range Interpretation Comments POCT GLU (test code = 3441794461) 274 mg/dL 70-110 H Lab Interpretation (test code = Abnormal 15048-6) [facility]2021-03-01 18:31:00 Test Item Value Reference Range Interpretation Comments MAGNESIUM (test code = 4064223946) 1.9 mg/dL 1.7-2.4 Lab Interpretation (test code = Normal 19110-3) [facility]FERRITIN [id number] 18:31:00 Test Item Value Reference Range Interpretation Comments FERRITIN (test code = 178.0 ng/mL 18.0-464.0 7434098126) JAMES (test code = JAMES) Biotin has been reported to cause a negative bias, interpret results relative to patient's use of biotin. Lab Interpretation (test Normal code = 72836-3) [facility] HEAD WO [id number] 14:36:47 No acute intracranial abnormality. Dilated ventricles [...] reviewed this study and agree with the abovereport.[facility]URINALYSIS2021-03-01 14:28:00 Test Item Value Reference Range Interpretation Comments APPEARANCE (test code = Clear Clear 9874039501) COLOR (test code = Yellow Yellow 7656689411) PH (test code = 4.8-8.0 4627688595) SP GRAVITY (test code = 1.003-1.030 3912155713) GLU U QUAL (test code = 500 mg/dL Normal A 0711446664) BLOOD (test code = Negative Negative 7709996037) KETONES (test code = 5 mg/dL Negative A 3587461976) PROTEIN (test code = Negative Negative 2887-8) UROBILIN (test code = Normal Normal 5590916722) BILIRUBIN (test code = Negative Negative 7636136442) NITRITE (test code = Negative Negative 1353390915) LEUK RYAN (test code = Negative Negative 9286231070) RBC/HPF (test code = See_Comment [Autom ated message] 4764265100) The system [employer] generated this result transmit ronan reference range : 0 - 3 HPF. The refe rence range was not u sed to interpret th is result as normal/abnormal . WBC/HPF (test code = See_Comment [Autom ated message] 4245200827) The system [employer] generated this result transmit ronan reference range : 0 - 5 HPF. The refe rence range was not u sed to interpret th is result as normal/abnormal . BACTERIA (test code = Negative Negative 9429831890) MUCOUS (test code = Slight Negative LPF A 1924014736) SQ EPITH (test code = HPF 9064564305) Lab Interpretation (test Abnormal code = 51564-1) [facility]OVID[facility] (ID NOW RAPID TESTING)2020-12-11 13:10:00 Test Item Value Reference Range Interpretation Comments SARS-CoV-2 Rapid ID NOW Not Detected Not Detected (test code = 51794-1) JAMES (test code = JAMES) ID NOW COVID-19 Assay is an isothermal nucleic acid amplification test intended for the qualitative detection of nucleic acid from SARS-CoV-2 viral RNA in nasopharyngeal (BURN TABLE OPERATOR) specimens. It is used under Emergency [...] indicated. Lab Interpretation Normal (test code = 92792-1) [facility]. METABOLIC PANEL (32449)2020-12-11 12:29:00 Test Item Value Reference Range Interpretation Comments NA (test code = 136 mmol/L 135-145 3711936959) K (test code = 3.5 mmol/L 3.5-5.0 1521869018) CL (test code = 95 mmol/L 98-108 L 4793781538) CO2 TOTAL (test code = 35 mmol/L 23-31 H 9473916571) AGAP (test code = 2-16 9401230757) BUN (test code = 9 mg/dL 7-23 3384454663) GLUCOSE (test code = 329 mg/dL 70-110 H 2958617038) CREATININE (test code = 0.72 mg/dL 0.60-1.25 6096077070) TOTAL BILI (test code = 0.6 mg/dL 0.1-1.6 1944532182) CALCIUM (test code = 9.0 mg/dL 8.6-10.6 9433896542) T PROTEIN (test code = 6.8 g/dL 6.3-8.2 3161671990) ALBUMIN (test code = 3.8 g/dL 3.5-5.0 7126316290) ALK PHOS (test code = 288 U/L 34-122 H 0057792082) ALTv (test code = 46 U/L 5-50 1742-6) AST(SGOT) (test code = 38 U/L 13-40 7579643645) eGFR Calculation mL/min/1.73m2 (Non-) (test code = 0190406578) eGFR Calculation mL/min/1.73m2 () (test code = 9861072202) JAMES (test code = JAMES) Association of [...] tests). Lab Interpretation Abnormal (test code = 12650-4) [facility] CampusLactic Acid Whole [id number] 12:23:00 Test Item Value Reference Range Interpretation Comments LACTIC ACID (test code = 2.09 mmol/L 0.50-2.20 3859759494) Lab Interpretation (test code = Normal 24101-7) [facility] WITH [id number] 12:17:00 Test Item Value Reference Range Interpretation Comments WBC (test code = See_Comment H [Automated 1668-2) message] The sy stem which generated this result transmitted reference range : 4.20 - 10.70 10*3/?L. The reference range was not used to interpret this result as normal/abnormal . RBC (test code = See_Comment [Automated 929-8) message] The sy stem which [...] RDW-SD (test code = 44.9 fL 38.5-51.6 38092-8) RDW-CV (test code = 15.9 % 12.1-15.4 H 788-0) PLT (test code = See_Comment H [Automated 777-3) message] The sy stem which generated this result transmitted reference range : 150 - 328 10*3/ ?L. The reference r torito was not used to interpret this result as normal/abnormal . MPV (test code = 8.3 fL 9.8-13.0 L 97303-4) NRBC/100 WBC (test See_Comment [Automat ed code = 0184560769) message] The system which generated this result transmitted reference range : 0.0 - 10.0 /100 WBCs. The refer ence range was not u sed to interpret th is result as normal/abnormal . NRBC x10^3 (test code <0.01 See_Comment [Auto mated = 4752778071) message] The s ystem which generated this result transmitted reference range : 10*3/?L. The reference range was not used to interpret this result as normal/abnormal . GRAN MAT (NEUT) % 77.9 % (test code = 770-8) IMM GRAN % (test code 0.50 % = 7939422995) LYMPH % (test code = 12.2 % 736-9) MONO % (test code = 5.2 % 5905-5) EOS % (test code = 3.7 % 713-8) BASO % (test code = 0.5 % 706-2) GRAN MAT x10^3(ANC) 9.57 10*3/uL 1.99-6.95 H (test code = 3807888199) IMM GRAN x10^3 (test 0.06 10*3/uL 0.00-0.06 code = 6826974410) LYMPH x10^3 (test code 1.50 10*3/uL 1.09-3.23 = 731-0) MONO x10^3 (test code 0.64 10*3/uL 0.36-1.02 = 742-7) EOS x10^3 (test code = 0.46 10*3/uL 0.06-0.53 711-2) BASO x10^3 (test code 0.06 10*3/uL 0.01-0.09 = 704-7) Lab Interpretation Abnormal (test code = 51686-9) [facility] ONLY COVID [id number] 18:43:00COVID DMT InterpretationInterpretation/Recommendations: Molecular NAAT Test Results [...] a nasopharyngeal sample, there is approximately a xyd-jp-twadx chance that the patient was infected and [...] based upon aggregate data pooled from the [facility] medical recordincluding both current and prior COVID-19 related testing results for the following tests offered atour institution:A. Tests for the Identification of SARS-CoV-2 RNA:SARS-CoV-2 PCR assays including [place] Aptima, [place] Fusion, Barrett RealTime, and [employer] Xpert Xpress. SARS-CoV-2 Rapid ID NOW by the ID NOW assay. ? B. Tests for the Identification of SARS-CoV-2 Antibodies: Chemiluminescent immunoassays including Access SARS-CoV-2 IgM (DXI 600), [employer] Cxot-GEYO-FcI-2 IgG (Vitros 5600 and Vitros 3600), and Barrett SARS-CoV-2 IgG (FARMWORKER FRUIT I System). These interpretation comments assume that only the above testing was utilized and that the approved acceptable specimen type(s) were used for a given test. These interpretations are autopopulated into IQMS based on computerized algorithms matching an interpretation code number to the patient's set of test results. While a clinical pathologist evaluates the combinations for clinical accuracy, clinical correlation is recommended as it may not take into account very remote prior testing. Furthermore, it does not consider testing a patient may have had outside of the [facility] system. Additionally, it should be noted that the computerized algorithm treats the results for PCR testing and Rapid ID NOW testing (also PCR) synonymously, and thus, refers to both testing methodologies as PCR tests. Given that the sensitivity of [facility]'s Rapid ID NOW testing platform is analogous [...] pathogen panel may be beneficialin this setting. [facility] LABORATORY SERVICESCOVID YrgsflsDSSR-YoP-0 Rapid ID NOW (no units) ? ? Date ? Value ? 08/21/2020 ? Not Detected ? [facility]Un[facility]2020-08-23 18:25:00 Test Item Value Reference Range Interpretation Comments POCT GLU (test code = 1763011868) 297 mg/dL 70-110 H Lab Interpretation (test code = Abnormal 73257-9) [facility] GLUCOSE (AUTOMATED)2020-08-23 14:25:00 Test Item Value Reference Range Interpretation Comments POCT GLU (test code = 9408833097) 181 mg/dL 70-110 H Lab Interpretation (test code = Abnormal 60796-6) [facility] Metabolic Panel (NA, K, CL, CO2, GLUCOSE, BUN, CREATININE, CA)2020-08-23 11:45:00 Test Item Value Reference Range Interpretation Comments NA (test code = 132 mmol/L 135-145 L 6732106139) K (test code = 4.0 mmol/L 3.5-5 7279994455) CL (test code = 96 mmol/L 98-108 L 5437551060) CO2 TOTAL (test code = 33 mmol/L 23-31 H 9509041187) AGAP (test code = 2-16 9944369726) BUN (test code = 9 mg/dL 7-23 2448753370) GLUCOSE (test code = 176 mg/dL 70-110 H 4660095495) CREATININE (test code = 0.66 mg/dL 0.6-1.25 0789316394) CALCIUM (test code = 8.5 mg/dL 8.6-10.6 L 8650107601) eGFR Calculation mL/min/1.73m2 (Non-) (test code = 7651713266) eGFR Calculation mL/min/1.73m2 () (test code = 7614905338) JAMES (test code = JAMES) Association of [...] tests). Lab Interpretation Abnormal (test code = 44239-0) [facility] CampusMagnesium Loulc8245-11-00 11:45:00 Test Item Value Reference Range Interpretation Comments MAGNESIUM (test code = 2755041541) 2.0 mg/dL 1.7-2.4 Lab Interpretation (test code = Normal 12850-6) [facility] with Sykceeecjxsl4346-04-41 11:38:00 Test Item Value Reference Range Interpretation Comments WBC (test code = See_Comment [Automated 9081-2) message] The sy stem which generated this result transmitted reference range : 4.20 - 10.70 10*3/?L. The reference range was not used to interpret this result as normal/abnormal . RBC (test code = See_Comment [Automated 854-6) message] The sy stem which generated this [...] RDW-SD (test code = 41.8 fL 38.5-51.6 62515-1) RDW-CV (test code = 14.3 % 12.1-15.4 788-0) PLT (test code = See_Comment H [Automated 777-3) message] The sy stem which generated this result transmitted reference range : 150 - 328 10*3/ ?L. The reference r torito was not used to interpret this result as normal/abnormal . MPV (test code = 8.0 fL 9.8-13 L 05065-9) NRBC/100 WBC (test See_Comment [Automat ed code = 4858742953) message] The system which generated this result transmitted reference range : 0.0 - 10.0 /100 WBCs. The refer ence range was not u sed to interpret th is result as normal/abnormal . NRBC x10^3 (test code <0.01 See_Comment [Auto mated = 2447257011) message] The s ystem which generated this result transmitted reference range : 10*3/?L. The reference range was not used to interpret this result as normal/abnormal . GRAN MAT (NEUT) % 61.5 % (test code = 770-8) IMM GRAN % (test code 2.00 % = 9712341102) LYMPH % (test code = 25.5 % 736-9) MONO % (test code = 6.3 % 5905-5) EOS % (test code = 3.7 % 713-8) BASO % (test code = 1.0 % 706-2) GRAN MAT x10^3(ANC) 5.29 10*3/uL 1.99-6.95 (test code = 0651349477) IMM GRAN x10^3 (test 0.17 10*3/uL 0-0.06 H code = 8232354928) LYMPH x10^3 (test code 2.19 10*3/uL 1.09-3.23 = 731-0) MONO x10^3 (test code 0.54 10*3/uL 0.36-1.02 = 742-7) EOS x10^3 (test code = 0.32 10*3/uL 0.06-0.53 711-2) BASO x10^3 (test code 0.09 10*3/uL 0.01-0.09 = 704-7) Lab Interpretation Abnormal (test code = 32939-3) [facility] GLUCOSE (AUTOMATED)2020-08-23 10:22:00 Test Item Value Reference Range Interpretation Comments POCT GLU (test code = 2380552854) 164 mg/dL 70-110 H Lab Interpretation (test code = Abnormal 92274-9) [facility] GLUCOSE (AUTOMATED)2020-08-23 05:56:00 Test Item Value Reference Range Interpretation Comments POCT GLU (test code = 9959848373) 242 mg/dL 70-110 H Lab Interpretation (test code = Abnormal 39059-6) [facility] GLUCOSE (AUTOMATED)2020-08-23 03:02:00 Test Item Value Reference Range Interpretation Comments POCT GLU (test code = 3364564523) 210 mg/dL 70-110 H Lab Interpretation (test code = Abnormal 14896-8) [facility] GLUCOSE (AUTOMATED)2020-08-22 23:40:00 Test Item Value Reference Range Interpretation Comments POCT GLU (test code = 6568163525) 267 mg/dL 70-110 H Lab Interpretation (test code = Abnormal 88111-3) [facility] GLUCOSE (AUTOMATED)2020-08-22 19:08:00 Test Item Value Reference Range Interpretation Comments POCT GLU (test code = 2585365171) 191 mg/dL 70-110 H Lab Interpretation (test code = Abnormal 36502-6) [facility] GLUCOSE (AUTOMATED)2020-08-22 13:50:00 Test Item Value Reference Range Interpretation Comments POCT GLU (test code = 8372320960) 174 mg/dL 70-110 H Lab Interpretation (test code = Abnormal 27271-6) [facility]URINE [id number] 12:59:00 Test Item Value Reference Range Interpretation Comments URINE CULTURE (test No aerobic growth (< code = 630-4) 1000 CFU/mL) [facility] with Nmuqpxrjfyur7266-28-36 11:28:00 Test Item Value Reference Range Interpretation [...] RDW-SD (test code = 42.5 fL 38.5-51.6 49249-4) RDW-CV (test code = 14.5 % 12.1-15.4 788-0) PLT (test code = See_Comment H [Automated 777-3) message] The sy stem which generated this result transmitted reference range : 150 - 328 10*3/ ?L. The reference r torito was not used to interpret this result as normal/abnormal . MPV (test code = 8.0 fL 9.8-13 L 40127-2) NRBC/100 WBC (test See_Comment [Automat ed code = 2067082442) message] The system which generated this result transmitted reference range : 0.0 - 10.0 /100 WBCs. The refer ence range was not u sed to interpret th is result as normal/abnormal . NRBC x10^3 (test code <0.01 See_Comment [Auto mated = 0262258848) message] The s ystem which generated this result transmitted reference range : 10*3/?L. The reference range was not used to interpret this result as normal/abnormal . GRAN MAT (NEUT) % 69.1 % (test code = 770-8) IMM GRAN % (test code 2.20 % = 7392027521) LYMPH % (test code = 20.9 % 736-9) MONO % (test code = 5.8 % 5905-5) EOS % (test code = 1.0 % 713-8) BASO % (test code = 1.0 % 706-2) GRAN MAT x10^3(ANC) 6.51 10*3/uL 1.99-6.95 (test code = 3464587261) IMM GRAN x10^3 (test 0.21 10*3/uL 0-0.06 H code = 6354513746) LYMPH x10^3 (test code 1.97 10*3/uL 1.09-3.23 = 731-0) MONO x10^3 (test code 0.55 10*3/uL 0.36-1.02 = 742-7) EOS x10^3 (test code = 0.09 10*3/uL 0.06-0.53 711-2) BASO x10^3 (test code 0.09 10*3/uL 0.01-0.09 = 704-7) BASO STIPPLING (test Present A code = 703-9) BANDS (test code = Increased A 9345770545) TOXIC CHANGES (test Present A code = 803-7) Lab Interpretation Abnormal (test code = 13421-9) [facility] Metabolic Panel (NA, K, CL, CO2, GLUCOSE, BUN, CREATININE, CA)2020-08-22 11:12:00 Test Item Value Reference Range Interpretation Comments NA (test code = 135 mmol/L 135-145 0428365078) K (test code = 3.6 mmol/L 3.5-5 2458460160) CL (test code = 99 mmol/L 98-108 1330569955) CO2 TOTAL (test code = 31 mmol/L 23-31 7975846404) AGAP (test code = 2-16 5594031156) BUN (test code = 9 mg/dL 7-23 5042386829) GLUCOSE (test code = 198 mg/dL 70-110 H 7516141798) CREATININE (test code = 0.72 mg/dL 0.6-1.25 5597423854) CALCIUM (test code = 8.3 mg/dL 8.6-10.6 L 2319089562) eGFR Calculation mL/min/1.73m2 (Non-) (test code = 1091914839) eGFR Calculation mL/min/1.73m2 () (test code = 1154177576) JAMES (test code = JAMES) Association of [...] tests). Lab Interpretation Abnormal (test code = 69865-1) [facility] CampusMagnesium Dbanw7411-78-05 11:12:00 Test Item Value Reference Range Interpretation Comments MAGNESIUM (test code = 8673708024) 2.0 mg/dL 1.7-2.4 Lab Interpretation (test code = Normal 30976-5) [facility]Total Cholesterol, Triglycerides, HDL) - Anvqhyu2428-98-25 11:12:00 Test Item Value Reference Range Interpretation Comments CHOL (test code = 155 mg/dL 120-200 2402444494) HDL (test code = 42 mg/dL >40 9426018206) HDLC RATIO (test code = See_Comment [Au tomated message] 3760211137) The system [employer] generated this result transmit ronan reference range : <=5.0. The refe rence range was not u sed to interpret th is result as normal/abnormal . TRIG (test code = 186 mg/dL 30-170 H 7004706865) LDL CHOL (test code = 76 mg/dL See_Comment [Auto mated message] 12748-4) The system [employer] generated this result transmit ronan reference range : <=160. The refe rence range was not u sed to interpret th is result as normal/abnormal . VLDL (test code = 37 mg/dL 5-60 7806050100) Lab Interpretation (test Abnormal code = 38458-1) [facility] CampusHEPATIC FUNCTION PANEL (48060) (ALB,T.PRO,BILI T,BU/BC,ALT,AST,ALK PHOS)2020-08-22 11:12:00 Test Item Value Reference Range Interpretation Comments TOTAL BILI (test code = 3455251916) 0.6 mg/dL 0.1-1.1 BILI UNCON (test code = 5514011594) 0.2 mg/dL 0.1-1.1 BILI CONJ (test code = 5999545447) 0.0 mg/dL 0-0.3 T PROTEIN (test code = 5580411011) 6.0 g/dL 6.3-8.2 L ALBUMIN (test code = 1401639051) 2.8 g/dL 3.5-5 L ALK PHOS (test code = 8542421575) 222 U/L 34-122 H ALTv (test code = 1742-6) 27 U/L 5-50 AST(SGOT) (test code = 4631843521) 30 U/L 13-40 Lab Interpretation (test code = Abnormal 89276-2) [facility]SE (AUT[facility]ATED)2020-08-22 10:11:00 Test Item Value Reference Range Interpretation Comments POCT GLU (test code = 5779910163) 196 mg/dL 70-110 H Lab Interpretation (test code = Abnormal 80404-3) [facility] GLUCOSE (AUTOMATED)2020-08-22 07:15:00 Test Item Value Reference Range Interpretation Comments POCT GLU (test code = 5392917507) 183 mg/dL 70-110 H Lab Interpretation (test code = Abnormal 45231-6) [facility] GLUCOSE (AUTOMATED)2020-08-22 02:30:00 Test Item Value Reference Range Interpretation Comments POCT GLU (test code = 5471969886) 295 mg/dL 70-110 H Lab Interpretation (test code = Abnormal 72504-4) [facility] GLUCOSE (AUTOMATED)2020-08-21 23:46:00 Test Item Value Reference Range Interpretation Comments POCT GLU (test code = 4554985768) 258 mg/dL 70-110 H Lab Interpretation (test code = Abnormal 79344-1) [facility] CampusC-REACTIVE TLREBWG4482-58-65 18:50:00 Test Item Value Reference Range Interpretation Comments CRP (test code = 9063402955) 15.5 mg/dL <0.8 H Lab Interpretation (test code = Abnormal 87886-8) [facility] GLUCOSE (AUTOMATED)2020-08-21 18:21:00 Test Item Value Reference Range Interpretation Comments POCT GLU (test code = 9967084339) 297 mg/dL 70-110 H Lab Interpretation (test code = Abnormal 69868-9) [facility] CampusETHANOL2020-11-09 16:24:00 Test Item Value Reference Range Interpretation Comments ALCOHOL (test code = <10 mg/dL 1699391413) JAMES (test code = Toxic Greater than or JAMES) equal to 80 mg/dL. NOTE: Whole blood values are approximately 10% to 15% lower than serum and plasma. [facility] CampusGALV/CLC ONLY - URINE DRUG (IMMUNOASSAY) - 4 ER [id number] 15:36:00 Test Item Value Reference Range Interpretation Comments AMPHET (test code = Negative Negative 1366652891) Cocaine Metabolite (test Negative Negative code = 7411084151) OPIATES (test code = Presumptive Positive Negative A 0684967333) THC (test code = Negative Negative 3083802881) JAMES (test code = JAMES) Urine Drug Cutoff Ranges Amphetamine: ? 1,000 ng/mLCocaine: ? 150 ng/mLOpiates: ? 300 ng/mLCannabinoids: ?50 ng/mL The results are to be used only for medical (i.e., treatment) purposes. Unconfirmed screening results must not be used for non-medical purposes (e.g., employment testing, legal testing). Lab Interpretation (test Abnormal code = 84599-6) [facility] CampusGALV ONLY - SYPHILIS IGG/[id number] 15:04:00 Test Item Value Reference Range Interpretation Comments Syphilis IgG/IgM (test Non-reactive Non-reactive code = 82594-1) JAMES (test code = JAMES) Non-reactive - No serologic evidence of T. pallidum infection. Cannot exclude incubating or early syphilis. Submit a second specimen in 2-4 weeks if syphilis is clinically suspected. Equivocal - Further testing to follow. Reactive - Further testing to follow. Lab Interpretation (test Normal code = 70746-4) [facility] CampusUrinalysis2020-11-09 14:52:00 Test Item Value Reference Range Interpretation Comments APPEARANCE (test code = Clear Clear 3852113065) COLOR (test code = Yellow Yellow 3475413450) PH (test code = 4.8-8.0 9705060894) SP GRAVITY (test code = 1.003-1.030 0643206794) GLU U QUAL (test code = 500 mg/dL Normal A 8309157475) BLOOD (test code = Negative Negative 2456186625) KETONES (test code = 20 mg/dL Negative A 5903322114) PROTEIN (test code = Negative Negative 2887-8) UROBILIN (test code = Normal Normal 6713355591) BILIRUBIN (test code = Negative Negative 3290983118) NITRITE (test code = Negative Negative 6952891745) LEUK RYAN (test code = Negative Negative 8299229681) RBC/HPF (test code = <1 See_Comment [Autom ated message] 8860548760) The system [employer] generated this result transmit ronan reference range : 0 - 3 HPF. The refe rence range was not u sed to interpret th is result as normal/abnormal . WBC/HPF (test code = See_Comment [Autom ated message] 5566308236) The system [employer] generated this result transmit ronan reference range : 0 - 5 HPF. The refe rence range was not u sed to interpret th is result as normal/abnormal . BACTERIA (test code = Negative Negative 6625547579) MUCOUS (test code = Slight Negative LPF A 4986575950) Lab Interpretation (test Abnormal code = 39460-4) [facility] CampusACTIVATED PARTIAL THRMPLAS [id number] 13:45:00 Test Item Value Reference Range Interpretation Comments APTT Patient (test code = See_Comment [ Automated message] 3173-2) The system [employer] generated this result transmitted ref erence range: 26 - 36 Seconds. The re ference range was not u sed to interpret this result as normal/abnor mal. Lab Interpretation (test Normal code = 56079-9) [facility] CampusPOCT GLUCOSE (AUTOMATED)2020-08-21 13:45:00 Test Item Value Reference Range Interpretation Comments POCT GLU (test code = 1504047010) 246 mg/dL 70-110 H Lab Interpretation (test code = Abnormal 30259-5) [facility] CampusHIV 1/2 AG-AB WITH [id number] 12:32:00 Test Item Value Reference Range Interpretation Comments HIV Negative Negative Semi-quantitative (test code = 87512-7) JAMES (test code = Non-reactive for HIV-1 JAMES) antigen and HIV-1/HIV-2 antibodies. ?No laboratory evidence of HIV infection. ?Repeat in 2-4 weeks if acute HIV infection is suspected. [facility] CampusCBC WITH [id number] 12:18:00 Test Item Value Reference Range Interpretation Comments WBC (test code = See_Comment [Automated 2956-2) message] The sy stem which generated this result transmitted reference range : 4.20 - 10.70 10*3/?L. The reference range was not used to interpret this result as normal/abnormal . RBC (test code = See_Comment [Automated 268-2) message] The sy stem which generated this [...] RDW-SD (test code = 44.4 fL 38.5-51.6 40709-8) RDW-CV (test code = 14.5 % 12.1-15.4 788-0) PLT (test code = See_Comment H [Automated 777-3) message] The sy stem which generated this result transmitted reference range : 150 - 328 10*3/ ?L. The reference r torito was not used to interpret this result as normal/abnormal . MPV (test code = 8.5 fL 9.8-13 L 98066-2) NRBC/100 WBC (test See_Comment [Automat ed code = 9627881055) message] The system which generated this result transmitted reference range : 0.0 - 10.0 /100 WBCs. The refer ence range was not u sed to interpret th is result as normal/abnormal . NRBC x10^3 (test code <0.01 See_Comment [Auto mated = 9225001992) message] The s ystem which generated this result transmitted reference range : 10*3/?L. The reference range was not used to interpret this result as normal/abnormal . GRAN MAT (NEUT) % 90.4 % (test code = 770-8) IMM GRAN % (test code 1.30 % = 0546329151) LYMPH % (test code = 7.1 % 736-9) MONO % (test code = 0.5 % 5905-5) EOS % (test code = 0.1 % 713-8) BASO % (test code = 0.6 % 706-2) GRAN MAT x10^3(ANC) 7.74 10*3/uL 1.99-6.95 H (test code = 6639406671) IMM GRAN x10^3 (test 0.11 10*3/uL 0-0.06 H code = 6838122346) LYMPH x10^3 (test code 0.61 10*3/uL 1.09-3.23 L = 731-0) MONO x10^3 (test code 0.04 10*3/uL 0.36-1.02 L = 742-7) EOS x10^3 (test code = <0.03 0.06-0.53 L 711-2) BASO x10^3 (test code 0.05 10*3/uL 0.01-0.09 = 704-7) POLYCHROMASIA (test 2+ See_Comment [Automa ronan code = 72321-2) message] The system which generated this result transmitted reference range : 2+. The referen ce range was not u sed to interpret th is result as normal/abnormal . BANDS (test code = Increased A 7059200388) Lab Interpretation Abnormal (test code = 46443-1) [facility]2020[facility] 11:48:00 Test Item Value Reference Range Interpretation Comments Procalcitonin (test 0.36 ng/mL <0.07 H code = 0184642968) JAMES (test code = JAMES) INTERPRETATION OF [...] lung abscess/empyema. For further information please refer to:[email or web address] Lab Interpretation Abnormal (test code = 87621-0) [facility] CampusLACTATE [id number] 10:53:00 Test Item Value Reference Range Interpretation Comments LDH (test code = 1977888444) 351 U/L 300-600 Lab Interpretation (test code = Normal 58836-4) [facility] CampusSEDIMENTATION [id number] 10:07:00 Test Item Value Reference Range Interpretation Comments ESR (test code = See_Comment H [Automated message] 8560962762) The system [employer] generated this result transmitted ref erence range: 0 - 10 m m/HR. The reference r torito was not used to interpret this result as normal/abnor mal. Lab Interpretation (test Abnormal code = 19190-7) [facility]POCT GLUCOSE (AUTOMATED)2020-08-21 09:45:00 Test Item Value Reference Range Interpretation Comments POCT GLU (test code = 1320868095) 287 mg/dL 70-110 H Lab Interpretation (test code = Abnormal 75341-7) [facility] CampusGlycosylated Hemoglobin (A1C)2020-08-21 09:29:00 Test Item Value Reference Range Interpretation Comments HGB A1C (test code = 4548-4) 9.8 % 4-6 H Lab Interpretation (test code = Abnormal 73825-3) [facility] CampusCOVID-19 (ID NOW RAPID TESTING)2020-08-21 09:13:00 Test Item Value Reference Range Interpretation Comments SARS-CoV-2 Rapid ID NOW Not Detected Not Detected (test code = 89247-8) JAMES (test code = JAMES) ID NOW COVID-19 Assay is an isothermal nucleic acid amplification test intended for the qualitative detection of nucleic acid from SARS-CoV-2 viral RNA in nasopharyngeal (BURN TABLE OPERATOR) specimens. It is used under Emergency [...] indicated. Lab Interpretation Normal (test code = 97702-7) [facility] CampusProthrombin Time / [id number] 08:59:00 Test Item Value Reference Range Interpretation Comments PROTIME PATIENT (test See_Comment H [Auto mated message] code = 5964-2) The system [employer] generated this result transmitted ref erence range: 10.1 - 1 2.6 Seconds. The reference range was not used to int erpret this result as normal/abnormal . INR (test code = 6301-6) Nor mal INR <1.1; Warfarin Therap eutic range 2.0 to 3. 0 or 2.5 to 3.5, dep ending upon the indica tions. Lab Interpretation (test Abnormal code = 34230-4) [facility] CampusaPTT2020-11-09 08:59:00 Test Item Value Reference Range Interpretation Comments APTT Patient (test code = See_Comment [ Automated message] 3173-2) The system [employer] generated this result transmitted ref erence range: 26 - 36 Seconds. The re ference range was not u sed to interpret this result as normal/abnor mal. Lab Interpretation (test Normal code = 87115-2) [facility] (NA, K, CL, CO2, GLUCOSE, BUN, CREATININE, CA)2020-08-21 08:52:00 Test Item Value Reference Range Interpretation Comments NA (test code = 136 mmol/L 135-145 7927474023) K (test code = 4.3 mmol/L 3.5-5 8503416961) CL (test code = 104 mmol/L 98-108 9638433550) CO2 TOTAL (test code = 24 mmol/L 23-31 5294157727) AGAP (test code = 2-16 6806137903) BUN (test code = 8 mg/dL 7-23 9128784364) GLUCOSE (test code = 308 mg/dL 70-110 H 6969298935) CREATININE (test code = 0.72 mg/dL 0.6-1.25 3972021243) CALCIUM (test code = 7.8 mg/dL 8.6-10.6 L 0948665104) eGFR Calculation mL/min/1.73m2 (Non-) (test code = 2235051442) eGFR Calculation mL/min/1.73m2 () (test code = 5042063264) JAMES (test code = JAMES) Association of [...] tests). Lab Interpretation Abnormal (test code = 32336-7) [facility] CampusHEPATIC FUNCTION PANEL (54577) (ALB,T.PRO,BILI T,BU/BC,ALT,AST,ALK PHOS)2020-08-21 08:52:00 Test Item Value Reference Range Interpretation Comments TOTAL BILI (test code = 1393743844) 0.8 mg/dL 0.1-1.1 BILI UNCON (test code = 4383236145) 0.3 mg/dL 0.1-1.1 BILI CONJ (test code = 8190385188) 0.0 mg/dL 0-0.3 T PROTEIN (test code = 4744447188) 5.7 g/dL 6.3-8.2 L ALBUMIN (test code = 7484952048) 2.7 g/dL 3.5-5 L ALK PHOS (test code = 3164514602) 245 U/L 34-122 H ALTv (test code = 1742-6) 37 U/L 5-50 AST(SGOT) (test code = 0435750291) 43 U/L 13-40 H Lab Interpretation (test code = Abnormal 15069-9) [facility]
--- NOTE | 2022-12-31 22:53 | ER ---
Nurse's Notes [facility] Name: Kiel Ngo Age: 72 yrs Sex: Male : 1950 Arrival Date: 12/31/2022 Time: 21:30 Bed 15 Private MD: Diagnosis: Constipation, unspecified;Tachycardia, unspecified Presentation: 12/31 21:35 Chief complaint: EMS states: Toned out for constipation, pt states last BM was 1 week ll3 ago, pt reports being out of pain medicine for chronic pain for past week. Coronavirus screen: Vaccine status: Patient reports being unvaccinated. At this time, the client does not indicate any symptoms associated with coronavirus-19. Ebola Screen: No symptoms or risks identified at this time. Initial Sepsis Screen: Does the patient meet any 2 criteria? HR > 90 bpm. Does the patient have a suspected source of infection? No. Patient's initial sepsis screen is negative. Risk Assessment: Do you want to hurt yourself or someone else? Patient reports no desire to harm self or others. Onset of symptoms was December 24, 2022. Care prior to arrival: None. 21:35 Method Of Arrival: EMS: [facility] ll3 21:35 Acuity: JOZEF 3 ll3 Historical: - Allergies: 21:38 Demerol; ll3 21:38 metformin; ll3 21:38 Morphine; ll3 - Home Meds: 21:38 hydromorphone 4 mg Oral tab 1 tab three times a day [Active]; Klonopin 2 mg Oral TbDi 2 ll3 tabs 4 times a day [Active]; - PMHx: 21:38 Atrial fibrillation; chronic back pain; Chronic right leg pain; neuropathy; ll3 - PSHx: 21:38 back sx; PANCREAS SX; R. Ankle SX; ll3 - Immunization history:: Client reports having NOT received the Covid vaccine. - Social history:: Smoking status: Patient denies any tobacco usage or history of. Screenin:28 [facility] ED Fall Risk Assessment (Adult) History of falling in the last 3 months, ll3 including since admission No falls in past 3 months (0 pts) Confusion or Disorientation No (0 pts) Intoxicated or Sedated No (0 pts) Impaired Gait Yes (1 pt) Mobility Assist Device Used Yes (1 pt) Altered Elimination No (0 pt) Score/Fall Risk Level 0 - 2 = Low Risk Oriented to surroundings, Maintained a safe environment, Educated pt \T\ family on fall prevention, incl call for assistance when getting out of bed. Abuse screen: Denies threats or abuse. Denies injuries from another. Nutritional screening: No deficits noted. Tuberculosis screening: No symptoms or risk factors identified. Assessment: 21:40 General: Appears uncomfortable, Behavior is calm, cooperative. Pain: Complains of pain ll3 in buttocks Pain does not radiate. Pain currently is 10 out of 10 on a pain scale. GI: Abdomen is round distended, Last BM 1 week ago Reports constipation. Derm: Skin is pink, warm \T\ dry. Vital Signs: 21:35 BP 159 / 99; Pulse 146; Resp 20; Temp 98.1(O); Pulse Ox 97% on R/A; Weight 83.91 kg ll3 (R); Height 5 ft. 11 in. (R); 23:00 BP 165 / 92; Pulse 147; Resp 20; Pulse Ox 96% on R/A; ll3 21:35 Body Mass Index 25.80 (83.91 kg, 180.34 cm) ll3 ED Course: 21:30 Patient arrived in ED. as6 21:35 Rosa Harrison MD is Attending Physician. sp3 21:37 Triage completed. ll3 21:38 Arm band placed on Patient placed in an exam room, on a stretcher, on rn cardiac, ll3 on pulse oximetry. 21:49 Katie Shi, RN is Primary Nurse. ll3 21:49 EKG completed in triage. Results shown to MD. ll3 22:45 Abdomen 1 View XRAY In Process Unspecified. EDMS 23:29 Patient has correct armband on for positive identification. Placed in gown. Bed in low ll3 position. Call light in reach. Side rails up X 1. 23:29 No provider procedures requiring assistance completed. Patient did not have IV access ll3 during this emergency room visit. Administered Medications: No medications were administered Medication: 23:29 VIS not applicable for this client. ll3 Outcome: 22:52 Discharge ordered by . sp3 23:29 Discharged to home via ambulance. ll3 23:29 Condition: stable 23:29 Discharge instructions given to patient, EMS, Instructed on discharge instructions, follow up and referral plans. medication usage, Demonstrated understanding of instructions, follow-up care, medications, Prescriptions given X 1. 23:32 Patient left the ED. ll3 Signatures: Dispatcher [employer] EDMS Rosa Harrison MD MD sp3 Adrian López RN RN as6 Katie Shi RN RN ll3 Corrections: (The following items were deleted from the chart) 23:31 23:29 General: Appears uncomfortable, Behavior is calm, cooperative, ll3 ll3 23:31 23:29 Pain: Complains of pain in buttocks Pain does not radiate. Pain currently is 10 ll3 out of 10 on a pain scale. ll3 23:31 23:29 GI: Abdomen is round distended, Last BM 1 week ago Reports constipation, ll3 ll3 23:31 23:29 Derm: Skin is pink, warm \T\ dry. ll3 ll3
--- NOTE | 2022-12-31 22:53 | EDPHYS ---
Physician Documentation [facility] Name: Kiel Ngo Age: 72 yrs Sex: Male : 1950 Arrival Date: 12/31/2022 Time: 21:30 Bed 15 Private MD: ED Physician Rosa Harrison HPI: 12/31 22:28 This 72 yrs old Male presents to ER via EMS with complaints of constipation + hip pains.sp3 22:28 72-year-old male with history of atrial fibrillation, chronic back pain, chronic hip sp3 pain, chronic pain syndrome, neuropathy presents to the ED with chief complaint constipation (last BM approximately 1 week ago per patient) and bilateral hip pain stating he needs more medication since he ran out. Patient has baseline tachycardia well-documented in the medical record. He denies any headache, URI symptoms, face pain, neck pain, chest pain, shortness of breath, syncope, near syncope, rash, known travel history, known sick contacts, any other symptoms on ROS at this time.. Historical: - Allergies: 21:38 Demerol; ll3 21:38 metformin; ll3 21:38 Morphine; ll3 - Home Meds: 21:38 hydromorphone 4 mg Oral tab 1 tab three times a day [Active]; Klonopin 2 mg Oral TbDi 2 ll3 tabs 4 times a day [Active]; - PMHx: 21:38 Atrial fibrillation; chronic back pain; Chronic right leg pain; neuropathy; ll3 - PSHx: 21:38 back sx; PANCREAS SX; R. Ankle SX; ll3 - Immunization history:: Client reports having NOT received the Covid vaccine. - Social history:: Smoking status: Patient denies any tobacco usage or history of. ROS: 22:29 Constitutional: Negative for fever, chills, and weight loss, Eyes: Negative for injury, sp3 pain, redness, and discharge, ENT: Negative for injury, pain, and discharge, Neck: Negative for injury, pain, and swelling, Cardiovascular: Negative for chest pain, palpitations, and edema, Respiratory: Negative for shortness of breath, cough, wheezing, and pleuritic chest pain, Back: Negative for injury and pain, Skin: Negative for injury, rash, and discoloration, Neuro: Negative for headache, weakness, numbness, tingling, and seizure, Psych: Negative for depression, anxiety, suicide ideation, homicidal ideation, and hallucinations, Allergy/Immunology: Negative for hives, rash, and allergies, Endocrine: Negative for neck swelling, polydipsia, polyuria, polyphagia, and marked weight changes, Hematologic/Lymphatic: Negative for swollen nodes, abnormal bleeding, and unusual bruising. 22:29 All other systems are negative. Exam: 22:29 Constitutional: This is a well developed, well nourished patient who is awake, alert, sp3 and in no acute distress. Head/Face: Normocephalic, atraumatic. Eyes: Pupils equal round and reactive to light, extra-ocular motions intact. Lids and lashes normal. Conjunctiva and sclera are non-icteric and not injected. Cornea within normal limits. Periorbital areas with no swelling, redness, or edema. Neck: Trachea midline, no thyromegaly or masses palpated, and no cervical lymphadenopathy. Supple, full range of motion without nuchal rigidity, or vertebral point tenderness. No Meningismus. Chest/axilla: Normal chest wall appearance and motion. Nontender with no deformity. No lesions are appreciated. Cardiovascular: Regular rate and rhythm with a normal S1 and S2. No gallops, murmurs, or rubs. Normal PMI, no JVD. No pulse deficits. Respiratory: Lungs have equal breath sounds bilaterally, clear to auscultation and percussion. No rales, rhonchi or wheezes noted. No increased work of breathing, no retractions or nasal flaring. Back: No spinal tenderness. No costovertebral tenderness. Full range of motion. Skin: Warm, dry with normal turgor. Normal color with no rashes, no lesions, and no evidence of cellulitis. Neuro: Awake and alert, GCS 15, oriented to person, place, time, and situation. Cranial nerves II-XII grossly intact. Motor strength 5/5 in all extremities. Sensory grossly intact. Cerebellar exam normal. Normal gait. Psych: Awake, alert, with orientation to person, place and time. Behavior, mood, and affect are within normal limits. 22:29 Abdomen/GI: Abdomen is soft, nondistended, without peritoneal signs.. Vital Signs: 21:35 BP 159 / 99; Pulse 146; Resp 20; Temp 98.1(O); Pulse Ox 97% on R/A; Weight 83.91 kg ll3 (R); Height 5 ft. 11 in. (R); 23:00 BP 165 / 92; Pulse 147; Resp 20; Pulse Ox 96% on R/A; ll3 21:35 Body Mass Index 25.80 (83.91 kg, 180.34 cm) ll3 MDM: 22:14 Patient medically screened. sp3 22:30 Data reviewed: vital signs, nurses notes, radiologic studies. ED course: 72-year-old sp3 male with constipation. Abdomen is soft and I do not believe patient has obstruction or ileus. Will obtain 1 view x-ray to determine stool status. Hip pain is chronic in nature. Tachycardia is also chronic in nature. Patient is resting in no acute distress. I do not believe he is tachycardic from active withdrawal. Discharge patient with additional assist to relieve his constipation. She can follow-up with his PCP and chronic pain doctor for refill for his pain medications as needed based on their assessment and plan. Patient is nontoxic, and clinically does not have sepsis, shock, ACS, or any other critical findings or diagnoses at this time.. 22:51 ED course: X-ray demonstrates stool without air-fluid levels or any other signs of sp3 obstruction or ileus. We will discharge patient on magnesium citrate and follow-up with PCP.. 12/31 22:17 Order name: Abdomen 1 View XRAY sp3 Administered Medications: No medications were administered Disposition Summary: 12/31/22 22:52 Discharge Ordered Location: Home sp3 Condition: Stable sp3 Diagnosis - Constipation, unspecified sp3 - Tachycardia, unspecified sp3 Followup: sp3 - With: Private Physician - When: Upon discharge from the Emergency Department - Reason: Continuance of care Discharge Instructions: - Discharge Summary Sheet sp3 - Constipation, Adult sp3 Forms: - SBAR form em1 - Medication Reconciliation Form sp3 - Thank You Letter sp3 - Antibiotic Education sp3 - Prescription Opioid Use sp3 Prescriptions: - magnesium citrate Oral solution - take 75 milliliter by ORAL route daily as needed for constipation; 150 sb4 milliliter; Refills: 0, Product Selection Permitted Signatures: Dispatcher [employer] EDMS Rosa Harrison MD MD sp3 Loubet, Lynsea, RN RN ll3
[2023-01-01 00:31] VITALS: TEMP 98.1
[2023-01-01 00:34] VITALS: BP 165/92; O2SAT 96
--- NOTE | 2023-01-01 11:11 | RAD REPORT ---
EXAM DESCRIPTION: RAD - Abdomen Single View - 12/31/2022 10:43 pm CLINICAL HISTORY: The patient is 72 years old and is Male; CONSTIPATION TECHNIQUE: Frontal supine view of the abdomen/pelvis. COMPARISON: No relevant prior studies available. FINDINGS: GASTROINTESTINAL TRACT: A large amount of stool is noted within the visualized right col on and rectosigmoid colon. No overt obstruction. BONES/JOINTS: Degenerative change of the bones is noted. The bones are osteopenic. VASCULATURE: Calcified phlebolith are present within the pelvis. OTHER FINDINGS: The majority of the abdomen is not included in this exam. IMPRESSION: Examination is limited as the majority of the abdomen is not included in the field-of-vi ew. However, large amount of stool noted within the visualized right colon and rectosigmoid colon. Electronically signed by: Grace Garcia MD 12/31/2022 11:54 PM CDT Due to temporary technical issues with the PACS/Fluency reporting system, reports are being signed by the in house radiologists without review as a courtesy to insure prompt reporting. The interpreting radiologist is fully responsible for the content of the report.
--- NOTE | 2023-01-01 17:22 | EKG ---
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
== END 2022-12-31 23:32 | disposition home or self-care (01) ==
LOC: ER 21:27
DX: K59.00 Constipation, unspecified (principal); R00.0 Tachycardia, unspecified
CPT/HCPCS: 74018; 93005

== ENCOUNTER 2023-02-07 17:12 | Emergency (ER) | payer OTHER ==
[2012-02-14 07:16] VITALS: BP 146/76
--- NOTE | 2023-02-07 17:16 | EDPHYS ---
Physician Documentation [facility] Name: Kiel Ngo Age: 72 yrs Sex: Male : 1950 Arrival Date: 02/07/2023 Time: 17:12 Bed DIS3 Private MD: ED Physician Scotty Guzman HPI: 02/07 17:17 This 72 yrs old Male presents to ER via Unassigned with complaints of Chronic back and ms3 leg pain. 17:17 72-year-old male presents via [facility] for chronic low back pain and bilateral ms3 hip pain. Patient states the symptoms have been going on for years. Patient denies any change in symptoms. Patient denies falls or trauma. Patient states his pain is a 10/10. Patient denies nausea or vomiting. Patient states the Dilaudid is the only medication that will work for his pain. Historical: - Allergies: 17:48 Demerol; jl7 17:48 metformin; jl7 17:48 Morphine; jl7 - PMHx: 17:48 Atrial fibrillation; chronic back pain; Chronic right leg pain; neuropathy; jl7 - PSHx: 17:48 back sx; PANCREAS SX; R. Ankle SX; jl7 - Immunization history:: Adult Immunizations unknown. - Social history:: Smoking status: unknown. ROS: 17:17 Constitutional: Negative for fever, and chills. Neck: Negative for injury, pain, and ms3 swelling, Cardiovascular: Negative for chest pain, and palpitations. Respiratory: Negative for shortness of breath, cough, wheezing, and pleuritic chest pain, Abdomen/GI: Negative for abdominal pain, nausea, vomiting, diarrhea, and constipation. 17:17 Back: Positive for pain at rest. 17:17 MS/extremity: Positive for Bilateral hip pain. Exam: 17:17 Constitutional: This is a well developed, well nourished patient who is awake, alert, ms3 and in no acute distress. Head/Face: Normocephalic, atraumatic. Chest/axilla: Normal chest wall appearance and motion. Nontender with no deformity. Cardiovascular: Regular rate and rhythm with a normal S1 and S2. No gallops, murmurs, or rubs. Normal PMI, no JVD. No pulse deficits. Respiratory: Lungs have equal breath sounds bilaterally, clear to auscultation and percussion. No rales, rhonchi or wheezes noted. No increased work of breathing, no retractions or nasal flaring. Abdomen/GI: Soft, non-tender, with normal bowel sounds. No distension or tympany. No guarding or rebound. No evidence of tenderness throughout. Skin: Warm, dry with normal turgor. Normal color with no rashes, no lesions, and no evidence of cellulitis. 17:17 Back: pain, that is moderate, of the left low back, left mid back, right mid back and right low back, ROM is 17:17 Musculoskeletal/extremity: Extremities: noted in the Bilateral hips: pain. MDM: 17:14 Patient medically screened. ms3 17:17 I considered the following discharge prescriptions or medication management in the ak3 emergency department Medications were administered in the Emergency Department. See MAR. Historians other than the Patient: EMS: [facility]. Counseling: I had a detailed discussion with the patient and/or guardian regarding: the historical points, exam findings, and any diagnostic results supporting the discharge/admit diagnosis, the need for outpatient follow up, to return to the emergency department if symptoms worsen or persist or if there are any questions or concerns that arise at home. ED course: Discussed chronic pain management with patient. Patient to follow-up with his pain management physician. Patient understands agrees with plan. All questions were answered. Patient given prescription for ibuprofen and Medrol Dosepak. Return precautions discussed include worsening symptoms, or any other concerns. 17:21 Data reviewed: EMS record, and as a result, I will discharge patient. ms3 Administered Medications: 17:47 Not Given (Patient Refused): Ketorolac IM 30 mg IM once jl7 Disposition Summary: 02/07/23 17:15 Discharge Ordered Location: Home ms3 Condition: Stable ms3 Diagnosis - Pain in hip ms3 - Low back pain ms3 Followup: ms3 - With: Private Physician - When: 1 - 2 days - Reason: Recheck today's complaints Discharge Instructions: - Discharge Summary Sheet ms3 - Acute Back Pain, Adult ms3 - Hip Pain ms3 Forms: - Medication Reconciliation Form ms3 - Thank You Letter ms3 - Antibiotic Education ms3 - Prescription Opioid Use ms3 Prescriptions: - Ibuprofen 600 mg Oral Tablet - take 1 tablet by ORAL route every 6 hours As needed take with food; 30 tablet; ms3 Refills: 0, Product Selection Permitted - Medrol (Dylan) 4 mg Oral Tablets, Dose Pack - take 1 tablet by ORAL route as directed - follow package instructions; 1 ms3 packet; Refills: 0, Product Selection Permitted Signatures: Mariel Louis RN RN jl7 Scotty Guzman DO DO ms3
--- OUTSIDE RECORDS SUMMARY | 2023-02-07 17:20 | XMS REPORT | Continuity of Care Document ---
:1950 Author Organization [facility] t Address [address] [place] [address] Care Team Providers Name Role Phone CALVIN WORLEY Primary Care Physician Unavailable [id number] Attending Clinician Unavailable KELLY WASHINGTON Attending Clinician [...] PACO LACEY Attending Clinician Unavailable Doctor Unassigned, [place] Attending Clinician Unavailable Wilder VILLAREAL, Angi K.H. Attending Clinician Jl Mccabe MD Attending Clinician Kelly Washington MD Attending Clinician [phone] Mukul Gallardo MD Attending Clinician [id number] Admitting Clinician Unavailable MUKUL GALLARDO Admitting Clinician Unavailable Angle Mathew, Anav Admitting Clinician Unavailable Hunter VILLAREAL, Vika G Admitting Clinician VIKA HARRISON Admitting Clinician Unavailable Mukul Gallardo MD Admitting Clinician Payers Payer Name Policy Type Policy Number Effective Date Expiration Date [place] MEDICARE PART A [id number] 2007 \\T\\ B 00:00:00 [employer] INDEMNITY [id number] 2016 00:00:00 MCR MCR [id number] MEDICARE PART A [id number] 2014 \\T\\ B - MEDICARE 00:00:00 INDEMNITY/TRADITIO [id number] NAL CHOICE - [employer] 00:00:00 Problems Condition Condition Condition Status Onset Resolution Last Treating Co mments Source Name Details Category Date Date Treatment Clinician Date Elevated Elevated Disease Active 2020-0 Unive rs LFTs LFTs 2-05 ity of 00:00: [place] 00 Medical Branch Abnormal Abnormal Disease Active 2020-0 Unive rs CXR CXR 2-05 ity of 00:00: Medical Branch Elevated Elevated Disease Active 2020-0 Unive rs LFTs LFTs 2-05 ity of 00:00: 00 Medical Branch Cellulitis Cellulitis Disease Active 2020-0 U nivers 2-04 ity of 00:00: [place] 00 Medical Branch Rash Rash Disease Active 2019- Univers 1-09 ity of 00:00: 00 Medical Branch Allergies, Adverse Reactions, Alerts Allergy Allergy Status Severity Reaction(s) Onset Inactive Treating Comm ents Source Name Type Date Date Clinician Rowan Propensi Active Rash 2019- Univers ty to 1-10 ity of adverse 00:00: [place] reaction 00 Medical s Branch PEACH DRUG Active Rash 2019- Univers INGREDI 1-10 ity of 00:00: 00 Medical Branch Lidocain Drug Active Itching 2019-10 Univers e Allergy -09 ity of 00:00: [place] 00 Medical Branch LIDOCAIN DRUG Active ITCHING [...] Quantity Comments Source Exposure to Not sure [place] of SARS-CoV-2 [place] Medical (event) Branch [...] University o f Transport Non-Med 00:00:00 00:00:00 [place] M edical Branch Education 2020-11-16 2020-11-16 21 [place] of 00:00:00 00:00:00 [facility] Branch Alcohol intake 2020-11-16 2020-11-16 Ex-drinker [place] of 00:00:00 00:00:00 (finding) [facility] Tobacco use and 2020-08-21 2020-08-21 Former user Universi ty of exposure 00:00:00 00:00:00 [facility] Tobacco Comment 2020-08-21 2020-08-21 quit 10 years Univer sity of 00:00:00 00:00:00 ago, started in [place] Med ica 2nd year of [facility] (~40 years) Alcohol Comment 2020-08-21 2020-08-21 Used to have 2-3 Uni versity of 00:00:00 00:00:00 six-packs of [place] Medica l beer daily x 20 Branch years, quit 2005 History [facility] 2020-08-21 2020-08-21 99 University o f Alcohol Frequency 00:00:00 00:00:00 [place] M edical Branch History [facility] 2020-08-21 2020-08-21 99 University o f Alcohol Std 00:00:00 00:00:00 [place] Medical Drinks Branch History [facility] 2020-08-21 2020-08-21 99 University o f Alcohol Binge 00:00:00 00:00:00 [facility] Sex Ass[birth year] At [birth year] Universit y of 00:00:00 00:00:00 [facility] Smoking Status Start Date Stop Date [...] Until Discontinu ed, Routine amLODIPine 0 Yes [id number] 10mg Take 1 Univers 10 mg 3-07 tablet by ity of tablet 00:00: mouth [place] 00 daily. Medical Branch clotrimazol 2020-0 Yes [id number] Apply to Univers e 1 % 3-07 face/ears, ity of topical 00:00: armpits, [place] cream 00 pannus and Medical back/any Branch other rash twice a day fluocinonid 2020-0 Yes [id number] Apply to Univers e 0.05 % 3-07 scalp ity of solution 00:00: twice a [place] 00 day Medical Branch triamcinolo 2020-0 Yes [id number] Apply to Univers ne 3-07 back, ity of acetonide 00:00: armpits [place] 0.1 % cream 00 and other Med ical affected Branch areas twice daily, please mix with clotrimazo le hydrOXYzine 2020-0 Yes [id number] 10mg Take 1 Univers 10 mg 3-07 tablet by ity of tablet 00:00: mouth 2 00 (two) Medical times Branch daily. amLODIPine 2020-0 Yes [id number] 10mg Take 1 Univers 10 mg 3-07 tablet by ity of tablet 00:00: mouth [place] 00 daily. Medical Branch clotrimazol 2020-0 Yes [id number] Apply to Univers e 1 % 3-07 face/ears, ity of topical 00:00: armpits, [place] cream 00 pannus and Medical back/any Branch other rash twice a day fluocinonid 2020-0 Yes [id number] Apply to Univers e 0.05 % 3-07 scalp ity of solution 00:00: twice a [place] 00 day Medical Branch triamcinolo 2020-0 Yes [id number] Apply to Univers ne 3-07 back, ity of acetonide 00:00: armpits [place] 0.1 % cream 00 and other Med ical affected Branch areas twice daily, please mix with clotrimazo le hydrOXYzine 2020-0 Yes [id number] 10mg Take 1 Univers 10 mg 3-07 tablet by ity of tablet 00:00: mouth 2 [place] 00 (two) Medical times Branch daily. amLODIPine 2020-0 Yes [id number] 10mg Take 1 Univers 10 mg 3-07 tablet by ity of tablet 00:00: mouth [place] 00 daily. Medical Branch clotrimazol 2020-0 Yes [id number] Apply to Univers e 1 % 3-07 face/ears, ity of topical 00:00: armpits, [place] cream 00 pannus and Medical back/any Branch other rash twice a day fluocinonid 2020-0 Yes [id number] Apply to Univers e 0.05 % 3-07 scalp ity of solution 00:00: twice a day Medical Branch triamcinolo 0 Yes [id number] Apply to Univers ne 3-07 back, ity of acetonide 00:00: armpits [place] 0.1 % cream 00 and other Med ical affected Branch areas twice daily, please mix with clotrimazo le hydrOXYzine Yes [id number] 10mg Take 1 Univers 10 mg 3- tablet by ity of tablet 00:00: mouth 2 (two) Medical times Branch daily. amLODIPine Yes [id number] 10mg Take 1 Univers 10 mg 3-07 tablet by ity of tablet 00:00: mouth 00 daily. Medical Branch clotrimazol 0 Yes [id number] Apply to Univers e 1 % 3-07 face/ears, ity of topical 00:00: armpits, [place] cream 00 pannus and Medical back/any Branch other rash twice a day fluocinonid 2020-0 Yes [id number] Apply to Univers e 0.05 % 3-07 scalp ity of solution 00:00: twice a day Medical Branch triamcinolo 0 Yes [id number] Apply to Univers ne 3-07 back, ity of acetonide 00:00: armpits [place] 0.1 % cream 00 and other Med ical affected Branch areas twice daily, please mix with clotrimazo le hydrOXYzine Yes [id number] 10mg Take 1 Univers 10 mg 3-07 tablet by ity of tablet 00:00: mouth 2 00 (two) Medical times Branch daily. cephALEXin 2020-2020- No [id number] 500mg Take 1 Univers 500 mg 12-17- capsule by ity of capsule 00:00: 05:59 mouth [place] 00 :00 every 6 Medical (six) Branch hours for 3 days. cephALEXin 2020-2020- No [id number] 500mg Take 1 Univers 500 mg 12-17 capsule by ity of capsule 00:00: 05:59 mouth [place] 00 :00 every 6 Medical (six) Branch hours for 3 days. hydrOXYzine 2020- No [id number] 10mg Take 1 Univers 10 mg 12-17 [...] 1,000 mL 00 :00 IV Medical Infusion, [place] ONCE, 1 dose, 12/15/20 at 1900, Routine [...] days NaCl 0.9% No 500mL at 999 [facility] [facility] ers (NS) bolus 12-15-05 mL/hr, [...] Until Discontinu ed, Routine amLODIPine 2020- No [id number] 10mg Take 1 Univers 10 mg 12-15-07 [...] First dose [place] mg 00 on [facility] Medical 12/14/20 at Branch 1130, Until Discontinu ed, Routine lisinopriL Yes 5mg 5 mg, Univer s (PRINIVIL,Z 12-14 Oral, ity of ESTRIL) 17:30: DAILY, [place] tablet 5 mg 00 First dose Me dical on [place] Branch 12/14/20 at 1130, Until Discontinu ed, Routine triamcinolo 2020- No [id number] Apply to Univers ne 12-14 back, ity of acetonide 00:00: 00:00 armpits [place] 0.1 % cream 00 :00 and other Med ical affected Branch areas twice daily, please mix with clotrimazo le clotrimazol 2020- No [id number] Apply to Univers e 1 % 12-14 face/ears, ity of topical 00:00: 00:00 armpits, [place] cream 00 :00 pannus and Medical back/any Branch other rash twice a day fluocinonid 2020- No [id number] Apply to Univers e 0.05 % 12-14 scalp ity of solution 00:00: 00:00 twice a [place] 00 :00 day Medical Branch hydrOXYzine 2020- No [id number] 10mg Take 1 Univers 10 mg 12-14 [...] 1 [place] mg 00 :00 dose, [facility] 12/12/20 at Branch 2145, Routine [...] 1 [place] mg 00 :00 dose, [facility] 12/12/20 at Branch 0215, Routine [...] [place] capsule 300 00 on [facility] Medica l mg 12/11/20 at [...] mg 00 First dose Medical on Fri [place] 12/11/20 at 1700, Until Discontinu ed, Routine clotrimazol 0 Yes Topical, Un toi e 3- BID, First ity of (LOTRIMIN) 19:15: dose [place] 1 % topical Fri12/11/20 Me dical cream at 1315, Branch Until Discontinu ed, Routine hydrocortis 0 Yes Topical Uni vers one 2.5 % 12-11 (Apply To ity o f cream 19:15: Affected [place] 00 Areas), Medical BID, First Branch dose on Fri12/11/20 at 1315, Until Discontinu ed, Routine triamcinolo Yes Topical, Un toi ne 12-11 BID, First ity of acetonide 19:00: dose [place] (TRIDERM) 00 (after Medical 0.1 % cream last Branch modificati on) on Fri12/11/20 at 1300, Until Discontinu ed, Routine ceFAZolin 2020- No 1000mg 1,000 mg, [facility] (ANCEF) 12-11 03-05 IV ity of 1,000 mg in 19:00: 17:35 Piggyback, [place] NaCl 0.9% 00 :26 Q8H ABX, Medica l (NS) 50 mL First dose Bra nch MINI-BAG on Fri12/11/20 at 1300, Until Discontinu ed, 50 mL
R jose armando for Anti-Infec tive: Documented Infection< br>Documen ronan Infection Site: Skin / Soft Tissue
Duration of Therapy: 7 days Sliding Yes Subcutaneo [facility] [facility] ers Scale 12-11 us, TID ity of Insulin - 18:00: MEALS+HS, [place] Lispro 00 First dose Medical (HumaLOG) + on Fri Branch Fsbg 12/11/20 at Testing 1200, Until Discontinu ed, Routine insulin Yes 5U 5 Units, [facility] s lispro 12-11 Subcutaneo ity of (human) 18:00: us, TID [place] (HumaLOG 00 MEALS, Medical U-100) First dose Branch injection 5 on Fri Units 12/11/20 at 1200, Until Discontinu ed Polyethylen Yes 17g 17 g, [facility] rs e Glycol 12-11 Oral, ity of 3350 17:47: [id number], [place] (MIRALAX) 05 Starting Medica l [...] ONCE, 1 Medical 75 mcg dose, [facility] Branch 12/11/20 at 0900, Routine vancomycin [...] STAT piperacilli 2020- No 3.375g 3.375 g, [facility] n-tazobacta 12-11 IV ity of m (ZOSYN) 12:00: 17:48 Piggyback, [place] injection 00 :24 Q6H, First Medi jose c 3.375 g dose on Branch [facility] 12/11/20 at 0600, Until Discontinu ed, KAHLIL
Re ason for Anti-Infec tive: Empiric Therapy for Suspected Infection< br>Empiric Therapy Site: Skin / Soft tissue
Duration of therapy: 72 hours sennosides- Yes [id number] 1{tbl} Take 1 Univers docusate 2-09 tablet by ity of sodium 00:00: mouth 2 [place] 8.6-50 mg 00 (two) Medical per tablet times Branch daily. hydrocortis Yes [id number] Apply to [facility] one 2.5 % 2-09 affected ity of cream 00:00: area(s) 2 [place] 00 (two) Medical times Branch daily. blood sugar 2020-0 Yes [id number] Use to [facility] diagnostic 11-21 check ity of (FREESTYLE 00:00: blood [place] LITE 00 glucose Medical STRIPS) 4-5 times Branch strip daily. Polyethylen 2020-0 Yes [id number] 17g Take 1 Univers e Glycol 2-09 Packet by ity of 3350 17 00:00: mouth [place] gram powder 00 every 24 Medi jose c (twenty-fo Branch ur) hours as needed for Constipati on. sennosides- 2020- Yes [id number] 1{tbl} Take 1 Univers docusate 2-09 tablet by ity of sodium 00:00: mouth 2 [place] 8.6-50 mg 00 (two) Medical per tablet times Branch daily. hydrocortis 2020-0 Yes [id number] Apply to Univers one 2.5 % 2-09 affected ity of cream 00:00: area(s) 2 [place] 00 (two) Medical times Branch daily. blood sugar 2020-0 Yes [id number] Use to [facility] diagnostic 11-21 check ity of (FREESTYLE 00:00: blood [place] LITE 00 glucose Medical STRIPS) 4-5 times Branch strip daily. Polyethylen 2020-0 Yes [id number] 17g Take 1 Univers e Glycol 2-09 Packet by ity of 3350 17 00:00: mouth [place] gram powder 00 every 24 Medi jose c (twenty-fo Branch ur) hours as needed for Constipati on. sennosides- 2020-0 Yes [id number] 1{tbl} Take 1 Univers docusate 2-09 tablet by ity of sodium 00:00: mouth 2 [place] 8.6-50 mg 00 (two) Medical per tablet times Branch daily. hydrocortis 2020-0 Yes [id number] Apply to Univers one 2.5 % 2-09 affected ity of cream 00:00: area(s) 2 [place] 00 (two) Medical times Branch daily. blood sugar 2020-0 Yes [id number] Use to [facility] diagnostic 11-21 check ity of (FREESTYLE 00:00: blood [place] LITE 00 glucose Medical STRIPS) 4-5 times Branch strip daily. Polyethylen 2020-0 Yes [id number] 17g Take 1 Univers e Glycol 2-09 Packet by ity of 3350 17 00:00: mouth [place] gram powder 00 every 24 Medi jose c (twenty-fo Branch ur) hours as needed for Constipati on. sennosides- Yes [id number] 1{tbl} Take 1 Univers docusate 11-21 tablet by ity of sodium 00:00: mouth 2 [place] 8.6-50 mg 00 (two) Medical per tablet times Branch daily. hydrocortis Yes [id number] Apply to [facility] one 2.5 % 11-21 affected ity of cream 00:00: area(s) 2 [place] 00 (two) Medical times Branch daily. blood sugar Yes [id number] Use to [facility] diagnostic 11-21 check ity of (FREESTYLE 00:00: blood [place] LITE 00 glucose Medical STRIPS) 4-5 times Branch strip daily. Polyethylen Yes [id number] 17g Take 1 Univers e Glycol - Packet by ity of 3350 17 00:00: mouth [place] gram powder 00 every 24 Medi jose c (twenty-fo Branch ur) hours as needed for Constipati on. Insulin 2020- No [id number] 15U inject 15 Univers Glargine 11-21-12 Units ity of (LANTUS 00:00: 05:59 under the [employer] SOLOSTAR 00 :00 skin every Medic al U-100 morning Branch INSULIN) for 30 100 unit/mL days. (3 mL) injection venlafaxine 2020- No [id number] 150mg Take 1 Univers XR 150 mg 11-21 capsule by ity of 24 hr 00:00: 05:59 mouth 3 [place] capsule 00 :00 (three) Medical times Branch daily for 30 days. Insulin 2020- No [id number] 15U inject 15 Univers Glargine 11-21-12 Units ity of (LANTUS 00:00: 05:59 under the [employer] SOLOSTAR 00 :00 skin every Medic al U-100 morning Branch INSULIN) for 30 100 unit/mL days. (3 mL) injection venlafaxine 2020- No [id number] 150mg Take 1 Univers XR 150 mg 11-21 capsule by ity of 24 hr 00:00: 05:59 mouth 3 [place] capsule 00 :00 (three) Medical times Branch daily for 30 days. triamcinolo 2020- No [id number] Apply to [facility] ne 11-21 area(s) 2 ity of acetonide 00:00: 00:00 (two) [place] 0.1 % cream 00 :00 times Medical daily. Branch cephALEXin 2020- No [id number] 1000mg Take 2 Univers 500 mg 11-21 capsules ity of capsule 00:00: 00:00 by mouth 3 [place] 00 :00 (three) Medical times Branch daily. doxycycline 2020- No [id number] 100mg Take 1 Univers hyclate 100 11-21 capsule by i ty of mg capsule 00:00: 00:00 mouth [place] 00 :00 every 12 Medical (twelve) Branch hours. lactobacill 2020- No [id number] 1{tbl} Take 1 Univers us 11-21 tablet by ity of acidophilus 00:00: 00:00 mouth 2 [place] 25 million 00 :00 (two) Medical cell -100 times Branch mg captab daily. bisacodyL 2020- No [id number] 10mg Insert 1 Univers 10 mg 11-21 Suppositor ity of suppository 00:00: 00:00 y into [place] 00 :00 rectum at Medical bedtime as Branch needed for Constipati on. ALPRAZolam 2020- No [id number] .25mg Take 1 Univers (XANAX) 11-21 tablet by ity of 0.25 mg 00:00: 00:00 mouth 2 [place] tablet 00 :00 (two) Medical times Branch daily. hydrOXYzine 2020- No [id number] 20mg Take 2 Univers 10 mg 11-21 [...] Units ity of (NOVOLOG 01:13: under the [facility] s FLEXPEN SC) 36 skin. Medical [...] Units ity of (NOVOLOG 01:13: under the [facility] FLEXPEN SC) 36 skin. Medical Branch ALPRAZolam 2019-10 Yes .25mg Take 0.25 U nivers (XANAX) 1-12 mg by ity of 0.25 mg 01:13: mouth 2 [place] tablet 36 (two) Medical times Branch daily. HYDROXYZINE 2019-10 2020- No 25mg Take 25 mg Univers PAMOATE 1-11 11-11 by mouth ity of ORAL 20:04: 00:00 daily. [place] 34 :00 Medical Branch hydrocortis 2019-10 Yes [id number] Apply to Univers one 2.5 % 1-11 affected ity of cream 00:00: area(s) 2 [place] 00 (two) Medical times Branch daily. hydrOXYzine 2019-10 Yes [id number] 20mg Take 2 Univers 10 mg 1-11 tablets by ity of tablet 00:00: mouth [place] 00 every 8 Medical (eight) Branch hours as needed for Itching or Anxiety. Polyethylen 2019-10 Yes [id number] 17g Take 1 Univers e Glycol 1-11 Packet by ity of 3350 17 00:00: mouth [place] gram powder 00 every 24 Medi jose c (twenty-fo Branch ur) hours as needed for Constipati on. hydrocortis 2019- Yes [id number] Apply to Univers one 2.5 % 1-11 affected ity of cream 00:00: area(s) 2 [place] 00 (two) Medical times Branch daily. hydrOXYzine 2019- Yes [id number] 20mg Take 2 Univers 10 mg 1-11 tablets by ity of tablet 00:00: mouth [place] 00 every 8 Medical (eight) Branch hours as needed for Itching or Anxiety. Polyethylen 2020- Yes [id number] 17g Take 1 Univers e Glycol 1-11 Packet by ity of 3350 17 00:00: mouth [place] gram powder 00 every 24 Medi jose c (twenty-fo Branch ur) hours as needed for Constipati on. hydrocortis 2019- Yes [id number] Apply to Univers one 2.5 % 1-11 affected ity of cream 00:00: area(s) 2 [place] 00 (two) Medical times Branch daily. hydrOXYzine 2019- Yes [id number] 20mg Take 2 Univers 10 mg 1-11 tablets by ity of tablet 00:00: mouth [place] 00 every 8 Medical (eight) Branch hours as needed for Itching or Anxiety. Polyethylen 2019- Yes [id number] 17g Take 1 Univers e Glycol 1-11 Packet by ity of 3350 17 00:00: mouth [place] gram powder 00 every 24 Medi jose c (twenty-fo Branch ur) hours as needed for Constipati on. hydrocortis 2019- Yes [id number] Apply to Univers one 2.5 % 1-11 affected ity of cream 00:00: area(s) 2 [place] 00 (two) Medical times Branch daily. hydrOXYzine 2019- Yes [id number] 20mg Take 2 Univers 10 mg 1-11 tablets by ity of tablet 00:00: mouth [place] 00 every 8 Medical (eight) Branch hours as needed for Itching or Anxiety. Polyethylen 2019- Yes [id number] 17g Take 1 Univers e Glycol 1-11 Packet by ity of 3350 17 00:00: mouth [place] gram powder 00 every 24 Medi jose c (twenty-fo Branch ur) hours as needed for Constipati on. hydrocortis 2019- Yes [id number] Apply to Univers one 2.5 % 1-11 affected ity of cream 00:00: area(s) 2 [place] 00 (two) Medical times Branch daily. hydrOXYzine 2019- Yes [id number] 20mg Take 2 Univers 10 mg 1-11 tablets by ity of tablet 00:00: mouth [place] 00 every 8 Medical (eight) Branch hours as needed for Itching or Anxiety. Polyethylen 2020- Yes [id number] 17g Take 1 Univers e Glycol 1-11 Packet by ity of 3350 17 00:00: mouth [place] gram powder 00 every 24 Medi jose c (twenty-fo Branch ur) hours as needed for Constipati on. hydrocortis 2019- Yes [id number] Apply to Univers one 2.5 % 1-11 affected ity of cream 00:00: area(s) 2 [place] 00 (two) Medical times Branch daily. hydrOXYzine 2019- Yes [id number] 20mg Take 2 Univers 10 mg 1-11 tablets by ity of tablet 00:00: mouth [place] 00 every 8 Medical (eight) Branch hours as needed for Itching or Anxiety. Polyethylen 2019- Yes [id number] 17g Take 1 Univers e Glycol 1-11 Packet by ity of 3350 17 00:00: mouth [place] gram powder 00 every 24 Medi jose c (twenty-fo Branch ur) hours as needed for Constipati on. hydrocortis 2019-10 Yes [id number] Apply to Univers one 2.5 % 1-11 affected ity of cream 00:00: area(s) 2 [place] 00 (two) Medical times Branch daily. hydrOXYzine 2019-10 Yes [id number] 20mg Take 2 Univers 10 mg 1-11 tablets by ity of tablet 00:00: mouth [place] 00 every 8 Medical (eight) Branch hours as needed for Itching or Anxiety. Polyethylen 2019- Yes [id number] 17g Take 1 Univers e Glycol 1-11 Packet by ity of 3350 17 00:00: mouth [place] gram powder 00 every 24 Medi jose c (twenty-fo Branch ur) hours as needed for Constipati on. triamcinolo 2019- 2020- No [id number] Apply to [facility] 10-23 area(s) 2 ity of acetonide 00:00: 05:59 (two) [place] 0.1 % cream 00 :00 times Medical daily for Branch 14 days. triamcinolo 2020- 2020- No [id number] Apply to [facility] 10-23 area(s) 2 ity of acetonide 00:00: 05:59 (two) [place] 0.1 % cream 00 :00 times Medical daily for Branch 14 days. triamcinolo 2020- 2020- No [id number] Apply to [facility] 1-11 11-26 area(s) 2 ity of acetonide 00:00: 05:59 (two) [place] 0.1 % cream 00 :00 times Medical daily for Branch 14 days. KCL 2019- 2020- No 40meq 40 mEq, Univers (KLOR-CON 1-10 11-10 Oral, ONCE ity of M20) tablet 16:15: 16:23 NOW, 1 [place] 40 mEq 00 :00 dose, [facility] 08/22/20 Branch at 1015, Routine HYDROmorpho 2019-10 Yes 1mg 1 mg, Unive rs ne 1-10 Oral, ity of (DILAUDID) 15:07: Q6HPRN, [place] tablet 1 mg 53 Starting [facility] 08/22/20 at 0907, Until Discontinu ed, Routine, Pain (scale 7-10) hydrocortis 2019-10 Yes Topical Uni vers one 2.5 % -10 (Apply To ity o f cream 02:00: Affected [place] 00 Areas), Medical BID, First Branch dose on [facility] 08/21/20 at 2000, Until Discontinu ed, Routine triamcinolo 2019-10 Yes Topical, Un toi ne 1-10 BID, First ity of acetonide 02:00: dose on [place] (TRIDERM) 00 Fri Medical 0.1 % cream 08/21/20 at Br anch 2000, Until Discontinu ed, Routine hydrOXYzine 2019-10 Yes 20mg 20 mg, Univ ers (ATARAX) 09 Oral, ity of tablet 20 17:39: Q8HPRN, [place] mg 12 Starting Medical [facility] 08/21/20 at 1139, Until Discontinu ed, Routine, Itching, Anxiety sennosides- 2019-10 Yes 1{tbl} 1 tablet, Univers docusate 09 Oral, ity of sodium 15:00: DAILY, [place] (SENOKOT-S) 00 First dose Me dical 8.6-50 mg on [facility] Branch per tablet 08/21/20 at 1 tablet 0900, Until Discontinu ed, Routine hydrocortis 2019-10 2020- No Topical Un toi one 1 % 10-21 11- (Apply To ity of cream 15:00: 22:54 Affected [place] 00 :48 Areas), Medical DAILY, Branch First dose on [facility] 08/21/20 at 0900, Until Discontinu ed, Routine venlafaxine 2019-10 Yes 150mg 150 mg, Un toi XR (EFFEXOR 10-21 Oral, TID, it y of XR) 24 hr 14:00: First dose [place] capsule 150 00 on [facility] Medica l mg 08/21/20 at Branch 0800, Until Discontinu ed, Routine heparin 2019-10 Yes 5000U 5,000 Univers (porcine) 10-21 Units, ity of injection 14:00: Subcutaneo [place] 5,000 Units 00 us, Q12H, Med ical First dose Branch on [facility] 08/21/20 at 0800, Until Discontinu ed, Routine diphenhydrA 2019-10 2020- No 25mg 25 mg, Uni vers MINE 10-21 Oral, ity of (BENADRYL) 12:56: 17:39 Q8HPRN, [place] tablet 25 59 :43 Starting Medica l mg [facility] 08/21/20 at 0656, Until [facility] 08/21/20 at 1139, Routine, Itching, Mild Rash, Congestion /Allergies , alternate with hydroxyzin e hydrOXYzine 2019-10 2020- No 10mg 10 mg, Uni vers (ATARAX) 10-21 Oral, ity of tablet 10 10:20: 12:57 Q6HPRN, [place] mg 22 :12 Starting Medical [facility] 08/21/20 at 0420, Until [facility] 08/21/20 at 0657, Routine, Itching, Anxiety Sliding 2019-10 Yes Subcutaneo Univ ers Scale 10-21 us, Q4H, ity of Insulin - 10:00: First dose [place] Aspart 00 (after Medical (NOVOLOG) + last Branch Fsbg modificati Testing on) on [facility] 08/21/20 at 0400, Until Discontinu ed, Routine lidocaine 5 2019-10 2020- No Topical, U nivers % ointment 10-21 ONCE, 1 ity o f 09:30: 09:14 dose, [facility] 00 :00 08/21/20 at [facility] 0330, Branch Routine Polyethylen 2019-10 Yes 17g 17 g, Unive rs e Glycol 10-21 Oral, ity of 3350 08:29: [id number], [place] (MIRALAX) 09 Starting Medica l powder 17 g [facility] 08/21/20 at 0229, Until Discontinu ed, Routine, Constipati on lanolin 2019-10 Yes Topical, [facility] s alcohol-mo- 10-21 PRN, ity [...] tablet 650 24 Starting Medic al mg [facility] 08/21/20 at 0145, Until Discontinu ed, Routine, Pain (scale 1-3) sotalol 2019-10 2020- No Take by [facility] s (BETAPACE) 10-21 mouth ity of 240 mg 07:43: 00:00 every 12 [place] tablet 30 :00 (twelve) Medical hours. Branch blood sugar Yes Use to [facility] ers diagnostic 4-25 check ity of (FREESTYLE 00:00: blood [place] LITE 00 glucose Medical STRIPS) 4-5 times Branch strip daily. blood sugar Yes Use to [facility] ers diagnostic 4-25 check ity of (FREESTYLE 00:00: blood [place] LITE 00 glucose Medical STRIPS) 4-5 times Branch strip daily. blood sugar Yes Use to [facility] ers diagnostic 4-25 check ity of (FREESTYLE 00:00: blood [place] LITE 00 glucose Medical STRIPS) 4-5 times Branch strip daily. blood sugar Yes Use to [facility] ers diagnostic 4-25 check ity of (FREESTYLE 00:00: blood [place] LITE 00 glucose Medical STRIPS) 4-5 times Branch strip daily. blood sugar Yes Use to [facility] ers diagnostic 4-25 check ity of (FREESTYLE 00:00: blood [place] LITE 00 glucose Medical STRIPS) 4-5 times Branch strip daily. blood sugar Yes Use to [facility] ers diagnostic 4-25 check ity of (FREESTYLE 00:00: blood [place] LITE 00 glucose Medical STRIPS) 4-5 times Branch strip daily. blood sugar Yes Use to [facility] ers diagnostic -25 check ity of (FREESTYLE 00:00: blood [place] LITE 00 glucose Medical STRIPS) 4-5 times Branch strip daily. Vital Signs Vital Name Observation Time Observation Value Comments Source Systolic blood 2021-08-22 13:00:00 148 mm[Hg] [facility]iver [facility] Diastolic blood 2021-08-22 13:00:00 84 mm[Hg] [facility] Heart rate 2021-08-22 13:00:00 103 /min [facility] Respiratory rate 2021-08-22 13:00:00 18 /min [facility] Oxygen saturation in 2021-08-22 13:00:00 95 /min [facility] Arterial blood by [facility] Pulse oximetry Branch Body temperature 2021-08-22 12:22:00 36.72 [place] [facility] Systolic blood 2020-12-17 18:35:00 139 mm[Hg] [facility]iver [facility] Diastolic blood 2020-12-17 18:35:00 87 mm[Hg] [facility] Heart rate 2020-12-17 18:35:00 110 /min [facility] Body temperature 2020-12-17 18:35:00 37.72 [place] Univ ersity of [place] [facility] Respiratory rate 2020-12-17 18:35:00 18 /min Univ ersity of [place] [facility] Oxygen saturation in 2020-12-17 18:35:00 93 /min University of Arterial blood by [facility] Pulse oximetry Branch Body height [...] 93 /min University of Arterial blood by [facility] Pulse oximetry Branch Body height [...] 93 /min University of Arterial blood by [facility] Pulse oximetry Branch Body weight 2020-08-21 07:20:00 104.962 kg Universi [facility] BMI 2020-08-21 07:20:00 32.27 kg/m2 [facility] Systolic blood 2020-08-23 19:27:00 140 mm[Hg] Univer sity of pressure [facility] Diastolic blood 2020-08-23 19:27:00 79 mm[Hg] [facility] 2020-08-23 19:27:00 99 /min [facility] Body temperature 2020-08-23 19:27:00 36 [place] Univ [facility] Respiratory rate 2020-08-23 19:27:00 18 /min Univ [facility] Oxygen saturation in 2020-08-23 19:27:00 93 /min [facility] Arterial blood by [facility] Pulse oximetry Branch Body weight 2020-08-21 07:20:00 104.962 kg [facility] BMI 2020-08-21 07:20:00 32.27 kg/m2 [facility] Procedures Procedure Date / Time Performing Clinician Source Performed POCT GLUCOSE (AUTOMATED) 2020-12-17 15:42:00 Vika Harrison G [facility] BASIC METABOLIC PANEL 2020-12-17 10:45:00 Paul Bean [facility] (NA, K, CL, CO2, GLUCOSE, [facility] Medica l Branch BUN, CREATININE, CA) CBC WITH DIFF 2020-12-17 10:45:00 Paul Bean [facility] POCT GLUCOSE (AUTOMATED) 2020-12-17 02:36:00 Vika Harrison [facility] XR TIBIA FIBULA 2 VW LEFT 2020-12-16 23:38:00 Paul Bean [facility] POCT GLUCOSE (AUTOMATED) 2020-12-16 23:20:00 Vika Harrison [facility] POCT GLUCOSE (AUTOMATED) 2020-12-16 20:10:00 Vika Harrison Uni [facility] POCT GLUCOSE (AUTOMATED) 2020-12-16 14:43:00 Harrison, Premal [facility] BASIC METABOLIC PANEL 2020-12-16 13:51:00 Paul Bean [facility] (NA, K, CL, CO2, GLUCOSE, [facility] BUN, CREATININE, CA) CBC WITH DIFF 2020-12-16 13:51:00 Paul Bean [facility] POCT GLUCOSE (AUTOMATED) 2020-12-16 04:00:00 Harrison, [facility]al [facility] POCT GLUCOSE (AUTOMATED) 2020-12-16 00:14:00 Favio Harrisonal [facility] CHEST PULMONARY 2020-12-15 22:29:38 Paul Bean [facility] ANGIOGRAM [facility] POCT GLUCOSE (AUTOMATED) 2020-12-15 19:26:00 Favio [facility]al [facility] POCT GLUCOSE (AUTOMATED) 2020-12-15 15:13:00 Vika Harrison [facility] HB ECG ROUTINE & RHYTHM 2020-12-15 14:25:27 Cailin Romo [facility] MAGNESIUM 2020-12-15 12:01:00 Paul Bean [facility] BASIC METABOLIC PANEL 2020-12-15 12:01:00 Paul Bean [facility] (NA, K, CL, CO2, GLUCOSE, [facility] BUN, CREATININE, CA) CBC WITH DIFF 2020-12-15 12:01:00 Paul Bean [facility] POCT GLUCOSE (AUTOMATED) 2020-12-15 03:57:00 Harrison, Favioal G Uni versity of [facility] POCT GLUCOSE (AUTOMATED) 2020-12-14 23:31:00 Harrison, Premal G Uni versity [facility] POCT GLUCOSE (AUTOMATED) 2020-12-14 19:08:00 Harrison, Premal G Uni versity of [facility] POCT GLUCOSE (AUTOMATED) 2020-12-14 15:11:00 Harrison, Premal G Uni versity of [facility] POCT GLUCOSE (AUTOMATED) 2020-12-14 02:36:00 Harrison, Premal G Uni versity of [facility] POCT GLUCOSE (AUTOMATED) 2020-12-13 23:32:00 Harrison, Premal G Uni versity of [facility] POCT GLUCOSE (AUTOMATED) 2020-12-13 18:08:00 Harrison, Premal G Uni versity of [facility] BASIC METABOLIC PANEL 2020-12-13 15:39:00 Paul Bean [facility] (NA, K, CL, CO2, GLUCOSE, [facility] BUN, CREATININE, CA) CBC WITH DIFF 2020-12-13 15:39:00 Paul Bean [facility] POCT GLUCOSE (AUTOMATED) 2020-12-13 14:06:00 Harrison, Premal G Uni versity of [facility] POCT GLUCOSE (AUTOMATED) 2020-12-13 03:07:00 Harrison, Premal G Uni versity of [facility] POCT GLUCOSE (AUTOMATED) 2020-12-12 23:52:00 Harrison, Premal G Uni versity of [facility] POCT GLUCOSE (AUTOMATED) 2020-12-12 20:28:00 Harrison, Premal G Uni versity of [facility] POCT GLUCOSE (AUTOMATED) 2020-12-12 19:14:00 Harrison, Premal G Uni versity of [facility] POCT GLUCOSE (AUTOMATED) 2020-12-12 14:33:00 Harrison, Premal G Uni versity of [facility] Branch MAGNESIUM 2020-12-12 08:58:00 Paul Bean [facility] BASIC METABOLIC PANEL 2020-12-12 08:58:00 Paul Bean [facility] (NA, K, CL, CO2, GLUCOSE, [facility] BUN, CREATININE, CA) CBC WITH DIFF 2020-12-12 08:58:00 Paul Bean [facility] US ABDOMEN LIMITED 2020-12-12 06:32:26 Paul Bean [facility] POCT GLUCOSE (AUTOMATED) 2020-12-12 03:40:00 Hunter Vika Fernando [facility] POCT GLUCOSE (AUTOMATED) 2020-12-12 00:06:00 Vika Harrison [facility] XR HIPS 3 VW LEFT 2020-12-11 20:20:00 [facility] & RHYTHM 2020-12-11 20:04:06 Demetrius [facility] VITAMIN B6, PLASMA 2020-12-11 19:17:00 [facility]OMATED) 2020-12-11 19:06:00 Vika Harrison [facility] CREATINE KINASE 2020-12-11 18:22:00 [facility] B12, LEVEL 2020-12-11 18:22:00 Vikas [facility] FOLATE 2020-12-11 18:22:00 [facility] 2020-12-11 18:22:00 Demetrius Cailin [facility] PROCALCITONIN 2020-12-11 18:22:00 Hondo [facility] VITAMIN B1 (THIAMINE), 2020-12-11 18:22:00 [facility] WHOLE BLOOD [facility] HEAD WO CONTRAST 2020-12-11 14:07:35 Sweetie Stout [facility] URINALYSIS 2020-12-11 13:44:00 Singer [facility] URINE CULTURE 2020-12-11 13:44:00 Singer [facility] COVID-19 (ID NOW RAPID 2020-12-11 12:31:00 Paco Lacey [facility] TESTING) Medical Branch LAB ONLY COVID 2020-12-11 12:31:00 Singer Paco [facility] INTERPRETATION [facility] XR CHEST 1 VW 2020-12-11 12:07:24 Singer [facility] BLOOD CULTURE SCREEN 2020-12-11 12:02:00 Singer Paco [facility] MAGNESIUM 2020-12-11 12:02:00 [facility] 2020-12-11 12:02:00 [facility] COMP. METABOLIC PANEL 2020-12-11 12:02:00 Singer [facility] ([id number]) [facility] Branch CBC WITH DIFF 2020-12-11 12:02:00 [facility] LACTIC ACID WHOLE BLOOD 2020-12-11 12:02:00 [facility] BLOOD CULTURE SCREEN 2020-12-11 11:42:00 Singer [facility] EMERGENCY SERVICES 2020-12-11 06:01:00 Doctor Unaowen, [facility] AGREEMENTS AND [place] [facility] [place] AUTHORIZATIONS HOSPITAL ADMISSION 2020-12-11 06:01:00 Doctor Tabitha, [facility] Name Medical [place] HOME HEALTH - OTHER 2020-11-11 06:01:00 Doctor Tabitha, [facility] [place] [facility] - OTHER 2020-10-30 06:01:00 Doctor Tabitha, [facility] Name Medical [place] EXTERNAL PROVIDER RECORDS 2020-09-01 06:01:00 Doctor Tabitha, [facility] Name [facility] POCT GLUCOSE (AUTOMATED) 2020-08-23 18:09:00 Kelly [place] [facility] POCT GLUCOSE (AUTOMATED) 2020-08-23 14:14:00 Kelly [place] [facility] MAGNESIUM 2020-08-23 11:18:00 Ramya [facility] BASIC METABOLIC PANEL 2020-08-23 11:18:00 Ramya [facility] (NA, K, CL, CO2, GLUCOSE, Medica l Branch BUN, CREATININE, CA) CBC WITH DIFF 2020-08-23 11:18:00 Ramya [facility] POCT GLUCOSE (AUTOMATED) 2020-08-23 10:21:00 Stef[facility]Kelly [facility] POCT GLUCOSE (AUTOMATED) 2020-08-23 05:55:[address] [facility] POCT GLUCOSE (AUTOMATED) 2020-08-23 03:00:00 WashingtonKelly versity [facility] POCT GLUCOSE (AUTOMATED) 2020-08-22 23:38:00 [place], Kelly Elias versity of [facility] POCT GLUCOSE (AUTOMATED) 2020-08-22 19:04:00 Stefania [facility] PO[facility] GLU[facility]SE (AUTOMATED) 2020-08-22 13:49:00 Stefania Kelly Elias [facility] MAGNESIUM 2020-08-22 10:10:00 [place] [facility] HEPATIC FUNCTION PANEL 2020-08-22 10:10:00 Aguila Melchor [facility] ([id number]) (ALB,T.PRO,BILI Medical Branch T,BU/BC,ALT,AST,ALK PHOS) BASIC METABOLIC PANEL 2020-08-22 10:10:00 [place] [facility] (NA, K, CL, CO2, GLUCOSE, Medica l Branch BUN, CREATININE, CA) LIPID PANEL (00111)(TOTAL 2020-08-22 10:10:00 [place] [facility] CHOLESTEROL, Medical [place] TRIGLYCERIDES, HDL) CBC WITH DIFF 2020-08-22 10:10:00 [place] [facility] POCT GLUCOSE (AUTOMATED) 2020-08-22 10:10:00 Stefania Kelly Elias [facility] POCT GLUCOSE (AUTOMATED) 2020-08-22 07:13:00 Stefania Kelly Elias [facility] POCT GLUCOSE (AUTOMATED) 2020-08-22 02:24:00 Stefania Kelly Elias [facility] POCT GLUCOSE (AUTOMATED) 2020-08-21 23:40:00 Stefania Kelly Elias [facility] POCT GLUCOSE (AUTOMATED) 2020-08-21 18:10:00 StefaniaKelly [facility] POCT GLUCOSE (AUTOMATED) 2020-08-21 13:39:00 StefaniaKelly [facility] ETHANOL 2020-08-21 12:35:[address] [facility] ACTIVATED PARTIAL 2020-08-21 12:35:00 Stefania [facility] GALV ONLY - SYPHILIS 2020-08-21 12:35:[address] [facility] IGG/IGM [facility] LACTATE DEHYDROGENASE 2020-08-21 10:09:00 Ramya, [facility] GALV/CLC ONLY - URINE 2020-08-21 10:09:00 [facility]ASSAY[facility] - 4 ER Medica l Branch PANEL URINALYSIS 2020-08-21 10:09:00 Ramya, [facility] URINE CULTURE 2020-08-21 10:09:00 [place], [facility] PROCALCITONIN 2020-08-21 10:09:00 Ramya, [facility] POCT GLUCOSE (AUTOMATED) 2020-08-21 09:41:00 StefaniaKelly [facility] PROTHROMBIN TIME / INR 2020-08-21 08:32:00 [place], [facility] ACTIVATED PARTIAL 2020-08-21 08:32:00 Ramya, [facility] C-REACTIVE PROTEIN 2020-08-21 08:31:00 Ramya, [facility] HEPATIC FUNCTION PANEL 2020-08-21 08:31:00 [place], [facility] ([id number]) (ALB,T.PRO,BILI Medical Branch T,BU/BC,ALT,AST,ALK PHOS) BASIC METABOLIC PANEL 2020-08-21 08:31:00 Ramya, [facility] (NA, K, CL, CO2, GLUCOSE, Medica l Branch BUN, CREATININE, CA) SEDIMENTATION RATE 2020-08-21 08:31:00 Ramya, [facility] CBC WITH DIFF 2020-08-21 08:31:00 [place], [facility] o f [facility] GLYCOSYLATED HEMOGLOBIN 2020-08-21 08:31:00 [place], [facility] (A1C) [facility] HIV 1/2 AG-AB WITH REFLEX 2020-08-21 08:31:00 Kelly [place] Un [facility] COVID-19 (ID NOW RAPID 2020-08-21 08:20:00 Ramya, [facility] TESTING) Medical Branch LAB ONLY COVID 2020-08-21 08:20:00 [place], [facility] INTERPRETATION [facility] Encounters Start End Encounter Admission Attending Care Care Encounter Source Date/Time Date/Time Type Type Clinicians Facility Department ID 2022-11-13 Outpatient 3 [id number] ENCPL REF [id number] [facility] 11:39:58 0201 [facility] [place] 2020-08-21 Inpatient U STEFANIA [facility] KVNG [id number] Univers 01:07:00 KELLY cantu [facility] 2022-11-14 2022-11-28 Inpatient 3 [facility] ENCPL DELVIS [id number] [facility] 20:40:00 13:29:00 shaggy 0202 [facility] [place] 2021-08-22 2021-08-22 Emergency X [facility] ERT [id number] Univers 06:21:00 08:02:00 SWEETIE [facility] [place] 2021-08-22 2021-08-22 Emergency [facility] [id number] Univers 06:21:00 08:02:00 Sweetie LOTT [id number] i ty roxana WARREN 4.2.7.2.686 [facility] [id number] [facility] 084 Branch 2021-08-09 2021-08-09 Outpatient JACQUELYN HAINES [id number] [facility] 10:27:03 10:27:03 ADRIANA lopez of Medicin e 2020-12-28 2020-12-28 Telephone [facility] [place] [facility] 1.2.840.114 [id number] Univers 00:00:00 00:00:00 Calvin H PRIMARY [id number] it y of [place] [id number] Oh dical 220 Branch 2020-12-28 2020-12-28 Telephone [facility] [place] [facility] 1.2.840.114 [id number] 00:00:00 00:00:00 Calvin H PRIMARY [id number] CARE 4.2.7.2.686 PAVILLION [id number] 220 2020-12-19 2020-12-19 Transition Tuan Peters 1.2.840.114 [id number] Univers 00:00:00 00:00:00 of Care Ruchi Braswell [id number] it y of [place]2.[place] [id number] [facility] 403 Branch 2020-12-19 2020-12-19 Transition Tuan Peters 1.2.840.114 [id number] 00:00:00 00:00:00 of Care Ruchi Braswell [id number] [place] 4.2.7.2.686 [id number] [facility] 2020-12-11 2020-12-17 [facility] Paco Lacey 1.2.840.1 14 [id number] Univers 05:11:00 16:00:00 Encounter Vika Harrisony [id number] ity of [facility] 4.2.7.2.686 [place] [id number] [facility] 096 Branch 2020-12-11 2020-12-17 Inpatient X [facility] [id number] Univers 05:11:00 16:00:00 ity of [facility] 2020-12-11 2020-12-17 [facility] Paco Lacey 1.2.840.1 14 [id number] 05:11:00 16:00:00 Encounter Vika Harrison G [place] [id number] [facility] 4.2.7.2.686 [id number] 2020-11-16 2020-11-16 Emergency X , [facility] ERT [id number] Univers 09:31:00 09:31:00 PACO cantu of [facility] 2020-11-11 2020-11-11 Orders Doctor BASILIA 1.2.840.114 [id number] Univers 00:00:00 00:00:00 Only Unassigned, NATTY [id number] ity of [place] [facility] 4.2.7.2.686 Jeff as [id number] [address] 2020-11-11 2020-11-11 Orders Doctor BASILIA 1.2.840.114 [id number] 00:00:00 00:00:00 Only Unassigned, NATTY [id number] [place] [facility] 4.2.7.2.686 [id number] 009 2020-11-07 2020-11-07 Telephone [facility] [id number] Univers 00:00:00 00:00:00 Angi Lott 350.1.13.10 ity [place].2.[place] Profess[place] [id number] [address] 2020-11-07 2020-11-07 Telephone [facility] [id number] 00:00:00 00:00:00 Angi Lott 350.1.13.10 [place] 4.2.7.2.686 Professio [id number] [address] 2020-10-30 2020-10-30 Orders Doctor BASILIA 1.2.840.114 [id number] Univers 00:00:00 00:00:00 Only Unassigned, NATTY [id number] ity of [place] [facility] 4.2.7.2.686 Jeff as [id number] [address] 2020-10-30 2020-10-30 Orders Doctor CUI 1.2.840.114 [id number] 00:00:00 00:00:00 Only Unassigned, NATTY 350.1.13.10 [facility] [facility] 4.2.7.2.686 [id number] 009 2020-09-26 2020-09-26 Telephone STONE Mccabe 1.2.840.114 [id number] Univers 00:00:00 00:00:00 Jl Renato [facility] 350.1.13.10 i ty of CLINICS 4[place]2.7.2.[place] [id number] [facility] 027 Branch 2020-09-26 2020-09-26 Telephone STONE Mccabe 1.2.840.114 [id number] 00:00:00 00:00:00 Jl Renato [facility] 350.1.13.10 CLINICS 4.2.7.2.686 [id number] 2020-09-01 2020-09-01 Orders Doctor BASILIA 1.2.840.114 [id number] Univers 00:00:00 00:00:00 Only Unassigned, NATTY 350.1.13.10 ity of [place] [facility] 4.2.7.2.686 Jeff as [id number] [facility] 009 Branch 2020-09-01 2020-09-01 Orders Doctor BASILIA 1.2.840.114 [id number] 00:00:00 00:00:00 Only Unassigned, NATTY 350.1.13.10 [facility] 4.2.7.2.686 [id number] 009 2020-08-25 2020-08-25 Transition Tuan Peters 1.2.840.114 [id number] Univers 00:00:00 00:00:00 of Care Ruchi Braswell 350.1.13.10 it y [place] [id number] [facility] 403 Branch 2020-08-25 2020-08-25 Transition Tuan Peters 1.2.840.114 [id number] 00:00:00 00:00:00 of Care Ruchi Braswell 350.1.13.10 [place] 4.2.7.2.686 [id number] 2020-08-21 2020-08-23 [facility] Kelly [place] 1. 2.840.114 [id number] Univers 01:07:00 18:35:00 Encounter Mukul Gallardo 350.1.13. 10 [facility] 4.2.7.2.686 Jeff as [id number] [place] [id number] [place] 2020-08-21 2020-08-23 [facility] Ayleen [place] 1.2.840.114 [id number] 01:07:00 18:35:00 Encounter Kelly Amaya 350.1.13.10 [facility] 4.2.7.2.686 [id number] Results Test Description Test Time Test Comments Results Result Comments Source POCT GLUCOSE (AUTOMATED) 2020-12-17 15:43:35 Test Item Value Reference Range Interpretation Comme nts POCT GLU (test code = 8638775280) 129 mg/dL 70-110 H Lab Interpretation (test code = 07328-7) Abnormal [facility] METABOLIC PANEL (NA, K, CL, CO2, GLUCOSE, BUN, CREATININE, CA)2020-12-17 11:45:07 Test Item Value Reference Range Interpretation Comments NA (test code = 137 mmol/L 135-145 7739573543) K (test code = 3.5 mmol/L 3.5-5.0 6593436716) CL (test code = 103 mmol/L 98-108 4854639691) CO2 TOTAL (test code = 26 mmol/L 23-31 4155940641) AGAP (test code = 2-16 3793203418) BUN (test code = 11 mg/dL 7-23 3471230164) GLUCOSE (test code = 175 mg/dL 70-110 H 7123074834) CREATININE (test code = 0.62 mg/dL 0.60-1.25 2083272238) CALCIUM (test code = 9.0 mg/dL 8.6-10.6 6552823337) eGFR Calculation mL/min/1.73m2 (Non-) (test code = 3854491014) eGFR Calculation mL/min/1.73m2 () (test code = 2073544905) JAMES (test code = JAMES) Association of [...] tests). Lab Interpretation Abnormal (test code = 99765-3) [facility] WITH WYCU1977-65-21 11:07:27 Test Item Value Reference Range Interpretation Comments WBC (test code = See_Comment H [Automated 8007-2) message] The sy stem which generated this result transmitted reference range : 4.20 - 10.70 10*3/?L. The reference range was not used to interpret this result as normal/abnormal . RBC (test code = See_Comment [Automated 867-8) message] The sy stem which generated this [...] RDW-SD (test code = 45.2 fL 38.5-51.6 10582-3) RDW-CV (test code = 16.9 % 12.1-15.4 H 788-0) PLT (test code = See_Comment H [Automated 777-3) message] The sy stem which generated this result transmitted reference range : 150 - 328 10*3/ ?L. The reference r torito was not used to interpret this result as normal/abnormal . MPV (test code = 8.1 fL 9.8-13.0 L 11464-8) NRBC/100 WBC (test See_Comment [Automat ed code = 3196604344) message] The system which generated this result transmitted reference range : 0.0 - 10.0 /100 WBCs. The refer ence range was not u sed to interpret th is result as normal/abnormal . NRBC x10^3 (test code <0.01 See_Comment [Auto mated = 9168513157) message] The s ystem which generated this result transmitted reference range : 10*3/?L. The reference range was not used to interpret this result as normal/abnormal . GRAN MAT (NEUT) % 72.8 % (test code = 770-8) IMM GRAN % (test code 0.60 % = 3489752885) LYMPH % (test code = 18.4 % 736-9) MONO % (test code = 5.7 % 5905-5) EOS % (test code = 1.8 % 713-8) BASO % (test code = 0.7 % 706-2) GRAN MAT x10^3(ANC) 8.23 10*3/uL 1.99-6.95 H (test code = 9454205740) IMM GRAN x10^3 (test 0.07 10*3/uL 0.00-0.06 H code = 3236440203) LYMPH x10^3 (test code 2.08 10*3/uL 1.09-3.23 = 731-0) MONO x10^3 (test code 0.65 10*3/uL 0.36-1.02 = 742-7) EOS x10^3 (test code = 0.20 10*3/uL 0.06-0.53 711-2) BASO x10^3 (test code 0.08 10*3/uL 0.01-0.09 = 704-7) Lab Interpretation Abnormal (test code = 80967-7) [facility]-12[facility]17 06:03:38 Test Item Value Reference Range Interpretation Comments POCT GLU (test code = 6324988895) 75 mg/dL 70-110 Lab Interpretation (test code = Normal 13367-2) [facility] [id number] 00:01:00 Test Item Value Reference Range Interpretation Comments VIT B6 (test code = 13.1 nmol/L 20.0-125.0 L INTERPRE TIVE 36315-8) INFORMATION: Vi tamin B6 (Pyridoxal 5-Phosphate) Pyridoxal 5'-phosphate me asured in a specimen collected follo wing an 8-hour or overnight fast accurately clara cates vitamin B6 nutritional sta tus. Non-fasting spe cimen concentration reflects recent vitamin intake. This test was develo ped and its perform ance characteristics determined by [facility]. I t has not been cleare d or approved by the [place] Food and Drug Administration. This test was perfor med in a CLIA certifie d laboratory and is intended for cl inical purposes.Perfor med By: [employer] [place] [id number] Director: Namrata Klein MD Lab Interpretation Abnormal (test code = 77462-6) [facility] TIBIA FIBULA 2 VW [id number] 23:57:09 Tricompartmental knee joint osteoarthrosis.XR TIBIA FIBULA [...] No acute fracture or dislocation.IMPRESSIONTricompartmental knee joint osteoarthrosis.[facility] GLUCOSE (AUTOMATED) 2020-12-16 23:27:00 Test Item Value Reference Range Interpretation Comments POCT GLU (test code = 3937248485) 114 mg/dL 70-110 H Lab Interpretation (test code = Abnormal 41557-0) [facility] GLUCOSE (AUTOMATED)2020-12-16 20:12:00 Test Item Value Reference Range Interpretation Comments POCT GLU (test code = 2288204718) 105 mg/dL 70-110 Lab Interpretation (test code = Normal 90148-7) [facility] GLUCOSE (AUTOMATED)2020-12-16 14:44:00 Test Item Value Reference Range Interpretation Comments POCT GLU (test code = 2769503729) 153 mg/dL 70-110 H Lab Interpretation (test code = Abnormal 96905-3) [facility] METABOLIC PANEL (NA, K, CL, CO2, GLUCOSE, BUN, CREATININE, CA)2020-12-16 14:23:00 Test Item Value Reference Range Interpretation Comments NA (test code = 138 mmol/L 135-145 8431649891) K (test code = 3.4 mmol/L 3.5-5.0 L 5686854875) CL (test code = 100 mmol/L 98-108 6140735733) CO2 TOTAL (test code = 31 mmol/L 23-31 2619006805) AGAP (test code = 2-16 6547236620) BUN (test code = 11 mg/dL 7-23 2287699628) GLUCOSE (test code = 162 mg/dL 70-110 H 4996479381) CREATININE (test code = 0.64 mg/dL 0.60-1.25 4367739388) CALCIUM (test code = 8.9 mg/dL 8.6-10.6 8078000818) eGFR Calculation mL/min/1.73m2 (Non-) (test code = 0601124207) eGFR Calculation mL/min/1.73m2 () (test code = 8532114384) JAMES (test code = JAMES) Association of [...] tests). Lab Interpretation Abnormal (test code = 49579-5) [facility] WITH [id number] 14:05:00 Test Item Value Reference Range Interpretation Comments WBC (test code = See_Comment H [Automated 7465-2) message] The sy stem which generated this result transmitted reference range : 4.20 - 10.70 10*3/?L. The reference range was not used to interpret this result as normal/abnormal . RBC (test code = See_Comment [Automated 926-8) message] The sy stem which generated this [...] RDW-SD (test code = 45.4 fL 38.5-51.6 54801-3) RDW-CV (test code = 17.0 % 12.1-15.4 H 788-0) PLT (test code = See_Comment H [Automated 777-3) message] The sy stem which generated this result transmitted reference range : 150 - 328 10*3/ ?L. The reference r torito was not used to interpret this result as normal/abnormal . MPV (test code = 8.0 fL 9.8-13.0 L 56846-2) NRBC/100 WBC (test See_Comment [Automat ed code = 3856575428) message] The system which generated this result transmitted reference range : 0.0 - 10.0 /100 WBCs. The refer ence range was not u sed to interpret th is result as normal/abnormal . NRBC x10^3 (test code <0.01 See_Comment [Auto mated = 4148347422) message] The s ystem which generated this result transmitted reference range : 10*3/?L. The reference range was not used to interpret this result as normal/abnormal . GRAN MAT (NEUT) % 70.0 % (test code = 770-8) IMM GRAN % (test code 0.70 % = 4362847144) LYMPH % (test code = 20.5 % 736-9) MONO % (test code = 7.1 % 5905-5) EOS % (test code = 1.0 % 713-8) BASO % (test code = 0.7 % 706-2) GRAN MAT x10^3(ANC) 9.44 10*3/uL 1.99-6.95 H (test code = 2126511463) IMM GRAN x10^3 (test 0.09 10*3/uL 0.00-0.06 H code = 9382794292) LYMPH x10^3 (test code 2.76 10*3/uL 1.09-3.23 = 731-0) MONO x10^3 (test code 0.96 10*3/uL 0.36-1.02 = 742-7) EOS x10^3 (test code = 0.13 10*3/uL 0.06-0.53 711-2) BASO x10^3 (test code 0.10 10*3/uL 0.01-0.09 H = 704-7) Lab Interpretation Abnormal (test code = 81910-2) [facility] Culture - Peripheral # [id number] 13:01:00 Test Item Value Reference Range Interpretation Comments Blood Culture-Aerobic No organisms No growth Previo us (test code = 92247-9) isolated prelim inary verified result was Culture In Progress on 12/11/2020 at 100 1 CSTPrevious preliminary verified result was No growth a t 24 hours on 12/12/2020 at 070 1 CSTPrevious preliminary verified result was No growth a t 48 hours on 12/13/2020 at 070 1 CSTPrevious preliminary verified result was No growth a t 72 hours on 12/14/2020 at 070 1 [employer] Blood No organisms No growth Previous Culture-Anaerobic isolated preliminar y (test code = 32252-2) verifi ed result was Culture In Progress on 12/11/2020 at 100 1 CSTPrevious preliminary verified result was No growth a t 24 hours on 12/12/2020 at 070 1 CSTPrevious preliminary verified result was No growth a t 48 hours on 12/13/2020 at 070 1 CSTPrevious preliminary verified result was No growth a t 72 hours on 12/14/2020 at 070 1 [employer] Lab Interpretation Normal (test code = 74573-7) [facility] Culture - Peripheral # [id number] 13:01:00 Test Item Value Reference Range Interpretation Comments Blood Culture-Aerobic No organisms No growth Previo us (test code = 57646-6) isolated prelim inary verified result was Culture In Progress on 12/11/2020 at 100 1 CSTPrevious preliminary verified result was No growth a t 24 hours on 12/12/2020 at 070 1 CSTPrevious preliminary verified result was No growth a t 48 hours on 12/13/2020 at 070 1 CSTPrevious preliminary verified result was No growth a t 72 hours on 12/14/2020 at 070 1 [employer] Blood No organisms No growth Previous Culture-Anaerobic isolated preliminar y (test code = 78792-2) verifi ed result was Culture In Progress on 12/11/2020 at 100 1 CSTPrevious preliminary verified result was No growth a t 24 hours on 12/12/2020 at 070 1 CSTPrevious preliminary verified result was No growth a t 48 hours on 12/13/2020 at 070 1 CSTPrevious preliminary verified result was No growth a t 72 hours on 12/14/2020 at 070 1 [employer] Lab Interpretation Normal (test code = 20236-8) [facility] GLUCOSE (AUTOMATED)2020-12-16 04:01:00 Test Item Value Reference Range Interpretation Comments POCT GLU (test code = 4558061334) 156 mg/dL 70-110 H Lab Interpretation (test code = Abnormal 72982-7) [facility] GLUCOSE (AUTOMATED)2020-12-16 00:24:00 Test Item Value Reference Range Interpretation Comments POCT GLU (test code = 5222053088) 115 mg/dL 70-110 H Lab Interpretation (test code = Abnormal 06022-5) [facility] CHEST PULMONARY [id number] 23:34:55No pulmonary emboli. No interval change in [...] stableappearance of intra and extrahepatic biliary ductal dilatation.[facility] GLUCOSE (AUTOMATED)2020-12-15 19:28:00 Test Item Value Reference Range Interpretation Comments POCT GLU (test code = 7894174400) 140 mg/dL 70-110 H Lab Interpretation (test code = Abnormal 79492-2) [facility] 15:26:00 Test Item Value Reference Range Interpretation Comments MAGNESIUM (test code = 7897102727) 2.2 mg/dL 1.7-2.4 Lab Interpretation (test code = Normal 49485-6) [facility] GLUCOSE (AUTOMATED)2020-12-15 15:15:00 Test Item Value Reference Range Interpretation Comments POCT GLU (test code = 4137045080) 181 mg/dL 70-110 H Lab Interpretation (test code = Abnormal 39920-4) [facility] (NA, K, CL, CO2, GLUCOSE, BUN, CREATININE, CA)2020-12-15 13:07:00 Test Item Value Reference Range Interpretation Comments NA (test code = 136 mmol/L 135-145 4621184332) K (test code = 3.6 mmol/L 3.5-5.0 2617929043) CL (test code = 96 mmol/L 98-108 L 7717032771) CO2 TOTAL (test code = 29 mmol/L 23-31 9437878988) AGAP (test code = 2-16 1448892996) BUN (test code = 12 mg/dL 7-23 1215691525) GLUCOSE (test code = 183 mg/dL 70-110 H 4542019770) CREATININE (test code = 0.70 mg/dL 0.60-1.25 8852263790) CALCIUM (test code = 9.2 mg/dL 8.6-10.6 5267862167) eGFR Calculation mL/min/1.73m2 (Non-) (test code = 1645834062) eGFR Calculation mL/min/1.73m2 () (test code = 8863682589) JAMES (test code = JAMES) Association of [...] tests). Lab Interpretation Abnormal (test code = 77336-5) [facility] WITH [id number] 12:32:00 Test Item Value Reference Range Interpretation [...] RDW-SD (test code = 44.4 fL 38.5-51.6 41309-4) RDW-CV (test code = 17.7 % 12.1-15.4 H 788-0) PLT (test code = See_Comment H [Automated 777-3) message] The system which generated this result transmit ronan reference range : 150 - 328 10*3/ ?L. The reference range was not u sed to interpret th is result as normal/abnormal . MPV (test code = 8.1 fL 9.8-13.0 L 53204-2) NRBC/100 WBC (test See_Comment [Automat ed code = 2166175250) message] The system which generated this result transmit ronan reference range : 0.0 - 10.0 /100 WBCs. The reference range was not used to interpret this result as normal/abnormal . NRBC x10^3 (test code <0.01 See_Comment [Auto mated = 4585565348) message] The system which generated this result transmit ronan reference range : 10*3/?L. The reference range was not used to interpret this result as normal/abnormal . GRAN MAT (NEUT) % 74.5 % (test code = 770-8) IMM GRAN % (test code 0.70 % = 9275953362) LYMPH % (test code = 17.4 % 736-9) MONO % (test code = 6.8 % 5905-5) EOS % (test code = 0.2 % 713-8) BASO % (test code = 0.4 % 706-2) GRAN MAT x10^3(ANC) 11.99 10*3/uL 1.99-6.95 H (test code = 1604039545) IMM GRAN x10^3 (test 0.11 10*3/uL 0.00-0.06 H code = 4136039475) LYMPH x10^3 (test code 2.80 10*3/uL 1.09-3.23 = 731-0) MONO x10^3 (test code 1.10 10*3/uL 0.36-1.02 H = 742-7) EOS x10^3 (test code = 0.03 10*3/uL 0.06-0.53 L 711-2) BASO x10^3 (test code 0.06 10*3/uL 0.01-0.09 = 704-7) Lab Interpretation Abnormal (test code = 98141-7) [facility]2020-12-15 04:16:00 Test Item Value Reference Range Interpretation Comments POCT GLU (test code = 7930528549) 200 mg/dL 70-110 H Lab Interpretation (test code = Abnormal 52416-5) [facility] Hospital[facility]IT[facility]IN B1 (THIAMINE), WHOLE [id number] 00:30:00 Test Item Value Reference Range Interpretation Comments Vitamin B1, Whole 136 nmol/L 70-180 INTERPRETI VE INFORMATION: Blood (test code = Vitamin B 1, Whole Blood 16060-9) This assay júnior ures the concentration o [...] clinical purposes.Perfor med By: [facility] [place], [place] [address]H aboratory Director: Namrata Klein MD [facility] GLUCOSE (AUTOMATED)2020-12-14 23:35:00 Test Item Value Reference Range Interpretation Comments POCT GLU (test code = 4257095582) 151 mg/dL 70-110 H Lab Interpretation (test code = Abnormal 26648-4) [facility] GLUCOSE (AUTOMATED)2020-12-14 19:19:00 Test Item Value Reference Range Interpretation Comments POCT GLU (test code = 2523137603) 193 mg/dL 70-110 H Lab Interpretation (test code = Abnormal 84503-2) [facility] GLUCOSE (AUTOMATED)2020-12-14 15:22:00 Test Item Value Reference Range Interpretation Comments POCT GLU (test code = 8492978322) 221 mg/dL 70-110 H Lab Interpretation (test code = Abnormal 75845-7) [facility] GLUCOSE (AUTOMATED)2020-12-14 02:37:00 Test Item Value Reference Range Interpretation Comments POCT GLU (test code = 1295661214) 210 mg/dL 70-110 H Lab Interpretation (test code = Abnormal 50186-7) [facility] GLUCOSE (AUTOMATED)2020-12-13 23:33:00 Test Item Value Reference Range Interpretation Comments POCT GLU (test code = 1626761513) 182 mg/dL 70-110 H Lab Interpretation (test code = Abnormal 38277-3) [facility] GLUCOSE (AUTOMATED)2020-12-13 18:09:00 Test Item Value Reference Range Interpretation Comments POCT GLU (test code = 6463896181) 150 mg/dL 70-110 H Lab Interpretation (test code = Abnormal 57251-5) [facility] METABOLIC PANEL (NA, K, CL, CO2, GLUCOSE, BUN, CREATININE, CA)2020-12-13 16:27:00 Test Item Value Reference Range Interpretation Comments NA (test code = 136 mmol/L 135-145 5463793377) K (test code = 3.7 mmol/L 3.5-5.0 5169942940) CL (test code = 96 mmol/L 98-108 L 9191419021) CO2 TOTAL (test code = 29 mmol/L 23-31 6093294214) AGAP (test code = 2-16 5217044884) BUN (test code = 6 mg/dL 7-23 L 0053078404) GLUCOSE (test code = 212 mg/dL 70-110 H 4949247677) CREATININE (test code = 0.61 mg/dL 0.60-1.25 5930106532) CALCIUM (test code = 9.5 mg/dL 8.6-10.6 0709437674) eGFR Calculation mL/min/1.73m2 (Non-) (test code = 5910362968) eGFR Calculation mL/min/1.73m2 () (test code = 6193526576) JAMES (test code = JAMES) Association of [...] tests). Lab Interpretation Abnormal (test code = 00338-1) [facility] WITH [id number] 16:10:00 Test Item Value Reference Range Interpretation [...] RDW-SD (test code = 43.3 fL 38.5-51.6 77303-5) RDW-CV (test code = 16.2 % 12.1-15.4 H 788-0) PLT (test code = See_Comment H [Automated 777-3) message] The sy stem which generated this result transmitted reference range : 150 - 328 10*3/ ?L. The reference r torito was not used to interpret this result as normal/abnormal . MPV (test code = 8.2 fL 9.8-13.0 L 12899-7) NRBC/100 WBC (test See_Comment [Automat ed code = 3119113580) message] The system which generated this result transmitted reference range : 0.0 - 10.0 /100 WBCs. The refer ence range was not u sed to interpret th is result as normal/abnormal . NRBC x10^3 (test code <0.01 See_Comment [Auto mated = 7945450136) message] The s ystem which generated this result transmitted reference range : 10*3/?L. The reference range was not used to interpret this result as normal/abnormal . GRAN MAT (NEUT) % 86.2 % (test code = 770-8) IMM GRAN % (test code 0.70 % = 0701137129) LYMPH % (test code = 10.2 % 736-9) MONO % (test code = 2.5 % 5905-5) EOS % (test code = 0.1 % 713-8) BASO % (test code = 0.3 % 706-2) GRAN MAT x10^3(ANC) 9.61 10*3/uL 1.99-6.95 H (test code = 6556917929) IMM GRAN x10^3 (test 0.08 10*3/uL 0.00-0.06 H code = 0309463117) LYMPH x10^3 (test code 1.14 10*3/uL 1.09-3.23 = 731-0) MONO x10^3 (test code 0.28 10*3/uL 0.36-1.02 L = 742-7) EOS x10^3 (test code = <0.03 0.06-0.53 L 711-2) BASO x10^3 (test code 0.03 10*3/uL 0.01-0.09 = 704-7) Lab Interpretation Abnormal (test code = 72181-4) [facility]2020-12-13 14:16:00 Test Item Value Reference Range Interpretation Comments POCT GLU (test code = 3215353092) 236 mg/dL 70-110 H Lab Interpretation (test code = Abnormal 70825-5) [facility] COVID [id number] 04:58:00COVID DMT InterpretationInterpretation/Recommendations: Molecular NAAT Tests for [...] medical record. [facility] DmzqefeWDFQ-IfG-3 Rapid ID NOW (no units) ? ? Date ? Value ? 12/11/2020 ? Not Detected ? ? ? 11/16/2020 ? Not Detected ? ? ? 08/21/2020 ? Not Detected ? [facility] 2020-12-13 03:11:00 Test Item Value Reference Range Interpretation Comments POCT GLU (test code = 3346164366) 171 mg/dL 70-110 H Lab Interpretation (test code = Abnormal 71207-8) [facility] GLUCOSE (AUTOMATED)2020-12-13 00:00:00 Test Item Value Reference Range Interpretation Comments POCT GLU (test code = 8415571544) 118 mg/dL 70-110 H Lab Interpretation (test code = Abnormal 97487-4) [facility]2020-12-12 20:29:00 Test Item Value Reference Range Interpretation Comments POCT GLU (test code = 7880291611) 173 mg/dL 70-110 H Lab Interpretation (test code = Abnormal 21263-9) [facility] HospitalUS ABDOMEN [id number] 19:56:17 1. ?Hepatic steatosis. However, limited evaluation [...] main portal veinwasevaluated with color Doppler imaging. [employer] images were obtainedfor the record. COMPARISON: Ultrasound [...] normal where visualized. SPLEEN:No images were obtained. Ormb, Radiant Results Inft User - 12/12/2020 1:57 PM CSTEXAM: US ABDOMEN LIMITEDHISTORY: 70 years-old male with RUQ ultrasound to assess for common bileduct dilation .TECHNIQUE: Limited abdominal ultrasound focused on the liver, biliarysystem, pancreas, and spleen was performed. The main portal vein wasevaluated with color Doppler imaging. [employer] images wereobtainedfor the record.COMPARISON: Ultrasound abdomen 11/17/2028. [...] study and agree with the abovereport.[facility]2020-12-12 19:24:00 Test Item Value Reference Range Interpretation Comments POCT GLU (test code = 6387482147) 230 mg/dL 70-110 H Lab Interpretation (test code = Abnormal 68365-2) [facility] CHEST 1 [id number] 15:16:46 Low lung volumes with mild perihilar [...] study and agree with theabove report.[facility]2020-12-12 14:34:00 Test Item Value Reference Range Interpretation Comments POCT GLU (test code = 7514820693) 225 mg/dL 70-110 H Lab Interpretation (test code = Abnormal 69163-8) [facility] HospitalURINE [id number] 13:28:00 Test Item Value Reference Range Interpretation Comments URINE CULTURE (test < 10,000 CFU/mL mixed code = 630-4) aerobic organisms - suggests endogenous microbial contamination [facility] HospitalBasic Met[facility] Panel (NA, K, CL, CO2, GLUCOSE, BUN, CREATININE, CA)2020-12-12 10:05:00 Test Item Value Reference Range Interpretation Comments NA (test code = 136 mmol/L 135-145 2614772980) K (test code = 3.5 mmol/L 3.5-5.0 5403169157) CL (test code = 100 mmol/L 98-108 9975682928) CO2 TOTAL (test code = 31 mmol/L 23-31 4911751615) AGAP (test code = 2-16 8151055489) BUN (test code = 7 mg/dL 7-23 9297090180) GLUCOSE (test code = 259 mg/dL 70-110 H 0072922926) CREATININE (test code = 0.63 mg/dL 0.60-1.25 2013897599) CALCIUM (test code = 8.5 mg/dL 8.6-10.6 L 8559617502) eGFR Calculation mL/min/1.73m2 (Non-) (test code = 0669584945) eGFR Calculation mL/min/1.73m2 () (test code = 3012680646) JAMES (test code = JAMES) Association of [...] tests). Lab Interpretation Abnormal (test code = 60502-7) [facility] HospitalMagnesium [id number] 10:05:00 Test Item Value Reference Range Interpretation Comments MAGNESIUM (test code = 8865105168) 1.9 mg/dL 1.7-2.4 Lab Interpretation (test code = Normal 20332-9) [facility] with [id number] 09:48:00 Test Item Value Reference Range Interpretation [...] RDW-SD (test code = 46.0 fL 38.5-51.6 40267-9) RDW-CV (test code = 16.1 % 12.1-15.4 H 788-0) PLT (test code = See_Comment H [Automated 777-3) message] The sy stem which generated this result transmitted reference range : 150 - 328 10*3/ ?L. The reference r torito was not used to interpret this result as normal/abnormal . MPV (test code = 8.6 fL 9.8-13.0 L 01706-1) NRBC/100 WBC (test See_Comment [Automat ed code = 9075494388) message] The system which generated this result transmitted reference range : 0.0 - 10.0 /100 WBCs. The refer ence range was not u sed to interpret th is result as normal/abnormal . NRBC x10^3 (test code <0.01 See_Comment [Auto mated = 1472910852) message] The s ystem which generated this result transmitted reference range : 10*3/?L. The reference range was not used to interpret this result as normal/abnormal . GRAN MAT (NEUT) % 70.2 % (test code = 770-8) IMM GRAN % (test code 0.30 % = 3418250701) LYMPH % (test code = 18.8 % 736-9) MONO % (test code = 5.0 % 5905-5) EOS % (test code = 5.2 % 713-8) BASO % (test code = 0.5 % 706-2) GRAN MAT x10^3(ANC) 6.05 10*3/uL 1.99-6.95 (test code = 7441799555) IMM GRAN x10^3 (test 0.03 10*3/uL 0.00-0.06 code = 9198301614) LYMPH x10^3 (test code 1.62 10*3/uL 1.09-3.23 = 731-0) MONO x10^3 (test code 0.43 10*3/uL 0.36-1.02 = 742-7) EOS x10^3 (test code = 0.45 10*3/uL 0.06-0.53 711-2) BASO x10^3 (test code 0.04 10*3/uL 0.01-0.09 = 704-7) Lab Interpretation Abnormal (test code = 04618-5) [facility]2020-12-12 03:42:00 Test Item Value Reference Range Interpretation Comments POCT GLU (test code = 196 mg/dL 70-110 H Notifi ed Provider 6006949840) Lab Interpretation (test Abnormal code = 24005-3) [facility] HospitalFOLATE2021-03-02 02:24:00 Test Item Value Reference Range Interpretation Comments FOLATE SER (test code = 4367938150) 5.8 ng/mL 3.0-20.0 Lab Interpretation (test code = Normal 37370-8) [facility] HospitalVITAMIN B12, [id number] 00:55:00 Test Item Value Reference Range Interpretation Comments VIT B12 (test code = 844 pg/mL 240-930 9348595378) JAMES (test code = JAMES) Biotin has been reported to cause a positive bias, interpret results relative to patient's use of biotin. Lab Interpretation (test Normal code = 12789-4) [facility]2020-12-12 00:14:00 Test Item Value Reference Range Interpretation Comments POCT GLU (test code = 2933485094) 164 mg/dL 70-110 H Lab Interpretation (test code = Abnormal 68853-6) [facility] HospitalCREATINE [id number] 23:42:00 Test Item Value Reference Range Interpretation Comments CK (test code = 0474996014) <20 33-194 L Lab Interpretation (test code = Abnormal 74303-3) [facility] HospitalTHYROID STIMULATING [id number] 23:17:00 Test Item Value Reference Range Interpretation Comments TSH (test code = See_Comment Biotin has been 0011466331) reported to cau se a negative bias, interpret resul ts relative to pat ient's use of biotin. [Automated mess age] The system [employer] h generated this result transmitted ref erence range: 0.45 - 4 .70 mIU/L. The refe rence range was not u sed to interpret this result as normal/abnor mal. Lab Interpretation (test Normal code = 96571-4) [facility] HospitalXR HIPS 3 VW [id number] 21:41:53No appreciable fracture lines. RL: 6200 ICAL [...] No osseous erosions.IMPRESSIONNo appreciable fracture lines.RL: 6200 [facility]PROCAL[facility]IN[facility] 20:00:00 Test Item Value Reference Range Interpretation Comments Procalcitonin (test 0.13 ng/mL <0.07 H code = 9869396383) JAMES (test code = JAMES) INTERPRETATION OF [...] biotics/default.asp Lab Interpretation Abnormal (test code = 47335-8) [facility] HospitalPOMI GLUCOSE (AUTOMATED)2020-12-11 19:07:00 Test Item Value Reference Range Interpretation Comments POCT GLU (test code = 1012731931) 274 mg/dL 70-110 H Lab Interpretation (test code = Abnormal 80373-4) [facility] HospitalMAGNESIUM2021-03-01 18:31:00 Test Item Value Reference Range Interpretation Comments MAGNESIUM (test code = 0203407150) 1.9 mg/dL 1.7-2.4 Lab Interpretation (test code = Normal 24817-9) [facility] HospitalFERRITIN [id number] 18:31:00 Test Item Value Reference Range Interpretation Comments FERRITIN (test code = 178.0 ng/mL 18.0-464.0 0419857801) JAMES (test code = JAMES) Biotin has been reported to cause a negative bias, interpret results relative to patient's use of biotin. Lab Interpretation (test Normal code = 59036-1) [facility] HEAD WO [id number] 14:36:47 No acute intracranial abnormality. Dilated ventricles [...] study and agree with the abovereport.[facility]YSIS2021-[facility] 14:28:00 Test Item Value Reference Range Interpretation Comments APPEARANCE (test code = Clear Clear 8679734915) COLOR (test code = Yellow Yellow 7082639093) PH (test code = 4.8-8.0 4052054998) SP GRAVITY (test code = 1.003-1.030 8334766470) GLU U QUAL (test code = 500 mg/dL Normal A 8967940833) BLOOD (test code = Negative Negative 2749989827) KETONES (test code = 5 mg/dL Negative A 6795302146) PROTEIN (test code = Negative Negative 2887-8) UROBILIN (test code = Normal Normal 7099261192) BILIRUBIN (test code = Negative Negative 6007996035) NITRITE (test code = Negative Negative 5282720593) LEUK RYAN (test code = Negative Negative 2997972459) RBC/HPF (test code = See_Comment [Autom ated message] 9550727676) The system [employer] generated this result transmit ronan reference range : 0 - 3 HPF. The refe rence range was not u sed to interpret th is result as normal/abnormal . WBC/HPF (test code = See_Comment [Autom ated message] 0221573516) The system [employer] generated this result transmit ronan reference range : 0 - 5 HPF. The refe rence range was not u sed to interpret th is result as normal/abnormal . BACTERIA (test code = Negative Negative 0668502327) MUCOUS (test code = Slight Negative LPF A 1470018158) SQ EPITH (test code = HPF 3438987753) Lab Interpretation (test Abnormal code = 36920-0) [facility] HospitalCOVID[facility] (ID NOW RAPID TESTING)2020-12-11 13:10:00 Test Item Value Reference Range Interpretation Comments SARS-CoV-2 Rapid ID NOW Not Detected Not Detected (test code = 66631-0) JAMES (test code = JAMES) ID NOW COVID-19 Assay is an isothermal nucleic acid amplification test intended for the qualitative detection of nucleic acid from SARS-CoV-2 viral RNA in nasopharyngeal (DENTAL PRACTITIONER) specimens. It is used under Emergency Use [...] indicated. Lab Interpretation Normal (test code = 26534-2) [facility]. METABOLIC PANEL (10068)2020-12-11 12:29:00 Test Item Value Reference Range Interpretation Comments NA (test code = 136 mmol/L 135-145 2472915650) K (test code = 3.5 mmol/L 3.5-5.0 5388261994) CL (test code = 95 mmol/L 98-108 L 0172091306) CO2 TOTAL (test code = 35 mmol/L 23-31 H 5714707216) AGAP (test code = 2-16 1925439006) BUN (test code = 9 mg/dL 7-23 4967326930) GLUCOSE (test code = 329 mg/dL 70-110 H 5065723847) CREATININE (test code = 0.72 mg/dL 0.60-1.25 7495937030) TOTAL BILI (test code = 0.6 mg/dL 0.1-1.6 2520992538) CALCIUM (test code = 9.0 mg/dL 8.6-10.6 4923086590) T PROTEIN (test code = 6.8 g/dL 6.3-8.2 0151676508) ALBUMIN (test code = 3.8 g/dL 3.5-5.0 6324200912) ALK PHOS (test code = 288 U/L 34-122 H 7476274166) ALTv (test code = 46 U/L 5-50 1742-6) AST(SGOT) (test code = 38 U/L 13-40 2678972222) eGFR Calculation mL/min/1.73m2 (Non-) (test code = 7055745025) eGFR Calculation mL/min/1.73m2 () (test code = 9549929761) JAMES (test code = JAMES) Association of [...] tests). Lab Interpretation Abnormal (test code = 25098-3) [facility] HospitalLactic Acid Whole [id number] 12:23:00 Test Item Value Reference Range Interpretation Comments LACTIC ACID (test code = 2.09 mmol/L 0.50-2.20 1742379490) Lab Interpretation (test code = Normal 16310-6) [facility] WITH [id number] 12:17:00 Test Item Value Reference Range Interpretation Comments WBC (test code = See_Comment H [Automated 8534-2) message] The sy stem which generated this result transmitted reference range : 4.20 - 10.70 10*3/?L. The reference range was not used to interpret this result as normal/abnormal . RBC (test code = See_Comment [Automated 889-8) message] The sy stem which [...] RDW-SD (test code = 44.9 fL 38.5-51.6 68594-5) RDW-CV (test code = 15.9 % 12.1-15.4 H 788-0) PLT (test code = See_Comment H [Automated 777-3) message] The sy stem which generated this result transmitted reference range : 150 - 328 10*3/ ?L. The reference r torito was not used to interpret this result as normal/abnormal . MPV (test code = 8.3 fL 9.8-13.0 L 18168-0) NRBC/100 WBC (test See_Comment [Automat ed code = 1612139407) message] The system which generated this result transmitted reference range : 0.0 - 10.0 /100 WBCs. The refer ence range was not u sed to interpret th is result as normal/abnormal . NRBC x10^3 (test code <0.01 See_Comment [Auto mated = 5285923431) message] The s ystem which generated this result transmitted reference range : 10*3/?L. The reference range was not used to interpret this result as normal/abnormal . GRAN MAT (NEUT) % 77.9 % (test code = 770-8) IMM GRAN % (test code 0.50 % = 6051162137) LYMPH % (test code = 12.2 % 736-9) MONO % (test code = 5.2 % 5905-5) EOS % (test code = 3.7 % 713-8) BASO % (test code = 0.5 % 706-2) GRAN MAT x10^3(ANC) 9.57 10*3/uL 1.99-6.95 H (test code = 4121877732) IMM GRAN x10^3 (test 0.06 10*3/uL 0.00-0.06 code = 4967091064) LYMPH x10^3 (test code 1.50 10*3/uL 1.09-3.23 = 731-0) MONO x10^3 (test code 0.64 10*3/uL 0.36-1.02 = 742-7) EOS x10^3 (test code = 0.46 10*3/uL 0.06-0.53 711-2) BASO x10^3 (test code 0.06 10*3/uL 0.01-0.09 = 704-7) Lab Interpretation Abnormal (test code = 58380-4) [facility]LAB ONLY COVID [id number] 18:43:00COVID DMT InterpretationInterpretation/Recommendations: Molecular NAAT Test Results [...] a nasopharyngeal sample, there is approximately a htl-is-rqjpp chance that the patient was infected and [...] aggregate data pooled from the [facility] medical recordincluding both current and prior COVID-19 related testing results for the following tests offered atour institution:A. Tests for the Identification of SARS-CoV-2 RNA:SARS-CoV-2 PCR assays including Jackson Aptima, Jackson Fusion, Barrett RealTime, and [employer] Juliet Xpert Xpress. SARS-CoV-2 Rapid ID NOW by the ID NOW assay. ? B. Tests for the Identification of SARS-CoV-2 Antibodies: Chemiluminescent immunoassays including Access SARS-CoV-2 IgM (DXI 600), Better World BooksS Kvpz-HHVL-DkM-2 IgG (Vitros 5600 and Vitros 3600), and Barrett SARS-CoV-2 IgG (NEURO UROLOGIST I System). These interpretation comments assume that only the above testing was utilized and that the approved acceptable specimen type(s) were used for a given test. These interpretations are autopopulated into [employer] based on computerized algorithms matching an interpretation [...] this setting. [facility] SERVICESCOVID PnikrrhSNMY-HdB-9 Rapid ID NOW (no units) ? ? Date ? Value ? 08/21/2020 ? Not Detected ? [facility]Un[facility]2020-08-23 18:25:00 Test Item Value Reference Range Interpretation Comments POCT GLU (test code = 9800749949) 297 mg/dL 70-110 H Lab Interpretation (test code = Abnormal 90021-8) [facility] GLUCOSE (AUTOMATED)2020-08-23 14:25:00 Test Item Value Reference Range Interpretation Comments POCT GLU (test code = 9678802869) 181 mg/dL 70-110 H Lab Interpretation (test code = Abnormal 12341-9) [facility] Metabolic Panel (NA, K, CL, CO2, GLUCOSE, BUN, CREATININE, CA)2020-08-23 11:45:00 Test Item Value Reference Range Interpretation Comments NA (test code = 132 mmol/L 135-145 L 3441881888) K (test code = 4.0 mmol/L 3.5-5 0216783449) CL (test code = 96 mmol/L 98-108 L 7619820501) CO2 TOTAL (test code = 33 mmol/L 23-31 H 1894439397) AGAP (test code = 2-16 9054129614) BUN (test code = 9 mg/dL 7-23 4330589593) GLUCOSE (test code = 176 mg/dL 70-110 H 7836676252) CREATININE (test code = 0.66 mg/dL 0.6-1.25 2989515184) CALCIUM (test code = 8.5 mg/dL 8.6-10.6 L 4140280161) eGFR Calculation mL/min/1.73m2 (Non-) (test code = 3599466077) eGFR Calculation mL/min/1.73m2 () (test code = 3072117098) JAMES (test code = JAMES) Association of [...] tests). Lab Interpretation Abnormal (test code = 49573-8) [facility] HospitalMagnesium [id number] 11:45:00 Test Item Value Reference Range Interpretation Comments MAGNESIUM (test code = 4805105414) 2.0 mg/dL 1.7-2.4 Lab Interpretation (test code = Normal 01079-6) [facility] with [id number] 11:38:00 Test Item Value Reference Range Interpretation Comments WBC (test code = See_Comment [Automated 9156-2) message] The sy stem which generated this result transmitted reference range : 4.20 - 10.70 10*3/?L. The reference range was not used to interpret this result as normal/abnormal . RBC (test code = See_Comment [Automated 285-7) message] The sy stem which generated this [...] RDW-SD (test code = 41.8 fL 38.5-51.6 17902-2) RDW-CV (test code = 14.3 % 12.1-15.4 788-0) PLT (test code = See_Comment H [Automated 777-3) message] The sy stem which generated this result transmitted reference range : 150 - 328 10*3/ ?L. The reference r torito was not used to interpret this result as normal/abnormal . MPV (test code = 8.0 fL 9.8-13 L 47270-8) NRBC/100 WBC (test See_Comment [Automat ed code = 8446408340) message] The system which generated this result transmitted reference range : 0.0 - 10.0 /100 WBCs. The refer ence range was not u sed to interpret th is result as normal/abnormal . NRBC x10^3 (test code <0.01 See_Comment [Auto mated = 2535079761) message] The s ystem which generated this result transmitted reference range : 10*3/?L. The reference range was not used to interpret this result as normal/abnormal . GRAN MAT (NEUT) % 61.5 % (test code = 770-8) IMM GRAN % (test code 2.00 % = 3413681863) LYMPH % (test code = 25.5 % 736-9) MONO % (test code = 6.3 % 5905-5) EOS % (test code = 3.7 % 713-8) BASO % (test code = 1.0 % 706-2) GRAN MAT x10^3(ANC) 5.29 10*3/uL 1.99-6.95 (test code = 8107197752) IMM GRAN x10^3 (test 0.17 10*3/uL 0-0.06 H code = 8925277154) LYMPH x10^3 (test code 2.19 10*3/uL 1.09-3.23 = 731-0) MONO x10^3 (test code 0.54 10*3/uL 0.36-1.02 = 742-7) EOS x10^3 (test code = 0.32 10*3/uL 0.06-0.53 711-2) BASO x10^3 (test code 0.09 10*3/uL 0.01-0.09 = 704-7) Lab Interpretation Abnormal (test code = 80748-0) [facility] GLUCOSE (AUTOMATED)2020-08-23 10:22:00 Test Item Value Reference Range Interpretation Comments POCT GLU (test code = 8499120700) 164 mg/dL 70-110 H Lab Interpretation (test code = Abnormal 38803-6) [facility] GLUCOSE (AUTOMATED)2020-08-23 05:56:00 Test Item Value Reference Range Interpretation Comments POCT GLU (test code = 1740556376) 242 mg/dL 70-110 H Lab Interpretation (test code = Abnormal 15702-3) [facility] GLUCOSE (AUTOMATED)2020-08-23 03:02:00 Test Item Value Reference Range Interpretation Comments POCT GLU (test code = 7680579737) 210 mg/dL 70-110 H Lab Interpretation (test code = Abnormal 89900-4) [facility] GLUCOSE (AUTOMATED)2020-08-22 23:40:00 Test Item Value Reference Range Interpretation Comments POCT GLU (test code = 1232867303) 267 mg/dL 70-110 H Lab Interpretation (test code = Abnormal 67165-4) [facility] GLUCOSE (AUTOMATED)2020-08-22 19:08:00 Test Item Value Reference Range Interpretation Comments POCT GLU (test code = 7718776550) 191 mg/dL 70-110 H Lab Interpretation (test code = Abnormal 53729-8) [facility] GLUCOSE (AUTOMATED)2020-08-22 13:50:00 Test Item Value Reference Range Interpretation Comments POCT GLU (test code = 1989198031) 174 mg/dL 70-110 H Lab Interpretation (test code = Abnormal 40853-0) [facility] HospitalURINE [id number] 12:59:00 Test Item Value Reference Range Interpretation Comments URINE CULTURE (test No aerobic growth (< code = 630-4) 1000 CFU/mL) [facility] with [id number] 11:28:00 Test Item Value Reference Range Interpretation [...] RDW-SD (test code = 42.5 fL 38.5-51.6 18130-7) RDW-CV (test code = 14.5 % 12.1-15.4 788-0) PLT (test code = See_Comment H [Automated 777-3) message] The sy stem which generated this result transmitted reference range : 150 - 328 10*3/ ?L. The reference r torito was not used to interpret this result as normal/abnormal . MPV (test code = 8.0 fL 9.8-13 L 76883-4) NRBC/100 WBC (test See_Comment [Automat ed code = 1737540082) message] The system which generated this result transmitted reference range : 0.0 - 10.0 /100 WBCs. The refer ence range was not u sed to interpret th is result as normal/abnormal . NRBC x10^3 (test code <0.01 See_Comment [Auto mated = 3091799988) message] The s ystem which generated this result transmitted reference range : 10*3/?L. The reference range was not used to interpret this result as normal/abnormal . GRAN MAT (NEUT) % 69.1 % (test code = 770-8) IMM GRAN % (test code 2.20 % = 5200103364) LYMPH % (test code = 20.9 % 736-9) MONO % (test code = 5.8 % 5905-5) EOS % (test code = 1.0 % 713-8) BASO % (test code = 1.0 % 706-2) GRAN MAT x10^3(ANC) 6.51 10*3/uL 1.99-6.95 (test code = 1862642000) IMM GRAN x10^3 (test 0.21 10*3/uL 0-0.06 H code = 8057400494) LYMPH x10^3 (test code 1.97 10*3/uL 1.09-3.23 = 731-0) MONO x10^3 (test code 0.55 10*3/uL 0.36-1.02 = 742-7) EOS x10^3 (test code = 0.09 10*3/uL 0.06-0.53 711-2) BASO x10^3 (test code 0.09 10*3/uL 0.01-0.09 = 704-7) BASO STIPPLING (test Present A code = 703-9) BANDS (test code = Increased A 8834059372) TOXIC CHANGES (test Present A code = 803-7) Lab Interpretation Abnormal (test code = 74553-3) [facility] Metabolic Panel (NA, K, CL, CO2, GLUCOSE, BUN, CREATININE, CA)2020-08-22 11:12:00 Test Item Value Reference Range Interpretation Comments NA (test code = 135 mmol/L 135-145 6959810095) K (test code = 3.6 mmol/L 3.5-5 1581549195) CL (test code = 99 mmol/L 98-108 9195810057) CO2 TOTAL (test code = 31 mmol/L 23-31 5448971464) AGAP (test code = 2-16 7962867668) BUN (test code = 9 mg/dL 7-23 7873405475) GLUCOSE (test code = 198 mg/dL 70-110 H 0713383325) CREATININE (test code = 0.72 mg/dL 0.6-1.25 5398763966) CALCIUM (test code = 8.3 mg/dL 8.6-10.6 L 4939483691) eGFR Calculation mL/min/1.73m2 (Non-) (test code = 3660075945) eGFR Calculation mL/min/1.73m2 () (test code = 0342372077) JAMES (test code = JAMES) Association of [...] tests). Lab Interpretation Abnormal (test code = 18421-2) [facility] HospitalMagnesium [id number] 11:12:00 Test Item Value Reference Range Interpretation Comments MAGNESIUM (test code = 4867616379) 2.0 mg/dL 1.7-2.4 Lab Interpretation (test code = Normal 04855-0) [facility]Total Cholesterol, Triglycerides, HDL) - [id number] 11:12:00 Test Item Value Reference Range Interpretation Comments CHOL (test code = 155 mg/dL 120-200 9294263790) HDL (test code = 42 mg/dL >40 0503351419) HDLC RATIO (test code = See_Comment [Au tomated message] 1935149072) The system [employer] generated this result transmit ronan reference range : <=5.0. The refe rence range was not u sed to interpret th is result as normal/abnormal . TRIG (test code = 186 mg/dL 30-170 H 3750679880) LDL CHOL (test code = 76 mg/dL See_Comment [Auto mated message] 95358-8) The system [employer] generated this result transmit ronan reference range : <=160. The refe rence range was not u sed to interpret th is result as normal/abnormal . VLDL (test code = 37 mg/dL 5-60 3137402221) Lab Interpretation (test Abnormal code = 33223-0) [facility] HospitalHEPATIC FUNCTION PANEL (68756) (ALB,T.PRO,BILI T,BU/BC,ALT,AST,ALK PHOS)2020-08-22 11:12:00 Test Item Value Reference Range Interpretation Comments TOTAL BILI (test code = 8773706369) 0.6 mg/dL 0.1-1.1 BILI UNCON (test code = 1487371999) 0.2 mg/dL 0.1-1.1 BILI CONJ (test code = 6074828122) 0.0 mg/dL 0-0.3 T PROTEIN (test code = 9797575220) 6.0 g/dL 6.3-8.2 L ALBUMIN (test code = 4761200326) 2.8 g/dL 3.5-5 L ALK PHOS (test code = 6504153120) 222 U/L 34-122 H ALTv (test code = 1742-6) 27 U/L 5-50 AST(SGOT) (test code = 0582940931) 30 U/L 13-40 Lab Interpretation (test code = Abnormal 74465-2) [facility]PO[facility] (AUT[facility]ATED)2020-08-22 10:11:00 Test Item Value Reference Range Interpretation Comments POCT GLU (test code = 8270730100) 196 mg/dL 70-110 H Lab Interpretation (test code = Abnormal 69478-4) [facility] GLUCOSE (AUTOMATED)2020-08-22 07:15:00 Test Item Value Reference Range Interpretation Comments POCT GLU (test code = 5737296713) 183 mg/dL 70-110 H Lab Interpretation (test code = Abnormal 24893-0) [facility] GLUCOSE (AUTOMATED)2020-08-22 02:30:00 Test Item Value Reference Range Interpretation Comments POCT GLU (test code = 6332902514) 295 mg/dL 70-110 H Lab Interpretation (test code = Abnormal 25314-3) [facility] GLUCOSE (AUTOMATED)2020-08-21 23:46:00 Test Item Value Reference Range Interpretation Comments POCT GLU (test code = 4153874004) 258 mg/dL 70-110 H Lab Interpretation (test code = Abnormal 58769-1) [facility] HospitalC-REACTIVE [id number] 18:50:00 Test Item Value Reference Range Interpretation Comments CRP (test code = 6139426099) 15.5 mg/dL <0.8 H Lab Interpretation (test code = Abnormal 28590-7) [facility] GLUCOSE (AUTOMATED)2020-08-21 18:21:00 Test Item Value Reference Range Interpretation Comments POCT GLU (test code = 6002772472) 297 mg/dL 70-110 H Lab Interpretation (test code = Abnormal 42082-5) [facility] HospitalETHANOL2020-11-09 16:24:00 Test Item Value Reference Range Interpretation Comments ALCOHOL (test code = <10 mg/dL 2136203271) JAMES (test code = Toxic Greater than or JAMES) equal to 80 mg/dL. NOTE: Whole blood values are approximately 10% to 15% lower than serum and plasma. [facility] HospitalGALV/CLC ONLY - URINE DRUG (IMMUNOASSAY) - 4 ER [id number] 15:36:00 Test Item Value Reference Range Interpretation Comments AMPHET (test code = Negative Negative 5411107924) Cocaine Metabolite (test Negative Negative code = 7303993993) OPIATES (test code = Presumptive Positive Negative A 7279923832) THC (test code = Negative Negative 5674165613) JAMES (test code = JAMES) Urine Drug Cutoff Ranges Amphetamine: ? 1,000 ng/mLCocaine: ? 150 ng/mLOpiates: ? 300 ng/mLCannabinoids: ?50 ng/mL The results are to be used only for medical (i.e., treatment) purposes. Unconfirmed screening results must not be used for non-medical purposes (e.g., employment testing, legal testing). Lab Interpretation (test Abnormal code = 88609-3) [facility] HospitalGALV ONLY - SYPHILIS [id number] 15:04:00 Test Item Value Reference Range Interpretation Comments Syphilis IgG/IgM (test Non-reactive Non-reactive code = 82004-3) JAMES (test code = JAMES) Non-reactive - No serologic evidence of T. pallidum infection. Cannot exclude incubating or early syphilis. Submit a second specimen in 2-4 weeks if syphilis is clinically suspected. Equivocal - Further testing to follow. Reactive - Further testing to follow. Lab Interpretation (test Normal code = 93753-5) [facility] HospitalUrinalysis2020-11-09 14:52:00 Test Item Value Reference Range Interpretation Comments APPEARANCE (test code = Clear Clear 7784972886) COLOR (test code = Yellow Yellow 8829284791) PH (test code = 4.8-8.0 2950459378) SP GRAVITY (test code = 1.003-1.030 1809419868) GLU U QUAL (test code = 500 mg/dL Normal A 7501231085) BLOOD (test code = Negative Negative 4165413652) KETONES (test code = 20 mg/dL Negative A 5757655612) PROTEIN (test code = Negative Negative 2887-8) UROBILIN (test code = Normal Normal 4934910087) BILIRUBIN (test code = Negative Negative 3251117209) NITRITE (test code = Negative Negative 0459708990) LEUK RYAN (test code = Negative Negative 0548931252) RBC/HPF (test code = <1 See_Comment [Autom ated message] 0379964550) The system [employer] generated this result transmit ronan reference range : 0 - 3 HPF. The refe rence range was not u sed to interpret th is result as normal/abnormal . WBC/HPF (test code = See_Comment [Autom ated message] 0800753357) The system [employer] generated this result transmit ronan reference range : 0 - 5 HPF. The refe rence range was not u sed to interpret th is result as normal/abnormal . BACTERIA (test code = Negative Negative 8565054507) MUCOUS (test code = Slight Negative LPF A 4867876470) Lab Interpretation (test Abnormal code = 65859-6) [facility] HospitalACTIVATED PARTIAL THRMPLAS [id number] 13:45:00 Test Item Value Reference Range Interpretation Comments APTT Patient (test code = See_Comment [ Automated message] 3173-2) The system [employer] generated this result transmitted ref erence range: 26 - 36 Seconds. The re ference range was not u sed to interpret this result as normal/abnor mal. Lab Interpretation (test Normal code = 28969-7) [facility] HospitalPO[facility] (AUT[facility]ATED)2020-08-21 13:45:00 Test Item Value Reference Range Interpretation Comments POCT GLU (test code = 3333546353) 246 mg/dL 70-110 H Lab Interpretation (test code = Abnormal 12365-1) [facility] HospitalHIV 1/2 AG-AB WITH [id number] 12:32:00 Test Item Value Reference Range Interpretation Comments HIV Negative Negative Semi-quantitative (test code = 72000-3) JAMES (test code = Non-reactive for HIV-1 JAMES) antigen and HIV-1/HIV-2 antibodies. ?No laboratory evidence of HIV infection. ?Repeat in 2-4 weeks if acute HIV infection is suspected. [facility] HospitalCBC WITH [id number] 12:18:00 Test Item Value Reference Range Interpretation Comments WBC (test code = See_Comment [Automated 2247-2) message] The sy stem which generated this result transmitted reference range : 4.20 - 10.70 10*3/?L. The reference range was not used to interpret this result as normal/abnormal . RBC (test code = See_Comment [Automated 998-1) message] The sy stem which generated this [...] RDW-SD (test code = 44.4 fL 38.5-51.6 51467-8) RDW-CV (test code = 14.5 % 12.1-15.4 788-0) PLT (test code = See_Comment H [Automated 777-3) message] The sy stem which generated this result transmitted reference range : 150 - 328 10*3/ ?L. The reference r torito was not used to interpret this result as normal/abnormal . MPV (test code = 8.5 fL 9.8-13 L 67653-0) NRBC/100 WBC (test See_Comment [Automat ed code = 8392595168) message] The system which generated this result transmitted reference range : 0.0 - 10.0 /100 WBCs. The refer ence range was not u sed to interpret th is result as normal/abnormal . NRBC x10^3 (test code <0.01 See_Comment [Auto mated = 0986365537) message] The s ystem which generated this result transmitted reference range : 10*3/?L. The reference range was not used to interpret this result as normal/abnormal . GRAN MAT (NEUT) % 90.4 % (test code = 770-8) IMM GRAN % (test code 1.30 % = 9667733768) LYMPH % (test code = 7.1 % 736-9) MONO % (test code = 0.5 % 5905-5) EOS % (test code = 0.1 % 713-8) BASO % (test code = 0.6 % 706-2) GRAN MAT x10^3(ANC) 7.74 10*3/uL 1.99-6.95 H (test code = 1267494102) IMM GRAN x10^3 (test 0.11 10*3/uL 0-0.06 H code = 4223452160) LYMPH x10^3 (test code 0.61 10*3/uL 1.09-3.23 L = 731-0) MONO x10^3 (test code 0.04 10*3/uL 0.36-1.02 L = 742-7) EOS x10^3 (test code = <0.03 0.06-0.53 L 711-2) BASO x10^3 (test code 0.05 10*3/uL 0.01-0.09 = 704-7) POLYCHROMASIA (test 2+ See_Comment [Automa ronan code = 32788-6) message] The system which generated this result transmitted reference range : 2+. The referen ce range was not u sed to interpret th is result as normal/abnormal . BANDS (test code = Increased A 2398722972) Lab Interpretation Abnormal (test code = 50641-9) [facility] HospitalPROCALCITONIN2020-11-09 11:48:00 Test Item Value Reference Range Interpretation Comments Procalcitonin (test 0.36 ng/mL <0.07 H code = 4173127651) JAMES (test code = JAMES) INTERPRETATION OF [...] biotics/default.asp Lab Interpretation Abnormal (test code = 46506-2) [facility] HospitalLACTATE [id number] 10:53:00 Test Item Value Reference Range Interpretation Comments LDH (test code = 5477422268) 351 U/L 300-600 Lab Interpretation (test code = Normal 30189-7) [facility] [id number] 10:07:00 Test Item Value Reference Range Interpretation Comments ESR (test code = See_Comment H [Automated message] 2948803166) The system [employer] generated this result transmitted ref erence range: 0 - 10 m m/HR. The reference r torito was not used to interpret this result as normal/abnor mal. Lab Interpretation (test Abnormal code = 22091-2) [facility]ATED)2020-08-21 09:45:00 Test Item Value Reference Range Interpretation Comments POCT GLU (test code = 5598709791) 287 mg/dL 70-110 H Lab Interpretation (test code = Abnormal 85118-7) [facility] HospitalGlycosylated Hemoglobin (A1C)2020-08-21 09:29:00 Test Item Value Reference Range Interpretation Comments HGB A1C (test code = 4548-4) 9.8 % 4-6 H Lab Interpretation (test code = Abnormal 42058-2) [facility]COVID[facility] (ID NOW RAPID TESTING)2020-08-21 09:13:00 Test Item Value Reference Range Interpretation Comments SARS-CoV-2 Rapid ID NOW Not Detected Not Detected (test code = 55779-2) JAMES (test code = JAMES) ID NOW COVID-19 Assay is an isothermal nucleic acid amplification test intended for the qualitative detection of nucleic acid from SARS-CoV-2 viral RNA in nasopharyngeal (DENTAL PRACTITIONER) specimens. It is used under Emergency Use [...] indicated. Lab Interpretation Normal (test code = 25415-6) [facility] HospitalProthrombin Time / [id number] 08:59:00 Test Item Value Reference Range Interpretation Comments PROTIME PATIENT (test See_Comment H [Auto mated message] code = 5964-2) The system [employer] generated this result transmitted ref erence range: 10.1 - 1 2.6 Seconds. The reference range was not used to int erpret this result as normal/abnormal . INR (test code = 6301-6) Nor mal INR <1.1; Warfarin Therap eutic range 2.0 to 3. 0 or 2.5 to 3.5, dep ending upon the indica tions. Lab Interpretation (test Abnormal code = 49403-0) [facility] HospitalaPTT2020-11-09 08:59:00 Test Item Value Reference Range Interpretation Comments APTT Patient (test code = See_Comment [ Automated message] 3173-2) The system [employer] generated this result transmitted ref erence range: 26 - 36 Seconds. The re ference range was not u sed to interpret this result as normal/abnor mal. Lab Interpretation (test Normal code = 08226-4) [facility] (NA, K, CL, CO2, GLUCOSE, BUN, CREATININE, CA)2020-08-21 08:52:00 Test Item Value Reference Range Interpretation Comments NA (test code = 136 mmol/L 135-145 1224151219) K (test code = 4.3 mmol/L 3.5-5 4100485955) CL (test code = 104 mmol/L 98-108 3900990984) CO2 TOTAL (test code = 24 mmol/L 23-31 4543315316) AGAP (test code = 2-16 4314366789) BUN (test code = 8 mg/dL 7-23 6002380303) GLUCOSE (test code = 308 mg/dL 70-110 H 6082891287) CREATININE (test code = 0.72 mg/dL 0.6-1.25 7321941423) CALCIUM (test code = 7.8 mg/dL 8.6-10.6 L 6127341021) eGFR Calculation mL/min/1.73m2 (Non-) (test code = 3389823242) eGFR Calculation mL/min/1.73m2 () (test code = 0032398580) JAMES (test code = JAMES) Association of [...] tests). Lab Interpretation Abnormal (test code = 07966-2) [facility] HospitalHEPAT[facility] FUNCTION PANEL (93917) (ALB,T.PRO,BILI T,BU/BC,ALT,AST,ALK PHOS)2020-08-21 08:52:00 Test Item Value Reference Range Interpretation Comments TOTAL BILI (test code = 7685724951) 0.8 mg/dL 0.1-1.1 BILI UNCON (test code = 7168947031) 0.3 mg/dL 0.1-1.1 BILI CONJ (test code = 9441479309) 0.0 mg/dL 0-0.3 T PROTEIN (test code = 2629633329) 5.7 g/dL 6.3-8.2 L ALBUMIN (test code = 6431641319) 2.7 g/dL 3.5-5 L ALK PHOS (test code = 1500453956) 245 U/L 34-122 H ALTv (test code = 1742-6) 37 U/L 5-50 AST(SGOT) (test code = 6710253295) 43 U/L 13-40 H Lab Interpretation (test code = Abnormal 78992-2) [facility]
[2023-02-07] MEDS ORDERED: KETOROLAC 30 MG/ML INJ ONE (17:48)
--- NOTE | 2023-02-07 17:51 | ER ---
Nurse's Notes [facility] Name: Kiel Ngo Age: 72 yrs Sex: Male : 1950 Arrival Date: 02/07/2023 Time: 17:12 Bed DIS3 Private MD: Diagnosis: Pain in hip;Low back pain Presentation: 02/07 17:47 Chief complaint: EMS states: Dr. Guzman took report from EMS and discharged pt. jl7 Coronavirus screen: At this time, the client does not indicate any symptoms associated with coronavirus-19. Ebola Screen: No symptoms or risks identified at this time. Initial Sepsis Screen: Does the patient meet any 2 criteria? No. Patient's initial sepsis screen is negative. Does the patient have a suspected source of infection? No. Patient's initial sepsis screen is negative. Risk Assessment: Do you want to hurt yourself or someone else? Patient reports no desire to harm self or others. Onset of symptoms is unknown. 17:47 Method Of Arrival: EMS: [facility] jl7 17:47 Acuity: JOZEF 4 jl7 Historical: - Allergies: 17:48 Demerol; jl7 17:48 metformin; jl7 17:48 Morphine; jl7 - PMHx: 17:48 Atrial fibrillation; chronic back pain; Chronic right leg pain; neuropathy; jl7 - PSHx: 17:48 back sx; PANCREAS SX; R. Ankle SX; jl7 - Immunization history:: Adult Immunizations unknown. - Social history:: Smoking status: unknown. ED Course: 17:14 Patient arrived in ED. ms3 17:14 Scotty Guzman DO is Attending Physician. ms3 17:39 Mariel Louis RN is Primary Nurse. jl7 17:48 Triage completed. jl7 17:48 Arm band placed on right wrist. jl7 17:50 Patient has correct armband on for positive identification. jl7 17:50 No provider procedures requiring assistance completed. Patient did not have IV access jl7 during this emergency room visit. Administered Medications: 17:47 Not Given (Patient Refused): Ketorolac IM 30 mg IM once jl7 Medication: 17:50 VIS not applicable for this client. jl7 Outcome: 17:15 Discharge ordered by . ms3 17:50 Discharged to home via ambulance. jl7 17:50 Condition: stable 17:50 Discharge instructions given to patient, Instructed on discharge instructions, follow up and referral plans. medication usage, Demonstrated understanding of instructions, follow-up care, medications, Prescriptions given X 2. 17:50 Patient left the ED. jl7 Signatures: Mariel Louis RN RN jl7 Scotty Guzman, DO ms3
== END 2023-02-07 17:50 | disposition home or self-care (01) ==
LOC: ER 17:12
DX: M25.552 Pain in left hip (principal); M25.551 Pain in right hip; M54.50 Low back pain, unspecified; Z88.5 Allergy status to narcotic agent
CPT/HCPCS: 99283

== ENCOUNTER 2023-02-10 17:08 | Emergency (ER) | payer OTHER ==
--- OUTSIDE RECORDS SUMMARY | 2023-02-10 17:15 | XMS REPORT | Continuity of Care Document ---
:1950 Author Organization [facility] t Address [address] [place] [address] Care Team Providers Name Role Phone CALVIN WORLEY Primary Care Physician Unavailable [id number] Attending Clinician Unavailable KELLY WASHINGTON Attending Clinician [...] PACO LACEY Attending Clinician Unavailable Doctor Unassigned, [place] Attending Clinician Unavailable Wilder VILLAREAL, Angi K.H. Attending Clinician Jl Mccabe MD Attending Clinician Kelly Washington MD Attending Clinician [phone] Mukul Gallardo MD Attending Clinician [id number] Admitting Clinician Unavailable MUKUL GALLARDO Admitting Clinician Unavailable Angle Mathew, Anav Admitting Clinician Unavailable Hunter VILLAREAL, Vika G Admitting Clinician VIKA HARRISON Admitting Clinician Unavailable Mukul Gallardo MD Admitting Clinician Payers Payer Name Policy Type Policy Number Effective Date Expiration Date [place] MEDICARE PART A [id number] 2007 \\T\\ B 00:00:00 [employer] INDEMNITY [id number] 2016 00:00:00 MCR MCR [id number] MEDICARE PART A [id number] 2014 \\T\\ B - MEDICARE 00:00:00 INDEMNITY/TRADITIO [id number] [id number] NAL CHOICE - [employer] 00:00:00 Problems Condition Condition Condition Status Onset Resolution Last Treating Co mments Source Name Details Category Date Date Treatment Clinician Date Elevated Elevated Disease Active 2020-0 Unive rs LFTs LFTs 2-05 ity of 00:00: [place] 00 Medical Branch Abnormal Abnormal Disease Active 2020-0 Unive rs CXR CXR 2-05 ity of 00:00: Medical Branch Elevated Elevated Disease Active 2020-0 Unive rs LFTs LFTs 2-05 ity of 00:00: 00 Medical Branch Cellulitis Cellulitis Disease Active 2020-0 U nivers 2-04 ity of 00:00: [place] 00 Medical Branch Rash Rash Disease Active 2019- Univers 1-09 ity of 00:00: 00 Medical Branch Allergies, Adverse Reactions, Alerts Allergy Allergy Status Severity Reaction(s) Onset Inactive Treating Comm ents Source Name Type Date Date Clinician [place] Propensi Active Rash 2019- Univers ty to 1-10 ity of adverse 00:00: [place] reaction 00 Medical s Branch PEACH DRUG Active Rash 2019- Univers INGREDI 1-10 ity of 00:00: 00 Medical Branch Lidocain Drug Active Itching 2019-10 Univers e Allergy -09 ity of 00:00: [place] 00 Medical Branch LIDOCAIN DRUG Active ITCHING [...] Quantity Comments Source Exposure to Not sure Commerce of SARS-CoV-2 [place] Medical (event) Branch History of Chews Tobacco University of tobacco use [place] [facility] History SDOH 2020-11-17 2020-11-17 5 University o f Financial 00:00:00 00:00:00 [place] [facility] History SDOH Food 2020-11-17 2020-11-17 1 Univers ity of Worry 00:00:00 00:00:00 [place] [facility] History SDOH Food 2020-11-17 2020-11-17 1 Univers ity of Scarcity 00:00:00 00:00:00 [place] [facility] History SDOH 2020-11-17 2020-11-17 1 University o f Transport Med 00:00:00 00:00:00 [place] Medic al Branch History SDOH 2020-11-17 2020-11-17 1 University o f Transport Non-Med 00:00:00 00:00:00 [place] M edical Branch Education 2020-11-16 2020-11-16 21 Commerce of 00:00:00 00:00:00 [facility] Branch Alcohol intake 2020-11-16 2020-11-16 Ex-drinker Commerce of 00:00:00 00:00:00 (finding) [facility] Tobacco use and 2020-08-21 2020-08-21 Former user Universi ty of exposure 00:00:00 00:00:00 [facility] Tobacco Comment 2020-08-21 2020-08-21 quit 10 years Univer sity of 00:00:00 00:00:00 ago, started in [place] Med ica 2nd year of [facility] (~40 years) Alcohol Comment 2020-08-21 2020-08-21 Used to have 2-3 Uni versity of 00:00:00 00:00:00 six-packs of [place] Medica l beer daily x 20 Branch years, quit 2005 History [facility] 2020-08-21 2020-08-21 99 University o f Alcohol Frequency 00:00:00 00:00:00 [place] M edical Branch History [facility] 2020-08-21 2020-08-21 99 University o f Alcohol Std 00:00:00 00:00:00 [place] Medical Drinks Branch History [facility] 2020-08-21 2020-08-21 99 University o f Alcohol Binge 00:00:00 00:00:00 [facility] Sex Ass[birth year] At [birth year] Universit y of 00:00:00 00:00:00 [facility] Smoking Status Start Date Stop Date Source Never smoker [facility] Medications Ordered Filled Start Stop Current [...] by ity of tablet 22:47: mouth at [place] 18 bedtime. Medical Branch HYDROmorpho 2020-0 Yes [...] by ity of tablet 22:47: mouth at [place] 18 bedtime. Medical Branch HYDROmorpho 2020-0 Yes [...] by ity of tablet 16:47: mouth at [place] 18 bedtime. Medical Branch HYDROmorpho 2020-0 Yes [...] Until Discontinu ed, Routine amLODIPine 0 Yes [id number] 10mg Take 1 Univers 10 mg 3-07 tablet by ity of tablet 00:00: mouth [place] 00 daily. Medical Branch clotrimazol 2020-0 Yes [id number] Apply to Univers e 1 % 3-07 face/ears, ity of topical 00:00: armpits, [place] cream 00 pannus and Medical back/any Branch other rash twice a day fluocinonid 2020-0 Yes [id number] Apply to Univers e 0.05 % 3-07 scalp ity of solution 00:00: twice a [place] 00 day Medical Branch triamcinolo 2020-0 Yes [id number] Apply to Univers ne 3-07 back, ity of acetonide 00:00: armpits [place] 0.1 % cream 00 and other Med ical affected Branch areas twice daily, please mix with clotrimazo le hydrOXYzine 2020-0 Yes [id number] 10mg Take 1 Univers 10 mg 3-07 tablet by ity of tablet 00:00: mouth 2 00 (two) Medical times Branch daily. amLODIPine 2020-0 Yes [id number] 10mg Take 1 Univers 10 mg 3-07 tablet by ity of tablet 00:00: mouth [place] 00 daily. Medical Branch clotrimazol 2020-0 Yes [id number] Apply to Univers e 1 % 3-07 face/ears, ity of topical 00:00: armpits, [place] cream 00 pannus and Medical back/any Branch other rash twice a day fluocinonid 2020-0 Yes [id number] Apply to Univers e 0.05 % 3-07 scalp ity of solution 00:00: twice a [place] 00 day Medical Branch triamcinolo 2020-0 Yes [id number] Apply to Univers ne 3-07 back, ity of acetonide 00:00: armpits [place] 0.1 % cream 00 and other Med ical affected Branch areas twice daily, please mix with clotrimazo le hydrOXYzine 2020-0 Yes [id number] 10mg Take 1 Univers 10 mg 3-07 tablet by ity of tablet 00:00: mouth 2 [place] 00 (two) Medical times Branch daily. amLODIPine 2020-0 Yes [id number] 10mg Take 1 Univers 10 mg 3-07 tablet by ity of tablet 00:00: mouth [place] 00 daily. Medical Branch clotrimazol 2020-0 Yes [id number] Apply to Univers e 1 % 3-07 face/ears, ity of topical 00:00: armpits, [place] cream 00 pannus and Medical back/any Branch other rash twice a day fluocinonid 2020-0 Yes [id number] Apply to Univers e 0.05 % 3-07 scalp ity of solution 00:00: twice a day Medical Branch triamcinolo 0 Yes [id number] Apply to Univers ne 3-07 back, ity of acetonide 00:00: armpits [place] 0.1 % cream 00 and other Med ical affected Branch areas twice daily, please mix with clotrimazo le hydrOXYzine Yes [id number] 10mg Take 1 Univers 10 mg 3- tablet by ity of tablet 00:00: mouth 2 (two) Medical times Branch daily. amLODIPine Yes [id number] 10mg Take 1 Univers 10 mg 3-07 tablet by ity of tablet 00:00: mouth 00 daily. Medical Branch clotrimazol 0 Yes [id number] Apply to Univers e 1 % 3-07 face/ears, ity of topical 00:00: armpits, [place] cream 00 pannus and Medical back/any Branch other rash twice a day fluocinonid 2020-0 Yes [id number] Apply to Univers e 0.05 % 3-07 scalp ity of solution 00:00: twice a day Medical Branch triamcinolo 0 Yes [id number] Apply to Univers ne 3-07 back, ity of acetonide 00:00: armpits [place] 0.1 % cream 00 and other Med ical affected Branch areas twice daily, please mix with clotrimazo le hydrOXYzine Yes [id number] 10mg Take 1 Univers 10 mg 3-07 tablet by ity of tablet 00:00: mouth 2 00 (two) Medical times Branch daily. cephALEXin 2020-2020- No [id number] 500mg Take 1 Univers 500 mg 12-17- capsule by ity of capsule 00:00: 05:59 mouth [place] 00 :00 every 6 Medical (six) Branch hours for 3 days. cephALEXin 2020-2020- No [id number] 500mg Take 1 Univers 500 mg 12-17 capsule by ity of capsule 00:00: 05:59 mouth [place] 00 :00 every 6 Medical (six) Branch hours for 3 days. hydrOXYzine 2020- No [id number] 10mg Take 1 Univers 10 mg 12-17 [...] 1,000 mL 00 :00 IV Medical Infusion, [place] ONCE, 1 dose, 12/15/20 at 1900, Routine [...] NaCl 0.9% No 500mL at [facility] ers (NS) bolus 12-15-05 mL/hr, 500 [...] Until Discontinu ed, Routine amLODIPine 2020- No [id number] 10mg Take 1 Univers 10 mg 12-15-07 tablet by ity of tablet 00:00: 00:00 mouth [place] 00 :00 daily. Medical Branch HYDROmorpho 2020- No 1mg 1 mg, Univ ers ne 3 03-05 Oral, ity of (DILAUDID) 17:35: 15:18 Q6HPRN, [place] tablet 1 mg 30 :06 Starting Medi [facility] 12/14/20 Branch at 1135, Until [...] Until Discontinu ed, Routine triamcinolo 2020- No [id number] Apply to Univers ne 12-14 back, ity of acetonide 00:00: 00:00 armpits [place] 0.1 % cream 00 :00 and other Med ical affected Branch areas twice daily, please mix with clotrimazo le clotrimazol 2020- No [id number] Apply to Univers e 1 % 12-14 face/ears, ity of topical 00:00: 00:00 armpits, [place] cream 00 :00 pannus and Medical back/any Branch other rash twice a day fluocinonid 2020- No [id number] Apply to Univers e 0.05 % 12-14 scalp ity of solution 00:00: 00:00 twice a [place] 00 :00 day Medical Branch hydrOXYzine 2020- No [id number] 10mg Take 1 Univers 10 mg 12-14 [...] Q6HPRN, [place] injection 4 28 Starting Medi jos ec mg Fri12/13/20 Branch at 0407, Until Discontinu [...] 1 [place] mg 00 :00 dose, [facility] 12/12/20 at Branch 2145, Routine [...] 1 [place] mg 00 :00 dose, [facility] 12/12/20 at Branch 0215, Routine [...] dose [place] capsule 300 00 on [facility] Medica l mg 12/11/20 at Branch 2100, Until Discontinu ed, Routine fluocinonid 0 Yes Topical, Un toi e (LIDEX) 3 BID, First ity of 0.05 % 02:00: dose on [place] solution 00 Fri12/11/20 Medic al at 2000, Branch Until Discontinu ed, Routine acetaminoph 2020- No 1{tbl} 1 tablet, Univers en-codeine 12-11 03-05 Oral, ity of (TYLENOL 23:23: 13:49 Q6HPRN, [place] #3) 300-30 43 :08 Starting Medic al mg tablet 1 Fri12/11/20 Br anch tablet at 1723, Until Fri12/15/20 at 0749, Routine, Pain (scale 4-6) enoxaparin 0 Yes 40mg 40 mg, Unive rs (LOVENOX) 12-11 Subcutaneo ity of injection 23:00: us, DAILY, [place] 40 mg 00 First dose Medical on Fri [place] 12/11/20 at 1700, Until Discontinu ed, Routine clotrimazol 0 Yes Topical, Un toi e 3- BID, First ity of (LOTRIMIN) 19:15: dose [place] 1 % topical Fri12/11/20 Me dical cream at 1315, Branch Until Discontinu ed, Routine hydrocortis 0 Yes Topical Uni vers one 2.5 % 12-11 (Apply To ity o f cream 19:15: Affected [place] 00 Areas), Medical BID, First Branch dose on Fri12/11/20 at 1315, Until Discontinu ed, Routine triamcinolo Yes Topical, Un toi ne 12-11 BID, First ity of acetonide 19:00: dose [place] (TRIDERM) 00 (after Medical 0.1 % cream last Branch modificati on) on Fri12/11/20 at 1300, Until Discontinu ed, Routine ceFAZolin 2020- No 1000mg 1,000 mg, [place] [facility] (ANCEF) 12-11 03-05 IV ity of 1,000 mg in 19:00: 17:35 Piggyback, [place] NaCl 0.9% 00 :26 Q8H ABX, Medica l (NS) 50 mL First dose Bra nch MINI-BAG on Fri12/11/20 at 1300, Until Discontinu ed, 50 mL
R jose armando for Anti-Infec tive: Documented Infection< br>Documen ronan Infection Site: Skin / Soft Tissue
Duration of Therapy: 7 days Sliding [facility] Scale 12-11 us, TID ity of Insulin - 18:00: MEALS+HS, [place] Lispro 00 First dose Medical (HumaLOG) + on Fri Branch Fsbg 12/11/20 at Testing 1200, Until Discontinu ed, Routine insulin Yes 5U 5 Units, [facility] s lispro 12-11 Subcutaneo ity of (human) 18:00: us, TID [place] (HumaLOG 00 MEALS, Medical U-100) First dose Branch injection 5 on Fri Units 12/11/20 at 1200, Until Discontinu ed Polyethylen Yes 17g 17 g, [facility] rs e Glycol 12-11 Oral, ity of 3350 17:47: [id number], [place] (MIRALAX) 05 Starting Medica l powder 17 g Fri12/11/20 Br anch at 1147, Until Discontinu ed, Routine, Constipati on acetaminoph Yes 650mg 650 mg, Un toi en 12-11 Oral, ity of (TYLENOL) 16:51: Q6HPRN, [place] tablet 650 28 Starting Medic al mg 12/11/20 Branch at 1051, Until Discontinu ed, Routine, Pain (scale 1-3) FENTanyl PF 2020- No 75ug 75 mcg, Un toi (SUBLIMAZE 12-11 Slow IV ity o f (PF)) 15:00: 13:53 Push, [place] injection 00 :00 ONCE, 1 Medical 75 mcg dose, [facility] Branch 12/11/20 at 0900, Routine [...] 2020- No 3.375g 3.375 g, [place] [facility] n-tazobacta 12-11 IV ity of m (ZOSYN) 12:00: 17:48 [place]gyback, [place] injection 00 :24 Q6H, First Medi jose c 3.375 g dose on Branch [facility] 12/11/20 at 0600, Until Discontinu ed, KAHLIL
Re ason for Anti-Infec tive: Empiric Therapy for Suspected Infection< br>Empiric Therapy Site: Skin / Soft tissue
Duration of therapy: 72 hours sennosides- Yes [id number] 1{tbl} Take 1 Univers docusate 2-09 tablet by ity of sodium 00:00: mouth 2 [place] 8.6-50 mg 00 (two) Medical per tablet times Branch daily. hydrocortis Yes [id number] Apply to [facility] one 2.5 % 2-09 affected ity of cream 00:00: area(s) 2 [place] 00 (two) Medical times Branch daily. blood sugar 2020-0 Yes [id number] Use to [facility] diagnostic 11-21 check ity of (FREESTYLE 00:00: blood [place] LITE 00 glucose Medical STRIPS) 4-5 times Branch strip daily. Polyethylen 2020-0 Yes [id number] 17g Take 1 Univers e Glycol 2-09 Packet by ity of 3350 17 00:00: mouth [place] gram powder 00 every 24 Medi jose c (twenty-fo Branch ur) hours as needed for Constipati on. sennosides- 2020- Yes [id number] 1{tbl} Take 1 Univers docusate 2-09 tablet by ity of sodium 00:00: mouth 2 [place] 8.6-50 mg 00 (two) Medical per tablet times Branch daily. hydrocortis 2020-0 Yes [id number] Apply to Univers one 2.5 % 2-09 affected ity of cream 00:00: area(s) 2 [place] 00 (two) Medical times Branch daily. blood sugar 2020-0 Yes [id number] Use to [place] [facility] diagnostic 11-21 check ity of (FREESTYLE 00:00: blood [place] LITE 00 glucose Medical STRIPS) 4-5 times Branch strip daily. Polyethylen 2020-0 Yes [id number] 17g Take 1 Univers e Glycol 2-09 Packet by ity of 3350 17 00:00: mouth [place] gram powder 00 every 24 Medi jose c (twenty-fo Branch ur) hours as needed for Constipati on. sennosides- 2020-0 Yes [id number] 1{tbl} Take 1 Univers docusate 2-09 tablet by ity of sodium 00:00: mouth 2 [place] 8.6-50 mg 00 (two) Medical per tablet times Branch daily. hydrocortis 2020-0 Yes [id number] Apply to Univers one 2.5 % 2-09 affected ity of cream 00:00: area(s) 2 [place] 00 (two) Medical times Branch daily. blood sugar 2020-0 Yes [id number] Use to [facility] diagnostic 11-21 check ity of (FREESTYLE 00:00: blood [place] LITE 00 glucose Medical STRIPS) 4-5 times Branch strip daily. Polyethylen 2020-0 Yes [id number] 17g Take 1 Univers e Glycol 2-09 Packet by ity of 3350 17 00:00: mouth [place] gram powder 00 every 24 Medi jose c (twenty-fo Branch ur) hours as needed for Constipati on. sennosides- Yes [id number] 1{tbl} Take 1 Univers docusate 11-21 tablet by ity of sodium 00:00: mouth 2 [place] 8.6-50 mg 00 (two) Medical per tablet times Branch daily. hydrocortis Yes [id number] Apply to [place] [facility] one 2.5 % 11-21 affected ity of cream 00:00: area(s) 2 [place] 00 (two) Medical times Branch daily. blood sugar Yes [id number] Use to [place] [facility] diagnostic 11-21 check ity of (FREESTYLE 00:00: blood [place] LITE 00 glucose Medical STRIPS) 4-5 times Branch strip daily. Polyethylen Yes [id number] 17g Take 1 Univers e Glycol - Packet by ity of 3350 17 00:00: mouth [place] gram powder 00 every 24 Medi jose c (twenty-fo Branch ur) hours as needed for Constipati on. Insulin 2020- No [id number] 15U inject 15 Univers Glargine 11-21-12 Units ity of (LANTUS 00:00: 05:59 under the [employer] SOLOSTAR 00 :00 skin every Medic al U-100 morning Branch INSULIN) for 30 100 unit/mL days. (3 mL) injection venlafaxine 2020- No [id number] 150mg Take 1 Univers XR 150 mg 11-21 capsule by ity of 24 hr 00:00: 05:59 mouth 3 [place] capsule 00 :00 (three) Medical times Branch daily for 30 days. Insulin 2020- No [id number] 15U inject 15 Univers Glargine 11-21-12 Units ity of (LANTUS 00:00: 05:59 under the [employer] SOLOSTAR 00 :00 skin every Medic al U-100 morning Branch INSULIN) for 30 100 unit/mL days. (3 mL) injection venlafaxine 2020- No [id number] 150mg Take 1 Univers XR 150 mg 11-21 capsule by ity of 24 hr 00:00: 05:59 mouth 3 [place] capsule 00 :00 (three) Medical times Branch daily for 30 days. triamcinolo 2020- No [id number] Apply to [place] [facility] ne 11-21 area(s) 2 ity of acetonide 00:00: 00:00 (two) [place] 0.1 % cream 00 :00 times Medical daily. Branch cephALEXin 2020- No [id number] 1000mg Take 2 Univers 500 mg 11-21 capsules ity of capsule 00:00: 00:00 by mouth 3 [place] 00 :00 (three) Medical times Branch daily. doxycycline 2020- No [id number] 100mg Take 1 Univers hyclate 100 11-21 capsule by i ty of mg capsule 00:00: 00:00 mouth [place] 00 :00 every 12 Medical (twelve) Branch hours. lactobacill 2020- No [id number] 1{tbl} Take 1 Univers us 11-21 tablet by ity of acidophilus 00:00: 00:00 mouth 2 [place] 25 million 00 :00 (two) Medical cell -100 times Branch mg captab daily. bisacodyL 2020- No [id number] 10mg Insert 1 Univers 10 mg 11-21 Suppositor ity of suppository 00:00: 00:00 y into [place] 00 :00 rectum at Medical bedtime as Branch needed for Constipati on. ALPRAZolam 2020- No [id number] .25mg Take 1 Univers (XANAX) 11-21 tablet by ity of 0.25 mg 00:00: 00:00 mouth 2 [place] tablet 00 :00 (two) Medical times Branch daily. hydrOXYzine 2020- No [id number] 20mg Take 2 Univers 10 mg 11-21 [...] Units ity of (LANTUS 01:13: under the [place] SOLOSTAR) 36 skin. Medical 100 unit/mL Branch [...] Units ity of (LANTUS 01:13: under the [place] SOLOSTAR) 36 skin. Medical 100 unit/mL Branch [...] Units ity of (LANTUS 01:13: under the [place] SOLOSTAR) 36 skin. Medical 100 unit/mL Branch [...] Units ity of (LANTUS 01:13: under the [place] SOLOSTAR) 36 skin. Medical 100 unit/mL Branch (3 mL) InPn INSULIN 2019-10 Yes 5U inject 5 Univer s ASPART 1-12 Units ity of (NOVOLOG 01:13: under the [facility] s FLEXPEN SC) 36 skin. Medical [...] Units ity of (LANTUS 01:13: under the [place] SOLOSTAR) 36 skin. Medical 100 unit/mL Branch [...] Units ity of (LANTUS 01:13: under the [place] SOLOSTAR) 36 skin. Medical 100 unit/mL Branch [...] Units ity of (LANTUS 01:13: under the [place] SOLOSTAR) 36 skin. Medical 100 unit/mL Branch (3 mL) InPn INSULIN 2019-10 Yes 5U inject 5 Univer s ASPART 1-12 Units ity of (NOVOLOG 01:13: under the [facility] FLEXPEN SC) 36 skin. Medical Branch ALPRAZolam 2019-10 Yes .25mg Take 0.25 U nivers (XANAX) 1-12 mg by ity of 0.25 mg 01:13: mouth 2 [place] tablet 36 (two) Medical times Branch daily. HYDROXYZINE 2019-10 2020- No 25mg Take 25 mg Univers PAMOATE 1-11 11-11 by mouth ity of ORAL 20:04: 00:00 daily. [place] 34 :00 Medical Branch hydrocortis 2019-10 Yes [id number] Apply to Univers one 2.5 % 1-11 affected ity of cream 00:00: area(s) 2 [place] 00 (two) Medical times Branch daily. hydrOXYzine 2019-10 Yes [id number] 20mg Take 2 Univers 10 mg 1-11 tablets by ity of tablet 00:00: mouth [place] 00 every 8 Medical (eight) Branch hours as needed for Itching or Anxiety. Polyethylen 2019-10 Yes [id number] 17g Take 1 Univers e Glycol 1-11 Packet by ity of 3350 17 00:00: mouth [place] gram powder 00 every 24 Medi jose c (twenty-fo Branch ur) hours as needed for Constipati on. hydrocortis 2019- Yes [id number] Apply to Univers one 2.5 % 1-11 affected ity of cream 00:00: area(s) 2 [place] 00 (two) Medical times Branch daily. hydrOXYzine 2019- Yes [id number] 20mg Take 2 Univers 10 mg 1-11 tablets by ity of tablet 00:00: mouth [place] 00 every 8 Medical (eight) Branch hours as needed for Itching or Anxiety. Polyethylen 2020- Yes [id number] 17g Take 1 Univers e Glycol 1-11 Packet by ity of 3350 17 00:00: mouth [place] gram powder 00 every 24 Medi jose c (twenty-fo Branch ur) hours as needed for Constipati on. hydrocortis 2019- Yes [id number] Apply to Univers one 2.5 % 1-11 affected ity of cream 00:00: area(s) 2 [place] 00 (two) Medical times Branch daily. hydrOXYzine 2019- Yes [id number] 20mg Take 2 Univers 10 mg 1-11 tablets by ity of tablet 00:00: mouth [place] 00 every 8 Medical (eight) Branch hours as needed for Itching or Anxiety. Polyethylen 2019- Yes [id number] 17g Take 1 Univers e Glycol 1-11 Packet by ity of 3350 17 00:00: mouth [place] gram powder 00 every 24 Medi jose c (twenty-fo Branch ur) hours as needed for Constipati on. hydrocortis 2019- Yes [id number] Apply to Univers one 2.5 % 1-11 affected ity of cream 00:00: area(s) 2 [place] 00 (two) Medical times Branch daily. hydrOXYzine 2019- Yes [id number] 20mg Take 2 Univers 10 mg 1-11 tablets by ity of tablet 00:00: mouth [place] 00 every 8 Medical (eight) Branch hours as needed for Itching or Anxiety. Polyethylen 2019- Yes [id number] 17g Take 1 Univers e Glycol 1-11 Packet by ity of 3350 17 00:00: mouth [place] gram powder 00 every 24 Medi jose c (twenty-fo Branch ur) hours as needed for Constipati on. hydrocortis 2019- Yes [id number] Apply to Univers one 2.5 % 1-11 affected ity of cream 00:00: area(s) 2 [place] 00 (two) Medical times Branch daily. hydrOXYzine 2019- Yes [id number] 20mg Take 2 Univers 10 mg 1-11 tablets by ity of tablet 00:00: mouth [place] 00 every 8 Medical (eight) Branch hours as needed for Itching or Anxiety. Polyethylen 2020- Yes [id number] 17g Take 1 Univers e Glycol 1-11 Packet by ity of 3350 17 00:00: mouth [place] gram powder 00 every 24 Medi jose c (twenty-fo Branch ur) hours as needed for Constipati on. hydrocortis 2019- Yes [id number] Apply to Univers one 2.5 % 1-11 affected ity of cream 00:00: area(s) 2 [place] 00 (two) Medical times Branch daily. hydrOXYzine 2019- Yes [id number] 20mg Take 2 Univers 10 mg 1-11 tablets by ity of tablet 00:00: mouth [place] 00 every 8 Medical (eight) Branch hours as needed for Itching or Anxiety. Polyethylen 2019- Yes [id number] 17g Take 1 Univers e Glycol 1-11 Packet by ity of 3350 17 00:00: mouth [place] gram powder 00 every 24 Medi jose c (twenty-fo Branch ur) hours as needed for Constipati on. hydrocortis 2019-10 Yes [id number] Apply to Univers one 2.5 % 1-11 affected ity of cream 00:00: area(s) 2 [place] 00 (two) Medical times Branch daily. hydrOXYzine 2019-10 Yes [id number] 20mg Take 2 Univers 10 mg 1-11 tablets by ity of tablet 00:00: mouth [place] 00 every 8 Medical (eight) Branch hours as needed for Itching or Anxiety. Polyethylen 2019- Yes [id number] 17g Take 1 Univers e Glycol 1-11 Packet by ity of 3350 17 00:00: mouth [place] gram powder 00 every 24 Medi jose c (twenty-fo Branch ur) hours as needed for Constipati on. triamcinolo 2019- 2020- No [id number] Apply to [facility] 10-23 area(s) 2 ity of acetonide 00:00: 05:59 (two) [place] 0.1 % cream 00 :00 times Medical daily for Branch 14 days. triamcinolo 2020- 2020- No [id number] Apply to [facility] 10-23 area(s) 2 ity of acetonide 00:00: 05:59 (two) [place] 0.1 % cream 00 :00 times Medical daily for Branch 14 days. triamcinolo 2020- 2020- No [id number] Apply to [facility] 1-11 11-26 area(s) 2 ity of acetonide 00:00: 05:59 (two) [place] 0.1 % cream 00 :00 times Medical daily for Branch 14 days. KCL 2019- 2020- No 40meq 40 mEq, Univers (KLOR-CON 1-10 11-10 Oral, ONCE ity of M20) tablet 16:15: 16:23 NOW, 1 [place] 40 mEq 00 :00 dose, [facility] 08/22/20 Branch at 1015, Routine HYDROmorpho 2019-10 Yes 1mg 1 mg, Unive rs ne 1-10 Oral, ity of (DILAUDID) 15:07: Q6HPRN, [place] tablet [address] [facility] 08/22/20 at 0907, Until Discontinu ed, Routine, Pain (scale 7-10) hydrocortis 2019-10 Yes Topical Uni vers one 2.5 % -10 (Apply To ity o f cream 02:00: Affected [place] 00 Areas), Medical BID, First Branch dose on [facility] 08/21/20 at 2000, Until Discontinu ed, Routine triamcinolo 2019-10 Yes Topical, Un toi ne 1-10 BID, First ity of acetonide 02:00: dose on [place] (TRIDERM) 00 Fri Medical 0.1 % cream 08/21/20 at Br anch 2000, Until Discontinu ed, Routine hydrOXYzine 2019-10 Yes 20mg 20 mg, Univ ers (ATARAX) 09 Oral, ity of tablet 20 17:39: Q8HPRN, [place] mg 12 Starting Medical [facility] 08/21/20 at 1139, Until Discontinu ed, Routine, Itching, Anxiety sennosides- 2019-10 Yes 1{tbl} 1 tablet, Univers docusate 09 Oral, ity of sodium 15:00: DAILY, [place] (SENOKOT-S) 00 First dose Me dical 8.6-50 mg on [facility] Branch per tablet 08/21/20 at 1 tablet 0900, Until Discontinu ed, Routine hydrocortis 2019-10 2020- No Topical Un toi one 1 % 10-21 11- (Apply To ity of cream 15:00: 22:54 Affected [place] 00 :48 Areas), Medical DAILY, Branch First dose on [facility] 08/21/20 at 0900, Until Discontinu ed, Routine venlafaxine 2019-10 Yes 150mg 150 mg, Un toi XR (EFFEXOR 10-21 Oral, TID, it y of XR) 24 hr 14:00: [place] capsule 150 00 on [facility] Medica l mg 08/21/20 at Branch 0800, Until Discontinu ed, Routine heparin 2019-10 Yes 5000U 5,000 Univers (porcine) 10-21 Units, ity of injection 14:00: [place]cutaneo [place] 5,000 Units 00 us, Q12H, Med ical First dose Branch on [facility] 08/21/20 at 0800, Until Discontinu ed, Routine diphenhydrA 2019-10 2020- No 25mg 25 mg, Uni vers MINE 10-21 Oral, ity of (BENADRYL) 12:56: 17:39 Q8HPRN, [place] as tablet 25 59 :43 Starting Medica l mg [facility] 08/21/20 at 0656, Until [facility] 08/21/20 at 1139, Routine, Itching, Mild Rash, Congestion /Allergies , alternate with hydroxyzin e hydrOXYzine 2019-10 2020- No 10mg 10 mg, Uni vers (ATARAX) 10-21 Oral, ity of tablet 10 10:20: 12:57 Q6HPRN, [place] mg 22 :12 Starting Medical [facility] 08/21/20 at 0420, Until [facility] 08/21/20 at 0657, Routine, Itching, Anxiety Sliding 2019-10 Yes Subcutaneo Univ ers Scale 10-21 us, Q4H, ity of Insulin - 10:00: First dose [place] Aspart 00 (after Medical (NOVOLOG) + last Branch Fsbg modificati Testing on) on [facility] 08/21/20 at 0400, Until Discontinu ed, Routine lidocaine 5 2019-10 2020- No Topical, U nivers % ointment 10-21 ONCE, 1 ity o f 09:30: 09:14 dose, [facility] 00 :00 08/21/20 at [facility] 0330, Branch Routine Polyethylen 2019-10 Yes 17g 17 g, Unive rs e Glycol 10-21 Oral, ity of 3350 08:29: D69YNZY, [place] (MIRALAX) 09 Starting Medica l powder 17 g [facility] 08/21/20 at 0229, Until Discontinu ed, Routine, Constipati on lanolin 2019-10 Yes Topical, [facility] s alcohol-mo- 10-21 PRN, ity [...] Starting Medic al mg [facility] 08/21/20 at 0145, Until Discontinu ed, Routine, Pain (scale 1-3) sotalol 2019-10 2020- No Take by [facility] s (BETAPACE) 10-21 mouth ity of 240 mg 07:43: 00:00 every 12 [place] tablet 30 :00 (twelve) Medical hours. Branch blood sugar Yes [facility] to [facility] ers diagnostic 4-25 check ity of (FREESTYLE 00:00: blood [place] LITE 00 glucose Medical STRIPS) 4-5 times Branch strip daily. blood sugar Yes Use to [facility] diagnostic 4-25 check ity of (FREESTYLE 00:00: blood [place] LITE 00 glucose Medical STRIPS) 4-5 times Branch strip daily. blood sugar Yes Use to [facility] ers diagnostic 4-25 check ity of (FREESTYLE 00:00: blood [place] LITE 00 glucose Medical STRIPS) 4-5 times Branch strip daily. blood sugar Yes Use to [facility] ers diagnostic 4-25 check ity of (FREESTYLE 00:00: blood [place] LITE 00 glucose Medical STRIPS) 4-5 times Branch strip daily. blood sugar Yes Use to [facility] ers diagnostic 4-25 check ity of (FREESTYLE 00:00: blood [place] LITE 00 glucose Medical STRIPS) 4-5 times Branch strip daily. blood sugar Yes Use to [facility] ers diagnostic 4-25 check ity of (FREESTYLE 00:00: blood [place] LITE 00 glucose Medical STRIPS) 4-5 times Branch strip daily. blood sugar Yes Use to [facility] diagnostic -25 check ity of (FREESTYLE 00:00: blood [place] LITE 00 glucose Medical STRIPS) 4-5 times Branch strip daily. Vital Signs Vital Name Observation Time Observation Value Comments Source Systolic blood 2021-08-22 13:00:00 148 mm[Hg] Univer sity of [facility] Diastolic blood 2021-08-22 13:00:00 84 mm[Hg] [facility] Heart rate 2021-08-22 13:00:00 103 /min [facility] Respiratory rate 2021-08-22 13:00:00 18 /min [facility] Oxygen saturation in 2021-08-22 13:00:00 95 /min [facility] Arterial blood by [facility] Pulse oximetry Branch Body temperature 2021-08-22 12:22:00 36.72 [facility] Systolic blood 2020-12-17 18:35:00 139 mm[Hg] Univer sity of [facility] Diastolic blood 2020-12-17 18:35:00 87 mm[Hg] [facility] Heart rate 2020-12-17 18:35:00 110 /min [facility] Body temperature 2020-12-17 18:35:00 37.72 [place] Univ ersity of [place] [facility] Respiratory rate 2020-12-17 18:35:00 18 /min Univ ersity of [place] [facility] Oxygen saturation in 2020-12-17 18:35:00 93 /min University of Arterial blood by [facility] Pulse oximetry Branch Body height 2020-12-12 08:21:00 180.3 cm Universi ty [facility] [place] [facility] Body weight 2020-12-12 08:21:00 103.42 kg Universi ty [facility] [place] [facility] BMI 2020-12-12 08:21:00 31.80 kg/m2 [facility]i [facility] [place] [facility] Systolic blood 2020-12-17 18:35:00 139 mm[Hg] Univer sity of pressure [place] [facility] Diastolic blood 2020-12-17 18:35:00 87 mm[Hg] Unive rsity of pressure [place] [facility] Heart rate 2020-12-17 18:35:00 110 /min [facility]i [facility] [place] [facility] Body temperature 2020-12-17 18:35:00 37.72 [place] Univ ersity [facility] [place] [facility] Respiratory rate 2020-12-17 18:35:00 18 /min Univ ersity [facility] [place] [facility] Oxygen saturation in 2020-12-17 18:35:00 93 /min University of Arterial blood by [facility] Pulse oximetry Branch Body height 2020-12-12 08:21:00 180.3 cm [facility]i [facility] [place] [facility] Body weight 2020-12-12 08:21:00 103.42 kg [facility]i [facility] [place] [facility] BMI 2020-12-12 08:21:00 31.80 kg/m2 [facility] [place] [facility] Systolic blood 2020-08-23 19:27:00 140 mm[Hg] Univer sity of pressure [place] [facility] Diastolic blood 2020-08-23 19:27:00 79 mm[Hg] Unive rsity of pressure [place] [facility] Heart rate 2020-08-23 19:27:00 99 /min [facility]i ty [facility] [place] [facility] Body temperature 2020-08-23 19:27:00 36 [place] Univ ersity [facility] [place] [facility] Respiratory rate 2020-08-23 19:27:00 18 /min Univ ersity [facility] [place] [facility] Oxygen saturation in 2020-08-23 19:27:00 93 /min University of Arterial blood by [facility] Pulse oximetry Branch Body weight 2020-08-21 07:20:00 104.962 kg Universi [facility] BMI 2020-08-21 07:20:00 32.27 kg/m2 [facility] Systolic blood 2020-08-23 19:27:00 140 mm[Hg] Univer sity of pressure [facility] Diastolic blood 2020-08-23 19:27:00 79 mm[facility]Hg] [facility] 2020-08-23 19:27:00 99 /min [facility] Body temperature 2020-08-23 19:27:00 36 [place] [facility] Respiratory rate 2020-08-23 19:27:00 18 /min Univ [facility] Oxygen saturation in 2020-08-23 19:27:00 93 /min [facility] Arterial blood by [facility] Pulse oximetry Branch Body weight 2020-08-21 07:20:00 104.962 kg [facility] BMI 2020-08-21 07:20:00 32.27 kg/m2 [facility] Procedures Procedure Date / Time Performing Clinician Source Performed POCT GLUCOSE (AUTOMATED) 2020-12-17 15:42:00 Vika Harrison G Uni [facility] BASIC METABOLIC PANEL 2020-12-17 10:45:00 Paul Bean [facility] (NA, K, CL, CO2, GLUCOSE, [facility] Medica l Branch BUN, CREATININE, CA) CBC WITH DIFF 2020-12-17 10:45:00 Paul Bean [facility] POCT GLUCOSE (AUTOMATED) 2020-12-17 02:36:00 [facility] TIBIA FIBULA 2 VW LEFT 2020-12-16 23:38:00 Paul Bean [facility] POCT GLUCOSE (AUTOMATED) 2020-12-16 23:20:00 [facility] POCT GLUCOSE (AUTOMATED) 2020-12-16 20:10:00 Vika Harrison Uni [facility] POCT GLUCOSE (AUTOMATED) 2020-12-16 14:43:00 Harrison, Premal [facility] BASIC METABOLIC PANEL 2020-12-16 13:51:00 Paul Bean [facility] (NA, K, CL, CO2, GLUCOSE, [place] [facility] BUN, CREATININE, CA) CBC WITH DIFF 2020-12-16 13:51:00 Paul Bean [facility] POCT GLUCOSE (AUTOMATED) 2020-12-16 04:00:00 Harrison, Premal [facility] POCT GLUCOSE (AUTOMATED) 2020-12-16 00:14:00 Favio [facility]al [facility] CHEST PULMONARY 2020-12-15 22:29:38 Paul Bean [facility] ANGIOGRAM [facility] POCT GLUCOSE (AUTOMATED) 2020-12-15 19:26:00 Favio Harrisonal G [facility] POCT GLUCOSE (AUTOMATED) 2020-12-15 15:13:00 Vika Harrison [facility] HB ECG ROUTINE & RHYTHM 2020-12-15 14:25:27 Cailin Romo [facility] MAGNESIUM 2020-12-15 12:01:00 Paul Bean [facility] BASIC METABOLIC PANEL 2020-12-15 12:01:00 Paul Bean [facility] (NA, K, CL, CO2, GLUCOSE, [place] [facility] BUN, CREATININE, CA) CBC WITH DIFF 2020-12-15 12:01:00 Paul Bean [facility] POCT GLUCOSE (AUTOMATED) 2020-12-15 03:57:00 Harrison, Favioal G Uni versity of [facility] POCT GLUCOSE (AUTOMATED) 2020-12-14 23:31:00 Harrison, Premal G Uni versity [facility] POCT GLUCOSE (AUTOMATED) 2020-12-14 19:08:00 Harrison, Premal G Uni versity of [facility] POCT GLUCOSE (AUTOMATED) 2020-12-14 15:11:00 Harrison, Premal G Uni versity of [facility] POCT GLUCOSE (AUTOMATED) 2020-12-14 02:36:00 Harrison, Premal G Uni versity of [facility] POCT GLUCOSE (AUTOMATED) 2020-12-13 23:32:00 Harrison, Premal G Uni versity of [facility] POCT GLUCOSE (AUTOMATED) 2020-12-13 18:08:00 Harrison, Premal G Uni versity of [facility] BASIC METABOLIC PANEL 2020-12-13 15:39:00 Paul Bean [facility] (NA, K, CL, CO2, GLUCOSE, [facility] BUN, CREATININE, CA) CBC WITH DIFF 2020-12-13 15:39:00 Paul Bean [facility] POCT GLUCOSE (AUTOMATED) 2020-12-13 14:06:00 Harrison, Premal G Uni versity of [facility] POCT GLUCOSE (AUTOMATED) 2020-12-13 03:07:00 Harrison, Premal G Uni versity of [facility] POCT GLUCOSE (AUTOMATED) 2020-12-12 23:52:00 Harrison, Premal G Uni versity of [facility] POCT GLUCOSE (AUTOMATED) 2020-12-12 20:28:00 Harrison, Premal G Uni versity of [facility] POCT GLUCOSE (AUTOMATED) 2020-12-12 19:14:00 Harrison, Premal G Uni versity of [facility] POCT GLUCOSE (AUTOMATED) 2020-12-12 14:33:00 Harrison, Premal G Uni versity of [facility] Branch MAGNESIUM 2020-12-12 08:58:00 Paul Bean [facility] BASIC METABOLIC PANEL 2020-12-12 08:58:00 Paul Bean [facility] (NA, K, CL, CO2, GLUCOSE, [facility] BUN, CREATININE, CA) CBC WITH DIFF 2020-12-12 08:58:00 Paul Bean [facility] US ABDOMEN LIMITED 2020-12-12 06:32:26 Paul Bean [facility] POCT GLUCOSE (AUTOMATED) 2020-12-12 03:40:00 Hunter Vika Fernando [facility] POCT GLUCOSE (AUTOMATED) 2020-12-12 00:06:00 Vika Harrison [facility] XR HIPS 3 VW LEFT 2020-12-11 20:20:00 [facility] & RHYTHM 2020-12-11 20:04:06 Demetrius [facility] VITAMIN B6, PLASMA 2020-12-11 19:17:00 [facility] PO[facility] GLUCOSE (AUTOMATED) 2020-12-11 19:06:00 Vika Harrison [facility] CREATINE KINASE 2020-12-11 18:22:00 [facility] B12, LEVEL 2020-12-11 18:22:00 [facility] FOLATE 2020-12-11 18:22[facility]00 [facility] 2020-12-11 18:22:00 Demetrius Cailin [facility] PROCALCITONIN 2020-12-11 18:22:00 Canvas [facility] VITAMIN B1 (THIAMINE), 2020-12-11 18:22:[address] [facility] WHOLE BLOOD [facility] CT HEAD WO CONTRAST 2020-12-11 14:07:35 Sweetie Stout [facility] URINALYSIS 2020-12-11 13:44:00 Singer [facility] URINE CULTURE 2020-12-11 13:44:00 Singer [facility] COVID-19 (ID NOW RAPID 2020-12-11 12:31:00 Paco Lacey [facility] TESTING) Medical Branch LAB ONLY COVID 2020-12-11 12:31:00 Singer Paco [facility] INTERPRETATION [facility] XR CHEST 1 VW 2020-12-11 12:07:24 Singer [facility] BLOOD CULTURE SCREEN 2020-12-11 12:02:00 Singer Paco [facility] MAGNESIUM 2020-12-11 12:02:00 [facility] FERRITIN SERUM 2020-12-11 12:02:00 [facility] COMP. METABOLIC PANEL 2020-12-11 12:02:00 Singer [facility] ([id number]) [facility] CBC WITH DIFF 2020-12-11 12:02:00 [facility] LACTIC ACID WHOLE BLOOD 2020-12-11 12:02:00 [facility] BLOOD CULTURE SCREEN 2020-12-11 11:42:00 Singer [facility] EMERGENCY SERVICES 2020-12-11 06:01:00 Doctor Unaowen, [facility] AGREEMENTS AND [place] [facility] [place] AUTHORIZATIONS HOSPITAL ADMISSION 2020-12-11 06:01:00 Doctor Tabitha, [facility] Name Medical [place] HOME HEALTH - OTHER 2020-11-11 06:01:00 Doctor Tabitha, [facility] [place] [facility] [place] [facility] - OTHER 2020-10-30 06:01:00 Doctor Tabitha, [facility] Name Medical [place] EXTERNAL PROVIDER RECORDS 2020-09-01 06:01:00 Doctor Tabitha, [facility] Name [facility] POCT GLUCOSE (AUTOMATED) 2020-08-23 18:09:00 Kelly [place] [facility] POCT GLUCOSE (AUTOMATED) 2020-08-23 14:14:00 Kelly [place] [facility] MAGNESIUM 2020-08-23 11:18:00 Ramya [facility] BASIC METABOLIC PANEL 2020-08-23 11:18:00 Ramya [facility] (NA, K, CL, CO2, GLUCOSE, Medica l Branch BUN, CREATININE, CA) CBC WITH DIFF 2020-08-23 11:18:00 Ramya [facility] POCT GLUCOSE (AUTOMATED) 2020-08-23 10:21:00 StefaniaKelly versity [facility] POCT GLUCOSE (AUTOMATED) 2020-08-23 05:55:[address] [facility] POCT GLUCOSE (AUTOMATED) 2020-08-23 03:00:00 WashingtonKelly versity [facility] POCT GLUCOSE (AUTOMATED) 2020-08-22 23:38:00 [place], Kelly Elias versity of [facility] POCT GLUCOSE (AUTOMATED) 2020-08-22 19:04:00 Stefania [facility] ([facility]OM[facility]) 2020-08-22 13:49:00 Stefania Kelly Elias [facility] MAGNESIUM 2020-08-22 10:10:00 [place] [facility] HEPATIC FUNCTION PANEL 2020-08-22 10:10:00 Agulia [facility] ([id number]) (ALB,T.PRO,BILI Medical Branch T,BU/BC,ALT,AST,ALK PHOS) BASIC METABOLIC PANEL 2020-08-22 10:10:00 [place] [facility] (NA, K, CL, CO2, GLUCOSE, Medica l Branch BUN, CREATININE, CA) LIPID PANEL ([id number])(TOTAL 2020-08-22 10:10:00 [place] [facility] CHOLESTEROL, Medical [place] TRIGLYCERIDES, HDL) CBC WITH DIFF 2020-08-22 10:10:00 [place] [facility] POCT GLUCOSE (AUTOMATED) 2020-08-22 10:10:00 Stefania Kelly Elias [facility] POCT GLUCOSE (AUTOMATED) 2020-08-22 07:13:00 Stefania Kelly Elias [facility] POCT GLUCOSE (AUTOMATED) 2020-08-22 02:24:00 Stefania Kelly Elias [facility] POCT GLUCOSE (AUTOMATED) 2020-08-21 23:40:00 Stefania Kelly Elias [facility] POCT GLUCOSE (AUTOMATED) 2020-08-21 18:10:[address] [facility] POCT GLUCOSE (AUTOMATED) 2020-08-21 13:39:[address] [facility] ETHANOL 2020-08-21 12:35:00 Richie [facility] ACTIVATED PARTIAL 2020-08-21 12:35:00 Stefania [facility] GALV ONLY - SYPHILIS 2020-08-21 12:35:00 Stefania Kelly [facility] IGG/IGM [facility] LACTATE DEHYDROGENASE 2020-08-21 10:09:00 [place], [facility] GALV/CLC ONLY - URINE 2020-08-21 10:09:00 [facility] (IMMUNOASSAY[facility] - 4 ER Medica l Branch PANEL URINALYSIS 2020-08-21 10:09:00 Ramya, [facility] URINE CULTURE 2020-08-21 10:09:00 [place], [facility] PROCALCITONIN 2020-08-21 10:09:00 Ramya, [facility] POCT GLUCOSE (AUTOMATED) 2020-08-21 09:41:[address] [facility] PROTHROMBIN TIME / INR 2020-08-21 08:32:00 [place], [facility] ACTIVATED PARTIAL 2020-08-21 08:32:00 Ramya, [facility] C-REACTIVE PROTEIN 2020-08-21 08:31:00 [place], [facility] HEPATIC FUNCTION PANEL 2020-08-21 08:31:00 [place], [facility] ([id number]) (ALB,T.PRO,BILI Medical Branch T,BU/BC,ALT,AST,ALK PHOS) BASIC METABOLIC PANEL 2020-08-21 08:31:00 [place], [facility] (NA, K, CL, CO2, GLUCOSE, Medica l Branch BUN, CREATININE, CA) SEDIMENTATION RATE 2020-08-21 08:31:00 Ramya, [facility] CBC WITH DIFF 2020-08-21 08:31:00 Ramya, [facility] o f [facility] GLYCOSYLATED HEMOGLOBIN 2020-08-21 08:31:00 [place], [facility] (A1C) [facility] HIV 1/2 AG-AB WITH REFLEX 2020-08-21 08:31:[address] [place] [address] [facility] COVID-[facility] (ID NOW RAPID 2020-08-21 08:20:00 Ramya, [facility] TESTING) Medical Branch LAB ONLY COVID 2020-08-21 08:20:00 [place], [facility] INTERPRETATION [facility] Encounters Start End Encounter Admission Attending Care Care Encounter Source Date/Time Date/Time Type Type Clinicians Facility Department ID 2022-11-13 Outpatient 3 [id number] ENCPL REF [id number] [facility] 11:39:58 0201 [facility] [place] 2020-08-21 Inpatient U STEFANIA [facility] KVNG [id number] Univers 01:07:00 KELLY cantu [facility] 2022-11-14 2022-11-28 Inpatient 3 [facility] ENCPL DELVIS [id number] [facility] 20:40:00 13:29:00 shaggy 0[facility] [place] 2021-08-22 2021-08-22 Emergency X [facility] ERT [id number] Univers 06:21:00 08:02:00 [facility] 2021-08-22 2021-08-22 Emergency [facility] [id number] Univers 06:21:00 08:02:00 Sweetie LOTT [id number] i ty roxana WARREN [id number] [facility] [id number] [facility] 084 Branch 2021-08-09 2021-08-09 Outpatient JACQUELYN HAINES [id number] [facility] 10:27:03 10:27:03 ADRIANA lopez of Medicin e 2020-12-28 2020-12-28 Telephone [facility] [id number] Univers 00:00:00 00:00:00 Calvin H PRIMARY [id number] it y of [id number] [id number] [place] dical 220 Branch 2020-12-28 2020-12-28 Telephone [facility] [id number] 00:00:00 00:00:00 Calvin H PRIMARY [id number] CARE [id number] PAVILLION [id number] 220 2020-12-19 2020-12-19 Transition Tuan Peters [id number] Univers 00:00:00 00:00:00 of Care Ruchi Braswell [id number] it y of [id number] [id number] [facility] 403 Branch 2020-12-19 2020-12-19 Transition Tuan Peters [id number] 00:00:00 00:00:00 of Care Ruchi Braswell [id number] [place] [id number] [facility] 2020-12-11 2020-12-17 [facility] Paco Lacey [id number] Univers 05:11:00 16:00:00 Encounter Vika Harrisony [id number] ity of [facility] [id number] [place] [id number] [facility] 096 Branch 2020-12-11 2020-12-17 Inpatient X [facility] [id number] Univers 05:11:00 16:00:00 ity of [facility] 2020-12-11 2020-12-17 [facility] Paco Lacey 1.2.840.1 [id number] 05:11:00 16:00:00 Encounter Vika Harrison G Sarah Ann [id number] [facility] [id number] [id number] 2020-11-16 2020-11-16 Emergency X , [facility] ERT [id number] Univers 09:31:00 09:31:00 PACO cantu of [facility] 2020-11-11 2020-11-11 Orders Doctor BASILIA [id number] Univers 00:00:00 00:00:00 Only Unassigned, NATTY [id number] ity of [place] [facility] [id number] Jeff as [id number] [address] 2020-11-11 2020-11-11 Orders Doctor BASILIA 1.2.840.114 [id number] 00:00:00 00:00:00 Only Unassigned, NATTY [id number] [place] [facility] [id number] [id number] 2020-11-07 2020-11-07 Telephone [facility] [id number] Univers 00:00:00 00:00:00 Angi Lott [id number] ity of [id number] Profess[place] [id number] [address] 2020-11-07 2020-11-07 Telephone [facility] [id number] 00:00:00 00:00:00 Angi Lott [id number] [place] [id number] Professio [id number] [address] 2020-10-30 2020-10-30 Orders Doctor BASILIA 1.2.840.114 [id number] Univers 00:00:00 00:00:00 Only Unassigned, NATTY [id number] ity of [place] [facility] [id number] Jeff as [id number] [address] 2020-10-30 2020-10-30 Orders Doctor CUI 1.2.840.114 [id number] 00:00:00 00:00:00 Only Unassigned, NATTY [id number] [place] [facility] [id number] [id number] 009 2020-09-26 2020-09-26 Telephone STONE Mccabe 1.2.840.114 [id number] Univers 00:00:00 00:00:00 Jl Renato [facility] [id number] i ty of CLINICS 4[place]2.7.2.[place] [id number] [facility] 027 Branch 2020-09-26 2020-09-26 Telephone STONE Mccabe 1.2.840.114 [id number] 00:00:00 00:00:00 Jl Renato [facility] [id number] CLINICS [id number] [id number] 2020-09-01 2020-09-01 Orders Doctor BASILIA 1.2.840.114 [id number] Univers 00:00:00 00:00:00 Only Unassigned, NATTY [id number] ity of [place] [facility] [id number] Jeff as [id number] [facility] 009 Branch 2020-09-01 2020-09-01 Orders Doctor BASILIA 1.2.840.114 [id number] 00:00:00 00:00:00 Only Unassigned, NATTY [id number] [place] [facility] [id number] 009 2020-08-25 2020-08-25 Transition Tuan Peters 1.2.840.114 [id number] [facility] 00:00:00 00:00:00 of Care Ruchi Braswell 350.1.13.10 it [place] [phone] [facility] [address] 2020-08-25 2020-08-25 Transition Tuan Peters 1.2.840.114 [id number] 00:00:00 00:00:00 of Care Ruchi Braswell 350.1.13.10 [place] 4.2.7.2.686 [phone] 403 2020-08-21 2020-08-23 [facility] Kelly [place] 1. 2.840.114 [id number] Univers 01:07:00 18:35:00 Encounter Mukul Gallardo 350.1.13. [address] [facility] 4.2.7.2.686 Jeff as [phone] [place] [id number] [place] 2020-08-21 2020-08-23 [facility] Ayleen [place] 1.2.840.114 [id number] 01:07:00 18:35:00 Encounter Kelly Amaya 350.1.13.10 [facility] 4.2.7.2.686 [phone] 095 Results Test Description Test Time Test Comments Results Result Comments Source POCT GLUCOSE (AUTOMATED) 2020-12-17 15:43:35 Test Item Value Reference Range Interpretation Comme nts POCT GLU (test code = 8680748846) 129 mg/dL 70-110 H Lab Interpretation (test code = 72577-6) Abnormal [facility] METABOLIC PANEL (NA, K, CL, CO2, GLUCOSE, BUN, CREATININE, CA)2020-12-17 11:45:07 Test Item Value Reference Range Interpretation Comments NA (test code = 137 mmol/L 135-145 3546086417) K (test code = 3.5 mmol/L 3.5-5.0 0874954394) CL (test code = 103 mmol/L 98-108 7223263153) CO2 TOTAL (test code = 26 mmol/L 23-31 4621639591) AGAP (test code = 2-16 1908311787) BUN (test code = 11 mg/dL 7-23 2648941180) GLUCOSE (test code = 175 mg/dL 70-110 H 0715621520) CREATININE (test code = 0.62 mg/dL 0.60-1.25 3001218777) CALCIUM (test code = 9.0 mg/dL 8.6-10.6 9658872883) eGFR Calculation mL/min/1.73m2 (Non-) (test code = 3686190558) eGFR Calculation mL/min/1.73m2 () (test code = 7451171665) JAMES (test code = JAMES) Association of [...] tests). Lab Interpretation Abnormal (test code = 49118-4) [facility] WITH [id number] 11:07:27 Test Item Value Reference Range Interpretation Comments WBC (test code = See_Comment H [Automated 6036-2) message] The sy stem which generated this result transmitted reference range : 4.20 - 10.70 10*3/?L. The reference range was not used to interpret this result as normal/abnormal . RBC (test code = See_Comment [Automated 546-8) message] The sy stem which generated this [...] RDW-SD (test code = 45.2 fL 38.5-51.6 13567-9) RDW-CV (test code = 16.9 % 12.1-15.4 H 788-0) PLT (test code = See_Comment H [Automated 777-3) message] The sy stem which generated this result transmitted reference range : 150 - 328 10*3/ ?L. The reference r torito was not used to interpret this result as normal/abnormal . MPV (test code = 8.1 fL 9.8-13.0 L 64294-6) NRBC/100 WBC (test See_Comment [Automat ed code = 0444741314) message] The system which generated this result transmitted reference range : 0.0 - 10.0 /100 WBCs. The refer ence range was not u sed to interpret th is result as normal/abnormal . NRBC x10^3 (test code <0.01 See_Comment [Auto mated = 3212993432) message] The s ystem which generated this result transmitted reference range : 10*3/?L. The reference range was not used to interpret this result as normal/abnormal . GRAN MAT (NEUT) % 72.8 % (test code = 770-8) IMM GRAN % (test code 0.60 % = 1639509681) LYMPH % (test code = 18.4 % 736-9) MONO % (test code = 5.7 % 5905-5) EOS % (test code = 1.8 % 713-8) BASO % (test code = 0.7 % 706-2) GRAN MAT x10^3(ANC) 8.23 10*3/uL 1.99-6.95 H (test code = 7789984216) IMM GRAN x10^3 (test 0.07 10*3/uL 0.00-0.06 H code = 3151100246) LYMPH x10^3 (test code 2.08 10*3/uL 1.09-3.23 = 731-0) MONO x10^3 (test code 0.65 10*3/uL 0.36-1.02 = 742-7) EOS x10^3 (test code = 0.20 10*3/uL 0.06-0.53 711-2) BASO x10^3 (test code 0.08 10*3/uL 0.01-0.09 = 704-7) Lab Interpretation Abnormal (test code = 26551-2) [facility] 06:03:38 Test Item Value Reference Range Interpretation Comments POCT GLU (test code = 5010520087) 75 mg/dL 70-110 Lab Interpretation (test code = Normal 74758-1) [facility], [id number] 00:01:00 Test Item Value Reference Range Interpretation Comments VIT B6 (test code = 13.1 nmol/L 20.0-125.0 L INTERPRE TIVE 83896-1) INFORMATION: Vi tamin B6 (Pyridoxal 5-Phosphate) Pyridoxal 5'-phosphate me asured in a specimen collected follo wing an 8-hour or overnight fast accurately clara cates vitamin B6 nutritional sta tus. Non-fasting spe cimen concentration reflects recent vitamin intake. This test was develo ped and its perform ance characteristics determined by [facility]. I t has not been cleare d or approved by the [place] Food and Drug Administration. This test was perfor med in a CLIA certifie d laboratory and is intended for cl inical purposes.Perfor med By: [employer] [place] [address] [id number] Director: Namrata Klein MD Lab Interpretation Abnormal (test code = 42606-9) [facility] TIBIA FIBULA 2 VW [id number] 23:57:09 Tricompartmental knee joint osteoarthrosis.XR TIBIA FIBULA [...] No acute fracture or dislocation.IMPRESSIONTricompartmental knee joint osteoarthrosis.[facility] GLUCOSE (AUTOMATED) 2020-12-16 23:27:00 Test Item Value Reference Range Interpretation Comments POCT GLU (test code = 8007972682) 114 mg/dL 70-110 H Lab Interpretation (test code = Abnormal 96863-7) [facility] GLUCOSE (AUTOMATED)2020-12-16 20:12:00 Test Item Value Reference Range Interpretation Comments POCT GLU (test code = 2882035014) 105 mg/dL 70-110 Lab Interpretation (test code = Normal 15530-3) [facility] GLUCOSE (AUTOMATED)2020-12-16 14:44:00 Test Item Value Reference Range Interpretation Comments POCT GLU (test code = 3550140353) 153 mg/dL 70-110 H Lab Interpretation (test code = Abnormal 47790-1) [facility] METABOLIC PANEL (NA, K, CL, CO2, GLUCOSE, BUN, CREATININE, CA)2020-12-16 14:23:00 Test Item Value Reference Range Interpretation Comments NA (test code = 138 mmol/L 135-145 2299158110) K (test code = 3.4 mmol/L 3.5-5.0 L 9959666880) CL (test code = 100 mmol/L 98-108 2878552699) CO2 TOTAL (test code = 31 mmol/L 23-31 3098318884) AGAP (test code = 2-16 6580156365) BUN (test code = 11 mg/dL 7-23 4763493210) GLUCOSE (test code = 162 mg/dL 70-110 H 8367150533) CREATININE (test code = 0.64 mg/dL 0.60-1.25 0732490772) CALCIUM (test code = 8.9 mg/dL 8.6-10.6 9701624641) eGFR Calculation mL/min/1.73m2 (Non-) (test code = 5596908215) eGFR Calculation mL/min/1.73m2 () (test code = 0392522172) JAMES (test code = JAMES) Association of [...] tests). Lab Interpretation Abnormal (test code = 93498-8) [facility] WITH [id number] 14:05:00 Test Item Value Reference Range Interpretation Comments WBC (test code = See_Comment H [Automated 4631-2) message] The sy stem which generated this result transmitted reference range : 4.20 - 10.70 10*3/?L. The reference range was not used to interpret this result as normal/abnormal . RBC (test code = See_Comment [Automated 080-8) message] The sy stem which generated this [...] RDW-SD (test code = 45.4 fL 38.5-51.6 19281-6) RDW-CV (test code = 17.0 % 12.1-15.4 H 788-0) PLT (test code = See_Comment H [Automated 777-3) message] The sy stem which generated this result transmitted reference range : 150 - 328 10*3/ ?L. The reference r torito was not used to interpret this result as normal/abnormal . MPV (test code = 8.0 fL 9.8-13.0 L 33168-4) NRBC/100 WBC (test See_Comment [Automat ed code = 9704409091) message] The system which generated this result transmitted reference range : 0.0 - 10.0 /100 WBCs. The refer ence range was not u sed to interpret th is result as normal/abnormal . NRBC x10^3 (test code <0.01 See_Comment [Auto mated = 6780734750) message] The s ystem which generated this result transmitted reference range : 10*3/?L. The reference range was not used to interpret this result as normal/abnormal . GRAN MAT (NEUT) % 70.0 % (test code = 770-8) IMM GRAN % (test code 0.70 % = 6987332708) LYMPH % (test code = 20.5 % 736-9) MONO % (test code = 7.1 % 5905-5) EOS % (test code = 1.0 % 713-8) BASO % (test code = 0.7 % 706-2) GRAN MAT x10^3(ANC) 9.44 10*3/uL 1.99-6.95 H (test code = 4764924907) IMM GRAN x10^3 (test 0.09 10*3/uL 0.00-0.06 H code = 3697302954) LYMPH x10^3 (test code 2.76 10*3/uL 1.09-3.23 = 731-0) MONO x10^3 (test code 0.96 10*3/uL 0.36-1.02 = 742-7) EOS x10^3 (test code = 0.13 10*3/uL 0.06-0.53 711-2) BASO x10^3 (test code 0.10 10*3/uL 0.01-0.09 H = 704-7) Lab Interpretation Abnormal (test code = 94431-6) [facility] Culture - Peripheral # [id number] 13:01:00 Test Item Value Reference Range Interpretation Comments Blood Culture-Aerobic No organisms No growth Previo us (test code = 11115-8) isolated prelim inary verified result was Culture In Progress on 12/11/2020 at 100 1 CSTPrevious preliminary verified result was No growth a t 24 hours on 12/12/2020 at 070 1 CSTPrevious preliminary verified result was No growth a t 48 hours on 12/13/2020 at 070 1 CSTPrevious preliminary verified result was No growth a t 72 hours on 12/14/2020 at 070 1 [employer] Blood No organisms No growth Previous Culture-Anaerobic isolated preliminar y (test code = 96318-2) verifi ed result was Culture In Progress on 12/11/2020 at 100 1 CSTPrevious preliminary verified result was No growth a t 24 hours on 12/12/2020 at 070 1 CSTPrevious preliminary verified result was No growth a t 48 hours on 12/13/2020 at 070 1 CSTPrevious preliminary verified result was No growth a t 72 hours on 12/14/2020 at 070 1 [employer] Lab Interpretation Normal (test code = 56580-5) [facility] Culture - Peripheral # [id number] 13:01:00 Test Item Value Reference Range Interpretation Comments Blood Culture-Aerobic No organisms No growth Previo us (test code = 26265-4) isolated prelim inary verified result was Culture In Progress on 12/11/2020 at 100 1 CSTPrevious preliminary verified result was No growth a t 24 hours on 12/12/2020 at 070 1 CSTPrevious preliminary verified result was No growth a t 48 hours on 12/13/2020 at 070 1 CSTPrevious preliminary verified result was No growth a t 72 hours on 12/14/2020 at 070 1 [employer] Blood No organisms No growth Previous Culture-Anaerobic isolated preliminar y (test code = 63469-7) verifi ed result was Culture In Progress on 12/11/2020 at 100 1 CSTPrevious preliminary verified result was No growth a t 24 hours on 12/12/2020 at 070 1 CSTPrevious preliminary verified result was No growth a t 48 hours on 12/13/2020 at 070 1 CSTPrevious preliminary verified result was No growth a t 72 hours on 12/14/2020 at 070 1 [employer] Lab Interpretation Normal (test code = 52123-6) [facility] GLUCOSE (AUTOMATED)2020-12-16 04:01:00 Test Item Value Reference Range Interpretation Comments POCT GLU (test code = 9530255798) 156 mg/dL 70-110 H Lab Interpretation (test code = Abnormal 93750-9) [facility] GLUCOSE (AUTOMATED)2020-12-16 00:24:00 Test Item Value Reference Range Interpretation Comments POCT GLU (test code = 6639194251) 115 mg/dL 70-110 H Lab Interpretation (test code = Abnormal 23500-4) [facility] CHEST PULMONARY [id number] 23:34:55No pulmonary emboli. No interval change in [...] stableappearance of intra and extrahepatic biliary ductal dilatation.[facility] GLUCOSE (AUTOMATED)2020-12-15 19:28:00 Test Item Value Reference Range Interpretation Comments POCT GLU (test code = 3135179612) 140 mg/dL 70-110 H Lab Interpretation (test code = Abnormal 78295-5) [facility] 15:26:00 Test Item Value Reference Range Interpretation Comments MAGNESIUM (test code = 3469888141) 2.2 mg/dL 1.7-2.4 Lab Interpretation (test code = Normal 99948-6) [facility] GLUCOSE (AUTOMATED)2020-12-15 15:15:00 Test Item Value Reference Range Interpretation Comments POCT GLU (test code = 4986665684) 181 mg/dL 70-110 H Lab Interpretation (test code = Abnormal 27992-8) [facility]OL[facility] (NA, K, CL, CO2, GLUCOSE, BUN, CREATININE, CA)2020-12-15 13:07:00 Test Item Value Reference Range Interpretation Comments NA (test code = 136 mmol/L 135-145 9539676036) K (test code = 3.6 mmol/L 3.5-5.0 0314746568) CL (test code = 96 mmol/L 98-108 L 2942629802) CO2 TOTAL (test code = 29 mmol/L 23-31 4788465545) AGAP (test code = 2-16 5177260913) BUN (test code = 12 mg/dL 7-23 8725288770) GLUCOSE (test code = 183 mg/dL 70-110 H 3713220448) CREATININE (test code = 0.70 mg/dL 0.60-1.25 8791493377) CALCIUM (test code = 9.2 mg/dL 8.6-10.6 9936206421) eGFR Calculation mL/min/1.73m2 (Non-) (test code = 2780649293) eGFR Calculation mL/min/1.73m2 () (test code = 4375333125) JAMES (test code = JAMES) Association of [...] tests). Lab Interpretation Abnormal (test code = 87043-1) [facility] WITH [id number] 12:32:00 Test Item Value Reference Range Interpretation [...] RDW-SD (test code = 44.4 fL 38.5-51.6 65569-4) RDW-CV (test code = 17.7 % 12.1-15.4 H 788-0) PLT (test code = See_Comment H [Automated 777-3) message] The system which generated this result transmit ronan reference range : 150 - 328 10*3/ ?L. The reference range was not u sed to interpret th is result as normal/abnormal . MPV (test code = 8.1 fL 9.8-13.0 L 63030-0) NRBC/100 WBC (test See_Comment [Automat ed code = 1463252589) message] The system which generated this result transmit ronan reference range : 0.0 - 10.0 /100 WBCs. The reference range was not used to interpret this result as normal/abnormal . NRBC x10^3 (test code <0.01 See_Comment [Auto mated = 7844737457) message] The system which generated this result transmit ronan reference range : 10*3/?L. The reference range was not used to interpret this result as normal/abnormal . GRAN MAT (NEUT) % 74.5 % (test code = 770-8) IMM GRAN % (test code 0.70 % = 2430972361) LYMPH % (test code = 17.4 % 736-9) MONO % (test code = 6.8 % 5905-5) EOS % (test code = 0.2 % 713-8) BASO % (test code = 0.4 % 706-2) GRAN MAT x10^3(ANC) 11.99 10*3/uL 1.99-6.95 H (test code = 0466432339) IMM GRAN x10^3 (test 0.11 10*3/uL 0.00-0.06 H code = 3274225980) LYMPH x10^3 (test code 2.80 10*3/uL 1.09-3.23 = 731-0) MONO x10^3 (test code 1.10 10*3/uL 0.36-1.02 H = 742-7) EOS x10^3 (test code = 0.03 10*3/uL 0.06-0.53 L 711-2) BASO x10^3 (test code 0.06 10*3/uL 0.01-0.09 = 704-7) Lab Interpretation Abnormal (test code = 85940-7) [facility] 04:16:00 Test Item Value Reference Range Interpretation Comments POCT GLU (test code = 0358958196) 200 mg/dL 70-110 H Lab Interpretation (test code = Abnormal 07061-7) [facility] B[facility] (THIAMINE), WHOLE [id number] 00:30:00 Test Item Value Reference Range Interpretation Comments Vitamin B1, Whole 136 nmol/L 70-180 INTERPRETI VE INFORMATION: Blood (test code = Vitamin B 1, Whole Blood 47838-6) This assay júnior ures the concentration o [...] purposes.Perfor med By: [facility] [place], [place] [address]H aboratory Director: Namrata Klein MD [facility] GLUCOSE (AUTOMATED)2020-12-14 23:35:00 Test Item Value Reference Range Interpretation Comments POCT GLU (test code = 1617811046) 151 mg/dL 70-110 H Lab Interpretation (test code = Abnormal 80656-0) [facility] GLUCOSE (AUTOMATED)2020-12-14 19:19:00 Test Item Value Reference Range Interpretation Comments POCT GLU (test code = 0585360720) 193 mg/dL 70-110 H Lab Interpretation (test code = Abnormal 56379-1) [facility] GLUCOSE (AUTOMATED)2020-12-14 15:22:00 Test Item Value Reference Range Interpretation Comments POCT GLU (test code = 3782680631) 221 mg/dL 70-110 H Lab Interpretation (test code = Abnormal 75976-3) [facility] GLUCOSE (AUTOMATED)2020-12-14 02:37:00 Test Item Value Reference Range Interpretation Comments POCT GLU (test code = 8070094910) 210 mg/dL 70-110 H Lab Interpretation (test code = Abnormal 78825-3) [facility] GLUCOSE (AUTOMATED)2020-12-13 23:33:00 Test Item Value Reference Range Interpretation Comments POCT GLU (test code = 9840399194) 182 mg/dL 70-110 H Lab Interpretation (test code = Abnormal 34559-5) [facility] GLUCOSE (AUTOMATED)2020-12-13 18:09:00 Test Item Value Reference Range Interpretation Comments POCT GLU (test code = 3082997344) 150 mg/dL 70-110 H Lab Interpretation (test code = Abnormal 38197-5) [facility] METABOLIC PANEL (NA, K, CL, CO2, GLUCOSE, BUN, CREATININE, CA)2020-12-13 16:27:00 Test Item Value Reference Range Interpretation Comments NA (test code = 136 mmol/L 135-145 7892764198) K (test code = 3.7 mmol/L 3.5-5.0 8765190994) CL (test code = 96 mmol/L 98-108 L 3766826201) CO2 TOTAL (test code = 29 mmol/L 23-31 5672257756) AGAP (test code = 2-16 5062606739) BUN (test code = 6 mg/dL 7-23 L 9992512399) GLUCOSE (test code = 212 mg/dL 70-110 H 7341345434) CREATININE (test code = 0.61 mg/dL 0.60-1.25 7272476130) CALCIUM (test code = 9.5 mg/dL 8.6-10.6 0405094625) eGFR Calculation mL/min/1.73m2 (Non-) (test code = 7999107671) eGFR Calculation mL/min/1.73m2 () (test code = 0152155332) JAMES (test code = JAMES) Association of [...] tests). Lab Interpretation Abnormal (test code = 60955-3) [facility] WITH [id number] 16:10:00 Test Item Value Reference Range Interpretation [...] RDW-SD (test code = 43.3 fL 38.5-51.6 95307-7) RDW-CV (test code = 16.2 % 12.1-15.4 H 788-0) PLT (test code = See_Comment H [Automated 777-3) message] The sy stem which generated this result transmitted reference range : 150 - 328 10*3/ ?L. The reference r torito was not used to interpret this result as normal/abnormal . MPV (test code = 8.2 fL 9.8-13.0 L 09327-1) NRBC/100 WBC (test See_Comment [Automat ed code = 7812067030) message] The system which generated this result transmitted reference range : 0.0 - 10.0 /100 WBCs. The refer ence range was not u sed to interpret th is result as normal/abnormal . NRBC x10^3 (test code <0.01 See_Comment [Auto mated = 3633421773) message] The s ystem which generated this result transmitted reference range : 10*3/?L. The reference range was not used to interpret this result as normal/abnormal . GRAN MAT (NEUT) % 86.2 % (test code = 770-8) IMM GRAN % (test code 0.70 % = 9949779464) LYMPH % (test code = 10.2 % 736-9) MONO % (test code = 2.5 % 5905-5) EOS % (test code = 0.1 % 713-8) BASO % (test code = 0.3 % 706-2) GRAN MAT x10^3(ANC) 9.61 10*3/uL 1.99-6.95 H (test code = 4298859260) IMM GRAN x10^3 (test 0.08 10*3/uL 0.00-0.06 H code = 9904698780) LYMPH x10^3 (test code 1.14 10*3/uL 1.09-3.23 = 731-0) MONO x10^3 (test code 0.28 10*3/uL 0.36-1.02 L = 742-7) EOS x10^3 (test code = <0.03 0.06-0.53 L 711-2) BASO x10^3 (test code 0.03 10*3/uL 0.01-0.09 = 704-7) Lab Interpretation Abnormal (test code = 34719-6) [facility] 14:16:00 Test Item Value Reference Range Interpretation Comments POCT GLU (test code = 2077592490) 236 mg/dL 70-110 H Lab Interpretation (test code = Abnormal 56639-5) [facility] COVID [id number] 04:58:00COVID DMT InterpretationInterpretation/Recommendations: Molecular NAAT Tests for [...] COVID-19 testing the patient has had at [facility], including molecular NAAT testing (more commonly known as PCR testing and Rapid ID Now testing) and antibody testing. It does not take into account any testingthat a patient has had outside of the [facility] medical record. [facility] LABORATORY SERVICESCOVID JijqcwnUUBZ-OqY-5 Rapid ID NOW (no units) ? ? Date ? Value ? 12/11/2020 ? Not Detected ? ? ? 11/16/2020 ? Not Detected ? ? ? 08/21/2020 ? Not Detected ? [facility] 2020-12-13 03:11:00 Test Item Value Reference Range Interpretation Comments POCT GLU (test code = 7927919055) 171 mg/dL 70-110 H Lab Interpretation (test code = Abnormal 37461-6) [facility] GLUCOSE (AUTOMATED)2020-12-13 00:00:00 Test Item Value Reference Range Interpretation Comments POCT GLU (test code = 1110001331) 118 mg/dL 70-110 H Lab Interpretation (test code = Abnormal 15317-2) [facility]2020-12-12 20:29:00 Test Item Value Reference Range Interpretation Comments POCT GLU (test code = 2983227445) 173 mg/dL 70-110 H Lab Interpretation (test code = Abnormal 32951-0) [facility] ABDOMEN [id number] 19:56:17 1. ?Hepatic steatosis. However, limited evaluation [...] main portal veinwasevaluated with color Doppler imaging. [facility] images were obtainedfor the record. COMPARISON: [...] normal where visualized. SPLEEN:No images were obtained. Prmb, Radiant Results Inft User - 12/12/2020 1:57 PM CSTEXAM: US ABDOMEN LIMITEDHISTORY: 70 years-old male with RUQ ultrasound to assess for common bileduct dilation .TECHNIQUE: Limited abdominal ultrasound focused on the liver, biliarysystem, pancreas, and spleen was performed. The main portal vein wasevaluated with color Doppler imaging. [facility] images wereobtainedfor the record.COMPARISON: Ultrasound abdomen [...] this study and agree with the abovereport.[facility]2020-12-12 19:24:00 Test Item Value Reference Range Interpretation Comments POCT GLU (test code = 7469206831) 230 mg/dL 70-110 H Lab Interpretation (test code = Abnormal 34337-9) [facility] CHEST 1 [id number] 15:16:46 Low lung volumes with mild perihilar [...] reviewed this study and agree with theabove report.[facility]2020-12-12 14:34:00 Test Item Value Reference Range Interpretation Comments POCT GLU (test code = 8632100871) 225 mg/dL 70-110 H Lab Interpretation (test code = Abnormal 51256-2) [facility] Alice[facility]INE [id number] 13:28:00 Test Item Value Reference Range Interpretation Comments URINE CULTURE (test < 10,000 CFU/mL mixed code = 630-4) aerobic organisms - suggests endogenous microbial contamination [facility] (NA, K, CL, CO2, GLUCOSE, BUN, CREATININE, CA)2020-12-12 10:05:00 Test Item Value Reference Range Interpretation Comments NA (test code = 136 mmol/L 135-145 6437579235) K (test code = 3.5 mmol/L 3.5-5.0 2577874392) CL (test code = 100 mmol/L 98-108 4561462067) CO2 TOTAL (test code = 31 mmol/L 23-31 4848457303) AGAP (test code = 2-16 7607706400) BUN (test code = 7 mg/dL 7-23 3659765765) GLUCOSE (test code = 259 mg/dL 70-110 H 0648811527) CREATININE (test code = 0.63 mg/dL 0.60-1.25 9277093592) CALCIUM (test code = 8.5 mg/dL 8.6-10.6 L 3556101297) eGFR Calculation mL/min/1.73m2 (Non-) (test code = 6483238158) eGFR Calculation mL/min/1.73m2 () (test code = 9039825308) JAMES (test code = JAMES) Association of [...] tests). Lab Interpretation Abnormal (test code = 22000-7) [facility] AliceMagnesium [id number] 10:05:00 Test Item Value Reference Range Interpretation Comments MAGNESIUM (test code = 1702675222) 1.9 mg/dL 1.7-2.4 Lab Interpretation (test code = Normal 43603-8) [facility] with [id number] 09:48:00 Test Item Value Reference Range Interpretation [...] RDW-SD (test code = 46.0 fL 38.5-51.6 29183-3) RDW-CV (test code = 16.1 % 12.1-15.4 H 788-0) PLT (test code = See_Comment H [Automated 777-3) message] The sy stem which generated this result transmitted reference range : 150 - 328 10*3/ ?L. The reference r torito was not used to interpret this result as normal/abnormal . MPV (test code = 8.6 fL 9.8-13.0 L 20346-3) NRBC/100 WBC (test See_Comment [Automat ed code = 5388734500) message] The system which generated this result transmitted reference range : 0.0 - 10.0 /100 WBCs. The refer ence range was not u sed to interpret th is result as normal/abnormal . NRBC x10^3 (test code <0.01 See_Comment [Auto mated = 8035942769) message] The s ystem which generated this result transmitted reference range : 10*3/?L. The reference range was not used to interpret this result as normal/abnormal . GRAN MAT (NEUT) % 70.2 % (test code = 770-8) IMM GRAN % (test code 0.30 % = 0355311992) LYMPH % (test code = 18.8 % 736-9) MONO % (test code = 5.0 % 5905-5) EOS % (test code = 5.2 % 713-8) BASO % (test code = 0.5 % 706-2) GRAN MAT x10^3(ANC) 6.05 10*3/uL 1.99-6.95 (test code = 5970024437) IMM GRAN x10^3 (test 0.03 10*3/uL 0.00-0.06 code = 9162501254) LYMPH x10^3 (test code 1.62 10*3/uL 1.09-3.23 = 731-0) MONO x10^3 (test code 0.43 10*3/uL 0.36-1.02 = 742-7) EOS x10^3 (test code = 0.45 10*3/uL 0.06-0.53 711-2) BASO x10^3 (test code 0.04 10*3/uL 0.01-0.09 = 704-7) Lab Interpretation Abnormal (test code = 88166-6) [facility] 03:42:00 Test Item Value Reference Range Interpretation Comments POCT GLU (test code = 196 mg/dL 70-110 H Notifi ed Provider [id number]) Lab Interpretation (test Abnormal code = 01043-4) [facility] 02:24:00 Test Item Value Reference Range Interpretation Comments FOLATE SER (test code = 7278203133) 5.8 ng/mL 3.0-20.0 Lab Interpretation (test code = Normal 55250-0) [facility] B12, [id number] 00:55:00 Test Item Value Reference Range Interpretation Comments VIT B12 (test code = 844 pg/mL 240-930 1778975404) JAMES (test code = JAMES) Biotin has been reported to cause a positive bias, interpret results relative to patient's use of biotin. Lab Interpretation (test Normal code = 73216-7) [facility]2020-12-12 00:14:00 Test Item Value Reference Range Interpretation Comments POCT GLU (test code = 4820865981) 164 mg/dL 70-110 H Lab Interpretation (test code = Abnormal 97147-6) [facility] AliceCREATINE [id number] 23:42:00 Test Item Value Reference Range Interpretation Comments CK (test code = 8571211126) <20 33-194 L Lab Interpretation (test code = Abnormal 43324-4) [facility] Alice[facility]YRO[facility] STIMULATING [id number] 23:17:00 Test Item Value Reference Range Interpretation Comments TSH (test code = See_Comment Biotin has been 6206815606) reported to cau se a negative bias, interpret resul ts relative to pat ient's use of biotin. [Automated mess age] The system [employer] h generated this result transmitted ref erence range: 0.45 - 4 .70 mIU/L. The refe rence range was not u sed to interpret this result as normal/abnor mal. Lab Interpretation (test Normal code = 89243-8) [facility]XR HIPS 3 VW [id number] 21:41:53No appreciable fracture lines. RL: 6200 ICAL [...] No osseous erosions.IMPRESSIONNo appreciable fracture lines.RL: [facility] Test Item Value Reference Range Interpretation Comments Procalcitonin (test 0.13 ng/mL <0.07 H code = 9680756813) JAMES (test code = JAMES) INTERPRETATION OF [...] lung abscess/empyema. For further information please refer to:[email or web address] Lab Interpretation Abnormal (test code = 25767-8) [facility]2020-12-11 19:07:00 Test Item Value Reference Range Interpretation Comments POCT GLU (test code = 2825535595) 274 mg/dL 70-110 H Lab Interpretation (test code = Abnormal 08871-1) [facility]MAG[facility]UM2021-03-01 18:31:00 Test Item Value Reference Range Interpretation Comments MAGNESIUM (test code = 6118344289) 1.9 mg/dL 1.7-2.4 Lab Interpretation (test code = Normal 35850-4) [facility] AliceFERRITIN [id number] 18:31:00 Test Item Value Reference Range Interpretation Comments FERRITIN (test code = 178.0 ng/mL 18.0-464.0 7084567765) JAMES (test code = JAMES) Biotin has been reported to cause a negative bias, interpret results relative to patient's use of biotin. Lab Interpretation (test Normal code = 53051-8) [facility] HEAD WO [id number] 14:36:47 No acute intracranial abnormality. Dilated ventricles [...] this study and agree with the abovereport.[facility]INAL[facility]IS2021-[facility]-01 14:28:00 Test Item Value Reference Range Interpretation Comments APPEARANCE (test code = Clear Clear 6606203119) COLOR (test code = Yellow Yellow 4034556903) PH (test code = 4.8-8.0 2458370875) SP GRAVITY (test code = 1.003-1.030 5097047214) GLU U QUAL (test code = 500 mg/dL Normal A 6377296988) BLOOD (test code = Negative Negative 2579998796) KETONES (test code = 5 mg/dL Negative A 9148825749) PROTEIN (test code = Negative Negative 2887-8) UROBILIN (test code = Normal Normal 2160855184) BILIRUBIN (test code = Negative Negative 9100745202) NITRITE (test code = Negative Negative 4630542334) LEUK RYAN (test code = Negative Negative 0942390052) RBC/HPF (test code = See_Comment [Autom ated message] 3852639086) The system [employer] generated this result transmit ronan reference range : 0 - 3 HPF. The refe rence range was not u sed to interpret th is result as normal/abnormal . WBC/HPF (test code = See_Comment [Autom ated message] 2656347498) The system [employer] generated this result transmit ronan reference range : 0 - 5 HPF. The refe rence range was not u sed to interpret th is result as normal/abnormal . BACTERIA (test code = Negative Negative 3496787911) MUCOUS (test code = Slight Negative LPF A 9432205895) SQ EPITH (test code = HPF 5514212287) Lab Interpretation (test Abnormal code = 87598-9) [facility] (ID NOW RAPID TESTING)2020-12-11 13:10:00 Test Item Value Reference Range Interpretation Comments SARS-CoV-2 Rapid ID NOW Not Detected Not Detected (test code = 14784-2) JAMES (test code = JAMES) ID NOW COVID-19 Assay is an isothermal nucleic acid amplification test intended for the qualitative detection of nucleic acid from SARS-CoV-2 viral RNA in nasopharyngeal (PRESS WASHER) specimens. It is used under Emergency Use [...] indicated. Lab Interpretation Normal (test code = 87634-8) [facility]. METABOLIC PANEL (17949)2020-12-11 12:29:00 Test Item Value Reference Range Interpretation Comments NA (test code = 136 mmol/L 135-145 7002580395) K (test code = 3.5 mmol/L 3.5-5.0 6980017619) CL (test code = 95 mmol/L 98-108 L 4502512164) CO2 TOTAL (test code = 35 mmol/L 23-31 H 3311704113) AGAP (test code = 2-16 8273297994) BUN (test code = 9 mg/dL 7-23 6371845445) GLUCOSE (test code = 329 mg/dL 70-110 H 4377614314) CREATININE (test code = 0.72 mg/dL 0.60-1.25 9709276806) TOTAL BILI (test code = 0.6 mg/dL 0.1-1.8 3679711695) CALCIUM (test code = 9.0 mg/dL 8.6-10.6 4684301739) T PROTEIN (test code = 6.8 g/dL 6.3-8.2 0491320653) ALBUMIN (test code = 3.8 g/dL 3.5-5.0 2535348976) ALK PHOS (test code = 288 U/L 34-122 H 5209876914) ALTv (test code = 46 U/L 5-50 1742-6) AST(SGOT) (test code = 38 U/L 13-40 9155653078) eGFR Calculation mL/min/1.73m2 (Non-) (test code = 6007473769) eGFR Calculation mL/min/1.73m2 () (test code = 1619075043) JAMES (test code = JAMES) Association of [...] tests). Lab Interpretation Abnormal (test code = 69083-7) [facility] AliceLactic Acid Whole [id number] 12:23:00 Test Item Value Reference Range Interpretation Comments LACTIC ACID (test code = 2.09 mmol/L 0.50-2.20 7574726864) Lab Interpretation (test code = Normal 62213-2) [facility] WITH [id number] 12:17:00 Test Item Value Reference Range Interpretation Comments WBC (test code = See_Comment H [Automated 4546-2) message] The sy stem which generated this result transmitted reference range : 4.20 - 10.70 10*3/?L. The reference range was not used to interpret this result as normal/abnormal . RBC (test code = See_Comment [Automated 519-8) message] The sy stem which generated this [...] RDW-SD (test code = 44.9 fL 38.5-51.6 24742-6) RDW-CV (test code = 15.9 % 12.1-15.4 H 788-0) PLT (test code = See_Comment H [Automated 777-3) message] The sy stem which generated this result transmitted reference range : 150 - 328 10*3/ ?L. The reference r torito was not used to interpret this result as normal/abnormal . MPV (test code = 8.3 fL 9.8-13.0 L 97897-9) NRBC/100 WBC (test See_Comment [Automat ed code = 0398581084) message] The system which generated this result transmitted reference range : 0.0 - 10.0 /100 WBCs. The refer ence range was not u sed to interpret th is result as normal/abnormal . NRBC x10^3 (test code <0.01 See_Comment [Auto mated = 3276054085) message] The s ystem which generated this result transmitted reference range : 10*3/?L. The reference range was not used to interpret this result as normal/abnormal . GRAN MAT (NEUT) % 77.9 % (test code = 770-8) IMM GRAN % (test code 0.50 % = 7409152960) LYMPH % (test code = 12.2 % 736-9) MONO % (test code = 5.2 % 5905-5) EOS % (test code = 3.7 % 713-8) BASO % (test code = 0.5 % 706-2) GRAN MAT x10^3(ANC) 9.57 10*3/uL 1.99-6.95 H (test code = 6658308674) IMM GRAN x10^3 (test 0.06 10*3/uL 0.00-0.06 code = 9281707491) LYMPH x10^3 (test code 1.50 10*3/uL 1.09-3.23 = 731-0) MONO x10^3 (test code 0.64 10*3/uL 0.36-1.02 = 742-7) EOS x10^3 (test code = 0.46 10*3/uL 0.06-0.53 711-2) BASO x10^3 (test code 0.06 10*3/uL 0.01-0.09 = 704-7) Lab Interpretation Abnormal (test code = 93548-1) [facility] ONLY COVID [id number] 18:43:00COVID DMT InterpretationInterpretation/Recommendations: Molecular NAAT Test Results [...] a nasopharyngeal sample, there is approximately a rpk-nq-gomnr chance that the patient was infected and [...] Identification of SARS-CoV-2 RNA:SARS-CoV-2 PCR assays including Martin Aptima, Martin Fusion, Barrett RealTime, and shoutr Xpert Xpress. SARS-CoV-2 Rapid ID NOW by the ID NOW assay. ? B. Tests for the Identification of SARS-CoV-2 Antibodies: Chemiluminescent immunoassays including Access SARS-CoV-2 IgM (DXI 600), [employer] Iqcj-BOXA-LiZ-2 IgG (Vitros 5600 and Vitros 3600), and Barrett SARS-CoV-2 IgG (BLIND STITCH MACHINE OPERATOR I System). These interpretation comments assume that only the above testing was utilized and that the approved acceptable specimen type(s) were used for a given test. These interpretations are autopopulated into [employer] based on computerized algorithms matching an interpretation code number to the patient's set of test results. While a clinical pathologist evaluates the combinations for clinical accuracy, clinical correlation is recommended as it may not take into account very remote prior testing. Furthermore, it does not consider testing a patient may have had outside of the [facility] system. Additionally, it should be noted that the computerized algorithm treats the results for PCR testing and Rapid ID NOW testing (also PCR) synonymously, and thus, refers to both testing methodologies as PCR tests. Given that the sensitivity of [facility]'s Rapid ID NOW testing platform is [...] pathogen panel may be beneficialin this setting. [facility] LABORATORY SERVICESCOVID NoyziyhLOXL-WlJ-4 Rapid ID NOW (no units) ? ? Date ? Value ? 08/21/2020 ? Not Detected ? [facility]2020-08-23 18:25:00 Test Item Value Reference Range Interpretation Comments POCT GLU (test code = 4907650068) 297 mg/dL 70-110 H Lab Interpretation (test code = Abnormal 31788-6) [facility] GLUCOSE (AUTOMATED)2020-08-23 14:25:00 Test Item Value Reference Range Interpretation Comments POCT GLU (test code = 2510210292) 181 mg/dL 70-110 H Lab Interpretation (test code = Abnormal 23579-2) [facility] Metabolic Panel (NA, K, CL, CO2, GLUCOSE, BUN, CREATININE, CA)2020-08-23 11:45:00 Test Item Value Reference Range Interpretation Comments NA (test code = 132 mmol/L 135-145 L 4489496875) K (test code = 4.0 mmol/L 3.5-5 0151220615) CL (test code = 96 mmol/L 98-108 L 5164061747) CO2 TOTAL (test code = 33 mmol/L 23-31 H 5002309319) AGAP (test code = 2-16 2757441235) BUN (test code = 9 mg/dL 7-23 8415304102) GLUCOSE (test code = 176 mg/dL 70-110 H 1495332148) CREATININE (test code = 0.66 mg/dL 0.6-1.25 1782047575) CALCIUM (test code = 8.5 mg/dL 8.6-10.6 L 7484013058) eGFR Calculation mL/min/1.73m2 (Non-) (test code = 2543666241) eGFR Calculation mL/min/1.73m2 () (test code = 3223861531) JAMES (test code = JAMES) Association of [...] tests). Lab Interpretation Abnormal (test code = 19177-3) [facility] AliceMagnesium [id number] 11:45:00 Test Item Value Reference Range Interpretation Comments MAGNESIUM (test code = 9585250539) 2.0 mg/dL 1.7-2.4 Lab Interpretation (test code = Normal 42773-2) [facility] with [id number] 11:38:00 Test Item Value Reference Range Interpretation Comments WBC (test code = See_Comment [Automated 1018-2) message] The sy stem which generated this result transmitted reference range : 4.20 - 10.70 10*3/?L. The reference range was not used to interpret this result as normal/abnormal . RBC (test code = See_Comment [Automated 482-7) message] The sy stem which generated this [...] RDW-SD (test code = 41.8 fL 38.5-51.6 54149-9) RDW-CV (test code = 14.3 % 12.1-15.4 788-0) PLT (test code = See_Comment H [Automated 777-3) message] The sy stem which generated this result transmitted reference range : 150 - 328 10*3/ ?L. The reference r torito was not used to interpret this result as normal/abnormal . MPV (test code = 8.0 fL 9.8-13 L 09166-7) NRBC/100 WBC (test See_Comment [Automat ed code = 7116339079) message] The system which generated this result transmitted reference range : 0.0 - 10.0 /100 WBCs. The refer ence range was not u sed to interpret th is result as normal/abnormal . NRBC x10^3 (test code <0.01 See_Comment [Auto mated = 6048680167) message] The s ystem which generated this result transmitted reference range : 10*3/?L. The reference range was not used to interpret this result as normal/abnormal . GRAN MAT (NEUT) % 61.5 % (test code = 770-8) IMM GRAN % (test code 2.00 % = 1679700377) LYMPH % (test code = 25.5 % 736-9) MONO % (test code = 6.3 % 5905-5) EOS % (test code = 3.7 % 713-8) BASO % (test code = 1.0 % 706-2) GRAN MAT x10^3(ANC) 5.29 10*3/uL 1.99-6.95 (test code = 6489455158) IMM GRAN x10^3 (test 0.17 10*3/uL 0-0.06 H code = 5118830899) LYMPH x10^3 (test code 2.19 10*3/uL 1.09-3.23 = 731-0) MONO x10^3 (test code 0.54 10*3/uL 0.36-1.02 = 742-7) EOS x10^3 (test code = 0.32 10*3/uL 0.06-0.53 711-2) BASO x10^3 (test code 0.09 10*3/uL 0.01-0.09 = 704-7) Lab Interpretation Abnormal (test code = 33450-2) [facility] GLUCOSE (AUTOMATED)2020-08-23 10:22:00 Test Item Value Reference Range Interpretation Comments POCT GLU (test code = 9148930801) 164 mg/dL 70-110 H Lab Interpretation (test code = Abnormal 71003-9) [facility] GLUCOSE (AUTOMATED)2020-08-23 05:56:00 Test Item Value Reference Range Interpretation Comments POCT GLU (test code = 6211455149) 242 mg/dL 70-110 H Lab Interpretation (test code = Abnormal 16424-7) [facility] GLUCOSE (AUTOMATED)2020-08-23 03:02:00 Test Item Value Reference Range Interpretation Comments POCT GLU (test code = 9969888591) 210 mg/dL 70-110 H Lab Interpretation (test code = Abnormal 60295-3) [facility] GLUCOSE (AUTOMATED)2020-08-22 23:40:00 Test Item Value Reference Range Interpretation Comments POCT GLU (test code = 3493882355) 267 mg/dL 70-110 H Lab Interpretation (test code = Abnormal 96376-1) [facility] GLUCOSE (AUTOMATED)2020-08-22 19:08:00 Test Item Value Reference Range Interpretation Comments POCT GLU (test code = 0348989640) 191 mg/dL 70-110 H Lab Interpretation (test code = Abnormal 32922-1) [facility] GLUCOSE (AUTOMATED)2020-08-22 13:50:00 Test Item Value Reference Range Interpretation Comments POCT GLU (test code = 5525616012) 174 mg/dL 70-110 H Lab Interpretation (test code = Abnormal 28127-7) [facility] [id number] 12:59:00 Test Item Value Reference Range Interpretation Comments URINE CULTURE (test No aerobic growth (< code = 630-4) 1000 CFU/mL) [facility] with [id number] 11:28:00 Test Item Value Reference Range Interpretation [...] RDW-SD (test code = 42.5 fL 38.5-51.6 58532-6) RDW-CV (test code = 14.5 % 12.1-15.4 788-0) PLT (test code = See_Comment H [Automated 777-3) message] The sy stem which generated this result transmitted reference range : 150 - 328 10*3/ ?L. The reference r torito was not used to interpret this result as normal/abnormal . MPV (test code = 8.0 fL 9.8-13 L 75345-7) NRBC/100 WBC (test See_Comment [Automat ed code = 6228607492) message] The system which generated this result transmitted reference range : 0.0 - 10.0 /100 WBCs. The refer ence range was not u sed to interpret th is result as normal/abnormal . NRBC x10^3 (test code <0.01 See_Comment [Auto mated = 3497446672) message] The s ystem which generated this result transmitted reference range : 10*3/?L. The reference range was not used to interpret this result as normal/abnormal . GRAN MAT (NEUT) % 69.1 % (test code = 770-8) IMM GRAN % (test code 2.20 % = 7843258503) LYMPH % (test code = 20.9 % 736-9) MONO % (test code = 5.8 % 5905-5) EOS % (test code = 1.0 % 713-8) BASO % (test code = 1.0 % 706-2) GRAN MAT x10^3(ANC) 6.51 10*3/uL 1.99-6.95 (test code = 9774458349) IMM GRAN x10^3 (test 0.21 10*3/uL 0-0.06 H code = 2250085701) LYMPH x10^3 (test code 1.97 10*3/uL 1.09-3.23 = 731-0) MONO x10^3 (test code 0.55 10*3/uL 0.36-1.02 = 742-7) EOS x10^3 (test code = 0.09 10*3/uL 0.06-0.53 711-2) BASO x10^3 (test code 0.09 10*3/uL 0.01-0.09 = 704-7) BASO STIPPLING (test Present A code = 703-9) BANDS (test code = Increased A 7132805559) TOXIC CHANGES (test Present A code = 803-7) Lab Interpretation Abnormal (test code = 06217-8) [facility] Metabolic Panel (NA, K, CL, CO2, GLUCOSE, BUN, CREATININE, CA)2020-08-22 11:12:00 Test Item Value Reference Range Interpretation Comments NA (test code = 135 mmol/L 135-145 9257845780) K (test code = 3.6 mmol/L 3.5-5 2207735910) CL (test code = 99 mmol/L 98-108 0801581175) CO2 TOTAL (test code = 31 mmol/L 23-31 6832271919) AGAP (test code = 2-16 5418477072) BUN (test code = 9 mg/dL 7-23 3647385456) GLUCOSE (test code = 198 mg/dL 70-110 H 2806780855) CREATININE (test code = 0.72 mg/dL 0.6-1.25 0176001348) CALCIUM (test code = 8.3 mg/dL 8.6-10.6 L 5993566240) eGFR Calculation mL/min/1.73m2 (Non-) (test code = 3323093357) eGFR Calculation mL/min/1.73m2 () (test code = 8332244864) JAMES (test code = JAMES) Association of [...] tests). Lab Interpretation Abnormal (test code = 38665-1) [facility] [id number] 11:12:00 Test Item Value Reference Range Interpretation Comments MAGNESIUM (test code = 3224979000) 2.0 mg/dL 1.7-2.4 Lab Interpretation (test code = Normal 03740-0) [facility]Total Cholesterol, Triglycerides, HDL) - Wrhoedf9077-50-69 11:12:00 Test Item Value Reference Range Interpretation Comments CHOL (test code = 155 mg/dL 120-200 1476358247) HDL (test code = 42 mg/dL >40 8593983242) HDLC RATIO (test code = See_Comment [Au tomated message] 2349223291) The system [employer] generated this result transmit ronan reference range : <=5.0. The refe rence range was not u sed to interpret th is result as normal/abnormal . TRIG (test code = 186 mg/dL 30-170 H 6570216514) LDL CHOL (test code = 76 mg/dL See_Comment [Auto mated message] 69673-7) The system [employer] generated this result transmit ronan reference range : <=160. The refe rence range was not u sed to interpret th is result as normal/abnormal . VLDL (test code = 37 mg/dL 5-60 8362180748) Lab Interpretation (test Abnormal code = 88284-3) [facility] AliceHEPAT[facility] (50535[facility] (ALB,T.PRO,BILI T,BU/BC,ALT,AST,ALK PHOS)2020-08-22 11:12:00 Test Item Value Reference Range Interpretation Comments TOTAL BILI (test code = 5793538095) 0.6 mg/dL 0.1-1.1 BILI UNCON (test code = 1121406935) 0.2 mg/dL 0.1-1.1 BILI CONJ (test code = 3777488566) 0.0 mg/dL 0-0.3 T PROTEIN (test code = 5517109952) 6.0 g/dL 6.3-8.2 L ALBUMIN (test code = 4021833269) 2.8 g/dL 3.5-5 L ALK PHOS (test code = 8578502325) 222 U/L 34-122 H ALTv (test code = 1742-6) 27 U/L 5-50 AST(SGOT) (test code = 8439820783) 30 U/L 13-40 Lab Interpretation (test code = Abnormal 48579-9) [facility]2020-08-22 10:11:00 Test Item Value Reference Range Interpretation Comments POCT GLU (test code = 6405769076) 196 mg/dL 70-110 H Lab Interpretation (test code = Abnormal 02634-8) [facility] GLUCOSE (AUTOMATED)2020-08-22 07:15:00 Test Item Value Reference Range Interpretation Comments POCT GLU (test code = 6422776484) 183 mg/dL 70-110 H Lab Interpretation (test code = Abnormal 63299-2) [facility] GLUCOSE (AUTOMATED)2020-08-22 02:30:00 Test Item Value Reference Range Interpretation Comments POCT GLU (test code = 4047478825) 295 mg/dL 70-110 H Lab Interpretation (test code = Abnormal 35038-2) [facility] GLUCOSE (AUTOMATED)2020-08-21 23:46:00 Test Item Value Reference Range Interpretation Comments POCT GLU (test code = 5444728269) 258 mg/dL 70-110 H Lab Interpretation (test code = Abnormal 76837-6) [facility] AliceC-REACTIVE [id number] 18:50:00 Test Item Value Reference Range Interpretation Comments CRP (test code = 5316288492) 15.5 mg/dL <0.8 H Lab Interpretation (test code = Abnormal 47407-4) [facility] GLUCOSE (AUTOMATED)2020-08-21 18:21:00 Test Item Value Reference Range Interpretation Comments POCT GLU (test code = 4717586992) 297 mg/dL 70-110 H Lab Interpretation (test code = Abnormal 21079-1) [facility] AliceETHANOL2020-[facility]-09 16:24:00 Test Item Value Reference Range Interpretation Comments ALCOHOL (test code = <10 mg/dL 6715619763) JAMES (test code = Toxic Greater than or JAMES) equal to 80 mg/dL. NOTE: Whole blood values are approximately 10% to 15% lower than serum and plasma. [facility]GAL[facility]CLC ONLY - URINE DRUG (IMMUNOASSAY) - 4 ER [id number] 15:36:00 Test Item Value Reference Range Interpretation Comments AMPHET (test code = Negative Negative 4037542336) Cocaine Metabolite (test Negative Negative code = 9324263823) OPIATES (test code = Presumptive Positive Negative A 5131846715) THC (test code = Negative Negative 8218343328) JAMES (test code = JAMES) Urine Drug Cutoff Ranges Amphetamine: ? 1,000 ng/mLCocaine: ? 150 ng/mLOpiates: ? 300 ng/mLCannabinoids: ?50 ng/mL The results are to be used only for medical (i.e., treatment) purposes. Unconfirmed screening results must not be used for non-medical purposes (e.g., employment testing, legal testing). Lab Interpretation (test Abnormal code = 46139-4) [facility] Alice[facility] ONLY - SYPHILIS [id number] 15:04:00 Test Item Value Reference Range Interpretation Comments Syphilis IgG/IgM (test Non-reactive Non-reactive code = 58298-5) JAMES (test code = JAMES) Non-reactive - No serologic evidence of T. pallidum infection. Cannot exclude incubating or early syphilis. Submit a second specimen in 2-4 weeks if syphilis is clinically suspected. Equivocal - Further testing to follow. Reactive - Further testing to follow. Lab Interpretation (test Normal code = 23472-5) [facility] AliceUrinalysis2020-[facility]-09 14:52:00 Test Item Value Reference Range Interpretation Comments APPEARANCE (test code = Clear Clear 7610955202) COLOR (test code = Yellow Yellow 0172933148) PH (test code = 4.8-8.0 4328149183) SP GRAVITY (test code = 1.003-1.030 2797443111) GLU U QUAL (test code = 500 mg/dL Normal A 1067278173) BLOOD (test code = Negative Negative 3885066840) KETONES (test code = 20 mg/dL Negative A 2126233297) PROTEIN (test code = Negative Negative 2887-8) UROBILIN (test code = Normal Normal 1426565193) BILIRUBIN (test code = Negative Negative 2559766407) NITRITE (test code = Negative Negative [id number]) LEUK RYAN (test code = Negative Negative 5468255158) RBC/HPF (test code = <1 See_Comment [Autom ated message] 1547336481) The system [employer] generated this result transmit ronan reference range : 0 - 3 HPF. The refe rence range was not u sed to interpret th is result as normal/abnormal . WBC/HPF (test code = See_Comment [Autom ated message] 4349429611) The system [employer] generated this result transmit ronan reference range : 0 - 5 HPF. The refe rence range was not u sed to interpret th is result as normal/abnormal . BACTERIA (test code = Negative Negative 8651896340) MUCOUS (test code = Slight Negative LPF A 2160577986) Lab Interpretation (test Abnormal code = 84668-4) [facility] [id number] 13:45:00 Test Item Value Reference Range Interpretation Comments APTT Patient (test code = See_Comment [ Automated message] 3173-2) The system [employer] generated this result transmitted ref erence range: 26 - 36 Seconds. The re ference range was not u sed to interpret this result as normal/abnor mal. Lab Interpretation (test Normal code = 80863-0) [facility]2020-08-21 13:45:00 Test Item Value Reference Range Interpretation Comments POCT GLU (test code = 1577779811) 246 mg/dL 70-110 H Lab Interpretation (test code = Abnormal 98903-9) [facility]HIV 1/2 AG-AB WITH [id number] 12:32:00 Test Item Value Reference Range Interpretation Comments HIV Negative Negative Semi-quantitative (test code = 69292-0) JAMES (test code = Non-reactive for HIV-1 JAMES) antigen and HIV-1/HIV-2 antibodies. ?No laboratory evidence of HIV infection. ?Repeat in 2-4 weeks if acute HIV infection is suspected. [facility] AliceCBC WITH [id number] 12:18:00 Test Item Value Reference Range Interpretation Comments WBC (test code = See_Comment [Automated 8912-2) message] The sy stem which generated this result transmitted reference range : 4.20 - 10.70 10*3/?L. The reference range was not used to interpret this result as normal/abnormal . RBC (test code = See_Comment [Automated 479-5) message] The sy stem which generated this [...] RDW-SD (test code = 44.4 fL 38.5-51.6 55159-9) RDW-CV (test code = 14.5 % 12.1-15.4 788-0) PLT (test code = See_Comment H [Automated 777-3) message] The sy stem which generated this result transmitted reference range : 150 - 328 10*3/ ?L. The reference r torito was not used to interpret this result as normal/abnormal . MPV (test code = 8.5 fL 9.8-13 L 42829-8) NRBC/100 WBC (test See_Comment [Automat ed code = 6167494810) message] The system which generated this result transmitted reference range : 0.0 - 10.0 /100 WBCs. The refer ence range was not u sed to interpret th is result as normal/abnormal . NRBC x10^3 (test code <0.01 See_Comment [Auto mated = 1988043311) message] The s ystem which generated this result transmitted reference range : 10*3/?L. The reference range was not used to interpret this result as normal/abnormal . GRAN MAT (NEUT) % 90.4 % (test code = 770-8) IMM GRAN % (test code 1.30 % = 7394710005) LYMPH % (test code = 7.1 % 736-9) MONO % (test code = 0.5 % 5905-5) EOS % (test code = 0.1 % 713-8) BASO % (test code = 0.6 % 706-2) GRAN MAT x10^3(ANC) 7.74 10*3/uL 1.99-6.95 H (test code = 4937569777) IMM GRAN x10^3 (test 0.11 10*3/uL 0-0.06 H code = 4078535283) LYMPH x10^3 (test code 0.61 10*3/uL 1.09-3.23 L = 731-0) MONO x10^3 (test code 0.04 10*3/uL 0.36-1.02 L = 742-7) EOS x10^3 (test code = <0.03 0.06-0.53 L 711-2) BASO x10^3 (test code 0.05 10*3/uL 0.01-0.09 = 704-7) POLYCHROMASIA (test 2+ See_Comment [Automa ronan code = 50245-4) message] The system which generated this result transmitted reference range : 2+. The referen ce range was not u sed to interpret th is result as normal/abnormal . BANDS (test code = Increased A 5019102245) Lab Interpretation Abnormal (test code = 96455-8) [facility]AL[facility]ONIN2020-[facility]-09 11:48:00 Test Item Value Reference Range Interpretation Comments Procalcitonin (test 0.36 ng/mL <0.07 H code = 8323945252) JAMES (test code = JAMES) INTERPRETATION OF [...] lung abscess/empyema. For further information please refer to:[email or web address] Lab Interpretation Abnormal (test code = 30966-3) [facility] AliceLACTATE [id number] 10:53:00 Test Item Value Reference Range Interpretation Comments LDH (test code = 7680370857) 351 U/L 300-600 Lab Interpretation (test code = Normal 25334-4) [facility] AliceSEDIMENTATION [id number] 10:07:00 Test Item Value Reference Range Interpretation Comments ESR (test code = See_Comment H [Automated message] 0297208512) The system [employer] generated this result transmitted ref erence range: 0 - 10 m m/HR. The reference r torito was not used to interpret this result as normal/abnor mal. Lab Interpretation (test Abnormal code = 10166-4) [facility]2020-08-21 09:45:00 Test Item Value Reference Range Interpretation Comments POCT GLU (test code = 6206417847) 287 mg/dL 70-110 H Lab Interpretation (test code = Abnormal 54751-3) [facility] AliceGlycosylated Hemoglobin (A1C)2020-08-21 09:29:00 Test Item Value Reference Range Interpretation Comments HGB A1C (test code = 4548-4) 9.8 % 4-6 H Lab Interpretation (test code = Abnormal 01206-1) [facility] AliceCOVID-19 (ID NOW RAPID TESTING)2020-08-21 09:13:00 Test Item Value Reference Range Interpretation Comments SARS-CoV-2 Rapid ID NOW Not Detected Not Detected (test code = 91066-9) JAMES (test code = JAMES) ID NOW COVID-19 Assay is an isothermal nucleic acid amplification test intended for the qualitative detection of nucleic acid from SARS-CoV-2 viral RNA in nasopharyngeal ([employer]) specimens. It is used under Emergency Use [...] indicated. Lab Interpretation Normal (test code = 78991-5) [facility] AliceProthrombin Time / [id number] 08:59:00 Test Item Value Reference Range Interpretation Comments PROTIME PATIENT (test See_Comment H [Auto mated message] code = 5964-2) The system [employer] generated this result transmitted ref erence range: 10.1 - 1 2.6 Seconds. The reference range was not used to int erpret this result as normal/abnormal . INR (test code = 6301-6) Nor mal INR <1.1; Warfarin Therap eutic range 2.0 to 3. 0 or 2.5 to 3.5, dep ending upon the indica tions. Lab Interpretation (test Abnormal code = 88649-5) [facility] AliceaPTT2020-11-09 08:59:00 Test Item Value Reference Range Interpretation Comments APTT Patient (test code = See_Comment [ Automated message] 3173-2) The system [employer] generated this result transmitted ref erence range: 26 - 36 Seconds. The re ference range was not u sed to interpret this result as normal/abnor mal. Lab Interpretation (test Normal code = 17827-9) [facility] (NA, K, CL, CO2, GLUCOSE, BUN, CREATININE, CA)2020-08-21 08:52:00 Test Item Value Reference Range Interpretation Comments NA (test code = 136 mmol/L 135-145 7490788557) K (test code = 4.3 mmol/L 3.5-5 1472667734) CL (test code = 104 mmol/L 98-108 4976219838) CO2 TOTAL (test code = 24 mmol/L 23-31 3959459085) AGAP (test code = 2-16 1608214426) BUN (test code = 8 mg/dL 7-23 7546633543) GLUCOSE (test code = 308 mg/dL 70-110 H 4361184885) CREATININE (test code = 0.72 mg/dL 0.6-1.25 6134295755) CALCIUM (test code = 7.8 mg/dL 8.6-10.6 L 1740153945) eGFR Calculation mL/min/1.73m2 (Non-) (test code = 4704640712) eGFR Calculation mL/min/1.73m2 () (test code = 6509868081) JAMES (test code = JAMES) Association of [...] tests). Lab Interpretation Abnormal (test code = 10669-4) [facility] AliceHEPATIC FUNCTION PANEL (88091) (ALB,T.PRO,BILI T,BU/BC,ALT,AST,ALK PHOS)2020-08-21 08:52:00 Test Item Value Reference Range Interpretation Comments TOTAL BILI (test code = 5054874685) 0.8 mg/dL 0.1-1.1 BILI UNCON (test code = 6667683407) 0.3 mg/dL 0.1-1.1 BILI CONJ (test code = 3356790564) 0.0 mg/dL 0-0.3 T PROTEIN (test code = 4405039788) 5.7 g/dL 6.3-8.2 L ALBUMIN (test code = 4514829247) 2.7 g/dL 3.5-5 L ALK PHOS (test code = 9448643461) 245 U/L 34-122 H ALTv (test code = 1742-6) 37 U/L 5-50 AST(SGOT) (test code = 9309534576) 43 U/L 13-40 H Lab Interpretation (test code = Abnormal 61537-3) [facility]
[2023-02-10] MEDS ORDERED: CYCLOBENZAPRINE 10 MG TAB ONE (17:32)
[2023-02-10] MEDS ORDERED: KETAMINE HCL IN 0.9 % NACL 50 MG/5 ML SYRINGE IV ONE (17:40)
--- NOTE | 2023-02-10 17:43 | ER ---
[facility] Name: Kiel Ngo Age: 72 yrs Sex: Male : 1950 Arrival Date: 02/10/2023 Time: 17:08 Bed 12 Private MD: Diagnosis: Other chronic pain Presentation: 02/10 17:12 Chief complaint: EMS states: RIGHT hip pain that radiates to knee and back. States has db chronic pain x 1 year but today pain is worse. Denies recent injury. Coronavirus screen: Vaccine status: Patient reports being unvaccinated. Client denies travel out of the [place] in the last 14 days. At this time, the client does not indicate any symptoms associated with coronavirus-19. Ebola Screen: Patient negative for fever greater than or equal to 101.5 degrees Fahrenheit, and additional compatible Ebola Virus Disease symptoms Patient denies exposure to infectious person. Patient denies travel to an Ebola-affected area in the 21 days before illness onset. No symptoms or risks identified at this time. Initial Sepsis Screen: Does the patient meet any 2 criteria? HR > 90 bpm. Yes Does the patient have a suspected source of infection? No. Patient's initial sepsis screen is negative. Risk Assessment: Do you want to hurt yourself or someone else? Patient reports no desire to harm self or others. Onset of symptoms was February 10, 2023. 17:12 Method Of Arrival: EMS: [facility] db 17:12 Acuity: JOZEF 3 db Triage Assessment: 17:15 General: Appears in no apparent distress. comfortable, Behavior is calm, cooperative. db Pain: Complains of pain in back, right hip and right knee. Historical: - Allergies: 17:14 Demerol; db 17:14 metformin; db 17:14 Morphine; db - Home Meds: 17:14 hydromorphone 4 mg Oral tab 1 tab three times a day [Active]; Hydroxyzine Oral db [Active]; Klonopin 2 mg Oral TbDi 2 tabs 4 times a day [Active]; - PMHx: 17:14 Atrial fibrillation; chronic back pain; Chronic right leg pain; neuropathy; db - PSHx: 17:14 back sx; PANCREAS SX; R. Ankle SX; db - Immunization history:: Adult Immunizations unknown. - Social history:: Smoking status: Patient denies any tobacco usage or history of. Screenin:15 [facility] ED Fall Risk Assessment (Adult) History of falling in the last 3 months, db including since admission No falls in past 3 months (0 pts) Confusion or Disorientation No (0 pts) Intoxicated or Sedated No (0 pts) Impaired Gait No (0 pts) Mobility Assist Device Used No (0 pt) Altered Elimination No (0 pt) Score/Fall Risk Level 0 - 2 = Low Risk Oriented to surroundings, Maintained a safe environment. Abuse screen: Denies threats or abuse. Denies injuries from another. Nutritional screening: No deficits noted. Tuberculosis screening: No symptoms or risk factors identified. Assessment: 17:15 Reassessment: Patient appears in no apparent distress at this time. Patient and/or db family updated on plan of care and expected duration. Pain level reassessed. Patient is alert, oriented x 3, equal unlabored respirations, skin warm/dry/pink. see triage assessment. 17:55 Reassessment: patient is discharged. Contacting [facility] for patient ride back home. 17:55 Reassessment: Patient appears in no apparent distress at this time. Patient and/or db family updated on plan of care and expected duration. Pain level reassessed. Patient is alert, oriented x 3, equal unlabored respirations, skin warm/dry/pink. General: Appears in no apparent distress. comfortable, Behavior is calm, cooperative. Pain: Pain currently is 4 out of 10 on a pain scale. Neuro: Level of Consciousness is awake, alert, obeys commands, Oriented to person, place, time, situation. Respiratory: Airway is patent Respiratory effort is even, unlabored, Respiratory pattern is regular, symmetrical. 18:19 Reassessment: EMS arrived for patient. Patient report given to EMS. Patient stable in db NAD. Patient provided DC instructions. Vital Signs: 17:12 BP 160 / 92; Pulse 110; Resp 18; Temp 98.6(O); Pulse Ox 98% on R/A; Weight 83.91 kg; db Height 5 ft. 11 in. ; Pain 10/10; 17:57 BP 186 / 99; Pulse 109; Resp 16; Pulse Ox 98% on R/A; db 17:12 Body Mass Index 25.80 (83.91 kg, 180.34 cm) 17:12 Pain Scale: Adult db ED Course: 17:12 Patient arrived in ED. db 17:13 Kirby Short [facility] 17:13 Stu Banerjee MD is Attending Physician. m 17:14 Triage completed. db 17:15 Arm band placed on Patient placed in an exam room. db 17:19 Graciela Gentile, RN is Primary Nurse. db 17:56 Awaiting transportation. db 17:56 Patient has correct armband on for positive identification. Pulse ox on. NIBP on. Warm db blanket given. 17:56 No provider procedures requiring assistance completed. Patient did not have IV access db during this emergency room visit. Administered Medications: 17:37 Drug: Ketamine IM 20 mg Route: IM; Site: right deltoid; db 17:57 Follow up: Response: No adverse reaction db 17:37 Drug: Cyclobenzaprine PO 10 mg Route: PO; db 17:57 Follow up: Response: No adverse reaction db Medication: 17:57 VIS not applicable for this client. db Outcome: 17:42 Discharge ordered by . m 17:56 Discharged to home via ambulance. db 17:56 Condition: stable 17:56 Discharge instructions given to patient, Instructed on discharge instructions, Prescriptions given X 1. 18:19 Patient left the ED. db Signatures: Kirby Short PA PA jmm Benton, Danielle, RN RN db
--- NOTE | 2023-02-10 17:43 | EDPHYS ---
Physician Documentation [facility] Name: Kiel Ngo Age: 72 yrs Sex: Male : 1950 Arrival Date: 02/10/2023 Time: 17:08 Bed 12 Private MD: ED Physician Stu Banerjee HPI: 02/10 17:17 This 72 yrs old Male presents to ER via EMS with complaints of Hip Pain. jmm 19:20 This is a 72/m with a history of chronic back and hip pain that presents to the ED with jmm complaints of ongoing chronic pain. Denies new injury. Denies new character of pain. . Historical: - Allergies: 17:14 Demerol; db 17:14 metformin; db 17:14 Morphine; db - Home Meds: 17:14 hydromorphone 4 mg Oral tab 1 tab three times a day [Active]; Hydroxyzine Oral db [Active]; Klonopin 2 mg Oral TbDi 2 tabs 4 times a day [Active]; - PMHx: 17:14 Atrial fibrillation; chronic back pain; Chronic right leg pain; neuropathy; db - PSHx: 17:14 back sx; PANCREAS SX; R. Ankle SX; db - Immunization history:: Adult Immunizations unknown. - Social history:: Smoking status: Patient denies any tobacco usage or history of. ROS: 19:20 Constitutional: Negative for fever, chills, and weight loss, Cardiovascular: Negative jmm for chest pain, palpitations, and edema, Respiratory: Negative for shortness of breath, cough, wheezing, and pleuritic chest pain. 19:20 Back: Positive for pain with movement. 19:20 MS/extremity: Positive for pain. 19:20 All other systems are negative. Exam: 19:20 Constitutional: This is a well developed, well nourished patient who is awake, alert, jmm and in no acute distress. Head/Face: atraumatic. Eyes: EOMI, no conjunctival erythema appreciated ENT: Moist Mucus Membranes Neck: Trachea midline, Supple Chest/axilla: Normal chest wall appearance and motion. Cardiovascular: Regular rate and rhythm. No edema appreciated Respiratory: Normal respirations, no respiratory distress appreciated Abdomen/GI: Non distended Back: Normal ROM Skin: General appearance color normal 19:20 Musculoskeletal/extremity: no edema appreciated. 19:20 Skin: Appearance: Color: normal in color. 19:20 Neuro: Orientation: is normal, Mentation: is normal, Memory: is normal. 19:20 Psych: Behavior/mood is pleasant, cooperative. Vital Signs: 17:12 BP 160 / 92; Pulse 110; Resp 18; Temp 98.6(O); Pulse Ox 98% on R/A; Weight 83.91 kg; db Height 5 ft. 11 in. ; Pain 10/10; 17:57 BP 186 / 99; Pulse 109; Resp 16; Pulse Ox 98% on R/A; db 17:12 Body Mass Index 25.80 (83.91 kg, 180.34 cm) db 17:12 Pain Scale: Adult db MDM: 17:17 Patient medically screened. [facility] 19:22 Differential diagnosis: chronic pain. Data reviewed: vital signs, nurses notes. jmm Counseling: I had a detailed discussion with the patient and/or guardian regarding: the historical points, exam findings, and any diagnostic results supporting the discharge/admit diagnosis, the need for outpatient follow up, to return to the emergency department if symptoms worsen or persist or if there are any questions or concerns that arise at home. Administered Medications: 17:37 Drug: Ketamine IM 20 mg Route: IM; Site: right deltoid; db 17:57 Follow up: Response: No adverse reaction db 17:37 Drug: Cyclobenzaprine PO 10 mg Route: PO; db 17:57 Follow up: Response: No adverse reaction db Disposition Summary: 02/10/23 17:42 Discharge Ordered Location: Home [facility] Condition: Stable [facility] Diagnosis - Other chronic pain [facility] Followup: [facility] - With: Private Physician - When: 2 - 3 days - Reason: Recheck today's complaints, Continuance of care, Re-evaluation by your physician Discharge Instructions: - Discharge Summary Sheet [facility] - Chronic Pain, Adult [facility] Forms: - Medication Reconciliation Form [facility] - Thank You Letter [facility] - Antibiotic Education [facility] - Prescription Opioid Use [facility] Prescriptions: - Zanaflex 4 mg Oral Tablet - take 1 tablet by ORAL route every 8 hours As needed; 20 tablet; Refills: 0, jm Product Selection Permitted Signatures: Kirby Short PA PA jmm Benton, Danielle, RN RN db
[2023-02-10 19:15] VITALS: TEMP 98.6; O2SAT 98
[2023-02-10 19:16] VITALS: BP 186/99
== END 2023-02-10 18:19 | disposition home or self-care (01) ==
LOC: ER 17:08
DX: G89.29 Other chronic pain (principal); Z88.5 Allergy status to narcotic agent; Z88.8 Allergy status to other drugs, medicaments and biological substances
CPT/HCPCS: 96372; 99284

== ENCOUNTER 2023-03-14 02:36 | Emergency (ER) | payer OTHER ==
--- OUTSIDE RECORDS SUMMARY | 2023-03-14 02:43 | XMS REPORT | Continuity of Care Document ---
:1950 Author Organization [facility] t Address [address] [facility] [address] [place] [address] Care Team Providers Name Role Phone CALVIN WORLEY Primary Care Physician Unavailable [id number] Attending Clinician Unavailable KELLY WASHINGTON Attending Clinician [...] PACO LACEY Attending Clinician Unavailable Doctor Unassigned, Guadalupe Attending Clinician Unavailable Wilder VILLAREAL, Angi K.H. Attending Clinician Jl Mccabe MD Attending Clinician Kelly Washington MD Attending Clinician [phone] Mukul Gallardo MD Attending Clinician [id number] Admitting Clinician Unavailable MUKUL GALLARDO Admitting Clinician Unavailable Angle Mathew, Anav Admitting Clinician Unavailable Hunter VILLAREAL, Vika G Admitting Clinician VIKA HARRISON Admitting Clinician Unavailable Mukul Gallardo MD Admitting Clinician Payers Payer Name Policy Type Policy Number Effective Date Expiration Date [place] MEDICARE PART A [id number] 2007 \\T\\ B 00:00:00 [employer] INDEMNITY [id number] 2016 00:00:00 MCR MCR [id number] MEDICARE PART A [id number] 2014 \\T\\ B - MEDICARE 00:00:00 INDEMNITY/TRADITIO [id number] NAL CHOICE - [employer] 00:00:00 Problems Condition Condition Condition Status Onset Resolution Last Treating Co mments Source Name Details Category Date Date Treatment Clinician Date Elevated Elevated Disease Active 2020-0 Unive rs LFTs LFTs 2-05 ity of 00:00: [place] 00 Medical Branch Abnormal Abnormal Disease Active 2020-0 Unive rs CXR CXR 2-05 ity of 00:00: Medical Branch Elevated Elevated Disease Active 2020-0 Unive rs LFTs LFTs 2-05 ity of 00:00: 00 Medical Branch Cellulitis Cellulitis Disease Active 2020-0 U nivers 2-04 ity of 00:00: [place] 00 Medical Branch Rash Rash Disease Active 2019- Univers 1-09 ity of 00:00: 00 Medical Branch Allergies, Adverse Reactions, Alerts Allergy Allergy Status Severity Reaction(s) Onset Inactive Treating Comm ents Source Name Type Date Date Clinician Elmore Propensi Active Rash 2019- Univers ty to 1-10 ity of adverse 00:00: [place] reaction 00 Medical s Branch PEACH DRUG Active Rash 2019- Univers INGREDI 1-10 ity of 00:00: 00 Medical Branch Lidocain Drug Active Itching 2019-10 Univers e Allergy -09 ity of 00:00: [place] 00 Medical Branch LIDOCAIN DRUG Active ITCHING [...] Quantity Comments Source Exposure to Not sure [place] of SARS-CoV-2 [place] Medical (event) Branch History of Chews Tobacco University of tobacco use [place] [facility] History SDOH 2020-11-17 2020-11-17 5 University o f Financial 00:00:00 00:00:00 [place] [facility] History SDOH Food 2020-11-17 2020-11-17 1 Univers ity of Worry 00:00:00 00:00:00 [place] [facility] History SDOH Food 2020-11-17 2020-11-17 1 Univers ity of Scarcity 00:00:00 00:00:00 [place] [facility] History SDOH 2020-11-17 2020-11-17 1 University o f Transport Med 00:00:00 00:00:00 [place] Medic al Branch History SDOH 2020-11-17 2020-11-17 1 University o f Transport Non-Med 00:00:00 00:00:00 [place] M edical Branch Education 2020-11-16 2020-11-16 21 [facility] of 00:00:00 00:00:00 [facility] Branch Alcohol intake 2020-11-16 2020-11-16 Ex-drinker [facility] of 00:00:00 00:00:00 (finding) [facility] Tobacco use and 2020-08-21 2020-08-21 Former user Universi ty of exposure 00:00:00 00:00:00 [facility] Tobacco Comment 2020-08-21 2020-08-21 quit 10 years Univer sity of 00:00:00 00:00:00 ago, started in [place] Med ica 2nd year of [facility] (~40 years) Alcohol Comment 2020-08-21 2020-08-21 Used to have 2-3 Uni versity of 00:00:00 00:00:00 six-packs of [place] Medica l beer daily x 20 Branch years, quit 2005 History [facility] 2020-08-21 2020-08-21 99 University o f Alcohol Frequency 00:00:00 00:00:00 [place] M edical Branch History [facility] 2020-08-21 2020-08-21 99 University o f Alcohol Std 00:00:00 00:00:00 [place] Medical Drinks Branch History [facility] 2020-08-21 2020-08-21 99 University o f Alcohol Binge 00:00:00 00:00:00 [facility] Sex [birth year] At [birth year] Universit y of 00:00:00 00:00:00 [facility] Smoking Status Start Date Stop Date Source Never smoker [facility] Medications Ordered Filled Start Stop Current [...] by ity of tablet 22:47: mouth at [place] 18 bedtime. Medical Branch HYDROmorpho 2020-0 Yes [...] by ity of tablet 22:47: mouth at [place] 18 bedtime. Medical Branch HYDROmorpho 2020-0 Yes [...] by ity of tablet 16:47: mouth at [place] 18 bedtime. Medical Branch HYDROmorpho 2020-0 Yes [...] Until Discontinu ed, Routine amLODIPine 0 Yes [id number] 10mg Take 1 Univers 10 mg 3-07 tablet by ity of tablet 00:00: mouth [place] 00 daily. Medical Branch clotrimazol 2020-0 Yes [id number] Apply to Univers e 1 % 3-07 face/ears, ity of topical 00:00: armpits, [place] cream 00 pannus and Medical back/any Branch other rash twice a day fluocinonid 2020-0 Yes [id number] Apply to Univers e 0.05 % 3-07 scalp ity of solution 00:00: twice a [place] 00 day Medical Branch triamcinolo 2020-0 Yes [id number] Apply to Univers ne 3-07 back, ity of acetonide 00:00: armpits [place] 0.1 % cream 00 and other Med ical affected Branch areas twice daily, please mix with clotrimazo le hydrOXYzine 2020-0 Yes [id number] 10mg Take 1 Univers 10 mg 3-07 tablet by ity of tablet 00:00: mouth 2 00 (two) Medical times Branch daily. amLODIPine 2020-0 Yes [id number] 10mg Take 1 Univers 10 mg 3-07 tablet by ity of tablet 00:00: mouth [place] 00 daily. Medical Branch clotrimazol 2020-0 Yes [id number] Apply to Univers e 1 % 3-07 face/ears, ity of topical 00:00: armpits, [place] cream 00 pannus and Medical back/any Branch other rash twice a day fluocinonid 2020-0 Yes [id number] Apply to Univers e 0.05 % 3-07 scalp ity of solution 00:00: twice a [place] 00 day Medical Branch triamcinolo 2020-0 Yes [id number] Apply to Univers ne 3-07 back, ity of acetonide 00:00: armpits [place] 0.1 % cream 00 and other Med ical affected Branch areas twice daily, please mix with clotrimazo le hydrOXYzine 2020-0 Yes [id number] 10mg Take 1 Univers 10 mg 3-07 tablet by ity of tablet 00:00: mouth 2 [place] 00 (two) Medical times Branch daily. amLODIPine 2020-0 Yes [id number] 10mg Take 1 Univers 10 mg 3-07 tablet by ity of tablet 00:00: mouth [place] 00 daily. Medical Branch clotrimazol 2020-0 Yes [id number] Apply to Univers e 1 % 3-07 face/ears, ity of topical 00:00: armpits, [place] cream 00 pannus and Medical back/any Branch other rash twice a day fluocinonid 2020-0 Yes [id number] Apply to Univers e 0.05 % 3-07 scalp ity of solution 00:00: twice a day Medical Branch triamcinolo 0 Yes [id number] Apply to Univers ne 3-07 back, ity of acetonide 00:00: armpits [place] 0.1 % cream 00 and other Med ical affected Branch areas twice daily, please mix with clotrimazo le hydrOXYzine Yes [id number] 10mg Take 1 Univers 10 mg 3- tablet by ity of tablet 00:00: mouth 2 (two) Medical times Branch daily. amLODIPine Yes [id number] 10mg Take 1 Univers 10 mg 3-07 tablet by ity of tablet 00:00: mouth 00 daily. Medical Branch clotrimazol 0 Yes [id number] Apply to Univers e 1 % 3-07 face/ears, ity of topical 00:00: armpits, [place] cream 00 pannus and Medical back/any Branch other rash twice a day fluocinonid 2020-0 Yes [id number] Apply to Univers e 0.05 % 3-07 scalp ity of solution 00:00: twice a day Medical Branch triamcinolo 0 Yes [id number] Apply to Univers ne 3-07 back, ity of acetonide 00:00: armpits [place] 0.1 % cream 00 and other Med ical affected Branch areas twice daily, please mix with clotrimazo le hydrOXYzine Yes [id number] 10mg Take 1 Univers 10 mg 3-07 tablet by ity of tablet 00:00: mouth 2 00 (two) Medical times Branch daily. cephALEXin 2020-2020- No [id number] 500mg Take 1 Univers 500 mg 12-17- capsule by ity of capsule 00:00: 05:59 mouth [place] 00 :00 every 6 Medical (six) Branch hours for 3 days. cephALEXin 2020-2020- No [id number] 500mg Take 1 Univers 500 mg 12-17 capsule by ity of capsule 00:00: 05:59 mouth [place] 00 :00 every 6 Medical (six) Branch hours for 3 days. hydrOXYzine 2020- No [id number] 10mg Take 1 Univers 10 mg 12-17 [...] 1,000 mL 00 :00 IV Medical Infusion, [place] ONCE, 1 dose, 12/15/20 at 1900, Routine [...] days NaCl 0.9% No 500mL at [address] [facility] ers (NS) bolus 12-15-05 mL/hr, [...] Until Discontinu ed, Routine amLODIPine 2020- No [id number] 10mg Take 1 Univers 10 mg 12-15-07 tablet by ity of tablet 00:00: 00:00 mouth [place] 00 :00 daily. Medical Branch HYDROmorpho 2020- No 1mg 1 mg, Univ ers ne 3 03-05 Oral, ity of (DILAUDID) 17:35: 15:18 Q6HPRN, [place] tablet 1 mg 30 :06 Starting Medi [facility] 12/14/20 Branch at 1135, Until Fri12/15/20 at 0918, Routine, Pain (scale 7-10) hydrOXYzine Yes 10mg 10 mg, Univ ers (ATARAX) 304 Oral, BID, ity o f tablet 10 17:30: First dose [place] mg 00 on [facility] Medical 12/14/20 at Branch 1130, Until Discontinu ed, Routine lisinopriL Yes 5mg 5 mg, Univer s (PRINIVIL,Z 12-14 Oral, ity of ESTRIL) 17:30: DAILY, [place] tablet 5 mg 00 First dose Me dical on Katelyn Branch 12/14/20 at 1130, Until Discontinu ed, Routine triamcinolo 2020- No [id number] Apply to Univers ne 12-14 back, ity of acetonide 00:00: 00:00 armpits [place] 0.1 % cream 00 :00 and other Med ical affected Branch areas twice daily, please mix with clotrimazo le clotrimazol 2020- No [id number] Apply to Univers e 1 % 12-14 face/ears, ity of topical 00:00: 00:00 armpits, [place] cream 00 :00 pannus and Medical back/any Branch other rash twice a day fluocinonid 2020- No [id number] Apply to Univers e 0.05 % 12-14 scalp ity of solution 00:00: 00:00 twice a [place] 00 :00 day Medical Branch hydrOXYzine 2020- No [id number] 10mg Take 1 Univers 10 mg 12-14 [...] 1 [place] mg 00 :00 dose, [facility] 12/12/20 at Branch 2145, Routine [...] 1 [place] mg 00 :00 dose, [facility] 12/12/20 at Branch 0215, Routine [...] dose [place] capsule 300 00 on [facility] Medica l mg 12/11/20 at Branch 2100, Until Discontinu ed, Routine fluocinonid 0 Yes Topical, Un toi e (LIDEX) 3 BID, First ity of 0.05 % 02:00: dose on [place] solution 00 Fri12/11/20 Medic al at 2000, Branch Until Discontinu ed, Routine acetaminoph 2020- No 1{tbl} 1 tablet, Univers en-codeine 12-11 03-05 Oral, ity of (TYLENOL 23:23: 13:49 Q6HPRN, [place] #3) 300-30 43 :08 Starting Medic al mg tablet 1 Fri12/11/20 Br anch tablet at 1723, Until Fri12/15/20 at 0749, Routine, Pain (scale 4-6) enoxaparin 0 Yes 40mg 40 mg, Unive rs (LOVENOX) 12-11 Subcutaneo ity of injection 23:00: us, DAILY, [place] 40 mg 00 First dose Medical on Fri [place] 12/11/20 at 1700, Until Discontinu ed, Routine clotrimazol 0 Yes Topical, Un toi e 3- BID, First ity of (LOTRIMIN) 19:15: dose on [place] 1 % topical Fri12/11/20 Me dical cream at 1315, Branch Until Discontinu ed, Routine hydrocortis 0 Yes Topical Uni vers one 2.5 % 12-11 (Apply To ity o f cream 19:15: Affected [place] 00 Areas), Medical BID, First Branch dose on Fri12/11/20 at 1315, Until Discontinu ed, Routine triamcinolo Yes Topical, Un toi ne 12-11 BID, First ity of acetonide 19:00: dose [place] (TRIDERM) 00 (after Medical 0.1 % cream last Branch modificati on) on Fri12/11/20 at 1300, Until Discontinu ed, Routine ceFAZolin 2020- No 1000mg 1,000 mg, [facility] (ANCEF) 12-11 03-05 IV ity of 1,000 mg in 19:00: 17:35 Piggyback, [place] NaCl 0.9% 00 :26 Q8H ABX, Medica l (NS) 50 mL First dose Bra nch MINI-BAG on Fri12/11/20 at 1300, Until Discontinu ed, 50 mL
R jose armando for Anti-Infec tive: Documented Infection< br>Documen ronan Infection Site: Skin / Soft Tissue
Duration of Therapy: [address] [facility] ers Scale 12-11 us, TID ity of Insulin - 18:00: MEALS+HS, [place] as Lispro 00 First dose Medical (HumaLOG) + on Fri Branch Fsbg 12/11/20 at Testing 1200, Until Discontinu ed, Routine insulin Yes 5U 5 Units, [facility] s lispro 12-11 Subcutaneo ity of (human) 18:00: us, TID [place] (HumaLOG 00 MEALS, Medical U-100) First dose Branch injection 5 on Fri Units 12/11/20 at 1200, Until Discontinu ed Polyethylen Yes 17g 17 g, [facility] rs e Glycol 12-11 Oral, ity of 3350 17:47: D86HQAQ, [place] (MIRALAX) 05 Starting Medica l powder 17 g Fri12/11/20 Br anch at 1147, Until Discontinu ed, Routine, Constipati on acetaminoph Yes 650mg 650 mg, Un toi en 12-11 Oral, ity of (TYLENOL) 16:51: Q6HPRN, [place] tablet 650 28 Starting Medic al mg 12/11/20 Branch at 1051, Until Discontinu ed, Routine, Pain (scale 1-3) FENTanyl PF 2020- No 75ug 75 mcg, Un toi (SUBLIMAZE 12-11 Slow IV ity o f (PF)) 15:00: 13:53 Push, [place] injection 00 :00 ONCE, 1 Medical 75 mcg dose, [facility] Branch 12/11/20 at 0900, Routine vancomycin 2020- [...] piperacilli 2020- No 3.375g 3.375 g, [facility] n-tazobacta 12-11 IV ity of m (ZOSYN) 12:00: 17:48 Piggyback, [place] injection 00 :24 Q6H, First Medi jose c 3.375 g dose on Branch [facility] 12/11/20 at 0600, Until Discontinu ed, KAHLIL
Re ason for Anti-Infec tive: Empiric Therapy for Suspected Infection< br>Empiric Therapy Site: Skin / Soft tissue
Duration of therapy: 72 hours sennosides- Yes [id number] 1{tbl} Take 1 Univers docusate 2-09 tablet by ity of sodium 00:00: mouth 2 [place] 8.6-50 mg 00 (two) Medical per tablet times Branch daily. hydrocortis Yes [id number] Apply to [facility] one 2.5 % 2-09 affected ity of cream 00:00: area(s) 2 [place] 00 (two) Medical times Branch daily. blood sugar 2020-0 Yes [id number] Use to [facility] diagnostic 11-21 check ity of (FREESTYLE 00:00: blood [place] LITE 00 glucose Medical STRIPS) 4-5 times Branch strip daily. Polyethylen 2020-0 Yes [id number] 17g Take 1 Univers e Glycol 2-09 Packet by ity of 3350 17 00:00: mouth [place] gram powder 00 every 24 Medi jose c (twenty-fo Branch ur) hours as needed for Constipati on. sennosides- 2020- Yes [id number] 1{tbl} Take 1 Univers docusate 2-09 tablet by ity of sodium 00:00: mouth 2 [place] 8.6-50 mg 00 (two) Medical per tablet times Branch daily. hydrocortis 2020-0 Yes [id number] Apply to Univers one 2.5 % 2-09 affected ity of cream 00:00: area(s) 2 [place] 00 (two) Medical times Branch daily. blood sugar 2020-0 Yes [id number] Use to [facility] diagnostic 11-21 check ity of (FREESTYLE 00:00: blood [place] LITE 00 glucose Medical STRIPS) 4-5 times Branch strip daily. Polyethylen 2020-0 Yes [id number] 17g Take 1 Univers e Glycol 2-09 Packet by ity of 3350 17 00:00: mouth [place] gram powder 00 every 24 Medi jose c (twenty-fo Branch ur) hours as needed for Constipati on. sennosides- 2020-0 Yes [id number] 1{tbl} Take 1 Univers docusate 2-09 tablet by ity of sodium 00:00: mouth 2 [place] 8.6-50 mg 00 (two) Medical per tablet times Branch daily. hydrocortis 2020-0 Yes [id number] Apply to Univers one 2.5 % 2-09 affected ity of cream 00:00: area(s) 2 [place] 00 (two) Medical times Branch daily. blood sugar 2020-0 Yes [id number] Use to [facility] diagnostic 11-21 check ity of (FREESTYLE 00:00: blood [place] LITE 00 glucose Medical STRIPS) 4-5 times Branch strip daily. Polyethylen 2020-0 Yes [id number] 17g Take 1 Univers e Glycol 2-09 Packet by ity of 3350 17 00:00: mouth [place] gram powder 00 every 24 Medi jose c (twenty-fo Branch ur) hours as needed for Constipati on. sennosides- Yes [id number] 1{tbl} Take 1 Univers docusate 11-21 tablet by ity of sodium 00:00: mouth 2 [place] 8.6-50 mg 00 (two) Medical per tablet times Branch daily. hydrocortis Yes [id number] Apply to [facility] one 2.5 % 11-21 affected ity of cream 00:00: area(s) 2 [place] 00 (two) Medical times Branch daily. blood sugar Yes [id number] Use to [facility] diagnostic 11-21 check ity of (FREESTYLE 00:00: blood [place] LITE 00 glucose Medical STRIPS) 4-5 times Branch strip daily. Polyethylen Yes [id number] 17g Take 1 Univers e Glycol - Packet by ity of 3350 17 00:00: mouth [place] gram powder 00 every 24 Medi jose c (twenty-fo Branch ur) hours as needed for Constipati on. Insulin 2020- No [id number] 15U inject 15 Univers Glargine 11-21-12 Units ity of (LANTUS 00:00: 05:59 under the Vigilos SOLOSTAR 00 :00 skin every Medic al U-100 morning Branch INSULIN) for 30 100 unit/mL days. (3 mL) injection venlafaxine 2020- No [id number] 150mg Take 1 Univers XR 150 mg 11-21 capsule by ity of 24 hr 00:00: 05:59 mouth 3 [place] capsule 00 :00 (three) Medical times Branch daily for 30 days. Insulin 2020- No [id number] 15U inject 15 Univers Glargine 11-21-12 Units ity of (LANTUS 00:00: 05:59 under the latakooa Chatwala SOLOSTAR 00 :00 skin every Medic al U-100 morning Branch INSULIN) for 30 100 unit/mL days. (3 mL) injection venlafaxine 2020- No [id number] 150mg Take 1 Univers XR 150 mg 11-21 capsule by ity of 24 hr 00:00: 05:59 mouth 3 [place] capsule 00 :00 (three) Medical times Branch daily for 30 days. triamcinolo 2020- No [id number] Apply to [facility] ne 11-21 area(s) 2 ity of acetonide 00:00: 00:00 (two) [place] 0.1 % cream 00 :00 times Medical daily. Branch cephALEXin 2020- No [id number] 1000mg Take 2 Univers 500 mg 11-21 capsules ity of capsule 00:00: 00:00 by mouth 3 [place] 00 :00 (three) Medical times Branch daily. doxycycline 2020- No [id number] 100mg Take 1 Univers hyclate 100 11-21 capsule by i ty of mg capsule 00:00: 00:00 mouth [place] 00 :00 every 12 Medical (twelve) Branch hours. lactobacill 2020- No [id number] 1{tbl} Take 1 Univers us 11-21 tablet by ity of acidophilus 00:00: 00:00 mouth 2 [place] 25 million 00 :00 (two) Medical cell -100 times Branch mg captab daily. bisacodyL 2020- No [id number] 10mg Insert 1 Univers 10 mg 11-21 Suppositor ity of suppository 00:00: 00:00 y into [place] 00 :00 rectum at Medical bedtime as Branch needed for Constipati on. ALPRAZolam 2020- No [id number] .25mg Take 1 Univers (XANAX) 11-21 tablet by ity of 0.25 mg 00:00: 00:00 mouth 2 [place] tablet 00 :00 (two) Medical times Branch daily. hydrOXYzine 2020- No [id number] 20mg Take 2 Univers 10 mg 11-21 [...] Units ity of (LANTUS 01:13: under the [place] SOLOSTAR) 36 skin. Medical 100 unit/mL Branch [...] Units ity of (LANTUS 01:13: under the [place] SOLOSTAR) 36 skin. Medical 100 unit/mL Branch [...] Units ity of (LANTUS 01:13: under the [place] SOLOSTAR) 36 skin. Medical 100 unit/mL Branch [...] Units ity of (LANTUS 01:13: under the [place] SOLOSTAR) 36 skin. Medical 100 unit/mL Branch (3 mL) InPn INSULIN 2019-10 Yes 5U inject 5 Univer s ASPART 1-12 Units ity of (NOVOLOG 01:13: under the [facility] s FLEXPEN SC) 36 skin. [...] Units ity of (LANTUS 01:13: under the [place] SOLOSTAR) 36 skin. Medical 100 unit/mL Branch [...] Units ity of (LANTUS 01:13: under the [place] SOLOSTAR) 36 skin. Medical 100 unit/mL Branch [...] Units ity of (LANTUS 01:13: under the [place] SOLOSTAR) 36 skin. Medical 100 unit/mL Branch (3 mL) InPn INSULIN 2019-10 Yes 5U inject 5 Univer s ASPART 1-12 Units ity of (NOVOLOG 01:13: under the [facility] [place] [facility] FLEXPEN SC) 36 skin. Medical Branch ALPRAZolam 2019-10 Yes .25mg Take 0.25 U nivers (XANAX) 1-12 mg by ity of 0.25 mg 01:13: mouth 2 [place] tablet 36 (two) Medical times Branch daily. HYDROXYZINE 2019-10 2020- No 25mg Take 25 mg Univers PAMOATE 1-11 11-11 by mouth ity of ORAL 20:04: 00:00 daily. [place] 34 :00 Medical Branch hydrocortis 2019-10 Yes [id number] Apply to Univers one 2.5 % 1-11 affected ity of cream 00:00: area(s) 2 [place] 00 (two) Medical times Branch daily. hydrOXYzine 2019-10 Yes [id number] 20mg Take 2 Univers 10 mg 1-11 tablets by ity of tablet 00:00: mouth [place] 00 every 8 Medical (eight) Branch hours as needed for Itching or Anxiety. Polyethylen 2019-10 Yes [id number] 17g Take 1 Univers e Glycol 1-11 Packet by ity of 3350 17 00:00: mouth [place] gram powder 00 every 24 Medi jose c (twenty-fo Branch ur) hours as needed for Constipati on. hydrocortis 2019- Yes [id number] Apply to Univers one 2.5 % 1-11 affected ity of cream 00:00: area(s) 2 [place] 00 (two) Medical times Branch daily. hydrOXYzine 2019- Yes [id number] 20mg Take 2 Univers 10 mg 1-11 tablets by ity of tablet 00:00: mouth [place] 00 every 8 Medical (eight) Branch hours as needed for Itching or Anxiety. Polyethylen 2020- Yes [id number] 17g Take 1 Univers e Glycol 1-11 Packet by ity of 3350 17 00:00: mouth [place] gram powder 00 every 24 Medi jose c (twenty-fo Branch ur) hours as needed for Constipati on. hydrocortis 2019- Yes [id number] Apply to Univers one 2.5 % 1-11 affected ity of cream 00:00: area(s) 2 [place] 00 (two) Medical times Branch daily. hydrOXYzine 2019- Yes [id number] 20mg Take 2 Univers 10 mg 1-11 tablets by ity of tablet 00:00: mouth [place] 00 every 8 Medical (eight) Branch hours as needed for Itching or Anxiety. Polyethylen 2019- Yes [id number] 17g Take 1 Univers e Glycol 1-11 Packet by ity of 3350 17 00:00: mouth [place] gram powder 00 every 24 Medi jose c (twenty-fo Branch ur) hours as needed for Constipati on. hydrocortis 2019- Yes [id number] Apply to Univers one 2.5 % 1-11 affected ity of cream 00:00: area(s) 2 [place] 00 (two) Medical times Branch daily. hydrOXYzine 2019- Yes [id number] 20mg Take 2 Univers 10 mg 1-11 tablets by ity of tablet 00:00: mouth [place] 00 every 8 Medical (eight) Branch hours as needed for Itching or Anxiety. Polyethylen 2019- Yes [id number] 17g Take 1 Univers e Glycol 1-11 Packet by ity of 3350 17 00:00: mouth [place] gram powder 00 every 24 Medi jose c (twenty-fo Branch ur) hours as needed for Constipati on. hydrocortis 2019- Yes [id number] Apply to Univers one 2.5 % 1-11 affected ity of cream 00:00: area(s) 2 [place] 00 (two) Medical times Branch daily. hydrOXYzine 2019- Yes [id number] 20mg Take 2 Univers 10 mg 1-11 tablets by ity of tablet 00:00: mouth [place] 00 every 8 Medical (eight) Branch hours as needed for Itching or Anxiety. Polyethylen 2020- Yes [id number] 17g Take 1 Univers e Glycol 1-11 Packet by ity of 3350 17 00:00: mouth [place] gram powder 00 every 24 Medi jose c (twenty-fo Branch ur) hours as needed for Constipati on. hydrocortis 2019- Yes [id number] Apply to Univers one 2.5 % 1-11 affected ity of cream 00:00: area(s) 2 [place] 00 (two) Medical times Branch daily. hydrOXYzine 2019- Yes [id number] 20mg Take 2 Univers 10 mg 1-11 tablets by ity of tablet 00:00: mouth [place] 00 every 8 Medical (eight) Branch hours as needed for Itching or Anxiety. Polyethylen 2019- Yes [id number] 17g Take 1 Univers e Glycol 1-11 Packet by ity of 3350 17 00:00: mouth [place] gram powder 00 every 24 Medi jose c (twenty-fo Branch ur) hours as needed for Constipati on. hydrocortis 2019-10 Yes [id number] Apply to Univers one 2.5 % 1-11 affected ity of cream 00:00: area(s) 2 [place] 00 (two) Medical times Branch daily. hydrOXYzine 2019-10 Yes [id number] 20mg Take 2 Univers 10 mg 1-11 tablets by ity of tablet 00:00: mouth [place] 00 every 8 Medical (eight) Branch hours as needed for Itching or Anxiety. Polyethylen 2019- Yes [id number] 17g Take 1 Univers e Glycol 1-11 Packet by ity of 3350 17 00:00: mouth [place] gram powder 00 every 24 Medi jose c (twenty-fo Branch ur) hours as needed for Constipati on. triamcinolo 2019- 2020- No [id number] Apply to [facility] 10-23 area(s) 2 ity of acetonide 00:00: 05:59 (two) [place] 0.1 % cream 00 :00 times Medical daily for Branch 14 days. triamcinolo 2020- 2020- No [id number] Apply to [facility] 10-23 area(s) 2 ity of acetonide 00:00: 05:59 (two) [place] 0.1 % cream 00 :00 times Medical daily for Branch 14 days. triamcinolo 2020- 2020- No [id number] Apply to [facility] 1-11 11-26 area(s) 2 ity of acetonide 00:00: 05:59 (two) [place] 0.1 % cream 00 :00 times Medical daily for Branch 14 days. KCL 2019- 2020- No 40meq 40 mEq, Univers (KLOR-CON 1-10 11-10 Oral, ONCE ity of M20) tablet 16:15: 16:23 NOW, 1 Jeff as 40 mEq 00 :00 dose, [facility] 08/22/20 Branch at 1015, Routine HYDROmorpho 2019-10 Yes 1mg 1 mg, Unive rs ne 1-10 Oral, ity of (DILAUDID) 15:07: Q6HPRN, [place] tablet 1 mg 53 Starting [facility] 08/22/20 at 0907, Until Discontinu ed, Routine, Pain (scale 7-10) hydrocortis 2019-10 Yes Topical Uni vers one 2.5 % -10 (Apply To ity o f cream 02:00: Affected [place] 00 Areas), Medical BID, First Branch dose on [facility] 08/21/20 at 2000, Until Discontinu ed, Routine triamcinolo 2019-10 Yes Topical, Un toi ne 1-10 BID, First ity of acetonide 02:00: dose on [place] (TRIDERM) 00 Fri Medical 0.1 % cream 08/21/20 at Br anch 2000, Until Discontinu ed, Routine hydrOXYzine 2019-10 Yes 20mg 20 mg, Univ ers (ATARAX) 09 Oral, ity of tablet 20 17:39: Q8HPRN, [place] mg 12 Starting Medical [facility] 08/21/20 at 1139, Until Discontinu ed, Routine, Itching, Anxiety sennosides- 2019-10 Yes 1{tbl} 1 tablet, Univers docusate 09 Oral, ity of sodium 15:00: DAILY, [place] (SENOKOT-S) 00 First dose Me dical 8.6-50 mg on [facility] Branch per tablet 08/21/20 at 1 tablet 0900, Until Discontinu ed, Routine hydrocortis 2019-10 2020- No Topical Un toi one 1 % 10-21 11- (Apply To ity of cream 15:00: 22:54 Affected [place] 00 :48 Areas), Medical DAILY, Branch First dose on [facility] 08/21/20 at 0900, Until Discontinu ed, Routine venlafaxine 2019-10 Yes 150mg 150 mg, Un toi XR (EFFEXOR 10-21 Oral, TID, it y of XR) 24 hr 14:00: [place] capsule 150 00 on [facility] Medica l mg 08/21/20 at Branch 0800, Until Discontinu ed, Routine heparin 2019-10 Yes 5000U 5,000 Univers (porcine) 10-21 Units, ity of injection 14:00: Subcutaneo [place] 5,000 Units 00 us, Q12H, Med ical First dose Branch on [facility] 08/21/20 at 0800, Until Discontinu ed, Routine diphenhydrA 2019-10 2020- No 25mg 25 mg, Uni vers MINE 10-21 Oral, ity of (BENADRYL) 12:56: 17:39 Q8HPRN, [place] tablet 25 59 :43 Starting Medica l mg [facility] 08/21/20 at 0656, Until [facility] 08/21/20 at 1139, Routine, Itching, Mild Rash, Congestion /Allergies , alternate with hydroxyzin e hydrOXYzine 2019-10 2020- No 10mg 10 mg, Uni vers (ATARAX) 10-21 Oral, ity of tablet 10 10:20: 12:57 Q6HPRN, [place] mg 22 :12 Starting Medical [facility] 08/21/20 at 0420, Until [facility] 08/21/20 at 0657, Routine, Itching, Anxiety Sliding 2019-10 Yes Subcutaneo Univ ers Scale 10-21 us, Q4H, ity of Insulin - 10:00: First [place] Aspart 00 (after Medical (NOVOLOG) + last Branch Fsbg modificati Testing on) on [facility] 08/21/20 at 0400, Until Discontinu ed, Routine lidocaine 5 2019-10 2020- No Topical, U nivers % ointment 10-21 ONCE, 1 ity o f 09:30: 09:14 dose, [facility] 00 :00 08/21/20 at [facility] 0330, Branch Routine Polyethylen 2019-10 Yes 17g 17 g, Unive rs e Glycol 10-21 Oral, ity of 3350 08:29: [id number], [place] (MIRALAX) 09 Starting Medica l powder 17 g [facility] 08/21/20 at 0229, Until Discontinu ed, Routine, Constipati on lanolin 2019-10 Yes Topical, [place] [facility] s alcohol-mo- 10-21 PRN, ity of w.pet-ceres [...] tablet 650 24 Starting Medic al mg [facility] 08/21/20 at 0145, Until Discontinu ed, Routine, Pain (scale 1-3) sotalol 2019-10 2020- No Take by [place] [facility] s (BETAPACE) 10-21 mouth ity of 240 mg 07:43: 00:00 every 12 [place] tablet 30 :00 (twelve) Medical hours. Branch blood sugar Yes Use to [facility] ers diagnostic 4-25 check ity of (FREESTYLE 00:00: blood [place] LITE 00 glucose Medical STRIPS) 4-5 times Branch strip daily. blood sugar Yes Use to [facility] ers diagnostic 4-25 check ity of (FREESTYLE 00:00: blood [place] LITE 00 glucose Medical STRIPS) 4-5 times Branch strip daily. blood sugar Yes Use to [facility] ers diagnostic 4-25 check ity of (FREESTYLE 00:00: blood [place] LITE 00 glucose Medical STRIPS) 4-5 times Branch strip daily. blood sugar Yes Use to [facility] ers diagnostic 4-25 check ity of (FREESTYLE 00:00: blood [place] LITE 00 glucose Medical STRIPS) 4-5 times Branch strip daily. blood sugar Yes Use to [facility] ers diagnostic 4-25 check ity of (FREESTYLE 00:00: blood [place] LITE 00 glucose Medical STRIPS) 4-5 times Branch strip daily. blood sugar Yes Use to [facility] ers diagnostic 4-25 check ity of (FREESTYLE 00:00: blood [place] LITE 00 glucose Medical STRIPS) 4-5 times Branch strip daily. blood sugar Yes Use to [facility] ers diagnostic -25 check ity of (FREESTYLE 00:00: blood [place] LITE 00 glucose Medical STRIPS) 4-5 times Branch strip daily. Vital Signs Vital Name Observation Time Observation Value Comments Source Systolic blood 2021-08-22 13:00:00 148 mm[Hg] Univer sity of [facility] Diastolic blood 2021-08-22 13:00:00 84 mm[Hg] [facility] Heart rate 2021-08-22 13:00:00 103 /min [facility] Respiratory rate 2021-08-22 13:00:00 18 /min [facility] Oxygen saturation in 2021-08-22 13:00:00 95 /min [facility] Arterial blood by [facility] Pulse oximetry Branch Body temperature 2021-08-22 12:22:[address] [facility] Systolic blood 2020-12-17 18:35:00 139 mm[Hg] Univer sity of [facility] Diastolic blood 2020-12-17 18:35:00 87 mm[Hg] [facility] Heart rate 2020-12-17 18:35:00 110 /min [facility] Body temperature 2020-12-17 18:35:00 37.72 [place] Univ ersity [facility] [place] [facility] Respiratory rate 2020-12-17 18:35:00 18 /min Univ ersity [facility] [place] [facility] Oxygen saturation in 2020-12-17 18:35:00 93 /min University of Arterial blood by [facility] Pulse oximetry Branch Body height 2020-12-12 08:21:00 180.3 cm [facility]i [facility] [place] [facility] Body weight 2020-12-12 08:21:00 103.42 kg [facility]i [facility] [place] [facility] BMI 2020-12-12 08:21:00 31.80 kg/m2 [facility] [place] [facility] Systolic blood 2020-12-17 18:35:00 139 mm[Hg] Univer sity of pressure [place] [facility] Diastolic blood 2020-12-17 18:35:00 87 mm[Hg] Unive rsity of pressure [place] [facility] Heart rate 2020-12-17 18:35:00 110 /min [facility] [place] [facility] Body temperature 2020-12-17 18:35:00 37.72 [place] Univ ersity [facility] [place] [facility] Respiratory rate 2020-12-17 18:35:00 18 /min Univ ersity [facility] [place] [facility] Oxygen saturation in 2020-12-17 18:35:00 93 /min University of Arterial blood by [facility] Pulse oximetry Branch Body height 2020-12-12 08:21:00 180.3 cm [facility] [place] [facility] Body weight 2020-12-12 08:21:00 103.42 kg [facility]i [facility] [place] [facility] BMI 2020-12-12 08:21:00 31.80 kg/m2 [facility] [place] [facility] Systolic blood 2020-08-23 19:27:00 140 mm[Hg] Univer sity of pressure [place] [facility] Diastolic blood 2020-08-23 19:27:00 79 mm[Hg] Unive rsity of pressure [place] [facility] Heart rate 2020-08-23 19:27:00 99 /min [facility]i [facility] [place] [facility] Body temperature 2020-08-23 19:27:00 36 [place] Univ ersity [facility] [place] [facility] Respiratory rate 2020-08-23 19:27:00 18 /min Univ ersity [facility] [place] [facility] Oxygen saturation in 2020-08-23 19:27:00 93 /min University of Arterial blood by [facility] Pulse oximetry Branch Body weight 2020-08-21 07:20:00 104.962 kg Universi [facility] BMI 2020-08-21 07:20:00 32.27 kg/m2 [facility] Systolic blood 2020-08-23 19:27:00 140 mm[Hg] Univer sity of pressure [facility] Diastolic blood 2020-08-23 19:27:00 79 mm[Hg] [facility] 2020-08-23 19:27:00 99 /min [facility] Body temperature 2020-08-23 19:27:00 36 [place] [facility] Respiratory rate 2020-08-23 19:27:00 18 /min Univ [facility] Oxygen saturation in 2020-08-23 19:27:00 93 /min [facility] Arterial blood by [facility] Pulse oximetry Branch Body weight 2020-08-21 07:20:00 104.962 kg [facility] BMI 2020-08-21 07:20:00 32.27 kg/m2 [facility] Procedures Procedure Date / Time Performing Clinician Source Performed POCT GLUCOSE (AUTOMATED) 2020-12-17 15:42:00 Vika Harrison G Uni [facility] BASIC METABOLIC PANEL 2020-12-17 10:45:00 Paul Bean [facility] (NA, K, CL, CO2, GLUCOSE, [facility] Medica l Branch BUN, CREATININE, CA) CBC WITH DIFF 2020-12-17 10:45:00 Paul Bean [facility] POCT GLUCOSE (AUTOMATED) 2020-12-17 02:36:00 Vika Harrison [facility] XR TIBIA FIBULA 2 VW LEFT 2020-12-16 23:38:00 Paul Bean [facility] POCT GLUCOSE (AUTOMATED) 2020-12-16 23:20:00 Vika Harrison [facility] POCT GLUCOSE (AUTOMATED) 2020-12-16 20:10:00 Vika Harrison Uni [facility] [place] [facility] POCT GLUCOSE (AUTOMATED) 2020-12-16 14:43:00 Harrison, Premal [facility] BASIC METABOLIC PANEL 2020-12-16 13:51:00 Paul Bean [facility] (NA, K, CL, CO2, GLUCOSE, [facility] BUN, CREATININE, CA) CBC WITH DIFF 2020-12-16 13:51:00 Paul [facility] POCT GLUCOSE (AUTOMATED) 2020-12-16 04:00:00 Harrison, [facility]al [facility] POCT GLUCOSE (AUTOMATED) 2020-12-16 00:14:00 Favio Harrisonal [facility] CT CHEST PULMONARY 2020-12-15 22:29:38 Paul Bean [facility] ANGIOGRAM [facility] POCT GLUCOSE (AUTOMATED) 2020-12-15 19:26:00 Favio Harrisonal [facility] POCT GLUCOSE (AUTOMATED) 2020-12-15 15:13:00 Vika Harrison [facility] HB ECG ROUTINE & RHYTHM 2020-12-15 14:25:27 Cailin Romo [facility] MAGNESIUM 2020-12-15 12:01:00 Paul Bean [facility] BASIC METABOLIC PANEL 2020-12-15 12:01:00 Paul Bean [facility] (NA, K, CL, CO2, GLUCOSE, [place] [facility] BUN, CREATININE, CA) CBC WITH DIFF 2020-12-15 12:01:00 Paul Bean [facility] POCT GLUCOSE (AUTOMATED) 2020-12-15 03:57:00 Harrison, Favioal G Uni versity of [facility] POCT GLUCOSE (AUTOMATED) 2020-12-14 23:31:00 Harrison, Premal G Uni versity [facility] POCT GLUCOSE (AUTOMATED) 2020-12-14 19:08:00 Harrison, Premal G Uni versity of [facility] POCT GLUCOSE (AUTOMATED) 2020-12-14 15:11:00 Harrison, Premal G Uni versity of [facility] POCT GLUCOSE (AUTOMATED) 2020-12-14 02:36:00 Harrison, Premal G Uni versity of [facility] POCT GLUCOSE (AUTOMATED) 2020-12-13 23:32:00 Harrison, Premal G Uni versity of [facility] POCT GLUCOSE (AUTOMATED) 2020-12-13 18:08:00 Harrison, Premal G Uni versity of [facility] BASIC METABOLIC PANEL 2020-12-13 15:39:00 Paul Bean [facility] (NA, K, CL, CO2, GLUCOSE, [facility] BUN, CREATININE, CA) CBC WITH DIFF 2020-12-13 15:39:00 Paul Bean [facility] POCT GLUCOSE (AUTOMATED) 2020-12-13 14:06:00 Harrison, Premal G Uni versity of [facility] POCT GLUCOSE (AUTOMATED) 2020-12-13 03:07:00 Harrison, Premal G Uni versity of [facility] POCT GLUCOSE (AUTOMATED) 2020-12-12 23:52:00 Harrison, Premal G Uni versity of [facility] POCT GLUCOSE (AUTOMATED) 2020-12-12 20:28:00 Harrison, Premal G Uni versity of [facility] POCT GLUCOSE (AUTOMATED) 2020-12-12 19:14:00 Harrison, Premal G Uni versity of [facility] POCT GLUCOSE (AUTOMATED) 2020-12-12 14:33:00 Harrison, Premal G Uni versity of [facility] Branch MAGNESIUM 2020-12-12 08:58:00 Paul Bean [facility] BASIC METABOLIC PANEL 2020-12-12 08:58:00 Paul Bean [facility] (NA, K, CL, CO2, GLUCOSE, [facility] BUN, CREATININE, CA) CBC WITH DIFF 2020-12-12 08:58:00 Paul Bean [facility] US ABDOMEN LIMITED 2020-12-12 06:32:26 Paul Bean [facility] POCT GLUCOSE (AUTOMATED) 2020-12-12 03:40:00 Hunter Vika Fernando [facility] POCT GLUCOSE (AUTOMATED) 2020-12-12 00:06:00 Vika Harrison [facility] XR HIPS 3 VW LEFT 2020-12-11 20:20:00 [facility]OUTINE & RHYTHM 2020-12-11 20:04:06 Demetrius [facility] VITAMIN B6, PLASMA 2020-12-11 [facility] 2020-12-11 19:06:00 Vika Harrison [facility] CREATINE KINASE 2020-12-11 18:22:00 [facility] B12, LEVEL 2020-12-11 18:22:00 Vikas [facility] FOLATE 2020-12-11 [facility] 2020-12-11 18:22:00 Demetrius Cailin [facility] PROCALCITONIN 2020-12-11 18:22:00 [place] [facility] VITAMIN B1 (THIAMINE), 2020-12-11 18:22:00 [facility] WHOLE BLOOD [facility] HEAD WO CONTRAST 2020-12-11 14:07:35 Sweetie Stout [facility] URINALYSIS 2020-12-11 13:44:00 Singer [facility] URINE CULTURE 2020-12-11 13:44:00 Singer [facility] COVID-19 (ID NOW RAPID 2020-12-11 12:31:00 Paco Lacey [facility] TESTING) Medical Branch LAB ONLY COVID 2020-12-11 12:31:00 Singer Paco [facility] INTERPRETATION [facility] Branch XR CHEST 1 VW 2020-12-11 12:07:24 Singer [facility] BLOOD CULTURE SCREEN 2020-12-11 12:02:00 Singer Paco [facility] MAGNESIUM 2020-12-11 12:02:00 [facility] 2020-12-11 12:02:00 [facility] COMP. METABOLIC PANEL 2020-12-11 12:02:00 Singer [facility] ([id number]) [facility] Branch CBC WITH DIFF 2020-12-11 12:02:00 [facility] LACTIC ACID WHOLE BLOOD 2020-12-11 12:02:00 [facility] BLOOD CULTURE SCREEN 2020-12-11 11:42:00 Singer [facility] EMERGENCY SERVICES 2020-12-11 06:01:00 Doctor Unaowen, [facility] AGREEMENTS AND [place] [facility] [place] AUTHORIZATIONS HOSPITAL ADMISSION 2020-12-11 06:01:00 Doctor Tabitha, [facility] Name [facility] [place] HOME HEALTH - OTHER 2020-11-11 06:01:00 Doctor Tabitha, [facility] [place] [facility] [place] [facility] - OTHER 2020-10-30 06:01:00 Doctor Tabitha, [facility] Name [facility] [place] EXTERNAL PROVIDER RECORDS 2020-09-01 06:01:00 Doctor Tabitha, [facility] Name [facility] POCT GLUCOSE (AUTOMATED) 2020-08-23 18:09:00 [place] [facility] POCT GLUCOSE (AUTOMATED) 2020-08-23 14:14:00 Kelly [place] [facility] MAGNESIUM 2020-08-23 11:18:00 Ramya [facility] BASIC METABOLIC PANEL 2020-08-23 11:18:00 Ramya [facility] (NA, K, CL, CO2, GLUCOSE, Medica l Branch BUN, CREATININE, CA) CBC WITH DIFF 2020-08-23 11:18:00 Ramya [facility] POCT GLUCOSE (AUTOMATED) 2020-08-23 10:21:00 StefaniaKelly versity [facility] POCT GLUCOSE (AUTOMATED) 2020-08-23 05:55:00 [place] versity of [facility] POCT GLUCOSE (AUTOMATED) 2020-08-23 03:00:00 [place] versity [facility] POCT GLUCOSE (AUTOMATED) 2020-08-22 23:38:00 [place] Kelly Elias versity of [facility] POCT GLUCOSE (AUTOMATED) 2020-08-22 19:04:00 [facility]ania [facility] ([facility]OMATED) 2020-08-22 13:49:00 Stefania Kelly Elias [facility] MAGNESIUM 2020-08-22 10:10:00 Castella [facility] HEPATIC FUNCTION PANEL 2020-08-22 10:10:00 Aguila Melchor [facility] ([id number]) (ALB,T.PRO,BILI Medical Branch T,BU/BC,ALT,AST,ALK PHOS) BASIC METABOLIC PANEL 2020-08-22 10:10:00 Castella [facility] (NA, K, CL, CO2, GLUCOSE, Medica l Branch BUN, CREATININE, CA) LIPID PANEL ([id number])(TOTAL 2020-08-22 10:10:00 Castella [facility] CHOLESTEROL, [facility] [place] TRIGLYCERIDES, HDL) CBC WITH DIFF 2020-08-22 10:10:00 Castella [facility] POCT GLUCOSE (AUTOMATED) 2020-08-22 10:10:00 Stefania Kelly Elias [facility] POCT GLUCOSE (AUTOMATED) 2020-08-22 07:13:00 Stefania Kelly Elias [facility] POCT GLUCOSE (AUTOMATED) 2020-08-22 02:24:00 Stefania Kelly Elias [facility] POCT GLUCOSE (AUTOMATED) 2020-08-21 23:40:00 Stefania Kelly Elias [facility] POCT GLUCOSE (AUTOMATED) 2020-08-21 18:10:00 StefaniaKelly [facility] POCT GLUCOSE (AUTOMATED) 2020-08-21 13:39:00 StefaniaKelly [facility] ETHANOL 2020-08-21 12:35:00 Richie [facility] ACTIVATED PARTIAL 2020-08-21 12:35:00 Stefania [facility] GALV ONLY - SYPHILIS 2020-08-21 12:35:00 Stefania Kelly [facility] IGG/IGM [facility] LACTATE DEHYDROGENASE 2020-08-21 10:09:00 Castella, [facility] GALV/CLC ONLY - URINE 2020-08-21 10:09:[facility] - 4 ER Medica l Branch PANEL URINALYSIS 2020-08-21 10:09:00 Ramya, [facility] URINE CULTURE 2020-08-21 10:09:00 Ramya, [facility] PROCALCITONIN 2020-08-21 10:09:00 Castella, [facility] POCT GLUCOSE (AUTOMATED) 2020-08-21 09:41:00 StefaniaKelly [facility] PROTHROMBIN TIME / INR 2020-08-21 08:32:00 Castella, [facility] ACTIVATED PARTIAL 2020-08-21 08:32:00 Castella, [facility] C-REACTIVE PROTEIN 2020-08-21 08:31:00 Castella, [facility] HEPATIC FUNCTION PANEL 2020-08-21 08:31:00 Ramya, [facility] ([id number]) (ALB,T.PRO,BILI Medical Branch T,BU/BC,ALT,AST,ALK PHOS) BASIC METABOLIC PANEL 2020-08-21 08:31:00 Castella, [facility] (NA, K, CL, CO2, GLUCOSE, Medica l Branch BUN, CREATININE, CA) SEDIMENTATION RATE 2020-08-21 08:31:00 Castella, [facility] CBC WITH DIFF 2020-08-21 08:31:00 Ramya, [facility] GLYCOSYLATED HEMOGLOBIN 2020-08-21 08:31:00 Ramya, [facility] (A1C) [facility] HIV 1/2 AG-AB WITH REFLEX 2020-08-21 08:31:00 Kelly [place] Un [facility] (ID NOW RAPID 2020-08-21 08:20:00 Ramya, [facility] TESTING) Medical Branch LAB ONLY COVID 2020-08-21 08:20:00 Castella, [facility] INTERPRETATION [facility] Encounters Start End Encounter Admission Attending Care Care Encounter Source Date/Time Date/Time Type Type Clinicians Facility Department ID 2022-11-13 Outpatient [id number] ENCPL REF [id number] [facility] 11:39:58 0201 [facility] [place] 2020-08-21 Inpatient U STEFANIA [facility] KVNG [id number] Univers 01:07:00 KELLY cantu [facility] 2022-11-14 2022-11-28 Inpatient 3 [facility] ENCPL DELVIS [id number] [facility] 20:40:00 13:29:00 shaggy [facility] [place] 2021-08-22 2021-08-22 Emergency X [facility] ERT [id number] Univers 06:21:00 08:02:00 [facility] 2021-08-22 2021-08-22 Emergency [facility] [id number] Univers 06:21:00 08:02:00 Sweetie LOTT [id number] i ty roxana WARREN [id number] [facility] [id number] [facility] 084 Branch 2021-08-09 2021-08-09 Outpatient JACQUELYN HAINES [id number] [facility] 10:27:03 10:27:03 ADRIANA lopez of Medicin e 2020-12-28 2020-12-28 Telephone [facility] [id number] Univers 00:00:00 00:00:00 Calvin H PRIMARY [id number] it y of C[place]2.[place] [id number] Nh dical 220 Branch 2020-12-28 2020-12-28 Telephone [facility] [id number] 00:00:00 00:00:00 Calvin H PRIMARY [id number] CARE [id number] PAVILLION [id number] 220 2020-12-19 2020-12-19 Transition Tuan Peters [id number] Univers 00:00:00 00:00:00 of Care Ruchi Braswell [id number] it y of [id number] [place] [id number] [facility] 403 Branch 2020-12-19 2020-12-19 Transition Tuan Peters [id number] 00:00:00 00:00:00 of Care Ruchi Braswell [id number] [place] [id number] [facility] 2020-12-11 2020-12-17 [facility] Paco Lacey [id number] Univers 05:11:00 16:00:00 Encounter Vika Harrisony [id number] ity of [facility] [id number] [place] [id number] [facility] 096 Branch 2020-12-11 2020-12-17 Inpatient X [facility] [id number] Univers 05:11:00 16:00:00 ity of [facility] 2020-12-11 2020-12-17 [facility] Paco Lacey 1.2.840.1 [id number] 05:11:00 16:00:00 Encounter Vika Harrison G Monique [id number] [facility] [id number] [id number] 2020-11-16 2020-11-16 Emergency X , [facility] ERT [id number] Univers 09:31:00 09:31:00 PACO cantu of [facility] 2020-11-11 2020-11-11 Orders Doctor BASILIA [id number] Univers 00:00:00 00:00:00 Only Unassigned, MONIQUE [id number] ity of [facility] 4.2.7.2.686 Jeff as [phone] [address] 2020-11-11 2020-11-11 Orders Doctor BASILIA 1.2.840.114 [id number] 00:00:00 00:00:00 Only Unassigned, MONIQUE [id number] [place] [facility] 4.2.7.2.686 [id number] 2020-11-07 2020-11-07 Telephone [facility] [id number] Univers 00:00:00 00:00:00 Angi Lott [id number] ity of [place] Profess[place] [id number] [address] 2020-11-07 2020-11-07 Telephone [facility] [id number] 00:00:00 00:00:00 Angi Lott [id number] [place] 4.2.7.2.686 Professio [id number] [address] 2020-10-30 2020-10-30 Orders Doctor BASILIA 1.2.840.114 [id number] Univers 00:00:00 00:00:00 Only Unassigned, MONIQUE [id number] ity [facility] [place] [id number] Jeff as [phone] [address] 2020-10-30 2020-10-30 Orders Doctor CUI 1.2.840.114 [id number] 00:00:00 00:00:00 Only Unassigned, MONIQUE [id number] [place] [id number] [id number] 2020-09-26 2020-09-26 Telephone STONE Mccabe 1.2.840.114 [id number] Univers 00:00:00 00:00:[address] [facility] [id number] i ty of CLINICS 4.2.7.2.[place] [id number] [facility] 027 Branch 2020-09-26 2020-09-26 Telephone STONE Mccabe 1.2.840.114 [id number] 00:00:00 00:00:[address] [facility] [id number] CLINICS [id number] [id number] 2020-09-01 2020-09-01 Orders Doctor BASILIA 1.2.840.114 [id number] Univers 00:00:00 00:00:00 Only Unassigned, MONIQUE 350.1.13.10 [facility] 4.2.7.2.686 Jeff as [id number] [facility] [address] 2020-09-01 2020-09-01 Orders Doctor BASILIA 1.2.840.114 [id number] 00:00:00 00:00:00 Only Unassigned, MONIQUE 350.1.13.10 [facility] 4.2.7.2.686 [id number] [id number] 2020-08-25 2020-08-25 Transition Tuan Peters 1.2.840.114 [id number] Univers 00:00:00 00:00:00 of Care Ruchi Braswell 350.1.13.10 [place] [id number] [facility] [address] 2020-08-25 2020-08-25 Transition Tuan Peters 1.2.840.114 [id number] 00:00:00 00:00:00 of Care Ruchi Braswell 350.1.13.10 [place] 4.2.7.2.686 [id number] 2020-08-21 2020-08-23 [facility] Kelly Washington 1. 2.840.114 [id number] Univers 01:07:00 18:35:00 Encounter Mukul Gallardo 350.1.13. 10 [facility] 4.2.7.2.686 Jeff as [phone] [place] [id number] [place] 2020-08-21 2020-08-23 [facility] Ayleen [place] 1.2.840.114 [id number] 01:07:00 18:35:00 Encounter Kelly Amaya 350.1.13.10 [facility] 4.2.7.2.686 [id number] 095 Results Test Description Test Time Test Comments Results Result Comments Source POCT GLUCOSE (AUTOMATED) 2020-12-17 15:43:35 Test Item Value Reference Range Interpretation Comme nts POCT GLU (test code = 7212683260) 129 mg/dL 70-110 H Lab Interpretation (test code = 49952-5) Abnormal [facility] METABOLIC PANEL (NA, K, CL, CO2, GLUCOSE, BUN, CREATININE, CA)2020-12-17 11:45:07 Test Item Value Reference Range Interpretation Comments NA (test code = 137 mmol/L 135-145 2202109066) K (test code = 3.5 mmol/L 3.5-5.0 4716521718) CL (test code = 103 mmol/L 98-108 3538292766) CO2 TOTAL (test code = 26 mmol/L 23-31 0632505502) AGAP (test code = 2-16 8857367941) BUN (test code = 11 mg/dL 7-23 7496398195) GLUCOSE (test code = 175 mg/dL 70-110 H 3993155468) CREATININE (test code = 0.62 mg/dL 0.60-1.25 0771309759) CALCIUM (test code = 9.0 mg/dL 8.6-10.6 5831585504) eGFR Calculation mL/min/1.73m2 (Non-) (test code = 5895505941) eGFR Calculation mL/min/1.73m2 () (test code = 2205757114) JAMES (test code = JAEMS) Association of Glomerular Filtration Rate (GFR) and [...] tests). Lab Interpretation Abnormal (test code = 39535-8) [facility] WITH [id number] 11:07:27 Test Item Value Reference Range Interpretation Comments WBC (test code = See_Comment H [Automated 0548-2) message] The sy stem which generated this result transmitted reference range : 4.20 - 10.70 10*3/?L. The reference range was not used to interpret this result as normal/abnormal . RBC (test code = See_Comment [Automated 449-8) message] The sy stem which [...] RDW-SD (test code = 45.2 fL 38.5-51.6 87656-8) RDW-CV (test code = 16.9 % 12.1-15.4 H 788-0) PLT (test code = See_Comment H [Automated 777-3) message] The sy stem which generated this result transmitted reference range : 150 - 328 10*3/ ?L. The reference r torito was not used to interpret this result as normal/abnormal . MPV (test code = 8.1 fL 9.8-13.0 L 55745-5) NRBC/100 WBC (test See_Comment [Automat ed code = 4636563784) message] The system which generated this result transmitted reference range : 0.0 - 10.0 /100 WBCs. The refer ence range was not u sed to interpret th is result as normal/abnormal . NRBC x10^3 (test code <0.01 See_Comment [Auto mated = 0578463904) message] The s ystem which generated this result transmitted reference range : 10*3/?L. The reference range was not used to interpret this result as normal/abnormal . GRAN MAT (NEUT) % 72.8 % (test code = 770-8) IMM GRAN % (test code 0.60 % = 2137757773) LYMPH % (test code = 18.4 % 736-9) MONO % (test code = 5.7 % 5905-5) EOS % (test code = 1.8 % 713-8) BASO % (test code = 0.7 % 706-2) GRAN MAT x10^3(ANC) 8.23 10*3/uL 1.99-6.95 H (test code = 2166552915) IMM GRAN x10^3 (test 0.07 10*3/uL 0.00-0.06 H code = 1789009415) LYMPH x10^3 (test code 2.08 10*3/uL 1.09-3.23 = 731-0) MONO x10^3 (test code 0.65 10*3/uL 0.36-1.02 = 742-7) EOS x10^3 (test code = 0.20 10*3/uL 0.06-0.53 711-2) BASO x10^3 (test code 0.08 10*3/uL 0.01-0.09 = 704-7) Lab Interpretation Abnormal (test code = 10695-2) [facility]-12[facility]17 06:03:38 Test Item Value Reference Range Interpretation Comments POCT GLU (test code = 1258181434) 75 mg/dL 70-110 Lab Interpretation (test code = Normal 47397-4) [facility] B6, [id number] 00:01:00 Test Item Value Reference Range Interpretation Comments VIT B6 (test code = 13.1 nmol/L 20.0-125.0 L INTERPRE TIVE 17778-1) INFORMATION: Vi tamin B6 (Pyridoxal 5-Phosphate) Pyridoxal 5'-phosphate me asured in a specimen collected follo wing an 8-hour or overnight fast accurately clara cates vitamin B6 nutritional sta tus. Non-fasting spe cimen concentration reflects recent vitamin intake. This test was develo ped and its perform ance characteristics determined by [facility]. I t has not been cleare d or approved by the [place] Food and Drug Administration. This test was perfor med in a CLIA certifie d laboratory and is intended for cl inical purposes.Perfor med By: [employer] [place] [address] [id number] Director: Namrata Klein MD Lab Interpretation Abnormal (test code = 00898-9) [facility] TIBIA FIBULA 2 VW [id number] 23:57:09 Tricompartmental knee joint osteoarthrosis.XR TIBIA FIBULA [...] No acute fracture or dislocation.IMPRESSIONTricompartmental knee joint osteoarthrosis.[facility] GLUCOSE (AUTOMATED) 2020-12-16 23:27:00 Test Item Value Reference Range Interpretation Comments POCT GLU (test code = 2820037816) 114 mg/dL 70-110 H Lab Interpretation (test code = Abnormal 72163-8) [facility] GLUCOSE (AUTOMATED)2020-12-16 20:12:00 Test Item Value Reference Range Interpretation Comments POCT GLU (test code = 1665929058) 105 mg/dL 70-110 Lab Interpretation (test code = Normal 60983-9) [facility] GLUCOSE (AUTOMATED)2020-12-16 14:44:00 Test Item Value Reference Range Interpretation Comments POCT GLU (test code = 7754025998) 153 mg/dL 70-110 H Lab Interpretation (test code = Abnormal 63815-4) [facility] METABOLIC PANEL (NA, K, CL, CO2, GLUCOSE, BUN, CREATININE, CA)2020-12-16 14:23:00 Test Item Value Reference Range Interpretation Comments NA (test code = 138 mmol/L 135-145 3059532254) K (test code = 3.4 mmol/L 3.5-5.0 L 4667497629) CL (test code = 100 mmol/L 98-108 2289608069) CO2 TOTAL (test code = 31 mmol/L 23-31 7563611705) AGAP (test code = 2-16 4604212158) BUN (test code = 11 mg/dL 7-23 6452093901) GLUCOSE (test code = 162 mg/dL 70-110 H 7761485499) CREATININE (test code = 0.64 mg/dL 0.60-1.25 6088948192) CALCIUM (test code = 8.9 mg/dL 8.6-10.6 1450547009) eGFR Calculation mL/min/1.73m2 (Non-) (test code = 3195346345) eGFR Calculation mL/min/1.73m2 () (test code = 1639425089) JAMES (test code = JAMES) Association of [...] tests). Lab Interpretation Abnormal (test code = 15626-4) [facility] WITH [id number] 14:05:00 Test Item Value Reference Range Interpretation Comments WBC (test code = See_Comment H [Automated 5774-2) message] The sy stem which generated this result transmitted reference range : 4.20 - 10.70 10*3/?L. The reference range was not used to interpret this result as normal/abnormal . RBC (test code = See_Comment [Automated 127-8) message] The sy stem which generated this [...] RDW-SD (test code = 45.4 fL 38.5-51.6 89376-7) RDW-CV (test code = 17.0 % 12.1-15.4 H 788-0) PLT (test code = See_Comment H [Automated 777-3) message] The sy stem which generated this result transmitted reference range : 150 - 328 10*3/ ?L. The reference r torito was not used to interpret this result as normal/abnormal . MPV (test code = 8.0 fL 9.8-13.0 L 88802-6) NRBC/100 WBC (test See_Comment [Automat ed code = 5499032243) message] The system which generated this result transmitted reference range : 0.0 - 10.0 /100 WBCs. The refer ence range was not u sed to interpret th is result as normal/abnormal . NRBC x10^3 (test code <0.01 See_Comment [Auto mated = 1347732911) message] The s ystem which generated this result transmitted reference range : 10*3/?L. The reference range was not used to interpret this result as normal/abnormal . GRAN MAT (NEUT) % 70.0 % (test code = 770-8) IMM GRAN % (test code 0.70 % = 7360982963) LYMPH % (test code = 20.5 % 736-9) MONO % (test code = 7.1 % 5905-5) EOS % (test code = 1.0 % 713-8) BASO % (test code = 0.7 % 706-2) GRAN MAT x10^3(ANC) 9.44 10*3/uL 1.99-6.95 H (test code = 7988019038) IMM GRAN x10^3 (test 0.09 10*3/uL 0.00-0.06 H code = 8426107488) LYMPH x10^3 (test code 2.76 10*3/uL 1.09-3.23 = 731-0) MONO x10^3 (test code 0.96 10*3/uL 0.36-1.02 = 742-7) EOS x10^3 (test code = 0.13 10*3/uL 0.06-0.53 711-2) BASO x10^3 (test code 0.10 10*3/uL 0.01-0.09 H = 704-7) Lab Interpretation Abnormal (test code = 85010-1) [facility] Culture - Peripheral # [id number] 13:01:00 Test Item Value Reference Range Interpretation Comments Blood Culture-Aerobic No organisms No growth Previo us (test code = 67842-6) isolated prelim inary verified result was Culture In Progress on 12/11/2020 at 100 1 CSTPrevious preliminary verified result was No growth a t 24 hours on 12/12/2020 at 070 1 CSTPrevious preliminary verified result was No growth a t 48 hours on 12/13/2020 at 070 1 CSTPrevious preliminary verified result was No growth a t 72 hours on 12/14/2020 at 070 1 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 Blood No organisms No growth Previous Culture-Anaerobic isolated preliminar y (test code = 25562-5) verifi ed result was Culture In Progress on 12/11/2020 at 100 1 CSTPrevious preliminary verified result was No growth a t 24 hours on 12/12/2020 at 070 1 CSTPrevious preliminary verified result was No growth a t 48 hours on 12/13/2020 at 070 1 CSTPrevious preliminary verified result was No growth a t 72 hours on 12/14/2020 at 070 1 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 Lab Interpretation Normal (test code = 74440-6) [facility] Culture - Peripheral # [id number] 13:01:00 Test Item Value Reference Range Interpretation Comments Blood Culture-Aerobic No organisms No growth Previo us (test code = 29807-4) isolated prelim inary verified result was Culture In Progress on 12/11/2020 at 100 1 CSTPrevious preliminary verified result was No growth a t 24 hours on 12/12/2020 at 070 1 CSTPrevious preliminary verified result was No growth a t 48 hours on 12/13/2020 at 070 1 CSTPrevious preliminary verified result was No growth a t 72 hours on 12/14/2020 at 070 1 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 Blood No organisms No growth Previous Culture-Anaerobic isolated preliminar y (test code = 34927-2) verifi ed result was Culture In Progress on 12/11/2020 at 100 1 CSTPrevious preliminary verified result was No growth a t 24 hours on 12/12/2020 at 070 1 CSTPrevious preliminary verified result was No growth a t 48 hours on 12/13/2020 at 070 1 CSTPrevious preliminary verified result was No growth a t 72 hours on 12/14/2020 at 070 1 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 Lab Interpretation Normal (test code = 59347-0) [facility] GLUCOSE (AUTOMATED)2020-12-16 04:01:00 Test Item Value Reference Range Interpretation Comments POCT GLU (test code = 0364953812) 156 mg/dL 70-110 H Lab Interpretation (test code = Abnormal 53588-0) [facility] GLUCOSE (AUTOMATED)2020-12-16 00:24:00 Test Item Value Reference Range Interpretation Comments POCT GLU (test code = 1836255519) 115 mg/dL 70-110 H Lab Interpretation (test code = Abnormal 47854-0) [facility] CHEST PULMONARY [id number] 23:34:55No pulmonary emboli. No interval change in [...] stableappearance of intra and extrahepatic biliary ductal dilatation.[facility] GLUCOSE (AUTOMATED)2020-12-15 19:28:00 Test Item Value Reference Range Interpretation Comments POCT GLU (test code = 9959807800) 140 mg/dL 70-110 H Lab Interpretation (test code = Abnormal 24015-0) [facility] 15:26:00 Test Item Value Reference Range Interpretation Comments MAGNESIUM (test code = 5115042864) 2.2 mg/dL 1.7-2.4 Lab Interpretation (test code = Normal 01171-1) [facility] GLUCOSE (AUTOMATED)2020-12-15 15:15:00 Test Item Value Reference Range Interpretation Comments POCT GLU (test code = 8429792008) 181 mg/dL 70-110 H Lab Interpretation (test code = Abnormal 95050-8) [facility] METABOLIC PANEL (NA, K, CL, CO2, GLUCOSE, BUN, CREATININE, CA)2020-12-15 13:07:00 Test Item Value Reference Range Interpretation Comments NA (test code = 136 mmol/L 135-145 0449965327) K (test code = 3.6 mmol/L 3.5-5.0 4006641654) CL (test code = 96 mmol/L 98-108 L 8680878853) CO2 TOTAL (test code = 29 mmol/L 23-31 5677078206) AGAP (test code = 2-16 0157100917) BUN (test code = 12 mg/dL 7-23 0195482421) GLUCOSE (test code = 183 mg/dL 70-110 H 3845948887) CREATININE (test code = 0.70 mg/dL 0.60-1.25 1527034153) CALCIUM (test code = 9.2 mg/dL 8.6-10.6 2276008925) eGFR Calculation mL/min/1.73m2 (Non-) (test code = 1231769782) eGFR Calculation mL/min/1.73m2 () (test code = 6166873747) JAMES (test code = JAMES) Association of [...] tests). Lab Interpretation Abnormal (test code = 91496-7) [facility] WITH [id number] 12:32:00 Test Item Value Reference Range Interpretation [...] RDW-SD (test code = 44.4 fL 38.5-51.6 09116-8) RDW-CV (test code = 17.7 % 12.1-15.4 H 788-0) PLT (test code = See_Comment H [Automated 777-3) message] The system which generated this result transmit ronan reference range : 150 - 328 10*3/ ?L. The reference range was not u sed to interpret th is result as normal/abnormal . MPV (test code = 8.1 fL 9.8-13.0 L 75685-2) NRBC/100 WBC (test See_Comment [Automat ed code = 0825289099) message] The system which generated this result transmit ronan reference range : 0.0 - 10.0 /100 WBCs. The reference range was not used to interpret this result as normal/abnormal . NRBC x10^3 (test code <0.01 See_Comment [Auto mated = 5362893955) message] The system which generated this result transmit ronan reference range : 10*3/?L. The reference range was not used to interpret this result as normal/abnormal . GRAN MAT (NEUT) % 74.5 % (test code = 770-8) IMM GRAN % (test code 0.70 % = 5985180617) LYMPH % (test code = 17.4 % 736-9) MONO % (test code = 6.8 % 5905-5) EOS % (test code = 0.2 % 713-8) BASO % (test code = 0.4 % 706-2) GRAN MAT x10^3(ANC) 11.99 10*3/uL 1.99-6.95 H (test code = 5052106797) IMM GRAN x10^3 (test 0.11 10*3/uL 0.00-0.06 H code = 2731369009) LYMPH x10^3 (test code 2.80 10*3/uL 1.09-3.23 = 731-0) MONO x10^3 (test code 1.10 10*3/uL 0.36-1.02 H = 742-7) EOS x10^3 (test code = 0.03 10*3/uL 0.06-0.53 L 711-2) BASO x10^3 (test code 0.06 10*3/uL 0.01-0.09 = 704-7) Lab Interpretation Abnormal (test code = 79222-6) [facility]2020-12-15 04:16:00 Test Item Value Reference Range Interpretation Comments POCT GLU (test code = 4540621746) 200 mg/dL 70-110 H Lab Interpretation (test code = Abnormal 12262-0) [facility]way[facility]ITAMIN B1 (THIAMINE), WHOLE [id number] 00:30:00 Test Item Value Reference Range Interpretation Comments Vitamin B1, Whole 136 nmol/L 70-180 INTERPRETI VE INFORMATION: Blood (test code = Vitamin B 1, Whole Blood 01158-8) This assay júnior ures the concentration o [...] its performance characteristics determined by [facility]. I t has not been cleared or approved by the [place] Food and Drug Administration. This test was performed i n a CLIA certified labor atory and is intended for clinical purposes.Perfor med By: [facility] [address] [place], [place] [address]Y aboratory Director: Namrata Klein MD [facility] GLUCOSE (AUTOMATED)2020-12-14 23:35:00 Test Item Value Reference Range Interpretation Comments POCT GLU (test code = 3627591389) 151 mg/dL 70-110 H Lab Interpretation (test code = Abnormal 11886-9) [facility] GLUCOSE (AUTOMATED)2020-12-14 19:19:00 Test Item Value Reference Range Interpretation Comments POCT GLU (test code = 0709698044) 193 mg/dL 70-110 H Lab Interpretation (test code = Abnormal 71613-8) [facility] GLUCOSE (AUTOMATED)2020-12-14 15:22:00 Test Item Value Reference Range Interpretation Comments POCT GLU (test code = 5723741481) 221 mg/dL 70-110 H Lab Interpretation (test code = Abnormal 61712-7) [facility] GLUCOSE (AUTOMATED)2020-12-14 02:37:00 Test Item Value Reference Range Interpretation Comments POCT GLU (test code = 6922320253) 210 mg/dL 70-110 H Lab Interpretation (test code = Abnormal 99846-2) [facility] GLUCOSE (AUTOMATED)2020-12-13 23:33:00 Test Item Value Reference Range Interpretation Comments POCT GLU (test code = 9306291333) 182 mg/dL 70-110 H Lab Interpretation (test code = Abnormal 46357-5) [facility] GLUCOSE (AUTOMATED)2020-12-13 18:09:00 Test Item Value Reference Range Interpretation Comments POCT GLU (test code = 4962190168) 150 mg/dL 70-110 H Lab Interpretation (test code = Abnormal 01336-6) [facility] METABOLIC PANEL (NA, K, CL, CO2, GLUCOSE, BUN, CREATININE, CA)2020-12-13 16:27:00 Test Item Value Reference Range Interpretation Comments NA (test code = 136 mmol/L 135-145 2602676875) K (test code = 3.7 mmol/L 3.5-5.0 5267657417) CL (test code = 96 mmol/L 98-108 L 7842041071) CO2 TOTAL (test code = 29 mmol/L 23-31 1543884726) AGAP (test code = 2-16 2005579872) BUN (test code = 6 mg/dL 7-23 L 4052935421) GLUCOSE (test code = 212 mg/dL 70-110 H 6615905254) CREATININE (test code = 0.61 mg/dL 0.60-1.25 0968187948) CALCIUM (test code = 9.5 mg/dL 8.6-10.6 1087798584) eGFR Calculation mL/min/1.73m2 (Non-) (test code = 1009522465) eGFR Calculation mL/min/1.73m2 () (test code = 0448553708) JAMES (test code = JAMES) Association of [...] tests). Lab Interpretation Abnormal (test code = 92180-9) [facility] WITH [id number] 16:10:00 Test Item Value Reference Range Interpretation [...] RDW-SD (test code = 43.3 fL 38.5-51.6 01887-7) RDW-CV (test code = 16.2 % 12.1-15.4 H 788-0) PLT (test code = See_Comment H [Automated 777-3) message] The sy stem which generated this result transmitted reference range : 150 - 328 10*3/ ?L. The reference r torito was not used to interpret this result as normal/abnormal . MPV (test code = 8.2 fL 9.8-13.0 L 86292-8) NRBC/100 WBC (test See_Comment [Automat ed code = 3704569536) message] The system which generated this result transmitted reference range : 0.0 - 10.0 /100 WBCs. The refer ence range was not u sed to interpret th is result as normal/abnormal . NRBC x10^3 (test code <0.01 See_Comment [Auto mated = 5367401473) message] The s ystem which generated this result transmitted reference range : 10*3/?L. The reference range was not used to interpret this result as normal/abnormal . GRAN MAT (NEUT) % 86.2 % (test code = 770-8) IMM GRAN % (test code 0.70 % = 6706788447) LYMPH % (test code = 10.2 % 736-9) MONO % (test code = 2.5 % 5905-5) EOS % (test code = 0.1 % 713-8) BASO % (test code = 0.3 % 706-2) GRAN MAT x10^3(ANC) 9.61 10*3/uL 1.99-6.95 H (test code = 5553436319) IMM GRAN x10^3 (test 0.08 10*3/uL 0.00-0.06 H code = 9436635751) LYMPH x10^3 (test code 1.14 10*3/uL 1.09-3.23 = 731-0) MONO x10^3 (test code 0.28 10*3/uL 0.36-1.02 L = 742-7) EOS x10^3 (test code = <0.03 0.06-0.53 L 711-2) BASO x10^3 (test code 0.03 10*3/uL 0.01-0.09 = 704-7) Lab Interpretation Abnormal (test code = 02844-3) [facility]2020-12-13 14:16:00 Test Item Value Reference Range Interpretation Comments POCT GLU (test code = 8078712748) 236 mg/dL 70-110 H Lab Interpretation (test code = Abnormal 96455-9) [facility] ONLY COVID [id number] 04:58:00COVID DMT InterpretationInterpretation/Recommendations: Molecular NAAT Tests for [...] COVID-19 testing the patient has had at [facility], including molecular NAAT testing (more commonly known as PCR testing and Rapid ID Now testing) and antibody testing. It does not take into account any testingthat a patient has had outside of the [facility] medical record. [facility] LABORATORY SERVICESCOVID BwhbsvuWHCA-PyN-8 Rapid ID NOW (no units) ? ? Date ? Value ? 12/11/2020 ? Not Detected ? ? ? 11/16/2020 ? Not Detected ? ? ? 08/21/2020 ? Not Detected ? [facility] 2020-12-13 03:11:00 Test Item Value Reference Range Interpretation Comments POCT GLU (test code = 8993077266) 171 mg/dL 70-110 H Lab Interpretation (test code = Abnormal 82697-1) [facility] GLUCOSE (AUTOMATED)2020-12-13 00:00:00 Test Item Value Reference Range Interpretation Comments POCT GLU (test code = 1668936553) 118 mg/dL 70-110 H Lab Interpretation (test code = Abnormal 55403-7) [facility]2020-12-12 20:29:00 Test Item Value Reference Range Interpretation Comments POCT GLU (test code = 5357463265) 173 mg/dL 70-110 H Lab Interpretation (test code = Abnormal 56543-1) [facility]wayUS ABDOMEN [id number] 19:56:17 1. ?Hepatic steatosis. However, limited evaluation [...] main portal veinwasevaluated with color Doppler imaging. [employer] images were obtainedfor the record. COMPARISON: Ultrasound [...] normal where visualized. SPLEEN:No images were obtained. Lamb, Radiant Results Inft User - 12/12/2020 1:57 PM CSTEXAM: US ABDOMEN LIMITEDHISTORY: 70 years-old male with RUQ ultrasound to assess for common bileduct dilation .TECHNIQUE: Limited abdominal ultrasound focused on the liver, biliarysystem, pancreas, and spleen was performed. The main portal vein wasevaluated with color Doppler imaging. [employer] images wereobtainedfor the record.COMPARISON: Ultrasound abdomen 11/17/2028. [...] abovereport.[facility]2020-12-12 19:24:00 Test Item Value Reference Range Interpretation Comments POCT GLU (test code = 4958956158) 230 mg/dL 70-110 H Lab Interpretation (test code = Abnormal 85329-6) [facility]wayXR CHEST 1 [id number] 15:16:46 Low lung volumes with mild perihilar [...] report.[facility]2020-12-12 14:34:00 Test Item Value Reference Range Interpretation Comments POCT GLU (test code = 0010084251) 225 mg/dL 70-110 H Lab Interpretation (test code = Abnormal 99816-8) [facility]wayURINE [id number] 13:28:00 Test Item Value Reference Range Interpretation Comments URINE CULTURE (test < 10,000 CFU/mL mixed code = 630-4) aerobic organisms - suggests endogenous microbial contamination [facility]wayBasic Metabolic Panel (NA, K, CL, CO2, GLUCOSE, BUN, CREATININE, CA)2020-12-12 10:05:00 Test Item Value Reference Range Interpretation Comments NA (test code = 136 mmol/L 135-145 7867370386) K (test code = 3.5 mmol/L 3.5-5.0 8926698982) CL (test code = 100 mmol/L 98-108 5670707073) CO2 TOTAL (test code = 31 mmol/L 23-31 1577384139) AGAP (test code = 2-16 6605134545) BUN (test code = 7 mg/dL 7-23 1100702144) GLUCOSE (test code = 259 mg/dL 70-110 H 6612251552) CREATININE (test code = 0.63 mg/dL 0.60-1.25 2660262088) CALCIUM (test code = 8.5 mg/dL 8.6-10.6 L 4372599961) eGFR Calculation mL/min/1.73m2 (Non-) (test code = 3844051071) eGFR Calculation mL/min/1.73m2 () (test code = 9028573776) JAMES (test code = JAMES) Association of [...] tests). Lab Interpretation Abnormal (test code = 65309-6) [facility] LakewayMagnesium [id number] 10:05:00 Test Item Value Reference Range Interpretation Comments MAGNESIUM (test code = 1867206646) 1.9 mg/dL 1.7-2.4 Lab Interpretation (test code = Normal 28352-6) [facility] with Mczubwmyykfh7926-88-34 09:48:00 Test Item Value Reference Range Interpretation [...] RDW-SD (test code = 46.0 fL 38.5-51.6 64010-5) RDW-CV (test code = 16.1 % 12.1-15.4 H 788-0) PLT (test code = See_Comment H [Automated 777-3) message] The sy stem which generated this result transmitted reference range : 150 - 328 10*3/ ?L. The reference r torito was not used to interpret this result as normal/abnormal . MPV (test code = 8.6 fL 9.8-13.0 L 23581-6) NRBC/100 WBC (test See_Comment [Automat ed code = 2747358943) message] The system which generated this result transmitted reference range : 0.0 - 10.0 /100 WBCs. The refer ence range was not u sed to interpret th is result as normal/abnormal . NRBC x10^3 (test code <0.01 See_Comment [Auto mated = 0653522178) message] The s ystem which generated this result transmitted reference range : 10*3/?L. The reference range was not used to interpret this result as normal/abnormal . GRAN MAT (NEUT) % 70.2 % (test code = 770-8) IMM GRAN % (test code 0.30 % = 6026579796) LYMPH % (test code = 18.8 % 736-9) MONO % (test code = 5.0 % 5905-5) EOS % (test code = 5.2 % 713-8) BASO % (test code = 0.5 % 706-2) GRAN MAT x10^3(ANC) 6.05 10*3/uL 1.99-6.95 (test code = 0107719265) IMM GRAN x10^3 (test 0.03 10*3/uL 0.00-0.06 code = 8137311498) LYMPH x10^3 (test code 1.62 10*3/uL 1.09-3.23 = 731-0) MONO x10^3 (test code 0.43 10*3/uL 0.36-1.02 = 742-7) EOS x10^3 (test code = 0.45 10*3/uL 0.06-0.53 711-2) BASO x10^3 (test code 0.04 10*3/uL 0.01-0.09 = 704-7) Lab Interpretation Abnormal (test code = 94761-3) [facility]2020-12-12 03:42:00 Test Item Value Reference Range Interpretation Comments POCT GLU (test code = 196 mg/dL 70-110 H Notifi ed Provider [id number]) Lab Interpretation (test Abnormal code = 29519-0) [facility]21-[facility]-02 02:24:00 Test Item Value Reference Range Interpretation Comments FOLATE SER (test code = 6348243822) 5.8 ng/mL 3.0-20.0 Lab Interpretation (test code = Normal 69418-6) [facility]wayVITAMIN B12, [id number] 00:55:00 Test Item Value Reference Range Interpretation Comments VIT B12 (test code = 844 pg/mL 240-930 0046373191) JAMES (test code = JAMES) Biotin has been reported to cause a positive bias, interpret results relative to patient's use of biotin. Lab Interpretation (test Normal code = 89652-1) [facility]2020-12-12 00:14:00 Test Item Value Reference Range Interpretation Comments POCT GLU (test code = 9508963673) 164 mg/dL 70-110 H Lab Interpretation (test code = Abnormal 37354-0) [facility]wayCREATINE [id number] 23:42:00 Test Item Value Reference Range Interpretation Comments CK (test code = 8890355674) <20 33-194 L Lab Interpretation (test code = Abnormal 02267-8) [facility]wayTHYROID STIMULATING [id number] 23:17:00 Test Item Value Reference Range Interpretation Comments TSH (test code = See_Comment Biotin has been 9976668199) reported to cau se a negative bias, interpret resul ts relative to pat ient's use of biotin. [Automated mess age] The system Jamplify h generated this result transmitted ref erence range: 0.45 - 4 .70 mIU/L. The refe rence range was not u sed to interpret this result as normal/abnor mal. Lab Interpretation (test Normal code = 13582-2) [facility] LakewayXR HIPS 3 VW [id number] 21:41:53No appreciable fracture lines. RL: 6200 ICAL [...] No osseous erosions.IMPRESSIONNo appreciable fracture lines.RL: 6200 [facility]:00[facility]00 Test Item Value Reference Range Interpretation Comments Procalcitonin (test 0.13 ng/mL <0.07 H code = 2364456791) JAMES (test code = JAMES) INTERPRETATION OF [...] lung abscess/empyema. For further information please refer to:[email or web address] Lab Interpretation Abnormal (test code = 38869-3) [facility]wayPOKY [facility]SE (AUTOMATED)2020-12-11 19:07:00 Test Item Value Reference Range Interpretation Comments POCT GLU (test code = 5863814573) 274 mg/dL 70-110 H Lab Interpretation (test code = Abnormal 12730-2) [facility]wayMAGNESIUM2021-03-01 18:31:00 Test Item Value Reference Range Interpretation Comments MAGNESIUM (test code = 0338310884) 1.9 mg/dL 1.7-2.4 Lab Interpretation (test code = Normal 52240-1) [facility]wayFERRITIN [id number] 18:31:00 Test Item Value Reference Range Interpretation Comments FERRITIN (test code = 178.0 ng/mL 18.0-464.0 3812189166) JAMES (test code = JAMES) Biotin has been reported to cause a negative bias, interpret results relative to patient's use of biotin. Lab Interpretation (test Normal code = 04949-2) [facility] HEAD WO [id number] 14:36:47 No acute intracranial abnormality. Dilated ventricles [...] abovereport.[facility]wayURINALYSIS2021-03-01 14:28:00 Test Item Value Reference Range Interpretation Comments APPEARANCE (test code = Clear Clear 4492993331) COLOR (test code = Yellow Yellow 0008527451) PH (test code = 4.8-8.0 0108574682) SP GRAVITY (test code = 1.003-1.030 2937266370) GLU U QUAL (test code = 500 mg/dL Normal A 7226295118) BLOOD (test code = Negative Negative 5903478314) KETONES (test code = 5 mg/dL Negative A 7278392128) PROTEIN (test code = Negative Negative 2887-8) UROBILIN (test code = Normal Normal 7963977914) BILIRUBIN (test code = Negative Negative 8120337774) NITRITE (test code = Negative Negative 4394507223) LEUK RYAN (test code = Negative Negative 7715695023) RBC/HPF (test code = See_Comment [Autom ated message] 8719887951) The system Data[employer] generated this result transmit ronan reference range : 0 - 3 HPF. The refe rence range was not u sed to interpret th is result as normal/abnormal . WBC/HPF (test code = See_Comment [Autom ated message] 8070605952) The system [employer] generated this result transmit ronan reference range : 0 - 5 HPF. The refe rence range was not u sed to interpret th is result as normal/abnormal . BACTERIA (test code = Negative Negative 3885625824) MUCOUS (test code = Slight Negative LPF A 2086895180) SQ EPITH (test code = HPF 2351441148) Lab Interpretation (test Abnormal code = 08120-5) [facility]wayCOVID-[facility] (ID NOW RAPID TESTING)2020-12-11 13:10:00 Test Item Value Reference Range Interpretation Comments SARS-CoV-2 Rapid ID NOW Not Detected Not Detected (test code = 03499-8) JAMES (test code = JAMES) ID NOW COVID-19 Assay is an isothermal nucleic acid amplification test intended for the qualitative detection of nucleic acid from SARS-CoV-2 viral RNA in nasopharyngeal ([employer]ATIONS MANAGER) specimens. It is used under [...] indicated. Lab Interpretation Normal (test code = 60271-5) [facility]. METABOLIC PANEL (47313)2020-12-11 12:29:00 Test Item Value Reference Range Interpretation Comments NA (test code = 136 mmol/L 135-145 9980937157) K (test code = 3.5 mmol/L 3.5-5.0 1572889778) CL (test code = 95 mmol/L 98-108 L 2639470888) CO2 TOTAL (test code = 35 mmol/L 23-31 H 9020721717) AGAP (test code = 2-16 5069184448) BUN (test code = 9 mg/dL 7-23 7555620674) GLUCOSE (test code = 329 mg/dL 70-110 H 7395958283) CREATININE (test code = 0.72 mg/dL 0.60-1.25 0489777703) TOTAL BILI (test code = 0.6 mg/dL 0.1-1.7 7628309419) CALCIUM (test code = 9.0 mg/dL 8.6-10.6 3354046623) T PROTEIN (test code = 6.8 g/dL 6.3-8.2 3016997404) ALBUMIN (test code = 3.8 g/dL 3.5-5.0 6652292748) ALK PHOS (test code = 288 U/L 34-122 H 4983271655) ALTv (test code = 46 U/L 5-50 1742-6) AST(SGOT) (test code = 38 U/L 13-40 5610665414) eGFR Calculation mL/min/1.73m2 (Non-) (test code = 5440382878) eGFR Calculation mL/min/1.73m2 () (test code = 3999292566) JAMES (test code = JAMES) Association of [...] tests). Lab Interpretation Abnormal (test code = 64498-8) [facility] LakewayLactic Acid Whole [id number] 12:23:00 Test Item Value Reference Range Interpretation Comments LACTIC ACID (test code = 2.09 mmol/L 0.50-2.20 4864721305) Lab Interpretation (test code = Normal 72882-5) [facility] WITH [id number] 12:17:00 Test Item Value Reference Range Interpretation Comments WBC (test code = See_Comment H [Automated 3803-2) message] The sy stem which generated this result transmitted reference range : 4.20 - 10.70 10*3/?L. The reference range was not used to interpret this result as normal/abnormal . RBC (test code = See_Comment [Automated 239-8) message] The sy stem which [...] RDW-SD (test code = 44.9 fL 38.5-51.6 50551-7) RDW-CV (test code = 15.9 % 12.1-15.4 H 788-0) PLT (test code = See_Comment H [Automated 777-3) message] The sy stem which generated this result transmitted reference range : 150 - 328 10*3/ ?L. The reference r torito was not used to interpret this result as normal/abnormal . MPV (test code = 8.3 fL 9.8-13.0 L 89661-2) NRBC/100 WBC (test See_Comment [Automat ed code = 4157074816) message] The system which generated this result transmitted reference range : 0.0 - 10.0 /100 WBCs. The refer ence range was not u sed to interpret th is result as normal/abnormal . NRBC x10^3 (test code <0.01 See_Comment [Auto mated = 2660833406) message] The s ystem which generated this result transmitted reference range : 10*3/?L. The reference range was not used to interpret this result as normal/abnormal . GRAN MAT (NEUT) % 77.9 % (test code = 770-8) IMM GRAN % (test code 0.50 % = 7262947163) LYMPH % (test code = 12.2 % 736-9) MONO % (test code = 5.2 % 5905-5) EOS % (test code = 3.7 % 713-8) BASO % (test code = 0.5 % 706-2) GRAN MAT x10^3(ANC) 9.57 10*3/uL 1.99-6.95 H (test code = 5285071733) IMM GRAN x10^3 (test 0.06 10*3/uL 0.00-0.06 code = 5212156739) LYMPH x10^3 (test code 1.50 10*3/uL 1.09-3.23 = 731-0) MONO x10^3 (test code 0.64 10*3/uL 0.36-1.02 = 742-7) EOS x10^3 (test code = 0.46 10*3/uL 0.06-0.53 711-2) BASO x10^3 (test code 0.06 10*3/uL 0.01-0.09 = 704-7) Lab Interpretation Abnormal (test code = 88654-2) [facility]wayLAB ONLY COVID [id number] 18:43:00COVID DMT InterpretationInterpretation/Recommendations: Molecular NAAT Test Results [...] a nasopharyngeal sample, there is approximately a dmg-nj-myjfb chance that the patient was infected and [...] based upon aggregate data pooled from the [facility] medical recordincluding both current and prior COVID-19 related testing results for the following tests offered atour institution:A. Tests for the Identification of SARS-CoV-2 RNA:SARS-CoV-2 PCR assays including [place] Aptima, T[place]ite Fusion, Barrett RealTime, and [employer] Xpert Xpress. SARS-CoV-2 Rapid ID NOW by the ID NOW assay. ? B. Tests for the Identification of SARS-CoV-2 Antibodies: Chemiluminescent immunoassays including Access SARS-CoV-2 IgM (DXI 600), PresentainS Emkf-BCQT-TxY-2 IgG (Vitros 5600 and Vitros 3600), and Barrett SARS-CoV-2 IgG (BUSINESS RECORDS MANAGER I System). These interpretation comments assume that only the above testing was utilized and that the approved acceptable specimen type(s) were used for a given test. These interpretations are autopopulated into [employer] based on computerized algorithms matching an interpretation code number to the patient's set of test results. While a clinical pathologist evaluates the combinations for clinical accuracy, clinical correlation is recommended as it may not take into account very remote prior testing. Furthermore, it does not consider testing a patient may have had outside of the [facility] system. Additionally, it should be noted that the computerized algorithm treats the results for PCR testing and Rapid ID NOW testing (also PCR) synonymously, and thus, refers to both testing methodologies as PCR tests. Given that the sensitivity of [facility]'s Rapid ID NOW testing platform [...] pathogen panel may be beneficialin this setting. [facility] LABORATORY SERVICESCOVID WknvtfhRYSE-IqQ-1 Rapid ID NOW (no units) ? ? Date ? Value ? 08/21/2020 ? Not Detected ? [facility] SERVICESUnVal[facility]2020-08-23 18:25:00 Test Item Value Reference Range Interpretation Comments POCT GLU (test code = 1972997814) 297 mg/dL 70-110 H Lab Interpretation (test code = Abnormal 84167-8) [facility] GLUCOSE (AUTOMATED)2020-08-23 14:25:00 Test Item Value Reference Range Interpretation Comments POCT GLU (test code = 1604615236) 181 mg/dL 70-110 H Lab Interpretation (test code = Abnormal 14411-2) [facility] Metabolic Panel (NA, K, CL, CO2, GLUCOSE, BUN, CREATININE, CA)2020-08-23 11:45:00 Test Item Value Reference Range Interpretation Comments NA (test code = 132 mmol/L 135-145 L 0959068682) K (test code = 4.0 mmol/L 3.5-5 5907161556) CL (test code = 96 mmol/L 98-108 L 1638390664) CO2 TOTAL (test code = 33 mmol/L 23-31 H 9998871612) AGAP (test code = 2-16 9277869746) BUN (test code = 9 mg/dL 7-23 4354431844) GLUCOSE (test code = 176 mg/dL 70-110 H 4855244408) CREATININE (test code = 0.66 mg/dL 0.6-1.25 9047627951) CALCIUM (test code = 8.5 mg/dL 8.6-10.6 L 1096071388) eGFR Calculation mL/min/1.73m2 (Non-) (test code = 7380796511) eGFR Calculation mL/min/1.73m2 () (test code = 1356707900) JAMES (test code = JAMES) Association of [...] tests). Lab Interpretation Abnormal (test code = 16564-9) [facility] LakewayMagnesium [id number] 11:45:00 Test Item Value Reference Range Interpretation Comments MAGNESIUM (test code = 6025207598) 2.0 mg/dL 1.7-2.4 Lab Interpretation (test code = Normal 31607-5) [facility] with Zhndcqvscimo3063-92-43 11:38:00 Test Item Value Reference Range Interpretation Comments WBC (test code = See_Comment [Automated 6472-2) message] The sy stem which generated this result transmitted reference range : 4.20 - 10.70 10*3/?L. The reference range was not used to interpret this result as normal/abnormal . RBC (test code = See_Comment [Automated 720-3) message] The sy stem which generated this [...] RDW-SD (test code = 41.8 fL 38.5-51.6 48255-5) RDW-CV (test code = 14.3 % 12.1-15.4 788-0) PLT (test code = See_Comment H [Automated 777-3) message] The sy stem which generated this result transmitted reference range : 150 - 328 10*3/ ?L. The reference r torito was not used to interpret this result as normal/abnormal . MPV (test code = 8.0 fL 9.8-13 L 29449-4) NRBC/100 WBC (test See_Comment [Automat ed code = 2938658826) message] The system which generated this result transmitted reference range : 0.0 - 10.0 /100 WBCs. The refer ence range was not u sed to interpret th is result as normal/abnormal . NRBC x10^3 (test code <0.01 See_Comment [Auto mated = 3143151494) message] The s ystem which generated this result transmitted reference range : 10*3/?L. The reference range was not used to interpret this result as normal/abnormal . GRAN MAT (NEUT) % 61.5 % (test code = 770-8) IMM GRAN % (test code 2.00 % = 4683062969) LYMPH % (test code = 25.5 % 736-9) MONO % (test code = 6.3 % 5905-5) EOS % (test code = 3.7 % 713-8) BASO % (test code = 1.0 % 706-2) GRAN MAT x10^3(ANC) 5.29 10*3/uL 1.99-6.95 (test code = 3392531829) IMM GRAN x10^3 (test 0.17 10*3/uL 0-0.06 H code = 4383879884) LYMPH x10^3 (test code 2.19 10*3/uL 1.09-3.23 = 731-0) MONO x10^3 (test code 0.54 10*3/uL 0.36-1.02 = 742-7) EOS x10^3 (test code = 0.32 10*3/uL 0.06-0.53 711-2) BASO x10^3 (test code 0.09 10*3/uL 0.01-0.09 = 704-7) Lab Interpretation Abnormal (test code = 86610-6) [facility] GLUCOSE (AUTOMATED)2020-08-23 10:22:00 Test Item Value Reference Range Interpretation Comments POCT GLU (test code = 9487393117) 164 mg/dL 70-110 H Lab Interpretation (test code = Abnormal 10327-2) [facility] GLUCOSE (AUTOMATED)2020-08-23 05:56:00 Test Item Value Reference Range Interpretation Comments POCT GLU (test code = 3047043718) 242 mg/dL 70-110 H Lab Interpretation (test code = Abnormal 74373-3) [facility] GLUCOSE (AUTOMATED)2020-08-23 03:02:00 Test Item Value Reference Range Interpretation Comments POCT GLU (test code = 9980717060) 210 mg/dL 70-110 H Lab Interpretation (test code = Abnormal 87153-4) [facility] GLUCOSE (AUTOMATED)2020-08-22 23:40:00 Test Item Value Reference Range Interpretation Comments POCT GLU (test code = 3832666793) 267 mg/dL 70-110 H Lab Interpretation (test code = Abnormal 13897-6) [facility] GLUCOSE (AUTOMATED)2020-08-22 19:08:00 Test Item Value Reference Range Interpretation Comments POCT GLU (test code = 8805214336) 191 mg/dL 70-110 H Lab Interpretation (test code = Abnormal 79646-1) [facility] GLUCOSE (AUTOMATED)2020-08-22 13:50:00 Test Item Value Reference Range Interpretation Comments POCT GLU (test code = 5964269860) 174 mg/dL 70-110 H Lab Interpretation (test code = Abnormal 86412-5) [facility]wayURINE [id number] 12:59:00 Test Item Value Reference Range Interpretation Comments URINE CULTURE (test No aerobic growth (< code = 630-4) 1000 CFU/mL) [facility] with Pfapljsfntav5781-79-77 11:28:00 Test Item Value Reference Range Interpretation [...] RDW-SD (test code = 42.5 fL 38.5-51.6 03078-2) RDW-CV (test code = 14.5 % 12.1-15.4 788-0) PLT (test code = See_Comment H [Automated 777-3) message] The sy stem which generated this result transmitted reference range : 150 - 328 10*3/ ?L. The reference r torito was not used to interpret this result as normal/abnormal . MPV (test code = 8.0 fL 9.8-13 L 67797-0) NRBC/100 WBC (test See_Comment [Automat ed code = 9727665597) message] The system which generated this result transmitted reference range : 0.0 - 10.0 /100 WBCs. The refer ence range was not u sed to interpret th is result as normal/abnormal . NRBC x10^3 (test code <0.01 See_Comment [Auto mated = 4826780396) message] The s ystem which generated this result transmitted reference range : 10*3/?L. The reference range was not used to interpret this result as normal/abnormal . GRAN MAT (NEUT) % 69.1 % (test code = 770-8) IMM GRAN % (test code 2.20 % = 4463346872) LYMPH % (test code = 20.9 % 736-9) MONO % (test code = 5.8 % 5905-5) EOS % (test code = 1.0 % 713-8) BASO % (test code = 1.0 % 706-2) GRAN MAT x10^3(ANC) 6.51 10*3/uL 1.99-6.95 (test code = 7657886496) IMM GRAN x10^3 (test 0.21 10*3/uL 0-0.06 H code = 4317389643) LYMPH x10^3 (test code 1.97 10*3/uL 1.09-3.23 = 731-0) MONO x10^3 (test code 0.55 10*3/uL 0.36-1.02 = 742-7) EOS x10^3 (test code = 0.09 10*3/uL 0.06-0.53 711-2) BASO x10^3 (test code 0.09 10*3/uL 0.01-0.09 = 704-7) BASO STIPPLING (test Present A code = 703-9) BANDS (test code = Increased A 8816015633) TOXIC CHANGES (test Present A code = 803-7) Lab Interpretation Abnormal (test code = 09465-0) [facility] Metabolic Panel (NA, K, CL, CO2, GLUCOSE, BUN, CREATININE, CA)2020-08-22 11:12:00 Test Item Value Reference Range Interpretation Comments NA (test code = 135 mmol/L 135-145 3496447642) K (test code = 3.6 mmol/L 3.5-5 4461909728) CL (test code = 99 mmol/L 98-108 2604647110) CO2 TOTAL (test code = 31 mmol/L 23-31 4601691594) AGAP (test code = 2-16 5089123063) BUN (test code = 9 mg/dL 7-23 9833212542) GLUCOSE (test code = 198 mg/dL 70-110 H 8494221733) CREATININE (test code = 0.72 mg/dL 0.6-1.25 9740901760) CALCIUM (test code = 8.3 mg/dL 8.6-10.6 L 6997419323) eGFR Calculation mL/min/1.73m2 (Non-) (test code = 3922081920) eGFR Calculation mL/min/1.73m2 () (test code = 6407079916) JAMES (test code = JAMES) Association of [...] tests). Lab Interpretation Abnormal (test code = 29187-4) [facility]wayMagnesium Amwfe2446-91-68 11:12:00 Test Item Value Reference Range Interpretation Comments MAGNESIUM (test code = 9962912368) 2.0 mg/dL 1.7-2.4 Lab Interpretation (test code = Normal 54844-2) [facility] (Total Cholesterol, Triglycerides, HDL) - [id number] 11:12:00 Test Item Value Reference Range Interpretation Comments CHOL (test code = 155 mg/dL 120-200 2394412635) HDL (test code = 42 mg/dL >40 5594739991) HDLC RATIO (test code = See_Comment [Au tomated message] 5489289011) The system [employer] generated this result transmit ronan reference range : <=5.0. The refe rence range was not u sed to interpret th is result as normal/abnormal . TRIG (test code = 186 mg/dL 30-170 H 9953650888) LDL CHOL (test code = 76 mg/dL See_Comment [Auto mated message] 98747-3) The system [employer] generated this result transmit ronan reference range : <=160. The refe rence range was not u sed to interpret th is result as normal/abnormal . VLDL (test code = 37 mg/dL 5-60 9499557141) Lab Interpretation (test Abnormal code = 71192-2) [facility]wayHEPATIC FUNCTION PANEL (57748) (ALB,T.PRO,BILI T,BU/BC,ALT,AST,ALK PHOS)2020-08-22 11:12:00 Test Item Value Reference Range Interpretation Comments TOTAL BILI (test code = 6739772494) 0.6 mg/dL 0.1-1.1 BILI UNCON (test code = 8994646547) 0.2 mg/dL 0.1-1.1 BILI CONJ (test code = 1827538865) 0.0 mg/dL 0-0.3 T PROTEIN (test code = 2264085471) 6.0 g/dL 6.3-8.2 L ALBUMIN (test code = 7425470768) 2.8 g/dL 3.5-5 L ALK PHOS (test code = 5148200932) 222 U/L 34-122 H ALTv (test code = 1742-6) 27 U/L 5-50 AST(SGOT) (test code = 6196686316) 30 U/L 13-40 Lab Interpretation (test code = Abnormal 92914-0) [facility]2020-08-22 10:11:00 Test Item Value Reference Range Interpretation Comments POCT GLU (test code = 1849917222) 196 mg/dL 70-110 H Lab Interpretation (test code = Abnormal 02812-5) [facility] GLUCOSE (AUTOMATED)2020-08-22 07:15:00 Test Item Value Reference Range Interpretation Comments POCT GLU (test code = 9932144840) 183 mg/dL 70-110 H Lab Interpretation (test code = Abnormal 52319-9) [facility] GLUCOSE (AUTOMATED)2020-08-22 02:30:00 Test Item Value Reference Range Interpretation Comments POCT GLU (test code = 0557904299) 295 mg/dL 70-110 H Lab Interpretation (test code = Abnormal 32755-9) [facility] GLUCOSE (AUTOMATED)2020-08-21 23:46:00 Test Item Value Reference Range Interpretation Comments POCT GLU (test code = 4828305346) 258 mg/dL 70-110 H Lab Interpretation (test code = Abnormal 09851-6) [facility] LakewayC-REACTIVE [id number] 18:50:00 Test Item Value Reference Range Interpretation Comments CRP (test code = 6326242515) 15.5 mg/dL <0.8 H Lab Interpretation (test code = Abnormal 21567-4) [facility] GLUCOSE (AUTOMATED)2020-08-21 18:21:00 Test Item Value Reference Range Interpretation Comments POCT GLU (test code = 3156267976) 297 mg/dL 70-110 H Lab Interpretation (test code = Abnormal 76111-7) [facility] LakewayETHANOL2020-11-09 16:24:00 Test Item Value Reference Range Interpretation Comments ALCOHOL (test code = <10 mg/dL 3333613430) JAMES (test code = Toxic Greater than or JAMES) equal to 80 mg/dL. NOTE: Whole blood values are approximately 10% to 15% lower than serum and plasma. [facility] LakewayGALV/CLC ONLY - URINE DRUG (IMMUNOASSAY) - 4 ER [id number] 15:36:00 Test Item Value Reference Range Interpretation Comments AMPHET (test code = Negative Negative 1209643768) Cocaine Metabolite (test Negative Negative code = 9091066788) OPIATES (test code = Presumptive Positive Negative A 8977113696) THC (test code = Negative Negative 2214870017) JAMES (test code = JAMES) Urine Drug Cutoff Ranges Amphetamine: ? 1,000 ng/mLCocaine: ? 150 ng/mLOpiates: ? 300 ng/mLCannabinoids: ?50 ng/mL The results are to be used only for medical (i.e., treatment) purposes. Unconfirmed screening results must not be used for non-medical purposes (e.g., employment testing, legal testing). Lab Interpretation (test Abnormal code = 39683-5) [facility]wayGAL[facility] ONLY - SYPHILIS [id number] 15:04:00 Test Item Value Reference Range Interpretation Comments Syphilis IgG/IgM (test Non-reactive Non-reactive code = 60391-1) JAMES (test code = JAMES) Non-reactive - No serologic evidence of T. pallidum infection. Cannot exclude incubating or early syphilis. Submit a second specimen in 2-4 weeks if syphilis is clinically suspected. Equivocal - Further testing to follow. Reactive - Further testing to follow. Lab Interpretation (test Normal code = 57186-6) [facility]wayUrinalysis2020-11-09 14:52:00 Test Item Value Reference Range Interpretation Comments APPEARANCE (test code = Clear Clear 4026388217) COLOR (test code = Yellow Yellow 5308486048) PH (test code = 4.8-8.0 1742759895) SP GRAVITY (test code = 1.003-1.030 8639995616) GLU U QUAL (test code = 500 mg/dL Normal A 8033627842) BLOOD (test code = Negative Negative 0123811743) KETONES (test code = 20 mg/dL Negative A 9495788699) PROTEIN (test code = Negative Negative 2887-8) UROBILIN (test code = Normal Normal 6345731550) BILIRUBIN (test code = Negative Negative 7897522456) NITRITE (test code = Negative Negative 4147968047) LEUK RYAN (test code = Negative Negative 0326755387) RBC/HPF (test code = <1 See_Comment [Autom ated message] 3182284007) The system [employer] generated this result transmit ronan reference range : 0 - 3 HPF. The refe rence range was not u sed to interpret th is result as normal/abnormal . WBC/HPF (test code = See_Comment [Autom ated message] 5598391413) The system [employer] generated this result transmit ronan reference range : 0 - 5 HPF. The refe rence range was not u sed to interpret th is result as normal/abnormal . BACTERIA (test code = Negative Negative 8490982520) MUCOUS (test code = Slight Negative LPF A 0640312949) Lab Interpretation (test Abnormal code = 16103-5) [facility]wayACTIVATED PARTIAL THRMPLAS [id number] 13:45:00 Test Item Value Reference Range Interpretation Comments APTT Patient (test code = See_Comment [ Automated message] 3173-2) The system [employer] generated this result transmitted ref erence range: 26 - 36 Seconds. The re ference range was not u sed to interpret this result as normal/abnor mal. Lab Interpretation (test Normal code = 53282-6) [facility]wayPOCT GLUCOSE (AUTOMATED)2020-08-21 13:45:00 Test Item Value Reference Range Interpretation Comments POCT GLU (test code = 4248849643) 246 mg/dL 70-110 H Lab Interpretation (test code = Abnormal 51677-4) [facility]wayHIV 1/2 AG-AB WITH [id number] 12:32:00 Test Item Value Reference Range Interpretation Comments HIV Negative Negative Semi-quantitative (test code = 63921-9) JAMES (test code = Non-reactive for HIV-1 JAMES) antigen and HIV-1/HIV-2 antibodies. ?No laboratory evidence of HIV infection. ?Repeat in 2-4 weeks if acute HIV infection is suspected. [facility]wayCBC WITH [id number] 12:18:00 Test Item Value Reference Range Interpretation Comments WBC (test code = See_Comment [Automated 0760-2) message] The sy stem which generated this result transmitted reference range : 4.20 - 10.70 10*3/?L. The reference range was not used to interpret this result as normal/abnormal . RBC (test code = See_Comment [Automated 999-5) message] The sy stem which generated this [...] RDW-SD (test code = 44.4 fL 38.5-51.6 72616-0) RDW-CV (test code = 14.5 % 12.1-15.4 788-0) PLT (test code = See_Comment H [Automated 777-3) message] The sy stem which generated this result transmitted reference range : 150 - 328 10*3/ ?L. The reference r torito was not used to interpret this result as normal/abnormal . MPV (test code = 8.5 fL 9.8-13 L 30789-4) NRBC/100 WBC (test See_Comment [Automat ed code = 6600195712) message] The system which generated this result transmitted reference range : 0.0 - 10.0 /100 WBCs. The refer ence range was not u sed to interpret th is result as normal/abnormal . NRBC x10^3 (test code <0.01 See_Comment [Auto mated = 1938508181) message] The s ystem which generated this result transmitted reference range : 10*3/?L. The reference range was not used to interpret this result as normal/abnormal . GRAN MAT (NEUT) % 90.4 % (test code = 770-8) IMM GRAN % (test code 1.30 % = 0351243959) LYMPH % (test code = 7.1 % 736-9) MONO % (test code = 0.5 % 5905-5) EOS % (test code = 0.1 % 713-8) BASO % (test code = 0.6 % 706-2) GRAN MAT x10^3(ANC) 7.74 10*3/uL 1.99-6.95 H (test code = 8167251029) IMM GRAN x10^3 (test 0.11 10*3/uL 0-0.06 H code = 9476550574) LYMPH x10^3 (test code 0.61 10*3/uL 1.09-3.23 L = 731-0) MONO x10^3 (test code 0.04 10*3/uL 0.36-1.02 L = 742-7) EOS x10^3 (test code = <0.03 0.06-0.53 L 711-2) BASO x10^3 (test code 0.05 10*3/uL 0.01-0.09 = 704-7) POLYCHROMASIA (test 2+ See_Comment [Automa ronan code = 83630-8) message] The system which generated this result transmitted reference range : 2+. The referen ce range was not u sed to interpret th is result as normal/abnormal . BANDS (test code = Increased A 0386721959) Lab Interpretation Abnormal (test code = 78577-1) [facility]wayPROCALCITONIN2020-11-09 11:48:00 Test Item Value Reference Range Interpretation Comments Procalcitonin (test 0.36 ng/mL <0.07 H code = 2946111532) JAMES (test code = JAMES) INTERPRETATION OF [...] lung abscess/empyema. For further information please refer to:[email or web address] Lab Interpretation Abnormal (test code = 65340-7) [facility] LakewayLACTATE [id number] 10:53:00 Test Item Value Reference Range Interpretation Comments LDH (test code = 1675607913) 351 U/L 300-600 Lab Interpretation (test code = Normal 43857-2) [facility] LakewaySEDIMENTATION [id number] 10:07:00 Test Item Value Reference Range Interpretation Comments ESR (test code = See_Comment H [Automated message] 4252852450) The system [employer] generated this result transmitted ref erence range: 0 - 10 m m/HR. The reference r torito was not used to interpret this result as normal/abnor mal. Lab Interpretation (test Abnormal code = 37832-5) [facility]wayPOCT GLUCOSE (AUTOMATED)2020-08-21 09:45:00 Test Item Value Reference Range Interpretation Comments POCT GLU (test code = 2135999485) 287 mg/dL 70-110 H Lab Interpretation (test code = Abnormal 58666-9) [facility] LakewayGlycosylated Hemoglobin (A1C)2020-08-21 09:29:00 Test Item Value Reference Range Interpretation Comments HGB A1C (test code = 4548-4) 9.8 % 4-6 H Lab Interpretation (test code = Abnormal 92458-8) [facility]wayCOVID-19 (ID NOW RAPID TESTING)2020-08-21 09:13:00 Test Item Value Reference Range Interpretation Comments SARS-CoV-2 Rapid ID NOW Not Detected Not Detected (test code = 27875-3) JAMES (test code = JAMES) ID NOW COVID-19 Assay is an isothermal nucleic acid amplification test intended for the qualitative detection of nucleic acid from SARS-CoV-2 viral RNA in nasopharyngeal ([employer]) specimens. It is used under [...] indicated. Lab Interpretation Normal (test code = 49032-3) [facility] LakewayProthrombin Time / [id number] 08:59:00 Test Item Value Reference Range Interpretation Comments PROTIME PATIENT (test See_Comment H [Auto mated message] code = 5964-2) The system [email or web address] generated this result transmitted ref erence range: 10.1 - 1 2.6 Seconds. The reference range was not used to int erpret this result as normal/abnormal . INR (test code = 6301-6) Nor mal INR <1.1; Warfarin Therap eutic range 2.0 to 3. 0 or 2.5 to 3.5, dep ending upon the indica tions. Lab Interpretation (test Abnormal code = 93100-9) [facility] LakewayaPTT2020-11-09 08:59:00 Test Item Value Reference Range Interpretation Comments APTT Patient (test code = See_Comment [ Automated message] 3173-2) The system [employer] generated this result transmitted ref erence range: 26 - 36 Seconds. The re ference range was not u sed to interpret this result as normal/abnor mal. Lab Interpretation (test Normal code = 95459-7) [facility]OL[facility] (NA, K, CL, CO2, GLUCOSE, BUN, CREATININE, CA)2020-08-21 08:52:00 Test Item Value Reference Range Interpretation Comments NA (test code = 136 mmol/L 135-145 3145691871) K (test code = 4.3 mmol/L 3.5-5 9014748997) CL (test code = 104 mmol/L 98-108 5219855539) CO2 TOTAL (test code = 24 mmol/L 23-31 7383902055) AGAP (test code = 2-16 2393069133) BUN (test code = 8 mg/dL 7-23 6158425958) GLUCOSE (test code = 308 mg/dL 70-110 H 6369578985) CREATININE (test code = 0.72 mg/dL 0.6-1.25 3867613906) CALCIUM (test code = 7.8 mg/dL 8.6-10.6 L 2727235484) eGFR Calculation mL/min/1.73m2 (Non-) (test code = 5334716020) eGFR Calculation mL/min/1.73m2 () (test code = 1558958869) JAMES (test code = JAMES) Association of [...] tests). Lab Interpretation Abnormal (test code = 87823-6) [facility] LakewayHEPATIC FUNCTION PANEL (00106) (ALB,T.PRO,BILI T,BU/BC,ALT,AST,ALK PHOS)2020-08-21 08:52:00 Test Item Value Reference Range Interpretation Comments TOTAL BILI (test code = 7947720296) 0.8 mg/dL 0.1-1.1 BILI UNCON (test code = 0373839903) 0.3 mg/dL 0.1-1.1 BILI CONJ (test code = 5494880705) 0.0 mg/dL 0-0.3 T PROTEIN (test code = 4092255585) 5.7 g/dL 6.3-8.2 L ALBUMIN (test code = 7506240798) 2.7 g/dL 3.5-5 L ALK PHOS (test code = 8497991157) 245 U/L 34-122 H ALTv (test code = 1742-6) 37 U/L 5-50 AST(SGOT) (test code = 6595532436) 43 U/L 13-40 H Lab Interpretation (test code = Abnormal 38684-1) [facility]
[2023-03-14] MEDS ORDERED: ONDANSETRON 4 MG/2 ML VIAL ONE (03:59)
[2023-03-14] MEDS ORDERED: NA CHLORIDE 0.9% 500 ML ONE (03:59)
[2023-03-14] MEDS ORDERED: HYDROMORPHONE HCL 1 MG/ML INJ ONE (03:59)
[2023-03-14 04:18] LABS: Absolute Lymphocytes (CBC) 2.1 K/uL (0.7-4.9); Hematocrit 40.1 % (39.6-49.0); Lymphocytes % 28.4 % (15.3-44.8); MPV 6.2 fL (7.6-11.3); RBC Red Blood Cell Count 4.88 M/uL (4.33-5.43)
[2023-03-14 04:27] LABS: Albumin 3.3 g/dL (3.4-5.0); Bilirubin Total 0.4 mg/dL (0.2-1.0); Potassium 3.8 mEq/L (3.5-5.1); Protein, Total 7.1 g/dL (6.4-8.2)
--- NOTE | 2023-03-14 04:47 | ER ---
Nurse's Notes [facility] Name: Kiel Ngo Age: 72 yrs Sex: Male : 1950 Arrival Date: 03/14/2023 Time: 02:36 Bed 17 Private MD: Diagnosis: Pain in right leg;Pain in left leg;Low back pain Presentation: 03/14 02:38 Chief complaint: Patient states: right hip and leg pain since running out of pain meds kl x 3 days prior not due for appt or refill until March 18. Coronavirus screen: Vaccine status: Patient reports being unvaccinated. Ebola Screen: Patient negative for fever greater than or equal to 101.5 degrees Fahrenheit, and additional compatible Ebola Virus Disease symptoms. Initial Sepsis Screen: Does the patient meet any 2 criteria? No. Patient's initial sepsis screen is negative. Does the patient have a suspected source of infection? No. Patient's initial sepsis screen is negative. Risk Assessment: Do you want to hurt yourself or someone else? Patient reports no desire to harm self or others. Onset of symptoms was March 10, 2023. 02:38 Method Of Arrival: EMS: [facility] 02:38 Acuity: JOZEF 4 kl Triage Assessment: 02:42 General: Appears in no apparent distress. comfortable, Behavior is calm, cooperative. kl Pain: Complains of pain in right leg Pain currently is 10 out of 10 on a pain scale. EENT: No deficits noted. Neuro: No deficits noted. Cardiovascular: No deficits noted. Respiratory: No deficits noted. GI: No deficits noted. No signs and/or symptoms were reported involving the gastrointestinal system. : No deficits noted. No signs and/or symptoms were reported regarding the genitourinary system. Derm: No deficits noted. No signs and/or symptoms reported regarding the dermatologic system. Musculoskeletal: Reports pain in right leg right hip. Historical: - Allergies: 02:41 Demerol; kl 02:41 metformin; kl 02:41 Morphine; kl - Home Meds: 02:41 hydromorphone 4 mg Oral tab 1 tab three times a day [Active]; Hydroxyzine Oral kl [Active]; Klonopin 2 mg Oral TbDi 2 tabs 4 times a day [Active]; - PMHx: 02:41 Atrial fibrillation; chronic back pain; Chronic right leg pain; neuropathy; kl - PSHx: 02:41 back sx; PANCREAS SX; R. Ankle SX; kl - Immunization history:: Adult Immunizations not up to date. - Social history:: Smoking status: Patient denies any tobacco usage or history of. - Family history:: not pertinent. Screenin:55 [facility] ED Fall Risk Assessment (Adult) History of falling in the last 3 months, kl including since admission No falls in past 3 months (0 pts) Confusion or Disorientation No (0 pts) Intoxicated or Sedated No (0 pts) Impaired Gait Yes (1 pt) Mobility Assist Device Used No (0 pt) Altered Elimination No (0 pt) Score/Fall Risk Level 0 - 2 = Low Risk Oriented to surroundings, Maintained a safe environment. Abuse screen: Denies threats or abuse. Nutritional screening: No deficits noted. Tuberculosis screening: No symptoms or risk factors identified. Assessment: 05:00 Reassessment: Patient appears in no apparent distress at this time. Patient and/or family updated on plan of care and expected duration. Pain level reassessed. Patient is alert, oriented x 3, equal unlabored respirations, skin warm/dry/pink. Patient states feeling better. Patient states symptoms have improved. Vital Signs: 02:38 BP 147 / 92; Pulse 101; Resp 18; Temp 97.3(TE); Pulse Ox 97% on R/A; Weight 40.14 kg kl (M); Height 5 ft. 11 in. ; Pain 10/10; 05:54 BP 148 / 88; Pulse 74; Resp 18; Temp 97.9(TE); Pulse Ox 100% ; kl 02:38 Body Mass Index 12.34 (40.14 kg, 180.34 cm) kl 02:38 Pain Scale: Adult ED Course: 02:37 Patient arrived in ED. sb4 02:38 Stu Banerjee MD is Attending Physician. chetan 02:40 Triage completed. kl 03:25 US Extremity Venous W Compression Otis In Process Unspecified. EDMS 04:05 Lipase Sent. kl 04:05 Comprehensive Metabolic Panel Sent. kl 04:05 CBC with Diff Sent. kl 05:55 No provider procedures requiring assistance completed. IV discontinued, intact, kl bleeding controlled, No redness/swelling at site. Pressure dressing applied. 05:55 Patient has correct armband on for positive identification. Bed in low position. Call light in reach. Side rails up X2. Administered Medications: 04:14 Drug: NS 0.9% IV 500 ml Route: IV; Rate: bolus; Site: left forearm; kl 05:36 Follow up: IV Status: Completed infusion; IV Intake: 500ml kl 04:14 Drug: HYDROmorphone IVP 1 mg Route: IVP; Site: left forearm; kl 05:36 Follow up: Response: No adverse reaction; Pain is decreased kl 04:14 Drug: Ondansetron IVP 4 mg Route: IVP; Site: left forearm; kl 05:36 Follow up: Response: No adverse reaction; Marked relief of symptoms kl Intake: 05:36 IV: 500ml; Total: 500ml. Outcome: 04:47 Discharge ordered by . chetan 05:55 Discharged to home via ambulance. 05:55 Condition: improved 05:55 Discharge instructions given to patient, Instructed on discharge instructions, follow up and referral plans. medication usage, Demonstrated understanding of instructions, follow-up care, medications, Prescriptions given X 1. 06:29 Patient left the ED. Signatures: Dispatcher [employer] EDLetty Bruce RN RN kl Anderson, Corey, MD MD cha Brown, Sophia, PAJono PAJono sb4
--- NOTE | 2023-03-14 04:48 | EDPHYS ---
Physician Documentation [facility] Name: Kiel Ngo Age: 72 yrs Sex: Male : 1950 Arrival Date: 03/14/2023 Time: 02:36 Bed 17 Private MD: LAURIE Physician Stu Banerjee HPI: 03/14 02:56 This 72 yrs old Male presents to ER via EMS with complaints of leg pain. [facility] 02:56 The patient presents with decreased range of motion, pain. The complaints affect the [facility] right leg and left leg. 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 Onset: The symptoms/episode began/occurred 2 day(s) ago. Modifying factors: The symptoms are alleviated by nothing. remaining still, the symptoms are aggravated by movement. The patient presents with pain that is chronic. The pain does not radiate. Historical: - Allergies: 02:41 Demerol; kl 02:41 metformin; kl 02:41 Morphine; kl - Home Meds: 02:41 hydromorphone 4 mg Oral tab 1 tab three times a day [Active]; Hydroxyzine Oral kl [Active]; Klonopin 2 mg Oral TbDi 2 tabs 4 times a day [Active]; - PMHx: 02:41 Atrial fibrillation; chronic back pain; Chronic right leg pain; neuropathy; kl - PSHx: 02:41 back sx; PANCREAS SX; R. Ankle SX; kl - Immunization history:: Adult Immunizations not up to date. - Social history:: Smoking status: Patient denies any tobacco usage or history of. - Family history:: not pertinent. ROS: 02:56 Constitutional: Negative for fever, chills, and weight loss, Eyes: Negative for injury, chetan pain, redness, and discharge, ENT: Negative for injury, pain, and discharge, Neck: Negative for injury, pain, and swelling, Cardiovascular: Negative for chest pain, palpitations, and edema, Respiratory: Negative for shortness of breath, cough, wheezing, and pleuritic chest pain, Abdomen/GI: Negative for abdominal pain, nausea, vomiting, diarrhea, and constipation, Back: Negative for injury and pain, : Negative for injury, bleeding, discharge, and swelling, Skin: Negative for injury, rash, and discoloration, Neuro: Negative for headache, weakness, numbness, tingling, and seizure, Psych: Negative for depression, anxiety, suicide ideation, homicidal ideation, and hallucinations, Allergy/Immunology: Negative for hives, rash, and allergies, Endocrine: Negative for neck swelling, polydipsia, polyuria, polyphagia, and marked weight changes, Hematologic/Lymphatic: Negative for swollen nodes, abnormal bleeding, and unusual bruising. 02:56 MS/extremity: Positive for decreased range of motion, pain, tenderness, of the right leg. Exam: 02:56 Constitutional: This is a well developed, well nourished patient who is awake, alert, chetan and in no acute distress. Head/Face: Normocephalic, atraumatic. Eyes: Pupils equal round and reactive to light, extra-ocular motions intact. Lids and lashes normal. Conjunctiva and sclera are non-icteric and not injected. Cornea within normal limits. Periorbital areas with no swelling, redness, or edema. ENT: Nares patent. No nasal discharge, no septal abnormalities noted. Tympanic membranes are normal and external auditory canals are clear. Oropharynx with no redness, swelling, or masses, exudates, or evidence of obstruction, uvula midline. Mucous membranes moist. Neck: Trachea midline, no thyromegaly or masses palpated, and no cervical lymphadenopathy. Supple, full range of motion without nuchal rigidity, or vertebral point tenderness. No Meningismus. Chest/axilla: Normal chest wall appearance and motion. Nontender with no deformity. No lesions are appreciated. Cardiovascular: Regular rate and rhythm with a normal S1 and S2. No gallops, murmurs, or rubs. Normal PMI, no JVD. No pulse deficits. Respiratory: Lungs have equal breath sounds bilaterally, clear to auscultation and percussion. No rales, rhonchi or wheezes noted. No increased work of breathing, no retractions or nasal flaring. Abdomen/GI: Soft, non-tender, with normal bowel sounds. No distension or tympany. No guarding or rebound. No evidence of tenderness throughout. Back: No spinal tenderness. No costovertebral tenderness. Full range of motion. Male : Normal genitalia with no discharge or lesions. Skin: Warm, dry with normal turgor. Normal color with no rashes, no lesions, and no evidence of cellulitis. Neuro: Awake and alert, GCS 15, oriented to person, place, time, and situation. Cranial nerves II-XII grossly intact. Motor strength 5/5 in all extremities. Sensory grossly intact. Cerebellar exam normal. Normal gait. Psych: Awake, alert, with orientation to person, place and time. Behavior, mood, and affect are within normal limits. 02:56 Musculoskeletal/extremity: ROM: limited passive range of motion, limited active range of motion due to pain, in the right leg and left leg, Circulation is intact in all extremities. Sensation intact. Compartment Syndrome exam of affected extremity: is normal. Weight bearing: can bear weight with assistance only, uses walker, DVT Exam: negative Homans' sign noted on exam, no appreciated bluish discoloration, no erythema, no increased warmth, swelling, tenderness, of the right leg. Vital Signs: 02:38 BP 147 / 92; Pulse 101; Resp 18; Temp 97.3(TE); Pulse Ox 97% on R/A; Weight 40.14 kg kl (M); Height 5 ft. 11 in. ; Pain 10/10; 05:54 BP 148 / 88; Pulse 74; Resp 18; Temp 97.9(TE); Pulse Ox 100% ; kl 02:38 Body Mass Index 12.34 (40.14 kg, 180.34 cm) kl 02:38 Pain Scale: Adult kl MDM: 02:38 Patient medically screened. [facility] 03:00 Differential diagnosis: contusion, tendonitis. Data reviewed: vital signs, nurses chetan notes, lab test result(s), radiologic studies, doppler. Consideration of Admission/Observation Escalation of care including admission/observation considered. I considered the following discharge prescriptions or medication management in the emergency department Medications were administered in the Emergency Department. See MAR. Test considered but Not performed: X-ray: no xrays. Historians other than the Patient: EMS: ems, good hx. Care significantly affected by the following chronic conditions: Hypertension, a fib. Counseling: I had a detailed discussion with the patient and/or guardian regarding: the historical points, exam findings, and any diagnostic results supporting the discharge/admit diagnosis, the presence of at least one elevated blood pressure reading (>120/80) during this emergency department visit, lab results, radiology results, the need for outpatient follow up, for definitive care, a family practitioner. 03/14 02:56 Order name: CBC with Diff; Complete Time: 04:26 [facility] 03/14 02:56 Order name: Comprehensive Metabolic Panel; Complete Time: 04:46 [facility] 03/14 02:56 Order name: Lipase; Complete Time: 04:46 [facility] 03/14 02:56 Order name: US Extremity Venous W Compression Otis chetan Administered Medications: 04:14 Drug: NS 0.9% IV 500 ml Route: IV; Rate: bolus; Site: left forearm; kl 05:36 Follow up: IV Status: Completed infusion; IV Intake: 500ml kl 04:14 Drug: HYDROmorphone IVP 1 mg Route: IVP; Site: left forearm; kl 05:36 Follow up: Response: No adverse reaction; Pain is decreased kl 04:14 Drug: Ondansetron IVP 4 mg Route: IVP; Site: left forearm; kl 05:36 Follow up: Response: No adverse reaction; Marked relief of symptoms kl Disposition Summary: 03/14/23 04:47 Discharge Ordered Location: Home [facility] Problem: new chetan Symptoms: have improved chetan Condition: Stable chetan Diagnosis - Pain in right leg chetan - Pain in left leg chetan - Low back pain chetan Followup: chetan - With: Private Physician - When: 2 - 3 days - Reason: Recheck today's complaints, Continuance of care, Re-evaluation by your physician Discharge Instructions: - Discharge Summary Sheet chetan - Chronic Back Pain chetan - Leg Cramps chetan - Musculoskeletal Pain chetan Forms: - Medication Reconciliation Form chetan - Thank You Letter chetan - Antibiotic Education chetan - Prescription Opioid Use chetan Prescriptions: - Cyclobenzaprine 5 mg Oral Tablet - take 1 tablet by ORAL route 3 times per day As needed; 15 tablet; Refills: 0, chetan Product Selection Permitted Signatures: Dispatcher [employer] Letty Mar RN RN kl Anderson, Corey, MD MD chetan
[2023-03-14 06:36] VITALS: BP 148/88; TEMP 97.9; O2SAT 100
--- NOTE | 2023-03-14 12:16 | RAD REPORT ---
EXAM DESCRIPTION: US - Extrem Venous W Compress Otis - 03/14/2023 3:23 am CLINICAL HISTORY: The patient is 72 years old and is Male; PAIN TECHNIQUE: Real-time duplex ultrasound scan of the bilateral lower extremity veins integrating B-mod e two-dimensional vascular structure, Doppler spectral analysis, color flow Doppler imaging and compr ession. COMPARISON: No relevant prior studies available. FINDINGS: Right deep veins: Unremarkable. No DVT in the visualized common femoral, femoral, or p opliteal veins. The veins demonstrate normal color flow, are normally compressible where visualized , with normal phasic flow and/or augmentation response. Left deep veins: Unremarkable. No DVT in the visualized common femoral, femoral, or popliteal v eins. The veins demonstrate normal color flow, are normally compressible where visualized, with nor mal phasic flow and/or augmentation response. Soft tissues: No acute findings. IMPRESSION: No evidence of DVT in the bilateral lower extremity veins. Electronically signed by: Aguila Calabrese MD 03/14/2023 3:53 AM CDT Due to temporary technical issues with the PACS/Fluency reporting system, reports are being signed by the in house radiologist without review as a courtesy to ensure prompt reporting. The interpreting r adiologist is fully responsible for the content of the report.
== END 2023-03-14 06:29 | disposition home or self-care (01) ==
LOC: ER 02:36
DX: M79.604 Pain in right leg (principal); M79.605 Pain in left leg; M54.50 Low back pain, unspecified; Z88.5 Allergy status to narcotic agent; Z88.8 Allergy status to other drugs, medicaments and biological substances
CPT/HCPCS: 96361; 85025; 36415; 83690; 80053; 93970; 96375; 96374; 99284; J1170; J2405; J7040

== ENCOUNTER 2023-04-26 03:21 | Emergency (ER) | payer OTHER ==
--- OUTSIDE RECORDS SUMMARY | 2023-04-26 03:29 | XMS REPORT | Continuity of Care Document ---
:1950 Author Organization [facility] t Address [address] [place] [address] Care Team Providers Name Role Phone CALVIN WORLEY Primary Care Physician Unavailable [id number] Attending Clinician Unavailable KELLY WASHINGTON Attending Clinician Unavailable Zion Mathew Anavella Attending Clinician Unava ilable SWEETIE STOUT Attending Clinician Unavailable Girish VILLAREAL, Sweetie Attending Clinician Calvin Worley MD Attending Clinician Ruchi Peters RN Attending Clinician Paco Lacey DO Attending Clinician Hunter VILLAREAL, Vika Fernando Attending Clinician Alvarez Rowe MD Attending Clinician ALVAREZ ROWE Attending Clinician Unavailable PACO LACEY Attending Clinician Unavailable Doctor Unassigned, [place] Attending Clinician Unavailable Wilder VILLAREAL, Angi K.H. Attending Clinician Jl Mccabe MD Attending Clinician Kelly Washington MD Attending Clinician [phone] Lisandra Gallardo MD, Mukul Anand Attending Clinician [id number] Admitting Clinician Unavailable MUKUL GALLARDO Admitting Clinician Unavailable Angle Mathew, Anav Admitting Clinician Unavailable Hunter VILLAREAL, Vika Fernando Admitting Clinician VIKA HARRISON Admitting Clinician Unavailable Nicci VILLARAEL, Mukul Anand Admitting Clinician Payers Payer Name Policy Type Policy Number Effective Date Expiration Date Tony doe MEDICARE PART A [id number] 2007 \\T\\ B 00:00:00 [employer] INDEMNITY [id number] 2016 00:00:00 MCR MCR [id number] Problems Condition Condition Condition Status Onset Resolution Last Treating Co mments Source Name Details Category Date Date Treatment Clinician Date Elevated Elevated Disease Active Unive rs LFTs LFTs 2-05 ity of 00:00: Medical Branch Abnormal Abnormal Disease Active Unive rs CXR CXR 2-05 ity of 00:00: Medical Branch Elevated Elevated Disease Active Unive rs LFTs LFTs 2-05 ity of 00:00: 00 Medical Branch Cellulitis Cellulitis Disease Active 2020-0 U nivers 2-04 ity of 00:00: 00 Medical Branch Rash Rash Disease Active 2019-10 Univers -09 ity of 00:00: 00 Medical Branch Allergies, Adverse Reactions, Alerts Allergy Allergy Status Severity Reaction(s) Onset Inactive Treating Comm ents Source Name Type Date Date Clinician Mcleod Propensi Active Rash 2019- Univers ty to 1-10 ity of adverse 00:00: [place] reaction 00 Medical s Branch PEACH DRUG Active Rash 2019-10 Univers INGREDI 1-10 ity of 00:00: 00 Medical Branch Lidocain Drug Active Itching 2019-10 Univers e Allergy -09 ity of 00:00: 00 Medical Branch LIDOCAIN DRUG Active ITCHING 2019-10 Univers E INGREDI -09 ity of 00:00: 00 Medical Branch Meperidi Propensi Active Anaphylaxis 2012-0 U nivers ne ty to 3-16 ity of adverse 00:00: [place] reaction 00 Medical s Branch Glimepir Propensi Active Hives Univer s efren ty to 3-16 ity [...] Exposure to Not sure University of SARS-CoV-2 [place] [facility] (event) Branch History of Chews Tobacco University of tobacco use [place] [facility] History SDOH 2020-11-17 2020-11-17 5 University o f Financial 00:00:00 00:00:00 [place] [facility] History SDOH Food 2020-11-17 2020-11-17 1 Univers ity of Worry 00:00:00 00:00:00 [place] [facility] History SDOH Food 2020-11-17 2020-11-17 1 Univers ity of Scarcity 00:00:00 00:00:00 [place] [facility] History SDOH 2020-11-17 2020-11-17 1 University o f Transport Med 00:00:00 00:00:00 [place] Medic al Branch History SDVA 2020-11-17 2020-11-17 1 University o f Transport Non-Med 00:00:00 00:00:00 [facility] edical Branch Education 2020-11-16 2020-11-16 21 [place] of 00:00:00 00:00:00 [facility] Branch Alcohol intake 2020-11-16 2020-11-16 Ex-drinker [place] of 00:00:00 00:00:00 (finding) [facility] Tobacco use and 2020-08-21 2020-08-21 Former user Universi ty of exposure 00:00:00 00:00:00 [facility] Tobacco Comment 2020-08-21 2020-08-21 quit 10 years Univer sity of 00:00:00 00:00:00 ago, started in [place] Med ical 2nd year of Branch college (~40 years) Alcohol Comment 2020-08-21 2020-08-21 Used to have 2-3 Uni versity of 00:00:00 00:00:00 six-packs of [place] Medica l beer daily x 20 Branch years, quit 2004 History [facility] 2020-08-21 2020-08-21 99 University o f Alcohol Frequency 00:00:00 00:00:00 [place] M edical Branch History SDVA 2020-08-21 2020-08-21 99 University o f Alcohol Std 00:00:00 00:00:00 [place] Medical Drinks Branch History SDVA 2020-08-21 2020-08-21 99 University o f Alcohol Binge 00:00:00 00:00:00 [facility] [place] Sex [birth year] Universit y of 00:00:00 00:00:00 [facility] Smoking Status Start Date Stop Date Source Never smoker [facility] Medications Ordered Filled Start Stop Current Ordering Indication Dosage Frequency Signature Comments Components Source Medication Medication Date Date Medication? Clinician (SIG) Name Name FENTanyl PF 2020-10 No 100ug 100 mcg, Univers (SUBLIMAZE 10-22 11-10 Slow IV ity o f (PF)) [...] at [place] 18 bedtime. Medical Branch HYDROmorpho Yes 4mg [...] at [place] 18 bedtime. Medical Branch HYDROmorpho Yes 4mg [...] 0845, Until Discontinu ed, Routine amLODIPine Yes [id number] 10mg Take 1 Univers 10 mg 3-07 tablet by ity of tablet 00:00: mouth [place] 00 daily. Medical Branch clotrimazol Yes [id number] Apply to Univers e 1 % 3-07 face/ears, ity of topical 00:00: armpits, [place] cream 00 pannus and Medical back/any Branch other rash twice a day fluocinonid 0 Yes [id number] Apply to Univers e 0.05 % 3-07 scalp ity of solution 00:00: twice a 00 day Medical Branch triamcinolo 0 Yes [id number] Apply to Univers ne 3-07 back, ity of acetonide 00:00: armpits [place] 0.1 % cream 00 and other Med ical affected Branch areas twice daily, please mix with clotrimazo le hydrOXYzine Yes [id number] 10mg Take 1 Univers 10 mg 3-07 tablet by ity of tablet 00:00: mouth 2 (two) Medical times Branch daily. amLODIPine Yes [id number] 10mg Take 1 Univers 10 mg 3-07 tablet by ity of tablet 00:00: mouth [place] 00 daily. Medical Branch clotrimazol Yes [id number] Apply to Univers e 1 % 3-07 face/ears, ity of topical 00:00: armpits, [place] cream 00 pannus and Medical back/any Branch other rash twice a day fluocinonid 0 Yes [id number] Apply to Univers e 0.05 % 3-07 scalp ity of solution 00:00: twice a day Medical Branch triamcinolo Yes [id number] Apply to Univers ne 3-07 back, ity of acetonide 00:00: armpits [place] 0.1 % cream 00 and other Med ical affected Branch areas twice daily, please mix with clotrimazo le hydrOXYzine Yes [id number] 10mg Take 1 Univers 10 mg 3-07 tablet by ity of tablet 00:00: mouth 2 00 (two) Medical times Branch daily. amLODIPine 2020-0 Yes [id number] 10mg Take 1 Univers 10 mg 3-07 tablet by ity of tablet 00:00: mouth [place] 00 daily. Medical Branch clotrimazol 2020-0 Yes [id number] Apply to Univers e 1 % 3-07 face/ears, ity of topical 00:00: armpits, [place] cream 00 pannus and Medical back/any Branch other rash twice a day fluocinonid 2020-0 Yes [id number] Apply to Univers e 0.05 % 3-07 scalp ity of solution 00:00: twice a day Medical Branch triamcinolo 2020-0 Yes [id number] Apply to Univers ne 3-07 back, ity of acetonide 00:00: armpits [place] 0.1 % cream 00 and other Med ical affected Branch areas twice daily, please mix with clotrimazo le hydrOXYzine Yes [id number] 10mg Take 1 Univers 10 mg 3-07 tablet by ity of tablet 00:00: mouth 2 [place] 00 (two) Medical times Branch daily. amLODIPine Yes [id number] 10mg Take 1 Univers 10 mg 3-07 tablet by ity of tablet 00:00: mouth [place] 00 daily. Medical Branch clotrimazol Yes [id number] Apply to Univers e 1 % 3-07 face/ears, ity of topical 00:00: armpits, [place] cream 00 pannus and Medical back/any Branch other rash twice a day fluocinonid 2020- Yes [id number] Apply to Univers e 0.05 % 3-07 scalp ity of solution 00:00: twice a Medical Branch triamcinolo 0 Yes [id number] Apply to Univers ne 3-07 back, ity of acetonide 00:00: armpits [place] 0.1 % cream 00 and other Med ical affected Branch areas twice daily, please mix with clotrimazo le hydrOXYzine Yes [id number] 10mg Take 1 Univers 10 mg -07 tablet by ity of tablet 00:00: mouth 2 [place] (two) Medical times Branch daily. cephALEXin 2020-2020- No [id number] 500mg Take 1 Univers 500 mg -04 14- capsule by ity of capsule 00:00: 05:59 mouth [place] 00 :00 every 6 Medical (six) Branch hours for 3 days. cephALEXin 2020-0 2020- No [id number] 500mg Take 1 Univers 500 mg 3-04 14- capsule by ity of capsule 00:00: 05:59 mouth [place] 00 :00 every 6 Medical (six) Branch hours for 3 days. hydrOXYzine 2020-0 2020- No [id number] 10mg Take 1 Univers 10 mg 3-04 14-07 tablet by ity of tablet 00:00: 00:00 mouth 2 [place] 00 :00 (two) Medical times [place] daily. morpHINE Yes 4mg 4 mg, Slow [...] 2020- No 4mg 4 mg, Slow Un tio injection 4 12-16-06 IV Push, ity of mg 11:15: 10:58 ONCE, 1 [place] 00 :00 dose, Sat [facility] 12/16/20 at Branch 0515, Routine lactated 2020- No 1000mL at 125 Univ ers ringers IV 12-16 03-06 mL/hr, ity of infusion 01:00: 00:16 1,000 mL, [place] 1,000 mL 00 :00 IV Medical Infusion, [place] ONCE, 1 dose, 12/15/20 at 1900, Routine iohexol 2020- No 100mL 100 mL, Unive rs (OMNIPAQUE 12-15-05 Intravenou it y of 350 22:24: 22:24 s, ONCE, 1 [place] BULK-100 00 :00 dose, Fri Medica l mL) 12/15/20 at [place] injection 1645, 100 mL Routine cephALEXin 2020- [...] Until Discontinu ed, Routine amLODIPine 2020- No [id number] 10mg Take 1 Univers 10 mg 12-15-07 [...] mg, [facility] ers (ATARAX) 3-04 Oral, BID, ity o f tablet 10 17:30: First dose [place] mg 00 on [facility] 12/14/20 at Branch 1130, Until Discontinu ed, Routine lisinopriL Yes 5mg 5 mg, Univer s (PRINIVIL,Z 3-04 Oral, ity of ESTRIL) 17:30: DAILY, [place] tablet 5 mg 00 First dose Me dical on [facility] Branch 3/4/21 at 1130, Until Discontinu ed, Routine triamcinolo 2020- No [id number] Apply to Univers ne 12-14 back, ity of acetonide 00:00: 00:00 armpits [place] 0.1 % cream 00 :00 and other Med ical affected Branch areas twice daily, please mix with clotrimazo le clotrimazol 2020- No [id number] Apply to Univers e 1 % 12-14 face/ears, ity of topical 00:00: 00:00 armpits, [place] cream 00 :00 pannus and Medical back/any Branch other rash twice a day fluocinonid 2020- No [id number] Apply to Univers e 0.05 % 12-14 scalp ity of solution 00:00: 00:00 twice a [place] 00 :00 day Medical Branch hydrOXYzine 2020- No [id number] 10mg Take 1 Univers 10 mg 12-14 [...] IV Push, ity of (PF)) 10:07: Q6HPRN, [place] injection 4 28 Starting Medi jose c mg Fri12/13/20 Branch at 0407, Until Discontinu ed, Routine, Nausea and Vomiting (N/V) ondansetron 2020- No 4mg 4 mg, Slow Univers (ZOFRAN 3-03 IV Push, ity of (PF)) 04:55: 05:44 ONCE, 1 [place] injection 4 00 :00 dose, [facility] ical mg 12/12/20 at Branch 2300, Routine traMADoL 2020- No 50mg 50 mg, Univer s (ULTRAM) 12-13 03-03 Oral, ity of tablet 50 03:45: 03:34 ONCE, 1 [place] mg 00 :00 dose, [facility] 12/12/20 at Branch 2145, Routine insulin Yes 15U 15 Units, [place] [facility] rs glargine 12-12 Subcutaneo ity o f (LANTUS 15:00: us, DAILY, [place] U-100) 00 First dose Medical injection on [facility] 15 Units 12/12/20 at 0900, Until Discontinu [...] 03:00: First dose [place] mg 00 [facility] 12/11/20 at Branch 2100, Until Discontinu ed, Routine venlafaxine 0 Yes 300mg 300 mg, Un toi XR (EFFEXOR 3-02 Oral, QHS, it y of XR) 24 hr 03:00: First dose [place] capsule 300 00 on Fri Medica l mg 12/11/20 at Branch 2100, Until Discontinu ed, Routine fluocinonid 2020-0 Yes Topical, Un toi e (LIDEX) 3-02 BID, First ity of 0.05 % 02:00: dose on [place] solution 00 Fri12/11/20 Medic al at 2000, Branch Until Discontinu ed, Routine acetaminoph 2020- No 1{tbl} 1 tablet, Univers en-codeine 3 03-05 Oral, ity of (TYLENOL 23:23: 13:49 Q6HPRN, [place] #3) 300-30 43 :08 Starting Medic al mg tablet 1 Fri12/11/20 Br anch tablet at 1723, Until Fri12/15/20 at 0749, Routine, Pain (scale 4-6) enoxaparin 0 Yes 40mg 40 mg, Unive rs (LOVENOX) 3 Subcutaneo ity of injection 23:00: us, DAILY, [place] 40 mg 00 First dose Medical on Fri Branch 12/11/20 at 1700, Until Discontinu ed, Routine clotrimazol 2020-0 Yes Topical, Un toi e 3- BID, First ity of (LOTRIMIN) 19:15: dose on [place] 1 % topical 00 Fri12/11/20 Me dical cream at 1315, Branch Until Discontinu ed, Routine hydrocortis 2020-0 Yes Topical Uni vers one 2.5 % 12-11 (Apply To ity o f cream 19:15: Affected 00 Areas), Medical BID, First Branch dose on Fri12/11/20 at 1315, Until Discontinu ed, Routine triamcinolo 2020-0 Yes Topical, Un toi ne 3-01 BID, First ity of acetonide 19:00: dose [place] (TRIDERM) 00 (after Medical 0.1 % cream last Branch modificati on) on Fri12/11/20 at 1300, Until Discontinu ed, Routine ceFAZolin No 1000mg 1,000 mg, Univers (ANCEF) 12-11 IV ity of 1,000 mg in 19:00: 17:35 Piggyback, [place] NaCl 0.9% 00 :26 Q8H ABX, Medica l (NS) 50 mL First dose Bra nch MINI-BAG on 12/11/20 at 1300, Until Discontinu ed, 50 mL
R jose armando for Anti-Infec tive: Documented Infection< br>Documen ronan Infection Site: Skin / Soft Tissue
Duration of Therapy: 7 days Sliding Yes Subcutaneo [facility] ers Scale 12-11 us, TID ity of Insulin - 18:00: MEALS+HS, [place] as Lispro 00 First dose Medical (HumaLOG) + on Fri Branch Fsbg 12/11/20 at Testing 1200, Until Discontinu ed, Routine insulin Yes 5U 5 Units, [facility] lispro 12-11 Subcutaneo ity of (human) 18:00: us, TID [place] (HumaLOG 00 MEALS, Medical U-100) First dose Branch injection 5 on Mon Units 12/11/20 at 1200, Until Discontinu ed Polyethylen Yes 17g 17 g, [place] [facility] rs e Glycol 12-11 Oral, ity of 3350 17:47: M52ZAET, [place] (MIRALAX) 05 Starting Medica l powder [...]
Duration of therapy: 72 hours sennosides- Yes [id number] 1{tbl} Take 1 [facility] docusate 2-09 tablet by ity of sodium 00:00: mouth 2 [place] 8.6-50 mg 00 (two) Medical per tablet times Branch daily. hydrocortis Yes [id number] Apply to [facility] one 2.5 % 11-21 affected ity of cream 00:00: area(s) 2 [place] 00 (two) Medical times Branch daily. blood sugar Yes [id number] Use to [facility] diagnostic 2- check ity of (FREESTYLE 00:00: blood [place] LITE 00 glucose Medical STRIPS) 4-5 times Branch strip daily. Polyethylen 2020- Yes [id number] 17g Take 1 Univers e Glycol 2-09 Packet by ity of 3350 17 00:00: mouth [place] gram powder 00 every 24 Medi jose c (twenty-fo Branch ur) hours as needed for Constipati on. sennosides- Yes [id number] 1{tbl} Take 1 Univers docusate 2-09 tablet by ity of sodium 00:00: mouth 2 [place] 8.6-50 mg 00 (two) Medical per tablet times Branch daily. hydrocortis 2020- Yes [id number] Apply to Univers one 2.5 % 2-09 affected ity of cream 00:00: area(s) 2 [place] 00 (two) Medical times Branch daily. blood sugar Yes [id number] Use to Univers diagnostic 2-09 check ity of (FREESTYLE 00:00: blood [place] LITE 00 glucose Medical STRIPS) 4-5 times Branch strip daily. Polyethylen Yes [id number] 17g Take 1 Univers e Glycol 2-09 Packet by ity of 3350 17 00:00: mouth [place] gram powder 00 every 24 Medi jose c (twenty-fo Branch ur) hours as needed for Constipati on. sennosides- Yes [id number] 1{tbl} Take 1 Univers docusate 2-09 tablet by ity of sodium 00:00: mouth 2 [place] 8.6-50 mg 00 (two) Medical per tablet times Branch daily. hydrocortis 2020- Yes [id number] Apply to Univers one 2.5 % 2-09 affected ity of cream 00:00: area(s) 2 [place] 00 (two) Medical times Branch daily. blood sugar 2020-0 Yes [id number] Use to Univers diagnostic 209 check ity of (FREESTYLE 00:00: blood [place] LITE 00 glucose Medical STRIPS) 4-5 times Branch strip daily. Polyethylen 2020-0 Yes [id number] 17g Take 1 Univers e Glycol 2-09 Packet by ity of 3350 17 00:00: mouth [place] gram powder 00 every 24 Medi jose c (twenty-fo Branch ur) hours as needed for Constipati on. sennosides- 2020- Yes [id number] 1{tbl} Take 1 Univers docusate 2-09 tablet by ity of sodium 00:00: mouth 2 [place] 8.6-50 mg 00 (two) Medical per tablet times Branch daily. hydrocortis Yes [id number] Apply to [facility] one 2.5 % 11-21 affected ity of cream 00:00: area(s) 2 [place] 00 (two) Medical times Branch daily. blood sugar Yes [id number] Use to [facility] diagnostic 11-21 check ity of (FREESTYLE 00:00: blood [place] LITE 00 glucose Medical STRIPS) 4-5 times Branch strip daily. Polyethylen Yes [id number] 17g Take 1 Univers e Glycol 11-21 Packet by ity of 3350 17 00:00: mouth [place] gram powder 00 every 24 Medi jose c (twenty-fo Branch ur) hours as needed for Constipati on. Insulin 2020- No [id number] 15U inject 15 Univers Glargine 11-21 Units ity of (LANTUS 00:00: 05:59 under the [employer] SOLOSTAR 00 :00 skin every Medic al U-100 morning Branch INSULIN) for 30 100 unit/mL days. (3 mL) injection venlafaxine 2020- No [id number] 150mg Take 1 Univers XR 150 mg 11-21 capsule by ity of 24 hr 00:00: 05:59 mouth 3 [place] capsule 00 :00 (three) Medical times Branch daily for 30 days. Insulin 2020- No [id number] 15U inject 15 Univers Glargine 11-21-12 Units ity of (LANTUS 00:00: 05:59 under the [facility] [employer] SOLOSTAR 00 :00 skin every Medic al U-100 morning Branch INSULIN) for 30 100 unit/mL days. (3 mL) injection venlafaxine 2020- No [id number] 150mg Take 1 Univers XR 150 mg 11-21 capsule by ity of 24 hr 00:00: 05:59 mouth 3 [place] capsule 00 :00 (three) Medical times Branch daily for 30 days. triamcinolo 2020- No [id number] Apply to [facility] ne 11-21-04 area(s) 2 ity of acetonide 00:00: 00:00 (two) [place] 0.1 % cream 00 :00 times Medical daily. Branch cephALEXin 2020- No [id number] 1000mg Take 2 Univers 500 mg 11-21 capsules ity of capsule 00:00: 00:00 by mouth 3 [place] 00 :00 (three) Medical times Branch daily. doxycycline 2020- No [id number] 100mg Take 1 Univers hyclate 100 11-21 capsule by i ty of mg capsule 00:00: 00:00 mouth [place] 00 :00 every 12 Medical (twelve) Branch hours. lactobacill 2020- No [id number] 1{tbl} Take 1 Univers us 11-21 tablet by ity of acidophilus 00:00: 00:00 mouth 2 [place] 25 million 00 :00 (two) Medical cell -100 times Branch mg captab daily. bisacodyL 2020- No [id number] 10mg Insert 1 Univers 10 mg 11-21 Suppositor ity of suppository 00:00: 00:00 y into [place] 00 :00 rectum at Medical bedtime as Branch needed for Constipati on. ALPRAZolam 2020- No [id number] .25mg Take 1 Univers (XANAX) 11-21 tablet by ity of 0.25 mg 00:00: 00:00 mouth 2 [place] tablet 00 :00 (two) Medical times Branch daily. hydrOXYzine 2020- No [id number] 20mg Take 2 Univers 10 mg 11-21 [...] 01:13: under the [facility] [place] [facility] FLEXPEN SC) 36 skin. Medical Branch [...] 01:13: under the [facility] [place] [facility] FLEXPEN SC) 36 skin. Medical Branch [...] ity of (NOVOLOG 01:13: under the [facility] s FLEXPEN SC) 36 skin. [...] 34 :00 Medical Branch hydrocortis 2019-10 Yes [id number] Apply to Univers one 2.5 % 1-11 affected ity of cream 00:00: area(s) 2 [place] 00 (two) Medical times Branch daily. hydrOXYzine 2019-10 Yes [id number] 20mg Take 2 Univers 10 mg 1-11 tablets by ity of tablet 00:00: mouth [place] 00 every 8 Medical (eight) Branch hours as needed for Itching or Anxiety. Polyethylen 2019-10 Yes [id number] 17g Take 1 Univers e Glycol 1-11 Packet by ity of 3350 17 00:00: mouth [place] gram powder 00 every 24 Medi jose c (twenty-fo Branch ur) hours as needed for Constipati on. hydrocortis 2019-10 Yes [id number] Apply to Univers one 2.5 % 1-11 affected ity of cream 00:00: area(s) 2 [place] 00 (two) Medical times Branch daily. hydrOXYzine 2019- Yes [id number] 20mg Take 2 Univers 10 mg 1-11 tablets by ity of tablet 00:00: mouth [place] 00 every 8 Medical (eight) Branch hours as needed for Itching or Anxiety. Polyethylen 2019- Yes [id number] 17g Take 1 Univers e Glycol 1-11 Packet by ity of 3350 17 00:00: mouth [place] gram powder 00 every 24 Medi jose c (twenty-fo Branch ur) hours as needed for Constipati on. hydrocortis 2019- Yes [id number] Apply to Univers one 2.5 % 1-11 affected ity of cream 00:00: area(s) 2 [place] (two) Medical times Branch daily. hydrOXYzine 2019- Yes [id number] 20mg Take 2 Univers 10 mg 1-11 tablets by ity of tablet 00:00: mouth [place] 00 every 8 Medical (eight) Branch hours as needed for Itching or Anxiety. Polyethylen 2019- Yes [id number] 17g Take 1 Univers e Glycol 1-11 Packet by ity of 3350 17 00:00: mouth [place] gram powder 00 every 24 Medi jose c (twenty-fo Branch ur) hours as needed for Constipati on. hydrocortis 2019-10 Yes [id number] Apply to Univers one 2.5 % 1-11 affected ity of cream 00:00: area(s) 2 [place] (two) Medical times Branch daily. hydrOXYzine 2019- Yes [id number] 20mg Take 2 Univers 10 mg 1-11 tablets by ity of tablet 00:00: mouth [place] 00 every 8 Medical (eight) Branch hours as needed for Itching or Anxiety. Polyethylen 2019- Yes [id number] 17g Take 1 Univers e Glycol 1-11 Packet by ity of 3350 17 00:00: mouth [place] gram powder 00 every 24 Medi jose c (twenty-fo Branch ur) hours as needed for Constipati on. hydrocortis 2019-10 Yes [id number] Apply to Univers one 2.5 % 1-11 affected ity of cream 00:00: area(s) 2 [place] 00 (two) Medical times Branch daily. hydrOXYzine 2019-10 Yes [id number] 20mg Take 2 Univers 10 mg 1-11 tablets by ity of tablet 00:00: mouth [place] 00 every 8 Medical (eight) Branch hours as needed for Itching or Anxiety. Polyethylen 2020- Yes [id number] 17g Take 1 Univers e Glycol 1-11 Packet by ity of 3350 17 00:00: mouth [place] gram powder 00 every 24 Medi jose c (twenty-fo Branch ur) hours as needed for Constipati on. hydrocortis 2019- Yes [id number] Apply to Univers one 2.5 % 1-11 affected ity of cream 00:00: area(s) 2 [place] 00 (two) Medical times Branch daily. hydrOXYzine 2019- Yes [id number] 20mg Take 2 Univers 10 mg 1-11 tablets by ity of tablet 00:00: mouth [place] 00 every 8 Medical (eight) Branch hours as needed for Itching or Anxiety. Polyethylen 2019- Yes [id number] 17g Take 1 Univers e Glycol 1-11 Packet by ity of 3350 17 00:00: mouth [place] gram powder 00 every 24 Medi jose c (twenty-fo Branch ur) hours as needed for Constipati on. hydrocortis 2019-10 Yes [id number] Apply to Univers one 2.5 % 1-11 affected ity of cream 00:00: area(s) 2 [place] 00 (two) Medical times Branch daily. hydrOXYzine 2019-10 Yes [id number] 20mg Take 2 Univers 10 mg 1-11 tablets by ity of tablet 00:00: mouth [place] 00 every 8 Medical (eight) Branch hours as needed for Itching or Anxiety. Polyethylen 2019- Yes [id number] 17g Take 1 Univers e Glycol 1-11 Packet by ity of 3350 17 00:00: mouth [place] gram powder 00 every 24 Medi jose c (twenty-fo Branch ur) hours as needed for Constipati on. triamcinolo 2019- 2020- No [id number] Apply to [facility] 10-23 area(s) 2 ity of acetonide 00:00: 05:59 (two) [place] 0.1 % cream 00 :00 times Medical daily for Branch 14 days. triamcinolo 2019- 2020- No [id number] Apply to [facility] 10-23 area(s) 2 ity of acetonide 00:00: 05:59 (two) [place] 0.1 % cream 00 :00 times Medical daily for Branch 14 days. triamcinolo 2019- 2020- No [id number] Apply to [facility] ne 10-23 area(s) 2 ity of acetonide 00:00: 05:59 (two) [place] 0.1 % cream 00 :00 times Medical daily for Branch 14 days. KCL 2019- 2020- No 40meq 40 mEq, Univers (KLOR-CON 1-10 11-10 Oral, ONCE ity of M20) tablet 16:15: 16:23 NOW, 1 [place] 40 mEq 00 :00 dose, [facility] 08/22/20 Branch at 1015, Routine HYDROmorpho 2019-10 Yes 1mg 1 mg, Unive rs ne 1-10 Oral, ity of (DILAUDID) 15:07: Q6HPRN, [place] tablet 1 mg 53 Starting [facility] 08/22/20 at 0907, Until Discontinu ed, Routine, Pain (scale 7-10) hydrocortis 2019-10 Yes Topical Uni vers one 2.5 % 1-10 (Apply To ity o f cream 02:00: Affected [place] 00 Areas), Medical BID, First Branch dose on [facility] 08/21/20 at 2000, Until Discontinu ed, Routine triamcinolo 2019-10 Yes Topical, Un toi ne 1-10 BID, First ity of acetonide 02:00: dose on [place] (TRIDERM) [facility] Medical 0.1 % cream 08/21/20 at Br anch 2000, Until Discontinu ed, Routine hydrOXYzine 2019-10 Yes 20mg 20 mg, Univ ers (ATARAX) 09 Oral, ity of tablet 20 17:39: Q8HPRN, [place] mg 12 Starting [facility] 08/21/20 at 1139, Until Discontinu ed, Routine, Itching, Anxiety sennosides- 2019-10 Yes 1{tbl} 1 tablet, Univers docusate 09 Oral, ity of sodium 15:00: DAILY, [place] (SENOKOT-S) 00 First dose Me dical 8.6-50 mg on [facility] per tablet 08/21/20 at 1 tablet 0900, Until Discontinu ed, Routine hydrocortis 2019-10 2020- No Topical Un toi one 1 % 10-21- (Apply To ity of cream 15:00: 22:54 Affected [place] 00 :48 Areas), Medical DAILY, Branch First dose on [facility] 08/21/20 at 0900, Until Discontinu ed, Routine venlafaxine 2019-10 Yes 150mg 150 mg, Un toi XR (EFFEXOR 09 Oral, TID, it y of XR) 24 hr 14:00: First dose [place] capsule 150 00 on [facility] Medica l mg 08/21/20 at Branch [...] [facility] 08/21/20 at 0656, Until [facility] 08/21/20 at 1139, Routine, Itching, Mild Rash, Congestion /Allergies , alternate with hydroxyzin e hydrOXYzine 2019-10- No 10mg 10 mg, Uni vers (ATARAX) 10-21 Oral, ity of tablet 10 10:20: 12:57 Q6HPRN, [place] mg 22 :12 Starting Medical [facility] 08/21/20 at 0420, Until [facility] 08/21/20 at 0657, Routine, Itching, Anxiety [...] dose, [facility] 00 :00 08/21/20 at [facility] 0330, Branch Routine Polyethylen 2019-10 Yes 17g 17 g, Unive rs e Glycol 10-21 Oral, ity of 3350 08:29: G92UGFO, [place] (MIRALAX) 09 Starting Medica l powder 17 g [facility] 08/21/20 at 0229, Until Discontinu ed, Routine, Constipati on lanolin 2019-10 Yes Topical, Univer s alcohol-mo- 10-21 PRN, ity of w.pet-ceres 08:26: [place] (EUCERIN) 30 Mon Medical cream 08/21/20 at Branch 0226, Until Discontinu ed, Routine, Dermatitis /Rash ALPRAZolam 2019-10 Yes .25mg 0.25 mg, Un toi (XANAX) 09 Oral, ity of tablet 0.25 08:25: BIDPRN, [...] (scale 1-3) sotalol 2019-10- No [facility] (BET[facility] 10-21 mouth ity [...] to [facility] ers diagnostic -25 check ity of (FREESTYLE 00:00: blood [place] LITE 00 glucose Medical STRIPS) 4-5 times Branch strip daily. blood sugar Yes Use to [facility] ers diagnostic -25 check ity of (FREESTYLE 00:00: blood [place] LITE 00 glucose Medical STRIPS) 4-5 times Branch strip daily. Vital Signs Vital Name Observation Time Observation Value Comments Source Systolic blood 2021-08-22 13:00:00 148 mm[Hg] Univer sity of [facility] Diastolic blood 2021-08-22 13:00:00 84 mm[Hg] Unive rsity [facility] Heart rate 2021-08-22 13:00:00 103 /min General acute hospital Respiratory rate 2021-08-22 13:00:00 18 /min [facility] Oxygen saturation in 2021-08-22 13:00:00 95 /min [facility] Arterial blood by [facility] Pulse oximetry Branch Body temperature 2021-08-22 12:22:00 36.72 [place] [facility] Systolic blood 2020-12-17 18:35:00 139 mm[Hg] Univer sity of [facility] Diastolic blood 2020-12-17 18:35:00 87 mm[Hg] Unive rsity of [facility] Heart rate 2020-12-17 18:35:00 110 /min General acute hospital Body temperature 2020-12-17 18:35:00 37.72 [place] [facility] Respiratory rate 2020-12-17 18:35:00 18 /min [facility] saturation in 2020-12-17 18:35:00 93 /min University of Arterial blood by [facility] jose c Pulse oximetry Branch Body height [...] 93 /min University of Arterial blood by [facility] Pulse oximetry Branch Body height 2020-12-12 08:21:00 [...] 93 /min University of Arterial blood by [facility] Pulse oximetry Branch Body weight 2020-08-21 07:20:00 104.962 kg [facility] [place] [facility] BMI 2020-08-21 07:20:00 32.27 kg/m2 [facility] [place] [facility] Systolic blood 2020-08-23 19:27:00 140 mm[Hg] Univer sity of pressure [facility] Diastolic blood 2020-08-23 19:27:00 79 mm[Hg] [facility] Heart rate 2020-08-23 19:27:00 99 /min General acute hospital Body temperature 2020-08-23 19:27:00 36 [place] [facility] Respiratory rate 2020-08-23 19:27:00 18 /min Univ [facility] Oxygen saturation in 2020-08-23 19:27:00 93 /min [facility] Arterial blood by [facility] Pulse oximetry [place] Body weight 2020-08-21 07:20:00 104.962 kg General acute hospital BMI 2020-08-21 07:20:00 32.27 kg/m2 General acute hospital Procedures Procedure Date / Time Performing Clinician Source Performed POCT GLUCOSE (AUTOMATED) 2020-12-17 15:42:[address] [facility] BASIC METABOLIC PANEL 2020-12-17 10:45:00 Paul Bean [facility] (NA, K, CL, CO2, GLUCOSE, [place] Medica l Branch BUN, CREATININE, CA) CBC WITH DIFF 2020-12-17 10:45:00 Paul Bean [facility] POCT GLUCOSE (AUTOMATED) 2020-12-17 02:36:[address] [facility] XR TIBIA FIBULA 2 VW LEFT 2020-12-16 23:38:00 [facility]SE (AUTOMATED) 2020-12-16 23:20:00 Harrison, [facility]al [facility]UCOSE (AUTOMATED) 2020-12-16 20:10:00 Hunter [facility]al [facility] PO[facility]UCOSE (AUTOMATED) 2020-12-16 14:43:00 Hunter Premal [facility] BASIC METABOLIC PANEL 2020-12-16 13:51:00 Paul Bean [facility] (NA, K, CL, CO2, GLUCOSE, [facility] Medica l Branch BUN, CREATININE, CA) CBC WITH DIFF 2020-12-16 13:51:00 Paul Bean [facility] POCT GLUCOSE (AUTOMATED) 2020-12-16 04:00:00 Harrison, Premal G Uni versity of [facility] POCT GLUCOSE (AUTOMATED) 2020-12-16 00:14:00 Harrison, Premal G Uni versity of [facility] CT CHEST PULMONARY 2020-12-15 22:29:38 Paul Bean [facility] ANGIOGRAM [facility] POCT GLUCOSE (AUTOMATED) 2020-12-15 19:26:00 Harrison, Premal G Uni versity of [facility] POCT GLUCOSE (AUTOMATED) 2020-12-15 15:13:00 Harrison, Premal [facility] HB ECG ROUTINE & RHYTHM 2020-12-15 14:25:27 Cailin Romo [facility] MAGNESIUM 2020-12-15 12:01:00 Paul Bean Sivakumar [facility] BASIC METABOLIC PANEL 2020-12-15 12:01:00 Paul Bean [facility] (NA, K, CL, CO2, GLUCOSE, [facility] BUN, CREATININE, CA) CBC WITH DIFF 2020-12-15 12:01:00 Paul Bean Sivakumar [facility] POCT GLUCOSE (AUTOMATED) 2020-12-15 03:57:00 Harrison, Premal G Uni versity of [facility] POCT GLUCOSE (AUTOMATED) 2020-12-14 23:31:00 Harrison, Premal G Uni versity of [facility] POCT GLUCOSE (AUTOMATED) 2020-12-14 19:08:00 Harrison, Premal G Uni versity of [facility] POCT GLUCOSE (AUTOMATED) 2020-12-14 15:11:00 Harrison, Premal G Uni versity of [facility] POCT GLUCOSE (AUTOMATED) 2020-12-14 02:36:00 Harrison, Premal G Uni versity of [facility] POCT GLUCOSE (AUTOMATED) 2020-12-13 23:32:00 Harrison, Premal G Uni versity of [facility] POCT GLUCOSE (AUTOMATED) 2020-12-13 18:08:00 Harrison, Premal G Uni versity of [facility] BASIC METABOLIC PANEL 2020-12-13 15:39:00 Paul Bean [facility] (NA, K, CL, CO2, GLUCOSE, [facility] Med[facility] l Branch BUN, CREATININE, CA) CBC WITH DIFF 2020-12-13 15:39:00 Paul Bean [facility] POCT GLUCOSE (AUTOMATED) 2020-12-13 14:06:00 Harrison, Premal G Uni versity of [facility] POCT GLUCOSE (AUTOMATED) 2020-12-13 03:07:00 Harrison, Premal G Uni versity of [facility] POCT GLUCOSE (AUTOMATED) 2020-12-12 23:52:00 Harrison, Premal G Uni versity of [facility] POCT GLUCOSE (AUTOMATED) 2020-12-12 20:28:00 Harrison, Premal G Uni versity of [facility] POCT GLUCOSE (AUTOMATED) 2020-12-12 19:14:00 Harrison, Premal G Uni versity of [facility] POCT GLUCOSE (AUTOMATED) 2020-12-12 14:33:00 Harrison, Premal G Uni versity of [facility] MAGNESIUM 2020-12-12 08:58:00 Paul Bean [facility] BASIC METABOLIC PANEL 2020-12-12 08:58:00 Paul Bean [facility] (NA, K, CL, CO2, GLUCOSE, [facility] Med[facility] l Branch BUN, CREATININE, CA) CBC WITH DIFF 2020-12-12 08:58:00 Paul Bean [facility] US ABDOMEN LIMITED 2020-12-12 06:32:26 Paul Bean [facility] POCT GLUCOSE (AUTOMATED) 2020-12-12 03:40:00 Harrison, Premal G Uni versity of [facility] POCT GLUCOSE (AUTOMATED) 2020-12-12 00:06:00 Harrison, Premal G Uni versity [facility] [place] [facility] XR HIPS 3 VW LEFT 2020-12-11 20:20:00 Paul Bean Sivakumar [facility] HB ECG ROUTINE & RHYTHM 2020-12-11 20:04:06 Demetrius [facility] VITAMIN B6, PLASMA 2020-12-11 19:17:00 Paul Bean Sivakumar [facility] POCT GLUCOSE (AUTOMATED) 2020-12-11 19:06:00 Vika Harrison [facility] CREATINE KINASE 2020-12-11 18:22:[address] [facility] VITAMIN B12, LEVEL 2020-12-11 18:22:00 Vikas [facility] FOLATE 2020-12-11 18:22:00 Vikas [facility] THYROID STIMULATING 2020-12-11 18:22:00 Demetrius [facility] HORMONE [facility] PROCALCITONIN 2020-12-11 18:22:00 Vikas [facility] VITAMIN B1 (THIAMINE), 2020-12-11 18:22:00 [facility] CT HEAD WO CONTRAST 2020-12-11 14:07:35 Sweetie Stout [facility] acute hospital URINALYSIS 2020-12-11 13:44:00 [facility] URINE CULTURE 2020-12-11 13:44:00 [facility] COVID-19 (ID NOW RAPID 2020-12-11 12:31:00 Paco Lacey [facility] TESTING) Medical Branch LAB ONLY COVID 2020-12-11 12:31:00 Singer [facility] INTERPRETATION [facility] XR CHEST 1 VW 2020-12-11 12:07:24 [facility] BLOOD CULTURE SCREEN 2020-12-11 12:02:00 Paco Lacey [facility] MAGNESIUM 2020-12-11 12:02:00 [facility] 2020-12-11 12:02:00 Paul Bean [facility] COMP. METABOLIC PANEL 2020-12-11 12:02:00 Singer [facility] ([id number]) Medical [place] CBC WITH DIFF 2020-12-11 12:02:00 [facility] LACTIC ACID WHOLE BLOOD 2020-12-11 12:02:00 Singer Paco [facility] BLOOD CULTURE SCREEN 2020-12-11 11:42:00 Singer Paco [facility] EMERGENCY SERVICES 2020-12-11 06:01:00 Doctor Unassnadya, [facility] AGREEMENTS AND [place] [place] AUTHORIZATIONS HOSPITAL ADMISSION 2020-12-11 06:01:00 Doctor Unaowen, [facility] Name Medical [place] HOME HEALTH - OTHER 2020-11-11 06:01:00 Doctor Tabitha [facility] [place] [facility] - OTHER 2020-10-30 06:01:00 Doctor Unaowen [facility] Name Medical [place] EXTERNAL PROVIDER RECORDS 2020-09-01 06:01:00 [facility] POCT GLUCOSE (AUTOMATED) 2020-08-23 18:09:00 Kelly Washington [facility] POCT GLUCOSE (AUTOMATED) 2020-08-23 14:14:00 Klely [facility] MAGNESIUM 2020-08-23 11:18:00 Ramya [facility] BASIC METABOLIC PANEL 2020-08-23 11:18:00 [place] [facility] (NA, K, CL, CO2, GLUCOSE, Medica l Branch BUN, CREATININE, CA) CBC WITH DIFF 2020-08-23 11:18:00 [place] [facility] POCT GLUCOSE (AUTOMATED) 2020-08-23 10:21:00 Kelly Washington [facility] POCT GLUCOSE (AUTOMATED) 2020-08-23 05:55:00 Kelly Washington [facility] POCT GLUCOSE (AUTOMATED) 2020-08-23 03:00:00 Kelly Washington Jada [facility]ity [facility] POCT GLUCOSE (AUTOMATED) 2020-08-22 23:38:00 Kelly [place] Jada versity [facility] POCT GLUCOSE (AUTOMATED) 2020-08-22 19:04:00 Kelly [place] Jada versity of [facility] POCT GLUCOSE (AUTOMATED) 2020-08-22 13:49:00 Kelly Washington Jada versity [facility] [place] MAGNESIUM 2020-08-22 10:10:00 Ramya, [facility] HEPATIC FUNCTION PANEL 2020-08-22 10:10:00 Aguila Melchor [facility] ([id number]) (ALB,T.PRO,BILI Medical Branch T,BU/BC,ALT,AST,ALK PHOS) BASIC METABOLIC PANEL 2020-08-22 10:10:00 [place] [facility] (NA, K, CL, CO2, GLUCOSE, Medica l Branch BUN, CREATININE, CA) LIPID PANEL ([id number])(TOTAL 2020-08-22 10:10:00 [place], [facility] CHOLESTEROL, Medical [place] TRIGLYCERIDES, HDL) CBC WITH DIFF 2020-08-22 10:10:00 [place], [facility] POCT GLUCOSE (AUTOMATED) 2020-08-22 10:10:00 [facility] PO[facility]UCOSE (AUTOMATED) 2020-08-22 07:13:00 Kelly [place] versity [facility] POCT GLUCOSE (AUTOMATED) 2020-08-22 02:24:00 Kelly [place] versity of [facility] POCT GLUCOSE (AUTOMATED) 2020-08-21 23:40:00 Kelly [place] versity of [facility] POCT GLUCOSE (AUTOMATED) 2020-08-21 18:10:00 Kelly [place] versity [facility] POCT GLUCOSE (AUTOMATED) 2020-08-21 13:39:00 Kelly Washington [facility] ETHANOL 2020-08-21 12:35:00 [facility] 2020-08-21 12:35:00 [facility] GALV ONLY - SYPHILIS 2020-08-21 12:35:00 Padmini [facility] IGG/IGM [facility] LACTATE DEHYDROGENASE 2020-08-21 10:09:00 Ramya, [facility] GALV/CLC ONLY - URINE 2020-08-21 10:09:00 Richie [facility] DRUG (IMMUNOASSAY) - 4 ER Medica l Branch PANEL URINALYSIS 2020-08-21 10:09:00 [place], [facility] URINE CULTURE 2020-08-21 10:09:00 Ramya, [facility] PROCALCITONIN 2020-08-21 10:09:00 Ramya, [facility] POCT GLUCOSE (AUTOMATED) 2020-08-21 09:41:00 [facility] PROTHROMBIN TIME / INR 2020-08-21 08:32:00 Ramya, [facility] ACTIVATED PARTIAL 2020-08-21 08:32:00 Ramya, [facility] C-REACTIVE PROTEIN 2020-08-21 08:31:00 [place], [facility] HEPATIC FUNCTION PANEL 2020-08-21 08:31:00 [place], [facility] ([id number]) (ALB,T.PRO,BILI Medical Branch T,BU/BC,ALT,AST,ALK PHOS) BASIC METABOLIC PANEL 2020-08-21 08:31:00 [place], [facility] (NA, K, CL, CO2, GLUCOSE, Medica l Branch BUN, CREATININE, CA) SEDIMENTATION RATE 2020-08-21 08:31:00 Ramya, [facility] CBC WITH DIFF 2020-08-21 08:31:00 Ramya, [facility] GLYCOSYLATED HEMOGLOBIN 2020-08-21 08:31:00 [place], [facility] (A1C) Medical [place] HIV 1/2 AG-AB WITH REFLEX 2020-08-21 08:31:00 [facility] COVID-19 (ID NOW RAPID 2020-08-21 08:20:00 Haily Bui [facility] TESTING) Medical Branch LAB ONLY COVID 2020-08-21 08:20:00 [place] [facility] [place] INTERPRETATION [facility] Encounters Start End Encounter Admission Attending Care Care Encounter Source Date/Time Date/Time Type Type Clinicians Facility Department ID 2022-11-13 Outpatient 3 [id number] ENCPL REF [id number] [facility] 11:39:58 0201 Health Rehabil itation Peariftikhar dang 2020-08-21 Inpatient U [place], PRTONG KVNG [id number] Univers 01:07:00 KELLY cantu [facility] 2022-11-14 2022-11-28 Inpatient 3 [facility] ENCPL DELVIS [id number] [facility] 20:40:00 13:29:00 shaggy 0202 [facility] Health Rehabil [facility]ation Peariftikhar d 2021-08-22 2021-08-22 Emergency X [facility] ERT [id number] Univers 06:21:00 08:02:00 SWEETIE cantu [facility] 2021-08-22 2021-08-22 [facility] [id number] Univers 06:21:00 08:02:00 Sweetie LOTT [id number] i ty of [place] 4.2.7.2.686 [facility] s [place] [id number] [facility] 084 Branch 2020-12-28 2020-12-28 Telephone [facility] 1.2.840.114 [id number] Univers 00:00:00 00:00:00 Calvin WILLIAM [id number] it y of CARE 4.2.7.2.686 [id number] Id dical 220 Branch 2020-12-28 2020-12-28 [facility] 1.2.840.114 [id number] 00:00:00 00:00:00 Calvin WILLIAM [id number] CARE 4.2.7.2.686 [facility] [id number] 220 2020-12-19 2020-12-19 Transition Tuan Peters 1.2.840.114 [id number] Univers 00:00:00 00:00:00 of Care Ruchi Braswell [id number] it y of [place] 4[place]2.7.2.686 [place] [id number] [facility] 403 Branch 2020-12-19 2020-12-19 Transition Tuan Peters [id number] 00:00:00 00:00:00 of Care Ruchi Braswell [id number] [place] 4.2.7.2.686 [id number] 403 2020-12-11 2020-12-17 [facility] Paco Lacey 1.2.840.1 [id number] Univers 05:11:00 16:00:00 Encounter HarrisonFaviovik Amaya [id number] ity of [facility] 4.2.7.2.686 [place] [id number] [facility] 096 Branch 2020-12-11 2020-12-17 Inpatient X [facility] [id number] Univers 05:11:00 16:00:00 ity of [facility] 2020-12-11 2020-12-17 [facility] Paco Lacey 1.2.840.1 14 [id number] 05:11:00 16:00:00 Encounter Vika Harrison Monique [id number] [facility] 4.2.7.2.686 [id number] 2020-11-16 2020-11-16 Emergency X [facility] ERT [id number] Univers 09:31:00 09:31:00 PACO cantu of [facility] 2020-11-11 2020-11-11 Orders Doctor CUI 1.2.840.114 [id number] Univers 00:00:00 00:00:00 Only Unassigned, MONIQUE [id number] ity of [facility] 4.2.7.2.686 Jeff as [id number] [address] 2020-11-11 2020-11-11 Orders Doctor BASILIA 1.2.840.114 [id number] 00:00:00 00:00:00 Only Unassigned, MONIQUE [id number] [facility] 4.2.7.[id number] [facility] 2020-11-07 2020-11-07 Telephone [facility] [id number] [facility] 00:00:00 00:00:00 Sendsiobhan Lott [id number] ity of [place] 4.2.7.2.686 [place] Professio [id number] [address] 2020-11-07 2020-11-07 Telephone [facility] [id number] 00:00:00 00:00:00 Angi Lott [id number] [place] 4.2.7.2.686 Professio [id number] [address] 2020-10-30 2020-10-30 Orders Doctor BASILIA 1.2.840.114 [id number] [facility] 00:00:00 00:00:00 Only Unassigned, MONIQUE 350.1.13.10 ity of [facility] 4.2.7.2.686 Jeff as [phone] [address] 2020-10-30 2020-10-30 Orders Doctor BASILIA 1.2.840.114 [id number] 00:00:00 00:00:00 Only Unassigned, MNOIQUE 350.1.13.10 [facility] 4.2.7.[id number] [facility] 2020-09-26 2020-09-26 Telephone [facility] 1.2.840.114 [id number] [facility] 00:00:00 00:00:00 [facility] [id number] i ty of CLINICS 4[place]2.7.2.[place] [id number] [address] 2020-09-26 2020-09-26 Telephone [facility] 1.2.840.114 [id number] 00:00:00 00:00:00 [facility] [id number] CLINICS 4.2.7.2.686 [id number] 2020-09-01 2020-09-01 Orders Doctor BASILIA 1.2.840.114 [id number] Univers 00:00:00 00:00:00 Only Unassigned, MONIQUE 350.1.13.10 ity of [place] [facility] 4.2.7.2.686 Jeff as [phone] [facility] 009 Branch 2020-09-01 2020-09-01 Orders Doctor BASILIA 1.2.840.114 [id number] 00:00:00 00:00:00 Only Unassigned, MONIQUE 350.1.13.10 [facility] 4.2.7.2.686 [id number] 2020-08-25 2020-08-25 Transition Tuan Peters 1.2.840.114 [id number] Univers 00:00:00 00:00:00 of Care Ruchi Braswell 350.1.13.10 it y of [place] 4[place]7.2.[place] [id number] [facility] 403 Branch 2020-08-25 2020-08-25 Transition Tuan Peters 1.2.840.114 [id number] 00:00:00 00:00:00 of Care Ruchi Braswell [id number] Gay 4.2.7.2.686 [id number] 403 2020-08-21 2020-08-23 [facility] 1. 2.840.114 [id number] [facility] 01:07:00 18:35:00 Encounter Mukul Gallardoy 350.1.13. 10 ity of [facility] 4.2.7.2.686 Jeff as [id number] [facility] 095 Branch 2020-08-21 2020-08-23 [facility] Ayleen 1.2.840.114 [id number] 01:07:00 18:35:00 Encounter Kelly Monique 350.1.13.10 [facility] 4.2.7.2.686 [id number] [id number] Results Test Description Test Time Test Comments Results Result Comments Source POCT GLUCOSE (AUTOMATED) 2020-12-17 15:43:35 Test Item Value Reference Range Interpretation Comme nts POCT GLU (test code = 3075875545) 129 mg/dL 70-110 H Lab Interpretation (test code = 32559-6) Abnormal [facility] METABOLIC PANEL (NA, K, CL, CO2, GLUCOSE, BUN, CREATININE, CA)2020-12-17 11:45:07 Test Item Value Reference Range Interpretation Comments NA (test code = 137 mmol/L 135-145 7462392306) K (test code = 3.5 mmol/L 3.5-5.0 3985760433) CL (test code = 103 mmol/L 98-108 9022448053) CO2 TOTAL (test code = 26 mmol/L 23-31 2211455920) AGAP (test code = 2-16 0764979841) BUN (test code = 11 mg/dL 7-23 2883659570) GLUCOSE (test code = 175 mg/dL 70-110 H 5041466789) CREATININE (test code = 0.62 mg/dL 0.60-1.25 5169915173) CALCIUM (test code = 9.0 mg/dL 8.6-10.6 8631363761) eGFR Calculation mL/min/1.73m2 (Non-) (test code = 7221839327) eGFR Calculation mL/min/1.73m2 () (test code = 4457832319) JAMES (test code = JAMES) Association of [...] tests). Lab Interpretation Abnormal (test code = 70084-8) [facility] WITH [id number] 11:07:27 Test Item Value Reference Range Interpretation [...] RDW-SD (test code = 45.2 fL 38.5-51.6 01621-9) RDW-CV (test code = 16.9 % 12.1-15.4 H 788-0) PLT (test code = See_Comment H [Automated 777-3) message] The sy stem which generated this result transmitted reference range : 150 - 328 10*3/ ?L. The reference r torito was not used to interpret this result as normal/abnormal . MPV (test code = 8.1 fL 9.8-13.0 L 40748-4) NRBC/100 WBC (test See_Comment [Automat ed code = 6057768691) message] The system which generated this result transmitted reference range : 0.0 - 10.0 /100 WBCs. The refer ence range was not u sed to interpret th is result as normal/abnormal . NRBC x10^3 (test code <0.01 See_Comment [Auto mated = 3944509207) message] The s ystem which generated this result transmitted reference range : 10*3/?L. The reference range was not used to interpret this result as normal/abnormal . GRAN MAT (NEUT) % 72.8 % (test code = 770-8) IMM GRAN % (test code 0.60 % = 5236652116) LYMPH % (test code = 18.4 % 736-9) MONO % (test code = 5.7 % 5905-5) EOS % (test code = 1.8 % 713-8) BASO % (test code = 0.7 % 706-2) GRAN MAT x10^3(ANC) 8.23 10*3/uL 1.99-6.95 H (test code = 4634989840) IMM GRAN x10^3 (test 0.07 10*3/uL 0.00-0.06 H code = 0094119790) LYMPH x10^3 (test code 2.08 10*3/uL 1.09-3.23 = 731-0) MONO x10^3 (test code 0.65 10*3/uL 0.36-1.02 = 742-7) EOS x10^3 (test code = 0.20 10*3/uL 0.06-0.53 711-2) BASO x10^3 (test code 0.08 10*3/uL 0.01-0.09 = 704-7) Lab Interpretation Abnormal (test code = 17459-6) [facility] GLUCOSE (AUTOMATED)2020-12-17 06:03:38 Test Item Value Reference Range Interpretation Comments POCT GLU (test code = 1925933794) 75 mg/dL 70-110 Lab Interpretation (test code = Normal 62867-0) [facility], [id number] 00:01:00 Test Item Value Reference Range Interpretation Comments VIT B6 (test code = 13.1 nmol/L 20.0-125.0 L INTERPRE TIVE 42552-6) INFORMATION: Vi tamin B6 (Pyridoxal 5-Phosphate) Pyridoxal 5'-phosphate me asured in a specimen collected follo wing an 8-hour or overnight fast accurately clara cates vitamin B6 nutritional sta tus. Non-fasting spe cimen concentration reflects recent vitamin intake. This test was develo ped and its perform ance characteristics determined by [facility]. I t has not been cleare d or approved by the [place] Food and Drug Administration. This test was perfor med in a CLIA certifie d laboratory and is intended for cl inical purposes.Perfor med By: [employer] [place] [address] [id number] Director: Namrata Klein MD Lab Interpretation Abnormal (test code = 01754-0) [facility]inteXR TIBIA FIBULA 2 VW [id number] 23:57:09 Tricompartmental knee joint osteoarthrosis.XR TIBIA FIBULA 2 VW LEFT INDICATION: Left lower extremity pain from knee down to ankle COMPARISON: None FINDINGS: Moderate to severe tricompartmental knee joint osteoarthrosis. Diffusemuscle atrophy and osteopenia. No acute fracture or dislocation. Nmmb, Radiant Results Inft User - 12/16/2020 5:58 PM CSTXR TIBIA FIBULA 2 VW LEFTINDICATION: Left lower extremity pain from knee down to ankle COMPARISON: NoneFINDINGS:Moderate to severe tricompartmental knee joint osteoarthrosis. Diffusemuscle atrophy and osteopenia. No acute fracture or dislocation.IMPRESSIONTricompartmental knee joint osteoarthrosis.[facility] GLUCOSE (AUTOMATED) 2020-12-16 23:27:00 Test Item Value Reference Range Interpretation Comments POCT GLU (test code = 9216251961) 114 mg/dL 70-110 H Lab Interpretation (test code = Abnormal 86294-7) [facility] GLUCOSE (AUTOMATED)2020-12-16 20:12:00 Test Item Value Reference Range Interpretation Comments POCT GLU (test code = 2957268901) 105 mg/dL 70-110 Lab Interpretation (test code = Normal 35357-0) [facility]2020-12-16 14:44:00 Test Item Value Reference Range Interpretation Comments POCT GLU (test code = 0992845092) 153 mg/dL 70-110 H Lab Interpretation (test code = Abnormal 55198-4) [facility] METABOLIC PANEL (NA, K, CL, CO2, GLUCOSE, BUN, CREATININE, CA)2020-12-16 14:23:00 Test Item Value Reference Range Interpretation Comments NA (test code = 138 mmol/L 135-145 3892280197) K (test code = 3.4 mmol/L 3.5-5.0 L 5831491033) CL (test code = 100 mmol/L 98-108 6994229034) CO2 TOTAL (test code = 31 mmol/L 23-31 8029321604) AGAP (test code = 2-16 1772899582) BUN (test code = 11 mg/dL 7-23 7850697344) GLUCOSE (test code = 162 mg/dL 70-110 H 9046830457) CREATININE (test code = 0.64 mg/dL 0.60-1.25 6709804854) CALCIUM (test code = 8.9 mg/dL 8.6-10.6 8113794932) eGFR Calculation mL/min/1.73m2 (Non-) (test code = 0356327681) eGFR Calculation mL/min/1.73m2 () (test code = 4774910967) JAMES (test code = JAMES) Association of [...] tests). Lab Interpretation Abnormal (test code = 37932-0) [facility] WITH [id number] 14:05:00 Test Item Value Reference Range Interpretation [...] RDW-SD (test code = 45.4 fL 38.5-51.6 13120-6) RDW-CV (test code = 17.0 % 12.1-15.4 H 788-0) PLT (test code = See_Comment H [Automated 777-3) message] The sy stem which generated this result transmitted reference range : 150 - 328 10*3/ ?L. The reference r torito was not used to interpret this result as normal/abnormal . MPV (test code = 8.0 fL 9.8-13.0 L 21923-2) NRBC/100 WBC (test See_Comment [Automat ed code = 6686018293) message] The system which generated this result transmitted reference range : 0.0 - 10.0 /100 WBCs. The refer ence range was not u sed to interpret th is result as normal/abnormal . NRBC x10^3 (test code <0.01 See_Comment [Auto mated = 4504224558) message] The s ystem which generated this result transmitted reference range : 10*3/?L. The reference range was not used to interpret this result as normal/abnormal . GRAN MAT (NEUT) % 70.0 % (test code = 770-8) IMM GRAN % (test code 0.70 % = 8795989975) LYMPH % (test code = 20.5 % 736-9) MONO % (test code = 7.1 % 5905-5) EOS % (test code = 1.0 % 713-8) BASO % (test code = 0.7 % 706-2) GRAN MAT x10^3(ANC) 9.44 10*3/uL 1.99-6.95 H (test code = 1464019834) IMM GRAN x10^3 (test 0.09 10*3/uL 0.00-0.06 H code = 3650462231) LYMPH x10^3 (test code 2.76 10*3/uL 1.09-3.23 = 731-0) MONO x10^3 (test code 0.96 10*3/uL 0.36-1.02 = 742-7) EOS x10^3 (test code = 0.13 10*3/uL 0.06-0.53 711-2) BASO x10^3 (test code 0.10 10*3/uL 0.01-0.09 H = 704-7) Lab Interpretation Abnormal (test code = 24508-4) [facility]inteBlood Culture - Peripheral # [id number] 13:01:00 Test Item Value Reference Range Interpretation Comments Blood Culture-Aerobic No organisms No growth Previo us (test code = 32244-4) isolated prelim inary verified result was Culture In Progress on 12/11/2020 at 100 1 CSTPrevious preliminary verified result was No growth a t 24 hours on 12/12/2020 at 070 1 CSTPrevious preliminary verified result was No growth a t 48 hours on 12/13/2020 at 070 1 CSTPrevious preliminary verified result was No growth a t 72 hours on 12/14/2020 at 070 1 [employer] Blood No organisms No growth Previous Culture-Anaerobic isolated preliminar y (test code = 71781-6) verifi ed result was Culture In Progress on 12/11/2020 at 100 1 CSTPrevious preliminary verified result was No growth a t 24 hours on 12/12/2020 at 070 1 CSTPrevious preliminary verified result was No growth a t 48 hours on 12/13/2020 at 070 1 CSTPrevious preliminary verified result was No growth a t 72 hours on 12/14/2020 at 070 1 [employer] Lab Interpretation Normal (test code = 08386-6) [facility] Culture - Peripheral # [id number] 13:01:00 Test Item Value Reference Range Interpretation Comments Blood Culture-Aerobic No organisms No growth Previo us (test code = 36059-9) isolated prelim inary verified result was Culture In Progress on 12/11/2020 at 100 1 CSTPrevious preliminary verified result was No growth a t 24 hours on 12/12/2020 at 070 1 CSTPrevious preliminary verified result was No growth a t 48 hours on 12/13/2020 at 070 1 CSTPrevious preliminary verified result was No growth a t 72 hours on 12/14/2020 at 070 1 [employer] Blood No organisms No growth Previous Culture-Anaerobic isolated preliminar y (test code = 01746-9) verifi ed result was Culture In Progress on 12/11/2020 at 100 1 CSTPrevious preliminary verified result was No growth a t 24 hours on 12/12/2020 at 070 1 CSTPrevious preliminary verified result was No growth a t 48 hours on 12/13/2020 at 070 1 CSTPrevious preliminary verified result was No growth a t 72 hours on 12/14/2020 at 070 1 [employer] Lab Interpretation Normal (test code = 58672-1) [facility] GLUCOSE (AUTOMATED)2020-12-16 04:01:00 Test Item Value Reference Range Interpretation Comments POCT GLU (test code = 2434579981) 156 mg/dL 70-110 H Lab Interpretation (test code = Abnormal 23927-4) [facility] GLUCOSE (AUTOMATED)2020-12-16 00:24:00 Test Item Value Reference Range Interpretation Comments POCT GLU (test code = 4194389169) 115 mg/dL 70-110 H Lab Interpretation (test code = Abnormal 46135-3) [facility] CHEST PULMONARY [id number] 23:34:55No pulmonary emboli. No interval change in [...] Interpretation Comments POCT GLU (test code = 5601915681) 140 mg/dL 70-110 H Lab Interpretation (test code = Abnormal 96645-5) [facility]inteMAGNESIUM2021-03-05 15:26:00 Test Item Value Reference Range Interpretation Comments MAGNESIUM (test code = 9839317759) 2.2 mg/dL 1.7-2.4 Lab Interpretation (test code = Normal 40073-7) [facility] GLUCOSE (AUTOMATED)2020-12-15 15:15:00 Test Item Value Reference Range Interpretation Comments POCT GLU (test code = 6411687928) 181 mg/dL 70-110 H Lab Interpretation (test code = Abnormal 53845-2) [facility] (NA, K, CL, CO2, GLUCOSE, BUN, CREATININE, CA)2020-12-15 13:07:00 Test Item Value Reference Range Interpretation Comments NA (test code = 136 mmol/L 135-145 9598104890) K (test code = 3.6 mmol/L 3.5-5.0 5819847135) CL (test code = 96 mmol/L 98-108 L 8834596375) CO2 TOTAL (test code = 29 mmol/L 23-31 5383537485) AGAP (test code = 2-16 1827211004) BUN (test code = 12 mg/dL 7-23 8588318556) GLUCOSE (test code = 183 mg/dL 70-110 H 2782229674) CREATININE (test code = 0.70 mg/dL 0.60-1.25 1083074546) CALCIUM (test code = 9.2 mg/dL 8.6-10.6 0796306559) eGFR Calculation mL/min/1.73m2 (Non-) (test code = 4478916143) eGFR Calculation mL/min/1.73m2 () (test code = 8802802552) JAMES (test code = JAMES) Association of [...] tests). Lab Interpretation Abnormal (test code = 69562-5) [facility] WITH [id number] 12:32:00 Test Item Value Reference Range Interpretation Comments WBC (test code = See_Comment H [Automated 4090-2) message] The system which generated this result transmit ronan reference range : 4.20 - 10.70 10*3/?L. The reference range was not used to interpret this result as normal/abnormal . RBC (test code = See_Comment H [Automated 629-8) message] The system which generated this result [...] RDW-SD (test code = 44.4 fL 38.5-51.6 69442-1) RDW-CV (test code = 17.7 % 12.1-15.4 H 788-0) PLT (test code = See_Comment H [Automated 777-3) message] The system which generated this result transmit ronan reference range : 150 - 328 10*3/ ?L. The reference range was not u sed to interpret th is result as normal/abnormal . MPV (test code = 8.1 fL 9.8-13.0 L 74693-3) NRBC/100 WBC (test See_Comment [Automat ed code = 8388913767) message] The system which generated this result transmit ronan reference range : 0.0 - 10.0 /100 WBCs. The reference range was not used to interpret this result as normal/abnormal . NRBC x10^3 (test code <0.01 See_Comment [Auto mated = 8259752597) message] The system which generated this result transmit ronan reference range : 10*3/?L. The reference range was not used to interpret this result as normal/abnormal . GRAN MAT (NEUT) % 74.5 % (test code = 770-8) IMM GRAN % (test code 0.70 % = 2991670036) LYMPH % (test code = 17.4 % 736-9) MONO % (test code = 6.8 % 5905-5) EOS % (test code = 0.2 % 713-8) BASO % (test code = 0.4 % 706-2) GRAN MAT x10^3(ANC) 11.99 10*3/uL 1.99-6.95 H (test code = 1964169534) IMM GRAN x10^3 (test 0.11 10*3/uL 0.00-0.06 H code = 3511164881) LYMPH x10^3 (test code 2.80 10*3/uL 1.09-3.23 = 731-0) MONO x10^3 (test code 1.10 10*3/uL 0.36-1.02 H = 742-7) EOS x10^3 (test code = 0.03 10*3/uL 0.06-0.53 L 711-2) BASO x10^3 (test code 0.06 10*3/uL 0.01-0.09 = 704-7) Lab Interpretation Abnormal (test code = 26328-1) [facility] GLUCOSE (AUTOMATED)2020-12-15 04:16:00 Test Item Value Reference Range Interpretation Comments POCT GLU (test code = 4998812225) 200 mg/dL 70-110 H Lab Interpretation (test code = Abnormal 34394-7) [facility] B1 (THIAMINE), WHOLE [id number] 00:30:00 Test Item Value Reference Range Interpretation Comments Vitamin B1, Whole 136 nmol/L 70-180 INTERPRETI VE INFORMATION: Blood (test code = Vitamin B 1, Whole Blood 54430-0) This assay júnior ures the concentration o [...] clinical purposes.Perfor med By: [facility] [employer] [facility] [place] [address] [id number] aboratory Director: Namrata Klein MD [facility] GLUCOSE (AUTOMATED)2020-12-14 23:35:00 Test Item Value Reference Range Interpretation Comments POCT GLU (test code = 2475893545) 151 mg/dL 70-110 H Lab Interpretation (test code = Abnormal 21174-1) [facility] GLUCOSE (AUTOMATED)2020-12-14 19:19:00 Test Item Value Reference Range Interpretation Comments POCT GLU (test code = 7786869931) 193 mg/dL 70-110 H Lab Interpretation (test code = Abnormal 36303-5) [facility] GLUCOSE (AUTOMATED)2020-12-14 15:22:00 Test Item Value Reference Range Interpretation Comments POCT GLU (test code = 7048695439) 221 mg/dL 70-110 H Lab Interpretation (test code = Abnormal 37819-9) [facility] GLUCOSE (AUTOMATED)2020-12-14 02:37:00 Test Item Value Reference Range Interpretation Comments POCT GLU (test code = 6056646792) 210 mg/dL 70-110 H Lab Interpretation (test code = Abnormal 73304-6) [facility] GLUCOSE (AUTOMATED)2020-12-13 23:33:00 Test Item Value Reference Range Interpretation Comments POCT GLU (test code = 6631298624) 182 mg/dL 70-110 H Lab Interpretation (test code = Abnormal 17658-5) [facility] GLUCOSE (AUTOMATED)2020-12-13 18:09:00 Test Item Value Reference Range Interpretation Comments POCT GLU (test code = 1311700524) 150 mg/dL 70-110 H Lab Interpretation (test code = Abnormal 95533-8) [facility] METABOLIC PANEL (NA, K, CL, CO2, GLUCOSE, BUN, CREATININE, CA)2020-12-13 16:27:00 Test Item Value Reference Range Interpretation Comments NA (test code = 136 mmol/L 135-145 3423737741) K (test code = 3.7 mmol/L 3.5-5.0 8690204655) CL (test code = 96 mmol/L 98-108 L 2109252506) CO2 TOTAL (test code = 29 mmol/L 23-31 5446070330) AGAP (test code = 2-16 5416740688) BUN (test code = 6 mg/dL 7-23 L 9194352601) GLUCOSE (test code = 212 mg/dL 70-110 H 1522310839) CREATININE (test code = 0.61 mg/dL 0.60-1.25 6492131478) CALCIUM (test code = 9.5 mg/dL 8.6-10.6 9626597194) eGFR Calculation mL/min/1.73m2 (Non-) (test code = 2889555236) eGFR Calculation mL/min/1.73m2 () (test code = 7805979275) JAMES (test code = JAMES) Association of [...] tests). Lab Interpretation Abnormal (test code = 42504-7) [facility] WITH [id number] 16:10:00 Test Item Value Reference Range Interpretation Comments WBC (test code = See_Comment H [Automated 9090-2) message] The sy stem which generated this result transmitted reference range : 4.20 - 10.70 10*3/?L. The reference range was not used to interpret this result as normal/abnormal . RBC (test code = See_Comment H [Automated 049-8) message] The sy stem which generated this [...] RDW-SD (test code = 43.3 fL 38.5-51.6 18471-6) RDW-CV (test code = 16.2 % 12.1-15.4 H 788-0) PLT (test code = See_Comment H [Automated 777-3) message] The sy stem which generated this result transmitted reference range : 150 - 328 10*3/ ?L. The reference r torito was not used to interpret this result as normal/abnormal . MPV (test code = 8.2 fL 9.8-13.0 L 26822-5) NRBC/100 WBC (test See_Comment [Automat ed code = 2813438882) message] The system which generated this result transmitted reference range : 0.0 - 10.0 /100 WBCs. The refer ence range was not u sed to interpret th is result as normal/abnormal . NRBC x10^3 (test code <0.01 See_Comment [Auto mated = 8900533429) message] The s ystem which generated this result transmitted reference range : 10*3/?L. The reference range was not used to interpret this result as normal/abnormal . GRAN MAT (NEUT) % 86.2 % (test code = 770-8) IMM GRAN % (test code 0.70 % = 9228499576) LYMPH % (test code = 10.2 % 736-9) MONO % (test code = 2.5 % 5905-5) EOS % (test code = 0.1 % 713-8) BASO % (test code = 0.3 % 706-2) GRAN MAT x10^3(ANC) 9.61 10*3/uL 1.99-6.95 H (test code = 9404332801) IMM GRAN x10^3 (test 0.08 10*3/uL 0.00-0.06 H code = 4563373552) LYMPH x10^3 (test code 1.14 10*3/uL 1.09-3.23 = 731-0) MONO x10^3 (test code 0.28 10*3/uL 0.36-1.02 L = 742-7) EOS x10^3 (test code = <0.03 0.06-0.53 L 711-2) BASO x10^3 (test code 0.03 10*3/uL 0.01-0.09 = 704-7) Lab Interpretation Abnormal (test code = 43881-3) [facility]2020-12-13 14:16:00 Test Item Value Reference Range Interpretation Comments POCT GLU (test code = 7111969329) 236 mg/dL 70-110 H Lab Interpretation (test code = Abnormal 94610-1) [facility] ONLY COVID [id number] 04:58:00COVID DMT InterpretationInterpretation/Recommendations: Molecular NAAT Tests for [...] COVID-19 testing the patient has had at [facility], including molecular NAAT testing (more commonly known as PCR testing and Rapid ID Now testing) and antibody testing. It does not take into account any testingthat a patient has had outside of the [facility] medical record. [facility] LABORATORY SERVICESCOVID DvnnztpDITR-PrD-6 Rapid ID NOW (no units) ? ? Date ? Value ? 12/11/2020 ? Not Detected ? ? ? 11/16/2020 ? Not Detected ? ? ? 08/21/2020 ? Not Detected ? [facility] 2020-12-13 03:11:00 Test Item Value Reference Range Interpretation Comments POCT GLU (test code = 3571693836) 171 mg/dL 70-110 H Lab Interpretation (test code = Abnormal 38781-5) [facility] GLUCOSE (AUTOMATED)2020-12-13 00:00:00 Test Item Value Reference Range Interpretation Comments POCT GLU (test code = 9893758124) 118 mg/dL 70-110 H Lab Interpretation (test code = Abnormal 81840-3) [facility] GLUCOSE (AUTOMATED)2020-12-12 20:29:00 Test Item Value Reference Range Interpretation Comments POCT GLU (test code = 4327042020) 173 mg/dL 70-110 H Lab Interpretation (test code = Abnormal 12355-3) [facility] ABDOMEN [id number] 19:56:17 1. ?Hepatic steatosis. However, limited evaluation [...] main portal veinwasevaluated with color Doppler imaging. Contract Technical Writer images were obtainedfor the record. COMPARISON: Ultrasound [...] portal vein wasevaluated with color Doppler imaging. [employer] Technical Writer images wereobtainedfor the record.COMPARISON: Ultrasound abdomen 11/17/2028. [...] abovereport.[facility])2020-12-12 19:24:00 Test Item Value Reference Range Interpretation Comments POCT GLU (test code = 2383177616) 230 mg/dL 70-110 H Lab Interpretation (test code = Abnormal 49736-3) [facility]XR CHEST 1 [id number] 15:16:46 Low lung volumes with mild perihilar [...] report.[facility]ATED)2020-12-12 14:34:00 Test Item Value Reference Range Interpretation Comments POCT GLU (test code = 5040274759) 225 mg/dL 70-110 H Lab Interpretation (test code = Abnormal 36682-1) [facility]inteURINE [id number] 13:28:00 Test Item Value Reference Range Interpretation Comments URINE CULTURE (test < 10,000 CFU/mL mixed code = 630-4) aerobic organisms - suggests endogenous microbial contamination [facility]inteBasic Metabolic Panel (NA, K, CL, CO2, GLUCOSE, BUN, CREATININE, CA)2020-12-12 10:05:00 Test Item Value Reference Range Interpretation Comments NA (test code = 136 mmol/L 135-145 4432003916) K (test code = 3.5 mmol/L 3.5-5.0 2611606695) CL (test code = 100 mmol/L 98-108 7607890981) CO2 TOTAL (test code = 31 mmol/L 23-31 7219084182) AGAP (test code = 2-16 3965267530) BUN (test code = 7 mg/dL 7-23 4507622515) GLUCOSE (test code = 259 mg/dL 70-110 H 6997073200) CREATININE (test code = 0.63 mg/dL 0.60-1.25 4882695210) CALCIUM (test code = 8.5 mg/dL 8.6-10.6 L 0207939552) eGFR Calculation mL/min/1.73m2 (Non-) (test code = 4995764561) eGFR Calculation mL/min/1.73m2 () (test code = 1448850046) JAMES (test code = JAMES) Association of [...] tests). Lab Interpretation Abnormal (test code = 04766-9) [facility] PointeMagnesium [id number] 10:05:00 Test Item Value Reference Range Interpretation Comments MAGNESIUM (test code = 6856066920) 1.9 mg/dL 1.7-2.4 Lab Interpretation (test code = Normal 79479-3) [facility] with [id number] 09:48:00 Test Item Value Reference Range Interpretation Comments WBC (test code = See_Comment [Automated 0090-2) message] The sy stem which generated this [...] RDW-SD (test code = 46.0 fL 38.5-51.6 47727-7) RDW-CV (test code = 16.1 % 12.1-15.4 H 788-0) PLT (test code = See_Comment H [Automated 777-3) message] The sy stem which generated this result transmitted reference range : 150 - 328 10*3/ ?L. The reference r torito was not used to interpret this result as normal/abnormal . MPV (test code = 8.6 fL 9.8-13.0 L 31432-7) NRBC/100 WBC (test See_Comment [Automat ed code = 8691745084) message] The system which generated this result transmitted reference range : 0.0 - 10.0 /100 WBCs. The refer ence range was not u sed to interpret th is result as normal/abnormal . NRBC x10^3 (test code <0.01 See_Comment [Auto mated = 0787160392) message] The s ystem which generated this result transmitted reference range : 10*3/?L. The reference range was not used to interpret this result as normal/abnormal . GRAN MAT (NEUT) % 70.2 % (test code = 770-8) IMM GRAN % (test code 0.30 % = 7040251049) LYMPH % (test code = 18.8 % 736-9) MONO % (test code = 5.0 % 5905-5) EOS % (test code = 5.2 % 713-8) BASO % (test code = 0.5 % 706-2) GRAN MAT x10^3(ANC) 6.05 10*3/uL 1.99-6.95 (test code = 5917690055) IMM GRAN x10^3 (test 0.03 10*3/uL 0.00-0.06 code = 2075427983) LYMPH x10^3 (test code 1.62 10*3/uL 1.09-3.23 = 731-0) MONO x10^3 (test code 0.43 10*3/uL 0.36-1.02 = 742-7) EOS x10^3 (test code = 0.45 10*3/uL 0.06-0.53 711-2) BASO x10^3 (test code 0.04 10*3/uL 0.01-0.09 = 704-7) Lab Interpretation Abnormal (test code = 08804-1) [facility])2020-12-12 03:42:00 Test Item Value Reference Range Interpretation Comments POCT GLU (test code = 196 mg/dL 70-110 H Notifi ed Provider 8048370649) Lab Interpretation (test Abnormal code = 59698-7) [facility] PointeFOLATE2021-03-02 02:24:00 Test Item Value Reference Range Interpretation Comments FOLATE SER (test code = 5439561522) 5.8 ng/mL 3.0-20.0 Lab Interpretation (test code = Normal 76629-1) [facility] PointeVITAMIN B12, [id number] 00:55:00 Test Item Value Reference Range Interpretation Comments VIT B12 (test code = 844 pg/mL 240-930 1118774712) JAMES (test code = JAMES) Biotin has been reported to cause a positive bias, interpret results relative to patient's use of biotin. Lab Interpretation (test Normal code = 06931-2) [facility] (AUTOMATED)2020-12-12 00:14:00 Test Item Value Reference Range Interpretation Comments POCT GLU (test code = 8345463937) 164 mg/dL 70-110 H Lab Interpretation (test code = Abnormal 20445-1) [facility] PointeCREATINE [id number] 23:42:00 Test Item Value Reference Range Interpretation Comments CK (test code = 2234759038) <20 33-194 L Lab Interpretation (test code = Abnormal 90777-6) [facility] PointeTHYROID STIMULATING [id number] 23:17:00 Test Item Value Reference Range Interpretation Comments TSH (test code = See_Comment Biotin has been 0030619677) reported to cau se a negative bias, interpret resul ts relative to pat sanju's use of biotin. [Automated mess age] The system Mim[employer] generated this result transmitted ref erence range: 0.45 - 4 .70 mIU/L. The refe rence range was not u sed to interpret this result as normal/abnor mal. Lab Interpretation (test Normal code = 13317-8) [facility]inteXR HIPS 3 VW [id number] 21:41:53No appreciable fracture lines. RL: 6200 ICAL [...] osseous erosions.IMPRESSIONNo appreciable fracture lines.RL: 6200 [facility]PROCAL[facility]IN20[facility] 20:00:00 Test Item Value Reference Range Interpretation Comments Procalcitonin (test 0.13 ng/mL <0.07 H code = 2739376288) JAMES (test code = JAMES) INTERPRETATION OF [...] lung abscess/empyema. For further information please refer to:[email or web address] Lab Interpretation Abnormal (test code = 10763-3) [facility]AUTOMATED)2020-12-11 19:07:00 Test Item Value Reference Range Interpretation Comments POCT GLU (test code = 4007173900) 274 mg/dL 70-110 H Lab Interpretation (test code = Abnormal 01376-0) [facility]NESIUM2021-03-01 18:31:00 Test Item Value Reference Range Interpretation Comments MAGNESIUM (test code = 8549656482) 1.9 mg/dL 1.7-2.4 Lab Interpretation (test code = Normal 39387-8) [facility]inteFERRITIN [id number] 18:31:00 Test Item Value Reference Range Interpretation Comments FERRITIN (test code = 178.0 ng/mL 18.0-464.0 5261780855) JAMES (test code = JAMES) Biotin has been reported to cause a negative bias, interpret results relative to patient's use of biotin. Lab Interpretation (test Normal code = 10953-3) [facility] HEAD WO [id number] 14:36:47 No acute intracranial abnormality. Dilated ventricles [...] abovereport.[facility]inteURINALYSIS2021-03-01 14:28:00 Test Item Value Reference Range Interpretation Comments APPEARANCE (test code = Clear Clear 0320637444) COLOR (test code = Yellow Yellow 5875123870) PH (test code = 4.8-8.0 1887178401) SP GRAVITY (test code = 1.003-1.030 1956635607) GLU U QUAL (test code = 500 mg/dL Normal A 7244234967) BLOOD (test code = Negative Negative 8216257992) KETONES (test code = 5 mg/dL Negative A 0406359716) PROTEIN (test code = Negative Negative 2887-8) UROBILIN (test code = Normal Normal 8073332602) BILIRUBIN (test code = Negative Negative 7922922381) NITRITE (test code = Negative Negative 0322472478) LEUK RYAN (test code = Negative Negative 8884181233) RBC/HPF (test code = See_Comment [Autom ated message] 3258951928) The system Mimoona generated this result transmit ronan reference range : 0 - 3 HPF. The refe rence range was not u sed to interpret th is result as normal/abnormal . WBC/HPF (test code = See_Comment [Autom ated message] 2089083852) The system Mimoona generated this result transmit ronan reference range : 0 - 5 HPF. The refe rence range was not u sed to interpret th is result as normal/abnormal . BACTERIA (test code = Negative Negative 7960357881) MUCOUS (test code = Slight Negative LPF A 6467272289) SQ EPITH (test code = HPF 0580160337) Lab Interpretation (test Abnormal code = 79015-1) [facility]OVID-19 (ID NOW RAPID TESTING)2020-12-11 13:10:00 Test Item Value Reference Range Interpretation Comments SARS-CoV-2 Rapid ID NOW Not Detected Not Detected (test code = 03178-7) JAMES (test code = JAMES) ID NOW COVID-19 Assay is an isothermal nucleic acid amplification test intended for the qualitative detection of nucleic acid from SARS-CoV-2 viral RNA in nasopharyngeal (LEGAL WORD PROCESSOR) specimens. It is used under Emergency Use [...] indicated. Lab Interpretation Normal (test code = 61150-5) [facility]inteCOM. METABOLIC PANEL (71004)2020-12-11 12:29:00 Test Item Value Reference Range Interpretation Comments NA (test code = 136 mmol/L 135-145 5687256734) K (test code = 3.5 mmol/L 3.5-5.0 1746541526) CL (test code = 95 mmol/L 98-108 L 4883587193) CO2 TOTAL (test code = 35 mmol/L 23-31 H 7245497176) AGAP (test code = 2-16 5506626304) BUN (test code = 9 mg/dL 7-23 9697058476) GLUCOSE (test code = 329 mg/dL 70-110 H 2327230214) CREATININE (test code = 0.72 mg/dL 0.60-1.25 6462017322) TOTAL BILI (test code = 0.6 mg/dL 0.1-1.1 1182875243) CALCIUM (test code = 9.0 mg/dL 8.6-10.6 4875659336) T PROTEIN (test code = 6.8 g/dL 6.3-8.2 7186748392) ALBUMIN (test code = 3.8 g/dL 3.5-5.0 5883258270) ALK PHOS (test code = 288 U/L 34-122 H 5180048250) ALTv (test code = 46 U/L 5-50 1742-6) AST(SGOT) (test code = 38 U/L 13-40 3439177249) eGFR Calculation mL/min/1.73m2 (Non-) (test code = 9734978544) eGFR Calculation mL/min/1.73m2 () (test code = 3560664386) JAMES (test code = JAMES) Association of [...] tests). Lab Interpretation Abnormal (test code = 48724-4) [facility]inteLactic Acid Whole [id number] 12:23:00 Test Item Value Reference Range Interpretation Comments LACTIC ACID (test code = 2.09 mmol/L 0.50-2.20 3275594690) Lab Interpretation (test code = Normal 14878-9) [facility] WITH [id number] 12:17:00 Test Item Value Reference Range Interpretation Comments WBC (test code = See_Comment H [Automated 2298-2) message] The sy stem which generated this result transmitted reference range : 4.20 - 10.70 10*3/?L. The reference range was not used to interpret this result as normal/abnormal . RBC (test code = See_Comment [Automated 436-8) message] The sy stem which generated this [...] RDW-SD (test code = 44.9 fL 38.5-51.6 56520-5) RDW-CV (test code = 15.9 % 12.1-15.4 H 788-0) PLT (test code = See_Comment H [Automated 777-3) message] The sy stem which generated this result transmitted reference range : 150 - 328 10*3/ ?L. The reference r torito was not used to interpret this result as normal/abnormal . MPV (test code = 8.3 fL 9.8-13.0 L 14085-2) NRBC/100 WBC (test See_Comment [Automat ed code = 1798831672) message] The system which generated this result transmitted reference range : 0.0 - 10.0 /100 WBCs. The refer ence range was not u sed to interpret th is result as normal/abnormal . NRBC x10^3 (test code <0.01 See_Comment [Auto mated = 7081223607) message] The s ystem which generated this result transmitted reference range : 10*3/?L. The reference range was not used to interpret this result as normal/abnormal . GRAN MAT (NEUT) % 77.9 % (test code = 770-8) IMM GRAN % (test code 0.50 % = 3935156570) LYMPH % (test code = 12.2 % 736-9) MONO % (test code = 5.2 % 5905-5) EOS % (test code = 3.7 % 713-8) BASO % (test code = 0.5 % 706-2) GRAN MAT x10^3(ANC) 9.57 10*3/uL 1.99-6.95 H (test code = 1440901830) IMM GRAN x10^3 (test 0.06 10*3/uL 0.00-0.06 code = 9608448570) LYMPH x10^3 (test code 1.50 10*3/uL 1.09-3.23 = 731-0) MONO x10^3 (test code 0.64 10*3/uL 0.36-1.02 = 742-7) EOS x10^3 (test code = 0.46 10*3/uL 0.06-0.53 711-2) BASO x10^3 (test code 0.06 10*3/uL 0.01-0.09 = 704-7) Lab Interpretation Abnormal (test code = 30431-0) [facility]inteLAB ONLY COVID [id number] 18:43:00COVID DMT InterpretationInterpretation/Recommendations: Molecular NAAT Test Results [...] a nasopharyngeal sample, there is approximately a fcq-my-qcoto chance that the patient was infected and [...] based upon aggregate data pooled from the [facility] medical recordincluding both current and prior COVID-19 related testing results for the following tests offered atour institution:A. Tests for the Identification of SARS-CoV-2 RNA:SARS-CoV-2 PCR assays including Enders Aptima, Enders Fusion, Barrett RealTime, and QR Wildert Xpress. SARS-CoV-2 Rapid ID NOW by the ID NOW assay. ? B. Tests for the Identification of SARS-CoV-2 Antibodies: Chemiluminescent immunoassays including Access SARS-CoV-2 IgM (DXI 600), VITROS Kldp-VGZO-YsV-2 IgG (Vitros 5600 and Vitros 3600), and Barrett SARS-CoV-2 IgG (OFFICE LEAD I System). These interpretation comments assume that only the above testing was utilized and that the approved acceptable specimen type(s) were used for a given test. These interpretations are autopopulated into [employer] based on computerized algorithms matching an interpretation code number to the patient's set of test results. While a clinical pathologist evaluates the combinations for clinical accuracy, clinical correlation is recommended as it may not take into account very remote prior testing. Furthermore, it does not consider testing a patient may have had outside of the [facility] system. Additionally, it should be noted that the computerized algorithm treats the results for PCR testing and Rapid ID NOW testing (also PCR) synonymously, and thus, refers to both testing methodologies as PCR tests. Given that the sensitivity of [facility]'s Rapid ID NOW testing platform is [...] pathogen panel may be beneficialin this setting. [facility] LABORATORY SERVICESCOVID YdoguozLJJK-EaC-4 Rapid ID NOW (no units) ? ? Date ? Value ? 08/21/2020 ? Not Detected ? [facility] LABORATORY SERVICESUnFormerly [facility] HospitalPOCT GLUCOSE (AUTOMATED)2020-08-23 18:25:00 Test Item Value Reference Range Interpretation Comments POCT GLU (test code = 6495662029) 297 mg/dL 70-110 H Lab Interpretation (test code = Abnormal 82100-5) [facility] (AUTOMATED)2020-08-23 14:25:00 Test Item Value Reference Range Interpretation Comments POCT GLU (test code = 0554350092) 181 mg/dL 70-110 H Lab Interpretation (test code = Abnormal 72384-0) [facility] Met[facility] Panel (NA, K, CL, CO2, GLUCOSE, BUN, CREATININE, CA)2020-08-23 11:45:00 Test Item Value Reference Range Interpretation Comments NA (test code = 132 mmol/L 135-145 L 8917382419) K (test code = 4.0 mmol/L 3.5-5 2085451086) CL (test code = 96 mmol/L 98-108 L 8800738094) CO2 TOTAL (test code = 33 mmol/L 23-31 H 6054219797) AGAP (test code = 2-16 1810130106) BUN (test code = 9 mg/dL 7-23 9166284471) GLUCOSE (test code = 176 mg/dL 70-110 H 4038819320) CREATININE (test code = 0.66 mg/dL 0.6-1.25 4144710774) CALCIUM (test code = 8.5 mg/dL 8.6-10.6 L 7912366497) eGFR Calculation mL/min/1.73m2 (Non-) (test code = 1948169680) eGFR Calculation mL/min/1.73m2 () (test code = 5265333131) JAMES (test code = JAMES) Association of [...] tests). Lab Interpretation Abnormal (test code = 75755-7) [facility] PointeMagnesium [id number] 11:45:00 Test Item Value Reference Range Interpretation Comments MAGNESIUM (test code = 1343211045) 2.0 mg/dL 1.7-2.4 Lab Interpretation (test code = Normal 74885-2) [facility] with [id number] 11:38:00 Test Item Value Reference Range Interpretation Comments WBC (test code = See_Comment [Automated 3290-2) message] The sy stem which generated this result transmitted reference range : 4.20 - 10.70 10*3/?L. The reference range was not used to interpret this result as normal/abnormal . RBC (test code = See_Comment [Automated 539-8) message] The sy stem which [...] RDW-SD (test code = 41.8 fL 38.5-51.6 45910-8) RDW-CV (test code = 14.3 % 12.1-15.4 788-0) PLT (test code = See_Comment H [Automated 777-3) message] The sy stem which generated this result transmitted reference range : 150 - 328 10*3/ ?L. The reference r torito was not used to interpret this result as normal/abnormal . MPV (test code = 8.0 fL 9.8-13 L 22065-8) NRBC/100 WBC (test See_Comment [Automat ed code = 5995779084) message] The system which generated this result transmitted reference range : 0.0 - 10.0 /100 WBCs. The refer ence range was not u sed to interpret th is result as normal/abnormal . NRBC x10^3 (test code <0.01 See_Comment [Auto mated = 3567034818) message] The s ystem which generated this result transmitted reference range : 10*3/?L. The reference range was not used to interpret this result as normal/abnormal . GRAN MAT (NEUT) % 61.5 % (test code = 770-8) IMM GRAN % (test code 2.00 % = 9236816399) LYMPH % (test code = 25.5 % 736-9) MONO % (test code = 6.3 % 5905-5) EOS % (test code = 3.7 % 713-8) BASO % (test code = 1.0 % 706-2) GRAN MAT x10^3(ANC) 5.29 10*3/uL 1.99-6.95 (test code = 5337560961) IMM GRAN x10^3 (test 0.17 10*3/uL 0-0.06 H code = 5097586317) LYMPH x10^3 (test code 2.19 10*3/uL 1.09-3.23 = 731-0) MONO x10^3 (test code 0.54 10*3/uL 0.36-1.02 = 742-7) EOS x10^3 (test code = 0.32 10*3/uL 0.06-0.53 711-2) BASO x10^3 (test code 0.09 10*3/uL 0.01-0.09 = 704-7) Lab Interpretation Abnormal (test code = 40761-7) [facility] GLUCOSE (AUTOMATED)2020-08-23 10:22:00 Test Item Value Reference Range Interpretation Comments POCT GLU (test code = 3383735549) 164 mg/dL 70-110 H Lab Interpretation (test code = Abnormal 93127-5) [facility] GLUCOSE (AUTOMATED)2020-08-23 05:56:00 Test Item Value Reference Range Interpretation Comments POCT GLU (test code = 9441775078) 242 mg/dL 70-110 H Lab Interpretation (test code = Abnormal 45587-2) [facility] GLUCOSE (AUTOMATED)2020-08-23 03:02:00 Test Item Value Reference Range Interpretation Comments POCT GLU (test code = 1329591525) 210 mg/dL 70-110 H Lab Interpretation (test code = Abnormal 17552-1) [facility] GLUCOSE (AUTOMATED)2020-08-22 23:40:00 Test Item Value Reference Range Interpretation Comments POCT GLU (test code = 8790768311) 267 mg/dL 70-110 H Lab Interpretation (test code = Abnormal 13967-0) [facility] GLUCOSE (AUTOMATED)2020-08-22 19:08:00 Test Item Value Reference Range Interpretation Comments POCT GLU (test code = 8953155780) 191 mg/dL 70-110 H Lab Interpretation (test code = Abnormal 64055-1) [facility] GLUCOSE (AUTOMATED)2020-08-22 13:50:00 Test Item Value Reference Range Interpretation Comments POCT GLU (test code = 1621846551) 174 mg/dL 70-110 H Lab Interpretation (test code = Abnormal 36603-7) [facility]inteURINE [id number] 12:59:00 Test Item Value Reference Range Interpretation Comments URINE CULTURE (test No aerobic growth (< code = 630-4) 1000 CFU/mL) [facility] with [id number] 11:28:00 Test Item Value Reference Range Interpretation Comments WBC (test code = See_Comment [Automated 1290-2) message] The sy stem which [...] RDW-SD (test code = 42.5 fL 38.5-51.6 23887-4) RDW-CV (test code = 14.5 % 12.1-15.4 788-0) PLT (test code = See_Comment H [Automated 777-3) message] The sy stem which generated this result transmitted reference range : 150 - 328 10*3/ ?L. The reference r torito was not used to interpret this result as normal/abnormal . MPV (test code = 8.0 fL 9.8-13 L 89493-7) NRBC/100 WBC (test See_Comment [Automat ed code = 0430926628) message] The system which generated this result transmitted reference range : 0.0 - 10.0 /100 WBCs. The refer ence range was not u sed to interpret th is result as normal/abnormal . NRBC x10^3 (test code <0.01 See_Comment [Auto mated = 1670307960) message] The s ystem which generated this result transmitted reference range : 10*3/?L. The reference range was not used to interpret this result as normal/abnormal . GRAN MAT (NEUT) % 69.1 % (test code = 770-8) IMM GRAN % (test code 2.20 % = 7727047500) LYMPH % (test code = 20.9 % 736-9) MONO % (test code = 5.8 % 5905-5) EOS % (test code = 1.0 % 713-8) BASO % (test code = 1.0 % 706-2) GRAN MAT x10^3(ANC) 6.51 10*3/uL 1.99-6.95 (test code = 5849240354) IMM GRAN x10^3 (test 0.21 10*3/uL 0-0.06 H code = 9072382904) LYMPH x10^3 (test code 1.97 10*3/uL 1.09-3.23 = 731-0) MONO x10^3 (test code 0.55 10*3/uL 0.36-1.02 = 742-7) EOS x10^3 (test code = 0.09 10*3/uL 0.06-0.53 711-2) BASO x10^3 (test code 0.09 10*3/uL 0.01-0.09 = 704-7) BASO STIPPLING (test Present A code = 703-9) BANDS (test code = Increased A 0445802570) TOXIC CHANGES (test Present A code = 803-7) Lab Interpretation Abnormal (test code = 74920-5) [facility] Metabolic Panel (NA, K, CL, CO2, GLUCOSE, BUN, CREATININE, CA)2020-08-22 11:12:00 Test Item Value Reference Range Interpretation Comments NA (test code = 135 mmol/L 135-145 9865772427) K (test code = 3.6 mmol/L 3.5-5 5743081937) CL (test code = 99 mmol/L 98-108 6240941742) CO2 TOTAL (test code = 31 mmol/L 23-31 4816721829) AGAP (test code = 2-16 8487947572) BUN (test code = 9 mg/dL 7-23 3768173750) GLUCOSE (test code = 198 mg/dL 70-110 H 3336089535) CREATININE (test code = 0.72 mg/dL 0.6-1.25 2429651131) CALCIUM (test code = 8.3 mg/dL 8.6-10.6 L 9621927349) eGFR Calculation mL/min/1.73m2 (Non-) (test code = 4513870687) eGFR Calculation mL/min/1.73m2 () (test code = 1251254760) JAMES (test code = JAMES) Association of [...] tests). Lab Interpretation Abnormal (test code = 33385-7) [facility]inteMagnesium [id number] 11:12:00 Test Item Value Reference Range Interpretation Comments MAGNESIUM (test code = 2541670636) 2.0 mg/dL 1.7-2.4 Lab Interpretation (test code = Normal 76678-1) [facility]inteLipid Panel (Total Cholesterol, Triglycerides, HDL) - [id number] 11:12:00 Test Item Value Reference Range Interpretation Comments CHOL (test code = 155 mg/dL 120-200 7056765375) HDL (test code = 42 mg/dL >40 8812581384) HDLC RATIO (test code = See_Comment [Au tomated message] 3675099858) The system Mimoona generated this result transmit ronan reference range : <=5.0. The refe rence range was not u sed to interpret th is result as normal/abnormal . TRIG (test code = 186 mg/dL 30-170 H 4682793123) LDL CHOL (test code = 76 mg/dL See_Comment [Auto mated message] 63407-9) The system Mimoon[employer] generated this result transmit ronan reference range : <=160. The refe rence range was not u sed to interpret th is result as normal/abnormal . VLDL (test code = 37 mg/dL 5-60 2672429796) Lab Interpretation (test Abnormal code = 72162-0) [facility] PointeHEPATIC FUNCTION PANEL (11999) (ALB,T.PRO,BILI T,BU/BC,ALT,AST,ALK PHOS)2020-08-22 11:12:00 Test Item Value Reference Range Interpretation Comments TOTAL BILI (test code = 7376927756) 0.6 mg/dL 0.1-1.1 BILI UNCON (test code = 6100439528) 0.2 mg/dL 0.1-1.1 BILI CONJ (test code = 9372281571) 0.0 mg/dL 0-0.3 T PROTEIN (test code = 2681736795) 6.0 g/dL 6.3-8.2 L ALBUMIN (test code = 0722133785) 2.8 g/dL 3.5-5 L ALK PHOS (test code = 4170268965) 222 U/L 34-122 H ALTv (test code = 1742-6) 27 U/L 5-50 AST(SGOT) (test code = 8412195636) 30 U/L 13-40 Lab Interpretation (test code = Abnormal 89484-9) [facility] GLUCOSE (AUTOMATED)2020-08-22 10:11:00 Test Item Value Reference Range Interpretation Comments POCT GLU (test code = 7922426558) 196 mg/dL 70-110 H Lab Interpretation (test code = Abnormal 26526-8) [facility] GLUCOSE (AUTOMATED)2020-08-22 07:15:00 Test Item Value Reference Range Interpretation Comments POCT GLU (test code = 7603229555) 183 mg/dL 70-110 H Lab Interpretation (test code = Abnormal 56604-5) [facility] GLUCOSE (AUTOMATED)2020-08-22 02:30:00 Test Item Value Reference Range Interpretation Comments POCT GLU (test code = 4875024897) 295 mg/dL 70-110 H Lab Interpretation (test code = Abnormal 33963-5) [facility] GLUCOSE (AUTOMATED)2020-08-21 23:46:00 Test Item Value Reference Range Interpretation Comments POCT GLU (test code = 7955030118) 258 mg/dL 70-110 H Lab Interpretation (test code = Abnormal 03425-7) [facility] PointeC-REACTIVE [id number] 18:50:00 Test Item Value Reference Range Interpretation Comments CRP (test code = 6040537839) 15.5 mg/dL <0.8 H Lab Interpretation (test code = Abnormal 80101-3) [facility] GLUCOSE (AUTOMATED)2020-08-21 18:21:00 Test Item Value Reference Range Interpretation Comments POCT GLU (test code = 8889064706) 297 mg/dL 70-110 H Lab Interpretation (test code = Abnormal 54126-2) [facility] PointeETHANOL2020-11-09 16:24:00 Test Item Value Reference Range Interpretation Comments ALCOHOL (test code = <10 mg/dL 3092056865) JAMES (test code = Toxic Greater than or JAMES) equal to 80 mg/dL. NOTE: Whole blood values are approximately 10% to 15% lower than serum and plasma. [facility]/CLC ONLY - URINE DRUG (IMMUNOASSAY) - 4 ER [id number] 15:36:00 Test Item Value Reference Range Interpretation Comments AMPHET (test code = Negative Negative 3057193164) Cocaine Metabolite (test Negative Negative code = 1296518376) OPIATES (test code = Presumptive Positive Negative A 3499300083) THC (test code = Negative Negative 0278462940) JAMES (test code = JAMES) Urine Drug Cutoff Ranges Amphetamine: ? 1,000 ng/mLCocaine: ? 150 ng/mLOpiates: ? 300 ng/mLCannabinoids: ?50 ng/mL The results are to be used only for medical (i.e., treatment) purposes. Unconfirmed screening results must not be used for non-medical purposes (e.g., employment testing, legal testing). Lab Interpretation (test Abnormal code = 26829-7) [facility] ONLY - SYPHILIS [id number] 15:04:00 Test Item Value Reference Range Interpretation Comments Syphilis IgG/IgM (test Non-reactive Non-reactive code = 74341-1) JAMES (test code = JAMES) Non-reactive - No serologic evidence of T. pallidum infection. Cannot exclude incubating or early syphilis. Submit a second specimen in 2-4 weeks if syphilis is clinically suspected. Equivocal - Further testing to follow. Reactive - Further testing to follow. Lab Interpretation (test Normal code = 67840-2) [facility] PointeUrinalysis2020-11-09 14:52:00 Test Item Value Reference Range Interpretation Comments APPEARANCE (test code = Clear Clear 2585761790) COLOR (test code = Yellow Yellow 0330610520) PH (test code = 4.8-8.0 5976743217) SP GRAVITY (test code = 1.003-1.030 7064725001) GLU U QUAL (test code = 500 mg/dL Normal A 0942385771) BLOOD (test code = Negative Negative 0969649896) KETONES (test code = 20 mg/dL Negative A 6187578509) PROTEIN (test code = Negative Negative 2887-8) UROBILIN (test code = Normal Normal 4657694088) BILIRUBIN (test code = Negative Negative 4007445658) NITRITE (test code = Negative Negative 1615847627) LEUK RYAN (test code = Negative Negative 7362834512) RBC/HPF (test code = <1 See_Comment [Autom ated message] 5381869256) The system Mimoona generated this result transmit ronan reference range : 0 - 3 HPF. The refe rence range was not u sed to interpret th is result as normal/abnormal . WBC/HPF (test code = See_Comment [Autom ated message] 2777605267) The system M[employer]oon[employer] generated this result transmit ronan reference range : 0 - 5 HPF. The refe rence range was not u sed to interpret th is result as normal/abnormal . BACTERIA (test code = Negative Negative 9641413175) MUCOUS (test code = Slight Negative LPF A 2165087801) Lab Interpretation (test Abnormal code = 02214-0) [facility] PointeACTIVATED PARTIAL THRMPLAS [id number] 13:45:00 Test Item Value Reference Range Interpretation Comments APTT Patient (test code = See_Comment [ Automated message] 3173-2) The system whic h generated this result transmitted ref erence range: 26 - 36 Seconds. The re ference range was not u sed to interpret this result as normal/abnor mal. Lab Interpretation (test Normal code = 99092-1) [facility]intePOCT GLUCOSE (AUTOMATED)2020-08-21 13:45:00 Test Item Value Reference Range Interpretation Comments POCT GLU (test code = 3573013963) 246 mg/dL 70-110 H Lab Interpretation (test code = Abnormal 03435-2) [facility] PointeHIV 1/2 AG-AB WITH [id number] 12:32:00 Test Item Value Reference Range Interpretation Comments HIV Negative Negative Semi-quantitative (test code = 83370-2) JAMES (test code = Non-reactive for HIV-1 JAMES) antigen and HIV-1/HIV-2 antibodies. ?No laboratory evidence of HIV infection. ?Repeat in 2-4 weeks if acute HIV infection is suspected. [facility] PointeCBC WITH [id number] 12:18:00 Test Item Value Reference Range Interpretation Comments WBC (test code = See_Comment [Automated 3390-2) message] The sy stem which generated this result transmitted reference range : 4.20 - 10.70 10*3/?L. The reference range was not used to interpret this result as normal/abnormal . RBC (test code = See_Comment [Automated 499-8) message] The sy stem which generated this [...] RDW-SD (test code = 44.4 fL 38.5-51.6 29027-9) RDW-CV (test code = 14.5 % 12.1-15.4 788-0) PLT (test code = See_Comment H [Automated 777-3) message] The sy stem which generated this result transmitted reference range : 150 - 328 10*3/ ?L. The reference r torito was not used to interpret this result as normal/abnormal . MPV (test code = 8.5 fL 9.8-13 L 83015-2) NRBC/100 WBC (test See_Comment [Automat ed code = 5168480956) message] The system which generated this result transmitted reference range : 0.0 - 10.0 /100 WBCs. The refer ence range was not u sed to interpret th is result as normal/abnormal . NRBC x10^3 (test code <0.01 See_Comment [Auto mated = 6225048686) message] The s ystem which generated this result transmitted reference range : 10*3/?L. The reference range was not used to interpret this result as normal/abnormal . GRAN MAT (NEUT) % 90.4 % (test code = 770-8) IMM GRAN % (test code 1.30 % = 0181407683) LYMPH % (test code = 7.1 % 736-9) MONO % (test code = 0.5 % 5905-5) EOS % (test code = 0.1 % 713-8) BASO % (test code = 0.6 % 706-2) GRAN MAT x10^3(ANC) 7.74 10*3/uL 1.99-6.95 H (test code = 6398447587) IMM GRAN x10^3 (test 0.11 10*3/uL 0-0.06 H code = 9125934895) LYMPH x10^3 (test code 0.61 10*3/uL 1.09-3.23 L = 731-0) MONO x10^3 (test code 0.04 10*3/uL 0.36-1.02 L = 742-7) EOS x10^3 (test code = <0.03 0.06-0.53 L 711-2) BASO x10^3 (test code 0.05 10*3/uL 0.01-0.09 = 704-7) POLYCHROMASIA (test 2+ See_Comment [Automa ronan code = 53526-3) message] The system which generated this result transmitted reference range : 2+. The referen ce range was not u sed to interpret th is result as normal/abnormal . BANDS (test code = Increased A 9624377228) Lab Interpretation Abnormal (test code = 98235-5) [facility] 11:48:00 Test Item Value Reference Range Interpretation Comments Procalcitonin (test 0.36 ng/mL <0.07 H code = 2023039473) JAMES (test code = JAMES) INTERPRETATION OF [...] lung abscess/empyema. For further information please refer to:[email or web address] Lab Interpretation Abnormal (test code = 70503-3) [facility]inteLAGAATE [id number] 10:53:00 Test Item Value Reference Range Interpretation Comments LDH (test code = 9180974885) 351 U/L 300-600 Lab Interpretation (test code = Normal 34994-1) [facility] PointeSEDIMENTATION [id number] 10:07:00 Test Item Value Reference Range Interpretation Comments ESR (test code = See_Comment H [Automated message] 0601285909) The system [employer] generated this result transmitted ref erence range: 0 - 10 m m/HR. The reference r torito was not used to interpret this result as normal/abnor mal. Lab Interpretation (test Abnormal code = 53258-9) [facility] GLUCOSE (AUTOMATED)2020-08-21 09:45:00 Test Item Value Reference Range Interpretation Comments POCT GLU (test code = 9057926797) 287 mg/dL 70-110 H Lab Interpretation (test code = Abnormal 94748-6) [facility]Glycosylated Hemoglobin (A1C)2020-08-21 09:29:00 Test Item Value Reference Range Interpretation Comments HGB A1C (test code = 4548-4) 9.8 % 4-6 H Lab Interpretation (test code = Abnormal 85091-3) [facility]OVID-19 (ID NOW RAPID TESTING)2020-08-21 09:13:00 Test Item Value Reference Range Interpretation Comments SARS-CoV-2 Rapid ID NOW Not Detected Not Detected (test code = 16366-7) JAMES (test code = JAMES) ID NOW COVID-19 Assay is an isothermal nucleic acid amplification test intended for the qualitative detection of nucleic acid from SARS-CoV-2 viral RNA in nasopharyngeal (LEGAL [employer]ESSOR) specimens. It is used under Emergency Use [...] indicated. Lab Interpretation Normal (test code = 08939-4) [facility]inteProthrombin Time / [id number] 08:59:00 Test Item Value Reference Range Interpretation Comments PROTIME PATIENT (test See_Comment H [Auto mated message] code = 5964-2) The system [employer] generated this result transmitted ref erence range: 10.1 - 1 2.6 Seconds. The reference range was not used to int erpret this result as normal/abnormal . INR (test code = 6301-6) Nor mal INR <1.1; Warfarin Therap eutic range 2.0 to 3. 0 or 2.5 to 3.5, dep ending upon the indica tions. Lab Interpretation (test Abnormal code = 94863-8) [facility]inteaPTT2020-11-09 08:59:00 Test Item Value Reference Range Interpretation Comments APTT Patient (test code = See_Comment [ Automated message] 3173-2) The system [employer] generated this result transmitted ref erence range: 26 - 36 Seconds. The re ference range was not u sed to interpret this result as normal/abnor mal. Lab Interpretation (test Normal code = 98342-8) [facility] (NA, K, CL, CO2, GLUCOSE, BUN, CREATININE, CA)2020-08-21 08:52:00 Test Item Value Reference Range Interpretation Comments NA (test code = 136 mmol/L 135-145 4547212808) K (test code = 4.3 mmol/L 3.5-5 7514640159) CL (test code = 104 mmol/L 98-108 0286411688) CO2 TOTAL (test code = 24 mmol/L 23-31 0727299282) AGAP (test code = 2-16 5684041130) BUN (test code = 8 mg/dL 7-23 9970296664) GLUCOSE (test code = 308 mg/dL 70-110 H 7373147350) CREATININE (test code = 0.72 mg/dL 0.6-1.25 5157297608) CALCIUM (test code = 7.8 mg/dL 8.6-10.6 L 4560953010) eGFR Calculation mL/min/1.73m2 (Non-) (test code = 1877008532) eGFR Calculation mL/min/1.73m2 () (test code = 3906053799) JAMES (test code = JAMES) Association of [...] tests). Lab Interpretation Abnormal (test code = 11196-4) [facility]inteHEPATIC FUNCTION PANEL (91587) (ALB,T.PRO,BILI T,BU/BC,ALT,AST,ALK PHOS)2020-08-21 08:52:00 Test Item Value Reference Range Interpretation Comments TOTAL BILI (test code = 8228085351) 0.8 mg/dL 0.1-1.1 BILI UNCON (test code = 4495218234) 0.3 mg/dL 0.1-1.1 BILI CONJ (test code = 8559421940) 0.0 mg/dL 0-0.3 T PROTEIN (test code = 3301721110) 5.7 g/dL 6.3-8.2 L ALBUMIN (test code = 3597688575) 2.7 g/dL 3.5-5 L ALK PHOS (test code = 4968335365) 245 U/L 34-122 H ALTv (test code = 1742-6) 37 U/L 5-50 AST(SGOT) (test code = 4383093486) 43 U/L 13-40 H Lab Interpretation (test code = Abnormal 89776-6) [facility]
--- NOTE | 2023-04-26 03:41 | ER ---
Nurse's Notes [facility] Name: Kiel Ngo Age: 72 yrs Sex: Male : 1950 Arrival Date: 04/26/2023 Time: 03:21 Bed 6 Private MD: Diagnosis: Chronic hip pain;Chronic back pain Presentation: 04/26 03:25 Chief complaint: EMS states: Pt reports that he is out of his pain medications and his jb4 appointment to get more dilaudid is on Friday. Currently reporting right leg and hip pain. Coronavirus screen: At this time, the client does not indicate any symptoms associated with coronavirus-19. Ebola Screen: No symptoms or risks identified at this time. Initial Sepsis Screen: Does the patient meet any 2 criteria? No. Patient's initial sepsis screen is negative. Does the patient have a suspected source of infection? No. Patient's initial sepsis screen is negative. Risk Assessment: Do you want to hurt yourself or someone else? Patient reports no desire to harm self or others. Onset of symptoms was April 26, 2023. Transition of care: patient was not received from another setting of care. 03:25 Method Of Arrival: EMS: [facility] jb4 03:25 Acuity: JOZEF 5 jb4 Historical: - Allergies: 03:27 Demerol; jb4 03:27 metformin; jb4 03:27 Morphine; jb4 - Home Meds: 03:27 hydromorphone 4 mg Oral tab 1 tab three times a day [Active]; Hydroxyzine Oral jb4 [Active]; Klonopin 2 mg Oral TbDi 2 tabs 4 times a day [Active]; Alprazolam Oral [Active]; Benadryl Oral [Active]; Effexor Oral [Active]; Ambien Oral [Active]; humulin [Active]; Keppra Oral [Active]; Metoprolol Tartrate Oral [Active]; tizanidine oral [Active]; venlafaxine oral [Active]; - PMHx: 03:27 chronic back pain; Atrial fibrillation; Chronic right leg pain; neuropathy; jb4 - PSHx: 03:27 back sx; PANCREAS SX; R. Ankle SX; jb4 Screenin:31 [facility] ED Fall Risk Assessment (Adult) History of falling in the last 3 months, jb4 including since admission No falls in past 3 months (0 pts) Confusion or Disorientation No (0 pts) Score/Fall Risk Level 0 - 2 = Low Risk Oriented to surroundings, Maintained a safe environment. Abuse screen: Denies threats or abuse. Nutritional screening: No deficits noted. Tuberculosis screening: No symptoms or risk factors identified. Assessment: 03:31 General: Appears in no apparent distress. comfortable. Pain: Complains of pain in right jb4 leg Pain does not radiate. Pain currently is 8 out of 10 on a pain scale. Neuro: Level of Consciousness is awake, alert, obeys commands, Oriented to person, place, time, situation. Cardiovascular: Patient's skin is warm and dry. Respiratory: Airway is patent Respiratory effort is even, unlabored, Respiratory pattern is regular, symmetrical. GI: No signs and/or symptoms were reported involving the gastrointestinal system. : No signs and/or symptoms were reported regarding the genitourinary system. EENT: No signs and/or symptoms were reported regarding the EENT system. Derm: Skin is intact, Skin is pink, warm \T\ dry. Musculoskeletal: Circulation, motion, and sensation intact. Vital Signs: 03:25 BP 110 / 62; Pulse 59; Resp 16; Temp 98.7(O); Pulse Ox 100% on R/A; Weight 81.65 kg (R);jb4 ED Course: 03:24 Patient arrived in ED. wm 03:25 Carie Quintanilla MD is Attending Physician. sd2 03:25 Ankit Hall, DIEGO is Primary Nurse. jb4 03:27 Triage completed. jb4 03:27 Arm band placed on right wrist. jb4 03:31 Patient has correct armband on for positive identification. Bed in low position. Call jb4 light in reach. Side rails up X 1. 03:31 No provider procedures requiring assistance completed. jb4 03:40 Patient did not have IV access during this emergency room visit. jb4 Administered Medications: 03:38 Drug: Ketamine IM 20 mg Route: IM; Site: right deltoid; jb4 03:49 Follow up: Response: Medication administered at discharge. jb4 Medication: 03:31 VIS not applicable for this client. jb4 Outcome: 03:40 Discharge ordered by . sd2 03:40 Discharged to home ambulatory. jb4 03:40 Condition: stable 03:40 Discharge instructions given to patient, Instructed on discharge instructions, follow up and referral plans. Demonstrated understanding of instructions, follow-up care. 03:48 Patient left the ED. jb4 Signatures: Ankit Hall, RN RN jb4 Myranda Robles Stephanie, MD MD sd2 Corrections: (The following items were deleted from the chart) 03:31 03:27 Home Meds: Benadryl Oral; jb4 jb4
--- NOTE | 2023-04-26 03:41 | EDPHYS ---
Physician Documentation [facility] Name: Kiel Ngo Age: 72 yrs Sex: Male : 1950 Arrival Date: 04/26/2023 Time: 03:21 Bed 6 Private MD: ED Physician Carie Quintanilla HPI: 04/26 03:34 This 72 yrs old Male presents to ER via EMS with complaints of acute on chronic hip and sd2 back pain. 03:34 72 yo M presents via EMS with CC of acute on chronic hip and back pain. Pt is well sd2 known to our facility and has multiple visits for the same symptoms. These symptoms are unchanged but his pain is increased today as he has ran out of his home pain medication, Tylenol #4 because he has been taking it more regularly than he should. Pt also took a muscle relaxer about 1 hour [employer]. Areas of pain and type of pain otherwise unchanged. No new trauma or recent falls/injuries. . Historical: - Allergies: 03:27 Demerol; jb4 03:27 metformin; jb4 03:27 Morphine; jb4 - Home Meds: 03:27 hydromorphone 4 mg Oral tab 1 tab three times a day [Active]; Hydroxyzine Oral jb4 [Active]; Klonopin 2 mg Oral TbDi 2 tabs 4 times a day [Active]; Alprazolam Oral [Active]; Benadryl Oral [Active]; Effexor Oral [Active]; Ambien Oral [Active]; humulin [Active]; Keppra Oral [Active]; Metoprolol Tartrate Oral [Active]; tizanidine oral [Active]; venlafaxine oral [Active]; - PMHx: 03:27 chronic back pain; Atrial fibrillation; Chronic right leg pain; neuropathy; jb4 - PSHx: 03:27 back sx; PANCREAS SX; R. Ankle SX; jb4 ROS: 03:34 Constitutional: Negative for fever, chills, and weight loss, Eyes: Negative for injury, sd2 pain, redness, and discharge, Cardiovascular: Negative for chest pain, palpitations, and edema, Respiratory: Negative for shortness of breath, cough, wheezing. Abdomen/GI: Negative for abdominal pain, nausea, vomiting, diarrhea. Back: Negative for injury and positive for chronic pain, MS/Extremity: Negative for injury and deformity, Positive for chronic pain Skin: Negative for injury, rash, and discoloration. Exam: 03:34 Constitutional: This is a well developed, well nourished patient who is awake, alert, sd2 and in no acute distress. Head/Face: Normocephalic, atraumatic. Cardiovascular: Regular rate and rhythm with a normal S1 and S2. 2+ distal pulses. Respiratory: No respiratory distress, stridor or increased WOB. Abdomen/GI: Soft, non-tender, with normal bowel sounds. No guarding or rebound. No evidence of tenderness throughout. Back: No spinal tenderness. No costovertebral tenderness. Full range of motion. Skin: Warm, dry with normal turgor. Normal color with no rashes, no lesions, and no evidence of cellulitis. MS/ Extremity: Chronic decreased tone to BLEs, unchanged Psych: Awake, alert, with orientation to person, place and time. Behavior, mood, and affect are within normal limits. Vital Signs: 03:25 BP 110 / 62; Pulse 59; Resp 16; Temp 98.7(O); Pulse Ox 100% on R/A; Weight 81.65 kg (R);jb4 MDM: 03:25 Patient medically screened. sd2 03:34 Differential Diagnosis chronic pain, medication misuse, fracture, spasm among others. sd2 Data reviewed: vital signs, nurses notes, old medical records, Multiple previous ER visits for same symptoms. I considered the following discharge prescriptions or medication management in the emergency department Medications were administered in the Emergency Department. See MAR. Historians other than the Patient: EMS: Provides initial report. Care significantly affected by the following chronic conditions: A-fib, chronic pain in pain management. Counseling: I had a detailed discussion with the patient and/or guardian regarding: the historical points, exam findings, and any diagnostic results supporting the discharge/admit diagnosis, the need for outpatient follow up, to return to the emergency department if symptoms worsen or persist or if there are any questions or concerns that arise at home. ED course: Pt's clinical exam is unchanged from when I have seen him previously. His pain is also unchanged and chronic. Due to misuse of his medications, narcotics were not given in the ER today. The patient was offered other non-narcotic options and chose to receive Ketamine which he has received previously. He has a scheduled appointment with Pain Management this Friday and will follow up for further refills of his medication at that time. He verbalizes understanding of discharge plan and strict return precautions. . Administered Medications: 03:38 Drug: Ketamine IM 20 mg Route: IM; Site: right deltoid; jb4 03:49 Follow up: Response: Medication administered at discharge. jb4 Disposition Summary: 04/26/23 03:40 Discharge Ordered Location: Home sd2 Problem: an acute exacerbation sd2 Symptoms: have improved sd2 Condition: Stable sd2 Diagnosis - Chronic hip pain sd2 - Chronic back pain sd2 Followup: sd2 - With: Private Physician - When: 2 - 3 days - Reason: Recheck today's complaints, Continuance of care, Re-evaluation by your physician Discharge Instructions: - Discharge Summary Sheet sd2 - Chronic Pain, Adult sd2 Forms: - Medication Reconciliation Form sd2 - Thank You Letter sd2 - Antibiotic Education sd2 - Prescription Opioid Use sd2 - Patient Portal Instructions sd2 Signatures: Ankit Hall RN RN jb4 Carie Quintanilla MD MD sd2 Corrections: (The following items were deleted from the chart) 03:31 03:27 Home Meds: Benadryl Oral; jb4 jb4
[2023-04-26] MEDS ORDERED: KETAMINE HCL IN 0.9 % NACL 50 MG/5 ML SYRINGE IV ONE (03:44)
[2023-04-26 05:56] VITALS: BP 110/62; TEMP 98.7; O2SAT 100
== END 2023-04-26 03:48 | disposition home or self-care (01) ==
LOC: ER 03:21
DX: G89.29 Other chronic pain (principal); M54.9 Dorsalgia, unspecified; Z88.5 Allergy status to narcotic agent; Z88.8 Allergy status to other drugs, medicaments and biological substances
CPT/HCPCS: 96372; 99284

== ENCOUNTER 2023-04-26 18:38 | Emergency (ER) | payer OTHER ==
--- OUTSIDE RECORDS SUMMARY | 2023-04-26 18:46 | XMS REPORT | Continuity of Care Document ---
:1950 Author Organization [facility] t Address [address] [place] [address] Care Team Providers Name Role Phone CALVIN WORLEY Primary Care Physician Unavailable [id number] Attending Clinician Unavailable KELLY WASHINGTON Attending Clinician Unavailable Zion Mathew Anavella Attending Clinician Unava ilable SWEETIE STOUT Attending Clinician Unavailable Girish VILLAREAL, Sweetie Attending Clinician Calvin Worley MD Attending Clinician Ruchi Peters RN Attending Clinician Paco Lacey DO Attending Clinician Hunter VILLAREAL, Vika Fernando Attending Clinician Alvarez Rowe MD Attending Clinician ALVAREZ ROWE Attending Clinician Unavailable PACO LACEY Attending Clinician Unavailable Doctor Unassigned, [place] Attending Clinician Unavailable Wilder VILLAREAL, Angi K.H. Attending Clinician Jl Mccabe MD Attending Clinician Kelly Washington MD Attending Clinician [phone] Lisandra Gallardo MD, Mukul Anand Attending Clinician [id number] Admitting Clinician Unavailable MUKUL GALLARDO Admitting Clinician Unavailable Angle aMthew, Anav Admitting Clinician Unavailable Hunter VILLAREAL, Vika Fernando Admitting Clinician VIKA HARRISON Admitting Clinician Unavailable Nicci VILLAREAL, Mukul Anand Admitting Clinician Payers Payer Name Policy Type Policy Number Effective Date Expiration Date Tony doe MEDICARE PART A [id number] 2007 \\T\\ B 00:00:00 [employer] INDEMNITY [id number] 2016 00:00:00 MCR MCR [id number] Problems Condition Condition Condition Status Onset Resolution [...] ents Source Name Type Date Date Clinician Caldwell Propensi Active Rash 2019- Univers ty to [...] University o f Transport Non-Med 00:00:00 00:00:00 [facility] edical Branch Education 2020-11-16 2020-11-16 21 [place] of 00:00:00 00:00:00 [facility] Branch Alcohol intake 2020-11-16 2020-11-16 Ex-drinker [place] of 00:00:00 00:00:00 (finding) [facility] [place] [facility] Tobacco use and 2020-08-21 2020-08-21 Former user Universi ty of exposure 00:00:00 00:00:00 [facility] [place] [facility] Tobacco Comment 2020-08-21 2020-08-21 quit 10 years Univer sity of 00:00:00 00:00:00 ago, started in [place] Med ical 2nd year of Branch college (~40 years) Alcohol Comment 2020-08-21 2020-08-21 Used to have 2-3 Uni versity of 00:00:00 00:00:00 six-packs of [place] Medica l beer daily x 20 Branch years, quit 2004 History [facility] 2020-08-21 2020-08-21 99 University o f Alcohol Frequency 00:00:00 00:00:00 [place] M edical Branch History [facility] 2020-08-21 2020-08-21 99 University o f Alcohol Std 00:00:00 00:00:00 [place] Medical Drinks Branch History [facility] 2020-08-21 2020-08-21 99 University o f Alcohol Binge 00:00:00 00:00:00 [facility] [place] Sex Ass[birth year] Universit y of 00:00:00 00:00:00 [facility] [place] [facility] Smoking Status Start Date Stop Date [...] 0845, Until Discontinu ed, Routine amLODIPine Yes [id number] 10mg Take 1 Univers 10 mg 3-07 tablet by ity of tablet 00:00: mouth [place] 00 daily. Medical Branch clotrimazol Yes [id number] Apply to Univers e 1 % 3-07 face/ears, ity of topical 00:00: armpits, [place] cream 00 pannus and Medical back/any Branch other rash twice a day fluocinonid 0 Yes [id number] Apply to Univers e 0.05 % 3-07 scalp ity of solution 00:00: twice a 00 day Medical Branch triamcinolo 0 Yes [id number] Apply to Univers ne 3-07 back, ity of acetonide 00:00: armpits [place] 0.1 % cream 00 and other Med ical affected Branch areas twice daily, please mix with clotrimazo le hydrOXYzine Yes [id number] 10mg Take 1 Univers 10 mg 3-07 tablet by ity of tablet 00:00: mouth 2 (two) Medical times Branch daily. amLODIPine Yes [id number] 10mg Take 1 Univers 10 mg 3-07 tablet by ity of tablet 00:00: mouth [place] 00 daily. Medical Branch clotrimazol Yes [id number] Apply to Univers e 1 % 3-07 face/ears, ity of topical 00:00: armpits, [place] cream 00 pannus and Medical back/any Branch other rash twice a day fluocinonid 0 Yes [id number] Apply to Univers e 0.05 % 3-07 scalp ity of solution 00:00: twice a day Medical Branch triamcinolo Yes [id number] Apply to Univers ne 3-07 back, ity of acetonide 00:00: armpits [place] 0.1 % cream 00 and other Med ical affected Branch areas twice daily, please mix with clotrimazo le hydrOXYzine Yes [id number] 10mg Take 1 Univers 10 mg 3-07 tablet by ity of tablet 00:00: mouth 2 00 (two) Medical times Branch daily. amLODIPine 2020-0 Yes [id number] 10mg Take 1 Univers 10 mg 3-07 tablet by ity of tablet 00:00: mouth [place] 00 daily. Medical Branch clotrimazol 2020-0 Yes [id number] Apply to Univers e 1 % 3-07 face/ears, ity of topical 00:00: armpits, [place] cream 00 pannus and Medical back/any Branch other rash twice a day fluocinonid 2020-0 Yes [id number] Apply to Univers e 0.05 % 3-07 scalp ity of solution 00:00: twice a day Medical Branch triamcinolo 2020-0 Yes [id number] Apply to Univers ne 3-07 back, ity of acetonide 00:00: armpits [place] 0.1 % cream 00 and other Med ical affected Branch areas twice daily, please mix with clotrimazo le hydrOXYzine Yes [id number] 10mg Take 1 Univers 10 mg 3-07 tablet by ity of tablet 00:00: mouth 2 [place] 00 (two) Medical times Branch daily. amLODIPine Yes [id number] 10mg Take 1 Univers 10 mg 3-07 tablet by ity of tablet 00:00: mouth [place] 00 daily. Medical Branch clotrimazol Yes [id number] Apply to Univers e 1 % 3-07 face/ears, ity of topical 00:00: armpits, [place] cream 00 pannus and Medical back/any Branch other rash twice a day fluocinonid 2020- Yes [id number] Apply to Univers e 0.05 % 3-07 scalp ity of solution 00:00: twice a Medical Branch triamcinolo 0 Yes [id number] Apply to Univers ne 3-07 back, ity of acetonide 00:00: armpits [place] 0.1 % cream 00 and other Med ical affected Branch areas twice daily, please mix with clotrimazo le hydrOXYzine Yes [id number] 10mg Take 1 Univers 10 mg -07 tablet by ity of tablet 00:00: mouth 2 [place] (two) Medical times Branch daily. cephALEXin 2020-2020- No [id number] 500mg Take 1 Univers 500 mg -04 14- capsule by ity of capsule 00:00: 05:59 mouth [place] 00 :00 every 6 Medical (six) Branch hours for 3 days. cephALEXin 2020-0 2020- No [id number] 500mg Take 1 Univers 500 mg 3-04 14- capsule by ity of capsule 00:00: 05:59 mouth [place] 00 :00 every 6 Medical (six) Branch hours for 3 days. hydrOXYzine 2020-0 2020- No [id number] 10mg Take 1 Univers 10 mg 3-04 14-07 tablet by ity of tablet 00:00: 00:00 mouth 2 [place] 00 :00 (two) Medical times [place] daily. morpHINE Yes 4mg 4 mg, Slow [...] ONCE, 1 [place] 00 :00 dose, Sat [facility] 12/16/20 at Branch 0515, Routine lactated 2020- No 1000mL at 125 Univ ers ringers IV 12-16 03-06 mL/hr, ity of infusion 01:00: 00:16 1,000 mL, [place] as 1,000 mL 00 :00 IV Medical Infusion, [place] ONCE, 1 dose, 12/15/20 at 1900, Routine iohexol 2020- No 100mL 100 mL, Unive rs (OMNIPAQUE 12-15-05 Intravenou it y of 350 22:24: 22:24 s, ONCE, 1 [place] BULK-100 00 :00 dose, Fri Medica l mL) 12/15/20 at [place] injection 1645, 100 mL Routine cephALEXin 2020- [...] 0.9% 2020- No 500mL at 999 [facility] ers (NS) bolus 12-15-05 mL/hr, 500 it y of infusion 16:00: 15:26 mL, IV [place] 500 mL 00 :00 Piggyback, Medical ONCE, 1 Branch dose, Fri12/15/20 at 1000, STAT HYDROmorpho Yes 4mg 4 mg, [facility] ne 05 Oral, BID, ity of (DILAUDID) 15:30: First dose [place] tablet 4 mg 00 (after Medica l last Branch modificati on) on Fri12/15/20 at 0930, Until Discontinu ed, Routine amLODIPine 2020- No [id number] 10mg Take 1 Univers 10 mg 12-15-07 tablet by ity of tablet 00:00: 00:00 mouth [place] 00 :00 daily. Medical Branch HYDROmorpho 2020- No 1mg 1 mg, [facility] ers ne 12-14 03-05 Oral, ity of (DILAUDID) 17:35: 15:18 Q6HPRN, [place] tablet 1 mg 30 :06 Starting Medi [facility] 12/14/20 Branch at 1135, Until Fri12/15/20 at 0918, Routine, Pain (scale 7-10) hydrOXYzine Yes 10mg 10 mg, [facility] ers (ATARAX) 3-04 Oral, BID, ity o f tablet 10 17:30: First dose [place] mg 00 on [facility] 12/14/20 at Branch 1130, Until Discontinu ed, Routine lisinopriL Yes 5mg 5 mg, Univer s (PRINIVIL,Z 3-04 Oral, ity of ESTRIL) 17:30: DAILY, [place] tablet 5 mg 00 First dose Me dical on [facility] 3/4/21 at 1130, Until Discontinu ed, Routine triamcinolo 2020- No [id number] Apply to Univers ne 12-14 back, ity of acetonide 00:00: 00:00 armpits [place] 0.1 % cream 00 :00 and other Med ical affected Branch areas twice daily, please mix with clotrimazo le clotrimazol 2020- No [id number] Apply to Univers e 1 % 12-14 face/ears, ity of topical 00:00: 00:00 armpits, [place] cream 00 :00 pannus and Medical back/any Branch other rash twice a day fluocinonid 2020- No [id number] Apply to Univers e 0.05 % 12-14 scalp ity of solution 00:00: 00:00 twice a [place] 00 :00 day Medical Branch hydrOXYzine 2020- No [id number] 10mg Take 1 Univers 10 mg 12-14 [...] 1 [place] injection 4 00 :00 dose, [facility] ical mg 12/12/20 at Branch 2300, Routine traMADoL 2020- No 50mg 50 mg, Univer s (ULTRAM) 12-13 03-03 Oral, ity of tablet 50 03:45: 03:34 ONCE, 1 [place] mg 00 :00 dose, [facility] 12/12/20 at Branch 2145, Routine insulin Yes 15U 15 Units, [facility] rs glargine 12-12 Subcutaneo ity o f (LANTUS 15:00: us, DAILY, [place] U-100) 00 First dose Medical injection on [facility] 15 Units 12/12/20 at 0900, Until Discontinu ed hydrOXYzine 2020- No 10mg 10 mg, Uni vers (ATARAX) 12-12 03-02 Oral, ity of tablet 10 08:15: 07:33 ONCE, 1 [place] mg 00 :00 dose, [facility] 12/12/20 at Branch 0215, Routine mirtazapine Yes 7.5mg 7.5 mg, Un toi (REMERON) 3-02 Oral, QHS, ity of tablet 7.5 03:00: First dose [place] mg 00 [facility] 12/11/20 at Branch 2100, Until Discontinu ed, [...] days Sliding Yes Subcutaneo [facility] ers Scale 12-11 us, TID ity of Insulin - 18:00: MEALS+HS, [place] as Lispro 00 First dose Medical (HumaLOG) + on Fri Branch Fsbg 12/11/20 at Testing 1200, Until Discontinu ed, Routine insulin Yes 5U 5 Units, [facility] lispro 12-11 Subcutaneo ity of (human) 18:00: us, TID [place] (HumaLOG 00 MEALS, Medical U-100) First dose Branch injection 5 on Mon Units 12/11/20 at 1200, Until Discontinu ed Polyethylen Yes 17g 17 g, [facility] rs e Glycol 12-11 Oral, ity of 3350 17:47: [id number], [place] (MIRALAX) 05 Starting Medica l powder [...] 0630, STAT piperacilli No 3.375g 3.375 g, [facility] n-tazobacta 12-11 IV ity of m (ZOSYN) 12:00: 17:48 Piggyback, [place] injection 00 :24 Q6H, First Medi jose c 3.375 g dose on Branch Fri12/11/20 at 0600, Until Discontinu ed, KAHLIL
Re ason for Anti-Infec tive: Empiric Therapy for Suspected Infection< br>Empiric Therapy Site: Skin / Soft tissue
Duration of therapy: 72 hours sennosides- Yes [id number] 1{tbl} Take 1 [facility] docusate 2-09 tablet by ity of sodium 00:00: mouth 2 [place] 8.6-50 mg 00 (two) Medical per tablet times Branch daily. hydrocortis Yes [id number] Apply to [facility] one 2.5 % 11-21 affected ity of cream 00:00: area(s) 2 [place] 00 (two) Medical times Branch daily. blood sugar Yes [id number] Use to [facility] diagnostic 2- check ity of (FREESTYLE 00:00: blood [place] LITE 00 glucose Medical STRIPS) 4-5 times Branch strip daily. Polyethylen 2020- Yes [id number] 17g Take 1 Univers e Glycol 2-09 Packet by ity of 3350 17 00:00: mouth [place] gram powder 00 every 24 Medi jose c (twenty-fo Branch ur) hours as needed for Constipati on. sennosides- Yes [id number] 1{tbl} Take 1 Univers docusate 2-09 tablet by ity of sodium 00:00: mouth 2 [place] 8.6-50 mg 00 (two) Medical per tablet times Branch daily. hydrocortis 2020- Yes [id number] Apply to Univers one 2.5 % 2-09 affected ity of cream 00:00: area(s) 2 [place] 00 (two) Medical times Branch daily. blood sugar Yes [id number] Use to Univers diagnostic 2-09 check ity of (FREESTYLE 00:00: blood [place] LITE 00 glucose Medical STRIPS) 4-5 times Branch strip daily. Polyethylen Yes [id number] 17g Take 1 Univers e Glycol 2-09 Packet by ity of 3350 17 00:00: mouth [place] gram powder 00 every 24 Medi jose c (twenty-fo Branch ur) hours as needed for Constipati on. sennosides- Yes [id number] 1{tbl} Take 1 Univers docusate 2-09 tablet by ity of sodium 00:00: mouth 2 [place] 8.6-50 mg 00 (two) Medical per tablet times Branch daily. hydrocortis 2020- Yes [id number] Apply to Univers one 2.5 % 2-09 affected ity of cream 00:00: area(s) 2 [place] 00 (two) Medical times Branch daily. blood sugar 2020-0 Yes [id number] Use to Univers diagnostic 209 check ity of (FREESTYLE 00:00: blood [place] LITE 00 glucose Medical STRIPS) 4-5 times Branch strip daily. Polyethylen 2020-0 Yes [id number] 17g Take 1 Univers e Glycol 2-09 Packet by ity of 3350 17 00:00: mouth [place] gram powder 00 every 24 Medi jose c (twenty-fo Branch ur) hours as needed for Constipati on. sennosides- 2020- Yes [id number] 1{tbl} Take 1 Univers docusate 2-09 tablet by ity of sodium 00:00: mouth 2 [place] 8.6-50 mg 00 (two) Medical per tablet times Branch daily. hydrocortis Yes [id number] Apply to [facility] one 2.5 % 11-21 affected ity of cream 00:00: area(s) 2 [place] 00 (two) Medical times Branch daily. blood sugar Yes [id number] Use to [facility] diagnostic 11-21 check ity of (FREESTYLE 00:00: blood [place] LITE 00 glucose Medical STRIPS) 4-5 times Branch strip daily. Polyethylen Yes [id number] 17g Take 1 Univers e Glycol 11-21 Packet by ity of 3350 17 00:00: mouth [place] gram powder 00 every 24 Medi jose c (twenty-fo Branch ur) hours as needed for Constipati on. Insulin 2020- No [id number] 15U inject 15 Univers Glargine 11-21 Units ity of (LANTUS 00:00: 05:59 under the [employer] SOLOSTAR 00 :00 skin every Medic al U-100 morning Branch INSULIN) for 30 100 unit/mL days. (3 mL) injection venlafaxine 2020- No [id number] 150mg Take 1 Univers XR 150 mg 11-21 capsule by ity of 24 hr 00:00: 05:59 mouth 3 [place] capsule 00 :00 (three) Medical times Branch daily for 30 days. Insulin 2020- No [id number] 15U inject 15 Univers Glargine 11-21-12 Units ity of (LANTUS 00:00: 05:59 under the [employer] SOLOSTAR 00 :00 skin every Medic al U-100 morning Branch INSULIN) for 30 100 unit/mL days. (3 mL) injection venlafaxine 2020- No [id number] 150mg Take 1 Univers XR 150 mg 11-21 capsule by ity of 24 hr 00:00: 05:59 mouth 3 [place] capsule 00 :00 (three) Medical times Branch daily for 30 days. triamcinolo 2020- No [id number] Apply to [facility] ne 11-21-04 area(s) 2 ity of acetonide 00:00: 00:00 (two) [place] 0.1 % cream 00 :00 times Medical daily. Branch cephALEXin 2020- No [id number] 1000mg Take 2 Univers 500 mg 11-21 capsules ity of capsule 00:00: 00:00 by mouth 3 [place] 00 :00 (three) Medical times Branch daily. doxycycline 2020- No [id number] 100mg Take 1 Univers hyclate 100 11-21 capsule by i ty of mg capsule 00:00: 00:00 mouth [place] 00 :00 every 12 Medical (twelve) Branch hours. lactobacill 2020- No [id number] 1{tbl} Take 1 Univers us 11-21 tablet by ity of acidophilus 00:00: 00:00 mouth 2 [place] 25 million 00 :00 (two) Medical cell -100 times Branch mg captab daily. bisacodyL 2020- No [id number] 10mg Insert 1 Univers 10 mg 11-21 Suppositor ity of suppository 00:00: 00:00 y into [place] 00 :00 rectum at Medical bedtime as Branch needed for Constipati on. ALPRAZolam 2020- No [id number] .25mg Take 1 Univers (XANAX) 11-21 tablet by ity of 0.25 mg 00:00: 00:00 mouth 2 [place] tablet 00 :00 (two) Medical times Branch daily. hydrOXYzine 2020- No [id number] 20mg Take 2 Univers 10 mg 11-21 [...] 01:13: under the [facility] FLEXPEN SC) 36 skin. Medical Branch [...] 01:13: under the [facility] FLEXPEN SC) 36 skin. Medical Branch [...] Units ity of (NOVOLOG 01:13: under the [facility] s FLEXPEN SC) 36 skin. Medical Branch ALPRAZolam 2019-10 Yes .25mg Take 0.25 U nivers (XANAX) 1-12 mg by ity of 0.25 mg 01:13: mouth 2 [place] tablet 36 (two) Medical times Branch daily. HYDROXYZINE 2019-10 2020- No 25mg Take 25 mg Univers PAMOATE 1-11 11-11 by mouth ity of ORAL 20:04: 00:00 daily. [place] 34 :00 Medical Branch hydrocortis 2019-10 Yes [id number] Apply to Univers one 2.5 % 1-11 affected ity of cream 00:00: area(s) 2 [place] 00 (two) Medical times Branch daily. hydrOXYzine 2019-10 Yes [id number] 20mg Take 2 Univers 10 mg 1-11 tablets by ity of tablet 00:00: mouth [place] 00 every 8 Medical (eight) Branch hours as needed for Itching or Anxiety. Polyethylen 2019-10 Yes [id number] 17g Take 1 Univers e Glycol 1-11 Packet by ity of 3350 17 00:00: mouth [place] gram powder 00 every 24 Medi jose c (twenty-fo Branch ur) hours as needed for Constipati on. hydrocortis 2019-10 Yes [id number] Apply to Univers one 2.5 % 1-11 affected ity of cream 00:00: area(s) 2 [place] 00 (two) Medical times Branch daily. hydrOXYzine 2019- Yes [id number] 20mg Take 2 Univers 10 mg 1-11 tablets by ity of tablet 00:00: mouth [place] 00 every 8 Medical (eight) Branch hours as needed for Itching or Anxiety. Polyethylen 2019- Yes [id number] 17g Take 1 Univers e Glycol 1-11 Packet by ity of 3350 17 00:00: mouth [place] gram powder 00 every 24 Medi jose c (twenty-fo Branch ur) hours as needed for Constipati on. hydrocortis 2019- Yes [id number] Apply to Univers one 2.5 % 1-11 affected ity of cream 00:00: area(s) 2 [place] (two) Medical times Branch daily. hydrOXYzine 2019- Yes [id number] 20mg Take 2 Univers 10 mg 1-11 tablets by ity of tablet 00:00: mouth [place] 00 every 8 Medical (eight) Branch hours as needed for Itching or Anxiety. Polyethylen 2019- Yes [id number] 17g Take 1 Univers e Glycol 1-11 Packet by ity of 3350 17 00:00: mouth [place] gram powder 00 every 24 Medi jose c (twenty-fo Branch ur) hours as needed for Constipati on. hydrocortis 2019-10 Yes [id number] Apply to Univers one 2.5 % 1-11 affected ity of cream 00:00: area(s) 2 [place] (two) Medical times Branch daily. hydrOXYzine 2019- Yes [id number] 20mg Take 2 Univers 10 mg 1-11 tablets by ity of tablet 00:00: mouth [place] 00 every 8 Medical (eight) Branch hours as needed for Itching or Anxiety. Polyethylen 2019- Yes [id number] 17g Take 1 Univers e Glycol 1-11 Packet by ity of 3350 17 00:00: mouth [place] gram powder 00 every 24 Medi jose c (twenty-fo Branch ur) hours as needed for Constipati on. hydrocortis 2019-10 Yes [id number] Apply to Univers one 2.5 % 1-11 affected ity of cream 00:00: area(s) 2 [place] 00 (two) Medical times Branch daily. hydrOXYzine 2019-10 Yes [id number] 20mg Take 2 Univers 10 mg 1-11 tablets by ity of tablet 00:00: mouth [place] 00 every 8 Medical (eight) Branch hours as needed for Itching or Anxiety. Polyethylen 2020- Yes [id number] 17g Take 1 Univers e Glycol 1-11 Packet by ity of 3350 17 00:00: mouth [place] gram powder 00 every 24 Medi jose c (twenty-fo Branch ur) hours as needed for Constipati on. hydrocortis 2019- Yes [id number] Apply to Univers one 2.5 % 1-11 affected ity of cream 00:00: area(s) 2 [place] 00 (two) Medical times Branch daily. hydrOXYzine 2019- Yes [id number] 20mg Take 2 Univers 10 mg 1-11 tablets by ity of tablet 00:00: mouth [place] 00 every 8 Medical (eight) Branch hours as needed for Itching or Anxiety. Polyethylen 2019- Yes [id number] 17g Take 1 Univers e Glycol 1-11 Packet by ity of 3350 17 00:00: mouth [place] gram powder 00 every 24 Medi jose c (twenty-fo Branch ur) hours as needed for Constipati on. hydrocortis 2019-10 Yes [id number] Apply to Univers one 2.5 % 1-11 affected ity of cream 00:00: area(s) 2 [place] 00 (two) Medical times Branch daily. hydrOXYzine 2019-10 Yes [id number] 20mg Take 2 Univers 10 mg 1-11 tablets by ity of tablet 00:00: mouth [place] 00 every 8 Medical (eight) Branch hours as needed for Itching or Anxiety. Polyethylen 2019- Yes [id number] 17g Take 1 Univers e Glycol 1-11 Packet by ity of 3350 17 00:00: mouth [place] gram powder 00 every 24 Medi jose c (twenty-fo Branch ur) hours as needed for Constipati on. triamcinolo 2019- 2020- No [id number] Apply to [facility] 10-23 area(s) 2 ity of acetonide 00:00: 05:59 (two) [place] 0.1 % cream 00 :00 times Medical daily for Branch 14 days. triamcinolo 2019- 2020- No [id number] Apply to [facility] 10-23 area(s) 2 ity of acetonide 00:00: 05:59 (two) [place] 0.1 % cream 00 :00 times Medical daily for Branch 14 days. triamcinolo 2019- 2020- No [id number] Apply to [facility] ne 10-23 area(s) 2 ity of acetonide 00:00: 05:59 (two) [place] 0.1 % cream 00 :00 times Medical daily for Branch 14 days. KCL 2019- 2020- No 40meq 40 mEq, Univers (KLOR-CON 1-10 11-10 Oral, ONCE ity of M20) tablet 16:15: 16:23 NOW, 1 [place] 40 mEq 00 :00 dose, [facility] 08/22/20 Branch at 1015, Routine [...] of acetonide 02:00: dose on [place] (TRIDERM) [facility] Medical 0.1 % cream 08/21/20 at Br anch 2000, Until Discontinu ed, Routine hydrOXYzine 2019-10 Yes 20mg 20 mg, Univ ers (ATARAX) 09 Oral, ity of tablet 20 17:39: Q8HPRN, [place] mg 12 Starting [facility] 08/21/20 at 1139, Until Discontinu ed, Routine, Itching, Anxiety sennosides- 2019-10 Yes 1{tbl} 1 tablet, Univers docusate 09 Oral, ity of sodium 15:00: DAILY, [place] (SENOKOT-S) 00 First dose Me dical 8.6-50 mg on [facility] per tablet 08/21/20 at 1 [...] 25 59 :43 Starting Medica l mg [facility] 08/21/20 at 0656, Until [facility] 08/21/20 at 1139, Routine, Itching, Mild Rash, Congestion /Allergies , alternate with hydroxyzin e hydrOXYzine 2019-10- No 10mg 10 mg, Uni vers (ATARAX) 10-21 Oral, ity of tablet 10 10:20: 12:57 Q6HPRN, [place] mg 22 :12 Starting Medical [facility] 08/21/20 at 0420, Until [facility] 08/21/20 at 0657, Routine, Itching, Anxiety [...] 1 ity o f 09:30: 09:14 dose, [facility] 00 :00 08/21/20 at [facility] 0330, Branch Routine Polyethylen 2019-10 Yes 17g 17 g, Unive rs e Glycol 10-21 Oral, ity of 3350 08:29: [id number], [place] (MIRALAX) 09 Starting Medica l powder 17 g [facility] 08/21/20 at 0229, Until Discontinu [...] (scale 1-3) sotalol 2019-10- No [facility] (B[facility] 10-21 mouth ity of 240 mg 07:43: 00:00 every 12 [place] tablet 30 :00 (twelve) Medical hours. Branch blood sugar Yes Use to [facility] ers diagnostic 4-25 check ity of (FREESTYLE 00:00: blood [place] LITE 00 glucose Medical STRIPS) 4-5 times Branch strip daily. blood sugar Yes Use to [facility] ers diagnostic 4-25 check ity of (FREESTYLE 00:00: blood [place] LITE 00 glucose Medical STRIPS) 4-5 times Branch strip daily. blood sugar Yes Use to [facility] ers diagnostic 4-25 check ity of (FREESTYLE 00:00: blood [place] LITE 00 glucose Medical STRIPS) 4-5 times Branch strip daily. blood sugar Yes Use to [facility] ers diagnostic 4-25 check ity of (FREESTYLE 00:00: blood [place] LITE 00 glucose Medical STRIPS) 4-5 times Branch strip daily. blood sugar Yes Use to [facility] ers diagnostic 4-25 check ity of (FREESTYLE 00:00: blood [place] LITE 00 glucose Medical STRIPS) 4-5 times Branch strip daily. blood sugar Yes Use to [facility] ers diagnostic -25 check ity of (FREESTYLE 00:00: blood [place] LITE 00 glucose Medical STRIPS) 4-5 times Branch strip daily. blood sugar Yes Use to [facility] ers diagnostic -25 check ity of (FREESTYLE 00:00: blood [place] LITE 00 glucose Medical STRIPS) 4-5 times Branch strip daily. Vital Signs Vital Name Observation Time Observation Value Comments Source Systolic blood 2021-08-22 13:00:00 148 mm[Hg] [facility] Diastolic blood 2021-08-22 13:00:00 84 mm[Hg] Unive rsity [facility] Heart rate 2021-08-22 13:00:00 103 /min [facility] Respiratory rate 2021-08-22 13:00:00 18 /min [facility] Oxygen saturation in 2021-08-22 13:00:00 95 /min [facility] Arterial blood by [facility] Pulse oximetry Branch Body temperature 2021-08-22 12:22:00 36.72 [place] [facility] Systolic blood 2020-12-17 18:35:00 139 mm[Hg] Univer sity of [facility] Diastolic blood 2020-12-17 18:35:00 87 mm[Hg] Unive rsity of [facility] Heart rate 2020-12-17 18:35:00 110 /min [facility] Body temperature 2020-12-17 18:35:00 37.72 [place] [facility] Respiratory rate 2020-12-17 18:35:00 18 /min [facility] Oxygen saturation in 2020-12-17 18:35:00 93 /min University of Arterial blood by [facility] jose c Pulse oximetry Branch Body height [...] 93 /min University of Arterial blood by [facility] Pulse oximetry Branch Body height [...] 93 /min [facility] Arterial blood by [facility] Pulse oximetry Branch Body weight 2020-08-21 07:20:00 104.962 kg [facility] [place] [facility] BMI 2020-08-21 07:20:00 32.27 kg/m2 [facility] [place] [facility] Systolic blood 2020-08-23 19:27:00 140 mm[Hg] Univer sity of pressure [facility] Diastolic blood 2020-08-23 19:27:00 79 mm[Hg] [facility] pressure [facility] Heart rate 2020-08-23 19:27:00 99 /min [facility] Body temperature 2020-08-23 19:27:00 36 [facility] Respiratory rate 2020-08-23 19:27:00 18 /min Univ [facility] Oxygen saturation in 2020-08-23 19:27:00 93 /min [facility] Arterial blood by [facility] Pulse oximetry [place] Body weight 2020-08-21 07:20:00 104.962 kg [facility] BMI 2020-08-21 07:20:00 32.27 kg/m2 [facility] Procedures Procedure Date / Time Performing Clinician Source Performed POCT GLUCOSE (AUTOMATED) 2020-12-17 15:42:00 Favio Harrisonal G Uni [facility] BASIC METABOLIC PANEL 2020-12-17 10:45:00 Paul Bean [facility] (NA, K, CL, CO2, GLUCOSE, [facility] BUN, CREATININE, CA) CBC WITH DIFF 2020-12-17 10:45:00 Paul Bean [facility] POCT GLUCOSE (AUTOMATED) 2020-12-17 02:36:00 Vika Harrison G Uni [facility] XR TIBIA FIBULA 2 VW LEFT 2020-12-16 23:38:00 [facility] ([facility]) 2020-12-16 23:20:00 Harrison, [facility]al [facility] PO[facility] GLUCOSE (AUTOMATED) 2020-12-16 20:10:00 Hunter [facility]al [facility] PO[facility] GLUCOSE (AUTOMATED) 2020-12-16 14:43:00 Hunter [facility]al [facility] BASIC METABOLIC PANEL 2020-12-16 13:51:00 Paul Bean [facility] (NA, K, CL, CO2, GLUCOSE, [facility] BUN, CREATININE, CA) CBC WITH DIFF 2020-12-16 13:51:00 Paul Bean [facility] POCT GLUCOSE (AUTOMATED) 2020-12-16 04:00:00 Harrison, Premal G Uni versity of [facility] POCT GLUCOSE (AUTOMATED) 2020-12-16 00:14:00 Harrison, Premal G Uni versity of [facility] CT CHEST PULMONARY 2020-12-15 22:29:38 Paul Bean [facility] ANGIOGRAM [facility] POCT GLUCOSE (AUTOMATED) 2020-12-15 19:26:00 Harrison, Premal G Uni versity of [facility] POCT GLUCOSE (AUTOMATED) 2020-12-15 15:13:00 Harrison, Premal [facility] HB ECG ROUTINE & RHYTHM 2020-12-15 14:25:27 Cailin Romo [facility] MAGNESIUM 2020-12-15 12:01:00 Paul Bean Sivakumar [facility] BASIC METABOLIC PANEL 2020-12-15 12:01:00 Paul Bean [facility] (NA, K, CL, CO2, GLUCOSE, [facility] BUN, CREATININE, CA) CBC WITH DIFF 2020-12-15 12:01:00 Paul Bean Sivakumar [facility] POCT GLUCOSE (AUTOMATED) 2020-12-15 03:57:00 Harrison, Premal G Uni versity of [facility] POCT GLUCOSE (AUTOMATED) 2020-12-14 23:31:00 Harrison, Premal G Uni versity of [facility] POCT GLUCOSE (AUTOMATED) 2020-12-14 19:08:00 Harrison, Premal G Uni versity of [facility] POCT GLUCOSE (AUTOMATED) 2020-12-14 15:11:00 Harrison, Premal G Uni versity of [facility] POCT GLUCOSE (AUTOMATED) 2020-12-14 02:36:00 Harrison, Premal G Uni versity of [facility] POCT GLUCOSE (AUTOMATED) 2020-12-13 23:32:00 Harrison, Premal G Uni versity of [facility] POCT GLUCOSE (AUTOMATED) 2020-12-13 18:08:00 Harrison, Premal G Uni versity of [facility] BASIC METABOLIC PANEL 2020-12-13 15:39:00 Paul Bean [facility] (NA, K, CL, CO2, GLUCOSE, [facility] BUN, CREATININE, CA) CBC WITH DIFF 2020-12-13 15:39:00 Paul Bean [facility] POCT GLUCOSE (AUTOMATED) 2020-12-13 14:06:00 Harrison, Premal G Uni versity of [facility] POCT GLUCOSE (AUTOMATED) 2020-12-13 03:07:00 Harrison, Premal G Uni versity of [facility] POCT GLUCOSE (AUTOMATED) 2020-12-12 23:52:00 Harrison, Premal G Uni versity of [facility] POCT GLUCOSE (AUTOMATED) 2020-12-12 20:28:00 Harrison, Premal G Uni versity of [facility] POCT GLUCOSE (AUTOMATED) 2020-12-12 19:14:00 Harrison, Premal G Uni versity of [facility] POCT GLUCOSE (AUTOMATED) 2020-12-12 14:33:00 Harrison, Premal G Uni versity of [facility] MAGNESIUM 2020-12-12 08:58:00 Paul Bean [facility] BASIC METABOLIC PANEL 2020-12-12 08:58:00 Paul Bean [facility] (NA, K, CL, CO2, GLUCOSE, [facility] BUN, CREATININE, CA) CBC WITH DIFF 2020-12-12 08:58:00 Paul Bean [facility] US ABDOMEN LIMITED 2020-12-12 06:32:26 Paul Bean [facility] POCT GLUCOSE (AUTOMATED) 2020-12-12 03:40:00 Harrison, Premal G Uni versity of [facility] POCT GLUCOSE (AUTOMATED) 2020-12-12 00:06:00 Harrison, Premal G [facility] XR HIPS 3 VW LEFT 2020-12-11 20:20:[address] [facility] HB ECG ROUTINE & RHYTHM 2020-12-11 20:04:06 Demetrius [facility] VITAMIN B6, PLASMA 2020-12-11 19:17:00 Paul Bean Sivakumar [facility] POCT GLUCOSE (AUTOMATED) 2020-12-11 19:06:00 Vika Harrison [facility] CREATINE KINASE 2020-12-11 18:22:00 Parvez [facility] VITAMIN B12, LEVEL 2020-12-11 18:22:00 Vikas [facility] FOLATE 2020-12-11 18:22:00 Vikas [facility] THYROID STIMULATING 2020-12-11 18:22:00 Demetrius [facility] HORMONE [facility] PROCALCITONIN 2020-12-11 18:22:00 Vikas [facility] VITAMIN B1 (THIAMINE), 2020-12-11 18:22:00 [facility] CT HEAD WO CONTRAST 2020-12-11 14:07:35 Sweetie Stout [facility] URINALYSIS 2020-12-11 13:44:00 Singer [facility] URINE CULTURE 2020-12-11 13:44:00 Singer [facility] COVID-19 (ID NOW RAPID 2020-12-11 12:31:00 Paco Lacey [facility] TESTING) Medical Branch LAB ONLY COVID 2020-12-11 12:31:00 Singer [facility] INTERPRETATION [facility] XR CHEST 1 VW 2020-12-11 12:07:24 Singer [facility] BLOOD CULTURE SCREEN 2020-12-11 12:02:00 Paco Lacey [facility] MAGNESIUM 2020-12-11 12:02:00 [facility] FERRITIN SERUM 2020-12-11 12:02:00 Paul Bean [facility] COMP. METABOLIC PANEL 2020-12-11 12:02:00 Singer [facility] ([id number]) [facility] [place] CBC WITH DIFF 2020-12-11 12:02:00 Singer [facility] LACTIC ACID WHOLE BLOOD 2020-12-11 12:02:00 Singer Paco [facility] BLOOD CULTURE SCREEN 2020-12-11 11:42:00 Singer Paco [facility] EMERGENCY SERVICES 2020-12-11 06:01:00 Doctor Unassnadya, [facility] AGREEMENTS AND [place] [facility] [place] AUTHORIZATIONS HOSPITAL ADMISSION 2020-12-11 06:01:00 Doctor Unaowen, [facility] Name [facility] [place] HOME HEALTH - OTHER 2020-11-11 06:01:00 Doctor Tabitha [facility] [place] [facility] [place] HOME HEALTH - OTHER 2020-10-30 06:01:00 Doctor Unaowen [facility] Name [facility] [place] EXTERNAL PROVIDER RECORDS 2020-09-01 06:01:00 Doctor Tabitha, [facility] Name [facility] POCT GLUCOSE (AUTOMATED) 2020-08-23 18:09:00 Kelly [facility] POCT GLUCOSE (AUTOMATED) 2020-08-23 14:14:00 Kelly [facility] MAGNESIUM 2020-08-23 11:18:00 Ramya [facility] BASIC METABOLIC PANEL 2020-08-23 11:18:00 [place] [facility] (NA, K, CL, CO2, GLUCOSE, Medica l Branch BUN, CREATININE, CA) CBC WITH DIFF 2020-08-23 11:18:00 Milford [facility] POCT GLUCOSE (AUTOMATED) 2020-08-23 10:21:00 Kelly [facility] POCT GLUCOSE (AUTOMATED) 2020-08-23 05:55:00 Kelly [facility] POCT GLUCOSE (AUTOMATED) 2020-08-23 03:00:00 Kelly Washington Jada versity of [facility] POCT GLUCOSE (AUTOMATED) 2020-08-22 23:38:00 Kelly Washington Jada versity of [facility] POCT GLUCOSE (AUTOMATED) 2020-08-22 19:04:00 Kelly Washington Jada versity of [facility] POCT GLUCOSE (AUTOMATED) 2020-08-22 13:49:00 Kelly Washington Jada versity [facility] MAGNESIUM 2020-08-22 10:10:00 Ramya, [facility] HEPATIC FUNCTION PANEL 2020-08-22 10:10:00 Aguila Melchor [facility] ([id number]) (ALB,T.PRO,BILI Medical Branch T,BU/BC,ALT,AST,ALK PHOS) BASIC METABOLIC PANEL 2020-08-22 10:10:00 [place] [facility] (NA, K, CL, CO2, GLUCOSE, Medica l Branch BUN, CREATININE, CA) LIPID PANEL (02057)(TOTAL 2020-08-22 10:10:00 [place], [facility] CHOLESTEROL, [facility] [place] TRIGLYCERIDES, HDL) CBC WITH DIFF 2020-08-22 10:10:00 [place], [facility] POCT GLUCOSE (AUTOMATED) 2020-08-22 10:10:00 [facility] PO[facility] GLUCOSE (AUTOMATED) 2020-08-22 07:13:00 Kelly [place] versity of [facility] POCT GLUCOSE (AUTOMATED) 2020-08-22 02:24:00 Kelly [place] versity of [facility] POCT GLUCOSE (AUTOMATED) 2020-08-21 23:40:00 Kelly [place] versity of [facility] POCT GLUCOSE (AUTOMATED) 2020-08-21 18:10:00 Kelly [place] versity of [facility] POCT GLUCOSE (AUTOMATED) 2020-08-21 13:39:00 Kelly [facility] ETHANOL 2020-08-21 12:35:00 [facility] ACTIV[facility] PARTIAL 2020-08-21 12:35:00 Padmini [facility] GALV ONLY - SYPHILIS 2020-08-21 12:35:00 Padmini [facility] IGG/IGM [facility] LACTATE DEHYDROGENASE 2020-08-21 10:09:00 Ramya, [facility] GALV/CLC ONLY - URINE 2020-08-21 10:09:00 Richie [facility] DRUG (IMMUNOASSAY) - 4 ER Medica l Branch PANEL URINALYSIS 2020-08-21 10:09:00 [place], [facility] URINE CULTURE 2020-08-21 10:09:00 Ramya, [facility] PROCALCITONIN 2020-08-21 10:09:00 Ramya, [facility] POCT GLUCOSE (AUTOMATED) 2020-08-21 09:41:00 Kelly [facility] PROTHROMBIN TIME / INR 2020-08-21 08:32:00 Ramya, [facility] ACTIVATED PARTIAL 2020-08-21 08:32:00 Ramya, [facility] C-REACTIVE PROTEIN 2020-08-21 08:31:00 [place], [facility] HEPATIC FUNCTION PANEL 2020-08-21 08:31:00 [place], [facility] ([id number]) (ALB,T.PRO,BILI Medical Branch T,BU/BC,ALT,AST,ALK PHOS) BASIC METABOLIC PANEL 2020-08-21 08:31:00 [place], [facility] (NA, K, CL, CO2, GLUCOSE, Medica l Branch BUN, CREATININE, CA) SEDIMENTATION RATE 2020-08-21 08:31:00 Ramya, [facility] CBC WITH DIFF 2020-08-21 08:31:00 Ramya, [facility] GLYCOSYLATED HEMOGLOBIN 2020-08-21 08:31:00 [place], [facility] (A1C) [facility] [place] HIV 1/2 AG-AB WITH REFLEX 2020-08-21 08:31:00 [facility] COVID-19 (ID NOW RAPID 2020-08-21 08:20:00 Haily Bui [facility] TESTING) Medical Branch LAB ONLY COVID 2020-08-21 08:20:00 [place] [facility] [place] INTERPRETATION [facility] Branch Encounters Start End Encounter Admission Attending Care Care Encounter Source Date/Time Date/Time Type Type Clinicians Facility Department ID 2022-11-13 Outpatient 3 [id number] ENCPL REF [id number] [facility] 11:39:58 0201 [facility] Peariftikhar dang 2020-08-21 Inpatient U WASHINGTON, ALTONG KVNG [id number] Univers 01:07:00 KELLY cantu [facility] 2022-11-14 2022-11-28 Inpatient 3 [facility] ENCPL DELVIS [id number] [facility] 20:40:00 13:29:00 shaggy 0202 [facility] Health Rehabil itation Peariftikhar d 2021-08-22 2021-08-22 Emergency X [facility] ERT [id number] Univers 06:21:00 08:02:00 SWEETIE cantu [facility] 2021-08-22 2021-08-22 Emergency StoutRUST [id number] Univers 06:21:00 08:02:00 Sweetie LOTT [id number] i ty of [place] 4.2.7.2.686 [facility] s [place] [id number] [facility] 084 Branch 2020-12-28 2020-12-28 Telephone [facility] 1.2.840.114 [id number] Univers 00:00:00 00:00:00 Calvin WILLIAM [id number] it y of CARE 4.2.7.2.686 [facility] [id number] Ri dical 220 Branch 2020-12-28 2020-12-28 Telephone WorleyRUST 1.2.840.114 [id number] 00:00:00 00:00:00 Calvin WILLIAM [id number] CARE 4.2.7.2.686 [facility] [id number] 220 2020-12-19 2020-12-19 Transition Tuan Peters 1.2.840.114 [id number] Univers 00:00:00 00:00:00 of Care Ruchi Braswell [id number] it y [place] [id number] [facility] 403 Branch 2020-12-19 2020-12-19 Transition Tuan Peters 1.2.840.114 [id number] 00:00:00 00:00:00 of Care Ruchi Braswell [id number] Monitor 4.2.7.2.686 [id number] 2020-12-11 2020-12-17 [facility] Paco Lacey 1.2.840.1 [id number] Univers 05:11:00 16:00:00 Encounter HarrisonFaviovik Amaya [id number] ity of [facility] 4.2.7.2.686 [place] [id number] [facility] 096 Branch 2020-12-11 2020-12-17 Inpatient X [facility] [id number] Univers 05:11:00 16:00:00 ity of [facility] 2020-12-11 2020-12-17 [facility] Paco Lacey 1.2.840.1 14 [id number] 05:11:00 16:00:00 Encounter Vika Harrison Monique [id number] [facility] 4.2.7.2.686 [id number] 2020-11-16 2020-11-16 Emergency X RUST ERT [id number] Univers 09:31:00 09:31:00 PACO cantu of [facility] 2020-11-11 2020-11-11 Orders Doctor CUI 1.2.840.114 [id number] Univers 00:00:00 00:00:00 Only Unassigned, MONIQUE 350.1.13.10 ity of [place] [facility] 4.2.7.2.686 Jeff as [id number] [address] 2020-11-11 2020-11-11 Orders Doctor BASILIA 1.2.840.114 [id number] 00:00:00 00:00:00 Only Unassigned, MONIQUE 350.1.13.10 [place] [facility] 4.2.7.2.686 [id number] [facility] 2020-11-07 2020-11-07 Telephone [facility] [id number] [facility] 00:00:00 00:00:00 Sendsiobhan Lott 350.1.13.10 ity of [place] Profess[place] [id number] [address] 2020-11-07 2020-11-07 [facility]phone [facility] [id number] 00:00:00 00:00:00 Angi Lott 350.1.13.10 [place] 4.2.7.2.686 Professio [id number] [address] 2020-10-30 2020-10-30 Orders Doctor BASILIA 1.2.840.114 [id number] [facility] 00:00:00 00:00:00 Only Unassigned, MONIQUE 350.1.13.10 ity of [place] [facility] 4.2.7.2.686 Jeff as [id number] [address] 2020-10-30 2020-10-30 Orders Doctor BASILIA 1.2.840.114 [id number] 00:00:00 00:00:00 Only Unassigned, MONIQUE 350.1.13.10 [place] [facility] 4.2.7.2.686 [id number] [facility] 2020-09-26 2020-09-26 Telephone [facility] 1.2.840.114 [id number] [facility] 00:00:00 00:00:00 [facility] 350.1.13.10 i ty of CLIN[id number] [address] 2020-09-26 2020-09-26 Telephone [facility] 1.2.840.114 [id number] 00:00:00 00:00:00 [facility] 350.1.13.10 CLINICS 4.2.7.2.686 [id number] 2020-09-01 2020-09-01 Orders Doctor BASILIA 1.2.840.114 [id number] Univers 00:00:00 00:00:00 Only Unassigned, MONIQUE 350.1.13.10 ity of [place] [facility] 4.2.7.2.686 Jeff as [id number] [facility] 009 Branch 2020-09-01 2020-09-01 Orders Doctor BASILIA 1.2.840.114 [id number] 00:00:00 00:00:00 Only Unassigned, MONIQUE 350.1.13.10 [place] [facility] 4.2.7.2.686 [id number] 2020-08-25 2020-08-25 Transition Tuan Peters 1.2.840.114 [id number] Univers 00:00:00 00:00:00 of Care Ruchi Braswell 350.1.13.10 it y of [place] [id number] [facility] 403 Branch 2020-08-25 2020-08-25 Transition Tuan Peters 1.2.840.114 [id number] 00:00:00 00:00:00 of Care Ruchi Braswell 350.1.13.10 [place] 4.2.7.2.686 [id number] 2020-08-21 2020-08-23 [facility] 1. 2.840.114 [id number] [facility] 01:07:00 18:35:00 Encounter Mukul Gallardoy 350.1.13. 10 ity of [facility] 4.2.7.2.686 Jeff as [id number] [facility] 095 Branch 2020-08-21 2020-08-23 [facility] Ayleen 1.2.840.114 [id number] 01:07:00 18:35:00 Encounter Kelly Monique 350.1.13.10 [facility] 4.2.7.2.686 [id number] [id number] Results Test Description Test Time Test Comments Results Result Comments Source POCT GLUCOSE (AUTOMATED) 2020-12-17 15:43:35 Test Item Value Reference Range Interpretation Comme nts POCT GLU (test code = 5775507128) 129 mg/dL 70-110 H Lab Interpretation (test code = 25584-3) Abnormal [facility] METABOLIC PANEL (NA, K, CL, CO2, GLUCOSE, BUN, CREATININE, CA)2020-12-17 11:45:07 Test Item Value Reference Range Interpretation Comments NA (test code = 137 mmol/L 135-145 3139861488) K (test code = 3.5 mmol/L 3.5-5.0 5497618976) CL (test code = 103 mmol/L 98-108 2262635385) CO2 TOTAL (test code = 26 mmol/L 23-31 7423115363) AGAP (test code = 2-16 7635623612) BUN (test code = 11 mg/dL 7-23 6235461337) GLUCOSE (test code = 175 mg/dL 70-110 H 6127890381) CREATININE (test code = 0.62 mg/dL 0.60-1.25 4576087257) CALCIUM (test code = 9.0 mg/dL 8.6-10.6 9687997693) eGFR Calculation mL/min/1.73m2 (Non-) (test code = 4301876269) eGFR Calculation mL/min/1.73m2 () (test code = 3627635792) JAMES (test code = JAMES) Association of [...] tests). Lab Interpretation Abnormal (test code = 79204-5) [facility] WITH [id number] 11:07:27 Test Item Value Reference Range Interpretation [...] RDW-SD (test code = 45.2 fL 38.5-51.6 57217-4) RDW-CV (test code = 16.9 % 12.1-15.4 H 788-0) PLT (test code = See_Comment H [Automated 777-3) message] The sy stem which generated this result transmitted reference range : 150 - 328 10*3/ ?L. The reference r torito was not used to interpret this result as normal/abnormal . MPV (test code = 8.1 fL 9.8-13.0 L 36237-5) NRBC/100 WBC (test See_Comment [Automat ed code = 3731336081) message] The system which generated this result transmitted reference range : 0.0 - 10.0 /100 WBCs. The refer ence range was not u sed to interpret th is result as normal/abnormal . NRBC x10^3 (test code <0.01 See_Comment [Auto mated = 5540888945) message] The s ystem which generated this result transmitted reference range : 10*3/?L. The reference range was not used to interpret this result as normal/abnormal . GRAN MAT (NEUT) % 72.8 % (test code = 770-8) IMM GRAN % (test code 0.60 % = 3859631864) LYMPH % (test code = 18.4 % 736-9) MONO % (test code = 5.7 % 5905-5) EOS % (test code = 1.8 % 713-8) BASO % (test code = 0.7 % 706-2) GRAN MAT x10^3(ANC) 8.23 10*3/uL 1.99-6.95 H (test code = 4742339967) IMM GRAN x10^3 (test 0.07 10*3/uL 0.00-0.06 H code = 8609228940) LYMPH x10^3 (test code 2.08 10*3/uL 1.09-3.23 = 731-0) MONO x10^3 (test code 0.65 10*3/uL 0.36-1.02 = 742-7) EOS x10^3 (test code = 0.20 10*3/uL 0.06-0.53 711-2) BASO x10^3 (test code 0.08 10*3/uL 0.01-0.09 = 704-7) Lab Interpretation Abnormal (test code = 30402-0) [facility] GLUCOSE (AUTOMATED)2020-12-17 06:03:38 Test Item Value Reference Range Interpretation Comments POCT GLU (test code = 7065815294) 75 mg/dL 70-110 Lab Interpretation (test code = Normal 88670-1) [facility] [id number] 00:01:00 Test Item Value Reference Range Interpretation Comments VIT B6 (test code = 13.1 nmol/L 20.0-125.0 L INTERPRE TIVE 02676-1) INFORMATION: Vi tamin B6 (Pyridoxal 5-Phosphate) Pyridoxal 5'-phosphate me asured in a specimen collected follo wing an 8-hour or overnight fast accurately clara cates vitamin B6 nutritional sta tus. Non-fasting spe cimen concentration reflects recent vitamin intake. This test was develo ped and its perform ance characteristics determined by [facility]. I t has not been cleare d or approved by the [place] Food and Drug Administration. This test was perfor med in a CLIA certifie d laboratory and is intended for cl inical purposes.Perfor med By: [employer] [place] [address] [id number] Director: Namrata Klein MD Lab Interpretation Abnormal (test code = 38619-6) [facility] FIBUL[facility] 2 VW [id number] 23:57:09 Tricompartmental knee joint osteoarthrosis.XR TIBIA FIBULA 2 VW LEFT INDICATION: Left lower extremity pain from knee down to ankle COMPARISON: None FINDINGS: Moderate to severe tricompartmental knee joint osteoarthrosis. Diffusemuscle atrophy and osteopenia. No acute fracture or dislocation. Demb, Radiant Results Inft User - 12/16/2020 5:58 PM CSTXR TIBIA FIBULA 2 VW LEFTINDICATION: Left lower extremity pain from knee down to ankle COMPARISON: NoneFINDINGS:Moderate to severe tricompartmental knee joint osteoarthrosis. Diffusemuscle atrophy and osteopenia. No acute fracture or dislocation.IMPRESSIONTricompartmental knee joint osteoarthrosis.[facility] GLUCOSE (AUTOMATED) 2020-12-16 23:27:00 Test Item Value Reference Range Interpretation Comments POCT GLU (test code = 9734523782) 114 mg/dL 70-110 H Lab Interpretation (test code = Abnormal 95141-3) [facility] GLUCOSE (AUTOMATED)2020-12-16 20:12:00 Test Item Value Reference Range Interpretation Comments POCT GLU (test code = 7730921332) 105 mg/dL 70-110 Lab Interpretation (test code = Normal 00561-1) [facility] 14:44:00 Test Item Value Reference Range Interpretation Comments POCT GLU (test code = 6885943364) 153 mg/dL 70-110 H Lab Interpretation (test code = Abnormal 19240-8) [facility] METABOLIC PANEL (NA, K, CL, CO2, GLUCOSE, BUN, CREATININE, CA)2020-12-16 14:23:00 Test Item Value Reference Range Interpretation Comments NA (test code = 138 mmol/L 135-145 5528931987) K (test code = 3.4 mmol/L 3.5-5.0 L 3701248683) CL (test code = 100 mmol/L 98-108 4486479661) CO2 TOTAL (test code = 31 mmol/L 23-31 4097529823) AGAP (test code = 2-16 2210606672) BUN (test code = 11 mg/dL 7-23 2916475419) GLUCOSE (test code = 162 mg/dL 70-110 H 4260183246) CREATININE (test code = 0.64 mg/dL 0.60-1.25 3615913882) CALCIUM (test code = 8.9 mg/dL 8.6-10.6 0280634303) eGFR Calculation mL/min/1.73m2 (Non-) (test code = 9696456029) eGFR Calculation mL/min/1.73m2 () (test code = 4110343119) JAMES (test code = JAMES) Association of [...] tests). Lab Interpretation Abnormal (test code = 58626-5) [facility] WITH [id number] 14:05:00 Test Item Value Reference Range Interpretation Comments WBC (test code = See_Comment H [Automated 4290-2) message] The sy stem which generated this [...] RDW-SD (test code = 45.4 fL 38.5-51.6 99947-2) RDW-CV (test code = 17.0 % 12.1-15.4 H 788-0) PLT (test code = See_Comment H [Automated 777-3) message] The sy stem which generated this result transmitted reference range : 150 - 328 10*3/ ?L. The reference r torito was not used to interpret this result as normal/abnormal . MPV (test code = 8.0 fL 9.8-13.0 L 05832-8) NRBC/100 WBC (test See_Comment [Automat ed code = 7694290462) message] The system which generated this result transmitted reference range : 0.0 - 10.0 /100 WBCs. The refer ence range was not u sed to interpret th is result as normal/abnormal . NRBC x10^3 (test code <0.01 See_Comment [Auto mated = 1009377840) message] The s ystem which generated this result transmitted reference range : 10*3/?L. The reference range was not used to interpret this result as normal/abnormal . GRAN MAT (NEUT) % 70.0 % (test code = 770-8) IMM GRAN % (test code 0.70 % = 6031417663) LYMPH % (test code = 20.5 % 736-9) MONO % (test code = 7.1 % 5905-5) EOS % (test code = 1.0 % 713-8) BASO % (test code = 0.7 % 706-2) GRAN MAT x10^3(ANC) 9.44 10*3/uL 1.99-6.95 H (test code = 1959162840) IMM GRAN x10^3 (test 0.09 10*3/uL 0.00-0.06 H code = 3947104842) LYMPH x10^3 (test code 2.76 10*3/uL 1.09-3.23 = 731-0) MONO x10^3 (test code 0.96 10*3/uL 0.36-1.02 = 742-7) EOS x10^3 (test code = 0.13 10*3/uL 0.06-0.53 711-2) BASO x10^3 (test code 0.10 10*3/uL 0.01-0.09 H = 704-7) Lab Interpretation Abnormal (test code = 43550-4) [facility] - [facility] # [id number] 13:01:00 Test Item Value Reference Range Interpretation Comments Blood Culture-Aerobic No organisms No growth Previo us (test code = 82128-1) isolated prelim inary verified result was Culture In Progress on 12/11/2020 at 100 1 CSTPrevious preliminary verified result was No growth a t 24 hours on 12/12/2020 at 070 1 CSTPrevious preliminary verified result was No growth a t 48 hours on 12/13/2020 at 070 1 CSTPrevious preliminary verified result was No growth a t 72 hours on 12/14/2020 at 070 1 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 Blood No organisms No growth Previous Culture-Anaerobic isolated preliminar y (test code = 79416-5) verifi ed result was Culture In Progress on 12/11/2020 at 100 1 CSTPrevious preliminary verified result was No growth a t 24 hours on 12/12/2020 at 070 1 CSTPrevious preliminary verified result was No growth a t 48 hours on 12/13/2020 at 070 1 CSTPrevious preliminary verified result was No growth a t 72 hours on 12/14/2020 at 070 1 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 Lab Interpretation Normal (test code = 39757-4) [facility] # [id number] 13:01:00 Test Item Value Reference Range Interpretation Comments Blood Culture-Aerobic No organisms No growth Previo us (test code = 07033-9) isolated prelim inary verified result was Culture In Progress on 12/11/2020 at 100 1 CSTPrevious preliminary verified result was No growth a t 24 hours on 12/12/2020 at 070 1 CSTPrevious preliminary verified result was No growth a t 48 hours on 12/13/2020 at 070 1 CSTPrevious preliminary verified result was No growth a t 72 hours on 12/14/2020 at 070 1 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 Blood No organisms No growth Previous Culture-Anaerobic isolated preliminar y (test code = 45583-5) verifi ed result was Culture In Progress on 12/11/2020 at 100 1 CSTPrevious preliminary verified result was No growth a t 24 hours on 12/12/2020 at 070 1 CSTPrevious preliminary verified result was No growth a t 48 hours on 12/13/2020 at 070 1 CSTPrevious preliminary verified result was No growth a t 72 hours on 12/14/2020 at 070 1 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 No interval change in [...] stableappearance of intra and extrahepatic biliary ductal dilatation.[facility] GLUCOSE (AUTOMATED)2020-12-15 19:28:00 Test Item Value Reference Range Interpretation Comments POCT GLU (test code = 6233982485) 140 mg/dL 70-110 H Lab Interpretation (test code = Abnormal 41491-8) [facility] 15:26:00 Test Item Value Reference Range Interpretation Comments MAGNESIUM (test code = 2267965024) 2.2 mg/dL 1.7-2.4 Lab Interpretation (test code = Normal 88185-3) [facility] GLUCOSE (AUTOMATED)2020-12-15 15:15:00 Test Item Value Reference Range Interpretation Comments POCT GLU (test code = 3043632106) 181 mg/dL 70-110 H Lab Interpretation (test code = Abnormal 87384-6) [facility] (NA, K, CL, CO2, GLUCOSE, BUN, CREATININE, CA)2020-12-15 13:07:00 Test Item Value Reference Range Interpretation Comments NA (test code = 136 mmol/L 135-145 7011449510) K (test code = 3.6 mmol/L 3.5-5.0 9591296760) CL (test code = 96 mmol/L 98-108 L 2665697106) CO2 TOTAL (test code = 29 mmol/L 23-31 5236927333) AGAP (test code = 2-16 5322089996) BUN (test code = 12 mg/dL 7-23 3874935578) GLUCOSE (test code = 183 mg/dL 70-110 H 3900223146) CREATININE (test code = 0.70 mg/dL 0.60-1.25 8360143698) CALCIUM (test code = 9.2 mg/dL 8.6-10.6 6865332960) eGFR Calculation mL/min/1.73m2 (Non-) (test code = 0920430486) eGFR Calculation mL/min/1.73m2 () (test code = 5669221517) JAMES (test code = JAMES) Association of [...] tests). Lab Interpretation Abnormal (test code = 58129-0) [facility] WITH [id number] 12:32:00 Test Item Value Reference Range Interpretation Comments WBC (test code = See_Comment H [Automated 0990-2) message] The system which generated this result transmit ronan reference range : 4.20 - 10.70 10*3/?L. The reference range was not used to interpret this result as normal/abnormal . RBC (test code = See_Comment H [Automated 549-8) message] The system which generated this result [...] RDW-SD (test code = 44.4 fL 38.5-51.6 39372-4) RDW-CV (test code = 17.7 % 12.1-15.4 H 788-0) PLT (test code = See_Comment H [Automated 777-3) message] The system which generated this result transmit ronan reference range : 150 - 328 10*3/ ?L. The reference range was not u sed to interpret th is result as normal/abnormal . MPV (test code = 8.1 fL 9.8-13.0 L 02075-5) NRBC/100 WBC (test See_Comment [Automat ed code = 6389651173) message] The system which generated this result transmit ronan reference range : 0.0 - 10.0 /100 WBCs. The reference range was not used to interpret this result as normal/abnormal . NRBC x10^3 (test code <0.01 See_Comment [Auto mated = 3043325658) message] The system which generated this result transmit ronan reference range : 10*3/?L. The reference range was not used to interpret this result as normal/abnormal . GRAN MAT (NEUT) % 74.5 % (test code = 770-8) IMM GRAN % (test code 0.70 % = 3085873736) LYMPH % (test code = 17.4 % 736-9) MONO % (test code = 6.8 % 5905-5) EOS % (test code = 0.2 % 713-8) BASO % (test code = 0.4 % 706-2) GRAN MAT x10^3(ANC) 11.99 10*3/uL 1.99-6.95 H (test code = 7070226597) IMM GRAN x10^3 (test 0.11 10*3/uL 0.00-0.06 H code = 2830149725) LYMPH x10^3 (test code 2.80 10*3/uL 1.09-3.23 = 731-0) MONO x10^3 (test code 1.10 10*3/uL 0.36-1.02 H = 742-7) EOS x10^3 (test code = 0.03 10*3/uL 0.06-0.53 L 711-2) BASO x10^3 (test code 0.06 10*3/uL 0.01-0.09 = 704-7) Lab Interpretation Abnormal (test code = 57310-5) [facility] GLUCOSE (AUTOMATED)2020-12-15 04:16:00 Test Item Value Reference Range Interpretation Comments POCT GLU (test code = 1681345229) 200 mg/dL 70-110 H Lab Interpretation (test code = Abnormal 30342-2) [facility] (THIAMINE), WHOLE [id number] 00:30:00 Test Item Value Reference Range Interpretation Comments Vitamin B1, Whole 136 nmol/L 70-180 INTERPRETI VE INFORMATION: Blood (test code = Vitamin B 1, Whole Blood 22093-7) This assay júnior ures the concentration o [...] for clinical purposes.Perfor med By: [facility] [place] [address] [id number] aboratory Director: Namrata Klein MD [facility] GLUCOSE (AUTOMATED)2020-12-14 23:35:00 Test Item Value Reference Range Interpretation Comments POCT GLU (test code = 0084330427) 151 mg/dL 70-110 H Lab Interpretation (test code = Abnormal 34734-4) [facility] GLUCOSE (AUTOMATED)2020-12-14 19:19:00 Test Item Value Reference Range Interpretation Comments POCT GLU (test code = 9400628562) 193 mg/dL 70-110 H Lab Interpretation (test code = Abnormal 46728-9) [facility] GLUCOSE (AUTOMATED)2020-12-14 15:22:00 Test Item Value Reference Range Interpretation Comments POCT GLU (test code = 5794921087) 221 mg/dL 70-110 H Lab Interpretation (test code = Abnormal 75600-8) [facility] GLUCOSE (AUTOMATED)2020-12-14 02:37:00 Test Item Value Reference Range Interpretation Comments POCT GLU (test code = 5648224006) 210 mg/dL 70-110 H Lab Interpretation (test code = Abnormal 66861-3) [facility] GLUCOSE (AUTOMATED)2020-12-13 23:33:00 Test Item Value Reference Range Interpretation Comments POCT GLU (test code = 3912047015) 182 mg/dL 70-110 H Lab Interpretation (test code = Abnormal 81960-4) [facility] GLUCOSE (AUTOMATED)2020-12-13 18:09:00 Test Item Value Reference Range Interpretation Comments POCT GLU (test code = 0657258349) 150 mg/dL 70-110 H Lab Interpretation (test code = Abnormal 40353-4) [facility] METABOLIC PANEL (NA, K, CL, CO2, GLUCOSE, BUN, CREATININE, CA)2020-12-13 16:27:00 Test Item Value Reference Range Interpretation Comments NA (test code = 136 mmol/L 135-145 4592280227) K (test code = 3.7 mmol/L 3.5-5.0 3572387229) CL (test code = 96 mmol/L 98-108 L 3073152314) CO2 TOTAL (test code = 29 mmol/L 23-31 1907190468) AGAP (test code = 2-16 8496882920) BUN (test code = 6 mg/dL 7-23 L 7401839905) GLUCOSE (test code = 212 mg/dL 70-110 H 4370536591) CREATININE (test code = 0.61 mg/dL 0.60-1.25 5738276755) CALCIUM (test code = 9.5 mg/dL 8.6-10.6 0001449169) eGFR Calculation mL/min/1.73m2 (Non-) (test code = 1700356216) eGFR Calculation mL/min/1.73m2 () (test code = 4264471112) JAMES (test code = JAMES) Association of [...] tests). Lab Interpretation Abnormal (test code = 31929-0) [facility] WITH [id number] 16:10:00 Test Item Value Reference Range Interpretation Comments WBC (test code = See_Comment H [Automated 7990-2) message] The sy stem which generated this result transmitted reference range : 4.20 - 10.70 10*3/?L. The reference range was not used to interpret this result as normal/abnormal . RBC (test code = See_Comment H [Automated 769-8) message] The sy stem which generated this [...] RDW-SD (test code = 43.3 fL 38.5-51.6 63841-9) RDW-CV (test code = 16.2 % 12.1-15.4 H 788-0) PLT (test code = See_Comment H [Automated 777-3) message] The sy stem which generated this result transmitted reference range : 150 - 328 10*3/ ?L. The reference r torito was not used to interpret this result as normal/abnormal . MPV (test code = 8.2 fL 9.8-13.0 L 80673-4) NRBC/100 WBC (test See_Comment [Automat ed code = 6179028353) message] The system which generated this result transmitted reference range : 0.0 - 10.0 /100 WBCs. The refer ence range was not u sed to interpret th is result as normal/abnormal . NRBC x10^3 (test code <0.01 See_Comment [Auto mated = 8550956216) message] The s ystem which generated this result transmitted reference range : 10*3/?L. The reference range was not used to interpret this result as normal/abnormal . GRAN MAT (NEUT) % 86.2 % (test code = 770-8) IMM GRAN % (test code 0.70 % = 5158830072) LYMPH % (test code = 10.2 % 736-9) MONO % (test code = 2.5 % 5905-5) EOS % (test code = 0.1 % 713-8) BASO % (test code = 0.3 % 706-2) GRAN MAT x10^3(ANC) 9.61 10*3/uL 1.99-6.95 H (test code = 2068736135) IMM GRAN x10^3 (test 0.08 10*3/uL 0.00-0.06 H code = 1404935796) LYMPH x10^3 (test code 1.14 10*3/uL 1.09-3.23 = 731-0) MONO x10^3 (test code 0.28 10*3/uL 0.36-1.02 L = 742-7) EOS x10^3 (test code = <0.03 0.06-0.53 L 711-2) BASO x10^3 (test code 0.03 10*3/uL 0.01-0.09 = 704-7) Lab Interpretation Abnormal (test code = 23792-8) [facility]2020-12-13 14:16:00 Test Item Value Reference Range Interpretation Comments POCT GLU (test code = 7813384072) 236 mg/dL 70-110 H Lab Interpretation (test code = Abnormal 96460-4) [facility] COVID [id number] 04:58:00COVID DMT InterpretationInterpretation/Recommendations: Molecular NAAT Tests for [...] COVID-19 testing the patient has had at [facility], including molecular NAAT testing (more commonly known as PCR testing and Rapid ID Now testing) and antibody testing. It does not take into account any testingthat a patient has had outside of the [facility] medical record. [facility] LABORATORY SERVICESCOVID DrofimjKHNM-HzM-5 Rapid ID NOW (no units) ? ? Date ? Value ? 12/11/2020 ? Not Detected ? ? ? 11/16/2020 ? Not Detected ? ? ? 08/21/2020 ? Not Detected ? [facility] 2020-12-13 03:11:00 Test Item Value Reference Range Interpretation Comments POCT GLU (test code = 7284795295) 171 mg/dL 70-110 H Lab Interpretation (test code = Abnormal 97655-4) [facility] GLUCOSE (AUTOMATED)2020-12-13 00:00:00 Test Item Value Reference Range Interpretation Comments POCT GLU (test code = 3586906503) 118 mg/dL 70-110 H Lab Interpretation (test code = Abnormal 60803-8) [facility] GLUCOSE (AUTOMATED)2020-12-12 20:29:00 Test Item Value Reference Range Interpretation Comments POCT GLU (test code = 0993651990) 173 mg/dL 70-110 H Lab Interpretation (test code = Abnormal 91689-6) [facility]OMEN [id number] 19:56:17 1. ?Hepatic steatosis. However, limited evaluation [...] main portal veinwasevaluated with color Doppler imaging. Assistant Floor Covering Printer images were obtainedfor the record. COMPARISON: Ultrasound [...] normal where visualized. SPLEEN:No images were obtained. [facility], Radiant Results Inft User - 12/12/2020 1:57 PM CSTEXAM: US ABDOMEN LIMITEDHISTORY: 70 years-old male with RUQ ultrasound to assess for common bileduct dilation .TECHNIQUE: Limited abdominal ultrasound focused on the liver, biliarysystem, pancreas, and spleen was performed. The main portal vein wasevaluated with color Doppler imaging. Assistant Floor Covering Printer images wereobtainedfor the record.COMPARISON: Ultrasound abdomen 11/17/2028. [...] this study and agree with the abovereport.[facility]2020-12-12 19:24:00 Test Item Value Reference Range Interpretation Comments POCT GLU (test code = 7608923749) 230 mg/dL 70-110 H Lab Interpretation (test code = Abnormal 65778-4) [facility] CHEST 1 [id number] 15:16:46 Low lung volumes with mild perihilar [...] this study and agree with theabove report.[facility]2020-12-12 14:34:00 Test Item Value Reference Range Interpretation Comments POCT GLU (test code = 4687055366) 225 mg/dL 70-110 H Lab Interpretation (test code = Abnormal 72209-1) [facility] HospitalURINE [id number] 13:28:00 Test Item Value Reference Range Interpretation Comments URINE CULTURE (test < 10,000 CFU/mL mixed code = 630-4) aerobic organisms - suggests endogenous microbial contamination [facility] (NA, K, CL, CO2, GLUCOSE, BUN, CREATININE, CA)2020-12-12 10:05:00 Test Item Value Reference Range Interpretation Comments NA (test code = 136 mmol/L 135-145 3198009399) K (test code = 3.5 mmol/L 3.5-5.0 1659139142) CL (test code = 100 mmol/L 98-108 5626021134) CO2 TOTAL (test code = 31 mmol/L 23-31 1760788906) AGAP (test code = 2-16 1921100277) BUN (test code = 7 mg/dL 7-23 7778671129) GLUCOSE (test code = 259 mg/dL 70-110 H 0838937887) CREATININE (test code = 0.63 mg/dL 0.60-1.25 3240273862) CALCIUM (test code = 8.5 mg/dL 8.6-10.6 L 3502023199) eGFR Calculation mL/min/1.73m2 (Non-) (test code = 5639359377) eGFR Calculation mL/min/1.73m2 () (test code = 9593660402) JAMES (test code = JAMES) Association of [...] tests). Lab Interpretation Abnormal (test code = 80678-5) [facility] HospitalMagnesium [id number] 10:05:00 Test Item Value Reference Range Interpretation Comments MAGNESIUM (test code = 6877258170) 1.9 mg/dL 1.7-2.4 Lab Interpretation (test code = Normal 59571-4) [facility] with [id number] 09:48:00 Test Item Value Reference Range Interpretation Comments WBC (test code = See_Comment [Automated 8590-2) message] The sy stem which generated this [...] RDW-SD (test code = 46.0 fL 38.5-51.6 76958-5) RDW-CV (test code = 16.1 % 12.1-15.4 H 788-0) PLT (test code = See_Comment H [Automated 777-3) message] The sy stem which generated this result transmitted reference range : 150 - 328 10*3/ ?L. The reference r torito was not used to interpret this result as normal/abnormal . MPV (test code = 8.6 fL 9.8-13.0 L 03697-6) NRBC/100 WBC (test See_Comment [Automat ed code = 9423353829) message] The system which generated this result transmitted reference range : 0.0 - 10.0 /100 WBCs. The refer ence range was not u sed to interpret th is result as normal/abnormal . NRBC x10^3 (test code <0.01 See_Comment [Auto mated = 4275897983) message] The s ystem which generated this result transmitted reference range : 10*3/?L. The reference range was not used to interpret this result as normal/abnormal . GRAN MAT (NEUT) % 70.2 % (test code = 770-8) IMM GRAN % (test code 0.30 % = 1542637693) LYMPH % (test code = 18.8 % 736-9) MONO % (test code = 5.0 % 5905-5) EOS % (test code = 5.2 % 713-8) BASO % (test code = 0.5 % 706-2) GRAN MAT x10^3(ANC) 6.05 10*3/uL 1.99-6.95 (test code = 2332555613) IMM GRAN x10^3 (test 0.03 10*3/uL 0.00-0.06 code = 3076018795) LYMPH x10^3 (test code 1.62 10*3/uL 1.09-3.23 = 731-0) MONO x10^3 (test code 0.43 10*3/uL 0.36-1.02 = 742-7) EOS x10^3 (test code = 0.45 10*3/uL 0.06-0.53 711-2) BASO x10^3 (test code 0.04 10*3/uL 0.01-0.09 = 704-7) Lab Interpretation Abnormal (test code = 28420-2) [facility]2020-12-12 03:42:00 Test Item Value Reference Range Interpretation Comments POCT GLU (test code = 196 mg/dL 70-110 H Notifi ed Provider 4799563465) Lab Interpretation (test Abnormal code = 28810-5) [facility] 02:24:00 Test Item Value Reference Range Interpretation Comments FOLATE SER (test code = 1139961636) 5.8 ng/mL 3.0-20.0 Lab Interpretation (test code = Normal 58009-8) [facility] HospitalVITAMIN B12, [id number] 00:55:00 Test Item Value Reference Range Interpretation Comments VIT B12 (test code = 844 pg/mL 240-930 6731024067) JAMES (test code = JAMES) Biotin has been reported to cause a positive bias, interpret results relative to patient's use of biotin. Lab Interpretation (test Normal code = 14632-8) [facility]2020-12-12 00:14:00 Test Item Value Reference Range Interpretation Comments POCT GLU (test code = 3519747071) 164 mg/dL 70-110 H Lab Interpretation (test code = Abnormal 84429-3) [facility] HospitalCREATINE [id number] 23:42:00 Test Item Value Reference Range Interpretation Comments CK (test code = 6976965396) <20 33-194 L Lab Interpretation (test code = Abnormal 07868-9) [facility] HospitalTHYROID STIMULATING [id number] 23:17:00 Test Item Value Reference Range Interpretation Comments TSH (test code = See_Comment Biotin has been 3324197538) reported to cau se a negative bias, interpret resul ts relative to pat sanju's use of biotin. [Automated mess age] The system [employer] generated this result transmitted ref erence range: 0.45 - 4 .70 mIU/L. The refe rence range was not u sed to interpret this result as normal/abnor mal. Lab Interpretation (test Normal code = 54482-5) [facility]XR HIPS 3 VW [id number] 21:41:53No appreciable fracture lines. RL: 6200 ICAL [...] No osseous erosions.IMPRESSIONNo appreciable fracture lines.RL: 6[address] [facility] HospitalPROCALCITONIN2021-03-01 20:00:00 Test Item Value Reference Range Interpretation Comments Procalcitonin (test 0.13 ng/mL <0.07 H code = 7937079743) JAMES (test code = JAMES) INTERPRETATION OF [...] biotics/default.asp Lab Interpretation Abnormal (test code = 06632-0) [facility]2020-12-11 19:07:00 Test Item Value Reference Range Interpretation Comments POCT GLU (test code = 8209578944) 274 mg/dL 70-110 H Lab Interpretation (test code = Abnormal 43617-0) [facility]UM2021-[facility]-01 18:31:00 Test Item Value Reference Range Interpretation Comments MAGNESIUM (test code = 9336810993) 1.9 mg/dL 1.7-2.4 Lab Interpretation (test code = Normal 62209-5) [facility] HospitalFERRITIN [id number] 18:31:00 Test Item Value Reference Range Interpretation Comments FERRITIN (test code = 178.0 ng/mL 18.0-464.0 0455699274) JAMES (test code = JAMES) Biotin has been reported to cause a negative bias, interpret results relative to patient's use of biotin. Lab Interpretation (test Normal code = 49777-3) [facility] HEAD WO [id number] 14:36:47 No acute intracranial abnormality. Dilated ventricles [...] this study and agree with the abovereport.[facility]URINALYSIS2021-03-01 14:28:00 Test Item Value Reference Range Interpretation Comments APPEARANCE (test code = Clear Clear 1555494474) COLOR (test code = Yellow Yellow 2158601810) PH (test code = 4.8-8.0 6048885433) SP GRAVITY (test code = 1.003-1.030 1652578488) GLU U QUAL (test code = 500 mg/dL Normal A 3700356317) BLOOD (test code = Negative Negative 0717895576) KETONES (test code = 5 mg/dL Negative A 2508298730) PROTEIN (test code = Negative Negative 2887-8) UROBILIN (test code = Normal Normal 8516860668) BILIRUBIN (test code = Negative Negative 2334930491) NITRITE (test code = Negative Negative 2990145420) LEUK YRAN (test code = Negative Negative 1289871177) RBC/HPF (test code = See_Comment [Autom ated message] 8738408451) The system [employer] generated this result transmit ronan reference range : 0 - 3 HPF. The refe rence range was not u sed to interpret th is result as normal/abnormal . WBC/HPF (test code = See_Comment [Autom ated message] 6323200697) The system WiFast generated this result transmit ronan reference range : 0 - 5 HPF. The refe rence range was not u sed to interpret th is result as normal/abnormal . BACTERIA (test code = Negative Negative 8134950703) MUCOUS (test code = Slight Negative LPF A 1220269591) SQ EPITH (test code = HPF 8532405527) Lab Interpretation (test Abnormal code = 81462-7) [facility]ID [facility]2020-12-11 13:10:00 Test Item Value Reference Range Interpretation Comments SARS-CoV-2 Rapid ID NOW Not Detected Not Detected (test code = 61134-1) JAMES (test code = JAMES) ID NOW COVID-19 Assay is an isothermal nucleic acid amplification test intended for the qualitative detection of nucleic acid from SARS-CoV-2 viral RNA in nasopharyngeal (PUBLIC WEIGHER) specimens. It is used under Emergency Use [...] indicated. Lab Interpretation Normal (test code = 81310-6) [facility] (08345)2020-12-11 12:29:00 Test Item Value Reference Range Interpretation Comments NA (test code = 136 mmol/L 135-145 3389775301) K (test code = 3.5 mmol/L 3.5-5.0 9106077494) CL (test code = 95 mmol/L 98-108 L 1340595858) CO2 TOTAL (test code = 35 mmol/L 23-31 H 2536808864) AGAP (test code = 2-16 8865120385) BUN (test code = 9 mg/dL 7-23 1626700837) GLUCOSE (test code = 329 mg/dL 70-110 H 9033831761) CREATININE (test code = 0.72 mg/dL 0.60-1.25 6785508187) TOTAL BILI (test code = 0.6 mg/dL 0.1-1.7 7201120708) CALCIUM (test code = 9.0 mg/dL 8.6-10.6 3095252303) T PROTEIN (test code = 6.8 g/dL 6.3-8.2 8888570447) ALBUMIN (test code = 3.8 g/dL 3.5-5.0 6172690242) ALK PHOS (test code = 288 U/L 34-122 H 8528420361) ALTv (test code = 46 U/L 5-50 1742-6) AST(SGOT) (test code = 38 U/L 13-40 8777072308) eGFR Calculation mL/min/1.73m2 (Non-) (test code = 3727813330) eGFR Calculation mL/min/1.73m2 () (test code = 9527553374) JAMES (test code = JAMES) Association of [...] tests). Lab Interpretation Abnormal (test code = 38863-1) [facility] Whole [id number] 12:23:00 Test Item Value Reference Range Interpretation Comments LACTIC ACID (test code = 2.09 mmol/L 0.50-2.20 4449215204) Lab Interpretation (test code = Normal 22175-6) [facility] WITH [id number] 12:17:00 Test Item Value Reference Range Interpretation Comments WBC (test code = See_Comment H [Automated 1442-2) message] The sy stem which generated this result transmitted reference range : 4.20 - 10.70 10*3/?L. The reference range was not used to interpret this result as normal/abnormal . RBC (test code = See_Comment [Automated 658-8) message] The sy stem which generated this [...] RDW-SD (test code = 44.9 fL 38.5-51.6 79388-1) RDW-CV (test code = 15.9 % 12.1-15.4 H 788-0) PLT (test code = See_Comment H [Automated 777-3) message] The sy stem which generated this result transmitted reference range : 150 - 328 10*3/ ?L. The reference r torito was not used to interpret this result as normal/abnormal . MPV (test code = 8.3 fL 9.8-13.0 L 83664-7) NRBC/100 WBC (test See_Comment [Automat ed code = 8216784410) message] The system which generated this result transmitted reference range : 0.0 - 10.0 /100 WBCs. The refer ence range was not u sed to interpret th is result as normal/abnormal . NRBC x10^3 (test code <0.01 See_Comment [Auto mated = 9779752935) message] The s ystem which generated this result transmitted reference range : 10*3/?L. The reference range was not used to interpret this result as normal/abnormal . GRAN MAT (NEUT) % 77.9 % (test code = 770-8) IMM GRAN % (test code 0.50 % = 5845096121) LYMPH % (test code = 12.2 % 736-9) MONO % (test code = 5.2 % 5905-5) EOS % (test code = 3.7 % 713-8) BASO % (test code = 0.5 % 706-2) GRAN MAT x10^3(ANC) 9.57 10*3/uL 1.99-6.95 H (test code = 7756347870) IMM GRAN x10^3 (test 0.06 10*3/uL 0.00-0.06 code = 8732482352) LYMPH x10^3 (test code 1.50 10*3/uL 1.09-3.23 = 731-0) MONO x10^3 (test code 0.64 10*3/uL 0.36-1.02 = 742-7) EOS x10^3 (test code = 0.46 10*3/uL 0.06-0.53 711-2) BASO x10^3 (test code 0.06 10*3/uL 0.01-0.09 = 704-7) Lab Interpretation Abnormal (test code = 41632-2) [facility] [id number] 18:43:00COVID DMT InterpretationInterpretation/Recommendations: Molecular NAAT Test Results [...] a nasopharyngeal sample, there is approximately a cac-fp-rohpj chance that the patient was infected and [...] Identification of SARS-CoV-2 RNA:SARS-CoV-2 PCR assays including [place] Aptima, [place] Fusion, Barrett RealTime, and GOkeyert Xpress. SARS-CoV-2 Rapid ID NOW by the ID NOW assay. ? B. Tests for the Identification of SARS-CoV-2 Antibodies: Chemiluminescent immunoassays including Access SARS-CoV-2 IgM (DXI 600), VITROS Jwia-BAIE-QtX-2 IgG (Vitros 5600 and Vitros 3600), and Barrett SARS-CoV-2 IgG ([employer] System). These interpretation comments assume that only the above testing was utilized and that the approved acceptable specimen type(s) were used for a given test. These interpretations are autopopulated into weeSPIN based on computerized algorithms matching an interpretation code number to the patient's set of test results. While a clinical pathologist evaluates the combinations for clinical accuracy, clinical correlation is recommended as it may not take into account very remote prior testing. Furthermore, it does not consider testing a patient may have had outside of the [facility] system. Additionally, it should be noted that the computerized algorithm treats the results for PCR testing and Rapid ID NOW testing (also PCR) synonymously, and thus, refers to both testing methodologies as PCR tests. Given that the sensitivity of [facility]'s Rapid ID NOW testing platform is analogous [...] pathogen panel may be beneficialin this setting. [facility] LABORATORY SERVICESCOVID KscuwixPZOA-BaT-8 Rapid ID NOW (no units) ? ? Date ? Value ? 08/21/2020 ? Not Detected ? [facility] LABORATORY SERVICESUnSt. [facility] HospitalPOCT GLUCOSE (AUTOMATED)2020-08-23 18:25:00 Test Item Value Reference Range Interpretation Comments POCT GLU (test code = 9800731716) 297 mg/dL 70-110 H Lab Interpretation (test code = Abnormal 76511-9) [facility]2020-08-23 14:25:00 Test Item Value Reference Range Interpretation Comments POCT GLU (test code = 4032850158) 181 mg/dL 70-110 H Lab Interpretation (test code = Abnormal 92012-3) [facility] (NA, K, CL, CO2, GLUCOSE, BUN, CREATININE, CA)2020-08-23 11:45:00 Test Item Value Reference Range Interpretation Comments NA (test code = 132 mmol/L 135-145 L 5544277542) K (test code = 4.0 mmol/L 3.5-5 7358929131) CL (test code = 96 mmol/L 98-108 L 4821579549) CO2 TOTAL (test code = 33 mmol/L 23-31 H 6817381872) AGAP (test code = 2-16 3808782316) BUN (test code = 9 mg/dL 7-23 2512190606) GLUCOSE (test code = 176 mg/dL 70-110 H 7104897499) CREATININE (test code = 0.66 mg/dL 0.6-1.25 0255700554) CALCIUM (test code = 8.5 mg/dL 8.6-10.6 L 1066709552) eGFR Calculation mL/min/1.73m2 (Non-) (test code = 3991008066) eGFR Calculation mL/min/1.73m2 () (test code = 1249560481) JAMES (test code = JAMES) Association of [...] tests). Lab Interpretation Abnormal (test code = 47854-8) [facility] HospitalMagnesium [id number] 11:45:00 Test Item Value Reference Range Interpretation Comments MAGNESIUM (test code = 7127484669) 2.0 mg/dL 1.7-2.4 Lab Interpretation (test code = Normal 16529-3) [facility] with Tbebkhjqdmpk5020-22-05 11:38:00 Test Item Value Reference Range Interpretation Comments WBC (test code = See_Comment [Automated 5690-2) message] The sy stem which generated this result transmitted reference range : 4.20 - 10.70 10*3/?L. The reference range was not used to interpret this result as normal/abnormal . RBC (test code = See_Comment [Automated 489-8) message] The sy stem which generated this [...] RDW-SD (test code = 41.8 fL 38.5-51.6 30146-9) RDW-CV (test code = 14.3 % 12.1-15.4 788-0) PLT (test code = See_Comment H [Automated 777-3) message] The sy stem which generated this result transmitted reference range : 150 - 328 10*3/ ?L. The reference r torito was not used to interpret this result as normal/abnormal . MPV (test code = 8.0 fL 9.8-13 L 65613-6) NRBC/100 WBC (test See_Comment [Automat ed code = 5524852830) message] The system which generated this result transmitted reference range : 0.0 - 10.0 /100 WBCs. The refer ence range was not u sed to interpret th is result as normal/abnormal . NRBC x10^3 (test code <0.01 See_Comment [Auto mated = 8162122530) message] The s ystem which generated this result transmitted reference range : 10*3/?L. The reference range was not used to interpret this result as normal/abnormal . GRAN MAT (NEUT) % 61.5 % (test code = 770-8) IMM GRAN % (test code 2.00 % = 5564705958) LYMPH % (test code = 25.5 % 736-9) MONO % (test code = 6.3 % 5905-5) EOS % (test code = 3.7 % 713-8) BASO % (test code = 1.0 % 706-2) GRAN MAT x10^3(ANC) 5.29 10*3/uL 1.99-6.95 (test code = 0749443414) IMM GRAN x10^3 (test 0.17 10*3/uL 0-0.06 H code = 4392866170) LYMPH x10^3 (test code 2.19 10*3/uL 1.09-3.23 = 731-0) MONO x10^3 (test code 0.54 10*3/uL 0.36-1.02 = 742-7) EOS x10^3 (test code = 0.32 10*3/uL 0.06-0.53 711-2) BASO x10^3 (test code 0.09 10*3/uL 0.01-0.09 = 704-7) Lab Interpretation Abnormal (test code = 36880-9) [facility] GLUCOSE (AUTOMATED)2020-08-23 10:22:00 Test Item Value Reference Range Interpretation Comments POCT GLU (test code = 7315634397) 164 mg/dL 70-110 H Lab Interpretation (test code = Abnormal 98983-8) [facility] GLUCOSE (AUTOMATED)2020-08-23 05:56:00 Test Item Value Reference Range Interpretation Comments POCT GLU (test code = 9474580142) 242 mg/dL 70-110 H Lab Interpretation (test code = Abnormal 99587-8) [facility] GLUCOSE (AUTOMATED)2020-08-23 03:02:00 Test Item Value Reference Range Interpretation Comments POCT GLU (test code = 2903513872) 210 mg/dL 70-110 H Lab Interpretation (test code = Abnormal 76484-6) [facility] GLUCOSE (AUTOMATED)2020-08-22 23:40:00 Test Item Value Reference Range Interpretation Comments POCT GLU (test code = 2356882770) 267 mg/dL 70-110 H Lab Interpretation (test code = Abnormal 48045-6) [facility] GLUCOSE (AUTOMATED)2020-08-22 19:08:00 Test Item Value Reference Range Interpretation Comments POCT GLU (test code = 7835306194) 191 mg/dL 70-110 H Lab Interpretation (test code = Abnormal 55776-0) [facility] GLUCOSE (AUTOMATED)2020-08-22 13:50:00 Test Item Value Reference Range Interpretation Comments POCT GLU (test code = 4393677486) 174 mg/dL 70-110 H Lab Interpretation (test code = Abnormal 54387-4) [facility] [id number] 12:59:00 Test Item Value Reference Range Interpretation Comments URINE CULTURE (test No aerobic growth (< code = 630-4) 1000 CFU/mL) [facility] with Cwlhekvdiuwh7843-37-93 11:28:00 Test Item Value Reference Range Interpretation [...] RDW-SD (test code = 42.5 fL 38.5-51.6 72756-6) RDW-CV (test code = 14.5 % 12.1-15.4 788-0) PLT (test code = See_Comment H [Automated 777-3) message] The sy stem which generated this result transmitted reference range : 150 - 328 10*3/ ?L. The reference r torito was not used to interpret this result as normal/abnormal . MPV (test code = 8.0 fL 9.8-13 L 92286-2) NRBC/100 WBC (test See_Comment [Automat ed code = 7231189929) message] The system which generated this result transmitted reference range : 0.0 - 10.0 /100 WBCs. The refer ence range was not u sed to interpret th is result as normal/abnormal . NRBC x10^3 (test code <0.01 See_Comment [Auto mated = 4260886025) message] The s ystem which generated this result transmitted reference range : 10*3/?L. The reference range was not used to interpret this result as normal/abnormal . GRAN MAT (NEUT) % 69.1 % (test code = 770-8) IMM GRAN % (test code 2.20 % = 6207244051) LYMPH % (test code = 20.9 % 736-9) MONO % (test code = 5.8 % 5905-5) EOS % (test code = 1.0 % 713-8) BASO % (test code = 1.0 % 706-2) GRAN MAT x10^3(ANC) 6.51 10*3/uL 1.99-6.95 (test code = 2555828322) IMM GRAN x10^3 (test 0.21 10*3/uL 0-0.06 H code = 8325868218) LYMPH x10^3 (test code 1.97 10*3/uL 1.09-3.23 = 731-0) MONO x10^3 (test code 0.55 10*3/uL 0.36-1.02 = 742-7) EOS x10^3 (test code = 0.09 10*3/uL 0.06-0.53 711-2) BASO x10^3 (test code 0.09 10*3/uL 0.01-0.09 = 704-7) BASO STIPPLING (test Present A code = 703-9) BANDS (test code = Increased A 3653000299) TOXIC CHANGES (test Present A code = 803-7) Lab Interpretation Abnormal (test code = 36793-9) [facility] Metabolic Panel (NA, K, CL, CO2, GLUCOSE, BUN, CREATININE, CA)2020-08-22 11:12:00 Test Item Value Reference Range Interpretation Comments NA (test code = 135 mmol/L 135-145 7856319489) K (test code = 3.6 mmol/L 3.5-5 3121029176) CL (test code = 99 mmol/L 98-108 1730818015) CO2 TOTAL (test code = 31 mmol/L 23-31 3730960889) AGAP (test code = 2-16 9761906337) BUN (test code = 9 mg/dL 7-23 6605396683) GLUCOSE (test code = 198 mg/dL 70-110 H 8023338695) CREATININE (test code = 0.72 mg/dL 0.6-1.25 7573431067) CALCIUM (test code = 8.3 mg/dL 8.6-10.6 L 1783046827) eGFR Calculation mL/min/1.73m2 (Non-) (test code = 8150928743) eGFR Calculation mL/min/1.73m2 () (test code = 3347577207) JAMES (test code = JAMES) Association of [...] tests). Lab Interpretation Abnormal (test code = 46715-6) [facility] HospitalMagnesium [id number] 11:12:00 Test Item Value Reference Range Interpretation Comments MAGNESIUM (test code = 7879996862) 2.0 mg/dL 1.7-2.4 Lab Interpretation (test code = Normal 91851-9) [facility] Hospital[facility]id Panel (Total Cholesterol, Triglycerides, HDL) - Idrldes6079-83-83 11:12:00 Test Item Value Reference Range Interpretation Comments CHOL (test code = 155 mg/dL 120-200 9790945807) HDL (test code = 42 mg/dL >40 6680350445) HDLC RATIO (test code = See_Comment [Au tomated message] 7475144286) The system WiFast generated this result transmit ronan reference range : <=5.0. The refe rence range was not u sed to interpret th is result as normal/abnormal . TRIG (test code = 186 mg/dL 30-170 H 8996335715) LDL CHOL (test code = 76 mg/dL See_Comment [Auto mated message] 56584-8) The system WiFast generated this result transmit ronan reference range : <=160. The refe rence range was not u sed to interpret th is result as normal/abnormal . VLDL (test code = 37 mg/dL 5-60 6160750164) Lab Interpretation (test Abnormal code = 44477-7) [facility]AT[facility] (38542[facility] (ALB,T.PRO,BILI T,BU/BC,ALT,AST,ALK PHOS)2020-08-22 11:12:00 Test Item Value Reference Range Interpretation Comments TOTAL BILI (test code = 8627530866) 0.6 mg/dL 0.1-1.1 BILI UNCON (test code = 1691665535) 0.2 mg/dL 0.1-1.1 BILI CONJ (test code = 9072004721) 0.0 mg/dL 0-0.3 T PROTEIN (test code = 8974303932) 6.0 g/dL 6.3-8.2 L ALBUMIN (test code = 8075533784) 2.8 g/dL 3.5-5 L ALK PHOS (test code = 0976487066) 222 U/L 34-122 H ALTv (test code = 1742-6) 27 U/L 5-50 AST(SGOT) (test code = 8468471793) 30 U/L 13-40 Lab Interpretation (test code = Abnormal 52697-6) [facility] GLUCOSE (AUTOMATED)2020-08-22 10:11:00 Test Item Value Reference Range Interpretation Comments POCT GLU (test code = 6970259334) 196 mg/dL 70-110 H Lab Interpretation (test code = Abnormal 07963-6) [facility] GLUCOSE (AUTOMATED)2020-08-22 07:15:00 Test Item Value Reference Range Interpretation Comments POCT GLU (test code = 3938999340) 183 mg/dL 70-110 H Lab Interpretation (test code = Abnormal 52444-6) [facility] GLUCOSE (AUTOMATED)2020-08-22 02:30:00 Test Item Value Reference Range Interpretation Comments POCT GLU (test code = 0472682741) 295 mg/dL 70-110 H Lab Interpretation (test code = Abnormal 81605-2) [facility] GLUCOSE (AUTOMATED)2020-08-21 23:46:00 Test Item Value Reference Range Interpretation Comments POCT GLU (test code = 1444832510) 258 mg/dL 70-110 H Lab Interpretation (test code = Abnormal 68851-3) [facility]C-REACTIVE [id number] 18:50:00 Test Item Value Reference Range Interpretation Comments CRP (test code = 6369792036) 15.5 mg/dL <0.8 H Lab Interpretation (test code = Abnormal 26859-5) [facility] GLUCOSE (AUTOMATED)2020-08-21 18:21:00 Test Item Value Reference Range Interpretation Comments POCT GLU (test code = 0081645239) 297 mg/dL 70-110 H Lab Interpretation (test code = Abnormal 67917-2) [facility] HospitalETHANOL2020-11-09 16:24:00 Test Item Value Reference Range Interpretation Comments ALCOHOL (test code = <10 mg/dL 2885452466) JAMES (test code = Toxic Greater than or JAMES) equal to 80 mg/dL. NOTE: Whole blood values are approximately 10% to 15% lower than serum and plasma. [facility] [place], [place]/[facility] ONLY - URINE DRUG (IMMUNOASSAY) - 4 ER [id number] 15:36:00 Test Item Value Reference Range Interpretation Comments AMPHET (test code = Negative Negative 5179993071) Cocaine Metabolite (test Negative Negative code = 8860866155) OPIATES (test code = Presumptive Positive Negative A 1262814407) THC (test code = Negative Negative 2747519343) JAMES (test code = JAMES) Urine Drug Cutoff Ranges Amphetamine: ? 1,000 ng/mLCocaine: ? 150 ng/mLOpiates: ? 300 ng/mLCannabinoids: ?50 ng/mL The results are to be used only for medical (i.e., treatment) purposes. Unconfirmed screening results must not be used for non-medical purposes (e.g., employment testing, legal testing). Lab Interpretation (test Abnormal code = 82459-6) [facility] [place] [place] ONLY - SYPHILIS [id number] 15:04:00 Test Item Value Reference Range Interpretation Comments Syphilis IgG/IgM (test Non-reactive Non-reactive code = 22358-7) JAMES (test code = JAMES) Non-reactive - No serologic evidence of T. pallidum infection. Cannot exclude incubating or early syphilis. Submit a second specimen in 2-4 weeks if syphilis is clinically suspected. Equivocal - Further testing to follow. Reactive - Further testing to follow. Lab Interpretation (test Normal code = 96798-9) [facility] HospitalUrinalysis2020-11-09 14:52:00 Test Item Value Reference Range Interpretation Comments APPEARANCE (test code = Clear Clear 4323180061) COLOR (test code = Yellow Yellow 4169330058) PH (test code = 4.8-8.0 4080664461) SP GRAVITY (test code = 1.003-1.030 2538274143) GLU U QUAL (test code = 500 mg/dL Normal A 1668546493) BLOOD (test code = Negative Negative 0191297023) KETONES (test code = 20 mg/dL Negative A 3579055376) PROTEIN (test code = Negative Negative 2887-8) UROBILIN (test code = Normal Normal 8659936485) BILIRUBIN (test code = Negative Negative 8000962876) NITRITE (test code = Negative Negative 9705385310) LEUK RYAN (test code = Negative Negative 7431805927) RBC/HPF (test code = <1 See_Comment [Autom ated message] 0934460356) The system WiFast generated this result transmit ronan reference range : 0 - 3 HPF. The refe rence range was not u sed to interpret th is result as normal/abnormal . WBC/HPF (test code = See_Comment [Autom ated message] 4834212048) The system WiFast generated this result transmit ronan reference range : 0 - 5 HPF. The refe rence range was not u sed to interpret th is result as normal/abnormal . BACTERIA (test code = Negative Negative 4493041362) MUCOUS (test code = Slight Negative LPF A 7773721734) Lab Interpretation (test Abnormal code = 91488-9) [facility] HospitalACTIVATED PARTIAL THRMPLAS [id number] 13:45:00 Test Item Value Reference Range Interpretation Comments APTT Patient (test code = See_Comment [ Automated message] 3173-2) The system whic h generated this result transmitted ref erence range: 26 - 36 Seconds. The re ference range was not u sed to interpret this result as normal/abnor mal. Lab Interpretation (test Normal code = 66628-2) [facility]2020-08-21 13:45:00 Test Item Value Reference Range Interpretation Comments POCT GLU (test code = 1117506095) 246 mg/dL 70-110 H Lab Interpretation (test code = Abnormal 66145-2) [facility] HospitalHIV 1/2 AG-AB WITH [id number] 12:32:00 Test Item Value Reference Range Interpretation Comments HIV Negative Negative Semi-quantitative (test code = 82344-8) JAMES (test code = Non-reactive for HIV-1 JAMES) antigen and HIV-1/HIV-2 antibodies. ?No laboratory evidence of HIV infection. ?Repeat in 2-4 weeks if acute HIV infection is suspected. [facility] HospitalCBC WITH [id number] 12:18:00 Test Item Value Reference Range Interpretation Comments WBC (test code = See_Comment [Automated 6190-2) message] The sy stem which [...] RDW-SD (test code = 44.4 fL 38.5-51.6 27923-7) RDW-CV (test code = 14.5 % 12.1-15.4 788-0) PLT (test code = See_Comment H [Automated 777-3) message] The sy stem which generated this result transmitted reference range : 150 - 328 10*3/ ?L. The reference r torito was not used to interpret this result as normal/abnormal . MPV (test code = 8.5 fL 9.8-13 L 86813-1) NRBC/100 WBC (test See_Comment [Automat ed code = 8607053623) message] The system which generated this result transmitted reference range : 0.0 - 10.0 /100 WBCs. The refer ence range was not u sed to interpret th is result as normal/abnormal . NRBC x10^3 (test code <0.01 See_Comment [Auto mated = 7633032561) message] The s ystem which generated this result transmitted reference range : 10*3/?L. The reference range was not used to interpret this result as normal/abnormal . GRAN MAT (NEUT) % 90.4 % (test code = 770-8) IMM GRAN % (test code 1.30 % = 9312467993) LYMPH % (test code = 7.1 % 736-9) MONO % (test code = 0.5 % 5905-5) EOS % (test code = 0.1 % 713-8) BASO % (test code = 0.6 % 706-2) GRAN MAT x10^3(ANC) 7.74 10*3/uL 1.99-6.95 H (test code = 5257615160) IMM GRAN x10^3 (test 0.11 10*3/uL 0-0.06 H code = 0715539128) LYMPH x10^3 (test code 0.61 10*3/uL 1.09-3.23 L = 731-0) MONO x10^3 (test code 0.04 10*3/uL 0.36-1.02 L = 742-7) EOS x10^3 (test code = <0.03 0.06-0.53 L 711-2) BASO x10^3 (test code 0.05 10*3/uL 0.01-0.09 = 704-7) POLYCHROMASIA (test 2+ See_Comment [Automa ronan code = 77303-1) message] The system which generated this result transmitted reference range : 2+. The referen ce range was not u sed to interpret th is result as normal/abnormal . BANDS (test code = Increased A 2444884895) Lab Interpretation Abnormal (test code = 07343-6) [facility] HospitalPROCALCITONIN2020-11-09 11:48:00 Test Item Value Reference Range Interpretation Comments Procalcitonin (test 0.36 ng/mL <0.07 H code = 9879932440) JAMES (test code = JAMES) INTERPRETATION OF [...] biotics/default.asp Lab Interpretation Abnormal (test code = 73661-4) [facility] HospitalLACAATE [id number] 10:53:00 Test Item Value Reference Range Interpretation Comments LDH (test code = 9758465885) 351 U/L 300-600 Lab Interpretation (test code = Normal 08684-2) [facility] HospitalSEDIMENTATION [id number] 10:07:00 Test Item Value Reference Range Interpretation Comments ESR (test code = See_Comment H [Automated message] 1042435328) The system [employer] generated this result transmitted ref erence range: 0 - 10 m m/HR. The reference r torito was not used to interpret this result as normal/abnor mal. Lab Interpretation (test Abnormal code = 75568-9) [facility]2020-08-21 09:45:00 Test Item Value Reference Range Interpretation Comments POCT GLU (test code = 2090762416) 287 mg/dL 70-110 H Lab Interpretation (test code = Abnormal 52259-0) [facility] HospitalGlycosylated Hemoglobin (A1C)2020-08-21 09:29:00 Test Item Value Reference Range Interpretation Comments HGB A1C (test code = 4548-4) 9.8 % 4-6 H Lab Interpretation (test code = Abnormal 68139-0) [facility] HospitalCOVID-19 (ID NOW RAPID TESTING)2020-08-21 09:13:00 Test Item Value Reference Range Interpretation Comments SARS-CoV-2 Rapid ID NOW Not Detected Not Detected (test code = 12973-2) JAMES (test code = JAMES) ID NOW COVID-19 Assay is an isothermal nucleic acid amplification test intended for the qualitative detection of nucleic acid from SARS-CoV-2 viral RNA in nasopharyngeal (PUBLIC WEIGHER) specimens. It is used under Emergency Use [...] indicated. Lab Interpretation Normal (test code = 85490-8) [facility] [id number] 08:59:00 Test Item Value Reference Range Interpretation Comments PROTIME PATIENT (test See_Comment H [Auto mated message] code = 5964-2) The system [employer] generated this result transmitted ref erence range: 10.1 - 1 2.6 Seconds. The reference range was not used to int erpret this result as normal/abnormal . INR (test code = 6301-6) Nor mal INR <1.1; Warfarin Therap eutic range 2.0 to 3. 0 or 2.5 to 3.5, dep ending upon the indica tions. Lab Interpretation (test Abnormal code = 05066-2) [facility]00 Test Item Value Reference Range Interpretation Comments APTT Patient (test code = See_Comment [ Automated message] 3173-2) The system [employer] generated this result transmitted ref erence range: 26 - 36 Seconds. The re ference range was not u sed to interpret this result as normal/abnor mal. Lab Interpretation (test Normal code = 23175-7) [facility] (NA, K, CL, CO2, GLUCOSE, BUN, CREATININE, CA)2020-08-21 08:52:00 Test Item Value Reference Range Interpretation Comments NA (test code = 136 mmol/L 135-145 3857200281) K (test code = 4.3 mmol/L 3.5-5 5853688856) CL (test code = 104 mmol/L 98-108 5012214073) CO2 TOTAL (test code = 24 mmol/L 23-31 5790804983) AGAP (test code = 2-16 1433155556) BUN (test code = 8 mg/dL 7-23 1602759365) GLUCOSE (test code = 308 mg/dL 70-110 H 4248932900) CREATININE (test code = 0.72 mg/dL 0.6-1.25 8618255006) CALCIUM (test code = 7.8 mg/dL 8.6-10.6 L 4213491733) eGFR Calculation mL/min/1.73m2 (Non-) (test code = 2424387794) eGFR Calculation mL/min/1.73m2 () (test code = 3547519307) JAMES (test code = JAMES) Association of [...] tests). Lab Interpretation Abnormal (test code = 20661-8) [facility]99016[facility] (ALB,T.PRO,BILI T,BU/BC,ALT,AST,ALK PHOS)2020-08-21 08:52:00 Test Item Value Reference Range Interpretation Comments TOTAL BILI (test code = 4561335005) 0.8 mg/dL 0.1-1.1 BILI UNCON (test code = 4358452396) 0.3 mg/dL 0.1-1.1 BILI CONJ (test code = 0471199152) 0.0 mg/dL 0-0.3 T PROTEIN (test code = 8355006362) 5.7 g/dL 6.3-8.2 L ALBUMIN (test code = 2881938858) 2.7 g/dL 3.5-5 L ALK PHOS (test code = 6196834127) 245 U/L 34-122 H ALTv (test code = 1742-6) 37 U/L 5-50 AST(SGOT) (test code = 5871144488) 43 U/L 13-40 H Lab Interpretation (test code = Abnormal 54293-2) [facility]
[2023-04-26] MEDS ORDERED: KETOROLAC 30 MG/ML INJ ONE (19:58)
[2023-04-26] MEDS ORDERED: CYCLOBENZAPRINE 10 MG TAB ONE (19:58)
--- NOTE | 2023-04-26 20:32 | ER ---
Nurse's Notes [facility] Name: Kiel Ngo Age: 72 yrs Sex: Male : 1950 Arrival Date: 04/26/2023 Time: 18:38 Bed 17 Private MD: Diagnosis: chronic back and hip pain Presentation: 04/26 18:43 Chief complaint: Patient states: he is experiencing chronic pain in his lower back that ap3 extends down into his right leg. patient reports his pain is a 10/10 on the pain scale. Coronavirus screen: At this time, the client does not indicate any symptoms associated with coronavirus-19. Ebola Screen: No symptoms or risks identified at this time. Initial Sepsis Screen: Does the patient meet any 2 criteria? No. Patient's initial sepsis screen is negative. Does the patient have a suspected source of infection? No. Patient's initial sepsis screen is negative. Risk Assessment: Do you want to hurt yourself or someone else? Patient reports no desire to harm self or others. Onset of symptoms is unknown. 18:43 Method Of Arrival: EMS: [facility] ap3 18:45 Acuity: JOZEF 4 ap3 Triage Assessment: 18:45 General: Appears in no apparent distress. Behavior is calm, cooperative. Pain: ap3 Complains of pain in back and right leg Pain currently is 10 out of 10 on a pain scale. Neuro: Level of Consciousness is awake, alert, obeys commands, Oriented to person, place, time. Cardiovascular: Patient's skin is warm and dry. Respiratory: Airway is patent Respiratory effort is even, unlabored, Respiratory pattern is regular, symmetrical. Musculoskeletal: Reports pain in back and right leg. Historical: - Allergies: 18:44 Demerol; ap3 18:44 metformin; ap3 18:44 Morphine; ap3 - PMHx: 18:44 Atrial fibrillation; chronic back pain; Chronic right leg pain; neuropathy; ap3 - PSHx: 18:44 back sx; PANCREAS SX; R. Ankle SX; ap3 - Immunization history:: Client reports receiving the 2nd dose of the Covid vaccine. - Social history:: Smoking status: Patient denies any tobacco usage or history of. Screenin:45 [facility] ED Fall Risk Assessment (Adult). Abuse screen: Denies threats or abuse. ap3 Nutritional screening: No deficits noted. Tuberculosis screening: No symptoms or risk factors identified. Assessment: 19:45 General: Appears comfortable, Behavior is calm, cooperative. Pain: Complains of pain in ha1 right leg and right hip Pain does not radiate. Pain currently is 7 out of 10 on a pain scale. Quality of pain is described as throbbing. Neuro: Level of Consciousness is awake, alert, obeys commands, Oriented to person, place, time, situation. Cardiovascular: Patient's skin is warm and dry. Respiratory: Airway is patent Respiratory effort is even, unlabored, Respiratory pattern is regular, symmetrical. GI: No signs and/or symptoms were reported involving the gastrointestinal system. Abdomen is round non-distended. Musculoskeletal: 20:45 Reassessment: Patient and/or family updated on plan of care and expected duration. Pain ha1 level reassessed. Patient is alert, oriented x 3, equal unlabored respirations, skin warm/dry/pink. Patient states feeling better. Patient states symptoms have improved. 21:25 Reassessment: awaiting on ambulance. ha1 21:39 Reassessment: leaving with [facility]. ha1 Vital Signs: 18:43 BP 94 / 57; Pulse 60; Resp 16; Temp 98.1; Pulse Ox 97% on R/A; Weight 81.65 kg; Height ap3 5 ft. 11 in. ; Pain 10/10; 19:45 BP 98 / 55; Pulse 54; Resp 15 S; Pulse Ox 97% ; ha1 20:15 BP 123 / 67; Pulse 60; Resp 16 S; Pulse Ox 97% ; ha1 21:10 BP 102 / 59; Pulse 63; Resp 18 S; Pulse Ox 100% on R/A; ha1 18:43 Body Mass Index 25.10 (81.65 kg, 180.34 cm) ap3 18:43 Pain Scale: Adult ap3 ED Course: 18:43 Patient arrived in ED. ap3 18:45 Triage completed. ap3 18:45 Arm band placed on right wrist. ap3 18:45 Patient has correct armband on for positive identification. Bed in low position. Call ap3 light in reach. Side rails up X2. Pulse ox on. NIBP on. 18:50 Cindy Shook PA-C is PHCP. sb4 18:50 Stu Banerjee MD is Attending Physician. sb4 19:02 Katharine Boogie, RN is Primary Nurse. ap3 19:08 Provided Education on: alternative pain relief education. ap3 21:39 No provider procedures requiring assistance completed. Patient did not have IV access ha1 during this emergency room visit. Administered Medications: 19:54 Drug: Ketorolac IM 30 mg Route: IM; Site: left deltoid; ha1 20:30 Follow up: Response: No adverse reaction; Pain is decreased ha1 19:54 Drug: Cyclobenzaprine PO 10 mg Route: PO; ha1 21:42 Follow up: Response: No adverse reaction ha1 20:52 Not Given (Physician Discretion): Ketamine IVP 10 mg IVP once sb4 Medication: 19:09 VIS not applicable for this client. ap3 Outcome: 20:31 Discharge ordered by . sb4 21:41 Discharged to home via ambulance. ha1 21:41 Condition: stable 21:41 Discharge instructions given to patient, Instructed on discharge instructions, follow up and referral plans. Demonstrated understanding of instructions, follow-up care. 21:43 Patient left the ED. ha1 Signatures: Katharine Boogie, RN RN ap3 Chyna Salinas RN RN ha1 Cindy Shook PA-C PAJono sb4
--- NOTE | 2023-04-26 20:32 | EDPHYS ---
Physician Documentation [facility] Name: Kiel Ngo Age: 72 yrs Sex: Male : 1950 Arrival Date: 04/26/2023 Time: 18:38 Bed 17 Private MD: ED Physician Stu Banerjee HPI: 04/26 19:23 This 72 yrs old Male presents to ER via EMS with complaints of back pain, hip pain. sb4 19:23 Onset: The symptoms/episode began/occurred chronic. Severity of symptoms: Pain is sb4 currently a 10 / 10. The patient has experienced similar episodes in the past, chronically, and the symptoms today are exactly the same. The patient has been recently seen at the [facility] Emergency Department, today. 72 year old male with chronic back and hip pain presents with 10/10 back and hip pain. he was seen this morning and given ketamine and discharged. he states that when he got home, his moved him around to trim his toe nails and caused his pain to come back. he is out of his pain medications and has an appointment to see his pain management doctor tomorrow. Historical: - Allergies: 18:44 Demerol; ap3 18:44 metformin; ap3 18:44 Morphine; ap3 - PMHx: 18:44 Atrial fibrillation; chronic back pain; Chronic right leg pain; neuropathy; ap3 - PSHx: 18:44 back sx; PANCREAS SX; R. Ankle SX; ap3 - Immunization history:: Client reports receiving the 2nd dose of the Covid vaccine. - Social history:: Smoking status: Patient denies any tobacco usage or history of. ROS: 19:23 Constitutional: Negative for fever, chills, and weight loss. sb4 19:23 MS/extremity: Positive for low back pain, right hip pain, right leg pain. 19:23 All other systems are negative. Exam: 19:23 Constitutional: This is a well developed, well nourished patient who is awake, alert, sb4 and in no acute distress. Head/Face: Normocephalic, atraumatic. Eyes: Extra-ocular motions intact. Periorbital areas with no swelling, redness, or edema. Abdomen/GI: Soft, non-tender, no distension. Skin: Warm, dry with normal turgor. Normal color with no rashes, no lesions, and no evidence of cellulitis. MS/ Extremity: Pulses equal, no cyanosis. Neurovascular intact. Full, normal range of motion. Neuro: Awake and alert, GCS 15, oriented to person, place, time, and situation. Cranial nerves II-XII grossly intact. Motor strength 5/5 in all extremities. Sensory grossly intact. Cerebellar exam normal. Normal gait. Vital Signs: 18:43 BP 94 / 57; Pulse 60; Resp 16; Temp 98.1; Pulse Ox 97% on R/A; Weight 81.65 kg; Height ap3 5 ft. 11 in. ; Pain 10/10; 19:45 BP 98 / 55; Pulse 54; Resp 15 S; Pulse Ox 97% ; ha1 20:15 BP 123 / 67; Pulse 60; Resp 16 S; Pulse Ox 97% ; ha1 21:10 BP 102 / 59; Pulse 63; Resp 18 S; Pulse Ox 100% on R/A; ha1 18:43 Body Mass Index 25.10 (81.65 kg, 180.34 cm) ap3 18:43 Pain Scale: Adult ap3 MDM: 18:50 Patient medically screened. sb4 19:23 Differential Diagnosis chronic pain, hip fracture, arthritis, septic joint, hip strain. sb4 20:30 Data reviewed: vital signs, nurses notes, EMS record, and as a result, I will discharge sb4 patient. 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 Special discussion: I discussed with the patient their frequent requests for pain medications. Instructions have been given, that in the best interests of the patient, further pain Rx's must come from the patient's PCP or a auto body painter. Administered Medications: 19:54 Drug: Ketorolac IM 30 mg Route: IM; Site: left deltoid; ha1 20:30 Follow up: Response: No adverse reaction; Pain is decreased ha1 19:54 Drug: Cyclobenzaprine PO 10 mg Route: PO; ha1 21:42 Follow up: Response: No adverse reaction ha1 20:52 Not Given (Physician Discretion): Ketamine IVP 10 mg IVP once sb4 Disposition Summary: 04/26/23 20:31 Discharge Ordered Location: Home sb4 Problem: an ongoing problem sb4 Symptoms: have improved sb4 Condition: Stable sb4 Diagnosis - chronic back and hip pain sb4 Followup: sb4 - With: Private Physician - When: Tomorrow - Reason: Recheck today's complaints, Continuance of care, Re-evaluation by your physician Forms: - Medication Reconciliation Form sb4 - Thank You Letter sb4 - Antibiotic Education sb4 - Prescription Opioid Use sb4 - Patient Portal Instructions sb4 Signatures: Katharine Boogie RN RN ap3 Chyna Salinas RN RN ha1 Cindy Shook, PA-C PA-C sb4
[2023-04-26 22:16] VITALS: TEMP 98.1
[2023-04-26 22:20] VITALS: BP 102/59; O2SAT 100
== END 2023-04-26 21:43 | disposition home or self-care (01) ==
LOC: ER 18:38
DX: G89.29 Other chronic pain (principal); M54.9 Dorsalgia, unspecified; Z88.5 Allergy status to narcotic agent; Z88.8 Allergy status to other drugs, medicaments and biological substances
CPT/HCPCS: 96372; 99284

== ENCOUNTER 2023-05-17 04:14 | Emergency (ER) | payer OTHER ==
--- OUTSIDE RECORDS SUMMARY | 2023-05-17 04:22 | XMS REPORT | Continuity of Care Document ---
:1950 Author Organization [facility] t Address [address] [place] [address] Care Team Providers Name Role Phone CALVIN WORLEY Primary Care Physician Unavailable [id number] Attending Clinician Unavailable KELLY WASHINGTON Attending Clinician Unavailable Zion Mathew Anavella Attending Clinician Unava ilable SWEETIE STOUT Attending Clinician Unavailable Girish VILLAREAL, Sweetie Attending Clinician Calvin Worley MD Attending Clinician Ruchi Peters RN Attending Clinician Paco Lacey DO Attending Clinician Hunter VILLAREAL, Vika Fernando Attending Clinician Alvarez Rowe MD Attending Clinician ALVAREZ ROWE Attending Clinician Unavailable PACO LACEY Attending Clinician Unavailable Doctor Unassigned, Hilliard Attending Clinician Unavailable Wilder VILLAREAL, Angi K.H. Attending Clinician Jl Mccabe MD Attending Clinician Kelly Washington MD Attending Clinician [phone] Lisandra Gallardo MD, Mukul Anand Attending Clinician [id number] Admitting Clinician Unavailable MUKUL GALLARDO Admitting Clinician Unavailable Angle Mathew, Anav Admitting Clinician Unavailable Hunter VILLAREAL, Vika Fernando Admitting Clinician VIKA HARRISON Admitting Clinician Unavailable Nicci VILLAREAL, Mukul Anand Admitting Clinician Payers Payer Name Policy Type Policy Number Effective Date Expiration Date Tony doe MEDICARE PART A [id number] 2007 \\T\\ B 00:00:00 [employer] INDEMNITY [id number] 2016 00:00:00 MCR MCR [id number] Problems Condition Condition Condition Status Onset Resolution [...] ents Source Name Type Date Date Clinician Burnet Propensi Active Rash 2019- Univers ty to [...] Exposure to Not sure University of SARS-CoV-2 [place] [facility] (event) Branch History of Chews Tobacco University of tobacco use [place] [facility] History SDOH 2020-11-17 2020-11-17 5 University o f Financial 00:00:00 00:00:00 [place] [facility] History SDOH Food 2020-11-17 2020-11-17 1 Univers ity of Worry 00:00:00 00:00:00 [place] [facility] History SDOH Food 2020-11-17 2020-11-17 1 Univers ity of Scarcity 00:00:00 00:00:00 [place] [facility] History SDOH 2020-11-17 2020-11-17 1 University o f Transport Med 00:00:00 00:00:00 [place] [facility] al Branch History SDSC 2020-11-17 2020-11-17 1 University o f Transport Non-Med 00:00:00 00:00:00 [facility] edical Branch Education 2020-11-16 2020-11-16 21 [place] of 00:00:00 00:00:00 [facility] [place] [facility] Branch Alcohol intake 2020-11-16 2020-11-16 Ex-drinker [place] of 00:00:00 00:00:00 (finding) [facility] Tobacco use and 2020-08-21 2020-08-21 Former user Universi ty of exposure 00:00:00 00:00:00 [facility] Tobacco Comment 2020-08-21 2020-08-21 quit 10 years Univer sity of 00:00:00 00:00:00 ago, started in [place] Med ical 2nd year of Branch college (~40 years) Alcohol Comment 2020-08-21 2020-08-21 Used to have 2-3 Uni versity of 00:00:00 00:00:00 six-packs of [place] [facility]ica l beer daily x 20 Branch years, quit 2004 History [facility] 2020-08-21 2020-08-21 99 University o f Alcohol Frequency 00:00:00 00:00:00 [place] [facility] edical Branch History SDSC 2020-08-21 2020-08-21 99 University o f Alcohol Std 00:00:00 00:00:00 [place] [facility] Drinks Branch History SDSC 2020-08-21 2020-08-21 99 University o f Alcohol Binge 00:00:00 00:00:00 [facility] al [place] Sex [birth year] Universit y of 00:00:00 00:00:00 [facility] Smoking Status Start Date Stop Date Source Never smoker [facility] Medications Ordered Filled Start [...] by ity of tablet 22:47: mouth at [place] 18 bedtime. Medical Branch HYDROmorpho 0 Yes [...] by ity of tablet 22:47: mouth at [place] 18 bedtime. Medical Branch HYDROmorpho Yes 4mg [...] by ity of tablet 16:47: mouth at [place] 18 bedtime. Medical Branch HYDROmorpho Yes 4mg [...] 0845, Until Discontinu ed, Routine amLODIPine Yes [id number] 10mg Take 1 Univers 10 mg 3-07 tablet by ity of tablet 00:00: mouth [place] 00 daily. Medical Branch clotrimazol Yes [id number] Apply to Univers e 1 % 3-07 face/ears, ity of topical 00:00: armpits, [place] cream 00 pannus and Medical back/any Branch other rash twice a day fluocinonid 0 Yes [id number] Apply to Univers e 0.05 % 3-07 scalp ity of solution 00:00: twice a 00 day Medical Branch triamcinolo 0 Yes [id number] Apply to Univers ne 3-07 back, ity of acetonide 00:00: armpits [place] 0.1 % cream 00 and other Med ical affected Branch areas twice daily, please mix with clotrimazo le hydrOXYzine Yes [id number] 10mg Take 1 Univers 10 mg 3-07 tablet by ity of tablet 00:00: mouth 2 (two) Medical times Branch daily. amLODIPine Yes [id number] 10mg Take 1 Univers 10 mg 3-07 tablet by ity of tablet 00:00: mouth [place] 00 daily. Medical Branch clotrimazol Yes [id number] Apply to Univers e 1 % 3-07 face/ears, ity of topical 00:00: armpits, [place] cream 00 pannus and Medical back/any Branch other rash twice a day fluocinonid 0 Yes [id number] Apply to Univers e 0.05 % 3-07 scalp ity of solution 00:00: twice a day Medical Branch triamcinolo Yes [id number] Apply to Univers ne 3-07 back, ity of acetonide 00:00: armpits [place] 0.1 % cream 00 and other Med ical affected Branch areas twice daily, please mix with clotrimazo le hydrOXYzine Yes [id number] 10mg Take 1 Univers 10 mg 3-07 tablet by ity of tablet 00:00: mouth 2 00 (two) Medical times Branch daily. amLODIPine 2020-0 Yes [id number] 10mg Take 1 Univers 10 mg 3-07 tablet by ity of tablet 00:00: mouth [place] 00 daily. Medical Branch clotrimazol 2020-0 Yes [id number] Apply to Univers e 1 % 3-07 face/ears, ity of topical 00:00: armpits, [place] cream 00 pannus and Medical back/any Branch other rash twice a day fluocinonid 2020-0 Yes [id number] Apply to Univers e 0.05 % 3-07 scalp ity of solution 00:00: twice a day Medical Branch triamcinolo 2020-0 Yes [id number] Apply to Univers ne 3-07 back, ity of acetonide 00:00: armpits [place] 0.1 % cream 00 and other Med ical affected Branch areas twice daily, please mix with clotrimazo le hydrOXYzine Yes [id number] 10mg Take 1 Univers 10 mg 3-07 tablet by ity of tablet 00:00: mouth 2 [place] 00 (two) Medical times Branch daily. amLODIPine Yes [id number] 10mg Take 1 Univers 10 mg 3-07 tablet by ity of tablet 00:00: mouth [place] 00 daily. Medical Branch clotrimazol Yes [id number] Apply to Univers e 1 % 3-07 face/ears, ity of topical 00:00: armpits, [place] cream 00 pannus and Medical back/any Branch other rash twice a day fluocinonid 2020- Yes [id number] Apply to Univers e 0.05 % 3-07 scalp ity of solution 00:00: twice a Medical Branch triamcinolo 0 Yes [id number] Apply to Univers ne 3-07 back, ity of acetonide 00:00: armpits [place] 0.1 % cream 00 and other Med ical affected Branch areas twice daily, please mix with clotrimazo le hydrOXYzine Yes [id number] 10mg Take 1 Univers 10 mg -07 tablet by ity of tablet 00:00: mouth 2 [place] (two) Medical times Branch daily. cephALEXin 2020-2020- No [id number] 500mg Take 1 Univers 500 mg -04 14- capsule by ity of capsule 00:00: 05:59 mouth [place] 00 :00 every 6 Medical (six) Branch hours for 3 days. cephALEXin 2020-0 2020- No [id number] 500mg Take 1 Univers 500 mg 3-04 14- capsule by ity of capsule 00:00: 05:59 mouth [place] 00 :00 every 6 Medical (six) Branch hours for 3 days. hydrOXYzine 2020-0 2020- No [id number] 10mg Take 1 Univers 10 mg 3-04 14-07 tablet by ity of tablet 00:00: 00:00 mouth 2 [place] 00 :00 (two) Medical times [place] daily. morpHINE Yes 4mg 4 mg, Slow [...] ity of mg 11:15: 10:58 ONCE, 1 [place] 00 :00 dose, Sat [facility] 12/16/20 at Branch 0515, Routine lactated 2020- No 1000mL at 125 Univ ers ringers IV 12-16 03-06 mL/hr, ity of infusion 01:00: 00:16 1,000 mL, [place] 1,000 mL 00 :00 IV Medical Infusion, [place] ONCE, 1 dose, 12/15/20 at 1900, Routine iohexol 2020- No 100mL 100 mL, Unive rs (OMNIPAQUE 12-15-05 Intravenou it y of 350 22:24: 22:24 s, ONCE, 1 [place] BULK-100 00 :00 dose, Fri Medica l mL) 12/15/20 at [place] injection 1645, 100 mL Routine cephALEXin 2020- [...] 0.9% 2020- No 500mL at 999 [facility] ers (NS) bolus 12-15-05 mL/hr, 500 it y of infusion 16:00: 15:26 mL, IV [place] 500 mL 00 :00 Piggyback, Medical ONCE, 1 Branch dose, Fri12/15/20 at 1000, STAT HYDROmorpho Yes 4mg 4 mg, [facility] rs ne 05 Oral, BID, ity of (DILAUDID) 15:30: First dose [place] tablet 4 mg 00 (after Medica l last Branch modificati on) on Fri12/15/20 at 0930, Until Discontinu ed, Routine amLODIPine 2020- No [id number] 10mg Take 1 Univers 10 mg 12-15-07 tablet by ity of tablet 00:00: 00:00 mouth [place] 00 :00 daily. Medical Branch HYDROmorpho 2020- No 1mg 1 mg, [facility] ers ne 12-14 03-05 Oral, ity of (DILAUDID) 17:35: 15:18 Q6HPRN, [place] tablet 1 mg 30 :06 Starting Medi [facility] 12/14/20 Branch at 1135, Until Fri12/15/20 at 0918, Routine, Pain (scale 7-10) hydrOXYzine Yes 10mg 10 mg, [facility] ers (ATARAX) 3-04 Oral, BID, ity o f tablet 10 17:30: First dose [place] mg [facility] 12/14/20 at Branch 1130, Until Discontinu ed, Routine lisinopriL Yes 5mg 5 mg, Univer s (PRINIVIL,Z 3-04 Oral, ity of ESTRIL) 17:30: DAILY, [place] tablet 5 mg 00 First dose Me dical on [facility] Branch 3/4/21 at 1130, Until Discontinu ed, Routine triamcinolo 2020- No [id number] Apply to Univers ne 12-14 back, ity of acetonide 00:00: 00:00 armpits [place] 0.1 % cream 00 :00 and other Med ical affected Branch areas twice daily, please mix with clotrimazo le clotrimazol 2020- No [id number] Apply to Univers e 1 % 12-14 face/ears, ity of topical 00:00: 00:00 armpits, [place] cream 00 :00 pannus and Medical back/any Branch other rash twice a day fluocinonid 2020- No [id number] Apply to Univers e 0.05 % 12-14 scalp ity of solution 00:00: 00:00 twice a [place] 00 :00 day Medical Branch hydrOXYzine 2020- No [id number] 10mg Take 1 Univers 10 mg 12-14 [...] IV Push, ity of (PF)) 10:07: Q6HPRN, [place] injection 4 28 Starting Medi jose c mg Fri12/13/20 Branch at 0407, Until Discontinu ed, Routine, Nausea and Vomiting (N/V) ondansetron 2020- No 4mg 4 mg, Slow Univers (ZOFRAN 3-03 IV Push, ity of (PF)) 04:55: 05:44 ONCE, 1 [place] injection 4 00 :00 dose, [facility] ical mg 12/12/20 at Branch 2300, Routine traMADoL 2020- No 50mg 50 mg, Univer s (ULTRAM) 12-13 03-03 Oral, ity of tablet 50 03:45: 03:34 ONCE, 1 [place] mg 00 :00 dose, [facility] 12/12/20 at Branch 2145, Routine insulin Yes 15U 15 Units, [facility] rs glargine 12-12 Subcutaneo ity o f (LANTUS 15:00: us, DAILY, [place] U-100) 00 First dose Medical injection on [facility] 15 Units 12/12/20 at 0900, Until Discontinu ed hydrOXYzine 2020- No 10mg 10 mg, Uni vers (ATARAX) 12-12 03-02 Oral, ity of tablet 10 08:15: 07:33 ONCE, 1 [place] mg 00 :00 dose, [facility] 12/12/20 at Branch 0215, Routine mirtazapine Yes 7.5mg 7.5 mg, Un toi (REMERON) 3-02 Oral, QHS, ity of tablet 7.5 03:00: First dose [place] mg 00 [facility] 12/11/20 at Branch 2100, Until [...] Oral, ity of (TYLENOL 23:23: 13:49 Q6HPRN, [place] #3) 300-30 43 :08 Starting Medic al [...] of 1,000 mg in 19:00: 17:35 Piggyback, [place] NaCl 0.9% 00 :26 Q8H ABX, Medica l (NS) 50 mL First dose Bra nch MINI-BAG on 12/11/20 at 1300, Until Discontinu ed, 50 mL
R jose armando for Anti-Infec tive: Documented Infection< br>Documen ronan Infection Site: Skin / Soft Tissue
Duration of Therapy: 7 days Sliding Yes Subcutaneo [facility] ers Scale 12-11 us, TID ity of Insulin - 18:00: MEALS+HS, [place] Lispro 00 First dose Medical (HumaLOG) + on Fri Branch Fsbg 12/11/20 at Testing 1200, Until Discontinu ed, Routine insulin Yes 5U 5 Units, [facility] [place] [facility] lispro 12-11 Subcutaneo ity of (human) 18:00: us, TID [place] (HumaLOG 00 MEALS, Medical U-100) First dose Branch injection 5 on Mon Units 12/11/20 at 1200, Until Discontinu ed Polyethylen Yes 17g 17 g, [facility] rs e Glycol 12-11 Oral, ity of 3350 17:47: Y60THOW, [place] (MIRALAX) 05 Starting Medica l powder 17 g 12/11/20 Br anch at 1147, Until Discontinu ed, Routine, Constipati on acetaminoph Yes 650mg 650 mg, Un toi en 12-11 Oral, ity of (TYLENOL) 16:51: Q6HPRN, [place] tablet 650 28 Starting Medic al mg [...] 0630, STAT piperacilli No 3.375g 3.375 g, [facility] n-tazobacta 12-11 IV ity of m (ZOSYN) 12:00: 17:48 [place]gyback, [place] injection 00 :24 Q6H, First Medi jose c 3.375 g dose on Branch Fri12/11/20 at 0600, Until Discontinu ed, KAHLIL
Re ason for Anti-Infec tive: Empiric Therapy for Suspected Infection< br>Empiric Therapy Site: Skin / Soft tissue
Duration of therapy: 72 hours sennosides- Yes [id number] 1{tbl} Take 1 [facility] docusate 2-09 tablet by ity of sodium 00:00: mouth 2 [place] 8.6-50 mg 00 (two) Medical per tablet times Branch daily. hydrocortis Yes [id number] Apply to [facility] one 2.5 % 11-21 affected ity of cream 00:00: area(s) 2 [place] 00 (two) Medical times Branch daily. blood sugar Yes [id number] Use to [facility] diagnostic 2- check ity of (FREESTYLE 00:00: blood [place] LITE 00 glucose Medical STRIPS) 4-5 times Branch strip daily. Polyethylen 2020- Yes [id number] 17g Take 1 Univers e Glycol 2-09 Packet by ity of 3350 17 00:00: mouth [place] gram powder 00 every 24 Medi jose c (twenty-fo Branch ur) hours as needed for Constipati on. sennosides- Yes [id number] 1{tbl} Take 1 Univers docusate 2-09 tablet by ity of sodium 00:00: mouth 2 [place] 8.6-50 mg 00 (two) Medical per tablet times Branch daily. hydrocortis 2020- Yes [id number] Apply to Univers one 2.5 % 2-09 affected ity of cream 00:00: area(s) 2 [place] 00 (two) Medical times Branch daily. blood sugar Yes [id number] Use to Univers diagnostic 2-09 check ity of (FREESTYLE 00:00: blood [place] LITE 00 glucose Medical STRIPS) 4-5 times Branch strip daily. Polyethylen Yes [id number] 17g Take 1 Univers e Glycol 2-09 Packet by ity of 3350 17 00:00: mouth [place] gram powder 00 every 24 Medi jose c (twenty-fo Branch ur) hours as needed for Constipati on. sennosides- Yes [id number] 1{tbl} Take 1 Univers docusate 2-09 tablet by ity of sodium 00:00: mouth 2 [place] 8.6-50 mg 00 (two) Medical per tablet times Branch daily. hydrocortis 2020- Yes [id number] Apply to Univers one 2.5 % 2-09 affected ity of cream 00:00: area(s) 2 [place] 00 (two) Medical times Branch daily. blood sugar 2020-0 Yes [id number] Use to Univers diagnostic 209 check ity of (FREESTYLE 00:00: blood [place] LITE 00 glucose Medical STRIPS) 4-5 times Branch strip daily. Polyethylen 2020-0 Yes [id number] 17g Take 1 Univers e Glycol 2-09 Packet by ity of 3350 17 00:00: mouth [place] gram powder 00 every 24 Medi jose c (twenty-fo Branch ur) hours as needed for Constipati on. sennosides- 2020- Yes [id number] 1{tbl} Take 1 Univers docusate 2-09 tablet by ity of sodium 00:00: mouth 2 [place] 8.6-50 mg 00 (two) Medical per tablet times Branch daily. hydrocortis Yes [id number] Apply to [facility] one 2.5 % 11-21 affected ity of cream 00:00: area(s) 2 [place] 00 (two) Medical times Branch daily. blood sugar Yes [id number] Use to [facility] diagnostic 11-21 check ity of (FREESTYLE 00:00: blood [place] LITE 00 glucose Medical STRIPS) 4-5 times Branch strip daily. Polyethylen Yes [id number] 17g Take 1 Univers e Glycol 11-21 Packet by ity of 3350 17 00:00: mouth [place] gram powder 00 every 24 Medi jose c (twenty-fo Branch ur) hours as needed for Constipati on. Insulin 2020- No [id number] 15U inject 15 Univers Glargine 11-21 Units ity of (LANTUS 00:00: 05:59 under the [facility] [employer] [place] SOLOSTAR 00 :00 skin every Medic al U-100 morning Branch INSULIN) for 30 100 unit/mL days. (3 mL) injection venlafaxine 2020- No [id number] 150mg Take 1 Univers XR 150 mg 11-21 capsule by ity of 24 hr 00:00: 05:59 mouth 3 [place] capsule 00 :00 (three) Medical times Branch daily for 30 days. Insulin 2020- No [id number] 15U inject 15 Univers Glargine 11-21-12 Units ity of (LANTUS 00:00: 05:59 under the CAN [employer] [place] SOLOSTAR 00 :00 skin every Medic al U-100 morning Branch INSULIN) for 30 100 unit/mL days. (3 mL) injection venlafaxine 2020- No [id number] 150mg Take 1 Univers XR 150 mg 11-21 capsule by ity of 24 hr 00:00: 05:59 mouth 3 [place] capsule 00 :00 (three) Medical times Branch daily for 30 days. triamcinolo 2020- No [id number] Apply to [facility] ne 11-21-04 area(s) 2 ity of acetonide 00:00: 00:00 (two) [place] 0.1 % cream 00 :00 times Medical daily. Branch cephALEXin 2020- No [id number] 1000mg Take 2 Univers 500 mg 11-21 capsules ity of capsule 00:00: 00:00 by mouth 3 [place] 00 :00 (three) Medical times Branch daily. doxycycline 2020- No [id number] 100mg Take 1 Univers hyclate 100 11-21 capsule by i ty of mg capsule 00:00: 00:00 mouth [place] 00 :00 every 12 Medical (twelve) Branch hours. lactobacill 2020- No [id number] 1{tbl} Take 1 Univers us 11-21 tablet by ity of acidophilus 00:00: 00:00 mouth 2 [place] 25 million 00 :00 (two) Medical cell -100 times Branch mg captab daily. bisacodyL 2020- No [id number] 10mg Insert 1 Univers 10 mg 11-21 Suppositor ity of suppository 00:00: 00:00 y into [place] 00 :00 rectum at Medical bedtime as Branch needed for Constipati on. ALPRAZolam 2020- No [id number] .25mg Take 1 Univers (XANAX) 11-21 tablet by ity of 0.25 mg 00:00: 00:00 mouth 2 [place] tablet 00 :00 (two) Medical times Branch daily. hydrOXYzine 2020- No [id number] 20mg Take 2 Univers 10 mg 11-21 [...] 3 ity of 6 mg 01:13: (three) [place] capsule 36 times Medical daily. Branch Insulin 2019-10 Yes 15U inject 15 Unive rs Glargine 1-12 Units ity of (LANTUS 01:13: under the [place] SOLOSTAR) 36 skin. Medical 100 unit/mL Branch [...] Units ity of (LANTUS 01:13: under the [place] SOLOSTAR) 36 skin. Medical 100 unit/mL Branch [...] Units ity of (LANTUS 01:13: under the [place] SOLOSTAR) 36 skin. Medical 100 unit/mL Branch (3 mL) InPn INSULIN 2019-10 Yes 5U inject 5 Univer s ASPART 1-12 Units ity of (NOVOLOG 01:13: under the [facility] s FLEXPEN SC) 36 skin. Medical Branch ALPRAZolam 2019-10 Yes .25mg Take 0.25 U nivers (XANAX) 1-12 mg by ity of 0.25 mg 01:13: mouth 2 [place] tablet 36 (two) Medical times Branch daily. HYDROXYZINE 2019-10 2020- No 25mg Take 25 mg Univers PAMOATE 1-11 11-11 by mouth ity of ORAL 20:04: 00:00 daily. [place] 34 :00 Medical Branch hydrocortis 2019-10 Yes [id number] Apply to Univers one 2.5 % 1-11 affected ity of cream 00:00: area(s) 2 [place] 00 (two) Medical times Branch daily. hydrOXYzine 2019-10 Yes [id number] 20mg Take 2 Univers 10 mg 1-11 tablets by ity of tablet 00:00: mouth [place] 00 every 8 Medical (eight) Branch hours as needed for Itching or Anxiety. Polyethylen 2019-10 Yes [id number] 17g Take 1 Univers e Glycol 1-11 Packet by ity of 3350 17 00:00: mouth [place] gram powder 00 every 24 Medi jose c (twenty-fo Branch ur) hours as needed for Constipati on. hydrocortis 2019-10 Yes [id number] Apply to Univers one 2.5 % 1-11 affected ity of cream 00:00: area(s) 2 [place] 00 (two) Medical times Branch daily. hydrOXYzine 2019- Yes [id number] 20mg Take 2 Univers 10 mg 1-11 tablets by ity of tablet 00:00: mouth [place] 00 every 8 Medical (eight) Branch hours as needed for Itching or Anxiety. Polyethylen 2019- Yes [id number] 17g Take 1 Univers e Glycol 1-11 Packet by ity of 3350 17 00:00: mouth [place] gram powder 00 every 24 Medi jose c (twenty-fo Branch ur) hours as needed for Constipati on. hydrocortis 2019- Yes [id number] Apply to Univers one 2.5 % 1-11 affected ity of cream 00:00: area(s) 2 [place] (two) Medical times Branch daily. hydrOXYzine 2019- Yes [id number] 20mg Take 2 Univers 10 mg 1-11 tablets by ity of tablet 00:00: mouth [place] 00 every 8 Medical (eight) Branch hours as needed for Itching or Anxiety. Polyethylen 2019- Yes [id number] 17g Take 1 Univers e Glycol 1-11 Packet by ity of 3350 17 00:00: mouth [place] gram powder 00 every 24 Medi jose c (twenty-fo Branch ur) hours as needed for Constipati on. hydrocortis 2019-10 Yes [id number] Apply to Univers one 2.5 % 1-11 affected ity of cream 00:00: area(s) 2 [place] (two) Medical times Branch daily. hydrOXYzine 2019- Yes [id number] 20mg Take 2 Univers 10 mg 1-11 tablets by ity of tablet 00:00: mouth [place] 00 every 8 Medical (eight) Branch hours as needed for Itching or Anxiety. Polyethylen 2019- Yes [id number] 17g Take 1 Univers e Glycol 1-11 Packet by ity of 3350 17 00:00: mouth [place] gram powder 00 every 24 Medi jose c (twenty-fo Branch ur) hours as needed for Constipati on. hydrocortis 2019-10 Yes [id number] Apply to Univers one 2.5 % 1-11 affected ity of cream 00:00: area(s) 2 [place] 00 (two) Medical times Branch daily. hydrOXYzine 2019-10 Yes [id number] 20mg Take 2 Univers 10 mg 1-11 tablets by ity of tablet 00:00: mouth [place] 00 every 8 Medical (eight) Branch hours as needed for Itching or Anxiety. Polyethylen 2020- Yes [id number] 17g Take 1 Univers e Glycol 1-11 Packet by ity of 3350 17 00:00: mouth [place] gram powder 00 every 24 Medi jose c (twenty-fo Branch ur) hours as needed for Constipati on. hydrocortis 2019- Yes [id number] Apply to Univers one 2.5 % 1-11 affected ity of cream 00:00: area(s) 2 [place] 00 (two) Medical times Branch daily. hydrOXYzine 2019- Yes [id number] 20mg Take 2 Univers 10 mg 1-11 tablets by ity of tablet 00:00: mouth [place] 00 every 8 Medical (eight) Branch hours as needed for Itching or Anxiety. Polyethylen 2019- Yes [id number] 17g Take 1 Univers e Glycol 1-11 Packet by ity of 3350 17 00:00: mouth [place] gram powder 00 every 24 Medi jose c (twenty-fo Branch ur) hours as needed for Constipati on. hydrocortis 2019-10 Yes [id number] Apply to Univers one 2.5 % 1-11 affected ity of cream 00:00: area(s) 2 [place] 00 (two) Medical times Branch daily. hydrOXYzine 2019-10 Yes [id number] 20mg Take 2 Univers 10 mg 1-11 tablets by ity of tablet 00:00: mouth [place] 00 every 8 Medical (eight) Branch hours as needed for Itching or Anxiety. Polyethylen 2019- Yes [id number] 17g Take 1 Univers e Glycol 1-11 Packet by ity of 3350 17 00:00: mouth [place] gram powder 00 every 24 Medi jose c (twenty-fo Branch ur) hours as needed for Constipati on. triamcinolo 2019- 2020- No [id number] Apply to [facility] [place] [facility] 10-23 area(s) 2 ity of acetonide 00:00: 05:59 (two) [place] 0.1 % cream 00 :00 times Medical daily for Branch 14 days. triamcinolo 2019- 2020- No [id number] Apply to [facility] [place] [facility] 10-23 area(s) 2 ity of acetonide 00:00: 05:59 (two) [place] 0.1 % cream 00 :00 times Medical daily for Branch 14 days. triamcinolo 2019- 2020- No [id number] Apply to [facility] ne 10-23 area(s) 2 ity of acetonide 00:00: 05:59 (two) [place] 0.1 % cream 00 :00 times Medical daily for Branch 14 days. KCL 2019- 2020- No 40meq 40 mEq, Univers (KLOR-CON 1-10 11-10 Oral, ONCE ity of M20) tablet 16:15: 16:23 NOW, 1 [place] 40 mEq 00 :00 dose, [facility] 08/22/20 Branch at 1015, Routine HYDROmorpho 2019-10 Yes 1mg 1 mg, Unive rs ne 1-10 Oral, ity of (DILAUDID) 15:07: Q6HPRN, [place] tablet 1 mg 53 Starting [facility] 08/22/20 at 0907, Until Discontinu ed, Routine, Pain (scale 7-10) hydrocortis 2019-10 Yes Topical Uni vers one 2.5 % 1-10 (Apply To ity o f cream 02:00: Affected [place] 00 Areas), Medical BID, First Branch dose on [facility] 08/21/20 at 2000, Until Discontinu ed, Routine triamcinolo 2019-10 Yes Topical, Un toi ne 1-10 BID, First ity of acetonide 02:00: dose on [place] (TRIDERM) [facility] Medical 0.1 % cream 08/21/20 at Br anch 2000, Until Discontinu ed, Routine hydrOXYzine 2019-10 Yes 20mg 20 mg, Univ ers (ATARAX) 09 Oral, ity of tablet 20 17:39: Q8HPRN, [place] mg 12 Starting [facility] 08/21/20 at 1139, Until Discontinu ed, Routine, Itching, Anxiety sennosides- 2019-10 Yes 1{tbl} 1 tablet, Univers docusate 09 Oral, ity of sodium 15:00: DAILY, [place] (SENOKOT-S) 00 First dose Me dical 8.6-50 [...] [facility] 08/21/20 at 0656, Until [facility] 08/21/20 at 1139, Routine, Itching, Mild Rash, Congestion /Allergies , alternate with hydroxyzin e hydrOXYzine 2019-10- No 10mg 10 mg, Uni vers (ATARAX) 10-21 Oral, ity of tablet 10 10:20: 12:57 Q6HPRN, [place] mg 22 :12 Starting Medical [facility] 08/21/20 at 0420, Until [facility] 08/21/20 at 0657, Routine, Itching, Anxiety [...] 1 ity o f 09:30: 09:14 dose, [facility] 00 :00 08/21/20 at [facility] 0330, Branch Routine Polyethylen 2019-10 Yes 17g 17 g, Unive rs e Glycol 10-21 Oral, ity of 3350 08:29: [id number], [place] (MIRALAX) 09 Starting Medica l powder 17 [...] No [facility] (BETAPACE[facility] 10-21 mouth ity of 240 mg 07:43: 00:00 every 12 [place] tablet 30 :00 (twelve) Medical hours. Branch blood sugar Yes Use to [facility] ers diagnostic 4-25 check ity of (FREESTYLE 00:00: blood [place] LITE 00 glucose Medical STRIPS) 4-5 times Branch strip daily. blood sugar Yes Use to [facility] ers diagnostic 4-25 check ity of (FREESTYLE 00:00: blood [place] LITE 00 glucose Medical STRIPS) 4-5 times Branch strip daily. blood sugar Yes Use to [facility] ers diagnostic 4-25 check ity of (FREESTYLE 00:00: blood [place] LITE 00 glucose Medical STRIPS) 4-5 times Branch strip daily. blood sugar Yes Use to [facility] ers diagnostic 4-25 check ity of (FREESTYLE 00:00: blood [place] LITE 00 glucose Medical STRIPS) 4-5 times Branch strip daily. blood sugar Yes Use to [facility] ers diagnostic 4-25 check ity of (FREESTYLE 00:00: blood [place] LITE 00 glucose Medical STRIPS) 4-5 times Branch strip daily. blood sugar Yes Use to [facility] ers diagnostic -25 check ity of (FREESTYLE 00:00: blood [place] LITE 00 glucose Medical STRIPS) 4-5 times Branch strip daily. blood sugar Yes Use to [facility] ers diagnostic -25 check ity of (FREESTYLE 00:00: blood [place] LITE 00 glucose Medical STRIPS) 4-5 times Branch strip daily. Vital Signs Vital Name Observation Time Observation Value Comments Source Systolic blood 2021-08-22 13:00:00 148 mm[Hg] Univer sity of [facility] Diastolic blood 2021-08-22 13:00:00 84 mm[Hg] Unive rsity [facility] Heart rate 2021-08-22 13:00:00 103 /min [facility] Respiratory rate 2021-08-22 13:00:00 18 /min [facility] Oxygen saturation in 2021-08-22 13:00:00 95 /min [facility] Arterial blood by [facility] Pulse oximetry Branch Body temperature 2021-08-22 12:22:[address] [facility] Systolic blood 2020-12-17 18:35:00 139 mm[Hg] Univer sity of [facility] Diastolic blood 2020-12-17 18:35:00 87 mm[Hg] Unive rsity of [facility] Heart rate 2020-12-17 18:35:00 110 /min [facility] Body temperature 2020-12-17 18:35:[address] [facility] Respiratory rate 2020-12-17 18:35:00 18 /min [facility] Oxygen saturation in 2020-12-17 18:35:00 93 /min University of Arterial blood by [facility] jose c Pulse oximetry Branch Body height 2020-12-12 08:21:00 180.3 cm [facility] [place] [facility] Body weight 2020-12-12 08:21:00 103.42 kg [facility] [place] [facility] BMI 2020-12-12 08:21:00 31.80 kg/m2 [facility] [place] [facility] Systolic blood 2020-12-17 18:35:00 139 mm[Hg] Univer sity of pressure [place] [facility] Diastolic blood 2020-12-17 18:35:00 87 mm[Hg] Unive rsity of pressure [place] [facility] Heart rate 2020-12-17 18:35:00 110 /min [facility] [place] [facility] Body temperature 2020-12-17 18:35:00 37.72 [place] Univ ersity [facility] [place] [facility] Respiratory rate 2020-12-17 18:35:00 18 /min Univ ersity [facility] [place] [facility] Oxygen saturation in 2020-12-17 18:35:00 93 /min University of Arterial blood by [facility] Pulse oximetry Branch Body height 2020-12-12 08:21:00 180.3 cm [facility] [place] [facility] Body weight 2020-12-12 08:21:00 103.42 kg [facility] [place] [facility] BMI 2020-12-12 08:21:00 31.80 kg/m2 [facility] [place] [facility] Systolic blood 2020-08-23 19:27:00 140 mm[Hg] Univer sity of pressure [place] [facility] Diastolic blood 2020-08-23 19:27:00 79 mm[Hg] Unive rsity of pressure [place] [facility] Heart rate 2020-08-23 19:27:00 99 /min [facility] [place] [facility] Body temperature 2020-08-23 19:27:00 36 [place] Univ ersity [facility] [place] [facility] Respiratory rate 2020-08-23 19:27:00 18 /min Univ ersity [facility] [place] [facility] Oxygen saturation in 2020-08-23 19:27:00 93 /min University of Arterial blood by [facility] Pulse oximetry Branch Body weight 2020-08-21 07:20:00 104.962 kg [facility] [place] [facility] BMI 2020-08-21 07:20:00 32.27 kg/m2 [facility] [place] [facility] Systolic blood 2020-08-23 19:27:00 140 mm[Hg] Univer sity of pressure [facility] Diastolic blood 2020-08-23 19:27:00 79 mm[Hg] [facility] of pressure [facility] Heart rate 2020-08-23 19:27:00 99 /min [facility] Body temperature 2020-08-23 19:27:00 36 [place] [facility] [place] [facility] Respiratory rate 2020-08-23 19:27:00 18 /min Univ [facility] Oxygen saturation in 2020-08-23 19:27:00 93 /min [facility] Arterial blood by [facility] Pulse oximetry [place] Body weight 2020-08-21 07:20:00 104.962 kg [facility] BMI 2020-08-21 07:20:00 32.27 kg/m2 [facility] Procedures Procedure Date / Time Performing Clinician Source Performed POCT GLUCOSE (AUTOMATED) 2020-12-17 15:42:00 Favio Harrisonal G Uni [facility] BASIC METABOLIC PANEL 2020-12-17 10:45:00 Paul Bean [facility] (NA, K, CL, CO2, GLUCOSE, [place] Medica l Branch BUN, CREATININE, CA) CBC WITH DIFF 2020-12-17 10:45:00 Paul Bean [facility] POCT GLUCOSE (AUTOMATED) 2020-12-17 02:36:00 Vika Harrison G Uni [facility] XR TIBIA FIBULA 2 VW LEFT 2020-12-16 23:38:00 [facility] PO[facility] GLUCOSE (AUTOMATED) 2020-12-16 23:20:00 Harrison, [facility]al [facility] POCT GLUCOSE (AUTOMATED) 2020-12-16 20:10:00 Hunter Premal [facility] POCT GLUCOSE (AUTOMATED) 2020-12-16 14:43:00 Hunter Premal [facility] BASIC METABOLIC PANEL 2020-12-16 13:51:00 Paul Bean [facility] (NA, K, CL, CO2, GLUCOSE, [place] [facility] BUN, CREATININE, CA) CBC WITH DIFF 2020-12-16 13:51:00 Paul Bean [facility] POCT GLUCOSE (AUTOMATED) 2020-12-16 04:00:00 Harrison, Premal G Uni versity of [facility] POCT GLUCOSE (AUTOMATED) 2020-12-16 00:14:00 Harrison, Premal G Uni versity of [facility] CT CHEST PULMONARY 2020-12-15 22:29:38 Paul Bean [facility] ANGIOGRAM [facility] POCT GLUCOSE (AUTOMATED) 2020-12-15 19:26:00 Harrison, Premal G Uni versity of [facility] POCT GLUCOSE (AUTOMATED) 2020-12-15 15:13:00 Harrison, Premal [facility] HB ECG ROUTINE & RHYTHM 2020-12-15 14:25:27 Cailin Romo [facility] Branch MAGNESIUM 2020-12-15 12:01:00 Paul Bean Sivakumar [facility] BASIC METABOLIC PANEL 2020-12-15 12:01:00 Paul Bean [facility] (NA, K, CL, CO2, GLUCOSE, [place] [facility] BUN, CREATININE, CA) CBC WITH DIFF 2020-12-15 12:01:00 Paul Bean Sivakumar [facility] POCT GLUCOSE (AUTOMATED) 2020-12-15 03:57:00 Harrison, Premal G Uni versity of [facility] POCT GLUCOSE (AUTOMATED) 2020-12-14 23:31:00 Harrison, Premal G Uni versity of [facility] POCT GLUCOSE (AUTOMATED) 2020-12-14 19:08:00 Harrison, Premal G Uni versity of [facility] POCT GLUCOSE (AUTOMATED) 2020-12-14 15:11:00 Harrison, Premal G Uni versity of [facility] POCT GLUCOSE (AUTOMATED) 2020-12-14 02:36:00 Harrison, Premal G Uni versity of [facility] POCT GLUCOSE (AUTOMATED) 2020-12-13 23:32:00 Harrison, Premal G Uni versity of [facility] POCT GLUCOSE (AUTOMATED) 2020-12-13 18:08:00 Harrison, Premal G Uni versity of [facility] BASIC METABOLIC PANEL 2020-12-13 15:39:00 Paul Bean [facility] (NA, K, CL, CO2, GLUCOSE, [place] [facility] BUN, CREATININE, CA) CBC WITH DIFF 2020-12-13 15:39:00 Paul Bean [facility] POCT GLUCOSE (AUTOMATED) 2020-12-13 14:06:00 Harrison, Premal G Uni versity of [facility] POCT GLUCOSE (AUTOMATED) 2020-12-13 03:07:00 Harrison, Premal G Uni versity of [facility] POCT GLUCOSE (AUTOMATED) 2020-12-12 23:52:00 Harrison, Premal G Uni versity of [facility] POCT GLUCOSE (AUTOMATED) 2020-12-12 20:28:00 Harrison, Premal G Uni versity of [facility] POCT GLUCOSE (AUTOMATED) 2020-12-12 19:14:00 Harrison, Premal G Uni versity of [facility] POCT GLUCOSE (AUTOMATED) 2020-12-12 14:33:00 Harrison, Premal G Uni versity of [facility] MAGNESIUM 2020-12-12 08:58:00 Paul Bean [facility] BASIC METABOLIC PANEL 2020-12-12 08:58:00 Paul Bean [facility] (NA, K, CL, CO2, GLUCOSE, [place] [facility] BUN, CREATININE, CA) CBC WITH DIFF 2020-12-12 08:58:00 Paul Bean [facility] US ABDOMEN LIMITED 2020-12-12 06:32:26 Paul Bean [facility] POCT GLUCOSE (AUTOMATED) 2020-12-12 03:40:00 Harrison, Premal G Uni versity of [facility] POCT GLUCOSE (AUTOMATED) 2020-12-12 00:06:00 Harrison, Premal G Uni versity [facility] [place] [facility] XR HIPS 3 VW LEFT 2020-12-11 20:20:00 Paul Bean Sivakumar [facility] HB ECG ROUTINE & RHYTHM 2020-12-11 20:04:06 Demetrius [facility] VITAMIN B6, PLASMA 2020-12-11 19:17:00 Paul Bean Sivakumar [facility] POCT GLUCOSE (AUTOMATED) 2020-12-11 19:06:00 Vika Harrison [facility] CREATINE KINASE 2020-12-11 18:22:00 Parvez [facility] VITAMIN B12, LEVEL 2020-12-11 18:22:00 Vikas [facility] FOLATE 2020-12-11 18:22:00 Vikas [facility] THYROID STIMULATING 2020-12-11 18:22:00 Demetrius [facility] HORMONE [facility] PROCALCITONIN 2020-12-11 18:22:00 Vikas [facility] VITAMIN B1 (THIAMINE), 2020-12-11 18:22:00 [facility] HEAD WO CONTRAST 2020-12-11 14:07:35 Sweetie Stout [facility] URINALYSIS 2020-12-11 13:44:00 Singer [facility] URINE CULTURE 2020-12-11 13:44:00 Singer [facility] COVID-19 (ID NOW RAPID 2020-12-11 12:31:00 Paco Lacey [facility] TESTING) Medical Branch LAB ONLY COVID 2020-12-11 12:31:00 Singer [facility] INTERPRETATION [facility] XR CHEST 1 VW 2020-12-11 12:07:24 Singer [facility] BLOOD CULTURE SCREEN 2020-12-11 12:02:00 Paco Lacey [facility] MAGNESIUM 2020-12-11 12:02:00 [facility] F[facility]UM 2020-12-11 12:02:00 Paul Bean [facility] COMP. METABOLIC PANEL 2020-12-11 12:02:00 Singer [facility] ([id number]) Medical [place] CBC WITH DIFF 2020-12-11 12:02:00 Singer [facility] LACTIC ACID WHOLE BLOOD 2020-12-11 12:02:[address] [facility] BLOOD CULTURE SCREEN 2020-12-11 11:42:00 Singer Paco [facility] EMERGENCY SERVICES 2020-12-11 06:01:00 Doctor Unassnadya, [facility] AGREEMENTS AND [place] [facility] [place] AUTHORIZATIONS HOSPITAL ADMISSION 2020-12-11 06:01:00 Doctor Unaowen, [facility] Name [facility] [place] HOME HEALTH - OTHER 2020-11-11 06:01:00 Doctor Tabitha [facility] [place] [place] HOME [facility] - OTHER 2020-10-30 06:01:00 Doctor Unaowen [facility] Name Medical [place] EXTERNAL PROVIDER RECORDS 2020-09-01 06:01:00 Doctor Tabitha, [facility] Name [facility] POCT GLUCOSE (AUTOMATED) 2020-08-23 18:09:00 Kelly [place] [facility] POCT GLUCOSE (AUTOMATED) 2020-08-23 14:14:00 Kelly [place] [facility] MAGNESIUM 2020-08-23 11:18:00 Ramya [facility] BASIC METABOLIC PANEL 2020-08-23 11:18:00 [place] [facility] (NA, K, CL, CO2, GLUCOSE, Medica l Branch BUN, CREATININE, CA) CBC WITH DIFF 2020-08-23 11:18:00 [place] [facility] POCT GLUCOSE (AUTOMATED) 2020-08-23 10:21:00 Kelly [place] [facility] POCT GLUCOSE (AUTOMATED) 2020-08-23 05:55:00 Kelly [place] [facility] POCT GLUCOSE (AUTOMATED) 2020-08-23 03:00:00 Kelly [place] Jada versity [facility] POCT GLUCOSE (AUTOMATED) 2020-08-22 23:38:00 Kelly [place] Jada versity of [facility] POCT GLUCOSE (AUTOMATED) 2020-08-22 19:04:00 Kelly [place] Jada versity of [facility] POCT GLUCOSE (AUTOMATED) 2020-08-22 13:49:00 Kelly [place] Jada versity [facility] MAGNESIUM 2020-08-22 10:10:00 [place], [facility] HEPATIC FUNCTION PANEL 2020-08-22 10:10:00 Aguila Melchor [facility] ([id number]) (ALB,T.PRO,BILI Medical Branch T,BU/BC,ALT,AST,ALK PHOS) BASIC METABOLIC PANEL 2020-08-22 10:10:00 [place] [facility] (NA, K, CL, CO2, GLUCOSE, Medica l Branch BUN, CREATININE, CA) LIPID PANEL ([id number])(TOTAL 2020-08-22 10:10:00 [place], [facility] CHOLESTEROL, Medical [place] TRIGLYCERIDES, HDL) CBC WITH DIFF 2020-08-22 10:10:00 [place], [facility] POCT GLUCOSE (AUTOMATED) 2020-08-22 10:10:00 Kelly [place] [facility] POCT GLUCOSE (AUTOMATED) 2020-08-22 07:13:00 Kelly [place] versity of [facility] POCT GLUCOSE (AUTOMATED) 2020-08-22 02:24:00 Kelly [place] versity of [facility] POCT GLUCOSE (AUTOMATED) 2020-08-21 23:40:00 Kelly [place] versity of [facility] POCT GLUCOSE (AUTOMATED) 2020-08-21 18:10:00 Kelly [place] versity of [facility] POCT GLUCOSE (AUTOMATED) 2020-08-21 13:39:00 Kelly [place] [facility] ETHANOL 2020-08-21 12:35:00 [facility] 2020-08-21 12:35:00 Padmini [facility] GALV ONLY - SYPHILIS 2020-08-21 12:35:00 Padmini [facility] IGG/IGM [facility] LACTATE DEHYDROGENASE 2020-08-21 10:09:00 [place], [facility] GALV/CLC ONLY - URINE 2020-08-21 10:09:00 Richie [facility] DRUG (IMMUNOASSAY) - 4 ER Medica l Branch PANEL URINALYSIS 2020-08-21 10:09:00 [place], [facility] URINE CULTURE 2020-08-21 10:09:00 [place], [facility] PROCALCITONIN 2020-08-21 10:09:00 Ramya, [facility] POCT GLUCOSE (AUTOMATED) 2020-08-21 09:41:00 Kelly [facility] PROTHROMBIN TIME / INR 2020-08-21 08:32:00 Ramya, [facility] ACTIVATED PARTIAL 2020-08-21 08:32:00 Ramya, [facility] C-REACTIVE PROTEIN 2020-08-21 08:31:00 [place], [facility] HEPATIC FUNCTION PANEL 2020-08-21 08:31:00 Ramya, [facility] ([id number]) (ALB,T.PRO,BILI Medical Branch T,BU/BC,ALT,AST,ALK PHOS) BASIC METABOLIC PANEL 2020-08-21 08:31:00 [place], [facility] (NA, K, CL, CO2, GLUCOSE, Medica l Branch BUN, CREATININE, CA) SEDIMENTATION RATE 2020-08-21 08:31:00 Ramya, [facility] CBC WITH DIFF 2020-08-21 08:31:00 [place], [facility] GLYCOSYLATED HEMOGLOBIN 2020-08-21 08:31:00 [place], [facility] (A1C) [facility] [place] HIV 1/2 AG-AB WITH REFLEX 2020-08-21 08:31:00 [facility] COVID-19 (ID NOW RAPID 2020-08-21 08:20:00 Haiyl Bui [facility] TESTING) Medical Branch LAB ONLY COVID 2020-08-21 08:20:00 [place] [facility] [place] INTERPRETATION [facility] Branch Encounters Start End Encounter Admission Attending Care Care Encounter Source Date/Time Date/Time Type Type Clinicians Facility Department ID 2022-11-13 Outpatient 3 [id number] ENCPL REF [id number] [facility] 11:39:58 0201 [facility] Pear[place]har dang 2020-08-21 Inpatient U [place], MOTONG KVNG [id number] Univers 01:07:00 KELLY cantu [facility] 2022-11-14 2022-11-28 Inpatient 3 [facility] ENCPL DELVIS [id number] [facility] 20:40:00 13:29:00 shaggy [facility] Pear[facility]ikhar d 2021-08-22 2021-08-22 Emergency X [facility] ERT [id number] Univers 06:21:00 08:02:00 SWEETIE cantu [facility] 2021-08-22 2021-08-22 [facility] [id number] Univers 06:21:00 08:02:00 Sweetie LOTT [id number] i ty of OMENA 4.2.7.2.686 [facility] [place] [id number] [facility] 084 Branch 2020-12-28 2020-12-28 Telephone [facility] [id number] Univers 00:00:00 00:00:00 Calvin WILLIAM [id number] it y of CARE 4.2.7.2.686 [facility] [id number] Il dical 220 Branch 2020-12-28 2020-12-28 [facility] [id number] 00:00:00 00:00:00 Calvin WILLIAM [id number] CARE 4.2.7.2.686 [facility] [id number] 220 2020-12-19 2020-12-19 Transition Tuan Peters [id number] Univers 00:00:00 00:00:00 of Care Ruchi Braswell [id number] it y of [place] 4.2.7.2.686 [place] [id number] [facility] 403 Branch 2020-12-19 2020-12-19 Transition Tuan Peters 1.2.840.114 [id number] 00:00:00 00:00:00 of Care Ruchi Braswell [id number] [place] [id number] [id number] 2020-12-11 2020-12-17 [facility] Paco Lacey 1.2.840.1 [id number] Univers 05:11:00 16:00:00 Encounter HarrisonFaviovik Amaya [id number] ity of [facility] 4.2.7.2.686 [place] [id number] [facility] 096 Branch 2020-12-11 2020-12-17 Inpatient X [facility] [id number] Univers 05:11:00 16:00:00 ity of [facility] 2020-12-11 2020-12-17 [facility] Paco Lacey 1.2.840.1 [id number] 05:11:00 16:00:00 Encounter Vika Harrison Monique [id number] [facility] 4.2.7.2.686 [id number] 2020-11-16 2020-11-16 Emergency X [facility] ERT [id number] Univers 09:31:00 09:31:00 PACO cantu of [facility] 2020-11-11 2020-11-11 Orders Doctor CUI 1.2.840.114 [id number] Univers 00:00:00 00:00:00 Only Unassigned, MONIQUE [id number] ity of [facility] 4.2.7.2.686 Jeff as [id number] [address] 2020-11-11 2020-11-11 Orders Doctor BASILIA 1.2.840.114 [id number] 00:00:00 00:00:00 Only Unassigned, MONIQUE [id number] [facility] 4.2.7.2.686 [id number] [facility] 2020-11-07 2020-11-07 Telephone [facility] [id number] [facility] 00:00:00 00:00:00 Sendsiobhan Lott [id number] ity of [place]2.7.2.686 [place] Profess[place] [phone] [address] 2020-11-07 2020-11-07 [facility] [id number] 00:00:00 00:00:00 Angi Lott [id number] [place] 4.2.7.2.686 Professio [id number] [address] 2020-10-30 2020-10-30 Orders Doctor BASILIA 1.2.840.114 [id number] [facility] 00:00:00 00:00:00 Only Unassigned, MONIQUE [id number] ity of [facility] 4.2.7.2.686 Jeff as [id number] [address] 2020-10-30 2020-10-30 Orders Doctor BASILIA 1.2.840.114 [id number] 00:00:00 00:00:00 Only Unassigned, MONIQUE [id number] [facility] 4.2.7.2.686 [id number] [facility] 2020-09-26 2020-09-26 Telephone [facility] 1.2.840.114 [id number] [facility] 00:00:00 00:00:00 [facility] [id number] i ty of CLINICS [place]2.7.2.[place] [id number] [address] 2020-09-26 2020-09-26 Telephone [facility] 1.2.840.114 [id number] 00:00:00 00:00:00 [facility] [id number] CLINICS 4.2.7.2.686 [id number] 2020-09-01 2020-09-01 Orders Doctor BASILIA 1.2.840.114 [id number] Univers 00:00:00 00:00:00 Only Unassigned, MONIQUE [id number] ity of [place] [facility] 4.2.7.2.686 Jeff as [phone] [facility] 009 Branch 2020-09-01 2020-09-01 Orders Doctor BASILIA 1.2.840.114 [id number] 00:00:00 00:00:00 Only Unassigned, MONIQUE [id number] [place] [facility] 4.2.7.2.686 [id number] 2020-08-25 2020-08-25 Transition Tuan Peters 1.2.840.114 [id number] Univers 00:00:00 00:00:00 of Care Ruchi Braswell [id number] it y of [place] 4.2.7.2.[place] [id number] [facility] 403 Branch 2020-08-25 2020-08-25 Transition Tuan Peters 1.2.840.114 [id number] 00:00:00 00:00:00 of Care Ruchi Braswell [id number] [place] 4.2.7.2.686 [id number] 403 2020-08-21 2020-08-23 [facility] 1. 2.840.114 [id number] [facility] 01:07:00 18:35:00 Encounter Mukul Gallardoy 350.1.13. 10 ity of [facility] 4.2.7.2.686 Jeff as [id number] [facility] 095 Branch 2020-08-21 2020-08-23 [facility] Ayleen 1.2.840.114 [id number] 01:07:00 18:35:00 Encounter Kelly Monique [id number] [facility] 4.2.7.2.686 [id number] Results Test Description Test Time Test Comments Results Result Comments Source POCT GLUCOSE (AUTOMATED) 2020-12-17 15:43:35 Test Item Value Reference Range Interpretation Comme nts POCT GLU (test code = 5685369127) 129 mg/dL 70-110 H Lab Interpretation (test code = 99886-3) Abnormal [facility] METABOLIC PANEL (NA, K, CL, CO2, GLUCOSE, BUN, CREATININE, CA)2020-12-17 11:45:07 Test Item Value Reference Range Interpretation Comments NA (test code = 137 mmol/L 135-145 0569709184) K (test code = 3.5 mmol/L 3.5-5.0 9144360574) CL (test code = 103 mmol/L 98-108 8174076047) CO2 TOTAL (test code = 26 mmol/L 23-31 4914781833) AGAP (test code = 2-16 6377480410) BUN (test code = 11 mg/dL 7-23 1957712522) GLUCOSE (test code = 175 mg/dL 70-110 H [id number]) CREATININE (test code = 0.62 mg/dL 0.60-1.25 3215680309) CALCIUM (test code = 9.0 mg/dL 8.6-10.6 4789652470) eGFR Calculation mL/min/1.73m2 (Non-) (test code = 9638238748) eGFR Calculation mL/min/1.73m2 () (test code = 3032994853) JAMES (test code = JAMES) Association of [...] tests). Lab Interpretation Abnormal (test code = 80140-2) [facility] WITH [id number] 11:07:27 Test Item Value Reference Range Interpretation [...] RDW-SD (test code = 45.2 fL 38.5-51.6 15314-5) RDW-CV (test code = 16.9 % 12.1-15.4 H 788-0) PLT (test code = See_Comment H [Automated 777-3) message] The sy stem which generated this result transmitted reference range : 150 - 328 10*3/ ?L. The reference r torito was not used to interpret this result as normal/abnormal . MPV (test code = 8.1 fL 9.8-13.0 L 08224-0) NRBC/100 WBC (test See_Comment [Automat ed code = 3618444527) message] The system which generated this result transmitted reference range : 0.0 - 10.0 /100 WBCs. The refer ence range was not u sed to interpret th is result as normal/abnormal . NRBC x10^3 (test code <0.01 See_Comment [Auto mated = 7341421924) message] The s ystem which generated this result transmitted reference range : 10*3/?L. The reference range was not used to interpret this result as normal/abnormal . GRAN MAT (NEUT) % 72.8 % (test code = 770-8) IMM GRAN % (test code 0.60 % = 2748331650) LYMPH % (test code = 18.4 % 736-9) MONO % (test code = 5.7 % 5905-5) EOS % (test code = 1.8 % 713-8) BASO % (test code = 0.7 % 706-2) GRAN MAT x10^3(ANC) 8.23 10*3/uL 1.99-6.95 H (test code = 4842335653) IMM GRAN x10^3 (test 0.07 10*3/uL 0.00-0.06 H code = 0383696083) LYMPH x10^3 (test code 2.08 10*3/uL 1.09-3.23 = 731-0) MONO x10^3 (test code 0.65 10*3/uL 0.36-1.02 = 742-7) EOS x10^3 (test code = 0.20 10*3/uL 0.06-0.53 711-2) BASO x10^3 (test code 0.08 10*3/uL 0.01-0.09 = 704-7) Lab Interpretation Abnormal (test code = 12502-6) [facility] GLUCOSE (AUTOMATED)2020-12-17 06:03:38 Test Item Value Reference Range Interpretation Comments POCT GLU (test code = 5804970366) 75 mg/dL 70-110 Lab Interpretation (test code = Normal 71817-6) [facility] [id number] 00:01:00 Test Item Value Reference Range Interpretation Comments VIT B6 (test code = 13.1 nmol/L 20.0-125.0 L INTERPRE TIVE 94657-6) INFORMATION: Vi tamin B6 (Pyridoxal 5-Phosphate) Pyridoxal 5'-phosphate me asured in a specimen collected follo wing an 8-hour or overnight fast accurately clara cates vitamin B6 nutritional sta tus. Non-fasting spe cimen concentration reflects recent vitamin intake. This test was develo ped and its perform ance characteristics determined by [facility]. I t has not been cleare d or approved by the [place] Food and Drug Administration. 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 Diffusemuscle atrophy and osteopenia. No acute fracture or dislocation. [facility], Radiant Results Inft User - 12/16/2020 5:58 PM CSTXR TIBIA FIBULA 2 VW LEFTINDICATION: Left lower extremity pain from knee down to ankle COMPARISON: NoneFINDINGS:Moderate to severe tricompartmental knee joint osteoarthrosis. Diffusemuscle atrophy and osteopenia. No acute fracture or dislocation.IMPRESSIONTricompartmental knee joint osteoarthrosis.[facility] GLUCOSE (AUTOMATED) 2020-12-16 23:27:00 Test Item Value Reference Range Interpretation Comments POCT GLU (test code = 3639011326) 114 mg/dL 70-110 H Lab Interpretation (test code = Abnormal 63825-2) [facility] GLUCOSE (AUTOMATED)2020-12-16 20:12:00 Test Item Value Reference Range Interpretation Comments POCT GLU (test code = 7930625757) 105 mg/dL 70-110 Lab Interpretation (test code = Normal 85982-2) [facility]2020-12-16 14:44:00 Test Item Value Reference Range Interpretation Comments POCT GLU (test code = 7796738667) 153 mg/dL 70-110 H Lab Interpretation (test code = Abnormal 17136-6) [facility] METABOLIC PANEL (NA, K, CL, CO2, GLUCOSE, BUN, CREATININE, CA)2020-12-16 14:23:00 Test Item Value Reference Range Interpretation Comments NA (test code = 138 mmol/L 135-145 3625186000) K (test code = 3.4 mmol/L 3.5-5.0 L 0082424414) CL (test code = 100 mmol/L 98-108 4297309409) CO2 TOTAL (test code = 31 mmol/L 23-31 1576232237) AGAP (test code = 2-16 6462356802) BUN (test code = 11 mg/dL 7-23 2924748941) GLUCOSE (test code = 162 mg/dL 70-110 H 5024074976) CREATININE (test code = 0.64 mg/dL 0.60-1.25 0760553035) CALCIUM (test code = 8.9 mg/dL 8.6-10.6 8620462906) eGFR Calculation mL/min/1.73m2 (Non-) (test code = 3840189285) eGFR Calculation mL/min/1.73m2 () (test code = 1464872442) JAMES (test code = JAMES) Association of [...] tests). Lab Interpretation Abnormal (test code = 16355-4) [facility] WITH [id number] 14:05:00 Test Item Value Reference Range Interpretation Comments WBC (test code = See_Comment H [Automated 8590-2) message] The sy stem which [...] RDW-SD (test code = 45.4 fL 38.5-51.6 78251-2) RDW-CV (test code = 17.0 % 12.1-15.4 H 788-0) PLT (test code = See_Comment H [Automated 777-3) message] The sy stem which generated this result transmitted reference range : 150 - 328 10*3/ ?L. The reference r torito was not used to interpret this result as normal/abnormal . MPV (test code = 8.0 fL 9.8-13.0 L 50876-1) NRBC/100 WBC (test See_Comment [Automat ed code = 8068971363) message] The system which generated this result transmitted reference range : 0.0 - 10.0 /100 WBCs. The refer ence range was not u sed to interpret th is result as normal/abnormal . NRBC x10^3 (test code <0.01 See_Comment [Auto mated = 0151789405) message] The s ystem which generated this result transmitted reference range : 10*3/?L. The reference range was not used to interpret this result as normal/abnormal . GRAN MAT (NEUT) % 70.0 % (test code = 770-8) IMM GRAN % (test code 0.70 % = 6896338092) LYMPH % (test code = 20.5 % 736-9) MONO % (test code = 7.1 % 5905-5) EOS % (test code = 1.0 % 713-8) BASO % (test code = 0.7 % 706-2) GRAN MAT x10^3(ANC) 9.44 10*3/uL 1.99-6.95 H (test code = 3873729468) IMM GRAN x10^3 (test 0.09 10*3/uL 0.00-0.06 H code = 8500605184) LYMPH x10^3 (test code 2.76 10*3/uL 1.09-3.23 = 731-0) MONO x10^3 (test code 0.96 10*3/uL 0.36-1.02 = 742-7) EOS x10^3 (test code = 0.13 10*3/uL 0.06-0.53 711-2) BASO x10^3 (test code 0.10 10*3/uL 0.01-0.09 H = 704-7) Lab Interpretation Abnormal (test code = 95886-3) [facility] Center[facility] - Peripheral # [id number] 13:01:00 Test Item Value Reference Range Interpretation Comments Blood Culture-Aerobic No organisms No growth Previo us (test code = 77002-4) isolated prelim inary verified result was Culture In Progress on 12/11/2020 at 100 1 CSTPrevious preliminary verified result was No growth a t 24 hours on 12/12/2020 at 070 1 CSTPrevious preliminary verified result was No growth a t 48 hours on 12/13/2020 at 070 1 CSTPrevious preliminary verified result was No growth a t 72 hours on 12/14/2020 at 070 1 [employer] Blood No organisms No growth Previous Culture-Anaerobic isolated preliminar y (test code = 60338-6) verifi ed result was Culture In Progress on 12/11/2020 at 100 1 CSTPrevious preliminary verified result was No growth a t 24 hours on 12/12/2020 at 070 1 CSTPrevious preliminary verified result was No growth a t 48 hours on 12/13/2020 at 070 1 CSTPrevious preliminary verified result was No growth a t 72 hours on 12/14/2020 at 070 1 [employer] Lab Interpretation Normal (test code = 43053-9) [facility] # [id number] 13:01:00 Test Item Value Reference Range Interpretation Comments Blood Culture-Aerobic No organisms No growth Previo us (test code = 24894-8) isolated prelim inary verified result was Culture In Progress on 12/11/2020 at 100 1 CSTPrevious preliminary verified result was No growth a t 24 hours on 12/12/2020 at 070 1 CSTPrevious preliminary verified result was No growth a t 48 hours on 12/13/2020 at 070 1 CSTPrevious preliminary verified result was No growth a t 72 hours on 12/14/2020 at 070 1 [employer] Blood No organisms No growth Previous Culture-Anaerobic isolated preliminar y (test code = 41185-1) verifi ed result was Culture In Progress on 12/11/2020 at 100 1 CSTPrevious preliminary verified result was No growth a t 24 hours on 12/12/2020 at 070 1 CSTPrevious preliminary verified result was No growth a t 48 hours on 12/13/2020 at 070 1 CSTPrevious preliminary verified result was No growth a t 72 hours on 12/14/2020 at 070 1 [employer] Lab Interpretation Normal (test code = 95946-3) [facility] GLUCOSE (AUTOMATED)2020-12-16 04:01:00 Test Item Value Reference Range Interpretation Comments POCT GLU (test code = 3055987048) 156 mg/dL 70-110 H Lab Interpretation (test code = Abnormal 53568-3) [facility] GLUCOSE (AUTOMATED)2020-12-16 00:24:00 Test Item Value Reference Range Interpretation Comments POCT GLU (test code = 9237225206) 115 mg/dL 70-110 H Lab Interpretation (test code = Abnormal 14640-9) [facility] CHEST PULMONARY [id number] 23:34:55No pulmonary emboli. No interval change in [...] stableappearance of intra and extrahepatic biliary ductal dilatation.[facility] GLUCOSE (AUTOMATED)2020-12-15 19:28:00 Test Item Value Reference Range Interpretation Comments POCT GLU (test code = 0755122794) 140 mg/dL 70-110 H Lab Interpretation (test code = Abnormal 96553-4) [facility] 15:26:00 Test Item Value Reference Range Interpretation Comments MAGNESIUM (test code = 2726961358) 2.2 mg/dL 1.7-2.4 Lab Interpretation (test code = Normal 97535-1) [facility] GLUCOSE (AUTOMATED)2020-12-15 15:15:00 Test Item Value Reference Range Interpretation Comments POCT GLU (test code = 6999065326) 181 mg/dL 70-110 H Lab Interpretation (test code = Abnormal 09118-9) [facility] (NA, K, CL, CO2, GLUCOSE, BUN, CREATININE, CA)2020-12-15 13:07:00 Test Item Value Reference Range Interpretation Comments NA (test code = 136 mmol/L 135-145 1080588657) K (test code = 3.6 mmol/L 3.5-5.0 3292561379) CL (test code = 96 mmol/L 98-108 L 6886109032) CO2 TOTAL (test code = 29 mmol/L 23-31 0689457842) AGAP (test code = 2-16 3042083783) BUN (test code = 12 mg/dL 7-23 0319033630) GLUCOSE (test code = 183 mg/dL 70-110 H 7241142184) CREATININE (test code = 0.70 mg/dL 0.60-1.25 0310450752) CALCIUM (test code = 9.2 mg/dL 8.6-10.6 2453364571) eGFR Calculation mL/min/1.73m2 (Non-) (test code = 0060704900) eGFR Calculation mL/min/1.73m2 () (test code = 3571436404) JAMES (test code = JAMES) Association of [...] tests). Lab Interpretation Abnormal (test code = 94205-7) [facility] WITH [id number] 12:32:00 Test Item Value Reference Range Interpretation Comments WBC (test code = See_Comment H [Automated 9090-2) message] The system which generated this result [...] RDW-SD (test code = 44.4 fL 38.5-51.6 71302-8) RDW-CV (test code = 17.7 % 12.1-15.4 H 788-0) PLT (test code = See_Comment H [Automated 777-3) message] The system which generated this result transmit ronan reference range : 150 - 328 10*3/ ?L. The reference range was not u sed to interpret th is result as normal/abnormal . MPV (test code = 8.1 fL 9.8-13.0 L 50264-2) NRBC/100 WBC (test See_Comment [Automat ed code = 4479680195) message] The system which generated this result transmit ronan reference range : 0.0 - 10.0 /100 WBCs. The reference range was not used to interpret this result as normal/abnormal . NRBC x10^3 (test code <0.01 See_Comment [Auto mated = 2213070782) message] The system which generated this result transmit ronan reference range : 10*3/?L. The reference range was not used to interpret this result as normal/abnormal . GRAN MAT (NEUT) % 74.5 % (test code = 770-8) IMM GRAN % (test code 0.70 % = 2435896984) LYMPH % (test code = 17.4 % 736-9) MONO % (test code = 6.8 % 5905-5) EOS % (test code = 0.2 % 713-8) BASO % (test code = 0.4 % 706-2) GRAN MAT x10^3(ANC) 11.99 10*3/uL 1.99-6.95 H (test code = 5434627892) IMM GRAN x10^3 (test 0.11 10*3/uL 0.00-0.06 H code = 9280819120) LYMPH x10^3 (test code 2.80 10*3/uL 1.09-3.23 = 731-0) MONO x10^3 (test code 1.10 10*3/uL 0.36-1.02 H = 742-7) EOS x10^3 (test code = 0.03 10*3/uL 0.06-0.53 L 711-2) BASO x10^3 (test code 0.06 10*3/uL 0.01-0.09 = 704-7) Lab Interpretation Abnormal (test code = 64848-4) [facility] GLUCOSE (AUTOMATED)2020-12-15 04:16:00 Test Item Value Reference Range Interpretation Comments POCT GLU (test code = 8969421183) 200 mg/dL 70-110 H Lab Interpretation (test code = Abnormal 89826-0) [facility] (THIAMINE), WHOLE [id number] 00:30:00 Test Item Value Reference Range Interpretation Comments Vitamin B1, Whole 136 nmol/L 70-180 INTERPRETI VE INFORMATION: Blood (test code = Vitamin B 1, Whole Blood 80417-7) This assay júnior ures the concentration o [...] for clinical purposes.Perfor med By: [employer] [place] [address] [id number] aboratory Director: Namrata Klein MD [facility] GLUCOSE (AUTOMATED)2020-12-14 23:35:00 Test Item Value Reference Range Interpretation Comments POCT GLU (test code = 1545728150) 151 mg/dL 70-110 H Lab Interpretation (test code = Abnormal 16506-0) [facility] GLUCOSE (AUTOMATED)2020-12-14 19:19:00 Test Item Value Reference Range Interpretation Comments POCT GLU (test code = 8915752429) 193 mg/dL 70-110 H Lab Interpretation (test code = Abnormal 41794-7) [facility] GLUCOSE (AUTOMATED)2020-12-14 15:22:00 Test Item Value Reference Range Interpretation Comments POCT GLU (test code = 2541754490) 221 mg/dL 70-110 H Lab Interpretation (test code = Abnormal 02852-7) [facility] GLUCOSE (AUTOMATED)2020-12-14 02:37:00 Test Item Value Reference Range Interpretation Comments POCT GLU (test code = 0044546820) 210 mg/dL 70-110 H Lab Interpretation (test code = Abnormal 16389-2) [facility] GLUCOSE (AUTOMATED)2020-12-13 23:33:00 Test Item Value Reference Range Interpretation Comments POCT GLU (test code = 7592013380) 182 mg/dL 70-110 H Lab Interpretation (test code = Abnormal 94824-3) [facility] GLUCOSE (AUTOMATED)2020-12-13 18:09:00 Test Item Value Reference Range Interpretation Comments POCT GLU (test code = 5593274628) 150 mg/dL 70-110 H Lab Interpretation (test code = Abnormal 31912-3) [facility] METABOLIC PANEL (NA, K, CL, CO2, GLUCOSE, BUN, CREATININE, CA)2020-12-13 16:27:00 Test Item Value Reference Range Interpretation Comments NA (test code = 136 mmol/L 135-145 6691569900) K (test code = 3.7 mmol/L 3.5-5.0 3514534244) CL (test code = 96 mmol/L 98-108 L 5931559535) CO2 TOTAL (test code = 29 mmol/L 23-31 2496848069) AGAP (test code = 2-16 3892901208) BUN (test code = 6 mg/dL 7-23 L 3023654092) GLUCOSE (test code = 212 mg/dL 70-110 H 9043160765) CREATININE (test code = 0.61 mg/dL 0.60-1.25 7089990103) CALCIUM (test code = 9.5 mg/dL 8.6-10.6 2507518690) eGFR Calculation mL/min/1.73m2 (Non-) (test code = 9435761607) eGFR Calculation mL/min/1.73m2 () (test code = 2848745444) JAMES (test code = JAMES) Association of [...] tests). Lab Interpretation Abnormal (test code = 89161-3) [facility] WITH [id number] 16:10:00 Test Item Value Reference Range Interpretation Comments WBC (test code = See_Comment H [Automated 6090-2) message] The sy stem which generated this result transmitted reference range : 4.20 - 10.70 10*3/?L. The reference range was not used to interpret this result as normal/abnormal . RBC (test code = See_Comment H [Automated 039-8) message] The sy stem which [...] RDW-SD (test code = 43.3 fL 38.5-51.6 71608-1) RDW-CV (test code = 16.2 % 12.1-15.4 H 788-0) PLT (test code = See_Comment H [Automated 777-3) message] The sy stem which generated this result transmitted reference range : 150 - 328 10*3/ ?L. The reference r torito was not used to interpret this result as normal/abnormal . MPV (test code = 8.2 fL 9.8-13.0 L 45018-9) NRBC/100 WBC (test See_Comment [Automat ed code = 4627536934) message] The system which generated this result transmitted reference range : 0.0 - 10.0 /100 WBCs. The refer ence range was not u sed to interpret th is result as normal/abnormal . NRBC x10^3 (test code <0.01 See_Comment [Auto mated = 5892029710) message] The s ystem which generated this result transmitted reference range : 10*3/?L. The reference range was not used to interpret this result as normal/abnormal . GRAN MAT (NEUT) % 86.2 % (test code = 770-8) IMM GRAN % (test code 0.70 % = 6578899298) LYMPH % (test code = 10.2 % 736-9) MONO % (test code = 2.5 % 5905-5) EOS % (test code = 0.1 % 713-8) BASO % (test code = 0.3 % 706-2) GRAN MAT x10^3(ANC) 9.61 10*3/uL 1.99-6.95 H (test code = 4025444994) IMM GRAN x10^3 (test 0.08 10*3/uL 0.00-0.06 H code = 0839944677) LYMPH x10^3 (test code 1.14 10*3/uL 1.09-3.23 = 731-0) MONO x10^3 (test code 0.28 10*3/uL 0.36-1.02 L = 742-7) EOS x10^3 (test code = <0.03 0.06-0.53 L 711-2) BASO x10^3 (test code 0.03 10*3/uL 0.01-0.09 = 704-7) Lab Interpretation Abnormal (test code = 69821-5) [facility]2020-12-13 14:16:00 Test Item Value Reference Range Interpretation Comments POCT GLU (test code = 1793365538) 236 mg/dL 70-110 H Lab Interpretation (test code = Abnormal 22925-6) [facility] COVID [id number] 04:58:00COVID DMT InterpretationInterpretation/Recommendations: Molecular NAAT Tests for [...] develops COVID-19 illness in the future, testing forIgM and IgG antibodies approximately 3 weeks after illness onset will likely indicate if the patienthas produced antibodies to the SARS-CoV-2 virus. However, [...] COVID-19 testing the patient has had at [facility], including molecular NAAT testing (more commonly known asPCR testing and Rapid ID Now testing) and antibody testing. It does not take into account any testing that a patient has had outside of the [facility] medical record. [facility] LABORATORY SERVICESCOVID ResultsSARS -CoV-2 Rapid ID NOW (no units) ? ? Date ? Value ? 12/11/2020 ? Not Detected ? ? ? 11/16/2020 ? Not Detected ? ? ? 08/21/2020 ? Not Detected ? [facility]Un[facility]2020-12-13 03:11:00 Test Item Value Reference Range Interpretation Comments POCT GLU (test code = 0016984236) 171 mg/dL 70-110 H Lab Interpretation (test code = Abnormal 97482-1) [facility] GLUCOSE (AUTOMATED)2020-12-13 00:00:00 Test Item Value Reference Range Interpretation Comments POCT GLU (test code = 9627832313) 118 mg/dL 70-110 H Lab Interpretation (test code = Abnormal 01441-0) [facility] GLUCOSE (AUTOMATED)2020-12-12 20:29:00 Test Item Value Reference Range Interpretation Comments POCT GLU (test code = 2788773460) 173 mg/dL 70-110 H Lab Interpretation (test code = Abnormal 97124-0) [facility] Center[facility] A[facility]OMEN [id number] 19:56:17 1. ?Hepatic steatosis. However, limited evaluation [...] main portal veinwasevaluated with color Doppler imaging. [employer] images were obtainedfor the record. COMPARISON: Ultrasound [...] normal where visualized. SPLEEN:No images were obtained. [facility], Radiant Results Inft User - 12/12/2020 1:57 PM CSTEXAM: USABDOMEN LIMITEDHISTORY: 70 years-old male with RUQ ultrasound to assess for common bileduct dilation.TECHNIQUE: Limited abdominal ultrasound focused on the liver, biliarysystem, pancreas, and spleen was performed. The main portal vein wasevaluated with color Doppler imaging. [employer] images were obtainedfor the record.COMPARISON: Ultrasound abdomen 11/17/2028. And CT chest 11/17/2020.FINDINGS: Exam is limited due to patient's body habitus.PANCREAS: The visualized portions of the pancreas is unrema rkable.AORTA:No images were obtained. LIVER:Length: The liver is normal in size, and measures 15.6 cm in thecraniocaudal dimension.Parenchyma: Echogenic liver parenchyma. No focal lesion is detected.Portal vein: Hepatopetal flow is present in the main portal vein.MPV diameter: measures 0.6 cm in the AP dimension.BILE DUCTS:No intra- or extrahepatic biliary dilatation is visualized.The common bile duct diameter is normal, and measures 0.5 cm.GALLBLADDER:The gallbladder is nonvisualized. IVC:The IVC appears normal where visualized. SPLEEN:No images were obtained.IMPRESSION1. Hepatic steatosis. However, limited evaluation of the liver on theseimages.2. CBD is normal and measures 0.5 cm.Preliminary Report Dictated by Resident: Mickey Neal MD., have reviewed this study and agreewith the abovereport.[facility]2020-12-12 19:24:00 Test Item Value Reference Range Interpretation Comments POCT GLU (test code = 4270340575) 230 mg/dL 70-110 H Lab Interpretation (test code = Abnormal 01596-6) [facility] CHEST 1 [id number] 15:16:46 Low lung volumes with mild perihilar [...] reviewed this study and agree with theabove report.[facility]2020-12-12 14:34:00 Test Item Value Reference Range Interpretation Comments POCT GLU (test code = 6902831510) 225 mg/dL 70-110 H Lab Interpretation (test code = Abnormal 99147-0) [facility] CenterURINE [id number] 13:28:00 Test Item Value Reference Range Interpretation Comments URINE CULTURE (test < 10,000 CFU/mL mixed code = 630-4) aerobic organisms - suggests endogenous microbial contamination [facility] (NA, K, CL, CO2, GLUCOSE, BUN, CREATININE, CA)2020-12-12 10:05:00 Test Item Value Reference Range Interpretation Comments NA (test code = 136 mmol/L 135-145 1456015837) K (test code = 3.5 mmol/L 3.5-5.0 8848761778) CL (test code = 100 mmol/L 98-108 3705905165) CO2 TOTAL (test code = 31 mmol/L 23-31 4691828590) AGAP (test code = 2-16 9265846730) BUN (test code = 7 mg/dL 7-23 9437857001) GLUCOSE (test code = 259 mg/dL 70-110 H 5367984025) CREATININE (test code = 0.63 mg/dL 0.60-1.25 4701521355) CALCIUM (test code = 8.5 mg/dL 8.6-10.6 L 8124708875) eGFR Calculation mL/min/1.73m2 (Non-) (test code = 5487780971) eGFR Calculation mL/min/1.73m2 () (test code = 5787957786) JAMES (test code = JAMES) Association of [...] tests). Lab Interpretation Abnormal (test code = 75307-2) [facility] CenterMagnesium [id number] 10:05:00 Test Item Value Reference Range Interpretation Comments MAGNESIUM (test code = 2517875004) 1.9 mg/dL 1.7-2.4 Lab Interpretation (test code = Normal 60128-7) [facility] with [id number] 09:48:00 Test Item Value Reference Range Interpretation Comments WBC (test code = See_Comment [Automated 2431-2) message] The sy stem which generated this [...] RDW-SD (test code = 46.0 fL 38.5-51.6 50101-7) RDW-CV (test code = 16.1 % 12.1-15.4 H 788-0) PLT (test code = See_Comment H [Automated 777-3) message] The sy stem which generated this result transmitted reference range : 150 - 328 10*3/ ?L. The reference r torito was not used to interpret this result as normal/abnormal . MPV (test code = 8.6 fL 9.8-13.0 L 19535-5) NRBC/100 WBC (test See_Comment [Automat ed code = 5595300370) message] The system which generated this result transmitted reference range : 0.0 - 10.0 /100 WBCs. The refer ence range was not u sed to interpret th is result as normal/abnormal . NRBC x10^3 (test code <0.01 See_Comment [Auto mated = 7934380785) message] The s ystem which generated this result transmitted reference range : 10*3/?L. The reference range was not used to interpret this result as normal/abnormal . GRAN MAT (NEUT) % 70.2 % (test code = 770-8) IMM GRAN % (test code 0.30 % = 6870911697) LYMPH % (test code = 18.8 % 736-9) MONO % (test code = 5.0 % 5905-5) EOS % (test code = 5.2 % 713-8) BASO % (test code = 0.5 % 706-2) GRAN MAT x10^3(ANC) 6.05 10*3/uL 1.99-6.95 (test code = 9653584059) IMM GRAN x10^3 (test 0.03 10*3/uL 0.00-0.06 code = 7925629070) LYMPH x10^3 (test code 1.62 10*3/uL 1.09-3.23 = 731-0) MONO x10^3 (test code 0.43 10*3/uL 0.36-1.02 = 742-7) EOS x10^3 (test code = 0.45 10*3/uL 0.06-0.53 711-2) BASO x10^3 (test code 0.04 10*3/uL 0.01-0.09 = 704-7) Lab Interpretation Abnormal (test code = 22154-6) [facility] GLUCOSE (AUTOMATED)2020-12-12 03:42:00 Test Item Value Reference Range Interpretation Comments POCT GLU (test code = 196 mg/dL 70-110 H Notifi ed Provider [id number]) Lab Interpretation (test Abnormal code = 11156-7) [facility] Test Item Value Reference Range Interpretation Comments FOLATE SER (test code = 5168455844) 5.8 ng/mL 3.0-20.0 Lab Interpretation (test code = Normal 44480-8) [facility] B12, [id number] 00:55:00 Test Item Value Reference Range Interpretation Comments VIT B12 (test code = 844 pg/mL 240-930 8907437148) JAMES (test code = JAMES) Biotin has been reported to cause a positive bias, interpret results relative to patient's use of biotin. Lab Interpretation (test Normal code = 81830-0) [facility]2020-12-12 00:14:00 Test Item Value Reference Range Interpretation Comments POCT GLU (test code = 5193545138) 164 mg/dL 70-110 H Lab Interpretation (test code = Abnormal 21866-9) [facility] CenterCREATINE [id number] 23:42:00 Test Item Value Reference Range Interpretation Comments CK (test code = 3601532701) <20 33-194 L Lab Interpretation (test code = Abnormal 03093-6) [facility] CenterTHYROID STIMULATING [id number] 23:17:00 Test Item Value Reference Range Interpretation Comments TSH (test code = See_Comment Biotin has been 6505428796) reported to cau se a negative bias, interpret resul ts relative to pat sanju's use of biotin. [Automated mess age] The system [employer] generated this result transmitted ref erence range: 0.45 - 4 .70 mIU/L. The refe rence range was not u sed to interpret this result as normal/abnor mal. Lab Interpretation (test Normal code = 66126-4) [facility] CenterXR HIPS 3 VW [id number] 21:41:53No appreciable fracture lines. RL: 6200 ICAL [...] No osseous erosions.IMPRESSIONNo appreciable fracture lines.RL: 6200 UnPerm[facility] CenterPROCALCITONIN2021-03-01 20:00:00 Test Item Value Reference Range Interpretation Comments Procalcitonin (test 0.13 ng/mL <0.07 H code = 7501121620) JAMES (test code = JAMES) INTERPRETATION OF [...] biotics/default.asp Lab Interpretation Abnormal (test code = 41744-1) [facility]2020-12-11 19:07:00 Test Item Value Reference Range Interpretation Comments POCT GLU (test code = 4437367002) 274 mg/dL 70-110 H Lab Interpretation (test code = Abnormal 87676-1) [facility] CenterMAGNESIUM2021-03-01 18:31:00 Test Item Value Reference Range Interpretation Comments MAGNESIUM (test code = 9287378410) 1.9 mg/dL 1.7-2.4 Lab Interpretation (test code = Normal 38865-2) [facility] CenterFERRITIN [id number] 18:31:00 Test Item Value Reference Range Interpretation Comments FERRITIN (test code = 178.0 ng/mL 18.0-464.0 8233179854) JAMES (test code = JAMES) Biotin has been reported to cause a negative bias, interpret results relative to patient's use of biotin. Lab Interpretation (test Normal code = 10092-6) [facility] HEAD WO [id number] 14:36:47 No acute intracranial abnormality. Dilated ventricles [...] reviewed this study and agree with the abovereport.[facility] CenterURINALYSIS2021-03-01 14:28:00 Test Item Value Reference Range Interpretation Comments APPEARANCE (test code = Clear Clear 0906650944) COLOR (test code = Yellow Yellow 4614550096) PH (test code = 4.8-8.0 1294342821) SP GRAVITY (test code = 1.003-1.030 3279871037) GLU U QUAL (test code = 500 mg/dL Normal A 1222277363) BLOOD (test code = Negative Negative 8496864237) KETONES (test code = 5 mg/dL Negative A 1750371022) PROTEIN (test code = Negative Negative 2887-8) UROBILIN (test code = Normal Normal 5986805485) BILIRUBIN (test code = Negative Negative 8021406247) NITRITE (test code = Negative Negative 5837941262) LEUK RYAN (test code = Negative Negative 3712443300) RBC/HPF (test code = See_Comment [Autom ated message] 8359338703) The system Howcast generated this result transmit ronan reference range : 0 - 3 HPF. The refe rence range was not u sed to interpret th is result as normal/abnormal . WBC/HPF (test code = See_Comment [Autom ated message] 9115180913) The system How[employer] generated this result transmit ronan reference range : 0 - 5 HPF. The refe rence range was not u sed to interpret th is result as normal/abnormal . BACTERIA (test code = Negative Negative 7075705194) MUCOUS (test code = Slight Negative LPF A 9255277029) SQ EPITH (test code = HPF 8064723649) Lab Interpretation (test Abnormal code = 81096-3) [facility] CenterCOVID[facility] (ID NOW RAPID TESTING)2020-12-11 13:10:00 Test Item Value Reference Range Interpretation Comments SARS-CoV-2 Rapid ID NOW Not Detected Not Detected (test code = 55997-0) JAMES (test code = JAMES) ID NOW COVID-19 Assay is an isothermal nucleic acid amplification test intended for the qualitative detection of nucleic acid from SARS-CoV-2 viral RNA in nasopharyngeal ([employer]) specimens. It is used under Emergency [...] indicated. Lab Interpretation Normal (test code = 95123-5) [facility]. METABOLIC PANEL (67661)2020-12-11 12:29:00 Test Item Value Reference Range Interpretation Comments NA (test code = 136 mmol/L 135-145 2283601514) K (test code = 3.5 mmol/L 3.5-5.0 4465624247) CL (test code = 95 mmol/L 98-108 L 6318207298) CO2 TOTAL (test code = 35 mmol/L 23-31 H 1094224798) AGAP (test code = 2-16 2530115613) BUN (test code = 9 mg/dL 7-23 9252487542) GLUCOSE (test code = 329 mg/dL 70-110 H 2481582562) CREATININE (test code = 0.72 mg/dL 0.60-1.25 7102358893) TOTAL BILI (test code = 0.6 mg/dL 0.1-1.2 2558357782) CALCIUM (test code = 9.0 mg/dL 8.6-10.6 9589377068) T PROTEIN (test code = 6.8 g/dL 6.3-8.2 8437891873) ALBUMIN (test code = 3.8 g/dL 3.5-5.0 2042880355) ALK PHOS (test code = 288 U/L 34-122 H 3522173877) ALTv (test code = 46 U/L 5-50 1742-6) AST(SGOT) (test code = 38 U/L 13-40 5618826681) eGFR Calculation mL/min/1.73m2 (Non-) (test code = 4864159722) eGFR Calculation mL/min/1.73m2 () (test code = 1753232847) JAMES (test code = JAMES) Association of [...] tests). Lab Interpretation Abnormal (test code = 19366-2) [facility] CenterLactic Acid Whole Resan3630-83-55 12:23:00 Test Item Value Reference Range Interpretation Comments LACTIC ACID (test code = 2.09 mmol/L 0.50-2.20 9846992157) Lab Interpretation (test code = Normal 71908-0) [facility] WITH [id number] 12:17:00 Test Item Value Reference Range Interpretation Comments WBC (test code = See_Comment H [Automated 8109-2) message] The sy stem which generated this result transmitted reference range : 4.20 - 10.70 10*3/?L. The reference range was not used to interpret this result as normal/abnormal . RBC (test code = See_Comment [Automated 478-8) message] The sy stem which generated this [...] RDW-SD (test code = 44.9 fL 38.5-51.6 51443-7) RDW-CV (test code = 15.9 % 12.1-15.4 H 788-0) PLT (test code = See_Comment H [Automated 777-3) message] The sy stem which generated this result transmitted reference range : 150 - 328 10*3/ ?L. The reference r torito was not used to interpret this result as normal/abnormal . MPV (test code = 8.3 fL 9.8-13.0 L 59920-5) NRBC/100 WBC (test See_Comment [Automat ed code = 0984055103) message] The system which generated this result transmitted reference range : 0.0 - 10.0 /100 WBCs. The refer ence range was not u sed to interpret th is result as normal/abnormal . NRBC x10^3 (test code <0.01 See_Comment [Auto mated = 8115324357) message] The s ystem which generated this result transmitted reference range : 10*3/?L. The reference range was not used to interpret this result as normal/abnormal . GRAN MAT (NEUT) % 77.9 % (test code = 770-8) IMM GRAN % (test code 0.50 % = 8865522336) LYMPH % (test code = 12.2 % 736-9) MONO % (test code = 5.2 % 5905-5) EOS % (test code = 3.7 % 713-8) BASO % (test code = 0.5 % 706-2) GRAN MAT x10^3(ANC) 9.57 10*3/uL 1.99-6.95 H (test code = 3177789642) IMM GRAN x10^3 (test 0.06 10*3/uL 0.00-0.06 code = 5345431046) LYMPH x10^3 (test code 1.50 10*3/uL 1.09-3.23 = 731-0) MONO x10^3 (test code 0.64 10*3/uL 0.36-1.02 = 742-7) EOS x10^3 (test code = 0.46 10*3/uL 0.06-0.53 711-2) BASO x10^3 (test code 0.06 10*3/uL 0.01-0.09 = 704-7) Lab Interpretation Abnormal (test code = 10890-1) [facility] CenterLAB ONLY COVID [id number] 18:43:00COVID DMT InterpretationInterpretation/Recommendations: Molecular NAAT Test Results [...] a nasopharyngeal sample, there is approximately a ofm-yh-evsfy chance that the patient was infected and [...] from the [facility] medical recordincluding both current and prior COVID-19 related testing results for the following tests offered atour institution:A. Tests for the Identification of SARS-CoV-2 RNA:SARS-CoV-2 PCR assays including Ringold Aptima, Ringold Fusion, Barrett RealTime, and Ecochlor Xpert Xpress. SARS-CoV-2 Rapid ID NOW by the ID NOW assay. ? B. Tests for the Identification of SARS-CoV-2 Antibodies: Chemiluminescent immunoassays including Access SARS-CoV-2 IgM (DXI 600), VITROS Zsko-BHNR-LoI-2 IgG (Vitros 5600 and Vitros 3600), and Barrett SARS-CoV-2 IgG (ETL DATABASE DEVELOPER I System). These interpretation comments assume that only the above testing was utilized and that the approved acceptable specimen type(s) were used for a given test. These interpretations are autopopulated into [employer] based on computerized algorithms matching an interpretation code number to the patient's set of test results. While a clinical pathologist evaluates the combinations for clinical accuracy, clinical correlation is recommended as it may not take into account very remote prior testing. Furthermore, it does not consider testing a patient may have had outside of the [facility] system. Additionally, it should be noted that the computerized algorithm treats the results for PCR testing and Rapid ID NOW testing (also PCR) synonymously, and thus, refers to both testing methodologies as PCR tests. Given that the sensitivity of [facility]'s Rapid ID NOW testing platform [...] pathogen panel may be beneficialin this setting. [facility] LABORATORY SERVICESCOVID VukbjgcVOPI-HcB-0 Rapid ID NOW (no units) ? ? Date ? Value ? 08/21/2020 ? Not Detected ? [facility] LABORATORY SERVICESUnPerm[facility] CenterPOCT GLUCOSE (AUTOMATED)2020-08-23 18:25:00 Test Item Value Reference Range Interpretation Comments POCT GLU (test code = 7882585258) 297 mg/dL 70-110 H Lab Interpretation (test code = Abnormal 62994-4) [facility] CenterPO[facility] (AUT[facility]ATED)2020-08-23 14:25:00 Test Item Value Reference Range Interpretation Comments POCT GLU (test code = 0795836172) 181 mg/dL 70-110 H Lab Interpretation (test code = Abnormal 77104-4) [facility] Metabolic Panel (NA, K, CL, CO2, GLUCOSE, BUN, CREATININE, CA)2020-08-23 11:45:00 Test Item Value Reference Range Interpretation Comments NA (test code = 132 mmol/L 135-145 L 0518910303) K (test code = 4.0 mmol/L 3.5-5 9204957493) CL (test code = 96 mmol/L 98-108 L 0867482237) CO2 TOTAL (test code = 33 mmol/L 23-31 H 1852126366) AGAP (test code = 2-16 1618630436) BUN (test code = 9 mg/dL 7-23 6606842434) GLUCOSE (test code = 176 mg/dL 70-110 H 9673772952) CREATININE (test code = 0.66 mg/dL 0.6-1.25 0275975714) CALCIUM (test code = 8.5 mg/dL 8.6-10.6 L 1264463032) eGFR Calculation mL/min/1.73m2 (Non-) (test code = 0716874583) eGFR Calculation mL/min/1.73m2 () (test code = 1615339860) JAMES (test code = JAMES) Association of [...] tests). Lab Interpretation Abnormal (test code = 52629-9) [facility] CenterMagnesium Brrmm6485-87-47 11:45:00 Test Item Value Reference Range Interpretation Comments MAGNESIUM (test code = 7712950308) 2.0 mg/dL 1.7-2.4 Lab Interpretation (test code = Normal 95340-8) [facility] with Wbbcdptmcral4130-72-83 11:38:00 Test Item Value Reference Range Interpretation Comments WBC (test code = See_Comment [Automated 7790-2) message] The sy stem which generated this result transmitted reference range : 4.20 - 10.70 10*3/?L. The reference range was not used to interpret this result as normal/abnormal . RBC (test code = See_Comment [Automated 709-8) message] The sy stem which generated this [...] RDW-SD (test code = 41.8 fL 38.5-51.6 13798-9) RDW-CV (test code = 14.3 % 12.1-15.4 788-0) PLT (test code = See_Comment H [Automated 777-3) message] The sy stem which generated this result transmitted reference range : 150 - 328 10*3/ ?L. The reference r torito was not used to interpret this result as normal/abnormal . MPV (test code = 8.0 fL 9.8-13 L 28795-6) NRBC/100 WBC (test See_Comment [Automat ed code = 1385232679) message] The system which generated this result transmitted reference range : 0.0 - 10.0 /100 WBCs. The refer ence range was not u sed to interpret th is result as normal/abnormal . NRBC x10^3 (test code <0.01 See_Comment [Auto mated = 8347377622) message] The s ystem which generated this result transmitted reference range : 10*3/?L. The reference range was not used to interpret this result as normal/abnormal . GRAN MAT (NEUT) % 61.5 % (test code = 770-8) IMM GRAN % (test code 2.00 % = 3573023425) LYMPH % (test code = 25.5 % 736-9) MONO % (test code = 6.3 % 5905-5) EOS % (test code = 3.7 % 713-8) BASO % (test code = 1.0 % 706-2) GRAN MAT x10^3(ANC) 5.29 10*3/uL 1.99-6.95 (test code = 5934824389) IMM GRAN x10^3 (test 0.17 10*3/uL 0-0.06 H code = 5646774281) LYMPH x10^3 (test code 2.19 10*3/uL 1.09-3.23 = 731-0) MONO x10^3 (test code 0.54 10*3/uL 0.36-1.02 = 742-7) EOS x10^3 (test code = 0.32 10*3/uL 0.06-0.53 711-2) BASO x10^3 (test code 0.09 10*3/uL 0.01-0.09 = 704-7) Lab Interpretation Abnormal (test code = 89636-2) [facility] GLUCOSE (AUTOMATED)2020-08-23 10:22:00 Test Item Value Reference Range Interpretation Comments POCT GLU (test code = 3029939873) 164 mg/dL 70-110 H Lab Interpretation (test code = Abnormal 33678-2) [facility] GLUCOSE (AUTOMATED)2020-08-23 05:56:00 Test Item Value Reference Range Interpretation Comments POCT GLU (test code = 5700319830) 242 mg/dL 70-110 H Lab Interpretation (test code = Abnormal 08006-3) [facility] GLUCOSE (AUTOMATED)2020-08-23 03:02:00 Test Item Value Reference Range Interpretation Comments POCT GLU (test code = 5291633144) 210 mg/dL 70-110 H Lab Interpretation (test code = Abnormal 33298-2) [facility] GLUCOSE (AUTOMATED)2020-08-22 23:40:00 Test Item Value Reference Range Interpretation Comments POCT GLU (test code = 1041684544) 267 mg/dL 70-110 H Lab Interpretation (test code = Abnormal 92128-0) [facility] GLUCOSE (AUTOMATED)2020-08-22 19:08:00 Test Item Value Reference Range Interpretation Comments POCT GLU (test code = 3748602918) 191 mg/dL 70-110 H Lab Interpretation (test code = Abnormal 95685-8) [facility] GLUCOSE (AUTOMATED)2020-08-22 13:50:00 Test Item Value Reference Range Interpretation Comments POCT GLU (test code = 8724997422) 174 mg/dL 70-110 H Lab Interpretation (test code = Abnormal 66087-0) [facility] CenterURINE [id number] 12:59:00 Test Item Value Reference Range Interpretation Comments URINE CULTURE (test No aerobic growth (< code = 630-4) 1000 CFU/mL) [facility] with Qquuuuqweuqb6883-87-32 11:28:00 Test Item Value Reference Range Interpretation [...] RDW-SD (test code = 42.5 fL 38.5-51.6 45402-2) RDW-CV (test code = 14.5 % 12.1-15.4 788-0) PLT (test code = See_Comment H [Automated 777-3) message] The sy stem which generated this result transmitted reference range : 150 - 328 10*3/ ?L. The reference r torito was not used to interpret this result as normal/abnormal . MPV (test code = 8.0 fL 9.8-13 L 92963-4) NRBC/100 WBC (test See_Comment [Automat ed code = 1025983019) message] The system which generated this result transmitted reference range : 0.0 - 10.0 /100 WBCs. The refer ence range was not u sed to interpret th is result as normal/abnormal . NRBC x10^3 (test code <0.01 See_Comment [Auto mated = 9111494178) message] The s ystem which generated this result transmitted reference range : 10*3/?L. The reference range was not used to interpret this result as normal/abnormal . GRAN MAT (NEUT) % 69.1 % (test code = 770-8) IMM GRAN % (test code 2.20 % = 2264640838) LYMPH % (test code = 20.9 % 736-9) MONO % (test code = 5.8 % 5905-5) EOS % (test code = 1.0 % 713-8) BASO % (test code = 1.0 % 706-2) GRAN MAT x10^3(ANC) 6.51 10*3/uL 1.99-6.95 (test code = 5952619492) IMM GRAN x10^3 (test 0.21 10*3/uL 0-0.06 H code = 3284868348) LYMPH x10^3 (test code 1.97 10*3/uL 1.09-3.23 = 731-0) MONO x10^3 (test code 0.55 10*3/uL 0.36-1.02 = 742-7) EOS x10^3 (test code = 0.09 10*3/uL 0.06-0.53 711-2) BASO x10^3 (test code 0.09 10*3/uL 0.01-0.09 = 704-7) BASO STIPPLING (test Present A code = 703-9) BANDS (test code = Increased A 2382062236) TOXIC CHANGES (test Present A code = 803-7) Lab Interpretation Abnormal (test code = 87721-2) [facility] Metabolic Panel (NA, K, CL, CO2, GLUCOSE, BUN, CREATININE, CA)2020-08-22 11:12:00 Test Item Value Reference Range Interpretation Comments NA (test code = 135 mmol/L 135-145 5039327447) K (test code = 3.6 mmol/L 3.5-5 5722292077) CL (test code = 99 mmol/L 98-108 2052107893) CO2 TOTAL (test code = 31 mmol/L 23-31 3343804621) AGAP (test code = 2-16 9258672727) BUN (test code = 9 mg/dL 7-23 2473643079) GLUCOSE (test code = 198 mg/dL 70-110 H 3627239460) CREATININE (test code = 0.72 mg/dL 0.6-1.25 5130722510) CALCIUM (test code = 8.3 mg/dL 8.6-10.6 L 8173177242) eGFR Calculation mL/min/1.73m2 (Non-) (test code = 5955590271) eGFR Calculation mL/min/1.73m2 () (test code = 1692531696) JAMES (test code = JAMES) Association of [...] tests). Lab Interpretation Abnormal (test code = 67991-7) [facility] CenterMagnesium Zbbpm5129-85-49 11:12:00 Test Item Value Reference Range Interpretation Comments MAGNESIUM (test code = 5579006911) 2.0 mg/dL 1.7-2.4 Lab Interpretation (test code = Normal 70650-1) [facility] CenterLipid Panel (Total Cholesterol, Triglycerides, HDL) - Jregckh4896-74-02 11:12:00 Test Item Value Reference Range Interpretation Comments CHOL (test code = 155 mg/dL 120-200 7279808877) HDL (test code = 42 mg/dL >40 6378885290) HDLC RATIO (test code = See_Comment [Au tomated message] 2687657398) The system [employer] generated this result transmit ronan reference range : <=5.0. The refe rence range was not u sed to interpret th is result as normal/abnormal . TRIG (test code = 186 mg/dL 30-170 H 5010439246) LDL CHOL (test code = 76 mg/dL See_Comment [Auto mated message] 28137-6) The system [employer] generated this result transmit ronan reference range : <=160. The refe rence range was not u sed to interpret th is result as normal/abnormal . VLDL (test code = 37 mg/dL 5-60 2359493572) Lab Interpretation (test Abnormal code = 67347-5) [facility] CenterHEPATIC FUNCTION PANEL (55251) (ALB,T.PRO,BILI T,BU/BC,ALT,AST,ALK PHOS)2020-08-22 11:12:00 Test Item Value Reference Range Interpretation Comments TOTAL BILI (test code = 5915603075) 0.6 mg/dL 0.1-1.1 BILI UNCON (test code = 2773734701) 0.2 mg/dL 0.1-1.1 BILI CONJ (test code = 0330599215) 0.0 mg/dL 0-0.3 T PROTEIN (test code = 5866889043) 6.0 g/dL 6.3-8.2 L ALBUMIN (test code = 7932675644) 2.8 g/dL 3.5-5 L ALK PHOS (test code = 5134523904) 222 U/L 34-122 H ALTv (test code = 1742-6) 27 U/L 5-50 AST(SGOT) (test code = 3381576557) 30 U/L 13-40 Lab Interpretation (test code = Abnormal 33406-1) [facility] GLUCOSE (AUTOMATED)2020-08-22 10:11:00 Test Item Value Reference Range Interpretation Comments POCT GLU (test code = 2669810086) 196 mg/dL 70-110 H Lab Interpretation (test code = Abnormal 21539-0) [facility] GLUCOSE (AUTOMATED)2020-08-22 07:15:00 Test Item Value Reference Range Interpretation Comments POCT GLU (test code = 5439305034) 183 mg/dL 70-110 H Lab Interpretation (test code = Abnormal 81397-4) [facility] GLUCOSE (AUTOMATED)2020-08-22 02:30:00 Test Item Value Reference Range Interpretation Comments POCT GLU (test code = 0836469617) 295 mg/dL 70-110 H Lab Interpretation (test code = Abnormal 33193-7) [facility] GLUCOSE (AUTOMATED)2020-08-21 23:46:00 Test Item Value Reference Range Interpretation Comments POCT GLU (test code = 9867505943) 258 mg/dL 70-110 H Lab Interpretation (test code = Abnormal 84961-4) [facility] CenterC-REACTIVE RORAMIE6819-73-40 18:50:00 Test Item Value Reference Range Interpretation Comments CRP (test code = 1170278033) 15.5 mg/dL <0.8 H Lab Interpretation (test code = Abnormal 10301-8) [facility] GLUCOSE (AUTOMATED)2020-08-21 18:21:00 Test Item Value Reference Range Interpretation Comments POCT GLU (test code = 5009472985) 297 mg/dL 70-110 H Lab Interpretation (test code = Abnormal 71159-7) [facility] CenterETHANOL2020-11-09 16:24:00 Test Item Value Reference Range Interpretation Comments ALCOHOL (test code = <10 mg/dL 7622970023) JAMES (test code = Toxic Greater than or JAMES) equal to 80 mg/dL. NOTE: Whole blood values are approximately 10% to 15% lower than serum and plasma. [facility] ONLY - URINE DRUG (IMMUNOASSAY) - 4 ER [id number] 15:36:00 Test Item Value Reference Range Interpretation Comments AMPHET (test code = Negative Negative 3083336811) Cocaine Metabolite (test Negative Negative code = 4381112473) OPIATES (test code = Presumptive Positive Negative A 0103515361) THC (test code = Negative Negative 8179394015) JAMES (test code = JAMES) Urine Drug Cutoff Ranges Amphetamine: ? 1,000 ng/mLCocaine: ? 150 ng/mLOpiates: ? 300 ng/mLCannabinoids: ?50 ng/mL The results are to be used only for medical (i.e., treatment) purposes. Unconfirmed screening results must not be used for non-medical purposes (e.g., employment testing, legal testing). Lab Interpretation (test Abnormal code = 61878-6) [facility] ONLY - SYPHILIS IGG/TPJ5322-59-26 15:04:00 Test Item Value Reference Range Interpretation Comments Syphilis IgG/IgM (test Non-reactive Non-reactive code = 09862-9) JAMES (test code = JAMES) Non-reactive - No serologic evidence of T. pallidum infection. Cannot exclude incubating or early syphilis. Submit a second specimen in 2-4 weeks if syphilis is clinically suspected. Equivocal - Further testing to follow. Reactive - Further testing to follow. Lab Interpretation (test Normal code = 56638-2) [facility] CenterUrinalysis2020-11-09 14:52:00 Test Item Value Reference Range Interpretation Comments APPEARANCE (test code = Clear Clear 9402793104) COLOR (test code = Yellow Yellow 2050953307) PH (test code = 4.8-8.0 2327889993) SP GRAVITY (test code = 1.003-1.030 8571950003) GLU U QUAL (test code = 500 mg/dL Normal A 6908510926) BLOOD (test code = Negative Negative 4214096077) KETONES (test code = 20 mg/dL Negative A 7262603619) PROTEIN (test code = Negative Negative 2887-8) UROBILIN (test code = Normal Normal 3612055889) BILIRUBIN (test code = Negative Negative 2878485808) NITRITE (test code = Negative Negative 0576616716) LEUK RYAN (test code = Negative Negative 3193691073) RBC/HPF (test code = <1 See_Comment [Autom ated message] 3495202706) The system [employer] generated this result transmit ronan reference range : 0 - 3 HPF. The refe rence range was not u sed to interpret th is result as normal/abnormal . WBC/HPF (test code = See_Comment [Autom ated message] 5422984455) The system [employer] generated this result transmit ronan reference range : 0 - 5 HPF. The refe rence range was not u sed to interpret th is result as normal/abnormal . BACTERIA (test code = Negative Negative 9461872131) MUCOUS (test code = Slight Negative LPF A 1194433795) Lab Interpretation (test Abnormal code = 34973-2) [facility]RM[facility] [id number] 13:45:00 Test Item Value Reference Range Interpretation Comments APTT Patient (test code = See_Comment [ Automated message] 3173-2) The system whic h generated this result transmitted ref erence range: 26 - 36 Seconds. The re ference range was not u sed to interpret this result as normal/abnor mal. Lab Interpretation (test Normal code = 82293-9) [facility]2020-08-21 13:45:00 Test Item Value Reference Range Interpretation Comments POCT GLU (test code = 5915678197) 246 mg/dL 70-110 H Lab Interpretation (test code = Abnormal 60687-4) [facility] CenterHIV [facility]/2 AG-AB WITH [id number] 12:32:00 Test Item Value Reference Range Interpretation Comments HIV Negative Negative Semi-quantitative (test code = 42070-8) JAMES (test code = Non-reactive for HIV-1 JAMES) antigen and HIV-1/HIV-2 antibodies. ?No laboratory evidence of HIV infection. ?Repeat in 2-4 weeks if acute HIV infection is suspected. [facility] CenterCBC WITH [id number] 12:18:00 Test Item Value Reference Range Interpretation Comments WBC (test code = See_Comment [Automated 5590-2) message] The sy stem which [...] RDW-SD (test code = 44.4 fL 38.5-51.6 11620-0) RDW-CV (test code = 14.5 % 12.1-15.4 788-0) PLT (test code = See_Comment H [Automated 777-3) message] The sy stem which generated this result transmitted reference range : 150 - 328 10*3/ ?L. The reference r torito was not used to interpret this result as normal/abnormal . MPV (test code = 8.5 fL 9.8-13 L 56421-2) NRBC/100 WBC (test See_Comment [Automat ed code = 1800638945) message] The system which generated this result transmitted reference range : 0.0 - 10.0 /100 WBCs. The refer ence range was not u sed to interpret th is result as normal/abnormal . NRBC x10^3 (test code <0.01 See_Comment [Auto mated = 5320676094) message] The s ystem which generated this result transmitted reference range : 10*3/?L. The reference range was not used to interpret this result as normal/abnormal . GRAN MAT (NEUT) % 90.4 % (test code = 770-8) IMM GRAN % (test code 1.30 % = 0071796564) LYMPH % (test code = 7.1 % 736-9) MONO % (test code = 0.5 % 5905-5) EOS % (test code = 0.1 % 713-8) BASO % (test code = 0.6 % 706-2) GRAN MAT x10^3(ANC) 7.74 10*3/uL 1.99-6.95 H (test code = 1620583671) IMM GRAN x10^3 (test 0.11 10*3/uL 0-0.06 H code = 8631546041) LYMPH x10^3 (test code 0.61 10*3/uL 1.09-3.23 L = 731-0) MONO x10^3 (test code 0.04 10*3/uL 0.36-1.02 L = 742-7) EOS x10^3 (test code = <0.03 0.06-0.53 L 711-2) BASO x10^3 (test code 0.05 10*3/uL 0.01-0.09 = 704-7) POLYCHROMASIA (test 2+ See_Comment [Automa ronan code = 02939-4) message] The system which generated this result transmitted reference range : 2+. The referen ce range was not u sed to interpret th is result as normal/abnormal . BANDS (test code = Increased A 0436232482) Lab Interpretation Abnormal (test code = 22931-4) [facility] CenterPROCALCITONIN2020-11-09 11:48:00 Test Item Value Reference Range Interpretation Comments Procalcitonin (test 0.36 ng/mL <0.07 H code = 9435746678) JAMES (test code = JAMES) INTERPRETATION OF [...] biotics/default.asp Lab Interpretation Abnormal (test code = 08366-7) [facility] CenterLANJATE [id number] 10:53:00 Test Item Value Reference Range Interpretation Comments LDH (test code = 8305902122) 351 U/L 300-600 Lab Interpretation (test code = Normal 00822-2) [facility] CenterSEDIMENTATION [id number] 10:07:00 Test Item Value Reference Range Interpretation Comments ESR (test code = See_Comment H [Automated message] 2220801889) The system [employer] generated this result transmitted ref erence range: 0 - 10 m m/HR. The reference r torito was not used to interpret this result as normal/abnor mal. Lab Interpretation (test Abnormal code = 26620-8) [facility]PO[facility])2020-08-21 09:45:00 Test Item Value Reference Range Interpretation Comments POCT GLU (test code = 5784261242) 287 mg/dL 70-110 H Lab Interpretation (test code = Abnormal 09620-0) [facility] CenterGlycosylated Hemoglobin (A1C)2020-08-21 09:29:00 Test Item Value Reference Range Interpretation Comments HGB A1C (test code = 4548-4) 9.8 % 4-6 H Lab Interpretation (test code = Abnormal 07420-2) [facility] CenterCOVID-19 (ID NOW RAPID TESTING)2020-08-21 09:13:00 Test Item Value Reference Range Interpretation Comments SARS-CoV-2 Rapid ID NOW Not Detected Not Detected (test code = 09097-5) JAMES (test code = JAMES) ID NOW COVID-19 Assay is an isothermal nucleic acid amplification test intended for the qualitative detection of nucleic acid from SARS-CoV-2 viral RNA in nasopharyngeal ([employer]) specimens. It is used under Emergency [...] indicated. Lab Interpretation Normal (test code = 80363-2) [facility] CenterProthrombin Time / [id number] 08:59:00 Test Item Value Reference Range Interpretation Comments PROTIME PATIENT (test See_Comment H [Auto mated message] code = 5964-2) The system [employer] generated this result transmitted ref erence range: 10.1 - 1 2.6 Seconds. The reference range was not used to int erpret this result as normal/abnormal . INR (test code = 6301-6) Nor mal INR <1.1; Warfarin Therap eutic range 2.0 to 3. 0 or 2.5 to 3.5, dep ending upon the indica tions. Lab Interpretation (test Abnormal code = 85461-0) [facility] CenteraPTT2020-11-09 08:59:00 Test Item Value Reference Range Interpretation Comments APTT Patient (test code = See_Comment [ Automated message] 3173-2) The system [employer] generated this result transmitted ref erence range: 26 - 36 Seconds. The re ference range was not u sed to interpret this result as normal/abnor mal. Lab Interpretation (test Normal code = 95523-7) [facility] (NA, K, CL, CO2, GLUCOSE, BUN, CREATININE, CA)2020-08-21 08:52:00 Test Item Value Reference Range Interpretation Comments NA (test code = 136 mmol/L 135-145 0700422354) K (test code = 4.3 mmol/L 3.5-5 0258395881) CL (test code = 104 mmol/L 98-108 5746094002) CO2 TOTAL (test code = 24 mmol/L 23-31 9777917344) AGAP (test code = 2-16 6356634508) BUN (test code = 8 mg/dL 7-23 9208238297) GLUCOSE (test code = 308 mg/dL 70-110 H 0800762641) CREATININE (test code = 0.72 mg/dL 0.6-1.25 7965290729) CALCIUM (test code = 7.8 mg/dL 8.6-10.6 L 5181030317) eGFR Calculation mL/min/1.73m2 (Non-) (test code = 0217998424) eGFR Calculation mL/min/1.73m2 () (test code = 4279940122) JAMES (test code = JAMES) Association of [...] tests). Lab Interpretation Abnormal (test code = 25770-9) [facility] CenterHEPATIC FUNCTION PANEL (40651) (ALB,T.PRO,BILI T,BU/BC,ALT,AST,ALK PHOS)2020-08-21 08:52:00 Test Item Value Reference Range Interpretation Comments TOTAL BILI (test code = 6416855277) 0.8 mg/dL 0.1-1.1 BILI UNCON (test code = 7828217212) 0.3 mg/dL 0.1-1.1 BILI CONJ (test code = 3234463278) 0.0 mg/dL 0-0.3 T PROTEIN (test code = 7695294525) 5.7 g/dL 6.3-8.2 L ALBUMIN (test code = 2489354957) 2.7 g/dL 3.5-5 L ALK PHOS (test code = 7261755407) 245 U/L 34-122 H ALTv (test code = 1742-6) 37 U/L 5-50 AST(SGOT) (test code = 2779041360) 43 U/L 13-40 H Lab Interpretation (test code = Abnormal 33673-1) [facility]
--- NOTE | 2023-05-17 04:39 | ER ---
Nurse's Notes [facility] Name: Kiel Ngo Age: 72 yrs Sex: Male : 1950 Arrival Date: 05/17/2023 Time: 04:14 Bed 5 Private MD: Diagnosis: Pain in right leg;Other chronic pain Presentation: 05/17 04:16 Chief complaint: EMS states: RIGHT HIP PAIN RAD TO RIGHT FOOT. CHRONIC PAIN, UNABLE TO rv MANAGE BY MEDICINE AT HOME. DENIES TRAUMA. Coronavirus screen: At this time, the client does not indicate any symptoms associated with coronavirus-19. Ebola Screen: No symptoms or risks identified at this time. Initial Sepsis Screen: Does the patient meet any 2 criteria? No. Patient's initial sepsis screen is negative. Does the patient have a suspected source of infection? No. Patient's initial sepsis screen is negative. Risk Assessment: Do you want to hurt yourself or someone else? Patient reports no desire to harm self or others. Onset of symptoms is unknown. 04:16 Method Of Arrival: EMS: [facility] rv 04:16 Acuity: JOZEF 3 rv Triage Assessment: 04:20 General: Appears comfortable, Behavior is calm, cooperative. Pain: Complains of pain in rv RIGHT HIP, RIGHT LEG, RIGHT FOOT. Neuro: Level of Consciousness is awake, alert, obeys commands, Oriented to person, place, time, situation. Cardiovascular: Capillary refill < 3 seconds. Respiratory: Airway is patent Respiratory effort is even, unlabored. GI: No signs and/or symptoms were reported involving the gastrointestinal system. : No signs and/or symptoms were reported regarding the genitourinary system. Derm: Skin is intact. Musculoskeletal: Range of motion: intact in all extremities. Historical: - Allergies: 04:18 Demerol; rv 04:18 metformin; rv 04:18 Morphine; rv - PMHx: 04:18 Atrial fibrillation; chronic back pain; Chronic right leg pain; neuropathy; rv - PSHx: 04:18 back sx; PANCREAS SX; rv - Immunization history:: Adult Immunizations unknown. - Social history:: Smoking status: unknown. - Family history:: not pertinent. Screenin:21 [facility] ED Fall Risk Assessment (Adult) History of falling in the last 3 months, rv including since admission No falls in past 3 months (0 pts) Confusion or Disorientation No (0 pts) Intoxicated or Sedated No (0 pts) Impaired Gait No (0 pts) Mobility Assist Device Used No (0 pt) Altered Elimination No (0 pt) Score/Fall Risk Level 0 - 2 = Low Risk Oriented to surroundings, Maintained a safe environment, Educated pt \T\ family on fall prevention, incl call for assistance when getting out of bed, Assessed \T\ reinforced patient's understanding of fall precautions, Provided non-skid footwear, Hourly rounding (assess needs \T\ fall precautionary measures) done, Used ambulatory aids as needed (educated on \T\ assisted with), Used gait belt as appropriate. Abuse screen: Denies threats or abuse. Denies injuries from another. Nutritional screening: No deficits noted. Tuberculosis screening: No symptoms or risk factors identified. Assessment: 06:25 Reassessment: Patient appears in no apparent distress at this time. Patient is alert, rv oriented x 3, equal unlabored respirations, skin warm/dry/pink. Vital Signs: 04:16 BP 110 / 61; Pulse 90; Resp 19; Temp 98.7; Pulse Ox 99% ; Weight 104 kg; Height 5 ft. rv 11 in. ; 06:24 BP 124 / 63; Pulse 86; Resp 16; Temp 98; Pulse Ox 99% on R/A; rv 04:16 Body Mass Index 31.98 (104.00 kg, 180.34 cm) rv [place] Coma Score: 06:24 Eye Response: spontaneous(4). Motor Response: obeys commands(6). Verbal Response: rv oriented(5). Total: 15. ED Course: 04:16 Patient arrived in ED. rv 04:17 Stu Banerjee MD is Attending Physician. chetan 04:18 Triage completed. rv 04:20 Haja Plaza RN is Primary Nurse. rv 04:21 Arm band placed on right wrist. rv 04:21 Patient has correct armband on for positive identification. Bed in low position. Call rv light in reach. Side rails up X 1. Client placed on continuous cardiac and pulse oximetry monitoring. NIBP monitoring applied. 04:21 Provided Education on: CHRONIC PAIN IS NOT EMERGENCY. rv 04:21 No provider procedures requiring assistance completed. rv 06:25 Patient did not have IV access during this emergency room visit. rv Administered Medications: 04:58 Drug: Ketorolac IM 30 mg Route: IM; Site: right deltoid; rv 06:25 Follow up: Response: No adverse reaction rv 04:58 Drug: Diazepam PO 10 mg Route: PO; rv 06:25 Follow up: Response: No adverse reaction rv Medication: 04:21 VIS not applicable for this client. rv Outcome: 04:39 Discharge ordered by . chetan 06:25 Discharged to home via ambulance. rv 06:25 Condition: improved 06:25 Discharge instructions given to patient, Instructed on discharge instructions, follow up and referral plans. Demonstrated understanding of instructions, follow-up care. 06:25 Patient left the ED. rv Signatures: Stu Banerjee MD MD cha Vicente, Ronaldo RN RN rv
--- NOTE | 2023-05-17 04:39 | EDPHYS ---
Physician Documentation [facility] Name: Kiel Ngo Age: 72 yrs Sex: Male : 1950 Arrival Date: 05/17/2023 Time: 04:14 Bed 5 Private MD: ED Physician Stu Banerjee HPI: 05/17 04:33 This 72 yrs old Male presents to ER via EMS with complaints of chronic right chetan leg pain. 04:33 The patient or guardian reports decreased range of motion, pain. that occurred at home, chetan sustained from unknown reason. The complaints affect the right leg. Onset: The symptoms/episode began/occurred 2 day(s) ago. Modifying factors: The symptoms are alleviated by nothing, the symptoms are aggravated by nothing. The patient presents with decreased range of motion, pain. The complaints affect the right hip, lateral aspect of right thigh, right upper thigh and right quadriceps. Context: The problem was sustained at an unknown site. Modifying factors: The symptoms are alleviated by nothing. the symptoms are aggravated by nothing. Associated signs and symptoms: The patient has no apparent associated signs or symptoms. Treatment prior to arrival includes: no previous treatment. Severity of symptoms: At their worst the symptoms were mild, in the emergency department the symptoms are unchanged. Historical: - Allergies: 04:18 Demerol; rv 04:18 metformin; rv 04:18 Morphine; rv - PMHx: 04:18 Atrial fibrillation; chronic back pain; Chronic right leg pain; neuropathy; rv - PSHx: 04:18 back sx; PANCREAS SX; rv - Immunization history:: Adult Immunizations unknown. - Social history:: Smoking status: unknown. - Family history:: not pertinent. ROS: 04:33 Constitutional: Negative for fever, chills, and weight loss, Eyes: Negative for injury, chetan pain, redness, and discharge, ENT: Negative for injury, pain, and discharge, Neck: Negative for injury, pain, and swelling, Cardiovascular: Negative for chest pain, palpitations, and edema, Respiratory: Negative for shortness of breath, cough, wheezing, and pleuritic chest pain, Abdomen/GI: Negative for abdominal pain, nausea, vomiting, diarrhea, and constipation, Back: Negative for injury and pain, : Negative for injury, bleeding, discharge, and swelling, Skin: Negative for injury, rash, and discoloration, Neuro: Negative for headache, weakness, numbness, tingling, and seizure, Psych: Negative for depression, anxiety, suicide ideation, homicidal ideation, and hallucinations, Allergy/Immunology: Negative for hives, rash, and allergies, Endocrine: Negative for neck swelling, polydipsia, polyuria, polyphagia, and marked weight changes, Hematologic/Lymphatic: Negative for swollen nodes, abnormal bleeding, and unusual bruising. 04:33 MS/extremity: Positive for decreased range of motion, pain, of the right leg. Exam: 04:33 Constitutional: This is a well developed, well nourished patient who is awake, alert, chetan and in no acute distress. Head/Face: Normocephalic, atraumatic. Eyes: Pupils equal round and reactive to light, extra-ocular motions intact. Lids and lashes normal. Conjunctiva and sclera are non-icteric and not injected. Cornea within normal limits. Periorbital areas with no swelling, redness, or edema. ENT: Nares patent. No nasal discharge, no septal abnormalities noted. Tympanic membranes are normal and external auditory canals are clear. Oropharynx with no redness, swelling, or masses, exudates, or evidence of obstruction, uvula midline. Mucous membranes moist. Neck: Trachea midline, no thyromegaly or masses palpated, and no cervical lymphadenopathy. Supple, full range of motion without nuchal rigidity, or vertebral point tenderness. No Meningismus. Chest/axilla: Normal chest wall appearance and motion. Nontender with no deformity. No lesions are appreciated. Cardiovascular: Regular rate and rhythm with a normal S1 and S2. No gallops, murmurs, or rubs. Normal PMI, no JVD. No pulse deficits. Respiratory: Lungs have equal breath sounds bilaterally, clear to auscultation and percussion. No rales, rhonchi or wheezes noted. No increased work of breathing, no retractions or nasal flaring. Abdomen/GI: Soft, non-tender, with normal bowel sounds. No distension or tympany. No guarding or rebound. No evidence of tenderness throughout. Back: No spinal tenderness. No costovertebral tenderness. Full range of motion. Skin: Warm, dry with normal turgor. Normal color with no rashes, no lesions, and no evidence of cellulitis. Neuro: Awake and alert, GCS 15, oriented to person, place, time, and situation. Cranial nerves II-XII grossly intact. Motor strength 5/5 in all extremities. Sensory grossly intact. Cerebellar exam normal. Normal gait. Psych: Awake, alert, with orientation to person, place and time. Behavior, mood, and affect are within normal limits. 04:33 Musculoskeletal/extremity: ROM: limited active range of motion, limited passive range of motion, limited active range of motion due to pain, limited passive range of motion due to pain, in the right leg, Pulses: are normal with no appreciated deficits, Sensation intact. Compartment Syndrome exam of affected extremity: is normal. Joints: All joints are normal except limited range of motion, painful range of motion, Weight bearing: is unable to bear weight, DVT Exam: no swelling, no tenderness, negative Homans' sign noted on exam, no appreciated bluish discoloration, no erythema, no increased warmth, pain. Vital Signs: 04:16 BP 110 / 61; Pulse 90; Resp 19; Temp 98.7; Pulse Ox 99% ; Weight 104 kg; Height 5 ft. rv 11 in. ; 06:24 BP 124 / 63; Pulse 86; Resp 16; Temp 98; Pulse Ox 99% on R/A; rv 04:16 Body Mass Index 31.98 (104.00 kg, 180.34 cm) rv [place] Coma Score: 06:24 Eye Response: spontaneous(4). Motor Response: obeys commands(6). Verbal Response: rv oriented(5). Total: 15. MDM: 04:17 Patient medically screened. [facility] 04:37 Differential diagnosis: bursitis, arthritis, strain. Data reviewed: vital signs, nurses chetan notes. Consideration of Admission/Observation Escalation of care including admission/observation considered. I considered the following discharge prescriptions or medication management in the emergency department Medications were administered in the Emergency Department. See MAR. Test considered but Not performed: Labs: no labs. Care significantly affected by the following chronic conditions: a fib, chronic back , leg pain. Administered Medications: 04:58 Drug: Ketorolac IM 30 mg Route: IM; Site: right deltoid; rv 06:25 Follow up: Response: No adverse reaction rv 04:58 Drug: Diazepam PO 10 mg Route: PO; rv 06:25 Follow up: Response: No adverse reaction rv Disposition Summary: 05/17/23 04:39 Discharge Ordered Location: Home chetan Problem: new chetan Symptoms: have improved chetan Condition: Stable chetan Diagnosis - Pain in right leg chetan - Other chronic pain chetan Followup: chetan - With: Private Physician - When: 2 - 3 days - Reason: Recheck today's complaints, Continuance of care, Re-evaluation by your physician Discharge Instructions: - Discharge Summary Sheet chetan - Chronic Back Pain chetan - Chronic Pain, Adult chetan - Musculoskeletal Pain chetan - Pain Without a Known Cause chetan Forms: - Medication Reconciliation Form chetan - Thank You Letter chetan - Antibiotic Education chetan - Prescription Opioid Use chetan - Patient Portal Instructions chetan Signatures: Stu Banerjee MD MD cha Vicente, Ronaldo RN RN rv
[2023-05-17] MEDS ORDERED: DIAZEPAM 5 MG TABLET ONE (05:02)
[2023-05-17] MEDS ORDERED: KETOROLAC 30 MG/ML INJ ONE (05:02)
[2023-05-17 06:30] VITALS: O2SAT 99
[2023-05-17 06:32] VITALS: BP 124/63; TEMP 98
== END 2023-05-17 06:25 | disposition home or self-care (01) ==
LOC: ER 04:14
DX: G89.29 Other chronic pain (principal); Z88.5 Allergy status to narcotic agent; Z88.8 Allergy status to other drugs, medicaments and biological substances
CPT/HCPCS: 96372; 99284

== ENCOUNTER 2023-05-18 22:39 | Emergency (ER) | payer OTHER ==
--- OUTSIDE RECORDS SUMMARY | 2023-05-18 22:48 | XMS REPORT | Continuity of Care Document ---
:1950 Author Organization [facility] t Address [address] [place] [address] Care Team Providers Name Role Phone CALVIN WORLEY Primary Care Physician Unavailable [id number] Attending Clinician Unavailable KELLY WASHINGTON Attending Clinician Unavailable Zion Mathew Anavella Attending Clinician Unava ilable SWEETIE STOUT Attending Clinician Unavailable Girish VILLAREAL, Sweetie Attending Clinician Clavin Worley MD Attending Clinician Ruchi Peters RN Attending Clinician Paco Lacey DO Attending Clinician Hunter VILLAREAL, Vika Fernando Attending Clinician Alvarez Rowe MD Attending Clinician ALVAREZ ROWE Attending Clinician Unavailable PACO LACEY Attending Clinician Unavailable Doctor Unassigned, [place] Attending Clinician Unavailable Wilder VILLAREAL, Angi K.H. Attending Clinician Jl Mccabe MD Attending Clinician Kelly Washington MD Attending Clinician [phone] Lisandra Gallardo MD, Mukul Anand Attending Clinician [id number] Admitting Clinician Unavailable MUKUL GALLARDO Admitting Clinician Unavailable Angle Mathew, Anav Admitting Clinician Unavailable Hunter VILLAREAL, Vika Fernando Admitting Clinician VIKA HARRISON Admitting Clinician Unavailable Nicci VILLAREAL, Mukul Anand Admitting Clinician Payers Payer Name Policy Type Policy Number Effective Date Expiration Date Tony doe MEDICARE PART A [id number] 2007 \\T\\ B 00:00:00 [employer] INDEMNITY [id number] 2016 00:00:00 MCR MCR [id number] Problems Condition Condition Condition Status Onset Resolution [...] ents Source Name Type Date Date Clinician [place] Propensi Active Rash 2019- Univers ty to [...] Exposure to Not sure University of SARS-CoV-2 [place] [facility] (event) Branch History of Chews Tobacco University of tobacco use [place] [facility] History SDOH 2020-11-17 2020-11-17 5 University o f Financial 00:00:00 00:00:00 [place] [facility] History SDOH Food 2020-11-17 2020-11-17 1 Univers ity of Worry 00:00:00 00:00:00 [place] [facility] History SDOH Food 2020-11-17 2020-11-17 1 Univers ity of Scarcity 00:00:00 00:00:00 [place] [facility] History SDOH 2020-11-17 2020-11-17 1 University o f Transport Med 00:00:00 00:00:00 [place] [facility] al [facility] History SDIL 2020-11-17 2020-11-17 1 University o f Transport Non-Med 00:00:00 00:00:00 [facility] edical Branch Education 2020-11-16 2020-11-16 21 [place] of 00:00:00 00:00:00 [facility] Branch Alcohol intake 2020-11-16 2020-11-16 Ex-drinker [place] of 00:00:00 00:00:00 (finding) [facility] Tobacco use and 2020-08-21 2020-08-21 Former user Universi ty of exposure 00:00:00 00:00:00 [facility] Tobacco Comment 2020-08-21 2020-08-21 quit 10 years [...] 00:00:00 00:00:00 [place] [facility] edical Branch History SDIL 2020-08-21 2020-08-21 99 University o f Alcohol Std 00:00:00 00:00:00 [place] [facility] Drinks Branch History SDIL 2020-08-21 2020-08-21 99 University o f Alcohol Binge 00:00:00 00:00:00 [facility] al [place] Sex [birth year] At [birth year] Universit y of 00:00:00 00:00:00 [facility] Smoking Status Start Date Stop Date Source Never smoker [facility] Medications Ordered Filled Start Stop [...] by ity of tablet 22:47: mouth at [place] 18 bedtime. Medical Branch HYDROmorpho 0 Yes [...] by ity of tablet 22:47: mouth at [place] 18 bedtime. Medical Branch [...] 0845, Until Discontinu ed, Routine amLODIPine Yes [id number] 10mg Take 1 Univers 10 mg 3-07 tablet by ity of tablet 00:00: mouth [place] 00 daily. Medical Branch clotrimazol Yes [id number] Apply to Univers e 1 % 3-07 face/ears, ity of topical 00:00: armpits, [place] cream 00 pannus and Medical back/any Branch other rash twice a day fluocinonid 0 Yes [id number] Apply to Univers e 0.05 % 3-07 scalp ity of solution 00:00: twice a 00 day Medical Branch triamcinolo 0 Yes [id number] Apply to Univers ne 3-07 back, ity of acetonide 00:00: armpits [place] 0.1 % cream 00 and other Med ical affected Branch areas twice daily, please mix with clotrimazo le hydrOXYzine Yes [id number] 10mg Take 1 Univers 10 mg 3-07 tablet by ity of tablet 00:00: mouth 2 (two) Medical times Branch daily. amLODIPine Yes [id number] 10mg Take 1 Univers 10 mg 3-07 tablet by ity of tablet 00:00: mouth [place] 00 daily. Medical Branch clotrimazol Yes [id number] Apply to Univers e 1 % 3-07 face/ears, ity of topical 00:00: armpits, [place] cream 00 pannus and Medical back/any Branch other rash twice a day fluocinonid 0 Yes [id number] Apply to Univers e 0.05 % 3-07 scalp ity of solution 00:00: twice a day Medical Branch triamcinolo Yes [id number] Apply to Univers ne 3-07 back, ity of acetonide 00:00: armpits [place] 0.1 % cream 00 and other Med ical affected Branch areas twice daily, please mix with clotrimazo le hydrOXYzine Yes [id number] 10mg Take 1 Univers 10 mg 3-07 tablet by ity of tablet 00:00: mouth 2 00 (two) Medical times Branch daily. amLODIPine 2020-0 Yes [id number] 10mg Take 1 Univers 10 mg 3-07 tablet by ity of tablet 00:00: mouth [place] 00 daily. Medical Branch clotrimazol 2020-0 Yes [id number] Apply to Univers e 1 % 3-07 face/ears, ity of topical 00:00: armpits, [place] cream 00 pannus and Medical back/any Branch other rash twice a day fluocinonid 2020-0 Yes [id number] Apply to Univers e 0.05 % 3-07 scalp ity of solution 00:00: twice a day Medical Branch triamcinolo 2020-0 Yes [id number] Apply to Univers ne 3-07 back, ity of acetonide 00:00: armpits [place] 0.1 % cream 00 and other Med ical affected Branch areas twice daily, please mix with clotrimazo le hydrOXYzine Yes [id number] 10mg Take 1 Univers 10 mg 3-07 tablet by ity of tablet 00:00: mouth 2 [place] 00 (two) Medical times Branch daily. amLODIPine Yes [id number] 10mg Take 1 Univers 10 mg 3-07 tablet by ity of tablet 00:00: mouth [place] 00 daily. Medical Branch clotrimazol Yes [id number] Apply to Univers e 1 % 3-07 face/ears, ity of topical 00:00: armpits, [place] cream 00 pannus and Medical back/any Branch other rash twice a day fluocinonid 2020- Yes [id number] Apply to Univers e 0.05 % 3-07 scalp ity of solution 00:00: twice a Medical Branch triamcinolo 0 Yes [id number] Apply to Univers ne 3-07 back, ity of acetonide 00:00: armpits [place] 0.1 % cream 00 and other Med ical affected Branch areas twice daily, please mix with clotrimazo le hydrOXYzine Yes [id number] 10mg Take 1 Univers 10 mg -07 tablet by ity of tablet 00:00: mouth 2 [place] (two) Medical times Branch daily. cephALEXin 2020-2020- No [id number] 500mg Take 1 Univers 500 mg -04 14- capsule by ity of capsule 00:00: 05:59 mouth [place] 00 :00 every 6 Medical (six) Branch hours for 3 days. cephALEXin 2020-0 2020- No [id number] 500mg Take 1 Univers 500 mg 3-04 14- capsule by ity of capsule 00:00: 05:59 mouth [place] 00 :00 every 6 Medical (six) Branch hours for 3 days. hydrOXYzine 2020-0 2020- No [id number] 10mg Take 1 Univers 10 mg 3-04 14-07 tablet by ity of tablet 00:00: 00:00 mouth 2 [place] 00 :00 (two) Medical times [place] daily. morpHINE Yes 4mg 4 mg, Slow [...] ity of mg 11:15: 10:58 ONCE, 1 [place] 00 :00 dose, Sat [facility] 12/16/20 at Branch 0515, Routine lactated 2020- No 1000mL at 125 Univ ers ringers IV 12-16 03-06 mL/hr, ity of infusion 01:00: 00:16 1,000 mL, [place] 1,000 mL 00 :00 IV Medical Infusion, [place] ONCE, 1 dose, 12/15/20 at 1900, Routine iohexol 2020- No 100mL 100 mL, Unive rs (OMNIPAQUE 12-15-05 Intravenou it y of 350 22:24: 22:24 s, ONCE, 1 [place] BULK-100 00 :00 dose, Fri Medica l mL) 12/15/20 at [place] injection 1645, 100 mL Routine cephALEXin 2020- [...] 0.9% 2020- No 500mL at 999 [facility] ers (NS) bolus 12-15-05 mL/hr, 500 it y of infusion 16:00: 15:26 mL, IV [place] 500 mL 00 :00 Piggyback, Medical ONCE, 1 Branch dose, Fri12/15/20 at 1000, STAT HYDROmorpho Yes 4mg 4 mg, [facility] 05 Oral, BID, ity of (DILAUDID) 15:30: First dose [place] tablet 4 mg 00 (after Medica l last Branch modificati on) on Fri12/15/20 at 0930, Until Discontinu ed, Routine amLODIPine 2020- No [id number] 10mg Take 1 Univers 10 mg 12-15-07 tablet by ity of tablet 00:00: 00:00 mouth [place] 00 :00 daily. Medical Branch HYDROmorpho 2020- No 1mg 1 mg, [facility] ers ne 12-14 03-05 Oral, ity of (DILAUDID) 17:35: 15:18 Q6HPRN, [place] tablet 1 mg 30 :06 Starting Medi [facility] 12/14/20 Branch at 1135, Until Fri12/15/20 at 0918, Routine, Pain (scale 7-10) hydrOXYzine Yes 10mg 10 mg, [facility] ers (ATARAX) 3-04 Oral, BID, ity o f tablet 10 17:30: First dose [place] mg 00 on [facility] 12/14/20 at Branch 1130, Until Discontinu ed, Routine lisinopriL Yes 5mg 5 mg, Univer s (PRINIVIL,Z 3-04 Oral, ity of ESTRIL) 17:30: DAILY, [place] tablet 5 mg 00 First dose Me dical on [facility] Branch 3/4/21 at 1130, Until Discontinu ed, Routine triamcinolo 2020- No [id number] Apply to Univers ne 12-14 back, ity of acetonide 00:00: 00:00 armpits [place] 0.1 % cream 00 :00 and other Med ical affected Branch areas twice daily, please mix with clotrimazo le clotrimazol 2020- No [id number] Apply to Univers e 1 % 12-14 face/ears, ity of topical 00:00: 00:00 armpits, [place] cream 00 :00 pannus and Medical back/any Branch other rash twice a day fluocinonid 2020- No [id number] Apply to Univers e 0.05 % 12-14 scalp ity of solution 00:00: 00:00 twice a [place] 00 :00 day Medical Branch hydrOXYzine 2020- No [id number] 10mg Take 1 Univers 10 mg 12-14 [...] ity of (PF)) 04:55: 05:44 ONCE, 1 [place] injection 4 00 :00 dose, [facility] ical mg 12/12/20 at Branch 2300, Routine traMADoL 2020- No 50mg 50 mg, Univer s (ULTRAM) 12-13 03-03 Oral, ity of tablet 50 03:45: 03:34 ONCE, 1 [place] mg 00 :00 dose, [facility] 12/12/20 at Branch 2145, Routine insulin Yes 15U 15 Units, [facility] rs glargine 12-12 Subcutaneo ity o f (LANTUS 15:00: us, DAILY, [place] U-100) 00 First dose Medical injection on [facility] 15 Units 12/12/20 at 0900, Until Discontinu ed hydrOXYzine 2020- No 10mg 10 mg, Uni vers (ATARAX) 12-12 03-02 Oral, ity of tablet 10 08:15: 07:33 ONCE, 1 [place] mg 00 :00 dose, [facility] 12/12/20 at Branch 0215, Routine mirtazapine Yes 7.5mg 7.5 mg, Un toi (REMERON) 3-02 Oral, QHS, ity of tablet 7.5 03:00: First dose [place] mg 00 [facility] 12/11/20 at Branch 2100, Until Discontinu [...] of 1,000 mg in 19:00: 17:35 Piggyback, [place] NaCl 0.9% 00 :26 Q8H ABX, Medica l (NS) 50 mL First dose Bra nch MINI-BAG on 12/11/20 at 1300, Until Discontinu ed, 50 mL
R jose armando for Anti-Infec tive: Documented Infection< br>Documen ronan Infection Site: Skin / Soft Tissue
Duration of Therapy: 7 days Sliding Yes Subcutaneo [facility] ers Scale 12-11 us, TID [...] ed Polyethylen Yes 17g 17 g, [facility] rs e Glycol 12-11 Oral, ity of 3350 17:47: [id number], [place] (MIRALAX) 05 Starting Medica l powder [...] 0630, STAT piperacilli No 3.375g 3.375 g, [facility] n-tazobacta 12-11 IV ity of m (ZOSYN) 12:00: 17:48 Piggyback, [place] injection 00 :24 Q6H, First Medi jose c 3.375 g dose on Branch Fri12/11/20 at 0600, Until Discontinu ed, KAHLIL
Re ason for Anti-Infec tive: Empiric Therapy for Suspected Infection< br>Empiric Therapy Site: Skin / Soft tissue
Duration of therapy: 72 hours sennosides- Yes [id number] 1{tbl} Take 1 [facility] docusate 2-09 tablet by ity of sodium 00:00: mouth 2 [place] 8.6-50 mg 00 (two) Medical per tablet times Branch daily. hydrocortis Yes [id number] Apply to [facility] one 2.5 % 11-21 affected ity of cream 00:00: area(s) 2 [place] 00 (two) Medical times Branch daily. blood sugar Yes [id number] Use to [facility] diagnostic 2- check ity of (FREESTYLE 00:00: blood [place] LITE 00 glucose Medical STRIPS) 4-5 times Branch strip daily. Polyethylen 2020- Yes [id number] 17g Take 1 Univers e Glycol 2-09 Packet by ity of 3350 17 00:00: mouth [place] gram powder 00 every 24 Medi jose c (twenty-fo Branch ur) hours as needed for Constipati on. sennosides- Yes [id number] 1{tbl} Take 1 Univers docusate 2-09 tablet by ity of sodium 00:00: mouth 2 [place] 8.6-50 mg 00 (two) Medical per tablet times Branch daily. hydrocortis 2020- Yes [id number] Apply to Univers one 2.5 % 2-09 affected ity of cream 00:00: area(s) 2 [place] 00 (two) Medical times Branch daily. blood sugar Yes [id number] Use to Univers diagnostic 2-09 check ity of (FREESTYLE 00:00: blood [place] LITE 00 glucose Medical STRIPS) 4-5 times Branch strip daily. Polyethylen Yes [id number] 17g Take 1 Univers e Glycol 2-09 Packet by ity of 3350 17 00:00: mouth [place] gram powder 00 every 24 Medi jose c (twenty-fo Branch ur) hours as needed for Constipati on. sennosides- Yes [id number] 1{tbl} Take 1 Univers docusate 2-09 tablet by ity of sodium 00:00: mouth 2 [place] 8.6-50 mg 00 (two) Medical per tablet times Branch daily. hydrocortis 2020- Yes [id number] Apply to Univers one 2.5 % 2-09 affected ity of cream 00:00: area(s) 2 [place] 00 (two) Medical times Branch daily. blood sugar 2020-0 Yes [id number] Use to Univers diagnostic 209 check ity of (FREESTYLE 00:00: blood [place] LITE 00 glucose Medical STRIPS) 4-5 times Branch strip daily. Polyethylen 2020-0 Yes [id number] 17g Take 1 Univers e Glycol 2-09 Packet by ity of 3350 17 00:00: mouth [place] gram powder 00 every 24 Medi jose c (twenty-fo Branch ur) hours as needed for Constipati on. sennosides- 2020- Yes [id number] 1{tbl} Take 1 Univers docusate 2-09 tablet by ity of sodium 00:00: mouth 2 [place] 8.6-50 mg 00 (two) Medical per tablet times Branch daily. hydrocortis Yes [id number] Apply to [facility] one 2.5 % 11-21 affected ity of cream 00:00: area(s) 2 [place] 00 (two) Medical times Branch daily. blood sugar Yes [id number] Use to [facility] diagnostic 11-21 check ity of (FREESTYLE 00:00: blood [place] LITE 00 glucose Medical STRIPS) 4-5 times Branch strip daily. Polyethylen Yes [id number] 17g Take 1 Univers e Glycol 11-21 Packet by ity of 3350 17 00:00: mouth [place] gram powder 00 every 24 Medi jose c (twenty-fo Branch ur) hours as needed for Constipati on. Insulin 2020- No [id number] 15U inject 15 Univers Glargine 11-21 Units ity of (LANTUS 00:00: 05:59 under the [employer] SOLOSTAR 00 :00 skin every Medic al U-100 morning Branch INSULIN) for 30 100 unit/mL days. (3 mL) injection venlafaxine 2020- No [id number] 150mg Take 1 Univers XR 150 mg 11-21 capsule by ity of 24 hr 00:00: 05:59 mouth 3 [place] capsule 00 :00 (three) Medical times Branch daily for 30 days. Insulin 2020- No [id number] 15U inject 15 Univers Glargine 11-21-12 Units ity of (LANTUS 00:00: 05:59 under the [employer] SOLOSTAR 00 :00 skin every Medic al U-100 morning Branch INSULIN) for 30 100 unit/mL days. (3 mL) injection venlafaxine 2020- No [id number] 150mg Take 1 Univers XR 150 mg 11-21 capsule by ity of 24 hr 00:00: 05:59 mouth 3 [place] capsule 00 :00 (three) Medical times Branch daily for 30 days. triamcinolo 2020- No [id number] Apply to [facility] ne 11-21-04 area(s) 2 ity of acetonide 00:00: 00:00 (two) [place] 0.1 % cream 00 :00 times Medical daily. Branch cephALEXin 2020- No [id number] 1000mg Take 2 Univers 500 mg 11-21 capsules ity of capsule 00:00: 00:00 by mouth 3 [place] 00 :00 (three) Medical times Branch daily. doxycycline 2020- No [id number] 100mg Take 1 Univers hyclate 100 11-21 capsule by i ty of mg capsule 00:00: 00:00 mouth [place] 00 :00 every 12 Medical (twelve) Branch hours. lactobacill 2020- No [id number] 1{tbl} Take 1 Univers us 11-21 tablet by ity of acidophilus 00:00: 00:00 mouth 2 [place] 25 million 00 :00 (two) Medical cell -100 times Branch mg captab daily. bisacodyL 2020- No [id number] 10mg Insert 1 Univers 10 mg 11-21 Suppositor ity of suppository 00:00: 00:00 y into [place] 00 :00 rectum at Medical bedtime as Branch needed for Constipati on. ALPRAZolam 2020- No [id number] .25mg Take 1 Univers (XANAX) 11-21 tablet by ity of 0.25 mg 00:00: 00:00 mouth 2 [place] tablet 00 :00 (two) Medical times Branch daily. hydrOXYzine 2020- No [id number] 20mg Take 2 Univers 10 mg 11-21 [...] 3 ity of 6 mg 01:13: (three) [place] capsule 36 times Medical daily. Branch Insulin 2019-10 Yes 15U inject 15 Unive rs Glargine 1-12 Units ity of (LANTUS 01:13: under the [place] SOLOSTAR) 36 skin. Medical 100 unit/mL Branch (3 mL) InPn INSULIN 2019-10 Yes 5U inject 5 Univer s ASPART 1-12 Units ity of (NOVOLOG 01:13: under the [facility] FLEXPEN SC) 36 skin. Medical Branch ALPRAZolam [...] [facility] FLEXPEN [facility]) 36 skin. Medical Branch ALPRAZolam [...] Units ity of (NOVOLOG 01:13: under the [facility] s FLEXPEN SC) 36 skin. Medical Branch ALPRAZolam 2019-10 Yes .25mg Take 0.25 U nivers (XANAX) 1-12 mg by ity of 0.25 mg 01:13: mouth 2 [place] tablet 36 (two) Medical times Branch daily. HYDROXYZINE 2019-10 2020- No 25mg Take 25 mg Univers PAMOATE 1-11 11-11 by mouth ity of ORAL 20:04: 00:00 daily. [place] 34 :00 Medical Branch hydrocortis 2019-10 Yes [id number] Apply to Univers one 2.5 % 1-11 affected ity of cream 00:00: area(s) 2 [place] 00 (two) Medical times Branch daily. hydrOXYzine 2019-10 Yes [id number] 20mg Take 2 Univers 10 mg 1-11 tablets by ity of tablet 00:00: mouth [place] 00 every 8 Medical (eight) Branch hours as needed for Itching or Anxiety. Polyethylen 2019-10 Yes [id number] 17g Take 1 Univers e Glycol 1-11 Packet by ity of 3350 17 00:00: mouth [place] gram powder 00 every 24 Medi jose c (twenty-fo Branch ur) hours as needed for Constipati on. hydrocortis 2019-10 Yes [id number] Apply to Univers one 2.5 % 1-11 affected ity of cream 00:00: area(s) 2 [place] 00 (two) Medical times Branch daily. hydrOXYzine 2019- Yes [id number] 20mg Take 2 Univers 10 mg 1-11 tablets by ity of tablet 00:00: mouth [place] 00 every 8 Medical (eight) Branch hours as needed for Itching or Anxiety. Polyethylen 2019- Yes [id number] 17g Take 1 Univers e Glycol 1-11 Packet by ity of 3350 17 00:00: mouth [place] gram powder 00 every 24 Medi jose c (twenty-fo Branch ur) hours as needed for Constipati on. hydrocortis 2019- Yes [id number] Apply to Univers one 2.5 % 1-11 affected ity of cream 00:00: area(s) 2 [place] (two) Medical times Branch daily. hydrOXYzine 2019- Yes [id number] 20mg Take 2 Univers 10 mg 1-11 tablets by ity of tablet 00:00: mouth [place] 00 every 8 Medical (eight) Branch hours as needed for Itching or Anxiety. Polyethylen 2019- Yes [id number] 17g Take 1 Univers e Glycol 1-11 Packet by ity of 3350 17 00:00: mouth [place] gram powder 00 every 24 Medi jose c (twenty-fo Branch ur) hours as needed for Constipati on. hydrocortis 2019-10 Yes [id number] Apply to Univers one 2.5 % 1-11 affected ity of cream 00:00: area(s) 2 [place] (two) Medical times Branch daily. hydrOXYzine 2019- Yes [id number] 20mg Take 2 Univers 10 mg 1-11 tablets by ity of tablet 00:00: mouth [place] 00 every 8 Medical (eight) Branch hours as needed for Itching or Anxiety. Polyethylen 2019- Yes [id number] 17g Take 1 Univers e Glycol 1-11 Packet by ity of 3350 17 00:00: mouth [place] gram powder 00 every 24 Medi jose c (twenty-fo Branch ur) hours as needed for Constipati on. hydrocortis 2019-10 Yes [id number] Apply to Univers one 2.5 % 1-11 affected ity of cream 00:00: area(s) 2 [place] 00 (two) Medical times Branch daily. hydrOXYzine 2019-10 Yes [id number] 20mg Take 2 Univers 10 mg 1-11 tablets by ity of tablet 00:00: mouth [place] 00 every 8 Medical (eight) Branch hours as needed for Itching or Anxiety. Polyethylen 2020- Yes [id number] 17g Take 1 Univers e Glycol 1-11 Packet by ity of 3350 17 00:00: mouth [place] gram powder 00 every 24 Medi jose c (twenty-fo Branch ur) hours as needed for Constipati on. hydrocortis 2019- Yes [id number] Apply to Univers one 2.5 % 1-11 affected ity of cream 00:00: area(s) 2 [place] 00 (two) Medical times Branch daily. hydrOXYzine 2019- Yes [id number] 20mg Take 2 Univers 10 mg 1-11 tablets by ity of tablet 00:00: mouth [place] 00 every 8 Medical (eight) Branch hours as needed for Itching or Anxiety. Polyethylen 2019- Yes [id number] 17g Take 1 Univers e Glycol 1-11 Packet by ity of 3350 17 00:00: mouth [place] gram powder 00 every 24 Medi jose c (twenty-fo Branch ur) hours as needed for Constipati on. hydrocortis 2019-10 Yes [id number] Apply to Univers one 2.5 % 1-11 affected ity of cream 00:00: area(s) 2 [place] 00 (two) Medical times Branch daily. hydrOXYzine 2019-10 Yes [id number] 20mg Take 2 Univers 10 mg 1-11 tablets by ity of tablet 00:00: mouth [place] 00 every 8 Medical (eight) Branch hours as needed for Itching or Anxiety. Polyethylen 2019- Yes [id number] 17g Take 1 Univers e Glycol 1-11 Packet by ity of 3350 17 00:00: mouth [place] gram powder 00 every 24 Medi jose c (twenty-fo Branch ur) hours as needed for Constipati on. triamcinolo 2019- 2020- No [id number] Apply to [facility] 10-23 area(s) 2 ity of acetonide 00:00: 05:59 (two) [place] 0.1 % cream 00 :00 times Medical daily for Branch 14 days. triamcinolo 2019- 2020- No [id number] Apply to [facility] 10-23 area(s) 2 ity of acetonide 00:00: 05:59 (two) [place] 0.1 % cream 00 :00 times Medical daily for Branch 14 days. triamcinolo 2019- 2020- No [id number] Apply to [facility] ne 10-23 area(s) 2 ity of acetonide 00:00: 05:59 (two) [place] 0.1 % cream 00 :00 times Medical daily for Branch 14 days. KCL 2019- 2020- No 40meq 40 mEq, Univers (KLOR-CON 1-10 11-10 Oral, ONCE ity of M20) tablet 16:15: 16:23 NOW, 1 [place] 40 mEq 00 :00 dose, [facility] 08/22/20 Branch at 1015, Routine HYDROmorpho 2019-10 Yes 1mg 1 mg, Unive rs ne 1-10 Oral, ity of (DILAUDID) 15:07: Q6HPRN, [place] tablet 1 mg 53 Starting [facility] 08/22/20 at 0907, Until Discontinu ed, Routine, Pain (scale 7-10) hydrocortis 2019-10 Yes Topical Uni vers one 2.5 % 1-10 (Apply To ity o f cream 02:00: Affected [place] 00 Areas), Medical BID, First Branch dose on [facility] 08/21/20 at 2000, Until Discontinu ed, Routine triamcinolo 2019-10 Yes Topical, Un toi ne 1-10 BID, First ity of acetonide 02:00: dose on [place] (TRIDERM) [facility] Medical 0.1 % cream 08/21/20 at Br anch 2000, Until Discontinu ed, Routine hydrOXYzine 2019-10 Yes 20mg 20 mg, Univ ers (ATARAX) 09 Oral, ity of tablet 20 17:39: Q8HPRN, [place] mg [address] [facility] 08/21/20 at 1139, Until Discontinu ed, Routine, Itching, Anxiety sennosides- 2019-10 Yes 1{tbl} 1 tablet, Univers docusate 09 Oral, ity of sodium 15:00: DAILY, [place] (SENOKOT-S) 00 First dose Me dical 8.6-50 mg on [facility] per tablet 08/21/20 at 1 tablet 0900, Until Discontinu ed, Routine hydrocortis 2019-10 2020- No Topical Un toi one 1 % 10-21- (Apply To ity of cream 15:00: 22:54 Affected [place] 00 :48 Areas), Medical DAILY, Branch First dose on [facility] 08/21/20 at 0900, Until Discontinu ed, Routine venlafaxine 2019-10 Yes 150mg 150 mg, Un toi XR (EFFEXOR 09 Oral, TID, it y of XR) 24 hr 14:00: First dose [place] capsule 150 00 on [facility] Medica l mg 08/21/20 at [...] 59 :43 Starting Medica l mg [facility] 08/21/20 at 0656, Until [facility] 08/21/20 at 1139, Routine, Itching, Mild Rash, Congestion /Allergies , alternate with hydroxyzin e hydrOXYzine 2019-10- No 10mg 10 mg, Uni vers (ATARAX) 10-21 Oral, ity of tablet 10 10:20: 12:57 Q6HPRN, [place] mg 22 :12 Starting Medical [facility] 08/21/20 at 0420, Until [facility] 08/21/20 at 0657, Routine, Itching, [...] dose, [facility] 00 :00 08/21/20 at [facility] 0330, Branch Routine Polyethylen 2019-10 Yes 17g 17 g, Unive rs e Glycol 10-21 Oral, ity of 3350 08:29: [id number], [place] (MIRALAX) 09 Starting Medica l powder 17 g [facility] 08/21/20 at 0229, Until Discontinu ed, Routine, [...] 1-3) sotalol 2019-10- No [facility] (BETAPACE) 10-21 mouth ity of 240 mg 07:43: 00:00 every 12 [place] tablet 30 :00 (twelve) Medical hours. Branch blood sugar Yes Use to [facility] ers diagnostic 4-25 check ity of (FREESTYLE 00:00: blood [place] LITE 00 glucose Medical STRIPS) 4-5 times Branch strip daily. blood sugar Yes Use to [facility] ers diagnostic 4-25 check ity of (FREESTYLE 00:00: blood [place] LITE 00 glucose Medical STRIPS) 4-5 times Branch strip daily. blood sugar Yes Use to [facility] ers diagnostic 4-25 check ity of (FREESTYLE 00:00: blood [place] LITE 00 glucose Medical STRIPS) 4-5 times Branch strip daily. blood sugar Yes Use to [facility] ers diagnostic 4-25 check ity of (FREESTYLE 00:00: blood [place] LITE 00 glucose Medical STRIPS) 4-5 times Branch strip daily. blood sugar Yes Use to [facility] ers diagnostic 4-25 check ity of (FREESTYLE 00:00: blood [place] LITE 00 glucose Medical STRIPS) 4-5 times Branch strip daily. blood sugar Yes Use to [facility] ers diagnostic -25 check ity of (FREESTYLE 00:00: blood [place] LITE 00 glucose Medical STRIPS) 4-5 times Branch strip daily. blood sugar Yes Use to [facility] ers diagnostic -25 check ity of (FREESTYLE 00:00: blood [place] LITE 00 glucose Medical STRIPS) 4-5 times Branch strip daily. Vital Signs Vital Name Observation Time Observation Value Comments Source Systolic blood 2021-08-22 13:00:00 148 mm[Hg] Univer sity [facility] Diastolic blood 2021-08-22 13:00:00 84 mm[Hg] Unive rsity [facility] Heart rate 2021-08-22 13:00:00 103 /min [facility] Respiratory rate 2021-08-22 13:00:00 18 /min [facility] Oxygen saturation in 2021-08-22 13:00:00 95 /min [facility] Arterial blood by [facility] Pulse oximetry Branch Body temperature 2021-08-22 12:22:00 36.72 [place] [facility] Systolic blood 2020-12-17 18:35:00 139 mm[Hg] Univer sity of [facility] Diastolic blood 2020-12-17 18:35:00 87 mm[Hg] Unive rsity of [facility] Heart rate 2020-12-17 18:35:00 110 /min [facility] Body temperature 2020-12-17 18:35:00 37.72 [place] [facility] Respiratory rate 2020-12-17 18:35:00 18 /min [facility] Oxygen saturation in 2020-12-17 18:35:00 93 /min University of Arterial blood by [facility] jose c Pulse oximetry Branch Body height 2020-12-12 08:21:00 180.3 cm [facility] [place] [facility] Body weight 2020-12-12 08:21:00 103.42 kg [facility] [place] [facility] BMI 2020-12-12 08:21:00 31.80 kg/m2 [facility] [place] [facility] Systolic blood 2020-12-17 18:35:00 139 mm[Hg] Univer sity of pressure [place] [facility] Diastolic blood 2020-12-17 18:35:00 87 mm[Hg] Unive rsity of pressure [place] [facility] Heart rate 2020-12-17 18:35:00 110 /min [facility] [place] [facility] Body temperature 2020-12-17 18:35:00 37.72 [place] [facility] [place] [facility] Respiratory rate 2020-12-17 18:35:00 18 /min Univ [facility] [place] [facility] Oxygen saturation in 2020-12-17 18:35:00 93 /min University of Arterial blood by [facility] Pulse oximetry Branch Body height 2020-12-12 08:21:00 180.3 cm [facility] [place] [facility] Body weight 2020-12-12 08:21:00 103.42 kg [facility] [place] [facility] BMI 2020-12-12 08:21:00 31.80 kg/m2 [...] 93 /min University of Arterial blood by [facility] Pulse oximetry Branch Body weight 2020-08-21 07:20:00 104.962 kg [facility] [place] [facility] BMI 2020-08-21 07:20:00 32.27 kg/m2 [facility] [place] [facility] Systolic blood 2020-08-23 19:27:00 140 mm[Hg] Univer sity of pressure [facility] Diastolic blood 2020-08-23 19:27:00 79 mm[Hg] [facility] Heart rate 2020-08-23 19:27:00 99 /min [facility] Body temperature 2020-08-23 19:27:00 36 [place] [facility] Respiratory rate 2020-08-23 19:27:00 18 /min Univ [facility] Oxygen saturation in 2020-08-23 19:27:00 93 /min [facility] Arterial blood by [facility] Pulse oximetry [place] Body weight 2020-08-21 07:20:00 104.962 kg [facility] BMI 2020-08-21 07:20:00 32.27 kg/m2 [facility] Procedures Procedure Date / Time Performing Clinician Source Performed POCT GLUCOSE (AUTOMATED) 2020-12-17 15:42:00 Favio Harrisonal G Uni [facility] BASIC METABOLIC PANEL 2020-12-17 10:45:00 Paul Bean [facility] (NA, K, CL, CO2, GLUCOSE, [facility] Medica l Branch BUN, CREATININE, CA) CBC WITH DIFF 2020-12-17 10:45:[address] [facility] POCT GLUCOSE (AUTOMATED) 2020-12-17 02:36:00 Vika Harrison G Uni [facility] XR TIBIA FIBULA 2 VW LEFT 2020-12-16 23:38:00 [facility] POCT GLUCOSE (AUTOMATED) 2020-12-16 23:20:00 Harrison, Premal [facility] POCT GLUCOSE (AUTOMATED) 2020-12-16 20:10:00 Hunter Premal [facility] POCT GLUCOSE (AUTOMATED) 2020-12-16 14:43:00 Hunter Premal [facility] BASIC METABOLIC PANEL 2020-12-16 13:51:00 Paul Bean [facility] (NA, K, CL, CO2, GLUCOSE, [facility] BUN, CREATININE, CA) CBC WITH DIFF 2020-12-16 13:51:[address] [facility] POCT GLUCOSE (AUTOMATED) 2020-12-16 04:00:00 Harrison, Premal G Uni versity of [place] [facility] POCT GLUCOSE (AUTOMATED) 2020-12-16 00:14:00 Harrison, Premal G Uni versity of [facility] CT CHEST PULMONARY 2020-12-15 22:29:38 Paul Bean [facility] ANGIOGRAM [facility] POCT GLUCOSE (AUTOMATED) 2020-12-15 19:26:00 Harrison, Premal G Uni versity of [place] [facility] POCT GLUCOSE (AUTOMATED) 2020-12-15 15:13:00 Harrison, Premal [facility] HB ECG ROUTINE & RHYTHM 2020-12-15 14:25:27 Cailin Romo [facility] Branch MAGNESIUM 2020-12-15 12:01:[address] [facility] BASIC METABOLIC PANEL 2020-12-15 12:01:00 Paul Bean [facility] (NA, K, CL, CO2, GLUCOSE, [place] [facility] BUN, CREATININE, CA) CBC WITH DIFF 2020-12-15 12:01:[address] [facility] POCT GLUCOSE (AUTOMATED) 2020-12-15 03:57:00 Harrison, Premal G Uni versity of [facility] POCT GLUCOSE (AUTOMATED) 2020-12-14 23:31:00 Harrsion, Premal G Uni versity of [place] [facility] POCT GLUCOSE (AUTOMATED) 2020-12-14 19:08:00 Harrison, Premal G Uni versity of [place] [facility] POCT GLUCOSE (AUTOMATED) 2020-12-14 15:11:00 Harrison, Premal G Uni versity of [place] [facility] POCT GLUCOSE (AUTOMATED) 2020-12-14 02:36:00 Harrison, Premal G Uni versity of [place] [facility] POCT GLUCOSE (AUTOMATED) 2020-12-13 23:32:00 Harrison, Premal G Uni versity of [place] [facility] POCT GLUCOSE (AUTOMATED) 2020-12-13 18:08:00 Harrison, Premal G Uni versity of [place] [facility] BASIC METABOLIC PANEL 2020-12-13 15:39:00 Paul Bean [facility] (NA, K, CL, CO2, GLUCOSE, [place] [facility] BUN, CREATININE, CA) CBC WITH DIFF 2020-12-13 15:39:[address] [facility] POCT GLUCOSE (AUTOMATED) 2020-12-13 14:06:00 Harrison, Premal G Uni versity of [place] [facility] POCT GLUCOSE (AUTOMATED) 2020-12-13 03:07:00 Harrison, Premal G Uni versity of [place] [facility] POCT GLUCOSE (AUTOMATED) 2020-12-12 23:52:00 Harrison, Premal G Uni versity of [place] [facility] POCT GLUCOSE (AUTOMATED) 2020-12-12 20:28:00 Harrison, Premal G Uni versity of [place] [facility] POCT GLUCOSE (AUTOMATED) 2020-12-12 19:14:00 Harrison, Premal G Uni versity of [place] [facility] POCT GLUCOSE (AUTOMATED) 2020-12-12 14:33:00 Harrison, Premal G Uni versity of [facility] MAGNESIUM 2020-12-12 08:58:[address] [facility] BASIC METABOLIC PANEL 2020-12-12 08:58:00 Paul Bean [facility] (NA, K, CL, CO2, GLUCOSE, [facility] BUN, CREATININE, CA) CBC WITH DIFF 2020-12-12 08:58:[address] [facility] US ABDOMEN LIMITED 2020-12-12 06:32:26 Paul Bean [facility] POCT GLUCOSE (AUTOMATED) 2020-12-12 03:40:00 Harrison, Premal G Uni versity of [place] [facility] POCT GLUCOSE (AUTOMATED) 2020-12-12 00:06:00 Harrison, Premal G Uni [facility] [place] [facility] XR HIPS 3 VW LEFT 2020-12-11 20:20:00 Paul Bean Sivakumar [facility] HB ECG ROUTINE & RHYTHM 2020-12-11 20:04:06 Demetrius [facility] VITAMIN B6, PLASMA 2020-12-11 19:17:00 Paul Bean Sivakumar [facility] POCT GLUCOSE (AUTOMATED) 2020-12-11 19:06:00 Vika Harrison [facility] CREATINE KINASE 2020-12-11 18:22:00 Parvez [facility] VITAMIN B12, LEVEL 2020-12-11 18:22:00 Vikas [facility] FOLATE 2020-12-11 18:22:00 Vikas [facility] THYROID STIMULATING 2020-12-11 18:22:00 Demetrius [facility] HORMONE [facility] PROCALCITONIN 2020-12-11 18:22:00 Vikas [facility] VITAMIN B1 (THIAMINE), 2020-12-11 18:22:00 [facility] CT HEAD WO CONTRAST 2020-12-11 14:07:35 Sweetie Stout [facility] URINALYSIS 2020-12-11 13:44:[address] [facility] URINE CULTURE 2020-12-11 13:44:[address] [facility] COVID-19 (ID NOW RAPID 2020-12-11 12:31:00 Paco Lacey [facility] TESTING) Medical Branch LAB ONLY COVID 2020-12-11 12:31:00 Singer [facility] INTERPRETATION [facility] XR CHEST 1 VW 2020-12-11 12:07:[address] [facility] BLOOD CULTURE SCREEN 2020-12-11 12:02:00 Paco Lacey [facility] MAGNESIUM 2020-12-11 12:02:00 [facility] FERRITIN SERUM 2020-12-11 12:02:[address] [facility] COMP. METABOLIC PANEL 2020-12-11 12:02:00 Singer [facility] ([id number]) Medical [place] CBC WITH DIFF 2020-12-11 12:02:[address] [facility] LACTIC ACID WHOLE BLOOD 2020-12-11 12:02:00 Singer Paco [facility] BLOOD CULTURE SCREEN 2020-12-11 11:42:00 Singer Paco [facility] EMERGENCY SERVICES 2020-12-11 06:01:00 Doctor Unassnadya, [facility] AGREEMENTS AND [place] [facility] [place] AUTHORIZATIONS HOSPITAL ADMISSION 2020-12-11 06:01:00 Doctor Unaowen, [facility] Name Medical [place] HOME HEALTH - OTHER 2020-11-11 06:01:00 Doctor Tabitha [facility] [place] [facility] [place] HOME HEALTH - OTHER 2020-10-30 06:01:00 Doctor Unaowen [facility] Name Medical [place] EXTERNAL PROVIDER RECORDS 2020-09-01 06:01:00 Doctor Tabitha, [facility] Name [facility] POCT GLUCOSE (AUTOMATED) 2020-08-23 18:09:00 Kelly Washington [facility] POCT GLUCOSE (AUTOMATED) 2020-08-23 14:14:00 Kelly Washington [facility] MAGNESIUM 2020-08-23 11:18:00 Ramya [facility] BASIC METABOLIC PANEL 2020-08-23 11:18:00 [place] [facility] (NA, K, CL, CO2, GLUCOSE, Medica l Branch BUN, CREATININE, CA) CBC WITH DIFF 2020-08-23 11:18:00 [place] [facility] POCT GLUCOSE (AUTOMATED) 2020-08-23 10:21:00 Kelly Washington [facility] POCT GLUCOSE (AUTOMATED) 2020-08-23 05:55:00 Kelly Washington [facility] POCT GLUCOSE (AUTOMATED) 2020-08-23 03:00:00 Kelly Washington Jada versity of [facility] POCT GLUCOSE (AUTOMATED) 2020-08-22 23:38:00 Kelly Washington Jada versity of [facility] POCT GLUCOSE (AUTOMATED) 2020-08-22 19:04:00 Kelly Washington Jada versity of [facility] POCT GLUCOSE (AUTOMATED) 2020-08-22 13:49:00 Kelly Washington Jada versity [facility] MAGNESIUM 2020-08-22 10:10:00 [place], [facility] HEPATIC FUNCTION PANEL 2020-08-22 10:10:00 Aguila [facility] ([id number]) (ALB,T.PRO,BILI Medical Branch T,BU/BC,ALT,AST,ALK PHOS) BASIC METABOLIC PANEL 2020-08-22 10:10:00 [place] [facility] (NA, K, CL, CO2, GLUCOSE, Medica l Branch BUN, CREATININE, CA) LIPID PANEL ([id number])(TOTAL 2020-08-22 10:10:00 [place], [facility] CHOLESTEROL, Medical [place] TRIGLYCERIDES, HDL) CBC WITH DIFF 2020-08-22 10:10:00 [place], [facility] POCT GLUCOSE (AUTOMATED) 2020-08-22 10:10:00 [facility] PO[facility]UCOSE (AUTOMATED) 2020-08-22 07:13:00 Kelly Washington versity of [facility] POCT GLUCOSE (AUTOMATED) 2020-08-22 02:24:00 Kelly Washington versity of [facility] POCT GLUCOSE (AUTOMATED) 2020-08-21 23:40:00 Kelly Washington versity of [facility] POCT GLUCOSE (AUTOMATED) 2020-08-21 18:10:00 Kelly Washington versity of [facility] POCT GLUCOSE (AUTOMATED) 2020-08-21 13:39:00 Kelly Washington [facility] ETHANOL 2020-08-21 12:35:00 [facility] ACT[facility] PART[facility] 2020-08-21 12:35:00 Padmini [facility] GALV ONLY - SYPHILIS 2020-08-21 12:35:00 Padmini [facility] IGG/IGM [facility] LACTATE DEHYDROGENASE 2020-08-21 10:09:00 [place], [facility] GALV/CLC ONLY - URINE 2020-08-21 10:09:[address] [facility] DRUG (IMMUNOASSAY) - 4 ER Medica l Branch PANEL URINALYSIS 2020-08-21 10:09:00 [place], [facility] URINE CULTURE 2020-08-21 10:09:00 [place], [facility] PROCALCITONIN 2020-08-21 10:09:00 Ramya, [facility] POCT GLUCOSE (AUTOMATED) 2020-08-21 09:41:00 Kelly Washington [facility] PROTHROMBIN TIME / INR 2020-08-21 08:32:00 Ramya, [facility] ACTIVATED PARTIAL 2020-08-21 08:32:00 Ramya, [facility] C-REACTIVE PROTEIN 2020-08-21 08:31:00 [place], [facility] HEPATIC FUNCTION PANEL 2020-08-21 08:31:00 Ramya, [facility] ([id number]) (ALB,T.PRO,BILI Medical Branch T,BU/BC,ALT,AST,ALK PHOS) BASIC METABOLIC PANEL 2020-08-21 08:31:00 [place], [facility] (NA, K, CL, CO2, GLUCOSE, Medica l Branch BUN, CREATININE, CA) SEDIMENTATION RATE 2020-08-21 08:31:00 Ramya, [facility] CBC WITH DIFF 2020-08-21 08:31:00 [place], [facility] GLYCOSYLATED HEMOGLOBIN 2020-08-21 08:31:00 [place], [facility] (A1C) Medical [place] HIV 1/2 AG-AB WITH REFLEX 2020-08-21 08:31:00 [facility] COVID-[facility] (ID NOW RAPID 2020-08-21 08:20:00 Haily Bui [facility] TESTING) Medical Branch LAB ONLY COVID 2020-08-21 08:20:00 [place] [facility] [place] INTERPRETATION [facility] Branch Encounters Start End Encounter Admission Attending Care Care Encounter Source Date/Time Date/Time Type Type Clinicians Facility Department ID 2022-11-13 Outpatient 3 [id number] ENCPL REF [id number] [facility] 11:39:58 0201 Health Rehabil itation Peariftikhar dang 2020-08-21 Inpatient U WASHINGTON, METONG KVNG [id number] Univers 01:07:00 KELLY cantu [facility] [place] [facility] 2022-11-14 2022-11-28 Inpatient 3 [facility] ENCPL DELVIS [id number] [facility] 20:40:00 13:29:00 shaggy 0202 [facility] Health Rehabil itation Peariftikhar d 2021-08-22 2021-08-22 Emergency X [facility] ERT [id number] Univers 06:21:00 08:02:00 SWEETIE cantu [facility] [place] [facility] 2021-08-22 2021-08-22 [facility] [id number] Univers 06:21:00 08:02:00 Sweetie LOTT [id number] i ty of [place] 4.2.7.2.686 [facility] s [place] [id number] [facility] 084 Branch 2020-12-28 2020-12-28 Telephone [facility] [id number] Univers 00:00:00 00:00:00 Calvin WILLIAM [id number] it y of CARE 4.2.7.2.686 [id number] Pr dical 220 Branch 2020-12-28 2020-12-28 Telephone [facility] [id number] 00:00:00 00:00:00 Calvin WILLIAM [id number] CARE 4.2.7.2.686 [facility] [id number] 220 2020-12-19 2020-12-19 Transition Tuan Peters [id number] Univers 00:00:00 00:00:00 of Care Ruchi Braswell [id number] it y of [place] 4[place]2.[place] [id number] [facility] 403 Branch 2020-12-19 2020-12-19 Transition Tuan Peters [id number] 00:00:00 00:00:00 of Care Ruchi Braswell [id number] [place] 4.2.7.2.686 [id number] 2020-12-11 2020-12-17 [facility] Paco Lacey 1.2.840.1 [id number] Univers 05:11:00 16:00:00 Encounter HarrisonFaviovik Amaya [id number] ity of [facility] 4.2.7.2.686 [place] [id number] [facility] 096 Branch 2020-12-11 2020-12-17 Inpatient X [facility] [id number] Univers 05:11:00 16:00:00 ity of [facility] 2020-12-11 2020-12-17 [facility] Paco Lacey 1.2.840.1 [id number] 05:11:00 16:00:00 Encounter Vika Harrison Monique [id number] [facility] 4.2.7.2.686 [id number] 2020-11-16 2020-11-16 Emergency X [facility] ERT [id number] Univers 09:31:00 09:31:00 PACO cantu of [facility] 2020-11-11 2020-11-11 Orders Doctor CUI 1.2.840.114 [id number] Univers 00:00:00 00:00:00 Only Unassigned, MONIQUE [id number] ity of [place] [facility] 4.2.7.2.686 Jeff as [id number] [address] 2020-11-11 2020-11-11 Orders Doctor BASILIA 1.2.840.114 [id number] 00:00:00 00:00:00 Only Unassigned, MONIQUE [id number] [place] [facility] 4.2.7.2.686 [id number] [facility] 2020-11-07 2020-11-07 Telephone [facility] [id number] [facility] 00:00:00 00:00:00 Sendsiobhan Lott [id number] ity of [place]2.[place] Profess[place] [id number] [address] 2020-11-07 2020-11-07 Telephone [facility] [id number] 00:00:00 00:00:00 Angi Lott 350.1.13.10 [place] 4.2.7.2.686 Professio [id number] [address] 2020-10-30 2020-10-30 Orders Doctor BASILIA 1.2.840.114 [id number] [facility] 00:00:00 00:00:00 Only Unassigned, MONIQUE 350.1.13.10 ity of [place] [facility] 4.2.7.2.686 Jeff as [id number] [address] 2020-10-30 2020-10-30 Orders Doctor BASILIA 1.2.840.114 [id number] 00:00:00 00:00:00 Only Unassigned, MONIQUE 350.1.13.10 [place] [facility] 4.2.7.2.686 [id number] [facility] 2020-09-26 2020-09-26 Telephone [facility] 1.2.840.114 [id number] [facility] 00:00:00 00:00:00 [facility] [id number] i ty of CL[place]2.[place] [id number] [address] 2020-09-26 2020-09-26 Telephone [facility] 1.2.840.114 [id number] 00:00:00 00:00:00 [facility] [id number] CLINICS 4.2.7.2.686 [id number] 2020-09-01 2020-09-01 Orders Doctor BASILIA 1.2.840.114 [id number] Univers 00:00:00 00:00:00 Only Unassigned, MONIQUE 350.1.13.10 ity of [place] [facility] 4.2.7.2.686 Jeff as [id number] [facility] 009 Branch 2020-09-01 2020-09-01 Orders Doctor BASILIA 1.2.840.114 [id number] 00:00:00 00:00:00 Only Unassigned, MONIQUE 350.1.13.10 [place] [facility] 4.2.7.2.686 [id number] 2020-08-25 2020-08-25 Transition Tuan Peters 1.2.840.114 [id number] Univers 00:00:00 00:00:00 of Care Ruchi Braswell 350.1.13.10 it y of [place] 4[place].2.[place] [id number] [facility] 403 Branch 2020-08-25 2020-08-25 Transition Tuan Peters 1.2.840.114 [id number] 00:00:00 00:00:00 of Care Ruchi Braswell 350.1.13.10 [place] 4.2.7.2.686 [id number] 2020-08-21 2020-08-23 [facility] 1. 2.840.114 [id number] [facility] 01:07:00 18:35:00 Encounter Mukul Gallardoy 350.1.13. 10 ity of [facility] 4.2.7.2.686 Jeff as [phone] [facility] 095 Branch 2020-08-21 2020-08-23 [facility] Ayleen 1.2.840.114 [id number] 01:07:00 18:35:00 Encounter Kelly Monique 350.1.13.10 [facility] 4.2.7.2.686 [id number] Results Test Description Test Time Test Comments Results Result Comments Source POCT GLUCOSE (AUTOMATED) 2020-12-17 15:43:35 Test Item Value Reference Range Interpretation Comme nts POCT GLU (test code = 9420190052) 129 mg/dL 70-110 H Lab Interpretation (test code = 93169-5) Abnormal [facility] METABOLIC PANEL (NA, K, CL, CO2, GLUCOSE, BUN, CREATININE, CA)2020-12-17 11:45:07 Test Item Value Reference Range Interpretation Comments NA (test code = 137 mmol/L 135-145 1783742110) K (test code = 3.5 mmol/L 3.5-5.0 1216880031) CL (test code = 103 mmol/L 98-108 3326008754) CO2 TOTAL (test code = 26 mmol/L 23-31 6508298240) AGAP (test code = 2-16 7127515530) BUN (test code = 11 mg/dL 7-23 5634341322) GLUCOSE (test code = 175 mg/dL 70-110 H 8530334555) CREATININE (test code = 0.62 mg/dL 0.60-1.25 7675383574) CALCIUM (test code = 9.0 mg/dL 8.6-10.6 5375128567) eGFR Calculation mL/min/1.73m2 (Non-) (test code = 8208472756) eGFR Calculation mL/min/1.73m2 () (test code = 0212718676) JAMES (test code = JAMES) Association of [...] tests). Lab Interpretation Abnormal (test code = 04217-6) [facility] WITH [id number] 11:07:27 Test Item Value Reference Range Interpretation [...] RDW-SD (test code = 45.2 fL 38.5-51.6 79242-1) RDW-CV (test code = 16.9 % 12.1-15.4 H 788-0) PLT (test code = See_Comment H [Automated 777-3) message] The sy stem which generated this result transmitted reference range : 150 - 328 10*3/ ?L. The reference r torito was not used to interpret this result as normal/abnormal . MPV (test code = 8.1 fL 9.8-13.0 L 74299-3) NRBC/100 WBC (test See_Comment [Automat ed code = 0609399184) message] The system which generated this result transmitted reference range : 0.0 - 10.0 /100 WBCs. The refer ence range was not u sed to interpret th is result as normal/abnormal . NRBC x10^3 (test code <0.01 See_Comment [Auto mated = 0137431086) message] The s ystem which generated this result transmitted reference range : 10*3/?L. The reference range was not used to interpret this result as normal/abnormal . GRAN MAT (NEUT) % 72.8 % (test code = 770-8) IMM GRAN % (test code 0.60 % = 0221351376) LYMPH % (test code = 18.4 % 736-9) MONO % (test code = 5.7 % 5905-5) EOS % (test code = 1.8 % 713-8) BASO % (test code = 0.7 % 706-2) GRAN MAT x10^3(ANC) 8.23 10*3/uL 1.99-6.95 H (test code = 4102777406) IMM GRAN x10^3 (test 0.07 10*3/uL 0.00-0.06 H code = 1632155737) LYMPH x10^3 (test code 2.08 10*3/uL 1.09-3.23 = 731-0) MONO x10^3 (test code 0.65 10*3/uL 0.36-1.02 = 742-7) EOS x10^3 (test code = 0.20 10*3/uL 0.06-0.53 711-2) BASO x10^3 (test code 0.08 10*3/uL 0.01-0.09 = 704-7) Lab Interpretation Abnormal (test code = 44644-4) [facility] GLUCOSE (AUTOMATED)2020-12-17 06:03:38 Test Item Value Reference Range Interpretation Comments POCT GLU (test code = 1080329051) 75 mg/dL 70-110 Lab Interpretation (test code = Normal 16208-5) [facility] [id number] 00:01:00 Test Item Value Reference Range Interpretation Comments VIT B6 (test code = 13.1 nmol/L 20.0-125.0 L INTERPRE TIVE 89948-6) INFORMATION: Vi tamin B6 (Pyridoxal 5-Phosphate) Pyridoxal 5'-phosphate me asured in a specimen collected follo wing an 8-hour or overnight fast accurately clara cates vitamin B6 nutritional sta tus. Non-fasting spe cimen concentration reflects recent vitamin intake. This test was develo ped and its perform ance characteristics determined by [facility]. I t has not been cleare d or approved by the [place] Food and Drug Administration. This test was perfor med in a CLIA certifie d laboratory and is intended for cl inical purposes.Perfor med By: [facility] [place] [address] [id number] Director: Namrata Klein MD Lab Interpretation Abnormal (test code = 49300-4) [facility] TIBIA FIBULA 2 VW [id number] 23:57:09 Tricompartmental knee joint osteoarthrosis.XR TIBIA FIBULA 2 VW LEFT INDICATION: Left lower extremity pain from knee down to ankle COMPARISON: None FINDINGS: Moderate to severe tricompartmental knee joint osteoarthrosis. Diffusemuscle atrophy and osteopenia. No acute fracture or dislocation. [facility], Radiant Results Inft User - 12/16/2020 5:58 PM CSTXR TIBIA FIBULA 2 VW LEFTINDICATION: Left lower extremity pain from knee down to ankle COMPARISON: NoneFINDINGS:Moderate to severe tricompartmental knee joint osteoarthrosis. Diffusemuscle atrophy and osteopenia. No acute fracture or dislocation.IMPRESSIONTricompartmental knee joint osteoarthrosis.[facility] GLUCOSE (AUTOMATED) 2020-12-16 23:27:00 Test Item Value Reference Range Interpretation Comments POCT GLU (test code = 1801378004) 114 mg/dL 70-110 H Lab Interpretation (test code = Abnormal 36910-7) [facility] GLUCOSE (AUTOMATED)2020-12-16 20:12:00 Test Item Value Reference Range Interpretation Comments POCT GLU (test code = 5096534040) 105 mg/dL 70-110 Lab Interpretation (test code = Normal 26612-5) [facility]2020-12-16 14:44:00 Test Item Value Reference Range Interpretation Comments POCT GLU (test code = 8554282621) 153 mg/dL 70-110 H Lab Interpretation (test code = Abnormal 64773-7) [facility] METABOLIC PANEL (NA, K, CL, CO2, GLUCOSE, BUN, CREATININE, CA)2020-12-16 14:23:00 Test Item Value Reference Range Interpretation Comments NA (test code = 138 mmol/L 135-145 7510969540) K (test code = 3.4 mmol/L 3.5-5.0 L 4269661314) CL (test code = 100 mmol/L 98-108 0291661594) CO2 TOTAL (test code = 31 mmol/L 23-31 6875498226) AGAP (test code = 2-16 1414094303) BUN (test code = 11 mg/dL 7-23 5597172316) GLUCOSE (test code = 162 mg/dL 70-110 H 7392701849) CREATININE (test code = 0.64 mg/dL 0.60-1.25 3091725793) CALCIUM (test code = 8.9 mg/dL 8.6-10.6 7890239233) eGFR Calculation mL/min/1.73m2 (Non-) (test code = 1536287512) eGFR Calculation mL/min/1.73m2 () (test code = 9772994611) JAMES (test code = JAMES) Association of [...] tests). Lab Interpretation Abnormal (test code = 56413-8) [facility] WITH [id number] 14:05:00 Test Item Value Reference Range Interpretation Comments WBC (test code = See_Comment H [Automated 2990-2) message] The sy stem which generated this [...] RDW-SD (test code = 45.4 fL 38.5-51.6 26612-9) RDW-CV (test code = 17.0 % 12.1-15.4 H 788-0) PLT (test code = See_Comment H [Automated 777-3) message] The sy stem which generated this result transmitted reference range : 150 - 328 10*3/ ?L. The reference r torito was not used to interpret this result as normal/abnormal . MPV (test code = 8.0 fL 9.8-13.0 L 58827-9) NRBC/100 WBC (test See_Comment [Automat ed code = 4288680759) message] The system which generated this result transmitted reference range : 0.0 - 10.0 /100 WBCs. The refer ence range was not u sed to interpret th is result as normal/abnormal . NRBC x10^3 (test code <0.01 See_Comment [Auto mated = 5700496661) message] The s ystem which generated this result transmitted reference range : 10*3/?L. The reference range was not used to interpret this result as normal/abnormal . GRAN MAT (NEUT) % 70.0 % (test code = 770-8) IMM GRAN % (test code 0.70 % = 3719093171) LYMPH % (test code = 20.5 % 736-9) MONO % (test code = 7.1 % 5905-5) EOS % (test code = 1.0 % 713-8) BASO % (test code = 0.7 % 706-2) GRAN MAT x10^3(ANC) 9.44 10*3/uL 1.99-6.95 H (test code = 7956302444) IMM GRAN x10^3 (test 0.09 10*3/uL 0.00-0.06 H code = 5318972664) LYMPH x10^3 (test code 2.76 10*3/uL 1.09-3.23 = 731-0) MONO x10^3 (test code 0.96 10*3/uL 0.36-1.02 = 742-7) EOS x10^3 (test code = 0.13 10*3/uL 0.06-0.53 711-2) BASO x10^3 (test code 0.10 10*3/uL 0.01-0.09 H = 704-7) Lab Interpretation Abnormal (test code = 81303-0) [facility] Center[facility] - Peripheral # [id number] 13:01:00 Test Item Value Reference Range Interpretation Comments Blood Culture-Aerobic No organisms No growth Previo us (test code = 55585-5) isolated prelim inary verified result was Culture In Progress on 12/11/2020 at 100 1 CSTPrevious preliminary verified result was No growth a t 24 hours on 12/12/2020 at 070 1 CSTPrevious preliminary verified result was No growth a t 48 hours on 12/13/2020 at 070 1 CSTPrevious preliminary verified result was No growth a t 72 hours on 12/14/2020 at 070 1 TITLE ABSTRACTOR Blood No organisms No growth Previous Culture-Anaerobic isolated preliminar y (test code = 71484-0) verifi ed result was Culture In Progress on 12/11/2020 at 100 1 CSTPrevious preliminary verified result was No growth a t 24 hours on 12/12/2020 at 070 1 CSTPrevious preliminary verified result was No growth a t 48 hours on 12/13/2020 at 070 1 CSTPrevious preliminary verified result was No growth a t 72 hours on 12/14/2020 at 070 1 TITLE ABSTRACTOR Lab Interpretation Normal (test code = 98748-5) [facility] Center[facility] - Peripheral # [id number] 13:01:00 Test Item Value Reference Range Interpretation Comments Blood Culture-Aerobic No organisms No growth Previo us (test code = 36979-5) isolated prelim inary verified result was Culture In Progress on 12/11/2020 at 100 1 CSTPrevious preliminary verified result was No growth a t 24 hours on 12/12/2020 at 070 1 CSTPrevious preliminary verified result was No growth a t 48 hours on 12/13/2020 at 070 1 CSTPrevious preliminary verified result was No growth a t 72 hours on 12/14/2020 at 070 1 TITLE ABSTRACTOR Blood No organisms No growth Previous Culture-Anaerobic isolated preliminar y (test code = 76552-9) verifi ed result was Culture In Progress on 12/11/2020 at 100 1 CSTPrevious preliminary verified result was No growth a t 24 hours on 12/12/2020 at 070 1 CSTPrevious preliminary verified result was No growth a t 48 hours on 12/13/2020 at 070 1 CSTPrevious preliminary verified result was No growth a t 72 hours on 12/14/2020 at 070 1 TITLE ABSTRACTOR Lab Interpretation Normal (test code = 20191-2) [facility] GLUCOSE (AUTOMATED)2020-12-16 04:01:00 Test Item Value Reference Range Interpretation Comments POCT GLU (test code = 0289640631) 156 mg/dL 70-110 H Lab Interpretation (test code = Abnormal 59316-8) [facility] GLUCOSE (AUTOMATED)2020-12-16 00:24:00 Test Item Value Reference Range Interpretation Comments POCT GLU (test code = 7324612725) 115 mg/dL 70-110 H Lab Interpretation (test code = Abnormal 57238-6) [facility] CHEST PULMONARY [id number] 23:34:55No pulmonary emboli. No interval change in [...] stableappearance of intra and extrahepatic biliary ductal dilatation.[facility] GLUCOSE (AUTOMATED)2020-12-15 19:28:00 Test Item Value Reference Range Interpretation Comments POCT GLU (test code = 9842766770) 140 mg/dL 70-110 H Lab Interpretation (test code = Abnormal 10336-4) [facility]MAG[facility]21[facility] 15:26:00 Test Item Value Reference Range Interpretation Comments MAGNESIUM (test code = 6251062770) 2.2 mg/dL 1.7-2.4 Lab Interpretation (test code = Normal 07232-3) [facility] GLUCOSE (AUTOMATED)2020-12-15 15:15:00 Test Item Value Reference Range Interpretation Comments POCT GLU (test code = 4193009761) 181 mg/dL 70-110 H Lab Interpretation (test code = Abnormal 97567-1) [facility] (NA, K, CL, CO2, GLUCOSE, BUN, CREATININE, CA)2020-12-15 13:07:00 Test Item Value Reference Range Interpretation Comments NA (test code = 136 mmol/L 135-145 9335252305) K (test code = 3.6 mmol/L 3.5-5.0 6410171717) CL (test code = 96 mmol/L 98-108 L 6631259724) CO2 TOTAL (test code = 29 mmol/L 23-31 9696368177) AGAP (test code = 2-16 0936191385) BUN (test code = 12 mg/dL 7-23 5496088809) GLUCOSE (test code = 183 mg/dL 70-110 H 8732416807) CREATININE (test code = 0.70 mg/dL 0.60-1.25 9961915550) CALCIUM (test code = 9.2 mg/dL 8.6-10.6 5765289288) eGFR Calculation mL/min/1.73m2 (Non-) (test code = 0327283906) eGFR Calculation mL/min/1.73m2 () (test code = 4817470463) JAMES (test code = JAMES) Association of [...] tests). Lab Interpretation Abnormal (test code = 28759-2) [facility] WITH [id number] 12:32:00 Test Item Value Reference Range Interpretation Comments WBC (test code = See_Comment H [Automated 3990-2) message] The system which generated this result transmit ronan reference range : 4.20 - 10.70 10*3/?L. The reference range was not used to interpret this result as normal/abnormal . RBC (test code = See_Comment H [Automated 109-8) message] The system which generated this result [...] RDW-SD (test code = 44.4 fL 38.5-51.6 98633-6) RDW-CV (test code = 17.7 % 12.1-15.4 H 788-0) PLT (test code = See_Comment H [Automated 777-3) message] The system which generated this result transmit ronan reference range : 150 - 328 10*3/ ?L. The reference range was not u sed to interpret th is result as normal/abnormal . MPV (test code = 8.1 fL 9.8-13.0 L 59713-0) NRBC/100 WBC (test See_Comment [Automat ed code = 7196027321) message] The system which generated this result transmit ronan reference range : 0.0 - 10.0 /100 WBCs. The reference range was not used to interpret this result as normal/abnormal . NRBC x10^3 (test code <0.01 See_Comment [Auto mated = 8309492300) message] The system which generated this result transmit ronan reference range : 10*3/?L. The reference range was not used to interpret this result as normal/abnormal . GRAN MAT (NEUT) % 74.5 % (test code = 770-8) IMM GRAN % (test code 0.70 % = 7359697049) LYMPH % (test code = 17.4 % 736-9) MONO % (test code = 6.8 % 5905-5) EOS % (test code = 0.2 % 713-8) BASO % (test code = 0.4 % 706-2) GRAN MAT x10^3(ANC) 11.99 10*3/uL 1.99-6.95 H (test code = 9978707059) IMM GRAN x10^3 (test 0.11 10*3/uL 0.00-0.06 H code = 0980422637) LYMPH x10^3 (test code 2.80 10*3/uL 1.09-3.23 = 731-0) MONO x10^3 (test code 1.10 10*3/uL 0.36-1.02 H = 742-7) EOS x10^3 (test code = 0.03 10*3/uL 0.06-0.53 L 711-2) BASO x10^3 (test code 0.06 10*3/uL 0.01-0.09 = 704-7) Lab Interpretation Abnormal (test code = 46567-8) [facility] GLUCOSE (AUTOMATED)2020-12-15 04:16:00 Test Item Value Reference Range Interpretation Comments POCT GLU (test code = 5740410853) 200 mg/dL 70-110 H Lab Interpretation (test code = Abnormal 78918-9) [facility] (THIAMINE), WHOLE [id number] 00:30:00 Test Item Value Reference Range Interpretation Comments Vitamin B1, Whole 136 nmol/L 70-180 INTERPRETI VE INFORMATION: Blood (test code = Vitamin B 1, Whole Blood 05924-0) This assay júnior ures the concentration o f thiamine diphosphate (TD P), the primary active form of vitamin B1. Nick roximately 90 percent of v itamin B1 present in whol e blood is TDP. Thiamine a nd thiamine monoph osphate, which comprise the remaining 10 pe rcent, are not measured. T his test was developed a nd its performance characteristics determined by [facility]. I t has not been cleared or approved by the [place] Food and Drug Administration. This test was performed i n a CLIA certified labor atory and is intended for clinical purposes.Perfor med By: [facility] [place] [address] [id number] aboratory Director: Namrata Klein MD [facility] GLUCOSE (AUTOMATED)2020-12-14 23:35:00 Test Item Value Reference Range Interpretation Comments POCT GLU (test code = 9709869926) 151 mg/dL 70-110 H Lab Interpretation (test code = Abnormal 68781-3) [facility] GLUCOSE (AUTOMATED)2020-12-14 19:19:00 Test Item Value Reference Range Interpretation Comments POCT GLU (test code = 7444821485) 193 mg/dL 70-110 H Lab Interpretation (test code = Abnormal 31977-5) [facility] GLUCOSE (AUTOMATED)2020-12-14 15:22:00 Test Item Value Reference Range Interpretation Comments POCT GLU (test code = 9395860283) 221 mg/dL 70-110 H Lab Interpretation (test code = Abnormal 33245-4) [facility] GLUCOSE (AUTOMATED)2020-12-14 02:37:00 Test Item Value Reference Range Interpretation Comments POCT GLU (test code = 5717964672) 210 mg/dL 70-110 H Lab Interpretation (test code = Abnormal 72880-9) [facility] GLUCOSE (AUTOMATED)2020-12-13 23:33:00 Test Item Value Reference Range Interpretation Comments POCT GLU (test code = 9209018871) 182 mg/dL 70-110 H Lab Interpretation (test code = Abnormal 73855-7) [facility] GLUCOSE (AUTOMATED)2020-12-13 18:09:00 Test Item Value Reference Range Interpretation Comments POCT GLU (test code = 2419857401) 150 mg/dL 70-110 H Lab Interpretation (test code = Abnormal 15645-6) [facility] METABOLIC PANEL (NA, K, CL, CO2, GLUCOSE, BUN, CREATININE, CA)2020-12-13 16:27:00 Test Item Value Reference Range Interpretation Comments NA (test code = 136 mmol/L 135-145 4186529161) K (test code = 3.7 mmol/L 3.5-5.0 9916859587) CL (test code = 96 mmol/L 98-108 L 6042297311) CO2 TOTAL (test code = 29 mmol/L 23-31 4526116415) AGAP (test code = 2-16 3446996955) BUN (test code = 6 mg/dL 7-23 L 9979726988) GLUCOSE (test code = 212 mg/dL 70-110 H 1913708976) CREATININE (test code = 0.61 mg/dL 0.60-1.25 8444173180) CALCIUM (test code = 9.5 mg/dL 8.6-10.6 5938016037) eGFR Calculation mL/min/1.73m2 (Non-) (test code = 1315484802) eGFR Calculation mL/min/1.73m2 () (test code = 3675388651) JAMES (test code = JAMES) Association of [...] tests). Lab Interpretation Abnormal (test code = 08242-8) [facility] WITH [id number] 16:10:00 Test Item Value Reference Range Interpretation Comments WBC (test code = See_Comment H [Automated 5190-2) message] The sy stem which generated this result transmitted reference range : 4.20 - 10.70 10*3/?L. The reference range was not used to interpret this result as normal/abnormal . RBC (test code = See_Comment H [Automated 149-8) message] The sy stem which [...] RDW-SD (test code = 43.3 fL 38.5-51.6 44051-5) RDW-CV (test code = 16.2 % 12.1-15.4 H 788-0) PLT (test code = See_Comment H [Automated 777-3) message] The sy stem which generated this result transmitted reference range : 150 - 328 10*3/ ?L. The reference r torito was not used to interpret this result as normal/abnormal . MPV (test code = 8.2 fL 9.8-13.0 L 96556-3) NRBC/100 WBC (test See_Comment [Automat ed code = 5672739145) message] The system which generated this result transmitted reference range : 0.0 - 10.0 /100 WBCs. The refer ence range was not u sed to interpret th is result as normal/abnormal . NRBC x10^3 (test code <0.01 See_Comment [Auto mated = 8622300288) message] The s ystem which generated this result transmitted reference range : 10*3/?L. The reference range was not used to interpret this result as normal/abnormal . GRAN MAT (NEUT) % 86.2 % (test code = 770-8) IMM GRAN % (test code 0.70 % = 0737185872) LYMPH % (test code = 10.2 % 736-9) MONO % (test code = 2.5 % 5905-5) EOS % (test code = 0.1 % 713-8) BASO % (test code = 0.3 % 706-2) GRAN MAT x10^3(ANC) 9.61 10*3/uL 1.99-6.95 H (test code = 5783779794) IMM GRAN x10^3 (test 0.08 10*3/uL 0.00-0.06 H code = 1163807355) LYMPH x10^3 (test code 1.14 10*3/uL 1.09-3.23 = 731-0) MONO x10^3 (test code 0.28 10*3/uL 0.36-1.02 L = 742-7) EOS x10^3 (test code = <0.03 0.06-0.53 L 711-2) BASO x10^3 (test code 0.03 10*3/uL 0.01-0.09 = 704-7) Lab Interpretation Abnormal (test code = 93725-3) [facility]2020-12-13 14:16:00 Test Item Value Reference Range Interpretation Comments POCT GLU (test code = 6369024486) 236 mg/dL 70-110 H Lab Interpretation (test code = Abnormal 34157-4) [facility] COVID [id number] 04:58:00COVID DMT InterpretationInterpretation/Recommendations: Molecular NAAT Tests for [...] testing the patient has had at [facility], including molecular NAAT testing (more commonly known asPCR testing and Rapid ID Now testing) and antibody testing. It does not take into account any testing that a patient has had outside of the [facility] medical record. [facility] LABORATORY SERVICESCOVID ResultsSARS -CoV-2 Rapid ID NOW (no units) ? ? Date ? Value ? 12/11/2020 ? Not Detected ? ? ? 11/16/2020 ? Not Detected ? ? ? 08/21/2020 ? Not Detected ? [facility]2020-12-13 03:11:00 Test Item Value Reference Range Interpretation Comments POCT GLU (test code = 3309812176) 171 mg/dL 70-110 H Lab Interpretation (test code = Abnormal 88476-6) [facility] GLUCOSE (AUTOMATED)2020-12-13 00:00:00 Test Item Value Reference Range Interpretation Comments POCT GLU (test code = 0880585509) 118 mg/dL 70-110 H Lab Interpretation (test code = Abnormal 33013-5) [facility] GLUCOSE (AUTOMATED)2020-12-12 20:29:00 Test Item Value Reference Range Interpretation Comments POCT GLU (test code = 2027524979) 173 mg/dL 70-110 H Lab Interpretation (test code = Abnormal 10322-8) [facility] CenterUS ABDOMEN [id number] 19:56:17 1. ?Hepatic steatosis. However, limited evaluation [...] main portal veinwasevaluated with color Doppler imaging. Clamp Carrier Operator images were obtainedfor the record. COMPARISON: [...] normal where visualized. SPLEEN:No images were obtained. [facility], Radiant Results Inft User - 12/12/2020 1:57 PM CSTEXAM: USABDOMEN LIMITEDHISTORY: 70 years-old male with RUQ ultrasound to assess for common bileduct dilation.TECHNIQUE: Limited abdominal ultrasound focused on the liver, biliarysystem, pancreas, and spleen was performed. The main portal vein wasevaluated with color Doppler imaging. Clamp Carrier Operator images were obtainedfor the record.COMPARISON: Ultrasound [...] have reviewed this study and agreewith the abovereport.[facility]2020-12-12 19:24:00 Test Item Value Reference Range Interpretation Comments POCT GLU (test code = 2460388065) 230 mg/dL 70-110 H Lab Interpretation (test code = Abnormal 78354-1) [facility] CHEST 1 [id number] 15:16:46 Low lung volumes with mild perihilar [...] reviewed this study and agree with theabove report.[facility]2020-12-12 14:34:00 Test Item Value Reference Range Interpretation Comments POCT GLU (test code = 5640254901) 225 mg/dL 70-110 H Lab Interpretation (test code = Abnormal 08859-3) [facility] CenterURINE [id number] 13:28:00 Test Item Value Reference Range Interpretation Comments URINE CULTURE (test < 10,000 CFU/mL mixed code = 630-4) aerobic organisms - suggests endogenous microbial contamination [facility]Basic [facility] (NA, K, CL, CO2, GLUCOSE, BUN, CREATININE, CA)2020-12-12 10:05:00 Test Item Value Reference Range Interpretation Comments NA (test code = 136 mmol/L 135-145 3814188044) K (test code = 3.5 mmol/L 3.5-5.0 7974810944) CL (test code = 100 mmol/L 98-108 5940343474) CO2 TOTAL (test code = 31 mmol/L 23-31 2114447456) AGAP (test code = 2-16 7885237730) BUN (test code = 7 mg/dL 7-23 8218864585) GLUCOSE (test code = 259 mg/dL 70-110 H 9016998440) CREATININE (test code = 0.63 mg/dL 0.60-1.25 9286243157) CALCIUM (test code = 8.5 mg/dL 8.6-10.6 L 7241906673) eGFR Calculation mL/min/1.73m2 (Non-) (test code = 2215282832) eGFR Calculation mL/min/1.73m2 () (test code = 2582073101) JAMES (test code = JAMES) Association of [...] tests). Lab Interpretation Abnormal (test code = 55692-8) [facility] CenterMagnesium [id number] 10:05:00 Test Item Value Reference Range Interpretation Comments MAGNESIUM (test code = 0189378355) 1.9 mg/dL 1.7-2.4 Lab Interpretation (test code = Normal 56662-1) [facility] with [id number] 09:48:00 Test Item Value Reference Range Interpretation Comments WBC (test code = See_Comment [Automated 7977-2) message] The sy stem which generated this [...] RDW-SD (test code = 46.0 fL 38.5-51.6 72472-8) RDW-CV (test code = 16.1 % 12.1-15.4 H 788-0) PLT (test code = See_Comment H [Automated 777-3) message] The sy stem which generated this result transmitted reference range : 150 - 328 10*3/ ?L. The reference r torito was not used to interpret this result as normal/abnormal . MPV (test code = 8.6 fL 9.8-13.0 L 05832-0) NRBC/100 WBC (test See_Comment [Automat ed code = 2323864360) message] The system which generated this result transmitted reference range : 0.0 - 10.0 /100 WBCs. The refer ence range was not u sed to interpret th is result as normal/abnormal . NRBC x10^3 (test code <0.01 See_Comment [Auto mated = 9695345270) message] The s ystem which generated this result transmitted reference range : 10*3/?L. The reference range was not used to interpret this result as normal/abnormal . GRAN MAT (NEUT) % 70.2 % (test code = 770-8) IMM GRAN % (test code 0.30 % = 4773876604) LYMPH % (test code = 18.8 % 736-9) MONO % (test code = 5.0 % 5905-5) EOS % (test code = 5.2 % 713-8) BASO % (test code = 0.5 % 706-2) GRAN MAT x10^3(ANC) 6.05 10*3/uL 1.99-6.95 (test code = 1423824354) IMM GRAN x10^3 (test 0.03 10*3/uL 0.00-0.06 code = 8744486443) LYMPH x10^3 (test code 1.62 10*3/uL 1.09-3.23 = 731-0) MONO x10^3 (test code 0.43 10*3/uL 0.36-1.02 = 742-7) EOS x10^3 (test code = 0.45 10*3/uL 0.06-0.53 711-2) BASO x10^3 (test code 0.04 10*3/uL 0.01-0.09 = 704-7) Lab Interpretation Abnormal (test code = 43936-1) [facility] GLUCOSE (AUTOMATED)2020-12-12 03:42:00 Test Item Value Reference Range Interpretation Comments POCT GLU (test code = 196 mg/dL 70-110 H Notifi ed Provider [id number]) Lab Interpretation (test Abnormal code = 43626-0) [facility] CenterFOLATE2021-[facility] 02:24:00 Test Item Value Reference Range Interpretation Comments FOLATE SER (test code = 1542526746) 5.8 ng/mL 3.0-20.0 Lab Interpretation (test code = Normal 03020-4) [facility] CenterVITAMIN B12, [id number] 00:55:00 Test Item Value Reference Range Interpretation Comments VIT B12 (test code = 844 pg/mL 240-930 5681006092) JAMES (test code = JAMES) Biotin has been reported to cause a positive bias, interpret results relative to patient's use of biotin. Lab Interpretation (test Normal code = 17577-4) [facility]2020-12-12 00:14:00 Test Item Value Reference Range Interpretation Comments POCT GLU (test code = 1781513399) 164 mg/dL 70-110 H Lab Interpretation (test code = Abnormal 00920-0) [facility] CenterCREATINE [id number] 23:42:00 Test Item Value Reference Range Interpretation Comments CK (test code = 4309858200) <20 33-194 L Lab Interpretation (test code = Abnormal 46666-5) [facility] [id number] 23:17:00 Test Item Value Reference Range Interpretation Comments TSH (test code = See_Comment Biotin has been [id number]) reported to cau se a negative bias, interpret resul ts relative to pat sanju's use of biotin. [Automated mess age] The system [employer] generated this result transmitted ref erence range: 0.45 - 4 .70 mIU/L. The refe rence range was not u sed to interpret this result as normal/abnor mal. Lab Interpretation (test Normal code = 87067-4) [facility] CenterXR HIPS 3 VW [id number] 21:41:53No appreciable fracture lines. RL: 6200 ICAL [...] osseous erosions.IMPRESSIONNo appreciable fracture lines.RL: 6200 [facility] 20:00:00 Test Item Value Reference Range Interpretation Comments Procalcitonin (test 0.13 ng/mL <0.07 H code = 0569616172) JAMES (test code = JAMES) INTERPRETATION OF [...] biotics/default.asp Lab Interpretation Abnormal (test code = 37226-0) [facility]2020-12-11 19:07:00 Test Item Value Reference Range Interpretation Comments POCT GLU (test code = 8009558710) 274 mg/dL 70-110 H Lab Interpretation (test code = Abnormal 02485-0) [facility]MAGNESIUM2021-03-01 18:31:00 Test Item Value Reference Range Interpretation Comments MAGNESIUM (test code = 8243626475) 1.9 mg/dL 1.7-2.4 Lab Interpretation (test code = Normal 63444-0) [facility] CenterFERRITIN [id number] 18:31:00 Test Item Value Reference Range Interpretation Comments FERRITIN (test code = 178.0 ng/mL 18.0-464.0 0371838224) JAMES (test code = JAMES) Biotin has been reported to cause a negative bias, interpret results relative to patient's use of biotin. Lab Interpretation (test Normal code = 00261-8) [facility] HEAD WO [id number] 14:36:47 No acute intracranial abnormality. Dilated ventricles [...] reviewed this study and agree with the abovereport.[facility]URINALYSIS20[facility] 14:28:00 Test Item Value Reference Range Interpretation Comments APPEARANCE (test code = Clear Clear 3418570521) COLOR (test code = Yellow Yellow 3925341745) PH (test code = 4.8-8.0 9981972922) SP GRAVITY (test code = 1.003-1.030 3798223573) GLU U QUAL (test code = 500 mg/dL Normal A 9727312502) BLOOD (test code = Negative Negative 7213543461) KETONES (test code = 5 mg/dL Negative A 2171601621) PROTEIN (test code = Negative Negative 2887-8) UROBILIN (test code = Normal Normal 8019929816) BILIRUBIN (test code = Negative Negative 7262652328) NITRITE (test code = Negative Negative 6047495527) LEUK RYAN (test code = Negative Negative 0952424909) RBC/HPF (test code = See_Comment [Autom ated message] 6639115097) The system [employer] generated this result transmit ronan reference range : 0 - 3 HPF. The refe rence range was not u sed to interpret th is result as normal/abnormal . WBC/HPF (test code = See_Comment [Autom ated message] 3709798991) The system [employer] generated this result transmit ronan reference range : 0 - 5 HPF. The refe rence range was not u sed to interpret th is result as normal/abnormal . BACTERIA (test code = Negative Negative 5493085959) MUCOUS (test code = Slight Negative LPF A 4674322794) SQ EPITH (test code = HPF 1978165697) Lab Interpretation (test Abnormal code = 04041-5) [facility] CenterCOVID-19 (ID NOW RAPID TESTING)2020-12-11 13:10:00 Test Item Value Reference Range Interpretation Comments SARS-CoV-2 Rapid ID NOW Not Detected Not Detected (test code = 91302-8) JAMES (test code = JAMES) ID NOW COVID-19 Assay is an isothermal nucleic acid amplification test intended for the qualitative detection of nucleic acid from SARS-CoV-2 viral RNA in nasopharyngeal ([employer]ENT[employer] CLERK) specimens. It is used under Emergency [...] indicated. Lab Interpretation Normal (test code = 24970-6) [facility]. METABOLIC PANEL (06909)2020-12-11 12:29:00 Test Item Value Reference Range Interpretation Comments NA (test code = 136 mmol/L 135-145 7519801945) K (test code = 3.5 mmol/L 3.5-5.0 9899792975) CL (test code = 95 mmol/L 98-108 L 5684851037) CO2 TOTAL (test code = 35 mmol/L 23-31 H 3940413378) AGAP (test code = 2-16 9427114103) BUN (test code = 9 mg/dL 7-23 7756782401) GLUCOSE (test code = 329 mg/dL 70-110 H 3323355359) CREATININE (test code = 0.72 mg/dL 0.60-1.25 0509745936) TOTAL BILI (test code = 0.6 mg/dL 0.1-1.8 7534010253) CALCIUM (test code = 9.0 mg/dL 8.6-10.6 7778820893) T PROTEIN (test code = 6.8 g/dL 6.3-8.2 0952245694) ALBUMIN (test code = 3.8 g/dL 3.5-5.0 6274329462) ALK PHOS (test code = 288 U/L 34-122 H 7477172394) ALTv (test code = 46 U/L 5-50 1742-6) AST(SGOT) (test code = 38 U/L 13-40 9849021145) eGFR Calculation mL/min/1.73m2 (Non-) (test code = 3759612533) eGFR Calculation mL/min/1.73m2 () (test code = 2940732230) JAMES (test code = JAMES) Association of [...] tests). Lab Interpretation Abnormal (test code = 27599-1) [facility] CenterLactic Acid Whole [id number] 12:23:00 Test Item Value Reference Range Interpretation Comments LACTIC ACID (test code = 2.09 mmol/L 0.50-2.20 5054995861) Lab Interpretation (test code = Normal 34546-4) [facility] WITH [id number] 12:17:00 Test Item Value Reference Range Interpretation Comments WBC (test code = See_Comment H [Automated 4059-2) message] The sy stem which generated this result transmitted reference range : 4.20 - 10.70 10*3/?L. The reference range was not used to interpret this result as normal/abnormal . RBC (test code = See_Comment [Automated 945-8) message] The sy stem which generated this [...] RDW-SD (test code = 44.9 fL 38.5-51.6 47901-6) RDW-CV (test code = 15.9 % 12.1-15.4 H 788-0) PLT (test code = See_Comment H [Automated 777-3) message] The sy stem which generated this result transmitted reference range : 150 - 328 10*3/ ?L. The reference r torito was not used to interpret this result as normal/abnormal . MPV (test code = 8.3 fL 9.8-13.0 L 83125-5) NRBC/100 WBC (test See_Comment [Automat ed code = 4113925671) message] The system which generated this result transmitted reference range : 0.0 - 10.0 /100 WBCs. The refer ence range was not u sed to interpret th is result as normal/abnormal . NRBC x10^3 (test code <0.01 See_Comment [Auto mated = 1620042179) message] The s ystem which generated this result transmitted reference range : 10*3/?L. The reference range was not used to interpret this result as normal/abnormal . GRAN MAT (NEUT) % 77.9 % (test code = 770-8) IMM GRAN % (test code 0.50 % = 4111396369) LYMPH % (test code = 12.2 % 736-9) MONO % (test code = 5.2 % 5905-5) EOS % (test code = 3.7 % 713-8) BASO % (test code = 0.5 % 706-2) GRAN MAT x10^3(ANC) 9.57 10*3/uL 1.99-6.95 H (test code = 1806790527) IMM GRAN x10^3 (test 0.06 10*3/uL 0.00-0.06 code = 6588381399) LYMPH x10^3 (test code 1.50 10*3/uL 1.09-3.23 = 731-0) MONO x10^3 (test code 0.64 10*3/uL 0.36-1.02 = 742-7) EOS x10^3 (test code = 0.46 10*3/uL 0.06-0.53 711-2) BASO x10^3 (test code 0.06 10*3/uL 0.01-0.09 = 704-7) Lab Interpretation Abnormal (test code = 68969-1) [facility] CenterLAB ONLY COVID [id number] 18:43:00COVID DMT InterpretationInterpretation/Recommendations: Molecular NAAT Test Results [...] a nasopharyngeal sample, there is approximately a jut-rg-mxjlj chance that the patient was infected and [...] aggregate data pooled from the [facility] medical recordincluding both current and prior COVID-19 related testing results for the following tests offered atour institution:A. Tests for the Identification of SARS-CoV-2 RNA:SARS-CoV-2 PCR assays including [place] Aptima, [place] Fusion, Barrett RealTime, and Ubisense Xpert Xpress. SARS-CoV-2 Rapid ID NOW by the ID NOW assay. ? B. Tests for the Identification of SARS-CoV-2 Antibodies: Chemiluminescent immunoassays including Access SARS-CoV-2 IgM (DXI 600), VITROS Yeba-KXAQ-HpS-2 IgG (Vitros 5600 and Vitros 3600), and Barrett SARS-CoV-2 IgG ([employer]OOK[employer] I System). These interpretation comments assume that only the above testing was utilized and that the approved acceptable specimen type(s) were used for a given test. These interpretations are autopopulated into 3 Four 5 Group based on computerized algorithms matching an interpretation code number to the patient's set of test results. While a clinical pathologist evaluates the combinations for clinical accuracy, clinical correlation is recommended as it may not take into account very remote prior testing. Furthermore, it does not consider testing a patient may have had outside of the [facility] system. Additionally, it should be noted that the computerized algorithm treats the results for PCR testing and Rapid ID NOW testing (also PCR) synonymously, and thus, refers to both testing methodologies as PCR tests. Given that the sensitivity of [facility]'s Rapid ID NOW testing platform is [...] panel may be beneficialin this setting. [facility] LABORATORY SERVICESCOVID UwnebpmHMLL-YgK-1 Rapid ID NOW (no units) ? ? Date ? Value ? 08/21/2020 ? Not Detected ? [facility] LABORATORY SERVICESUnMethodist [facility] HospitalPOCT GLUCOSE (AUTOMATED)2020-08-23 18:25:00 Test Item Value Reference Range Interpretation Comments POCT GLU (test code = 4092109817) 297 mg/dL 70-110 H Lab Interpretation (test code = Abnormal 29188-0) [facility]2020-08-23 14:25:00 Test Item Value Reference Range Interpretation Comments POCT GLU (test code = 2100823274) 181 mg/dL 70-110 H Lab Interpretation (test code = Abnormal 02553-1) [facility] Metabolic Panel (NA, K, CL, CO2, GLUCOSE, BUN, CREATININE, CA)2020-08-23 11:45:00 Test Item Value Reference Range Interpretation Comments NA (test code = 132 mmol/L 135-145 L 8113813287) K (test code = 4.0 mmol/L 3.5-5 1812434748) CL (test code = 96 mmol/L 98-108 L 9130900798) CO2 TOTAL (test code = 33 mmol/L 23-31 H 7320005915) AGAP (test code = 2-16 1465713805) BUN (test code = 9 mg/dL 7-23 9506313865) GLUCOSE (test code = 176 mg/dL 70-110 H 1094354643) CREATININE (test code = 0.66 mg/dL 0.6-1.25 3252467536) CALCIUM (test code = 8.5 mg/dL 8.6-10.6 L 5524152510) eGFR Calculation mL/min/1.73m2 (Non-) (test code = 7961344814) eGFR Calculation mL/min/1.73m2 () (test code = 1376099596) JAMES (test code = JAMES) Association of [...] tests). Lab Interpretation Abnormal (test code = 07472-0) [facility] CenterMagnesium [id number] 11:45:00 Test Item Value Reference Range Interpretation Comments MAGNESIUM (test code = 2573919473) 2.0 mg/dL 1.7-2.4 Lab Interpretation (test code = Normal 95701-2) [facility] with Pnsixczbbdwg2367-79-67 11:38:00 Test Item Value Reference Range Interpretation Comments WBC (test code = See_Comment [Automated 5090-2) message] The sy stem which generated this result transmitted reference range : 4.20 - 10.70 10*3/?L. The reference range was not used to interpret this result as normal/abnormal . RBC (test code = See_Comment [Automated 909-8) message] The sy stem which [...] RDW-SD (test code = 41.8 fL 38.5-51.6 04185-3) RDW-CV (test code = 14.3 % 12.1-15.4 788-0) PLT (test code = See_Comment H [Automated 777-3) message] The sy stem which generated this result transmitted reference range : 150 - 328 10*3/ ?L. The reference r torito was not used to interpret this result as normal/abnormal . MPV (test code = 8.0 fL 9.8-13 L 62843-5) NRBC/100 WBC (test See_Comment [Automat ed code = 1304670072) message] The system which generated this result transmitted reference range : 0.0 - 10.0 /100 WBCs. The refer ence range was not u sed to interpret th is result as normal/abnormal . NRBC x10^3 (test code <0.01 See_Comment [Auto mated = 2632133393) message] The s ystem which generated this result transmitted reference range : 10*3/?L. The reference range was not used to interpret this result as normal/abnormal . GRAN MAT (NEUT) % 61.5 % (test code = 770-8) IMM GRAN % (test code 2.00 % = 9914239074) LYMPH % (test code = 25.5 % 736-9) MONO % (test code = 6.3 % 5905-5) EOS % (test code = 3.7 % 713-8) BASO % (test code = 1.0 % 706-2) GRAN MAT x10^3(ANC) 5.29 10*3/uL 1.99-6.95 (test code = 6894244353) IMM GRAN x10^3 (test 0.17 10*3/uL 0-0.06 H code = 4647345221) LYMPH x10^3 (test code 2.19 10*3/uL 1.09-3.23 = 731-0) MONO x10^3 (test code 0.54 10*3/uL 0.36-1.02 = 742-7) EOS x10^3 (test code = 0.32 10*3/uL 0.06-0.53 711-2) BASO x10^3 (test code 0.09 10*3/uL 0.01-0.09 = 704-7) Lab Interpretation Abnormal (test code = 84866-9) [facility] GLUCOSE (AUTOMATED)2020-08-23 10:22:00 Test Item Value Reference Range Interpretation Comments POCT GLU (test code = 6587592338) 164 mg/dL 70-110 H Lab Interpretation (test code = Abnormal 01548-9) [facility] GLUCOSE (AUTOMATED)2020-08-23 05:56:00 Test Item Value Reference Range Interpretation Comments POCT GLU (test code = 0025783413) 242 mg/dL 70-110 H Lab Interpretation (test code = Abnormal 88764-5) [facility] GLUCOSE (AUTOMATED)2020-08-23 03:02:00 Test Item Value Reference Range Interpretation Comments POCT GLU (test code = 6132904533) 210 mg/dL 70-110 H Lab Interpretation (test code = Abnormal 64474-2) [facility] GLUCOSE (AUTOMATED)2020-08-22 23:40:00 Test Item Value Reference Range Interpretation Comments POCT GLU (test code = 4086372993) 267 mg/dL 70-110 H Lab Interpretation (test code = Abnormal 62875-8) [facility] GLUCOSE (AUTOMATED)2020-08-22 19:08:00 Test Item Value Reference Range Interpretation Comments POCT GLU (test code = 9276925138) 191 mg/dL 70-110 H Lab Interpretation (test code = Abnormal 77894-7) [facility] GLUCOSE (AUTOMATED)2020-08-22 13:50:00 Test Item Value Reference Range Interpretation Comments POCT GLU (test code = 6420664900) 174 mg/dL 70-110 H Lab Interpretation (test code = Abnormal 46589-1) [facility] CenterURINE [id number] 12:59:00 Test Item Value Reference Range Interpretation Comments URINE CULTURE (test No aerobic growth (< code = 630-4) 1000 CFU/mL) [facility] with Rqsoukdepzfe0760-84-30 11:28:00 Test Item Value Reference Range Interpretation [...] RDW-SD (test code = 42.5 fL 38.5-51.6 13277-5) RDW-CV (test code = 14.5 % 12.1-15.4 788-0) PLT (test code = See_Comment H [Automated 777-3) message] The sy stem which generated this result transmitted reference range : 150 - 328 10*3/ ?L. The reference r torito was not used to interpret this result as normal/abnormal . MPV (test code = 8.0 fL 9.8-13 L 54521-9) NRBC/100 WBC (test See_Comment [Automat ed code = 5122420544) message] The system which generated this result transmitted reference range : 0.0 - 10.0 /100 WBCs. The refer ence range was not u sed to interpret th is result as normal/abnormal . NRBC x10^3 (test code <0.01 See_Comment [Auto mated = 1411817885) message] The s ystem which generated this result transmitted reference range : 10*3/?L. The reference range was not used to interpret this result as normal/abnormal . GRAN MAT (NEUT) % 69.1 % (test code = 770-8) IMM GRAN % (test code 2.20 % = 0187407370) LYMPH % (test code = 20.9 % 736-9) MONO % (test code = 5.8 % 5905-5) EOS % (test code = 1.0 % 713-8) BASO % (test code = 1.0 % 706-2) GRAN MAT x10^3(ANC) 6.51 10*3/uL 1.99-6.95 (test code = 4403740693) IMM GRAN x10^3 (test 0.21 10*3/uL 0-0.06 H code = 9870080040) LYMPH x10^3 (test code 1.97 10*3/uL 1.09-3.23 = 731-0) MONO x10^3 (test code 0.55 10*3/uL 0.36-1.02 = 742-7) EOS x10^3 (test code = 0.09 10*3/uL 0.06-0.53 711-2) BASO x10^3 (test code 0.09 10*3/uL 0.01-0.09 = 704-7) BASO STIPPLING (test Present A code = 703-9) BANDS (test code = Increased A 8939476868) TOXIC CHANGES (test Present A code = 803-7) Lab Interpretation Abnormal (test code = 03893-6) [facility] Metabolic Panel (NA, K, CL, CO2, GLUCOSE, BUN, CREATININE, CA)2020-08-22 11:12:00 Test Item Value Reference Range Interpretation Comments NA (test code = 135 mmol/L 135-145 7514746791) K (test code = 3.6 mmol/L 3.5-5 3067677701) CL (test code = 99 mmol/L 98-108 1178162348) CO2 TOTAL (test code = 31 mmol/L 23-31 0087136606) AGAP (test code = 2-16 7408477181) BUN (test code = 9 mg/dL 7-23 7538440213) GLUCOSE (test code = 198 mg/dL 70-110 H 0713645281) CREATININE (test code = 0.72 mg/dL 0.6-1.25 2360714989) CALCIUM (test code = 8.3 mg/dL 8.6-10.6 L 3225576886) eGFR Calculation mL/min/1.73m2 (Non-) (test code = 6434140435) eGFR Calculation mL/min/1.73m2 () (test code = 4397645029) JAMES (test code = JAMES) Association of [...] tests). Lab Interpretation Abnormal (test code = 96128-7) [facility] CenterMagnesium [id number] 11:12:00 Test Item Value Reference Range Interpretation Comments MAGNESIUM (test code = 3501771500) 2.0 mg/dL 1.7-2.4 Lab Interpretation (test code = Normal 70886-0) [facility] CenterLipid Panel (Total Cholesterol, Triglycerides, HDL) - [id number] 11:12:00 Test Item Value Reference Range Interpretation Comments CHOL (test code = 155 mg/dL 120-200 6759594825) HDL (test code = 42 mg/dL >40 9067089370) HDLC RATIO (test code = See_Comment [Au tomated message] 0265206389) The system [employer] generated this result transmit ronan reference range : <=5.0. The refe rence range was not u sed to interpret th is result as normal/abnormal . TRIG (test code = 186 mg/dL 30-170 H 8062148540) LDL CHOL (test code = 76 mg/dL See_Comment [Auto mated message] 18947-9) The system [employer] generated this result transmit ronan reference range : <=160. The refe rence range was not u sed to interpret th is result as normal/abnormal . VLDL (test code = 37 mg/dL 5-60 7366222430) Lab Interpretation (test Abnormal code = 84919-6) [facility] CenterHEPATIC FUNCTION PANEL (44004) (ALB,T.PRO,BILI T,BU/BC,ALT,AST,ALK PHOS)2020-08-22 11:12:00 Test Item Value Reference Range Interpretation Comments TOTAL BILI (test code = 6480251716) 0.6 mg/dL 0.1-1.1 BILI UNCON (test code = 7885194501) 0.2 mg/dL 0.1-1.1 BILI CONJ (test code = 6545856686) 0.0 mg/dL 0-0.3 T PROTEIN (test code = 3147089620) 6.0 g/dL 6.3-8.2 L ALBUMIN (test code = 9805365128) 2.8 g/dL 3.5-5 L ALK PHOS (test code = 0222217748) 222 U/L 34-122 H ALTv (test code = 1742-6) 27 U/L 5-50 AST(SGOT) (test code = 9903296770) 30 U/L 13-40 Lab Interpretation (test code = Abnormal 52389-3) [facility] GLUCOSE (AUTOMATED)2020-08-22 10:11:00 Test Item Value Reference Range Interpretation Comments POCT GLU (test code = 1573481330) 196 mg/dL 70-110 H Lab Interpretation (test code = Abnormal 55550-9) [facility] GLUCOSE (AUTOMATED)2020-08-22 07:15:00 Test Item Value Reference Range Interpretation Comments POCT GLU (test code = 9868986434) 183 mg/dL 70-110 H Lab Interpretation (test code = Abnormal 20910-4) [facility] GLUCOSE (AUTOMATED)2020-08-22 02:30:00 Test Item Value Reference Range Interpretation Comments POCT GLU (test code = 2330823402) 295 mg/dL 70-110 H Lab Interpretation (test code = Abnormal 45841-3) [facility] GLUCOSE (AUTOMATED)2020-08-21 23:46:00 Test Item Value Reference Range Interpretation Comments POCT GLU (test code = 0100519668) 258 mg/dL 70-110 H Lab Interpretation (test code = Abnormal 24041-7) [facility] CenterC-REACTIVE [id number] 18:50:00 Test Item Value Reference Range Interpretation Comments CRP (test code = 4861137088) 15.5 mg/dL <0.8 H Lab Interpretation (test code = Abnormal 97748-1) [facility] GLUCOSE (AUTOMATED)2020-08-21 18:21:00 Test Item Value Reference Range Interpretation Comments POCT GLU (test code = 8976050979) 297 mg/dL 70-110 H Lab Interpretation (test code = Abnormal 89087-3) [facility] CenterETHANOL2020-11-09 16:24:00 Test Item Value Reference Range Interpretation Comments ALCOHOL (test code = <10 mg/dL 4017552540) JAMES (test code = Toxic Greater than or JAMES) equal to 80 mg/dL. NOTE: Whole blood values are approximately 10% to 15% lower than serum and plasma. [facility] ONLY - URINE DRUG (IMMUNOASSAY) - 4 ER [id number] 15:36:00 Test Item Value Reference Range Interpretation Comments AMPHET (test code = Negative Negative 5671646268) Cocaine Metabolite (test Negative Negative code = 8722555534) OPIATES (test code = Presumptive Positive Negative A 4692772503) THC (test code = Negative Negative 9276974178) JAMES (test code = JAMES) Urine Drug Cutoff Ranges Amphetamine: ? 1,000 ng/mLCocaine: ? 150 ng/mLOpiates: ? 300 ng/mLCannabinoids: ?50 ng/mL The results are to be used only for medical (i.e., treatment) purposes. Unconfirmed screening results must not be used for non-medical purposes (e.g., employment testing, legal testing). Lab Interpretation (test Abnormal code = 60747-4) [facility] ONLY - SYPHILIS [id number] 15:04:00 Test Item Value Reference Range Interpretation Comments Syphilis IgG/IgM (test Non-reactive Non-reactive code = 35221-5) JAMES (test code = JAMES) Non-reactive - No serologic evidence of T. pallidum infection. Cannot exclude incubating or early syphilis. Submit a second specimen in 2-4 weeks if syphilis is clinically suspected. Equivocal - Further testing to follow. Reactive - Further testing to follow. Lab Interpretation (test Normal code = 06490-9) [facility] CenterUrinalysis2020-11-09 14:52:00 Test Item Value Reference Range Interpretation Comments APPEARANCE (test code = Clear Clear 6686248693) COLOR (test code = Yellow Yellow 8356857714) PH (test code = 4.8-8.0 2976270095) SP GRAVITY (test code = 1.003-1.030 0507252085) GLU U QUAL (test code = 500 mg/dL Normal A 3589733219) BLOOD (test code = Negative Negative 7418317425) KETONES (test code = 20 mg/dL Negative A 7960663968) PROTEIN (test code = Negative Negative 2887-8) UROBILIN (test code = Normal Normal 9281762076) BILIRUBIN (test code = Negative Negative 1492230034) NITRITE (test code = Negative Negative 2645474341) LEUK RYAN (test code = Negative Negative 2486111154) RBC/HPF (test code = <1 See_Comment [Autom ated message] 2980942176) The system [employer] generated this result transmit ronan reference range : 0 - 3 HPF. The refe rence range was not u sed to interpret th is result as normal/abnormal . WBC/HPF (test code = See_Comment [Autom ated message] 8923177013) The system [employer] generated this result transmit ronan reference range : 0 - 5 HPF. The refe rence range was not u sed to interpret th is result as normal/abnormal . BACTERIA (test code = Negative Negative 0503516777) MUCOUS (test code = Slight Negative LPF A 3655591488) Lab Interpretation (test Abnormal code = 00527-5) [facility] CenterACTIVATED PARTIAL THRMPLAS [id number] 13:45:00 Test Item Value Reference Range Interpretation Comments APTT Patient (test code = See_Comment [ Automated message] 3173-2) The system whic h generated this result transmitted ref erence range: 26 - 36 Seconds. The re ference range was not u sed to interpret this result as normal/abnor mal. Lab Interpretation (test Normal code = 37753-8) [facility] CenterPO[facility] ([facility])2020-08-21 13:45:00 Test Item Value Reference Range Interpretation Comments POCT GLU (test code = 0192172436) 246 mg/dL 70-110 H Lab Interpretation (test code = Abnormal 62435-2) [facility] CenterHIV 1/2 AG-AB WITH [id number] 12:32:00 Test Item Value Reference Range Interpretation Comments HIV Negative Negative Semi-quantitative (test code = 66363-6) JAMES (test code = Non-reactive for HIV-1 JAMES) antigen and HIV-1/HIV-2 antibodies. ?No laboratory evidence of HIV infection. ?Repeat in 2-4 weeks if acute HIV infection is suspected. [facility] CenterCBC WITH [id number] 12:18:00 Test Item Value Reference Range Interpretation Comments WBC (test code = See_Comment [Automated 2490-2) message] The sy stem which generated this result transmitted reference range : 4.20 - 10.70 10*3/?L. The reference range was not used to interpret this result as normal/abnormal . RBC (test code = See_Comment [Automated 559-8) message] The sy stem which [...] RDW-SD (test code = 44.4 fL 38.5-51.6 25519-2) RDW-CV (test code = 14.5 % 12.1-15.4 788-0) PLT (test code = See_Comment H [Automated 777-3) message] The sy stem which generated this result transmitted reference range : 150 - 328 10*3/ ?L. The reference r torito was not used to interpret this result as normal/abnormal . MPV (test code = 8.5 fL 9.8-13 L 00576-2) NRBC/100 WBC (test See_Comment [Automat ed code = 7373332380) message] The system which generated this result transmitted reference range : 0.0 - 10.0 /100 WBCs. The refer ence range was not u sed to interpret th is result as normal/abnormal . NRBC x10^3 (test code <0.01 See_Comment [Auto mated = 5367081811) message] The s ystem which generated this result transmitted reference range : 10*3/?L. The reference range was not used to interpret this result as normal/abnormal . GRAN MAT (NEUT) % 90.4 % (test code = 770-8) IMM GRAN % (test code 1.30 % = 6675887926) LYMPH % (test code = 7.1 % 736-9) MONO % (test code = 0.5 % 5905-5) EOS % (test code = 0.1 % 713-8) BASO % (test code = 0.6 % 706-2) GRAN MAT x10^3(ANC) 7.74 10*3/uL 1.99-6.95 H (test code = 0292233631) IMM GRAN x10^3 (test 0.11 10*3/uL 0-0.06 H code = 1664006464) LYMPH x10^3 (test code 0.61 10*3/uL 1.09-3.23 L = 731-0) MONO x10^3 (test code 0.04 10*3/uL 0.36-1.02 L = 742-7) EOS x10^3 (test code = <0.03 0.06-0.53 L 711-2) BASO x10^3 (test code 0.05 10*3/uL 0.01-0.09 = 704-7) POLYCHROMASIA (test 2+ See_Comment [Automa ronan code = 34457-4) message] The system which generated this result transmitted reference range : 2+. The referen ce range was not u sed to interpret th is result as normal/abnormal . BANDS (test code = Increased A 9262060351) Lab Interpretation Abnormal (test code = 24095-1) [facility] 11:48[facility]00 Test Item Value Reference Range Interpretation Comments Procalcitonin (test 0.36 ng/mL <0.07 H code = 0136871251) JAMES (test code = JAMES) INTERPRETATION OF [...] biotics/default.asp Lab Interpretation Abnormal (test code = 64074-2) [facility] CenterLACOATE [id number] 10:53:00 Test Item Value Reference Range Interpretation Comments LDH (test code = 0822658314) 351 U/L 300-600 Lab Interpretation (test code = Normal 63435-4) [facility] CenterSEDIMENTATION [id number] 10:07:00 Test Item Value Reference Range Interpretation Comments ESR (test code = See_Comment H [Automated message] 7255229281) The system [employer] generated this result transmitted ref erence range: 0 - 10 m m/HR. The reference r torito was not used to interpret this result as normal/abnor mal. Lab Interpretation (test Abnormal code = 59180-0) [facility]PO[facility] (AUT[facility]ATED)2020-08-21 09:45:00 Test Item Value Reference Range Interpretation Comments POCT GLU (test code = 4477492818) 287 mg/dL 70-110 H Lab Interpretation (test code = Abnormal 70710-7) [facility] CenterGlycosylated Hemoglobin (A1C)2020-08-21 09:29:00 Test Item Value Reference Range Interpretation Comments HGB A1C (test code = 4548-4) 9.8 % 4-6 H Lab Interpretation (test code = Abnormal 01409-7) [facility] CenterCOVID-19 (ID NOW RAPID TESTING)2020-08-21 09:13:00 Test Item Value Reference Range Interpretation Comments SARS-CoV-2 Rapid ID NOW Not Detected Not Detected (test code = 55377-3) JAMES (test code = JAMES) ID NOW COVID-19 Assay is an isothermal nucleic acid amplification test intended for the qualitative detection of nucleic acid from SARS-CoV-2 viral RNA in nasopharyngeal ([employer]) specimens. It is used under Emergency [...] indicated. Lab Interpretation Normal (test code = 81574-9) [facility] CenterProthrombin Time / [id number] 08:59:00 Test Item Value Reference Range Interpretation Comments PROTIME PATIENT (test See_Comment H [Auto mated message] code = 5964-2) The system [employer] generated this result transmitted ref erence range: 10.1 - 1 2.6 Seconds. The reference range was not used to int erpret this result as normal/abnormal . INR (test code = 6301-6) Nor mal INR <1.1; Warfarin Therap eutic range 2.0 to 3. 0 or 2.5 to 3.5, dep ending upon the indica tions. Lab Interpretation (test Abnormal code = 46839-5) [facility] CenteraPTT2020-11-09 08:59:00 Test Item Value Reference Range Interpretation Comments APTT Patient (test code = See_Comment [ Automated message] 3173-2) The system [employer] generated this result transmitted ref erence range: 26 - 36 Seconds. The re ference range was not u sed to interpret this result as normal/abnor mal. Lab Interpretation (test Normal code = 72490-1) [facility] (NA, K, CL, CO2, GLUCOSE, BUN, CREATININE, CA)2020-08-21 08:52:00 Test Item Value Reference Range Interpretation Comments NA (test code = 136 mmol/L 135-145 2124541584) K (test code = 4.3 mmol/L 3.5-5 1256476691) CL (test code = 104 mmol/L 98-108 7055382900) CO2 TOTAL (test code = 24 mmol/L 23-31 9729673656) AGAP (test code = 2-16 4371843998) BUN (test code = 8 mg/dL 7-23 1501549861) GLUCOSE (test code = 308 mg/dL 70-110 H 2096612031) CREATININE (test code = 0.72 mg/dL 0.6-1.25 2703202248) CALCIUM (test code = 7.8 mg/dL 8.6-10.6 L 6992430190) eGFR Calculation mL/min/1.73m2 (Non-) (test code = 7885135760) eGFR Calculation mL/min/1.73m2 () (test code = 8568676828) JAMES (test code = JAMES) Association of [...] tests). Lab Interpretation Abnormal (test code = 29364-9) [facility] CenterHEPATIC FUNCTION PANEL (95054) (ALB,T.PRO,BILI T,BU/BC,ALT,AST,ALK PHOS)2020-08-21 08:52:00 Test Item Value Reference Range Interpretation Comments TOTAL BILI (test code = 3310623844) 0.8 mg/dL 0.1-1.1 BILI UNCON (test code = 1710387626) 0.3 mg/dL 0.1-1.1 BILI CONJ (test code = 0052991313) 0.0 mg/dL 0-0.3 T PROTEIN (test code = 0518832862) 5.7 g/dL 6.3-8.2 L ALBUMIN (test code = 3113502456) 2.7 g/dL 3.5-5 L ALK PHOS (test code = 5997898079) 245 U/L 34-122 H ALTv (test code = 1742-6) 37 U/L 5-50 AST(SGOT) (test code = 5747287595) 43 U/L 13-40 H Lab Interpretation (test code = Abnormal 88211-2) [facility]
[2023-05-18] MEDS ORDERED: HYDROMORPHONE HCL 2 MG/ML inj ONE (23:10)
[2023-05-18] MEDS ORDERED: KETOROLAC 30 MG/ML INJ ONE (23:11)
[2023-05-18] MEDS ORDERED: ONDANSETRON 4 MG/2 ML VIAL ONE (23:11)
--- NOTE | 2023-05-19 01:09 | ER ---
Nurse's Notes [facility] Name: Kiel Ngo Age: 72 yrs Sex: Male : 1950 Arrival Date: 05/18/2023 Time: 22:39 Bed 4 Private MD: Diagnosis: Chronic pain syndrome;Acute exacerbation of right lower extremity chronic pain. Presentation: 05/18 23:14 Chief complaint: EMS states: Pt returning to the ER for chronic pain management. kd3 Coronavirus screen: Vaccine status: Patient reports being unvaccinated. Ebola Screen: No symptoms or risks identified at this time. Initial Sepsis Screen: Does the patient meet any 2 criteria? No. Patient's initial sepsis screen is negative. Does the patient have a suspected source of infection? No. Patient's initial sepsis screen is negative. Risk Assessment: Do you want to hurt yourself or someone else? Patient reports no desire to harm self or others. Onset of symptoms was May 18, 2023. 23:14 Method Of Arrival: EMS: [facility] kd3 23:14 Acuity: JOZEF 3 kd3 Triage Assessment: 23:15 General: Appears in no apparent distress. Behavior is calm, cooperative. Pain: kd3 Complains of pain in back. Neuro: Level of Consciousness is awake, alert, obeys commands, Oriented to person, place, time, situation. Historical: - Allergies: 23:15 Demerol; kd3 23:15 metformin; kd3 23:15 Morphine; kd3 - PMHx: 23:15 Atrial fibrillation; chronic back pain; Chronic right leg pain; neuropathy; kd3 - PSHx: 23:15 back sx; PANCREAS SX; R. Ankle SX; kd3 - Immunization history:: Adult Immunizations up to date. - Social history:: Smoking status: Patient denies any tobacco usage or history of. - Family history:: not pertinent. Screenin/07 01:50 [facility] ED Fall Risk Assessment (Adult) History of falling in the last 3 months, kd3 including since admission No falls in past 3 months (0 pts) Confusion or Disorientation No (0 pts) Intoxicated or Sedated No (0 pts) Impaired Gait No (0 pts) Mobility Assist Device Used No (0 pt) Altered Elimination No (0 pt) Score/Fall Risk Level 0 - 2 = Low Risk Maintained a safe environment. Abuse screen: Denies threats or abuse. Denies injuries from another. Nutritional screening: No deficits noted. Tuberculosis screening: No symptoms or risk factors identified. Assessment: 00:15 General: Appears in no apparent distress. Behavior is calm, cooperative. Neuro: Level kd3 of Consciousness is awake, alert, obeys commands, Oriented to person, place, time, situation. Cardiovascular: Patient's skin is warm and dry. Respiratory: Airway is patent Trachea midline Respiratory effort is even, unlabored, Respiratory pattern is regular, symmetrical. Vital Signs: 05/18 23:14 BP 147 / 79; Pulse 86; Resp 16; Pulse Ox 100% ; Weight 71.21 kg; kd3 23:17 Temp 98.2(O); kd3 05/19 00:15 BP 130 / 59; Pulse 81; Resp 18; Pulse Ox 100% on R/A; kd3 01:49 BP 132 / 64; Pulse 79; Resp 18; Pulse Ox 99% on R/A; kd3 ED Course: 05/18 22:41 Patient arrived in ED. rv1 22:49 Benoit Weeks MD is Attending Physician. sp4 22:56 Karen Ambrocio RN is Primary Nurse. kd3 23:15 Triage completed. kd3 23:16 Arm band placed on right wrist. kd3 05/19 01:50 No provider procedures requiring assistance completed. Patient did not have IV access kd3 during this emergency room visit. 01:51 Patient has correct armband on for positive identification. Provided Education on: . kd3 Administered Medications: 05/18 23:17 Drug: HYDROmorphone IM 2 mg Route: IM; Site: right deltoid; kd3 05/19 01:49 Follow up: Response: No adverse reaction; Pain is decreased kd3 05/18 23:17 Drug: Zofran IM 4 mg Route: IM; Site: left deltoid; kd3 05/19 01:49 Follow up: Response: No adverse reaction; Nausea is decreased kd3 05/18 23:17 Drug: Ketorolac IM 60 mg Route: IM; Site: right deltoid; kd3 05/19 01:49 Follow up: Response: No adverse reaction; Pain is decreased kd3 Medication: 01:51 VIS not applicable for this client. kd3 Outcome: 01:08 Discharge ordered by MD. sp4 01:50 Discharged to home via ambulance. kd3 01:50 Condition: stable 01:50 Discharge instructions given to patient, Instructed on discharge instructions, follow up and referral plans. Demonstrated understanding of instructions, follow-up care. 01:51 Patient left the ED. kd3 Signatures: Karen Ambrocio RN RN kd3 Linda Wilde rv1 Benoit Weeks MD MD sp4
--- NOTE | 2023-05-19 01:09 | EDPHYS ---
Physician Documentation [facility] Name: Kiel Ngo Age: 72 yrs Sex: Male : 1950 Arrival Date: 05/18/2023 Time: 22:39 Bed 4 Private MD: ED Physician Benoit Weeks HPI: 05/19 00:58 This 72 yrs old Male presents to ER via EMS with complaints of Generalized sp4 pain that is chronic. 01:03 72-year-old male with history of atrial fibrillation, chronic back pain, chronic right sp4 leg pain, deconditioning immobility, neuropathy presents with EMS for acute worsening of his chronic right leg pain . Patient does Lyle here periodically for worsening of his right leg pain. Patient states that he cannot visit his pain management physician secondary to immobility and difficulty getting a ride. patient resides at home with his who takes care of him . Historical: - Allergies: 05/18 23:15 Demerol; kd3 23:15 metformin; kd3 23:15 Morphine; kd3 - PMHx: 23:15 Atrial fibrillation; chronic back pain; Chronic right leg pain; neuropathy; kd3 - PSHx: 23:15 back sx; PANCREAS SX; R. Ankle SX; kd3 - Immunization history:: Adult Immunizations up to date. - Social history:: Smoking status: Patient denies any tobacco usage or history of. - Family history:: not pertinent. ROS: 05/19 01:03 Constitutional: Negative for fever, chills, and weight loss, Eyes: Negative for injury, sp4 pain, redness, and discharge, MS/Extremity: Negative for injury and deformity, positive for chronic immobility, positive for bedbound status, positive for right leg pain that is chronic worsening today All other systems are negative. Exam: 01:03 Constitutional: This is a well developed, well nourished patient who is awake, alert, sp4 positive for diffuse muscular atrophy, positive signs of prolonged immobility, nonambulatory status, ill-appearing but nontoxic. There is also incontinence of bowel and bladder Head/Face: Normocephalic, atraumatic. Eyes: Pupils equal round and reactive to light, extra-ocular motions intact. Lids and lashes normal. Conjunctiva and sclera are not injected. Cornea within normal limits. Periorbital areas with no swelling, redness, or edema. ENT: Nares patent. No nasal discharge, no septal abnormalities noted. Tympanic membranes are normal and external auditory canals are clear. Oropharynx with no redness, swelling, or masses, exudates, or evidence of obstruction, uvula midline. Mucous membranes moist. Neck: Trachea midline, no thyromegaly or masses palpated, and no cervical lymphadenopathy. Supple, full range of motion without nuchal rigidity, or vertebral point tenderness. Chest/axilla: Normal chest wall appearance and motion. Nontender with no deformity. No lesions are appreciated. Cardiovascular: Regular rate and rhythm with a normal S1 and S2. No gallops, murmurs, or rubs. Normal PMI, no JVD. No pulse deficits. Respiratory: Lungs have equal breath sounds bilaterally, clear to auscultation and percussion. No rales, rhonchi or wheezes noted. No increased work of breathing, no retractions or nasal flaring. Abdomen/GI: Soft, non-tender, with normal bowel sounds. No distension or tympany. No guarding or rebound. No evidence of tenderness throughout. Extensive abdominal scarring from prior pancreatic surgery Back: No spinal tenderness. No costovertebral tenderness. Skin: Warm, dry with normal turgor. Normal color with no rashes, no lesions, and no evidence of cellulitis. MS/ Extremity: Pulses equal, no cyanosis. Bilateral lower extremity muscular atrophy secondary to prolonged immobility. Bilateral lower extremity contractures from immobility Neuro: Awake and alert, GCS 15, oriented to person, place, time, and situation. Cranial nerves II-XII grossly intact. No new neurologic deficit reported Psych: Awake, alert, with orientation to person, place and time. Behavior, mood, and affect are within normal limits Vital Signs: 05/18 23:14 BP 147 / 79; Pulse 86; Resp 16; Pulse Ox 100% ; Weight 71.21 kg; kd3 23:17 Temp 98.2(O); kd3 05/19 00:15 BP 130 / 59; Pulse 81; Resp 18; Pulse Ox 100% on R/A; kd3 01:49 BP 132 / 64; Pulse 79; Resp 18; Pulse Ox 99% on R/A; kd3 MDM: 05/18 22:51 Patient medically screened. sp4 05/19 01:03 Differential Diagnosis altered mental status, Chronic pain, exacerbation of chronic sp4 pain, prolonged immobility, poor mobility status. Data reviewed: vital signs, nurses notes, EMS record, old medical records. ED course: Patient feels much improved after pain medications. Patient is ready for discharge home. Patient was advised to consider entering to the jail where he can get his scheduled medications on time. patient states he takes p.o. Dilaudid at home. This we cannot provide. ED course: Patient will be prescribed some as needed tramadol short course.. Administered Medications: 05/18 23:17 Drug: HYDROmorphone IM 2 mg Route: IM; Site: right deltoid; kd3 05/19 01:49 Follow up: Response: No adverse reaction; Pain is decreased kd3 05/18 23:17 Drug: Zofran IM 4 mg Route: IM; Site: left deltoid; kd3 05/19 01:49 Follow up: Response: No adverse reaction; Nausea is decreased kd3 05/18 23:17 Drug: Ketorolac IM 60 mg Route: IM; Site: right deltoid; kd3 05/19 01:49 Follow up: Response: No adverse reaction; Pain is decreased kd3 Disposition Summary: 05/19/23 01:08 Discharge Ordered Location: Home sp4 Problem: new sp4 Symptoms: have improved sp4 Condition: Stable sp4 Diagnosis - Chronic pain syndrome sp4 - Acute exacerbation of right lower extremity chronic pain. sp4 Followup: sp4 - With: Private Physician - When: 7 - 10 days - Reason: Recheck today's complaints Discharge Instructions: - Discharge Summary Sheet sp4 - Chronic Pain, Adult sp4 Forms: - Patient Portal Instructions sp4 Prescriptions: - Tramadol 50 mg Oral Tablet - take 1 tablet by ORAL route every 8 hours as needed; 20 tablet; Refills: 0, sp4 Product Selection Permitted Signatures: Karen Ambrocio RN RN kd3 Benoit Weeks MD MD sp4
[2023-05-19 01:55] VITALS: TEMP 98.2
[2023-05-19 01:58] VITALS: BP 132/64; O2SAT 99
== END 2023-05-19 01:51 | disposition home or self-care (01) ==
LOC: ER 22:39
DX: G89.4 Chronic pain syndrome (principal); I48.91 Unspecified atrial fibrillation; Z88.5 Allergy status to narcotic agent; Z88.8 Allergy status to other drugs, medicaments and biological substances
CPT/HCPCS: 96372; 99284; J1170; J2405

== ENCOUNTER 2023-05-24 02:59 | Emergency (ER) | payer OTHER ==
--- OUTSIDE RECORDS SUMMARY | 2023-05-24 03:10 | XMS REPORT | Continuity of Care Document ---
:[address] [facility] t Address [address] [place] [address] Care Team Providers Name Role Phone CALVIN WORLEY Primary Care Physician Unavailable [id number] Attending Clinician Unavailable KELLY WASHINGTON Attending Clinician Unavailable Zion Mathew Anavella Attending Clinician Unava ilable SWEETIE STOUT Attending Clinician Unavailable Girish VILLAREAL, Sweetie Attending Clinician Calvin Worley MD Attending Clinician Ruchi Peters RN Attending Clinician Paco Lacey DO Attending Clinician Hunter VILLAREAL, Vika Fernando Attending Clinician Alvarez Rowe MD Attending Clinician ALVAREZ ROWE Attending Clinician Unavailable PACO LACEY Attending Clinician Unavailable Doctor Unassigned, [place] Attending Clinician Unavailable Wilder VILLAREAL, Angi K.H. Attending Clinician Jl Mccabe MD Attending Clinician Kelly Washington MD Attending Clinician [phone] Lisandra Gallardo MD, Mukul Anand Attending Clinician [id number] Admitting Clinician Unavailable MUKUL GALLARDO Admitting Clinician Unavailable Angle Mathew, Anav Admitting Clinician Unavailable Hunter VILLAREAL, Vika Fernando Admitting Clinician VIKA HARRISON Admitting Clinician Unavailable Nicci VILLAREAL, Mukul Anand Admitting Clinician Payers Payer Name Policy Type Policy Number Effective Date Expiration Date Tony doe MEDICARE PART A [id number] 2007 \\T\\ B 00:00:00 [employer] INDEMNITY [id number] 2016 00:00:00 MCR MCR [id number] Problems Condition Condition Condition Status Onset Resolution [...] ents Source Name Type Date Date Clinician [place] [employer] Active Rash 2019- Univers ty to [...] Exposure to Not sure University of SARS-CoV-2 [place] [facility] (event) Branch History [...] 00:00:00 00:00:00 [place] [facility] al Branch History SDLA 2020-11-17 2020-11-17 1 University o f Transport Non-Med 00:00:00 00:00:00 [facility] [facility] edical Branch Education 2020-11-16 2020-11-16 21 [place] of 00:00:00 00:00:00 [facility] Branch Alcohol intake 2020-11-16 2020-11-16 Ex-drinker [place] of 00:00:00 00:00:00 (finding) [facility] Tobacco use and 2020-08-21 2020-08-21 Former user Universi ty of exposure 00:00:00 00:00:00 [facility] Tobacco Comment 2020-08-21 2020-08-21 quit 10 years Univer sity of 00:00:00 00:00:00 ago, started in [place] Med ical 2nd year of Branch college (~40 years) Alcohol Comment 2020-08-21 2020-08-21 Used to have 2-3 Uni versity of 00:00:00 00:00:00 six-packs of [place] Medica l beer daily x 20 Branch years, quit 2004 History [facility] 2020-08-21 2020-08-21 99 University o f Alcohol Frequency 00:00:00 00:00:00 [place] M edical Branch History SDLA 2020-08-21 2020-08-21 99 University o f Alcohol Std 00:00:00 00:00:00 [place] Medical Drinks Branch History SDLA 2020-08-21 2020-08-21 99 University o f Alcohol Binge 00:00:00 00:00:00 [facility] [place] Sex Ass[birth year] Universit y of 00:00:00 00:00:00 [facility] Smoking Status Start Date Stop Date Source Never smoker [facility] Medications Ordered Filled Start [...] at [place] 18 bedtime. Medical Branch HYDROmorpho Yes 4mg [...] at [place] 18 bedtime. Medical Branch HYDROmorpho Yes 4mg [...] 0845, Until Discontinu ed, Routine amLODIPine Yes [id number] 10mg Take 1 Univers 10 mg 3-07 tablet by ity of tablet 00:00: mouth [place] 00 daily. Medical Branch clotrimazol Yes [id number] Apply to Univers e 1 % 3-07 face/ears, ity of topical 00:00: armpits, [place] cream 00 pannus and Medical back/any Branch other rash twice a day fluocinonid 0 Yes [id number] Apply to Univers e 0.05 % 3-07 scalp ity of solution 00:00: twice a 00 day Medical Branch triamcinolo 0 Yes [id number] Apply to Univers ne 3-07 back, ity of acetonide 00:00: armpits [place] 0.1 % cream 00 and other Med ical affected Branch areas twice daily, please mix with clotrimazo le hydrOXYzine Yes [id number] 10mg Take 1 Univers 10 mg 3-07 tablet by ity of tablet 00:00: mouth 2 (two) Medical times Branch daily. amLODIPine Yes [id number] 10mg Take 1 Univers 10 mg 3-07 tablet by ity of tablet 00:00: mouth [place] 00 daily. Medical Branch clotrimazol Yes [id number] Apply to Univers e 1 % 3-07 face/ears, ity of topical 00:00: armpits, [place] cream 00 pannus and Medical back/any Branch other rash twice a day fluocinonid 0 Yes [id number] Apply to Univers e 0.05 % 3-07 scalp ity of solution 00:00: twice a day Medical Branch triamcinolo Yes [id number] Apply to Univers ne 3-07 back, ity of acetonide 00:00: armpits [place] 0.1 % cream 00 and other Med ical affected Branch areas twice daily, please mix with clotrimazo le hydrOXYzine Yes [id number] 10mg Take 1 Univers 10 mg 3-07 tablet by ity of tablet 00:00: mouth 2 00 (two) Medical times Branch daily. amLODIPine 2020-0 Yes [id number] 10mg Take 1 Univers 10 mg 3-07 tablet by ity of tablet 00:00: mouth [place] 00 daily. Medical Branch clotrimazol 2020-0 Yes [id number] Apply to Univers e 1 % 3-07 face/ears, ity of topical 00:00: armpits, [place] cream 00 pannus and Medical back/any Branch other rash twice a day fluocinonid 2020-0 Yes [id number] Apply to Univers e 0.05 % 3-07 scalp ity of solution 00:00: twice a day Medical Branch triamcinolo 2020-0 Yes [id number] Apply to Univers ne 3-07 back, ity of acetonide 00:00: armpits [place] 0.1 % cream 00 and other Med ical affected Branch areas twice daily, please mix with clotrimazo le hydrOXYzine Yes [id number] 10mg Take 1 Univers 10 mg 3-07 tablet by ity of tablet 00:00: mouth 2 [place] 00 (two) Medical times Branch daily. amLODIPine Yes [id number] 10mg Take 1 Univers 10 mg 3-07 tablet by ity of tablet 00:00: mouth [place] 00 daily. Medical Branch clotrimazol Yes [id number] Apply to Univers e 1 % 3-07 face/ears, ity of topical 00:00: armpits, [place] cream 00 pannus and Medical back/any Branch other rash twice a day fluocinonid 2020- Yes [id number] Apply to Univers e 0.05 % 3-07 scalp ity of solution 00:00: twice a Medical Branch triamcinolo 0 Yes [id number] Apply to Univers ne 3-07 back, ity of acetonide 00:00: armpits [place] 0.1 % cream 00 and other Med ical affected Branch areas twice daily, please mix with clotrimazo le hydrOXYzine Yes [id number] 10mg Take 1 Univers 10 mg -07 tablet by ity of tablet 00:00: mouth 2 [place] (two) Medical times Branch daily. cephALEXin 2020-2020- No [id number] 500mg Take 1 Univers 500 mg -04 14- capsule by ity of capsule 00:00: 05:59 mouth [place] 00 :00 every 6 Medical (six) Branch hours for 3 days. cephALEXin 2020-0 2020- No [id number] 500mg Take 1 Univers 500 mg 3-04 14- capsule by ity of capsule 00:00: 05:59 mouth [place] 00 :00 every 6 Medical (six) Branch hours for 3 days. hydrOXYzine 2020-0 2020- No [id number] 10mg Take 1 Univers 10 mg 3-04 14-07 tablet by ity of tablet 00:00: 00:00 mouth 2 [place] 00 :00 (two) Medical times [place] daily. morpHINE Yes 4mg 4 mg, Slow [...] ity of mg 11:15: 10:58 ONCE, 1 [place] 00 :00 dose, Sat [facility] 12/16/20 at Branch 0515, Routine lactated 2020- No 1000mL at 125 Univ ers ringers IV 12-16 03-06 mL/hr, ity of infusion 01:00: 00:16 1,000 mL, [place] 1,000 mL 00 :00 IV Medical Infusion, [place] ONCE, 1 dose, 12/15/20 at 1900, Routine iohexol 2020- No 100mL 100 mL, Unive rs (OMNIPAQUE 12-15-05 Intravenou it y of 350 22:24: 22:24 s, ONCE, 1 [place] BULK-100 00 :00 dose, Fri Medica l mL) 12/15/20 at [place] injection 1645, 100 mL Routine cephALEXin 2020- [...] NaCl 0.9% 2020- No 500mL at 999 [facility] ers (NS) bolus 12-15-05 mL/hr, 500 it y of infusion 16:00: 15:26 mL, IV [place] 500 mL 00 :00 Piggyback, Medical ONCE, 1 Branch dose, Fri12/15/20 at 1000, STAT HYDROmorpho Yes 4mg 4 mg, [facility] Oral, BID, ity of (DILAUDID) 15:30: First dose [place] tablet 4 mg 00 (after Medica l last Branch modificati on) on Fri12/15/20 at 0930, Until Discontinu ed, Routine amLODIPine 2020- No [id number] 10mg Take 1 Univers 10 mg 12-15-07 tablet by ity of tablet 00:00: 00:00 mouth [place] 00 :00 daily. Medical Branch HYDROmorpho 2020- No 1mg 1 mg, [facility] ers ne 12-14 03-05 Oral, ity of (DILAUDID) 17:35: 15:18 Q6HPRN, [place] tablet 1 mg 30 :06 Starting Medi [facility] 12/14/20 Branch at 1135, Until Fri12/15/20 at 0918, Routine, Pain (scale 7-10) hydrOXYzine Yes 10mg 10 mg, [facility] ers (ATARAX) 3-04 Oral, BID, ity o f tablet 10 17:30: First dose [place] mg 00 on [facility] 12/14/20 at Branch 1130, Until Discontinu ed, Routine lisinopriL Yes 5mg 5 mg, Univer s (PRINIVIL,Z 3-04 Oral, ity of ESTRIL) 17:30: DAILY, [place] tablet 5 mg 00 First dose Me dical on [facility] Branch 3/4/21 at 1130, Until Discontinu ed, Routine triamcinolo 2020- No [id number] Apply to Univers ne 12-14 back, ity of acetonide 00:00: 00:00 armpits [place] 0.1 % cream 00 :00 and other Med ical affected Branch areas twice daily, please mix with clotrimazo le clotrimazol 2020- No [id number] Apply to Univers e 1 % 12-14 face/ears, ity of topical 00:00: 00:00 armpits, [place] cream 00 :00 pannus and Medical back/any Branch other rash twice a day fluocinonid 2020- No [id number] Apply to Univers e 0.05 % 12-14 scalp ity of solution 00:00: 00:00 twice a [place] 00 :00 day Medical Branch hydrOXYzine 2020- No [id number] 10mg Take 1 Univers 10 mg 12-14 [...] IV Push, ity of (PF)) 10:07: Q6HPRN, [place] injection 4 28 Starting Medi jose c mg Fri12/13/20 Branch at 0407, Until Discontinu ed, Routine, Nausea and Vomiting (N/V) ondansetron 2020- No 4mg 4 mg, Slow Univers (ZOFRAN 3-03 IV Push, ity of (PF)) 04:55: 05:44 ONCE, 1 [place] injection 4 00 :00 dose, [facility] ical mg 12/12/20 at Branch 2300, Routine traMADoL 2020- No 50mg 50 mg, Univer s (ULTRAM) 12-13 03-03 Oral, ity of tablet 50 03:45: 03:34 ONCE, 1 [place] mg 00 :00 dose, [facility] 12/12/20 at Branch 2145, Routine insulin Yes 15U 15 Units, [facility] rs glargine 12-12 Subcutaneo ity o f (LANTUS 15:00: us, DAILY, [place] U-100) 00 First dose Medical injection on [facility] 15 Units 12/12/20 at 0900, Until Discontinu ed hydrOXYzine 2020- No 10mg 10 mg, Uni vers (ATARAX) 12-12 03-02 Oral, ity of tablet 10 08:15: 07:33 ONCE, 1 [place] mg 00 :00 dose, [facility] 12/12/20 at Branch 0215, Routine mirtazapine Yes 7.5mg 7.5 mg, Un toi (REMERON) 3-02 Oral, QHS, ity of tablet 7.5 03:00: First dose [place] mg 00 [facility] 12/11/20 at Branch 2100, Until Discontinu ed, [...] of Therapy: 7 days Sliding Yes Subcutaneo [facility] ers Scale 12-11 us, TID ity of Insulin - 18:00: MEALS+HS, [place] Lispro 00 First dose Medical (HumaLOG) + on Fri Branch Fsbg 12/11/20 at Testing 1200, Until Discontinu ed, Routine insulin Yes 5U 5 Units, [facility] lispro 12-11 Subcutaneo ity of (human) 18:00: us, TID [place] (HumaLOG 00 MEALS, Medical U-100) First dose Branch injection 5 on Mon Units 12/11/20 at 1200, Until Discontinu ed Polyethylen Yes 17g 17 g, [place] [facility] rs e Glycol 12-11 Oral, ity of 3350 17:47: [id number], [place] (MIRALAX) 05 Starting Medica l powder [...] No 3.375g 3.375 g, [facility] n-tazobacta 12-11 IV ity of m (ZOSYN) 12:00: 17:48 Piggyback, [place] injection 00 :24 Q6H, First Medi jose c 3.375 g dose on Branch Fri12/11/20 at 0600, Until Discontinu ed, KAHLIL
Re ason for Anti-Infec tive: Empiric Therapy for Suspected Infection< br>Empiric Therapy Site: Skin / Soft tissue
Duration of therapy: 72 hours sennosides- Yes [id number] 1{tbl} Take 1 [facility] docusate 2-09 tablet by ity of sodium 00:00: mouth 2 [place] 8.6-50 mg 00 (two) Medical per tablet times Branch daily. hydrocortis Yes [id number] Apply to [facility] one 2.5 % 11-21 affected ity of cream 00:00: area(s) 2 [place] 00 (two) Medical times Branch daily. blood sugar Yes [id number] Use to [facility] diagnostic 2- check ity of (FREESTYLE 00:00: blood [place] LITE 00 glucose Medical STRIPS) 4-5 times Branch strip daily. Polyethylen 2020- Yes [id number] 17g Take 1 Univers e Glycol 2-09 Packet by ity of 3350 17 00:00: mouth [place] gram powder 00 every 24 Medi jose c (twenty-fo Branch ur) hours as needed for Constipati on. sennosides- Yes [id number] 1{tbl} Take 1 Univers docusate 2-09 tablet by ity of sodium 00:00: mouth 2 [place] 8.6-50 mg 00 (two) Medical per tablet times Branch daily. hydrocortis 2020- Yes [id number] Apply to Univers one 2.5 % 2-09 affected ity of cream 00:00: area(s) 2 [place] 00 (two) Medical times Branch daily. blood sugar Yes [id number] Use to Univers diagnostic 2-09 check ity of (FREESTYLE 00:00: blood [place] LITE 00 glucose Medical STRIPS) 4-5 times Branch strip daily. Polyethylen Yes [id number] 17g Take 1 Univers e Glycol 2-09 Packet by ity of 3350 17 00:00: mouth [place] gram powder 00 every 24 Medi jose c (twenty-fo Branch ur) hours as needed for Constipati on. sennosides- Yes [id number] 1{tbl} Take 1 Univers docusate 2-09 tablet by ity of sodium 00:00: mouth 2 [place] 8.6-50 mg 00 (two) Medical per tablet times Branch daily. hydrocortis 2020- Yes [id number] Apply to Univers one 2.5 % 2-09 affected ity of cream 00:00: area(s) 2 [place] 00 (two) Medical times Branch daily. blood sugar 2020-0 Yes [id number] Use to Univers diagnostic 209 check ity of (FREESTYLE 00:00: blood [place] LITE 00 glucose Medical STRIPS) 4-5 times Branch strip daily. Polyethylen 2020-0 Yes [id number] 17g Take 1 Univers e Glycol 2-09 Packet by ity of 3350 17 00:00: mouth [place] gram powder 00 every 24 Medi jose c (twenty-fo Branch ur) hours as needed for Constipati on. sennosides- 2020- Yes [id number] 1{tbl} Take 1 Univers docusate 2-09 tablet by ity of sodium 00:00: mouth 2 [place] 8.6-50 mg 00 (two) Medical per tablet times Branch daily. hydrocortis Yes [id number] Apply to [facility] one 2.5 % 11-21 affected ity of cream 00:00: area(s) 2 [place] 00 (two) Medical times Branch daily. blood sugar Yes [id number] Use to [facility] diagnostic 11-21 check ity of (FREESTYLE 00:00: blood [place] LITE 00 glucose Medical STRIPS) 4-5 times Branch strip daily. Polyethylen Yes [id number] 17g Take 1 Univers e Glycol 11-21 Packet by ity of 3350 17 00:00: mouth [place] gram powder 00 every 24 Medi ojse c (twenty-fo Branch ur) hours as needed for Constipati on. Insulin 2020- No [id number] 15U inject 15 Univers Glargine 11-21 Units ity of (LANTUS 00:00: 05:59 under the [employer] SOLOSTAR 00 :00 skin every Medic al U-100 morning Branch INSULIN) for 30 100 unit/mL days. (3 mL) injection venlafaxine 2020- No [id number] 150mg Take 1 Univers XR 150 mg 11-21 capsule by ity of 24 hr 00:00: 05:59 mouth 3 [place] capsule 00 :00 (three) Medical times Branch daily for 30 days. Insulin 2020- No [id number] 15U inject 15 Univers Glargine 11-21-12 Units ity of (LANTUS 00:00: 05:59 under the [employer] SOLOST[employer] 00 :00 skin every Medic al U-100 morning Branch INSULIN) for 30 100 unit/mL days. (3 mL) injection venlafaxine 2020- No [id number] 150mg Take 1 Univers XR 150 mg 11-21 capsule by ity of 24 hr 00:00: 05:59 mouth 3 [place] capsule 00 :00 (three) Medical times Branch daily for 30 days. triamcinolo 2020- No [id number] Apply to [facility] ne 11-21-04 area(s) 2 ity of acetonide 00:00: 00:00 (two) [place] 0.1 % cream 00 :00 times Medical daily. Branch cephALEXin 2020- No [id number] 1000mg Take 2 Univers 500 mg 11-21 capsules ity of capsule 00:00: 00:00 by mouth 3 [place] 00 :00 (three) Medical times Branch daily. doxycycline 2020- No [id number] 100mg Take 1 Univers hyclate 100 11-21 capsule by i ty of mg capsule 00:00: 00:00 mouth [place] 00 :00 every 12 Medical (twelve) Branch hours. lactobacill 2020- No [id number] 1{tbl} Take 1 Univers us 11-21 tablet by ity of acidophilus 00:00: 00:00 mouth 2 [place] 25 million 00 :00 (two) Medical cell -100 times Branch mg captab daily. bisacodyL 2020- No [id number] 10mg Insert 1 Univers 10 mg 11-21 Suppositor ity of suppository 00:00: 00:00 y into [place] 00 :00 rectum at Medical bedtime as Branch needed for Constipati on. ALPRAZolam 2020- No [id number] .25mg Take 1 Univers (XANAX) 11-21 tablet by ity of 0.25 mg 00:00: 00:00 mouth 2 [place] tablet 00 :00 (two) Medical times Branch daily. hydrOXYzine 2020- No [id number] 20mg Take 2 Univers 10 mg 11-21 [...] Units ity of (NOVOLOG 01:13: under the [facility] FLEXPEN SC) 36 skin. Medical Branch [...] Units ity of (NOVOLOG 01:13: under the [facility] FLEXPEN SC) 36 skin. Medical Branch [...] Units ity of (NOVOLOG 01:13: under the [facility] s FLEXPEN SC) 36 skin. [...] 34 :00 Medical Branch hydrocortis 2019-10 Yes [id number] Apply to Univers one 2.5 % 1-11 affected ity of cream 00:00: area(s) 2 [place] 00 (two) Medical times Branch daily. hydrOXYzine 2019-10 Yes [id number] 20mg Take 2 Univers 10 mg 1-11 tablets by ity of tablet 00:00: mouth [place] 00 every 8 Medical (eight) Branch hours as needed for Itching or Anxiety. Polyethylen 2019-10 Yes [id number] 17g Take 1 Univers e Glycol 1-11 Packet by ity of 3350 17 00:00: mouth [place] gram powder 00 every 24 Medi jose c (twenty-fo Branch ur) hours as needed for Constipati on. hydrocortis 2019-10 Yes [id number] Apply to Univers one 2.5 % 1-11 affected ity of cream 00:00: area(s) 2 [place] 00 (two) Medical times Branch daily. hydrOXYzine 2019- Yes [id number] 20mg Take 2 Univers 10 mg 1-11 tablets by ity of tablet 00:00: mouth [place] 00 every 8 Medical (eight) Branch hours as needed for Itching or Anxiety. Polyethylen 2019- Yes [id number] 17g Take 1 Univers e Glycol 1-11 Packet by ity of 3350 17 00:00: mouth [place] gram powder 00 every 24 Medi jose c (twenty-fo Branch ur) hours as needed for Constipati on. hydrocortis 2019- Yes [id number] Apply to Univers one 2.5 % 1-11 affected ity of cream 00:00: area(s) 2 [place] (two) Medical times Branch daily. hydrOXYzine 2019- Yes [id number] 20mg Take 2 Univers 10 mg 1-11 tablets by ity of tablet 00:00: mouth [place] 00 every 8 Medical (eight) Branch hours as needed for Itching or Anxiety. Polyethylen 2019- Yes [id number] 17g Take 1 Univers e Glycol 1-11 Packet by ity of 3350 17 00:00: mouth [place] gram powder 00 every 24 Medi jose c (twenty-fo Branch ur) hours as needed for Constipati on. hydrocortis 2019-10 Yes [id number] Apply to Univers one 2.5 % 1-11 affected ity of cream 00:00: area(s) 2 [place] (two) Medical times Branch daily. hydrOXYzine 2019- Yes [id number] 20mg Take 2 Univers 10 mg 1-11 tablets by ity of tablet 00:00: mouth [place] 00 every 8 Medical (eight) Branch hours as needed for Itching or Anxiety. Polyethylen 2019- Yes [id number] 17g Take 1 Univers e Glycol 1-11 Packet by ity of 3350 17 00:00: mouth [place] gram powder 00 every 24 Medi jose c (twenty-fo Branch ur) hours as needed for Constipati on. hydrocortis 2019-10 Yes [id number] Apply to Univers one 2.5 % 1-11 affected ity of cream 00:00: area(s) 2 [place] 00 (two) Medical times Branch daily. hydrOXYzine 2019-10 Yes [id number] 20mg Take 2 Univers 10 mg 1-11 tablets by ity of tablet 00:00: mouth [place] 00 every 8 Medical (eight) Branch hours as needed for Itching or Anxiety. Polyethylen 2020- Yes [id number] 17g Take 1 Univers e Glycol 1-11 Packet by ity of 3350 17 00:00: mouth [place] gram powder 00 every 24 Medi jose c (twenty-fo Branch ur) hours as needed for Constipati on. hydrocortis 2019- Yes [id number] Apply to Univers one 2.5 % 1-11 affected ity of cream 00:00: area(s) 2 [place] 00 (two) Medical times Branch daily. hydrOXYzine 2019- Yes [id number] 20mg Take 2 Univers 10 mg 1-11 tablets by ity of tablet 00:00: mouth [place] 00 every 8 Medical (eight) Branch hours as needed for Itching or Anxiety. Polyethylen 2019- Yes [id number] 17g Take 1 Univers e Glycol 1-11 Packet by ity of 3350 17 00:00: mouth [place] gram powder 00 every 24 Medi jose c (twenty-fo Branch ur) hours as needed for Constipati on. hydrocortis 2019-10 Yes [id number] Apply to Univers one 2.5 % 1-11 affected ity of cream 00:00: area(s) 2 [place] 00 (two) Medical times Branch daily. hydrOXYzine 2019-10 Yes [id number] 20mg Take 2 Univers 10 mg 1-11 tablets by ity of tablet 00:00: mouth [place] 00 every 8 Medical (eight) Branch hours as needed for Itching or Anxiety. Polyethylen 2019- Yes [id number] 17g Take 1 Univers e Glycol 1-11 Packet by ity of 3350 17 00:00: mouth [place] gram powder 00 every 24 Medi jose c (twenty-fo Branch ur) hours as needed for Constipati on. triamcinolo 2019- 2020- No [id number] Apply to [facility] 10-23 area(s) 2 ity of acetonide 00:00: 05:59 (two) [place] 0.1 % cream 00 :00 times Medical daily for Branch 14 days. triamcinolo 2019- 2020- No [id number] Apply to [facility] 10-23 area(s) 2 ity of acetonide 00:00: 05:59 (two) [place] 0.1 % cream 00 :00 times Medical daily for Branch 14 days. triamcinolo 2019- 2020- No [id number] Apply to [facility] ne 10-23 area(s) 2 ity of acetonide 00:00: 05:59 (two) [place] 0.1 % cream 00 :00 times Medical daily for Branch 14 days. KCL 2019- 2020- No 40meq 40 mEq, Univers (KLOR-CON 1-10 11-10 Oral, ONCE ity of M20) tablet 16:15: 16:23 NOW, 1 [place] 40 mEq 00 :00 dose, [facility] 08/22/20 Branch at 1015, Routine HYDROmorpho 2019-10 Yes 1mg 1 mg, Unive rs ne 1-10 Oral, ity of (DILAUDID) 15:07: Q6HPRN, [place] tablet 1 mg 53 Starting [facility] 08/22/20 at 0907, Until Discontinu ed, Routine, Pain (scale 7-10) hydrocortis 2019-10 Yes Topical Uni vers one 2.5 % 1-10 (Apply To ity o f cream 02:00: Affected [place] 00 Areas), Medical BID, First Branch dose on [facility] 08/21/20 at 2000, Until Discontinu ed, Routine triamcinolo 2019-10 Yes Topical, Un toi ne 1-10 BID, First ity of acetonide 02:00: dose on [place] (TRIDERM) [facility] Medical 0.1 % cream 08/21/20 at Br anch 2000, Until Discontinu ed, Routine hydrOXYzine 2019-10 Yes 20mg 20 mg, Univ ers (ATARAX) 09 Oral, ity of tablet 20 17:39: Q8HPRN, [place] mg 12 Starting [facility] 08/21/20 at 1139, Until Discontinu ed, Routine, Itching, Anxiety sennosides- 2019-10 Yes 1{tbl} 1 tablet, Univers docusate 09 Oral, ity of sodium 15:00: DAILY, [place] (SENOKOT-S) 00 First dose Me dical 8.6-50 mg on [facility] per tablet 08/21/20 at 1 tablet 0900, Until Discontinu ed, Routine hydrocortis 2019-10 2020- No Topical Un toi one 1 % 10-21- (Apply To ity of cream 15:00: 22:54 Affected [place] 00 :48 Areas), Medical DAILY, Branch First dose on [facility] 08/21/20 at 0900, Until Discontinu ed, Routine venlafaxine 2019-10 Yes 150mg 150 mg, Un toi XR (EFFEXOR 09 Oral, TID, it y of XR) 24 hr 14:00: First dose [place] capsule 150 00 on [facility] Medica l mg 08/21/20 at [facility] 08[facility] at 0656, Until [facility] 08/21/20 at 1139, Routine, Itching, Mild Rash, Congestion /Allergies , alternate with hydroxyzin e hydrOXYzine 2019-10- No 10mg 10 mg, Uni vers (ATARAX) 10-21 Oral, ity of tablet 10 10:20: 12:57 Q6HPRN, [place] mg 22 :12 Starting Medical [facility] 08/21/20 at 0420, Until [facility] 08/21/20 at 0657, Routine, Itching, [...] [facility]ies 00 :00 08/21/20 at [facility] 0330, Branch Routine Polyethylen 2019-10 Yes 17g 17 g, Unive rs e Glycol 10-21 Oral, ity of 3350 08:29: [id number], [place] (MIRALAX) 09 Starting Medica l powder [...] (scale 1-3) sotalol 2019-10- No [facility] 10-21 mouth ity of 240 mg 07:43: 00:00 every 12 [place] tablet 30 :00 (twelve) Medical hours. Branch blood sugar Yes Use to [facility] ers diagnostic 4-25 check ity of (FREESTYLE 00:00: blood [place] LITE 00 glucose Medical STRIPS) 4-5 times Branch strip daily. blood sugar Yes Use to [facility] ers diagnostic 4-25 check ity of (FREESTYLE 00:00: blood [place] LITE 00 glucose Medical STRIPS) 4-5 times Branch strip daily. blood sugar Yes Use to [facility] ers diagnostic 4-25 check ity of (FREESTYLE 00:00: blood [place] LITE 00 glucose Medical STRIPS) 4-5 times Branch strip daily. blood sugar Yes Use to [facility] ers diagnostic 4-25 check ity of (FREESTYLE 00:00: blood [place] LITE 00 glucose Medical STRIPS) 4-5 times Branch strip daily. blood sugar Yes Use to [facility] ers diagnostic 4-25 check ity of (FREESTYLE 00:00: blood [place] LITE 00 glucose Medical STRIPS) 4-5 times Branch strip daily. blood sugar Yes Use to [facility] ers diagnostic -25 check ity of (FREESTYLE 00:00: blood [place] LITE 00 glucose Medical STRIPS) 4-5 times Branch strip daily. blood sugar Yes Use to [facility] ers diagnostic -25 check ity of (FREESTYLE 00:00: blood [place] LITE 00 glucose Medical STRIPS) 4-5 times Branch strip daily. Vital Signs Vital Name Observation Time Observation Value Comments Source Systolic blood 2021-08-22 13:00:00 148 mm[Hg] Univer sity of [facility] Diastolic blood 2021-08-22 13:00:00 84 mm[Hg] Unive rsity [facility] Heart rate 2021-08-22 13:00:00 103 /min [facility] Respiratory rate 2021-08-22 13:00:00 18 /min [facility] Oxygen saturation in 2021-08-22 13:00:00 95 /min [facility] Arterial blood by [facility] Pulse oximetry Branch Body temperature 2021-08-22 12:22:00 36.72 [place] [facility] Systolic blood 2020-12-17 18:35:00 139 mm[Hg] Univer sity of [facility] Diastolic blood 2020-12-17 18:35:00 87 mm[Hg] Unive rsity of [facility] Heart rate 2020-12-17 18:35:00 110 /min [facility] Body temperature 2020-12-17 18:35:00 37.72 [place] [facility] Respiratory rate 2020-12-17 18:35:00 18 /min [facility] saturation in 2020-12-17 18:35:00 93 /min University of Arterial blood by [facility] jose c Pulse oximetry Branch Body [...] 93 /min University of Arterial blood by [facility] Pulse oximetry Branch Body height [...] 93 /min University of Arterial blood by [facility] Pulse oximetry Branch Body weight 2020-08-21 07:20:00 104.962 kg [facility] [place] [facility] BMI 2020-08-21 07:20:00 32.27 kg/m2 [facility] [place] [facility] Systolic blood 2020-08-23 19:27:00 140 mm[Hg] Univer sity of pressure [facility] Diastolic blood 2020-08-23 19:27:00 79 mm[Hg] [facility] Heart rate 2020-08-23 19:27:00 99 /min [facility] Body temperature 2020-08-23 19:27:00 36 [place] [facility] Respiratory rate 2020-08-23 19:27:00 18 /min Univ [facility] Oxygen saturation in 2020-08-23 19:27:00 93 /min [facility] Arterial blood by [facility] Pulse oximetry [place] Body weight 2020-08-21 07:20:00 104.962 kg [facility] BMI 2020-08-21 07:20:00 32.27 kg/m2 [facility] Procedures Procedure Date / Time Performing Clinician Source Performed POCT GLUCOSE (AUTOMATED) 2020-12-17 15:42:00 Favio Harrisonal G Uni [facility] BASIC METABOLIC PANEL 2020-12-17 10:45:00 Paul Bean [facility] (NA, K, CL, CO2, GLUCOSE, [facility] Medica l Branch BUN, CREATININE, CA) CBC WITH DIFF 2020-12-17 10:45:[address] [facility] POCT GLUCOSE (AUTOMATED) 2020-12-17 02:36:00 Vika Harrison G Uni [facility] XR TIBIA FIBULA 2 VW LEFT 2020-12-16 23:38:00 [facility] PO[facility]SE (AUTOMATED) 2020-12-16 23:20:00 Harrison, Premal [facility] GLUCOSE (AUTOMATED) 2020-12-16 20:10:00 Hunter Premal [facility] PO[facility] GLUCOSE (AUTOMATED) 2020-12-16 14:43:00 Hunter Premal [facility] BASIC METABOLIC PANEL 2020-12-16 13:51:00 Paul Bean [facility] (NA, K, CL, CO2, GLUCOSE, [facility] BUN, CREATININE, CA) CBC WITH DIFF 2020-12-16 13:51:[address] [facility] POCT GLUCOSE (AUTOMATED) 2020-12-16 04:00:00 Harrison, Premal G Uni versity of [facility] POCT GLUCOSE (AUTOMATED) 2020-12-16 00:14:00 Harrison, Premal G Uni versity of [facility] CT CHEST PULMONARY 2020-12-15 22:29:38 Paul Bean [facility] ANGIOGRAM [facility] POCT GLUCOSE (AUTOMATED) 2020-12-15 19:26:00 Harrison, Premal G Uni versity of [facility] POCT GLUCOSE (AUTOMATED) 2020-12-15 15:13:00 Harrison, Premal [facility] ECG ROUTINE & RHYTHM 2020-12-15 14:25:27 Cailin Romo [facility] Branch MAGNESIUM 2020-12-15 12:01:[address] [facility] BASIC METABOLIC PANEL 2020-12-15 12:01:00 Paul Bean [facility] (NA, K, CL, CO2, GLUCOSE, [facility] BUN, CREATININE, CA) CBC WITH DIFF 2020-12-15 12:01:[address] [facility] POCT GLUCOSE (AUTOMATED) 2020-12-15 03:57:00 Harrison, Premal G Uni versity of [facility] POCT GLUCOSE (AUTOMATED) 2020-12-14 23:31:00 Harrison, Premal G Uni versity of [facility] POCT GLUCOSE (AUTOMATED) 2020-12-14 19:08:00 Harrison, Premal G Uni versity of [facility] POCT GLUCOSE (AUTOMATED) 2020-12-14 15:11:00 Harrison, Premal G Uni versity of [facility] POCT GLUCOSE (AUTOMATED) 2020-12-14 02:36:00 Harrison, Premal G Uni versity of [facility] POCT GLUCOSE (AUTOMATED) 2020-12-13 23:32:00 Harrison, Premal G Uni versity of [facility] POCT GLUCOSE (AUTOMATED) 2020-12-13 18:08:00 Harrison, Premal G Uni versity of [facility] BASIC METABOLIC PANEL 2020-12-13 15:39:00 Paul Bean [facility] (NA, K, CL, CO2, GLUCOSE, [facility] BUN, CREATININE, CA) CBC WITH DIFF 2020-12-13 15:39:[address] [facility] POCT GLUCOSE (AUTOMATED) 2020-12-13 14:06:00 Harrison, Premal G Uni versity of [facility] POCT GLUCOSE (AUTOMATED) 2020-12-13 03:07:00 Harrison, Premal G Uni versity of [facility] POCT GLUCOSE (AUTOMATED) 2020-12-12 23:52:00 Harrison, Premal G Uni versity of [facility] POCT GLUCOSE (AUTOMATED) 2020-12-12 20:28:00 Harrison, Premal G Uni versity of [facility] POCT GLUCOSE (AUTOMATED) 2020-12-12 19:14:00 Harrison, Premal G Uni versity of [facility] POCT GLUCOSE (AUTOMATED) 2020-12-12 14:33:00 Harrison, Premal G Uni versity of [facility] MAGNESIUM 2020-12-12 08:58:[address] [facility] BASIC METABOLIC PANEL 2020-12-12 08:58:00 Paul Bean [facility] (NA, K, CL, CO2, GLUCOSE, [facility] BUN, CREATININE, CA) CBC WITH DIFF 2020-12-12 08:58:[address] [facility] US ABDOMEN LIMITED 2020-12-12 06:32:26 Paul Bean [facility] POCT GLUCOSE (AUTOMATED) 2020-12-12 03:40:00 Harrison, Premal G Uni versity of [facility] POCT GLUCOSE (AUTOMATED) 2020-12-12 00:06:00 Harrison, Premal G Uni versity [facility] [place] [facility] XR HIPS 3 VW LEFT 2020-12-11 20:20:00 Paul Bean Sivakumar [facility] HB ECG ROUTINE & RHYTHM 2020-12-11 20:04:06 Demetrius [facility] VITAMIN B6, PLASMA 2020-12-11 19:17:00 Paul Bean Sivakumar [facility] POCT GLUCOSE (AUTOMATED) 2020-12-11 19:06:[address] [facility] CREATINE KINASE 2020-12-11 18:22:00 Parvez [facility] VITAMIN B12, LEVEL 2020-12-11 18:22:00 Vikas [facility] FOLATE 2020-12-11 18:22:00 Vikas [facility] THYROID STIMULATING 2020-12-11 18:22:00 Demetrius [facility] HORMONE [facility] PROCALCITONIN 2020-12-11 18:22:00 Vikas [facility] VITAMIN B1 (THIAMINE), 2020-12-11 18:22:00 [facility] CT HEAD WO CONTRAST 2020-12-11 14:07:35 Sweetie Stout [facility] URINALYSIS 2020-12-11 13:44:00 Singer [facility] URINE CULTURE 2020-12-11 13:44:00 Singer [facility] COVID-19 (ID NOW RAPID 2020-12-11 12:31:00 Paco Lacey [facility] TESTING) Medical Branch LAB ONLY COVID 2020-12-11 12:31:00 Singer [facility] INTERPRETATION [facility] XR CHEST 1 VW 2020-12-11 12:07:24 Singer [facility] BLOOD CULTURE SCREEN 2020-12-11 12:02:00 Paco Lacey [facility] MAGNESIUM 2020-12-11 12:02:00 [facility] 2020-12-11 12:02:[address] [facility] COMP. METABOLIC PANEL 2020-12-11 12:02:00 [id number] Medical [place] CBC WITH DIFF 2020-12-11 12:02:00 Singer [facility] LACTIC ACID WHOLE BLOOD 2020-12-11 12:02:00 Singer Paco [facility] BLOOD CULTURE SCREEN 2020-12-11 11:42:00 Singer Paco [facility] EMERGENCY SERVICES 2020-12-11 06:01:00 Doctor Unassnadya, [facility] AGREEMENTS AND [place] Medical [place] AUTHORIZATIONS HOSPITAL ADMISSION 2020-12-11 06:01:00 Doctor Unaowen, [facility] Name Medical [place] HOME HEALTH - OTHER 2020-11-11 06:01:00 Doctor Tabitha [facility] [place] Medical [place] HOME HEALTH - OTHER 2020-10-30 06:01:00 Doctor Unaowen [facility] Name Medical [place] EXTERNAL PROVIDER RECORDS 2020-09-01 06:01:00 Doctor Tabitha, [facility] Name [facility] POCT GLUCOSE (AUTOMATED) 2020-08-23 18:09:00 Kelly [place] [facility] POCT GLUCOSE (AUTOMATED) 2020-08-23 14:14:00 Kelly [place] [facility] MAGNESIUM 2020-08-23 11:18:00 Ramya [facility] BASIC METABOLIC PANEL 2020-08-23 11:18:00 [place] [facility] (NA, K, CL, CO2, GLUCOSE, Medica l Branch BUN, CREATININE, CA) CBC WITH DIFF 2020-08-23 11:18:00 [place] [facility] POCT GLUCOSE (AUTOMATED) 2020-08-23 10:21:00 Kelly Washington [facility] POCT GLUCOSE (AUTOMATED) 2020-08-23 05:55:00 Kelly Washington [facility] POCT GLUCOSE (AUTOMATED) 2020-08-23 03:00:00 Kelly Washington Jada versity of [facility] POCT GLUCOSE (AUTOMATED) 2020-08-22 23:38:00 Kelly Washington Jada versity of [facility] POCT GLUCOSE (AUTOMATED) 2020-08-22 19:04:00 Kelly Washington Jada versity of [facility] POCT GLUCOSE (AUTOMATED) 2020-08-22 13:49:00 Kelly Washington Jada versity [facility] MAGNESIUM 2020-08-22 10:10:00 [place], [facility] HEPATIC FUNCTION PANEL 2020-08-22 10:10:00 Aguila Melchor [facility] ([id number]) (ALB,T.PRO,BILI Medical Branch T,BU/BC,ALT,AST,ALK PHOS) BASIC METABOLIC PANEL 2020-08-22 10:10:00 [place] [facility] (NA, K, CL, CO2, GLUCOSE, Medica l Branch BUN, CREATININE, CA) LIPID PANEL ([id number])(TOTAL 2020-08-22 10:10:00 Ramya, [facility] CHOLESTEROL, Medical [place] TRIGLYCERIDES, HDL) CBC WITH DIFF 2020-08-22 10:10:00 [place], [facility] POCT GLUCOSE (AUTOMATED) 2020-08-22 10:10:00 [facility] PO[facility] GLUCOSE ([facility]OMATED) 2020-08-22 07:13:00 Kelly Washington versity of [facility] POCT GLUCOSE (AUTOMATED) 2020-08-22 02:24:00 Kelly Washington versity of [facility] POCT GLUCOSE (AUTOMATED) 2020-08-21 23:40:00 Kelly Washington versity of [facility] POCT GLUCOSE (AUTOMATED) 2020-08-21 18:10:00 Kelly Washington versity of [facility] POCT GLUCOSE (AUTOMATED) 2020-08-21 13:39:00 Kelly Washington [facility] ETHANOL 2020-08-21 12:35:00 [facility] 2020-08-21 12:35:00 Padmini [facility] GALV ONLY - SYPHILIS 2020-08-21 12:35:00 Padmini [facility] IGG/IGM [facility] LACTATE DEHYDROGENASE 2020-08-21 10:09:00 Ramya, [facility] GALV/CLC ONLY - URINE 2020-08-21 10:09:00 Richie [facility] DRUG (IMMUNOASSAY) - 4 ER Medica l Branch PANEL URINALYSIS 2020-08-21 10:09:00 [place], [facility] URINE CULTURE 2020-08-21 10:09:00 Ramya, [facility] PROCALCITONIN 2020-08-21 10:09:00 [place], [facility] POCT GLUCOSE (AUTOMATED) 2020-08-21 09:41:00 Kelly Washington [facility] PROTHROMBIN TIME / INR 2020-08-21 08:32:00 [place], [facility] ACTIVATED PARTIAL 2020-08-21 08:32:00 [place], [facility] C-REACTIVE PROTEIN 2020-08-21 08:31:00 [place], [facility] HEPATIC FUNCTION PANEL 2020-08-21 08:31:00 [place], [facility] ([id number]) (ALB,T.PRO,BILI Medical Branch T,BU/BC,ALT,AST,ALK PHOS) BASIC METABOLIC PANEL 2020-08-21 08:31:00 Ramya, [facility] (NA, K, CL, CO2, GLUCOSE, Medica l Branch BUN, CREATININE, CA) SEDIMENTATION RATE 2020-08-21 08:31:00 Ramya, [facility] CBC WITH DIFF 2020-08-21 08:31:00 [place], [facility] GLYCOSYLATED HEMOGLOBIN 2020-08-21 08:31:00 Ramya, [facility] (A1C) Medical [place] HIV 1/2 AG-AB WITH REFLEX 2020-08-21 08:31:00 [facility] COVID-19 (ID NOW RAPID 2020-08-21 08:20:00 Haily Bui [facility] TESTING) Medical Branch LAB ONLY COVID 2020-08-21 08:20:00 [place] [facility] [place] INTERPRETATION [facility] Branch Encounters Start End Encounter Admission Attending Care Care Encounter Source Date/Time Date/Time Type Type Clinicians Facility Department ID 2022-11-13 Outpatient 3 [id number] ENCPL REF [id number] [facility] 11:39:58 0201 [facility] Re[facility] it[facility] Peariftikhar dang 2020-08-21 Inpatient U [place], [place]TONG KVNG [id number] Univers 01:07:00 KELLY cantu [facility] 2022-11-14 2022-11-28 Inpatient 3 [facility] ENCPL DELVIS [id number] [facility] 20:40:00 13:29:00 shaggy [facility]202 [facility] Health Rehabil itation Peariftikhar d 2021-08-22 2021-08-22 Emergency X [facility] ERT [id number] Univers 06:21:00 08:02:00 SWEETIE cantu [facility] 2021-08-22 2021-08-[address] [facility] [id number] Univers 06:21:00 08:02:00 Sweetie LOTT [id number] i ty of [place] 4.2.7.2.686 [facility] s BIVALVE [id number] [facility] 084 Branch 2020-12-28 2020-12-28 Telephone [facility] 1.2.840.114 [id number] Univers 00:00:00 00:00:00 Calvin WILLIAM [id number] it y of CARE 4.2.7.2.686 [facility] [id number] Co dical 220 Branch 2020-12-28 2020-12-[address] [facility] 1.2.840.114 [id number] 00:00:00 00:00:00 Calvin WILLIAM [id number] CARE 4.2.7.2.686 PAVILLION [id number] 220 2020-12-19 2020-12-19 Transition Tuan Peters 1.2.840.114 [id number] Univers 00:00:00 00:00:00 of Care Ruchi Braswell [id number] it [place] [id number] [facility] 403 Branch 2020-12-19 2020-12-19 Transition Tuan Peters 1.2.840.114 [id number] 00:00:00 00:00:00 of Care Ruchi Braswell [id number] [place] 4.2.7.2.686 [id number] 403 2020-12-11 2020-12-17 [facility] Paco Lacey 1.2.840.1 [id number] Univers 05:11:00 16:00:00 Encounter HarrisonFaviovik Amaya [id number] ity of [facility] 4.2.7.2.686 [place] [id number] [facility] 096 Branch 2020-12-11 2020-12-[address] [facility] [id number] Univers 05:11:00 16:00:00 ity of [facility] 2020-12-11 2020-12-17 [facility] Paco Lacey 1.2.840.1 14 [id number] 05:11:00 16:00:00 Encounter Vika Harrison Monique [id number] [facility] 4.2.7.2.686 [id number] 2020-11-16 2020-11-[address] [facility] ERT [id number] Univers 09:31:00 09:31:00 PACO cantu of [facility] 2020-11-11 2020-11-11 Orders Doctor CUI 1.2.840.114 [id number] Univers 00:00:00 00:00:00 Only Unassigned, MONIQUE [id number] ity of [place] [facility] 4.2.7.2.686 Jeff as [id number] [address] 2020-11-11 2020-11-11 Orders Doctor BASILIA 1.2.840.114 [id number] 00:00:00 00:00:00 Only Unassigned, MONIQUE 350.1.13.10 [place] [facility] 4.2.7.2.686 [id number] [facility] 2020-11-07 2020-11-07 Telephone [facility] [id number] [facility] 00:00:00 00:00:00 Sendsiobhan Lott 350.1.13.10 ity [place] Profess[place] [id number] [address] 2020-11-07 2020-11-07 Telephone [facility] [id number] 00:00:00 00:00:00 Angi Lott 350.1.13.10 [place] 4.2.7.2.686 Professio [id number] [address] 2020-10-30 2020-10-30 Orders Doctor BASILIA 1.2.840.114 [id number] [facility] 00:00:00 00:00:00 Only Unassigned, MONIQUE 350.1.13.10 ity of [place] [facility] 4.2.7.2.686 Jeff as [id number] [address] 2020-10-30 2020-10-30 Orders Doctor BASILIA 1.2.840.114 [id number] 00:00:00 00:00:00 Only Unassigned, MONIQUE 350.1.13.10 [place] [facility] 4.2.7.2.686 [id number] [facility] 2020-09-26 2020-09-26 Telephone [facility] 1.2.840.114 [id number] [facility] 00:00:00 00:00:00 [facility] 350.1.13.10 i ty of [place] [id number] [address] 2020-09-26 2020-09-26 Telephone [facility] 1.2.840.114 [id number] 00:00:00 00:00:00 [facility] 350.1.13.10 CLINICS 4.2.7.2.686 [id number] 2020-09-01 2020-09-01 Orders Doctor BASILIA 1.2.840.114 [id number] Univers 00:00:00 00:00:00 Only Unassigned, MONIQUE 350.1.13.10 ity of [place] [facility] 4.2.7.2.686 Jeff as [id number] [facility] 009 Branch 2020-09-01 2020-09-01 Orders Doctor BASILIA 1.2.840.114 [id number] 00:00:00 00:00:00 Only Unassigned, MONIQUE 350.1.13.10 [place] [facility] 4.2.7.2.686 [id number] 2020-08-25 2020-08-25 Transition uTan Peters 1.2.840.114 [id number] Univers 00:00:00 00:00:00 of Care Ruchi Braswell 350.1.13.10 it [place] [id number] [facility] 403 Branch 2020-08-25 2020-08-25 Transition Tuan Peters 1.2.840.114 [id number] 00:00:00 00:00:00 of Care Ruchi Braswell 350.1.13.10 [place] 4.2.7.2.686 [id number] 2020-08-21 2020-08-23 [facility] 1. 2.840.114 [id number] [facility] 01:07:00 18:35:00 Encounter Mukul Gallardoy 350.1.13. [address] [facility] 4.2.7.2.686 Jeff as [id number] [facility] 095 Branch 2020-08-21 2020-08-23 [facility] Ayleen 1.2.840.114 [id number] 01:07:00 18:35:00 Encounter Kelly Monique 350.1.13.10 [facility] 4.2.7.2.686 [id number] Results Test Description Test Time Test Comments Results Result Comments Source POCT GLUCOSE (AUTOMATED) 2020-12-17 15:43:35 Test Item Value Reference Range Interpretation Comme nts POCT GLU (test code = 8745997377) 129 mg/dL 70-110 H Lab Interpretation (test code = 66396-9) Abnormal [facility] [place] METABOLIC PANEL (NA, K, CL, CO2, GLUCOSE, BUN, CREATININE, CA)2020-12-17 11:45:07 Test Item Value Reference Range Interpretation Comments NA (test code = 137 mmol/L 135-145 3675254243) K (test code = 3.5 mmol/L 3.5-5.0 6206078348) CL (test code = 103 mmol/L 98-108 6766398665) CO2 TOTAL (test code = 26 mmol/L 23-31 2759971386) AGAP (test code = 2-16 9183038678) BUN (test code = 11 mg/dL 7-23 9641568823) GLUCOSE (test code = 175 mg/dL 70-110 H 0351987286) CREATININE (test code = 0.62 mg/dL 0.60-1.25 1274552486) CALCIUM (test code = 9.0 mg/dL 8.6-10.6 7733619252) eGFR Calculation mL/min/1.73m2 (Non-) (test code = 6133525142) eGFR Calculation mL/min/1.73m2 () (test code = 8563676956) JAMES (test code = JAMES) Association of [...] tests). Lab Interpretation Abnormal (test code = 93545-0) [facility] WITH [id number] 11:07:27 Test Item Value Reference Range Interpretation [...] RDW-SD (test code = 45.2 fL 38.5-51.6 66428-8) RDW-CV (test code = 16.9 % 12.1-15.4 H 788-0) PLT (test code = See_Comment H [Automated 777-3) message] The sy stem which generated this result transmitted reference range : 150 - 328 10*3/ ?L. The reference r torito was not used to interpret this result as normal/abnormal . MPV (test code = 8.1 fL 9.8-13.0 L 19712-2) NRBC/100 WBC (test See_Comment [Automat ed code = 5690312134) message] The system which generated this result transmitted reference range : 0.0 - 10.0 /100 WBCs. The refer ence range was not u sed to interpret th is result as normal/abnormal . NRBC x10^3 (test code <0.01 See_Comment [Auto mated = 2103023067) message] The s ystem which generated this result transmitted reference range : 10*3/?L. The reference range was not used to interpret this result as normal/abnormal . GRAN MAT (NEUT) % 72.8 % (test code = 770-8) IMM GRAN % (test code 0.60 % = 6637451405) LYMPH % (test code = 18.4 % 736-9) MONO % (test code = 5.7 % 5905-5) EOS % (test code = 1.8 % 713-8) BASO % (test code = 0.7 % 706-2) GRAN MAT x10^3(ANC) 8.23 10*3/uL 1.99-6.95 H (test code = 8671246486) IMM GRAN x10^3 (test 0.07 10*3/uL 0.00-0.06 H code = 6488898990) LYMPH x10^3 (test code 2.08 10*3/uL 1.09-3.23 = 731-0) MONO x10^3 (test code 0.65 10*3/uL 0.36-1.02 = 742-7) EOS x10^3 (test code = 0.20 10*3/uL 0.06-0.53 711-2) BASO x10^3 (test code 0.08 10*3/uL 0.01-0.09 = 704-7) Lab Interpretation Abnormal (test code = 82579-0) [facility] GLUCOSE (AUTOMATED)2020-12-17 06:03:38 Test Item Value Reference Range Interpretation Comments POCT GLU (test code = 4332376899) 75 mg/dL 70-110 Lab Interpretation (test code = Normal 63058-5) [facility] [id number] 00:01:00 Test Item Value Reference Range Interpretation Comments VIT B6 (test code = 13.1 nmol/L 20.0-125.0 L INTERPRE TIVE 14439-9) INFORMATION: Vi tamin B6 (Pyridoxal 5-Phosphate) Pyridoxal 5'-phosphate me asured in a specimen collected follo wing an 8-hour or overnight fast accurately clara cates vitamin B6 nutritional sta tus. Non-fasting spe cimen concentration reflects recent vitamin intake. This test was develo ped and its perform ance characteristics determined by [employer] [facility]. I t has not been cleare d or approved by the [place] Food and Drug Administration. This test was perfor med in a CLIA certifie d laboratory and is intended for cl inical purposes.Perfor med By: [employer] [place] [address] [id number] Director: Namrata Klein MD Lab Interpretation Abnormal (test code = 15670-8) [facility] TIBIA FIBULA 2 VW [id number] 23:57:09 Tricompartmental knee joint osteoarthrosis.XR TIBIA FIBULA 2 VW LEFT INDICATION: Left lower extremity pain from knee down to ankle COMPARISON: None FINDINGS: Moderate to severe tricompartmental knee joint osteoarthrosis. Diffusemuscle atrophy and osteopenia. No acute fracture or dislocation. Comb, Radiant Results Inft User - 12/16/2020 5:58 PM CSTXR TIBIA FIBULA 2 VW LEFTINDICATION: Left lower extremity pain from knee down to ankle COMPARISON: NoneFINDINGS:Moderate to severe tricompartmental knee joint osteoarthrosis. Diffusemuscle atrophy and osteopenia. No acute fracture or dislocation.IMPRESSIONTricompartmental knee joint osteoarthrosis.[facility] GLUCOSE (AUTOMATED) 2020-12-16 23:27:00 Test Item Value Reference Range Interpretation Comments POCT GLU (test code = 3326323509) 114 mg/dL 70-110 H Lab Interpretation (test code = Abnormal 34476-7) [facility] GLUCOSE (AUTOMATED)2020-12-16 20:12:00 Test Item Value Reference Range Interpretation Comments POCT GLU (test code = 9063458912) 105 mg/dL 70-110 Lab Interpretation (test code = Normal 53431-1) [facility]2020-12-16 14:44:00 Test Item Value Reference Range Interpretation Comments POCT GLU (test code = 8500089794) 153 mg/dL 70-110 H Lab Interpretation (test code = Abnormal 87859-9) [facility] METABOLIC PANEL (NA, K, CL, CO2, GLUCOSE, BUN, CREATININE, CA)2020-12-16 14:23:00 Test Item Value Reference Range Interpretation Comments NA (test code = 138 mmol/L 135-145 3190694345) K (test code = 3.4 mmol/L 3.5-5.0 L 8259849998) CL (test code = 100 mmol/L 98-108 5867337634) CO2 TOTAL (test code = 31 mmol/L 23-31 9489481092) AGAP (test code = 2-16 4073910152) BUN (test code = 11 mg/dL 7-23 2807866504) GLUCOSE (test code = 162 mg/dL 70-110 H 5079611455) CREATININE (test code = 0.64 mg/dL 0.60-1.25 9554452537) CALCIUM (test code = 8.9 mg/dL 8.6-10.6 4579684407) eGFR Calculation mL/min/1.73m2 (Non-) (test code = 3692998317) eGFR Calculation mL/min/1.73m2 () (test code = 9153604191) JAMES (test code = JAMES) Association of [...] tests). Lab Interpretation Abnormal (test code = 97430-7) [facility] WITH [id number] 14:05:00 Test Item Value Reference Range Interpretation Comments WBC (test code = See_Comment H [Automated 8490-2) message] The sy stem which generated this [...] RDW-SD (test code = 45.4 fL 38.5-51.6 48686-3) RDW-CV (test code = 17.0 % 12.1-15.4 H 788-0) PLT (test code = See_Comment H [Automated 777-3) message] The sy stem which generated this result transmitted reference range : 150 - 328 10*3/ ?L. The reference r torito was not used to interpret this result as normal/abnormal . MPV (test code = 8.0 fL 9.8-13.0 L 23801-2) NRBC/100 WBC (test See_Comment [Automat ed code = 6000949698) message] The system which generated this result transmitted reference range : 0.0 - 10.0 /100 WBCs. The refer ence range was not u sed to interpret th is result as normal/abnormal . NRBC x10^3 (test code <0.01 See_Comment [Auto mated = 9696567400) message] The s ystem which generated this result transmitted reference range : 10*3/?L. The reference range was not used to interpret this result as normal/abnormal . GRAN MAT (NEUT) % 70.0 % (test code = 770-8) IMM GRAN % (test code 0.70 % = 7830768497) LYMPH % (test code = 20.5 % 736-9) MONO % (test code = 7.1 % 5905-5) EOS % (test code = 1.0 % 713-8) BASO % (test code = 0.7 % 706-2) GRAN MAT x10^3(ANC) 9.44 10*3/uL 1.99-6.95 H (test code = 3023699344) IMM GRAN x10^3 (test 0.09 10*3/uL 0.00-0.06 H code = 1243157044) LYMPH x10^3 (test code 2.76 10*3/uL 1.09-3.23 = 731-0) MONO x10^3 (test code 0.96 10*3/uL 0.36-1.02 = 742-7) EOS x10^3 (test code = 0.13 10*3/uL 0.06-0.53 711-2) BASO x10^3 (test code 0.10 10*3/uL 0.01-0.09 H = 704-7) Lab Interpretation Abnormal (test code = 57997-4) [facility] District[facility] Culture - Peripheral # [id number] 13:01:00 Test Item Value Reference Range Interpretation Comments Blood Culture-Aerobic No organisms No growth Previo us (test code = 81925-7) isolated prelim inary verified result was Culture In Progress on 12/11/2020 at 100 1 CSTPrevious preliminary verified result was No growth a t 24 hours on 12/12/2020 at 070 1 CSTPrevious preliminary verified result was No growth a t 48 hours on 12/13/2020 at 070 1 CSTPrevious preliminary verified result was No growth a t 72 hours on 12/14/2020 at 070 1 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 Blood No organisms No growth Previous Culture-Anaerobic isolated preliminar y (test code = 50947-0) verifi ed result was Culture In Progress on 12/11/2020 at 100 1 CSTPrevious preliminary verified result was No growth a t 24 hours on 12/12/2020 at 070 1 CSTPrevious preliminary verified result was No growth a t 48 hours on 12/13/2020 at 070 1 CSTPrevious preliminary verified result was No growth a t 72 hours on 12/14/2020 at 070 1 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 Lab Interpretation Normal (test code = 51061-8) [facility] - Peripheral # [id number] 13:01:00 Test Item Value Reference Range Interpretation Comments Blood Culture-Aerobic No organisms No growth Previo us (test code = 23698-6) isolated prelim inary verified result was Culture In Progress on 12/11/2020 at 100 1 CSTPrevious preliminary verified result was No growth a t 24 hours on 12/12/2020 at 070 1 CSTPrevious preliminary verified result was No growth a t 48 hours on 12/13/2020 at 070 1 CSTPrevious preliminary verified result was No growth a t 72 hours on 12/14/2020 at 070 1 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 Blood No organisms No growth Previous Culture-Anaerobic isolated preliminar y (test code = 68061-9) verifi ed result was Culture In Progress on 12/11/2020 at 100 1 CSTPrevious preliminary verified result was No growth a t 24 hours on 12/12/2020 at 070 1 CSTPrevious preliminary verified result was No growth a t 48 hours on 12/13/2020 at 070 1 CSTPrevious preliminary verified result was No growth a t 72 hours on 12/14/2020 at 070 1 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 No interval change in [...] stableappearance of intra and extrahepatic biliary ductal dilatation.[facility] GLUCOSE (AUTOMATED)2020-12-15 19:28:00 Test Item Value Reference Range Interpretation Comments POCT GLU (test code = 9713731272) 140 mg/dL 70-110 H Lab Interpretation (test code = Abnormal 77637-7) [facility]2021-[facility]-05 15:26:00 Test Item Value Reference Range Interpretation Comments MAGNESIUM (test code = 3516264354) 2.2 mg/dL 1.7-2.4 Lab Interpretation (test code = Normal 64108-2) [facility] GLUCOSE (AUTOMATED)2020-12-15 15:15:00 Test Item Value Reference Range Interpretation Comments POCT GLU (test code = 2174264857) 181 mg/dL 70-110 H Lab Interpretation (test code = Abnormal 62842-9) [facility] (NA, K, CL, CO2, GLUCOSE, BUN, CREATININE, CA)2020-12-15 13:07:00 Test Item Value Reference Range Interpretation Comments NA (test code = 136 mmol/L 135-145 3839663347) K (test code = 3.6 mmol/L 3.5-5.0 8408504704) CL (test code = 96 mmol/L 98-108 L 7325401180) CO2 TOTAL (test code = 29 mmol/L 23-31 9039047886) AGAP (test code = 2-16 0272236913) BUN (test code = 12 mg/dL 7-23 6566452072) GLUCOSE (test code = 183 mg/dL 70-110 H 2500790332) CREATININE (test code = 0.70 mg/dL 0.60-1.25 0716656615) CALCIUM (test code = 9.2 mg/dL 8.6-10.6 4592911425) eGFR Calculation mL/min/1.73m2 (Non-) (test code = 4911460713) eGFR Calculation mL/min/1.73m2 () (test code = 6444565994) JAMES (test code = JAMES) Association of [...] tests). Lab Interpretation Abnormal (test code = 86830-4) [facility] WITH [id number] 12:32:00 Test Item Value Reference Range Interpretation [...] RDW-SD (test code = 44.4 fL 38.5-51.6 62622-5) RDW-CV (test code = 17.7 % 12.1-15.4 H 788-0) PLT (test code = See_Comment H [Automated 777-3) message] The system which generated this result transmit ronan reference range : 150 - 328 10*3/ ?L. The reference range was not u sed to interpret th is result as normal/abnormal . MPV (test code = 8.1 fL 9.8-13.0 L 13781-6) NRBC/100 WBC (test See_Comment [Automat ed code = 2726454430) message] The system which generated this result transmit ronan reference range : 0.0 - 10.0 /100 WBCs. The reference range was not used to interpret this result as normal/abnormal . NRBC x10^3 (test code <0.01 See_Comment [Auto mated = 7580404106) message] The system which generated this result transmit ronan reference range : 10*3/?L. The reference range was not used to interpret this result as normal/abnormal . GRAN MAT (NEUT) % 74.5 % (test code = 770-8) IMM GRAN % (test code 0.70 % = 3555078420) LYMPH % (test code = 17.4 % 736-9) MONO % (test code = 6.8 % 5905-5) EOS % (test code = 0.2 % 713-8) BASO % (test code = 0.4 % 706-2) GRAN MAT x10^3(ANC) 11.99 10*3/uL 1.99-6.95 H (test code = 0428945243) IMM GRAN x10^3 (test 0.11 10*3/uL 0.00-0.06 H code = 3167739525) LYMPH x10^3 (test code 2.80 10*3/uL 1.09-3.23 = 731-0) MONO x10^3 (test code 1.10 10*3/uL 0.36-1.02 H = 742-7) EOS x10^3 (test code = 0.03 10*3/uL 0.06-0.53 L 711-2) BASO x10^3 (test code 0.06 10*3/uL 0.01-0.09 = 704-7) Lab Interpretation Abnormal (test code = 27864-6) [facility] GLUCOSE (AUTOMATED)2020-12-15 04:16:00 Test Item Value Reference Range Interpretation Comments POCT GLU (test code = 1834545327) 200 mg/dL 70-110 H Lab Interpretation (test code = Abnormal 20069-3) [facility] District[facility]IT[facility]IN B1 (THIAMINE), WHOLE [id number] 00:30:00 Test Item Value Reference Range Interpretation Comments Vitamin B1, Whole 136 nmol/L 70-180 INTERPRETI VE INFORMATION: Blood (test code = Vitamin B 1, Whole Blood 09370-5) This assay júnior ures the concentration o [...] for clinical purposes.Perfor med By: [facility] [place] [address] [id number] aboratory Director: Namrata Klein MD [facility] GLUCOSE (AUTOMATED)2020-12-14 23:35:00 Test Item Value Reference Range Interpretation Comments POCT GLU (test code = 2987185754) 151 mg/dL 70-110 H Lab Interpretation (test code = Abnormal 86596-4) [facility] GLUCOSE (AUTOMATED)2020-12-14 19:19:00 Test Item Value Reference Range Interpretation Comments POCT GLU (test code = 7239042140) 193 mg/dL 70-110 H Lab Interpretation (test code = Abnormal 31436-0) [facility] GLUCOSE (AUTOMATED)2020-12-14 15:22:00 Test Item Value Reference Range Interpretation Comments POCT GLU (test code = 4654227715) 221 mg/dL 70-110 H Lab Interpretation (test code = Abnormal 63863-3) [facility] GLUCOSE (AUTOMATED)2020-12-14 02:37:00 Test Item Value Reference Range Interpretation Comments POCT GLU (test code = 0784259327) 210 mg/dL 70-110 H Lab Interpretation (test code = Abnormal 28575-3) [facility] GLUCOSE (AUTOMATED)2020-12-13 23:33:00 Test Item Value Reference Range Interpretation Comments POCT GLU (test code = 5756544011) 182 mg/dL 70-110 H Lab Interpretation (test code = Abnormal 32076-2) [facility] GLUCOSE (AUTOMATED)2020-12-13 18:09:00 Test Item Value Reference Range Interpretation Comments POCT GLU (test code = 9873299086) 150 mg/dL 70-110 H Lab Interpretation (test code = Abnormal 75569-7) [facility] METABOLIC PANEL (NA, K, CL, CO2, GLUCOSE, BUN, CREATININE, CA)2020-12-13 16:27:00 Test Item Value Reference Range Interpretation Comments NA (test code = 136 mmol/L 135-145 1832161796) K (test code = 3.7 mmol/L 3.5-5.0 2508257146) CL (test code = 96 mmol/L 98-108 L 5906930509) CO2 TOTAL (test code = 29 mmol/L 23-31 4661594293) AGAP (test code = 2-16 4100349903) BUN (test code = 6 mg/dL 7-23 L 5007420275) GLUCOSE (test code = 212 mg/dL 70-110 H 1607790985) CREATININE (test code = 0.61 mg/dL 0.60-1.25 0185838399) CALCIUM (test code = 9.5 mg/dL 8.6-10.6 1651220800) eGFR Calculation mL/min/1.73m2 (Non-) (test code = 2279968686) eGFR Calculation mL/min/1.73m2 () (test code = 1046270545) JAMES (test code = JAMES) Association of [...] tests). Lab Interpretation Abnormal (test code = 08622-3) [facility] WITH [id number] 16:10:00 Test Item Value Reference Range Interpretation [...] RDW-SD (test code = 43.3 fL 38.5-51.6 35773-2) RDW-CV (test code = 16.2 % 12.1-15.4 H 788-0) PLT (test code = See_Comment H [Automated 777-3) message] The sy stem which generated this result transmitted reference range : 150 - 328 10*3/ ?L. The reference r torito was not used to interpret this result as normal/abnormal . MPV (test code = 8.2 fL 9.8-13.0 L 02898-3) NRBC/100 WBC (test See_Comment [Automat ed code = 4348257877) message] The system which generated this result transmitted reference range : 0.0 - 10.0 /100 WBCs. The refer ence range was not u sed to interpret th is result as normal/abnormal . NRBC x10^3 (test code <0.01 See_Comment [Auto mated = 8971264346) message] The s ystem which generated this result transmitted reference range : 10*3/?L. The reference range was not used to interpret this result as normal/abnormal . GRAN MAT (NEUT) % 86.2 % (test code = 770-8) IMM GRAN % (test code 0.70 % = 1444243867) LYMPH % (test code = 10.2 % 736-9) MONO % (test code = 2.5 % 5905-5) EOS % (test code = 0.1 % 713-8) BASO % (test code = 0.3 % 706-2) GRAN MAT x10^3(ANC) 9.61 10*3/uL 1.99-6.95 H (test code = 4071123575) IMM GRAN x10^3 (test 0.08 10*3/uL 0.00-0.06 H code = 5923850655) LYMPH x10^3 (test code 1.14 10*3/uL 1.09-3.23 = 731-0) MONO x10^3 (test code 0.28 10*3/uL 0.36-1.02 L = 742-7) EOS x10^3 (test code = <0.03 0.06-0.53 L 711-2) BASO x10^3 (test code 0.03 10*3/uL 0.01-0.09 = 704-7) Lab Interpretation Abnormal (test code = 39023-3) [facility]2020-12-13 14:16:00 Test Item Value Reference Range Interpretation Comments POCT GLU (test code = 5064141548) 236 mg/dL 70-110 H Lab Interpretation (test code = Abnormal 65915-5) [facility] ONLY COVID [id number] 04:58:00COVID DMT InterpretationInterpretation/Recommendations: Molecular NAAT Tests for [...] the patient has had at [facility], including molecular NAAT testing (more commonly known as PCR testing and Rapid ID Now testing) and antibody testing. It does not take into account any testingthat a patient has had outside of the [facility] medical record. [facility] LABORATORY SERVICESCOVID EzaekfmHORX-QmW-5 Rapid ID NOW (no units) ? ? Date ? Value ? 12/11/2020 ? Not Detected ? ? ? 11/16/2020 ? Not Detected ? ? ? 08/21/2020 ? Not Detected ? [facility]Un[facility] 2020-12-13 03:11:00 Test Item Value Reference Range Interpretation Comments POCT GLU (test code = 4043370119) 171 mg/dL 70-110 H Lab Interpretation (test code = Abnormal 81778-1) [facility] GLUCOSE (AUTOMATED)2020-12-13 00:00:00 Test Item Value Reference Range Interpretation Comments POCT GLU (test code = 4232254227) 118 mg/dL 70-110 H Lab Interpretation (test code = Abnormal 46099-0) [facility] GLUCOSE (AUTOMATED)2020-12-12 20:29:00 Test Item Value Reference Range Interpretation Comments POCT GLU (test code = 3695105581) 173 mg/dL 70-110 H Lab Interpretation (test code = Abnormal 99516-6) [facility] DistrictUS ABDOMEN [id number] 19:56:17 1. ?Hepatic steatosis. However, limited evaluation [...] main portal veinwasevaluated with color Doppler imaging. Security Incident Handler images were obtainedfor the record. COMPARISON: Ultrasound [...] portal vein wasevaluated with color Doppler imaging. Security Incident Handler images wereobtainedfor the record.COMPARISON: Ultrasound abdomen 11/17/2028. [...] and agree with the abovereport.[facility]2020-12-12 19:24:00 Test Item Value Reference Range Interpretation Comments POCT GLU (test code = 2462817569) 230 mg/dL 70-110 H Lab Interpretation (test code = Abnormal 44665-2) [facility] CHEST 1 [id number] 15:16:46 Low lung volumes with mild perihilar [...] reviewed this study and agree with theabove report.[facility]2020-12-12 14:34:00 Test Item Value Reference Range Interpretation Comments POCT GLU (test code = 7757449507) 225 mg/dL 70-110 H Lab Interpretation (test code = Abnormal 42895-6) [facility] DistrictURINE [id number] 13:28:00 Test Item Value Reference Range Interpretation Comments URINE CULTURE (test < 10,000 CFU/mL mixed code = 630-4) aerobic organisms - suggests endogenous microbial contamination [facility] Met[facility] (NA, K, CL, CO2, GLUCOSE, BUN, CREATININE, CA)2020-12-12 10:05:00 Test Item Value Reference Range Interpretation Comments NA (test code = 136 mmol/L 135-145 6739928511) K (test code = 3.5 mmol/L 3.5-5.0 4763041730) CL (test code = 100 mmol/L 98-108 7864670395) CO2 TOTAL (test code = 31 mmol/L 23-31 5282336216) AGAP (test code = 2-16 3490039335) BUN (test code = 7 mg/dL 7-23 1876761683) GLUCOSE (test code = 259 mg/dL 70-110 H 4963522938) CREATININE (test code = 0.63 mg/dL 0.60-1.25 7428616228) CALCIUM (test code = 8.5 mg/dL 8.6-10.6 L 3536211866) eGFR Calculation mL/min/1.73m2 (Non-) (test code = 7400523116) eGFR Calculation mL/min/1.73m2 () (test code = 8790400226) JAMES (test code = JAMES) Association of [...] tests). Lab Interpretation Abnormal (test code = 47136-4) [facility] DistrictMagnesium [id number] 10:05:00 Test Item Value Reference Range Interpretation Comments MAGNESIUM (test code = 9781995173) 1.9 mg/dL 1.7-2.4 Lab Interpretation (test code = Normal 60453-5) [facility] with [id number] 09:48:00 Test Item Value Reference Range Interpretation [...] RDW-SD (test code = 46.0 fL 38.5-51.6 52946-8) RDW-CV (test code = 16.1 % 12.1-15.4 H 788-0) PLT (test code = See_Comment H [Automated 777-3) message] The sy stem which generated this result transmitted reference range : 150 - 328 10*3/ ?L. The reference r torito was not used to interpret this result as normal/abnormal . MPV (test code = 8.6 fL 9.8-13.0 L 21452-0) NRBC/100 WBC (test See_Comment [Automat ed code = 8125599563) message] The system which generated this result transmitted reference range : 0.0 - 10.0 /100 WBCs. The refer ence range was not u sed to interpret th is result as normal/abnormal . NRBC x10^3 (test code <0.01 See_Comment [Auto mated = 6192602790) message] The s ystem which generated this result transmitted reference range : 10*3/?L. The reference range was not used to interpret this result as normal/abnormal . GRAN MAT (NEUT) % 70.2 % (test code = 770-8) IMM GRAN % (test code 0.30 % = 8082771662) LYMPH % (test code = 18.8 % 736-9) MONO % (test code = 5.0 % 5905-5) EOS % (test code = 5.2 % 713-8) BASO % (test code = 0.5 % 706-2) GRAN MAT x10^3(ANC) 6.05 10*3/uL 1.99-6.95 (test code = 1700011318) IMM GRAN x10^3 (test 0.03 10*3/uL 0.00-0.06 code = 1578742081) LYMPH x10^3 (test code 1.62 10*3/uL 1.09-3.23 = 731-0) MONO x10^3 (test code 0.43 10*3/uL 0.36-1.02 = 742-7) EOS x10^3 (test code = 0.45 10*3/uL 0.06-0.53 711-2) BASO x10^3 (test code 0.04 10*3/uL 0.01-0.09 = 704-7) Lab Interpretation Abnormal (test code = 34755-7) [facility]2020-12-12 03:42:00 Test Item Value Reference Range Interpretation Comments POCT GLU (test code = 196 mg/dL 70-110 H Notifi ed Provider 7955129959) Lab Interpretation (test Abnormal code = 37571-6) [facility] DistrictF[facility]2021-[facility] 02:24:00 Test Item Value Reference Range Interpretation Comments FOLATE SER (test code = 7024073206) 5.8 ng/mL 3.0-20.0 Lab Interpretation (test code = Normal 49226-1) [facility] DistrictVIT[facility]IN B12, [id number] 00:55:00 Test Item Value Reference Range Interpretation Comments VIT B12 (test code = 844 pg/mL 240-930 5721971127) JAMES (test code = JAMES) Biotin has been reported to cause a positive bias, interpret results relative to patient's use of biotin. Lab Interpretation (test Normal code = 48006-7) [facility]2020-12-12 00:14:00 Test Item Value Reference Range Interpretation Comments POCT GLU (test code = 4401981512) 164 mg/dL 70-110 H Lab Interpretation (test code = Abnormal 31997-7) [facility] DistrictCREATINE [id number] 23:42:00 Test Item Value Reference Range Interpretation Comments CK (test code = 0106544746) <20 33-194 L Lab Interpretation (test code = Abnormal 58647-1) [facility] DistrictTHYROID STIMULATING [id number] 23:17:00 Test Item Value Reference Range Interpretation Comments TSH (test code = See_Comment Biotin has been 6415482895) reported to cau se a negative bias, interpret resul ts relative to pat sanju's use of biotin. [Automated mess age] The system [employer] generated this result transmitted ref erence range: 0.45 - 4 .70 mIU/L. The refe rence range was not u sed to interpret this result as normal/abnor mal. Lab Interpretation (test Normal code = 56408-4) [facility] DistrictXR HIPS 3 VW [id number] 21:41:53No appreciable fracture lines. RL: 6200 ICAL [...] (test 0.13 ng/mL <0.07 H code = 7172155377) JAMES (test code = JAMES) INTERPRETATION OF [...] lung abscess/empyema. For further information please refer to:[email or web address] Lab Interpretation Abnormal (test code = 80801-0) [facility]2020-12-11 19:07:00 Test Item Value Reference Range Interpretation Comments POCT GLU (test code = 5656489024) 274 mg/dL 70-110 H Lab Interpretation (test code = Abnormal 79554-3) [facility] DistrictMAGNESIUM2021-03-01 18:31:00 Test Item Value Reference Range Interpretation Comments MAGNESIUM (test code = 1811096223) 1.9 mg/dL 1.7-2.4 Lab Interpretation (test code = Normal 78666-9) [facility] DistrictFERRITIN [id number] 18:31:00 Test Item Value Reference Range Interpretation Comments FERRITIN (test code = 178.0 ng/mL 18.0-464.0 1005394745) JAMES (test code = JAMES) Biotin has been reported to cause a negative bias, interpret results relative to patient's use of biotin. Lab Interpretation (test Normal code = 98682-1) [facility] HEAD WO [id number] 14:36:47 No acute intracranial abnormality. Dilated ventricles [...] Comments APPEARANCE (test code = Clear Clear 4156278776) COLOR (test code = Yellow Yellow 7219844052) PH (test code = 4.8-8.0 6526920294) SP GRAVITY (test code = 1.003-1.030 3964583598) GLU U QUAL (test code = 500 mg/dL Normal A 3519172017) BLOOD (test code = Negative Negative 9280841463) KETONES (test code = 5 mg/dL Negative A 6243952757) PROTEIN (test code = Negative Negative 2887-8) UROBILIN (test code = Normal Normal 9062827922) BILIRUBIN (test code = Negative Negative 5503911677) NITRITE (test code = Negative Negative 9780777043) LEUK RYAN (test code = Negative Negative 4497044988) RBC/HPF (test code = See_Comment [Autom ated message] 1811104836) The system Razmir generated this result transmit ronan reference range : 0 - 3 HPF. The refe rence range was not u sed to interpret th is result as normal/abnormal . WBC/HPF (test code = See_Comment [Autom ated message] 3498843561) The system Razmir generated this result transmit ronan reference range : 0 - 5 HPF. The refe rence range was not u sed to interpret th is result as normal/abnormal . BACTERIA (test code = Negative Negative 7935092552) MUCOUS (test code = Slight Negative LPF A 5864580053) SQ EPITH (test code = HPF 1840920806) Lab Interpretation (test Abnormal code = 53924-3) [facility] RAPID TESTING[facility]2020-12-11 13:10:00 Test Item Value Reference Range Interpretation Comments SARS-CoV-2 Rapid ID NOW Not Detected Not Detected (test code = 37065-0) JAMES (test code = JAMES) ID NOW COVID-19 Assay is an isothermal nucleic acid amplification test intended for the qualitative detection of nucleic acid from SARS-CoV-2 viral RNA in nasopharyngeal (CREDIT REPRESENTATIVE) specimens. It is used under Emergency [...] indicated. Lab Interpretation Normal (test code = 32277-3) [facility]OLIC PANEL (89648)2020-12-11 12:29:00 Test Item Value Reference Range Interpretation Comments NA (test code = 136 mmol/L 135-145 9729849726) K (test code = 3.5 mmol/L 3.5-5.0 1691266914) CL (test code = 95 mmol/L 98-108 L 3350260949) CO2 TOTAL (test code = 35 mmol/L 23-31 H 9035378045) AGAP (test code = 2-16 9336684072) BUN (test code = 9 mg/dL 7-23 3139037050) GLUCOSE (test code = 329 mg/dL 70-110 H 6015947991) CREATININE (test code = 0.72 mg/dL 0.60-1.25 9124787343) TOTAL BILI (test code = 0.6 mg/dL 0.1-1.2 7242256697) CALCIUM (test code = 9.0 mg/dL 8.6-10.6 7074528550) T PROTEIN (test code = 6.8 g/dL 6.3-8.2 0682435696) ALBUMIN (test code = 3.8 g/dL 3.5-5.0 4036616342) ALK PHOS (test code = 288 U/L 34-122 H 0983806280) ALTv (test code = 46 U/L 5-50 1742-6) AST(SGOT) (test code = 38 U/L 13-40 3059180968) eGFR Calculation mL/min/1.73m2 (Non-) (test code = 8470434602) eGFR Calculation mL/min/1.73m2 () (test code = 8562650635) JAMES (test code = JAMES) Association of [...] tests). Lab Interpretation Abnormal (test code = 33692-9) [facility] District[facility] Whole [id number] 12:23:00 Test Item Value Reference Range Interpretation Comments LACTIC ACID (test code = 2.09 mmol/L 0.50-2.20 7726241958) Lab Interpretation (test code = Normal 80136-9) [facility] WITH [id number] 12:17:00 Test Item Value Reference Range Interpretation Comments WBC (test code = See_Comment H [Automated 5632-2) message] The sy stem which generated this result transmitted reference range : 4.20 - 10.70 10*3/?L. The reference range was not used to interpret this result as normal/abnormal . RBC (test code = See_Comment [Automated 597-8) message] The sy stem which generated this [...] RDW-SD (test code = 44.9 fL 38.5-51.6 74174-6) RDW-CV (test code = 15.9 % 12.1-15.4 H 788-0) PLT (test code = See_Comment H [Automated 777-3) message] The sy stem which generated this result transmitted reference range : 150 - 328 10*3/ ?L. The reference r torito was not used to interpret this result as normal/abnormal . MPV (test code = 8.3 fL 9.8-13.0 L 75776-8) NRBC/100 WBC (test See_Comment [Automat ed code = 3789572940) message] The system which generated this result transmitted reference range : 0.0 - 10.0 /100 WBCs. The refer ence range was not u sed to interpret th is result as normal/abnormal . NRBC x10^3 (test code <0.01 See_Comment [Auto mated = 7300160775) message] The s ystem which generated this result transmitted reference range : 10*3/?L. The reference range was not used to interpret this result as normal/abnormal . GRAN MAT (NEUT) % 77.9 % (test code = 770-8) IMM GRAN % (test code 0.50 % = 2307781633) LYMPH % (test code = 12.2 % 736-9) MONO % (test code = 5.2 % 5905-5) EOS % (test code = 3.7 % 713-8) BASO % (test code = 0.5 % 706-2) GRAN MAT x10^3(ANC) 9.57 10*3/uL 1.99-6.95 H (test code = 3419398120) IMM GRAN x10^3 (test 0.06 10*3/uL 0.00-0.06 code = 7143162900) LYMPH x10^3 (test code 1.50 10*3/uL 1.09-3.23 = 731-0) MONO x10^3 (test code 0.64 10*3/uL 0.36-1.02 = 742-7) EOS x10^3 (test code = 0.46 10*3/uL 0.06-0.53 711-2) BASO x10^3 (test code 0.06 10*3/uL 0.01-0.09 = 704-7) Lab Interpretation Abnormal (test code = 26761-0) [facility] COVID [id number] 18:43:00COVID DMT InterpretationInterpretation/Recommendations: Molecular NAAT Test Results [...] a nasopharyngeal sample, there is approximately a seg-mc-txhkj chance that the patient was infected and [...] based upon aggregate data pooled from the [facility] medical recordincluding both current and prior COVID-19 related testing results for the following tests offered atour institution:A. Tests for the Identification of SARS-CoV-2 RNA:SARS-CoV-2 PCR assays including [place] Aptima, [place] Fusion, Barrett RealTime, and [place] Xpress. SARS-CoV-2 Rapid ID NOW by the ID NOW assay. ? B. Tests for the Identification of SARS-CoV-2 Antibodies: Chemiluminescent immunoassays including Access SARS-CoV-2 IgM (DXI 600), VITROS Egij-JWUH-HzT-2 IgG (Vitros 5600 and Vitros 3600), and Barrett SARS-CoV-2 IgG ([employer] I System). These interpretation comments assume that only the above testing was utilized and that the approved acceptable specimen type(s) were used for a given test. These interpretations are autopopulated into [employer] [place] based on computerized algorithms matching an interpretation code number to the patient's set of test results. While a clinical pathologist evaluates the combinations for clinical accuracy, clinical correlation is recommended as it may not take into account very remote prior testing. Furthermore, it does not consider testing a patient may have had outside of the [facility] system. Additionally, it should be noted that the computerized algorithm treats the results for PCR testing and Rapid ID NOW testing (also PCR) synonymously, and thus, refers to both testing methodologies as PCR tests. Given that the sensitivity of [facility]'s Rapid ID NOW testing platform is [...] may be beneficialin this setting. [facility] LABORATORY SERVICESCOVID KsaeropNFZE-FpE-4 Rapid ID NOW (no units) ? ? Date ? Value ? 08/21/2020 ? Not Detected ? [facility] LABORATORY SERVICESUnThe [facility] CampusPOCT GLUCOSE (AUTOMATED)2020-08-23 18:25:00 Test Item Value Reference Range Interpretation Comments POCT GLU (test code = 8356570381) 297 mg/dL 70-110 H Lab Interpretation (test code = Abnormal 43006-1) [facility]2020-08-23 14:25:00 Test Item Value Reference Range Interpretation Comments POCT GLU (test code = 7145639767) 181 mg/dL 70-110 H Lab Interpretation (test code = Abnormal 76294-0) [facility] (NA, K, CL, CO2, GLUCOSE, BUN, CREATININE, CA)2020-08-23 11:45:00 Test Item Value Reference Range Interpretation Comments NA (test code = 132 mmol/L 135-145 L 7975677706) K (test code = 4.0 mmol/L 3.5-5 0222180808) CL (test code = 96 mmol/L 98-108 L 5110482220) CO2 TOTAL (test code = 33 mmol/L 23-31 H 2042285126) AGAP (test code = 2-16 7479167240) BUN (test code = 9 mg/dL 7-23 7179485917) GLUCOSE (test code = 176 mg/dL 70-110 H 6769725824) CREATININE (test code = 0.66 mg/dL 0.6-1.25 8284109862) CALCIUM (test code = 8.5 mg/dL 8.6-10.6 L 3810393058) eGFR Calculation mL/min/1.73m2 (Non-) (test code = 0829017954) eGFR Calculation mL/min/1.73m2 () (test code = 6023165068) JAMES (test code = JAMES) Association of [...] tests). Lab Interpretation Abnormal (test code = 07631-4) [facility] DistrictMagnesium [id number] 11:45:00 Test Item Value Reference Range Interpretation Comments MAGNESIUM (test code = 0541115454) 2.0 mg/dL 1.7-2.4 Lab Interpretation (test code = Normal 24335-5) [facility] with Ggwkdgixklpi0231-30-25 11:38:00 Test Item Value Reference Range Interpretation Comments WBC (test code = See_Comment [Automated 1390-2) message] The sy stem which generated this [...] RDW-SD (test code = 41.8 fL 38.5-51.6 74962-7) RDW-CV (test code = 14.3 % 12.1-15.4 788-0) PLT (test code = See_Comment H [Automated 777-3) message] The sy stem which generated this result transmitted reference range : 150 - 328 10*3/ ?L. The reference r torito was not used to interpret this result as normal/abnormal . MPV (test code = 8.0 fL 9.8-13 L 93723-4) NRBC/100 WBC (test See_Comment [Automat ed code = 0978164881) message] The system which generated this result transmitted reference range : 0.0 - 10.0 /100 WBCs. The refer ence range was not u sed to interpret th is result as normal/abnormal . NRBC x10^3 (test code <0.01 See_Comment [Auto mated = 0317853815) message] The s ystem which generated this result transmitted reference range : 10*3/?L. The reference range was not used to interpret this result as normal/abnormal . GRAN MAT (NEUT) % 61.5 % (test code = 770-8) IMM GRAN % (test code 2.00 % = 1364427474) LYMPH % (test code = 25.5 % 736-9) MONO % (test code = 6.3 % 5905-5) EOS % (test code = 3.7 % 713-8) BASO % (test code = 1.0 % 706-2) GRAN MAT x10^3(ANC) 5.29 10*3/uL 1.99-6.95 (test code = 0027196392) IMM GRAN x10^3 (test 0.17 10*3/uL 0-0.06 H code = 6060398390) LYMPH x10^3 (test code 2.19 10*3/uL 1.09-3.23 = 731-0) MONO x10^3 (test code 0.54 10*3/uL 0.36-1.02 = 742-7) EOS x10^3 (test code = 0.32 10*3/uL 0.06-0.53 711-2) BASO x10^3 (test code 0.09 10*3/uL 0.01-0.09 = 704-7) Lab Interpretation Abnormal (test code = 87235-3) [facility] GLUCOSE (AUTOMATED)2020-08-23 10:22:00 Test Item Value Reference Range Interpretation Comments POCT GLU (test code = 4904841098) 164 mg/dL 70-110 H Lab Interpretation (test code = Abnormal 11819-3) [facility] GLUCOSE (AUTOMATED)2020-08-23 05:56:00 Test Item Value Reference Range Interpretation Comments POCT GLU (test code = 3404129588) 242 mg/dL 70-110 H Lab Interpretation (test code = Abnormal 64545-1) [facility] GLUCOSE (AUTOMATED)2020-08-23 03:02:00 Test Item Value Reference Range Interpretation Comments POCT GLU (test code = 2404481043) 210 mg/dL 70-110 H Lab Interpretation (test code = Abnormal 12467-9) [facility] GLUCOSE (AUTOMATED)2020-08-22 23:40:00 Test Item Value Reference Range Interpretation Comments POCT GLU (test code = 7727117279) 267 mg/dL 70-110 H Lab Interpretation (test code = Abnormal 29777-5) [facility] GLUCOSE (AUTOMATED)2020-08-22 19:08:00 Test Item Value Reference Range Interpretation Comments POCT GLU (test code = 0625726112) 191 mg/dL 70-110 H Lab Interpretation (test code = Abnormal 67785-4) [facility] GLUCOSE (AUTOMATED)2020-08-22 13:50:00 Test Item Value Reference Range Interpretation Comments POCT GLU (test code = 7098219356) 174 mg/dL 70-110 H Lab Interpretation (test code = Abnormal 47184-6) [facility] DistrictURINE [id number] 12:59:00 Test Item Value Reference Range Interpretation Comments URINE CULTURE (test No aerobic growth (< code = 630-4) 1000 CFU/mL) [facility] with Vtzwxajckcye9617-06-15 11:28:00 Test Item Value Reference Range Interpretation Comments WBC (test code = See_Comment [Automated 1490-2) message] The sy stem which generated this [...] RDW-SD (test code = 42.5 fL 38.5-51.6 56758-6) RDW-CV (test code = 14.5 % 12.1-15.4 788-0) PLT (test code = See_Comment H [Automated 777-3) message] The sy stem which generated this result transmitted reference range : 150 - 328 10*3/ ?L. The reference r torito was not used to interpret this result as normal/abnormal . MPV (test code = 8.0 fL 9.8-13 L 26666-9) NRBC/100 WBC (test See_Comment [Automat ed code = 7879528444) message] The system which generated this result transmitted reference range : 0.0 - 10.0 /100 WBCs. The refer ence range was not u sed to interpret th is result as normal/abnormal . NRBC x10^3 (test code <0.01 See_Comment [Auto mated = 4124939127) message] The s ystem which generated this result transmitted reference range : 10*3/?L. The reference range was not used to interpret this result as normal/abnormal . GRAN MAT (NEUT) % 69.1 % (test code = 770-8) IMM GRAN % (test code 2.20 % = 4962448271) LYMPH % (test code = 20.9 % 736-9) MONO % (test code = 5.8 % 5905-5) EOS % (test code = 1.0 % 713-8) BASO % (test code = 1.0 % 706-2) GRAN MAT x10^3(ANC) 6.51 10*3/uL 1.99-6.95 (test code = 2657097903) IMM GRAN x10^3 (test 0.21 10*3/uL 0-0.06 H code = 2643980925) LYMPH x10^3 (test code 1.97 10*3/uL 1.09-3.23 = 731-0) MONO x10^3 (test code 0.55 10*3/uL 0.36-1.02 = 742-7) EOS x10^3 (test code = 0.09 10*3/uL 0.06-0.53 711-2) BASO x10^3 (test code 0.09 10*3/uL 0.01-0.09 = 704-7) BASO STIPPLING (test Present A code = 703-9) BANDS (test code = Increased A 4109032243) TOXIC CHANGES (test Present A code = 803-7) Lab Interpretation Abnormal (test code = 72373-8) [facility] Metabolic Panel (NA, K, CL, CO2, GLUCOSE, BUN, CREATININE, CA)2020-08-22 11:12:00 Test Item Value Reference Range Interpretation Comments NA (test code = 135 mmol/L 135-145 7447942008) K (test code = 3.6 mmol/L 3.5-5 2713624400) CL (test code = 99 mmol/L 98-108 8028027479) CO2 TOTAL (test code = 31 mmol/L 23-31 1702637035) AGAP (test code = 2-16 4079095384) BUN (test code = 9 mg/dL 7-23 8432353794) GLUCOSE (test code = 198 mg/dL 70-110 H 4936062391) CREATININE (test code = 0.72 mg/dL 0.6-1.25 7265632223) CALCIUM (test code = 8.3 mg/dL 8.6-10.6 L 7029389362) eGFR Calculation mL/min/1.73m2 (Non-) (test code = 2319104582) eGFR Calculation mL/min/1.73m2 () (test code = 5682798824) JAMES (test code = JAMES) Association of [...] tests). Lab Interpretation Abnormal (test code = 58154-1) [facility] DistrictMagnesium Axton4214-00-46 11:12:00 Test Item Value Reference Range Interpretation Comments MAGNESIUM (test code = 1570557521) 2.0 mg/dL 1.7-2.4 Lab Interpretation (test code = Normal 82707-6) [facility] District[facility]id Panel (Total Cholesterol, Triglycerides, HDL) - [id number] 11:12:00 Test Item Value Reference Range Interpretation Comments CHOL (test code = 155 mg/dL 120-200 6487973699) HDL (test code = 42 mg/dL >40 2381918385) HDLC RATIO (test code = See_Comment [Au tomated message] 8348404027) The system Razmir generated this result transmit ronan reference range : <=5.0. The refe rence range was not u sed to interpret th is result as normal/abnormal . TRIG (test code = 186 mg/dL 30-170 H 3571504603) LDL CHOL (test code = 76 mg/dL See_Comment [Auto mated message] 30539-2) The system Razmir generated this result transmit ronan reference range : <=160. The refe rence range was not u sed to interpret th is result as normal/abnormal . VLDL (test code = 37 mg/dL 5-60 6128970680) Lab Interpretation (test Abnormal code = 08597-6) [facility] DistrictHEPATIC FUNCTION PANEL (66976) (ALB,T.PRO,BILI T,BU/BC,ALT,AST,ALK PHOS)2020-08-22 11:12:00 Test Item Value Reference Range Interpretation Comments TOTAL BILI (test code = 8551759700) 0.6 mg/dL 0.1-1.1 BILI UNCON (test code = 0998089479) 0.2 mg/dL 0.1-1.1 BILI CONJ (test code = 6736260570) 0.0 mg/dL 0-0.3 T PROTEIN (test code = 8189099959) 6.0 g/dL 6.3-8.2 L ALBUMIN (test code = 2343574722) 2.8 g/dL 3.5-5 L ALK PHOS (test code = 0006920795) 222 U/L 34-122 H ALTv (test code = 1742-6) 27 U/L 5-50 AST(SGOT) (test code = 9249987518) 30 U/L 13-40 Lab Interpretation (test code = Abnormal 06409-7) [facility] GLUCOSE (AUTOMATED)2020-08-22 10:11:00 Test Item Value Reference Range Interpretation Comments POCT GLU (test code = 8677028303) 196 mg/dL 70-110 H Lab Interpretation (test code = Abnormal 61989-2) [facility] GLUCOSE (AUTOMATED)2020-08-22 07:15:00 Test Item Value Reference Range Interpretation Comments POCT GLU (test code = 8314990155) 183 mg/dL 70-110 H Lab Interpretation (test code = Abnormal 36348-4) [facility] GLUCOSE (AUTOMATED)2020-08-22 02:30:00 Test Item Value Reference Range Interpretation Comments POCT GLU (test code = 5698115543) 295 mg/dL 70-110 H Lab Interpretation (test code = Abnormal 85027-9) [facility] GLUCOSE (AUTOMATED)2020-08-21 23:46:00 Test Item Value Reference Range Interpretation Comments POCT GLU (test code = 8881985845) 258 mg/dL 70-110 H Lab Interpretation (test code = Abnormal 50629-4) [facility] DistrictC-REACTIVE [id number] 18:50:00 Test Item Value Reference Range Interpretation Comments CRP (test code = 4097973787) 15.5 mg/dL <0.8 H Lab Interpretation (test code = Abnormal 07236-6) [facility] GLUCOSE (AUTOMATED)2020-08-21 18:21:00 Test Item Value Reference Range Interpretation Comments POCT GLU (test code = 6491472011) 297 mg/dL 70-110 H Lab Interpretation (test code = Abnormal 23932-7) [facility] DistrictETHANOL2020-11-09 16:24:00 Test Item Value Reference Range Interpretation Comments ALCOHOL (test code = <10 mg/dL 5172250301) JAMES (test code = Toxic Greater than or JAMES) equal to 80 mg/dL. NOTE: Whole blood values are approximately 10% to 15% lower than serum and plasma. [facility] ONLY - URINE DRUG (IMMUNOASSAY) - 4 ER [id number] 15:36:00 Test Item Value Reference Range Interpretation Comments AMPHET (test code = Negative Negative 8284733727) Cocaine Metabolite (test Negative Negative code = 6317137342) OPIATES (test code = Presumptive Positive Negative A 8520213542) THC (test code = Negative Negative 0527097521) JAMES (test code = JAMES) Urine Drug Cutoff Ranges Amphetamine: ? 1,000 ng/mLCocaine: ? 150 ng/mLOpiates: ? 300 ng/mLCannabinoids: ?50 ng/mL The results are to be used only for medical (i.e., treatment) purposes. Unconfirmed screening results must not be used for non-medical purposes (e.g., employment testing, legal testing). Lab Interpretation (test Abnormal code = 92735-2) [facility] ONLY - SYPHILIS [id number] 15:04:00 Test Item Value Reference Range Interpretation Comments Syphilis IgG/IgM (test Non-reactive Non-reactive code = 56336-8) JAMES (test code = JAMES) Non-reactive - No serologic evidence of T. pallidum infection. Cannot exclude incubating or early syphilis. Submit a second specimen in 2-4 weeks if syphilis is clinically suspected. Equivocal - Further testing to follow. Reactive - Further testing to follow. Lab Interpretation (test Normal code = 33670-3) [facility] DistrictUrinalysis2020-11-09 14:52:00 Test Item Value Reference Range Interpretation Comments APPEARANCE (test code = Clear Clear 5798520617) COLOR (test code = Yellow Yellow 1167734168) PH (test code = 4.8-8.0 6928980737) SP GRAVITY (test code = 1.003-1.030 8580095102) GLU U QUAL (test code = 500 mg/dL Normal A 6827297000) BLOOD (test code = Negative Negative 4815626355) KETONES (test code = 20 mg/dL Negative A 3399096037) PROTEIN (test code = Negative Negative 2887-8) UROBILIN (test code = Normal Normal 6462058961) BILIRUBIN (test code = Negative Negative 6789319331) NITRITE (test code = Negative Negative 4289725363) LEUK RYAN (test code = Negative Negative 4866549832) RBC/HPF (test code = <1 See_Comment [Autom ated message] 0478947567) The system Razmir generated this result transmit ronan reference range : 0 - 3 HPF. The refe rence range was not u sed to interpret th is result as normal/abnormal . WBC/HPF (test code = See_Comment [Autom ated message] 9023354540) The system Razmir generated this result transmit ronan reference range : 0 - 5 HPF. The refe rence range was not u sed to interpret th is result as normal/abnormal . BACTERIA (test code = Negative Negative 0376403220) MUCOUS (test code = Slight Negative LPF A 0435300266) Lab Interpretation (test Abnormal code = 67888-2) [facility] DistrictACTIVATED PARTIAL THRMPLAS [id number] 13:45:00 Test Item Value Reference Range Interpretation Comments APTT Patient (test code = See_Comment [ Automated message] 3173-2) The system whic h generated this result transmitted ref erence range: 26 - 36 Seconds. The re ference range was not u sed to interpret this result as normal/abnor mal. Lab Interpretation (test Normal code = 17173-2) [facility]PO[facility]2020-08-21 13:45:00 Test Item Value Reference Range Interpretation Comments POCT GLU (test code = 8509593819) 246 mg/dL 70-110 H Lab Interpretation (test code = Abnormal 46138-0) [facility] DistrictHIV 1/2 AG-AB WITH [id number] 12:32:00 Test Item Value Reference Range Interpretation Comments HIV Negative Negative Semi-quantitative (test code = 60014-8) JAMES (test code = Non-reactive for HIV-1 JAMES) antigen and HIV-1/HIV-2 antibodies. ?No laboratory evidence of HIV infection. ?Repeat in 2-4 weeks if acute HIV infection is suspected. [facility] DistrictCBC WITH [id number] 12:18:00 Test Item Value Reference Range Interpretation Comments WBC (test code = See_Comment [Automated 4990-2) message] The sy stem which generated this result transmitted reference range : 4.20 - 10.70 10*3/?L. The reference range was not used to interpret this result as normal/abnormal . RBC (test code = See_Comment [Automated 579-8) message] The sy stem which generated this [...] RDW-SD (test code = 44.4 fL 38.5-51.6 85238-3) RDW-CV (test code = 14.5 % 12.1-15.4 788-0) PLT (test code = See_Comment H [Automated 777-3) message] The sy stem which generated this result transmitted reference range : 150 - 328 10*3/ ?L. The reference r torito was not used to interpret this result as normal/abnormal . MPV (test code = 8.5 fL 9.8-13 L 23756-6) NRBC/100 WBC (test See_Comment [Automat ed code = 6937510141) message] The system which generated this result transmitted reference range : 0.0 - 10.0 /100 WBCs. The refer ence range was not u sed to interpret th is result as normal/abnormal . NRBC x10^3 (test code <0.01 See_Comment [Auto mated = 6815367668) message] The s ystem which generated this result transmitted reference range : 10*3/?L. The reference range was not used to interpret this result as normal/abnormal . GRAN MAT (NEUT) % 90.4 % (test code = 770-8) IMM GRAN % (test code 1.30 % = 5638313456) LYMPH % (test code = 7.1 % 736-9) MONO % (test code = 0.5 % 5905-5) EOS % (test code = 0.1 % 713-8) BASO % (test code = 0.6 % 706-2) GRAN MAT x10^3(ANC) 7.74 10*3/uL 1.99-6.95 H (test code = 2203629885) IMM GRAN x10^3 (test 0.11 10*3/uL 0-0.06 H code = 1701813891) LYMPH x10^3 (test code 0.61 10*3/uL 1.09-3.23 L = 731-0) MONO x10^3 (test code 0.04 10*3/uL 0.36-1.02 L = 742-7) EOS x10^3 (test code = <0.03 0.06-0.53 L 711-2) BASO x10^3 (test code 0.05 10*3/uL 0.01-0.09 = 704-7) POLYCHROMASIA (test 2+ See_Comment [Automa ronan code = 26962-9) message] The system which generated this result transmitted reference range : 2+. The referen ce range was not u sed to interpret th is result as normal/abnormal . BANDS (test code = Increased A 7541052875) Lab Interpretation Abnormal (test code = 63578-0) [facility] DistrictPROCALCITONIN2020-11-09 11:48:00 Test Item Value Reference Range Interpretation Comments Procalcitonin (test 0.36 ng/mL <0.07 H code = 3225991924) JAMES (test code = JAMES) INTERPRETATION OF [...] lung abscess/empyema. For further information please refer to:[email or web address] Lab Interpretation Abnormal (test code = 91346-8) [facility] DistrictLAIAATE [id number] 10:53:00 Test Item Value Reference Range Interpretation Comments LDH (test code = 9175821388) 351 U/L 300-600 Lab Interpretation (test code = Normal 61024-8) [facility] DistrictSEDIMENTATION [id number] 10:07:00 Test Item Value Reference Range Interpretation Comments ESR (test code = See_Comment H [Automated message] [id number]) The system Razmir generated this result transmitted ref erence range: 0 - 10 m m/HR. The reference r torito was not used to interpret this result as normal/abnor mal. Lab Interpretation (test Abnormal code = 72422-9) [facility]2020-08-21 09:45:00 Test Item Value Reference Range Interpretation Comments POCT GLU (test code = 0587049823) 287 mg/dL 70-110 H Lab Interpretation (test code = Abnormal 44415-0) [facility] Hemoglobin (A1C)2020-08-21 09:29:00 Test Item Value Reference Range Interpretation Comments HGB A1C (test code = 4548-4) 9.8 % 4-6 H Lab Interpretation (test code = Abnormal 17685-6) [facility] (ID NOW RAPID TESTING)2020-08-21 09:13:00 Test Item Value Reference Range Interpretation Comments SARS-CoV-2 Rapid ID NOW Not Detected Not Detected (test code = 26789-2) JAMES (test code = JAMES) ID NOW COVID-19 Assay is an isothermal nucleic acid amplification test intended for the qualitative detection of nucleic acid from SARS-CoV-2 viral RNA in nasopharyngeal (CREDIT REPRESENTATIVE) specimens. It is used under Emergency [...] indicated. Lab Interpretation Normal (test code = 66091-3) [facility] DistrictProth[facility] Time / [id number] 08:59:00 Test Item Value Reference Range Interpretation Comments PROTIME PATIENT (test See_Comment H [Auto mated message] code = 5964-2) The system Doctolib generated this result transmitted ref erence range: 10.1 - 1 2.6 Seconds. The reference range was not used to int erpret this result as normal/abnormal . INR (test code = 6301-6) Nor mal INR <1.1; Warfarin Therap eutic range 2.0 to 3. 0 or 2.5 to 3.5, dep ending upon the indica tions. Lab Interpretation (test Abnormal code = 39768-2) [facility]TT2020-11-09 08:59:00 Test Item Value Reference Range Interpretation Comments APTT Patient (test code = See_Comment [ Automated message] 3173-2) The system Razmir generated this result transmitted ref erence range: 26 - 36 Seconds. The re ference range was not u sed to interpret this result as normal/abnor mal. Lab Interpretation (test Normal code = 85956-4) [facility] (NA, K, CL, CO2, GLUCOSE, BUN, CREATININE, CA)2020-08-21 08:52:00 Test Item Value Reference Range Interpretation Comments NA (test code = 136 mmol/L 135-145 1653178434) K (test code = 4.3 mmol/L 3.5-5 7842511142) CL (test code = 104 mmol/L 98-108 7312833881) CO2 TOTAL (test code = 24 mmol/L 23-31 3106828699) AGAP (test code = 2-16 1425003866) BUN (test code = 8 mg/dL 7-23 5590433812) GLUCOSE (test code = 308 mg/dL 70-110 H 2944494088) CREATININE (test code = 0.72 mg/dL 0.6-1.25 2411236429) CALCIUM (test code = 7.8 mg/dL 8.6-10.6 L 2552494166) eGFR Calculation mL/min/1.73m2 (Non-) (test code = 9871087548) eGFR Calculation mL/min/1.73m2 () (test code = 4104267446) JAMES (test code = JAMES) Association of [...] tests). Lab Interpretation Abnormal (test code = 01840-5) [facility] District[facility]AT[facility] FUNCTION PANEL (07552) (ALB,T.PRO,BILI T,BU/BC,ALT,AST,ALK PHOS)2020-08-21 08:52:00 Test Item Value Reference Range Interpretation Comments TOTAL BILI (test code = 1687791806) 0.8 mg/dL 0.1-1.1 BILI UNCON (test code = 6521753954) 0.3 mg/dL 0.1-1.1 BILI CONJ (test code = 2037522345) 0.0 mg/dL 0-0.3 T PROTEIN (test code = 0698875626) 5.7 g/dL 6.3-8.2 L ALBUMIN (test code = 9534306027) 2.7 g/dL 3.5-5 L ALK PHOS (test code = 8467483681) 245 U/L 34-122 H ALTv (test code = 1742-6) 37 U/L 5-50 AST(SGOT) (test code = 7085241492) 43 U/L 13-40 H Lab Interpretation (test code = Abnormal 79787-7) [facility]
[2023-05-24] MEDS ORDERED: DIAZEPAM 5 MG TABLET ONE (03:36)
[2023-05-24] MEDS ORDERED: PROMETHAZINE INJ 25 MG/ML AMP ONE (03:36)
[2023-05-24] MEDS ORDERED: HYDROMORPHONE HCL 2 MG/ML inj ONE (03:37)
--- NOTE | 2023-05-24 03:38 | ER ---
Nurse's Notes [facility] Name: Kiel Ngo Age: 72 yrs Sex: Male : 1950 Arrival Date: 05/24/2023 Time: 02:59 Bed 8 Private MD: Diagnosis: Pain in right hip;Other chronic pain Presentation: 05/24 03:01 Chief complaint: Patient states: my right leg and back hurt. vc1 03:01 Coronavirus screen: Client denies travel out of the [place] in the last 14 days. At this vc1 time, the client does not indicate any symptoms associated with coronavirus-19. Ebola Screen: Patient negative for fever greater than or equal to 101.5 degrees Fahrenheit, and additional compatible Ebola Virus Disease symptoms Patient denies exposure to infectious person. Patient denies travel to an Ebola-affected area in the 21 days before illness onset. No symptoms or risks identified at this time. Initial Sepsis Screen: Does the patient meet any 2 criteria? No. Patient's initial sepsis screen is negative. Does the patient have a suspected source of infection? No. Patient's initial sepsis screen is negative. Risk Assessment: Do you want to hurt yourself or someone else? Patient reports no desire to harm self or others. Onset of symptoms was May 24, 2023. 03:01 Method Of Arrival: EMS: [facility] vc1 03:01 Acuity: JOZEF 5 vc1 Triage Assessment: 04:02 General: Appears in no apparent distress. uncomfortable, obese, Behavior is appropriate vc1 for age. Pain: Complains of pain in back and right upper thigh Pain does not radiate. Pain currently is 10 out of 10 on a pain scale. Quality of pain is described as sharp. EENT: No deficits noted. No signs and/or symptoms were reported regarding the EENT system. Neuro: Level of Consciousness is awake, alert, obeys commands, Oriented to person, place, time, situation, Appropriate for age. Cardiovascular: No deficits noted. Respiratory: Airway is patent Respiratory effort is even, unlabored, Respiratory pattern is regular, symmetrical. GI: No deficits noted. No signs and/or symptoms were reported involving the gastrointestinal system. : No deficits noted. No signs and/or symptoms were reported regarding the genitourinary system. Derm: No deficits noted. No signs and/or symptoms reported regarding the dermatologic system. Musculoskeletal: Reports pain in back and lateral aspect of right thigh. Historical: - Allergies: 03:01 Demerol; vc1 03:01 metformin; vc1 03:01 Morphine; vc1 - PMHx: 03:01 Atrial fibrillation; chronic back pain; Chronic right leg pain; neuropathy; vc1 - PSHx: 03:01 back sx; PANCREAS SX; R. Ankle SX; vc1 - Immunization history:: unkniwn. - Social history:: Smoking status: Patient denies any tobacco usage or history of. - Family history:: not pertinent. Screenin:[address] [facility] ED Fall Risk Assessment (Adult) History of falling in the last 3 months, vc1 including since admission No falls in past 3 months (0 pts) Confusion or Disorientation No (0 pts) Intoxicated or Sedated No (0 pts) Impaired Gait No (0 pts) Mobility Assist Device Used No (0 pt) Altered Elimination No (0 pt) Score/Fall Risk Level 0 - 2 = Low Risk Oriented to surroundings, Maintained a safe environment, Educated pt \T\ family on fall prevention, incl call for assistance when getting out of bed. Abuse screen: Denies threats or abuse. Nutritional screening: No deficits noted. Tuberculosis screening: No symptoms or risk factors identified. Vital Signs: 03:01 BP 130 / 69; Pulse 70; Resp 20; Pulse Ox 100% ; vc1 ED Course: 03:01 Patient arrived in ED. rv1 03:01 Arm band placed on right wrist. vc1 03:01 Patient has correct armband on for positive identification. Bed in low position. Call vc1 light in reach. Pulse ox on. NIBP on. 03:04 Kanwal Eaton RN is Primary Nurse. jw7 03:06 Stu Banerjee MD is Attending Physician. chetan 03:37 Madhu Francois DO is Referral Physician. chetan 04:01 Triage completed. vc1 04:06 No provider procedures requiring assistance completed. Patient did not have IV access vc1 during this emergency room visit. Administered Medications: 03:41 Drug: HYDROmorphone IM 2 mg Route: IM; Site: left deltoid; jw7 03:41 Drug: Promethazine IM 25 mg Route: IM; Site: right deltoid; jw7 03:41 Drug: Diazepam PO 5 mg Route: PO; jw7 Medication: 04:06 VIS not applicable for this client. vc1 Outcome: 03:37 Discharge ordered by . chetan 04:06 Discharged to home via ambulance. vc1 04:06 Condition: good 04:06 Discharge instructions given to patient, Instructed on discharge instructions, follow up and referral plans. Demonstrated understanding of instructions, follow-up care. 04:06 Patient left the ED. vc1 Signatures: Stu Banerjee MD MD cha Calcote, Vanessa RN RN vc1 Kanwal Eaton RN RN Linda Esqueda rv1 Corrections: (The following items were deleted from the chart) 03:08 03:05 Chief complaint: jose alfredo jw7
--- NOTE | 2023-05-24 03:38 | EDPHYS ---
Physician Documentation [facility] Name: Kiel Ngo Age: 72 yrs Sex: Male : 1950 Arrival Date: 05/24/2023 Time: 02:59 Bed 8 Private MD: ED Physician Stu Banerjee HPI: 05/24 03:19 This 72 yrs old Male presents to ER via Unassigned with complaints of Leg Pain, Back chetan Pain. 03:30 The patient presents with decreased range of motion, pain, that is chronic. The chetan complaints affect the right hip, lateral aspect of right thigh, right inner thigh, right upper thigh and right quadriceps. Context: The problem was sustained at an unknown site, resulted from CHRONIC , NOT NEW,HX OF. Onset: The symptoms/episode began/occurred 2 day(s) ago. Modifying factors: The symptoms are alleviated by nothing. the symptoms are aggravated by movement. Associated signs and symptoms: The patient has no apparent associated signs or symptoms. Treatment prior to arrival includes: no previous treatment. Severity of symptoms: At their worst the symptoms were moderate, in the emergency department the symptoms are unchanged. The patient has experienced similar episodes in the past, multiple times, chronically. Historical: - Allergies: 03:01 Demerol; vc1 03:01 metformin; vc1 03:01 Morphine; vc1 - PMHx: 03:01 Atrial fibrillation; chronic back pain; Chronic right leg pain; neuropathy; vc1 - PSHx: 03:01 back sx; PANCREAS SX; R. Ankle SX; vc1 - Immunization history:: unkniwn. - Social history:: Smoking status: Patient denies any tobacco usage or history of. - Family history:: not pertinent. ROS: 03:32 Constitutional: Negative for fever, chills, and weight loss, Eyes: Negative for injury, chetan pain, redness, and discharge, ENT: Negative for injury, pain, and discharge, Neck: Negative for injury, pain, and swelling, Cardiovascular: Negative for chest pain, palpitations, and edema, Respiratory: Negative for shortness of breath, cough, wheezing, and pleuritic chest pain, Abdomen/GI: Negative for abdominal pain, nausea, vomiting, diarrhea, and constipation, Back: Negative for injury and pain, : Negative for injury, bleeding, discharge, and swelling, Skin: Negative for injury, rash, and discoloration, Neuro: Negative for headache, weakness, numbness, tingling, and seizure. 03:32 MS/extremity: Positive for decreased range of motion, pain, tenderness, of the right hip. Exam: 03:32 Constitutional: This is a well developed, well nourished patient who is awake, alert, chetan and in no acute distress. Head/Face: Normocephalic, atraumatic. Eyes: Pupils equal round and reactive to light, extra-ocular motions intact. Lids and lashes normal. Conjunctiva and sclera are non-icteric and not injected. Cornea within normal limits. Periorbital areas with no swelling, redness, or edema. ENT: Nares patent. No nasal discharge, no septal abnormalities noted. Tympanic membranes are normal and external auditory canals are clear. Oropharynx with no redness, swelling, or masses, exudates, or evidence of obstruction, uvula midline. Mucous membranes moist. Neck: Trachea midline, no thyromegaly or masses palpated, and no cervical lymphadenopathy. Supple, full range of motion without nuchal rigidity, or vertebral point tenderness. No Meningismus. Chest/axilla: Normal chest wall appearance and motion. Nontender with no deformity. No lesions are appreciated. Cardiovascular: Regular rate and rhythm with a normal S1 and S2. No gallops, murmurs, or rubs. Normal PMI, no JVD. No pulse deficits. Respiratory: Lungs have equal breath sounds bilaterally, clear to auscultation and percussion. No rales, rhonchi or wheezes noted. No increased work of breathing, no retractions or nasal flaring. Abdomen/GI: Soft, non-tender, with normal bowel sounds. No distension or tympany. No guarding or rebound. No evidence of tenderness throughout. Back: No spinal tenderness. No costovertebral tenderness. Full range of motion. Skin: Warm, dry with normal turgor. Normal color with no rashes, no lesions, and no evidence of cellulitis. Neuro: Awake and alert, GCS 15, oriented to person, place, time, and situation. Cranial nerves II-XII grossly intact. Motor strength 5/5 in all extremities. Sensory grossly intact. Cerebellar exam normal. Normal gait. Psych: Awake, alert, with orientation to person, place and time. Behavior, mood, and affect are within normal limits. 03:32 Musculoskeletal/extremity: Extremities: grossly normal except: decreased ROM, pain, ROM: limited active range of motion due to pain, limited passive range of motion due to pain, in the right leg, Circulation is intact in all extremities. Sensation intact. Compartment Syndrome exam of affected extremity: is normal. Joints: All joints are normal except limited range of motion, pain at rest, painful range of motion, tenderness, Weight bearing: is unable to bear weight, DVT Exam: no swelling, negative Homans' sign noted on exam, no appreciated bluish discoloration, no erythema, no increased warmth, pain, tenderness, Calves: are non-tender, have equal circumference. Vital Signs: 03:01 BP 130 / 69; Pulse 70; Resp 20; Pulse Ox 100% ; vc1 MDM: 03:06 Patient medically screened. chetan 03:34 Differential diagnosis: closed fracture, contusion, tendonitis. Data reviewed: vital chetan signs, nurses notes, EMS record. Consideration of Admission/Observation Escalation of care including admission/observation considered. I considered the following discharge prescriptions or medication management in the emergency department Medications were administered in the Emergency Department. See MAR. Test considered but Not performed: Labs: NO LABS. Care significantly affected by the following chronic conditions: Hypertension, Obesity, CHRONIC PAIN. Counseling: I had a detailed discussion with the patient and/or guardian regarding: the historical points, exam findings, and any diagnostic results supporting the discharge/admit diagnosis, radiology results, the need for outpatient follow up, for definitive care, a family practitioner, a orthopedic surgeon. 05/24 03:18 [place] [facility]; Complete Time: 03:42 chetan Administered Medications: 03:41 Drug: HYDROmorphone IM 2 mg Route: IM; Site: left deltoid; jw7 03:41 Drug: Promethazine IM 25 mg Route: IM; Site: right deltoid; jw7 03:41 Drug: Diazepam PO 5 mg Route: PO; jw7 Disposition Summary: 05/24/23 03:37 Discharge Ordered Location: Home chetan Problem: new chetan Symptoms: have improved chetan Condition: Stable chetan Diagnosis - Pain in right hip chetan - Other chronic pain chetan Followup: chetan - With: Private Physician - When: 2 - 3 days - Reason: Recheck today's complaints, Continuance of care, Re-evaluation by your physician Followup: chetan - With: Madhu Francois DO - When: 2 - 3 days - Reason: Recheck today's complaints, Re-evaluation by your physician Discharge Instructions: - Discharge Summary Sheet chetan - Joint Pain chetan - Arthritis chetan - Chronic Pain, Adult chetan - Musculoskeletal Pain chetan - Chronic Back Pain, Uogn-te-Biae chetan - Hip Pain chetan - Arthritis, Objp-jn-Nysz [facility] Forms: - Medication Reconciliation Form [facility] - Thank You Letter chetan - Antibiotic Education chetan - Prescription Opioid Use chetan - Patient Portal Instructions [facility] - Leadership Thank You Letter [facility] Signatures: Stu Banerjee MD MD cha Calcote, Vanessa RN RN vc1 Kanwal Eaton RN RN jw7
[2023-05-24 04:11] VITALS: BP 130/69; O2SAT 100
== END 2023-05-24 04:06 | disposition home or self-care (01) ==
LOC: ER 02:59
DX: G89.29 Other chronic pain (principal); Z88.5 Allergy status to narcotic agent; Z88.8 Allergy status to other drugs, medicaments and biological substances
CPT/HCPCS: 96372; 99284; J2550; J1170

== ENCOUNTER 2023-07-15 17:34 | Emergency (ER) | payer OTHER ==
--- OUTSIDE RECORDS SUMMARY | 2023-07-15 17:43 | XMS REPORT | Continuity of Care Document ---
:1950 Author Organization [facility] t Address [address] [facility] [address] [place] [address] Care Team Providers Name Role Phone CALVIN WORLEY Primary Care Physician Unavailable [id number] Attending Clinician Unavailable KELLY WASHINGTON Attending Clinician Unavailable Zion Mathew Anavella Attending Clinician Unava ilable SWEETIE STOUT Attending Clinician Unavailable Girish VILLAREAL, Sweetie Attending Clinician Calvin Worley MD Attending Clinician Ruchi Peters RN Attending Clinician Paco Lacey DO Attending Clinician Hunter VILLAREAL, Vika Fernando Attending Clinician Alvarez Rowe MD Attending Clinician ALVAREZ ROWE Attending Clinician Unavailable PACO LACEY Attending Clinician Unavailable Doctor Unassigned, [place] Attending Clinician Unavailable Wilder VILLAREAL, Angi K.H. Attending Clinician Jl Mccabe MD Attending Clinician Kelly Washington MD Attending Clinician [phone] Lisandra Gallardo MD, Mukul Anand Attending Clinician [id number] Admitting Clinician Unavailable MUKUL GALLARDO Admitting Clinician Unavailable Angle Mathew, Anav Admitting Clinician Unavailable Hunter VILLAREAL, Vika Frenando Admitting Clinician VIAK HARRISON Admitting Clinician Unavailable Nicci VILLAREAL, Mukul Anand Admitting Clinician Payers Payer Name Policy Type Policy Number Effective Date Expiration Date Tony doe MEDICARE PART A [id number] 2007 \\T\\ B 00:00:00 [employer] INDEMNITY [id number] 2016 00:00:00 MCR MCR [id number] Problems Condition Condition Condition Status Onset Resolution [...] ents Source Name Type Date Date Clinician 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 Propensi Active Rash 2019- Univers ty to [...] Exposure to Not sure University of SARS-CoV-2 [place] [facility] (event) Branch History of Chews Tobacco University of tobacco use [place] [facility] History SDOH 2020-11-17 2020-11-17 5 University o f Financial 00:00:00 00:00:00 [place] [facility] History SDOH Food 2020-11-17 2020-11-17 1 Univers ity of Worry 00:00:00 00:00:00 [place] [facility] History SDOH Food 2020-11-17 2020-11-17 1 Univers ity of Scarcity 00:00:00 00:00:00 [place] [facility] History SDOH 2020-11-17 2020-11-17 1 University o f Transport Med 00:00:00 00:00:00 [place] [facility] History SDAZ 2020-11-17 2020-11-17 1 University o f Transport Non-Med 00:00:00 00:00:[address] [facility] edical Branch Education 2020-11-16 2020-11-16 21 [place] of 00:00:00 00:00:00 [facility] Branch Alcohol intake 2020-11-16 2020-11-16 Ex-drinker [place] of 00:00:00 00:00:00 (finding) [facility] Tobacco use and 2020-08-21 2020-08-21 Former user Universi ty of exposure 00:00:00 00:00:00 [facility] Tobacco Comment 2020-08-21 2020-08-21 quit 10 years Univer sity of 00:00:00 00:00:00 ago, started in [place] Med ical 2nd year of Branch college (~40 years) Alcohol Comment 2020-08-21 2020-08-21 Used to have 2-3 Uni versity of 00:00:00 00:00:00 six-packs of [place] Medica l beer daily x 20 Branch years, quit [address] [facility] 2020-08-21 2020-08-21 99 University o f Alcohol Frequency 00:00:00 00:00:00 [place] M edical Branch History SDAZ 2020-08-21 2020-08-21 99 University o f Alcohol Std 00:00:00 00:00:00 [place] [facility] Drinks Branch History SDAZ 2020-08-21 2020-08-21 99 University o f Alcohol Binge 00:00:00 00:00:00 [facility] al [place] Sex Assigned At [birth year] Universit y of 00:00:00 00:00:00 [facility] Smoking Status Start Date Stop Date Source Never smoker [facility] Medications Ordered Filled Start [...] at [place] 18 bedtime. Medical Branch HYDROmorpho 0 Yes [...] 0845, Until Discontinu ed, Routine amLODIPine Yes [id number] 10mg Take 1 Univers 10 mg 3-07 tablet by ity of tablet 00:00: mouth [place] 00 daily. Medical Branch clotrimazol Yes [id number] Apply to Univers e 1 % 3-07 face/ears, ity of topical 00:00: armpits, [place] cream 00 pannus and Medical back/any Branch other rash twice a day fluocinonid 0 Yes [id number] Apply to Univers e 0.05 % 3-07 scalp ity of solution 00:00: twice a 00 day Medical Branch triamcinolo 0 Yes [id number] Apply to Univers ne 3-07 back, ity of acetonide 00:00: armpits [place] 0.1 % cream 00 and other Med ical affected Branch areas twice daily, please mix with clotrimazo le hydrOXYzine Yes [id number] 10mg Take 1 Univers 10 mg 3-07 tablet by ity of tablet 00:00: mouth 2 (two) Medical times Branch daily. amLODIPine Yes [id number] 10mg Take 1 Univers 10 mg 3-07 tablet by ity of tablet 00:00: mouth [place] 00 daily. Medical Branch clotrimazol Yes [id number] Apply to Univers e 1 % 3-07 face/ears, ity of topical 00:00: armpits, [place] cream 00 pannus and Medical back/any Branch other rash twice a day fluocinonid 0 Yes [id number] Apply to Univers e 0.05 % 3-07 scalp ity of solution 00:00: twice a day Medical Branch triamcinolo Yes [id number] Apply to Univers ne 3-07 back, ity of acetonide 00:00: armpits [place] 0.1 % cream 00 and other Med ical affected Branch areas twice daily, please mix with clotrimazo le hydrOXYzine Yes [id number] 10mg Take 1 Univers 10 mg 3-07 tablet by ity of tablet 00:00: mouth 2 00 (two) Medical times Branch daily. amLODIPine 2020-0 Yes [id number] 10mg Take 1 Univers 10 mg 3-07 tablet by ity of tablet 00:00: mouth [place] 00 daily. Medical Branch clotrimazol 2020-0 Yes [id number] Apply to Univers e 1 % 3-07 face/ears, ity of topical 00:00: armpits, [place] cream 00 pannus and Medical back/any Branch other rash twice a day fluocinonid 2020-0 Yes [id number] Apply to Univers e 0.05 % 3-07 scalp ity of solution 00:00: twice a day Medical Branch triamcinolo 2020-0 Yes [id number] Apply to Univers ne 3-07 back, ity of acetonide 00:00: armpits [place] 0.1 % cream 00 and other Med ical affected Branch areas twice daily, please mix with clotrimazo le hydrOXYzine Yes [id number] 10mg Take 1 Univers 10 mg 3-07 tablet by ity of tablet 00:00: mouth 2 [place] 00 (two) Medical times Branch daily. amLODIPine Yes [id number] 10mg Take 1 Univers 10 mg 3-07 tablet by ity of tablet 00:00: mouth [place] 00 daily. Medical Branch clotrimazol Yes [id number] Apply to Univers e 1 % 3-07 face/ears, ity of topical 00:00: armpits, [place] cream 00 pannus and Medical back/any Branch other rash twice a day fluocinonid 2020- Yes [id number] Apply to Univers e 0.05 % 3-07 scalp ity of solution 00:00: twice a Medical Branch triamcinolo 0 Yes [id number] Apply to Univers ne 3-07 back, ity of acetonide 00:00: armpits [place] 0.1 % cream 00 and other Med ical affected Branch areas twice daily, please mix with clotrimazo le hydrOXYzine Yes [id number] 10mg Take 1 Univers 10 mg -07 tablet by ity of tablet 00:00: mouth 2 [place] (two) Medical times Branch daily. cephALEXin 2020-2020- No [id number] 500mg Take 1 Univers 500 mg -04 14- capsule by ity of capsule 00:00: 05:59 mouth [place] 00 :00 every 6 Medical (six) Branch hours for 3 days. cephALEXin 2020-0 2020- No [id number] 500mg Take 1 Univers 500 mg 3-04 14- capsule by ity of capsule 00:00: 05:59 mouth [place] 00 :00 every 6 Medical (six) Branch hours for 3 days. hydrOXYzine 2020-0 2020- No [id number] 10mg Take 1 Univers 10 mg 3-04 14-07 tablet by ity of tablet 00:00: 00:00 mouth 2 [place] 00 :00 (two) Medical times [place] daily. morpHINE Yes 4mg 4 mg, Slow [...] ity of mg 11:15: 10:58 ONCE, 1 [place] 00 :00 dose, Sat [facility] 12/16/20 at Branch 0515, Routine lactated 2020- No 1000mL at 125 Univ ers ringers IV 12-16 03-06 mL/hr, ity of infusion 01:00: 00:16 1,000 mL, [place] 1,000 mL 00 :00 IV Medical Infusion, [place] ONCE, 1 dose, 12/15/20 at 1900, Routine iohexol 2020- No 100mL 100 mL, Unive rs (OMNIPAQUE 12-15-05 Intravenou it y of 350 22:24: 22:24 s, ONCE, 1 [place] BULK-100 00 :00 dose, Fri Medica l mL) 12/15/20 at [place] injection 1645, 100 mL Routine cephALEXin 2020- [...] [facility] ers (NS) bolus 12-15-05 mL/hr, 500 it y of infusion 16:00: 15:26 mL, IV [place] 500 mL 00 :00 Piggyback, Medical ONCE, 1 Branch dose, Fri12/15/20 at 1000, STAT HYDROmorpho Yes 4mg 4 mg, [facility] rs ne 05 Oral, BID, ity of (DILAUDID) 15:30: First dose [place] tablet 4 mg 00 (after Medica l last Branch modificati on) on Fri12/15/20 at 0930, Until Discontinu ed, Routine amLODIPine 2020- No [id number] 10mg Take 1 Univers 10 mg 12-15-07 tablet by ity of tablet 00:00: 00:00 mouth [place] 00 :00 daily. Medical Branch HYDROmorpho 2020- No 1mg 1 mg, [facility] ers ne 12-14 03-05 Oral, ity of (DILAUDID) 17:35: 15:18 Q6HPRN, [place] tablet 1 mg 30 :06 Starting Medi [facility] 12/14/20 Branch at 1135, Until Fri12/15/20 at 0918, Routine, Pain (scale 7-10) hydrOXYzine Yes 10mg 10 mg, [facility] ers (ATARAX) 3-04 Oral, BID, ity o f tablet 10 17:30: First dose [place] mg 00 on [facility] 12/14/20 at Branch 1130, Until Discontinu ed, Routine lisinopriL Yes 5mg 5 mg, Univer s (PRINIVIL,Z 3-04 Oral, ity of ESTRIL) 17:30: DAILY, [place] tablet 5 mg 00 First dose Me dical on [facility] Branch 3/4/21 at 1130, Until Discontinu ed, Routine triamcinolo 2020- No [id number] Apply to Univers ne 12-14 back, ity of acetonide 00:00: 00:00 armpits [place] 0.1 % cream 00 :00 and other Med ical affected Branch areas twice daily, please mix with clotrimazo le clotrimazol 2020- No [id number] Apply to Univers e 1 % 12-14 face/ears, ity of topical 00:00: 00:00 armpits, [place] cream 00 :00 pannus and Medical back/any Branch other rash twice a day fluocinonid 2020- No [id number] Apply to Univers e 0.05 % 12-14 scalp ity of solution 00:00: 00:00 twice a [place] 00 :00 day Medical Branch hydrOXYzine 2020- No [id number] 10mg Take 1 Univers 10 mg 12-14 [...] ity of (PF)) 04:55: 05:44 ONCE, 1 [place] injection 4 00 :00 dose, [facility] ical mg 12/12/20 at Branch 2300, Routine traMADoL 2020- No 50mg 50 mg, Univer s (ULTRAM) 12-13 03-03 Oral, ity of tablet 50 03:45: 03:34 ONCE, 1 [place] mg 00 :00 dose, [facility] 12/12/20 at Branch 2145, Routine insulin Yes 15U 15 Units, [facility] rs glargine 12-12 Subcutaneo ity o f (LANTUS 15:00: us, DAILY, [place] U-100) 00 First dose Medical injection on [facility] 15 Units 12/12/20 at 0900, Until Discontinu [...] 03:00: First dose [place] mg 00 [facility] 12/11/20 at Branch 2100, [...] Therapy: 7 days Sliding Yes Subcutaneo [facility] ers Scale 12-11 us, TID ity of Insulin - 18:00: MEALS+HS, [place] Lispro 00 First dose Medical (HumaLOG) + on Fri Branch Fsbg 12/11/20 at Testing 1200, Until Discontinu ed, Routine insulin Yes 5U 5 Units, [facility] lispro 12-11 Subcutaneo ity of (human) 18:00: us, TID [place] (HumaLOG 00 MEALS, Medical U-100) First dose Branch injection 5 on Mon Units 12/11/20 at 1200, Until Discontinu ed Polyethylen Yes 17g 17 g, [facility] rs e Glycol 12-11 Oral, ity of 3350 17:47: [id number], [place] (MIRALAX) 05 Starting Medica l powder [...] 0630, STAT piperacilli No 3.375g 3.375 g, [facility] n-tazobacta 12-11 IV ity of m (ZOSYN) 12:00: 17:48 Piggyback, [place] injection 00 :24 Q6H, First Medi jose c 3.375 g dose on Branch Fri12/11/20 at 0600, Until Discontinu ed, KAHLIL
Re ason for Anti-Infec tive: Empiric Therapy for Suspected Infection< br>Empiric Therapy Site: Skin / Soft tissue
Duration of therapy: 72 hours sennosides- Yes [id number] 1{tbl} Take 1 [facility] docusate 2-09 tablet by ity of sodium 00:00: mouth 2 [place] 8.6-50 mg 00 (two) Medical per tablet times Branch daily. hydrocortis Yes [id number] Apply to [facility] one 2.5 % 11-21 affected ity of cream 00:00: area(s) 2 [place] 00 (two) Medical times Branch daily. blood sugar Yes [id number] Use to [facility] diagnostic 2- check ity of (FREESTYLE 00:00: blood [place] LITE 00 glucose Medical STRIPS) 4-5 times Branch strip daily. Polyethylen 2020- Yes [id number] 17g Take 1 Univers e Glycol 2-09 Packet by ity of 3350 17 00:00: mouth [place] gram powder 00 every 24 Medi jose c (twenty-fo Branch ur) hours as needed for Constipati on. sennosides- Yes [id number] 1{tbl} Take 1 Univers docusate 2-09 tablet by ity of sodium 00:00: mouth 2 [place] 8.6-50 mg 00 (two) Medical per tablet times Branch daily. hydrocortis 2020- Yes [id number] Apply to Univers one 2.5 % 2-09 affected ity of cream 00:00: area(s) 2 [place] 00 (two) Medical times Branch daily. blood sugar Yes [id number] Use to Univers diagnostic 2-09 check ity of (FREESTYLE 00:00: blood [place] LITE 00 glucose Medical STRIPS) 4-5 times Branch strip daily. Polyethylen Yes [id number] 17g Take 1 Univers e Glycol 2-09 Packet by ity of 3350 17 00:00: mouth [place] gram powder 00 every 24 Medi jose c (twenty-fo Branch ur) hours as needed for Constipati on. sennosides- Yes [id number] 1{tbl} Take 1 Univers docusate 2-09 tablet by ity of sodium 00:00: mouth 2 [place] 8.6-50 mg 00 (two) Medical per tablet times Branch daily. hydrocortis 2020- Yes [id number] Apply to Univers one 2.5 % 2-09 affected ity of cream 00:00: area(s) 2 [place] 00 (two) Medical times Branch daily. blood sugar 2020-0 Yes [id number] Use to Univers diagnostic 209 check ity of (FREESTYLE 00:00: blood [place] LITE 00 glucose Medical STRIPS) 4-5 times Branch strip daily. Polyethylen 2020-0 Yes [id number] 17g Take 1 Univers e Glycol 2-09 Packet by ity of 3350 17 00:00: mouth [place] gram powder 00 every 24 Medi jose c (twenty-fo Branch ur) hours as needed for Constipati on. sennosides- 2020- Yes [id number] 1{tbl} Take 1 Univers docusate 2-09 tablet by ity of sodium 00:00: mouth 2 [place] 8.6-50 mg 00 (two) Medical per tablet times Branch daily. hydrocortis Yes [id number] Apply to [facility] one 2.5 % 11-21 affected ity of cream 00:00: area(s) 2 [place] 00 (two) Medical times Branch daily. blood sugar Yes [id number] Use to [facility] diagnostic 11-21 check ity of (FREESTYLE 00:00: blood [place] LITE 00 glucose Medical STRIPS) 4-5 times Branch strip daily. Polyethylen Yes [id number] 17g Take 1 Univers e Glycol 11-21 Packet by ity of 3350 17 00:00: mouth [place] gram powder 00 every 24 Medi jose c (twenty-fo Branch ur) hours as needed for Constipati on. Insulin 2020- No [id number] 15U inject 15 Univers Glargine 11-21 Units ity of (LANTUS 00:00: 05:59 under the [employer] SOLOSTAR 00 :00 skin every Medic al U-100 morning Branch INSULIN) for 30 100 unit/mL days. (3 mL) injection venlafaxine 2020- No [id number] 150mg Take 1 Univers XR 150 mg 11-21 capsule by ity of 24 hr 00:00: 05:59 mouth 3 [place] capsule 00 :00 (three) Medical times Branch daily for 30 days. Insulin 2020- No [id number] 15U inject 15 Univers Glargine 11-21-12 Units ity of (LANTUS 00:00: 05:59 under the [employer] SOLOSTAR 00 :00 skin every Medic al U-100 morning Branch INSULIN) for 30 100 unit/mL days. (3 mL) injection venlafaxine 2020- No [id number] 150mg Take 1 Univers XR 150 mg 11-21 capsule by ity of 24 hr 00:00: 05:59 mouth 3 [place] capsule 00 :00 (three) Medical times Branch daily for 30 days. triamcinolo 2020- No [id number] Apply to [facility] ne 11-21-04 area(s) 2 ity of acetonide 00:00: 00:00 (two) [place] 0.1 % cream 00 :00 times Medical daily. Branch cephALEXin 2020- No [id number] 1000mg Take 2 Univers 500 mg 11-21 capsules ity of capsule 00:00: 00:00 by mouth 3 [place] 00 :00 (three) Medical times Branch daily. doxycycline 2020- No [id number] 100mg Take 1 Univers hyclate 100 11-21 capsule by i ty of mg capsule 00:00: 00:00 mouth [place] 00 :00 every 12 Medical (twelve) Branch hours. lactobacill 2020- No [id number] 1{tbl} Take 1 Univers us 11-21 tablet by ity of acidophilus 00:00: 00:00 mouth 2 [place] 25 million 00 :00 (two) Medical cell -100 times Branch mg captab daily. bisacodyL 2020- No [id number] 10mg Insert 1 Univers 10 mg 11-21 Suppositor ity of suppository 00:00: 00:00 y into [place] 00 :00 rectum at Medical bedtime as Branch needed for Constipati on. ALPRAZolam 2020- No [id number] .25mg Take 1 Univers (XANAX) 11-21 tablet by ity of 0.25 mg 00:00: 00:00 mouth 2 [place] tablet 00 :00 (two) Medical times Branch daily. hydrOXYzine 2020- No [id number] 20mg Take 2 Univers 10 mg 11-21 [...] 3 ity of 6 mg 01:13: (three) [place] capsule 36 times Medical daily. Branch Insulin 2019-10 Yes 15U inject 15 Unive rs Glargine 1-12 Units ity of (LANTUS 01:13: under the [place] SOLOSTAR) 36 skin. Medical 100 unit/mL Branch (3 mL) InPn INSULIN 2019-10 Yes 5U inject 5 Univer s ASPART 1-12 Units ity of (NOVOLOG 01:13: under the [facility] FLEXPEN SC) 36 skin. Medical Branch ALPRAZolam [...] Units ity of (NOVOLOG 01:13: under the [facility] FLEXPEN SC) 36 skin. Medical Branch ALPRAZolam [...] of (NOVOLOG 01:13: under the [facility] s FLEXPEN SC) 36 skin. Medical Branch ALPRAZolam 2019-10 Yes .25mg Take 0.25 U nivers (XANAX) 1-12 mg by ity of 0.25 mg 01:13: mouth 2 [place] tablet 36 (two) Medical times Branch daily. HYDROXYZINE 2019-10 2020- No 25mg Take 25 mg Univers PAMOATE 1-11 11-11 by mouth ity of ORAL 20:04: 00:00 daily. [place] 34 :00 Medical Branch hydrocortis 2019-10 Yes [id number] Apply to Univers one 2.5 % 1-11 affected ity of cream 00:00: area(s) 2 [place] 00 (two) Medical times Branch daily. hydrOXYzine 2019-10 Yes [id number] 20mg Take 2 Univers 10 mg 1-11 tablets by ity of tablet 00:00: mouth [place] 00 every 8 Medical (eight) Branch hours as needed for Itching or Anxiety. Polyethylen 2019-10 Yes [id number] 17g Take 1 Univers e Glycol 1-11 Packet by ity of 3350 17 00:00: mouth [place] gram powder 00 every 24 Medi jose c (twenty-fo Branch ur) hours as needed for Constipati on. hydrocortis 2019-10 Yes [id number] Apply to Univers one 2.5 % 1-11 affected ity of cream 00:00: area(s) 2 [place] 00 (two) Medical times Branch daily. hydrOXYzine 2019- Yes [id number] 20mg Take 2 Univers 10 mg 1-11 tablets by ity of tablet 00:00: mouth [place] 00 every 8 Medical (eight) Branch hours as needed for Itching or Anxiety. Polyethylen 2019- Yes [id number] 17g Take 1 Univers e Glycol 1-11 Packet by ity of 3350 17 00:00: mouth [place] gram powder 00 every 24 Medi jose c (twenty-fo Branch ur) hours as needed for Constipati on. hydrocortis 2019- Yes [id number] Apply to Univers one 2.5 % 1-11 affected ity of cream 00:00: area(s) 2 [place] (two) Medical times Branch daily. hydrOXYzine 2019- Yes [id number] 20mg Take 2 Univers 10 mg 1-11 tablets by ity of tablet 00:00: mouth [place] 00 every 8 Medical (eight) Branch hours as needed for Itching or Anxiety. Polyethylen 2019- Yes [id number] 17g Take 1 Univers e Glycol 1-11 Packet by ity of 3350 17 00:00: mouth [place] gram powder 00 every 24 Medi jose c (twenty-fo Branch ur) hours as needed for Constipati on. hydrocortis 2019-10 Yes [id number] Apply to Univers one 2.5 % 1-11 affected ity of cream 00:00: area(s) 2 [place] (two) Medical times Branch daily. hydrOXYzine 2019- Yes [id number] 20mg Take 2 Univers 10 mg 1-11 tablets by ity of tablet 00:00: mouth [place] 00 every 8 Medical (eight) Branch hours as needed for Itching or Anxiety. Polyethylen 2019- Yes [id number] 17g Take 1 Univers e Glycol 1-11 Packet by ity of 3350 17 00:00: mouth [place] gram powder 00 every 24 Medi jose c (twenty-fo Branch ur) hours as needed for Constipati on. hydrocortis 2019-10 Yes [id number] Apply to Univers one 2.5 % 1-11 affected ity of cream 00:00: area(s) 2 [place] 00 (two) Medical times Branch daily. hydrOXYzine 2019-10 Yes [id number] 20mg Take 2 Univers 10 mg 1-11 tablets by ity of tablet 00:00: mouth [place] 00 every 8 Medical (eight) Branch hours as needed for Itching or Anxiety. Polyethylen 2020- Yes [id number] 17g Take 1 Univers e Glycol 1-11 Packet by ity of 3350 17 00:00: mouth [place] gram powder 00 every 24 Medi jose c (twenty-fo Branch ur) hours as needed for Constipati on. hydrocortis 2019- Yes [id number] Apply to Univers one 2.5 % 1-11 affected ity of cream 00:00: area(s) 2 [place] 00 (two) Medical times Branch daily. hydrOXYzine 2019- Yes [id number] 20mg Take 2 Univers 10 mg 1-11 tablets by ity of tablet 00:00: mouth [place] 00 every 8 Medical (eight) Branch hours as needed for Itching or Anxiety. Polyethylen 2019- Yes [id number] 17g Take 1 Univers e Glycol 1-11 Packet by ity of 3350 17 00:00: mouth [place] gram powder 00 every 24 Medi jose c (twenty-fo Branch ur) hours as needed for Constipati on. hydrocortis 2019-10 Yes [id number] Apply to Univers one 2.5 % 1-11 affected ity of cream 00:00: area(s) 2 [place] 00 (two) Medical times Branch daily. hydrOXYzine 2019-10 Yes [id number] 20mg Take 2 Univers 10 mg 1-11 tablets by ity of tablet 00:00: mouth [place] 00 every 8 Medical (eight) Branch hours as needed for Itching or Anxiety. Polyethylen 2019- Yes [id number] 17g Take 1 Univers e Glycol 1-11 Packet by ity of 3350 17 00:00: mouth [place] gram powder 00 every 24 Medi jose c (twenty-fo Branch ur) hours as needed for Constipati on. triamcinolo 2019- 2020- No [id number] Apply to [facility] 10-23 area(s) 2 ity of acetonide 00:00: 05:59 (two) [place] 0.1 % cream 00 :00 times Medical daily for Branch 14 days. triamcinolo 2019- 2020- No [id number] Apply to [facility] 10-23 area(s) 2 ity of acetonide 00:00: 05:59 (two) [place] 0.1 % cream 00 :00 times Medical daily for Branch 14 days. triamcinolo 2019- 2020- No [id number] Apply to [facility] ne 10-23 area(s) 2 ity of acetonide [...] [place] tablet 1 mg 53 Starting [facility] 08/22/20 at 0907, Until Discontinu ed, Routine, Pain (scale 7-10) hydrocortis 2019-10 Yes Topical Uni vers one 2.5 % 1-10 (Apply To ity o f cream 02:00: Affected [place] 00 Areas), Medical BID, First Branch dose on [facility] 08/21/20 at 2000, Until Discontinu ed, Routine triamcinolo 2019-10 Yes Topical, Un toi ne 1-10 BID, First ity of acetonide 02:00: dose on [place] (TRIDERM) [facility] Medical 0.1 % cream 08/21/20 at Br anch 2000, Until Discontinu ed, Routine hydrOXYzine 2019-10 Yes 20mg 20 mg, Univ ers (ATARAX) 09 Oral, ity of tablet 20 17:39: Q8HPRN, [place] mg 12 Starting [facility] 08/21/20 at 1139, Until Discontinu ed, Routine, Itching, Anxiety sennosides- 2019-10 Yes 1{tbl} 1 tablet, Univers docusate 09 Oral, ity of sodium 15:00: DAILY, [place] (SENOKOT-S) 00 First dose Me dical 8.6-50 mg on [facility] per tablet 08/21/20 at 1 tablet 0900, Until Discontinu ed, Routine hydrocortis 2019-10 2020- No Topical Un toi one 1 % 10-21- (Apply To ity of cream 15:00: 22:54 Affected [place] 00 :48 Areas), Medical DAILY, Branch First dose on [facility] 08/21/20 at 0900, Until Discontinu ed, Routine venlafaxine 2019-10 Yes 150mg 150 mg, Un toi XR (EFFEXOR 09 Oral, TID, it y of XR) 24 hr 14:00: First dose [place] capsule 150 00 on [facility] Medica l mg 08/21/20 [...] 25 59 :43 Starting Medica l mg [facility] 08/21/20 at 0656, Until [facility] 08/21/20 at 1139, Routine, Itching, Mild Rash, Congestion /Allergies , alternate with hydroxyzin e hydrOXYzine 2019-10- No 10mg 10 mg, Uni vers (ATARAX) 10-21 Oral, ity of tablet 10 10:20: 12:57 Q6HPRN, [place] mg 22 :12 Starting Medical [facility] 08/21/20 at 0420, Until [facility] 08/21/20 at 0657, Routine, [...] 1 ity o f 09:30: 09:14 dose, [facility] 00 :00 08/21/20 at [facility] 0330, Branch Routine Polyethylen 2019-10 Yes 17g 17 g, Unive rs e Glycol 10-21 Oral, ity of 3350 08:29: [id number], [place] (MIRALAX) 09 Starting Medica l powder 17 g [facility] 08/21/20 at 0229, Until Discontinu ed, [...] 1-3) sotalol 2019-10- No Take by [facility] (BETAPACE) 10-21 mouth ity of 240 [...] blood 2021-08-22 13:00:00 84 mm[Hg] Unive rsity [facility] Heart rate 2021-08-22 13:00:00 103 /min [facility] Respiratory rate 2021-08-22 13:00:00 18 /min [facility] Oxygen saturation in 2021-08-22 13:00:00 95 /min [facility] Arterial blood by [facility] Pulse oximetry Branch Body temperature 2021-08-22 12:22:00 36.72 [facility] Systolic blood 2020-12-17 18:35:00 139 mm[Hg] Univer sity of [facility] Diastolic blood 2020-12-17 18:35:00 87 mm[Hg] Unive rsity of [facility] Heart rate 2020-12-17 18:35:00 110 /min [facility] Body temperature 2020-12-17 18:35:00 37.72 [facility] Respiratory rate 2020-12-17 18:35:00 18 /min [facility] Oxygen saturation in 2020-12-17 18:35:00 93 /min University of Arterial blood by [facility] jose c Pulse oximetry Branch Body height 2020-12-12 08:21:00 180.3 cm [facility] Body weight 2020-12-12 08:21:00 103.42 kg [facility] [place] [facility] BMI 2020-12-12 08:21:00 31.80 kg/m2 [facility] Systolic blood 2020-12-17 [...] 180.3 cm [facility] Body weight 2020-12-12 08:21:00 103.42 [...] [facility] Pulse oximetry Branch Body weight 2020-08-21 07:20:00 104.962 kg [facility] [place] [facility] BMI 2020-08-21 07:20:00 32.27 kg/m2 [facility] [place] [facility] Systolic blood 2020-08-23 19:27:00 140 mm[Hg] Univer sity of pressure [facility] Diastolic blood 2020-08-23 19:27:00 79 mm[Hg] [facility] Heart rate 2020-08-23 19:27:00 99 /min [facility] Body temperature 2020-08-23 19:27:00 36 [place] Respiratory rate 2020-08-23 19:27:00 18 /min Univ [facility] Oxygen saturation in 2020-08-23 19:27:00 93 /min [facility] Arterial blood by [facility] Pulse oximetry [place] Body weight 2020-08-21 07:20:00 104.962 kg [facility] BMI 2020-08-21 07:20:00 32.27 kg/m2 [facility] Procedures Procedure Date / Time Performing Clinician Source Performed POCT GLUCOSE (AUTOMATED) 2020-12-17 15:42:00 Favio Harrisonal G Uni [facility] BASIC METABOLIC PANEL 2020-12-17 10:45:00 Paul Bean [facility] (NA, K, CL, CO2, GLUCOSE, [facility] BUN, CREATININE, CA) CBC WITH DIFF 2020-12-17 10:45:00 Paul Bean [facility] POCT GLUCOSE (AUTOMATED) 2020-12-17 02:36:00 Vika Harrison G Uni [facility] XR TIBIA FIBULA 2 VW LEFT 2020-12-16 23:38:00 [facility] PO[facility] GLUCOSE (AUTOMATED) 2020-12-16 23:20:00 Harrison, Premal [facility] POCT GLUCOSE (AUTOMATED) 2020-12-16 20:10:00 Hunter Premal [facility] POCT GLUCOSE (AUTOMATED) 2020-12-16 14:43:00 Hunter Premal [facility] BASIC METABOLIC PANEL 2020-12-16 13:51:00 Paul Bean [facility] (NA, K, CL, CO2, GLUCOSE, [facility] BUN, CREATININE, CA) CBC WITH DIFF 2020-12-16 13:51:00 Paul Bean [facility] POCT GLUCOSE (AUTOMATED) 2020-12-16 04:00:00 Harrison, Premal G Uni versity of [facility] POCT GLUCOSE (AUTOMATED) 2020-12-16 00:14:00 Harrison, Premal G Uni versity of [facility] CT CHEST PULMONARY 2020-12-15 22:29:38 Paul Bean [facility] ANGIOGRAM [facility] POCT GLUCOSE (AUTOMATED) 2020-12-15 19:26:00 Harrison, Premal G Uni versity of [facility] POCT GLUCOSE (AUTOMATED) 2020-12-15 15:13:00 Harrison, Premal [facility] HB ECG ROUTINE & RHYTHM 2020-12-15 14:25:27 Cailin Romo [facility] MAGNESIUM 2020-12-15 12:01:00 Paul Bean Sivakumar [facility] BASIC METABOLIC PANEL 2020-12-15 12:01:00 Paul Bean [facility] (NA, K, CL, CO2, GLUCOSE, [facility] BUN, CREATININE, CA) CBC WITH DIFF 2020-12-15 12:01:00 Paul Bean Sivakumar [facility] POCT GLUCOSE (AUTOMATED) 2020-12-15 03:57:00 Harrison, Premal G Uni versity of [facility] POCT GLUCOSE (AUTOMATED) 2020-12-14 23:31:00 Harrison, Premal G Uni versity of [facility] POCT GLUCOSE (AUTOMATED) 2020-12-14 19:08:00 Harrison, Premal G Uni versity of [facility] POCT GLUCOSE (AUTOMATED) 2020-12-14 15:11:00 Harrison, Premal G Uni versity of [facility] POCT GLUCOSE (AUTOMATED) 2020-12-14 02:36:00 Harrison, Premal G Uni versity of [facility] POCT GLUCOSE (AUTOMATED) 2020-12-13 23:32:00 Harrison, Premal G Uni versity of [facility] POCT GLUCOSE (AUTOMATED) 2020-12-13 18:08:00 Harrison, Premal G Uni versity of [facility] BASIC METABOLIC PANEL 2020-12-13 15:39:00 Paul Bean [facility] (NA, K, CL, CO2, GLUCOSE, [facility] BUN, CREATININE, CA) CBC WITH DIFF 2020-12-13 15:39:00 Paul Bean [facility] POCT GLUCOSE (AUTOMATED) 2020-12-13 14:06:00 Harrison, Premal G Uni versity of [facility] POCT GLUCOSE (AUTOMATED) 2020-12-13 03:07:00 Harrison, Premal G Uni versity of [facility] POCT GLUCOSE (AUTOMATED) 2020-12-12 23:52:00 Harrison, Premal G Uni versity of [facility] POCT GLUCOSE (AUTOMATED) 2020-12-12 20:28:00 Harrison, Premal G Uni versity of [facility] POCT GLUCOSE (AUTOMATED) 2020-12-12 19:14:00 Harrison, Premal G Uni versity of [facility] POCT GLUCOSE (AUTOMATED) 2020-12-12 14:33:00 Harrison, Premal G Uni versity of [facility] MAGNESIUM 2020-12-12 08:58:00 Paul Bean [facility] BASIC METABOLIC PANEL 2020-12-12 08:58:00 Paul Bean [facility] (NA, K, CL, CO2, GLUCOSE, [facility] BUN, CREATININE, CA) CBC WITH DIFF 2020-12-12 08:58:00 aPul Bean [facility] US ABDOMEN LIMITED 2020-12-12 06:32:[address] [facility] POCT GLUCOSE (AUTOMATED) 2020-12-12 03:40:00 Harrison, Premal G Uni versity of [facility] POCT GLUCOSE (AUTOMATED) 2020-12-12 00:06:00 Harrison, Premal G Uni [facility] [place] [facility] XR HIPS 3 VW LEFT 2020-12-11 20:20:00 Paul Bean Sivakumar [facility] HB ECG ROUTINE & RHYTHM 2020-12-11 20:04:06 Demetrius [facility] VITAMIN B6, PLASMA 2020-12-11 19:17:[address] [facility] POCT GLUCOSE (AUTOMATED) 2020-12-11 19:06:00 Vika Harrison [facility] CREATINE KINASE 2020-12-11 18:22:00 Parvez [facility] VITAMIN B12, LEVEL 2020-12-11 18:22:00 Vikas [facility] FOLATE 2020-12-11 18:22:00 Vikas [facility] THYROID STIMULATING 2020-12-11 18:22:00 Demetrius [facility] HORMONE [facility] PROCALCITONIN 2020-12-11 18:22:00 Vikas [facility] VITAMIN B1 (THIAMINE), 2020-12-11 18:22:00 [facility] CT HEAD WO CONTRAST 2020-12-11 14:07:35 Sweetie Stout [facility] URINALYSIS 2020-12-11 13:44:00 Singer [facility] URINE CULTURE 2020-12-11 13:44:00 Singer [facility] COVID-19 (ID NOW RAPID 2020-12-11 12:31:00 Paco Lacey [facility] TESTING) Medical Branch LAB ONLY COVID 2020-12-11 12:31:00 Singer [facility] INTERPRETATION [facility] XR CHEST 1 VW 2020-12-11 12:07:24 Singer [facility] BLOOD CULTURE SCREEN 2020-12-11 12:02:00 Paco Lacey [facility] MAGNESIUM 2020-12-11 12:02:00 [facility] FERRITIN SERUM 2020-12-11 12:02:00 Paul Bean [facility] COMP. METABOLIC PANEL 2020-12-11 12:02:00 Singer [facility] ([id number]) Medical [place] CBC WITH DIFF 2020-12-11 12:02:00 Singer [facility] LACTIC ACID WHOLE BLOOD 2020-12-11 12:02:00 Singer Paco [facility] BLOOD CULTURE SCREEN 2020-12-11 11:42:00 Singer Paco [facility] EMERGENCY SERVICES 2020-12-11 06:01:00 Doctor Unassnadya, [facility] AGREEMENTS AND [place] [facility] [place] AUTHORIZATIONS HOSPITAL ADMISSION 2020-12-11 06:01:00 Doctor Unaowen, [facility] Name Medical [place] HOME HEALTH - OTHER 2020-11-11 06:01:00 Doctor Tabitha [facility] [place] [facility] [place] HOME HE[facility] - OTHER 2020-10-30 06:01:00 Doctor Unaowen [facility] Name Medical [place] EXTERNAL PROVIDER RECORDS 2020-09-01 06:01:00 Doctor Tabitha, [facility] Name [facility] POCT GLUCOSE (AUTOMATED) 2020-08-23 18:09:00 Kelly Washington [facility] POCT GLUCOSE (AUTOMATED) 2020-08-23 14:14:00 Kelly Washington [facility] MAGNESIUM 2020-08-23 11:18:[address] [facility] BASIC METABOLIC PANEL 2020-08-23 11:18:00 [place] [facility] (NA, K, CL, CO2, GLUCOSE, Medica l Branch BUN, CREATININE, CA) CBC WITH DIFF 2020-08-23 11:18:[address] [place] [facility] POCT GLUCOSE (AUTOMATED) 2020-08-23 10:21:00 Kelly Washington [facility] POCT GLUCOSE (AUTOMATED) 2020-08-23 05:55:00 Kelly Washington [facility] POCT GLUCOSE (AUTOMATED) 2020-08-23 03:00:00 Kelly Washington Jada versity of [facility] POCT GLUCOSE (AUTOMATED) 2020-08-22 23:38:00 Kelly Washington Jada versity of [facility] POCT GLUCOSE (AUTOMATED) 2020-08-22 19:04:00 Kelly Washington Jada versity of [facility] POCT GLUCOSE (AUTOMATED) 2020-08-22 13:49:00 Kelly Washington Jada versity [facility] MAGNESIUM 2020-08-22 10:10:00 [place], [facility] HEPATIC FUNCTION PANEL 2020-08-22 10:10:00 Aguila Melchor [facility] ([id number]) (ALB,T.PRO,BILI Medical Branch T,BU/BC,ALT,AST,ALK PHOS) BASIC METABOLIC PANEL 2020-08-22 10:10:00 [place] [facility] (NA, K, CL, CO2, GLUCOSE, Medica l Branch BUN, CREATININE, CA) LIPID PANEL ([id number])(TOTAL 2020-08-22 10:10:00 Ramya, [facility] CHOLESTEROL, Medical [place] TRIGLYCERIDES, HDL) CBC WITH DIFF 2020-08-22 10:10:00 [place], [facility] POCT GLUCOSE (AUTOMATED) 2020-08-22 10:10:00 [facility] ([facility]) 2020-08-22 07:13:00 Kelly Washington versity of [facility] POCT GLUCOSE (AUTOMATED) 2020-08-22 02:24:00 Kelly Washington versity of [facility] POCT GLUCOSE (AUTOMATED) 2020-08-21 23:40:00 Kelly Washington versity of [facility] POCT GLUCOSE (AUTOMATED) 2020-08-21 18:10:00 Kelly [place] versity of [facility] POCT GLUCOSE (AUTOMATED) 2020-08-21 13:39:00 Kelly Washington [facility] ETHANOL 2020-08-21 12:35:00 [facility] 2020-08-21 12:35:00 Padmini [facility] GALV ONLY - SYPHILIS 2020-08-21 12:35:00 Padmini [facility] IGG/IGM [facility] LACTATE DEHYDROGENASE 2020-08-21 10:09:00 Ramya, [facility] GALV/CLC ONLY - URINE 2020-08-21 10:09:00 Richie [facility] DRUG (IMMUNOASSAY) - 4 ER Medica l Branch PANEL URINALYSIS 2020-08-21 10:09:00 [place], [facility] URINE CULTURE 2020-08-21 10:09:00 Ramya, [facility] PROCALCITONIN 2020-08-21 10:09:00 [place], [facility] POCT GLUCOSE (AUTOMATED) 2020-08-21 09:41:00 Kelly Washington [facility] PROTHROMBIN TIME / INR 2020-08-21 08:32:00 [place], [facility] ACTIVATED PARTIAL 2020-08-21 08:32:00 [place], [facility] C-REACTIVE PROTEIN 2020-08-21 08:31:00 [place], [facility] HEPATIC FUNCTION PANEL 2020-08-21 08:31:00 [place], [facility] ([id number]) (ALB,T.PRO,BILI Medical Branch T,BU/BC,ALT,AST,ALK PHOS) BASIC METABOLIC PANEL 2020-08-21 08:31:00 Ramya, [facility] (NA, K, CL, CO2, GLUCOSE, Medica l Branch BUN, CREATININE, CA) SEDIMENTATION RATE 2020-08-21 08:31:00 Ramya, [facility] CBC WITH DIFF 2020-08-21 08:31:00 [place], [facility] GLYCOSYLATED HEMOGLOBIN 2020-08-21 08:31:00 Ramya, [facility] (A1C) Medical [place] HIV 1/2 AG-AB WITH REFLEX 2020-08-21 08:31:00 [facility] (ID NOW RAPID 2020-08-21 08:20:00 Haily Bui [facility] TESTING) Medical Branch LAB ONLY COVID 2020-08-21 08:20:00 [place] [facility] [place] INTERPRETATION [facility] Branch Encounters Start End Encounter Admission Attending Care Care Encounter Source Date/Time Date/Time Type Type Clinicians Facility Department ID 2022-11-13 Outpatient 3 [id number] ENCPL REF [id number] [facility] 11:39:58 0201 Health Rehabil itation Peariftikhar dang 2020-08-21 Inpatient U [place], IDTONG KVNG [id number] Univers 01:07:00 KELLY cantu [facility] 2022-11-14 2022-11-28 Inpatient 3 Izzy-[facility] ENCPL DELVIS [id number] [facility] 20:40:00 13:29:00 shaggy 0202 [facility] Peariftikhar d 2021-08-22 2021-08-22 Emergency X [facility] ERT [id number] Univers 06:21:00 08:02:00 SWEETIE cantu [facility] 2021-08-22 2021-08-22 [facility] [id number] Univers 06:21:00 08:02:00 Sweetie LOTT [id number] i ty of [place] 4.2.7.2.686 [facility] s VERNON [id number] [facility] 084 Branch 2020-12-28 2020-12-28 Telephone [facility] 1.2.840.114 [id number] Univers 00:00:00 00:00:00 Calvin WILLIAM [id number] it y of CARE 4.2.7.2.686 [id number] [facility] d[facility] 220 Branch 2020-12-28 2020-12-28 [facility] 1.2.840.114 [id number] 00:00:00 00:00:00 Calvin WILLIAM [id number] CARE 4.2.7.2.686 [facility] [id number] 2020-12-19 2020-12-19 Transition Tuan Peters 1.2.840.114 [id number] Univers 00:00:00 00:00:00 of Care Ruchi Braswell [id number] it y of [place] [id number] [facility] 403 Branch 2020-12-19 2020-12-19 Transition Tuan Peters 1.2.840.114 [id number] 00:00:00 00:00:00 of Care Ruchi Braswell [id number] [place] 4.2.7.2.686 [id number] 2020-12-11 2020-12-17 [facility] Paco Lacey 1.2.840.1 14 [id number] Univers 05:11:00 16:00:00 Encounter HarrisonFaviovik Amaya 350.1.13.10 ity of [facility] 4.2.7.2.686 [place] [id number] [facility] 096 Branch 2020-12-11 2020-12-17 Inpatient X [facility] [id number] Univers 05:11:00 16:00:00 ity of [facility] 2020-12-11 2020-12-17 [facility] Paco Lacey 1.2.840.1 14 [id number] 05:11:00 16:00:00 Encounter Vika Harrison Monique [id number] [facility] 4.2.7.2.686 [id number] 2020-11-16 2020-11-16 Emergency X [facility] ERT [id number] Univers 09:31:00 09:31:00 PACO cantu of [facility] 2020-11-11 2020-11-11 Orders Doctor CUI 1.2.840.114 [id number] Univers 00:00:00 00:00:00 Only Unassigned, MONIQUE 350.1.13.10 ity of [place] [facility] 4.2.7.2.686 Jeff as [id number] [address] 2020-11-11 2020-11-11 Orders Doctor BASILIA 1.2.840.114 [id number] 00:00:00 00:00:00 Only Unassigned, MONIQUE 350.1.13.10 [place] [facility] 4.2.7.2.686 [id number] [facility] 2020-11-07 2020-11-07 Telephone [facility] [id number] [facility] 00:00:00 00:00:00 Sendsiobhan Lott 350.1.13.10 [place]y [place] Profess[place] [id number] [address] 2020-11-07 2020-11-07 Telephone [facility] [id number] 00:00:00 00:00:00 Angi Lott 350.1.13.10 [place] 4.2.7.2.686 Professio [id number] [address] 2020-10-30 2020-10-30 Orders Doctor BASILIA 1.2.840.114 [id number] [facility] 00:00:00 00:00:00 Only Unassigned, MONIQUE 350.1.13.10 ity of [place] [facility] 4.2.7.2.686 Jeff as [id number] [address] 2020-10-30 2020-10-30 Orders Doctor BASILIA 1.2.840.114 [id number] 00:00:00 00:00:00 Only Unassigned, MONIQUE 350.1.13.10 [place] [facility] 4.2.7.2.686 [id number] [facility] 2020-09-26 2020-09-26 Telephone [facility] 1.2.840.114 [id number] [facility] 00:00:00 00:00:00 [facility] 350.1.13.10 i ty of CLIN[place] [id number] [address] 2020-09-26 2020-09-26 Telephone [facility] 1.2.840.114 [id number] 00:00:00 00:00:00 [facility] 350.1.13.10 CLINICS 4.2.7.2.686 [id number] 2020-09-01 2020-09-01 Orders Doctor BASILIA 1.2.840.114 [id number] Univers 00:00:00 00:00:00 Only Unassigned, MONIQUE 350.1.13.10 ity of [place] [facility] 4.2.7.2.686 Jeff as [id number] [facility] 009 Branch 2020-09-01 2020-09-01 Orders Doctor BASILIA 1.2.840.114 [id number] 00:00:00 00:00:00 Only Unassigned, MONIQUE 350.1.13.10 [place] [facility] 4.2.7.2.686 [id number] 2020-08-25 2020-08-25 Transition Tuan Peters 1.2.840.114 [id number] Univers 00:00:00 00:00:00 of Care Ruchi Braswell 350.1.13.10 it y of [place] [id number] [facility] 403 Branch 2020-08-25 2020-08-25 Transition Tuan Peters 1.2.840.114 [id number] 00:00:00 00:00:00 of Care Ruchi Braswell 350.1.13.10 [place] 4.2.7.2.686 [id number] 2020-08-21 2020-08-23 [facility] 1. 2.840.114 [id number] [facility] 01:07:00 18:35:00 Encounter Mukul Gallardoy 350.1.13. 10 ity of [place] [facility] 4.2.7.2.686 Jeff as [phone] [facility] 095 Branch 2020-08-21 2020-08-23 [facility] Ayleen 1.2.840.114 [id number] 01:07:00 18:35:00 Encounter Kelly Monique 350.1.13.10 [facility] 4.2.7.2.686 [id number] Results Test Description Test Time Test Comments Results Result Comments Source POCT GLUCOSE (AUTOMATED) 2020-12-17 15:43:35 Test Item Value Reference Range Interpretation Comme nts POCT GLU (test code = 6619887976) 129 mg/dL 70-110 H Lab Interpretation (test code = 73344-7) Abnormal [facility] METABOLIC PANEL (NA, K, CL, CO2, GLUCOSE, BUN, CREATININE, CA)2020-12-17 11:45:07 Test Item Value Reference Range Interpretation Comments NA (test code = 137 mmol/L 135-145 4482256114) K (test code = 3.5 mmol/L 3.5-5.0 4110415470) CL (test code = 103 mmol/L 98-108 3500861555) CO2 TOTAL (test code = 26 mmol/L 23-31 6854943760) AGAP (test code = 2-16 0631217681) BUN (test code = 11 mg/dL 7-23 2484073073) GLUCOSE (test code = 175 mg/dL 70-110 H 9233056195) CREATININE (test code = 0.62 mg/dL 0.60-1.25 4700767555) CALCIUM (test code = 9.0 mg/dL 8.6-10.6 8939480134) eGFR Calculation mL/min/1.73m2 (Non-) (test code = 3814602354) eGFR Calculation mL/min/1.73m2 () (test code = 2802199440) JAMES (test code = JAMES) Association of [...] tests). Lab Interpretation Abnormal (test code = 93227-7) [facility] WITH [id number] 11:07:27 Test Item Value Reference Range Interpretation [...] RDW-SD (test code = 45.2 fL 38.5-51.6 51636-5) RDW-CV (test code = 16.9 % 12.1-15.4 H 788-0) PLT (test code = See_Comment H [Automated 777-3) message] The sy stem which generated this result transmitted reference range : 150 - 328 10*3/ ?L. The reference r torito was not used to interpret this result as normal/abnormal . MPV (test code = 8.1 fL 9.8-13.0 L 64978-1) NRBC/100 WBC (test See_Comment [Automat ed code = 2608693354) message] The system which generated this result transmitted reference range : 0.0 - 10.0 /100 WBCs. The refer ence range was not u sed to interpret th is result as normal/abnormal . NRBC x10^3 (test code <0.01 See_Comment [Auto mated = 9258952630) message] The s ystem which generated this result transmitted reference range : 10*3/?L. The reference range was not used to interpret this result as normal/abnormal . GRAN MAT (NEUT) % 72.8 % (test code = 770-8) IMM GRAN % (test code 0.60 % = 7400126553) LYMPH % (test code = 18.4 % 736-9) MONO % (test code = 5.7 % 5905-5) EOS % (test code = 1.8 % 713-8) BASO % (test code = 0.7 % 706-2) GRAN MAT x10^3(ANC) 8.23 10*3/uL 1.99-6.95 H (test code = 8323736325) IMM GRAN x10^3 (test 0.07 10*3/uL 0.00-0.06 H code = 3531278885) LYMPH x10^3 (test code 2.08 10*3/uL 1.09-3.23 = 731-0) MONO x10^3 (test code 0.65 10*3/uL 0.36-1.02 = 742-7) EOS x10^3 (test code = 0.20 10*3/uL 0.06-0.53 711-2) BASO x10^3 (test code 0.08 10*3/uL 0.01-0.09 = 704-7) Lab Interpretation Abnormal (test code = 24488-2) [facility] GLUCOSE (AUTOMATED)2020-12-17 06:03:38 Test Item Value Reference Range Interpretation Comments POCT GLU (test code = 9947060189) 75 mg/dL 70-110 Lab Interpretation (test code = Normal 89017-6) [facility] [id number] 00:01:00 Test Item Value Reference Range Interpretation Comments VIT B6 (test code = 13.1 nmol/L 20.0-125.0 L INTERPRE TIVE 28361-0) INFORMATION: Vi tamin B6 (Pyridoxal 5-Phosphate) Pyridoxal 5'-phosphate me asured in a specimen collected follo wing an 8-hour or overnight fast accurately clara cates vitamin B6 nutritional sta tus. Non-fasting spe cimen concentration reflects recent vitamin intake. This test was develo ped and its perform ance characteristics determined by [facility]. I t has not been cleare d or approved by the [place] Food and Drug Administration. This test was perfor med in a CLIA certifie d laboratory and is intended for cl inical purposes.Perfor med By: [address] [place] [address] [id number] Director: Namrata Klein MD Lab Interpretation Abnormal (test code = 38161-7) [facility] T[facility] FIBUL[facility] 2 VW [id number] 23:57:09 Tricompartmental knee joint osteoarthrosis.XR TIBIA FIBULA 2 VW LEFT INDICATION: Left lower extremity pain from knee down to ankle COMPARISON: None FINDINGS: Moderate to severe tricompartmental knee joint osteoarthrosis. Diffusemuscle atrophy and osteopenia. No acute fracture or dislocation. [facility], Radiant Results Inft User - 12/16/2020 5:58 PM CSTXR TIBIA FIBULA 2 VW LEFTINDICATION: Left lower extremity pain from knee down to ankle COMPARISON: NoneFINDINGS:Moderate to severe tricompartmental knee joint osteoarthrosis. Diffusemuscle atrophy and osteopenia. No acute fracture or dislocation.IMPRESSIONTricompartmental knee joint osteoarthrosis.[facility] GLUCOSE (AUTOMATED) 2020-12-16 23:27:00 Test Item Value Reference Range Interpretation Comments POCT GLU (test code = 2625630654) 114 mg/dL 70-110 H Lab Interpretation (test code = Abnormal 53288-6) [facility] GLUCOSE (AUTOMATED)2020-12-16 20:12:00 Test Item Value Reference Range Interpretation Comments POCT GLU (test code = 8341840511) 105 mg/dL 70-110 Lab Interpretation (test code = Normal 72735-1) [facility]2020-12-16 14:44:00 Test Item Value Reference Range Interpretation Comments POCT GLU (test code = 7199214285) 153 mg/dL 70-110 H Lab Interpretation (test code = Abnormal 63091-4) [facility] METABOLIC PANEL (NA, K, CL, CO2, GLUCOSE, BUN, CREATININE, CA)2020-12-16 14:23:00 Test Item Value Reference Range Interpretation Comments NA (test code = 138 mmol/L 135-145 9598235728) K (test code = 3.4 mmol/L 3.5-5.0 L 8657015451) CL (test code = 100 mmol/L 98-108 0351473795) CO2 TOTAL (test code = 31 mmol/L 23-31 1291542704) AGAP (test code = 2-16 4048955626) BUN (test code = 11 mg/dL 7-23 7746865847) GLUCOSE (test code = 162 mg/dL 70-110 H 0990687667) CREATININE (test code = 0.64 mg/dL 0.60-1.25 6087467756) CALCIUM (test code = 8.9 mg/dL 8.6-10.6 7496716092) eGFR Calculation mL/min/1.73m2 (Non-) (test code = 3987721685) eGFR Calculation mL/min/1.73m2 () (test code = 0706701104) JAMES (test code = JAMES) Association of [...] tests). Lab Interpretation Abnormal (test code = 19294-4) [facility] WITH [id number] 14:05:00 Test Item Value Reference Range Interpretation Comments WBC (test code = See_Comment H [Automated 7490-2) message] The sy stem which generated this [...] RDW-SD (test code = 45.4 fL 38.5-51.6 16866-5) RDW-CV (test code = 17.0 % 12.1-15.4 H 788-0) PLT (test code = See_Comment H [Automated 777-3) message] The sy stem which generated this result transmitted reference range : 150 - 328 10*3/ ?L. The reference r torito was not used to interpret this result as normal/abnormal . MPV (test code = 8.0 fL 9.8-13.0 L 39526-4) NRBC/100 WBC (test See_Comment [Automat ed code = 4963982064) message] The system which generated this result transmitted reference range : 0.0 - 10.0 /100 WBCs. The refer ence range was not u sed to interpret th is result as normal/abnormal . NRBC x10^3 (test code <0.01 See_Comment [Auto mated = 1653111088) message] The s ystem which generated this result transmitted reference range : 10*3/?L. The reference range was not used to interpret this result as normal/abnormal . GRAN MAT (NEUT) % 70.0 % (test code = 770-8) IMM GRAN % (test code 0.70 % = 4472109555) LYMPH % (test code = 20.5 % 736-9) MONO % (test code = 7.1 % 5905-5) EOS % (test code = 1.0 % 713-8) BASO % (test code = 0.7 % 706-2) GRAN MAT x10^3(ANC) 9.44 10*3/uL 1.99-6.95 H (test code = 5460172906) IMM GRAN x10^3 (test 0.09 10*3/uL 0.00-0.06 H code = 1261315248) LYMPH x10^3 (test code 2.76 10*3/uL 1.09-3.23 = 731-0) MONO x10^3 (test code 0.96 10*3/uL 0.36-1.02 = 742-7) EOS x10^3 (test code = 0.13 10*3/uL 0.06-0.53 711-2) BASO x10^3 (test code 0.10 10*3/uL 0.01-0.09 H = 704-7) Lab Interpretation Abnormal (test code = 91106-3) [facility] - [facility] # [id number] 13:01:00 Test Item Value Reference Range Interpretation Comments Blood Culture-Aerobic No organisms No growth Previo us (test code = 39415-0) isolated prelim inary verified result was Culture In Progress on 12/11/2020 at 100 1 CSTPrevious preliminary verified result was No growth a t 24 hours on 12/12/2020 at 070 1 CSTPrevious preliminary verified result was No growth a t 48 hours on 12/13/2020 at 070 1 CSTPrevious preliminary verified result was No growth a t 72 hours on 12/14/2020 at 070 1 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 OPERATOR Blood No organisms No growth Previous Culture-Anaerobic isolated preliminar y (test code = 04517-1) verifi ed result was Culture In Progress on 12/11/2020 at 100 1 CSTPrevious preliminary verified result was No growth a t 24 hours on 12/12/2020 at 070 1 CSTPrevious preliminary verified result was No growth a t 48 hours on 12/13/2020 at 070 1 CSTPrevious preliminary verified result was No growth a t 72 hours on 12/14/2020 at 070 1 FLEXO OPERATOR Lab Interpretation Normal (test code = 67063-6) [facility] # [id number] 13:01:00 Test Item Value Reference Range Interpretation Comments Blood Culture-Aerobic No organisms No growth Previo us (test code = 82059-0) isolated prelim inary verified result was Culture In Progress on 12/11/2020 at 100 1 CSTPrevious preliminary verified result was No growth a t 24 hours on 12/12/2020 at 070 1 CSTPrevious preliminary verified result was No growth a t 48 hours on 12/13/2020 at 070 1 CSTPrevious preliminary verified result was No growth a t 72 hours on 12/14/2020 at 070 1 FLEXO OPERATOR Blood No organisms No growth Previous Culture-Anaerobic isolated preliminar y (test code = 47926-3) verifi ed result was Culture In Progress on 12/11/2020 at 100 1 CSTPrevious preliminary verified result was No growth a t 24 hours on 12/12/2020 at 070 1 CSTPrevious preliminary verified result was No growth a t 48 hours on 12/13/2020 at 070 1 CSTPrevious preliminary verified result was No growth a t 72 hours on 12/14/2020 at 070 1 FLEXO OPERATOR Lab Interpretation Normal (test code = 80797-2) [facility] GLUCOSE (AUTOMATED)2020-12-16 04:01:00 Test Item Value Reference Range Interpretation Comments POCT GLU (test code = 8125221152) 156 mg/dL 70-110 H Lab Interpretation (test code = Abnormal 14636-5) [facility] GLUCOSE (AUTOMATED)2020-12-16 00:24:00 Test Item Value Reference Range Interpretation Comments POCT GLU (test code = 5692893727) 115 mg/dL 70-110 H Lab Interpretation (test code = Abnormal 13424-4) [facility] CHEST PULMONARY [id number] 23:34:55No pulmonary emboli. No interval change in [...] stableappearance of intra and extrahepatic biliary ductal dilatation.[facility] GLUCOSE (AUTOMATED)2020-12-15 19:28:00 Test Item Value Reference Range Interpretation Comments POCT GLU (test code = 0397630115) 140 mg/dL 70-110 H Lab Interpretation (test code = Abnormal 32107-1) [facility]2021-[facility] 15:26:00 Test Item Value Reference Range Interpretation Comments MAGNESIUM (test code = 2434345691) 2.2 mg/dL 1.7-2.4 Lab Interpretation (test code = Normal 86472-7) [facility] GLUCOSE (AUTOMATED)2020-12-15 15:15:00 Test Item Value Reference Range Interpretation Comments POCT GLU (test code = 4899099263) 181 mg/dL 70-110 H Lab Interpretation (test code = Abnormal 99371-0) [facility] (NA, K, CL, CO2, GLUCOSE, BUN, CREATININE, CA)2020-12-15 13:07:00 Test Item Value Reference Range Interpretation Comments NA (test code = 136 mmol/L 135-145 4637738548) K (test code = 3.6 mmol/L 3.5-5.0 2956424617) CL (test code = 96 mmol/L 98-108 L 1079822307) CO2 TOTAL (test code = 29 mmol/L 23-31 9637503236) AGAP (test code = 2-16 3469095846) BUN (test code = 12 mg/dL 7-23 4364063431) GLUCOSE (test code = 183 mg/dL 70-110 H 7586918810) CREATININE (test code = 0.70 mg/dL 0.60-1.25 3009658437) CALCIUM (test code = 9.2 mg/dL 8.6-10.6 4194444676) eGFR Calculation mL/min/1.73m2 (Non-) (test code = 8435946119) eGFR Calculation mL/min/1.73m2 () (test code = 4189620359) JAMES (test code = JAMES) Association of [...] tests). Lab Interpretation Abnormal (test code = 20008-4) [facility] WITH [id number] 12:32:00 Test Item Value Reference Range Interpretation Comments WBC (test code = See_Comment H [Automated 0990-2) message] The system which generated this result transmit ronan reference range : 4.20 - 10.70 10*3/?L. The reference range was not used to interpret this result as normal/abnormal . RBC (test code = See_Comment H [Automated 639-8) message] The system which generated this result [...] RDW-SD (test code = 44.4 fL 38.5-51.6 54722-7) RDW-CV (test code = 17.7 % 12.1-15.4 H 788-0) PLT (test code = See_Comment H [Automated 777-3) message] The system which generated this result transmit ronan reference range : 150 - 328 10*3/ ?L. The reference range was not u sed to interpret th is result as normal/abnormal . MPV (test code = 8.1 fL 9.8-13.0 L 73660-6) NRBC/100 WBC (test See_Comment [Automat ed code = 3783131167) message] The system which generated this result transmit ronan reference range : 0.0 - 10.0 /100 WBCs. The reference range was not used to interpret this result as normal/abnormal . NRBC x10^3 (test code <0.01 See_Comment [Auto mated = 0561285500) message] The system which generated this result transmit ronan reference range : 10*3/?L. The reference range was not used to interpret this result as normal/abnormal . GRAN MAT (NEUT) % 74.5 % (test code = 770-8) IMM GRAN % (test code 0.70 % = 8368949862) LYMPH % (test code = 17.4 % 736-9) MONO % (test code = 6.8 % 5905-5) EOS % (test code = 0.2 % 713-8) BASO % (test code = 0.4 % 706-2) GRAN MAT x10^3(ANC) 11.99 10*3/uL 1.99-6.95 H (test code = 3957773459) IMM GRAN x10^3 (test 0.11 10*3/uL 0.00-0.06 H code = 3974723607) LYMPH x10^3 (test code 2.80 10*3/uL 1.09-3.23 = 731-0) MONO x10^3 (test code 1.10 10*3/uL 0.36-1.02 H = 742-7) EOS x10^3 (test code = 0.03 10*3/uL 0.06-0.53 L 711-2) BASO x10^3 (test code 0.06 10*3/uL 0.01-0.09 = 704-7) Lab Interpretation Abnormal (test code = 48685-9) [facility] GLUCOSE (AUTOMATED)2020-12-15 04:16:00 Test Item Value Reference Range Interpretation Comments POCT GLU (test code = 2012813269) 200 mg/dL 70-110 H Lab Interpretation (test code = Abnormal 55182-6) [facility] CampusVITAMIN B1 (THIAMINE), WHOLE [id number] 00:30:00 Test Item Value Reference Range Interpretation Comments Vitamin B1, Whole 136 nmol/L 70-180 INTERPRETI VE INFORMATION: Blood (test code = Vitamin B 1, Whole Blood 45723-7) This assay júnior ures the concentration o [...] clinical purposes.Perfor med By: [facility] [place] [address] [id number] aboratory Director: Namrata Klein MD [facility] GLUCOSE (AUTOMATED)2020-12-14 23:35:00 Test Item Value Reference Range Interpretation Comments POCT GLU (test code = 1996509957) 151 mg/dL 70-110 H Lab Interpretation (test code = Abnormal 11162-5) [facility] GLUCOSE (AUTOMATED)2020-12-14 19:19:00 Test Item Value Reference Range Interpretation Comments POCT GLU (test code = 5193824170) 193 mg/dL 70-110 H Lab Interpretation (test code = Abnormal 07292-0) [facility] GLUCOSE (AUTOMATED)2020-12-14 15:22:00 Test Item Value Reference Range Interpretation Comments POCT GLU (test code = 3685743895) 221 mg/dL 70-110 H Lab Interpretation (test code = Abnormal 13629-9) [facility] GLUCOSE (AUTOMATED)2020-12-14 02:37:00 Test Item Value Reference Range Interpretation Comments POCT GLU (test code = 5093453171) 210 mg/dL 70-110 H Lab Interpretation (test code = Abnormal 50619-8) [facility] GLUCOSE (AUTOMATED)2020-12-13 23:33:00 Test Item Value Reference Range Interpretation Comments POCT GLU (test code = 9276824138) 182 mg/dL 70-110 H Lab Interpretation (test code = Abnormal 53466-6) [facility] GLUCOSE (AUTOMATED)2020-12-13 18:09:00 Test Item Value Reference Range Interpretation Comments POCT GLU (test code = 3943541602) 150 mg/dL 70-110 H Lab Interpretation (test code = Abnormal 15125-3) [facility] METABOLIC PANEL (NA, K, CL, CO2, GLUCOSE, BUN, CREATININE, CA)2020-12-13 16:27:00 Test Item Value Reference Range Interpretation Comments NA (test code = 136 mmol/L 135-145 9781314980) K (test code = 3.7 mmol/L 3.5-5.0 4169880749) CL (test code = 96 mmol/L 98-108 L 6676430856) CO2 TOTAL (test code = 29 mmol/L 23-31 3042321049) AGAP (test code = 2-16 3945183482) BUN (test code = 6 mg/dL 7-23 L 0570684854) GLUCOSE (test code = 212 mg/dL 70-110 H 1193715680) CREATININE (test code = 0.61 mg/dL 0.60-1.25 8453599823) CALCIUM (test code = 9.5 mg/dL 8.6-10.6 2013972774) eGFR Calculation mL/min/1.73m2 (Non-) (test code = 2467179000) eGFR Calculation mL/min/1.73m2 () (test code = 9417109473) JAMES (test code = JAMES) Association of [...] tests). Lab Interpretation Abnormal (test code = 79276-2) [facility] WITH [id number] 16:10:00 Test Item Value Reference Range Interpretation Comments WBC (test code = See_Comment H [Automated 6490-2) message] The sy stem which generated this result transmitted reference range : 4.20 - 10.70 10*3/?L. The reference range was not used to interpret this result as normal/abnormal . RBC (test code = See_Comment H [Automated 949-8) message] The sy stem which [...] RDW-SD (test code = 43.3 fL 38.5-51.6 41912-9) RDW-CV (test code = 16.2 % 12.1-15.4 H 788-0) PLT (test code = See_Comment H [Automated 777-3) message] The sy stem which generated this result transmitted reference range : 150 - 328 10*3/ ?L. The reference r torito was not used to interpret this result as normal/abnormal . MPV (test code = 8.2 fL 9.8-13.0 L 75049-6) NRBC/100 WBC (test See_Comment [Automat ed code = 3047348184) message] The system which generated this result transmitted reference range : 0.0 - 10.0 /100 WBCs. The refer ence range was not u sed to interpret th is result as normal/abnormal . NRBC x10^3 (test code <0.01 See_Comment [Auto mated = 4647928114) message] The s ystem which generated this result transmitted reference range : 10*3/?L. The reference range was not used to interpret this result as normal/abnormal . GRAN MAT (NEUT) % 86.2 % (test code = 770-8) IMM GRAN % (test code 0.70 % = 3806076551) LYMPH % (test code = 10.2 % 736-9) MONO % (test code = 2.5 % 5905-5) EOS % (test code = 0.1 % 713-8) BASO % (test code = 0.3 % 706-2) GRAN MAT x10^3(ANC) 9.61 10*3/uL 1.99-6.95 H (test code = 8974684999) IMM GRAN x10^3 (test 0.08 10*3/uL 0.00-0.06 H code = 6223464395) LYMPH x10^3 (test code 1.14 10*3/uL 1.09-3.23 = 731-0) MONO x10^3 (test code 0.28 10*3/uL 0.36-1.02 L = 742-7) EOS x10^3 (test code = <0.03 0.06-0.53 L 711-2) BASO x10^3 (test code 0.03 10*3/uL 0.01-0.09 = 704-7) Lab Interpretation Abnormal (test code = 62087-5) [facility]2020-12-13 14:16:00 Test Item Value Reference Range Interpretation Comments POCT GLU (test code = 0069225121) 236 mg/dL 70-110 H Lab Interpretation (test code = Abnormal 18224-3) [facility]LAB [facility] COVID [id number] 04:58:00COVID DMT InterpretationInterpretation/Recommendations: Molecular NAAT Tests for [...] COVID-19 testing the patient has had at [facility], including molecular NAAT testing (more commonly known as PCR testing and Rapid ID Now testing) and antibody testing. It does not take into account any testingthat a patient has had outside of the [facility] medical record. [facility] LABORATORY SERVICESCOVID ItmgvrrIGQO-XaZ-4 Rapid ID NOW (no units) ? ? Date ? Value ? 12/11/2020 ? Not Detected ? ? ? 11/16/2020 ? Not Detected ? ? ? 08/21/2020 ? Not Detected ? [facility] 2020-12-13 03:11:00 Test Item Value Reference Range Interpretation Comments POCT GLU (test code = 4773058233) 171 mg/dL 70-110 H Lab Interpretation (test code = Abnormal 17412-9) [facility] GLUCOSE (AUTOMATED)2020-12-13 00:00:00 Test Item Value Reference Range Interpretation Comments POCT GLU (test code = 2162731139) 118 mg/dL 70-110 H Lab Interpretation (test code = Abnormal 39896-5) [facility] GLUCOSE (AUTOMATED)2020-12-12 20:29:00 Test Item Value Reference Range Interpretation Comments POCT GLU (test code = 0182349520) 173 mg/dL 70-110 H Lab Interpretation (test code = Abnormal 62076-1) [facility] Campus[facility] ABDOMEN [id number] 19:56:17 1. ?Hepatic steatosis. However, limited evaluation [...] portal veinwasevaluated with color Doppler imaging. Medical Billing And Coding Instructor images were obtainedfor the record. COMPARISON: Ultrasound [...] vein wasevaluated with color Doppler imaging. Medical Billing And Coding Instructor images wereobtainedfor the record.COMPARISON: Ultrasound abdomen 11/17/2028. [...] agree with the abovereport.[facility]2020-12-12 19:24:00 Test Item Value Reference Range Interpretation Comments POCT GLU (test code = 2204603738) 230 mg/dL 70-110 H Lab Interpretation (test code = Abnormal 93634-0) [facility] CampusXR CHEST 1 [id number] 15:16:46 Low lung volumes with mild perihilar [...] study and agree with theabove report.[facility]2020-12-12 14:34:00 Test Item Value Reference Range Interpretation Comments POCT GLU (test code = 6644201905) 225 mg/dL 70-110 H Lab Interpretation (test code = Abnormal 23907-0) [facility] CampusURINE [id number] 13:28:00 Test Item Value Reference Range Interpretation Comments URINE CULTURE (test < 10,000 CFU/mL mixed code = 630-4) aerobic organisms - suggests endogenous microbial contamination [facility] Met[facility] (NA, K, CL, CO2, GLUCOSE, BUN, CREATININE, CA)2020-12-12 10:05:00 Test Item Value Reference Range Interpretation Comments NA (test code = 136 mmol/L 135-145 7932469434) K (test code = 3.5 mmol/L 3.5-5.0 5419361286) CL (test code = 100 mmol/L 98-108 5972334156) CO2 TOTAL (test code = 31 mmol/L 23-31 5802671782) AGAP (test code = 2-16 4326011878) BUN (test code = 7 mg/dL 7-23 4854516715) GLUCOSE (test code = 259 mg/dL 70-110 H 3413001568) CREATININE (test code = 0.63 mg/dL 0.60-1.25 7808323085) CALCIUM (test code = 8.5 mg/dL 8.6-10.6 L 2082325738) eGFR Calculation mL/min/1.73m2 (Non-) (test code = 3471392551) eGFR Calculation mL/min/1.73m2 () (test code = 9783706223) JAMES (test code = JAMES) Association of [...] tests). Lab Interpretation Abnormal (test code = 15577-6) [facility] CampusMagnesium [id number] 10:05:00 Test Item Value Reference Range Interpretation Comments MAGNESIUM (test code = 8312450364) 1.9 mg/dL 1.7-2.4 Lab Interpretation (test code = Normal 02344-2) [facility] with [id number] 09:48:00 Test Item Value Reference Range Interpretation Comments WBC (test code = See_Comment [Automated 1790-2) message] The sy stem which generated this [...] RDW-SD (test code = 46.0 fL 38.5-51.6 43698-5) RDW-CV (test code = 16.1 % 12.1-15.4 H 788-0) PLT (test code = See_Comment H [Automated 777-3) message] The sy stem which generated this result transmitted reference range : 150 - 328 10*3/ ?L. The reference r torito was not used to interpret this result as normal/abnormal . MPV (test code = 8.6 fL 9.8-13.0 L 99045-9) NRBC/100 WBC (test See_Comment [Automat ed code = 3227642101) message] The system which generated this result transmitted reference range : 0.0 - 10.0 /100 WBCs. The refer ence range was not u sed to interpret th is result as normal/abnormal . NRBC x10^3 (test code <0.01 See_Comment [Auto mated = 1044994178) message] The s ystem which generated this result transmitted reference range : 10*3/?L. The reference range was not used to interpret this result as normal/abnormal . GRAN MAT (NEUT) % 70.2 % (test code = 770-8) IMM GRAN % (test code 0.30 % = 8075676378) LYMPH % (test code = 18.8 % 736-9) MONO % (test code = 5.0 % 5905-5) EOS % (test code = 5.2 % 713-8) BASO % (test code = 0.5 % 706-2) GRAN MAT x10^3(ANC) 6.05 10*3/uL 1.99-6.95 (test code = 5332223696) IMM GRAN x10^3 (test 0.03 10*3/uL 0.00-0.06 code = 6567740610) LYMPH x10^3 (test code 1.62 10*3/uL 1.09-3.23 = 731-0) MONO x10^3 (test code 0.43 10*3/uL 0.36-1.02 = 742-7) EOS x10^3 (test code = 0.45 10*3/uL 0.06-0.53 711-2) BASO x10^3 (test code 0.04 10*3/uL 0.01-0.09 = 704-7) Lab Interpretation Abnormal (test code = 84885-6) [facility]2020-12-12 03:42:00 Test Item Value Reference Range Interpretation Comments POCT GLU (test code = 196 mg/dL 70-110 H Notifi ed Provider 6128885099) Lab Interpretation (test Abnormal code = 06471-6) [facility] CampusFOLATE2021-03-02 02:24:00 Test Item Value Reference Range Interpretation Comments FOLATE SER (test code = 5981763349) 5.8 ng/mL 3.0-20.0 Lab Interpretation (test code = Normal 13371-2) [facility] CampusVITAMIN B12, [id number] 00:55:00 Test Item Value Reference Range Interpretation Comments VIT B12 (test code = 844 pg/mL 240-930 2189622903) JAMES (test code = JAMES) Biotin has been reported to cause a positive bias, interpret results relative to patient's use of biotin. Lab Interpretation (test Normal code = 99873-6) [facility]2020-12-12 00:14:00 Test Item Value Reference Range Interpretation Comments POCT GLU (test code = 8445359730) 164 mg/dL 70-110 H Lab Interpretation (test code = Abnormal 08388-4) [facility] CampusCREATINE [id number] 23:42:00 Test Item Value Reference Range Interpretation Comments CK (test code = 0669208517) <20 33-194 L Lab Interpretation (test code = Abnormal 00156-2) [facility] CampusTHYROID STIMULATING [id number] 23:17:00 Test Item Value Reference Range Interpretation Comments TSH (test code = See_Comment Biotin has been 1136060733) reported to cau se a negative bias, interpret resul ts relative to pat sanju's use of biotin. [Automated mess age] The system [employer] generated this result transmitted ref erence range: 0.45 - 4 .70 mIU/L. The refe rence range was not u sed to interpret this result as normal/abnor mal. Lab Interpretation (test Normal code = 43123-5) [facility] CampusXR HIPS 3 VW [id number] 21:41:53No appreciable fracture lines. RL: 6200 ICAL [...] erosions.IMPRESSIONNo appreciable fracture lines.RL: 6200 [facility]wallPROCALCITONIN2021-03-01 20:00:00 Test Item Value Reference Range Interpretation Comments Procalcitonin (test 0.13 ng/mL <0.07 H code = 3346552163) JAMES (test code = JAMES) INTERPRETATION OF [...] biotics/default.asp Lab Interpretation Abnormal (test code = 78288-1) [facility]2020-12-11 19:07:00 Test Item Value Reference Range Interpretation Comments POCT GLU (test code = 5108735007) 274 mg/dL 70-110 H Lab Interpretation (test code = Abnormal 56862-6) [facility] CampusMAGNESIUM2021-03-01 18:31:00 Test Item Value Reference Range Interpretation Comments MAGNESIUM (test code = 0318068322) 1.9 mg/dL 1.7-2.4 Lab Interpretation (test code = Normal 04502-4) [facility] CampusFERRITIN [id number] 18:31:00 Test Item Value Reference Range Interpretation Comments FERRITIN (test code = 178.0 ng/mL 18.0-464.0 6709294459) JAMES (test code = JAMES) Biotin has been reported to cause a negative bias, interpret results relative to patient's use of biotin. Lab Interpretation (test Normal code = 30848-4) [facility] HEAD WO [id number] 14:36:47 No acute intracranial abnormality. Dilated ventricles [...] Comments APPEARANCE (test code = Clear Clear 4706305996) COLOR (test code = Yellow Yellow 2903400600) PH (test code = 4.8-8.0 6472973725) SP GRAVITY (test code = 1.003-1.030 9663462247) GLU U QUAL (test code = 500 mg/dL Normal A 5838524937) BLOOD (test code = Negative Negative 7436638883) KETONES (test code = 5 mg/dL Negative A 1864759232) PROTEIN (test code = Negative Negative 2887-8) UROBILIN (test code = Normal Normal 9681395834) BILIRUBIN (test code = Negative Negative 6015603508) NITRITE (test code = Negative Negative 8639516747) LEUK RYAN (test code = Negative Negative 6208845480) RBC/HPF (test code = See_Comment [Autom ated message] 0753123113) The system [employer] generated this result transmit ronan reference range : 0 - 3 HPF. The refe rence range was not u sed to interpret th is result as normal/abnormal . WBC/HPF (test code = See_Comment [Autom ated message] 4258311968) The system [employer] generated this result transmit ronan reference range : 0 - 5 HPF. The refe rence range was not u sed to interpret th is result as normal/abnormal . BACTERIA (test code = Negative Negative 2799573993) MUCOUS (test code = Slight Negative LPF A [id number]) SQ EPITH (test code = HPF 3081528201) Lab Interpretation (test Abnormal code = 66140-5) [facility] NOW RAPID TESTING)2020-12-11 13:10:00 Test Item Value Reference Range Interpretation Comments SARS-CoV-2 Rapid ID NOW Not Detected Not Detected (test code = 31845-9) JAMES (test code = JAMES) ID NOW COVID-19 Assay is an isothermal nucleic acid amplification test intended for the qualitative detection of nucleic acid from SARS-CoV-2 viral RNA in nasopharyngeal ([employer]) specimens. It is used under Emergency Use [...] indicated. Lab Interpretation Normal (test code = 68167-3) [facility] METABOLIC PANEL (13325)2020-12-11 12:29:00 Test Item Value Reference Range Interpretation Comments NA (test code = 136 mmol/L 135-145 0524415602) K (test code = 3.5 mmol/L 3.5-5.0 1775708250) CL (test code = 95 mmol/L 98-108 L 1974339632) CO2 TOTAL (test code = 35 mmol/L 23-31 H 7762870025) AGAP (test code = 2-16 1502944504) BUN (test code = 9 mg/dL 7-23 2610434861) GLUCOSE (test code = 329 mg/dL 70-110 H 2971453392) CREATININE (test code = 0.72 mg/dL 0.60-1.25 8443668106) TOTAL BILI (test code = 0.6 mg/dL 0.1-1.6 8154741794) CALCIUM (test code = 9.0 mg/dL 8.6-10.6 6431869306) T PROTEIN (test code = 6.8 g/dL 6.3-8.2 7822333139) ALBUMIN (test code = 3.8 g/dL 3.5-5.0 4610607389) ALK PHOS (test code = 288 U/L 34-122 H 2722103227) ALTv (test code = 46 U/L 5-50 1742-6) AST(SGOT) (test code = 38 U/L 13-40 7792460057) eGFR Calculation mL/min/1.73m2 (Non-) (test code = 1896420077) eGFR Calculation mL/min/1.73m2 () (test code = 4549204778) JAMES (test code = JAMES) Association of [...] tests). Lab Interpretation Abnormal (test code = 12799-2) [facility] CampusL[facility] Acid Whole [id number] 12:23:00 Test Item Value Reference Range Interpretation Comments LACTIC ACID (test code = 2.09 mmol/L 0.50-2.20 7846853473) Lab Interpretation (test code = Normal 43528-5) [facility] WITH [id number] 12:17:00 Test Item Value Reference Range Interpretation Comments WBC (test code = See_Comment H [Automated 9594-2) message] The sy stem which generated this result transmitted reference range : 4.20 - 10.70 10*3/?L. The reference range was not used to interpret this result as normal/abnormal . RBC (test code = See_Comment [Automated 905-8) message] The sy stem which generated this [...] RDW-SD (test code = 44.9 fL 38.5-51.6 62518-8) RDW-CV (test code = 15.9 % 12.1-15.4 H 788-0) PLT (test code = See_Comment H [Automated 777-3) message] The sy stem which generated this result transmitted reference range : 150 - 328 10*3/ ?L. The reference r torito was not used to interpret this result as normal/abnormal . MPV (test code = 8.3 fL 9.8-13.0 L 57427-3) NRBC/100 WBC (test See_Comment [Automat ed code = 6945998083) message] The system which generated this result transmitted reference range : 0.0 - 10.0 /100 WBCs. The refer ence range was not u sed to interpret th is result as normal/abnormal . NRBC x10^3 (test code <0.01 See_Comment [Auto mated = 3026848249) message] The s ystem which generated this result transmitted reference range : 10*3/?L. The reference range was not used to interpret this result as normal/abnormal . GRAN MAT (NEUT) % 77.9 % (test code = 770-8) IMM GRAN % (test code 0.50 % = 3999546942) LYMPH % (test code = 12.2 % 736-9) MONO % (test code = 5.2 % 5905-5) EOS % (test code = 3.7 % 713-8) BASO % (test code = 0.5 % 706-2) GRAN MAT x10^3(ANC) 9.57 10*3/uL 1.99-6.95 H (test code = 1904144954) IMM GRAN x10^3 (test 0.06 10*3/uL 0.00-0.06 code = 2315016852) LYMPH x10^3 (test code 1.50 10*3/uL 1.09-3.23 = 731-0) MONO x10^3 (test code 0.64 10*3/uL 0.36-1.02 = 742-7) EOS x10^3 (test code = 0.46 10*3/uL 0.06-0.53 711-2) BASO x10^3 (test code 0.06 10*3/uL 0.01-0.09 = 704-7) Lab Interpretation Abnormal (test code = 73639-0) [facility]LAB ONLY COVID [id number] 18:43:00COVID DMT InterpretationInterpretation/Recommendations: Molecular NAAT Test Results [...] a nasopharyngeal sample, there is approximately a dld-cv-mtyei chance that the patient was infected and [...] based upon aggregate data pooled from the [facility] medical recordincluding both current and prior COVID-19 related testing results for the following tests offered atour institution:A. Tests for the Identification of SARS-CoV-2 RNA:SARS-CoV-2 PCR assays including [place] Aptima, [place] Fusion, Barrett RealTime, and Advanced Biomedical Technologiesert Xpress. SARS-CoV-2 Rapid ID NOW by the ID NOW assay. ? B. Tests for the Identification of SARS-CoV-2 Antibodies: Chemiluminescent immunoassays including Access SARS-CoV-2 IgM (DXI 600), VITROS Wtdu-ITNJ-GhB-2 IgG (Vitros 5600 and Vitros 3600), and Barrett SARS-CoV-2 IgG (COMMERCIAL PILOT I System). These interpretation comments assume that only the above testing was utilized and that the approved acceptable specimen type(s) were used for a given test. These interpretations are autopopulated into [employer] based on computerized algorithms matching an interpretation code number to the patient's set of test results. While a clinical pathologist evaluates the combinations for clinical accuracy, clinical correlation is recommended as it may not take into account very remote prior testing. Furthermore, it does not consider testing a patient may have had outside of the [facility] system. Additionally, it should be noted that the computerized algorithm treats the results for PCR testing and Rapid ID NOW testing (also PCR) synonymously, and thus, refers to both testing methodologies as PCR tests. Given that the sensitivity of [facility]'s Rapid ID NOW testing platform [...] the common cold, etc. Influenza testing and – if clinically indicated – a respiratory pathogen panel may be beneficialin this setting. [facility] LABORATORY SERVICESCOVID OjmepqsBGUL-MhW-1 Rapid ID NOW (no units) ? ? Date ? Value ? 08/21/2020 ? Not Detected ? [facility] LABORATORY SERVICESUnTexas [facility] RockwallPOCT GLUCOSE (AUTOMATED)2020-08-23 18:25:00 Test Item Value Reference Range Interpretation Comments POCT GLU (test code = 6196313006) 297 mg/dL 70-110 H Lab Interpretation (test code = Abnormal 74822-3) [facility] CampusPOGA GLUCOSE (AUTOMATED)2020-08-23 14:25:00 Test Item Value Reference Range Interpretation Comments POCT GLU (test code = 3246063350) 181 mg/dL 70-110 H Lab Interpretation (test code = Abnormal 54718-4) [facility] Metabolic Panel (NA, K, CL, CO2, GLUCOSE, BUN, CREATININE, CA)2020-08-23 11:45:00 Test Item Value Reference Range Interpretation Comments NA (test code = 132 mmol/L 135-145 L 8028966347) K (test code = 4.0 mmol/L 3.5-5 0990360447) CL (test code = 96 mmol/L 98-108 L 7037838448) CO2 TOTAL (test code = 33 mmol/L 23-31 H 7778429564) AGAP (test code = 2-16 0645386371) BUN (test code = 9 mg/dL 7-23 3751276469) GLUCOSE (test code = 176 mg/dL 70-110 H 4839135138) CREATININE (test code = 0.66 mg/dL 0.6-1.25 1076598819) CALCIUM (test code = 8.5 mg/dL 8.6-10.6 L 3310700781) eGFR Calculation mL/min/1.73m2 (Non-) (test code = 0292931703) eGFR Calculation mL/min/1.73m2 () (test code = 4785505407) JAMES (test code = JAMES) Association of [...] tests). Lab Interpretation Abnormal (test code = 99224-2) [facility] CampusMagnesium [id number] 11:45:00 Test Item Value Reference Range Interpretation Comments MAGNESIUM (test code = 6126825517) 2.0 mg/dL 1.7-2.4 Lab Interpretation (test code = Normal 26008-6) [facility] with [id number] 11:38:00 Test Item Value Reference Range Interpretation Comments WBC (test code = See_Comment [Automated 0490-2) message] The sy stem which generated this result transmitted reference range : 4.20 - 10.70 10*3/?L. The reference range was not used to interpret this result as normal/abnormal . RBC (test code = See_Comment [Automated 959-8) message] The sy stem which generated this [...] RDW-SD (test code = 41.8 fL 38.5-51.6 68133-8) RDW-CV (test code = 14.3 % 12.1-15.4 788-0) PLT (test code = See_Comment H [Automated 777-3) message] The sy stem which generated this result transmitted reference range : 150 - 328 10*3/ ?L. The reference r torito was not used to interpret this result as normal/abnormal . MPV (test code = 8.0 fL 9.8-13 L 61568-8) NRBC/100 WBC (test See_Comment [Automat ed code = 9513563366) message] The system which generated this result transmitted reference range : 0.0 - 10.0 /100 WBCs. The refer ence range was not u sed to interpret th is result as normal/abnormal . NRBC x10^3 (test code <0.01 See_Comment [Auto mated = 1433039326) message] The s ystem which generated this result transmitted reference range : 10*3/?L. The reference range was not used to interpret this result as normal/abnormal . GRAN MAT (NEUT) % 61.5 % (test code = 770-8) IMM GRAN % (test code 2.00 % = 4330828136) LYMPH % (test code = 25.5 % 736-9) MONO % (test code = 6.3 % 5905-5) EOS % (test code = 3.7 % 713-8) BASO % (test code = 1.0 % 706-2) GRAN MAT x10^3(ANC) 5.29 10*3/uL 1.99-6.95 (test code = 6694532824) IMM GRAN x10^3 (test 0.17 10*3/uL 0-0.06 H code = 9873606757) LYMPH x10^3 (test code 2.19 10*3/uL 1.09-3.23 = 731-0) MONO x10^3 (test code 0.54 10*3/uL 0.36-1.02 = 742-7) EOS x10^3 (test code = 0.32 10*3/uL 0.06-0.53 711-2) BASO x10^3 (test code 0.09 10*3/uL 0.01-0.09 = 704-7) Lab Interpretation Abnormal (test code = 42135-2) [facility] GLUCOSE (AUTOMATED)2020-08-23 10:22:00 Test Item Value Reference Range Interpretation Comments POCT GLU (test code = 4431845172) 164 mg/dL 70-110 H Lab Interpretation (test code = Abnormal 71284-0) [facility] GLUCOSE (AUTOMATED)2020-08-23 05:56:00 Test Item Value Reference Range Interpretation Comments POCT GLU (test code = 8486856494) 242 mg/dL 70-110 H Lab Interpretation (test code = Abnormal 08662-0) [facility] GLUCOSE (AUTOMATED)2020-08-23 03:02:00 Test Item Value Reference Range Interpretation Comments POCT GLU (test code = 1568624257) 210 mg/dL 70-110 H Lab Interpretation (test code = Abnormal 17495-7) [facility] GLUCOSE (AUTOMATED)2020-08-22 23:40:00 Test Item Value Reference Range Interpretation Comments POCT GLU (test code = 7336683660) 267 mg/dL 70-110 H Lab Interpretation (test code = Abnormal 91612-0) [facility] GLUCOSE (AUTOMATED)2020-08-22 19:08:00 Test Item Value Reference Range Interpretation Comments POCT GLU (test code = 5102000826) 191 mg/dL 70-110 H Lab Interpretation (test code = Abnormal 10138-6) [facility] GLUCOSE (AUTOMATED)2020-08-22 13:50:00 Test Item Value Reference Range Interpretation Comments POCT GLU (test code = 2171707812) 174 mg/dL 70-110 H Lab Interpretation (test code = Abnormal 71539-4) [facility] CampusURINE [id number] 12:59:00 Test Item Value Reference Range Interpretation Comments URINE CULTURE (test No aerobic growth (< code = 630-4) 1000 CFU/mL) [facility] with Vojsafedphll1512-33-55 11:28:00 Test Item Value Reference Range Interpretation [...] RDW-SD (test code = 42.5 fL 38.5-51.6 27138-9) RDW-CV (test code = 14.5 % 12.1-15.4 788-0) PLT (test code = See_Comment H [Automated 777-3) message] The sy stem which generated this result transmitted reference range : 150 - 328 10*3/ ?L. The reference r torito was not used to interpret this result as normal/abnormal . MPV (test code = 8.0 fL 9.8-13 L 15423-9) NRBC/100 WBC (test See_Comment [Automat ed code = 8658708532) message] The system which generated this result transmitted reference range : 0.0 - 10.0 /100 WBCs. The refer ence range was not u sed to interpret th is result as normal/abnormal . NRBC x10^3 (test code <0.01 See_Comment [Auto mated = 5546994583) message] The s ystem which generated this result transmitted reference range : 10*3/?L. The reference range was not used to interpret this result as normal/abnormal . GRAN MAT (NEUT) % 69.1 % (test code = 770-8) IMM GRAN % (test code 2.20 % = 7987186894) LYMPH % (test code = 20.9 % 736-9) MONO % (test code = 5.8 % 5905-5) EOS % (test code = 1.0 % 713-8) BASO % (test code = 1.0 % 706-2) GRAN MAT x10^3(ANC) 6.51 10*3/uL 1.99-6.95 (test code = 3635310729) IMM GRAN x10^3 (test 0.21 10*3/uL 0-0.06 H code = 4523754153) LYMPH x10^3 (test code 1.97 10*3/uL 1.09-3.23 = 731-0) MONO x10^3 (test code 0.55 10*3/uL 0.36-1.02 = 742-7) EOS x10^3 (test code = 0.09 10*3/uL 0.06-0.53 711-2) BASO x10^3 (test code 0.09 10*3/uL 0.01-0.09 = 704-7) BASO STIPPLING (test Present A code = 703-9) BANDS (test code = Increased A 1799750743) TOXIC CHANGES (test Present A code = 803-7) Lab Interpretation Abnormal (test code = 32654-3) [facility] (NA, K, CL, CO2, GLUCOSE, BUN, CREATININE, CA)2020-08-22 11:12:00 Test Item Value Reference Range Interpretation Comments NA (test code = 135 mmol/L 135-145 7374290359) K (test code = 3.6 mmol/L 3.5-5 8870439036) CL (test code = 99 mmol/L 98-108 6945745038) CO2 TOTAL (test code = 31 mmol/L 23-31 8214567690) AGAP (test code = 2-16 7538236511) BUN (test code = 9 mg/dL 7-23 0256471181) GLUCOSE (test code = 198 mg/dL 70-110 H 0760600218) CREATININE (test code = 0.72 mg/dL 0.6-1.25 1095579605) CALCIUM (test code = 8.3 mg/dL 8.6-10.6 L 6934442447) eGFR Calculation mL/min/1.73m2 (Non-) (test code = 0964897207) eGFR Calculation mL/min/1.73m2 () (test code = 8855912304) JAMES (test code = JAMES) Association of [...] tests). Lab Interpretation Abnormal (test code = 78195-4) [facility] CampusMagnesium Hyyku4564-08-53 11:12:00 Test Item Value Reference Range Interpretation Comments MAGNESIUM (test code = 5906748534) 2.0 mg/dL 1.7-2.4 Lab Interpretation (test code = Normal 42029-9) [facility] CampusLipid Panel (Total Cholesterol, Triglycerides, HDL) - [id number] 11:12:00 Test Item Value Reference Range Interpretation Comments CHOL (test code = 155 mg/dL 120-200 6360203532) HDL (test code = 42 mg/dL >40 7169318209) HDLC RATIO (test code = See_Comment [Au tomated message] 8766737755) The system [employer] generated this result transmit ronan reference range : <=5.0. The refe rence range was not u sed to interpret th is result as normal/abnormal . TRIG (test code = 186 mg/dL 30-170 H 0906972638) LDL CHOL (test code = 76 mg/dL See_Comment [Auto mated message] 52303-4) The system [employer] generated this result transmit ronan reference range : <=160. The refe rence range was not u sed to interpret th is result as normal/abnormal . VLDL (test code = 37 mg/dL 5-60 4930740769) Lab Interpretation (test Abnormal code = 95273-4) [facility] CampusHEPATIC FUNCTION PANEL (49340) (ALB,T.PRO,BILI T,BU/BC,ALT,AST,ALK PHOS)2020-08-22 11:12:00 Test Item Value Reference Range Interpretation Comments TOTAL BILI (test code = 8451185526) 0.6 mg/dL 0.1-1.1 BILI UNCON (test code = 6827567819) 0.2 mg/dL 0.1-1.1 BILI CONJ (test code = 7836504261) 0.0 mg/dL 0-0.3 T PROTEIN (test code = 6065813625) 6.0 g/dL 6.3-8.2 L ALBUMIN (test code = 7420905857) 2.8 g/dL 3.5-5 L ALK PHOS (test code = 7910172969) 222 U/L 34-122 H ALTv (test code = 1742-6) 27 U/L 5-50 AST(SGOT) (test code = 8149627494) 30 U/L 13-40 Lab Interpretation (test code = Abnormal 60256-0) [facility] GLUCOSE (AUTOMATED)2020-08-22 10:11:00 Test Item Value Reference Range Interpretation Comments POCT GLU (test code = 7462691342) 196 mg/dL 70-110 H Lab Interpretation (test code = Abnormal 97887-1) [facility] GLUCOSE (AUTOMATED)2020-08-22 07:15:00 Test Item Value Reference Range Interpretation Comments POCT GLU (test code = 5578725207) 183 mg/dL 70-110 H Lab Interpretation (test code = Abnormal 26172-4) [facility] GLUCOSE (AUTOMATED)2020-08-22 02:30:00 Test Item Value Reference Range Interpretation Comments POCT GLU (test code = 4696502601) 295 mg/dL 70-110 H Lab Interpretation (test code = Abnormal 61195-1) [facility] GLUCOSE (AUTOMATED)2020-08-21 23:46:00 Test Item Value Reference Range Interpretation Comments POCT GLU (test code = 4713620719) 258 mg/dL 70-110 H Lab Interpretation (test code = Abnormal 34076-7) [facility] CampusC-REACTIVE [id number] 18:50:00 Test Item Value Reference Range Interpretation Comments CRP (test code = 7622831481) 15.5 mg/dL <0.8 H Lab Interpretation (test code = Abnormal 62215-3) [facility] GLUCOSE (AUTOMATED)2020-08-21 18:21:00 Test Item Value Reference Range Interpretation Comments POCT GLU (test code = 8813461898) 297 mg/dL 70-110 H Lab Interpretation (test code = Abnormal 76240-6) [facility] CampusETHANOL2020-11-09 16:24:00 Test Item Value Reference Range Interpretation Comments ALCOHOL (test code = <10 mg/dL 5035910848) JAMES (test code = Toxic Greater than or JAMES) equal to 80 mg/dL. NOTE: Whole blood values are approximately 10% to 15% lower than serum and plasma. [facility] ONLY - URINE DRUG (IMMUNOASSAY) - 4 ER [id number] 15:36:00 Test Item Value Reference Range Interpretation Comments AMPHET (test code = Negative Negative 4438443306) Cocaine Metabolite (test Negative Negative code = 4643186396) OPIATES (test code = Presumptive Positive Negative A 5537911662) THC (test code = Negative Negative 1224348130) JAMES (test code = JAMES) Urine Drug Cutoff Ranges Amphetamine: ? 1,000 ng/mLCocaine: ? 150 ng/mLOpiates: ? 300 ng/mLCannabinoids: ?50 ng/mL The results are to be used only for medical (i.e., treatment) purposes. Unconfirmed screening results must not be used for non-medical purposes (e.g., employment testing, legal testing). Lab Interpretation (test Abnormal code = 01067-4) [facility] SYPHILIS [id number] 15:04:00 Test Item Value Reference Range Interpretation Comments Syphilis IgG/IgM (test Non-reactive Non-reactive code = 24930-8) JAMES (test code = JAMES) Non-reactive - No serologic evidence of T. pallidum infection. Cannot exclude incubating or early syphilis. Submit a second specimen in 2-4 weeks if syphilis is clinically suspected. Equivocal - Further testing to follow. Reactive - Further testing to follow. Lab Interpretation (test Normal code = 70717-4) [facility] CampusUrinalysis2020-11-09 14:52:00 Test Item Value Reference Range Interpretation Comments APPEARANCE (test code = Clear Clear 0233136618) COLOR (test code = Yellow Yellow 4613078693) PH (test code = 4.8-8.0 2163576434) SP GRAVITY (test code = 1.003-1.030 4613423970) GLU U QUAL (test code = 500 mg/dL Normal A 0401303761) BLOOD (test code = Negative Negative 1339905468) KETONES (test code = 20 mg/dL Negative A 6493224197) PROTEIN (test code = Negative Negative 2887-8) UROBILIN (test code = Normal Normal 5254463400) BILIRUBIN (test code = Negative Negative 2440948783) NITRITE (test code = Negative Negative 4915004870) LEUK RYAN (test code = Negative Negative 2021085937) RBC/HPF (test code = <1 See_Comment [Autom ated message] 5875815300) The system [employer] generated this result transmit ronan reference range : 0 - 3 HPF. The refe rence range was not u sed to interpret th is result as normal/abnormal . WBC/HPF (test code = See_Comment [Autom ated message] 9865510978) The system [employer] generated this result transmit ronan reference range : 0 - 5 HPF. The refe rence range was not u sed to interpret th is result as normal/abnormal . BACTERIA (test code = Negative Negative 6297068074) MUCOUS (test code = Slight Negative LPF A 1121578403) Lab Interpretation (test Abnormal code = 66743-3) [facility] CampusACTIVATED PARTIAL THRMPLAS [id number] 13:45:00 Test Item Value Reference Range Interpretation Comments APTT Patient (test code = See_Comment [ Automated message] 3173-2) The system [employer] generated this result transmitted ref erence range: 26 - 36 Seconds. The re ference range was not u sed to interpret this result as normal/abnor mal. Lab Interpretation (test Normal code = 62447-3) [facility] CampusPO[facility] GLUCOSE (AUT[facility]ATED)2020-08-21 13:45:00 Test Item Value Reference Range Interpretation Comments POCT GLU (test code = 0695334049) 246 mg/dL 70-110 H Lab Interpretation (test code = Abnormal 63108-7) [facility] CampusHIV 1/2 AG-AB WITH [id number] 12:32:00 Test Item Value Reference Range Interpretation Comments HIV Negative Negative Semi-quantitative (test code = 86188-7) JAMES (test code = Non-reactive for HIV-1 JAMES) antigen and HIV-1/HIV-2 antibodies. ?No laboratory evidence of HIV infection. ?Repeat in 2-4 weeks if acute HIV infection is suspected. [facility] CampusCBC WITH [id number] 12:18:00 Test Item Value Reference Range Interpretation Comments WBC (test code = See_Comment [Automated 8790-2) message] The sy stem which generated this result transmitted reference range : 4.20 - 10.70 10*3/?L. The reference range was not used to interpret this result as normal/abnormal . RBC (test code = See_Comment [Automated 759-8) message] The sy stem which [...] RDW-SD (test code = 44.4 fL 38.5-51.6 91350-9) RDW-CV (test code = 14.5 % 12.1-15.4 788-0) PLT (test code = See_Comment H [Automated 777-3) message] The sy stem which generated this result transmitted reference range : 150 - 328 10*3/ ?L. The reference r torito was not used to interpret this result as normal/abnormal . MPV (test code = 8.5 fL 9.8-13 L 86579-5) NRBC/100 WBC (test See_Comment [Automat ed code = 9478517342) message] The system which generated this result transmitted reference range : 0.0 - 10.0 /100 WBCs. The refer ence range was not u sed to interpret th is result as normal/abnormal . NRBC x10^3 (test code <0.01 See_Comment [Auto mated = 0044863807) message] The s ystem which generated this result transmitted reference range : 10*3/?L. The reference range was not used to interpret this result as normal/abnormal . GRAN MAT (NEUT) % 90.4 % (test code = 770-8) IMM GRAN % (test code 1.30 % = 4427014971) LYMPH % (test code = 7.1 % 736-9) MONO % (test code = 0.5 % 5905-5) EOS % (test code = 0.1 % 713-8) BASO % (test code = 0.6 % 706-2) GRAN MAT x10^3(ANC) 7.74 10*3/uL 1.99-6.95 H (test code = 3782402764) IMM GRAN x10^3 (test 0.11 10*3/uL 0-0.06 H code = 7208632090) LYMPH x10^3 (test code 0.61 10*3/uL 1.09-3.23 L = 731-0) MONO x10^3 (test code 0.04 10*3/uL 0.36-1.02 L = 742-7) EOS x10^3 (test code = <0.03 0.06-0.53 L 711-2) BASO x10^3 (test code 0.05 10*3/uL 0.01-0.09 = 704-7) POLYCHROMASIA (test 2+ See_Comment [Automa ronan code = 80748-4) message] The system which generated this result transmitted reference range : 2+. The referen ce range was not u sed to interpret th is result as normal/abnormal . BANDS (test code = Increased A 6738560240) Lab Interpretation Abnormal (test code = 26602-1) [facility] CampusPROCALCITONIN2020-11-09 11:48:00 Test Item Value Reference Range Interpretation Comments Procalcitonin (test 0.36 ng/mL <0.07 H code = 1908457013) JAMES (test code = JAMES) INTERPRETATION OF [...] biotics/default.asp Lab Interpretation Abnormal (test code = 83749-8) [facility] CampusLACTATE [id number] 10:53:00 Test Item Value Reference Range Interpretation Comments LDH (test code = 2103961993) 351 U/L 300-600 Lab Interpretation (test code = Normal 09846-2) [facility] CampusSEDIMENTATION [id number] 10:07:00 Test Item Value Reference Range Interpretation Comments ESR (test code = See_Comment H [Automated message] 5170040143) The system [employer] generated this result transmitted ref erence range: 0 - 10 m m/HR. The reference r torito was not used to interpret this result as normal/abnor mal. Lab Interpretation (test Abnormal code = 34101-4) [facility] CampusPO[facility]SE ([facility])2020-08-21 09:45:00 Test Item Value Reference Range Interpretation Comments POCT GLU (test code = 8250345276) 287 mg/dL 70-110 H Lab Interpretation (test code = Abnormal 76600-0) [facility] [facility]2020-08-21 09:29:00 Test Item Value Reference Range Interpretation Comments HGB A1C (test code = 4548-4) 9.8 % 4-6 H Lab Interpretation (test code = Abnormal 18306-2) [facility] (ID NOW RAPID TESTING)2020-08-21 09:13:00 Test Item Value Reference Range Interpretation Comments SARS-CoV-2 Rapid ID NOW Not Detected Not Detected (test code = 19808-5) JAMES (test code = JAMES) ID NOW COVID-19 Assay is an isothermal nucleic acid amplification test intended for the qualitative detection of nucleic acid from SARS-CoV-2 viral RNA in nasopharyngeal ([employer]) specimens. It is used under Emergency Use [...] indicated. Lab Interpretation Normal (test code = 22049-3) [facility]Proth[facility] Time / OFY9023-31-09 08:59:00 Test Item Value Reference Range Interpretation Comments PROTIME PATIENT (test See_Comment H [Auto mated message] code = 5964-2) The system [employer] generated this result transmitted ref erence range: 10.1 - 1 2.6 Seconds. The reference range was not used to int erpret this result as normal/abnormal . INR (test code = 6301-6) Nor mal INR <1.1; Warfarin Therap eutic range 2.0 to 3. 0 or 2.5 to 3.5, dep ending upon the indica tions. Lab Interpretation (test Abnormal code = 63333-1) [facility]PTT2020-11-09 08:59:00 Test Item Value Reference Range Interpretation Comments APTT Patient (test code = See_Comment [ Automated message] 3173-2) The system [employer] generated this result transmitted ref erence range: 26 - 36 Seconds. The re ference range was not u sed to interpret this result as normal/abnor mal. Lab Interpretation (test Normal code = 12768-2) [facility] (NA, K, CL, CO2, GLUCOSE, BUN, CREATININE, CA)2020-08-21 08:52:00 Test Item Value Reference Range Interpretation Comments NA (test code = 136 mmol/L 135-145 0574908783) K (test code = 4.3 mmol/L 3.5-5 8232406384) CL (test code = 104 mmol/L 98-108 2752181844) CO2 TOTAL (test code = 24 mmol/L 23-31 1386023910) AGAP (test code = 2-16 6001906934) BUN (test code = 8 mg/dL 7-23 8225058085) GLUCOSE (test code = 308 mg/dL 70-110 H 5168489147) CREATININE (test code = 0.72 mg/dL 0.6-1.25 3211013754) CALCIUM (test code = 7.8 mg/dL 8.6-10.6 L 2621396043) eGFR Calculation mL/min/1.73m2 (Non-) (test code = 2917038507) eGFR Calculation mL/min/1.73m2 () (test code = 1588518963) JAMES (test code = JAMES) Association of [...] tests). Lab Interpretation Abnormal (test code = 45479-6) [facility]AT[facility] FUNCTION PANEL (33036) (ALB,T.PRO,BILI T,BU/BC,ALT,AST,ALK PHOS)2020-08-21 08:52:00 Test Item Value Reference Range Interpretation Comments TOTAL BILI (test code = 2337310640) 0.8 mg/dL 0.1-1.1 BILI UNCON (test code = 3542771192) 0.3 mg/dL 0.1-1.1 BILI CONJ (test code = 3878650723) 0.0 mg/dL 0-0.3 T PROTEIN (test code = 3981095602) 5.7 g/dL 6.3-8.2 L ALBUMIN (test code = 1817417834) 2.7 g/dL 3.5-5 L ALK PHOS (test code = 3262974917) 245 U/L 34-122 H ALTv (test code = 1742-6) 37 U/L 5-50 AST(SGOT) (test code = 6432490730) 43 U/L 13-40 H Lab Interpretation (test code = Abnormal 93770-4) [facility]
--- NOTE | 2023-07-15 17:48 | EDPHYS ---
Physician Documentation [facility] Name: Kiel Ngo Age: 72 yrs Sex: Male : 1950 Arrival Date: 07/15/2023 Time: 17:34 Bed 7 Private MD: ED Physician Nate Sifuentes HPI: 07/15 17:50 This 72 yrs old Male presents to ER via EMS with complaints of Hip Pain. rt 17:50 Patient presents to the ED with persistence of pain to his right hip. He has he does rt report pain to his left calf for about the past 3 days. Denies any injury. Denies other acute complaints at this time. Symptoms are chronic in nature, aching, nonradiating. No other aggravating or alleviating factors.. Historical: - Allergies: 17:37 Demerol; kc6 17:37 metformin; kc6 - PMHx: 17:37 Atrial fibrillation; chronic back pain; Chronic right leg pain; neuropathy; kc6 18:22 lymphedema; kc6 - PSHx: 17:37 back sx; PANCREAS SX; R. Ankle SX; kc6 - Immunization history:: Adult Immunizations up to date. - Social history:: Smoking status: Patient denies any tobacco usage or history of. - Family history:: not pertinent. ROS: 17:50 Constitutional: Negative for fever, chills, and weight loss, Cardiovascular: Negative rt for chest pain, palpitations, and edema, Respiratory: Negative for shortness of breath, cough, wheezing, and pleuritic chest pain, Abdomen/GI: Negative for abdominal pain, nausea, vomiting, diarrhea, and constipation, Skin: Negative for injury, rash, and discoloration, Neuro: Negative for headache, weakness, numbness, tingling, and seizure, Psych: Negative for depression, anxiety, suicide ideation, homicidal ideation, and hallucinations, 17:50 MS/extremity: Positive for pain, Negative for injury or acute deformity, Exam: 17:50 Constitutional: This is a well developed, well nourished patient who is awake, alert, rt and in no acute distress. Head/Face: Normocephalic, atraumatic. Chest/axilla: Normal chest wall appearance and motion. Nontender with no deformity. No lesions are appreciated. Cardiovascular: Regular rate and rhythm with a normal S1 and S2. No gallops, murmurs, or rubs. Normal PMI, no JVD. No pulse deficits. Respiratory: Lungs have equal breath sounds bilaterally, clear to auscultation and percussion. No rales, rhonchi or wheezes noted. No increased work of breathing, no retractions or nasal flaring. Abdomen/GI: Soft, non-tender, with normal bowel sounds. No distension or tympany. No guarding or rebound. No evidence of tenderness throughout. Skin: Warm, dry with normal turgor. Normal color with no rashes, no lesions, and no evidence of cellulitis. Neuro: Awake and alert, GCS 15, oriented to person, place, time, and situation. Cranial nerves II-XII grossly intact. Motor strength 5/5 in all extremities. Sensory grossly intact. Cerebellar exam normal. Normal gait. Psych: Awake, alert, with orientation to person, place and time. Behavior, mood, and affect are within normal limits. 17:50 Musculoskeletal/extremity: No appreciable swelling, focal areas of tenderness to the bilateral lower extremities, no overlying skin changes, pulses, motor, sensation intact. Vital Signs: 17:36 BP 105 / 82; Pulse 61; Resp 16 S; Temp 97.7(O); Pulse Ox 99% on R/A; Weight 76.66 kg kc6 (M); Height 5 ft. 11 in. (R); Pain 10/10; 17:36 Body Mass Index 23.57 (76.66 kg, 180.34 cm) [facility] 17:36 Pain Scale: Adult kc6 MDM: 17:41 Patient medically screened. rt 17:50 Differential diagnosis: Musculoskeletal pain, strain, contusion. Data reviewed: vital rt signs, nurses notes. Test considered but Not performed: Ultrasound Offered patient ultrasound to rule out DVT, he states that he does not believe that is a blood clot states that he does not wish to have an ultrasound performed.. Counseling: I had a detailed discussion with the patient and/or guardian regarding the historical points, exam findings, and any diagnostic results supporting the discharge/admit diagnosis, the need for outpatient follow up. Administered Medications: 17:59 Drug: Cyclobenzaprine PO 10 mg PO once Route: PO; [facility] 18:19 Follow up: Response: No adverse reaction [facility] 17:59 Drug: Ketorolac IM 30 mg IM once Route: IM; Site: right deltoid; kc6 18:19 Follow up: Response: No adverse reaction kc6 Disposition Summary: 07/15/23 17:48 Discharge Ordered Notes: Location: Home rt Problem: an ongoing problem rt Symptoms: have improved rt Condition: Stable rt Diagnosis - Chronic right hip pain rt - Left calf pain rt Followup: rt - With: Private Physician - When: 2 - 3 days - Reason: Discharge Instructions: - Discharge Summary Sheet rt - Musculoskeletal Pain rt Forms: - Medication Reconciliation Form rt - Thank You Letter rt - Antibiotic Education rt - Prescription Opioid Use rt - Patient Portal Instructions rt - Leadership Thank You Letter rt Prescriptions: - Cyclobenzaprine 10 mg Oral tablet - take 1 tablet ORAL route every 8 hours As needed; 15 tablet; Refills: 0, rt Product Selection Permitted Signatures: Britta Holcomb RN RN kc6 Nate Sifuentes MD MD rt Corrections: (The following items were deleted from the chart) 18:22 17:37 Allergies: Morphine; kc6 kc6
--- NOTE | 2023-07-15 17:48 | ER ---
Nurse's Notes [facility] Name: Kiel Ngo Age: 72 yrs Sex: Male : 1950 Arrival Date: 07/15/2023 Time: 17:34 Bed 7 Private MD: Diagnosis: Chronic right hip pain;Left calf pain Presentation: 07/15 17:36 Chief complaint: EMS states: pt is from home. toned out for right hip pain x3 days that kc6 has not gotten better. denies fall or injury. Coronavirus screen: At this time, the client does not indicate any symptoms associated with coronavirus-19. Ebola Screen: No symptoms or risks identified at this time. Initial Sepsis Screen: Does the patient meet any 2 criteria? No. Patient's initial sepsis screen is negative. Does the patient have a suspected source of infection? No. Patient's initial sepsis screen is negative. Risk Assessment: Do you want to hurt yourself or someone else? Patient reports no desire to harm self or others. Onset of symptoms was July 15, 2023. 17:36 Method Of Arrival: EMS: [facility] kc6 17:36 Acuity: JOZEF 4 kc6 Triage Assessment: 17:37 General: Appears in no apparent distress. comfortable, Behavior is calm, cooperative, kc6 appropriate for age. Pain: Complains of pain in right hip Pain does not radiate. Pain currently is 10 out of 10 on a pain scale. EENT: No signs and/or symptoms were reported regarding the EENT system. Neuro: Level of Consciousness is awake, alert, obeys commands, Oriented to person, place, time, situation, Appropriate for age. Cardiovascular: Capillary refill < 3 seconds. Respiratory: Airway is patent Trachea midline Respiratory effort is even, unlabored, Respiratory pattern is regular, symmetrical. GI: No signs and/or symptoms were reported involving the gastrointestinal system. : No signs and/or symptoms were reported regarding the genitourinary system. Derm: No signs and/or symptoms reported regarding the dermatologic system. Skin is intact, is healthy with good turgor, Skin is pink, warm \T\ dry. Musculoskeletal: No signs and/or symptoms reported regarding the musculoskeletal system. Circulation, motion, and sensation intact. Capillary refill < 3 seconds, Range of motion: intact in all extremities. Historical: - Allergies: 17:37 Demerol; kc6 17:37 metformin; kc6 - PMHx: 17:37 Atrial fibrillation; chronic back pain; Chronic right leg pain; neuropathy; kc6 18:22 lymphedema; kc6 - PSHx: 17:37 back sx; PANCREAS SX; R. Ankle SX; kc6 - Immunization history:: Adult Immunizations up to date. - Social history:: Smoking status: Patient denies any tobacco usage or history of. - Family history:: not pertinent. Screenin:38 [facility] ED Fall Risk Assessment (Adult) History of falling in the last 3 months, kc6 including since admission No falls in past 3 months (0 pts) Confusion or Disorientation No (0 pts) Intoxicated or Sedated No (0 pts) Impaired Gait Yes (1 pt) Mobility Assist Device Used No (0 pt) Altered Elimination No (0 pt) Score/Fall Risk Level 0 - 2 = Low Risk. Abuse screen: Denies threats or abuse. Denies injuries from another. Nutritional screening: No deficits noted. Tuberculosis screening: No symptoms or risk factors identified. Assessment: 17:39 Reassessment: please see triage assessment. kc6 18:02 Reassessment: d/c pending transport back home. EMS being contacted. kc6 Vital Signs: 17:36 BP 105 / 82; Pulse 61; Resp 16 S; Temp 97.7(O); Pulse Ox 99% on R/A; Weight 76.66 kg kc6 (M); Height 5 ft. 11 in. (R); Pain 10/10; 17:36 Body Mass Index 23.57 (76.66 kg, 180.34 cm) kc6 17:36 Pain Scale: Adult kc6 ED Course: 17:35 Patient arrived in ED. ld1 17:37 Triage completed. kc6 17:37 Arm band placed on. kc6 17:38 Nate Sifuentes MD is Attending Physician. rt 17:38 Vera Lee [facility]-C [facility]. kb 17:39 Patient has correct armband on for positive identification. Placed in gown. Bed in low kc6 position. Call light in reach. Side rails up X2. Client placed on continuous cardiac and pulse oximetry monitoring. NIBP monitoring applied. 17:41 Holcomb, Britta, RN is Primary Nurse. kc6 17:52 contacted Saman with ems, ambulance not available at this time. 2 911 calls and 2 bd ambulances at [facility] night out. 18:40 No provider procedures requiring assistance completed. Patient did not have IV access kc6 during this emergency room visit. Administered Medications: 17:59 Drug: Cyclobenzaprine PO 10 mg PO once Route: PO; kc6 18:19 Follow up: Response: No adverse reaction kc6 17:59 Drug: Ketorolac IM 30 mg IM once Route: IM; Site: right deltoid; kc6 18:19 Follow up: Response: No adverse reaction kc6 Medication: 18:40 VIS not applicable for this client. kc6 Outcome: 17:48 Discharge ordered by MD. rt 18:40 Discharged to home via ambulance, kc6 18:40 Condition: stable 18:40 Instructed on discharge instructions, follow up and referral plans. 18:40 Patient left the ED. kc6 Signatures: Vera Lee, KYLEE-C MANAGER [employer]-Karin Figueroa Lauren, RN RN ld1 Britta Holcomb RN RN kc6 Nate Sifuentes MD MD rt Corrections: (The following items were deleted from the chart) 18:22 17:37 Allergies: Morphine; kc6 kc6
[2023-07-15] MEDS ORDERED: CYCLOBENZAPRINE 10 MG TAB ONE (18:04)
[2023-07-15] MEDS ORDERED: KETOROLAC 30 MG/ML INJ ONE (18:05)
[2023-07-15 18:52] VITALS: BP 105/82; TEMP 97.7; O2SAT 99
== END 2023-07-15 18:40 | disposition home or self-care (01) ==
LOC: ER 17:34
DX: M25.551 Pain in right hip (principal); M79.662 Pain in left lower leg; Z88.5 Allergy status to narcotic agent; Z88.8 Allergy status to other drugs, medicaments and biological substances
CPT/HCPCS: 96372; 99284

== ENCOUNTER 2023-08-04 02:48 | Emergency (ER) | payer OTHER ==
[2012-02-14 07:16] VITALS: BP 146/76
[~2023-08-04 02:48] MED LIST: LORazepam 2 MG/ML VIAL ONE
[2023-08-04] MEDS ORDERED: LORazepam 2 MG/ML VIAL ONE (02:51)
--- OUTSIDE RECORDS SUMMARY | 2023-08-04 02:54 | XMS REPORT | Continuity of Care Document ---
:1950 Author Organization [facility] t Address [address] [facility] [address] [place] [address] Care Team Providers Name Role Phone CALVIN WORLEY Primary Care Physician Unavailable [id number] Attending Clinician Unavailable KELLY WASHINGTON Attending Clinician Unavailable Zion Mathew Anavella Attending Clinician Unava ilable SWEETIE STOUT Attending Clinician Unavailable Girish VILLAREAL, Sweetie Attending Clinician Calvin Worley MD Attending Clinician Ruchi Peters RN Attending Clinician Paco Lacey DO Attending Clinician Hunter VILLAREAL, Vika Fernando Attending Clinician Alvarez Rowe MD Attending Clinician ALVAREZ ROWE Attending Clinician Unavailable PACO LACEY Attending Clinician Unavailable Doctor Unassigned, Bond Attending Clinician Unavailable Wilder VILLAREAL, Angi K.H. Attending Clinician Jl Mccabe MD Attending Clinician Kelly Washington MD Attending Clinician [phone] Lisandra Gallardo MD, Mukul Anand Attending Clinician [id number] Admitting Clinician Unavailable MUKUL GALLARDO Admitting Clinician Unavailable Angle Mathew, Anav Admitting Clinician Unavailable Hunter VILLAREAL, Vika Fernando Admitting Clinician VIKA HARRISON Admitting Clinician Unavailable Nicci VILLAREAL, Mukul Anand Admitting Clinician Payers Payer Name Policy Type Policy Number Effective Date Expiration Date Tony doe MEDICARE PART A [id number] 2007 \\T\\ B 00:00:00 [employer] INDEMNITY [id number] 2016 00:00:00 MCR MCR [id number] Problems Condition Condition Condition Status Onset Resolution [...] ents Source Name Type Date Date Clinician [place] Propensi Active Rash 2019- Univers ty to [...] Exposure to Not sure University of SARS-CoV-2 [place] [facility] (event) Branch History of Chews Tobacco University of tobacco use [place] [facility] History SDOH 2020-11-17 2020-11-17 5 University o f Financial 00:00:00 00:00:00 [place] [facility] History SDOH Food 2020-11-17 2020-11-17 1 Univers ity of Worry 00:00:00 00:00:00 [place] [facility] History SDOH Food 2020-11-17 2020-11-17 1 Univers ity of Scarcity 00:00:00 00:00:00 [place] [facility] History SDOH 2020-11-17 2020-11-17 1 University o f Transport Med 00:00:00 00:00:00 [place] Medic al Branch History SDSD 2020-11-17 2020-11-17 1 University o f Transport Non-Med 00:00:00 00:00:00 [facility] edical Branch Education 2020-11-16 2020-11-16 21 [facility] of 00:00:00 00:00:00 [facility] Branch Alcohol intake 2020-11-16 2020-11-16 Ex-drinker [facility] of 00:00:00 00:00:00 (finding) [facility] Tobacco use and 2020-08-21 2020-08-21 Former user Universi ty of exposure 00:00:00 00:00:00 [facility] Tobacco Comment 2020-08-21 2020-08-21 quit 10 years Univer sity of 00:00:00 00:00:00 ago, started in [place] Med ical 2nd year of Branch college (~40 years) Alcohol Comment 2020-08-21 2020-08-21 Used to have 2-3 Uni versity of 00:00:00 00:00:00 six-packs of [place] Medica l beer daily x 20 Branch years, quit [address] [facility] 2020-08-21 2020-08-21 99 University o f Alcohol Frequency 00:00:00 00:00:00 [place] M edical Branch History SDSD 2020-08-21 2020-08-21 99 University o f Alcohol Std 00:00:00 00:00:00 [place] [facility] Drinks Branch History SDSD 2020-08-21 2020-08-21 99 University o f Alcohol Binge 00:00:00 00:00:00 [facility] [place] [facility] [place] Sex Ass[birth year] At [birth year] Universit y of 00:00:00 00:00:00 [facility] Smoking Status Start Date Stop Date Source [...] at [place] 18 bedtime. Medical Branch HYDROmorpho Yes 4mg [...] at [place] 18 bedtime. Medical Branch HYDROmorpho Yes 4mg [...] 0845, Until Discontinu ed, Routine amLODIPine Yes [id number] 10mg Take 1 Univers 10 mg 3-07 tablet by ity of tablet 00:00: mouth [place] 00 daily. Medical Branch clotrimazol Yes [id number] Apply to Univers e 1 % 3-07 face/ears, ity of topical 00:00: armpits, [place] cream 00 pannus and Medical back/any Branch other rash twice a day fluocinonid 0 Yes [id number] Apply to Univers e 0.05 % 3-07 scalp ity of solution 00:00: twice a 00 day Medical Branch triamcinolo 0 Yes [id number] Apply to Univers ne 3-07 back, ity of acetonide 00:00: armpits [place] 0.1 % cream 00 and other Med ical affected Branch areas twice daily, please mix with clotrimazo le hydrOXYzine Yes [id number] 10mg Take 1 Univers 10 mg 3-07 tablet by ity of tablet 00:00: mouth 2 (two) Medical times Branch daily. amLODIPine Yes [id number] 10mg Take 1 Univers 10 mg 3-07 tablet by ity of tablet 00:00: mouth [place] 00 daily. Medical Branch clotrimazol Yes [id number] Apply to Univers e 1 % 3-07 face/ears, ity of topical 00:00: armpits, [place] cream 00 pannus and Medical back/any Branch other rash twice a day fluocinonid 0 Yes [id number] Apply to Univers e 0.05 % 3-07 scalp ity of solution 00:00: twice a day Medical Branch triamcinolo Yes [id number] Apply to Univers ne 3-07 back, ity of acetonide 00:00: armpits [place] 0.1 % cream 00 and other Med ical affected Branch areas twice daily, please mix with clotrimazo le hydrOXYzine Yes [id number] 10mg Take 1 Univers 10 mg 3-07 tablet by ity of tablet 00:00: mouth 2 00 (two) Medical times Branch daily. amLODIPine 2020-0 Yes [id number] 10mg Take 1 Univers 10 mg 3-07 tablet by ity of tablet 00:00: mouth [place] 00 daily. Medical Branch clotrimazol 2020-0 Yes [id number] Apply to Univers e 1 % 3-07 face/ears, ity of topical 00:00: armpits, [place] cream 00 pannus and Medical back/any Branch other rash twice a day fluocinonid 2020-0 Yes [id number] Apply to Univers e 0.05 % 3-07 scalp ity of solution 00:00: twice a day Medical Branch triamcinolo 2020-0 Yes [id number] Apply to Univers ne 3-07 back, ity of acetonide 00:00: armpits [place] 0.1 % cream 00 and other Med ical affected Branch areas twice daily, please mix with clotrimazo le hydrOXYzine Yes [id number] 10mg Take 1 Univers 10 mg 3-07 tablet by ity of tablet 00:00: mouth 2 [place] 00 (two) Medical times Branch daily. amLODIPine Yes [id number] 10mg Take 1 Univers 10 mg 3-07 tablet by ity of tablet 00:00: mouth [place] 00 daily. Medical Branch clotrimazol Yes [id number] Apply to Univers e 1 % 3-07 face/ears, ity of topical 00:00: armpits, [place] cream 00 pannus and Medical back/any Branch other rash twice a day fluocinonid 2020- Yes [id number] Apply to Univers e 0.05 % 3-07 scalp ity of solution 00:00: twice a Medical Branch triamcinolo 0 Yes [id number] Apply to Univers ne 3-07 back, ity of acetonide 00:00: armpits [place] 0.1 % cream 00 and other Med ical affected Branch areas twice daily, please mix with clotrimazo le hydrOXYzine Yes [id number] 10mg Take 1 Univers 10 mg -07 tablet by ity of tablet 00:00: mouth 2 [place] (two) Medical times Branch daily. cephALEXin 2020-2020- No [id number] 500mg Take 1 Univers 500 mg -04 14- capsule by ity of capsule 00:00: 05:59 mouth [place] 00 :00 every 6 Medical (six) Branch hours for 3 days. cephALEXin 2020-0 2020- No [id number] 500mg Take 1 Univers 500 mg 3-04 14- capsule by ity of capsule 00:00: 05:59 mouth [place] 00 :00 every 6 Medical (six) Branch hours for 3 days. hydrOXYzine 2020-0 2020- No [id number] 10mg Take 1 Univers 10 mg 3-04 14-07 tablet by ity of tablet 00:00: 00:00 mouth 2 [place] 00 :00 (two) Medical times [place] daily. morpHINE Yes 4mg 4 mg, Slow [...] Yes 10mg 10 mg, IV U nivers erfen HCl 12-16 Piggyback, ity of (REGLAN) 10 18:30: Q6HPRN, [place] mg in NaCl 00 Starting Medic al 0.9% (NS) 12/16/20 Bran ch piggyback at 1230, Until Discontinu ed, 50 mL morpHINE 2020- No 4mg 4 mg, Slow Un toi injection 4 12-16-06 IV Push, ity of mg 11:15: 10:58 ONCE, 1 [place] 00 :00 dose, Sat [facility] 12/16/20 at Branch 0515, Routine lactated 2020- No 1000mL at 125 Univ ers ringers IV 12-16 03-06 mL/hr, ity of infusion 01:00: 00:16 1,000 mL, [place] 1,000 mL 00 :00 IV Medical Infusion, [place] ONCE, 1 dose, 12/15/20 at 1900, Routine iohexol 2020- No 100mL 100 mL, Unive rs (OMNIPAQUE 12-15-05 Intravenou it y of 350 22:24: 22:24 s, ONCE, 1 [place] BULK-100 00 :00 dose, Fri Medica l mL) 12/15/20 at [place] injection 1645, 100 mL Routine cephALEXin 2020- [...] NaCl 0.9% 2020- No 500mL at 999 [facility] ers (NS) bolus 12-15-05 mL/hr, 500 it y of infusion 16:00: 15:26 mL, IV [place] 500 mL 00 :00 Piggyback, Medical ONCE, 1 Branch dose, Fri12/15/20 at 1000, STAT HYDROmorpho Yes 4mg 4 mg, [facility] rs ne 05 Oral, BID, ity of (DILAUDID) 15:30: First dose [place] tablet 4 mg 00 (after Medica l last Branch modificati on) on Fri12/15/20 at 0930, Until Discontinu ed, Routine amLODIPine 2020- No [id number] 10mg Take 1 Univers 10 mg 12-15-07 tablet by ity of tablet 00:00: 00:00 mouth [place] 00 :00 daily. Medical Branch HYDROmorpho 2020- No 1mg 1 mg, [facility] ers ne 12-14 03-05 Oral, ity of (DILAUDID) 17:35: 15:18 Q6HPRN, [place] tablet 1 mg 30 :06 Starting Medi [facility] 12/14/20 Branch at 1135, Until Fri12/15/20 at 0918, Routine, Pain (scale 7-10) hydrOXYzine Yes 10mg 10 mg, [facility] ers (ATARAX) 3-04 Oral, BID, ity o f tablet 10 17:30: First dose [place] mg 00 on [facility] 12/14/20 at Branch 1130, Until Discontinu ed, Routine lisinopriL Yes 5mg 5 mg, Univer s (PRINIVIL,Z 3-04 Oral, ity of ESTRIL) 17:30: DAILY, [place] tablet 5 mg 00 First dose Me dical on [facility] Branch 3/4/21 at 1130, Until Discontinu ed, Routine triamcinolo 2020- No [id number] Apply to Univers ne 12-14 back, ity of acetonide 00:00: 00:00 armpits [place] 0.1 % cream 00 :00 and other Med ical affected Branch areas twice daily, please mix with clotrimazo le clotrimazol 2020- No [id number] Apply to Univers e 1 % 12-14 face/ears, ity of topical 00:00: 00:00 armpits, [place] cream 00 :00 pannus and Medical back/any Branch other rash twice a day fluocinonid 2020- No [id number] Apply to Univers e 0.05 % 12-14 scalp ity of solution 00:00: 00:00 twice a [place] 00 :00 day Medical Branch hydrOXYzine 2020- No [id number] 10mg Take 1 Univers 10 mg 12-14 [...] IV Push, ity of (PF)) 10:07: Q6HPRN, [place] injection 4 28 Starting Medi jose c mg Fri12/13/20 Branch at 0407, Until Discontinu ed, Routine, Nausea and Vomiting (N/V) ondansetron 2020- No 4mg 4 mg, Slow Univers (ZOFRAN 3-03 IV Push, ity of (PF)) 04:55: 05:44 ONCE, 1 [place] injection 4 00 :00 dose, [facility] ical mg 12/12/20 at Branch 2300, Routine traMADoL 2020- No 50mg 50 mg, Univer s (ULTRAM) 12-13 03-03 Oral, ity of tablet 50 03:45: 03:34 ONCE, 1 [place] mg 00 :00 dose, [facility] 12/12/20 at Branch 2145, Routine insulin Yes 15U 15 Units, [facility] rs glargine 12-12 Subcutaneo ity o f (LANTUS 15:00: us, DAILY, [place] U-100) 00 First dose Medical injection on [facility] 15 Units 12/12/20 at 0900, Until Discontinu ed hydrOXYzine 2020- No 10mg 10 mg, Uni vers (ATARAX) 12-12 03-02 Oral, ity of tablet 10 08:15: 07:33 ONCE, 1 [place] mg 00 :00 dose, [facility] 12/12/20 at Branch 0215, Routine mirtazapine Yes 7.5mg 7.5 mg, Un toi (REMERON) 3-02 Oral, QHS, ity of tablet 7.5 03:00: First dose [place] mg 00 [facility] 12/11/20 at Branch 2100, Until Discontinu ed, [...] of 1,000 mg in 19:00: 17:35 Piggyback, [place] NaCl 0.9% 00 :26 Q8H ABX, Medica l (NS) 50 mL First dose Bra nch MINI-BAG on 12/11/20 at 1300, Until Discontinu ed, 50 mL
R jose armando for Anti-Infec tive: Documented Infection< br>Documen ronan Infection Site: Skin / Soft Tissue
Duration of Therapy: 7 days Sliding Yes Subcutaneo [facility] ers Scale 12-11 us, TID ity of Insulin - 18:00: MEALS+HS, [place] as Lispro 00 First dose Medical (HumaLOG) + on Fri Branch Fsbg 12/11/20 at Testing 1200, Until Discontinu ed, Routine insulin Yes 5U 5 Units, [facility] lispro 12-11 Subcutaneo ity of (human) 18:00: us, TID [place] (HumaLOG 00 MEALS, Medical U-100) First dose Branch injection 5 on Mon Units 12/11/20 at 1200, Until Discontinu ed Polyethylen Yes 17g 17 g, [facility] rs e Glycol 12-11 Oral, ity of 3350 17:47: [id number], [place] (MIRALAX) 05 Starting Medica l powder [...] 0630, STAT piperacilli No 3.375g 3.375 g, [facility] n-tazobacta 12-11 IV ity of m (ZOSYN) 12:00: 17:48 Piggyback, [place] injection 00 :24 Q6H, First Medi jose c 3.375 g dose on Branch Fri12/11/20 at 0600, Until Discontinu ed, KAHLIL
Re ason for Anti-Infec tive: Empiric Therapy for Suspected Infection< br>Empiric Therapy Site: Skin / Soft tissue
Duration of therapy: 72 hours sennosides- Yes [id number] 1{tbl} Take 1 [facility] docusate 2-09 tablet by ity of sodium 00:00: mouth 2 [place] 8.6-50 mg 00 (two) Medical per tablet times Branch daily. hydrocortis Yes [id number] Apply to [facility] one 2.5 % 11-21 affected ity of cream 00:00: area(s) 2 [place] 00 (two) Medical times Branch daily. blood sugar Yes [id number] Use to [facility] diagnostic 2- check ity of (FREESTYLE 00:00: blood [place] LITE 00 glucose Medical STRIPS) 4-5 times Branch strip daily. Polyethylen 2020- Yes [id number] 17g Take 1 Univers e Glycol 2-09 Packet by ity of 3350 17 00:00: mouth [place] gram powder 00 every 24 Medi jose c (twenty-fo Branch ur) hours as needed for Constipati on. sennosides- Yes [id number] 1{tbl} Take 1 Univers docusate 2-09 tablet by ity of sodium 00:00: mouth 2 [place] 8.6-50 mg 00 (two) Medical per tablet times Branch daily. hydrocortis 2020- Yes [id number] Apply to Univers one 2.5 % 2-09 affected ity of cream 00:00: area(s) 2 [place] 00 (two) Medical times Branch daily. blood sugar Yes [id number] Use to Univers diagnostic 2-09 check ity of (FREESTYLE 00:00: blood [place] LITE 00 glucose Medical STRIPS) 4-5 times Branch strip daily. Polyethylen Yes [id number] 17g Take 1 Univers e Glycol 2-09 Packet by ity of 3350 17 00:00: mouth [place] gram powder 00 every 24 Medi jose c (twenty-fo Branch ur) hours as needed for Constipati on. sennosides- Yes [id number] 1{tbl} Take 1 Univers docusate 2-09 tablet by ity of sodium 00:00: mouth 2 [place] 8.6-50 mg 00 (two) Medical per tablet times Branch daily. hydrocortis 2020- Yes [id number] Apply to Univers one 2.5 % 2-09 affected ity of cream 00:00: area(s) 2 [place] 00 (two) Medical times Branch daily. blood sugar 2020-0 Yes [id number] Use to Univers diagnostic 209 check ity of (FREESTYLE 00:00: blood [place] LITE 00 glucose Medical STRIPS) 4-5 times Branch strip daily. Polyethylen 2020-0 Yes [id number] 17g Take 1 Univers e Glycol 2-09 Packet by ity of 3350 17 00:00: mouth [place] gram powder 00 every 24 Medi jose c (twenty-fo Branch ur) hours as needed for Constipati on. sennosides- 2020- Yes [id number] 1{tbl} Take 1 Univers docusate 2-09 tablet by ity of sodium 00:00: mouth 2 [place] 8.6-50 mg 00 (two) Medical per tablet times Branch daily. hydrocortis Yes [id number] Apply to [facility] one 2.5 % 11-21 affected ity of cream 00:00: area(s) 2 [place] 00 (two) Medical times Branch daily. blood sugar Yes [id number] Use to [facility] diagnostic 11-21 check ity of (FREESTYLE 00:00: blood [place] LITE 00 glucose Medical STRIPS) 4-5 times Branch strip daily. Polyethylen Yes [id number] 17g Take 1 Univers e Glycol 11-21 Packet by ity of 3350 17 00:00: mouth [place] gram powder 00 every 24 Medi jose c (twenty-fo Branch ur) hours as needed for Constipati on. Insulin 2020- No [id number] 15U inject 15 Univers Glargine 11-21 Units ity of (LANTUS 00:00: 05:59 under the [employer] SOLOSTAR 00 :00 skin every Medic al U-100 morning Branch INSULIN) for 30 100 unit/mL days. (3 mL) injection venlafaxine 2020- No [id number] 150mg Take 1 Univers XR 150 mg 11-21 capsule by ity of 24 hr 00:00: 05:59 mouth 3 [place] capsule 00 :00 (three) Medical times Branch daily for 30 days. Insulin 2020- No [id number] 15U inject 15 Univers Glargine 11-21-12 Units ity of (LANTUS 00:00: 05:59 under the [employer] SOLOSTAR 00 :00 skin every Medic al U-100 morning Branch INSULIN) for 30 100 unit/mL days. (3 mL) injection venlafaxine 2020- No [id number] 150mg Take 1 Univers XR 150 mg 11-21 capsule by ity of 24 hr 00:00: 05:59 mouth 3 [place] capsule 00 :00 (three) Medical times Branch daily for 30 days. triamcinolo 2020- No [id number] Apply to [facility] ne 11-21-04 area(s) 2 ity of acetonide 00:00: 00:00 (two) [place] 0.1 % cream 00 :00 times Medical daily. Branch cephALEXin 2020- No [id number] 1000mg Take 2 Univers 500 mg 11-21 capsules ity of capsule 00:00: 00:00 by mouth 3 [place] 00 :00 (three) Medical times Branch daily. doxycycline 2020- No [id number] 100mg Take 1 Univers hyclate 100 11-21 capsule by i ty of mg capsule 00:00: 00:00 mouth [place] 00 :00 every 12 Medical (twelve) Branch hours. lactobacill 2020- No [id number] 1{tbl} Take 1 Univers us 11-21 tablet by ity of acidophilus 00:00: 00:00 mouth 2 [place] 25 million 00 :00 (two) Medical cell -100 times Branch mg captab daily. bisacodyL 2020- No [id number] 10mg Insert 1 Univers 10 mg 11-21 Suppositor ity of suppository 00:00: 00:00 y into [place] 00 :00 rectum at Medical bedtime as Branch needed for Constipati on. ALPRAZolam 2020- No [id number] .25mg Take 1 Univers (XANAX) 11-21 tablet by ity of 0.25 mg 00:00: 00:00 mouth 2 [place] tablet 00 :00 (two) Medical times Branch daily. hydrOXYzine 2020- No [id number] 20mg Take 2 Univers 10 mg 11-21 [...] 34 :00 Medical Branch hydrocortis 2019-10 Yes [id number] Apply to Univers one 2.5 % 1-11 affected ity of cream 00:00: area(s) 2 [place] 00 (two) Medical times Branch daily. hydrOXYzine 2019-10 Yes [id number] 20mg Take 2 Univers 10 mg 1-11 tablets by ity of tablet 00:00: mouth [place] 00 every 8 Medical (eight) Branch hours as needed for Itching or Anxiety. Polyethylen 2019-10 Yes [id number] 17g Take 1 Univers e Glycol 1-11 Packet by ity of 3350 17 00:00: mouth [place] gram powder 00 every 24 Medi jose c (twenty-fo Branch ur) hours as needed for Constipati on. hydrocortis 2019-10 Yes [id number] Apply to Univers one 2.5 % 1-11 affected ity of cream 00:00: area(s) 2 [place] 00 (two) Medical times Branch daily. hydrOXYzine 2019- Yes [id number] 20mg Take 2 Univers 10 mg 1-11 tablets by ity of tablet 00:00: mouth [place] 00 every 8 Medical (eight) Branch hours as needed for Itching or Anxiety. Polyethylen 2019- Yes [id number] 17g Take 1 Univers e Glycol 1-11 Packet by ity of 3350 17 00:00: mouth [place] gram powder 00 every 24 Medi jose c (twenty-fo Branch ur) hours as needed for Constipati on. hydrocortis 2019- Yes [id number] Apply to Univers one 2.5 % 1-11 affected ity of cream 00:00: area(s) 2 [place] (two) Medical times Branch daily. hydrOXYzine 2019- Yes [id number] 20mg Take 2 Univers 10 mg 1-11 tablets by ity of tablet 00:00: mouth [place] 00 every 8 Medical (eight) Branch hours as needed for Itching or Anxiety. Polyethylen 2019- Yes [id number] 17g Take 1 Univers e Glycol 1-11 Packet by ity of 3350 17 00:00: mouth [place] gram powder 00 every 24 Medi jose c (twenty-fo Branch ur) hours as needed for Constipati on. hydrocortis 2019-10 Yes [id number] Apply to Univers one 2.5 % 1-11 affected ity of cream 00:00: area(s) 2 [place] (two) Medical times Branch daily. hydrOXYzine 2019- Yes [id number] 20mg Take 2 Univers 10 mg 1-11 tablets by ity of tablet 00:00: mouth [place] 00 every 8 Medical (eight) Branch hours as needed for Itching or Anxiety. Polyethylen 2019- Yes [id number] 17g Take 1 Univers e Glycol 1-11 Packet by ity of 3350 17 00:00: mouth [place] gram powder 00 every 24 Medi jose c (twenty-fo Branch ur) hours as needed for Constipati on. hydrocortis 2019-10 Yes [id number] Apply to Univers one 2.5 % 1-11 affected ity of cream 00:00: area(s) 2 [place] 00 (two) Medical times Branch daily. hydrOXYzine 2019-10 Yes [id number] 20mg Take 2 Univers 10 mg 1-11 tablets by ity of tablet 00:00: mouth [place] 00 every 8 Medical (eight) Branch hours as needed for Itching or Anxiety. Polyethylen 2020- Yes [id number] 17g Take 1 Univers e Glycol 1-11 Packet by ity of 3350 17 00:00: mouth [place] gram powder 00 every 24 Medi jose c (twenty-fo Branch ur) hours as needed for Constipati on. hydrocortis 2019- Yes [id number] Apply to Univers one 2.5 % 1-11 affected ity of cream 00:00: area(s) 2 [place] 00 (two) Medical times Branch daily. hydrOXYzine 2019- Yes [id number] 20mg Take 2 Univers 10 mg 1-11 tablets by ity of tablet 00:00: mouth [place] 00 every 8 Medical (eight) Branch hours as needed for Itching or Anxiety. Polyethylen 2019- Yes [id number] 17g Take 1 Univers e Glycol 1-11 Packet by ity of 3350 17 00:00: mouth [place] gram powder 00 every 24 Medi jose c (twenty-fo Branch ur) hours as needed for Constipati on. hydrocortis 2019-10 Yes [id number] Apply to Univers one 2.5 % 1-11 affected ity of cream 00:00: area(s) 2 [place] 00 (two) Medical times Branch daily. hydrOXYzine 2019-10 Yes [id number] 20mg Take 2 Univers 10 mg 1-11 tablets by ity of tablet 00:00: mouth [place] 00 every 8 Medical (eight) Branch hours as needed for Itching or Anxiety. Polyethylen 2019- Yes [id number] 17g Take 1 Univers e Glycol 1-11 Packet by ity of 3350 17 00:00: mouth [place] gram powder 00 every 24 Medi jose c (twenty-fo Branch ur) hours as needed for Constipati on. triamcinolo 2019- 2020- No [id number] Apply to [facility] 10-23 area(s) 2 ity of acetonide 00:00: 05:59 (two) [place] 0.1 % cream 00 :00 times Medical daily for Branch 14 days. triamcinolo 2019- 2020- No [id number] Apply to [facility] 10-23 area(s) 2 ity of acetonide 00:00: 05:59 (two) [place] 0.1 % cream 00 :00 times Medical daily for Branch 14 days. triamcinolo 2019- 2020- No [id number] Apply to [facility] ne 10-23 area(s) 2 ity of acetonide 00:00: 05:59 (two) [place] 0.1 % cream 00 :00 times Medical daily for Branch 14 days. KCL 2019- 2020- No 40meq 40 mEq, Univers (KLOR-CON 1-10 11-10 Oral, ONCE ity of M20) tablet 16:15: 16:23 NOW, 1 [place] 40 mEq 00 :00 dose, [facility] 08/22/20 Branch at 1015, Routine HYDROmorpho 2019-10 Yes 1mg 1 mg, Unive rs ne 1-10 Oral, ity of (DILAUDID) 15:07: Q6HPRN, [place] tablet 1 mg 53 Starting [facility] 08/22/20 at 0907, Until Discontinu ed, Routine, Pain (scale 7-10) hydrocortis 2019-10 Yes Topical Uni vers one 2.5 % 1-10 (Apply To ity o f cream 02:00: Affected [place] 00 Areas), Medical BID, First Branch dose on [facility] 08/21/20 at 2000, Until Discontinu ed, Routine triamcinolo 2019-10 Yes Topical, Un toi ne 1-10 BID, First ity of acetonide 02:00: dose on [place] (TRIDERM) [facility] Medical 0.1 % cream 08/21/20 [...] 09 Oral, ity of sodium 15:00: DAILY, [place] (SENOKOT-S) 00 First dose Me dical 8.6-50 mg on [facility] per tablet 08/21/20 at 1 tablet 0900, Until Discontinu ed, Routine hydrocortis 2019-10 2020- No Topical Un toi one 1 % 10-21- (Apply To ity of cream 15:00: 22:54 Affected [place] 00 :48 Areas), Medical DAILY, Branch First dose on [facility] 08/21/20 at 0900, Until Discontinu ed, Routine venlafaxine 2019-10 Yes 150mg 150 mg, Un toi XR (EFFEXOR 09 Oral, TID, it y of XR) 24 hr 14:00: First dose [place] capsule 150 00 on [facility] Medica l mg 08/21/20 at [...] 25 59 :43 Starting Medica l mg [facility] 08/21/20 at 0656, Until [facility] 08/21/20 at 1139, Routine, Itching, Mild Rash, Congestion /Allergies , alternate with hydroxyzin e hydrOXYzine 2019-10- No 10mg 10 mg, Uni vers (ATARAX) 10-21 Oral, ity of tablet 10 10:20: 12:57 Q6HPRN, [place] mg 22 :12 Starting Medical [facility] 08/21/20 at 0420, Until [facility] 08/21/20 at 0657, Routine, Itching, [...] [facility] 00 :00 08/21/20 at [facility] 0330, Branch Routine Polyethylen 2019-10 Yes 17g 17 g, Unive rs e Glycol 10-21 Oral, ity of 3350 08:29: [id number], [place] (MIRALAX) 09 Starting Medica l powder 17 g [facility] 08/21/20 at 0229, Until Discontinu ed, [...] (scale 1-3) sotalol 2019-10- No [facility] 10-21 mouth ity of 240 mg 07:43: 00:00 every 12 [place] tablet 30 :00 (twelve) Medical hours. Branch blood sugar Yes Use to [facility] ers diagnostic 4-25 check ity of (FREESTYLE 00:00: blood [place] LITE 00 glucose Medical STRIPS) 4-5 times Branch strip daily. blood sugar Yes Use to [facility] ers diagnostic 4-25 check ity of (FREESTYLE 00:00: blood [place] LITE 00 glucose Medical STRIPS) 4-5 times Branch strip daily. blood sugar Yes Use to [facility] ers diagnostic 4-25 check ity of (FREESTYLE 00:00: blood [place] LITE 00 glucose Medical STRIPS) 4-5 times Branch strip daily. blood sugar Yes Use to [facility] ers diagnostic 4-25 check ity of (FREESTYLE 00:00: blood [place] LITE 00 glucose Medical STRIPS) 4-5 times Branch strip daily. blood sugar Yes Use to [facility] ers diagnostic 4-25 check ity of (FREESTYLE 00:00: blood [place] LITE 00 glucose Medical STRIPS) 4-5 times Branch strip daily. blood sugar Yes Use to [facility] ers diagnostic -25 check ity of (FREESTYLE 00:00: blood [place] LITE 00 glucose Medical STRIPS) 4-5 times Branch strip daily. blood sugar Yes Use to [facility] ers diagnostic -25 check ity of (FREESTYLE 00:00: blood [place] LITE 00 glucose Medical STRIPS) 4-5 times Branch strip daily. Vital Signs Vital Name Observation Time Observation Value Comments Source Systolic blood 2021-08-22 13:00:00 148 mm[Hg] [facility] Diastolic blood 2021-08-22 13:00:00 84 mm[Hg] Unive rsity [facility] Heart rate 2021-08-22 13:00:00 103 /min [facility] Respiratory rate 2021-08-22 13:00:00 18 /min [facility] Oxygen saturation in 2021-08-22 13:00:00 95 /min [facility] Arterial blood by [facility] Pulse oximetry Branch Body temperature 2021-08-22 12:22:00 36.72 [place] [facility] Systolic blood 2020-12-17 18:35:00 139 mm[Hg] [facility] Diastolic blood 2020-12-17 18:35:00 87 mm[Hg] [facility] Heart rate 2020-12-17 18:35:00 110 /min [facility] Body temperature 2020-12-17 18:35:00 37.72 [place] [facility] Respiratory rate 2020-12-17 18:35:00 18 /min [facility] O[facility] saturation in 2020-12-17 18:35:00 93 /min University of Arterial blood by [facility] jose c Pulse oximetry Branch Body [...] 93 /min University of Arterial blood by [facility] Pulse oximetry Branch Body height 2020-12-12 [...] 93 /min University of Arterial blood by [facility] Pulse oximetry Branch Body weight 2020-08-21 07:20:00 104.962 kg [facility] [place] [facility] BMI 2020-08-21 07:20:00 32.27 kg/m2 [facility] [place] [facility] Systolic blood 2020-08-23 19:27:00 140 mm[Hg] Univer sity of pressure [facility] Diastolic blood 2020-08-23 19:27:00 79 mm[Hg] [facility] Heart rate 2020-08-23 19:27:00 99 /min [facility] Body temperature 2020-08-23 19:27:00 36 [place] [facility] Respiratory rate 2020-08-23 19:27:00 18 /min Univ [facility] Oxygen saturation in 2020-08-23 19:27:00 93 /min [facility] Arterial blood by [facility] Pulse oximetry [place] Body weight 2020-08-21 07:20:00 104.962 kg [facility] BMI 2020-08-21 07:20:00 32.27 kg/m2 [facility] Procedures Procedure Date / Time Performing Clinician Source Performed POCT GLUCOSE (AUTOMATED) 2020-12-17 15:42:00 Favio Harrisonal G Uni [facility] BASIC METABOLIC PANEL 2020-12-17 10:45:00 Paul Bean [facility] (NA, K, CL, CO2, GLUCOSE, Kaley Medica l Branch BUN, CREATININE, CA) CBC WITH DIFF 2020-12-17 10:45:00 Paul Bean [facility] POCT GLUCOSE (AUTOMATED) 2020-12-17 02:36:00 Vika Harrison G Uni [facility] XR TIBIA FIBULA 2 VW LEFT 2020-12-16 23:38:00 [facility] PO[facility] (AUTOMATED) 2020-12-16 23:20:00 Harrison, [facility]al [facility] PO[facility] GLUCOSE (AUTOMATED) 2020-12-16 20:10:00 Hunter [facility]al [facility] POCT GLUCOSE (AUTOMATED) 2020-12-16 14:43:00 Hunter Premal [facility] BASIC METABOLIC PANEL 2020-12-16 13:51:00 Paul Bean [facility] (NA, K, CL, CO2, GLUCOSE, [place] BUN, CREATININE, CA) CBC WITH DIFF 2020-12-16 13:51:00 Paul Bean [facility] POCT GLUCOSE (AUTOMATED) 2020-12-16 04:00:00 Harrison, Premal G Uni versity of [facility] POCT GLUCOSE (AUTOMATED) 2020-12-16 00:14:00 Harrison, Premal G Uni versity of [facility] CT CHEST PULMONARY 2020-12-15 22:29:38 Paul Bean [facility] ANGIOGRAM [facility] POCT GLUCOSE (AUTOMATED) 2020-12-15 19:26:00 Harrison, Premal G Uni versity of [facility] POCT GLUCOSE (AUTOMATED) 2020-12-15 15:13:00 Harrison, Premal [facility] HB ECG ROUTINE & RHYTHM 2020-12-15 14:25:27 Cailin Romo [facility] Branch MAGNESIUM 2020-12-15 12:01:00 Paul Bean Sivakumar [facility] BASIC METABOLIC PANEL 2020-12-15 12:01:00 Paul Bean [facility] (NA, K, CL, CO2, GLUCOSE, [facility] BUN, CREATININE, CA) CBC WITH DIFF 2020-12-15 12:01:00 Paul Bean Sivakumar [facility] POCT GLUCOSE (AUTOMATED) 2020-12-15 03:57:00 Harrison, Premal G Uni versity of [facility] POCT GLUCOSE (AUTOMATED) 2020-12-14 23:31:00 Harrison, Premal G Uni versity of [facility] POCT GLUCOSE (AUTOMATED) 2020-12-14 19:08:00 Harrison, Premal G Uni versity of [facility] POCT GLUCOSE (AUTOMATED) 2020-12-14 15:11:00 Harrison, Premal G Uni versity of [facility] POCT GLUCOSE (AUTOMATED) 2020-12-14 02:36:00 Harrison, Premal G Uni versity of [facility] POCT GLUCOSE (AUTOMATED) 2020-12-13 23:32:00 Harrison, Premal G Uni versity of [facility] POCT GLUCOSE (AUTOMATED) 2020-12-13 18:08:00 Harrison, Premal G Uni versity of [facility] BASIC METABOLIC PANEL 2020-12-13 15:39:00 Paul Bean [facility] (NA, K, CL, CO2, GLUCOSE, [facility] BUN, CREATININE, CA) CBC WITH DIFF 2020-12-13 15:39:00 Paul Bean [facility] POCT GLUCOSE (AUTOMATED) 2020-12-13 14:06:00 Harrison, Premal G Uni versity of [facility] POCT GLUCOSE (AUTOMATED) 2020-12-13 03:07:00 Harrison, Premal G Uni versity of [facility] POCT GLUCOSE (AUTOMATED) 2020-12-12 23:52:00 Harrison, Premal G Uni versity of [facility] POCT GLUCOSE (AUTOMATED) 2020-12-12 20:28:00 Harrison, Premal G Uni versity of [facility] POCT GLUCOSE (AUTOMATED) 2020-12-12 19:14:00 Harrison, Premal G Uni versity of [facility] POCT GLUCOSE (AUTOMATED) 2020-12-12 14:33:00 Harrison, Premal G Uni versity of [facility] MAGNESIUM 2020-12-12 08:58:00 Paul Bean [facility] BASIC METABOLIC PANEL 2020-12-12 08:58:00 Paul Bean [facility] (NA, K, CL, CO2, GLUCOSE, [facility] Branch BUN, CREATININE, CA) CBC WITH DIFF 2020-12-12 08:58:00 Paul Bean [facility] US ABDOMEN LIMITED 2020-12-12 06:32:26 Paul Bean [facility] POCT GLUCOSE (AUTOMATED) 2020-12-12 03:40:00 Harrison, Premal G Uni versity of [facility] POCT GLUCOSE (AUTOMATED) 2020-12-12 00:06:00 Hrarison, Premal G [facility] [place] [facility] XR HIPS 3 VW LEFT 2020-12-11 20:20:00 Paul Bean Sivakumar [facility] HB ECG ROUTINE & RHYTHM 2020-12-11 20:04:06 Demetrius [facility] [place] [facility] VITAMIN B6, PLASMA 2020-12-11 19:17:00 Paul Bean Sivakumar [facility] POCT GLUCOSE (AUTOMATED) 2020-12-11 19:06:00 Vika Harrisno [facility] CREATINE KINASE 2020-12-11 18:22:00 Parvez [facility] VITAMIN B12, LEVEL 2020-12-11 18:22:00 Vikas [facility] FOLATE 2020-12-11 18:22:00 Vikas [facility] THYROID STIMULATING 2020-12-11 18:22:00 Demetrius [facility] HORMONE [facility] PROCALCITONIN 2020-12-11 18:22:00 Viaks [facility] VITAMIN B1 (THIAMINE), 2020-12-11 18:22:00 [facility] [place] [facility] HEAD WO CONTRAST 2020-12-11 14:07:35 Sweetie Stout [facility] URINALYSIS 2020-12-11 13:44:00 Singer [facility] URINE CULTURE 2020-12-11 13:44:00 Singer [facility] COVID-19 (ID NOW RAPID 2020-12-11 12:31:00 Paco Lacey [facility] TESTING) Medical Branch LAB ONLY COVID 2020-12-11 12:31:00 Singer [facility] [place] INTERPRETATION [facility] XR CHEST 1 VW 2020-12-11 12:07:24 Singer [facility] BLOOD CULTURE SCREEN 2020-12-11 12:02:00 Paco Lacey [facility] MAGNESIUM 2020-12-11 12:02:00 [facility] FERR[facility] SERUM 2020-12-11 12:02:00 Paul Bean [facility] COMP. METABOLIC PANEL 2020-12-11 12:02:00 Singer [facility] ([id number]) Medical [place] CBC WITH DIFF 2020-12-11 12:02:00 Singer [facility] LACTIC ACID WHOLE BLOOD 2020-12-11 12:02:00 Singer Paco [facility] BLOOD CULTURE SCREEN 2020-12-11 11:42:00 Singer Paco [facility] EMERGENCY SERVICES 2020-12-11 06:01:00 Doctor Unassnadya, [facility] AGREEMENTS AND [place] [facility] [place] AUTHORIZATIONS HOSPITAL ADMISSION 2020-12-11 06:01:00 Doctor Unaowen, [facility] Name Medical [place] HOME HEALTH - OTHER 2020-11-11 06:01:00 Doctor Tabitha [facility] [place] HOME HEALTH - OTHER 2020-10-30 06:01:00 Doctor Unaowen [facility] Name Medical [place] EXTERNAL PROVIDER RECORDS 2020-09-01 06:01:00 Doctor Tabitha, [facility] Name [facility] POCT GLUCOSE (AUTOMATED) 2020-08-23 18:09:00 Kelly Washington [facility] POCT GLUCOSE (AUTOMATED) 2020-08-23 14:14:00 Kelly [place] [facility] MAGNESIUM 2020-08-23 11:18:00 Ramya [facility] BASIC METABOLIC PANEL 2020-08-23 11:18:00 [place] [facility] (NA, K, CL, CO2, GLUCOSE, Medica l Branch BUN, CREATININE, CA) CBC WITH DIFF 2020-08-23 11:18:00 Ramya [facility] POCT GLUCOSE (AUTOMATED) 2020-08-23 10:21:00 Kelly Washington [facility] POCT GLUCOSE (AUTOMATED) 2020-08-23 05:55:00 Kelly Washington [facility] POCT GLUCOSE (AUTOMATED) 2020-08-23 03:00:00 Kelly [place] Jada versity of [facility] POCT GLUCOSE (AUTOMATED) 2020-08-22 23:38:00 Kelly [place] Jada versity of [facility] POCT GLUCOSE (AUTOMATED) 2020-08-22 19:04:00 Kelly [place] Jada versity of [facility] POCT GLUCOSE (AUTOMATED) 2020-08-22 13:49:00 Kelly Washington Jada versity [facility] MAGNESIUM 2020-08-22 10:10:00 Ramya, [facility] HEPATIC FUNCTION PANEL 2020-08-22 10:10:00 Aguila Melchor [facility] ([id number]) (ALB,T.PRO,BILI Medical Branch T,BU/BC,ALT,AST,ALK PHOS) BASIC METABOLIC PANEL 2020-08-22 10:10:00 [place] [facility] (NA, K, CL, CO2, GLUCOSE, Medica l Branch BUN, CREATININE, CA) LIPID PANEL ([id number])(TOTAL 2020-08-22 10:10:00 Ramya, [facility] CHOLESTEROL, Medical [place] TRIGLYCERIDES, HDL) CBC WITH DIFF 2020-08-22 10:10:00 [place], [facility] POCT GLUCOSE (AUTOMATED) 2020-08-22 10:10:00 [facility] (AUTOM[facility]) 2020-08-22 07:13:00 Kelly [place] versity of [facility] POCT GLUCOSE (AUTOMATED) 2020-08-22 02:24:00 Kelly [place] versity of [facility] POCT GLUCOSE (AUTOMATED) 2020-08-21 23:40:00 Kelly [place] versity of [facility] POCT GLUCOSE (AUTOMATED) 2020-08-21 18:10:00 Kelly [place] versity of [facility] POCT GLUCOSE (AUTOMATED) 2020-08-21 13:39:00 Kelly Washington [facility] ETHANOL 2020-08-21 12:35:00 [facility] ACTIV[facility] PARTIAL 2020-08-21 12:35:[address] [facility] GALV ONLY - SYPHILIS 2020-08-21 12:35:00 Padmini [facility] IGG/IGM [facility] LACTATE DEHYDROGENASE 2020-08-21 10:09:00 Ramya, [facility] GALV/CLC ONLY - URINE 2020-08-21 10:09:00 Richie [facility] DRUG (IMMUNOASSAY) - 4 ER Medica l Branch PANEL URINALYSIS 2020-08-21 10:09:00 [place], [facility] URINE CULTURE 2020-08-21 10:09:00 [place], [facility] PROCALCITONIN 2020-08-21 10:09:00 Ramya, [facility] POCT GLUCOSE (AUTOMATED) 2020-08-21 09:41:00 Kelly [facility] PROTHROMBIN TIME / INR 2020-08-21 08:32:00 Ramya, [facility] ACTIVATED PARTIAL 2020-08-21 08:32:00 Ramya, [facility] C-REACTIVE PROTEIN 2020-08-21 08:31:00 [place], [facility] HEPATIC FUNCTION PANEL 2020-08-21 08:31:00 Ramya, [facility] ([id number]) (ALB,T.PRO,BILI Medical Branch T,BU/BC,ALT,AST,ALK PHOS) BASIC METABOLIC PANEL 2020-08-21 08:31:00 [place], [facility] (NA, K, CL, CO2, GLUCOSE, Medica l Branch BUN, CREATININE, CA) SEDIMENTATION RATE 2020-08-21 08:31:00 [place], [facility] CBC WITH DIFF 2020-08-21 08:31:00 Ramya, [facility] GLYCOSYLATED HEMOGLOBIN 2020-08-21 08:31:00 [place], [facility] (A1C) Medical [place] HIV 1/2 AG-AB WITH REFLEX 2020-08-21 08:31:00 [facility] COVID-19 (ID NOW RAPID 2020-08-21 08:20:00 Haily Bui [facility] TESTING) Medical Branch LAB ONLY COVID 2020-08-21 08:20:00 [place] [facility] [place] INTERPRETATION [facility] Branch Encounters Start End Encounter Admission Attending Care Care Encounter Source Date/Time Date/Time Type Type Clinicians Facility Department ID 2022-11-13 Outpatient 3 [id number] ENCPL REF [id number] [facility] 11:39:58 0201 Health Rehabil itation Peariftikhar dang 2020-08-21 Inpatient U [place], NVTONG KVNG [id number] Univers 01:07:00 KELLY cantu [facility] 2022-11-14 2022-11-28 Inpatient 3 [facility] ENCPL DELVIS [id number] [facility] 20:40:00 13:29:00 [facility]aggy [facility] Re[facility] Peariftikhar d 2021-08-22 2021-08-22 Emergency X [facility] ERT [id number] Univers 06:21:00 08:02:00 SWEETIE cantu [facility] 2021-08-22 2021-08-22 Emergency [facility] [id number] Univers 06:21:00 08:02:00 Sweetie LOTT [id number] i ty of PERRY 4.2.7.2.686 [facility] AYRSHIRE [phone] [facility] 084 Branch 2020-12-28 2020-12-28 Telephone [facility] 1.2.840.114 [id number] Univers 00:00:00 00:00:00 Calvin WILLIAM [id number] it y of CARE 4.2.7.2.686 [facility] [phone] Tn dical 220 Branch 2020-12-28 2020-12-28 Telephone [facility] 1.2.840.114 [id number] 00:00:00 00:00:00 Calvin WILLIAM [id number] CARE 4.2.7.2.686 PAVILLION [id number] 220 2020-12-19 2020-12-19 Transition Tuan Peters 1.2.840.114 [id number] Univers 00:00:00 00:00:00 of Care Ruchi Braswell [id number] it y of [place] 4[place]2.7.2.[place] [phone] [facility] 403 Branch 2020-12-19 2020-12-19 Transition Tuan Peters 1.2.840.114 [id number] 00:00:00 00:00:00 of Care Ruchi Braswell [id number] [place] 4.2.7.2.686 [id number] 403 2020-12-11 2020-12-17 [facility] Paco Lacey 1.2.840.1 14 [id number] Univers 05:11:00 16:00:00 Encounter HarrisonFaviovik Amaya [id number] ity of [facility] 4.2.7.2.686 [place] [phone] [facility] 096 Branch 2020-12-11 2020-12-17 Inpatient X [facility] [id number] Univers 05:11:00 16:00:00 ity of [facility] 2020-12-11 2020-12-17 [facility] Paco Lacey 1.2.840.1 14 [id number] 05:11:00 16:00:00 Encounter Vika Harrison Monique [id number] [facility] 4.2.7.2.686 [id number] 2020-11-16 2020-11-16 Emergency X [facility] ERT [id number] Univers 09:31:00 09:31:00 PACO cantu of [facility] 2020-11-11 2020-11-11 Orders Doctor CUI 1.2.840.114 [id number] Univers 00:00:00 00:00:00 Only Unassigned, MONIQUE [id number] ity of [facility] 4.2.7.2.686 Jeff as [id number] [address] 2020-11-11 2020-11-11 Orders Doctor BASILIA 1.2.840.114 [id number] 00:00:00 00:00:00 Only Unassigned, MONIQUE [id number] [facility] 4.2.7.2.686 [id number] [facility] 2020-11-07 2020-11-07 Telephone [facility] [id number] [facility] 00:00:00 00:00:00 Sendsiobhan Lott [id number] ity of [place]2.[place] Profess[place] [id number] [address] 2020-11-07 2020-11-07 Telephone [facility] [id number] 00:00:00 00:00:00 Angi Lott 350.1.13.10 [place] 4.2.7.2.686 Professio [id number] [address] 2020-10-30 2020-10-30 Orders Doctor BASILIA 1.2.840.114 [id number] [facility] 00:00:00 00:00:00 Only Unassigned, MONIQUE 350.1.13.10 ity [facility] 4.2.7.2.686 Jeff as [id number] [address] 2020-10-30 2020-10-30 Orders Doctor BASILIA 1.2.840.114 [id number] 00:00:00 00:00:00 Only Unassigned, MONIQUE 350.1.13.10 [facility] 4.2.7.2.686 [id number] [facility] 2020-09-26 2020-09-26 Telephone [facility] 1.2.840.114 [id number] [facility] 00:00:00 00:00:00 [facility] 350.1.13.10 i ty of CLINICS [place].2.[place] [id number] [address] 2020-09-26 2020-09-26 Telephone [facility] 1.2.840.114 [id number] 00:00:00 00:00:00 [facility] 350.1.13.10 CLINICS 4.2.7.2.686 [id number] 027 2020-09-01 2020-09-01 Orders Doctor BASILIA 1.2.840.114 [id number] Univers 00:00:00 00:00:00 Only Unassigned, MONIQUE 350.1.13.10 [facility] [place] [facility] 4.2.7.2.686 Jeff as [phone] [facility] 009 Branch 2020-09-01 2020-09-01 Orders Doctor BASILIA 1.2.840.114 [id number] 00:00:00 00:00:00 Only Unassigned, MONIQUE 350.1.13.10 [facility] 4.2.7.2.686 [id number] 2020-08-25 2020-08-25 Transition Tuan Peters 1.2.840.114 [id number] Univers 00:00:00 00:00:00 of Care Ruchi Braswell 350.1.13.10 it y of [place] 4[place]2.7.2.[place] [id number] [facility] 403 Branch 2020-08-25 2020-08-25 Transition Tuan Peters 1.2.840.114 [id number] 00:00:00 00:00:00 of Care Ruchi Braswell 350.1.13.10 [place] 4.2.7.2.686 [id number] 403 2020-08-21 2020-08-23 [facility] 1. 2.840.114 [id number] [facility] 01:07:00 18:35:00 Encounter Mukul Gallardoy 350.1.13. 10 ity of [facility] 4.2.7.2.686 Jeff as [phone] [facility] 095 Branch 2020-08-21 2020-08-23 [facility] Ayleen 1.2.840.114 [id number] 01:07:00 18:35:00 Encounter Kelly Monique 350.1.13.10 [facility] 4.2.7.2.686 [id number] Results Test Description Test Time Test Comments Results Result Comments Source POCT GLUCOSE (AUTOMATED) 2020-12-17 15:43:35 Test Item Value Reference Range Interpretation Comme nts POCT GLU (test code = 0007101985) 129 mg/dL 70-110 H Lab Interpretation (test code = 48682-0) Abnormal [facility] METABOLIC PANEL (NA, K, CL, CO2, GLUCOSE, BUN, CREATININE, CA)2020-12-17 11:45:07 Test Item Value Reference Range Interpretation Comments NA (test code = 137 mmol/L 135-145 1558418011) K (test code = 3.5 mmol/L 3.5-5.0 0896772451) CL (test code = 103 mmol/L 98-108 5962131497) CO2 TOTAL (test code = 26 mmol/L 23-31 4997520018) AGAP (test code = 2-16 6606489778) BUN (test code = 11 mg/dL 7-23 5149998354) GLUCOSE (test code = 175 mg/dL 70-110 H 2889365245) CREATININE (test code = 0.62 mg/dL 0.60-1.25 3794848546) CALCIUM (test code = 9.0 mg/dL 8.6-10.6 7025813420) eGFR Calculation mL/min/1.73m2 (Non-) (test code = 2080768838) eGFR Calculation mL/min/1.73m2 () (test code = 9666420639) JAMES (test code = JAMES) Association of [...] tests). Lab Interpretation Abnormal (test code = 03821-7) [facility] WITH [id number] 11:07:27 Test Item Value Reference Range Interpretation [...] RDW-SD (test code = 45.2 fL 38.5-51.6 94392-8) RDW-CV (test code = 16.9 % 12.1-15.4 H 788-0) PLT (test code = See_Comment H [Automated 777-3) message] The sy stem which generated this result transmitted reference range : 150 - 328 10*3/ ?L. The reference r torito was not used to interpret this result as normal/abnormal . MPV (test code = 8.1 fL 9.8-13.0 L 28502-1) NRBC/100 WBC (test See_Comment [Automat ed code = 6737774590) message] The system which generated this result transmitted reference range : 0.0 - 10.0 /100 WBCs. The refer ence range was not u sed to interpret th is result as normal/abnormal . NRBC x10^3 (test code <0.01 See_Comment [Auto mated = 3760310572) message] The s ystem which generated this result transmitted reference range : 10*3/?L. The reference range was not used to interpret this result as normal/abnormal . GRAN MAT (NEUT) % 72.8 % (test code = 770-8) IMM GRAN % (test code 0.60 % = 1155805932) LYMPH % (test code = 18.4 % 736-9) MONO % (test code = 5.7 % 5905-5) EOS % (test code = 1.8 % 713-8) BASO % (test code = 0.7 % 706-2) GRAN MAT x10^3(ANC) 8.23 10*3/uL 1.99-6.95 H (test code = 0660228518) IMM GRAN x10^3 (test 0.07 10*3/uL 0.00-0.06 H code = 2075834927) LYMPH x10^3 (test code 2.08 10*3/uL 1.09-3.23 = 731-0) MONO x10^3 (test code 0.65 10*3/uL 0.36-1.02 = 742-7) EOS x10^3 (test code = 0.20 10*3/uL 0.06-0.53 711-2) BASO x10^3 (test code 0.08 10*3/uL 0.01-0.09 = 704-7) Lab Interpretation Abnormal (test code = 67703-9) General acute hospital GLUCOSE (AUTOMATED)2020-12-17 06:03:38 Test Item Value Reference Range Interpretation Comments POCT GLU (test code = 2349139369) 75 mg/dL 70-110 Lab Interpretation (test code = Normal 35860-5) [facility], [id number] 00:01:00 Test Item Value Reference Range Interpretation Comments VIT B6 (test code = 13.1 nmol/L 20.0-125.0 L INTERPRE TIVE 66823-7) INFORMATION: Vi tamin B6 (Pyridoxal 5-Phosphate) Pyridoxal 5'-phosphate me asured in a specimen collected follo wing an 8-hour or overnight fast accurately clara cates vitamin B6 nutritional sta tus. Non-fasting spe cimen concentration reflects recent vitamin intake. This test was develo ped and its perform ance characteristics determined by [employer] Laboratories. I t has not been cleare d or approved by the [place] Food and Drug Administration. This test was perfor med in a CLIA certifie d laboratory and is intended for cl inical purposes.Perfor med By: [email or web address] [place] [address] [id number] Director: Namrata Klein MD Lab Interpretation Abnormal (test code = 50145-1) [facility] TIBIA FIBULA 2 VW [id number] 23:57:09 Tricompartmental knee joint osteoarthrosis.XR TIBIA FIBULA 2 VW LEFT INDICATION: Left lower extremity pain from knee down to ankle COMPARISON: None FINDINGS: Moderate to severe tricompartmental knee joint osteoarthrosis. Diffusemuscle atrophy and osteopenia. No acute fracture or dislocation. Prmb, Radiant Results Inft User - 12/16/2020 5:58 PM CSTXR TIBIA FIBULA 2 VW LEFTINDICATION: Left lower extremity pain from knee down to ankle COMPARISON: NoneFINDINGS:Moderate to severe tricompartmental knee joint osteoarthrosis. Diffusemuscle atrophy and osteopenia. No acute fracture or dislocation.IMPRESSIONTricompartmental knee joint osteoarthrosis.General acute hospital GLUCOSE (AUTOMATED) 2020-12-16 23:27:00 Test Item Value Reference Range Interpretation Comments POCT GLU (test code = 4771413722) 114 mg/dL 70-110 H Lab Interpretation (test code = Abnormal 90249-9) General acute hospital GLUCOSE (AUTOMATED)2020-12-16 20:12:00 Test Item Value Reference Range Interpretation Comments POCT GLU (test code = 0467516364) 105 mg/dL 70-110 Lab Interpretation (test code = Normal 66074-6) [facility])2020-12-16 14:44:00 Test Item Value Reference Range Interpretation Comments POCT GLU (test code = 0076530508) 153 mg/dL 70-110 H Lab Interpretation (test code = Abnormal 17073-8) [facility] METABOLIC PANEL (NA, K, CL, CO2, GLUCOSE, BUN, CREATININE, CA)2020-12-16 14:23:00 Test Item Value Reference Range Interpretation Comments NA (test code = 138 mmol/L 135-145 7335371052) K (test code = 3.4 mmol/L 3.5-5.0 L 7438574590) CL (test code = 100 mmol/L 98-108 7795953258) CO2 TOTAL (test code = 31 mmol/L 23-31 7550238695) AGAP (test code = 2-16 6930596394) BUN (test code = 11 mg/dL 7-23 1548157085) GLUCOSE (test code = 162 mg/dL 70-110 H 6766304459) CREATININE (test code = 0.64 mg/dL 0.60-1.25 7239961989) CALCIUM (test code = 8.9 mg/dL 8.6-10.6 1617782226) eGFR Calculation mL/min/1.73m2 (Non-) (test code = 5026181091) eGFR Calculation mL/min/1.73m2 () (test code = 6785311773) JAMES (test code = JAMES) Association of [...] tests). Lab Interpretation Abnormal (test code = 62118-1) [facility] WITH [id number] 14:05:00 Test Item Value Reference Range Interpretation Comments WBC (test code = See_Comment H [Automated 9590-2) message] The sy stem which [...] RDW-SD (test code = 45.4 fL 38.5-51.6 48463-6) RDW-CV (test code = 17.0 % 12.1-15.4 H 788-0) PLT (test code = See_Comment H [Automated 777-3) message] The sy stem which generated this result transmitted reference range : 150 - 328 10*3/ ?L. The reference r torito was not used to interpret this result as normal/abnormal . MPV (test code = 8.0 fL 9.8-13.0 L 19557-9) NRBC/100 WBC (test See_Comment [Automat ed code = 7363058254) message] The system which generated this result transmitted reference range : 0.0 - 10.0 /100 WBCs. The refer ence range was not u sed to interpret th is result as normal/abnormal . NRBC x10^3 (test code <0.01 See_Comment [Auto mated = 4361175713) message] The s ystem which generated this result transmitted reference range : 10*3/?L. The reference range was not used to interpret this result as normal/abnormal . GRAN MAT (NEUT) % 70.0 % (test code = 770-8) IMM GRAN % (test code 0.70 % = 9182670367) LYMPH % (test code = 20.5 % 736-9) MONO % (test code = 7.1 % 5905-5) EOS % (test code = 1.0 % 713-8) BASO % (test code = 0.7 % 706-2) GRAN MAT x10^3(ANC) 9.44 10*3/uL 1.99-6.95 H (test code = 7004320682) IMM GRAN x10^3 (test 0.09 10*3/uL 0.00-0.06 H code = 8310153268) LYMPH x10^3 (test code 2.76 10*3/uL 1.09-3.23 = 731-0) MONO x10^3 (test code 0.96 10*3/uL 0.36-1.02 = 742-7) EOS x10^3 (test code = 0.13 10*3/uL 0.06-0.53 711-2) BASO x10^3 (test code 0.10 10*3/uL 0.01-0.09 H = 704-7) Lab Interpretation Abnormal (test code = 34157-0) [facility] HospitalBlood Culture - Peripheral # [id number] 13:01:00 Test Item Value Reference Range Interpretation Comments Blood Culture-Aerobic No organisms No growth Previo us (test code = 09220-2) isolated prelim inary verified result was Culture In Progress on 12/11/2020 at 100 1 CSTPrevious preliminary verified result was No growth a t 24 hours on 12/12/2020 at 070 1 CSTPrevious preliminary verified result was No growth a t 48 hours on 12/13/2020 at 070 1 CSTPrevious preliminary verified result was No growth a t 72 hours on 12/14/2020 at 070 1 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 Blood No organisms No growth Previous Culture-Anaerobic isolated preliminar y (test code = 55904-2) verifi ed result was Culture In Progress on 12/11/2020 at 100 1 CSTPrevious preliminary verified result was No growth a t 24 hours on 12/12/2020 at 070 1 CSTPrevious preliminary verified result was No growth a t 48 hours on 12/13/2020 at 070 1 CSTPrevious preliminary verified result was No growth a t 72 hours on 12/14/2020 at 070 1 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 Lab Interpretation Normal (test code = 81695-2) [facility] HospitalBlood Culture - Peripheral # [id number] 13:01:00 Test Item Value Reference Range Interpretation Comments Blood Culture-Aerobic No organisms No growth Previo us (test code = 57293-1) isolated prelim inary verified result was Culture In Progress on 12/11/2020 at 100 1 CSTPrevious preliminary verified result was No growth a t 24 hours on 12/12/2020 at 070 1 CSTPrevious preliminary verified result was No growth a t 48 hours on 12/13/2020 at 070 1 CSTPrevious preliminary verified result was No growth a t 72 hours on 12/14/2020 at 070 1 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 Blood No organisms No growth Previous Culture-Anaerobic isolated preliminar y (test code = 36420-2) verifi ed result was Culture In Progress on 12/11/2020 at 100 1 CSTPrevious preliminary verified result was No growth a t 24 hours on 12/12/2020 at 070 1 CSTPrevious preliminary verified result was No growth a t 48 hours on 12/13/2020 at 070 1 CSTPrevious preliminary verified result was No growth a t 72 hours on 12/14/2020 at 070 1 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 No interval change in [...] stableappearance of intra and extrahepatic biliary ductal dilatation.General acute hospital GLUCOSE (AUTOMATED)2020-12-15 19:28:00 Test Item Value Reference Range Interpretation Comments POCT GLU (test code = 7250912823) 140 mg/dL 70-110 H Lab Interpretation (test code = Abnormal 91003-0) [facility] HospitalMAGNESIUM2021-03-05 15:26:00 Test Item Value Reference Range Interpretation Comments MAGNESIUM (test code = 6049852161) 2.2 mg/dL 1.7-2.4 Lab Interpretation (test code = Normal 67459-0) General acute hospital GLUCOSE (AUTOMATED)2020-12-15 15:15:00 Test Item Value Reference Range Interpretation Comments POCT GLU (test code = 6550273809) 181 mg/dL 70-110 H Lab Interpretation (test code = Abnormal 04164-4) [facility] (NA, K, CL, CO2, GLUCOSE, BUN, CREATININE, CA)2020-12-15 13:07:00 Test Item Value Reference Range Interpretation Comments NA (test code = 136 mmol/L 135-145 6632514353) K (test code = 3.6 mmol/L 3.5-5.0 5536888367) CL (test code = 96 mmol/L 98-108 L 2463977140) CO2 TOTAL (test code = 29 mmol/L 23-31 4287885025) AGAP (test code = 2-16 6164032864) BUN (test code = 12 mg/dL 7-23 0288829828) GLUCOSE (test code = 183 mg/dL 70-110 H 3429558876) CREATININE (test code = 0.70 mg/dL 0.60-1.25 2335839819) CALCIUM (test code = 9.2 mg/dL 8.6-10.6 1487089326) eGFR Calculation mL/min/1.73m2 (Non-) (test code = 1691619626) eGFR Calculation mL/min/1.73m2 () (test code = 8592754923) JAMES (test code = JAMES) Association of [...] tests). Lab Interpretation Abnormal (test code = 29875-8) [facility] WITH [id number] 12:32:00 Test Item Value Reference Range Interpretation Comments WBC (test code = See_Comment H [Automated 2090-2) message] The system which generated this result transmit ronan reference range : 4.20 - 10.70 10*3/?L. The reference range was not used to interpret this result as normal/abnormal . RBC (test code = See_Comment H [Automated 249-8) message] The system which generated this result [...] RDW-SD (test code = 44.4 fL 38.5-51.6 16841-4) RDW-CV (test code = 17.7 % 12.1-15.4 H 788-0) PLT (test code = See_Comment H [Automated 777-3) message] The system which generated this result transmit ronan reference range : 150 - 328 10*3/ ?L. The reference range was not u sed to interpret th is result as normal/abnormal . MPV (test code = 8.1 fL 9.8-13.0 L 75995-0) NRBC/100 WBC (test See_Comment [Automat ed code = 5518244413) message] The system which generated this result transmit ronan reference range : 0.0 - 10.0 /100 WBCs. The reference range was not used to interpret this result as normal/abnormal . NRBC x10^3 (test code <0.01 See_Comment [Auto mated = 7816489101) message] The system which generated this result transmit ronan reference range : 10*3/?L. The reference range was not used to interpret this result as normal/abnormal . GRAN MAT (NEUT) % 74.5 % (test code = 770-8) IMM GRAN % (test code 0.70 % = 8633180208) LYMPH % (test code = 17.4 % 736-9) MONO % (test code = 6.8 % 5905-5) EOS % (test code = 0.2 % 713-8) BASO % (test code = 0.4 % 706-2) GRAN MAT x10^3(ANC) 11.99 10*3/uL 1.99-6.95 H (test code = 8123494865) IMM GRAN x10^3 (test 0.11 10*3/uL 0.00-0.06 H code = 4214144212) LYMPH x10^3 (test code 2.80 10*3/uL 1.09-3.23 = 731-0) MONO x10^3 (test code 1.10 10*3/uL 0.36-1.02 H = 742-7) EOS x10^3 (test code = 0.03 10*3/uL 0.06-0.53 L 711-2) BASO x10^3 (test code 0.06 10*3/uL 0.01-0.09 = 704-7) Lab Interpretation Abnormal (test code = 42464-6) General acute hospital GLUCOSE (AUTOMATED)2020-12-15 04:16:00 Test Item Value Reference Range Interpretation Comments POCT GLU (test code = 3926817123) 200 mg/dL 70-110 H Lab Interpretation (test code = Abnormal 57358-7) [facility] HospitalVITAMIN B1 (THIAMINE), WHOLE [id number] 00:30:00 Test Item Value Reference Range Interpretation Comments Vitamin B1, Whole 136 nmol/L 70-180 INTERPRETI VE INFORMATION: Blood (test code = Vitamin B 1, Whole Blood 38135-3) This assay júnior ures the concentration o [...] performance characteristics determined by A [facility] Laboratories. I t has not been cleared or approved by the [place] Food and Drug Administration. This test was performed i n a CLIA certified labor atory and is intended for clinical purposes.Perfor med By: [facility] [place] [address] [id number] aboratory Director: Namrata Klein MD General acute hospital GLUCOSE (AUTOMATED)2020-12-14 23:35:00 Test Item Value Reference Range Interpretation Comments POCT GLU (test code = 3248589079) 151 mg/dL 70-110 H Lab Interpretation (test code = Abnormal 20430-9) General acute hospital GLUCOSE (AUTOMATED)2020-12-14 19:19:00 Test Item Value Reference Range Interpretation Comments POCT GLU (test code = 7294455137) 193 mg/dL 70-110 H Lab Interpretation (test code = Abnormal 02643-0) General acute hospital GLUCOSE (AUTOMATED)2020-12-14 15:22:00 Test Item Value Reference Range Interpretation Comments POCT GLU (test code = 3767461251) 221 mg/dL 70-110 H Lab Interpretation (test code = Abnormal 70563-2) General acute hospital GLUCOSE (AUTOMATED)2020-12-14 02:37:00 Test Item Value Reference Range Interpretation Comments POCT GLU (test code = 3114792867) 210 mg/dL 70-110 H Lab Interpretation (test code = Abnormal 46438-2) General acute hospital GLUCOSE (AUTOMATED)2020-12-13 23:33:00 Test Item Value Reference Range Interpretation Comments POCT GLU (test code = 0901670771) 182 mg/dL 70-110 H Lab Interpretation (test code = Abnormal 81053-5) General acute hospital GLUCOSE (AUTOMATED)2020-12-13 18:09:00 Test Item Value Reference Range Interpretation Comments POCT GLU (test code = 4439492199) 150 mg/dL 70-110 H Lab Interpretation (test code = Abnormal 69650-3) [facility] METABOLIC PANEL (NA, K, CL, CO2, GLUCOSE, BUN, CREATININE, CA)2020-12-13 16:27:00 Test Item Value Reference Range Interpretation Comments NA (test code = 136 mmol/L 135-145 1593303507) K (test code = 3.7 mmol/L 3.5-5.0 9000529794) CL (test code = 96 mmol/L 98-108 L 4099559254) CO2 TOTAL (test code = 29 mmol/L 23-31 2823245112) AGAP (test code = 2-16 0734721277) BUN (test code = 6 mg/dL 7-23 L 2221432677) GLUCOSE (test code = 212 mg/dL 70-110 H 3579194536) CREATININE (test code = 0.61 mg/dL 0.60-1.25 6082927252) CALCIUM (test code = 9.5 mg/dL 8.6-10.6 2638318055) eGFR Calculation mL/min/1.73m2 (Non-) (test code = 9821039572) eGFR Calculation mL/min/1.73m2 () (test code = 6944295857) JAMES (test code = JAMES) Association of [...] tests). Lab Interpretation Abnormal (test code = 68185-1) [facility] WITH [id number] 16:10:00 Test Item Value Reference Range Interpretation Comments WBC (test code = See_Comment H [Automated 1890-2) message] The sy stem which generated this result transmitted reference range : 4.20 - 10.70 10*3/?L. The reference range was not used to interpret this result as normal/abnormal . RBC (test code = See_Comment H [Automated 619-8) message] The sy stem which [...] RDW-SD (test code = 43.3 fL 38.5-51.6 48105-7) RDW-CV (test code = 16.2 % 12.1-15.4 H 788-0) PLT (test code = See_Comment H [Automated 777-3) message] The sy stem which generated this result transmitted reference range : 150 - 328 10*3/ ?L. The reference r torito was not used to interpret this result as normal/abnormal . MPV (test code = 8.2 fL 9.8-13.0 L 46600-6) NRBC/100 WBC (test See_Comment [Automat ed code = 1931494836) message] The system which generated this result transmitted reference range : 0.0 - 10.0 /100 WBCs. The refer ence range was not u sed to interpret th is result as normal/abnormal . NRBC x10^3 (test code <0.01 See_Comment [Auto mated = 5736937449) message] The s ystem which generated this result transmitted reference range : 10*3/?L. The reference range was not used to interpret this result as normal/abnormal . GRAN MAT (NEUT) % 86.2 % (test code = 770-8) IMM GRAN % (test code 0.70 % = 7558961070) LYMPH % (test code = 10.2 % 736-9) MONO % (test code = 2.5 % 5905-5) EOS % (test code = 0.1 % 713-8) BASO % (test code = 0.3 % 706-2) GRAN MAT x10^3(ANC) 9.61 10*3/uL 1.99-6.95 H (test code = 2009829820) IMM GRAN x10^3 (test 0.08 10*3/uL 0.00-0.06 H code = 4920766843) LYMPH x10^3 (test code 1.14 10*3/uL 1.09-3.23 = 731-0) MONO x10^3 (test code 0.28 10*3/uL 0.36-1.02 L = 742-7) EOS x10^3 (test code = <0.03 0.06-0.53 L 711-2) BASO x10^3 (test code 0.03 10*3/uL 0.01-0.09 = 704-7) Lab Interpretation Abnormal (test code = 43804-5) [facility]AUTOMATED)2020-12-13 14:16:00 Test Item Value Reference Range Interpretation Comments POCT GLU (test code = 2190127446) 236 mg/dL 70-110 H Lab Interpretation (test code = Abnormal 50005-7) [facility] HospitalLAB ONLY COVID [id number] 04:58:00COVID DMT InterpretationInterpretation/Recommendations: Molecular NAAT Tests for [...] COVID-19 testing the patient has had at [facility], including molecular NAAT testing (more commonly known as PCR testing and Rapid ID Now testing) and antibody testing. It does not take into account any testingthat a patient has had outside of the [facility] medical record. [facility] LABORATORY SERVICESCOVID QgguqgaPDNX-PfB-4 Rapid ID NOW (no units) ? ? Date ? Value ? 12/11/2020 ? Not Detected ? ? ? 11/16/2020 ? Not Detected ? ? ? 08/21/2020 ? Not Detected ? [facility] 2020-12-13 03:11:00 Test Item Value Reference Range Interpretation Comments POCT GLU (test code = 2316807050) 171 mg/dL 70-110 H Lab Interpretation (test code = Abnormal 52624-8) General acute hospital GLUCOSE (AUTOMATED)2020-12-13 00:00:00 Test Item Value Reference Range Interpretation Comments POCT GLU (test code = 9551355057) 118 mg/dL 70-110 H Lab Interpretation (test code = Abnormal 87660-2) General acute hospital GLUCOSE (AUTOMATED)2020-12-12 20:29:00 Test Item Value Reference Range Interpretation Comments POCT GLU (test code = 8889894995) 173 mg/dL 70-110 H Lab Interpretation (test code = Abnormal 10289-3) [facility] HospitalUS ABDOMEN [id number] 19:56:17 1. ?Hepatic steatosis. However, limited evaluation [...] main portal veinwasevaluated with color Doppler imaging. [employer] Processor images were obtainedfor the record. COMPARISON: Ultrasound [...] normal where visualized. SPLEEN:No images were obtained. [facility], Radiant Results Inft User - 12/12/2020 1:57 PM CSTEXAM: US ABDOMEN LIMITEDHISTORY: 70 years-old male with RUQ ultrasound to assess for common bileduct dilation .TECHNIQUE: Limited abdominal ultrasound focused on the liver, biliarysystem, pancreas, and spleen was performed. The main portal vein wasevaluated with color Doppler imaging. [employer] Settlement Processor images wereobtainedfor the record.COMPARISON: Ultrasound abdomen 11/17/2028. [...] this study and agree with the abovereport.[facility] HospitalPOCT GLU[facility]SE (AUTOMATED)2020-12-12 19:24:00 Test Item Value Reference Range Interpretation Comments POCT GLU (test code = 2105825791) 230 mg/dL 70-110 H Lab Interpretation (test code = Abnormal 43844-5) [facility] HospitalXR CHEST 1 [id number] 15:16:46 Low lung volumes with mild perihilar [...] reviewed this study and agree with theabove report.[facility] HospitalPOCT GLUCOSE (AUTOMATED)2020-12-12 14:34:00 Test Item Value Reference Range Interpretation Comments POCT GLU (test code = 4385014198) 225 mg/dL 70-110 H Lab Interpretation (test code = Abnormal 44428-0) [facility] HospitalURINE [id number] 13:28:00 Test Item Value Reference Range Interpretation Comments URINE CULTURE (test < 10,000 CFU/mL mixed code = 630-4) aerobic organisms - suggests endogenous microbial contamination [facility] HospitalBasic Metabolic Panel (NA, K, CL, CO2, GLUCOSE, BUN, CREATININE, CA)2020-12-12 10:05:00 Test Item Value Reference Range Interpretation Comments NA (test code = 136 mmol/L 135-145 3743036922) K (test code = 3.5 mmol/L 3.5-5.0 0515767791) CL (test code = 100 mmol/L 98-108 6665048640) CO2 TOTAL (test code = 31 mmol/L 23-31 1487871168) AGAP (test code = 2-16 8350693606) BUN (test code = 7 mg/dL 7-23 9281607138) GLUCOSE (test code = 259 mg/dL 70-110 H 4426028683) CREATININE (test code = 0.63 mg/dL 0.60-1.25 4288046763) CALCIUM (test code = 8.5 mg/dL 8.6-10.6 L 0769212708) eGFR Calculation mL/min/1.73m2 (Non-) (test code = 4920758276) eGFR Calculation mL/min/1.73m2 () (test code = 3182475396) JAMES (test code = JAMES) Association of [...] tests). Lab Interpretation Abnormal (test code = 87357-0) [facility] HospitalMagnesium [id number] 10:05:00 Test Item Value Reference Range Interpretation Comments MAGNESIUM (test code = 7561427075) 1.9 mg/dL 1.7-2.4 Lab Interpretation (test code = Normal 94659-8) [facility] with [id number] 09:48:00 Test Item Value Reference Range Interpretation Comments WBC (test code = See_Comment [Automated 5490-2) message] The sy stem which generated this [...] RDW-SD (test code = 46.0 fL 38.5-51.6 95990-7) RDW-CV (test code = 16.1 % 12.1-15.4 H 788-0) PLT (test code = See_Comment H [Automated 777-3) message] The sy stem which generated this result transmitted reference range : 150 - 328 10*3/ ?L. The reference r torito was not used to interpret this result as normal/abnormal . MPV (test code = 8.6 fL 9.8-13.0 L 37962-8) NRBC/100 WBC (test See_Comment [Automat ed code = 5403668485) message] The system which generated this result transmitted reference range : 0.0 - 10.0 /100 WBCs. The refer ence range was not u sed to interpret th is result as normal/abnormal . NRBC x10^3 (test code <0.01 See_Comment [Auto mated = 8043804261) message] The s ystem which generated this result transmitted reference range : 10*3/?L. The reference range was not used to interpret this result as normal/abnormal . GRAN MAT (NEUT) % 70.2 % (test code = 770-8) IMM GRAN % (test code 0.30 % = 3393430816) LYMPH % (test code = 18.8 % 736-9) MONO % (test code = 5.0 % 5905-5) EOS % (test code = 5.2 % 713-8) BASO % (test code = 0.5 % 706-2) GRAN MAT x10^3(ANC) 6.05 10*3/uL 1.99-6.95 (test code = 4298295885) IMM GRAN x10^3 (test 0.03 10*3/uL 0.00-0.06 code = 5199796480) LYMPH x10^3 (test code 1.62 10*3/uL 1.09-3.23 = 731-0) MONO x10^3 (test code 0.43 10*3/uL 0.36-1.02 = 742-7) EOS x10^3 (test code = 0.45 10*3/uL 0.06-0.53 711-2) BASO x10^3 (test code 0.04 10*3/uL 0.01-0.09 = 704-7) Lab Interpretation Abnormal (test code = 10212-3) [facility] HospitalP[facility]J GLU[facility]SE (AUTOMATED)2020-12-12 03:42:00 Test Item Value Reference Range Interpretation Comments POCT GLU (test code = 196 mg/dL 70-110 H Notifi ed Provider 7038097231) Lab Interpretation (test Abnormal code = 81804-1) [facility] HospitalFOLATE2021-03-02 02:24:00 Test Item Value Reference Range Interpretation Comments FOLATE SER (test code = 0580228223) 5.8 ng/mL 3.0-20.0 Lab Interpretation (test code = Normal 50787-3) [facility] HospitalVITAMIN B12, [id number] 00:55:00 Test Item Value Reference Range Interpretation Comments VIT B12 (test code = 844 pg/mL 240-930 8243294029) JAMES (test code = JAMES) Biotin has been reported to cause a positive bias, interpret results relative to patient's use of biotin. Lab Interpretation (test Normal code = 22634-0) [facility] HospitalPONJ GLUCOSE (AUTOMATED)2020-12-12 00:14:00 Test Item Value Reference Range Interpretation Comments POCT GLU (test code = 5411470007) 164 mg/dL 70-110 H Lab Interpretation (test code = Abnormal 45125-3) [facility] HospitalCREATINE [id number] 23:42:00 Test Item Value Reference Range Interpretation Comments CK (test code = 8329786063) <20 33-194 L Lab Interpretation (test code = Abnormal 04450-3) [facility] HospitalTHYROID STIMULATING [id number] 23:17:00 Test Item Value Reference Range Interpretation Comments TSH (test code = See_Comment Biotin has been 2443443788) reported to cau se a negative bias, interpret resul ts relative to pat sanju's use of biotin. [Automated mess age] The system [employer] generated this result transmitted ref erence range: 0.45 - 4 .70 mIU/L. The refe rence range was not u sed to interpret this result as normal/abnor mal. Lab Interpretation (test Normal code = 76908-3) [facility] HospitalXR HIPS 3 VW [id number] 21:41:53No appreciable fracture lines. RL: 6200 ICAL [...] osseous erosions.IMPRESSIONNo appreciable fracture lines.RL: 6200 [facility]IN[facility] 20:00:00 Test Item Value Reference Range Interpretation Comments Procalcitonin (test 0.13 ng/mL <0.07 H code = 9920781805) JAMES (test code = JAMES) INTERPRETATION OF [...] biotics/default.asp Lab Interpretation Abnormal (test code = 96747-3) [facility] [facility] 19:07:00 Test Item Value Reference Range Interpretation Comments POCT GLU (test code = 2822869906) 274 mg/dL 70-110 H Lab Interpretation (test code = Abnormal 11698-1) [facility]UM2021-[facility]-01 18:31:00 Test Item Value Reference Range Interpretation Comments MAGNESIUM (test code = 5803089481) 1.9 mg/dL 1.7-2.4 Lab Interpretation (test code = Normal 91708-5) [facility] HospitalFERRITIN [id number] 18:31:00 Test Item Value Reference Range Interpretation Comments FERRITIN (test code = 178.0 ng/mL 18.0-464.0 2455215366) JAMES (test code = JAMES) Biotin has been reported to cause a negative bias, interpret results relative to patient's use of biotin. Lab Interpretation (test Normal code = 62000-0) [facility] HEAD WO [id number] 14:36:47 No acute intracranial abnormality. Dilated ventricles [...] this study and agree with the abovereport.[facility] HospitalURINALYSIS2021-03-01 14:28:00 Test Item Value Reference Range Interpretation Comments APPEARANCE (test code = Clear Clear 5673574263) COLOR (test code = Yellow Yellow 9183035909) PH (test code = 4.8-8.0 6788463370) SP GRAVITY (test code = 1.003-1.030 2755870429) GLU U QUAL (test code = 500 mg/dL Normal A 5896567873) BLOOD (test code = Negative Negative 6189246074) KETONES (test code = 5 mg/dL Negative A 4219629308) PROTEIN (test code = Negative Negative 2887-8) UROBILIN (test code = Normal Normal 2538400373) BILIRUBIN (test code = Negative Negative 6864219217) NITRITE (test code = Negative Negative 3569485079) LEUK RYAN (test code = Negative Negative 9819038316) RBC/HPF (test code = See_Comment [Autom ated message] 3963235670) The system [employer] generated this result transmit ronan reference range : 0 - 3 HPF. The refe rence range was not u sed to interpret th is result as normal/abnormal . WBC/HPF (test code = See_Comment [Autom ated message] 7647319444) The system [employer] generated this result transmit ronan reference range : 0 - 5 HPF. The refe rence range was not u sed to interpret th is result as normal/abnormal . BACTERIA (test code = Negative Negative 9065942677) MUCOUS (test code = Slight Negative LPF A 5138911911) SQ EPITH (test code = HPF 7232283922) Lab Interpretation (test Abnormal code = 68496-3) [facility] HospitalCOVID-[facility] (ID NOW RAPID TESTING)2020-12-11 13:10:00 Test Item Value Reference Range Interpretation Comments SARS-CoV-2 Rapid ID NOW Not Detected Not Detected (test code = 25741-0) JAMES (test code = JAMES) ID NOW COVID-19 Assay is an isothermal nucleic acid amplification test intended for the qualitative detection of nucleic acid from SARS-CoV-2 viral RNA in nasopharyngeal ([employer]) specimens. It is used under Emergency Use [...] indicated. Lab Interpretation Normal (test code = 63310-5) [facility] HospitalCOM. METABOLIC PANEL (23153)2020-12-11 12:29:00 Test Item Value Reference Range Interpretation Comments NA (test code = 136 mmol/L 135-145 5349983714) K (test code = 3.5 mmol/L 3.5-5.0 7788719161) CL (test code = 95 mmol/L 98-108 L 3845159321) CO2 TOTAL (test code = 35 mmol/L 23-31 H 6863201384) AGAP (test code = 2-16 8200772068) BUN (test code = 9 mg/dL 7-23 3213706081) GLUCOSE (test code = 329 mg/dL 70-110 H 7369578202) CREATININE (test code = 0.72 mg/dL 0.60-1.25 2938589956) TOTAL BILI (test code = 0.6 mg/dL 0.1-1.9 8916423621) CALCIUM (test code = 9.0 mg/dL 8.6-10.6 5871589746) T PROTEIN (test code = 6.8 g/dL 6.3-8.2 9270582837) ALBUMIN (test code = 3.8 g/dL 3.5-5.0 4344797258) ALK PHOS (test code = 288 U/L 34-122 H 7187152849) ALTv (test code = 46 U/L 5-50 1742-6) AST(SGOT) (test code = 38 U/L 13-40 8081693005) eGFR Calculation mL/min/1.73m2 (Non-) (test code = 2339634424) eGFR Calculation mL/min/1.73m2 () (test code = 3996219013) JAMES (test code = JAMES) Association of [...] tests). Lab Interpretation Abnormal (test code = 02294-6) [facility] HospitalLactic Acid Whole [id number] 12:23:00 Test Item Value Reference Range Interpretation Comments LACTIC ACID (test code = 2.09 mmol/L 0.50-2.20 6831851751) Lab Interpretation (test code = Normal 19736-6) [facility] WITH [id number] 12:17:00 Test Item Value Reference Range Interpretation Comments WBC (test code = See_Comment H [Automated 3854-2) message] The sy stem which generated this result transmitted reference range : 4.20 - 10.70 10*3/?L. The reference range was not used to interpret this result as normal/abnormal . RBC (test code = See_Comment [Automated 741-8) message] The sy stem which generated this [...] RDW-SD (test code = 44.9 fL 38.5-51.6 75302-4) RDW-CV (test code = 15.9 % 12.1-15.4 H 788-0) PLT (test code = See_Comment H [Automated 777-3) message] The sy stem which generated this result transmitted reference range : 150 - 328 10*3/ ?L. The reference r torito was not used to interpret this result as normal/abnormal . MPV (test code = 8.3 fL 9.8-13.0 L 43356-8) NRBC/100 WBC (test See_Comment [Automat ed code = 6057737724) message] The system which generated this result transmitted reference range : 0.0 - 10.0 /100 WBCs. The refer ence range was not u sed to interpret th is result as normal/abnormal . NRBC x10^3 (test code <0.01 See_Comment [Auto mated = 1318103438) message] The s ystem which generated this result transmitted reference range : 10*3/?L. The reference range was not used to interpret this result as normal/abnormal . GRAN MAT (NEUT) % 77.9 % (test code = 770-8) IMM GRAN % (test code 0.50 % = 0395697626) LYMPH % (test code = 12.2 % 736-9) MONO % (test code = 5.2 % 5905-5) EOS % (test code = 3.7 % 713-8) BASO % (test code = 0.5 % 706-2) GRAN MAT x10^3(ANC) 9.57 10*3/uL 1.99-6.95 H (test code = 5337210087) IMM GRAN x10^3 (test 0.06 10*3/uL 0.00-0.06 code = 5246688614) LYMPH x10^3 (test code 1.50 10*3/uL 1.09-3.23 = 731-0) MONO x10^3 (test code 0.64 10*3/uL 0.36-1.02 = 742-7) EOS x10^3 (test code = 0.46 10*3/uL 0.06-0.53 711-2) BASO x10^3 (test code 0.06 10*3/uL 0.01-0.09 = 704-7) Lab Interpretation Abnormal (test code = 24487-0) [facility] HospitalLAB ONLY COVID [id number] 18:43:00COVID DMT InterpretationInterpretation/Recommendations: Molecular NAAT Test Results [...] a nasopharyngeal sample, there is approximately a ems-ff-dnfao chance that the patient was infected and [...] based upon aggregate data pooled from the [facility] medical recordincluding both current and prior COVID-19 related testing results for the following tests offered atour institution:A. Tests for the Identification of SARS-CoV-2 RNA:SARS-CoV-2 PCR assays including [place] Aptima, [place] Fusion, Barrett RealTime, and [employer] Xpress. SARS-CoV-2 Rapid ID NOW by the ID NOW assay. ? B. Tests for the Identification of SARS-CoV-2 Antibodies: Chemiluminescent immunoassays including Access SARS-CoV-2 IgM (DXI 600), VITROS Vawf-BTKK-DwZ-2 IgG (Vitros 5600 and Vitros 3600), and Barrett SARS-CoV-2 IgG (SENIOR LICENSING MANAGER I System). These interpretation comments assume that only the above testing was utilized and that the approved acceptable specimen type(s) were used for a given test. These interpretations are autopopulated into [employer] (P) based on computerized algorithms matching an interpretation code number to the patient's set of test results. While a clinical pathologist evaluates the combinations for clinical accuracy, clinical correlation is recommended as it may not take into account very remote prior testing. Furthermore, it does not consider testing a patient may have had outside of the [facility] system. Additionally, it should be noted that the computerized algorithm treats the results for PCR testing and Rapid ID NOW testing (also PCR) synonymously, and thus, refers to both testing methodologies as PCR tests. Given that the sensitivity of [facility]'s Rapid ID NOW testing platform [...] pathogen panel may be beneficialin this setting. [facility] LABORATORY SERVICESCOVID IdgtcqtNWEO-RmR-3 Rapid ID NOW (no units) ? ? Date ? Value ? 08/21/2020 ? Not Detected ? [facility] LABORATORY SERVICESUnDallas Medical CenterPOCT GLUCOSE (AUTOMATED)2020-08-23 18:25:00 Test Item Value Reference Range Interpretation Comments POCT GLU (test code = 0327987323) 297 mg/dL 70-110 H Lab Interpretation (test code = Abnormal 59784-3) [facility] HospitalPO[facility] GLUCOSE (AUTOMATED)2020-08-23 14:25:00 Test Item Value Reference Range Interpretation Comments POCT GLU (test code = 5154546694) 181 mg/dL 70-110 H Lab Interpretation (test code = Abnormal 69065-3) [facility] Met[facility] (NA, K, CL, CO2, GLUCOSE, BUN, CREATININE, CA)2020-08-23 11:45:00 Test Item Value Reference Range Interpretation Comments NA (test code = 132 mmol/L 135-145 L 4748705276) K (test code = 4.0 mmol/L 3.5-5 9010306595) CL (test code = 96 mmol/L 98-108 L 6703059116) CO2 TOTAL (test code = 33 mmol/L 23-31 H 4810277523) AGAP (test code = 2-16 3647264108) BUN (test code = 9 mg/dL 7-23 6839136329) GLUCOSE (test code = 176 mg/dL 70-110 H 5377547779) CREATININE (test code = 0.66 mg/dL 0.6-1.25 3959460129) CALCIUM (test code = 8.5 mg/dL 8.6-10.6 L 0696365418) eGFR Calculation mL/min/1.73m2 (Non-) (test code = 2426527975) eGFR Calculation mL/min/1.73m2 () (test code = 6607472740) JAMES (test code = JAMES) Association of [...] tests). Lab Interpretation Abnormal (test code = 61685-4) [facility] HospitalMagnesium [id number] 11:45:00 Test Item Value Reference Range Interpretation Comments MAGNESIUM (test code = 1479758024) 2.0 mg/dL 1.7-2.4 Lab Interpretation (test code = Normal 74396-4) [facility] with [id number] 11:38:00 Test Item Value Reference Range Interpretation Comments WBC (test code = See_Comment [Automated 0890-2) message] The sy stem which [...] RDW-SD (test code = 41.8 fL 38.5-51.6 71215-7) RDW-CV (test code = 14.3 % 12.1-15.4 788-0) PLT (test code = See_Comment H [Automated 777-3) message] The sy stem which generated this result transmitted reference range : 150 - 328 10*3/ ?L. The reference r torito was not used to interpret this result as normal/abnormal . MPV (test code = 8.0 fL 9.8-13 L 69297-4) NRBC/100 WBC (test See_Comment [Automat ed code = 2174320357) message] The system which generated this result transmitted reference range : 0.0 - 10.0 /100 WBCs. The refer ence range was not u sed to interpret th is result as normal/abnormal . NRBC x10^3 (test code <0.01 See_Comment [Auto mated = 7112725180) message] The s ystem which generated this result transmitted reference range : 10*3/?L. The reference range was not used to interpret this result as normal/abnormal . GRAN MAT (NEUT) % 61.5 % (test code = 770-8) IMM GRAN % (test code 2.00 % = 2178301195) LYMPH % (test code = 25.5 % 736-9) MONO % (test code = 6.3 % 5905-5) EOS % (test code = 3.7 % 713-8) BASO % (test code = 1.0 % 706-2) GRAN MAT x10^3(ANC) 5.29 10*3/uL 1.99-6.95 (test code = 5669227694) IMM GRAN x10^3 (test 0.17 10*3/uL 0-0.06 H code = 1650474566) LYMPH x10^3 (test code 2.19 10*3/uL 1.09-3.23 = 731-0) MONO x10^3 (test code 0.54 10*3/uL 0.36-1.02 = 742-7) EOS x10^3 (test code = 0.32 10*3/uL 0.06-0.53 711-2) BASO x10^3 (test code 0.09 10*3/uL 0.01-0.09 = 704-7) Lab Interpretation Abnormal (test code = 94906-9) [facility] (AUTOM[facility])2020-08-23 10:22:00 Test Item Value Reference Range Interpretation Comments POCT GLU (test code = 0929172866) 164 mg/dL 70-110 H Lab Interpretation (test code = Abnormal 34131-0) [facility] hospital GLUCOSE (AUTOMATED)2020-08-23 05:56:00 Test Item Value Reference Range Interpretation Comments POCT GLU (test code = 8167848955) 242 mg/dL 70-110 H Lab Interpretation (test code = Abnormal 53506-4) [facility] acute hospital GLUCOSE (AUTOMATED)2020-08-23 03:02:00 Test Item Value Reference Range Interpretation Comments POCT GLU (test code = 0919072705) 210 mg/dL 70-110 H Lab Interpretation (test code = Abnormal 54558-1) [facility] acute hospital GLUCOSE (AUTOMATED)2020-08-22 23:40:00 Test Item Value Reference Range Interpretation Comments POCT GLU (test code = 0756722536) 267 mg/dL 70-110 H Lab Interpretation (test code = Abnormal 69668-1) [facility] acute hospital GLUCOSE (AUTOMATED)2020-08-22 19:08:00 Test Item Value Reference Range Interpretation Comments POCT GLU (test code = 5777624155) 191 mg/dL 70-110 H Lab Interpretation (test code = Abnormal 23022-3) [facility] acute hospital GLUCOSE (AUTOMATED)2020-08-22 13:50:00 Test Item Value Reference Range Interpretation Comments POCT GLU (test code = 3025176642) 174 mg/dL 70-110 H Lab Interpretation (test code = Abnormal 29032-1) [facility] HospitalURINE [id number] 12:59:00 Test Item Value Reference Range Interpretation Comments URINE CULTURE (test No aerobic growth (< code = 630-4) 1000 CFU/mL) [facility] with Juhymeejficb6946-13-49 11:28:00 Test Item Value Reference Range Interpretation Comments WBC (test code = See_Comment [Automated 0890-2) message] The sy stem which [...] RDW-SD (test code = 42.5 fL 38.5-51.6 97084-7) RDW-CV (test code = 14.5 % 12.1-15.4 788-0) PLT (test code = See_Comment H [Automated 777-3) message] The sy stem which generated this result transmitted reference range : 150 - 328 10*3/ ?L. The reference r torito was not used to interpret this result as normal/abnormal . MPV (test code = 8.0 fL 9.8-13 L 17968-2) NRBC/100 WBC (test See_Comment [Automat ed code = 0117393355) message] The system which generated this result transmitted reference range : 0.0 - 10.0 /100 WBCs. The refer ence range was not u sed to interpret th is result as normal/abnormal . NRBC x10^3 (test code <0.01 See_Comment [Auto mated = 5066584391) message] The s ystem which generated this result transmitted reference range : 10*3/?L. The reference range was not used to interpret this result as normal/abnormal . GRAN MAT (NEUT) % 69.1 % (test code = 770-8) IMM GRAN % (test code 2.20 % = 9934775978) LYMPH % (test code = 20.9 % 736-9) MONO % (test code = 5.8 % 5905-5) EOS % (test code = 1.0 % 713-8) BASO % (test code = 1.0 % 706-2) GRAN MAT x10^3(ANC) 6.51 10*3/uL 1.99-6.95 (test code = 3413021486) IMM GRAN x10^3 (test 0.21 10*3/uL 0-0.06 H code = 6398992350) LYMPH x10^3 (test code 1.97 10*3/uL 1.09-3.23 = 731-0) MONO x10^3 (test code 0.55 10*3/uL 0.36-1.02 = 742-7) EOS x10^3 (test code = 0.09 10*3/uL 0.06-0.53 711-2) BASO x10^3 (test code 0.09 10*3/uL 0.01-0.09 = 704-7) BASO STIPPLING (test Present A code = 703-9) BANDS (test code = Increased A 7019165637) TOXIC CHANGES (test Present A code = 803-7) Lab Interpretation Abnormal (test code = 08937-7) [facility] Metabolic Panel (NA, K, CL, CO2, GLUCOSE, BUN, CREATININE, CA)2020-08-22 11:12:00 Test Item Value Reference Range Interpretation Comments NA (test code = 135 mmol/L 135-145 2734799721) K (test code = 3.6 mmol/L 3.5-5 7918288404) CL (test code = 99 mmol/L 98-108 7961124652) CO2 TOTAL (test code = 31 mmol/L 23-31 2516089501) AGAP (test code = 2-16 5097083329) BUN (test code = 9 mg/dL 7-23 9506319589) GLUCOSE (test code = 198 mg/dL 70-110 H 3394376690) CREATININE (test code = 0.72 mg/dL 0.6-1.25 4798923586) CALCIUM (test code = 8.3 mg/dL 8.6-10.6 L 4798618504) eGFR Calculation mL/min/1.73m2 (Non-) (test code = 4418365685) eGFR Calculation mL/min/1.73m2 () (test code = 3459696173) JAMES (test code = JAMES) Association of [...] tests). Lab Interpretation Abnormal (test code = 26423-2) [facility] HospitalMagnesium [id number] 11:12:00 Test Item Value Reference Range Interpretation Comments MAGNESIUM (test code = 1464535151) 2.0 mg/dL 1.7-2.4 Lab Interpretation (test code = Normal 89059-5) [facility] HospitalLipid Panel (Total Cholesterol, Triglycerides, HDL) - [id number] 11:12:00 Test Item Value Reference Range Interpretation Comments CHOL (test code = 155 mg/dL 120-200 2818226532) HDL (test code = 42 mg/dL >40 6004845658) HDLC RATIO (test code = See_Comment [Au tomated message] 9249994334) The system [employer] generated this result transmit ronan reference range : <=5.0. The refe rence range was not u sed to interpret th is result as normal/abnormal . TRIG (test code = 186 mg/dL 30-170 H 5763846465) LDL CHOL (test code = 76 mg/dL See_Comment [Auto mated message] 48026-5) The system [employer] generated this result transmit ronan reference range : <=160. The refe rence range was not u sed to interpret th is result as normal/abnormal . VLDL (test code = 37 mg/dL 5-60 8451936825) Lab Interpretation (test Abnormal code = 62587-4) [facility] HospitalHEPATIC FUNCTION PANEL (32279) (ALB,T.PRO,BILI T,BU/BC,ALT,AST,ALK PHOS)2020-08-22 11:12:00 Test Item Value Reference Range Interpretation Comments TOTAL BILI (test code = 3601354745) 0.6 mg/dL 0.1-1.1 BILI UNCON (test code = 1476068797) 0.2 mg/dL 0.1-1.1 BILI CONJ (test code = 5649775238) 0.0 mg/dL 0-0.3 T PROTEIN (test code = 2793407280) 6.0 g/dL 6.3-8.2 L ALBUMIN (test code = 9896568508) 2.8 g/dL 3.5-5 L ALK PHOS (test code = 4901850409) 222 U/L 34-122 H ALTv (test code = 1742-6) 27 U/L 5-50 AST(SGOT) (test code = 0663485321) 30 U/L 13-40 Lab Interpretation (test code = Abnormal 60177-4) [facility] acute hospital GLUCOSE (AUTOMATED)2020-08-22 10:11:00 Test Item Value Reference Range Interpretation Comments POCT GLU (test code = 5846387881) 196 mg/dL 70-110 H Lab Interpretation (test code = Abnormal 10468-0) General acute hospital GLUCOSE (AUTOMATED)2020-08-22 07:15:00 Test Item Value Reference Range Interpretation Comments POCT GLU (test code = 2373900559) 183 mg/dL 70-110 H Lab Interpretation (test code = Abnormal 13362-6) General acute hospital GLUCOSE (AUTOMATED)2020-08-22 02:30:00 Test Item Value Reference Range Interpretation Comments POCT GLU (test code = 5312321643) 295 mg/dL 70-110 H Lab Interpretation (test code = Abnormal 48023-2) General acute hospital GLUCOSE (AUTOMATED)2020-08-21 23:46:00 Test Item Value Reference Range Interpretation Comments POCT GLU (test code = 1076765405) 258 mg/dL 70-110 H Lab Interpretation (test code = Abnormal 46102-0) [facility] HospitalC-REACTIVE [id number] 18:50:00 Test Item Value Reference Range Interpretation Comments CRP (test code = 5796260266) 15.5 mg/dL <0.8 H Lab Interpretation (test code = Abnormal 16472-2) General acute hospital GLUCOSE (AUTOMATED)2020-08-21 18:21:00 Test Item Value Reference Range Interpretation Comments POCT GLU (test code = 3555805504) 297 mg/dL 70-110 H Lab Interpretation (test code = Abnormal 65287-5) [facility] HospitalETHANOL2020-11-09 16:24:00 Test Item Value Reference Range Interpretation Comments ALCOHOL (test code = <10 mg/dL 1225682761) JAMES (test code = Toxic Greater than or JAMES) equal to 80 mg/dL. NOTE: Whole blood values are approximately 10% to 15% lower than serum and plasma. [facility]/CLC ONLY - URINE DRUG (IMMUNOASSAY) - 4 ER [id number] 15:36:00 Test Item Value Reference Range Interpretation Comments AMPHET (test code = Negative Negative 8425433718) Cocaine Metabolite (test Negative Negative code = 9596326095) OPIATES (test code = Presumptive Positive Negative A 0805587777) THC (test code = Negative Negative 0053959975) JAMES (test code = JAMES) Urine Drug Cutoff Ranges Amphetamine: ? 1,000 ng/mLCocaine: ? 150 ng/mLOpiates: ? 300 ng/mLCannabinoids: ?50 ng/mL The results are to be used only for medical (i.e., treatment) purposes. Unconfirmed screening results must not be used for non-medical purposes (e.g., employment testing, legal testing). Lab Interpretation (test Abnormal code = 30533-9) [facility] ONLY - SYPHILIS [id number] 15:04:00 Test Item Value Reference Range Interpretation Comments Syphilis IgG/IgM (test Non-reactive Non-reactive code = 70599-8) JAMES (test code = JAMES) Non-reactive - No serologic evidence of T. pallidum infection. Cannot exclude incubating or early syphilis. Submit a second specimen in 2-4 weeks if syphilis is clinically suspected. Equivocal - Further testing to follow. Reactive - Further testing to follow. Lab Interpretation (test Normal code = 08251-9) [facility] HospitalUrinalysis2020-11-09 14:52:00 Test Item Value Reference Range Interpretation Comments APPEARANCE (test code = Clear Clear 2056160228) COLOR (test code = Yellow Yellow 5753857155) PH (test code = 4.8-8.0 1445014061) SP GRAVITY (test code = 1.003-1.030 5163132968) GLU U QUAL (test code = 500 mg/dL Normal A 2328861336) BLOOD (test code = Negative Negative 2742281423) KETONES (test code = 20 mg/dL Negative A 1325978407) PROTEIN (test code = Negative Negative 2887-8) UROBILIN (test code = Normal Normal 8719063402) BILIRUBIN (test code = Negative Negative 9278492825) NITRITE (test code = Negative Negative 9498672938) LEUK RYAN (test code = Negative Negative 2217606304) RBC/HPF (test code = <1 See_Comment [Autom ated message] 4765563402) The system [employer] generated this result transmit ronan reference range : 0 - 3 HPF. The refe rence range was not u sed to interpret th is result as normal/abnormal . WBC/HPF (test code = See_Comment [Autom ated message] 9828083240) The system [employer] generated this result transmit ronan reference range : 0 - 5 HPF. The refe rence range was not u sed to interpret th is result as normal/abnormal . BACTERIA (test code = Negative Negative 1427260477) MUCOUS (test code = Slight Negative LPF A 0248997300) Lab Interpretation (test Abnormal code = 04019-5) [facility] HospitalACTIVATED PARTIAL THRMPLAS [id number] 13:45:00 Test Item Value Reference Range Interpretation Comments APTT Patient (test code = See_Comment [ Automated message] 3173-2) The system whic h generated this result transmitted ref erence range: 26 - 36 Seconds. The re ference range was not u sed to interpret this result as normal/abnor mal. Lab Interpretation (test Normal code = 35201-7) [facility] HospitalPOCT GLUCOSE (AUTOMATED)2020-08-21 13:45:00 Test Item Value Reference Range Interpretation Comments POCT GLU (test code = 2331284376) 246 mg/dL 70-110 H Lab Interpretation (test code = Abnormal 17636-3) [facility] HospitalHIV 1/2 AG-AB WITH [id number] 12:32:00 Test Item Value Reference Range Interpretation Comments HIV Negative Negative Semi-quantitative (test code = 71777-2) JAMES (test code = Non-reactive for HIV-1 JAMES) antigen and HIV-1/HIV-2 antibodies. ?No laboratory evidence of HIV infection. ?Repeat in 2-4 weeks if acute HIV infection is suspected. [facility] HospitalCBC WITH [id number] 12:18:00 Test Item Value Reference Range Interpretation Comments WBC (test code = See_Comment [Automated 9890-2) message] The sy stem which generated this [...] RDW-SD (test code = 44.4 fL 38.5-51.6 36358-9) RDW-CV (test code = 14.5 % 12.1-15.4 788-0) PLT (test code = See_Comment H [Automated 777-3) message] The sy stem which generated this result transmitted reference range : 150 - 328 10*3/ ?L. The reference r torito was not used to interpret this result as normal/abnormal . MPV (test code = 8.5 fL 9.8-13 L 49340-7) NRBC/100 WBC (test See_Comment [Automat ed code = 8961634013) message] The system which generated this result transmitted reference range : 0.0 - 10.0 /100 WBCs. The refer ence range was not u sed to interpret th is result as normal/abnormal . NRBC x10^3 (test code <0.01 See_Comment [Auto mated = 3746396586) message] The s ystem which generated this result transmitted reference range : 10*3/?L. The reference range was not used to interpret this result as normal/abnormal . GRAN MAT (NEUT) % 90.4 % (test code = 770-8) IMM GRAN % (test code 1.30 % = 7979023227) LYMPH % (test code = 7.1 % 736-9) MONO % (test code = 0.5 % 5905-5) EOS % (test code = 0.1 % 713-8) BASO % (test code = 0.6 % 706-2) GRAN MAT x10^3(ANC) 7.74 10*3/uL 1.99-6.95 H (test code = 2957686851) IMM GRAN x10^3 (test 0.11 10*3/uL 0-0.06 H code = 5432658423) LYMPH x10^3 (test code 0.61 10*3/uL 1.09-3.23 L = 731-0) MONO x10^3 (test code 0.04 10*3/uL 0.36-1.02 L = 742-7) EOS x10^3 (test code = <0.03 0.06-0.53 L 711-2) BASO x10^3 (test code 0.05 10*3/uL 0.01-0.09 = 704-7) POLYCHROMASIA (test 2+ See_Comment [Automa ronan code = 69864-1) message] The system which generated this result transmitted reference range : 2+. The referen ce range was not u sed to interpret th is result as normal/abnormal . BANDS (test code = Increased A 5996062469) Lab Interpretation Abnormal (test code = 35430-5) [facility]IN2020-[facility]-09 11:48:00 Test Item Value Reference Range Interpretation Comments Procalcitonin (test 0.36 ng/mL <0.07 H code = 2219561373) JAMES (test code = JAMES) INTERPRETATION OF [...] biotics/default.asp Lab Interpretation Abnormal (test code = 09986-4) [facility] HospitalLANJATE [id number] 10:53:00 Test Item Value Reference Range Interpretation Comments LDH (test code = 0184099981) 351 U/L 300-600 Lab Interpretation (test code = Normal 05978-0) [facility] HospitalSEDIMENTATION [id number] 10:07:00 Test Item Value Reference Range Interpretation Comments ESR (test code = See_Comment H [Automated message] 8332149435) The system [employer] generated this result transmitted ref erence range: 0 - 10 m m/HR. The reference r torito was not used to interpret this result as normal/abnor mal. Lab Interpretation (test Abnormal code = 16029-8) [facility] HospitalPO[facility] GLUCOSE (AUTOMATED)2020-08-21 09:45:00 Test Item Value Reference Range Interpretation Comments POCT GLU (test code = 5843061602) 287 mg/dL 70-110 H Lab Interpretation (test code = Abnormal 99332-2) [facility] HospitalGlycosylated Hemoglobin (A1C)2020-08-21 09:29:00 Test Item Value Reference Range Interpretation Comments HGB A1C (test code = 4548-4) 9.8 % 4-6 H Lab Interpretation (test code = Abnormal 34068-8) [facility] HospitalCOVID-19 (ID NOW RAPID TESTING)2020-08-21 09:13:00 Test Item Value Reference Range Interpretation Comments SARS-CoV-2 Rapid ID NOW Not Detected Not Detected (test code = 21616-4) JAMES (test code = JAMES) ID NOW COVID-19 Assay is an isothermal nucleic acid amplification test intended for the qualitative detection of nucleic acid from SARS-CoV-2 viral RNA in nasopharyngeal ([employer]) specimens. It is used under Emergency Use [...] indicated. Lab Interpretation Normal (test code = 53169-5) [facility] HospitalProthrombin Time / [id number] 08:59:00 Test Item Value Reference Range Interpretation Comments PROTIME PATIENT (test See_Comment H [Auto mated message] code = 5964-2) The system [employer] generated this result transmitted ref erence range: 10.1 - 1 2.6 Seconds. The reference range was not used to int erpret this result as normal/abnormal . INR (test code = 6301-6) Nor mal INR <1.1; Warfarin Therap eutic range 2.0 to 3. 0 or 2.5 to 3.5, dep ending upon the indica tions. Lab Interpretation (test Abnormal code = 59261-2) [facility] HospitalaPTT2020-11-09 08:59:00 Test Item Value Reference Range Interpretation Comments APTT Patient (test code = See_Comment [ Automated message] 3173-2) The system [employer] generated this result transmitted ref erence range: 26 - 36 Seconds. The re ference range was not u sed to interpret this result as normal/abnor mal. Lab Interpretation (test Normal code = 57903-9) [facility] (NA, K, CL, CO2, GLUCOSE, BUN, CREATININE, CA)2020-08-21 08:52:00 Test Item Value Reference Range Interpretation Comments NA (test code = 136 mmol/L 135-145 2543591135) K (test code = 4.3 mmol/L 3.5-5 2937552891) CL (test code = 104 mmol/L 98-108 4212975193) CO2 TOTAL (test code = 24 mmol/L 23-31 8519046620) AGAP (test code = 2-16 5413120622) BUN (test code = 8 mg/dL 7-23 0376135675) GLUCOSE (test code = 308 mg/dL 70-110 H 0597089850) CREATININE (test code = 0.72 mg/dL 0.6-1.25 0929631826) CALCIUM (test code = 7.8 mg/dL 8.6-10.6 L 4509988235) eGFR Calculation mL/min/1.73m2 (Non-) (test code = 9037444238) eGFR Calculation mL/min/1.73m2 () (test code = 1474828218) JAMES (test code = JAMES) Association of [...] tests). Lab Interpretation Abnormal (test code = 19922-2) [facility] HospitalHEPATIC FUNCTION PANEL (17969) (ALB,T.PRO,BILI T,BU/BC,ALT,AST,ALK PHOS)2020-08-21 08:52:00 Test Item Value Reference Range Interpretation Comments TOTAL BILI (test code = 0537529725) 0.8 mg/dL 0.1-1.1 BILI UNCON (test code = 2099337861) 0.3 mg/dL 0.1-1.1 BILI CONJ (test code = 1086262680) 0.0 mg/dL 0-0.3 T PROTEIN (test code = 7795894084) 5.7 g/dL 6.3-8.2 L ALBUMIN (test code = 3975363005) 2.7 g/dL 3.5-5 L ALK PHOS (test code = 6512150553) 245 U/L 34-122 H ALTv (test code = 1742-6) 37 U/L 5-50 AST(SGOT) (test code = 1314185364) 43 U/L 13-40 H Lab Interpretation (test code = Abnormal 98832-6) [facility]
[2023-08-04] MEDS ORDERED: ONDANSETRON 4 MG/2 ML VIAL ONE (03:03)
[2023-08-04] MEDS ORDERED: LEVETIRACETAM 500 MG/5 ML VIAL IV ONE (03:17)
[2023-08-04] MEDS ORDERED: NA CHLORIDE 0.9% 100 ML ONE (03:17)
[2023-08-04] MEDS ORDERED: Ringers Lactate 1,000 ML IV ONE (03:17)
[2023-08-04 03:41] LABS: Absolute Lymphocytes (CBC) 1.9 K/uL (0.7-4.9); Lymphocytes % 21.6 % (15.3-44.8); MCV 86.9 fL (80-100); MPV 6.3 fL (7.6-11.3); Platelets 317 thou/uL (152-406); RBC Red Blood Cell Count 4.26 M/uL (4.33-5.43)
[2023-08-04 03:57] LABS: Potassium 3.8 mEq/L (3.5-5.1)
--- NOTE | 2023-08-04 05:43 | EDPHYS ---
Physician Documentation [facility] Name: Kiel Ngo Age: 72 yrs Sex: Male : 1950 Arrival Date: 08/04/2023 Time: 02:48 Bed 20 Private MD: ED Physician Scotty Guzman HPI: 08/04 03:06 This 72 yrs old Male presents to ER via EMS with complaints of Seizure. ms3 03:06 72-year-old male with past medical history of atrial fibrillation, chronic back pain, ms3 chronic right leg pain, lymphedema, neuropathy, seizures presents to the emergency department via [facility] for seizure. Patient's stated to EMS patient had full body jerking seizure that lasted approximately 10 minutes. Patient's states patient is noncompliant with his seizure medications. EMS noted patient's blood pressure to be 177/98, heart rate 133, respiratory rate 19. Unable to obtain HPI from patient due to altered mental status.. Historical: - Allergies: 02:54 Demerol; ap3 02:54 metformin; ap3 - PMHx: 02:54 Atrial fibrillation; chronic back pain; Chronic right leg pain; lymphedema; neuropathy; ap3 - PSHx: 02:54 back sx; PANCREAS SX; R. Ankle SX; ap3 ROS: 03:06 Unable to obtain ROS due to altered mental status, ms3 Exam: 03:06 Constitutional: This is a well developed, well nourished patient who is awake, alert, ms3 and in no acute distress. Head/Face: Normocephalic, atraumatic. Neck: Trachea midline, no cervical lymphadenopathy. Supple, full range of motion without nuchal rigidity, or vertebral point tenderness. No Meningismus. Chest/axilla: Normal chest wall appearance and motion. Nontender with no deformity. 03:06 Abdomen/GI: Soft, non-tender, with normal bowel sounds. No distension or tympany. No guarding or rebound. No evidence of tenderness throughout. Skin: Warm, dry with normal turgor. Normal color with no rashes, no lesions, and no evidence of cellulitis. 03:06 Cardiovascular: Rate: tachycardic, Rhythm: regular, Pulses: no pulse deficits are appreciated, 03:06 Neuro: seizure activity, Shortly after arriving to the emergency department room patient developed right gaze, turned his head to the right, and his right arm began shaking. Patient remained with fixed right gaze during episode that lasted 3 minutes., Vital Signs: 02:52 BP 178 / 100; Pulse 130; Temp 97.7; Pulse Ox 96% on R/A; ap3 04:30 BP 158 / 84; Pulse 117; Resp 12; Pulse Ox 95% on R/A; jb4 05:45 BP 146 / 101; Pulse 124; Resp 14; Pulse Ox 98% on R/A; jb4 06:39 BP 143 / 68; Pulse 124; Resp 18; Pulse Ox 99% on R/A; jb4 07:26 BP 146 / 72; Pulse 122; Resp 14 S; Pulse Ox 98% on R/A; kc6 08:21 BP 139 / 83; Pulse 113; Resp 14 S; Pulse Ox 96% on R/A; Pain 0/10; kc6 08:21 Pain Scale: Adult kc6 Gayathri Coma Score: 07:00 Eye Response: spontaneous(4). Motor Response: obeys commands(6). Verbal Response: kc6 confused(4). Total: 14. MDM: 02:55 Patient medically screened. ms3 03:06 Differential diagnosis: cerebral vascular accident, cardiac arrhythmia, seizure. ms3 03:48 Independent interpretation of the following test(s) in the Emergency Department CT ms3 Scan: My interpretation is CT brain without contrast images reviewed do not reveal ICH. 05:54 Data reviewed: vital signs, nurses notes, lab test result(s), radiologic studies, CT ms3 scan, and as a result, I will transfer patient. Consideration of Admission/Observation Will transfer patient to hospital with EEG capability. I considered the following discharge prescriptions or medication management in the emergency department Medications were administered in the Emergency Department. See MAR. Counseling: I had a detailed discussion with the patient and/or guardian regarding the historical points, exam findings, and any diagnostic results supporting the discharge/admit diagnosis, lab results, radiology results, the need to transfer to another facility, for higher level of care. Response to treatment: the patient's symptoms have mildly improved after treatment, and as a result, I will transfer patient. ED course: Patient with mild improvement in mental status to A/O x1-person. Patient has not had seizure since initial seizure in the emergency department. Patient was given 1 mg Ativan and 1 g of Keppra IV. Discussed necessity of transfer to facility with EEG capability with patient's . She understands and agrees with plan.. 06:15 ED course: Discussed case with Dr Lyle and he will consult on patient. Patient to be ms3 admitted to the hospitalist. They will call back.. 06:43 ED course: Discussed case with Dr Berry and he accepts patient at [facility].. 08/04 03:34 Order name: Basic Metabolic Panel; Complete Time: 04:09 EDMS 08/04 03:34 Order name: CBC with Automated Diff; Complete Time: 04:09 EDMS 08/04 05:41 Order name: Urinalysis w/ reflexes; Complete Time: 08:14 ms3 08/04 02:56 Order name: CT Head Brain wo Cont ms3 08/04 03:33 Order name: Head Brain Wo Cont EDMS 08/04 03:15 Order name: Cardiac monitoring; Complete Time: 03:45 ms3 Administered Medications: 02:40 Drug: Ativan IVP 1 mg IVP once Route: IVP; Site: left hand; jb4 02:53 Drug: Ondansetron IVP 4 mg IVP once; over 2 minutes Route: IVP; Site: left hand; jb4 03:10 Drug: Lactated Ringers Solution IV 1000 ml IV at bolus bolus Route: IV; Rate: bolus; jb4 Site: left hand; 03:15 Drug: Keppra IV 1000 mg IV at calculated rate once Route: IV; Rate: calculated rate; jb4 Site: left hand; Disposition: 06:44 Chart complete. ms3 Disposition Summary: 08/04/23 05:42 Transfer Ordered Notes: Transfer Location: Other Acute Care Facility ms3 Reason: Higher level of care ms3 Condition: Stable ms3 Problem: new ms3 Symptoms: are unchanged ms3 Accepting Physician: Jag VILLAREAL(08/04/23 08:53) kc6 Diagnosis - Other seizures ms3 - Altered mental status, unspecified ms3 - Essential (primary) hypertension ms3 - Anemia, unspecified ms3 Forms: - Medication Reconciliation Form ms3 - SBAR form ms3 Signatures: Dispatcher [employer] EDAnkit Neville RN RN jb4 Katharine Boogie RN RN ap3 Scotty Guzman DO DO ms3 Roxane Osei, PROFESSOR OF PHYSICAL EDUCATION PROFESSOR OF PHYSICAL EDUCATION jh7 Britta Holcomb, RN RN kc6 Corrections: (The following items were deleted from the chart) 05:57 05:54 ED course: Patient with mild improvement in mental status. Patient has not had ms3 seizure since initial seizure in the emergency department. Patient was given 1 mg Ativan and 1 g of Keppra IV. Discussed necessity of transfer to facility with EEG capability with patient's . She understands and agrees with plan.. ms3 05:58 05:42 Accepting MD song ms3 06:21 06:06 CBC+H.LAB.BRZ ordered. EDMS EDMS 06:21 06:06 BASIC METABOLIC PANEL+C.LAB.BRZ ordered. EDMS EDMS 08:53 05:58 Accepting ms3 kc6
--- NOTE | 2023-08-04 05:43 | ER ---
Nurse's Notes [facility] Name: Kiel Ngo Age: 72 yrs Sex: Male : 1950 Arrival Date: 08/04/2023 Time: 02:48 Bed 20 Private MD: Diagnosis: Other seizures;Altered mental status, unspecified;Essential (primary) hypertension;Anemia, unspecified Presentation: 08/04 02:52 Chief complaint: EMS states: they were called to the patients residence by his for ap3 a seizure that was lasting approx 10 minutes. Coronavirus screen: At this time, the client does not indicate any symptoms associated with coronavirus-19. Ebola Screen: No symptoms or risks identified at this time. Initial Sepsis Screen: Does the patient meet any 2 criteria? HR > 90 bpm. Does the patient have a suspected source of infection? No. Patient's initial sepsis screen is negative. Risk Assessment: Do you want to hurt yourself or someone else? Patient reports no desire to harm self or others. Onset of symptoms was August 04, 2023. 02:52 Method Of Arrival: EMS: [facility] ap3 02:52 Acuity: JOZEF 2 ap3 Historical: - Allergies: 02:54 Demerol; ap3 02:54 metformin; ap3 - PMHx: 02:54 Atrial fibrillation; chronic back pain; Chronic right leg pain; lymphedema; neuropathy; ap3 - PSHx: 02:54 back sx; PANCREAS SX; R. Ankle SX; ap3 Screenin:[address] [facility] ED Fall Risk Assessment (Adult) History of falling in the last 3 months, kc6 including since admission No falls in past 3 months (0 pts) Confusion or Disorientation Yes (5 pts) Intoxicated or Sedated No (0 pts) Impaired Gait Yes (1 pt) Mobility Assist Device Used Yes (1 pt) Altered Elimination Yes (1 pt) Score/Fall Risk Level 3 or more points = High Risk. Abuse screen: Denies threats or abuse. Denies injuries from another. Nutritional screening: No deficits noted. Tuberculosis screening: No symptoms or risk factors identified. Assessment: 03:00 General: Appears in no apparent distress. uncomfortable, Behavior is calm, cooperative. jb4 Pain: Unable to use pain scale. Patient is disoriented. Neuro: Level of Consciousness is lethargic, Oriented to none. Cardiovascular: Patient's skin is warm and dry. Respiratory: Airway is patent Respiratory effort is even, unlabored, Respiratory pattern is regular, symmetrical. GI: No signs and/or symptoms were reported involving the gastrointestinal system. : No signs and/or symptoms were reported regarding the genitourinary system. EENT: No signs and/or symptoms were reported regarding the EENT system. Derm: Skin is intact, Skin is pink, warm \T\ dry. Musculoskeletal: Circulation, motion, and sensation intact. Range of motion: intact in all extremities. 04:17 Reassessment: Pt is now more alert. Is starting to verbally respond, respirations are jb4 even and unlabored with no s/s of pain or distress noted. 05:14 Reassessment: Pt is resting in bed with eyes closed, respirations are even and jb4 unlabored with no s/s of pain or distress noted. 06:39 Reassessment: Remains A\T\Ox1 now knows where he is at, unable to answer other questions. jb4 07:00 General: Appears in no apparent distress. comfortable, Behavior is calm, cooperative, kc6 appropriate for age. Neuro: Level of Consciousness is awake, alert, obeys commands, Oriented to person, place, situation, Appropriate for age. 08:00 Reassessment: Patient appears in no apparent distress at this time. No changes from kc6 previously documented assessment. Vital Signs: 02:52 BP 178 / 100; Pulse 130; Temp 97.7; Pulse Ox 96% on R/A; ap3 04:30 BP 158 / 84; Pulse 117; Resp 12; Pulse Ox 95% on R/A; jb4 05:45 BP 146 / 101; Pulse 124; Resp 14; Pulse Ox 98% on R/A; jb4 06:39 BP 143 / 68; Pulse 124; Resp 18; Pulse Ox 99% on R/A; jb4 07:26 BP 146 / 72; Pulse 122; Resp 14 S; Pulse Ox 98% on R/A; kc6 08:21 BP 139 / 83; Pulse 113; Resp 14 S; Pulse Ox 96% on R/A; Pain 0/10; kc6 08:21 Pain Scale: Adult kc6 Gayathri Coma Score: 07:00 Eye Response: spontaneous(4). Motor Response: obeys commands(6). Verbal Response: kc6 confused(4). Total: 14. ED Course: 02:40 Inserted saline lock: 18 gauge in left hand, using aseptic technique. jb4 02:51 Patient arrived in ED. jj6 02:52 Ankit Hall, RN is Primary Nurse. jb4 02:54 Triage completed. ap3 02:55 Scotty Guzman DO is Attending Physician. ms3 02:57 Arm band placed on right wrist. ap3 03:55 Head Brain Wo Cont In Process Unspecified. EDMS 07:00 Patient has correct armband on for positive identification. Placed in gown. Bed in low kc6 position. Call light in reach. Side rails up X2. Adult w/ patient. Seizure precautions initiated. Client placed on continuous cardiac and pulse oximetry monitoring. NIBP monitoring applied. marketing operations consultant on. 07:00 Report received from DIEGO Sheikh. kc6 07:24 transfer initiated by overnight cashier to [facility], pt accepted in transfer to [facility] by dr lutz, admin approval given by Selina Raymond. 08:40 No provider procedures requiring assistance completed. Patient transferred, IV remains kc6 in place. Administered Medications: 02:40 Drug: Ativan IVP 1 mg IVP once Route: IVP; Site: left hand; jb4 02:53 Drug: Ondansetron IVP 4 mg IVP once; over 2 minutes Route: IVP; Site: left hand; jb4 03:10 Drug: Lactated Ringers Solution IV 1000 ml IV at bolus bolus Route: IV; Rate: bolus; jb4 Site: left hand; 03:15 Drug: Keppra IV 1000 mg IV at calculated rate once Route: IV; Rate: calculated rate; jb4 Site: left hand; Medication: 08:41 VIS not applicable for this client. kc6 Outcome: 05:42 ER care complete, transfer ordered by . ms3 08:40 Transferred by ground EMS to [facility], Transfer form completed. kc6 Note: report called to DIEGO Ott. pt with EMS 08:40 Condition: stable 08:40 Instructed on the need for transfer, 08:53 Patient left the ED. kc6 Signatures: Dispatcher [employer] EDME Karin Solorzano James, RN RN jb4 Katharine Boogie, DIEGO RN ap3 Scotty Guzman DO DO ms3 Roxane Chappell jj6 Britta Holcomb, RN RN kc6
[2023-08-04 07:27] LABS: Specific Gravity 1.013 (1.005-1.030); Urine Bilirubin NEGATIVE (Negative); Urine Blood Negative (Negative); Urine Clarity Clear (Clear); Urine Color Light-Yellow (Yellow); Urine Glucose NEGATIVE (Negative); Urine Protein NEGATIVE (Negative); Urine Urobilinogen Normal (Normal)
--- NOTE | 2023-08-04 12:39 | RAD REPORT ---
EXAM DESCRIPTION: CT - Head Brain Wo Cont - 08/04/2023 6:55 am CLINICAL HISTORY: SEIZURE COMPARISON: 01/28/2023. TECHNIQUE: CT HEAD WITHOUT IV CONTRAST on 08/04/2023 12:00 AM CDT This exam was performed according to our departmental dose-optimization program, which includes autom ated exposure control, adjustment of the mA and/or kV according to patient size and/or use of iterati ve reconstruction technique. FINDINGS: There is no acute hemorrhage, mass effect or midline shift. There are multiple areas of en cephalomalacia in the posterior cerebellum. There is encephalomalacia within the medial left frontal lobe. There is no hydrocephalus. There is mild diffuse cerebral atrophy. The calvarium is intact. Orbits and globes are unremarkable. The paranasal sinuses are clear. Mastoid air cells are clear. IMPRESSION: No acute intracranial findings. Electronically signed by: Jaiden Malone MD 08/04/2023 5:30 AM CDT Due to temporary technical issues with the PACS/Fluency reporting system, reports are being signed by the in house radiologist without review as a courtesy to ensure prompt reporting. The interpreting r adiologist is fully responsible for the content of the report.
== END 2023-08-04 08:53 ==
LOC: ER 02:48
DX: G40.89 Other seizures (principal); R41.82 Altered mental status, unspecified; I10 Essential (primary) hypertension; D64.9 Anemia, unspecified; I48.91 Unspecified atrial fibrillation; Z88.5 Allergy status to narcotic agent; Z88.8 Allergy status to other drugs, medicaments and biological substances
CPT/HCPCS: 85025; 80048; 36415; 81003; 70450; 96375; 96374; 99285; J1953; J2405; J7120

== ENCOUNTER 2024-01-28 15:36 | Observation (INO) | payer OTHER ==
[2024-01-28] MEDS ORDERED: NA CHLORIDE 0.9% 500 ML ONE (15:47)
[2024-01-28] MEDS ORDERED: NA CHLORIDE 0.9% 2,000 ML ONE (15:47)
[2024-01-28 16:24] LABS: Absolute Basophils 0.1 K/uL (0-0.5); Absolute Eosinophils 0.4 K/uL (0-0.5); Absolute Lymphocytes (CBC) 2.5 K/uL (0.7-4.9); Absolute Monocytes 0.6 K/uL (0.1-1.3); Absolute Neutrophil 5.4 K/uL (1.8-8.0); Basophils % 0.6 % (0-1.3); Eosinophils % 4.2 % (0-4.4); Hematocrit 37.3 % (39.6-49.0); Hemoglobin 12.2 g/dL (13.6-17.9); Lymphocytes % 28.2 % (15.3-44.8); MCH 29.5 pg (27.0-35.0); MCHC 32.7 g/dL (32.0-36.0); MCV 90.1 fL (80-100); MPV 6.2 fL (7.6-11.3); Monocytes % 6.8 % (3.3-12.3); Neutrophils % 60.2 % (41.7-73.7); Platelets 434 thou/uL (152-406); RBC Red Blood Cell Count 4.14 M/uL (4.33-5.43); Red Cell Distribution Width 14.9 % (12.1-15.2)
[2024-01-28 16:40] LABS: Albumin 3.2 g/dL (3.4-5.0); Albumin/Globulin Ratio 0.8 (1.1-1.8); Anion Gap 6.1 mEq/L (5.0-15.0); Bilirubin Total 0.4 mg/dL (0.2-1.0); Potassium 4.1 mEq/L (3.5-5.1); Protein, Total 7.2 g/dL (6.4-8.2)
[2024-01-28 17:03] LABS: PT Prothrombin Time 12.2 SECONDS (9.5-12.5); Protime INR 1.11
[2024-01-28] MEDS ORDERED: VANCOMYCIN 1 GM/VIAL ONE (17:57)
[2024-01-28] MEDS ORDERED: NA CHLORIDE 0.9% 250 ML ONE (17:57)
--- NOTE | 2024-01-28 18:16 | EDPHYS ---
Physician Documentation [facility] Name: Kiel Ngo Age: 73 yrs Sex: Male : 1950 Arrival Date: 01/28/2024 Time: 15:36 Bed 20 Private MD: ED Physician Rosa Harrison HPI: 01/27 15:40 This 73 yrs old Male presents to ER via Unassigned with complaints of Rash, back pain. sp3 15:40 72-year-old male with history of atrial fibrillation, chronic back pain, chronic hip sp3 pain, chronic pain syndrome, neuropathy presents to the ED with chief complaint rash on his groin along with some itching. No other complaints other than his chronic pain. He denies chest pain, shortness of breath, headache, trauma, fever, cough, or any other signs or symptoms on ROS at this time.. Historical: - Allergies: 15:43 Demerol; kc6 15:43 metformin; kc6 - PMHx: 15:43 Atrial fibrillation; chronic back pain; Chronic right leg pain; lymphedema; neuropathy; kc6 - PSHx: 15:43 back sx; PANCREAS SX; R. Ankle SX; kc6 - Immunization history:: Adult Immunizations unknown. - Infectious Disease History:: Denies. - Social history:: Smoking status: Patient denies any tobacco usage or history of. ROS: 16:09 Constitutional: Negative for fever, chills, and weight loss, Eyes: Negative for injury, sp3 pain, redness, and discharge, ENT: Negative for injury, pain, and discharge, Neck: Negative for injury, pain, and swelling, Cardiovascular: Negative for chest pain, palpitations, and edema, Respiratory: Negative for shortness of breath, cough, wheezing, and pleuritic chest pain, Abdomen/GI: Negative for abdominal pain, nausea, vomiting, diarrhea, and constipation, MS/Extremity: Negative for injury and deformity, Neuro: Negative for headache, weakness, numbness, tingling, and seizure, Allergy/Immunology: Negative for hives, rash, and allergies, Endocrine: Negative for neck swelling, polydipsia, polyuria, polyphagia, and marked weight changes, 16:09 All other systems are negative, sp3 Exam: 16:09 Constitutional: This is a well developed, well nourished patient who is awake, alert, sp3 and in no acute distress. Head/Face: Normocephalic, atraumatic. Eyes: Pupils equal round and reactive to light, extra-ocular motions intact. Lids and lashes normal. Conjunctiva and sclera are non-icteric and not injected. Cornea within normal limits. Periorbital areas with no swelling, redness, or edema. ENT: Nares patent. No nasal discharge, no septal abnormalities noted. External auditory canals are clear. Oropharynx with no redness, swelling, or masses, exudates, or evidence of obstruction, uvula midline. Mucous membranes moist. Neck: Trachea midline, no thyromegaly or masses palpated, and no cervical lymphadenopathy. Supple, full range of motion without nuchal rigidity, or vertebral point tenderness. No Meningismus. Chest/axilla: Normal chest wall appearance and motion. Nontender with no deformity. No lesions are appreciated. Cardiovascular: Regular rate and rhythm with a normal S1 and S2. No gallops, murmurs, or rubs. Normal PMI, no JVD. No pulse deficits. Respiratory: Lungs have equal breath sounds bilaterally, clear to auscultation and percussion. No rales, rhonchi or wheezes noted. No increased work of breathing, no retractions or nasal flaring. Abdomen/GI: Soft, non-tender, with normal bowel sounds. No distension or tympany. No guarding or rebound. No evidence of tenderness throughout. Neuro: Awake and alert, GCS 15, oriented to person, place, time, and situation. Cranial nerves II-XII grossly intact. Motor strength 5/5 in all extremities. Sensory grossly intact. Cerebellar exam normal. Normal gait. Psych: Awake, alert, with orientation to person, place and time. Behavior, mood, and affect are within normal limits. 16:09 Skin: Mild possible fungal rash noted on the scrotum and perianal area. No concerning skin exam findings. Otherwise exam is normal. Mild pressure ulcer perirectally appears without infection and is approximately 2 cm in diameter.. 16:11 ECG was reviewed by the Attending Physician. EKG demonstrates normal sinus rhythm at 87 sp3 bpm with normal intervals, normal QRS, normal axis, normal ST's ST segments without evidence of any ischemia. Vital Signs: 15:40 BP 81 / 58; Pulse 88; Resp 16 S; Temp 98.2(O); Pulse Ox 100% on R/A; Weight 87.54 kg; kc6 Height 5 ft. 11 in. (R); Pain 10/10; 16:14 BP 84 / 52; Pulse 89; Resp 16 S; Pulse Ox 99% on R/A; kc6 16:43 BP 80 / 50; Pulse 78; Resp 16 S; Pulse Ox 100% on R/A; kc6 16:54 BP 97 / 54; Pulse 67; Resp 16 S; Pulse Ox 100% on R/A; kc6 18:04 BP 101 / 53; Pulse 77; Resp 16 S; Pulse Ox 100% on R/A; kc6 18:34 BP 103 / 51; Pulse 85; Resp 16 S; Pulse Ox 99% on R/A; kc6 19:45 BP 95 / 57; Pulse 94; Resp 19 S; Pulse Ox 100% on R/A; MAP 68 mmHg; as6 15:40 Body Mass Index 26.92 (87.54 kg, 180.34 cm) kc6 15:40 Pain Scale: Adult kc6 MDM: 15:38 Patient medically screened. sp3 16:10 Data reviewed: vital signs, nurses notes, old medical records, lab test result(s), sp3 radiologic studies. ED course: 73-year-old male with PMH above now with groin rash. Per EMS, blood pressure was in the 80s to 90s systolic. Here is 81/58 with heart rate of 88 and afebrile. We will obtain laboratory values including lactate to ensure there is nothing else going on. Fluid bolus will also be given. Patient with no significant complaints. If workup is negative and vital signs improved, we will safely discharge him home on topical medications.. 17:24 ED course: Will treat with 1 g vancomycin to cover skin infection in case the groin sp3 rash is staph. Patient has multiple hospital visits in the past. Lactate of 2.3 and sodium at 129. Will place in observation and continue IV fluids with probable discharge tomorrow depending on inpatient hospitalist assessment.. 01/27 15:46 Order name: Blood Culture Adult (2) sp3 01/27 15:46 Order name: CBC with Diff; Complete Time: 17:04 sp3 01/27 15:46 Order name: CMP; Complete Time: 17:04 sp3 01/27 15:46 Order name: Lactate w/ 2H reflex if indic.; Complete Time: 17:04 sp3 01/27 15:46 Order name: Protime (+inr); Complete Time: 17:04 sp3 01/27 18:22 Order name: Urinalysis w/ reflexes EDMS 01/27 18:22 Order name: CBC with Automated Diff EDMS 01/27 18:22 Order name: CBC with Automated Diff EDMS 01/27 18:22 Order name: Comprehensive Metabolic Panel EDMS 01/27 18:22 Order name: Comprehensive Metabolic Panel EDMS 01/27 18:23 Order name: Chest Single View; Complete Time: 18:45 EDMS 01/27 15:46 Order name: EKG; Complete Time: 15:46 sp3 01/27 15:46 Order name: Cardiac monitoring; Complete Time: 16:14 sp3 01/27 15:46 Order name: EKG - Nurse/Tech; Complete Time: 16:14 sp3 01/27 15:46 Order name: IV Saline Lock - Large Bore; Complete Time: 16:14 sp3 01/27 15:46 Order name: Labs collected and sent; Complete Time: 15:46 sp3 01/27 15:46 Order name: O2 Sat Monitoring; Complete Time: 15:46 sp3 01/27 15:46 Order name: Vital Signs; Complete Time: 15:46 sp3 01/27 16:25 Order name: Labs - recollect needed: blue top please; Complete Time: 16:36 em1 Administered Medications: 16:14 Drug: NS 0.9% IV (30 ml/kg) 30 ml/kg IV at bolus once; Sepsis Protocol Route: IV; Rate: kc6 bolus; Site: right antecubital; 18:35 Follow up: Response: No adverse reaction; IV Status: Completed infusion; IV Intake: kc6 2500ml 18:04 Drug: vancoMYCIN IVPB 1 grams IVPB once over 2 hrs Route: IVPB; Infused Over: 2 hrs; kc6 Site: right antecubital; 19:47 Follow up: Response: No adverse reaction; IV Status: Completed infusion; IV Intake: as6 250ml 18:26 Drug: morphine IVP or IV 4 mg IVP once over 4 mins Route: IVP; Infused Over: 4 mins; kc6 Site: right antecubital; 19:47 Follow up: Response: No adverse reaction as6 18:26 Drug: Ondansetron IVP 4 mg IVP once; over 2 minutes Route: IVP; Site: right antecubital;kc6 19:47 Follow up: Response: No adverse reaction as6 Disposition Summary: 01/28/24 18:16 Hospitalization Ordered Notes: Hospitalization Status: Observation sp3 Provider: Jordan Cordoba sp3 Location: Telemetry/MedSurg (observation) sp3 Condition: Stable sp3 Problem: an acute exacerbation sp3 Symptoms: have worsened sp3 Bed/Room Type: Standard sp3 Room Assignment: 404(01/28/24 18:33) em1 Diagnosis - Hyponatremia, dehydration, lactic acidosis, fungal rash to groin sp3 Forms: - Medication Reconciliation Form sp3 - SBAR form sp3 - Leadership Thank You Letter sp3 Signatures: Dispatcher [employer] EDMS Saman Suarez em1 Rosa Harrison MD MD sp3 Britta Holcomb RN RN kc6 Adrian López RN as6 Corrections: (The following items were deleted from the chart) 15:46 15:46 BLOOD CULTURE*+BA.LAB.BRZ ordered. EDMS EDMS 15:46 15:46 CBC+H.LAB.BRZ ordered. EDMS EDMS 15:46 15:46 COMPREHENSIVE METABOLIC PANEL+C.LAB.BRZ ordered. EDMS EDMS 15:46 15:46 LACTATE+C.LAB.BRZ ordered. EDMS EDMS 15:46 15:46 PROTIME (+INR)+COAG.LAB.BRZ ordered. EDMS EDMS 16:09 15:40 72-year-old male with history of atrial fibrillation, chronic back pain, chronic sp3 hip pain, chronic pain syndrome, neuropathy presents to the ED with chief complaint. sp3 18:33 18:16 sp3 em1
--- NOTE | 2024-01-28 18:16 | ER ---
Nurse's Notes [facility] Name: Kiel Ngo Age: 73 yrs Sex: Male : 1950 Arrival Date: 01/28/2024 Time: 15:36 Bed 20 Private MD: Diagnosis: Hyponatremia, dehydration, lactic acidosis, fungal rash to groin Presentation: 01/27 15:40 Chief complaint: EMS states: they were toned out for right hip and lower back pain kc6 07/22. pt reports having bed sores. Coronavirus screen: At this time, the client does not indicate any symptoms associated with coronavirus-19. Ebola Screen: No symptoms or risks identified at this time. Initial Sepsis Screen: Does the patient meet any 2 criteria? No. Patient's initial sepsis screen is negative. Does the patient have a suspected source of infection? No. Patient's initial sepsis screen is negative. Risk Assessment: Do you want to hurt yourself or someone else? Patient reports no desire to harm self or others. Onset of symptoms was January 28, 2024. 15:40 Method Of Arrival: EMS: [facility] kc6 15:40 Acuity: JOZEF 3 kc6 Triage Assessment: 15:43 General: Appears in no apparent distress. comfortable, well groomed, well developed, kc6 Behavior is calm, cooperative, appropriate for age. Pain: Complains of pain in low back area and right leg Pain does not radiate. Pain currently is 10 out of 10 on a pain scale. EENT: No signs and/or symptoms were reported regarding the EENT system. Neuro: Level of Consciousness is awake, alert, obeys commands, Oriented to person, place, time, situation, Appropriate for age. Cardiovascular: Capillary refill < 3 seconds. Respiratory: Airway is patent Trachea midline Respiratory effort is even, unlabored, Respiratory pattern is regular, symmetrical. GI: No signs and/or symptoms were reported involving the gastrointestinal system. : No signs and/or symptoms were reported regarding the genitourinary system. Derm: Skin is healthy with good turgor, Skin is pink, warm \T\ dry. Musculoskeletal: Circulation, motion, and sensation intact. Capillary refill < 3 seconds, Range of motion: intact in all extremities. Historical: - Allergies: 15:43 Demerol; kc6 15:43 metformin; kc6 - PMHx: 15:43 Atrial fibrillation; chronic back pain; Chronic right leg pain; lymphedema; neuropathy; kc6 - PSHx: 15:43 back sx; PANCREAS SX; R. Ankle SX; kc6 - Immunization history:: Adult Immunizations unknown. - Infectious Disease History:: Denies. - Social history:: Smoking status: Patient denies any tobacco usage or history of. Screenin:44 [facility] ED Fall Risk Assessment (Adult) History of falling in the last 3 months, kc6 including since admission No falls in past 3 months (0 pts) Confusion or Disorientation No (0 pts) Intoxicated or Sedated No (0 pts) Impaired Gait Yes (1 pt) Mobility Assist Device Used Yes (1 pt) Altered Elimination Yes (1 pt) Score/Fall Risk Level 3 or more points = High Risk. Abuse screen: Denies threats or abuse. Denies injuries from another. Nutritional screening: No deficits noted. Tuberculosis screening: No symptoms or risk factors identified. Assessment: 15:44 Reassessment: please see triage. [facility] 16:43 Reassessment: Patient appears in no apparent distress at this time. No changes from [facility] previously documented assessment. Patient and/or family updated on plan of care and expected duration. Pain level reassessed. Patient is alert, oriented x 3, equal unlabored respirations, skin warm/dry/pink. 17:56 Reassessment: Patient appears in no apparent distress at this time. No changes from 6 previously documented assessment. Patient and/or family updated on plan of care and expected duration. Pain level reassessed. Patient is alert, oriented x 3, equal unlabored respirations, skin warm/dry/pink. 18:34 Reassessment: Patient appears in no apparent distress at this time. No changes from [facility] previously documented assessment. Patient and/or family updated on plan of care and expected duration. Pain level reassessed. Patient is alert, oriented x 3, equal unlabored respirations, skin warm/dry/pink. Vital Signs: 15:40 BP 81 / 58; Pulse 88; Resp 16 S; Temp 98.2(O); Pulse Ox 100% on R/A; Weight 87.54 kg; kc6 Height 5 ft. 11 in. (R); Pain 10/10; 16:14 BP 84 / 52; Pulse 89; Resp 16 S; Pulse Ox 99% on R/A; kc6 16:43 BP 80 / 50; Pulse 78; Resp 16 S; Pulse Ox 100% on R/A; kc6 16:54 BP 97 / 54; Pulse 67; Resp 16 S; Pulse Ox 100% on R/A; kc6 18:04 BP 101 / 53; Pulse 77; Resp 16 S; Pulse Ox 100% on R/A; kc6 18:34 BP 103 / 51; Pulse 85; Resp 16 S; Pulse Ox 99% on R/A; kc6 19:45 BP 95 / 57; Pulse 94; Resp 19 S; Pulse Ox 100% on R/A; MAP 68 mmHg; as6 15:40 Body Mass Index 26.92 (87.54 kg, 180.34 cm) kc6 15:40 Pain Scale: Adult kc6 ED Course: 15:38 Patient arrived in ED. as6 15:38 Rosa Harrison MD is Attending Physician. sp3 15:40 Britta Holcomb RN is Primary Nurse. kc6 15:43 Triage completed. kc6 15:43 Arm band placed on. kc6 15:44 Patient has correct armband on for positive identification. Placed in gown. Bed in low kc6 position. Call light in reach. Side rails up X2. Client placed on continuous cardiac and pulse oximetry monitoring. NIBP monitoring applied. Warm blanket given. 16:14 Inserted saline lock: 20 gauge in right antecubital area, using aseptic technique. kc6 Blood collected. 18:15 Jordan Cordoba MD is Hospitalizing Provider. sp3 18:58 Repositioned patient. Cleaned of incontinence. Linen changed. kc6 19:47 Provided Education on: need for admit. as6 19:47 No provider procedures requiring assistance completed. Patient admitted, IV remains in as6 place. Administered Medications: 16:14 Drug: NS 0.9% IV (30 ml/kg) 30 ml/kg IV at bolus once; Sepsis Protocol Route: IV; Rate: kc6 bolus; Site: right antecubital; 18:35 Follow up: Response: No adverse reaction; IV Status: Completed infusion; IV Intake: kc6 2500ml 18:04 Drug: vancoMYCIN IVPB 1 grams IVPB once over 2 hrs Route: IVPB; Infused Over: 2 hrs; kc6 Site: right antecubital; 19:47 Follow up: Response: No adverse reaction; IV Status: Completed infusion; IV Intake: as6 250ml 18:26 Drug: morphine IVP or IV 4 mg IVP once over 4 mins Route: IVP; Infused Over: 4 mins; kc6 Site: right antecubital; 19:47 Follow up: Response: No adverse reaction as6 18:26 Drug: Ondansetron IVP 4 mg IVP once; over 2 minutes Route: IVP; Site: right antecubital;kc6 19:47 Follow up: Response: No adverse reaction as6 Medication: 19:45 VIS not applicable for this client. as6 Intake: 18:35 IV: 2500ml; Total: 2500ml. kc6 19:47 IV: 250ml; Total: 2750ml. as6 Outcome: 18:16 Decision to Hospitalize by Provider. sp3 19:46 Admitted to Tele accompanied by tech, via stretcher, room 404, with chart, as6 19:46 Condition: stable 19:46 Instructed on the need for admit, 19:48 Patient left the ED. as6 Signatures: Rosa Harrison MD MD sp3 Adrian López RN RN as6 Britta Holcomb RN RN kc6
[2024-01-28] MEDS ORDERED: ACETAMINOPHEN 325 MG TABLET PO PRN (18:17)
[2024-01-28] MEDS ORDERED: ONDANSETRON 4 MG/2 ML VIAL IV PRN (18:17)
[2024-01-28] MEDS ORDERED: MORPHINE 4 MG/ML SYR ONE (18:23)
--- NOTE | 2024-01-28 18:44 | RAD REPORT ---
EXAM DESCRIPTION: RAD - Chest Single View - 01/28/2024 6:33 pm CLINICAL HISTORY: lactic acidosis Chest pain. COMPARISON: Chest Single View dated 01/28/2023; Chest Single View dated 01/16/2023; Chest Single View d ated 12/02/2022; Chest Single View dated 10/22/2022 FINDINGS: Portable technique limits examination quality. The lungs are grossly clear. The heart is normal in size. No displaced fractures. IMPRESSION: No acute intrathoracic process suspected.
--- NOTE | 2024-01-28 19:38 | P.HP ---
Certification for Inpatient Patient admitted to: Observation With expected LOS: <2 Midnights Practitioner: I am a practitioner with admitting privileges, knowledge of patient current condition, hospital course, and medical plan of care. Services: Services provided to patient in accordance with Admission requirements found in Title 42 Section 412.3 of the Code of Federal Regulations Patient History Date of Service: 01/28/24 Reason for admission: intractable back Pain History of Present Illness: 73 yrs old Male with past medical history of chronic back pain, chronic hip pain, atrial fibrillation, neuropathy, lymphedema, chronic pain syndrome, anxiety, depression who came to ER with worsening of right hip pain. Patient denies any trauma. No fever or chills. No nausea vomiting or diarrhea. No sick contacts Patient was seen and examined in the ER and was found to have dehydration, lactic acidosis and hyponatremia and had intractable back pain and was admitted for further management Allergies meperidine HCl [From Demerol] Allergy (Severe, Verified 11/17/18 00:49) Anaphylaxis metformin Allergy (Intermediate, Verified 11/17/18 00:49) Anaphylaxis morphine Allergy (Verified 04/28/22 20:14) Rash Clindamycin Allergy (Uncoded 11/17/18 00:49) Unknown Home medications list reviewed: Yes Home Medications: Tizanidine HCl [Zanaflex] 4 mg PO BID PRN 03/11/21 Venlafaxine HCl *Xr* [Effexor XR*] 75 mg PO BEDTIME 01/17/23 Levetiracetam [Keppra Xr] 500 mg PO BID #60 tab 01/29/23 Acetaminophen with Codeine [Acetaminophen-Cod #4 Tablet] 1 tab PO QID PRN 01/28/24 clonazePAM [Clonazepam] 0.5 mg PO QID 01/28/24 - Past Medical/Surgical History Diabetic: No Past Medical History: Reviewed- Non-Contributory -: IDDM -: ANXIETY -: Atrial FIB -: Osteoarthritis -: Pancreatitis -: Lymphedema -: Chronic pain -: neuropathy -: HTN -: chronic pain to right: hip,leg,ankle -: chronic back pain -: tachycardia Past Surgical History: Reviewed- Non-Contributory -: 3 foot surgeries -: PATRICIA knee surgery -: R shoulder surgery -: 3 back surgeries -: CHOLECYSTECTOMY -: pancreatic sx Psychosocial/ Personal History: Lives at home with his - Family History Family History: Reviewed- Non-Contributory - Family History Father -: Other (see notes) Notes: dementia Mother -: Hypertension, Other (see notes) Notes: Gallstones - Social History Smoking Status: Never smoker Alcohol use: No CD- Drugs: No Caffeine use: No Review of Systems 10-point ROS is otherwise unremarkable Physical Examination - Vital Signs Temperature: 98.4 F Blood Pressure: 126/78 Pulse: 78 Respirations: 18 Pulse Ox (%): 96 - Physical Exam General: Alert, In no apparent distress, Oriented x3, Cooperative HEENT: Atraumatic, Normocephalic Neck: Supple, No Thyromegaly, No LAD Respiratory: Clear to auscultation bilaterally, Normal air movement Cardiovascular: Regular rate/rhythm, Normal S1 S2 Capillary refill: <2 Seconds Gastrointestinal: Soft and benign, W/out hepatosplenomegaly, No tenderness Musculoskeletal: No clubbing, No swelling, Tenderness Integumentary: No rashes, No breakdown Neurological: Normal speech, Normal strength at 5/5 x4 extr, Cranial nerves 3-12 intact, Normal reflexes 2+ Lymphatics: No axilla or inguinal lymphadenopathy - Studies Laboratory Data (last 24 hrs) 01/28/24 01/28/24 01/28/24 16:35 16:05 16:05 WBC 8.90 Hgb 12.2 L Hct 37.3 L Plt Count 434 H PT 12.2 INR 1.11 Sodium 129 L Potassium 4.1 BUN 12 Creatinine 0.89 Glucose 143 H Total Bilirubin 0.4 AST 8 L ALT 20 Alkaline Phosphatase 266 H Assessment and Plan - Problems (Diagnosis) (1) Intractable back pain Current Visit: Yes Status: Acute Plan: Intractable back pain Intractable hip pain Pain control Continue home medications and titrate as needed Antispasmodic medications Lactic acidosis ? cause Will obtain cultures Started on Rocephin empirically Hyponatremia Started on IV hydration Monitor closely on telemetry Electrolytes monitor and replace accordingly Diabetes Insulin sliding scale Will get an A1c in a.m. Anxiety Continue home medications GI/DVT prophylaxis Advance directive full code - Advance Directives Does patient have a Living Will: No Does patient have a Durable POA for Healthcare: No - Code Status/Comfort Care Code Status: Full Code Time Spent Managing Pts Care (In Minutes): 48
[2024-01-28] MEDS ORDERED: hydrOXYzine HCL 25 MG TAB PO PRN (20:45)
[2024-01-28] MEDS ORDERED: DOCUSATE NA 100 MG CAP PO PRN (20:45)
[2024-01-28] MEDS: ENOXAPARIN 40 MG/0.4 ML SQ SCH (20:53)
[2024-01-28] MEDS: NA CHLORIDE 0.9% 1,000 ML IV SCH (20:53)
[2024-01-28] MEDS: CEFTRIAXONE 1,000 MG in NA CHLORIDE 0.9% 50 ML IVPB SCH (20:53)
[2024-01-28] MEDS: HOME MED 1 EA UNK (Levetiracetam [Keppra Xr] 500 MG Tab.Er.24h) PO SCH (21:00)
[2024-01-28] MEDS: HOME MED 1 EA UNK (Trazodone Hcl [Trazodone Hcl] 100 MG Tablet) PO SCH (21:00)
[2024-01-28] MEDS ORDERED: D50W 25 GM/50 ML SYRINGE IV PRN (21:10)
[2024-01-28] MEDS ORDERED: GLUCAGON 1 MG/VIAL IM PRN (21:10)
[2024-01-28] MEDS ORDERED: D10W 125 ML IV PRN (21:14)
[2024-01-28] MEDS: HYDROCODONE/APAP 5/325 MG TAB PO PRN (21:32)
[2024-01-28] MEDS: clonazePAM 0.5 MG TAB PO PRN (21:32)
[2024-01-28] MEDS: TIZANIDINE 4 MG TABLET PO SCH (21:32)
[2024-01-29] MEDS: HYDROMORPHONE HCL 1 MG/ML INJ IV ONE (04:35)
[2024-01-29 04:48] LABS: Absolute Eosinophils 0.3 K/uL (0-0.5); Absolute Lymphocytes (CBC) 2.4 K/uL (0.7-4.9); Absolute Monocytes 0.5 K/uL (0.1-1.3); Absolute Neutrophil 4.7 K/uL (1.8-8.0); Basophils % 0.4 % (0-1.3); Eosinophils % 3.9 % (0-4.4); Hematocrit 35.4 % (39.6-49.0); Hemoglobin 11.7 g/dL (13.6-17.9); MCH 29.9 pg (27.0-35.0); MCV 90.5 fL (80-100); MPV 6.3 fL (7.6-11.3); Monocytes % 6.5 % (3.3-12.3); Neutrophils % 59.2 % (41.7-73.7); Platelets 366 thou/uL (152-406); RBC Red Blood Cell Count 3.92 M/uL (4.33-5.43); Red Cell Distribution Width 15.5 % (12.1-15.2)
[2024-01-29 05:00] LABS: Albumin 2.8 g/dL (3.4-5.0); Albumin/Globulin Ratio 0.8 (1.1-1.8); Anion Gap 8.1 mEq/L (5.0-15.0); Bilirubin Total 0.4 mg/dL (0.2-1.0); Globulin 3.6 g/dL (2.3-3.5); Potassium 4.1 mEq/L (3.5-5.1); Protein, Total 6.4 g/dL (6.4-8.2)
[2024-01-29] MEDS: INSULIN REGULAR (HUMAN) 100 UNIT/ML SQ SCH (07:30)
[2024-01-29] MEDS: AMLODIPINE 10 MG TAB PO SCH (10:03)
[2024-01-29] MEDS: clonazePAM 0.5 MG TAB PO SCH (10:03)
[2024-01-29 11:55] VITALS: O2SAT 98
--- NOTE | 2024-01-29 16:08 | P.PN ---
Subjective Date of Service: 01/29/24 Chief Complaint: intractable back Pain Patient reports that he is anxious. No other complain. No recorded fever. Lactic acidosis resolved. Physical Examination - Vital Signs Temperature: 98.4 F Blood Pressure: 101/58 Pulse: 98 Respirations: 17 Pulse Ox (%): 98 - Studies Laboratory Data (last 24 hrs) 01/28/24 01/28/24 01/28/24 16:35 16:05 16:05 WBC 8.90 Hgb 12.2 L Hct 37.3 L Plt Count 434 H PT 12.2 INR 1.11 Sodium 129 L Potassium 4.1 BUN 12 Creatinine 0.89 Glucose 143 H Total Bilirubin 0.4 AST 8 L ALT 20 Alkaline Phosphatase 266 H Assessment And Plan - Plan Physical Exam General: Alert, In no apparent distress, Oriented x3, Cooperative HEENT: Atraumatic, Normocephalic Neck: Supple, no elevated JVD. Respiratory: Clear to auscultation bilaterally, Normal air movement Cardiovascular: Regular rate/rhythm, Normal S1 S2 Gastrointestinal: Soft and benign, W/out hepatosplenomegaly, No tenderness Musculoskeletal: No clubbing, No swelling, Tenderness Integumentary: Bilateral lower extremity venous stasis ulcers. Neurological: Normal speech, Normal strength at 5/5 x4 extr, Cranial nerves 3-12 intact, Normal reflexes 2+ Assessment and Plan Intractable back pain Chronic Pain control Continue home medications and titrate as needed Antispasmodic medications Lactic acidosis Probably secondary to dehydration IV Rocephin empirically Follow cultures Hyponatremia Continue IV normal saline Electrolytes monitor and replace accordingly Diabetes mellitus type 2 Insulin sliding scale Anxiety Continue home medications DVT prophylaxis: Lovenox Advance directive: full code
[2024-01-29] MEDS: JUVEN PACKET PO SCH (21:00)
[2024-01-29] MEDS: VENLAFAXINE HCL XR 75 MG CAP PO SCH (21:53)
[2024-01-29] MEDS: HYDROMORPHONE HCL 0.5 MG/0.5 ML INJ IV ONE (21:54)
[2024-01-30 00:19] VITALS: BMI 26.9
[2024-01-30 12:15] VITALS: BP 93/52; TEMP 97
[2024-01-30 13:21] LABS: Specific Gravity 1.009 (1.005-1.030); Sqamous Epithelial None Seen /HPF (None Seen); Urine Bacteria None Seen /HPF (<20); Urine Bilirubin NEGATIVE (Negative); Urine Blood Negative (Negative); Urine Clarity Clear (Clear); Urine Color Colorless (Yellow); Urine Culture Reflex Order NOT NEEDED; Urine Glucose NEGATIVE (Negative); Urine Ketones TRACE (Negative); Urine Microscopic Reflex YN ORDER UMIC; Urine Mucus Slight /HPF (None Seen); Urine Nitrite NEGATIVE (Negative); Urine Protein NEGATIVE (Negative); Urine RBC <5 /HPF (None Seen); Urine Urobilinogen Normal (Normal); Urine WBC <5 /HPF (<5)
== END 2024-01-30 14:00 | disposition home health service (06) ==
LOC: ER 15:36 → ERHOLD 18:17 → 4TH 19:25
PROVIDERS: ADMIT Family Medicine; ATTEND Internal Medicine
DX: M54.9 Dorsalgia, unspecified (principal); G89.4 Chronic pain syndrome; M25.559 Pain in unspecified hip; I48.91 Unspecified atrial fibrillation; G62.9 Polyneuropathy, unspecified; I89.0 Lymphedema, not elsewhere classified; F41.9 Anxiety disorder, unspecified; F32.A Depression, unspecified; E87.1 Hypo-osmolality and hyponatremia; E86.0 Dehydration; E87.20 Acidosis, unspecified; E11.9 Type 2 diabetes mellitus without complications; R21 Rash and other nonspecific skin eruption; Z88.5 Allergy status to narcotic agent
CPT/HCPCS: 96365; 93005; 87040 ×2; 87070; 85025 ×2; 81001; 36415; 87205; 85610; 82947 ×6; 83605 ×2; 87077; 87186; 80053 ×2; 71045; 96375; 99285; 96366; J1650 ×3; J1170 ×2; J2405; J7050; J7040; J7030 ×5; J0696 ×3; G0378

== ENCOUNTER 2024-02-18 07:45 | Observation (INO) | payer OTHER ==
[2024-02-18] MEDS ORDERED: NA CHLORIDE 0.9% 1,000 ML ONE (07:56)
[2024-02-18] MEDS ORDERED: KETOROLAC 30 MG/ML INJ ONE (07:56)
[2024-02-18 08:27] LABS: Absolute Basophils 0.1 K/uL (0-0.5); Absolute Eosinophils 0.2 K/uL (0-0.5); Absolute Lymphocytes (CBC) 1.6 K/uL (0.7-4.9); Absolute Monocytes 0.8 K/uL (0.1-1.3); Absolute Neutrophil 7.1 K/uL (1.8-8.0); Basophils % 0.6 % (0-1.3); Eosinophils % 2.2 % (0-4.4); Hematocrit 40.1 % (39.6-49.0); Hemoglobin 13.2 g/dL (13.6-17.9); Lymphocytes % 16.7 % (15.3-44.8); MCH 29.3 pg (27.0-35.0); MCHC 32.8 g/dL (32.0-36.0); MCV 89.4 fL (80-100); MPV 6.4 fL (7.6-11.3); Monocytes % 8.5 % (3.3-12.3); Platelets 388 thou/uL (152-406); RBC Red Blood Cell Count 4.49 M/uL (4.33-5.43); Red Cell Distribution Width 14.9 % (12.1-15.2)
[2024-02-18 08:40] LABS: Albumin 3.2 g/dL (3.4-5.0); Albumin/Globulin Ratio 0.8 (1.1-1.8); Anion Gap 9.3 mEq/L (5.0-15.0); Bilirubin Total 0.8 mg/dL (0.2-1.0); Globulin 3.9 g/dL (2.3-3.5); Potassium 3.3 mEq/L (3.5-5.1); Protein, Total 7.1 g/dL (6.4-8.2)
--- NOTE | 2024-02-18 09:06 | RAD REPORT ---
EXAM DESCRIPTION: CTAbdomen Pelvis W Contrast - 02/18/2024 8:51 am CLINICAL HISTORY: ABD PAIN COMPARISON: Abdomen Pelvis W Contrast dated 10/20/2022; Abdomen Pelvis W Contrast dated 04/09/2021; Abdomen Pelvis W Contrast dated 03/14/2021; Abdomen Pelvis W Contrast dated 01/30/2021 TECHNIQUE: CT of the abdomen and pelvis was performed with IV contrast. All CT scans are performed using dose optimization technique as appropriate and may include automated exposure control or mA/KV adjustment according to patient size. FINDINGS: Lower chest: Coronary artery calcifications. Liver: Intrahepatic biliary duct dilatation. No focal liver mass identified. Biliary: Cholecystectomy. Chronic intra extrahepatic biliary duct dilatation. The common bile duct me asures 16 millimeters. Stomach: No significant focal abnormality. Duodenum: No significant focal abnormality. Pancreas: Absent body and tail the pancreas. Spleen: No significant abnormality. Adrenal: No suspicious lesions. Kidney/ureter: No hydronephrosis. No renal calculi. Too small to characterize and/or benign appearing renal lesions are noted. Left renal lesion with layering hyperdensity consistent with a hemorrhagic cyst. No suspicious renal lesions. Retroperitoneum: No retroperitoneal adenopathy. Vascular: No aneurysm. Bowel: Moderate stool in the rectum with rectal wall thickening and stranding. Moderate stool present throughout the colon.. Peritoneum: No ascites or free air. Bladder: Bladder wall thickening and hyperenhancement. Reproductive: No adnexal masses. Bones: No acute fracture. Multilevel degenerative changes are present in the spine. Other: Right-sided pain pump. IMPRESSION: 1. Moderate formed stool in the rectum with perirectal edema concerning for fecal impact ion and possible stercoral colitis. 2. Bladder wall thickening and hyperenhancement. Correlate with urinalysis to exclude cystitis. 3. Other chronic findings including severe intra and extrahepatic biliary duct dilatation. This could be further evaluated with either MRCP or ERCP as clinically indicated.
[2024-02-18 09:22] LABS: Specific Gravity 1.018 (1.005-1.030); Sqamous Epithelial <5 /HPF (None Seen); Urine Bacteria None Seen /HPF (<20); Urine Bilirubin NEGATIVE (Negative); Urine Blood Negative (Negative); Urine Clarity Clear (Clear); Urine Color Yellow (Yellow); Urine Culture Reflex Order NOT NEEDED; Urine Glucose NEGATIVE (Negative); Urine Ketones NEGATIVE (Negative); Urine Microscopic Reflex YN ORDER UMIC; Urine Mucus Slight /HPF (None Seen); Urine Nitrite NEGATIVE (Negative); Urine Protein TRACE (Negative); Urine RBC <5 /HPF (None Seen); Urine Urobilinogen 1+ (Normal); Urine WBC <5 /HPF (<5)
[2024-02-18 09:42] LABS: C.diff Antigen/Toxin Ag neg : Tox neg (NEG : NEG); CDIFF INTERNAL NEG CONTROL White Background (WHITE BKGD); STOOL CONSISTENCY Liquid/Semi-Solid
[2024-02-18] MEDS ORDERED: LACTULOSE 20 GM/30 ML UCUP ONE (10:23)
--- NOTE | 2024-02-18 11:38 | EDPHYS ---
Physician Documentation [facility] Name: Kiel Ngo Age: 73 yrs Sex: Male : 1950 Arrival Date: 02/18/2024 Time: 07:45 Bed 24 Private MD: ED Physician Scotty Guzman HPI: 02/17 07:52 This 73 yrs old Male presents to ER via EMS with complaints of Abdominal Pain. ms3 07:52 73-year-old male with past medical history of atrial fibrillation, lymphedema, ms3 neuropathy, chronic back pain, chronic leg pain presents to the emergency department for abdominal pain and diarrhea that began yesterday. He states his pain is a 10/10 and located generally throughout his abdomen. Patient denies any alleviating or inciting factors. He denies nausea, vomiting, fevers, chills.. Historical: - Allergies: 07:46 Demerol; ll1 07:46 metformin; ll1 - PMHx: 07:46 Atrial fibrillation; lymphedema; neuropathy; chronic back pain; Chronic right leg pain; ll1 - PSHx: 07:46 back sx; PANCREAS SX; R. Ankle SX; ll1 - Immunization history:: Adult Immunizations unknown. - Infectious Disease History:: Denies. - Social history:: Smoking status: Patient denies any tobacco usage or history of. ROS: 07:52 Constitutional: Negative for fever, and chills. Neck: Negative for injury, pain, and ms3 swelling, Cardiovascular: Negative for chest pain, and palpitations. Respiratory: Negative for shortness of breath, cough, wheezing, and pleuritic chest pain, 07:52 MS/Extremity: Negative for injury and deformity, Skin: Negative for injury, rash, and discoloration, 07:52 Abdomen/GI: Positive for abdominal pain, diarrhea, Negative for nausea and vomiting, Exam: 07:52 Constitutional: This is a well developed, well nourished patient who is awake, alert, ms3 and in no acute distress. Head/Face: Normocephalic, atraumatic. Chest/axilla: Normal chest wall appearance and motion. Nontender with no deformity. Cardiovascular: Regular rate and rhythm with a normal S1 and S2. No gallops, murmurs, or rubs. Normal PMI, no JVD. No pulse deficits. Respiratory: Lungs have equal breath sounds bilaterally, clear to auscultation and percussion. No rales, rhonchi or wheezes noted. No increased work of breathing, no retractions or nasal flaring. Abdomen/GI: Soft, non-tender, with normal bowel sounds. No distension or tympany. No guarding or rebound. No evidence of tenderness throughout. Skin: Warm, dry with normal turgor. Normal color with no rashes, no lesions, and no evidence of cellulitis. MS/ Extremity: Pulses equal, no cyanosis. Neurovascular intact. Full, normal range of motion. Vital Signs: 07:42 BP 155 / 95; Pulse 128; Resp 28; Temp 97.9(TE); Pulse Ox 95% ; Weight 85.73 kg; Height db 5 ft. 11 in. ; Pain 10/10; 08:30 BP 155 / 107; Pulse 125; Resp 18; Pulse Ox 100% on R/A; db 09:27 BP 176 / 110; Pulse 115; Resp 18; Pulse Ox 100% on R/A; db 10:00 BP 144 / 81; Pulse 118; Resp 20; Pulse Ox 100% ; db 11:00 BP 153 / 82; Pulse 109; Resp 20; Pulse Ox 100% ; db 07:42 Body Mass Index 26.36 (85.73 kg, 180.34 cm) db 07:42 Pain Scale: Adult db MDM: 07:48 Patient medically screened. ms3 07:52 Differential diagnosis: diverticulitis, non-specific abd pain, pancreatitis, urinary ms3 tract infection. 16:48 Data reviewed: vital signs, nurses notes, lab test result(s), radiologic studies, and ms3 as a result, I will admit patient. Consideration of Admission/Observation Patient was admitted/placed on observation. Management of patient was discussed with the following: Hospitalist: Dr Taylor. I considered the following discharge prescriptions or medication management in the emergency department Medications were administered in the Emergency Department. See MAR. Historians other than the Patient: EMS: [facility]. Counseling: I had a detailed discussion with the patient and/or guardian regarding the historical points, exam findings, and any diagnostic results supporting the discharge/admit diagnosis, lab results, radiology results, the need for further work-up and treatment in the hospital. ED course: . 02/17 07:50 Order name: CBC with Diff; Complete Time: 09:08 ms3 02/17 07:50 Order name: CMP; Complete Time: 09:08 ms3 02/17 07:50 Order name: Lipase; Complete Time: 09:08 ms3 02/17 07:50 Order name: Urinalysis w/ reflexes; Complete Time: 09:56 ms3 02/17 09:33 Order name: C.difficile GDH Ag ; Complete Time: 09:56 EDMS 02/17 11:58 Order name: CBC with Automated Diff EDMS 02/17 11:58 Order name: CBC with Automated Diff EDMS 02/17 11:58 Order name: Comprehensive Metabolic Panel EDMS 02/17 11:58 Order name: Comprehensive Metabolic Panel EDMS 02/17 11:58 Order name: Lipid Profile EDMS 02/17 11:58 Order name: Lipid Profile EDMS 02/17 11:58 Order name: Liver (Hepatic) Function EDMS 02/17 11:58 Order name: Liver (Hepatic) Function EDMS 02/17 07:50 Order name: CT Abd/Pelvis - IV Contrast Only; Complete Time: 09:08 ms3 02/17 11:58 Order name: CONS Physician Consult EDMS 02/17 07:50 Order name: IV Saline Lock; Complete Time: 08:15 ms3 02/17 07:50 Order name: Labs collected and sent; Complete Time: 08:15 ms3 Administered Medications: 08:10 Drug: NS 0.9% IV 1000 ml IV at 1 bolus Per protocol; 1000 mL bolus Route: IV; Rate: 1 db bolus; Site: right forearm; 11:45 Follow up: Response: No adverse reaction; IV Status: Completed infusion; IV Intake: ll1 1000ml 08:10 Drug: TORadol - Ketorolac IVP 10 mg IVP once Route: IVP; Site: right forearm; db 11:45 Follow up: Response: No adverse reaction ll1 09:55 Drug: soap suds enema 1 application MO once Route: MO; db 11:45 Follow up: Response: No adverse reaction ll1 10:30 Drug: lactulose enema 1 ea MO once Route: MO; db 11:45 Follow up: Response: No adverse reaction ll1 11:49 Drug: Dicyclomine PO 20 mg PO once Route: PO; ll1 Disposition Summary: 02/18/24 11:38 Hospitalization Ordered Notes: Hospitalization Status: Observation ms3 Provider: Leslie Taylor ms3 Location: Telemetry/MedSurg (observation) ms3 Condition: Stable ms3 Problem: new ms3 Symptoms: are unchanged ms3 Bed/Room Type: Standard ms3 Room Assignment: 204(02/18/24 12:11) bd Diagnosis - Stercoral colitis ms3 - Abdominal pain, Generalized ms3 Forms: - Medication Reconciliation Form ms3 - SBAR form ms3 - Leadership Thank You Letter ms3 Signatures: Dispatcher [employer] EDMS Karin Solorzano bd Tristian Mccormack RN RN ll1 Scotty Guzman DO DO ms3 Graciela Gentile RN RN db Corrections: (The following items were deleted from the chart) 07:51 07:51 CBC+H.LAB.BRZ ordered. EDMS EDMS 07:51 07:51 COMPREHENSIVE METABOLIC PANEL+C.LAB.BRZ ordered. EDMS EDMS 07:51 07:51 LIPASE+C.LAB.BRZ ordered. EDMS EDMS 07:51 07:51 Urinalysis+U.LAB.BRZ ordered. EDMS EDMS 07:51 07:51 Abdomen Pelvis W Con+CT.RAD.BRZ ordered. EDMS EDMS 09:33 08:29 C.difficile Real-time PCR+MOL.LAB.BRZ ordered. EDMS EDMS 12:11 11:38 ms3 bd
--- NOTE | 2024-02-18 11:38 | ER ---
Nurse's Notes [facility] Name: Kiel Ngo Age: 73 yrs Sex: Male : 1950 Arrival Date: 02/18/2024 Time: 07:45 Bed 24 Private MD: Diagnosis: Stercoral colitis;Abdominal pain, Generalized Presentation: 02/17 07:42 Chief complaint: EMS states: ABD PAIN STARTED YESTERDAY FROM HOME DENIES N/V. HX NON db AMBULATORY. Coronavirus screen: Vaccine status: Patient reports receiving the 2nd dose of the covid vaccine. Client denies travel out of the [place] in the last 14 days. At this time, the client does not indicate any symptoms associated with coronavirus-19. Ebola Screen: Patient negative for fever greater than or equal to 101.5 degrees Fahrenheit, and additional compatible Ebola Virus Disease symptoms Patient denies exposure to infectious person. Patient denies travel to an Ebola-affected area in the 21 days before illness onset. No symptoms or risks identified at this time. Initial Sepsis Screen: Does the patient meet any 2 criteria? HR > 90 bpm. No. Patient's initial sepsis screen is negative. Does the patient have a suspected source of infection? No. Patient's initial sepsis screen is negative. Risk Assessment: Do you want to hurt yourself or someone else? Patient reports no desire to harm self or others. Onset of symptoms was February 18, 2024. Care prior to arrival: IV initiated. 20 GA, in the right forearm, Glucose check: 152. 07:42 Method Of Arrival: EMS: [facility] db 07:42 Acuity: JOZEF 3 db Triage Assessment: 07:42 General: Appears in no apparent distress. comfortable, Behavior is calm, cooperative. db Pain: Complains of pain in abdomen. Neuro: Level of Consciousness is awake, alert, obeys commands, Oriented to person, place, time, situation. GI: Abdomen is flat, non-distended, Reports lower abdominal pain, upper abdominal pain, Patient currently denies nausea, vomiting. Historical: - Allergies: 07:46 Demerol; ll1 07:46 metformin; ll1 - PMHx: 07:46 Atrial fibrillation; lymphedema; neuropathy; chronic back pain; Chronic right leg pain; ll1 - PSHx: 07:46 back sx; PANCREAS SX; R. Ankle SX; ll1 - Immunization history:: Adult Immunizations unknown. - Infectious Disease History:: Denies. - Social history:: Smoking status: Patient denies any tobacco usage or history of. Screenin:52 [facility] ED Fall Risk Assessment (Adult) History of falling in the last 3 months, db including since admission No falls in past 3 months (0 pts) Confusion or Disorientation No (0 pts) Intoxicated or Sedated No (0 pts) Impaired Gait Yes (1 pt) Mobility Assist Device Used No (0 pt) Altered Elimination Yes (1 pt) Score/Fall Risk Level 0 - 2 = Low Risk Oriented to surroundings, Maintained a safe environment. Abuse screen: Denies threats or abuse. Denies injuries from another. Nutritional screening: No deficits noted. Tuberculosis screening: No symptoms or risk factors identified. Assessment: 07:51 Reassessment: SEE TRIAGE FOR INITIAL ASSESSMENT. db 08:10 Reassessment: Patient appears in no apparent distress at this time. Patient and/or db family updated on plan of care and expected duration. Pain level reassessed. Patient is alert, oriented x 3, equal unlabored respirations, skin warm/dry/pink. General: Appears in no apparent distress. comfortable, Behavior is calm, cooperative. Pain: Complains of pain in abdomen. Neuro: Level of Consciousness is awake, alert, obeys commands, Oriented to person, place, time, situation. 08:15 Reassessment: NOTIFIED DR. BYNUM PT REQUESTS DILAUDID FOR PAIN. db 08:40 Reassessment: Patient appears in no apparent distress at this time. Patient and/or db family updated on plan of care and expected duration. Pain level reassessed. NOTED PATIENT WITH DIARRHEA. CHANGED PT NOTIFIED DR. BYNUM. STOOL SAMPLE COLLECTED. PT NOTED TO HAVE DIME SIZED WOUND TO SACRAL AREA. SOCKS PLACED ON PT AND PT CHANGED INTO A GOWN. Respiratory: Airway is patent Respiratory effort is even, unlabored, Respiratory pattern is regular, symmetrical. GI: Stools are reported to be loose, diarrhea. Last BM was February 18, 2024. 10:17 Reassessment: Patient appears in no apparent distress at this time. Patient and/or db family updated on plan of care and expected duration. Pain level reassessed. Patient is alert, oriented x 3, equal unlabored respirations, skin warm/dry/pink. PT GIVEN SOAP SUDS ENEMA. DID NOT HAVE A BOWEL MOVEMENT. NOTIFIED PROVIDER. PROVIDER ATTEMPTED DISIMPACTION. NEW ORDER FOR LACTULOSE ENEMA RECEIVED. 11:04 Reassessment: LACTULOSE ENEMA UNSUCCESSFUL. NOTED SMALL AMOUNT OF STOOL WITH LIQUID. db 11:21 Reassessment: asking for more pain medication, Dr. Bynum informed. ll1 11:49 Reassessment: No changes from previously documented assessment. Patient and/or family ll1 updated on plan of care and expected duration. Pain level reassessed. Vital Signs: 07:42 BP 155 / 95; Pulse 128; Resp 28; Temp 97.9(TE); Pulse Ox 95% ; Weight 85.73 kg; Height db 5 ft. 11 in. ; Pain 10/10; 08:30 BP 155 / 107; Pulse 125; Resp 18; Pulse Ox 100% on R/A; db 09:27 BP 176 / 110; Pulse 115; Resp 18; Pulse Ox 100% on R/A; db 10:00 BP 144 / 81; Pulse 118; Resp 20; Pulse Ox 100% ; db 11:00 BP 153 / 82; Pulse 109; Resp 20; Pulse Ox 100% ; db 07:42 Body Mass Index 26.36 (85.73 kg, 180.34 cm) db 07:42 Pain Scale: Adult db ED Course: 07:43 Arm band placed on Patient placed in an exam room, on a stretcher. ll1 07:46 Patient arrived in ED. ll1 07:48 Scotty Bynum DO is Attending Physician. ms3 07:50 Triage completed. db 07:51 Patient has correct armband on for positive identification. Bed in low position. Call db light in reach. Side rails up X2. Client placed on continuous cardiac and pulse oximetry monitoring. NIBP monitoring applied. Warm blanket given. 07:54 Maintain EMS IV. Dressing intact. Good blood return noted. Site clean \T\ dry. Gauge \T\ db site: 20 G RFA. 08:10 Initial lab(s) drawn, by me, sent to lab. db 08:15 Graciela Gentile, RN is Primary Nurse. db 08:40 Straight cath inserted, using sterile technique, 14 Fr. Specimen obtained. db 08:[address] via stretcher. db 08:53 CT Abd/Pelvis - IV Contrast Only In Process Unspecified. EDMS 08:54 Urine collected: straight cath specimen, cloudy, Amount Returned: 60mL. db 09:02 Patient moved back from CT. db 09:12 Warm blanket given. ll1 11:38 Leslie Taylor MD is Hospitalizing Provider. ms3 Administered Medications: 08:10 Drug: NS 0.9% IV 1000 ml IV at 1 bolus Per protocol; 1000 mL bolus Route: IV; Rate: 1 db bolus; Site: right forearm; 11:45 Follow up: Response: No adverse reaction; IV Status: Completed infusion; IV Intake: ll1 1000ml 08:10 Drug: TORadol - Ketorolac IVP 10 mg IVP once Route: IVP; Site: right forearm; db 11:45 Follow up: Response: No adverse reaction ll1 09:55 Drug: soap suds enema 1 application MA once Route: MA; db 11:45 Follow up: Response: No adverse reaction ll1 10:30 Drug: lactulose enema 1 ea MA once Route: MA; db 11:45 Follow up: Response: No adverse reaction ll1 11:49 Drug: Dicyclomine PO 20 mg PO once Route: PO; ll1 Medication: 07:51 VIS not applicable for this client. db Intake: 11:45 IV: 1000ml; Total: 1000ml. ll1 Outcome: 11:38 Decision to Hospitalize by Provider. ms3 12:56 Patient left the ED. bd Signatures: Dispatcher [employer] EDMS Karin Solorzano bd Tristian Mccormack, RN RN ll1 Scotty Bynum DO DO ms3 Graciela Gentile RN RN db
[2024-02-18] MEDS ORDERED: DICYCLOMINE HCL 10 MG CAP ONE (11:43)
[2024-02-18] MEDS ORDERED: LACTULOSE 20 GM/30 ML UCUP PO PRN (12:01)
--- NOTE | 2024-02-18 12:09 | P.HP ---
Certification for Inpatient Patient admitted to: Observation With expected LOS: <2 Midnights Patient will require the following post-hospital care: None Practitioner: I am a practitioner with admitting privileges, knowledge of patient current condition, hospital course, and medical plan of care. Services: Services provided to patient in accordance with Admission requirements found in Title 42 Section 412.3 of the Code of Federal Regulations <Sera Cardona - Last Filed: 02/18/24 12:27> Patient History Date of Service: 02/18/24 Reason for admission: Constipation History of Present Illness: Mr. Ngo is a 73-year-old gentleman who is well-known to the ED. he has a history of hypertension, chronic pain, constipation. Medical records indicate that he also has a history of insulin-dependent diabetes and atrial fibrillation; however, his pharmacy med list has no medications for these conditions. He states he is no longer diabetic. He states he does have a history of atrial fibrillation and he used to take Ativan for it. I questioned him about blood thinners and he states he does not take any because "they did not work". Will obtain 12 lead EKG. Mr. Ngo lives at home with his . He states he has a hospital bed and if he can get out of it he does pretty well with a walker or wheelchair. Laboratory evaluation in the emergency department is unremarkable. CT evaluation of the abdomen reveals "impression moderate formed stool in the rectum with perirectal edema concerning for fecal impaction and possible stercoral colitis. Bladder wall thickening and hyperenhancement. Correlate with urinalysis to exclude cystitis. Other chronic findings including severe intra and extrahepatic biliary duct dilatation. This could be further evaluated with either MRCP or ERCP as clinically indicated." He will be admitted to the hospital for observation for administration of lactulose, consultation with Dr. Estrada, and on contact isolation as there was concern for bedbugs. - Past Medical/Surgical History Has patient received pneumonia vaccine in the past: Yes Diabetic: No -: IDDM -: ANXIETY -: Atrial FIB -: Osteoarthritis -: Pancreatitis -: Lymphedema -: Chronic pain -: neuropathy -: HTN -: chronic pain to right: hip,leg,ankle -: chronic back pain -: tachycardia -: 3 foot surgeries -: PATRICIA knee surgery -: R shoulder surgery -: 3 back surgeries -: CHOLECYSTECTOMY -: pancreatic sx Psychosocial/ Personal History: Lives at home with his . Has hospital bed, walker, wheelchair - Family History Father -: Other (see notes) Notes: dementia Mother -: Hypertension, Other (see notes) Notes: Gallstones - Social History Alcohol use: No CD- Drugs: No Caffeine use: No Place of Residence: Home <Sera Cardona - Last Filed: 02/18/24 12:27> Date of Service: 02/18/24 <Leslie Taylor - Last Filed: 02/18/24 15:19> Allergies meperidine HCl [From Demerol] Allergy (Severe, Verified 11/17/18 00:49) Anaphylaxis metformin Allergy (Intermediate, Verified 11/17/18 00:49) Anaphylaxis morphine Allergy (Verified 04/28/22 20:14) Rash Clindamycin Allergy (Uncoded 11/17/18 00:49) Unknown Home Medications: Tizanidine HCl [Zanaflex] 4 mg PO BID PRN 03/11/21 Venlafaxine HCl *Xr* [Effexor XR*] 75 mg PO BEDTIME 01/17/23 Acetaminophen with Codeine [Acetaminophen-Cod #4 Tablet] 1 tab PO QID PRN 01/28/24 clonazePAM [Clonazepam] 0.5 mg PO QID 01/28/24 Amlodipine [Norvasc*] 10 mg PO DAILY 01/29/24 Review of Systems 10-point ROS is otherwise unremarkable General: As per HPI Gastrointestinal: Abdominal Pain, Constipation <Sera Cardona - Last Filed: 02/18/24 12:27> Physical Examination - Physical Exam General: Alert, In no apparent distress, Oriented x3 HEENT: Atraumatic, Normocephalic Neck: Supple Respiratory: Normal air movement Cardiovascular: No edema, Regular rate/rhythm (tachycardia at 108) Capillary refill: <2 Seconds Gastrointestinal: Soft and benign Musculoskeletal: No clubbing Integumentary: No rashes, Other Neurological: Normal speech, Normal tone Lymphatics: No axilla or inguinal lymphadenopathy External genitalia: Deferred Rectal: Deferred - Studies Laboratory Data (last 24 hrs) 02/18/24 02/18/24 08:10 08:10 WBC 9.80 Hgb 13.2 L Hct 40.1 Plt Count 388 Sodium 137 Potassium 3.3 L BUN 10 Creatinine 0.69 L Glucose 141 H Total Bilirubin 0.8 AST 12 L ALT 22 Alkaline Phosphatase 238 H Lipase 13 <Sera Cardonalen - Last Filed: 02/18/24 12:27> - Studies Laboratory Data (last 24 hrs) 02/18/24 02/18/24 08:10 08:10 WBC 9.80 Hgb 13.2 L Hct 40.1 Plt Count 388 Sodium 137 Potassium 3.3 L BUN 10 Creatinine 0.69 L Glucose 141 H Total Bilirubin 0.8 AST 12 L ALT 22 Alkaline Phosphatase 238 H Lipase 13 <Leslie Taylor C - Last Filed: 02/18/24 15:19> Assessment and Plan - Plan Recurrent/chronic constipation Lactulose 20mg Q6h x [address] Estrada Chronic pain no pain medications at this time secondary to chief c/o constipation HTN continue home medication Medical history states a. fib. No medications for a. fib on medication list states he used to take ativan for it - discussed with pt that is not a tx for a. fib questioned about anticoagulation medications - states "they didn't work" 12 lead EKG Contact isolation: Concern for bedbugs DVT prophylaxis SCDs Discharge Plan: Home Plan to discharge in: 24 Hours - Advance Directives Does patient have a Living Will: No Does patient have a Durable POA for Healthcare: No <Sera Cardonalen - Last Filed: 02/18/24 12:27> - Plan Pt seen and examined. I agree with the note by the BANQU[employer] SERVER. Pt is a 73yo male with past medical history of hypertension, chronic pain, constipation, A. fib and DM who presents with abdominal cramp and constipation. The abdominal pain started a few days ago and progressively worsened. On admission, pt reports constipation. Lab studies are unremarkable except 3.[address] abd shows moderate formed stool in the rectum with perirectal edema concerning for fecal impaction and possible stercoral colitis. Bladder wall thickening and hyperenhancement. It also shows severe intra and extrahepatic biliary duct dilatation. At bedside, pt reports having 2 episodes of water stool. Gen surgery evaluated pt and did not make further recommendation because his abdomen is soft. At bedside, pt is in NAD. A/P: Abd pain/ cramp: CT abd shows stool in the rectum. Will continue lactulose. Gen surgeon signed off. No need for disimpaction. Severe intra and extrahepatic biliary duct dilatation: Per CT abd. Will f/u MRCP. Continue home med for other chronic medical problems. Continue contact isolation for possible bedbugs. <Leslie Taylor - Last Filed: 02/18/24 15:19>
[2024-02-18 13:08] VITALS: O2SAT 100
[2024-02-18 16:01] VITALS: BMI 26.3
[2024-02-18] MEDS: INSULIN REGULAR (HUMAN) 100 UNIT/ML SQ SCH (16:30)
[2024-02-18] MEDS: POTASSIUM 25 MEQ EFFERV TAB PO ONE (18:47)
[2024-02-18] MEDS: metroNIDAZOLE 250 MG TABLET PO SCH (21:00)
[2024-02-18] MEDS: levoFLOXacin 500 MG TAB PO SCH (21:02)
[2024-02-18] MEDS: MELATONIN 5 MG TABLET PO SCH (23:22)
[2024-02-18] MEDS: HYDROMORPHONE HCL 1 MG/ML INJ IV PRN (23:22)
[2024-02-19 06:55] LABS: Absolute Eosinophils 0.3 K/uL (0-0.5); Absolute Lymphocytes (CBC) 1.5 K/uL (0.7-4.9); Absolute Monocytes 0.9 K/uL (0.1-1.3); Absolute Neutrophil 5.9 K/uL (1.8-8.0); Basophils % 0.5 % (0-1.3); Hematocrit 37.2 % (39.6-49.0); Hemoglobin 12.7 g/dL (13.6-17.9); Lymphocytes % 17.3 % (15.3-44.8); MCH 30.7 pg (27.0-35.0); MCHC 34.1 g/dL (32.0-36.0); MCV 90.1 fL (80-100); MPV 6.1 fL (7.6-11.3); Monocytes % 10.3 % (3.3-12.3); Neutrophils % 68.9 % (41.7-73.7); Nucleated Red Blood Cells % 0.1 % (0-0); Platelets 379 thou/uL (152-406); RBC Red Blood Cell Count 4.12 M/uL (4.33-5.43); Red Cell Distribution Width 15.1 % (12.1-15.2)
[2024-02-19 07:14] LABS: Albumin 2.9 g/dL (3.4-5.0); Albumin/Globulin Ratio 0.7 (1.1-1.8); Bilirubin Direct 0.3 mg/dL (0-0.2); Bilirubin Indirect, Calculated 0.5 mg/dL (0.2-0.8); Bilirubin Total 0.8 mg/dL (0.2-1.0); Globulin 3.9 g/dL (2.3-3.5); Protein, Total 6.8 g/dL (6.4-8.2)
[2024-02-19] MEDS: INSULIN REGULAR (HUMAN) 100 UNIT/ML SQ SCH (07:30)
--- NOTE | 2024-02-19 14:03 | EKG ---
Test Date: 2024-02-18 Test Time: 13:15:08 Social Science Teacher: VON MEASUREMENT RESULTS: Intervals: Rate: 106 MD: 166 QRSD: 84 QT: 374 QTc: 496 [place]: P: 53 MD: 166 QRS: -2 T: 35 INTERPRETIVE STATEMENTS: Sinus tachycardia Low voltage QRS Possible Inferior infarct, age undetermined Abnormal ECG Compared to ECG 01/28/2024 15:54:12 Low QRS voltage now present Myocardial infarct finding now present Sinus rhythm no longer present Electronically Signed On 02-19-24 13:59:53 CDT by Óscar Holman
[2024-02-19] MEDS ORDERED: MELATONIN 5 MG TABLET PO SCH (21:00)
--- NOTE | 2024-02-19 23:32 | RAD REPORT ---
EXAM DESCRIPTION: MRI - Cholangiogram - 02/19/2024 8:41 pm CLINICAL HISTORY: dilated bile duct COMPARISON: Abdomen Pelvis W Contrast dated 02/18/2024; Abdomen Pelvis Wo Contrast dated 01/16/2023 TECHNIQUE: Multiplanar multisequence MRI of the abdomen, obtained without IV contrast, utilizing [employer] TEST TECHNICIAN sequences. FINDINGS: Status post cholecystectomy. Common bile duct is prominent caliber throughout, measuring 11 mm. Triangular suspected filling defec t most distally in the common bile duct, measuring 7 mm, may represent a mucosal fold versus an adher ent small calculus. Central intrahepatic biliary ductal dilation with mild atrophy of the left liver lobe. Main pancreatic duct is not dilated. The visualized aspects of the liver, spleen, adrenal glands, pancreas, and kidneys are otherwise unre markable. Visualized aspects of the bowel are unremarkable. No suspicious osseous lesions. Elevation of the right hemidiaphragm. Visualized lung bases are unremarkable. IMPRESSION: Prominent caliber of the common bile duct with central intrahepatic biliary ductal dilat ion. Triangular suspected 7 mm filling defect most distally and the common bile duct, may represent a muco jeb fold versus an adherent small calculus.
--- NOTE | 2024-02-20 07:55 | P.DS ---
Admission Date: 02/18/24 Discharge Date: 02/20/24 Reason for Admission: Constipation Consultations: Dr. Estrada Brief History of Present Illness: Mr. Ngo is a 73-year-old gentleman who is well-known to the ED. he has a history of hypertension, chronic pain, constipation. Medical records indicate that he also has a history of insulin-dependent diabetes and atrial fibrillation; however, his pharmacy med list has no medications for these conditions. He states he is no longer diabetic. He states he does have a history of atrial fibrillation and he used to take Ativan for it. I questioned him about blood thinners and he states he does not take any because "they did not work". Will obtain 12 lead EKG. Mr. Ngo lives at home with his . He states he has a hospital bed and if he can get out of it he does pretty well with a walker or wheelchair. Laboratory evaluation in the emergency department is unremarkable. CT evaluation of the abdomen reveals "impression moderate formed stool in the rectum with perirectal edema concerning for fecal impaction and possible stercoral colitis. Bladder wall thickening and hyperenhancement. Correlate with urinalysis to exclude cystitis. Other chronic findings including severe intra and extrahepatic biliary duct dilatation. This could be further evaluated with either MRCP or ERCP as clinically indicated." He will be admitted to the hospital for observation for administration of lactulose, consultation with Dr. Estrada, and on contact isolation as there was concern for bedbugs. Hospital Course: Mr. Ngo had relief of his constipation without mechanical intervention. It was again noted that he had a very dilated biliary duct, so in an abundance of caution, an MRCP was performed while patient was in the hospital for investigation. It is important to follow-up with GI on an outpatient basis. <Sera Cardona - Last Filed: 02/20/24 09:15> Admission Date: 02/18/24 Discharge Date: 02/20/24 Hospital Course: Pt dorothy nd examined. I agree withe the note by the PROGRAM SCHEDULE CLERK. Pt had BM on admission. There was no need for disimpaction. MRCP shows 11 mm CBD central intrahepatic bilaiary ductal dilation. Pt was advised to follow up with GI in clinic. Ok to discharge pt. <Leslie Taylor - Last Filed: 02/20/24 12:59> Disposition: ROUTINE DISCHARGE Discharge Condition: GOOD Vital Signs/Physical Exam: Temp Pulse Resp BP Pulse Ox 97.2 F 116 H 18 146/80 H 99 02/20/24 04:00 02/20/24 04:00 02/20/24 04:00 02/20/24 04:00 02/20/24 04:00 General: Alert, In no apparent distress, Oriented x3 HEENT: Atraumatic, Normocephalic Neck: Supple Respiratory: Clear to auscultation bilaterally, Normal air movement Cardiovascular: No edema, Normal pulses Capillary refill: <2 Seconds Gastrointestinal: Soft and benign Musculoskeletal: No clubbing, Contractures (hands) Integumentary: No rashes Neurological: Normal speech, Normal affect Lymphatics: No axilla or inguinal lymphadenopathy External genitalia: Deferred Rectal: Deferred Laboratory Data at Discharge: WBC 8.50 thou/uL (4.3-10.9) 02/19/24 06:35 Hgb 12.7 g/dL (13.6-17.9) L 02/19/24 06:35 Hct 37.2 % (39.6-49.0) L 02/19/24 06:35 Plt Count 379 thou/uL (152-406) 02/19/24 06:35 Sodium 137 mEq/L (136-145) 02/18/24 08:10 Potassium 3.3 mEq/L (3.5-5.1) L 02/18/24 08:10 BUN 10 mg/dL (7-18) 02/18/24 08:10 Creatinine 0.69 mg/dL (0.70-1.30) L 02/18/24 08:10 Glucose 141 mg/dL (74-106) H 02/18/24 08:10 Total Bilirubin 0.8 mg/dL (0.2-1.0) 02/19/24 06:35 AST 14 U/L (15-37) L 02/19/24 06:35 ALT 19 U/L (16-61) 02/19/24 06:35 Alkaline Phosphatase 220 U/L (45-117) H 02/19/24 06:35 Triglycerides 74 mg/dL (<150) 02/19/24 06:35 Cholesterol 167 mg/dL (<200) 02/19/24 06:35 HDL Cholesterol 57 mg/dL (40-60) 02/19/24 06:35 Cholesterol/HDL Ratio 2.93 02/19/24 06:35 Lipase 13 U/L (13-75) 02/18/24 08:10 <Sera Cardona Richy - Last Filed: 02/20/24 09:15> Vital Signs/Physical Exam: Temp Pulse Resp BP Pulse Ox 97.1 F 126 H 17 152/79 H 100 02/20/24 08:00 02/20/24 08:00 02/20/24 08:00 02/20/24 08:00 02/20/24 08:00 Laboratory Data at Discharge: WBC 8.50 thou/uL (4.3-10.9) 02/19/24 06:35 Hgb 12.7 g/dL (13.6-17.9) L 02/19/24 06:35 Hct 37.2 % (39.6-49.0) L 02/19/24 06:35 Plt Count 379 thou/uL (152-406) 02/19/24 06:35 Sodium 137 mEq/L (136-145) 02/18/24 08:10 Potassium 3.3 mEq/L (3.5-5.1) L 02/18/24 08:10 BUN 10 mg/dL (7-18) 02/18/24 08:10 Creatinine 0.69 mg/dL (0.70-1.30) L 02/18/24 08:10 Glucose 141 mg/dL (74-106) H 02/18/24 08:10 Total Bilirubin 0.8 mg/dL (0.2-1.0) 02/19/24 06:35 AST 14 U/L (15-37) L 02/19/24 06:35 ALT 19 U/L (16-61) 02/19/24 06:35 Alkaline Phosphatase 220 U/L (45-117) H 02/19/24 06:35 Triglycerides 74 mg/dL (<150) 02/19/24 06:35 Cholesterol 167 mg/dL (<200) 02/19/24 06:35 HDL Cholesterol 57 mg/dL (40-60) 02/19/24 06:35 Cholesterol/HDL Ratio 2.93 02/19/24 06:35 Lipase 13 U/L (13-75) 02/18/24 08:10 <Leslie Taylor - Last Filed: 02/20/24 12:59> Diet: AHA Activity: Ad annette <Sera Cardona - Last Filed: 02/20/24 09:15> <Leslie Taylor - Last Filed: 02/20/24 12:59> Home Medications: Tizanidine HCl [Zanaflex] 4 mg PO BID PRN 03/11/21 Venlafaxine HCl *Xr* [Effexor XR*] 75 mg PO BEDTIME 01/17/23 Acetaminophen with Codeine [Acetaminophen-Cod #4 Tablet] 1 tab PO QID PRN 01/28/24 clonazePAM [Clonazepam] 0.5 mg PO QID 01/28/24 Amlodipine [Norvasc*] 10 mg PO DAILY 01/29/24 Lactulose 30 ml PO DAILY PRN #16 oz 02/20/24 New Medications: Lactulose 30 ml PO DAILY PRN #16 oz PRN Reason: Constipation Physician Discharge Instructions: Mr. Ngo had relief of his constipation without mechanical intervention. It was again noted that he had a very dilated biliary duct, so in an abundance of caution, an MRCP was performed while patient was in the hospital for investigation. It is important to follow-up with GI on an outpatient basis. Report of MRCP given to patient on discharge. Okay to DC IV and DC home Follow-up with primary care provider in 1 to 2 weeks Follow-up with gastrointerology in 1 to 2-week Please call the inpatient unit for any questions or concerns regarding hospital stay Return to the ER for worsening symptoms Followup: Ruben Ball MD [ASSOCIATE-ACTIVE - CAN ADMIT] - Betzy Rodriguez FNP [Primary Care Provider] -
[2024-02-20 08:30] VITALS: BP 152/79; TEMP 97.1
--- NOTE | 2024-02-20 14:39 | CON ---
Date of Consultation: 02/18/2024 Brief History Of Present Illness: The patient is a 73-year-old male who is known to the emergency de partment with a history of hypertension, chronic pain, constipation, who has diabetes, atrial fibrill ation. He came to the hospital with some abdominal pain and decreased bowel function for approximate ly 4 days prior to his admission. However, since being in the hospital, he states that he has had si gnificant bowel movements with passage of multiple bowel movements hard initially and now diarrhea an d has had multiple bowel movements and feels significant improvement without any abdominal pain and n o complaints whatsoever at this time. He is completely asymptomatic with respect to his gastrointest inal track and abdominal exam. He has no further complaints with respect to this area. Past Medical History: Diabetes; anxiety; atrial fibrillation; osteoarthritis; pancreatitis; lipidemi a; chronic pain; neuropathy; hypertension; chronic pain to the right hip, leg, and ankle; chronic peace k pain; tachycardia. Past Surgical History: Includes 3 foot surgeries, bilateral knee surgery, right shoulder surgery, ch olecystectomy, multiple back surgeries, pancreatic surgery with a distal pancreatectomy. Family History: Significant for dementia. Social History: Denies smoking, alcohol, or recreational drug use. Allergies: TO MEPERIDINE, METFORMIN, MORPHINE, CLINDAMYCIN. Home Medications: Include Zanaflex, Effexor, Tylenol No. 4, clonazepam, Norvasc. Review of Systems: Ten-point review of systems other than HPI denies. Physical Examination: At the time of my examination. General: He is awake, alert, and oriented. Psychiatric: He is appropriate, conversive. HEENT: He is normocephalic. Sclerae icteric. Mucous membranes are moist. Oropharynx clear. Neck: Supple without JVD. Chest: Normal expansion and excursion. Cardiovascular: Regular rate and rhythm. Pulmonary: Clear to auscultation bilaterally. Abdomen: Soft, nontender, nondistended. No rebound. No guarding. No focal peritonitis. No fullne ss. No masses. He has essentially a benign abdominal exam at this point. Extremities: No clubbing, cyanosis, or edema. Skin: Warm and dry. Laboratory Data: Revealed a white blood cell count of 9.8, hemoglobin 13.2, hematocrit of 40.1, plat elet count was 388. His sodium was 137, potassium 3.3, chloride 103, carbon dioxide 28, BUN 10, crea tinine 0.6, glucose 141. His bilirubin was 0.8. His AST 12, ALT 22, alkaline phosphatase is 238. H is lipase is 13. He had imaging performed, which included a CT of the abdomen and pelvis, which officially read as mod erate, formed stool in the rectum and perirectal edema concerning for fecal impaction and possible st ercoral colitis, bladder wall thickening, hyperenhancement. 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 I have discussed this with the radiologist, Dr. Hirsch, who states that this has been present for at least 7 to 10 years on previous i maging, but does continue to slowly progressively enlarge, but has been present for a long period of time by previous imaging report. Assessment And Plan: This is a 73-year-old male who came in with abdominal pain due to stercoral col itis, who likely has resolved his gastrointestinal obstructive-type symptoms at this point, is having multiple bowel movements, feels significant symptomatic improvement. 1.IV fluid hydration. 2.Antibiotic coverage. 3.Serial exams. 4.Recommend MRCP to better define and delineate the etiology of his intrahepatic and extrahepatic bi liary ductal dilatation. I have strongly recommended that the patient followup with a patcher wood welder as an outpatient to e nsure that he gets a full workup of his intrahepatic and extrahepatic biliary ductal dilatation as th is could have a malignant possibility and I know he has had previous pancreatic surgery, of which he is unclear of the exact etiology as such, I recommend gastroenterology followup and ongoing workup to ensure that there are no pathologic findings on this hepatobiliary pancreatic system at this point. The patient displayed understanding of the above stated plan, agreed to proceed as indicated. I hav e also discussed the case with the primary medical team, who also agrees with the above stated plan. We will plan for an MRCP and consult GI accordingly. JOSEPH/TAMIKA Voice ID: [id number] Report ID: [id number]
== END 2024-02-20 10:16 | disposition home or self-care (01) ==
LOC: ER 07:45 → ERHOLD 11:51 → 2ND 12:16
PROVIDERS: ADMIT Hospitalist; ATTEND Hospitalist
DX: K56.41 Fecal impaction (principal); K52.89 Other specified noninfective gastroenteritis and colitis; K83.8 Other specified diseases of biliary tract; I10 Essential (primary) hypertension; G89.29 Other chronic pain; E11.9 Type 2 diabetes mellitus without complications; I48.91 Unspecified atrial fibrillation; F41.9 Anxiety disorder, unspecified; M19.90 Unspecified osteoarthritis, unspecified site; K85.90 Acute pancreatitis without necrosis or infection, unspecified; M79.604 Pain in right leg; M25.551 Pain in right hip; Z88.5 Allergy status to narcotic agent; Z79.4 Long term (current) use of insulin; Z88.8 Allergy status to other drugs, medicaments and biological substances; Z88.3 Allergy status to other anti-infective agents
CPT/HCPCS: 96361; 93005; 85025 ×2; 81001; 36415; 80061; 82947 ×8; 80076; 87324; 83690; 80053; 74177; 74181; 51702; 96374; 99285; Q9967; J1170 ×6; J7030; G0378 ×4

== ENCOUNTER 2024-03-16 00:57 | Emergency (ER) | payer OTHER ==
[2024-03-16 02:01] LABS: Absolute Eosinophils 0.2 K/uL (0-0.5); Absolute Lymphocytes (CBC) 1.7 K/uL (0.7-4.9); Absolute Monocytes 0.4 K/uL (0.1-1.3); Absolute Neutrophil 7.1 K/uL (1.8-8.0); Basophils % 0.4 % (0-1.3); Eosinophils % 2.3 % (0-4.4); Hematocrit 41.8 % (39.6-49.0); Hemoglobin 13.9 g/dL (13.6-17.9); Lymphocytes % 17.8 % (15.3-44.8); MCH 30.3 pg (27.0-35.0); MCHC 33.4 g/dL (32.0-36.0); MCV 90.8 fL (80-100); MPV 6.3 fL (7.6-11.3); Monocytes % 4.7 % (3.3-12.3); Neutrophils % 74.8 % (41.7-73.7); Nucleated Red Blood Cells % 0.2 % (0-0); Platelets 291 thou/uL (152-406); Red Cell Distribution Width 15.5 % (12.1-15.2)
[2024-03-16] MEDS ORDERED: LACTULOSE 20 GM/30 ML UCUP ONE (02:04)
[2024-03-16] MEDS ORDERED: FLEET ENEMA ADULT PR ONE (02:04)
[2024-03-16 02:14] LABS: Albumin 3.1 g/dL (3.4-5.0); Albumin/Globulin Ratio 0.7 (1.1-1.8); Anion Gap 11.7 mEq/L (5.0-15.0); Bilirubin Total 0.6 mg/dL (0.2-1.0); Globulin 4.4 g/dL (2.3-3.5); Potassium 3.7 mEq/L (3.5-5.1); Protein, Total 7.5 g/dL (6.4-8.2)
[2024-03-16] MEDS ORDERED: NA CHLORIDE 0.9% 1,000 ML ONE (03:45)
--- NOTE | 2024-03-16 05:02 | ER ---
Nurse's Notes [facility] Name: Kiel Ngo Age: 73 yrs Sex: Male : 1950 Arrival Date: 03/16/2024 Time: 00:57 Bed 5 Private MD: Diagnosis: Constipation, unspecified Presentation: 03/16 00:58 Chief complaint: EMS states: toned out for constipation; pt reports last BM today "but km8 painful"; denies blood in stool or bleeding from rectum. Coronavirus screen: Client denies travel out of the [place] in the last 14 days. Ebola Screen: No symptoms or risks identified at this time. Initial Sepsis Screen: Does the patient meet any 2 criteria? HR > 90 bpm. No. Patient's initial sepsis screen is negative. Does the patient have a suspected source of infection? No. Patient's initial sepsis screen is negative. Risk Assessment: Do you want to hurt yourself or someone else? Patient reports no desire to harm self or others. Onset of symptoms is unknown. 00:58 Method Of Arrival: EMS km8 00:58 Acuity: JOZEF 3 km8 Triage Assessment: 00:58 General: Appears uncomfortable, Behavior is cooperative, appropriate for age. Pain: km8 Complains of pain in back and rectum Pain currently is 10 out of 10 on a pain scale. EENT: No signs and/or symptoms were reported regarding the EENT system. Neuro: Level of Consciousness is awake, alert, obeys commands, Oriented to person, place, time, situation. Cardiovascular: Denies chest pain, shortness of breath, Patient's skin is warm and dry. Respiratory: Airway is patent Respiratory effort is even, unlabored, Respiratory pattern is regular, symmetrical. GI: Abdomen is obese, Reports constipation, Patient currently denies abdominal pain, bloody stool. : No signs and/or symptoms were reported regarding the genitourinary system. Derm: Skin is intact, is healthy with good turgor, Skin is dry, Skin is pink, warm \\T\\ dry. normal, Skin temperature is warm. Musculoskeletal: Reports pain in back. Historical: - Allergies: 00:58 Demerol; km8 00:58 metformin; km8 - PMHx: 00:58 Atrial fibrillation; chronic back pain; Chronic right leg pain; lymphedema; neuropathy; km8 - PSHx: 00:58 back sx; PANCREAS SX; R. Ankle SX; km8 - Immunization history:: Adult Immunizations unknown. - Infectious Disease History:: Denies. - Social history:: Smoking status: Patient denies any tobacco usage or history of. Screenin:58 [facility] ED Fall Risk Assessment (Adult) History of falling in the last 3 months, km8 including since admission No falls in past 3 months (0 pts) Confusion or Disorientation No (0 pts) Intoxicated or Sedated No (0 pts) Impaired Gait Yes (1 pt) Mobility Assist Device Used Yes (1 pt) Altered Elimination No (0 pt) Score/Fall Risk Level 0 - 2 = Low Risk Oriented to surroundings, Maintained a safe environment, Educated pt \\T\\ family on fall prevention, incl call for assistance when getting out of bed, Assessed \\T\\ reinforced patient's understanding of fall precautions. Abuse screen: Denies threats or abuse. Denies injuries from another. Nutritional screening: No deficits noted. Tuberculosis screening: No symptoms or risk factors identified. Assessment: 00:58 Reassessment: see triage assessment. km8 02:00 Reassessment: Patient appears in no apparent distress at this time. No changes from km8 previously documented assessment. Patient and/or family updated on plan of care and expected duration. Pain level reassessed. Patient is alert, oriented x 3, equal unlabored respirations, skin warm/dry/pink. 02:20 Reassessment: pt had soft BM; still requesting FLEET enema. km8 03:00 Reassessment: Patient appears in no apparent distress at this time. No changes from [facility] previously documented assessment. Patient and/or family updated on plan of care and expected duration. Pain level reassessed. Patient is alert, oriented x 3, equal unlabored respirations, skin warm/dry/pink. 04:00 Reassessment: Patient appears in no apparent distress at this time. Patient and/or [facility] family updated on plan of care and expected duration. Pain level reassessed. Patient is alert, oriented x 3, equal unlabored respirations, skin warm/dry/pink. Patient states feeling better. Patient states symptoms have improved. 05:20 Reassessment: Patient appears in no apparent distress at this time. No changes from [facility] previously documented assessment. Patient and/or family updated on plan of care and expected duration. Pain level reassessed. Patient is alert, oriented x 3, equal unlabored respirations, skin warm/dry/pink. waiting on ride home by EMS. Vital Signs: 00:58 BP 169 / 98; Pulse 141; Resp 18; Temp 98.1(O); Pulse Ox 100% on R/A; Weight 85.73 kg km8 (R); Height 5 ft. 11 in. (R); Pain 10/10; 01:30 BP 143 / 86; Pulse 141; Resp 18; Pulse Ox 100% on R/A; km8 02:00 BP 107 / 65; Pulse 131; Resp 16; Pulse Ox 99% on R/A; km8 02:30 BP 129 / 75; Pulse 136; Resp 16; Pulse Ox 100% on R/A; km8 03:00 BP 148 / 97; Pulse 138; Resp 16; Pulse Ox 97% on R/A; km8 03:30 BP 138 / 86; Pulse 115; Resp 16; Pulse Ox 97% on R/A; km8 04:00 BP 147 / 76; Pulse 123; Resp 16; Pulse Ox 97% on R/A; km8 05:21 BP 150 / 87; Pulse 115; Resp 16; Pulse Ox 97% on R/A; km8 00:58 Body Mass Index 26.36 (85.73 kg, 180.34 cm) km8 00:58 Pain Scale: Adult km8 Gayathri Coma Score: 00:58 Eye Response: spontaneous(4). Motor Response: obeys commands(6). Verbal Response: km8 oriented(5). Total: 15. ED Course: 00:58 Patient arrived in ED. rv1 00:58 Nate Sifuentes MD is Attending Physician. rt 00:58 Arm band placed on left wrist. km8 00:58 Patient has correct armband on for positive identification. Placed in gown. Bed in low km8 position. Call light in reach. Side rails up X2. Client placed on continuous cardiac and pulse oximetry monitoring. NIBP monitoring applied. monitoring engineer on. Pulse ox on. NIBP on. Warm blanket given. Turned to right side. 00:58 Provided Education on: call light use. km8 01:23 Tona Zimmerman RN is Primary Nurse. km8 01:42 CBC with Diff Sent. km8 01:42 CMP Sent. km8 01:42 Lipase Sent. km8 01:42 Missed attempt(s): 22 gauge in left forearm. Bleeding controlled, band aid applied, km8 catheter tip intact. 01:42 Initial lab(s) drawn, by me, sent to lab. km8 01:57 Triage completed. km8 02:20 Cleaned of incontinence. Linen changed. km8 03:30 Accessed peripheral vein via ultrasound, utilizing dynamic ultrasound technique using km8 20G Nexia IV catheter Clean \\T\\ dry. Dressing intact. Good blood return. Flushes easily. 03:35 CT Abd/Pelvis - IV Contrast Only In Process Unspecified. EDMS 04:55 No provider procedures requiring assistance completed. km8 05:19 IV discontinued, intact, bleeding controlled, No redness/swelling at site. Pressure km8 dressing applied. Administered Medications: 02:27 Drug: Lactulose PO 30 grams 45 ml PO once Volume: 45 ml; Route: PO; km8 03:56 Follow up: Response: No adverse reaction km8 02:27 Drug: Fleet Enema AR 133 ml AR once; may repeat once Route: AR; km8 03:56 Follow up: Response: No adverse reaction km8 03:56 Drug: NS 0.9% IV 1000 ml IV at 1 bolus Per protocol; 1000 mL bolus Route: IV; Rate: 1 km8 bolus; Site: right antecubital; 05:00 Follow up: IV Status: Completed infusion; IV Intake: 1000ml km8 Medication: 00:58 VIS not applicable for this client. km8 Intake: 05:00 IV: 1000ml; Total: 1000ml. 8 Outcome: 05:01 Discharge ordered by . rt 05:38 Discharged to home via ambulance, 05:38 Condition: good 05:38 Instructed on discharge instructions, follow up and referral plans. medication usage, Demonstrated understanding of instructions, follow-up care, medications, Prescriptions given X 1, 05:38 Patient left the ED. km8 Signatures: Dispatcher [employer] EDNate Wells MD MD rt Linda Wilde rv1 Tona Zimmerman, RN RN km8
--- NOTE | 2024-03-16 05:02 | EDPHYS ---
Physician Documentation [facility] Name: Kiel Ngo Age: 73 yrs Sex: Male : 1950 Arrival Date: 03/16/2024 Time: 00:57 Bed 5 Private MD: ED Physician Nate Sifuentes HPI: 03/16 01:21 This 73 yrs old Male presents to ER via Unassigned with complaints of Constipation. rt 01:21 Patient presents to the ED with reported constipation. Patient states that he has not rt had bowel movement about 1 week. Reports pain to his rectum, denies any abdominal pain. Denies other acute complaints at this time. Symptoms are moderate in severity, no other aggravating or alleviating factors.. Historical: - Allergies: 00:58 Demerol; km8 00:58 metformin; 8 - PMHx: 00:58 Atrial fibrillation; chronic back pain; Chronic right leg pain; lymphedema; neuropathy; km8 - PSHx: 00:58 back sx; PANCREAS SX; R. Ankle SX; km8 - Immunization history:: Adult Immunizations unknown. - Infectious Disease History:: Denies. - Social history:: Smoking status: Patient denies any tobacco usage or history of. ROS: 01:21 Constitutional: Negative for fever, chills, and weight loss, Cardiovascular: Negative rt for chest pain, palpitations, and edema, Respiratory: Negative for shortness of breath, cough, wheezing, and pleuritic chest pain, Skin: Negative for injury, rash, and discoloration, Neuro: Negative for headache, weakness, numbness, tingling, and seizure, 01:21 Abdomen/GI: Positive for constipation, Negative for abdominal pain, Exam: 01:21 Constitutional: This is a well developed, well nourished patient who is awake, alert, rt and in no acute distress. Head/Face: Normocephalic, atraumatic. Chest/axilla: Normal chest wall appearance and motion. Nontender with no deformity. No lesions are appreciated. Cardiovascular: Regular rate and rhythm with a normal S1 and S2. No gallops, murmurs, or rubs. Normal PMI, no JVD. No pulse deficits. Respiratory: Lungs have equal breath sounds bilaterally, clear to auscultation and percussion. No rales, rhonchi or wheezes noted. No increased work of breathing, no retractions or nasal flaring. Abdomen/GI: Soft, non-tender, with normal bowel sounds. No distension or tympany. No guarding or rebound. No evidence of tenderness throughout. Skin: Warm, dry with normal turgor. Normal color with no rashes, no lesions, and no evidence of cellulitis. Neuro: Awake and alert, GCS 15, oriented to person, place, time, and situation. Cranial nerves II-XII grossly intact. Motor strength 5/5 in all extremities. Sensory grossly intact. Cerebellar exam normal. Normal gait. 03:55 ECG was reviewed by the Attending Physician. rt Vital Signs: 00:58 BP 169 / 98; Pulse 141; Resp 18; Temp 98.1(O); Pulse Ox 100% on R/A; Weight 85.73 kg km8 (R); Height 5 ft. 11 in. (R); Pain 10/10; 01:30 BP 143 / 86; Pulse 141; Resp 18; Pulse Ox 100% on R/A; km8 02:00 BP 107 / 65; Pulse 131; Resp 16; Pulse Ox 99% on R/A; km8 02:30 BP 129 / 75; Pulse 136; Resp 16; Pulse Ox 100% on R/A; km8 03:00 BP 148 / 97; Pulse 138; Resp 16; Pulse Ox 97% on R/A; km8 03:30 BP 138 / 86; Pulse 115; Resp 16; Pulse Ox 97% on R/A; km8 04:00 BP 147 / 76; Pulse 123; Resp 16; Pulse Ox 97% on R/A; km8 05:21 BP 150 / 87; Pulse 115; Resp 16; Pulse Ox 97% on R/A; km8 00:58 Body Mass Index 26.36 (85.73 kg, 180.34 cm) [facility] 00:58 Pain Scale: Adult km8 [place] Coma Score: 00:58 Eye Response: spontaneous(4). Motor Response: obeys commands(6). Verbal Response: km8 oriented(5). Total: 15. MDM: 01:02 Patient medically screened. rt 05:02 Differential Diagnosis Opioid-induced constipation, bowel obstruction, stercoral rt proctitis. 05:03 Data reviewed: vital signs, nurses notes, lab test result(s), EKG, radiologic studies. rt Consideration of Admission/Observation Escalation of care including admission/observation considered. I considered the following discharge prescriptions or medication management in the emergency department Medications were administered in the Emergency Department. See MAR. Independent interpretation of the following test(s) in the Emergency Department CT Scan: My interpretation is No bowel obstruction seen on interpretation of CT scan images. Care significantly affected by the following chronic conditions: A-fib. Counseling: I had a detailed discussion with the patient and/or guardian regarding the historical points, exam findings, and any diagnostic results supporting the discharge/admit diagnosis, lab results, radiology results, the need for outpatient follow up. Response to treatment: the patient's symptoms have markedly improved after treatment. 03/16 01:05 Order name: CBC with Diff; Complete Time: 02:17 rt 03/16 01:05 Order name: CMP; Complete Time: 02:17 rt 03/16 01:05 Order name: Lipase; Complete Time: 02:17 rt 03/16 01:05 Order name: CT Abd/Pelvis - IV Contrast Only rt 03/16 01:05 Order name: IV Saline Lock; Complete Time: 03:23 rt 03/16 01:05 Order name: Labs collected and sent; Complete Time: 01:42 rt 03/16 02:18 Order name: EKG - Nurse/Tech; Complete Time: 03:56 rt EC:55 Rate is 116 beats/min. Rhythm is regular, Sinus tachycardia with No ectopy. QRS [place] is rt Normal. CA interval is normal. QRS interval is normal. QT interval is normal. No Q waves. No ST changes noted. Interpreted by me. Administered Medications: 02:27 Drug: Lactulose PO 30 grams 45 ml PO once Volume: 45 ml; Route: PO; km8 03:56 Follow up: Response: No adverse reaction 02:27 Drug: Fleet Enema CA 133 ml CA once; may repeat once Route: CA; km8 03:56 Follow up: Response: No adverse reaction 03:56 Drug: NS 0.9% IV 1000 ml IV at 1 bolus Per protocol; 1000 mL bolus Route: IV; Rate: 1 km8 bolus; Site: right antecubital; 05:00 Follow up: IV Status: Completed infusion; IV Intake: 1000ml km8 Disposition Summary: 06/04/24 05:01 Discharge Ordered Notes: Location: Home rt Problem: an ongoing problem rt Symptoms: have improved rt Condition: Stable rt Diagnosis - Constipation, unspecified rt Followup: rt - With: Private Physician - When: 2 - 3 days - Reason: Discharge Instructions: - Discharge Summary Sheet rt - Constipation, Adult rt Forms: - Medication Reconciliation Form rt - Antibiotic Education rt - Prescription Opioid Use rt - Patient Portal Instructions rt - Leadership Thank You Letter rt Prescriptions: - Miralax 17 gram Oral powder in packet - take 1 packet ORAL route daily; 7 packet; Refills: 0, Product Selection rt Permitted Signatures: Dispatcher [employer] EDMS Nate Sifuentes MD MD rt Tona Zimmerman RN RN km8 Corrections: (The following items were deleted from the chart) 01:06 01:06 CBC+H.LAB.BRZ ordered. EDMS EDMS 01:06 01:06 COMPREHENSIVE METABOLIC PANEL+C.LAB.BRZ ordered. EDMS EDMS 01:06 01:06 LIPASE+C.LAB.BRZ ordered. EDMS EDMS 01:06 01:06 Abdomen Pelvis W Con+CT.RAD.BRZ ordered. EDMS EDMS
[2024-03-16 05:59] VITALS: BP 150/87; TEMP 98.1; O2SAT 97
--- NOTE | 2024-03-16 11:30 | RAD REPORT ---
EXAM DESCRIPTION: CT - Abdomen Pelvis W Contrast - 03/16/2024 6:59 am CLINICAL HISTORY: CONSTIPATION COMPARISON: 02/18/2024. TECHNIQUE: CT ABDOMEN PELVIS WITH IV CONTRAST on 03/16/2024 1:05 AM CDT This exam was performed according to our departmental dose-optimization program, which includes autom ated exposure control, adjustment of the mA and/or kV according to patient size and/or use of iterati ve reconstruction technique. FINDINGS: Lower lungs are clear. Abdomen: The liver is normal in appearance. There is mild intra and extrahepatic biliary dilatation. Gallbladder is not clearly seen. Pancreas is poorly seen. Spleen is normal in size. Adrenal glands ar e normal. Kidneys are mildly atrophic. There are multiple bilateral renal cysts measuring up to 3.1 c m. There is no hydronephrosis. Abdominal aorta is normal in course and caliber without aneurysm. There is no free air. There is no r etroperitoneal adenopathy. Pelvis: There is large amount stool throughout the colon. Urinary bladder is unremarkable. There is n o free fluid. Appendix is not clearly seen. Skeleton: There are no acute osseous findings. No suspicious bony lesions. IMPRESSION: Extensive constipation. Electronically signed by: Jaiden Malone MD 03/16/2024 04:55 AM CDT RP Due to temporary technical issues with the PACS/Fluency reporting system, reports are being signed by the in house radiologist without review as a courtesy to ensure prompt reporting. The interpreting r adiologist is fully responsible for the content of the report.
--- NOTE | 2024-03-16 13:17 | EKG ---
Test Date: 2024-03-16 Test Time: 03:53:26 Time Study Clerk: ANGE MEASUREMENT RESULTS: Intervals: Rate: 116 FL: 174 QRSD: 82 QT: 330 QTc: 458 Crane: P: 57 FL: 174 QRS: -19 T: 37 INTERPRETIVE STATEMENTS: Sinus tachycardia Possible Left atrial enlargement Inferior infarct, age undetermined Abnormal ECG Compared to ECG 02/18/2024 13:15:08 No significant changes Electronically Signed On 03-16-24 13:16:07 CDT by Óscar Holman
== END 2024-03-16 05:38 | disposition home or self-care (01) ==
LOC: ER 00:57
DX: K59.00 Constipation, unspecified (principal)
CPT/HCPCS: 93005; 85025; 36415; 83690; 80053; 74177; 96360; 99285; Q9967; J7030

== ENCOUNTER 2024-12-14 07:58 | Emergency (ER) | payer OTHER ==
--- NOTE | 2024-12-14 08:34 | EDPHYS ---
Physician Documentation [facility] Name: Kiel Ngo Age: 74 yrs Sex: Male : 1950 Arrival Date: 12/14/2024 Time: 07:58 Bed 3 Private MD: ED Physician Scotty Guzman HPI: 12/14 09:07 This 74 yrs old Male presents to ER via EMS with complaints of Back Pain. ms3 09:07 74-year-old male past medical history of atrial fibrillation, neuropathy, lymphedema, ms3 chronic leg pain, chronic back pain presents to the emergency department via his for right hip pain and low back pain that has become worse since Friday. EMS notes patient's temperature 98.6, blood glucose level 146. Patient states he is currently out of his Tylenol 3's and rates his pain a 10/10. He denies any alleviating or inciting factors. Patient acknowledges this is his chronic pain without change in characteristic.. Historical: - Allergies: 08:00 Demerol; bp 08:00 metformin; bp - PMHx: 08:00 Atrial fibrillation; neuropathy; lymphedema; Chronic right leg pain; chronic back pain; bp - PSHx: 08:00 back sx; PANCREAS SX; R. Ankle SX; bp - Immunization history:: Adult Immunizations up to date. - Infectious Disease History:: Denies. - Social history:: Smoking status: Patient denies any tobacco usage or history of. ROS: 09:07 Constitutional: Negative for fever, and chills. Cardiovascular: Negative for chest ms3 pain, and palpitations. Respiratory: Negative for shortness of breath, cough, wheezing, and pleuritic chest pain, Abdomen/GI: Negative for abdominal pain, nausea, vomiting, diarrhea, and constipation, 09:07 Back: Positive for Lower back pain, Exam: 09:07 Constitutional: This is a well developed, well nourished patient who is awake, alert, ms3 and in no acute distress. Cardiovascular: Regular rate and rhythm with a normal S1 and S2. No gallops, murmurs, or rubs. Normal PMI, no JVD. No pulse deficits. Respiratory: Lungs have equal breath sounds bilaterally, clear to auscultation and percussion. No rales, rhonchi or wheezes noted. No increased work of breathing, no retractions or nasal flaring. Abdomen/GI: Soft, non-tender, with normal bowel sounds. No distension or tympany. No guarding or rebound. No evidence of tenderness throughout. 09:07 Back: pain, that is moderate, Vital Signs: 07:59 BP 140 / 80; Pulse 100; Resp 16; Temp 98.6; Pulse Ox 97% ; bp 09:32 BP 132 / 78; Pulse 91; Resp 18; Temp 98.5; Pulse Ox 98% on R/A; ph MDM: 08:34 Medical Screening Exam initiated ms3 09:07 Differential diagnosis: Degenerative disc disease versus spinal stenosis versus muscle ms3 spasm. Data reviewed: vital signs, nurses notes, and as a result, I will discharge patient. I considered the following discharge prescriptions or medication management in the emergency department Medications were administered in the Emergency Department. See MAR. Historians other than the Patient: EMS: [facility]. Counseling: I had a detailed discussion with the patient and/or guardian regarding the historical points, exam findings, and any diagnostic results supporting the discharge/admit diagnosis, the need for outpatient follow up, to return to the emergency department if symptoms worsen or persist or if there are any questions or concerns that arise at home. Special discussion: I discussed with the patient/guardian in detail that at this point there is no indication for admission to the hospital. It is understood, however, that if the symptoms persist or worsen the patient needs to return immediately for re-evaluation. ED course: Discussed physical exam findings with patient. Patient to follow-up with pain management in 2 to 3 days. Patient understands and agrees with plan. All questions were answered. Return precautions discussed include worsening symptoms, or any other concerns.. Administered Medications: 09:04 Drug: Ketorolac IM 15 mg IM once Route: IM; Site: left deltoid; bp 09:32 Follow up: Response: No adverse reaction ph 09:04 Drug: Acetaminophen-Codeine PO (300 mg-30 mg) 1 tablet PO once; RASS on ADMIN: Combtv4, bp Very Agttd3, Agttd2, Rstlss1, AlertClm0, Drwsy-1, Lt Sdtn-2, Mod Sdtn-3, Dp Sdtn-4, UnArsble-5 Route: PO; 09:32 Follow up: Response: No adverse reaction ph Disposition Summary: 12/14/24 08:34 Discharge Ordered Notes: Location: Home ms3 Condition: Stable ms3 Diagnosis - Low back pain ms3 - Pain in right hip ms3 Followup: ms3 - With: Etienne Torres MD - When: 2 - 3 days - Reason: Re-evaluation by your physician Discharge Instructions: - Discharge Summary Sheet ms3 - Chronic Back Pain ms3 Forms: - Medication Reconciliation Form ms3 - Antibiotic Education ms3 - Prescription Opioid Use ms3 - Patient Portal Instructions ms3 - Leadership Thank You Letter ms3 Signatures: Quoc Demarco RN RN bp Scotty Guzman DO DO ms3 Prachi Nguyen RN ph Corrections: (The following items were deleted from the chart) 09:08 09:07 74-year-old male past medical history of atrial fibrillation, neuropathy, ms3 lymphedema, chronic leg pain, chronic back pain presents to the emergency department via his for right hip pain and low back pain that has become worse since Friday. EMS notes patient's temperature 98.6, blood glucose level 146. Patient states he is currently out of his Tylenol 3's and rates his pain a 10/10. He denies any alleviating or inciting factors.. ms3
--- NOTE | 2024-12-14 08:34 | ER ---
Nurse's Notes [facility] Name: Kiel Ngo Age: 74 yrs Sex: Male : 1950 Arrival Date: 12/14/2024 Time: 07:58 Bed 3 Private MD: Diagnosis: Low back pain;Pain in right hip Presentation: 12/14 07:59 Chief complaint: EMS states: CHRONIC BACK AND HIP PAIN SINCE 1992. Coronavirus screen: bp At this time, the client does not indicate any symptoms associated with coronavirus-19. Ebola Screen: No symptoms or risks identified at this time. Initial Sepsis Screen: Does the patient meet any 2 criteria? No. Patient's initial sepsis screen is negative. Does the patient have a suspected source of infection? No. Patient's initial sepsis screen is negative. Risk Assessment: Do you want to hurt yourself or someone else? Patient reports no desire to harm self or others. Onset of symptoms is unknown. Care prior to arrival: Glucose check: 146. 07:59 Method Of Arrival: EMS: [facility] bp 07:59 Acuity: JOZEF 5 bp Triage Assessment: 08:00 General: Appears in no apparent distress. Behavior is appropriate for age. Pain: bp Complains of pain in back. EENT: No deficits noted. Neuro: No deficits noted. Cardiovascular: No deficits noted. Respiratory: No deficits noted. GI: No signs and/or symptoms were reported involving the gastrointestinal system. : No signs and/or symptoms were reported regarding the genitourinary system. Derm: No deficits noted. Musculoskeletal: Circulation, motion, and sensation intact. Historical: - Allergies: 08:00 Demerol; bp 08:00 metformin; bp - PMHx: 08:00 Atrial fibrillation; neuropathy; lymphedema; Chronic right leg pain; chronic back pain; bp - PSHx: 08:00 back sx; PANCREAS SX; R. Ankle SX; bp - Immunization history:: Adult Immunizations up to date. - Infectious Disease History:: Denies. - Social history:: Smoking status: Patient denies any tobacco usage or history of. Screenin:01 [facility] ED Fall Risk Assessment (Adult) History of falling in the last 3 months, bp including since admission No falls in past 3 months (0 pts) Confusion or Disorientation No (0 pts) Intoxicated or Sedated No (0 pts) Impaired Gait No (0 pts) Mobility Assist Device Used No (0 pt) Altered Elimination No (0 pt) Score/Fall Risk Level 0 - 2 = Low Risk Oriented to surroundings. Abuse screen: Denies threats or abuse. Denies injuries from another. Nutritional screening: No deficits noted. Tuberculosis screening: No symptoms or risk factors identified. Assessment: 08:02 General: Appears in no apparent distress. Behavior is appropriate for age. bp 09:02 Reassessment: DC ON HOLD FOR EMS TRANSPORT. [facility] INBOUND. Neuro: Level of bp Consciousness is awake, alert, obeys commands. Vital Signs: 07:59 BP 140 / 80; Pulse 100; Resp 16; Temp 98.6; Pulse Ox 97% ; bp 09:32 BP 132 / 78; Pulse 91; Resp 18; Temp 98.5; Pulse Ox 98% on R/A; ph ED Course: 07:59 Patient arrived in ED. bp 08:00 Triage completed. bp 08:00 Arm band placed on. bp 08:01 Patient has correct armband on for positive identification. bp 08:02 Quoc Demarco, DIEGO is Primary Nurse. bp 08:08 Scotty Guzman DO is Attending Physician. ms3 08:33 Etienne Torres MD is Referral Physician. ms3 09:03 Provided Education on: NA. bp 09:03 No provider procedures requiring assistance completed. Patient did not have IV access bp during this emergency room visit. Administered Medications: 09:04 Drug: Ketorolac IM 15 mg IM once Route: IM; Site: left deltoid; bp 09:32 Follow up: Response: No adverse reaction ph 09:04 Drug: Acetaminophen-Codeine PO (300 mg-30 mg) 1 tablet PO once; RASS on ADMIN: Combtv4, bp Very Agttd3, Agttd2, Rstlss1, AlertClm0, Drwsy-1, Lt Sdtn-2, Mod Sdtn-3, Dp Sdtn-4, UnArsble-5 Route: PO; 09:32 Follow up: Response: No adverse reaction ph Medication: 09:32 VIS not applicable for this client. ph Outcome: 08:34 Discharge ordered by . ms3 09:03 Discharged to home ambulatory, bp 09:03 Condition: stable 09:03 Discharge instructions given to patient, Instructed on discharge instructions, follow up and referral plans. Demonstrated understanding of instructions, follow-up care, 09:32 Patient left the ED. ph Signatures: Prachi Nguyen RN RN ph Quoc Demarco, RN RN Scotty Cabral, DO ms3
[2024-12-14] MEDS ORDERED: KETOROLAC 30 MG/ML INJ ONE (08:46)
[2024-12-14] MEDS ORDERED: CODEINE 30MG/APAP 300MG TAB ONE (08:46)
[2024-12-14 09:38] VITALS: BP 132/78; TEMP 98.5; O2SAT 98
== END 2024-12-14 09:32 | disposition home or self-care (01) ==
LOC: ER 07:58
DX: M54.50 Low back pain, unspecified (principal); M25.551 Pain in right hip
CPT/HCPCS: 96372; 99284

== ENCOUNTER 2024-12-14 22:10 | Emergency (ER) | payer OTHER ==
--- NOTE | 2024-12-14 22:15 | EDPHYS ---
Physician Documentation [facility] Name: Kiel Ngo Age: 74 yrs Sex: Male : 1950 Arrival Date: 12/14/2024 Time: 22:10 Bed 22 Private MD: ED Physician Benoit Weeks HPI: 12/14 23:05 This 74 yrs old Male presents to ER via EMS with complaints of Back Pain. kb 23:05 Pt is a 74 year old male who presents for chronic right hip and upper leg pain. States kb he normally takes Tylenol #3, but he has ran out. . Historical: - Allergies: 22:37 Demerol; bm8 22:37 metformin; bm8 - PMHx: 22:37 Atrial fibrillation; chronic back pain; Chronic right leg pain; lymphedema; neuropathy; bm8 - PSHx: 22:37 back sx; PANCREAS SX; R. Ankle SX; bm8 - Immunization history:: Adult Immunizations up to date. - Infectious Disease History:: Denies. - Social history:: Smoking status: unknown. ROS: 23:04 Constitutional: As per HPI kb Exam: 23:04 Constitutional: This is a well developed, well nourished patient who is awake, alert, kb and in no acute distress. Head/Face: Normocephalic, atraumatic. ENT: Moist Mucous membranes Cardiovascular: Regular rate Respiratory: Respirations even and unlabored. No increased work of breathing. Talking in full sentences Skin: Warm, dry with normal turgor. Normal color. 23:04 Musculoskeletal/extremity: Extremities: grossly normal except: noted in the right hip and lateral aspect of right thigh: pain, ROM: limited active range of motion due to pain, Circulation is intact in all extremities. Sensation intact. Vital Signs: 22:10 BP 128 / 78; Pulse 102; Resp 18; Temp 98.1; Pulse Ox 98% ; Weight 92.99 kg; Height 5 bm8 ft. 9 in. ; Pain 6/10; 22:10 Body Mass Index 30.27 (92.99 kg, 175.26 cm) bm8 22:10 Pain Scale: Adult bm8 [place] Coma Score: 22:39 Eye Response: spontaneous(4). Motor Response: obeys commands(6). Verbal Response: bm8 oriented(5). Total: 15. MDM: 22:14 Medical Screening Exam initiated kb 23:04 Differential diagnosis: fracture, arthritis, chronic pain. Data reviewed: vital signs, kb nurses notes. Test considered but Not performed: X-ray: xray considered but pt denies injury or trauma. States the pain is the same as he always has. Historians other than the Patient: EMS: [facility]. Counseling: I had a detailed discussion with the patient and/or guardian regarding the historical points, exam findings, and any diagnostic results supporting the discharge/admit diagnosis, the need for outpatient follow up, a family practitioner, to return to the emergency department if symptoms worsen or persist or if there are any questions or concerns that arise at home. Administered Medications: 22:22 Drug: Ketorolac IM 15 mg IM once Route: IM; Site: left deltoid; bm8 22:41 Follow up: Response: No adverse reaction bm8 22:22 Drug: Acetaminophen-Codeine PO (300 mg-30 mg) 1 tablet PO once; RASS on ADMIN: Combtv4, bm8 Very Agttd3, Agttd2, Rstlss1, AlertClm0, Drwsy-1, Lt Sdtn-2, Mod Sdtn-3, Dp Sdtn-4, UnArsble-5 Route: PO; 22:41 Follow up: Response: No adverse reaction bm8 Disposition Summary: 12/14/24 22:15 Discharge Ordered Notes: Location: Home kb Condition: Stable kb Diagnosis - Pain in right hip - chronic kb Followup: kb - With: Emergency Department - When: As needed - Reason: Worsening of condition Followup: kb - With: Private Physician - When: 2 - 3 days - Reason: Recheck today's complaints, Continuance of care, Re-evaluation by your physician Discharge Instructions: - Discharge Summary Sheet kb - Chronic Pain, Adult kb Forms: - Medication Reconciliation Form kb - Antibiotic Education kb - Prescription Opioid Use kb - Patient Portal Instructions kb - Leadership Thank You Letter kb Addendum: 12/15/2024 22:49 Co-signature as Attending Physician, Benoit Weeks MD I agree with the assessment s p4 and plan of care. I reviewed the patient's care provided by the Advanced Practice Provider and agree with the diagnosis and treatment plan. Signatures: Vera Lee, CAN OPERATOR-C CAN OPERATOR-Ckb Benoit Weeks MD MD sp4 Onel Carrasco, RN RN bm8
[2024-12-14] MEDS ORDERED: KETOROLAC 30 MG/ML INJ ONE (22:21)
[2024-12-14] MEDS ORDERED: CODEINE 30MG/APAP 300MG TAB ONE (22:22)
--- NOTE | 2024-12-14 22:40 | ER ---
Nurse's Notes [facility] Name: Kiel Ngo Age: 74 yrs Sex: Male : 1950 Arrival Date: 12/14/2024 Time: 22:10 Bed 22 Private MD: Diagnosis: Pain in right hip-chronic Presentation: 12/14 22:10 Chief complaint: Patient states: My back hurts again. bm8 22:10 Coronavirus screen: At this time, the client does not indicate any symptoms associated bm8 with coronavirus-19. Ebola Screen: Patient negative for fever greater than or equal to 101.5 degrees Fahrenheit, and additional compatible Ebola Virus Disease symptoms Patient denies exposure to infectious person. Patient denies travel to an Ebola-affected area in the 21 days before illness onset. No symptoms or risks identified at this time. Initial Sepsis Screen: Does the patient meet any 2 criteria? No. Patient's initial sepsis screen is negative. Does the patient have a suspected source of infection? No. Patient's initial sepsis screen is negative. Risk Assessment: Do you want to hurt yourself or someone else? Patient reports no desire to harm self or others. Onset of symptoms was December 14, 2024 at 18:00. 22:10 Method Of Arrival: EMS: [facility] bm8 22:10 Acuity: JOZEF 4 bm8 Triage Assessment: 22:37 General: Appears in no apparent distress. comfortable, Behavior is calm, cooperative, bm8 appropriate for age. Pain: Complains of pain in back. Cardiovascular: Denies chest pain, Capillary refill < 3 seconds in bilateral fingers Patient's skin is warm and dry. Respiratory: Airway is patent Respiratory effort is even, unlabored, Respiratory pattern is regular, symmetrical. Musculoskeletal: Circulation, motion, and sensation intact. Reports pain in back. Historical: - Allergies: 22:37 Demerol; bm8 22:37 metformin; bm8 - PMHx: 22:37 Atrial fibrillation; chronic back pain; Chronic right leg pain; lymphedema; neuropathy; bm8 - PSHx: 22:37 back sx; PANCREAS SX; R. Ankle SX; bm8 - Immunization history:: Adult Immunizations up to date. - Infectious Disease History:: Denies. - Social history:: Smoking status: unknown. Screenin:39 [facility] ED Fall Risk Assessment (Adult) History of falling in the last 3 months, bm8 including since admission Yes- fall prone (multiple falls) (3 pts) Confusion or Disorientation No (0 pts) Intoxicated or Sedated No (0 pts) Impaired Gait Yes (1 pt) Mobility Assist Device Used Yes (1 pt) Altered Elimination No (0 pt) Score/Fall Risk Level 3 or more points = High Risk Oriented to surroundings, Maintained a safe environment, Educated pt \T\ family on fall prevention, incl call for assistance when getting out of bed, Assessed \T\ reinforced patient's understanding of fall precautions, Hourly rounding (assess needs \T\ fall precautionary measures) done, Used ambulatory aids as needed (educated on \T\ assisted with). Abuse screen: Denies threats or abuse. Nutritional screening: No deficits noted. Tuberculosis screening: No symptoms or risk factors identified. Assessment: 22:39 Reassessment: see triage assessment. bm8 Vital Signs: 22:10 BP 128 / 78; Pulse 102; Resp 18; Temp 98.1; Pulse Ox 98% ; Weight 92.99 kg; Height 5 bm8 ft. 9 in. ; Pain 6/10; 22:10 Body Mass Index 30.27 (92.99 kg, 175.26 cm) bm8 22:10 Pain Scale: Adult bm8 Gayathri Coma Score: 22:39 Eye Response: spontaneous(4). Motor Response: obeys commands(6). Verbal Response: bm8 oriented(5). Total: 15. ED Course: 22:11 Patient arrived in ED. jj6 22:14 [facility] kb 22:14 Benoit Weeks MD is Attending Physician. kb 22:37 Triage completed. bm8 22:37 Arm band placed on right wrist. bm8 22:39 Patient has correct armband on for positive identification. Provided Education on: post bm8 er care. 22:39 No provider procedures requiring assistance completed. Patient did not have IV access bm8 during this emergency room visit. Administered Medications: 22:22 Drug: Ketorolac IM 15 mg IM once Route: IM; Site: left deltoid; bm8 22:41 Follow up: Response: No adverse reaction bm8 22:22 Drug: Acetaminophen-Codeine PO (300 mg-30 mg) 1 tablet PO once; RASS on ADMIN: Combtv4, bm8 Very Agttd3, Agttd2, Rstlss1, AlertClm0, Drwsy-1, Lt Sdtn-2, Mod Sdtn-3, Dp Sdtn-4, UnArsble-5 Route: PO; 22:41 Follow up: Response: No adverse reaction bm8 Medication: 22:39 VIS not applicable for this client. bm8 Outcome: 22:15 Discharge ordered by . barbara 22:39 Discharged to home via ambulance, bm8 22:39 Condition: stable 22:39 Discharge instructions given to patient, Instructed on discharge instructions, follow up and referral plans. Demonstrated understanding of instructions, follow-up care, 22:40 Patient left the ED. bm8 Signatures: Vera Lee FNP-C KYLEE-Roxane Sheriff jj6 Onel Carrasco, RN RN bm8
[2024-12-14 23:07] VITALS: BP 128/78; TEMP 98.1; O2SAT 98
== END 2024-12-14 22:40 | disposition home or self-care (01) ==
LOC: ER 22:10
DX: M25.551 Pain in right hip (principal)
CPT/HCPCS: 96372; 99284

== ENCOUNTER 2025-01-04 00:16 | Emergency (ER) | payer OTHER ==
--- NOTE | 2025-01-04 00:55 | ER ---
Nurse's Notes [facility] Name: Kiel Ngo Age: 74 yrs Sex: Male : 1950 Arrival Date: 01/04/2025 Time: 00:16 Bed 8 Private MD: Diagnosis: Low back pain;Chronic bilateral back pain, acute exacerbation of chronic pain Presentation: 01/04 00:18 Chief complaint: EMS states: patient c/o lower back pain rating 10/10. Coronavirus al5 screen: At this time, the client does not indicate any symptoms associated with coronavirus-19. Ebola Screen: No symptoms or risks identified at this time. Initial Sepsis Screen: Does the patient meet any 2 criteria? No. Patient's initial sepsis screen is negative. Does the patient have a suspected source of infection? No. Patient's initial sepsis screen is negative. Risk Assessment: Do you want to hurt yourself or someone else? Patient reports no desire to harm self or others. Onset of symptoms was January 04, 2025. 00:18 Method Of Arrival: EMS: [facility] al5 00:18 Acuity: JOZEF 3 al5 Triage Assessment: 00:21 General: Appears in no apparent distress. uncomfortable, Behavior is calm, cooperative. al5 Pain: Complains of pain in lumbar area, left low back and right low back Pain currently is 10 out of 10 on a pain scale. EENT: No signs and/or symptoms were reported regarding the EENT system. Neuro: Level of Consciousness is awake, alert, obeys commands, Oriented to person, place, time, situation. Cardiovascular: Capillary refill < 3 seconds Patient's skin is warm and dry. Respiratory: Airway is patent Respiratory effort is even, unlabored, Respiratory pattern is regular, symmetrical. GI: No signs and/or symptoms were reported involving the gastrointestinal system. : No signs and/or symptoms were reported regarding the genitourinary system. Derm: reddening to lower legs with raised bumps and healing wounds to the area. Musculoskeletal: Swelling present in bilateral lower ankles Reports pain in lumbar area, left low back and right low back Pain is 10 out of 10 on a pain scale. Historical: - Allergies: 00:19 Demerol; al5 00:19 metformin; al5 - Home Meds: 00:19 Alprazolam Oral [Active]; Ambien Oral [Active]; Benadryl Oral [Active]; Effexor Oral al5 [Active]; humulin [Active]; Hydroxyzine Oral [Active]; Keppra Oral [Active]; Klonopin 2 mg Oral TbDi 2 tabs 4 times a day [Active]; Metoprolol Tartrate Oral [Active]; tizanidine oral [Active]; venlafaxine oral [Active]; - PMHx: 00:19 Atrial fibrillation; chronic back pain; Chronic right leg pain; lymphedema; neuropathy; al5 - PSHx: 00:19 back sx; PANCREAS SX; R. Ankle SX; al5 - Immunization history:: Adult Immunizations up to date. - Infectious Disease History:: Denies. - Social history:: Smoking status: Patient denies any tobacco usage or history of. - Family history:: not pertinent. Screenin:24 [facility] ED Fall Risk Assessment (Adult) History of falling in the last 3 months, al5 including since admission No falls in past 3 months (0 pts) Confusion or Disorientation No (0 pts) Intoxicated or Sedated No (0 pts) Impaired Gait Yes (1 pt) Mobility Assist Device Used Yes (1 pt) Altered Elimination Yes (1 pt) Score/Fall Risk Level 3 or more points = High Risk Oriented to surroundings, Maintained a safe environment, Hourly rounding (assess needs \T\ fall precautionary measures) done. Abuse screen: Denies threats or abuse. Denies injuries from another. Nutritional screening: No deficits noted. Tuberculosis screening: No symptoms or risk factors identified. Assessment: 00:24 Reassessment: see triage assessment. al5 Vital Signs: 00:18 BP 162 / 90; Pulse 89; Resp 18; Temp 98.7; Pulse Ox 99% on R/A; Weight 83.91 kg; Height al5 5 ft. 11 in. ; Pain 10/10; 01:48 BP 153 / 85; Pulse 84; Resp 16; Temp 98.4; Pulse Ox 98% on R/A; dd2 00:18 Body Mass Index 25.80 (83.91 kg, 180.34 cm) al5 00:18 Pain Scale: Adult al5 [place] Coma Score: 06:55 Eye Response: spontaneous(4). Motor Response: obeys commands(6). Verbal Response: sp4 oriented(5). Total: 15. ED Course: 00:18 Patient arrived in ED. dd2 00:19 Triage completed. al5 00:24 Arm band placed on right wrist. Patient placed in the treatment room, in view of staff al5 members, on pulse oximetry. 00:26 Patient has correct armband on for positive identification. Bed in low position. Call al5 light in reach. Side rails up X2. Provided Education on: plan of care. 00:26 No provider procedures requiring assistance completed. al5 00:40 Benoit Weeks MD is Attending Physician. sp4 01:49 Patient did not have IV access during this emergency room visit. dd2 Administered Medications: 01:16 Drug: Ketorolac IM 30 mg IM once Route: IM; Site: right deltoid; dd2 01:46 Follow up: Response: No adverse reaction dd2 01:16 Drug: Methocarbamol PO 1500 mg PO once Route: PO; dd2 01:46 Follow up: Response: No adverse reaction dd2 Medication: 00:24 VIS not applicable for this client. al5 Outcome: 00:55 Discharge ordered by . sp4 01:50 Patient left the ED. dd2 Signatures: Benoit Weeks MD MD sp4 Katharine Gaspar RN RN al5 DIOR BAL RN RN dd2
--- NOTE | 2025-01-04 00:55 | EDPHYS ---
Physician Documentation [facility] Name: Kiel Ngo Age: 74 yrs Sex: Male : 1950 Arrival Date: 01/04/2025 Time: 00:16 Bed 8 Private MD: ED Physician Benoit Weeks HPI: 01/04 00:40 This 74 yrs old Male presents to ER via EMS with complaints of Back Pain. sp4 06:55 Patient with history of chronic back pain presents with worsening lower back pain. sp4 Patient states today pain is worse than usual. Patient follows up with Dr. Betzy Rodriguez for his pain management needs. Patient states he has a Dilaudid pump which has not been refilled in a while. [facility] aware reveals prescription for Tylenol No. 4 on 12/15/2024 for 120 tablets total, . Historical: - Allergies: 00:19 Demerol; al5 00:19 metformin; al5 - Home Meds: 00:19 Alprazolam Oral [Active]; Ambien Oral [Active]; Benadryl Oral [Active]; Effexor Oral al5 [Active]; humulin [Active]; Hydroxyzine Oral [Active]; Keppra Oral [Active]; Klonopin 2 mg Oral TbDi 2 tabs 4 times a day [Active]; Metoprolol Tartrate Oral [Active]; tizanidine oral [Active]; venlafaxine oral [Active]; - PMHx: 00:19 Atrial fibrillation; chronic back pain; Chronic right leg pain; lymphedema; neuropathy; al5 - PSHx: 00:19 back sx; PANCREAS SX; R. Ankle SX; al5 - Immunization history:: Adult Immunizations up to date. - Infectious Disease History:: Denies. - Social history:: Smoking status: Patient denies any tobacco usage or history of. - Family history:: not pertinent. ROS: 06:55 Constitutional: Negative for fever, chills, and weight loss, positive for worsening sp4 lower back pain, positive for chronic immobility 06:55 All other systems are negative, Exam: 06:55 Constitutional: This is a well developed, well nourished patient who is awake, alert, sp4 physically debilitated male signs of prolonged immobility, incontinent of bowel and bladder Head/Face: Normocephalic, atraumatic. Eyes: Pupils equal round and reactive to light, extra-ocular motions intact. Lids and lashes normal. Conjunctiva and sclera are not injected. Cornea within normal limits. Periorbital areas with no swelling, redness, or edema. ENT: Nares patent. No nasal discharge, no septal abnormalities noted. Tympanic membranes are normal and external auditory canals are clear. Oropharynx with no redness, swelling, or masses, exudates, or evidence of obstruction, uvula midline. Mucous membranes moist. Neck: Trachea midline, no thyromegaly or masses palpated, and no cervical lymphadenopathy. Supple, full range of motion without nuchal rigidity, or vertebral point tenderness. Chest/axilla: Normal chest wall appearance and motion. Nontender with no deformity. No lesions are appreciated. Cardiovascular: Regular rate and rhythm with a normal S1 and S2. No gallops, murmurs, or rubs. Normal PMI, no JVD. No pulse deficits. Respiratory: Lungs have equal breath sounds bilaterally, clear to auscultation and percussion. No rales, rhonchi or wheezes noted. No increased work of breathing, no retractions or nasal flaring. Abdomen/GI: Soft, with normal bowel sounds. No distension or tympany. No guarding or rebound. No evidence of tenderness throughout. Back: No spinal tenderness. No costovertebral tenderness. Male : Normal genitalia with no discharge or lesions. Incontinent of bowel and bladder Skin: Warm, dry with normal turgor. Normal color with no rashes, no lesions, and no evidence of cellulitis. MS/ Extremity: Pulses equal, no cyanosis, bilateral lower extremity atrophy from prolonged immobility, bilateral venous stasis skin changes, moderate to severe physical debility complications of immobility Neuro: Awake and alert, GCS 15, oriented to person, place, time, and situation. Cranial nerves II-XII grossly intact. No new neurologic deficits reported. Psych: Awake, alert, with orientation to person, place and time. Behavior, mood, and affect are within normal limits Vital Signs: 00:18 BP 162 / 90; Pulse 89; Resp 18; Temp 98.7; Pulse Ox 99% on R/A; Weight 83.91 kg; Height al5 5 ft. 11 in. ; Pain 10/10; 01:48 BP 153 / 85; Pulse 84; Resp 16; Temp 98.4; Pulse Ox 98% on R/A; dd2 00:18 Body Mass Index 25.80 (83.91 kg, 180.34 cm) al5 00:18 Pain Scale: Adult al5 Gayathri Coma Score: 06:55 Eye Response: spontaneous(4). Motor Response: obeys commands(6). Verbal Response: sp4 oriented(5). Total: 15. MDM: 00:55 Medical Screening Exam initiated sp4 07:01 Differential diagnosis: arthritis, Fatigue Osteoporosis spinal injury. Data reviewed: sp4 vital signs, nurses notes, EMS record, old medical records. Consideration of Admission/Observation Escalation of care including admission/observation considered. ED course: Patient is on pain management plan with his primary care physician and he is prescribed 120 Tylenol No. 4 every months. Patient was informed that we not comfortable providing any opiates. But we will provide ketorolac injection and some Robaxin one-time dose.. Otherwise stable for discharge from ER.. Administered Medications: 01:16 Drug: Ketorolac IM 30 mg IM once Route: IM; Site: right deltoid; dd2 01:46 Follow up: Response: No adverse reaction dd2 01:16 Drug: Methocarbamol PO 1500 mg PO once Route: PO; dd2 01:46 Follow up: Response: No adverse reaction dd2 Disposition: 07:05 Chart complete. sp4 Disposition Summary: 01/04/25 00:55 Discharge Ordered Problem: new sp4 Symptoms: have improved sp4 Condition: Stable sp4 Diagnosis - Low back pain sp4 - Chronic bilateral back pain, acute exacerbation of chronic pain sp4 Followup: sp4 - With: Private Physician - When: 7 - 10 days - Reason: Recheck today's complaints Discharge Instructions: - Discharge Summary Sheet sp4 - Chronic Back Pain sp4 Forms: - Patient Portal Instructions sp4 Signatures: Benoit Weeks MD MD sp4 Katharine Gaspar RN RN al5 DIOR BAL RN RN dd2
[2025-01-04] MEDS ORDERED: methocarbamoL 750 MG TAB ONE (01:12)
[2025-01-04] MEDS ORDERED: KETOROLAC 30 MG/ML INJ ONE (01:12)
[2025-01-04 02:11] VITALS: BP 153/85; TEMP 98.4; O2SAT 98
== END 2025-01-04 01:50 | disposition home or self-care (01) ==
LOC: ER 00:16
DX: M54.50 Low back pain, unspecified (principal); G89.29 Other chronic pain
CPT/HCPCS: 96372; 99284

== ENCOUNTER 2025-01-05 05:58 | Emergency (ER) | payer OTHER ==
--- NOTE | 2025-01-05 06:22 | EDPHYS ---
Physician Documentation [facility] Name: Kiel Ngo Age: 74 yrs Sex: Male : 1950 Arrival Date: 01/05/2025 Time: 05:58 Bed 17 Private MD: ED Physician Benoit Weeks HPI: 01/05 06:18 This 74 yrs old Male presents to ER via Unassigned with complaints of Back sp4 Pain. 21:50 74-year-old male chronically immobilized man presents for worsening bilateral back sp4 pain.. Was here for the same complaint yesterday. EMS Provided Toradol injection 15 mg intramuscular with improvement of pain while in the route. . Historical: - Allergies: 06:20 Demerol; aa10 06:20 metformin; aa10 - Home Meds: 06:20 Alprazolam Oral [Active]; Ambien Oral [Active]; Benadryl Oral [Active]; Effexor Oral aa10 [Active]; humulin [Active]; Hydroxyzine Oral [Active]; Keppra Oral [Active]; Klonopin 2 mg Oral TbDi 2 tabs 4 times a day [Active]; Metoprolol Tartrate Oral [Active]; tizanidine oral [Active]; venlafaxine oral [Active]; - PMHx: 06:20 Atrial fibrillation; chronic back pain; Chronic right leg pain; lymphedema; neuropathy; aa10 - PSHx: 06:20 back sx; PANCREAS SX; R. Ankle SX; aa10 - Immunization history:: Adult Immunizations up to date. - Infectious Disease History:: Denies. - Social history:: Smoking status: unknown. - Family history:: not pertinent. ROS: 21:54 Constitutional: Negative for fever, chills, and weight loss, lower back pain positive sp4 bilateral leg pain 21:54 All other systems are negative, Exam: 21:54 Constitutional: Debilitated male in no distress. Signs of prolonged immobility. sp4 Lateral lower extremity venous stasis skin changes Head/Face: Normocephalic, atraumatic. Eyes: Pupils equal round and reactive to light, extra-ocular motions intact. Lids and lashes normal. Conjunctiva and sclera are not injected. Cornea within normal limits. Periorbital areas with no swelling, redness, or edema. ENT: Nares patent. No nasal discharge, no septal abnormalities noted. Tympanic membranes are normal and external auditory canals are clear. Oropharynx with no redness, swelling, or masses, exudates, or evidence of obstruction, uvula midline. Mucous membranes moist. Neck: Trachea midline, no thyromegaly or masses palpated, and no cervical lymphadenopathy. Supple, full range of motion without nuchal rigidity, or vertebral point tenderness. Chest/axilla: Normal chest wall appearance and motion. Nontender with no deformity. No lesions are appreciated. Cardiovascular: Regular rate and rhythm with a normal S1 and S2. No gallops, murmurs, or rubs. Normal PMI, no JVD. No pulse deficits. Respiratory: Lungs have equal breath sounds bilaterally, clear to auscultation and percussion. No rales, rhonchi or wheezes noted. No increased work of breathing, no retractions or nasal flaring. Abdomen/GI: Soft, with normal bowel sounds. No distension or tympany. No guarding or rebound. No evidence of tenderness throughout. Back: No spinal tenderness. No costovertebral tenderness. Has stage I bedsores Male : Normal genitalia with no discharge or lesions. Incontinent of bowel and bladder Skin: Warm, dry with normal turgor. Normal color with no rashes, no lesions, and no evidence of cellulitis. MS/ Extremity: Pulses equal, no cyanosis. Neurovascular intact. Full, normal range of motion. Neuro: Awake and alert, GCS 15, oriented to person, place, time, and situation. Advanced physical debility, diffuse muscular atrophy from chronic mobility. Vital Signs: 06:18 BP 160 / 80; Pulse 90; Resp 20; Temp 98; Pulse Ox 99% on R/A; MAP 100 mmHg; aa10 06:25 BP 158 / 80; Pulse 89; Resp 18; Temp 98; Pulse Ox 99% ; MAP 100 mmHg; aa10 07:37 BP 153 / 84; Pulse 89; Resp 18; Pulse Ox 99% on R/A; ld1 Gayathri Coma Score: 21:54 Eye Response: spontaneous(4). Motor Response: obeys commands(6). Verbal Response: sp4 oriented(5). Total: 15. MDM: 06:22 Medical Screening Exam initiated sp4 21:56 Differential diagnosis: chronic back pain, Fatigue Joint Injury Osteoporosis Scoliosis. sp4 Data reviewed: vital signs, nurses notes, EMS record, old medical records. ED course: Patient is on chronic pain management regimen, patient receives 120 tablets of Tylenol No. 4 every months from his private physician. At this time we do not feel safe administering any opiates. Patient was administered Tylenol and Robaxin while in ER. Stable for discharge home. . Administered Medications: 06:49 Drug: Methocarbamol PO 1500 mg PO once Route: PO; aa10 06:49 Drug: Acetaminophen PO 1000 mg PO once Route: PO; aa10 Disposition Summary: 01/05/25 06:22 Discharge Ordered Notes: Location: Home sp4 Problem: new sp4 Symptoms: have improved sp4 Condition: Stable sp4 Diagnosis - Chronic pain syndrome sp4 - Other chronic pain sp4 - Acute exacerbation of chronic pain sp4 Followup: sp4 - With: Private Physician - When: 7 - 10 days - Reason: Recheck today's complaints Discharge Instructions: - Discharge Summary Sheet sp4 - Chronic Back Pain sp4 Forms: - Patient Portal Instructions sp4 Signatures: Benoit Weeks MD MD sp4 Chloé Colby, RN RN aa10
--- NOTE | 2025-01-05 06:22 | ER ---
Nurse's Notes [facility] Name: Kiel Ngo Age: 74 yrs Sex: Male : 1950 Arrival Date: 01/05/2025 Time: 05:58 Bed 17 Private MD: Diagnosis: Chronic pain syndrome;Other chronic pain;Acute exacerbation of chronic pain Presentation: 01/05 06:18 Chief complaint: Patient states: back pain EMS states: patient called EMS on account of aa10 chronic back pain, which he rated 10/10 .he was given Toradol by EMS an pain came down to 7/10. Coronavirus screen: Vaccine status: Client denies travel out of the [place] in the last 14 days. At this time, the client does not indicate any symptoms associated with coronavirus-19. Ebola Screen: Patient negative for fever greater than or equal to 101.5 degrees Fahrenheit, and additional compatible Ebola Virus Disease symptoms Patient denies exposure to infectious person. Patient denies travel to an Ebola-affected area in the 21 days before illness onset. No symptoms or risks identified at this time. Initial Sepsis Screen: Does the patient meet any 2 criteria? Does the patient have a suspected source of infection? No. Patient's initial sepsis screen is negative. Risk Assessment: Do you want to hurt yourself or someone else? Patient reports no desire to harm self or others. Onset of symptoms was January 05, 2025. 06:18 Method Of Arrival: EMS: [facility] aa10 06:18 Acuity: JOZEF 3 aa10 Triage Assessment: 06:23 General: Appears in no apparent distress. comfortable, unkempt, well developed, aa10 Behavior is calm, cooperative, appropriate for age, quiet. Pain: Complains of pain in back Pain does not radiate. Pain currently is 6 out of 10 on a pain scale. Quality of pain is described as aching, Pain began gradually, Is continuous, Alleviated by medications, rest, Aggravated by increased activity, Noted to be quiet/stoic, resistant to movement. EENT: No deficits noted. Tympanic membrane clear on right ear and left ear. Neuro: No deficits noted. Level of Consciousness is awake, alert, obeys commands, Oriented to person, place, time, situation, Appropriate for age Funeral Service Apprentice are equal bilaterally Moves all extremities. Gait is steady, Speech is normal, Facial symmetry appears normal, Pupils are PERRLA, Intact. Cardiovascular: No deficits noted. Capillary refill < 3 seconds. Respiratory: No deficits noted. Airway is patent. Musculoskeletal: No deficits noted. Circulation, motion, and sensation intact. Capillary refill < 3 seconds. Historical: - Allergies: 06:20 Demerol; aa10 06:20 metformin; aa10 - Home Meds: 06:20 Alprazolam Oral [Active]; Ambien Oral [Active]; Benadryl Oral [Active]; Effexor Oral aa10 [Active]; humulin [Active]; Hydroxyzine Oral [Active]; Keppra Oral [Active]; Klonopin 2 mg Oral TbDi 2 tabs 4 times a day [Active]; Metoprolol Tartrate Oral [Active]; tizanidine oral [Active]; venlafaxine oral [Active]; - PMHx: 06:20 Atrial fibrillation; chronic back pain; Chronic right leg pain; lymphedema; neuropathy; aa10 - PSHx: 06:20 back sx; PANCREAS SX; R. Ankle SX; aa10 - Immunization history:: Adult Immunizations up to date. - Infectious Disease History:: Denies. - Social history:: Smoking status: unknown. - Family history:: not pertinent. Screenin:28 [facility] ED Fall Risk Assessment (Adult) History of falling in the last 3 months, aa10 including since admission No falls in past 3 months (0 pts) Confusion or Disorientation No (0 pts) Intoxicated or Sedated No (0 pts) Impaired Gait No (0 pts) Mobility Assist Device Used No (0 pt) Altered Elimination No (0 pt) Score/Fall Risk Level 0 - 2 = Low Risk Oriented to surroundings, Maintained a safe environment, Educated pt \T\ family on fall prevention, incl call for assistance when getting out of bed, Assessed \T\ reinforced patient's understanding of fall precautions, Provided non-skid footwear. Abuse screen: Denies threats or abuse. Denies injuries from another. Nutritional screening: No deficits noted. Tuberculosis screening: No symptoms or risk factors identified. Assessment: 06:27 Reassessment: see triage assessment. Neuro: No deficits noted. Level of Consciousness aa10 is awake, alert, obeys commands, Oriented to person, place, time, situation, Fun[employer] Service Apprentice are equal bilaterally Moves all extremities. 06:56 Reassessment: patient has been discharged, he is pending ambulance for transport back aa10 home. 07:37 Reassessment: Patient appears in no apparent distress at this time. No changes from ld1 previously documented assessment. Patient and/or family updated on plan of care and expected duration. Pain level reassessed. Patient is alert, oriented x 3, equal unlabored respirations, skin warm/dry/pink. Vital Signs: 06:18 BP 160 / 80; Pulse 90; Resp 20; Temp 98; Pulse Ox 99% on R/A; MAP 100 mmHg; aa10 06:25 BP 158 / 80; Pulse 89; Resp 18; Temp 98; Pulse Ox 99% ; MAP 100 mmHg; aa10 07:37 BP 153 / 84; Pulse 89; Resp 18; Pulse Ox 99% on R/A; ld1 Gayathri Coma Score: 21:54 Eye Response: spontaneous(4). Motor Response: obeys commands(6). Verbal Response: sp4 oriented(5). Total: 15. ED Course: 06:17 Patient arrived in ED. jj6 06:18 Benoit Weeks MD is Attending Physician. sp4 06:20 Triage completed. aa10 06:29 Patient has correct armband on for positive identification. Allergy band placed. Fall aa10 risk band placed. Placed in gown. Bed in low position. Call light in reach. Side rails up X2. Provided Education on: plan of care. 06:29 Arm band placed on right wrist. aa10 06:29 No provider procedures requiring assistance completed. Patient did not have IV access aa10 during this emergency room visit. Administered Medications: 06:49 Drug: Methocarbamol PO 1500 mg PO once Route: PO; aa10 06:49 Drug: Acetaminophen PO 1000 mg PO once Route: PO; aa10 Medication: 06:29 VIS not applicable for this client. aa10 Outcome: 06:22 Discharge ordered by . sp4 07:37 Patient left the ED. ll1 07:38 Discharged to home via ambulance, ld1 07:38 Condition: stable 07:38 Discharge instructions given to patient, Instructed on follow up and referral plans. Demonstrated understanding of instructions, follow-up care, Signatures: Tristian Mccormack RN RN 1 Danna Guzman RN RN ld1 Roxane Chappell jj6 Benoit Weeks MD MD sp4 Chloé Colby, DIEGO RN aa10
[2025-01-05] MEDS ORDERED: ACETAMINOPHEN 500 MG TAB ONE (06:48)
[2025-01-05] MEDS ORDERED: methocarbamoL 500 MG TAB ONE (06:49)
[2025-01-05 07:43] VITALS: TEMP 98; O2SAT 99
[2025-01-05 07:44] VITALS: BP 158/80
== END 2025-01-05 07:37 | disposition home or self-care (01) ==
LOC: ER 05:58
DX: G89.4 Chronic pain syndrome (principal); G89.29 Other chronic pain
CPT/HCPCS: 99283

== ENCOUNTER 2025-01-07 21:14 | Emergency (ER) | payer OTHER ==
--- NOTE | 2025-01-07 21:32 | ER ---
Nurse's Notes [facility] Name: Kiel Ngo Age: 74 yrs Sex: Male : 1950 Arrival Date: 01/07/2025 Time: 21:14 Bed 13 Private MD: Diagnosis: Low back pain;Chronic pain, not elsewhere classified Presentation: 01/07 21:17 Chief complaint: EMS states: CALLED TO PATIENT'S HOME FOR LOW BACK PAIN. PATIENT HAS A cm10 HISTORY OF BACK PAIN AND HAS BEEN OUT OF MEDS FOR 1 MONTH. Coronavirus screen: Client denies travel out of the [place] in the last 14 days. Ebola Screen: No symptoms or risks identified at this time. Initial Sepsis Screen: Does the patient meet any 2 criteria? No. Patient's initial sepsis screen is negative. Does the patient have a suspected source of infection? No. Patient's initial sepsis screen is negative. Risk Assessment: Do you want to hurt yourself or someone else? Patient reports no desire to harm self or others. Onset of symptoms was January 07, 2025. 21:17 Method Of Arrival: EMS: [facility] cm10 21:17 Acuity: JOZEF 3 cm10 Triage Assessment: 21:17 General: Appears uncomfortable, Behavior is calm, cooperative. Pain: Complains of pain cm10 in back Pain currently is 8 out of 10 on a pain scale. Neuro: No deficits noted. Level of Consciousness is awake, alert, obeys commands, Oriented to person, place, time, situation, Appropriate for age. Respiratory: No deficits noted. Airway is patent Respiratory effort is even, unlabored, Respiratory pattern is regular, symmetrical. Musculoskeletal: Reports pain in back. Historical: - Allergies: 21:19 Demerol; cm10 21:19 metformin; cm10 - PMHx: 21:19 Atrial fibrillation; chronic back pain; Chronic right leg pain; lymphedema; neuropathy; cm10 - PSHx: 21:19 back sx; PANCREAS SX; R. Ankle SX; cm10 - Immunization history:: Adult Immunizations up to date. - Infectious Disease History:: Denies. - Social history:: Smoking status: unknown. - Family history:: not pertinent. Screenin:00 [facility] ED Fall Risk Assessment (Adult) History of falling in the last 3 months, cm10 including since admission No falls in past 3 months (0 pts) Confusion or Disorientation No (0 pts) Intoxicated or Sedated No (0 pts) Impaired Gait Yes (1 pt) Mobility Assist Device Used Yes (1 pt) Altered Elimination Yes (1 pt) Score/Fall Risk Level 3 or more points = High Risk Oriented to surroundings, Maintained a safe environment, Hourly rounding (assess needs \T\ fall precautionary measures) done. Abuse screen: Denies threats or abuse. Denies injuries from another. Nutritional screening: No deficits noted. Tuberculosis screening: No symptoms or risk factors identified. Assessment: 22:19 Reassessment: Patient appears in no apparent distress at this time. Patient and/or cm10 family updated on plan of care and expected duration. Pain level reassessed. Vital Signs: 21:28 BP 125 / 69 LA (/lg); Pulse 98; Resp 16 S; Temp 98.2(O); Pulse Ox 100% on R/A; Weight sa1 83.91 kg (R); Height 5 ft. 11 in. (R); 21:45 BP 131 / 74; Pulse 93; Resp 15; Pulse Ox 100% ; cm10 21:28 Body Mass Index 25.80 (83.91 kg, 180.34 cm) sa1 ED Course: 21:17 Patient arrived in ED. lg3 21:17 Jasmine Suarez, RN is Primary Nurse. cm10 21:18 Stu Banerjee MD is Attending Physician. [facility] 21:18 Triage completed. cm10 21:19 Arm band placed on right wrist. Patient placed in an exam room, on a stretcher. cm10 22:00 Patient has correct armband on for positive identification. Placed in gown. Bed in low cm10 position. Provided Education on: FOLLOW-UP INSTRUCTIONS. 22:01 No provider procedures requiring assistance completed. Patient did not have IV access cm10 during this emergency room visit. Administered Medications: 21:54 Drug: HYDROmorphone IM 2 mg IM once Route: IM; Site: left vastus lateralis; cm10 22:20 Follow up: Response: No adverse reaction cm10 21:54 Drug: Promethazine IM 25 mg IM once Route: IM; Site: right vastus lateralis; cm10 22:19 Follow up: Response: No adverse reaction cm10 21:54 Drug: Diazepam PO 10 mg PO once Route: PO; cm10 22:19 Follow up: Response: No adverse reaction cm10 Medication: 22:00 VIS not applicable for this client. 10 Outcome: 21:31 Discharge ordered by . chetan 22:19 Discharged to home via ambulance, Rachel 22:19 Condition: good 22:19 Discharge instructions given to patient, Instructed on discharge instructions, follow up and referral plans. medication usage, Demonstrated understanding of instructions, follow-up care, medications, Prescriptions given X 2, 22:20 Patient left the ED. cm10 Signatures: Stu Banerjee MD MD cha Able, Lacie, RN RN lg3 Jasmine Suarez RN RN cm10 Sultan valdemar Bruno
--- NOTE | 2025-01-07 21:32 | EDPHYS ---
Physician Documentation [facility] Name: Kiel Ngo Age: 74 yrs Sex: Male : 1950 Arrival Date: 01/07/2025 Time: 21:14 Bed 13 Private MD: LAURIE Physician Stu Banerjee HPI: 01/07 21:27 This 74 yrs old Male presents to ER via EMS with complaints of Back Pain. chetan 21:27 The patient presents with pain that is chronic, with no known mechanism of injury. The chetan symptoms are located in the low back. Onset: The symptoms/episode began/occurred 1 week(s) ago. The pain does not radiate. Associated signs and symptoms: The patient has no apparent associated signs or symptoms. Modifying factors: The patient symptoms are alleviated by nothing, the patient symptoms are aggravated by movement. The patient has experienced similar episodes in the past, multiple times. Historical: - Allergies: 21:19 Demerol; cm10 21:19 metformin; cm10 - PMHx: 21:19 Atrial fibrillation; chronic back pain; Chronic right leg pain; lymphedema; neuropathy; cm10 - PSHx: 21:19 back sx; PANCREAS SX; R. Ankle SX; cm10 - Immunization history:: Adult Immunizations up to date. - Infectious Disease History:: Denies. - Social history:: Smoking status: unknown. - Family history:: not pertinent. ROS: 21:27 Constitutional: Negative for fever, chills, and weight loss, Eyes: Negative for injury, chetan pain, redness, and discharge, ENT: Negative for injury, pain, and discharge, Neck: Negative for injury, pain, and swelling, Cardiovascular: Negative for chest pain, palpitations, and edema, Respiratory: Negative for shortness of breath, cough, wheezing, and pleuritic chest pain, Abdomen/GI: Negative for abdominal pain, nausea, vomiting, diarrhea, and constipation, : Negative for injury, bleeding, discharge, and swelling, MS/Extremity: Negative for injury and deformity, Skin: Negative for injury, rash, and discoloration, Neuro: Negative for headache, weakness, numbness, tingling, and seizure, Psych: Negative for depression, anxiety, suicide ideation, homicidal ideation, and hallucinations, Allergy/Immunology: Negative for hives, rash, and allergies, Endocrine: Negative for neck swelling, polydipsia, polyuria, polyphagia, and marked weight changes, Hematologic/Lymphatic: Negative for swollen nodes, abnormal bleeding, and unusual bruising, 21:27 Back: Positive for decreased range of motion, pain with movement, Exam: 21:27 Constitutional: This is a well developed, well nourished patient who is awake, alert, chetan and in no acute distress. Head/Face: Normocephalic, atraumatic. Eyes: Pupils equal round and reactive to light, extra-ocular motions intact. Lids and lashes normal. Conjunctiva and sclera are non-icteric and not injected. Cornea within normal limits. Periorbital areas with no swelling, redness, or edema. ENT: Nares patent. No nasal discharge, no septal abnormalities noted. Tympanic membranes are normal and external auditory canals are clear. Oropharynx with no redness, swelling, or masses, exudates, or evidence of obstruction, uvula midline. Mucous membranes moist. Neck: Trachea midline, no thyromegaly or masses palpated, and no cervical lymphadenopathy. Supple, full range of motion without nuchal rigidity, or vertebral point tenderness. No Meningismus. Chest/axilla: Normal chest wall appearance and motion. Nontender with no deformity. No lesions are appreciated. Cardiovascular: Regular rate and rhythm with a normal S1 and S2. No gallops, murmurs, or rubs. Normal PMI, no JVD. No pulse deficits. Respiratory: Lungs have equal breath sounds bilaterally, clear to auscultation and percussion. No rales, rhonchi or wheezes noted. No increased work of breathing, no retractions or nasal flaring. Abdomen/GI: Soft, non-tender, with normal bowel sounds. No distension or tympany. No guarding or rebound. No evidence of tenderness throughout. Male : Normal genitalia with no discharge or lesions. Skin: Warm, dry with normal turgor. Normal color with no rashes, no lesions, and no evidence of cellulitis. MS/ Extremity: Pulses equal, no cyanosis. Neurovascular intact. Full, normal range of motion., bilateral aka Neuro: Awake and alert, GCS 15, oriented to person, place, time, and situation. Cranial nerves II-XII grossly intact. Motor strength 5/5 in all extremities. Sensory grossly intact. Cerebellar exam normal. Normal gait. Psych: Awake, alert, with orientation to person, place and time. Behavior, mood, and affect are within normal limits. 21:27 Back: pain, that is moderate, ROM is painful, normal spinal alignment noted, CVA tenderness, is absent, muscle spasm, is appreciated in the left low back, left mid back, right mid back and right low back, Vital Signs: 21:28 BP 125 / 69 LA (/lg); Pulse 98; Resp 16 S; Temp 98.2(O); Pulse Ox 100% on R/A; Weight sa1 83.91 kg (R); Height 5 ft. 11 in. (R); 21:45 BP 131 / 74; Pulse 93; Resp 15; Pulse Ox 100% ; cm10 21:28 Body Mass Index 25.80 (83.91 kg, 180.34 cm) sa1 MDM: 21:18 Medical Screening Exam initiated chetan 21:29 Differential diagnosis: Fatigue Obesity. Data reviewed: vital signs, nurses notes. chetan Consideration of Admission/Observation Escalation of care including admission/observation considered. I considered the following discharge prescriptions or medication management in the emergency department Medications were administered in the Emergency Department. See MAR. Test considered but Not performed: Labs: no cbc , no comp met. Administered Medications: 21:54 Drug: HYDROmorphone IM 2 mg IM once Route: IM; Site: left vastus lateralis; cm10 22:20 Follow up: Response: No adverse reaction cm10 21:54 Drug: Promethazine IM 25 mg IM once Route: IM; Site: right vastus lateralis; cm10 22:19 Follow up: Response: No adverse reaction cm10 21:54 Drug: Diazepam PO 10 mg PO once Route: PO; cm10 22:19 Follow up: Response: No adverse reaction cm10 Disposition Summary: 01/07/25 21:31 Discharge Ordered Notes: Location: Home chetan Problem: new chetan Symptoms: have improved chetan Condition: Stable chetan Diagnosis - Low back pain chetan - Chronic pain, not elsewhere classified chetan Followup: chetan - With: Private Physician - When: 2 - 3 days - Reason: Recheck today's complaints, Continuance of care, Re-evaluation by your physician Discharge Instructions: - Discharge Summary Sheet chetan - Acute Back Pain, Adult chetan - Chronic Back Pain chetan - Musculoskeletal Pain chetan Forms: - Medication Reconciliation Form chetan - Antibiotic Education chetan - Prescription Opioid Use chetan - Patient Portal Instructions chetan - Leadership Thank You Letter [facility] Prescriptions: - Motrin IB 200 mg Oral tablet - take 1 tablet ORAL route every 6 hours As needed as needed with food; 30 chetan tablet; Refills: 0, Product Selection Permitted - methocarbamol 750 mg Oral tablet - take 1 tablet ORAL route 4 times per day; 28 tablet; Refills: 0, Product [facility] Selection Permitted Signatures: Stu Banerjee MD MD cha Martinez, Clarissa RN RN cm10
[2025-01-07] MEDS ORDERED: PROMETHAZINE INJ 25 MG/ML AMP ONE ×2 (21:45→21:48)
[2025-01-07] MEDS ORDERED: DIAZEPAM 5 MG TABLET ONE (21:45)
[2025-01-07] MEDS ORDERED: HYDROMORPHONE HCL 2 MG/ML inj ONE (21:45)
== END 2025-01-07 22:20 | disposition home or self-care (01) ==
LOC: ER 21:14
DX: G89.29 Other chronic pain (principal)
CPT/HCPCS: 96372; 99284; J2550; J1171

== ENCOUNTER 2025-01-09 02:27 | Emergency (ER) | payer OTHER ==
--- NOTE | 2025-01-09 02:32 | ER ---
Nurse's Notes [facility] Name: Kiel Ngo Age: 74 yrs Sex: Male : 1950 Arrival Date: 01/09/2025 Time: 02:27 Bed 21 Private MD: Diagnosis: Other chronic pain Presentation: 01/09 02:29 Chief complaint: Patient states: back pain. Coronavirus screen: Client denies travel lg3 out of the [place] in the last 14 days. At this time, the client does not indicate any symptoms associated with coronavirus-19. Ebola Screen: No symptoms or risks identified at this time. Initial Sepsis Screen: Does the patient meet any 2 criteria? No. Patient's initial sepsis screen is negative. Does the patient have a suspected source of infection? No. Patient's initial sepsis screen is negative. Risk Assessment: Do you want to hurt yourself or someone else? Patient reports no desire to harm self or others. Onset of symptoms is unknown. 02:29 Method Of Arrival: EMS: [facility] lg3 02:29 Acuity: JOZEF 5 lg3 Triage Assessment: 02:30 General: Appears in no apparent distress. comfortable, Behavior is calm, cooperative. lg3 Pain: Complains of pain in back. EENT: No deficits noted. No signs and/or symptoms were reported regarding the EENT system. Neuro: No deficits noted. Villalobos Agitation-Sedation Scale (RASS): 0 - Alert and Calm Level of Consciousness is awake, alert, obeys commands, Oriented to person, place, time, situation. Cardiovascular: No deficits noted. Denies chest pain, shortness of breath, Capillary refill < 3 seconds Clubbing of nail beds is absent JVD is absent Patient's skin is warm and dry. Respiratory: No deficits noted. Airway is patent Respiratory effort is even, unlabored, Respiratory pattern is regular, symmetrical. GI: No deficits noted. No signs and/or symptoms were reported involving the gastrointestinal system. : No signs and/or symptoms were reported regarding the genitourinary system. Derm: No deficits noted. No signs and/or symptoms reported regarding the dermatologic system. Skin is intact, is healthy with good turgor, Skin is dry, Skin is normal, Skin temperature is warm. Musculoskeletal: Circulation, motion, and sensation intact. Range of motion: intact in all extremities, Reports pain in back. Historical: - Allergies: 02:30 Demerol; lg3 02:30 metformin; lg3 - PMHx: 02:30 Atrial fibrillation; chronic back pain; Chronic right leg pain; lymphedema; neuropathy; lg3 - PSHx: 02:30 back sx; PANCREAS SX; R. Ankle SX; lg3 - Immunization history:: Adult Immunizations up to date. - Infectious Disease History:: Denies. - Social history:: Smoking status: Patient denies any tobacco usage or history of. Patient/guardian denies using alcohol, street drugs. Screenin:32 [facility] ED Fall Risk Assessment (Adult) History of falling in the last 3 months, lg3 including since admission No falls in past 3 months (0 pts) Confusion or Disorientation No (0 pts) Intoxicated or Sedated No (0 pts) Impaired Gait Yes (1 pt) Mobility Assist Device Used Yes (1 pt) Altered Elimination No (0 pt) Score/Fall Risk Level 0 - 2 = Low Risk Oriented to surroundings, Maintained a safe environment, Educated pt \T\ family on fall prevention, incl call for assistance when getting out of bed, Assessed \T\ reinforced patient's understanding of fall precautions. Abuse screen: Denies threats or abuse. Denies injuries from another. Nutritional screening: No deficits noted. Tuberculosis screening: No symptoms or risk factors identified. Assessment: 02:32 General: see triage assessment. Neuro: No deficits noted. Villalobos Agitation-Sedation lg3 Scale (RASS): 0 - Alert and Calm Level of Consciousness is awake, alert, obeys commands, Oriented to person, place, time, situation. Vital Signs: 02:29 BP 148 / 80; Pulse 94; Resp 17 S; Temp 98.1(O); Pulse Ox 99% on R/A; Weight 86.18 kg lg3 (R); Height 5 ft. 11 in. (R); 02:29 Body Mass Index 26.50 (86.18 kg, 180.34 cm) lg3 ED Course: 02:28 Patient arrived in ED. lg3 02:30 Stu Mcarthur PA is PHCP. cp 02:30 Stu Banerjee MD is Attending Physician. cp 02:30 Triage completed. lg3 02:30 Arm band placed on right wrist. lg3 02:32 Patient has correct armband on for positive identification. lg3 02:32 No provider procedures requiring assistance completed. Patient did not have IV access lg3 during this emergency room visit. Administered Medications: 02:40 Drug: Ketorolac IM 30 mg IM once Route: IM; Site: right deltoid; lg3 02:40 Follow up: Response: No adverse reaction lg3 Medication: 02:32 VIS not applicable for this client. lg3 Outcome: 02:32 Discharge ordered by MD. skelton 02:40 Discharged to home via ambulance, lg3 02:40 Condition: stable 02:40 Discharge instructions given to patient, Instructed on discharge instructions, follow up and referral plans. Demonstrated understanding of instructions, follow-up care, 02:41 Patient left the ED. lg3 Signatures: Stu Mcarthur PA PA cp Able, Lacie, RN RN lg3
--- NOTE | 2025-01-09 02:32 | EDPHYS ---
Physician Documentation [facility] Name: Kiel Ngo Age: 74 yrs Sex: Male : 1950 Arrival Date: 01/09/2025 Time: 02:27 Bed 21 Private MD: ED Physician Stu Banerjee HPI: 01/09 02:30 This 74 yrs old Male presents to ER via EMS with complaints of Back Pain. cp 02:30 The patient presents with pain that is chronic, and is running out of pain medications, cp prescription pain medications. The symptoms are located in the back and left leg and right leg. Associated signs and symptoms: Pertinent negatives: abdominal pain, chest pain, fever. Severity of symptoms: in the emergency department the symptoms are unchanged, despite home interventions. Historical: - Allergies: 02:30 Demerol; lg3 02:30 metformin; lg3 - PMHx: 02:30 Atrial fibrillation; chronic back pain; Chronic right leg pain; lymphedema; neuropathy; lg3 - PSHx: 02:30 back sx; PANCREAS SX; R. Ankle SX; lg3 - Immunization history:: Adult Immunizations up to date. - Infectious Disease History:: Denies. - Social history:: Smoking status: Patient denies any tobacco usage or history of. Patient/guardian denies using alcohol, street drugs. ROS: 02:31 Constitutional: Negative for body aches, chills, fever, cp 02:31 Cardiovascular: Negative for chest pain, cp 02:31 Respiratory: Negative for cough, shortness of breath, wheezing, 02:31 Abdomen/GI: Negative for abdominal pain, 02:31 Back: Positive for pain at rest, pain with movement, 02:31 MS/extremity: Positive for pain, of the right leg and left leg, 02:31 Neuro: Negative for altered mental status, 02:31 All other systems are negative, Exam: 02:32 Constitutional: The patient appears in no acute distress, alert, awake, cp non-diaphoretic, non-toxic, well developed, well nourished, 02:32 Head/Face: Normocephalic, atraumatic. cp 02:32 Chest/axilla: Inspection: normal, 02:32 Cardiovascular: Rate: normal, 02:32 Respiratory: the patient does not display signs of respiratory distress, Respirations: normal, no use of accessory muscles, no retractions, labored breathing, is not present, 02:32 Abdomen/GI: Inspection: abdomen appears normal, Palpation: abdomen is soft and non-tender, in all quadrants, 02:32 Back: pain, 02:32 Musculoskeletal/extremity: Extremities: noted in the right leg and left leg: pain, 02:32 Skin: rash can be described as scaly, on the right leg and left leg, 02:32 Neuro: Orientation: to person, place \T\ time. Mentation: is normal, Vital Signs: 02:29 BP 148 / 80; Pulse 94; Resp 17 S; Temp 98.1(O); Pulse Ox 99% on R/A; Weight 86.18 kg lg3 (R); Height 5 ft. 11 in. (R); 02:29 Body Mass Index 26.50 (86.18 kg, 180.34 cm) lg3 MDM: 02:30 Medical Screening Exam initiated cp 02:30 Differential diagnosis: drug seeking, chronic pain. cp 02:32 Data reviewed: vital signs, nurses notes, and as a result, I will discharge patient. cp 02:32 I considered the following discharge prescriptions or medication management in the cp emergency department Medications were administered in the Emergency Department. See MAR. Counseling: I had a detailed discussion with the patient and/or guardian regarding the historical points, exam findings, and any diagnostic results supporting the discharge/admit diagnosis, the need for outpatient follow up, for definitive care, a painter touch up. Administered Medications: 02:40 Drug: Ketorolac IM 30 mg IM once Route: IM; Site: right deltoid; lg3 02:40 Follow up: Response: No adverse reaction lg3 Disposition: 23:50 Chart complete. cp Disposition Summary: 01/09/25 02:32 Discharge Ordered Notes: Location: Home cp Problem: chronic cp Symptoms: have improved cp Condition: Stable cp Diagnosis - Other chronic pain cp Followup: cp - With: Private Physician - When: 2 - 3 days - Reason: Recheck today's complaints Discharge Instructions: - Discharge Summary Sheet cp - Chronic Back Pain cp - Chronic Pain, Adult cp Forms: - Medication Reconciliation Form cp - Antibiotic Education cp - Prescription Opioid Use cp - Patient Portal Instructions cp - Leadership Thank You Letter cp Addendum: 01/11/2025 15:36 Co-signature as Attending Physician, Stu Banerjee MD I agree with the assessment and c robbins plan of care. Signatures: Stu Banerjee MD MD cha Page, Corey, PA PA Brenda Bailey, RN RN lg3 Corrections: (The following items were deleted from the chart) 01/09 23:45 02:33 This 74 yrs old Male presents to ER via EMS with complaints of Back Pain. cp cp :45 02:33 The patient presents with pain that is chronic, and is running out of pain cp medications, prescription pain medications, cp :45 02:33 The symptoms are located in the back and left leg and right leg, cp cp 23:45 02:33 Associated signs and symptoms: Pertinent negatives: abdominal pain, chest pain, cp fever, cp :45 02:33 Severity of symptoms: in the emergency department the symptoms are unchanged, cp despite home interventions, cp
[2025-01-09] MEDS ORDERED: KETOROLAC 30 MG/ML INJ ONE (02:33)
[2025-01-09 02:48] VITALS: BP 148/80; TEMP 98.1; O2SAT 99
== END 2025-01-09 02:41 | disposition home or self-care (01) ==
LOC: ER 02:27
DX: G89.29 Other chronic pain (principal)
CPT/HCPCS: 96372; 99284

== ENCOUNTER 2025-01-11 05:45 | Emergency (ER) | payer OTHER ==
[2025-01-11] MEDS ORDERED: KETOROLAC 30 MG/ML INJ ONE (05:52)
[2025-01-11] MEDS ORDERED: methocarbamoL 750 MG TAB ONE (05:52)
--- NOTE | 2025-01-11 05:58 | EDPHYS ---
Physician Documentation [facility] Name: Kiel Ngo Age: 74 yrs Sex: Male : 1950 Arrival Date: 01/11/2025 Time: 05:45 Bed 21 Private MD: ED Physician Benoit Weeks HPI: 01/11 05:54 This 74 yrs old Male presents to ER via EMS with complaints of back pain. sp4 21:23 Presents with EMS with complaint of worsening chronic back pain. Patient has presented sp4 for the same 6 times last month, PMH - Patient with history of chronic back pain and history of prolonged immobility. History of moderate to severe physical debility, Patient follows up with Dr. Betzy Rodriguez for his pain management needs. Patient states he has a Dilaudid pump which has not been refilled in a while. [facility] aware reveals prescription for Tylenol No. 4 on 12/15/2024 for 120 tablets total, . Patient is being prescribed Tylenol No. 4 tablets 120 total tabs every month. . On patient has requested Dilaudid for pain control.. Historical: - Allergies: 05:47 Demerol; lg3 05:47 metformin; lg3 - PMHx: 05:47 Atrial fibrillation; chronic back pain; Chronic right leg pain; lymphedema; neuropathy; lg3 - PSHx: 05:47 back sx; PANCREAS SX; R. Ankle SX; lg3 - Immunization history:: Adult Immunizations up to date. - Infectious Disease History:: Denies. - Social history:: Smoking status: Patient denies any tobacco usage or history of. - Family history:: not pertinent. ROS: 21:23 Constitutional: Negative for fever, chills, and weight loss, positive for worsening sp4 chronic back pain 21:23 All other systems are negative, Exam: 21:23 Constitutional: Patient is chronically debilitated male with signs of prolonged sp4 immobility, bilateral lower extremity disuse atrophy, patient presents on EMS stretcher. Nonambulatory on presentation. Head/Face: Normocephalic, atraumatic. Eyes: Pupils equal round and reactive to light, extra-ocular motions intact. Lids and lashes normal. Conjunctiva and sclera are not injected. Cornea within normal limits. Periorbital areas with no swelling, redness, or edema. ENT: Nares patent. No nasal discharge, no septal abnormalities noted. Tympanic membranes are normal and external auditory canals are clear. Oropharynx with no redness, swelling, or masses, exudates, or evidence of obstruction, uvula midline. Mucous membranes moist. Neck: Trachea midline, no thyromegaly or masses palpated, and no cervical lymphadenopathy. Supple, full range of motion without nuchal rigidity, or vertebral point tenderness. Chest/axilla: Normal chest wall appearance and motion. Nontender with no deformity. No lesions are appreciated. Cardiovascular: Regular rate and rhythm with a normal S1 and S2. No gallops, murmurs, or rubs. Normal PMI, no JVD. No pulse deficits. Respiratory: Lungs have equal breath sounds bilaterally, clear to auscultation and percussion. No rales, rhonchi or wheezes noted. No increased work of breathing, no retractions or nasal flaring. Abdomen/GI: Soft, with normal bowel sounds. No distension or tympany. No guarding or rebound. No evidence of tenderness throughout. Male : Normal genitalia with no discharge or lesions. Patient is incontinent of bowel and bladder Skin: Warm, dry with normal turgor. Normal color with no rashes, no lesions, and no evidence of cellulitis. MS/ Extremity: Pulses equal, no cyanosis. Lateral lower extremity disuse atrophy, bilateral lower extremity chronic venous stasis ulcers and skin changes. Signs of prolonged immobility and physical deconditioning Neuro: Awake and alert, GCS 15, oriented to person, place, time, and situation. Cranial nerves II-XII grossly intact. No changes from previous neurologic assessment. Vital Signs: 05:46 BP 174 / 81; Pulse 90; Resp 17 S; Temp 98.4(O); Pulse Ox 99% on R/A; Weight 81.65 kg lg3 (R); Height 5 ft. 11 in. (R); 05:46 Body Mass Index 25.10 (81.65 kg, 180.34 cm) lg3 [place] Coma Score: 21:23 Eye Response: spontaneous(4). Motor Response: obeys commands(6). Verbal Response: sp4 oriented(5). Total: 15. MDM: 05:57 Medical Screening Exam initiated sp4 21:23 Differential diagnosis: arthritis, Fatigue Osteoarthritis Osteoporosis. Data reviewed: sp4 vital signs, nurses notes, EMS record, old medical records. Consideration of Admission/Observation Escalation of care including admission/observation considered. ED course: Patient is well-known to me from prior visits. Patient is on chronic pain management. Patient is prescribed Tylenol No. 4 total of 120 tablets every month. Patient arrives today with complaint of worsening lower back pain and requests Dilaudid for pain management. Patient's request was refused. Patient was given intramuscular Toradol 15 mg and also p.o. Robaxin 750 mg. Patient discharged home in stable condition. Patient somewhat hypertensive but otherwise vital signs are unremarkable. He was advised to see his pain management physician to adjust his pain management regimen for better pain control . . Administered Medications: 06:03 Drug: Methocarbamol PO 750 mg PO once Route: PO; lg3 06:06 Follow up: Response: No adverse reaction lg3 06:03 Drug: Ketorolac IM 15 mg IM once Route: IM; Site: left deltoid; lg3 06:06 Follow up: Response: No adverse reaction lg3 Disposition: 21:29 Chart complete. sp4 Disposition Summary: 01/11/25 05:57 Discharge Ordered Notes: Location: Home sp4 Problem: new sp4 Symptoms: have improved sp4 Condition: Stable sp4 Diagnosis - Chronic pain, not elsewhere classified sp4 - Acute exacerbation of chronic back pain sp4 Followup: sp4 - With: Private Physician - When: 7 - 10 days - Reason: Recheck today's complaints Discharge Instructions: - Discharge Summary Sheet sp4 - Chronic Back Pain, [id number] sp4 Forms: - Patient Portal Instructions sp4 Signatures: Brenda Eden RN RN lg3 Benoit Weeks MD MD sp4
--- NOTE | 2025-01-11 05:58 | ER ---
Nurse's Notes [facility] Name: Kiel Ngo Age: 74 yrs Sex: Male : 1950 Arrival Date: 01/11/2025 Time: 05:45 Bed 21 Private MD: Diagnosis: Chronic pain, not elsewhere classified;Acute exacerbation of chronic back pain Presentation: 01/11 05:46 Chief complaint: Patient states: back pain. Coronavirus screen: Client denies travel lg3 out of the [place] in the last 14 days. At this time, the client does not indicate any symptoms associated with coronavirus-19. Ebola Screen: No symptoms or risks identified at this time. Initial Sepsis Screen: Does the patient meet any 2 criteria? No. Patient's initial sepsis screen is negative. Does the patient have a suspected source of infection? No. Patient's initial sepsis screen is negative. Risk Assessment: Do you want to hurt yourself or someone else? Patient reports no desire to harm self or others. Onset of symptoms is unknown. 05:46 Method Of Arrival: EMS: [facility] lg3 05:46 Acuity: [id number] 5 lg3 Triage Assessment: 05:47 General: Appears in no apparent distress. comfortable, Behavior is calm, cooperative. lg3 Pain: Complains of pain in back. EENT: No deficits noted. No signs and/or symptoms were reported regarding the EENT system. Neuro: No deficits noted. Villalobos Agitation-Sedation Scale (RASS): 0 - Alert and Calm Level of Consciousness is awake, alert, obeys commands, Oriented to person, place, time, situation. Cardiovascular: No deficits noted. Denies chest pain, shortness of breath, Capillary refill < 3 seconds Clubbing of nail beds is absent JVD is absent Patient's skin is warm and dry. Respiratory: No deficits noted. Airway is patent Respiratory effort is even, unlabored, Respiratory pattern is regular, symmetrical. GI: No deficits noted. No signs and/or symptoms were reported involving the gastrointestinal system. Abdomen is round non-distended. : No signs and/or symptoms were reported regarding the genitourinary system. Derm: No deficits noted. No signs and/or symptoms reported regarding the dermatologic system. Skin is intact, is healthy with good turgor, Skin is dry, Skin is normal. Musculoskeletal: No deficits noted. Circulation, motion, and sensation intact. Range of motion: intact in all extremities, Reports pain in back. Historical: - Allergies: 05:47 Demerol; lg3 05:47 metformin; lg3 - PMHx: 05:47 Atrial fibrillation; chronic back pain; Chronic right leg pain; lymphedema; neuropathy; lg3 - PSHx: 05:47 back sx; PANCREAS SX; R. Ankle SX; lg3 - Immunization history:: Adult Immunizations up to date. - Infectious Disease History:: Denies. - Social history:: Smoking status: Patient denies any tobacco usage or history of. - Family history:: not pertinent. Screenin:49 [facility] ED Fall Risk Assessment (Adult) History of falling in the last 3 months, lg3 including since admission No falls in past 3 months (0 pts) Confusion or Disorientation No (0 pts) Intoxicated or Sedated No (0 pts) Impaired Gait Yes (1 pt) Mobility Assist Device Used Yes (1 pt) Altered Elimination No (0 pt) Score/Fall Risk Level 0 - 2 = Low Risk Oriented to surroundings, Maintained a safe environment, Educated pt \T\ family on fall prevention, incl call for assistance when getting out of bed, Assessed \T\ reinforced patient's understanding of fall precautions. Abuse screen: Denies threats or abuse. Denies injuries from another. Nutritional screening: No deficits noted. Tuberculosis screening: No symptoms or risk factors identified. Assessment: 05:49 General: see triage assessment. lg3 Vital Signs: 05:46 BP 174 / 81; Pulse 90; Resp 17 S; Temp 98.4(O); Pulse Ox 99% on R/A; Weight 81.65 kg lg3 (R); Height 5 ft. 11 in. (R); 05:46 Body Mass Index 25.10 (81.65 kg, 180.34 cm) lg3 Gayathri Coma Score: 21:23 Eye Response: spontaneous(4). Motor Response: obeys commands(6). Verbal Response: sp4 oriented(5). Total: 15. ED Course: 05:46 Patient arrived in ED. lg3 05:47 Triage completed. lg3 05:47 Arm band placed on right wrist. lg3 05:49 Patient has correct armband on for positive identification. lg3 05:54 Benoit Weeks MD is Attending Physician. sp4 06:05 No provider procedures requiring assistance completed. Patient did not have IV access lg3 during this emergency room visit. Administered Medications: 06:03 Drug: Methocarbamol PO 750 mg PO once Route: PO; lg3 06:06 Follow up: Response: No adverse reaction lg3 06:03 Drug: Ketorolac IM 15 mg IM once Route: IM; Site: left deltoid; lg3 06:06 Follow up: Response: No adverse reaction lg3 Medication: 05:49 VIS not applicable for this client. lg3 Outcome: 05:57 Discharge ordered by . sp4 06:05 Discharged to home via ambulance, lg3 06:05 Condition: stable 06:05 Discharge instructions given to patient, Instructed on discharge instructions, follow up and referral plans. Demonstrated understanding of instructions, follow-up care, 06:06 Patient left the ED. lg3 Signatures: Brenda Eden RN RN lg3 Benoit Weeks MD MD sp4
[2025-01-11 06:13] VITALS: BP 174/81; TEMP 98.4; O2SAT 99
== END 2025-01-11 06:06 | disposition home or self-care (01) ==
LOC: ER 05:45
DX: G89.29 Other chronic pain (principal)
CPT/HCPCS: 96372; 99284

== ENCOUNTER 2025-02-16 02:25 | Emergency (ER) | payer OTHER ==
[2025-02-16] MEDS ORDERED: PROMETHAZINE 25 MG TABLET ONE (02:44)
[2025-02-16] MEDS ORDERED: methocarbamoL 750 MG TAB ONE (02:45)
[2025-02-16] MEDS ORDERED: KETOROLAC 30 MG/ML INJ ONE (02:45)
--- NOTE | 2025-02-16 02:54 | EDPHYS ---
Physician Documentation [facility] Name: Kiel Ngo Age: 74 yrs Sex: Male : 1950 Arrival Date: 02/16/2025 Time: 02:25 Bed 7 Private MD: ED Physician Benoit Weeks HPI: 02/16 02:36 This 74 yrs old Male presents to ER via EMS with complaints of Back Pain. sp4 23:55 Mr. Ngo is a very pleasant 74-year-old male with history of prolonged immobility sp4 chronic back pain chronic bilateral lower extremity pain and chronic lymphedema. Patient presents with acute worsening back pain. Patient consumes Tylenol No. 4 at home as needed for pain. Periodically patient comes in with worsening pain. Historical: - Allergies: 02:36 Demerol; al5 02:36 metformin; al5 - Home Meds: 02:36 Alprazolam Oral [Active]; Ambien Oral [Active]; Benadryl Oral [Active]; Effexor Oral al5 [Active]; humulin [Active]; Hydroxyzine Oral [Active]; Keppra Oral [Active]; Klonopin 2 mg Oral TbDi 2 tabs 4 times a day [Active]; Metoprolol Tartrate Oral [Active]; tizanidine oral [Active]; venlafaxine oral [Active]; - PMHx: 02:36 Atrial fibrillation; chronic back pain; Chronic right leg pain; lymphedema; neuropathy; al5 - PSHx: 02:36 back sx; PANCREAS SX; R. Ankle SX; al5 - Immunization history:: Adult Immunizations up to date. - Infectious Disease History:: Denies. - Social history:: Smoking status: Patient denies any tobacco usage or history of. - Family history:: not pertinent. ROS: 23:56 Constitutional: Negative for fever, chills, and weight loss, positive for worsening sp4 back pain 23:56 All other systems are negative, Exam: 23:56 Constitutional: Patient is physically debilitated male, signs of prolonged immobility, sp4 bilateral lower extremity swelling. Signs of physical debility Head/Face: Normocephalic, atraumatic. Eyes: Pupils equal round and reactive to light, extra-ocular motions intact. Lids and lashes normal. Conjunctiva and sclera are not injected. Cornea within normal limits. Periorbital areas with no swelling, redness, or edema. ENT: Nares patent. No nasal discharge, no septal abnormalities noted. Tympanic membranes are normal and external auditory canals are clear. Oropharynx with no redness, swelling, or masses, exudates, or evidence of obstruction, uvula midline. Mucous membranes moist. Neck: Trachea midline, no thyromegaly or masses palpated, and no cervical lymphadenopathy. Supple, full range of motion without nuchal rigidity, or vertebral point tenderness. Chest/axilla: Normal chest wall appearance and motion. Nontender with no deformity. No lesions are appreciated. Cardiovascular: Regular rate and rhythm with a normal S1 and S2. No gallops, murmurs, or rubs. Normal PMI, no JVD. No pulse deficits. Respiratory: Lungs have equal breath sounds bilaterally, clear to auscultation and percussion. No rales, rhonchi or wheezes noted. No increased work of breathing, no retractions or nasal flaring. Abdomen/GI: Soft, with normal bowel sounds. No distension or tympany. No guarding or rebound. No evidence of tenderness throughout. Back: No spinal tenderness. No costovertebral tenderness. Skin: Warm, dry with normal turgor. Normal color with no rashes, no lesions, and no evidence of cellulitis. MS/ Extremity: Pulses equal, no cyanosis. Neurovascular intact. Full, normal range of motion. Neuro: Awake and alert, GCS 15, oriented to person, place, time, and situation. Exam limited secondary to prolonged immobility, no new neurologic deficits since prior exam. Vital Signs: 02:34 BP 137 / 82; Pulse 100; Resp 16; Temp 98.3; Pulse Ox 98% on R/A; Weight 83.91 kg; al5 Height 5 ft. 11 in. ; 03:00 BP 149 / 86; Pulse 103; Resp 16; Pulse Ox 98% ; al5 03:30 BP 135 / 80; Pulse 105; Resp 16; Pulse Ox 97% ; al5 02:34 Body Mass Index 25.80 (83.91 kg, 180.34 cm) al5 Gayathri Coma Score: 23:56 Eye Response: spontaneous(4). Motor Response: obeys commands(6). Verbal Response: sp4 oriented(5). Total: 15. MDM: 02:54 Medical Screening Exam initiated sp4 23:58 Differential diagnosis: chronic back pain, Fatigue Fracture Ligament Injury sp4 Osteoporosis. Data reviewed: vital signs, nurses notes, old medical records. ED course: Patient was medicated for pain. Vital signs are stable. Patient stable for discharge home. Requested EMS transport.. Administered Medications: 02:52 Drug: Ketorolac IM 60 mg IM once Route: IM; Site: right vastus lateralis; al5 03:23 Follow up: Response: No adverse reaction; Pain is unchanged, physician notified al5 02:52 Drug: Promethazine PO 25 mg PO once Route: PO; al5 03:23 Follow up: Response: No adverse reaction al5 02:52 Drug: Methocarbamol PO 1500 mg PO once Route: PO; al5 03:23 Follow up: Response: No adverse reaction; Pain is unchanged, physician notified al5 Disposition: 23:59 Chart complete. sp4 Disposition Summary: 02/16/25 02:54 Discharge Ordered Notes: Location: Home sp4 Problem: new sp4 Symptoms: have improved sp4 Condition: Stable sp4 Diagnosis - Exacerbation of chronic back pain, lumbar pain sp4 - Physical debility sp4 Followup: sp4 - With: Private Physician - When: 7 - 10 days - Reason: Recheck today's complaints Discharge Instructions: - Discharge Summary Sheet sp4 - Acute Back Pain, Adult sp4 Signatures: Benoit Weeks MD MD sp4 Katharine Gaspar RN RN al5
--- NOTE | 2025-02-16 02:54 | ER ---
Nurse's Notes [facility] Name: Kiel Ngo Age: 74 yrs Sex: Male : 1950 Arrival Date: 02/16/2025 Time: 02:25 Bed 7 Private MD: Diagnosis: Exacerbation of chronic back pain, lumbar pain;Physical debility Presentation: 02/16 02:34 Chief complaint: EMS states: hx of chronic back pain, is out of his pain medication at al5 home, c/o back pain. Coronavirus screen: At this time, the client does not indicate any symptoms associated with coronavirus-19. Ebola Screen: No symptoms or risks identified at this time. Initial Sepsis Screen: Does the patient meet any 2 criteria? HR > 90 bpm. No. Patient's initial sepsis screen is negative. Does the patient have a suspected source of infection? No. Patient's initial sepsis screen is negative. Risk Assessment: Do you want to hurt yourself or someone else? Patient reports no desire to harm self or others. Onset of symptoms was February 16, 2025. 02:34 Method Of Arrival: EMS: [facility] al5 02:34 Acuity: JOZEF 4 al5 Triage Assessment: 02:37 General: Appears in no apparent distress. comfortable, Behavior is calm, cooperative. al5 Pain: Complains of pain in back. EENT: No signs and/or symptoms were reported regarding the EENT system. Neuro: Level of Consciousness is awake, alert, obeys commands, Oriented to person, place, time, situation. Cardiovascular: Capillary refill < 3 seconds Patient's skin is warm and dry. Respiratory: Airway is patent Respiratory effort is even, unlabored, Respiratory pattern is regular, symmetrical. GI: Abdomen is non-distended, obese. : No signs and/or symptoms were reported regarding the genitourinary system. Derm: Skin is intact, Skin is pink, warm \T\ dry. normal. Musculoskeletal: paraplegic Reports pain in back. Historical: - Allergies: 02:36 Demerol; al5 02:36 metformin; al5 - Home Meds: 02:36 Alprazolam Oral [Active]; Ambien Oral [Active]; Benadryl Oral [Active]; Effexor Oral al5 [Active]; humulin [Active]; Hydroxyzine Oral [Active]; Keppra Oral [Active]; Klonopin 2 mg Oral TbDi 2 tabs 4 times a day [Active]; Metoprolol Tartrate Oral [Active]; tizanidine oral [Active]; venlafaxine oral [Active]; - PMHx: 02:36 Atrial fibrillation; chronic back pain; Chronic right leg pain; lymphedema; neuropathy; al5 - PSHx: 02:36 back sx; PANCREAS SX; R. Ankle SX; al5 - Immunization history:: Adult Immunizations up to date. - Infectious Disease History:: Denies. - Social history:: Smoking status: Patient denies any tobacco usage or history of. - Family history:: not pertinent. Screenin:39 [facility] ED Fall Risk Assessment (Adult) History of falling in the last 3 months, al5 including since admission No falls in past 3 months (0 pts) Confusion or Disorientation No (0 pts) Intoxicated or Sedated No (0 pts) Impaired Gait Yes (1 pt) Mobility Assist Device Used Yes (1 pt) Altered Elimination Yes (1 pt) Score/Fall Risk Level 3 or more points = High Risk Oriented to surroundings, Maintained a safe environment, Hourly rounding (assess needs \T\ fall precautionary measures) done. Abuse screen: Denies threats or abuse. Denies injuries from another. Nutritional screening: No deficits noted. Tuberculosis screening: No symptoms or risk factors identified. Assessment: 02:39 Reassessment: see triage assessment. al5 03:22 Reassessment: Patient appears in no apparent distress at this time. No changes from al5 previously documented assessment. Patient and/or family updated on plan of care and expected duration. Pain level reassessed. Patient is alert, oriented x 3, equal unlabored respirations, skin warm/dry/pink. discharge pending ems for transfer. Vital Signs: 02:34 BP 137 / 82; Pulse 100; Resp 16; Temp 98.3; Pulse Ox 98% on R/A; Weight 83.91 kg; al5 Height 5 ft. 11 in. ; 03:00 BP 149 / 86; Pulse 103; Resp 16; Pulse Ox 98% ; al5 03:30 BP 135 / 80; Pulse 105; Resp 16; Pulse Ox 97% ; al5 02:34 Body Mass Index 25.80 (83.91 kg, 180.34 cm) al5 [place] Coma Score: 23:56 Eye Response: spontaneous(4). Motor Response: obeys commands(6). Verbal Response: sp4 oriented(5). Total: 15. ED Course: 02:30 Patient arrived in ED. vk 02:34 Katharine Gaspar, RN is Primary Nurse. al5 02:34 Benoit Weeks MD is Attending Physician. al5 02:35 Triage completed. al5 02:38 Arm band placed on right wrist. Patient placed in the treatment room, in view of staff al5 members, on pulse oximetry. 02:39 Patient has correct armband on for positive identification. Placed in gown. Bed in low al5 position. Call light in reach. Side rails up X2. Provided Education on: medications. 02:39 No provider procedures requiring assistance completed. Patient did not have IV access al5 during this emergency room visit. 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 vk Administered Medications: 02:52 Drug: Ketorolac IM 60 mg IM once Route: IM; Site: right vastus lateralis; al5 03:23 Follow up: Response: No adverse reaction; Pain is unchanged, physician notified al5 02:52 Drug: Promethazine PO 25 mg PO once Route: PO; al5 03:23 Follow up: Response: No adverse reaction al5 02:52 Drug: Methocarbamol PO 1500 mg PO once Route: PO; al5 03:23 Follow up: Response: No adverse reaction; Pain is unchanged, physician notified al5 Medication: 02:39 VIS not applicable for this client. al5 Outcome: 02:54 Discharge ordered by . sp4 03:50 Discharged to home via ambulance, al5 03:50 Condition: stable 03:50 Discharge instructions given to patient, Instructed on discharge instructions, follow up and referral plans. Demonstrated understanding of instructions, follow-up care, 04:25 Patient left the ED. al5 Signatures: Benoit Weeks MD MD sp4 Nandini Temple Amanda, RN RN al5 Corrections: (The following items were deleted from the chart) 04:24 03:22 Reassessment: discharge pending ems for transfer al5 al5
[2025-02-16 12:10] VITALS: TEMP 98.3
[2025-02-16 12:13] VITALS: BP 135/80; O2SAT 97
== END 2025-02-16 04:25 | disposition home or self-care (01) ==
LOC: ER 02:25
DX: M54.50 Low back pain, unspecified (principal); G89.29 Other chronic pain
CPT/HCPCS: 96372; 99284; Q0169

== ENCOUNTER 2025-06-28 05:34 | Emergency (ER) | payer OTHER ==
[2025-06-28] MEDS ORDERED: METOCLOPRAMIDE 5 MG TAB ONE (06:04)
[2025-06-28] MEDS ORDERED: NA CHLORIDE 0.9% 1,000 ML ONE (06:05)
[2025-06-28] MEDS ORDERED: DIPHENOX/ATROP SULF 1 TAB PO ONE (06:05)
[2025-06-28 06:30] LABS: Absolute Lymphocytes (CBC) 1.8 K/uL (0.7-4.9); Hematocrit 36.6 % (39.6-49.0); Hemoglobin 12.8 g/dL (13.6-17.9); MCH 31.6 pg (27.0-35.0); MCHC 34.9 g/dL (32.0-36.0); MCV 90.7 fL (80-100); MPV 6.4 fL (7.6-11.3); Nucleated RBC Absolute Count 0.1 (0-0); Nucleated Red Blood Cells % 0.9 % (0-0); RBC Red Blood Cell Count 4.03 M/uL (4.33-5.43); White Blood Count 9.30 thou/uL (4.3-10.9)
[2025-06-28 06:47] LABS: ALT/SGPT 27.0 U/L (16-61); AST/SGOT 18.0 U/L (15-37); Albumin 2.7 g/dL (3.4-5.0); Albumin/Globulin Ratio 0.7 (1.1-1.8); Alkaline Phosphatase 217.0 U/L (45-117); Anion Gap 6.5 mEq/L (5.0-15.0); BUN Blood Urea Nitrogen 17.0 mg/dL (7-18); Globulin 4.1 g/dL (2.3-3.5); Glucose Level 102.0 mg/dL (74-106); Lipase 8.0 U/L (13-75); Potassium 4.5 mEq/L (3.5-5.1)
[2025-06-28] MEDS ORDERED: KETOROLAC 30 MG/ML INJ ONE (06:58)
--- NOTE | 2025-06-28 07:20 | EDPHYS ---
Physician Documentation [facility] Name: Kiel Ngo Age: 74 yrs Sex: Male : 1950 Arrival Date: 06/28/2025 Time: 05:34 Bed 8 Private MD: ED Physician Benoit Weeks HPI: 06/28 06:00 This 74 yrs old Male presents to ER via EMS with complaints of Diarrhea. sp4 06:31 74-year-old male presents with complaint of acute onset of diarrheal illness. Denied sp4 nausea vomiting. Historical: - Allergies: 05:49 Demerol; al5 05:49 metformin; al5 - PMHx: 05:49 Atrial fibrillation; chronic back pain; Chronic right leg pain; lymphedema; neuropathy; al5 - PSHx: 05:49 back sx; PANCREAS SX; R. Ankle SX; al5 - Immunization history:: Adult Immunizations up to date. - Infectious Disease History:: Denies. - Social history:: Smoking status: Patient denies any tobacco usage or history of. - Family history:: not pertinent. ROS: 06:31 Constitutional: Negative for fever, chills, and weight loss, positive for acute sp4 diarrhea 06:31 All other systems are negative, Exam: 06:31 Constitutional: This is a well developed, well nourished patient who is awake, alert, sp4 physically debilitated male. Signs of prolonged immobility. Signs of chronic bilateral lower extremity weakness and atrophy Head/Face: Normocephalic, atraumatic. Eyes: Pupils equal round and reactive to light, extra-ocular motions intact. Lids and lashes normal. Conjunctiva and sclera are not injected. Cornea within normal limits. Periorbital areas with no swelling, redness, or edema. ENT: Nares patent. No nasal discharge, no septal abnormalities noted. Tympanic membranes are normal and external auditory canals are clear. Oropharynx with no redness, swelling, or masses, exudates, or evidence of obstruction, uvula midline. Mucous membranes moist. Neck: Trachea midline, no thyromegaly or masses palpated, and no cervical lymphadenopathy. Supple, full range of motion without nuchal rigidity, or vertebral point tenderness. Chest/axilla: Normal chest wall appearance and motion. Nontender with no deformity. No lesions are appreciated. Cardiovascular: Regular rate and rhythm with a normal S1 and S2. No gallops, murmurs, or rubs. No pulse deficits. Respiratory: Lungs have equal breath sounds bilaterally, clear to auscultation and percussion. No rales, rhonchi or wheezes noted. No increased work of breathing, no retractions or nasal flaring. Abdomen/GI: Soft, with normal bowel sounds. No distension or tympany. No guarding or rebound. No evidence of tenderness throughout. Back: No spinal tenderness. No costovertebral tenderness. Male : Normal genitalia with no discharge or lesions. Patient is incontinent of bowel and bladder. Wears depends Skin: Warm, dry with normal turgor. Normal color with no rashes, no lesions, and no evidence of cellulitis. MS/ Extremity: Pulses equal, no cyanosis. Neurovascular intact. Chronic bilateral lower extremity atrophy. Neuro: Awake and alert, GCS 15, oriented to person, place, time, and situation. Signs of prolonged physical debility and immobility, bedbound, bilateral lower extremity atrophy Psych: Awake, alert, with orientation to person, place and time. Behavior, mood, and affect are within normal limits Vital Signs: 05:47 BP 170 / 94; Pulse 85; Resp 16; Temp 97.4(A); Pulse Ox 99% on R/A; Weight 94.5 kg (M); al5 Height 5 ft. 11 in. ; 06:25 BP 178 / 96; Pulse 88; Resp 16; Pulse Ox 100% on R/A; kb4 07:00 BP 183 / 90; Pulse 83; Resp 16; Temp 98(O); Pulse Ox 100% on R/A; iw 05:47 Body Mass Index 29.06 (94.50 kg, 180.34 cm) al5 [place] Coma Score: 06:31 Eye Response: spontaneous(4). Motor Response: obeys commands(6). Verbal Response: sp4 oriented(5). Total: 15. MDM: 05:56 Medical Screening Exam initiated sp4 06:34 Differential diagnosis: Nonspecific abd pain, gastritis, viral gastroenteritis, sp4 gastroenteritis. 22:33 Data reviewed: vital signs, nurses notes, EMS record, old medical records, lab test sp4 result(s), CBC, electrolytes, hepatic panel. Consideration of Admission/Observation Escalation of care including admission/observation considered. ED course: Patient will be prescribed Lomotil for diarrhea control. Advise clear liquid diet for 24 hours. 06/28 05:59 Order name: CBC with Diff sp4 06/28 05:59 Order name: CMP; Complete Time: 07:07 sp4 06/28 05:59 Order name: Lipase; Complete Time: 07:07 sp4 06/28 06:37 Order name: CBC Smear Scan EDMS 06/28 05:59 Order name: IV Saline Lock; Complete Time: 06:37 sp4 06/28 05:59 Order name: Labs collected and sent; Complete Time: 06:37 sp4 Administered Medications: 06:20 Drug: Diphenoxylate-Atropine PO 2 tabs PO once Route: PO; kb4 06:36 Follow up: Response: No adverse reaction kb4 06:20 Drug: MetoCLOPramide PO 10 mg PO once Route: PO; kb4 06:36 Follow up: Response: No adverse reaction kb4 06:37 Drug: NS 0.9% IV 1000 ml IV at 1 bolus Per protocol; to be given as a bolus over 60 kd3 minutes Route: IV; Rate: 1 bolus; Site: right antecubital; 08:07 Follow up: IV Status: Completed infusion iw 07:10 Drug: Ketorolac IVP 30 mg IVP once Route: IVP; Site: right antecubital; db 07:29 Follow up: Response: No adverse reaction; Pain is decreased iw Disposition: 22:33 Chart complete. sp4 Disposition Summary: 06/28/25 07:19 Discharge Ordered Notes: Location: Home sp4 Problem: new sp4 Symptoms: have improved sp4 Condition: Stable sp4 Diagnosis - Acute gastroenteritis, acute diarrheal illness sp4 Followup: sp4 - With: Private Physician - When: 7 - 10 days - Reason: Recheck today's complaints Discharge Instructions: - Discharge Summary Sheet sp4 - Clear Liquid Diet, Adult, [id number] sp4 Forms: - Patient Portal Instructions sp4 Prescriptions: - Reglan 10 mg Oral tablet - take 1 tablet ORAL route every 6 hours PRN nausea; 30 tablet; Refills: 0, sp4 Product Selection Permitted - Lomotil 2.5-0.025 mg Oral tablet - take 1 tablet ORAL route every 6 hours As needed PRN diarrhea; 30 tablet; sp4 Refills: 0, Product Selection Permitted Signatures: Dispatcher [employer] EDMS Karen Ambrocio, RN RN kd3 Graciela Gentile, RN RN db Benoit Weeks MD MD sp4 Katharine Gaspar RN RN al5 Tiana Salcedo RN RN kb4 Juanita Mcguire RN iw Corrections: (The following items were deleted from the chart) 06:00 06:00 CBC+H.LAB.BRZ ordered. EDMS EDMS 06:00 06:00 COMPREHENSIVE METABOLIC PANEL+C.LAB.BRZ ordered. EDMS EDMS 06:00 06:00 LIPASE+C.LAB.BRZ ordered. EDMS EDMS
--- NOTE | 2025-06-28 07:20 | ER ---
Nurse's Notes [facility] Name: Kiel Ngo Age: 74 yrs Sex: Male : 1950 Arrival Date: 06/28/2025 Time: 05:34 Bed 8 Private MD: Diagnosis: Acute gastroenteritis, acute diarrheal illness Presentation: 06/28 05:47 Chief complaint: Patient states: pt c/o diarrhea x3 days along with lower abdominal and al5 generalized chronic pain. states he has been taking imodium at home for the diarrhea, but has been out of his pain medications at home. Coronavirus screen: At this time, the client does not indicate any symptoms associated with coronavirus-19. Ebola Screen: No symptoms or risks identified at this time. Initial Sepsis Screen: Does the patient meet any 2 criteria? No. Patient's initial sepsis screen is negative. Does the patient have a suspected source of infection? No. Patient's initial sepsis screen is negative. Risk Assessment: Do you want to hurt yourself or someone else? Patient reports no desire to harm self or others. Onset of symptoms was June 25, 2025. 05:47 Method Of Arrival: EMS: [facility] al5 05:47 Acuity: JOZEF 3 al5 Triage Assessment: 05:49 General: Appears in no apparent distress. comfortable, Behavior is calm, cooperative. al5 Pain: Complains of pain in right lower quadrant and left lower quadrant, "all over". EENT: No signs and/or symptoms were reported regarding the EENT system. Neuro: Level of Consciousness is awake, alert, obeys commands, Oriented to person, place, time, situation. Cardiovascular: Capillary refill < 3 seconds Patient's skin is warm and dry. Respiratory: Airway is patent Respiratory effort is even, unlabored, Respiratory pattern is regular, symmetrical. GI: Abdomen is non-distended, Reports lower abdominal pain, diarrhea. : No signs and/or symptoms were reported regarding the genitourinary system. Derm: Skin is intact, Skin is pink, warm \\T\\ dry. normal. Musculoskeletal: Range of motion: intact in upper arms. Historical: - Allergies: 05:49 Demerol; al5 05:49 metformin; al5 - PMHx: 05:49 Atrial fibrillation; chronic back pain; Chronic right leg pain; lymphedema; neuropathy; al5 - PSHx: 05:49 back sx; PANCREAS SX; R. Ankle SX; al5 - Immunization history:: Adult Immunizations up to date. - Infectious Disease History:: Denies. - Social history:: Smoking status: Patient denies any tobacco usage or history of. - Family history:: not pertinent. Screenin:52 [facility] ED Fall Risk Assessment (Adult) History of falling in the last 3 months, al5 including since admission No falls in past 3 months (0 pts) Confusion or Disorientation No (0 pts) Intoxicated or Sedated No (0 pts) Impaired Gait Yes (1 pt) Mobility Assist Device Used Yes (1 pt) Altered Elimination Yes (1 pt) Score/Fall Risk Level 3 or more points = High Risk Oriented to surroundings, Maintained a safe environment, Hourly rounding (assess needs \\T\\ fall precautionary measures) done. Abuse screen: Denies threats or abuse. Denies injuries from another. Nutritional screening: No deficits noted. Tuberculosis screening: No symptoms or risk factors identified. Assessment: 05:52 Reassessment: see triage assessment. al5 07:17 Reassessment: Patient appears in no apparent distress at this time. Patient and/or db family updated on plan of care and expected duration. Pain level reassessed. Patient is alert, oriented x 3, equal unlabored respirations, skin warm/dry/pink. General: Appears in no apparent distress. comfortable, Behavior is calm, cooperative. Neuro: Level of Consciousness is awake, alert, obeys commands, Oriented to person, place, time, situation. Respiratory: Airway is patent Respiratory effort is even, unlabored, Respiratory pattern is regular, symmetrical. 07:29 Reassessment: Patient appears in no apparent distress at this time. Patient and/or iw family updated on plan of care and expected duration. Pain level reassessed. 07:57 Reassessment: pt cleaned of incontinence, brief applied, pt repositioned in bed , iw awaiting transport home. Vital Signs: 05:47 BP 170 / 94; Pulse 85; Resp 16; Temp 97.4(A); Pulse Ox 99% on R/A; Weight 94.5 kg (M); al5 Height 5 ft. 11 in. ; 06:25 BP 178 / 96; Pulse 88; Resp 16; Pulse Ox 100% on R/A; kb4 07:00 BP 183 / 90; Pulse 83; Resp 16; Temp 98(O); Pulse Ox 100% on R/A; iw 05:47 Body Mass Index 29.06 (94.50 kg, 180.34 cm) al5 [place] Coma Score: 06:31 Eye Response: spontaneous(4). Motor Response: obeys commands(6). Verbal Response: sp4 oriented(5). Total: 15. ED Course: 05:47 Patient arrived in ED. vc1 05:47 Benoit Weeks MD is Attending Physician. al5 05:49 Tiana Salcedo, RN is Primary Nurse. kb4 05:49 Triage completed. al5 05:49 Arm band placed on right wrist. Patient placed in the treatment room, in view of staff al5 members, on pulse oximetry. 05:52 Bed in low position. Call light in reach. Side rails up X2. Provided Education on: plan al5 of care. 05:52 No provider procedures requiring assistance completed. al5 06:10 Missed attempt(s): 22 gauge in right antecubital area. Bleeding controlled, band aid al5 applied, catheter tip intact. 06:10 Missed attempt(s): 22 gauge in right forearm. Bleeding controlled, band aid applied, al5 catheter tip intact. 06:35 Inserted saline lock: 18 gauge in right antecubital area, using aseptic technique. kd3 Blood collected. Flushed with 10 mL NS. 06:37 CBC with Diff Sent. kd3 06:37 CMP Sent. kd3 06:37 Lipase Sent. kd3 06:37 CBC Smear Scan Sent. kd3 07:05 Primary Nurse role handed off by Tiana Salcedo RN iw 07:05 Juanita Mcguire, RN is Primary Nurse. iw 07:17 Pulse ox on. NIBP on. db 07:58 IV discontinued, intact, bleeding controlled, No redness/swelling at site. Pressure iw dressing applied. Administered Medications: 06:20 Drug: Diphenoxylate-Atropine PO 2 tabs PO once Route: PO; kb4 06:36 Follow up: Response: No adverse reaction kb4 06:20 Drug: MetoCLOPramide PO 10 mg PO once Route: PO; kb4 06:36 Follow up: Response: No adverse reaction kb4 06:37 Drug: NS 0.9% IV 1000 ml IV at 1 bolus Per protocol; to be given as a bolus over 60 kd3 minutes Route: IV; Rate: 1 bolus; Site: right antecubital; 08:07 Follow up: IV Status: Completed infusion iw 07:10 Drug: Ketorolac IVP 30 mg IVP once Route: IVP; Site: right antecubital; db 07:29 Follow up: Response: No adverse reaction; Pain is decreased iw Medication: 05:52 VIS not applicable for this client. al5 Outcome: 07:19 Discharge ordered by MD. mascorro 08:07 Discharged to home via ambulance, iw 08:07 Discharged to via EMS 08:07 Condition: good 08:07 Discharge instructions given to patient, Instructed on discharge instructions, follow up and referral plans. medication usage, Demonstrated understanding of instructions, follow-up care, medications, Prescriptions given X 2, 08:07 Patient left the ED. iw Signatures: Juanita Mcguire RN RN iw Karen Ambrocio RN RN kd3 Coral Sumner RN RN vc1 Graciela Gentile RN RN Benoit Rankin MD MD sp4 Katharine Gaspar RN RN al5 Tiana Salcedo RN RN kb4 Corrections: (The following items were deleted from the chart) 06:13 06:10 Missed attempt(s): 22 gauge in right antecubital area. al5 al5 07:29 07:00 BP 183 / 90; Pulse 83bpm; Resp 16bpm; Pulse Ox 100% RA; db iw
[2025-06-28 08:10] LABS: White Blood Cell Scan OK (OK)
[2025-06-28 08:11] LABS: Blood Morphology Comment NOT SEEN (NOT SEEN)
[2025-06-28 08:14] VITALS: O2SAT 100
[2025-06-28 08:16] VITALS: BP 183/90; TEMP 98
== END 2025-06-28 08:07 | disposition home or self-care (01) ==
LOC: ER 05:34
DX: K52.9 Noninfective gastroenteritis and colitis, unspecified (principal); I48.91 Unspecified atrial fibrillation; Z88.5 Allergy status to narcotic agent; Z88.8 Allergy status to other drugs, medicaments and biological substances
CPT/HCPCS: 96361; 85025; 36415; 83690; 80053; 96374; 99285; J7030

== ENCOUNTER 2025-07-05 06:11 | Emergency (ER) | payer OTHER ==
--- NOTE | 2025-07-05 06:37 | EDPHYS ---
Physician Documentation [facility] Name: Kiel Ngo Age: 74 yrs Sex: Male : 1950 Arrival Date: 07/05/2025 Time: 06:11 Bed 13 Private MD: ED Physician Aron Mahan HPI: 07/05 06:45 This 74 yrs old Male presents to ER via EMS with complaints of eye irritation. tt7 06:45 Patient reports left eye redness, itchiness, and burning for the past 5 days, yesterday tt7 he felt like his right eye was starting to get a little irritated, today he reports that he woke up and now both eyes are red, itchy, and burning. No associated fever, cough. He denies any vision changes, photophobia, or pain with eye movement. No significant past medical history. Historical: - Allergies: 06:43 Demerol; tb4 06:43 metformin; tb4 - Home Meds: 06:43 Alprazolam Oral [Active]; Ambien Oral [Active]; Benadryl Oral [Active]; tb4 - PMHx: 06:43 Atrial fibrillation; chronic back pain; neuropathy; Chronic right leg pain; lymphedema; tb4 - PSHx: 06:43 back sx; PANCREAS SX; R. Ankle SX; tb4 - Immunization history:: Adult Immunizations up to date. - Infectious Disease History:: Denies. - Social history:: Smoking status: Patient denies any tobacco usage or history of. Patient/guardian denies using alcohol, street drugs, tobacco products. ROS: 06:47 Constitutional: negative for fever. Cardiovascular: negative for chest pain. tt7 Respiratory: negative for shortness of breath. Abdomen/GI: negative for abdominal pain, nausea, vomiting, diarrhea. MS/Extremity: negative for injury and deformity. Skin: negative for rash. Neuro: negative for focal weakness. 06:47 Eyes: Positive for itching, redness, Negative for blurry vision, injury or acute deformity, photophobia, vision loss, visual disturbance, Exam: 06:47 Constitutional: vital signs reviewed, well appearing. Head/Face: normocephalic, tt7 atraumatic. ENT: mucus membranes moist. Cardiovascular: regular rate and rhythm, no lower extremity edema. Respiratory: normal respiratory effort, no accessory muscle use. Back: normal ROM. Skin: warm, dry, intact, normal color, no rash. MS/ Extremity: no gross deformities. Neuro: alert and oriented with appropriate mental status, normal speech, follows commands, no focal neurologic deficits. Psych: appropriate mood and affect. 06:47 Eyes: Periorbital structures: appear normal, no abrasion, no cellulitis, no contusion, no ecchymosis, no erythema, no laceration, no swelling, Pupils: equal, round, and reactive to light and accomodation, Extraocular movements: intact throughout, Conjunctiva: chemosis, is not appreciated, excoriated, is not appreciated, exudate, bilaterally, very scant straw colored thin exudate, injected, bilaterally, Corneas: are normal, no foreign body, Lids and lashes: appear normal, bilaterally, Visual domínguez: are intact, Nystagmus: is not appreciated, Vital Signs: 06:28 BP 171 / 91; Pulse 99; Resp 19; Pulse Ox 97% on R/A; Weight 83.91 kg; Height 5 ft. 11 tb4 in. ; Pain 8/10; 06:43 BP 165 / 85; Pulse 94; Resp 19; Pulse Ox 100% on R/A; tb4 06:28 Body Mass Index 25.80 (83.91 kg, 180.34 cm) tb4 06:28 Pain Scale: Adult tb4 MDM: 06:24 Medical Screening Exam initiated tt7 06:50 Differential Diagnosis Allergic conjunctivitis, viral conjunctivitis, bacterial tt7 conjunctivitis. Data reviewed: vital signs, nurses notes. I considered the following discharge prescriptions or medication management in the emergency department Antibiotics: At this time antibiotics are not recommended, Pain Medications: At this time, prescription pain medications are not recommended, Medications were administered in the Emergency Department. See MAR. Historians other than the Patient: EMS: Provided collateral history. Counseling: I had a detailed discussion with the patient and/or guardian regarding the historical points, exam findings, and any diagnostic results supporting the discharge/admit diagnosis, the need for outpatient follow up, to return to the emergency department if symptoms worsen or persist or if there are any questions or concerns that arise at home. ED course: Physical exam findings are consistent with viral conjunctivitis, I do not suspect bacterial conjunctivitis at all as the patient has very mildly injected conjunctiva, very minimal amount of scant stringy straw-colored discharge, after completion of the patient's emergency department evaluation, I do not suspect a life-threatening or disabling process. Patient is medically stable and not in need of emergent medical intervention. I had a detailed discussion with the patient regarding the historical points, exam findings, emergency department evaluation, diagnostic results, and the discharge diagnosis. I instructed the patient on outpatient management of their condition. I discussed the need for outpatient follow-up with a primary care physician. I informed the patient on return precautions, including the need to return to the ED if symptoms do not improve, worsen, or if there are any questions or concerns that arise at home. The patient was discharged in stable condition. Administered Medications: 07:28 CANCELLED (med unavailablee): Opcon-A Drops 2 drops Ophthalmic once bp Disposition: 06:52 Co-signature as Attending Physician, Aron Mahan DO. tt7 Disposition Summary: 07/05/25 06:36 Discharge Ordered Notes: Location: Home tt7 Problem: an ongoing problem tt7 Symptoms: are unchanged tt7 Condition: Stable tt7 Diagnosis - Other viral conjunctivitis tt7 Followup: tt7 - With: Emergency Department - When: As needed - Reason: Followup: tt7 - With: Private Physician - When: 1 - 2 days - Reason: Recheck today's complaints, Re-evaluation by your physician Discharge Instructions: - Discharge Summary Sheet tt7 - How to Use Eye Drops and Eye Ointments tt7 - Viral Conjunctivitis, Adult tt7 Forms: - Medication Reconciliation Form tt7 - Antibiotic Education tt7 - Prescription Opioid Use tt7 - Patient Portal Instructions tt7 - Leadership Thank You Letter tt7 Prescriptions: - Opcon-A 0.30981-3.315 % Ophthalmic drops - instill 2 drop OPHTHALMIC route 2 to 4 times per day for 5 days as needed for tt7 eye irritation; 1 unit; Refills: 0, Product Selection Permitted Signatures: Garima Shook RN RN tb4 Aron Mahan DO DO tt7 Quoc Demarco RN bp Corrections: (The following items were deleted from the chart) 07:28 06:34 Opcon-A Drops 2 drops Ophthalmic once ordered. tt7 bp
--- NOTE | 2025-07-05 07:29 | ER ---
Nurse's Notes [facility] Name: Kiel Ngo Age: 74 yrs Sex: Male : 1950 Arrival Date: 07/05/2025 Time: 06:11 Bed 13 Private MD: Diagnosis: Other viral conjunctivitis Presentation: 07/05 06:28 Chief complaint: EMS states: Patient c/o left eye infection and pain that is now moving tb4 to the right eye x1 week. Coronavirus screen: At this time, the client does not indicate any symptoms associated with coronavirus-19. Ebola Screen: No symptoms or risks identified at this time. Initial Sepsis Screen: Does the patient meet any 2 criteria? No. Patient's initial sepsis screen is negative. Does the patient have a suspected source of infection? No. Patient's initial sepsis screen is negative. Risk Assessment: Do you want to hurt yourself or someone else? Patient reports no desire to harm self or others. Onset of symptoms was June 28, 2025. 06:28 Method Of Arrival: EMS: [facility] 4 06:28 Acuity: JOZEF 4 tb4 Triage Assessment: 06:43 General: Appears in no apparent distress. Behavior is calm, cooperative. Pain: tb4 Complains of pain in right eye and left eye Pain does not radiate. Pain currently is 8 out of 10 on a pain scale. Quality of pain is described as burning, Pain began gradually, over one week Is continuous. EENT: Eyes with exudate noted from right inner canthus, right lower eyelid, left inner canthus and left lower eyelid. Neuro: Level of Consciousness is awake, alert, obeys commands, Oriented to person, place, time, situation. Respiratory: Airway is patent Respiratory effort is even, unlabored, Respiratory pattern is regular, symmetrical. GI: No signs and/or symptoms were reported involving the gastrointestinal system. : No signs and/or symptoms were reported regarding the genitourinary system. Derm: No signs and/or symptoms reported regarding the dermatologic system. Skin is intact, is healthy with good turgor. Musculoskeletal: No signs and/or symptoms reported regarding the musculoskeletal system. Historical: - Allergies: 06:43 Demerol; tb4 06:43 metformin; tb4 - Home Meds: 06:43 Alprazolam Oral [Active]; Ambien Oral [Active]; Benadryl Oral [Active]; tb4 - PMHx: 06:43 Atrial fibrillation; chronic back pain; neuropathy; Chronic right leg pain; lymphedema; tb4 - PSHx: 06:43 back sx; PANCREAS SX; R. Ankle SX; tb4 - Immunization history:: Adult Immunizations up to date. - Infectious Disease History:: Denies. - Social history:: Smoking status: Patient denies any tobacco usage or history of. Patient/guardian denies using alcohol, street drugs, tobacco products. Screenin:50 [facility] ED Fall Risk Assessment (Adult) History of falling in the last 3 months, tb4 including since admission No falls in past 3 months (0 pts) Confusion or Disorientation No (0 pts) Intoxicated or Sedated No (0 pts) Impaired Gait Yes (1 pt) Mobility Assist Device Used Yes (1 pt) Altered Elimination No (0 pt) Score/Fall Risk Level 0 - 2 = Low Risk Maintained a safe environment. Abuse screen: Denies threats or abuse. Denies injuries from another. Nutritional screening: No deficits noted. Tuberculosis screening: No symptoms or risk factors identified. Assessment: 06:50 General: Appears in no apparent distress. Behavior is calm, cooperative. Pain: tb4 Complains of pain in right eye and left eye Pain does not radiate. Pain currently is 8 out of 10 on a pain scale. Quality of pain is described as burning, Pain began gradually. Neuro: Level of Consciousness is awake, alert, obeys commands, Oriented to person, place, time, situation, Gait is Patient is bed bound. Speech is normal, Facial symmetry appears normal. Cardiovascular: Patient's skin is warm and dry. Respiratory: Airway is patent Respiratory effort is even, unlabored, Respiratory pattern is regular, symmetrical. GI: No signs and/or symptoms were reported involving the gastrointestinal system. : No signs and/or symptoms were reported regarding the genitourinary system. EENT: Eyes with exudate noted from right inner canthus, right lower eyelid, left inner canthus and left lower eyelid Reports pain in right eye and left eye Pain is 8 out of 10 on a pain scale. Derm: Skin is intact, is healthy with good turgor, Skin is dry, Skin is normal. Musculoskeletal: No signs and/or symptoms reported regarding the musculoskeletal system. Vital Signs: 06:28 BP 171 / 91; Pulse 99; Resp 19; Pulse Ox 97% on R/A; Weight 83.91 kg; Height 5 ft. 11 tb4 in. ; Pain 8/10; 06:43 BP 165 / 85; Pulse 94; Resp 19; Pulse Ox 100% on R/A; tb4 06:28 Body Mass Index 25.80 (83.91 kg, 180.34 cm) tb4 06:28 Pain Scale: Adult tb4 ED Course: 06:21 Patient arrived in ED. rv1 06:24 Aron Mahan DO is Attending Physician. tt7 06:43 Triage completed. tb4 06:43 Arm band placed on right wrist. tb4 06:50 Patient has correct armband on for positive identification. Call light in reach. Side tb4 rails up X 1. Side rails up X2. Client placed on continuous cardiac and pulse oximetry monitoring. NIBP monitoring applied. 06:50 No provider procedures requiring assistance completed. tb4 06:58 Quoc Demarco, RN is Primary Nurse. bp 07:28 Patient did not have IV access during this emergency room visit. bp Administered Medications: 07:28 CANCELLED (med unavailablee): Opcon-A Drops 2 drops Ophthalmic once bp Medication: 06:50 VIS not applicable for this client. tb4 Outcome: 06:36 Discharge ordered by MD. tt7 07:28 Discharged to home via ambulance, bp 07:28 Condition: stable 07:28 Discharge instructions given to patient, Instructed on discharge instructions, follow up and referral plans. medication usage, Demonstrated understanding of instructions, follow-up care, medications, Prescriptions given X 1, 07:28 Patient left the ED. bp Signatures: Quoc Demarco, RN RN Linda Reno rv1 Garima Shook RN RN tb4 rAon Mahan DO DO tt7
[2025-07-05 07:35] VITALS: BP 165/85; O2SAT 100
== END 2025-07-05 07:28 | disposition home or self-care (01) ==
LOC: ER 06:11
DX: H10.89 Other conjunctivitis (principal)
CPT/HCPCS: 99283

== ENCOUNTER 2025-08-05 17:13 | Emergency (ER) | payer OTHER ==
--- NOTE | 2025-08-05 17:32 | EDPHYS ---
Physician Documentation [facility] Name: Kiel Ngo Age: 74 yrs Sex: Male : 1950 Arrival Date: 08/05/2025 Time: 17:13 Bed 18 Private MD: ED Physician Rosa Harrison HPI: 08/05 17:29 This 74 yrs old Male presents to ER via Unassigned with complaints of bilateral feet sp3 pain. 17:29 74-year-old male with history of atrial fibrillation, chronic lymphedema, chronic back sp3 pain, chronic hip pain, chronic pain syndrome, neuropathy presents to the ED with bilateral foot pain. Patient has had multiple visits to the hospital for the same. He arrives via EMS. He denies any fever, chest pain, shortness breath, abdominal pain or any other signs or symptoms on ROS at this time.. Historical: - Allergies: 17:34 Demerol; ss 17:34 metformin; ss - PMHx: 17:34 Atrial fibrillation; chronic back pain; lymphedema; Chronic right leg pain; neuropathy; ss - PSHx: 17:34 back sx; PANCREAS SX; R. Ankle SX; ss - Immunization history:: Adult Immunizations. - Infectious Disease History:: Denies. - Social history:: Smoking status: Patient denies any tobacco usage or history of. ROS: 17:30 Constitutional: Negative for fever, chills, and weight loss, Eyes: Negative for injury, sp3 pain, redness, and discharge, Cardiovascular: Negative for chest pain, palpitations, and edema, Respiratory: Negative for shortness of breath, cough, wheezing, and pleuritic chest pain, Abdomen/GI: Negative for abdominal pain, nausea, vomiting, diarrhea, and constipation, Back: Negative for injury and pain, Neuro: Negative for headache, weakness, numbness, tingling, and seizure, Psych: Negative for depression, anxiety, suicide ideation, homicidal ideation, and hallucinations, 17:30 All other systems are negative, Exam: 17:30 Constitutional: This is a well developed, well nourished patient who is awake, alert, sp3 and in no acute distress. Head/Face: Normocephalic, atraumatic. Neck: Trachea midline, no thyromegaly or masses palpated, and no cervical lymphadenopathy. Supple, full range of motion without nuchal rigidity, or vertebral point tenderness. No Meningismus. Chest/axilla: Normal chest wall appearance and motion. Nontender with no deformity. No lesions are appreciated. Cardiovascular: Regular rate and rhythm with a normal S1 and S2. No gallops, murmurs, or rubs. Normal PMI, no JVD. No pulse deficits. Respiratory: Lungs have equal breath sounds bilaterally, clear to auscultation and percussion. No rales, rhonchi or wheezes noted. No increased work of breathing, no retractions or nasal flaring. Abdomen/GI: Soft, non-tender, with normal bowel sounds. No distension or tympany. No guarding or rebound. No evidence of tenderness throughout. Back: No spinal tenderness. No costovertebral tenderness. Full range of motion. Neuro: Awake and alert, GCS 15, oriented to person, place, time, and situation. Cranial nerves II-XII grossly intact. Motor strength 5/5 in all extremities. Sensory grossly intact. Cerebellar exam normal. Normal gait. 17:30 Musculoskeletal/extremity: Chronic lymphedema noted. Recently bandaged. No signs of cellulitis, or erythema.. Vital Signs: 17:29 BP 134 / 69; Pulse 89; Resp 16; Pulse Ox 99% on R/A; Weight 90.72 kg; Height 5 ft. 11 ss in. ; Pain 10/10; 17:44 Temp 98.2; kj2 18:36 BP 132 / 70; Pulse 88; Resp 20; Temp 98; Pulse Ox 100% ; kj2 17:29 Body Mass Index 27.89 (90.72 kg, 180.34 cm) ss 17:29 Pain Scale: Adult ss MDM: 17:27 Medical Screening Exam initiated sp3 17:31 Data reviewed: vital signs, nurses notes, old medical records. ED course: 74-year-old sp3 male with wound care and chronic pain of bilateral lower extremities. No acute intervention indicated in the emergency department. Patient advised follow-up with PCP and chronic pain specialist. Patient will be safely discharged home. Vital signs are normal. Clinically ruled out cellulitis, sepsis, DVT or any other critical process at this time.. Administered Medications: No medications were administered Disposition Summary: 08/05/25 17:31 Discharge Ordered Notes: Location: Home sp3 Condition: Stable sp3 Diagnosis - Chronic lymphedema, chronic pain sp3 Followup: sp3 - With: Private Physician - When: Upon discharge from the Emergency Department - Reason: Continuance of care Discharge Instructions: - Discharge Summary Sheet sp3 - Chronic Pain, Adult sp3 - Lymphedema sp3 Forms: - Medication Reconciliation Form sp3 - Antibiotic Education sp3 - Prescription Opioid Use sp3 - Patient Portal Instructions sp3 - Leadership Thank You Letter sp3 Signatures: Paris Carney RN RN ss Rosa Harrison MD MD sp3 Emy Pickering RN RN kj2
--- NOTE | 2025-08-05 17:32 | ER ---
Nurse's Notes [facility] Name: Kiel Ngo Age: 74 yrs Sex: Male : 1950 Arrival Date: 08/05/2025 Time: 17:13 Bed 18 Private MD: Diagnosis: Chronic lymphedema, chronic pain Presentation: 08/05 17:33 Chief complaint: Patient states: chronic bilateral leg pain. Coronavirus screen: Client ss denies travel out of the [place] in the last 14 days. Ebola Screen: Patient denies exposure to infectious person. Patient denies travel to an Ebola-affected area in the 21 days before illness onset. Initial Sepsis Screen: Does the patient meet any 2 criteria? No. Patient's initial sepsis screen is negative. Does the patient have a suspected source of infection? No. Patient's initial sepsis screen is negative. Risk Assessment: Do you want to hurt yourself or someone else? Patient reports no desire to harm self or others. Onset of symptoms is unknown. 17:33 Method Of Arrival: EMS: [facility] 17:33 Acuity: JOZEF 4 ss Historical: - Allergies: 17:34 Demerol; ss 17:34 metformin; ss - PMHx: 17:34 Atrial fibrillation; chronic back pain; lymphedema; Chronic right leg pain; neuropathy; ss - PSHx: 17:34 back sx; PANCREAS SX; R. Ankle SX; ss - Immunization history:: Adult Immunizations. - Infectious Disease History:: Denies. - Social history:: Smoking status: Patient denies any tobacco usage or history of. Screenin:45 [facility] ED Fall Risk Assessment (Adult) History of falling in the last 3 months, kj2 including since admission No falls in past 3 months (0 pts) Confusion or Disorientation No (0 pts) Intoxicated or Sedated No (0 pts) Impaired Gait Yes (1 pt) Mobility Assist Device Used Yes (1 pt) Altered Elimination No (0 pt) Score/Fall Risk Level 0 - 2 = Low Risk Maintained a safe environment, Hourly rounding (assess needs \T\ fall precautionary measures) done. Abuse screen: Denies threats or abuse. Denies injuries from another. Nutritional screening: No deficits noted. Tuberculosis screening: No symptoms or risk factors identified. Assessment: 17:43 General: Appears in no apparent distress. Behavior is cooperative. Pain: Complains of kj2 pain in bilat legs Pain currently is 4 out of 10 on a pain scale. Neuro: Level of Consciousness is awake, alert, obeys commands, Oriented to person, place, time, situation. Cardiovascular: Patient's skin is warm and dry. Respiratory: Airway is patent Respiratory effort is even, unlabored. GI: No signs and/or symptoms were reported involving the gastrointestinal system. : No signs and/or symptoms were reported regarding the genitourinary system. 18:02 Reassessment: RN called to notify of discharge [phone]. kj2 18:04 Reassessment: awaiting EMS transportation to home. kj2 Vital Signs: 17:29 BP 134 / 69; Pulse 89; Resp 16; Pulse Ox 99% on R/A; Weight 90.72 kg; Height 5 ft. 11 ss in. ; Pain 10/10; 17:44 Temp 98.2; kj2 18:36 BP 132 / 70; Pulse 88; Resp 20; Temp 98; Pulse Ox 100% ; kj2 17:29 Body Mass Index 27.89 (90.72 kg, 180.34 cm) ss 17:29 Pain Scale: Adult ss ED Course: 17:27 Patient arrived in ED. sp3 17:27 Rosa Harrison MD is Attending Physician. sp3 17:29 Arm band placed on left wrist. ss 17:34 Triage completed. 17:43 Emy Pickering RN is Primary Nurse. kj2 17:45 Patient has correct armband on for positive identification. Bed in low position. Call kj2 light in reach. Provided Education on: call light. 17:46 No provider procedures requiring assistance completed. Patient did not have IV access kj2 during this emergency room visit. Administered Medications: No medications were administered Medication: 17:46 VIS not applicable for this client. kj2 Outcome: 17:31 Discharge ordered by . sp3 18:36 Discharged to home via ambulance, kj2 18:36 Condition: stable 18:36 Discharge instructions given to patient, Instructed on discharge instructions, follow up and referral plans. Demonstrated understanding of instructions, follow-up care, 18:37 Patient left the ED. kj2 Signatures: Paris Carney RN RN Rosa Harrison MD MD sp3 Raheel, Emy, RN RN kj2
[2025-08-06 01:18] VITALS: BP 132/70; TEMP 98; O2SAT 100
== END 2025-08-05 18:37 | disposition home or self-care (01) ==
LOC: ER 17:13
DX: I89.0 Lymphedema, not elsewhere classified (principal); G89.29 Other chronic pain
CPT/HCPCS: 99283

== ENCOUNTER 2025-08-06 18:40 | Emergency (ER) | payer OTHER ==
--- NOTE | 2025-08-06 18:51 | ER ---
Nurse's Notes [facility] Name: Kiel Ngo Age: 74 yrs Sex: Male : 1950 Arrival Date: 08/06/2025 Time: 18:40 Bed 4 Private MD: Diagnosis: Chronic pain, not elsewhere classified Presentation: 08/06 18:42 Coronavirus screen: Client denies travel out of the [place] in the last 14 days. Initial ss Sepsis Screen: Does the patient meet any 2 criteria? No. Patient's initial sepsis screen is negative. Does the patient have a suspected source of infection? No. Patient's initial sepsis screen is negative. Risk Assessment: Do you want to hurt yourself or someone else? Patient reports no desire to harm self or others. Onset of symptoms is unknown. 18:42 Method Of Arrival: EMS: [facility] ss 18:48 Chief complaint: Patient states: chronic bilateral leg pain. Ebola Screen: Patient ss denies exposure to infectious person. Patient denies travel to an Ebola-affected area in the 21 days before illness onset. 18:48 Acuity: JOZEF 4 ss Historical: - Allergies: 18:42 Demerol; ss 18:42 metformin; ss - PMHx: 18:42 Atrial fibrillation; neuropathy; lymphedema; Chronic right leg pain; chronic back pain; ss - PSHx: 18:42 back sx; PANCREAS SX; R. Ankle SX; ss - Immunization history:: Adult Immunizations unknown. - Infectious Disease History:: Denies. - Family history:: not pertinent. - Social history:: Smoking status: Patient denies any tobacco usage or history of. - Hospitalizations: : No recent hospitalization is reported. Screenin:17 [facility] ED Fall Risk Assessment (Adult) History of falling in the last 3 months, bp including since admission No falls in past 3 months (0 pts) Confusion or Disorientation No (0 pts) Intoxicated or Sedated No (0 pts) Impaired Gait No (0 pts) Mobility Assist Device Used No (0 pt) Altered Elimination No (0 pt) Score/Fall Risk Level 0 - 2 = Low Risk Oriented to surroundings, Maintained a safe environment, Educated pt \T\ family on fall prevention, incl call for assistance when getting out of bed, Assessed \T\ reinforced patient's understanding of fall precautions, Hourly rounding (assess needs \T\ fall precautionary measures) done, Used ambulatory aids as needed (educated on \T\ assisted with), Used gait belt as appropriate. Abuse screen: Denies threats or abuse. Nutritional screening: No deficits noted. Tuberculosis screening: No symptoms or risk factors identified. Assessment: 19:17 General: Appears in no apparent distress. comfortable, Behavior is calm, cooperative, bp appropriate for age. Pain: Complains of pain in right leg and left leg Pain currently is 6 out of 10 on a pain scale. Neuro:. Musculoskeletal: Reports pain in right leg and left leg pt reports chronic leg pain. Vital Signs: 18:48 BP 143 / 86; Pulse 81; Resp 16; Temp 98.8(O); Pulse Ox 100% on R/A; Weight 90.72 kg; ss Height 5 ft. 11 in. ; Pain 10/10; 19:17 BP 158 / 77; Pulse 83; Resp 17; Temp 98.8; Pulse Ox 100% ; Pain 6/10; bp 18:48 Body Mass Index 27.89 (90.72 kg, 180.34 cm) ss 18:48 Pain Scale: Adult ss 19:17 Pain Scale: Adult bp Gayathri Coma Score: 19:17 Eye Response: spontaneous(4). Motor Response: obeys commands(6). Verbal Response: bp oriented(5). Total: 15. ED Course: 18:40 Patient arrived in ED. ss 18:46 Michael Bosch MD is Attending Physician. rn 18:48 Arm band placed on right wrist. ss 18:49 Triage completed. ss 18:54 Quoc Demarco, RN is Primary Nurse. bp 19:17 Patient has correct armband on for positive identification. Bed in low position. Call bp light in reach. Side rails up X2. Provided Education on: post er care. Client placed on continuous cardiac and pulse oximetry monitoring. NIBP monitoring applied. Pulse ox on. NIBP on. Door closed. Noise minimized. Warm blanket given. Pillow given. Verbal reassurance given. Head of bed elevated. 19:17 No provider procedures requiring assistance completed. Patient did not have IV access bp during this emergency room visit. Administered Medications: 19:10 Drug: Ketorolac IM 30 mg IM once Route: IM; Site: right deltoid; bp 19:21 Follow up: Response: No adverse reaction bp Medication: 19:17 VIS not applicable for this client. bp Outcome: 18:51 Discharge ordered by . rn 19:17 Discharged to home via ambulance, bp 19:17 Condition: stable 19:17 Discharge instructions given to patient, Instructed on discharge instructions, follow up and referral plans. Demonstrated understanding of instructions, follow-up care, 19:21 Patient left the ED. bp Signatures: Michael Bosch MD MD rn Blanchard, Shelby, RN RN ss Quoc Demarco RN RN bp
--- NOTE | 2025-08-06 18:51 | EDPHYS ---
Physician Documentation [facility] Name: Kiel Ngo Age: 74 yrs Sex: Male : 1950 Arrival Date: 08/06/2025 Time: 18:40 Bed 4 Private MD: ED Physician Michael Bosch HPI: 08/06 18:47 This 74 yrs old Male presents to ER via EMS with complaints of Leg Pain. rn 18:47 Patient presents with chronic leg pain. Seen here last night for the same. Multiple rn visits for the same. Denies any new injury or symptoms. No change in appearance. No redness or warmth. No fever or chills. No trauma. Patient reports ran out of his pain medication so came here. No fall. No significant swelling. No chest pain or shortness of breath. Patient states seeing his pain management doctor at the end of this month.. Historical: - Allergies: 18:42 Demerol; ss 18:42 metformin; ss - PMHx: 18:42 Atrial fibrillation; neuropathy; lymphedema; Chronic right leg pain; chronic back pain; ss - PSHx: 18:42 back sx; PANCREAS SX; R. Ankle SX; ss - Immunization history:: Adult Immunizations unknown. - Infectious Disease History:: Denies. - Family history:: not pertinent. - Social history:: Smoking status: Patient denies any tobacco usage or history of. - Hospitalizations: : No recent hospitalization is reported. ROS: 18:47 Constitutional: Negative for fever, chills, and weight loss, Cardiovascular: Negative rn for chest pain, palpitations, and edema, Respiratory: Negative for shortness of breath, cough, wheezing, and pleuritic chest pain, Abdomen/GI: Negative for abdominal pain, nausea, vomiting, diarrhea, and constipation, MS/Extremity: Positive for chronic pain to bilateral lower extremities Neuro: Negative for headache, weakness, numbness, tingling, and seizure, Exam: 18:47 Constitutional: Chronically ill patient, no acute distress Head/Face: Normocephalic, rn atraumatic. Cardiovascular: Regular rate and rhythm. No pulse deficits. Respiratory: No increased work of breathing, no retractions or nasal flaring. Abdomen/GI: Soft, nontender, no masses MS/ Extremity: No cyanosis. No evidence of cellulitis of either lower extremity. Patient has legs wrapped secondary to lymphedema but legs are not even swollen, has nonpitting edema bilateral lower extremities. No fluctuance. No painful range of motion of knees or hips Neuro: Awake and alert, GCS 15 Vital Signs: 18:48 BP 143 / 86; Pulse 81; Resp 16; Temp 98.8(O); Pulse Ox 100% on R/A; Weight 90.72 kg; ss Height 5 ft. 11 in. ; Pain 10/10; 19:17 BP 158 / 77; Pulse 83; Resp 17; Temp 98.8; Pulse Ox 100% ; Pain 6/10; bp 18:48 Body Mass Index 27.89 (90.72 kg, 180.34 cm) ss 18:48 Pain Scale: Adult ss 19:17 Pain Scale: Adult bp Gayathri Coma Score: 19:17 Eye Response: spontaneous(4). Motor Response: obeys commands(6). Verbal Response: bp oriented(5). Total: 15. MDM: 18:46 Medical Screening Exam initiated rn 18:47 Differential diagnosis: Chronic leg pain, lymphedema, neuropathy. Data reviewed: vital rn signs, nurses notes, old medical records, Reviewed old medical records, multiple visits for chronic leg pain and neuropathy. and as a result, I will discharge patient. Counseling: I had a detailed discussion with the patient and/or guardian regarding the historical points, exam findings, and any diagnostic results supporting the discharge/admit diagnosis, the need for outpatient follow up, to return to the emergency department if symptoms worsen or persist or if there are any questions or concerns that arise at home. Special discussion: I discussed with the patient/guardian in detail that at this point there is no indication for admission to the hospital. It is understood, however, that if the symptoms persist or worsen the patient needs to return immediately for re-evaluation. ED course: Had long discussion with patient regarding why we were not treating his chronic pain with narcotic pain medication. Patient seems to understand but we have had this talk before with the patient. Told him he would have to follow-up with his pain management doctor for further pain management. No indication for emergent testing or imaging at this time. No evidence of cellulitis or wounds to indicate need for emergent antibiotics.. Administered Medications: 19:10 Drug: Ketorolac IM 30 mg IM once Route: IM; Site: right deltoid; bp 19:21 Follow up: Response: No adverse reaction bp Disposition Summary: 08/06/25 18:51 Discharge Ordered Notes: Location: Home rn Problem: chronic rn Symptoms: are unchanged rn Condition: Stable rn Diagnosis - Chronic pain, not elsewhere classified rn Followup: rn - With: Private Physician - When: As needed - Reason: Recheck today's complaints, Re-evaluation by your physician Discharge Instructions: - Discharge Summary Sheet rn - Chronic Pain, Adult rn Forms: - Medication Reconciliation Form rn - 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
[2025-08-06] MEDS ORDERED: KETOROLAC 30 MG/ML INJ ONE (18:58)
[2025-08-06 19:25] VITALS: TEMP 98.8; O2SAT 100
[2025-08-06 19:26] VITALS: BP 158/77
== END 2025-08-06 19:21 | disposition home or self-care (01) ==
LOC: ER 18:40
DX: G89.29 Other chronic pain (principal)
CPT/HCPCS: 96372; 99284; J1885